=== PATIENT | male | born 1950 | race Caucasian/White ===

== ENCOUNTER 2022-12-06 10:55 | Outpatient (RCR) | payer MEDICARE, SELFPAY ==
[2022-12-05 13:46] LABS: Hemoglobin 7.5 g/dL (14.0-18.0)
[2022-12-05 14:01] LABS: Hematocrit 22.8 % (42.0-54.0)
[2022-12-06 10:55] VITALS: BP 97/62; PULSE 92; RESP 20; TEMP 36.3; O2SAT 100
--- NOTE | 2022-12-06 11:05 | PC.NURSE ---
Patient is here for blood transfusion, blood consent obtained, port accessed with blood return.
[2022-12-06] MEDS: 0.9 % SODIUM CHLORIDE 250 ML 40 ML IV (11:24)
[2022-12-06] MEDS: ACETAMINOPHEN 325 MG TABLET 650 MG PO (11:24)
[2022-12-06] MEDS: DIPHENHYDRAMINE HCL 25 MG CAPSULE PO (11:24)
[2022-12-06 11:50] VITALS: BP 97/62; PULSE 92; RESP 20; TEMP 36.3; O2SAT 100
[2022-12-06 12:07] VITALS: BP 101/62; PULSE 72; RESP 18; TEMP 36.6; O2SAT 99
[2022-12-06 13:07] VITALS: BP 104/68; PULSE 65; RESP 18; TEMP 37; O2SAT 99
--- NOTE | 2022-12-06 13:09 | PC.NURSE ---
Patient is tolerating blood transfusion well without any complaints. His vitals are stable and denies any s/s of infusion reaction. We will continue to monitor.
[2022-12-06 13:35] VITALS: BP 100/63; PULSE 73; RESP 18; TEMP 36.8; O2SAT 100
--- NOTE | 2022-12-06 13:37 | PC.NURSE ---
Patient tolerated blood transfusion well without incident. Vitals remained stable, he states he is feeling good and denies any complaints. Patient was discharged home with .
== END 2022-12-19 23:59 | disposition home or self-care (01) ==
LOC: INF 10:55
DX: D64.9 Anemia, unspecified (principal); C25.9 Malignant neoplasm of pancreas, unspecified
CPT/HCPCS: 36415; 36430; 36591; 85014; 85018; 86850; 86900; 86901; 86920; P9016

== ENCOUNTER 2022-12-21 12:46 | Outpatient (OUT) | payer MEDICARE, SELFPAY ==
--- NOTE | 2022-12-21 13:30 | CT_ITS ---
The [address] [address] Patient Name: TRINITY PERRY MRN: [id number] date: 1950 Sex: M Assigned Patient Location: [facility] Current Patient Location: [facility] Accession/Order Number: [id number] Exam Date: 12/21/2022 13:10 Report Date: 12/21/2022 13:45 At the request of: NON-STAFF PHYSICIAN Procedure: CT angio chest EXAM: CT angio chest HISTORY: chest pain R07.9 shortness of breath. COMPARISON: None. TECHNIQUE: Following intravenous administration of contrast, axial soft tissue and lung windows of the chest were performed with coronal and sagittal reformats. 3-D MIPS reconstructions were created and reviewed. CT dose reduction technique was used including Automated Exposure Control. Findings: The heart is nonenlarged. No pericardial effusion. The thoracic aorta is normal caliber with mild atherosclerotic disease. There is adequate opacification of the pulmonary arteries. No evidence of pulmonary embolism. The central airways are patent. No pneumothorax. No pleural effusion. No focal consolidation. There are subtle nodular tree-in-bud opacities predominantly within the right upper lobe. No enlarged mediastinal, hilar, axillary or supraclavicular lymph nodes. Splenic calcifications likely relating to prior granulomatous disease. Postsurgical changes involving the stomach. Partially visualized stent within the pancreas. Partially visualized left renal cysts. No aggressive sclerotic or lytic osseous lesions. Mild multilevel degenerative spondylosis. CT/CT angio chest IMPRESSION: 1. No pulmonary embolism. 2. Subtle nodular tree-in-bud opacities predominantly within the right upper lobe concerning for bronchiolitis, likely infectious. Electronically authenticated by: CATHY FORMAN Date: 12/21/2022 13:45
== END 2022-12-21 12:47 | disposition home or self-care (01) ==
DX: R07.9 Chest pain, unspecified (principal); R06.09 Other forms of dyspnea; C25.7 Malignant neoplasm of other parts of pancreas; D64.9 Anemia, unspecified; E11.9 Type 2 diabetes mellitus without complications; Z79.4 Long term (current) use of insulin
CPT/HCPCS: 71275; Q9967

== ENCOUNTER 2023-10-03 13:00 | Outpatient (OUT) | payer MEDICARE, SELFPAY ==
--- NOTE | 2023-10-03 13:03 | US_ITS ---
The [address] [address] Patient Name: TRINITY PERRY MRN: [id number] date: 1950 Sex: M Assigned Patient Location: [place] Current Patient Location: [place] Accession/Order Number: [id number] Exam Date: 10/03/2023 13:05 Report Date: 10/03/2023 14:11 At the request of: MISTY WETZEL Procedure: US venous doppler LE BI EXAMINATION: US venous doppler LE BI HISTORY: Leg Swelling COMPARISON: No relevant comparison available. FINDINGS: REGION: Bilateral extremities THROMBI: None. COMPRESSIBILITY: Normal compressibility. FLOW: Normal waveform and antegrade flow between 5 and 20 cm/s. OTHER: None. US/US venous doppler LE BI IMPRESSION: 1. No deep vein thrombus within the right or left lower extremity. Electronically authenticated by: SID MURRAY Date: 10/03/2023 14:11
== END 2023-10-03 13:01 | disposition home or self-care (01) ==
LOC: US 13:00
PROVIDERS: Visit Provider Physician Assistant Medical
DX: M79.89 Other specified soft tissue disorders (principal)
CPT/HCPCS: 93970

== ENCOUNTER 2023-10-16 20:27 | Observation (INO) | payer MEDICARE, SELFPAY ==
[2023-10-16] VITALS (25 sets, daily range): BP systolic 108–135; BP diastolic 60–73; PULSE 60–72; TEMP 36.7–37.3; O2SAT 90–100; BMI 23.8
--- NOTE | 2023-10-16 20:30 | CT_ITS ---
The [address] [address] Patient Name: TRINITY PERRY MRN: [id number] date: 1950 Sex: M Assigned Patient Location: ER Current Patient Location: ER Accession/Order Number: [id number] Exam Date: 10/16/2023 21:15 Report Date: 10/16/2023 21:58 At the request of: BALWINDER MARKER Procedure: CT head/brain wo con EXAM: CT head/brain wo con HISTORY: AMS COMPARISON: None. TECHNIQUE: Axial CT scans through the head were obtained without IV contrast administration. Dose reduction techniques were achieved by using: automated exposure control and/or adjustment of mA and /or kV according to patient size and/or use of iterative reconstruction technique. FINDINGS: There is no evidence of acute intracranial hemorrhage or abnormal extra-axial fluid collection. No mass effect or midline shift is seen. There is no evidence of large acute territorial infarction. There is no hydrocephalus. Mild enlarged ventricles and sulci, consistent with age appropriate cerebral atrophy. Mild decreased attenuation of the supratentorial white matter, likely represents chronic microvascular ischemia. To the limit of CT, the posterior fossa appears unremarkable. No definite acute fracture is identified. Soft tissues are unremarkable. The visualized orbits show no abnormality. The visualized paranasal sinuses show no air-fluid level. Mastoid air cells are clear. CT/CT head/brain wo con IMPRESSION: No CT evidence of acute intracranial abnormality. If there is sufficient clinical concern for acute brain parenchymal pathology, consider MRI for further evaluation. Mild chronic microvascular ischemia and involutional changes. Electronically authenticated by: ELADIO FOOTE Date: 10/16/2023 21:58
--- NOTE | 2023-10-16 20:32 | XR_ITS ---
The [address] [address] Patient Name: TRINITY PERRY MRN: [id number] date: 1950 Sex: M Assigned Patient Location: ER Current Patient Location: ER Accession/Order Number: [id number] Exam Date: 10/16/2023 21:15 Report Date: 10/16/2023 21:37 At the request of: BALWINDER MARKER Procedure: XR chest 1V ONE-VIEW CHEST RADIOGRAPH, 10/16/2023 9:15 PM EDT COMPARISON: None. CLINICAL HISTORY: AMS/confusion and weakness. Patient from home with blood sugar reported low then high by squad. History of pancreatic CA. FINDINGS: Right internal jugular portacatheter in place with tip in superior vena cava. No acute cardiopulmonary disease. No pulmonary edema, pneumothorax, or pleural effusion. Normal heart size. No acute osseous abnormality. XR/XR chest 1V IMPRESSION: No acute abnormality identified. Electronically authenticated by: Isiah THOMAS Date: 10/16/2023 21:37
--- OUTSIDE RECORDS SUMMARY | 2023-10-16 20:38 | XMS_ITS | CCD ---
Author Organization [facility] Care Team Providers Care Cabinet Maker Name Role Phone Giovanni Salinas Primary Care Provider FARA MONACO Referring Unavailable GIOVANNI SALINAS Primary Care Unavailable GIOVANNI SALINAS Primary Care Unavailable GILBERT FRANCO Referring Unavailable PRAVEEN ALVAREZ Admluis enrique Unavailable BRAD, DR EAST Primary Care Unavailable PRAVEEN ALVAREZ Attending Unavailable BRAD, DR EAST Primary Care Unavailable PRAVEEN ALVAREZ Attending Unavailable PRAVEEN ALVAREZ Admitting Unavailable BRAD, DR EAST Primary Care Unavailable PRAVEEN ALVAREZ Attending Unavailable PRAVEEN ALVAREZ Admitting Unavailable BRAD, DR EAST Primary Care Unavailable PRAVEEN ALVAREZ Attending Unavailable PRAVEEN ALVAREZ Admitting Unavailable BRAD, DR EAST Primary Care Unavailable PRAVEEN ALVAREZ Attending Unavailable PRAVEEN ALVAREZ Admitting Unavailable BRAD, DR EAST Primary Care Unavailable PRAVEEN ALVAREZ Attending Unavailable PRAVEEN ALVAREZ Admitting Unavailable BRAD, DR EAST Primary Care Unavailable PRAVEEN ALVAREZ Admitting Unavailable PRAVEEN ALVAREZ Attending Unavailable BRAD, DR ESAT Primary Care Unavailable PRAVEEN ALVAREZ Admitting Unavailable PRAVEEN ALVAREZ Attending Unavailable BRAD, DR EAST Primary Care Unavailable PRAVEEN ALVAREZ Admitting Unavailable PRAVEEN ALVAREZ Attending Unavailable MISC, DR PADRON Consulting Unavailable MISC, DR PADRON Attending Unavailable MISC, DR PADRON Admitting Unavailable BRAD, DR EAST Primary Care Unavailable BRAD, DR EAST Attending Unavailable BRAD, DR EAST Admitting Unavailable BRAD, DR EAST Primary Care Unavailable BRAD, DR EAST Consulting Unavailable MISC, DR PADRON Attending Unavailable MISC, DR PADRON Admitting Unavailable BRAD, DR EAST Primary Care Unavailable BRAD, DR EAST Consulting Unavailable BRAD, DR EAST Admitting Unavailable BRAD, DR EAST Primary Care Unavailable BRAD, DR EAST Consulting Unavailable BRAD, DR EAST Attending Unavailable BRAD, DR EAST Primary Care Unavailable PRAVEEN ALVAREZ Admitting Unavailable PRAVEEN ALVAREZ Attending Unavailable Giovanni Salinas II Primary Care Provider César Leiva Firas Unavailable Mehreen Leivamad Firas Unavailable Giovanni Salinas II Primary Care Provider César Leiva Firas Unavailable Aime SALMON, Josephine Mi Unavailable Grace Bess MD Unavailable [phone] Greta Wetzel PA-C Unavailable Zayda ENCARNACION Consulting Unavailable FARA MONACO Attending Unavailable FARA MONACO Admitting Unavailable GIOVANNI SALINAS II Primary Care Unavailable Giovanni Salinas II Primary Care Provider Cali, César Firas Unavailable Josephine Salomon RN Unavailable Grace Bess MD Unavailable Greta Wetzel PA-C Unavailable César Leiva MD Unavailable MARIO Salinas Primary Care Provider [phone] DANIKA Padilla Emergency Provider [phone] Brad MARTIN MD, Daniel B Primary Care Provider Josephine Salomon RN Unavailable [phone] Jemma Padilla Attending Unavailable Jemma Padilla Admitting Unavailable Giovanni Salinas Primary Care Unavailable GIOVANNI SALINAS Attending Unavailable Ibis Buchanan RD Unavailable Giovanni Salinas MD Unavailable Giovanni Salinas MD Primary Care Provider Brad MARTIN MD, Daniel B Primary Care Provider GIOVANNI SALINAS II Primary Care Unavailable KARAMLOU, GRACE Referring Unavailable KARAMLOU, GRACE Attending Unavailable SALINAS II, GIOVANNI B Primary Care Unavailable KARAMLOU, GRACE Referring Unavailable SALINAS II, GIOVANNI B Primary Care Unavailable KARAMLOU, GRACE Referring Unavailable SALINAS II, GIOVANNI B Primary Care Unavailable YORDY MONCADA Attending Unavailable KARAMLOU, GRACE Referring Unavailable KARAMLOU, GRACE Referring Unavailable SALINAS II, GIOVANNI B Primary Care Unavailable SALINAS II, GIOVANNI B Primary Care Unavailable GRETA WETZEL M Referring Unavailable SALINAS II, GIOVANNI B Primary Care Unavailable GRETA WETZEL M Referring Unavailable GRETA WETZEL Attending Unavailable SALINAS II, GIOVANNI B Primary Care Unavailable GRETA WETZEL M Referring Unavailable SALINAS II, GIOVANNI B Primary Care Unavailable KARAMLOU, GRACE Referring Unavailable SALINAS II, GIOVANNI B Primary Care Unavailable KARAMLOU, GRACE Referring Unavailable KARAMLOU, GRACE Referring Unavailable SALINAS II, GIOVANNI B Primary Care Unavailable KARAMLOU, GRACE Attending Unavailable SALINAS II, GIOVANNI B Primary Care Unavailable KARAMLOU, GRACE Referring Unavailable GRETA WETZEL Attending Unavailable SALINAS II, GIOVANNI B Primary Care Unavailable KARAMLOU, GRACE Referring Unavailable SALINAS II, GIOVANNI B Primary Care Unavailable KARAMLOU, GRACE Referring Unavailable SALINAS II, GIOVANNI B Primary Care Unavailable SALINAS II, GIOVANNI B Primary Care Unavailable GRETA WETZEL M Referring Unavailable KARAMLOU, GRACE Referring Unavailable SALINAS II, GIOVANNI B Primary Care Unavailable KARAMLOU, GRACE Referring Unavailable SALINAS II, GIOVANNI B Primary Care Unavailable KARAMLOU, GRACE Attending Unavailable SALINAS II, GIOVANNI B Primary Care Unavailable KARAMLOU, GRACE Referring Unavailable SALINAS II, GIOVANNI B Primary Care Unavailable KARAMLOU, GRACE Referring Unavailable SALINAS II, GIOVANNI B Primary Care Unavailable GRETA WETZEL M Referring Unavailable SALINAS II, GIOVANNI B Primary Care Unavailable KARAMLOU, GRACE Referring Unavailable GRETA WETZEL Attending Unavailable SALINAS II, GIOVANNI B Primary Care Unavailable KARAMLOU, GRACE Referring Unavailable SALINAS II, GIOVANNI B Primary Care Unavailable YORDY MONCADA Attending Unavailable KARAMLOU, GRACE Referring Unavailable SALINAS II, GIOVANNI B Primary Care Unavailable KARAMLOU, GRACE Referring Unavailable SALINAS II, GIOVANNI B Primary Care Unavailable GRETA WETZEL Referring Unavailable SALINAS II, GIOVANNI B Primary Care Unavailable KARAMLOU, GRACE Referring Unavailable SALINAS II, GIOVANNI B Primary Care Unavailable YORDY MONCADA Attending Unavailable KARAMLOU, GRACE Referring Unavailable SALINAS II, GIOVANNI B Primary Care Unavailable KARAMLOU, GRACE Referring Unavailable SALINAS II, GIOVANNI B Primary Care Unavailable KARAMLOU, GRACE Referring Unavailable SALINAS II, GIOVANNI B Primary Care Unavailable KARAMLOU, GRACE Attending Unavailable KARAMLOU, GRACE Referring Unavailable SALINAS II, GIOVANNI B Primary Care Unavailable KARAMLOU, GRACE Referring Unavailable SALINAS II, GIOVANNI B Primary Care Unavailable KARAMLOU, GRACE Referring Unavailable SALINAS II, GIOVANNI B Primary Care Unavailable KARAMLOU, GRACE Referring Unavailable SALINAS II, GIOVANNI B Primary Care Unavailable KARAMLOU, GRACE Attending Unavailable KARAMLOU, GRACE Referring Unavailable SALINAS II, GIOVANNI B Primary Care Unavailable KARAMLOU, GRACE Referring Unavailable SALINAS II, GIOVANNI B Primary Care Unavailable GRETA WETZEL Referring Unavailable SALINAS II, GIOVANNI B Primary Care Unavailable KARAMLOU, GRACE Referring Unavailable SALINAS II, GIOVANNI B Primary Care Unavailable SALINAS II, GIOVANNI B Primary Care Unavailable KARAMLOU, GRACE Referring Unavailable IBIS BUCHANAN Attending Unavailabl e SALINAS II, GIOVANNI B Primary Care Unavailable KARAMLOU, GRACE Referring Unavailable SALINAS II, GIOVANNI B Primary Care Unavailable KARAMLOU, GRACE Referring Unavailable YORDY MONCADA Attending Unavailable SALINAS II, GIOVANNI B Primary Care Unavailable KARAMLOU, GRACE Referring Unavailable SALINAS II, GIOVANNI B Primary Care Unavailable KARAMLOU, GRACE Referring Unavailable SALINAS II, GIOVANNI B Primary Care Unavailable KARAMLOU, GRACE Referring Unavailable SALINAS II, GIOVANNI B Primary Care Unavailable KARAMLOU, GRACE Referring Unavailable SALINAS II, GIOVANNI B Primary Care Unavailable KARAMLOU, GRACE Referring Unavailable IBIS BUCHANAN Attending Unavailabl e SALINAS II, GIOVANNI B Primary Care Unavailable GRETA WETZEL Referring Unavailable SALINAS II, GIOVANNI B Primary Care Unavailable KARAMLOU, GRACE Referring Unavailable SALINAS II, GIOVANNI B Primary Care Unavailable KARAMLOU, GRACE Attending Unavailable KARAMLOU, GRACE Referring Unavailable SALINAS II, GIOVANNI B Primary Care Unavailable KARAMLOU, GRACE Referring Unavailable SALINAS II, GIOVANNI B Primary Care Unavailable GRETA WETZEL M Referring Unavailable SALINAS II, GIOVANNI B Primary Care Unavailable GRETA WETZEL M Referring Unavailable SALINAS II, GIOVANNI B Primary Care Unavailable KARAMLOU, GRACE Referring Unavailable GRETA WETZEL M Attending Unavailable KARAMLOU, GRACE Referring Unavailable SALINAS II, GIOVANNI B Primary Care Unavailable YORDY MONCADA Attending Unavailable KARAMLOU, GRACE Referring Unavailable SALINAS II, GIOVANNI B Primary Care Unavailable KARAMLOU, GRACE Referring Unavailable SALINAS II, GIOVANNI B Primary Care Unavailable KARAMLOU, GRACE Referring Unavailable SALINAS II, GIOVANNI B Primary Care Unavailable SALINAS II, GIOVANNI B Primary Care Unavailable KARAMLOU, GRACE Attending Unavailable KARAMLOU, GRACE Referring Unavailable SALINAS II, GIOVANNI B Primary Care Unavailable KARAMLOU, GRACE Attending Unavailable KARAMLOU, GRACE Referring Unavailable SALINAS II, GIOVANNI B Primary Care Unavailable KARAMLOU, GRACE Referring Unavailable SALINAS II, GIOVANNI B Primary Care Unavailable KARAMLOU, GRACE Referring Unavailable SALINAS II, GIOVANNI B Primary Care Unavailable KARAMLOU, GRACE Referring Unavailable GRETA WETZEL Attending Unavailable KARAMLOU, GRACE Referring Unavailable SALINAS II, GIOVANNI B Primary Care Unavailable KARAMLOU, GRACE Attending Unavailable SALINAS II, GIOVANNI B Primary Care Unavailable GRETA WETZEL M Referring Unavailable SALINAS II, GIOVANNI B Primary Care Unavailable KARAMLOU, GRAEC Referring Unavailable SALINAS II, GIOVANNI B Primary Care Unavailable KARAMLOU, GRACE Referring Unavailable GRETA WETZEL Attending Unavailable SALINAS II, GIOVANNI B Primary Care Unavailable GRETA WETZEL M Referring Unavailable SALINAS II, GIOVANNI B Primary Care Unavailable KARAMLOU, GRACE Referring Unavailable SALINAS II, GIOVANNI B Primary Care Unavailable KARAMLOU, GRACE Referring Unavailable GRETA WETZEL Attending Unavailable SALINAS II, GIOVANNI B Primary Care Unavailable KARAMLOU, GRACE Referring Unavailable SALINAS II, GIOVANNI B Primary Care Unavailable SALINAS II, GIOVANNI B Primary Care Unavailable KARAMLOU, GRACE Referring Unavailable GRETA WETZEL M Attending Unavailable KARAMLOU, GRACE Referring Unavailable SALINAS II, GIOVANNI B Primary Care Unavailable SALINAS II, GIOVANNI B Primary Care Unavailable KARAMLOU, GRACE Referring Unavailable IBIS BUCHANAN Attending Unavailabl e SALINAS II, GIOVANNI B Primary Care Unavailable KARAMLOU, GRACE Referring Unavailable SALINAS II, GIOVANNI B Primary Care Unavailable RASHARDGRETA Referring Unavailable SALINAS II, GIOVANNI B Primary Care Unavailable KARAMLOU, GRACE Referring Unavailable SALINAS II, GIOVANNI B Primary Care Unavailable KARAMLOU, GRACE Referring Unavailable SALINAS II, GIOVANNI B Primary Care Unavailable KARAMLOU, GRACE Referring Unavailable KARAMLOU, GRACE Attending Unavailable SALINAS II, GIOVANNI B Primary Care Unavailable KARAMLOU, GRACE Referring Unavailable SALINAS II, GIOVANNI B Primary Care Unavailable KARAMLOU, GRACE Attending Unavailable KARAMLOU, GRACE Referring Unavailable SALINAS II, GIOVANNI B Primary Care Unavailable KARAMLOU, GRACE Referring Unavailable SALINAS II, GIOVANNI B Primary Care Unavailable KARAMLOU, GRACE Referring Unavailable SALINAS II, GIOVANNI B Primary Care Unavailable SALINAS II, GIOVANNI B Primary Care Unavailable KARAMLOU, GRACE Attending Unavailable KARAMLOU, GRACE Referring Unavailable SALINAS II, GIOVANNI B Primary Care Unavailable KARAMLOU, GRACE Referring Unavailable Medications Current Medications Medication Drug Class(es) Dates Sig (Normalized) Sig (Original) acetaminophen 325 mg / oxyCODONE hydrochloride 5 mg oral tablet (1 source) Opioid Agonist Start: 03-18-2020 End: 04-17-2020 take 1 tablet by mouth every six hours as needed for pain oxyCODONE-acetami nophen (PERCOCET) 5-325 MG per tablet Indications: 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 100 tablet 0 03/18/2020 04/17/2020 Active amylases 24388 unt / endopeptidases 28948 unt / lipase 6000 unt delayed release oral capsule (2 sources) take 1 capsule by mouth three times daily at mealtime emekfl-sqxzkcjl-[id number] mylase (CREON) 6000 units delayed release capsule Take 1 capsule by mouth 3 times daily (with meals) 0 Active apixaban 5 mg oral tablet (1 source) Factor Xa Inhibitor take 1 tablet by mouth twice daily apixaban (ELIQUIS) 5 MG TABS tablet Take 5 mg by mouth 2 times daily 0 Active Blood Glucose Monitoring Suppl (True Metrix Meter) w/Device kit (1 source) Start: 10-26-2022 Blood Glucose Monitoring Suppl (True Metrix Meter) w/Device kit use to test BLOOD SUGAR TWICE DAILY 0 10/26/2022 Active cholecalciferol, vitamin D3, (VITAMIN D3 ORAL) (20 sources) take 1000 [IU] by mouth once daily cholecalciferol, vitamin D3, (VITAMIN D3 ORAL) Take 1,000 Units by mouth once daily. 0 Active cholecalciferol, vitamin D3, (VITAMIN D3 ORAL) Take by mouth once daily. 0 Active Comment on above: Take by mouth once d aily. Take 1,000 Units by mouth once daily. Continuous Blood Gluc Environmental Coordinator (Dexcom G7 Environmental Coordinator) device (1 source) Start: 04-17-2023 End: 04-16-2024 Continuous Blood Gluc Environmental Coordinator (Dexcom G7 Environmental Coordinator) device Indications: Type 2 diabetes mellitus without complication, without long-term current use of insulin (CMS/HCC) 1 Device yearly. 1 each 0 04/17/2023 04/16/2024 Active Continuous Blood Gluc Sensor (Dexcom G7 Sensor) misc (1 source) Start: 04-17-2023 End: 04-16-2024 Continuous Blood Gluc Sensor (Dexcom G7 Sensor) misc Indications: Type 2 diabetes mellitus without complication, without long-term current use of insulin (CMS/HCC) 1 Application Every 10 (ten) days. 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) For CT ABD/PEL W IVCON Routine order Administer, As Directed One Time Only, via Oral, Rectal, both Oral and Rectal, Enteric Tube, Stoma or Indwelling Catheter, Enteric Contrast as designated per enteric contrast guidelines 1 Each 0 08/02/2023 08/03/2023 Active Start: 05-05-2023 End: 05-06-2023 enteric contrast (will be pr ovided with radiology test) Indications: 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) For CT ABD/PEL W IVCON Routine order Administer, As Directed One Time Only, via Oral, Rectal, both Oral and Rectal, Enteric Tube, Stoma or Indwelling Catheter, Enteric Contrast as designated per enteric contrast guidelines 1 Each 0 05/05/2023 05/06/2023 Active Start: 09-29-2022 End: 09-30-2022 enteric contrast (will be pr ovided with radiology test) Indications: 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) For CT ABD/PEL W IVCON Routine order Administer, As Directed One Time Only, via Oral, Rectal, both Oral and Rectal, Enteric Tube, Stoma or Indwelling Catheter, Enteric Contrast as designated per enteric contrast guidelines 1 Each 0 09/29/2022 09/30/2022 Active Start: 06-29-2022 End: 06-30-2022 enteric contrast (will be pr ovided with radiology test) For CT ABD/PEL W IVCON Routine order Administer, As Directed One Time Only, via Oral, Rectal, both Oral and Rectal, Enteric Tube, Stoma or Indwelling Catheter, Enteric Contrast as designated per enteric contrast guidelines 1 Each 0 06/29/2022 06/30/2022 Active Start: 05-11-2022 End: 05-12-2022 enteric contrast (will be pr ovided with radiology test) For CT ABD/PEL W IVCON Routine order Administer, As Directed One Time Only, via Oral, Rectal, both Oral and Rectal, Enteric Tube, Stoma or Indwelling Catheter, Enteric Contrast as designated per enteric contrast guidelines 1 Each 0 05/11/2022 05/12/2022 Start: 05-11-2022 End: 05-12-2022 enteric contrast (will be pr ovided with radiology test) For CT ABD/PEL W IVCON Routine order Administer, As Directed One Time Only, via Oral, Rectal, both Oral and Rectal, Enteric Tube, Stoma or Indwelling Catheter, Enteric Contrast as designated per enteric contrast guidelines 1 Each 0 05/11/2022 05/12/2022 Active Comment on above: For CT ABD/PEL W IVC ON Routine order Administer, As Directed One Time Only, via Oral, Rectal, both Oral and Rectal, Enteric Tube, Stoma or Indwelling Catheter, Enteric Contrast as designated per enteric contrast guidelines finasteride 5 mg oral tablet (20 sources) 5-alpha Reductase Inhibitor Start: take 1 tablet by mouth in the morning finasteride (Proscar) 5 MG tablet Indications: Benign prostatic hyperplasia without lower urinary tract symptoms Take 1 tablet (5 mg) by mouth in the morning. 90 tablet 3 02/13/2023 Active Comment on above: Take 5 mg by mouth o nce daily. Insulin Aspart U-100 (Novolog Flexpen U-100 Insulin) 100 unit/mL (3 mL) Insulin Pen (1 source) Start: inject 6 [IU] by subcutaneous injection once daily in the morning, then inject 8 [IU] by subcutaneous injection at lunch, then inject 10 [IU] by subcutaneous injection at dinner Insulin Aspart U-100 (Novolog Flexpen U-100 Insulin) 100 unit/mL (3 mL) Insulin Pen Active 6 UNIT SUBCUT Every morning December 15, 2022 12:00am 6 units with breakfast, 8 units with lunch, 10 units with dinner 3 ml insulin aspart, human 100 unt/ml pen injector (1 source) Insulin Analog Start: NovoLOG FLEXPEN 100 UNIT/ML pen INJECT 6-8-10 UNITS according to meal size plus sliding scale DIRECTED (expect up to 30 UNITS DAILY) 0 11/25/2022 Active 1.5 ml insulin glargine 300 unt/ml pen injector (20 sources) Insulin Analog Start: inject 26 [IU] by subcutaneous injection once daily at bedtime Toujeo SoloStar 300 UNIT/ML injection INJECT 26 UNITS SUBCUTANEOUSLY AT BEDTIME DAILY 0 11/24/2022 Active inject 300 [IU] by s ubcutaneous injection once daily insulin glargine U-300 conc (TOUJEO MAX U-300 SOLOSTAR) 300 unit/mL (3 mL) inpn Inject 300 mL subcutaneously once daily. At night 0 Active insulin glargine (LANTUS) 100 UNIT/ML injection vial Inject 12 Units into the skin nightly 0 Active Comment on above: Inject 300 mL subcut aneously once daily. At night 3 ml insulin isophane, human 70 unt/ml / insulin, regular, human 30 unt/ml pen injector (20 sources) Insulin Start: End: inject 25 [IU] by subcutaneous injection in the morning NOVOLIN 70-30 FLEXPEN U-100 100 unit/mL (70-30) pen INJECT 25 UNITS SUBCUTANEOUSLY IN THE MORNING then INJECT 25 UNITS SUBCUTANEOUSLY IN THE EVENING before a meal 0 11/17/2022 Active Comment on above: INJECT 25 UNITS SUBC UTANEOUSLY IN THE MORNING then INJECT 25 UNITS SUBCUTANEOUSLY IN THE EVENING before a meal iv contrast (will be provided with radiology test) (20 sources) Start: End: iv contrast (will be provided with radiology test) Indications: 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 Discontinue saline lock post exam. If Pt. has a central line or IVAD, may access for administration according to line specific nursing protocol. Once exam is complete flush line and de-access according to line specific nursing protocol in the CT contrast administration guidelines link. 1 Each 0 08/02/2023 08/03/2023 Active Start: 08-02-2023 End: 08-03-2023 iv contrast (will be provide d with radiology test) Indications: 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) CT ABD/PEL -Inject, intravenously, once for 1 dose.No IV access, insert saline lock prior to the beginning of sedation, infusion, injection of imaging exam. Discontinue saline lock post exam. If Pt. has a central line or IVAD, may access for administration according to line specific nursing protocol. Once exam is complete flush line and de-access according to line specific nursing protocol in the CT contrast administration guidelines link. 1 Each 0 08/02/2023 08/03/2023 Active Start: 05-05-2023 End: 05-06-2023 iv contrast (will be provide d with radiology test) Indications: 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 Discontinue saline lock post exam. If Pt. has a central line or IVAD, may access for administration according to line specific nursing protocol. Once exam is complete flush line and de-access according to line specific nursing protocol in the CT contrast administration guidelines link. 1 Each 0 05/05/2023 05/06/2023 Active Start: 05-05-2023 End: 05-06-2023 iv contrast (will be provide d with radiology test) Indications: 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) CT ABD/PEL -Inject, intravenously, once for 1 dose.No IV access, insert saline lock prior to the beginning of sedation, infusion, injection of imaging exam. Discontinue saline lock post exam. If Pt. has a central line or IVAD, may access for administration according to line specific nursing protocol. Once exam is complete flush line and de-access according to line specific nursing protocol in the CT contrast administration guidelines link. 1 Each 0 05/05/2023 05/06/2023 Active Start: 12-21-2022 End: 12-22-2022 iv contrast (will be provide d with radiology test) Indications: Chest pain, unspecified type , LINDSEY (dyspnea on exertion) , 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) , Anemia, unspecified type , Type 2 diabetes mellitus without complication, with long-term current use of insulin (HCC) CT Chest PE -Inject, intravenously, once for 1 dose.No IV access, insert saline lock prior to the beginning of sedation, infusion, injection of imaging exam. Discontinue saline lock post exam. If Pt. has a central line or IVAD, may access for administration according to line specific nursing protocol. Once exam is complete flush line and de-access according to line specific nursing protocol in the CT contrast administration guidelines link. 1 Each 0 12/21/2022 12/22/2022 Active Start: 09-29-2022 End: 09-30-2022 iv contrast (will be provide d with radiology test) Indications: 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 Discontinue saline lock post exam. If Pt. has a central line or IVAD, may access for administration according to line specific nursing protocol. Once exam is complete flush line and de-access according to line specific nursing protocol in the CT contrast administration guidelines link. 1 Each 0 09/29/2022 09/30/2022 Active Start: 09-29-2022 End: 09-30-2022 iv contrast (will be provide d with radiology test) Indications: 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) CT ABD/PEL -Inject, intravenously, once for 1 dose.No IV access, insert saline lock prior to the beginning of sedation, infusion, injection of imaging exam. Discontinue saline lock post exam. If Pt. has a central line or IVAD, may access for administration according to line specific nursing protocol. Once exam is complete flush line and de-access according to line specific nursing protocol in the CT contrast administration guidelines link. 1 Each 0 09/29/2022 09/30/2022 Active Start: 06-29-2022 End: 06-30-2022 iv contrast (will be provide d with radiology test) CT Chest W -Inject, intravenously, once for 1 dose.No IV access, insert saline lock prior to the beginning of sedation, infusion, injection of imaging exam. Discontinue saline lock post exam. If Pt. has a central line or IVAD, may access for administration according to line specific nursing protocol. Once exam is complete flush line and de-access according to line specific nursing protocol in the CT contrast administration guidelines link. 1 Each 0 06/29/2022 06/30/2022 Active Start: 06-29-2022 End: 06-30-2022 iv contrast (will be provide d with radiology test) CT ABD/PEL -Inject, intravenously, once for 1 dose.No IV access, insert saline lock prior to the beginning of sedation, infusion, injection of imaging exam. Discontinue saline lock post exam. If Pt. has a central line or IVAD, may access for administration according to line specific nursing protocol. Once exam is complete flush line and de-access according to line specific nursing protocol in the CT contrast administration guidelines link. 1 Each 0 06/29/2022 06/30/2022 Active Start: 05-11-2022 End: 05-12-2022 iv contrast (will be provide d with radiology test) CT Chest W -Inject, intravenously, once for 1 dose.No IV access, insert saline lock prior to the beginning of sedation, infusion, injection of imaging exam. Discontinue saline lock post exam. If Pt. has a central line or IVAD, may access for administration according to line specific nursing protocol. Once exam is complete flush line and de-access according to line specific nursing protocol in the CT contrast administration guidelines link. 1 Each 0 05/11/2022 05/12/2022 Start: 05-11-2022 End: 05-12-2022 iv contrast (will be provide d with radiology test) CT ABD/PEL -Inject, intravenously, once for 1 dose.No IV access, insert saline lock prior to the beginning of sedation, infusion, injection of imaging exam. Discontinue saline lock post exam. If Pt. has a central line or IVAD, may access for administration according to line specific nursing protocol. Once exam is complete flush line and de-access according to line specific nursing protocol in the CT contrast administration guidelines link. 1 Each 0 05/11/2022 05/12/2022 Start: 05-11-2022 End: 05-12-2022 iv contrast (will be provide d with radiology test) CT Chest W -Inject, intravenously, once for 1 dose.No IV access, insert saline lock prior to the beginning of sedation, infusion, injection of imaging exam. Discontinue saline lock post exam. If Pt. has a central line or IVAD, may access for administration according to line specific nursing protocol. Once exam is complete flush line and de-access according to line specific nursing protocol in the CT contrast administration guidelines link. 1 Each 0 05/11/2022 05/12/2022 Active Start: 05-11-2022 End: 05-12-2022 iv contrast (will be provide d with radiology test) CT ABD/PEL -Inject, intravenously, once for 1 dose.No IV access, insert saline lock prior to the beginning of sedation, infusion, injection of imaging exam. Discontinue saline lock post exam. If Pt. has a central line or IVAD, may access for administration according to line specific nursing protocol. Once exam is complete flush line and de-access according to line specific nursing protocol in the CT contrast administration guidelines link. 1 Each 0 05/11/2022 05/12/2022 Active Start: 02-22-2022 End: 02-23-2022 iv contrast (will be provide d with radiology test) CT Chest W -Inject, intravenously, once for 1 dose.No IV access, insert saline lock prior to the beginning of sedation, infusion, injection of imaging exam. Discontinue saline lock post exam. If Pt. has a central line or IVAD, may access for administration according to line specific nursing protocol. Once exam is complete flush line and de-access according to line specific nursing protocol in the CT contrast administration guidelines link. 1 Each 0 02/22/2022 02/23/2022 Start: 02-22-2022 End: 02-23-2022 iv contrast (will be provide d with radiology test) CT Chest W -Inject, intravenously, once for 1 dose.No IV access, insert saline lock prior to the beginning of sedation, infusion, injection of imaging exam. Discontinue saline lock post exam. If Pt. has a central line or IVAD, may access for administration according to line specific nursing protocol. Once exam is complete flush line and de-access according to line specific nursing protocol in the CT contrast administration guidelines link. 1 Each 0 02/22/2022 02/23/2022 Active Start: 07-21-2021 End: 02-22-2022 iv contrast (will be provide d with radiology test) Indications: Other chronic pancreatitis (HCC) CT PANCREAS W Inject, intravenously, once for 1 dose.No IV access, insert saline lock prior to the beginning of sedation, infusion, injection of imaging exam. Discontinue saline lock post exam. If Pt. has a central line or IVAD, may access for administration according to line specific nursing protocol. Once exam is complete flush line and de-access according to line specific nursing protocol in the CT contrast administration guidelines link. 1 Each 0 07/21/2021 02/22/2022 Discontinued Start: 07-21-2021 iv contrast (w ill be provided with radiology test) Indications: Other chronic pancreatitis (HCC) CT PANCREAS W Inject, intravenously, once for 1 dose.No IV access, insert saline lock prior to the beginning of sedation, infusion, injection of imaging exam. Discontinue saline lock post exam. If Pt. has a central line or IVAD, may access for administration according to line specific nursing protocol. Once exam is complete flush line and de-access according to line specific nursing protocol in the CT contrast administration guidelines link. 1 Each 0 07/21/2021 Active Start: 07-08-2021 End: 02-22-2022 iv contrast (will be provide d with radiology test) Indications: Other chronic pancreatitis (HCC) , Adenocarcinoma of pancreas (HCC) MRI PANC/SADIE Inject, intravenously, once for 1 dose. No IV access, insert saline lock prior to the beginning of sedation, infusion, injection of imaging exam. Discontinue saline lock post exam. If Pt. has a central line or IVAD, may access for administration according to line specific nursing protocol. Once exam is complete flush line and de-access according to line specific nursing protocol in the MR contrast administration guidelines link. 1 Each 0 07/08/2021 02/22/2022 Discontinued Start: 07-08-2021 iv contrast (w ill be provided with radiology test) Indications: Other chronic pancreatitis (HCC) , Adenocarcinoma of pancreas (HCC) MRI PANC/SADIE Inject, intravenously, once for 1 dose. No IV access, insert saline lock prior to the beginning of sedation, infusion, injection of imaging exam. Discontinue saline lock post exam. If Pt. has a central line or IVAD, may access for administration according to line specific nursing protocol. Once exam is complete flush line and de-access according to line specific nursing protocol in the MR contrast administration guidelines link. 1 Each 0 07/08/2021 Active Start: 02-11-2021 End: 02-22-2022 iv contrast (will be provide d with radiology test) MRI PANC/SADIE Inject, intravenously, once for 1 dose. No IV access, insert saline lock prior to the beginning of sedation, infusion, injection of imaging exam. Discontinue saline lock post exam. If Pt. has a central line or IVAD, may access for administration according to line specific nursing protocol. Once exam is complete flush line and de-access according to line specific nursing protocol in the MR contrast administration guidelines link. 1 Each 0 02/11/2021 02/22/2022 Discontinued Start: 02-11-2021 iv contrast (w ill be provided with radiology test) MRI PANC/SADIE Inject, intravenously, once for 1 dose. No IV access, insert saline lock prior to the beginning of sedation, infusion, injection of imaging exam. Discontinue saline lock post exam. If Pt. has a central line or IVAD, may access for administration according to line specific nursing protocol. Once exam is complete flush line and de-access according to line specific nursing protocol in the MR contrast administration guidelines link. 1 Each 0 02/11/2021 Active Comment on above: MRI PANC/SADIE Inject, intravenously, once for 1 dose. No IV access, insert saline lock prior to the beginning of sedation, infusion, injection of imaging exam. Discontinue saline lock post exam. If Pt. has a central line or IVAD, may access for administration according to line specific nursing protocol. Once exam is complete flush line and de-access according to line specific nursing protocol in the MR contrast administration guidelines link. CT PANCREAS W Inject , intravenously, once for 1 dose.No IV access, insert saline lock prior to the beginning of sedation, infusion, injection of imaging exam. Discontinue saline lock post exam. If Pt. has a central line or IVAD, may access for administration according to line specific nursing protocol. Once exam is complete flush line and de-access according to line specific nursing protocol in the CT contrast administration guidelines link. CT Chest W -Inject, intravenously, once for 1 dose.No IV access, insert saline lock prior to the beginning of sedation, infusion, injection of imaging exam. Discontinue saline lock post exam. If Pt. has a central line or IVAD, may access for administration according to line specific nursing protocol. Once exam is complete flush line and de-access according to line specific nursing protocol in the CT contrast administration guidelines link. CT ABD/PEL -Inject, intravenously, once for 1 dose.No IV access, insert saline lock prior to the beginning of sedation, infusion, injection of imaging exam. Discontinue saline lock post exam. If Pt. has a central line or IVAD, may access for administration according to line specific nursing protocol. Once exam is complete flush line and de-access according to line specific nursing protocol in the CT contrast administration guidelines link. CT Chest PE -Inject, intravenously, once for 1 dose.No IV access, insert saline lock prior to the beginning of sedation, infusion, injection of imaging exam. Discontinue saline lock post exam. If Pt. has a central line or IVAD, may access for administration according to line specific nursing protocol. Once exam is complete flush line and de-access according to line specific nursing protocol in the CT contrast administration guidelines link. levoFLOXacin 500 mg oral tablet (7 sources) Quinolone Antimicrobial Start: 10-03-19 End: 10-10-19 24 take 1 tablet by mouth once daily levoFLOXacin (LEVAQUIN) 500 mg tablet Take 1 tablet by mouth once daily for 7 days. 7 tablet 0 10/03/2023 10/10/2023 Active Start: 04-27-2023 take 1 tablet by memo th once daily in the morning levoFLOXacin (LEVAQUIN) 500 mg tablet Take 500 mg by mouth every morning. 0 04/27/2023 Active Comment on above: Take 500 mg by mouth every morning. meloxicam 7.5 mg oral tablet (7 sources) Nonsteroidal Anti-inflammatory Drug Start: 09-29-2022 End: 10-29-2022 take 1 tablet by mouth in the morning meloxicam (Mobic) 7.5 MG tablet Take 7.5 mg by mouth in the morning. 0 09/29/2022 Active Start: 08-02-2022 End: 09-02-2022 take 1 tablet by mouth once daily meloxicam (MOBIC) 7.5 mg tablet Take 1 tablet by mouth once daily. 30 tablet 0 08/03/2022 09/02/2022 Active Comment on above: Take 1 tablet by memo th once daily. multivit-min/ferrous fumarate (MULTI VITAMIN ORAL) (20 sources) multivit-min/cj everett fumarate (MULTI VITAMIN ORAL) Take by mouth once daily. 0 Active Comment on above: Take by mouth once d aily. ondansetron 8 mg oral tablet (20 sources) Serotonin-3 Receptor Antagonist Start: take 1 tablet by mouth every eight hours as needed ondansetron (ZOFRAN) 8 mg tablet Take 1 tablet by mouth every 8 hours as needed for nausea/vomiting. 90 tablet 2 06/07/2023 Active Start: 03-04-2022 take 1 tablet by memo th every eight hours as needed ondansetron (ZOFRAN) 8 mg tablet Take 1 tablet by mouth every 8 hours as needed for nausea/vomiting. 90 tablet 2 03/04/2022 Active Comment on above: Take 1 tablet by memo th every 8 hours as needed for nausea/vomiting. pantoprazole 20 mg delayed release oral tablet (20 sources) Proton Pump Inhibitor Start: 2019 End: 2023 take 1 tablet by mouth once daily pantoprazole DR (PROTONIX) 20 mg tablet Indications: Adenocarcinoma of head of pancreas (HCC) Take 1 tablet by mouth once daily. 30 tablet 5 03/05/2020 12/22/2023 Active Comment on above: Take 1 tablet by memo th once daily. Probiotic Product (PROBIOTIC ADVANCED PO) (1 source) take 1 capsule by mouth twice daily Probiotic Product (PROBIOTIC ADVANCED PO) Take 1 capsule by mouth 2 times daily 0 Active prochlorperazine 10 mg oral tablet (20 sources) Phenothiazine Start: 2023 take 1 tablet by mouth every six hours as needed prochlorperazine (COMPAZINE) 10 mg tablet Take 1 tablet by mouth every 6 hours as needed. 100 tablet 2 06/07/2023 Active Start: 03-04-2022 take 1 tablet by memo th every six hours as needed prochlorperazine (COMPAZINE) 10 mg tablet Take 1 tablet by mouth every 6 hours as needed. 100 tablet 2 03/04/2022 Active Comment on above: Take 1 tablet by memo th every 6 hours as needed. sertraline 25 mg oral tablet (9 sources) Serotonin Reuptake Inhibitor Start: 4 End: 4 take 1 tablet by mouth once daily sertraline (ZOLOFT) 25 mg tablet Take 1 tablet by mouth once daily. 30 tablet 2 10/03/2023 01/01/2024 Active tamsulosin hydrochloride 0.4 mg oral capsule (20 sources) alpha-Adrenergic Quinn Start: 2 take 0.4 mg by mouth once daily tamsulosin (FLOMAX) 0.4 mg Take 0.4 mg by mouth once daily. 0 02/12/2022 Active Start: 02-12-2022 take 1 capsule by mo [facility] every twenty-four hours in the morning tamsulosin (Flomax) 0.4 MG 24 hr capsule Take 0.4 mg by mouth in the morning. 0 02/12/2022 Active take 1 capsule by mouth once alicia ly tamsulosin (FLOMAX) 0.4 MG capsule Take 0.4 mg by mouth daily 0 Active Comment on above: Take 0.4 mg by mouth once daily. Zinc (20 sources) take 50 ug by mouth once daily ZINC ORAL Take 50 mcg by mouth once daily. 0 Active ZINC ORAL Take b y mouth once daily. 0 Active Comment on above: Take by mouth once d aily. Take 50 mcg by mouth once daily. Completed/Discontinued Medications Medication Drug Class(es) Dates Sig (Normalized) Sig (Original) acetaminophen 325 mg oral tablet (8 sources) Start: 05-12-2020 End: 02-22-2022 take 2 tablets by mouth every six hours as needed acetaminophen (TYLENOL) 325 mg tablet Take 2 tablets by mouth every 6 hours as needed for Pain for up to 30 doses. 30 tablet 0 05/12/2020 02/22/2022 Discontinued (Discontinued by Patient) take 2 tablets by mo uth every six hours as needed for pain acetaminophen (TYLENOL) 325 MG tablet Ta ke 650 mg by mouth every 6 hours as needed for Pain 0 Active Comment on above: Take 2 tablets by mo uth every 6 hours as needed for Pain for up to 30 doses. azithromycin 250 mg oral tablet (10 sources) Macrolide Antimicrobial Start: 03-30-20 End: 05-05-20 take 2 tablets by mouth once daily, then take 1 tablet by mouth once daily azithromycin (ZITHROMAX Z-TORITO) 250 mg tablet Take two (2) tablets by mouth the first day and then one (1) tablet daily for 4 days. 6 tablet 0 03/30/2023 05/05/2023 Discontinued (Course of therapy completed) Start: 12-21-2022 End: 02-01-2023 take 2 tablets by mouth once daily, then take 1 tablet by mouth once daily azithromycin (ZITHROMAX Z-TORITO) 250 mg tablet Take two (2) tablets by mouth the first day and then one (1) tablet daily for 4 days. 6 tablet 0 12/21/2022 02/01/2023 Discontinued (Course of therapy completed) Comment on above: Take two (2) tablets by mouth the first day and then one (1) tablet daily for 4 days. codeine phosphate 2 mg/ml / guaiFENesin 20 mg/ml oral solution (3 sources) Opioid Agonist Start: 3 take 5 mL by mouth every six hours as needed for cough codeine-guaiFENesin (ROBITUSSIN AC) 10-100 mg/5 mL syrup TAKE 5ml BY MOUTH EVERY 6 HOURS NEEDED FOR COUGH 0 05/01/2023 Active Comment on above: TAKE 5ml BY MOUTH EV MARQUEZ 6 HOURS NEEDED FOR COUGH dexAMETHasone 10 mg in NaCl 0.9% 50 mL (DECADRON) (2 sources) Start: 4 End: 4 dexAMETHasone 10 mg in NaCl 0.9% 50 mL (DECADRON) Start: 09-13-2023 End: 09-13-2023 dexAMETHasone 10 mg in NaCl 0.9% 50 mL (DECADRON) doxazosin 4 mg oral tablet (4 sources) alpha-Adrenergic Quinn Start: 12-27-2020 End: 02-22-2022 take 1 tablet by mouth once daily at bedtime doxazosin (CARDURA) 4 mg tablet Take 1 tablet by mouth daily at bedtime. 30 tablet 0 12/27/2020 02/22/2022 Discontinued (Discontinued by Patient) Comment on above: Take 1 tablet by memo daily at bedtime. fluorouracil (ADRUCIL) 4,500 mg in NaCl 0.9% 102 mL in empty bag (2 sources) Start: 10-11-2023 End: 10-11-2023 fluorouracil (ADRUCIL) 4,500 mg in NaCl 0.9% 102 mL in empty bag Start: 09-13-2023 End: 09-13-2023 fluorouracil (ADRUCIL) 4,500 mg in NaCl 0.9% 102 mL in empty bag gabapentin 300 mg oral capsule (20 sources) Anti-epileptic Agent Start: 02-08-2023 End: 05-05-2023 take 1 capsule by mouth once daily at bedtime gabapentin (NEURONTIN) 300 mg capsule Take 1 capsule by mouth daily at bedtime for 30 days. 30 capsule 0 04/05/2023 Active Start: 04-20-2022 End: 05-04-2022 take 1 capsule by mouth once daily at bedtime gabapentin (NEURONTIN) 300 mg capsule Take 1 capsule by mouth daily at bedtime for 14 days. 30 capsule 2 04/20/2022 04/27/2022 Discontinued (Side Effects) Start: 03-16-2022 End: 04-13-2022 take 1 capsule by mouth once daily at bedtime gabapentin (NEURONTIN) 300 mg capsule Take 1 capsule by mouth daily at bedtime for 14 days. 30 capsule 2 03/30/2022 04/13/2022 Active Comment on above: Take 1 capsule by mo uth daily at bedtime for 14 days. Take 1 capsule by mo uth daily at bedtime for 30 days. hyoscyamine sulfate 0.125 mg sublingual tablet (2 sources) Start: 10-11-2023 End: 10-11-2023 hyoscyamine sublingual 0.25 mg tab(s) (LEVSIN SL) Start: 09-13-2023 End: 09-13-2023 hyoscyamine sublingual 0.25 mg tab(s) (LEVSIN SL) irinotecan liposomal (ONIVYD E) 129 mg in NaCl 0.9% 570 mL (2 sources) Start: 10-11-2023 End: 10-11-2023 irinotecan liposomal (ONIVYD E) 129 mg in NaCl 0.9% 570 mL Start: 09-13-2023 End: 09-13-2023 irinotecan liposomal (ONIVYD E) 129 mg in NaCl 0.9% 570 mL leucovorin 756 mg in NaCl 0. 9% 95.8 mL (2 sources) Start: 10-11-2023 End: 10-11-2023 leucovorin 756 mg in NaCl 0. 9% 95.8 mL Start: 09-13-2023 End: 09-13-2023 leucovorin 756 mg in NaCl 0. 9% 95.8 mL 5 ml palonosetron 0.05 mg/ml injection (2 sources) Serotonin-3 Receptor Antagonist Start: 10-11-2023 End: 10-11-2023 palonosetron 0.25 mg injection (ALOXI) Start: 09-13-2023 End: 09-13-2023 palonosetron 0.25 mg injecti on (ALOXI) TRUE METRIX GLUCOSE METER (20 sources) Start: 10-26-2022 TRUE METRIX GL UCOSE METER use to test BLOOD SUGAR TWICE DAILY 0 10/26/2022 Active Comment on above: use to test BLOOD MCCARTHY GAR TWICE DAILY Problems Active Problems Problem Classification Problem Date Documented Da te Episodic/Chronic Cancer of other GI organs; peritoneum (20 sources) Adenocarcinoma of duodenum; 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] Onset: 12-04-2019 03-09-2020 Chronic Cancer of pancreas (20 sources) Malignant tumor of head of pancreas; 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: [Malignant neoplasm of head of pancreas] Onset: 12-20-2019 03-09-2020 Chronic Deficiency and other anemia (1 source) Anemia in neoplastic disease; 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] Onset: 03-12-2021 Chronic Diabetes mellitus with complications (20 sources) Secondary diabetes mellitus; 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] Onset: 06-07-2023 06-07-2023 Chronic Diabetes mellitus without complication (16 sources) Type 2 diabetes mellitus without complications; 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: [Type 2 diabetes mellitus without complication] Onset: 03-04-2021 Chronic Diseases of white blood cells (2 sources) Leukocytosis; 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: [Elevated white blood cell count, unspecified] Onset: 10-25-2022 12-10-2020 Chronic E Codes: Fall (1 source) Fall; 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: [Unspecified fall, initial encounter] 12-15-2022 Episodic Essential hypertension (1 source) Benign essential hypertension; 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: [Essential (primary) hypertension] Onset: 10-27-2009 10-25-2022 Chronic Fluid and electrolyte disorders (1 source) Acute hyponatremia; 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: [Hypo-osmolality and hyponatremia] 12-10-2020 Episodic Gastroduodenal ulcer (except hemorrhage) (1 source) Ulcer of duodenum; 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: [Duodenal ulcer, unspecified as acute or chronic, without hemorrhage or perforation] Onset: 10-25-2022 10-25-2022 Chronic Hyperplasia of prostate (2 sources) Benign prostatic hyperplasia; 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: [Benign prostatic hyperplasia without lower urinary tract symptoms] Onset: 10-27-2009 10-25-2022 Chronic Nonspecific chest pain (1 source) Chest pain; 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: [Chest pain, unspecified] 12-21-2022 Episodic Nutritional deficiencies (20 sources) Deficiency of macronutrients; 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: [Unspecified severe protein-calorie malnutrition] Onset: 12-05-2019 03-23-2020 Chronic Other aftercare (4 sources) Encounter for therapeutic drug level monitoring; 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: [ENC THERAPEUTC DRUG LEVL MONITORING] Onset: 05-25-2021 Episodic Other aftercare (1 source) M[facility] (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; 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: [FCI CURRNT USE ANTICOAGULANTS] Onset: 06-23-2021 Episodic Other connective tissue disease (3 sources) Swelling of lower limb; 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: [Other specified soft tissue disorders] 10-03-2023 Episodic Other gastrointestinal disorders (1 source) Diarrhea; 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: [Diarrhea, unspecified] Episodic Other injuries and conditions due to external causes (1 source) Injury of head; 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: [Unspecified injury of head, initial encounter] 12-15-2022 Episodic Other lower respiratory disease (4 sources) Dyspnea on exertion; 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: [Other forms of dyspnea] 12-21-2022 Episodic Other lower respiratory disease (3 sources) Cough; 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: [Acute cough] 10-03-2023 Episodic Other nervous system disorders (1 source) Disorder of muscle; 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: [Myopathy, unspecified] Onset: 10-25-2022 10-25-2022 Chronic Other nervous system disorders (8 sources) Neuropathy; 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: [Polyneuropathy, unspecified] Onset: 10-25-2022 10-25-2022 Chronic Residual codes; unclassified (20 sources) Obstructive sleep apnea syndrome; 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: [Obstructive sleep apnea (adult) (pediatric)] Onset: 10-27-2009 03-09-2020 Chronic Residual codes; unclassified (1 source) Acquired total absence of pancreas; 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] Onset: 02-05-2021 Chronic Residual codes; unclassified (1 source) Dependence on wheelchair; 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: [Dependence on wheelchair] Onset: 10-25-2022 10-25-2022 Chronic Substance-related disorders (1 source) Tobacco dependence syndrome; 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: [Nicotine dependence, unspecified, uncomplicated] Onset: 10-25-2022 10-25-2022 Chronic Unclassified (2 sources) CONTACT W/AND (SUSP) EXPOS COVID-19; 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: [CONTACT W/AND (SUSP) EXPOS COVID-19] Onset: 04-01-2021 Unclassified (1 source) Laceration without foreign body of left eyelid and periocular area, initial encounter; 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: [Laceration without foreign body of left eyelid and periocular area, initial encounter] Onset: 12-15-2022 Unclassified (1 source) Acute cough; 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: [Acute cough] Onset: 10-03-2023 Viral infection (1 source) COVID-19; 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: [COVID-19] Onset: 04-01-2021 Past or Other Problems Problem Classification Problem Date Documented Da te Episodic/Chronic Abdominal pain (20 sources) Abdominal pain; 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: [Unspecified abdominal pain] Onset: 12-01-2020 12-11-2020 Episodic Bacterial infection; unspecified site (20 sources) Bacteremia; 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: [Bacteremia caused by Gram-negative bacteria] Onset: 03-15-2021 03-15-2021 Episodic Complications of surgical procedures or medical care (20 sources) Postprocedural intraabdominal abscess; 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: [Infection following a procedure, organ and space surgical site, initial encounter] Onset: 03-20-2020 03-20-2020 Episodic Deficiency and other anemia (20 sources) Anemia; 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: [Anemia, unspecified] Onset: 12-04-2019 03-09-2020 Episodic Diabetes mellitus without complication (1 source) Abnormal glucose tolerance test; 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: [Other abnormal glucose] Onset: 10-27-2009 10-25-2022 Episodic Genitourinary symptoms and ill-defined conditions (20 sources) Acute retention of urine ; 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: [Other retention of urine] Onset: 12-26-2020 12-26-2020 Episodic Noninfectious gastroenteritis (20 sources) Colitis; 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: [Noninfective gastroenteritis and colitis, unspecified] Onset: 12-03-2020 12-04-2020 Episodic Nutritional deficiencies (3 sources) Deficiency of macronutrients; 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: [Nutritional deficiency, unspecified] Onset: 12-05-2019 03-09-2020 Episodic Open wounds of head; neck; and trunk (20 sources) Wound of abdomen; 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: [Unspecified open wound of abdominal wall, unspecified quadrant without penetration into peritoneal cavity, initial encounter] Onset: 05-11-2020 05-11-2020 Episodic Other aftercare (4 sources) Encounter for adjustment and management of vascular access device; 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: [ENC ADJUSTMENT AND MANAGEMENT VAD] Onset: 03-11-2021 Episodic Other aftercare (20 sources) Long-term current use of anticoagulant; 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: [MCC (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] Onset: 04-07-2020 12-04-2020 Episodic Other aftercare (20 sources) Long-term current use of insulin; 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: [MCC (current) use of insulin] Onset: 05-08-2020 05-08-2020 Episodic Other disorders of stomach and duodenum (20 sources) Pyloric obstruction; 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: [Adult hypertrophic pyloric stenosis] Onset: 11-20-2019 03-09-2020 Episodic Other disorders of stomach and duodenum (1 source) Adult hypertrophic pyloric stenosis; 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: [ADULT HYPERTROPHIC PYLORIC STENOSIS] Onset: 03-12-2021 Episodic Other gastrointestinal disorders (1 source) Constipation; 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: [Constipation, unspecified] Onset: 10-25-2022 10-25-2022 Episodic Other nutritional; endocrine; and metabolic disorders (16 sources) Obese class II; 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: [Obesity, unspecified] Onset: 12-06-2019 Resolved: 05-08-2020 05-08-2020 Chronic Pancreatic disorders (not diabetes) (20 sources) Pancreatitis; 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: [Acute pancreatitis without necrosis or infection, unspecified] Onset: 02-05-2021 02-05-2021 Episodic Phlebitis; thrombophlebitis and thromboembolism (20 sources) Deep venous thrombosis of upper extremity; 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: [Acute embolism and thrombosis of deep veins of upper extremity, bilateral] Onset: 04-07-2020 12-04-2020 Episodic Residual codes; unclassified (1 source) Acquired absence of other specified parts of digestive tract; 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] Onset: 02-05-2021 Episodic Residual codes; unclassified (1 source) Edema; 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: [Edema, unspecified] Onset: 10-27-2009 10-25-2022 Episodic Screening and history of mental health and substance abuse codes (20 sources) Ex-smoker; 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: [Personal history of nicotine dependence] Onset: 12-04-2019 05-08-2020 Episodic Septicemia (except in labor) (17 sources) Sepsis, unspecified organism; 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: [Sepsis] Onset: 03-09-2020 Resolved: 03-13-2020 03-13-2020 Episodic Skin and subcutaneous tissue infections (1 source) Cutaneous abscess, unspecified; 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: [Phlegmon] Onset: 02-05-2021 Episodic Unclassified (1 source) CONTACT W/AND (SUSP) EXPOS COVID-19; 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: [CONTACT W/AND (SUSP) EXPOS COVID-19] Onset: 03-25-2021 Results Test Name Value Interpretation Reference Range Facility CBC W Auto Differential pane l (Bld)on 10-11-2023 Basophils (Bld) [#/Vol] 0.04 10*3/uL Normal <0.11 [facility] Comment on above: Order Comment: Speci men Type: BLOOD SPECIMENOrdering Facility: [facility] Address: [address] [place] [address] Performed By: #### 5 7021-8 ####[facility] LABCLIA [id number] [place] [address] Basophils/100 WBC (Bld) 0.4 % Normal [facility] Comment on above: Order Comment: Speci men Type: BLOOD SPECIMENOrdering Facility: [facility] Address: [address] [place] [address] Performed By: #### 5 7021-8 ####[facility] LABCLIA [id number] [place] [address] Differential cell count method Nom (Bld) Auto Normal [facility] Comment on above: Order Comment: Speci men Type: BLOOD SPECIMENOrdering Facility: [facility] Address: [address] [place] [address] Performed By: #### 5 7021-8 ####[facility] LABCLIA [id number] [place] [address] Eosinophils (Bld) [#/Vol] 10*3/uL Normal <0.46 [facility] Comment on above: Order Comment: Speci men Type: BLOOD SPECIMENOrdering Facility: [facility] Address: [address] [place] [address] Performed By: #### 5 7021-8 ####[facility] LABCLIA [id number] [place] [address] Eosinophils/100 WBC (Bld) 0.2 % Normal [facility] Comment on above: Order Comment: Speci men Type: BLOOD SPECIMENOrdering Facility: [facility] Address: [address] [place] [address] Performed By: #### 5 7021-8 ####[facility] LABIA [id number] [place] [address] Erythrocyte distribution width (RBC) [Ratio] 15.2 % High 11.5-15.0 [facility] Comment on above: Order Comment: Speci men Type: BLOOD SPECIMENOrdering Facility: [facility] Address: [address] [place], [place] [address] Performed By: #### 5 7021-8 ####[facility] LABCLIA [id number] [place] [address] Hematocrit (Bld) [Volume fraction] 29.5 % Low 39.0-51.0 [facility] Comment on above: Order Comment: Speci men Type: BLOOD SPECIMENOrdering Facility: [facility] Address: [address] [place] [address] Performed By: #### 5 7021-8 ####[facility] LABCLIA [id number] [place] [address] Hemoglobin (Bld) [Mass/Vol] 9.6 g/dL Low 13.0-17.0 [facility] Comment on above: Order Comment: Speci men Type: BLOOD SPECIMENOrdering Facility: [facility] Address: [address] [place] [address] Performed By: #### 5 7021-8 ####[facility] LABCLIA [id number] [place] [address] Immature granulocytes (Bld) [#/Vol] 0.12 10*3/uL High <0.10 [facility] Comment on above: Order Comment: Speci men Type: BLOOD SPECIMENOrdering Facility: [facility] Address: [address] [place] [address] Performed By: #### 5 7021-8 ####[facility] LABCLIA [id number] [place] [address] Immature granulocytes/100 WBC (Bld) 1.2 % Normal [facility] Comment on above: Order Comment: Speci men Type: BLOOD SPECIMENOrdering Facility: [facility] Address: [address] [place] [address] Performed By: #### 5 7021-8 ####[facility] LABCLIA [id number] [place] [address] Lymphocytes (Bld) [#/Vol] 1.53 10*3/uL Normal 1.00-4.00 [facility] Comment on above: Order Comment: Speci men Type: BLOOD SPECIMENOrdering Facility: [facility] Address: [address] [place] [address] Performed By: #### 5 7021-8 ####[facility] LABCLIA [id number] [place] [address] Lymphocytes/100 WBC (Bld) 15.3 % Normal [facility] Comment on above: Order Comment: Speci men Type: BLOOD SPECIMENOrdering Facility: [facility] Address: [address] [place] [address] Performed By: #### 5 7021-8 ####[facility] LABCLIA [id number] [place] [address] MCH (RBC) [Entitic mass] 30.2 pg Normal 26.0-34.0 [facility] Comment on above: Order Comment: Speci men Type: BLOOD SPECIMENOrdering Facility: [facility] Address: [address] [place] [address] Performed By: #### 5 7021-8 ####[facility] LABCLIA [id number] [place] [address] MCHC (RBC) [Mass/Vol] 32.5 g/dL Normal 30.5-36.0 [facility] Comment on above: Order Comment: Speci men Type: BLOOD SPECIMENOrdering Facility: [facility] Address: [address] [place] [address] Performed By: #### 5 7021-8 ####[facility] LABCLIA [id number] [place] [address] MCV (RBC) [Entitic vol] 92.8 fL Normal 80.0-100.0 [facility] Comment on above: Order Comment: Speci men Type: BLOOD SPECIMENOrdering Facility: [facility] Address: [address] [place] [address] Performed By: #### 5 7021-8 ####[facility] LABCLIA [id number] [place] [address] Monocytes (Bld) [#/Vol] 0.77 10*3/uL Normal <0.87 [facility] Comment on above: Order Comment: Speci men Type: BLOOD SPECIMENOrdering Facility: [facility] Address: [address] [place] [address] Performed By: #### 5 7021-8 ####[facility] LABCLIA [id number] [place] [address] Monocytes/100 WBC (Bld) 7.7 % Normal [facility] Comment on above: Order Comment: Speci men Type: BLOOD SPECIMENOrdering Facility: [facility] Address: [address] [place] [address] Performed By: #### 5 7021-8 ####[facility] LABCLIA [id number] [place] [address] Neutrophils (Bld) [#/Vol] 7.54 10*3/uL High 1.45-7.50 [facility] Comment on above: Order Comment: Speci men Type: BLOOD SPECIMENOrdering Facility: [facility] Address: [address] [place] [address] Performed By: #### 5 7021-8 ####[facility] LABCLIA [id number] [place] [address] Neutrophils/100 WBC (Bld) 75.2 % Normal [facility] Comment on above: Order Comment: Speci men Type: BLOOD SPECIMENOrdering Facility: [facility] Address: [address] [place] [address] Performed By: #### 5 7021-8 ####[facility] LABCLIA [id number] [place] [address] Nucleated RBC (Bld) [#/Vol] 10*3/uL Normal <0.01 [facility] Comment on above: Order Comment: Speci men Type: BLOOD SPECIMENOrdering Facility: [facility] Address: [address] [place] [address] Performed By: #### 5 7021-8 ####[facility] LABCLIA [id number] [place] [address] Nucleated RBC/100 WBC (Bld) [Ratio] 0.0 /[address] [facility] Comment on above: Order Comment: Speci men Type: BLOOD SPECIMENOrdering Facility: [facility] Address: [address] [place] [address] Performed By: #### 5 7021-8 ####[facility] LABCLIA [id number] [place] [address] Platelet mean volume (Bld) [Entitic vol] 10.0 fL Normal 9.0-12.7 [facility] Comment on above: Order Comment: Speci men Type: BLOOD SPECIMENOrdering Facility: [facility] Address: [address] [place] [address] Performed By: #### 5 7021-8 ####[facility] LABCLIA [id number] [place] [address] Platelets (Bld) [#/Vol] 196 10*3/uL Normal 150-400 [facility] Comment on above: Order Comment: Speci men Type: BLOOD SPECIMENOrdering Facility: [facility] Address: [address] [place] [address] Performed By: #### 5 7021-8 ####[facility] LABCLIA [id number] [place] [address] RBC (Bld) [#/Vol] 3.18 10*6/uL Low 4.20-6.00 [facility] Comment on above: Order Comment: Speci men Type: BLOOD SPECIMENOrdering Facility: [facility] Address: [address] [place] [address] Performed By: #### 5 7021-8 ####[facility] LABCLIA [id number] [place] [address] WBC (Bld) [#/Vol] 10.02 10*3/uL Normal 3.70-11.00 [facility] Comment on above: Order Comment: Speci men Type: BLOOD SPECIMENOrdering Facility: [facility] Address: [address] [place] [address] Performed By: #### 5 7021-8 ####[facility] LABCLIA [id number] [place] [address] Basophils (Bld) [#/Vol] 0.04 10*3/uL [facility] Basophils/100 WBC (Bld) 0.4 % [facility] Differential cell count method Nom (Bld) Auto [facility] Eosinophils (Bld) [#/Vol] [facility] Eosinophils/100 WBC (Bld) 0.2 % [facility] Erythrocyte distribution width (RBC) [Ratio] 15.2 % High 11.5 - 15.0 % [facility] Hematocrit (Bld) [Volume fraction] 29.5 % Low 39.0 - 51.0 % [facility] Hemoglobin (Bld) [Mass/Vol] 9.6 g/dL Low 13.0 - 17.0 g/dL [facility] Immature granulocytes (Bld) [#/Vol] 0.12 10*3/uL High [facility] Immature granulocytes/100 WBC (Bld) 1.2 % [facility] Interpretation and review of laboratory results Abnormal [facility] Lymphocytes (Bld) [#/Vol] 1.53 10*3/uL [facility] Lymphocytes/100 WBC (Bld) 15.3 % [facility] MCH (RBC) [Entitic mass] 30.2 pg 26.0 - 34.0 pg [facility] MCHC (RBC) [Mass/Vol] 32.5 g/dL 30.5 - 36.0 g/dL [facility] MCV (RBC) [Entitic vol] 92.8 fL 80.0 - 100.0 fL [facility] Monocytes (Bld) [#/Vol] 0.77 10*3/uL [facility] Monocytes/100 WBC (Bld) 7.7 % [facility] Neutrophils (Bld) [#/Vol] 7.54 10*3/uL High [facility] Neutrophils/100 WBC (Bld) 75.2 % [facility] Nucleated RBC (Bld) [#/Vol] NINF [facility] Nucleated RBC/100 WBC (Bld) [Ratio] 0.0 % /100 WBC [facility] Platelet mean volume (Bld) [Entitic vol] 10.0 fL 9.0 - 12.7 fL [facility] Platelets (Bld) [#/Vol] 196 10*3/uL [facility] RBC (Bld) [#/Vol] 3.18 10*6/uL Low 4.20 - 6.0 0 m/uL [facility] WBC (Bld) [#/Vol] 10.02 10*3/uL [facility] CNN[facility]SE[facility]-11-[address] [facility] CNOVSPon 10-11-[address] [facility] Comprehensive metabolic 2000 panelon 10-11-2023 Albumin [Mass/Vol] 2.9 g/dL Low 3.9 - 4.9 g/dL [facility] ALP [Catalytic activity/Vol] 111 U/L 38 - 113 U/L [facility] Comment on above: Results may be false ly decreased due to interference from hemolysis. Suggest reorder as clinically indicated. ALT [Catalytic activity/Vol] 18 U/L 10 - 54 U/L [facility] Comment on above: Results may be false ly increased due to interference from hemolysis. Suggest reorder as clinically indicated. Anion gap [Moles/Vol] 9 mmol/L 9 - 18 mmol/L [facility] AST [Catalytic activity/Vol] 52 U/L High 14 - 40 U/L [facility] Comment on above: Results may be false ly increased due to interference from hemolysis. Suggest reorder as clinically indicated. Bilirubin [Mass/Vol] 0.5 mg/dL 0.2 - 1.3 mg/dL [facility] Calcium [Mass/Vol] 9.7 mg/dL 8.5 - 10. 2 mg/dL [facility] Chloride [Moles/Vol] 96 mmol/L Low 97 - 105 mmol/L [facility] CO2 [Moles/Vol] 23 mmol/L 22 - 30 mmol/L [facility] Creatinine [Mass/Vol] 0.71 mg/dL Low 0.73 - 1.22 mg/dL [facility] GFR/1.73 sq M.predicted among non-blacks MDRD (S/P/Bld) [Vol rate/Area] 97 mL/min/{1.73_m2} - PINF [facility] Comment on above: Estimated Glomerular Filtration Rate (eGFR) is calculated using the 2020 CKD-EPI creatinine equation. This equation utilizes serum creatinine, sex, and age as parameters. The creatinine assay has traceable calibration to isotope dilution-mass spectrometry. Refer to KDIGO guidelines for clinical interpretation. In patients with unstable renal function, e.g. those with acute kidney injury, the eGFR may not accurately reflect actual GFR. Glucose [Mass/Vol] 158 mg/dL High 74 - 99 mg/dL [facility] Comment on above: The [place] [employer] Association (ADA) provides guidance for cutoff values for fasting glucose and random glucose. The ADA defines fasting as no caloric intake for at least 8 hours. Fasting plasma glucose results between 100 to 125 mg/dL indicate increased risk for diabetes (prediabetes). Fasting plasma glucose results greater than or equal to 126 mg/dL meet the criteria for diagnosis of diabetes. In the absence of unequivocal hyperglycemia, results should be confirmed by repeat testing. In a patient with classic symptoms of hyperglycemia or hyperglycemic crisis, random plasma glucose results greater than or equal to 200 mg/dL meet the criteria for diagnosis of diabetes. Reference: Standards of Medical Care in Diabetes 2016, [place] [employer]. Diabetes Care. 2016.39(Suppl 1). Interpretation and review of laboratory results Abnormal [facility] Potassium [Moles/Vol] [facility] Comment on above: Unable to assay due to interference from hemolysis. Suggest reorder as clinically indicated. Protein [Mass/Vol] 7.0 g/dL 6.3 - 8.0 g/dL [facility] Sodium [Moles/Vol] 128 mmol/L Low 136 - 144 mmol/L [facility] Urea nitrogen [Mass/Vol] 14 mg/dL 9 - 24 mg/dL [facility] Albumin [Mass/Vol] 2.9 g/dL Low 3.9-4.9 [facility] Comment on above: Order Comment: Speci men Type: BLOOD SPECIMENOrdering Facility: [facility] Address: [facility] [place] [address] Performed By: #### 2 4323-8 ####[facility] LABCLIA [id number] [place] [id number] [place] ALP [Catalytic activity/Vol] 111 U/L Normal 38-113 [facility] Comment on above: Order Comment: Speci men Type: BLOOD SPECIMENOrdering Facility: [facility] Address: [address] [place] [address] Result Comment: Resu lts may be falsely decreased due to interference from hemolysis. Suggest reorder as clinically indicated. Performed By: #### 2 4323-8 ####[facility] LABCLIA [id number] [place] [address] [place] ALT [Catalytic activity/Vol] 18 U/L Normal 10-54 [facility] Comment on above: Order Comment: Speci men Type: BLOOD SPECIMENOrdering Facility: [facility] Address: [address] [place] [address] Result Comment: Resu lts may be falsely increased due to interference from hemolysis. Suggest reorder as clinically indicated. Performed By: #### 2 4323-8 ####[facility] LABCLIA [id number] [place] [address] [place] Anion gap [Moles/Vol] 9 mmol/L Normal 9-18 [facility] Comment on above: Order Comment: Speci men Type: BLOOD SPECIMENOrdering Facility: [facility] Address: [address] [place] [address] Performed By: #### 2 4323-8 ####[facility] LABCLIA [id number] [place] [address] [place] AST [Catalytic activity/Vol] 52 U/L High 14-40 [facility] Comment on above: Order Comment: Speci men Type: BLOOD SPECIMENOrdering Facility: [facility] Address: [address] [place] [address] Result Comment: Resu lts may be falsely increased due to interference from hemolysis. Suggest reorder as clinically indicated. Performed By: #### 2 4323-8 ####[facility] LABCLIA [id number] [place] [address] [place] Bilirubin [Mass/Vol] 0.5 mg/dL Normal 0.2-1.3 [facility] Comment on above: Order Comment: Speci men Type: BLOOD SPECIMENOrdering Facility: [facility] Address: [address] [place] [address] Performed By: #### 2 4323-8 ####[facility] LABCLIA [id number] [place] [address] [place] Calcium [Mass/Vol] 9.7 mg/dL Normal 8.5-10.2 [facility] Comment on above: Order Comment: Speci men Type: BLOOD SPECIMENOrdering Facility: [facility] Address: [address] [place] [address] Performed By: #### 2 4323-8 ####[facility] LABCLIA [id number] [place] [address] [place] Chloride [Moles/Vol] 96 mmol/L Low 97-105 [facility] Comment on above: Order Comment: Speci men Type: BLOOD SPECIMENOrdering Facility: [facility] Address: [address] [place] [address] Performed By: #### 2 4323-8 ####[facility] LABCLIA [id number] [place] [address] [place] CO2 [Moles/Vol] 23 mmol/L Normal 22-30 [facility] Comment on above: Order Comment: Speci men Type: BLOOD SPECIMENOrdering Facility: [facility] Address: [address] [place] [address] Performed By: #### 2 4323-8 ####[facility] LABCLIA [id number] [place] [id number] [place] Creatinine [Mass/Vol] 0.71 mg/dL Low 0.73-1.22 [facility] Comment on above: Order Comment: Noemí hoff Type: BLOOD SPECIMENOrdering Facility: [facility] Address: [address] [place] [address] Performed By: #### 2 4323-8 ####[facility] LABCLIA [id number] [place] [address] [place] Creatinine and Glomerular filtration rate.predicted panel (S/P/Bld) 97 mL/min/1.73m??? Normal >=60 [facility] Comment on above: Order Comment: Noemí hoff Type: BLOOD SPECIMENOrdering Facility: [facility] Address: [address] [place] [address] Result Comment: Kathy mated Glomerular Filtration Rate (eGFR) is calculated using the 2020 CKD-EPI creatinine equation. This equation utilizes serum creatinine, sex, and age as parameters. The creatinine assay has traceable calibration to isotope dilution-mass spectrometry. Refer to KDIGO guidelines for clinical interpretation. In patients with unstable renal function, e.g. those with acute kidney injury, the eGFR may not accurately reflect actual GFR. Performed By: #### 2 4323-8 ####[facility] LABCLIA [id number] [place] [address] [place] Glucose [Mass/Vol] 158 mg/dL High 74-99 [facility] Comment on above: Order Comment: Noemí hoff Type: BLOOD SPECIMENOrdering Facility: [facility] Address: [address] [place] [address] Result Comment: The [place] [employer] (ADA) provides guidance for cutoff values for fasting glucose and random glucose. The ADA defines fasting as no caloric intake for at least 8 hours. Fasting plasma glucose results between 100 to 125 mg/dL indicate increased risk for diabetes (prediabetes).Fasting plasma glucose results greater than or equal to 126 mg/dL meet the criteria for diagnosis of diabetes. In the absence of unequivocal hyperglycemia, results should be confirmed by repeat testing. In a patient with classic symptoms of hyperglycemia or hyperglycemic crisis, random plasma glucose results greater than or equal to 200 mg/dL meet the criteria for diagnosis of diabetes.Reference: Standards of Medical Care in Diabetes 2016, [place] [employer]. Diabetes Care. 2016.39(Suppl 1). Performed By: #### 2 4323-8 ####[facility] LABCLIA [id number] [place] [address] [place] Potassium [Moles/Vol] Normal [facility] Comment on above: Order Comment: Speci men Type: BLOOD SPECIMENOrdering Facility: [facility] Address: [address] [place] [address] Result Comment: Unab le to assay due to interference from hemolysis. Suggest reorder as clinically indicated. Performed By: #### 2 4323-8 ####[facility] LABIA [id number] [place] [address] [place] Protein [Mass/Vol] 7.0 g/dL Normal 6.3-8.0 [facility] Comment on above: Order Comment: Speci men Type: BLOOD SPECIMENOrdering Facility: [facility] Address: [address] [place] [address] Performed By: #### 2 4323-8 ####[facility] LABIA [id number] [place] [address] [place] Sodium [Moles/Vol] 128 mmol/L Low 136-144 [facility] Comment on above: Order Comment: Speci men Type: BLOOD SPECIMENOrdering Facility: [facility] Address: [address] [place] [address] Performed By: #### 2 4323-8 ####[facility] LABCLIA [id number] [place] [address] [place] Urea nitrogen [Mass/Vol] 14 mg/dL Normal 9-24 [facility] Comment on above: Order Comment: Speci men Type: BLOOD SPECIMENOrdering Facility: [facility] Address: [address] [place] [address] Performed By: #### 2 4323-8 ####[facility] LABIA [id number] [address] [place] [address] [place] UA DIP, URINE (POC)on 2023 BILIRUBIN UA (POCT) Negative Negative [facility] CLARITY UA (POCT) Slightly Cloudy Cl [facility] COLOR UA (POCT) Yellow [facility] GLUCOSE UA (POCT) Negative Negative mg/dL [facility] Hemoglobin Ql (U) Negative Negative [facility] Interpretation and review of laboratory results Abnormal [facility] KETONE UA (POCT) Negative Negative mg/dL [facility] LEUKOCYTES UA (POCT) Trace Abnormal Negative [facility] NITRITE UA (POCT) Negative Negative [facility] PH UA (POCT) 6.5 4.5 - 8.0 [facility] Protein Ql (U) Negative Negative mg/dL [facility] SPECIFIC GRAVITY UA (POCT) 1.015 1.005 - 1.030 [facility] UROBILINOGEN UA (POCT) 0.2 Normal E.U./dL [facility] Location:[facility], [address] [place] [address] , [place], [place], [id number] [place] [address] POINT OF CARE [facility] CNPNon 10-05-[address] [facility] CNPNon 10-04-[address] [facility] CBC W Auto Differential pane l (Bld)on 10-03-2023 Basophils (Bld) [#/Vol] 0.04 10*3/uL Normal <0.11 [facility] Comment on above: Order Comment: Speci men Type: BLOOD SPECIMENOrdering Facility: [facility] Address: [address] [place] [address] Performed By: #### 5 7021-8 ####[facility] LABCLIA [id number] [place] [address] Basophils/100 WBC (Bld) 0.4 % Normal [facility] Comment on above: Order Comment: Speci men Type: BLOOD SPECIMENOrdering Facility: [facility] Address: [address] [place] [address] Performed By: #### 5 7021-8 ####[facility] LABCLIA [id number] [place] [address] Differential cell count method Nom (Bld) Auto Normal [facility] Comment on above: Order Comment: Speci men Type: BLOOD SPECIMENOrdering Facility: [facility] Address: [address] [place] [address] Performed By: #### 5 7021-8 ####[facility] LABCLIA [id number] [place] [address] Eosinophils (Bld) [#/Vol] 10*3/uL Normal <0.46 [facility] Comment on above: Order Comment: Speci men Type: BLOOD SPECIMENOrdering Facility: [facility] Address: [address] [place] [address] Performed By: #### 5 7021-8 ####[facility] LABCLIA [id number] [place] [address] Eosinophils/100 WBC (Bld) 0.1 % Normal [facility] Comment on above: Order Comment: Speci men Type: BLOOD SPECIMENOrdering Facility: [facility] Address: [address] [place] [address] Performed By: #### 5 7021-8 ####[facility] LABCLIA [id number] [place] [address] Erythrocyte distribution width (RBC) [Ratio] 14.2 % Normal 11.5-15.0 [facility] Comment on above: Order Comment: Speci men Type: BLOOD SPECIMENOrdering Facility: [facility] Address: [address] [place] [address] Performed By: #### 5 7021-8 ####[facility] LABCLIA [id number] [place] [address] Hematocrit (Bld) [Volume fraction] 29.5 % Low 39.0-51.0 [facility] Comment on above: Order Comment: Speci men Type: BLOOD SPECIMENOrdering Facility: [facility] Address: [address] [place] [address] Performed By: #### 5 7021-8 ####[facility] LABCLIA [id number] [place] [address] Hemoglobin (Bld) [Mass/Vol] 9.6 g/dL Low 13.0-17.0 [facility] Comment on above: Order Comment: Speci men Type: BLOOD SPECIMENOrdering Facility: [facility] Address: [address] [place] [address] Performed By: #### 5 7021-8 ####[facility] LABCLIA [id number] [place] [address] Immature granulocytes (Bld) [#/Vol] 0.18 10*3/uL High <0.10 [facility] Comment on above: Order Comment: Speci men Type: BLOOD SPECIMENOrdering Facility: [facility] Address: [address] [place] [address] Performed By: #### 5 7021-8 ####[facility] LABCLIA [id number] [place] [address] Immature granulocytes/100 WBC (Bld) 1.8 % Normal [facility] Comment on above: Order Comment: Speci men Type: BLOOD SPECIMENOrdering Facility: [facility] Address: [address] [place] [address] Performed By: #### 5 7021-8 ####[facility] LABCLIA [id number] [place] [address] Lymphocytes (Bld) [#/Vol] 1.28 10*3/uL Normal 1.00-4.00 [facility] Comment on above: Order Comment: Speci men Type: BLOOD SPECIMENOrdering Facility: [facility] Address: [address] [place] [address] Performed By: #### 5 7021-8 ####[facility] LABCLIA [id number] [place] [address] Lymphocytes/100 WBC (Bld) 13.0 % Normal [facility] Comment on above: Order Comment: Speci men Type: BLOOD SPECIMENOrdering Facility: [facility] Address: [address] [place] [address] Performed By: #### 5 7021-8 ####[facility] LABCLIA [id number] [place] [address] MCH (RBC) [Entitic mass] 31.4 pg Normal 26.0-34.0 [facility] Comment on above: Order Comment: Speci men Type: BLOOD SPECIMENOrdering Facility: [facility] Address: [address] [place] [address] Performed By: #### 5 7021-8 ####[facility] LABCLIA [id number] [place] [address] MCHC (RBC) [Mass/Vol] 32.5 g/dL Normal 30.5-36.0 [facility] Comment on above: Order Comment: Speci men Type: BLOOD SPECIMENOrdering Facility: [facility] Address: [address] [place] [address] Performed By: #### 5 7021-8 ####[facility] LABCLIA [id number] [place] [address] MCV (RBC) [Entitic vol] 96.4 fL Normal 80.0-100.0 [facility] Comment on above: Order Comment: Speci men Type: BLOOD SPECIMENOrdering Facility: [facility] Address: [address] [place] [address] Performed By: #### 5 7021-8 ####[facility] LABCLIA [id number] [place] [address] Monocytes (Bld) [#/Vol] 1.25 10*3/uL High <0.87 [facility] Comment on above: Order Comment: Speci men Type: BLOOD SPECIMENOrdering Facility: [facility] Address: [address] [place] [address] Performed By: #### 5 7021-8 ####[facility] LABCLIA [id number] [place] [address] Monocytes/100 WBC (Bld) 12.7 % Normal [facility] Comment on above: Order Comment: Speci men Type: BLOOD SPECIMENOrdering Facility: [facility] Address: [address] [place] [address] Performed By: #### 5 7021-8 ####[facility] LABCLIA [id number] [place] [address] Neutrophils (Bld) [#/Vol] 7.08 10*3/uL Normal 1.45-7.50 [facility] Comment on above: Order Comment: Speci men Type: BLOOD SPECIMENOrdering Facility: [facility] Address: [address] [place] [address] Performed By: #### 5 7021-8 ####[facility] LABCLIA [id number] [place] [address] Neutrophils/100 WBC (Bld) 72.0 % Normal [facility] Comment on above: Order Comment: Speci men Type: BLOOD SPECIMENOrdering Facility: [facility] Address: [address] [place] [address] Performed By: #### 5 7021-8 ####[facility] LABCLIA [id number] [place] [address] Nucleated RBC (Bld) [#/Vol] 10*3/uL Normal <0.01 [facility] Comment on above: Order Comment: Speci men Type: BLOOD SPECIMENOrdering Facility: [facility] Address: [address] [place] [address] Performed By: #### 5 7021-8 ####[facility] LABCLIA [id number] [place] [address] Nucleated RBC/100 WBC (Bld) [Ratio] 0.0 /[address] [facility] Comment on above: Order Comment: Speci men Type: BLOOD SPECIMENOrdering Facility: [facility] Address: [address] [place] [address] Performed By: #### 5 7021-8 ####[facility] LABCLIA [id number] [place] [address] Platelet mean volume (Bld) [Entitic vol] 9.0 fL Normal 9.0-12.7 [facility] Comment on above: Order Comment: Speci men Type: BLOOD SPECIMENOrdering Facility: [facility] Address: [address] [place] [address] Performed By: #### 5 7021-8 ####[facility] LABCLIA [id number] [place] [address] Platelets (Bld) [#/Vol] 407 10*3/uL High 150-400 [facility] Comment on above: Order Comment: Speci men Type: BLOOD SPECIMENOrdering Facility: [facility] Address: [address] [place] [address] Performed By: #### 5 7021-8 ####[facility] LABCLIA [id number] [place] [address] RBC (Bld) [#/Vol] 3.06 10*6/uL Low 4.20-6.00 [facility] Comment on above: Order Comment: Speci men Type: BLOOD SPECIMENOrdering Facility: [facility] Address: [address] [place] [address] Performed By: #### 5 7021-8 ####[facility] LABCLIA [id number] [place] [address] WBC (Bld) [#/Vol] 9.84 10*3/uL Normal 3.70-11.00 [facility] Comment on above: Order Comment: Speci men Type: BLOOD SPECIMENOrdering Facility: [facility] Address: [address] [place] [address] Performed By: #### 5 7021-8 ####[facility] LABCLIA [id number] [place] [address] Basophils (Bld) [#/Vol] 0.04 10*3/uL [facility] Basophils/100 WBC (Bld) 0.4 % [facility] Differential cell count method Nom (Bld) Auto [facility] Eosinophils (Bld) [#/Vol] [facility] Eosinophils/100 WBC (Bld) 0.1 % [facility] Erythrocyte distribution width (RBC) [Ratio] 14.2 % 11.5 - 15.0 % [facility] Hematocrit (Bld) [Volume fraction] 29.5 % Low 39.0 - 51.0 % [facility] Hemoglobin (Bld) [Mass/Vol] 9.6 g/dL Low 13.0 - 17.0 g/dL [facility] Immature granulocytes (Bld) [#/Vol] 0.18 10*3/uL High [facility] Immature granulocytes/100 WBC (Bld) 1.8 % [facility] Interpretation and review of laboratory results Abnormal [facility] Lymphocytes (Bld) [#/Vol] 1.28 10*3/uL [facility] Lymphocytes/100 WBC (Bld) 13.0 % [facility] MCH (RBC) [Entitic mass] 31.4 pg 26.0 - 34.0 pg [facility] MCHC (RBC) [Mass/Vol] 32.5 g/dL 30.5 - 36.0 g/dL [facility] MCV (RBC) [Entitic vol] 96.4 fL 80.0 - 100.0 fL [facility] Monocytes (Bld) [#/Vol] 1.25 10*3/uL High [facility] Monocytes/100 WBC (Bld) 12.7 % [facility] Neutrophils (Bld) [#/Vol] 7.08 10*3/uL [facility] Neutrophils/100 WBC (Bld) 72.0 % [facility] Nucleated RBC (Bld) [#/Vol] [facility] Nucleated RBC/100 WBC (Bld) [Ratio] 0.0 % /100 WBC [facility] Platelet mean volume (Bld) [Entitic vol] 9.0 fL 9.0 - 12.7 fL [facility] Platelets (Bld) [#/Vol] 407 10*3/uL High [facility] RBC (Bld) [#/Vol] 3.06 10*6/uL Low 4.20 - 6.0 0 m/uL [facility] WBC (Bld) [#/Vol] 9.84 10*3/uL [facility] CNOVSPon 10-03-[address] [facility] CNPNon 10-03-[address] [facility] Cancer Ag19-9 SerPl-aCncon 0 10-03-2023 Cancer Ag 19-9 Qn 234.0 [arb'U]/mL High <36.0 C [facility] Comment on above: Order Comment: Speci men Type: BLOOD SPECIMENOrdering Facility: [facility] Address: [address] [place] [address] Result Comment: [facility] er antigen 19-9 test is used as an aid in monitoring response to treatment or recurrence in patients with established pancreatic, hepatobiliary, or gastrointestinal malignancies. Clinical correlation is required.The CA 19-9 Antigen test was performed using the [employer] DXI paramagnetic particle chemiluminescent immunoassay method. Results obtained with different assay methods or kits cannot be used interchangeably. Performed By: #### 2 4108-3 ####[facility] LABCLIA [id number] [place] [address] [place] Comprehensive metabolic 2000 panelon 10-03-2023 Albumin [Mass/Vol] 3.0 g/dL Low 3.9-4.9 [facility] Comment on above: Order Comment: Speci men Type: BLOOD SPECIMENOrdering Facility: [facility] Address: [address] [place] [address] Performed By: #### 2 4323-8 ####[facility] LABCLIA [id number] [place] [address] ALP [Catalytic activity/Vol] 110 U/L Normal 38-113 [facility] Comment on above: Order Comment: Speci men Type: BLOOD SPECIMENOrdering Facility: [facility] Address: [address] [place] [address] Performed By: #### 2 4323-8 ####[facility] LABCLIA [id number] [place] [address] ALT [Catalytic activity/Vol] 10 U/L Normal 10-54 [facility] Comment on above: Order Comment: Speci men Type: BLOOD SPECIMENOrdering Facility: [facility] Address: [address] [place] [address] Performed By: #### 2 4323-8 ####[facility] LABCLIA [id number] [place] [address] Anion gap [Moles/Vol] 8 mmol/L Low 9-18 [facility] Comment on above: Order Comment: Speci men Type: BLOOD SPECIMENOrdering Facility: [facility] Address: [address] [place] [address] Performed By: #### 2 4323-8 ####[facility] LABCLIA [id number] [place] [address] AST [Catalytic activity/Vol] 11 U/L Low 14-40 [facility] Comment on above: Order Comment: Speci men Type: BLOOD SPECIMENOrdering Facility: [facility] Address: [address] [place] [address] Performed By: #### 2 4323-8 ####[facility] LABCLIA [id number] [place] [address] Bilirubin [Mass/Vol] 0.6 mg/dL Normal 0.2-1.3 [facility] Comment on above: Order Comment: Speci men Type: BLOOD SPECIMENOrdering Facility: [facility] Address: [address] [place] [address] Performed By: #### 2 4323-8 ####[facility] LABCLIA [id number] [place] [address] Calcium [Mass/Vol] 10.4 mg/dL High 8.5-10.2 [facility] Comment on above: Order Comment: Speci men Type: BLOOD SPECIMENOrdering Facility: [facility] Address: [address] [place] [address] Performed By: #### 2 4323-8 ####[facility] LABCLIA [id number] [place] [address] Chloride [Moles/Vol] 100 mmol/L Normal 97-105 [facility] Comment on above: Order Comment: Speci men Type: BLOOD SPECIMENOrdering Facility: [facility] Address: [address] [place] [address] Performed By: #### 2 4323-8 ####[facility] LABCLIA [id number] [place] [address] CO2 [Moles/Vol] 27 mmol/L Normal 22-30 [facility] Comment on above: Order Comment: Speci men Type: BLOOD SPECIMENOrdering Facility: [facility] Address: [address] [place] [address] Performed By: #### 2 4323-8 ####[facility] LABCLIA [id number] [place] [address] Creatinine [Mass/Vol] 0.83 mg/dL Normal 0.73-1.22 [facility] Comment on above: Order Comment: Speci men Type: BLOOD SPECIMENOrdering Facility: [facility] Address: [address] [place] [address] Performed By: #### 2 4323-8 ####[facility] LABCLIA [id number] [place] [address] Creatinine and Glomerular filtration rate.predicted panel (S/P/Bld) 93 mL/min/1.73m??? Normal >=60 [facility] Comment on above: Order Comment: Speci men Type: BLOOD SPECIMENOrdering Facility: [facility] Address: [address] [place] [address] Result Comment: Kathy mated Glomerular Filtration Rate (eGFR) is calculated using the 2020 CKD-EPI creatinine equation. This equation utilizes serum creatinine, sex, and age as parameters. The creatinine assay has traceable calibration to isotope dilution-mass spectrometry. Refer to KDIGO guidelines for clinical interpretation. In patients with unstable renal function, e.g. those with acute kidney injury, the eGFR may not accurately reflect actual GFR. Performed By: #### 2 4323-8 ####[facility] LABCLIA [id number] [place] [address] Glucose [Mass/Vol] 167 mg/dL High 74-99 [facility] Comment on above: Order Comment: Speci men Type: BLOOD SPECIMENOrdering Facility: [facility] Address: [address] [place] [address] Result Comment: The [place] Diabetes Association (ADA) provides guidance for cutoff values for fasting glucose and random glucose. The ADA defines fasting as no caloric intake for at least 8 hours. Fasting plasma glucose results between 100 to 125 mg/dL indicate increased risk for diabetes (prediabetes).Fasting plasma glucose results greater than or equal to 126 mg/dL meet the criteria for diagnosis of diabetes. In the absence of unequivocal hyperglycemia, results should be confirmed by repeat testing. In a patient with classic symptoms of hyperglycemia or hyperglycemic crisis, random plasma glucose results greater than or equal to 200 mg/dL meet the criteria for diagnosis of diabetes.Reference: Standards of Medical Care in Diabetes 2016, [place] Diabetes Association. Diabetes Care. 2016.39(Suppl 1). Performed By: #### 2 4323-8 ####[facility] LABCLIA [id number] [place] [address] Potassium [Moles/Vol] 4.3 mmol/L Normal 3.7-5.1 [facility] Comment on above: Order Comment: Rajanii men Type: BLOOD SPECIMENOrdering Facility: [facility] Address: [address] [place] [address] Performed By: #### 2 4323-8 ####[facility] LABCLIA [id number] [place] [address] Protein [Mass/Vol] 6.9 g/dL Normal 6.3-8.0 [facility] Comment on above: Order Comment: Rajanii men Type: BLOOD SPECIMENOrdering Facility: [facility] Address: [address] [place], [place] [address] Performed By: #### 2 4323-8 ####[facility] LABCLIA [id number] [place] [address] Sodium [Moles/Vol] 135 mmol/L Low 136-144 [facility] Comment on above: Order Comment: Speci men Type: BLOOD SPECIMENOrdering Facility: [facility] Address: [address] [place] [address] Performed By: #### 2 4323-8 ####[facility] LABCLIA [id number] [place] [address] Urea nitrogen [Mass/Vol] 13 mg/dL Normal 9-24 [facility] Comment on above: Order Comment: Speci men Type: BLOOD SPECIMENOrdering Facility: [facility] Address: [address] [place] [address] Performed By: #### 2 4323-8 ####[facility] LABCLIA [id number] [place] [address] Comprehensive metabolic 2000 panelOrdered By: Elizabeth Yu on 10-03-2023 Albumin [Mass/Vol] 3.0 g/dL Low 3.9 - 4.9 g/dL [facility] ALP [Catalytic activity/Vol] 110 U/L 38 - 113 U/L [facility] ALT [Catalytic activity/Vol] 10 U/L 10 - 54 U/L [facility] Anion gap [Moles/Vol] 8 mmol/L Low 9 - 18 mmol/L [facility] AST [Catalytic activity/Vol] 11 U/L Low 14 - 40 U/L [facility] Bilirubin [Mass/Vol] 0.6 mg/dL 0.2 - 1.3 mg/dL [facility] Calcium [Mass/Vol] 10.4 mg/dL High 8.5 - 10. 2 mg/dL [facility] Chloride [Moles/Vol] 100 mmol/L 97 - 105 mmol/L [facility] CO2 [Moles/Vol] 27 mmol/L 22 - 30 mmol/L [facility] Creatinine [Mass/Vol] 0.83 mg/dL 0.73 - 1.22 mg/dL [facility] GFR/1.73 sq M.predicted among non-blacks MDRD (S/P/Bld) [Vol rate/Area] 93 mL/min/{1.73_m2} - PINF [facility] Comment on above: Estimated Glomerular Filtration Rate (eGFR) is calculated using the 2020 CKD-EPI creatinine equation. This equation utilizes serum creatinine, sex, and age as parameters. The creatinine assay has traceable calibration to isotope dilution-mass spectrometry. Refer to KDIGO guidelines for clinical interpretation. In patients with unstable renal function, e.g. those with acute kidney injury, the eGFR may not accurately reflect actual GFR. Glucose [Mass/Vol] 167 mg/dL High 74 - 99 mg/dL [facility] Comment on above: The [place] Diabete s Association (ADA) provides guidance for cutoff values for fasting glucose and random glucose. The ADA defines fasting as no caloric intake for at least 8 hours. Fasting plasma glucose results between 100 to 125 mg/dL indicate increased risk for diabetes (prediabetes). Fasting plasma glucose results greater than or equal to 126 mg/dL meet the criteria for diagnosis of diabetes. In the absence of unequivocal hyperglycemia, results should be confirmed by repeat testing. In a patient with classic symptoms of hyperglycemia or hyperglycemic crisis, random plasma glucose results greater than or equal to 200 mg/dL meet the criteria for diagnosis of diabetes. Reference: Standards of Medical Care in Diabetes 2016, [place] [employer]. Diabetes Care. 2016.39(Suppl 1). Interpretation and review of laboratory results Abnormal [facility] Potassium [Moles/Vol] 4.3 mmol/L 3.7 - 5.1 mmol/L [facility] Protein [Mass/Vol] 6.9 g/dL 6.3 - 8.0 g/dL [facility] Sodium [Moles/Vol] 135 mmol/L Low 136 - 144 mmol/L [facility] Urea nitrogen [Mass/Vol] 13 mg/dL 9 - 24 mg/dL [facility] XR CHEST 2V FRONTAL/LATon XR CHEST 2V FRONTAL/LAT Normal [facility] XR Chest PA and Lateralon IMPRESSION: No acute radiographic abnormality. Transcribe Date/Time: Oct 03 2023 1:45P Dictated by: JUAN CARLOS LINCOLN MD This examination was interpreted and the report reviewed and electronically signed by: JUAN CARLOS LINCOLN MD on Oct 03 2023 1:51PM EST Thank you for allowing us to participate in the care of your patient. Should there be any questions regarding this interpretation, please call [phone]. If you are unable to reach us at the number above, please feel free to contact [facility] [phone]. DIVISION OF RADIOLOGY * * *Final Report* * * DATE OF EXAM: Oct 03 2023 1:00PM [id number] - XR CHEST 2V FRONTAL/LAT / PROCEDURE REASON: Acute cough * * * * Physician Interpretation * * * * RESULT: EXAMINATION: CHEST RADIOGRAPH (2 VIEW FRONTAL & LATERAL) CLINICAL HISTORY: Acute cough MQ: XC2_6 EXAM DATE/TIME: 10/03/2023 1:00 PM COMPARISON: CT chest performed 08/18/2023 RESULT: Lines, tubes, and devices: There is a MediPort in the right chest wall. The catheter terminates in the distal SVC. Lungs and pleura: No lobar consolidation is noted. A calcified granuloma is again noted in the right lower lobe. No pleural effusion is seen. No pneumothorax is identified. Cardiomediastinal silhouette: Normal cardiomediastinal silhouette. Bones and soft tissues: Unremarkable. DIVISION OF RADIOLOGY Provider, [facility] - 10/03/2023 * * *Final Report* * * DATE OF EXAM: Oct 03 2023 1:00PM [id number] - XR CHEST 2V FRONTAL/LAT / PROCEDURE REASON: Acute cough * * * * Physician Interpretation * * * * RESULT: EXAMINATION: CHEST RADIOGRAPH (2 VIEW FRONTAL & LATERAL) CLINICAL HISTORY: Acute cough MQ: XC2_6 EXAM DATE/TIME: 10/03/2023 1:00 PM COMPARISON: CT chest performed 08/18/2023 RESULT: Lines, tubes, and devices: There is a MediPort in the right chest wall. The catheter terminates in the distal SVC. Lungs and pleura: No lobar consolidation is noted. A calcified granuloma is again noted in the right lower lobe. No pleural effusion is seen. No pneumothorax is identified. Cardiomediastinal silhouette: Normal cardiomediastinal silhouette. Bones and soft tissues: Unremarkable. IMPRESSION IMPRESSION: No acute radiographic abnormality. Transcribe Date/Time: Oct 03 2023 1:45P Dictated by: JUAN CARLOS LINCOLN MD This examination was interpreted and the report reviewed and electronically signed by: JUAN CARLOS LINCOLN MD on Oct 03 2023 1:51PM EST Thank you for allowing us to participate in the care of your patient. Should there be any questions regarding this interpretation, please call [phone]. If you are unable to reach us at the number above, please feel free to contact [facility] eRadiology at [phone]. [facility] Radiology Study observation (narrative) [facility] XR Chest PA and LateralOrder ed By: Ccf Provider on 10-03-2023 [facility] CNPNon 09-25-[address] [facility] CNPNon 09-18-[address] [facility] CBC W Auto Differential pane l (Bld)on 09-13-2023 Basophils (Bld) [#/Vol] 10*3/uL Normal <0.11 [facility] Comment on above: Order Comment: Speci men Type: BLOOD SPECIMENOrdering Facility: [facility] Address: [address] [place] [address] Performed By: #### 5 7021-8 ####[facility] LABCLIA [id number] [place] [address] Basophils/100 WBC (Bld) 0.5 % Normal [facility] Comment on above: Order Comment: Speci men Type: BLOOD SPECIMENOrdering Facility: [facility] Address: [address] [place] [address] Performed By: #### 5 7021-8 ####[facility] LABCLIA [id number] [place] [address] Differential cell count method Nom (Bld) Auto Normal [facility] Comment on above: Order Comment: Speci men Type: BLOOD SPECIMENOrdering Facility: [facility] Address: [address] [place] [address] Performed By: #### 5 7021-8 ####[facility] LABCLIA [id number] [place] [address] Eosinophils (Bld) [#/Vol] 0.03 10*3/uL Normal <0.46 [facility] Comment on above: Order Comment: Speci men Type: BLOOD SPECIMENOrdering Facility: [facility] Address: [address] [place] [address] Performed By: #### 5 7021-8 ####[facility] LABCLIA [id number] [place] [address] Eosinophils/100 WBC (Bld) 0.8 % Normal [facility] Comment on above: Order Comment: Speci men Type: BLOOD SPECIMENOrdering Facility: [facility] Address: [address] [place] [address] Performed By: #### 5 7021-8 ####[facility] LABCLIA [id number] [place] [address] Erythrocyte distribution width (RBC) [Ratio] 14.6 % Normal 11.5-15.0 [facility] Comment on above: Order Comment: Speci men Type: BLOOD SPECIMENOrdering Facility: [facility] Address: [address] [place] [address] Performed By: #### 5 7021-8 ####[facility] LABCLIA [id number] [place] [address] Hematocrit (Bld) [Volume fraction] 35.3 % Low 39.0-51.0 [facility] Comment on above: Order Comment: Speci men Type: BLOOD SPECIMENOrdering Facility: [facility] Address: [address] [place] [address] Performed By: #### 5 7021-8 ####[facility] LABCLIA [id number] [place] [address] Hemoglobin (Bld) [Mass/Vol] 11.4 g/dL Low 13.0-17.0 [facility] Comment on above: Order Comment: Speci men Type: BLOOD SPECIMENOrdering Facility: [facility] Address: [address] [place] [address] Performed By: #### 5 7021-8 ####[facility] LABCLIA [id number] [place] [address] Immature granulocytes (Bld) [#/Vol] 10*3/uL Normal <0.10 [facility] Comment on above: Order Comment: Speci men Type: BLOOD SPECIMENOrdering Facility: [facility] Address: [address] [place] [address] Performed By: #### 5 7021-8 ####[facility] LABCLIA [id number] [place] [address] Immature granulocytes/100 WBC (Bld) 0.3 % Normal [facility] Comment on above: Order Comment: Speci men Type: BLOOD SPECIMENOrdering Facility: [facility] Address: [address] [place] [address] Performed By: #### 5 7021-8 ####[facility] LABCLIA [id number] [place] [address] Lymphocytes (Bld) [#/Vol] 1.33 10*3/uL Normal 1.00-4.00 [facility] Comment on above: Order Comment: Speci men Type: BLOOD SPECIMENOrdering Facility: [facility] Address: [address] [place] [address] Performed By: #### 5 7021-8 ####[facility] LABCLIA [id number] [place] [address] Lymphocytes/100 WBC (Bld) 34.2 % Normal [facility] Comment on above: Order Comment: Speci men Type: BLOOD SPECIMENOrdering Facility: [facility] Address: [address] [place] [address] Performed By: #### 5 7021-8 ####[facility] LABCLIA [id number] [place] [address] MCH (RBC) [Entitic mass] 33.2 pg Normal 26.0-34.0 [facility] Comment on above: Order Comment: Speci men Type: BLOOD SPECIMENOrdering Facility: [facility] Address: [address] [place] [address] Performed By: #### 5 7021-8 ####[facility] LABCLIA [id number] [place] [address] MCHC (RBC) [Mass/Vol] 32.3 g/dL Normal 30.5-36.0 [facility] Comment on above: Order Comment: Speci men Type: BLOOD SPECIMENOrdering Facility: [facility] Address: [address] [place] [address] Performed By: #### 5 7021-8 ####[facility] LABCLIA [id number] [place] [address] MCV (RBC) [Entitic vol] 102.9 fL High 80.0-100.0 [facility] Comment on above: Order Comment: Speci men Type: BLOOD SPECIMENOrdering Facility: [facility] Address: [address] [place] [address] Performed By: #### 5 7021-8 ####[facility] LABCLIA [id number] [place] [address] Monocytes (Bld) [#/Vol] 0.59 10*3/uL Normal <0.87 [facility] Comment on above: Order Comment: Speci men Type: BLOOD SPECIMENOrdering Facility: [facility] Address: [address] [place] [address] Performed By: #### 5 7021-8 ####[facility] LABCLIA [id number] [place] [address] Monocytes/100 WBC (Bld) 15.2 % Normal [facility] Comment on above: Order Comment: Speci men Type: BLOOD SPECIMENOrdering Facility: [facility] Address: [address] [place] [address] Performed By: #### 5 7021-8 ####[facility] LABCLIA [id number] [place] [address] Neutrophils (Bld) [#/Vol] 1.91 10*3/uL Normal 1.45-7.50 [facility] Comment on above: Order Comment: Speci men Type: BLOOD SPECIMENOrdering Facility: [facility] Address: [address] [place] [address] Performed By: #### 5 7021-8 ####[facility] LABCLIA [id number] [place] [address] Neutrophils/100 WBC (Bld) 49.0 % Normal [facility] Comment on above: Order Comment: Speci men Type: BLOOD SPECIMENOrdering Facility: [facility] Address: [address] [place] [address] Performed By: #### 5 7021-8 ####[facility] LABCLIA [id number] [place] [address] Nucleated RBC (Bld) [#/Vol] 10*3/uL Normal <0.01 [facility] Comment on above: Order Comment: Speci men Type: BLOOD SPECIMENOrdering Facility: [facility] Address: [address] [place] [address] Performed By: #### 5 7021-8 ####[facility] LABCLIA [id number] [place] [address] Nucleated RBC/100 WBC (Bld) [Ratio] 0.0 /[address] [facility] Comment on above: Order Comment: Speci men Type: BLOOD SPECIMENOrdering Facility: [facility] Address: [address] [place] [address] Performed By: #### 5 7021-8 ####[facility] LABCLIA [id number] [place] [address] Platelet mean volume (Bld) [Entitic vol] 10.0 fL Normal 9.0-12.7 [facility] Comment on above: Order Comment: Speci men Type: BLOOD SPECIMENOrdering Facility: [facility] Address: [address] [place] [address] Performed By: #### 5 7021-8 ####[facility] LABCLIA [id number] [place] [address] Platelets (Bld) [#/Vol] 255 10*3/uL Normal 150-400 [facility] Comment on above: Order Comment: Speci men Type: BLOOD SPECIMENOrdering Facility: [facility] Address: [address] [place] [address] Performed By: #### 5 7021-8 ####[facility] LABCLIA [id number] [place] [address] RBC (Bld) [#/Vol] 3.43 10*6/uL Low 4.20-6.00 [facility] Comment on above: Order Comment: Speci men Type: BLOOD SPECIMENOrdering Facility: [facility] Address: [address] [place] [address] Performed By: #### 5 7021-8 ####[facility] LABCLIA [id number] [place] [address] WBC (Bld) [#/Vol] 3.89 10*3/uL Normal 3.70-11.00 [facility] Comment on above: Order Comment: Speci men Type: BLOOD SPECIMENOrdering Facility: [facility] Address: [address] [place] [address] Performed By: #### 5 7021-8 ####[facility] LABCLIA [id number] [place] [address] Basophils (Bld) [#/Vol] [facility] Basophils/100 WBC (Bld) 0.5 % [facility] Differential cell count method Nom (Bld) Auto [facility] Eosinophils (Bld) [#/Vol] 0.03 10*3/uL [facility] Eosinophils/100 WBC (Bld) 0.8 % [facility] Erythrocyte distribution width (RBC) [Ratio] 14.6 % 11.5 - 15.0 % [facility] Hematocrit (Bld) [Volume fraction] 35.3 % Low 39.0 - 51.0 % [facility] Hemoglobin (Bld) [Mass/Vol] 11.4 g/dL Low 13.0 - 17.0 g/dL [facility] Immature granulocytes (Bld) [#/Vol] NINF [facility] Immature granulocytes/100 WBC (Bld) 0.3 % [facility] Interpretation and review of laboratory results Abnormal [facility] Lymphocytes (Bld) [#/Vol] 1.33 10*3/uL [facility] Lymphocytes/100 WBC (Bld) 34.2 % [facility] MCH (RBC) [Entitic mass] 33.2 pg 26.0 - 34.0 pg [facility] MCHC (RBC) [Mass/Vol] 32.3 g/dL 30.5 - 36.0 g/dL [facility] MCV (RBC) [Entitic vol] 102.9 fL High 80.0 - 100.0 fL [facility] Monocytes (Bld) [#/Vol] 0.59 10*3/uL NINF [facility] Monocytes/100 WBC (Bld) 15.2 % [facility] Neutrophils (Bld) [#/Vol] 1.91 10*3/uL [facility] Neutrophils/100 WBC (Bld) 49.0 % [facility] Nucleated RBC (Bld) [#/Vol] NINF [facility] Nucleated RBC/100 WBC (Bld) [Ratio] 0.0 % /100 WBC [facility] Platelet mean volume (Bld) [Entitic vol] 10.0 fL 9.0 - 12.7 fL [facility] Platelets (Bld) [#/Vol] 255 10*3/uL [facility] RBC (Bld) [#/Vol] 3.43 10*6/uL Low 4.20 - 6.0 0 m/uL [facility] WBC (Bld) [#/Vol] 3.89 10*3/uL Bunny [facility] CNOVSPon 09-13-[address] [facility] Cancer Ag19-9 SerPl-aCncon 0 09-13-2023 Cancer Ag 19-9 Qn 967.0 [arb'U]/mL High <36.0 C [facility] Comment on above: Order Comment: Speci men Type: BLOOD SPECIMENOrdering Facility: [facility] Address: [address] [place] [address] Result Comment: [facility] er antigen 19-9 test is used as an aid in monitoring response to treatment or recurrence in patients with established pancreatic, hepatobiliary, or gastrointestinal malignancies. Clinical correlation is required.The CA 19-9 Antigen test was performed using the [employer] Un[employer]el DXI paramagnetic particle chemiluminescent immunoassay method. Results obtained with different assay methods or kits cannot be used interchangeably. Performed By: #### 2 4108-3 ####[facility] LABCLIA [id number] [place] [address] [facility] Comprehensive metabolic 2000 panelon 09-13-2023 Albumin [Mass/Vol] 3.8 g/dL Low 3.9-4.9 [facility] Comment on above: Order Comment: Speci men Type: BLOOD SPECIMENOrdering Facility: [facility] Address: [address] [place] [address] Performed By: #### 2 4323-8 ####[facility] LABCLIA [id number] [place] [address] ALP [Catalytic activity/Vol] 136 U/L High 38-113 [facility] Comment on above: Order Comment: Speci men Type: BLOOD SPECIMENOrdering Facility: [facility] Address: [address] [place] [address] Performed By: #### 2 4323-8 ####[facility] LABCLIA [id number] [place] [address] ALT [Catalytic activity/Vol] 18 U/L Normal 10-54 [facility] Comment on above: Order Comment: Speci men Type: BLOOD SPECIMENOrdering Facility: [facility] Address: [address] [place] [address] Performed By: #### 2 4323-8 ####[facility] LABCLIA [id number] [place] [address] Anion gap [Moles/Vol] 10 mmol/L Normal 9-18 [facility] Comment on above: Order Comment: Speci men Type: BLOOD SPECIMENOrdering Facility: [facility] Address: [address] [place] [address] Performed By: #### 2 4323-8 ####[facility] LABCLIA [id number] [place] [address] AST [Catalytic activity/Vol] 16 U/L Normal 14-40 [facility] Comment on above: Order Comment: Speci men Type: BLOOD SPECIMENOrdering Facility: [facility] Address: [address] [place] [address] Performed By: #### 2 4323-8 ####[facility] LABCLIA [id number] [place] [address] Bilirubin [Mass/Vol] 0.7 mg/dL Normal 0.2-1.3 [facility] Comment on above: Order Comment: Speci men Type: BLOOD SPECIMENOrdering Facility: [facility] Address: [address] [place] [address] Performed By: #### 2 4323-8 ####[facility] LABCLIA [id number] [place] [address] Calcium [Mass/Vol] 10.3 mg/dL High 8.5-10.2 [facility] Comment on above: Order Comment: Speci men Type: BLOOD SPECIMENOrdering Facility: [facility] Address: [address] [place] [address] Performed By: #### 2 4323-8 ####[facility] LABCLIA [id number] [place] [address] Chloride [Moles/Vol] 109 mmol/L High 97-105 [facility] Comment on above: Order Comment: Speci men Type: BLOOD SPECIMENOrdering Facility: [facility] Address: [address] [place] [address] Performed By: #### 2 4323-8 ####[facility] LABCLIA [id number] [place] [address] CO2 [Moles/Vol] 24 mmol/L Normal 22-30 [facility] Comment on above: Order Comment: Speci men Type: BLOOD SPECIMENOrdering Facility: [facility] Address: [address] [id number] Performed By: #### 2 4323-8 ####[facility] LABCLIA [id number] [place] [address] Creatinine [Mass/Vol] 0.81 mg/dL Normal 0.73-1.22 [facility] Comment on above: Order Comment: Speci men Type: BLOOD SPECIMENOrdering Facility: [facility] Address: [address] [place] [address] Performed By: #### 2 4323-8 ####[facility] LABCLIA [id number] [place] [address] Creatinine and Glomerular filtration rate.predicted panel (S/P/Bld) 94 mL/min/1.73m??? Normal >=60 [facility] Comment on above: Order Comment: Speci men Type: BLOOD SPECIMENOrdering Facility: [facility] Address: [address] [place] [address] Result Comment: Kathy mated Glomerular Filtration Rate (eGFR) is calculated using the 2020 CKD-EPI creatinine equation. This equation utilizes serum creatinine, sex, and age as parameters. The creatinine assay has traceable calibration to isotope dilution-mass spectrometry. Refer to KDIGO guidelines for clinical interpretation. In patients with unstable renal function, e.g. those with acute kidney injury, the eGFR may not accurately reflect actual GFR. Performed By: #### 2 4323-8 ####[facility] LABCLIA [id number] [place] [address] Glucose [Mass/Vol] 142 mg/dL High 74-99 [facility] Comment on above: Order Comment: Speci men Type: BLOOD SPECIMENOrdering Facility: [facility] Address: [address] [id number] Result Comment: The [place] Diabetes Association (ADA) provides guidance for cutoff values for fasting glucose and random glucose. The ADA defines fasting as no caloric intake for at least 8 hours. Fasting plasma glucose results between 100 to 125 mg/dL indicate increased risk for diabetes (prediabetes).Fasting plasma glucose results greater than or equal to 126 mg/dL meet the criteria for diagnosis of diabetes. In the absence of unequivocal hyperglycemia, results should be confirmed by repeat testing. In a patient with classic symptoms of hyperglycemia or hyperglycemic crisis, random plasma glucose results greater than or equal to 200 mg/dL meet the criteria for diagnosis of diabetes.Reference: Standards of Medical Care in Diabetes 2016, [place] [employer]. Diabetes Care. 2016.39(Suppl 1). Performed By: #### 2 4323-8 ####[facility] LABCLIA [id number] [place] [address] Potassium [Moles/Vol] 4.4 mmol/L Normal 3.7-5.1 [facility] Comment on above: Order Comment: Speci men Type: BLOOD SPECIMENOrdering Facility: [facility] Address: [address] [place] [address] Performed By: #### 2 4323-8 ####[facility] LABCLIA [id number] [place] [address] Protein [Mass/Vol] 6.6 g/dL Normal 6.3-8.0 [facility] Comment on above: Order Comment: Rajanii luis eduardo Type: BLOOD SPECIMENOrdering Facility: [facility] Address: [address] [place] [address] Performed By: #### 2 4323-8 ####[facility] LABCLIA [id number] [place] [address] Sodium [Moles/Vol] 143 mmol/L Normal 136-144 [facility] Comment on above: Order Comment: Speci men Type: BLOOD SPECIMENOrdering Facility: [facility] Address: [address] [place] [address] Performed By: #### 2 4323-8 ####[facility] LABCLIA [id number] [place] [address] Urea nitrogen [Mass/Vol] 16 mg/dL Normal -24 [facility] Comment on above: Order Comment: Speci men Type: BLOOD SPECIMENOrdering Facility: [facility] Address: [address] [address] Performed By: #### 2 4323-8 ####[facility] LABCLIA [id number] [place] [address] Comprehensive metabolic 2000 panelOrdered By: Je Elias on 09-13-2023 Albumin [Mass/Vol] 3.8 g/dL Low 3.9 - 4.9 g/dL [facility] ALP [Catalytic activity/Vol] 136 U/L High 38 - 113 U/L [facility] ALT [Catalytic activity/Vol] 18 U/L 10 - 54 U/L [facility] Anion gap [Moles/Vol] 10 mmol/L 9 - 18 mmol/L [facility] AST [Catalytic activity/Vol] 16 U/L 14 - 40 U/L [facility] Bilirubin [Mass/Vol] 0.7 mg/dL 0.2 - 1.3 mg/dL [facility] Calcium [Mass/Vol] 10.3 mg/dL High 8.5 - 10. 2 mg/dL [facility] Chloride [Moles/Vol] 109 mmol/L High 97 - 105 mmol/L [facility] CO2 [Moles/Vol] 24 mmol/L 22 - 30 mmol/L [facility] Creatinine [Mass/Vol] 0.81 mg/dL 0.73 - 1.22 mg/dL [facility] GFR/1.73 sq M.predicted among non-blacks MDRD (S/P/Bld) [Vol rate/Area] 94 mL/min/{1.73_m2} - PINF [facility] Comment on above: Estimated Glomerular Filtration Rate (eGFR) is calculated using the 2020 CKD-EPI creatinine equation. This equation utilizes serum creatinine, sex, and age as parameters. The creatinine assay has traceable calibration to isotope dilution-mass spectrometry. Refer to KDIGO guidelines for clinical interpretation. In patients with unstable renal function, e.g. those with acute kidney injury, the eGFR may not accurately reflect actual GFR. Glucose [Mass/Vol] 142 mg/dL High 74 - 99 mg/dL [facility] Comment on above: The [place] Diabete s Association (ADA) provides guidance for cutoff values for fasting glucose and random glucose. The ADA defines fasting as no caloric intake for at least 8 hours. Fasting plasma glucose results between 100 to 125 mg/dL indicate increased risk for diabetes (prediabetes). Fasting plasma glucose results greater than or equal to 126 mg/dL meet the criteria for diagnosis of diabetes. In the absence of unequivocal hyperglycemia, results should be confirmed by repeat testing. In a patient with classic symptoms of hyperglycemia or hyperglycemic crisis, random plasma glucose results greater than or equal to 200 mg/dL meet the criteria for diagnosis of diabetes. Reference: Standards of Medical Care in Diabetes 2016, [place] [employer]. Diabetes Care. 2016.39(Suppl 1). Interpretation and review of laboratory results Abnormal [facility] Potassium [Moles/Vol] 4.4 mmol/L 3.7 - 5.1 mmol/L [facility] Protein [Mass/Vol] 6.6 g/dL 6.3 - 8.0 g/dL [facility] Sodium [Moles/Vol] 143 mmol/L 136 - 144 mmol/L [facility] Urea nitrogen [Mass/Vol] 16 mg/dL 9 - 24 mg/dL [facility] FERRITIN BLDon 09-13-2023 Ferritin [Mass/Vol] 56.8 ng/mL 30.3 - 565.7 ng/mL [facility] Ferritin SerPl-mCncon 2023 Ferritin [Mass/Vol] 56.8 ng/mL Normal 30.3-565.7 [facility] Comment on above: Order Comment: Speci men Type: BLOOD SPECIMENOrdering Facility: [facility] Address: [address] [place] [address] Performed By: #### 5 0190-8, 2276-4, 2132-9 ####[facility] LABCLIA [id number] [place] [address] [place] Iron and Iron binding capaci ty panelon 09-13-2023 Interpretation and review of laboratory results Normal [facility] Iron [Mass/Vol] 55 ug/dL 41 - 186 ug/dL [facility] Iron binding capacity [Mass/Vol] 335 ug/dL 232 - 386 ug/dL [facility] Iron/TIBC [Molar ratio] 16.4 % 15.0 - 57.0 % [facility] Iron [Mass/Vol] 55 ug/dL Normal 41-186 [facility] Comment on above: Order Comment: Speci men Type: BLOOD SPECIMENOrdering Facility: [facility] Address: [address] [place] [address] Performed By: #### 5 0190-8, 6-4, 2132-01 ####[facility] LABCLIA [id number] [address] [place] Iron binding capacity [Mass/Vol] 335 ug/dL Normal 232-386 [facility] Comment on above: Order Comment: Speci men Type: BLOOD SPECIMENOrdering Facility: [facility] Address: [address] [place] [address] Performed By: #### 5 0190-8, 6-4, 2132-01 ####[facility] LABCLIA [id number] [place] [address] [place] Iron/TIBC [Molar ratio] 16.4 % Normal 15.0-57.0 [facility] Comment on above: Order Comment: Speci men Type: BLOOD SPECIMENOrdering Facility: [facility] Address: [address] [place] [address] Performed By: #### 5 0190-8, 6-4, 2132-01 ####[facility] LABCLIA [id number] [place] [address] [place] No Panel Informationon 09-12 Interpretation and review of laboratory results Normal [facility] VITAMIN B12 BLOODon 09-13-19 24 Cobalamin (Vitamin B12) [Mass/Vol] 720 pg/mL 232 - 1245 pg/mL [facility] Vit B12 SerPl-mCncon 024 Cobalamin (Vitamin B12) [Mass/Vol] 720 pg/mL Normal 232-1245 [facility] Comment on above: Order Comment: Speci men Type: BLOOD SPECIMENOrdering Facility: [facility] Address: [address] [place] [address] Performed By: #### 5 0190-8, 2276-4, 2132-9 ####[facility] LABCLIA [id number] MEERAMaribel [facility] [id number] [address] [place] CBC W Auto Differential pane l (Bld)on 08-23-2023 Basophils (Bld) [#/Vol] 10*3/uL Normal <0.11 [facility] Comment on above: Order Comment: Speci men Type: BLOOD SPECIMENOrdering Facility: [facility] Address: [address] [place] [address] Performed By: #### 5 7021-8 ####[facility] LABCLIA [id number] [place] [address] Basophils/100 WBC (Bld) 0.4 % Normal [facility] Comment on above: Order Comment: Speci men Type: BLOOD SPECIMENOrdering Facility: [facility] Address: [address] [place] [address] Performed By: #### 5 7021-8 ####[facility] LABCLIA [id number] [place] [address] Differential cell count method Nom (Bld) Auto Normal [facility] Comment on above: Order Comment: Speci men Type: BLOOD SPECIMENOrdering Facility: [facility] Address: [address] [place] [address] Performed By: #### 5 7021-8 ####[facility] LABCLIA [id number] [place] [address] Eosinophils (Bld) [#/Vol] 0.04 10*3/uL Normal <0.46 [facility] Comment on above: Order Comment: Speci men Type: BLOOD SPECIMENOrdering Facility: [facility] Address: [address] [place] [address] Performed By: #### 5 7021-8 ####[facility] LABCLIA [id number] [place] [address] Eosinophils/100 WBC (Bld) 0.8 % Normal [facility] Comment on above: Order Comment: Speci men Type: BLOOD SPECIMENOrdering Facility: [facility] Address: [address] [place] [address] Performed By: #### 5 7021-8 ####[facility] LABCLIA [id number] [place] [address] Erythrocyte distribution width (RBC) [Ratio] 15.3 % High 11.5-15.0 [facility] Comment on above: Order Comment: Speci men Type: BLOOD SPECIMENOrdering Facility: [facility] Address: [address] [place] [address] Performed By: #### 5 7021-8 ####[facility] LABCLIA [id number] [place] [address] Hematocrit (Bld) [Volume fraction] 34.6 % Low 39.0-51.0 [facility] Comment on above: Order Comment: Speci men Type: BLOOD SPECIMENOrdering Facility: [facility] Address: [address] [place] [address] Performed By: #### 5 7021-8 ####[facility] LABCLIA [id number] [place] [address] Hemoglobin (Bld) [Mass/Vol] 11.3 g/dL Low 13.0-17.0 [facility] Comment on above: Order Comment: Speci men Type: BLOOD SPECIMENOrdering Facility: [facility] Address: [address] [place] [address] Performed By: #### 5 7021-8 ####[facility] LABCLIA [id number] [place] [address] Immature granulocytes (Bld) [#/Vol] 10*3/uL Normal <0.10 [facility] Comment on above: Order Comment: Speci men Type: BLOOD SPECIMENOrdering Facility: [facility] Address: [address] [place] [address] Performed By: #### 5 7021-8 ####[facility] LABCLIA [id number] [place] [address] Immature granulocytes/100 WBC (Bld) 0.4 % Normal [facility] Comment on above: Order Comment: Speci men Type: BLOOD SPECIMENOrdering Facility: [facility] Address: [address] [place] [address] Performed By: #### 5 7021-8 ####[facility] LABCLIA [id number] [place] [address] Lymphocytes (Bld) [#/Vol] 1.95 10*3/uL Normal 1.00-4.00 [facility] Comment on above: Order Comment: Speci men Type: BLOOD SPECIMENOrdering Facility: [facility] Address: [address] [place] [address] Performed By: #### 5 7021-8 ####[facility] LABCLIA [id number] [place] [address] Lymphocytes/100 WBC (Bld) 40.7 % Normal [facility] Comment on above: Order Comment: Speci men Type: BLOOD SPECIMENOrdering Facility: [facility] Address: [address] [place] [address] Performed By: #### 5 7021-8 ####[facility] LABCLIA [id number] [place] [address] MCH (RBC) [Entitic mass] 34.1 pg High 26.0-34.0 [facility] Comment on above: Order Comment: Speci men Type: BLOOD SPECIMENOrdering Facility: [facility] Address: [address] [place] [address] Performed By: #### 5 7021-8 ####[facility] LABIA [id number] [place] [address] MCHC (RBC) [Mass/Vol] 32.7 g/dL Normal 30.5-36.0 [facility] Comment on above: Order Comment: Speci men Type: BLOOD SPECIMENOrdering Facility: [facility] Address: [address] [place] [address] Performed By: #### 5 7021-8 ####[facility] LABCLIA [id number] [place] [address] MCV (RBC) [Entitic vol] 104.5 fL High 80.0-100.0 [facility] Comment on above: Order Comment: Speci men Type: BLOOD SPECIMENOrdering Facility: [facility] Address: [address] [place] [address] Performed By: #### 5 7021-8 ####[facility] LABCLIA [id number] [place] [address] Monocytes (Bld) [#/Vol] 0.72 10*3/uL Normal <0.87 [facility] Comment on above: Order Comment: Speci men Type: BLOOD SPECIMENOrdering Facility: [facility] Address: [address] [place] [address] Performed By: #### 5 7021-8 ####[facility] LABCLIA [id number] [place] [address] Monocytes/100 WBC (Bld) 15.0 % Normal [facility] Comment on above: Order Comment: Speci men Type: BLOOD SPECIMENOrdering Facility: [facility] Address: [address] [place] [address] Performed By: #### 5 7021-8 ####[facility] LABCLIA [id number] [place] [address] Neutrophils (Bld) [#/Vol] 2.04 10*3/uL Normal 1.45-7.50 [facility] Comment on above: Order Comment: Speci men Type: BLOOD SPECIMENOrdering Facility: [facility] Address: [address] [place] [address] Performed By: #### 5 7021-8 ####[facility] LABCLIA [id number] [place] [address] Neutrophils/100 WBC (Bld) 42.7 % Normal [facility] Comment on above: Order Comment: Speci men Type: BLOOD SPECIMENOrdering Facility: [facility] Address: [address] [place] [address] Performed By: #### 5 7021-8 ####[facility] LABCLIA [id number] [place] [address] Nucleated RBC (Bld) [#/Vol] 10*3/uL Normal <0.01 [facility] Comment on above: Order Comment: Speci men Type: BLOOD SPECIMENOrdering Facility: [facility] Address: [address] [place] [address] Performed By: #### 5 7021-8 ####[facility] LABCLIA [id number] [place] [address] Nucleated RBC/100 WBC (Bld) [Ratio] 0.0 /[address] [facility] Comment on above: Order Comment: Speci men Type: BLOOD SPECIMENOrdering Facility: [facility] Address: [address] [place] [address] Performed By: #### 5 7021-8 ####[facility] LABCLIA [id number] [place] [address] Platelet mean volume (Bld) [Entitic vol] 10.0 fL Normal 9.0-12.7 [facility] Comment on above: Order Comment: Speci men Type: BLOOD SPECIMENOrdering Facility: [facility] Address: [address] [place] [address] Performed By: #### 5 7021-8 ####[facility] LABCLIA [id number] [place] [address] Platelets (Bld) [#/Vol] 241 10*3/uL Normal 150-400 [facility] Comment on above: Order Comment: Speci men Type: BLOOD SPECIMENOrdering Facility: [facility] Address: [address] [place], [place] [address] Performed By: #### 5 7021-8 ####[facility] LABCLIA [id number] [place] [address] RBC (Bld) [#/Vol] 3.31 10*6/uL Low 4.20-6.00 [facility] Comment on above: Order Comment: Speci men Type: BLOOD SPECIMENOrdering Facility: [facility] Address: [address] [place], [place] [address] Performed By: #### 5 7021-8 ####[facility] LABCLIA [id number] [place] [address] WBC (Bld) [#/Vol] 4.79 10*3/uL Normal 3.70-11.00 [facility] Comment on above: Order Comment: Speci men Type: BLOOD SPECIMENOrdering Facility: [facility] Address: [address] [place], [place] [address] Performed By: #### 5 7021-8 ####[facility] LABCLIA [id number] [place] [address] Basophils (Bld) [#/Vol] <0.11 k/uL [facility] Basophils/100 WBC (Bld) 0.4 % [facility] Differential cell count method Nom (Bld) Auto [facility] Eosinophils (Bld) [#/Vol] 0.04 10*3/uL <0.46 k/uL [facility] Eosinophils/100 WBC (Bld) 0.8 % [facility] Erythrocyte distribution width (RBC) [Ratio] 15.3 % High 11.5 - 15.0 % [facility] Hematocrit (Bld) [Volume fraction] 34.6 % Low 39.0 - 51.0 % [facility] Hemoglobin (Bld) [Mass/Vol] 11.3 g/dL Low 13.0 - 17.0 g/dL [facility] Immature granulocytes (Bld) [#/Vol] <0.10 k/uL [facility] Immature granulocytes/100 WBC (Bld) 0.4 % [facility] Lymphocytes (Bld) [#/Vol] 1.95 10*3/uL 1.00 - 4.00 k/uL [facility] Lymphocytes/100 WBC (Bld) 40.7 % [facility] MCH (RBC) [Entitic mass] 34.1 pg High 26.0 - 34.0 pg [facility] MCHC (RBC) [Mass/Vol] 32.7 g/dL 30.5 - 36.0 g/dL [facility] MCV (RBC) [Entitic vol] 104.5 fL High 80.0 - 100.0 fL [facility] Monocytes (Bld) [#/Vol] 0.72 10*3/uL <0.87 k/uL [facility] Monocytes/100 WBC (Bld) 15.0 % [facility] Neutrophils (Bld) [#/Vol] 2.04 10*3/uL 1.45 - 7.50 k/uL [facility] Neutrophils/100 WBC (Bld) 42.7 % [facility] Nucleated RBC (Bld) [#/Vol] <0.01 k/uL [facility] Nucleated RBC/100 WBC (Bld) [Ratio] 0.0 /100 WBC [facility] Platelet mean volume (Bld) [Entitic vol] 10.0 fL 9.0 - 12.7 fL [facility] Platelets (Bld) [#/Vol] 241 10*3/uL 150 - 400 k/uL [facility] RBC (Bld) [#/Vol] 3.31 10*6/uL Low 4.20 - 6.0 0 m/uL [facility] WBC (Bld) [#/Vol] 4.79 10*3/uL 3.70 - 11. 00 k/uL [facility] CNOVSPon 08-23-[address] [facility] Cancer Ag19-9 SerPl-aCncon 0 08-23-2023 Cancer Ag 19-9 Qn 1509.0 [arb'U]/mL High <36.0 [facility] Comment on above: Order Comment: Speci men Type: BLOOD SPECIMENOrdering Facility: [facility] Address: [address] [place] [address] Result Comment: [facility] er antigen 19-9 test is used as an aid in monitoring response to treatment or recurrence in patients with established pancreatic, hepatobiliary, or gastrointestinal malignancies. Clinical correlation is required.The CA 19-9 Antigen test was performed using the Elle [employer] DXI paramagnetic particle chemiluminescent immunoassay method. Results obtained with different assay methods or kits cannot be used interchangeably. Performed By: #### 2 4108-3 ####[facility] LABCLIA [id number] [facility] [place] [id number] [facility] [place] Comprehensive metabolic 2000 panelon 08-23-2023 Albumin [Mass/Vol] 4.0 g/dL Normal 3.9-4.9 [facility] Comment on above: Order Comment: Speci men Type: BLOOD SPECIMENOrdering Facility: [facility] Address: [address] [place] [address] Performed By: #### 2 4323-8 ####[facility] LABCLIA [id number] [place] [address] ALP [Catalytic activity/Vol] 139 U/L High 38-113 [facility] Comment on above: Order Comment: Speci men Type: BLOOD SPECIMENOrdering Facility: [facility] Address: [address] [place] [address] Performed By: #### 2 4323-8 ####[facility] LABCLIA [id number] [place] [address] ALT [Catalytic activity/Vol] 16 U/L Normal 10-54 [facility] Comment on above: Order Comment: Speci men Type: BLOOD SPECIMENOrdering Facility: [facility] Address: [address] [place] [address] Performed By: #### 2 4323-8 ####[facility] LABCLIA [id number] [place] [address] Anion gap [Moles/Vol] 9 mmol/L Normal 9-18 [facility] Comment on above: Order Comment: Speci men Type: BLOOD SPECIMENOrdering Facility: [facility] Address: [address] [place] [address] Performed By: #### 2 4323-8 ####[facility] LABCLIA [id number] [place] [address] AST [Catalytic activity/Vol] 16 U/L Normal 14-40 [facility] Comment on above: Order Comment: Speci men Type: BLOOD SPECIMENOrdering Facility: [facility] Address: [address] [place] [address] Performed By: #### 2 4323-8 ####[facility] LABCLIA [id number] [place] [address] Bilirubin [Mass/Vol] 0.8 mg/dL Normal 0.2-1.3 [facility] Comment on above: Order Comment: Speci men Type: BLOOD SPECIMENOrdering Facility: [facility] Address: [address] [place] [address] Performed By: #### 2 4323-8 ####[facility] LABCLIA [id number] [place] [address] Calcium [Mass/Vol] 10.7 mg/dL High 8.5-10.2 [facility] Comment on above: Order Comment: Speci men Type: BLOOD SPECIMENOrdering Facility: [facility] Address: [address] [place] [address] Performed By: #### 2 4323-8 ####[facility] LABCLIA [id number] [place] [address] Chloride [Moles/Vol] 105 mmol/L Normal 97-105 [facility] Comment on above: Order Comment: Speci men Type: BLOOD SPECIMENOrdering Facility: [facility] Address: [address] [place] [address] Performed By: #### 2 4323-8 ####[facility] LABCLIA [id number] [place] [address] CO2 [Moles/Vol] 25 mmol/L Normal 22-30 [facility] Comment on above: Order Comment: Speci men Type: BLOOD SPECIMENOrdering Facility: [facility] Address: [address] [place] [address] Performed By: #### 2 4323-8 ####[facility] LABCLIA [id number] [place] [address] Creatinine [Mass/Vol] 0.83 mg/dL Normal 0.73-1.22 [facility] Comment on above: Order Comment: Speci men Type: BLOOD SPECIMENOrdering Facility: [facility] Address: [address] [place] [address] Performed By: #### 2 4323-8 ####[facility] LABCLIA [id number] [place] [address] Creatinine and Glomerular filtration rate.predicted panel (S/P/Bld) 93 mL/min/1.73m??? Normal >=60 [facility] Comment on above: Order Comment: Speci men Type: BLOOD SPECIMENOrdering Facility: [facility] Address: [address] [place] [address] Result Comment: Kathy mated Glomerular Filtration Rate (eGFR) is calculated using the 2020 CKD-EPI creatinine equation. This equation utilizes serum creatinine, sex, and age as parameters. The creatinine assay has traceable calibration to isotope dilution-mass spectrometry. Refer to KDIGO guidelines for clinical interpretation. In patients with unstable renal function, e.g. those with acute kidney injury, the eGFR may not accurately reflect actual GFR. Performed By: #### 2 4323-8 ####[facility] LABCLIA [id number] [place] [address] Glucose [Mass/Vol] 142 mg/dL High 74-99 [facility] Comment on above: Order Comment: Speci men Type: BLOOD SPECIMENOrdering Facility: [facility] Address: [address] [place] [address] Result Comment: The [place] Diabetes [employer] (ADA) provides guidance for cutoff values for fasting glucose and random glucose. The ADA defines fasting as no caloric intake for at least 8 hours. Fasting plasma glucose results between 100 to 125 mg/dL indicate increased risk for diabetes (prediabetes).Fasting plasma glucose results greater than or equal to 126 mg/dL meet the criteria for diagnosis of diabetes. In the absence of unequivocal hyperglycemia, results should be confirmed by repeat testing. In a patient with classic symptoms of hyperglycemia or hyperglycemic crisis, random plasma glucose results greater than or equal to 200 mg/dL meet the criteria for diagnosis of diabetes.Reference: Standards of Medical Care in Diabetes 2016, [place] [employer]. Diabetes Care. 2016.39(Suppl 1). Performed By: #### 2 4323-8 ####[facility] LABCLIA [id number] [place] [address] Potassium [Moles/Vol] 4.1 mmol/L Normal 3.7-5.1 [facility] Comment on above: Order Comment: Speci men Type: BLOOD SPECIMENOrdering Facility: [facility] Address: [address] [place] [address] Performed By: #### 2 4323-8 ####[facility] LABCLIA [id number] [place] [address] Protein [Mass/Vol] 6.9 g/dL Normal 6.3-8.0 [facility] Comment on above: Order Comment: Speci men Type: BLOOD SPECIMENOrdering Facility: [facility] Address: [address] [place] [address] Performed By: #### 2 4323-8 ####[facility] LABCLIA [id number] [place] [address] Sodium [Moles/Vol] 139 mmol/L Normal 136-144 [facility] Comment on above: Order Comment: Speci men Type: BLOOD SPECIMENOrdering Facility: [facility] Address: [address] [place] [address] Performed By: #### 2 4323-8 ####[facility] LABCLIA [id number] [place] [address] Urea nitrogen [Mass/Vol] 19 mg/dL Normal 9-24 [facility] Comment on above: Order Comment: Speci men Type: BLOOD SPECIMENOrdering Facility: [facility] Address: [address] [place] [address] Performed By: #### 2 4323-8 ####[facility] LABCLIA [id number] [place] [address] Albumin [Mass/Vol] 4.0 g/dL 3.9 - 4.9 g/dL [facility] ALP [Catalytic activity/Vol] 139 U/L High 38 - 113 U/L [facility] ALT [Catalytic activity/Vol] 16 U/L 10 - 54 U/L [facility] Anion gap [Moles/Vol] 9 mmol/L 9 - 18 mmol/L [facility] AST [Catalytic activity/Vol] 16 U/L 14 - 40 U/L [facility] Bilirubin [Mass/Vol] 0.8 mg/dL 0.2 - 1.3 mg/dL [facility] Calcium [Mass/Vol] 10.7 mg/dL High 8.5 - 10. 2 mg/dL [facility] Chloride [Moles/Vol] 105 mmol/L 97 - 105 mmol/L [facility] CO2 [Moles/Vol] 25 mmol/L 22 - 30 mmol/L [facility] Creatinine [Mass/Vol] 0.83 mg/dL 0.73 - 1.22 mg/dL [facility] Estimated Glomerular Filtration Rate 93 mL/min/1.73m >=60 mL/min/1.73m [facility] Glucose [Mass/Vol] 142 mg/dL High 74 - 99 mg/dL [facility] Potassium [Moles/Vol] 4.1 mmol/L 3.7 - 5.1 mmol/L [facility] Protein [Mass/Vol] 6.9 g/dL 6.3 - 8.0 g/dL [facility] Sodium [Moles/Vol] 139 mmol/L 136 - 144 mmol/L [facility] Urea nitrogen [Mass/Vol] 19 mg/dL 9 - 24 mg/dL [facility] CNPNon 08-18-[address] [facility] CT ABD/PEL W IVCONon 024 CT ABD/PEL W IVCON Normal [facility] CT CHEST W IVCONon 4 CT CHEST W IVCON Normal [facility] CNPNon 08-09-[address] [facility] CBC W Auto Differential pane l (Bld)on 08-02-2023 Basophils (Bld) [#/Vol] 10*3/uL Normal <0.11 [facility] Comment on above: Order Comment: Speci men Type: BLOOD SPECIMENOrdering Facility: [facility] Address: [address] [place] [address] Performed By: #### 5 7021-8 ####[facility] LABCLIA [id number] [place] [address] Basophils/100 WBC (Bld) 0.4 % Normal [facility] Comment on above: Order Comment: Speci men Type: BLOOD SPECIMENOrdering Facility: [facility] Address: [address] [place] [address] Performed By: #### 5 7021-8 ####[facility] LABCLIA [id number] [place] [address] Differential cell count method Nom (Bld) Auto Normal [facility] Comment on above: Order Comment: Speci men Type: BLOOD SPECIMENOrdering Facility: [facility] Address: [address] [place] [address] Performed By: #### 5 7021-8 ####[facility] LABCLIA [id number] [place] [address] Eosinophils (Bld) [#/Vol] 0.07 10*3/uL Normal <0.46 [facility] Comment on above: Order Comment: Speci men Type: BLOOD SPECIMENOrdering Facility: [facility] Address: [address] [place] [address] Performed By: #### 5 7021-8 ####[facility] LABCLIA [id number] [place] [address] Eosinophils/100 WBC (Bld) 1.3 % Normal [facility] Comment on above: Order Comment: Speci men Type: BLOOD SPECIMENOrdering Facility: [facility] Address: [address] [place] [address] Performed By: #### 5 7021-8 ####[facility] LABCLIA [id number] [place] [address] Erythrocyte distribution width (RBC) [Ratio] 17.4 % High 11.5-15.0 [facility] Comment on above: Order Comment: Speci men Type: BLOOD SPECIMENOrdering Facility: [facility] Address: [address] [place] [address] Performed By: #### 5 7021-8 ####[facility] LABCLIA [id number] [place] [address] Hematocrit (Bld) [Volume fraction] 31.6 % Low 39.0-51.0 [facility] Comment on above: Order Comment: Speci men Type: BLOOD SPECIMENOrdering Facility: [facility] Address: [address] [place] [address] Performed By: #### 5 7021-8 ####[facility] LABCLIA [id number] [place] [address] Hemoglobin (Bld) [Mass/Vol] 10.3 g/dL Low 13.0-17.0 [facility] Comment on above: Order Comment: Speci men Type: BLOOD SPECIMENOrdering Facility: [facility] Address: [address] [place] [address] Performed By: #### 5 7021-8 ####[facility] LABCLIA [id number] [place] [address] Immature granulocytes (Bld) [#/Vol] 10*3/uL Normal <0.10 [facility] Comment on above: Order Comment: Speci men Type: BLOOD SPECIMENOrdering Facility: [facility] Address: [address] [place] [address] Performed By: #### 5 7021-8 ####[facility] LABCLIA [id number] [place] [address] Immature granulocytes/100 WBC (Bld) 0.4 % Normal [facility] Comment on above: Order Comment: Speci men Type: BLOOD SPECIMENOrdering Facility: [facility] Address: [address] [place] [address] Performed By: #### 5 7021-8 ####[facility] LABCLIA [id number] [place] [address] Lymphocytes (Bld) [#/Vol] 1.29 10*3/uL Normal 1.00-4.00 [facility] Comment on above: Order Comment: Speci men Type: BLOOD SPECIMENOrdering Facility: [facility] Address: [address] [place] [address] Performed By: #### 5 7021-8 ####[facility] LABCLIA [id number] [place] [address] Lymphocytes/100 WBC (Bld) 24.0 % Normal [facility] Comment on above: Order Comment: Speci men Type: BLOOD SPECIMENOrdering Facility: [facility] Address: [address] [place] [address] Performed By: #### 5 7021-8 ####[facility] LABCLIA [id number] [place] [address] MCH (RBC) [Entitic mass] 34.0 pg Normal 26.0-34.0 [facility] Comment on above: Order Comment: Speci men Type: BLOOD SPECIMENOrdering Facility: [facility] Address: [address] [place] [address] Performed By: #### 5 7021-8 ####[facility] LABCLIA [id number] [place] [address] MCHC (RBC) [Mass/Vol] 32.6 g/dL Normal 30.5-36.0 [facility] Comment on above: Order Comment: Speci men Type: BLOOD SPECIMENOrdering Facility: [facility] Address: [address] [place] [address] Performed By: #### 5 7021-8 ####[facility] LABCLIA [id number] [place] [address] MCV (RBC) [Entitic vol] 104.3 fL High 80.0-100.0 [facility] Comment on above: Order Comment: Speci men Type: BLOOD SPECIMENOrdering Facility: [facility] Address: [address] [place] [address] Performed By: #### 5 7021-8 ####[facility] LABCLIA [id number] [place] [address] Monocytes (Bld) [#/Vol] 0.48 10*3/uL Normal <0.87 [facility] Comment on above: Order Comment: Speci men Type: BLOOD SPECIMENOrdering Facility: [facility] Address: [address] [place] [address] Performed By: #### 5 7021-8 ####[facility] LABCLIA [id number] [place] [address] Monocytes/100 WBC (Bld) 8.9 % Normal [facility] Comment on above: Order Comment: Speci men Type: BLOOD SPECIMENOrdering Facility: [facility] Address: [address] [place] [address] Performed By: #### 5 7021-8 ####[facility] LABCLIA [id number] [place] [address] Neutrophils (Bld) [#/Vol] 3.50 10*3/uL Normal 1.45-7.50 [facility] Comment on above: Order Comment: Speci men Type: BLOOD SPECIMENOrdering Facility: [facility] Address: [address] [place] [address] Performed By: #### 5 7021-8 ####[facility] LABCLIA [id number] [place] [address] Neutrophils/100 WBC (Bld) 65.0 % Normal [facility] Comment on above: Order Comment: Speci men Type: BLOOD SPECIMENOrdering Facility: [facility] Address: [address] [place] [address] Performed By: #### 5 7021-8 ####[facility] LABCLIA [id number] [place] [address] Nucleated RBC (Bld) [#/Vol] 10*3/uL Normal <0.01 [facility] Comment on above: Order Comment: Speci men Type: BLOOD SPECIMENOrdering Facility: [facility] Address: [address] [place] [address] Performed By: #### 5 7021-8 ####[facility] LABCLIA [id number] [place] [address] Nucleated RBC/100 WBC (Bld) [Ratio] 0.0 /[address] [facility] Comment on above: Order Comment: Speci men Type: BLOOD SPECIMENOrdering Facility: [facility] Address: [address] [place] [address] Performed By: #### 5 7021-8 ####[facility] LABCLIA [id number] [place] [address] Platelet mean volume (Bld) [Entitic vol] 9.2 fL Normal 9.0-12.7 [facility] Comment on above: Order Comment: Speci men Type: BLOOD SPECIMENOrdering Facility: [facility] Address: [address] [place] [address] Performed By: #### 5 7021-8 ####[facility] LABCLIA [id number] [place] [address] Platelets (Bld) [#/Vol] 224 10*3/uL Normal 150-400 [facility] Comment on above: Order Comment: Speci men Type: BLOOD SPECIMENOrdering Facility: [facility] Address: [address] [place] [address] Performed By: #### 5 7021-8 ####[facility] LABCLIA [id number] [place] [address] RBC (Bld) [#/Vol] 3.03 10*6/uL Low 4.20-6.00 [facility] Comment on above: Order Comment: Speci men Type: BLOOD SPECIMENOrdering Facility: [facility] Address: [address] [place] [address] Performed By: #### 5 7021-8 ####[facility] LABCLIA [id number] [place] [address] WBC (Bld) [#/Vol] 5.38 10*3/uL Normal 3.70-11.00 [facility] Comment on above: Order Comment: Speci men Type: BLOOD SPECIMENOrdering Facility: [facility] Address: [address] [place] [address] Performed By: #### 5 7021-8 ####[facility] LABCLIA [id number] [place] [address] Basophils (Bld) [#/Vol] <0.11 k/uL [facility] Basophils/100 WBC (Bld) 0.4 % [facility] Differential cell count method Nom (Bld) Auto [facility] Eosinophils (Bld) [#/Vol] 0.07 10*3/uL <0.46 k/uL [facility] Eosinophils/100 WBC (Bld) 1.3 % [facility] Erythrocyte distribution width (RBC) [Ratio] 17.4 % High 11.5 - 15.0 % [facility] Hematocrit (Bld) [Volume fraction] 31.6 % Low 39.0 - 51.0 % [facility] Hemoglobin (Bld) [Mass/Vol] 10.3 g/dL Low 13.0 - 17.0 g/dL [facility] Immature granulocytes (Bld) [#/Vol] <0.10 k/uL [facility] Immature granulocytes/100 WBC (Bld) 0.4 % [facility] Lymphocytes (Bld) [#/Vol] 1.29 10*3/uL 1.00 - 4.00 k/uL [facility] Lymphocytes/100 WBC (Bld) 24.0 % [facility] MCH (RBC) [Entitic mass] 34.0 pg 26.0 - 34.0 pg [facility] MCHC (RBC) [Mass/Vol] 32.6 g/dL 30.5 - 36.0 g/dL [facility] MCV (RBC) [Entitic vol] 104.3 fL High 80.0 - 100.0 fL [facility] Monocytes (Bld) [#/Vol] 0.48 10*3/uL <0.87 k/uL [facility] Monocytes/100 WBC (Bld) 8.9 % [facility] Neutrophils (Bld) [#/Vol] 3.50 10*3/uL 1.45 - 7.50 k/uL [facility] Neutrophils/100 WBC (Bld) 65.0 % [facility] Nucleated RBC (Bld) [#/Vol] <0.01 k/uL [facility] Nucleated RBC/100 WBC (Bld) [Ratio] 0.0 /100 WBC [facility] Platelet mean volume (Bld) [Entitic vol] 9.2 fL 9.0 - 12.7 fL [facility] Platelets (Bld) [#/Vol] 224 10*3/uL 150 - 400 k/uL [facility] RBC (Bld) [#/Vol] 3.03 10*6/uL Low 4.20 - 6.0 0 m/uL [facility] WBC (Bld) [#/Vol] 5.38 10*3/uL 3.70 - 11. 00 k/uL [facility] CNOVSPon 08-02-[address] [facility] Cancer Ag19-9 SerPl-aCncon 0 08-02-2023 Cancer Ag 19-9 Qn 1844.0 [arb'U]/mL High <36.0 [facility] Comment on above: Order Comment: Speci men Type: BLOOD SPECIMENOrdering Facility: [facility] Address: [facility] [place] [address] Result Comment: [facility] er antigen 19-9 test is used as an aid in monitoring response to treatment or recurrence in patients with established pancreatic, hepatobiliary, or gastrointestinal malignancies. Clinical correlation is required.The CA 19-9 Antigen test was performed using the [employer] DXI paramagnetic particle chemiluminescent immunoassay method. Results obtained with different assay methods or kits cannot be used interchangeably. Performed By: #### 2 4108-3 ####[facility] LABCLIA [id number] [place] [id number] [place] Comprehensive metabolic 2000 panelon 08-02-2023 Albumin [Mass/Vol] 3.9 g/dL Normal 3.9-4.9 [facility] Comment on above: Order Comment: Speci men Type: BLOOD SPECIMENOrdering Facility: [facility] Address: [address] [place] [address] Performed By: #### 2 4323-8 ####[facility] LABCLIA [id number] [place] [address] ALP [Catalytic activity/Vol] 137 U/L High 38-113 [facility] Comment on above: Order Comment: Speci men Type: BLOOD SPECIMENOrdering Facility: [facility] Address: [address] [place] [address] Performed By: #### 2 4323-8 ####[facility] LABCLIA [id number] [place] [address] ALT [Catalytic activity/Vol] 12 U/L Normal 10-54 [facility] Comment on above: Order Comment: Speci men Type: BLOOD SPECIMENOrdering Facility: [facility] Address: [address] [place] [address] Performed By: #### 2 4323-8 ####[facility] LABCLIA [id number] [place] [address] Anion gap [Moles/Vol] 10 mmol/L Normal 9-18 [facility] Comment on above: Order Comment: Speci men Type: BLOOD SPECIMENOrdering Facility: [facility] Address: [address] [place] [address] Performed By: #### 2 4323-8 ####[facility] LABIA [id number] [place] [address] AST [Catalytic activity/Vol] 13 U/L Low 14-40 [facility] Comment on above: Order Comment: Speci men Type: BLOOD SPECIMENOrdering Facility: [facility] Address: [address] [place] [address] Performed By: #### 2 4323-8 ####[facility] LABCLIA [id number] [place] [address] Bilirubin [Mass/Vol] 1.0 mg/dL Normal 0.2-1.3 [facility] Comment on above: Order Comment: Speci men Type: BLOOD SPECIMENOrdering Facility: [facility] Address: [address] [place] [address] Performed By: #### 2 4323-8 ####[facility] LABCLIA [id number] [place] [address] Calcium [Mass/Vol] 10.4 mg/dL High 8.5-10.2 [facility] Comment on above: Order Comment: Speci men Type: BLOOD SPECIMENOrdering Facility: [facility] Address: [address] [place] [address] Performed By: #### 2 4323-8 ####[facility] LABCLIA [id number] [place] [address] Chloride [Moles/Vol] 105 mmol/L Normal 97-105 [facility] Comment on above: Order Comment: Speci men Type: BLOOD SPECIMENOrdering Facility: [facility] Address: [address] [place] [address] Performed By: #### 2 4323-8 ####[facility] LABCLIA [id number] [place] [address] CO2 [Moles/Vol] 24 mmol/L Normal 22-30 [facility] Comment on above: Order Comment: Speci men Type: BLOOD SPECIMENOrdering Facility: [facility] Address: [address] [place] [address] Performed By: #### 2 4323-8 ####[facility] LABCLIA [id number] [place] [address] Creatinine [Mass/Vol] 0.86 mg/dL Normal 0.73-1.22 [facility] Comment on above: Order Comment: Speci men Type: BLOOD SPECIMENOrdering Facility: [facility] Address: [address] [place], [place] [address] Performed By: #### 2 4323-8 ####[facility] LABCLIA [id number] [place] [address] Creatinine and Glomerular filtration rate.predicted panel (S/P/Bld) 92 mL/min/1.73m??? Normal >=60 [facility] Comment on above: Order Comment: Noemí men Type: BLOOD SPECIMENOrdering Facility: [facility] Address: [address] [place] [address] Result Comment: Kathy mated Glomerular Filtration Rate (eGFR) is calculated using the 2020 CKD-EPI creatinine equation. This equation utilizes serum creatinine, sex, and age as parameters. The creatinine assay has traceable calibration to isotope dilution-mass spectrometry. Refer to KDIGO guidelines for clinical interpretation. In patients with unstable renal function, e.g. those with acute kidney injury, the eGFR may not accurately reflect actual GFR. Performed By: #### 2 4323-8 ####[facility] LABCLIA [id number] [place] [address] Glucose [Mass/Vol] 149 mg/dL High 74-99 [facility] Comment on above: Order Comment: Noemí hoff Type: BLOOD SPECIMENOrdering Facility: [facility] Address: [address] [place], [place] [address] Result Comment: The [place] [employer] (ADA) provides guidance for cutoff values for fasting glucose and random glucose. The ADA defines fasting as no caloric intake for at least 8 hours. Fasting plasma glucose results between 100 to 125 mg/dL indicate increased risk for diabetes (prediabetes).Fasting plasma glucose results greater than or equal to 126 mg/dL meet the criteria for diagnosis of diabetes. In the absence of unequivocal hyperglycemia, results should be confirmed by repeat testing. In a patient with classic symptoms of hyperglycemia or hyperglycemic crisis, random plasma glucose results greater than or equal to 200 mg/dL meet the criteria for diagnosis of diabetes.Reference: Standards of Medical Care in Diabetes 2016, [place] [employer]. Diabetes Care. 2016.39(Suppl 1). Performed By: #### 2 4323-8 ####[facility] LABCLIA [id number] [place] [address] Potassium [Moles/Vol] 4.0 mmol/L Normal 3.7-5.1 [facility] Comment on above: Order Comment: Speci men Type: BLOOD SPECIMENOrdering Facility: [facility] Address: [address] [place] [address] Performed By: #### 2 4323-8 ####[facility] LABCLIA [id number] [place] [address] Protein [Mass/Vol] 6.5 g/dL Normal 6.3-8.0 [facility] Comment on above: Order Comment: Speci men Type: BLOOD SPECIMENOrdering Facility: [facility] Address: [address] [place] [address] Performed By: #### 2 4323-8 ####[facility] LABCLIA [id number] [place] [address] Sodium [Moles/Vol] 139 mmol/L Normal 136-144 [facility] Comment on above: Order Comment: Speci men Type: BLOOD SPECIMENOrdering Facility: [facility] Address: [address] [place] [address] Performed By: #### 2 4323-8 ####[facility] LABCLIA [id number] [place] [address] Urea nitrogen [Mass/Vol] 20 mg/dL Normal 9-24 [facility] Comment on above: Order Comment: Speci men Type: BLOOD SPECIMENOrdering Facility: [facility] Address: [address] [place] [address] Performed By: #### 2 4323-8 ####[facility] LABCLIA [id number] [place] [address] Albumin [Mass/Vol] 3.9 g/dL 3.9 - 4.9 g/dL [facility] ALP [Catalytic activity/Vol] 137 U/L High 38 - 113 U/L [facility] ALT [Catalytic activity/Vol] 12 U/L 10 - 54 U/L [facility] Anion gap [Moles/Vol] 10 mmol/L 9 - 18 mmol/L [facility] AST [Catalytic activity/Vol] 13 U/L Low 14 - 40 U/L [facility] Bilirubin [Mass/Vol] 1.0 mg/dL 0.2 - 1.3 mg/dL [facility] Calcium [Mass/Vol] 10.4 mg/dL High 8.5 - 10. 2 mg/dL [facility] Chloride [Moles/Vol] 105 mmol/L 97 - 105 mmol/L [facility] CO2 [Moles/Vol] 24 mmol/L 22 - 30 mmol/L [facility] Creatinine [Mass/Vol] 0.86 mg/dL 0.73 - 1.22 mg/dL [facility] Estimated Glomerular Filtration Rate 92 mL/min/1.73m >=60 mL/min/1.73m [facility] Glucose [Mass/Vol] 149 mg/dL High 74 - 99 mg/dL [facility] Potassium [Moles/Vol] 4.0 mmol/L 3.7 - 5.1 mmol/L [facility] Protein [Mass/Vol] 6.5 g/dL 6.3 - 8.0 g/dL [facility] Sodium [Moles/Vol] 139 mmol/L 136 - 144 mmol/L [facility] Urea nitrogen [Mass/Vol] 20 mg/dL 9 - 24 mg/dL [facility] CBC W Auto Differential pane l (Bld)on 07-19-2023 Basophils (Bld) [#/Vol] 0.04 10*3/uL Normal <0.11 [facility] Comment on above: Order Comment: Speci men Type: BLOOD SPECIMENOrdering Facility: [facility] Address: [address] [place] [address] Performed By: #### 5 7021-8 ####[facility] LABCLIA [id number] [place] [address] Basophils/100 WBC (Bld) 0.7 % Normal [facility] Comment on above: Order Comment: Speci men Type: BLOOD SPECIMENOrdering Facility: [facility] Address: [address] [place] [address] Performed By: #### 5 7021-8 ####[facility] LABCLIA [id number] [place] [address] Differential cell count method Nom (Bld) Auto Normal [facility] Comment on above: Order Comment: Speci men Type: BLOOD SPECIMENOrdering Facility: [facility] Address: [address] [place] [address] Performed By: #### 5 7021-8 ####[facility] LABCLIA [id number] [place] [address] Eosinophils (Bld) [#/Vol] 0.09 10*3/uL Normal <0.46 [facility] Comment on above: Order Comment: Speci men Type: BLOOD SPECIMENOrdering Facility: [facility] Address: [address] [place] [address] Performed By: #### 5 7021-8 ####[facility] LABCLIA [id number] [place] [address] Eosinophils/100 WBC (Bld) 1.5 % Normal [facility] Comment on above: Order Comment: Speci men Type: BLOOD SPECIMENOrdering Facility: [facility] Address: [address] [place] [address] Performed By: #### 5 7021-8 ####[facility] LABCLIA [id number] [place] [address] Erythrocyte distribution width (RBC) [Ratio] 17.9 % High 11.5-15.0 [facility] Comment on above: Order Comment: Speci men Type: BLOOD SPECIMENOrdering Facility: [facility] Address: [address] [place] [address] Performed By: #### 5 7021-8 ####[facility] LABCLIA [id number] [place] [address] Hematocrit (Bld) [Volume fraction] 32.0 % Low 39.0-51.0 [facility] Comment on above: Order Comment: Speci men Type: BLOOD SPECIMENOrdering Facility: [facility] Address: [address] [place] [address] Performed By: #### 5 7021-8 ####[facility] LABCLIA [id number] [place] [address] Hemoglobin (Bld) [Mass/Vol] 10.5 g/dL Low 13.0-17.0 [facility] Comment on above: Order Comment: Speci men Type: BLOOD SPECIMENOrdering Facility: [facility] Address: [address] [place] [address] Performed By: #### 5 7021-8 ####[facility] LABCLIA [id number] [place] [address] Immature granulocytes (Bld) [#/Vol] 0.03 10*3/uL Normal <0.10 [facility] Comment on above: Order Comment: Speci men Type: BLOOD SPECIMENOrdering Facility: [facility] Address: [address] [place] [address] Performed By: #### 5 7021-8 ####[facility] LABCLIA [id number] [place] [address] Immature granulocytes/100 WBC (Bld) 0.5 % Normal [facility] Comment on above: Order Comment: Speci men Type: BLOOD SPECIMENOrdering Facility: [facility] Address: [address] [place] [address] Performed By: #### 5 7021-8 ####[facility] LABCLIA [id number] [place] [address] Lymphocytes (Bld) [#/Vol] 1.44 10*3/uL Normal 1.00-4.00 [facility] Comment on above: Order Comment: Speci men Type: BLOOD SPECIMENOrdering Facility: [facility] Address: [address] [place] [address] Performed By: #### 5 7021-8 ####[facility] LABCLIA [id number] [place] [address] Lymphocytes/100 WBC (Bld) 24.2 % Normal [facility] Comment on above: Order Comment: Speci men Type: BLOOD SPECIMENOrdering Facility: [facility] Address: [address] [place] [address] Performed By: #### 5 7021-8 ####[facility] LABCLIA [id number] [place] [address] MCH (RBC) [Entitic mass] 33.9 pg Normal 26.0-34.0 [facility] Comment on above: Order Comment: Speci men Type: BLOOD SPECIMENOrdering Facility: [facility] Address: [address] [place] [address] Performed By: #### 5 7021-8 ####[facility] LABIA [id number] [place] [address] MCHC (RBC) [Mass/Vol] 32.8 g/dL Normal 30.5-36.0 [facility] Comment on above: Order Comment: Speci men Type: BLOOD SPECIMENOrdering Facility: [facility] Address: [address] [place] [address] Performed By: #### 5 7021-8 ####[facility] LABCLIA [id number] [place] [address] MCV (RBC) [Entitic vol] 103.2 fL High 80.0-100.0 [facility] Comment on above: Order Comment: Speci men Type: BLOOD SPECIMENOrdering Facility: [facility] Address: [address] [place] [address] Performed By: #### 5 7021-8 ####[facility] LABIA [id number] [place] [address] Monocytes (Bld) [#/Vol] 0.46 10*3/uL Normal <0.87 [facility] Comment on above: Order Comment: Speci men Type: BLOOD SPECIMENOrdering Facility: [facility] Address: [address] [place] [address] Performed By: #### 5 7021-8 ####[facility] LABCLIA [id number] [place] [address] Monocytes/100 WBC (Bld) 7.7 % Normal [facility] Comment on above: Order Comment: Speci men Type: BLOOD SPECIMENOrdering Facility: [facility] Address: [address] [place] [address] Performed By: #### 5 7021-8 ####[facility] LABCLIA [id number] [place] [address] Neutrophils (Bld) [#/Vol] 3.90 10*3/uL Normal 1.45-7.50 [facility] Comment on above: Order Comment: Speci men Type: BLOOD SPECIMENOrdering Facility: [facility] Address: [address] [place] [address] Performed By: #### 5 7021-8 ####[facility] LABCLIA [id number] [place] [address] Neutrophils/100 WBC (Bld) 65.4 % Normal [facility] Comment on above: Order Comment: Speci men Type: BLOOD SPECIMENOrdering Facility: [facility] Address: [address] [place] [address] Performed By: #### 5 7021-8 ####[facility] LABCLIA [id number] [place] [address] Nucleated RBC (Bld) [#/Vol] 10*3/uL Normal <0.01 [facility] Comment on above: Order Comment: Speci men Type: BLOOD SPECIMENOrdering Facility: [facility] Address: [address] [place] [address] Performed By: #### 5 7021-8 ####[facility] LABCLIA [id number] [place] [address] Nucleated RBC/100 WBC (Bld) [Ratio] 0.0 /[address] [facility] Comment on above: Order Comment: Speci men Type: BLOOD SPECIMENOrdering Facility: [facility] Address: [address] [place] [address] Performed By: #### 5 7021-8 ####[facility] LABCLIA [id number] [place] [address] Platelet mean volume (Bld) [Entitic vol] 9.5 fL Normal 9.0-12.7 [facility] Comment on above: Order Comment: Speci men Type: BLOOD SPECIMENOrdering Facility: [facility] Address: [address] [place] [address] Performed By: #### 5 7021-8 ####[facility] LABCLIA [id number] [place] [address] Platelets (Bld) [#/Vol] 231 10*3/uL Normal 150-400 [facility] Comment on above: Order Comment: Speci men Type: BLOOD SPECIMENOrdering Facility: [facility] Address: [address] [place] [address] Performed By: #### 5 7021-8 ####[facility] LABCLIA [id number] [place] [address] RBC (Bld) [#/Vol] 3.10 10*6/uL Low 4.20-6.00 [facility] Comment on above: Order Comment: Speci men Type: BLOOD SPECIMENOrdering Facility: [facility] Address: [address] [place] [address] Performed By: #### 5 7021-8 ####[facility] LABCLIA [id number] [place] [address] WBC (Bld) [#/Vol] 5.96 10*3/uL Normal 3.70-11.00 [facility] Comment on above: Order Comment: Speci men Type: BLOOD SPECIMENOrdering Facility: [facility] Address: [address] [place] [address] Performed By: #### 5 7021-8 ####[facility] LABCLIA [id number] [place] [address] Basophils (Bld) [#/Vol] 0.04 10*3/uL <0.11 k/uL [facility] Basophils/100 WBC (Bld) 0.7 % [facility] Differential cell count method Nom (Bld) Auto [facility] Eosinophils (Bld) [#/Vol] 0.09 10*3/uL <0.46 k/uL [facility] Eosinophils/100 WBC (Bld) 1.5 % [facility] Erythrocyte distribution width (RBC) [Ratio] 17.9 % High 11.5 - 15.0 % [facility] Hematocrit (Bld) [Volume fraction] 32.0 % Low 39.0 - 51.0 % [facility] Hemoglobin (Bld) [Mass/Vol] 10.5 g/dL Low 13.0 - 17.0 g/dL [facility] Immature granulocytes (Bld) [#/Vol] 0.03 10*3/uL <0.10 k/uL [facility] Immature granulocytes/100 WBC (Bld) 0.5 % [facility] Lymphocytes (Bld) [#/Vol] 1.44 10*3/uL 1.00 - 4.00 k/uL [facility] Lymphocytes/100 WBC (Bld) 24.2 % [facility] MCH (RBC) [Entitic mass] 33.9 pg 26.0 - 34.0 pg [facility] MCHC (RBC) [Mass/Vol] 32.8 g/dL 30.5 - 36.0 g/dL [facility] MCV (RBC) [Entitic vol] 103.2 fL High 80.0 - 100.0 fL [facility] Monocytes (Bld) [#/Vol] 0.46 10*3/uL <0.87 k/uL [facility] Monocytes/100 WBC (Bld) 7.7 % [facility] Neutrophils (Bld) [#/Vol] 3.90 10*3/uL 1.45 - 7.50 k/uL [facility] Neutrophils/100 WBC (Bld) 65.4 % [facility] Nucleated RBC (Bld) [#/Vol] <0.01 k/uL [facility] Nucleated RBC/100 WBC (Bld) [Ratio] 0.0 /100 WBC [facility] Platelet mean volume (Bld) [Entitic vol] 9.5 fL 9.0 - 12.7 fL [facility] Platelets (Bld) [#/Vol] 231 10*3/uL 150 - 400 k/uL [facility] RBC (Bld) [#/Vol] 3.10 10*6/uL Low 4.20 - 6.0 0 m/uL [facility] WBC (Bld) [#/Vol] 5.96 10*3/uL 3.70 - 11. 00 k/uL [facility] CNCNPATEDon 07-19-[address] [facility] CNOVSPon 07-19-[address] [facility] Comprehensive metabolic 2000 panelon 07-19-2023 Albumin [Mass/Vol] 3.8 g/dL Low 3.9-4.9 [facility] Comment on above: Order Comment: Speci men Type: BLOOD SPECIMENOrdering Facility: [facility] Address: [address] [place] [address] Performed By: #### 2 4323-8 ####[facility] LABIA [id number] [place] [address] ALP [Catalytic activity/Vol] 136 U/L High 38-113 [facility] Comment on above: Order Comment: Speci men Type: BLOOD SPECIMENOrdering Facility: [facility] Address: [address] [place] [address] Performed By: #### 2 4323-8 ####[facility] LABCLIA [id number] [place] [address] ALT [Catalytic activity/Vol] 29 U/L Normal 10-54 [facility] Comment on above: Order Comment: Speci men Type: BLOOD SPECIMENOrdering Facility: [facility] Address: [facility] [place] [address] Performed By: #### 2 4323-8 ####[facility] LABIA [id number] [place] [address] Anion gap [Moles/Vol] 11 mmol/L Normal 9-18 [facility] Comment on above: Order Comment: Speci men Type: BLOOD SPECIMENOrdering Facility: [facility] Address: [address] [place] [address] Performed By: #### 2 4323-8 ####[facility] LABCLIA [id number] [place] [address] AST [Catalytic activity/Vol] 24 U/L Normal 14-40 [facility] Comment on above: Order Comment: Speci men Type: BLOOD SPECIMENOrdering Facility: [facility] Address: [address] [place] [address] Performed By: #### 2 4323-8 ####[facility] LABCLIA [id number] [place] [address] Bilirubin [Mass/Vol] 1.2 mg/dL Normal 0.2-1.3 [facility] Comment on above: Order Comment: Speci men Type: BLOOD SPECIMENOrdering Facility: [facility] Address: [address] [place] [address] Performed By: #### 2 4323-8 ####[facility] LABCLIA [id number] [place] [address] Calcium [Mass/Vol] 10.7 mg/dL High 8.5-10.2 [facility] Comment on above: Order Comment: Speci men Type: BLOOD SPECIMENOrdering Facility: [facility] Address: [address] [place] [address] Performed By: #### 2 4323-8 ####[facility] LABCLIA [id number] [place] [address] Chloride [Moles/Vol] 106 mmol/L High 97-105 [facility] Comment on above: Order Comment: Speci men Type: BLOOD SPECIMENOrdering Facility: [facility] Address: [address] [place] [address] Performed By: #### 2 4323-8 ####[facility] LABCLIA [id number] [place] [address] CO2 [Moles/Vol] 22 mmol/L Normal 22-30 [facility] Comment on above: Order Comment: Speci men Type: BLOOD SPECIMENOrdering Facility: [facility] Address: [address] [place] [address] Performed By: #### 2 4323-8 ####[facility] LABCLIA [id number] [place] [address] Creatinine [Mass/Vol] 0.83 mg/dL Normal 0.73-1.22 [facility] Comment on above: Order Comment: Speci men Type: BLOOD SPECIMENOrdering Facility: [facility] Address: [address] [place] [address] Performed By: #### 2 4323-8 ####[facility] LABCLIA [id number] [place] [address] Creatinine and Glomerular filtration rate.predicted panel (S/P/Bld) 93 mL/min/1.73m??? Normal >=60 [facility] Comment on above: Order Comment: Speci men Type: BLOOD SPECIMENOrdering Facility: [facility] Address: [address] [place] [address] Result Comment: Kathy mated Glomerular Filtration Rate (eGFR) is calculated using the 2020 CKD-EPI creatinine equation. This equation utilizes serum creatinine, sex, and age as parameters. The creatinine assay has traceable calibration to isotope dilution-mass spectrometry. Refer to KDIGO guidelines for clinical interpretation. In patients with unstable renal function, e.g. those with acute kidney injury, the eGFR may not accurately reflect actual GFR. Performed By: #### 2 4323-8 ####[facility] LABCLIA [id number] [place] [address] Glucose [Mass/Vol] 152 mg/dL High 74-99 [facility] Comment on above: Order Comment: Speci men Type: BLOOD SPECIMENOrdering Facility: [facility] Address: [address] [place], [place] [address] Result Comment: The [place] [employer] (ADA) provides guidance for cutoff values for fasting glucose and random glucose. The ADA defines fasting as no caloric intake for at least 8 hours. Fasting plasma glucose results between 100 to 125 mg/dL indicate increased risk for diabetes (prediabetes).Fasting plasma glucose results greater than or equal to 126 mg/dL meet the criteria for diagnosis of diabetes. In the absence of unequivocal hyperglycemia, results should be confirmed by repeat testing. In a patient with classic symptoms of hyperglycemia or hyperglycemic crisis, random plasma glucose results greater than or equal to 200 mg/dL meet the criteria for diagnosis of diabetes.Reference: Standards of Medical Care in Diabetes 2016, [place] [employer]. Diabetes Care. 2016.39(Suppl 1). Performed By: #### 2 4323-8 ####[facility] LABCLIA [id number] [place] [address] Potassium [Moles/Vol] 3.7 mmol/L Normal 3.7-5.1 [facility] Comment on above: Order Comment: Speci men Type: BLOOD SPECIMENOrdering Facility: [facility] Address: [address] [place] [address] Performed By: #### 2 4323-8 ####[facility] LABCLIA [id number] [place] [address] Protein [Mass/Vol] 6.3 g/dL Normal 6.3-8.0 [facility] Comment on above: Order Comment: Speci men Type: BLOOD SPECIMENOrdering Facility: [facility] Address: [address] [place] [address] Performed By: #### 2 4323-8 ####[facility] LABCLIA [id number] [place] [address] Sodium [Moles/Vol] 139 mmol/L Normal 136-144 [facility] Comment on above: Order Comment: Speci men Type: BLOOD SPECIMENOrdering Facility: [facility] Address: [address] [place] [address] Performed By: #### 2 4323-8 ####[facility] LABCLIA [id number] [place] [address] Urea nitrogen [Mass/Vol] 14 mg/dL Normal 9-24 [facility] Comment on above: Order Comment: Speci men Type: BLOOD SPECIMENOrdering Facility: [facility] Address: [address] [place], [place] [address] Performed By: #### 2 4323-8 ####[facility] LABCLIA [id number] [place] [address] Albumin [Mass/Vol] 3.8 g/dL Low 3.9 - 4.9 g/dL [facility] ALP [Catalytic activity/Vol] 136 U/L High 38 - 113 U/L [facility] ALT [Catalytic activity/Vol] 29 U/L 10 - 54 U/L [facility] Anion gap [Moles/Vol] 11 mmol/L 9 - 18 mmol/L [facility] AST [Catalytic activity/Vol] 24 U/L 14 - 40 U/L [facility] Bilirubin [Mass/Vol] 1.2 mg/dL 0.2 - 1.3 mg/dL [facility] Calcium [Mass/Vol] 10.7 mg/dL High 8.5 - 10. 2 mg/dL [facility] Chloride [Moles/Vol] 106 mmol/L High 97 - 105 mmol/L [facility] CO2 [Moles/Vol] 22 mmol/L 22 - 30 mmol/L [facility] Creatinine [Mass/Vol] 0.83 mg/dL 0.73 - 1.22 mg/dL [facility] Estimated Glomerular Filtration Rate 93 mL/min/1.73m >=60 mL/min/1.73m [facility] Glucose [Mass/Vol] 152 mg/dL High 74 - 99 mg/dL [facility] Potassium [Moles/Vol] 3.7 mmol/L 3.7 - 5.1 mmol/L [facility] Protein [Mass/Vol] 6.3 g/dL 6.3 - 8.0 g/dL [facility] Sodium [Moles/Vol] 139 mmol/L 136 - 144 mmol/L [facility] Urea nitrogen [Mass/Vol] 14 mg/dL 9 - 24 mg/dL [facility] CBC W Auto Differential pane l (Bld)on 02-14-2024 Basophils (Bld) [#/Vol] 0.04 10*3/uL Normal <0.11 [facility] Comment on above: Order Comment: Speci men Type: BLOOD SPECIMENOrdering Facility: [facility] Address: [address] [place] [address] Performed By: #### 5 7021-8 ####[facility] LABCLIA [id number] [place] [address] Basophils/100 WBC (Bld) 0.7 % Normal [facility] Comment on above: Order Comment: Speci men Type: BLOOD SPECIMENOrdering Facility: [facility] Address: [address] [place] [address] Performed By: #### 5 7021-8 ####[facility] LABCLIA [id number] [place] [address] Differential cell count method Nom (Bld) Auto Normal [facility] Comment on above: Order Comment: Speci men Type: BLOOD SPECIMENOrdering Facility: [facility] Address: [address] [place] [address] Performed By: #### 5 7021-8 ####[facility] LABCLIA [id number] [place] [address] Eosinophils (Bld) [#/Vol] 0.12 10*3/uL Normal <0.46 [facility] Comment on above: Order Comment: Speci men Type: BLOOD SPECIMENOrdering Facility: [facility] Address: [address] [place] [address] Performed By: #### 5 7021-8 ####[facility] LABCLIA [id number] [place] [address] Eosinophils/100 WBC (Bld) 2.0 % Normal [facility] Comment on above: Order Comment: Speci men Type: BLOOD SPECIMENOrdering Facility: [facility] Address: [address] [place] [address] Performed By: #### 5 7021-8 ####[facility] LABCLIA [id number] [place] [address] Erythrocyte distribution width (RBC) [Ratio] 17.7 % High 11.5-15.0 [facility] Comment on above: Order Comment: Speci men Type: BLOOD SPECIMENOrdering Facility: [facility] Address: [address] [place] [address] Performed By: #### 5 7021-8 ####[facility] LABCLIA [id number] [place] [address] Hematocrit (Bld) [Volume fraction] 32.0 % Low 39.0-51.0 [facility] Comment on above: Order Comment: Speci men Type: BLOOD SPECIMENOrdering Facility: [facility] Address: [address] [place] [address] Performed By: #### 5 7021-8 ####[facility] LABCLIA [id number] [place] [address] Hemoglobin (Bld) [Mass/Vol] 10.6 g/dL Low 13.0-17.0 [facility] Comment on above: Order Comment: Speci men Type: BLOOD SPECIMENOrdering Facility: [facility] Address: [address] [place] [address] Performed By: #### 5 7021-8 ####[facility] LABCLIA [id number] [place] [address] Immature granulocytes (Bld) [#/Vol] 10*3/uL Normal <0.10 [facility] Comment on above: Order Comment: Speci men Type: BLOOD SPECIMENOrdering Facility: [facility] Address: [address] [place] [address] Performed By: #### 5 7021-8 ####[facility] LABCLIA [id number] [place] [address] Immature granulocytes/100 WBC (Bld) 0.3 % Normal [facility] Comment on above: Order Comment: Speci men Type: BLOOD SPECIMENOrdering Facility: [facility] Address: [address] [place] [address] Performed By: #### 5 7021-8 ####[facility] LABCLIA [id number] [place] [address] Lymphocytes (Bld) [#/Vol] 1.27 10*3/uL Normal 1.00-4.00 [facility] Comment on above: Order Comment: Speci men Type: BLOOD SPECIMENOrdering Facility: [facility] Address: [address] [place] [address] Performed By: #### 5 7021-8 ####[facility] LABCLIA [id number] [place] [address] Lymphocytes/100 WBC (Bld) 21.5 % Normal [facility] Comment on above: Order Comment: Speci men Type: BLOOD SPECIMENOrdering Facility: [facility] Address: [address] [place] [address] Performed By: #### 5 7021-8 ####[facility] LABCLIA [id number] [place] [address] MCH (RBC) [Entitic mass] 33.9 pg Normal 26.0-34.0 [facility] Comment on above: Order Comment: Speci men Type: BLOOD SPECIMENOrdering Facility: [facility] Address: [address] [place] [address] Performed By: #### 5 7021-8 ####[facility] LABCLIA [id number] [place] [address] MCHC (RBC) [Mass/Vol] 33.1 g/dL Normal 30.5-36.0 [facility] Comment on above: Order Comment: Speci men Type: BLOOD SPECIMENOrdering Facility: [facility] Address: [address] [place] [address] Performed By: #### 5 7021-8 ####[facility] LABCLIA [id number] [place] [address] MCV (RBC) [Entitic vol] 102.2 fL High 80.0-100.0 [facility] Comment on above: Order Comment: Speci men Type: BLOOD SPECIMENOrdering Facility: [facility] Address: [address] [place] [address] Performed By: #### 5 7021-8 ####[facility] LABCLIA [id number] [place] [address] Monocytes (Bld) [#/Vol] 0.41 10*3/uL Normal <0.87 [facility] Comment on above: Order Comment: Speci men Type: BLOOD SPECIMENOrdering Facility: [facility] Address: [address] [place] [address] Performed By: #### 5 7021-8 ####[facility] LABCLIA [id number] [place] [address] Monocytes/100 WBC (Bld) 6.9 % Normal [facility] Comment on above: Order Comment: Speci men Type: BLOOD SPECIMENOrdering Facility: [facility] Address: [address] [place] [address] Performed By: #### 5 7021-8 ####[facility] LABCLIA [id number] [place] [address] Neutrophils (Bld) [#/Vol] 4.04 10*3/uL Normal 1.45-7.50 [facility] Comment on above: Order Comment: Speci men Type: BLOOD SPECIMENOrdering Facility: [facility] Address: [address] [place] [address] Performed By: #### 5 7021-8 ####[facility] LABCLIA [id number] [place] [address] Neutrophils/100 WBC (Bld) 68.6 % Normal [facility] Comment on above: Order Comment: Speci men Type: BLOOD SPECIMENOrdering Facility: [facility] Address: [address] [place] [address] Performed By: #### 5 7021-8 ####[facility] LABCLIA [id number] [place] [address] Nucleated RBC (Bld) [#/Vol] 10*3/uL Normal <0.01 [facility] Comment on above: Order Comment: Speci men Type: BLOOD SPECIMENOrdering Facility: [facility] Address: [address] [place] [address] Performed By: #### 5 7021-8 ####[facility] LABCLIA [id number] [place] [address] Nucleated RBC/100 WBC (Bld) [Ratio] 0.0 /[address] [facility] Comment on above: Order Comment: Speci men Type: BLOOD SPECIMENOrdering Facility: [facility] Address: [address] [place] [address] Performed By: #### 5 7021-8 ####[facility] LABCLIA [id number] [place] [address] Platelet mean volume (Bld) [Entitic vol] 9.4 fL Normal 9.0-12.7 [facility] Comment on above: Order Comment: Speci men Type: BLOOD SPECIMENOrdering Facility: [facility] Address: [address] [place] [address] Performed By: #### 5 7021-8 ####[facility] LABCLIA [id number] [place] [address] Platelets (Bld) [#/Vol] 211 10*3/uL Normal 150-400 [facility] Comment on above: Order Comment: Speci men Type: BLOOD SPECIMENOrdering Facility: [facility] Address: [address] [place] [address] Performed By: #### 5 7021-8 ####[facility] LABCLIA [id number] [place] [address] RBC (Bld) [#/Vol] 3.13 10*6/uL Low 4.20-6.00 [facility] Comment on above: Order Comment: Speci men Type: BLOOD SPECIMENOrdering Facility: [facility] Address: [address] [place] [address] Performed By: #### 5 7021-8 ####[facility] LABCLIA [id number] [place] [address] WBC (Bld) [#/Vol] 5.90 10*3/uL Normal 3.70-11.00 [facility] Comment on above: Order Comment: Speci men Type: BLOOD SPECIMENOrdering Facility: [facility] Address: [address] [place] [address] Performed By: #### 5 7021-8 ####[facility] LABCLIA [id number] [place] [address] Basophils (Bld) [#/Vol] 0.04 10*3/uL <0.11 k/uL [facility] Differential cell count method Nom (Bld) Auto [facility] Eosinophils (Bld) [#/Vol] 0.12 10*3/uL <0.46 k/uL [facility] Immature granulocytes (Bld) [#/Vol] <0.10 k/uL [facility] Immature granulocytes/100 WBC (Bld) 0.3 % [facility] Lymphocytes (Bld) [#/Vol] 1.27 10*3/uL 1.00 - 4.00 k/uL [facility] Monocytes (Bld) [#/Vol] 0.41 10*3/uL <0.87 k/uL [facility] Neutrophils (Bld) [#/Vol] 4.04 10*3/uL 1.45 - 7.50 k/uL [facility] Nucleated RBC (Bld) [#/Vol] <0.01 k/uL [facility] Nucleated RBC/100 WBC (Bld) [Ratio] 0.0 /100 WBC [facility] Platelet mean volume (Bld) [Entitic vol] 9.4 fL 9.0 - 12.7 fL [facility] Platelets (Bld) [#/Vol] 211 10*3/uL 150 - 400 k/uL [facility] WBC (Bld) [#/Vol] 5.90 10*3/uL 3.70 - 11. 00 k/uL [facility] CBC W AUTO DIFF BLDon [facility] BASOPHILS # BLD AUTO 0.04 [facility] DIFFERENTIAL METHOD BLD Auto [facility] EOSINOPHIL # BLD AUTO 0.12 [facility] LYMPHOCYTES # BLD AUTO 1.27 [facility] MONOCYTES # BLD AUTO 0.41 [facility] NEUTROPHILS # BLD AUTO 4.04 [facility] NRBC # BLD AUTO <0.01 [facility] NRBC/100 WBC BLD-RTO 0.0 /100 WBC [facility] PLATELET # BLD AUTO 211 [facility] PMV BLD AUTO 9.4 fL 9.0 - 12.7 fL [facility] WBC # BLD AUTO 5.90 [facility] IMM GRANULOCYTES # BLD AUTO <0.03 [facility] IMM GRANULOCYTES/LEUK NFR BLD AUTO 0.3 % [facility] Interpretation and review of laboratory results Abnormal [facility] Specimen Type: BLOOD SPECIMEN [facility] Address: [address] [place] [address] Original Ordering Provider: GRACE NEWBY [facility] CNOVSPon 07-05-[address] [facility] Cancer Ag19-9 SerPl-aCncon 0 07-05-2023 Cancer Ag 19-9 Qn 1918.0 [arb'U]/mL High <36.0 [facility] Comment on above: Order Comment: Speci men Type: BLOOD SPECIMENOrdering Facility: [facility] Address: [address] [place] [address] Result Comment: [facility] er antigen 19-9 test is used as an aid in monitoring response to treatment or recurrence in patients with established pancreatic, hepatobiliary, or gastrointestinal malignancies. Clinical correlation is required.The CA 19-9 Antigen test was performed using the [employer] DXI paramagnetic particle chemiluminescent immunoassay method. Results obtained with different assay methods or kits cannot be used interchangeably. Performed By: #### 2 4108-3 ####[facility] LABCLIA [id number] MEERAMaribel [facility] [id number] [id number] [place] Comprehensive metabolic 2000 panelon 07-05-2023 Albumin [Mass/Vol] 3.8 g/dL Low 3.9-4.9 [facility] Comment on above: Order Comment: Speci men Type: BLOOD SPECIMENOrdering Facility: [facility] Address: [address] [place] [address] Performed By: #### 2 4323-8 ####[facility] LABCLIA [id number] [place] [address] ALP [Catalytic activity/Vol] 128 U/L High 38-113 [facility] Comment on above: Order Comment: Speci men Type: BLOOD SPECIMENOrdering Facility: [facility] Address: [address] [place] [address] Performed By: #### 2 4323-8 ####[facility] LABIA [id number] [place] [address] ALT [Catalytic activity/Vol] 24 U/L Normal 10-54 [facility] Comment on above: Order Comment: Speci men Type: BLOOD SPECIMENOrdering Facility: [facility] Address: [address] [place] [address] Performed By: #### 2 4323-8 ####[facility] LABIA [id number] [place] [address] Anion gap [Moles/Vol] 10 mmol/L Normal 9-18 [facility] Comment on above: Order Comment: Speci men Type: BLOOD SPECIMENOrdering Facility: [facility] Address: [address] [place] [address] Performed By: #### 2 4323-8 ####[facility] LABIA [id number] [place] [address] AST [Catalytic activity/Vol] 14 U/L Normal 14-40 [facility] Comment on above: Order Comment: Speci men Type: BLOOD SPECIMENOrdering Facility: [facility] Address: [address] [place] [address] Performed By: #### 2 4323-8 ####[facility] LABCLIA [id number] [place] [address] Bilirubin [Mass/Vol] 1.3 mg/dL Normal 0.2-1.3 [facility] Comment on above: Order Comment: Speci men Type: BLOOD SPECIMENOrdering Facility: [facility] Address: [address] [place] [address] Performed By: #### 2 4323-8 ####[facility] LABCLIA [id number] [place] [address] Calcium [Mass/Vol] 10.3 mg/dL High 8.5-10.2 [facility] Comment on above: Order Comment: Speci men Type: BLOOD SPECIMENOrdering Facility: [facility] Address: [address] [place] [address] Performed By: #### 2 4323-8 ####[facility] LABCLIA [id number] [place] [address] Chloride [Moles/Vol] 106 mmol/L High 97-105 [facility] Comment on above: Order Comment: Speci men Type: BLOOD SPECIMENOrdering Facility: [facility] Address: [address] [place] [address] Performed By: #### 2 4323-8 ####[facility] LABCLIA [id number] [place] [address] CO2 [Moles/Vol] 23 mmol/L Normal 22-30 [facility] Comment on above: Order Comment: Speci men Type: BLOOD SPECIMENOrdering Facility: [facility] Address: [address] [place] [address] Performed By: #### 2 4323-8 ####[facility] LABCLIA [id number] [place] [address] Creatinine [Mass/Vol] 0.85 mg/dL Normal 0.73-1.22 [facility] Comment on above: Order Comment: Noemí hoff Type: BLOOD SPECIMENOrdering Facility: [facility] Address: [address] [place], [place] [address] Performed By: #### 2 4323-8 ####[facility] LABCLIA [id number] [place] [address] Creatinine and Glomerular filtration rate.predicted panel (S/P/Bld) 92 mL/min/1.73m??? Normal >=60 [facility] Comment on above: Order Comment: Speci men Type: BLOOD SPECIMENOrdering Facility: [facility] Address: [address] [place] [address] Result Comment: Kathy mated Glomerular Filtration Rate (eGFR) is calculated using the 2020 CKD-EPI creatinine equation. This equation utilizes serum creatinine, sex, and age as parameters. The creatinine assay has traceable calibration to isotope dilution-mass spectrometry. Refer to KDIGO guidelines for clinical interpretation. In patients with unstable renal function, e.g. those with acute kidney injury, the eGFR may not accurately reflect actual GFR. Performed By: #### 2 4323-8 ####[facility] LABCLIA [id number] [place] [address] Glucose [Mass/Vol] 164 mg/dL High 74-99 [facility] Comment on above: Order Comment: Noemí luis eduardo Type: BLOOD SPECIMENOrdering Facility: [facility] Address: [address] [place], [place] [address] Result Comment: The [place] [employer] (ADA) provides guidance for cutoff values for fasting glucose and random glucose. The ADA defines fasting as no caloric intake for at least 8 hours. Fasting plasma glucose results between 100 to 125 mg/dL indicate increased risk for diabetes (prediabetes).Fasting plasma glucose results greater than or equal to 126 mg/dL meet the criteria for diagnosis of diabetes. In the absence of unequivocal hyperglycemia, results should be confirmed by repeat testing. In a patient with classic symptoms of hyperglycemia or hyperglycemic crisis, random plasma glucose results greater than or equal to 200 mg/dL meet the criteria for diagnosis of diabetes.Reference: Standards of Medical Care in Diabetes 2016, [place] [employer]. Diabetes Care. 2016.39(Suppl 1). Performed By: #### 2 4323-8 ####[facility] LABCLIA [id number] [place] [address] Potassium [Moles/Vol] 3.6 mmol/L Low 3.7-5.1 [facility] Comment on above: Order Comment: Speci men Type: BLOOD SPECIMENOrdering Facility: [facility] Address: [address] [place] [address] Performed By: #### 2 4323-8 ####[facility] LABCLIA [id number] [place] [address] Protein [Mass/Vol] 6.3 g/dL Normal 6.3-8.0 [facility] Comment on above: Order Comment: Speci men Type: BLOOD SPECIMENOrdering Facility: [facility] Address: [address] [place] [address] Performed By: #### 2 4323-8 ####[facility] LABCLIA [id number] [place] [address] Sodium [Moles/Vol] 139 mmol/L Normal 136-144 [facility] Comment on above: Order Comment: Speci men Type: BLOOD SPECIMENOrdering Facility: [facility] Address: [address] [place] [address] Performed By: #### 2 4323-8 ####[facility] LABCLIA [id number] [place] [address] Urea nitrogen [Mass/Vol] 19 mg/dL Normal 9-24 [facility] Comment on above: Order Comment: Speci men Type: BLOOD SPECIMENOrdering Facility: [facility] Address: [address] [place] [address] Performed By: #### 2 4323-8 ####[facility] LABCLIA [id number] [place] [address] Albumin [Mass/Vol] 3.8 g/dL Low 3.9 - 4.9 g/dL [facility] ALP [Catalytic activity/Vol] 128 U/L High 38 - 113 U/L [facility] ALT [Catalytic activity/Vol] 24 U/L 10 - 54 U/L [facility] Anion gap [Moles/Vol] 10 mmol/L 9 - 18 mmol/L [facility] AST [Catalytic activity/Vol] 14 U/L 14 - 40 U/L [facility] Bilirubin [Mass/Vol] 1.3 mg/dL 0.2 - 1.3 mg/dL [facility] Calcium [Mass/Vol] 10.3 mg/dL High 8.5 - 10. 2 mg/dL [facility] Chloride [Moles/Vol] 106 mmol/L High 97 - 105 mmol/L [facility] CO2 [Moles/Vol] 23 mmol/L 22 - 30 mmol/L [facility] Creatinine [Mass/Vol] 0.85 mg/dL 0.73 - 1.22 mg/dL [facility] Estimated Glomerular Filtration Rate 92 mL/min/1.73m >=60 mL/min/1.73m [facility] Glucose [Mass/Vol] 164 mg/dL High 74 - 99 mg/dL [facility] Potassium [Moles/Vol] 3.6 mmol/L Low 3.7 - 5.1 mmol/L [facility] Protein [Mass/Vol] 6.3 g/dL 6.3 - 8.0 g/dL [facility] Sodium [Moles/Vol] 139 mmol/L 136 - 144 mmol/L [facility] Urea nitrogen [Mass/Vol] 19 mg/dL 9 - 24 mg/dL [facility] Laboratory - Hematology and Cell countson 07-05-2023 Basophils/100 WBC (Bld) 0.7 % [facility] Eosinophils/100 WBC (Bld) 2.0 % [facility] Erythrocyte distribution width (RBC) [Ratio] 17.7 % High 11.5 - 15.0 % [facility] Hematocrit (Bld) [Volume fraction] 32.0 % Low 39.0 - 51.0 % [facility] Hemoglobin (Bld) [Mass/Vol] 10.6 g/dL Low 13.0 - 17.0 g/dL [facility] Lymphocytes/100 WBC (Bld) 21.5 % [facility] MCH (RBC) [Entitic mass] 33.9 pg 26.0 - 34.0 pg [facility] MCHC (RBC) [Mass/Vol] 33.1 g/dL 30.5 - 36.0 g/dL [facility] MCV (RBC) [Entitic vol] 102.2 fL High 80.0 - 100.0 fL [facility] Monocytes/100 WBC (Bld) 6.9 % [facility] Neutrophils/100 WBC (Bld) 68.6 % [facility] RBC (Bld) [#/Vol] 3.13 10*6/uL Low 4.20 - 6.0 0 m/uL [facility] CNPNon 06-23-[address] [facility] CBC W Auto Differential pane l (Bld)on 06-21-2023 Basophils (Bld) [#/Vol] 0.03 10*3/uL Normal <0.11 [facility] Comment on above: Order Comment: Speci men Type: BLOOD SPECIMENOrdering Facility: [facility] Address: [address] [place] [address] Performed By: #### 5 7021-8 ####[facility] LABCLIA [id number] [place] [address] Basophils/100 WBC (Bld) 0.4 % Normal [facility] Comment on above: Order Comment: Speci men Type: BLOOD SPECIMENOrdering Facility: [facility] Address: [address] [place] [address] Performed By: #### 5 7021-8 ####[facility] LABCLIA [id number] [place] [address] Differential cell count method Nom (Bld) Auto Normal [facility] Comment on above: Order Comment: Speci men Type: BLOOD SPECIMENOrdering Facility: [facility] Address: [address] [place] [address] Performed By: #### 5 7021-8 ####[facility] LABCLIA [id number] [place] [address] Eosinophils (Bld) [#/Vol] 0.07 10*3/uL Normal <0.46 [facility] Comment on above: Order Comment: Speci men Type: BLOOD SPECIMENOrdering Facility: [facility] Address: [address] [place] [address] Performed By: #### 5 7021-8 ####[facility] LABCLIA [id number] [place] [address] Eosinophils/100 WBC (Bld) 0.9 % Normal [facility] Comment on above: Order Comment: Speci men Type: BLOOD SPECIMENOrdering Facility: [facility] Address: [address] [place] [address] Performed By: #### 5 7021-8 ####[facility] LABCLIA [id number] [place] [address] Erythrocyte distribution width (RBC) [Ratio] 16.7 % High 11.5-15.0 [facility] Comment on above: Order Comment: Speci men Type: BLOOD SPECIMENOrdering Facility: [facility] Address: [address] [place] [address] Performed By: #### 5 7021-8 ####[facility] LABCLIA [id number] [place] [address] Hematocrit (Bld) [Volume fraction] 29.9 % Low 39.0-51.0 [facility] Comment on above: Order Comment: Speci men Type: BLOOD SPECIMENOrdering Facility: [facility] Address: [address] [place] [address] Performed By: #### 5 7021-8 ####[facility] LABCLIA [id number] [place] [address] Hemoglobin (Bld) [Mass/Vol] 10.1 g/dL Low 13.0-17.0 [facility] Comment on above: Order Comment: Speci men Type: BLOOD SPECIMENOrdering Facility: [facility] Address: [address] [place] [address] Performed By: #### 5 7021-8 ####[facility] LABCLIA [id number] [place] [address] Immature granulocytes (Bld) [#/Vol] 0.03 10*3/uL Normal <0.10 [facility] Comment on above: Order Comment: Speci men Type: BLOOD SPECIMENOrdering Facility: [facility] Address: [address] [place] [address] Performed By: #### 5 7021-8 ####[facility] LABCLIA [id number] [place] [address] Immature granulocytes/100 WBC (Bld) 0.4 % Normal [facility] Comment on above: Order Comment: Speci men Type: BLOOD SPECIMENOrdering Facility: [facility] Address: [address] [place] [address] Performed By: #### 5 7021-8 ####[facility] LABCLIA [id number] [place] [address] Lymphocytes (Bld) [#/Vol] 1.48 10*3/uL Normal 1.00-4.00 [facility] Comment on above: Order Comment: Speci men Type: BLOOD SPECIMENOrdering Facility: [facility] Address: [address] [place] [address] Performed By: #### 5 7021-8 ####[facility] LABCLIA [id number] [place] [address] Lymphocytes/100 WBC (Bld) 20.0 % Normal [facility] Comment on above: Order Comment: Speci men Type: BLOOD SPECIMENOrdering Facility: [facility] Address: [address] [place] [address] Performed By: #### 5 7021-8 ####[facility] LABCLIA [id number] [place] [address] MCH (RBC) [Entitic mass] 34.0 pg Normal 26.0-34.0 [facility] Comment on above: Order Comment: Speci men Type: BLOOD SPECIMENOrdering Facility: [facility] Address: [address] [place] [address] Performed By: #### 5 7021-8 ####[facility] LABCLIA [id number] [place] [address] MCHC (RBC) [Mass/Vol] 33.8 g/dL Normal 30.5-36.0 [facility] Comment on above: Order Comment: Speci men Type: BLOOD SPECIMENOrdering Facility: [facility] Address: [address] [place] [address] Performed By: #### 5 7021-8 ####[facility] LABCLIA [id number] [place] [address] MCV (RBC) [Entitic vol] 100.7 fL High 80.0-100.0 [facility] Comment on above: Order Comment: Speci men Type: BLOOD SPECIMENOrdering Facility: [facility] Address: [address] [place] [address] Performed By: #### 5 7021-8 ####[facility] LABCLIA [id number] [place] [address] Monocytes (Bld) [#/Vol] 0.38 10*3/uL Normal <0.87 [facility] Comment on above: Order Comment: Speci men Type: BLOOD SPECIMENOrdering Facility: [facility] Address: [address] [place] [address] Performed By: #### 5 7021-8 ####[facility] LABCLIA [id number] [place] [address] Monocytes/100 WBC (Bld) 5.1 % Normal [facility] Comment on above: Order Comment: Speci men Type: BLOOD SPECIMENOrdering Facility: [facility] Address: [address] [place] [address] Performed By: #### 5 7021-8 ####[facility] LABCLIA [id number] [place] [address] Neutrophils (Bld) [#/Vol] 5.41 10*3/uL Normal 1.45-7.50 [facility] Comment on above: Order Comment: Speci men Type: BLOOD SPECIMENOrdering Facility: [facility] Address: [address] [place] [address] Performed By: #### 5 7021-8 ####[facility] LABCLIA [id number] [place] [address] Neutrophils/100 WBC (Bld) 73.2 % Normal [facility] Comment on above: Order Comment: Speci men Type: BLOOD SPECIMENOrdering Facility: [facility] Address: [address] [place] [address] Performed By: #### 5 7021-8 ####[facility] LABCLIA [id number] [place] [address] Nucleated RBC (Bld) [#/Vol] 10*3/uL Normal <0.01 [facility] Comment on above: Order Comment: Speci men Type: BLOOD SPECIMENOrdering Facility: [facility] Address: [address] [place] [address] Performed By: #### 5 7021-8 ####[facility] LABCLIA [id number] [place] [address] Nucleated RBC/100 WBC (Bld) [Ratio] 0.0 /[address] [facility] Comment on above: Order Comment: Speci men Type: BLOOD SPECIMENOrdering Facility: [facility] Address: [address] [place] [address] Performed By: #### 5 7021-8 ####[facility] LABCLIA [id number] [place] [address] Platelet mean volume (Bld) [Entitic vol] 9.0 fL Normal 9.0-12.7 [facility] Comment on above: Order Comment: Speci men Type: BLOOD SPECIMENOrdering Facility: [facility] Address: [address] [place] [address] Performed By: #### 5 7021-8 ####[facility] LABCLIA [id number] [place] [address] Platelets (Bld) [#/Vol] 258 10*3/uL Normal 150-400 [facility] Comment on above: Order Comment: Speci men Type: BLOOD SPECIMENOrdering Facility: [facility] Address: [address] [place] [address] Performed By: #### 5 7021-8 ####[facility] LABIA [id number] [place] [address] RBC (Bld) [#/Vol] 2.97 10*6/uL Low 4.20-6.00 [facility] Comment on above: Order Comment: Speci men Type: BLOOD SPECIMENOrdering Facility: [facility] Address: [address] [place] [address] Performed By: #### 5 7021-8 ####[facility] LABIA [id number] [place] [address] WBC (Bld) [#/Vol] 7.40 10*3/uL Normal 3.70-11.00 [facility] Comment on above: Order Comment: Speci men Type: BLOOD SPECIMENOrdering Facility: [facility] Address: [address] [place] [address] Performed By: #### 5 7021-8 ####[facility] LABIA [id number] [place] [address] CNCNPATEDon 06-21-[address] [facility] CNOVSPon 06-21-[address] [facility] Comprehensive metabolic 2000 panelon 06-21-2023 Albumin [Mass/Vol] 3.8 g/dL Low 3.9-4.9 [facility] Comment on above: Order Comment: Speci men Type: BLOOD SPECIMENOrdering Facility: [facility] Address: [address] [place] [address] Performed By: #### 2 4323-8 ####[facility] LABCLIA [id number] [place] [address] ALP [Catalytic activity/Vol] 121 U/L High 38-113 [facility] Comment on above: Order Comment: Speci men Type: BLOOD SPECIMENOrdering Facility: [facility] Address: [address] [place] [address] Performed By: #### 2 4323-8 ####[facility] LABCLIA [id number] [place] [address] ALT [Catalytic activity/Vol] 16 U/L Normal 10-54 [facility] Comment on above: Order Comment: Speci men Type: BLOOD SPECIMENOrdering Facility: [facility] Address: [address] [place] [address] Performed By: #### 2 4323-8 ####[facility] LABCLIA [id number] [place] [address] Anion gap [Moles/Vol] 9 mmol/L Normal 9-18 [facility] Comment on above: Order Comment: Speci men Type: BLOOD SPECIMENOrdering Facility: [facility] Address: [address] [place] [address] Performed By: #### 2 4323-8 ####[facility] LABCLIA [id number] [place] [address] AST [Catalytic activity/Vol] 15 U/L Normal 14-40 [facility] Comment on above: Order Comment: Speci men Type: BLOOD SPECIMENOrdering Facility: [facility] Address: [address] [place] [address] Performed By: #### 2 4323-8 ####[facility] LABCLIA [id number] [place] [address] Bilirubin [Mass/Vol] 1.2 mg/dL Normal 0.2-1.3 [facility] Comment on above: Order Comment: Speci men Type: BLOOD SPECIMENOrdering Facility: [facility] Address: [address] [place] [address] Performed By: #### 2 4323-8 ####[facility] LABCLIA [id number] [place] [address] Calcium [Mass/Vol] 10.2 mg/dL Normal 8.5-10.2 [facility] Comment on above: Order Comment: Speci men Type: BLOOD SPECIMENOrdering Facility: [facility] Address: [address] [place] [address] Performed By: #### 2 4323-8 ####[facility] LABCLIA [id number] [place] [address] Chloride [Moles/Vol] 107 mmol/L High 97-105 [facility] Comment on above: Order Comment: Speci men Type: BLOOD SPECIMENOrdering Facility: [facility] Address: [address] [place] [address] Performed By: #### 2 4323-8 ####[facility] LABCLIA [id number] [place] [address] CO2 [Moles/Vol] 23 mmol/L Normal 22-30 [facility] Comment on above: Order Comment: Speci men Type: BLOOD SPECIMENOrdering Facility: [facility] Address: [address] [place] [address] Performed By: #### 2 4323-8 ####[facility] LABCLIA [id number] [place] [address] Creatinine [Mass/Vol] 0.75 mg/dL Normal 0.73-1.22 [facility] Comment on above: Order Comment: Speci men Type: BLOOD SPECIMENOrdering Facility: [facility] Address: [address] [place] [address] Performed By: #### 2 4323-8 ####[facility] LABCLIA [id number] [place] [address] Creatinine and Glomerular filtration rate.predicted panel (S/P/Bld) 96 mL/min/1.73m??? Normal >=60 [facility] Comment on above: Order Comment: Speci men Type: BLOOD SPECIMENOrdering Facility: [facility] Address: [address] [id number] Result Comment: Kathy mated Glomerular Filtration Rate (eGFR) is calculated using the 2020 CKD-EPI creatinine equation. This equation utilizes serum creatinine, sex, and age as parameters. The creatinine assay has traceable calibration to isotope dilution-mass spectrometry. Refer to KDIGO guidelines for clinical interpretation. In patients with unstable renal function, e.g. those with acute kidney injury, the eGFR may not accurately reflect actual GFR. Performed By: #### 2 4323-8 ####[facility] LABCLIA [id number] [place] [address] Glucose [Mass/Vol] 156 mg/dL High 74-99 [facility] Comment on above: Order Comment: Noemí hoff Type: BLOOD SPECIMENOrdering Facility: [facility] Address: [address] [place] [address] Result Comment: The [place] [employer] (ADA) provides guidance for cutoff values for fasting glucose and random glucose. The ADA defines fasting as no caloric intake for at least 8 hours. Fasting plasma glucose results between 100 to 125 mg/dL indicate increased risk for diabetes (prediabetes).Fasting plasma glucose results greater than or equal to 126 mg/dL meet the criteria for diagnosis of diabetes. In the absence of unequivocal hyperglycemia, results should be confirmed by repeat testing. In a patient with classic symptoms of hyperglycemia or hyperglycemic crisis, random plasma glucose results greater than or equal to 200 mg/dL meet the criteria for diagnosis of diabetes.Reference: Standards of Medical Care in Diabetes 2016, [place] [employer]. Diabetes Care. 2016.39(Suppl 1). Performed By: #### 2 4323-8 ####[facility] LABCLIA [id number] [place] [address] Potassium [Moles/Vol] 3.6 mmol/L Low 3.7-5.1 [facility] Comment on above: Order Comment: Noemí hoff Type: BLOOD SPECIMENOrdering Facility: [facility] Address: [address] [id number] Performed By: #### 2 4323-8 ####[facility] LABCLIA [id number] [place] [address] Protein [Mass/Vol] 6.1 g/dL Low 6.3-8.0 [facility] Comment on above: Order Comment: Speci men Type: BLOOD SPECIMENOrdering Facility: [facility] Address: [address] [place] [address] Performed By: #### 2 4323-8 ####[facility] LABCLIA [id number] [place] [address] Sodium [Moles/Vol] 139 mmol/L Normal 136-144 [facility] Comment on above: Order Comment: Speci men Type: BLOOD SPECIMENOrdering Facility: [facility] Address: [address] [place] [address] Performed By: #### 2 4323-8 ####[facility] LABCLIA [id number] [place] [address] Urea nitrogen [Mass/Vol] 13 mg/dL Normal 9-24 [facility] Comment on above: Order Comment: Speci men Type: BLOOD SPECIMENOrdering Facility: [facility] Address: [address] [place] [address] Performed By: #### 2 4323-8 ####[facility] LABCLIA [id number] [place] [address] CNPNon 06-12-[address] [facility] CNPNon 06-08-[address] [facility] CBC W Auto Differential pane l (Bld)on 06-07-2023 Basophils (Bld) [#/Vol] 0.04 10*3/uL Normal <0.11 [facility] Comment on above: Order Comment: Speci men Type: BLOOD SPECIMENOrdering Facility: [facility] Address: [address] [place] [address] Performed By: #### 5 7021-8 ####[facility] LABCLIA [id number] [place] [address] Basophils/100 WBC (Bld) 0.4 % Normal [facility] Comment on above: Order Comment: Speci men Type: BLOOD SPECIMENOrdering Facility: [facility] Address: [address] [place] [address] Performed By: #### 5 7021-8 ####[facility] LABCLIA [id number] [place] [address] Differential cell count method Nom (Bld) Auto Normal [facility] Comment on above: Order Comment: Speci men Type: BLOOD SPECIMENOrdering Facility: [facility] Address: [address] [place] [address] Performed By: #### 5 7021-8 ####[facility] LABCLIA [id number] [place] [address] Eosinophils (Bld) [#/Vol] 10*3/uL Normal <0.46 [facility] Comment on above: Order Comment: Speci men Type: BLOOD SPECIMENOrdering Facility: [facility] Address: [address] [place] [address] Performed By: #### 5 7021-8 ####[facility] LABCLIA [id number] [place] [address] Eosinophils/100 WBC (Bld) 0.1 % Normal [facility] Comment on above: Order Comment: Speci men Type: BLOOD SPECIMENOrdering Facility: [facility] Address: [address] [place] [address] Performed By: #### 5 7021-8 ####[facility] LABCLIA [id number] [place] [address] Erythrocyte distribution width (RBC) [Ratio] 15.4 % High 11.5-15.0 [facility] Comment on above: Order Comment: Speci men Type: BLOOD SPECIMENOrdering Facility: [facility] Address: [address] [place] [address] Performed By: #### 5 7021-8 ####[facility] LABCLIA [id number] [place] [address] Hematocrit (Bld) [Volume fraction] 35.8 % Low 39.0-51.0 [facility] Comment on above: Order Comment: Speci men Type: BLOOD SPECIMENOrdering Facility: [facility] Address: [address] [place] [address] Performed By: #### 5 7021-8 ####[facility] LABCLIA [id number] [place] [address] Hemoglobin (Bld) [Mass/Vol] 11.7 g/dL Low 13.0-17.0 [facility] Comment on above: Order Comment: Speci men Type: BLOOD SPECIMENOrdering Facility: [facility] Address: [address] [place] [address] Performed By: #### 5 7021-8 ####[facility] LABIA [id number] [place] [address] Immature granulocytes (Bld) [#/Vol] 0.04 10*3/uL Normal <0.10 [facility] Comment on above: Order Comment: Speci men Type: BLOOD SPECIMENOrdering Facility: [facility] Address: [address] [place] [address] Performed By: #### 5 7021-8 ####[facility] LABCLIA [id number] [place] [address] Immature granulocytes/100 WBC (Bld) 0.4 % Normal [facility] Comment on above: Order Comment: Speci men Type: BLOOD SPECIMENOrdering Facility: [facility] Address: [address] [place] [address] Performed By: #### 5 7021-8 ####[facility] LABIA [id number] [place] [address] Lymphocytes (Bld) [#/Vol] 1.39 10*3/uL Normal 1.00-4.00 [facility] Comment on above: Order Comment: Speci men Type: BLOOD SPECIMENOrdering Facility: [facility] Address: [address] [place] [address] Performed By: #### 5 7021-8 ####[facility] LABCLIA [id number] [place] [address] Lymphocytes/100 WBC (Bld) 12.4 % Normal [facility] Comment on above: Order Comment: Speci men Type: BLOOD SPECIMENOrdering Facility: [facility] Address: [address] [place] [address] Performed By: #### 5 7021-8 ####[facility] LABCLIA [id number] [place] [address] MCH (RBC) [Entitic mass] 33.0 pg Normal 26.0-34.0 [facility] Comment on above: Order Comment: Speci men Type: BLOOD SPECIMENOrdering Facility: [facility] Address: [address] [place] [address] Performed By: #### 5 7021-8 ####[facility] LABCLIA [id number] [place] [address] MCHC (RBC) [Mass/Vol] 32.7 g/dL Normal 30.5-36.0 [facility] Comment on above: Order Comment: Speci men Type: BLOOD SPECIMENOrdering Facility: [facility] Address: [address] [place] [address] Performed By: #### 5 7021-8 ####[facility] LABCLIA [id number] [place] [address] MCV (RBC) [Entitic vol] 100.8 fL High 80.0-100.0 [facility] Comment on above: Order Comment: Speci men Type: BLOOD SPECIMENOrdering Facility: [facility] Address: [address] [place] [address] Performed By: #### 5 7021-8 ####[facility] LABCLIA [id number] [place] [address] Monocytes (Bld) [#/Vol] 0.76 10*3/uL Normal <0.87 [facility] Comment on above: Order Comment: Speci men Type: BLOOD SPECIMENOrdering Facility: [facility] Address: [address] [place] [address] Performed By: #### 5 7021-8 ####[facility] LABCLIA [id number] [place] [address] Monocytes/100 WBC (Bld) 6.8 % Normal [facility] Comment on above: Order Comment: Speci men Type: BLOOD SPECIMENOrdering Facility: [facility] Address: [address] [place] [address] Performed By: #### 5 7021-8 ####[facility] LABCLIA [id number] [place] [address] Neutrophils (Bld) [#/Vol] 8.98 10*3/uL High 1.45-7.50 [facility] Comment on above: Order Comment: Speci men Type: BLOOD SPECIMENOrdering Facility: [facility] Address: [address] [place] [address] Performed By: #### 5 7021-8 ####[facility] LABCLIA [id number] [place] [address] Neutrophils/100 WBC (Bld) 79.9 % Normal [facility] Comment on above: Order Comment: Speci men Type: BLOOD SPECIMENOrdering Facility: [facility] Address: [address] [place] [address] Performed By: #### 5 7021-8 ####[facility] LABCLIA [id number] [place] [address] Nucleated RBC (Bld) [#/Vol] 10*3/uL Normal <0.01 [facility] Comment on above: Order Comment: Speci men Type: BLOOD SPECIMENOrdering Facility: [facility] Address: [address] [place] [address] Performed By: #### 5 7021-8 ####[facility] LABCLIA [id number] [place] [address] Nucleated RBC/100 WBC (Bld) [Ratio] 0.0 /[address] [facility] Comment on above: Order Comment: Speci men Type: BLOOD SPECIMENOrdering Facility: [facility] Address: [address] [place] [address] Performed By: #### 5 7021-8 ####[facility] LABCLIA [id number] [place] [address] Platelet mean volume (Bld) [Entitic vol] 9.9 fL Normal 9.0-12.7 [facility] Comment on above: Order Comment: Speci men Type: BLOOD SPECIMENOrdering Facility: [facility] Address: [address] [place] [address] Performed By: #### 5 7021-8 ####[facility] LABCLIA [id number] [place] [address] Platelets (Bld) [#/Vol] 297 10*3/uL Normal 150-400 [facility] Comment on above: Order Comment: Speci men Type: BLOOD SPECIMENOrdering Facility: [facility] Address: [address] [place] [address] Performed By: #### 5 7021-8 ####[facility] LABCLIA [id number] [place] [address] RBC (Bld) [#/Vol] 3.55 10*6/uL Low 4.20-6.00 [facility] Comment on above: Order Comment: Speci men Type: BLOOD SPECIMENOrdering Facility: [facility] Address: [address] [place] [address] Performed By: #### 5 7021-8 ####[facility] LABCLIA [id number] [place] [address] WBC (Bld) [#/Vol] 11.22 10*3/uL High 3.70-11.00 [facility] Comment on above: Order Comment: Speci men Type: BLOOD SPECIMENOrdering Facility: [facility] Address: [address] [place] [address] Performed By: #### 5 7021-8 ####[facility] LABCLIA [id number] [place] [address] CNCNPATEDon 06-07-[address] [facility] CNNURSEon 06-07-[address] [facility] CNOVSPon 06-07-[address] [facility] CNPNon 06-07-[address] [facility] Comprehensive metabolic 2000 panelon 06-07-2023 Albumin [Mass/Vol] 4.3 g/dL Normal 3.9-4.9 [facility] Comment on above: Order Comment: Speci men Type: BLOOD SPECIMENOrdering Facility: [facility] Address: [address] [place] [address] Performed By: #### 2 4323-8 ####[facility] LABCLIA [id number] [place] [address] ALP [Catalytic activity/Vol] 127 U/L High 38-113 [facility] Comment on above: Order Comment: Speci men Type: BLOOD SPECIMENOrdering Facility: [facility] Address: [address] [place] [address] Performed By: #### 2 4323-8 ####[facility] LABCLIA [id number] [place] [address] ALT [Catalytic activity/Vol] 34 U/L Normal 10-54 [facility] Comment on above: Order Comment: Speci men Type: BLOOD SPECIMENOrdering Facility: [facility] Address: [address] [place] [address] Performed By: #### 2 4323-8 ####[facility] LABIA [id number] [place] [address] Anion gap [Moles/Vol] 9 mmol/L Normal 9-18 [facility] Comment on above: Order Comment: Speci men Type: BLOOD SPECIMENOrdering Facility: [facility] Address: [address] [place] [address] Performed By: #### 2 4323-8 ####[facility] LABCLIA [id number] [place] [address] AST [Catalytic activity/Vol] 25 U/L Normal 14-40 [facility] Comment on above: Order Comment: Speci men Type: BLOOD SPECIMENOrdering Facility: [facility] Address: [address] [place] [address] Performed By: #### 2 4323-8 ####[facility] LABCLIA [id number] [place] [address] Bilirubin [Mass/Vol] 1.3 mg/dL Normal 0.2-1.3 [facility] Comment on above: Order Comment: Speci men Type: BLOOD SPECIMENOrdering Facility: [facility] Address: [address] [place] [address] Performed By: #### 2 4323-8 ####[facility] LABCLIA [id number] [place] [address] Calcium [Mass/Vol] 10.7 mg/dL High 8.5-10.2 [facility] Comment on above: Order Comment: Speci men Type: BLOOD SPECIMENOrdering Facility: [facility] Address: [address] [place] [address] Performed By: #### 2 4323-8 ####[facility] LABCLIA [id number] [place] [address] Chloride [Moles/Vol] 103 mmol/L Normal 97-105 [facility] Comment on above: Order Comment: Speci men Type: BLOOD SPECIMENOrdering Facility: [facility] Address: [address] [place] [address] Performed By: #### 2 4323-8 ####[facility] LABCLIA [id number] [place] [address] CO2 [Moles/Vol] 25 mmol/L Normal 22-30 [facility] Comment on above: Order Comment: Speci men Type: BLOOD SPECIMENOrdering Facility: [facility] Address: [address] [place] [address] Performed By: #### 2 4323-8 ####[facility] LABCLIA [id number] [place] [address] Creatinine [Mass/Vol] 0.78 mg/dL Normal 0.73-1.22 [facility] Comment on above: Order Comment: Speci men Type: BLOOD SPECIMENOrdering Facility: [facility] Address: [address] [place] [address] Performed By: #### 2 4323-8 ####[facility] LABCLIA [id number] [place] [address] Creatinine and Glomerular filtration rate.predicted panel (S/P/Bld) 95 mL/min/1.73m??? Normal >=60 [facility] Comment on above: Order Comment: Speci men Type: BLOOD SPECIMENOrdering Facility: [facility] Address: [address] [place] [address] Result Comment: Kathy mated Glomerular Filtration Rate (eGFR) is calculated using the 2020 CKD-EPI creatinine equation. This equation utilizes serum creatinine, sex, and age as parameters. The creatinine assay has traceable calibration to isotope dilution-mass spectrometry. Refer to KDIGO guidelines for clinical interpretation. In patients with unstable renal function, e.g. those with acute kidney injury, the eGFR may not accurately reflect actual GFR. Performed By: #### 2 4323-8 ####[facility] LABCLIA [id number] [place] [address] Glucose [Mass/Vol] 165 mg/dL High 74-99 [facility] Comment on above: Order Comment: Speci men Type: BLOOD SPECIMENOrdering Facility: [facility] Address: [address] [place] [address] Result Comment: The [place] [employer] (ADA) provides guidance for cutoff values for fasting glucose and random glucose. The ADA defines fasting as no caloric intake for at least 8 hours. Fasting plasma glucose results between 100 to 125 mg/dL indicate increased risk for diabetes (prediabetes).Fasting plasma glucose results greater than or equal to 126 mg/dL meet the criteria for diagnosis of diabetes. In the absence of unequivocal hyperglycemia, results should be confirmed by repeat testing. In a patient with classic symptoms of hyperglycemia or hyperglycemic crisis, random plasma glucose results greater than or equal to 200 mg/dL meet the criteria for diagnosis of diabetes.Reference: Standards of Medical Care in Diabetes 2016, [place] [employer]. Diabetes Care. 2016.39(Suppl 1). Performed By: #### 2 4323-8 ####[facility] LABCLIA [id number] [place] [address] Potassium [Moles/Vol] 4.3 mmol/L Normal 3.7-5.1 [facility] Comment on above: Order Comment: Speci men Type: BLOOD SPECIMENOrdering Facility: [facility] Address: [address] [place] [address] Performed By: #### 2 4323-8 ####[facility] LABCLIA [id number] [place] [address] Protein [Mass/Vol] 6.9 g/dL Normal 6.3-8.0 [facility] Comment on above: Order Comment: Speci men Type: BLOOD SPECIMENOrdering Facility: [facility] Address: [address] [place] [address] Performed By: #### 2 4323-8 ####[facility] LABCLIA [id number] [place] [address] Sodium [Moles/Vol] 137 mmol/L Normal 136-144 [facility] Comment on above: Order Comment: Speci men Type: BLOOD SPECIMENOrdering Facility: [facility] Address: [address] [place] [address] Performed By: #### 2 4323-8 ####[facility] LABCLIA [id number] [place] [address] Urea nitrogen [Mass/Vol] 18 mg/dL Normal 9-24 [facility] Comment on above: Order Comment: Speci men Type: BLOOD SPECIMENOrdering Facility: [facility] Address: [address] [place] [address] Performed By: #### 2 4323-8 ####[facility] LABCLIA [id number] [place] [address] CNPNon 06-06-[address] [facility] CBC W Auto Differential pane l (Bld)on 05-24-2023 Basophils (Bld) [#/Vol] 10*3/uL Normal <0.11 [facility] Comment on above: Order Comment: Speci men Type: BLOOD SPECIMENOrdering Facility: [facility] Address: [address] [place] [address] Performed By: #### 5 7021-8 ####[facility] LABCLIA [id number] [place] [address] Basophils/100 WBC (Bld) 0.3 % Normal [facility] Comment on above: Order Comment: Speci men Type: BLOOD SPECIMENOrdering Facility: [facility] Address: [address] [place] [address] Performed By: #### 5 7021-8 ####[facility] LABCLIA [id number] [place] [address] Differential cell count method Nom (Bld) Auto Normal [facility] Comment on above: Order Comment: Speci men Type: BLOOD SPECIMENOrdering Facility: [facility] Address: [address] [place] [address] Performed By: #### 5 7021-8 ####[facility] LABCLIA [id number] [place] [address] Eosinophils (Bld) [#/Vol] 0.04 10*3/uL Normal <0.46 [facility] Comment on above: Order Comment: Speci men Type: BLOOD SPECIMENOrdering Facility: [facility] Address: [address] [place] [address] Performed By: #### 5 7021-8 ####[facility] LABCLIA [id number] [place] [address] Eosinophils/100 WBC (Bld) 0.5 % Normal [facility] Comment on above: Order Comment: Speci men Type: BLOOD SPECIMENOrdering Facility: [facility] Address: [address] [place] [address] Performed By: #### 5 7021-8 ####[facility] LABCLIA [id number] [place] [address] Erythrocyte distribution width (RBC) [Ratio] 19.4 % High 11.5-15.0 [facility] Comment on above: Order Comment: Speci men Type: BLOOD SPECIMENOrdering Facility: [facility] Address: [address] [place] [address] Performed By: #### 5 7021-8 ####[facility] LABCLIA [id number] [place] [address] Hematocrit (Bld) [Volume fraction] 33.0 % Low 39.0-51.0 [facility] Comment on above: Order Comment: Speci men Type: BLOOD SPECIMENOrdering Facility: [facility] Address: [address] [place] [address] Performed By: #### 5 7021-8 ####[facility] LABCLIA [id number] [place] [address] Hemoglobin (Bld) [Mass/Vol] 10.5 g/dL Low 13.0-17.0 [facility] Comment on above: Order Comment: Speci men Type: BLOOD SPECIMENOrdering Facility: [facility] Address: [address] [place] [address] Performed By: #### 5 7021-8 ####[facility] LABCLIA [id number] [place] [address] Immature granulocytes (Bld) [#/Vol] 0.03 10*3/uL Normal <0.10 [facility] Comment on above: Order Comment: Speci men Type: BLOOD SPECIMENOrdering Facility: [facility] Address: [address] [place] [address] Performed By: #### 5 7021-8 ####[facility] LABCLIA [id number] [place] [address] Immature granulocytes/100 WBC (Bld) 0.4 % Normal [facility] Comment on above: Order Comment: Speci men Type: BLOOD SPECIMENOrdering Facility: [facility] Address: [address] [place] [address] Performed By: #### 5 7021-8 ####[facility] LABCLIA [id number] [place] [address] Lymphocytes (Bld) [#/Vol] 1.47 10*3/uL Normal 1.00-4.00 [facility] Comment on above: Order Comment: Speci men Type: BLOOD SPECIMENOrdering Facility: [facility] Address: [address] [place] [address] Performed By: #### 5 7021-8 ####[facility] LABCLIA [id number] [place] [address] Lymphocytes/100 WBC (Bld) 19.8 % Normal [facility] Comment on above: Order Comment: Speci men Type: BLOOD SPECIMENOrdering Facility: [facility] Address: [address] [place] [address] Performed By: #### 5 7021-8 ####[facility] LABCLIA [id number] [place] [address] MCH (RBC) [Entitic mass] 32.5 pg Normal 26.0-34.0 [facility] Comment on above: Order Comment: Speci men Type: BLOOD SPECIMENOrdering Facility: [facility] Address: [address] [place] [address] Performed By: #### 5 7021-8 ####[facility] LABCLIA [id number] [place] [address] MCHC (RBC) [Mass/Vol] 31.8 g/dL Normal 30.5-36.0 [facility] Comment on above: Order Comment: Speci men Type: BLOOD SPECIMENOrdering Facility: [facility] Address: [address] [place] [address] Performed By: #### 5 7021-8 ####[facility] LABCLIA [id number] [place] [address] MCV (RBC) [Entitic vol] 102.2 fL High 80.0-100.0 [facility] Comment on above: Order Comment: Speci men Type: BLOOD SPECIMENOrdering Facility: [facility] Address: [address] [place] [address] Performed By: #### 5 7021-8 ####[facility] LABIA [id number] [place] [address] Monocytes (Bld) [#/Vol] 0.80 10*3/uL Normal <0.87 [facility] Comment on above: Order Comment: Speci men Type: BLOOD SPECIMENOrdering Facility: [facility] Address: [address] [place] [address] Performed By: #### 5 7021-8 ####[facility] LABIA [id number] [place] [address] Monocytes/100 WBC (Bld) 10.8 % Normal [facility] Comment on above: Order Comment: Speci men Type: BLOOD SPECIMENOrdering Facility: [facility] Address: [address] [place] [address] Performed By: #### 5 7021-8 ####[facility] LABIA [id number] [place] [address] Neutrophils (Bld) [#/Vol] 5.07 10*3/uL Normal 1.45-7.50 [facility] Comment on above: Order Comment: Speci men Type: BLOOD SPECIMENOrdering Facility: [facility] Address: [address] [place] [address] Performed By: #### 5 7021-8 ####[facility] LABCLIA [id number] [place] [address] Neutrophils/100 WBC (Bld) 68.2 % Normal [facility] Comment on above: Order Comment: Speci men Type: BLOOD SPECIMENOrdering Facility: [facility] Address: [address] [place] [address] Performed By: #### 5 7021-8 ####[facility] LABCLIA [id number] [place] [address] Nucleated RBC (Bld) [#/Vol] 10*3/uL Normal <0.01 [facility] Comment on above: Order Comment: Speci men Type: BLOOD SPECIMENOrdering Facility: [facility] Address: [address] [place] [address] Performed By: #### 5 7021-8 ####[facility] LABCLIA [id number] [place] [address] Nucleated RBC/100 WBC (Bld) [Ratio] 0.0 /[address] [facility] Comment on above: Order Comment: Speci men Type: BLOOD SPECIMENOrdering Facility: [facility] Address: [address] [place] [address] Performed By: #### 5 7021-8 ####[facility] LABCLIA [id number] [place] [address] Platelet mean volume (Bld) [Entitic vol] 9.9 fL Normal 9.0-12.7 [facility] Comment on above: Order Comment: Speci men Type: BLOOD SPECIMENOrdering Facility: [facility] Address: [address] [place] [address] Performed By: #### 5 7021-8 ####[facility] LABCLIA [id number] [place] [address] Platelets (Bld) [#/Vol] 222 10*3/uL Normal 150-400 [facility] Comment on above: Order Comment: Speci men Type: BLOOD SPECIMENOrdering Facility: [facility] Address: [place] [place] [address] Performed By: #### 5 7021-8 ####[facility] LABCLIA [id number] [place] [address] RBC (Bld) [#/Vol] 3.23 10*6/uL Low 4.20-6.00 [facility] Comment on above: Order Comment: Speci men Type: BLOOD SPECIMENOrdering Facility: [facility] Address: [address] [place] [address] Performed By: #### 5 7021-8 ####[facility] LABCLIA [id number] [place] [address] WBC (Bld) [#/Vol] 7.43 10*3/uL Normal 3.70-11.00 [facility] Comment on above: Order Comment: Speci men Type: BLOOD SPECIMENOrdering Facility: [facility] Address: [address] [place] [address] Performed By: #### 5 7021-8 ####[facility] LABIA [id number] [place] [address] CNOVSPon 05-24-[address] [facility] Cancer Ag19-9 SerPl-aCncon 0 05-24-2023 Cancer Ag 19-9 Qn 1757.0 [arb'U]/mL High <36.0 [facility] Comment on above: Order Comment: Speci men Type: BLOOD SPECIMENOrdering Facility: [facility] Address: [address] [place] [address] Result Comment: [facility] er antigen 19-9 test is used as an aid in monitoring response to treatment or recurrence in patients with established pancreatic, hepatobiliary, or gastrointestinal malignancies. Clinical correlation is required.The CA 19-9 Antigen test was performed using the [employer] DXI paramagnetic particle chemiluminescent immunoassay method. Results obtained with different assay methods or kits cannot be used interchangeably. Performed By: #### 2 4108-3 ####[facility] LABCLIA [id number] [facility] [id number] [address] [place] Comprehensive metabolic 2000 panelon 05-24-2023 Albumin [Mass/Vol] 4.3 g/dL Normal 3.9-4.9 [facility] Comment on above: Order Comment: Speci men Type: BLOOD SPECIMENOrdering Facility: [facility] Address: [address] [place] [address] Performed By: #### 2 4323-8 ####[facility] LABCLIA [id number] [place] [address] ALP [Catalytic activity/Vol] 127 U/L High 38-113 [facility] Comment on above: Order Comment: Speci men Type: BLOOD SPECIMENOrdering Facility: [facility] Address: [address] [place] [address] Performed By: #### 2 4323-8 ####[facility] LABCLIA [id number] [place] [address] ALT [Catalytic activity/Vol] 22 U/L Normal 10-54 [facility] Comment on above: Order Comment: Speci men Type: BLOOD SPECIMENOrdering Facility: [facility] Address: [address] [place] [address] Performed By: #### 2 4323-8 ####[facility] LABCLIA [id number] [place] [address] Anion gap [Moles/Vol] 9 mmol/L Normal 9-18 [facility] Comment on above: Order Comment: Speci men Type: BLOOD SPECIMENOrdering Facility: [facility] Address: [address] [place] [address] Performed By: #### 2 4323-8 ####[facility] LABCLIA [id number] [place] [address] AST [Catalytic activity/Vol] 20 U/L Normal 14-40 [facility] Comment on above: Order Comment: Speci men Type: BLOOD SPECIMENOrdering Facility: [facility] Address: [address] [place] [address] Performed By: #### 2 4323-8 ####[facility] LABCLIA [id number] [place] [address] Bilirubin [Mass/Vol] 1.3 mg/dL Normal 0.2-1.3 [facility] Comment on above: Order Comment: Speci men Type: BLOOD SPECIMENOrdering Facility: [facility] Address: [address] [place] [address] Performed By: #### 2 4323-8 ####[facility] LABCLIA [id number] [place] [address] Calcium [Mass/Vol] 10.8 mg/dL High 8.5-10.2 [facility] Comment on above: Order Comment: Speci men Type: BLOOD SPECIMENOrdering Facility: [facility] Address: [address] [place] [address] Performed By: #### 2 4323-8 ####[facility] LABCLIA [id number] [place] [address] Chloride [Moles/Vol] 101 mmol/L Normal 97-105 [facility] Comment on above: Order Comment: Speci men Type: BLOOD SPECIMENOrdering Facility: [facility] Address: [address] [place] [address] Performed By: #### 2 4323-8 ####[facility] LABCLIA [id number] [place] [address] CO2 [Moles/Vol] 25 mmol/L Normal 22-30 [facility] Comment on above: Order Comment: Speci men Type: BLOOD SPECIMENOrdering Facility: [facility] Address: [address] [place] [address] Performed By: #### 2 4323-8 ####[facility] LABCLIA [id number] [place] [address] Creatinine [Mass/Vol] 0.84 mg/dL Normal 0.73-1.22 [facility] Comment on above: Order Comment: Speci men Type: BLOOD SPECIMENOrdering Facility: [facility] Address: [address] [place] [address] Performed By: #### 2 4323-8 ####[facility] LABCLIA [id number] [place] [address] Creatinine and Glomerular filtration rate.predicted panel (S/P/Bld) 93 mL/min/1.73m??? Normal >=60 [facility] Comment on above: Order Comment: Noemí hoff Type: BLOOD SPECIMENOrdering Facility: [facility] Address: [address] [place] [address] Result Comment: Kathy mated Glomerular Filtration Rate (eGFR) is calculated using the 2020 CKD-EPI creatinine equation. This equation utilizes serum creatinine, sex, and age as parameters. The creatinine assay has traceable calibration to isotope dilution-mass spectrometry. Refer to KDIGO guidelines for clinical interpretation. In patients with unstable renal function, e.g. those with acute kidney injury, the eGFR may not accurately reflect actual GFR. Performed By: #### 2 4323-8 ####[facility] LABCLIA [id number] [place] [address] Glucose [Mass/Vol] 129 mg/dL High 74-99 [facility] Comment on above: Order Comment: Noemí hoff Type: BLOOD SPECIMENOrdering Facility: [facility] Address: [address] [place] [address] Result Comment: The [place] [employer] (ADA) provides guidance for cutoff values for fasting glucose and random glucose. The ADA defines fasting as no caloric intake for at least 8 hours. Fasting plasma glucose results between 100 to 125 mg/dL indicate increased risk for diabetes (prediabetes).Fasting plasma glucose results greater than or equal to 126 mg/dL meet the criteria for diagnosis of diabetes. In the absence of unequivocal hyperglycemia, results should be confirmed by repeat testing. In a patient with classic symptoms of hyperglycemia or hyperglycemic crisis, random plasma glucose results greater than or equal to 200 mg/dL meet the criteria for diagnosis of diabetes.Reference: Standards of Medical Care in Diabetes 2016, [place] [employer]. Diabetes Care. 2016.39(Suppl 1). Performed By: #### 2 4323-8 ####[facility] LABCLIA [id number] [place] [address] Potassium [Moles/Vol] 4.0 mmol/L Normal 3.7-5.1 [facility] Comment on above: Order Comment: Speci men Type: BLOOD SPECIMENOrdering Facility: [facility] Address: [address] [place] [address] Performed By: #### 2 4323-8 ####[facility] LABCLIA [id number] [place] [address] Protein [Mass/Vol] 7.2 g/dL Normal 6.3-8.0 [facility] Comment on above: Order Comment: Speci men Type: BLOOD SPECIMENOrdering Facility: [facility] Address: [address] [place] [address] Performed By: #### 2 4323-8 ####[facility] LABCLIA [id number] [place] [address] Sodium [Moles/Vol] 135 mmol/L Low 136-144 [facility] Comment on above: Order Comment: Speci men Type: BLOOD SPECIMENOrdering Facility: [facility] Address: [address] [place] [address] Performed By: #### 2 4323-8 ####[facility] LABCLIA [id number] [place] [address] Urea nitrogen [Mass/Vol] 20 mg/dL Normal 9-24 [facility] Comment on above: Order Comment: Speci men Type: BLOOD SPECIMENOrdering Facility: [facility] Address: [address] [place] [address] Performed By: #### 2 4323-8 ####[facility] LABIA [id number] [place] [address] CREATININE BLDon 05-18-2023 Creatinine [Mass/Vol] 0.80 mg/dL Normal 0.73-1.22 [facility] Comment on above: Order Comment: Speci men Type: BLOOD SPECIMENOrdering Facility: [facility] Address: [address] [place] [address] Performed By: #### C RET1 ####[facility] LABCLIA [id number] [place] [address] Creatinine and Glomerular filtration rate.predicted panel (S/P/Bld) 94 mL/min/1.73m??? Normal >=60 [facility] Comment on above: Order Comment: Speci men Type: BLOOD SPECIMENOrdering Facility: [facility] Address: [address] [place] [address] Result Comment: Kathy mated Glomerular Filtration Rate (eGFR) is calculated using the 2020 CKD-EPI creatinine equation. This equation utilizes serum creatinine, sex, and age as parameters. The creatinine assay has traceable calibration to isotope dilution-mass spectrometry. Refer to KDIGO guidelines for clinical interpretation. In patients with unstable renal function, e.g. those with acute kidney injury, the eGFR may not accurately reflect actual GFR. Performed By: #### C RET1 ####[facility] LABCLIA [id number] [place] [address] CT ABD/PEL W IVCONon 023 CT ABD/PEL W IVCON Normal [facility] CT CHEST W IVCONon 3 CT CHEST W IVCON Normal [facility] CBC W Auto Differential pane l (Bld)on 05-12-2023 Basophils (Bld) [#/Vol] 0.03 10*3/uL Normal <0.11 [facility] Comment on above: Order Comment: Speci men Type: BLOOD SPECIMENOrdering Facility: [facility] Address: [address] [place] [address] Performed By: #### 5 7021-8 ####[facility] LABCLIA [id number] [place] [address] Basophils/100 WBC (Bld) 0.5 % Normal [facility] Comment on above: Order Comment: Speci men Type: BLOOD SPECIMENOrdering Facility: [facility] Address: [address] [place] [address] Performed By: #### 5 7021-8 ####[facility] LABCLIA [id number] [place] [address] Differential cell count method Nom (Bld) Auto Normal [facility] Comment on above: Order Comment: Speci men Type: BLOOD SPECIMENOrdering Facility: [facility] Address: [address] [place] [address] Performed By: #### 5 7021-8 ####[facility] LABCLIA [id number] [place] [address] Eosinophils (Bld) [#/Vol] 10*3/uL Normal <0.46 [facility] Comment on above: Order Comment: Speci men Type: BLOOD SPECIMENOrdering Facility: [facility] Address: [address] [place] [address] Performed By: #### 5 7021-8 ####[facility] LABCLIA [id number] [place] [address] Eosinophils/100 WBC (Bld) 0.4 % Normal [facility] Comment on above: Order Comment: Speci men Type: BLOOD SPECIMENOrdering Facility: [facility] Address: [address] [place] [address] Performed By: #### 5 7021-8 ####[facility] LABCLIA [id number] [place] [address] Erythrocyte distribution width (RBC) [Ratio] 17.2 % High 11.5-15.0 [facility] Comment on above: Order Comment: Speci men Type: BLOOD SPECIMENOrdering Facility: [facility] Address: [address] [place] [address] Performed By: #### 5 7021-8 ####[facility] LABCLIA [id number] [place] [address] Hematocrit (Bld) [Volume fraction] 29.8 % Low 39.0-51.0 [facility] Comment on above: Order Comment: Speci men Type: BLOOD SPECIMENOrdering Facility: [facility] Address: [address] [place] [address] Performed By: #### 5 7021-8 ####[facility] LABCLIA [id number] [place] [address] Hemoglobin (Bld) [Mass/Vol] 9.8 g/dL Low 13.0-17.0 [facility] Comment on above: Order Comment: Speci men Type: BLOOD SPECIMENOrdering Facility: [facility] Address: [address] [place] [address] Performed By: #### 5 7021-8 ####[facility] LABCLIA [id number] [place] [address] Immature granulocytes (Bld) [#/Vol] 10*3/uL Normal <0.10 [facility] Comment on above: Order Comment: Speci men Type: BLOOD SPECIMENOrdering Facility: [facility] Address: [address] [place] [address] Performed By: #### 5 7021-8 ####[facility] LABCLIA [id number] [place] [address] Immature granulocytes/100 WBC (Bld) 0.4 % Normal [facility] Comment on above: Order Comment: Speci men Type: BLOOD SPECIMENOrdering Facility: [facility] Address: [address] [place] [address] Performed By: #### 5 7021-8 ####[facility] LABCLIA [id number] [place] [address] Lymphocytes (Bld) [#/Vol] 1.83 10*3/uL Normal 1.00-4.00 [facility] Comment on above: Order Comment: Speci men Type: BLOOD SPECIMENOrdering Facility: [facility] Address: [address] [place] [address] Performed By: #### 5 7021-8 ####[facility] LABCLIA [id number] [place] [address] Lymphocytes/100 WBC (Bld) 33.0 % Normal [facility] Comment on above: Order Comment: Speci men Type: BLOOD SPECIMENOrdering Facility: [facility] Address: [address] [place] [address] Performed By: #### 5 7021-8 ####[facility] LABCLIA [id number] [place] [address] MCH (RBC) [Entitic mass] 31.5 pg Normal 26.0-34.0 [facility] Comment on above: Order Comment: Speci men Type: BLOOD SPECIMENOrdering Facility: [facility] Address: [address] [place] [address] Performed By: #### 5 7021-8 ####[facility] LABCLIA [id number] [place] [address] MCHC (RBC) [Mass/Vol] 32.9 g/dL Normal 30.5-36.0 [facility] Comment on above: Order Comment: Speci men Type: BLOOD SPECIMENOrdering Facility: [facility] Address: [address] [place] [address] Performed By: #### 5 7021-8 ####[facility] LABCLIA [id number] [place] [address] MCV (RBC) [Entitic vol] 95.8 fL Normal 80.0-100.0 [facility] Comment on above: Order Comment: Speci men Type: BLOOD SPECIMENOrdering Facility: [facility] Address: [address] [place] [address] Performed By: #### 5 7021-8 ####[facility] LABCLIA [id number] [place] [address] Monocytes (Bld) [#/Vol] 0.40 10*3/uL Normal <0.87 [facility] Comment on above: Order Comment: Speci men Type: BLOOD SPECIMENOrdering Facility: [facility] Address: [address] [place] [address] Performed By: #### 5 7021-8 ####[facility] LABCLIA [id number] [place] [address] Monocytes/100 WBC (Bld) 7.2 % Normal [facility] Comment on above: Order Comment: Speci men Type: BLOOD SPECIMENOrdering Facility: [facility] Address: [address] [place] [address] Performed By: #### 5 7021-8 ####[facility] LABCLIA [id number] [place] [address] Neutrophils (Bld) [#/Vol] 3.24 10*3/uL Normal 1.45-7.50 [facility] Comment on above: Order Comment: Speci men Type: BLOOD SPECIMENOrdering Facility: [facility] Address: [address] [place] [address] Performed By: #### 5 7021-8 ####[facility] LABCLIA [id number] [place] [address] Neutrophils/100 WBC (Bld) 58.5 % Normal [facility] Comment on above: Order Comment: Speci men Type: BLOOD SPECIMENOrdering Facility: [facility] Address: [address] [place] [address] Performed By: #### 5 7021-8 ####[facility] LABCLIA [id number] [place] [address] Nucleated RBC (Bld) [#/Vol] 10*3/uL Normal <0.01 [facility] Comment on above: Order Comment: Speci men Type: BLOOD SPECIMENOrdering Facility: [facility] Address: [address] [place] [address] Performed By: #### 5 7021-8 ####[facility] LABCLIA [id number] [place] [address] Nucleated RBC/100 WBC (Bld) [Ratio] 0.0 /[address] [facility] Comment on above: Order Comment: Speci men Type: BLOOD SPECIMENOrdering Facility: [facility] Address: [address] [place] [address] Performed By: #### 5 7021-8 ####[facility] LABCLIA [id number] [place] [address] Platelet mean volume (Bld) [Entitic vol] 10.2 fL Normal 9.0-12.7 [facility] Comment on above: Order Comment: Speci men Type: BLOOD SPECIMENOrdering Facility: [facility] Address: [address] [place] [address] Performed By: #### 5 7021-8 ####[facility] LABCLIA [id number] [place] [address] Platelets (Bld) [#/Vol] 186 10*3/uL Normal 150-400 [facility] Comment on above: Order Comment: Speci men Type: BLOOD SPECIMENOrdering Facility: [facility] Address: [address] [place] [address] Performed By: #### 5 7021-8 ####[facility] LABCLIA [id number] [place] [address] RBC (Bld) [#/Vol] 3.11 10*6/uL Low 4.20-6.00 [facility] Comment on above: Order Comment: Speci men Type: BLOOD SPECIMENOrdering Facility: [facility] Address: [address] [place] [address] Performed By: #### 5 7021-8 ####[facility] LABCLIA [id number] [place] [address] WBC (Bld) [#/Vol] 5.54 10*3/uL Normal 3.70-11.00 [facility] Comment on above: Order Comment: Speci men Type: BLOOD SPECIMENOrdering Facility: [facility] Address: [address] [place] [address] Performed By: #### 5 7021-8 ####[facility] LABCLIA [id number] [place] [address] CNOVSPon 05-12-2023 CNOVSP Normal [facility] metabolic 2000 panelon 05-12-2023 Albumin [Mass/Vol] 4.1 g/dL Normal 3.9-4.9 [facility] Comment on above: Order Comment: Speci men Type: BLOOD SPECIMENOrdering Facility: [facility] Address: [address] [place] [address] Performed By: #### 2 4323-8 ####[facility] LABCLIA [id number] [place] [address] ALP [Catalytic activity/Vol] 116 U/L High 38-113 [facility] Comment on above: Order Comment: Speci men Type: BLOOD SPECIMENOrdering Facility: [facility] Address: [address] [place] [address] Performed By: #### 2 4323-8 ####[facility] LABCLIA [id number] [place] [address] ALT [Catalytic activity/Vol] 32 U/L Normal 10-54 [facility] Comment on above: Order Comment: Speci men Type: BLOOD SPECIMENOrdering Facility: [facility] Address: [address] [place] [address] Performed By: #### 2 4323-8 ####[facility] LABCLIA [id number] [place] [address] Anion gap [Moles/Vol] 8 mmol/L Low 9-18 [facility] Comment on above: Order Comment: Speci men Type: BLOOD SPECIMENOrdering Facility: [facility] Address: [address] [place] [address] Performed By: #### 2 4323-8 ####[facility] LABCLIA [id number] [place] [address] AST [Catalytic activity/Vol] 24 U/L Normal 14-40 [facility] Comment on above: Order Comment: Speci men Type: BLOOD SPECIMENOrdering Facility: [facility] Address: [address] [place] [address] Performed By: #### 2 4323-8 ####[facility] LABCLIA [id number] [place] [address] Bilirubin [Mass/Vol] 1.2 mg/dL Normal 0.2-1.3 [facility] Comment on above: Order Comment: Speci men Type: BLOOD SPECIMENOrdering Facility: [facility] Address: [address] [place] [address] Performed By: #### 2 4323-8 ####[facility] LABCLIA [id number] [place] [address] Calcium [Mass/Vol] 10.9 mg/dL High 8.5-10.2 [facility] Comment on above: Order Comment: Speci men Type: BLOOD SPECIMENOrdering Facility: [facility] Address: [address] [place] [address] Performed By: #### 2 4323-8 ####[facility] LABCLIA [id number] [place] [address] Chloride [Moles/Vol] 104 mmol/L Normal 97-105 [facility] Comment on above: Order Comment: Speci men Type: BLOOD SPECIMENOrdering Facility: [facility] Address: [address] [place] [address] Performed By: #### 2 4323-8 ####[facility] LABCLIA [id number] [place] [address] CO2 [Moles/Vol] 26 mmol/L Normal 22-30 [facility] Comment on above: Order Comment: Speci men Type: BLOOD SPECIMENOrdering Facility: [facility] Address: [address] [place] [address] Performed By: #### 2 4323-8 ####[facility] LABCLIA [id number] [place] [address] Creatinine [Mass/Vol] 0.75 mg/dL Normal 0.73-1.22 [facility] Comment on above: Order Comment: Noemí hoff Type: BLOOD SPECIMENOrdering Facility: [facility] Address: [address] [place] [address] Performed By: #### 2 4323-8 ####[facility] LABCLIA [id number] [place] [address] Creatinine and Glomerular filtration rate.predicted panel (S/P/Bld) 96 mL/min/1.73m??? Normal >=60 [facility] Comment on above: Order Comment: Specmack hoff Type: BLOOD SPECIMENOrdering Facility: [facility] Address: [address] [place] [address] Result Comment: Kathy mated Glomerular Filtration Rate (eGFR) is calculated using the 2020 CKD-EPI creatinine equation. This equation utilizes serum creatinine, sex, and age as parameters. The creatinine assay has traceable calibration to isotope dilution-mass spectrometry. Refer to KDIGO guidelines for clinical interpretation. In patients with unstable renal function, e.g. those with acute kidney injury, the eGFR may not accurately reflect actual GFR. Performed By: #### 2 4323-8 ####[facility] LABCLIA [id number] [place] [address] Glucose [Mass/Vol] 152 mg/dL High 74-99 [facility] Comment on above: Order Comment: Noemí hoff Type: BLOOD SPECIMENOrdering Facility: [facility] Address: [address] [place] [address] Result Comment: The [place] [employer] (ADA) provides guidance for cutoff values for fasting glucose and random glucose. The ADA defines fasting as no caloric intake for at least 8 hours. Fasting plasma glucose results between 100 to 125 mg/dL indicate increased risk for diabetes (prediabetes).Fasting plasma glucose results greater than or equal to 126 mg/dL meet the criteria for diagnosis of diabetes. In the absence of unequivocal hyperglycemia, results should be confirmed by repeat testing. In a patient with classic symptoms of hyperglycemia or hyperglycemic crisis, random plasma glucose results greater than or equal to 200 mg/dL meet the criteria for diagnosis of diabetes.Reference: Standards of Medical Care in Diabetes 2016, [place] [employer]. Diabetes Care. 2016.39(Suppl 1). Performed By: #### 2 4323-8 ####[facility] LABCLIA [id number] [place] [address] Potassium [Moles/Vol] 4.1 mmol/L Normal 3.7-5.1 [facility] Comment on above: Order Comment: Speci men Type: BLOOD SPECIMENOrdering Facility: [facility] Address: [address] [place] [address] Performed By: #### 2 4323-8 ####[facility] LABCLIA [id number] [place] [address] Protein [Mass/Vol] 7.1 g/dL Normal 6.3-8.0 [facility] Comment on above: Order Comment: Speci men Type: BLOOD SPECIMENOrdering Facility: [facility] Address: [address] [place] [address] Performed By: #### 2 4323-8 ####[facility] LABCLIA [id number] [place] [address] Sodium [Moles/Vol] 138 mmol/L Normal 136-144 [facility] Comment on above: Order Comment: Speci men Type: BLOOD SPECIMENOrdering Facility: [facility] Address: [address] [place] [address] Performed By: #### 2 4323-8 ####[facility] LABCLIA [id number] [place] [address] Urea nitrogen [Mass/Vol] 16 mg/dL Normal 9-24 [facility] Comment on above: Order Comment: Speci men Type: BLOOD SPECIMENOrdering Facility: [facility] Address: [address] [place] [address] Performed By: #### 2 4323-8 ####[facility] LABIA [id number] [place] [address] CBC W Auto Differential pane l (Bld)on 05-05-2023 Basophils (Bld) [#/Vol] 0.05 10*3/uL Normal <0.11 [facility] Comment on above: Order Comment: Speci men Type: BLOOD SPECIMENOrdering Facility: [facility] Address: [address] [place] [address] Performed By: #### 5 7021-8 ####[facility] LABCLIA [id number] [place] [address] Basophils/100 WBC (Bld) 0.3 % Normal [facility] Comment on above: Order Comment: Speci men Type: BLOOD SPECIMENOrdering Facility: [facility] Address: [address] [place] [address] Performed By: #### 5 7021-8 ####[facility] LABCLIA [id number] [place] [address] Differential cell count method Nom (Bld) Auto Normal [facility] Comment on above: Order Comment: Speci men Type: BLOOD SPECIMENOrdering Facility: [facility] Address: [address] [place] [address] Performed By: #### 5 7021-8 ####[facility] LABCLIA [id number] [place] [address] Eosinophils (Bld) [#/Vol] 0.04 10*3/uL Normal <0.46 [facility] Comment on above: Order Comment: Speci men Type: BLOOD SPECIMENOrdering Facility: [facility] Address: [address] [place] [address] Performed By: #### 5 7021-8 ####[facility] LABCLIA [id number] [place] [address] Eosinophils/100 WBC (Bld) 0.3 % Normal [facility] Comment on above: Order Comment: Speci men Type: BLOOD SPECIMENOrdering Facility: [facility] Address: [address] [place] [address] Performed By: #### 5 7021-8 ####[facility] LABCLIA [id number] [place] [address] Erythrocyte distribution width (RBC) [Ratio] 17.2 % High 11.5-15.0 [facility] Comment on above: Order Comment: Speci men Type: BLOOD SPECIMENOrdering Facility: [facility] Address: [address] [place] [address] Performed By: #### 5 7021-8 ####[facility] LABCLIA [id number] [place] [address] Hematocrit (Bld) [Volume fraction] 36.8 % Low 39.0-51.0 [facility] Comment on above: Order Comment: Speci men Type: BLOOD SPECIMENOrdering Facility: [facility] Address: [address] [place] [address] Performed By: #### 5 7021-8 ####[facility] LABCLIA [id number] [place] [address] Hemoglobin (Bld) [Mass/Vol] 12.0 g/dL Low 13.0-17.0 [facility] Comment on above: Order Comment: Speci men Type: BLOOD SPECIMENOrdering Facility: [facility] Address: [address] [place] [address] Performed By: #### 5 7021-8 ####[facility] LABCLIA [id number] [place] [address] Immature granulocytes (Bld) [#/Vol] 0.07 10*3/uL Normal <0.10 [facility] Comment on above: Order Comment: Speci men Type: BLOOD SPECIMENOrdering Facility: [facility] Address: [address] [place] [address] Performed By: #### 5 7021-8 ####[facility] LABIA [id number] [place] [address] Immature granulocytes/100 WBC (Bld) 0.5 % Normal [facility] Comment on above: Order Comment: Speci men Type: BLOOD SPECIMENOrdering Facility: [facility] Address: [address] [place] [address] Performed By: #### 5 7021-8 ####[facility] LABCLIA [id number] [place] [address] Lymphocytes (Bld) [#/Vol] 2.10 10*3/uL Normal 1.00-4.00 [facility] Comment on above: Order Comment: Speci men Type: BLOOD SPECIMENOrdering Facility: [facility] Address: [address] [place] [address] Performed By: #### 5 7021-8 ####[facility] LABCLIA [id number] [place] [address] Lymphocytes/100 WBC (Bld) 14.4 % Normal [facility] Comment on above: Order Comment: Speci men Type: BLOOD SPECIMENOrdering Facility: [facility] Address: [address] [place] [address] Performed By: #### 5 7021-8 ####[facility] LABCLIA [id number] [place] [address] MCH (RBC) [Entitic mass] 31.4 pg Normal 26.0-34.0 [facility] Comment on above: Order Comment: Speci men Type: BLOOD SPECIMENOrdering Facility: [facility] Address: [address] [place] [address] Performed By: #### 5 7021-8 ####[facility] LABCLIA [id number] [place] [address] MCHC (RBC) [Mass/Vol] 32.6 g/dL Normal 30.5-36.0 [facility] Comment on above: Order Comment: Speci men Type: BLOOD SPECIMENOrdering Facility: [facility] Address: [address] [place] [address] Performed By: #### 5 7021-8 ####[facility] LABCLIA [id number] [place] [address] MCV (RBC) [Entitic vol] 96.3 fL Normal 80.0-100.0 [facility] Comment on above: Order Comment: Speci men Type: BLOOD SPECIMENOrdering Facility: [facility] Address: [address] [place] [address] Performed By: #### 5 7021-8 ####[facility] LABCLIA [id number] [place] [address] Monocytes (Bld) [#/Vol] 1.12 10*3/uL High <0.87 [facility] Comment on above: Order Comment: Speci men Type: BLOOD SPECIMENOrdering Facility: [facility] Address: [address] [place] [address] Performed By: #### 5 7021-8 ####[facility] LABCLIA [id number] [place] [address] Monocytes/100 WBC (Bld) 7.7 % Normal [facility] Comment on above: Order Comment: Speci men Type: BLOOD SPECIMENOrdering Facility: [facility] Address: [address] [place] [address] Performed By: #### 5 7021-8 ####[facility] LABCLIA [id number] [place] [address] Neutrophils (Bld) [#/Vol] 11.22 10*3/uL High 1.45-7.50 [facility] Comment on above: Order Comment: Speci men Type: BLOOD SPECIMENOrdering Facility: [facility] Address: [address] [place] [address] Performed By: #### 5 7021-8 ####[facility] LABCLIA [id number] [place] [address] Neutrophils/100 WBC (Bld) 76.8 % Normal [facility] Comment on above: Order Comment: Speci men Type: BLOOD SPECIMENOrdering Facility: [facility] Address: [address] [place] [address] Performed By: #### 5 7021-8 ####[facility] LABCLIA [id number] [place] [address] Nucleated RBC (Bld) [#/Vol] 10*3/uL Normal <0.01 [facility] Comment on above: Order Comment: Speci men Type: BLOOD SPECIMENOrdering Facility: [facility] Address: [address] [place] [address] Performed By: #### 5 7021-8 ####[facility] LABCLIA [id number] [place] [address] Nucleated RBC/100 WBC (Bld) [Ratio] 0.0 /[address] [facility] Comment on above: Order Comment: Speci men Type: BLOOD SPECIMENOrdering Facility: [facility] Address: [address] [place] [address] Performed By: #### 5 7021-8 ####[facility] LABCLIA [id number] [place] [address] Platelet mean volume (Bld) [Entitic vol] 10.2 fL Normal 9.0-12.7 [facility] Comment on above: Order Comment: Speci men Type: BLOOD SPECIMENOrdering Facility: [facility] Address: [address] [place] [address] Performed By: #### 5 7021-8 ####[facility] LABCLIA [id number] [place] [address] Platelets (Bld) [#/Vol] 376 10*3/uL Normal 150-400 [facility] Comment on above: Order Comment: Speci men Type: BLOOD SPECIMENOrdering Facility: [facility] Address: [address] [place] [address] Performed By: #### 5 7021-8 ####[facility] LABCLIA [id number] [place] [address] RBC (Bld) [#/Vol] 3.82 10*6/uL Low 4.20-6.00 [facility] Comment on above: Order Comment: Speci men Type: BLOOD SPECIMENOrdering Facility: [facility] Address: [address] [place], [place] [address] Performed By: #### 5 7021-8 ####[facility] LABCLIA [id number] [place] [address] WBC (Bld) [#/Vol] 14.60 10*3/uL High 3.70-11.00 [facility] Comment on above: Order Comment: Speci men Type: BLOOD SPECIMENOrdering Facility: [facility] Address: [place] [address] Performed By: #### 5 7021-8 ####[facility] LABCLIA [id number] [place] [address] Basophils (Bld) [#/Vol] 0.05 10*3/uL <0.11 k/uL [facility] Basophils/100 WBC (Bld) 0.3 % [facility] Differential cell count method Nom (Bld) Auto [facility] Eosinophils (Bld) [#/Vol] 0.04 10*3/uL <0.46 k/uL [facility] Eosinophils/100 WBC (Bld) 0.3 % [facility] Erythrocyte distribution width (RBC) [Ratio] 17.2 % High 11.5 - 15.0 % [facility] Hematocrit (Bld) [Volume fraction] 36.8 % Low 39.0 - 51.0 % [facility] Hemoglobin (Bld) [Mass/Vol] 12.0 g/dL Low 13.0 - 17.0 g/dL [facility] Immature granulocytes (Bld) [#/Vol] 0.07 10*3/uL <0.10 k/uL [facility] Immature granulocytes/100 WBC (Bld) 0.5 % [facility] Lymphocytes (Bld) [#/Vol] 2.10 10*3/uL 1.00 - 4.00 k/uL [facility] Lymphocytes/100 WBC (Bld) 14.4 % [facility] MCH (RBC) [Entitic mass] 31.4 pg 26.0 - 34.0 pg [facility] MCHC (RBC) [Mass/Vol] 32.6 g/dL 30.5 - 36.0 g/dL [facility] MCV (RBC) [Entitic vol] 96.3 fL 80.0 - 100.0 fL [facility] Monocytes (Bld) [#/Vol] 1.12 10*3/uL High <0.87 k/uL [facility] Monocytes/100 WBC (Bld) 7.7 % [facility] Neutrophils (Bld) [#/Vol] 11.22 10*3/uL High 1.45 - 7.50 k/uL [facility] Neutrophils/100 WBC (Bld) 76.8 % [facility] Nucleated RBC (Bld) [#/Vol] <0.01 k/uL [facility] Nucleated RBC/100 WBC (Bld) [Ratio] 0.0 /100 WBC [facility] Platelet mean volume (Bld) [Entitic vol] 10.2 fL 9.0 - 12.7 fL [facility] Platelets (Bld) [#/Vol] 376 10*3/uL 150 - 400 k/uL [facility] RBC (Bld) [#/Vol] 3.82 10*6/uL Low 4.20 - 6.0 0 m/uL [facility] WBC (Bld) [#/Vol] 14.60 10*3/uL High 3.70 - 11 .00 k/uL [facility] CNOVSPon 05-05-[address] [facility] Cancer Ag19-9 SerPl-aCncon 1 07-06-2022 Cancer Ag 19-9 Qn 2059.0 [arb'U]/mL High <36.0 [facility] Comment on above: Order Comment: Speci men Type: BLOOD SPECIMENOrdering Facility: [facility] Address: [address] [place] [address] Result Comment: [facility] er antigen 19-9 test is used as an aid in monitoring response to treatment or recurrence in patients with established pancreatic, hepatobiliary, or gastrointestinal malignancies. Clinical correlation is required.The CA 19-9 Antigen test was performed using the [employer] DXI paramagnetic particle chemiluminescent immunoassay method. Results obtained with different assay methods or kits cannot be used interchangeably. Performed By: #### 2 4108-3 ####[facility] LABCLIA [id number] [place] [address] [facility] Comprehensive metabolic 2000 panelon 05-05-2023 Albumin [Mass/Vol] 4.3 g/dL Normal 3.9-4.9 [facility] Comment on above: Order Comment: Speci men Type: BLOOD SPECIMENOrdering Facility: [facility] Address: [address] [place] [address] Performed By: #### 2 4323-8 ####[facility] LABCLIA [id number] [place] [address] ALP [Catalytic activity/Vol] 131 U/L High 38-113 [facility] Comment on above: Order Comment: Speci men Type: BLOOD SPECIMENOrdering Facility: [facility] Address: [address] [place] [address] Performed By: #### 2 4323-8 ####[facility] LABCLIA [id number] [place] [address] ALT [Catalytic activity/Vol] 26 U/L Normal 10-54 [facility] Comment on above: Order Comment: Speci men Type: BLOOD SPECIMENOrdering Facility: [facility] Address: [address] [place] [address] Performed By: #### 2 4323-8 ####[facility] LABCLIA [id number] [place] [address] Anion gap [Moles/Vol] 10 mmol/L Normal 9-18 [facility] Comment on above: Order Comment: Speci men Type: BLOOD SPECIMENOrdering Facility: [facility] Address: [address] [place] [address] Performed By: #### 2 4323-8 ####[facility] LABCLIA [id number] [place] [address] AST [Catalytic activity/Vol] 28 U/L Normal 14-40 [facility] Comment on above: Order Comment: Speci men Type: BLOOD SPECIMENOrdering Facility: [facility] Address: [address] [place] [address] Performed By: #### 2 4323-8 ####[facility] LABCLIA [id number] [place] [address] Bilirubin [Mass/Vol] 1.3 mg/dL Normal 0.2-1.3 [facility] Comment on above: Order Comment: Speci men Type: BLOOD SPECIMENOrdering Facility: [facility] Address: [address] [place] [address] Performed By: #### 2 4323-8 ####[facility] LABCLIA [id number] [place] [address] Calcium [Mass/Vol] 11.1 mg/dL High 8.5-10.2 [facility] Comment on above: Order Comment: Speci men Type: BLOOD SPECIMENOrdering Facility: [facility] Address: [address] [place] [address] Performed By: #### 2 4323-8 ####[facility] LABCLIA [id number] [place] [address] Chloride [Moles/Vol] 101 mmol/L Normal 97-105 [facility] Comment on above: Order Comment: Speci men Type: BLOOD SPECIMENOrdering Facility: [facility] Address: [address] [place] [address] Performed By: #### 2 4323-8 ####[facility] LABCLIA [id number] [place] [address] CO2 [Moles/Vol] 24 mmol/L Normal 22-30 [facility] Comment on above: Order Comment: Speci men Type: BLOOD SPECIMENOrdering Facility: [facility] Address: [address] [place] [address] Performed By: #### 2 4323-8 ####[facility] LABCLIA [id number] [place] [address] Creatinine [Mass/Vol] 0.87 mg/dL Normal 0.73-1.22 [facility] Comment on above: Order Comment: Speci men Type: BLOOD SPECIMENOrdering Facility: [facility] Address: [address] [place] [address] Performed By: #### 2 4323-8 ####[facility] LABCLIA [id number] [place] [address] Creatinine and Glomerular filtration rate.predicted panel (S/P/Bld) 92 mL/min/1.73m??? Normal >=60 [facility] Comment on above: Order Comment: Speci men Type: BLOOD SPECIMENOrdering Facility: [facility] Address: [address] [place] [address] Result Comment: Kathy mated Glomerular Filtration Rate (eGFR) is calculated using the 2020 CKD-EPI creatinine equation. This equation utilizes serum creatinine, sex, and age as parameters. The creatinine assay has traceable calibration to isotope dilution-mass spectrometry. Refer to KDIGO guidelines for clinical interpretation. In patients with unstable renal function, e.g. those with acute kidney injury, the eGFR may not accurately reflect actual GFR. Performed By: #### 2 4323-8 ####[facility] LABCLIA [id number] [place] [address] Glucose [Mass/Vol] 154 mg/dL High 74-99 [facility] Comment on above: Order Comment: Rajanii luis eduardo Type: BLOOD SPECIMENOrdering Facility: [facility] Address: [address] [place] [address] Result Comment: The [place] [employer] (ADA) provides guidance for cutoff values for fasting glucose and random glucose. The ADA defines fasting as no caloric intake for at least 8 hours. Fasting plasma glucose results between 100 to 125 mg/dL indicate increased risk for diabetes (prediabetes).Fasting plasma glucose results greater than or equal to 126 mg/dL meet the criteria for diagnosis of diabetes. In the absence of unequivocal hyperglycemia, results should be confirmed by repeat testing. In a patient with classic symptoms of hyperglycemia or hyperglycemic crisis, random plasma glucose results greater than or equal to 200 mg/dL meet the criteria for diagnosis of diabetes.Reference: Standards of Medical Care in Diabetes 2016, [place] [employer]. Diabetes Care. 2016.39(Suppl 1). Performed By: #### 2 4323-8 ####[facility] LABCLIA [id number] [place] [address] Potassium [Moles/Vol] 4.3 mmol/L Normal 3.7-5.1 [facility] Comment on above: Order Comment: Speci men Type: BLOOD SPECIMENOrdering Facility: [facility] Address: [address] [place] [address] Performed By: #### 2 4323-8 ####[facility] LABCLIA [id number] [place] [address] Protein [Mass/Vol] 7.5 g/dL Normal 6.3-8.0 [facility] Comment on above: Order Comment: Speci men Type: BLOOD SPECIMENOrdering Facility: [facility] Address: [address] [place] [address] Performed By: #### 2 4323-8 ####[facility] LABCLIA [id number] [place] [address] Sodium [Moles/Vol] 135 mmol/L Low 136-144 [facility] Comment on above: Order Comment: Speci men Type: BLOOD SPECIMENOrdering Facility: [facility] Address: [address] [place] [address] Performed By: #### 2 4323-8 ####[facility] LABCLIA [id number] [place] [address] Urea nitrogen [Mass/Vol] 19 mg/dL Normal 9-24 [facility] Comment on above: Order Comment: Speci men Type: BLOOD SPECIMENOrdering Facility: [facility] Address: [address] [place] [address] Performed By: #### 2 4323-8 ####[facility] LABCLIA [id number] [place] [address] Albumin [Mass/Vol] 4.3 g/dL 3.9 - 4.9 g/dL [facility] ALP [Catalytic activity/Vol] 131 U/L High 38 - 113 U/L [facility] ALT [Catalytic activity/Vol] 26 U/L 10 - 54 U/L [facility] Anion gap [Moles/Vol] 10 mmol/L 9 - 18 mmol/L [facility] AST [Catalytic activity/Vol] 28 U/L 14 - 40 U/L [facility] Bilirubin [Mass/Vol] 1.3 mg/dL 0.2 - 1.3 mg/dL [facility] Calcium [Mass/Vol] 11.1 mg/dL High 8.5 - 10. 2 mg/dL [facility] Chloride [Moles/Vol] 101 mmol/L 97 - 105 mmol/L [facility] CO2 [Moles/Vol] 24 mmol/L 22 - 30 mmol/L [facility] Creatinine [Mass/Vol] 0.87 mg/dL 0.73 - 1.22 mg/dL [facility] Estimated Glomerular Filtration Rate 92 mL/min/1.73m >=60 mL/min/1.73m [facility] Glucose [Mass/Vol] 154 mg/dL High 74 - 99 mg/dL [facility] Potassium [Moles/Vol] 4.3 mmol/L 3.7 - 5.1 mmol/L [facility] Protein [Mass/Vol] 7.5 g/dL 6.3 - 8.0 g/dL [facility] Sodium [Moles/Vol] 135 mmol/L Low 136 - 144 mmol/L [facility] Urea nitrogen [Mass/Vol] 19 mg/dL 9 - 24 mg/dL [facility] CNPNon [address] [facility] [facility] CBC W Auto Differential pane l (Bld)on 04-05-2023 Basophils (Bld) [#/Vol] 0.05 10*3/uL Normal <0.11 [facility] Comment on above: Order Comment: Speci men Type: BLOOD SPECIMENOrdering Facility: [facility] Address: [address] [place] [address] Performed By: #### 5 7021-8 ####[facility] LABCLIA [id number] [place] [address] Basophils/100 WBC (Bld) 0.5 % Normal [facility] Comment on above: Order Comment: Speci men Type: BLOOD SPECIMENOrdering Facility: [facility] Address: [address] [place] [address] Performed By: #### 5 7021-8 ####[facility] LABCLIA [id number] [place] [address] Differential cell count method Nom (Bld) Auto Normal [facility] Comment on above: Order Comment: Speci men Type: BLOOD SPECIMENOrdering Facility: [facility] Address: [address] [place] [address] Performed By: #### 5 7021-8 ####[facility] LABCLIA [id number] [place] [address] Eosinophils (Bld) [#/Vol] 10*3/uL Normal <0.46 [facility] Comment on above: Order Comment: Speci men Type: BLOOD SPECIMENOrdering Facility: [facility] Address: [address] [place] [address] Performed By: #### 5 7021-8 ####[facility] LABCLIA [id number] [place] [address] Eosinophils/100 WBC (Bld) 0.2 % Normal [facility] Comment on above: Order Comment: Speci men Type: BLOOD SPECIMENOrdering Facility: [facility] Address: [address] [place] [address] Performed By: #### 5 7021-8 ####[facility] LABCLIA [id number] [place] [address] Erythrocyte distribution width (RBC) [Ratio] 15.3 % High 11.5-15.0 [facility] Comment on above: Order Comment: Speci men Type: BLOOD SPECIMENOrdering Facility: [facility] Address: [address] [place] [address] Performed By: #### 5 7021-8 ####[facility] LABIA [id number] [place] [address] Hematocrit (Bld) [Volume fraction] 30.3 % Low 39.0-51.0 [facility] Comment on above: Order Comment: Speci men Type: BLOOD SPECIMENOrdering Facility: [facility] Address: [address] [place] [address] Performed By: #### 5 7021-8 ####[facility] LABCLIA [id number] [place] [address] Hemoglobin (Bld) [Mass/Vol] 10.0 g/dL Low 13.0-17.0 [facility] Comment on above: Order Comment: Speci men Type: BLOOD SPECIMENOrdering Facility: [facility] Address: [address] [place] [address] Performed By: #### 5 7021-8 ####[facility] LABCLIA [id number] [place] [address] Immature granulocytes (Bld) [#/Vol] 0.04 10*3/uL Normal <0.10 [facility] Comment on above: Order Comment: Speci men Type: BLOOD SPECIMENOrdering Facility: [facility] Address: [address] [place] [address] Performed By: #### 5 7021-8 ####[facility] LABIA [id number] [place] [address] Immature granulocytes/100 WBC (Bld) 0.4 % Normal [facility] Comment on above: Order Comment: Speci men Type: BLOOD SPECIMENOrdering Facility: [facility] Address: [address] [place] [address] Performed By: #### 5 7021-8 ####[facility] LABCLIA [id number] [place] [address] Lymphocytes (Bld) [#/Vol] 1.63 10*3/uL Normal 1.00-4.00 [facility] Comment on above: Order Comment: Speci men Type: BLOOD SPECIMENOrdering Facility: [facility] Address: [address] [place] [address] Performed By: #### 5 7021-8 ####[facility] LABCLIA [id number] [place] [address] Lymphocytes/100 WBC (Bld) 15.5 % Normal [facility] Comment on above: Order Comment: Speci men Type: BLOOD SPECIMENOrdering Facility: [facility] Address: [address] [place] [address] Performed By: #### 5 7021-8 ####[facility] LABCLIA [id number] [place] [address] MCH (RBC) [Entitic mass] 32.3 pg Normal 26.0-34.0 [facility] Comment on above: Order Comment: Speci men Type: BLOOD SPECIMENOrdering Facility: [facility] Address: [address] [place] [address] Performed By: #### 5 7021-8 ####[facility] LABCLIA [id number] [place] [address] MCHC (RBC) [Mass/Vol] 33.0 g/dL Normal 30.5-36.0 [facility] Comment on above: Order Comment: Speci men Type: BLOOD SPECIMENOrdering Facility: [facility] Address: [address] [place] [address] Performed By: #### 5 7021-8 ####[facility] LABCLIA [id number] [place] [address] MCV (RBC) [Entitic vol] 97.7 fL Normal 80.0-100.0 [facility] Comment on above: Order Comment: Speci men Type: BLOOD SPECIMENOrdering Facility: [facility] Address: [address] [place] [address] Performed By: #### 5 7021-8 ####[facility] LABCLIA [id number] [place] [address] Monocytes (Bld) [#/Vol] 0.21 10*3/uL Normal <0.87 [facility] Comment on above: Order Comment: Speci men Type: BLOOD SPECIMENOrdering Facility: [facility] Address: [address] [place] [address] Performed By: #### 5 7021-8 ####[facility] LABCLIA [id number] [place] [address] Monocytes/100 WBC (Bld) 2.0 % Normal [facility] Comment on above: Order Comment: Speci men Type: BLOOD SPECIMENOrdering Facility: [facility] Address: [address] [place] [address] Performed By: #### 5 7021-8 ####[facility] LABCLIA [id number] [place] [address] Neutrophils (Bld) [#/Vol] 8.60 10*3/uL High 1.45-7.50 [facility] Comment on above: Order Comment: Speci men Type: BLOOD SPECIMENOrdering Facility: [facility] Address: [address] [place] [address] Performed By: #### 5 7021-8 ####[facility] LABCLIA [id number] [place] [address] Neutrophils/100 WBC (Bld) 81.4 % Normal [facility] Comment on above: Order Comment: Speci men Type: BLOOD SPECIMENOrdering Facility: [facility] Address: [address] [place] [address] Performed By: #### 5 7021-8 ####[facility] LABCLIA [id number] [place] [address] Nucleated RBC (Bld) [#/Vol] 10*3/uL Normal <0.01 [facility] Comment on above: Order Comment: Speci men Type: BLOOD SPECIMENOrdering Facility: [facility] Address: [address] [place] [address] Performed By: #### 5 7021-8 ####[facility] LABCLIA [id number] [place] [address] Nucleated RBC/100 WBC (Bld) [Ratio] 0.0 /[address] [facility] Comment on above: Order Comment: Speci men Type: BLOOD SPECIMENOrdering Facility: [facility] Address: [address] [place] [address] Performed By: #### 5 7021-8 ####[facility] LABCLIA [id number] [place] [address] Platelet mean volume (Bld) [Entitic vol] 9.7 fL Normal 9.0-12.7 [facility] Comment on above: Order Comment: Speci men Type: BLOOD SPECIMENOrdering Facility: [facility] Address: [address] [place] [address] Performed By: #### 5 7021-8 ####[facility] LABCLIA [id number] [place] [address] Platelets (Bld) [#/Vol] 271 10*3/uL Normal 150-400 [facility] Comment on above: Order Comment: Speci men Type: BLOOD SPECIMENOrdering Facility: [facility] Address: [address] [place] [address] Performed By: #### 5 7021-8 ####[facility] LABCLIA [id number] [place] [address] RBC (Bld) [#/Vol] 3.10 10*6/uL Low 4.20-6.00 [facility] Comment on above: Order Comment: Speci men Type: BLOOD SPECIMENOrdering Facility: [facility] Address: [address] [place] [address] Performed By: #### 5 7021-8 ####[facility] LABCLIA [id number] [place] [address] WBC (Bld) [#/Vol] 10.55 10*3/uL Normal 3.70-11.00 [facility] Comment on above: Order Comment: Speci men Type: BLOOD SPECIMENOrdering Facility: [facility] Address: [address] [place] [address] Performed By: #### 5 7021-8 ####[facility] LABCLIA [id number] [place] [address] Basophils (Bld) [#/Vol] 0.05 10*3/uL <0.11 k/uL [facility] Basophils/100 WBC (Bld) 0.5 % [facility] Differential cell count method Nom (Bld) Auto [facility] Eosinophils (Bld) [#/Vol] <0.46 k/uL [facility] Eosinophils/100 WBC (Bld) 0.2 % [facility] Erythrocyte distribution width (RBC) [Ratio] 15.3 % High 11.5 - 15.0 % [facility] Hematocrit (Bld) [Volume fraction] 30.3 % Low 39.0 - 51.0 % [facility] Hemoglobin (Bld) [Mass/Vol] 10.0 g/dL Low 13.0 - 17.0 g/dL [facility] Immature granulocytes (Bld) [#/Vol] 0.04 10*3/uL <0.10 k/uL [facility] Immature granulocytes/100 WBC (Bld) 0.4 % [facility] Lymphocytes (Bld) [#/Vol] 1.63 10*3/uL 1.00 - 4.00 k/uL [facility] Lymphocytes/100 WBC (Bld) 15.5 % [facility] MCH (RBC) [Entitic mass] 32.3 pg 26.0 - 34.0 pg [facility] MCHC (RBC) [Mass/Vol] 33.0 g/dL 30.5 - 36.0 g/dL [facility] MCV (RBC) [Entitic vol] 97.7 fL 80.0 - 100.0 fL [facility] Monocytes (Bld) [#/Vol] 0.21 10*3/uL <0.87 k/uL [facility] Monocytes/100 WBC (Bld) 2.0 % [facility] Neutrophils (Bld) [#/Vol] 8.60 10*3/uL High 1.45 - 7.50 k/uL [facility] Neutrophils/100 WBC (Bld) 81.4 % [facility] Nucleated RBC (Bld) [#/Vol] <0.01 k/uL [facility] Nucleated RBC/100 WBC (Bld) [Ratio] 0.0 /100 WBC [facility] Platelet mean volume (Bld) [Entitic vol] 9.7 fL 9.0 - 12.7 fL [facility] Platelets (Bld) [#/Vol] 271 10*3/uL 150 - 400 k/uL [facility] RBC (Bld) [#/Vol] 3.10 10*6/uL Low 4.20 - 6.0 0 m/uL [facility] WBC (Bld) [#/Vol] 10.55 10*3/uL 3.70 - 11 .00 k/uL [facility] CNOVSPon 04-05-[address] [facility] Cancer Ag19-9 SerPl-aCncon 1 06-05-2022 Cancer Ag 19-9 Qn 1648.0 [arb'U]/mL High <36.0 [facility] Comment on above: Order Comment: Speci men Type: BLOOD SPECIMENOrdering Facility: [facility] Address: [address] [place] [address] Result Comment: [facility] er antigen 19-9 test is used as an aid in monitoring response to treatment or recurrence in patients with established pancreatic, hepatobiliary, or gastrointestinal malignancies. Clinical correlation is required.The [place] 19-9 Antigen test was performed using the [employer] DXI paramagnetic particle chemiluminescent immunoassay method. Results obtained with different assay methods or kits cannot be used interchangeably. Performed By: #### 2 4108-3 ####[facility] LABCLIA [id number] [place] [address] [place] [facility] Comprehensive metabolic 2000 panelon 04-05-2023 Albumin [Mass/Vol] 4.2 g/dL Normal 3.9-4.9 [facility] Comment on above: Order Comment: Speci men Type: BLOOD SPECIMENOrdering Facility: [facility] Address: [address] [place] [address] Performed By: #### 2 4323-8 ####[facility] LABCLIA [id number] [place] [address] ALP [Catalytic activity/Vol] 112 U/L Normal 38-113 [facility] Comment on above: Order Comment: Speci men Type: BLOOD SPECIMENOrdering Facility: [facility] Address: [address] [place] [address] Performed By: #### 2 4323-8 ####[facility] LABCLIA [id number] [place] [address] ALT [Catalytic activity/Vol] 18 U/L Normal 10-54 [facility] Comment on above: Order Comment: Speci men Type: BLOOD SPECIMENOrdering Facility: [facility] Address: [address] [place] [address] Performed By: #### 2 4323-8 ####[facility] LABCLIA [id number] [place] [address] Anion gap [Moles/Vol] 8 mmol/L Low 9-18 [facility] Comment on above: Order Comment: Speci men Type: BLOOD SPECIMENOrdering Facility: [facility] Address: [address] [place] [address] Performed By: #### 2 4323-8 ####[facility] LABCLIA [id number] [place] [address] AST [Catalytic activity/Vol] 21 U/L Normal 14-40 [facility] Comment on above: Order Comment: Speci men Type: BLOOD SPECIMENOrdering Facility: [facility] Address: [address] [place] [address] Performed By: #### 2 4323-8 ####[facility] LABCLIA [id number] [place] [address] Bilirubin [Mass/Vol] 1.2 mg/dL Normal 0.2-1.3 [facility] Comment on above: Order Comment: Speci men Type: BLOOD SPECIMENOrdering Facility: [facility] Address: [address] [place] [address] Performed By: #### 2 4323-8 ####[facility] LABCLIA [id number] [place] [address] Calcium [Mass/Vol] 10.9 mg/dL High 8.5-10.2 [facility] Comment on above: Order Comment: Speci men Type: BLOOD SPECIMENOrdering Facility: [facility] Address: [address] [place] [address] Performed By: #### 2 4323-8 ####[facility] LABCLIA [id number] [place] [address] Chloride [Moles/Vol] 101 mmol/L Normal 97-105 [facility] Comment on above: Order Comment: Speci men Type: BLOOD SPECIMENOrdering Facility: [facility] Address: [address] [place] [address] Performed By: #### 2 4323-8 ####[facility] LABCLIA [id number] [place] [address] CO2 [Moles/Vol] 25 mmol/L Normal 22-30 [facility] Comment on above: Order Comment: Speci men Type: BLOOD SPECIMENOrdering Facility: [facility] Address: [address] [place] [address] Performed By: #### 2 4323-8 ####[facility] LABCLIA [id number] [place] [address] Creatinine [Mass/Vol] 0.79 mg/dL Normal 0.73-1.22 [facility] Comment on above: Order Comment: Speci men Type: BLOOD SPECIMENOrdering Facility: [facility] Address: [address] [place] [address] Performed By: #### 2 4323-8 ####[facility] LABCLIA [id number] [place] [address] Creatinine and Glomerular filtration rate.predicted panel (S/P/Bld) 95 mL/min/1.73m??? Normal >=60 [facility] Comment on above: Order Comment: Speci men Type: BLOOD SPECIMENOrdering Facility: [facility] Address: [address] [place] [address] Result Comment: Kathy mated Glomerular Filtration Rate (eGFR) is calculated using the 2020 CKD-EPI creatinine equation. This equation utilizes serum creatinine, sex, and age as parameters. The creatinine assay has traceable calibration to isotope dilution-mass spectrometry. Refer to KDIGO guidelines for clinical interpretation. In patients with unstable renal function, e.g. those with acute kidney injury, the eGFR may not accurately reflect actual GFR. Performed By: #### 2 4323-8 ####[facility] LABCLIA [id number] [place] [address] Glucose [Mass/Vol] 122 mg/dL High 74-99 [facility] Comment on above: Order Comment: Speci men Type: BLOOD SPECIMENOrdering Facility: [facility] Address: [address] [place], [place] [address] Result Comment: The [place] [employer] (ADA) provides guidance for cutoff values for fasting glucose and random glucose. The ADA defines fasting as no caloric intake for at least 8 hours. Fasting plasma glucose results between 100 to 125 mg/dL indicate increased risk for diabetes (prediabetes).Fasting plasma glucose results greater than or equal to 126 mg/dL meet the criteria for diagnosis of diabetes. In the absence of unequivocal hyperglycemia, results should be confirmed by repeat testing. In a patient with classic symptoms of hyperglycemia or hyperglycemic crisis, random plasma glucose results greater than or equal to 200 mg/dL meet the criteria for diagnosis of diabetes.Reference: Standards of Medical Care in Diabetes 2016, [place] [employer]. Diabetes Care. 2016.39(Suppl 1). Performed By: #### 2 4323-8 ####[facility] LABCLIA [id number] [place] [address] Potassium [Moles/Vol] 4.1 mmol/L Normal 3.7-5.1 [facility] Comment on above: Order Comment: Speci men Type: BLOOD SPECIMENOrdering Facility: [facility] Address: [address] [place] [address] Performed By: #### 2 4323-8 ####[facility] LABCLIA [id number] [place] [address] Protein [Mass/Vol] 7.1 g/dL Normal 6.3-8.0 [facility] Comment on above: Order Comment: Speci men Type: BLOOD SPECIMENOrdering Facility: [facility] Address: [address] [place] [address] [place] [id number] Performed By: #### 2 4323-8 ####[facility] LABCLIA [id number] [place] [address] Sodium [Moles/Vol] 134 mmol/L Low 136-144 [facility] Comment on above: Order Comment: Speci men Type: BLOOD SPECIMENOrdering Facility: [facility] Address: [address] [place] [address] Performed By: #### 2 4323-8 ####[facility] LABCLIA [id number] [place] [address] Urea nitrogen [Mass/Vol] 21 mg/dL Normal 9-24 [facility] Comment on above: Order Comment: Speci men Type: BLOOD SPECIMENOrdering Facility: [facility] Address: [address] [place] [address] Performed By: #### 2 4323-8 ####[facility] LABCLIA [id number] [place] [address] Albumin [Mass/Vol] 4.2 g/dL 3.9 - 4.9 g/dL [facility] ALP [Catalytic activity/Vol] 112 U/L 38 - 113 U/L [facility] ALT [Catalytic activity/Vol] 18 U/L 10 - 54 U/L [facility] Anion gap [Moles/Vol] 8 mmol/L Low 9 - 18 mmol/L [facility] AST [Catalytic activity/Vol] 21 U/L 14 - 40 U/L [facility] Bilirubin [Mass/Vol] 1.2 mg/dL 0.2 - 1.3 mg/dL [facility] Calcium [Mass/Vol] 10.9 mg/dL High 8.5 - 10. 2 mg/dL [facility] Chloride [Moles/Vol] 101 mmol/L 97 - 105 mmol/L [facility] CO2 [Moles/Vol] 25 mmol/L 22 - 30 mmol/L [facility] Creatinine [Mass/Vol] 0.79 mg/dL 0.73 - 1.22 mg/dL [facility] Estimated Glomerular Filtration Rate 95 mL/min/1.73m >=60 mL/min/1.73m [facility] Glucose [Mass/Vol] 122 mg/dL High 74 - 99 mg/dL [facility] Potassium [Moles/Vol] 4.1 mmol/L 3.7 - 5.1 mmol/L [facility] Protein [Mass/Vol] 7.1 g/dL 6.3 - 8.0 g/dL [facility] Sodium [Moles/Vol] 134 mmol/L Low 136 - 144 mmol/L [facility] Urea nitrogen [Mass/Vol] 21 mg/dL 9 - 24 mg/dL [facility] CNPNon 04-04-[address] [facility] CBC W Auto Differential pane l (Bld)on 03-30-2023 Basophils (Bld) [#/Vol] 0.04 10*3/uL Normal <0.11 [facility] Comment on above: Order Comment: Speci men Type: BLOOD SPECIMENOrdering Facility: [facility] Address: [address] [place] [address] Performed By: #### 5 7021-8 ####[facility] LABCLIA [id number] [place] [address] Basophils/100 WBC (Bld) 0.5 % Normal [facility] Comment on above: Order Comment: Speci men Type: BLOOD SPECIMENOrdering Facility: [facility] Address: [address] [place] [address] Performed By: #### 5 7021-8 ####[facility] LABCLIA [id number] [place] [address] Differential cell count method Nom (Bld) Auto Normal [facility] Comment on above: Order Comment: Speci men Type: BLOOD SPECIMENOrdering Facility: [facility] Address: [address] [place] [address] Performed By: #### 5 7021-8 ####[facility] LABCLIA [id number] [place] [address] Eosinophils (Bld) [#/Vol] 0.03 10*3/uL Normal <0.46 [facility] Comment on above: Order Comment: Speci men Type: BLOOD SPECIMENOrdering Facility: [facility] Address: [address] [place] [address] Performed By: #### 5 7021-8 ####[facility] LABCLIA [id number] [place] [address] Eosinophils/100 WBC (Bld) 0.4 % Normal [facility] Comment on above: Order Comment: Speci men Type: BLOOD SPECIMENOrdering Facility: [facility] Address: [address] [place] [address] Performed By: #### 5 7021-8 ####[facility] LABCLIA [id number] [place] [address] Erythrocyte distribution width (RBC) [Ratio] 16.0 % High 11.5-15.0 [facility] Comment on above: Order Comment: Speci men Type: BLOOD SPECIMENOrdering Facility: [facility] Address: [address] [place] [address] Performed By: #### 5 7021-8 ####[facility] LABCLIA [id number] [place] [address] Hematocrit (Bld) [Volume fraction] 35.6 % Low 39.0-51.0 [facility] Comment on above: Order Comment: Speci men Type: BLOOD SPECIMENOrdering Facility: [facility] Address: [address] [place] [address] Performed By: #### 5 7021-8 ####[facility] LABCLIA [id number] [place] [address] Hemoglobin (Bld) [Mass/Vol] 11.2 g/dL Low 13.0-17.0 [facility] Comment on above: Order Comment: Speci men Type: BLOOD SPECIMENOrdering Facility: [facility] Address: [address] [place] [address] Performed By: #### 5 7021-8 ####[facility] LABCLIA [id number] [place] [address] Immature granulocytes (Bld) [#/Vol] 0.07 10*3/uL Normal <0.10 [facility] Comment on above: Order Comment: Speci men Type: BLOOD SPECIMENOrdering Facility: [facility] Address: [address] [place] [address] Performed By: #### 5 7021-8 ####[facility] LABCLIA [id number] [place] [address] Immature granulocytes/100 WBC (Bld) 0.9 % Normal [facility] Comment on above: Order Comment: Speci men Type: BLOOD SPECIMENOrdering Facility: [facility] Address: [address] [place] [address] Performed By: #### 5 7021-8 ####[facility] LABCLIA [id number] [place] [address] Lymphocytes (Bld) [#/Vol] 1.68 10*3/uL Normal 1.00-4.00 [facility] Comment on above: Order Comment: Speci men Type: BLOOD SPECIMENOrdering Facility: [facility] Address: [address] [place] [address] Performed By: #### 5 7021-8 ####[facility] LABCLIA [id number] [place] [address] Lymphocytes/100 WBC (Bld) 21.3 % Normal [facility] Comment on above: Order Comment: Speci men Type: BLOOD SPECIMENOrdering Facility: [facility] Address: [address] [place] [address] Performed By: #### 5 7021-8 ####[facility] LABCLIA [id number] [place] [address] MCH (RBC) [Entitic mass] 31.5 pg Normal 26.0-34.0 [facility] Comment on above: Order Comment: Speci men Type: BLOOD SPECIMENOrdering Facility: [facility] Address: [address] [place] [address] Performed By: #### 5 7021-8 ####[facility] LABCLIA [id number] [place] [address] MCHC (RBC) [Mass/Vol] 31.5 g/dL Normal 30.5-36.0 [facility] Comment on above: Order Comment: Speci men Type: BLOOD SPECIMENOrdering Facility: [facility] Address: [address] [place] [address] Performed By: #### 5 7021-8 ####[facility] LABCLIA [id number] [place] [address] MCV (RBC) [Entitic vol] 100.0 fL Normal 80.0-100.0 [facility] Comment on above: Order Comment: Speci men Type: BLOOD SPECIMENOrdering Facility: [facility] Address: [address] [place] [address] Performed By: #### 5 7021-8 ####[facility] LABCLIA [id number] [place] [address] Monocytes (Bld) [#/Vol] 0.82 10*3/uL Normal <0.87 [facility] Comment on above: Order Comment: Speci men Type: BLOOD SPECIMENOrdering Facility: [facility] Address: [address] [place] [address] Performed By: #### 5 7021-8 ####[facility] LABCLIA [id number] [place] [address] Monocytes/100 WBC (Bld) 10.4 % Normal [facility] Comment on above: Order Comment: Speci men Type: BLOOD SPECIMENOrdering Facility: [facility] Address: [address] [place] [address] Performed By: #### 5 7021-8 ####[facility] LABCLIA [id number] [place] [address] Neutrophils (Bld) [#/Vol] 5.24 10*3/uL Normal 1.45-7.50 [facility] Comment on above: Order Comment: Speci men Type: BLOOD SPECIMENOrdering Facility: [facility] Address: [address] [place] [address] Performed By: #### 5 7021-8 ####[facility] LABCLIA [id number] [place] [address] Neutrophils/100 WBC (Bld) 66.5 % Normal [facility] Comment on above: Order Comment: Speci men Type: BLOOD SPECIMENOrdering Facility: [facility] Address: [address] [place] [address] Performed By: #### 5 7021-8 ####[facility] LABCLIA [id number] [place] [address] Nucleated RBC (Bld) [#/Vol] 10*3/uL Normal <0.01 [facility] Comment on above: Order Comment: Speci men Type: BLOOD SPECIMENOrdering Facility: [facility] Address: [address] [place] [address] Performed By: #### 5 7021-8 ####[facility] LABCLIA [id number] [place] [address] Nucleated RBC/100 WBC (Bld) [Ratio] 0.0 /[address] [facility] Comment on above: Order Comment: Speci men Type: BLOOD SPECIMENOrdering Facility: [facility] Address: [address] [place] [address] Performed By: #### 5 7021-8 ####[facility] LABCLIA [id number] [place] [address] Platelet mean volume (Bld) [Entitic vol] 9.5 fL Normal 9.0-12.7 [facility] Comment on above: Order Comment: Speci men Type: BLOOD SPECIMENOrdering Facility: [facility] Address: [address] [place] [address] Performed By: #### 5 7021-8 ####[facility] LABCLIA [id number] [place] [address] Platelets (Bld) [#/Vol] 479 10*3/uL High 150-400 [facility] Comment on above: Order Comment: Speci men Type: BLOOD SPECIMENOrdering Facility: [facility] Address: [address] [place] [address] Performed By: #### 5 7021-8 ####[facility] LABCLIA [id number] [place] [address] RBC (Bld) [#/Vol] 3.56 10*6/uL Low 4.20-6.00 [facility] Comment on above: Order Comment: Speci men Type: BLOOD SPECIMENOrdering Facility: [facility] Address: [address] [place] [address] Performed By: #### 5 7021-8 ####[facility] LABCLIA [id number] [place] [address] WBC (Bld) [#/Vol] 7.88 10*3/uL Normal 3.70-11.00 [facility] Comment on above: Order Comment: Speci men Type: BLOOD SPECIMENOrdering Facility: [facility] Address: [address] [place] [address] Performed By: #### 5 7021-8 ####[facility] LABCLIA [id number] [place] [address] CNOVSPon 03-30-[address] [facility] Cancer Ag19-9 SerPl-aCncon 1 05-30-2022 Cancer Ag 19-9 Qn 2555.0 [arb'U]/mL High <36.0 [facility] Comment on above: Order Comment: Speci men Type: BLOOD SPECIMENOrdering Facility: [facility] Address: [address] [place] [address] Result Comment: [facility] er antigen 19-9 test is used as an aid in monitoring response to treatment or recurrence in patients with established pancreatic, hepatobiliary, or gastrointestinal malignancies. Clinical correlation is required.The CA 19-9 Antigen test was performed using the [employer] DXI paramagnetic particle chemiluminescent immunoassay method. Results obtained with different assay methods or kits cannot be used interchangeably. Performed By: #### 2 4108-3 ####[facility] LABCLIA [id number] [facility] [place] [address] [facility] Comprehensive metabolic 2000 panelon 03-30-2023 Albumin [Mass/Vol] 4.2 g/dL Normal 3.9-4.9 [facility] Comment on above: Order Comment: Speci men Type: BLOOD SPECIMENOrdering Facility: [facility] Address: [address] [place] [address] Performed By: #### 2 4323-8 ####[facility] LABCLIA [id number] [place] [address] ALP [Catalytic activity/Vol] 124 U/L High 38-113 [facility] Comment on above: Order Comment: Speci men Type: BLOOD SPECIMENOrdering Facility: [facility] Address: [address] [place] [address] Performed By: #### 2 4323-8 ####[facility] LABCLIA [id number] [place] [address] ALT [Catalytic activity/Vol] 20 U/L Normal 10-54 [facility] Comment on above: Order Comment: Speci men Type: BLOOD SPECIMENOrdering Facility: [facility] Address: [address] [place] [address] Performed By: #### 2 4323-8 ####[facility] LABCLIA [id number] [place] [address] Anion gap [Moles/Vol] 7 mmol/L Low 9-18 [facility] Comment on above: Order Comment: Speci men Type: BLOOD SPECIMENOrdering Facility: [facility] Address: [address] [place] [address] Performed By: #### 2 4323-8 ####[facility] LABCLIA [id number] [place] [address] AST [Catalytic activity/Vol] 20 U/L Normal 14-40 [facility] Comment on above: Order Comment: Speci men Type: BLOOD SPECIMENOrdering Facility: [facility] Address: [address] [place] [address] Performed By: #### 2 4323-8 ####[facility] LABCLIA [id number] [place] [address] Bilirubin [Mass/Vol] 1.0 mg/dL Normal 0.2-1.3 [facility] Comment on above: Order Comment: Speci men Type: BLOOD SPECIMENOrdering Facility: [facility] Address: [address] [place] [address] Performed By: #### 2 4323-8 ####[facility] LABCLIA [id number] [place] [address] Calcium [Mass/Vol] 10.5 mg/dL High 8.5-10.2 [facility] Comment on above: Order Comment: Speci men Type: BLOOD SPECIMENOrdering Facility: [facility] Address: [address] [place] [address] Performed By: #### 2 4323-8 ####[facility] LABCLIA [id number] [place] [address] Chloride [Moles/Vol] 104 mmol/L Normal 97-105 [facility] Comment on above: Order Comment: Speci men Type: BLOOD SPECIMENOrdering Facility: [facility] Address: [address] [place] [address] Performed By: #### 2 4323-8 ####[facility] LABCLIA [id number] [place] [address] CO2 [Moles/Vol] 26 mmol/L Normal 22-30 [facility] Comment on above: Order Comment: Speci men Type: BLOOD SPECIMENOrdering Facility: [facility] Address: [address] [place] [address] Performed By: #### 2 4323-8 ####[facility] LABCLIA [id number] [place] [address] Creatinine [Mass/Vol] 0.78 mg/dL Normal 0.73-1.22 [facility] Comment on above: Order Comment: Noemí hoff Type: BLOOD SPECIMENOrdering Facility: [facility] Address: [address] [place] [address] Performed By: #### 2 4323-8 ####[facility] LABCLIA [id number] [place] [address] Creatinine and Glomerular filtration rate.predicted panel (S/P/Bld) 95 mL/min/1.73m??? Normal >=60 [facility] Comment on above: Order Comment: Noemí hoff Type: BLOOD SPECIMENOrdering Facility: [facility] Address: [address] [place] [address] Result Comment: Kathy mated Glomerular Filtration Rate (eGFR) is calculated using the 2020 CKD-EPI creatinine equation. This equation utilizes serum creatinine, sex, and age as parameters. The creatinine assay has traceable calibration to isotope dilution-mass spectrometry. Refer to KDIGO guidelines for clinical interpretation. In patients with unstable renal function, e.g. those with acute kidney injury, the eGFR may not accurately reflect actual GFR. Performed By: #### 2 4323-8 ####[facility] LABIA [id number] [place] [address] Glucose [Mass/Vol] 137 mg/dL High 74-99 [facility] Comment on above: Order Comment: Noemí hoff Type: BLOOD SPECIMENOrdering Facility: [facility] Address: [address] [place] [address] Result Comment: The [place] [employer] (ADA) provides guidance for cutoff values for fasting glucose and random glucose. The ADA defines fasting as no caloric intake for at least 8 hours. Fasting plasma glucose results between 100 to 125 mg/dL indicate increased risk for diabetes (prediabetes).Fasting plasma glucose results greater than or equal to 126 mg/dL meet the criteria for diagnosis of diabetes. In the absence of unequivocal hyperglycemia, results should be confirmed by repeat testing. In a patient with classic symptoms of hyperglycemia or hyperglycemic crisis, random plasma glucose results greater than or equal to 200 mg/dL meet the criteria for diagnosis of diabetes.Reference: Standards of Medical Care in Diabetes 2016, [place] [employer]. Diabetes Care. 2016.39(Suppl 1). Performed By: #### 2 4323-8 ####[facility] LABCLIA [id number] [place] [address] Potassium [Moles/Vol] 4.6 mmol/L Normal 3.7-5.1 [facility] Comment on above: Order Comment: Speci men Type: BLOOD SPECIMENOrdering Facility: [facility] Address: [address] [place] [address] Performed By: #### 2 4323-8 ####[facility] LABCLIA [id number] [place] [address] Protein [Mass/Vol] 7.0 g/dL Normal 6.3-8.0 [facility] Comment on above: Order Comment: Speci men Type: BLOOD SPECIMENOrdering Facility: [facility] Address: [address] [place] [address] Performed By: #### 2 4323-8 ####[facility] LABCLIA [id number] [place] [address] Sodium [Moles/Vol] 137 mmol/L Normal 136-144 [facility] Comment on above: Order Comment: Speci men Type: BLOOD SPECIMENOrdering Facility: [facility] Address: [address] [place] [address] Performed By: #### 2 4323-8 ####[facility] LABCLIA [id number] [place] [address] Urea nitrogen [Mass/Vol] 20 mg/dL Normal 9-24 [facility] Comment on above: Order Comment: Speci men Type: BLOOD SPECIMENOrdering Facility: [facility] Address: [address] [place] [address] Performed By: #### 2 4323-8 ####[facility] LABCLIA [id number] [place] [address] CBC W Auto Differential pane l (Bld)on 03-08-2023 Basophils (Bld) [#/Vol] 0.04 10*3/uL Normal <0.11 [facility] Comment on above: Order Comment: Speci men Type: BLOOD SPECIMENOrdering Facility: [facility] Address: [address] [place] [address] Performed By: #### 5 7021-8 ####[facility] LABCLIA [id number] [place] [address] Basophils/100 WBC (Bld) 0.9 % Normal [facility] Comment on above: Order Comment: Speci men Type: BLOOD SPECIMENOrdering Facility: [facility] Address: [address] [place] [address] Performed By: #### 5 7021-8 ####[facility] LABCLIA [id number] [place] [address] Differential cell count method Nom (Bld) Auto Normal [facility] Comment on above: Order Comment: Speci men Type: BLOOD SPECIMENOrdering Facility: [facility] Address: [address] [place] [address] Performed By: #### 5 7021-8 ####[facility] LABCLIA [id number] [place] [address] Eosinophils (Bld) [#/Vol] 10*3/uL Normal <0.46 [facility] Comment on above: Order Comment: Speci men Type: BLOOD SPECIMENOrdering Facility: [facility] Address: [address] [place] [address] Performed By: #### 5 7021-8 ####[facility] LABCLIA [id number] [place] [address] Eosinophils/100 WBC (Bld) 0.2 % Normal [facility] Comment on above: Order Comment: Speci men Type: BLOOD SPECIMENOrdering Facility: [facility] Address: [address] [place] [address] Performed By: #### 5 7021-8 ####[facility] LABCLIA [id number] [place] [address] Erythrocyte distribution width (RBC) [Ratio] 14.8 % Normal 11.5-15.0 [facility] Comment on above: Order Comment: Speci men Type: BLOOD SPECIMENOrdering Facility: [facility] Address: [address] [place] [address] Performed By: #### 5 7021-8 ####[facility] LABCLIA [id number] [place] [address] Hematocrit (Bld) [Volume fraction] 31.4 % Low 39.0-51.0 [facility] Comment on above: Order Comment: Speci men Type: BLOOD SPECIMENOrdering Facility: [facility] Address: [address] [place] [address] Performed By: #### 5 7021-8 ####[facility] LABCLIA [id number] [place] [address] Hemoglobin (Bld) [Mass/Vol] 10.2 g/dL Low 13.0-17.0 [facility] Comment on above: Order Comment: Speci men Type: BLOOD SPECIMENOrdering Facility: [facility] Address: [address] [place] [address] Performed By: #### 5 7021-8 ####[facility] LABCLIA [id number] [place] [address] Immature granulocytes (Bld) [#/Vol] 0.05 10*3/uL Normal <0.10 [facility] Comment on above: Order Comment: Speci men Type: BLOOD SPECIMENOrdering Facility: [facility] Address: [address] [place] [address] Performed By: #### 5 7021-8 ####[facility] LABCLIA [id number] [place] [address] Immature granulocytes/100 WBC (Bld) 1.1 % Normal [facility] Comment on above: Order Comment: Speci men Type: BLOOD SPECIMENOrdering Facility: [facility] Address: [address] [place] [address] Performed By: #### 5 7021-8 ####[facility] LABCLIA [id number] [place] [address] Lymphocytes (Bld) [#/Vol] 1.26 10*3/uL Normal 1.00-4.00 [facility] Comment on above: Order Comment: Speci men Type: BLOOD SPECIMENOrdering Facility: [facility] Address: [address] [place] [address] Performed By: #### 5 7021-8 ####[facility] LABCLIA [id number] [place] [address] Lymphocytes/100 WBC (Bld) 28.8 % Normal [facility] Comment on above: Order Comment: Speci men Type: BLOOD SPECIMENOrdering Facility: [facility] Address: [address] [place] [address] Performed By: #### 5 7021-8 ####[facility] LABCLIA [id number] [place] [address] MCH (RBC) [Entitic mass] 32.4 pg Normal 26.0-34.0 [facility] Comment on above: Order Comment: Speci men Type: BLOOD SPECIMENOrdering Facility: [facility] Address: [address] [place] [address] Performed By: #### 5 7021-8 ####[facility] LABCLIA [id number] [place] [address] MCHC (RBC) [Mass/Vol] 32.5 g/dL Normal 30.5-36.0 [facility] Comment on above: Order Comment: Speci men Type: BLOOD SPECIMENOrdering Facility: [facility] Address: [address] [place] [address] Performed By: #### 5 7021-8 ####[facility] LABCLIA [id number] [place] [address] MCV (RBC) [Entitic vol] 99.7 fL Normal 80.0-100.0 [facility] Comment on above: Order Comment: Speci men Type: BLOOD SPECIMENOrdering Facility: [facility] Address: [address] [place] [address] Performed By: #### 5 7021-8 ####[facility] LABCLIA [id number] [place] [address] Monocytes (Bld) [#/Vol] 0.29 10*3/uL Normal <0.87 [facility] Comment on above: Order Comment: Speci men Type: BLOOD SPECIMENOrdering Facility: [facility] Address: [address] [place] [address] Performed By: #### 5 7021-8 ####[facility] LABCLIA [id number] [place] [address] Monocytes/100 WBC (Bld) 6.6 % Normal [facility] Comment on above: Order Comment: Speci men Type: BLOOD SPECIMENOrdering Facility: [facility] Address: [address] [place] [address] Performed By: #### 5 7021-8 ####[facility] LABCLIA [id number] [place] [address] Neutrophils (Bld) [#/Vol] 2.72 10*3/uL Normal 1.45-7.50 [facility] Comment on above: Order Comment: Speci men Type: BLOOD SPECIMENOrdering Facility: [facility] Address: [address] [place] [address] Performed By: #### 5 7021-8 ####[facility] LABCLIA [id number] [place] [address] Neutrophils/100 WBC (Bld) 62.4 % Normal [facility] Comment on above: Order Comment: Speci men Type: BLOOD SPECIMENOrdering Facility: [facility] Address: [address] [place] [address] Performed By: #### 5 7021-8 ####[facility] LABCLIA [id number] [place] [address] Nucleated RBC (Bld) [#/Vol] 10*3/uL Normal <0.01 [facility] Comment on above: Order Comment: Speci men Type: BLOOD SPECIMENOrdering Facility: [facility] Address: [address] [place] [address] Performed By: #### 5 7021-8 ####[facility] LABCLIA [id number] [place] [address] Nucleated RBC/100 WBC (Bld) [Ratio] 0.0 /[address] [facility] Comment on above: Order Comment: Speci men Type: BLOOD SPECIMENOrdering Facility: [facility] Address: [address] [place] [address] Performed By: #### 5 7021-8 ####[facility] LABCLIA [id number] [place] [address] Platelet mean volume (Bld) [Entitic vol] 9.9 fL Normal 9.0-12.7 [facility] Comment on above: Order Comment: Speci men Type: BLOOD SPECIMENOrdering Facility: [facility] Address: [address] [place] [address] Performed By: #### 5 7021-8 ####[facility] LABCLIA [id number] [place] [address] Platelets (Bld) [#/Vol] 236 10*3/uL Normal 150-400 [facility] Comment on above: Order Comment: Speci men Type: BLOOD SPECIMENOrdering Facility: [facility] Address: [address] [place] [address] Performed By: #### 5 7021-8 ####[facility] LABCLIA [id number] [place] [address] RBC (Bld) [#/Vol] 3.15 10*6/uL Low 4.20-6.00 [facility] Comment on above: Order Comment: Speci men Type: BLOOD SPECIMENOrdering Facility: [facility] Address: [address] [place] [address] Performed By: #### 5 7021-8 ####[facility] LABCLIA [id number] [place] [address] WBC (Bld) [#/Vol] 4.37 10*3/uL Normal 3.70-11.00 [facility] Comment on above: Order Comment: Speci men Type: BLOOD SPECIMENOrdering Facility: [facility] Address: [address] [id number] Performed By: #### 5 7021-8 ####[facility] LABCLIA [id number] [place] [address] Basophils (Bld) [#/Vol] 0.04 10*3/uL <0.11 k/uL [facility] Basophils/100 WBC (Bld) 0.9 % [facility] Differential cell count method Nom (Bld) Auto [facility] Eosinophils (Bld) [#/Vol] <0.46 k/uL [facility] Eosinophils/100 WBC (Bld) 0.2 % [facility] Erythrocyte distribution width (RBC) [Ratio] 14.8 % 11.5 - 15.0 % [facility] Hematocrit (Bld) [Volume fraction] 31.4 % Low 39.0 - 51.0 % [facility] Hemoglobin (Bld) [Mass/Vol] 10.2 g/dL Low 13.0 - 17.0 g/dL [facility] Immature granulocytes (Bld) [#/Vol] 0.05 10*3/uL <0.10 k/uL [facility] Immature granulocytes/100 WBC (Bld) 1.1 % [facility] Lymphocytes (Bld) [#/Vol] 1.26 10*3/uL 1.00 - 4.00 k/uL [facility] Lymphocytes/100 WBC (Bld) 28.8 % [facility] MCH (RBC) [Entitic mass] 32.4 pg 26.0 - 34.0 pg [facility] MCHC (RBC) [Mass/Vol] 32.5 g/dL 30.5 - 36.0 g/dL [facility] MCV (RBC) [Entitic vol] 99.7 fL 80.0 - 100.0 fL [facility] Monocytes (Bld) [#/Vol] 0.29 10*3/uL <0.87 k/uL [facility] Monocytes/100 WBC (Bld) 6.6 % [facility] Neutrophils (Bld) [#/Vol] 2.72 10*3/uL 1.45 - 7.50 k/uL [facility] Neutrophils/100 WBC (Bld) 62.4 % [facility] Nucleated RBC (Bld) [#/Vol] <0.01 k/uL [facility] Nucleated RBC/100 WBC (Bld) [Ratio] 0.0 /100 WBC [facility] Platelet mean volume (Bld) [Entitic vol] 9.9 fL 9.0 - 12.7 fL [facility] Platelets (Bld) [#/Vol] 236 10*3/uL 150 - 400 k/uL [facility] RBC (Bld) [#/Vol] 3.15 10*6/uL Low 4.20 - 6.0 0 m/uL [facility] WBC (Bld) [#/Vol] 4.37 10*3/uL 3.70 - 11. 00 k/uL [facility] CNOVSPon 03-08-[address] [facility] Comprehensive metabolic 2000 panelon 03-08-2023 Albumin [Mass/Vol] 4.2 g/dL Normal 3.9-4.9 [facility] Comment on above: Order Comment: Speci men Type: BLOOD SPECIMENOrdering Facility: [facility] Address: [address] [place] [address] Performed By: #### 2 4323-8 ####[facility] LABCLIA [id number] [place] [address] ALP [Catalytic activity/Vol] 128 U/L High 38-113 [facility] Comment on above: Order Comment: Speci men Type: BLOOD SPECIMENOrdering Facility: [facility] Address: [address] [place] [address] Performed By: #### 2 4323-8 ####[facility] LABCLIA [id number] [place] [address] ALT [Catalytic activity/Vol] 32 U/L Normal 10-54 [facility] Comment on above: Order Comment: Speci men Type: BLOOD SPECIMENOrdering Facility: [facility] Address: [address] [place] [address] Performed By: #### 2 4323-8 ####[facility] LABCLIA [id number] [place] [address] Anion gap [Moles/Vol] 8 mmol/L Low 9-18 [facility] Comment on above: Order Comment: Speci men Type: BLOOD SPECIMENOrdering Facility: [facility] Address: [address] [place] [address] Performed By: #### 2 4323-8 ####[facility] LABCLIA [id number] [place] [address] AST [Catalytic activity/Vol] 26 U/L Normal 14-40 [facility] Comment on above: Order Comment: Speci men Type: BLOOD SPECIMENOrdering Facility: [facility] Address: [address] [place] [address] Performed By: #### 2 4323-8 ####[facility] LABCLIA [id number] [place] [address] Bilirubin [Mass/Vol] 1.2 mg/dL Normal 0.2-1.3 [facility] Comment on above: Order Comment: Speci men Type: BLOOD SPECIMENOrdering Facility: [facility] Address: [address] [place] [address] Performed By: #### 2 4323-8 ####[facility] LABCLIA [id number] [place] [address] Calcium [Mass/Vol] 10.8 mg/dL High 8.5-10.2 [facility] Comment on above: Order Comment: Speci men Type: BLOOD SPECIMENOrdering Facility: [facility] Address: [address] [place] [address] Performed By: #### 2 4323-8 ####[facility] LABCLIA [id number] [place] [address] Chloride [Moles/Vol] 103 mmol/L Normal 97-105 [facility] Comment on above: Order Comment: Speci men Type: BLOOD SPECIMENOrdering Facility: [facility] Address: [address] [place] [address] Performed By: #### 2 4323-8 ####[facility] LABCLIA [id number] [place] [address] CO2 [Moles/Vol] 25 mmol/L Normal 22-30 [facility] Comment on above: Order Comment: Speci men Type: BLOOD SPECIMENOrdering Facility: [facility] Address: [address] [place] [address] Performed By: #### 2 4323-8 ####[facility] LABCLIA [id number] [place] [address] Creatinine [Mass/Vol] 0.94 mg/dL Normal 0.73-1.22 [facility] Comment on above: Order Comment: Speci men Type: BLOOD SPECIMENOrdering Facility: [facility] Address: [address] [place] [address] Performed By: #### 2 4323-8 ####[facility] LABCLIA [id number] [place] [address] Creatinine and Glomerular filtration rate.predicted panel (S/P/Bld) 87 mL/min/1.73m??? Normal >=60 [facility] Comment on above: Order Comment: Speci men Type: BLOOD SPECIMENOrdering Facility: [facility] Address: [address] [place] [address] Result Comment: Kathy mated Glomerular Filtration Rate (eGFR) is calculated using the 2020 CKD-EPI creatinine equation. This equation utilizes serum creatinine, sex, and age as parameters. The creatinine assay has traceable calibration to isotope dilution-mass spectrometry. Refer to KDIGO guidelines for clinical interpretation. In patients with unstable renal function, e.g. those with acute kidney injury, the eGFR may not accurately reflect actual GFR. Performed By: #### 2 4323-8 ####[facility] LABCLIA [id number] [place] [address] Glucose [Mass/Vol] 138 mg/dL High 74-99 [facility] Comment on above: Order Comment: Speci men Type: BLOOD SPECIMENOrdering Facility: [facility] Address: [address] [place] [address] Result Comment: The [place] [employer] (ADA) provides guidance for cutoff values for fasting glucose and random glucose. The ADA defines fasting as no caloric intake for at least 8 hours. Fasting plasma glucose results between 100 to 125 mg/dL indicate increased risk for diabetes (prediabetes).Fasting plasma glucose results greater than or equal to 126 mg/dL meet the criteria for diagnosis of diabetes. In the absence of unequivocal hyperglycemia, results should be confirmed by repeat testing. In a patient with classic symptoms of hyperglycemia or hyperglycemic crisis, random plasma glucose results greater than or equal to 200 mg/dL meet the criteria for diagnosis of diabetes.Reference: Standards of Medical Care in Diabetes 2016, [place] [employer]. Diabetes Care. 2016.39(Suppl 1). Performed By: #### 2 4323-8 ####[facility] LABIA [id number] [place] [address] Potassium [Moles/Vol] 4.2 mmol/L Normal 3.7-5.1 [facility] Comment on above: Order Comment: Speci men Type: BLOOD SPECIMENOrdering Facility: [facility] Address: [address] [id number] Performed By: #### 2 4323-8 ####[facility] LABCLIA [id number] [place] [address] Protein [Mass/Vol] 7.0 g/dL Normal 6.3-8.0 [facility] Comment on above: Order Comment: Speci men Type: BLOOD SPECIMENOrdering Facility: [facility] Address: [address] [place] [address] Performed By: #### 2 4323-8 ####[facility] LABCLIA [id number] [place] [address] Sodium [Moles/Vol] 136 mmol/L Normal 136-144 [facility] Comment on above: Order Comment: Speci men Type: BLOOD SPECIMENOrdering Facility: [facility] Address: [address] [place] [address] Performed By: #### 2 4323-8 ####[facility] LABCLIA [id number] [place] [address] Urea nitrogen [Mass/Vol] 15 mg/dL Normal 9-24 [facility] Comment on above: Order Comment: Speci men Type: BLOOD SPECIMENOrdering Facility: [facility] Address: [address] [place] [address] Performed By: #### 2 4323-8 ####[facility] LABCLIA [id number] [place] [address] Albumin [Mass/Vol] 4.2 g/dL 3.9 - 4.9 g/dL [facility] ALP [Catalytic activity/Vol] 128 U/L High 38 - 113 U/L [facility] ALT [Catalytic activity/Vol] 32 U/L 10 - 54 U/L [facility] Anion gap [Moles/Vol] 8 mmol/L Low 9 - 18 mmol/L [facility] AST [Catalytic activity/Vol] 26 U/L 14 - 40 U/L [facility] Bilirubin [Mass/Vol] 1.2 mg/dL 0.2 - 1.3 mg/dL [facility] Calcium [Mass/Vol] 10.8 mg/dL High 8.5 - 10. 2 mg/dL [facility] Chloride [Moles/Vol] 103 mmol/L 97 - 105 mmol/L [facility] CO2 [Moles/Vol] 25 mmol/L 22 - 30 mmol/L [facility] Creatinine [Mass/Vol] 0.94 mg/dL 0.73 - 1.22 mg/dL [facility] Estimated Glomerular Filtration Rate 87 mL/min/1.73m >=60 mL/min/1.73m [facility] Glucose [Mass/Vol] 138 mg/dL High 74 - 99 mg/dL [facility] Potassium [Moles/Vol] 4.2 mmol/L 3.7 - 5.1 mmol/L [facility] Protein [Mass/Vol] 7.0 g/dL 6.3 - 8.0 g/dL [facility] Sodium [Moles/Vol] 136 mmol/L 136 - 144 mmol/L [facility] Urea nitrogen [Mass/Vol] 15 mg/dL 9 - 24 mg/dL [facility] CNPNon 03-02-[address] [facility] CBC W Auto Differential pane l (Bld)on 03-01-2023 Basophils (Bld) [#/Vol] 0.04 10*3/uL Normal <0.11 [facility] Comment on above: Order Comment: Speci men Type: BLOOD SPECIMENOrdering Facility: [facility] Address: [address] [place] [address] Performed By: #### 5 7021-8 ####[facility] LABCLIA [id number] [place] [address] Basophils/100 WBC (Bld) 0.5 % Normal [facility] Comment on above: Order Comment: Speci men Type: BLOOD SPECIMENOrdering Facility: [facility] Address: [address] [place] [address] Performed By: #### 5 7021-8 ####[facility] LABCLIA [id number] [place] [address] Differential cell count method Nom (Bld) Auto Normal [facility] Comment on above: Order Comment: Speci men Type: BLOOD SPECIMENOrdering Facility: [facility] Address: [address] [place] [address] Performed By: #### 5 7021-8 ####[facility] LABCLIA [id number] [place] [address] Eosinophils (Bld) [#/Vol] 10*3/uL Normal <0.46 [facility] Comment on above: Order Comment: Speci men Type: BLOOD SPECIMENOrdering Facility: [facility] Address: [address] [place] [address] Performed By: #### 5 7021-8 ####[facility] LABCLIA [id number] [place] [address] Eosinophils/100 WBC (Bld) 0.2 % Normal [facility] Comment on above: Order Comment: Speci men Type: BLOOD SPECIMENOrdering Facility: [facility] Address: [address] [place] [address] Performed By: #### 5 7021-8 ####[facility] LABCLIA [id number] [place] [address] Erythrocyte distribution width (RBC) [Ratio] 15.6 % High 11.5-15.0 [facility] Comment on above: Order Comment: Speci men Type: BLOOD SPECIMENOrdering Facility: [facility] Address: [address] [place] [address] Performed By: #### 5 7021-8 ####[facility] LABCLIA [id number] [place] [address] Hematocrit (Bld) [Volume fraction] 37.3 % Low 39.0-51.0 [facility] Comment on above: Order Comment: Speci men Type: BLOOD SPECIMENOrdering Facility: [facility] Address: [address] [place] [address] Performed By: #### 5 7021-8 ####[facility] LABCLIA [id number] [place] [address] Hemoglobin (Bld) [Mass/Vol] 11.9 g/dL Low 13.0-17.0 [facility] Comment on above: Order Comment: Speci men Type: BLOOD SPECIMENOrdering Facility: [facility] Address: [address] [place] [address] Performed By: #### 5 7021-8 ####[facility] LABCLIA [id number] [place] [address] Immature granulocytes (Bld) [#/Vol] 0.07 10*3/uL Normal <0.10 [facility] Comment on above: Order Comment: Speci men Type: BLOOD SPECIMENOrdering Facility: [facility] Address: [address] [place] [address] Performed By: #### 5 7021-8 ####[facility] LABCLIA [id number] [place] [address] Immature granulocytes/100 WBC (Bld) 0.9 % Normal [facility] Comment on above: Order Comment: Speci men Type: BLOOD SPECIMENOrdering Facility: [facility] Address: [address] [place] [address] Performed By: #### 5 7021-8 ####[facility] LABCLIA [id number] [place] [address] Lymphocytes (Bld) [#/Vol] 1.45 10*3/uL Normal 1.00-4.00 [facility] Comment on above: Order Comment: Speci men Type: BLOOD SPECIMENOrdering Facility: [facility] Address: [address] [place] [address] Performed By: #### 5 7021-8 ####[facility] LABCLIA [id number] [place] [address] Lymphocytes/100 WBC (Bld) 17.9 % Normal [facility] Comment on above: Order Comment: Speci men Type: BLOOD SPECIMENOrdering Facility: [facility] Address: [address] [place] [address] Performed By: #### 5 7021-8 ####[facility] LABCLIA [id number] [place] [address] MCH (RBC) [Entitic mass] 32.4 pg Normal 26.0-34.0 [facility] Comment on above: Order Comment: Speci men Type: BLOOD SPECIMENOrdering Facility: [facility] Address: [address] [place] [address] Performed By: #### 5 7021-8 ####[facility] LABCLIA [id number] [place] [address] MCHC (RBC) [Mass/Vol] 31.9 g/dL Normal 30.5-36.0 [facility] Comment on above: Order Comment: Speci men Type: BLOOD SPECIMENOrdering Facility: [facility] Address: [address] [place] [address] Performed By: #### 5 7021-8 ####[facility] LABCLIA [id number] [place] [address] MCV (RBC) [Entitic vol] 101.6 fL High 80.0-100.0 [facility] Comment on above: Order Comment: Speci men Type: BLOOD SPECIMENOrdering Facility: [facility] Address: [address] [place] [address] Performed By: #### 5 7021-8 ####[facility] LABCLIA [id number] [place] [address] Monocytes (Bld) [#/Vol] 0.94 10*3/uL High <0.87 [facility] Comment on above: Order Comment: Speci men Type: BLOOD SPECIMENOrdering Facility: [facility] Address: [address] [place] [address] Performed By: #### 5 7021-8 ####[facility] LABCLIA [id number] [place] [address] Monocytes/100 WBC (Bld) 11.6 % Normal [facility] Comment on above: Order Comment: Speci men Type: BLOOD SPECIMENOrdering Facility: [facility] Address: [address] [place] [address] Performed By: #### 5 7021-8 ####[facility] LABCLIA [id number] [place] [address] Neutrophils (Bld) [#/Vol] 5.58 10*3/uL Normal 1.45-7.50 [facility] Comment on above: Order Comment: Speci men Type: BLOOD SPECIMENOrdering Facility: [facility] Address: [address] [place] [address] Performed By: #### 5 7021-8 ####[facility] LABCLIA [id number] [place] [address] Neutrophils/100 WBC (Bld) 68.9 % Normal [facility] Comment on above: Order Comment: Speci men Type: BLOOD SPECIMENOrdering Facility: [facility] Address: [address] [place] [address] Performed By: #### 5 7021-8 ####[facility] LABCLIA [id number] [place] [address] Nucleated RBC (Bld) [#/Vol] 10*3/uL Normal <0.01 [facility] Comment on above: Order Comment: Speci men Type: BLOOD SPECIMENOrdering Facility: [facility] Address: [address] [place] [address] Performed By: #### 5 7021-8 ####[facility] LABCLIA [id number] [place] [address] Nucleated RBC/100 WBC (Bld) [Ratio] 0.0 /[address] [facility] Comment on above: Order Comment: Speci men Type: BLOOD SPECIMENOrdering Facility: [facility] Address: [address] [place] [address] Performed By: #### 5 7021-8 ####[facility] LABCLIA [id number] [place] [address] Platelet mean volume (Bld) [Entitic vol] 9.2 fL Normal 9.0-12.7 [facility] Comment on above: Order Comment: Speci men Type: BLOOD SPECIMENOrdering Facility: [facility] Address: [address] [place] [address] Performed By: #### 5 7021-8 ####[facility] LABCLIA [id number] [place] [address] Platelets (Bld) [#/Vol] 449 10*3/uL High 150-400 [facility] Comment on above: Order Comment: Speci men Type: BLOOD SPECIMENOrdering Facility: [facility] Address: [address] [place] [address] Performed By: #### 5 7021-8 ####[facility] LABCLIA [id number] [place] [address] RBC (Bld) [#/Vol] 3.67 10*6/uL Low 4.20-6.00 [facility] Comment on above: Order Comment: Speci men Type: BLOOD SPECIMENOrdering Facility: [facility] Address: [address] [place] [address] Performed By: #### 5 7021-8 ####[facility] LABIA [id number] [place] [address] WBC (Bld) [#/Vol] 8.10 10*3/uL Normal 3.70-11.00 [facility] Comment on above: Order Comment: Speci men Type: BLOOD SPECIMENOrdering Facility: [facility] Address: [address] [place], [place] [address] Performed By: #### 5 7021-8 ####[facility] LABIA [id number] [place] [address] Basophils (Bld) [#/Vol] 0.04 10*3/uL <0.11 k/uL [facility] Basophils/100 WBC (Bld) 0.5 % [facility] Differential cell count method Nom (Bld) Auto [facility] Eosinophils (Bld) [#/Vol] <0.46 k/uL [facility] Eosinophils/100 WBC (Bld) 0.2 % [facility] Erythrocyte distribution width (RBC) [Ratio] 15.6 % High 11.5 - 15.0 % [facility] Hematocrit (Bld) [Volume fraction] 37.3 % Low 39.0 - 51.0 % [facility] Hemoglobin (Bld) [Mass/Vol] 11.9 g/dL Low 13.0 - 17.0 g/dL [facility] Immature granulocytes (Bld) [#/Vol] 0.07 10*3/uL <0.10 k/uL [facility] Immature granulocytes/100 WBC (Bld) 0.9 % [facility] Lymphocytes (Bld) [#/Vol] 1.45 10*3/uL 1.00 - 4.00 k/uL [facility] Lymphocytes/100 WBC (Bld) 17.9 % [facility] MCH (RBC) [Entitic mass] 32.4 pg 26.0 - 34.0 pg [facility] MCHC (RBC) [Mass/Vol] 31.9 g/dL 30.5 - 36.0 g/dL [facility] MCV (RBC) [Entitic vol] 101.6 fL High 80.0 - 100.0 fL [facility] Monocytes (Bld) [#/Vol] 0.94 10*3/uL High <0.87 k/uL [facility] Monocytes/100 WBC (Bld) 11.6 % [facility] Neutrophils (Bld) [#/Vol] 5.58 10*3/uL 1.45 - 7.50 k/uL [facility] Neutrophils/100 WBC (Bld) 68.9 % [facility] Nucleated RBC (Bld) [#/Vol] <0.01 k/uL [facility] Nucleated RBC/100 WBC (Bld) [Ratio] 0.0 /100 WBC [facility] Platelet mean volume (Bld) [Entitic vol] 9.2 fL 9.0 - 12.7 fL [facility] Platelets (Bld) [#/Vol] 449 10*3/uL High 150 - 400 k/uL [facility] RBC (Bld) [#/Vol] 3.67 10*6/uL Low 4.20 - 6.0 0 m/uL [facility] WBC (Bld) [#/Vol] 8.10 10*3/uL 3.70 - 11. 00 k/uL [facility] CNOVSPon 03-01-[address] [facility] Cancer Ag19-9 SerPl-aCncon 1 Cancer Ag 19-9 Qn 2928.0 [arb'U]/mL High <36.0 [facility] Comment on above: Order Comment: Speci men Type: BLOOD SPECIMENOrdering Facility: [facility] Address: [address] [place] [address] Result Comment: Canc er antigen 19-9 test is used as an aid in monitoring response to treatment or recurrence in patients with established pancreatic, hepatobiliary, or gastrointestinal malignancies. Clinical correlation is required.The CA 19-9 Antigen test was performed using the [employer] Un[employer] DXI paramagnetic particle chemiluminescent immunoassay method. Results obtained with different assay methods or kits cannot be used interchangeably. Performed By: #### 2 4108-3 ####[facility] LABCLIA [id number] [place] [address] [place] Comprehensive metabolic 2000 panelon 03-01-2023 Albumin [Mass/Vol] 4.0 g/dL Normal 3.9-4.9 [facility] Comment on above: Order Comment: Speci men Type: BLOOD SPECIMENOrdering Facility: [facility] Address: [address] [place] [address] Performed By: #### 2 4323-8 ####[facility] LABCLIA [id number] [place] [address] [place] ALP [Catalytic activity/Vol] 128 U/L High 38-113 [facility] Comment on above: Order Comment: Speci men Type: BLOOD SPECIMENOrdering Facility: [facility] Address: [address] [place] [address] Performed By: #### 2 4323-8 ####[facility] LABIA [id number] [address] [place] ALT [Catalytic activity/Vol] 29 U/L Normal 10-54 [facility] Comment on above: Order Comment: Speci men Type: BLOOD SPECIMENOrdering Facility: [facility] Address: [address] [place] [address] Performed By: #### 2 4323-8 ####[facility] LABCLIA [id number] [place] [address] [place] Anion gap [Moles/Vol] 11 mmol/L Normal 9-18 [facility] Comment on above: Order Comment: Speci men Type: BLOOD SPECIMENOrdering Facility: [facility] Address: [address] [place] [address] Performed By: #### 2 4323-8 ####[facility] LABCLIA [id number] [place] [address] [place] AST [Catalytic activity/Vol] 23 U/L Normal 14-40 [facility] Comment on above: Order Comment: Speci men Type: BLOOD SPECIMENOrdering Facility: [facility] Address: [address] [place] [address] Performed By: #### 2 4323-8 ####[facility] LABCLIA [id number] [place] [address] [place] Bilirubin [Mass/Vol] 1.0 mg/dL Normal 0.2-1.3 [facility] Comment on above: Order Comment: Speci men Type: BLOOD SPECIMENOrdering Facility: [facility] Address: [address] [place] [address] Performed By: #### 2 4323-8 ####[facility] LABCLIA [id number] [place] [address] [place] Calcium [Mass/Vol] 10.4 mg/dL High 8.5-10.2 [facility] Comment on above: Order Comment: Speci men Type: BLOOD SPECIMENOrdering Facility: [facility] Address: [address] [place] [address] Performed By: #### 2 4323-8 ####[facility] LABCLIA [id number] [place] [address] [place] Chloride [Moles/Vol] 103 mmol/L Normal 97-105 [facility] Comment on above: Order Comment: Speci men Type: BLOOD SPECIMENOrdering Facility: [facility] Address: [address] [place] [address] Performed By: #### 2 4323-8 ####[facility] LABCLIA [id number] [place] [address] [place] CO2 [Moles/Vol] 22 mmol/L Normal 22-30 [facility] Comment on above: Order Comment: Speci men Type: BLOOD SPECIMENOrdering Facility: [facility] Address: [address] [place] [address] Performed By: #### 2 4323-8 ####[facility] LABCLIA [id number] [place] [address] [place] Creatinine [Mass/Vol] 0.91 mg/dL Normal 0.73-1.22 [facility] Comment on above: Order Comment: Speci men Type: BLOOD SPECIMENOrdering Facility: [facility] Address: [address] [place] [address] Performed By: #### 2 4323-8 ####[facility] LABCLIA [id number] [place] [address] [place] Creatinine and Glomerular filtration rate.predicted panel (S/P/Bld) 90 mL/min/1.73m??? Normal >=60 [facility] Comment on above: Order Comment: Speci men Type: BLOOD SPECIMENOrdering Facility: [facility] Address: [address] [place] [address] Result Comment: Kathy mated Glomerular Filtration Rate (eGFR) is calculated using the 2020 CKD-EPI creatinine equation. This equation utilizes serum creatinine, sex, and age as parameters. The creatinine assay has traceable calibration to isotope dilution-mass spectrometry. Refer to KDIGO guidelines for clinical interpretation. In patients with unstable renal function, e.g. those with acute kidney injury, the eGFR may not accurately reflect actual GFR. Performed By: #### 2 4323-8 ####[facility] LABCLIA [id number] [place] [address] [place] Glucose [Mass/Vol] 149 mg/dL High 74-99 [facility] Comment on above: Order Comment: Speci men Type: BLOOD SPECIMENOrdering Facility: [facility] Address: [address] [place] [address] Result Comment: The [place] [employer] (ADA) provides guidance for cutoff values for fasting glucose and random glucose. The ADA defines fasting as no caloric intake for at least 8 hours. Fasting plasma glucose results between 100 to 125 mg/dL indicate increased risk for diabetes (prediabetes).Fasting plasma glucose results greater than or equal to 126 mg/dL meet the criteria for diagnosis of diabetes. In the absence of unequivocal hyperglycemia, results should be confirmed by repeat testing. In a patient with classic symptoms of hyperglycemia or hyperglycemic crisis, random plasma glucose results greater than or equal to 200 mg/dL meet the criteria for diagnosis of diabetes.Reference: Standards of Medical Care in Diabetes 2016, [place] [employer]. Diabetes Care. 2016.39(Suppl 1). Performed By: #### 2 4323-8 ####[facility] LABCLIA [id number] [place] [address] [place] Potassium [Moles/Vol] 4.5 mmol/L Normal 3.7-5.1 [facility] Comment on above: Order Comment: Speci men Type: BLOOD SPECIMENOrdering Facility: [facility] Address: [address] [place] [address] Performed By: #### 2 4323-8 ####[facility] LABCLIA [id number] [place] [address] [place] Protein [Mass/Vol] 6.8 g/dL Normal 6.3-8.0 [facility] Comment on above: Order Comment: Speci men Type: BLOOD SPECIMENOrdering Facility: [facility] Address: [address] [place] [address] Performed By: #### 2 4323-8 ####[facility] LABCLIA [id number] [place] [address] [place] Sodium [Moles/Vol] 136 mmol/L Normal 136-144 [facility] Comment on above: Order Comment: Speci men Type: BLOOD SPECIMENOrdering Facility: [facility] Address: [address] [place] [address] Performed By: #### 2 4323-8 ####[facility] LABCLIA [id number] [place] [address] [place] Urea nitrogen [Mass/Vol] 21 mg/dL Normal 9-24 [facility] Comment on above: Order Comment: Speci men Type: BLOOD SPECIMENOrdering Facility: [facility] Address: [address] [place] [address] Performed By: #### 2 4323-8 ####[facility] LABCLIA [id number] [place] [address] [place] CBC W Auto Differential pane l (Bld)on 02-08-2023 Basophils (Bld) [#/Vol] 10*3/uL Normal <0.11 [facility] Comment on above: Order Comment: Speci men Type: BLOOD SPECIMENOrdering Facility: [facility] Address: [address] [place] [address] Performed By: #### 5 7021-8 ####[facility] LABCLIA [id number] [place] [address] Basophils/100 WBC (Bld) 0.4 % Normal [facility] Comment on above: Order Comment: Speci men Type: BLOOD SPECIMENOrdering Facility: [facility] Address: [address] [place] [address] Performed By: #### 5 7021-8 ####[facility] LABCLIA [id number] [place] [address] Differential cell count method Nom (Bld) Auto Normal [facility] Comment on above: Order Comment: Speci men Type: BLOOD SPECIMENOrdering Facility: [facility] Address: [address] [place] [address] Performed By: #### 5 7021-8 ####[facility] LABCLIA [id number] [place] [address] Eosinophils (Bld) [#/Vol] 10*3/uL Normal <0.46 [facility] Comment on above: Order Comment: Speci men Type: BLOOD SPECIMENOrdering Facility: [facility] Address: [address] [place] [address] Performed By: #### 5 7021-8 ####[facility] LABCLIA [id number] [place] [address] Eosinophils/100 WBC (Bld) 0.2 % Normal [facility] Comment on above: Order Comment: Speci men Type: BLOOD SPECIMENOrdering Facility: [facility] Address: [address] [place] [address] Performed By: #### 5 7021-8 ####[facility] LABCLIA [id number] [place] [address] Erythrocyte distribution width (RBC) [Ratio] 14.3 % Normal 11.5-15.0 [facility] Comment on above: Order Comment: Speci men Type: BLOOD SPECIMENOrdering Facility: [facility] Address: [address] [place] [address] Performed By: #### 5 7021-8 ####[facility] LABCLIA [id number] [place] [address] Hematocrit (Bld) [Volume fraction] 28.4 % Low 39.0-51.0 [facility] Comment on above: Order Comment: Speci men Type: BLOOD SPECIMENOrdering Facility: [facility] Address: [address] [place] [address] Performed By: #### 5 7021-8 ####[facility] LABCLIA [id number] [place] [address] Hemoglobin (Bld) [Mass/Vol] 9.6 g/dL Low 13.0-17.0 [facility] Comment on above: Order Comment: Speci men Type: BLOOD SPECIMENOrdering Facility: [facility] Address: [address] [place] [address] Performed By: #### 5 7021-8 ####[facility] LABCLIA [id number] [place] [address] Immature granulocytes (Bld) [#/Vol] 0.03 10*3/uL Normal <0.10 [facility] Comment on above: Order Comment: Speci men Type: BLOOD SPECIMENOrdering Facility: [facility] Address: [address] [place] [address] Performed By: #### 5 7021-8 ####[facility] LABCLIA [id number] [place] [address] Immature granulocytes/100 WBC (Bld) 0.6 % Normal [facility] Comment on above: Order Comment: Speci men Type: BLOOD SPECIMENOrdering Facility: [facility] Address: [address] [place] [address] Performed By: #### 5 7021-8 ####[facility] LABCLIA [id number] [place] [address] Lymphocytes (Bld) [#/Vol] 1.42 10*3/uL Normal 1.00-4.00 [facility] Comment on above: Order Comment: Speci men Type: BLOOD SPECIMENOrdering Facility: [facility] Address: [address] [place] [address] Performed By: #### 5 7021-8 ####[facility] LABCLIA [id number] [place] [address] Lymphocytes/100 WBC (Bld) 28.1 % Normal [facility] Comment on above: Order Comment: Speci men Type: BLOOD SPECIMENOrdering Facility: [facility] Address: [address] [place] [address] Performed By: #### 5 7021-8 ####[facility] LABCLIA [id number] [place] [address] MCH (RBC) [Entitic mass] 32.9 pg Normal 26.0-34.0 [facility] Comment on above: Order Comment: Speci men Type: BLOOD SPECIMENOrdering Facility: [facility] Address: [address] [place] [address] Performed By: #### 5 7021-8 ####[facility] LABCLIA [id number] [place] [address] MCHC (RBC) [Mass/Vol] 33.8 g/dL Normal 30.5-36.0 [facility] Comment on above: Order Comment: Speci men Type: BLOOD SPECIMENOrdering Facility: [facility] Address: [address] [place] [address] Performed By: #### 5 7021-8 ####[facility] LABIA [id number] [place] [address] MCV (RBC) [Entitic vol] 97.3 fL Normal 80.0-100.0 [facility] Comment on above: Order Comment: Speci men Type: BLOOD SPECIMENOrdering Facility: [facility] Address: [address] [place] [address] Performed By: #### 5 7021-8 ####[facility] LABIA [id number] [place] [address] Monocytes (Bld) [#/Vol] 0.22 10*3/uL Normal <0.87 [facility] Comment on above: Order Comment: Speci men Type: BLOOD SPECIMENOrdering Facility: [facility] Address: [address] [place] [address] Performed By: #### 5 7021-8 ####[facility] LABCLIA [id number] [place] [address] Monocytes/100 WBC (Bld) 4.3 % Normal [facility] Comment on above: Order Comment: Speci men Type: BLOOD SPECIMENOrdering Facility: [facility] Address: [address] [place] [address] Performed By: #### 5 7021-8 ####[facility] LABCLIA [id number] [place] [address] Neutrophils (Bld) [#/Vol] 3.36 10*3/uL Normal 1.45-7.50 [facility] Comment on above: Order Comment: Speci men Type: BLOOD SPECIMENOrdering Facility: [facility] Address: [address] [place] [address] Performed By: #### 5 7021-8 ####[facility] LABCLIA [id number] [place] [address] Neutrophils/100 WBC (Bld) 66.4 % Normal [facility] Comment on above: Order Comment: Speci men Type: BLOOD SPECIMENOrdering Facility: [facility] Address: [address] [place] [address] Performed By: #### 5 7021-8 ####[facility] LABCLIA [id number] [place] [address] Nucleated RBC (Bld) [#/Vol] 10*3/uL Normal <0.01 [facility] Comment on above: Order Comment: Speci men Type: BLOOD SPECIMENOrdering Facility: [facility] Address: [address] [place] [address] Performed By: #### 5 7021-8 ####[facility] LABCLIA [id number] [place] [address] Nucleated RBC/100 WBC (Bld) [Ratio] 0.0 /[address] [facility] Comment on above: Order Comment: Speci men Type: BLOOD SPECIMENOrdering Facility: [facility] Address: [address] [place] [address] Performed By: #### 5 7021-8 ####[facility] LABCLIA [id number] [place] [address] Platelet mean volume (Bld) [Entitic vol] 9.9 fL Normal 9.0-12.7 [facility] Comment on above: Order Comment: Speci men Type: BLOOD SPECIMENOrdering Facility: [facility] Address: [address] [place] [address] Performed By: #### 5 7021-8 ####[facility] LABCLIA [id number] [place] [address] Platelets (Bld) [#/Vol] 182 10*3/uL Normal 150-400 [facility] Comment on above: Order Comment: Speci men Type: BLOOD SPECIMENOrdering Facility: [facility] Address: [address] [place] [address] Performed By: #### 5 7021-8 ####[facility] LABCLIA [id number] [place] [address] RBC (Bld) [#/Vol] 2.92 10*6/uL Low 4.20-6.00 [facility] Comment on above: Order Comment: Speci men Type: BLOOD SPECIMENOrdering Facility: [facility] Address: [address] [place] [address] Performed By: #### 5 7021-8 ####[facility] LABIA [id number] [place] [address] WBC (Bld) [#/Vol] 5.06 10*3/uL Normal 3.70-11.00 [facility] Comment on above: Order Comment: Speci men Type: BLOOD SPECIMENOrdering Facility: [facility] Address: [address] [place] [address] Performed By: #### 5 7021-8 ####[facility] LABCLIA [id number] [place] [address] CNOVSPon 02-08-[address] [facility] Comprehensive metabolic 2000 panelon 02-08-2023 Albumin [Mass/Vol] 3.9 g/dL Normal 3.9-4.9 [facility] Comment on above: Order Comment: Speci men Type: BLOOD SPECIMENOrdering Facility: [facility] Address: [address] [place] [address] Performed By: #### 2 4323-8 ####[facility] LABCLIA [id number] [place] [address] ALP [Catalytic activity/Vol] 124 U/L High 38-113 [facility] Comment on above: Order Comment: Speci men Type: BLOOD SPECIMENOrdering Facility: [facility] Address: [address] [address] Performed By: #### 2 4323-8 ####[facility] LABCLIA [id number] [place] [address] ALT [Catalytic activity/Vol] 33 U/L Normal 10-54 [facility] Comment on above: Order Comment: Speci men Type: BLOOD SPECIMENOrdering Facility: [facility] Address: [address] [place] [address] Performed By: #### 2 4323-8 ####[facility] LABCLIA [id number] [place] [address] Anion gap [Moles/Vol] 8 mmol/L Low 9-18 [facility] Comment on above: Order Comment: Speci men Type: BLOOD SPECIMENOrdering Facility: [facility] Address: [address] [address] Performed By: #### 2 4323-8 ####[facility] LABCLIA [id number] [place] [address] AST [Catalytic activity/Vol] 25 U/L Normal 14-40 [facility] Comment on above: Order Comment: Speci men Type: BLOOD SPECIMENOrdering Facility: [facility] Address: [address] [address] Performed By: #### 2 4323-8 ####[facility] LABCLIA [id number] [place] [address] Bilirubin [Mass/Vol] 1.3 mg/dL Normal 0.2-1.3 [facility] Comment on above: Order Comment: Speci men Type: BLOOD SPECIMENOrdering Facility: [facility] Address: [address] [address] Performed By: #### 2 4323-8 ####[facility] LABCLIA [id number] [place] [address] Calcium [Mass/Vol] 10.1 mg/dL Normal 8.5-10.2 [facility] Comment on above: Order Comment: Speci men Type: BLOOD SPECIMENOrdering Facility: [facility] Address: [address] [place] [address] Performed By: #### 2 4323-8 ####[facility] LABCLIA [id number] [place] [address] Chloride [Moles/Vol] 104 mmol/L Normal 97-105 [facility] Comment on above: Order Comment: Speci men Type: BLOOD SPECIMENOrdering Facility: [facility] Address: [address] [place] [address] Performed By: #### 2 4323-8 ####[facility] LABCLIA [id number] [place] [address] CO2 [Moles/Vol] 25 mmol/L Normal 22-30 [facility] Comment on above: Order Comment: Speci men Type: BLOOD SPECIMENOrdering Facility: [facility] Address: [address] [place] [address] Performed By: #### 2 4323-8 ####[facility] LABCLIA [id number] [place] [address] Creatinine [Mass/Vol] 0.87 mg/dL Normal 0.73-1.22 [facility] Comment on above: Order Comment: Speci men Type: BLOOD SPECIMENOrdering Facility: [facility] Address: [address] [place] [address] Performed By: #### 2 4323-8 ####[facility] LABCLIA [id number] [place] [address] Creatinine and Glomerular filtration rate.predicted panel (S/P/Bld) 92 mL/min/1.73m??? Normal >=60 [facility] Comment on above: Order Comment: Speci men Type: BLOOD SPECIMENOrdering Facility: [facility] Address: [address] [id number] Result Comment: Kathy mated Glomerular Filtration Rate (eGFR) is calculated using the 2020 CKD-EPI creatinine equation. This equation utilizes serum creatinine, sex, and age as parameters. The creatinine assay has traceable calibration to isotope dilution-mass spectrometry. Refer to KDIGO guidelines for clinical interpretation. In patients with unstable renal function, e.g. those with acute kidney injury, the eGFR may not accurately reflect actual GFR. Performed By: #### 2 4323-8 ####[facility] LABCLIA [id number] [place] [address] Glucose [Mass/Vol] 136 mg/dL High 74-99 [facility] Comment on above: Order Comment: Noemí hoff Type: BLOOD SPECIMENOrdering Facility: [facility] Address: [address] [address] Result Comment: The [place] [employer] (ADA) provides guidance for cutoff values for fasting glucose and random glucose. The ADA defines fasting as no caloric intake for at least 8 hours. Fasting plasma glucose results between 100 to 125 mg/dL indicate increased risk for diabetes (prediabetes).Fasting plasma glucose results greater than or equal to 126 mg/dL meet the criteria for diagnosis of diabetes. In the absence of unequivocal hyperglycemia, results should be confirmed by repeat testing. In a patient with classic symptoms of hyperglycemia or hyperglycemic crisis, random plasma glucose results greater than or equal to 200 mg/dL meet the criteria for diagnosis of diabetes.Reference: Standards of Medical Care in Diabetes 2016, [place] [employer]. Diabetes Care. 2016.39(Suppl 1). Performed By: #### 2 4323-8 ####[facility] LABIA [id number] [place] [address] Potassium [Moles/Vol] 4.1 mmol/L Normal 3.7-5.1 [facility] Comment on above: Order Comment: Noemí hoff Type: BLOOD SPECIMENOrdering Facility: [facility] Address: [address] Performed By: #### 2 4323-8 ####[facility] LABCLIA [id number] [place] [address] Protein [Mass/Vol] 6.5 g/dL Normal 6.3-8.0 [facility] Comment on above: Order Comment: Speci men Type: BLOOD SPECIMENOrdering Facility: [facility] Address: [address] [place] [address] Performed By: #### 2 4323-8 ####[facility] LABCLIA [id number] [place] [address] Sodium [Moles/Vol] 137 mmol/L Normal 136-144 [facility] Comment on above: Order Comment: Speci men Type: BLOOD SPECIMENOrdering Facility: [facility] Address: [address] [place] [address] Performed By: #### 2 4323-8 ####[facility] LABCLIA [id number] [place] [address] Urea nitrogen [Mass/Vol] 18 mg/dL Normal 9-24 [facility] Comment on above: Order Comment: Speci men Type: BLOOD SPECIMENOrdering Facility: [facility] Address: [address] [place] [address] Performed By: #### 2 4323-8 ####[facility] LABCLIA [id number] [place] [address] CBC W Auto Differential pane l (Bld)on 02-01-2023 Basophils (Bld) [#/Vol] 10*3/uL Normal <0.11 [facility] Comment on above: Order Comment: Speci men Type: BLOOD SPECIMENOrdering Facility: [facility] Address: [address] [place] [address] Performed By: #### 5 7021-8 ####[facility] LABCLIA [id number] [place] [address] Basophils/100 WBC (Bld) 0.2 % Normal [facility] Comment on above: Order Comment: Speci men Type: BLOOD SPECIMENOrdering Facility: [facility] Address: [address] [place] [address] Performed By: #### 5 7021-8 ####[facility] LABCLIA [id number] [place] [address] Differential cell count method Nom (Bld) Auto Normal [facility] Comment on above: Order Comment: Speci men Type: BLOOD SPECIMENOrdering Facility: [facility] Address: [address] [address] Performed By: #### 5 7021-8 ####[facility] LABCLIA [id number] [place] [address] Eosinophils (Bld) [#/Vol] 10*3/uL Normal <0.46 [facility] Comment on above: Order Comment: Speci men Type: BLOOD SPECIMENOrdering Facility: [facility] Address: [address] [address] Performed By: #### 5 7021-8 ####[facility] LABCLIA [id number] [place] [address] Eosinophils/100 WBC (Bld) 0.2 % Normal [facility] Comment on above: Order Comment: Speci men Type: BLOOD SPECIMENOrdering Facility: [facility] Address: [address] [place] [address] Performed By: #### 5 7021-8 ####[facility] LABCLIA [id number] [place] [address] Erythrocyte distribution width (RBC) [Ratio] 14.3 % Normal 11.5-15.0 [facility] Comment on above: Order Comment: Speci men Type: BLOOD SPECIMENOrdering Facility: [facility] Address: [address] [place] [address] Performed By: #### 5 7021-8 ####[facility] LABCLIA [id number] [place] [address] Hematocrit (Bld) [Volume fraction] 35.3 % Low 39.0-51.0 [facility] Comment on above: Order Comment: Speci men Type: BLOOD SPECIMENOrdering Facility: [facility] Address: [address] [place] [address] Performed By: #### 5 7021-8 ####[facility] LABCLIA [id number] [place] [address] Hemoglobin (Bld) [Mass/Vol] 11.7 g/dL Low 13.0-17.0 [facility] Comment on above: Order Comment: Speci men Type: BLOOD SPECIMENOrdering Facility: [facility] Address: [address] [place] [address] Performed By: #### 5 7021-8 ####[facility] LABIA [id number] [place] [address] Immature granulocytes (Bld) [#/Vol] 0.05 10*3/uL Normal <0.10 [facility] Comment on above: Order Comment: Speci men Type: BLOOD SPECIMENOrdering Facility: [facility] Address: [address] [place] [address] Performed By: #### 5 7021-8 ####[facility] LABCLIA [id number] [place] [address] Immature granulocytes/100 WBC (Bld) 0.4 % Normal [facility] Comment on above: Order Comment: Speci men Type: BLOOD SPECIMENOrdering Facility: [facility] Address: [address] [place] [address] Performed By: #### 5 7021-8 ####[facility] LABIA [id number] [place] [address] Lymphocytes (Bld) [#/Vol] 1.68 10*3/uL Normal 1.00-4.00 [facility] Comment on above: Order Comment: Speci men Type: BLOOD SPECIMENOrdering Facility: [facility] Address: [address] [address] Performed By: #### 5 7021-8 ####[facility] LABCLIA [id number] [place] [address] Lymphocytes/100 WBC (Bld) 14.6 % Normal [facility] Comment on above: Order Comment: Speci men Type: BLOOD SPECIMENOrdering Facility: [facility] Address: [address] [place] [address] Performed By: #### 5 7021-8 ####[facility] LABCLIA [id number] [place] [address] MCH (RBC) [Entitic mass] 32.4 pg Normal 26.0-34.0 [facility] Comment on above: Order Comment: Speci men Type: BLOOD SPECIMENOrdering Facility: [facility] Address: [address] [address] Performed By: #### 5 7021-8 ####[facility] LABIA [id number] [place] [address] MCHC (RBC) [Mass/Vol] 33.1 g/dL Normal 30.5-36.0 [facility] Comment on above: Order Comment: Speci men Type: BLOOD SPECIMENOrdering Facility: [facility] Address: [address] [address] Performed By: #### 5 7021-8 ####[facility] LABIA [id number] [place] [address] MCV (RBC) [Entitic vol] 97.8 fL Normal 80.0-100.0 [facility] Comment on above: Order Comment: Speci men Type: BLOOD SPECIMENOrdering Facility: [facility] Address: [address] [place] [address] Performed By: #### 5 7021-8 ####[facility] LABIA [id number] [place] [address] Monocytes (Bld) [#/Vol] 0.70 10*3/uL Normal <0.87 [facility] Comment on above: Order Comment: Speci men Type: BLOOD SPECIMENOrdering Facility: [facility] Address: [address] [address] Performed By: #### 5 7021-8 ####[facility] LABCLIA [id number] [place] [address] Monocytes/100 WBC (Bld) 6.1 % Normal [facility] Comment on above: Order Comment: Speci men Type: BLOOD SPECIMENOrdering Facility: [facility] Address: [address] [address] Performed By: #### 5 7021-8 ####[facility] LABCLIA [id number] [place] [address] Neutrophils (Bld) [#/Vol] 9.04 10*3/uL High 1.45-7.50 [facility] Comment on above: Order Comment: Speci men Type: BLOOD SPECIMENOrdering Facility: [facility] Address: [address] [address] Performed By: #### 5 7021-8 ####[facility] LABCLIA [id number] [place] [address] Neutrophils/100 WBC (Bld) 78.5 % Normal [facility] Comment on above: Order Comment: Speci men Type: BLOOD SPECIMENOrdering Facility: [facility] Address: [address] Performed By: #### 5 7021-8 ####[facility] LABCLIA [id number] [place] [address] Nucleated RBC (Bld) [#/Vol] 10*3/uL Normal <0.01 [facility] Comment on above: Order Comment: Speci men Type: BLOOD SPECIMENOrdering Facility: [facility] Address: [address] [address] Performed By: #### 5 7021-8 ####[facility] LABCLIA [id number] [place] [address] Nucleated RBC/100 WBC (Bld) [Ratio] 0.0 /[address] [facility] Comment on above: Order Comment: Speci men Type: BLOOD SPECIMENOrdering Facility: [facility] Address: [address] [place] [address] Performed By: #### 5 7021-8 ####[facility] LABCLIA [id number] [place] [address] Platelet mean volume (Bld) [Entitic vol] 10.1 fL Normal 9.0-12.7 [facility] Comment on above: Order Comment: Speci men Type: BLOOD SPECIMENOrdering Facility: [facility] Address: [address] [place] [address] Performed By: #### 5 7021-8 ####[facility] LABIA [id number] [place] [address] Platelets (Bld) [#/Vol] 267 10*3/uL Normal 150-400 [facility] Comment on above: Order Comment: Speci men Type: BLOOD SPECIMENOrdering Facility: [facility] Address: [address] [place] [address] Performed By: #### 5 7021-8 ####[facility] LABCLIA [id number] [place] [address] RBC (Bld) [#/Vol] 3.61 10*6/uL Low 4.20-6.00 [facility] Comment on above: Order Comment: Speci men Type: BLOOD SPECIMENOrdering Facility: [facility] Address: [address] [place] [address] Performed By: #### 5 7021-8 ####[facility] LABCLIA [id number] [place] [address] WBC (Bld) [#/Vol] 11.51 10*3/uL High 3.70-11.00 [facility] Comment on above: Order Comment: Speci men Type: BLOOD SPECIMENOrdering Facility: [facility] Address: [place] [address] Performed By: #### 5 7021-8 ####[facility] LABCLIA [id number] [place] [address] Basophils (Bld) [#/Vol] <0.11 k/uL [facility] Basophils/100 WBC (Bld) 0.2 % [facility] Differential cell count method Nom (Bld) Auto [facility] Eosinophils (Bld) [#/Vol] <0.46 k/uL [facility] Eosinophils/100 WBC (Bld) 0.2 % [facility] Erythrocyte distribution width (RBC) [Ratio] 14.3 % 11.5 - 15.0 % [facility] Hematocrit (Bld) [Volume fraction] 35.3 % Low 39.0 - 51.0 % [facility] Hemoglobin (Bld) [Mass/Vol] 11.7 g/dL Low 13.0 - 17.0 g/dL [facility] Immature granulocytes (Bld) [#/Vol] 0.05 10*3/uL <0.10 k/uL [facility] Immature granulocytes/100 WBC (Bld) 0.4 % [facility] Lymphocytes (Bld) [#/Vol] 1.68 10*3/uL 1.00 - 4.00 k/uL [facility] Lymphocytes/100 WBC (Bld) 14.6 % [facility] MCH (RBC) [Entitic mass] 32.4 pg 26.0 - 34.0 pg [facility] MCHC (RBC) [Mass/Vol] 33.1 g/dL 30.5 - 36.0 g/dL [facility] MCV (RBC) [Entitic vol] 97.8 fL 80.0 - 100.0 fL [facility] Monocytes (Bld) [#/Vol] 0.70 10*3/uL <0.87 k/uL [facility] Monocytes/100 WBC (Bld) 6.1 % [facility] Neutrophils (Bld) [#/Vol] 9.04 10*3/uL High 1.45 - 7.50 k/uL [facility] Neutrophils/100 WBC (Bld) 78.5 % [facility] Nucleated RBC (Bld) [#/Vol] <0.01 k/uL [facility] Nucleated RBC/100 WBC (Bld) [Ratio] 0.0 /100 WBC [facility] Platelet mean volume (Bld) [Entitic vol] 10.1 fL 9.0 - 12.7 fL [facility] Platelets (Bld) [#/Vol] 267 10*3/uL 150 - 400 k/uL [facility] RBC (Bld) [#/Vol] 3.61 10*6/uL Low 4.20 - 6.0 0 m/uL [facility] WBC (Bld) [#/Vol] 11.51 10*3/uL High 3.70 - 11 .00 k/uL [facility] CNOVSPon 02-01-[address] [facility] CNPNon 02-01-[address] [facility] Cancer Ag19-9 SerPl-aCncon 0 02-01-2023 Cancer Ag 19-9 Qn 2276.0 [arb'U]/mL High <36.0 [facility] Comment on above: Order Comment: Speci men Type: BLOOD SPECIMENOrdering Facility: [facility] Address: [address] [address] Result Comment: [facility] er antigen 19-9 test is used as an aid in monitoring response to treatment or recurrence in patients with established pancreatic, hepatobiliary, or gastrointestinal malignancies. Clinical correlation is required.The CA 19-9 Antigen test was performed using the [employer] DXI paramagnetic particle chemiluminescent immunoassay method. Results obtained with different assay methods or kits cannot be used interchangeably. Performed By: #### 2 4108-3 ####[facility] LABCLIA [id number] [facility] [id number] [address] [facility] Comprehensive metabolic 2000 panelon 02-01-2023 Albumin [Mass/Vol] 4.2 g/dL Normal 3.9-4.9 [facility] Comment on above: Order Comment: Speci men Type: BLOOD SPECIMENOrdering Facility: [facility] Address: [address] [id number] Performed By: #### 2 4323-8 ####[facility] LABCLIA [id number] [place] [address] ALP [Catalytic activity/Vol] 139 U/L High 38-113 [facility] Comment on above: Order Comment: Speci men Type: BLOOD SPECIMENOrdering Facility: [facility] Address: [address] [address] Performed By: #### 2 4323-8 ####[facility] LABCLIA [id number] [place] [address] ALT [Catalytic activity/Vol] 23 U/L Normal 10-54 [facility] Comment on above: Order Comment: Speci men Type: BLOOD SPECIMENOrdering Facility: [facility] Address: [address] [place] [address] Performed By: #### 2 4323-8 ####[facility] LABCLIA [id number] [place] [address] Anion gap [Moles/Vol] 11 mmol/L Normal 9-18 [facility] Comment on above: Order Comment: Speci men Type: BLOOD SPECIMENOrdering Facility: [facility] Address: [address] [place] [address] Performed By: #### 2 4323-8 ####[facility] LABCLIA [id number] [place] [address] AST [Catalytic activity/Vol] 19 U/L Normal 14-40 [facility] Comment on above: Order Comment: Speci men Type: BLOOD SPECIMENOrdering Facility: [facility] Address: [address] [address] Performed By: #### 2 4323-8 ####[facility] LABCLIA [id number] [place] [address] Bilirubin [Mass/Vol] 1.3 mg/dL Normal 0.2-1.3 [facility] Comment on above: Order Comment: Speci men Type: BLOOD SPECIMENOrdering Facility: [facility] Address: [address] [address] Performed By: #### 2 4323-8 ####[facility] LABCLIA [id number] [place] [address] Calcium [Mass/Vol] 10.7 mg/dL High 8.5-10.2 [facility] Comment on above: Order Comment: Speci men Type: BLOOD SPECIMENOrdering Facility: [facility] Address: [address] [address] Performed By: #### 2 4323-8 ####[facility] LABCLIA [id number] [place] [address] Chloride [Moles/Vol] 102 mmol/L Normal 97-105 [facility] Comment on above: Order Comment: Speci men Type: BLOOD SPECIMENOrdering Facility: [facility] Address: [address] [address] Performed By: #### 2 4323-8 ####[facility] LABCLIA [id number] [place] [address] CO2 [Moles/Vol] 23 mmol/L Normal 22-30 [facility] Comment on above: Order Comment: Speci men Type: BLOOD SPECIMENOrdering Facility: [facility] Address: [address] [place] [address] Performed By: #### 2 4323-8 ####[facility] LABCLIA [id number] [place] [address] Creatinine [Mass/Vol] 0.97 mg/dL Normal 0.73-1.22 [facility] Comment on above: Order Comment: Speci men Type: BLOOD SPECIMENOrdering Facility: [facility] Address: [address] [place] [address] Performed By: #### 2 4323-8 ####[facility] LABCLIA [id number] [place] [address] Creatinine and Glomerular filtration rate.predicted panel (S/P/Bld) 83 mL/min/1.73m??? Normal >=60 [facility] Comment on above: Order Comment: Noemí hoff Type: BLOOD SPECIMENOrdering Facility: [facility] Address: [address] [place], [place] [id number] Result Comment: Kathy mated Glomerular Filtration Rate (eGFR) is calculated using the 2020 CKD-EPI creatinine equation. This equation utilizes serum creatinine, sex, and age as parameters. The creatinine assay has traceable calibration to isotope dilution-mass spectrometry. Refer to KDIGO guidelines for clinical interpretation. In patients with unstable renal function, e.g. those with acute kidney injury, the eGFR may not accurately reflect actual GFR. Performed By: #### 2 4323-8 ####[facility] LABCLIA [id number] [place] [address] Glucose [Mass/Vol] 172 mg/dL High 74-99 [facility] Comment on above: Order Comment: Noemí hoff Type: BLOOD SPECIMENOrdering Facility: [facility] Address: [address] [place], [place] [id number] Result Comment: The [place] [employer] (ADA) provides guidance for cutoff values for fasting glucose and random glucose. The ADA defines fasting as no caloric intake for at least 8 hours. Fasting plasma glucose results between 100 to 125 mg/dL indicate increased risk for diabetes (prediabetes).Fasting plasma glucose results greater than or equal to 126 mg/dL meet the criteria for diagnosis of diabetes. In the absence of unequivocal hyperglycemia, results should be confirmed by repeat testing. In a patient with classic symptoms of hyperglycemia or hyperglycemic crisis, random plasma glucose results greater than or equal to 200 mg/dL meet the criteria for diagnosis of diabetes.Reference: Standards of Medical Care in Diabetes 2016, [place] [employer]. Diabetes Care. 2016.39(Suppl 1). Performed By: #### 2 4323-8 ####[facility] LABCLIA [id number] [place] [address] Potassium [Moles/Vol] 4.4 mmol/L Normal 3.7-5.1 [facility] Comment on above: Order Comment: Noemí hoff Type: BLOOD SPECIMENOrdering Facility: [facility] Address: [address] [address] Performed By: #### 2 4323-8 ####[facility] LABCLIA [id number] [place] [address] Protein [Mass/Vol] 7.2 g/dL Normal 6.3-8.0 [facility] Comment on above: Order Comment: Speci men Type: BLOOD SPECIMENOrdering Facility: [facility] Address: [address] [address] Performed By: #### 2 4323-8 ####[facility] LABCLIA [id number] [place] [address] Sodium [Moles/Vol] 136 mmol/L Normal 136-144 [facility] Comment on above: Order Comment: Speci men Type: BLOOD SPECIMENOrdering Facility: [facility] Address: [address] [address] Performed By: #### 2 4323-8 ####[facility] LABCLIA [id number] [place] [address] Urea nitrogen [Mass/Vol] 22 mg/dL Normal 9-24 [facility] Comment on above: Order Comment: Speci men Type: BLOOD SPECIMENOrdering Facility: [facility] Address: [address] [place] [address] Performed By: #### 2 4323-8 ####[facility] LABCLIA [id number] [place] [address] Albumin [Mass/Vol] 4.2 g/dL 3.9 - 4.9 g/dL [facility] ALP [Catalytic activity/Vol] 139 U/L High 38 - 113 U/L [facility] ALT [Catalytic activity/Vol] 23 U/L 10 - 54 U/L [facility] Anion gap [Moles/Vol] 11 mmol/L 9 - 18 mmol/L [facility] AST [Catalytic activity/Vol] 19 U/L 14 - 40 U/L [facility] Bilirubin [Mass/Vol] 1.3 mg/dL 0.2 - 1.3 mg/dL [facility] Calcium [Mass/Vol] 10.7 mg/dL High 8.5 - 10. 2 mg/dL [facility] Chloride [Moles/Vol] 102 mmol/L 97 - 105 mmol/L [facility] CO2 [Moles/Vol] 23 mmol/L 22 - 30 mmol/L [facility] Creatinine [Mass/Vol] 0.97 mg/dL 0.73 - 1.22 mg/dL [facility] Estimated Glomerular Filtration Rate 83 mL/min/1.73m >=60 mL/min/1.73m [facility] Glucose [Mass/Vol] 172 mg/dL High 74 - 99 mg/dL [facility] Potassium [Moles/Vol] 4.4 mmol/L 3.7 - 5.1 mmol/L [facility] Protein [Mass/Vol] 7.2 g/dL 6.3 - 8.0 g/dL [facility] Sodium [Moles/Vol] 136 mmol/L 136 - 144 mmol/L [facility] Urea nitrogen [Mass/Vol] 22 mg/dL 9 - 24 mg/dL [facility] CBC W Auto Differential pane l (Bld)on 01-04-2023 Basophils (Bld) [#/Vol] 0.05 10*3/uL Normal <0.11 [facility] Comment on above: Order Comment: Speci men Type: BLOOD SPECIMENOrdering Facility: [facility] Address: [address] [place] [address] Performed By: #### 5 7021-8 ####[facility] LABCLIA [id number] [place] [address] Basophils/100 WBC (Bld) 0.5 % Normal [facility] Comment on above: Order Comment: Speci men Type: BLOOD SPECIMENOrdering Facility: [facility] Address: [address] [place] [address] Performed By: #### 5 7021-8 ####[facility] LABCLIA [id number] [place] [address] Differential cell count method Nom (Bld) Auto Normal [facility] Comment on above: Order Comment: Speci men Type: BLOOD SPECIMENOrdering Facility: [facility] Address: [address] [place] [address] Performed By: #### 5 7021-8 ####[facility] LABCLIA [id number] [place] [address] Eosinophils (Bld) [#/Vol] 0.04 10*3/uL Normal <0.46 [facility] Comment on above: Order Comment: Speci men Type: BLOOD SPECIMENOrdering Facility: [facility] Address: [address] [address] Performed By: #### 5 7021-8 ####[facility] LABCLIA [id number] [place] [address] Eosinophils/100 WBC (Bld) 0.4 % Normal [facility] Comment on above: Order Comment: Speci men Type: BLOOD SPECIMENOrdering Facility: [facility] Address: [address] [place] [address] Performed By: #### 5 7021-8 ####[facility] LABCLIA [id number] [place] [address] Erythrocyte distribution width (RBC) [Ratio] 16.8 % High 11.5-15.0 [facility] Comment on above: Order Comment: Speci men Type: BLOOD SPECIMENOrdering Facility: [facility] Address: [address] [place] [address] Performed By: #### 5 7021-8 ####[facility] LABCLIA [id number] [place] [address] Hematocrit (Bld) [Volume fraction] 35.9 % Low 39.0-51.0 [facility] Comment on above: Order Comment: Speci men Type: BLOOD SPECIMENOrdering Facility: [facility] Address: [address] [place] [address] Performed By: #### 5 7021-8 ####[facility] LABCLIA [id number] [place] [address] Hemoglobin (Bld) [Mass/Vol] 11.7 g/dL Low 13.0-17.0 [facility] Comment on above: Order Comment: Speci men Type: BLOOD SPECIMENOrdering Facility: [facility] Address: [address] [place] [address] Performed By: #### 5 7021-8 ####[facility] LABCLIA [id number] [place] [address] Immature granulocytes (Bld) [#/Vol] 0.06 10*3/uL Normal <0.10 [facility] Comment on above: Order Comment: Speci men Type: BLOOD SPECIMENOrdering Facility: [facility] Address: [address] [place] [address] Performed By: #### 5 7021-8 ####[facility] LABCLIA [id number] [place] [address] Immature granulocytes/100 WBC (Bld) 0.6 % Normal [facility] Comment on above: Order Comment: Speci men Type: BLOOD SPECIMENOrdering Facility: [facility] Address: [address] [place] [address] Performed By: #### 5 7021-8 ####[facility] LABCLIA [id number] [place] [address] Lymphocytes (Bld) [#/Vol] 1.86 10*3/uL Normal 1.00-4.00 [facility] Comment on above: Order Comment: Speci men Type: BLOOD SPECIMENOrdering Facility: [facility] Address: [address] [place] [address] Performed By: #### 5 7021-8 ####[facility] LABCLIA [id number] [place] [address] Lymphocytes/100 WBC (Bld) 18.9 % Normal [facility] Comment on above: Order Comment: Speci men Type: BLOOD SPECIMENOrdering Facility: [facility] Address: [address] [address] Performed By: #### 5 7021-8 ####[facility] LABIA [id number] [place] [address] MCH (RBC) [Entitic mass] 33.2 pg Normal 26.0-34.0 [facility] Comment on above: Order Comment: Speci men Type: BLOOD SPECIMENOrdering Facility: [facility] Address: [address] [place] [address] Performed By: #### 5 7021-8 ####[facility] LABIA [id number] [place] [address] MCHC (RBC) [Mass/Vol] 32.6 g/dL Normal 30.5-36.0 [facility] Comment on above: Order Comment: Speci men Type: BLOOD SPECIMENOrdering Facility: [facility] Address: [address] [place] [address] Performed By: #### 5 7021-8 ####[facility] LABIA [id number] [place] [address] MCV (RBC) [Entitic vol] 102.0 fL High 80.0-100.0 [facility] Comment on above: Order Comment: Speci men Type: BLOOD SPECIMENOrdering Facility: [facility] Address: [address] [place] [address] Performed By: #### 5 7021-8 ####[facility] LABIA [id number] [place] [address] Monocytes (Bld) [#/Vol] 0.87 10*3/uL High <0.87 [facility] Comment on above: Order Comment: Speci men Type: BLOOD SPECIMENOrdering Facility: [facility] Address: [address] [place] [address] Performed By: #### 5 7021-8 ####[facility] LABIA [id number] [place] [address] Monocytes/100 WBC (Bld) 8.8 % Normal [facility] Comment on above: Order Comment: Speci men Type: BLOOD SPECIMENOrdering Facility: [facility] Address: [address] [address] Performed By: #### 5 7021-8 ####[facility] LABCLIA [id number] [place] [address] Neutrophils (Bld) [#/Vol] 6.98 10*3/uL Normal 1.45-7.50 [facility] Comment on above: Order Comment: Speci men Type: BLOOD SPECIMENOrdering Facility: [facility] Address: [address] [address] Performed By: #### 5 7021-8 ####[facility] LABCLIA [id number] [place] [address] Neutrophils/100 WBC (Bld) 70.8 % Normal [facility] Comment on above: Order Comment: Speci men Type: BLOOD SPECIMENOrdering Facility: [facility] Address: [address] [address] Performed By: #### 5 7021-8 ####[facility] LABCLIA [id number] [place] [address] Nucleated RBC (Bld) [#/Vol] 10*3/uL Normal <0.01 [facility] Comment on above: Order Comment: Speci men Type: BLOOD SPECIMENOrdering Facility: [facility] Address: [address] [address] Performed By: #### 5 7021-8 ####[facility] LABCLIA [id number] [place] [address] Nucleated RBC/100 WBC (Bld) [Ratio] 0.0 /[address] [facility] Comment on above: Order Comment: Speci men Type: BLOOD SPECIMENOrdering Facility: [facility] Address: [address] [place], [place] [address] Performed By: #### 5 7021-8 ####[facility] LABCLIA [id number] [place] [address] Platelet mean volume (Bld) [Entitic vol] 10.2 fL Normal 9.0-12.7 [facility] Comment on above: Order Comment: Speci men Type: BLOOD SPECIMENOrdering Facility: [facility] Address: [address] [place] [address] Performed By: #### 5 7021-8 ####[facility] LABCLIA [id number] [place] [address] Platelets (Bld) [#/Vol] 329 10*3/uL Normal 150-400 [facility] Comment on above: Order Comment: Speci men Type: BLOOD SPECIMENOrdering Facility: [facility] Address: [address] [place] [address] Performed By: #### 5 7021-8 ####[facility] LABIA [id number] [place] [address] RBC (Bld) [#/Vol] 3.52 10*6/uL Low 4.20-6.00 [facility] Comment on above: Order Comment: Speci men Type: BLOOD SPECIMENOrdering Facility: [facility] Address: [address] [place] [address] Performed By: #### 5 7021-8 ####[facility] LABIA [id number] [place] [address] WBC (Bld) [#/Vol] 9.86 10*3/uL Normal 3.70-11.00 [facility] Comment on above: Order Comment: Speci men Type: BLOOD SPECIMENOrdering Facility: [facility] Address: [address] [place] [address] Performed By: #### 5 7021-8 ####[facility] LABIA [id number] [place] [address] CNOVSPon 01-04-[address] [facility] Cancer Ag19-9 SerPl-aCncon 0 01-04-2023 Cancer Ag 19-9 Qn 1947.0 [arb'U]/mL High <36.0 [facility] Comment on above: Order Comment: Speci men Type: BLOOD SPECIMENOrdering Facility: [facility] Address: [address] [address] Result Comment: [facility] er antigen 19-9 test is used as an aid in monitoring response to treatment or recurrence in patients with established pancreatic, hepatobiliary, or gastrointestinal malignancies. Clinical correlation is required.The CA 19-9 Antigen test was performed using the Elle [employer] Unicel DXI paramagnetic particle chemiluminescent immunoassay method. Results obtained with different assay methods or kits cannot be used interchangeably. Performed By: #### 2 4108-3 ####[facility] LABCLIA [id number] [address] OF [facility] Comprehensive metabolic 2000 panelon 01-04-2023 Albumin [Mass/Vol] 4.1 g/dL Normal 3.9-4.9 [facility] Comment on above: Order Comment: Speci men Type: BLOOD SPECIMENOrdering Facility: [facility] Address: [address] [address] Performed By: #### 2 4323-8 ####[facility] LABCLIA [id number] [place] [address] ALP [Catalytic activity/Vol] 138 U/L High 38-113 [facility] Comment on above: Order Comment: Speci men Type: BLOOD SPECIMENOrdering Facility: [facility] Address: [address] [address] Performed By: #### 2 4323-8 ####[facility] LABCLIA [id number] [place] [address] ALT [Catalytic activity/Vol] 34 U/L Normal 10-54 [facility] Comment on above: Order Comment: Speci men Type: BLOOD SPECIMENOrdering Facility: [facility] Address: [address] [place] [address] Performed By: #### 2 4323-8 ####[facility] LABCLIA [id number] [place] [address] Anion gap [Moles/Vol] 8 mmol/L Low 9-18 [facility] Comment on above: Order Comment: Speci men Type: BLOOD SPECIMENOrdering Facility: [facility] Address: [address] [place] [address] Performed By: #### 2 4323-8 ####[facility] LABCLIA [id number] [place] [address] AST [Catalytic activity/Vol] 25 U/L Normal 14-40 [facility] Comment on above: Order Comment: Speci men Type: BLOOD SPECIMENOrdering Facility: [facility] Address: [address] [place] [address] Performed By: #### 2 4323-8 ####[facility] LABCLIA [id number] [place] [address] Bilirubin [Mass/Vol] 0.9 mg/dL Normal 0.2-1.3 [facility] Comment on above: Order Comment: Speci men Type: BLOOD SPECIMENOrdering Facility: [facility] Address: [address] [place] [address] Performed By: #### 2 4323-8 ####[facility] LABCLIA [id number] [place] [address] Calcium [Mass/Vol] 10.3 mg/dL High 8.5-10.2 [facility] Comment on above: Order Comment: Speci men Type: BLOOD SPECIMENOrdering Facility: [facility] Address: [address] [place] [address] Performed By: #### 2 4323-8 ####[facility] LABCLIA [id number] [place] [address] Chloride [Moles/Vol] 104 mmol/L Normal 97-105 [facility] Comment on above: Order Comment: Speci men Type: BLOOD SPECIMENOrdering Facility: [facility] Address: [address] [place] [address] Performed By: #### 2 4323-8 ####[facility] LABCLIA [id number] [place] [address] CO2 [Moles/Vol] 24 mmol/L Normal 22-30 [facility] Comment on above: Order Comment: Speci men Type: BLOOD SPECIMENOrdering Facility: [facility] Address: [address] [place] [address] Performed By: #### 2 4323-8 ####[facility] LABCLIA [id number] [place] [address] Creatinine [Mass/Vol] 0.80 mg/dL Normal 0.73-1.22 [facility] Comment on above: Order Comment: Speci men Type: BLOOD SPECIMENOrdering Facility: [facility] Address: [address] [place] [address] Performed By: #### 2 4323-8 ####[facility] LABCLIA [id number] [place] [address] ESTIMATED GLOMERULAR FILTRATION RATE 95 mL/min/1.73m??? Normal >=60 [facility] Comment on above: Order Comment: Speci men Type: BLOOD SPECIMENOrdering Facility: [facility] Address: [address] [place] [address] Result Comment: Kathy mated Glomerular Filtration Rate (eGFR) is calculated using the 2020 CKD-EPI creatinine equation. This equation utilizes serum creatinine, sex, and age as parameters. The creatinine assay has traceable calibration to isotope dilution-mass spectrometry. Refer to KDIGO guidelines for clinical interpretation. In patients with unstable renal function, e.g. those with acute kidney injury, the eGFR may not accurately reflect actual GFR. Performed By: #### 2 4323-8 ####[facility] LABCLIA [id number] [place] [address] Glucose [Mass/Vol] 188 mg/dL High 74-99 [facility] Comment on above: Order Comment: Speci men Type: BLOOD SPECIMENOrdering Facility: [facility] Address: [address] [place] [address] Result Comment: The [place] [employer] (ADA) provides guidance for cutoff values for fasting glucose and random glucose. The ADA defines fasting as no caloric intake for at least 8 hours. Fasting plasma glucose results between 100 to 125 mg/dL indicate increased risk for diabetes (prediabetes).Fasting plasma glucose results greater than or equal to 126 mg/dL meet the criteria for diagnosis of diabetes. In the absence of unequivocal hyperglycemia, results should be confirmed by repeat testing. In a patient with classic symptoms of hyperglycemia or hyperglycemic crisis, random plasma glucose results greater than or equal to 200 mg/dL meet the criteria for diagnosis of diabetes.Reference: Standards of Medical Care in Diabetes 2016, [place] [employer]. Diabetes Care. 2016.39(Suppl 1). Performed By: #### 2 4323-8 ####[facility] LABCLIA [id number] [place] [address] Potassium [Moles/Vol] 4.5 mmol/L Normal 3.7-5.1 [facility] Comment on above: Order Comment: Rajanii men Type: BLOOD SPECIMENOrdering Facility: [facility] Address: [address] [place] [address] Performed By: #### 2 4323-8 ####[facility] LABCLIA [id number] [place] [address] Protein [Mass/Vol] 7.0 g/dL Normal 6.3-8.0 [facility] Comment on above: Order Comment: Speci men Type: BLOOD SPECIMENOrdering Facility: [facility] Address: [address] [place] [address] Performed By: #### 2 4323-8 ####[facility] LABCLIA [id number] [place] [address] Sodium [Moles/Vol] 136 mmol/L Normal 136-144 [facility] Comment on above: Order Comment: Speci men Type: BLOOD SPECIMENOrdering Facility: [facility] Address: [address] [place] [address] Performed By: #### 2 4323-8 ####[facility] LABCLIA [id number] [place] [address] Urea nitrogen [Mass/Vol] 21 mg/dL Normal 9-24 [facility] Comment on above: Order Comment: Speci men Type: BLOOD SPECIMENOrdering Facility: [facility] Address: [address] [place] [address] Performed By: #### 2 4323-8 ####[facility] LABCLIA [id number] [place] [address] CBC W Auto Differential pane l (Bld)on 12-21-2022 Basophils (Bld) [#/Vol] 0.03 10*3/uL Normal <0.11 [facility] Comment on above: Order Comment: Speci men Type: BLOOD SPECIMENOrdering Facility: [facility] Address: [address] [place] [address] Performed By: #### 5 7021-8 ####[facility] LABIA [id number] [place] [address] Basophils/100 WBC (Bld) 0.8 % Normal [facility] Comment on above: Order Comment: Speci men Type: BLOOD SPECIMENOrdering Facility: [facility] Address: [address] [place] [address] Performed By: #### 5 7021-8 ####[facility] LABCLIA [id number] [place] [address] Differential cell count method Nom (Bld) Auto Normal [facility] Comment on above: Order Comment: Speci men Type: BLOOD SPECIMENOrdering Facility: [facility] Address: [address] [place] [address] Performed By: #### 5 7021-8 ####[facility] LABCLIA [id number] [place] [address] Eosinophils (Bld) [#/Vol] 10*3/uL Normal <0.46 [facility] Comment on above: Order Comment: Speci men Type: BLOOD SPECIMENOrdering Facility: [facility] Address: [address] [place] [address] Performed By: #### 5 7021-8 ####[facility] LABCLIA [id number] [place] [address] Eosinophils/100 WBC (Bld) 0.0 % Normal [facility] Comment on above: Order Comment: Speci men Type: BLOOD SPECIMENOrdering Facility: [facility] Address: [address] [place] [address] Performed By: #### 5 7021-8 ####[facility] LABCLIA [id number] [place] [address] Erythrocyte distribution width (RBC) [Ratio] 17.4 % High 11.5-15.0 [facility] Comment on above: Order Comment: Speci men Type: BLOOD SPECIMENOrdering Facility: [facility] Address: [address] [place] [address] Performed By: #### 5 7021-8 ####[facility] LABCLIA [id number] [place] [address] Hematocrit (Bld) [Volume fraction] 30.0 % Low 39.0-51.0 [facility] Comment on above: Order Comment: Speci men Type: BLOOD SPECIMENOrdering Facility: [facility] Address: [address] [place] [address] Performed By: #### 5 7021-8 ####[facility] LABCLIA [id number] [place] [address] Hemoglobin (Bld) [Mass/Vol] 9.7 g/dL Low 13.0-17.0 [facility] Comment on above: Order Comment: Speci men Type: BLOOD SPECIMENOrdering Facility: [facility] Address: [address] [address] Performed By: #### 5 7021-8 ####[facility] LABCLIA [id number] [place] [address] Immature granulocytes (Bld) [#/Vol] 0.05 10*3/uL Normal <0.10 [facility] Comment on above: Order Comment: Speci men Type: BLOOD SPECIMENOrdering Facility: [facility] Address: [address] [address] Performed By: #### 5 7021-8 ####[facility] LABCLIA [id number] [place] [address] Immature granulocytes/100 WBC (Bld) 1.3 % Normal [facility] Comment on above: Order Comment: Speci men Type: BLOOD SPECIMENOrdering Facility: [facility] Address: [address] [place] [address] Performed By: #### 5 7021-8 ####[facility] LABCLIA [id number] [place] [address] Lymphocytes (Bld) [#/Vol] 1.41 10*3/uL Normal 1.00-4.00 [facility] Comment on above: Order Comment: Speci men Type: BLOOD SPECIMENOrdering Facility: [facility] Address: [address] [place] [address] Performed By: #### 5 7021-8 ####[facility] LABCLIA [id number] [place] [address] Lymphocytes/100 WBC (Bld) 37.6 % Normal [facility] Comment on above: Order Comment: Speci men Type: BLOOD SPECIMENOrdering Facility: [facility] Address: [address] [place] [address] Performed By: #### 5 7021-8 ####[facility] LABCLIA [id number] [place] [address] MCH (RBC) [Entitic mass] 32.6 pg Normal 26.0-34.0 [facility] Comment on above: Order Comment: Speci men Type: BLOOD SPECIMENOrdering Facility: [facility] Address: [address] [place] [address] Performed By: #### 5 7021-8 ####[facility] LABCLIA [id number] [place] [address] MCHC (RBC) [Mass/Vol] 32.3 g/dL Normal 30.5-36.0 [facility] Comment on above: Order Comment: Speci men Type: BLOOD SPECIMENOrdering Facility: [facility] Address: [address] [place] [address] Performed By: #### 5 7021-8 ####[facility] LABIA [id number] [place] [address] MCV (RBC) [Entitic vol] 100.7 fL High 80.0-100.0 [facility] Comment on above: Order Comment: Speci men Type: BLOOD SPECIMENOrdering Facility: [facility] Address: [address] [place] [address] Performed By: #### 5 7021-8 ####[facility] LABIA [id number] [place] [address] Monocytes (Bld) [#/Vol] 0.32 10*3/uL Normal <0.87 [facility] Comment on above: Order Comment: Speci men Type: BLOOD SPECIMENOrdering Facility: [facility] Address: [address] [address] Performed By: #### 5 7021-8 ####[facility] LABIA [id number] [place] [address] Monocytes/100 WBC (Bld) 8.5 % Normal [facility] Comment on above: Order Comment: Speci men Type: BLOOD SPECIMENOrdering Facility: [facility] Address: [address] [place] [address] Performed By: #### 5 7021-8 ####[facility] LABCLIA [id number] [place] [address] Neutrophils (Bld) [#/Vol] 1.94 10*3/uL Normal 1.45-7.50 [facility] Comment on above: Order Comment: Speci men Type: BLOOD SPECIMENOrdering Facility: [facility] Address: [address] [place] [address] Performed By: #### 5 7021-8 ####[facility] LABCLIA [id number] [place] [address] Neutrophils/100 WBC (Bld) 51.8 % Normal [facility] Comment on above: Order Comment: Speci men Type: BLOOD SPECIMENOrdering Facility: [facility] Address: [address] [place] [address] Performed By: #### 5 7021-8 ####[facility] LABCLIA [id number] [place] [address] Nucleated RBC (Bld) [#/Vol] 10*3/uL Normal <0.01 [facility] Comment on above: Order Comment: Speci men Type: BLOOD SPECIMENOrdering Facility: [facility] Address: [address] [place] [address] Performed By: #### 5 7021-8 ####[facility] LABCLIA [id number] [place] [address] Nucleated RBC/100 WBC (Bld) [Ratio] 0.0 /[address] [facility] Comment on above: Order Comment: Speci men Type: BLOOD SPECIMENOrdering Facility: [facility] Address: [address] [place] [address] Performed By: #### 5 7021-8 ####[facility] LABCLIA [id number] [place] [address] Platelet mean volume (Bld) [Entitic vol] 9.5 fL Normal 9.0-12.7 [facility] Comment on above: Order Comment: Speci men Type: BLOOD SPECIMENOrdering Facility: [facility] Address: [address] [place] [address] Performed By: #### 5 7021-8 ####[facility] LABIA [id number] [place] [address] Platelets (Bld) [#/Vol] 365 10*3/uL Normal 150-400 [facility] Comment on above: Order Comment: Speci men Type: BLOOD SPECIMENOrdering Facility: [facility] Address: [address] [place] [address] Performed By: #### 5 7021-8 ####[facility] LABIA [id number] [place] [address] RBC (Bld) [#/Vol] 2.98 10*6/uL Low 4.20-6.00 [facility] Comment on above: Order Comment: Speci men Type: BLOOD SPECIMENOrdering Facility: [facility] Address: [address] [place] [address] Performed By: #### 5 7021-8 ####[facility] LABIA [id number] [place] [address] WBC (Bld) [#/Vol] 3.75 10*3/uL Normal 3.70-11.00 [facility] Comment on above: Order Comment: Speci men Type: BLOOD SPECIMENOrdering Facility: [facility] Address: [address] [place] [address] Performed By: #### 5 7021-8 ####[facility] LABIA [id number] [place] [address] CNOVSPon 12-21-[address] [facility] CNPNon 12-21-[address] [facility] Cancer Ag19-9 SerPl-aCncon 0 12-21-2022 Cancer Ag 19-9 Qn 1757.0 [arb'U]/mL High <36.0 [facility] Comment on above: Order Comment: Speci men Type: BLOOD SPECIMENOrdering Facility: [facility] Address: [address] [place] [address] Result Comment: [facility] er antigen 19-9 test is used as an aid in monitoring response to treatment or recurrence in patients with established pancreatic, hepatobiliary, or gastrointestinal malignancies. Clinical correlation is required.The CA 19-9 Antigen test was performed using the Elle [employer] DXI paramagnetic particle chemiluminescent immunoassay method. Results obtained with different assay methods or kits cannot be used interchangeably. Performed By: #### 2 4108-3 ####[facility] LABCLIA [id number] [place] [address] [facility] Comprehensive metabolic 2000 panelon 12-21-2022 Albumin [Mass/Vol] 3.9 g/dL Normal 3.9-4.9 [facility] Comment on above: Order Comment: Speci men Type: BLOOD SPECIMENOrdering Facility: [facility] Address: [address] [address] Performed By: #### 2 4323-8 ####[facility] LABCLIA [id number] [place] [address] ALP [Catalytic activity/Vol] 131 U/L High 38-113 [facility] Comment on above: Order Comment: Speci men Type: BLOOD SPECIMENOrdering Facility: [facility] Address: [address] [place] [address] Performed By: #### 2 4323-8 ####[facility] LABCLIA [id number] [place] [address] ALT [Catalytic activity/Vol] 27 U/L Normal 10-54 [facility] Comment on above: Order Comment: Speci men Type: BLOOD SPECIMENOrdering Facility: [facility] Address: [address] [place] [address] Performed By: #### 2 4323-8 ####[facility] LABCLIA [id number] [place] [address] Anion gap [Moles/Vol] 11 mmol/L Normal 9-18 [facility] Comment on above: Order Comment: Speci men Type: BLOOD SPECIMENOrdering Facility: [facility] Address: [address] [address] Performed By: #### 2 4323-8 ####[facility] LABCLIA [id number] [place] [address] AST [Catalytic activity/Vol] 25 U/L Normal 14-40 [facility] Comment on above: Order Comment: Speci men Type: BLOOD SPECIMENOrdering Facility: [facility] Address: [address] [address] Performed By: #### 2 4323-8 ####[facility] LABCLIA [id number] [place] [address] Bilirubin [Mass/Vol] 0.8 mg/dL Normal 0.2-1.3 [facility] Comment on above: Order Comment: Speci men Type: BLOOD SPECIMENOrdering Facility: [facility] Address: [address] [address] Performed By: #### 2 4323-8 ####[facility] LABCLIA [id number] [place] [address] Calcium [Mass/Vol] 10.5 mg/dL High 8.5-10.2 [facility] Comment on above: Order Comment: Speci men Type: BLOOD SPECIMENOrdering Facility: [facility] Address: [address] [address] Performed By: #### 2 4323-8 ####[facility] LABCLIA [id number] [place] [address] Chloride [Moles/Vol] 102 mmol/L Normal 97-105 [facility] Comment on above: Order Comment: Speci men Type: BLOOD SPECIMENOrdering Facility: [facility] Address: [address] [address] Performed By: #### 2 4323-8 ####[facility] LABCLIA [id number] [place] [address] CO2 [Moles/Vol] 22 mmol/L Normal 22-30 [facility] Comment on above: Order Comment: Speci men Type: BLOOD SPECIMENOrdering Facility: [facility] Address: [address] [place] [address] Performed By: #### 2 4323-8 ####[facility] LABCLIA [id number] [place] [address] Creatinine [Mass/Vol] 0.92 mg/dL Normal 0.73-1.22 [facility] Comment on above: Order Comment: Speci men Type: BLOOD SPECIMENOrdering Facility: [facility] Address: [address] [place] [address] Performed By: #### 2 4323-8 ####[facility] LABCLIA [id number] [place] [address] ESTIMATED GLOMERULAR FILTRATION RATE 89 mL/min/1.73m??? Normal >=60 [facility] Comment on above: Order Comment: Speci men Type: BLOOD SPECIMENOrdering Facility: [facility] Address: [address] [place] [address] Result Comment: Kathy mated Glomerular Filtration Rate (eGFR) is calculated using the 2020 CKD-EPI creatinine equation. This equation utilizes serum creatinine, sex, and age as parameters. The creatinine assay has traceable calibration to isotope dilution-mass spectrometry. Refer to KDIGO guidelines for clinical interpretation. In patients with unstable renal function, e.g. those with acute kidney injury, the eGFR may not accurately reflect actual GFR. Performed By: #### 2 4323-8 ####[facility] LABCLIA [id number] [place] [address] Glucose [Mass/Vol] 192 mg/dL High 74-99 [facility] Comment on above: Order Comment: Speci men Type: BLOOD SPECIMENOrdering Facility: [facility] Address: [address] [place] [address] Result Comment: The [place] Diabetes Association (ADA) provides guidance for cutoff values for fasting glucose and random glucose. The ADA defines fasting as no caloric intake for at least 8 hours. Fasting plasma glucose results between 100 to 125 mg/dL indicate increased risk for diabetes (prediabetes).Fasting plasma glucose results greater than or equal to 126 mg/dL meet the criteria for diagnosis of diabetes. In the absence of unequivocal hyperglycemia, results should be confirmed by repeat testing. In a patient with classic symptoms of hyperglycemia or hyperglycemic crisis, random plasma glucose results greater than or equal to 200 mg/dL meet the criteria for diagnosis of diabetes.Reference: Standards of Medical Care in Diabetes 2016, [place] [employer]. Diabetes Care. 2016.39(Suppl 1). Performed By: #### 2 4323-8 ####[facility] LABCLIA [id number] [place] [address] Potassium [Moles/Vol] 4.0 mmol/L Normal 3.7-5.1 [facility] Comment on above: Order Comment: Speci men Type: BLOOD SPECIMENOrdering Facility: [facility] Address: [address] [address] Performed By: #### 2 4323-8 ####[facility] LABCLIA [id number] [place] [address] Protein [Mass/Vol] 7.0 g/dL Normal 6.3-8.0 [facility] Comment on above: Order Comment: Speci men Type: BLOOD SPECIMENOrdering Facility: [facility] Address: [address] [address] Performed By: #### 2 4323-8 ####[facility] LABCLIA [id number] [place] [address] Sodium [Moles/Vol] 135 mmol/L Low 136-144 [facility] Comment on above: Order Comment: Speci men Type: BLOOD SPECIMENOrdering Facility: [facility] Address: [address] [address] Performed By: #### 2 4323-8 ####[facility] LABCLIA [id number] [place] [address] Urea nitrogen [Mass/Vol] 22 mg/dL Normal 9-24 [facility] Comment on above: Order Comment: Speci men Type: BLOOD SPECIMENOrdering Facility: [facility] Address: [place] [address] Performed By: #### 2 4323-8 ####[facility] LABCLIA [id number] [place] [address] CT cervical spine wo conon 0 12-15-2022 CT cervical spine wo con [facility] [address] [place] [address] [place] [address] CT Scan Report Signed Patient: Uriel Anderson MR#: [id number] 26 : 1950 Acct:[id number] Age/Sex: 72 / M ADM Date: 12/15/22 Loc: ER Room: Type: PRE ER Attending Dr: Copies to: Jemma Padilla APRN Ordering Provider: Jemma Padilla APRN Date of Service: 12/15/22 CT/CT head/brain wo con: injury ([id number]) CT/CT cervical spine wo con: fall CT BRAIN WITHOUT CONTRAST: CLINICAL HISTORY: Fall and hit head. Laceration to left forehead. COMPARISON: None TECHNIQUE: Contiguous axial unenhanced images were obtained through the brain. This CT exam was performed using one or more following dose reduction techniques: Automated exposure control, adjustment of the mA and/or kV according to patient size, or use of iterative reconstruction technique. FINDINGS: There is no evidence of midline shift, intra or extra-axial fluid collection, hemorrhage or CT evidence of stroke. Cortical atrophy with mild chronic microvascular ischemic changes. Posterior fossa appears unremarkable. Visualized intraorbital contents appear unremarkable. Visualized paranasal sinuses are clear. The surrounding soft tissues are normal. CT/CT head/brain wo con IMPRESSION: NO ACUTE INTRACRANIAL ABNORMALITY. CT CERVICAL SPINE WITHOUT CONTRAST WITH 3D RECONSTRUCTIONS: CLINICAL HISTORY: Fall. COMPARISON: None TECHNIQUE: Spiral axial unenhanced images were obtained through the cervical spine. Sagittal, coronal and 3D volume-rendered reconstructions were also reviewed. This CT exam was performed using one or more following dose reduction techniques: Automated exposure control, adjustment of the mA and/or kV according to patient size, or use of iterative reconstruction technique. FINDINGS: No acute fracture. Moderate spondylosis C5-C7. Mild scattered facet joint degenerative changes. No prevertebral soft tissue swelling. Visualized lung apices demonstrate no acute findings. Partially visualized right-sided port is in place. IMPRESSION: NO CERVICAL SPINE FRACTURE Impression dictated by: Ronnie Saldaña Jr., D.O.12/15/2022 3:56 PM Dictation Location: [place] [address] Transcribed By: [facility] 12/15/22 155 Dictated By: Ronnie Saldaña Jr, DO 12/15/22 1551 Signed By: 12/15/22 1556 [facility] CBC W Auto Differential pane l (Bld)on 12-14-2022 Basophils (Bld) [#/Vol] 0.03 10*3/uL Normal <0.11 [facility] Comment on above: Order Comment: Speci men Type: BLOOD SPECIMENOrdering Facility: [facility] Address: [address] [place] [address] Performed By: #### 5 7021-8 ####[facility] LABIA [id number] [place] [address] Basophils/100 WBC (Bld) 0.5 % Normal [facility] Comment on above: Order Comment: Speci men Type: BLOOD SPECIMENOrdering Facility: [facility] Address: [address] [place] [address] Performed By: #### 5 7021-8 ####[facility] LABCLIA [id number] [place] [address] Differential cell count method Nom (Bld) Auto Normal [facility] Comment on above: Order Comment: Speci men Type: BLOOD SPECIMENOrdering Facility: [facility] Address: [address] [address] Performed By: #### 5 7021-8 ####[facility] LABCLIA [id number] [place] [address] Eosinophils (Bld) [#/Vol] 10*3/uL Normal <0.46 [facility] Comment on above: Order Comment: Speci men Type: BLOOD SPECIMENOrdering Facility: [facility] Address: [address] [address] Performed By: #### 5 7021-8 ####[facility] LABCLIA [id number] [place] [address] Eosinophils/100 WBC (Bld) 0.2 % Normal [facility] Comment on above: Order Comment: Speci men Type: BLOOD SPECIMENOrdering Facility: [facility] Address: [address] [place] [address] Performed By: #### 5 7021-8 ####[facility] LABCLIA [id number] [place] [address] Erythrocyte distribution width (RBC) [Ratio] 19.2 % High 11.5-15.0 [facility] Comment on above: Order Comment: Speci men Type: BLOOD SPECIMENOrdering Facility: [facility] Address: [address] [place] [address] Performed By: #### 5 7021-8 ####[facility] LABCLIA [id number] [place] [address] Hematocrit (Bld) [Volume fraction] 33.4 % Low 39.0-51.0 [facility] Comment on above: Order Comment: Speci men Type: BLOOD SPECIMENOrdering Facility: [facility] Address: [address] [address] Performed By: #### 5 7021-8 ####[facility] LABCLIA [id number] [place] [address] Hemoglobin (Bld) [Mass/Vol] 10.5 g/dL Low 13.0-17.0 [facility] Comment on above: Order Comment: Speci men Type: BLOOD SPECIMENOrdering Facility: [facility] Address: [address] [place] [address] Performed By: #### 5 7021-8 ####[facility] LABCLIA [id number] [place] [address] Immature granulocytes (Bld) [#/Vol] 10*3/uL Normal <0.10 [facility] Comment on above: Order Comment: Speci men Type: BLOOD SPECIMENOrdering Facility: [facility] Address: [address] [place] [address] Performed By: #### 5 7021-8 ####[facility] LABCLIA [id number] [place] [address] Immature granulocytes/100 WBC (Bld) 0.3 % Normal [facility] Comment on above: Order Comment: Speci men Type: BLOOD SPECIMENOrdering Facility: [facility] Address: [address] [place] [address] Performed By: #### 5 7021-8 ####[facility] LABCLIA [id number] [place] [address] Lymphocytes (Bld) [#/Vol] 1.25 10*3/uL Normal 1.00-4.00 [facility] Comment on above: Order Comment: Speci men Type: BLOOD SPECIMENOrdering Facility: [facility] Address: [address] [place] [address] Performed By: #### 5 7021-8 ####[facility] LABCLIA [id number] [place] [address] Lymphocytes/100 WBC (Bld) 19.1 % Normal [facility] Comment on above: Order Comment: Speci men Type: BLOOD SPECIMENOrdering Facility: [facility] Address: [address] [place] [address] Performed By: #### 5 7021-8 ####[facility] LABCLIA [id number] [place] [address] MCH (RBC) [Entitic mass] 32.0 pg Normal 26.0-34.0 [facility] Comment on above: Order Comment: Speci men Type: BLOOD SPECIMENOrdering Facility: [facility] Address: [address] [place] [address] Performed By: #### 5 7021-8 ####[facility] LABCLIA [id number] [place] [address] MCHC (RBC) [Mass/Vol] 31.4 g/dL Normal 30.5-36.0 [facility] Comment on above: Order Comment: Speci men Type: BLOOD SPECIMENOrdering Facility: [facility] Address: [address] [place] [address] Performed By: #### 5 7021-8 ####[facility] LABCLIA [id number] [place] [address] MCV (RBC) [Entitic vol] 101.8 fL High 80.0-100.0 [facility] Comment on above: Order Comment: Speci men Type: BLOOD SPECIMENOrdering Facility: [facility] Address: [address] [place] [address] Performed By: #### 5 7021-8 ####[facility] LABCLIA [id number] [place] [address] Monocytes (Bld) [#/Vol] 0.56 10*3/uL Normal <0.87 [facility] Comment on above: Order Comment: Speci men Type: BLOOD SPECIMENOrdering Facility: [facility] Address: [address] [place] [address] Performed By: #### 5 7021-8 ####[facility] LABCLIA [id number] [place] [address] Monocytes/100 WBC (Bld) 8.6 % Normal [facility] Comment on above: Order Comment: Speci men Type: BLOOD SPECIMENOrdering Facility: [facility] Address: [address] [place] [address] Performed By: #### 5 7021-8 ####[facility] LABCLIA [id number] [place] [address] Neutrophils (Bld) [#/Vol] 4.67 10*3/uL Normal 1.45-7.50 [facility] Comment on above: Order Comment: Speci men Type: BLOOD SPECIMENOrdering Facility: [facility] Address: [address] [place] [address] Performed By: #### 5 7021-8 ####[facility] LABCLIA [id number] [place] [address] Neutrophils/100 WBC (Bld) 71.3 % Normal [facility] Comment on above: Order Comment: Speci men Type: BLOOD SPECIMENOrdering Facility: [facility] Address: [address] [place] [address] Performed By: #### 5 7021-8 ####[facility] LABIA [id number] [place] [address] Nucleated RBC (Bld) [#/Vol] 10*3/uL Normal <0.01 [facility] Comment on above: Order Comment: Speci men Type: BLOOD SPECIMENOrdering Facility: [facility] Address: [address] [place] [address] Performed By: #### 5 7021-8 ####[facility] LABCLIA [id number] [place] [address] Nucleated RBC/100 WBC (Bld) [Ratio] 0.0 /[address] [facility] Comment on above: Order Comment: Speci men Type: BLOOD SPECIMENOrdering Facility: [facility] Address: [address] [place] [address] Performed By: #### 5 7021-8 ####[facility] LABIA [id number] [place] [address] Platelet mean volume (Bld) [Entitic vol] 9.3 fL Normal 9.0-12.7 [facility] Comment on above: Order Comment: Speci men Type: BLOOD SPECIMENOrdering Facility: [facility] Address: [address] [place] [address] Performed By: #### 5 7021-8 ####[facility] LABCLIA [id number] [place] [address] Platelets (Bld) [#/Vol] 362 10*3/uL Normal 150-400 [facility] Comment on above: Order Comment: Speci men Type: BLOOD SPECIMENOrdering Facility: [facility] Address: [address] [place] [address] Performed By: #### 5 7021-8 ####[facility] LABIA [id number] [place] [address] RBC (Bld) [#/Vol] 3.28 10*6/uL Low 4.20-6.00 [facility] Comment on above: Order Comment: Speci men Type: BLOOD SPECIMENOrdering Facility: [facility] Address: [address] [place] [address] Performed By: #### 5 7021-8 ####[facility] LABIA [id number] [place] [address] WBC (Bld) [#/Vol] 6.54 10*3/uL Normal 3.70-11.00 [facility] Comment on above: Order Comment: Speci men Type: BLOOD SPECIMENOrdering Facility: [facility] Address: [address] [place] [address] Performed By: #### 5 7021-8 ####[facility] LABIA [id number] [place] [address] Basophils (Bld) [#/Vol] 0.03 10*3/uL <0.11 k/uL [facility] Basophils/100 WBC (Bld) 0.5 % [facility] Differential cell count method Nom (Bld) Auto [facility] Eosinophils (Bld) [#/Vol] <0.46 k/uL [facility] Eosinophils/100 WBC (Bld) 0.2 % [facility] Erythrocyte distribution width (RBC) [Ratio] 19.2 % High 11.5 - 15.0 % [facility] Hematocrit (Bld) [Volume fraction] 33.4 % Low 39.0 - 51.0 % [facility] Hemoglobin (Bld) [Mass/Vol] 10.5 g/dL Low 13.0 - 17.0 g/dL [facility] Immature granulocytes (Bld) [#/Vol] <0.10 k/uL [facility] Immature granulocytes/100 WBC (Bld) 0.3 % [facility] Lymphocytes (Bld) [#/Vol] 1.25 10*3/uL 1.00 - 4.00 k/uL [facility] Lymphocytes/100 WBC (Bld) 19.1 % [facility] MCH (RBC) [Entitic mass] 32.0 pg 26.0 - 34.0 pg [facility] MCHC (RBC) [Mass/Vol] 31.4 g/dL 30.5 - 36.0 g/dL [facility] MCV (RBC) [Entitic vol] 101.8 fL High 80.0 - 100.0 fL [facility] Monocytes (Bld) [#/Vol] 0.56 10*3/uL <0.87 k/uL [facility] Monocytes/100 WBC (Bld) 8.6 % [facility] Neutrophils (Bld) [#/Vol] 4.67 10*3/uL 1.45 - 7.50 k/uL [facility] Neutrophils/100 WBC (Bld) 71.3 % [facility] Nucleated RBC (Bld) [#/Vol] <0.01 k/uL [facility] Nucleated RBC/100 WBC (Bld) [Ratio] 0.0 /100 WBC [facility] Platelet mean volume (Bld) [Entitic vol] 9.3 fL 9.0 - 12.7 fL [facility] Platelets (Bld) [#/Vol] 362 10*3/uL 150 - 400 k/uL [facility] RBC (Bld) [#/Vol] 3.28 10*6/uL Low 4.20 - 6.0 0 m/uL [facility] WBC (Bld) [#/Vol] 6.54 10*3/uL 3.70 - 11. 00 k/uL [facility] CNOVSPon 12-14-[address] [facility] Cancer Ag19-9 SerPl-aCncon 0 12-14-2022 Cancer Ag 19-9 Qn 1463.0 [arb'U]/mL High <36.0 [facility] Comment on above: Order Comment: Speci men Type: BLOOD SPECIMENOrdering Facility: [facility] Address: [address] [address] Result Comment: [facility] er antigen 19-9 test is used as an aid in monitoring response to treatment or recurrence in patients with established pancreatic, hepatobiliary, or gastrointestinal malignancies. Clinical correlation is required.The CA 19-9 Antigen test was performed using the [employer] DXI paramagnetic particle chemiluminescent immunoassay method. Results obtained with different assay methods or kits cannot be used interchangeably. Performed By: #### 2 4108-3 ####[facility] LABCLIA [id number] [facility] [id number] [address] [place] Comprehensive metabolic 2000 panelon 12-14-2022 Albumin [Mass/Vol] 3.8 g/dL Low 3.9-4.9 [facility] Comment on above: Order Comment: Speci men Type: BLOOD SPECIMENOrdering Facility: [facility] Address: [address] [address] Performed By: #### 2 4323-8 ####[facility] LABCLIA [id number] [place] [address] ALP [Catalytic activity/Vol] 138 U/L High 38-113 [facility] Comment on above: Order Comment: Speci men Type: BLOOD SPECIMENOrdering Facility: [facility] Address: [address] [address] Performed By: #### 2 4323-8 ####[facility] LABCLIA [id number] [place] [address] ALT [Catalytic activity/Vol] 25 U/L Normal 10-54 [facility] Comment on above: Order Comment: Speci men Type: BLOOD SPECIMENOrdering Facility: [facility] Address: [address] [address] Performed By: #### 2 4323-8 ####[facility] LABCLIA [id number] [place] [address] Anion gap [Moles/Vol] 8 mmol/L Low 9-18 [facility] Comment on above: Order Comment: Speci men Type: BLOOD SPECIMENOrdering Facility: [facility] Address: [address] [place] [address] Performed By: #### 2 4323-8 ####[facility] LABCLIA [id number] [place] [address] AST [Catalytic activity/Vol] 22 U/L Normal 14-40 [facility] Comment on above: Order Comment: Speci men Type: BLOOD SPECIMENOrdering Facility: [facility] Address: [address] [place] [address] Performed By: #### 2 4323-8 ####[facility] LABCLIA [id number] [place] [address] Bilirubin [Mass/Vol] 0.9 mg/dL Normal 0.2-1.3 [facility] Comment on above: Order Comment: Speci men Type: BLOOD SPECIMENOrdering Facility: [facility] Address: [address] [place] [address] Performed By: #### 2 4323-8 ####[facility] LABCLIA [id number] [place] [address] Calcium [Mass/Vol] 10.5 mg/dL High 8.5-10.2 [facility] Comment on above: Order Comment: Speci men Type: BLOOD SPECIMENOrdering Facility: [facility] Address: [address] [place] [address] Performed By: #### 2 4323-8 ####[facility] LABCLIA [id number] [place] [address] Chloride [Moles/Vol] 104 mmol/L Normal 97-105 [facility] Comment on above: Order Comment: Speci men Type: BLOOD SPECIMENOrdering Facility: [facility] Address: [address] [place] [address] Performed By: #### 2 4323-8 ####[facility] LABCLIA [id number] [place] [address] CO2 [Moles/Vol] 24 mmol/L Normal 22-30 [facility] Comment on above: Order Comment: Speci men Type: BLOOD SPECIMENOrdering Facility: [facility] Address: [address] [place] [address] Performed By: #### 2 4323-8 ####[facility] LABCLIA [id number] [place] [address] Creatinine [Mass/Vol] 0.85 mg/dL Normal 0.73-1.22 [facility] Comment on above: Order Comment: Speci men Type: BLOOD SPECIMENOrdering Facility: [facility] Address: [address] [place] [address] Performed By: #### 2 4323-8 ####[facility] LABCLIA [id number] [place] [address] ESTIMATED GLOMERULAR FILTRATION RATE 93 mL/min/1.73m??? Normal >=60 [facility] Comment on above: Order Comment: Speci men Type: BLOOD SPECIMENOrdering Facility: [facility] Address: [address] [place] [address] Result Comment: Kathy mated Glomerular Filtration Rate (eGFR) is calculated using the 2020 CKD-EPI creatinine equation. This equation utilizes serum creatinine, sex, and age as parameters. The creatinine assay has traceable calibration to isotope dilution-mass spectrometry. Refer to KDIGO guidelines for clinical interpretation. In patients with unstable renal function, e.g. those with acute kidney injury, the eGFR may not accurately reflect actual GFR. Performed By: #### 2 4323-8 ####[facility] LABCLIA [id number] [place] [address] Glucose [Mass/Vol] 158 mg/dL High 74-99 [facility] Comment on above: Order Comment: Speci men Type: BLOOD SPECIMENOrdering Facility: [facility] Address: [address] [place] [address] Result Comment: The [place] [employer] (ADA) provides guidance for cutoff values for fasting glucose and random glucose. The ADA defines fasting as no caloric intake for at least 8 hours. Fasting plasma glucose results between 100 to 125 mg/dL indicate increased risk for diabetes (prediabetes).Fasting plasma glucose results greater than or equal to 126 mg/dL meet the criteria for diagnosis of diabetes. In the absence of unequivocal hyperglycemia, results should be confirmed by repeat testing. In a patient with classic symptoms of hyperglycemia or hyperglycemic crisis, random plasma glucose results greater than or equal to 200 mg/dL meet the criteria for diagnosis of diabetes.Reference: Standards of Medical Care in Diabetes 2016, [place] [employer]. Diabetes Care. 2016.39(Suppl 1). Performed By: #### 2 4323-8 ####[facility] LABCLIA [id number] [place] [address] Potassium [Moles/Vol] 4.1 mmol/L Normal 3.7-5.1 [facility] Comment on above: Order Comment: Speci men Type: BLOOD SPECIMENOrdering Facility: [facility] Address: [address] [place] [address] Performed By: #### 2 4323-8 ####[facility] LABCLIA [id number] [place] [address] Protein [Mass/Vol] 7.0 g/dL Normal 6.3-8.0 [facility] Comment on above: Order Comment: Speci men Type: BLOOD SPECIMENOrdering Facility: [facility] Address: [address] [place] [address] Performed By: #### 2 4323-8 ####[facility] LABCLIA [id number] [place] [address] Sodium [Moles/Vol] 136 mmol/L Normal 136-144 [facility] Comment on above: Order Comment: Speci men Type: BLOOD SPECIMENOrdering Facility: [facility] Address: [address] [address] Performed By: #### 2 4323-8 ####[facility] LABCLIA [id number] [place] [address] Urea nitrogen [Mass/Vol] 16 mg/dL Normal 9-24 [facility] Comment on above: Order Comment: Speci men Type: BLOOD SPECIMENOrdering Facility: [facility] Address: [address] [address] Performed By: #### 2 4323-8 ####[facility] LABCLIA [id number] [place] [address] Albumin [Mass/Vol] 3.8 g/dL Low 3.9 - 4.9 g/dL [facility] ALP [Catalytic activity/Vol] 138 U/L High 38 - 113 U/L [facility] ALT [Catalytic activity/Vol] 25 U/L 10 - 54 U/L [facility] Anion gap [Moles/Vol] 8 mmol/L Low 9 - 18 mmol/L [facility] AST [Catalytic activity/Vol] 22 U/L 14 - 40 U/L [facility] Bilirubin [Mass/Vol] 0.9 mg/dL 0.2 - 1.3 mg/dL [facility] Calcium [Mass/Vol] 10.5 mg/dL High 8.5 - 10. 2 mg/dL [facility] Chloride [Moles/Vol] 104 mmol/L 97 - 105 mmol/L [facility] CO2 [Moles/Vol] 24 mmol/L 22 - 30 mmol/L [facility] Creatinine [Mass/Vol] 0.85 mg/dL 0.73 - 1.22 mg/dL [facility] Estimated Glomerular Filtration Rate 93 mL/min/1.73m >=60 mL/min/1.73m [facility] Glucose [Mass/Vol] 158 mg/dL High 74 - 99 mg/dL [facility] Potassium [Moles/Vol] 4.1 mmol/L 3.7 - 5.1 mmol/L [facility] Protein [Mass/Vol] 7.0 g/dL 6.3 - 8.0 g/dL [facility] Sodium [Moles/Vol] 136 mmol/L 136 - 144 mmol/L [facility] Urea nitrogen [Mass/Vol] 16 mg/dL 9 - 24 mg/dL [facility] CBC W Auto Differential pane l (Bld)on 12-05-2022 Anisocytosis Ql (Bld) Present Normal [facility] Comment on above: Order Comment: Speci men Type: BLOOD SPECIMENOrdering Facility: [facility] Address: [address] [place] [address] Performed By: #### 5 7021-8 ####[facility] LABCLIA [id number] [address] LABCLIA [id number] [place] [address] [place] Basophils (Bld) [#/Vol] 0.00 10*3/uL Normal <0.11 [facility] Comment on above: Order Comment: Speci men Type: BLOOD SPECIMENOrdering Facility: [facility] Address: [address] [place] [address] Performed By: #### 5 7021-8 ####[facility] LABCLIA [id number] [address] LABCLIA [id number] [place] [address] [place] Basophils/100 WBC (Bld) 0.0 % Normal [facility] Comment on above: Order Comment: Speci men Type: BLOOD SPECIMENOrdering Facility: [facility] Address: [address] [place], [place] [address] Performed By: #### 5 7021-8 ####[facility] LABCLIA [id number] [address] LABCLIA [id number] [place] [address] [place] Differential cell count method Nom (Bld) Manual Normal [facility] Comment on above: Order Comment: Speci men Type: BLOOD SPECIMENOrdering Facility: [facility] Address: [address] [address] Performed By: #### 5 7021-8 ####[facility] LABCLIA [id number] [address] LABCLIA [id number] [place] [address] [place] Eosinophils (Bld) [#/Vol] 0.05 10*3/uL Normal <0.46 [facility] Comment on above: Order Comment: Speci men Type: BLOOD SPECIMENOrdering Facility: [facility] Address: [address] [place] [address] Performed By: #### 5 7021-8 ####[facility] LABCLIA [id number] [address] LABCLIA [id number] [place] [address] [place] Eosinophils/100 WBC (Bld) 0.9 % Normal [facility] Comment on above: Order Comment: Speci men Type: BLOOD SPECIMENOrdering Facility: [facility] Address: [address] [place] [address] Performed By: #### 5 7021-8 ####[facility] LABCLIA [id number] [address] LABCLIA [id number] [place] [address] [place] Erythrocyte distribution width (RBC) [Ratio] 15.9 % High 11.5-15.0 [facility] Comment on above: Order Comment: Speci men Type: BLOOD SPECIMENOrdering Facility: [facility] Address: [address] [place] [address] Performed By: #### 5 7021-8 ####[facility] LABCLIA [id number] [address] LABCLIA [id number] [place] [address] [place] Hematocrit (Bld) [Volume fraction] 22.1 % Low 39.0-51.0 [facility] Comment on above: Order Comment: Speci men Type: BLOOD SPECIMENOrdering Facility: [facility] Address: [address] [place] [address] Performed By: #### 5 7021-8 ####[facility] LABCLIA [id number] [address] LABCLIA [id number] [place] [address] [place] Hemoglobin (Bld) [Mass/Vol] 7.2 g/dL Low 13.0-17.0 [facility] Comment on above: Order Comment: Speci men Type: BLOOD SPECIMENOrdering Facility: [facility] Address: [address] [place] [address] Performed By: #### 5 7021-8 ####[facility] LABCLIA [id number] [address] LABCLIA [id number] [place] [address] [place] Lymphocytes (Bld) [#/Vol] 0.67 10*3/uL Low 1.00-4.00 [facility] Comment on above: Order Comment: Speci men Type: BLOOD SPECIMENOrdering Facility: [facility] Address: [address] [place] [address] Performed By: #### 5 7021-8 ####[facility] LABCLIA [id number] [address] LABCLIA [id number] [place] [address] [place] Lymphocytes/100 WBC (Bld) 13.2 % Normal [facility] Comment on above: Order Comment: Speci men Type: BLOOD SPECIMENOrdering Facility: [facility] Address: [address] [address] Performed By: #### 5 7021-8 ####[facility] LABCLIA [id number] [address] LABCLIA [id number] [place] [address] [place] MCH (RBC) [Entitic mass] 31.9 pg Normal 26.0-34.0 [facility] Comment on above: Order Comment: Speci men Type: BLOOD SPECIMENOrdering Facility: [facility] Address: [address] [address] Performed By: #### 5 7021-8 ####[facility] LABCLIA [id number] [address] LABCLIA [id number] [place] [address] [place] MCHC (RBC) [Mass/Vol] 32.6 g/dL Normal 30.5-36.0 [facility] Comment on above: Order Comment: Speci men Type: BLOOD SPECIMENOrdering Facility: [facility] Address: [address] [place] [address] Performed By: #### 5 7021-8 ####[facility] LABCLIA [id number] [address] LABCLIA [id number] [place] [address] [place] MCV (RBC) [Entitic vol] 97.8 fL Normal 80.0-100.0 [facility] Comment on above: Order Comment: Speci men Type: BLOOD SPECIMENOrdering Facility: [facility] Address: [address] [place] [address] Performed By: #### 5 7021-8 ####[facility] LABCLIA [id number] [address] LABCLIA [id number] [place] [address] [place] Monocytes (Bld) [#/Vol] 0.00 10*3/uL Normal <0.87 [facility] Comment on above: Order Comment: Speci men Type: BLOOD SPECIMENOrdering Facility: [facility] Address: [address] [place] [address] Performed By: #### 5 7021-8 ####[facility] LABCLIA [id number] [address] LABCLIA [id number] [place] [address] [place] Monocytes/100 WBC (Bld) 0.0 % Normal [facility] Comment on above: Order Comment: Speci men Type: BLOOD SPECIMENOrdering Facility: [facility] Address: [address] [place] [address] Performed By: #### 5 7021-8 ####[facility] LABCLIA [id number] [address] LABCLIA [id number] [place] [address] [place] Neutrophils (Bld) [#/Vol] 4.38 10*3/uL Normal 1.45-7.50 [facility] Comment on above: Order Comment: Speci men Type: BLOOD SPECIMENOrdering Facility: [facility] Address: [address] [place] [address] Performed By: #### 5 7021-8 ####[facility] LABCLIA [id number] [address] LABCLIA [id number] [place] [address] [place] Neutrophils/100 WBC (Bld) 86.0 % Normal [facility] Comment on above: Order Comment: Speci men Type: BLOOD SPECIMENOrdering Facility: [facility] Address: [address] [id number] Performed By: #### 5 7021-8 ####[facility] LABCLIA [id number] [address] LABCLIA [id number] [place] [address] [place] Nucleated RBC (Bld) [#/Vol] 10*3/uL Normal <0.01 [facility] Comment on above: Order Comment: Speci men Type: BLOOD SPECIMENOrdering Facility: [facility] Address: [address] [place] [address] Performed By: #### 5 7021-8 ####[facility] LABCLIA [id number] [address] LABCLIA [id number] [place] [address] [place] Nucleated RBC/100 WBC (Bld) [Ratio] 0.0 /[address] [facility] Comment on above: Order Comment: Speci men Type: BLOOD SPECIMENOrdering Facility: [facility] Address: [address] [place] [address] Performed By: #### 5 7021-8 ####[facility] LABCLIA [id number] [address] LABCLIA [id number] [place] [address] [place] Ovalocytes LM Ql (Bld) Few Normal [facility] Comment on above: Order Comment: Speci men Type: BLOOD SPECIMENOrdering Facility: [facility] Address: [address] [place] [address] Performed By: #### 5 7021-8 ####[facility] LABCLIA [id number] [address] LABCLIA [id number] [place] [address] [place] Platelet mean volume (Bld) [Entitic vol] 9.3 fL Normal 9.0-12.7 [facility] Comment on above: Order Comment: Speci men Type: BLOOD SPECIMENOrdering Facility: [facility] Address: [address] [place] [address] Performed By: #### 5 7021-8 ####[facility] LABCLIA [id number] [address] LABCLIA [id number] [place] [address] [place] Platelets (Bld) [#/Vol] 190 10*3/uL Normal 150-400 [facility] Comment on above: Order Comment: Speci men Type: BLOOD SPECIMENOrdering Facility: [facility] Address: [address] [place] [address] Performed By: #### 5 7021-8 ####[facility] LABCLIA [id number] [address] LABCLIA [id number] [place] [address] [place] Platelets Estimate (Bld) [#/Vol] Adequate Normal [facility] Comment on above: Order Comment: Speci men Type: BLOOD SPECIMENOrdering Facility: [facility] Address: [address] [place], [place] [address] Performed By: #### 5 7021-8 ####[facility] LABCLIA [id number] [address] LABCLIA [id number] [place] [address] [place] Polychromasia LM Ql (Bld) Slight Normal [facility] Comment on above: Order Comment: Speci men Type: BLOOD SPECIMENOrdering Facility: [facility] Address: [address] [place], [place] [address] Performed By: #### 5 7021-8 ####[facility] LABCLIA [id number] [address] [id number] LABCLIA [id number] [place] [address] [place] RBC (Bld) [#/Vol] 2.26 10*6/uL Low 4.20-6.00 [facility] Comment on above: Order Comment: Speci men Type: BLOOD SPECIMENOrdering Facility: [facility] Address: [address] [place] [address] Performed By: #### 5 7021-8 ####[facility] LABCLIA [id number] [address] LABCLIA [id number] [place] [address] [place] RBC FRAGMENTS Few Abnormal None Seen [facility] Comment on above: Order Comment: Speci men Type: BLOOD SPECIMENOrdering Facility: [facility] Address: [address] [place] [address] Performed By: #### 5 7021-8 ####[facility] LABCLIA [id number] [address] LABCLIA [id number] [place] [address] [place] RED CELL MORPH Reviewed: see result s of individual morphologies Normal [facility] Comment on above: Order Comment: Speci men Type: BLOOD SPECIMENOrdering Facility: [facility] Address: [address] [place] [address] Performed By: #### 5 7021-8 ####[facility] LABCLIA [id number] [address] LABCLIA [id number] [place] [address] [place] WBC (Bld) [#/Vol] 5.09 10*3/uL Normal 3.70-11.00 [facility] Comment on above: Order Comment: Speci men Type: BLOOD SPECIMENOrdering Facility: [facility] Address: [address] [address] Performed By: #### 5 7021-8 ####[facility] LABCLIA [id number] [place], [place] [address]XDRTPEZGMC[facility] LABCLIA [id number] [facility] [id number] [place], [place] [id number] [place] CNOVSPon 12-05-[address] [facility] CNPNon 12-05-[address] [facility] CBC W Auto Differential pane l (Bld)on 11-30-2022 Basophils (Bld) [#/Vol] 0.03 10*3/uL Normal <0.11 [facility] Comment on above: Order Comment: Speci men Type: BLOOD SPECIMENOrdering Facility: [facility] Address: [address] [place] [address] Performed By: #### 5 7021-8 ####[facility] LABCLIA [id number] [place] [address] Basophils/100 WBC (Bld) 0.5 % Normal [facility] Comment on above: Order Comment: Speci men Type: BLOOD SPECIMENOrdering Facility: [facility] Address: [address] [place] [address] Performed By: #### 5 7021-8 ####[facility] LABCLIA [id number] [place] [address] Differential cell count method Nom (Bld) Auto Normal [facility] Comment on above: Order Comment: Speci men Type: BLOOD SPECIMENOrdering Facility: [facility] Address: [address] [place] [address] Performed By: #### 5 7021-8 ####[facility] LABCLIA [id number] [place] [address] Eosinophils (Bld) [#/Vol] 10*3/uL Normal <0.46 [facility] Comment on above: Order Comment: Speci men Type: BLOOD SPECIMENOrdering Facility: [facility] Address: [address] [place] [address] Performed By: #### 5 7021-8 ####[facility] LABCLIA [id number] [place] [address] Eosinophils/100 WBC (Bld) 0.3 % Normal [facility] Comment on above: Order Comment: Speci men Type: BLOOD SPECIMENOrdering Facility: [facility] Address: [address] [place] [address] Performed By: #### 5 7021-8 ####[facility] LABCLIA [id number] [place] [address] Erythrocyte distribution width (RBC) [Ratio] 14.1 % Normal 11.5-15.0 [facility] Comment on above: Order Comment: Speci men Type: BLOOD SPECIMENOrdering Facility: [facility] Address: [address] [place] [address] Performed By: #### 5 7021-8 ####[facility] LABCLIA [id number] [place] [address] Hematocrit (Bld) [Volume fraction] 25.2 % Low 39.0-51.0 [facility] Comment on above: Order Comment: Speci men Type: BLOOD SPECIMENOrdering Facility: [facility] Address: [address] [place] [address] Performed By: #### 5 7021-8 ####[facility] LABCLIA [id number] [place] [address] Hemoglobin (Bld) [Mass/Vol] 8.2 g/dL Low 13.0-17.0 [facility] Comment on above: Order Comment: Speci men Type: BLOOD SPECIMENOrdering Facility: [facility] Address: [address] [place] [address] Performed By: #### 5 7021-8 ####[facility] LABCLIA [id number] [place] [address] Immature granulocytes (Bld) [#/Vol] 0.07 10*3/uL Normal <0.10 [facility] Comment on above: Order Comment: Speci men Type: BLOOD SPECIMENOrdering Facility: [facility] Address: [address] [place] [address] Performed By: #### 5 7021-8 ####[facility] LABCLIA [id number] [place] [address] Immature granulocytes/100 WBC (Bld) 1.2 % Normal [facility] Comment on above: Order Comment: Speci men Type: BLOOD SPECIMENOrdering Facility: [facility] Address: [address] [place] [address] Performed By: #### 5 7021-8 ####[facility] LABCLIA [id number] [place] [address] Lymphocytes (Bld) [#/Vol] 1.86 10*3/uL Normal 1.00-4.00 [facility] Comment on above: Order Comment: Speci men Type: BLOOD SPECIMENOrdering Facility: [facility] Address: [address] [place] [address] Performed By: #### 5 7021-8 ####[facility] LABCLIA [id number] [place] [address] Lymphocytes/100 WBC (Bld) 30.9 % Normal [facility] Comment on above: Order Comment: Speci men Type: BLOOD SPECIMENOrdering Facility: [facility] Address: [address] [place] [address] Performed By: #### 5 7021-8 ####[facility] LABCLIA [id number] [place] [address] MCH (RBC) [Entitic mass] 31.4 pg Normal 26.0-34.0 [facility] Comment on above: Order Comment: Speci men Type: BLOOD SPECIMENOrdering Facility: [facility] Address: [address] [place] [address] Performed By: #### 5 7021-8 ####[facility] LABCLIA [id number] [place] [address] MCHC (RBC) [Mass/Vol] 32.5 g/dL Normal 30.5-36.0 [facility] Comment on above: Order Comment: Speci men Type: BLOOD SPECIMENOrdering Facility: [facility] Address: [address] [place] [address] Performed By: #### 5 7021-8 ####[facility] LABCLIA [id number] [place] [address] MCV (RBC) [Entitic vol] 96.6 fL Normal 80.0-100.0 [facility] Comment on above: Order Comment: Speci men Type: BLOOD SPECIMENOrdering Facility: [facility] Address: [address] [place] [address] Performed By: #### 5 7021-8 ####[facility] LABCLIA [id number] [place] [address] Monocytes (Bld) [#/Vol] 0.26 10*3/uL Normal <0.87 [facility] Comment on above: Order Comment: Speci men Type: BLOOD SPECIMENOrdering Facility: [facility] Address: [address] [place] [address] Performed By: #### 5 7021-8 ####[facility] LABCLIA [id number] [place] [address] Monocytes/100 WBC (Bld) 4.3 % Normal [facility] Comment on above: Order Comment: Speci men Type: BLOOD SPECIMENOrdering Facility: [facility] Address: [address] [place] [address] Performed By: #### 5 7021-8 ####[facility] LABCLIA [id number] [place] [address] Neutrophils (Bld) [#/Vol] 3.78 10*3/uL Normal 1.45-7.50 [facility] Comment on above: Order Comment: Speci men Type: BLOOD SPECIMENOrdering Facility: [facility] Address: [address] [place] [address] Performed By: #### 5 7021-8 ####[facility] LABCLIA [id number] [place] [address] Neutrophils/100 WBC (Bld) 62.8 % Normal [facility] Comment on above: Order Comment: Speci men Type: BLOOD SPECIMENOrdering Facility: [facility] Address: [address] [place] [address] Performed By: #### 5 7021-8 ####[facility] LABCLIA [id number] [place] [address] Nucleated RBC (Bld) [#/Vol] 10*3/uL Normal <0.01 [facility] Comment on above: Order Comment: Speci men Type: BLOOD SPECIMENOrdering Facility: [facility] Address: [address] [place] [address] Performed By: #### 5 7021-8 ####[facility] LABCLIA [id number] [place] [address] Nucleated RBC/100 WBC (Bld) [Ratio] 0.0 /[address] [facility] Comment on above: Order Comment: Speci men Type: BLOOD SPECIMENOrdering Facility: [facility] Address: [address] [place] [address] Performed By: #### 5 7021-8 ####[facility] LABCLIA [id number] [place] [address] Platelet mean volume (Bld) [Entitic vol] 10.0 fL Normal 9.0-12.7 [facility] Comment on above: Order Comment: Speci men Type: BLOOD SPECIMENOrdering Facility: [facility] Address: [address] [place] [address] Performed By: #### 5 7021-8 ####[facility] LABCLIA [id number] [place] [address] Platelets (Bld) [#/Vol] 217 10*3/uL Normal 150-400 [facility] Comment on above: Order Comment: Speci men Type: BLOOD SPECIMENOrdering Facility: [facility] Address: [address] [place] [address] Performed By: #### 5 7021-8 ####[facility] LABIA [id number] [place] [address] RBC (Bld) [#/Vol] 2.61 10*6/uL Low 4.20-6.00 [facility] Comment on above: Order Comment: Speci men Type: BLOOD SPECIMENOrdering Facility: [facility] Address: [address] [place] [address] Performed By: #### 5 7021-8 ####[facility] LABIA [id number] [place] [address] WBC (Bld) [#/Vol] 6.02 10*3/uL Normal 3.70-11.00 [facility] Comment on above: Order Comment: Speci men Type: BLOOD SPECIMENOrdering Facility: [facility] Address: [address] [place] [address] Performed By: #### 5 7021-8 ####[facility] LABIA [id number] [place] [address] Basophils (Bld) [#/Vol] 0.03 10*3/uL <0.11 k/uL [facility] Basophils/100 WBC (Bld) 0.5 % [facility] Differential cell count method Nom (Bld) Auto [facility] Eosinophils (Bld) [#/Vol] <0.46 k/uL [facility] Eosinophils/100 WBC (Bld) 0.3 % [facility] Erythrocyte distribution width (RBC) [Ratio] 14.1 % 11.5 - 15.0 % [facility] Hematocrit (Bld) [Volume fraction] 25.2 % Low 39.0 - 51.0 % [facility] Hemoglobin (Bld) [Mass/Vol] 8.2 g/dL Low 13.0 - 17.0 g/dL [facility] Immature granulocytes (Bld) [#/Vol] 0.07 10*3/uL <0.10 k/uL [facility] Immature granulocytes/100 WBC (Bld) 1.2 % [facility] Lymphocytes (Bld) [#/Vol] 1.86 10*3/uL 1.00 - 4.00 k/uL [facility] Lymphocytes/100 WBC (Bld) 30.9 % [facility] MCH (RBC) [Entitic mass] 31.4 pg 26.0 - 34.0 pg [facility] MCHC (RBC) [Mass/Vol] 32.5 g/dL 30.5 - 36.0 g/dL [facility] MCV (RBC) [Entitic vol] 96.6 fL 80.0 - 100.0 fL [facility] Monocytes (Bld) [#/Vol] 0.26 10*3/uL <0.87 k/uL [facility] Monocytes/100 WBC (Bld) 4.3 % [facility] Neutrophils (Bld) [#/Vol] 3.78 10*3/uL 1.45 - 7.50 k/uL [facility] Neutrophils/100 WBC (Bld) 62.8 % [facility] Nucleated RBC (Bld) [#/Vol] <0.01 k/uL [facility] Nucleated RBC/100 WBC (Bld) [Ratio] 0.0 /100 WBC [facility] Platelet mean volume (Bld) [Entitic vol] 10.0 fL 9.0 - 12.7 fL [facility] Platelets (Bld) [#/Vol] 217 10*3/uL 150 - 400 k/uL [facility] RBC (Bld) [#/Vol] 2.61 10*6/uL Low 4.20 - 6.0 0 m/uL [facility] WBC (Bld) [#/Vol] 6.02 10*3/uL 3.70 - 11. 00 k/uL [facility] CNOVSPon 11-30-2022 CNOVSP Normal [facility] 2000 panelon 11-30-2022 Albumin [Mass/Vol] 3.3 g/dL Low 3.9-4.9 [facility] Comment on above: Order Comment: Speci men Type: BLOOD SPECIMENOrdering Facility: [facility] Address: [address] [place] [address] Performed By: #### 2 4323-8 ####[facility] LABCLIA [id number] [place] [address] ALP [Catalytic activity/Vol] 121 U/L High 38-113 [facility] Comment on above: Order Comment: Speci men Type: BLOOD SPECIMENOrdering Facility: [facility] Address: [address] [address] Performed By: #### 2 4323-8 ####[facility] LABCLIA [id number] [place] [address] ALT [Catalytic activity/Vol] 17 U/L Normal 10-54 [facility] Comment on above: Order Comment: Speci men Type: BLOOD SPECIMENOrdering Facility: [facility] Address: [address] [place] [address] Performed By: #### 2 4323-8 ####[facility] LABCLIA [id number] [place] [address] Anion gap [Moles/Vol] 6 mmol/L Low 9-18 [facility] Comment on above: Order Comment: Speci men Type: BLOOD SPECIMENOrdering Facility: [facility] Address: [address] [address] Performed By: #### 2 4323-8 ####[facility] LABCLIA [id number] [place] [address] AST [Catalytic activity/Vol] 24 U/L Normal 14-40 [facility] Comment on above: Order Comment: Speci men Type: BLOOD SPECIMENOrdering Facility: [facility] Address: [address] [place] [address] Performed By: #### 2 4323-8 ####[facility] LABCLIA [id number] [place] [address] Bilirubin [Mass/Vol] 1.0 mg/dL Normal 0.2-1.3 [facility] Comment on above: Order Comment: Speci men Type: BLOOD SPECIMENOrdering Facility: [facility] Address: [address] [place] [address] Performed By: #### 2 4323-8 ####[facility] LABCLIA [id number] [place] [address] Calcium [Mass/Vol] 10.6 mg/dL High 8.5-10.2 [facility] Comment on above: Order Comment: Speci men Type: BLOOD SPECIMENOrdering Facility: [facility] Address: [address] [place] [address] Performed By: #### 2 4323-8 ####[facility] LABCLIA [id number] [place] [address] Chloride [Moles/Vol] 103 mmol/L Normal 97-105 [facility] Comment on above: Order Comment: Speci men Type: BLOOD SPECIMENOrdering Facility: [facility] Address: [address] [place] [address] Performed By: #### 2 4323-8 ####[facility] LABCLIA [id number] [place] [address] CO2 [Moles/Vol] 25 mmol/L Normal 22-30 [facility] Comment on above: Order Comment: Speci men Type: BLOOD SPECIMENOrdering Facility: [facility] Address: [address] [place] [address] Performed By: #### 2 4323-8 ####[facility] LABCLIA [id number] [place] [address] Creatinine [Mass/Vol] 0.80 mg/dL Normal 0.73-1.22 [facility] Comment on above: Order Comment: Speci men Type: BLOOD SPECIMENOrdering Facility: [facility] Address: [address] [place] [address] Performed By: #### 2 4323-8 ####[facility] LABCLIA [id number] [place] [address] ESTIMATED GLOMERULAR FILTRATION RATE 95 mL/min/1.73m??? Normal >=60 [facility] Comment on above: Order Comment: Noemí luis eduardo Type: BLOOD SPECIMENOrdering Facility: [facility] Address: [address] [place] [address] Result Comment: Kathy mated Glomerular Filtration Rate (eGFR) is calculated using the 2020 CKD-EPI creatinine equation. This equation utilizes serum creatinine, sex, and age as parameters. The creatinine assay has traceable calibration to isotope dilution-mass spectrometry. Refer to KDIGO guidelines for clinical interpretation. In patients with unstable renal function, e.g. those with acute kidney injury, the eGFR may not accurately reflect actual GFR. Performed By: #### 2 4323-8 ####[facility] LABCLIA [id number] [place] [address] Glucose [Mass/Vol] 273 mg/dL High 74-99 [facility] Comment on above: Order Comment: Rajanimack hoff Type: BLOOD SPECIMENOrdering Facility: [facility] Address: [address] [place] [address] Result Comment: The [place] [employer] (ADA) provides guidance for cutoff values for fasting glucose and random glucose. The ADA defines fasting as no caloric intake for at least 8 hours. Fasting plasma glucose results between 100 to 125 mg/dL indicate increased risk for diabetes (prediabetes).Fasting plasma glucose results greater than or equal to 126 mg/dL meet the criteria for diagnosis of diabetes. In the absence of unequivocal hyperglycemia, results should be confirmed by repeat testing. In a patient with classic symptoms of hyperglycemia or hyperglycemic crisis, random plasma glucose results greater than or equal to 200 mg/dL meet the criteria for diagnosis of diabetes.Reference: Standards of Medical Care in Diabetes 2016, [place] [employer]. Diabetes Care. 2016.39(Suppl 1). Performed By: #### 2 4323-8 ####[facility] LABCLIA [id number] [place] [address] Potassium [Moles/Vol] 4.0 mmol/L Normal 3.7-5.1 [facility] Comment on above: Order Comment: Speci men Type: BLOOD SPECIMENOrdering Facility: [facility] Address: [address] [place] [address] Performed By: #### 2 4323-8 ####[facility] LABCLIA [id number] [place] [address] Protein [Mass/Vol] 6.8 g/dL Normal 6.3-8.0 [facility] Comment on above: Order Comment: Speci men Type: BLOOD SPECIMENOrdering Facility: [facility] Address: [address] [place] [address] Performed By: #### 2 4323-8 ####[facility] LABCLIA [id number] [place] [address] Sodium [Moles/Vol] 134 mmol/L Low 136-144 [facility] Comment on above: Order Comment: Speci men Type: BLOOD SPECIMENOrdering Facility: [facility] Address: [address] [place] [address] Performed By: #### 2 4323-8 ####[facility] LABCLIA [id number] [place] [address] Urea nitrogen [Mass/Vol] 15 mg/dL Normal 9-24 [facility] Comment on above: Order Comment: Speci men Type: BLOOD SPECIMENOrdering Facility: [facility] Address: [address] [place] [address] Performed By: #### 2 4323-8 ####[facility] LABIA [id number] [place] [address] Albumin [Mass/Vol] 3.3 g/dL Low 3.9 - 4.9 g/dL [facility] ALP [Catalytic activity/Vol] 121 U/L High 38 - 113 U/L [facility] ALT [Catalytic activity/Vol] 17 U/L 10 - 54 U/L [facility] Anion gap [Moles/Vol] 6 mmol/L Low 9 - 18 mmol/L [facility] AST [Catalytic activity/Vol] 24 U/L 14 - 40 U/L [facility] Bilirubin [Mass/Vol] 1.0 mg/dL 0.2 - 1.3 mg/dL [facility] Calcium [Mass/Vol] 10.6 mg/dL High 8.5 - 10. 2 mg/dL [facility] Chloride [Moles/Vol] 103 mmol/L 97 - 105 mmol/L [facility] CO2 [Moles/Vol] 25 mmol/L 22 - 30 mmol/L [facility] Creatinine [Mass/Vol] 0.80 mg/dL 0.73 - 1.22 mg/dL [facility] Estimated Glomerular Filtration Rate 95 mL/min/1.73m >=60 mL/min/1.73m [facility] Glucose [Mass/Vol] 273 mg/dL High 74 - 99 mg/dL [facility] Potassium [Moles/Vol] 4.0 mmol/L 3.7 - 5.1 mmol/L [facility] Protein [Mass/Vol] 6.8 g/dL 6.3 - 8.0 g/dL [facility] Sodium [Moles/Vol] 134 mmol/L Low 136 - 144 mmol/L [facility] Urea nitrogen [Mass/Vol] 15 mg/dL 9 - 24 mg/dL [facility] CBC W Auto Differential pane l (Bld)on 11-23-2022 Basophils (Bld) [#/Vol] 0.03 10*3/uL Normal <0.11 [facility] Comment on above: Order Comment: Speci men Type: BLOOD SPECIMENOrdering Facility: [facility] Address: [address] [place] [address] Performed By: #### 5 7021-8 ####[facility] LABCLIA [id number] [place] [address] Basophils/100 WBC (Bld) 0.3 % Normal [facility] Comment on above: Order Comment: Speci men Type: BLOOD SPECIMENOrdering Facility: [facility] Address: [address] [address] Performed By: #### 5 7021-8 ####[facility] LABCLIA [id number] [place] [address] Differential cell count method Nom (Bld) Auto Normal [facility] Comment on above: Order Comment: Speci men Type: BLOOD SPECIMENOrdering Facility: [facility] Address: [address] [place] [address] Performed By: #### 5 7021-8 ####[facility] LABCLIA [id number] [place] [address] Eosinophils (Bld) [#/Vol] 0.05 10*3/uL Normal <0.46 [facility] Comment on above: Order Comment: Speci men Type: BLOOD SPECIMENOrdering Facility: [facility] Address: [address] [address] Performed By: #### 5 7021-8 ####[facility] LABCLIA [id number] [place] [address] Eosinophils/100 WBC (Bld) 0.5 % Normal [facility] Comment on above: Order Comment: Speci men Type: BLOOD SPECIMENOrdering Facility: [facility] Address: [address] [address] Performed By: #### 5 7021-8 ####[facility] LABCLIA [id number] [place] [address] Erythrocyte distribution width (RBC) [Ratio] 13.9 % Normal 11.5-15.0 [facility] Comment on above: Order Comment: Speci men Type: BLOOD SPECIMENOrdering Facility: [facility] Address: [address] [place] [address] Performed By: #### 5 7021-8 ####[facility] LABCLIA [id number] [place] [address] Hematocrit (Bld) [Volume fraction] 32.6 % Low 39.0-51.0 [facility] Comment on above: Order Comment: Speci men Type: BLOOD SPECIMENOrdering Facility: [facility] Address: [address] [place] [address] Performed By: #### 5 7021-8 ####[facility] LABIA [id number] [place] [address] Hemoglobin (Bld) [Mass/Vol] 10.7 g/dL Low 13.0-17.0 [facility] Comment on above: Order Comment: Speci men Type: BLOOD SPECIMENOrdering Facility: [facility] Address: [address] [place] [address] Performed By: #### 5 7021-8 ####[facility] LABIA [id number] [place] [address] Immature granulocytes (Bld) [#/Vol] 0.04 10*3/uL Normal <0.10 [facility] Comment on above: Order Comment: Speci men Type: BLOOD SPECIMENOrdering Facility: [facility] Address: [address] [place] [address] Performed By: #### 5 7021-8 ####[facility] LABIA [id number] [place] [address] Immature granulocytes/100 WBC (Bld) 0.4 % Normal [facility] Comment on above: Order Comment: Speci men Type: BLOOD SPECIMENOrdering Facility: [facility] Address: [address] [place] [address] Performed By: #### 5 7021-8 ####[facility] LABIA [id number] [place] [address] Lymphocytes (Bld) [#/Vol] 1.57 10*3/uL Normal 1.00-4.00 [facility] Comment on above: Order Comment: Speci men Type: BLOOD SPECIMENOrdering Facility: [facility] Address: [address] [address] Performed By: #### 5 7021-8 ####[facility] LABCLIA [id number] [place] [address] Lymphocytes/100 WBC (Bld) 14.5 % Normal [facility] Comment on above: Order Comment: Speci men Type: BLOOD SPECIMENOrdering Facility: [facility] Address: [address] [place] [address] Performed By: #### 5 7021-8 ####[facility] LABCLIA [id number] [place] [address] MCH (RBC) [Entitic mass] 31.7 pg Normal 26.0-34.0 [facility] Comment on above: Order Comment: Speci men Type: BLOOD SPECIMENOrdering Facility: [facility] Address: [address] [place] [address] Performed By: #### 5 7021-8 ####[facility] LABIA [id number] [place] [address] MCHC (RBC) [Mass/Vol] 32.8 g/dL Normal 30.5-36.0 [facility] Comment on above: Order Comment: Speci men Type: BLOOD SPECIMENOrdering Facility: [facility] Address: [address] [place] [address] Performed By: #### 5 7021-8 ####[facility] LABCLIA [id number] [place] [address] MCV (RBC) [Entitic vol] 96.4 fL Normal 80.0-100.0 [facility] Comment on above: Order Comment: Speci men Type: BLOOD SPECIMENOrdering Facility: [facility] Address: [address] [place] [address] Performed By: #### 5 7021-8 ####[facility] LABIA [id number] [place] [address] Monocytes (Bld) [#/Vol] 0.77 10*3/uL Normal <0.87 [facility] Comment on above: Order Comment: Speci men Type: BLOOD SPECIMENOrdering Facility: [facility] Address: [address] [address] Performed By: #### 5 7021-8 ####[facility] LABCLIA [id number] [place] [address] Monocytes/100 WBC (Bld) 7.1 % Normal [facility] Comment on above: Order Comment: Speci men Type: BLOOD SPECIMENOrdering Facility: [facility] Address: [address] [address] Performed By: #### 5 7021-8 ####[facility] LABCLIA [id number] [place] [address] Neutrophils (Bld) [#/Vol] 8.35 10*3/uL High 1.45-7.50 [facility] Comment on above: Order Comment: Speci men Type: BLOOD SPECIMENOrdering Facility: [facility] Address: [address] [address] Performed By: #### 5 7021-8 ####[facility] LABIA [id number] [place] [address] Neutrophils/100 WBC (Bld) 77.2 % Normal [facility] Comment on above: Order Comment: Speci men Type: BLOOD SPECIMENOrdering Facility: [facility] Address: [address] [address] Performed By: #### 5 7021-8 ####[facility] LABCLIA [id number] [place] [address] Nucleated RBC (Bld) [#/Vol] 10*3/uL Normal <0.01 [facility] Comment on above: Order Comment: Speci men Type: BLOOD SPECIMENOrdering Facility: [facility] Address: [address] [address] Performed By: #### 5 7021-8 ####[facility] LABCLIA [id number] [place] [address] Nucleated RBC/100 WBC (Bld) [Ratio] 0.0 /[address] [facility] Comment on above: Order Comment: Speci men Type: BLOOD SPECIMENOrdering Facility: [facility] Address: [address] [place] [address] Performed By: #### 5 7021-8 ####[facility] LABCLIA [id number] [place] [address] Platelet mean volume (Bld) [Entitic vol] 10.9 fL Normal 9.0-12.7 [facility] Comment on above: Order Comment: Speci men Type: BLOOD SPECIMENOrdering Facility: [facility] Address: [address] [place] [address] Performed By: #### 5 7021-8 ####[facility] LABCLIA [id number] [place] [address] Platelets (Bld) [#/Vol] 269 10*3/uL Normal 150-400 [facility] Comment on above: Order Comment: Speci men Type: BLOOD SPECIMENOrdering Facility: [facility] Address: [address] [place] [address] Performed By: #### 5 7021-8 ####[facility] LABCLIA [id number] [place] [address] RBC (Bld) [#/Vol] 3.38 10*6/uL Low 4.20-6.00 [facility] Comment on above: Order Comment: Speci men Type: BLOOD SPECIMENOrdering Facility: [facility] Address: [address] [place] [address] Performed By: #### 5 7021-8 ####[facility] LABCLIA [id number] [place] [address] WBC (Bld) [#/Vol] 10.81 10*3/uL Normal 3.70-11.00 [facility] Comment on above: Order Comment: Speci men Type: BLOOD SPECIMENOrdering Facility: [facility] Address: [place] [address] Performed By: #### 5 7021-8 ####[facility] LABCLIA [id number] [place] [address] Basophils (Bld) [#/Vol] 0.03 10*3/uL <0.11 k/uL [facility] Basophils/100 WBC (Bld) 0.3 % [facility] Differential cell count method Nom (Bld) Auto [facility] Eosinophils (Bld) [#/Vol] 0.05 10*3/uL <0.46 k/uL [facility] Eosinophils/100 WBC (Bld) 0.5 % [facility] Erythrocyte distribution width (RBC) [Ratio] 13.9 % 11.5 - 15.0 % [facility] Hematocrit (Bld) [Volume fraction] 32.6 % Low 39.0 - 51.0 % [facility] Hemoglobin (Bld) [Mass/Vol] 10.7 g/dL Low 13.0 - 17.0 g/dL [facility] Immature granulocytes (Bld) [#/Vol] 0.04 10*3/uL <0.10 k/uL [facility] Immature granulocytes/100 WBC (Bld) 0.4 % [facility] Lymphocytes (Bld) [#/Vol] 1.57 10*3/uL 1.00 - 4.00 k/uL [facility] Lymphocytes/100 WBC (Bld) 14.5 % [facility] MCH (RBC) [Entitic mass] 31.7 pg 26.0 - 34.0 pg [facility] MCHC (RBC) [Mass/Vol] 32.8 g/dL 30.5 - 36.0 g/dL [facility] MCV (RBC) [Entitic vol] 96.4 fL 80.0 - 100.0 fL [facility] Monocytes (Bld) [#/Vol] 0.77 10*3/uL <0.87 k/uL [facility] Monocytes/100 WBC (Bld) 7.1 % [facility] Neutrophils (Bld) [#/Vol] 8.35 10*3/uL High 1.45 - 7.50 k/uL [facility] Neutrophils/100 WBC (Bld) 77.2 % [facility] Nucleated RBC (Bld) [#/Vol] <0.01 k/uL [facility] Nucleated RBC/100 WBC (Bld) [Ratio] 0.0 /100 WBC [facility] Platelet mean volume (Bld) [Entitic vol] 10.9 fL 9.0 - 12.7 fL [facility] Platelets (Bld) [#/Vol] 269 10*3/uL 150 - 400 k/uL [facility] RBC (Bld) [#/Vol] 3.38 10*6/uL Low 4.20 - 6.0 0 m/uL [facility] WBC (Bld) [#/Vol] 10.81 10*3/uL 3.70 - 11 .00 k/uL [facility] CNOVSPon 11-23-[address] [facility] CNPNon 11-23-[address] [facility] Comprehensive metabolic 2000 panelon 11-23-2022 Albumin [Mass/Vol] 3.5 g/dL Low 3.9-4.9 [facility] Comment on above: Order Comment: Speci men Type: BLOOD SPECIMENOrdering Facility: [facility] Address: [address] [address] Performed By: #### 2 4323-8 ####[facility] LABIA [id number] [place] [address] ALP [Catalytic activity/Vol] 136 U/L High 38-113 [facility] Comment on above: Order Comment: Speci men Type: BLOOD SPECIMENOrdering Facility: [facility] Address: [address] [address] Performed By: #### 2 4323-8 ####[facility] LABIA [id number] [place] [address] ALT [Catalytic activity/Vol] 13 U/L Normal 10-54 [facility] Comment on above: Order Comment: Speci men Type: BLOOD SPECIMENOrdering Facility: [facility] Address: [address] [address] Performed By: #### 2 4323-8 ####[facility] LABCLIA [id number] [place] [address] Anion gap [Moles/Vol] 9 mmol/L Normal 9-18 [facility] Comment on above: Order Comment: Speci men Type: BLOOD SPECIMENOrdering Facility: [facility] Address: [address] [place] [address] Performed By: #### 2 4323-8 ####[facility] LABCLIA [id number] [place] [address] AST [Catalytic activity/Vol] 13 U/L Low 14-40 [facility] Comment on above: Order Comment: Speci men Type: BLOOD SPECIMENOrdering Facility: [facility] Address: [address] [place] [address] Performed By: #### 2 4323-8 ####[facility] LABCLIA [id number] [place] [address] Bilirubin [Mass/Vol] 1.0 mg/dL Normal 0.2-1.3 [facility] Comment on above: Order Comment: Speci men Type: BLOOD SPECIMENOrdering Facility: [facility] Address: [address] [place] [address] Performed By: #### 2 4323-8 ####[facility] LABCLIA [id number] [place] [address] Calcium [Mass/Vol] 10.4 mg/dL High 8.5-10.2 [facility] Comment on above: Order Comment: Speci men Type: BLOOD SPECIMENOrdering Facility: [facility] Address: [address] [place] [address] Performed By: #### 2 4323-8 ####[facility] LABCLIA [id number] [place] [address] Chloride [Moles/Vol] 101 mmol/L Normal 97-105 [facility] Comment on above: Order Comment: Speci men Type: BLOOD SPECIMENOrdering Facility: [facility] Address: [address] [address] Performed By: #### 2 4323-8 ####[facility] LABCLIA [id number] [place] [address] CO2 [Moles/Vol] 23 mmol/L Normal 22-30 [facility] Comment on above: Order Comment: Speci men Type: BLOOD SPECIMENOrdering Facility: [facility] Address: [address] [address] Performed By: #### 2 4323-8 ####[facility] LABCLIA [id number] [place] [address] Creatinine [Mass/Vol] 0.80 mg/dL Normal 0.73-1.22 [facility] Comment on above: Order Comment: Speci men Type: BLOOD SPECIMENOrdering Facility: [facility] Address: [address] [place] [address] Performed By: #### 2 4323-8 ####[facility] LABCLIA [id number] [place] [address] ESTIMATED GLOMERULAR FILTRATION RATE 95 mL/min/1.73m??? Normal >=60 [facility] Comment on above: Order Comment: Speci men Type: BLOOD SPECIMENOrdering Facility: [facility] Address: [address] [place] [address] Result Comment: Kathy mated Glomerular Filtration Rate (eGFR) is calculated using the 2020 CKD-EPI creatinine equation. This equation utilizes serum creatinine, sex, and age as parameters. The creatinine assay has traceable calibration to isotope dilution-mass spectrometry. Refer to KDIGO guidelines for clinical interpretation. In patients with unstable renal function, e.g. those with acute kidney injury, the eGFR may not accurately reflect actual GFR. Performed By: #### 2 4323-8 ####[facility] LABCLIA [id number] [place] [address] Glucose [Mass/Vol] 251 mg/dL High 74-99 [facility] Comment on above: Order Comment: Speci men Type: BLOOD SPECIMENOrdering Facility: [facility] Address: [address] [place] [address] Result Comment: The [place] [employer] (ADA) provides guidance for cutoff values for fasting glucose and random glucose. The ADA defines fasting as no caloric intake for at least 8 hours. Fasting plasma glucose results between 100 to 125 mg/dL indicate increased risk for diabetes (prediabetes).Fasting plasma glucose results greater than or equal to 126 mg/dL meet the criteria for diagnosis of diabetes. In the absence of unequivocal hyperglycemia, results should be confirmed by repeat testing. In a patient with classic symptoms of hyperglycemia or hyperglycemic crisis, random plasma glucose results greater than or equal to 200 mg/dL meet the criteria for diagnosis of diabetes.Reference: Standards of Medical Care in Diabetes 2016, [place] [employer]. Diabetes Care. 2016.39(Suppl 1). Performed By: #### 2 4323-8 ####[facility] LABCLIA [id number] [place] [address] Potassium [Moles/Vol] 4.1 mmol/L Normal 3.7-5.1 [facility] Comment on above: Order Comment: Speci [facility] Type: BLOOD SPECIMENOrdering Facility: [facility] Address: [address] [place] [address] Performed By: #### 2 4323-8 ####[facility] LABCLIA [id number] [place] [address] Protein [Mass/Vol] 7.1 g/dL Normal 6.3-8.0 [facility] Comment on above: Order Comment: Speci men Type: BLOOD SPECIMENOrdering Facility: [facility] Address: [address] [place] [address] Performed By: #### 2 4323-8 ####[facility] LABCLIA [id number] [place] [address] Sodium [Moles/Vol] 133 mmol/L Low 136-144 [facility] Comment on above: Order Comment: Speci men Type: BLOOD SPECIMENOrdering Facility: [facility] Address: [address] [place] [address] Performed By: #### 2 4323-8 ####[facility] LABCLIA [id number] [place] [address] Urea nitrogen [Mass/Vol] 15 mg/dL Normal 9-24 [facility] Comment on above: Order Comment: Speci men Type: BLOOD SPECIMENOrdering Facility: [facility] Address: [address] [id number] Performed By: #### 2 4323-8 ####[facility] LABCLIA [id number] [place] [address] Albumin [Mass/Vol] 3.5 g/dL Low 3.9 - 4.9 g/dL [facility] ALP [Catalytic activity/Vol] 136 U/L High 38 - 113 U/L [facility] ALT [Catalytic activity/Vol] 13 U/L 10 - 54 U/L [facility] Anion gap [Moles/Vol] 9 mmol/L 9 - 18 mmol/L [facility] AST [Catalytic activity/Vol] 13 U/L Low 14 - 40 U/L [facility] Bilirubin [Mass/Vol] 1.0 mg/dL 0.2 - 1.3 mg/dL [facility] Calcium [Mass/Vol] 10.4 mg/dL High 8.5 - 10. 2 mg/dL [facility] Chloride [Moles/Vol] 101 mmol/L 97 - 105 mmol/L [facility] CO2 [Moles/Vol] 23 mmol/L 22 - 30 mmol/L [facility] Creatinine [Mass/Vol] 0.80 mg/dL 0.73 - 1.22 mg/dL [facility] Estimated Glomerular Filtration Rate 95 mL/min/1.73m >=60 mL/min/1.73m [facility] Glucose [Mass/Vol] 251 mg/dL High 74 - 99 mg/dL [facility] Potassium [Moles/Vol] 4.1 mmol/L 3.7 - 5.1 mmol/L [facility] Protein [Mass/Vol] 7.1 g/dL 6.3 - 8.0 g/dL [facility] Sodium [Moles/Vol] 133 mmol/L Low 136 - 144 mmol/L [facility] Urea nitrogen [Mass/Vol] 15 mg/dL 9 - 24 mg/dL [facility] CNPNon 11-16-[address] [facility] CBC W Auto Differential pane l (Bld)on 11-10-2022 Basophils (Bld) [#/Vol] 0.03 10*3/uL Normal <0.11 [facility] Comment on above: Order Comment: Speci men Type: BLOOD SPECIMENOrdering Facility: [facility] Address: [address] [place] [address] Performed By: #### 5 7021-8 ####[facility] LABCLIA [id number] [place] [address] Basophils/100 WBC (Bld) 0.4 % Normal [facility] Comment on above: Order Comment: Speci men Type: BLOOD SPECIMENOrdering Facility: [facility] Address: [address] [place] [address] Performed By: #### 5 7021-8 ####[facility] LABCLIA [id number] [place] [address] Differential cell count method Nom (Bld) Auto Normal [facility] Comment on above: Order Comment: Speci men Type: BLOOD SPECIMENOrdering Facility: [facility] Address: [address] [place] [address] Performed By: #### 5 7021-8 ####[facility] LABCLIA [id number] [place] [address] Eosinophils (Bld) [#/Vol] 0.04 10*3/uL Normal <0.46 [facility] Comment on above: Order Comment: Speci men Type: BLOOD SPECIMENOrdering Facility: [facility] Address: [address] [place] [address] Performed By: #### 5 7021-8 ####[facility] LABCLIA [id number] [place] [address] Eosinophils/100 WBC (Bld) 0.5 % Normal [facility] Comment on above: Order Comment: Speci men Type: BLOOD SPECIMENOrdering Facility: [facility] Address: [address] [address] Performed By: #### 5 7021-8 ####[facility] LABCLIA [id number] [place] [address] Erythrocyte distribution width (RBC) [Ratio] 14.2 % Normal 11.5-15.0 [facility] Comment on above: Order Comment: Speci men Type: BLOOD SPECIMENOrdering Facility: [facility] Address: [address] [place] [address] Performed By: #### 5 7021-8 ####[facility] LABCLIA [id number] [place] [address] Hematocrit (Bld) [Volume fraction] 37.4 % Low 39.0-51.0 [facility] Comment on above: Order Comment: Speci men Type: BLOOD SPECIMENOrdering Facility: [facility] Address: [address] [place] [address] Performed By: #### 5 7021-8 ####[facility] LABIA [id number] [place] [address] Hemoglobin (Bld) [Mass/Vol] 12.2 g/dL Low 13.0-17.0 [facility] Comment on above: Order Comment: Speci men Type: BLOOD SPECIMENOrdering Facility: [facility] Address: [address] [place] [address] Performed By: #### 5 7021-8 ####[facility] LABCLIA [id number] [place] [address] Immature granulocytes (Bld) [#/Vol] 0.04 10*3/uL Normal <0.10 [facility] Comment on above: Order Comment: Speci men Type: BLOOD SPECIMENOrdering Facility: [facility] Address: [address] [place] [address] Performed By: #### 5 7021-8 ####[facility] LABCLIA [id number] [place] [address] Immature granulocytes/100 WBC (Bld) 0.5 % Normal [facility] Comment on above: Order Comment: Speci men Type: BLOOD SPECIMENOrdering Facility: [facility] Address: [address] [place] [address] Performed By: #### 5 7021-8 ####[facility] LABCLIA [id number] [place] [address] Lymphocytes (Bld) [#/Vol] 1.39 10*3/uL Normal 1.00-4.00 [facility] Comment on above: Order Comment: Speci men Type: BLOOD SPECIMENOrdering Facility: [facility] Address: [address] [place] [address] Performed By: #### 5 7021-8 ####[facility] LABCLIA [id number] [place] [address] Lymphocytes/100 WBC (Bld) 17.4 % Normal [facility] Comment on above: Order Comment: Speci men Type: BLOOD SPECIMENOrdering Facility: [facility] Address: [address] [place] [address] Performed By: #### 5 7021-8 ####[facility] LABCLIA [id number] [place] [address] MCH (RBC) [Entitic mass] 31.6 pg Normal 26.0-34.0 [facility] Comment on above: Order Comment: Speci men Type: BLOOD SPECIMENOrdering Facility: [facility] Address: [address] [place] [address] Performed By: #### 5 7021-8 ####[facility] LABCLIA [id number] [place] [address] MCHC (RBC) [Mass/Vol] 32.6 g/dL Normal 30.5-36.0 [facility] Comment on above: Order Comment: Speci men Type: BLOOD SPECIMENOrdering Facility: [facility] Address: [address] [place] [address] Performed By: #### 5 7021-8 ####[facility] LABIA [id number] [place] [address] MCV (RBC) [Entitic vol] 96.9 fL Normal 80.0-100.0 [facility] Comment on above: Order Comment: Speci men Type: BLOOD SPECIMENOrdering Facility: [facility] Address: [address] [place] [address] Performed By: #### 5 7021-8 ####[facility] LABIA [id number] [place] [address] Monocytes (Bld) [#/Vol] 0.53 10*3/uL Normal <0.87 [facility] Comment on above: Order Comment: Speci men Type: BLOOD SPECIMENOrdering Facility: [facility] Address: [address] [place] [address] Performed By: #### 5 7021-8 ####[facility] LABIA [id number] [place] [address] Monocytes/100 WBC (Bld) 6.6 % Normal [facility] Comment on above: Order Comment: Speci men Type: BLOOD SPECIMENOrdering Facility: [facility] Address: [address] [place] [address] Performed By: #### 5 7021-8 ####[facility] LABIA [id number] [place] [address] Neutrophils (Bld) [#/Vol] 5.97 10*3/uL Normal 1.45-7.50 [facility] Comment on above: Order Comment: Speci men Type: BLOOD SPECIMENOrdering Facility: [facility] Address: [address] [place] [address] Performed By: #### 5 7021-8 ####[facility] LABCLIA [id number] [place] [address] Neutrophils/100 WBC (Bld) 74.6 % Normal [facility] Comment on above: Order Comment: Speci men Type: BLOOD SPECIMENOrdering Facility: [facility] Address: [address] [place] [address] Performed By: #### 5 7021-8 ####[facility] LABCLIA [id number] [place] [address] Nucleated RBC (Bld) [#/Vol] 10*3/uL Normal <0.01 [facility] Comment on above: Order Comment: Speci men Type: BLOOD SPECIMENOrdering Facility: [facility] Address: [address] [place] [address] Performed By: #### 5 7021-8 ####[facility] LABCLIA [id number] [place] [address] Nucleated RBC/100 WBC (Bld) [Ratio] 0.0 /[address] [facility] Comment on above: Order Comment: Speci men Type: BLOOD SPECIMENOrdering Facility: [facility] Address: [address] [place] [address] Performed By: #### 5 7021-8 ####[facility] LABCLIA [id number] [place] [address] Platelet mean volume (Bld) [Entitic vol] 11.3 fL Normal 9.0-12.7 [facility] Comment on above: Order Comment: Speci men Type: BLOOD SPECIMENOrdering Facility: [facility] Address: [address] [place] [address] Performed By: #### 5 7021-8 ####[facility] LABCLIA [id number] [place] [address] Platelets (Bld) [#/Vol] 254 10*3/uL Normal 150-400 [facility] Comment on above: Order Comment: Speci men Type: BLOOD SPECIMENOrdering Facility: [facility] Address: [address] [place] [address] Performed By: #### 5 7021-8 ####[facility] LABCLIA [id number] [place] [address] RBC (Bld) [#/Vol] 3.86 10*6/uL Low 4.20-6.00 [facility] Comment on above: Order Comment: Speci men Type: BLOOD SPECIMENOrdering Facility: [facility] Address: [address] [place] [address] Performed By: #### 5 7021-8 ####[facility] LABCLIA [id number] [place] [address] WBC (Bld) [#/Vol] 8.00 10*3/uL Normal 3.70-11.00 [facility] Comment on above: Order Comment: Speci men Type: BLOOD SPECIMENOrdering Facility: [facility] Address: [address] [place] [address] Performed By: #### 5 7021-8 ####[facility] LABCLIA [id number] [place] [address] Basophils (Bld) [#/Vol] 0.03 10*3/uL <0.11 k/uL [facility] Basophils/100 WBC (Bld) 0.4 % [facility] Differential cell count method Nom (Bld) Auto [facility] Eosinophils (Bld) [#/Vol] 0.04 10*3/uL <0.46 k/uL [facility] Eosinophils/100 WBC (Bld) 0.5 % [facility] Erythrocyte distribution width (RBC) [Ratio] 14.2 % 11.5 - 15.0 % [facility] Hematocrit (Bld) [Volume fraction] 37.4 % Low 39.0 - 51.0 % [facility] Hemoglobin (Bld) [Mass/Vol] 12.2 g/dL Low 13.0 - 17.0 g/dL [facility] Immature granulocytes (Bld) [#/Vol] 0.04 10*3/uL <0.10 k/uL [facility] Immature granulocytes/100 WBC (Bld) 0.5 % [facility] Lymphocytes (Bld) [#/Vol] 1.39 10*3/uL 1.00 - 4.00 k/uL [facility] Lymphocytes/100 WBC (Bld) 17.4 % [facility] MCH (RBC) [Entitic mass] 31.6 pg 26.0 - 34.0 pg [facility] MCHC (RBC) [Mass/Vol] 32.6 g/dL 30.5 - 36.0 g/dL [facility] MCV (RBC) [Entitic vol] 96.9 fL 80.0 - 100.0 fL [facility] Monocytes (Bld) [#/Vol] 0.53 10*3/uL <0.87 k/uL [facility] Monocytes/100 WBC (Bld) 6.6 % [facility] Neutrophils (Bld) [#/Vol] 5.97 10*3/uL 1.45 - 7.50 k/uL [facility] Neutrophils/100 WBC (Bld) 74.6 % [facility] Nucleated RBC (Bld) [#/Vol] <0.01 k/uL [facility] Nucleated RBC/100 WBC (Bld) [Ratio] 0.0 /100 WBC [facility] Platelet mean volume (Bld) [Entitic vol] 11.3 fL 9.0 - 12.7 fL [facility] Platelets (Bld) [#/Vol] 254 10*3/uL 150 - 400 k/uL [facility] RBC (Bld) [#/Vol] 3.86 10*6/uL Low 4.20 - 6.0 0 m/uL [facility] WBC (Bld) [#/Vol] 8.00 10*3/uL 3.70 - 11. 00 k/uL [facility] CNOVSPon 11-10-[address] [facility] CNPNon 11-10-[address] [facility] Cancer Ag19-9 SerPl-aCncon 0 11-10-2022 Cancer Ag 19-9 Qn 1706.0 [arb'U]/mL High <36.0 [facility] Comment on above: Order Comment: Speci men Type: BLOOD SPECIMENOrdering Facility: [facility] Address: [address] [place] [id number] Result Comment: Canc er antigen 19-9 test is used as an aid in monitoring response to treatment or recurrence in patients with established pancreatic, hepatobiliary, or gastrointestinal malignancies. Clinical correlation is required.The CA 19-9 Antigen test was performed using the [employer] DXI paramagnetic particle chemiluminescent immunoassay method. Results obtained with different assay methods or kits cannot be used interchangeably. Performed By: #### 2 4108-3 ####[facility] LABCLIA [id number] [place] [address] [facility] Comprehensive metabolic 2000 panelon 11-10-2022 Albumin [Mass/Vol] 4.0 g/dL Normal 3.9-4.9 [facility] Comment on above: Order Comment: Speci men Type: BLOOD SPECIMENOrdering Facility: [facility] Address: [address] [place] [address] Performed By: #### 2 4323-8 ####[facility] LABCLIA [id number] [place] [address] ALP [Catalytic activity/Vol] 180 U/L High 38-113 [facility] Comment on above: Order Comment: Speci men Type: BLOOD SPECIMENOrdering Facility: [facility] Address: [address] [address] Performed By: #### 2 4323-8 ####[facility] LABCLIA [id number] [place] [address] ALT [Catalytic activity/Vol] 26 U/L Normal 10-54 [facility] Comment on above: Order Comment: Speci men Type: BLOOD SPECIMENOrdering Facility: [facility] Address: [address] [address] Performed By: #### 2 4323-8 ####[facility] LABCLIA [id number] [place] [address] Anion gap [Moles/Vol] 9 mmol/L Normal 9-18 [facility] Comment on above: Order Comment: Speci men Type: BLOOD SPECIMENOrdering Facility: [facility] Address: [address] [address] Performed By: #### 2 4323-8 ####[facility] LABCLIA [id number] [place] [address] AST [Catalytic activity/Vol] 21 U/L Normal 14-40 [facility] Comment on above: Order Comment: Speci men Type: BLOOD SPECIMENOrdering Facility: [facility] Address: [address] [place] [address] Performed By: #### 2 4323-8 ####[facility] LABCLIA [id number] [place] [address] Bilirubin [Mass/Vol] 0.9 mg/dL Normal 0.2-1.3 [facility] Comment on above: Order Comment: Speci men Type: BLOOD SPECIMENOrdering Facility: [facility] Address: [address] [place] [address] Performed By: #### 2 4323-8 ####[facility] LABCLIA [id number] [place] [address] Calcium [Mass/Vol] 11.0 mg/dL High 8.5-10.2 [facility] Comment on above: Order Comment: Speci men Type: BLOOD SPECIMENOrdering Facility: [facility] Address: [address] [place] [address] Performed By: #### 2 4323-8 ####[facility] LABCLIA [id number] [place] [address] Chloride [Moles/Vol] 100 mmol/L Normal 97-105 [facility] Comment on above: Order Comment: Speci men Type: BLOOD SPECIMENOrdering Facility: [facility] Address: [address] [place] [address] Performed By: #### 2 4323-8 ####[facility] LABCLIA [id number] [place] [address] CO2 [Moles/Vol] 23 mmol/L Normal 22-30 [facility] Comment on above: Order Comment: Speci men Type: BLOOD SPECIMENOrdering Facility: [facility] Address: [address] [address] Performed By: #### 2 4323-8 ####[facility] LABCLIA [id number] [place] [address] Creatinine [Mass/Vol] 0.77 mg/dL Normal 0.73-1.22 [facility] Comment on above: Order Comment: Speci men Type: BLOOD SPECIMENOrdering Facility: [facility] Address: [address] [place] [address] Performed By: #### 2 4323-8 ####[facility] LABCLIA [id number] [place] [address] ESTIMATED GLOMERULAR FILTRATION RATE 96 mL/min/1.73m??? Normal >=60 [facility] Comment on above: Order Comment: Speci men Type: BLOOD SPECIMENOrdering Facility: [facility] Address: [address] [place] [address] Result Comment: Kathy mated Glomerular Filtration Rate (eGFR) is calculated using the 2020 CKD-EPI creatinine equation. This equation utilizes serum creatinine, sex, and age as parameters. The creatinine assay has traceable calibration to isotope dilution-mass spectrometry. Refer to KDIGO guidelines for clinical interpretation. In patients with unstable renal function, e.g. those with acute kidney injury, the eGFR may not accurately reflect actual GFR. Performed By: #### 2 4323-8 ####[facility] LABCLIA [id number] [place] [address] Glucose [Mass/Vol] 782 mg/dL High 74-99 [facility] Comment on above: Order Comment: Noemí hoff Type: BLOOD SPECIMENOrdering Facility: [facility] Address: [address] [place] [address] Result Comment: The [place] [employer] (ADA) provides guidance for cutoff values for fasting glucose and random glucose. The ADA defines fasting as no caloric intake for at least 8 hours. Fasting plasma glucose results between 100 to 125 mg/dL indicate increased risk for diabetes (prediabetes).Fasting plasma glucose results greater than or equal to 126 mg/dL meet the criteria for diagnosis of diabetes. In the absence of unequivocal hyperglycemia, results should be confirmed by repeat testing. In a patient with classic symptoms of hyperglycemia or hyperglycemic crisis, random plasma glucose results greater than or equal to 200 mg/dL meet the criteria for diagnosis of diabetes.Reference: Standards of Medical Care in Diabetes 2016, [place] [employer]. Diabetes Care. 2016.39(Suppl 1). Performed By: #### 2 4323-8 ####[facility] LABCLIA [id number] [place] [address] Potassium [Moles/Vol] 4.7 mmol/L Normal 3.7-5.1 [facility] Comment on above: Order Comment: Speci men Type: BLOOD SPECIMENOrdering Facility: [facility] Address: [address] [place] [address] Performed By: #### 2 4323-8 ####[facility] LABCLIA [id number] [place] [address] Protein [Mass/Vol] 7.4 g/dL Normal 6.3-8.0 [facility] Comment on above: Order Comment: Speci men Type: BLOOD SPECIMENOrdering Facility: [facility] Address: [address] [place] [address] Performed By: #### 2 4323-8 ####[facility] LABCLIA [id number] [place] [address] Sodium [Moles/Vol] 132 mmol/L Low 136-144 [facility] Comment on above: Order Comment: Speci men Type: BLOOD SPECIMENOrdering Facility: [facility] Address: [address] [place] [address] Performed By: #### 2 4323-8 ####[facility] LABCLIA [id number] [place] [address] Urea nitrogen [Mass/Vol] 16 mg/dL Normal 9-24 [facility] Comment on above: Order Comment: Speci men Type: BLOOD SPECIMENOrdering Facility: [facility] Address: [place] [address] Performed By: #### 2 4323-8 ####[facility] LABCLIA [id number] [place] [address] Albumin [Mass/Vol] 4.0 g/dL 3.9 - 4.9 g/dL [facility] ALP [Catalytic activity/Vol] 180 U/L High 38 - 113 U/L [facility] ALT [Catalytic activity/Vol] 26 U/L 10 - 54 U/L [facility] Anion gap [Moles/Vol] 9 mmol/L 9 - 18 mmol/L [facility] AST [Catalytic activity/Vol] 21 U/L 14 - 40 U/L [facility] Bilirubin [Mass/Vol] 0.9 mg/dL 0.2 - 1.3 mg/dL [facility] Calcium [Mass/Vol] 11.0 mg/dL High 8.5 - 10. 2 mg/dL [facility] Chloride [Moles/Vol] 100 mmol/L 97 - 105 mmol/L [facility] CO2 [Moles/Vol] 23 mmol/L 22 - 30 mmol/L [facility] Creatinine [Mass/Vol] 0.77 mg/dL 0.73 - 1.22 mg/dL [facility] Estimated Glomerular Filtration Rate 96 mL/min/1.73m >=60 mL/min/1.73m [facility] Glucose [Mass/Vol] 782 mg/dL High 74 - 99 mg/dL [facility] Potassium [Moles/Vol] 4.7 mmol/L 3.7 - 5.1 mmol/L [facility] Protein [Mass/Vol] 7.4 g/dL 6.3 - 8.0 g/dL [facility] Sodium [Moles/Vol] 132 mmol/L Low 136 - 144 mmol/L [facility] Urea nitrogen [Mass/Vol] 16 mg/dL 9 - 24 mg/dL [facility] CNPNon 11-07-[address] [facility] CT ABD/PEL W IVCONon 023 CT ABD/PEL W IVCON Normal [facility] CT CHEST W IVCONon 3 CT CHEST W IVCON Normal [facility] CBC W Auto Differential pane l (Bld)on 09-29-2022 Basophils (Bld) [#/Vol] <0.11 k/uL [facility] Basophils/100 WBC (Bld) 0.2 % [facility] Differential cell count method Nom (Bld) Auto [facility] Eosinophils (Bld) [#/Vol] 0.06 10*3/uL <0.46 k/uL [facility] Eosinophils/100 WBC (Bld) 0.7 % [facility] Erythrocyte distribution width (RBC) [Ratio] 14.3 % 11.5 - 15.0 % [facility] Hematocrit (Bld) [Volume fraction] 35.6 % Low 39.0 - 51.0 % [facility] Hemoglobin (Bld) [Mass/Vol] 11.3 g/dL Low 13.0 - 17.0 g/dL [facility] Immature granulocytes (Bld) [#/Vol] <0.10 k/uL [facility] Immature granulocytes/100 WBC (Bld) 0.2 % [facility] Lymphocytes (Bld) [#/Vol] 1.48 10*3/uL 1.00 - 4.00 k/uL [facility] Lymphocytes/100 WBC (Bld) 17.4 % [facility] MCH (RBC) [Entitic mass] 31.1 pg 26.0 - 34.0 pg [facility] MCHC (RBC) [Mass/Vol] 31.7 g/dL 30.5 - 36.0 g/dL [facility] MCV (RBC) [Entitic vol] 98.1 fL 80.0 - 100.0 fL [facility] Monocytes (Bld) [#/Vol] 0.68 10*3/uL <0.87 k/uL [facility] Monocytes/100 WBC (Bld) 8.0 % [facility] Neutrophils (Bld) [#/Vol] 6.24 10*3/uL 1.45 - 7.50 k/uL [facility] Neutrophils/100 WBC (Bld) 73.5 % [facility] Nucleated RBC (Bld) [#/Vol] <0.01 k/uL [facility] Nucleated RBC/100 WBC (Bld) [Ratio] 0.0 /100 WBC [facility] Platelet mean volume (Bld) [Entitic vol] 10.6 fL 9.0 - 12.7 fL [facility] Platelets (Bld) [#/Vol] 260 10*3/uL 150 - 400 k/uL [facility] RBC (Bld) [#/Vol] 3.63 10*6/uL Low 4.20 - 6.0 0 m/uL [facility] WBC (Bld) [#/Vol] 8.50 10*3/uL 3.70 - 11. 00 k/uL [facility] Comprehensive metabolic 2000 panelon 09-29-2022 Albumin [Mass/Vol] 4.0 g/dL 3.9 - 4.9 g/dL [facility] ALP [Catalytic activity/Vol] 170 U/L High 38 - 113 U/L [facility] ALT [Catalytic activity/Vol] 23 U/L 10 - 54 U/L [facility] Anion gap [Moles/Vol] 9 mmol/L 9 - 18 mmol/L [facility] AST [Catalytic activity/Vol] 18 U/L 14 - 40 U/L [facility] Bilirubin [Mass/Vol] 1.1 mg/dL 0.2 - 1.3 mg/dL [facility] Calcium [Mass/Vol] 10.4 mg/dL High 8.5 - 10. 2 mg/dL [facility] Chloride [Moles/Vol] 100 mmol/L 97 - 105 mmol/L [facility] CO2 [Moles/Vol] 25 mmol/L 22 - 30 mmol/L [facility] Creatinine [Mass/Vol] 0.75 mg/dL 0.73 - 1.22 mg/dL [facility] Estimated Glomerular Filtration Rate 96 mL/min/1.73m >=60 mL/min/1.73m [facility] Glucose [Mass/Vol] 377 mg/dL High 74 - 99 mg/dL [facility] Potassium [Moles/Vol] 5.0 mmol/L 3.7 - 5.1 mmol/L [facility] Protein [Mass/Vol] 7.1 g/dL 6.3 - 8.0 g/dL [facility] Sodium [Moles/Vol] 134 mmol/L Low 136 - 144 mmol/L [facility] Urea nitrogen [Mass/Vol] 19 mg/dL 9 - 24 mg/dL [facility] CBC W Auto Differential pane l (Bld)on 08-02-2022 Basophils (Bld) [#/Vol] <0.11 k/uL [facility] Basophils/100 WBC (Bld) 0.2 % [facility] Differential cell count method Nom (Bld) Auto [facility] Eosinophils (Bld) [#/Vol] 0.07 10*3/uL <0.46 k/uL [facility] Eosinophils/100 WBC (Bld) 0.7 % [facility] Erythrocyte distribution width (RBC) [Ratio] 15.3 % High 11.5 - 15.0 % [facility] Hematocrit (Bld) [Volume fraction] 35.3 % Low 39.0 - 51.0 % [facility] Hemoglobin (Bld) [Mass/Vol] 11.5 g/dL Low 13.0 - 17.0 g/dL [facility] Immature granulocytes (Bld) [#/Vol] 0.03 10*3/uL <0.10 k/uL [facility] Immature granulocytes/100 WBC (Bld) 0.3 % [facility] Lymphocytes (Bld) [#/Vol] 1.91 10*3/uL 1.00 - 4.00 k/uL [facility] Lymphocytes/100 WBC (Bld) 20.2 % [facility] MCH (RBC) [Entitic mass] 31.3 pg 26.0 - 34.0 pg [facility] MCHC (RBC) [Mass/Vol] 32.6 g/dL 30.5 - 36.0 g/dL [facility] MCV (RBC) [Entitic vol] 96.2 fL 80.0 - 100.0 fL [facility] Monocytes (Bld) [#/Vol] 0.81 10*3/uL <0.87 k/uL [facility] Monocytes/100 WBC (Bld) 8.6 % [facility] Neutrophils (Bld) [#/Vol] 6.60 10*3/uL 1.45 - 7.50 k/uL [facility] Neutrophils/100 WBC (Bld) 70.0 % [facility] Nucleated RBC (Bld) [#/Vol] <0.01 k/uL [facility] Nucleated RBC/100 WBC (Bld) [Ratio] 0.0 /100 WBC [facility] Platelet mean volume (Bld) [Entitic vol] 10.2 fL 9.0 - 12.7 fL [facility] Platelets (Bld) [#/Vol] 257 10*3/uL 150 - 400 k/uL [facility] RBC (Bld) [#/Vol] 3.67 10*6/uL Low 4.20 - 6.0 0 m/uL [facility] WBC (Bld) [#/Vol] 9.44 10*3/uL 3.70 - 11. 00 k/uL [facility] Comprehensive metabolic 2000 panelon 08-02-2022 Albumin [Mass/Vol] 4.2 g/dL 3.9 - 4.9 g/dL [facility] ALP [Catalytic activity/Vol] 140 U/L High 38 - 113 U/L [facility] ALT [Catalytic activity/Vol] 17 U/L 10 - 54 U/L [facility] Anion gap [Moles/Vol] 8 mmol/L Low 9 - 18 mmol/L [facility] AST [Catalytic activity/Vol] 20 U/L 14 - 40 U/L [facility] Bilirubin [Mass/Vol] 1.0 mg/dL 0.2 - 1.3 mg/dL [facility] Calcium [Mass/Vol] 10.6 mg/dL High 8.5 - 10. 2 mg/dL [facility] Chloride [Moles/Vol] 105 mmol/L 97 - 105 mmol/L [facility] CO2 [Moles/Vol] 24 mmol/L 22 - 30 mmol/L [facility] Creatinine [Mass/Vol] 0.81 mg/dL 0.73 - 1.22 mg/dL [facility] Estimated Glomerular Filtration Rate 94 mL/min/1.73m >=60 mL/min/1.73m [facility] Glucose [Mass/Vol] 151 mg/dL High 74 - 99 mg/dL [facility] Potassium [Moles/Vol] 4.7 mmol/L 3.7 - 5.1 mmol/L [facility] Protein [Mass/Vol] 7.3 g/dL 6.3 - 8.0 g/dL [facility] Sodium [Moles/Vol] 137 mmol/L 136 - 144 mmol/L [facility] Urea nitrogen [Mass/Vol] 18 mg/dL 9 - 24 mg/dL [facility] CBC W Auto Differential pane l (Bld)on 06-29-2022 Basophils (Bld) [#/Vol] 0.03 10*3/uL <0.11 k/uL [facility] Basophils/100 WBC (Bld) 0.3 % [facility] Differential cell count method Nom (Bld) Auto [facility] Eosinophils (Bld) [#/Vol] 0.09 10*3/uL <0.46 k/uL [facility] Eosinophils/100 WBC (Bld) 0.9 % [facility] Erythrocyte distribution width (RBC) [Ratio] 15.3 % High 11.5 - 15.0 % [facility] Hematocrit (Bld) [Volume fraction] 36.8 % Low 39.0 - 51.0 % [facility] Hemoglobin (Bld) [Mass/Vol] 11.7 g/dL Low 13.0 - 17.0 g/dL [facility] Immature granulocytes (Bld) [#/Vol] 0.03 10*3/uL <0.10 k/uL [facility] Immature granulocytes/100 WBC (Bld) 0.3 % [facility] Lymphocytes (Bld) [#/Vol] 2.15 10*3/uL 1.00 - 4.00 k/uL [facility] Lymphocytes/100 WBC (Bld) 20.9 % [facility] MCH (RBC) [Entitic mass] 30.5 pg 26.0 - 34.0 pg [facility] MCHC (RBC) [Mass/Vol] 31.8 g/dL 30.5 - 36.0 g/dL [facility] MCV (RBC) [Entitic vol] 96.1 fL 80.0 - 100.0 fL [facility] Monocytes (Bld) [#/Vol] 1.05 10*3/uL High <0.87 k/uL [facility] Monocytes/100 WBC (Bld) 10.2 % [facility] Neutrophils (Bld) [#/Vol] 6.95 10*3/uL 1.45 - 7.50 k/uL [facility] Neutrophils/100 WBC (Bld) 67.4 % [facility] Nucleated RBC (Bld) [#/Vol] <0.01 k/uL [facility] Nucleated RBC/100 WBC (Bld) [Ratio] 0.0 /100 WBC [facility] Platelet mean volume (Bld) [Entitic vol] 9.8 fL 9.0 - 12.7 fL [facility] Platelets (Bld) [#/Vol] 288 10*3/uL 150 - 400 k/uL [facility] RBC (Bld) [#/Vol] 3.83 10*6/uL Low 4.20 - 6.0 0 m/uL [facility] WBC (Bld) [#/Vol] 10.30 10*3/uL 3.70 - 11 .00 k/uL [facility] Comprehensive metabolic 2000 panelon 06-29-2022 Albumin [Mass/Vol] 4.2 g/dL 3.9 - 4.9 g/dL [facility] ALP [Catalytic activity/Vol] 146 U/L High 38 - 113 U/L [facility] ALT [Catalytic activity/Vol] 21 U/L 10 - 54 U/L [facility] Anion gap [Moles/Vol] 8 mmol/L Low 9 - 18 mmol/L [facility] AST [Catalytic activity/Vol] 20 U/L 14 - 40 U/L [facility] Bilirubin [Mass/Vol] 0.9 mg/dL 0.2 - 1.3 mg/dL [facility] Calcium [Mass/Vol] 10.6 mg/dL High 8.5 - 10. 2 mg/dL [facility] Chloride [Moles/Vol] 100 mmol/L 97 - 105 mmol/L [facility] CO2 [Moles/Vol] 25 mmol/L 22 - 30 mmol/L [facility] Creatinine [Mass/Vol] 0.83 mg/dL 0.73 - 1.22 mg/dL [facility] Estimated Glomerular Filtration Rate 94 mL/min/1.73m >=60 mL/min/1.73m [facility] Glucose [Mass/Vol] 189 mg/dL High 74 - 99 mg/dL [facility] Potassium [Moles/Vol] 4.7 mmol/L 3.7 - 5.1 mmol/L [facility] Protein [Mass/Vol] 7.6 g/dL 6.3 - 8.0 g/dL [facility] Sodium [Moles/Vol] 133 mmol/L Low 136 - 144 mmol/L [facility] Urea nitrogen [Mass/Vol] 21 mg/dL 9 - 24 mg/dL [facility] CBC W Auto Differential pane l (Bld)on 06-01-2022 Basophils (Bld) [#/Vol] 0.05 10*3/uL <0.11 k/uL [facility] Basophils/100 WBC (Bld) 0.6 % [facility] Differential cell count method Nom (Bld) Auto [facility] Eosinophils (Bld) [#/Vol] 0.11 10*3/uL <0.46 k/uL [facility] Eosinophils/100 WBC (Bld) 1.3 % [facility] Erythrocyte distribution width (RBC) [Ratio] 15.9 % High 11.5 - 15.0 % [facility] Hematocrit (Bld) [Volume fraction] 34.6 % Low 39.0 - 51.0 % [facility] Hemoglobin (Bld) [Mass/Vol] 11.0 g/dL Low 13.0 - 17.0 g/dL [facility] Immature granulocytes (Bld) [#/Vol] 0.03 10*3/uL <0.10 k/uL [facility] Immature granulocytes/100 WBC (Bld) 0.4 % [facility] Lymphocytes (Bld) [#/Vol] 1.92 10*3/uL 1.00 - 4.00 k/uL [facility] Lymphocytes/100 WBC (Bld) 22.6 % [facility] MCH (RBC) [Entitic mass] 31.7 pg 26.0 - 34.0 pg [facility] MCHC (RBC) [Mass/Vol] 31.8 g/dL 30.5 - 36.0 g/dL [facility] MCV (RBC) [Entitic vol] 99.7 fL 80.0 - 100.0 fL [facility] Monocytes (Bld) [#/Vol] 0.95 10*3/uL High <0.87 k/uL [facility] Monocytes/100 WBC (Bld) 11.2 % [facility] Neutrophils (Bld) [#/Vol] 5.43 10*3/uL 1.45 - 7.50 k/uL [facility] Neutrophils/100 WBC (Bld) 63.9 % [facility] Nucleated RBC (Bld) [#/Vol] <0.01 k/uL [facility] Nucleated RBC/100 WBC (Bld) [Ratio] 0.0 /100 WBC [facility] Platelet mean volume (Bld) [Entitic vol] 9.9 fL 9.0 - 12.7 fL [facility] Platelets (Bld) [#/Vol] 354 10*3/uL 150 - 400 k/uL [facility] RBC (Bld) [#/Vol] 3.47 10*6/uL Low 4.20 - 6.0 0 m/uL [facility] WBC (Bld) [#/Vol] 8.49 10*3/uL 3.70 - 11. 00 k/uL [facility] Comprehensive metabolic 2000 panelon 06-01-2022 Albumin [Mass/Vol] 4.3 g/dL 3.9 - 4.9 g/dL [facility] ALP [Catalytic activity/Vol] 138 U/L High 38 - 113 U/L [facility] ALT [Catalytic activity/Vol] 20 U/L 10 - 54 U/L [facility] Anion gap [Moles/Vol] 7 mmol/L Low 9 - 18 mmol/L [facility] AST [Catalytic activity/Vol] 19 U/L 14 - 40 U/L [facility] Bilirubin [Mass/Vol] 0.5 mg/dL 0.2 - 1.3 mg/dL [facility] Calcium [Mass/Vol] 10.1 mg/dL 8.5 - 10. 2 mg/dL [facility] Chloride [Moles/Vol] 103 mmol/L 97 - 105 mmol/L [facility] CO2 [Moles/Vol] 25 mmol/L 22 - 30 mmol/L [facility] Creatinine [Mass/Vol] 0.76 mg/dL 0.73 - 1.22 mg/dL [facility] Estimated Glomerular Filtration Rate 96 mL/min/1.73m >=60 mL/min/1.73m [facility] Glucose [Mass/Vol] 179 mg/dL High 74 - 99 mg/dL [facility] Potassium [Moles/Vol] 4.9 mmol/L 3.7 - 5.1 mmol/L [facility] Protein [Mass/Vol] 6.9 g/dL 6.3 - 8.0 g/dL [facility] Sodium [Moles/Vol] 135 mmol/L Low 136 - 144 mmol/L [facility] Urea nitrogen [Mass/Vol] 20 mg/dL 9 - 24 mg/dL [facility] CBC W Auto Differential pane l (Bld)on 05-11-2022 Basophils (Bld) [#/Vol] <0.11 k/uL [facility] Basophils/100 WBC (Bld) 0.3 % [facility] Differential cell count method Nom (Bld) Auto [facility] Eosinophils (Bld) [#/Vol] 0.10 10*3/uL <0.46 k/uL [facility] Eosinophils/100 WBC (Bld) 1.6 % [facility] Erythrocyte distribution width (RBC) [Ratio] 16.8 % High 11.5 - 15.0 % [facility] Hematocrit (Bld) [Volume fraction] 30.7 % Low 39.0 - 51.0 % [facility] Hemoglobin (Bld) [Mass/Vol] 9.5 g/dL Low 13.0 - 17.0 g/dL [facility] Immature granulocytes (Bld) [#/Vol] 0.03 10*3/uL <0.10 k/uL [facility] Immature granulocytes/100 WBC (Bld) 0.5 % [facility] Lymphocytes (Bld) [#/Vol] 1.49 10*3/uL 1.00 - 4.00 k/uL [facility] Lymphocytes/100 WBC (Bld) 24.0 % [facility] MCH (RBC) [Entitic mass] 31.6 pg 26.0 - 34.0 pg [facility] MCHC (RBC) [Mass/Vol] 30.9 g/dL 30.5 - 36.0 g/dL [facility] MCV (RBC) [Entitic vol] 102.0 fL High 80.0 - 100.0 fL [facility] Monocytes (Bld) [#/Vol] 0.79 10*3/uL <0.87 k/uL [facility] Monocytes/100 WBC (Bld) 12.7 % [facility] Neutrophils (Bld) [#/Vol] 3.79 10*3/uL 1.45 - 7.50 k/uL [facility] Neutrophils/100 WBC (Bld) 60.9 % [facility] Nucleated RBC (Bld) [#/Vol] <0.01 k/uL [facility] Nucleated RBC/100 WBC (Bld) [Ratio] 0.0 /100 WBC [facility] Platelet mean volume (Bld) [Entitic vol] 9.9 fL 9.0 - 12.7 fL [facility] Platelets (Bld) [#/Vol] 347 10*3/uL 150 - 400 k/uL [facility] RBC (Bld) [#/Vol] 3.01 10*6/uL Low 4.20 - 6.0 0 m/uL [facility] WBC (Bld) [#/Vol] 6.22 10*3/uL 3.70 - 11. 00 k/uL [facility] Comprehensive metabolic 2000 panelon 05-11-2022 Albumin [Mass/Vol] 3.9 g/dL 3.9 - 4.9 g/dL [facility] ALP [Catalytic activity/Vol] 134 U/L High 38 - 113 U/L [facility] ALT [Catalytic activity/Vol] 20 U/L 10 - 54 U/L [facility] Anion gap [Moles/Vol] 7 mmol/L Low 9 - 18 mmol/L [facility] AST [Catalytic activity/Vol] 19 U/L 14 - 40 U/L [facility] Bilirubin [Mass/Vol] 0.6 mg/dL 0.2 - 1.3 mg/dL [facility] Calcium [Mass/Vol] 9.8 mg/dL 8.5 - 10. 2 mg/dL [facility] Chloride [Moles/Vol] 105 mmol/L 97 - 105 mmol/L [facility] CO2 [Moles/Vol] 24 mmol/L 22 - 30 mmol/L [facility] Creatinine [Mass/Vol] 0.71 mg/dL Low 0.73 - 1.22 mg/dL [facility] Estimated Glomerular Filtration Rate 98 mL/min/1.73m >=60 mL/min/1.73m [facility] Glucose [Mass/Vol] 240 mg/dL High 74 - 99 mg/dL [facility] Potassium [Moles/Vol] 4.6 mmol/L 3.7 - 5.1 mmol/L [facility] Protein [Mass/Vol] 6.5 g/dL 6.3 - 8.0 g/dL [facility] Sodium [Moles/Vol] 136 mmol/L 136 - 144 mmol/L [facility] Urea nitrogen [Mass/Vol] 17 mg/dL 9 - 24 mg/dL [facility] CBC W Auto Differential pane l (Bld)on 04-26-2022 Basophils (Bld) [#/Vol] 0.05 10*3/uL <0.11 k/uL [facility] Basophils/100 WBC (Bld) 0.8 % [facility] Differential cell count method Nom (Bld) Auto [facility] Eosinophils (Bld) [#/Vol] 0.04 10*3/uL <0.46 k/uL [facility] Eosinophils/100 WBC (Bld) 0.6 % [facility] Erythrocyte distribution width (RBC) [Ratio] 15.9 % High 11.5 - 15.0 % [facility] Hematocrit (Bld) [Volume fraction] 26.9 % Low 39.0 - 51.0 % [facility] Hemoglobin (Bld) [Mass/Vol] 8.5 g/dL Low 13.0 - 17.0 g/dL [facility] Immature granulocytes (Bld) [#/Vol] 0.07 10*3/uL <0.10 k/uL [facility] Immature granulocytes/100 WBC (Bld) 1.1 % [facility] Lymphocytes (Bld) [#/Vol] 1.73 10*3/uL 1.00 - 4.00 k/uL [facility] Lymphocytes/100 WBC (Bld) 28.1 % [facility] MCH (RBC) [Entitic mass] 32.2 pg 26.0 - 34.0 pg [facility] MCHC (RBC) [Mass/Vol] 31.6 g/dL 30.5 - 36.0 g/dL [facility] MCV (RBC) [Entitic vol] 101.9 fL High 80.0 - 100.0 fL [facility] Monocytes (Bld) [#/Vol] 0.28 10*3/uL <0.87 k/uL [facility] Monocytes/100 WBC (Bld) 4.5 % [facility] Neutrophils (Bld) [#/Vol] 3.99 10*3/uL 1.45 - 7.50 k/uL [facility] Neutrophils/100 WBC (Bld) 64.9 % [facility] Nucleated RBC (Bld) [#/Vol] <0.01 k/uL [facility] Nucleated RBC/100 WBC (Bld) [Ratio] 0.0 /100 WBC [facility] Platelet mean volume (Bld) [Entitic vol] 9.4 fL 9.0 - 12.7 fL [facility] Platelets (Bld) [#/Vol] 413 10*3/uL High 150 - 400 k/uL [facility] RBC (Bld) [#/Vol] 2.64 10*6/uL Low 4.20 - 6.0 0 m/uL [facility] WBC (Bld) [#/Vol] 6.16 10*3/uL 3.70 - 11. 00 k/uL [facility] Comprehensive metabolic 2000 panelon 04-26-2022 Albumin [Mass/Vol] 4.0 g/dL 3.9 - 4.9 g/dL [facility] ALP [Catalytic activity/Vol] 129 U/L High 38 - 113 U/L [facility] ALT [Catalytic activity/Vol] 31 U/L 10 - 54 U/L [facility] Anion gap [Moles/Vol] 8 mmol/L Low 9 - 18 mmol/L [facility] AST [Catalytic activity/Vol] 29 U/L 14 - 40 U/L [facility] Bilirubin [Mass/Vol] 0.7 mg/dL 0.2 - 1.3 mg/dL [facility] Calcium [Mass/Vol] 10.4 mg/dL High 8.5 - 10. 2 mg/dL [facility] Chloride [Moles/Vol] 103 mmol/L 97 - 105 mmol/L [facility] CO2 [Moles/Vol] 25 mmol/L 22 - 30 mmol/L [facility] Creatinine [Mass/Vol] 0.80 mg/dL 0.73 - 1.22 mg/dL [facility] Estimated Glomerular Filtration Rate 95 mL/min/1.73m >=60 mL/min/1.73m [facility] Glucose [Mass/Vol] 127 mg/dL High 74 - 99 mg/dL [facility] Potassium [Moles/Vol] 4.5 mmol/L 3.7 - 5.1 mmol/L [facility] Protein [Mass/Vol] 6.8 g/dL 6.3 - 8.0 g/dL [facility] Sodium [Moles/Vol] 136 mmol/L 136 - 144 mmol/L [facility] Urea nitrogen [Mass/Vol] 13 mg/dL 9 - 24 mg/dL [facility] CBC W Auto Differential pane l (Bld)on 04-20-2022 Basophils (Bld) [#/Vol] 0.03 10*3/uL <0.11 k/uL [facility] Basophils/100 WBC (Bld) 0.4 % [facility] Differential cell count method Nom (Bld) Auto [facility] Eosinophils (Bld) [#/Vol] 0.10 10*3/uL <0.46 k/uL [facility] Eosinophils/100 WBC (Bld) 1.2 % [facility] Erythrocyte distribution width (RBC) [Ratio] 16.8 % High 11.5 - 15.0 % [facility] Hematocrit (Bld) [Volume fraction] 29.4 % Low 39.0 - 51.0 % [facility] Hemoglobin (Bld) [Mass/Vol] 9.2 g/dL Low 13.0 - 17.0 g/dL [facility] Immature granulocytes (Bld) [#/Vol] 0.05 10*3/uL <0.10 k/uL [facility] Immature granulocytes/100 WBC (Bld) 0.6 % [facility] Lymphocytes (Bld) [#/Vol] 1.46 10*3/uL 1.00 - 4.00 k/uL [facility] Lymphocytes/100 WBC (Bld) 18.0 % [facility] MCH (RBC) [Entitic mass] 32.5 pg 26.0 - 34.0 pg [facility] MCHC (RBC) [Mass/Vol] 31.3 g/dL 30.5 - 36.0 g/dL [facility] MCV (RBC) [Entitic vol] 103.9 fL High 80.0 - 100.0 fL [facility] Monocytes (Bld) [#/Vol] 0.89 10*3/uL High <0.87 k/uL [facility] Monocytes/100 WBC (Bld) 11.0 % [facility] Neutrophils (Bld) [#/Vol] 5.56 10*3/uL 1.45 - 7.50 k/uL [facility] Neutrophils/100 WBC (Bld) 68.8 % [facility] Nucleated RBC (Bld) [#/Vol] <0.01 k/uL [facility] Nucleated RBC/100 WBC (Bld) [Ratio] 0.0 /100 WBC [facility] Platelet mean volume (Bld) [Entitic vol] 9.5 fL 9.0 - 12.7 fL [facility] Platelets (Bld) [#/Vol] 363 10*3/uL 150 - 400 k/uL [facility] RBC (Bld) [#/Vol] 2.83 10*6/uL Low 4.20 - 6.0 0 m/uL [facility] WBC (Bld) [#/Vol] 8.09 10*3/uL 3.70 - 11. 00 k/uL [facility] metabolic 2000 panelon 04-20-2022 Albumin [Mass/Vol] 3.9 g/dL 3.9 - 4.9 g/dL [facility] ALP [Catalytic activity/Vol] 138 U/L High 38 - 113 U/L [facility] ALT [Catalytic activity/Vol] 18 U/L 10 - 54 U/L [facility] Anion gap [Moles/Vol] 8 mmol/L Low 9 - 18 mmol/L [facility] AST [Catalytic activity/Vol] 18 U/L 14 - 40 U/L [facility] Bilirubin [Mass/Vol] 0.7 mg/dL 0.2 - 1.3 mg/dL [facility] Calcium [Mass/Vol] 9.7 mg/dL 8.5 - 10. 2 mg/dL [facility] Chloride [Moles/Vol] 103 mmol/L 97 - 105 mmol/L [facility] CO2 [Moles/Vol] 24 mmol/L 22 - 30 mmol/L [facility] Creatinine [Mass/Vol] 0.73 mg/dL 0.73 - 1.22 mg/dL [facility] Estimated Glomerular Filtration Rate 98 mL/min/1.73m >=60 mL/min/1.73m [facility] Glucose [Mass/Vol] 107 mg/dL High 74 - 99 mg/dL [facility] Potassium [Moles/Vol] 4.8 mmol/L 3.7 - 5.1 mmol/L [facility] Protein [Mass/Vol] 6.6 g/dL 6.3 - 8.0 g/dL [facility] Sodium [Moles/Vol] 135 mmol/L Low 136 - 144 mmol/L [facility] Urea nitrogen [Mass/Vol] 16 mg/dL 9 - 24 mg/dL [facility] metabolic 2000 panelon 04-06-2022 Albumin [Mass/Vol] 4.1 g/dL 3.9 - 4.9 g/dL [facility] ALP [Catalytic activity/Vol] 155 U/L High 38 - 113 U/L [facility] ALT [Catalytic activity/Vol] 38 U/L 10 - 54 U/L [facility] Anion gap [Moles/Vol] 8 mmol/L Low 9 - 18 mmol/L [facility] AST [Catalytic activity/Vol] 32 U/L 14 - 40 U/L [facility] Bilirubin [Mass/Vol] 0.7 mg/dL 0.2 - 1.3 mg/dL [facility] Calcium [Mass/Vol] 9.9 mg/dL 8.5 - 10. 2 mg/dL [facility] Chloride [Moles/Vol] 106 mmol/L High 97 - 105 mmol/L [facility] CO2 [Moles/Vol] 26 mmol/L 22 - 30 mmol/L [facility] [facility] Creatinine [Mass/Vol] 0.74 mg/dL 0.73 - 1.22 mg/dL [facility] Estimated Glomerular Filtration Rate 97 mL/min/1.73m >=60 mL/min/1.73m [facility] Glucose [Mass/Vol] 160 mg/dL High 74 - 99 mg/dL [facility] Potassium [Moles/Vol] 5.0 mmol/L 3.7 - 5.1 mmol/L [facility] Protein [Mass/Vol] 6.8 g/dL 6.3 - 8.0 g/dL [facility] Sodium [Moles/Vol] 140 mmol/L 136 - 144 mmol/L [facility] Urea nitrogen [Mass/Vol] 14 mg/dL 9 - 24 mg/dL [facility] CBC W Auto Differential pane l (Bld)on 03-16-2022 Basophils (Bld) [#/Vol] 0.04 10*3/uL <0.11 k/uL [facility] Basophils/100 WBC (Bld) 1.1 % [facility] Differential cell count method Nom (Bld) Auto [facility] Eosinophils (Bld) [#/Vol] 0.04 10*3/uL <0.46 k/uL [facility] Eosinophils/100 WBC (Bld) 1.1 % [facility] Erythrocyte distribution width (RBC) [Ratio] 14.4 % 11.5 - 15.0 % [facility] Hematocrit (Bld) [Volume fraction] 25.4 % Low 39.0 - 51.0 % [facility] Hemoglobin (Bld) [Mass/Vol] 8.5 g/dL Low 13.0 - 17.0 g/dL [facility] Immature granulocytes (Bld) [#/Vol] <0.10 k/uL [facility] Immature granulocytes/100 WBC (Bld) 0.5 % [facility] Lymphocytes (Bld) [#/Vol] 1.38 10*3/uL 1.00 - 4.00 k/uL [facility] Lymphocytes/100 WBC (Bld) 37.9 % [facility] MCH (RBC) [Entitic mass] 33.7 pg 26.0 - 34.0 pg [facility] MCHC (RBC) [Mass/Vol] 33.5 g/dL 30.5 - 36.0 g/dL [facility] MCV (RBC) [Entitic vol] 100.8 fL High 80.0 - 100.0 fL [facility] Monocytes (Bld) [#/Vol] 0.28 10*3/uL <0.87 k/uL [facility] Monocytes/100 WBC (Bld) 7.7 % [facility] Neutrophils (Bld) [#/Vol] 1.88 10*3/uL 1.45 - 7.50 k/uL [facility] Neutrophils/100 WBC (Bld) 51.7 % [facility] Nucleated RBC (Bld) [#/Vol] <0.01 k/uL [facility] Nucleated RBC/100 WBC (Bld) [Ratio] 0.0 /100 WBC [facility] Platelet mean volume (Bld) [Entitic vol] 10.1 fL 9.0 - 12.7 fL [facility] Platelets (Bld) [#/Vol] 174 10*3/uL 150 - 400 k/uL [facility] RBC (Bld) [#/Vol] 2.52 10*6/uL Low 4.20 - 6.0 0 m/uL [facility] WBC (Bld) [#/Vol] 3.64 10*3/uL Low 3.70 - 11. 00 k/uL [facility] Comprehensive metabolic 2000 panelon 03-16-2022 Albumin [Mass/Vol] 4.0 g/dL 3.9 - 4.9 g/dL [facility] ALP [Catalytic activity/Vol] 153 U/L High 38 - 113 U/L [facility] ALT [Catalytic activity/Vol] 27 U/L 10 - 54 U/L [facility] Anion gap [Moles/Vol] 5 mmol/L Low 9 - 18 mmol/L [facility] AST [Catalytic activity/Vol] 22 U/L 14 - 40 U/L [facility] Bilirubin [Mass/Vol] 1.0 mg/dL 0.2 - 1.3 mg/dL [facility] Calcium [Mass/Vol] 10.0 mg/dL 8.5 - 10. 2 mg/dL [facility] Chloride [Moles/Vol] 103 mmol/L 97 - 105 mmol/L [facility] CO2 [Moles/Vol] 26 mmol/L 22 - 30 mmol/L [facility] Creatinine [Mass/Vol] 0.73 mg/dL 0.73 - 1.22 mg/dL [facility] Estimated Glomerular Filtration Rate 98 mL/min/1.73m >=60 mL/min/1.73m [facility] Glucose [Mass/Vol] 125 mg/dL High 74 - 99 mg/dL [facility] Potassium [Moles/Vol] 4.5 mmol/L 3.7 - 5.1 mmol/L [facility] Protein [Mass/Vol] 6.7 g/dL 6.3 - 8.0 g/dL [facility] Sodium [Moles/Vol] 134 mmol/L Low 136 - 144 mmol/L [facility] Urea nitrogen [Mass/Vol] 16 mg/dL 9 - 24 mg/dL [facility] PSA TOTAL AND %FREEon 2021 % FREE PSA 22 % Normal [facility] Comment on above: Result Comment: INTE RPRETIVE INFORMATION: Prostate Specific Antigen, Free Percentage [facility] uses the Connie Free PSA electrochemiluminescent immunoassay method in conjunction with the Connie PSA electrochemiluminescent immunoassay method to determine the free PSA percentage. Values obtained with different assay methods should not be used interchangeably. The free PSA percentage is an aid in distinguishing prostate cancer from benign prostatic conditions in individuals with a prostate age 50 years and older with a total PSA between 3 and 10 ng/mL and negative digital rectal examination findings. Prostatic biopsy is required for the diagnosis of cancer. In patients with total PSA concentrations of 4-10 ng/mL, the probability of finding prostate cancer on needle biopsy by age in years is: %fPSA 50-59 60-69 70 or older 0 - 10% 49% 58% 65% 11 - 18% 27% 34% 41% 19 - 25% 18% 24% 30% Greater than 25% 9% 12% 16% Other factors may help determine the actual risk of prostate cancer in individual patients. Performed By: [facility] [address] [place] [address] Forensic Dna Analyst: Marnie Diaz MD Performed By: #### P SAFT #### [facility] [address] [facility] [place] [address] PSA,FREE 0.4 ng/mL Normal [facility] Comment on above: Performed By: #### P SAFT #### [facility] [address] [place] [address] PSA,TOTAL 1.8 ng/mL Normal 0.0-4.0 [facility] Comment on above: Result Comment: INTE RPRETIVE INFORMATION: Prostate Specific Antigen The Connie PSA electrochemiluminescent immunoassay is used. Results obtained with different test methods or kits cannot be used interchangeably. The Connie PSA method is approved for use as an aid in the detection of prostate cancer when used in conjunction with a digital rectal exam in individuals with a prostate age 50 years and older. The Connie PSA is also indicated for the serial measurement of PSA to aid in the prognosis and management of prostate cancer patients. Elevated PSA concentrations can only suggest the presence of prostate cancer until biopsy is performed. PSA concentrations can also be elevated in benign prostatic hyperplasia or inflammatory conditions of the prostate. PSA is generally not elevated in healthy individuals or individuals with nonprostatic carcinoma. Performed By: #### P SAFT #### [facility] [address] [facility] [place] [address] RESPIRATORY PANEL PLUSon Adenovirus Not detected Normal NOT DETECTED [facility] Comment on above: Performed By: #### R SPLUS #### [facility] [address] [place] [address] Dr. Karen Carter. Parapertusis Not detected Normal NOT DETECTED [facility] Comment on above: Performed By: #### R SPLUS #### [facility] [address] [place] [address] Dr. Karen Connolly B. Pertussis Not detected Normal NOT DETECTED [facility] Comment on above: Performed By: #### R SPLUS #### [facility] [address] [place] [address] Dr. Karen Connolly Chlamydia Pneumoniae Not detected Normal NOT DETECTED [facility] Comment on above: Performed By: #### R SPLUS #### [facility] [address] [place] [address] Dr. Karen Connolly Coronavirus 229E Not detected Normal NOT DETECTED [facility] Comment on above: Performed By: #### R SPLUS #### [facility] [address] [place] [address] Dr. Karen Connolly Coronavirus HKU1 Not detected Normal NOT DETECTED [facility] Comment on above: Performed By: #### R SPLUS #### [facility] [address] [address] [address] Karen Connolly Coronavirus NL63 Not detected Normal NOT DETECTED [facility] Comment on above: Performed By: #### R SPLUS #### [facility] [address] [place] [address] Dr. Karen Connolly Coronavirus OC43 Not detected Normal NOT DETECTED [facility] Comment on above: Performed By: #### R SPLUS #### [facility] [address] [place] [address] Dr. Karen Connolly Influenza A H1 2009 Not detected Normal NOT DETECTED [facility] Comment on above: Performed By: #### R SPLUS #### [facility] [address] [place] [address] Dr. Karen Connolly Influenza B Not detected Normal NOT DETECTED [facility] Comment on above: Performed By: #### R SPLUS #### [facility] [address] [place] [address] Dr. Karen Connolly Metapneumovirus Not detected Normal NOT DETECTED [facility] Comment on above: Performed By: #### R SPLUS #### [facility] [address] [place] [address] Dr. Karen Connolly Mycoplas. Pneumoniae Not detected Normal NOT DETECTED [facility] Comment on above: Performed By: #### R SPLUS #### [facility] [address] [place] [address] Dr. Karen Connolly Parainfluenza 1 Not detected Normal NOT DETECTED [facility] Comment on above: Performed By: #### R SPLUS #### [facility] [address] [place] [address] Dr. Karen Connolly Parainfluenza 2 Not detected Normal NOT DETECTED [facility] Comment on above: Performed By: #### R SPLUS #### [facility] [address] [place] [address] Dr. Karen Connolly Parainfluenza 3 Not detected Normal NOT DETECTED [facility] Comment on above: Performed By: #### R SPLUS #### [facility] [address] [place] [address] Dr. Karen Connolly Parainfluenza 4 Not detected Normal NOT DETECTED [facility] Comment on above: Performed By: #### R SPLUS #### [facility] [address] [place] [address] Dr. Karen Connolly Rhino/Enterovirus Not detected Normal NOT DETECTED [facility] Comment on above: Performed By: #### R SPLUS #### [facility] [address] [place] [address] Dr. Karen Connolly RP2 Header 1 RESPIRATORY PANEL: VIRUSES Normal [facility] Comment on above: Performed By: #### R SPLUS #### [facility] [address] [place] [address] Dr. Karen Connolly RP2 Header 2 RESPIRATORY PANEL: BACTERIA Normal [facility] Comment on above: Performed By: #### R SPLUS #### [facility] [address] [place] [address] Dr. Karen Connolly RSV Not detected Normal NOT DETECTED [facility] Comment on above: Performed By: #### R SPLUS #### [facility] [address] [place] [address] Dr. Karen Connolly SARS-CoV-2 (COVID-19) RNA MIRTHA+probe Ql (Unsp spec) Detected Critically abnormal NOT DETECTED [facility] Comment on above: Performed By: #### R SPLUS #### [facility] [address] [place] [address] Dr. Karen Connolly [facility] 03-15-2021 [facility] HNO ID: [id number] Author: RT Chauncey(R) Service: ? Author Type: Technologist Type: Allied Health Filed: 03/15/2021 2:37 PM Note Text: Radiology Service Progress Note DATE OF SERVICE: March 15, 2021 TIME: 2:17 PM PATIENT IDENTITY VERIFICATION COMPLETED USING TWO (2) STANDARD IDENTIFIERS: Name and Date of confirmed by patient verbally and Name and Date of confirmed by identification band. FALL SCREENING: Has the patient had 2 falls in the last year or 1 fall with injury or currently using an Ambulatory Assistive Device (Walker, Cane, Wheelchair, Crutches, etc.)? Yes, Patient High Risk for Falls What interventions were put in place to prevent falls during this visit? [place] Risk Wristband Applied, Instructed Patient to Call for Help if Needed, Offered Assistance with Transfers/Clothing, Instructed Patient to Remain Seated (Not on Exam Table) Until Exam, Increased Observations by Caregivers and Patient Refused Interventions/Assistance PATIENT GENDER DATA: Male PATIENT RELEVANT IMPLANT DATA REVIEWED: Yes ALLERGIES: Reviewed and unchanged CONTRAST ALLERGY: NO. EXAM: MRI - CONTRAST TYPE: GROUP II PERIPHERAL IV DATA: Ambulatory: A peripheral IV was started in the Left antecubital site with a Angio cath/Butterfly: 24 gauge. RADIOLOGY DEPARTMENT: MR; Exam(s) Completed: Body: Pancreas/Biliary SIGNATURE: Steph Segura RT, Sheri Leavitt RT(R) PATIENT NAME: Uriel Anderson DATE: March 15, 2021 TIME: 2:17 PM [facility] MRI PANC/SADIE WO/W IVCONon MRI PANC/SADIE WO/W IVCON * * *Final Report* * * DATE OF EXAM: Mar 15 2021 2:55PM [facility] 0730 - MRI PANC/SADIE WO/W IVCON / PROCEDURE REASON: Acute pancreatitis without infection or necrosis, unspecified pancreatitis type * * * * Physician Interpretation * * * * MRI OF THE ABDOMEN WITHOUT AND WITH CONTRAST: CLINICAL HISTORY: History of acute hepatitis with bacteremia, history of pancreatic adenocarcinoma status post Whipple procedure and 12/04/2019 COMPARISON: CT 917, 2020, 12/26/2020, 12/01/2020 TECHNIQUE: The study was performed on a Siemens 3 T TrioTim scanner using the torso phased array coil. HASTE images were obtained in the axial, sagittal and coronal planes. High resolution 3-D T2 weighted images were then obtained. Next, axial STIR, diffusion weighted and T1 weighted in- and [id number]-ic-[id number] images were obtained. Then, using a 3-D GRE T1 weighted sequence, dynamic images were obtained before, during and after the administration of intravenous contrast. 3-D images were post-processed on a dedicated off-line workstation and were reviewed by the interpreting physician. Contrast: IV: 14 ml of Dotarem Oral Contrast: None RESULT: Pancreas: Patient status post Whipple procedure with pancreaticojejunostomy. Dilation of the main pancreatic duct in the neck/body measuring up to 0.7 cm. Biliary: Gallbladder surgically absent. Hepaticojejunostomy. No intrahepatic or extrahepatic ductal dilatation. Liver: The liver is normal in contour. There are no focal hepatic lesions. 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 Posterior branch of the right hepatic lobe is not well seen and may be occluded. Kidneys: The visualized portions of the kidneys enhance symmetrically. There is no hydroureteronephrosis. There is no focal enhancing renal lesion. 1.3 cm cyst in the upper pole of the right kidney. Several left renal cysts measuring up to 6.8 x 4.3 cm (image 26, 4) Other abdominal findings: Ill-defined soft tissue in the ellen hepatis encasing the portal vein and hepatic veins is again seen and difficult to compare to prior CT scan given differences in technique but appears minimally improved. The spleen is normal in size. There are no focal splenic masses. Mild nodular thickening of left adrenal gland. There are no abnormal fluid collections. Lymphadenopathy includin.3 cm left periaortic lymph node (image 40, 4), unchanged. 1.1 cm periportal lymph node (33, 4), unchanged. 1.0 cm periportal lymph node (image 34, 4), unchanged. 1.1 cm aortocaval lymph node (95, 10), unchanged. 1.6 cm ellen hepatic lymph node (image 53, 20),. There is no ascites. Mild distention of loops of small bowel left upper quadrant measuring 3.3 cm (41, 20) IMPRESSION: 1. Patient status post Whipple procedure. 2. Ill-defined soft tissue in the ellen hepatis encasing the portal vein and hepatic arteries, difficult to compare to prior CT scan given differences in technique but appears minimally improved from prior study. Could be sequela of recent pancreatitis although given history of pancreatic cancer, tumor recurrence cannot be entirely excluded. Recommend short-term follow-up with CT scan to confirm resolution. 3. Lymphadenopathy in the upper abdomen is again seen and similar to prior study. Attention on follow-up. 4. 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 Posterior branch of the right portal vein is not seen and may be occluded. Associated perfusion abnormality in the right hepatic lobe. 5. No drainable fluid collections. Chief I Dispatcher: JOSE Transcribe Date/Time: Mar 15 2021 3:29P Dictated by : ALISA ACUNA MD This examination was interpreted and the report reviewed and electronically signed by: ALISA ACUNA MD on Mar 15 2021 4:09PM EST [id number] Normal [facility] CBC AUTO DIFFon 03-11-2021 BASO # 0.0 103/ul Normal 0.0-0.1 [facility] Comment on above: Performed By: #### C BC #### [facility] [address] [place] [address] Dr. Karen Connolly Basophils/100 WBC (Bld) 0.4 % Normal 0.2-2.0 [facility] Comment on above: Performed By: #### C BC #### [facility] [address] [place] [address] Dr. Karen Connolly EO # 0.1 103/ul Normal 0.0-0.7 [facility] Comment on above: Performed By: #### C BC #### [facility] [address] [place] [address] Dr. Karen Connolly Eosinophils/100 WBC (Bld) 1.4 % Normal 0.9-7.0 [facility] Comment on above: Performed By: #### C BC #### [facility] [address] [address] [address] Kaern Connolly Erythrocyte distribution width (RBC) [Ratio] 15.0 % Normal 11.0-15.0 [facility] Comment on above: Performed By: #### C BC #### [facility] [address] [place] [address] Dr. Karen Connolly Hematocrit (Bld) [Volume fraction] 31.7 % Critically low 42.0-54.0 [facility] Comment on above: Performed By: #### C BC #### [facility] [address] [place] [address] Dr. Karen Connolly Hemoglobin (Bld) [Mass/Vol] 10.0 g/dL Critically low 14.0-18.0 [facility] Comment on above: Performed By: #### C BC #### [facility] [address] [place] [address] Dr. Karen Connolly IG # 0.02 10e3/ul Normal 0.00-0.03 [facility] Comment on above: Performed By: #### C BC #### [facility] [address] [place] [address] Dr. Karen Connolly IG % 0.2 % Normal 0.0-0.5 [facility] Comment on above: Performed By: #### C BC #### [facility] [address] [place] [address] Dr. Karen Connolly LYMPH # 2.1 103/ul Normal 1.2-3.8 [facility] Comment on above: Performed By: #### C BC #### [facility] [address] [place] [address] Dr. Karen Connolly Lymphocytes/100 WBC (Bld) 26.3 % Normal 20.5-60.0 [facility] Comment on above: Performed By: #### C BC #### [facility] [address] [place] [address] Dr. Karen Connolly MANUAL DIFF REQ NO Normal [facility] Comment on above: Performed By: #### C BC #### [facility] [address] [place] [address] Dr. Karen Connolly MCH (RBC) [Entitic mass] 30.6 pg Normal 25.9-34.0 [facility] Comment on above: Performed By: #### C BC #### [facility] [address] [place] [address] Dr. Karen Connolly MCHC (RBC) [Mass/Vol] 31.5 g/dL Normal 29.9-35.2 [facility] Comment on above: Performed By: #### C BC #### [facility] [address] [place] [address] Dr. Karen Connolly MCV (RBC) [Entitic vol] 96.9 fL Critically high 80.0-94.0 [facility] Comment on above: Performed By: #### C BC #### [facility] [address] [place] [address] Dr. Karen Connolly MONO # 0.5 103/ul Normal 0.3-0.8 [facility] Comment on above: Performed By: #### C BC #### [facility] [address] [address] [address] Karen Connolly Monocytes/100 WBC (Bld) 6.6 % Normal 1.7-12.0 [facility] Comment on above: Performed By: #### C BC #### [facility] [address] [place] [address] Dr. Karen Connolly NEUT # 5.2 103/ul Normal 1.4-6.5 [facility] Comment on above: Performed By: #### C BC #### [facility] [address] [place] [address] Dr. Karen Connolyl Neutrophils/100 WBC (Bld) 65.1 % Normal 43.0-75.0 [facility] Comment on above: Performed By: #### C BC #### [facility] [address] [place] [address] Dr. Karen Connolly Platelet mean volume (Bld) [Entitic vol] 10.4 fL Normal 9.5-13.5 [facility] Comment on above: Performed By: #### C BC #### [facility] [address] [place] [address] Dr. Karen Connolly PLT 280 103/ul Normal 150-450 [facility] Comment on above: Performed By: #### C BC #### [facility] [address] [place] [address] Dr. Karen Connolly RBC 3.27 106/ul Critically low 4.70-6.10 [facility] Comment on above: Performed By: #### C BC #### [facility] [address] [place] [address] Dr. Karen Connolly WBC 8.0 103/ul Normal 4.0-11.0 [facility] Comment on above: Performed By: #### C BC #### [facility] [address] [place] [address] Dr. Karen Connolly CBC AUTO DIFFon 03-04-2021 BASO # 0.0 103/ul Normal 0.0-0.1 [facility] Comment on above: Performed By: #### C BC #### [facility] [address] [place] [address] Dr. Karen Connolly Basophils/100 WBC (Bld) 0.4 % Normal 0.2-2.0 [facility] Comment on above: Performed By: #### C BC #### [facility] [address] [place] [address] Dr. Karen Connolly EO # 0.1 103/ul Normal 0.0-0.7 [facility] Comment on above: Performed By: #### C BC #### [facility] [address] [place] [address] Dr. Karen Connolly Eosinophils/100 WBC (Bld) 1.2 % Normal 0.9-7.0 [facility] Comment on above: Performed By: #### C BC #### [facility] [address] [place] [address] Dr. Karen Connolly Erythrocyte distribution width (RBC) [Ratio] 15.4 % Critically high 11.0-15.0 [facility] Comment on above: Performed By: #### C BC #### [facility] [address] [place] [address] Dr. Karen Connolly Hematocrit (Bld) [Volume fraction] 29.7 % Critically low 42.0-54.0 [facility] Comment on above: Performed By: #### C BC #### [facility] [address] [place] [address] Dr. Karen Connolly Hemoglobin (Bld) [Mass/Vol] 9.3 g/dL Critically low 14.0-18.0 [facility] Comment on above: Performed By: #### C BC #### [facility] [address] [place] [address] Dr. Karen Connolly IG # 0.01 10e3/ul Normal 0.00-0.03 [facility] Comment on above: Performed By: #### C BC #### [facility] [address] [place] [address] Dr. Karen Connolly IG % 0.2 % Normal 0.0-0.5 [facility] Comment on above: Performed By: #### C BC #### [facility] [address] [place] [address] Dr. Karen Connolly LYMPH # 1.4 103/ul Normal 1.2-3.8 [facility] Comment on above: Performed By: #### C BC #### [facility] [address] [place] [address] Dr. Karen Connolly Lymphocytes/100 WBC (Bld) 24.7 % Normal 20.5-60.0 [facility] Comment on above: Performed By: #### C BC #### [facility] [address] [place] [address] Dr. Karen Connolly MANUAL DIFF REQ NO Normal [facility] Comment on above: Performed By: #### C BC #### [facility] [address] [place] [address] Dr. Karen Connolly MCH (RBC) [Entitic mass] 30.1 pg Normal 25.9-34.0 [facility] Comment on above: Performed By: #### C BC #### [facility] [address] [place] [address] Dr. Karen Connolly MCHC (RBC) [Mass/Vol] 31.3 g/dL Normal 29.9-35.2 [facility] Comment on above: Performed By: #### C BC #### [facility] [address] [place] [address] Dr. Karen Connolly MCV (RBC) [Entitic vol] 96.1 fL Critically high 80.0-94.0 [facility] Comment on above: Performed By: #### C BC #### [facility] [address] [place] [address] Dr. Karen Connolly MONO # 0.6 103/ul Normal 0.3-0.8 [facility] Comment on above: Performed By: #### C BC #### [facility] [address] [place] [address] Dr. Karen Connolly Monocytes/100 WBC (Bld) 10.6 % Normal 1.7-12.0 [facility] Comment on above: Performed By: #### C BC #### [facility] [address] [address] [address] Karen Connolly NEUT # 3.6 103/ul Normal 1.4-6.5 [facility] Comment on above: Performed By: #### C BC #### [facility] [address] [place] [address] Dr. Karen Connolly Neutrophils/100 WBC (Bld) 62.9 % Normal 43.0-75.0 [facility] Comment on above: Performed By: #### C BC #### [facility] [address] [place] [address] Dr. Karen Connolly Platelet mean volume (Bld) [Entitic vol] 10.0 fL Normal 9.5-13.5 [facility] Comment on above: Performed By: #### C BC #### [facility] [address] [place] [address] Dr. Karen Connolly PLT 258 103/ul Normal 150-450 [facility] Comment on above: Performed By: #### C BC #### [facility] [address] [place] [address] Dr. Karen Connolly RBC 3.09 106/ul Critically low 4.70-6.10 [facility] Comment on above: Performed By: #### C BC #### [facility] [address] [place] [address] Dr. Karen Connolly WBC 5.7 103/ul Normal 4.0-11.0 [facility] Comment on above: Performed By: #### C BC #### [facility] [address] [place] [address] Dr. Karen Connolly CBC AUTO DIFFon 02-25-2021 BASO # 0.1 103/ul Normal 0.0-0.1 [facility] Comment on above: Performed By: #### C BC #### [facility] [address] [address] [address] Karen Connolly Basophils/100 WBC (Bld) 0.8 % Normal 0.2-2.0 [facility] Comment on above: Performed By: #### C BC #### [facility] [address] [address] [address] Karen Connolly EO # 0.9 103/ul Critically high 0.0-0.7 [facility] Comment on above: Performed By: #### C BC #### [facility] [address] [address] [address] Karen Connolly Eosinophils/100 WBC (Bld) 9.7 % Critically high 0.9-7.0 [facility] Comment on above: Performed By: #### C BC #### [facility] [address] [place] [address] Dr. Karen Connolly Erythrocyte distribution width (RBC) [Ratio] 15.1 % Critically high 11.0-15.0 [facility] Comment on above: Performed By: #### C BC #### [facility] [address] [place] [address] Dr. Karen Connolly Hematocrit (Bld) [Volume fraction] 29.3 % Critically low 42.0-54.0 [facility] Comment on above: Performed By: #### C BC #### [facility] [address] [place] [address] Dr. Karen Connolly Hemoglobin (Bld) [Mass/Vol] 9.3 g/dL Critically low 14.0-18.0 [facility] Comment on above: Performed By: #### C BC #### [facility] [address] [place] [address] Dr. Karen Connolly IG # 0.02 10e3/ul Normal 0.00-0.03 [facility] Comment on above: Performed By: #### C BC #### [facility] [address] [address] [address] Karen Connolly IG % 0.2 % Normal 0.0-0.5 [facility] Comment on above: Performed By: #### C BC #### [facility] [address] [place] [address] Dr. Karen Connolly LYMPH # 2.2 103/ul Normal 1.2-3.8 [facility] Comment on above: Performed By: #### C BC #### [facility] [address] [place] [address] Dr. Karen Connolly Lymphocytes/100 WBC (Bld) 24.3 % Normal 20.5-60.0 [facility] Comment on above: Performed By: #### C BC #### [facility] [address] [place] [address] Dr. Karen Connolly MANUAL DIFF REQ NO Normal [facility] Comment on above: Performed By: #### C BC #### [facility] [address] [place] [address] Dr. Karen Connolly MCH (RBC) [Entitic mass] 30.7 pg Normal 25.9-34.0 [facility] Comment on above: Performed By: #### C BC #### [facility] [address] [place] [address] Dr. Karen Connolly MCHC (RBC) [Mass/Vol] 31.7 g/dL Normal 29.9-35.2 [facility] Comment on above: Performed By: #### C BC #### [facility] [address] [place] [address] Dr. Karen Connolly MCV (RBC) [Entitic vol] 96.7 fL Critically high 80.0-94.0 [facility] Comment on above: Performed By: #### C BC #### [facility] [address] [place] [address] Dr. Karen Connolly MONO # 0.6 103/ul Normal 0.3-0.8 [facility] Comment on above: Performed By: #### C BC #### [facility] [address] [place] [address] Dr. Karen Connolly Monocytes/100 WBC (Bld) 6.9 % Normal 1.7-12.0 [facility] Comment on above: Performed By: #### C BC #### [facility] [address] [address] [address] Karen Connolly NEUT # 5.3 103/ul Normal 1.4-6.5 [facility] Comment on above: Performed By: #### C BC #### [facility] [address] [address] [address] Karen Connolly Neutrophils/100 WBC (Bld) 58.1 % Normal 43.0-75.0 [facility] Comment on above: Performed By: #### C BC #### [facility] [address] [address] [address] Karen Connolly Platelet mean volume (Bld) [Entitic vol] 9.6 fL Normal 9.5-13.5 [facility] Comment on above: Performed By: #### C BC #### [facility] [address] [place] [address] Dr. Karen Connolly PLT 317 103/ul Normal 150-450 [facility] Comment on above: Performed By: #### C BC #### [facility] [address] [address] [address] Karen Connolly RBC 3.03 106/ul Critically low 4.70-6.10 [facility] Comment on above: Performed By: #### C BC #### [facility] [address] [place] [address] Dr. Karen Connolly WBC 9.0 103/ul Normal 4.0-11.0 [facility] Comment on above: Performed By: #### C BC #### [facility] [address] [place] [address] Dr. Karen Connolly Ambulatory Clinical Summaryo n 08-17-2020 Ambulatory Clinical Summary {[id number]}CD: [id number] Normal [facility] Patient Educationon 08-18-19 21 Patient Education Benign Prostatic Hyperplasia You have an enlarged prostate. This is common in elderly males. It is called BPH. This stands for benign prostate hyperplasia. The prostate gland is located in base of the bladder. When it grows, the prostate blocks the urethra. This is the tube which drains urine from the bladder. SYMPTOMS ? Weak urine stream. ? Dribbling. ? Feeling like the bladder has not emptied completely. ? Difficulty starting urination. ? Getting up frequently at night to urinate. ? Urinating more frequently during the day. Complete urinary blockage or severe pain with urination requires immediate attention. DIAGNOSIS ? Your caregiver often has a good idea what is wrong by taking a history and doing a physical exam. ? Special x-rays may be done. TREATMENT ? For mild problems, no treatment may be necessary. ? If the problems are moderate, medications may provide relief. Some of these work by making the prostate gland smaller. The herb saw palmetto is commonly used. ? If complete blockage occurs, a Wise catheter is usually left in place for a few days. ? Surgery is often needed for more severe problems. TURP is the prostate surgery for BPH which is done through the urethra. TURP stands for transurethral resection of the prostate. It involves cutting away chips from the prostate. It is done by removing chips so that they can come out through the penis. ? Techniques using heat, microwave and laser to remove the prostate blockage are also being used. HOME CARE INSTRUCTIONS ? Give yourself time when you urinate. ? Stay away from alcohol. ? Beverages containing caffeine such as coffee, tea and piyush can make the problems worse. ? Decongestants, antihistamines, and some prescription medicines can also make the problem worse. ? Follow up with your caregiver for further treatment as recommended. SEEK IMMEDIATE MEDICAL CARE IF: ? You develop increased pain with urination or are unable to pass your water. ? You develop severe abdominal pain, vomiting, a high fever, or fainting. ? You develop back pain or blood in your urine. MAKE SURE YOU: ? Understand these instructions. ? Will watch your condition. ? Will get help right away if you are not doing well or get worse. Document Released: 05/08/2006 Document Revised: 07/30/2012 Document Reviewed: 01/11/2008 ExitCare? Patient Information ?2013 [employer] [facility] Urology Office/Clinic Noteon 08-17-2020 Urology Office/Clinic Note HPI Staff Pt is here for a 6 month check up. Finasteride 5mg therapy and Tamsulosin 0.4mg BID, Pt is no longer taking Tamsulosin due to dizziness, Dr. Salinas took him off and Rx Proscar. Pt states he is emptying well. Pt is no longer using the condom catheter at night, he at times has leaking but Sx have improved. Pt has pancreatic Ca. Dysuria: no pain or burning Incomplete bladder emptying: emptying well Hematuria: denies any blood in urine Frequency: 3-5x a day Urgency: mild sx, rare moderate sx Nocturia: 2-3x a night, pt is no longer using the condom catheter at this time Stream: strong stream, mild hesitation, no intermittent stream Post void dripping: rare Wearing pads/ Depends: _ Urge incontinence: intermittent Stress incontinence: none Incontinence without Sensory Awareness: couple times at night Abdominal pain: none History of Present Illness Reviewed UA. There have been no associated fever, chills, flank pain or blood in the urine. Pt. denies any pain/burning with urination at this time. Review of Systems PHQ Score Initial Depression Screen Score: 0 ROS - Provider Constitutional: denies weight loss, denies hot flashes. Eyes: denies eye problems. Gastrointestinal: denies nausea, denies vomiting. Cardiovascular: denies chest pain or angina. Integumentary: no dryness Musculoskeletal: denies musculoskeletal symptoms. ENMT: denies otolaryngeal symptoms. Respiratory: no shortness of breath. Heme/Lymph: denies easy bleeding tendency, denies easy bruising tendency. Psychiatric: no confusion, no anxiety. Genitourinary: denies dysuria, denies hematuria, denies discharge, denies urinary frequency, denies urinary hesitancy, denies nocturia, denies incontinence, denies genital sores, denies decreased libido, and denies erectile dysfunction. Physical Exam Vitals & Measurements HR: 74(Peripheral) RR: 18 BP: 120/71 HT: 172 cm HT: 172.0 cm WT: 107 kg WT: 107.0 kg BMI: 36.17 General Appearance: alert, no distress, well nourished, well developed male. Genitourinary: normal scrotum, normal testes, normal urethra, normal epididymis, normal vas deferens/spermatic cord. Flank Pain: none. Bladder: nonpalpable. Assessment/Plan 1. BPH with urinary obstruction (N40.1: Benign prostatic hyperplasia with lower urinary tract symptoms) Pt. continues taking Finasteride 5mg qd and has d/c Flomax 0.4mg bid due to dizziness. Pt. to continue med. as directed and to call when refills are needed. All questions/concerns were discussed. Pt. to call the office if heencounters any issues prior. Pt. acknowledges understanding. 2. Urinary retention (R33.9: Retention of urine, unspecified) Pt. is no longer using condom cath at this time. 3. Nocturia (R35.1: Nocturia) 2-3x/night. 4. Bladder stones (N21.0: Calculus in bladder) Per pt. seen on previous CT. Will have pt. obtain KUB in 6 months prior to deciding on any procedures. I have reviewed the previous health record information and history for this pt. from Dr. Nevarez. Follow-up With When Contact Information GERI GODWIN, [address] [place] [address]- [phone] Additional Instructions: 6mos. kub Patient Education Benign Prostatic Hyperplasia I, Eufemia Gomes , personally scribed for Dr. Nevarez on 08/17/2020 15:17:45. . Documentation recorded by the scribe, Eufemia Gomes, accurately reflects the services(s) I performed and decisions made by me. Authenticated by Dr. Nevarez on 08/17/2020 15:19:33. Problem List/Past Medical History Ongoing Anticoagulated Bladder stones BMI 35.0-35.9,adult BPH with urinary obstruction Dysuria Pancreatic carcinoma Urinary retention Historical Pancreatic cancer Procedure/Surgical History Cholecystectomy (12/04/2019), Pancreas and jejunum (combined site) (12/04/2019), Whipple operation (12/04/2019). Medications finasteride 5 mg Tab, 5 mg= 1 tab(s), Oral, Daily, 3 refills finasteride 5 mg Tab, 5 mg= 1 tab(s), Oral, Daily, 6 refills Proscar 5 mg Tab, Oral, Daily tamsulosin 0.4 mg Cap, 0.4 mg= 1 cap(s), Oral, BID, 6 refills, Not taking warfarin, Oral, Daily Allergies No Known Medication Allergies Social History Tobacco Former smoker, quit more than 30 days ago Tobacco Use:., 08/17/2020 Former smoker, quit more than 30 days ago Tobacco Use:. Cigarettes, 12/30/2019 Family History Family history is unknown Lab Results Ambulatory Point of Care Results Bilirubin Urine Dipstick: Negative (08/17/20 14:35:00) Blood Urine Dipstick: Negative (08/17/20 14:35:00) Glucose Urine Dipstick: Negative (08/17/20 14:35:00) Ketones Urine Dipstick: Negative (08/17/20 14:35:00) Leukocytes Urine Dipstick: Trace (08/17/20 14:35:00) Nitrite Urine Dipstick: Negative (08/17/20 14:35:00) Protein Urine Dipstick: Negative (08/17/20 14:35:00) Specific Raven Urine Dipstick: 1.025 (08/17/20 14:35:00) Urine Appearan (more content not included)... [facility] Comment on above: Result Comment: Elec tronically Signed By: Billy NEVAREZ MD\.br\Date and Time Signed: 08/17/20 15:19 EDT\.br\Electronically Co-Signed By: Eufemia Gomes MA\.br\Date and Time Co-Signed: 08/17/20 15:18 EDT Lab Reportson 05-06-2020 Lab Reports [id number] [facility] CBC Auto Differentialon 03-23 Basophils (Bld) [#/Vol] 0.04 10*3/uL [place] Basophils/100 WBC (Bld) 1 % 0 - 2 % [place] Differential Type NOT REPORTED [place] Eosinophils (Bld) [#/Vol] 0.05 10*3/uL [place] Eosinophils/100 WBC (Bld) 1 % 1 - 4 % [place] Erythrocyte distribution width (RBC) [Ratio] 19.1 % High 11.8 - 14.4 % [place] Hematocrit (Bld) [Volume fraction] 25.6 % Low 40.7 - 50.3 % [place] Hemoglobin (Bld) [Mass/Vol] 7.7 g/dL Low 13 - 17 g/dL [place] Immature granulocytes (Bld) [#/Vol] 0.05 10*3/uL [place] Immature granulocytes (Bld) [#/Vol] 1 % High 0 [place] Interpretation and review of laboratory results Abnormal [place] Lymphocytes (Bld) [#/Vol] 1.97 10*3/uL [place] Lymphocytes/100 WBC (Bld) 29 % 24 - 43 % [place] MCH (RBC) [Entitic mass] 26.7 pg 25.2 - 33.5 pg [place] MCHC (RBC) [Mass/Vol] 30.1 g/dL 28.4 - 34.8 g/dL [place] MCV (RBC) [Entitic vol] 88.9 fL 82.6 - 102.9 fL [place] Monocytes (Bld) [#/Vol] 0.56 10*3/uL [place] Monocytes/100 WBC (Bld) 8 % 3 - 12 % [place] Platelet mean volume (Bld) [Entitic vol] 8.6 fL 8.1 - 13.5 fL [place] Platelets (Bld) [#/Vol] NOT REPORTED [place] Platelets (Bld) [#/Vol] 474 10*3/uL [place] RBC (Bld) [#/Vol] 2.88 10*6/uL Low 4.21 - 5.7 7 m/uL [place] RBC morphology finding Nom (Bld) NOT REPORTED [place] Segmented neutrophils/100 WBC (Bld) 60 % 36 - 65 % [place] Segs Absolute 4.21 [place] WBC (Bld) [#/Vol] 0.0 10*3/uL 0.0 per 10 0 WBC [place] WBC (Bld) [#/Vol] 6.9 10*3/uL [place] WBC Morphology NOT REPORTED [place] CBC with Diffon 04-15-2020 Abs. Basophil 0.04 k/uL Normal 0.00-0.20 [facility] Comment on above: Performed By: #### C P, CDP #### [facility] [address] [place] [place] [id number] Carton Inspector: Farhad Turner MD Abs.Imm.Granulocyt e 0.05 k/uL Normal 0.00-0.30 [facility] Comment on above: Performed By: #### C P, CDP #### [address] [place] [address] Carton Inspector: Farhad Turner MD Abs.Neutrophil (Seg) 4.21 k/uL Normal 1.50-8.10 [facility] Comment on above: Performed By: #### C P, CDP #### [address] [place] [address] Carton Inspector: Farhad Turner MD Basophils/100 WBC (Bld) 1 % Normal 0-2 [facility] Comment on above: Performed By: #### C P, CDP #### [address] [place], [id number] Carton Inspector: Farhad Turner MD Eosinophils (Bld) [#/Vol] 0.05 10*3/uL Normal 0.00-0.44 [facility] Comment on above: Performed By: #### C P, CDP #### [facility] [address] [place], [id number] Carton Inspector: Farhad Turner MD Eosinophils/100 WBC (Bld) 1 % Normal 1-4 [facility] Comment on above: Performed By: #### C P, CDP #### [facility] [address] [place] [address] Carton Inspector: Farhad Turner MD Erythrocyte distribution width (RBC) [Ratio] 19.1 % High 11.8-14.4 [facility] Comment on above: Performed By: #### C P, CDP #### [facility] [address] [place], [facility] Carton Inspector: Farhad Turner MD Hematocrit (Bld) [Volume fraction] 25.6 % Low 40.7-50.3 [facility] Comment on above: Performed By: #### C P, CDP #### [facility] [address] [place], [place] [address] Carton Inspector: Farhad Turner MD Hemoglobin (Bld) [Mass/Vol] 7.7 g/dL Low 13.0-17.0 [facility] Comment on above: Performed By: #### C P, CDP #### [address], [facility] Carton Inspector: Farhad Turner MD Immature granulocytes (Bld) [#/Vol] 1 % High 0 [facility] Comment on above: Performed By: #### C P, CDP #### [facility] [address], [place] [address] Carton Inspector: Farhad Turner MD Lymphocytes (Bld) [#/Vol] 1.97 10*3/uL Normal 1.10-3.70 [facility] Comment on above: Performed By: #### C P, CDP #### [facility] [address], [place] [address] Carton Inspector: Farhad Turner MD Lymphocytes/100 WBC (Bld) 29 % Normal 24-43 [facility] Comment on above: Performed By: #### C P, CDP #### [facility] [address] [place], [facility] Carton Inspector: Farhad Turner MD MCH (RBC) [Entitic mass] 26.7 pg Normal 25.2-33.5 [facility] Comment on above: Performed By: #### C P, CDP #### [facility] [address] [place], [place] [id number] Carton Inspector: Farhad Turner MD MCHC (RBC) [Mass/Vol] 30.1 g/dL Normal 28.4-34.8 [facility] Comment on above: Performed By: #### C P, CDP #### [facility] [address], [place] [address] Carton Inspector: Farhad Turner MD MCV (RBC) [Entitic vol] 88.9 fL Normal 82.6-102.9 [facility] Comment on above: Performed By: #### C P, CDP #### [facility] [address], [facility] Carton Inspector: Farhad Turner MD Monocytes (Bld) [#/Vol] 0.56 10*3/uL Normal 0.10-1.20 [facility] Comment on above: Performed By: #### C P, CDP #### [facility] [address] [place], [place] [id number] Carton Inspector: Farhad Turner MD Monocytes/100 WBC (Bld) 8 % Normal 3-12 [facility] Comment on above: Performed By: #### C P, CDP #### [facility] [address], [facility] Carton Inspector: Farhad Turner MD Neutrophil (Seg) 60 % Normal 36-65 [facility] Comment on above: Performed By: #### C P, CDP #### [facility] [address], [id number] Carton Inspector: Farhad Turner MD NRBC Automated 0.0 per 100 WBC Normal 0.0 [facility] Comment on above: Performed By: #### C P, CDP #### [facility] [address] [place] [id number] Carton Inspector: Farhad Turner MD Platelet mean volume (Bld) [Entitic vol] 8.6 fL Normal 8.1-13.5 [facility] Comment on above: Performed By: #### C P, CDP #### [facility] [address] [place] [address] Carton Inspector: Farhad Turner MD Platelets (Bld) [#/Vol] 474 10*3/uL High 138-453 [facility] Comment on above: Performed By: #### C P, CDP #### [facility] [address] [place] [address] Carton Inspector: Farhad Turner MD RBC (Bld) [#/Vol] 2.88 10*6/uL Low 4.21-5.77 [facility] Comment on above: Performed By: #### C P, CDP #### [facility] [address] [place], [id number] Carton Inspector: Farhad Turner MD WBC (Bld) [#/Vol] 6.9 10*3/uL Normal 3.5-11.3 [facility] Comment on above: Performed By: #### C P, CDP #### [facility] [address] [place], [place] [address] Carton Inspector: Farhad Turner MD Auto Diff Performed NOT REPORTED Normal [facility] Comment on above: Performed By: #### C P, CDP #### [facility] [address] [place] [address] Carton Inspector: Farhad Turner MD Platelets (Bld) [#/Vol] NOT REPORTED Normal [facility] Comment on above: Performed By: #### C P, CDP #### [facility] [address] [place] [address] Carton Inspector: Farhad Turner MD RBC morphology finding Nom (Bld) NOT REPORTED Normal [facility] Comment on above: Performed By: #### C P, CDP #### [facility] [address] [place], [place] [id number] Carton Inspector: Farhad Turner MD WBC Morphology NOT REPORTED Normal [facility] Comment on above: Performed By: #### C P, CDP #### [facility] [address] [place], [place] [address] Carton Inspector: Farhad Turner MD Comp Metabolic Profon 2019 (cont.) Normal [facility] Comment on above: Result Comment: Aver age GFR for 60-69 years old: 85 mL/min/1.73sq m Chronic Kidney Disease: <60 mL/min/1.73sq m Kidney failure: <15 mL/min/1.73sq m eGFR calculated using average adult body mass. Additional eGFR calculator available at: http://www.Misohoni/multiple_crcl_2012.htm Performed By: #### C P, CDP #### [facility] [address] [place], [place] [id number] Carton Inspector: Farhad Turner MD Albumin [Mass/Vol] 2.0 g/dL Low 3.5-5.2 [facility] Comment on above: Performed By: #### C P, CDP #### [facility] [address] [place], [place] [id number] Carton Inspector: Farhad Turner MD Albumin/Globulin [Mass ratio] 0.5 {ratio} Low 1.0-2.5 [facility] Comment on above: Performed By: #### C P, CDP #### [facility] [address] [place], [place] [id number] Carton Inspector: Farhad Turner MD Alkaline Phos 74 U/L Normal 40-129 [facility] Comment on above: Performed By: #### C P, CDP #### [facility] [address] [place], [place] [id number] Carton Inspector: Farhad Turner MD ALT [Catalytic activity/Vol] 6 U/L Normal 5-41 [facility] Comment on above: Performed By: #### C P, CDP #### [facility] [address] [place], [place] [id number] Carton Inspector: Farhad Turner MD Anion gap [Moles/Vol] 5 mmol/L Low 9-17 [facility] Comment on above: Performed By: #### C P, CDP #### [facility] [address] [place], [place] [id number] Carton Inspector: Farhad Turner MD AST [Catalytic activity/Vol] 12 U/L Normal <40 [facility] Comment on above: Performed By: #### C P, CDP #### [facility] [address] [place], [place] [id number] Carton Inspector: Farhad Turner MD Bilirubin Ql (U) 0.32 mg/dL Normal 0.3-1.2 [facility] Comment on above: Performed By: #### C P, CDP #### [facility] [address] [place], [place] 1886[address] Carton Inspector: Farhad Turner MD BUN/CRE Ratio 21 High 9-20 [facility] Comment on above: Performed By: #### C P, CDP #### [facility] [address] [place], [place] [id number] Carton Inspector: Farhad Turner MD Calcium [Mass/Vol] 9.4 mg/dL Normal 8.6-10.4 [facility] Comment on above: Performed By: #### C P, CDP #### [facility] [address] [place], [place] [id number] Carton Inspector: Farhad Turner MD Chloride [Moles/Vol] 101 mmol/L Normal 98-107 [facility] Comment on above: Performed By: #### C P, CDP #### [facility] [address] [place], [place] [id number] Carton Inspector: Farhad Turner MD CO2 [Moles/Vol] 30 mmol/L Normal 20-31 [facility] Comment on above: Performed By: #### C P, CDP #### [facility] [address] [place], [place] [id number] Carton Inspector: Farhad Turner MD Creatinine [Mass/Vol] 0.28 mg/dL Low 0.70-1.20 [facility] Comment on above: Performed By: #### C P, CDP #### [facility] [address] [place], [place] [id number] Carton Inspector: Farhad Turner MD GFR, Amer >60 Normal >60 [facility] Comment on above: Performed By: #### C P, CDP #### [facility] [address] [place], [place] [address]83 Carton Inspector: Farhad Turner MD GFR,non Amer >60 Normal >60 [facility] Comment on above: Performed By: #### C P, CDP #### [facility] [address] [place], [place] [address]83 Carton Inspector: Farhad Turner MD Glucose [Mass/Vol] 120 mg/dL High 70-99 [facility] Comment on above: Performed By: #### C P, CDP #### [facility] [address] [place], [place] [address]3 Carton Inspector: Farhad Turner MD Potassium [Moles/Vol] 3.3 mmol/L Low 3.7-5.3 [facility] Comment on above: Performed By: #### C P, CDP #### [facility] [address] [place], [place] [id number] Carton Inspector: Farhad Turner MD Protein [Mass/Vol] 5.9 g/dL Low 6.4-8.3 [facility] Comment on above: Performed By: #### C P, CDP #### [facility] [address] [place] [address] Carton Inspector: Farhad Turner MD Sodium [Moles/Vol] 136 mmol/L Normal 135-144 [facility] Comment on above: Performed By: #### C P, CDP #### [facility] [address] [place] [address] Carton Inspector: Farhad Turner MD Staging: Normal [facility] Comment on above: Result Comment: Stag e 1: Some kidney damage normal GFR Stage 2: Mild kidney damage GFR 60-89 Stage 3: Moderate kidney damage GFR 30-59 Stage 4: Severe kidney damage GFR 15-29 Stage 5: Severe kidney damage GFR <15 ESRD - chronic treatment by dialysis or transplant Performed By: #### C P, CDP #### [facility] [address] [place] [address] Carton Inspector: Farhad Turner MD Urea nitrogen [Mass/Vol] 6 mg/dL Low 8-23 [facility] Comment on above: Performed By: #### C P, CDP #### [facility] [address] [place] [address] Carton Inspector: Farhad Turner MD [facility] 04-15-2020 Albumin [Mass/Vol] 2 g/dL Low 3.5 - 5.2 g/dL [place] Albumin/Globulin [Mass ratio] 0.5 {ratio} Low [place] ALP [Catalytic activity/Vol] 74 U/L 40 - 129 U/L [place] ALT [Catalytic activity/Vol] 6 U/L 5 - 41 U/L [place] Anion gap [Moles/Vol] 5 mmol/L Low 9 - 17 mmol/L [place] AST [Catalytic activity/Vol] 12 U/L <40 [place] Bilirubin Ql (U) 0.32 mg/dL 0.3 - 1.2 mg/dL [place] Bun/Cre Ratio 21 High [place] Calcium [Mass/Vol] 9.4 mg/dL 8.6 - 10. 4 mg/dL [place] Chloride [Moles/Vol] 101 mmol/L 98 - 107 mmol/L [place] CO2 [Moles/Vol] 30 mmol/L 20 - 31 mmol/L [place] Creatinine [Mass/Vol] 0.28 mg/dL Low 0.7 - 1.2 mg/dL [place] GFR >60 >60 mL/min [place] GFR Non- >60 >60 mL/min [place] Glucose [Mass/Vol] 120 mg/dL High 70 - 99 mg/dL [place] Interpretation and review of laboratory results Abnormal [place] Potassium [Moles/Vol] 3.3 mmol/L Low 3.7 - 5.3 mmol/L [place] Protein [Mass/Vol] 5.9 g/dL Low 6.4 - 8.3 g/dL [place] Sodium [Moles/Vol] 136 mmol/L 135 - 144 mmol/L [place] Urea nitrogen [Mass/Vol] 6 mg/dL Low 8 - 23 mg/dL [place] Metabolic Panelon 04-15-2020 GFR/1.73 sq M predicted among non-blacks MDRD (S/P/Bld) [Vol rate/Area] [place] Comment on above: Stage 1: Some kidney damage normal GFR Stage 2: Mild kidney damage GFR 60-89 Stage 3: Moderate kidney damage GFR 30-59 Stage 4: Severe kidney damage GFR 15-29 Stage 5: Severe kidney damage GFR <15 ESRD - chronic treatment by dialysis or transplant Average GFR for 60-6 9 years old: 85 mL/min/1.73sq m Chronic Kidney Disease: <60 mL/min/1.73sq m Kidney failure: <15 mL/min/1.73sq m eGFR calculated using average adult body mass. Additional eGFR calculator available at: http://www.Topic.MerchantCircle/multiple_crcl_2012.htm Transfer Inon 04-13-2020 Transfer In [id number]:127 Normal [facility] CBCon 03-16-2020 Erythrocyte distribution width (RBC) [Ratio] 17.3 % High 11.8 - 14.4 % [place] Hematocrit (Bld) [Volume fraction] 30.0 % Low 40.7 - 50.3 % [place] Hemoglobin (Bld) [Mass/Vol] 8.7 g/dL Low 13 - 17 g/dL [place] Interpretation and review of laboratory results Abnormal [place] MCH (RBC) [Entitic mass] 25.1 pg Low 25.2 - 33.5 pg [place] MCHC (RBC) [Mass/Vol] 29.0 g/dL 28.4 - 34.8 g/dL [place] MCV (RBC) [Entitic vol] 86.5 fL 82.6 - 102.9 fL [place] Platelet mean volume (Bld) [Entitic vol] 8.8 fL 8.1 - 13.5 fL [place] Platelets (Bld) [#/Vol] 471 10*3/uL [place] RBC (Bld) [#/Vol] 3.47 10*6/uL Low 4.21 - 5.7 7 m/uL [place] WBC (Bld) [#/Vol] 14.6 10*3/uL [place] WBC (Bld) [#/Vol] 0.0 10*3/uL 0.0 per 10 0 WBC [place] Comprehensive Metabolic Pane franko 03-16-2020 Albumin [Mass/Vol] 2.1 g/dL Low 3.5 - 5.2 g/dL [place] Albumin/Globulin [Mass ratio] 0.5 {ratio} Low [place] ALP [Catalytic activity/Vol] 54 U/L 40 - 129 U/L [place] ALT [Catalytic activity/Vol] U/L Low 5 - 41 U/L [place] Anion gap [Moles/Vol] 9 mmol/L 9 - 17 mmol/L [place] AST [Catalytic activity/Vol] 9 U/L <40 [place] Bilirubin Ql (U) 0.18 mg/dL Low 0.3 - 1.2 mg/dL [place] Bun/Cre Ratio 18 [place] Calcium [Mass/Vol] 9.7 mg/dL 8.6 - 10. 4 mg/dL [place] Chloride [Moles/Vol] 99 mmol/L 98 - 107 mmol/L [place] CO2 [Moles/Vol] 27 mmol/L 20 - 31 mmol/L [place] Creatinine [Mass/Vol] 0.39 mg/dL Low 0.7 - 1.2 mg/dL [place] GFR >60 >60 mL/min [place] GFR Non- >60 >60 mL/min [place] Glucose [Mass/Vol] 98 mg/dL 70 - 99 mg/dL [place] Interpretation and review of laboratory results Abnormal [place] Potassium [Moles/Vol] 3.6 mmol/L Low 3.7 - 5.3 mmol/L [place] Protein [Mass/Vol] 6.3 g/dL Low 6.4 - 8.3 g/dL [place] Sodium [Moles/Vol] 135 mmol/L 135 - 144 mmol/L [place] Urea nitrogen [Mass/Vol] 7 mg/dL Low 8 - 23 mg/dL [place] Metabolic Panelon 03-16-2020 GFR/1.73 sq M predicted among non-blacks MDRD (S/P/Bld) [Vol rate/Area] [place] Comment on above: Average GFR for 60-6 9 years old: 85 mL/min/1.73sq m Chronic Kidney Disease: <60 mL/min/1.73sq m Kidney failure: <15 mL/min/1.73sq m eGFR calculated using average adult body mass. Additional eGFR calculator available at: http://www.Misohoni/multiple_crcl_2012.htm Stage 1: Some kidney damage normal GFR Stage 2: Mild kidney damage GFR 60-89 Stage 3: Moderate kidney damage GFR 30-59 Stage 4: Severe kidney damage GFR 15-29 Stage 5: Severe kidney damage GFR <15 ESRD - chronic treatment by dialysis or transplant Transfer Inon 03-13-2020 Transfer In [id number]:127 Normal [facility] Lab Reportson 03-06-2020 Lab Reports [id number]:127 Normal [facility] Reminderson 03-06-2020 Reminders - From: Rain Cade To: [place] - Clinical; Sent: 03/02/2020 10:47:20 EDT Show up: 03/04/2020 10:47:00 EDT Subject: Urine C&S Due Date/Time: 03/06/2020 10:47:00 EDT Reminder/Recall Urine C&S done [facility] Please review Urine C&S and call pt with results.LG From: Rain Cade ([place] - Clinical) To: GERI GODWIN, Billy R; Sent: 03/06/2020 08:48:22 EDT Show up: 03/06/2020 08:48:00 EDT Subject: RE: Urine C&S Dr. Nevarez reviewed. levaquin 500mg qd #14 proposed. pts was notified. Normal [facility] SURGICAL PATHOLOGYon 020 SURGICAL PATHOLOGY ADDENDUM PRESENT Specimen #: [id number] Submitting Physician: JASON MUÑOZ M.D. FINAL DIAGNOSIS [facility], [place], [place]; [phone] (11/13/2019) Duodenum, postbulbar, biopsy (A1, stains) - Atypical glandular proliferation, suspicious for adenocarcinoma, in a background of ulceration, fibrosis, and necrosis. - Fungal elements present. COMMENT Thank you for allowing us the opportunity to review this case in consultation representing the duodenal postbulbar biopsy from Uriel Anderson, a 69-year-old man who presents with abdominal pain and underwent duodenal postbulbar biopsy. Histologic sections of the duodenal postbulbar biopsy are composed of fragments of fibroinflammatory tissue with necrosis and embedded atypical angulated glands. There is no identifiable intact mucosal surface. The glandular epithelium demonstrates significant cytologic atypia characterized by anisonucleosis, nuclear enlargement, and hyperchromasia. Multiple superficial strips of epithelium with cytologic atypia are also present. Provided immunohistochemical stain for AE1/3 highlights the atypical glands, and provided GMS stain demonstrates fungal organisms within the necroinflammatory debris. Overall, the histological features of the duodenal biopsy are most in keeping with atypical glandular proliferation in a fibroinflammatory background with necrosis and fungal organisms. While the findings are suspicious for adenocarcinoma, tissue fragmentation and crush artifact, along with the extensive inflammatory changes preclude definitive diagnosis of adenocarcinoma. Additional biopsy and correlation with clinical, endoscopic, and radiologic findings may be helpful. Thank you for sending this case in consultation. Please do not hesitate to contact the GI Consultation Service at [phone] with questions or if additional follow up information becomes available. This case was reviewed in conjunction with the GI pathology fellow, Rajan Bain M.D., Ph.D. /HYL//11-19-2019 Walter De Luna M.D., Ph.D. (Electronic Signature) SPECIMEN SUBMITTED A: 6 SLIDES [id number] ADDENDUM Date Ordered: 11/19/2019 Date Reported: 11/19/2019 This case has also been reviewed in consultation with Dr. Halie Cartwright, who concurs with the diagnosis. Addendum Pathologist: Walter De Luna M.D., Ph.D. Electronic Signature CLINICAL DATA Abdominal pain. Patient ID #: Date of Report: 11/19/2019 Date of Procedure: 11/18/2019 Date of Receipt: 11/18/2019 Submitted by: JASON MUÑOZ M.D. Location: Diagnostic interpretation performed at [facility], [address] [place] [address]. CLIA Number: [id number] Normal [facility] Reference Lab Comment on above: Performed By: #### S #### See report for performing lab information. Vital Signs Date Time Vital Sign Value Performing Clinician Facility 10-13-2023 11:35-0400 Body temperature 97.59 [degF] [employer] Work Phone: [facility] 10-13-2023 11:35-0400 Diastolic blood pressure 71 mm[Hg] [employer] [facility] Work Phone: [facility] 10-13-2023 11:35-0400 Heart rate 83 /min [facility] [employer] Work Phone: [facility] 10-13-2023 11:35-0400 Respiratory rate 16 /min [facility] [employer] Work Phone: [facility] 10-13-2023 11:35-0400 SaO2% (BldA) [Mass fraction] 100 % [employer] Work Phone: [facility] 10-13-2023 11:35-0400 Systolic blood pressure 107 mm[Hg] [employer] Work Phone: [facility] 10-11-2023 10:02-0400 Diastolic blood pressure 67 mm[Hg] [facility] [employer] Work Phone: [facility] Comment on above: Rechecked in tx room 10-11-2023 10:02-0400 Systolic blood pressure 100 mm[Hg] Chair Danny Work Phone: [facility] Comment on above: Rechecked in tx room 10-11-2023 09:27-0400 Body height 169.7 cm Greta Rashard PA-C Work Phone: [facility] 10-11-2023 09:27-0400 Body mass index (BMI) [Ratio] 24.48 kg/m2 Greta Rashard PA-C Work Phone: [facility] 10-11-2023 09:27-0400 Body temperature 98.01 [degF] Greta Rashard PA-C Work Phone: [facility] 10-11-2023 09:27-0400 Body weight 70.5 kg Greta Rashard PA-C Work Phone: [facility] 10-11-2023 09:27-0400 Diastolic blood pressure 56 mm[Hg] Greta Rashard PA-C Work Phone: [facility] 10-11-2023 09:27-0400 Heart rate 87 /min Greta Rashard PA-C Work Phone: [facility] 10-11-2023 09:27-0400 Respiratory rate 16 /min Greta Rashard PA-C Work Phone: [facility] 10-11-2023 09:27-0400 SaO2% (BldA) [Mass fraction] 100 % Greta Rashard PA-C Work Phone: [facility] 10-11-2023 09:27-0400 Systolic blood pressure 85 mm[Hg] Greta Rashard PA-C Work Phone: [facility] 10-03-2023 11:15-0400 Body height 169.7 cm Greta Rashard PA-C Work Phone: [facility] 10-03-2023 11:15-0400 Body mass index (BMI) [Ratio] 25.56 kg/m2 Greta Rashard PA-C Work Phone: [facility] 10-03-2023 11:15-0400 Body temperature 97.5 [degF] Greta Rashard PA-C Work Phone: [facility] 10-03-2023 11:15-0400 Body weight 73.6 kg Greta Rashard PA-C Work Phone: [facility] 10-03-2023 11:15-0400 Diastolic blood pressure 53 mm[Hg] Greta Rashard PA-C Work Phone: [facility] 10-03-2023 11:15-0400 Heart rate 81 /min Greta Rashard PA-C Work Phone: [facility] 10-03-2023 11:15-0400 Respiratory rate 16 /min Greta Rashard PA-C Work Phone: [facility] 10-03-2023 11:15-0400 SaO2% (BldA) [Mass fraction] 98 % Greta Rashard PA-C Work Phone: [facility] 10-03-2023 11:15-0400 Systolic blood pressure 83 mm[Hg] Greta Rashard PA-C Work Phone: [facility] 09-15-2023 13:05-0400 Body temperature 97.9 [degF] Chair [place] Work Phone: [facility] 09-15-2023 13:05-0400 Diastolic blood pressure 68 mm[Hg] Chair [place] Work Phone: [facility] 09-15-2023 13:05-0400 Heart rate 77 /min Chair [place] Work Phone: [facility] 09-15-2023 13:05-0400 Respiratory rate 18 /min Chair [place] Work Phone: [facility] 09-15-2023 13:05-0400 SaO2% (BldA) [Mass fraction] 98 % Chair [place] Work Phone: [facility] 09-15-2023 13:05-0400 Systolic blood pressure 114 mm[Hg] Chair Delgado Work Phone: [facility] 09-13-2023 11:29-0400 Body height 169.7 cm Yordy Moncada APRN.EDUCATION LIAISON Work Phone: [facility] 09-13-2023 11:29-0400 Body mass index (BMI) [Ratio] 24.76 kg/m2 Yordy Moncada APRN.EDUCATION LIAISON Work Phone: [facility] 09-13-2023 11:29-0400 Body temperature 97.59 [degF] Yordy Moncada APRN.EDUCATION LIAISON Work Phone: [facility] 09-13-2023 11:29-0400 Body weight 71.3 kg Yordy Moncada APRN.EDUCATION LIAISON Work Phone: [facility] 09-13-2023 11:29-0400 Diastolic blood pressure 63 mm[Hg] Yordy Moncada APRN.EDUCATION LIAISON Work Phone: [facility] 09-13-2023 11:29-0400 Heart rate 75 /min Yordy Moncada APRN.EDUCATION LIAISON Work Phone: [facility] 09-13-2023 11:29-0400 Respiratory rate 16 /min Yordy Moncada APRN.EDUCATION LIAISON Work Phone: [facility] 09-13-2023 11:29-0400 SaO2% (BldA) [Mass fraction] 99 % Yordy Moncada APRN.EDUCATION LIAISON Work Phone: [facility] 09-13-2023 11:29-0400 Systolic blood pressure 106 mm[Hg] Yordy Moncada APRN.EDUCATION LIAISON Work Phone: [facility] 08-23-2023 10:36-0400 Body height 169.7 cm Grace Bses MD Work Phone: [facility] 08-23-2023 10:36-0400 Body temperature 97.59 [degF] Grace Bess MD Work Phone: [facility] 08-23-2023 10:36-0400 Body weight 72.5 kg Grace Bess MD Work Phone: [facility] 08-23-2023 10:36-0400 Diastolic blood pressure 72 mm[Hg] Grace Bess MD Work Phone: [facility] 08-23-2023 10:36-0400 Heart rate 88 /min Grace Bess MD Work Phone: [facility] 08-23-2023 10:36-0400 Respiratory rate 16 /min Grace Bess MD Work Phone: [facility] 08-23-2023 10:36-0400 SaO2% (BldA) [Mass fraction] 98 % Grace Bess MD Work Phone: [facility] 08-23-2023 10:36-0400 Systolic blood pressure 108 mm[Hg] Grace Bess MD Work Phone: [facility] 08-04-2023 12:40-0400 Body temperature 97.5 [degF] Chair [place] Work Phone: [facility] 08-04-2023 12:40-0400 Diastolic blood pressure 64 mm[Hg] Chair [place] Work Phone: [facility] 08-04-2023 12:40-0400 Heart rate 82 /min Chair Danny Work Phone: [facility] 08-04-2023 12:40-0400 Respiratory rate 16 /min Chair Danny Work Phone: [facility] 08-04-2023 12:40-0400 SaO2% (BldA) [Mass fraction] 98 % Chair Danny Work Phone: [facility] 08-04-2023 12:40-0400 Systolic blood pressure 95 mm[Hg] Chair Danny Work Phone: [facility] 08-02-2023 10:32-0400 Body height 169.7 cm Grace Bess MD Work Phone: [facility] 08-02-2023 10:32-0400 Body temperature 97.5 [degF] Grace Bess MD Work Phone: [facility] 08-02-2023 10:32-0400 Body weight 71.2 kg Grace Bess MD Work Phone: [facility] 08-02-2023 10:32-0400 Diastolic blood pressure 68 mm[Hg] Grace Bess MD Work Phone: [facility] 08-02-2023 10:32-0400 Heart rate 85 /min Grace Bess MD Work Phone: [facility] 08-02-2023 10:32-0400 Respiratory rate 16 /min Grace Bess MD Work Phone: [facility] 08-02-2023 10:32-0400 SaO2% (BldA) [Mass fraction] 100 % Grace Bess MD Work Phone: [facility] 08-02-2023 10:32-0400 Systolic blood pressure 96 mm[Hg] Grace Bess MD Work Phone: [facility] 07-21-2023 11:57-0500 Body temperature 98.1 [degF] Chair Danny Work Phone: [facility] 07-21-2023 11:57-0500 Diastolic blood pressure 65 mm[Hg] Chair [place] Work Phone: [facility] 07-21-2023 11:57-0500 Heart rate 78 /min Chair Danny Work Phone: [facility] 07-21-2023 11:57-0500 Respiratory rate 18 /min Chair Danny Work Phone: [facility] 07-21-2023 11:57-0500 SaO2% (BldA) [Mass fraction] 100 % Chair [place] Work Phone: [facility] 07-21-2023 11:57-0500 Systolic blood pressure 96 mm[Hg] Chair [place] Work Phone: [facility] 07-19-2023 10:14-0500 Body height 169.7 cm Yordy Moncada APARTMENT HOUSE MANAGER.EDUCATION LIAISON Work Phone: [facility] 07-19-2023 10:14-0500 Body temperature 97.59 [degF] Yordy Moncada APARTMENT HOUSE MANAGER.EDUCATION LIAISON Work Phone: [facility] 07-19-2023 10:14-0500 Body weight 71.5 kg Yordy Moncada APARTMENT HOUSE MANAGER.EDUCATION LIAISON Work Phone: [facility] 07-19-2023 10:14-0500 Diastolic blood pressure 58 mm[Hg] Yordy Moncada APARTMENT HOUSE MANAGER.EDUCATION LIAISON Work Phone: [facility] 07-19-2023 10:14-0500 Heart rate 67 /min Yordy Moncada APARTMENT HOUSE MANAGER.EDUCATION LIAISON Work Phone: [facility] 07-19-2023 10:14-0500 Respiratory rate 16 /min Yordy Moncada APRN.EDUCATION LIAISON Work Phone: [facility] 07-19-2023 10:14-0500 SaO2% (BldA) [Mass fraction] 99 % Yordy Moncada APARTMENT HOUSE MANAGER.EDUCATION LIAISON Work Phone: [facility] 07-19-2023 10:14-0500 Systolic blood pressure 100 mm[Hg] Yordy Moncada APARTMENT HOUSE MANAGER.EDUCATION LIAISON Work Phone: [facility] 07-07-2023 12:40-0500 Body temperature 97.7 [degF] Chair Danny Work Phone: [facility] 07-07-2023 12:40-0500 Diastolic blood pressure 69 mm[Hg] Chair [place] Work Phone: [facility] 07-07-2023 12:40-0500 Heart rate 75 /min Chair [place] Work Phone: [facility] 07-07-2023 12:40-0500 Respiratory rate 18 /min Chair [place] Work Phone: [facility] 07-07-2023 12:40-0500 SaO2% (BldA) [Mass fraction] 98 % Chair [place] Work Phone: [facility] 07-07-2023 12:40-0500 Systolic blood pressure 103 mm[Hg] Chair Danny Work Phone: [facility] 07-05-2023 10:46-0500 Body height 169.7 cm Yordy Moncada APRN.EDUCATION LIAISON Work Phone: [facility] 07-05-2023 10:46-0500 Body temperature 97 [degF] Yordy Moncada APRN.EDUCATION LIAISON Work Phone: [facility] 07-05-2023 10:46-0500 Body weight 72.3 kg Yordy Moncada APRN.EDUCATION LIAISON Work Phone: [facility] 07-05-2023 10:46-0500 Diastolic blood pressure 68 mm[Hg] Yordy Moncada APRN.EDUCATION LIAISON Work Phone: [facility] 07-05-2023 10:46-0500 Heart rate 92 /min Yordy Moncada APRN.EDUCATION LIAISON Work Phone: [facility] 07-05-2023 10:46-0500 Respiratory rate 16 /min Yordy Moncada APRN.EDUCATION LIAISON Work Phone: [facility] 07-05-2023 10:46-0500 SaO2% (BldA) [Mass fraction] 97 % Yordy Moncada APRN.EDUCATION LIAISON Work Phone: [facility] 07-05-2023 10:46-0500 Systolic blood pressure 96 mm[Hg] Yordy Moncada APRN.EDUCATION LIAISON Work Phone: [facility] 06-23-2023 10:28-0500 Body temperature 97.7 [degF] Chair Danny Work Phone: [facility] 06-23-2023 10:28-0500 Diastolic blood pressure 76 mm[Hg] Chair [place] Work Phone: [facility] 06-23-2023 10:28-0500 Heart rate 83 /min Chair Danny Work Phone: [facility] 06-23-2023 10:28-0500 Respiratory rate 16 /min Chair Danny Work Phone: [facility] 06-23-2023 10:28-0500 SaO2% (BldA) [Mass fraction] 100 % Chair [place] Work Phone: [facility] 06-23-2023 10:28-0500 Systolic blood pressure 117 mm[Hg] Chair Danny Work Phone: [facility] 05-05-2023 12:59-0500 Body height 171.4 cm Grace Bess MD Work Phone: [facility] 05-05-2023 12:59-0500 Body temperature 97 [degF] Grace Bess MD Work Phone: [facility] 05-05-2023 12:59-0500 Body weight 73.9 kg Grace Bess MD Work Phone: [facility] 05-05-2023 12:59-0500 Diastolic blood pressure 80 mm[Hg] Grace Bess MD Work Phone: [facility] 05-05-2023 12:59-0500 Heart rate 90 /min Grace Bess MD Work Phone: [facility] 05-05-2023 12:59-0500 Respiratory rate 20 /min Grace Bess MD Work Phone: [facility] 05-05-2023 12:59-0500 SaO2% (BldA) [Mass fraction] 100 % Grace Bess MD Work Phone: [facility] 05-05-2023 12:59-0500 Systolic blood pressure 137 mm[Hg] Grace Bess MD Work Phone: [facility] 04-05-2023 13:49-0500 Body height 171.4 cm Yordy Moncada APRN.EDUCATION LIAISON Work Phone: [facility] 04-05-2023 13:49-0500 Body temperature 97.59 [degF] Yordy Moncada APRN.EDUCATION LIAISON Work Phone: [facility] 04-05-2023 13:49-0500 Body weight 77.84 kg Yordy Moncada APRN.EDUCATION LIAISON Work Phone: [facility] 04-05-2023 13:49-0500 Diastolic blood pressure 69 mm[Hg] Yordy Moncada APRN.EDUCATION LIAISON Work Phone: [facility] 04-05-2023 13:49-0500 Heart rate 88 /min Yordy Moncada APRN.EDUCATION LIAISON Work Phone: [facility] 04-05-2023 13:49-0500 Respiratory rate 16 /min Yordy Moncada APRN.EDUCATION LIAISON Work Phone: [facility] 04-05-2023 13:49-0500 SaO2% (BldA) [Mass fraction] 99 % Yordy Moncada APRN.EDUCATION LIAISON Work Phone: [facility] 04-05-2023 13:49-0500 Systolic blood pressure 100 mm[Hg] Yordy Moncada APRN.EDUCATION LIAISON Work Phone: [facility] 03-30-2023 13:19-0500 Diastolic blood pressure 67 mm[Hg] Greta Cardenaser PA-C Work Phone: [facility] 03-30-2023 13:19-0500 Systolic blood pressure 116 mm[Hg] Greta Rashard PA-C Work Phone: [facility] 03-30-2023 13:15-0500 Body height 171.4 cm Greta Cardenaser PA-C Work Phone: [facility] 03-30-2023 13:15-0500 Body temperature 97.59 [degF] Greta Rashard PA-C Work Phone: [facility] 03-30-2023 13:15-0500 Body weight 77.2 kg Greta Rashard PA-C Work Phone: [facility] 03-30-2023 13:15-0500 Heart rate 90 /min Greta Rashard PA-C Work Phone: [facility] 03-30-2023 13:15-0500 Respiratory rate 16 /min Greta Rashard PA-C Work Phone: [facility] 03-30-2023 13:15-0500 SaO2% (BldA) [Mass fraction] 99 % Greta Rashard PA-C Work Phone: [facility] 03-08-2023 13:32-0400 Body height 171.4 cm Grace Bess MD Work Phone: [facility] 03-08-2023 13:32-0400 Body temperature 97.59 [degF] Grace Bess MD Work Phone: [facility] 03-08-2023 13:32-0400 Body weight 78.02 kg Grace Bess MD Work Phone: [facility] 03-08-2023 13:32-0400 Diastolic blood pressure 71 mm[Hg] Grace Bess MD Work Phone: [facility] 03-08-2023 13:32-0400 Heart rate 90 /min Grace Bess MD Work Phone: [facility] 03-08-2023 13:32-0400 Respiratory rate 16 /min Grace Bess MD Work Phone: [facility] 03-08-2023 13:32-0400 SaO2% (BldA) [Mass fraction] 100 % Grace Bess MD Work Phone: [facility] 03-08-2023 13:32-0400 Systolic blood pressure 104 mm[Hg] Grace Bess MD Work Phone: [facility] 02-08-2023 12:46-0400 Body height 171.4 cm Yordy Moncada APARTMENT HOUSE MANAGER.EDUCATION LIAISON Work Phone: [facility] 02-08-2023 12:46-0400 Body temperature 97.5 [degF] Yordy Moncada APARTMENT HOUSE MANAGER.EDUCATION LIAISON Work Phone: [facility] 02-08-2023 12:46-0400 Body weight 81.1 kg Yordy Moncada APARTMENT HOUSE MANAGER.EDUCATION LIAISON Work Phone: [facility] 02-08-2023 12:46-0400 Diastolic blood pressure 63 mm[Hg] Yordy Moncada APARTMENT HOUSE MANAGER.EDUCATION LIAISON Work Phone: [facility] 02-08-2023 12:46-0400 Heart rate 86 /min Yordy Moncada APARTMENT HOUSE MANAGER.EDUCATION LIAISON Work Phone: [facility] 02-08-2023 12:46-0400 Respiratory rate 16 /min Yordy Moncada APARTMENT HOUSE MANAGER.EDUCATION LIAISON Work Phone: [facility] 02-08-2023 12:46-0400 SaO2% (BldA) [Mass fraction] 100 % Yordy Moncada APARTMENT HOUSE MANAGER.EDUCATION LIAISON Work Phone: [facility] 02-08-2023 12:46-0400 Systolic blood pressure 117 mm[Hg] Yordy Moncada APARTMENT HOUSE MANAGER.EDUCATION LIAISON Work Phone: [facility] 02-01-2023 11:16-0400 Body height 171.4 cm Grace Bess MD Work Phone: [facility] 02-01-2023 11:16-0400 Body temperature 97.3 [degF] Grace Bess MD Work Phone: [facility] 02-01-2023 11:16-0400 Body weight 79.74 kg Grace Bess MD Work Phone: [facility] 02-01-2023 11:16-0400 Diastolic blood pressure 70 mm[Hg] Grace Bess MD Work Phone: [facility] 02-01-2023 11:16-0400 Heart rate 81 /min Grace Bess MD Work Phone: [facility] 02-01-2023 11:16-0400 Respiratory rate 16 /min Grace Bess MD Work Phone: [facility] 02-01-2023 11:16-0400 SaO2% (BldA) [Mass fraction] 99 % Grace Bess MD Work Phone: [facility] 02-01-2023 11:16-0400 Systolic blood pressure 104 mm[Hg] Grace Bess MD Work Phone: [facility] 01-04-2023 13:00-0400 Body height 171.4 cm Grace Bess MD Work Phone: [facility] 01-04-2023 13:00-0400 Body temperature 97.2 [degF] Grace Bess MD Work Phone: [facility] 01-04-2023 13:00-0400 Body weight 82.74 kg Grace Bess MD Work Phone: [facility] 01-04-2023 13:00-0400 Diastolic blood pressure 63 mm[Hg] Grace Bess MD Work Phone: [facility] 01-04-2023 13:00-0400 Heart rate 78 /min Grace Bess MD Work Phone: [facility] 01-04-2023 13:00-0400 Respiratory rate 18 /min Grace Bess MD Work Phone: [facility] 01-04-2023 13:00-0400 SaO2% (BldA) [Mass fraction] 100 % Grace Bess MD Work Phone: [facility] 01-04-2023 13:00-0400 Systolic blood pressure 104 mm[Hg] Grace Bess MD Work Phone: [facility] 12-21-2022 09:40-0400 Body height 171.4 cm Greta Rashard PA-C Work Phone: [facility] 12-21-2022 09:40-0400 Body temperature 97.11 [degF] Greta Rashard PA-C Work Phone: [facility] 12-21-2022 09:40-0400 Body weight 82.64 kg Greta Rashard PA-C Work Phone: [facility] 12-21-2022 09:40-0400 Diastolic blood pressure 68 mm[Hg] Greta Rashard PA-C Work Phone: [facility] 12-21-2022 09:40-0400 Heart rate 94 /min Greta Rashard PA-C Work Phone: [facility] 12-21-2022 09:40-0400 Respiratory rate 20 /min Greta Rashard PA-C Work Phone: [facility] 12-21-2022 09:40-0400 SaO2% (BldA) [Mass fraction] 100 % Greta Rashard PA-C Work Phone: [facility] 12-21-2022 09:40-0400 Systolic blood pressure 103 mm[Hg] Greta Rashard PA-C Work Phone: [facility] 12-15-2022 16:25-0400 Diastolic blood pressure 74 mm[Hg] II Giovannialf Salinas Work Phone: [facility] 12-15-2022 16:25-0400 Heart rate 67 /min II Giovanni Salinas Work Phone: [facility] 12-15-2022 16:25-0400 Respiratory rate 18 /min II Giovanni Salinas Work Phone: [facility] 12-15-2022 16:25-0400 SaO2% (BldA) [Mass fraction] 100 % II Giovanni Salinas Work Phone: [facility] 12-15-2022 16:25-0400 Systolic blood pressure 105 mm[Hg] II Giovanni Salinas Work Phone: [facility] 12-15-2022 15:19-0400 Body height 170.18 cm II Giovanni Salinas Work Phone: [facility] 12-15-2022 15:19-0400 Body temperature 97.5 [degF] II Giovanni Salinas Work Phone: [facility] 12-15-2022 15:19-0400 Body weight 85.9 kg II Giovanni Salinas Work Phone: [facility] 12-05-2022 11:14-0400 Body height 171.4 cm Greta Rashard PA-C Work Phone: [facility] 12-05-2022 11:14-0400 Body temperature 97 [degF] Greta Rashard PA-C Work Phone: [facility] 12-05-2022 11:14-0400 Body weight 83.55 kg Greta Rahsard PA-C Work Phone: [facility] 12-05-2022 11:14-0400 Diastolic blood pressure 51 mm[Hg] Greta Rashard PA-C Work Phone: [facility] 12-05-2022 11:14-0400 Heart rate 97 /min Greta Rashard PA-C Work Phone: [facility] 12-05-2022 11:14-0400 Respiratory rate 16 /min Greta Rashard PA-C Work Phone: [facility] 12-05-2022 11:14-0400 SaO2% (BldA) [Mass fraction] 100 % Greta Rashard PA-C Work Phone: [facility] 12-05-2022 11:14-0400 Systolic blood pressure 97 mm[Hg] Greta Rashard PA-C Work Phone: [facility] 11-30-2022 10:33-0400 Body height 171.4 cm Grace Bess MD Work Phone: [facility] 11-30-2022 10:33-0400 Body temperature 96.69 [degF] Grace Bess MD Work Phone: [facility] 11-30-2022 10:33-0400 Body weight 83.92 kg Grace Bess MD Work Phone: [facility] 11-30-2022 10:33-0400 Diastolic blood pressure 67 mm[Hg] Grace Bess MD Work Phone: [facility] 11-30-2022 10:33-0400 Heart rate 68 /min Grace Bess MD Work Phone: [facility] 11-30-2022 10:33-0400 Respiratory rate 16 /min Grace Bess MD Work Phone: [facility] 11-30-2022 10:33-0400 SaO2% (BldA) [Mass fraction] 98 % Grace Bess MD Work Phone: [facility] 11-30-2022 10:33-0400 Systolic blood pressure 117 mm[Hg] Grace Bess MD Work Phone: [facility] 11-23-2022 13:45-0400 Body height 169.8 cm Greta Rashard PA-C Work Phone: [facility] 11-23-2022 13:45-0400 Body temperature 97.3 [degF] Greta Rashard PA-C Work Phone: [facility] 11-23-2022 13:45-0400 Body weight 83.64 kg Greta Rashard PA-C Work Phone: [facility] 11-23-2022 13:45-0400 Diastolic blood pressure 64 mm[Hg] Greta Rashard PA-C Work Phone: [facility] 11-23-2022 13:45-0400 Heart rate 92 /min Greta Rashard PA-C Work Phone: [facility] 11-23-2022 13:45-0400 Respiratory rate 16 /min Greta Rashard PA-C Work Phone: [facility] 11-23-2022 13:45-0400 SaO2% (BldA) [Mass fraction] 100 % Greta Rashard PA-C Work Phone: [facility] 11-23-2022 13:45-0400 Systolic blood pressure 106 mm[Hg] Greta Rashard PA-C Work Phone: [facility] 11-10-2022 09:41-0400 Body height 169.8 cm Grace Bess MD Work Phone: [facility] 11-10-2022 09:41-0400 Body temperature 97.3 [degF] Grace Bess MD Work Phone: [facility] 11-10-2022 09:41-0400 Body weight 82.64 kg Grace Bess MD Work Phone: [facility] 11-10-2022 09:41-0400 Diastolic blood pressure 77 mm[Hg] Grace Bess MD Work Phone: [facility] 11-10-2022 09:41-0400 Heart rate 80 /min Grace Bess MD Work Phone: [facility] 11-10-2022 09:41-0400 Respiratory rate 16 /min Grace Bess MD Work Phone: [facility] 11-10-2022 09:41-0400 SaO2% (BldA) [Mass fraction] 99 % Grace Bess MD Work Phone: [facility] 11-10-2022 09:41-0400 Systolic blood pressure 110 mm[Hg] Grace Bess MD Work Phone: [facility] 09-29-2022 10:19-0400 Body height 169.8 cm Grace Bess MD Work Phone: [facility] 09-29-2022 10:19-0400 Body temperature 97.59 [degF] Grace Bess MD Work Phone: [facility] 09-29-2022 10:19-0400 Body weight 90.27 kg Grace Bess MD Work Phone: [facility] 09-29-2022 10:19-0400 Diastolic blood pressure 74 mm[Hg] Grace Bess MD Work Phone: [facility] 09-29-2022 10:19-0400 Heart rate 69 /min Grace Bess MD Work Phone: [facility] 09-29-2022 10:19-0400 Respiratory rate 16 /min Grace Bess MD Work Phone: [facility] 09-29-2022 10:19-0400 SaO2% (BldA) [Mass fraction] 97 % Grace Bess MD Work Phone: [facility] 09-29-2022 10:19-0400 Systolic blood pressure 140 mm[Hg] Grace Bess MD Work Phone: [facility] 08-02-2022 10:20-0400 Body height 169.8 cm Grace Bess MD Work Phone: [facility] 08-02-2022 10:20-0400 Body temperature 97.59 [degF] Grace Bess MD Work Phone: [facility] 08-02-2022 10:20-0400 Body weight 90.81 kg Grace Bess MD Work Phone: [facility] 08-02-2022 10:20-0400 Diastolic blood pressure 74 mm[Hg] Grace Bess MD Work Phone: [facility] 08-02-2022 10:20-0400 Heart rate 75 /min Grace Bess MD Work Phone: [facility] 08-02-2022 10:20-0400 Respiratory rate 16 /min Grace Bess MD Work Phone: [facility] 08-02-2022 10:20-0400 SaO2% (BldA) [Mass fraction] 99 % Grace Bess MD Work Phone: [facility] 08-02-2022 10:20-0400 Systolic blood pressure 145 mm[Hg] Grace Bess MD Work Phone: [facility] 06-29-2022 10:37-0500 Body height 169.8 cm Grace Bess MD Work Phone: [facility] 06-29-2022 10:37-0500 Body temperature 97.59 [degF] Grace Bess MD Work Phone: [facility] 06-29-2022 10:37-0500 Body weight 89.45 kg Grace Bess MD Work Phone: [facility] 06-29-2022 10:37-0500 Diastolic blood pressure 77 mm[Hg] Grace Bess MD Work Phone: [facility] 06-29-2022 10:37-0500 Heart rate 81 /min Grace Bess MD Work Phone: [facility] 06-29-2022 10:37-0500 Respiratory rate 18 /min Grace Bess MD Work Phone: [facility] 06-29-2022 10:37-0500 SaO2% (BldA) [Mass fraction] 99 % Grace Bess MD Work Phone: [facility] 06-29-2022 10:37-0500 Systolic blood pressure 137 mm[Hg] Grace Bess MD Work Phone: [facility] 05-11-2022 09:23-0500 Body height 169.8 cm Grace Bess MD Work Phone: [facility] 05-11-2022 09:23-0500 Body temperature 97.5 [degF] Grace Bess MD Work Phone: [facility] 05-11-2022 09:23-0500 Body weight 88.72 kg Grace Bess MD Work Phone: [facility] 05-11-2022 09:23-0500 Diastolic blood pressure 70 mm[Hg] Grace Bess MD Work Phone: [facility] 05-11-2022 09:23-0500 Heart rate 76 /min Grace Bess MD Work Phone: [facility] 05-11-2022 09:23-0500 Respiratory rate 16 /min Grace Bess MD Work Phone: [facility] 05-11-2022 09:23-0500 SaO2% (BldA) [Mass fraction] 98 % Grace Bess MD Work Phone: [facility] 05-11-2022 09:23-0500 Systolic blood pressure 130 mm[Hg] Grace Bess MD Work Phone: [facility] 04-27-2022 08:50-0500 Body height 169.8 cm Yordy Moncada APRN.EDUCATION LIAISON Work Phone: [facility] 04-27-2022 08:50-0500 Body temperature 97.39 [degF] Yordy Moncada APRN.EDUCATION LIAISON Work Phone: [facility] 04-27-2022 08:50-0500 Body weight 87.64 kg Yordy Moncada APRN.EDUCATION LIAISON Work Phone: [facility] 04-27-2022 08:50-0500 Diastolic blood pressure 68 mm[Hg] Yordy Moncada APRN.EDUCATION LIAISON Work Phone: [facility] 04-27-2022 08:50-0500 Heart rate 79 /min Yordy Moncada APRN.EDUCATION LIAISON Work Phone: [facility] 04-27-2022 08:50-0500 Respiratory rate 16 /min Yordy Moncada APARTMENT HOUSE MANAGER.EDUCATION LIAISON Work Phone: [facility] 04-27-2022 08:50-0500 SaO2% (BldA) [Mass fraction] 99 % Yordy Moncada APARTMENT HOUSE MANAGER.EDUCATION LIAISON Work Phone: [facility] 04-27-2022 08:50-0500 Systolic blood pressure 136 mm[Hg] Yordy Moncada APARTMENT HOUSE MANAGER.EDUCATION LIAISON Work Phone: [facility] 04-06-2022 11:57-0500 Body height 169.8 cm Greta Rashard PA-C Work Phone: [facility] 04-06-2022 11:57-0500 Body temperature 97.3 [degF] Greta Rashard PA-C Work Phone: [facility] 04-06-2022 11:57-0500 Body weight 88.81 kg Greta Rashard PA-C Work Phone: [facility] 04-06-2022 11:57-0500 Diastolic blood pressure 73 mm[Hg] Greta Rashard PA-C Work Phone: [facility] 04-06-2022 11:57-0500 Heart rate 76 /min Greta Rashard PA-C Work Phone: [facility] 04-06-2022 11:57-0500 Respiratory rate 16 /min Greta Rashard PA-C Work Phone: [facility] 04-06-2022 11:57-0500 SaO2% (BldA) [Mass fraction] 100 % Greta Rashard PA-C Work Phone: [facility] 04-06-2022 11:57-0500 Systolic blood pressure 125 mm[Hg] Greta Rashard PA-C Work Phone: [facility] 03-30-2022 10:46-0500 Body height 169.8 cm Greta Rashard PA-C Work Phone: [facility] 03-30-2022 10:46-0500 Body temperature 97.81 [degF] Greta Rashard PA-C Work Phone: [facility] 03-30-2022 10:46-0500 Body weight 87.64 kg Greta Rashard PA-C Work Phone: [facility] 03-30-2022 10:46-0500 Diastolic blood pressure 72 mm[Hg] Greta Rashard PA-C Work Phone: [facility] 03-30-2022 10:46-0500 Heart rate 69 /min Greta Rashard PA-C Work Phone: [facility] 03-30-2022 10:46-0500 Respiratory rate 16 /min Greta Rashard PA-C Work Phone: [facility] 03-30-2022 10:46-0500 SaO2% (BldA) [Mass fraction] 98 % Greta Rashard PA-C Work Phone: [facility] 03-30-2022 10:46-0500 Systolic blood pressure 136 mm[Hg] Greta Rashard PA-C Work Phone: [facility] 03-16-2022 08:36-0400 Body height 169.8 cm Greta Rashard PA-C Work Phone: [facility] 03-16-2022 08:36-0400 Body temperature 97.81 [degF] Greta Rashard PA-C Work Phone: [facility] 03-16-2022 08:36-0400 Body weight 87.45 kg Greta Rashard PA-C Work Phone: [facility] 03-16-2022 08:36-0400 Diastolic blood pressure 75 mm[Hg] Greta Rashard PA-C Work Phone: [facility] 03-16-2022 08:36-0400 Heart rate 70 /min Greta Rashard PA-C Work Phone: [facility] 03-16-2022 08:36-0400 Respiratory rate 16 /min Greta Rashard PA-C Work Phone: [facility] 03-16-2022 08:36-0400 SaO2% (BldA) [Mass fraction] 97 % Greta Rahsard PA-C Work Phone: [facility] 03-16-2022 08:36-0400 Systolic blood pressure 143 mm[Hg] Greta Rashard PA-C Work Phone: [facility] 03-09-2022 08:59-0400 Body height 172.7 cm Grace Bess MD Work Phone: [facility] 03-09-2022 08:59-0400 Body temperature 97.5 [degF] Grace Bess MD Work Phone: [facility] 03-09-2022 08:59-0400 Body weight 86.27 kg Grace Bess MD [facility] [facility] 03-09-2022 08:59-0400 Diastolic blood pressure 66 mm[Hg] Grace Bess MD Work Phone: [facility] 03-09-2022 08:59-0400 Heart rate 70 /min Grace Bess MD Work Phone: [facility] 03-09-2022 08:59-0400 Respiratory rate 16 /min Grace Bess MD Work Phone: [facility] 03-09-2022 08:59-0400 SaO2% (BldA) [Mass fraction] 98 % Grace Bess MD Work Phone: [facility] 03-09-2022 08:59-0400 Systolic blood pressure 143 mm[Hg] Grace Bess MD Work Phone: [facility] 02-22-2022 10:17-0400 Body height 172.7 cm Grace Bess MD Work Phone: [facility] 02-22-2022 10:17-0400 Body temperature 98.01 [degF] Grace Bess MD Work Phone: [facility] 02-22-2022 10:17-0400 Body weight 86.46 kg Grace Bess MD Work Phone: [facility] 02-22-2022 10:17-0400 Diastolic blood pressure 73 mm[Hg] Grace Bess MD Work Phone: [facility] 02-22-2022 10:17-0400 Heart rate 70 /min Grace Bess MD Work Phone: [facility] 02-22-2022 10:17-0400 Respiratory rate 16 /min Grace Bess MD Work Phone: [facility] 02-22-2022 10:17-0400 SaO2% (BldA) [Mass fraction] 99 % Grace Bess MD Work Phone: [facility] 02-22-2022 10:17-0400 Systolic blood pressure 135 mm[Hg] Grace Bess MD Work Phone: [facility] 10-22-2021 11:10-0400 Diastolic blood pressure 76 mm[Hg] Eyad Manriquez MD Work Phone: [facility] 10-22-2021 11:10-0400 Heart rate 64 /min Eyad Manriquez MD Work Phone: [facility] 10-22-2021 11:10-0400 Respiratory rate 16 /min Eyad Manriquez MD Work Phone: [facility] 10-22-2021 11:10-0400 SaO2% (BldA) [Mass fraction] 98 % Eyad Manriquez MD Work Phone: [facility] 10-22-2021 11:10-0400 Systolic blood pressure 130 mm[Hg] Eyad Manriquez MD Work Phone: [facility] 10-22-2021 10:50-0400 Body temperature 97.7 [degF] Eyad Manriquez MD Work Phone: [facility] 10-22-2021 09:48-0400 Body height 172.7 cm Eyad Manriquez MD Work Phone: [facility] 10-22-2021 09:48-0400 Body weight 86.18 kg Eyad Manriquez MD Work Phone: [facility] Encounters Encounter Date Encounter Type Care Provider Facility Start: 10-13-2023 End: 10-13-2023 ambulatory GIOVANNI SALINAS II Facility:[facility] Start: 10-13-2023 End: 10-13-2023 ambulatory Chair Hannah Delgado Work Phone: Hematology/Oncology Comment on above: Malignant neoplasm o f head of pancreas (HCC) (Primary Dx) Start: 10-11-2023 End: 10-11-2023 Nursing evaluation of patient and report Ma Nurse [facility] Rosenberg Work Phone: Hematology/Oncology Comment on above: Frequency of urinati on (Primary Dx); 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) Start: 10-11-2023 End: 10-11-2023 Office outpatient visit 15 minutes Greta Wetzel PA-C Work Phone: Hematology/Oncology Comment on above: Malignant neoplasm o f head of pancreas (HCC) (Primary Dx); Frequency of urination; Leg swelling; Acute cough; Anemia, unspecified type Start: 10-11-2023 End: 10-11-2023 ambulatory [facility] [place] Work Phone: Hematology/Oncology Comment on above: Leg swelling; 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); Neuropathy; Acute cough Malignant neoplasm o f head of pancreas (HCC) (Primary Dx) Start: 10-05-2023 Telephone encounter Josephine Salomon RN Work Phone: Hematology/Oncology Comment on above: Care Coordination (T umor marker results) Start: 10-04-2023 Telephone encounter Josephine Salomon RN Work Phone: Hematology/Oncology Comment on above: Care Coordination (C XR results) Start: 10-03-2023 Telephone encounter Greta kempr PA-C [facility] Comment on above: Radiology US Start: 10-03-2023 End: 10-03-2023 Office outpatient visit 25 minutes Greta ODEN-C Work Phone: Hematology/Oncology Comment on above: Malignant neoplasm o f head of pancreas (HCC) (Primary Dx); Leg swelling; Neuropathy; Acute cough; Diabetes mellitus due to underlying condition with diabetic polyneuropathy, without long-term current use of insulin (HCC) Start: 10-03-2023 End: 10-03-2023 ambulatory [facility] [place] Work Phone: Hematology/Oncology Comment on above: Malignant neoplasm o f head of pancreas (HCC); Neuropathy Start: 09-25-2023 Telephone encounter Greta Velazquez sser PA-C Work Phone: Hematology/Oncology Comment on above: Lab Orders Start: 09-18-2023 Telephone encounter Josephine Salomon RN Work Phone: Hematology/Oncology Comment on above: Care Coordination (c ough) Start: 09-15-2023 End: 09-15-2023 ambulatory Chair 20 [place] Work Phone: Hematology/Oncology Comment on above: Malignant neoplasm o f head of pancreas (HCC) (Primary Dx) Start: 09-13-2023 End: 09-13-2023 ambulatory GIOVANNI SALINAS II Facility:[facility] Start: 09-13-2023 End: 09-13-2023 Nutrition therapy Yordy Moncada APRN.EDUCATION LIAISON Work Phone: Hematology/Oncology Comment on above: Malignant neoplasm o f head of pancreas (HCC) (Primary Dx); Type 2 diabetes mellitus without complication, with long-term current use of insulin (HCC); Neuropathy; Severe protein-calorie malnutrition (HCC); Diabetes mellitus due to underlying condition with diabetic polyneuropathy, without long-term current use of insulin (HCC) Start: 09-13-2023 End: 09-13-2023 Patient encounter procedure Yordy Moncada APRN.CNP Work Phone: Hematology/Oncology Start: 09-13-2023 End: 09-13-2023 ambulatory [facility] [place] [facility] [place] Work Phone: Hematology/Oncology Comment on above: Malignant neoplasm o f head of pancreas (HCC) Malignant neoplasm o f head of pancreas (HCC) (Primary Dx) Start: 08-25-2023 End: 08-25-2023 ambulatory GIOVANNI B SALINAS II Facility:[facility] Start: 08-23-2023 End: 08-23-2023 ambulatory GIOVANNI B SALINAS II Facility:[facility] Start: 08-23-2023 End: 08-23-2023 Patient encounter procedure Grace Bess MD Work Phone: [facility] Start: 08-23-2023 End: 08-23-2023 ambulatory [facility] [place] Work Phone: Hematology/Oncology Comment on above: Malignant neoplasm o f head of pancreas (HCC) Malignant neoplasm o f head of pancreas (HCC) (Primary Dx) Start: 08-18-2023 End: 08-18-2023 ambulatory GIOVANNI B SALINAS II Facility:[facility] Start: 08-09-2023 Telephone encounter Josephine Salomon RN Work Phone: Hematology/Oncology Comment on above: Care Coordination (A ppointment cancellation) Start: 08-04-2023 End: 08-05-2023 ambulatory GIOVANNI B SALINAS II Facility:[facility] Start: 08-04-2023 End: 08-04-2023 ambulatory Chair 20 [place] Work Phone: Hematology/Oncology Comment on above: Malignant neoplasm o f head of pancreas (HCC) (Primary Dx) Start: 08-02-2023 End: 08-02-2023 ambulatory GIOVANNI B SALINAS II Facility:[facility] Start: 08-02-2023 End: 08-02-2023 Patient encounter procedure Grace Bess MD Work Phone: [facility] Start: 08-02-2023 End: 08-02-2023 ambulatory [facility] [place] Work Phone: [facility] Comment on above: Malignant neoplasm o f head of pancreas (HCC) (Primary Dx) Start: 08-02-2023 End: 08-02-2023 Nutrition therapy [place] Work Phone: Hematology/Oncology Comment on above: Malignant neoplasm o f head of pancreas (HCC); Type 2 diabetes mellitus without complication, with long-term current use of insulin (HCC); Neuropathy; Severe protein-calorie malnutrition (HCC) Start: 07-21-2023 End: 07-21-2023 ambulatory GIOVANNI SALINAS II Facility:[facility] Start: 07-21-2023 End: 07-21-2023 ambulatory Chair 20 [place] Work Phone: Hematology/Oncology Comment on above: Malignant neoplasm o f head of pancreas (HCC) (Primary Dx) Start: 07-19-2023 End: 07-19-2023 ambulatory GIOVANNI SALINAS MARIO Facility:[facility] Start: 07-19-2023 End: 07-19-[address] Work Phone: Nutrition Therapy Comment on above: Nutrition Assessment Malignant neoplasm o f head of pancreas (HCC) (Primary Dx); Type 2 diabetes mellitus without complication, with long-term current use of insulin (HCC); Neuropathy; Severe protein-calorie malnutrition (HCC) Start: 07-19-2023 End: 07-19-2023 Patient encounter procedure Yordy Moncada APRN.CNP Work Phone: [facility] Start: 07-19-2023 End: 07-19-2023 ambulatory [facility] [place] Work Phone: Hematology/Oncology Comment on above: Malignant neoplasm o f head of pancreas (HCC) Malignant neoplasm o f head of pancreas (HCC) (Primary Dx) Start: 07-07-2023 End: 07-07-2023 ambulatory Chair 20 [place] Work Phone: Hematology/Oncology Comment on above: Malignant neoplasm o f head of pancreas (HCC) (Primary Dx) Start: 07-05-2023 Clinisync Result Encounter Generic External Data Provider [facility] External Department Unsolicited Start: 07-05-2023 Clinisync Result Encounter Generic External Data Provider [facility] External Department Unsolicited Start: 07-05-2023 End: 07-05-2023 ambulatory GIOVANNI SALINAS II Facility:[facility] Start: 07-05-2023 End: 07-05-2023 Patient encounter procedure Yordy 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 [employer]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 Work Phone: [facility] Start: 07-05-2023 End: 07-05-2023 ambulatory [facility] [place] Work Phone: Hematology/Oncology Comment on above: Malignant neoplasm o f head of pancreas (HCC) Malignant neoplasm o f head of pancreas (HCC) (Primary Dx) Start: 06-23-2023 Telephone encounter Josephine Salomon RN Work Phone: Hematology/Oncology Comment on above: Care Coordination (L ab results) Start: 06-23-2023 End: 06-26-2023 ambulatory GIOVANNI SALINAS II Facility:[facility] Start: 06-23-2023 End: 06-23-2023 ambulatory Chair Hannah Delgado Work Phone: Hematology/Oncology Comment on above: Malignant neoplasm o f head of pancreas (HCC) (Primary Dx) Start: 06-21-2023 End: 06-21-2023 ambulatory GIOVANNI SALINAS II Facility:[facility] Start: 06-21-2023 End: 06-21-2023 ambulatory GIOVANNI SALINAS II Facility:[facility] Start: 06-09-2023 End: 06-09-2023 ambulatory GIOVANNI B BRAD II Facility:[facility] Start: 06-07-2023 End: 06-07-2023 ambulatory GIOVANNI B BRAD II Facility:[facility] Start: 06-07-2023 End: 06-07-2023 ambulatory GIOVANNI B BRAD II Facility:[facility] Start: 05-24-2023 End: 05-24-2023 ambulatory GRACE BESS Facility:[facility] Start: 05-18-2023 End: 05-18-2023 ambulatory GIOVANNI SALINAS II Facility:[facility] Start: 05-12-2023 End: 05-12-2023 ambulatory GIOVANNI SALINAS II Facility:[facility] Start: 05-05-2023 End: 05-08-2023 ambulatory [facility] Facility:[facility] Start: 05-05-2023 End: 05-05-2023 Patient encounter procedure Grace Bess MD Work Phone: [employer] Start: 05-05-2023 End: 05-05-2023 ambulatory Grace Bess MD Work Phone: Hematology/Oncology Comment on above: Malignant neoplasm o f head of pancreas (HCC) (Primary Dx) Start: 05-05-2023 End: 05-05-2023 Nutrition therapy [place] Work Phone: Hematology/Oncology Comment on above: Type 2 diabetes chris itus without complication, with long-term current use of insulin (HCC); Severe protein-calorie malnutrition (HCC); 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); Anemia, unspecified type Start: 04-27-2023 End: 04-27-2023 ambulatory GIOVANNI SALINAS Not Available Start: 04-25-2023 Patient encounter status Generic Provider [facility] Start: 04-07-2023 Telephone encounter Josephine Salomon RN Work Phone: Hematology/Oncology Comment on above: Care Coordination (T umor marker results) Start: 04-05-2023 End: 04-06-2023 ambulatory [facility] Facility:[facility] Start: 04-05-2023 End: 04-05-2023 Nutrition therapy Yordy Moncada APRN.EDUCATION LIAISON Work Phone: Hematology/Oncology Comment on above: Malignant neoplasm o f head of pancreas (HCC) (Primary Dx); Type 2 diabetes mellitus without complication, with long-term current use of insulin (HCC); Severe protein-calorie malnutrition (HCC); Anemia, unspecified type Start: 04-05-2023 End: 04-05-2023 Patient encounter procedure Yordy Moncada APRN.EDUCATION LIAISON Work Phone: [facility] Start: 04-05-2023 End: 04-05-2023 ambulatory [facility] Work Phone: Hematology/Oncology Comment on above: Malignant neoplasm o f other parts of pancreas (HCC); Type 2 diabetes mellitus without complication, with long-term current use of insulin (HCC); LINDSEY (dyspnea on exertion) Malignant neoplasm o f head of pancreas (HCC) (Primary Dx) Start: 04-04-2023 Telephone encounter Greta woodson PA-C Work Phone: Hematology/Oncology Comment on above: Results; Care Coordi nation (Tumor marker results) Start: 03-30-2023 End: 03-31-2023 ambulatory GRACE BESS Facility:[facility] Start: 03-30-2023 End: 03-30-2023 Nutrition therapy Greta Wetzel PA-C Work Phone: Hematology/Oncology Comment on above: Malignant neoplasm o f other parts of pancreas (HCC) (Primary Dx); Type 2 diabetes mellitus without complication, with long-term current use of insulin (HCC); Severe protein-calorie malnutrition (HCC) Start: 03-30-2023 End: 03-30-2023 Patient encounter procedure Greta Wetzel PA-C Work Phone: [facility] Start: 03-08-2023 End: 03-08-2023 ambulatory GIOVANNI SALINAS II Facility:[facility] Start: 03-08-2023 End: 03-08-2023 Patient encounter procedure Grace Bess MD Work Phone: [facility] Start: 03-08-2023 End: 03-08-2023 ambulatory [facility] Work Phone: Hematology/Oncology Comment on above: Malignant neoplasm o f other parts of pancreas (HCC) Malignant neoplasm o f other parts of pancreas (HCC) (Primary Dx) Malignant neoplasm o f head of pancreas (HCC) (Primary Dx) Start: 03-02-2023 Telephone encounter Josephine Salomon RN Work Phone: Hematology/Oncology Comment on above: Care Coordination (T umor marker results) Start: 03-01-2023 End: 03-01-2023 ambulatory GIOVANNI SALINAS II Facility:[facility] Start: 03-01-2023 End: 03-02-2023 ambulatory [facility] [place] Work Phone: Hematology/Oncology Comment on above: Malignant neoplasm o f other parts of pancreas (HCC) Malignant neoplasm o f head of pancreas (HCC) (Primary Dx) Start: 02-08-2023 End: 02-08-2023 ambulatory GIOVANNI SALINAS Facility:[facility] Start: 02-08-2023 End: 02-08-2023 ambulatory Chair Martin Delgado Work Phone: Hematology/Oncology Comment on above: Malignant neoplasm o f head of pancreas (HCC) (Primary Dx) Start: 02-08-2023 End: 02-08-2023 Nutrition therapy Yordy Moncada APRN.EDUCATION LIAISON Work Phone: Hematology/Oncology Comment on above: Malignant neoplasm o f other parts of pancreas (HCC) (Primary Dx); Type 2 diabetes mellitus without complication, with long-term current use of insulin (HCC); LINDSEY (dyspnea on exertion); Severe protein-calorie malnutrition (HCC) Start: 02-08-2023 End: 02-08-2023 Patient encounter procedure Yordy Moncada APRN.EDUCATION LIAISON Work Phone: [facility] Start: 02-01-2023 Telephone encounter Elisha Osorio Hematology/Oncology Comment on above: Clinical Update Start: 02-01-2023 End: 02-01-2023 Patient encounter procedure Grace Bess MD Work Phone: [facility] Start: 02-01-2023 End: 02-01-2023 ambulatory [facility] Work Phone: Hematology/Oncology Comment on above: Malignant neoplasm o f other parts of pancreas (HCC) Malignant neoplasm o f other parts of pancreas (HCC) (Primary Dx) Malignant neoplasm o f head of pancreas (HCC) (Primary Dx) Start: 01-04-2023 End: 01-04-2023 ambulatory GIOVANNI Raul SALINAS II Facility:[facility] Start: 01-04-2023 End: 01-04-2023 ambulatory Grace Bess MD Work Phone: Hematology/Oncology Comment on above: Malignant neoplasm o f other parts of pancreas (HCC) (Primary Dx) Start: 01-04-2023 End: 01-04-2023 Patient encounter procedure Grace Bess MD Work Phone: [facility] Start: 12-21-2022 Telephone encounter Josephine Salomon RN Work Phone: Hematology/Oncology Comment on above: Care Coordination (C T results) Start: 12-21-2022 End: 12-21-2022 ambulatory GIOVANNI SALINAS II Facility:[facility] Start: 12-21-2022 End: 12-21-2022 Nutrition therapy Greta Wetzel PA-C Work Phone: Hematology/Oncology Comment on above: Malignant neoplasm o f other parts of pancreas (HCC) (Primary Dx); Chest pain, unspecified type; LINDSEY (dyspnea on exertion); Anemia, unspecified type; Type 2 diabetes mellitus without complication, with long-term current use of insulin (HCC); Severe protein-calorie malnutrition (HCC) Start: 12-21-2022 End: 12-21-2022 Patient encounter procedure Greta Wetzel PA-C Work Phone: [facility] Start: 12-21-2022 End: 12-21-2022 ambulatory [facility] [place] Work Phone: Hematology/Oncology Comment on above: Malignant neoplasm o f other parts of pancreas (HCC) (Primary Dx) LINDSEY (dyspnea on exer tion) (Primary Dx) Start: 12-15-2022 End: 12-15-2022 Emergency department patient visit Jemma Padilla Facility:[facility] Start: 12-15-2022 End: 12-15-2022 Emergency department patient visit MARIO Salinas Work Phone: [facility] Work Phone: Start: 12-14-2022 End: 12-15-2022 ambulatory GIOVANNI SALINAS II Facility:[facility] Start: 12-14-2022 End: 12-14-2022 ambulatory [facility] [place] Work Phone: Hematology/Oncology Comment on above: Malignant neoplasm o f head of pancreas (HCC) Malignant neoplasm o f head of pancreas (HCC) (Primary Dx) Start: 12-06-2022 Patient encounter procedure [facility] Provider [facility] Start: 12-05-2022 Telephone encounter Grace rebolledo MD Work Phone: Hematology/Oncology Comment on above: Results Start: 12-05-2022 End: 12-05-2022 Nutrition therapy Greta Wetzel PA-C Work Phone: Hematology/Oncology Comment on above: Malignant neoplasm o f head of pancreas (HCC) (Primary Dx); Anemia, unspecified type; Type 2 diabetes mellitus without complication, with long-term current use of insulin (HCC); Severe protein-calorie malnutrition (HCC) Start: 12-05-2022 End: 12-05-2022 Patient encounter procedure Greta Wetzel PA-C Work Phone: [facility] Start: 12-05-2022 End: 12-05-2022 ambulatory [facility] [place] Work Phone: Hematology/Oncology Comment on above: Malignant neoplasm o f head of pancreas (HCC) Start: 11-30-2022 End: 11-30-2022 ambulatory GIOVANNI B BRAD II Facility:[facility] Start: 11-30-2022 End: 11-30-2022 Patient encounter procedure Grace Bess MD Work Phone: [facility] Start: 11-30-2022 End: 11-30-2022 ambulatory [facility] [place] Work Phone: Hematology/Oncology Comment on above: Malignant neoplasm o f head of pancreas (HCC) Malignant neoplasm o f head of pancreas (HCC) (Primary Dx) Start: 11-23-2022 End: 11-23-2022 ambulatory GIOVANNI B SALINAS II Facility:[facility] Start: 11-23-2022 End: 11-23-2022 Nutrition therapy Greta Wetzel PA-C Work Phone: Hematology/Oncology Comment on above: Malignant neoplasm o f head of pancreas (HCC) (Primary Dx); Anemia, unspecified type; Type 2 diabetes mellitus without complication, with long-term current use of insulin (HCC); Severe protein-calorie malnutrition (HCC) Start: 11-23-2022 End: 11-23-2022 Patient encounter procedure Greta Wetzel PA-C Work Phone: [facility] Start: 11-23-2022 Telephone encounter Greta Jacoby Marcus woodson PA-C [facility] Comment on above: Future Appointment Start: 11-23-2022 End: 11-23-2022 ambulatory [facility] Work Phone: Hematology/Oncology Comment on above: Malignant neoplasm o f head of pancreas (HCC) Malignant neoplasm o f head of pancreas (HCC) (Primary Dx) Start: 11-10-2022 Telephone encounter Josephine Salomon RN Work Phone: Hematology/Oncology Comment on above: Care Coordination (E R recommendation) Start: 11-10-2022 End: 11-10-2022 ambulatory GRACE BESS Facility:[facility] Start: 11-10-2022 End: 11-10-2022 Patient encounter procedure Grace Bess MD Work Phone: [facility] Start: 11-10-2022 End: 11-10-2022 ambulatory Grace Bess MD Work Phone: Hematology/Oncology Comment on above: Malignant neoplasm o f head of pancreas (HCC) (Primary Dx) Malignant neoplasm o f head of pancreas (HCC) Start: 11-07-2022 Telephone encounter Josephine Salomon RN Work Phone: Hematology/Oncology Comment on above: Care Coordination (C T results ) Start: 11-03-2022 Chart abstracting Pooja amin RN Work Phone: Hematology/Oncology Comment on above: Research (IRB# [id number] Informed Consent) Start: 11-03-2022 End: 11-03-2022 ambulatory GIOVANNI SALINAS II Facility:[facility] Start: 09-29-2022 End: 09-29-2022 Patient encounter procedure Grace Bess MD Work Phone: [facility] Start: 09-29-2022 End: 09-29-2022 ambulatory Grace Bess MD Work Phone: Hematology/Oncology Comment on above: Malignant neoplasm o f head of pancreas (HCC) (Primary Dx) Malignant neoplasm o f head of pancreas (HCC) Start: 08-03-2022 Refill Adina Colón [facility] Comment on above: Refill Request Start: 08-02-2022 End: 08-02-2022 ambulatory Grace Bess MD Work Phone: Hematology/Oncology Comment on above: Malignant neoplasm o f head of pancreas (HCC) (Primary Dx) Refill Request Malignant neoplasm o f head of pancreas (HCC) Start: 08-02-2022 End: 08-02-2022 Patient encounter procedure Grace Bess MD Work Phone: [facility] Start: 06-29-2022 End: 06-29-2022 Patient encounter procedure Grace Bess MD Work Phone: [facility] Start: 06-29-2022 End: 06-29-2022 ambulatory [facility] Work Phone: Hematology/Oncology Comment on above: Malignant neoplasm o f head of pancreas (HCC) Malignant neoplasm o f head of pancreas (HCC) (Primary Dx) Start: 06-01-2022 End: 06-01-2022 ambulatory [facility] [place] Work Phone: Hematology/Oncology Comment on above: Malignant neoplasm o f head of pancreas (HCC) Start: 05-11-2022 Telephone encounter Key Osorio Hematology/Oncology Comment on above: Orders Start: 05-11-2022 End: 05-11-2022 Patient encounter procedure Grace Bess MD Work Phone: [facility] Start: 05-11-2022 End: 05-11-2022 ambulatory [facility] [place] Work Phone: Hematology/Oncology Comment on above: Malignant neoplasm o f head of pancreas (HCC); Anemia, unspecified type Malignant neoplasm o f head of pancreas (HCC) (Primary Dx) Start: 04-27-2022 End: 04-27-2022 ambulatory Chair 12 [place] Work Phone: Hematology/Oncology Comment on above: Malignant neoplasm o f head of pancreas (HCC) (Primary Dx) Malignant neoplasm o f head of pancreas (HCC) (Primary Dx); Anemia, unspecified type Start: 04-27-2022 End: 04-27-2022 Patient encounter procedure Yordy Moncada APRN.CNP Work Phone: [facility] Start: 04-26-2022 End: 04-26-2022 ambulatory [facility] Work Phone: Hematology/Oncology Comment on above: Malignant neoplasm o f head of pancreas (HCC) Start: 04-20-2022 Telephone encounter Josephine Salomon RN Work Phone: Hematology/Oncology Comment on above: Care Coordination (M edication clarification) Start: 04-20-2022 End: 04-20-2022 ambulatory [facility] [place] Work Phone: Hematology/Oncology Comment on above: Malignant neoplasm o f head of pancreas (HCC) Start: 04-06-2022 End: 04-06-2022 Patient encounter procedure Greta ODEN-C Work Phone: [facility] Start: 04-06-2022 End: 04-06-2022 ambulatory Greta Wetzel PA-C Work Phone: Hematology/Oncology Comment on above: Malignant neoplasm o f head of pancreas (HCC) (Primary Dx) Malignant neoplasm o f head of pancreas (HCC) Start: 04-05-2022 Telephone encounter Josephine Salomon RN Work Phone: Hematology/Oncology Comment on above: Care Coordination (T umor marker results) Start: 03-30-2022 Telephone encounter Josephine Salomon RN Work Phone: Hematology/Oncology Comment on above: Care Coordination (M edication clarification) Start: 03-30-2022 End: 03-30-2022 ambulatory Greta Dozier Rashard PA-C Work Phone: Hematology/Oncology Comment on above: Malignant neoplasm o f head of pancreas (HCC) (Primary Dx); Anemia, unspecified type Start: 03-30-2022 End: 03-30-2022 Patient encounter procedure Greta Dozier Rashard PA-C Work Phone: [facility] Start: 03-28-2022 Telephone encounter Jose Antonio LARSON Work Phone: Genetic [facility] Comment on above: Results Start: 03-17-2022 Telephone encounter Josephine Salomon RN Work Phone: Hematology/Oncology Comment on above: Care Coordination (S tool results) Start: 03-16-2022 End: 03-16-20[address] Ibis Harvey RD Work Phone: Nutrition Therapy Comment on above: Nutrition Counseling Start: 03-16-2022 End: 03-16-2022 Telemedicine consultation with patient Jose Antonio LARSON Work Phone: [facility] Start: 03-16-2022 End: 03-16-2022 Patient encounter procedure Greta Dozier Rashard PA-C Work Phone: [facility] Start: 03-16-2022 End: 03-16-2022 ambulatory Greta Dozier Rashard PA-C Work Phone: Hematology/Oncology Comment on above: Malignant neoplasm o f head of pancreas (HCC) (Primary Dx); Anemia, unspecified type Malignant neoplasm o f head of pancreas (HCC) Malignant neoplasm o f head of pancreas (HCC) (Primary Dx); Acute pancreatitis without infection or necrosis, unspecified pancreatitis type Start: 03-14-2022 Telephone encounter Josephine Salomon RN Work Phone: Hematology/Oncology Comment on above: Care Coordination (C 1D1 treatment follow up call) Start: 03-10-2022 Telephone encounter Josephine Salomon RN Work Phone: Hematology/Oncology Comment on above: Care Coordination (F ollow up call) Start: 03-09-2022 End: 03-09-2022 ambulatory Grace Bess MD Work Phone: Hematology/Oncology Comment on above: Malignant neoplasm o f head of pancreas (HCC) (Primary Dx) Start: 03-09-2022 Telephone encounter Financial Navigator Luis Miguel Work Phone: Hematology/Oncology Comment on above: Benefits Investigati on Care Coordination (A ntiemetics transferred to [facility] in [place]) Start: 03-09-2022 End: 03-09-[address]bis [address] RD Work Phone: Nutrition Therapy Comment on above: Nutrition Assessment Start: 03-09-2022 End: 03-09-2022 Patient encounter procedure Grace Bess MD Work Phone: [place] Start: 03-07-2022 Telephone encounter Josephine Salomon RN Work Phone: Hematology/Oncology Comment on above: Care Coordination (D ietician referral) Start: 03-07-2022 End: 03-07-2022 Nursing evaluation of patient and report Josephine Salomon RN Work Phone: Hematology/Oncology Comment on above: Malignant neoplasm o f head of pancreas (HCC) (Primary Dx) Start: 03-04-2022 Telephone encounter Josephine Salomon RN Work Phone: Hematology/Oncology Comment on above: Care Coordination (A ntiemetics for treatment) Start: 02-25-2022 Telephone encounter Vel Sims RN [facility] Radiology Procedure Comment on above: Radiology Pre Proced ure Instructions Start: 02-23-2022 Orders Only Antoinette Marina RN [facility] Radiology Procedure Comment on above: Malignant neoplasm o f pancreas, unspecified location of malignancy (HCC) (Primary Dx) Start: 02-22-2022 Telephone encounter Josephine Salomon RN Work Phone: Hematology/Oncology Comment on above: Care Coordination (T reatment questions) Care Coordination (F ollow up question) Start: 02-22-2022 End: 02-22-2022 ambulatory Grace Bess MD Work Phone: Hematology/Oncology Comment on above: Malignant neoplasm o f head of pancreas (HCC) (Primary Dx) Start: 02-22-2022 End: 02-22-2022 Patient encounter procedure Grace Bess MD Work Phone: [facility] Start: 02-17-2022 End: 02-18-2022 Patient encounter procedure Fara Monaco MD Work Phone: General Surgery Comment on above: Adenocarcinoma of he ad of pancreas (HCC) (Primary Dx) Start: 02-08-2022 Telephone encounter Fara jain MD Work Phone: General Surgery Comment on above: Opened In Error Start: 01-04-2022 Telephone encounter Fara jain MD Work Phone: General Surgery Comment on above: Question Start: 10-22-2021 End: 10-22-2021 Subsequent hospital visit by physician Eyad Manriquez MD Work Phone: Gastroenterology Start: 08-10-2021 Telephone encounter Eyad Escobar MD Work Phone: Gastroenterology Comment on above: Question Start: 05-25-2021 End: 06-21-[address] GIOVANNI SALINAS Facility:[facility] Start: 2021 End: 05-21-[address] GIOVANNI SALINAS Facility:[facility] Start: 03-25-2021 End: 03-25-[address] GIOVANNI SALINAS Facility:[facility] Start: 03-11-2021 End: 03-11-[address] GIOVANNI SALINAS Facility:[facility] Start: 03-04-2021 End: 03-04-[address] DOCTOR IYER Facility:[facility] Start: 02-25-2021 End: 02-25-[address] DOCTOR IYER Facility:[facility] Start: 02-19-2021 End: 03-19-[address] GIOVANNI SALINAS Facility:[facility] Start: 02-05-2021 End: 02-11-2021 Evaluation and management of inpatient [facility] Start: 01-22-2021 End: 02-19-[address] GIOVANNI SALINAS Facility:[facility] Start: 12-21-2020 End: 01-20-[address] GIOVANNI SALINAS Facility:[facility] Start: 11-19-2020 End: 12-20-2020 ambulatory PRAVEEN ALVAREZ Facility:[facility] Start: 10-20-2020 End: 11-19-[address] GIOVANNI SALINAS Facility:[facility] Start: 09-21-2020 End: 10-20-[address] GIOVANNI SALINAS Facility:[facility] Start: 08-20-2020 End: 09-19-[address] GIOVANNI SALINAS Facility:[facility] Start: 07-20-2020 End: 08-20-[address] GIOVANNI SALINAS Facility:[facility] Start: 04-15-2020 End: 04-16-2020 Patient encounter procedure FARA MONACO [facility] Start: 04-15-2020 End: 04-15-2020 Subsequent hospital visit by physician Giovanni Salinas [facility] Start: 03-16-2020 End: 03-17-2020 Patient encounter procedure GIOVANNI SALINAS [facility] Start: 03-16-2020 End: 03-16-2020 Subsequent hospital visit by physician Giovanni Salinas [facility] Start: 11-23-2019 Patient encounter status Eyad Manriquez MD Work Phone: [facility] Work Phone: Procedures Date Procedure Procedure Detail Performing Clinician Start: 10-11-2023 Urnls dip stick/tabl et rgnt auto w/o microscopy [facility] Provider Start: 10-11-2023 Blood count complete auto&auto difrntl wbc Greta Wetzel PA-C Work Phone: Start: 10-03-2023 Blood count complete auto&auto difrntl wbc Greta Wetzel PA-C Work Phone: Start: 09-13-2023 Blood count complete auto&auto difrntl wbc Grace Bess MD Work Phone: Start: 08-23-2023 Blood count complete auto&auto difrntl wbc Grace Bess MD Work Phone: Start: 08-02-2023 Blood count complete auto&auto difrntl wbc Yordy Moncada APARTMENT HOUSE MANAGER.EDUCATION LIAISON Work Phone: Start: 07-19-2023 Blood count complete auto&auto difrntl wbc Yordy Moncada APARTMENT HOUSE MANAGER.EDUCATION LIAISON Work Phone: Start: 07-05-2023 [facility] CBC W AUTO DIFF BLD Generic External Data Provider Start: 07-05-2023 Blood count complete auto&auto difrntl wbc Grace Bess MD Work Phone: Start: 05-05-2023 Blood count complete auto&auto difrntl wbc Yordy Moncada APARTMENT HOUSE MANAGER.EDUCATION LIAISON Work Phone: Start: 04-05-2023 Blood count complete auto&auto difrntl wbc Yordy Moncada APARTMENT HOUSE MANAGER.EDUCATION LIAISON Work Phone: Start: 03-08-2023 Blood count complete auto&auto difrntl wbc Grace Bess MD Work Phone: Start: 03-01-2023 Blood count complete auto&auto difrntl wbc Grace Bess MD Work Phone: Start: 02-01-2023 Blood count complete auto&auto difrntl wbc Grace Bess MD Work Phone: Start: 12-15-2022 CT cervical spine wi thout contrast II Giovanni Salinas Work Phone: Start: 12-15-2022 CT of head without contrast II Giovanni Salinas Work Phone: Start: 12-14-2022 Blood count complete auto&auto difrntl wbc Grace Bess MD Work Phone: Start: 12-05-2022 CBC + DIFF Grace rebolledo MD Work Phone: Start: 11-30-2022 Blood count complete auto&auto difrntl wbc Greta Wetzel PA-C Work Phone: Start: 11-23-2022 Blood count complete auto&auto difrntl wbc Grace Bess MD Work Phone: Start: 11-10-2022 Blood count complete auto&auto difrntl wbc Grace Bess MD Work Phone: Start: 09-29-2022 Blood count complete auto&auto difrntl wbc Grace Bess MD Work Phone: Start: 08-02-2022 Blood count complete auto&auto difrntl wbc Grace Bess MD Work Phone: Start: 06-29-2022 Blood count complete auto&auto difrntl wbc Grace Bess MD Work Phone: Start: 06-01-2022 Blood count complete auto&auto difrntl wbc Grace Bess MD Work Phone: Start: 05-11-2022 Blood count complete auto&auto difrntl wbc Yordy Moncada APRN.CNP Work Phone: Start: 04-26-2022 Blood count complete auto&auto difrntl wbc Grace Bess MD Work Phone: Start: 04-20-2022 Blood count complete auto&auto difrntl wbc Greta Dozier Rashard PA-C Work Phone: Start: 04-06-2022 CBC + DIFF Greta Dozier Mu sser PA-C Work Phone: Start: 04-06-2022 Comprehensive metabo lic panel Greta Dozier Rashard PA-C Work Phone: Start: 03-16-2022 Blood count complete auto&auto difrntl wbc Grace Bess MD Work Phone: Start: 12-04-2020 Jeff andrew MD Work Phone: Start: 04-15-2020 Blood count complete auto&auto difrntl wbc TOMS HEYDI Start: 04-15-2020 Comprehensive metabo lic panel TOMS HEYDI Start: 04-15-2020 Blood count complete auto&auto difrntl wbc Fara Monaco Work Phone: Start: 04-15-2020 Comprehensive metabo lic panel Fara Monaco Work Phone: Start: 03-16-2020 Blood count complete automated FARA MONACO Start: 03-16-2020 Comprehensive metabo lic panel FARA MONACO Start: 03-16-2020 Blood count complete automated Giovanni Salinas Work Phone: Start: 03-16-2020 Comprehensive metabo lic panel Giovanni Salinas Work Phone: Start: 11-24-2019 Lipid 1996 panel - S dusty or Plasma [facility] Work Phone: Start: 11-13-2019 Colonoscopy Generic Pr ovider Plan of Treatment Date Care Activity Detail Author Start: 12-15-2032 Urine microalbumin profile [facility] Start: 11-12-2029 Screening for malign ant neoplasm of colon [facility] Start: 05-05-2026 [facility] Start: 04-05-2026 Diabetes Screening [facility] Start: 03-30-2026 Diabetes Screening Diabetes [facility] Start: 03-08-2026 Diabetes Screening [facility] Start: 03-01-2026 Diabetes Screening [facility] Start: 02-08-2026 Diabetes Screening [facility] Start: 02-01-2026 Diabetes Screening Diabetes [facility] Start: 01-04-2026 DIABETES SCREEN DIABETES SCREEN [facility] Start: 12-21-2025 DIABETES SCREEN DIABETES SCREEN [facility] Start: 12-14-2025 DIABETES SCREEN DIABETES SCREEN [facility] Start: 11-30-2025 DIABETES SCREEN DIABETES SCREEN [facility] Start: 11-23-2025 DIABETES SCREEN DIABETES SCREEN [facility] Start: 11-10-2025 DIABETES SCREEN DIABETES SCREEN [facility] Start: 10-26-2025 DIABETES SCREEN DIABETES SCREEN [facility] Start: 09-29-2025 DIABETES SCREEN DIABETES SCREEN [facility] Start: 08-02-2025 DIABETES SCREEN DIABETES SCREEN [facility] Start: 06-29-2025 DIABETES SCREEN DIABETES SCREEN [facility] Start: 06-01-2025 DIABETES SCREEN DIABETES SCREEN [facility] Start: 05-11-2025 DIABETES SCREEN DIABETES SCREEN [facility] Start: 04-26-2025 DIABETES SCREEN DIABETES SCREEN [facility] Start: 04-20-2025 DIABETES SCREEN DIABETES SCREEN [facility] Start: 04-06-2025 DIABETES SCREEN DIABETES SCREEN [facility] Start: 03-30-2025 DIABETES SCREEN DIABETES SCREEN [facility] Start: 03-16-2025 DIABETES SCREEN DIABETES SCREEN [facility] Start: 03-07-2025 DIABETES SCREEN DIABETES SCREEN [facility] Start: 11-23-2024 Lipid 1996 panel - S dusty or Plasma Lipid Screening [facility] Start: 11-23-2024 Lipid panel Lipid Screening [facility] Start: 11-23-2024 LIPID SCREEN LIPID SCREEN [facility] Start: 08-17-2024 Screening for malign ant neoplasm of lung Lung Cancer Screening [facility] Start: 05-18-2024 Screening for malign ant neoplasm of lung Lung Cancer Screening [facility] Start: 04-27-2024 Pneumococcal Vaccine : 65+ Years (1 - PCV) Pneumococcal Vaccine: 65+ Years (1 - PCV) [facility] Comment on above: Postponed from 04/21 (Patient Refused) Start: 02-12-2024 DIABETES SCREEN DIABETES SCREEN [facility] Start: 01-21-2024 Influenza vaccination Influenz a Vaccine (Season Ended) [facility] Start: 11-19-2023 Influenza vaccination Influenza Vacc ine (#1) [facility] Comment on above: Postponed from 01/20 (Patient Refused) Start: 11-16-2023 End: 11-16-2023 Follow-up encounter Hematology/Oncology Comment on above: 3 week follow up and chemotx Julia // pump connecct Start: 11-14-2023 End: 11-14-2023 Follow-up encounter Hematology/Oncology Comment on above: 3 week follow up and chemotx Julia // pump connect Start: 11-14-2023 End: 11-14-2023 Follow-up encounter Hematology/Oncology Comment on above: 3 week follow up and chemotx Julia // pump connecct 3 week follow up and chemotx Julia // pump connect Start: 11-04-2023 Influenza vaccination LUNG CANCER SC REENING [facility] Start: 11-04-2023 Screening for malign ant neoplasm of lung Lung Cancer Screening [facility] Start: 11-03-2023 End: 11-03-2023 ambulatory 11/03/2023 11:00 AM [facility] Hematology/Oncology [address] [place] [address] pump disconnect Hematology/Oncology Comment on above: pump disconnect Start: 11-01-2023 End: 11-01-2023 Follow-up encounter Hematology/Oncology Comment on above: 3 week follow up and chemotx Julia // pump connecct Start: 10-27-2023 Hemoglobin A1c measurement HbA1C [facility] Start: 10-27-2023 Medicare Annual Well ness (AWV) Medicare Annual Wellness (AWV) [facility] Start: 10-27-2023 End: 10-27-2023 ambulatory 10/27/2023 10:30 AM [facility] Infusion Center Hematology/Oncology [address] [place] [address] pump disconnect Hematology/Oncology Comment on above: pump disconnect Start: 10-25-2023 End: 10-25-2023 Follow-up encounter Hematology/Oncology Comment on above: 3 week follow up and chemotx Julia // pump connecct Start: 10-13-2023 End: 10-13-2023 ambulatory 10/13/2023 11:30 AM [facility] Infusion Center Hematology/Oncology [facility] [place] [address] [place] [address] pump disconnect Hematology/Oncology Comment on above: pump disconnect Start: 10-12-2023 End: 10-12-2023 ambulatory 10/12/2023 11:30 AM [facility] Infusion Center Hematology/Oncology [address] [place] [address] pump disconnect Hematology/Oncology Comment on above: pump disconnect Start: 10-11-2023 End: 01-10-2024 Cancer Ag 19-9 [Units/volume] in Serum or Plasma CA 19-9 Lab Routine 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) Expected: 10/11/2023, Expires: 01/10/2024 [facility] Comment on above: Expected: 10/11/2023 , Expires: 01/10/2024 Start: 10-11-2023 End: 01-10-2024 CBC W Auto Differential panel - Blood COMPLETE BLOOD COUNT AND DIFFERENTIAL Lab Routine 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) Expected: 10/11/2023, Expires: 01/10/2024 [facility] Comment on above: Expected: 10/11/2023 , Expires: 01/10/2024 Start: 10-11-2023 End: 01-10-2024 Comprehensive metabolic 2000 panel - Serum or Plasma COMPREHENSIVE METABOLIC PANEL Lab Routine 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) Expected: 10/11/2023, Expires: 01/10/2024 [facility] Work Phone: Comment on above: Expected: 10/11/2023 , Expires: 01/10/2024 Start: 10-11-2023 End: 10-11-2023 Follow-up encounter Hematology/Oncology Comment on above: 3 week follow up and chemotx Julia // pump connecct Start: 10-11-2023 End: 10-11-2023 ambulatory 10/11/2023 9:00 AM [facility] Infusion Center Hematology/Oncology [address] [place] [address] [place] [address] 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 Hematology/Oncology Comment on above: 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 Start: 10-10-2023 End: 10-10-2023 Follow-up encounter Hematology/Oncology Comment on above: 3 week follow up and chemotx Julia // pump connecct Start: 10-05-2023 End: 10-05-2023 ambulatory 10/05/2023 10:30 AM [facility] Infusion Center Hematology/Oncology [address] [place], [place] [address] [place] [address] pump disconnect Hematology/Oncology Comment on above: pump disconnect Start: 10-03-2023 End: 01-02-2024 CBC W Auto Differential panel - Blood COMPLETE BLOOD COUNT AND DIFFERENTIAL Lab Routine Leg swelling 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) Neuropathy Acute cough Expected: 10/03/2023, Expires: 01/02/2024 [facility] Comment on above: Expected: 10/03/2023 , Expires: 01/02/2024 Start: 10-03-2023 End: 01-02-2024 Comprehensive metabolic 2000 panel - Serum or Plasma COMPREHENSIVE METABOLIC PANEL Lab Routine Leg swelling 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) Neuropathy Acute cough Expected: 10/03/2023, Expires: 01/02/2024 [facility] Work Phone: Comment on above: Expected: 10/03/2023 , Expires: 01/02/2024 Start: 10-03-2023 End: 10-03-2023 Follow-up encounter Hematology/Oncology Comment on above: 3 week follow up and chemotx Julia // pump connecct Start: 09-25-2023 End: 12-25-2023 Cancer Ag 19-9 [Units/volume] in Serum or Plasma CA 19-9 Lab Routine 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) Neuropathy Expected: 09/25/2023, Expires: 12/25/2023 [facility] Comment on above: Expected: 09/25/2023 , Expires: 12/25/2023 Start: 09-25-2023 End: 12-25-2023 CBC W Auto Differential panel - Blood COMPLETE BLOOD COUNT AND DIFFERENTIAL Lab Routine 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) Neuropathy Expected: 09/25/2023, Expires: 12/25/2023 [facility] Comment on above: Expected: 09/25/2023 , Expires: 12/25/2023 Start: 09-25-2023 End: 12-25-2023 Comprehensive metabolic 2000 panel - Serum or Plasma COMPREHENSIVE METABOLIC PANEL Lab Routine 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) Neuropathy Expected: 09/25/2023, Expires: 12/25/2023 [facility] Work Phone: Comment on above: Expected: 09/25/2023 , Expires: 12/25/2023 Start: 09-15-2023 End: 09-15-2023 ambulatory 09/15/2023 11:00 AM [facility] Hematology/Oncology [address] [place] [address] [place] [address] pump disconnect Hematology/Oncology Comment on above: pump disconnect Start: 09-13-2023 End: 12-13-2023 Cancer Ag 19-9 [Units/volume] in Serum or Plasma [facility] Work Phone: Comment on above: Expected: 09/13/2023 (Approximate), Expires: 12/13/2023 Start: 09-13-2023 End: 12-13-2023 CBC W Auto Differential panel - Blood CBC + DIFF Lab Routine 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) Expected: 09/13/2023 (Approximate), Expires: 12/13/2023 [facility] Work Phone: Comment on above: Expected: 09/13/2023 (Approximate), Expires: 12/13/2023 Start: 09-13-2023 End: 12-13-2023 Cobalamin (Vitamin B12) [Mass/volume] in Serum or Plasma VITAMIN B12 BLOOD Lab Routine 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) Expected: 09/13/2023 (Approximate), Expires: 12/13/2023 [facility] Work Phone: Comment on above: Expected: 09/13/2023 (Approximate), Expires: 12/13/2023 Start: 09-13-2023 End: 12-13-2023 Comprehensive metabolic 2000 panel - Serum or Plasma COMP METABOLIC PANEL Lab Routine 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) Expected: 09/13/2023 (Approximate), Expires: 12/13/2023 [facility] Work Phone: Comment on above: Expected: 09/13/2023 (Approximate), Expires: 12/13/2023 Start: 09-13-2023 End: 08-22-2024 Ferritin [Mass/volume] in Serum or Plasma FERRITIN BLD Lab Routine 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) Expected: 09/13/2023 (Approximate), Expires: 08/22/2024 [facility] Work Phone: Comment on above: Expected: 09/13/2023 (Approximate), Expires: 08/22/2024 Start: 09-13-2023 End: 08-22-2024 Iron and Iron binding capacity panel - Serum or Plasma IRON + TIBC Lab Routine 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) Expected: 09/13/2023 (Approximate), Expires: 08/22/2024 [facility] Work Phone: Comment on above: Expected: 09/13/2023 (Approximate), Expires: 08/22/2024 Start: 08-16-2023 End: 11-15-2023 Cancer Ag 19-9 [Units/volume] in Serum or Plasma CA 19-9 BLD Lab Routine 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) Expected: 08/16/2023 (Approximate), Expires: 11/15/2023 [facility] Work Phone: Comment on above: Expected: 08/16/2023 (Approximate), Expires: 11/15/2023 Start: 08-16-2023 End: 11-15-2023 CBC W Auto Differential panel - Blood CBC + DIFF Lab Routine 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) Expected: 08/16/2023 (Approximate), Expires: 11/15/2023 [facility] Work Phone: Comment on above: Expected: 08/16/2023 (Approximate), Expires: 11/15/2023 Start: 08-16-2023 End: 11-15-2023 Comprehensive metabolic 2000 panel - Serum or Plasma COMP METABOLIC PANEL Lab Routine 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) Expected: 08/16/2023 (Approximate), Expires: 11/15/2023 [facility] Work Phone: Comment on above: Expected: 08/16/2023 (Approximate), Expires: 11/15/2023 Start: 08-16-2023 End: 08-31-2024 CT Abdomen and Pelvis W contrast IV CT ABD/PEL W IVCON Radiology Routine 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) Expected: 08/16/2023 (Approximate), Expires: 08/31/2024 [facility] Work Phone: Comment on above: Expected: 08/16/2023 (Approximate), Expires: 08/31/2024 Start: 08-16-2023 End: 08-31-2024 CT Chest W contrast IV CT CHEST W IVCON Radiology Routine 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) Expected: 08/16/2023 (Approximate), Expires: 08/31/2024 [facility] Work Phone: Comment on above: Expected: 08/16/2023 (Approximate), Expires: 08/31/2024 Start: 07-28-2023 Influenza vaccination LUNG CANCER [facility] Start: 07-27-2023 Hemoglobin A1c measurement Diabetes: Hemoglobin A1C [facility] Start: 07-26-2023 End: 10-25-2023 Cancer Ag 19-9 [Units/volume] in Serum or Plasma CA 19-9 BLD Lab Routine 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) Type 2 diabetes mellitus without complication, with long-term current use of insulin (HCC) Neuropathy Severe protein-calorie malnutrition (HCC) Expected: 07/26/2023, Expires: 10/25/2023 [facility] Work Phone: Comment on above: Expected: 07/26/2023 , Expires: 10/25/2023 Start: 07-26-2023 End: 10-25-2023 CBC W Auto Differential panel - Blood CBC + DIFF Lab Routine 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) Type 2 diabetes mellitus without complication, with long-term current use of insulin (HCC) Neuropathy Severe protein-calorie malnutrition (HCC) Expected: 07/26/2023, Expires: 10/25/2023 [facility] Work Phone: Comment on above: Expected: 07/26/2023 , Expires: 10/25/2023 Start: 07-26-2023 End: 10-25-2023 Comprehensive metabolic 2000 panel - Serum or Plasma COMP METABOLIC PANEL Lab Routine 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) Type 2 diabetes mellitus without complication, with long-term current use of insulin (HCC) Neuropathy Severe protein-calorie malnutrition (HCC) Expected: 07/26/2023, Expires: 10/25/2023 [facility] Work Phone: Comment on above: Expected: 07/26/2023 , Expires: 10/25/2023 Start: 07-13-2023 End: 10-12-2023 CBC W Auto Differential panel - Blood CBC + DIFF Lab Routine 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) Expected: 07/13/2023, Expires: 10/12/2023 [facility] [facility] Work [facility]: Comment on above: Expected: 07/13/2023 , Expires: 10/12/2023 Start: 07-13-2023 End: 10-12-2023 Comprehensive metabolic 2000 panel - Serum or Plasma COMP METABOLIC PANEL Lab Routine 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) Expected: 07/13/2023, Expires: 10/12/2023 [facility] Work Phone: Comment on above: Expected: 07/13/2023 , Expires: 10/12/2023 Start: 05-26-2023 End: 08-25-2023 Cancer Ag 19-9 [Units/volume] in Serum or Plasma CA 19-9 BLD Lab Routine 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) Expected: 05/26/2023 (Approximate), Expires: 08/25/2023 [facility] Work Phone: Comment on above: Expected: 05/26/2023 (Approximate), Expires: 08/25/2023 Start: 05-26-2023 End: 08-25-2023 CBC W Auto Differential panel - Blood CBC + DIFF Lab Routine 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) Expected: 05/26/2023 (Approximate), Expires: 08/25/2023 [facility] Work Phone: Comment on above: Expected: 05/26/2023 (Approximate), Expires: 08/25/2023 Start: 05-26-2023 End: 08-25-2023 Comprehensive metabolic 2000 panel - Serum or Plasma COMP METABOLIC PANEL Lab Routine 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) Expected: 05/26/2023 (Approximate), Expires: 08/25/2023 [facility] Work Phone: Comment on above: Expected: 05/26/2023 (Approximate), Expires: 08/25/2023 Start: 05-26-2023 End: 06-03-2024 Ct abdomen & pelvis w/contrast material CT ABD/PEL W IVCON Radiology Routine 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) Expected: 05/26/2023 (Approximate), Expires: 06/03/2024 [facility] Work Phone: Comment on above: Expected: 05/26/2023 (Approximate), Expires: 06/03/2024 Start: 05-26-2023 End: 06-03-2024 CT CHEST W IVCON CT CHEST W IVCON Radiology Routine 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) Expected: 05/26/2023 (Approximate), Expires: 06/03/2024 [facility] Work Phone: Comment on above: Expected: 05/26/2023 (Approximate), Expires: 06/03/2024 Start: 05-25-2023 [facility] Start: 05-22-2023 Advance Directive Discussion Advance Directive Discussion [facility] Start: 05-22-2023 Behavioral Health Screening Behavioral Health Screening [facility] Start: 05-22-2023 Depression Assessment Depression Ass essment [facility] Start: 05-12-2023 End: 08-11-2023 CBC W Auto Differential panel - Blood CBC + DIFF Lab Routine 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) Expected: 05/12/2023, Expires: 08/11/2023 [facility] Work Phone: Comment on above: Expected: 05/12/2023 , Expires: 08/11/2023 Start: 04-26-2023 End: 07-26-2023 Cancer Ag 19-9 [Units/volume] in Serum or Plasma CA 19-9 BLD Lab Routine Type 2 diabetes mellitus without complication, with long-term current use of insulin (HCC) Severe protein-calorie malnutrition (HCC) 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) Anemia, unspecified type Expected: 04/26/2023 (Approximate), Expires: 07/26/2023 [facility] Work Phone: Comment on above: Expected: 04/26/2023 (Approximate), Expires: 07/26/2023 Start: 04-26-2023 End: 07-26-2023 CBC W Auto Differential panel - Blood CBC + DIFF Lab Routine Type 2 diabetes mellitus without complication, with long-term current use of insulin (HCC) Severe protein-calorie malnutrition (HCC) 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) Anemia, unspecified type Expected: 04/26/2023 (Approximate), Expires: 07/26/2023 [facility] Work Phone: Comment on above: Expected: 04/26/2023 (Approximate), Expires: 07/26/2023 Start: 04-26-2023 End: 07-26-2023 Comprehensive metabolic 2000 panel - Serum or Plasma COMP METABOLIC PANEL Lab Routine Type 2 diabetes mellitus without complication, with long-term current use of insulin (HCC) Severe protein-calorie malnutrition (HCC) 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) Anemia, unspecified type Expected: 04/26/2023 (Approximate), Expires: 07/26/2023 [facility] Work Phone: Comment on above: Expected: 04/26/2023 (Approximate), Expires: 07/26/2023 Start: 03-30-2023 End: 06-29-2023 Cancer Ag 19-9 [Units/volume] in Serum or Plasma CA 19-9 BLD Lab Routine 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) Expected: 03/30/2023 (Approximate), Expires: 06/29/2023 [facility] Work Phone: Comment on above: Expected: 03/30/2023 (Approximate), Expires: 06/29/2023 Start: 03-30-2023 End: 06-29-2023 CBC W Auto Differential panel - Blood [facility] Work Phone: Comment on above: Expected: 03/30/2023 (Approximate), Expires: 06/29/2023 Expected: 03/30/2023 , Expires: 06/29/2023 Start: 03-30-2023 End: 06-29-2023 Comprehensive metabolic 2000 panel - Serum or Plasma [facility] Work Phone: Comment on above: Expected: 03/30/2023 (Approximate), Expires: 06/29/2023 Expected: 03/30/2023 , Expires: 06/29/2023 Start: 03-07-2023 Influenza vaccination LUNG CANCER IN [place] [facility] Start: 03-02-2023 End: 05-02-2023 Cancer Ag 19-9 [Units/volume] in Serum or Plasma CA 19-9 BLD Lab Routine 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) Type 2 diabetes mellitus without complication, with long-term current use of insulin (HCC) LINDSEY (dyspnea on exertion) Expected: 03/02/2023, Expires: 05/02/2023 [facility] Work Phone: Comment on above: Expected: 03/02/2023 , Expires: 05/02/2023 Start: 03-02-2023 End: 05-02-2023 CBC W Auto Differential panel - Blood CBC + DIFF Lab Routine 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) Type 2 diabetes mellitus without complication, with long-term current use of insulin (HCC) LINDSEY (dyspnea on exertion) Expected: 03/02/2023, Expires: 05/02/2023 [facility] Work Phone: Comment on above: Expected: 03/02/2023 , Expires: 05/02/2023 Start: 03-02-2023 End: 05-02-2023 Comprehensive metabolic 2000 panel - Serum or Plasma COMP METABOLIC PANEL Lab Routine 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) Type 2 diabetes mellitus without complication, with long-term current use of insulin (HCC) LINDSEY (dyspnea on exertion) Expected: 03/02/2023, Expires: 05/02/2023 [facility] Work Phone: Comment on above: Expected: 03/02/2023 , Expires: 05/02/2023 Start: 03-01-2023 End: 05-01-2023 Cancer Ag 19-9 [Units/volume] in Serum or Plasma [facility] Work Phone: Comment on above: Expected: 03/01/2023 (Approximate), Expires: 05/01/2023 Start: 03-01-2023 End: 05-01-2023 CBC W Auto Differential panel - Blood CBC + DIFF Lab Routine 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) Expected: 03/01/2023 (Approximate), Expires: 05/01/2023 [facility] Work Phone: Comment on above: Expected: 03/01/2023 (Approximate), Expires: 05/01/2023 Start: 03-01-2023 End: 05-01-2023 Comprehensive metabolic 2000 panel - Serum or Plasma [facility] Work Phone: Comment on above: Expected: 03/01/2023 (Approximate), Expires: 05/01/2023 Start: 02-08-2023 End: 04-10-2023 CBC W Auto Differential panel - Blood CBC + DIFF Lab Routine 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) Expected: 02/08/2023 (Approximate), Expires: 04/10/2023 [facility] Work Phone: Comment on above: Expected: 02/08/2023 (Approximate), Expires: 04/10/2023 Start: 02-08-2023 End: 04-10-2023 Comprehensive metabolic 2000 panel - Serum or Plasma COMP METABOLIC PANEL Lab Routine 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) Expected: 02/08/2023 (Approximate), Expires: 04/10/2023 [facility] Work Phone: Comment on above: Expected: 02/08/2023 (Approximate), Expires: 04/10/2023 Start: 02-04-2023 End: 04-06-2023 Cancer Ag 19-9 [Units/volume] in Serum or Plasma CA 19-9 BLD Lab Routine 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) Expected: 02/04/2023 (Approximate), Expires: 04/06/2023 [facility] Work Phone: Comment on above: Expected: 02/04/2023 (Approximate), Expires: 04/06/2023 Start: 02-04-2023 End: 04-06-2023 CBC W Auto Differential panel - Blood CBC + DIFF Lab Routine 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 Start: 12-14-2022 End: 02-13-2023 Cancer Ag 19-9 [Units/volume] in Serum or Plasma [facility] Work Phone: Comment on above: Expected: 12/14/2022 (Approximate), Expires: 02/13/2023 Start: 12-14-2022 End: 02-13-2023 CBC W Auto Differential panel - Blood CBC + DIFF Lab Routine 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) Expected: 12/14/2022 (Approximate), Expires: 02/13/2023 [facility] Work Phone: Comment on above: Expected: 12/14/2022 (Approximate), Expires: 02/13/2023 Start: 12-14-2022 End: 02-13-2023 Comprehensive metabolic 2000 panel - Serum or Plasma COMP METABOLIC PANEL Lab Routine 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) Expected: 12/14/2022 (Approximate), Expires: 02/13/2023 [facility] Work Phone: Comment on above: Expected: 12/14/2022 (Approximate), Expires: 02/13/2023 Start: 12-07-2022 End: 02-06-2023 CBC W Auto Differential panel - Blood CBC + DIFF Lab Routine 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) Expected: 12/07/2022, Expires: 02/06/2023 [facility] Work Phone: Comment on above: Expected: 12/07/2022 , Expires: 02/06/2023 Start: 12-05-2022 End: 02-04-2023 Cancer Ag 19-9 [Units/volume] in Serum or Plasma CA 19-9 BLD Lab Routine 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) Anemia, unspecified type Type 2 diabetes mellitus without complication, with long-term current use of insulin (HCC) Expected: 12/05/2022, Expires: 02/04/2023 [facility] Work Phone: Comment on above: Expected: 12/05/2022 , Expires: 02/04/2023 Start: 12-05-2022 End: 02-04-2023 CBC W Auto Differential panel - Blood [facility] Work Phone: Comment on above: Expected: 12/05/2022 , Expires: 02/04/2023 Start: 12-05-2022 End: 02-04-2023 Comprehensive metabolic 2000 panel - Serum or Plasma COMP METABOLIC PANEL Lab Routine 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) Anemia, unspecified type Type 2 diabetes mellitus without complication, with long-term current use of insulin (HCC) Expected: 12/05/2022, Expires: 02/04/2023 [facility] Work Phone: Comment on above: Expected: 12/05/2022 , Expires: 02/04/2023 Start: 11-23-2022 End: 01-23-2023 CBC W Auto Differential panel - Blood CBC + DIFF Lab Routine 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) Expected: 11/23/2022, Expires: 01/23/2023 [facility] Work Phone: Comment on above: Expected: 11/23/2022 , Expires: 01/23/2023 Start: 11-23-2022 End: 01-23-2023 Comprehensive metabolic 2000 panel - Serum or Plasma COMP METABOLIC PANEL Lab Routine 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) Expected: 11/23/2022, Expires: 01/23/2023 [facility] Work Phone: Comment on above: Expected: 11/23/2022 , Expires: 01/23/2023 Start: 11-10-2022 End: 01-10-2023 Cancer Ag 19-9 [Units/volume] in Serum or Plasma [facility] Work Phone: Comment on above: Expected: 11/10/2022 (Approximate), Expires: 01/10/2023 Start: 11-10-2022 End: 01-10-2023 CBC W Auto Differential panel - Blood CBC + DIFF Lab Routine 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) Expected: 11/10/2022 (Approximate), Expires: 01/10/2023 [facility] Work Phone: Comment on above: Expected: 11/10/2022 (Approximate), Expires: 01/10/2023 Start: 11-10-2022 End: 01-10-2023 Comprehensive metabolic 2000 panel - Serum or Plasma COMP METABOLIC PANEL Lab Routine 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) Expected: 11/10/2022 (Approximate), Expires: 01/10/2023 [facility] Work Phone: Comment on above: Expected: 11/10/2022 (Approximate), Expires: 01/10/2023 Start: 11-10-2022 End: 10-29-2023 Ct abdomen & pelvis w/contrast material CT ABD/PEL W IVCON Radiology Routine 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) Expected: 11/10/2022 (Approximate), Expires: 10/29/2023 [facility] Work Phone: Comment on above: Expected: 11/10/2022 (Approximate), Expires: 10/29/2023 Start: 11-10-2022 End: 10-29-2023 CT CHEST W IVCON CT CHEST W IVCON Radiology Routine 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) Expected: 11/10/2022 (Approximate), Expires: 10/29/2023 [facility] Work Phone: Comment on above: Expected: 11/10/2022 (Approximate), Expires: 10/29/2023 Start: 09-13-2022 End: 11-13-2022 Cancer Ag 19-9 [Units/volume] in Serum or Plasma CA 19-9 BLD Lab Routine 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) Expected: 09/13/2022 (Approximate), Expires: 11/13/2022 [facility] Work Phone: Comment on above: Expected: 09/13/2022 (Approximate), Expires: 11/13/2022 Start: 09-13-2022 End: 11-13-2022 CBC W Auto Differential panel - Blood CBC + DIFF Lab Routine 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) Expected: 09/13/2022 (Approximate), Expires: 11/13/2022 [facility] Work Phone: Comment on above: Expected: 09/13/2022 (Approximate), Expires: 11/13/2022 Start: 09-13-2022 End: 11-13-2022 Comprehensive metabolic 2000 panel - Serum or Plasma COMP METABOLIC PANEL Lab Routine 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) Expected: 09/13/2022 (Approximate), Expires: 11/13/2022 [facility] Work Phone: Comment on above: Expected: 09/13/2022 (Approximate), Expires: 11/13/2022 Start: 08-03-2022 End: 10-03-2022 Cancer Ag 19-9 [Units/volume] in Serum or Plasma CA 19-9 BLD Lab Routine 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) Expected: 08/03/2022 (Approximate), Expires: 10/03/2022 [facility] Work Phone: Comment on above: Expected: 08/03/2022 (Approximate), Expires: 10/03/2022 Start: 08-03-2022 End: 10-03-2022 CBC W Auto Differential panel - Blood CBC + DIFF Lab Routine 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) Expected: 08/03/2022 (Approximate), Expires: 10/03/2022 [facility] Work Phone: Comment on above: Expected: 08/03/2022 (Approximate), Expires: 10/03/2022 Start: 08-03-2022 End: 10-03-2022 Comprehensive metabolic 2000 panel - Serum or Plasma COMP METABOLIC PANEL Lab Routine 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) Expected: 08/03/2022 (Approximate), Expires: 10/03/2022 [facility] Work Phone: Comment on above: Expected: 08/03/2022 (Approximate), Expires: 10/03/2022 Start: 08-03-2022 End: 07-29-2023 Ct abdomen & pelvis w/contrast material CT ABD/PEL W IVCON Radiology Routine 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) Expected: 08/03/2022, Expires: 07/29/2023 [facility] Work Phone: Comment on above: Expected: 08/03/2022 , Expires: 07/29/2023 Start: 08-03-2022 End: 07-29-2023 CT CHEST W IVCON CT CHEST W IVCON Radiology Routine 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) Expected: 08/03/2022, Expires: 07/29/2023 [facility] Work Phone: Comment on above: Expected: 08/03/2022 , Expires: 07/29/2023 Start: 06-01-2022 End: 08-01-2022 Cancer Ag 19-9 [Units/volume] in Serum or Plasma [facility] Work Phone: Comment on above: Expected: 06/01/2022 (Approximate), Expires: 08/01/2022 Start: 06-01-2022 End: 08-01-2022 CBC W Auto Differential panel - Blood CBC + DIFF Lab Routine 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) Expected: 06/01/2022 (Approximate), Expires: 08/01/2022 [facility] Work Phone: Comment on above: Expected: 06/01/2022 (Approximate), Expires: 08/01/2022 Start: 06-01-2022 End: 08-01-2022 Comprehensive metabolic 2000 panel - Serum or Plasma COMP METABOLIC PANEL Lab Routine 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) Expected: 06/01/2022 (Approximate), Expires: 08/01/2022 [facility] Work Phone: Comment on above: Expected: 06/01/2022 (Approximate), Expires: 08/01/2022 Start: 06-01-2022 End: 06-10-2023 Ct abdomen & pelvis w/contrast material CT ABD/PEL W IVCON Radiology Routine 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) Expected: 06/01/2022, Expires: 06/10/2023 [facility] Work Phone: Comment on above: Expected: 06/01/2022 , Expires: 06/10/2023 Start: 06-01-2022 End: 06-10-2023 CT CHEST W IVCON CT CHEST W IVCON Radiology Routine 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) Expected: 06/01/2022, Expires: 06/10/2023 [facility] Work Phone: Comment on above: Expected: 06/01/2022 , Expires: 06/10/2023 Start: 05-22-2022 ADVANCE DIRECTIVE DISCUSSION ADVANCE DIRECTIVE DISCUSSION [facility] Start: 05-22-2022 DEPRESSION ASSESSMENT DEPRESSION ASS ESSMENT [facility] Start: 05-13-2022 End: 07-13-2022 Cancer Ag 19-9 [Units/volume] in Serum or Plasma CA 19-9 BLD Lab Routine 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) Anemia, unspecified type Expected: 05/13/2022, Expires: 07/13/2022 [facility] Work Phone: Comment on above: Expected: 05/13/2022 , Expires: 07/13/2022 Start: 05-13-2022 End: 07-13-2022 CBC W Auto Differential panel - Blood CBC + DIFF Lab Routine 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) Anemia, unspecified type Expected: 05/13/2022, Expires: 07/13/2022 [facility] Work Phone: Comment on above: Expected: 05/13/2022 , Expires: 07/13/2022 Start: 05-13-2022 End: 07-13-2022 Comprehensive metabolic 2000 panel - Serum or Plasma COMP METABOLIC PANEL Lab Routine 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) Anemia, unspecified type Expected: 05/13/2022, Expires: 07/13/2022 [facility] Work Phone: Comment on above: Expected: 05/13/2022 , Expires: 07/13/2022 Start: 05-11-2022 End: 07-11-2022 CREATININE BLD CREATININE BLD Lab Routine 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) Expected: 05/11/2022, Expires: 07/11/2022 [facility] Work Phone: Comment on above: Expected: 05/11/2022 , Expires: 07/11/2022 Start: 04-06-2022 End: 06-06-2022 Cancer Ag 19-9 [Units/volume] in Serum or Plasma CA 19-9 BLD Lab Routine 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) Expected: 04/06/2022, Expires: 06/06/2022 [facility] Work Phone: Comment on above: Expected: 04/06/2022 , Expires: 06/06/2022 Start: 04-06-2022 End: 06-06-2022 CBC W Auto Differential panel - Blood [facility] Work Phone: Comment on above: Expected: 04/06/2022 , Expires: 06/06/2022 Start: 04-06-2022 End: 06-06-2022 Comprehensive metabolic 2000 panel - Serum or Plasma COMP METABOLIC PANEL Lab Routine 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) Expected: 04/06/2022, Expires: 06/06/2022 [facility] Work Phone: Comment on above: Expected: 04/06/2022 , Expires: 06/06/2022 Start: 03-30-2022 End: 05-30-2022 Cancer Ag 19-9 [Units/volume] in Serum or Plasma [facility] Work Phone: Comment on above: Expected: 03/30/2022 , Expires: 05/30/2022 Start: 03-30-2022 End: 05-30-2022 CBC W Auto Differential panel - Blood CBC + DIFF Lab Routine 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) Expected: 03/30/2022, Expires: 05/30/2022 [facility] Work Phone: Comment on above: Expected: 03/30/2022 , Expires: 05/30/2022 Start: 03-30-2022 End: 05-30-2022 Cobalamin (Vitamin B12) [Mass/volume] in Serum or Plasma [facility] Work Phone: Comment on above: Expected: 03/30/2022 , Expires: 05/30/2022 Start: 03-30-2022 End: 05-30-2022 Comprehensive metabolic 2000 panel - Serum or Plasma COMP METABOLIC PANEL Lab Routine 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) Expected: 03/30/2022, Expires: 05/30/2022 [facility] Work Phone: Comment on above: Expected: 03/30/2022 , Expires: 05/30/2022 Start: 03-23-2022 End: 05-23-2022 CBC W Auto Differential panel - Blood CBC + DIFF Lab Routine 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) Expected: 03/23/2022 (Approximate), Expires: 05/23/2022 [facility] Work Phone: Comment on above: Expected: 03/23/2022 (Approximate), Expires: 05/23/2022 Start: 03-23-2022 End: 05-23-2022 Comprehensive metabolic 2000 panel - Serum or Plasma COMP METABOLIC PANEL Lab Routine 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) Expected: 03/23/2022 (Approximate), Expires: 05/23/2022 [facility] Work Phone: Comment on above: Expected: 03/23/2022 (Approximate), Expires: 05/23/2022 Start: 03-16-2022 End: 05-16-2022 CBC W Auto Differential panel - Blood CBC + DIFF Lab Routine 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) Expected: 03/16/2022 (Approximate), Expires: 05/16/2022 [facility] Work Phone: Comment on above: Expected: 03/16/2022 (Approximate), Expires: 05/16/2022 Start: 03-16-2022 End: 05-16-2022 Comprehensive metabolic 2000 panel - Serum or Plasma COMP METABOLIC PANEL Lab Routine 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) Expected: 03/16/2022 (Approximate), Expires: 05/16/2022 [facility] Work Phone: Comment on above: Expected: 03/16/2022 (Approximate), Expires: 05/16/2022 Start: 03-16-2022 End: 05-16-2022 Ferritin [Mass/volume] in Serum or Plasma [facility] Work Phone: Comment on above: Expected: 03/16/2022 , Expires: 05/16/2022 Start: 03-16-2022 End: 05-16-2022 Folate [Mass/volume] in Serum or Plasma [facility] Work Phone: Comment on above: Expected: 03/16/2022 , Expires: 05/16/2022 Start: 03-16-2022 End: 05-16-2022 Iron and Iron binding capacity panel - Serum or Plasma [facility] Work Phone: Comment on above: Expected: 03/16/2022 , Expires: 05/16/2022 Start: 03-16-2022 End: 05-16-2022 MISC SEND OUT TST 1 [facility] Work Phone: Comment on above: Expected: 03/16/2022 , Expires: 05/16/2022 Start: 03-08-2022 End: 05-08-2022 Cancer Ag 19-9 [Units/volume] in Serum or Plasma CA 19-9 BLD Lab Routine 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) Expected: 03/08/2022 (Approximate), Expires: 05/08/2022 [facility] Work Phone: Comment on above: Expected: 03/08/2022 (Approximate), Expires: 05/08/2022 Start: 03-08-2022 End: 05-08-2022 CBC W Auto Differential panel - Blood CBC + DIFF Lab Routine 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) Expected: 03/08/2022 (Approximate), Expires: 05/08/2022 [facility] Work Phone: Comment on above: Expected: 03/08/2022 (Approximate), Expires: 05/08/2022 Start: 03-08-2022 End: 05-08-2022 Comprehensive metabolic 2000 panel - Serum or Plasma COMP METABOLIC PANEL Lab Routine 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) Expected: 03/08/2022 (Approximate), Expires: 05/08/2022 [facility] Work Phone: Comment on above: Expected: 03/08/2022 (Approximate), Expires: 05/08/2022 Start: 03-08-2022 End: 05-08-2022 MISC SEND OUT TST 1 MISC SEND OUT TST 1 Lab Routine 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) Expected: 03/08/2022 (Approximate), Expires: 05/08/2022 [facility] Work Phone: Comment on above: Expected: 03/08/2022 (Approximate), Expires: 05/08/2022 Start: 03-01-2022 End: 03-24-2023 CT CHEST W IVCON CT CHEST W IVCON Radiology Routine 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) Expected: 03/01/2022, Expires: 03/24/2023 [facility] Work Phone: Comment on above: Expected: 03/01/2022 , Expires: 03/24/2023 Start: 02-23-2022 End: 04-25-2022 PT panel - Platelet poor plasma by Coagulation assay PROTHROMBIN TIME/PT Lab Routine Malignant neoplasm of pancreas, unspecified location of malignancy (HCC) Expected: 02/23/2022, Expires: 04/25/2022 [facility] Work Phone: Comment on above: Expected: 02/23/2022 , Expires: 04/25/2022 Start: 01-20-2022 Influenza vaccination C [facility] Start: 12-04-2021 Colonoscopy COLONOSCOPY [facility] Start: 12-04-2021 COLORECTAL CANCER SCREENING COLORECTAL CANCER SCREENING [facility] Start: 12-04-2021 Screening for malign ant neoplasm of colon [facility] Start: 05-22-2021 ADVANCE DIRECTIVE DISCUSSION ADVANCE DIRECTIVE DISCUSSION [facility] Start: 05-22-2021 DEPRESSION ASSESSMENT DEPRESSION ASS ESSMENT [facility] Start: 03-06-2021 Influenza vaccination LUNG CANCER SC REENING [facility] Start: 03-02-2021 Urine screening for protein Diabetes: Urine Protein Screening [facility] Start: 02-21-2021 COVID-19 VACCINE (2 - Booster for [place] series) COVID-19 VACCINE (2 - Booster for [place] series) [facility] Start: 01-24-2021 COVID-19 VACCINE (2 - [place] risk series) COVID-19 VACCINE (2 - [place] risk series) [facility] Start: 01-20-2021 Influenza vaccination INFLUENZA (#1) [facility] Start: 11-23-2020 Hepatitis B surface antibody level LDL Cholesterol [facility] Start: 03-23-2020 Annual Wellness Visi t (AWV) Annual Wellness Visit (AWV) [place] Start: 03-18-2020 End: 03-18-2020 Office Visit 03/18/2020 Office Visit Oncology Dwayne Moy MD [address] [place] [address] [facility] Start: 01-21-2020 Influenza vaccination Flu vaccine (# 1) [place] Start: 2016 Pneumococcal 65+ yea rs Vaccine (1 of 1 - PPSV23) Pneumococcal 65+ years Vaccine (1 of 1 - PPSV23) [place] Start: 2016 PNEUMOCOCCAL: 65+ (1 - PCV) PNEUMOCOCCAL: 65+ (1 - PCV) [facility] Start: 2016 PNEUMOVAX AGE 65 AND OVER WITH 5YR LOOKBACK (#1) PNEUMOVAX AGE 65 AND OVER WITH 5YR LOOKBACK (#1) [facility] Start: 2011 RSV Vaccine (1 - 1-d ose 60+ series) RSV Vaccine (1 - 1-dose 60+ series) [facility] Start: 2001 Screening for malign ant neoplasm of colon Colon cancer screen colonoscopy [place] Start: 2001 Shingles Vaccine (1 of 2) Shingles Vaccine (1 of 2) [place] Start: 2001 SHINGRIX VACCINE (1 of 2) SHINGRIX VACCINE (1 of 2) [facility] Start: 1996 COLOGUARD (FIT-DNA) COLOGUARD (FIT-D NA) [facility] Start: [address] COLONOGRAPHY [facility] Start: 1996 FECAL OCCULT BLOOD FECAL OCCULT BLOO D [facility] Start: 1996 Screening for malign ant neoplasm of colon [facility] Start: 1996 SIGMOIDOSCOPY SIGMOIDOSCOPY [facility] Start: 1991 Diabetes screen Diabetes screen [place], [place] Start: 1991 Lipid panel Lipid screen [place], [place] Start: 1970 DTaP/Tdap/Td vaccine (1 - Tdap) DTaP/Tdap/Td vaccine (1 - Tdap) [place] Start: 1970 SHINGRIX VACCINE (1 of 2) SHINGRIX VACCINE (1 of 2) [facility] Start: 1970 Urine microalbumin profile DTAP,TDAP,TD (1 - Tdap) [facility] Start: 1969 Annual PCP Team Cpa Tax jace Disease Visit Annual PCP Team Chronic Disease Visit [facility] Start: 1969 HEPATITIS C SCREENING HEPATITIS C [facility] Start: 1969 Hepatitis C screening Hepatitis C [facility] Start: 1963 Adult depression screening assessment DEPRESSION SCREENING [facility] Start: 1961 Diabetic foot examination Diabetic Foot Exam [facility] Start: 1961 Glaucoma screening [facility] Start: 1961 Hepatitis B screening Urine Albumin:Creatinine Ratio [facility] Start: 1957 Pneumococcal Vaccine : 65+ (1 - PCV) Pneumococcal Vaccine: 65+ (1 - PCV) [facility] Start: 1957 Pneumococcal Vaccine : 65+ (1 of 2 - PCV) Pneumococcal Vaccine: 65+ (1 of 2 - PCV) [facility] Start: 1957 PNEUMOCOCCAL: 65+ (1 - PCV) PNEUMOCOCCAL: 65+ (1 - PCV) [facility] Start: 1951 Abdominal aortic aneurysm screening [facility] Start: 1951 ABDOMINAL AORTIC ANEURYSM SCREENING ABDOMINAL AORTIC ANEURYSM SCREENING [facility] Start: 1951 Hepatitis C screening Hepatitis C [place], [place] Start: 1951 Screening for malign ant neoplasm of colon [facility] Cancer Ag 19-9 [Units/volume] in Serum or Plasma CA 19-9 BLD Lab Routine 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) 04/20/2022 9:46 AM [facility] Work Phone: Cancer Ag 19-9 [Units/volume] in Serum or Plasma CA 19-9 BLD Lab Routine 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) Anemia, unspecified type 05/11/2022 8:59 AM [facility] Work Phone: Cancer Ag 19-9 [Units/volume] in Serum or Plasma CA 19-9 BLD Lab Routine 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) 06/29/2022 10:17 AM [facility] Work Phone: Cancer Ag 19-9 [Units/volume] in Serum or Plasma CA 19-9 BLD Lab Routine 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) 08/02/2022 10:21 AM [facility] Work Phone: Cancer Ag 19-9 [Units/volume] in Serum or Plasma CA 19-9 BLD Lab Routine 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) 09/29/2022 10:18 AM [facility] Work Phone: Cancer Ag 19-9 [Units/volume] in Serum or Plasma CA 19-9 BLD Lab Routine 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) 02/01/2023 11:18 AM [facility] Work Phone: Cancer Ag 19-9 [Units/volume] in Serum or Plasma CA 19-9 BLD Lab Routine 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) Type 2 diabetes mellitus without complication, with long-term current use of insulin (HCC) LINDSEY (dyspnea on exertion) 04/05/2023 1:44 PM [facility] Work Phone: Cancer Ag 19-9 [Units/volume] in Serum or Plasma CA 19-9 BLD Lab Routine Type 2 diabetes mellitus without complication, with long-term current use of insulin (HCC) Severe protein-calorie malnutrition (HCC) 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) Anemia, unspecified type 05/05/2023 1:13 PM [facility] [address] Work Phone: Cancer Ag 19-9 [Units/volume] in Serum or Plasma CA 19-9 BLD Lab Routine 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) 07/05/2023 10:33 AM [facility] [address] Work Phone: Cancer Ag 19-9 [Units/volume] in Serum or Plasma CA 19-9 BLD Lab Routine 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) Type 2 diabetes mellitus without complication, with long-term current use of insulin (HCC) Neuropathy Severe protein-calorie malnutrition (HCC) 08/02/2023 10:23 AM [facility] Work [facility]: Cancer Ag 19-9 [Units/volume] in Serum or Plasma CA 19-9 BLD Lab Routine 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) 08/23/2023 10:51 AM [facility] Work Phone: Cancer Ag 19-9 [Units/volume] in Serum or Plasma CA 19-9 Lab Routine 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) Neuropathy 10/03/2023 11:18 [facility] [address] Work Phone: Clostridioides diffi cile toxin genes [Presence] in Stool by MIRTHA with probe detection C. DIFFICILE PCR Lab Routine 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) Diarrhea, unspecified type Ordered: 03/07/2022 [facility] Work Phone: Comment on above: Ordered: 03/07/2022 End: 01-20-2024 CT CHEST W IVCON PE CT CHEST W IVCON PE Radiology STAT Chest pain, unspecified type LINDSEY (dyspnea on exertion) 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) Anemia, unspecified type Type 2 diabetes mellitus without complication, with long-term current use of insulin (HCC) 1 Occurrences starting 12/21/2022 until 01/20/2024 [facility] Work Phone: Comment on above: 1 Occurrences starti ng 12/21/2022 until 01/20/2024 IR PORTOCATH PLACEMENT IR PORTOC ATH PLACEMENT Radiology Routine 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) Ordered: 02/22/2022 [facility] Work Phone: Comment on above: Ordered: 02/22/2022 Patient Education Head injury in adults [facility] Work Phone: Patient referral [facility] Work Phone: REFERRAL FOR ADDITIO NAL BIOMARKER AND MOLECULAR TESTING REFERRAL FOR ADDITIONAL BIOMARKER AND MOLECULAR TESTING Lab Routine 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) 02/27/2022 10:40 PM EDT [facility] Work Phone: UA DIP, URINE (POC) UA DIP, URIN E (POC) Lab Routine 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) Frequency of urination Ordered: 10/11/2023 [facility] Comment on above: Ordered: 10/11/2023 End: 10-02-2024 US Lower extremity veins - bilateral US LEG VEIN DVT [facility] Vascular Lab STAT Leg swelling 1 Occurrences starting 10/03/2023 until 10/02/2024 [facility] Comment on above: 1 Occurrences starti ng 10/03/2023 until 10/02/2024 [facility] Immunizations Immunization Date Immunization Notes Care Provider Fa cility 12-15-2022 tetanus toxoid, redu pascual diphtheria toxoid, and acellular pertussis vaccine, adsorbed II Giovanni Salinas Work Phone: [facility] 12-27-2020 COVID-19 vaccine ([place]) Eyad Manriquez MD Work Phone: [facility] Payers Date Payer Category Payer Self-pay [id number] 2019 Private Health Insurance AET[employer] A ETNA MEDICARE SUPPLEMENT [id number] 2019-Present [phone] [address] [address] [place] [address] Indemnity [id number] 2019 Private Health Insurance AET[employer] A ETNA MEDICARE SUPPLEMENT [id number] 2019-Present [phone] [address] [address] [place] [address] Indemnity [id number] 2016 Medicare MEDICARE MEDICAR E A AND B [id number] 2016-Present [phone] [address] [address] [place] [address] Medicare [id number] 2016 Medicare [id number] 1959 Medicare [id number] 1959 Private Health Insurance CLI [id number] .[id number] 1951 Unknown [id number] 2.16.840.1.384993.3.579 .2.173 1951 Unknown [id number] 2.16.840.1.798096.3.579 .2.173 1951 Unknown [id number] 2.16.840.1.403866.3.579 .2.593 1951 Unknown [id number] 2.16.840.1.829034.3.579 .2.593 1951 Unknown [id number] 2.16.840.1.654600.3.579 .2.593 1951 Unknown [id number] 2.16.840.1.561103.3.579 .2.593 1951 Unknown [id number] 2.16.840.1.800492.3.579 .2.593 1951 Unknown [id number] 2.16.840.1.497794.3.579 .2.593 1951 Unknown [id number] 2.16.840.1.744795.3.579 .2.593 1951 Unknown [id number] 2.16.840.1.503378.3.579 .2.593 1951 Unknown [id number] 2.16.840.1.774548.3.579 .2.593 1951 Unknown [id number] 2.16.840.1.047888.3.579 .2.593 1951 Unknown [id number] 2.16.840.1.508090.3.579 .2.593 1951 Unknown [id number] 2.16.840.1.223920.3.579 .2.593 1951 Unknown [id number] 2.16.840.1.912757.3.579 .2.593 1951 Unknown [id number] 2.16.840.1.574847.3.579 .2.593 1951 Unknown [id number] 2.16.840.1.642034.3.579 .2.1259 Unknown [id number] 2.16.840.1.727376.3.579 .2.531 Social History Date Type Detail Facility Start: 03-09-2020 Tobacco smoking stat [facility] Unknown if ever smoked [place], [place] Start: 1950 Sex Assigned At Not on file [place] Start: 03-18-2020 End: 03-09-2022 Tobacco smoking status NHIS Former smoker [facility] Start: 03-18-1977 End: 11-20-2019 History of tobacco use Current smoker [place] Start: 03-18-1977 End: 11-20-2019 History of tobacco use Cigarette Sm[place] Start: 03-18-2020 End: 10-11-2023 Alcohol intake Ex-drinker (finding) [facility] Zayda Y Start: 05-08-2020 End: 09-29-2022 Cigarettes smoked current (pack per day) - Reported 1 [facility] Start: 05-08-2020 End: 03-09-2022 Tobacco use and exposure Smokeless tobacco non-user [facility] Start: 03-24-2020 History SDOH Financial 5 [facility] Start: 03-24-2020 History SDOH Food Worry 1 [facility] Start: 03-24-2020 History SDOH Transpo rt Med 2 [facility] Start: 1950 Sex Assigned At Male C [facility] Start: 02-08-2022 End: 04-20-2022 Exposure to SARS-CoV-2 (event) Not sure [facility] History of tobacco use Passive smoker [facility] Start: 09-29-2022 End: 11-10-2022 Tobacco use panel [facility] How hard is it for y ou to pay for the very basics like food, housing, medical care, and heating Not hard at all [facility] (I/We) worried wheth er (my/our) food would run out before (I/we) got money to buy more. Never true [facility] Start: 01-13-2021 Gender identity Identifies as male gender (finding) [facility] Medical Equipment Procedure Code Equipment Code Equipment Origin al Text Equipment Identifier Dates [id number] Start: 10-26-2022 Comment on above: use to test BLOOD MCCARTHY GAR TWICE DAILY INJECT ONCE DAILY Tray Powerline Surecuff 5fr Polyurethane Catheter 1 Lumen Microintroducer - [id number] Start: 03-30-2020 Tray Powerline Surecuff 5fr Polyurethane Catheter 1 Lumen Microintroducer - [id number] Start: 12-15-2020 Mesh Surgipro Me dium Clear Polypropylene 2cm Surgical Nonabsorbable Plug - [id number] Start: 01-06-2021 Stent Darwin Viabi l 8mm Metal 80mm 200cm Endoprosthesis No Hole Full Cover - [id number] Start: 2021 [id number] Start: 03-02-2022 Comment on above: Description: Port in serted at [facility] AV IR; Saline only flushes 1 each by Other route in the morning and 1 each before bedtime. [id number] Start: 12-02-2022 Use as instructed [id number] Start: 11-17-2022 End: 11-17-2023 Clinical Notes 03-09-2020 to 10-11-2023 Samina Rae MA - 10/11/2023 1:27 PM Samina Smiley MA - 10/11/2023 9:30 AM Greta Gonzáles PA-C - 10/11/2023 9:30 AM Samina Smiley MA - 10/11/2023 9:30 AM EDT Note Date & Type Note Facility 10-11-2023 Note HNO ID: [id number] Author: SAMINA RAE MA Service: ? Author Type: Relay Assembler Type: Progress Notes Filed: 10/11/2023 13:27 Note Text: Back office UA test performed. Results entered in [email or web address] and doctor notified. Samina Rae MA [facility] 10-11-2023 History of Present illness Narrative Back office UA test performed. Results entered in [email or web address] and doctor notified. Samina Rae MA documented in this encounter [facility] 10-11-[address] [facility] 10-11-2023 Nurse Note Pt complaints of fatigue and weakness today. Samina Rae MA [facility] 10-11-2023 History of Present illness Narrative PATIENT NAME: Uriel Anderson [facility] NO.: [id number] ATTENDING PHYSICIAN: Grace Bess MD DATE OF SERVICE: October 11, 2023 (Elements copied from my note dated October 03, 2023, have been reviewed and updated where appropriate, and all reflect current assessment and medical decision making during today's encounter, October 11, 2023) CC: Follow up Diagnosis: 1. T3, N2, M0 pancreatic cancer. Tumor is 8.1 cm, moderately differentiated adenocarcinoma, tumor invades duodenal wall, peripancreatic soft tissue. Margins were negative. Lymphovascular space invasion was present, perineural invasion was present. Metastatic disease in 7 of 27 lymph nodes. 2. NGS Tissue Based: KRAS [id number], EGFR amplified and RAC 1 Amplified , GIBRAN and TMB low. Liquid Based 03/2022: KRAS, APC and RON mutation as well. Treatment History: Germline Testing: Negative 1. Diagnostic laparoscopy, pancreaticoduodenectomy, hepaticojejunostomy, pancreatico jejunostomy and gastrojejunostomy on December 04, 2019. Operative findings very bulky pancreatic head mass with significant adenopathy. Large SMA lymph node which appeared to be right at the onset of margin and was completed dissected off the SMA. 2. Post op complication and did not receive adjuvant chemo. 3. 04/2021: Successful sphincterotomy and dilation of pancreaticojejunostomy stricture and placement of an 8mm covered stent. 4. CT 01/2022- Recurrence. 5. [place] and Abraxane 03/16/2022-05/11/2022 (Elected to stop chemo). 6. Resumed [place] and Abraxane 11/23/2022- 12/14/2022- Stopped due to poor tolerance. 7. Restarted [place] and Abraxane dose reduced, 2 week on and 2 weeks off 02/01/2023, Worsening Neuropathy and Abraxane stopped 05/05/2023- CT 04/2023 with progressive disease. 8. JULIA 06/07/2023. HPI: Uriel returns for follow up. His treatment was held last week due to new symptoms of swelling and cough. His dopplers were negative for DVT and his chest xray was negative was well. He finished his antibiotic. He is feeling better and would like to resume treatment. PAST MEDICAL HISTORY Diagnosis Date Acute bilateral deep vein thrombosis (DVT) of upper extremities (HCC) Adenocarcinoma of head of pancreas (HCC) Diabetes mellitus due to underlying condition with diabetic polyneuropathy, without long-term current use of insulin (HCC) 06/07/2023 Gastric outlet obstruction Obstructive sleep apnea Social History Tobacco Use Smoking status: Former Packs/day: 1.00 Years: 35.00 Additional pack years: 0.00 Total pack years: 35.00 Types: Cigarettes Quit date: 2019 Years since quittin.3 Passive exposure: Past Smokeless tobacco: Never Vaping Use Vaping Use: Never used Substance Use Topics Alcohol use: Not Currently Drug use: Never FAMILY HISTORY Problem Relation Age of Onset Anesthesia Problems No Family History Past medical, social and family history reviewed without any changes. REVIEW OF SYSTEMS General: No weight loss, malaise or fevers. No night sweats. Positive fatigue. HEENT: Negative for headaches, No changes in hearing or vision, no nose bleeds or other nasal problems. Respiratory: Negative for wheezing and shortness of breath. Cough resolved Cardiovascular: Negative for chest pain, and palpitations. +bilateral leg swelling--improved GI: Negative for abdominal discomfort, blood in stools or black stools and change in bowel habits. Constipation. : Negative for dysuria, frequency and incontinence. Musculoskeletal: Negative for joint pain or swelling, back pain and muscle pain. Skin: Negative for lesions, rash and itching. Hematology/Lymphology: Negative for prolonged bleeding, bruising easily, and swollen nodes. PHYSICAL EXAMINATION: BP 85/56 Pulse 87 Temp (Src) 98 (Temporal) Resp 16 Ht 5' 6.811 (1.70m) Wt 155 lb 6.8 oz (70.5kg) SpO2 100% BMI 24.48 kg/(m^2). General appearance:ECOG PERFORMANCE STATUS: 1- Restricted in physically strenuous activity. Carries out light duty. Patient in NAD. General: Alert and oriented, no distress, pleasant and cooperative. Sad appearing Heart: Regular, normal S1 and S2, no murmurs, rubs, or gallops Lungs: Clear to auscultation bilaterally, nonlabored breathing Abdomen: Benign Extremities: 1+ ankle edema b/l, posterior tibial pulses full and symmetrical LABS: Glucose (mg/dL) Date Value 10/03/2023 167 02/11/2021 104 Potassium (mmol/L) Date Value 10/03/2023 4.3 02/11/2021 4.0 Sodium (mmol/L) Date Value 10/03/2023 135 02/11/2021 139 Chloride (mmol/L) Date Value 10/03/2023 100 02/11/2021 105 CO2 (mmol/L) Date Value 10/03/2023 27 02/11/2021 25 Creatinine (mg/dL) Date Value 10/03/2023 0.83 02/11/2021 0.49 BUN (mg/dL) Date Value 10/03/2023 13 02/11/2021 6 Anion Gap (mmol/L) Date Value 10/03/2023 8 02/11/2021 9 Calcium (mg/dL) Date Value 02/11/2021 9.5 Calcium, Total (mg/dL) Date Value 10/03/2023 10.4 Protein, Total (g/dL) Date Value 10/03/2023 6.9 02/11/2021 5.5 Albumin (g/dL) Date Value 10/03/2023 3.0 02/11/2021 2.5 Bilirubin, Total (mg/dL) Date Value 10/03/2023 0.6 02/11/2021 0.5 Alkaline Phosphatase (U/L) Date Value 10/03/2023 110 02/11/2021 84 AST (U/L) Date Value 10/03/2023 11 02/11/2021 10 ALT (U/L) Date Value 10/03/2023 10 02/11/2021 9 WBC Date Value Ref Range Status 10/11/2023 10.02 3.70 - 11.00 k/uL Final RBC Date Value Ref Range Status 10/11/2023 3.18 (L) 4.20 - 6.00 m/uL Final Hemoglobin Date Value Ref Range Status 10/11/2023 9.6 (L) 13.0 - 17.0 g/dL Final Hematocrit Date Value Ref Range Status 10/11/2023 29.5 (L) 39.0 - 51.0 % Final MCV Date Value Ref Range Status 10/11/2023 92.8 80.0 - 100.0 fL Final MCH Date Value Ref Range Status 10/11/2023 30.2 26.0 - 34.0 pg Final MCHC Date Value Ref Range Status 10/11/2023 32.5 30.5 - 36.0 g/dL Final RDW-CV Date Value Ref Range Status 10/11/2023 15.2 (H) 11.5 - 15.0 % Final Platelet Count Date Value Ref Range Status 10/11/2023 196 150 - 400 k/uL Final MPV Date Value Ref Range Status 10/11/2023 10.0 9.0 - 12.7 fL Final Abs Neut Date Value Ref Range Status 10/11/2023 7.54 (H) 1.45 - 7.50 k/uL Final Lymphocytes % Date Value Ref Range Status 10/11/2023 15.3 % Final Abs Lymph Date Value Ref Range Status 10/11/2023 1.53 1.00 - 4.00 k/uL Final Monocytes % Date Value Ref Range Status 10/11/2023 7.7 % Final Abs [place] Date Value Ref Range Status 10/11/2023 0.77 <0.87 k/uL Final Eosin% Date Value Ref Range Status 12/05/2022 0.9 % Final Abs Eosin Date Value Ref Range Status 10/11/2023 <0.03 <0.46 k/uL Final Basophils % Date Value Ref Range Status 10/11/2023 0.4 % Final Abs Baso Date Value Ref Range Status 10/11/2023 0.04 <0.11 k/uL Final PATH: Whipple on November: SYNOPTIC REPORT OF MANJARREZ PATHOLOGIC FINDINGS WHIPPLE, GALLBLADER, OMENTUM: PANCREAS EXOCRINE WORKSHEET Specimen: Head of pancreas Body of pancreas Duodenum Stomach Common bile duct Gallbladder Procedure: Pancreaticoduodenectomy (Whipple resection), partial pancreatectomy Tumor Site: Pancreatic head Histologic Type: Ductal adenocarcinoma (NOS) Histologic Grade: G2: Moderately differentiated Tumor Size: Greatest dimension: 8.1 cm Microscopic Tumor Extension: Tumor invades duodenal wall Tumor invades peripancreatic soft tissues Tumor invades posterior surface of pancreas Tissue Specimen Type: Pancreaticoduodenal Resection Specimen Margins for Pancreaticoduodenal Resection Specimen: Pancreatic neck/parenchymal margin uninvolved by pancreatic high-grade intraepithelial neoplasia or invasive carcinoma Uncinate (retroperitoneal/superior mesentric artery) margin cannot be assessed Bile duct margin uninvolved by high-grade intraepithelial neoplasia or invasive carcinoma Proximal margin (Gastric or Duodenal) uninvolved by high-grade dysplasia or invasive carcinoma Distal margin (Duodenal or Jejunal) uninvolved by high-grade dysplasia or invasive carcinoma Treatment Effect: No known presurgical therapy Lymphovascular Invasion: Present Perineural Invasion: Present Pathologic Stage Classification (pTNM, AJCC 8th ed) TNM Descriptors: Not applicable Primary Tumor (pT): pT3: Tumor >4 cm in greatest dimension Regional lymph nodes (pN): pN2: Metastasis in four or more regional lymph nodes Number of lymph nodes involved: 7 Number of lymph nodes examined: 27 Distant Metastasis (pM): Not applicable/Not confirmed pathologically in this case Comment: Gallbladder with chronic cholecystitis and cholesterolosis. 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 Large fluid collection in the anterior abdominal wall which visualizes to the skin surface. This collection may arise near the pancreaticojejunostomy. 2. No definite findings to suggest metastatic disease in the abdomen or pelvis. 3. Calcifications within the urinary bladder, nonspecific. A urothelial lesion is not excluded. Consider urologic consultation. CT Pancreas 01/2022: 1. Since 03/15/2021, marked increase in central mesenteric and retroperitoneal lymphadenopathy, suspicious for disease progression. 2. 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 3. Unchanged ill-defined soft tissue surrounding the origin of the celiac artery and common hepatic artery, suspicious for recurrent neoplasm. 4. Status post Whipple procedure. A pancreatic duct stent remains in place. No new pancreatic ductal dilatation. 5. Unchanged heterogeneous attenuation of the pelvic marrow, nonspecific but favored to be secondary to marrow reconversion. Continued attention on subsequent studies is suggested. If warranted, consider further assessment with nuclear medicine bone scan. CT of the chest and Abd and Pelvis 05/2022: 1. Stable CT of the chest. Unchanged appearance of left lower lobe 4 mm nodule. No new or enlarging nodules are visualized. 2. Stable appearance of prominent lymph node in the anterior mediastinum. No new bulky intrathoracic adenopathy is seen. 3. Stable findings of prior granulomatous disease 1. Mesenteric and retroperitoneal lymphadenopathy as noted above. The majority of the visualized lymph nodes appear stable, however there is slight interval increase in size of an aortocaval node. Recommend continued follow-up. 2. Stable ill-defined soft tissue density/fat stranding in the origin of the celiac artery which may be on the basis of postsurgical change versus recurrent neoplasm. 3. Stable postsurgical changes in keeping with prior Whipple procedure. No pancreatic ductal dilation or recurrent mass is seen. 4. Previously described ill-defined soft tissue in the ellen hepatis is not well seen on the current study. CT Scan of the Chest and Abdomen and Pelvis 06/2022: 1. New reticulonodular opacities in the right lung, with an upper lung field predominance, most likely infectious/inflammatory in etiology. Consider follow-up to complete resolution. 2. Other subcentimeter nodular opacities measuring up to 7-8 mm, stable since 05/25/22 1. No interval change since 05/25/22. 2. Multiple mesenteric and peritoneal masses/lymphadenopathy, stable CT Scan of the Chest and Abdomen and Pelvis 10/2022: 1. Since 07/27/2022, decrease in right upper lobe tree-in-bud opacities, compatible with resolving infection/inflammation. 2. Additional nonspecific noncalcified pulmonary nodules measuring up to 0.7 cm are unchanged. 3. Unchanged 0.9 cm retrosternal nodule/lymph node. No progressive lymphadenopathy. 1. Since 07/27/2022, unchanged diffuse retroperitoneal and central mesenteric lymphadenopathy. Unchanged metastatic deposit along the anterior right kidney. 2. New geographic regions of hypodensity along the inferior margin of the left hepatic lobe, likely evolving sites of steatosis. Attention on subsequent studies is suggested. CT Scan of the Chest and Abdomen and Pelvis 04/2023: 1. Stable subcentimeter pulmonary nodules. 2. Areas of centrilobular nodularity in the right upper lobe and left lower lobe which could be due to bronchiolitis. Would advise continued attention on follow-up studies and clinical correlation. 3. Stable nonspecific 8 mm nodule in the prevascular space. This is unchanged when compared to multiple prior exams. 1. Worsening metastatic disease when compared to the prior study with worsening retroperitoneal adenopathy as described above. There is also worsening peritoneal carcinomatosis and a worsening subcutaneous nodule along the anterior abdominal wall. 2. Moderate to marked enlargement of the prostate gland. CT Scan of the Chest and Abdomen and Pelvis 07/2023: 1. Stable subcentimeter pulmonary nodules. 2. Stable nonspecific 8 mm nodule or node in the prevascular space. 3. Stable mild centrilobular nodularity with a tree-in-bud distribution in the lateral right upper lobe and left lower lobe. This appearance is most suggestive of bronchiolitis. Would advise continued attention on follow-up exams. 1. Again noted is metastatic disease with multiple enlarged retroperitoneal lymph nodes, peritoneal nodules, and a subcutaneous nodule in the right abdominal wall. Overall, this appears relatively stable. 2. Surgical changes compatible with Whipple procedure. There is stable stranding/infiltrative soft tissue along the common hepatic artery which could be due to infiltrative neoplasm or posttreatment change. 3. Moderate to marked enlargement of the prostate gland. Assessment and Plan: Uriel Anderson is a 73 year old year old male here for follow up and continued treatment. T3, N2, M0, pancreatic adenocarcinoma. Patient with postoperative complications which precluded adjuvant chemo and did have additional admissions and procedures lastly a stent in the PJ stenosis in 04/2021. His CT, 01/2022 with sandy progression and he has recurrence. His initial disease state was very high risk. Post 4 cycles of therapy and with stable disease on CT 05/2022. Discussed the results and he wanted some time off chemo. Reviewed follow up imaging 10/2022 and still stable but he is more symptomatic and rising CA 19-9 and elected to restart [place] and Abraxane 11/23/2022. However, he had a very poor tolerance of therapy and has had decline in QOL. Therapy was held at that time 12/14/2022. Discussed the current status and rising CA 199 and options of no therapy, repeat chemo with dose modifications and or Xeloda. He wants to restart [place] and Abraxane, which he was on 02/01/2023 and dose reduced and have a 2 week on and 2 week off schedule. Slight delay due to Thanksgiving and URI, his neuropathy is worst and the Abraxane was stopped and continued [place]. CT 04/[address] Bess had a lisa discussion with Uriel and and daughter. Discussed hopsice vs. Second line chemo and the toxicities and he wanted to proceed with the JULIA regimen. This was started on June 07, 2023. He appears to be tolerating therapy well, his imaging in July 2023 demonstrated overall stable disease. His treatment was changed to every 3 weeks due to fatigue in August 2023. His treatment was held last week due to cough and leg swelling both of which have improved. Will resume treatment today and return in 3 weeks for the next cycle. Continue nutrition follow up. DM- Follow endocrine. Greta Wetzel PA-C CC: Giovanni Hamlin MD I spent a total of 22 minutes on the date of the service which included preparing to see the patient, [id number] patient care, completing clinical documentation, performing a medically appropriate examination, counseling and educating the patient/family/caregiver, ordering medications, tests, or procedures, independently interpreting results (not separately reported), and communicating results to the patient/family/caregiver. documented in this encounter [facility] 10-11-2023 Nurse Note Pt complaints of fatigue and weakness today. Samina Rae MA documented in this encounter [facility] 10-05-2023 Telephone encounter Note Voicemail has not been set up yet. No way to leave a message. Josephine Salomon RN [facility] Work Phone: 10-05-2023 Miscellaneous Notes Voicemail has not been set up yet. No way to leave a message. Josephine Salomon RN ----- Message from Greta Wetzel PA-C sent at 10/04/2023 12:56 PM EDT ----- Please call with improving ca19-9 documented in this encounter [facility] 10-05-2023 Telephone encounter Note ----- Message from Greta Wetzel PA-C sent at 10/04/2023 12:56 PM EDT ----- Please call with improving ca19-9 [facility] 10-04-2023 Telephone encounter Note Pt's voicemail has not been set up yet. Unable to leave a message. Josephine Salomon RN [facility] Work Phone: 10-04-2023 Miscellaneous Notes Pt's voicemail has not been set up yet. Unable to leave a message. Josephine Salomon RN ----- Message from Greta Wetzel PA-C sent at 10/03/2023 4:09 PM EDT ----- Please call with negative cxr documented in this encounter [facility] 10-04-2023 Telephone encounter Note ----- Message from Greta Wetzel PA-C sent at 10/03/2023 4:09 PM EDT ----- Please call with negative cxr [facility] 10-04-2023 Telephone encounter Note Spoke with pt spouse. She discussed with pt. Legs not as swollen, will hold off for now and call back if needed. Denies further questions, needs or concerns at this time. KOFI Travis RN [facility] 10-04-2023 Miscellaneous Notes Spoke with pt spouse. She discussed with pt. Legs not as swollen, will hold off for now and call back if needed. Denies further questions, needs or concerns at this time. KOFI Travis RN Spoke with spouse, Brittni.aware of negative DVT per US, and MM recommendation. Pt is home, she is driving. She will discuss with him and call tomorrow with decision on Lasix. Key Travis RN Please inform the patient of negative DVT. We could start lasix 20 mg daily for a week and see if it helps the swelling if he wants. Greta Wetzel PA-C [facility] department called with NEGATIVE DVT report. Key Travis RN Patient has been scheduled for STAT US today @ [place] 10/02 between 1 & 1:30 pm. If positive, Radiology will call w/ results. Ora Jones documented in this encounter [facility] 10-03-2023 Telephone encounter Note Spoke with spouse, Brittni.aware of negative DVT per US, and MM recommendation. Pt is home, she is driving. She will discuss with him and call tomorrow with decision on Lasix. Key Travis RN [facility] 10-03-2023 Telephone encounter Note Please inform the patient of negative DVT. We could start lasix 20 mg daily for a week and see if it helps the swelling if he wants. Greta Wetzel PA-C [facility] 10-03-[address] [facility] 10-03-2023 Telephone encounter Note [facility] US department called with NEGATIVE DVT report. Key Travis RN [facility] 10-03-[address] [facility] 10-03-2023 Telephone encounter Note Patient has been scheduled for STAT US today @ [place] 10/02 between 1 & 1:30 pm. If positive, Radiology will call w/ results. Ora Jones [facility] 10-03-2023 History of Present illness Narrative PATIENT NAME: Uriel Anderson [facility] NO[facility] [id number] ATTENDING PHYSICIAN: Grace Bess MD DATE OF SERVICE: October 03, 2023 (Elements copied from Yordy Moncada's note dated September 13, 2023, have been reviewed and updated where appropriate, and all reflect current assessment and medical decision making during today's encounter, October 03, 2023) CC: Follow up Diagnosis: 1. T3, N2, M0 pancreatic cancer. Tumor is 8.1 cm, moderately differentiated adenocarcinoma, tumor invades duodenal wall, peripancreatic soft tissue. Margins were negative. Lymphovascular space invasion was present, perineural invasion was present. Metastatic disease in 7 of 27 lymph nodes. 2. NGS Tissue Based: KRAS [id number], EGFR amplified and RAC 1 Amplified , GIBRAN and TMB low. Liquid Based 03/2022: KRAS, APC and RON mutation as well. Treatment History: Germline Testing: Negative 1. Diagnostic laparoscopy, pancreaticoduodenectomy, hepaticojejunostomy, pancreatico jejunostomy and gastrojejunostomy on December 04, 2019. Operative findings very bulky pancreatic head mass with significant adenopathy. Large SMA lymph node which appeared to be right at the onset of margin and was completed dissected off the SMA. 2. Post op complication and did not receive adjuvant chemo. 3. 04/2021: Successful sphincterotomy and dilation of pancreaticojejunostomy stricture and placement of an 8mm covered stent. 4. CT 01/2022- Recurrence. 5. [place] and Abraxane 03/16/2022-05/11/2022 (Elected to stop chemo). 6. Resumed [place] and Abraxane 11/23/2022- 12/14/2022- Stopped due to poor tolerance. 7. Restarted [place] and Abraxane dose reduced, 2 week on and 2 weeks off 02/01/2023, Worsening Neuropathy and Abraxane stopped 05/05/2023- CT 04/2023 with progressive disease. 8. JULIA 06/07/2023. HPI: Uriel returns for follow up. He is here with his . He has had fatigue from treatment. His is concerned that he may need an antidepressant as he has not been engaged in normal activities, he has been sad and crying more as well. He also has had a productive, green cough for 3 weeks. No fevers or chills. No chest pain or SOB. He also has some swelling of both feet that started Monday. This is new. No pain in his legs. 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 REVIEW OF SYSTEMS General: No weight loss, malaise or fevers. No night sweats. Positive fatigue. HEENT: Negative for headaches, No changes in hearing or vision, no nose bleeds or other nasal problems. Respiratory: Negative for wheezing and shortness of breath. +productive cough Cardiovascular: Negative for chest pain, and palpitations. +bilateral leg swelling GI: Negative for abdominal discomfort, blood in stools or black stools and change in bowel habits. Constipation. : Negative for dysuria, frequency and incontinence. Musculoskeletal: Negative for joint pain or swelling, back pain and muscle pain. Skin: Negative for lesions, rash and itching. Hematology/Lymphology: Negative for prolonged bleeding, bruising easily, and swollen nodes. PHYSICAL EXAMINATION: BP 83/53 Pulse 81 Temp (Src) 97.5 (Temporal) Resp 16 Ht 5' 6.811 (1.70m) Wt 162 lb 4.1 oz (73.6kg) SpO2 98% BMI 25.56 kg/(m^2). General appearance:ECOG PERFORMANCE STATUS: 1- Restricted in physically strenuous activity. Carries out light duty. Patient in NAD. General: Alert and oriented, no distress, pleasant and cooperative. Sad appearing Heart: Regular, normal S1 and S2, no murmurs, rubs, or gallops Lungs: Clear to auscultation bilaterally, nonlabored breathing Abdomen: Benign Extremities: 2+ ankle edema b/l, posterior tibial pulses full and symmetrical LABS: Glucose (mg/dL) Date Value 10/03/2023 167 02/11/2021 104 Potassium (mmol/L) Date Value 10/03/2023 4.3 02/11/2021 4.0 Sodium (mmol/L) Date Value 10/03/2023 135 02/11/2021 139 Chloride (mmol/L) Date Value 10/03/2023 100 02/11/2021 105 CO2 (mmol/L) Date Value 10/03/2023 27 02/11/2021 25 Creatinine (mg/dL) Date Value 10/03/2023 0.83 02/11/2021 0.49 BUN (mg/dL) Date Value 10/03/2023 13 02/11/2021 6 Anion Gap (mmol/L) Date Value 10/03/2023 8 02/11/2021 9 Calcium (mg/dL) Date Value 02/11/2021 9.5 Calcium, Total (mg/dL) Date Value 10/03/2023 10.4 Protein, Total (g/dL) Date Value 10/03/2023 6.9 02/11/2021 5.5 Albumin (g/dL) Date Value 10/03/2023 3.0 02/11/2021 2.5 Bilirubin, Total (mg/dL) Date Value 10/03/2023 0.6 02/11/2021 0.5 Alkaline Phosphatase (U/L) Date Value 10/03/2023 110 02/11/2021 84 AST (U/L) Date Value 10/03/2023 11 02/11/2021 10 ALT (U/L) Date Value 10/03/2023 10 02/11/2021 9 WBC Date Value Ref Range Status 10/03/2023 9.84 3.70 - 11.00 k/uL Final RBC Date Value Ref Range Status 10/03/2023 3.06 (L) 4.20 - 6.00 m/uL Final Hemoglobin Date Value Ref Range Status 10/03/2023 9.6 (L) 13.0 - 17.0 g/dL Final Hematocrit Date Value Ref Range Status 10/03/2023 29.5 (L) 39.0 - 51.0 % Final MCV Date Value Ref Range Status 10/03/2023 96.4 80.0 - 100.0 fL Final MCH Date Value Ref Range Status 10/03/2023 31.4 26.0 - 34.0 pg Final MCHC Date Value Ref Range Status 10/03/2023 32.5 30.5 - 36.0 g/dL Final RDW-CV Date Value Ref Range Status 10/03/2023 14.2 11.5 - 15.0 % Final Platelet Count Date Value Ref Range Status 10/03/2023 407 (H) 150 - 400 k/uL Final MPV Date Value Ref Range Status 10/03/2023 9.0 9.0 - 12.7 fL Final Abs Neut Date Value Ref Range Status 10/03/2023 7.08 1.45 - 7.50 k/uL Final Lymphocytes % Date Value Ref Range Status 10/03/2023 13.0 % Final Abs Lymph Date Value Ref Range Status 10/03/2023 1.28 1.00 - 4.00 k/uL Final Monocytes % Date Value Ref Range Status 10/03/2023 12.7 % Final Abs [place] Date Value Ref Range Status 10/03/2023 1.25 (H) <0.87 k/uL Final Eosin% Date Value Ref Range Status 12/05/2022 0.9 % Final Abs Eosin Date Value Ref Range Status 10/03/2023 <0.03 <0.46 k/uL Final Basophils % Date Value Ref Range Status 10/03/2023 0.4 % Final Abs Baso Date Value Ref Range Status 10/03/2023 0.04 <0.11 k/uL Final PATH: Whipple on November: SYNOPTIC REPORT OF MANJARREZ PATHOLOGIC FINDINGS TAHMINA, ABDOULAYER, OMENTUM: PANCREAS EXOCRINE WORKSHEET Specimen: Head of pancreas Body of pancreas Duodenum Stomach Common bile duct Gallbladder Procedure: Pancreaticoduodenectomy (Whipple resection), partial pancreatectomy Tumor Site: Pancreatic head Histologic Type: Ductal adenocarcinoma (NOS) Histologic Grade: G2: Moderately differentiated Tumor Size: Greatest dimension: 8.1 cm Microscopic Tumor Extension: Tumor invades duodenal wall Tumor invades peripancreatic soft tissues Tumor invades posterior surface of pancreas Tissue Specimen Type: Pancreaticoduodenal Resection Specimen Margins for Pancreaticoduodenal Resection Specimen: Pancreatic neck/parenchymal margin uninvolved by pancreatic high-grade intraepithelial neoplasia or invasive carcinoma Uncinate (retroperitoneal/superior mesentric artery) margin cannot be assessed Bile duct margin uninvolved by high-grade intraepithelial neoplasia or invasive carcinoma Proximal margin (Gastric or Duodenal) uninvolved by high-grade dysplasia or invasive carcinoma Distal margin (Duodenal or Jejunal) uninvolved by high-grade dysplasia or invasive carcinoma Treatment Effect: No known presurgical therapy Lymphovascular Invasion: Present Perineural Invasion: Present Pathologic Stage Classification (pTNM, AJCC 8th ed) TNM Descriptors: Not applicable Primary Tumor (pT): pT3: Tumor >4 cm in greatest dimension Regional lymph nodes (pN): pN2: Metastasis in four or more regional lymph nodes Number of lymph nodes involved: 7 Number of lymph nodes examined: 27 Distant Metastasis (pM): Not applicable/Not confirmed pathologically in this case Comment: Gallbladder with chronic cholecystitis and cholesterolosis. 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 Large fluid collection in the anterior abdominal wall which visualizes to the skin surface. This collection may arise near the pancreaticojejunostomy. 2. No definite findings to suggest metastatic disease in the abdomen or pelvis. 3. Calcifications within the urinary bladder, nonspecific. A urothelial lesion is not excluded. Consider urologic consultation. CT Pancreas 01/2022: 1. Since 03/15/2021, marked increase in central mesenteric and retroperitoneal lymphadenopathy, suspicious for disease progression. 2. 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 3. Unchanged ill-defined soft tissue surrounding the origin of the celiac artery and common hepatic artery, suspicious for recurrent neoplasm. 4. Status post Whipple procedure. A pancreatic duct stent remains in place. No new pancreatic ductal dilatation. 5. Unchanged heterogeneous attenuation of the pelvic marrow, nonspecific but favored to be secondary to marrow reconversion. Continued attention on subsequent studies is suggested. If warranted, consider further assessment with nuclear medicine bone scan. CT of the chest and Abd and Pelvis 05/2022: 1. Stable CT of the chest. Unchanged appearance of left lower lobe 4 mm nodule. No new or enlarging nodules are visualized. 2. Stable appearance of prominent lymph node in the anterior mediastinum. No new bulky intrathoracic adenopathy is seen. 3. Stable findings of prior granulomatous disease 1. Mesenteric and retroperitoneal lymphadenopathy as noted above. The majority of the visualized lymph nodes appear stable, however there is slight interval increase in size of an aortocaval node. Recommend continued follow-up. 2. Stable ill-defined soft tissue density/fat stranding in the origin of the celiac artery which may be on the basis of postsurgical change versus recurrent neoplasm. 3. Stable postsurgical changes in keeping with prior Whipple procedure. No pancreatic ductal dilation or recurrent mass is seen. 4. Previously described ill-defined soft tissue in the ellen hepatis is not well seen on the current study. CT Scan of the Chest and Abdomen and Pelvis 06/2022: 1. New reticulonodular opacities in the right lung, with an upper lung field predominance, most likely infectious/inflammatory in etiology. Consider follow-up to complete resolution. 2. Other subcentimeter nodular opacities measuring up to 7-8 mm, stable since 05/25/22 1. No interval change since 05/25/22. 2. Multiple mesenteric and peritoneal masses/lymphadenopathy, stable CT Scan of the Chest and Abdomen and Pelvis 10/2022: 1. Since 07/27/2022, decrease in right upper lobe tree-in-bud opacities, compatible with resolving infection/inflammation. 2. Additional nonspecific noncalcified pulmonary nodules measuring up to 0.7 cm are unchanged. 3. Unchanged 0.9 cm retrosternal nodule/lymph node. No progressive lymphadenopathy. 1. Since 07/27/2022, unchanged diffuse retroperitoneal and central mesenteric lymphadenopathy. Unchanged metastatic deposit along the anterior right kidney. 2. New geographic regions of hypodensity along the inferior margin of the left hepatic lobe, likely evolving sites of steatosis. Attention on subsequent studies is suggested. CT Scan of the Chest and Abdomen and Pelvis 04/2023: 1. Stable subcentimeter pulmonary nodules. 2. Areas of centrilobular nodularity in the right upper lobe and left lower lobe which could be due to bronchiolitis. Would advise continued attention on follow-up studies and clinical correlation. 3. Stable nonspecific 8 mm nodule in the prevascular space. This is unchanged when compared to multiple prior exams. 1. Worsening metastatic disease when compared to the prior study with worsening retroperitoneal adenopathy as described above. There is also worsening peritoneal carcinomatosis and a worsening subcutaneous nodule along the anterior abdominal wall. 2. Moderate to marked enlargement of the prostate gland. CT Scan of the Chest and Abdomen and Pelvis 07/2023: 1. Stable subcentimeter pulmonary nodules. 2. Stable nonspecific 8 mm nodule or node in the prevascular space. 3. Stable mild centrilobular nodularity with a tree-in-bud distribution in the lateral right upper lobe and left lower lobe. This appearance is most suggestive of bronchiolitis. Would advise continued attention on follow-up exams. 1. Again noted is metastatic disease with multiple enlarged retroperitoneal lymph nodes, peritoneal nodules, and a subcutaneous nodule in the right abdominal wall. Overall, this appears relatively stable. 2. Surgical changes compatible with Whipple procedure. There is stable stranding/infiltrative soft tissue along the common hepatic artery which could be due to infiltrative neoplasm or posttreatment change. 3. Moderate to marked enlargement of the prostate gland. Assessment and Plan: Uriel Anderson is a 73 year old year old male here for follow up and continued treatment. T3, N2, M0, pancreatic adenocarcinoma. Patient with postoperative complications which precluded adjuvant chemo and did have additional admissions and procedures lastly a stent in the PJ stenosis in 04/2021. His CT, 01/2022 with sandy progression and he has recurrence. His initial disease state was very high risk. Post 4 cycles of therapy and with stable disease on CT 05/2022. Discussed the results and he wanted some time off chemo. Reviewed follow up imaging 10/2022 and still stable but he is more symptomatic and rising CA 19-9 and elected to restart [place] and Abraxane 11/23/2022. However, he had a very poor tolerance of therapy and has had decline in QOL. Therapy was held at that time 12/14/2022. Discussed the current status and rising CA 199 and options of no therapy, repeat chemo with dose modifications and or Xeloda. He wants to restart [place] and Abraxane, which he was on 02/01/2023 and dose reduced and have a 2 week on and 2 week off schedule. Slight delay due to Thanksgiving and URI, his neuropathy is worst and the Abraxane was stopped and continued [place]. CT 04/[address] Bess had a lisa discussion with Uriel and and daughter. Discussed hopsice vs. Second line chemo and the toxicities and he wanted to proceed with the JULIA regimen. This was started on June 07, 2023. He appears to be tolerating therapy well, his imaging in July 2023 demonstrated overall stable disease. Today he is having new onset of productive cough and swelling of his ankles. He is also suffering from depression. I have ordered CXR today with levaquin to start. Doppler of his legs. And discussed starting Zoloft for his depression, which he agrees. Hold treatment today while we work up his other issues and see him next week. Continue nutrition follow up. DM- Follow endocrine. Greta Wetzel PA-C CC: Giovanni Hamlin MD I spent a total of 30 minutes on the date of the service which included preparing to see the patient, [id number] patient care, completing clinical documentation, performing a medically appropriate examination, counseling and educating the patient/family/caregiver, ordering medications, tests, or procedures, independently interpreting results (not separately reported), and communicating results to the patient/family/caregiver. documented in this encounter [facility] 09-25-2023 Telephone encounter Note I will place these orders so my day is not delayed, however Yordy saw the patient last and should be the one to place the orders. Greta Wetzel PA-C [facility] 09-25-2023 Miscellaneous Notes I will place these orders so my day is not delayed, however Yordy saw the patient last and should be the one to place the orders. Greta Wetzel PA-C Patient has an appt on 10/03/23. Would you like labs, if so place orders. Janet Dotson MA documented in this encounter [facility] 09-25-2023 Telephone encounter Note Patient has an appt on 10/03/23. Would you like labs, if so place orders. Janet Dotson MA [facility] 09-18-2023 Telephone encounter Note Pt's notified, verbalized understanding Josephine Salomon RN [facility] Work Phone: 09-18-2023 Miscellaneous Notes Pt's notified, verbalized understanding Josephine Salomon RN Agree if fevers and or worse he needs to let us know Pt's calls stating pt started with a productive cough on Monday morning, and the sputum was yellow-green at that time. As of Monday his cough was clear, and is still clear. Pt hasn't taken anything OTC for the cough, denies fever, chills. Encouraged pt to try mucinex or robitussin DM to see if this helps. Please advise Josephine Salomon RN documented in this encounter [facility] 09-18-2023 Telephone encounter Note Agree if fevers and or worse he needs to let us know [facility] 09-18-2023 Telephone encounter Note Pt's calls stating pt started with a productive cough on Monday morning, and the sputum was yellow-green at that time. As of Monday his cough was clear, and is still clear. Pt hasn't taken anything OTC for the cough, denies fever, chills. Encouraged pt to try mucinex or robitussin DM to see if this helps. Please advise Josephine Salomon RN [facility] 09-13-[address] [facility] 09-13-2023 History of Present illness Narrative PATIENT NAME: Uriel Anderson [facility] NO.: [id number] ATTENDING PHYSICIAN: Grace Bess MD DATE OF SERVICE: September 13, 2023 Some of the elements of this note have been copied from my previous progress note dated 08/23/2023. All the information has been reviewed carefully. Dear Dr. Hamlin here is an update on a follow up visit on male Uriel Anderson at the clinic September 13, 2023. Diagnosis: 1. T3, N2, M0 pancreatic cancer. Tumor is 8.1 cm, moderately differentiated adenocarcinoma, tumor invades duodenal wall, peripancreatic soft tissue. Margins were negative. Lymphovascular space invasion was present, perineural invasion was present. Metastatic disease in 7 of 27 lymph nodes. 2. NGS Tissue Based: KRAS [id number], EGFR amplified and RAC 1 Amplified , GIBRAN and TMB low. Liquid Based 03/2022: KRAS, APC and RON mutation as well. Treatment History: Germline Testing: Negative 1. Diagnostic laparoscopy, pancreaticoduodenectomy, hepaticojejunostomy, pancreatico jejunostomy and gastrojejunostomy on December 04, 2019. Operative findings very bulky pancreatic head mass with significant adenopathy. Large SMA lymph node which appeared to be right at the onset of margin and was completed dissected off the SMA. 2. Post op complication and did not receive adjuvant chemo. 3. 04/2021: Successful sphincterotomy and dilation of pancreaticojejunostomy stricture and placement of an 8mm covered stent. 4. CT 01/2022- Recurrence. 5. [place] and Abraxane 03/16/2022-05/11/2022 (Elected to stop chemo). 6. Resumed [place] and Abraxane 11/23/2022- 12/14/2022- Stopped due to poor tolerance. 7. Restarted [place] and Abraxane dose reduced, 2 week on and 2 weeks off 02/01/2023, Worsening Neuropathy and Abraxane stopped 05/05/2023- CT 04/2023 with progressive disease. 8. JULIA 06/07/2023. HPI: Uriel Anderson is a 73 year old year old male here for follow up and continued treatment. He remains on treatment and is tolerating it well without any side effects from treatment. He denies any significant medical changes since his last visit. He states that overall, he is feeling better. He denies fevers, chills, night sweats and signs/symptoms of infection. No bleeding or abnormal bruising. PAST MEDICAL HISTORY Diagnosis Date Acute bilateral deep vein thrombosis (DVT) of upper extremities (HCC) Adenocarcinoma of head of pancreas (HCC) Diabetes mellitus due to underlying condition with diabetic polyneuropathy, without long-term current use of insulin (HCC) 06/07/2023 Gastric outlet obstruction Obstructive sleep apnea Social History Tobacco Use Smoking status: Former Packs/day: 1.00 Years: 35.00 Additional pack years: 0.00 Total pack years: 35.00 Types: Cigarettes Quit date: 2019 Years since quittin.3 Passive exposure: Past Smokeless tobacco: Never Vaping Use Vaping Use: Never used Substance Use Topics Alcohol use: Not Currently Drug use: Never FAMILY HISTORY Problem Relation Age of Onset Anesthesia Problems No Family History Past medical, social and family history reviewed without any changes. REVIEW OF SYSTEMS General: No weight loss, malaise or fevers. No night sweats. Positive fatigue. HEENT: Negative for headaches, No changes in hearing or vision, no nose bleeds or other nasal problems. Respiratory: Negative for cough, wheezing and shortness of breath. Cardiovascular: Negative for chest pain, leg swelling and palpitations. GI: Negative for abdominal discomfort, blood in stools or black stools and change in bowel habits. Constipation. : Negative for dysuria, frequency and incontinence. Musculoskeletal: Negative for joint pain or swelling, back pain and muscle pain. Skin: Negative for lesions, rash and itching. Hematology/Lymphology: Negative for prolonged bleeding, bruising easily, and swollen nodes. PHYSICAL EXAMINATION: BP 106/63 Pulse 75 Temp (Src) 97.6 (Temporal) Resp 16 Ht 5' 6.811 (1.70m) Wt 157 lb 3 oz (71.3kg) SpO2 99% BMI 24.76 kg/(m^2). General appearance:ECOG PERFORMANCE STATUS: 1- Restricted in physically strenuous activity. Carries out light duty. Patient in NAD. Exam limited to gross visualization where appropriate. Gen.: This is an age-appropriate patient in no acute distress. Head: Appears atraumatic with no visible lesions. Eyes: Pupils equally round and reactive to light, extraocular muscles are intact. Neck: Supple. Respiratory: Appears to be respiring comfortably. Neurologic: Nonfocal to gross visualization. Alert and oriented 3. Psychiatric: No evidence of inappropriate anxiety or depression. Skin: Visible areas of skin without rash, lesions, wounds or petechiae. LABS: Glucose (mg/dL) Date Value 09/13/2023 142 02/11/2021 104 Potassium (mmol/L) Date Value 09/13/2023 4.4 02/11/2021 4.0 Sodium (mmol/L) Date Value 09/13/2023 143 02/11/2021 139 Chloride (mmol/L) Date Value 09/13/2023 109 02/11/2021 105 CO2 (mmol/L) Date Value 09/13/2023 24 02/11/2021 25 Creatinine (mg/dL) Date Value 09/13/2023 0.81 02/11/2021 0.49 BUN (mg/dL) Date Value 09/13/2023 16 02/11/2021 6 Anion Gap (mmol/L) Date Value 09/13/2023 10 02/11/2021 9 Calcium (mg/dL) Date Value 02/11/2021 9.5 Calcium, Total (mg/dL) Date Value 09/13/2023 10.3 Protein, Total (g/dL) Date Value 09/13/2023 6.6 02/11/2021 5.5 Albumin (g/dL) Date Value 09/13/2023 3.8 02/11/2021 2.5 Bilirubin, Total (mg/dL) Date Value 09/13/2023 0.7 02/11/2021 0.5 Alkaline Phosphatase (U/L) Date Value 09/13/2023 136 02/11/2021 84 AST (U/L) Date Value 09/13/2023 16 02/11/2021 10 ALT (U/L) Date Value 09/13/2023 18 02/11/2021 9 WBC Date Value Ref Range Status 09/13/2023 3.89 3.70 - 11.00 k/uL Final RBC Date Value Ref Range Status 09/13/2023 3.43 (L) 4.20 - 6.00 m/uL Final Hemoglobin Date Value Ref Range Status 09/13/2023 11.4 (L) 13.0 - 17.0 g/dL Final Hematocrit Date Value Ref Range Status 09/13/2023 35.3 (L) 39.0 - 51.0 % Final MCV Date Value Ref Range Status 09/13/2023 102.9 (H) 80.0 - 100.0 fL Final MCH Date Value Ref Range Status 09/13/2023 33.2 26.0 - 34.0 pg Final MCHC Date Value Ref Range Status 09/13/2023 32.3 30.5 - 36.0 g/dL Final RDW-CV Date Value Ref Range Status 09/13/2023 14.6 11.5 - 15.0 % Final Platelet Count Date Value Ref Range Status 09/13/2023 255 150 - 400 k/uL Final MPV Date Value Ref Range Status 09/13/2023 10.0 9.0 - 12.7 fL Final Abs Neut Date Value Ref Range Status 09/13/2023 1.91 1.45 - 7.50 k/uL Final Lymphocytes % Date Value Ref Range Status 09/13/2023 34.2 % Final Abs Lymph Date Value Ref Range Status 09/13/2023 1.33 1.00 - 4.00 k/uL Final Monocytes % Date Value Ref Range Status 09/13/2023 15.2 % Final Abs [place] Date Value Ref Range Status 09/13/2023 0.59 <0.87 k/uL Final Eosin% Date Value Ref Range Status 12/05/2022 0.9 % Final Abs Eosin Date Value Ref Range Status 09/13/2023 0.03 <0.46 k/uL Final Basophils % Date Value Ref Range Status 09/13/2023 0.5 % Final Abs Baso Date Value Ref Range Status 09/13/2023 <0.03 <0.11 k/uL Final PATH: Whipple on November: SYNOPTIC REPORT OF MANJARREZ PATHOLOGIC FINDINGS WHIPPLE, GALLBLADER, OMENTUM: PANCREAS EXOCRINE WORKSHEET Specimen: Head of pancreas Body of pancreas Duodenum Stomach Common bile duct Gallbladder Procedure: Pancreaticoduodenectomy (Whipple resection), partial pancreatectomy Tumor Site: Pancreatic head Histologic Type: Ductal adenocarcinoma (NOS) Histologic Grade: G2: Moderately differentiated Tumor Size: Greatest dimension: 8.1 cm Microscopic Tumor Extension: Tumor invades duodenal wall Tumor invades peripancreatic soft tissues Tumor invades posterior surface of pancreas Tissue Specimen Type: Pancreaticoduodenal Resection Specimen Margins for Pancreaticoduodenal Resection Specimen: Pancreatic neck/parenchymal margin uninvolved by pancreatic high-grade intraepithelial neoplasia or invasive carcinoma Uncinate (retroperitoneal/superior mesentric artery) margin cannot be assessed Bile duct margin uninvolved by high-grade intraepithelial neoplasia or invasive carcinoma Proximal margin (Gastric or Duodenal) uninvolved by high-grade dysplasia or invasive carcinoma Distal margin (Duodenal or Jejunal) uninvolved by high-grade dysplasia or invasive carcinoma Treatment Effect: No known presurgical therapy Lymphovascular Invasion: Present Perineural Invasion: Present Pathologic Stage Classification (pTNM, AJCC 8th ed) TNM Descriptors: Not applicable Primary Tumor (pT): pT3: Tumor >4 cm in greatest dimension Regional lymph nodes (pN): pN2: Metastasis in four or more regional lymph nodes Number of lymph nodes involved: 7 Number of lymph nodes examined: 27 Distant Metastasis (pM): Not applicable/Not confirmed pathologically in this case Comment: Gallbladder with chronic cholecystitis and cholesterolosis. 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 Large fluid collection in the anterior abdominal wall which visualizes to the skin surface. This collection may arise near the pancreaticojejunostomy. 2. No definite findings to suggest metastatic disease in the abdomen or pelvis. 3. Calcifications within the urinary bladder, nonspecific. A urothelial lesion is not excluded. Consider urologic consultation. CT Pancreas 01/2022: 1. Since 03/15/2021, marked increase in central mesenteric and retroperitoneal lymphadenopathy, suspicious for disease progression. 2. 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 3. Unchanged ill-defined soft tissue surrounding the origin of the celiac artery and common hepatic artery, suspicious for recurrent neoplasm. 4. Status post Whipple procedure. A pancreatic duct stent remains in place. No new pancreatic ductal dilatation. 5. Unchanged heterogeneous attenuation of the pelvic marrow, nonspecific but favored to be secondary to marrow reconversion. Continued attention on subsequent studies is suggested. If warranted, consider further assessment with nuclear medicine bone scan. CT of the chest and Abd and Pelvis 05/2022: 1. Stable CT of the chest. Unchanged appearance of left lower lobe 4 mm nodule. No new or enlarging nodules are visualized. 2. Stable appearance of prominent lymph node in the anterior mediastinum. No new bulky intrathoracic adenopathy is seen. 3. Stable findings of prior granulomatous disease 1. Mesenteric and retroperitoneal lymphadenopathy as noted above. The majority of the visualized lymph nodes appear stable, however there is slight interval increase in size of an aortocaval node. Recommend continued follow-up. 2. Stable ill-defined soft tissue density/fat stranding in the origin of the celiac artery which may be on the basis of postsurgical change versus recurrent neoplasm. 3. Stable postsurgical changes in keeping with prior Whipple procedure. No pancreatic ductal dilation or recurrent mass is seen. 4. Previously described ill-defined soft tissue in the ellen hepatis is not well seen on the current study. CT Scan of the Chest and Abdomen and Pelvis 06/2022: 1. New reticulonodular opacities in the right lung, with an upper lung field predominance, most likely infectious/inflammatory in etiology. Consider follow-up to complete resolution. 2. Other subcentimeter nodular opacities measuring up to 7-8 mm, stable since 05/25/22 1. No interval change since 05/25/22. 2. Multiple mesenteric and peritoneal masses/lymphadenopathy, stable CT Scan of the Chest and Abdomen and Pelvis 10/2022: 1. Since 07/27/2022, decrease in right upper lobe tree-in-bud opacities, compatible with resolving infection/inflammation. 2. Additional nonspecific noncalcified pulmonary nodules measuring up to 0.7 cm are unchanged. 3. Unchanged 0.9 cm retrosternal nodule/lymph node. No progressive lymphadenopathy. 1. Since 07/27/2022, unchanged diffuse retroperitoneal and central mesenteric lymphadenopathy. Unchanged metastatic deposit along the anterior right kidney. 2. New geographic regions of hypodensity along the inferior margin of the left hepatic lobe, likely evolving sites of steatosis. Attention on subsequent studies is suggested. CT Scan of the Chest and Abdomen and Pelvis 04/2023: 1. Stable subcentimeter pulmonary nodules. 2. Areas of centrilobular nodularity in the right upper lobe and left lower lobe which could be due to bronchiolitis. Would advise continued attention on follow-up studies and clinical correlation. 3. Stable nonspecific 8 mm nodule in the prevascular space. This is unchanged when compared to multiple prior exams. 1. Worsening metastatic disease when compared to the prior study with worsening retroperitoneal adenopathy as described above. There is also worsening peritoneal carcinomatosis and a worsening subcutaneous nodule along the anterior abdominal wall. 2. Moderate to marked enlargement of the prostate gland. CT Scan of the Chest and Abdomen and Pelvis 07/2023: 1. Stable subcentimeter pulmonary nodules. 2. Stable nonspecific 8 mm nodule or node in the prevascular space. 3. Stable mild centrilobular nodularity with a tree-in-bud distribution in the lateral right upper lobe and left lower lobe. This appearance is most suggestive of bronchiolitis. Would advise continued attention on follow-up exams. 1. Again noted is metastatic disease with multiple enlarged retroperitoneal lymph nodes, peritoneal nodules, and a subcutaneous nodule in the right abdominal wall. Overall, this appears relatively stable. 2. Surgical changes compatible with Whipple procedure. There is stable stranding/infiltrative soft tissue along the common hepatic artery which could be due to infiltrative neoplasm or posttreatment change. 3. Moderate to marked enlargement of the prostate gland. Assessment and Plan: Uriel Anderson is a 73 year old year old male here for follow up and continued treatment. T3, N2, M0, pancreatic adenocarcinoma. Patient with postoperative complications which precluded adjuvant chemo and did have additional admissions and procedures lastly a stent in the PJ stenosis in 04/2021. His CT, 01/2022 with sandy progression and he has recurrence. His initial disease state was very high risk. Post 4 cycles of therapy and with stable disease on CT 05/2022. Discussed the results and he wanted some time off chemo. Reviewed follow up imaging 10/2022 and still stable but he is more symptomatic and rising CA 19-9 and elected to restart [place] and Abraxane 11/23/2022. However, he had a very poor tolerance of therapy and has had declinind QOL. Therapy was held at that time 12/14/2022. Discussed the current status and rising CA 199 and options of no therapy, repeat chemo with dose modifications and or Xeloda. He wants to restart [place] and Abraxane, which he was on 02/01/2023 and dose reduced and have a 2 week on and 2 week off schedule. Slight delay due to Thanksgiving and URI, his neuropathy is worst and the Abraxane was stopped and continued [place]. CT 04/2023 wit progressive disease. I had a lisa discussion with Uriel and and daughter. Discussed hopsice vs. Second line chemo and the toxicities and he would like to proceed with the JULIA regimen. This was started on June 07, 2023. He appears to be tolerating therapy well, his imaging in July 2023 demonstrated's overall stable disease. He will continue therapy but would like to take an additional week break prior to starting the next cycle. Continue nutrition follow up. DM- Follow endocrine. Treatment today. See back in 3 weeks for follow-up and labs and chemo. Thank you for the kind referral. If there are any questions and or concerns please do not hesitate to contact Grace Bess MD at [phone]. Yordy Moncada APRN.[facility] Hematology/Medical Oncology [facility] CC: Giovanni Hamlin MD I spent a total of 30 minutes on the date of the service which included preparing to see the patient, [id number] patient care, completing clinical documentation, obtaining and/or reviewing separately obtained history, performing a medically appropriate examination, counseling and educating the patient/family/caregiver, ordering medications, tests, or procedures, independently interpreting results (not separately reported), and communicating results to the patient/family/caregiver. documented in this encounter [facility] 08-23-[address] [facility] 08-23-2023 History of Present illness Narrative PATIENT NAME: Uriel Anderson [facility] NO.: [id number] ATTENDING PHYSICIAN: Grace Bess MD DATE OF SERVICE: August 23, 2023 Some of the elements of this note have been copied from my previous progress note dated 08/02/2023. All the information has been reviewed carefully. Dear Dr. Hamlin here is an update on a follow up visit on male Uriel Anderson at the clinic August 23, 2023 Diagnosis: 1. T3, N2, M0 pancreatic cancer. Tumor is 8.1 cm, moderately differentiated adenocarcinoma, tumor invades duodenal wall, peripancreatic soft tissue. Margins were negative. Lymphovascular space invasion was present, perineural invasion was present. Metastatic disease in 7 of 27 lymph nodes. 2. NGS Tissue Based: KRAS [id number], EGFR amplified and RAC 1 Amplified , GIBRAN and TMB low, Liquid Based 03/2022: KRAS, APC and RON mutation as well. Treatment History: Germline Testing: Negative 1. Diagnostic laparoscopy, pancreaticoduodenectomy, hepaticojejunostomy, pancreatico jejunostomy and gastrojejunostomy on December 04, 2019. Operative findings very bulky pancreatic head mass with significant adenopathy. Large SMA lymph node which appeared to be right at the onset of margin and was completed dissected off the SMA. 2. Post op complication and did not receive adjuvant chemo 3. 04/2021: Successful sphincterotomy and dilation of pancreaticojejunostomy stricture and placement of an 8mm covered stent 4. CT 01/2022- recurrence 5. [place] and Abraxane 03/16/2022-05/11/2022 ( elected to stop chemo) 6. Resumed [place] and Abraxane 11/23/2022- 12/14/2022- Stopped due to poor tolerance 7. Restarted [place] and Abraxane dose reduced, 2 week on and 2 weeks off 02/01/2023, Worsening Neuropathy and Abraxane stopped 05/05/2023- CT 04/2023 with progressive disease 8. JULIA 06/07/2023 HPI: Uriel Anderson is a 73 year old year old male here for follow up. Outside of fatigue he is overall doing reasonly well. He states that he is eating well. Denies fever chills night sweats or abdominal pains. PAST MEDICAL HISTORY Diagnosis Date Acute bilateral deep vein thrombosis (DVT) of upper extremities (HCC) Adenocarcinoma of head of pancreas (HCC) Diabetes mellitus due to underlying condition with diabetic polyneuropathy, without long-term current use of insulin (HCC) 06/07/2023 Gastric outlet obstruction Obstructive sleep apnea Social History Tobacco Use Smoking status: Former Packs/day: 1.00 Years: 35.00 Additional pack years: 0.00 Total pack years: 35.00 Types: Cigarettes Quit date: 2018 Years since quittin.2 Passive exposure: Past Smokeless tobacco: Never Vaping Use Vaping Use: Never used Substance Use Topics Alcohol use: Not Currently Drug use: Never FAMILY HISTORY Problem Relation Age of Onset Anesthesia Problems No Family History Past medical, social and family history reviewed without any changes. REVIEW OF SYSTEMS GENERAL: No weight loss, malaise or fevers. No night sweats. HEENT: Negative for headaches, No changes in hearing or vision, no nose bleeds or other nasal problems. RESPIRATORY: Negative for cough, wheezing and shortness of breath CARDIOVASCULAR: Negative for chest pain, leg swelling and palpitations GI: Negative for abdominal discomfort, blood in stools or black stools and change in bowel habits : Negative for dysuria, frequency and incontinence MUSCULOSKELETAL: Negative for joint pain or swelling, back pain, and muscle pain. SKIN: Negative for lesions, rash, and itching. HEMATOLOGY/LYMPHOLOGY Negative for prolonged bleeding, bruising easily, and swollen nodes. NEURO: Negative for numbness or tingling of hands/feet. No weakness. PHYSICAL EXAMINATION: BP 108/72 Pulse 88 Temp (Src) 97.6 (Temporal) Resp 16 Ht 5' 6.811 (1.70m) Wt 159 lb 13.3 oz (72.5kg) SpO2 98% BMI 25.18 kg/(m^2). Wt 79.4 kg (175 lb) BMI 26.61 kg/m2 Last 3 Encounter Wt Readings: Date: Wt: 03/06/2020 79.4 kg (175 lb) 02/14/2020 84.9 kg (187 lb 2.7 oz) 02/14/2020 82.2 kg (181 lb 3.2 oz) General appearance:ECOG PERFORMANCE STATUS: 1- Restricted in physically strenuous activity. Carries out light duty. Patient in NAD. Skin: Skin color, texture, turgor normal. No rashes or lesions. Eyes: Anicteric sclera. Pupils are equally round and reactive to light. Extraocular movements are intact. Lymph Nodes: No cervical, supraclavicular, axillary or inguinal adenopathy. Oropharynx: Lips, mucosa, and tongue normal. Back: No pain to percussion. Negative SLR test Lungs clear to auscultation, No wheezing or rhonchi Heart: RRR without murmur, gallop, or rubs. Abdomen: Abdomen is soft but there is purulent drainage from around the pigtail catheter as well as the laparoscopic ports. Minimal tenderness. No rebound or guarding. Extremities: No deformities. No edema Neuro: Gait and speech normal. Reflexes normal and symmetric. Muscular strength intact. Sensation grossly intact. Rectal: Deferred : Deferred LABS: Glucose (mg/dL) Date Value 08/02/2023 149 02/11/2021 104 Potassium (mmol/L) Date Value 08/02/2023 4.0 02/11/2021 4.0 Sodium (mmol/L) Date Value 08/02/2023 139 02/11/2021 139 Chloride (mmol/L) Date Value 08/02/2023 105 02/11/2021 105 CO2 (mmol/L) Date Value 08/02/2023 24 02/11/2021 25 Creatinine (mg/dL) Date Value 08/02/2023 0.86 02/11/2021 0.49 BUN (mg/dL) Date Value 08/02/2023 20 02/11/2021 6 Anion Gap (mmol/L) Date Value 08/02/2023 10 02/11/2021 9 Calcium (mg/dL) Date Value 02/11/2021 9.5 Calcium, Total (mg/dL) Date Value 08/02/2023 10.4 Protein, Total (g/dL) Date Value 08/02/2023 6.5 02/11/2021 5.5 Albumin (g/dL) Date Value 08/02/2023 3.9 02/11/2021 2.5 Bilirubin, Total (mg/dL) Date Value 08/02/2023 1.0 02/11/2021 0.5 Alkaline Phosphatase (U/L) Date Value 08/02/2023 137 02/11/2021 84 AST (U/L) Date Value 08/02/2023 13 02/11/2021 10 ALT (U/L) Date Value 08/02/2023 12 02/11/2021 9 WBC Date Value Ref Range Status 08/23/2023 4.79 3.70 - 11.00 k/uL Final RBC Date Value Ref Range Status 08/23/2023 3.31 (L) 4.20 - 6.00 m/uL Final Hemoglobin Date Value Ref Range Status 08/23/2023 11.3 (L) 13.0 - 17.0 g/dL Final Hematocrit Date Value Ref Range Status 08/23/2023 34.6 (L) 39.0 - 51.0 % Final MCV Date Value Ref Range Status 08/23/2023 104.5 (H) 80.0 - 100.0 fL Final MCH Date Value Ref Range Status 08/23/2023 34.1 (H) 26.0 - 34.0 pg Final MCHC Date Value Ref Range Status 08/23/2023 32.7 30.5 - 36.0 g/dL Final RDW-CV Date Value Ref Range Status 08/23/2023 15.3 (H) 11.5 - 15.0 % Final Platelet Count Date Value Ref Range Status 08/23/2023 241 150 - 400 k/uL Final MPV Date Value Ref Range Status 08/23/2023 10.0 9.0 - 12.7 fL Final Abs Neut Date Value Ref Range Status 08/23/2023 2.04 1.45 - 7.50 k/uL Final Lymphocytes % Date Value Ref Range Status 08/23/2023 40.7 % Final Abs Lymph Date Value Ref Range Status 08/23/2023 1.95 1.00 - 4.00 k/uL Final Monocytes % Date Value Ref Range Status 08/23/2023 15.0 % Final Abs [place] Date Value Ref Range Status 08/23/2023 0.72 <0.87 k/uL Final Eosin% Date Value Ref Range Status 12/05/2022 0.9 % Final Abs Eosin Date Value Ref Range Status 08/23/2023 0.04 <0.46 k/uL Final Basophils % Date Value Ref Range Status 08/23/2023 0.4 % Final Abs Baso Date Value Ref Range Status 08/23/2023 <0.03 <0.11 k/uL Final PATH: Whipple on November: SYNOPTIC REPORT OF MANJARREZ PATHOLOGIC FINDINGS WHIPPLE, GALLBLADER, OMENTUM: PANCREAS EXOCRINE WORKSHEET Specimen: Head of pancreas Body of pancreas Duodenum Stomach Common bile duct Gallbladder Procedure: Pancreaticoduodenectomy (Whipple resection), partial pancreatectomy Tumor Site: Pancreatic head Histologic Type: Ductal adenocarcinoma (NOS) Histologic Grade: G2: Moderately differentiated Tumor Size: Greatest dimension: 8.1 cm Microscopic Tumor Extension: Tumor invades duodenal wall Tumor invades peripancreatic soft tissues Tumor invades posterior surface of pancreas Tissue Specimen Type: Pancreaticoduodenal Resection Specimen Margins for Pancreaticoduodenal Resection Specimen: Pancreatic neck/parenchymal margin uninvolved by pancreatic high-grade intraepithelial neoplasia or invasive carcinoma Uncinate (retroperitoneal/superior mesentric artery) margin cannot be assessed Bile duct margin uninvolved by high-grade intraepithelial neoplasia or invasive carcinoma Proximal margin (Gastric or Duodenal) uninvolved by high-grade dysplasia or invasive carcinoma Distal margin (Duodenal or Jejunal) uninvolved by high-grade dysplasia or invasive carcinoma Treatment Effect: No known presurgical therapy Lymphovascular Invasion: Present Perineural Invasion: Present Pathologic Stage Classification (pTNM, AJCC 8th ed) TNM Descriptors: Not applicable Primary Tumor (pT): pT3: Tumor >4 cm in greatest dimension Regional lymph nodes (pN): pN2: Metastasis in four or more regional lymph nodes Number of lymph nodes involved: 7 Number of lymph nodes examined: 27 Distant Metastasis (pM): Not applicable/Not confirmed pathologically in this case Comment: Gallbladder with chronic cholecystitis and cholesterolosis. 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 Large fluid collection in the anterior abdominal wall which visualizes to the skin surface. This collection may arise near the pancreaticojejunostomy. 2. No definite findings to suggest metastatic disease in the abdomen or pelvis. 3. Calcifications within the urinary bladder, nonspecific. A urothelial lesion is not excluded. Consider urologic consultation. CT Pancreas 01/2022: 1. Since 03/15/2021, marked increase in central mesenteric and retroperitoneal lymphadenopathy, suspicious for disease progression. 2. 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 3. Unchanged ill-defined soft tissue surrounding the origin of the celiac artery and common hepatic artery, suspicious for recurrent neoplasm. 4. Status post Whipple procedure. A pancreatic duct stent remains in place. No new pancreatic ductal dilatation. 5. Unchanged heterogeneous attenuation of the pelvic marrow, nonspecific but favored to be secondary to marrow reconversion. Continued attention on subsequent studies is suggested. If warranted, consider further assessment with nuclear medicine bone scan. CT of the chest and Abd and Pelvis 05/2022: 1. Stable CT of the chest. Unchanged appearance of left lower lobe 4 mm nodule. No new or enlarging nodules are visualized. 2. Stable appearance of prominent lymph node in the anterior mediastinum. No new bulky intrathoracic adenopathy is seen. 3. Stable findings of prior granulomatous disease 1. Mesenteric and retroperitoneal lymphadenopathy as noted above. The majority of the visualized lymph nodes appear stable, however there is slight interval increase in size of an aortocaval node. Recommend continued follow-up. 2. Stable ill-defined soft tissue density/fat stranding in the origin of the celiac artery which may be on the basis of postsurgical change versus recurrent neoplasm. 3. Stable postsurgical changes in keeping with prior Whipple procedure. No pancreatic ductal dilation or recurrent mass is seen. 4. Previously described ill-defined soft tissue in the ellen hepatis is not well seen on the current study. CT Scan of the Chest and Abdomen and Pelvis 06/2022: 1. New reticulonodular opacities in the right lung, with an upper lung field predominance, most likely infectious/inflammatory in etiology. Consider follow-up to complete resolution. 2. Other subcentimeter nodular opacities measuring up to 7-8 mm, stable since 05/25/22 1. No interval change since 05/25/22. 2. Multiple mesenteric and peritoneal masses/lymphadenopathy, stable CT Scan of the Chest and Abdomen and Pelvis 10/2022: 1. Since 07/27/2022, decrease in right upper lobe tree-in-bud opacities, compatible with resolving infection/inflammation. 2. Additional nonspecific noncalcified pulmonary nodules measuring up to 0.7 cm are unchanged. 3. Unchanged 0.9 cm retrosternal nodule/lymph node. No progressive lymphadenopathy. 1. Since 07/27/2022, unchanged diffuse retroperitoneal and central mesenteric lymphadenopathy. Unchanged metastatic deposit along the anterior right kidney. 2. New geographic regions of hypodensity along the inferior margin of the left hepatic lobe, likely evolving sites of steatosis. Attention on subsequent studies is suggested. CT Scan of the Chest and Abdomen and Pelvis 04/2023: 1. Stable subcentimeter pulmonary nodules. 2. Areas of centrilobular nodularity in the right upper lobe and left lower lobe which could be due to bronchiolitis. Would advise continued attention on follow-up studies and clinical correlation. 3. Stable nonspecific 8 mm nodule in the prevascular space. This is unchanged when compared to multiple prior exams. 1. Worsening metastatic disease when compared to the prior study with worsening retroperitoneal adenopathy as described above. There is also worsening peritoneal carcinomatosis and a worsening subcutaneous nodule along the anterior abdominal wall. 2. Moderate to marked enlargement of the prostate gland. CT Scan of the Chest and Abdomen and Pelvis 07/2023: 1. Stable subcentimeter pulmonary nodules. 2. Stable nonspecific 8 mm nodule or node in the prevascular space. 3. Stable mild centrilobular nodularity with a tree-in-bud distribution in the lateral right upper lobe and left lower lobe. This appearance is most suggestive of bronchiolitis. Would advise continued attention on follow-up exams. 1. Again noted is metastatic disease with multiple enlarged retroperitoneal lymph nodes, peritoneal nodules, and a subcutaneous nodule in the right abdominal wall. Overall, this appears relatively stable. 2. Surgical changes compatible with Whipple procedure. There is stable stranding/infiltrative soft tissue along the common hepatic artery which could be due to infiltrative neoplasm or posttreatment change. 3. Moderate to marked enlargement of the prostate gland. Assessment and Plan: Uriel Anderson is a 73 year old year old male here for follow up. T3, N2, M0, pancreatic adenocarcinoma. Patient with postoperative complications which precluded adjuvant chemo and did have additional admissions and procedures lastly a stent in the PJ stenosis in 04/2021. His CT, 01/2022 with sandy progression and he has recurrence. His initial disease state was very high risk. Post 4 cycles of therapy and with stable disease on CT 05/2022. Discussed the results and he wanted some time off chemo. Reviewed follow up imaging 10/2022 and still stable but he is more symptomatic and rising CA 19-9 and elected to restart [place] and Abraxane 11/23/2022. However, he had a very poor tolerance of therapy and has had declinind QOL. Therapy was held at that time 12/14/2022 Discussed the current status and rising CA 199 and options of no therapy, repeat chemo with dose modifications and or Xeloda. He wants to restart [place] and Abraxane, which he was on 02/01/2023 and dose reduced and have a 2 week on and 2 week off schedule. Slight delay due to Thanksgiving and URI, his neuropathy is worst and the Abraxane was stopped and continued [place]. CT 04/2023 wit progressive disease. I had a lisa discussion with Uriel and and daughter. Discussed hopsice vs. Second line chemo and the toxicities and he would like to proceed with the JULIA regimen. This was started on June 07, 2023. He appears to be tolerating therapy well, his imaging in July 2023 demonstrated's overall stable disease. He will continue therapy but would like to take an additional week break prior to starting the next cycle. Continue nutrition follow up DM- Follow endocrine See back in 3 weeks for follow-up and labs and chemo Thank you for the kind referral. If there are any questions and or concerns please do not hesitate to contact me at [phone]. Grace Bess MD Hematology/Medical Oncology [facility] CC: Giovanni Hamlin MD I spent a total of 30 minutes on the date of the service which included preparing to see the patient, [id number] patient care, completing clinical documentation, obtaining and/or reviewing separately obtained history, performing a medically appropriate examination, counseling and educating the patient/family/caregiver, ordering medications, tests, or procedures, and independently interpreting results (not separately reported). documented in this encounter [facility] 08-18-[address] [facility] 08-18-[address] [facility] 08-11-2023 Miscellaneous Notes Call placed to patient again, no answer on both numbers. Left detailed message on [place] number regarding new updated appts. Ora Jones Patient has been rescheduled to 4/3. Call placed to patient, no answer unable to leave a voicemail as it is not accepting messages. Will attempt to keep trying patient. Ora Jones Currently working on this -- full schedules. Ora Jones Concepcion/Ora : can you please reschedule this Patient's lab/ [place]/ and treatment appointments until after the Patient's CT Scan. Thank you! DEVYN Arshad I can see him after the CT The Patient called the answering service early this morning to cancel his CT Scan as he believed he has the flu and also asked that we call him back to reschedule this appointment after 11am. I reached out to the Patient to get his CT Scan rescheduled and spoke with him and his . We have him scheduled for MondayAugust 17 at 930am. I know he has his appointment with noah Bess, and Chemo Treatment on MondayAugust 15. The Patient and his , did not want any of the openings for CT Scans prior to August 15 that I offered. They wanted certain days and certain times, nor did the patient want to come without his . Thanks! DEVYN Pelayo documented in this encounter [facility] 08-09-2023 Miscellaneous Notes Pt called today to cancel his follow up appointment due to feeling like he had the flu. Call placed to pt to follow up. Pt's states he's got a little GI thing going on. She states pt is taking imodium to see if it helps. I asked how bad his diarrhea is and states he hasn't had any diarrhea, and that his bowels have been moving normal. He's having gas and some abdominal discomfort. Explained to that pt needs to stop taking imodium if he's not having diarrhea, and that it's fine for him to take some gas ex if he's passing a lot of gas. verbalized understanding. states pt's eating a big sandwich now and has been eating normal. Denies nausea/vomiting. Josephine Salomon RN documented in this encounter [facility] 08-02-[address] [facility] 08-02-2023 History of Present illness Narrative PATIENT NAME: Uriel Anderson [facility] NO.: [id number] ATTENDING PHYSICIAN: Grace Bess MD DATE OF SERVICE: August 02, 2023 Some of the elements of this note have been copied from my previous progress note dated 06/21/2023. All the information has been reviewed carefully. Dear Dr. Hamlin here is an update on a follow up visit on male Uriel Anderson at the clinic August 02, 2023 Diagnosis: 1. T3, N2, M0 pancreatic cancer. Tumor is 8.1 cm, moderately differentiated adenocarcinoma, tumor invades duodenal wall, peripancreatic soft tissue. Margins were negative. Lymphovascular space invasion was present, perineural invasion was present. Metastatic disease in 7 of 27 lymph nodes. 2. NGS Tissue Based: KRAS [id number], EGFR amplified and RAC 1 Amplified , GIBRAN and TMB low, Liquid Based 03/2022: KRAS, APC and RON mutation as well. Treatment History: Germline Testing: Negative 1. Diagnostic laparoscopy, pancreaticoduodenectomy, hepaticojejunostomy, pancreatico jejunostomy and gastrojejunostomy on December 04, 2019. Operative findings very bulky pancreatic head mass with significant adenopathy. Large SMA lymph node which appeared to be right at the onset of margin and was completed dissected off the SMA. 2. Post op complication and did not receive adjuvant chemo 3. 04/2021: Successful sphincterotomy and dilation of pancreaticojejunostomy stricture and placement of an 8mm covered stent 4. CT 01/2022- recurrence 5. [place] and Abraxane 03/16/2022-05/11/2022 ( elected to stop chemo) 6. Resumed [place] and Abraxane 11/23/2022- 12/14/2022- Stopped due to poor tolerance 7. Restarted [place] and Abraxane dose reduced, 2 week on and 2 weeks off 02/01/2023, Worsening Neuropathy and Abraxane stopped 05/05/2023- CT 04/2023 with progressive disease 8. JULIA 06/07/2023 HPI: Uriel Anderson is a 73 year old year old male here for follow up. He is overall tolerating the therapy well, still active and denies any worsening GI side effects and also denies any rashes and or abdominal pain as well. PAST MEDICAL HISTORY Diagnosis Date Acute bilateral deep vein thrombosis (DVT) of upper extremities (HCC) Adenocarcinoma of head of pancreas (HCC) Diabetes mellitus due to underlying condition with diabetic polyneuropathy, without long-term current use of insulin (HCC) 06/07/2023 Gastric outlet obstruction Obstructive sleep apnea Social History Tobacco Use Smoking status: Former Packs/day: 1.00 Years: 35.00 Additional pack years: 0.00 Total pack years: 35.00 Types: Cigarettes Quit date: 2019 Years since quittin.2 Passive exposure: Past Smokeless tobacco: Never Vaping Use Vaping Use: Never used Substance Use Topics Alcohol use: Not Currently Drug use: Never FAMILY HISTORY Problem Relation Age of Onset Anesthesia Problems No Family History Past medical, social and family history reviewed without any changes. REVIEW OF SYSTEMS GENERAL: No weight loss, malaise or fevers. No night sweats. HEENT: Negative for headaches, No changes in hearing or vision, no nose bleeds or other nasal problems. RESPIRATORY: Negative for cough, wheezing and shortness of breath CARDIOVASCULAR: Negative for chest pain, leg swelling and palpitations GI: Negative for abdominal discomfort, blood in stools or black stools and change in bowel habits : Negative for dysuria, frequency and incontinence MUSCULOSKELETAL: Negative for joint pain or swelling, back pain, and muscle pain. SKIN: Negative for lesions, rash, and itching. HEMATOLOGY/LYMPHOLOGY Negative for prolonged bleeding, bruising easily, and swollen nodes. NEURO: Negative for numbness or tingling of hands/feet. No weakness. PHYSICAL EXAMINATION: BP 96/68 Pulse 85 Temp (Src) 97.5 (Temporal) Resp 16 Ht 5' 6.811 (1.70m) Wt 156 lb 15.5 oz (71.2kg) SpO2 100% BMI 24.72 kg/(m^2). Wt 79.4 kg (175 lb) BMI 26.61 kg/m2 Last 3 Encounter Wt Readings: Date: Wt: 03/06/2020 79.4 kg (175 lb) 02/14/2020 84.9 kg (187 lb 2.7 oz) 02/14/2020 82.2 kg (181 lb 3.2 oz) General appearance:ECOG PERFORMANCE STATUS: 1- Restricted in physically strenuous activity. Carries out light duty. Patient in NAD. Skin: Skin color, texture, turgor normal. No rashes or lesions. Eyes: Anicteric sclera. Pupils are equally round and reactive to light. Extraocular movements are intact. Lymph Nodes: No cervical, supraclavicular, axillary or inguinal adenopathy. Oropharynx: Lips, mucosa, and tongue normal. Back: No pain to percussion. Negative SLR test Lungs clear to auscultation, No wheezing or rhonchi Heart: RRR without murmur, gallop, or rubs. Abdomen: Abdomen is soft but there is purulent drainage from around the pigtail catheter as well as the laparoscopic ports. Minimal tenderness. No rebound or guarding. Extremities: No deformities. No edema Neuro: Gait and speech normal. Reflexes normal and symmetric. Muscular strength intact. Sensation grossly intact. Rectal: Deferred : Deferred LABS: Glucose (mg/dL) Date Value 08/02/2023 149 02/11/2021 104 Potassium (mmol/L) Date Value 08/02/2023 4.0 02/11/2021 4.0 Sodium (mmol/L) Date Value 08/02/2023 139 02/11/2021 139 Chloride (mmol/L) Date Value 08/02/2023 105 02/11/2021 105 CO2 (mmol/L) Date Value 08/02/2023 24 02/11/2021 25 Creatinine (mg/dL) Date Value 08/02/2023 0.86 02/11/2021 0.49 BUN (mg/dL) Date Value 08/02/2023 20 02/11/2021 6 Anion Gap (mmol/L) Date Value 08/02/2023 10 02/11/2021 9 Calcium (mg/dL) Date Value 02/11/2021 9.5 Calcium, Total (mg/dL) Date Value 08/02/2023 10.4 Protein, Total (g/dL) Date Value 08/02/2023 6.5 02/11/2021 5.5 Albumin (g/dL) Date Value 08/02/2023 3.9 02/11/2021 2.5 Bilirubin, Total (mg/dL) Date Value 08/02/2023 1.0 02/11/2021 0.5 Alkaline Phosphatase (U/L) Date Value 08/02/2023 137 02/11/2021 84 AST (U/L) Date Value 08/02/2023 13 02/11/2021 10 ALT (U/L) Date Value 08/02/2023 12 02/11/2021 9 WBC Date Value Ref Range Status 08/02/2023 5.38 3.70 - 11.00 k/uL Final RBC Date Value Ref Range Status 08/02/2023 3.03 (L) 4.20 - 6.00 m/uL Final Hemoglobin Date Value Ref Range Status 08/02/2023 10.3 (L) 13.0 - 17.0 g/dL Final Hematocrit Date Value Ref Range Status 08/02/2023 31.6 (L) 39.0 - 51.0 % Final MCV Date Value Ref Range Status 08/02/2023 104.3 (H) 80.0 - 100.0 fL Final MCH Date Value Ref Range Status 08/02/2023 34.0 26.0 - 34.0 pg Final MCHC Date Value Ref Range Status 08/02/2023 32.6 30.5 - 36.0 g/dL Final RDW-CV Date Value Ref Range Status 08/02/2023 17.4 (H) 11.5 - 15.0 % Final Platelet Count Date Value Ref Range Status 08/02/2023 224 150 - 400 k/uL Final MPV Date Value Ref Range Status 08/02/2023 9.2 9.0 - 12.7 fL Final Abs Neut Date Value Ref Range Status 08/02/2023 3.50 1.45 - 7.50 k/uL Final Lymphocytes % Date Value Ref Range Status 08/02/2023 24.0 % Final Abs Lymph Date Value Ref Range Status 08/02/2023 1.29 1.00 - 4.00 k/uL Final Monocytes % Date Value Ref Range Status 08/02/2023 8.9 % Final Abs [place] Date Value Ref Range Status 08/02/2023 0.48 <0.87 k/uL Final Eosin% Date Value Ref Range Status 12/05/2022 0.9 % Final Abs Eosin Date Value Ref Range Status 08/02/2023 0.07 <0.46 k/uL Final Basophils % Date Value Ref Range Status 08/02/2023 0.4 % Final Abs Baso Date Value Ref Range Status 08/02/2023 <0.03 <0.11 k/uL Final PATH: Whipple on November: SYNOPTIC REPORT OF MANJARREZ PATHOLOGIC FINDINGS WHIPPLE, GALLBLADER, OMENTUM: PANCREAS EXOCRINE WORKSHEET Specimen: Head of pancreas Body of pancreas Duodenum Stomach Common bile duct Gallbladder Procedure: Pancreaticoduodenectomy (Whipple resection), partial pancreatectomy Tumor Site: Pancreatic head Histologic Type: Ductal adenocarcinoma (NOS) Histologic Grade: G2: Moderately differentiated Tumor Size: Greatest dimension: 8.1 cm Microscopic Tumor Extension: Tumor invades duodenal wall Tumor invades peripancreatic soft tissues Tumor invades posterior surface of pancreas Tissue Specimen Type: Pancreaticoduodenal Resection Specimen Margins for Pancreaticoduodenal Resection Specimen: Pancreatic neck/parenchymal margin uninvolved by pancreatic high-grade intraepithelial neoplasia or invasive carcinoma Uncinate (retroperitoneal/superior mesentric artery) margin cannot be assessed Bile duct margin uninvolved by high-grade intraepithelial neoplasia or invasive carcinoma Proximal margin (Gastric or Duodenal) uninvolved by high-grade dysplasia or invasive carcinoma Distal margin (Duodenal or Jejunal) uninvolved by high-grade dysplasia or invasive carcinoma Treatment Effect: No known presurgical therapy Lymphovascular Invasion: Present Perineural Invasion: Present Pathologic Stage Classification (pTNM, AJCC 8th ed) TNM Descriptors: Not applicable Primary Tumor (pT): pT3: Tumor >4 cm in greatest dimension Regional lymph nodes (pN): pN2: Metastasis in four or more regional lymph nodes Number of lymph nodes involved: 7 Number of lymph nodes examined: 27 Distant Metastasis (pM): Not applicable/Not confirmed pathologically in this case Comment: Gallbladder with chronic cholecystitis and cholesterolosis. 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 Large fluid collection in the anterior abdominal wall which visualizes to the skin surface. This collection may arise near the pancreaticojejunostomy. 2. No definite findings to suggest metastatic disease in the abdomen or pelvis. 3. Calcifications within the urinary bladder, nonspecific. A urothelial lesion is not excluded. Consider urologic consultation. CT Pancreas 01/2022: 1. Since 03/15/2021, marked increase in central mesenteric and retroperitoneal lymphadenopathy, suspicious for disease progression. 2. 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 3. Unchanged ill-defined soft tissue surrounding the origin of the celiac artery and common hepatic artery, suspicious for recurrent neoplasm. 4. Status post Whipple procedure. A pancreatic duct stent remains in place. No new pancreatic ductal dilatation. 5. Unchanged heterogeneous attenuation of the pelvic marrow, nonspecific but favored to be secondary to marrow reconversion. Continued attention on subsequent studies is suggested. If warranted, consider further assessment with nuclear medicine bone scan. CT of the chest and Abd and Pelvis 05/2022: 1. Stable CT of the chest. Unchanged appearance of left lower lobe 4 mm nodule. No new or enlarging nodules are visualized. 2. Stable appearance of prominent lymph node in the anterior mediastinum. No new bulky intrathoracic adenopathy is seen. 3. Stable findings of prior granulomatous disease 1. Mesenteric and retroperitoneal lymphadenopathy as noted above. The majority of the visualized lymph nodes appear stable, however there is slight interval increase in size of an aortocaval node. Recommend continued follow-up. 2. Stable ill-defined soft tissue density/fat stranding in the origin of the celiac artery which may be on the basis of postsurgical change versus recurrent neoplasm. 3. Stable postsurgical changes in keeping with prior Whipple procedure. No pancreatic ductal dilation or recurrent mass is seen. 4. Previously described ill-defined soft tissue in the ellen hepatis is not well seen on the current study. CT Scan of the Chest and Abdomen and Pelvis 06/2022: 1. New reticulonodular opacities in the right lung, with an upper lung field predominance, most likely infectious/inflammatory in etiology. Consider follow-up to complete resolution. 2. Other subcentimeter nodular opacities measuring up to 7-8 mm, stable since 05/25/22 1. No interval change since 05/25/22. 2. Multiple mesenteric and peritoneal masses/lymphadenopathy, stable CT Scan of the Chest and Abdomen and Pelvis 10/2022: 1. Since 07/27/2022, decrease in right upper lobe tree-in-bud opacities, compatible with resolving infection/inflammation. 2. Additional nonspecific noncalcified pulmonary nodules measuring up to 0.7 cm are unchanged. 3. Unchanged 0.9 cm retrosternal nodule/lymph node. No progressive lymphadenopathy. 1. Since 07/27/2022, unchanged diffuse retroperitoneal and central mesenteric lymphadenopathy. Unchanged metastatic deposit along the anterior right kidney. 2. New geographic regions of hypodensity along the inferior margin of the left hepatic lobe, likely evolving sites of steatosis. Attention on subsequent studies is suggested. CT Scan of the Chest and Abdomen and Pelvis 04/2023: 1. Stable subcentimeter pulmonary nodules. 2. Areas of centrilobular nodularity in the right upper lobe and left lower lobe which could be due to bronchiolitis. Would advise continued attention on follow-up studies and clinical correlation. 3. Stable nonspecific 8 mm nodule in the prevascular space. This is unchanged when compared to multiple prior exams. 1. Worsening metastatic disease when compared to the prior study with worsening retroperitoneal adenopathy as described above. There is also worsening peritoneal carcinomatosis and a worsening subcutaneous nodule along the anterior abdominal wall. 2. Moderate to marked enlargement of the prostate gland. Assessment and Plan: Uriel Anderson is a 73 year old year old male here for follow up. T3, N2, M0, pancreatic adenocarcinoma. Patient with postoperative complications which precluded adjuvant chemo and did have additional admissions and procedures lastly a stent in the PJ stenosis in 04/2021. His CT, 01/2022 with sandy progression and he has recurrence. His initial disease state was very high risk. Post 4 cycles of therapy and with stable disease on CT 05/2022. Discussed the results and he wanted some time off chemo. Reviewed follow up imaging 10/2022 and still stable but he is more symptomatic and rising CA 19-9 and elected to restart [place] and Abraxane 11/23/2022. However, he had a very poor tolerance of therapy and has had declinind QOL. Therapy was held at that time 12/14/2022 Discussed the current status and rising CA 199 and options of no therapy, repeat chemo with dose modifications and or Xeloda. He wants to restart [place] and Abraxane, which he was on 02/01/2023 and dose reduced and have a 2 week on and 2 week off schedule. Slight delay due to Thanksgiving and URI, his neuropathy is worst and the Abraxane was stopped and continued [place]. CT 04/2023 wit progressive disease. I had a lisa discussion with Uriel and and daughter. Discussed hopsice vs. Second line chemo and the toxicities and he would like to proceed with the JULIA regimen. This was started on June 07, 2023. He appears to be tolerating therapy well. Will proceed and schdule imaging prior to the next cycle Continue nutrition follow up DM- Follow endocrine See back in 2 weeks for follow-up and labs. Will continue current course of therapy and will also schedule imaging Thank you for the kind referral. If there are any questions and or concerns please do not hesitate to contact me at [phone]. Grace Bess MD Hematology/Medical Oncology [facility] CC: Giovanni Hamlin MD I spent a total of 30 minutes on the date of the service which included preparing to see the patient, [id number] patient care, completing clinical documentation, obtaining and/or reviewing separately obtained history, performing a medically appropriate examination, counseling and educating the patient/family/caregiver, ordering medications, tests, or procedures, and independently interpreting results (not separately reported). documented in this encounter [facility] 07-19-[address] [facility] 07-19-[address] 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 Nutrition Intervention: -aim for small frequent meals/snacks - eat around the clock every 2-3 hours versus waiting on hunger cues -encouraged adequate hydration -aim for 60-64 ounces non-caffeine containing fluids -discussed supplementation -continue Ensure Plus (350 calories, 14g pro) or equivalent; goal of 2 per day -incorporate calorie/protein boosting techniques at meals/snacks Nutrition Monitoring & Evaluation: -PO Intake -Wt status -BM's -Supplement tolerance/acceptance -Biochemical Markers -Plan of care Date of last encounter: June 21, 2023 Patient met goal(s): Partially Patient's symptoms are: Behavioral: altered appetite Weight Concerns: weight loss Pt presents for nutrition counseling for pancreatic cancer Current Treatment: JULIA-- liposomal irinotecan, leucovorin, 5FU Previous Treatment(s): Whipple 12/04/2019, [place]/Abraxane Pt denies any chewing/swallowing issues, denies current N/V/D/C. Patient states he feels he is still eating well. He is eating at least 3 meals per day. He is not very forthcoming on what types of foods are consumed. He states is consuming at least 1 ONS per day. Reviewed weight trends and concerns of significant weight loss. Encouraged patient to increase frequency of eating and to consistently consume 2 ONS per day to help supplement intakes. Patient verbalized understanding. Thank you for allowing me to participate in the care of this pt. Readiness to Learn: Cognitive ability: Alert and oriented Motivation to learn: Interested Family support: Unable to assess - Family not present Instruction provided to: Patient Patient learns best by: Individual Instruction Factors affecting learning: None Physical limitations affecting learning: None Educational materials provided: none this visit Anthropometrics: Height: Last 1 Encounter Ht Readings: Date: Ht: 07/19/2023 169.7 cm (5' 6.81 ) Current weight: Last 1 Encounter Wt Readings: Date: Wt: 07/19/2023 71.5 kg (157 lb 10.1 oz) Estimated body mass index is 24.83 kg/m as calculated from the following: Height as of an earlier encounter on 07/19/23: 169.7 cm (5' 6.81 ). Weight as of an earlier encounter on 07/19/23: 71.5 kg (157 lb 10.1 oz). Resting Metabolic Rate: 1425 Weight Change: -2.5kg (3.4%) x 1 mo, not considered clinically significant -6.3kg (8.1%) x 3 mo, considered clinically significant -11.2kg (13.5%) x 6 mo, considered clinically significant Dosing Weight: 71.5 kg Estimated kilocalorie needs: 8502-1409 kilocalories determined by 30-35 kcal/kg Estimated protein needs: 72-107 grams determined by 1.0-1.5 g/kg Dosing weight Estimated fluid needs: ~3545-4746 milliliters based on 1 mL per kcal (unless otherwise indicated) Nutrition Focused Physical Exam: Unable to perform exam due to potential for patient discomfort (physical/emotional), will re-attempt during reassessment. Potential Signs of Inflammation: chronic condition Allergies: Patient has no known allergies. Medications: Current Outpatient Medications Medication Sig Dispense Refill prochlorperazine (COMPAZINE) 10 mg tablet Take 1 tablet by mouth every 6 hours as needed. 100 tablet 2 ondansetron (ZOFRAN) 8 mg tablet Take 1 tablet by mouth every 8 hours as needed for nausea/vomiting. 90 tablet 2 insulin glargine U-300 conc (TOUJEO MAX U-300 SOLOSTAR) 300 unit/mL (3 mL) inpn Inject 300 mL subcutaneously once daily. At night NOVOLIN 70-30 FLEXPEN U-100 100 unit/mL (70-30) pen INJECT 25 UNITS SUBCUTANEOUSLY IN THE MORNING then INJECT 25 UNITS SUBCUTANEOUSLY IN THE EVENING before a meal tamsulosin (FLOMAX) 0.4 mg Take 0.4 mg by mouth once daily. cholecalciferol, vitamin D3, (VITAMIN D3 ORAL) Take 1,000 Units by mouth once daily. ZINC ORAL Take 50 mcg by mouth once daily. multivit-min/ferrous fumarate (MULTI VITAMIN ORAL) Take by mouth once daily. finasteride (PROSCAR) 5 mg tablet Take 5 mg by mouth once daily. pantoprazole DR (PROTONIX) 20 mg tablet Take 1 tablet by mouth once daily. 30 tablet 5 No current facility-administered medications for this visit. Facility-Administered Medications Ordered in Other Visits Medication Dose Route Frequency Provider Last Rate Last Admin palonosetron 0.25 mg injection (ALOXI) 0.25 mg INTRAVENOUS ONCE Grace Bess MD dexAMETHasone 10 mg in NaCl 0.9% 50 mL (DECADRON) 10 mg INTRAVENOUS ONCE Grace Bess MD hyoscyamine sublingual 0.25 mg tab(s) (LEVSIN SL) 0.25 mg SUBLINGUAL ONCE Grace Bess MD irinotecan liposomal (ONIVYDE) 129 mg in NaCl 0.9% 570 mL 70 mg/m2 (Treatment Plan Recorded) INTRAVENOUS ONCE Grace Bess MD leucovorin 756 mg in NaCl 0.9% 95.8 mL 400 mg/m2 (Treatment Plan Recorded) INTRAVENOUS ONCE Grace Bess MD fluorouracil (ADRUCIL) 4,500 mg in NaCl 0.9% 102 mL in empty bag 2,400 mg/m2 (Treatment Plan Recorded) INTRAVENOUS ONCE Grace Bess MD atropine 0.4 mg injection 0.4 mg INTRAVENOUS PRN Grace Bess MD NaCl 0.9% iv infusion 500-999 mL/hr INTRAVENOUS PRN Grace Bess MD diphenhydrAMINE 50 mg injection (BENADRYL) 50 mg INTRAVENOUS PRN Grace Bess MD hydrocortisone sodium succinate (PF) 100 mg injection (Solu-CORTEF) 100 mg INTRAVENOUS PRN Grace Bess MD EPINEPHrine 1 mg/mL (1 mL) 0.3 mg injection 0.3 mg INTRAMUSCULAR PRN Grace Bess MD sodium chloride 0.9 % (flush) 10-20 mL (BD POSIFLUSH) 10-20 mL INTRAVENOUS DIRECTED PRN Grace Bess MD fentaNYL 50 mcg/mL injection (SUBLIMAZE) INTRAVENOUS PRN Gisele Carmona AA Need for Follow up: will continue to follow Referred by: Rashard TERAN Billing Type: Re-assess/15 min 1 unit Time Spent with Patient: 15 minutes Signed by: Ibis Buchanan MS, RDN, LD documented in this encounter [facility] 07-19-2023 History of Present illness Narrative PATIENT NAME: Uriel Anderson CLINIC NO.: [id number] ATTENDING PHYSICIAN: Grace Bess MD DATE OF SERVICE: July 19, 2023 Some of the elements of this note have been copied from my previous progress note dated 07/05/2023. All the information has been reviewed carefully. Dear Dr. Hamlin here is an update on a follow up visit on male Uriel Anderson at the clinic July 05, 2023. Diagnosis: 1. T3, N2, M0 pancreatic cancer. Tumor is 8.1 cm, moderately differentiated adenocarcinoma, tumor invades duodenal wall, peripancreatic soft tissue. Margins were negative. Lymphovascular space invasion was present, perineural invasion was present. Metastatic disease in 7 of 27 lymph nodes. 2. NGS Tissue Based: KRAS [id number], EGFR amplified and RAC 1 Amplified , GIBRAN and TMB low, Liquid Based 03/2022: KRAS, APC and RON mutation as well. Treatment History: Germline Testing: Negative 1. Diagnostic laparoscopy, pancreaticoduodenectomy, hepaticojejunostomy, pancreatico jejunostomy and gastrojejunostomy on December 04, 2019. Operative findings very bulky pancreatic head mass with significant adenopathy. Large SMA lymph node which appeared to be right at the onset of margin and was completed dissected off the SMA. 2. Post op complication and did not receive adjuvant chemo. 3. 04/2021: Successful sphincterotomy and dilation of pancreaticojejunostomy stricture and placement of an 8mm covered stent 4. CT 01/2022- Recurrence. 5. [place] and Abraxane 03/16/2022-05/11/2022 ( elected to stop chemo). 6. Resumed [place] and Abraxane 11/23/2022- 12/14/2022- Stopped due to poor tolerance 7. Restarted [place] and Abraxane dose reduced, 2 week on and 2 weeks off 02/01/2023, Worsening Neuropathy and Abraxane stopped 05/05/2023- CT 04/2023 with progressive disease. 8. JULIA 06/07/2023. HPI: Uriel Anderson returns for follow-up and continued treatment. He has mild numbness/tingling to his pinkies . He has both diarrhea and constipation. He takes Imodium and Metamucil. He continues to have mid abdominal pain. No nausea or vomiting. He denies mouth sores. No fevers, chills, night sweats or signs/symptoms of infection. No bleeding or abnormal bruising. PAST MEDICAL HISTORY Diagnosis Date Acute bilateral deep vein thrombosis (DVT) of upper extremities (HCC) Adenocarcinoma of head of pancreas (HCC) Diabetes mellitus due to underlying condition with diabetic polyneuropathy, without long-term current use of insulin ([facility]) 06/07/2023 Gastric outlet obstruction Obstructive sleep apnea Social History Tobacco Use Smoking status: Former Packs/day: 1.00 Years: 35.00 Additional pack years: 0.00 Total pack years: 35.00 Types: Cigarettes Quit date: 2018 Years since quittin.1 Passive exposure: Past Smokeless tobacco: Never Vaping Use Vaping Use: Never used Substance Use Topics Alcohol use: Not Currently Drug use: Never FAMILY HISTORY Problem Relation Age of Onset Anesthesia Problems No Family History Past medical, social and family history reviewed without any changes. REVIEW OF SYSTEMS General: No weight loss, malaise or fevers. No night sweats. Positive fatigue. HEENT: Negative for headaches, No changes in hearing or vision, no nose bleeds or other nasal problems. Respiratory: Negative for cough, wheezing and shortness of breath. Cardiovascular: Negative for chest pain, leg swelling and palpitations. GI: Negative for abdominal discomfort, blood in stools or black stools and change in bowel habits. Constipation. : Negative for dysuria, frequency and incontinence. Musculoskeletal: Negative for joint pain or swelling, back pain and muscle pain. Skin: Negative for lesions, rash and itching. Hematology/Lymphology: Negative for prolonged bleeding, bruising easily, and swollen nodes. Neuro: See HPI. PHYSICAL EXAMINATION: BP 100/58 Pulse 67 Temp (Src) 97.6 (Temporal) Resp 16 Ht 5' 6.811 (1.70m) Wt 157 lb 10.1 oz (71.5kg) SpO2 99% BMI 24.83 kg/(m^2). General appearance:ECOG PERFORMANCE STATUS: 1- Restricted in physically strenuous activity. Carries out light duty. Patient in NAD. Exam limited to gross visualization where appropriate. Gen.: This is an age-appropriate patient in no acute distress. Head: Appears atraumatic with no visible lesions. Eyes: Pupils equally round and reactive to light, extraocular muscles are intact. Neck: Supple. Respiratory: Appears to be respiring comfortably. Neurologic: Nonfocal to gross visualization. Alert and oriented 3. Psychiatric: No evidence of inappropriate anxiety or depression. Skin: Visible areas of skin without rash, lesions, wounds or petechiae. LABS: Glucose (mg/dL) Date Value 07/19/2023 152 02/11/2021 104 Potassium (mmol/L) Date Value 07/19/2023 3.7 02/11/2021 4.0 Sodium (mmol/L) Date Value 07/19/2023 139 02/11/2021 139 Chloride (mmol/L) Date Value 07/19/2023 106 02/11/2021 105 CO2 (mmol/L) Date Value 07/19/2023 22 02/11/2021 25 Creatinine (mg/dL) Date Value 07/19/2023 0.83 02/11/2021 0.49 BUN (mg/dL) Date Value 07/19/2023 14 02/11/2021 6 Anion Gap (mmol/L) Date Value 07/19/2023 11 02/11/2021 9 Calcium (mg/dL) Date Value 02/11/2021 9.5 Calcium, Total (mg/dL) Date Value 07/19/2023 10.7 Protein, Total (g/dL) Date Value 07/19/2023 6.3 02/11/2021 5.5 Albumin (g/dL) Date Value 07/19/2023 3.8 02/11/2021 2.5 Bilirubin, Total (mg/dL) Date Value 07/19/2023 1.2 02/11/2021 0.5 Alkaline Phosphatase (U/L) Date Value 07/19/2023 136 02/11/2021 84 AST (U/L) Date Value 07/19/2023 24 02/11/2021 10 ALT (U/L) Date Value 07/19/2023 29 02/11/2021 9 WBC Date Value Ref Range Status 07/19/2023 5.96 3.70 - 11.00 k/uL Final RBC Date Value Ref Range Status 07/19/2023 3.10 (L) 4.20 - 6.00 m/uL Final Hemoglobin Date Value Ref Range Status 07/19/2023 10.5 (L) 13.0 - 17.0 g/dL Final Hematocrit Date Value Ref Range Status 07/19/2023 32.0 (L) 39.0 - 51.0 % Final MCV Date Value Ref Range Status 07/19/2023 103.2 (H) 80.0 - 100.0 fL Final MCH Date Value Ref Range Status 07/19/2023 33.9 26.0 - 34.0 pg Final MCHC Date Value Ref Range Status 07/19/2023 32.8 30.5 - 36.0 g/dL Final RDW-CV Date Value Ref Range Status 07/19/2023 17.9 (H) 11.5 - 15.0 % Final Platelet Count Date Value Ref Range Status 07/19/2023 231 150 - 400 k/uL Final MPV Date Value Ref Range Status 07/19/2023 9.5 9.0 - 12.7 fL Final Abs Neut Date Value Ref Range Status 07/19/2023 3.90 1.45 - 7.50 k/uL Final Lymphocytes % Date Value Ref Range Status 07/19/2023 24.2 % Final Abs Lymph Date Value Ref Range Status 07/19/2023 1.44 1.00 - 4.00 k/uL Final Monocytes % Date Value Ref Range Status 07/19/2023 7.7 % Final Abs [place] Date Value Ref Range Status 07/19/2023 0.46 <0.87 k/uL Final Eosin% Date Value Ref Range Status 12/05/2022 0.9 % Final Abs Eosin Date Value Ref Range Status 07/19/2023 0.09 <0.46 k/uL Final Basophils % Date Value Ref Range Status 07/19/2023 0.7 % Final Abs Baso Date Value Ref Range Status 07/19/2023 0.04 <0.11 k/uL Final PATH: Tahmina on November: SYNOPTIC REPORT OF MANJARREZ PATHOLOGIC FINDINGS WHIPPLE, GALLBLADER, OMENTUM: PANCREAS EXOCRINE WORKSHEET Specimen: Head of pancreas Body of pancreas Duodenum Stomach Common bile duct Gallbladder Procedure: Pancreaticoduodenectomy (Whipple resection), partial pancreatectomy Tumor Site: Pancreatic head Histologic Type: Ductal adenocarcinoma (NOS) Histologic Grade: G2: Moderately differentiated Tumor Size: Greatest dimension: 8.1 cm Microscopic Tumor Extension: Tumor invades duodenal wall Tumor invades peripancreatic soft tissues Tumor invades posterior surface of pancreas Tissue Specimen Type: Pancreaticoduodenal Resection Specimen Margins for Pancreaticoduodenal Resection Specimen: Pancreatic neck/parenchymal margin uninvolved by pancreatic high-grade intraepithelial neoplasia or invasive carcinoma Uncinate (retroperitoneal/superior mesentric artery) margin cannot be assessed Bile duct margin uninvolved by high-grade intraepithelial neoplasia or invasive carcinoma Proximal margin (Gastric or Duodenal) uninvolved by high-grade dysplasia or invasive carcinoma Distal margin (Duodenal or Jejunal) uninvolved by high-grade dysplasia or invasive carcinoma Treatment Effect: No known presurgical therapy Lymphovascular Invasion: Present Perineural Invasion: Present Pathologic Stage Classification (pTNM, AJCC 8th ed) TNM Descriptors: Not applicable Primary Tumor (pT): pT3: Tumor >4 cm in greatest dimension Regional lymph nodes (pN): pN2: Metastasis in four or more regional lymph nodes Number of lymph nodes involved: 7 Number of lymph nodes examined: 27 Distant Metastasis (pM): Not applicable/Not confirmed pathologically in this case Comment: Gallbladder with chronic cholecystitis and cholesterolosis. 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 Large fluid collection in the anterior abdominal wall which visualizes to the skin surface. This collection may arise near the pancreaticojejunostomy. 2. No definite findings to suggest metastatic disease in the abdomen or pelvis. 3. Calcifications within the urinary bladder, nonspecific. A urothelial lesion is not excluded. Consider urologic consultation. CT Pancreas 01/2022: 1. Since 03/15/2021, marked increase in central mesenteric and retroperitoneal lymphadenopathy, suspicious for disease progression. 2. 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 3. Unchanged ill-defined soft tissue surrounding the origin of the celiac artery and common hepatic artery, suspicious for recurrent neoplasm. 4. Status post Whipple procedure. A pancreatic duct stent remains in place. No new pancreatic ductal dilatation. 5. Unchanged heterogeneous attenuation of the pelvic marrow, nonspecific but favored to be secondary to marrow reconversion. Continued attention on subsequent studies is suggested. If warranted, consider further assessment with nuclear medicine bone scan. CT of the chest and Abd and Pelvis 05/2022: 1. Stable CT of the chest. Unchanged appearance of left lower lobe 4 mm nodule. No new or enlarging nodules are visualized. 2. Stable appearance of prominent lymph node in the anterior mediastinum. No new bulky intrathoracic adenopathy is seen. 3. Stable findings of prior granulomatous disease 1. Mesenteric and retroperitoneal lymphadenopathy as noted above. The majority of the visualized lymph nodes appear stable, however there is slight interval increase in size of an aortocaval node. Recommend continued follow-up. 2. Stable ill-defined soft tissue density/fat stranding in the origin of the celiac artery which may be on the basis of postsurgical change versus recurrent neoplasm. 3. Stable postsurgical changes in keeping with prior Whipple procedure. No pancreatic ductal dilation or recurrent mass is seen. 4. Previously described ill-defined soft tissue in the ellen hepatis is not well seen on the current study. CT Scan of the Chest and Abdomen and Pelvis 06/2022: 1. New reticulonodular opacities in the right lung, with an upper lung field predominance, most likely infectious/inflammatory in etiology. Consider follow-up to complete resolution. 2. Other subcentimeter nodular opacities measuring up to 7-8 mm, stable since 05/25/22 1. No interval change since 05/25/22. 2. Multiple mesenteric and peritoneal masses/lymphadenopathy, stable CT Scan of the Chest and Abdomen and Pelvis 10/2022: 1. Since 07/27/2022, decrease in right upper lobe tree-in-bud opacities, compatible with resolving infection/inflammation. 2. Additional nonspecific noncalcified pulmonary nodules measuring up to 0.7 cm are unchanged. 3. Unchanged 0.9 cm retrosternal nodule/lymph node. No progressive lymphadenopathy. 1. Since 07/27/2022, unchanged diffuse retroperitoneal and central mesenteric lymphadenopathy. Unchanged metastatic deposit along the anterior right kidney. 2. New geographic regions of hypodensity along the inferior margin of the left hepatic lobe, likely evolving sites of steatosis. Attention on subsequent studies is suggested. CT Scan of the Chest and Abdomen and Pelvis 04/2023: 1. Stable subcentimeter pulmonary nodules. 2. Areas of centrilobular nodularity in the right upper lobe and left lower lobe which could be due to bronchiolitis. Would advise continued attention on follow-up studies and clinical correlation. 3. Stable nonspecific 8 mm nodule in the prevascular space. This is unchanged when compared to multiple prior exams. 1. Worsening metastatic disease when compared to the prior study with worsening retroperitoneal adenopathy as described above. There is also worsening peritoneal carcinomatosis and a worsening subcutaneous nodule along the anterior abdominal wall. 2. Moderate to marked enlargement of the prostate gland. Assessment and Plan: Uriel Anderson is a 73 year old year old male here for follow up and continued treatment. T3, N2, M0, pancreatic adenocarcinoma. Patient with postoperative complications which precluded adjuvant chemo and did have additional admissions and procedures lastly a stent in the PJ stenosis in 04/2021. His CT, 01/2022 with sandy progression and he has recurrence. His initial disease state was very high risk. Post 4 cycles of therapy and with stable disease on CT 05/2022. Discussed the results and he wanted some time off chemo. Reviewed follow up imaging 10/2022 and still stable but he is more symptomatic and rising CA 19-9 and elected to restart [place] and Abraxane 11/23/2022. However, he had a very poor tolerance of therapy and has had declinind QOL. Therapy was held at that time 12/14/2022. Discussed the current status and rising CA 199 and options of no therapy, repeat chemo with dose modifications and or Xeloda. He wants to restart [place] and Abraxane, which he was on 02/01/2023 and dose reduced and have a 2 week on and 2 week off schedule. Slight delay due to Thanksgiving and URI, his neuropathy is worst and the Abraxane was stopped and continued [place]. CT 04/2023 with progressive disease. We had a lisa discussion with Uriel and and daughter. Discussed hopsice vs. second line chemo and the toxicities and he would like to proceed with the JULIA regimen. This was started on June 07, 2023. He appears to be tolerating therapy well. Continue nutrition follow up. DM- Follow endocrine. Will proceed with treatment today. He will follow-up in 2 weeks to continue treatment. Thank you for the kind referral. If there are any questions and or concerns please do not hesitate to contact Dr. Bess at [phone]. Yordy Moncada APRN.CNP Hematology/Medical Oncology [facility] CC: Giovanni Hamlin MD I spent a total of 30 minutes on the date of the service which included preparing to see the patient, [id number] patient care, completing clinical documentation, obtaining and/or reviewing separately obtained history, performing a medically appropriate examination, counseling and educating the patient/family/caregiver, ordering medications, tests, or procedures, independently interpreting results (not separately reported), and communicating results to the patient/family/caregiver. documented in this encounter [facility] 07-05-[address] [facility] 07-05-2023 History of Present illness Narrative PATIENT NAME: Uriel Anderson [facility] NO.: [id number] ATTENDING PHYSICIAN: Grace Bses MD DATE OF SERVICE: July 05, 2023 Some of the elements of this note have been copied from my previous progress note dated 06/21/2023. All the information has been reviewed carefully. Dear Dr. Hamlin here is an update on a follow up visit on quincy Anderson at the clinic July 05, 2023. Diagnosis: 1. T3, N2, M0 pancreatic cancer. Tumor is 8.1 cm, moderately differentiated adenocarcinoma, tumor invades duodenal wall, peripancreatic soft tissue. Margins were negative. Lymphovascular space invasion was present, perineural invasion was present. Metastatic disease in 7 of 27 lymph nodes. 2. NGS Tissue Based: KRAS [id number], EGFR amplified and RAC 1 Amplified , GIBRAN and TMB low, Liquid Based 03/2022: KRAS, APC and RON mutation as well. Treatment History: Germline Testing: Negative 1. Diagnostic laparoscopy, pancreaticoduodenectomy, hepaticojejunostomy, pancreatico jejunostomy and gastrojejunostomy on December 04, 2019. Operative findings very bulky pancreatic head mass with significant adenopathy. Large SMA lymph node which appeared to be right at the onset of margin and was completed dissected off the SMA. 2. Post op complication and did not receive adjuvant chemo. 3. 04/2021: Successful sphincterotomy and dilation of pancreaticojejunostomy stricture and placement of an 8mm covered stent 4. CT 01/2022- Recurrence. 5. [place] and Abraxane 03/16/2022-05/11/2022 ( elected to stop chemo). 6. Resumed [place] and Abraxane 11/23/2022- 12/14/2022- Stopped due to poor tolerance 7. Restarted [place] and Abraxane dose reduced, 2 week on and 2 weeks off 02/01/2023, Worsening Neuropathy and Abraxane stopped 05/05/2023- CT 04/2023 with progressive disease. 8. JULIA 06/07/2023. HPI: Uriel Anderson is a 73 year old year old male here for follow up and continued treatment. He is here for cycle 3. Overall, he is tolerating treatment well. He denies any diarrhea. He has intermittent mid abdominal pain. He denies mouth sores. No hand-foot syndrome. No cold sensitivity. No fevers, chills, night sweats or signs/symptoms of infection. No bleeding or abnormal bruising. He states that he is eating great. His blood sugars have been running in the low 100s to up to 200. He feels well today and wishes to proceed with treatment as planned. PAST MEDICAL HISTORY Diagnosis Date Acute bilateral deep vein thrombosis (DVT) of upper extremities (HCC) Adenocarcinoma of head of pancreas (HCC) Diabetes mellitus due to underlying condition with diabetic polyneuropathy, without long-term current use of insulin ([facility]) 06/07/2023 Gastric outlet obstruction Obstructive sleep apnea Social History Tobacco Use Smoking status: Former Packs/day: 1.00 Years: 35.00 Additional pack years: 0.00 Total pack years: 35.00 Types: Cigarettes Quit date: 2018 Years since quittin.1 Passive exposure: Past Smokeless tobacco: Never Vaping Use Vaping Use: Never used Substance Use Topics Alcohol use: Not Currently Drug use: Never FAMILY HISTORY Problem Relation Age of Onset Anesthesia Problems No Family History Past medical, social and family history reviewed without any changes. REVIEW OF SYSTEMS General: No weight loss, malaise or fevers. No night sweats. Positive fatigue. HEENT: Negative for headaches, No changes in hearing or vision, no nose bleeds or other nasal problems. Respiratory: Negative for cough, wheezing and shortness of breath. Cardiovascular: Negative for chest pain, leg swelling and palpitations. GI: Negative for abdominal discomfort, blood in stools or black stools and change in bowel habits. Constipation. : Negative for dysuria, frequency and incontinence. Musculoskeletal: Negative for joint pain or swelling, back pain and muscle pain. Skin: Negative for lesions, rash and itching. Hematology/Lymphology: Negative for prolonged bleeding, bruising easily, and swollen nodes. Neuro: See HPI. PHYSICAL EXAMINATION: BP 96/68 Pulse 92 Temp (Src) 97 (Temporal) Resp 16 Ht 5' 6.811 (1.70m) Wt 159 lb 6.3 oz (72.3kg) SpO2 97% BMI 25.11 kg/(m^2). General appearance:ECOG PERFORMANCE STATUS: 1- Restricted in physically strenuous activity. Carries out light duty. Patient in NAD. Exam limited to gross visualization where appropriate. Gen.: This is an age-appropriate patient in no acute distress. Head: Appears atraumatic with no visible lesions. Eyes: Pupils equally round and reactive to light, extraocular muscles are intact. Neck: Supple. Respiratory: Appears to be respiring comfortably. Neurologic: Nonfocal to gross visualization. Alert and oriented 3. Psychiatric: No evidence of inappropriate anxiety or depression. Skin: Visible areas of skin without rash, lesions, wounds or petechiae. LABS: Glucose (mg/dL) Date Value 07/05/2023 164 02/11/2021 104 Potassium (mmol/L) Date Value 07/05/2023 3.6 02/11/2021 4.0 Sodium (mmol/L) Date Value 07/05/2023 139 02/11/2021 139 Chloride (mmol/L) Date Value 07/05/2023 106 02/11/2021 105 CO2 (mmol/L) Date Value 07/05/2023 23 02/11/2021 25 Creatinine (mg/dL) Date Value 07/05/2023 0.85 02/11/2021 0.49 BUN (mg/dL) Date Value 07/05/2023 19 02/11/2021 6 Anion Gap (mmol/L) Date Value 07/05/2023 10 02/11/2021 9 Calcium (mg/dL) Date Value 02/11/2021 9.5 Calcium, Total (mg/dL) Date Value 07/05/2023 10.3 Protein, Total (g/dL) Date Value 07/05/2023 6.3 02/11/2021 5.5 Albumin (g/dL) Date Value 07/05/2023 3.8 02/11/2021 2.5 Bilirubin, Total (mg/dL) Date Value 07/05/2023 1.3 02/11/2021 0.5 Alkaline Phosphatase (U/L) Date Value 07/05/2023 128 02/11/2021 84 AST (U/L) Date Value 07/05/2023 14 02/11/2021 10 ALT (U/L) Date Value 07/05/2023 24 02/11/2021 9 WBC Date Value Ref Range Status 07/05/2023 5.90 3.70 - 11.00 k/uL Final RBC Date Value Ref Range Status 07/05/2023 3.13 (L) 4.20 - 6.00 m/uL Final Hemoglobin Date Value Ref Range Status 07/05/2023 10.6 (L) 13.0 - 17.0 g/dL Final Hematocrit Date Value Ref Range Status 07/05/2023 32.0 (L) 39.0 - 51.0 % Final MCV Date Value Ref Range Status 07/05/2023 102.2 (H) 80.0 - 100.0 fL Final MCH Date Value Ref Range Status 07/05/2023 33.9 26.0 - 34.0 pg Final MCHC Date Value Ref Range Status 07/05/2023 33.1 30.5 - 36.0 g/dL Final RDW-CV Date Value Ref Range Status 07/05/2023 17.7 (H) 11.5 - 15.0 % Final Platelet Count Date Value Ref Range Status 07/05/2023 211 150 - 400 k/uL Final MPV Date Value Ref Range Status 07/05/2023 9.4 9.0 - 12.7 fL Final Abs Neut Date Value Ref Range Status 07/05/2023 4.04 1.45 - 7.50 k/uL Final Lymphocytes % Date Value Ref Range Status 07/05/2023 21.5 % Final Abs Lymph Date Value Ref Range Status 07/05/2023 1.27 1.00 - 4.00 k/uL Final Monocytes % Date Value Ref Range Status 07/05/2023 6.9 % Final Abs [place] Date Value Ref Range Status 07/05/2023 0.41 <0.87 k/uL Final Eosin% Date Value Ref Range Status 12/05/2022 0.9 % Final Abs Eosin Date Value Ref Range Status 07/05/2023 0.12 <0.46 k/uL Final Basophils % Date Value Ref Range Status 07/05/2023 0.7 % Final Abs Baso Date Value Ref Range Status 07/05/2023 0.04 <0.11 k/uL Final PATH: Whipple on November: SYNOPTIC REPORT OF MANJARREZ PATHOLOGIC FINDINGS HAMIPPLE, GALLRIGOBERTOADER, OMENTUM: PANCREAS EXOCRINE WORKSHEET Specimen: Head of pancreas Body of pancreas Duodenum Stomach Common bile duct Gallbladder Procedure: Pancreaticoduodenectomy (Whipple resection), partial pancreatectomy Tumor Site: Pancreatic head Histologic Type: Ductal adenocarcinoma (NOS) Histologic Grade: G2: Moderately differentiated Tumor Size: Greatest dimension: 8.1 cm Microscopic Tumor Extension: Tumor invades duodenal wall Tumor invades peripancreatic soft tissues Tumor invades posterior surface of pancreas Tissue Specimen Type: Pancreaticoduodenal Resection Specimen Margins for Pancreaticoduodenal Resection Specimen: Pancreatic neck/parenchymal margin uninvolved by pancreatic high-grade intraepithelial neoplasia or invasive carcinoma Uncinate (retroperitoneal/superior mesentric artery) margin cannot be assessed Bile duct margin uninvolved by high-grade intraepithelial neoplasia or invasive carcinoma Proximal margin (Gastric or Duodenal) uninvolved by high-grade dysplasia or invasive carcinoma Distal margin (Duodenal or Jejunal) uninvolved by high-grade dysplasia or invasive carcinoma Treatment Effect: No known presurgical therapy Lymphovascular Invasion: Present Perineural Invasion: Present Pathologic Stage Classification (pTNM, AJCC 8th ed) TNM Descriptors: Not applicable Primary Tumor (pT): pT3: Tumor >4 cm in greatest dimension Regional lymph nodes (pN): pN2: Metastasis in four or more regional lymph nodes Number of lymph nodes involved: 7 Number of lymph nodes examined: 27 Distant Metastasis (pM): Not applicable/Not confirmed pathologically in this case Comment: Gallbladder with chronic cholecystitis and cholesterolosis. 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 Large fluid collection in the anterior abdominal wall which visualizes to the skin surface. This collection may arise near the pancreaticojejunostomy. 2. No definite findings to suggest metastatic disease in the abdomen or pelvis. 3. Calcifications within the urinary bladder, nonspecific. A urothelial lesion is not excluded. Consider urologic consultation. CT Pancreas 01/2022: 1. Since 03/15/2021, marked increase in central mesenteric and retroperitoneal lymphadenopathy, suspicious for disease progression. 2. 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 3. Unchanged ill-defined soft tissue surrounding the origin of the celiac artery and common hepatic artery, suspicious for recurrent neoplasm. 4. Status post Whipple procedure. A pancreatic duct stent remains in place. No new pancreatic ductal dilatation. 5. Unchanged heterogeneous attenuation of the pelvic marrow, nonspecific but favored to be secondary to marrow reconversion. Continued attention on subsequent studies is suggested. If warranted, consider further assessment with nuclear medicine bone scan. CT of the chest and Abd and Pelvis 05/2022: 1. Stable CT of the chest. Unchanged appearance of left lower lobe 4 mm nodule. No new or enlarging nodules are visualized. 2. Stable appearance of prominent lymph node in the anterior mediastinum. No new bulky intrathoracic adenopathy is seen. 3. Stable findings of prior granulomatous disease 1. Mesenteric and retroperitoneal lymphadenopathy as noted above. The majority of the visualized lymph nodes appear stable, however there is slight interval increase in size of an aortocaval node. Recommend continued follow-up. 2. Stable ill-defined soft tissue density/fat stranding in the origin of the celiac artery which may be on the basis of postsurgical change versus recurrent neoplasm. 3. Stable postsurgical changes in keeping with prior Whipple procedure. No pancreatic ductal dilation or recurrent mass is seen. 4. Previously described ill-defined soft tissue in the ellen hepatis is not well seen on the current study. CT Scan of the Chest and Abdomen and Pelvis 06/2022: 1. New reticulonodular opacities in the right lung, with an upper lung field predominance, most likely infectious/inflammatory in etiology. Consider follow-up to complete resolution. 2. Other subcentimeter nodular opacities measuring up to 7-8 mm, stable since 05/25/22 1. No interval change since 05/25/22. 2. Multiple mesenteric and peritoneal masses/lymphadenopathy, stable CT Scan of the Chest and Abdomen and Pelvis 10/2022: 1. Since 07/27/2022, decrease in right upper lobe tree-in-bud opacities, compatible with resolving infection/inflammation. 2. Additional nonspecific noncalcified pulmonary nodules measuring up to 0.7 cm are unchanged. 3. Unchanged 0.9 cm retrosternal nodule/lymph node. No progressive lymphadenopathy. 1. Since 07/27/2022, unchanged diffuse retroperitoneal and central mesenteric lymphadenopathy. Unchanged metastatic deposit along the anterior right kidney. 2. New geographic regions of hypodensity along the inferior margin of the left hepatic lobe, likely evolving sites of steatosis. Attention on subsequent studies is suggested. CT Scan of the Chest and Abdomen and Pelvis 04/2023: 1. Stable subcentimeter pulmonary nodules. 2. Areas of centrilobular nodularity in the right upper lobe and left lower lobe which could be due to bronchiolitis. Would advise continued attention on follow-up studies and clinical correlation. 3. Stable nonspecific 8 mm nodule in the prevascular space. This is unchanged when compared to multiple prior exams. 1. Worsening metastatic disease when compared to the prior study with worsening retroperitoneal adenopathy as described above. There is also worsening peritoneal carcinomatosis and a worsening subcutaneous nodule along the anterior abdominal wall. 2. Moderate to marked enlargement of the prostate gland. Assessment and Plan: Uriel Anderson is a 73 year old year old male here for follow up and continued treatment. T3, N2, M0, pancreatic adenocarcinoma. Patient with postoperative complications which precluded adjuvant chemo and did have additional admissions and procedures lastly a stent in the PJ stenosis in 04/2021. His CT, 01/2022 with sandy progression and he has recurrence. His initial disease state was very high risk. Post 4 cycles of therapy and with stable disease on CT 05/2022. Discussed the results and he wanted some time off chemo. Reviewed follow up imaging 10/2022 and still stable but he is more symptomatic and rising CA 19-9 and elected to restart [place] and Abraxane 11/23/2022. However, he had a very poor tolerance of therapy and has had declinind QOL. Therapy was held at that time 12/14/2022. Discussed the current status and rising CA 199 and options of no therapy, repeat chemo with dose modifications and or Xeloda. He wants to restart [place] and Abraxane, which he was on 02/01/2023 and dose reduced and have a 2 week on and 2 week off schedule. Slight delay due to Thanksgiving and URI, his neuropathy is worst and the Abraxane was stopped and continued [place]. CT 04/2023 with progressive disease. We had a lisa discussion with Uriel and and daughter. Discussed hopsice vs. second line chemo and the toxicities and he would like to proceed with the JULIA regimen. This was started on June 07, 2023. He appears to be tolerating therapy well. Proceed with cycle 3. Continue nutrition follow up. DM- Follow endocrine. See back in 2 weeks for follow-up and labs. Will continue current course of therapy. Thank you for the kind referral. If there are any questions and or concerns please do not hesitate to contact Dr. Bess at [phone]. Yordy Moncada APRN.ROBERT Hematology/Medical Oncology [facility] CC: Giovanni Hamlin MD I spent a total of 30 minutes on the date of the service which included preparing to see the patient, [id number] patient care, completing clinical documentation, obtaining and/or reviewing separately obtained history, performing a medically appropriate examination, counseling and educating the patient/family/caregiver, ordering medications, tests, or procedures, independently interpreting results (not separately reported), and communicating results to the patient/family/caregiver. documented in this encounter [facility] 06-23-2023 Miscellaneous Notes Pt's calls requesting tumor marker results. Notified her that they were not drawn at his visit on Monday, and are ordered for next time. Josephine Salomon RN documented in this encounter [facility] 06-21-[address] [facility] 06-21-[address] [facility] 06-07-[address] [facility] 06-07-[address] [facility] 06-07-[address] [facility] 05-24-[address] [facility] 05-18-[address] [facility] 05-18-[address] [facility] 05-12-[address] [facility] 05-05-2023 Note HNO ID: [id number] Author: Daja Carnes RN Service: ? 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 Daja Carnes RN [facility] 05-05-[address] [facility] 05-05-2023 History of Present illness Narrative It was confirmed with to hold abraxane today due to worsening neuropathy. Daja Carnes RN documented in this encounter [facility] 05-05-2023 History of Present illness Narrative PATIENT NAME: Uriel Anderson [facility] NO.: [id number] ATTENDING PHYSICIAN: Grace Bess MD DATE OF SERVICE: May 05, 2023 Some of the elements of this note have been copied from my previous progress note dated 03/08/2023. All the information has been reviewed carefully. Dear Dr. Hamlin here is an update on a follow up visit on male Uriel Anderson at the clinic May 05, 2023 Diagnosis: 1. T3, N2, M0 pancreatic cancer. Tumor is 8.1 cm, moderately differentiated adenocarcinoma, tumor invades duodenal wall, peripancreatic soft tissue. Margins were negative. Lymphovascular space invasion was present, perineural invasion was present. Metastatic disease in 7 of 27 lymph nodes. 2. NGS Tissue Based: KRAS [id number], EGFR amplified and RAC 1 Amplified , GIBRAN and TMB low, Liquid Based 03/2022: KRAS, APC and RON mutation as well. Treatment History: Germline Testing: Negative 1. Diagnostic laparoscopy, pancreaticoduodenectomy, hepaticojejunostomy, pancreatico jejunostomy and gastrojejunostomy on December 04, 2019. Operative findings very bulky pancreatic head mass with significant adenopathy. Large SMA lymph node which appeared to be right at the onset of margin and was completed dissected off the SMA. 2. Post op complication and did not receive adjuvant chemo 3. 04/2021: Successful sphincterotomy and dilation of pancreaticojejunostomy stricture and placement of an 8mm covered stent 4. CT 01/2022- recurrence 5. [place] and Abraxane 03/16/2022-05/11/2022 ( elected to stop chemo) 6. Resumed [place] and Abraxane 11/23/2022- 12/14/2022- Stopped due to poor tolerance 7. Restarted [place] and Abraxane dose reduced, 2 week on and 2 weeks off 02/01/2023 HPI: Uriel Anderson is a 72 year old year old male here for follow up. He delayed chemo due to thanksgiving and also URI which is improving. He really does not want to be on chemo all the time. He also states that his neuropathy in the hands are worst. PAST MEDICAL HISTORY Diagnosis Date Acute bilateral deep vein thrombosis (DVT) of upper extremities (HCC) Adenocarcinoma of head of pancreas (HCC) Gastric outlet obstruction Obstructive sleep apnea Social History Tobacco Use Smoking status: Former Packs/day: 1.00 Years: 35.00 Additional pack years: 0.00 Total pack years: 35.00 Types: Cigarettes Quit date: 2018 Years since quittin.9 Passive exposure: Past Smokeless tobacco: Never Vaping Use Vaping Use: Never used Substance Use Topics Alcohol use: Not Currently Drug use: Never FAMILY HISTORY Problem Relation Age of Onset Anesthesia Problems No Family History Past medical, social and family history reviewed without any changes. REVIEW OF SYSTEMS GENERAL: No weight loss, malaise or fevers. No night sweats. HEENT: Negative for headaches, No changes in hearing or vision, no nose bleeds or other nasal problems. RESPIRATORY: Negative for cough, wheezing and shortness of breath CARDIOVASCULAR: Negative for chest pain, leg swelling and palpitations GI: Negative for abdominal discomfort, blood in stools or black stools and change in bowel habits : Negative for dysuria, frequency and incontinence MUSCULOSKELETAL: Negative for joint pain or swelling, back pain, and muscle pain. SKIN: Negative for lesions, rash, and itching. HEMATOLOGY/LYMPHOLOGY Negative for prolonged bleeding, bruising easily, and swollen nodes. NEURO: Negative for numbness or tingling of hands/feet. No weakness. PHYSICAL EXAMINATION: BP 137/80 Pulse 90 Temp (Src) 97 (Temporal) Resp 20 Ht 5' 7.48 (1.71m) Wt 162 lb 14.7 oz (73.9kg) SpO2 100% BMI 25.15 kg/(m^2). Wt 79.4 kg (175 lb) BMI 26.61 kg/m2 Last 3 Encounter Wt Readings: Date: Wt: 03/06/2020 79.4 kg (175 lb) 02/14/2020 84.9 kg (187 lb 2.7 oz) 02/14/2020 82.2 kg (181 lb 3.2 oz) General appearance:ECOG PERFORMANCE STATUS: 1- Restricted in physically strenuous activity. Carries out light duty. Patient in NAD. Skin: Skin color, texture, turgor normal. No rashes or lesions. Eyes: Anicteric sclera. Pupils are equally round and reactive to light. Extraocular movements are intact. Lymph Nodes: No cervical, supraclavicular, axillary or inguinal adenopathy. Oropharynx: Lips, mucosa, and tongue normal. Back: No pain to percussion. Negative SLR test Lungs clear to auscultation, No wheezing or rhonchi Heart: RRR without murmur, gallop, or rubs. Abdomen: Abdomen is soft but there is purulent drainage from around the pigtail catheter as well as the laparoscopic ports. Minimal tenderness. No rebound or guarding. Extremities: No deformities. No edema Neuro: Gait and speech normal. Reflexes normal and symmetric. Muscular strength intact. Sensation grossly intact. Rectal: Deferred : Deferred LABS: Glucose (mg/dL) Date Value 04/05/2023 122 02/11/2021 104 Potassium (mmol/L) Date Value 04/05/2023 4.1 02/11/2021 4.0 Sodium (mmol/L) Date Value 04/05/2023 134 02/11/2021 139 Chloride (mmol/L) Date Value 04/05/2023 101 02/11/2021 105 CO2 (mmol/L) Date Value 04/05/2023 25 02/11/2021 25 Creatinine (mg/dL) Date Value 04/05/2023 0.79 02/11/2021 0.49 BUN (mg/dL) Date Value 04/05/2023 21 02/11/2021 6 Anion Gap (mmol/L) Date Value 04/05/2023 8 02/11/2021 9 Calcium (mg/dL) Date Value 02/11/2021 9.5 Calcium, Total (mg/dL) Date Value 04/05/2023 10.9 Protein, Total (g/dL) Date Value 04/05/2023 7.1 02/11/2021 5.5 Albumin (g/dL) Date Value 04/05/2023 4.2 02/11/2021 2.5 Bilirubin, Total (mg/dL) Date Value 04/05/2023 1.2 02/11/2021 0.5 Alkaline Phosphatase (U/L) Date Value 04/05/2023 112 02/11/2021 84 AST (U/L) Date Value 04/05/2023 21 02/11/2021 10 ALT (U/L) Date Value 04/05/2023 18 02/11/2021 9 WBC Date Value Ref Range Status 05/05/2023 14.60 (H) 3.70 - 11.00 k/uL Final RBC Date Value Ref Range Status 05/05/2023 3.82 (L) 4.20 - 6.00 m/uL Final Hemoglobin Date Value Ref Range Status 05/05/2023 12.0 (L) 13.0 - 17.0 g/dL Final Hematocrit Date Value Ref Range Status 05/05/2023 36.8 (L) 39.0 - 51.0 % Final MCV Date Value Ref Range Status 05/05/2023 96.3 80.0 - 100.0 fL Final MCH Date Value Ref Range Status 05/05/2023 31.4 26.0 - 34.0 pg Final MCHC Date Value Ref Range Status 05/05/2023 32.6 30.5 - 36.0 g/dL Final RDW-CV Date Value Ref Range Status 05/05/2023 17.2 (H) 11.5 - 15.0 % Final Platelet Count Date Value Ref Range Status 05/05/2023 376 150 - 400 k/uL Final MPV Date Value Ref Range Status 05/05/2023 10.2 9.0 - 12.7 fL Final Abs Neut Date Value Ref Range Status 05/05/2023 11.22 (H) 1.45 - 7.50 k/uL Final Lymphocytes % Date Value Ref Range Status 05/05/2023 14.4 % Final Abs Lymph Date Value Ref Range Status 05/05/2023 2.10 1.00 - 4.00 k/uL Final Monocytes % Date Value Ref Range Status 05/05/2023 7.7 % Final Abs [place] Date Value Ref Range Status 05/05/2023 1.12 (H) <0.87 k/uL Final Eosinophils % Date Value Ref Range Status 05/05/2023 0.3 % Final Abs Eosin Date Value Ref Range Status 05/05/2023 0.04 <0.46 k/uL Final Basophils % Date Value Ref Range Status 05/05/2023 0.3 % Final Abs Baso Date Value Ref Range Status 05/05/2023 0.05 <0.11 k/uL Final PATH: Whipple on November: SYNOPTIC REPORT OF MANJARREZ PATHOLOGIC FINDINGS WHIPPLE, GALLBLADER, OMENTUM: PANCREAS EXOCRINE WORKSHEET Specimen: Head of pancreas Body of pancreas Duodenum Stomach Common bile duct Gallbladder Procedure: Pancreaticoduodenectomy (Whipple resection), partial pancreatectomy Tumor Site: Pancreatic head Histologic Type: Ductal adenocarcinoma (NOS) Histologic Grade: G2: Moderately differentiated Tumor Size: Greatest dimension: 8.1 cm Microscopic Tumor Extension: Tumor invades duodenal wall Tumor invades peripancreatic soft tissues Tumor invades posterior surface of pancreas Tissue Specimen Type: Pancreaticoduodenal Resection Specimen Margins for Pancreaticoduodenal Resection Specimen: Pancreatic neck/parenchymal margin uninvolved by pancreatic high-grade intraepithelial neoplasia or invasive carcinoma Uncinate (retroperitoneal/superior mesentric artery) margin cannot be assessed Bile duct margin uninvolved by high-grade intraepithelial neoplasia or invasive carcinoma Proximal margin (Gastric or Duodenal) uninvolved by high-grade dysplasia or invasive carcinoma Distal margin (Duodenal or Jejunal) uninvolved by high-grade dysplasia or invasive carcinoma Treatment Effect: No known presurgical therapy Lymphovascular Invasion: Present Perineural Invasion: Present Pathologic Stage Classification (pTNM, AJCC 8th ed) TNM Descriptors: Not applicable Primary Tumor (pT): pT3: Tumor >4 cm in greatest dimension Regional lymph nodes (pN): pN2: Metastasis in four or more regional lymph nodes Number of lymph nodes involved: 7 Number of lymph nodes examined: 27 Distant Metastasis (pM): Not applicable/Not confirmed pathologically in this case Comment: Gallbladder with chronic cholecystitis and cholesterolosis. 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 Large fluid collection in the anterior abdominal wall which visualizes to the skin surface. This collection may arise near the pancreaticojejunostomy. 2. No definite findings to suggest metastatic disease in the abdomen or pelvis. 3. Calcifications within the urinary bladder, nonspecific. A urothelial lesion is not excluded. Consider urologic consultation. CT Pancreas 01/2022: 1. Since 03/15/2021, marked increase in central mesenteric and retroperitoneal lymphadenopathy, suspicious for disease progression. 2. 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 3. Unchanged ill-defined soft tissue surrounding the origin of the celiac artery and common hepatic artery, suspicious for recurrent neoplasm. 4. Status post Whipple procedure. A pancreatic duct stent remains in place. No new pancreatic ductal dilatation. 5. Unchanged heterogeneous attenuation of the pelvic marrow, nonspecific but favored to be secondary to marrow reconversion. Continued attention on subsequent studies is suggested. If warranted, consider further assessment with nuclear medicine bone scan. CT of the chest and Abd and Pelvis 05/2022: 1. Stable CT of the chest. Unchanged appearance of left lower lobe 4 mm nodule. No new or enlarging nodules are visualized. 2. Stable appearance of prominent lymph node in the anterior mediastinum. No new bulky intrathoracic adenopathy is seen. 3. Stable findings of prior granulomatous disease 1. Mesenteric and retroperitoneal lymphadenopathy as noted above. The majority of the visualized lymph nodes appear stable, however there is slight interval increase in size of an aortocaval node. Recommend continued follow-up. 2. Stable ill-defined soft tissue density/fat stranding in the origin of the celiac artery which may be on the basis of postsurgical change versus recurrent neoplasm. 3. Stable postsurgical changes in keeping with prior Whipple procedure. No pancreatic ductal dilation or recurrent mass is seen. 4. Previously described ill-defined soft tissue in the ellen hepatis is not well seen on the current study. CT Scan of the Chest and Abdomen and Pelvis 06/2022: 1. New reticulonodular opacities in the right lung, with an upper lung field predominance, most likely infectious/inflammatory in etiology. Consider follow-up to complete resolution. 2. Other subcentimeter nodular opacities measuring up to 7-8 mm, stable since 05/25/22 1. No interval change since 05/25/22. 2. Multiple mesenteric and peritoneal masses/lymphadenopathy, stable CT Scan of the Chest and Abdomen and Pelvis 10/2022: 1. Since 07/27/2022, decrease in right upper lobe tree-in-bud opacities, compatible with resolving infection/inflammation. 2. Additional nonspecific noncalcified pulmonary nodules measuring up to 0.7 cm are unchanged. 3. Unchanged 0.9 cm retrosternal nodule/lymph node. No progressive lymphadenopathy. 1. Since 07/27/2022, unchanged diffuse retroperitoneal and central mesenteric lymphadenopathy. Unchanged metastatic deposit along the anterior right kidney. 2. New geographic regions of hypodensity along the inferior margin of the left hepatic lobe, likely evolving sites of steatosis. Attention on subsequent studies is suggested. Assessment and Plan: Uriel Anderson is a 72 year old year old male here for follow up. T3, N2, M0, pancreatic adenocarcinoma. Patient with postoperative complications which precluded adjuvant chemo and did have additional admissions and procedures lastly a stent in the PJ stenosis in 04/2021. His CT, 01/2022 with sandy progression and he has recurrence. His initial disease state was very high risk. Post 4 cycles of therapy and with stable disease on CT 05/2022. Discussed the results and he wanted some time off chemo. Reviewed follow up imaging 10/2022 and still stable but he is more symptomatic and rising CA 19-9 and elected to restart [place] and Abraxane 11/23/2022. However, he had a very poor tolerance of therapy and has had declinind QOL. Therapy was held at that time 12/14/2022 Discussed the current status and rising CA 199 and options of no therapy, repeat chemo with dose modifications and or Xeloda. He wants to restart [place] and Abraxane, which he was on 02/01/2023 and dose reduced and have a 2 week on and 2 week off schedule. Slight delay due to Thanksgiving and URI, his neuropathy is worst and will stop Abraxane and continue Gemzar only and plan on repeating imaging Continue nutrition follow up DM- Follow endocrine Gemzar only next week and MD exam and chemo and imaging in 3 weeks Overall I am concerned in regards to how long he can tolerate chemo and will monitor closely Thank you for the kind referral. If there are any questions and or concerns please do not hesitate to contact me at [phone]. Grace Bess MD Hematology/Medical Oncology [facility] CC: Giovanni Hamlin MD I spent a total of 30 minutes on the date of the service which included preparing to see the patient, [id number] patient care, completing clinical documentation, obtaining and/or reviewing separately obtained history, performing a medically appropriate examination, counseling and educating the patient/family/caregiver, ordering medications, tests, or procedures, and independently interpreting results (not separately reported). documented in this encounter [facility] 04-07-2023 Miscellaneous Notes Pt notified of results. Josephine Salomon RN ----- Message from Grace Bess MD sent at 04/07/2023 9:10 AM EST ----- Please call with tumor marker. documented in this encounter [facility] 04-05-[address] [facility] 04-05-2023 Miscellaneous Notes Addended by: YORDY MONCADA on: 04/05/2023 03:25 PM Modules accepted: Orders documented in this encounter [facility] 04-05-2023 History of Present illness Narrative PATIENT NAME: Uriel Gupta [facility] NO.: [id number] ATTENDING PHYSICIAN: Grace Bess MD DATE OF SERVICE: April 05, 2023 (Elements copied from AKSHAT Quan note dated March 30, 2023, have been reviewed and updated where appropriate, and all reflect current assessment and medical decision making during today's encounter, April 05, 2023) CC: Follow up and treatment. Diagnosis: 1. T3, N2, M0 pancreatic cancer. Tumor is 8.1 cm, moderately differentiated adenocarcinoma, tumor invades duodenal wall, peripancreatic soft tissue. Margins were negative. Lymphovascular space invasion was present, perineural invasion was present. Metastatic disease in 7 of 27 lymph nodes. 2. NGS Tissue Based: KRAS [id number], EGFR amplified and RAC 1 Amplified , GIBRAN and TMB low. Liquid Based 03/2022: KRAS, APC and RON mutation as well. Treatment History: Germline Testing: Negative 1. Diagnostic laparoscopy, pancreaticoduodenectomy, hepaticojejunostomy, pancreatico jejunostomy and gastrojejunostomy on December 04, 2019. Operative findings very bulky pancreatic head mass with significant adenopathy. Large SMA lymph node which appeared to be right at the onset of margin and was completed dissected off the SMA. 2. Post op complication and did not receive adjuvant chemo. 3. 04/2021: Successful sphincterotomy and dilation of pancreaticojejunostomy stricture and placement of an 8mm covered stent. 4. CT 01/2022- Recurrence. 5. [place] and Abraxane 03/16/2022-05/11/2022 ( elected to stop chemo) 6. Resumed [place] and Abraxane 11/23/2022- 12/14/2022- Stopped due to poor tolerance 7. Restarted [place] and Abraxane dose reduced, 2 week on and 2 weeks off 02/01/2023 HPI: Uriel Anderson returns for follow-up and cycle 3-day 8 gemcitabine and Abraxane. Overall, he is tolerating treatment fairly well. He just started the gabapentin on Monday. He has minimal improvement in his neuropathy in his fingers and toes. He has occasional constipation. He denies any abdominal pain. No fevers, chills, night sweats and signs/symptoms of infection. No bleeding or abnormal bruising. PAST MEDICAL HISTORY Diagnosis Date Acute bilateral deep vein thrombosis (DVT) of upper extremities (HCC) Adenocarcinoma of head of pancreas (HCC) Gastric outlet obstruction Obstructive sleep apnea Social History Tobacco Use Smoking status: Former Packs/day: 1.00 Years: 35.00 Additional pack years: 0.00 Total pack years: 35.00 Types: Cigarettes Quit date: 2019 Years since quittin.8 Passive exposure: Past Smokeless tobacco: Never Vaping Use Vaping Use: Never used Substance Use Topics Alcohol use: Not Currently Drug use: Never FAMILY HISTORY Problem Relation Age of Onset Anesthesia Problems No Family History Past medical, social and family history reviewed without any changes. REVIEW OF SYSTEMS General: No weight loss, malaise or fevers. No night sweats. Positive fatigue. HEENT: Negative for headaches, No changes in hearing or vision, no nose bleeds or other nasal problems. Respiratory: Negative for cough, wheezing and shortness of breath. Cardiovascular: Negative for chest pain, leg swelling and palpitations. GI: Negative for abdominal discomfort, blood in stools or black stools and change in bowel habits. Constipation. : Negative for dysuria, frequency and incontinence. Musculoskeletal: Negative for joint pain or swelling, back pain and muscle pain. Skin: Negative for lesions, rash and itching. Hematology/Lymphology: Negative for prolonged bleeding, bruising easily, and swollen nodes. Neuro: See HPI. PHYSICAL EXAMINATION: BP 100/69 Pulse 88 Temp (Src) 97.6 (Temporal) Resp 16 Ht 5' 7.48 (1.71m) Wt 171 lb 9.6 oz (77.8kg) SpO2 99% BMI 26.50 kg/(m^2). ECOG PERFORMANCE STATUS: 1- Restricted in physically strenuous activity. Carries out light duty. General: Alert and oriented, no distress, pleasant and cooperative. Heart: Regular, normal S1 and S2, no murmurs, rubs, or gallops. Lungs: Clear to auscultation bilaterally. Abdomen: Benign. Extremities: Feet/ankles without edema, posterior tibial pulses full and symmetrical. LABS: Glucose (mg/dL) Date Value 04/05/2023 122 02/11/2021 104 Potassium (mmol/L) Date Value 04/05/2023 4.1 02/11/2021 4.0 Sodium (mmol/L) Date Value 04/05/2023 134 02/11/2021 139 Chloride (mmol/L) Date Value 04/05/2023 101 02/11/2021 105 CO2 (mmol/L) Date Value 04/05/2023 25 02/11/2021 25 Creatinine (mg/dL) Date Value 04/05/2023 0.79 02/11/2021 0.49 BUN (mg/dL) Date Value 04/05/2023 21 02/11/2021 6 Anion Gap (mmol/L) Date Value 04/05/2023 8 02/11/2021 9 Calcium (mg/dL) Date Value 02/11/2021 9.5 Calcium, Total (mg/dL) Date Value 04/05/2023 10.9 Protein, Total (g/dL) Date Value 04/05/2023 7.1 02/11/2021 5.5 Albumin (g/dL) Date Value 04/05/2023 4.2 02/11/2021 2.5 Bilirubin, Total (mg/dL) Date Value 04/05/2023 1.2 02/11/2021 0.5 Alkaline Phosphatase (U/L) Date Value 04/05/2023 112 02/11/2021 84 AST (U/L) Date Value 04/05/2023 21 02/11/2021 10 ALT (U/L) Date Value 04/05/2023 18 02/11/2021 9 WBC Date Value Ref Range Status 04/05/2023 10.55 3.70 - 11.00 k/uL Final RBC Date Value Ref Range Status 04/05/2023 3.10 (L) 4.20 - 6.00 m/uL Final Hemoglobin Date Value Ref Range Status 04/05/2023 10.0 (L) 13.0 - 17.0 g/dL Final Hematocrit Date Value Ref Range Status 04/05/2023 30.3 (L) 39.0 - 51.0 % Final MCV Date Value Ref Range Status 04/05/2023 97.7 80.0 - 100.0 fL Final MCH Date Value Ref Range Status 04/05/2023 32.3 26.0 - 34.0 pg Final MCHC Date Value Ref Range Status 04/05/2023 33.0 30.5 - 36.0 g/dL Final RDW-CV Date Value Ref Range Status 04/05/2023 15.3 (H) 11.5 - 15.0 % Final Platelet Count Date Value Ref Range Status 04/05/2023 271 150 - 400 k/uL Final MPV Date Value Ref Range Status 04/05/2023 9.7 9.0 - 12.7 fL Final Abs Neut Date Value Ref Range Status 04/05/2023 8.60 (H) 1.45 - 7.50 k/uL Final Lymphocytes % Date Value Ref Range Status 04/05/2023 15.5 % Final Abs Lymph Date Value Ref Range Status 04/05/2023 1.63 1.00 - 4.00 k/uL Final Monocytes % Date Value Ref Range Status 04/05/2023 2.0 % Final Abs [place] Date Value Ref Range Status 04/05/2023 0.21 <0.87 k/uL Final Eosinophils % Date Value Ref Range Status 04/05/2023 0.2 % Final Abs Eosin Date Value Ref Range Status 04/05/2023 <0.03 <0.46 k/uL Final Basophils % Date Value Ref Range Status 04/05/2023 0.5 % Final Abs Baso Date Value Ref Range Status 04/05/2023 0.05 <0.11 k/uL Final PATH: Whipple on November: SYNOPTIC REPORT OF MANJARREZ PATHOLOGIC FINDINGS WHIPPLE, GALLBLADER, OMENTUM: PANCREAS EXOCRINE WORKSHEET Specimen: Head of pancreas Body of pancreas Duodenum Stomach Common bile duct Gallbladder Procedure: Pancreaticoduodenectomy (Whipple resection), partial pancreatectomy Tumor Site: Pancreatic head Histologic Type: Ductal adenocarcinoma (NOS) Histologic Grade: G2: Moderately differentiated Tumor Size: Greatest dimension: 8.1 cm Microscopic Tumor Extension: Tumor invades duodenal wall Tumor invades peripancreatic soft tissues Tumor invades posterior surface of pancreas Tissue Specimen Type: Pancreaticoduodenal Resection Specimen Margins for Pancreaticoduodenal Resection Specimen: Pancreatic neck/parenchymal margin uninvolved by pancreatic high-grade intraepithelial neoplasia or invasive carcinoma Uncinate (retroperitoneal/superior mesentric artery) margin cannot be assessed Bile duct margin uninvolved by high-grade intraepithelial neoplasia or invasive carcinoma Proximal margin (Gastric or Duodenal) uninvolved by high-grade dysplasia or invasive carcinoma Distal margin (Duodenal or Jejunal) uninvolved by high-grade dysplasia or invasive carcinoma Treatment Effect: No known presurgical therapy Lymphovascular Invasion: Present Perineural Invasion: Present Pathologic Stage Classification (pTNM, AJCC 8th ed) TNM Descriptors: Not applicable Primary Tumor (pT): pT3: Tumor >4 cm in greatest dimension Regional lymph nodes (pN): pN2: Metastasis in four or more regional lymph nodes Number of lymph nodes involved: 7 Number of lymph nodes examined: 27 Distant Metastasis (pM): Not applicable/Not confirmed pathologically in this case Comment: Gallbladder with chronic cholecystitis and cholesterolosis. 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 Large fluid collection in the anterior abdominal wall which visualizes to the skin surface. This collection may arise near the pancreaticojejunostomy. 2. No definite findings to suggest metastatic disease in the abdomen or pelvis. 3. Calcifications within the urinary bladder, nonspecific. A urothelial lesion is not excluded. Consider urologic consultation. CT Pancreas 01/2022: 1. Since 03/15/2021, marked increase in central mesenteric and retroperitoneal lymphadenopathy, suspicious for disease progression. 2. 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 3. Unchanged ill-defined soft tissue surrounding the origin of the celiac artery and common hepatic artery, suspicious for recurrent neoplasm. 4. Status post Whipple procedure. A pancreatic duct stent remains in place. No new pancreatic ductal dilatation. 5. Unchanged heterogeneous attenuation of the pelvic marrow, nonspecific but favored to be secondary to marrow reconversion. Continued attention on subsequent studies is suggested. If warranted, consider further assessment with nuclear medicine bone scan. CT of the chest and Abd and Pelvis 05/2022: 1. Stable CT of the chest. Unchanged appearance of left lower lobe 4 mm nodule. No new or enlarging nodules are visualized. 2. Stable appearance of prominent lymph node in the anterior mediastinum. No new bulky intrathoracic adenopathy is seen. 3. Stable findings of prior granulomatous disease 1. Mesenteric and retroperitoneal lymphadenopathy as noted above. The majority of the visualized lymph nodes appear stable, however there is slight interval increase in size of an aortocaval node. Recommend continued follow-up. 2. Stable ill-defined soft tissue density/fat stranding in the origin of the celiac artery which may be on the basis of postsurgical change versus recurrent neoplasm. 3. Stable postsurgical changes in keeping with prior Whipple procedure. No pancreatic ductal dilation or recurrent mass is seen. 4. Previously described ill-defined soft tissue in the ellen hepatis is not well seen on the current study. CT Scan of the Chest and Abdomen and Pelvis 06/2022: 1. New reticulonodular opacities in the right lung, with an upper lung field predominance, most likely infectious/inflammatory in etiology. Consider follow-up to complete resolution. 2. Other subcentimeter nodular opacities measuring up to 7-8 mm, stable since 05/25/22 1. No interval change since 05/25/22. 2. Multiple mesenteric and peritoneal masses/lymphadenopathy, stable CT Scan of the Chest and Abdomen and Pelvis 10/2022: 1. Since 07/27/2022, decrease in right upper lobe tree-in-bud opacities, compatible with resolving infection/inflammation. 2. Additional nonspecific noncalcified pulmonary nodules measuring up to 0.7 cm are unchanged. 3. Unchanged 0.9 cm retrosternal nodule/lymph node. No progressive lymphadenopathy. 1. Since 07/27/2022, unchanged diffuse retroperitoneal and central mesenteric lymphadenopathy. Unchanged metastatic deposit along the anterior right kidney. 2. New geographic regions of hypodensity along the inferior margin of the left hepatic lobe, likely evolving sites of steatosis. Attention on subsequent studies is suggested. Assessment and Plan: Uriel Anderson is a 72 year old year old male here for follow up and continued treatment. T3, N2, M0, pancreatic adenocarcinoma. Patient with postoperative complications which precluded adjuvant chemo and did have additional admissions and procedures lastly a stent in the PJ stenosis in 04/2021. His CT, 01/2022 with sandy progression and he has recurrence. His initial disease state was very high risk. Post 4 cycles of therapy and with stable disease on CT 05/2022. Discussed the results and he wanted some time off chemo. Reviewed follow up imaging 10/2022 and still stable but he is more symptomatic and rising CA 19-9 and elected to restart [place] and Abraxane 11/23/2022. However, he had a very poor tolerance of therapy and has had declined QOL. Therapy was held at that time 12/14/2022. CA 199 began to rise and options of no therapy, repeat chemo with dose modifications and/or Xeloda. He wanted to restart [place] and Abraxane, which he was on 02/01/2023 and dose reduced and have a 2 week on and 2 week off schedule. He still has fatigue from chemotherapy, otherwise is tolerating it well. Proceed with cycle 3 day 8 today. Monitor ca199. Likely image after cycle 4. Continue nutrition follow up. Monitor CBC. DM- Follow endocrine. 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 Follow up on 04/26/2023 for cycle 4 day 1. Overall there is concern in regards to how long he can tolerate chemotherapy and will monitor closely. Yordy Moncada APRN.EDUCATION LIAISON CC: Giovanni Hamlin MD I spent a total of 30 minutes on the date of the service which included preparing to see the patient, [id number] patient care, completing clinical documentation, obtaining and/or reviewing separately obtained history, performing a medically appropriate examination, counseling and educating the patient/family/caregiver, ordering medications, tests, or procedures, independently interpreting results (not separately reported), and communicating results to the patient/family/caregiver. documented in this encounter [facility] 04-04-2023 Miscellaneous Notes Pt notified of results. Josephine Salomon RN Please call with [id number] results documented in this encounter [facility] 03-30-[address] [facility] 03-30-2023 History of Present illness Narrative PATIENT NAME: Uriel Anderson [facility] NO[facility] [id number] ATTENDING PHYSICIAN: Grace Bess MD DATE OF SERVICE: March 30, 2023 (Elements copied from Dr. Bess's note dated March 08, 2023, have been reviewed and updated where appropriate, and all reflect current assessment and medical decision making during today's encounter, March 30, 2023) CC: Follow up and treatment Diagnosis: 1. T3, N2, M0 pancreatic cancer. Tumor is 8.1 cm, moderately differentiated adenocarcinoma, tumor invades duodenal wall, peripancreatic soft tissue. Margins were negative. Lymphovascular space invasion was present, perineural invasion was present. Metastatic disease in 7 of 27 lymph nodes. 2. NGS Tissue Based: KRAS [id number], EGFR amplified and RAC 1 Amplified , GIBRAN and TMB low, Liquid Based 03/2022: KRAS, APC and RON mutation as well. Treatment History: Germline Testing: Negative 1. Diagnostic laparoscopy, pancreaticoduodenectomy, hepaticojejunostomy, pancreatico jejunostomy and gastrojejunostomy on December 04, 2019. Operative findings very bulky pancreatic head mass with significant adenopathy. Large SMA lymph node which appeared to be right at the onset of margin and was completed dissected off the SMA. 2. Post op complication and did not receive adjuvant chemo 3. 04/2021: Successful sphincterotomy and dilation of pancreaticojejunostomy stricture and placement of an 8mm covered stent 4. CT 01/2022- recurrence 5. [place] and Abraxane 03/16/2022-05/11/2022 ( elected to stop chemo) 6. Resumed [place] and Abraxane 11/23/2022- 12/14/2022- Stopped due to poor tolerance 7. Restarted [place] and Abraxane dose reduced, 2 week on and 2 weeks off 02/01/2023 HPI: Alfred returns for follow up and cycle 2 of treatment. He is still very tired. He feels chemo just wears him out. His neuropathy is about the same. He just started the gabapentin Monday . He is eating well and has a good appetite. Chemotherapy lindsey snot cause him nausea, vomiting or bowel issues. PAST MEDICAL HISTORY Diagnosis Date Acute bilateral deep vein thrombosis (DVT) of upper extremities (HCC) Adenocarcinoma of head of pancreas (HCC) Gastric outlet obstruction Obstructive sleep apnea Social History Tobacco Use Smoking status: Former Packs/day: 1.00 Years: 35.00 Additional pack years: 0.00 Total pack years: 35.00 Types: Cigarettes Quit date: 2018 Years since quittin.8 Passive exposure: Past Smokeless tobacco: Never Vaping Use Vaping Use: Never used Substance Use Topics Alcohol use: Not Currently Drug use: Never FAMILY HISTORY Problem Relation Age of Onset Anesthesia Problems No Family History Past medical, social and family history reviewed without any changes. REVIEW OF SYSTEMS GENERAL: No weight loss, malaise or fevers. No night sweats. +fatigue HEENT: Negative for headaches, No changes in hearing or vision, no nose bleeds or other nasal problems. RESPIRATORY: Negative for cough, wheezing and shortness of breath CARDIOVASCULAR: Negative for chest pain, leg swelling and palpitations GI: Negative for abdominal discomfort, blood in stools or black stools and change in bowel habits : Negative for dysuria, frequency and incontinence MUSCULOSKELETAL: Negative for joint pain or swelling, back pain, and muscle pain. SKIN: Negative for lesions, rash, and itching. HEMATOLOGY/LYMPHOLOGY Negative for prolonged bleeding, bruising easily, and swollen nodes. NEURO: Negative for numbness or tingling of hands/feet. No weakness. PHYSICAL EXAMINATION: BP 116/67[recheck[ Pulse 90 Temp (Src) 97.6 (Temporal) Resp 16 Ht 5' 7.48 (1.71m) Wt 170 lb 3.2 oz (77.2kg) SpO2 99% BMI 26.28 kg/(m^2). ECOG PERFORMANCE STATUS: 1- Restricted in physically strenuous activity. Carries out light duty. General: Alert and oriented, no distress, pleasant and cooperative. Heart: Regular, normal S1 and S2, no murmurs, rubs, or gallops Lungs: Clear to auscultation bilaterally Abdomen: Benign Extremities: Feet/ankles without edema, posterior tibial pulses full and symmetrical LABS: Glucose (mg/dL) Date Value 03/30/2023 137 02/11/2021 104 Potassium (mmol/L) Date Value 03/30/2023 4.6 02/11/2021 4.0 Sodium (mmol/L) Date Value 03/30/2023 137 02/11/2021 139 Chloride (mmol/L) Date Value 03/30/2023 104 02/11/2021 105 CO2 (mmol/L) Date Value 03/30/2023 26 02/11/2021 25 Creatinine (mg/dL) Date Value 03/30/2023 0.78 02/11/2021 0.49 BUN (mg/dL) Date Value 03/30/2023 20 02/11/2021 6 Anion Gap (mmol/L) Date Value 03/30/2023 7 02/11/2021 9 Calcium (mg/dL) Date Value 02/11/2021 9.5 Calcium, Total (mg/dL) Date Value 03/30/2023 10.5 Protein, Total (g/dL) Date Value 03/30/2023 7.0 02/11/2021 5.5 Albumin (g/dL) Date Value 03/30/2023 4.2 02/11/2021 2.5 Bilirubin, Total (mg/dL) Date Value 03/30/2023 1.0 02/11/2021 0.5 Alkaline Phosphatase (U/L) Date Value 03/30/2023 124 02/11/2021 84 AST (U/L) Date Value 03/30/2023 20 02/11/2021 10 ALT (U/L) Date Value 03/30/2023 20 02/11/2021 9 WBC Date Value Ref Range Status 03/30/2023 7.88 3.70 - 11.00 k/uL Final RBC Date Value Ref Range Status 03/30/2023 3.56 (L) 4.20 - 6.00 m/uL Final Hemoglobin Date Value Ref Range Status 03/30/2023 11.2 (L) 13.0 - 17.0 g/dL Final Hematocrit Date Value Ref Range Status 03/30/2023 35.6 (L) 39.0 - 51.0 % Final MCV Date Value Ref Range Status 03/30/2023 100.0 80.0 - 100.0 fL Final MCH Date Value Ref Range Status 03/30/2023 31.5 26.0 - 34.0 pg Final MCHC Date Value Ref Range Status 03/30/2023 31.5 30.5 - 36.0 g/dL Final RDW-CV Date Value Ref Range Status 03/30/2023 16.0 (H) 11.5 - 15.0 % Final Platelet Count Date Value Ref Range Status 03/30/2023 479 (H) 150 - 400 k/uL Final MPV Date Value Ref Range Status 03/30/2023 9.5 9.0 - 12.7 fL Final Abs Neut Date Value Ref Range Status 03/30/2023 5.24 1.45 - 7.50 k/uL Final Lymphocytes % Date Value Ref Range Status 03/30/2023 21.3 % Final Abs Lymph Date Value Ref Range Status 03/30/2023 1.68 1.00 - 4.00 k/uL Final Monocytes % Date Value Ref Range Status 03/30/2023 10.4 % Final Abs [place] Date Value Ref Range Status 03/30/2023 0.82 <0.87 k/uL Final Eosinophils % Date Value Ref Range Status 03/30/2023 0.4 % Final Abs Eosin Date Value Ref Range Status 03/30/2023 0.03 <0.46 k/uL Final Basophils % Date Value Ref Range Status 03/30/2023 0.5 % Final Abs Baso Date Value Ref Range Status 03/30/2023 0.04 <0.11 k/uL Final PATH: Whipple on November: SYNOPTIC REPORT OF MANJARREZ PATHOLOGIC FINDINGS WHIPPLE, GALLBLADER, OMENTUM: PANCREAS EXOCRINE WORKSHEET Specimen: Head of pancreas Body of pancreas Duodenum Stomach Common bile duct Gallbladder Procedure: Pancreaticoduodenectomy (Whipple resection), partial pancreatectomy Tumor Site: Pancreatic head Histologic Type: Ductal adenocarcinoma (NOS) Histologic Grade: G2: Moderately differentiated Tumor Size: Greatest dimension: 8.1 cm Microscopic Tumor Extension: Tumor invades duodenal wall Tumor invades peripancreatic soft tissues Tumor invades posterior surface of pancreas Tissue Specimen Type: Pancreaticoduodenal Resection Specimen Margins for Pancreaticoduodenal Resection Specimen: Pancreatic neck/parenchymal margin uninvolved by pancreatic high-grade intraepithelial neoplasia or invasive carcinoma Uncinate (retroperitoneal/superior mesentric artery) margin cannot be assessed Bile duct margin uninvolved by high-grade intraepithelial neoplasia or invasive carcinoma Proximal margin (Gastric or Duodenal) uninvolved by high-grade dysplasia or invasive carcinoma Distal margin (Duodenal or Jejunal) uninvolved by high-grade dysplasia or invasive carcinoma Treatment Effect: No known presurgical therapy Lymphovascular Invasion: Present Perineural Invasion: Present Pathologic Stage Classification (pTNM, AJCC 8th ed) TNM Descriptors: Not applicable Primary Tumor (pT): pT3: Tumor >4 cm in greatest dimension Regional lymph nodes (pN): pN2: Metastasis in four or more regional lymph nodes Number of lymph nodes involved: 7 Number of lymph nodes examined: 27 Distant Metastasis (pM): Not applicable/Not confirmed pathologically in this case Comment: Gallbladder with chronic cholecystitis and cholesterolosis. 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 Large fluid collection in the anterior abdominal wall which visualizes to the skin surface. This collection may arise near the pancreaticojejunostomy. 2. No definite findings to suggest metastatic disease in the abdomen or pelvis. 3. Calcifications within the urinary bladder, nonspecific. A urothelial lesion is not excluded. Consider urologic consultation. CT Pancreas 01/2022: 1. Since 03/15/2021, marked increase in central mesenteric and retroperitoneal lymphadenopathy, suspicious for disease progression. 2. 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 3. Unchanged ill-defined soft tissue surrounding the origin of the celiac artery and common hepatic artery, suspicious for recurrent neoplasm. 4. Status post Whipple procedure. A pancreatic duct stent remains in place. No new pancreatic ductal dilatation. 5. Unchanged heterogeneous attenuation of the pelvic marrow, nonspecific but favored to be secondary to marrow reconversion. Continued attention on subsequent studies is suggested. If warranted, consider further assessment with nuclear medicine bone scan. CT of the chest and Abd and Pelvis 05/2022: 1. Stable CT of the chest. Unchanged appearance of left lower lobe 4 mm nodule. No new or enlarging nodules are visualized. 2. Stable appearance of prominent lymph node in the anterior mediastinum. No new bulky intrathoracic adenopathy is seen. 3. Stable findings of prior granulomatous disease 1. Mesenteric and retroperitoneal lymphadenopathy as noted above. The majority of the visualized lymph nodes appear stable, however there is slight interval increase in size of an aortocaval node. Recommend continued follow-up. 2. Stable ill-defined soft tissue density/fat stranding in the origin of the celiac artery which may be on the basis of postsurgical change versus recurrent neoplasm. 3. Stable postsurgical changes in keeping with prior Whipple procedure. No pancreatic ductal dilation or recurrent mass is seen. 4. Previously described ill-defined soft tissue in the ellen hepatis is not well seen on the current study. CT Scan of the Chest and Abdomen and Pelvis 06/2022: 1. New reticulonodular opacities in the right lung, with an upper lung field predominance, most likely infectious/inflammatory in etiology. Consider follow-up to complete resolution. 2. Other subcentimeter nodular opacities measuring up to 7-8 mm, stable since 05/25/22 1. No interval change since 05/25/22. 2. Multiple mesenteric and peritoneal masses/lymphadenopathy, stable CT Scan of the Chest and Abdomen and Pelvis 10/2022: 1. Since 07/27/2022, decrease in right upper lobe tree-in-bud opacities, compatible with resolving infection/inflammation. 2. Additional nonspecific noncalcified pulmonary nodules measuring up to 0.7 cm are unchanged. 3. Unchanged 0.9 cm retrosternal nodule/lymph node. No progressive lymphadenopathy. 1. Since 07/27/2022, unchanged diffuse retroperitoneal and central mesenteric lymphadenopathy. Unchanged metastatic deposit along the anterior right kidney. 2. New geographic regions of hypodensity along the inferior margin of the left hepatic lobe, likely evolving sites of steatosis. Attention on subsequent studies is suggested. Assessment and Plan: Uriel Anderson is a 72 year old year old male here for follow up. T3, N2, M0, pancreatic adenocarcinoma. Patient with postoperative complications which precluded adjuvant chemo and did have additional admissions and procedures lastly a stent in the PJ stenosis in 04/2021. His CT, 01/2022 with sandy progression and he has recurrence. His initial disease state was very high risk. Post 4 cycles of therapy and with stable disease on CT 05/2022. Discussed the results and he wanted some time off chemo. Reviewed follow up imaging 10/2022 and still stable but he is more symptomatic and rising CA 19-9 and elected to restart [place] and Abraxane 11/23/2022. However, he had a very poor tolerance of therapy and has had declined QOL. Therapy was held at that time 12/14/2022 CA 199 began to rise and options of no therapy, repeat chemo with dose modifications and/or Xeloda. He wanted to restart [place] and Abraxane, which he was on 02/01/2023 and dose reduced and have a 2 week on and 2 week off schedule. He still has fatigue from chemotherapy, otherwise is tolerating it well. Proceed with cycle 3 day 1 today. Monitor ca199. Likely image after cycle 4. Continue nutrition follow up Monitor CBC DM- Follow endocrine Grade 1 neuropathy -on gabapentin Return in 1 week for day 8. Overall there is concern in regards to how long he can tolerate chemo and will monitor closely Greta Wetzel PA-C CC: Giovanni Hamlin MD documented in this encounter [facility] 03-08-[address] [facility] 03-08-2023 History of Present illness Narrative PATIENT NAME: Uriel Anderson [facility] NO.: [id number] ATTENDING PHYSICIAN: Grace Bess MD DATE OF SERVICE: March 08, 2023 Some of the elements of this note have been copied from my previous progress note dated 03/01/2023. All the information has been reviewed carefully. Dear Dr. Hamlin here is an update on a follow up visit on male Uriel Anderson at the clinic March 08, 2023 Diagnosis: 1. T3, N2, M0 pancreatic cancer. Tumor is 8.1 cm, moderately differentiated adenocarcinoma, tumor invades duodenal wall, peripancreatic soft tissue. Margins were negative. Lymphovascular space invasion was present, perineural invasion was present. Metastatic disease in 7 of 27 lymph nodes. 2. NGS Tissue Based: KRAS [id number], EGFR amplified and RAC 1 Amplified , GIBRAN and TMB low, Liquid Based 03/2022: KRAS, APC and RON mutation as well. Treatment History: Germline Testing: Negative 1. Diagnostic laparoscopy, pancreaticoduodenectomy, hepaticojejunostomy, pancreatico jejunostomy and gastrojejunostomy on December 04, 2019. Operative findings very bulky pancreatic head mass with significant adenopathy. Large SMA lymph node which appeared to be right at the onset of margin and was completed dissected off the SMA. 2. Post op complication and did not receive adjuvant chemo 3. 04/2021: Successful sphincterotomy and dilation of pancreaticojejunostomy stricture and placement of an 8mm covered stent 4. CT 01/2022- recurrence 5. [place] and Abraxane 03/16/2022-05/11/2022 ( elected to stop chemo) 6. Resumed [place] and Abraxane 11/23/2022- 12/14/2022- Stopped due to poor tolerance 7. Restarted [place] and Abraxane dose reduced, 2 week on and 2 weeks off 02/01/2023 HPI: Uriel Anderson is a 72 year old year old male here for follow up. Feels better today and also feels that he is eating better. He states that his neuropathy has not changed much at all. PAST MEDICAL HISTORY Diagnosis Date Acute bilateral deep vein thrombosis (DVT) of upper extremities (HCC) Adenocarcinoma of head of pancreas (HCC) Gastric outlet obstruction Obstructive sleep apnea Social History Tobacco Use Smoking status: Former Packs/day: 1.00 Years: 35.00 Additional pack years: 0.00 Total pack years: 35.00 Types: Cigarettes Quit date: 2018 Years since quittin.7 Passive exposure: Past Smokeless tobacco: Never Vaping Use Vaping Use: Never used Substance Use Topics Alcohol use: Not Currently Drug use: Never FAMILY HISTORY Problem Relation Age of Onset Anesthesia Problems No Family History Past medical, social and family history reviewed without any changes. REVIEW OF SYSTEMS GENERAL: No weight loss, malaise or fevers. No night sweats. HEENT: Negative for headaches, No changes in hearing or vision, no nose bleeds or other nasal problems. RESPIRATORY: Negative for cough, wheezing and shortness of breath CARDIOVASCULAR: Negative for chest pain, leg swelling and palpitations GI: Negative for abdominal discomfort, blood in stools or black stools and change in bowel habits : Negative for dysuria, frequency and incontinence MUSCULOSKELETAL: Negative for joint pain or swelling, back pain, and muscle pain. SKIN: Negative for lesions, rash, and itching. HEMATOLOGY/LYMPHOLOGY Negative for prolonged bleeding, bruising easily, and swollen nodes. NEURO: Negative for numbness or tingling of hands/feet. No weakness. PHYSICAL EXAMINATION: BP 104/71 Pulse 90 Temp (Src) 97.6 (Temporal) Resp 16 Ht 5' 7.48 (1.71m) Wt 172 lb (78.0kg) SpO2 100% BMI 26.56 kg/(m^2). Wt 79.4 kg (175 lb) BMI 26.61 kg/m2 Last 3 Encounter Wt Readings: Date: Wt: 03/06/2020 79.4 kg (175 lb) 02/14/2020 84.9 kg (187 lb 2.7 oz) 02/14/2020 82.2 kg (181 lb 3.2 oz) General appearance:ECOG PERFORMANCE STATUS: 1- Restricted in physically strenuous activity. Carries out light duty. Patient in NAD. Skin: Skin color, texture, turgor normal. No rashes or lesions. Eyes: Anicteric sclera. Pupils are equally round and reactive to light. Extraocular movements are intact. Lymph Nodes: No cervical, supraclavicular, axillary or inguinal adenopathy. Oropharynx: Lips, mucosa, and tongue normal. Back: No pain to percussion. Negative SLR test Lungs clear to auscultation, No wheezing or rhonchi Heart: RRR without murmur, gallop, or rubs. Abdomen: Abdomen is soft but there is purulent drainage from around the pigtail catheter as well as the laparoscopic ports. Minimal tenderness. No rebound or guarding. Extremities: No deformities. No edema Neuro: Gait and speech normal. Reflexes normal and symmetric. Muscular strength intact. Sensation grossly intact. Rectal: Deferred : Deferred LABS: Glucose (mg/dL) Date Value 03/01/2023 149 02/11/2021 104 Potassium (mmol/L) Date Value 03/01/2023 4.5 02/11/2021 4.0 Sodium (mmol/L) Date Value 03/01/2023 136 02/11/2021 139 Chloride (mmol/L) Date Value 03/01/2023 103 02/11/2021 105 CO2 (mmol/L) Date Value 03/01/2023 22 02/11/2021 25 Creatinine (mg/dL) Date Value 03/01/2023 0.91 02/11/2021 0.49 BUN (mg/dL) Date Value 03/01/2023 21 02/11/2021 6 Anion Gap (mmol/L) Date Value 03/01/2023 11 02/11/2021 9 Calcium (mg/dL) Date Value 02/11/2021 9.5 Calcium, Total (mg/dL) Date Value 03/01/2023 10.4 Protein, Total (g/dL) Date Value 03/01/2023 6.8 02/11/2021 5.5 Albumin (g/dL) Date Value 03/01/2023 4.0 02/11/2021 2.5 Bilirubin, Total (mg/dL) Date Value 03/01/2023 1.0 02/11/2021 0.5 Alkaline Phosphatase (U/L) Date Value 03/01/2023 128 02/11/2021 84 AST (U/L) Date Value 03/01/2023 23 02/11/2021 10 ALT (U/L) Date Value 03/01/2023 29 02/11/2021 9 WBC Date Value Ref Range Status 03/01/2023 8.10 3.70 - 11.00 k/uL Final RBC Date Value Ref Range Status 03/01/2023 3.67 (L) 4.20 - 6.00 m/uL Final Hemoglobin Date Value Ref Range Status 03/01/2023 11.9 (L) 13.0 - 17.0 g/dL Final Hematocrit Date Value Ref Range Status 03/01/2023 37.3 (L) 39.0 - 51.0 % Final MCV Date Value Ref Range Status 03/01/2023 101.6 (H) 80.0 - 100.0 fL Final MCH Date Value Ref Range Status 03/01/2023 32.4 26.0 - 34.0 pg Final MCHC Date Value Ref Range Status 03/01/2023 31.9 30.5 - 36.0 g/dL Final RDW-CV Date Value Ref Range Status 03/01/2023 15.6 (H) 11.5 - 15.0 % Final Platelet Count Date Value Ref Range Status 03/01/2023 449 (H) 150 - 400 k/uL Final MPV Date Value Ref Range Status 03/01/2023 9.2 9.0 - 12.7 fL Final Abs Neut Date Value Ref Range Status 03/01/2023 5.58 1.45 - 7.50 k/uL Final Lymphocytes % Date Value Ref Range Status 03/01/2023 17.9 % Final Abs Lymph Date Value Ref Range Status 03/01/2023 1.45 1.00 - 4.00 k/uL Final Monocytes % Date Value Ref Range Status 03/01/2023 11.6 % Final Abs [place] Date Value Ref Range Status 03/01/2023 0.94 (H) <0.87 k/uL Final Eosinophils % Date Value Ref Range Status 03/01/2023 0.2 % Final Abs Eosin Date Value Ref Range Status 03/01/2023 <0.03 <0.46 k/uL Final Basophils % Date Value Ref Range Status 03/01/2023 0.5 % Final Abs Baso Date Value Ref Range Status 03/01/2023 0.04 <0.11 k/uL Final PATH: Whipple on November: SYNOPTIC REPORT OF MANJARREZ PATHOLOGIC FINDINGS WHIPPLE, GALLBLADER, OMENTUM: PANCREAS EXOCRINE WORKSHEET Specimen: Head of pancreas Body of pancreas Duodenum Stomach Common bile duct Gallbladder Procedure: Pancreaticoduodenectomy (Whipple resection), partial pancreatectomy Tumor Site: Pancreatic head Histologic Type: Ductal adenocarcinoma (NOS) Histologic Grade: G2: Moderately differentiated Tumor Size: Greatest dimension: 8.1 cm Microscopic Tumor Extension: Tumor invades duodenal wall Tumor invades peripancreatic soft tissues Tumor invades posterior surface of pancreas Tissue Specimen Type: Pancreaticoduodenal Resection Specimen Margins for Pancreaticoduodenal Resection Specimen: Pancreatic neck/parenchymal margin uninvolved by pancreatic high-grade intraepithelial neoplasia or invasive carcinoma Uncinate (retroperitoneal/superior mesentric artery) margin cannot be assessed Bile duct margin uninvolved by high-grade intraepithelial neoplasia or invasive carcinoma Proximal margin (Gastric or Duodenal) uninvolved by high-grade dysplasia or invasive carcinoma Distal margin (Duodenal or Jejunal) uninvolved by high-grade dysplasia or invasive carcinoma Treatment Effect: No known presurgical therapy Lymphovascular Invasion: Present Perineural Invasion: Present Pathologic Stage Classification (pTNM, AJCC 8th ed) TNM Descriptors: Not applicable Primary Tumor (pT): pT3: Tumor >4 cm in greatest dimension Regional lymph nodes (pN): pN2: Metastasis in four or more regional lymph nodes Number of lymph nodes involved: 7 Number of lymph nodes examined: 27 Distant Metastasis (pM): Not applicable/Not confirmed pathologically in this case Comment: Gallbladder with chronic cholecystitis and cholesterolosis. 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 Large fluid collection in the anterior abdominal wall which visualizes to the skin surface. This collection may arise near the pancreaticojejunostomy. 2. No definite findings to suggest metastatic disease in the abdomen or pelvis. 3. Calcifications within the urinary bladder, nonspecific. A urothelial lesion is not excluded. Consider urologic consultation. CT Pancreas 01/2022: 1. Since 03/15/2021, marked increase in central mesenteric and retroperitoneal lymphadenopathy, suspicious for disease progression. 2. 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 3. Unchanged ill-defined soft tissue surrounding the origin of the celiac artery and common hepatic artery, suspicious for recurrent neoplasm. 4. Status post Whipple procedure. A pancreatic duct stent remains in place. No new pancreatic ductal dilatation. 5. Unchanged heterogeneous attenuation of the pelvic marrow, nonspecific but favored to be secondary to marrow reconversion. Continued attention on subsequent studies is suggested. If warranted, consider further assessment with nuclear medicine bone scan. CT of the chest and Abd and Pelvis 05/2022: 1. Stable CT of the chest. Unchanged appearance of left lower lobe 4 mm nodule. No new or enlarging nodules are visualized. 2. Stable appearance of prominent lymph node in the anterior mediastinum. No new bulky intrathoracic adenopathy is seen. 3. Stable findings of prior granulomatous disease 1. Mesenteric and retroperitoneal lymphadenopathy as noted above. The majority of the visualized lymph nodes appear stable, however there is slight interval increase in size of an aortocaval node. Recommend continued follow-up. 2. Stable ill-defined soft tissue density/fat stranding in the origin of the celiac artery which may be on the basis of postsurgical change versus recurrent neoplasm. 3. Stable postsurgical changes in keeping with prior Whipple procedure. No pancreatic ductal dilation or recurrent mass is seen. 4. Previously described ill-defined soft tissue in the ellen hepatis is not well seen on the current study. CT Scan of the Chest and Abdomen and Pelvis 06/2022: 1. New reticulonodular opacities in the right lung, with an upper lung field predominance, most likely infectious/inflammatory in etiology. Consider follow-up to complete resolution. 2. Other subcentimeter nodular opacities measuring up to 7-8 mm, stable since 05/25/22 1. No interval change since 05/25/22. 2. Multiple mesenteric and peritoneal masses/lymphadenopathy, stable CT Scan of the Chest and Abdomen and Pelvis 10/2022: 1. Since 07/27/2022, decrease in right upper lobe tree-in-bud opacities, compatible with resolving infection/inflammation. 2. Additional nonspecific noncalcified pulmonary nodules measuring up to 0.7 cm are unchanged. 3. Unchanged 0.9 cm retrosternal nodule/lymph node. No progressive lymphadenopathy. 1. Since 07/27/2022, unchanged diffuse retroperitoneal and central mesenteric lymphadenopathy. Unchanged metastatic deposit along the anterior right kidney. 2. New geographic regions of hypodensity along the inferior margin of the left hepatic lobe, likely evolving sites of steatosis. Attention on subsequent studies is suggested. Assessment and Plan: Uriel Anderson is a 72 year old year old male here for follow up. T3, N2, M0, pancreatic adenocarcinoma. Patient with postoperative complications which precluded adjuvant chemo and did have additional admissions and procedures lastly a stent in the PJ stenosis in 04/2021. His CT, 01/2022 with sandy progression and he has recurrence. His initial disease state was very high risk. Post 4 cycles of therapy and with stable disease on CT 05/2022. Discussed the results and he wanted some time off chemo. Reviewed follow up imaging 10/2022 and still stable but he is more symptomatic and rising CA 19-9 and elected to restart [place] and Abraxane 11/23/2022. However, he had a very poor tolerance of therapy and has had declinind QOL. Therapy was held at that time 12/14/2022 Discussed the current status and rising CA 199 and options of no therapy, repeat chemo with dose modifications and or Xeloda. He wants to restart [place] and Abraxane, which he was on 02/01/2023 and dose reduced and have a 2 week on and 2 week off schedule Continue nutrition follow up Monitor CBC DM- Follow endocrine Grade 1 neuropathy See back in 3 weeks for cycle 3 Overall I am concerned in regards to how long he can tolerate chemo and will monitor closely Thank you for the kind referral. If there are any questions and or concerns please do not hesitate to contact me at [phone]. Grace Bess MD Hematology/Medical Oncology [facility] CC: Giovanni Hamlin MD I spent a total of 30 minutes on the date of the service which included preparing to see the patient, [id number] patient care, completing clinical documentation, obtaining and/or reviewing separately obtained history, performing a medically appropriate examination, counseling and educating the patient/family/caregiver, ordering medications, tests, or procedures, and independently interpreting results (not separately reported). documented in this encounter [facility] 03-02-2023 Miscellaneous Notes Pt notified of results and is agreeable to this. Josephine Salomon RN ----- Message from Grace Bess MD sent at 03/02/2023 1:57 PM EDT ----- Tell him that his Tumor marker is stable and if he is ok we will continue the chemo for now documented in this encounter [facility] 03-01-[address] [facility] 02-08-2023 Note HNO ID: [id number] Author: Florinda Rincon RN Service: ? Author Type: Registered Nurse Type: Progress Notes Filed: 02/08/2023 3:45 PM Note Text: Dex discontinued from tx plan per HM due to elevated blood sugars. Florinda Rincon RN [facility] 02-08-[address] [facility] 02-08-2023 History of Present illness Narrative Dex discontinued from tx plan per HM due to elevated blood sugars. Florinda Rincon RN documented in this encounter [facility] 02-08-2023 History of Present illness Narrative PATIENT NAME: Uriel Anderson CLINIC NO.: [id number] ATTENDING PHYSICIAN: Grace Bess MD DATE OF SERVICE: February 08, 2023 Some of the elements of this note have been copied from Dr. Bess's previous progress note dated 02/01/2023. All the information has been reviewed carefully. Dear Dr. Hamlin here is an update on a follow up visit on male Uriel Anderson at the clinic February 08, 2023. Diagnosis: 1. T3, N2, M0 pancreatic cancer. Tumor is 8.1 cm, moderately differentiated adenocarcinoma, tumor invades duodenal wall, peripancreatic soft tissue. Margins were negative. Lymphovascular space invasion was present, perineural invasion was present. Metastatic disease in 7 of 27 lymph nodes. 2. NGS Tissue Based: KRAS [id number], EGFR amplified and RAC 1 Amplified , GIBRAN and TMB low, Liquid Based 03/2022: KRAS, APC and RON mutation as well. Treatment History: Germline Testing: Negative 1. Diagnostic laparoscopy, pancreaticoduodenectomy, hepaticojejunostomy, pancreatico jejunostomy and gastrojejunostomy on December 04, 2019. Operative findings very bulky pancreatic head mass with significant adenopathy. Large SMA lymph node which appeared to be right at the onset of margin and was completed dissected off the SMA. 2. Post op complication and did not receive adjuvant chemo 3. 04/2021: Successful sphincterotomy and dilation of pancreaticojejunostomy stricture and placement of an 8mm covered stent . 4. CT 01/2022- Recurrence. 5. [place] and Abraxane 03/16/2022-05/11/2022. (Elected to stop chemo) 6. Resumed [place] and Abraxane 11/23/2022- 12/14/2022- Stopped due to poor tolerance. 7. Restarted [place] and Abraxane dose reduced, 2 week on and 2 weeks off 02/01/2023. HPI: Uriel Anderson is a 72 year old year old male here for follow up and day 8 gemcitabine. His biggest complaint with treatment is ongoing fatigue. The last couple of weeks his blood sugars have been running high. He follows with endocrinology. He denies fevers and signs/symptoms of infection. He has occasional chills. He has some tingling in his toes. He has been prescribed Neurontin in the past but states that he does not have any at this time. He denies bleeding and abnormal bruising. Despite his complaints he wishes to proceed with treatment today. PAST MEDICAL HISTORY Diagnosis Date Acute bilateral deep vein thrombosis (DVT) of upper extremities (HCC) Adenocarcinoma of head of pancreas (HCC) Gastric outlet obstruction Obstructive sleep apnea Social History Tobacco Use Smoking status: Former Packs/day: 1.00 Years: 35.00 Additional pack years: 0.00 Total pack years: 35.00 Types: Cigarettes Quit date: 2019 Years since quittin.7 Passive exposure: Past Smokeless tobacco: Never Vaping Use Vaping Use: Never used Substance Use Topics Alcohol use: Not Currently Drug use: Never FAMILY HISTORY Problem Relation Age of Onset Anesthesia Problems No Family History Past medical, social and family history reviewed without any changes. REVIEW OF SYSTEMS General: No weight loss, malaise or fevers. No night sweats. Positive fatigue. HEENT: Negative for headaches, No changes in hearing or vision, no nose bleeds or other nasal problems. Respiratory: Negative for cough, wheezing and shortness of breath. Cardiovascular: Negative for chest pain, leg swelling and palpitations. GI: Negative for abdominal discomfort, blood in stools or black stools and change in bowel habits. : Negative for dysuria, frequency and incontinence. Musculoskeletal: Negative for joint pain or swelling, back pain and muscle pain. Skin: Negative for lesions, rash and itching. Hematology/Lymphology: Negative for prolonged bleeding, bruising easily, and swollen nodes. Neuro: See HPI. PHYSICAL EXAMINATION: BP 117/63 Pulse 86 Temp (Src) 97.5 (Temporal) Resp 16 Ht 5' 7.48 (1.71m) Wt 178 lb 12.8 oz (81.1kg) SpO2 100% BMI 27.61 kg/(m^2). General appearance:ECOG PERFORMANCE STATUS: 1- Restricted in physically strenuous activity. Carries out light duty. Exam limited to gross visualization where appropriate. Gen.: This is an age-appropriate patient in no acute distress. Head: Appears atraumatic with no visible lesions. Eyes: Pupils equally round and reactive to light, extraocular muscles are intact. Neck: Supple. Respiratory: Appears to be respiring comfortably. Neurologic: Nonfocal to gross visualization. Alert and oriented 3. Psychiatric: No evidence of inappropriate anxiety or depression. Skin: Visible areas of skin without rash, lesions, wounds or petechiae. LABS: Hemoglobin (g/dL) Date Value 02/08/2023 9.6 02/11/2021 9.1 Hematocrit (%) Date Value 02/08/2023 28.4 02/11/2021 28.1 WBC (k/uL) Date Value 02/08/2023 5.06 02/11/2021 8.84 Platelet Count (k/uL) Date Value 02/08/2023 182 02/11/2021 264 WBC Date Value Ref Range Status 02/08/2023 5.06 3.70 - 11.00 k/uL Final RBC Date Value Ref Range Status 02/08/2023 2.92 (L) 4.20 - 6.00 m/uL Final Hemoglobin Date Value Ref Range Status 02/08/2023 9.6 (L) 13.0 - 17.0 g/dL Final Hematocrit Date Value Ref Range Status 02/08/2023 28.4 (L) 39.0 - 51.0 % Final MCV Date Value Ref Range Status 02/08/2023 97.3 80.0 - 100.0 fL Final MCH Date Value Ref Range Status 02/08/2023 32.9 26.0 - 34.0 pg Final MCHC Date Value Ref Range Status 02/08/2023 33.8 30.5 - 36.0 g/dL Final RDW-CV Date Value Ref Range Status 02/08/2023 14.3 11.5 - 15.0 % Final Platelet Count Date Value Ref Range Status 02/08/2023 182 150 - 400 k/uL Final MPV Date Value Ref Range Status 02/08/2023 9.9 9.0 - 12.7 fL Final Abs Neut Date Value Ref Range Status 02/08/2023 3.36 1.45 - 7.50 k/uL Final Lymphocytes % Date Value Ref Range Status 02/08/2023 28.1 % Final Abs Lymph Date Value Ref Range Status 02/08/2023 1.42 1.00 - 4.00 k/uL Final Monocytes % Date Value Ref Range Status 02/08/2023 4.3 % Final Abs [place] Date Value Ref Range Status 02/08/2023 0.22 <0.87 k/uL Final Eosinophils % Date Value Ref Range Status 02/08/2023 0.2 % Final Abs Eosin Date Value Ref Range Status 02/08/2023 <0.03 <0.46 k/uL Final Basophils % Date Value Ref Range Status 02/08/2023 0.4 % Final Abs Baso Date Value Ref Range Status 02/08/2023 <0.03 <0.11 k/uL Final PATH: Whipple on November: SYNOPTIC REPORT OF MANJARREZ PATHOLOGIC FINDINGS TASHA MARTEL, OMENTUM: PANCREAS EXOCRINE WORKSHEET Specimen: Head of pancreas Body of pancreas Duodenum Stomach Common bile duct Gallbladder Procedure: Pancreaticoduodenectomy (Whipple resection), partial pancreatectomy Tumor Site: Pancreatic head Histologic Type: Ductal adenocarcinoma (NOS) Histologic Grade: G2: Moderately differentiated Tumor Size: Greatest dimension: 8.1 cm Microscopic Tumor Extension: Tumor invades duodenal wall Tumor invades peripancreatic soft tissues Tumor invades posterior surface of pancreas Tissue Specimen Type: Pancreaticoduodenal Resection Specimen Margins for Pancreaticoduodenal Resection Specimen: Pancreatic neck/parenchymal margin uninvolved by pancreatic high-grade intraepithelial neoplasia or invasive carcinoma Uncinate (retroperitoneal/superior mesentric artery) margin cannot be assessed Bile duct margin uninvolved by high-grade intraepithelial neoplasia or invasive carcinoma Proximal margin (Gastric or Duodenal) uninvolved by high-grade dysplasia or invasive carcinoma Distal margin (Duodenal or Jejunal) uninvolved by high-grade dysplasia or invasive carcinoma Treatment Effect: No known presurgical therapy Lymphovascular Invasion: Present Perineural Invasion: Present Pathologic Stage Classification (pTNM, AJCC 8th ed) TNM Descriptors: Not applicable Primary Tumor (pT): pT3: Tumor >4 cm in greatest dimension Regional lymph nodes (pN): pN2: Metastasis in four or more regional lymph nodes Number of lymph nodes involved: 7 Number of lymph nodes examined: 27 Distant Metastasis (pM): Not applicable/Not confirmed pathologically in this case Comment: Gallbladder with chronic cholecystitis and cholesterolosis. 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 Large fluid collection in the anterior abdominal wall which visualizes to the skin surface. This collection may arise near the pancreaticojejunostomy. 2. No definite findings to suggest metastatic disease in the abdomen or pelvis. 3. Calcifications within the urinary bladder, nonspecific. A urothelial lesion is not excluded. Consider urologic consultation. CT Pancreas 01/2022: 1. Since 03/15/2021, marked increase in central mesenteric and retroperitoneal lymphadenopathy, suspicious for disease progression. 2. 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 3. Unchanged ill-defined soft tissue surrounding the origin of the celiac artery and common hepatic artery, suspicious for recurrent neoplasm. 4. Status post Whipple procedure. A pancreatic duct stent remains in place. No new pancreatic ductal dilatation. 5. Unchanged heterogeneous attenuation of the pelvic marrow, nonspecific but favored to be secondary to marrow reconversion. Continued attention on subsequent studies is suggested. If warranted, consider further assessment with nuclear medicine bone scan. CT of the chest and Abd and Pelvis 05/2022: 1. Stable CT of the chest. Unchanged appearance of left lower lobe 4 mm nodule. No new or enlarging nodules are visualized. 2. Stable appearance of prominent lymph node in the anterior mediastinum. No new bulky intrathoracic adenopathy is seen. 3. Stable findings of prior granulomatous disease 1. Mesenteric and retroperitoneal lymphadenopathy as noted above. The majority of the visualized lymph nodes appear stable, however there is slight interval increase in size of an aortocaval node. Recommend continued follow-up. 2. Stable ill-defined soft tissue density/fat stranding in the origin of the celiac artery which may be on the basis of postsurgical change versus recurrent neoplasm. 3. Stable postsurgical changes in keeping with prior Whipple procedure. No pancreatic ductal dilation or recurrent mass is seen. 4. Previously described ill-defined soft tissue in the ellen hepatis is not well seen on the current study. CT Scan of the Chest and Abdomen and Pelvis 06/2022: 1. New reticulonodular opacities in the right lung, with an upper lung field predominance, most likely infectious/inflammatory in etiology. Consider follow-up to complete resolution. 2. Other subcentimeter nodular opacities measuring up to 7-8 mm, stable since 05/25/22 1. No interval change since 05/25/22. 2. Multiple mesenteric and peritoneal masses/lymphadenopathy, stable CT Scan of the Chest and Abdomen and Pelvis 10/2022: 1. Since 07/27/2022, decrease in right upper lobe tree-in-bud opacities, compatible with resolving infection/inflammation. 2. Additional nonspecific noncalcified pulmonary nodules measuring up to 0.7 cm are unchanged. 3. Unchanged 0.9 cm retrosternal nodule/lymph node. No progressive lymphadenopathy. 1. Since 07/27/2022, unchanged diffuse retroperitoneal and central mesenteric lymphadenopathy. Unchanged metastatic deposit along the anterior right kidney. 2. New geographic regions of hypodensity along the inferior margin of the left hepatic lobe, likely evolving sites of steatosis. Attention on subsequent studies is suggested. Assessment and Plan: Uriel Anderson is a 72 year old year old male here for follow up and continued treatment. T3, N2, M0, pancreatic adenocarcinoma. Patient with postoperative complications which precluded adjuvant chemo and did have additional admissions and procedures lastly a stent in the PJ stenosis in 04/2021. His CT, 01/2022 with sandy progression and he has recurrence. His initial disease state was very high risk. Post 4 cycles of therapy and with stable disease on CT 05/2022. Discussed the results and he wanted some time off chemo. Reviewed follow up imaging 10/2022 and still stable but he is more symptomatic and rising CA 19-9 and elected to restart [place] and Abraxane 11/23/2022. However, he had a very poor tolerance of therapy and has had declinind QOL. Therapy was held at that time 12/14/2022. Restarted [place] and Abraxane 02/01/2023. Will continue with dose reduction and have a 2 week on and 2 week off schedule. Will proceed with day 8 today. Continue nutrition follow up. Anemia- Improved off chemo. DM- Follow endocrine. Will discontinue IV steroids with treatment. We will see him back in 3 weeks for follow-up and continued treatment. Thank you for the kind referral. If there are any questions and or concerns please do not hesitate to contact Grace Bess MD at [phone]. Yordy Moncada APRN.ROBERT Hematology/Medical Oncology [facility] CC: Giovanni Hamlin MD I spent a total of 30 minutes on the date of the service which included preparing to see the patient, [id number] patient care, completing clinical documentation, obtaining and/or reviewing separately obtained history, performing a medically appropriate examination, counseling and educating the patient/family/caregiver, ordering medications, tests, or procedures, independently interpreting results (not separately reported), and communicating results to the patient/family/caregiver. documented in this encounter [facility] 02-01-[address] [facility] 02-01-2023 Miscellaneous Notes He likely has neuropathy and will need to monitor oin the new treatment as well. Doses have been reduced During assessment in tx room, pt states he keeps forgetting to mention to that he has burning between his ankles and knees in bilateral legs. States his toes feel like they are numb as well. He reports this has been going on for a few months. No swelling or redness noted on legs. Please advise. Elisha Reece RN documented in this encounter [facility] 02-01-2023 History of Present illness Narrative PATIENT NAME: Uriel Anderson CLINIC NO.: [id number] ATTENDING PHYSICIAN: Grace Bess MD DATE OF SERVICE: February 01, 2023 Some of the elements of this note have been copied from my previous progress note dated 02/01/2023. All the information has been reviewed carefully. Dear Dr. Hamlin here is an update on a follow up visit on male Uriel Anderson at the clinic February 01, 2023 Diagnosis: 1. T3, N2, M0 pancreatic cancer. Tumor is 8.1 cm, moderately differentiated adenocarcinoma, tumor invades duodenal wall, peripancreatic soft tissue. Margins were negative. Lymphovascular space invasion was present, perineural invasion was present. Metastatic disease in 7 of 27 lymph nodes. 2. NGS Tissue Based: KRAS [id number], EGFR amplified and RAC 1 Amplified , GIBRAN and TMB low, Liquid Based 03/2022: KRAS, APC and RON mutation as well. Treatment History: Germline Testing: Negative 1. Diagnostic laparoscopy, pancreaticoduodenectomy, hepaticojejunostomy, pancreatico jejunostomy and gastrojejunostomy on December 04, 2019. Operative findings very bulky pancreatic head mass with significant adenopathy. Large SMA lymph node which appeared to be right at the onset of margin and was completed dissected off the SMA. 2. Post op complication and did not receive adjuvant chemo 3. 04/2021: Successful sphincterotomy and dilation of pancreaticojejunostomy stricture and placement of an 8mm covered stent 4. CT 01/2022- recurrence 5. [place] and Abraxane 03/16/2022-05/11/2022 ( elected to stop chemo) 6. Resumed [place] and Abraxane 11/23/2022- 12/14/2022- Stopped due to poor tolerance 7. Restarted [place] and Abraxane dose reduced, 2 week on and 2 weeks off 02/01/2023 HPI: Uriel Anderson is a 72 year old year old male here for follow up. Getting tired and also loosing weight and denies any fevers and or chills. Denies any worsening neuropathy as well. He is busy with her sister at the current moment as well. PAST MEDICAL HISTORY Diagnosis Date Acute bilateral deep vein thrombosis (DVT) of upper extremities (HCC) Adenocarcinoma of head of pancreas (HCC) Gastric outlet obstruction Obstructive sleep apnea Social History Tobacco Use Smoking status: Former Packs/day: 1.00 Years: 35.00 Additional pack years: 0.00 Total pack years: 35.00 Types: Cigarettes Quit date: 2018 Years since quittin.7 Passive exposure: Past Smokeless tobacco: Never Vaping Use Vaping Use: Never used Substance Use Topics Alcohol use: Not Currently Drug use: Never FAMILY HISTORY Problem Relation Age of Onset Anesthesia Problems No Family History Past medical, social and family history reviewed without any changes. REVIEW OF SYSTEMS GENERAL: No weight loss, malaise or fevers. No night sweats. HEENT: Negative for headaches, No changes in hearing or vision, no nose bleeds or other nasal problems. RESPIRATORY: Negative for cough, wheezing and shortness of breath CARDIOVASCULAR: Negative for chest pain, leg swelling and palpitations GI: Negative for abdominal discomfort, blood in stools or black stools and change in bowel habits : Negative for dysuria, frequency and incontinence MUSCULOSKELETAL: Negative for joint pain or swelling, back pain, and muscle pain. SKIN: Negative for lesions, rash, and itching. HEMATOLOGY/LYMPHOLOGY Negative for prolonged bleeding, bruising easily, and swollen nodes. NEURO: Negative for numbness or tingling of hands/feet. No weakness. PHYSICAL EXAMINATION: BP 104/70 Pulse 81 Temp (Src) 97.3 (Temporal) Resp 16 Ht 5' 7.48 (1.71m) Wt 175 lb 12.8 oz (79.7kg) SpO2 99% BMI 27.14 kg/(m^2). Wt 79.4 kg (175 lb) BMI 26.61 kg/m2 Last 3 Encounter Wt Readings: Date: Wt: 03/06/2020 79.4 kg (175 lb) 02/14/2020 84.9 kg (187 lb 2.7 oz) 02/14/2020 82.2 kg (181 lb 3.2 oz) General appearance:ECOG PERFORMANCE STATUS: 1- Restricted in physically strenuous activity. Carries out light duty. Patient in NAD. Skin: Skin color, texture, turgor normal. No rashes or lesions. Eyes: Anicteric sclera. Pupils are equally round and reactive to light. Extraocular movements are intact. Lymph Nodes: No cervical, supraclavicular, axillary or inguinal adenopathy. Oropharynx: Lips, mucosa, and tongue normal. Back: No pain to percussion. Negative SLR test Lungs clear to auscultation, No wheezing or rhonchi Heart: RRR without murmur, gallop, or rubs. Abdomen: Abdomen is soft but there is purulent drainage from around the pigtail catheter as well as the laparoscopic ports. Minimal tenderness. No rebound or guarding. Extremities: No deformities. No edema Neuro: Gait and speech normal. Reflexes normal and symmetric. Muscular strength intact. Sensation grossly intact. Rectal: Deferred : Deferred LABS: Glucose (mg/dL) Date Value 02/01/2023 172 02/11/2021 104 Potassium (mmol/L) Date Value 02/01/2023 4.4 02/11/2021 4.0 Sodium (mmol/L) Date Value 02/01/2023 136 02/11/2021 139 Chloride (mmol/L) Date Value 02/01/2023 102 02/11/2021 105 CO2 (mmol/L) Date Value 02/01/2023 23 02/11/2021 25 Creatinine (mg/dL) Date Value 02/01/2023 0.97 02/11/2021 0.49 BUN (mg/dL) Date Value 02/01/2023 22 02/11/2021 6 Anion Gap (mmol/L) Date Value 02/01/2023 11 02/11/2021 9 Calcium (mg/dL) Date Value 02/11/2021 9.5 Calcium, Total (mg/dL) Date Value 02/01/2023 10.7 Protein, Total (g/dL) Date Value 02/01/2023 7.2 02/11/2021 5.5 Albumin (g/dL) Date Value 02/01/2023 4.2 02/11/2021 2.5 Bilirubin, Total (mg/dL) Date Value 02/01/2023 1.3 02/11/2021 0.5 Alkaline Phosphatase (U/L) Date Value 02/01/2023 139 02/11/2021 84 AST (U/L) Date Value 02/01/2023 19 02/11/2021 10 ALT (U/L) Date Value 02/01/2023 23 02/11/2021 9 WBC Date Value Ref Range Status 02/01/2023 11.51 (H) 3.70 - 11.00 k/uL Final RBC Date Value Ref Range Status 02/01/2023 3.61 (L) 4.20 - 6.00 m/uL Final Hemoglobin Date Value Ref Range Status 02/01/2023 11.7 (L) 13.0 - 17.0 g/dL Final Hematocrit Date Value Ref Range Status 02/01/2023 35.3 (L) 39.0 - 51.0 % Final MCV Date Value Ref Range Status 02/01/2023 97.8 80.0 - 100.0 fL Final MCH Date Value Ref Range Status 02/01/2023 32.4 26.0 - 34.0 pg Final MCHC Date Value Ref Range Status 02/01/2023 33.1 30.5 - 36.0 g/dL Final RDW-CV Date Value Ref Range Status 02/01/2023 14.3 11.5 - 15.0 % Final Platelet Count Date Value Ref Range Status 02/01/2023 267 150 - 400 k/uL Final MPV Date Value Ref Range Status 02/01/2023 10.1 9.0 - 12.7 fL Final Abs Neut Date Value Ref Range Status 02/01/2023 9.04 (H) 1.45 - 7.50 k/uL Final Lymphocytes % Date Value Ref Range Status 02/01/2023 14.6 % Final Abs Lymph Date Value Ref Range Status 02/01/2023 1.68 1.00 - 4.00 k/uL Final Monocytes % Date Value Ref Range Status 02/01/2023 6.1 % Final Abs [place] Date Value Ref Range Status 02/01/2023 0.70 <0.87 k/uL Final Eosinophils % Date Value Ref Range Status 02/01/2023 0.2 % Final Abs Eosin Date Value Ref Range Status 02/01/2023 <0.03 <0.46 k/uL Final Basophils % Date Value Ref Range Status 02/01/2023 0.2 % Final Abs Baso Date Value Ref Range Status 02/01/2023 <0.03 <0.11 k/uL Final PATH: Whipple on November: SYNOPTIC REPORT OF MANJARREZ PATHOLOGIC FINDINGS WHIPPLE, GALLBLADER, OMENTUM: PANCREAS EXOCRINE WORKSHEET Specimen: Head of pancreas Body of pancreas Duodenum Stomach Common bile duct Gallbladder Procedure: Pancreaticoduodenectomy (Whipple resection), partial pancreatectomy Tumor Site: Pancreatic head Histologic Type: Ductal adenocarcinoma (NOS) Histologic Grade: G2: Moderately differentiated Tumor Size: Greatest dimension: 8.1 cm Microscopic Tumor Extension: Tumor invades duodenal wall Tumor invades peripancreatic soft tissues Tumor invades posterior surface of pancreas Tissue Specimen Type: Pancreaticoduodenal Resection Specimen Margins for Pancreaticoduodenal Resection Specimen: Pancreatic neck/parenchymal margin uninvolved by pancreatic high-grade intraepithelial neoplasia or invasive carcinoma Uncinate (retroperitoneal/superior mesentric artery) margin cannot be assessed Bile duct margin uninvolved by high-grade intraepithelial neoplasia or invasive carcinoma Proximal margin (Gastric or Duodenal) uninvolved by high-grade dysplasia or invasive carcinoma Distal margin (Duodenal or Jejunal) uninvolved by high-grade dysplasia or invasive carcinoma Treatment Effect: No known presurgical therapy Lymphovascular Invasion: Present Perineural Invasion: Present Pathologic Stage Classification (pTNM, AJCC 8th ed) TNM Descriptors: Not applicable Primary Tumor (pT): pT3: Tumor >4 cm in greatest dimension Regional lymph nodes (pN): pN2: Metastasis in four or more regional lymph nodes Number of lymph nodes involved: 7 Number of lymph nodes examined: 27 Distant Metastasis (pM): Not applicable/Not confirmed pathologically in this case Comment: Gallbladder with chronic cholecystitis and cholesterolosis. 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 Large fluid collection in the anterior abdominal wall which visualizes to the skin surface. This collection may arise near the pancreaticojejunostomy. 2. No definite findings to suggest metastatic disease in the abdomen or pelvis. 3. Calcifications within the urinary bladder, nonspecific. A urothelial lesion is not excluded. Consider urologic consultation. CT Pancreas 01/2022: 1. Since 03/15/2021, marked increase in central mesenteric and retroperitoneal lymphadenopathy, suspicious for disease progression. 2. 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 3. Unchanged ill-defined soft tissue surrounding the origin of the celiac artery and common hepatic artery, suspicious for recurrent neoplasm. 4. Status post Whipple procedure. A pancreatic duct stent remains in place. No new pancreatic ductal dilatation. 5. Unchanged heterogeneous attenuation of the pelvic marrow, nonspecific but favored to be secondary to marrow reconversion. Continued attention on subsequent studies is suggested. If warranted, consider further assessment with nuclear medicine bone scan. CT of the chest and Abd and Pelvis 05/2022: 1. Stable CT of the chest. Unchanged appearance of left lower lobe 4 mm nodule. No new or enlarging nodules are visualized. 2. Stable appearance of prominent lymph node in the anterior mediastinum. No new bulky intrathoracic adenopathy is seen. 3. Stable findings of prior granulomatous disease 1. Mesenteric and retroperitoneal lymphadenopathy as noted above. The majority of the visualized lymph nodes appear stable, however there is slight interval increase in size of an aortocaval node. Recommend continued follow-up. 2. Stable ill-defined soft tissue density/fat stranding in the origin of the celiac artery which may be on the basis of postsurgical change versus recurrent neoplasm. 3. Stable postsurgical changes in keeping with prior Whipple procedure. No pancreatic ductal dilation or recurrent mass is seen. 4. Previously described ill-defined soft tissue in the ellen hepatis is not well seen on the current study. CT Scan of the Chest and Abdomen and Pelvis 06/2022: 1. New reticulonodular opacities in the right lung, with an upper lung field predominance, most likely infectious/inflammatory in etiology. Consider follow-up to complete resolution. 2. Other subcentimeter nodular opacities measuring up to 7-8 mm, stable since 05/25/22 1. No interval change since 05/25/22. 2. Multiple mesenteric and peritoneal masses/lymphadenopathy, stable CT Scan of the Chest and Abdomen and Pelvis 10/2022: 1. Since 07/27/2022, decrease in right upper lobe tree-in-bud opacities, compatible with resolving infection/inflammation. 2. Additional nonspecific noncalcified pulmonary nodules measuring up to 0.7 cm are unchanged. 3. Unchanged 0.9 cm retrosternal nodule/lymph node. No progressive lymphadenopathy. 1. Since 07/27/2022, unchanged diffuse retroperitoneal and central mesenteric lymphadenopathy. Unchanged metastatic deposit along the anterior right kidney. 2. New geographic regions of hypodensity along the inferior margin of the left hepatic lobe, likely evolving sites of steatosis. Attention on subsequent studies is suggested. Assessment and Plan: Uriel Anderson is a 72 year old year old male here for follow up. T3, N2, M0, pancreatic adenocarcinoma. Patient with postoperative complications which precluded adjuvant chemo and did have additional admissions and procedures lastly a stent in the PJ stenosis in 04/2021. His CT, 01/2022 with sandy progression and he has recurrence. His initial disease state was very high risk. Post 4 cycles of therapy and with stable disease on CT 05/2022. Discussed the results and he wanted some time off chemo. Reviewed follow up imaging 10/2022 and still stable but he is more symptomatic and rising CA 19-9 and elected to restart [place] and Abraxane 11/23/2022. However, he had a very poor tolerance of therapy and has had declinind QOL. Therapy was held at that time 12/14/2022 Discussed the current status and rising CA 199 and options of no therapy, repeat chemo with dose modifications and Xeloda. He wants to restart [place] and Abraxane. Will dose reduce and have a 2 week on and 2 week off schedule Continue nutrition follow up Anemia- Improved off chemo DM- Follow endocrine See back next week for day 8 Thank you for the kind referral. If there are any questions and or concerns please do not hesitate to contact me at [phone]. Grace Bess MD Hematology/Medical Oncology [facility] CC: Giovanni Hamlin MD I spent a total of 30 minutes on the date of the service which included preparing to see the patient, [id number] patient care, completing clinical documentation, obtaining and/or reviewing separately obtained history, performing a medically appropriate examination, counseling and educating the patient/family/caregiver, ordering medications, tests, or procedures, and independently interpreting results (not separately reported). documented in this encounter [facility] 01-04-[address] [facility] 01-04-2023 History of Present illness Narrative PATIENT NAME: Uriel Anderson CLINIC NO.: [id number] ATTENDING PHYSICIAN: Grace Bess MD DATE OF SERVICE: January 04, 2023 Some of the elements of this note have been copied from my previous progress note dated 12/14/2022. All the information has been reviewed carefully. Dear Dr. Hamlin here is an update on a follow up visit on male Uriel Anderson at the clinic January 04, 2023 Diagnosis: 1. T3, N2, M0 pancreatic cancer. Tumor is 8.1 cm, moderately differentiated adenocarcinoma, tumor invades duodenal wall, peripancreatic soft tissue. Margins were negative. Lymphovascular space invasion was present, perineural invasion was present. Metastatic disease in 7 of 27 lymph nodes. 2. NGS Tissue Based: KRAS [id number], EGFR amplified and RAC 1 Amplified , GIBRAN and TMB low, Liquid Based 03/2022: KRAS, APC and RON mutation as well. Treatment History: Germline Testing: Negative 1. Diagnostic laparoscopy, pancreaticoduodenectomy, hepaticojejunostomy, pancreatico jejunostomy and gastrojejunostomy on December 04, 2019. Operative findings very bulky pancreatic head mass with significant adenopathy. Large SMA lymph node which appeared to be right at the onset of margin and was completed dissected off the SMA. 2. Post op complication and did not receive adjuvant chemo 3. 04/2021: Successful sphincterotomy and dilation of pancreaticojejunostomy stricture and placement of an 8mm covered stent 4. CT 01/2022- recurrence 5. [place] and Abraxane 03/16/2022-05/11/2022 ( elected to stop chemo) 6. Resumed [place] and Abraxane 11/23/2022- 12/14/2022- Stopped due to poor tolerance HPI: Uriel Anderson is a 72 year old year old male here for follow up. Patient gets very tired after chemo and has noticed much decreased tolerance and also increased fatigue. He denies any fevers and or chills. He denies any pain and has been eating well. PAST MEDICAL HISTORY Diagnosis Date Acute bilateral deep vein thrombosis (DVT) of upper extremities (HCC) Adenocarcinoma of head of pancreas (HCC) Gastric outlet obstruction Obstructive sleep apnea Social History Tobacco Use Smoking status: Former Packs/day: 1.00 Years: 35.00 Additional pack years: 0.00 Total pack years: 35.00 Types: Cigarettes Quit date: 2019 Years since quittin.6 Passive exposure: Past Smokeless tobacco: Never Vaping Use Vaping Use: Never used Substance Use Topics Alcohol use: Not Currently Drug use: Never FAMILY HISTORY Problem Relation Age of Onset Anesthesia Problems No Family History Past medical, social and family history reviewed without any changes. REVIEW OF SYSTEMS GENERAL: No weight loss, malaise or fevers. No night sweats. HEENT: Negative for headaches, No changes in hearing or vision, no nose bleeds or other nasal problems. RESPIRATORY: Negative for cough, wheezing and shortness of breath CARDIOVASCULAR: Negative for chest pain, leg swelling and palpitations GI: Negative for abdominal discomfort, blood in stools or black stools and change in bowel habits : Negative for dysuria, frequency and incontinence MUSCULOSKELETAL: Negative for joint pain or swelling, back pain, and muscle pain. SKIN: Negative for lesions, rash, and itching. HEMATOLOGY/LYMPHOLOGY Negative for prolonged bleeding, bruising easily, and swollen nodes. NEURO: Negative for numbness or tingling of hands/feet. No weakness. PHYSICAL EXAMINATION: BP 104/63 Pulse 78 Temp (Src) 97.2 (Temporal) Resp 18 Ht 5' 7.48 (1.71m) Wt 182 lb 6.4 oz (82.7kg) SpO2 100% BMI 28.16 kg/(m^2). Wt 79.4 kg (175 lb) BMI 26.61 kg/m2 Last 3 Encounter Wt Readings: Date: Wt: 03/06/2020 79.4 kg (175 lb) 02/14/2020 84.9 kg (187 lb 2.7 oz) 02/14/2020 82.2 kg (181 lb 3.2 oz) General appearance:ECOG PERFORMANCE STATUS: 1- Restricted in physically strenuous activity. Carries out light duty. Patient in NAD. Skin: Skin color, texture, turgor normal. No rashes or lesions. Eyes: Anicteric sclera. Pupils are equally round and reactive to light. Extraocular movements are intact. Lymph Nodes: No cervical, supraclavicular, axillary or inguinal adenopathy. Oropharynx: Lips, mucosa, and tongue normal. Back: No pain to percussion. Negative SLR test Lungs clear to auscultation, No wheezing or rhonchi Heart: RRR without murmur, gallop, or rubs. Abdomen: Abdomen is soft but there is purulent drainage from around the pigtail catheter as well as the laparoscopic ports. Minimal tenderness. No rebound or guarding. Extremities: No deformities. No edema Neuro: Gait and speech normal. Reflexes normal and symmetric. Muscular strength intact. Sensation grossly intact. Rectal: Deferred : Deferred LABS: Glucose (mg/dL) Date Value 01/04/2023 188 02/11/2021 104 Potassium (mmol/L) Date Value 01/04/2023 4.5 02/11/2021 4.0 Sodium (mmol/L) Date Value 01/04/2023 136 02/11/2021 139 Chloride (mmol/L) Date Value 01/04/2023 104 02/11/2021 105 CO2 (mmol/L) Date Value 01/04/2023 24 02/11/2021 25 Creatinine (mg/dL) Date Value 01/04/2023 0.80 02/11/2021 0.49 BUN (mg/dL) Date Value 01/04/2023 21 02/11/2021 6 Anion Gap (mmol/L) Date Value 01/04/2023 8 02/11/2021 9 Calcium (mg/dL) Date Value 02/11/2021 9.5 Calcium, Total (mg/dL) Date Value 01/04/2023 10.3 Protein, Total (g/dL) Date Value 01/04/2023 7.0 02/11/2021 5.5 Albumin (g/dL) Date Value 01/04/2023 4.1 02/11/2021 2.5 Bilirubin, Total (mg/dL) Date Value 01/04/2023 0.9 02/11/2021 0.5 Alkaline Phosphatase (U/L) Date Value 01/04/2023 138 02/11/2021 84 AST (U/L) Date Value 01/04/2023 25 02/11/2021 10 ALT (U/L) Date Value 01/04/2023 34 02/11/2021 9 WBC Date Value Ref Range Status 01/04/2023 9.86 3.70 - 11.00 k/uL Final RBC Date Value Ref Range Status 01/04/2023 3.52 (L) 4.20 - 6.00 m/uL Final Hemoglobin Date Value Ref Range Status 01/04/2023 11.7 (L) 13.0 - 17.0 g/dL Final Hematocrit Date Value Ref Range Status 01/04/2023 35.9 (L) 39.0 - 51.0 % Final MCV Date Value Ref Range Status 01/04/2023 102.0 (H) 80.0 - 100.0 fL Final MCH Date Value Ref Range Status 01/04/2023 33.2 26.0 - 34.0 pg Final MCHC Date Value Ref Range Status 01/04/2023 32.6 30.5 - 36.0 g/dL Final RDW-CV Date Value Ref Range Status 01/04/2023 16.8 (H) 11.5 - 15.0 % Final Platelet Count Date Value Ref Range Status 01/04/2023 329 150 - 400 k/uL Final MPV Date Value Ref Range Status 01/04/2023 10.2 9.0 - 12.7 fL Final Abs Neut Date Value Ref Range Status 01/04/2023 6.98 1.45 - 7.50 k/uL Final Lymphocytes % Date Value Ref Range Status 01/04/2023 18.9 % Final Abs Lymph Date Value Ref Range Status 01/04/2023 1.86 1.00 - 4.00 k/uL Final Monocytes % Date Value Ref Range Status 01/04/2023 8.8 % Final Abs [place] Date Value Ref Range Status 01/04/2023 0.87 (H) <0.87 k/uL Final Eosinophils % Date Value Ref Range Status 01/04/2023 0.4 % Final Abs Eosin Date Value Ref Range Status 01/04/2023 0.04 <0.46 k/uL Final Basophils % Date Value Ref Range Status 01/04/2023 0.5 % Final Abs Baso Date Value Ref Range Status 01/04/2023 0.05 <0.11 k/uL Final PATH: Whipple on November: SYNOPTIC REPORT OF MANJARREZ PATHOLOGIC FINDINGS TAHMINA GALLGULSHANR, OMENTUM: PANCREAS EXOCRINE WORKSHEET Specimen: Head of pancreas Body of pancreas Duodenum Stomach Common bile duct Gallbladder Procedure: Pancreaticoduodenectomy (Whipple resection), partial pancreatectomy Tumor Site: Pancreatic head Histologic Type: Ductal adenocarcinoma (NOS) Histologic Grade: G2: Moderately differentiated Tumor Size: Greatest dimension: 8.1 cm Microscopic Tumor Extension: Tumor invades duodenal wall Tumor invades peripancreatic soft tissues Tumor invades posterior surface of pancreas Tissue Specimen Type: Pancreaticoduodenal Resection Specimen Margins for Pancreaticoduodenal Resection Specimen: Pancreatic neck/parenchymal margin uninvolved by pancreatic high-grade intraepithelial neoplasia or invasive carcinoma Uncinate (retroperitoneal/superior mesentric artery) margin cannot be assessed Bile duct margin uninvolved by high-grade intraepithelial neoplasia or invasive carcinoma Proximal margin (Gastric or Duodenal) uninvolved by high-grade dysplasia or invasive carcinoma Distal margin (Duodenal or Jejunal) uninvolved by high-grade dysplasia or invasive carcinoma Treatment Effect: No known presurgical therapy Lymphovascular Invasion: Present Perineural Invasion: Present Pathologic Stage Classification (pTNM, AJCC 8th ed) TNM Descriptors: Not applicable Primary Tumor (pT): pT3: Tumor >4 cm in greatest dimension Regional lymph nodes (pN): pN2: Metastasis in four or more regional lymph nodes Number of lymph nodes involved: 7 Number of lymph nodes examined: 27 Distant Metastasis (pM): Not applicable/Not confirmed pathologically in this case Comment: Gallbladder with chronic cholecystitis and cholesterolosis. 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 Large fluid collection in the anterior abdominal wall which visualizes to the skin surface. This collection may arise near the pancreaticojejunostomy. 2. No definite findings to suggest metastatic disease in the abdomen or pelvis. 3. Calcifications within the urinary bladder, nonspecific. A urothelial lesion is not excluded. Consider urologic consultation. CT Pancreas 01/2022: 1. Since 03/15/2021, marked increase in central mesenteric and retroperitoneal lymphadenopathy, suspicious for disease progression. 2. 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 3. Unchanged ill-defined soft tissue surrounding the origin of the celiac artery and common hepatic artery, suspicious for recurrent neoplasm. 4. Status post Whipple procedure. A pancreatic duct stent remains in place. No new pancreatic ductal dilatation. 5. Unchanged heterogeneous attenuation of the pelvic marrow, nonspecific but favored to be secondary to marrow reconversion. Continued attention on subsequent studies is suggested. If warranted, consider further assessment with nuclear medicine bone scan. CT of the chest and Abd and Pelvis 05/2022: 1. Stable CT of the chest. Unchanged appearance of left lower lobe 4 mm nodule. No new or enlarging nodules are visualized. 2. Stable appearance of prominent lymph node in the anterior mediastinum. No new bulky intrathoracic adenopathy is seen. 3. Stable findings of prior granulomatous disease 1. Mesenteric and retroperitoneal lymphadenopathy as noted above. The majority of the visualized lymph nodes appear stable, however there is slight interval increase in size of an aortocaval node. Recommend continued follow-up. 2. Stable ill-defined soft tissue density/fat stranding in the origin of the celiac artery which may be on the basis of postsurgical change versus recurrent neoplasm. 3. Stable postsurgical changes in keeping with prior Whipple procedure. No pancreatic ductal dilation or recurrent mass is seen. 4. Previously described ill-defined soft tissue in the ellen hepatis is not well seen on the current study. CT Scan of the Chest and Abdomen and Pelvis 06/2022: 1. New reticulonodular opacities in the right lung, with an upper lung field predominance, most likely infectious/inflammatory in etiology. Consider follow-up to complete resolution. 2. Other subcentimeter nodular opacities measuring up to 7-8 mm, stable since 05/25/22 1. No interval change since 05/25/22. 2. Multiple mesenteric and peritoneal masses/lymphadenopathy, stable CT Scan of the Chest and Abdomen and Pelvis 10/2022: 1. Since 07/27/2022, decrease in right upper lobe tree-in-bud opacities, compatible with resolving infection/inflammation. 2. Additional nonspecific noncalcified pulmonary nodules measuring up to 0.7 cm are unchanged. 3. Unchanged 0.9 cm retrosternal nodule/lymph node. No progressive lymphadenopathy. 1. Since 07/27/2022, unchanged diffuse retroperitoneal and central mesenteric lymphadenopathy. Unchanged metastatic deposit along the anterior right kidney. 2. New geographic regions of hypodensity along the inferior margin of the left hepatic lobe, likely evolving sites of steatosis. Attention on subsequent studies is suggested. Assessment and Plan: Uriel Anderson is a 72 year old year old male here for follow up. T3, N2, M0, pancreatic adenocarcinoma. Patient with postoperative complications which precluded adjuvant chemo and did have additional admissions and procedures lastly a stent in the PJ stenosis in 04/2021. His CT, 01/2022 with sandy progression and he has recurrence. His initial disease state was very high risk. Post 4 cycles of therapy and with stable disease on CT 05/2022. Discussed the results and he wanted some time off chemo. Reviewed follow up imaging 10/2022 and still stable but he is more symptomatic and rising CA 19-9 and elected to restart [place] and Abraxane 11/23/2022. However, he has very poor tolerannce of therapy and has had declinind QOL. At this time will hold therapy and monitor him on a monthly basis and he agrees Continue nutrition follow up Anemia- Improved off chemo DM- Follow endocrine RTC in1 month with labs Thank you for the kind referral. If there are any questions and or concerns please do not hesitate to contact me at [phone]. Grace Bess MD Hematology/Medical Oncology [facility] CC: Giovanni Hamlin MD I spent a total of 30 minutes on the date of the service which included preparing to see the patient, [id number] patient care, completing clinical documentation, obtaining and/or reviewing separately obtained history, performing a medically appropriate examination, counseling and educating the patient/family/caregiver, ordering medications, tests, or procedures, and independently interpreting results (not separately reported). documented in this encounter [facility] 12-21-2022 Miscellaneous Notes Pt's notified of results and that script was called into pharmacy. They will pick this up tonight. Josephine Salomon RN Call placed to pt's home phone, no answer, voicemail has not been set up yet. Call placed to and message left requesting a call back to our office. Josephine Salomon RN Thank you. Please call patient and explain. Since he is having increased phlegm production and mild cough, I will send antibiotic to his local pharmacy as well. Greta Wetzel PA-C Call received from riley Choi at [facility] stating pt's CT is negative for PE. Shows subtle nodular tree-in-bud opacities predominantly in the right upper lobe concerning for infectious bronchiolitis. Josephine Salomon RN documented in this encounter [facility] 12-21-[address] [facility] 12-21-[address] [facility] 12-21-2022 History of Present illness Narrative Left sutures to forehead removed as ordered per Jacoby Wetzel PA-C, patient tolerated well, S/S of infections reinforced patient and spouse verbalizes understanding Lashaun Riojas RN documented in this encounter [facility] 12-21-2022 History of Present illness Narrative PATIENT NAME: Uriel Anderson [facility] NO.: [id number] ATTENDING PHYSICIAN: Grace Bess MD DATE OF SERVICE: Dec 21, 2022 (Elements copied from Dr. Bess's note dated December 14, 2022, have been reviewed and updated where appropriate, and all reflect current assessment and medical decision making during today's encounter, December 21, 2022) CC: I am weak Diagnosis: 1. T3, N2, M0 pancreatic cancer. Tumor is 8.1 cm, moderately differentiated adenocarcinoma, tumor invades duodenal wall, peripancreatic soft tissue. Margins were negative. Lymphovascular space invasion was present, perineural invasion was present. Metastatic disease in 7 of 27 lymph nodes. 2. NGS Tissue Based: KRAS [id number], EGFR amplified and RAC 1 Amplified , GIBRAN and TMB low, Liquid Based 03/2022: KRAS, APC and RON mutation as well. Treatment History: Germline Testing: Negative 1. Diagnostic laparoscopy, pancreaticoduodenectomy, hepaticojejunostomy, pancreatico jejunostomy and gastrojejunostomy on December 04, 2019. Operative findings very bulky pancreatic head mass with significant adenopathy. Large SMA lymph node which appeared to be right at the onset of margin and was completed dissected off the SMA. 2. Post op complication and did not receive adjuvant chemo 3. 04/2021: Successful sphincterotomy and dilation of pancreaticojejunostomy stricture and placement of an 8mm covered stent 4. CT 01/2022- recurrence 5. [place] and Abraxane 03/16/2022-05/11/2022 ( elected to stop chemo) 6. Resumed [place] and Abraxane 11/23/2022 HPI: Alfred returns for day 8 of treatment. He complains of weakness, fatigue and LINDSEY. He feel while at [facility] 12/15/22 and went to [facility] ER. Ct head and cervical spine were negative. He did require 4 sutures to the left upper eye area. ER records were reviewed. He has continued to have increasing weakness and LINDSEY. Denies chest pain, leg pain or swelling. He cannot do any work for more than 5 minutes without resting. He is eating and drinking well. PAST MEDICAL HISTORY Diagnosis Date Acute bilateral deep vein thrombosis (DVT) of upper extremities (HCC) Adenocarcinoma of head of pancreas (HCC) Gastric outlet obstruction Obstructive sleep apnea Social History Tobacco Use Smoking status: Former Packs/day: 1.00 Years: 35.00 Total pack years: 35.00 Types: Cigarettes Quit date: 2018 Years since quittin.5 Passive exposure: Past Smokeless tobacco: Never Vaping Use Vaping Use: Never used Substance Use Topics Alcohol use: Not Currently Drug use: Never FAMILY HISTORY Problem Relation Age of Onset Anesthesia Problems No Family History Past medical, social and family history reviewed without any changes. REVIEW OF SYSTEMS GENERAL: No weight loss, malaise or fevers. No night sweats. +fatigue HEENT: Negative for headaches, No changes in hearing or vision, no nose bleeds or other nasal problems. RESPIRATORY: Negative for cough, wheezing +LINDSEY CARDIOVASCULAR: Negative for chest pain, leg swelling and palpitations GI: Negative for abdominal discomfort, blood in stools or black stools and change in bowel habits : Negative for dysuria, frequency and incontinence MUSCULOSKELETAL: Negative for joint pain or swelling, back pain, and muscle pain. SKIN: Negative for lesions, rash, and itching. HEMATOLOGY/LYMPHOLOGY Negative for prolonged bleeding, bruising easily, and swollen nodes. NEURO: Negative for numbness or tingling of hands/feet. No weakness. PHYSICAL EXAMINATION: BP 103/68 Pulse 94 Temp (Src) 97.1 (Temporal) Resp 20 Ht 5' 7.48 (1.71m) Wt 182 lb 3.2 oz (82.6kg) SpO2 100% BMI 28.13 kg/(m^2). ECOG PERFORMANCE STATUS: 1- Restricted in physically strenuous activity. Carries out light duty. General: Alert and oriented, no distress, pleasant and cooperative. Heart: Regular, normal S1 and S2, no murmurs, rubs, or gallops Lungs: Clear to auscultation bilaterally Abdomen: Benign Extremities: Feet/ankles without edema, posterior tibial pulses full and symmetrical Skin: healed laceration with 4 sutures to left forehead LABS: Glucose (mg/dL) Date Value 12/21/2022 192 02/11/2021 104 Potassium (mmol/L) Date Value 12/21/2022 4.0 02/11/2021 4.0 Sodium (mmol/L) Date Value 12/21/2022 135 02/11/2021 139 Chloride (mmol/L) Date Value 12/21/2022 102 02/11/2021 105 CO2 (mmol/L) Date Value 12/21/2022 22 02/11/2021 25 Creatinine (mg/dL) Date Value 12/21/2022 0.92 02/11/2021 0.49 BUN (mg/dL) Date Value 12/21/2022 22 02/11/2021 6 Anion Gap (mmol/L) Date Value 12/21/2022 11 02/11/2021 9 Calcium (mg/dL) Date Value 02/11/2021 9.5 Calcium, Total (mg/dL) Date Value 12/21/2022 10.5 Protein, Total (g/dL) Date Value 12/21/2022 7.0 02/11/2021 5.5 Albumin (g/dL) Date Value 12/21/2022 3.9 02/11/2021 2.5 Bilirubin, Total (mg/dL) Date Value 12/21/2022 0.8 02/11/2021 0.5 Alkaline Phosphatase (U/L) Date Value 12/21/2022 131 02/11/2021 84 AST (U/L) Date Value 12/21/2022 25 02/11/2021 10 ALT (U/L) Date Value 12/21/2022 27 02/11/2021 9 WBC Date Value Ref Range Status 12/21/2022 3.75 3.70 - 11.00 k/uL Final RBC Date Value Ref Range Status 12/21/2022 2.98 (L) 4.20 - 6.00 m/uL Final Hemoglobin Date Value Ref Range Status 12/21/2022 9.7 (L) 13.0 - 17.0 g/dL Final Hematocrit Date Value Ref Range Status 12/21/2022 30.0 (L) 39.0 - 51.0 % Final MCV Date Value Ref Range Status 12/21/2022 100.7 (H) 80.0 - 100.0 fL Final MCH Date Value Ref Range Status 12/21/2022 32.6 26.0 - 34.0 pg Final MCHC Date Value Ref Range Status 12/21/2022 32.3 30.5 - 36.0 g/dL Final RDW-CV Date Value Ref Range Status 12/21/2022 17.4 (H) 11.5 - 15.0 % Final Platelet Count Date Value Ref Range Status 12/21/2022 365 150 - 400 k/uL Final MPV Date Value Ref Range Status 12/21/2022 9.5 9.0 - 12.7 fL Final Abs Neut Date Value Ref Range Status 12/21/2022 1.94 1.45 - 7.50 k/uL Final Lymphocytes % Date Value Ref Range Status 12/21/2022 37.6 % Final Abs Lymph Date Value Ref Range Status 12/21/2022 1.41 1.00 - 4.00 k/uL Final Monocytes % Date Value Ref Range Status 12/21/2022 8.5 % Final Abs [place] Date Value Ref Range Status 12/21/2022 0.32 <0.87 k/uL Final Eosinophils % Date Value Ref Range Status 12/21/2022 0.0 % Final Abs Eosin Date Value Ref Range Status 12/21/2022 <0.03 <0.46 k/uL Final Basophils % Date Value Ref Range Status 12/21/2022 0.8 % Final Abs Baso Date Value Ref Range Status 12/21/2022 0.03 <0.11 k/uL Final PATH: Whipple on November: SYNOPTIC REPORT OF MANJARREZ PATHOLOGIC FINDINGS WHIPPLE, GALLBLADER, OMENTUM: PANCREAS EXOCRINE WORKSHEET Specimen: Head of pancreas Body of pancreas Duodenum Stomach Common bile duct Gallbladder Procedure: Pancreaticoduodenectomy (Whipple resection), partial pancreatectomy Tumor Site: Pancreatic head Histologic Type: Ductal adenocarcinoma (NOS) Histologic Grade: G2: Moderately differentiated Tumor Size: Greatest dimension: 8.1 cm Microscopic Tumor Extension: Tumor invades duodenal wall Tumor invades peripancreatic soft tissues Tumor invades posterior surface of pancreas Tissue Specimen Type: Pancreaticoduodenal Resection Specimen Margins for Pancreaticoduodenal Resection Specimen: Pancreatic neck/parenchymal margin uninvolved by pancreatic high-grade intraepithelial neoplasia or invasive carcinoma Uncinate (retroperitoneal/superior mesentric artery) margin cannot be assessed Bile duct margin uninvolved by high-grade intraepithelial neoplasia or invasive carcinoma Proximal margin (Gastric or Duodenal) uninvolved by high-grade dysplasia or invasive carcinoma Distal margin (Duodenal or Jejunal) uninvolved by high-grade dysplasia or invasive carcinoma Treatment Effect: No known presurgical therapy Lymphovascular Invasion: Present Perineural Invasion: Present Pathologic Stage Classification (pTNM, AJCC 8th ed) TNM Descriptors: Not applicable Primary Tumor (pT): pT3: Tumor >4 cm in greatest dimension Regional lymph nodes (pN): pN2: Metastasis in four or more regional lymph nodes Number of lymph nodes involved: 7 Number of lymph nodes examined: 27 Distant Metastasis (pM): Not applicable/Not confirmed pathologically in this case Comment: Gallbladder with chronic cholecystitis and cholesterolosis. 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 Large fluid collection in the anterior abdominal wall which visualizes to the skin surface. This collection may arise near the pancreaticojejunostomy. 2. No definite findings to suggest metastatic disease in the abdomen or pelvis. 3. Calcifications within the urinary bladder, nonspecific. A urothelial lesion is not excluded. Consider urologic consultation. CT Pancreas 01/2022: 1. Since 03/15/2021, marked increase in central mesenteric and retroperitoneal lymphadenopathy, suspicious for disease progression. 2. 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 3. Unchanged ill-defined soft tissue surrounding the origin of the celiac artery and common hepatic artery, suspicious for recurrent neoplasm. 4. Status post Whipple procedure. A pancreatic duct stent remains in place. No new pancreatic ductal dilatation. 5. Unchanged heterogeneous attenuation of the pelvic marrow, nonspecific but favored to be secondary to marrow reconversion. Continued attention on subsequent studies is suggested. If warranted, consider further assessment with nuclear medicine bone scan. CT of the chest and Abd and Pelvis 05/2022: 1. Stable CT of the chest. Unchanged appearance of left lower lobe 4 mm nodule. No new or enlarging nodules are visualized. 2. Stable appearance of prominent lymph node in the anterior mediastinum. No new bulky intrathoracic adenopathy is seen. 3. Stable findings of prior granulomatous disease 1. Mesenteric and retroperitoneal lymphadenopathy as noted above. The majority of the visualized lymph nodes appear stable, however there is slight interval increase in size of an aortocaval node. Recommend continued follow-up. 2. Stable ill-defined soft tissue density/fat stranding in the origin of the celiac artery which may be on the basis of postsurgical change versus recurrent neoplasm. 3. Stable postsurgical changes in keeping with prior Whipple procedure. No pancreatic ductal dilation or recurrent mass is seen. 4. Previously described ill-defined soft tissue in the ellen hepatis is not well seen on the current study. CT Scan of the Chest and Abdomen and Pelvis 06/2022: 1. New reticulonodular opacities in the right lung, with an upper lung field predominance, most likely infectious/inflammatory in etiology. Consider follow-up to complete resolution. 2. Other subcentimeter nodular opacities measuring up to 7-8 mm, stable since 05/25/22 1. No interval change since 05/25/22. 2. Multiple mesenteric and peritoneal masses/lymphadenopathy, stable CT Scan of the Chest and Abdomen and Pelvis 10/2022: 1. Since 07/27/2022, decrease in right upper lobe tree-in-bud opacities, compatible with resolving infection/inflammation. 2. Additional nonspecific noncalcified pulmonary nodules measuring up to 0.7 cm are unchanged. 3. Unchanged 0.9 cm retrosternal nodule/lymph node. No progressive lymphadenopathy. 1. Since 07/27/2022, unchanged diffuse retroperitoneal and central mesenteric lymphadenopathy. Unchanged metastatic deposit along the anterior right kidney. 2. New geographic regions of hypodensity along the inferior margin of the left hepatic lobe, likely evolving sites of steatosis. Attention on subsequent studies is suggested. Assessment and Plan: Uriel Anderson is a 72 year old year old male here for follow up. T3, N2, M0, pancreatic adenocarcinoma. Patient with postoperative complications which precluded adjuvant chemo and did have additional admissions and procedures lastly a stent in the PJ stenosis in 04/2021. His CT, 01/2022 with sandy progression and he has recurrence. His initial disease state was very high risk. Post 4 cycles of therapy and with stable disease on CT 05/2022. Discussed the results and he wanted some time off chemo. Reviewed follow up imaging 10/2022 and still stable but he is more symptomatic and rising CA 19-9 and elected to restart [place] and Abraxane 11/23/2022. [place] dose was decreased with cycle 2 day 1 because of fatigue, anemia and decreased QOL. He is here for day 8, however he is having progressive fatigue, weakness and now LINDSEY. Will hold treatment today and get a CT chest to rule out PE. He will return in 1 week for follow up and further discussion about treatment adjustments. Continue nutrition follow up Anemia- Improved after transfusion and will follow DM- Follow endocrine LINDSEY- chest ct to rule out PE Laceration left forehead--will remove sutures as they have been in for 6 days and it appears healed. Greta Wetzel PA-C CC: Giovanni Hamlin MD documented in this encounter [facility] 12-15-2022 Hospital Discharge instructions Additional Instructions Tetanus was updated today in emergency department Sutures should be removed in 5 to 7 days Apply ice to affected area Neosporin daily Sunscreen after healed to reduce scarring For signs of infection redness, swelling, purulent drainage follow-up immediately Follow-up with your doctor for recheck in the next 3 to 5 days [facility] Work Phone: 12-14-[address] [facility] 12-05-[address] [facility] 12-05-2022 History of Present illness Narrative PATIENT NAME: Uriel Anderson [facility] NO.: [id number] ATTENDING PHYSICIAN: Grace eBss MD DATE OF SERVICE: December 05, 2022 (Elements copied from Dr. Bess's note dated November 30, 2022, have been reviewed and updated where appropriate, and all reflect current assessment and medical decision making during today's encounter, December 05, 2022) CC: Follow up labs Diagnosis: 1. T3, N2, M0 pancreatic cancer. Tumor is 8.1 cm, moderately differentiated adenocarcinoma, tumor invades duodenal wall, peripancreatic soft tissue. Margins were negative. Lymphovascular space invasion was present, perineural invasion was present. Metastatic disease in 7 of 27 lymph nodes. 2. NGS Tissue Based: KRAS [id number], EGFR amplified and RAC 1 Amplified , GIBRAN and TMB low, Liquid Based 03/2022: KRAS, APC and RON mutation as well. Treatment History: Germline Testing: Negative 1. Diagnostic laparoscopy, pancreaticoduodenectomy, hepaticojejunostomy, pancreatico jejunostomy and gastrojejunostomy on December 04, 2019. Operative findings very bulky pancreatic head mass with significant adenopathy. Large SMA lymph node which appeared to be right at the onset of margin and was completed dissected off the SMA. 2. Post op complication and did not receive adjuvant chemo 3. 04/2021: Successful sphincterotomy and dilation of pancreaticojejunostomy stricture and placement of an 8mm covered stent 4. CT 01/2022- recurrence 5. [place] and Abraxane 03/16/2022-05/11/2022 ( elected to stop chemo) 6. Resumed [place] and Abraxane 11/23/2022 HPI: Uriel returns for labs. Received day 8 cycle 5 gem abraxane last week. He is extremely tired. This morning he was lightheaded too. She does have LINDSEY and has to stop while he is mowing the lawn because he gets so tired. Denies any bleeding. 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 He has no other complaints today PAST MEDICAL HISTORY Diagnosis Date Acute bilateral deep vein thrombosis (DVT) of upper extremities (HCC) Adenocarcinoma of head of pancreas (HCC) Gastric outlet obstruction Obstructive sleep apnea Social History Tobacco Use Smoking status: Former Packs/day: 1.00 Years: 35.00 Total pack years: 35.00 Types: Cigarettes Quit date: 2018 Years since quittin.5 Passive exposure: Past Smokeless tobacco: Never Vaping Use Vaping Use: Never used Substance Use Topics Alcohol use: Not Currently Drug use: Never FAMILY HISTORY Problem Relation Age of Onset Anesthesia Problems No Family History Past medical, social and family history reviewed without any changes. REVIEW OF SYSTEMS GENERAL: No weight loss, malaise or fevers. No night sweats. +fatigue HEENT: Negative for headaches, No changes in hearing or vision, no nose bleeds or other nasal problems. RESPIRATORY: Negative for cough, wheezing, + LINDSEY CARDIOVASCULAR: Negative for chest pain, leg swelling and palpitations GI: Negative for abdominal discomfort, blood in stools or black stools and change in bowel habits : Negative for dysuria, frequency and incontinence MUSCULOSKELETAL: Negative for joint pain or swelling, back pain, and muscle pain. SKIN: Negative for lesions, rash, and itching. HEMATOLOGY/LYMPHOLOGY Negative for prolonged bleeding, bruising easily, and swollen nodes. NEURO: Negative for numbness or tingling of hands/feet. No weakness. PHYSICAL EXAMINATION: BP 97/51 Pulse 97 Temp (Src) 97 (Temporal) Resp 16 Ht 5' 7.48 (1.71m) Wt 184 lb 3.2 oz (83.6kg) SpO2 100% BMI 28.44 kg/(m^2). ECOG PERFORMANCE STATUS: 1- Restricted in physically strenuous activity. Carries out light duty. General: Alert and oriented, no distress, pleasant and cooperative. Heart: Regular, normal S1 and S2, no murmurs, rubs, or gallops Lungs: Clear to auscultation bilaterally Abdomen: Benign Extremities: Feet/ankles without edema, posterior tibial pulses full and symmetrical Skin: pale LABS: Glucose (mg/dL) Date Value 11/30/2022 273 02/11/2021 104 Potassium (mmol/L) Date Value 11/30/2022 4.0 02/11/2021 4.0 Sodium (mmol/L) Date Value 11/30/2022 134 02/11/2021 139 Chloride (mmol/L) Date Value 11/30/2022 103 02/11/2021 105 CO2 (mmol/L) Date Value 11/30/2022 25 02/11/2021 25 Creatinine (mg/dL) Date Value 11/30/2022 0.80 02/11/2021 0.49 BUN (mg/dL) Date Value 11/30/2022 15 02/11/2021 6 Anion Gap (mmol/L) Date Value 11/30/2022 6 02/11/2021 9 Calcium (mg/dL) Date Value 02/11/2021 9.5 Calcium, Total (mg/dL) Date Value 11/30/2022 10.6 Protein, Total (g/dL) Date Value 11/30/2022 6.8 02/11/2021 5.5 Albumin (g/dL) Date Value 11/30/2022 3.3 02/11/2021 2.5 Bilirubin, Total (mg/dL) Date Value 11/30/2022 1.0 02/11/2021 0.5 Alkaline Phosphatase (U/L) Date Value 11/30/2022 121 02/11/2021 84 AST (U/L) Date Value 11/30/2022 24 02/11/2021 10 ALT (U/L) Date Value 11/30/2022 17 02/11/2021 9 WBC Date Value Ref Range Status 12/05/2022 5.09 3.70 - 11.00 k/uL Preliminary RBC Date Value Ref Range Status 12/05/2022 2.26 (L) 4.20 - 6.00 m/uL Preliminary Hemoglobin Date Value Ref Range Status 12/05/2022 7.2 (L) 13.0 - 17.0 g/dL Preliminary Hematocrit Date Value Ref Range Status 12/05/2022 22.1 (L) 39.0 - 51.0 % Preliminary MCV Date Value Ref Range Status 12/05/2022 97.8 80.0 - 100.0 fL Preliminary MCH Date Value Ref Range Status 12/05/2022 31.9 26.0 - 34.0 pg Preliminary MCHC Date Value Ref Range Status 12/05/2022 32.6 30.5 - 36.0 g/dL Preliminary RDW-CV Date Value Ref Range Status 12/05/2022 15.9 (H) 11.5 - 15.0 % Preliminary Platelet Count Date Value Ref Range Status 12/05/2022 190 150 - 400 k/uL Preliminary MPV Date Value Ref Range Status 12/05/2022 9.3 9.0 - 12.7 fL Preliminary Abs Neut Date Value Ref Range Status 11/30/2022 3.78 1.45 - 7.50 k/uL Final Lymphocytes % Date Value Ref Range Status 11/30/2022 30.9 % Final Abs Lymph Date Value Ref Range Status 11/30/2022 1.86 1.00 - 4.00 k/uL Final Monocytes % Date Value Ref Range Status 11/30/2022 4.3 % Final Abs [place] Date Value Ref Range Status 11/30/2022 0.26 <0.87 k/uL Final Eosinophils % Date Value Ref Range Status 11/30/2022 0.3 % Final Abs Eosin Date Value Ref Range Status 11/30/2022 <0.03 <0.46 k/uL Final Basophils % Date Value Ref Range Status 11/30/2022 0.5 % Final Abs Baso Date Value Ref Range Status 11/30/2022 0.03 <0.11 k/uL Final PATH: Whipple on November: SYNOPTIC REPORT OF MANJARREZ PATHOLOGIC FINDINGS WHIPPLE, GALLBLADER, OMENTUM: PANCREAS EXOCRINE WORKSHEET Specimen: Head of pancreas Body of pancreas Duodenum Stomach Common bile duct Gallbladder Procedure: Pancreaticoduodenectomy (Whipple resection), partial pancreatectomy Tumor Site: Pancreatic head Histologic Type: Ductal adenocarcinoma (NOS) Histologic Grade: G2: Moderately differentiated Tumor Size: Greatest dimension: 8.1 cm Microscopic Tumor Extension: Tumor invades duodenal wall Tumor invades peripancreatic soft tissues Tumor invades posterior surface of pancreas Tissue Specimen Type: Pancreaticoduodenal Resection Specimen Margins for Pancreaticoduodenal Resection Specimen: Pancreatic neck/parenchymal margin uninvolved by pancreatic high-grade intraepithelial neoplasia or invasive carcinoma Uncinate (retroperitoneal/superior mesentric artery) margin cannot be assessed Bile duct margin uninvolved by high-grade intraepithelial neoplasia or invasive carcinoma Proximal margin (Gastric or Duodenal) uninvolved by high-grade dysplasia or invasive carcinoma Distal margin (Duodenal or Jejunal) uninvolved by high-grade dysplasia or invasive carcinoma Treatment Effect: No known presurgical therapy Lymphovascular Invasion: Present Perineural Invasion: Present Pathologic Stage Classification (pTNM, AJCC 8th ed) TNM Descriptors: Not applicable Primary Tumor (pT): pT3: Tumor >4 cm in greatest dimension Regional lymph nodes (pN): pN2: Metastasis in four or more regional lymph nodes Number of lymph nodes involved: 7 Number of lymph nodes examined: 27 Distant Metastasis (pM): Not applicable/Not confirmed pathologically in this case Comment: Gallbladder with chronic cholecystitis and cholesterolosis. 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 Large fluid collection in the anterior abdominal wall which visualizes to the skin surface. This collection may arise near the pancreaticojejunostomy. 2. No definite findings to suggest metastatic disease in the abdomen or pelvis. 3. Calcifications within the urinary bladder, nonspecific. A urothelial lesion is not excluded. Consider urologic consultation. CT Pancreas 01/2022: 1. Since 03/15/2021, marked increase in central mesenteric and retroperitoneal lymphadenopathy, suspicious for disease progression. 2. 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 3. Unchanged ill-defined soft tissue surrounding the origin of the celiac artery and common hepatic artery, suspicious for recurrent neoplasm. 4. Status post Whipple procedure. A pancreatic duct stent remains in place. No new pancreatic ductal dilatation. 5. Unchanged heterogeneous attenuation of the pelvic marrow, nonspecific but favored to be secondary to marrow reconversion. Continued attention on subsequent studies is suggested. If warranted, consider further assessment with nuclear medicine bone scan. CT of the chest and Abd and Pelvis 05/2022: 1. Stable CT of the chest. Unchanged appearance of left lower lobe 4 mm nodule. No new or enlarging nodules are visualized. 2. Stable appearance of prominent lymph node in the anterior mediastinum. No new bulky intrathoracic adenopathy is seen. 3. Stable findings of prior granulomatous disease 1. Mesenteric and retroperitoneal lymphadenopathy as noted above. The majority of the visualized lymph nodes appear stable, however there is slight interval increase in size of an aortocaval node. Recommend continued follow-up. 2. Stable ill-defined soft tissue density/fat stranding in the origin of the celiac artery which may be on the basis of postsurgical change versus recurrent neoplasm. 3. Stable postsurgical changes in keeping with prior Whipple procedure. No pancreatic ductal dilation or recurrent mass is seen. 4. Previously described ill-defined soft tissue in the ellen hepatis is not well seen on the current study. CT Scan of the Chest and Abdomen and Pelvis 06/2022: 1. New reticulonodular opacities in the right lung, with an upper lung field predominance, most likely infectious/inflammatory in etiology. Consider follow-up to complete resolution. 2. Other subcentimeter nodular opacities measuring up to 7-8 mm, stable since 05/25/22 1. No interval change since 05/25/22. 2. Multiple mesenteric and peritoneal masses/lymphadenopathy, stable CT Scan of the Chest and Abdomen and Pelvis 10/2022: 1. Since 07/27/2022, decrease in right upper lobe tree-in-bud opacities, compatible with resolving infection/inflammation. 2. Additional nonspecific noncalcified pulmonary nodules measuring up to 0.7 cm are unchanged. 3. Unchanged 0.9 cm retrosternal nodule/lymph node. No progressive lymphadenopathy. 1. Since 07/27/2022, unchanged diffuse retroperitoneal and central mesenteric lymphadenopathy. Unchanged metastatic deposit along the anterior right kidney. 2. New geographic regions of hypodensity along the inferior margin of the left hepatic lobe, likely evolving sites of steatosis. Attention on subsequent studies is suggested. Assessment and Plan: Uriel Anderson is a 72 year old year old male here for follow up. T3, N2, M0, pancreatic adenocarcinoma. Patient with postoperative complications which precluded adjuvant chemo and did have additional admissions and procedures lastly a stent in the PJ stenosis in 04/2021. His CT, 01/2022 with sandy progression and he has recurrence. His initial disease state was very high risk. Post 4 cycles of therapy and with stable disease on CT 05/2022. Discussed the results and he wanted some time off chemo. Reviewed follow up imaging 10/2022 and still stable but he is more symptomatic and rising CA 19-9 and elected to restart [place] and Abraxane 11/23/2022. Tolerating well, however, is having significant anemia, likely from chemotherapy. Will type and cross and transfuse 1 unit of PRBCs. He will return in 1 week for the next cycle of chemotherapy, and will like need dose reductions. Continue nutrition follow up DM- Follow endocrine Greta Wetzel PA-C CC: Giovanni Hamlin MD documented in this encounter [facility] 11-30-[address] [facility] 11-30-2022 History of Present illness Narrative PATIENT NAME: Uriel Anderson [facility] NO.: [id number] ATTENDING PHYSICIAN: Grace Bess MD DATE OF SERVICE: November 30, 2022 Some of the elements of this note have been copied from my previous progress note dated 11/10/2022. All the information has been reviewed carefully. Dear Dr. Hamlin here is an update on a follow up visit on male Uriel Anderson at the clinic November 30, 2022 Diagnosis: 1. T3, N2, M0 pancreatic cancer. Tumor is 8.1 cm, moderately differentiated adenocarcinoma, tumor invades duodenal wall, peripancreatic soft tissue. Margins were negative. Lymphovascular space invasion was present, perineural invasion was present. Metastatic disease in 7 of 27 lymph nodes. 2. NGS Tissue Based: KRAS [id number], EGFR amplified and RAC 1 Amplified , GIBRAN and TMB low, Liquid Based 03/2022: KRAS, APC and RON mutation as well. Treatment History: Germline Testing: Negative 1. Diagnostic laparoscopy, pancreaticoduodenectomy, hepaticojejunostomy, pancreatico jejunostomy and gastrojejunostomy on December 04, 2019. Operative findings very bulky pancreatic head mass with significant adenopathy. Large SMA lymph node which appeared to be right at the onset of margin and was completed dissected off the SMA. 2. Post op complication and did not receive adjuvant chemo 3. 04/2021: Successful sphincterotomy and dilation of pancreaticojejunostomy stricture and placement of an 8mm covered stent 4. CT 01/2022- recurrence 5. [place] and Abraxane 03/16/2022-05/11/2022 ( elected to stop chemo) 6. Resumed [place] and Abraxane 11/23/2022 HPI: Uriel Anderson is a 72 year old year old male here for follow up. He feels better just more tired. Garde 1 neuropathy and also denies any abdominal pain. Seeing endocrine for DM management as well. PAST MEDICAL HISTORY Diagnosis Date Acute bilateral deep vein thrombosis (DVT) of upper extremities (HCC) Adenocarcinoma of head of pancreas (HCC) Gastric outlet obstruction Obstructive sleep apnea Social History Tobacco Use Smoking status: Former Packs/day: 1.00 Years: 35.00 Total pack years: 35.00 Types: Cigarettes Quit date: 2018 Years since quittin.5 Passive exposure: Past Smokeless tobacco: Never Vaping Use Vaping Use: Never used Substance Use Topics Alcohol use: Not Currently Drug use: Never FAMILY HISTORY Problem Relation Age of Onset Anesthesia Problems No Family History Past medical, social and family history reviewed without any changes. REVIEW OF SYSTEMS GENERAL: No weight loss, malaise or fevers. No night sweats. HEENT: Negative for headaches, No changes in hearing or vision, no nose bleeds or other nasal problems. RESPIRATORY: Negative for cough, wheezing and shortness of breath CARDIOVASCULAR: Negative for chest pain, leg swelling and palpitations GI: Negative for abdominal discomfort, blood in stools or black stools and change in bowel habits : Negative for dysuria, frequency and incontinence MUSCULOSKELETAL: Negative for joint pain or swelling, back pain, and muscle pain. SKIN: Negative for lesions, rash, and itching. HEMATOLOGY/LYMPHOLOGY Negative for prolonged bleeding, bruising easily, and swollen nodes. NEURO: Negative for numbness or tingling of hands/feet. No weakness. PHYSICAL EXAMINATION: BP 117/67 Pulse 68 Temp (Src) 96.7 (Temporal) Resp 16 Ht 5' 7.48 [verified by 2 caregivers with shoes on[ (1.71m) Wt 185 lb (83.9kg) SpO2 98% BMI 28.56 kg/(m^2). Wt 79.4 kg (175 lb) BMI 26.61 kg/m2 Last 3 Encounter Wt Readings: Date: Wt: 03/06/2020 79.4 kg (175 lb) 02/14/2020 84.9 kg (187 lb 2.7 oz) 02/14/2020 82.2 kg (181 lb 3.2 oz) General appearance:ECOG PERFORMANCE STATUS: 1- Restricted in physically strenuous activity. Carries out light duty. Patient in NAD. Skin: Skin color, texture, turgor normal. No rashes or lesions. Eyes: Anicteric sclera. Pupils are equally round and reactive to light. Extraocular movements are intact. Lymph Nodes: No cervical, supraclavicular, axillary or inguinal adenopathy. Oropharynx: Lips, mucosa, and tongue normal. Back: No pain to percussion. Negative SLR test Lungs clear to auscultation, No wheezing or rhonchi Heart: RRR without murmur, gallop, or rubs. Abdomen: Abdomen is soft but there is purulent drainage from around the pigtail catheter as well as the laparoscopic ports. Minimal tenderness. No rebound or guarding. Extremities: No deformities. No edema Neuro: Gait and speech normal. Reflexes normal and symmetric. Muscular strength intact. Sensation grossly intact. Rectal: Deferred : Deferred LABS: Glucose (mg/dL) Date Value 11/30/2022 273 02/11/2021 104 Potassium (mmol/L) Date Value 11/30/2022 4.0 02/11/2021 4.0 Sodium (mmol/L) Date Value 11/30/2022 134 02/11/2021 139 Chloride (mmol/L) Date Value 11/30/2022 103 02/11/2021 105 CO2 (mmol/L) Date Value 11/30/2022 25 02/11/2021 25 Creatinine (mg/dL) Date Value 11/30/2022 0.80 02/11/2021 0.49 BUN (mg/dL) Date Value 11/30/2022 15 02/11/2021 6 Anion Gap (mmol/L) Date Value 11/30/2022 6 02/11/2021 9 Calcium (mg/dL) Date Value 02/11/2021 9.5 Calcium, Total (mg/dL) Date Value 11/30/2022 10.6 Protein, Total (g/dL) Date Value 11/30/2022 6.8 02/11/2021 5.5 Albumin (g/dL) Date Value 11/30/2022 3.3 02/11/2021 2.5 Bilirubin, Total (mg/dL) Date Value 11/30/2022 1.0 02/11/2021 0.5 Alkaline Phosphatase (U/L) Date Value 11/30/2022 121 02/11/2021 84 AST (U/L) Date Value 11/30/2022 24 02/11/2021 10 ALT (U/L) Date Value 11/30/2022 17 02/11/2021 9 WBC Date Value Ref Range Status 11/30/2022 6.02 3.70 - 11.00 k/uL Final RBC Date Value Ref Range Status 11/30/2022 2.61 (L) 4.20 - 6.00 m/uL Final Hemoglobin Date Value Ref Range Status 11/30/2022 8.2 (L) 13.0 - 17.0 g/dL Final Hematocrit Date Value Ref Range Status 11/30/2022 25.2 (L) 39.0 - 51.0 % Final MCV Date Value Ref Range Status 11/30/2022 96.6 80.0 - 100.0 fL Final MCH Date Value Ref Range Status 11/30/2022 31.4 26.0 - 34.0 pg Final MCHC Date Value Ref Range Status 11/30/2022 32.5 30.5 - 36.0 g/dL Final RDW-CV Date Value Ref Range Status 11/30/2022 14.1 11.5 - 15.0 % Final Platelet Count Date Value Ref Range Status 11/30/2022 217 150 - 400 k/uL Final MPV Date Value Ref Range Status 11/30/2022 10.0 9.0 - 12.7 fL Final Abs Neut Date Value Ref Range Status 11/30/2022 3.78 1.45 - 7.50 k/uL Final Lymphocytes % Date Value Ref Range Status 11/30/2022 30.9 % Final Abs Lymph Date Value Ref Range Status 11/30/2022 1.86 1.00 - 4.00 k/uL Final Monocytes % Date Value Ref Range Status 11/30/2022 4.3 % Final Abs [place] Date Value Ref Range Status 11/30/2022 0.26 <0.87 k/uL Final Eosinophils % Date Value Ref Range Status 11/30/2022 0.3 % Final Abs Eosin Date Value Ref Range Status 11/30/2022 <0.03 <0.46 k/uL Final Basophils % Date Value Ref Range Status 11/30/2022 0.5 % Final Abs Baso Date Value Ref Range Status 11/30/2022 0.03 <0.11 k/uL Final PATH: Whipple on November: SYNOPTIC REPORT OF MANJARREZ PATHOLOGIC FINDINGS WHIPPLE, GALLBLADER, OMENTUM: PANCREAS EXOCRINE WORKSHEET Specimen: Head of pancreas Body of pancreas Duodenum Stomach Common bile duct Gallbladder Procedure: Pancreaticoduodenectomy (Whipple resection), partial pancreatectomy Tumor Site: Pancreatic head Histologic Type: Ductal adenocarcinoma (NOS) Histologic Grade: G2: Moderately differentiated Tumor Size: Greatest dimension: 8.1 cm Microscopic Tumor Extension: Tumor invades duodenal wall Tumor invades peripancreatic soft tissues Tumor invades posterior surface of pancreas Tissue Specimen Type: Pancreaticoduodenal Resection Specimen Margins for Pancreaticoduodenal Resection Specimen: Pancreatic neck/parenchymal margin uninvolved by pancreatic high-grade intraepithelial neoplasia or invasive carcinoma Uncinate (retroperitoneal/superior mesentric artery) margin cannot be assessed Bile duct margin uninvolved by high-grade intraepithelial neoplasia or invasive carcinoma Proximal margin (Gastric or Duodenal) uninvolved by high-grade dysplasia or invasive carcinoma Distal margin (Duodenal or Jejunal) uninvolved by high-grade dysplasia or invasive carcinoma Treatment Effect: No known presurgical therapy Lymphovascular Invasion: Present Perineural Invasion: Present Pathologic Stage Classification (pTNM, AJCC 8th ed) TNM Descriptors: Not applicable Primary Tumor (pT): pT3: Tumor >4 cm in greatest dimension Regional lymph nodes (pN): pN2: Metastasis in four or more regional lymph nodes Number of lymph nodes involved: 7 Number of lymph nodes examined: 27 Distant Metastasis (pM): Not applicable/Not confirmed pathologically in this case Comment: Gallbladder with chronic cholecystitis and cholesterolosis. 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 Large fluid collection in the anterior abdominal wall which visualizes to the skin surface. This collection may arise near the pancreaticojejunostomy. 2. No definite findings to suggest metastatic disease in the abdomen or pelvis. 3. Calcifications within the urinary bladder, nonspecific. A urothelial lesion is not excluded. Consider urologic consultation. CT Pancreas 01/2022: 1. Since 03/15/2021, marked increase in central mesenteric and retroperitoneal lymphadenopathy, suspicious for disease progression. 2. 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 3. Unchanged ill-defined soft tissue surrounding the origin of the celiac artery and common hepatic artery, suspicious for recurrent neoplasm. 4. Status post Whipple procedure. A pancreatic duct stent remains in place. No new pancreatic ductal dilatation. 5. Unchanged heterogeneous attenuation of the pelvic marrow, nonspecific but favored to be secondary to marrow reconversion. Continued attention on subsequent studies is suggested. If warranted, consider further assessment with nuclear medicine bone scan. CT of the chest and Abd and Pelvis 05/2022: 1. Stable CT of the chest. Unchanged appearance of left lower lobe 4 mm nodule. No new or enlarging nodules are visualized. 2. Stable appearance of prominent lymph node in the anterior mediastinum. No new bulky intrathoracic adenopathy is seen. 3. Stable findings of prior granulomatous disease 1. Mesenteric and retroperitoneal lymphadenopathy as noted above. The majority of the visualized lymph nodes appear stable, however there is slight interval increase in size of an aortocaval node. Recommend continued follow-up. 2. Stable ill-defined soft tissue density/fat stranding in the origin of the celiac artery which may be on the basis of postsurgical change versus recurrent neoplasm. 3. Stable postsurgical changes in keeping with prior Whipple procedure. No pancreatic ductal dilation or recurrent mass is seen. 4. Previously described ill-defined soft tissue in the ellen hepatis is not well seen on the current study. CT Scan of the Chest and Abdomen and Pelvis 06/2022: 1. New reticulonodular opacities in the right lung, with an upper lung field predominance, most likely infectious/inflammatory in etiology. Consider follow-up to complete resolution. 2. Other subcentimeter nodular opacities measuring up to 7-8 mm, stable since 05/25/22 1. No interval change since 05/25/22. 2. Multiple mesenteric and peritoneal masses/lymphadenopathy, stable CT Scan of the Chest and Abdomen and Pelvis 10/2022: 1. Since 07/27/2022, decrease in right upper lobe tree-in-bud opacities, compatible with resolving infection/inflammation. 2. Additional nonspecific noncalcified pulmonary nodules measuring up to 0.7 cm are unchanged. 3. Unchanged 0.9 cm retrosternal nodule/lymph node. No progressive lymphadenopathy. 1. Since 07/27/2022, unchanged diffuse retroperitoneal and central mesenteric lymphadenopathy. Unchanged metastatic deposit along the anterior right kidney. 2. New geographic regions of hypodensity along the inferior margin of the left hepatic lobe, likely evolving sites of steatosis. Attention on subsequent studies is suggested. Assessment and Plan: Uriel Anderson is a 72 year old year old male here for follow up. T3, N2, M0, pancreatic adenocarcinoma. Patient with postoperative complications which precluded adjuvant chemo and did have additional admissions and procedures lastly a stent in the PJ stenosis in 04/2021. His CT, 01/2022 with sandy progression and he has recurrence. His initial disease state was very high risk. Post 4 cycles of therapy and with stable disease on CT 05/2022. Discussed the results and he wanted some time off chemo. Reviewed follow up imaging 10/2022 and still stable but he is more symptomatic and rising CA 19-9 and elected to restart [place] and Abraxane 11/23/2022 Continue nutrition follow up Anemia- Will repeat CBC next week as he is more anemic with the start of the chemo DM- Follow endocrine RTC next week for cbc check Thank you for the kind referral. If there are any questions and or concerns please do not hesitate to contact me at [phone]. Grace Bess MD Hematology/Medical Oncology [facility] CC: Giovanni Hamlin MD I spent a total of 30 minutes on the date of the service which included preparing to see the patient, [id number] patient care, completing clinical documentation, obtaining and/or reviewing separately obtained history, performing a medically appropriate examination, counseling and educating the patient/family/caregiver, ordering medications, tests, or procedures, and independently interpreting results (not separately reported). documented in this encounter [facility] 11-28-[address] Keyes office spoke with Praveen. She states patient was seen at their office on 11/[address] Keyes. Praveen will be faxing over Dr Keyes office note from this visit to our office sometime today. [facility] Records faxed to Dr. Leiva. Please refer patient to Endocrinology dx Type 2 diabetes mellitus Their office to call patient after review of records. Darline, Please fax records to Dr Leiva. Lionel, Please follow up on this appt Thank you documented in this encounter [facility] 11-23-[address] [facility] 11-23-2022 History of Present illness Narrative PATIENT NAME: Uriel Anderson [facility] NO.: [id number] ATTENDING PHYSICIAN: Grace Bess MD DATE OF SERVICE: November 23, 2022 (Elements copied from Dr. Bess's note dated November 10, 2022, have been reviewed and updated where appropriate, and all reflect current assessment and medical decision making during today's encounter, November 23, 2022) CC: Here to start treatment Diagnosis: 1. T3, N2, M0 pancreatic cancer. Tumor is 8.1 cm, moderately differentiated adenocarcinoma, tumor invades duodenal wall, peripancreatic soft tissue. Margins were negative. Lymphovascular space invasion was present, perineural invasion was present. Metastatic disease in 7 of 27 lymph nodes. 2. NGS Tissue Based: KRAS [id number], EGFR amplified and RAC 1 Amplified , GIBRAN and TMB low, Liquid Based 03/2022: KRAS, APC and RON mutation as well. Treatment History: Germline Testing: Negative 1. Diagnostic laparoscopy, pancreaticoduodenectomy, hepaticojejunostomy, pancreatico jejunostomy and gastrojejunostomy on December 04, 2019. Operative findings very bulky pancreatic head mass with significant adenopathy. Large SMA lymph node which appeared to be right at the onset of margin and was completed dissected off the SMA. 2. Post op complication and did not receive adjuvant chemo 3. 04/2021: Successful sphincterotomy and dilation of pancreaticojejunostomy stricture and placement of an 8mm covered stent 4. CT 01/2022- recurrence 5. [place] and Abraxane 03/16/2022-05/11/2022 ( elected to stop chemo); restart 11/23/2022 due to symptoms and elevating ca199 HPI: Alfred returns for follow up and to resume treatment. He has been off of therapy since May 2022, however recently has had a decline in appetite, increased fatigue, abdominal pain, and a rising ca19-9. He did see his PCP for his uncontrolled DM. His insulin was changed to Novolin 70/30 25 units am and pm. He still feels like his sugars are all over the place and he would like to see an corn breeder. Today he complains of complete exhaustion . Denies any SOB, dizziness, cough, or bowel issues. He is unable to complete normal tasks without taking a break due to weakness and fatigue. PAST MEDICAL HISTORY Diagnosis Date Acute bilateral deep vein thrombosis (DVT) of upper extremities (HCC) Adenocarcinoma of head of pancreas (HCC) Gastric outlet obstruction Obstructive sleep apnea Social History Tobacco Use Smoking status: Former Packs/day: 1.00 Years: 35.00 Pack years: 35.00 Types: Cigarettes Quit date: 2018 Years since quittin.5 Passive exposure: Past Smokeless tobacco: Never Vaping Use Vaping Use: Never used Substance Use Topics Alcohol use: Not Currently Drug use: Never FAMILY HISTORY Problem Relation Age of Onset Anesthesia Problems No Family History Past medical, social and family history reviewed without any changes. REVIEW OF SYSTEMS GENERAL: No weight loss, or fevers. No night sweats. +fatigue and decreased appetite HEENT: Negative for headaches, No changes in hearing or vision, no nose bleeds or other nasal problems. RESPIRATORY: Negative for cough, wheezing and shortness of breath CARDIOVASCULAR: Negative for chest pain, leg swelling and palpitations GI: Negative for abdominal discomfort, blood in stools or black stools and change in bowel habits : Negative for dysuria, frequency and incontinence MUSCULOSKELETAL: Negative for joint pain or swelling, back pain, and muscle pain. SKIN: Negative for lesions, rash, and itching. HEMATOLOGY/LYMPHOLOGY Negative for prolonged bleeding, bruising easily, and swollen nodes. NEURO: Negative for numbness or tingling of hands/feet. No weakness. PHYSICAL EXAMINATION: BP 106/64 Pulse 92 Temp (Src) 97.3 (Temporal) Resp 16 Ht 5' 6.85 (1.70m) Wt 184 lb 6.4 oz (83.6kg) SpO2 100% BMI 29.01 kg/(m^2). ECOG PERFORMANCE STATUS: 1- Restricted in physically strenuous activity. Carries out light duty. General: Alert and oriented, no distress, pleasant and cooperative. Heart: Regular, normal S1 and S2, no murmurs, rubs, or gallops Lungs: Clear to auscultation bilaterally Abdomen: Benign Extremities: Feet/ankles without edema, posterior tibial pulses full and symmetrical LABS: Glucose (mg/dL) Date Value 11/23/2022 251 02/11/2021 104 Potassium (mmol/L) Date Value 11/23/2022 4.1 02/11/2021 4.0 Sodium (mmol/L) Date Value 11/23/2022 133 02/11/2021 139 Chloride (mmol/L) Date Value 11/23/2022 101 02/11/2021 105 CO2 (mmol/L) Date Value 11/23/2022 23 02/11/2021 25 Creatinine (mg/dL) Date Value 11/23/2022 0.80 02/11/2021 0.49 BUN (mg/dL) Date Value 11/23/2022 15 02/11/2021 6 Anion Gap (mmol/L) Date Value 11/23/2022 9 02/11/2021 9 Calcium (mg/dL) Date Value 02/11/2021 9.5 Calcium, Total (mg/dL) Date Value 11/23/2022 10.4 Protein, Total (g/dL) Date Value 11/23/2022 7.1 02/11/2021 5.5 Albumin (g/dL) Date Value 11/23/2022 3.5 02/11/2021 2.5 Bilirubin, Total (mg/dL) Date Value 11/23/2022 1.0 02/11/2021 0.5 Alkaline Phosphatase (U/L) Date Value 11/23/2022 136 02/11/2021 84 AST (U/L) Date Value 11/23/2022 13 02/11/2021 10 ALT (U/L) Date Value 11/23/2022 13 02/11/2021 9 WBC Date Value Ref Range Status 11/23/2022 10.81 3.70 - 11.00 k/uL Final RBC Date Value Ref Range Status 11/23/2022 3.38 (L) 4.20 - 6.00 m/uL Final Hemoglobin Date Value Ref Range Status 11/23/2022 10.7 (L) 13.0 - 17.0 g/dL Final Hematocrit Date Value Ref Range Status 11/23/2022 32.6 (L) 39.0 - 51.0 % Final MCV Date Value Ref Range Status 11/23/2022 96.4 80.0 - 100.0 fL Final MCH Date Value Ref Range Status 11/23/2022 31.7 26.0 - 34.0 pg Final MCHC Date Value Ref Range Status 11/23/2022 32.8 30.5 - 36.0 g/dL Final RDW-CV Date Value Ref Range Status 11/23/2022 13.9 11.5 - 15.0 % Final Platelet Count Date Value Ref Range Status 11/23/2022 269 150 - 400 k/uL Final MPV Date Value Ref Range Status 11/23/2022 10.9 9.0 - 12.7 fL Final Abs Neut Date Value Ref Range Status 11/23/2022 8.35 (H) 1.45 - 7.50 k/uL Final Lymphocytes % Date Value Ref Range Status 11/23/2022 14.5 % Final Abs Lymph Date Value Ref Range Status 11/23/2022 1.57 1.00 - 4.00 k/uL Final Monocytes % Date Value Ref Range Status 11/23/2022 7.1 % Final Abs [place] Date Value Ref Range Status 11/23/2022 0.77 <0.87 k/uL Final Eosinophils % Date Value Ref Range Status 11/23/2022 0.5 % Final Abs Eosin Date Value Ref Range Status 11/23/2022 0.05 <0.46 k/uL Final Basophils % Date Value Ref Range Status 11/23/2022 0.3 % Final Abs Baso Date Value Ref Range Status 11/23/2022 0.03 <0.11 k/uL Final PATH: Whipple on November: SYNOPTIC REPORT OF MANJARREZ PATHOLOGIC FINDINGS HAMIPPAUGUST, GALLBLADER, OMENTUM: PANCREAS EXOCRINE WORKSHEET Specimen: Head of pancreas Body of pancreas Duodenum Stomach Common bile duct Gallbladder Procedure: Pancreaticoduodenectomy (Whipple resection), partial pancreatectomy Tumor Site: Pancreatic head Histologic Type: Ductal adenocarcinoma (NOS) Histologic Grade: G2: Moderately differentiated Tumor Size: Greatest dimension: 8.1 cm Microscopic Tumor Extension: Tumor invades duodenal wall Tumor invades peripancreatic soft tissues Tumor invades posterior surface of pancreas Tissue Specimen Type: Pancreaticoduodenal Resection Specimen Margins for Pancreaticoduodenal Resection Specimen: Pancreatic neck/parenchymal margin uninvolved by pancreatic high-grade intraepithelial neoplasia or invasive carcinoma Uncinate (retroperitoneal/superior mesentric artery) margin cannot be assessed Bile duct margin uninvolved by high-grade intraepithelial neoplasia or invasive carcinoma Proximal margin (Gastric or Duodenal) uninvolved by high-grade dysplasia or invasive carcinoma Distal margin (Duodenal or Jejunal) uninvolved by high-grade dysplasia or invasive carcinoma Treatment Effect: No known presurgical therapy Lymphovascular Invasion: Present Perineural Invasion: Present Pathologic Stage Classification (pTNM, AJCC 8th ed) TNM Descriptors: Not applicable Primary Tumor (pT): pT3: Tumor >4 cm in greatest dimension Regional lymph nodes (pN): pN2: Metastasis in four or more regional lymph nodes Number of lymph nodes involved: 7 Number of lymph nodes examined: 27 Distant Metastasis (pM): Not applicable/Not confirmed pathologically in this case Comment: Gallbladder with chronic cholecystitis and cholesterolosis. 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 Large fluid collection in the anterior abdominal wall which visualizes to the skin surface. This collection may arise near the pancreaticojejunostomy. 2. No definite findings to suggest metastatic disease in the abdomen or pelvis. 3. Calcifications within the urinary bladder, nonspecific. A urothelial lesion is not excluded. Consider urologic consultation. CT Pancreas 01/2022: 1. Since 03/15/2021, marked increase in central mesenteric and retroperitoneal lymphadenopathy, suspicious for disease progression. 2. 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 3. Unchanged ill-defined soft tissue surrounding the origin of the celiac artery and common hepatic artery, suspicious for recurrent neoplasm. 4. Status post Whipple procedure. A pancreatic duct stent remains in place. No new pancreatic ductal dilatation. 5. Unchanged heterogeneous attenuation of the pelvic marrow, nonspecific but favored to be secondary to marrow reconversion. Continued attention on subsequent studies is suggested. If warranted, consider further assessment with nuclear medicine bone scan. CT of the chest and Abd and Pelvis 05/2022: 1. Stable CT of the chest. Unchanged appearance of left lower lobe 4 mm nodule. No new or enlarging nodules are visualized. 2. Stable appearance of prominent lymph node in the anterior mediastinum. No new bulky intrathoracic adenopathy is seen. 3. Stable findings of prior granulomatous disease 1. Mesenteric and retroperitoneal lymphadenopathy as noted above. The majority of the visualized lymph nodes appear stable, however there is slight interval increase in size of an aortocaval node. Recommend continued follow-up. 2. Stable ill-defined soft tissue density/fat stranding in the origin of the celiac artery which may be on the basis of postsurgical change versus recurrent neoplasm. 3. Stable postsurgical changes in keeping with prior Whipple procedure. No pancreatic ductal dilation or recurrent mass is seen. 4. Previously described ill-defined soft tissue in the ellen hepatis is not well seen on the current study. CT Scan of the Chest and Abdomen and Pelvis 06/2022: 1. New reticulonodular opacities in the right lung, with an upper lung field predominance, most likely infectious/inflammatory in etiology. Consider follow-up to complete resolution. 2. Other subcentimeter nodular opacities measuring up to 7-8 mm, stable since 05/25/22 1. No interval change since 05/25/22. 2. Multiple mesenteric and peritoneal masses/lymphadenopathy, stable CT Scan of the Chest and Abdomen and Pelvis 10/2022: 1. Since 07/27/2022, decrease in right upper lobe tree-in-bud opacities, compatible with resolving infection/inflammation. 2. Additional nonspecific noncalcified pulmonary nodules measuring up to 0.7 cm are unchanged. 3. Unchanged 0.9 cm retrosternal nodule/lymph node. No progressive lymphadenopathy. 1. Since 07/27/2022, unchanged diffuse retroperitoneal and central mesenteric lymphadenopathy. Unchanged metastatic deposit along the anterior right kidney. 2. New geographic regions of hypodensity along the inferior margin of the left hepatic lobe, likely evolving sites of steatosis. Attention on subsequent studies is suggested. Assessment and Plan: Uriel Anderson is a 72 year old year old male here for follow up. T3, N2, M0, pancreatic adenocarcinoma. Patient with postoperative complications which precluded adjuvant chemo and did have additional admissions and procedures lastly a stent in the PJ stenosis in 04/2021. His CT, 01/2022 with sandy progression and he has recurrence. His initial disease state was very high risk. Post 4 cycles of therapy and with stable disease on CT 05/2022. Discussed the results and he would like some time off chemo. Reviewed follow up imaging 10/2022 and still stable but he is more symptomatic and rising [place] [address] Bess recommended restarting treatment. Again discussed the POC today with the patient and . Will restart Gemzar and abraxane today and see him in 1 week for day 8. Continue nutrition follow up Anemia- Monitor Diabetes, uncontrolled--will refer to endocrinology at patient's request. Greta Wetzel PA-C CC: Giovanni Hamlin MD documented in this encounter [facility] 11-10-2022 Miscellaneous Notes Spoke with pt's who states she will get ahold of his PCP right now. Instructed to take pt to ER if they are not able to get ahold of his PCP. Verbalized understanding. Call placed to Sahra at Dr Salinas's office. Notified her of pt's glucose today. She states she will notify Dr Salinas of this. Josephine Salomon RN Message left again on pt's cell voicemail. Home number not accepting messages. Josephine Salomon RN ----- Message from Grace Bess MD sent at 11/10/2022 10:36 AM EDT ----- Please have him call PCP hilary as his sugar is [phone] or he needs to head to ER Pt's glucose in the office today is 782. Call placed to pt's cell number and message left requesting pt to proceed to ER per Dr Bess's recommendations. Requested pt to call our office back. Unable to leave voicemail on home phone because it has not been set up yet. Josephine Salomon RN documented in this encounter [facility] 11-10-[address] [facility] 11-10-2022 History of Present illness Narrative PATIENT NAME: Uriel Anderson [facility] NO.: [id number] ATTENDING PHYSICIAN: Grace Bses MD DATE OF SERVICE: November 10, 2022 Some of the elements of this note have been copied from my previous progress note dated 09/29/2022. All the information has been reviewed carefully. Dear Dr. Hamlin here is an update on a follow up visit on male Uriel Anderson at the clinic November 10, 2022 Diagnosis: 1. T3, N2, M0 pancreatic cancer. Tumor is 8.1 cm, moderately differentiated adenocarcinoma, tumor invades duodenal wall, peripancreatic soft tissue. Margins were negative. Lymphovascular space invasion was present, perineural invasion was present. Metastatic disease in 7 of 27 lymph nodes. 2. NGS Tissue Based: KRAS [id number], EGFR amplified and RAC 1 Amplified , GIBRAN and TMB low, Liquid Based 03/2022: KRAS, APC and RON mutation as well. Treatment History: Germline Testing: Negative 1. Diagnostic laparoscopy, pancreaticoduodenectomy, hepaticojejunostomy, pancreatico jejunostomy and gastrojejunostomy on December 04, 2019. Operative findings very bulky pancreatic head mass with significant adenopathy. Large SMA lymph node which appeared to be right at the onset of margin and was completed dissected off the SMA. 2. Post op complication and did not receive adjuvant chemo 3. 04/2021: Successful sphincterotomy and dilation of pancreaticojejunostomy stricture and placement of an 8mm covered stent 4. CT 01/2022- recurrence 5. [place] and Abraxane 03/16/2022-05/11/2022 ( elected to stop chemo) HPI: Uriel Anderson is a 72 year old year old male here for follow up. Switched to insulin due to glucose being uncontrolled. Has been complaining if increasing fatigue and lower appetite. Denies any nausea and or pain at this time PAST MEDICAL HISTORY Diagnosis Date Acute bilateral deep vein thrombosis (DVT) of upper extremities (HCC) Adenocarcinoma of head of pancreas (HCC) Gastric outlet obstruction Obstructive sleep apnea Social History Tobacco Use Smoking status: Former Packs/day: 1.00 Years: 35.00 Pack years: 35.00 Types: Cigarettes Quit date: 2019 Years since quittin.4 Passive exposure: Past Smokeless tobacco: Never Vaping Use Vaping Use: Never used Substance Use Topics Alcohol use: Not Currently Drug use: Never FAMILY HISTORY Problem Relation Age of Onset Anesthesia Problems No Family History Past medical, social and family history reviewed without any changes. REVIEW OF SYSTEMS GENERAL: No weight loss, malaise or fevers. No night sweats. HEENT: Negative for headaches, No changes in hearing or vision, no nose bleeds or other nasal problems. RESPIRATORY: Negative for cough, wheezing and shortness of breath CARDIOVASCULAR: Negative for chest pain, leg swelling and palpitations GI: Negative for abdominal discomfort, blood in stools or black stools and change in bowel habits : Negative for dysuria, frequency and incontinence MUSCULOSKELETAL: Negative for joint pain or swelling, back pain, and muscle pain. SKIN: Negative for lesions, rash, and itching. HEMATOLOGY/LYMPHOLOGY Negative for prolonged bleeding, bruising easily, and swollen nodes. NEURO: Negative for numbness or tingling of hands/feet. No weakness. PHYSICAL EXAMINATION: There were no vitals taken for this visit. Wt 79.4 kg (175 lb) BMI 26.61 kg/m2 Last 3 Encounter Wt Readings: Date: Wt: 03/06/2020 79.4 kg (175 lb) 02/14/2020 84.9 kg (187 lb 2.7 oz) 02/14/2020 82.2 kg (181 lb 3.2 oz) General appearance:ECOG PERFORMANCE STATUS: 1- Restricted in physically strenuous activity. Carries out light duty. Patient in NAD. Skin: Skin color, texture, turgor normal. No rashes or lesions. Eyes: Anicteric sclera. Pupils are equally round and reactive to light. Extraocular movements are intact. Lymph Nodes: No cervical, supraclavicular, axillary or inguinal adenopathy. Oropharynx: Lips, mucosa, and tongue normal. Back: No pain to percussion. Negative SLR test Lungs clear to auscultation, No wheezing or rhonchi Heart: RRR without murmur, gallop, or rubs. Abdomen: Abdomen is soft but there is purulent drainage from around the pigtail catheter as well as the laparoscopic ports. Minimal tenderness. No rebound or guarding. Extremities: No deformities. No edema Neuro: Gait and speech normal. Reflexes normal and symmetric. Muscular strength intact. Sensation grossly intact. Rectal: Deferred : Deferred LABS: Glucose (mg/dL) Date Value 09/29/2022 377 02/11/2021 104 Potassium (mmol/L) Date Value 09/29/2022 5.0 02/11/2021 4.0 Sodium (mmol/L) Date Value 09/29/2022 134 02/11/2021 139 Chloride (mmol/L) Date Value 09/29/2022 100 02/11/2021 105 CO2 (mmol/L) Date Value 09/29/2022 25 02/11/2021 25 Creatinine (mg/dL) Date Value 09/29/2022 0.75 02/11/2021 0.49 BUN (mg/dL) Date Value 09/29/2022 19 02/11/2021 6 Anion Gap (mmol/L) Date Value 09/29/2022 9 02/11/2021 9 Calcium (mg/dL) Date Value 02/11/2021 9.5 Calcium, Total (mg/dL) Date Value 09/29/2022 10.4 Protein, Total (g/dL) Date Value 09/29/2022 7.1 02/11/2021 5.5 Albumin (g/dL) Date Value 09/29/2022 4.0 02/11/2021 2.5 Bilirubin, Total (mg/dL) Date Value 09/29/2022 1.1 02/11/2021 0.5 Alkaline Phosphatase (U/L) Date Value 09/29/2022 170 02/11/2021 84 AST (U/L) Date Value 09/29/2022 18 02/11/2021 10 ALT (U/L) Date Value 09/29/2022 23 02/11/2021 9 WBC Date Value Ref Range Status 09/29/2022 8.50 3.70 - 11.00 k/uL Final RBC Date Value Ref Range Status 09/29/2022 3.63 (L) 4.20 - 6.00 m/uL Final Hemoglobin Date Value Ref Range Status 09/29/2022 11.3 (L) 13.0 - 17.0 g/dL Final Hematocrit Date Value Ref Range Status 09/29/2022 35.6 (L) 39.0 - 51.0 % Final MCV Date Value Ref Range Status 09/29/2022 98.1 80.0 - 100.0 fL Final MCH Date Value Ref Range Status 09/29/2022 31.1 26.0 - 34.0 pg Final MCHC Date Value Ref Range Status 09/29/2022 31.7 30.5 - 36.0 g/dL Final RDW-CV Date Value Ref Range Status 09/29/2022 14.3 11.5 - 15.0 % Final Platelet Count Date Value Ref Range Status 09/29/2022 260 150 - 400 k/uL Final MPV Date Value Ref Range Status 09/29/2022 10.6 9.0 - 12.7 fL Final Abs Neut Date Value Ref Range Status 09/29/2022 6.24 1.45 - 7.50 k/uL Final Lymphocytes % Date Value Ref Range Status 09/29/2022 17.4 % Final Abs Lymph Date Value Ref Range Status 09/29/2022 1.48 1.00 - 4.00 k/uL Final Monocytes % Date Value Ref Range Status 09/29/2022 8.0 % Final Abs [place] Date Value Ref Range Status 09/29/2022 0.68 <0.87 k/uL Final Eosinophils % Date Value Ref Range Status 09/29/2022 0.7 % Final Abs Eosin Date Value Ref Range Status 09/29/2022 0.06 <0.46 k/uL Final Basophils % Date Value Ref Range Status 09/29/2022 0.2 % Final Abs Baso Date Value Ref Range Status 09/29/2022 <0.03 <0.11 k/uL Final PATH: Whipple on November: SYNOPTIC REPORT OF MANJARREZ PATHOLOGIC FINDINGS WHIPPLE, GALLBLADER, OMENTUM: PANCREAS EXOCRINE WORKSHEET Specimen: Head of pancreas Body of pancreas Duodenum Stomach Common bile duct Gallbladder Procedure: Pancreaticoduodenectomy (Whipple resection), partial pancreatectomy Tumor Site: Pancreatic head Histologic Type: Ductal adenocarcinoma (NOS) Histologic Grade: G2: Moderately differentiated Tumor Size: Greatest dimension: 8.1 cm Microscopic Tumor Extension: Tumor invades duodenal wall Tumor invades peripancreatic soft tissues Tumor invades posterior surface of pancreas Tissue Specimen Type: Pancreaticoduodenal Resection Specimen Margins for Pancreaticoduodenal Resection Specimen: Pancreatic neck/parenchymal margin uninvolved by pancreatic high-grade intraepithelial neoplasia or invasive carcinoma Uncinate (retroperitoneal/superior mesentric artery) margin cannot be assessed Bile duct margin uninvolved by high-grade intraepithelial neoplasia or invasive carcinoma Proximal margin (Gastric or Duodenal) uninvolved by high-grade dysplasia or invasive carcinoma Distal margin (Duodenal or Jejunal) uninvolved by high-grade dysplasia or invasive carcinoma Treatment Effect: No known presurgical therapy Lymphovascular Invasion: Present Perineural Invasion: Present Pathologic Stage Classification (pTNM, AJCC 8th ed) TNM Descriptors: Not applicable Primary Tumor (pT): pT3: Tumor >4 cm in greatest dimension Regional lymph nodes (pN): pN2: Metastasis in four or more regional lymph nodes Number of lymph nodes involved: 7 Number of lymph nodes examined: 27 Distant Metastasis (pM): Not applicable/Not confirmed pathologically in this case Comment: Gallbladder with chronic cholecystitis and cholesterolosis. 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 Large fluid collection in the anterior abdominal wall which visualizes to the skin surface. This collection may arise near the pancreaticojejunostomy. 2. No definite findings to suggest metastatic disease in the abdomen or pelvis. 3. Calcifications within the urinary bladder, nonspecific. A urothelial lesion is not excluded. Consider urologic consultation. CT Pancreas 01/2022: 1. Since 03/15/2021, marked increase in central mesenteric and retroperitoneal lymphadenopathy, suspicious for disease progression. 2. 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 3. Unchanged ill-defined soft tissue surrounding the origin of the celiac artery and common hepatic artery, suspicious for recurrent neoplasm. 4. Status post Whipple procedure. A pancreatic duct stent remains in place. No new pancreatic ductal dilatation. 5. Unchanged heterogeneous attenuation of the pelvic marrow, nonspecific but favored to be secondary to marrow reconversion. Continued attention on subsequent studies is suggested. If warranted, consider further assessment with nuclear medicine bone scan. CT of the chest and Abd and Pelvis 05/2022: 1. Stable CT of the chest. Unchanged appearance of left lower lobe 4 mm nodule. No new or enlarging nodules are visualized. 2. Stable appearance of prominent lymph node in the anterior mediastinum. No new bulky intrathoracic adenopathy is seen. 3. Stable findings of prior granulomatous disease 1. Mesenteric and retroperitoneal lymphadenopathy as noted above. The majority of the visualized lymph nodes appear stable, however there is slight interval increase in size of an aortocaval node. Recommend continued follow-up. 2. Stable ill-defined soft tissue density/fat stranding in the origin of the celiac artery which may be on the basis of postsurgical change versus recurrent neoplasm. 3. Stable postsurgical changes in keeping with prior Whipple procedure. No pancreatic ductal dilation or recurrent mass is seen. 4. Previously described ill-defined soft tissue in the ellen hepatis is not well seen on the current study. CT Scan of the Chest and Abdomen and Pelvis 06/2022: 1. New reticulonodular opacities in the right lung, with an upper lung field predominance, most likely infectious/inflammatory in etiology. Consider follow-up to complete resolution. 2. Other subcentimeter nodular opacities measuring up to 7-8 mm, stable since 05/25/22 1. No interval change since 05/25/22. 2. Multiple mesenteric and peritoneal masses/lymphadenopathy, stable CT Scan of the Chest and Abdomen and Pelvis 10/2022: 1. Since 07/27/2022, decrease in right upper lobe tree-in-bud opacities, compatible with resolving infection/inflammation. 2. Additional nonspecific noncalcified pulmonary nodules measuring up to 0.7 cm are unchanged. 3. Unchanged 0.9 cm retrosternal nodule/lymph node. No progressive lymphadenopathy. 1. Since 07/27/2022, unchanged diffuse retroperitoneal and central mesenteric lymphadenopathy. Unchanged metastatic deposit along the anterior right kidney. 2. New geographic regions of hypodensity along the inferior margin of the left hepatic lobe, likely evolving sites of steatosis. Attention on subsequent studies is suggested. Assessment and Plan: Uriel Anderson is a 72 year old year old male here for follow up. T3, N2, M0, pancreatic adenocarcinoma. Patient with postoperative complications which precluded adjuvant chemo and did have additional admissions and procedures lastly a stent in the PJ stenosis in 04/2021. His CT, 01/2022 with sandy progression and he has recurrence. His initial disease state was very high risk. Post 4 cycles of therapy and with stable disease on CT 05/2022. Discussed the results and he would like some time off chemo. Reviewed follow up imaging 10/2022 and still stable but he is more symptomatic and rising CA 199 and we discussed resuming theroay again and they agreed Restart [place] and Abraxane again next week. Continue nutrition follow up Anemia- Monitor- Improved Resume chemo next week Thank you for the kind referral. If there are any questions and or concerns please do not hesitate to contact me at [phone]. Grace Bess MD Hematology/Medical Oncology [facility] CC: Giovanni Hamlin MD I spent a total of 30 minutes on the date of the service which included preparing to see the patient, [id number] patient care, completing clinical documentation, obtaining and/or reviewing separately obtained history, performing a medically appropriate examination, counseling and educating the patient/family/caregiver, ordering medications, tests, or procedures, and independently interpreting results (not separately reported). documented in this encounter [facility] 11-07-2022 Miscellaneous Notes Pt notified of results. Josephine Salomon RN ----- Message from Grace Bess MD sent at 11/06/2022 11:30 AM EDT ----- Call with stable CT scan and no evidence of progressive disease documented in this encounter [facility] 11-03-[address] [facility] 11-03-[address] [facility] 11-03-[address] [facility] 11-03-2022 History of Present illness Narrative Summary: IRB# [id number] Informed Consent CASE [id number] (IRB [id number]): Tissue and Body Fluid Analysis from Patients with Cancer and Other Risk- Associated Lesions Patient seen in clinic for informed consent of the above mentioned protocol. Patient agrees to participate in the above mentioned research study. The patient has signed a copy of the informed consent. Patient has contact information for the study team and Dr. Grace Bess M.D. See consent note in Epic. Pooja Garcia, MSN, RN Clinical Research Nurse documented in this encounter [facility] 09-29-2022 History of Present illness Narrative PATIENT NAME: Uriel Anderson [facility] NO.: [id number] ATTENDING PHYSICIAN: Grace Bess MD DATE OF SERVICE: September 29, 2022 Some of the elements of this note have been copied from my previous progress note dated 08/02/2022. All the information has been reviewed carefully. Dear Dr. Hamlin here is an update on a follow up visit on male Uriel Anderson at the clinic September 29, 2022 Diagnosis: 1. T3, N2, M0 pancreatic cancer. Tumor is 8.1 cm, moderately differentiated adenocarcinoma, tumor invades duodenal wall, peripancreatic soft tissue. Margins were negative. Lymphovascular space invasion was present, perineural invasion was present. Metastatic disease in 7 of 27 lymph nodes. 2. NGS Tissue Based: KRAS [id number], EGFR amplified and RAC 1 Amplified , GIBRAN and TMB low, Liquid Based 03/2022: KRAS, APC and RON mutation as well. Treatment History: Germline Testing: Negative 1. Diagnostic laparoscopy, pancreaticoduodenectomy, hepaticojejunostomy, pancreatico jejunostomy and gastrojejunostomy on December 04, 2019. Operative findings very bulky pancreatic head mass with significant adenopathy. Large SMA lymph node which appeared to be right at the onset of margin and was completed dissected off the SMA. 2. Post op complication and did not receive adjuvant chemo 3. 04/2021: Successful sphincterotomy and dilation of pancreaticojejunostomy stricture and placement of an 8mm covered stent 4. CT 01/2022- recurrence 5. [place] and Abraxane 03/16/2022-05/11/2022 ( elected to stop chemo) HPI: Uriel Anderson is a 72 year old year old male here for follow up. He states that the Mobic really helped with his shoulder and joint pains and he is doing well. Eating well and denies any fevers and or chills. Denies any abdominal pain and weight has been stable PAST MEDICAL HISTORY Diagnosis Date Acute bilateral deep vein thrombosis (DVT) of upper extremities (HCC) Adenocarcinoma of head of pancreas (HCC) Gastric outlet obstruction Obstructive sleep apnea Social History Tobacco Use Smoking status: Former Packs/day: 1.00 Years: 35.00 Pack years: 35.00 Types: Cigarettes Quit date: 2018 Years since quittin.3 Passive exposure: Past Smokeless tobacco: Never Vaping Use Vaping Use: Never used Substance Use Topics Alcohol use: Not Currently Drug use: Never FAMILY HISTORY Problem Relation Age of Onset Anesthesia Problems No Family History Past medical, social and family history reviewed without any changes. REVIEW OF SYSTEMS GENERAL: No weight loss, malaise or fevers. No night sweats. HEENT: Negative for headaches, No changes in hearing or vision, no nose bleeds or other nasal problems. RESPIRATORY: Negative for cough, wheezing and shortness of breath CARDIOVASCULAR: Negative for chest pain, leg swelling and palpitations GI: Negative for abdominal discomfort, blood in stools or black stools and change in bowel habits : Negative for dysuria, frequency and incontinence MUSCULOSKELETAL: Negative for joint pain or swelling, back pain, and muscle pain. SKIN: Negative for lesions, rash, and itching. HEMATOLOGY/LYMPHOLOGY Negative for prolonged bleeding, bruising easily, and swollen nodes. NEURO: Negative for numbness or tingling of hands/feet. No weakness. PHYSICAL EXAMINATION: BP 140/74 Pulse 69 Temp (Src) 97.6 (Temporal) Resp 16 Ht 5' 6.85 (1.70m) Wt 199 lb (90.3kg) SpO2 97% BMI 31.31 kg/(m^2). Wt 79.4 kg (175 lb) BMI 26.61 kg/m2 Last 3 Encounter Wt Readings: Date: Wt: 03/06/2020 79.4 kg (175 lb) 02/14/2020 84.9 kg (187 lb 2.7 oz) 02/14/2020 82.2 kg (181 lb 3.2 oz) General appearance:ECOG PERFORMANCE STATUS: 1- Restricted in physically strenuous activity. Carries out light duty. Patient in NAD. Skin: Skin color, texture, turgor normal. No rashes or lesions. Eyes: Anicteric sclera. Pupils are equally round and reactive to light. Extraocular movements are intact. Lymph Nodes: No cervical, supraclavicular, axillary or inguinal adenopathy. Oropharynx: Lips, mucosa, and tongue normal. Back: No pain to percussion. Negative SLR test Lungs clear to auscultation, No wheezing or rhonchi Heart: RRR without murmur, gallop, or rubs. Abdomen: Abdomen is soft but there is purulent drainage from around the pigtail catheter as well as the laparoscopic ports. Minimal tenderness. No rebound or guarding. Extremities: No deformities. No edema Neuro: Gait and speech normal. Reflexes normal and symmetric. Muscular strength intact. Sensation grossly intact. Rectal: Deferred : Deferred LABS: Glucose (mg/dL) Date Value 08/02/2022 151 02/11/2021 104 Potassium (mmol/L) Date Value 08/02/2022 4.7 02/11/2021 4.0 Sodium (mmol/L) Date Value 08/02/2022 137 02/11/2021 139 Chloride (mmol/L) Date Value 08/02/2022 105 02/11/2021 105 CO2 (mmol/L) Date Value 08/02/2022 24 02/11/2021 25 Creatinine (mg/dL) Date Value 08/02/2022 0.81 02/11/2021 0.49 BUN (mg/dL) Date Value 08/02/2022 18 02/11/2021 6 Anion Gap (mmol/L) Date Value 08/02/2022 8 02/11/2021 9 Calcium (mg/dL) Date Value 02/11/2021 9.5 Calcium, Total (mg/dL) Date Value 08/02/2022 10.6 Protein, Total (g/dL) Date Value 08/02/2022 7.3 02/11/2021 5.5 Albumin (g/dL) Date Value 08/02/2022 4.2 02/11/2021 2.5 Bilirubin, Total (mg/dL) Date Value 08/02/2022 1.0 02/11/2021 0.5 Alkaline Phosphatase (U/L) Date Value 08/02/2022 140 02/11/2021 84 AST (U/L) Date Value 08/02/2022 20 02/11/2021 10 ALT (U/L) Date Value 08/02/2022 17 02/11/2021 9 WBC Date Value Ref Range Status 08/02/2022 9.44 3.70 - 11.00 k/uL Final RBC Date Value Ref Range Status 08/02/2022 3.67 (L) 4.20 - 6.00 m/uL Final Hemoglobin Date Value Ref Range Status 08/02/2022 11.5 (L) 13.0 - 17.0 g/dL Final Hematocrit Date Value Ref Range Status 08/02/2022 35.3 (L) 39.0 - 51.0 % Final MCV Date Value Ref Range Status 08/02/2022 96.2 80.0 - 100.0 fL Final MCH Date Value Ref Range Status 08/02/2022 31.3 26.0 - 34.0 pg Final MCHC Date Value Ref Range Status 08/02/2022 32.6 30.5 - 36.0 g/dL Final RDW-CV Date Value Ref Range Status 08/02/2022 15.3 (H) 11.5 - 15.0 % Final Platelet Count Date Value Ref Range Status 08/02/2022 257 150 - 400 k/uL Final MPV Date Value Ref Range Status 08/02/2022 10.2 9.0 - 12.7 fL Final Abs Neut Date Value Ref Range Status 08/02/2022 6.60 1.45 - 7.50 k/uL Final Lymphocytes % Date Value Ref Range Status 08/02/2022 20.2 % Final Abs Lymph Date Value Ref Range Status 08/02/2022 1.91 1.00 - 4.00 k/uL Final Monocytes % Date Value Ref Range Status 08/02/2022 8.6 % Final Abs [place] Date Value Ref Range Status 08/02/2022 0.81 <0.87 k/uL Final Eosinophils % Date Value Ref Range Status 08/02/2022 0.7 % Final Abs Eosin Date Value Ref Range Status 08/02/2022 0.07 <0.46 k/uL Final Basophils % Date Value Ref Range Status 08/02/2022 0.2 % Final Abs Baso Date Value Ref Range Status 08/02/2022 <0.03 <0.11 k/uL Final PATH: Whipple on November: SYNOPTIC REPORT OF MANJARREZ PATHOLOGIC FINDINGS TAHMINA, GALLBLADER, OMENTUM: PANCREAS EXOCRINE WORKSHEET Specimen: Head of pancreas Body of pancreas Duodenum Stomach Common bile duct Gallbladder Procedure: Pancreaticoduodenectomy (Whipple resection), partial pancreatectomy Tumor Site: Pancreatic head Histologic Type: Ductal adenocarcinoma (NOS) Histologic Grade: G2: Moderately differentiated Tumor Size: Greatest dimension: 8.1 cm Microscopic Tumor Extension: Tumor invades duodenal wall Tumor invades peripancreatic soft tissues Tumor invades posterior surface of pancreas Tissue Specimen Type: Pancreaticoduodenal Resection Specimen Margins for Pancreaticoduodenal Resection Specimen: Pancreatic neck/parenchymal margin uninvolved by pancreatic high-grade intraepithelial neoplasia or invasive carcinoma Uncinate (retroperitoneal/superior mesentric artery) margin cannot be assessed Bile duct margin uninvolved by high-grade intraepithelial neoplasia or invasive carcinoma Proximal margin (Gastric or Duodenal) uninvolved by high-grade dysplasia or invasive carcinoma Distal margin (Duodenal or Jejunal) uninvolved by high-grade dysplasia or invasive carcinoma Treatment Effect: No known presurgical therapy Lymphovascular Invasion: Present Perineural Invasion: Present Pathologic Stage Classification (pTNM, AJCC 8th ed) TNM Descriptors: Not applicable Primary Tumor (pT): pT3: Tumor >4 cm in greatest dimension Regional lymph nodes (pN): pN2: Metastasis in four or more regional lymph nodes Number of lymph nodes involved: 7 Number of lymph nodes examined: 27 Distant Metastasis (pM): Not applicable/Not confirmed pathologically in this case Comment: Gallbladder with chronic cholecystitis and cholesterolosis. 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 Large fluid collection in the anterior abdominal wall which visualizes to the skin surface. This collection may arise near the pancreaticojejunostomy. 2. No definite findings to suggest metastatic disease in the abdomen or pelvis. 3. Calcifications within the urinary bladder, nonspecific. A urothelial lesion is not excluded. Consider urologic consultation. CT Pancreas 01/2022: 1. Since 03/15/2021, marked increase in central mesenteric and retroperitoneal lymphadenopathy, suspicious for disease progression. 2. 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 3. Unchanged ill-defined soft tissue surrounding the origin of the celiac artery and common hepatic artery, suspicious for recurrent neoplasm. 4. Status post Whipple procedure. A pancreatic duct stent remains in place. No new pancreatic ductal dilatation. 5. Unchanged heterogeneous attenuation of the pelvic marrow, nonspecific but favored to be secondary to marrow reconversion. Continued attention on subsequent studies is suggested. If warranted, consider further assessment with nuclear medicine bone scan. CT of the chest and Abd and Pelvis 05/2022: 1. Stable CT of the chest. Unchanged appearance of left lower lobe 4 mm nodule. No new or enlarging nodules are visualized. 2. Stable appearance of prominent lymph node in the anterior mediastinum. No new bulky intrathoracic adenopathy is seen. 3. Stable findings of prior granulomatous disease 1. Mesenteric and retroperitoneal lymphadenopathy as noted above. The majority of the visualized lymph nodes appear stable, however there is slight interval increase in size of an aortocaval node. Recommend continued follow-up. 2. Stable ill-defined soft tissue density/fat stranding in the origin of the celiac artery which may be on the basis of postsurgical change versus recurrent neoplasm. 3. Stable postsurgical changes in keeping with prior Whipple procedure. No pancreatic ductal dilation or recurrent mass is seen. 4. Previously described ill-defined soft tissue in the ellen hepatis is not well seen on the current study. CT Scan of the Chest and Abdomen and Pelvis 06/2022: 1. New reticulonodular opacities in the right lung, with an upper lung field predominance, most likely infectious/inflammatory in etiology. Consider follow-up to complete resolution. 2. Other subcentimeter nodular opacities measuring up to 7-8 mm, stable since 05/25/22 1. No interval change since 05/25/22. 2. Multiple mesenteric and peritoneal masses/lymphadenopathy, stable Assessment and Plan: Uriel Anderson is a 72 year old year old male here for follow up. T3, N2, M0, pancreatic adenocarcinoma. Patient with postoperative complications which precluded adjuvant chemo and did have additional admissions and procedures lastly a stent in the PJ stenosis in 04/2021. His CT, 01/2022 with sandy progression and he has recurrence. His initial disease state was very high risk. Post 4 cycles of therapy and with stable disease on CT 05/2022. Discussed the results and he would like some time off chemo. Reviewed follow up imaging 07/2022 and still stable and he would like a longer time off chemo as he is doing very well. Continue nutrition follow up Anemia- Monitor- Improved Mobic for OA- Will take with PPI and that has helped See back in 6 weeks and will plan on repeating imaging at that time Thank you for the kind referral. If there are any questions and or concerns please do not hesitate to contact me at [phone]. Grace Bess MD Hematology/Medical Oncology [facility] CC: Giovanni Hamlin MD I spent a total of 30 minutes on the date of the service which included preparing to see the patient, [id number] patient care, completing clinical documentation, obtaining and/or reviewing separately obtained history, performing a medically appropriate examination, counseling and educating the patient/family/caregiver, ordering medications, tests, or procedures, and independently interpreting results (not separately reported). documented in this encounter [facility] 08-02-2022 History of Present illness Narrative PATIENT NAME: Uriel Anderson [facility] NO.: [id number] ATTENDING PHYSICIAN: Grace Bess MD DATE OF SERVICE: August 02, 2022 Some of the elements of this note have been copied from my previous progress note dated 06/29/2022. All the information has been reviewed carefully. Dear Dr. Hamlin here is an update on a follow up visit on male Uriel Anderson at the clinic August 02, 2022 Diagnosis: 1. T3, and 2, M0 pancreatic cancer. Tumor is 8.1 cm, moderately differentiated adenocarcinoma, tumor invades duodenal wall, peripancreatic soft tissue. Margins were negative. Lymphovascular space invasion was present, perineural invasion was present. Metastatic disease in 7 of 27 lymph nodes. 2. NGS Tissue Based: KRAS [id number], EGFR amplified and RAC 1 Amplified , GIBRAN and TMB low, Liquid Based 03/2022: KRAS, APC and RON mutation as well. Treatment History: 3. Germline Testing: Negative 1. Diagnostic laparoscopy, pancreaticoduodenectomy, hepaticojejunostomy, pancreatico jejunostomy and gastrojejunostomy on December 04, 2019. Operative findings very bulky pancreatic head mass with significant adenopathy. Large SMA lymph node which appeared to be right at the onset of margin and was completed dissected off the SMA. 2. Post op complication and did not receive adjuvant chemo 3. 04/2021: Successful sphincterotomy and dilation of pancreaticojejunostomy stricture and placement of an 8mm covered stent 4. CT 01/2022- recurrence 5. [place] and Abraxane 03/16/2022-05/11/2022 ( elected to stop chemo) HPI: Uriel Anderson is a 72 year old year old male here for follow up. Does have joint stiffness and wants meds for that, otherwise has been doing well and eating well and denies any abdominal pain and or diarrhea PAST MEDICAL HISTORY Diagnosis Date Acute bilateral deep vein thrombosis (DVT) of upper extremities (HCC) Adenocarcinoma of head of pancreas (HCC) Gastric outlet obstruction Obstructive sleep apnea Social History Tobacco Use Smoking status: Former Packs/day: 1.00 Years: 35.00 Pack years: 35.00 Types: Cigarettes Quit date: 2018 Years since quittin.2 Passive exposure: Past Smokeless tobacco: Never Vaping Use Vaping Use: Never used Substance Use Topics Alcohol use: Not Currently Drug use: Never FAMILY HISTORY Problem Relation Age of Onset Anesthesia Problems No Family History Past medical, social and family history reviewed without any changes. REVIEW OF SYSTEMS GENERAL: No weight loss, malaise or fevers. No night sweats. HEENT: Negative for headaches, No changes in hearing or vision, no nose bleeds or other nasal problems. RESPIRATORY: Negative for cough, wheezing and shortness of breath CARDIOVASCULAR: Negative for chest pain, leg swelling and palpitations GI: Negative for abdominal discomfort, blood in stools or black stools and change in bowel habits : Negative for dysuria, frequency and incontinence MUSCULOSKELETAL: Negative for joint pain or swelling, back pain, and muscle pain. SKIN: Negative for lesions, rash, and itching. HEMATOLOGY/LYMPHOLOGY Negative for prolonged bleeding, bruising easily, and swollen nodes. NEURO: Negative for numbness or tingling of hands/feet. No weakness. PHYSICAL EXAMINATION: BP 145/74 Pulse 75 Temp (Src) 97.6 (Temporal) Resp 16 Ht 5' 6.85 (1.70m) Wt 200 lb 3.2 oz (90.8kg) SpO2 99% BMI 31.50 kg/(m^2). Wt 79.4 kg (175 lb) BMI 26.61 kg/m2 Last 3 Encounter Wt Readings: Date: Wt: 03/06/2020 79.4 kg (175 lb) 02/14/2020 84.9 kg (187 lb 2.7 oz) 02/14/2020 82.2 kg (181 lb 3.2 oz) General appearance:ECOG PERFORMANCE STATUS: 1- Restricted in physically strenuous activity. Carries out light duty. Patient in NAD. Skin: Skin color, texture, turgor normal. No rashes or lesions. Eyes: Anicteric sclera. Pupils are equally round and reactive to light. Extraocular movements are intact. Lymph Nodes: No cervical, supraclavicular, axillary or inguinal adenopathy. Oropharynx: Lips, mucosa, and tongue normal. Back: No pain to percussion. Negative SLR test Lungs clear to auscultation, No wheezing or rhonchi Heart: RRR without murmur, gallop, or rubs. Abdomen: Abdomen is soft but there is purulent drainage from around the pigtail catheter as well as the laparoscopic ports. Minimal tenderness. No rebound or guarding. Extremities: No deformities. No edema Neuro: Gait and speech normal. Reflexes normal and symmetric. Muscular strength intact. Sensation grossly intact. Rectal: Deferred : Deferred LABS: Glucose (mg/dL) Date Value 06/29/2022 189 02/11/2021 104 Potassium (mmol/L) Date Value 06/29/2022 4.7 02/11/2021 4.0 Sodium (mmol/L) Date Value 06/29/2022 133 02/11/2021 139 Chloride (mmol/L) Date Value 06/29/2022 100 02/11/2021 105 CO2 (mmol/L) Date Value 06/29/2022 25 02/11/2021 25 Creatinine (mg/dL) Date Value 06/29/2022 0.83 02/11/2021 0.49 BUN (mg/dL) Date Value 06/29/2022 21 02/11/2021 6 Anion Gap (mmol/L) Date Value 06/29/2022 8 02/11/2021 9 Calcium (mg/dL) Date Value 02/11/2021 9.5 Calcium, Total (mg/dL) Date Value 06/29/2022 10.6 Protein, Total (g/dL) Date Value 06/29/2022 7.6 02/11/2021 5.5 Albumin (g/dL) Date Value 06/29/2022 4.2 02/11/2021 2.5 Bilirubin, Total (mg/dL) Date Value 06/29/2022 0.9 02/11/2021 0.5 Alkaline Phosphatase (U/L) Date Value 06/29/2022 146 02/11/2021 84 AST (U/L) Date Value 06/29/2022 20 02/11/2021 10 ALT (U/L) Date Value 06/29/2022 21 02/11/2021 9 WBC Date Value Ref Range Status 08/02/2022 9.44 3.70 - 11.00 k/uL Final RBC Date Value Ref Range Status 08/02/2022 3.67 (L) 4.20 - 6.00 m/uL Final Hemoglobin Date Value Ref Range Status 08/02/2022 11.5 (L) 13.0 - 17.0 g/dL Final Hematocrit Date Value Ref Range Status 08/02/2022 35.3 (L) 39.0 - 51.0 % Final MCV Date Value Ref Range Status 08/02/2022 96.2 80.0 - 100.0 fL Final MCH Date Value Ref Range Status 08/02/2022 31.3 26.0 - 34.0 pg Final MCHC Date Value Ref Range Status 08/02/2022 32.6 30.5 - 36.0 g/dL Final RDW-CV Date Value Ref Range Status 08/02/2022 15.3 (H) 11.5 - 15.0 % Final Platelet Count Date Value Ref Range Status 08/02/2022 257 150 - 400 k/uL Final MPV Date Value Ref Range Status 08/02/2022 10.2 9.0 - 12.7 fL Final Abs Neut Date Value Ref Range Status 08/02/2022 6.60 1.45 - 7.50 k/uL Final Lymphocytes % Date Value Ref Range Status 08/02/2022 20.2 % Final Abs Lymph Date Value Ref Range Status 08/02/2022 1.91 1.00 - 4.00 k/uL Final Monocytes % Date Value Ref Range Status 08/02/2022 8.6 % Final Abs [place] Date Value Ref Range Status 08/02/2022 0.81 <0.87 k/uL Final Eosinophils % Date Value Ref Range Status 08/02/2022 0.7 % Final Abs Eosin Date Value Ref Range Status 08/02/2022 0.07 <0.46 k/uL Final Basophils % Date Value Ref Range Status 08/02/2022 0.2 % Final Abs Baso Date Value Ref Range Status 08/02/2022 <0.03 <0.11 k/uL Final PATH: Whipple on November: SYNOPTIC REPORT OF MANJARREZ PATHOLOGIC FINDINGS WHIPPLE, GALLBLADER, OMENTUM: PANCREAS EXOCRINE WORKSHEET Specimen: Head of pancreas Body of pancreas Duodenum Stomach Common bile duct Gallbladder Procedure: Pancreaticoduodenectomy (Whipple resection), partial pancreatectomy Tumor Site: Pancreatic head Histologic Type: Ductal adenocarcinoma (NOS) Histologic Grade: G2: Moderately differentiated Tumor Size: Greatest dimension: 8.1 cm Microscopic Tumor Extension: Tumor invades duodenal wall Tumor invades peripancreatic soft tissues Tumor invades posterior surface of pancreas Tissue Specimen Type: Pancreaticoduodenal Resection Specimen Margins for Pancreaticoduodenal Resection Specimen: Pancreatic neck/parenchymal margin uninvolved by pancreatic high-grade intraepithelial neoplasia or invasive carcinoma Uncinate (retroperitoneal/superior mesentric artery) margin cannot be assessed Bile duct margin uninvolved by high-grade intraepithelial neoplasia or invasive carcinoma Proximal margin (Gastric or Duodenal) uninvolved by high-grade dysplasia or invasive carcinoma Distal margin (Duodenal or Jejunal) uninvolved by high-grade dysplasia or invasive carcinoma Treatment Effect: No known presurgical therapy Lymphovascular Invasion: Present Perineural Invasion: Present Pathologic Stage Classification (pTNM, AJCC 8th ed) TNM Descriptors: Not applicable Primary Tumor (pT): pT3: Tumor >4 cm in greatest dimension Regional lymph nodes (pN): pN2: Metastasis in four or more regional lymph nodes Number of lymph nodes involved: 7 Number of lymph nodes examined: 27 Distant Metastasis (pM): Not applicable/Not confirmed pathologically in this case Comment: Gallbladder with chronic cholecystitis and cholesterolosis. 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 Large fluid collection in the anterior abdominal wall which visualizes to the skin surface. This collection may arise near the pancreaticojejunostomy. 2. No definite findings to suggest metastatic disease in the abdomen or pelvis. 3. Calcifications within the urinary bladder, nonspecific. A urothelial lesion is not excluded. Consider urologic consultation. CT Pancreas 01/2022: 1. Since 03/15/2021, marked increase in central mesenteric and retroperitoneal lymphadenopathy, suspicious for disease progression. 2. 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 3. Unchanged ill-defined soft tissue surrounding the origin of the celiac artery and common hepatic artery, suspicious for recurrent neoplasm. 4. Status post Whipple procedure. A pancreatic duct stent remains in place. No new pancreatic ductal dilatation. 5. Unchanged heterogeneous attenuation of the pelvic marrow, nonspecific but favored to be secondary to marrow reconversion. Continued attention on subsequent studies is suggested. If warranted, consider further assessment with nuclear medicine bone scan. CT of the chest and Abd and Pelvis 05/2022: 1. Stable CT of the chest. Unchanged appearance of left lower lobe 4 mm nodule. No new or enlarging nodules are visualized. 2. Stable appearance of prominent lymph node in the anterior mediastinum. No new bulky intrathoracic adenopathy is seen. 3. Stable findings of prior granulomatous disease 1. Mesenteric and retroperitoneal lymphadenopathy as noted above. The majority of the visualized lymph nodes appear stable, however there is slight interval increase in size of an aortocaval node. Recommend continued follow-up. 2. Stable ill-defined soft tissue density/fat stranding in the origin of the celiac artery which may be on the basis of postsurgical change versus recurrent neoplasm. 3. Stable postsurgical changes in keeping with prior Whipple procedure. No pancreatic ductal dilation or recurrent mass is seen. 4. Previously described ill-defined soft tissue in the ellen hepatis is not well seen on the current study. CT Scan of the Chest and Abdomen and Pelvis 06/2022: 1. New reticulonodular opacities in the right lung, with an upper lung field predominance, most likely infectious/inflammatory in etiology. Consider follow-up to complete resolution. 2. Other subcentimeter nodular opacities measuring up to 7-8 mm, stable since 05/25/22 1. No interval change since 05/25/22. 2. Multiple mesenteric and peritoneal masses/lymphadenopathy, stable Assessment and Plan: Uriel Anderson is a 72 year old year old male here for follow up. T3, N2, M0, pancreatic adenocarcinoma. Patient with postoperative complications which precluded adjuvant chemo and did have additional admissions and procedures lastly a stent in the PJ stenosis in 04/2021. His CT, 01/2022 with sandy progression and he has recurrence. His initial disease state was very high risk. Post 4 cycles of therapy and with stable disease on CT 05/2022. Discussed the results and he would like some time off chemo. Reviewed follow up imaging 07/2022 and still stable and he would like a longer time off chemo as he is doing very well. Continue nutrition follow up Anemia- Monitor- Improved Mobic for OA- Will take with PPI See back in 6 weeks Thank you for the kind referral. If there are any questions and or concerns please do not hesitate to contact me at [phone]. Grace Bess MD Hematology/Medical Oncology [facility] CC: Giovanni Hamlin MD I spent a total of 30 minutes on the date of the service which included preparing to see the patient, [id number] patient care, completing clinical documentation, obtaining and/or reviewing separately obtained history, performing a medically appropriate examination, counseling and educating the patient/family/caregiver, ordering medications, tests, or procedures, and independently interpreting results (not separately reported). documented in this encounter [facility] 06-29-2022 History of Present illness Narrative PATIENT NAME: Uriel Anderson CLINIC NO.: [id number] ATTENDING PHYSICIAN: Grace Bess MD DATE OF SERVICE: June 29, 2022 Some of the elements of this note have been copied from my previous progress note dated 06/01/2022. All the information has been reviewed carefully. Dear Dr. Hamlin here is an update on a follow up visit on male Uriel Anderson at the clinic June 29, 2022 Diagnosis: 1. T3, and 2, M0 pancreatic cancer. Tumor is 8.1 cm, moderately differentiated adenocarcinoma, tumor invades duodenal wall, peripancreatic soft tissue. Margins were negative. Lymphovascular space invasion was present, perineural invasion was present. Metastatic disease in 7 of 27 lymph nodes. 2. NGS Tissue Based: KRAS [id number], EGFR amplified and RAC 1 Amplified , GIBRAN and TMB low, Liquid Based 03/2022: KRAS, APC and RON mutation as well. Treatment History: 3. Germline Testing: Negative 1. Diagnostic laparoscopy, pancreaticoduodenectomy, hepaticojejunostomy, pancreatico jejunostomy and gastrojejunostomy on December 04, 2019. Operative findings very bulky pancreatic head mass with significant adenopathy. Large SMA lymph node which appeared to be right at the onset of margin and was completed dissected off the SMA. 2. Post op complication and did not receive adjuvant chemo 3. 04/2021: Successful sphincterotomy and dilation of pancreaticojejunostomy stricture and placement of an 8mm covered stent 4. CT 01/2022- recurrence 5. [place] and Abraxane 03/16/2022 HPI: Uriel Anderson is a 72 year old year old male here for follow up. Doing well and eating well and fatigue less off the chemo and denies any diarrhea. PAST MEDICAL HISTORY Diagnosis Date Acute bilateral deep vein thrombosis (DVT) of upper extremities (HCC) Adenocarcinoma of head of pancreas (HCC) Gastric outlet obstruction Obstructive sleep apnea Social History Tobacco Use Smoking status: Former Packs/day: 1.00 Years: 35.00 Pack years: 35.00 Types: Cigarettes Quit date: 2018 Years since quittin.1 Passive exposure: Past Smokeless tobacco: Never Vaping Use Vaping Use: Never used Substance Use Topics Alcohol use: Not Currently Drug use: Never FAMILY HISTORY Problem Relation Age of Onset Anesthesia Problems No Family History Past medical, social and family history reviewed without any changes. REVIEW OF SYSTEMS GENERAL: No weight loss, malaise or fevers. No night sweats. HEENT: Negative for headaches, No changes in hearing or vision, no nose bleeds or other nasal problems. RESPIRATORY: Negative for cough, wheezing and shortness of breath CARDIOVASCULAR: Negative for chest pain, leg swelling and palpitations GI: Negative for abdominal discomfort, blood in stools or black stools and change in bowel habits : Negative for dysuria, frequency and incontinence MUSCULOSKELETAL: Negative for joint pain or swelling, back pain, and muscle pain. SKIN: Negative for lesions, rash, and itching. HEMATOLOGY/LYMPHOLOGY Negative for prolonged bleeding, bruising easily, and swollen nodes. NEURO: Negative for numbness or tingling of hands/feet. No weakness. PHYSICAL EXAMINATION: BP 137/77 Pulse 81 Temp (Src) 97.6 (Temporal) Resp 18 Ht 5' 6.85 (1.70m) Wt 197 lb 3.2 oz (89.4kg) SpO2 99% BMI 31.02 kg/(m^2). Wt 79.4 kg (175 lb) BMI 26.61 kg/m2 Last 3 Encounter Wt Readings: Date: Wt: 03/06/2020 79.4 kg (175 lb) 02/14/2020 84.9 kg (187 lb 2.7 oz) 02/14/2020 82.2 kg (181 lb 3.2 oz) General appearance:ECOG PERFORMANCE STATUS: 1- Restricted in physically strenuous activity. Carries out light duty. Patient in NAD. Skin: Skin color, texture, turgor normal. No rashes or lesions. Eyes: Anicteric sclera. Pupils are equally round and reactive to light. Extraocular movements are intact. Lymph Nodes: No cervical, supraclavicular, axillary or inguinal adenopathy. Oropharynx: Lips, mucosa, and tongue normal. Back: No pain to percussion. Negative SLR test Lungs clear to auscultation, No wheezing or rhonchi Heart: RRR without murmur, gallop, or rubs. Abdomen: Abdomen is soft but there is purulent drainage from around the pigtail catheter as well as the laparoscopic ports. Minimal tenderness. No rebound or guarding. Extremities: No deformities. No edema Neuro: Gait and speech normal. Reflexes normal and symmetric. Muscular strength intact. Sensation grossly intact. Rectal: Deferred : Deferred LABS: Glucose (mg/dL) Date Value 06/29/2022 189 02/11/2021 104 Potassium (mmol/L) Date Value 06/29/2022 4.7 02/11/2021 4.0 Sodium (mmol/L) Date Value 06/29/2022 133 02/11/2021 139 Chloride (mmol/L) Date Value 06/29/2022 100 02/11/2021 105 CO2 (mmol/L) Date Value 06/29/2022 25 02/11/2021 25 Creatinine (mg/dL) Date Value 06/29/2022 0.83 02/11/2021 0.49 BUN (mg/dL) Date Value 06/29/2022 21 02/11/2021 6 Anion Gap (mmol/L) Date Value 06/29/2022 8 02/11/2021 9 Calcium (mg/dL) Date Value 02/11/2021 9.5 Calcium, Total (mg/dL) Date Value 06/29/2022 10.6 Protein, Total (g/dL) Date Value 06/29/2022 7.6 02/11/2021 5.5 Albumin (g/dL) Date Value 06/29/2022 4.2 02/11/2021 2.5 Bilirubin, Total (mg/dL) Date Value 06/29/2022 0.9 02/11/2021 0.5 Alkaline Phosphatase (U/L) Date Value 06/29/2022 146 02/11/2021 84 AST (U/L) Date Value 06/29/2022 20 02/11/2021 10 ALT (U/L) Date Value 06/29/2022 21 02/11/2021 9 WBC Date Value Ref Range Status 06/29/2022 10.30 3.70 - 11.00 k/uL Final RBC Date Value Ref Range Status 06/29/2022 3.83 (L) 4.20 - 6.00 m/uL Final Hemoglobin Date Value Ref Range Status 06/29/2022 11.7 (L) 13.0 - 17.0 g/dL Final Hematocrit Date Value Ref Range Status 06/29/2022 36.8 (L) 39.0 - 51.0 % Final MCV Date Value Ref Range Status 06/29/2022 96.1 80.0 - 100.0 fL Final MCH Date Value Ref Range Status 06/29/2022 30.5 26.0 - 34.0 pg Final MCHC Date Value Ref Range Status 06/29/2022 31.8 30.5 - 36.0 g/dL Final RDW-CV Date Value Ref Range Status 06/29/2022 15.3 (H) 11.5 - 15.0 % Final Platelet Count Date Value Ref Range Status 06/29/2022 288 150 - 400 k/uL Final MPV Date Value Ref Range Status 06/29/2022 9.8 9.0 - 12.7 fL Final Abs Neut Date Value Ref Range Status 06/29/2022 6.95 1.45 - 7.50 k/uL Final Lymph% Date Value Ref Range Status 06/29/2022 20.9 % Final Abs Lymph Date Value Ref Range Status 06/29/2022 2.15 1.00 - 4.00 k/uL Final [place]% Date Value Ref Range Status 06/29/2022 10.2 % Final Abs [place] Date Value Ref Range Status 06/29/2022 1.05 (H) <0.87 k/uL Final Eosin% Date Value Ref Range Status 06/29/2022 0.9 % Final Abs Eosin Date Value Ref Range Status 06/29/2022 0.09 <0.46 k/uL Final Baso% Date Value Ref Range Status 06/29/2022 0.3 % Final Abs Baso Date Value Ref Range Status 06/29/2022 0.03 <0.11 k/uL Final PATH: Whipple on November: SYNOPTIC REPORT OF MANJARREZ PATHOLOGIC FINDINGS WHIPPLE, GALLBLADER, OMENTUM: PANCREAS EXOCRINE WORKSHEET Specimen: Head of pancreas Body of pancreas Duodenum Stomach Common bile duct Gallbladder Procedure: Pancreaticoduodenectomy (Whipple resection), partial pancreatectomy Tumor Site: Pancreatic head Histologic Type: Ductal adenocarcinoma (NOS) Histologic Grade: G2: Moderately differentiated Tumor Size: Greatest dimension: 8.1 cm Microscopic Tumor Extension: Tumor invades duodenal wall Tumor invades peripancreatic soft tissues Tumor invades posterior surface of pancreas Tissue Specimen Type: Pancreaticoduodenal Resection Specimen Margins for Pancreaticoduodenal Resection Specimen: Pancreatic neck/parenchymal margin uninvolved by pancreatic high-grade intraepithelial neoplasia or invasive carcinoma Uncinate (retroperitoneal/superior mesentric artery) margin cannot be assessed Bile duct margin uninvolved by high-grade intraepithelial neoplasia or invasive carcinoma Proximal margin (Gastric or Duodenal) uninvolved by high-grade dysplasia or invasive carcinoma Distal margin (Duodenal or Jejunal) uninvolved by high-grade dysplasia or invasive carcinoma Treatment Effect: No known presurgical therapy Lymphovascular Invasion: Present Perineural Invasion: Present Pathologic Stage Classification (pTNM, AJCC 8th ed) TNM Descriptors: Not applicable Primary Tumor (pT): pT3: Tumor >4 cm in greatest dimension Regional lymph nodes (pN): pN2: Metastasis in four or more regional lymph nodes Number of lymph nodes involved: 7 Number of lymph nodes examined: 27 Distant Metastasis (pM): Not applicable/Not confirmed pathologically in this case Comment: Gallbladder with chronic cholecystitis and cholesterolosis. 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 Large fluid collection in the anterior abdominal wall which visualizes to the skin surface. This collection may arise near the pancreaticojejunostomy. 2. No definite findings to suggest metastatic disease in the abdomen or pelvis. 3. Calcifications within the urinary bladder, nonspecific. A urothelial lesion is not excluded. Consider urologic consultation. CT Pancreas 01/2022: 1. Since 03/15/2021, marked increase in central mesenteric and retroperitoneal lymphadenopathy, suspicious for disease progression. 2. 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 3. Unchanged ill-defined soft tissue surrounding the origin of the celiac artery and common hepatic artery, suspicious for recurrent neoplasm. 4. Status post Whipple procedure. A pancreatic duct stent remains in place. No new pancreatic ductal dilatation. 5. Unchanged heterogeneous attenuation of the pelvic marrow, nonspecific but favored to be secondary to marrow reconversion. Continued attention on subsequent studies is suggested. If warranted, consider further assessment with nuclear medicine bone scan. CT of the chest and Abd and Pelvis 05/2022: 1. Stable CT of the chest. Unchanged appearance of left lower lobe 4 mm nodule. No new or enlarging nodules are visualized. 2. Stable appearance of prominent lymph node in the anterior mediastinum. No new bulky intrathoracic adenopathy is seen. 3. Stable findings of prior granulomatous disease 1. Mesenteric and retroperitoneal lymphadenopathy as noted above. The majority of the visualized lymph nodes appear stable, however there is slight interval increase in size of an aortocaval node. Recommend continued follow-up. 2. Stable ill-defined soft tissue density/fat stranding in the origin of the celiac artery which may be on the basis of postsurgical change versus recurrent neoplasm. 3. Stable postsurgical changes in keeping with prior Whipple procedure. No pancreatic ductal dilation or recurrent mass is seen. 4. Previously described ill-defined soft tissue in the ellen hepatis is not well seen on the current study. Assessment and Plan: Uriel Anderson is a 72 year old year old male here for follow up. T3, N2, M0, pancreatic adenocarcinoma. Patient with postoperative complications which precluded adjuvant chemo and did have additional admissions and procedures lastly a stent in the PJ stenosis in 04/2021. His CT, 01/2022 with sandy progression and he has recurrence. His initial disease state was very high risk. Post 4 cycles of therapy and with stable disease on CT 05/2022. Discussed the results and he would like some time off chemo. He would like to continue to stay off chemo and will see back in 5 weeks and repeat imaging as well. Continue nutrition follow up Anemia- Monitor. Thank you for the kind referral. If there are any questions and or concerns please do not hesitate to contact me at [phone]. Grace Bess MD Hematology/Medical Oncology [facility] CC: Giovanni Hamlin MD I spent a total of 30 minutes on the date of the service which included preparing to see the patient, [id number] patient care, completing clinical documentation, obtaining and/or reviewing separately obtained history, performing a medically appropriate examination, counseling and educating the patient/family/caregiver, ordering medications, tests, or procedures, and independently interpreting results (not separately reported). documented in this encounter [facility] 05-11-2022 Miscellaneous Notes Addended by: GRACE BESS on: 05/11/2022 09:59 AM Modules accepted: Orders documented in this encounter [facility] 05-11-2022 History of Present illness Narrative PATIENT NAME: Uriel Anderson [facility] NO.: [id number] ATTENDING PHYSICIAN: Grace Bess MD DATE OF SERVICE: May 11, 2022 Some of the elements of this note have been copied from my previous progress note dated 04/20/2022. All the information has been reviewed carefully. Dear Dr. Hamlin here is an update on a follow up visit on male Uriel Anderson at the clinic May 11, 2022 Diagnosis: 1. T3, and 2, M0 pancreatic cancer. Tumor is 8.1 cm, moderately differentiated adenocarcinoma, tumor invades duodenal wall, peripancreatic soft tissue. Margins were negative. Lymphovascular space invasion was present, perineural invasion was present. Metastatic disease in 7 of 27 lymph nodes. 2. NGS Tissue Based: KRAS [id number], EGFR amplified and RAC 1 Amplified , GIBRAN and TMB low, Liquid Based 03/2022: KRAS, APC and RON mutation as well. Treatment History: 3. Germline Testing: Negative 1. Diagnostic laparoscopy, pancreaticoduodenectomy, hepaticojejunostomy, pancreatico jejunostomy and gastrojejunostomy on December 04, 2019. Operative findings very bulky pancreatic head mass with significant adenopathy. Large SMA lymph node which appeared to be right at the onset of margin and was completed dissected off the SMA. 2. Post op complication and did not receive adjuvant chemo 3. 04/2021: Successful sphincterotomy and dilation of pancreaticojejunostomy stricture and placement of an 8mm covered stent 4. CT 01/2022- recurrence 5. [place] and Abraxane 03/16/2022 HPI: Uriel Anderson is a 72 year old year old male here for follow up. Doing ok and denies any fevers and also denies any worsening neuropathy. Slightly more fatigue and would like to take next week off the chemo for the holidays. PAST MEDICAL HISTORY Diagnosis Date Acute bilateral deep vein thrombosis (DVT) of upper extremities (HCC) Adenocarcinoma of head of pancreas (HCC) Gastric outlet obstruction Obstructive sleep apnea Social History Tobacco Use Smoking status: Former Packs/day: 1.00 Years: 35.00 Pack years: 35.00 Types: Cigarettes Quit date: 2018 Years since quittin.9 Passive exposure: Past Smokeless tobacco: Never Vaping Use Vaping Use: Never used Substance Use Topics Alcohol use: Not Currently Drug use: Never FAMILY HISTORY Problem Relation Age of Onset Anesthesia Problems No Family History Past medical, social and family history reviewed without any changes. REVIEW OF SYSTEMS GENERAL: No weight loss, malaise or fevers. No night sweats. HEENT: Negative for headaches, No changes in hearing or vision, no nose bleeds or other nasal problems. RESPIRATORY: Negative for cough, wheezing and shortness of breath CARDIOVASCULAR: Negative for chest pain, leg swelling and palpitations GI: Negative for abdominal discomfort, blood in stools or black stools and change in bowel habits : Negative for dysuria, frequency and incontinence MUSCULOSKELETAL: Negative for joint pain or swelling, back pain, and muscle pain. SKIN: Negative for lesions, rash, and itching. HEMATOLOGY/LYMPHOLOGY Negative for prolonged bleeding, bruising easily, and swollen nodes. NEURO: Negative for numbness or tingling of hands/feet. No weakness. PHYSICAL EXAMINATION: BP 130/70 Pulse 76 Temp (Src) 97.5 (Temporal) Resp 16 Ht 5' 6.85 (1.70m) Wt 195 lb 9.6 oz (88.7kg) SpO2 98% BMI 30.77 kg/(m^2). Wt 79.4 kg (175 lb) BMI 26.61 kg/m2 Last 3 Encounter Wt Readings: Date: Wt: 03/06/2020 79.4 kg (175 lb) 02/14/2020 84.9 kg (187 lb 2.7 oz) 02/14/2020 82.2 kg (181 lb 3.2 oz) General appearance:ECOG PERFORMANCE STATUS: 1- Restricted in physically strenuous activity. Carries out light duty. Patient in NAD. Skin: Skin color, texture, turgor normal. No rashes or lesions. Eyes: Anicteric sclera. Pupils are equally round and reactive to light. Extraocular movements are intact. Lymph Nodes: No cervical, supraclavicular, axillary or inguinal adenopathy. Oropharynx: Lips, mucosa, and tongue normal. Back: No pain to percussion. Negative SLR test Lungs clear to auscultation, No wheezing or rhonchi Heart: RRR without murmur, gallop, or rubs. Abdomen: Abdomen is soft but there is purulent drainage from around the pigtail catheter as well as the laparoscopic ports. Minimal tenderness. No rebound or guarding. Extremities: No deformities. No edema Neuro: Gait and speech normal. Reflexes normal and symmetric. Muscular strength intact. Sensation grossly intact. Rectal: Deferred : Deferred LABS: Glucose (mg/dL) Date Value 05/11/2022 240 02/11/2021 104 Potassium (mmol/L) Date Value 05/11/2022 4.6 02/11/2021 4.0 Sodium (mmol/L) Date Value 05/11/2022 136 02/11/2021 139 Chloride (mmol/L) Date Value 05/11/2022 105 02/11/2021 105 CO2 (mmol/L) Date Value 05/11/2022 24 02/11/2021 25 Creatinine (mg/dL) Date Value 05/11/2022 0.71 02/11/2021 0.49 BUN (mg/dL) Date Value 05/11/2022 17 02/11/2021 6 Anion Gap (mmol/L) Date Value 05/11/2022 7 02/11/2021 9 Calcium (mg/dL) Date Value 02/11/2021 9.5 Calcium, Total (mg/dL) Date Value 05/11/2022 9.8 Protein, Total (g/dL) Date Value 05/11/2022 6.5 02/11/2021 5.5 Albumin (g/dL) Date Value 05/11/2022 3.9 02/11/2021 2.5 Bilirubin, Total (mg/dL) Date Value 05/11/2022 0.6 02/11/2021 0.5 Alkaline Phosphatase (U/L) Date Value 05/11/2022 134 02/11/2021 84 AST (U/L) Date Value 05/11/2022 19 02/11/2021 10 ALT (U/L) Date Value 05/11/2022 20 02/11/2021 9 WBC Date Value Ref Range Status 05/11/2022 6.22 3.70 - 11.00 k/uL Final RBC Date Value Ref Range Status 05/11/2022 3.01 (L) 4.20 - 6.00 m/uL Final Hemoglobin Date Value Ref Range Status 05/11/2022 9.5 (L) 13.0 - 17.0 g/dL Final Hematocrit Date Value Ref Range Status 05/11/2022 30.7 (L) 39.0 - 51.0 % Final MCV Date Value Ref Range Status 05/11/2022 102.0 (H) 80.0 - 100.0 fL Final MCH Date Value Ref Range Status 05/11/2022 31.6 26.0 - 34.0 pg Final MCHC Date Value Ref Range Status 05/11/2022 30.9 30.5 - 36.0 g/dL Final RDW-CV Date Value Ref Range Status 05/11/2022 16.8 (H) 11.5 - 15.0 % Final Platelet Count Date Value Ref Range Status 05/11/2022 347 150 - 400 k/uL Final MPV Date Value Ref Range Status 05/11/2022 9.9 9.0 - 12.7 fL Final Abs Neut Date Value Ref Range Status 05/11/2022 3.79 1.45 - 7.50 k/uL Final Lymph% Date Value Ref Range Status 05/11/2022 24.0 % Final Abs Lymph Date Value Ref Range Status 05/11/2022 1.49 1.00 - 4.00 k/uL Final [place]% Date Value Ref Range Status 05/11/2022 12.7 % Final Abs [place] Date Value Ref Range Status 05/11/2022 0.79 <0.87 k/uL Final Eosin% Date Value Ref Range Status 05/11/2022 1.6 % Final Abs Eosin Date Value Ref Range Status 05/11/2022 0.10 <0.46 k/uL Final Baso% Date Value Ref Range Status 05/11/2022 0.3 % Final Abs Baso Date Value Ref Range Status 05/11/2022 <0.03 <0.11 k/uL Final PATH: Whipple on November: SYNOPTIC REPORT OF MANJARREZ PATHOLOGIC FINDINGS WHIPPLE, GALLBLADER, OMENTUM: PANCREAS EXOCRINE WORKSHEET Specimen: Head of pancreas Body of pancreas Duodenum Stomach Common bile duct Gallbladder Procedure: Pancreaticoduodenectomy (Whipple resection), partial pancreatectomy Tumor Site: Pancreatic head Histologic Type: Ductal adenocarcinoma (NOS) Histologic Grade: G2: Moderately differentiated Tumor Size: Greatest dimension: 8.1 cm Microscopic Tumor Extension: Tumor invades duodenal wall Tumor invades peripancreatic soft tissues Tumor invades posterior surface of pancreas Tissue Specimen Type: Pancreaticoduodenal Resection Specimen Margins for Pancreaticoduodenal Resection Specimen: Pancreatic neck/parenchymal margin uninvolved by pancreatic high-grade intraepithelial neoplasia or invasive carcinoma Uncinate (retroperitoneal/superior mesentric artery) margin cannot be assessed Bile duct margin uninvolved by high-grade intraepithelial neoplasia or invasive carcinoma Proximal margin (Gastric or Duodenal) uninvolved by high-grade dysplasia or invasive carcinoma Distal margin (Duodenal or Jejunal) uninvolved by high-grade dysplasia or invasive carcinoma Treatment Effect: No known presurgical therapy Lymphovascular Invasion: Present Perineural Invasion: Present Pathologic Stage Classification (pTNM, AJCC 8th ed) TNM Descriptors: Not applicable Primary Tumor (pT): pT3: Tumor >4 cm in greatest dimension Regional lymph nodes (pN): pN2: Metastasis in four or more regional lymph nodes Number of lymph nodes involved: 7 Number of lymph nodes examined: 27 Distant Metastasis (pM): Not applicable/Not confirmed pathologically in this case Comment: Gallbladder with chronic cholecystitis and cholesterolosis. 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 Large fluid collection in the anterior abdominal wall which visualizes to the skin surface. This collection may arise near the pancreaticojejunostomy. 2. No definite findings to suggest metastatic disease in the abdomen or pelvis. 3. Calcifications within the urinary bladder, nonspecific. A urothelial lesion is not excluded. Consider urologic consultation. CT Pancreas 01/2022: 1. Since 03/15/2021, marked increase in central mesenteric and retroperitoneal lymphadenopathy, suspicious for disease progression. 2. 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 3. Unchanged ill-defined soft tissue surrounding the origin of the celiac artery and common hepatic artery, suspicious for recurrent neoplasm. 4. Status post Whipple procedure. A pancreatic duct stent remains in place. No new pancreatic ductal dilatation. 5. Unchanged heterogeneous attenuation of the pelvic marrow, nonspecific but favored to be secondary to marrow reconversion. Continued attention on subsequent studies is suggested. If warranted, consider further assessment with nuclear medicine bone scan. Assessment and Plan: Uriel Anderson is a 72 year old year old male here for follow up. T3, N2, M0, pancreatic adenocarcinoma. Patient with postoperative complications which precluded adjuvant chemo and did have additional admissions and procedures lastly a stent in the PJ stenosis in 04/2021. His CT, 01/2022 with sandy progression and he has recurrence. His initial disease state was very high risk. Here for cycle 4 and [place] and Abraxane and will skip next week and plan imaging and see back in 3 weeks Continue nutrition follow up Anemia- Monitor. Thank you for the kind referral. If there are any questions and or concerns please do not hesitate to contact me at [phone]. Grace Bess MD Hematology/Medical Oncology [facility] CC: Giovanni Hamlin MD I spent a total of 30 minutes on the date of the service which included preparing to see the patient, [id number] patient care, completing clinical documentation, obtaining and/or reviewing separately obtained history, performing a medically appropriate examination, counseling and educating the patient/family/caregiver, ordering medications, tests, or procedures, and independently interpreting results (not separately reported). documented in this encounter [facility] 04-27-2022 History of Present illness Narrative PATIENT NAME: Uriel Anderson CLINIC NO.: [id number] ATTENDING PHYSICIAN: Grace Bess MD DATE OF SERVICE: April 27, 2022 Some of the elements of this note have been copied from my previous progress note dated 04/20/2022. All the information has been reviewed carefully. Dear Dr. Hamlin here is an update on a follow up visit on male Uriel Anderson at the clinic April 27, 2022. Diagnosis: 1. T3, and 2, M0 pancreatic cancer. Tumor is 8.1 cm, moderately differentiated adenocarcinoma, tumor invades duodenal wall, peripancreatic soft tissue. Margins were negative. Lymphovascular space invasion was present, perineural invasion was present. Metastatic disease in 7 of 27 lymph nodes. 2. NGS Tissue Based: KRAS [id number], EGFR amplified and RAC 1 Amplified , GIBRAN and TMB low. Liquid Based 03/2022: KRAS, APC and RON mutation as well. 3. Germline Testing: Negative. Treatment History: 1. Diagnostic laparoscopy, pancreaticoduodenectomy, hepaticojejunostomy, pancreatico jejunostomy and gastrojejunostomy on December 04, 2019. Operative findings very bulky pancreatic head mass with significant adenopathy. Large SMA lymph node which appeared to be right at the onset of margin and was completed dissected off the SMA. 2. Post op complication and did not receive adjuvant chemotherapy. 3. 04/2021: Successful sphincterotomy and dilation of pancreaticojejunostomy stricture and placement of an 8mm covered stent. 4. CT 01/2022- Recurrence. 5. Gemcitabine and Abraxane 03/16/2022. HPI: Uriel Anderson is a 72 year old year old male here for follow up and continued treatment. He remains on treatment with gemcitabine and Abraxane 2 weeks on and 1 week off. He has noticed that he has been more tired. He does not have a whole lot of energy. He has more shortness of breath. He had some lightheadedness this morning. He states that his last treatment hit him harder. He denies nausea and vomiting. He had 1 day of diarrhea. He denies abdominal pain. His appetite is good. He denies fevers and signs/symptoms of infection. He has occasional hot and cold spells. He states that he stopped the gabapentin. He states that his the numbness and tingling in his toes is better since stopping the gabapentin. His pinky fingers still have numbness and tingling which seem a little worse. Despite his complaints, he wishes to proceed with treatment as planned. PAST MEDICAL HISTORY Diagnosis Date Acute bilateral deep vein thrombosis (DVT) of upper extremities (HCC) Adenocarcinoma of head of pancreas (HCC) Gastric outlet obstruction Obstructive sleep apnea Social History Tobacco Use Smoking status: Former Packs/day: 1.00 Years: 35.00 Pack years: 35.00 Types: Cigarettes Quit date: 2018 Years since quittin.9 Passive exposure: Past Smokeless tobacco: Never Vaping Use Vaping Use: Never used Substance Use Topics Alcohol use: Not Currently Drug use: Never FAMILY HISTORY Problem Relation Age of Onset Anesthesia Problems No Family History Past medical, social and family history reviewed without any changes. REVIEW OF SYSTEMS General: No weight loss, malaise or fevers. No night sweats. HEENT: Negative for headaches, No changes in hearing or vision, no nose bleeds or other nasal problems. Respiratory: Negative for cough, wheezing and shortness of breath. Cardiovascular: Negative for chest pain, leg swelling and palpitations. GI: Negative for abdominal discomfort, blood in stools or black stools and change in bowel habits. : Negative for dysuria, frequency and incontinence. Musculoskeletal: Negative for joint pain or swelling, back pain and muscle pain. Skin: Negative for lesions, rash and itching. Hematology/Lymphology: Negative for prolonged bleeding, bruising easily, and swollen nodes. Neuro: Negative for numbness or tingling of hands/feet. No weakness. PHYSICAL EXAMINATION: BP 136/68 Pulse 79 Temp (Src) 97.4 (Temporal) Resp 16 Ht 5' 6.85 (1.70m) Wt 193 lb 3.2 oz (87.6kg) SpO2 99% BMI 30.40 kg/(m^2). General appearance:ECOG PERFORMANCE STATUS: 1- Restricted in physically strenuous activity. Carries out light duty. Exam limited to gross visualization where appropriate due to COVID-19. Gen.: This is an age-appropriate patient in no acute distress. Head: Appears atraumatic with no visible lesions. Eyes: Pupils equally round and reactive to light, extraocular muscles are intact. Neck: Supple. Mouth: Masked. Respiratory: Appears to be respiring comfortably. Neurologic: Nonfocal to gross visualization. Alert and oriented 3. Psychiatric: No evidence of inappropriate anxiety or depression. Skin: Visible areas of skin without rash, lesions, wounds or petechiae. LABS: Hemoglobin (g/dL) Date Value 04/26/2022 8.5 02/11/2021 9.1 Hematocrit (%) Date Value 04/26/2022 26.9 02/11/2021 28.1 WBC (k/uL) Date Value 04/26/2022 6.16 02/11/2021 8.84 Platelet Count (k/uL) Date Value 04/26/2022 413 02/11/2021 264 PATH: Whipple on November: SYNOPTIC REPORT OF MANJARREZ PATHOLOGIC FINDINGS TAHMINA, TASHA, OMENTUM: PANCREAS EXOCRINE WORKSHEET Specimen: Head of pancreas Body of pancreas Duodenum Stomach Common bile duct Gallbladder Procedure: Pancreaticoduodenectomy (Whipple resection), partial pancreatectomy Tumor Site: Pancreatic head Histologic Type: Ductal adenocarcinoma (NOS) Histologic Grade: G2: Moderately differentiated Tumor Size: Greatest dimension: 8.1 cm Microscopic Tumor Extension: Tumor invades duodenal wall Tumor invades peripancreatic soft tissues Tumor invades posterior surface of pancreas Tissue Specimen Type: Pancreaticoduodenal Resection Specimen Margins for Pancreaticoduodenal Resection Specimen: Pancreatic neck/parenchymal margin uninvolved by pancreatic high-grade intraepithelial neoplasia or invasive carcinoma Uncinate (retroperitoneal/superior mesentric artery) margin cannot be assessed Bile duct margin uninvolved by high-grade intraepithelial neoplasia or invasive carcinoma Proximal margin (Gastric or Duodenal) uninvolved by high-grade dysplasia or invasive carcinoma Distal margin (Duodenal or Jejunal) uninvolved by high-grade dysplasia or invasive carcinoma Treatment Effect: No known presurgical therapy Lymphovascular Invasion: Present Perineural Invasion: Present Pathologic Stage Classification (pTNM, AJCC 8th ed) TNM Descriptors: Not applicable Primary Tumor (pT): pT3: Tumor >4 cm in greatest dimension Regional lymph nodes (pN): pN2: Metastasis in four or more regional lymph nodes Number of lymph nodes involved: 7 Number of lymph nodes examined: 27 Distant Metastasis (pM): Not applicable/Not confirmed pathologically in this case Comment: Gallbladder with chronic cholecystitis and cholesterolosis. 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 Large fluid collection in the anterior abdominal wall which visualizes to the skin surface. This collection may arise near the pancreaticojejunostomy. 2. No definite findings to suggest metastatic disease in the abdomen or pelvis. 3. Calcifications within the urinary bladder, nonspecific. A urothelial lesion is not excluded. Consider urologic consultation. CT Pancreas 01/2022: 1. Since 03/15/2021, marked increase in central mesenteric and retroperitoneal lymphadenopathy, suspicious for disease progression. 2. 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 3. Unchanged ill-defined soft tissue surrounding the origin of the celiac artery and common hepatic artery, suspicious for recurrent neoplasm. 4. Status post Whipple procedure. A pancreatic duct stent remains in place. No new pancreatic ductal dilatation. 5. Unchanged heterogeneous attenuation of the pelvic marrow, nonspecific but favored to be secondary to marrow reconversion. Continued attention on subsequent studies is suggested. If warranted, consider further assessment with nuclear medicine bone scan. Assessment and Plan: Uriel Anderson is a 72 year old year old male here for follow up and continued treatment. T3, N2, M0, pancreatic adenocarcinoma. Patient with postoperative complications which precluded adjuvant chemo and did have additional admissions and procedures lastly a stent in the PJ stenosis in 04/2021. His latest CT, 01/2022 with sandy progression and he has recurrence. His initial disease state was very high risk. Here for cycle 3 day 8 and Gemcitabine and Abraxane. Continue nutrition follow up. See back in 2 weeks for day cycle 4. Thank you for the kind referral. If there are any questions and or concerns please do not hesitate to contact Grace Bess MD at [phone]. Yordy Moncada APRN.CNP Hematology/Medical Oncology [facility] CC: Giovanni Hamlin MD documented in this encounter [facility] 04-20-2022 Miscellaneous Notes Call received from [employer] needing clarification on gabapentin script. Script is written to be taken daily for a quantity of 30, but states for 14 days on the script. Discussed with Dr Bess and he would like this for a full 30 days. Orders given to pharmacist without difficulty. Josephine Salomon RN documented in this encounter [facility] 04-06-2022 History of Present illness Narrative PATIENT NAME: Uriel Anderson [facility] NO.: [id number] ATTENDING PHYSICIAN: Grace Bess MD DATE OF SERVICE: March 30, 2022 (Elements copied from my note dated March 16, 2022, have been reviewed and updated where appropriate, and all reflect current assessment and medical decision making during today's encounter, March 30, 2022) CC: Follow up and treatment Diagnosis: 1. T3, and 2, M0 pancreatic cancer. Tumor is 8.1 cm, moderately differentiated adenocarcinoma, tumor invades duodenal wall, peripancreatic soft tissue. Margins were negative. Lymphovascular space invasion was present, perineural invasion was present. Metastatic disease in 7 of 27 lymph nodes. 2.Germline testing negative Treatment History: 1. Diagnostic laparoscopy, pancreaticoduodenectomy, hepaticojejunostomy, pancreatico jejunostomy and gastrojejunostomy on December 04, 2019. Operative findings very bulky pancreatic head mass with significant adenopathy. Large SMA lymph node which appeared to be right at the onset of margin and was completed dissected off the SMA. 2. Post op complication and did not receive adjuvant chemo 3. 04/2021: Successful sphincterotomy and dilation of pancreaticojejunostomy stricture and placement of an 8mm covered stent 4. CT 01/2022- recurrence 5. 02/2022 started Gemzar and Abraxane HPI: Alfred returns with his for cycle 2 day 8 of treatment. He has 2 days following treatment where he sleeps more. He also has noticed he gets tired easier. He is still doing his yard work and is busy helping with his grandkids. Denies any fevers, chills, nausea or vomiting or abdominal pain. PAST MEDICAL HISTORY Diagnosis Date Acute bilateral deep vein thrombosis (DVT) of upper extremities (HCC) Adenocarcinoma of head of pancreas (HCC) Gastric outlet obstruction Obstructive sleep apnea Social History Tobacco Use Smoking status: Former Packs/day: 1.00 Years: 35.00 Pack years: 35.00 Types: Cigarettes Quit date: 2018 Years since quittin.8 Passive exposure: Past Smokeless tobacco: Never Vaping Use Vaping Use: Never used Substance Use Topics Alcohol use: Not Currently Drug use: Never FAMILY HISTORY Problem Relation Age of Onset Anesthesia Problems No Family History Past medical, social and family history reviewed without any changes. REVIEW OF SYSTEMS GENERAL: No weight loss, malaise or fevers. No night sweats. HEENT: Negative for headaches, No changes in hearing or vision, no nose bleeds or other nasal problems. Mild mucositis of gums and nose RESPIRATORY: Negative for cough, wheezing and shortness of breath CARDIOVASCULAR: Negative for chest pain, leg swelling and palpitations GI: Negative for abdominal discomfort, blood in stools or black stools and change in bowel habits : Negative for dysuria, frequency and incontinence MUSCULOSKELETAL: Negative for joint pain or swelling, back pain, and muscle pain. SKIN: Negative for lesions, rash, and itching. HEMATOLOGY/LYMPHOLOGY Negative for prolonged bleeding, bruising easily, and swollen nodes. NEURO: Negative for numbness or tingling of hands/feet. No weakness. PHYSICAL EXAMINATION: BP 125/73 Pulse 76 Temp (Src) 97.3 (Temporal) Resp 16 Ht 5' 6.85 (1.70m) Wt 195 lb 12.8 oz (88.8kg) SpO2 100% BMI 30.80 kg/(m^2). ECOG PERFORMANCE STATUS: 1- Restricted in physically strenuous activity. Carries out light duty. General: Alert and oriented, no distress, pleasant and cooperative. Heart: Regular, normal S1 and S2, no murmurs, rubs, or gallops Lungs: Clear to auscultation bilaterally Abdomen: Benign Extremities: Feet/ankles without edema, posterior tibial pulses full and symmetrical LABS: Glucose (mg/dL) Date Value 04/06/2022 160 02/11/2021 104 Potassium (mmol/L) Date Value 04/06/2022 5.0 02/11/2021 4.0 Sodium (mmol/L) Date Value 04/06/2022 140 02/11/2021 139 Chloride (mmol/L) Date Value 04/06/2022 106 02/11/2021 105 CO2 (mmol/L) Date Value 04/06/2022 26 02/11/2021 25 Creatinine (mg/dL) Date Value 04/06/2022 0.74 02/11/2021 0.49 BUN (mg/dL) Date Value 04/06/2022 14 02/11/2021 6 Anion Gap (mmol/L) Date Value 04/06/2022 8 02/11/2021 9 Calcium (mg/dL) Date Value 02/11/2021 9.5 Calcium, Total (mg/dL) Date Value 04/06/2022 9.9 Protein, Total (g/dL) Date Value 04/06/2022 6.8 02/11/2021 5.5 Albumin (g/dL) Date Value 04/06/2022 4.1 02/11/2021 2.5 Bilirubin, Total (mg/dL) Date Value 04/06/2022 0.7 02/11/2021 0.5 Alkaline Phosphatase (U/L) Date Value 04/06/2022 155 02/11/2021 84 AST (U/L) Date Value 04/06/2022 32 02/11/2021 10 ALT (U/L) Date Value 04/06/2022 38 02/11/2021 9 WBC Date Value Ref Range Status 04/06/2022 3.48 (L) 3.70 - 11.00 k/uL Preliminary RBC Date Value Ref Range Status 04/06/2022 2.53 (L) 4.20 - 6.00 m/uL Preliminary Hemoglobin Date Value Ref Range Status 04/06/2022 8.5 (L) 13.0 - 17.0 g/dL Preliminary Hematocrit Date Value Ref Range Status 04/06/2022 26.4 (L) 39.0 - 51.0 % Preliminary MCV Date Value Ref Range Status 04/06/2022 104.3 (H) 80.0 - 100.0 fL Preliminary MCH Date Value Ref Range Status 04/06/2022 33.6 26.0 - 34.0 pg Preliminary MCHC Date Value Ref Range Status 04/06/2022 32.2 30.5 - 36.0 g/dL Preliminary RDW-CV Date Value Ref Range Status 04/06/2022 16.8 (H) 11.5 - 15.0 % Preliminary Platelet Count Date Value Ref Range Status 04/06/2022 403 (H) 150 - 400 k/uL Preliminary MPV Date Value Ref Range Status 04/06/2022 8.9 (L) 9.0 - 12.7 fL Preliminary Abs Neut Date Value Ref Range Status 03/30/2022 4.26 1.45 - 7.50 k/uL Final Lymph% Date Value Ref Range Status 03/30/2022 23.1 % Final Abs Lymph Date Value Ref Range Status 03/30/2022 1.48 1.00 - 4.00 k/uL Final [place]% Date Value Ref Range Status 03/30/2022 8.7 % Final Abs [place] Date Value Ref Range Status 03/30/2022 0.56 <0.87 k/uL Final Eosin% Date Value Ref Range Status 03/30/2022 0.9 % Final Abs Eosin Date Value Ref Range Status 03/30/2022 0.06 <0.46 k/uL Final Baso% Date Value Ref Range Status 03/30/2022 0.5 % Final Abs Baso Date Value Ref Range Status 03/30/2022 0.03 <0.11 k/uL Final PATH: Whipple on November: SYNOPTIC REPORT OF MANJARREZ PATHOLOGIC FINDINGS HAMIPPLE, GALLRIGOBERTOADER, OMENTUM: PANCREAS EXOCRINE WORKSHEET Specimen: Head of pancreas Body of pancreas Duodenum Stomach Common bile duct Gallbladder Procedure: Pancreaticoduodenectomy (Whipple resection), partial pancreatectomy Tumor Site: Pancreatic head Histologic Type: Ductal adenocarcinoma (NOS) Histologic Grade: G2: Moderately differentiated Tumor Size: Greatest dimension: 8.1 cm Microscopic Tumor Extension: Tumor invades duodenal wall Tumor invades peripancreatic soft tissues Tumor invades posterior surface of pancreas Tissue Specimen Type: Pancreaticoduodenal Resection Specimen Margins for Pancreaticoduodenal Resection Specimen: Pancreatic neck/parenchymal margin uninvolved by pancreatic high-grade intraepithelial neoplasia or invasive carcinoma Uncinate (retroperitoneal/superior mesentric artery) margin cannot be assessed Bile duct margin uninvolved by high-grade intraepithelial neoplasia or invasive carcinoma Proximal margin (Gastric or Duodenal) uninvolved by high-grade dysplasia or invasive carcinoma Distal margin (Duodenal or Jejunal) uninvolved by high-grade dysplasia or invasive carcinoma Treatment Effect: No known presurgical therapy Lymphovascular Invasion: Present Perineural Invasion: Present Pathologic Stage Classification (pTNM, AJCC 8th ed) TNM Descriptors: Not applicable Primary Tumor (pT): pT3: Tumor >4 cm in greatest dimension Regional lymph nodes (pN): pN2: Metastasis in four or more regional lymph nodes Number of lymph nodes involved: 7 Number of lymph nodes examined: 27 Distant Metastasis (pM): Not applicable/Not confirmed pathologically in this case Comment: Gallbladder with chronic cholecystitis and cholesterolosis. 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 Large fluid collection in the anterior abdominal wall which visualizes to the skin surface. This collection may arise near the pancreaticojejunostomy. 2. No definite findings to suggest metastatic disease in the abdomen or pelvis. 3. Calcifications within the urinary bladder, nonspecific. A urothelial lesion is not excluded. Consider urologic consultation. CT Pancreas 01/2022: 1. Since 03/15/2021, marked increase in central mesenteric and retroperitoneal lymphadenopathy, suspicious for disease progression. 2. 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 3. Unchanged ill-defined soft tissue surrounding the origin of the celiac artery and common hepatic artery, suspicious for recurrent neoplasm. 4. Status post Whipple procedure. A pancreatic duct stent remains in place. No new pancreatic ductal dilatation. 5. Unchanged heterogeneous attenuation of the pelvic marrow, nonspecific but favored to be secondary to marrow reconversion. Continued attention on subsequent studies is suggested. If warranted, consider further assessment with nuclear medicine bone scan. CT Chest 03/07/2022: 1. Stable appearance of left lower lobe 4 mm nodule. No new or enlarging nodules are visualized. 2. Slight interval increase in size of a superior mediastinal node. No additional bulky intrathoracic adenopathy is seen. 3. Findings of prior granulomatous disease. Assessment and Plan: Uriel Anderson is a 71 year old year old male here for follow up. T3, N2, M0, pancreatic adenocarcinoma. Patient with postoperative complications which precluded adjuvant chemo and did have additional admissions and procedures lastly a stent in the PJ stenosis in 04/2021. His latest CT, 01/2022 with sandy progression and he has recurrence. His initial disease state was very high risk. He was started on [place] and abraxane 03/09/2022 with good tolerance so far. Will continue with cycle 2 day 8 today. He will return in 2 weeks for cycle 3. Plan will be to image following cycle 3. 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 Stable today, monitor Guardant 360 and tissue based NGS- still pending Medical Cancer genetics- germline testing negative Neuropathy--chronic, improved with gabapentin Continue nutrition follow up Greta Wetzel PA-C CC: Giovanni Hamlin MD documented in this encounter [facility] 04-05-2022 Miscellaneous Notes Pt has reviewed his results on my chart Josephine Salomon RN ----- Message from Greta Wetzel PA-C sent at 03/31/2022 10:46 AM EST ----- Please call with [id number] documented in this encounter [facility] 03-30-2022 Miscellaneous Notes Call received from Candy, pharmacist at [employer], regarding gabapentin script. Discussed with Greta who states pt will be taking it for 30 days now because it's working well. Pharmacist notified of this and she will remove the portion of the sig that says for 14 days. Josephine Salomon RN documented in this encounter [facility] 03-30-2022 History of Present illness Narrative PATIENT NAME: Uriel Anderson [facility] NO.: [id number] ATTENDING PHYSICIAN: Grace Bess MD DATE OF SERVICE: March 30, 2022 (Elements copied from my note dated March 16, 2022, have been reviewed and updated where appropriate, and all reflect current assessment and medical decision making during today's encounter, March 30, 2022) CC: Follow up and treatment Diagnosis: 1. T3, and 2, M0 pancreatic cancer. Tumor is 8.1 cm, moderately differentiated adenocarcinoma, tumor invades duodenal wall, peripancreatic soft tissue. Margins were negative. Lymphovascular space invasion was present, perineural invasion was present. Metastatic disease in 7 of 27 lymph nodes. 2.Germline testing negative Treatment History: 1. Diagnostic laparoscopy, pancreaticoduodenectomy, hepaticojejunostomy, pancreatico jejunostomy and gastrojejunostomy on December 04, 2019. Operative findings very bulky pancreatic head mass with significant adenopathy. Large SMA lymph node which appeared to be right at the onset of margin and was completed dissected off the SMA. 2. Post op complication and did not receive adjuvant chemo 3. 04/2021: Successful sphincterotomy and dilation of pancreaticojejunostomy stricture and placement of an 8mm covered stent 4. CT 01/2022- recurrence 5. 02/2022 started Gemzar and Abraxane HPI: Alfred returns for cycle 2 of gem/abraxane. Did well with treatment. No nausea, vomiting, fever, chills or abdominal pain. He did start his Neurontin 300 mg hs for his chronic neuropathy and it has helped. He has no new issues or complaints today, PAST MEDICAL HISTORY Diagnosis Date Acute bilateral deep vein thrombosis (DVT) of upper extremities (HCC) Adenocarcinoma of head of pancreas (HCC) Gastric outlet obstruction Obstructive sleep apnea Social History Tobacco Use Smoking status: Former Packs/day: 1.00 Years: 35.00 Pack years: 35.00 Types: Cigarettes Quit date: 2019 Years since quittin.8 Passive exposure: Past Smokeless tobacco: Never Vaping Use Vaping Use: Never used Substance Use Topics Alcohol use: Not Currently Drug use: Never FAMILY HISTORY Problem Relation Age of Onset Anesthesia Problems No Family History Past medical, social and family history reviewed without any changes. REVIEW OF SYSTEMS GENERAL: No weight loss, malaise or fevers. No night sweats. HEENT: Negative for headaches, No changes in hearing or vision, no nose bleeds or other nasal problems. Mild mucositis of gums and nose RESPIRATORY: Negative for cough, wheezing and shortness of breath CARDIOVASCULAR: Negative for chest pain, leg swelling and palpitations GI: Negative for abdominal discomfort, blood in stools or black stools and change in bowel habits : Negative for dysuria, frequency and incontinence MUSCULOSKELETAL: Negative for joint pain or swelling, back pain, and muscle pain. SKIN: Negative for lesions, rash, and itching. HEMATOLOGY/LYMPHOLOGY Negative for prolonged bleeding, bruising easily, and swollen nodes. NEURO: Negative for numbness or tingling of hands/feet. No weakness. PHYSICAL EXAMINATION: BP 136/72 Pulse 69 Temp (Src) 97.8 (Temporal) Resp 16 Ht 5' 6.85 (1.70m) Wt 193 lb 3.2 oz (87.6kg) SpO2 98% BMI 30.40 kg/(m^2). ECOG PERFORMANCE STATUS: 1- Restricted in physically strenuous activity. Carries out light duty. General: Alert and oriented, no distress, pleasant and cooperative. Heart: Regular, normal S1 and S2, no murmurs, rubs, or gallops Lungs: Clear to auscultation bilaterally Abdomen: Benign Extremities: Feet/ankles without edema, posterior tibial pulses full and symmetrical LABS: Glucose (mg/dL) Date Value 03/30/2022 131 02/11/2021 104 Potassium (mmol/L) Date Value 03/30/2022 4.5 02/11/2021 4.0 Sodium (mmol/L) Date Value 03/30/2022 135 02/11/2021 139 Chloride (mmol/L) Date Value 03/30/2022 103 02/11/2021 105 CO2 (mmol/L) Date Value 03/30/2022 25 02/11/2021 25 Creatinine (mg/dL) Date Value 03/30/2022 0.76 02/11/2021 0.49 BUN (mg/dL) Date Value 03/30/2022 11 02/11/2021 6 Anion Gap (mmol/L) Date Value 03/30/2022 7 02/11/2021 9 Calcium (mg/dL) Date Value 02/11/2021 9.5 Calcium, Total (mg/dL) Date Value 03/30/2022 9.9 Protein, Total (g/dL) Date Value 03/30/2022 6.9 02/11/2021 5.5 Albumin (g/dL) Date Value 03/30/2022 4.1 02/11/2021 2.5 Bilirubin, Total (mg/dL) Date Value 03/30/2022 0.7 02/11/2021 0.5 Alkaline Phosphatase (U/L) Date Value 03/30/2022 161 02/11/2021 84 AST (U/L) Date Value 03/30/2022 18 02/11/2021 10 ALT (U/L) Date Value 03/30/2022 19 02/11/2021 9 WBC Date Value Ref Range Status 03/30/2022 6.41 3.70 - 11.00 k/uL Final RBC Date Value Ref Range Status 03/30/2022 2.56 (L) 4.20 - 6.00 m/uL Final Hemoglobin Date Value Ref Range Status 03/30/2022 8.5 (L) 13.0 - 17.0 g/dL Final Hematocrit Date Value Ref Range Status 03/30/2022 26.7 (L) 39.0 - 51.0 % Final MCV Date Value Ref Range Status 03/30/2022 104.3 (H) 80.0 - 100.0 fL Final MCH Date Value Ref Range Status 03/30/2022 33.2 26.0 - 34.0 pg Final MCHC Date Value Ref Range Status 03/30/2022 31.8 30.5 - 36.0 g/dL Final RDW-CV Date Value Ref Range Status 03/30/2022 17.6 (H) 11.5 - 15.0 % Final Platelet Count Date Value Ref Range Status 03/30/2022 400 150 - 400 k/uL Final MPV Date Value Ref Range Status 03/30/2022 8.9 (L) 9.0 - 12.7 fL Final Abs Neut Date Value Ref Range Status 03/30/2022 4.26 1.45 - 7.50 k/uL Final Lymph% Date Value Ref Range Status 03/30/2022 23.1 % Final Abs Lymph Date Value Ref Range Status 03/30/2022 1.48 1.00 - 4.00 k/uL Final [place]% Date Value Ref Range Status 03/30/2022 8.7 % Final Abs [place] Date Value Ref Range Status 03/30/2022 0.56 <0.87 k/uL Final Eosin% Date Value Ref Range Status 03/30/2022 0.9 % Final Abs Eosin Date Value Ref Range Status 03/30/2022 0.06 <0.46 k/uL Final Baso% Date Value Ref Range Status 03/30/2022 0.5 % Final Abs Baso Date Value Ref Range Status 03/30/2022 0.03 <0.11 k/uL Final PATH: Whipple on November: SYNOPTIC REPORT OF MANJARREZ PATHOLOGIC FINDINGS WHIPPLE, GALLBLADER, OMENTUM: PANCREAS EXOCRINE WORKSHEET Specimen: Head of pancreas Body of pancreas Duodenum Stomach Common bile duct Gallbladder Procedure: Pancreaticoduodenectomy (Whipple resection), partial pancreatectomy Tumor Site: Pancreatic head Histologic Type: Ductal adenocarcinoma (NOS) Histologic Grade: G2: Moderately differentiated Tumor Size: Greatest dimension: 8.1 cm Microscopic Tumor Extension: Tumor invades duodenal wall Tumor invades peripancreatic soft tissues Tumor invades posterior surface of pancreas Tissue Specimen Type: Pancreaticoduodenal Resection Specimen Margins for Pancreaticoduodenal Resection Specimen: Pancreatic neck/parenchymal margin uninvolved by pancreatic high-grade intraepithelial neoplasia or invasive carcinoma Uncinate (retroperitoneal/superior mesentric artery) margin cannot be assessed Bile duct margin uninvolved by high-grade intraepithelial neoplasia or invasive carcinoma Proximal margin (Gastric or Duodenal) uninvolved by high-grade dysplasia or invasive carcinoma Distal margin (Duodenal or Jejunal) uninvolved by high-grade dysplasia or invasive carcinoma Treatment Effect: No known presurgical therapy Lymphovascular Invasion: Present Perineural Invasion: Present Pathologic Stage Classification (pTNM, AJCC 8th ed) TNM Descriptors: Not applicable Primary Tumor (pT): pT3: Tumor >4 cm in greatest dimension Regional lymph nodes (pN): pN2: Metastasis in four or more regional lymph nodes Number of lymph nodes involved: 7 Number of lymph nodes examined: 27 Distant Metastasis (pM): Not applicable/Not confirmed pathologically in this case Comment: Gallbladder with chronic cholecystitis and cholesterolosis. 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 Large fluid collection in the anterior abdominal wall which visualizes to the skin surface. This collection may arise near the pancreaticojejunostomy. 2. No definite findings to suggest metastatic disease in the abdomen or pelvis. 3. Calcifications within the urinary bladder, nonspecific. A urothelial lesion is not excluded. Consider urologic consultation. CT Pancreas 01/2022: 1. Since 03/15/2021, marked increase in central mesenteric and retroperitoneal lymphadenopathy, suspicious for disease progression. 2. 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 3. Unchanged ill-defined soft tissue surrounding the origin of the celiac artery and common hepatic artery, suspicious for recurrent neoplasm. 4. Status post Whipple procedure. A pancreatic duct stent remains in place. No new pancreatic ductal dilatation. 5. Unchanged heterogeneous attenuation of the pelvic marrow, nonspecific but favored to be secondary to marrow reconversion. Continued attention on subsequent studies is suggested. If warranted, consider further assessment with nuclear medicine bone scan. CT Chest 03/07/2022: 1. Stable appearance of left lower lobe 4 mm nodule. No new or enlarging nodules are visualized. 2. Slight interval increase in size of a superior mediastinal node. No additional bulky intrathoracic adenopathy is seen. 3. Findings of prior granulomatous disease. Assessment and Plan: Uriel Anderson is a 71 year old year old male here for follow up. T3, N2, M0, pancreatic adenocarcinoma. Patient with postoperative complications which precluded adjuvant chemo and did have additional admissions and procedures lastly a stent in the PJ stenosis in 04/2021. His latest CT, 01/2022 with sandy progression and he has recurrence. His initial disease state was very high risk. He was started on [place] and abraxane 03/09/2022 with good tolerance so far. Labs reviewed and stable. Proceed with cycle 2 day 1 today and return in 1 week for day 8. 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 Stable today, monitor Guardant 360 and tissue based NGS- still pending Medical Cancer genetics- germline testing negative Continue nutrition follow up Greta Wetzel PA-C CC: Giovanni Hamlin MD documented in this encounter [facility] 03-28-2022 Miscellaneous Notes Hitesh Brady Results left on patient voicemail. Uriel Anderson's Multi-Cancer panel plus preliminary evidence pancreatic cancer and pancreatitis genes through [facility] was negative for a pathogenic variant. Please see Digeratihart message for further discussion. Jose Antonio Emerson MS, CGC Licensed, Certified Genetic Counselor documented in this encounter [facility] 03-17-2022 Miscellaneous Notes Pt's notified of negative stool results. Josephine Salomon RN documented in this encounter [facility] 03-16-2022 History of Present illness Narrative [facility] Consultation Note Genetic Counselor: Jose Antonio Emerson MS, [facility] Patient: Uriel Anderson Patient Name and confirmed at initiation of visit. Appointment occurred via audiovisual communication through Virtual[employer] Virtual Visit. HIGH LEVEL SUMMARY: The patient's personal history is potentially suggestive of a hereditary cancer syndrome. The patient provided informed consent for Multi-Cancer panel plus preliminary evidence pancreatic cancer and pancreatitis genes through [facility]. Results are expected in 2-3 weeks. IDENTIFICATION AND CHIEF COMPLAINT: Dr. Grace Bess requested a consultation for genetic counseling and risk assessment for Uriel Anderson, a 71 year old male, for discussion of his personal history of pancreatic cancer. He presents to clinic today to discuss the possibility of a genetic predisposition to cancer, and to further clarify his risks, as well as his family members' risks for cancer. HISTORY OF PRESENT ILLNESS: In 2019, at the age of 69, Uriel Anderson was diagnosed with adenocarcinoma of the pancreas. This was treated with surgical resection and no further treatment. Now in January of 2022, a recurrence was identified. He has begun systemic therapy consisting of Gemzar and Abraxane. PAST MEDICAL HISTORY Diagnosis Date Acute bilateral deep vein thrombosis (DVT) of upper extremities (HCC) Adenocarcinoma of head of pancreas (HCC) Gastric outlet obstruction Obstructive sleep apnea PAST SURGICAL HISTORY Procedure Laterality Date INGUINAL HERNIA REPAIR HX Right 01/06/2021 PAST SURGICAL HISTORY OF 12/04/2019 Whipple Procedure 12/04/2019 PAST SURGICAL HISTORY OF 2019 drainage of abscess, placement of drainage caths PICC LINE INSERT/CONSULT 03/11/2020 PICC LINE INSERT/CONSULT 02/11/2021 SOCIAL HISTORY: Social History Tobacco Use Smoking status: Former Packs/day: 1.00 Years: 35.00 Pack years: 35.00 Types: Cigarettes Quit date: 2018 Years since quittin.8 Passive exposure: Past Smokeless tobacco: Never Vaping Use Vaping Use: Never used Substance Use Topics Alcohol use: Not Currently Drug use: Never FAMILY HISTORY: We obtained a detailed, 4-generation family history. Significant diagnoses are listed below: Mother: breast cancer A copy of the patient's pedigree will be available under the scanned documents tab following today's visit. GENETIC COUNSELING RISK ASSESSMENT, DISCUSSION, AND SUGGESTED FOLLOW UP: We reviewed the natural history and genetic etiology of sporadic, familial and hereditary cancer syndromes. The patient's personal history is potentially suggestive of a hereditary cancer syndrome. The patient meets NCCN HBOC testing criteria based on his personal history of pancreatic cancer. We discussed that identification of a hereditary cancer syndrome may help his care providers tailor his medical management. If a mutation is detected, the patient will be referred back to the referring provider and to any additional appropriate care providers to discuss the relevant options. Inheritance of hereditary cancer syndromes was discussed with the patient. If a mutation is not found in the patient, this will decrease the likelihood of a hereditary cancer syndrome as the explanation for the patient's personal history of pancreatic cancer. However, it cannot completely rule out this possibility. Cancer surveillance options would be discussed for the patient according to the appropriate standard National Comprehensive Cancer Network and [place] [employer] guidelines, with consideration of their personal and family history risk factors. In this case, the patient will be referred back to their care providers for discussions of management. Based on this assessment of the patient's family and personal history, genetic testing is recommended. Reviewed multiple genes can lead to a predisposition to pancreatic cancer. Therefore, the role of a multigene panel was discussed. The patient was offered Multi-Cancer panel plus preliminary evidence pancreatic cancer and pancreatitis genes through [facility]. After considering the risks, benefits, and limitations, the patient chose to pursue and provided informed consent for the following testing: Multi-Cancer panel plus preliminary evidence pancreatic cancer and pancreatitis genes through [facility]. The Multi-Cancer Panel includes AIP, ALK, APC, RON, AXIN2, BAP1, BARD1, BLM, BMPR1A, BRCA1, BRCA2, BRIP1, CASR, CDC73, CDH1, CDK4, CDKN1B, CDKN1C, CDKN2A, CEBPA, CHEK2, CTNNA1, DICER1, DIS3L2, EGFR, EPCAM, FH, FLCN, GATA2, GPC3, GREM1, HOXB13, HRAS, KIT, MAX, MEN1, MET, MITF, MLH1, MSH2, MSH3, MSH6, MUTYH, NBN, NF1, NF2, NTHL1, PALB2, PDGFRA, PHOX2B, PMS2, POLD1, POLE, POT1, IWDHK2B, PTCH1, PTEN, RAD50, RAD51C, RAD51D, RB1, RECQL4, RET, RUNX1, SDHA, SDHAF2, SDHB, SDHC, SDHD, SMAD4, SMARCA4, SMARCB1, SMARCE1, STK11, SUFU, TERC, TERT, PLSJ533, TP53, TSC1, TSC2, VHL, WRN, and WT1. Preliminary evidence pancreatic cancer genes are CDK4, FANCC, and PALLD. Chronic pancreatitis genes are CASR, CFTR, CPA1, CTRC, PRSS1, and SPINK1. We discussed that an NGS panel can rarely result in an unexpected finding in a gene which may or may not be related to the presenting phenotype. Per the patient's request, I will contact him by telephone to discuss these results. A follow up genetic counseling visit will be scheduled if requested. The patient was seen for a total of 25 minutes, greater than 50% of which was spent [id number] counseling. This plan is being carried out under the oversight of Dr. Marina Aaron. This note will also be sent to the referring provider via the electronic medical record. Jose Antonio Emerson MS, [facility] Licensed, Certified Genetic Counselor EPIC CC: Dr. Grace Aaron documented in this encounter [facility] 03-16-2022 History of Present illness Narrative Pt c/o neuropathy becoming more aggravating. Bilateral hands up to forearms. This is not new since starting treatment. This was discussed with Akshat Prakash at treatment chairside and he will be given a trial of neurontin to take prior to bedtime. No change in doses required. documented in this encounter [facility] 03-16-2022 Miscellaneous Notes Addended by: GRETA WETZEL on: 03/16/2022 11:21 AM Modules accepted: Orders documented in this encounter [facility] 03-16-2022 History of Present illness Narrative Oncology Nutrition Therapy Progress Note RECOMMENDED MALNUTRITION DIAGNOSIS: NO MALNUTRITION IDENTIFIED Some elements copied from my note on 03/09/2022, have been updated and all reflect current decision making from today, 03/16/2022 Nutrition Intervention: -continue small frequent meals and snacks -continue limiting gas forming foods -continue beano as needed Nutrition Monitoring & Evaluation: -PO Intake -Wt status -Biochemical Markers -Plan of care Date of last encounter: March 09, 2022 Patient met goal(s): Yes Patient's symptoms are: None Pt presents for nutrition counseling follow up. Pt currently being treated with gemzar and abraxane. Pt denies any N/V/D/C. Pt's weight remains stable. Appetite appears good. Intakes are good. Pt states he has started to watch portion sizes of gas forming foods and using beano as needed which he feels has helped. He denies any further nutrition questions/concerns at this time. READINESS TO LEARN Cognitive ability: Alert and oriented Motivation to learn: Interested Family support: Unable to assess - Family not present Instruction provided to: Patient Patient learns best by: Multiple Methods Factors affecting learning: None Physical limitations affecting learning: None Educational materials provided: none this visit Need for Follow up: prn Referred/Supervised by: Josephine Salomon RN/Dr. Maria Alejandra TERAN Billing Type: Re-assess/15 min 1 unit Billed Time: 15 minutes Signed by: Ibis Harvey MS, RDN, LD documented in this encounter [facility] 03-16-2022 Nurse Note Patient states that he has numbness in both hands and arms, he thinks it may be arthritits. Stomach is also queezy . He does states he feels short of breath, also has had some bleeding with brushing teeth and blowing nose. Janet Dotson MA documented in this encounter [facility] 03-16-2022 History of Present illness Narrative PATIENT NAME: Uriel Anderson [facility] NO[facility] [id number] ATTENDING PHYSICIAN: Grace Bess MD DATE OF SERVICE: March 16, 2022 (Elements copied from Dr. Bess's note dated March 09, 2022, have been reviewed and updated where appropriate, and all reflect current assessment and medical decision making during today's encounter, March 16, 2022) CC: Follow up and treatment Diagnosis: 1. T3, and 2, M0 pancreatic cancer. Tumor is 8.1 cm, moderately differentiated adenocarcinoma, tumor invades duodenal wall, peripancreatic soft tissue. Margins were negative. Lymphovascular space invasion was present, perineural invasion was present. Metastatic disease in 7 of 27 lymph nodes. Treatment History: 1. Diagnostic laparoscopy, pancreaticoduodenectomy, hepaticojejunostomy, pancreatico jejunostomy and gastrojejunostomy on December 04, 2019. Operative findings very bulky pancreatic head mass with significant adenopathy. Large SMA lymph node which appeared to be right at the onset of margin and was completed dissected off the SMA. 2. Post op complication and did not receive adjuvant chemo 3. 04/2021: Successful sphincterotomy and dilation of pancreaticojejunostomy stricture and placement of an 8mm covered stent 4. CT 01/2022- recurrence 5. 02/2022 started Gemzar and Abraxane HPI: Mr. Anderson returns for follow up after starting Gemzar/Abraxane last week. Tolerating it well. He reports he had some mild nausea and diarrhea that imodium and antiemetics did help with. He notes that he had some mild bleeding when he brushed his teeth and blew his nose, but no blood in his stools. His energy levels have been about the same and is still mopping floors and doing housework. Denies shortness of breath, dizziness or swelling. Overall he is feeling well and has no new major issues to report PAST MEDICAL HISTORY Diagnosis Date Acute bilateral deep vein thrombosis (DVT) of upper extremities (HCC) Adenocarcinoma of head of pancreas (HCC) Gastric outlet obstruction Obstructive sleep apnea Social History Tobacco Use Smoking status: Former Packs/day: 1.00 Years: 35.00 Pack years: 35.00 Types: Cigarettes Quit date: 2018 Years since quittin.8 Passive exposure: Past Smokeless tobacco: Never Vaping Use Vaping Use: Never used Substance Use Topics Alcohol use: Not Currently Drug use: Never FAMILY HISTORY Problem Relation Age of Onset Anesthesia Problems No Family History Past medical, social and family history reviewed without any changes. REVIEW OF SYSTEMS GENERAL: No weight loss, malaise or fevers. No night sweats. HEENT: Negative for headaches, No changes in hearing or vision, no nose bleeds or other nasal problems. Mild mucositis of gums and nose RESPIRATORY: Negative for cough, wheezing and shortness of breath CARDIOVASCULAR: Negative for chest pain, leg swelling and palpitations GI: Negative for abdominal discomfort, blood in stools or black stools and change in bowel habits : Negative for dysuria, frequency and incontinence MUSCULOSKELETAL: Negative for joint pain or swelling, back pain, and muscle pain. SKIN: Negative for lesions, rash, and itching. HEMATOLOGY/LYMPHOLOGY Negative for prolonged bleeding, bruising easily, and swollen nodes. NEURO: Negative for numbness or tingling of hands/feet. No weakness. PHYSICAL EXAMINATION: BP 143/75 Pulse 70 Temp (Src) 97.8 (Temporal) Resp 16 Ht 5' 6.85 (1.70m) Wt 192 lb 12.8 oz (87.5kg) SpO2 97% BMI 30.33 kg/(m^2). ECOG PERFORMANCE STATUS: 1- Restricted in physically strenuous activity. Carries out light duty. General: Alert and oriented, no distress, pleasant and cooperative. Heart: Regular, normal S1 and S2, no murmurs, rubs, or gallops Lungs: Clear to auscultation bilaterally Abdomen: Benign Extremities: Feet/ankles without edema, posterior tibial pulses full and symmetrical LABS: Glucose (mg/dL) Date Value 03/16/2022 125 02/11/2021 104 Potassium (mmol/L) Date Value 03/16/2022 4.5 02/11/2021 4.0 Sodium (mmol/L) Date Value 03/16/2022 134 02/11/2021 139 Chloride (mmol/L) Date Value 03/16/2022 103 02/11/2021 105 CO2 (mmol/L) Date Value 03/16/2022 26 02/11/2021 25 Creatinine (mg/dL) Date Value 03/16/2022 0.73 02/11/2021 0.49 BUN (mg/dL) Date Value 03/16/2022 16 02/11/2021 6 Anion Gap (mmol/L) Date Value 03/16/2022 5 02/11/2021 9 Calcium (mg/dL) Date Value 02/11/2021 9.5 Calcium, Total (mg/dL) Date Value 03/16/2022 10.0 Protein, Total (g/dL) Date Value 03/16/2022 6.7 02/11/2021 5.5 Albumin (g/dL) Date Value 03/16/2022 4.0 02/11/2021 2.5 Bilirubin, Total (mg/dL) Date Value 03/16/2022 1.0 02/11/2021 0.5 Alkaline Phosphatase (U/L) Date Value 03/16/2022 153 02/11/2021 84 AST (U/L) Date Value 03/16/2022 22 02/11/2021 10 ALT (U/L) Date Value 03/16/2022 27 02/11/2021 9 WBC Date Value Ref Range Status 03/16/2022 3.64 (L) 3.70 - 11.00 k/uL Final RBC Date Value Ref Range Status 03/16/2022 2.52 (L) 4.20 - 6.00 m/uL Final Hemoglobin Date Value Ref Range Status 03/16/2022 8.5 (L) 13.0 - 17.0 g/dL Final Hematocrit Date Value Ref Range Status 03/16/2022 25.4 (L) 39.0 - 51.0 % Final MCV Date Value Ref Range Status 03/16/2022 100.8 (H) 80.0 - 100.0 fL Final MCH Date Value Ref Range Status 03/16/2022 33.7 26.0 - 34.0 pg Final MCHC Date Value Ref Range Status 03/16/2022 33.5 30.5 - 36.0 g/dL Final RDW-CV Date Value Ref Range Status 03/16/2022 14.4 11.5 - 15.0 % Final Platelet Count Date Value Ref Range Status 03/16/2022 174 150 - 400 k/uL Final MPV Date Value Ref Range Status 03/16/2022 10.1 9.0 - 12.7 fL Final Abs Neut Date Value Ref Range Status 03/16/2022 1.88 1.45 - 7.50 k/uL Final Lymph% Date Value Ref Range Status 03/16/2022 37.9 % Final Abs Lymph Date Value Ref Range Status 03/16/2022 1.38 1.00 - 4.00 k/uL Final [place]% Date Value Ref Range Status 03/16/2022 7.7 % Final Abs [place] Date Value Ref Range Status 03/16/2022 0.28 <0.87 k/uL Final Eosin% Date Value Ref Range Status 03/16/2022 1.1 % Final Abs Eosin Date Value Ref Range Status 03/16/2022 0.04 <0.46 k/uL Final Baso% Date Value Ref Range Status 03/16/2022 1.1 % Final Abs Baso Date Value Ref Range Status 03/16/2022 0.04 <0.11 k/uL Final PATH: Whipple on November: SYNOPTIC REPORT OF MANJARREZ PATHOLOGIC FINDINGS WHIPPLE, GALLBLADER, OMENTUM: PANCREAS EXOCRINE WORKSHEET Specimen: Head of pancreas Body of pancreas Duodenum Stomach Common bile duct Gallbladder Procedure: Pancreaticoduodenectomy (Whipple resection), partial pancreatectomy Tumor Site: Pancreatic head Histologic Type: Ductal adenocarcinoma (NOS) Histologic Grade: G2: Moderately differentiated Tumor Size: Greatest dimension: 8.1 cm Microscopic Tumor Extension: Tumor invades duodenal wall Tumor invades peripancreatic soft tissues Tumor invades posterior surface of pancreas Tissue Specimen Type: Pancreaticoduodenal Resection Specimen Margins for Pancreaticoduodenal Resection Specimen: Pancreatic neck/parenchymal margin uninvolved by pancreatic high-grade intraepithelial neoplasia or invasive carcinoma Uncinate (retroperitoneal/superior mesentric artery) margin cannot be assessed Bile duct margin uninvolved by high-grade intraepithelial neoplasia or invasive carcinoma Proximal margin (Gastric or Duodenal) uninvolved by high-grade dysplasia or invasive carcinoma Distal margin (Duodenal or Jejunal) uninvolved by high-grade dysplasia or invasive carcinoma Treatment Effect: No known presurgical therapy Lymphovascular Invasion: Present Perineural Invasion: Present Pathologic Stage Classification (pTNM, AJCC 8th ed) TNM Descriptors: Not applicable Primary Tumor (pT): pT3: Tumor >4 cm in greatest dimension Regional lymph nodes (pN): pN2: Metastasis in four or more regional lymph nodes Number of lymph nodes involved: 7 Number of lymph nodes examined: 27 Distant Metastasis (pM): Not applicable/Not confirmed pathologically in this case Comment: Gallbladder with chronic cholecystitis and cholesterolosis. 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 Large fluid collection in the anterior abdominal wall which visualizes to the skin surface. This collection may arise near the pancreaticojejunostomy. 2. No definite findings to suggest metastatic disease in the abdomen or pelvis. 3. Calcifications within the urinary bladder, nonspecific. A urothelial lesion is not excluded. Consider urologic consultation. CT Pancreas 01/2022: 1. Since 03/15/2021, marked increase in central mesenteric and retroperitoneal lymphadenopathy, suspicious for disease progression. 2. 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 3. Unchanged ill-defined soft tissue surrounding the origin of the celiac artery and common hepatic artery, suspicious for recurrent neoplasm. 4. Status post Whipple procedure. A pancreatic duct stent remains in place. No new pancreatic ductal dilatation. 5. Unchanged heterogeneous attenuation of the pelvic marrow, nonspecific but favored to be secondary to marrow reconversion. Continued attention on subsequent studies is suggested. If warranted, consider further assessment with nuclear medicine bone scan. CT Chest 03/07/2022: 1. Stable appearance of left lower lobe 4 mm nodule. No new or enlarging nodules are visualized. 2. Slight interval increase in size of a superior mediastinal node. No additional bulky intrathoracic adenopathy is seen. 3. Findings of prior granulomatous disease. Assessment and Plan: Uriel Anderson is a 71 year old year old male here for follow up. T3, N2, M0, pancreatic adenocarcinoma. Patient with postoperative complications which precluded adjuvant chemo and did have additional admissions and procedures lastly a stent in the PJ stenosis in 04/2021. His latest CT, 01/2022 with sandy progression and he has recurrence. His initial disease state was very high risk. He was started on [place] and abraxane 03/09/2022 with good tolerance so far. Proceed with cycle 1 day 8 today and see him in 1 week for day 15. He is more anemic today and likely from chemotherapy. Will check basic anemia labs as well. Guardant 360 and tissue based NGS- still pending Medical Cancer genetics- Appointment today Continue nutrition follow up Greta Wetzel PA-C Addendum: infusion nurse called and stated patient told her that he was having worsening of his underlying neuropathy in his hands. Upon further questioning, the patient reports to me that he has been having increased pain and numbness in his fingers, especially his right thumb. He has had neuropathy for a long time and has noticed it worsening about 3-4 weeks ago. He reports it is not worse since starting treatment. Asking for medication to help. Will give trial of gabapentin. Cause of underlying neuropathy is unknown. Also, per Dr. Bess, ok to change patient to 2 weeks on and 1 week off due to poor counts. Patient will be scheduled for cycle 2 in 2 weeks. Greta Wetzel PA-C CC: Giovanni Hamlin MD documented in this encounter [facility] 03-14-2022 Miscellaneous Notes CYCLE 1/DAY 1 POST TREATMENT CALL Today's date: March 14, 2022 Treatment Regimen: gemzar, abraxane [id number] Date: 03/09/22 Called patient to follow-up on symptom management. Spoke with patient SYMPTOM ASSESSMENT Neuro: None CV/Resp: Pt states he's getting a little winded with activity. Pt states he use to go and go and go, but now he gets a little winded and needs to rest. GI/: Appetite: no changes in appetite, appetite good, Nausea once on Monday. Took antiemetic with good relief. Diarrhea: yes, pt states he had a little diarrhea on Monday and this cleared up after a few hours., and pt states he's out to brunch right now and is feeling well. Integument: None Activity: Patient reported no changes in energy level, energy level good Activity Level (0-100%): normal Pain: No=0 (pain 0 on a scale of 0-10). Fever: No Chills: Yes once a few days ago that lasted for a few hours and then went away. None since Any new referrals needed? No Reinforced CURRENT treatment education based on current and anticipated symptoms. Discussed port/line care and patient verbalizes understanding: Yes pt denies concerns with port Patient instructed to contact office or after hours Hematology/Oncology fellow for: temperature ? 100.4; questions or concerns. Patient verbalized understanding of when to seek medical attention and after hours number protocol. Josephine Salomon RN documented in this encounter [facility] 03-10-2022 Miscellaneous Notes Pt's called director of publications physician last night with questions regarding antiemetics. Call placed to pt this morning to review directions of antiemetics with him. Pt verbalized understanding of proper way to take them, and states he doesn't have any nausea at this time and that he feels really good. Explained to pt that weakness/fatigue will set in tomorrow and through the weekend. Pt verbalized understanding of this as well. Denies any further questions at this time and is appreciative of the phone call. Josephine Salomon RN documented in this encounter [facility] 03-09-2022 History of Present illness Narrative PSYCHOSOCIAL ASSESSMENT Date of Service: March 09, 2022 Uriel Andreson is a 71 year old male being seen for initial social work assessment. Diagnosis:Pacreatic Cancer Recurrence Primary Oncologist: Dr. Grace Bess Radiation Oncologist: Unknown Goals of Care: Palliative care Today's visit includes: self/patient Family History of Cancer: not discussed SUPPORT NETWORK: Marital status: Parent(s): Mother is and Father is Child/Children: Yes. How many? 1- biological daughter: 1 step-daughter and 1 step son director of primary care arrangements needed: Na Grandchild(sherman): 3 Home Health Provider: No Community Services: No Candy Identified: No Protestant/Spirituality: Spiritual Are these practices or beliefs that may affect or influence treatment? Unknown EMPLOYMENT/FINANCIAL/HEALTH INSURANCE: Employment: Retired Income source: Social Security Insurance: Medicare with co-insurance Prescription coverage: Yes Is the patient appropriate for referral to [facility] Assistance [facility]? No Financial Distress: No : No FOOD INSECURITY Within the past year, have you worried about how you would buy or obtain food? No LIVING ARRANGEMENTS: Type: House- independent colonial Resides with: Brittni FUNCTIONAL STATUS: Cognitive limitations: none Physical limitations: none Language barrier: No Hearing Impaired: No Speech Impaired: No Visual Impairments: No Special considerations/accommodations needed: No HEALTH LITERACY: Do you have difficulty understanding medical instructions or other written materials you receive from you doctor or pharmacy? No Do have difficulty filling out medical forms by yourself? No The following interventions were put into place: NA MEDICATION ADHERENCE: Within the past 2 weeks, have you had difficulty remembering to take your medicine? Not asked Within the past 2 weeks, did you ever miss taking your medications for reasons other than forgetting? No The following interventions were put into place: NA MENTAL HEALTH HISTORY: No History of combat/trauma: No Substance Use and Treatment History: denied History of Abuse: No Issues with: Sleep:No Eating:No Exercising: No Stress Management: No ADVANCE DIRECTIVES/LEGAL DOCUMENTS: Living Will: Yes Scanned into EPIC: No Health Care Durable Power of Welcome Desk Agent: Yes Scanned into EPIC: No Guardianship: NA Scanned into EPIC:NA Reasons Advanced Directives were not Addressed: NA COPING STATUS: Coping Strengths: supportive relationships with immediate family successful managing past crises strong problem-solving skills ability to plan able to follow direction consistently over time able to communicate effectively Current affect/mood: appropriate History of Loss: Yes, parents Adjustment to diagnosis: reflecting understanding and responding appropriately BARRIERS/CARE CHALLENGES: NA Are barriers/care challenges identified likely to have an impact on the patient's quality of life during treatment? NA INTERVENTIONS/REFERRALS TO BE PROVIDED: Monitor patient response to treatment Continue follow up as needed Resources and Referrals: Internal: NA External: N/A CLINICAL IMPRESSION: Patient is a 71 year old male with pancreatic cancer. Patient lives in [place], [place] with his Brittni Connor . Patient has been to Geeta for 17 years and they dated for 18 years. Patient appears to be alert, oriented, pleasant, calm and cooperative. Patient reports that he has a good social support system. Patient enjoys watching his one grandson play 6th grade sports. SW explained the role of an Oncology SW and provided a handout listing the services offered. Contact information to reach this SW was given. SW will remain available and will follow up as appropriate. Psychosocial Risk Criteria If positive for one or more of the following risk criteria, follow up every 30 days Age: NA Mental Health: NA Practical Needs: N/A PLAN: Follow up PRN Follow up appointment with SW in: [facility] Wright documented in this encounter [facility] 03-09-2022 Miscellaneous Notes Call received from pt's stating they are at [facility] in [place] waiting for pt's nausea medications. Call placed to our pharmacy and scripts will be transferred to [facility] in [place] shortly. Josephine Salomon RN documented in this encounter [facility] 03-09-2022 Miscellaneous Notes Patient assessed today. Patient denies any sign and/or symptoms of fat malabsorption such as bloating, abd pain, floating stools, oily/greasy stools, or puentes colored stools. Pt reported large consumption of gas forming foods. Reviewed with pt dietary strategies to manage gas. At this time I do not think pt requires PERT and pt stated he does not want to take another pill if unnecessary at this time. Ibis Harvey MS, RDN, LD Pt did not bring in his specimen to today's visit. He was provided a specimen cup by treatment nurses. Josephine Salomon RN Call placed to pt's and they will get a specimen cup from daughter (nurse in oncology in [place]) and will refrigerate specimen until his appointment on Monday. Spoke with Alla in lab and this is acceptable. RUBEN: please sign pending order. Thanks Josephine Salomon RN Yes. Thanks Pt does not have any diarrhea, just passing a lot of gas. Do you still want checked for cdiff? Josephine Salomon RN Can we test him for c. Diff as well Pt was in for education today for gemzar, abraxane for pancreatic cancer. Pt states he's having a lot of uncontrollable gas and it's very foul smelling. Pt asking if there's anything he can do different to see if it helps with this. Explained to pt that his diet may be affecting this as well as his cancer. Pt is agreeable to meeting with Thais. Pt has an appointment scheduled with Thais on 03/09. Please advise if other recommendations. Thanks Josephine Salomon RN documented in this encounter [facility] 03-09-2022 Miscellaneous Notes 1st report of treatment-Benefit investigation complete. Patient is active with Medicare, LOC 80%, $233 deductible has $0 remaining. He carries Plan G [employer] supplement which will cover the 20% allowable balances. Estimate shows patient financial responsibility is $0 for each treatment in 2021. Called the patient to discuss, left a voicemail to return call. documented in this encounter [facility] 03-09-2022 History of Present illness Narrative Oncology Nutrition Therapy Initial Assessment RECOMMENDED MALNUTRITION DIAGNOSIS: NO MALNUTRITION IDENTIFIED Nutrition Diagnosis: Food and Nutrition related knowledge deficit related to lack of prior nutrition-related education as evidenced by verbalizes inaccurate or incomplete information OR no prior knowledge of need for [id number] related recommendations Nutrition Intervention: -aim for small frequent meals and snacks -limit gas forming foods -may trial Beano if not avoiding gas forming foods -encouraged adequate hydration -provider contact information provided for further questions/concerns Nutrition Monitoring & Evaluation: -PO Intake -Wt status -BM's -Biochemical Markers -Plan of care Patient's symptoms are: GI: gas Pt presents for nutrition counseling for pancreatic adenocarcinoma who is s/p Whipple 12/04/2019 c/b intraabdominal abscess. Pt is currently being treated with gemzar and abraxane. Pt denies any chewing/swallowing issues, denies current N/V/D/C. Pt denies food allergies/intolerances. Pt c/o gas. Pt denies signs and symptoms of fat malabsorption such as abd pain, bloating, floating stools, oily/greasy stools, and puentes colored stools. Appetite appears to be good, Intakes are good. Pt states I like to eat. Pt does report consuming large amounts of gas forming foods such as cabbage, broccoli, cauliflower, and beans. Reviewed with pt dietary strategies for managing gas and suggested limiting or avoiding gas forming foods. Alternately, discussed with pt if not avoiding these foods could trial Beano when consuming. Pt verbalized understanding. Thank you for allowing me to participate in the care of this pt. Readiness to Learn: Cognitive ability: Alert and oriented Motivation to learn: Interested Family support: Unable to assess - Family not present Instruction provided to: Patient Patient learns best by: Multiple Methods Factors affecting learning: None Physical limitations affecting learning: None Educational materials provided: Creative Eating during Illness and Recovery, Managing Gas Anthropometrics: Height: Last 1 Encounter Ht Readings: Date: Ht: 03/09/2022 172.7 cm (5' 7.99 ) Current weight: Last 1 Encounter Wt Readings: Date: Wt: 03/09/2022 86.3 kg (190 lb 3.2 oz) Estimated body mass index is 28.93 kg/m as calculated from the following: Height as of an earlier encounter on 03/09/22: 172.7 cm (5' 7.99 ). Weight as of an earlier encounter on 03/09/22: 86.3 kg (190 lb 3.2 oz). Resting Metabolic Rate: 1601 Weight Loss: n/a Dosing Weight: 86.3 kg Estimated kilocalorie needs: 2589 kilocalories determined by 30 kcal/kg Estimated protein needs: 86-112 grams determined by 1.0-1.3 g/kg Dosing weight Estimated fluid needs: ~2650-3918 milliliters based on 1 mL per kcal (unless otherwise noted) Nutrition Focused Physical Exam: Unable to perform exam due to patient/family declined, will re-attempt during reassessment. Potential Signs of Inflammation: chronic condition Allergies: Patient has no known allergies. Medications: Current Outpatient Medications Medication Sig Dispense Refill prochlorperazine (COMPAZINE) 10 mg tablet Take 1 tablet by mouth every 6 hours as needed. 100 tablet 2 ondansetron (ZOFRAN) 8 mg tablet Take 1 tablet by mouth every 8 hours as needed for nausea/vomiting. 90 tablet 2 tamsulosin (FLOMAX) 0.4 mg Take 0.4 mg by mouth once daily. cholecalciferol, vitamin D3, (VITAMIN D3 ORAL) Take 1,000 Units by mouth once daily. ZINC ORAL Take 50 mcg by mouth once daily. multivit-min/ferrous fumarate (MULTI VITAMIN ORAL) Take by mouth once daily. finasteride (PROSCAR) 5 mg tablet Take 5 mg by mouth once daily. pantoprazole DR (PROTONIX) 20 mg tablet Take 1 tablet by mouth once daily. 30 tablet 5 No current facility-administered medications for this visit. Facility-Administered Medications Ordered in Other Visits Medication Dose Route Frequency Provider Last Rate Last Admin fentaNYL 50 mcg/mL injection (SUBLIMAZE) INTRAVENOUS PRN LEE Sutton Need for Follow up: will continue to follow Referred/Supervised by: Josephine Salomon RN/Dr. Maria Alejandra TERAN Billing Type: Initial Assess/15 min 2 units Time Spent with Patient: 30 minutes Signed by: Ibis Harvey MS, RDN, LD documented in this encounter [facility] 03-09-2022 History of Present illness Narrative PATIENT NAME: Uriel Anderson [facility] NO.: [id number] ATTENDING PHYSICIAN: Grace Bess MD DATE OF SERVICE: March 09, 2022 Some of the elements of this note have been copied from my previous progress note dated 02/22/2022. All the information has been reviewed carefully. Dear Dr. Hamlin here is an update on a follow up visit on male Uriel Anderson at the clinic March 09, 2022 Diagnosis: 1. T3, and 2, M0 pancreatic cancer. Tumor is 8.1 cm, moderately differentiated adenocarcinoma, tumor invades duodenal wall, peripancreatic soft tissue. Margins were negative. Lymphovascular space invasion was present, perineural invasion was present. Metastatic disease in 7 of 27 lymph nodes. Treatment History: 1. Diagnostic laparoscopy, pancreaticoduodenectomy, hepaticojejunostomy, pancreatico jejunostomy and gastrojejunostomy on December 04, 2019. Operative findings very bulky pancreatic head mass with significant adenopathy. Large SMA lymph node which appeared to be right at the onset of margin and was completed dissected off the SMA. 2. Post op complication and did not receive adjuvant chemo 3. 04/2021: Successful sphincterotomy and dilation of pancreaticojejunostomy stricture and placement of an 8mm covered stent 4. CT 01/2022- recurrence HPI: Uriel Anderson is a 71 year old year old male here for follow up. Here to start chemo and doing well. 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 PAST MEDICAL HISTORY Diagnosis Date Acute bilateral deep vein thrombosis (DVT) of upper extremities (HCC) Adenocarcinoma of head of pancreas (HCC) Gastric outlet obstruction Obstructive sleep apnea Social History Tobacco Use Smoking status: Former Packs/day: 1.00 Years: 35.00 Pack years: 35.00 Types: Cigarettes Quit date: 2019 Years since quittin.8 Passive exposure: Past Smokeless tobacco: Never Vaping Use Vaping Use: Never used Substance Use Topics Alcohol use: Not Currently Drug use: Never FAMILY HISTORY Problem Relation Age of Onset Anesthesia Problems No Family History Past medical, social and family history reviewed without any changes. REVIEW OF SYSTEMS GENERAL: No weight loss, malaise or fevers. No night sweats. HEENT: Negative for headaches, No changes in hearing or vision, no nose bleeds or other nasal problems. RESPIRATORY: Negative for cough, wheezing and shortness of breath CARDIOVASCULAR: Negative for chest pain, leg swelling and palpitations GI: Negative for abdominal discomfort, blood in stools or black stools and change in bowel habits : Negative for dysuria, frequency and incontinence MUSCULOSKELETAL: Negative for joint pain or swelling, back pain, and muscle pain. SKIN: Negative for lesions, rash, and itching. HEMATOLOGY/LYMPHOLOGY Negative for prolonged bleeding, bruising easily, and swollen nodes. NEURO: Negative for numbness or tingling of hands/feet. No weakness. PHYSICAL EXAMINATION: BP 143/66 Pulse 70 Temp (Src) 97.5 (Temporal) Resp 16 Ht 5' 7.992 (1.73m) Wt 190 lb 3.2 oz (86.3kg) SpO2 98% BMI 28.93 kg/(m^2). Wt 79.4 kg (175 lb) BMI 26.61 kg/m2 Last 3 Encounter Wt Readings: Date: Wt: 03/06/2020 79.4 kg (175 lb) 02/14/2020 84.9 kg (187 lb 2.7 oz) 02/14/2020 82.2 kg (181 lb 3.2 oz) General appearance:ECOG PERFORMANCE STATUS: 1- Restricted in physically strenuous activity. Carries out light duty. Patient in NAD. Skin: Skin color, texture, turgor normal. No rashes or lesions. Eyes: Anicteric sclera. Pupils are equally round and reactive to light. Extraocular movements are intact. Lymph Nodes: No cervical, supraclavicular, axillary or inguinal adenopathy. Oropharynx: Lips, mucosa, and tongue normal. Back: No pain to percussion. Negative SLR test Lungs clear to auscultation, No wheezing or rhonchi Heart: RRR without murmur, gallop, or rubs. Abdomen: Abdomen is soft but there is purulent drainage from around the pigtail catheter as well as the laparoscopic ports. Minimal tenderness. No rebound or guarding. Extremities: No deformities. No edema Neuro: Gait and speech normal. Reflexes normal and symmetric. Muscular strength intact. Sensation grossly intact. Rectal: Deferred : Deferred LABS: Glucose (mg/dL) Date Value 03/07/2022 113 02/11/2021 104 Potassium (mmol/L) Date Value 03/07/2022 4.6 02/11/2021 4.0 Sodium (mmol/L) Date Value 03/07/2022 136 02/11/2021 139 Chloride (mmol/L) Date Value 03/07/2022 102 02/11/2021 105 CO2 (mmol/L) Date Value 03/07/2022 26 02/11/2021 25 Creatinine (mg/dL) Date Value 03/07/2022 0.72 02/11/2021 0.49 BUN (mg/dL) Date Value 03/07/2022 18 02/11/2021 6 Anion Gap (mmol/L) Date Value 03/07/2022 8 02/11/2021 9 Calcium (mg/dL) Date Value 02/11/2021 9.5 Calcium, Total (mg/dL) Date Value 03/07/2022 10.1 Protein, Total (g/dL) Date Value 03/07/2022 7.0 02/11/2021 5.5 Albumin (g/dL) Date Value 03/07/2022 4.1 02/11/2021 2.5 Bilirubin, Total (mg/dL) Date Value 03/07/2022 1.1 02/11/2021 0.5 Alkaline Phosphatase (U/L) Date Value 03/07/2022 160 02/11/2021 84 AST (U/L) Date Value 03/07/2022 20 02/11/2021 10 ALT (U/L) Date Value 03/07/2022 20 02/11/2021 9 WBC Date Value Ref Range Status 03/07/2022 10.76 3.70 - 11.00 k/uL Final RBC Date Value Ref Range Status 03/07/2022 3.32 (L) 4.20 - 6.00 m/uL Final Hemoglobin Date Value Ref Range Status 03/07/2022 11.0 (L) 13.0 - 17.0 g/dL Final Hematocrit Date Value Ref Range Status 03/07/2022 33.4 (L) 39.0 - 51.0 % Final MCV Date Value Ref Range Status 03/07/2022 100.6 (H) 80.0 - 100.0 fL Final MCH Date Value Ref Range Status 03/07/2022 33.1 26.0 - 34.0 pg Final MCHC Date Value Ref Range Status 03/07/2022 32.9 30.5 - 36.0 g/dL Final RDW-CV Date Value Ref Range Status 03/07/2022 14.6 11.5 - 15.0 % Final Platelet Count Date Value Ref Range Status 03/07/2022 257 150 - 400 k/uL Final MPV Date Value Ref Range Status 03/07/2022 9.5 9.0 - 12.7 fL Final Abs Neut Date Value Ref Range Status 03/07/2022 8.16 (H) 1.45 - 7.50 k/uL Final Lymph% Date Value Ref Range Status 03/07/2022 16.4 % Final Abs Lymph Date Value Ref Range Status 03/07/2022 1.76 1.00 - 4.00 k/uL Final [place]% Date Value Ref Range Status 03/07/2022 6.4 % Final Abs [place] Date Value Ref Range Status 03/07/2022 0.69 <0.87 k/uL Final Eosin% Date Value Ref Range Status 03/07/2022 0.8 % Final Abs Eosin Date Value Ref Range Status 03/07/2022 0.09 <0.46 k/uL Final Baso% Date Value Ref Range Status 03/07/2022 0.3 % Final Abs Baso Date Value Ref Range Status 03/07/2022 0.03 <0.11 k/uL Final PATH: Whipple on November: SYNOPTIC REPORT OF MANJARREZ PATHOLOGIC FINDINGS ABDOULAYE MARTELR, OMENTUM: PANCREAS EXOCRINE WORKSHEET Specimen: Head of pancreas Body of pancreas Duodenum Stomach Common bile duct Gallbladder Procedure: Pancreaticoduodenectomy (Whipple resection), partial pancreatectomy Tumor Site: Pancreatic head Histologic Type: Ductal adenocarcinoma (NOS) Histologic Grade: G2: Moderately differentiated Tumor Size: Greatest dimension: 8.1 cm Microscopic Tumor Extension: Tumor invades duodenal wall Tumor invades peripancreatic soft tissues Tumor invades posterior surface of pancreas Tissue Specimen Type: Pancreaticoduodenal Resection Specimen Margins for Pancreaticoduodenal Resection Specimen: Pancreatic neck/parenchymal margin uninvolved by pancreatic high-grade intraepithelial neoplasia or invasive carcinoma Uncinate (retroperitoneal/superior mesentric artery) margin cannot be assessed Bile duct margin uninvolved by high-grade intraepithelial neoplasia or invasive carcinoma Proximal margin (Gastric or Duodenal) uninvolved by high-grade dysplasia or invasive carcinoma Distal margin (Duodenal or Jejunal) uninvolved by high-grade dysplasia or invasive carcinoma Treatment Effect: No known presurgical therapy Lymphovascular Invasion: Present Perineural Invasion: Present Pathologic Stage Classification (pTNM, AJCC 8th ed) TNM Descriptors: Not applicable Primary Tumor (pT): pT3: Tumor >4 cm in greatest dimension Regional lymph nodes (pN): pN2: Metastasis in four or more regional lymph nodes Number of lymph nodes involved: 7 Number of lymph nodes examined: 27 Distant Metastasis (pM): Not applicable/Not confirmed pathologically in this case Comment: Gallbladder with chronic cholecystitis and cholesterolosis. 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 Large fluid collection in the anterior abdominal wall which visualizes to the skin surface. This collection may arise near the pancreaticojejunostomy. 2. No definite findings to suggest metastatic disease in the abdomen or pelvis. 3. Calcifications within the urinary bladder, nonspecific. A urothelial lesion is not excluded. Consider urologic consultation. CT Pancreas 01/2022: 1. Since 03/15/2021, marked increase in central mesenteric and retroperitoneal lymphadenopathy, suspicious for disease progression. 2. 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 3. Unchanged ill-defined soft tissue surrounding the origin of the celiac artery and common hepatic artery, suspicious for recurrent neoplasm. 4. Status post Whipple procedure. A pancreatic duct stent remains in place. No new pancreatic ductal dilatation. 5. Unchanged heterogeneous attenuation of the pelvic marrow, nonspecific but favored to be secondary to marrow reconversion. Continued attention on subsequent studies is suggested. If warranted, consider further assessment with nuclear medicine bone scan. Assessment and Plan: Uriel Anderson is a 71 year old year old male here for follow up. T3, N2, M0, pancreatic adenocarcinoma. Patient with postoperative complications which precluded adjuvant chemo and did have additional admissions and procedures lastly a stent in the PJ stenosis in 04/2021. His latest CT, 01/2022 with sandy progression and he has recurrence. His initial disease state was very high risk. Patient here to start [place] and Abraxane. Discussed AE again and he wishes to proceed. Guardant 360 and tissue based NGS- pending Medical Cancer genetics- Appontment pending Continue nutrition follow up See back in 1 week for day 8 Thank you for the kind referral. If there are any questions and or concerns please do not hesitate to contact me at [phone]. Grace Bess MD Hematology/Medical Oncology [facility] CC: Giovanni Hamlin MD I spent a total of 30 minutes on the date of the service which included preparing to see the patient, [id number] patient care, completing clinical documentation, obtaining and/or reviewing separately obtained history, performing a medically appropriate examination, counseling and educating the patient/family/caregiver, ordering medications, tests, or procedures, and independently interpreting results (not separately reported). documented in this encounter [facility] 03-07-2022 History of Present illness Narrative ONCOLOGY PATIENT EDUCATION NOTE TOPIC: Chemotherapy, Medications: gemzar, abraxane READINESS TO LEARN: COGNITIVE ABILITY: Alert and oriented MOTIVATION TO LEARN: Interested FAMILY SUPPORT: High - Very involved in pt care INSTRUCTION PROVIDED TO: Patient and Spouse INSTRUCTION PROVIDED BY: Nurse Coordinator and Pharmacist PATIENT LEARNS BEST BY: Multiple Methods FACTORS AFFECTING LEARNING: None PHYSICAL LIMITATIONS AFFECTING LEARNING: None LEARNING RESPONSE DIAGNOSIS: pancreatic cancer METHOD OF INSTRUCTION: Individual instruction Written instruction - handouts Verbal instruction PATIENT/FAMILY RESPONSE: Verbalizes understanding of: CHEMOTHERAPY-Regimen, toxicity and side effects INFECTION MANAGEMENT-Signs and symptoms of an infection and importance of contacting the physician MEDICAL REGIMEN-Importance of following prescribed medical regimen MEDICATION PRESCRIBED-Accurate knowledge of prescribed medication prior to discharge MEDICATION ROUTE-Correct route for administration of the prescribed medication MEDICATION SIDE EFFECTS-Side effects associated with the medication that warrant a call to the physician PATIENT SAFETY PRINCIPLES SYMPTOM MANAGEMENT-Correct actions to take to manage symptoms associated with his/her disease/illness WORSENING CONDITION-Signs and symptoms of a worsening condition that warrant a call to the physician Information received as demonstrated by interest and questions FOLLOW UP PLAN: Patient instructed to call with any further issues Recommend - Recommend continued instruction and follow up as directed Follow up phone call. Contact information given. SUPPLEMENTAL MATERIAL: Written material was provided at this visit with the following information: - Chemotherapy education was provided by a pharmacist YES - Side effect management information was provided/discussed including but not limited to: abdominal discomfort, anemia, appetite changes, arthralgia, bowel habit changes, chest pain, diet, electrolyte disturbances, fatigue, fluid retention, hair loss, headache, hypersensitivity reaction, infection, myalgia, nausea/vomitting, neutropenia, peripheral edema, peripheral neuropathy, rash, risk for DVT, shortness of breath, skin changes, taste changes, thrombocytopenia, avoiding grapefruit YES - Provided important phone numbers and contacts during and after hours. YES - Provided information on symptoms that require immediate assistance. YES - Provided Chemotherapy when to call handouts YES - Preventing infection. YES - Treatment schedule and confirmation of appointment times. YES - Available support groups. NA - The importance of contraception during the course of chemotherapy NA - Prescriptions for anti-emetics or treatment prep was given: Compazine and Zofran. YES - Neutropenic fever protocol discussed with patient, which included the importance of reporting any fever of 100.4F (38.0C) or greater to the healthcare team as noted on the provided wallet card and/or magnet. YES Time Spent: 45 minutes REFERRAL (RECOMMENDATION): will place referral to [facility] and will ask Diana to see pt when he's here for treatment. Josephine Salomon RN documented in this encounter [facility] 03-04-2022 Miscellaneous Notes Pt will be in for education Monday. Please sign pending antiemetics for gem/abraxane. Thanks Josephine Salomon RN documented in this encounter [facility] 02-25-2022 Miscellaneous Notes You are scheduled for a Mediport Placement, On 03/02/2022. You are to arrive at 12:30 pm and Report to [facility] for Sedation Cases: [facility]: Enter through [facility] entrance. Proceed to the 2nd floor Surgical Services Desk for check in. You can expect to be here for 3-6 hours. Diet: Do not eat any solid food after MIDNIGHT the day of/night before your procedure. You may drink clear liquids until 11:30 am, which means black coffee, apple juice, black tea, or water only. . Medications: Ok to take your cardiac, blood pressure, anti-seizure, and chronic pain medications with a sip of water, please take prior to arrival. Bring your current medication list. Labs: Lab-work needs to be drawn? Yes, labs need to be drawn at least one day prior to procedure. Please bring a copy of the results if they are not done at a [facility] facility. . Zoology Teacher/Transportation: How will you be arriving for your procedure? Private car. You will need a responsible adult to accompany you to and from the procedure. Your telephone directory distributor driver is required to stay with you until you are taken into the procedure room. If you have any questions please call [phone] documented in this encounter [facility] 02-22-2022 Miscellaneous Notes Patient's appointments have been cancelled. Marina Macias Images from the original note were not included. Fara Monaco MD You; Isabel Chase; Arabella Morrison RN 1 hour ago (2:55 PM) Yes can cancel Pt notified and is happy to hear this. PSS: please cancel pt's upcoming appointment with Dr Monaco. Thanks Josephine Salomon RN Pt was in the office today and saw Dr Bess. Pt will be starting gem/abraxane on 03/07. Pt asking if there is a need to keep his appointment with Dr Monaco this ? He would like to cancel it if possible. Please advise Thanks, Josephine Salomon RN documented in this encounter [facility] 02-22-2022 Miscellaneous Notes Pt saw Dr Bess this morning and has several questions at checkout regarding treatment. Questions answered and reassurance given. Josephine Salomon RN documented in this encounter [facility] 02-22-2022 History of Present illness Narrative PATIENT NAME: Uriel Anderson [facility] NO.: [id number] ATTENDING PHYSICIAN: Grace Bess MD DATE OF SERVICE: February 22, 2022 Some of the elements of this note have been copied from my previous progress note dated 03/20/2020. All the information has been reviewed carefully. Dear Dr. Hamlin here is an update on a follow up visit on male Uriel Anderson at the clinic February 22, 2022 Diagnosis: 1. T3, and 2, M0 pancreatic cancer. Tumor is 8.1 cm, moderately differentiated adenocarcinoma, tumor invades duodenal wall, peripancreatic soft tissue. Margins were negative. Lymphovascular space invasion was present, perineural invasion was present. Metastatic disease in 7 of 27 lymph nodes. Treatment History: 1. Diagnostic laparoscopy, pancreaticoduodenectomy, hepaticojejunostomy, pancreatico jejunostomy and gastrojejunostomy on December 04, 2019. Operative findings very bulky pancreatic head mass with significant adenopathy. Large SMA lymph node which appeared to be right at the onset of margin and was completed dissected off the SMA. 2. Post op complication and did not receive adjuvant chemo 3. 04/2021: Successful sphincterotomy and dilation of pancreaticojejunostomy stricture and placement of an 8mm covered stent 4. CT 01/2022- recurrence HPI: Uriel Anderson is a 71 year old year old male here for follow up. I had last seen him in clinic 03/20/2020 and he did not get adjuvant chemo due to post op complications. He has been doing better and was being followed by Dr. Hamlin. He developed a PJ stricture and on 04/2021 underwent a sphincterotomy and dilitation and a stent placement He had routine follow up with Dr. Laureano and CT 01/2022 with recurrence and hence he is here for follow up. Doing reasonably well and eating well and denies any fevers and or chills. PAST MEDICAL HISTORY Diagnosis Date Acute bilateral deep vein thrombosis (DVT) of upper extremities (HCC) Adenocarcinoma of head of pancreas (HCC) Gastric outlet obstruction Obstructive sleep apnea Social History Tobacco Use Smoking status: Former Packs/day: 1.00 Years: 35.00 Pack years: 35.00 Types: Cigarettes Quit date: 2018 Years since quittin.7 Smokeless tobacco: Never Vaping Use Vaping Use: Never used Substance Use Topics Alcohol use: Not Currently Drug use: Never FAMILY HISTORY Problem Relation Age of Onset Anesthesia Problems No Family History Past medical, social and family history reviewed without any changes. REVIEW OF SYSTEMS GENERAL: No weight loss, malaise or fevers. No night sweats. HEENT: Negative for headaches, No changes in hearing or vision, no nose bleeds or other nasal problems. RESPIRATORY: Negative for cough, wheezing and shortness of breath CARDIOVASCULAR: Negative for chest pain, leg swelling and palpitations GI: Negative for abdominal discomfort, blood in stools or black stools and change in bowel habits : Negative for dysuria, frequency and incontinence MUSCULOSKELETAL: Negative for joint pain or swelling, back pain, and muscle pain. SKIN: Negative for lesions, rash, and itching. HEMATOLOGY/LYMPHOLOGY Negative for prolonged bleeding, bruising easily, and swollen nodes. NEURO: Negative for numbness or tingling of hands/feet. No weakness. PHYSICAL EXAMINATION: BP 135/73 Pulse 70 Temp (Src) 98 (Temporal) Resp 16 Ht 5' 7.992 (1.73m) Wt 190 lb 9.6 oz (86.5kg) SpO2 99% BMI 28.99 kg/(m^2). Wt 79.4 kg (175 lb) BMI 26.61 kg/m2 Last 3 Encounter Wt Readings: Date: Wt: 03/06/2020 79.4 kg (175 lb) 02/14/2020 84.9 kg (187 lb 2.7 oz) 02/14/2020 82.2 kg (181 lb 3.2 oz) General appearance:ECOG PERFORMANCE STATUS: 1- Restricted in physically strenuous activity. Carries out light duty. Patient in NAD. Skin: Skin color, texture, turgor normal. No rashes or lesions. Eyes: Anicteric sclera. Pupils are equally round and reactive to light. Extraocular movements are intact. Lymph Nodes: No cervical, supraclavicular, axillary or inguinal adenopathy. Oropharynx: Lips, mucosa, and tongue normal. Back: No pain to percussion. Negative SLR test Lungs clear to auscultation, No wheezing or rhonchi Heart: RRR without murmur, gallop, or rubs. Abdomen: Abdomen is soft but there is purulent drainage from around the pigtail catheter as well as the laparoscopic ports. Minimal tenderness. No rebound or guarding. Extremities: No deformities. No edema Neuro: Gait and speech normal. Reflexes normal and symmetric. Muscular strength intact. Sensation grossly intact. Rectal: Deferred : Deferred LABS: Glucose (mg/dL) Date Value 02/11/2021 104 Potassium (mmol/L) Date Value 02/11/2021 4.0 Sodium (mmol/L) Date Value 02/11/2021 139 Chloride (mmol/L) Date Value 02/11/2021 105 CO2 (mmol/L) Date Value 02/11/2021 25 Creatinine (mg/dL) Date Value 02/15/2022 0.74 02/11/2021 0.49 BUN (mg/dL) Date Value 02/11/2021 6 Anion Gap (mmol/L) Date Value 02/11/2021 9 Calcium (mg/dL) Date Value 02/11/2021 9.5 Protein, Total (g/dL) Date Value 02/11/2021 5.5 Albumin (g/dL) Date Value 02/11/2021 2.5 Bilirubin, Total (mg/dL) Date Value 02/11/2021 0.5 Alkaline Phosphatase (U/L) Date Value 02/11/2021 84 AST (U/L) Date Value 02/11/2021 10 ALT (U/L) Date Value 02/11/2021 9 WBC Date Value Ref Range Status 02/11/2021 8.84 3.70 - 11.00 k/uL Final RBC Date Value Ref Range Status 02/11/2021 2.99 (L) 4.20 - 6.00 m/uL Final Hemoglobin Date Value Ref Range Status 02/11/2021 9.1 (L) 13.0 - 17.0 g/dL Final Hematocrit Date Value Ref Range Status 02/11/2021 28.1 (L) 39.0 - 51.0 % Final MCV Date Value Ref Range Status 02/11/2021 94.0 80.0 - 100.0 fL Final MCH Date Value Ref Range Status 02/11/2021 30.4 26.0 - 34.0 pG Final MCHC Date Value Ref Range Status 02/11/2021 32.4 30.5 - 36.0 g/dL Final RDW-CV Date Value Ref Range Status 02/11/2021 14.0 11.5 - 15.0 % Final Platelet Count Date Value Ref Range Status 02/11/2021 264 150 - 400 k/uL Final MPV Date Value Ref Range Status 02/11/2021 9.6 9.0 - 12.7 fL Final Abs Neut (ANC) Date Value Ref Range Status 02/05/2021 23.96 (H) 1.45 - 7.50 k/uL Final Lymph% Date Value Ref Range Status 02/05/2021 2.1 % Final Abs Lymph Date Value Ref Range Status 02/05/2021 0.55 (L) 1.00 - 4.00 k/uL Final [place]% Date Value Ref Range Status 02/05/2021 4.9 % Final Abs [place] Date Value Ref Range Status 02/05/2021 1.27 (H) <0.87 k/uL Final Abs Eosin Date Value Ref Range Status 02/05/2021 <0.03 <0.46 k/uL Final Baso% Date Value Ref Range Status 02/05/2021 0.2 % Final Abs Baso Date Value Ref Range Status 02/05/2021 0.06 <0.11 k/uL Final PATH: Whipple on November: SYNOPTIC REPORT OF MANJARREZ PATHOLOGIC FINDINGS TAHMINA, GALLBLADER, OMENTUM: PANCREAS EXOCRINE WORKSHEET Specimen: Head of pancreas Body of pancreas Duodenum Stomach Common bile duct Gallbladder Procedure: Pancreaticoduodenectomy (Whipple resection), partial pancreatectomy Tumor Site: Pancreatic head Histologic Type: Ductal adenocarcinoma (NOS) Histologic Grade: G2: Moderately differentiated Tumor Size: Greatest dimension: 8.1 cm Microscopic Tumor Extension: Tumor invades duodenal wall Tumor invades peripancreatic soft tissues Tumor invades posterior surface of pancreas Tissue Specimen Type: Pancreaticoduodenal Resection Specimen Margins for Pancreaticoduodenal Resection Specimen: Pancreatic neck/parenchymal margin uninvolved by pancreatic high-grade intraepithelial neoplasia or invasive carcinoma Uncinate (retroperitoneal/superior mesentric artery) margin cannot be assessed Bile duct margin uninvolved by high-grade intraepithelial neoplasia or invasive carcinoma Proximal margin (Gastric or Duodenal) uninvolved by high-grade dysplasia or invasive carcinoma Distal margin (Duodenal or Jejunal) uninvolved by high-grade dysplasia or invasive carcinoma Treatment Effect: No known presurgical therapy Lymphovascular Invasion: Present Perineural Invasion: Present Pathologic Stage Classification (pTNM, AJCC 8th ed) TNM Descriptors: Not applicable Primary Tumor (pT): pT3: Tumor >4 cm in greatest dimension Regional lymph nodes (pN): pN2: Metastasis in four or more regional lymph nodes Number of lymph nodes involved: 7 Number of lymph nodes examined: 27 Distant Metastasis (pM): Not applicable/Not confirmed pathologically in this case Comment: Gallbladder with chronic cholecystitis and cholesterolosis. 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 Large fluid collection in the anterior abdominal wall which visualizes to the skin surface. This collection may arise near the pancreaticojejunostomy. 2. No definite findings to suggest metastatic disease in the abdomen or pelvis. 3. Calcifications within the urinary bladder, nonspecific. A urothelial lesion is not excluded. Consider urologic consultation. CT Pancreas 01/2022: 1. Since 03/15/2021, marked increase in central mesenteric and retroperitoneal lymphadenopathy, suspicious for disease progression. 2. 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 3. Unchanged ill-defined soft tissue surrounding the origin of the celiac artery and common hepatic artery, suspicious for recurrent neoplasm. 4. Status post Whipple procedure. A pancreatic duct stent remains in place. No new pancreatic ductal dilatation. 5. Unchanged heterogeneous attenuation of the pelvic marrow, nonspecific but favored to be secondary to marrow reconversion. Continued attention on subsequent studies is suggested. If warranted, consider further assessment with nuclear medicine bone scan. Assessment and Plan: Uriel Anderson is a 71 year old year old male here for follow up. T3, N2, M0, pancreatic adenocarcinoma. Patient with postoperative complications which precluded adjuvant chemo and did have additional admissions and procedures lastly a stent in the PJ stenosis in 04/2021. His latest VT with sandy progression and he has recurrence. His initial disease state was very high risk. Discussed these findings with the patient and his . Discussed that there are no surgical options and that he will need systemic therapy at this time. Discussed [place] and Abraxane based on the IMPACT trial and also the toxicity, Refer to Port placement Guardant 360 and tissue based NGS Refer to Medical Cancer genetics Refer to Nutrition Chemo teach Start therapy in 2 weeks Thank you for the kind referral. If there are any questions and or concerns please do not hesitate to contact me at [phone]. Grace Bess MD Hematology/Medical Oncology [facility] CC: Giovanni Hamlin MD I spent a total of 55 minutes on the date of the service which included preparing to see the patient, [id number] patient care, completing clinical documentation, obtaining and/or reviewing separately obtained history, performing a medically appropriate examination, counseling and educating the patient/family/caregiver, ordering medications, tests, or procedures, and independently interpreting results (not separately reported). documented in this encounter [facility] 02-22-2022 Nurse Note Patient states that fingers and hands are numb and tingling-his right side seems worse then left, his toes also feel similar but states that they have improved. Patient also states he wonders if he has a pinched nerve on right arm he states he used to be able to throw the basketball into hoop now he cannot do the motion. Janet Dotson MA documented in this encounter [facility] 02-18-2022 History of Present illness Narrative AMBULATORY TELEPHONE VISIT Uriel Anderson has consented to this telephone encounter. Persons Present: patient Chief Complaint/Reason: Discussed CT scan results HPI: Feels overall well Data Reviewed: Most recent imaging Assessment: No diagnosis found. Recurrence of pancreatic adenocarcinoma Plan: I reviewed the patient's CT scan. Findings are very worrisome for recurrence. He already has an appointment to follow-up with medical oncology. We will continue to follow. He may not need a visit with me next week, will cancel after his medical oncology appointment. His CT also notes a metal stent in his pancreas. Will discuss with Dr. Manriquez but I do not believe there is anything to do at this point. Total Time Spent: 20 minutes Fara Monaco MD documented in this encounter [facility] 02-10-[address] Pancreas scheduled on 02/15/2022 Review and advise on plan of care. Stage III T3N2 pancreatic adenocarcinoma who is s/p Whipple 12/04/2019 c/b intraabdominal abscess. Last imaging 03/15/2021 MRI Pancreas d/t covered metal stent not compatible with MRI 10/22/2021 s/p ERCP with Dr. Eyad Manriquez The of the patient would like to know if an appointment can be set up or needed to see Dr. Monaco. They would like to come before the winter months. Please call [phone]. documented in this encounter [facility] 10-22-2021 Nurse Note Patient requesting to leave earlier than [address] Manriquez notified. AMBULATORY PATIENT EDUCATION NOTE TOPIC: GI PROCEDURES: Endoscopic Retrograde CholangioPancreatography(ERCP) with or without biopsy,stenting,dilation and/or treatment READINESS TO LEARN INSTRUCTION PROVIDED TO: Patient, readness to learn accessed prior to procedure and Family member COGNITIVE ABILITY: Alert and oriented PTED MOTIVATION TO LEARN: Eager Interested FAMILY SUPPORT: High - Very involved in pt care IPATIENT LEARNS BEST BY: Individual Instruction Written Instruction - Hand-outs Verbal Instruction FACTORS AFFECTING LEARNING: None PHYSICAL LIMITATIONS AFFECTING LEARNING: None LEARNING RESPONSE METHOD OF INSTRUCTION: Individual instruction PATIENT / FAMILY RESPONSE: Verbalizes understanding of: WORSENING CONDITION-Signs and symptoms of a worsening condition that warrant a call to the physician FOLLOW-UP PLAN: Patient instructed to call with any further issues Recommend - Recommend continued instruction and follow up as directed Contact information given. SUPPLEMENTAL MATERIAL: Procedure Discharge Instructions REFERRAL (RECOMMENDATION): None documented in this encounter [facility] 08-10-[address] 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 Is there any issue with pt having xray? Ph. 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 DDSI documented in this encounter [facility] 03-23-2020 Note [id number] [facility] 03-09-2020 History of Past i llness Narrative Problem Noted Date Resolved Date Sepsis 03/09/2020 03/13/2020 Obesity, Class II, BMI 35-39.9 12/06/2019 1 07/09/2019 documented as of this encounter (statuses as of 08/10/2021) [address]19-2020 History of Past illness Narrative* Problem Noted Date Resolved Date Sepsis 03/09/2020 03/13/2020 Obesity, Class II, BMI 35-39.9 12/06/2019 1 07/09/2019 documented as of this encounter (statuses as of 10/23/2021) [facility] History of Past illness Narrative* Problem Noted Date Resolved Date Sepsis 03/09/2020 03/13/2020 Obesity, Class II, BMI 35-39.9 12/06/2019 1 07/09/2019 documented as of this encounter (statuses as of 02/08/2022) [facility] History of Past illness Narrative* Problem Noted Date Resolved Date Sepsis 03/09/2020 03/13/2020 Obesity, Class II, BMI 35-39.9 12/06/2019 1 07/09/2019 documented as of this encounter (statuses as of 02/10/2022) [address]19-2020 History of Past illness Narrative* Problem Noted Date Resolved Date Sepsis 03/09/2020 03/13/2020 Obesity, Class II, BMI 35-39.9 12/06/2019 1 07/09/2019 documented as of this encounter (statuses as of 02/18/2022) [facility] History of Past illness Narrative* Problem Noted Date Resolved Date Sepsis 03/09/2020 03/13/2020 Obesity, Class II, BMI 35-39.9 12/06/2019 1 07/09/2019 documented as of this encounter (statuses as of 02/22/2022) [address]19-2020 History of Past illness Narrative* Problem Noted Date Resolved Date Sepsis 03/09/2020 03/13/2020 Obesity, Class II, BMI 35-39.9 12/06/2019 1 07/09/2019 documented as of this encounter (statuses as of 02/23/2022) [address]19-2020 History of Past illness Narrative* Problem Noted Date Resolved Date Sepsis 03/09/2020 03/13/2020 Obesity, Class II, BMI 35-39.9 12/06/2019 1 07/09/2019 documented as of this encounter (statuses as of 02/25/2022) [facility] History of Past illness Narrative* Problem Noted Date Resolved Date Sepsis 03/09/2020 03/13/2020 Obesity, Class II, BMI 35-39.9 12/06/2019 1 07/09/2019 documented as of this encounter (statuses as of 02/28/2022) [facility] History of Past illness Narrative* Problem Noted Date Resolved Date Sepsis 03/09/2020 03/13/2020 Obesity, Class II, BMI 35-39.9 12/06/2019 1 07/09/2019 documented as of this encounter (statuses as of 03/07/2022) [facility] History of Past illness Narrative* Problem Noted Date Resolved Date Sepsis 03/09/2020 03/13/2020 Obesity, Class II, BMI 35-39.9 12/06/2019 1 07/09/2019 documented as of this encounter (statuses as of 03/07/2022) [facility] History of Past illness Narrative* Problem Noted Date Resolved Date Sepsis 03/09/2020 03/13/2020 Obesity, Class II, BMI 35-39.9 12/06/2019 1 07/09/2019 documented as of this encounter (statuses as of 03/09/2022) [facility] History of Past illness Narrative* Problem Noted Date Resolved Date Sepsis 03/09/2020 03/13/2020 Obesity, Class II, BMI 35-39.9 12/06/2019 1 07/09/2019 documented as of this encounter (statuses as of 03/09/2022) [facility] History of Past illness Narrative* Problem Noted Date Resolved Date Sepsis 03/09/2020 03/13/2020 Obesity, Class II, BMI 35-39.9 12/06/2019 1 07/09/2019 documented as of this encounter (statuses as of 03/09/2022) [facility] History of Past illness Narrative* Problem Noted Date Resolved Date Sepsis 03/09/2020 03/13/2020 Obesity, Class II, BMI 35-39.9 12/06/2019 1 07/09/2019 documented as of this encounter (statuses as of 03/10/2022) [facility] History of Past illness Narrative* Problem Noted Date Resolved Date Sepsis 03/09/2020 03/13/2020 Obesity, Class II, BMI 35-39.9 12/06/2019 1 07/09/2019 documented as of this encounter (statuses as of 03/11/2022) [facility] History of Past illness Narrative* Problem Noted Date Resolved Date Sepsis 03/09/2020 03/13/2020 Obesity, Class II, BMI 35-39.9 12/06/2019 1 07/09/2019 documented as of this encounter (statuses as of 03/14/2022) [facility] History of Past illness Narrative* Problem Noted Date Resolved Date Sepsis 03/09/2020 03/13/2020 Obesity, Class II, BMI 35-39.9 12/06/2019 1 07/09/2019 documented as of this encounter (statuses as of 03/16/2022) [facility] History of Past illness Narrative* Problem Noted Date Resolved Date Sepsis 03/09/2020 03/13/2020 Obesity, Class II, BMI 35-39.9 12/06/2019 1 07/09/2019 documented as of this encounter (statuses as of 03/16/2022) [facility] History of Past illness Narrative* Problem Noted Date Resolved Date Sepsis 03/09/2020 03/13/2020 Obesity, Class II, BMI 35-39.9 12/06/2019 1 07/09/2019 documented as of this encounter (statuses as of 03/16/2022) [facility] History of Past illness Narrative* Problem Noted Date Resolved Date Sepsis 03/09/2020 03/13/2020 Obesity, Class II, BMI 35-39.9 12/06/2019 1 07/09/2019 documented as of this encounter (statuses as of 03/16/2022) [facility] History of Past illness Narrative* Problem Noted Date Resolved Date Sepsis 03/09/2020 03/13/2020 Obesity, Class II, BMI 35-39.9 12/06/2019 1 07/09/2019 documented as of this encounter (statuses as of 03/17/2022) [facility]2020 History of Past illness Narrative* Problem Noted Date Resolved Date Sepsis 03/09/2020 03/13/2020 Obesity, Class II, BMI 35-39.9 12/06/2019 1 07/09/2019 documented as of this encounter (statuses as of 03/28/2022) [facility]2020 History of Past illness Narrative* Problem Noted Date Resolved Date Sepsis 03/09/2020 03/13/2020 Obesity, Class II, BMI 35-39.9 12/06/2019 1 07/09/2019 documented as of this encounter (statuses as of 03/30/2022) [facility]2020 History of Past illness Narrative* Problem Noted Date Resolved Date Sepsis 03/09/2020 03/13/2020 Obesity, Class II, BMI 35-39.9 12/06/2019 1 07/09/2019 documented as of this encounter (statuses as of 03/30/2022) [facility]2020 History of Past illness Narrative* Problem Noted Date Resolved Date Sepsis 03/09/2020 03/13/2020 Obesity, Class II, BMI 35-39.9 12/06/2019 1 07/09/2019 documented as of this encounter (statuses as of 03/30/2022) [facility] History of Past illness Narrative* Problem Noted Date Resolved Date Sepsis 03/09/2020 03/13/2020 Obesity, Class II, BMI 35-39.9 12/06/2019 1 07/09/2019 documented as of this encounter (statuses as of 04/05/2022) [facility]2020 History of Past illness Narrative* Problem Noted Date Resolved Date Sepsis 03/09/2020 03/13/2020 Obesity, Class II, BMI 35-39.9 12/06/2019 1 07/09/2019 documented as of this encounter (statuses as of 04/06/2022) [facility] History of Past illness Narrative* Problem Noted Date Resolved Date Sepsis 03/09/2020 03/13/2020 Obesity, Class II, BMI 35-39.9 12/06/2019 1 07/09/2019 documented as of this encounter (statuses as of 04/06/2022) [facility] History of Past illness Narrative* Problem Noted Date Resolved Date Sepsis 03/09/2020 03/13/2020 Obesity, Class II, BMI 35-39.9 12/06/2019 1 07/09/2019 documented as of this encounter (statuses as of 04/06/2022) [address]19-2020 History of Past illness Narrative* Problem Noted Date Resolved Date Sepsis 03/09/2020 03/13/2020 Obesity, Class II, BMI 35-39.9 12/06/2019 1 07/09/2019 documented as of this encounter (statuses as of 04/20/2022) [facility] History of Past illness Narrative* Problem Noted Date Resolved Date Sepsis 03/09/2020 03/13/2020 Obesity, Class II, BMI 35-39.9 12/06/2019 1 07/09/2019 documented as of this encounter (statuses as of 04/20/2022) [facility] History of Past illness Narrative* Problem Noted Date Resolved Date Sepsis 03/09/2020 03/13/2020 Obesity, Class II, BMI 35-39.9 12/06/2019 1 07/09/2019 documented as of this encounter (statuses as of 04/26/2022) [address]19-2020 History of Past illness Narrative* Problem Noted Date Resolved Date Sepsis 03/09/2020 03/13/2020 Obesity, Class II, BMI 35-39.9 12/06/2019 1 07/09/2019 documented as of this encounter (statuses as of 04/27/2022) [facility] History of Past illness Narrative* Problem Noted Date Resolved Date Sepsis 03/09/2020 03/13/2020 Obesity, Class II, BMI 35-39.9 12/06/2019 1 07/09/2019 documented as of this encounter (statuses as of 04/29/2022) [address]19-2020 History of Past illness Narrative* Problem Noted Date Resolved Date Sepsis 03/09/2020 03/13/2020 Obesity, Class II, BMI 35-39.9 12/06/2019 1 07/09/2019 documented as of this encounter (statuses as of 05/11/2022) [address]19-2020 History of Past illness Narrative* Problem Noted Date Resolved Date Sepsis 03/09/2020 03/13/2020 Obesity, Class II, BMI 35-39.9 12/06/2019 1 07/09/2019 documented as of this encounter (statuses as of 05/11/2022) [facility]2020 History of Past illness Narrative* Problem Noted Date Resolved Date Sepsis 03/09/2020 03/13/2020 Obesity, Class II, BMI 35-39.9 12/06/2019 1 07/09/2019 documented as of this encounter (statuses as of 05/11/2022) [facility]2020 History of Past illness Narrative* Problem Noted Date Resolved Date Sepsis 03/09/2020 03/13/2020 Obesity, Class II, BMI 35-39.9 12/06/2019 1 07/09/2019 documented as of this encounter (statuses as of 05/13/2022) [facility]2020 History of Past illness Narrative* Problem Noted Date Resolved Date Sepsis 03/09/2020 03/13/2020 Obesity, Class II, BMI 35-39.9 12/06/2019 1 07/09/2019 documented as of this encounter (statuses as of 06/01/2022) [facility]2020 History of Past illness Narrative* Problem Noted Date Resolved Date Sepsis 03/09/2020 03/13/2020 Obesity, Class II, BMI 35-39.9 12/06/2019 1 07/09/2019 documented as of this encounter (statuses as of 06/29/2022) [facility]2020 History of Past illness Narrative* Problem Noted Date Resolved Date Sepsis 03/09/2020 03/13/2020 Obesity, Class II, BMI 35-39.9 12/06/2019 1 07/09/2019 documented as of this encounter (statuses as of 06/29/2022) [facility]2020 History of Past illness Narrative* Problem Noted Date Resolved Date Sepsis 03/09/2020 03/13/2020 Obesity, Class II, BMI 35-39.9 12/06/2019 1 07/09/2019 documented as of this encounter (statuses as of 08/02/2022) [facility]2020 History of Past illness Narrative* Problem Noted Date Resolved Date Sepsis 03/09/2020 03/13/2020 Obesity, Class II, BMI 35-39.9 12/06/2019 1 07/09/2019 documented as of this encounter (statuses as of 08/02/2022) [facility] History of Past illness Narrative* Problem Noted Date Resolved Date Sepsis 03/09/2020 03/13/2020 Obesity, Class II, BMI 35-39.9 12/06/2019 1 07/09/2019 documented as of this encounter (statuses as of 08/04/2022) [facility]2020 History of Past illness Narrative* Problem Noted Date Resolved Date Sepsis 03/09/2020 03/13/2020 Obesity, Class II, BMI 35-39.9 12/06/2019 1 07/09/2019 documented as of this encounter (statuses as of 09/29/2022) [facility] History of Past illness Narrative* Problem Noted Date Resolved Date Sepsis 03/09/2020 03/13/2020 Obesity, Class II, BMI 35-39.9 12/06/2019 1 07/09/2019 documented as of this encounter (statuses as of 09/29/2022) [facility]2020 History of Past illness Narrative* Problem Noted Date Resolved Date Sepsis 03/09/2020 03/13/2020 Obesity, Class II, BMI 35-39.9 12/06/2019 1 07/09/2019 documented as of this encounter (statuses as of 11/03/2022) [facility] History of Past illness Narrative* Problem Noted Date Resolved Date Sepsis 03/09/2020 03/13/2020 Obesity, Class II, BMI 35-39.9 12/06/2019 1 07/09/2019 documented as of this encounter (statuses as of 11/07/2022) [facility] History of Past illness Narrative* Problem Noted Date Resolved Date Sepsis 03/09/2020 03/13/2020 Obesity, Class II, BMI 35-39.9 12/06/2019 1 07/09/2019 documented as of this encounter (statuses as of 11/10/2022) [facility] History of Past illness Narrative* Problem Noted Date Resolved Date Sepsis 03/09/2020 03/13/2020 Obesity, Class II, BMI 35-39.9 12/06/2019 1 07/09/2019 documented as of this encounter (statuses as of 11/10/2022) [facility] History of Past illness Narrative* Problem Noted Date Resolved Date Sepsis 03/09/2020 03/13/2020 Obesity, Class II, BMI 35-39.9 12/06/2019 1 07/09/2019 documented as of this encounter (statuses as of 11/24/2022) [address]19-2020 History of Past illness Narrative* Problem Noted Date Resolved Date Sepsis 03/09/2020 03/13/2020 Obesity, Class II, BMI 35-39.9 12/06/2019 1 07/09/2019 documented as of this encounter (statuses as of 11/24/2022) [facility] History of Past illness Narrative* Problem Noted Date Resolved Date Sepsis 03/09/2020 03/13/2020 Obesity, Class II, BMI 35-39.9 12/06/2019 1 07/09/2019 documented as of this encounter (statuses as of 11/24/2022) [facility]2020 History of Past illness Narrative* Problem Noted Date Diagnosed Date Resolved Date Sepsis 03/09/2020 03/13/2020 Obesity, Class II, BMI 35-39.9 12/06/2019 05/08/2020 documented as of this encounter (statuses as of 11/28/2022) [address]19-2020 History of Past illness Narrative* Problem Noted Date Diagnosed Date Resolved Date Sepsis 03/09/2020 03/13/2020 Obesity, Class II, BMI 35-39.9 12/06/2019 05/08/2020 documented as of this encounter (statuses as of 11/30/2022) [facility]2020 History of Past illness Narrative* Problem Noted Date Diagnosed Date Resolved Date Sepsis 03/09/2020 03/13/2020 Obesity, Class II, BMI 35-39.9 12/06/2019 05/08/2020 documented as of this encounter (statuses as of 11/30/2022) [facility]2020 History of Past illness Narrative* Problem Noted Date Diagnosed Date Resolved Date Sepsis 03/09/2020 03/13/2020 Obesity, Class II, BMI 35-39.9 12/06/2019 05/08/2020 documented as of this encounter (statuses as of 12/05/2022) [address]19-2020 History of Past illness Narrative* Problem Noted Date Diagnosed Date Resolved Date Sepsis 03/09/2020 03/13/2020 Obesity, Class II, BMI 35-39.9 12/06/2019 05/08/2020 documented as of this encounter (statuses as of 12/05/2022) [facility]2020 History of Past illness Narrative* Problem Noted Date Diagnosed Date Resolved Date Sepsis 03/09/2020 03/13/2020 Obesity, Class II, BMI 35-39.9 12/06/2019 05/08/2020 documented as of this encounter (statuses as of 12/06/2022) [facility]2020 History of Past illness Narrative* Problem Noted Date Diagnosed Date Resolved Date Sepsis 03/09/2020 03/13/2020 Obesity, Class II, BMI 35-39.9 12/06/2019 05/08/2020 documented as of this encounter (statuses as of 12/06/2022) [facility]2020 History of Past illness Narrative* Problem Noted Date Diagnosed Date Resolved Date Sepsis 03/09/2020 03/13/2020 Obesity, Class II, BMI 35-39.9 12/06/2019 05/08/2020 documented as of this encounter (statuses as of 12/14/2022) [address]19-2020 History of Past illness Narrative* Problem Noted Date Diagnosed Date Resolved Date Sepsis 03/09/2020 03/13/2020 Obesity, Class II, BMI 35-39.9 12/06/2019 05/08/2020 documented as of this encounter (statuses as of 12/14/2022) [facility]2020 History of Past illness Narrative* Problem Noted Date Diagnosed Date Resolved Date Sepsis 03/09/2020 03/13/2020 Obesity, Class II, BMI 35-39.9 12/06/2019 05/08/2020 documented as of this encounter (statuses as of 12/21/2022) [facility]2020 History of Past illness Narrative* Problem Noted Date Diagnosed Date Resolved Date Sepsis 03/09/2020 03/13/2020 Obesity, Class II, BMI 35-39.9 12/06/2019 05/08/2020 documented as of this encounter (statuses as of 12/21/2022) [address]19-2020 History of Past illness Narrative* Problem Noted Date Diagnosed Date Resolved Date Sepsis 03/09/2020 03/13/2020 Obesity, Class II, BMI 35-39.9 12/06/2019 05/08/2020 documented as of this encounter (statuses as of 12/21/2022) [address]19-2020 History of Past illness Narrative* Problem Noted Date Diagnosed Date Resolved Date Sepsis 03/09/2020 03/13/2020 Obesity, Class II, BMI 35-39.9 12/06/2019 05/08/2020 documented as of this encounter (statuses as of 12/22/2022) [facility]2020 History of Past illness Narrative* Problem Noted Date Diagnosed Date Resolved Date Sepsis 03/09/2020 03/13/2020 Obesity, Class II, BMI 35-39.9 12/06/2019 05/08/2020 documented as of this encounter (statuses as of 01/05/2023) [facility]2020 History of Past illness Narrative* Problem Noted Date Diagnosed Date Resolved Date Sepsis 03/09/2020 03/13/2020 Obesity, Class II, BMI 35-39.9 12/06/2019 05/08/2020 documented as of this encounter (statuses as of 02/01/2023) [address]19-2020 History of Past illness Narrative* Problem Noted Date Diagnosed Date Resolved Date Sepsis 03/09/2020 03/13/2020 Obesity, Class II, BMI 35-39.9 12/06/2019 05/08/2020 documented as of this encounter (statuses as of 02/01/2023) [facility]2020 History of Past illness Narrative* Problem Noted Date Diagnosed Date Resolved Date Sepsis 03/09/2020 03/13/2020 Obesity, Class II, BMI 35-39.9 12/06/2019 05/08/2020 documented as of this encounter (statuses as of 02/09/2023) [address]19-2020 History of Past illness Narrative* Problem Noted Date Diagnosed Date Resolved Date Sepsis 03/09/2020 03/13/2020 Obesity, Class II, BMI 35-39.9 12/06/2019 05/08/2020 documented as of this encounter (statuses as of 02/10/2023) [address]19-2020 History of Past illness Narrative* Problem Noted Date Diagnosed Date Resolved Date Sepsis 03/09/2020 03/13/2020 Obesity, Class II, BMI 35-39.9 12/06/2019 05/08/2020 documented as of this encounter (statuses as of 02/11/2023) [facility]2020 History of Past illness Narrative* Problem Noted Date Diagnosed Date Resolved Date Sepsis 03/09/2020 03/13/2020 Obesity, Class II, BMI 35-39.9 12/06/2019 05/08/2020 documented as of this encounter (statuses as of 03/01/2023) [facility]2020 History of Past illness Narrative* Problem Noted Date Diagnosed Date Resolved Date Sepsis 03/09/2020 03/13/2020 Obesity, Class II, BMI 35-39.9 12/06/2019 05/08/2020 documented as of this encounter (statuses as of 03/03/2023) [facility]2020 History of Past illness Narrative* Problem Noted Date Diagnosed Date Resolved Date Sepsis 03/09/2020 03/13/2020 Obesity, Class II, BMI 35-39.9 12/06/2019 05/08/2020 documented as of this encounter (statuses as of 03/08/2023) [facility]2020 History of Past illness Narrative* Problem Noted Date Diagnosed Date Resolved Date Sepsis 03/09/2020 03/13/2020 Obesity, Class II, BMI 35-39.9 12/06/2019 05/08/2020 documented as of this encounter (statuses as of 03/08/2023) [facility]2020 History of Past illness Narrative* Problem Noted Date Diagnosed Date Resolved Date Sepsis 03/09/2020 03/13/2020 Obesity, Class II, BMI 35-39.9 12/06/2019 05/08/2020 documented as of this encounter (statuses as of 03/09/2023) [facility] History of Past illness Narrative* Problem Noted Date Diagnosed Date Resolved Date Sepsis 03/09/2020 03/13/2020 Obesity, Class II, BMI 35-39.9 12/06/2019 05/08/2020 documented as of this encounter (statuses as of 03/31/2023) [facility] History of Past illness Narrative* Problem Noted Date Diagnosed Date Resolved Date Sepsis 03/09/2020 03/13/2020 Obesity, Class II, BMI 35-39.9 12/06/2019 05/08/2020 documented as of this encounter (statuses as of 04/05/2023) [address]19-2020 History of Past illness Narrative* Problem Noted Date Diagnosed Date Resolved Date Sepsis 03/09/2020 03/13/2020 Obesity, Class II, BMI 35-39.9 12/06/2019 05/08/2020 documented as of this encounter (statuses as of 04/05/2023) [facility] History of Past illness Narrative* Problem Noted Date Diagnosed Date Resolved Date Sepsis 03/09/2020 03/13/2020 Obesity, Class II, BMI 35-39.9 12/06/2019 05/08/2020 documented as of this encounter (statuses as of 04/05/2023) [facility] History of Past illness Narrative* Problem Noted Date Diagnosed Date Resolved Date Sepsis 03/09/2020 03/13/2020 Obesity, Class II, BMI 35-39.9 12/06/2019 05/08/2020 documented as of this encounter (statuses as of 04/06/2023) [facility] History of Past illness Narrative* Problem Noted Date Diagnosed Date Resolved Date Sepsis 03/09/2020 03/13/2020 Obesity, Class II, BMI 35-39.9 12/06/2019 05/08/2020 documented as of this encounter (statuses as of 04/07/2023) [facility] History of Past illness Narrative* Problem Noted Date Diagnosed Date Resolved Date Sepsis 03/09/2020 03/13/2020 Obesity, Class II, BMI 35-39.9 12/06/2019 05/08/2020 documented as of this encounter (statuses as of 05/05/2023) [facility] History of Past illness Narrative* Problem Noted Date Diagnosed Date Resolved Date Sepsis 03/09/2020 03/13/2020 Obesity, Class II, BMI 35-39.9 12/06/2019 05/08/2020 documented as of this encounter (statuses as of 05/06/2023) [facility]2020 History of Past illness Narrative* Problem Noted Date Diagnosed Date Resolved Date Sepsis 03/09/2020 03/13/2020 Obesity, Class II, BMI 35-39.9 12/06/2019 05/08/2020 documented as of this encounter (statuses as of 05/06/2023) [facility]2020 History of Past illness Narrative* Problem Noted Date Diagnosed Date Resolved Date Sepsis 03/09/2020 03/13/2020 Obesity, Class II, BMI 35-39.9 12/06/2019 05/08/2020 documented as of this encounter (statuses as of 06/23/2023) [facility] History of Past illness Narrative* Problem Noted Date Diagnosed Date Resolved Date Sepsis 03/09/2020 03/13/2020 Obesity, Class II, BMI 35-39.9 12/06/2019 05/08/2020 documented as of this encounter (statuses as of 06/23/2023) [facility] History of Past illness Narrative* Problem Noted Date Diagnosed Date Resolved Date Sepsis 03/09/2020 03/13/2020 Obesity, Class II, BMI 35-39.9 12/06/2019 05/08/2020 documented as of this encounter (statuses as of 07/05/2023) [facility] History of Past illness Narrative* Problem Noted Date Diagnosed Date Resolved Date Sepsis 03/09/2020 03/13/2020 Obesity, Class II, BMI 35-39.9 12/06/2019 05/08/2020 documented as of this encounter (statuses as of 07/05/2023) [facility] History of Past illness Narrative* Problem Noted Date Diagnosed Date Resolved Date Sepsis 03/09/2020 03/13/2020 Obesity, Class II, BMI 35-39.9 12/06/2019 05/08/2020 documented as of this encounter (statuses as of 07/07/2023) [facility] History of Past illness Narrative* Problem Noted Date Diagnosed Date Resolved Date Sepsis 03/09/2020 03/13/2020 Obesity, Class II, BMI 35-39.9 12/06/2019 05/08/2020 documented as of this encounter (statuses as of 07/13/2023) [address]19-2020 History of Past illness Narrative* Problem Noted Date Diagnosed Date Resolved Date Sepsis 03/09/2020 03/13/2020 Obesity, Class II, BMI 35-39.9 12/06/2019 05/08/2020 documented as of this encounter (statuses as of 07/19/2023) [address]19-2020 History of Past illness Narrative* Problem Noted Date Diagnosed Date Resolved Date Sepsis 03/09/2020 03/13/2020 Obesity, Class II, BMI 35-39.9 12/06/2019 05/08/2020 documented as of this encounter (statuses as of 07/20/2023) [address]19-2020 History of Past illness Narrative* Problem Noted Date Diagnosed Date Resolved Date Sepsis 03/09/2020 03/13/2020 Obesity, Class II, BMI 35-39.9 12/06/2019 05/08/2020 documented as of this encounter (statuses as of 07/20/2023) [address]19-2020 History of Past illness Narrative* Problem Noted Date Diagnosed Date Resolved Date Sepsis 03/09/2020 03/13/2020 Obesity, Class II, BMI 35-39.9 12/06/2019 05/08/2020 documented as of this encounter (statuses as of 07/21/2023) [address]19-2020 History of Past illness Narrative* Problem Noted Date Diagnosed Date Resolved Date Sepsis 03/09/2020 03/13/2020 Obesity, Class II, BMI 35-39.9 12/06/2019 05/08/2020 documented as of this encounter (statuses as of 07/26/2023) [facility] History of Past illness Narrative* Problem Noted Date Diagnosed Date Resolved Date Sepsis 03/09/2020 03/13/2020 Obesity, Class II, BMI 35-39.9 12/06/2019 05/08/2020 documented as of this encounter (statuses as of 08/02/2023) [facility]2020 History of Past illness Narrative* Problem Noted Date Diagnosed Date Resolved Date Sepsis 03/09/2020 03/13/2020 Obesity, Class II, BMI 35-39.9 12/06/2019 05/08/2020 documented as of this encounter (statuses as of 08/02/2023) [address]19-2020 History of Past illness Narrative* Problem Noted Date Diagnosed Date Resolved Date Sepsis 03/09/2020 03/13/2020 Obesity, Class II, BMI 35-39.9 12/06/2019 05/08/2020 documented as of this encounter (statuses as of 08/02/2023) [address]19-2020 History of Past illness Narrative* Problem Noted Date Diagnosed Date Resolved Date Sepsis 03/09/2020 03/13/2020 Obesity, Class II, BMI 35-39.9 12/06/2019 05/08/2020 documented as of this encounter (statuses as of 08/04/2023) [address]19-2020 History of Past illness Narrative* Problem Noted Date Diagnosed Date Resolved Date Sepsis 03/09/2020 03/13/2020 Obesity, Class II, BMI 35-39.9 12/06/2019 05/08/2020 documented as of this encounter (statuses as of 08/09/2023) [address]19-2020 History of Past illness Narrative* Problem Noted Date Diagnosed Date Resolved Date Sepsis 03/09/2020 03/13/2020 Obesity, Class II, BMI 35-39.9 12/06/2019 05/08/2020 documented as of this encounter (statuses as of 08/11/2023) [facility] History of Past illness Narrative* Problem Noted Date Diagnosed Date Resolved Date Sepsis 03/09/2020 03/13/2020 Obesity, Class II, BMI 35-39.9 12/06/2019 05/08/2020 documented as of this encounter (statuses as of 08/23/2023) [address]19-2020 History of Past illness Narrative* Problem Noted Date Diagnosed Date Resolved Date Sepsis 03/09/2020 03/13/2020 Obesity, Class II, BMI 35-39.9 12/06/2019 05/08/2020 documented as of this encounter (statuses as of 08/24/2023) [address]19-2020 History of Past illness Narrative* Problem Noted Date Diagnosed Date Resolved Date Sepsis 03/09/2020 03/13/2020 Obesity, Class II, BMI 35-39.9 12/06/2019 05/08/2020 documented as of this encounter (statuses as of 08/25/2023) [facility] Malignant neoplasm of pancreas, 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) Malignant neoplasm of head of pancreas [facility] 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 Malignant neoplasm of head of pancreas 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) Malignant neoplasm of head of pancreas 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) Malignant neoplasm of head of pancreas [facility] 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 Malignant neoplasm of head of pancreas [facility] 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 Malignant neoplasm of head of pancreas [facility] 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 Malignant neoplasm of head of pancreas Diarrhea, unspecified type [facility] 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 Malignant neoplasm of head of pancreas [facility] 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 Malignant neoplasm of head of pancreas Anemia, unspecified type [facility] 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) Malignant neoplasm of head of pancreas [facility] Diagnosis 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 Malignant neoplasm of head of pancreas Acute pancreatitis without infection or necrosis, unspecified pancreatitis type [facility] Diagnosis 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 Malignant neoplasm of head of pancreas [facility] Diagnosis 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 Malignant neoplasm of head of pancreas Anemia, unspecified type [facility] Diagnosis 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 Malignant neoplasm of head of pancreas Anemia, unspecified type [facility] Diagnosis 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) Malignant neoplasm of head of pancreas [facility] Diagnosis 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 Malignant neoplasm of head of pancreas [facility] Diagnosis 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 Malignant neoplasm of head of pancreas [facility] Diagnosis 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 Malignant neoplasm of head of pancreas Anemia, unspecified type [facility] Diagnosis 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) Malignant neoplasm of head of pancreas Anemia, unspecified type [facility] Diagnosis 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 Malignant neoplasm of head of pancreas [facility]* Diagnosis 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 Malignant neoplasm of head of pancreas [facility]* Diagnosis 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) Malignant neoplasm of head of pancreas [facility] Diagnosis 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 Malignant neoplasm of head of pancreas [facility]* Diagnosis 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 Malignant neoplasm of head of pancreas [facility]* Diagnosis 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) Malignant neoplasm of head of pancreas [facility] Diagnosis 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 Malignant neoplasm of head of pancreas [facility]* Diagnosis 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) Malignant neoplasm of head of pancreas [facility] Diagnosis 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 Malignant neoplasm of head of pancreas Anemia, unspecified type Type 2 diabetes mellitus without complication, with long-term current use of insulin (HCC) Severe protein-calorie malnutrition (HCC) Other severe protein-calorie malnutrition [facility] Diagnosis 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) Malignant neoplasm of head of pancreas [facility] Diagnosis 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) Malignant neoplasm of head of pancreas [facility]* Diagnosis 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 Malignant neoplasm of head of pancreas [facility]* Diagnosis 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) Malignant neoplasm of head of pancreas [facility]* Diagnosis 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 Malignant neoplasm of head of pancreas Anemia, unspecified type Type 2 diabetes mellitus without complication, with long-term current use of insulin (HCC) Severe protein-calorie malnutrition (HCC) Other severe protein-calorie malnutrition [facility] Diagnosis 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) Malignant neoplasm of head of pancreas [facility]* Diagnosis 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 Malignant neoplasm of head of pancreas [facility] noteNo assessment information availableMer[facility] Phone: Evaluation note* Diagnosis 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)- Primary [facility]* Diagnosis 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)- Primary Chest pain, unspecified type LINDSEY (dyspnea on exertion) Other dyspnea and respiratory abnormality Anemia, unspecified type Type 2 diabetes mellitus without complication, with long-term current use of insulin (HCC) Severe protein-calorie malnutrition (HCC) Other severe protein-calorie malnutrition [facility] Diagnosis LINDSEY (dyspnea on exertion)- Primary Other dyspnea and respiratory abnormality [facility]* Diagnosis 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)- Primary [facility]* Diagnosis 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) [facility]* Diagnosis 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)- Primary [facility]* Diagnosis 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 Malignant neoplasm of head of pancreas [facility]* Diagnosis 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)- Primary Type 2 diabetes mellitus without complication, with long-term current use of insulin (HCC) LINDSEY (dyspnea on exertion) Other dyspnea and respiratory abnormality Severe protein-calorie malnutrition (HCC) Other severe protein-calorie malnutrition [facility]* Diagnosis 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) [facility] Diagnosis 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)- Primary [facility]* Diagnosis 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 Malignant neoplasm of head of pancreas [facility]* Diagnosis 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)- Primary Type 2 diabetes mellitus without complication, with long-term current use of insulin (HCC) Severe protein-calorie malnutrition (HCC) Other severe protein-calorie malnutrition [facility]* Diagnosis 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) Type 2 diabetes mellitus without complication, with long-term current use of insulin (HCC) LINDSEY (dyspnea on exertion) Other dyspnea and respiratory abnormality [facility]* Diagnosis 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 Malignant neoplasm of head of pancreas Type 2 diabetes mellitus without complication, with long-term current use of insulin (HCC) Severe protein-calorie malnutrition (HCC) Other severe protein-calorie malnutrition Anemia, unspecified type [facility] Diagnosis 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 Malignant neoplasm of head of pancreas [facility]* Diagnosis Type 2 diabetes mellitus without complication, with long-term current use of insulin (HCC) Severe protein-calorie malnutrition (HCC) Other severe protein-calorie malnutrition 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) Malignant neoplasm of head of pancreas Anemia, unspecified type [facility] Diagnosis 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 Malignant neoplasm of head of pancreas [facility]* Diagnosis 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 Malignant neoplasm of head of pancreas [facility]* Diagnosis 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) Malignant neoplasm of head of pancreas [facility]* Diagnosis 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 Malignant neoplasm of head of pancreas [facility]* Diagnosis 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 Malignant neoplasm of head of pancreas [facility]* Diagnosis 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 Malignant neoplasm of head of pancreas [facility]* Diagnosis 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) Malignant neoplasm of head of pancreas [facility]* Diagnosis 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 Malignant neoplasm of head of pancreas [facility]* Diagnosis 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 Malignant neoplasm of head of pancreas Severe protein-calorie malnutrition (HCC) Other severe protein-calorie malnutrition [facility]* Diagnosis 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 Malignant neoplasm of head of pancreas Type 2 diabetes mellitus without complication, with long-term current use of insulin (HCC) Neuropathy Mononeuritis of unspecified site Severe protein-calorie malnutrition (HCC) Other severe protein-calorie malnutrition [facility]* Diagnosis 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) Malignant neoplasm of head of pancreas Type 2 diabetes mellitus without complication, with long-term current use of insulin (HCC) Neuropathy Mononeuritis of unspecified site Severe protein-calorie malnutrition (HCC) Other severe protein-calorie malnutrition [facility]* Diagnosis 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 Malignant neoplasm of head of pancreas [facility]* Diagnosis 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 Malignant neoplasm of head of pancreas [facility]* Diagnosis 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 Malignant neoplasm of head of pancreas [facility]* Diagnosis 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) Malignant neoplasm of head of pancreas [facility]* Diagnosis 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 Malignant neoplasm of head of pancreas [facility]* Diagnosis 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) Malignant neoplasm of head of pancreas [facility]* Diagnosis 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 Malignant neoplasm of head of pancreas [facility]* Diagnosis 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 Malignant neoplasm of head of pancreas Type 2 diabetes mellitus without complication, with long-term current use of insulin (HCC) Neuropathy Mononeuritis of unspecified site Severe protein-calorie malnutrition (HCC) Other severe protein-calorie malnutrition Diabetes mellitus due to underlying condition with diabetic polyneuropathy, without long-term current use of insulin (HCC) [facility] Diagnosis 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 Malignant neoplasm of head of pancreas [facility]* Diagnosis 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 Malignant neoplasm of head of pancreas Neuropathy Mononeuritis of unspecified site [facility] 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) Malignant neoplasm of head of pancreas Neuropathy Mononeuritis of unspecified site [facility] [place] [facility] Diagnosis 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 Malignant neoplasm of head of pancreas Leg swelling Swelling of limb Neuropathy Mononeuritis of unspecified site Acute cough Diabetes mellitus due to underlying condition with diabetic polyneuropathy, without long-term current use of insulin (HCC) Acute cough [facility] Diagnosis Leg swelling Swelling of limb 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) Malignant neoplasm of head of pancreas Neuropathy Mononeuritis of unspecified site Acute cough [facility] [place] [facility]* Diagnosis 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 Malignant neoplasm of head of pancreas Frequency of urination Urinary frequency Leg swelling Swelling of limb Acute cough Anemia, unspecified type [facility] [place] [facility]* Diagnosis Frequency of urination- Primary Urinary frequency 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) Malignant neoplasm of head of pancreas [facility] [place] [facility]* Diagnosis 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 Malignant neoplasm of head of pancreas [facility] Outpatient Procedure (Urgent) - Pending Review Specialty Diagnoses / Procedures Referred By Riaz t [facility] Diagnoses Leg swelling Procedures US LEG VEIN DVT [facility] DUP-SCAN XTR VEINS COMPLETE BILATERAL STUDY Greta Wetzel PA-C [address] [place] [address] [place] [address] [facility] [address] [place] [id number] Referral ID Status Reason Start Date Expiration Date Visits Requested Visits Authorized [id number] Pending Review Auto-Generat ed Referral 10/03/2023 10/02/2024 1 1 [facility] Summary Purpose Family History Relationship Condition Age at Onset Recorded Date/T abdoul Not Specified No pertinent family history Unknown Advance Directives Documents on File Type Date Recorded Patient [employer] Expl anation Advance Directive(s) 2021 7:23 AM Advance Directive(s) 04/09/2021 5:24 PM Advance Directive(s) 02/05/2021 12:50 PM Advance Directive(s) 01/18/2021 4:04 PM Advance Directive(s) 01/05/2021 2:37 PM Advance Directive(s) 12/26/2020 2:44 AM Advance Directive(s) 12/11/2020 12:47 AM Advance Directive(s) 12/01/2020 3:31 PM Advance Directive(s) 11/26/2020 10:26 AM Advance Directive(s) 10/29/2020 2:37 PM Advance Directive(s) 07/21/2020 10:33 AM Advance Directive(s) 07/16/2020 9:12 AM Advance Directive(s) 05/11/2020 10:39 AM Advance Directive(s) 03/20/2020 8:20 PM Advance Directive(s) 03/09/2020 4:53 PM Advance Directive(s) 12/04/2019 6:55 AM Advance Directive(s) 11/29/2019 10:16 AM Advance Directive(s) 11/20/2019 9:08 AM Advance Directive Response Recorded Date/ Time Advance Directives No October 09 1:28pm Medications Administered Section Inactive Administered Medications - up to 3 most recent administrations Medication Order MAR Action Action Date Dose Rate Site lactated ringers iv infusion 30 mL/hr, INTRAVENOUS, CONTINUOUS, Starting on Mon10/22/21 at 1000, Until 10/23/21 at 0419, Preprocedure New Bag/Syringe/Bottle 10/22/2021 10:00 AM EDT 30 mL/hr 30 mL/hr Inactive Administered Medications - up to 3 most recent administrations Medication Order MAR Action Action Date Dose Rate Site gemcitabine 2,000 mg in NaCl 0.9% 327.6 mL (GEMZAR) 2,000 mg (rounded from 2,030 mg = 1,000 mg/m2 2.03 m2 Treatment Plan BSA from Recorded weight), INTRAVENOUS, Administer over 30 Minutes, ONCE, 1 dose, On Mon03/16/22 at 1130, Approx Total Volume: mL EXP:03/17/2022@1730 Hazardous Chemotherapy Drug: Use appropriate PPE. Antineoplastic Irritant. New Bag/Syringe/Bottle 03/16/2022 12:13 PM EDT 2,000 mg ondansetron (PF) 8 mg injection (ZOFRAN) 8 mg, INTRAVENOUS, ONCE, 1 dose, On Mon03/16/22 at 1100 Given 03/16/2022 11:21 AM EDT 8 mg PACLitaxel-protein bound 200 mg in NaCl 0.9% (ABRAXANE) 200 mg (rounded from 203 mg = 100 mg/m2 2.03 m2 Treatment Plan BSA from Recorded weight), INTRAVENOUS, at 80 mL/hr, Administer over 30 Minutes, ONCE, 1 dose, On Mon03/16/22 at 1130, EXP 1915 Administer total dose over 30 minutes. Hazardous Chemotherapy Drug: Use appropriate PPE. Antineoplastic Irritant with Vesicant Potential. New Bag/Syringe/Bottle 03/16/2022 11:36 AM EDT 200 mg 80 mL/hr Inactive Administered Medications - up to 3 most recent administrations Medication Order MAR Action Action Date Dose Rate Site gemcitabine 2,000 mg in NaCl 0.9% 327.6 mL (GEMZAR) 2,000 mg (rounded from 2,030 mg = 1,000 mg/m2 2.03 m2 Treatment Plan BSA from Recorded weight), INTRAVENOUS, Administer over 30 Minutes, ONCE, 1 dose, On Mon03/30/22 at 1200, Approx Total Volume: mL EXP:03/31/2022@1745 Hazardous Chemotherapy Drug: Use appropriate PPE. Antineoplastic Irritant. New Bag/Syringe/Bottle 03/30/2022 12:55 PM EST 2,000 mg ondansetron (PF) 8 mg injection (ZOFRAN) 8 mg, INTRAVENOUS, ONCE, 1 dose, On Mon03/30/22 at 1200 Given 03/30/2022 11:50 AM EST 8 mg PACLitaxel-protein bound 200 mg in NaCl 0.9% (ABRAXANE) 200 mg (rounded from 203 mg = 100 mg/m2 2.03 m2 Treatment Plan BSA from Recorded weight), INTRAVENOUS, at 80 mL/hr, Administer over 30 Minutes, ONCE, 1 dose, On Mon03/30/22 at 1200, EXP:1945 Administer total dose over 30 minutes. Hazardous Chemotherapy Drug: Use appropriate PPE. Antineoplastic Irritant with Vesicant Potential. New Bag/Syringe/Bottle 03/30/2022 12:17 PM EST 200 mg 80 mL/hr Inactive Administered Medications - up to 3 most recent administrations Medication Order MAR Action Action Date Dose Rate Site gemcitabine 2,000 mg in NaCl 0.9% 327.6 mL (GEMZAR) 2,000 mg (rounded from 2,030 mg = 1,000 mg/m2 2.03 m2 Treatment Plan BSA from Recorded weight), INTRAVENOUS, Administer over 30 Minutes, ONCE, 1 dose, On Mon04/06/22 at 1230, Approx Total Volume: mL EXP: 42904/08/22 Hazardous Chemotherapy Drug: Use appropriate PPE. Antineoplastic Irritant. New Bag/Syringe/Bottle 04/06/2022 1:41 PM EST 2,000 mg ondansetron (PF) 8 mg injection (ZOFRAN) 8 mg, INTRAVENOUS, ONCE, 1 dose, On Mon04/06/22 at 1230 Given 04/06/2022 12:54 PM EST 8 mg PACLitaxel-protein bound 200 mg in NaCl 0.9% (ABRAXANE) 200 mg (rounded from 203 mg = 100 mg/m2 2.03 m2 Treatment Plan BSA from Recorded weight), INTRAVENOUS, at 80 mL/hr, Administer over 30 Minutes, ONCE, 1 dose, On Mon04/06/22 at 1230, EXP: 202904/06/22_ Administer total dose over 30 minutes. Hazardous Chemotherapy Drug: Use appropriate PPE. Antineoplastic Irritant with Vesicant Potential. New Bag/Syringe/Bottle 04/06/2022 1:02 PM EST 200 mg 80 mL/hr Inactive Administered Medications - up to 3 most recent administrations Medication Order MAR Action Action Date Dose Rate Site gemcitabine 2,000 mg in NaCl 0.9% 327.6 mL (GEMZAR) 2,000 mg (rounded from 2,030 mg = 1,000 mg/m2 2.03 m2 Treatment Plan BSA from Recorded weight), INTRAVENOUS, Administer over 30 Minutes, ONCE, 1 dose, On Mon04/27/22 at 1000, Approx Total Volume: mL EXP:04/28/2022@1545 Hazardous Chemotherapy Drug: Use appropriate PPE. Antineoplastic Irritant. New Bag/Syringe/Bottle 04/27/2022 10:54 AM EST 2,000 mg ondansetron (PF) 8 mg injection (ZOFRAN) 8 mg, INTRAVENOUS, ONCE, 1 dose, On Mon04/27/22 at 1000 Given 04/27/2022 9:50 AM EST 8 mg PACLitaxel-protein bound 200 mg in NaCl 0.9% (ABRAXANE) 200 mg (rounded from 203 mg = 100 mg/m2 2.03 m2 Treatment Plan BSA from Recorded weight), INTRAVENOUS, at 80 mL/hr, Administer over 30 Minutes, ONCE, 1 dose, On Mon04/27/22 at 1000, EXP:1745 Administer total dose over 30 minutes. Hazardous Chemotherapy Drug: Use appropriate PPE. Antineoplastic Irritant with Vesicant Potential. New Bag/Syringe/Bottle 04/27/2022 10:17 AM EST 200 mg 80 mL/hr Inactive Administered Medications - up to 3 most recent administrations Medication Order MAR Action Action Date Dose Rate Site gemcitabine 2,000 mg in NaCl 0.9% 327.6 mL (GEMZAR) 2,000 mg (rounded from 2,030 mg = 1,000 mg/m2 2.03 m2 Treatment Plan BSA from Recorded weight), INTRAVENOUS, Administer over 30 Minutes, ONCE, 1 dose, On Mon05/11/22 at 1030, Approx Total Volume: mL EXP:05/12/2022@1615 Hazardous Chemotherapy Drug: Use appropriate PPE. Antineoplastic Irritant. New Bag/Syringe/Bottle 05/11/2022 11:27 AM EST 2,000 mg ondansetron (PF) 8 mg injection (ZOFRAN) 8 mg, INTRAVENOUS, ONCE, 1 dose, On Mon05/11/22 at 1030 Given 05/11/2022 10:24 AM EST 8 mg PACLitaxel-protein bound 200 mg in NaCl 0.9% (ABRAXANE) 200 mg (rounded from 203 mg = 100 mg/m2 2.03 m2 Treatment Plan BSA from Recorded weight), INTRAVENOUS, at 80 mL/hr, Administer over 30 Minutes, ONCE, 1 dose, On Mon05/11/22 at 1030, EXP:1815 Administer total dose over 30 minutes. Hazardous Chemotherapy Drug: Use appropriate PPE. Antineoplastic Irritant with Vesicant Potential. New Bag/Syringe/Bottle 05/11/2022 10:48 AM EST 200 mg 80 mL/hr Inactive Administered Medications - up to 3 most recent administrations Medication Order MAR Action Action Date Dose Rate Site gemcitabine 2,000 mg in NaCl 0.9% 327.6 mL (GEMZAR) 2,000 mg (rounded from 2,050 mg = 1,000 mg/m2 2.05 m2 Treatment Plan BSA from Recorded weight), INTRAVENOUS, Administer over 30 Minutes, ONCE, 1 dose, On Mon11/23/22 at 1500, Approx Total Volume: mL EXP: 0645 11/25/22 Hazardous Chemotherapy Drug: Use appropriate PPE. Antineoplastic Irritant. New Bag/Syringe/Bottle 11/23/2022 3:49 PM EDT 2,000 mg ondansetron (PF) 8 mg injection (ZOFRAN) 8 mg, INTRAVENOUS, ONCE, 1 dose, On Mon11/23/22 at 1500 Given 11/23/2022 2:48 PM EDT 8 mg PACLitaxel-protein bound 200 mg in NaCl 0.9% (ABRAXANE) 200 mg (rounded from 205 mg = 100 mg/m2 2.05 m2 Treatment Plan BSA from Recorded weight), INTRAVENOUS, at 80 mL/hr, Administer over 30 Minutes, ONCE, 1 dose, On Mon11/23/22 at 1500, EXP: 2245 11/23/22 Administer total dose over 30 minutes. Hazardous Chemotherapy Drug: Use appropriate PPE. Antineoplastic Irritant with Vesicant Potential. New Bag/Syringe/Bottle 11/23/2022 3:15 PM EDT 200 mg 80 mL/hr Inactive Administered Medications - up to 3 most recent administrations Medication Order MAR Action Action Date Dose Rate Site gemcitabine 1,742.5 mg in NaCl 0.9% 320.8278 mL (GEMZAR) 1,742.5 mg (850 mg/m2 2.05 m2 Treatment Plan BSA from Recorded weight), INTRAVENOUS, Administer over 30 Minutes, ONCE, 1 dose, On Mon12/14/22 at 1330, Approx Total Volume: mL EXP: 12/15/22 1300 Hazardous Chemotherapy Drug: Use appropriate PPE. Antineoplastic Irritant. New Bag/Syringe/Bottl e 12/14/2022 2:32 PM EDT 1,742.5 mg ondansetron (PF) 8 mg injection (ZOFRAN) 8 mg, INTRAVENOUS, ONCE, 1 dose, On Mon12/14/22 at 1330 Given 12/14/2022 1:20 PM EDT 8 mg PACLitaxel-protein bound 200 mg in NaCl 0.9% (ABRAXANE) 200 mg (rounded from 205 mg = 100 mg/m2 2.05 m2 Treatment Plan BSA from Recorded weight), INTRAVENOUS, at 80 mL/hr, Administer over 30 Minutes, ONCE, 1 dose, On Mon12/14/22 at 1330, EXP: 12/14/22 2100 Administer total dose over 30 minutes. Hazardous Chemotherapy Drug: Use appropriate PPE. Antineoplastic Irritant with Vesicant Potential. New Bag/Syringe/Bottl e 12/14/2022 1:55 PM EDT 200 mg 80 mL/hr Inactive Administered Medications - up to 3 most recent administrations Medication Order MAR Action Action Date Dose Rate Site dexAMETHasone 10 mg in NaCl 0.9% 50 mL (DECADRON) 10 mg, INTRAVENOUS, ONCE, 1 dose, On Mon02/01/23 at 1230, Administer 30 minutes prior to infusion. Refrigerate. New Bag/Syringe/Bottle 02/01/2023 12:38 PM EDT 10 mg gemcitabine 1,600 mg in NaCl 0.9% 317.08 mL (GEMZAR) 1,600 mg (rounded from 1,608.75 mg = 825 mg/m2 1.95 m2 Treatment Plan BSA from Recorded weight), INTRAVENOUS, Administer over 30 Minutes, ONCE, 1 dose, On Mon02/01/23 at 1230, EXP: 0430 02/03/23 Hazardous Chemotherapy Drug: Use appropriate PPE. Antineoplastic Irritant. New Bag/Syringe/Bottle 02/01/2023 1:33 PM EDT 1,600 mg ondansetron (PF) 8 mg injection (ZOFRAN) 8 mg, INTRAVENOUS, ONCE, 1 dose, On Mon02/01/23 at 1230 Given 02/01/2023 12:35 PM EDT 8 mg PACLitaxel-protein bound 195 mg in NaCl 0.9% (ABRAXANE) 195 mg (100 mg/m2 1.95 m2 Treatment Plan BSA from Recorded weight), INTRAVENOUS, at 78 mL/hr, Administer over 30 Minutes, ONCE, 1 dose, On Mon02/01/23 at 1230, EXP: 1824 02/01/23 Administer total dose over 30 minutes. Hazardous Chemotherapy Drug: Use appropriate PPE. Antineoplastic Irritant with Vesicant Potential. New Bag/Syringe/Bottle 02/01/2023 12:55 PM EDT 195 mg 78 mL/hr Inactive Administered Medications - up to 3 most recent administrations Medication Order MAR Action Action Date Dose Rate Site gemcitabine 1,600 mg in NaCl 0.9% 317.08 mL (GEMZAR) 1,600 mg (rounded from 1,608.75 mg = 825 mg/m2 1.95 m2 Treatment Plan BSA from Recorded weight), INTRAVENOUS, Administer over 30 Minutes, ONCE, 1 dose, On Mon02/08/23 at 1330, EXP: 1900 02/09/23 Hazardous Chemotherapy Drug: Use appropriate PPE. Antineoplastic Irritant. New Bag/Syringe/Bottle 02/08/2023 2:42 PM EDT 1,600 mg ondansetron (PF) 8 mg injection (ZOFRAN) 8 mg, INTRAVENOUS, ONCE, 1 dose, On Mon02/08/23 at 1330 Given 02/08/2023 1:42 PM EDT 8 mg PACLitaxel-protein bound 195 mg in NaCl 0.9% (ABRAXANE) 195 mg (100 mg/m2 1.95 m2 Treatment Plan BSA from Recorded weight), INTRAVENOUS, at 78 mL/hr, Administer over 30 Minutes, ONCE, 1 dose, On Mon02/08/23 at 1330, EXP: 2100 02/08/23 Administer total dose over 30 minutes. Hazardous Chemotherapy Drug: Use appropriate PPE. Antineoplastic Irritant with Vesicant Potential. New Bag/Syringe/Bottle 02/08/2023 2:07 PM EDT 195 mg 78 mL/hr Inactive Administered Medications - up to 3 most recent administrations Medication Order MAR Action Action Date Dose Rate Site gemcitabine 1,600 mg in NaCl 0.9% 317.08 mL (GEMZAR) 1,600 mg (rounded from 1,608.75 mg = 825 mg/m2 1.95 m2 Treatment Plan BSA from Recorded weight), INTRAVENOUS, Administer over 30 Minutes, ONCE, 1 dose, On Mon03/01/23 at 1230, EXP:03/02/23 1830 RT Hazardous Chemotherapy Drug: Use appropriate PPE. Antineoplastic Irritant. New Bag/Syringe/Bottle 03/01/2023 1:25 PM EDT 1,600 mg ondansetron (PF) 8 mg injection (ZOFRAN) 8 mg, INTRAVENOUS, ONCE, 1 dose, On Mon03/01/23 at 1230 Given 03/01/2023 12:33 PM EDT 8 mg PACLitaxel-protein bound 195 mg in NaCl 0.9% (ABRAXANE) 195 mg (100 mg/m2 1.95 m2 Treatment Plan BSA from Recorded weight), INTRAVENOUS, at 78 mL/hr, Administer over 30 Minutes, ONCE, 1 dose, On Mon03/01/23 at 1230, EXP:03/01/23 2030 RT Administer total dose over 30 minutes. Hazardous Chemotherapy Drug: Use appropriate PPE. Antineoplastic Irritant with Vesicant Potential. New Bag/Syringe/Bottle 03/01/2023 12:51 PM EDT 195 mg 78 mL/hr Inactive Administered Medications - up to 3 most recent administrations Medication Order MAR Action Action Date Dose Rate Site gemcitabine 1,600 mg in NaCl 0.9% 317.08 mL (GEMZAR) 1,600 mg (rounded from 1,608.75 mg = 825 mg/m2 1.95 m2 Treatment Plan BSA from Recorded weight), INTRAVENOUS, Administer over 30 Minutes, ONCE, 1 dose, On Mon03/08/23 at 1430, EXP: 0630 03/10/23 Hazardous Chemotherapy Drug: Use appropriate PPE. Antineoplastic Irritant. New Bag/Syringe/Bottle 03/08/2023 3:30 PM EDT 1,600 mg ondansetron (PF) 8 mg injection (ZOFRAN) 8 mg, INTRAVENOUS, ONCE, 1 dose, On Mon03/08/23 at 1430 Given 03/08/2023 2:28 PM EDT 8 mg PACLitaxel-protein bound 195 mg in NaCl 0.9% (ABRAXANE) 195 mg (100 mg/m2 1.95 m2 Treatment Plan BSA from Recorded weight), INTRAVENOUS, at 78 mL/hr, Administer over 30 Minutes, ONCE, 1 dose, On Mon03/08/23 at 1430, EXP: 2230 03/08/23 Administer total dose over 30 minutes. Hazardous Chemotherapy Drug: Use appropriate PPE. Antineoplastic Irritant with Vesicant Potential. New Bag/Syringe/Bottle 03/08/2023 2:55 PM EDT 195 mg 78 mL/hr Inactive Administered Medications - up to 3 most recent administrations Medication Order MAR Action Action Date Dose Rate Site gemcitabine 1,592.25 mg in NaCl 0.9% 316.8762 mL (GEMZAR) 1,592.25 mg (825 mg/m2 1.93 m2 Treatment Plan BSA from Recorded weight), INTRAVENOUS, Administer over 30 Minutes, ONCE, 1 dose, On Mon04/05/23 at 1500, EXP: 0645 04/08/23 Hazardous Chemotherapy Drug: Use appropriate PPE. Antineoplastic Irritant. New Bag/Syringe/Ana Cristina le 04/05/2023 3:39 PM EST 1,592.25 mg ondansetron (PF) 8 mg injection (ZOFRAN) 8 mg, INTRAVENOUS, ONCE, 1 dose, On Mon04/05/23 at 1500 Given 04/05/2023 2:41 PM EST 8 mg PACLitaxel-protein bound 193 mg in NaCl 0.9% (ABRAXANE) 193 mg (100 mg/m2 1.93 m2 Treatment Plan BSA from Recorded weight), INTRAVENOUS, at 77.2 mL/hr, Administer over 30 Minutes, ONCE, 1 dose, On Mon04/05/23 at 1500, EXP: 2240 04/05/23 Administer total dose over 30 minutes. Hazardous Chemotherapy Drug: Use appropriate PPE. Antineoplastic Irritant with Vesicant Potential. New Bag/Syringe/Ana Cristina le 04/05/2023 3:05 PM EST 193 mg 77.2 mL/hr Inactive Administered Medications - up to 3 most recent administrations Medication Order MAR Action Action Date Dose Rate Site gemcitabine 1,930 mg in NaCl 0.9% 325.759 mL (GEMZAR) 1,930 mg (1,000 mg/m2 1.93 m2 Treatment Plan BSA from Recorded weight), INTRAVENOUS, Administer over 30 Minutes, ONCE, 1 dose, On Mon05/05/23 at 1400, EXP:05/06/231999 RT Hazardous Chemotherapy Drug: Use appropriate PPE. Antineoplastic Irritant. New Bag/Syringe/Bottle 05/05/2023 2:16 PM EST 1,930 mg ondansetron (PF) 8 mg injection (ZOFRAN) 8 mg, INTRAVENOUS, ONCE, 1 dose, On Mon05/05/23 at 1400 Given 05/05/2023 1:57 PM EST 8 mg Reason for Referral Specialty Diagnoses / Procedures Referred By Contac t Referred To Contact CT IMAGING Diagnoses 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) Procedures CT CHEST W IVCON DIAGNOSTIC COMPUTED TOMOGRAPHY THORAX W/CONTRAST Karamlou, Grace, MD [address] [place] [id number] Referral ID Status Reason Start Date Expiration Date Visits Requested Visits Authorized [id number] Authorized Auto-Generat ed Referral 2 03/24/2023 1 1 Specialty Diagnoses / Procedures Referred By Contac t Referred To Contact Diagnoses 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) Procedures CONSULT TO MEDICAL GENETICS - CANCER MEDICAL GENETICS COUNSELING EACH 30 MINUTES Grace Bess MD [address] [place] [address] [address] Referral ID Status Reason Start Date Expiration Date Visits Requested Visits Authorized [id number] Pending Review PCP Requested Referral Auto-Generate d Referral 2 02/22/2023 1 1 Specialty Diagnoses / Procedures Referred By Contac t Referred To Contact CT IMAGING Diagnoses 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) Procedures CT ABD/PEL W IVCON CT ABD & PELVIS W/CONTRAST Grace Bess MD [address] [place] [address] Imaging Referral ID Status Reason Start Date Expiration Date Visits Requested Visits Authorized [id number] Authorized Auto-Generat ed Referral 06/01/2022 06/10/2023 1 1 Referral ID Status Reason Start Date Expiration Date Visits Requested Visits Authorized [id number] Authorized Auto-Generat ed Referral 06/01/2022 06/10/2023 1 1 Referral ID Status Reason Start Date Expiration Date Visits Requested Visits Authorized [id number] Pending Review Auto-Generat ed Referral 08/03/2022 07/29/2023 1 1 Referral ID Status Reason Start Date Expiration Date Visits Requested Visits Authorized [id number] Pending Review Auto-Generat ed Referral 08/03/2022 07/29/2023 1 1 Referral ID Status Reason Start Date Expiration Date Visits Requested Visits Authorized [id number] Authorized Auto-Generat ed Referral 11/10/2022 10/29/2023 1 1 Referral ID Status Reason Start Date Expiration Date Visits Requested Visits Authorized [id number] Authorized Auto-Generat ed Referral 11/10/2022 10/29/2023 1 1 Specialty Diagnoses / Procedures Referred By Contac t Referred To Contact Endocrinology Diagnoses 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) Type 2 diabetes mellitus without complication, with long-term current use of insulin (HCC) Procedures CONSULT TO ENDOCRINOLOGY OFFICE/OUTPATIENT NEW HIGH MDM 60-74 MINUTES Greta Wetzel PA-C [address] [place] [address] [place] [address] Referral ID Status Reason Start Date Expiration Date Visits Requested Visits Authorized [id number] Authorized PCP Requested Referral 11/23/2022 11/23/2023 1 1 Specialty Diagnoses / Procedures Referred By Contac t Referred To Contact CT IMAGING Diagnoses Chest pain, unspecified type LINDSEY (dyspnea on exertion) 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) Anemia, unspecified type Type 2 diabetes mellitus without complication, with long-term current use of insulin (HCC) Procedures CT CHEST W IVCON PE DIAGNOSTIC COMPUTED TOMOGRAPHY THORAX W/CONTRAST Greta Wetzel PA-C [address] [place] [address] [place] [address] Ct Imaging Referral ID Status Reason Start Date Expiration Date Visits Requested Visits Authorized [id number] Pending Review Auto-Generat ed Referral 12/21/2022 01/20/2024 1 1 Specialty Diagnoses / Procedures Referred By Contac t Referred To Contact CT IMAGING Diagnoses 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) Procedures CT ABD/PEL W IVCON CT ABD & PELVIS W/CONTRAST Grace Bess MD [address] [place] [address] [address] [place] [id number] Referral ID Status Reason Start Date Expiration Date Visits Requested Visits Authorized [id number] Authorized Auto-Generat ed Referral 05/26/2023 06/03/2024 1 1 Specialty Diagnoses / Procedures Referred By Contac t Referred To Contact CT IMAGING Diagnoses 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) Procedures CT CHEST W IVCON DIAGNOSTIC COMPUTED TOMOGRAPHY THORAX W/CONTRAST Grace Bess MD [address] [place] [address] [address] [place] [id number] Referral ID Status Reason Start Date Expiration Date Visits Requested Visits Authorized [id number] Authorized Auto-Generat ed Referral 05/26/2023 06/03/2024 1 1 Referral ID Status Reason Start Date Expiration Date Visits Requested Visits Authorized [id number] Authorized Auto-Generat ed Referral 08/16/2023 08/31/2024 1 1 Referral ID Status Reason Start Date Expiration Date Visits Requested Visits Authorized [id number] Authorized Auto-Generat ed Referral 08/16/2023 08/31/2024 1 1 Chief Complaint and Reason for Visit Chief Complaint fall Additional Source Comments (unrecognized sect ion and content) No Status Records FoundNo Status Records FoundNo Status Records FoundNo Status Records FoundNo Status Records FoundNo Status Records FoundNo Status Records FoundNo Status Records FoundNo Status Records FoundNo Status Records Found INFORMATION SOURCE (unrecogn ized section and content) DATE CREATED AUTHOR 12/12/2019 [facility] DATE CREATED AUTHOR AUTHOR'S ORGANIZ ATION 04/16/2020 [facility] DATE CREATED AUTHOR AUTHOR'S ORGANIZ ATION 02/19/2021 [facility] DATE CREATED AUTHOR AUTHOR'S ORGANIZ ATION 03/16/2021 [facility] DATE CREATED AUTHOR AUTHOR'S ORGANIZ ATION 06/24/2021 [facility] DATE CREATED AUTHOR AUTHOR'S ORGANIZ ATION 09/27/2021 [facility] DATE CREATED AUTHOR AUTHOR'S ORGANIZ ATION 04/14/2022 [facility] DATE CREATED AUTHOR AUTHOR'S ORGANIZ ATION 01/17/2023 [facility] DATE CREATED AUTHOR AUTHOR'S ORGANIZ ATION 04/29/2023 [facility] DATE CREATED AUTHOR AUTHOR'S ORGANIZ ATION 10/13/2023 [facility] Source Comments (unrecognize d section and content) In the event this informatio n is protected by the Federal Confidentiality of Alcohol and Drug Abuse Patient Records regulations: The Federal rules restrict any use of the information to criminally investigate or prosecute any alcohol or drug abuse patient.[facility] the event this information is protected by the Federal Confidentiality of Alcohol and Drug Abuse Patient Records regulations: The Federal rules restrict any use of the information to criminally investigate or prosecute any alcohol or drug abuse patient.[facility] Center[facility] the event this information is protected by the Federal Confidentiality of Alcohol and Drug Abuse Patient Records regulations: The Federal rules restrict any use of the information to criminally investigate or prosecute any alcohol or drug abuse patient.[facility] Center[facility] the event this information is protected by the Federal Confidentiality of Alcohol and Drug Abuse Patient Records regulations: The Federal rules restrict any use of the information to criminally investigate or prosecute any alcohol or drug abuse patient.[facility] Center[facility] the event this information is protected by the Federal Confidentiality of Alcohol and Drug Abuse Patient Records regulations: The Federal rules restrict any use of the information to criminally investigate or prosecute any alcohol or drug abuse patient.[facility] Center[facility] the event this information is protected by the Federal Confidentiality of Alcohol and Drug Abuse Patient Records regulations: The Federal rules restrict any use of the information to criminally investigate or prosecute any alcohol or drug abuse patient.[facility] CenterIn the event this information is protected by the Federal Confidentiality of Alcohol and Drug Abuse Patient Records regulations: The Federal rules restrict any use of the information to criminally investigate or prosecute any alcohol or drug abuse patient.[facility] CenterIn the event this information is protected by the Federal Confidentiality of Alcohol and Drug Abuse Patient Records regulations: The Federal rules restrict any use of the information to criminally investigate or prosecute any alcohol or drug abuse patient.[facility] CenterIn the event this information is protected by the Federal Confidentiality of Alcohol and Drug Abuse Patient Records regulations: The Federal rules restrict any use of the information to criminally investigate or prosecute any alcohol or drug abuse patient.[facility] CenterIn the event this information is protected by the Federal Confidentiality of Alcohol and Drug Abuse Patient Records regulations: The Federal rules restrict any use of the information to criminally investigate or prosecute any alcohol or drug abuse patient.[facility] CenterIn the event this information is protected by the Federal Confidentiality of Alcohol and Drug Abuse Patient Records regulations: The Federal rules restrict any use of the information to criminally investigate or prosecute any alcohol or drug abuse patient.[facility] CenterIn the event this information is protected by the Federal Confidentiality of Alcohol and Drug Abuse Patient Records regulations: The Federal rules restrict any use of the information to criminally investigate or prosecute any alcohol or drug abuse patient.[facility] CenterIn the event this information is protected by the Federal Confidentiality of Alcohol and Drug Abuse Patient Records regulations: The Federal rules restrict any use of the information to criminally investigate or prosecute any alcohol or drug abuse patient.[facility] CenterIn the event this information is protected by the Federal Confidentiality of Alcohol and Drug Abuse Patient Records regulations: The Federal rules restrict any use of the information to criminally investigate or prosecute any alcohol or drug abuse patient.[facility] CenterIn the event this information is protected by the Federal Confidentiality of Alcohol and Drug Abuse Patient Records regulations: The Federal rules restrict any use of the information to criminally investigate or prosecute any alcohol or drug abuse patient.[facility] CenterIn the event this information is protected by the Federal Confidentiality of Alcohol and Drug Abuse Patient Records regulations: The Federal rules restrict any use of the information to criminally investigate or prosecute any alcohol or drug abuse patient.[facility] CenterIn the event this information is protected by the Federal Confidentiality of Alcohol and Drug Abuse Patient Records regulations: The Federal rules restrict any use of the information to criminally investigate or prosecute any alcohol or drug abuse patient.[facility] CenterIn the event this information is protected by the Federal Confidentiality of Alcohol and Drug Abuse Patient Records regulations: The Federal rules restrict any use of the information to criminally investigate or prosecute any alcohol or drug abuse patient.[facility] CenterIn the event this information is protected by the Federal Confidentiality of Alcohol and Drug Abuse Patient Records regulations: The Federal rules restrict any use of the information to criminally investigate or prosecute any alcohol or drug abuse patient.[facility] CenterIn the event this information is protected by the Federal Confidentiality of Alcohol and Drug Abuse Patient Records regulations: The Federal rules restrict any use of the information to criminally investigate or prosecute any alcohol or drug abuse patient.[facility] CenterIn the event this information is protected by the Federal Confidentiality of Alcohol and Drug Abuse Patient Records regulations: The Federal rules restrict any use of the information to criminally investigate or prosecute any alcohol or drug abuse patient.[facility] CenterIn the event this information is protected by the Federal Confidentiality of Alcohol and Drug Abuse Patient Records regulations: The Federal rules restrict any use of the information to criminally investigate or prosecute any alcohol or drug abuse patient.[facility] CenterIn the event this information is protected by the Federal Confidentiality of Alcohol and Drug Abuse Patient Records regulations: The Federal rules restrict any use of the information to criminally investigate or prosecute any alcohol or drug abuse patient.[facility] CenterIn the event this information is protected by the Federal Confidentiality of Alcohol and Drug Abuse Patient Records regulations: The Federal rules restrict any use of the information to criminally investigate or prosecute any alcohol or drug abuse patient.[facility] CenterIn the event this information is protected by the Federal Confidentiality of Alcohol and Drug Abuse Patient Records regulations: The Federal rules restrict any use of the information to criminally investigate or prosecute any alcohol or drug abuse patient.[facility] CenterIn the event this information is protected by the Federal Confidentiality of Alcohol and Drug Abuse Patient Records regulations: The Federal rules restrict any use of the information to criminally investigate or prosecute any alcohol or drug abuse patient.[facility] CenterIn the event this information is protected by the Federal Confidentiality of Alcohol and Drug Abuse Patient Records regulations: The Federal rules restrict any use of the information to criminally investigate or prosecute any alcohol or drug abuse patient.[facility] CenterIn the event this information is protected by the Federal Confidentiality of Alcohol and Drug Abuse Patient Records regulations: The Federal rules restrict any use of the information to criminally investigate or prosecute any alcohol or drug abuse patient.[facility] CenterIn the event this information is protected by the Federal Confidentiality of Alcohol and Drug Abuse Patient Records regulations: The Federal rules restrict any use of the information to criminally investigate or prosecute any alcohol or drug abuse patient.[facility] CenterIn the event this information is protected by the Federal Confidentiality of Alcohol and Drug Abuse Patient Records regulations: The Federal rules restrict any use of the information to criminally investigate or prosecute any alcohol or drug abuse patient.[facility] CenterIn the event this information is protected by the Federal Confidentiality of Alcohol and Drug Abuse Patient Records regulations: The Federal rules restrict any use of the information to criminally investigate or prosecute any alcohol or drug abuse patient.[facility] CenterIn the event this information is protected by the Federal Confidentiality of Alcohol and Drug Abuse Patient Records regulations: The Federal rules restrict any use of the information to criminally investigate or prosecute any alcohol or drug abuse patient.[facility] CenterIn the event this information is protected by the Federal Confidentiality of Alcohol and Drug Abuse Patient Records regulations: The Federal rules restrict any use of the information to criminally investigate or prosecute any alcohol or drug abuse patient.[facility] CenterIn the event this information is protected by the Federal Confidentiality of Alcohol and Drug Abuse Patient Records regulations: The Federal rules restrict any use of the information to criminally investigate or prosecute any alcohol or drug abuse patient.[facility] CenterIn the event this information is protected by the Federal Confidentiality of Alcohol and Drug Abuse Patient Records regulations: The Federal rules restrict any use of the information to criminally investigate or prosecute any alcohol or drug abuse patient.[facility] CenterIn the event this information is protected by the Federal Confidentiality of Alcohol and Drug Abuse Patient Records regulations: The Federal rules restrict any use of the information to criminally investigate or prosecute any alcohol or drug abuse patient.[facility] CenterIn the event this information is protected by the Federal Confidentiality of Alcohol and Drug Abuse Patient Records regulations: The Federal rules restrict any use of the information to criminally investigate or prosecute any alcohol or drug abuse patient.[facility] CenterIn the event this information is protected by the Federal Confidentiality of Alcohol and Drug Abuse Patient Records regulations: The Federal rules restrict any use of the information to criminally investigate or prosecute any alcohol or drug abuse patient.[facility] CenterIn the event this information is protected by the Federal Confidentiality of Alcohol and Drug Abuse Patient Records regulations: The Federal rules restrict any use of the information to criminally investigate or prosecute any alcohol or drug abuse patient.[facility] CenterIn the event this information is protected by the Federal Confidentiality of Alcohol and Drug Abuse Patient Records regulations: The Federal rules restrict any use of the information to criminally investigate or prosecute any alcohol or drug abuse patient.[facility] CenterIn the event this information is protected by the Federal Confidentiality of Alcohol and Drug Abuse Patient Records regulations: The Federal rules restrict any use of the information to criminally investigate or prosecute any alcohol or drug abuse patient.[facility] CenterIn the event this information is protected by the Federal Confidentiality of Alcohol and Drug Abuse Patient Records regulations: The Federal rules restrict any use of the information to criminally investigate or prosecute any alcohol or drug abuse patient.[facility] CenterIn the event this information is protected by the Federal Confidentiality of Alcohol and Drug Abuse Patient Records regulations: The Federal rules restrict any use of the information to criminally investigate or prosecute any alcohol or drug abuse patient.[facility] CenterIn the event this information is protected by the Federal Confidentiality of Alcohol and Drug Abuse Patient Records regulations: The Federal rules restrict any use of the information to criminally investigate or prosecute any alcohol or drug abuse patient.[facility] CenterIn the event this information is protected by the Federal Confidentiality of Alcohol and Drug Abuse Patient Records regulations: The Federal rules restrict any use of the information to criminally investigate or prosecute any alcohol or drug abuse patient.[facility] CenterIn the event this information is protected by the Federal Confidentiality of Alcohol and Drug Abuse Patient Records regulations: The Federal rules restrict any use of the information to criminally investigate or prosecute any alcohol or drug abuse patient.[facility] CenterIn the event this information is protected by the Federal Confidentiality of Alcohol and Drug Abuse Patient Records regulations: The Federal rules restrict any use of the information to criminally investigate or prosecute any alcohol or drug abuse patient.[facility] CenterIn the event this information is protected by the Federal Confidentiality of Alcohol and Drug Abuse Patient Records regulations: The Federal rules restrict any use of the information to criminally investigate or prosecute any alcohol or drug abuse patient.[facility] CenterIn the event this information is protected by the Federal Confidentiality of Alcohol and Drug Abuse Patient Records regulations: The Federal rules restrict any use of the information to criminally investigate or prosecute any alcohol or drug abuse patient.[facility] CenterIn the event this information is protected by the Federal Confidentiality of Alcohol and Drug Abuse Patient Records regulations: The Federal rules restrict any use of the information to criminally investigate or prosecute any alcohol or drug abuse patient.[facility] CenterIn the event this information is protected by the Federal Confidentiality of Alcohol and Drug Abuse Patient Records regulations: The Federal rules restrict any use of the information to criminally investigate or prosecute any alcohol or drug abuse patient.[facility] CenterIn the event this information is protected by the Federal Confidentiality of Alcohol and Drug Abuse Patient Records regulations: The Federal rules restrict any use of the information to criminally investigate or prosecute any alcohol or drug abuse patient.[facility] CenterIn the event this information is protected by the Federal Confidentiality of Alcohol and Drug Abuse Patient Records regulations: The Federal rules restrict any use of the information to criminally investigate or prosecute any alcohol or drug abuse patient.[facility] CenterIn the event this information is protected by the Federal Confidentiality of Alcohol and Drug Abuse Patient Records regulations: The Federal rules restrict any use of the information to criminally investigate or prosecute any alcohol or drug abuse patient.[facility] CenterIn the event this information is protected by the Federal Confidentiality of Alcohol and Drug Abuse Patient Records regulations: The Federal rules restrict any use of the information to criminally investigate or prosecute any alcohol or drug abuse patient.[facility] CenterIn the event this information is protected by the Federal Confidentiality of Alcohol and Drug Abuse Patient Records regulations: The Federal rules restrict any use of the information to criminally investigate or prosecute any alcohol or drug abuse patient.[facility] CenterIn the event this information is protected by the Federal Confidentiality of Alcohol and Drug Abuse Patient Records regulations: The Federal rules restrict any use of the information to criminally investigate or prosecute any alcohol or drug abuse patient.[facility] CenterIn the event this information is protected by the Federal Confidentiality of Alcohol and Drug Abuse Patient Records regulations: The Federal rules restrict any use of the information to criminally investigate or prosecute any alcohol or drug abuse patient.[facility] CenterIn the event this information is protected by the Federal Confidentiality of Alcohol and Drug Abuse Patient Records regulations: The Federal rules restrict any use of the information to criminally investigate or prosecute any alcohol or drug abuse patient.[facility] CenterIn the event this information is protected by the Federal Confidentiality of Alcohol and Drug Abuse Patient Records regulations: The Federal rules restrict any use of the information to criminally investigate or prosecute any alcohol or drug abuse patient.[facility] CenterIn the event this information is protected by the Federal Confidentiality of Alcohol and Drug Abuse Patient Records regulations: The Federal rules restrict any use of the information to criminally investigate or prosecute any alcohol or drug abuse patient.[facility] CenterIn the event this information is protected by the Federal Confidentiality of Alcohol and Drug Abuse Patient Records regulations: The Federal rules restrict any use of the information to criminally investigate or prosecute any alcohol or drug abuse patient.[facility] CenterIn the event this information is protected by the Federal Confidentiality of Alcohol and Drug Abuse Patient Records regulations: The Federal rules restrict any use of the information to criminally investigate or prosecute any alcohol or drug abuse patient.[facility] CenterIn the event this information is protected by the Federal Confidentiality of Alcohol and Drug Abuse Patient Records regulations: The Federal rules restrict any use of the information to criminally investigate or prosecute any alcohol or drug abuse patient.[facility] CenterIn the event this information is protected by the Federal Confidentiality of Alcohol and Drug Abuse Patient Records regulations: The Federal rules restrict any use of the information to criminally investigate or prosecute any alcohol or drug abuse patient.[facility] CenterIn the event this information is protected by the Federal Confidentiality of Alcohol and Drug Abuse Patient Records regulations: The Federal rules restrict any use of the information to criminally investigate or prosecute any alcohol or drug abuse patient.[facility] CenterIn the event this information is protected by the Federal Confidentiality of Alcohol and Drug Abuse Patient Records regulations: The Federal rules restrict any use of the information to criminally investigate or prosecute any alcohol or drug abuse patient.[facility] CenterIn the event this information is protected by the Federal Confidentiality of Alcohol and Drug Abuse Patient Records regulations: The Federal rules restrict any use of the information to criminally investigate or prosecute any alcohol or drug abuse patient.[facility] CenterIn the event this information is protected by the Federal Confidentiality of Alcohol and Drug Abuse Patient Records regulations: The Federal rules restrict any use of the information to criminally investigate or prosecute any alcohol or drug abuse patient.[facility] CenterIn the event this information is protected by the Federal Confidentiality of Alcohol and Drug Abuse Patient Records regulations: The Federal rules restrict any use of the information to criminally investigate or prosecute any alcohol or drug abuse patient.[facility] CenterIn the event this information is protected by the Federal Confidentiality of Alcohol and Drug Abuse Patient Records regulations: The Federal rules restrict any use of the information to criminally investigate or prosecute any alcohol or drug abuse patient.[facility] CenterIn the event this information is protected by the Federal Confidentiality of Alcohol and Drug Abuse Patient Records regulations: The Federal rules restrict any use of the information to criminally investigate or prosecute any alcohol or drug abuse patient.[facility] CenterIn the event this information is protected by the Federal Confidentiality of Alcohol and Drug Abuse Patient Records regulations: The Federal rules restrict any use of the information to criminally investigate or prosecute any alcohol or drug abuse patient.[facility] CenterIn the event this information is protected by the Federal Confidentiality of Alcohol and Drug Abuse Patient Records regulations: The Federal rules restrict any use of the information to criminally investigate or prosecute any alcohol or drug abuse patient.[facility] CenterIn the event this information is protected by the Federal Confidentiality of Alcohol and Drug Abuse Patient Records regulations: The Federal rules restrict any use of the information to criminally investigate or prosecute any alcohol or drug abuse patient.[facility] CenterIn the event this information is protected by the Federal Confidentiality of Alcohol and Drug Abuse Patient Records regulations: The Federal rules restrict any use of the information to criminally investigate or prosecute any alcohol or drug abuse patient.[facility] CenterIn the event this information is protected by the Federal Confidentiality of Alcohol and Drug Abuse Patient Records regulations: The Federal rules restrict any use of the information to criminally investigate or prosecute any alcohol or drug abuse patient.[facility] CenterIn the event this information is protected by the Federal Confidentiality of Alcohol and Drug Abuse Patient Records regulations: The Federal rules restrict any use of the information to criminally investigate or prosecute any alcohol or drug abuse patient.[facility] CenterIn the event this information is protected by the Federal Confidentiality of Alcohol and Drug Abuse Patient Records regulations: The Federal rules restrict any use of the information to criminally investigate or prosecute any alcohol or drug abuse patient.[facility] CenterIn the event this information is protected by the Federal Confidentiality of Alcohol and Drug Abuse Patient Records regulations: The Federal rules restrict any use of the information to criminally investigate or prosecute any alcohol or drug abuse patient.[facility] CenterIn the event this information is protected by the Federal Confidentiality of Alcohol and Drug Abuse Patient Records regulations: The Federal rules restrict any use of the information to criminally investigate or prosecute any alcohol or drug abuse patient.[facility] CenterIn the event this information is protected by the Federal Confidentiality of Alcohol and Drug Abuse Patient Records regulations: The Federal rules restrict any use of the information to criminally investigate or prosecute any alcohol or drug abuse patient.[facility] CenterIn the event this information is protected by the Federal Confidentiality of Alcohol and Drug Abuse Patient Records regulations: The Federal rules restrict any use of the information to criminally investigate or prosecute any alcohol or drug abuse patient.[facility] CenterIn the event this information is protected by the Federal Confidentiality of Alcohol and Drug Abuse Patient Records regulations: The Federal rules restrict any use of the information to criminally investigate or prosecute any alcohol or drug abuse patient.[facility] CenterIn the event this information is protected by the Federal Confidentiality of Alcohol and Drug Abuse Patient Records regulations: The Federal rules restrict any use of the information to criminally investigate or prosecute any alcohol or drug abuse patient.[facility] CenterIn the event this information is protected by the Federal Confidentiality of Alcohol and Drug Abuse Patient Records regulations: The Federal rules restrict any use of the information to criminally investigate or prosecute any alcohol or drug abuse patient.[facility] CenterIn the event this information is protected by the Federal Confidentiality of Alcohol and Drug Abuse Patient Records regulations: The Federal rules restrict any use of the information to criminally investigate or prosecute any alcohol or drug abuse patient.[facility] CenterIn the event this information is protected by the Federal Confidentiality of Alcohol and Drug Abuse Patient Records regulations: The Federal rules restrict any use of the information to criminally investigate or prosecute any alcohol or drug abuse patient.[facility] CenterIn the event this information is protected by the Federal Confidentiality of Alcohol and Drug Abuse Patient Records regulations: The Federal rules restrict any use of the information to criminally investigate or prosecute any alcohol or drug abuse patient.[facility] CenterIn the event this information is protected by the Federal Confidentiality of Alcohol and Drug Abuse Patient Records regulations: The Federal rules restrict any use of the information to criminally investigate or prosecute any alcohol or drug abuse patient.[facility] CenterIn the event this information is protected by the Federal Confidentiality of Alcohol and Drug Abuse Patient Records regulations: The Federal rules restrict any use of the information to criminally investigate or prosecute any alcohol or drug abuse patient.[facility] CenterIn the event this information is protected by the Federal Confidentiality of Alcohol and Drug Abuse Patient Records regulations: The Federal rules restrict any use of the information to criminally investigate or prosecute any alcohol or drug abuse patient.[facility] CenterIn the event this information is protected by the Federal Confidentiality of Alcohol and Drug Abuse Patient Records regulations: The Federal rules restrict any use of the information to criminally investigate or prosecute any alcohol or drug abuse patient.[facility] CenterIn the event this information is protected by the Federal Confidentiality of Alcohol and Drug Abuse Patient Records regulations: The Federal rules restrict any use of the information to criminally investigate or prosecute any alcohol or drug abuse patient.[facility] CenterIn the event this information is protected by the Federal Confidentiality of Alcohol and Drug Abuse Patient Records regulations: The Federal rules restrict any use of the information to criminally investigate or prosecute any alcohol or drug abuse patient.[facility] CenterIn the event this information is protected by the Federal Confidentiality of Alcohol and Drug Abuse Patient Records regulations: The Federal rules restrict any use of the information to criminally investigate or prosecute any alcohol or drug abuse patient.[facility] CenterIn the event this information is protected by the Federal Confidentiality of Alcohol and Drug Abuse Patient Records regulations: The Federal rules restrict any use of the information to criminally investigate or prosecute any alcohol or drug abuse patient.[facility] CenterIn the event this information is protected by the Federal Confidentiality of Alcohol and Drug Abuse Patient Records regulations: The Federal rules restrict any use of the information to criminally investigate or prosecute any alcohol or drug abuse patient.[facility] CenterIn the event this information is protected by the Federal Confidentiality of Alcohol and Drug Abuse Patient Records regulations: The Federal rules restrict any use of the information to criminally investigate or prosecute any alcohol or drug abuse patient.[facility] CenterIn the event this information is protected by the Federal Confidentiality of Alcohol and Drug Abuse Patient Records regulations: The Federal rules restrict any use of the information to criminally investigate or prosecute any alcohol or drug abuse patient.[facility] CenterIn the event this information is protected by the Federal Confidentiality of Alcohol and Drug Abuse Patient Records regulations: The Federal rules restrict any use of the information to criminally investigate or prosecute any alcohol or drug abuse patient.[facility] CenterIn the event this information is protected by the Federal Confidentiality of Alcohol and Drug Abuse Patient Records regulations: The Federal rules restrict any use of the information to criminally investigate or prosecute any alcohol or drug abuse patient.[facility] CenterIn the event this information is protected by the Federal Confidentiality of Alcohol and Drug Abuse Patient Records regulations: The Federal rules restrict any use of the information to criminally investigate or prosecute any alcohol or drug abuse patient.[facility] CenterIn the event this information is protected by the Federal Confidentiality of Alcohol and Drug Abuse Patient Records regulations: The Federal rules restrict any use of the information to criminally investigate or prosecute any alcohol or drug abuse patient.[facility] CenterIn the event this information is protected by the Federal Confidentiality of Alcohol and Drug Abuse Patient Records regulations: The Federal rules restrict any use of the information to criminally investigate or prosecute any alcohol or drug abuse patient.[facility] CenterIn the event this information is protected by the Federal Confidentiality of Alcohol and Drug Abuse Patient Records regulations: The Federal rules restrict any use of the information to criminally investigate or prosecute any alcohol or drug abuse patient.[facility] CenterIn the event this information is protected by the Federal Confidentiality of Alcohol and Drug Abuse Patient Records regulations: The Federal rules restrict any use of the information to criminally investigate or prosecute any alcohol or drug abuse patient.[facility] CenterIn the event this information is protected by the Federal Confidentiality of Alcohol and Drug Abuse Patient Records regulations: The Federal rules restrict any use of the information to criminally investigate or prosecute any alcohol or drug abuse patient.[facility] CenterIn the event this information is protected by the Federal Confidentiality of Alcohol and Drug Abuse Patient Records regulations: The Federal rules restrict any use of the information to criminally investigate or prosecute any alcohol or drug abuse patient.[facility] CenterIn the event this information is protected by the Federal Confidentiality of Alcohol and Drug Abuse Patient Records regulations: The Federal rules restrict any use of the information to criminally investigate or prosecute any alcohol or drug abuse patient.[facility] CenterIn the event this information is protected by the Federal Confidentiality of Alcohol and Drug Abuse Patient Records regulations: The Federal rules restrict any use of the information to criminally investigate or prosecute any alcohol or drug abuse patient.[facility] CenterIn the event this information is protected by the Federal Confidentiality of Alcohol and Drug Abuse Patient Records regulations: The Federal rules restrict any use of the information to criminally investigate or prosecute any alcohol or drug abuse patient.[facility] CenterIn the event this information is protected by the Federal Confidentiality of Alcohol and Drug Abuse Patient Records regulations: The Federal rules restrict any use of the information to criminally investigate or prosecute any alcohol or drug abuse patient.[facility] CenterIn the event this information is protected by the Federal Confidentiality of Alcohol and Drug Abuse Patient Records regulations: The Federal rules restrict any use of the information to criminally investigate or prosecute any alcohol or drug abuse patient.[facility] CenterIn the event this information is protected by the Federal Confidentiality of Alcohol and Drug Abuse Patient Records regulations: The Federal rules restrict any use of the information to criminally investigate or prosecute any alcohol or drug abuse patient.[facility] CenterIn the event this information is protected by the Federal Confidentiality of Alcohol and Drug Abuse Patient Records regulations: The Federal rules restrict any use of the information to criminally investigate or prosecute any alcohol or drug abuse patient.[facility] CenterIn the event this information is protected by the Federal Confidentiality of Alcohol and Drug Abuse Patient Records regulations: The Federal rules restrict any use of the information to criminally investigate or prosecute any alcohol or drug abuse patient.[facility] CenterIn the event this information is protected by the Federal Confidentiality of Alcohol and Drug Abuse Patient Records regulations: The Federal rules restrict any use of the information to criminally investigate or prosecute any alcohol or drug abuse patient.[facility] CenterIn the event this information is protected by the Federal Confidentiality of Alcohol and Drug Abuse Patient Records regulations: The Federal rules restrict any use of the information to criminally investigate or prosecute any alcohol or drug abuse patient.[facility] CenterIn the event this information is protected by the Federal Confidentiality of Alcohol and Drug Abuse Patient Records regulations: The Federal rules restrict any use of the information to criminally investigate or prosecute any alcohol or drug abuse patient.[facility] CenterIn the event this information is protected by the Federal Confidentiality of Alcohol and Drug Abuse Patient Records regulations: The Federal rules restrict any use of the information to criminally investigate or prosecute any alcohol or drug abuse patient.[facility] CenterIn the event this information is protected by the Federal Confidentiality of Alcohol and Drug Abuse Patient Records regulations: The Federal rules restrict any use of the information to criminally investigate or prosecute any alcohol or drug abuse patient.[facility] CenterIn the event this information is protected by the Federal Confidentiality of Alcohol and Drug Abuse Patient Records regulations: The Federal rules restrict any use of the information to criminally investigate or prosecute any alcohol or drug abuse patient.[facility] CenterIn the event this information is protected by the Federal Confidentiality of Alcohol and Drug Abuse Patient Records regulations: The Federal rules restrict any use of the information to criminally investigate or prosecute any alcohol or drug abuse patient.[facility] CenterIn the event this information is protected by the Federal Confidentiality of Alcohol and Drug Abuse Patient Records regulations: The Federal rules restrict any use of the information to criminally investigate or prosecute any alcohol or drug abuse patient.[facility] CenterIn the event this information is protected by the Federal Confidentiality of Alcohol and Drug Abuse Patient Records regulations: The Federal rules restrict any use of the information to criminally investigate or prosecute any alcohol or drug abuse patient.[facility] CenterIn the event this information is protected by the Federal Confidentiality of Alcohol and Drug Abuse Patient Records regulations: The Federal rules restrict any use of the information to criminally investigate or prosecute any alcohol or drug abuse patient.[facility] CenterIn the event this information is protected by the Federal Confidentiality of Alcohol and Drug Abuse Patient Records regulations: The Federal rules restrict any use of the information to criminally investigate or prosecute any alcohol or drug abuse patient.[facility] CenterIn the event this information is protected by the Federal Confidentiality of Alcohol and Drug Abuse Patient Records regulations: The Federal rules restrict any use of the information to criminally investigate or prosecute any alcohol or drug abuse patient.[facility] CenterIn the event this information is protected by the Federal Confidentiality of Alcohol and Drug Abuse Patient Records regulations: The Federal rules restrict any use of the information to criminally investigate or prosecute any alcohol or drug abuse patient.[facility] CenterIn the event this information is protected by the Federal Confidentiality of Alcohol and Drug Abuse Patient Records regulations: The Federal rules restrict any use of the information to criminally investigate or prosecute any alcohol or drug abuse patient.[facility] Reason for Visit (unrecogniz ed section and content) Reason Comments Question Reason Comments Opened In Error Reason Comments Care Coordination Treatment questions Reason Comments Care Coordination Follow up question Reason Comments Radiology Pre Procedure Instructions Reason Comments Pancreatic Cancer 1 year follow up Reason Comments Care Coordination Antiemetics for abdirashid tment Reason Comments First Time Treatment Education Reason Comments Pancreatic Cancer Treatment visit Reason Comments Benefits Investigation Reason Comments Care Coordination Binding Cutter referral Reason Comments Nutrition Assessment Reason Comments Care Coordination Antiemetics transfer red to Drug [facility] [place] Reason Comments Care Coordination Follow up call Reason Comments Care Coordination C1D1 treatment follo w up call Reason Comments Pancreatic Cancer 1 week follow Reason Comments Pancreatic Cancer Reason Comments Nutrition Counseling Specialty Diagnoses / Procedures [facility] Referred To Contact Diagnoses 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) Grace Bess MD [address] [place] [address] Luis Miguel Delgado [address] [place] [address] Referral ID Status Reason Start Date Expiration Date V isits Requested Visits Authorized [id number] Authorized 02/22/2022 05/23/2022 99 99 Reason Comments Care Coordination Stool results Reason Comments Results Reason Comments Care Coordination Medication clarifica tion Reason Comments Pancreatic Cancer 2 week follow up Reason Comments Care Coordination Tumor marker results Reason Comments Pancreatic Cancer Treatment visit/port draw Reason Comments Orders Reason Comments Pancreatic Cancer Follow up/port draw Reason Comments Pancreatic Cancer 5 week follow up Reason Comments Refill Request Reason Comments Pancreatic Cancer Followup/port draw Specialty Diagnoses / Procedures [facility] Referred To Contact Hematology / HEMATOLOGY/ONCOLOGY Diagnoses 6 week follow up lab port draw 09/26- R/S From 09/30 Called Spoke With Pt Regarding This Appt 09/07-R/S From 09/15 Called Spoke With Pt Spouse She Req This Date/Time Procedures LAB/PORT Grace Bess MD [address] [place] [address] Luis Miguel Delgado [address] [place] [address] Referral ID Status Reason Start Date Expiration Date V isits Requested Visits Authorized [id number] Authorized 09/28/2022 05/21/2023 99 99 Reason Comments Research IRB# [id number] Informed Consent Reason Comments Care Coordination CT results Reason Comments Pancreatic Cancer 6 week follow up Reason Comments Care Coordination ER recommendation Reason Comments Pancreatic Cancer Reason Comments Future Appointment Reason Comments Pancreatic Cancer 5 day follow up Specialty Diagnoses / Procedures Referred By Contac t Referred To Contact Hematology / HEMATOLOGY/ONCOLOGY Diagnoses 6 week follow up lab port draw 09/26- R/S From 09/30 Called Spoke With Pt Regarding This Appt 09/07-R/S From 09/15 Called Spoke With Pt Spouse She Req This Date/Time Procedures LAB/PORT Grace Bess MD [address] [place] [address] Luis Miguel [place] [address] [place] [address] Reason Comments CVAD Access Reason Comments Care Coordination CT results Reason Comments Pancreatic Cancer Treatment visit/port draw Reason Comments Pancreatic Cancer 1 week follow up Reason Comments Clinical Update Reason Comments Results Care Coordination Tumor marker results Reason Comments Pancreatic Cancer OTV Reason Comments Pancreatic Cancer Reason Comments Care Coordination Lab results Referral ID Status Reason Start Date Expiration Date V isits Requested Visits Authorized [id number] Authorized 05/24/2023 08/22/2023 99 99 Reason Comments Care Coordination Appointment cancella tion Reason Comments Care Coordination cough Reason Comments Lab Orders Reason Comments Pancreatic Cancer 2 week follow up Reason Comments Radiology US Reason Comments Care Coordination CXR results Care Teams (unrecognized sec tion and content) Cabinet Maker Relationship Specialty Start Date End Date Giovanni Salinas II [address] [facility] [address] [place] [address] PCP - General Internal Medicine 11/29/19 César Leiva [address] [facility] [address] [place] [address] Endocrinology 05/08/20 Cabinet Maker Relationship Specialty Start Date End Date Giovanni Salinas II [address] [place] [address] [place] [address] PCP - General Internal Medicine 11/29/19 Cali, Ahmad Firas [address] [place] [address] [place] [address] Endocrinology 05/08/20 Cabinet Maker Relationship Specialty Start Date End Date Giovanni Salinas II [address] [place] [address] [place] [address] PCP - General Internal Medicine 11/29/19 Cali Rosamaribel Firas [address] [place] [address] [place] [address] Endocrinology 05/08/20 Cabinet Maker Relationship Specialty Start Date End Date Giovanni Salinas II [address] [place] [address] [place] [address] PCP - General Internal Medicine 11/29/19 Cali Rosamaribel Firas [address] [place] [address] [place] [address] Endocrinology 05/08/20 Cabinet Maker Relationship Specialty Start Date End Date Giovanni Salinas II [address] [place] [address] [place] [address] PCP - General Internal Medicine 11/29/19 Cali César Firas [address] [place] [address] [place] [address] Endocrinology 05/08/20 Cabinet Maker Relationship Specialty Start Date End Date Giovanni Salinas II [address] [place] [address] [place] [address] PCP - General Internal Medicine 11/29/19 César Leiva Firas [address] [place] [address] [place] [address] Endocrinology 05/08/20 Cabinet Maker Relationship Specialty Start Date End Date Giovanni Salinas II [address] [place] [address] [place] [address] PCP - General Internal Medicine 11/29/19 CaliRosa lindmaribel Firas [address] [place] [address] [place] [address] Endocrinology 05/08/20 Cabinet Maker Relationship Specialty Start Date End Date Giovanni Salinas II [address] [place] [address] [place] [address] PCP - General Internal Medicine 11/29/19 Cali Mehreenailyn Firas [address] [place] [address] [place] [address] Endocrinology 05/08/20 Cabinet Maker Relationship Specialty Start Date End Date Giovanni Salinas II [address] [place] [address] [place] [address] PCP - General Internal Medicine 11/29/19 Cali Rosamaribel Firas [address] [place] [address] [place] [address] Endocrinology 05/08/20 Josephine Salomon RN [address] [place] [address] Specialty Railroad Accountant Hematology/Oncology 03/04/22 Grace Bess MD [address] [email or web address] [place] [address] Physician Hematology/Oncology 03/04/22 Greta Wetzel, PA-C [address] [place] [address] Physician Sports Editor Hematology/Oncology 03/04/22 Cabinet Maker Relationship Specialty Start Date End Date Giovanni Salinas II [address] [place] [address] [place] [address] PCP - General Internal Medicine 11/29/19 César Leiva [address] [place] [address] [place] [address] Endocrinology 05/08/20 Josephine Salomon, RN [address] [place] [address] Specialty Railroad Accountant Hematology/Oncology 03/04/22 Grace Bess MD [address] [place] [address] Physician Hematology/Oncology 03/04/22 Greta Wetzel PA-C [address] [place] [address] Physician Sports Editor Hematology/Oncology 03/04/22 Cabinet Maker Relationship Specialty Start Date End Date Giovanni Salinas II [address] [facility] [address] [place] [address] PCP - General Internal Medicine 11/29/19 César Leiva [address] [place] [address] [place] [address] Endocrinology 05/08/20 Josephnie Salomon RN [address] [place] [address] Specialty Railroad Accountant Hematology/Oncology 03/04/22 Grace Bess MD [address] [place] [address] Physician Hematology/Oncology 03/04/22 Greta Wetzel PA-C [address] [place] [address] Physician Sports Editor Hematology/Oncology 03/04/22 Cabinet Maker Relationship Specialty Start Date End Date Giovanni Salinas II [address] [place] [address] [place] [address] PCP - General Internal Medicine 11/29/19 César Leiva [address] [place] [address] [place] [address] Endocrinology 05/08/20 Josephine Salomon RN [address] [place] [address] Specialty Railroad Accountant Hematology/Oncology 03/04/22 Grace Bess MD [address] [place] [address] Physician Hematology/Oncology 03/04/22 Greta Wetzel PA-C [address] [place] [address] Physician Sports Editor Hematology/Oncology 03/04/22 Cabinet Maker Relationship Specialty Start Date End Date Giovanni Salinas II [address] [facility] [address] [place] [address] PCP - General Internal Medicine 11/29/19 César Leiva [address] [facility] [address] [place] [address] Endocrinology 05/08/20 Josephine Salomon RN [address] [place] [address] Specialty Railroad Accountant Hematology/Oncology 03/04/22 Grace Bess MD [address] [place] [address] Physician Hematology/Oncology 03/04/22 Greta Wetzel PA-C [address] [place] [address] Physician Sports Editor Hematology/Oncology 03/04/22 Cabinet Maker Relationship Specialty Start Date End Date Giovanni Salinas II [address] [place] [address] [place] [address] PCP - General Internal Medicine 11/29/19 [facility] [address] [place] [address] [place] [address] Endocrinology 05/08/20 Josephine Salomon RN [address] [facility] [place] [address] Specialty Railroad Accountant Hematology/Oncology 03/04/22 Grace Bess MD [address] [place] [address] Physician Hematology/Oncology 03/04/22 Greta Wetzel PA-C [address] [facility] [place] [address] Physician Sports Editor Hematology/Oncology 03/04/22 Cabinet Maker Relationship Specialty Start Date End Date Giovanni Salinas II [address] [place] [address] [place] [address] PCP - General Internal Medicine 11/29/19 César Leiva [address] [place] [address] [place] [address] Endocrinology 05/08/20 Josephine Salomon RN [address] [facility] [place] [address] Specialty Railroad Accountant Hematology/Oncology 03/04/22 Grace Bess MD [address] [facility] [place] [address] Physician Hematology/Oncology 03/04/22 Greta Wetzel PA-C [address] [facility] [place] [address] Physician Sports Editor Hematology/Oncology 03/04/22 Cabinet Maker Relationship Specialty Start Date End Date Giovanni Salinas Raul II [address] [place] [place] [address] PCP - General Internal Medicine 11/29/19 [facility] [address] [place] [address] [place] [address] Endocrinology 05/08/20 Josephine Salomon RN [address] [facility] [place] [address] Specialty Railroad Accountant Hematology/Oncology 03/04/22 Grace Bess MD [address] [place] [address] Physician Hematology/Oncology 03/04/22 Greta Wetzel, PALaurenC [address] [facility] [address] Physician Sports Editor Hematology/Oncology 03/04/22 Cabinet Maker Relationship Specialty Start Date End Date Giovanni Salinas Raul II [address] [place] [address] [place] [address] PCP - General Internal Medicine 11/29/19 [facility] [address] [place] [address] [place] [address] Endocrinology 05/08/20 Josephine Salomon RN [address] [facility] [place] [address] Specialty Railroad Accountant Hematology/Oncology 03/04/22 Grace Bess MD [address] [facility] [place] [address] Physician Hematology/Oncology 03/04/22 Greta Wetzel PALaurenC [address] [facility] [place] [address] Physician Sports Editor Hematology/Oncology 03/04/22 Cabinet Maker Relationship Specialty Start Date End Date Giovanni Salinas Raul II [address] [place] [address] [place] [address] PCP - General Internal Medicine 11/29/[address] [facility] [address] [place] [address] [place] [address] Endocrinology 05/08/20 Josephine Salomon RN [address] [facility] [place] [address] Specialty Railroad Accountant Hematology/Oncology 03/04/22 Grace Bess MD [address] [place] [address] Physician Hematology/Oncology 03/04/22 Greta Wetzel PA-C [address] [facility] [place] [address] Physician Sports Editor Hematology/Oncology 03/04/22 Cabinet Maker Relationship Specialty Start Date End Date Giovanni Salinas Raul II [address] [place] [place] [address] PCP - General Internal Medicine 11/29/[address] [address] [place] [address] [place] [address] Endocrinology 05/08/20 Josephine Salomon RN [address] [facility] [place] [address] Specialty Railroad Accountant Hematology/Oncology 03/04/22 Grace Bess MD [address] [facility] [place] [address] Physician Hematology/Oncology 03/04/22 Greta Wetzel PA-C [address] [facility] [place] [address] Physician Sports Editor Hematology/Oncology 03/04/22 Cabinet Maker Relationship Specialty Start Date End Date Giovanni Salinas Raul II [address] [place] [place] [address] PCP - General Internal Medicine 11/29/19 [facility] [address] [place] [address] Endocrinology 05/08/20 Josephine Salomon RN [address] [facility] [place] [address] Specialty Railroad Accountant Hematology/Oncology 03/04/22 Grace Bess MD [address] [place] [address] Physician Hematology/Oncology 03/04/22 Greta Wetzel PALaurenC [address] [facility] [place] [address] Physician Sports Editor Hematology/Oncology 03/04/22 Cabinet Maker Relationship Specialty Start Date End Date Giovanni Salinas Raul II [address] [place] [place] [address] PCP - General Internal Medicine 11/29/19 [facility] [place] [address] [place] [address] [place] [address] Endocrinology 05/08/20 Josephine Salomon RN [address] [facility] [place] [address] Specialty Railroad Accountant Hematology/Oncology 03/04/22 Grace Bess MD [address] [facility] [place] [address] Physician Hematology/Oncology 03/04/22 Greta Wetzel PA-C [address] [facility] [place] [address] Physician Sports Editor Hematology/Oncology 03/04/22 Cabinet Maker Relationship Specialty Start Date End Date Giovanni Salinas II [address] [place] [place] [address] PCP - General Internal Medicine 11/29/19 CaliCésar [facility] [address] [place] [place] [address] Endocrinology 05/08/20 Josephine Salomon RN [address] [facility] [place] [address] Specialty Railroad Accountant Hematology/Oncology 03/04/22 Grace Bess MD [address] [facility] [place] [address] Physician Hematology/Oncology 03/04/22 Greta Wetzel PA-C [address] [facility] [place] [address] Physician Sports Editor Hematology/Oncology 03/04/22 Cabinet Maker Relationship Specialty Start Date End Date Giovanni Salinas II [address] [place] [place] [address] PCP - General Internal Medicine 11/29/19 CaliCésar [address] [place] [address] [place] [address] Endocrinology 05/08/20 Josephine Salomon RN [address] [facility] [place] [place] [address] Specialty Railroad Accountant Hematology/Oncology 03/04/22 Grace Bess MD [address] [facility] [place] [address] Physician Hematology/Oncology 03/04/22 Greta Wetzel PA-C [address] [facility] [place] [place] [address] Physician Sports Editor Hematology/Oncology 03/04/22 Cabinet Maker Relationship Specialty Start Date End Date Giovanni Salinas II [address] [place] [address] [place] [address] PCP - General Internal Medicine 11/29/19 [facility] [address] [place] [place] [address] Endocrinology 05/08/20 Josephine Salomon RN [address] [facility] [place] [place] [address] Specialty Railroad Accountant Hematology/Oncology 03/04/22 Grace Bess MD [address] [place] [address] Physician Hematology/Oncology 03/04/22 Greta Wetzel PA-C [address] [facility] [place] [place] [address] Physician Sports Editor Hematology/Oncology 03/04/22 Cabinet Maker Relationship Specialty Start Date End Date Brad Giovanni B II [address] [place] [address] [place] [address] PCP - General Internal Medicine 11/29/19 César Leiva [address] [place] [place] [address] Endocrinology 05/08/20 Josephine Salomon RN [address] [facility] [place] [place] [address] Specialty Railroad Accountant Hematology/Oncology 03/04/22 Grace Bess MD [address] [place] [address] Physician Hematology/Oncology 03/04/22 Greta Wetzel PA-C [address] [facility] [place] [address] Physician Sports Editor Hematology/Oncology 03/04/22 Cabinet Maker Relationship Specialty Start Date End Date Giovanni Salinas II [address] [place] [address] [place] [address] PCP - General Internal Medicine 11/29/19 César Leiva MD [address] [place] [address] Endocrinology 05/08/20 Josephine Salomon RN [address] [facility] [place] [address] Specialty Railroad Accountant Hematology/Oncology 03/04/22 Grace Bess MD [address] [place] [address] Physician Hematology/Oncology 03/04/22 Greta Wetzel PA-C [address] [facility] [place] [address] Physician Sports Editor Hematology/Oncology 03/04/22 Cabinet Maker Relationship Specialty Start Date End Date Giovanni Salinas II [address] [place] [address] [place] [address] PCP - General Internal Medicine 11/29/19 César Leiva MD [address] [place] [address] Endocrinology 05/08/20 Josephine Salomon RN [address] [facility] [place] [address] Specialty Railroad Accountant Hematology/Oncology 03/04/22 Grace Bess MD [address] [facility] [place] [address] Physician Hematology/Oncology 03/04/22 Greta Wetzel PA-C [address] [facility] [place] [address] Physician Sports Editor Hematology/Oncology 03/04/22 Cabinet Maker Relationship Specialty Start Date End Date Giovanni Salinas II [address] [facility] [address] [place] [address] PCP - General Internal Medicine 11/29/19 César Leiva MD [address] [place] [address] Endocrinology 05/08/20 Josephine Salomon, RN [address] [facility] [place] [address] Specialty Railroad Accountant Hematology/Oncology 03/04/22 Grace Bess MD [address] [place] [address] Physician Hematology/Oncology 03/04/22 Greta Wetzel PA-C [address] [facility] [place] [address] Physician Sports Editor Hematology/Oncology 03/04/22 Cabinet Maker Relationship Specialty Start Date End Date Giovanni Salinas II [address] [facility] [address] [place] [address] PCP - General Internal Medicine 11/29/19 César Leiva MD [address] [place] [address] Endocrinology 05/08/20 Josephine Salomon, RN [address] [facility] [place] [address] Specialty Railroad Accountant Hematology/Oncology 03/04/22 Grace Bess MD [address] [place] [address] Physician Hematology/Oncology 03/04/22 Greta Wetzel PA-C [address] [facility] [place] [address] Physician Sports Editor Hematology/Oncology 03/04/22 Cabinet Maker Relationship Specialty Start Date End Date Giovanni Salinas II [address] [facility] [address] [place] [address] PCP - General Internal Medicine 11/29/19 César Leiva MD [address] [place] [address] Endocrinology 05/08/20 Josephine Salomon RN [address] [facility] [place] [address] Specialty Railroad Accountant Hematology/Oncology 03/04/22 Grace Bess MD [address] [facility] [place] [address] Physician Hematology/Oncology 03/04/22 Greta Wetzel PA-C [address] [facility] [place] [address] Physician Sports Editor Hematology/Oncology 03/04/22 Cabinet Maker Relationship Specialty Start Date End Date Giovanni Salinas II [address] [facility] [address] [place] [address] PCP - General Internal Medicine 11/29/19 César Leiva MD [address] [place] [address] Endocrinology 05/08/20 Josephine Salomon RN [address] [facility] [place] [address] [employer] Accountant Hematology/Oncology 03/04/22 Grace Bess MD [address] [place] [address] Physician Hematology/Oncology 03/04/22 Greta Wetzel PA-C [address] [facility] [place] [address] Physician Sports Editor Hematology/Oncology 03/04/22 Cabinet Maker Relationship Specialty Start Date End Date Giovanni Salinas II [address] [facility] [address] [place] [address] PCP - General Internal Medicine 11/29/19 César Leiva MD [address] [place] [address] Endocrinology 05/08/20 Josephine Salomon RN [address] [facility] [place] [place] [address] [address] Accountant Hematology/Oncology 03/04/22 Grace Bess MD [address] [place] [address] Physician Hematology/Oncology 03/04/22 Greta Wetzel PA-C [address] [facility] [place] [address] Physician Sports Editor Hematology/Oncology 03/04/22 Cabinet Maker Relationship Specialty Start Date End Date Giovanni Salinas II [address] [facility] [address] [place] [address] PCP - General Internal Medicine 11/29/19 César Leiva MD [address] [place] [address] Endocrinology 05/08/20 Josephine Salomon RN [address] [facility] [place] [place] [address] [address] Accountant Hematology/Oncology 03/04/22 Grace Bess MD [address] [place] [address] Physician Hematology/Oncology 03/04/22 Greta Wetzel PA-C [address] [facility] [place] [address] Physician Sports Editor Hematology/Oncology 03/04/22 Cabinet Maker Relationship Specialty Start Date End Date Giovanni Salinas II [address] [place] [place] [address] PCP - General Internal Medicine 11/29/19 César Leiva MD [address] [place] [address] Endocrinology 05/08/20 Josephine Salomon RN [address] [facility] [place] [address] [employer] Accountant Hematology/Oncology 03/04/22 Grace Bess MD [address] [facility] [place] [address] Physician Hematology/Oncology 03/04/22 Greta Wtezel PA-C [address] [facility] [place] [address] Physician Sports Editor Hematology/Oncology 03/04/22 Cabinet Maker Relationship Specialty Start Date End Date Giovanni Salinas II [address] [place] [address] [place] [address] PCP - General Internal Medicine 11/29/19 César Leiva MD [address] [place] [address] Endocrinology 05/08/20 Josephine Salomon RN [address] [facility] [place] [address] [address] Accountant Hematology/Oncology 03/04/22 Grace Bess MD [address] [place] [address] Physician Hematology/Oncology 03/04/22 Greta Wetzel PA-C [address] [place] [address] [place] [address] Physician Sports Editor Hematology/Oncology 03/04/22 Cabinet Maker Relationship Specialty Start Date End Date Giovanni Salinas II [address] [place] [address] [place] [address] PCP - General Internal Medicine 11/29/19 César Leiva MD [address] [place] [address] Endocrinology 05/08/20 Josephine Salomon, RN [address] [place] [address] [place] [address] Special[address] [employer] Accountant Hematology/Oncology 03/04/22 Grace Bess MD [address] [place] [address] [place] [address] Physician Hematology/Oncology 03/04/22 Greta Wetzel PA-C [address] [place] [address] [place] [address] Physician Sports Editor Hematology/Oncology 03/04/22 Cabinet Maker Relationship Specialty Start Date End Date Giovanni Salinas II [address] [place] [place] [address] PCP - General Internal Medicine 11/29/19 César Leiva MD [address] [place] [address] Endocrinology 05/08/20 Josephine Salomon RN [address] [facility] [address] [place], [place] [address]370 Specialty Railroad Accountant Hematology/Oncology 03/04/22 Grace Bess MD [address] [facility] [place] [address] Physician Hematology/Oncology 03/04/22 Greta Wetzel PA-C [address] [place] [address] [place] [address] Physician Sports Editor Hematology/Oncology 03/04/22 Cabinet Maker Relationship Specialty Start Date End Date Giovanni Salinas II [address] [place] [address] [place] [address] PCP - General Internal Medicine 11/29/19 César Leiva MD [address] [place] [address] Endocrinology 05/08/20 Josephine Salomon RN [address] [facility] [place] [address] Special[address] Accountant Hematology/Oncology 03/04/22 Grace Bess MD 417 [facility] [place] [address] Physician Hematology/Oncology 03/04/22 Greta Wetzel PA-C [address] [facility] [place] [address] Physician Sports Editor Hematology/Oncology 03/04/22 Cabinet Maker Relationship Specialty Start Date End Date Giovanni Salinas II [address] [place] [address] [place] [address] PCP - General Internal Medicine 11/29/19 César Leiva MD [address] [place] [address] Endocrinology 05/08/20 Josephine Salomon, RN [address] [facility] [place] [address] Specialty [address] Accountant Hematology/Oncology 03/04/22 Grace Bess MD [address] [facility] [place] [address] Physician Hematology/Oncology 03/04/22 Greta Wetzel, PA-C [address] [facility] [place] [address] Physician Sports Editor Hematology/Oncology 03/04/22 Cabinet Maker Relationship Specialty Start Date End Date Giovanni Salinas II [address] [place] [address] [place] [address] PCP - General Internal Medicine 11/29/19 César Leiva MD [address] [place] [address] Endocrinology 05/08/20 Josephine Salomon RN [address] [facility] [place] [address] Special[address] Accountant Hematology/Oncology 03/04/22 Grace Bess MD [address] [facility] [place] [address] Physician Hematology/Oncology 03/04/22 Greta Wetzel PA-C [address] [facility] [place] [address] Physician Sports Editor Hematology/Oncology 03/04/22 Cabinet Maker Relationship Specialty Start Date End Date Giovanni Salinas II [address] [place] [address] [place] [address] PCP - General Internal Medicine 11/29/19 César Leiva MD [address] [place] [address] Endocrinology 05/08/20 Josephine Salomon RN [address] [facility] [place] [address] Special[address] Accountant Hematology/Oncology 03/04/22 Grace Bess MD [address] [facility] [place] [address] Physician Hematology/Oncology 03/04/22 Greta Wetzel PA-C [address] [facility] [place] [place] [address] Physician Sports Editor Hematology/Oncology 03/04/22 Cabinet Maker Relationship Specialty Start Date End Date Giovanni Salinas II [address] [facility] [address] [place] [address] PCP - General Internal Medicine 11/29/19 César Leiva MD [address] [place] [address] Endocrinology 05/08/20 Josephine Salomon RN [address] [facility] [address] [place], [place] [address] Specialty Railroad Accountant Hematology/Oncology 03/04/22 Grace Bess MD 417 [facility] [place] [address] Physician Hematology/Oncology 03/04/22 Greta Wetzel PA-C [address] [facility] [place] [place] [address] Physician Sports Editor Hematology/Oncology 03/04/22 Team Status: Active Member Role Status Dates Giovanni Salinas II MD Primary Care Provider Active Team Status: Inactive Member Role Status Dates Giovanni Salinas II MD Primary Care Provider Active Jemma Padilla APRN Emergency Provider Active Cabinet Maker Relationship Specialty Start Date End Date Giovanni Salinas II [address] [place] [address] [place] [address] PCP - General Internal Medicine 11/29/19 César Leiva MD [address] [place] [id number] Endocrinology 05/08/20 Josephine Salomon, RN [address] [facility] [place] [place] [address] Special[address] Accountant Hematology/Oncology 03/04/22 Grace Bess MD 417 [facility] [place] [address] Physician Hematology/Oncology 03/04/22 Greta Wetzel PA-C [address] [facility] [place] [place] [address] Physician Sports Editor Hematology/Oncology 03/04/22 Cabinet Maker Relationship Specialty Start Date End Date Giovanni Salinas II [address] [place] [address] [place] [address] PCP - General Internal Medicine 11/29/19 César Leiva MD [address] [place] [address] Endocrinology 05/08/20 Josephine Salomon, RN [address] [facility] [address] [place], [place] 3[address]370 Specialty Railroad Accountant Hematology/Oncology 03/04/22 Grace Bess MD [address] [place] [address] Physician Hematology/Oncology 03/04/22 Greta Wetzel PA-C [address] [facility] [place] [address] Physician Sports Editor Hematology/Oncology 03/04/22 Cabinet Maker Relationship Specialty Start Date End Date Giovanni Salinas II, MD [address] [facility] [address] [place] [address] PCP - General Internal Medicine 11/29/19 César Leiva MD [address] [place] [address] Endocrinology 05/08/20 Josephine Salomon RN [address] [facility] [place] [address] Specialty [address] Accountant Hematology/Oncology 03/04/22 Grace Bess MD [address] [facility] [place] [address] Physician Hematology/Oncology 03/04/22 Greta Wetzel PA-C [address] [facility] [place] [address] Physician Sports Editor Hematology/Oncology 03/04/22 Cabinet Maker Relationship Specialty Start Date End Date Giovanni Salinas II, MD [address] [place] [address] [place] [address] PCP - General Internal Medicine 11/29/19 César Leiva MD [address] [place] [address] Endocrinology 05/08/20 Josephine Salomon RN [address] [facility] [place] [address] Special[address] Accountant Hematology/Oncology 03/04/22 Grace Bess MD 417 [facility] [place] [address] Physician Hematology/Oncology 03/04/22 Greta Wetzel, LEONC [address] [facility] [place] [address] Physician Sports Editor Hematology/Oncology 03/04/22 Cabinet Maker Relationship Specialty Start Date End Date Giovanni Salinas II, MD [address] [facility] [address] [place] [address] PCP - General Internal Medicine 11/29/19 César Leiva MD [address] [place] [address] Endocrinology 05/08/20 Josephine Salomon RN [address] [facility] [place] [address] Specialty [address] Accountant Hematology/Oncology 03/04/22 Grace Bess MD 417 [facility] [place] [address] Physician Hematology/Oncology 03/04/22 Greta Wetzel PA-C [address] [place] [address] [place] [address] Physician Sports Editor Hematology/Oncology 03/04/22 Cabinet Maker Relationship Specialty Start Date End Date Giovanni Salinas II, MD [address] [place] [address] PCP - General Internal Medicine 11/29/19 César Leiva MD [address] [place] [address] Endocrinology 05/08/20 Josephine Salomon, RN [address] [facility] [place] [place] [address] Special[address] Accountant Hematology/Oncology 03/04/22 Grace Bess MD 417 [facility] [place] [address] Physician Hematology/Oncology 03/04/22 Greta Wetzel PA-C [address] [place] [address] [place] [address] Physician Sports Editor Hematology/Oncology 03/04/22 Cabinet Maker Relationship Specialty Start Date End Date Giovanni Salinas II, MD [address] [place] [place] [address] PCP - General Internal Medicine 11/29/19 César Leiva MD [address] [place] [address] Endocrinology 05/08/20 Josephine Salomon RN [address] [facility] [place] [address] Special[address] Accountant Hematology/Oncology 03/04/22 Grace Bess MD [address] [facility] [place] [address] Physician Hematology/Oncology 03/04/22 Greta Wetzel PA-C [address] [place] [address] [place] [address] Physician Sports Editor Hematology/Oncology 03/04/22 Cabinet Maker Relationship Specialty Start Date End Date Giovanni Salinas II, MD [facility] [address] PCP - General Internal Medicine 11/29/19 César Leiva MD [address] [place] [address] Endocrinology 05/08/20 Josephine Salomon RN [address] [facility] [place] [address] Specialty [employer] Accountant Hematology/Oncology 03/04/22 Grace Bess MD [address] [facility] [place] [address] Physician Hematology/Oncology 03/04/22 Greta Wetzel PA-C [address] [facility] [place] [address] Physician Sports Editor Hematology/Oncology 03/04/22 Cabinet Maker Relationship Specialty Start Date End Date Giovanni Salinas II, MD [address] [place] [address] [place] [address] PCP - General Internal Medicine 11/29/19 César Leiva MD [address] [place] [address] Endocrinology 05/08/20 Josephine Salomon, RN [address] [facility] [address] [place], [place] [address] Specialty Railroad Accountant Hematology/Oncology 03/04/22 Grace Bess MD [address] [facility] [place] [address] Physician Hematology/Oncology 03/04/22 Greta Wetzel PA-C [address] [facility] [place] [address] Physician Sports Editor Hematology/Oncology 03/04/22 Cabinet Maker Relationship Specialty Start Date End Date Giovanni Salinas II, MD [address] [facility] [address] [place] [address] PCP - General Internal Medicine 11/29/19 César Leiva MD [address] [place] [address] Endocrinology 05/08/20 Josephine Salomon, RN [address] [facility] [place] [address] Specialty [address] Accountant Hematology/Oncology 03/04/22 Grace Bess MD [address] [facility] [place] [address] Physician Hematology/Oncology 03/04/22 Greta Wetzel PA-C [address] [facility] [place] [address] Physician Sports Editor Hematology/Oncology 03/04/22 Cabinet Maker Relationship Specialty Start Date End Date Giovanni Salinas II, MD [address] [place] [place] [address] PCP - General Internal Medicine 11/29/19 César Leiva MD [address] [place] [address] Endocrinology 05/08/20 Josephine Salomon RN [address] [facility] [place] [address] Specialty Railroad Accountant Hematology/Oncology 03/04/22 Grace Bess MD [address] [place] [address] Physician Hematology/Oncology 03/04/22 Greta Wetzel PA-C [address] [facility] [place] [address] Physician Sports Editor Hematology/Oncology 03/04/22 Cabinet Maker Relationship Specialty Start Date End Date Giovanni Salinas II, MD [address] [place] [address] PCP - General Internal Medicine 11/29/19 César Leiva MD [address] [place] [address] Endocrinology 05/08/20 Josephine Salomon RN [address] [place] [address] Special[address] Accountant Hematology/Oncology 03/04/22 Grace Bess MD [address] [place] [address] Physician Hematology/Oncology 03/04/22 Greta Wetzel PA-C [address] [place] [address] [place] [address] Physician Sports Editor Hematology/Oncology 03/04/22 Cabinet Maker Relationship Specialty Start Date End Date Giovanni Salinas II, MD [address] [place] [address] PCP - General Internal Medicine 11/29/19 César Leiva MD [address] [place] [address] [address] [place] [address] Endocrinology 05/08/20 Josephine Salomon, RN [address] [place] [address] [place] [address] Specialty [employer] Accountant Hematology/Oncology 03/04/22 Grace Bess MD [address] [place] [address] Physician Hematology/Oncology 03/04/22 Greta Wetzel PA-C [address] [place] [address] [place] [address] Physician Sports Editor Hematology/Oncology 03/04/22 Cabinet Maker Relationship Specialty Start Date End Date Giovanni Salinas II, MD [address] [place] [place] [address] PCP - General Internal Medicine 11/29/19 César Leiva MD [address] [place] [address] Endocrinology 05/08/20 Josephine Salomon RN [address] [facility] [place] [address] Special[address] Accountant Hematology/Oncology 03/04/22 Grace Bess MD 417 [facility] [place] [address] Physician Hematology/Oncology 03/04/22 Greta Wetzel PA-C [address] [place] [address] [place] [address] Physician Sports Editor Hematology/Oncology 03/04/22 Cabinet Maker Relationship Specialty Start Date End Date Giovanni Salinas II, MD [address] [facility] [address] [place] [address] PCP - General Internal Medicine 11/29/19 César Leiva MD [address] [place] [address] Endocrinology 05/08/20 Josephine Salomon RN [address] [facility] [place] [address] Specialty [employer] Accountant Hematology/Oncology 03/04/22 Grace Bess MD 417 [facility] [place] [address] Physician Hematology/Oncology 03/04/22 Greta Wetzel PA-C [address] [place] [address] [place] [address] Physician Sports Editor Hematology/Oncology 03/04/22 Cabinet Maker Relationship Specialty Start Date End Date Giovanni Salinas II, MD [address] [facility] [address] [place] [address] PCP - General Internal Medicine 11/29/19 César Leiva MD [address] [place] [address] Endocrinology 05/08/20 Josephine Salomon, LUIS ANTONIO [address] [facility] [place] [address] [address] Accountant Hematology/Oncology 03/04/22 Grace Bess MD [address] [place] [address] Physician Hematology/Oncology 03/04/22 Greta Wetzel PA-C [address] [facility] [place] [address] Physician Sports Editor Hematology/Oncology 03/04/22 Cabinet Maker Relationship Specialty Start Date End Date Giovanni Salinas II, MD [address] [facility] [address] [place] [address] PCP - General Internal Medicine 11/29/19 César Leiva MD [address] [place] [address] Endocrinology 05/08/20 Josephine Salomon, RN [address] [facility] [place] [address] [address] Accountant Hematology/Oncology 03/04/22 Grace Bess MD [address] [facility] [place] [address] Physician Hematology/Oncology 03/04/22 Greta Wetzel PA-C [address] [place], [place] [address]RY [facility] [place] [address] Physician Sports Editor Hematology/Oncology 03/04/22 Cabinet Maker Relationship Specialty Start Date End Date Giovanni Salinas II, MD [address] [facility] [address] [place] [address] PCP - General Internal Medicine 11/29/19 César Leiva MD [address] [place] [address] Endocrinology 05/08/20 Josephine Salomon RN [address] [facility] [place] [address] Special[address] Accountant Hematology/Oncology 03/04/22 Grace Bess MD [address] [facility] [place] [address] Physician Hematology/Oncology 03/04/22 Greta Wetzel PA-C [address] [facility] [place] [address] Physician Sports Editor Hematology/Oncology 03/04/22 Cabinet Maker Relationship Specialty Start Date End Date Giovanni Salinas II, MD [address] [facility] [address] [place] [address] PCP - General Internal Medicine 11/29/19 César Leiva MD [address] [place] [address] Endocrinology 05/08/20 Josephine Salomon RN [address] [facility] [place] [address] Special[address] Accountant Hematology/Oncology 03/04/22 Grace Bess MD [address] [place] [address] Physician Hematology/Oncology 03/04/22 Greta Wetzel PA-C [address] [place] [address] [place] [address] Physician Sports Editor Hematology/Oncology 03/04/22 Cabinet Maker Relationship Specialty Start Date End Date Giovanni Salinas II, MD [address] [place] [address] PCP - General Internal Medicine 11/29/19 César Leiva MD [address] [place] [address] Endocrinology 05/08/20 Josephine Salomon RN [address] [facility] [place] [address] Special[address] [employer] Accountant Hematology/Oncology 03/04/22 Grace Bess MD [address] [place] [address] Physician Hematology/Oncology 03/04/22 Greta Wetzel PA-C [address] [place] [address] [place] [address] Physician Sports Editor Hematology/Oncology 03/04/22 Cabinet Maker Relationship Specialty Start Date End Date Giovanni Salinas II, MD [address] [place] [address] PCP - General Internal Medicine 11/29/19 César Leiva MD [address] [place] [address] Endocrinology 05/08/20 Josephine Salomon RN [address] [facility] [place] [address] Special[address] Accountant Hematology/Oncology 03/04/22 Grace Bess MD [address] [facility] [place] [address] Physician Hematology/Oncology 03/04/22 Greta Wetzel PA-C [address] [facility] [place] [address] Physician Sports Editor Hematology/Oncology 03/04/[address] [place] [address] [place] [address] Registered Dietitian Nutrition 06/07/23 Cabinet Maker Relationship Specialty Start Date End Date Giovanni Salinas II, MD [address] [place] [address] PCP - General Internal Medicine 11/29/19 César Leiva MD [address] [place] [address] Endocrinology 05/08/20 Josephine Salomon RN [address] [facility] [place] [address] Special[address] Accountant Hematology/Oncology 03/04/22 Grace Bess MD [address] [facility] [place], [place] [address] Physician Hematology/Oncology 03/04/22 Greta Wetzel PA-C [address] [place] [address] [place] [address] Physician Sports Editor Hematology/Oncology 03/04/[address] [facility] [place] [address] Registered Dietitian Nutrition 06/07/23 Cabinet Maker Relationship Specialty Start Date End Date Giovanni Salinas II, MD [address] [place] [address] PCP - General Internal Medicine 11/29/19 César Leiva MD [address] [facility] [address] [place], [place] [address] Endocrinology 05/08/20 Josephine Salomon, RN [address] [facility] [place] [address] [address] [employer] Accountant Hematology/Oncology 03/04/22 Grace Bess MD 417 [facility] [place] [address] Physician Hematology/Oncology 03/04/22 Greta Wetzel PA-C [address] [place] [address] [place] [address] Physician Sports Editor Hematology/Oncology 03/04/[address] [facility] [place] [address] Registered Dietitian Nutrition 06/07/23 Cabinet Maker Relationship Specialty Start Date End Date Giovanni Salinas II, MD [address] [place] [address] PCP - General Internal Medicine 11/29/19 César Leiva MD [address] [place] [address] Endocrinology 05/08/20 Josephine Salomon, RN [address] [facility] [place] [address] [employer] [employer] Accountant Hematology/Oncology 03/04/22 Grace Bess MD 417 [facility] [place] [address] Physician Hematology/Oncology 03/04/22 Greta Wetzel, LEONC [address] [place] [address] Physician Sports Editor Hematology/Oncology 03/04/[address] [place] [address] Registered Dietitian Nutrition 06/07/23 Cabinet Maker Relationship Specialty Start Date End Date Giovanni Salinas MD [address] [place] [address] PCP - ACO Reach 10/13/22 Giovanni Salinas MD [address] [place] [address] PCP - General Internal Medicine 10/20/22 Cabinet Maker Relationship Specialty Start Date End Date Giovanni Salinas II, MD Hang1 [address] [place] [address] PCP - General Internal Medicine 11/29/19 César Leiva MD [address] [place] [address] Endocrinology 05/08/20 Josephine Salomon, RN [address] [place] [address] Specialty Railroad Accountant Hematology/Oncology 03/04/22 Grace Bess MD [address] [place] [address] [place] [address] Physician Hematology/Oncology 03/04/22 Greta Wetzel PA-C [address] [place] [address] [place] [address] Physician Sports Editor Hematology/Oncology 03/04/[address] [place] [address] [place] [address] Registered Dietitian Nutrition 06/07/23 Cabinet Maker Relationship Specialty Start Date End Date Giovanni Salinas II, MD [address] [address] PCP - General Internal Medicine 11/29/19 César Leiva MD [address] [place] [address] Endocrinology 05/08/20 Josephine Salomon, RN [address] [place] [address] Specialty Railroad Accountant Hematology/Oncology 03/04/22 Grace Bess MD [address] [place] [address] [place] [address] Physician Hematology/Oncology 03/04/22 Greta Wetzel PA-C [address] [place] [address] Physician Sports Editor Hematology/Oncology 03/04/[address] [place] [address] [place] [address] Registered Dietitian Nutrition 06/07/23 Cabinet Maker Relationship Specialty Start Date End Date Giovanni Salinas II, MD [address] [facility] 110 [place] [address] PCP - General Internal Medicine 11/29/19 César Leiva MD [address] [place] [address] [address] [place] [address] Endocrinology 05/08/20 Josephine Salomon RN [address] [place] [address] Special[address] Accountant Hematology/Oncology 03/04/22 Grace Bess MD [address] [place] [address] [place] [address] Physician Hematology/Oncology 03/04/22 Greta Wetzel PA-C [address] [place] [address] [place] [address] Physician Sports Editor Hematology/Oncology 03/04/[address] [place] [address] Registered Dietitian Nutrition 06/07/23 Cabinet Maker Relationship Specialty Start Date End Date Giovanni Salinas II, MD [address] [facility] 110 [place] [address] PCP - General Internal Medicine 11/29/19 César Leiva MD [address] [place] [address] Endocrinology 05/08/20 Josephine Salomon, RN [address] [place] [address] Specialty Railroad Accountant Hematology/Oncology 03/04/22 Grace Bess MD [address] [place] [address] [place] [address] Physician Hematology/Oncology 03/04/22 Greta Wetzel PA-C [address] [place] [address] [place] [address] Physician Sports Editor Hematology/Oncology 03/04/[address] [place] [address] [place] [address] Registered Dietitian Nutrition 06/07/23 Cabinet Maker Relationship Specialty Start Date End Date Giovanni Salinas II, MD [address] [facility] [address] [place] [address] PCP - General Internal Medicine 11/29/19 César Leiva MD [address] [place] [address] Endocrinology 05/08/20 Josephine Salomon, RN [address] [place] [address] Specialty Railroad Accountant Hematology/Oncology 03/04/22 Grace Bess MD [address] [place] [address] [place] [address] Physician Hematology/Oncology 03/04/22 Greta Wetzel PA-C [address] [place] [address] Physician Sports Editor Hematology/Oncology 03/04/[address] [place] [address] Registered Dietitian Nutrition 06/07/23 Cabinet Maker Relationship Specialty Start Date End Date Giovanni Salinas II, MD [address] [place] [address] PCP - General Internal Medicine 11/29/19 César Leiva MD [address] [facility] [address] [place] [address] Endocrinology 05/08/20 Josephine Salomon, RN [address] [place] [address] Specialty Railroad Accountant Hematology/Oncology 03/04/22 Grace Bses MD [address] [facility] [place] [address] Physician Hematology/Oncology 03/04/22 Greta Wetzel PA-C [address] [place] [address] [place] [address] Physician Sports Editor Hematology/Oncology 03/04/[address] [place] [address] Registered Dietitian Nutrition 06/07/23 Cabinet Maker Relationship Specialty Start Date End Date Giovanni Salinas II, MD [address] [place] [address] PCP - General Internal Medicine 11/29/19 César Leiva MD [address] [place] [id number] Endocrinology 05/08/20 Josephine Salomon RN [address] [place] [place] [address] Specialty Railroad Accountant Hematology/Oncology 03/04/22 Grace Bess MD [address] [place] [address] [place] [address] Physician Hematology/Oncology 03/04/22 Greta Wetzel PA-C [address] [place] [address] [place] [address] Physician Sports Editor Hematology/Oncology 03/04/[address] [place] [address] [place] [address] Registered Dietitian Nutrition 06/07/23 Cabinet Maker Relationship Specialty Start Date End Date Giovanni Salinas II, MD [address] [facility] [address] [place] [address] PCP - General Internal Medicine 11/29/19 César Leiva MD [address] [place] [address] Endocrinology 05/08/20 Josephine Salomon, LUIS ANTONIO [address] [place] [address] Specialty Railroad Accountant Hematology/Oncology 03/04/22 Grace Bess MD [address] [place] [address] [place] [address] Physician Hematology/Oncology 03/04/22 Greta Wetzel PA-C [address] [facility] [place] [address] Physician Sports Editor Hematology/Oncology 03/04/[address] [facility] [place] [address] Registered Dietitian Nutrition 06/07/23 Cabinet Maker Relationship Specialty Start Date End Date Giovanni Salinas II, MD [address] [place] [address] PCP - General Internal Medicine 11/29/19 César Leiva MD [address] [facility] [address] [place] [address] Endocrinology 05/08/20 Josephine Salomon, RN [address] [facility] [place] [address] Specialty Railroad Accountant Hematology/Oncology 03/04/22 Grace Bess MD [address] [facility] [place] [address] Physician Hematology/Oncology 03/04/22 Greta Wetzel PA-C [address] [place] [address] Physician Sports Editor Hematology/Oncology 03/04/[address] [facility] [place] [address] Registered Dietitian Nutrition 06/07/23 Cabinet Maker Relationship Specialty Start Date End Date Giovanni Salinas II, MD [address] [place] [address] PCP - General Internal Medicine 11/29/19 César Leiva MD [address] [place] [address] Endocrinology 05/08/20 Josephine Salomon, RN [address] [facility] [place] [address] Specialty Railroad Accountant Hematology/Oncology 03/04/22 Grace Bess MD [address] [place], [place] [address]ry [facility] [place] [address] Physician Hematology/Oncology 03/04/22 Greta Wetzel PA-C [address] [place] [address] Physician Sports Editor Hematology/Oncology 03/04/[address] [place] [address] [place] [address] Registered Dietitian Nutrition 06/07/23 Cabinet Maker Relationship Specialty Start Date End Date Giovanni Salinas II, MD [address] [facility] 110 [place] [address] PCP - General Internal Medicine 11/29/19 César Leiva MD [address] [place] [address] Endocrinology 05/08/20 Josephine Salomon, LUIS ANTONIO [address] [facility] [place] [address] Specialty Railroad Accountant Hematology/Oncology 03/04/22 Grace Bess MD [address] [facility] [place] [address] Physician Hematology/Oncology 03/04/22 Greta Wetzel PA-C [address] [facility] [place] [address] Physician Sports Editor Hematology/Oncology 03/04/[address] [facility] [place] [address] Registered Dietitian Nutrition 06/07/23 Cabinet Maker Relationship Specialty Start Date End Date Giovanni Salinas II, MD [address] [place] [address] PCP - General Internal Medicine 11/29/19 César Leiva MD [address] [facility] [address] [place] [address] Endocrinology 05/08/20 Josephine Salomon, LUIS ANTONIO [address] [facility] [place] [address] Specialty Railroad Accountant Hematology/Oncology 03/04/22 Grace Bess MD [address] [facility] [place] [address] Physician Hematology/Oncology 03/04/22 Greta Wetzel PA-C [address] [facility] [place] [address] Physician Sports Editor Hematology/Oncology 03/04/[address] [facility] [place] [address] Registered Dietitian Nutrition 06/07/23 Cabinet Maker Relationship Specialty Start Date End Date Giovanni Salinas II, MD [address] [facility] [address] [place] [address] PCP - General Internal Medicine 11/29/19 César Leiva MD [address] [place] [address] Endocrinology 05/08/20 Josephine Salomon, LUIS ANTONIO [address] [facility] [place] [address] Specialty Railroad Accountant Hematology/Oncology 03/04/22 Grace Bess MD [address] [facility] [place] [address] Physician Hematology/Oncology 03/04/22 Greta Wetzel PA-C [address] [facility] [place] [address] Physician Sports Editor Hematology/Oncology 03/04/[address] [place] [address] Registered Dietitian Nutrition 06/07/23 Cabinet Maker Relationship Specialty Start Date End Date Giovanni Salinas II, MD [address] [place] [address] PCP - General Internal Medicine 11/29/19 César Leiva MD [address] [place] [address] Endocrinology 05/08/20 Josephine Salomon, LUIS ANTONIO [address] [facility] [place] [address] Specialty Railroad Accountant Hematology/Oncology 03/04/22 Grace Bess MD [address] [facility] [place] [address] Physician Hematology/Oncology 03/04/22 Greta Wetzel PA-C [address] [facility] [place] [address] Physician Sports Editor Hematology/Oncology 03/04/[address] [facility] [place] [address] Registered Dietitian Nutrition 06/07/23 Cabinet Maker Relationship Specialty Start Date End Date Giovanni Salinas II, MD [address] [place] [address] PCP - General Internal Medicine 11/29/19 César Leiva MD [address] [facility] [address] [place], [place] [address] Endocrinology 05/08/20 Josephine Salomon, RN [address] [facility] [place] [address] Specialty Railroad Accountant Hematology/Oncology 03/04/22 Grace Bess MD [address] [facility] [place] [address] Physician Hematology/Oncology 03/04/22 Greta Wetzel PA-C [address] [facility] [place] [address] Physician Sports Editor Hematology/Oncology 03/04/[address] [facility] [place] [address] Registered Dietitian Nutrition 06/07/23 Cabinet Maker Relationship Specialty Start Date End Date Giovanni Salinas II, MD [address] [place] [address] PCP - General Internal Medicine 11/29/19 César Leiva MD [address] [place] [address] Endocrinology 05/08/20 Josephine Salomon RN [address] [place] [address] Specialty Railroad Accountant Hematology/Oncology 03/04/22 Grace Bess MD [address] [place] [address] [place] [address] Physician Hematology/Oncology 03/04/22 Greta Wetzel PA-C [address] [place] [address] [place] [address] Physician Sports Editor Hematology/Oncology 03/04/[address] [place] [address] [place] [address] Registered Dietitian Nutrition 06/07/23 Cabinet Maker Relationship Specialty Start Date End Date Giovanni Salinas II, MD [address] [place] [address] PCP - General Internal Medicine 11/29/19 César Leiva MD [address] [place] [address] Endocrinology 05/08/20 Josephine Salomon RN [address] [facility] [address] [place] [address] Specialty Railroad Accountant Hematology/Oncology 03/04/22 Grace Bess MD [address] [place] [address] [place] [address] Physician Hematology/Oncology 03/04/22 Greta Wetzel PA-C [address] [place] [address] [place] [address] Physician Sports Editor Hematology/Oncology 03/04/[address] [place] [address] [place] [address] Registered Dietitian Nutrition 06/07/23 Cabinet Maker Relationship Specialty Start Date End Date Giovanni Salinas II, MD [address] [facility] [address] [place] [address] PCP - General Internal Medicine 11/29/19 César Leiva MD [address] [facility] [address] [place] [address] Endocrinology 05/08/20 Josephine Salomon, RN [address] [facility] [address] Specialty Railroad Accountant Hematology/Oncology 03/04/22 Grace Bess MD [address] [place] [address] [place] [address] Physician Hematology/Oncology 03/04/22 Greta Wetzel PA-C [address] [place] [address] [place] [address] Physician Sports Editor Hematology/Oncology 03/04/[address] [place] [address] [place] [address] Registered Dietitian Nutrition 06/07/23 Goals (unrecognized section and content) Goals may be documented in a n alternate section Inactive Administered Medications - up to 3 most recent administrations Administered Medications (un recognized section and content) Medication Order MAR Action Action Date Dose Rate Site dexAMETHasone 10 mg in NaCl 0.9% 50 mL (DECADRON) 10 mg, INTRAVENOUS, ONCE, 1 dose, On Mon07/05/23 at 1200, Refrigerate. New Bag/Syringe/Bottle 07/05/2023 11:55 AM EST 10 mg fluorouracil (ADRUCIL) 4,500 mg in NaCl 0.9% 102 mL in empty bag 4,500 mg (rounded from 4,536 mg = 2,400 mg/m2 1.89 m2 Treatment Plan BSA from Recorded weight), INTRAVENOUS, at 2.2 mL/hr, Administer over 46 Hours, ONCE, 1 dose, On Mon07/05/23 at 1200, EXP: 07/12/2023 0915 RT Hazardous Chemotherapy Drug: Use appropriate PPE. Protect from Light. Apheresis and/or Portable Pump 07/05/2023 2:42 PM EST 4,500 mg 2.2 mL/hr hyoscyamine sublingual 0.25 mg tab(s) (LEVSIN SL) 0.25 mg, SUBLINGUAL, ONCE, 1 dose, On Mon07/05/23 at 1200, Give 30 minutes prior to chemotherapy. Given 07/05/2023 11:51 AM EST 0.25 mg irinotecan liposomal (ONIVYDE) 129 mg in NaCl 0.9% 570 mL 129 mg (rounded from 132.3 mg = 70 mg/m2 1.89 m2 Treatment Plan BSA from Recorded weight), INTRAVENOUS, Administer over 90 Minutes, ONCE, 1 dose, On Mon07/05/23 at 1200, Approx Total Volume: mL EXP:07/05/2023 1600 RT Hazardous Chemotherapy Drug: Use appropriate PPE. Protect from Light. New Bag/Syringe/Bottle 07/05/2023 12:16 PM EST 129 mg leucovorin 756 mg in NaCl 0.9% 95.8 mL 756 mg (400 mg/m2 1.89 m2 Treatment Plan BSA from Recorded weight), INTRAVENOUS, Administer over 30 Minutes, ONCE, 1 dose, On Mon07/05/23 at 1200, APPROXIMATE TOTAL VOLUME ml - PROTECT FROM LIGHT EXP: 07/06/2023 1800 RT Run after completion of the liposomal irinotecan infusion. Do not run concurrently with liposomal irinotecan. REFRIGERATE New Bag/Syringe/Bottle 07/05/2023 1:48 PM EST 756 mg palonosetron 0.25 mg injection (ALOXI) 0.25 mg, INTRAVENOUS, ONCE, 1 dose, On Mon07/05/23 at 1200, Flush IV line with NS prior to and following administration. Given 07/05/2023 11:51 AM EST 0.25 mg Inactive Administered Medications - up to 3 most recent administrations Medication Order MAR Action Action Date Dose Rate Site dexAMETHasone 10 mg in NaCl 0.9% 50 mL (DECADRON) 10 mg, INTRAVENOUS, ONCE, 1 dose, On Mon07/19/23 at 1100, Refrigerate. New Bag/Syringe/Bottle 07/19/2023 11:14 AM EST 10 mg fluorouracil (ADRUCIL) 4,500 mg in NaCl 0.9% 102 mL in empty bag 4,500 mg (rounded from 4,536 mg = 2,400 mg/m2 1.89 m2 Treatment Plan BSA from Recorded weight), INTRAVENOUS, at 2.2 mL/hr, Administer over 46 Hours, ONCE, 1 dose, On Mon07/19/23 at 1100, EXP:07/26/2023 1000 RT Hazardous Chemotherapy Drug: Use appropriate PPE. Protect from Light. Apheresis and/or Portable Pump 07/19/2023 2:10 PM EST 4,500 mg 2.2 mL/hr hyoscyamine sublingual 0.25 mg tab(s) (LEVSIN SL) 0.25 mg, SUBLINGUAL, ONCE, 1 dose, On Mon07/19/23 at 1100, Give 30 minutes prior to chemotherapy. Given 07/19/2023 11:11 AM EST 0.25 mg irinotecan liposomal (ONIVYDE) 129 mg in NaCl 0.9% 570 mL 129 mg (rounded from 132.3 mg = 70 mg/m2 1.89 m2 Treatment Plan BSA from Recorded weight), INTRAVENOUS, Administer over 90 Minutes, ONCE, 1 dose, On Mon07/19/23 at 1100, Approx Total Volume: mL EXP:07/19/2023 1510 RT Hazardous Chemotherapy Drug: Use appropriate PPE. Protect from Light. New Bag/Syringe/Bottle 07/19/2023 11:54 AM EST 129 mg leucovorin 756 mg in NaCl 0.9% 95.8 mL 756 mg (400 mg/m2 1.89 m2 Treatment Plan BSA from Recorded weight), INTRAVENOUS, Administer over 30 Minutes, ONCE, 1 dose, On Mon07/19/23 at 1100, APPROXIMATE TOTAL VOLUME ml - PROTECT FROM LIGHT Run after completion of the liposomal irinotecan infusion. Do not run concurrently with liposomal irinotecan. EXP: 07/20/2023 1710 RT REFRIGERATE New Bag/Syringe/Bottle 07/19/2023 1:33 PM EST 756 mg palonosetron 0.25 mg injection (ALOXI) 0.25 mg, INTRAVENOUS, ONCE, 1 dose, On Mon07/19/23 at 1100, Flush IV line with NS prior to and following administration. Given 07/19/2023 11:11 AM EST 0.25 mg Inactive Administered Medications - up to 3 most recent administrations Medication Order MAR Action Action Date Dose Rate Site dexAMETHasone 10 mg in NaCl 0.9% 50 mL (DECADRON) 10 mg, INTRAVENOUS, ONCE, 1 dose, On Mon08/02/23 at 1200, Refrigerate. New Bag/Syringe/Bottle 08/02/2023 11:50 AM EDT 10 mg fluorouracil (ADRUCIL) 4,500 mg in NaCl 0.9% 102 mL in empty bag 4,500 mg (rounded from 4,536 mg = 2,400 mg/m2 1.89 m2 Treatment Plan BSA from Recorded weight), INTRAVENOUS, at 2.2 mL/hr, Administer over 46 Hours, ONCE, 1 dose, On Mon08/02/23 at 1200, EXP: 1200 08/09/23 Hazardous Chemotherapy Drug: Use appropriate PPE. Protect from Light. Apheresis and/or Portable Pump 08/02/2023 2:23 PM EDT 4,500 mg 2.2 mL/hr hyoscyamine sublingual 0.25 mg tab(s) (LEVSIN SL) 0.25 mg, SUBLINGUAL, ONCE, 1 dose, On Mon08/02/23 at 1200, Give 30 minutes prior to chemotherapy. Given 08/02/2023 11:46 AM EDT 0.25 mg irinotecan liposomal (ONIVYDE) 129 mg in NaCl 0.9% 570 mL 129 mg (rounded from 132.3 mg = 70 mg/m2 1.89 m2 Treatment Plan BSA from Recorded weight), INTRAVENOUS, Administer over 90 Minutes, ONCE, 1 dose, On Mon08/02/23 at 1200, EXP: 199908/02/23 Hazardous Chemotherapy Drug: Use appropriate PPE. Protect from Light. New Bag/Syringe/Bottle 08/02/2023 12:07 PM EDT 129 mg leucovorin 756 mg in NaCl 0.9% 95.8 mL 756 mg (400 mg/m2 1.89 m2 Treatment Plan BSA from Recorded weight), INTRAVENOUS, Administer over 30 Minutes, ONCE, 1 dose, On Mon08/02/23 at 1200, APPROXIMATE TOTAL VOLUME ml - PROTECT FROM LIGHT Run after completion of the liposomal irinotecan infusion. Do not run concurrently with liposomal irinotecan. EXP 39908/04/23 REFRIGERATE New Bag/Syringe/Bottle 08/02/2023 1:42 PM EDT 756 mg palonosetron 0.25 mg injection (ALOXI) 0.25 mg, INTRAVENOUS, ONCE, 1 dose, On Mon08/02/23 at 1200, Flush IV line with NS prior to and following administration. Given 08/02/2023 11:47 AM EDT 0.25 mg Inactive Administered Medications - up to 3 most recent administrations Medication Order MAR Action Action Date Dose Rate Site dexAMETHasone 10 mg in NaCl 0.9% 50 mL (DECADRON) 10 mg, INTRAVENOUS, ONCE, 1 dose, On Mon08/23/23 at 1200, Refrigerate. New Bag/Syringe/Bottle 08/23/2023 12:03 PM EDT 10 mg fluorouracil (ADRUCIL) 4,500 mg in NaCl 0.9% 102 mL in empty bag 4,500 mg (rounded from 4,536 mg = 2,400 mg/m2 1.89 m2 Treatment Plan BSA from Recorded weight), INTRAVENOUS, at 2.2 mL/hr, Administer over 46 Hours, ONCE, 1 dose, On Mon08/23/23 at 1200, EXP:08/30/2023 1200 RT Hazardous Chemotherapy Drug: Use appropriate PPE. Protect from Light. Apheresis and/or Portable Pump 08/23/2023 2:48 PM EDT 4,500 mg 2.2 mL/hr hyoscyamine sublingual 0.25 mg tab(s) (LEVSIN SL) 0.25 mg, SUBLINGUAL, ONCE, 1 dose, On Mon08/23/23 at 1200, Give 30 minutes prior to chemotherapy. Given 08/23/2023 12:01 PM EDT 0.25 mg irinotecan liposomal (ONIVYDE) 129 mg in NaCl 0.9% 570 mL 129 mg (rounded from 132.3 mg = 70 mg/m2 1.89 m2 Treatment Plan BSA from Recorded weight), INTRAVENOUS, Administer over 90 Minutes, ONCE, 1 dose, On Mon08/23/23 at 1200, Approx Total Volume: mL EXP: 08/23/2023 1550 RT Hazardous Chemotherapy Drug: Use appropriate PPE. Protect from Light. New Bag/Syringe/Bottle 08/23/2023 12:24 PM EDT 129 mg leucovorin 756 mg in NaCl 0.9% 95.8 mL 756 mg (400 mg/m2 1.89 m2 Treatment Plan BSA from Recorded weight), INTRAVENOUS, Administer over 30 Minutes, ONCE, 1 dose, On Mon08/23/23 at 1200, APPROXIMATE TOTAL VOLUME ml - PROTECT FROM LIGHT EXP: 08/24/2023 1750 RT Run after completion of the liposomal irinotecan infusion. Do not run concurrently with liposomal irinotecan. REFRIGERATE New Bag/Syringe/Bottle 08/23/2023 2:09 PM EDT 756 mg palonosetron 0.25 mg injection (ALOXI) 0.25 mg, INTRAVENOUS, ONCE, 1 dose, On Mon08/23/23 at 1200, Flush IV line with NS prior to and following administration. Given 08/23/2023 12:01 PM EDT 0.25 mg FOR RECORDS PERTAINING TO PATIENTS WHO ARE OR HAVE BEEN ENROLLED IN A CHEMICAL DEPENDENCY/SUBSTANCEABUSE PROGRAM, SOME INFORMATION MAY BE OMITTED. This clinical summary was aggregated from multiple sources. Caution should be exercised in using it in the provision of clinical care. This summary normalizes information from multiple sources, and as a consequence, information in this document may materially change the coding, format and clinical context of patient data. In addition, data may be omitted in some cases. CLINICAL DECISIONS SHOULD BE BASED ON THE PRIMARY CLINICAL RECORDS. [employer] provides no warranty or guarantee of the accuracy or completeness of information in this document.
[2023-10-16 20:39] LABS: Glucometer 153 mg/dL (74-106)
--- NOTE | 2023-10-16 20:48 | ED_ITS ---
HPI HPI - General Adult General Chief complaint: Weakness Stated complaint: Altered Mental Status Time Seen by Provider: 10/16/23 20:28 Source: patient and family Mode of arrival: ambulance History of Present Illness HPI narrative: This 73-year-old male with a history of pancreatic cancer since 2019 who has had a Whipple procedure and is currently receiving chemotherapy is brought to the emergency department by EMS accompanied by family. The patient's states that earlier tonight she could not get him to respond to her. She checked his sugar and it was around 60. She then gave him a banana and it brought his sugar up and he had some [place] food for dinner. She called EMS because he could not get warm and was having episodes of altered mental status where she states she could not wake him up. He last received chemotherapy on to Monday. At that time there was concern that he may have a urinary tract infection. The patient's states that she was waiting to hear the results of urine has not heard back from the [facility]. The patient's appetite has been at his baseline. He denies any chest pain or shortness of breath. He is tachypneic upon arrival. He denies any abdominal pain. According to the patient's he has been constipated for the past several days. He has not had a fever but has had generalized weakness and states he cannot get warm. He denies any headache, nasal congestion or sore throat. He is awake alert and oriented and a reasonable historian upon arrival. He is currently on Cipro according to the pharmacy records. The states she does not think that she picked this up. He is also recently had a cough and a moderate amount of phlegm. He does have a history of tobacco use in the past but is not a current smoker. He states he quit smoking prior to getting diagnosed with pancreatic cancer in 2019. Related Data Home Medications ?Medication ?Instructions ?Recorded ?Confirmed ciprofloxacin HCl 500 mg tablet 500 mg PO BID 10/16/23 10/16/23 finasteride 5 mg tablet 5 mg PO QAM 10/16/23 10/16/23 pantoprazole 20 mg tablet,delayed 20 mg PO DAILY 10/16/23 10/16/23 release sertraline 25 mg tablet 25 mg PO DAILY 10/16/23 10/16/23 tamsulosin 0.4 mg capsule 0.4 mg PO DAILY 10/16/23 10/16/23 Allergies Allergy/AdvReac Type Severity Reaction Status Date / Time No Known Drug Allergies Allergy Verified 10/16/23 20:34 Opioid HPI Opioid Management Most Recent Opioid Data: Last ORT Total Score 0 10/17/23 00:54 Last ORT Risk Category Low Risk 10/17/23 00:54 Review of Systems ROS Status of ROS 10 or more systems reviewed and unremark able except as noted in history and below PFS PFS Medical History (Updated 10/17/23 @ 02:01 by Mayelin Restrepo MD) Pancreatic cancer ?C25.9 - Malignant neoplasm of pancreas, unspecified (ICD-10) Diabetes ?E11.9 - Type 2 diabetes mellitus without complications (ICD-10) Surgical History (Updated 10/17/23 @ 00:46 by Kirsty Murray) History of Whipple procedure ?Z90.410 - Acquired total absence of pancreas (ICD-10) ?Z90.49 - Acquired absence of other specified parts of digestive tract (ICD- 10) Social History Highest level of school completed/degree received: high school graduate Exam Narrative Exam Narrative: Vital signs and Nursing Notes reviewed: Oral temperature is normal at 98, blood pressure is normal at 126/73, he has a normal pulse, he is tachypneic with respiratory of 26 but he is not hypoxic with pulse ox of 100% on room air General: Alert, nontoxic adult male, he has episodes where he rolls his eyes back in his head and briefly does not speak and then returns to normal level of consciousness, GCS 15 HEENT: Normocephalic atraumatic, mucous membranes are moist and pink, eyes are clear, normal conjunctiva, vision is grossly intact, posterior pharynx is normal in appearance. No oral thrush. Neck: Supple, no meningeal signs, no anterior or posterior cervical lymphadenopathy Chest: Lungs are clear to auscultation with good air entry, there is no wheezing rhonchi or rales appreciated no accessory muscle use, patient is speaking in complete sentences-no chest wall tenderness to palpation. There is a port in the right upper chest wall CVS: Regular rate and rhythm S1-S2, no murmurs rubs or gallops, pulses are brisk and equal bilaterally ABD: Soft, nondistended, nontender, no rebound guarding or rigidity, bowel sounds are normal, no pulsatile masses appreciated, large healed midline abdominal incision status post Whipple procedure Extremities: Moving all extremities, trace pedal edema, negative Homans' sign, pulses are brisk and equal bilaterally, no sign of diabetic foot ulcers or infection of the lower extremities Skin: Normal in appearance without rash,pallor, petechiae or purpura Neuro: No focal deficits, speech is clear, 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 He does have episodes where he rolls his eyes back in his head and does not speak briefly as if he is falling asleep. Constitutional Vital Signs, click to edit/add: Last Vital Signs Temp 98.5 F 10/17/23 00:47 Pulse 62 10/17/23 00:55 Resp 34 H 10/17/23 00:55 BP 107/61 10/17/23 00:47 Pulse Ox 98 10/17/23 00:55 O2 Del Method Room Air 10/17/23 00:55 Course Vital Signs Vital signs: Vital Signs Temperature 98.0 F 10/16/23 20:30 Pulse Rate 66 10/16/23 20:30 Respiratory Rate 26 H 10/16/23 20:30 Blood Pressure 126/73 10/16/23 20:30 Pulse Oximetry 100 10/16/23 20:30 Oxygen Delivery Method Room Air 10/16/23 20:30 Temperature 98.5 F 10/17/23 00:47 Pulse Rate 62 10/17/23 00:55 Respiratory Rate 34 H 10/17/23 00:55 Blood Pressure 107/61 10/17/23 00:47 Pulse Oximetry 98 10/17/23 00:55 Oxygen Delivery Method Room Air 10/17/23 00:55 Medical Decision Making MDM Narrative Medical decision making narrative: This 73-year-old male with a history of diabetes and pancreatic cancer who is currently receiving chemotherapy is brought to the emergency department by EMS from home. The patient's called EMS because she stated that the patient was poorly responsive and she could not wake him up. Earlier in the day he had a blood sugar of 60 and had a banana. He then had [place] food. She states that after that he was becoming lethargic and she could not wake him up. He was noted to be mildly tachypneic by EMS. Upon arrival he was awake alert oriented. He was a good historian about recent events. He had no focal neurologic symptoms. He denied any shortness of breath or chest pain. He had no abdominal pain. He has been constipated recently. The patient's stated that she had wanted his urine to be checked at the infusion center recently because she was concerned that he may be developing a UTI. He denies any urinary symptoms or flank pain. He has had a Whipple procedure and is currently undergoing chemotherapy at [facility]. He did complain of being chilled all day and could not get warm. A rectal temperature revealed a minimal fever at 99. EKG done upon arrival is a sinus rhythm at 63 bpm with no acute findings. An IV had been placed by EMS and routine labs were ordered. He was given 500 cc IV bolus and maintenance normal saline. He was medicated with Tylenol for his chills. Routine labs were ordered. His white count is minimally elevated at 12.4 with a hemoglobin of 12.3 and normal platelet count. Electrolytes are normal with the exception of a mildly low sodium at 128 and glucose of 154. BUN and creatinine are normal. Respiratory panel was negative. Troponin is normal. Lactic acid was elevated at 3.8. Urine was negative for infection. CT scan of the brain showed no acute findings and chest x-ray was also read by radiology as normal. The results of all of these findings were discussed with the patient and his family. He did recently have some lower extremity swelling and had ultrasounds done of his legs that were negative. I explained to the patient and family that the only study I have not performed is a CT scan of the chest abdomen pelvis. They do not feel this is indicated at this time. The patient has remained awake and alert. At 1 point upon me going back into the room I asked him if he wanted something to eat and he was agreeable to having to cookies. He ate these cookies without difficulty and then asked for a peanut butter sandwich. The patient did indicate that he did not feel strong enough to go home and the family requested that he be admitted for observation and IV fluids. He was given an additional 500 cc of normal saline prior to being transferred to the floor. The case was discussed with the hospitalist and the patient was accepted for admission. Blood cultures are pending at this time. No antibiotics were instituted in the emergency department as I did not find a source of infection, the patient does not appear to be toxic septic or otherwise in need of antibiotics. Medical Records Medical records narrative: The [address] [address] [address] Scan Report Signed Patient: TRINITY PERRY MR#: [id number] : 1950 Acct:[id number] Age/Sex: 73 / M ADM Date: 10/16/23 Loc: ER Attending Dr: Ordering Physician: Mayelin Restrepo Date of Service: 10/16/23 Procedure(s): CT head/brain wo con Accession Number(s): [id number] cc: CRUZITO SPRINGER ~ The [address] [address] Patient Name: TRINITY PERRY MRN: [facility]:[id number] date: 1950 Sex: M Assigned Patient Location: ER Current Patient Location: ER Accession/Order Number: [id number] Exam Date: 10/16/2023 21:15 Report Date: 10/16/2023 21:58 At the request of: MAYELIN RESTREPO Procedure: CT head/brain wo con EXAM: CT head/brain wo con HISTORY: AMS COMPARISON: None. TECHNIQUE: Axial CT scans through the head were obtained without IV contrast administration. Dose reduction techniques were achieved by using: automated exposure control and/or adjustment of mA and /or kV according to patient size and/or use of iterative reconstruction technique. FINDINGS: There is no evidence of acute intracranial hemorrhage or abnormal extra-axial fluid collection. No mass effect or midline shift is seen. There is no evidence of large acute territorial infarction. There is no hydrocephalus. Mild enlarged ventricles and sulci, consistent with age appropriate cerebral atrophy. Mild decreased attenuation of the supratentorial white matter, likely represents chronic microvascular ischemia. To the limit of CT, the posterior fossa appears unremarkable. No definite acute fracture is identified. Soft tissues are unremarkable. The visualized orbits show no abnormality. The visualized paranasal sinuses show no air-fluid level. Mastoid air cells are clear. CT/CT head/brain wo con IMPRESSION: No CT evidence of acute intracranial abnormality. If there is sufficient clinical concern for acute brain parenchymal pathology, consider MRI for further evaluation. Mild chronic microvascular ischemia and involutional changes. Electronically authenticated by: [facility] Date: 10/16/2023 21:[address] [address] XRay Report Signed Patient: TRINITY PERRY MR#: [id number] : 1950 Acct:[id number] Age/Sex: 73 / M ADM Date: 10/16/23 Loc: ER Attending Dr: Ordering Physician: Mayelin Restrepo Date of Service: 10/16/23 Procedure(s): XR chest 1V Accession Number(s): [id number] cc: CRUZITO SPRINGER ; Mayelin Marker~ The [address] [address] Patient Name: TRINITY PERRY MRN: [id number] date: 1950 Sex: M Assigned Patient Location: ER Current Patient Location: ER Accession/Order Number: [id number] Exam Date: 10/16/2023 21:15 Report Date: 10/16/2023 21:37 At the request of: MAYELIN RESTREPO Procedure: XR chest 1V ONE-VIEW CHEST RADIOGRAPH, 10/16/2023 9:15 PM EDT COMPARISON: None. CLINICAL HISTORY: AMS/confusion and weakness. Patient from home with blood sugar reported low then high by squad. History of pancreatic CA. FINDINGS: Right internal jugular portacatheter in place with tip in superior vena cava. No acute cardiopulmonary disease. No pulmonary edema, pneumothorax, or pleural effusion. Normal heart size. No acute osseous abnormality. XR/XR chest 1V IMPRESSION: No acute abnormality identified. Lab Data Labs: Lab Results 10/16/23 10/16/23 10/16/23 Range/Units 20:37 20:52 21:01 WBC 12.4 H (4.0-11.0) 10^3/uL RBC 3.39 L (4.70-6.10) 10^6/uL Hgb 10.3 L (14.0-18.0) g/dL Hct 31.9 L (42.0-54.0) % MCV 94.1 H (80.0-94.0) fL MCH 30.4 (25.9-34.0) pg MCHC 32.3 (29.9-35.2) g/dL RDW 14.9 (11.0-15.0) % Plt Count 436 (150-450) 10^3/uL MPV 9.0 L (9.5-13.5) fL Neut % (Auto) 82.2 H (43.0-75.0) % Lymph % (Auto) 15.4 L (20.5-60.0) % [place] % (Auto) 1.1 L (1.7-12.0) % Eos % (Auto) 0.1 L (0.9-7.0) % Baso % (Auto) 0.4 (0.2-2.0) % Neut # (Auto) 10.2 H (1.4-6.5) 10^3/uL Lymph # (Auto) 1.9 (1.2-3.8) 10^3/uL [place] # (Auto) 0.1 L (0.3-0.8) 10^3/uL Eos # (Auto) 0.0 (0.0-0.7) 10^3/uL Baso # (Auto) 0.1 (0.0-0.1) 10^3/uL Abs Immat Gran (auto) 0.10 H (0.00-0.03) 10^3/uL Imm/Tot Granulo (auto) 0.8 H (0.0-0.5) % Sodium 128 L (136-145) mmol/L Potassium 3.9 (3.5-5.1) mmol/L Chloride 93 L (98-107) mmol/L Carbon Dioxide 23.4 (21.0-32.0) mmol/L Anion Gap 15.5 BUN 20.0 H (7.0-18.0) mg/dL Creatinine 1.10 (0.70-1.30) mg/dL Est GFR ( Amer) >60 (>=60) Est GFR (Non-Af Amer) >60 (>=60) BUN/Creatinine Ratio 18.2 Glucose 154 H (74-106) mg/dL Lactate 3.8 H* (0.4-2.0) mmol/L Calcium 9.6 (8.5-10.1) mg/dL Total Bilirubin 1.0 (0.2-1.0) mg/dL AST 18 (15-37) U/L ALT 28 (16-63) U/L Alkaline Phosphatase 138 H (46-116) U/L Ammonia 14 (11-32) umol/L Troponin I High Sens <4.0 L (4.0-76.1) pg/mL Total Protein 8.0 (6.4-8.2) g/dL Albumin 2.8 L (3.4-5.0) g/dL Globulin 5.2 g/dL Albumin/Globulin Ratio 0.5 Lipase 39.0 (16.0-77.0) U/L Urine Color (YELLOW) Urine Clarity (CLEAR) Urine pH (5.0-9.0) Ur Specific [place] (1.005-1.025) Urine Protein (NEG/TRACE) mg/dL Urine Glucose (UA) (NEGATIVE) mg/dL Urine Ketones (NEGATIVE) mg/dL Urine Occult Blood (NEGATIVE) Urine Nitrite (NEGATIVE) Urine Bilirubin (NEGATIVE) Urine Urobilinogen (0.2-1.0) EU/dL Ur Leukocyte Esterase (NEGATIVE) Urine RBC (0-2) #/HPF Urine WBC (NONE SEEN) #/HPF Ur Squamous Epith Cells (NONE/RARE) #/LPF Urine Crystals (None Seen) #/HPF Urine Bacteria (NONE SEEN) #/HPF Urine Casts (NONE SEEN) #/LPF Urine Mucus (NONE SEEN) Adenovirus (PCR) (NOT DETECTE) B. pertussis DNA (PCR) (NOT DETECTE) B.parapertussis DNA PCR (NOT DETECTE) C. pneumoniae DNA (PCR) (NOT DETECTE) Coronavirus Type OC43 (NOT DETECTE) Coronavirus Type HKU1 (NOT DETECTE) Coronavirus Type 229E (NOT DETECTE) Coronavirus Type NL63 (NOT DETECTE) Human Metapneumovir PCR (NOT DETECTE) Influenza Type A (PCR) (NOT DETECTE) Influenza Type B (PCR) (NOT DETECTE) M. pneumoniae (PCR) (NOT DETECTE) Parainfluenza PCR (NOT DETECTE) Parainfluenza 2 (PCR) (NOT DETECTE) Parainfluenza 3 (PCR) (NOT DETECTE) Parainfluenza 4 (PCR) (NOT DETECTE) RSV (RT-PCR) (NOT DETECTE) Entero/Rhino (PCR) (NOT DETECTE) SARS-CoV-2 (PCR) (NOT DETECTE) POC Glucose 153 H (74-106) mg/dL 10/16/23 10/16/23 Range/Units 21:40 22:40 WBC (4.0-11.0) 10^3/uL RBC (4.70-6.10) 10^6/uL Hgb (14.0-18.0) g/dL Hct (42.0-54.0) % MCV (80.0-94.0) fL MCH (25.9-34.0) pg MCHC (29.9-35.2) g/dL RDW (11.0-15.0) % Plt Count (150-450) 10^3/uL MPV (9.5-13.5) fL Neut % (Auto) (43.0-75.0) % Lymph % (Auto) (20.5-60.0) % [place] % (Auto) (1.7-12.0) % Eos % (Auto) (0.9-7.0) % Baso % (Auto) (0.2-2.0) % Neut # (Auto) (1.4-6.5) 10^3/uL Lymph # (Auto) (1.2-3.8) 10^3/uL [place] # (Auto) (0.3-0.8) 10^3/uL Eos # (Auto) (0.0-0.7) 10^3/uL Baso # (Auto) (0.0-0.1) 10^3/uL Abs Immat Gran (auto) (0.00-0.03) 10^3/uL Imm/Tot Granulo (auto) (0.0-0.5) % Sodium (136-145) mmol/L Potassium (3.5-5.1) mmol/L Chloride (98-107) mmol/L Carbon Dioxide (21.0-32.0) mmol/L Anion Gap BUN (7.0-18.0) mg/dL Creatinine (0.70-1.30) mg/dL Est GFR ( Amer) (>=60) Est GFR (Non-Af Amer) (>=60) BUN/Creatinine Ratio Glucose (74-106) mg/dL Lactate (0.4-2.0) mmol/L Calcium (8.5-10.1) mg/dL Total Bilirubin (0.2-1.0) mg/dL AST (15-37) U/L ALT (16-63) U/L Alkaline Phosphatase (46-116) U/L Ammonia (11-32) umol/L Troponin I High Sens (4.0-76.1) pg/mL Total Protein (6.4-8.2) g/dL Albumin (3.4-5.0) g/dL Globulin g/dL Albumin/Globulin Ratio Lipase (16.0-77.0) U/L Urine Color Brown A (YELLOW) Urine Clarity Clear (CLEAR) Urine pH 8.5 (5.0-9.0) Ur Specific [place] 1.010 (1.005-1.025) Urine Protein Negative (NEG/TRACE) mg/dL Urine Glucose (UA) Negative (NEGATIVE) mg/dL Urine Ketones Negative (NEGATIVE) mg/dL Urine Occult Blood Negative (NEGATIVE) Urine Nitrite Negative (NEGATIVE) Urine Bilirubin Negative (NEGATIVE) Urine Urobilinogen 4.0 A (0.2-1.0) EU/dL Ur Leukocyte Esterase Negative (NEGATIVE) Urine RBC None seen (0-2) #/HPF Urine WBC None seen (NONE SEEN) #/HPF Ur Squamous Epith Cells Rare (NONE/RARE) #/LPF Urine Crystals None seen (None Seen) #/HPF Urine Bacteria None seen (NONE SEEN) #/HPF Urine Casts None seen (NONE SEEN) #/LPF Urine Mucus None seen (NONE SEEN) Adenovirus (PCR) Not detected (NOT DETECTE) B. pertussis DNA (PCR) Not detected (NOT DETECTE) B.parapertussis DNA PCR Not detected (NOT DETECTE) C. pneumoniae DNA (PCR) Not detected (NOT DETECTE) Coronavirus Type OC43 Not detected (NOT DETECTE) Coronavirus Type HKU1 Not detected (NOT DETECTE) Coronavirus Type 229E Not detected (NOT DETECTE) Coronavirus Type NL63 Not detected (NOT DETECTE) Human Metapneumovir PCR Not detected (NOT DETECTE) Influenza Type A (PCR) Not detected (NOT DETECTE) Influenza Type B (PCR) Not detected (NOT DETECTE) M. pneumoniae (PCR) Not detected (NOT DETECTE) Parainfluenza PCR Not detected (NOT DETECTE) Parainfluenza 2 (PCR) Not detected (NOT DETECTE) Parainfluenza 3 (PCR) Not detected (NOT DETECTE) Parainfluenza 4 (PCR) Not detected (NOT DETECTE) RSV (RT-PCR) Not detected (NOT DETECTE) Entero/Rhino (PCR) Not detected (NOT DETECTE) SARS-CoV-2 (PCR) Not detected (NOT DETECTE) POC Glucose (74-106) mg/dL ECG Data Attestation: I personally reviewed and interpreted this ECG as follows: (Normal sinus rhythm at 63 bpm, low voltage, normal axis, no acute ST segment elevation or T wave inversion) Discharge Plan Discharge Chief Complaint: Weakness Clinical Impression: Primary pancreatic cancer , Hyponatremia, Weakness, Mental status change resolved, Acidosis, lactic Patient Disposition: Admitted as Observation Condition: Good Discharge Date/Time: 10/17/23 00:30
--- NOTE | 2023-10-16 21:10 | PC.NURSE ---
Patient to ED by EMS with weakness, c/o being cold. called EMS when blood sugar was low, and patient was less responsive at home, states patient was not able to urinate and was speaking incoherently. Blood sugar at time of arrival in ED was 150s by fingerstick. Patient is denying complaints other than being cold. He is denying pain, denying SOB, he is A/Ox4. He states he was dx with pancreatic cancer in 2019 and had whipple procedure at that time. Has chemo every 3 weeks, last tx was Monday. His confirms these details. Patient has implanted port to right upper chest this is not accessed at this time due to EMS starting a large bore peripheral IV in left AC. Labs drawn off of this IV.
[2023-10-16 21:11] LABS: Basophils Absolute Auto 0.1 10^3/uL (0.0-0.1); Basophils Percent Auto 0.4 % (0.2-2.0); Eosinophils Percent Auto 0.1 % (0.9-7.0); Hematocrit 31.9 % (42.0-54.0); Hemoglobin 10.3 g/dL (14.0-18.0); Immature Granulocytes Pct Auto 0.8 % (0.0-0.5); Lymphocytes Absolute Auto 1.9 10^3/uL (1.2-3.8); Lymphocytes Percent Auto 15.4 % (20.5-60.0); Mean Corpuscular HGB Conc 32.3 g/dL (29.9-35.2); Mean Corpuscular Hemoglobin 30.4 pg (25.9-34.0); Mean Corpuscular Volume 94.1 fL (80.0-94.0); Monocytes Absolute Auto 0.1 10^3/uL (0.3-0.8); Monocytes Percent Auto 1.1 % (1.7-12.0); Neutrophils Absolute Auto 10.2 10^3/uL (1.4-6.5); Neutrophils Percent Auto 82.2 % (43.0-75.0); Platelet Count 436 10^3/uL (150-450); Red Blood Count 3.39 10^6/uL (4.70-6.10); Red Cell Distribution Width 14.9 % (11.0-15.0); White Blood Count 12.4 10^3/uL (4.0-11.0)
[2023-10-16 21:18] LABS: Ammonia 14 umol/L (11-32)
[2023-10-16] MEDS: ACETAMINOPHEN 325 MG TABLET 650 MG PO (21:25)
[2023-10-16] MEDS: 0.9 % SODIUM CHLORIDE 500 ML IV ×2 (21:25→23:48)
[2023-10-16 21:34] LABS: Alanine Aminotransferase 28 U/L (16-63); Albumin Globulin Ratio 0.5; Albumin Level 2.8 g/dL (3.4-5.0); Alkaline Phosphatase 138 U/L (46-116); Anion Gap 15.5; Aspartate Amino Transferase 18 U/L (15-37); BUN Creatinine Ratio 18.2; Calcium 9.6 mg/dL (8.5-10.1); Carbon Dioxide 23.4 mmol/L (21.0-32.0); Chloride 93 mmol/L (98-107); Estimated GFR (African America >60 (>=60); Estimated GFR (Non-African Ame >60 (>=60); Globulin 5.2 g/dL; Glucose 154 mg/dL (74-106); Potassium 3.9 mmol/L (3.5-5.1); Sodium 128 mmol/L (136-145); Troponin I High Sensitivity <4.0 pg/mL (4.0-76.1)
[2023-10-16 21:36] LABS: Lactate/Lactic Acid 3.8 mmol/L (0.4-2.0)
[2023-10-16 21:44] LABS: Adenovirus NOT DETECTED (NOT DETECTE); Bordetella parapertussis NOT DETECTED (NOT DETECTE); Coronavirus 229E NOT DETECTED (NOT DETECTE); Coronavirus HKU1 NOT DETECTED (NOT DETECTE); Coronavirus NL63 NOT DETECTED (NOT DETECTE); Coronavirus OC43 NOT DETECTED (NOT DETECTE); Human Metapneumovirus NOT DETECTED (NOT DETECTE); Human Rhinovirus/Enterovirus NOT DETECTED (NOT DETECTE); Influenza A NOT DETECTED (NOT DETECTE); Influenza B NOT DETECTED (NOT DETECTE); Mycoplasma pneumoniae NOT DETECTED (NOT DETECTE); Parainfluenza Virus 1 NOT DETECTED (NOT DETECTE); Parainfluenza Virus 2 NOT DETECTED (NOT DETECTE); Parainfluenza Virus 3 NOT DETECTED (NOT DETECTE); Parainfluenza Virus 4 NOT DETECTED (NOT DETECTE); Respiratory Syncytial Virus NOT DETECTED (NOT DETECTE); SARS-CoV-2 NOT DETECTED (NOT DETECTE)
[2023-10-16] MEDS: 0.9 % SODIUM CHLORIDE 1,000 ML 100 ML IV (22:40)
[2023-10-16 22:50] LABS: Bilirubin Urine NEGATIVE (NEGATIVE); Blood Urine NEGATIVE (NEGATIVE); Clarity Urine CLEAR (CLEAR); Color Urine BROWN (YELLOW); Glucose Urine UA NEGATIVE (NEGATIVE); Ketones Urine NEGATIVE (NEGATIVE); Leukocyte Esterase Urine NEGATIVE (NEGATIVE); Nitrite Urine NEGATIVE (NEGATIVE); Protein Urine NEGATIVE (NEG/TRACE); pH Urine 8.5 (5.0-9.0)
[2023-10-16 23:02] LABS: Bacteria Urine NONE SEEN #/HPF (NONE SEEN); Cast Seen? NONE SEEN #/LPF (NONE SEEN); Crystals Seen? None Seen #/HPF (None Seen); Mucus Urine NONE SEEN (NONE SEEN); RBC Urine NONE SEEN #/HPF (0-2); Squamous Epithelial Cell Urine RARE #/LPF (NONE/RARE); WBC Urine NONE SEEN #/HPF (NONE SEEN)
[2023-10-17] VITALS (72 sets, daily range): BP systolic 85–108; BP diastolic 57–67; PULSE 55–76; TEMP 36.9–37.2; O2SAT 95–100; BMI 24.3
--- NOTE | 2023-10-17 00:03 | ECG_ITS ---
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
--- OUTSIDE RECORDS SUMMARY | 2023-10-17 00:41 | XMS_ITS ---
Patient Summarization (C-CDA 2.1 CCD) Created on: October 17, 2023 Mr. Uriel Anderson : 1950 Sex: Male Author Organization Sample organization Care Team Providers Care Natural Gas Technician Name Role Phone Giovanni Salinas Primary Care Provider FARA MONACO Referring Unavailable GIOVANNI SALINAS Primary Care Unavailable GIOVANNI SALINAS Primary Care Unavailable GILBERT FRANCO Referring Unavailable PRAVEEN ALVAREZ Admitting Unavailable BRAD, DR [...] Giovanni Salinas II Primary Care Provider Cali, Ahmamaribel Firas Unavailable Cali, Ahmad Firas Unavailable Giovanni Salinas II Primary Care Provider Cali, Mehreenmamaribel Firas Unavailable Josephine Salomon RN Unavailable Grace Bess MD Unavailable Greta Wetzel PA-C Unavailable Zayda ENCARNACION Consulting Unavailable FARA MONACO Attending Unavailable FARA MONACO Admitting Unavailable GIOVANNI SALINAS II Primary Care Unavailable Giovanni Salinas II Primary Care Provider Cali, Mehreenmad Firas Unavailable Josephine Salomon RN Unavailable Grace Bess MD Unavailable [phone] Greta Wetzel PA-C Unavailable César Leiva MD F Unavailable MARIO Salinas Primary Care Provider [phone] DANIKA Padilla Emergency Provider [phone] Brad MARTIN MD, Daniel B Primary Care Provider Josephine Salomon RN Unavailable Jemma Padilla Attending Unavailable Jemma Padilla Admitting Unavailable Giovanni Salinas Primary Care Unavailable GIOVANNI SALINAS Attending Unavailable Ibis Buchanan RD Unavailable Giovanni Salinas MD Unavailable Giovanni Salinas MD Primary Care Provider Brad MARTIN MD, Daniel B Primary Care Provider [phone] GIOVANNI SALINAS II Primary Care Unavailable GRACE BESS Referring Unavailable KARAMLOU, GRACE Attending Unavailable SALINAS [...] SALINAS II, GIOVANNI B Primary Care Unavailable GRTEA WETZEL M Referring Unavailable SALINAS II, GIOVANNI [...] SALINAS II, GIOVANNI B Primary Care Unavailable RASHARD, GRETA Dozier Referring Unavailable SALINAS II, GIOVANNI B Primary [...] Primary Care Unavailable KARAMLOU, GRACE Referring Unavailable Encounters Encounter Date Encounter Type Care Provider Facility Start: 10-13-2023 End: 10-13-2023 ambulatory GIOVANNI SALINAS II Facility:[facility] Start: 10-13-2023 End: 10-13-2023 ambulatory Chair Hannah [...] 10-11-2023 End: 10-11-2023 ambulatory [facility] Work Phone: Hematology/Oncology Comment on above: Leg [...] XR results) Start: 10-03-2023 Telephone encounter Greta Velazquez sser PA-C Work Phone: [facility] Comment on above: Radiology US Start: 10-03-2023 End: 10-03-2023 Office outpatient visit 25 minutes Greta Wetezl PA-C Work Phone: Hematology/Oncology Comment on above: [...] 09-13-2023 End: 09-13-2023 ambulatory GIOVANNI SALINAS II Facility:[facility] Start: 09-13-2023 End: 09-13-2023 Nutrition therapy Yordy Moncada APRN.MEDICAL STAFF DIRECTOR Work Phone: Hematology/Oncology Comment on above: Malignant neoplasm o f head of pancreas (HCC) (Primary Dx); Type 2 diabetes mellitus without complication, with long-term current use of insulin (HCC); Neuropathy; Severe protein-calorie malnutrition (HCC); Diabetes mellitus due to underlying condition with diabetic polyneuropathy, without long-term current use of insulin (HCC) Start: 09-13-2023 End: 09-13-2023 Patient encounter procedure Yordy Moncada APRN.MEDICAL STAFF DIRECTOR Work Phone: Hematology/Oncology Start: 09-13-2023 End: 09-13-2023 ambulatory [facility] Work Phone: Hematology/Oncology Comment on above: Malignant neoplasm o f head of pancreas (HCC) Malignant neoplasm o f head of pancreas (HCC) (Primary Dx) Start: 08-25-2023 End: 08-25-2023 ambulatory GIOVANNI B SALINAS II Facility:[facility] Start: 08-23-2023 End: 08-23-2023 ambulatory GIOVANNI B SALINAS II Facility:[facility] Start: 08-23-2023 End: 08-23-2023 Patient encounter procedure Grace Bess MD Work Phone: [facility] Start: 08-23-2023 End: 08-23-2023 ambulatory [facility] [place] Work Phone: Hematology/Oncology Comment on above: Malignant neoplasm o f head of pancreas (HCC) Malignant neoplasm o f head of pancreas (HCC) (Primary Dx) Start: 08-18-2023 End: 08-18-2023 ambulatory GIOVANNI B SALINAS II Facility:[facility] Start: 08-09-2023 Telephone encounter Josephine Salomon RN Work Phone: Hematology/Oncology Comment on above: Care Coordination (A ppointment cancellation) Start: 08-04-2023 End: 08-05-2023 ambulatory GIOVANNI B SALINAS II Facility:[facility] Start: 08-04-2023 End: 08-04-2023 ambulatory Chair 20 [place] Work Phone: Hematology/Oncology Comment on above: Malignant neoplasm o f head of pancreas (HCC) (Primary Dx) Start: 08-02-2023 End: 08-02-2023 ambulatory GIOVANNI SALINAS II Facility:[facility] Start: 08-02-2023 End: 08-02-2023 Patient encounter procedure Grace Bess MD Work Phone: [facility] Start: 08-02-2023 End: 08-02-2023 ambulatory [facility] [place] [facility] [place] Work Phone: [facility] Comment on above: Malignant neoplasm o f head of pancreas (HCC) (Primary Dx) Start: 08-02-2023 End: 08-02-2023 Nutrition therapy [facility] [place] Work Phone: Hematology/Oncology Comment on above: Malignant neoplasm o f head of pancreas (HCC); Type 2 diabetes mellitus without complication, with long-term current use of insulin (HCC); Neuropathy; Severe protein-calorie malnutrition (HCC) Start: 07-21-2023 End: 07-21-2023 ambulatory GIOVANNI SALINAS II Facility:[facility] Start: 07-21-2023 End: 07-21-2023 ambulatory Chair 20 [place] Work Phone: Hematology/Oncology Comment on above: Malignant neoplasm o f head of pancreas (HCC) (Primary Dx) Start: 07-19-2023 End: 07-19-2023 ambulatory GIOVANNI SALINAS Facility:[facility] Start: 07-19-2023 End: 07-19-2023 Nutrition therapy Ibis [...] 07-19-2023 End: 07-19-2023 ambulatory [facility] [place] [facility] [place] Work Phone: Hematology/Oncology Comment on above: Malignant [...] 07-05-2023 End: 07-05-2023 ambulatory GIOVANNI SALINAS II Facility:[facility] Start: 07-05-2023 End: 07-05-2023 Patient encounter procedure Yordy Moncada APRN.CNP Work Phone: [place] Start: 07-05-2023 End: 07-05-2023 ambulatory [facility] [place] [facility] [place] Work Phone: Hematology/Oncology Comment on above: Malignant neoplasm o f head of pancreas (HCC) Malignant neoplasm o f head of pancreas (HCC) (Primary Dx) Start: 06-23-2023 Telephone encounter Josephine Salomon RN Work Phone: Hematology/Oncology Comment on above: Care Coordination (L ab results) Start: 06-23-2023 End: 06-26-2023 ambulatory GIOVANNI SALINAS II Facility:[facility] Start: 06-23-2023 End: 06-23-2023 ambulatory Chair 20 [place] Work Phone: Hematology/Oncology Comment on above: Malignant neoplasm o f head of pancreas (HCC) (Primary Dx) Start: 06-21-2023 End: 06-21-2023 ambulatory GIOVANNI SALINAS II Facility:[facility] Start: 06-21-2023 End: 06-21-2023 ambulatory GIOVANNI SALINAS II Facility:[facility] Start: 06-09-2023 End: 06-09-2023 ambulatory GIOVANNI SALINAS II Facility:[facility] Start: 06-07-2023 End: 06-07-2023 ambulatory GIOVANNI SALINAS II Facility:[facility] Start: 06-07-2023 End: 06-07-2023 ambulatory GIOVANNI SALINAS II Facility:[facility] Start: 05-24-2023 End: 05-24-2023 ambulatory GRACE BESS Facility:[facility] Start: 05-18-2023 End: 05-18-2023 ambulatory GIOVANNI SALINAS II Facility:[facility] Start: 05-12-2023 End: 05-12-2023 ambulatory GIOVANNI SALINAS II Facility:[facility] Start: 05-05-2023 End: 05-08-2023 ambulatory GRACE BESS Facility:[facility] Start: 05-05-2023 End: 05-05-2023 Patient encounter procedure Grace Bess MD Work Phone: [place] Start: 05-05-2023 End: 05-05-2023 ambulatory Grace Bess MD Work Phone: Hematology/Oncology Comment on above: Malignant neoplasm o f head of pancreas (HCC) (Primary Dx) Start: 05-05-2023 End: 05-05-2023 Nutrition therapy [facility] Work Phone: Hematology/Oncology Comment on above: Type [...] marker results) Start: 04-05-2023 End: 04-06-2023 ambulatory GRACE LIZAAMBROSIO Facility:[facility] Start: 04-05-2023 End: 04-05-2023 Nutrition therapy Yordy Moncada APRN.CNP Work Phone: Hematology/Oncology Comment on above: Malignant neoplasm o f head of pancreas (HCC) (Primary Dx); Type 2 diabetes mellitus without complication, with long-term current use of insulin (HCC); Severe protein-calorie malnutrition (HCC); Anemia, unspecified type Start: 04-05-2023 End: 04-05-2023 Patient encounter procedure Yordy Moncada APRN.CNP Work Phone: [facility] Start: 04-05-2023 End: 04-05-2023 ambulatory [facility] [place] [facility] [place] Work Phone: Hematology/Oncology Comment on above: Malignant neoplasm o f other parts of pancreas (HCC); Type 2 diabetes mellitus without complication, with long-term current use of insulin (HCC); LINDSEY (dyspnea on exertion) Malignant neoplasm o f head of pancreas (HCC) (Primary Dx) Start: 04-04-2023 Telephone encounter Greta woodson PA-C Work Phone: Hematology/Oncology Comment on above: Results; [facility] (Tumor marker results) Start: 03-30-2023 End: 03-31-2023 ambulatory GRACE BESS Facility:[facility] Start: 03-30-2023 End: 03-30-2023 Nutrition therapy Greta [...] 03-08-2023 End: 03-08-2023 ambulatory GIOVANNI SALINAS II Facility:[facility] Start: 03-08-2023 End: 03-08-2023 Patient encounter procedure Grace Bess MD Work Phone: [facility] Start: 03-08-2023 End: 03-08-2023 ambulatory [facility] [place] [facility] [place] Work Phone: Hematology/Oncology Comment on above: Malignant neoplasm o f other parts of pancreas (HCC) Malignant neoplasm o f other parts of pancreas (HCC) (Primary Dx) Malignant neoplasm o f head of pancreas (HCC) (Primary Dx) Start: 03-02-2023 Telephone encounter Josephine Salomon RN Work Phone: Hematology/Oncology Comment on above: Care Coordination (T umor marker results) Start: 03-01-2023 End: 03-01-2023 ambulatory GIOVANNI SALINAS II Facility:[facility] Start: 03-01-2023 End: 03-02-2023 ambulatory [facility] [place] Work Phone: Hematology/Oncology Comment on above: Malignant neoplasm o f other parts of pancreas (HCC) Malignant neoplasm o f head of pancreas (HCC) (Primary Dx) Start: 02-08-2023 End: 02-08-2023 ambulatory GIOVANNI SALINAS II Facility:[facility] Start: 02-08-2023 End: 02-08-2023 ambulatory Chair 11 [place] Work Phone: Hematology/Oncology Comment on above: Malignant neoplasm o f head of pancreas (HCC) (Primary Dx) Start: 02-08-2023 End: 02-08-2023 Nutrition therapy Yordy Moncada APRN.MEDICAL STAFF DIRECTOR Work Phone: Hematology/Oncology Comment on above: Malignant neoplasm o f other parts of pancreas (HCC) (Primary Dx); Type 2 diabetes mellitus without complication, with long-term current use of insulin (HCC); LINDSEY (dyspnea on exertion); Severe protein-calorie malnutrition (HCC) Start: 02-08-2023 End: 02-08-2023 Patient encounter procedure Yordy Moncada APRN.MEDICAL STAFF DIRECTOR Work Phone: [facility] Start: 02-01-2023 Telephone encounter Elisha Osorio Hematology/Oncology Comment on above: Clinical Update Start: 02-01-2023 End: 02-01-2023 Patient encounter procedure Grace Bess MD Work Phone: [place] Start: 02-01-2023 End: 02-01-2023 ambulatory [facility] [place] [facility] [place] Work Phone: Hematology/Oncology Comment on above: Malignant neoplasm o f other parts of pancreas (HCC) Malignant neoplasm o f other parts of pancreas (HCC) (Primary Dx) Malignant neoplasm o f head of pancreas (HCC) (Primary Dx) Start: 01-04-2023 End: 01-04-[address] [facility] Facility:[facility] Start: 01-04-2023 End: 01-04-2023 ambulatory Grace Bess MD Work Phone: Hematology/Oncology Comment on above: Malignant neoplasm o f other parts of pancreas (HCC) (Primary Dx) Start: 01-04-2023 End: 01-04-2023 Patient encounter procedure Grace Bess MD Work Phone: [facility] Start: 12-21-2022 Telephone encounter Josephine Salomon RN Work Phone: Hematology/Oncology Comment on above: Care Coordination (C T results) Start: 12-21-2022 End: 12-21-[address] [facility] Facility:[facility] Start: 12-21-2022 End: 12-21-2022 Nutrition therapy Greta [...] 12-15-2022 Emergency department patient visit Jemma Padilla Facility:[facility] Start: 12-15-2022 End: 12-15-2022 Emergency department patient visit II Giovanni Salinas Work Phone: [facility] Work Phone: Start: 12-14-2022 End: 12-15-2022 ambulatory GIOVANNI SALINAS II Facility:[facility] Start: 12-14-2022 End: 12-14-2022 ambulatory [facility] [place] [facility] [place] Work Phone: Hematology/Oncology Comment on above: Malignant neoplasm o f head of pancreas (HCC) Malignant neoplasm o f head of pancreas (HCC) (Primary Dx) Start: 12-06-2022 Patient encounter procedure [facility] Provider [facility] Start: 12-05-2022 Telephone encounter Grace rebolledo MD [...] encounter procedure Greta Wetzel PA-C Work Phone: [place] Start: 12-05-2022 End: 12-05-2022 ambulatory [facility] [place] Work Phone: Hematology/Oncology Comment on above: Malignant neoplasm o f head of pancreas (HCC) Start: 11-30-2022 End: 11-30-2022 ambulatory GIOVANNI SALINAS II Facility:[facility] Start: 11-30-2022 End: 11-30-2022 Patient encounter procedure Grace Bess MD Work Phone: [place] Start: 11-30-2022 End: 11-30-2022 ambulatory [facility] [place] [facility] [place] Work Phone: Hematology/Oncology Comment on above: Malignant neoplasm o f head of pancreas (HCC) Malignant neoplasm o f head of pancreas (HCC) (Primary Dx) Start: 11-23-2022 End: 11-23-2022 ambulatory GIOVANNI Carter BRAD MARTIN Facility:[facility] Start: 11-23-2022 End: 11-23-2022 Nutrition therapy Greta ODEN-C Work Phone: Hematology/Oncology Comment on above: Malignant neoplasm o f head of pancreas (HCC) (Primary Dx); Anemia, unspecified type; Type 2 diabetes mellitus without complication, with long-term current use of insulin (HCC); Severe protein-calorie malnutrition (HCC) Start: 11-23-2022 End: 11-23-2022 Patient encounter procedure Greta ODEN-C Work Phone: [facility] Start: 11-23-2022 Telephone encounter Greta ODEN-C Work Phone: [facility] Comment on above: Future Appointment Start: 11-23-2022 End: 11-23-2022 ambulatory [facility] [place] [facility] [place] Work Phone: Hematology/Oncology Comment on above: Malignant neoplasm o f head of pancreas (HCC) Malignant neoplasm o f head of pancreas (HCC) (Primary Dx) Start: 11-10-2022 Telephone encounter Josephine Salomon RN Work Phone: Hematology/Oncology Comment on above: Care Coordination (E R recommendation) Start: 11-10-2022 End: 11-10-2022 ambulatory GRACE BESS Facility:[facility] Start: 11-10-2022 End: 11-10-2022 Patient encounter procedure [...] Comment on above: Research (IRB# [id number] Informed Consent) Start: 11-03-2022 End: 11-03-2022 ambulatory GIOVANNI SALINAS II Facility:[facility] Start: 09-29-2022 End: 09-29-2022 Patient encounter procedure Grace Bess MD Work Phone: [facility] Start: 09-29-2022 End: 09-29-2022 ambulatory Grace Bess MD Work Phone: Hematology/Oncology Comment on above: Malignant neoplasm o f head of pancreas (HCC) (Primary Dx) Malignant neoplasm o f head of pancreas (HCC) Start: 08-03-2022 Refill Adina Colón [facility] HB-3 Comment on above: Refill Request [...] pancreas (HCC) (Primary Dx) Start: 06-01-2022 End: 01-11-2023 ambulatory [facility] [place] Work Phone: Hematology/Oncology Comment on above: Malignant neoplasm o f head of pancreas (HCC) Start: 05-11-2022 Telephone encounter Key Osorio Hematology/Oncology Comment on above: Orders Start: 05-11-2022 End: 05-11-2022 Patient encounter procedure Grace Bess MD Work Phone: [facility] Start: 05-11-2022 End: 05-11-2022 ambulatory [facility] [place] [facility] [place] Work Phone: Hematology/Oncology Comment on above: Malignant neoplasm o f head of pancreas (HCC); Anemia, unspecified type Malignant neoplasm o f head of pancreas (HCC) (Primary Dx) Start: 04-27-2022 End: 04-27-2022 ambulatory Chair 12 [place] Work Phone: Hematology/Oncology Comment on above: Malignant neoplasm o f head of pancreas (HCC) (Primary Dx) Malignant neoplasm o f head of pancreas (HCC) (Primary Dx); Anemia, unspecified type Start: 04-27-2022 End: 04-27-2022 Patient encounter procedure Yordy Moncada APRN.CNP Work Phone: [facility] Start: 04-26-2022 End: 04-26-2022 ambulatory [facility] [place] Work Phone: Hematology/Oncology Comment on above: Malignant neoplasm o f head of pancreas (HCC) Start: 04-20-2022 Telephone encounter Josephine Saolmon RN Work Phone: Hematology/Oncology Comment on above: Care Coordination (M edication clarification) Start: 04-20-2022 End: 04-20-2022 ambulatory [facility] [place] [facility] [place] Work Phone: Hematology/Oncology Comment on above: Malignant neoplasm o f head of pancreas (HCC) Start: 04-06-2022 End: 04-06-2022 Patient encounter procedure Greta Wetzel PA-C Work Phone: [facility] Start: 04-06-2022 End: 04-06-2022 ambulatory Greta ODEN-C Work Phone: Hematology/Oncology Comment on [...] clarification) Start: 03-30-2022 End: 03-30-2022 ambulatory Greta ODEN-C Work Phone: Hematology/Oncology Comment on above: Malignant neoplasm o f head of pancreas (HCC) (Primary Dx); Anemia, unspecified type Start: 03-30-2022 End: 03-30-2022 Patient encounter procedure Greta ODEN-C Work Phone: [facility] Start: 03-28-2022 Telephone encounter Jose Antonio LARSON Work Phone: [facility] Comment on above: Results Start: 03-17-2022 Telephone encounter Josephine Salomon RN Work Phone: Hematology/Oncology Comment on above: Care Coordination (S tool results) Start: 03-16-2022 End: 03-16-[address] Work Phone: Nutrition Therapy Comment on above: Nutrition Counseling Start: 03-16-2022 End: 03-16-2022 Telemedicine consultation with patient Jose Antonio LARSON Work Phone: [facility] Start: 03-16-2022 End: 03-16-2022 Patient encounter procedure Greta ODEN-C Work Phone: [facility] Start: 03-16-2022 End: 03-16-2022 ambulatory Greta Wetzel PA-C Work Phone: Hematology/Oncology [...] on Care Coordination (A ntiemetics transferred to [facility] [place]) Start: 03-09-2022 End: 03-09-[address] Work Phone: Nutrition Therapy Comment on above: Nutrition Assessment Start: 03-09-2022 End: 03-09-2022 Patient encounter procedure Grace Bess MD Work Phone: [place] Start: 03-07-2022 Telephone encounter Josephine Salomon RN [...] Start: 02-25-2022 Telephone encounter Vel Sims RN [facility] Radiology Procedure Comment on above: Radiology Pre Proced ure Instructions Start: 02-23-2022 Orders Only Antoinette Marina RN [facility] Radiology Procedure Comment on above: Malignant [...] encounter procedure Grace Bess MD Work Phone: [place] Start: 02-17-2022 End: 02-18-2022 Patient encounter procedure [...] End: 02-11-2021 Evaluation and management of inpatient K [facility] Start: 01-22-2021 End: 02-19-[address] [...] End: 04-16-2020 Patient encounter procedure FARA MONACO [facility] Start: 04-15-2020 End: 04-15-2020 Subsequent hospital visit by physician Giovanni Salinas [facility] Start: 03-16-2020 End: 03-17-2020 Patient encounter procedure GIOVANNI Raul BRAD [facility] Start: 03-16-2020 End: 03-16-2020 Subsequent hospital visit by physician Giovanni Salinas [facility] Start: 11-23-2019 Patient encounter status Eyad Manriquez MD Work Phone: [facility] Work Phone: Medical Equipment Procedure Code Equipment Code Equipment Origin al Text Equipment Identifier Dates [id number] Start: 10-26-2022 Comment on above: use to test BLOOD MCCARTHY GAR TWICE DAILY INJECT ONCE DAILY Tray Powerline Surecuff 5fr Polyurethane Catheter 1 Lumen Microintroducer - [id number] Start: 03-30-2020 Tray Powerline Surecuff 5fr Polyurethane Catheter 1 Lumen Microintroducer - [id number] Start: 12-15-2020 Mesh Surgipro Me dium Clear Polypropylene 2cm Surgical Nonabsorbable Plug - [id number] Start: 01-06-2021 Stent [place] Viabi l 8mm Metal 80mm 200cm Endoprosthesis No Hole Full Cover - [id number] Start: 2021 [id number]_[facility] Start: 03-02-2022 Comment on above: Description: Port in serted at [facility]; Saline only flushes 1 each by Other route in the morning and 1 each before bedtime. [id number] Start: 12-02-2022 Use as instructed [id number] Start: 11-17-2022 End: 11-17-2023 Immunizations Immunization Date Immunization Notes Care Provider Fa cility 12-15-2022 tetanus toxoid, redu pascual diphtheria toxoid, and acellular pertussis vaccine, adsorbed II Giovanni Salinas Work Phone: [facility] 12-27-2020 COVID-19 vaccine ([place]) Eyad Manriquez MD Work Phone: [facility] Medications Current Medications Medication Drug Class(es) Dates [...] 100 tablet 0 03/18/2020 04/17/2020 Active amylases 05208 unt / endopeptidases 70113 unt / lipase 6000 unt delayed release oral capsule (2 sources) take 1 capsule by mouth three times daily at mealtime tgkrea-oqqchyux-o mylase (CREON) 6000 units delayed release capsule [...] by mouth once daily. Continuous Blood Gluc Regional Sales Coordinator (Dexcom G7 Regional Sales Coordinator) device (1 source) Start: 04-17-2023 End: 04-16-2024 Continuous Blood Gluc Regional Sales Coordinator (Dexcom G7 Regional Sales Coordinator) device Indications: Type 2 diabetes mellitus [...] tablet (20 sources) 5-alpha Reductase Inhibitor Start: 021 take 1 tablet by mouth in the [...] (3 mL) Insulin Pen (1 source) Start: 023 inject 6 [IU] by subcutaneous injection once [...] pen injector (1 source) Insulin Analog Start: 023 NovoLOG FLEXPEN 100 UNIT/ML pen INJECT 6-8-10 UNITS according to meal size plus sliding scale DIRECTED (expect up to 30 UNITS DAILY) 0 11/25/2022 Active 1.5 ml insulin glargine 300 unt/ml pen injector (20 sources) Insulin Analog Start: 023 inject 26 [IU] by subcutaneous injection once [...] sources) Quinolone Antimicrobial Start: 10-03-19 End: 10-10-19 take 1 tablet by mouth once daily [...] Start: 03-04-2022 take 1 tablet by memo every six hours as needed prochlorperazine (COMPAZINE) 10 mg tablet Take 1 tablet by mouth every 6 hours as needed. 100 tablet 2 03/04/2022 Active Comment on above: Take 1 tablet by memo every 6 hours as needed. sertraline 25 [...] Start: 02-12-2022 take 1 capsule by mo [facility] [place] [facility] every twenty-four hours in the morning tamsulosin [...] 0.9% 50 mL (DECADRON) (2 sources) Start: End: dexAMETHasone 10 mg in NaCl 0.9% 50 [...] on above: Take 1 capsule by mo [facility] [place] [facility] daily at bedtime for 14 days. Take 1 capsule by mo [facility] [place] [facility] daily at bedtime for 30 days. hyoscyamine [...] to test BLOOD MCCARTHY GAR TWICE DAILY Payers Date Payer Category Payer Self-pay [id number] 2019 Private Health Insurance [employer] A ETNA MEDICARE SUPPLEMENT [id number] 2019-Present [phone] [address] [address] [place], [place] [id number] Indemnity [id number] 2019 Private Health Insurance [employer] [place] MEDIC[employer] SUPPLEMENT [id number] 2019-Present [phone] [address] [address] [place] [address] Indemnity [id number] 2016 Medicare MEDICARE MEDICAR E A AND B [id number] 2016-Present [phone] [address] [address] [place] [address] Medicare [id number] 2016 Medicare [id number] 1959 Medicare [id number] 1959 Private Health Insurance CLI [id number] 1951 Unknown [id number] 2.16.840.1.880625.3.579 .2.173 1951 Unknown [id number] 2.16.840.1.274945.3.579 .2.173 1951 Unknown [id number] 2.16.840.1.056679.3.579 .2.593 1951 Unknown [id number] 2.16.840.1.169177.3.579 .2.593 1951 Unknown [id number] 2.16.840.1.305516.3.579 .2.593 1951 Unknown [id number] 2.16.840.1.386404.3.579 .2.593 1951 Unknown [id number] 2.16.840.1.777585.3.579 .2.593 1951 Unknown [id number] 2.16.840.1.793291.3.579 .2.593 1951 Unknown [id number] 2.16.840.1.029167.3.579 .2.593 1951 Unknown [id number] 2.16.840.1.237459.3.579 .2.593 1951 Unknown [id number] 2.16.840.1.974241.3.579 .2.593 1951 Unknown [id number] 2.16.840.1.338807.3.579 .2.593 1951 Unknown [id number] 2.16.840.1.326662.3.579 .2.593 1951 Unknown [id number] 2.16.840.1.805877.3.579 .2.593 1951 Unknown [id number] 2.16.840.1.391761.3.579 .2.593 1951 Unknown [id number] 2.16.840.1.654571.3.579 .2.593 1951 Unknown [id number] 2.16.840.1.171949.3.579 .2.1259 Unknown [id number] .2.531 Plan of Treatment Date Care Activity Detail Author Start: 12-15-2032 Urine microalbumin profile [facility] Start: 11-12-2029 Screening for malign ant neoplasm of colon [facility] Start: 05-05-2026 Diabetes Screening Diabetes Screenin [facility] Start: 04-05-2026 Diabetes Screening Diabetes Screenin [facility] Start: 03-30-2026 Diabetes Screening Diabetes Screenin g [facility] Start: 03-08-2026 Diabetes Screening Diabetes Screenin g [facility] Start: 03-01-2026 Diabetes Screening Diabetes Screenin g [facility] Start: 02-08-2026 Diabetes Screening Diabetes Screenin g [facility] Start: 02-01-2026 Diabetes Screening Diabetes Screenin g [facility] Start: 01-04-2026 DIABET[facility] Start: 12-21-2025 DIABETES SCREEN [facility] Start: 12-14-2025 DIABETES SCREEN [facility] Start: 11-30-2025 DIABETES SCREEN [facility] Start: 11-23-2025 DIABETES SCREEN DIABETES SCREEN [facility] Start: 11-10-2025 DIABETES SCREEN [facility]CREEN [facility] Start: 10-26-2025 DIABETES SCREEN DIABETES SCREEN [facility] Start: 09-29-2025 DIABETES SCREEN DIABETES SCREEN [facility] Start: 08-02-2025 DIABETES SCREEN DIABETES SCREEN [facility] Start: 06-29-2025 DIABETES SCREEN DIABETES SCREEN [facility] Start: 06-01-2025 DIABETES SCREEN DIABETES SCREEN [facility] Start: 05-11-2025 DIABETES SCREEN DIABETES SCREEN [facility] Start: 04-26-2025 DIABETES SCREEN DIABETES SCREEN [facility] Start: 04-20-2025 DIABETES SCREEN DIABETES SCREEN [facility] Start: 04-06-2025 DIABETES SCREEN DIABETES SCREEN [facility] Start: 03-30-2025 DIABETES SCREEN DIABETES SCREEN [facility] Start: 03-16-2025 DIABETES SCREEN DIABETES SCREEN [facility] Start: 03-07-2025 DIABETES SCREEN DIABETES SCREEN [facility] Start: 11-23-2024 Lipid 1996 panel - S dusty or Plasma Lipid Screening [facility] Start: 11-23-2024 Lipid panel Lipid Screening [facility] Start: 11-23-2024 LIPID SCREEN LIPID SCREEN [facility] Start: 08-17-2024 Screening for malign ant neoplasm of lung Lung Cancer Screening [facility] Start: 05-18-2024 Screening for malign ant neoplasm of lung Lung Cancer Screening [facility] Start: 04-27-2024 Pneumococcal Vaccine : 65+ Years (1 - PCV) Pneumococcal Vaccine: 65+ Years (1 - PCV) [facility] Comment on above: Postponed from 04/21 (Patient Refused) Start: 02-12-2024 DIABETES SCREEN DIABETES SCREEN [facility] Start: 01-21-2024 Influenza vaccination Influenz a Vaccine (Season Ended) [facility] Start: 11-19-2023 Influenza vaccination Influenza Vacc ine (#1) [facility] Comment on above: Postponed from 01/20 [...] 11-04-2023 Influenza vaccination LUNG CANCER SC REENING [facility] Start: 11-04-2023 Screening for malign ant neoplasm of lung Lung Cancer Screening [facility] Start: 11-03-2023 End: 11-03-2023 ambulatory 11/03/2023 11:00 AM [facility] Infusion Center Hematology/Oncology [facility] [place] [address] pump disconnect Hematology/Oncology Comment on above: pump disconnect Start: 11-01-2023 End: 11-01-2023 Follow-up encounter Hematology/Oncology Comment on above: 3 week follow up and chemotx Julia // pump connecct Start: 10-27-2023 Hemoglobin A1c measurement HbA1C [facility] Start: 10-27-2023 Medicare Annual Well ness (AWV) Medicare Annual Wellness (AWV) [facility] Start: 10-27-2023 End: 10-27-2023 ambulatory 10/27/2023 10:30 AM [facility] Infusion Center Hematology/Oncology [facility] [place] [address] pump disconnect Hematology/Oncology Comment on above: pump disconnect Start: 10-25-2023 End: 10-25-2023 Follow-up encounter Hematology/Oncology Comment on above: 3 week follow up and chemotx Julia // pump connecct Start: 10-13-2023 End: 10-13-2023 ambulatory 10/13/2023 11:30 AM [facility] Infusion Center Hematology/Oncology [address] [place] [address] [place] [address] pump disconnect Hematology/Oncology Comment on above: pump disconnect Start: 10-12-2023 End: 10-12-2023 ambulatory 10/12/2023 11:30 AM [facility] Infusion Center Hematology/Oncology [address] [place] [address] [place] [address] pump disconnect Hematology/Oncology Comment on above: pump disconnect Start: 10-11-2023 End: 01-10-2024 Cancer Ag 19-9 [Units/volume] in Serum or Plasma CA 19-9 Lab Routine 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) Expected: 10/11/2023, Expires: 01/10/2024 [facility] Comment on above: Expected: 10/11/2023 , Expires: 01/10/2024 Start: 10-11-2023 End: 01-10-2024 CBC W Auto Differential panel - Blood COMPLETE BLOOD COUNT AND DIFFERENTIAL Lab Routine 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) Expected: 10/11/2023, Expires: 01/10/2024 [facility] Comment on above: Expected: 10/11/2023 , Expires: 01/10/2024 Start: 10-11-2023 End: 01-10-2024 Comprehensive metabolic 2000 panel - Serum or Plasma COMPREHENSIVE METABOLIC PANEL Lab Routine 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) Expected: 10/11/2023, Expires: 01/10/2024 [facility] Work Phone: Comment on above: Expected: 10/11/2023 , Expires: 01/10/2024 Start: 10-11-2023 End: 10-11-2023 Follow-up encounter Hematology/Oncology Comment on above: 3 week follow up and chemotx Julia // pump connecct Start: 10-11-2023 End: 10-11-2023 ambulatory 10/11/2023 9:00 AM [facility] Infusion Center Hematology/Oncology [address] [place], [place] [address] [address] 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 Hematology/Oncology Comment on above: 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 Start: 10-10-2023 End: 10-10-2023 Follow-up encounter Hematology/Oncology Comment on above: 3 week follow up and chemotx Julia // pump connecct Start: 10-05-2023 End: 10-05-2023 ambulatory 10/05/2023 10:30 AM EDT Infusion Center Hematology/Oncology [address] [place] [address] [place] [address] pump disconnect Hematology/Oncology Comment on above: pump disconnect Start: 10-03-2023 End: 01-02-2024 CBC W Auto Differential panel - Blood COMPLETE BLOOD COUNT AND DIFFERENTIAL Lab Routine Leg swelling 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) Neuropathy Acute cough Expected: 10/03/2023, Expires: 01/02/2024 [facility] Comment on above: Expected: 10/03/2023 , Expires: 01/02/2024 Start: 10-03-2023 End: 01-02-2024 Comprehensive metabolic 2000 panel - Serum or Plasma COMPREHENSIVE METABOLIC PANEL Lab Routine Leg swelling 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) Neuropathy Acute cough Expected: 10/03/2023, Expires: 01/02/2024 [facility] Work Phone: Comment on above: Expected: 10/03/2023 , Expires: 01/02/2024 Start: 10-03-2023 End: 10-03-2023 Follow-up encounter Hematology/Oncology Comment on above: 3 week follow up and chemotx Julia // pump connecct Start: 09-25-2023 End: 12-25-2023 Cancer Ag 19-9 [Units/volume] in Serum or Plasma CA 19-9 Lab Routine 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) Neuropathy Expected: 09/25/2023, Expires: 12/25/2023 [facility] Comment on above: Expected: 09/25/2023 , Expires: 12/25/2023 Start: 09-25-2023 End: 12-25-2023 CBC W Auto Differential panel - Blood COMPLETE BLOOD COUNT AND DIFFERENTIAL Lab Routine 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) Neuropathy Expected: 09/25/2023, Expires: 12/25/2023 [facility] Comment on above: Expected: 09/25/2023 , Expires: 12/25/2023 Start: 09-25-2023 End: 12-25-2023 Comprehensive metabolic 2000 panel - Serum or Plasma COMPREHENSIVE METABOLIC PANEL Lab Routine 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) Neuropathy Expected: 09/25/2023, Expires: 12/25/2023 [facility] Work Phone: Comment on above: Expected: 09/25/2023 , Expires: 12/25/2023 Start: 09-15-2023 End: 09-15-2023 ambulatory 09/15/2023 11:00 AM EDT Infusion Center Hematology/Oncology [address] [place] [address] [place] [address] pump disconnect Hematology/Oncology Comment on above: pump disconnect Start: 09-13-2023 End: 12-13-2023 Cancer Ag 19-9 [Units/volume] in Serum or Plasma [facility] Work Phone: Comment on above: Expected: 09/13/2023 (Approximate), Expires: 12/13/2023 Start: 09-13-2023 End: 12-13-2023 CBC W Auto Differential panel - Blood CBC + DIFF Lab Routine 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) Expected: 09/13/2023 (Approximate), Expires: 12/13/2023 [facility] Work Phone: Comment on above: Expected: 09/13/2023 (Approximate), Expires: 12/13/2023 Start: 09-13-2023 End: 12-13-2023 Cobalamin (Vitamin B12) [Mass/volume] in Serum or Plasma VITAMIN B12 BLOOD Lab Routine 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) Expected: 09/13/2023 (Approximate), Expires: 12/13/2023 [facility] Work Phone: Comment on above: Expected: 09/13/2023 (Approximate), Expires: 12/13/2023 Start: 09-13-2023 End: 12-13-2023 Comprehensive metabolic 2000 panel - Serum or Plasma COMP METABOLIC PANEL Lab Routine 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) Expected: 09/13/2023 (Approximate), Expires: 12/13/2023 [facility] Work Phone: Comment on above: Expected: 09/13/2023 (Approximate), Expires: 12/13/2023 Start: 09-13-2023 End: 08-22-2024 Ferritin [Mass/volume] in Serum or Plasma FERRITIN BLD Lab Routine 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) Expected: 09/13/2023 (Approximate), Expires: 08/22/2024 [facility] Work Phone: Comment on above: Expected: 09/13/2023 (Approximate), Expires: 08/22/2024 Start: 09-13-2023 End: 08-22-2024 Iron and Iron binding capacity panel - Serum or Plasma IRON + TIBC Lab Routine 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) Expected: 09/13/2023 (Approximate), Expires: 08/22/2024 [facility] Work Phone: Comment on above: Expected: 09/13/2023 (Approximate), Expires: 08/22/2024 Start: 08-16-2023 End: 11-15-2023 Cancer Ag 19-9 [Units/volume] in Serum or Plasma CA 19-9 BLD Lab Routine 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) Expected: 08/16/2023 (Approximate), Expires: 11/15/2023 [facility] Work Phone: Comment on above: Expected: 08/16/2023 (Approximate), Expires: 11/15/2023 Start: 08-16-2023 End: 11-15-2023 CBC W Auto Differential panel - Blood CBC + DIFF Lab Routine 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) Expected: 08/16/2023 (Approximate), Expires: 11/15/2023 [facility] Work Phone: Comment on above: Expected: 08/16/2023 (Approximate), Expires: 11/15/2023 Start: 08-16-2023 End: 11-15-2023 Comprehensive metabolic 2000 panel - Serum or Plasma COMP METABOLIC PANEL Lab Routine 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) Expected: 08/16/2023 (Approximate), Expires: 11/15/2023 [facility] Work Phone: Comment on above: Expected: 08/16/2023 (Approximate), Expires: 11/15/2023 Start: 08-16-2023 End: 08-31-2024 CT Abdomen and Pelvis W contrast IV CT ABD/PEL W IVCON Radiology Routine 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) Expected: 08/16/2023 (Approximate), Expires: 08/31/2024 [facility] Work Phone: Comment on above: Expected: 08/16/2023 (Approximate), Expires: 08/31/2024 Start: 08-16-2023 End: 08-31-2024 CT Chest W contrast IV CT CHEST W IVCON Radiology Routine 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) Expected: 08/16/2023 (Approximate), Expires: 08/31/2024 [facility] Work Phone: Comment on above: Expected: 08/16/2023 (Approximate), Expires: 08/31/2024 Start: 07-28-2023 Influenza vaccination LUNG CANCER [facility] Start: 07-27-2023 Hemoglobin A1c measurement Diabetes: Hemoglobin A1C [facility] Start: 07-26-2023 End: 10-25-2023 Cancer Ag 19-9 [Units/volume] in Serum or Plasma CA 19-9 BLD Lab Routine 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) Type 2 diabetes mellitus without complication, with long-term current use of insulin (HCC) Neuropathy Severe protein-calorie malnutrition (HCC) Expected: 07/26/2023, Expires: 10/25/2023 [facility] Work Phone: Comment on above: Expected: 07/26/2023 , Expires: 10/25/2023 Start: 07-26-2023 End: 10-25-2023 CBC W Auto Differential panel - Blood CBC + DIFF Lab Routine 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) Type 2 diabetes mellitus without complication, with long-term current use of insulin (HCC) Neuropathy Severe protein-calorie malnutrition (HCC) Expected: 07/26/2023, Expires: 10/25/2023 [facility] Work Phone: Comment on above: Expected: 07/26/2023 , Expires: 10/25/2023 Start: 07-26-2023 End: 10-25-2023 Comprehensive metabolic 2000 panel - Serum or Plasma COMP METABOLIC PANEL Lab Routine 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) Type 2 diabetes mellitus without complication, with long-term current use of insulin (HCC) Neuropathy Severe protein-calorie malnutrition (HCC) Expected: 07/26/2023, Expires: 10/25/2023 [facility] Work Phone: Comment on above: Expected: 07/26/2023 , Expires: 10/25/2023 Start: 07-13-2023 End: 10-12-2023 CBC W Auto Differential panel - Blood CBC + DIFF Lab Routine 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) Expected: 07/13/2023, Expires: 10/12/2023 [facility] Work Phone: Comment on above: Expected: 07/13/2023 , Expires: 10/12/2023 Start: 07-13-2023 End: 10-12-2023 Comprehensive metabolic 2000 panel - Serum or Plasma COMP METABOLIC PANEL Lab Routine 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) Expected: 07/13/2023, Expires: 10/12/2023 [facility] Work Phone: Comment on above: Expected: 07/13/2023 , Expires: 10/12/2023 Start: 05-26-2023 End: 08-25-2023 Cancer Ag 19-9 [Units/volume] in Serum or Plasma CA 19-9 BLD Lab Routine 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) Expected: 05/26/2023 (Approximate), Expires: 08/25/2023 [facility] Work Phone: Comment on above: Expected: 05/26/2023 (Approximate), Expires: 08/25/2023 Start: 05-26-2023 End: 08-25-2023 CBC W Auto Differential panel - Blood CBC + DIFF Lab Routine 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) Expected: 05/26/2023 (Approximate), Expires: 08/25/2023 [facility] Work Phone: Comment on above: Expected: 05/26/2023 (Approximate), Expires: 08/25/2023 Start: 05-26-2023 End: 08-25-2023 Comprehensive metabolic 2000 panel - Serum or Plasma COMP METABOLIC PANEL Lab Routine 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) Expected: 05/26/2023 (Approximate), Expires: 08/25/2023 [facility] Work Phone: Comment on above: Expected: 05/26/2023 (Approximate), Expires: 08/25/2023 Start: 05-26-2023 End: 06-03-2024 Ct abdomen & pelvis w/contrast material CT ABD/PEL W IVCON Radiology Routine 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) Expected: 05/26/2023 (Approximate), Expires: 06/03/2024 [facility] Work Phone: Comment on above: Expected: 05/26/2023 (Approximate), Expires: 06/03/2024 Start: 05-26-2023 End: 06-03-2024 CT CHEST W IVCON CT CHEST W IVCON Radiology Routine Malignant neoplasm of head of pancreas (HCC) Expected: 05/26/2023 (Approximate), Expires: 06/03/2024 [facility] Work Phone: Comment on above: Expected: 05/26/2023 (Approximate), Expires: 06/03/2024 Start: 05-25-2023 Influenza vaccination LUNG CANCER WI RENARD [facility] Start: 05-22-2023 Advance Directive Discussion Advance Directive Discussion [facility] Start: 05-22-2023 Behavioral Health Screening Behavioral Health Screening [facility] Start: 05-22-2023 Depression Assessment Depression Ass essment [facility] Start: 05-12-2023 End: 08-11-2023 CBC W Auto Differential panel - Blood CBC + DIFF Lab Routine Malignant neoplasm of head of pancreas (HCC) Expected: 05/12/2023, Expires: 08/11/2023 [facility] Work Phone: Comment on above: Expected: 05/12/2023 , Expires: 08/11/2023 Start: 04-26-2023 End: 07-26-2023 Cancer Ag 19-9 [Units/volume] in Serum or Plasma CA 19-9 BLD Lab Routine Type 2 diabetes mellitus without complication, with long-term current use of insulin (HCC) Severe protein-calorie malnutrition (HCC) Malignant neoplasm of head of pancreas (HCC) Anemia, unspecified type Expected: 04/26/2023 (Approximate), Expires: 07/26/2023 [facility] Work Phone: Comment on above: Expected: 04/26/2023 (Approximate), Expires: 07/26/2023 Start: 04-26-2023 End: 07-26-2023 CBC W Auto Differential panel - Blood CBC + DIFF Lab Routine Type 2 diabetes mellitus without complication, with long-term current use of insulin (HCC) Severe protein-calorie malnutrition (HCC) Malignant neoplasm of head of pancreas (HCC) Anemia, unspecified type Expected: 04/26/2023 (Approximate), Expires: 07/26/2023 [facility] Work Phone: Comment on above: Expected: 04/26/2023 (Approximate), Expires: 07/26/2023 Start: 04-26-2023 End: 07-26-2023 Comprehensive metabolic 2000 panel - Serum or Plasma COMP METABOLIC PANEL Lab Routine Type 2 diabetes mellitus without complication, with long-term current use of insulin (HCC) Severe protein-calorie malnutrition (HCC) Malignant neoplasm of head of pancreas (HCC) Anemia, unspecified type Expected: 04/26/2023 (Approximate), Expires: 07/26/2023 [facility] Work Phone: Comment on above: Expected: 04/26/2023 (Approximate), Expires: 07/26/2023 Start: 03-30-2023 End: 06-29-2023 Cancer Ag 19-9 [Units/volume] in Serum or Plasma CA 19-9 BLD Lab Routine 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) Expected: 03/30/2023 (Approximate), Expires: 06/29/2023 [facility] Work Phone: Comment on above: Expected: 03/30/2023 (Approximate), Expires: 06/29/2023 Start: 03-30-2023 End: 06-29-2023 CBC W Auto Differential panel - Blood [facility] Work Phone: Comment on above: Expected: 03/30/2023 (Approximate), Expires: 06/29/2023 Expected: 03/30/2023 , Expires: 06/29/2023 Start: 03-30-2023 End: 06-29-2023 Comprehensive metabolic 2000 panel - Serum or Plasma [facility] Work Phone: Comment on above: Expected: 03/30/2023 (Approximate), Expires: 06/29/2023 Expected: 03/30/2023 , Expires: 06/29/2023 Start: 03-07-2023 Influenza vaccination LUNG CANCER [facility] Start: 03-02-2023 End: 05-02-2023 Cancer Ag 19-9 [Units/volume] in Serum or Plasma CA 19-9 BLD Lab Routine 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) Type 2 diabetes mellitus without complication, with long-term current use of insulin (HCC) LINDSEY (dyspnea on exertion) Expected: 03/02/2023, Expires: 05/02/2023 [facility] Work Phone: Comment on above: Expected: 03/02/2023 , Expires: 05/02/2023 Start: 03-02-2023 End: 05-02-2023 CBC W Auto Differential panel - Blood CBC + DIFF Lab Routine 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) Type 2 diabetes mellitus without complication, with long-term current use of insulin (HCC) LINDSEY (dyspnea on exertion) Expected: 03/02/2023, Expires: 05/02/2023 [facility] Work Phone: Comment on above: Expected: 03/02/2023 , Expires: 05/02/2023 Start: 03-02-2023 End: 05-02-2023 Comprehensive metabolic 2000 panel - Serum or Plasma COMP METABOLIC PANEL Lab Routine 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) Type 2 diabetes mellitus without complication, with long-term current use of insulin (HCC) LINDSEY (dyspnea on exertion) Expected: 03/02/2023, Expires: 05/02/2023 [facility] Work Phone: Comment on above: Expected: 03/02/2023 , Expires: 05/02/2023 Start: 03-01-2023 End: 05-01-2023 Cancer Ag 19-9 [Units/volume] in Serum or Plasma [facility] Work Phone: Comment on above: Expected: 03/01/2023 (Approximate), Expires: 05/01/2023 Start: 03-01-2023 End: 05-01-2023 CBC W Auto Differential panel - Blood CBC + DIFF Lab Routine 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) Expected: 03/01/2023 (Approximate), Expires: 05/01/2023 [facility] Work Phone: Comment on above: Expected: 03/01/2023 (Approximate), Expires: 05/01/2023 Start: 03-01-2023 End: 05-01-2023 Comprehensive metabolic 2000 panel - Serum or Plasma [facility] Work Phone: Comment on above: Expected: 03/01/2023 (Approximate), Expires: 05/01/2023 Start: 02-08-2023 End: 04-10-2023 CBC W Auto Differential panel - Blood CBC + DIFF Lab Routine 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) Expected: 02/08/2023 (Approximate), Expires: 04/10/2023 [facility] Work Phone: Comment on above: Expected: 02/08/2023 (Approximate), Expires: 04/10/2023 Start: 02-08-2023 End: 04-10-2023 Comprehensive metabolic 2000 panel - Serum or Plasma COMP METABOLIC PANEL Lab Routine 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) Expected: 02/08/2023 (Approximate), Expires: 04/10/2023 [facility] Work Phone: Comment on above: Expected: 02/08/2023 (Approximate), Expires: 04/10/2023 Start: 02-04-2023 End: 04-06-2023 Cancer Ag 19-9 [Units/volume] in Serum or Plasma CA 19-9 BLD Lab Routine 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) Expected: 02/04/2023 (Approximate), Expires: 04/06/2023 [facility] Work Phone: Comment on above: Expected: 02/04/2023 (Approximate), Expires: 04/06/2023 Start: 02-04-2023 End: 04-06-2023 CBC W Auto Differential panel - Blood CBC + DIFF Lab Routine 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) Expected: 02/04/2023 (Approximate), Expires: 04/06/2023 [facility] Work Phone: Comment on above: Expected: 02/04/2023 (Approximate), Expires: 04/06/2023 Start: 02-04-2023 End: 04-06-2023 Comprehensive metabolic 2000 panel - Serum or Plasma COMP METABOLIC PANEL Lab Routine 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) Expected: 02/04/2023 (Approximate), Expires: 04/06/2023 [facility] Work Phone: Comment on above: Expected: 02/04/2023 (Approximate), Expires: 04/06/2023 Start: 01-20-2023 Influenza vaccination C [facility] Start: 12-14-2022 End: 02-13-2023 Cancer Ag 19-9 [Units/volume] in Serum or Plasma [facility] Work Phone: Comment on above: Expected: 12/14/2022 (Approximate), Expires: 02/13/2023 Start: 12-14-2022 End: 02-13-2023 CBC W Auto Differential panel - Blood CBC + DIFF Lab Routine Malignant neoplasm of head of pancreas (HCC) Expected: 12/14/2022 (Approximate), Expires: 02/13/2023 [facility] Work Phone: Comment on above: Expected: 12/14/2022 (Approximate), Expires: 02/13/2023 Start: 12-14-2022 End: 02-13-2023 Comprehensive metabolic 2000 panel - Serum or Plasma COMP METABOLIC PANEL Lab Routine Malignant neoplasm of head of pancreas (HCC) Expected: 12/14/2022 (Approximate), Expires: 02/13/2023 [facility] Work Phone: Comment on above: Expected: 12/14/2022 (Approximate), Expires: 02/13/2023 Start: 12-07-2022 End: 02-06-2023 CBC W Auto Differential panel - Blood CBC + DIFF Lab Routine Malignant neoplasm of head of pancreas (HCC) Expected: 12/07/2022, Expires: 02/06/2023 [facility] Work Phone: Comment on above: Expected: 12/07/2022 , Expires: 02/06/2023 Start: 12-05-2022 End: 02-04-2023 Cancer Ag 19-9 [Units/volume] in Serum or Plasma CA 19-9 BLD Lab Routine Malignant neoplasm of head of pancreas (HCC) Anemia, unspecified type Type 2 diabetes mellitus without complication, with long-term current use of insulin (HCC) Expected: 12/05/2022, Expires: 02/04/2023 [facility] Work Phone: Comment on above: Expected: 12/05/2022 , Expires: 02/04/2023 Start: 12-05-2022 End: 02-04-2023 CBC W Auto Differential panel - Blood [facility] Work Phone: Comment on above: Expected: 12/05/2022 , Expires: 02/04/2023 Start: 12-05-2022 End: 02-04-2023 Comprehensive metabolic 2000 panel - Serum or Plasma COMP METABOLIC PANEL Lab Routine Malignant neoplasm of head of pancreas (HCC) Anemia, unspecified type Type 2 diabetes mellitus without complication, with long-term current use of insulin (HCC) Expected: 12/05/2022, Expires: 02/04/2023 [facility] Work Phone: Comment on above: Expected: 12/05/2022 , Expires: 02/04/2023 Start: 11-23-2022 End: 01-23-2023 CBC W Auto Differential panel - Blood CBC + DIFF Lab Routine Malignant neoplasm of head of pancreas (HCC) Expected: 11/23/2022, Expires: 01/23/2023 [facility] Work Phone: Comment on above: Expected: 11/23/2022 , Expires: 01/23/2023 Start: 11-23-2022 End: 01-23-2023 Comprehensive metabolic 2000 panel - Serum or Plasma COMP METABOLIC PANEL Lab Routine Malignant neoplasm of head of pancreas (HCC) Expected: 11/23/2022, Expires: 01/23/2023 [facility] Work Phone: Comment on above: Expected: 11/23/2022 , Expires: 01/23/2023 Start: 11-10-2022 End: 01-10-2023 Cancer Ag 19-9 [Units/volume] in Serum or Plasma [facility] Work Phone: Comment on above: Expected: 11/10/2022 (Approximate), Expires: 01/10/2023 Start: 11-10-2022 End: 01-10-2023 CBC W Auto Differential panel - Blood CBC + DIFF Lab Routine Malignant neoplasm of head of pancreas (HCC) Expected: 11/10/2022 (Approximate), Expires: 01/10/2023 [facility] Work Phone: Comment on above: Expected: 11/10/2022 (Approximate), Expires: 01/10/2023 Start: 11-10-2022 End: 01-10-2023 Comprehensive metabolic 2000 panel - Serum or Plasma COMP METABOLIC PANEL Lab Routine Malignant neoplasm of head of pancreas (HCC) Expected: 11/10/2022 (Approximate), Expires: 01/10/2023 [facility] Work Phone: Comment on above: Expected: 11/10/2022 (Approximate), Expires: 01/10/2023 Start: 11-10-2022 End: 10-29-2023 Ct abdomen & pelvis w/contrast material CT ABD/PEL W IVCON Radiology Routine Malignant neoplasm of head of pancreas (HCC) Expected: 11/10/2022 (Approximate), Expires: 10/29/2023 [facility] Work Phone: Comment on above: Expected: 11/10/2022 (Approximate), Expires: 10/29/2023 Start: 11-10-2022 End: 10-29-2023 CT CHEST W IVCON CT CHEST W IVCON Radiology Routine Malignant neoplasm of head of pancreas (HCC) Expected: 11/10/2022 (Approximate), Expires: 10/29/2023 [facility] Work Phone: Comment on above: Expected: 11/10/2022 (Approximate), Expires: 10/29/2023 Start: 09-13-2022 End: 11-13-2022 Cancer Ag 19-9 [Units/volume] in Serum or Plasma CA 19-9 BLD Lab Routine Malignant neoplasm of head of pancreas (HCC) Expected: 09/13/2022 (Approximate), Expires: 11/13/2022 [facility] Work Phone: Comment on above: Expected: 09/13/2022 (Approximate), Expires: 11/13/2022 Start: 09-13-2022 End: 11-13-2022 CBC W Auto Differential panel - Blood CBC + DIFF Lab Routine Malignant neoplasm of head of pancreas (HCC) Expected: 09/13/2022 (Approximate), Expires: 11/13/2022 [facility] Work Phone: Comment on above: Expected: 09/13/2022 (Approximate), Expires: 11/13/2022 Start: 09-13-2022 End: 11-13-2022 Comprehensive metabolic 2000 panel - Serum or Plasma COMP METABOLIC PANEL Lab Routine Malignant neoplasm of head of pancreas (HCC) Expected: 09/13/2022 (Approximate), Expires: 11/13/2022 [facility] Work Phone: Comment on above: Expected: 09/13/2022 (Approximate), Expires: 11/13/2022 Start: 08-03-2022 End: 10-03-2022 Cancer Ag 19-9 [Units/volume] in Serum or Plasma CA 19-9 BLD Lab Routine Malignant neoplasm of head of pancreas (HCC) Expected: 08/03/2022 (Approximate), Expires: 10/03/2022 [facility] Work Phone: Comment on above: Expected: 08/03/2022 (Approximate), Expires: 10/03/2022 Start: 08-03-2022 End: 10-03-2022 CBC W Auto Differential panel - Blood CBC + DIFF Lab Routine Malignant neoplasm of head of pancreas (HCC) Expected: 08/03/2022 (Approximate), Expires: 10/03/2022 [facility] Work Phone: Comment on above: Expected: 08/03/2022 (Approximate), Expires: 10/03/2022 Start: 08-03-2022 End: 10-03-2022 Comprehensive metabolic 2000 panel - Serum or Plasma COMP METABOLIC PANEL Lab Routine Malignant neoplasm of head of pancreas (HCC) Expected: 08/03/2022 (Approximate), Expires: 10/03/2022 [facility] Work Phone: Comment on above: Expected: 08/03/2022 (Approximate), Expires: 10/03/2022 Start: 08-03-2022 End: 07-29-2023 Ct abdomen & pelvis w/contrast material CT ABD/PEL W IVCON Radiology Routine Malignant neoplasm of head of pancreas (HCC) Expected: 08/03/2022, Expires: 07/29/2023 [facility] Work Phone: Comment on above: Expected: 08/03/2022 , Expires: 07/29/2023 Start: 08-03-2022 End: 07-29-2023 CT CHEST W IVCON CT CHEST W IVCON Radiology Routine Malignant neoplasm of head of pancreas (HCC) Expected: 08/03/2022, Expires: 07/29/2023 [facility] Work Phone: Comment on above: Expected: 08/03/2022 , Expires: 07/29/2023 Start: 06-01-2022 End: 08-01-2022 Cancer Ag 19-9 [Units/volume] in Serum or Plasma [facility] Work Phone: Comment on above: Expected: 06/01/2022 (Approximate), Expires: 08/01/2022 Start: 06-01-2022 End: 08-01-2022 CBC W Auto Differential panel - Blood CBC + DIFF Lab Routine Malignant neoplasm of head of pancreas (HCC) Expected: 06/01/2022 (Approximate), Expires: 08/01/2022 [facility] Work Phone: Comment on above: Expected: 06/01/2022 (Approximate), Expires: 08/01/2022 Start: 06-01-2022 End: 08-01-2022 Comprehensive metabolic 2000 panel - Serum or Plasma COMP METABOLIC PANEL Lab Routine Malignant neoplasm of head of pancreas (HCC) Expected: 06/01/2022 (Approximate), Expires: 08/01/2022 [facility] Work Phone: Comment on above: Expected: 06/01/2022 (Approximate), Expires: 08/01/2022 Start: 06-01-2022 End: 06-10-2023 Ct abdomen & pelvis w/contrast material CT ABD/PEL W IVCON Radiology Routine Malignant neoplasm of head of pancreas (HCC) Expected: 06/01/2022, Expires: 06/10/2023 [facility] Work Phone: Comment on above: Expected: 06/01/2022 , Expires: 06/10/2023 Start: 06-01-2022 End: 06-10-2023 CT CHEST W IVCON CT CHEST W IVCON Radiology Routine Malignant neoplasm of head of pancreas (HCC) Expected: 06/01/2022, Expires: 06/10/2023 [facility] Work Phone: Comment on above: Expected: 06/01/2022 , Expires: 06/10/2023 Start: 05-22-2022 ADVANCE DIRECTIVE DISCUSSION ADVANCE DIRECTIVE DISCUSSION [facility] Start: 05-22-2022 DEPRESSION ASSESSMENT DEPRESSION ASS ESSMENT [facility] Start: 05-13-2022 End: 07-13-2022 Cancer Ag 19-9 [Units/volume] in Serum or Plasma CA 19-9 BLD Lab Routine Malignant neoplasm of head of pancreas (HCC) Anemia, unspecified type Expected: 05/13/2022, Expires: 07/13/2022 [facility] Work Phone: Comment on above: Expected: 05/13/2022 , Expires: 07/13/2022 Start: 05-13-2022 End: 07-13-2022 CBC W Auto Differential panel - Blood CBC + DIFF Lab Routine Malignant neoplasm of head of pancreas (HCC) Anemia, unspecified type Expected: 05/13/2022, Expires: 07/13/2022 [facility] Work Phone: Comment on above: Expected: 05/13/2022 , Expires: 07/13/2022 Start: 05-13-2022 End: 07-13-2022 Comprehensive metabolic 2000 panel - Serum or Plasma COMP METABOLIC PANEL Lab Routine Malignant neoplasm of head of pancreas (HCC) Anemia, unspecified type Expected: 05/13/2022, Expires: 07/13/2022 [facility] Work Phone: Comment on above: Expected: 05/13/2022 , Expires: 07/13/2022 Start: 05-11-2022 End: 07-11-2022 CREATININE BLD CREATININE BLD Lab Routine Malignant neoplasm of head of pancreas (HCC) Expected: 05/11/2022, Expires: 07/11/2022 [facility] Work Phone: Comment on above: Expected: 05/11/2022 , Expires: 07/11/2022 Start: 04-06-2022 End: 06-06-2022 Cancer Ag 19-9 [Units/volume] in Serum or Plasma CA 19-9 BLD Lab Routine Malignant neoplasm of head of pancreas (HCC) Expected: 04/06/2022, Expires: 06/06/2022 [facility] Work Phone: Comment on above: Expected: 04/06/2022 , Expires: 06/06/2022 Start: 04-06-2022 End: 06-06-2022 CBC W Auto Differential panel - Blood [facility] Work Phone: Comment on above: Expected: 04/06/2022 , Expires: 06/06/2022 Start: 04-06-2022 End: 06-06-2022 Comprehensive metabolic 2000 panel - Serum or Plasma COMP METABOLIC PANEL Lab Routine Malignant neoplasm of head of pancreas (HCC) Expected: 04/06/2022, Expires: 06/06/2022 [facility] Work Phone: Comment on above: Expected: 04/06/2022 , Expires: 06/06/2022 Start: 03-30-2022 End: 05-30-2022 Cancer Ag 19-9 [Units/volume] in Serum or Plasma [facility] Work Phone: Comment on above: Expected: 03/30/2022 , Expires: 05/30/2022 Start: 03-30-2022 End: 05-30-2022 CBC W Auto Differential panel - Blood CBC + DIFF Lab Routine Malignant neoplasm of head of pancreas (HCC) Expected: 03/30/2022, Expires: 05/30/2022 [facility] Work Phone: Comment on above: Expected: 03/30/2022 , Expires: 05/30/2022 Start: 03-30-2022 End: 05-30-2022 Cobalamin (Vitamin B12) [Mass/volume] in Serum or Plasma [facility] Work Phone: Comment on above: Expected: 03/30/2022 , Expires: 05/30/2022 Start: 03-30-2022 End: 05-30-2022 Comprehensive metabolic 2000 panel - Serum or Plasma COMP METABOLIC PANEL Lab Routine Malignant neoplasm of head of pancreas (HCC) Expected: 03/30/2022, Expires: 05/30/2022 [facility] Work Phone: Comment on above: Expected: 03/30/2022 , Expires: 05/30/2022 Start: 03-23-2022 End: 05-23-2022 CBC W Auto Differential panel - Blood CBC + DIFF Lab Routine Malignant neoplasm of head of pancreas (HCC) Expected: 03/23/2022 (Approximate), Expires: 05/23/2022 [facility] Work Phone: Comment on above: Expected: 03/23/2022 (Approximate), Expires: 05/23/2022 Start: 03-23-2022 End: 05-23-2022 Comprehensive metabolic 2000 panel - Serum or Plasma COMP METABOLIC PANEL Lab Routine Malignant neoplasm of head of pancreas (HCC) Expected: 03/23/2022 (Approximate), Expires: 05/23/2022 [facility] Work Phone: Comment on above: Expected: 03/23/2022 (Approximate), Expires: 05/23/2022 Start: 03-16-2022 End: 05-16-2022 CBC W Auto Differential panel - Blood CBC + DIFF Lab Routine Malignant neoplasm of head of pancreas (HCC) Expected: 03/16/2022 (Approximate), Expires: 05/16/2022 [facility] Work Phone: Comment on above: Expected: 03/16/2022 (Approximate), Expires: 05/16/2022 Start: 03-16-2022 End: 05-16-2022 Comprehensive metabolic 2000 panel - Serum or Plasma COMP METABOLIC PANEL Lab Routine Malignant neoplasm of head of pancreas (HCC) Expected: 03/16/2022 (Approximate), Expires: 05/16/2022 [facility] Work Phone: Comment on above: Expected: 03/16/2022 (Approximate), Expires: 05/16/2022 Start: 03-16-2022 End: 05-16-2022 Ferritin [Mass/volume] in Serum or Plasma [facility] Work Phone: Comment on above: Expected: 03/16/2022 , Expires: 05/16/2022 Start: 03-16-2022 End: 05-16-2022 Folate [Mass/volume] in Serum or Plasma [facility] Work Phone: Comment on above: Expected: 03/16/2022 , Expires: 05/16/2022 Start: 03-16-2022 End: 05-16-2022 Iron and Iron binding capacity panel - Serum or Plasma [facility] Work Phone: Comment on above: Expected: 03/16/2022 , Expires: 05/16/2022 Start: 03-16-2022 End: 05-16-2022 MISC SEND OUT TST 1 [facility] Work Phone: Comment on above: Expected: 03/16/2022 , Expires: 05/16/2022 Start: 03-08-2022 End: 05-08-2022 Cancer Ag 19-9 [Units/volume] in Serum or Plasma CA 19-9 BLD Lab Routine Malignant neoplasm of head of pancreas (HCC) Expected: 03/08/2022 (Approximate), Expires: 05/08/2022 [facility] Work Phone: Comment on above: Expected: 03/08/2022 (Approximate), Expires: 05/08/2022 Start: 03-08-2022 End: 05-08-2022 CBC W Auto Differential panel - Blood CBC + DIFF Lab Routine Malignant neoplasm of head of pancreas (HCC) Expected: 03/08/2022 (Approximate), Expires: 05/08/2022 [facility] Work Phone: Comment on above: Expected: 03/08/2022 (Approximate), Expires: 05/08/2022 Start: 03-08-2022 End: 05-08-2022 Comprehensive metabolic 2000 panel - Serum or Plasma COMP METABOLIC PANEL Lab Routine Malignant neoplasm of head of pancreas (HCC) Expected: 03/08/2022 (Approximate), Expires: 05/08/2022 [facility] Work Phone: Comment on above: Expected: 03/08/2022 (Approximate), Expires: 05/08/2022 Start: 03-08-2022 End: 05-08-2022 MISC SEND OUT TST 1 MISC SEND OUT TST 1 Lab Routine Malignant neoplasm of head of pancreas (HCC) Expected: 03/08/2022 (Approximate), Expires: 05/08/2022 [facility] Work Phone: Comment on above: Expected: 03/08/2022 (Approximate), Expires: 05/08/2022 Start: 03-01-2022 End: 03-24-2023 CT CHEST W IVCON CT CHEST W IVCON Radiology Routine Malignant neoplasm of head of pancreas (HCC) Expected: 03/01/2022, Expires: 03/24/2023 [facility] Work Phone: Comment on above: Expected: 03/01/2022 , Expires: 03/24/2023 Start: 02-23-2022 End: 04-25-2022 PT panel - Platelet poor plasma by Coagulation assay PROTHROMBIN TIME/PT Lab Routine Malignant neoplasm of pancreas, unspecified location of malignancy (HCC) Expected: 02/23/2022, Expires: 04/25/2022 [facility] Work Phone: Comment on above: Expected: 02/23/2022 , Expires: 04/25/2022 Start: 01-20-2022 Influenza vaccination C [facility] Start: 12-04-2021 Colonoscopy COLONOSCOPY [facility] Start: 12-04-2021 COLORECTAL CANCER SCREENING COLORECTAL CANCER SCREENING [facility] Start: 12-04-2021 Screening for malign ant neoplasm of colon [facility] Start: 05-22-2021 ADVANCE DIRECTIVE DISCUSSION ADVANCE DIRECTIVE DISCUSSION [facility] Start: 05-22-2021 DEPRESSION ASSESSMENT DEPRESSION ASS ESSMENT [facility] Start: 03-06-2021 Influenza vaccination LUNG CANCER SC REENING [facility] Start: 03-02-2021 Urine screening for protein Diabetes: Urine Protein Screening [facility] Start: 02-21-2021 COVID-19 VACCINE (2 - Booster for [place] series) COVID-19 VACCINE (2 - Booster for [place] series) [facility] Start: 01-24-2021 COVID-19 VACCINE (2 - [place] risk series) COVID-19 VACCINE (2 - [place] risk series) [facility] Start: 01-20-2021 Influenza vaccination INFLUENZA (#1) [facility] Start: 11-23-2020 Hepatitis B surface antibody level LDL Cholesterol [facility] Start: 03-23-2020 Annual Wellness Visi t (AWV) Annual Wellness Visit (AWV) [place], [place] Start: 03-18-2020 End: 03-18-2020 Office Visit 03/18/2020 Office Visit Oncology Dwayne Moy MD [address] [place] [address] [facility] of [facility] Start: 01-21-2020 Influenza vaccination Flu vaccine (# 1) [place], [place] Start: 2016 Pneumococcal 65+ yea rs Vaccine (1 of 1 - PPSV23) Pneumococcal 65+ years Vaccine (1 of 1 - PPSV23) [place], [place] Start: 2016 PNEUMOCOCCAL: 65+ (1 - PCV) PNEUMOCOCCAL: 65+ (1 - PCV) [facility] Start: 2016 PNEUMOVAX AGE 65 AND OVER WITH 5YR LOOKBACK (#1) PNEUMOVAX AGE 65 AND OVER WITH 5YR LOOKBACK (#1) [facility] Start: 2011 RSV Vaccine (1 - 1-d ose 60+ series) RSV Vaccine (1 - 1-dose 60+ series) [facility] Start: 2001 Screening for malign ant neoplasm of colon Colon cancer screen colonoscopy [place], [place] Start: 2001 Shingles Vaccine (1 of 2) Shingles Vaccine (1 of 2) [place] Start: 2001 SHINGRIX VACCINE (1 of 2) SHINGRIX VACCINE (1 of 2) [facility] Start: 1996 COLOGUARD (FIT-DNA) COLOGUARD (FIT-D NA) [facility] Start: [address] COLONOGRAPHY [facility] Start: 1996 FECAL OCCULT BLOOD FECAL OCCULT BLOO D [facility] Start: 1996 Screening for malign ant neoplasm of colon [facility] Start: 1996 SIGMOIDOSCOPY SIGMOIDOSCOPY [facility] Start: 1991 Diabetes screen Diabetes screen [place], [place] Start: 1991 Lipid panel Lipid screen [place], [place] Start: 1970 DTaP/Tdap/Td vaccine (1 - Tdap) DTaP/Tdap/Td vaccine (1 - Tdap) [place], [place] Start: 1970 SHINGRIX VACCINE (1 of 2) SHINGRIX VACCINE (1 of 2) [facility] Start: 1970 Urine microalbumin profile DTAP,TDAP,TD (1 - Tdap) [facility] Start: 1969 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 Start: 1969 Hepatitis C screening Hepatitis C [facility] Start: 1963 Adult depression screening assessment DEPRESSION SCREENING [facility] Start: 1961 Diabetic foot examination Diabetic Foot Exam [facility] Start: 1961 Glaucoma screening [facility] Start: 1961 Hepatitis B screening Urine Albumin:Creatinine Ratio [facility] Start: 1957 Pneumococcal Vaccine : 65+ (1 - PCV) Pneumococcal Vaccine: 65+ (1 - PCV) [facility] Start: 1957 Pneumococcal Vaccine : 65+ (1 of 2 - PCV) Pneumococcal Vaccine: 65+ (1 of 2 - PCV) [facility] Start: 1957 PNEUMOCOCCAL: 65+ (1 - PCV) PNEUMOCOCCAL: 65+ (1 - PCV) [facility] Start: 1951 Abdominal aortic aneurysm screening [facility] Start: 1951 ABDOMINAL AORTIC ANEURYSM SCREENING ABDOMINAL AORTIC ANEURYSM SCREENING [facility] Start: 1951 Hepatitis C screening Hepatitis C [place], [place] Start: 1951 Screening for malign ant neoplasm of colon [facility] Cancer Ag 19-9 [Units/volume] in Serum or Plasma CA 19-9 BLD Lab Routine Malignant neoplasm of head of pancreas (HCC) 04/20/2022 9:46 AM EST [facility] Work Phone: Cancer Ag 19-9 [Units/volume] in Serum or Plasma CA 19-9 BLD Lab Routine Malignant neoplasm of head of pancreas (HCC) Anemia, unspecified type 05/11/2022 8:59 AM EST [facility] Work Phone: Cancer Ag 19-9 [Units/volume] in Serum or Plasma CA 19-9 BLD Lab Routine Malignant neoplasm of head of pancreas (HCC) 06/29/2022 10:17 AM [facility] Work Phone: Cancer Ag 19-9 [Units/volume] in Serum or Plasma CA 19-9 BLD Lab Routine Malignant neoplasm of head of pancreas (HCC) 08/02/2022 10:21 AM [facility] Work Phone: Cancer Ag 19-9 [Units/volume] in Serum or Plasma CA 19-9 BLD Lab Routine Malignant neoplasm of head of pancreas (HCC) 09/29/2022 10:18 AM [facility] Work Phone: Cancer Ag 19-9 [Units/volume] in Serum or Plasma CA 19-9 BLD Lab Routine 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) 02/01/2023 11:18 AM [facility] Work Phone: Cancer Ag 19-9 [Units/volume] in Serum or Plasma CA 19-9 BLD Lab Routine 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) Type 2 diabetes mellitus without complication, with long-term current use of insulin (HCC) LINDSEY (dyspnea on exertion) 04/05/2023 1:44 PM [facility] Work Phone: Cancer Ag 19-9 [Units/volume] in Serum or Plasma CA 19-9 BLD Lab Routine Type 2 diabetes mellitus without complication, with long-term current use of insulin (HCC) Severe protein-calorie malnutrition (HCC) Malignant neoplasm of head of pancreas (HCC) Anemia, unspecified type 05/05/2023 1:13 PM [facility] Work Phone: Cancer Ag 19-9 [Units/volume] in Serum or Plasma CA 19-9 BLD Lab Routine Malignant neoplasm of head of pancreas (HCC) 07/05/2023 10:33 AM [facility] Work Phone: Cancer Ag 19-9 [Units/volume] in Serum or Plasma CA 19-9 BLD Lab Routine Malignant neoplasm of head of pancreas (HCC) Type 2 diabetes mellitus without complication, with long-term current use of insulin (HCC) Neuropathy Severe protein-calorie malnutrition (HCC) 08/02/2023 10:23 AM EDT [facility] Work Phone: Cancer Ag 19-9 [Units/volume] in Serum or Plasma CA 19-9 BLD Lab Routine Malignant neoplasm of head of pancreas (HCC) 08/23/2023 10:51 AM EDT [facility] Work Phone: Cancer Ag 19-9 [Units/volume] in Serum or Plasma CA 19-9 Lab Routine Malignant neoplasm of head of pancreas (HCC) Neuropathy 10/03/2023 11:18 AM EDT [facility] Work Phone: Clostridioides diffi cile toxin genes [Presence] in Stool by MIRTHA with probe detection C. DIFFICILE PCR Lab Routine Malignant neoplasm of head of pancreas (HCC) Diarrhea, unspecified type Ordered: 03/07/2022 [facility] Work Phone: Comment on above: Ordered: 03/07/2022 End: 01-20-2024 CT CHEST W IVCON PE CT CHEST W IVCON PE Radiology STAT Chest pain, unspecified type LINDSEY (dyspnea on exertion) 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) Anemia, unspecified type Type 2 diabetes mellitus without complication, with long-term current use of insulin (HCC) 1 Occurrences starting 12/21/2022 until 01/20/2024 [facility] Work Phone: Comment on above: 1 Occurrences starti ng 12/21/2022 until 01/20/2024 IR PORTOCATH PLACEMENT IR PORTOC ATH PLACEMENT Radiology Routine Malignant neoplasm of head of pancreas (HCC) Ordered: 02/22/2022 [facility] Work Phone: Comment on above: Ordered: 02/22/2022 Patient Education Head injury in adults [facility] Work Phone: Patient referral [facility] Work Phone: REFERRAL FOR ADDITIO NAL BIOMARKER AND MOLECULAR TESTING REFERRAL FOR ADDITIONAL BIOMARKER AND MOLECULAR TESTING Lab Routine Malignant neoplasm of head of pancreas (HCC) 02/27/2022 10:40 PM EDT [facility] Work Phone: UA DIP, URINE (POC) UA DIP, URIN E (POC) Lab Routine Malignant neoplasm of head of pancreas (HCC) Frequency of urination Ordered: 10/11/2023 [facility] Comment on above: Ordered: 10/11/2023 End: 10-02-2024 US Lower extremity veins - bilateral US LEG VEIN DVT [facility] Vascular Lab STAT Leg swelling 1 Occurrences starting 10/03/2023 until 10/02/2024 [facility] Comment on above: 1 Occurrences starti ng 10/03/2023 until 10/02/2024 [facility] c [facility] c [facility] c [facility] c [facility] c [facility] Problems Active Problems Problem Classification Problem Date [...] Onset: 05-25-2021 Episodic Other aftercare (1 source) shelter (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; 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] Onset: 06-23-2021 Episodic Other [...] sources) Long-term current use of anticoagulant; 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: [shelter (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] Onset: 04-07-2020 12-04-2020 Episodic Other aftercare (20 sources) Long-term current use of insulin; 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: [intermediate manager (current) use of insulin] Onset: 05-08-2020 05-08-2020 [...] [CONTACT W/AND (SUSP) EXPOS COVID-19] Onset: 03-25-2021 Procedures Date Procedure Procedure Detail Performing Clinician [...] count complete auto&auto difrntl wbc Yordy Moncada FOOD SERVICE REPRESENTATIVE.MEDICAL STAFF DIRECTOR Work Phone: Start: 07-19-2023 Blood count complete auto&auto difrntl wbc Yordy Moncada FOOD SERVICE REPRESENTATIVE.MEDICAL STAFF DIRECTOR Work Phone: Start: 07-05-2023 [facility] CBC W AUTO DIFF BLD Generic External Data Provider Start: 07-05-2023 Blood count complete auto&auto difrntl wbc Grace Bess MD Work Phone: Start: 05-05-2023 Blood count complete auto&auto difrntl wbc Yordy Moncada FOOD SERVICE REPRESENTATIVE.MEDICAL STAFF DIRECTOR Work Phone: Start: 04-05-2023 Blood count complete auto&auto difrntl wbc Yordy Moncada FOOD SERVICE REPRESENTATIVE.MEDICAL STAFF DIRECTOR Work Phone: Start: 03-08-2023 Blood count complete auto&auto difrntl wbc Grace Bess MD Work Phone: Start: 03-01-2023 Blood count complete auto&auto difrntl wbc Grace Bess MD Work Phone: Start: 02-01-2023 Blood count complete auto&auto difrntl wbc Grace Bess MD Work Phone: Start: 12-15-2022 CT cervical spine wi thout contrast II Giovanni Brad Work Phone: Start: 12-15-2022 CT of head without contrast II Giovanni Brad Work Phone: Start: 12-14-2022 Blood count complete auto&auto difrntl wbc Grace Bess MD Work Phone: Start: 12-05-2022 CBC + DIFF Grace rebolledo MD Work Phone: Start: 11-30-2022 Blood count complete auto&auto difrntl wbc Greta Dozier Rashard PA-C Work Phone: Start: 11-23-2022 Blood count [...] Blood count complete auto&auto difrntl wbc Yordy Keanu LEONARD Work Phone: Start: 04-26-2022 Blood count complete [...] Grace Bess MD Work Phone: Start: 12-04-2020 Colonoscopy Eyad andrew MD Work Phone: Start: 04-15-2020 Blood count complete auto&auto difrntl wbc TOMS MONACO Start: 04-15-2020 Comprehensive metabo lic panel TOMS MONACO Start: 04-15-2020 Blood count complete auto&auto difrntl wbc Toms Monaco Work Phone: Start: 04-15-2020 Comprehensive metabo lic panel Toms Monaco Work Phone: Start: 03-16-2020 Blood count complete automated TOMS Start: 03-16-2020 Comprehensive metabo lic panel TOMS Start: 03-16-2020 Blood count complete automated Giovanni Salinas Work Phone: Start: 03-16-2020 Comprehensive metabo lic panel Giovanni Salinas Work Phone: Start: 11-24-2019 Lipid 1996 panel - S dusty or Plasma [facility] Work Phone: Start: 11-13-2019 Colonoscopy Generic Pr ovider Results Test Name Value Interpretation Reference Range Facility CBC W Auto Differential pane l (Bld)on 10-11-2023 Basophils (Bld) [#/Vol] 0.04 10*3/uL [facility] Basophils (Bld) [#/Vol] 0.04 10*3/uL Normal <0.11 [facility] Comment on above: Order Comment: Speci men Type: BLOOD SPECIMENOrdering Facility: [facility] Address: [address] [place] [address] Performed By: #### 5 7021-8 ####[facility] LABCLIA [id number] [place] [address] Basophils/100 WBC (Bld) 0.4 % [facility] Basophils/100 WBC (Bld) 0.4 % Normal [facility] Comment on above: Order Comment: Speci men Type: BLOOD SPECIMENOrdering Facility: [facility] Address: [address] [place] [address] Performed By: #### 5 7021-8 ####[facility] LABCLIA [id number] [place] [address] Differential cell count method Nom (Bld) Auto [facility] Differential cell count method Nom (Bld) Auto Normal [facility] Comment on above: Order Comment: Speci men Type: BLOOD SPECIMENOrdering Facility: [facility] Address: [address] [place] [address] Performed By: #### 5 7021-8 ####[facility] LABCLIA [id number] [place] [address] Eosinophils (Bld) [#/Vol] NINF [facility] Eosinophils (Bld) [#/Vol] 10*3/uL Normal <0.46 [facility] Comment on above: Order Comment: Speci men Type: BLOOD SPECIMENOrdering Facility: [facility] Address: [address] [place] [address] Performed By: #### 5 7021-8 ####[facility] LABCLIA [id number] [place] [address] Eosinophils/100 WBC (Bld) 0.2 % [facility] Eosinophils/100 WBC (Bld) 0.2 % Normal [facility] Comment on above: Order Comment: Speci men Type: BLOOD SPECIMENOrdering Facility: [facility] Address: [address] [place] [address] Performed By: #### 5 7021-8 ####[facility] LABCLIA [id number] [place] [address] Erythrocyte distribution width (RBC) [Ratio] 15.2 % High 11.5 - 15.0 % [facility] Erythrocyte distribution width (RBC) [Ratio] 15.2 % High 11.5-15.0 [facility] Comment on above: Order Comment: Speci men Type: BLOOD SPECIMENOrdering Facility: [facility] Address: [address] [place] [address] Performed By: #### 5 7021-8 ####[facility] LABCLIA [id number] [place] [address] Hematocrit (Bld) [Volume fraction] 29.5 % Low 39.0 - 51.0 % [facility] Hematocrit (Bld) [Volume fraction] 29.5 % Low 39.0-51.0 [facility] Comment on above: Order Comment: Speci men Type: BLOOD SPECIMENOrdering Facility: [facility] Address: [address] [place] [address] Performed By: #### 5 7021-8 ####[facility] LABCLIA [id number] [place] [address] Hemoglobin (Bld) [Mass/Vol] 9.6 g/dL Low 13.0 - 17.0 g/dL [facility] Hemoglobin (Bld) [Mass/Vol] 9.6 g/dL Low 13.0-17.0 [facility] Comment on above: Order Comment: Speci men Type: BLOOD SPECIMENOrdering Facility: [facility] Address: [address] [place] [address] Performed By: #### 5 7021-8 ####[facility] LABCLIA [id number] [place] [address] Immature granulocytes (Bld) [#/Vol] 0.12 10*3/uL High NINF [facility] Immature granulocytes (Bld) [#/Vol] 0.12 10*3/uL High <0.10 [facility] Comment on above: Order Comment: Speci men Type: BLOOD SPECIMENOrdering Facility: [facility] Address: [address] [place] [address] Performed By: #### 5 7021-8 ####[facility] LABIA [id number] [place] [address] Immature granulocytes/100 WBC (Bld) 1.2 % [facility] Immature granulocytes/100 WBC (Bld) 1.2 % Normal [facility] Comment on above: Order Comment: Speci men Type: BLOOD SPECIMENOrdering Facility: [facility] Address: [address] [place] [address] Performed By: #### 5 7021-8 ####[facility] LABCLIA [id number] [place] [address] Interpretation and review of laboratory results Abnormal [facility] Lymphocytes (Bld) [#/Vol] 1.53 10*3/uL [facility] Lymphocytes (Bld) [#/Vol] 1.53 10*3/uL Normal 1.00-4.00 [facility] Comment on above: Order Comment: Speci men Type: BLOOD SPECIMENOrdering Facility: [facility] Address: [address] [place], [place] [address] Performed By: #### 5 7021-8 ####[facility] LABCLIA [id number] [place] [id number] Lymphocytes/100 WBC (Bld) 15.3 % [facility] Lymphocytes/100 WBC (Bld) 15.3 % Normal [facility] Comment on above: Order Comment: Speci men Type: BLOOD SPECIMENOrdering Facility: [facility] Address: [address] [place], [place] [address] Performed By: #### 5 7021-8 ####[facility] LABCLIA [id number] [place] [id number] MCH (RBC) [Entitic mass] 30.2 pg 26.0 - 34.0 pg [facility] MCH (RBC) [Entitic mass] 30.2 pg Normal 26.0-34.0 [facility] Comment on above: Order Comment: Speci men Type: BLOOD SPECIMENOrdering Facility: [facility] Address: [address] [place], [place] [address] Performed By: #### 5 7021-8 ####[facility] LABIA [id number] [place] [address] MCHC (RBC) [Mass/Vol] 32.5 g/dL 30.5 - 36.0 g/dL [facility] MCHC (RBC) [Mass/Vol] 32.5 g/dL Normal 30.5-36.0 [facility] Comment on above: Order Comment: Speci men Type: BLOOD SPECIMENOrdering Facility: [facility] Address: [address] [place] [address] Performed By: #### 5 7021-8 ####[facility] LABCLIA [id number] [place] [address] MCV (RBC) [Entitic vol] 92.8 fL 80.0 - 100.0 fL [facility] MCV (RBC) [Entitic vol] 92.8 fL Normal 80.0-100.0 [facility] Comment on above: Order Comment: Speci men Type: BLOOD SPECIMENOrdering Facility: [facility] Address: [address] [place] [address] Performed By: #### 5 7021-8 ####[facility] LABCLIA [id number] [place] [address] Monocytes (Bld) [#/Vol] 0.77 10*3/uL [facility] Monocytes (Bld) [#/Vol] 0.77 10*3/uL Normal <0.87 [facility] Comment on above: Order Comment: Speci men Type: BLOOD SPECIMENOrdering Facility: [facility] Address: [address] [place] [address] Performed By: #### 5 7021-8 ####[facility] LABCLIA [id number] [place] [address] Monocytes/100 WBC (Bld) 7.7 % [facility] Monocytes/100 WBC (Bld) 7.7 % Normal [facility] Comment on above: Order Comment: Speci men Type: BLOOD SPECIMENOrdering Facility: [facility] Address: [address] [place] [address] Performed By: #### 5 7021-8 ####[facility] LABCLIA [id number] [place] [address] Neutrophils (Bld) [#/Vol] 7.54 10*3/uL High [facility] Neutrophils (Bld) [#/Vol] 7.54 10*3/uL High 1.45-7.50 [facility] Comment on above: Order Comment: Speci men Type: BLOOD SPECIMENOrdering Facility: [facility] Address: [address] [place] [address] Performed By: #### 5 7021-8 ####[facility] LABCLIA [id number] [place] [address] Neutrophils/100 WBC (Bld) 75.2 % [facility] Neutrophils/100 WBC (Bld) 75.2 % Normal [facility] Comment on above: Order Comment: Speci men Type: BLOOD SPECIMENOrdering Facility: [facility] Address: [address] [place] [address] Performed By: #### 5 7021-8 ####[facility] LABIA [id number] [place] [address] Nucleated RBC (Bld) [#/Vol] NINF [facility] Nucleated RBC (Bld) [#/Vol] 10*3/uL Normal <0.01 [facility] Comment on above: Order Comment: Speci men Type: BLOOD SPECIMENOrdering Facility: [facility] Address: [address] [place] [address] Performed By: #### 5 7021-8 ####[facility] LABIA [id number] [place] [address] Nucleated RBC/100 WBC (Bld) [Ratio] 0.0 % /100 WBC [facility] Nucleated RBC/100 WBC (Bld) [Ratio] 0.0 /100 WBC Normal [facility] Comment on above: Order Comment: Speci men Type: BLOOD SPECIMENOrdering Facility: [facility] Address: [address] [place] [address] Performed By: #### 5 7021-8 ####[facility] LABCLIA [id number] [place] [address] Platelet mean volume (Bld) [Entitic vol] 10.0 fL 9.0 - 12.7 fL [facility] Platelet mean volume (Bld) [Entitic vol] 10.0 fL Normal 9.0-12.7 [facility] Comment on above: Order Comment: Speci men Type: BLOOD SPECIMENOrdering Facility: [facility] Address: [address] [place] [address] Performed By: #### 5 7021-8 ####[facility] LABIA [id number] [place] [address] Platelets (Bld) [#/Vol] 196 10*3/uL [facility] Platelets (Bld) [#/Vol] 196 10*3/uL Normal 150-400 [facility] Comment on above: Order Comment: Speci men Type: BLOOD SPECIMENOrdering Facility: [facility] Address: [address] [place] [address] Performed By: #### 5 7021-8 ####[facility] LABIA [id number] [place] [address] RBC (Bld) [#/Vol] 3.18 10*6/uL Low 4.20 - 6.0 0 m/uL [facility] RBC (Bld) [#/Vol] 3.18 10*6/uL Low 4.20-6.00 [facility] Comment on above: Order Comment: Speci men Type: BLOOD SPECIMENOrdering Facility: [facility] Address: [address] [place] [address] Performed By: #### 5 7021-8 ####[facility] LABIA [id number] [place] [address] WBC (Bld) [#/Vol] 10.02 10*3/uL [facility] WBC (Bld) [#/Vol] 10.02 10*3/uL Normal 3.70-11.00 [facility] Comment on above: Order Comment: Speci men Type: BLOOD SPECIMENOrdering Facility: [facility] Address: [address] [place] [address] Performed By: #### 5 7021-8 ####[facility] LABCLIA [id number] [place] [address] [facility] CNNURSEon 10-11-2023 CNNURSE Normal [facility] CNOVSPon 10-11-2023 CNOVSP Normal [facility] Comprehensive metabolic 2000 panelon 10-11-2023 Albumin [Mass/Vol] 2.9 g/dL Low 3.9-4.9 [facility] Comment on above: Order Comment: Speci men Type: BLOOD SPECIMENOrdering Facility: [facility] Address: [address] [place] [address] Performed By: #### 2 4323-8 ####[facility] LABCLIA [id number] [place] [address] [place] Albumin [Mass/Vol] 2.9 g/dL Low 3.9 - 4.9 g/dL [facility] ALP [Catalytic activity/Vol] 111 U/L Normal 38-113 [facility] Comment on above: Order Comment: Speci men Type: BLOOD SPECIMENOrdering Facility: [facility] Address: [address] [place] [address] Result Comment: Resu lts may be falsely decreased due to interference from hemolysis. Suggest reorder as clinically indicated. Performed By: #### 2 4323-8 ####[facility] LABCLIA [id number] [place] [address] [place] ALP [Catalytic activity/Vol] 111 U/L 38 - 113 U/L [facility] Comment on above: Results may be false ly decreased due to interference from hemolysis. Suggest reorder as clinically indicated. ALT [Catalytic activity/Vol] 18 U/L Normal 10-54 [facility] Comment on above: Order Comment: Speci men Type: BLOOD SPECIMENOrdering Facility: [facility] Address: [address] [place] [address] Result Comment: Resu lts may be falsely increased due to interference from hemolysis. Suggest reorder as clinically indicated. Performed By: #### 2 4323-8 ####[facility] LABCLIA [id number] [place] [address] [place] ALT [Catalytic activity/Vol] 18 U/L 10 - 54 U/L [facility] Comment on above: Results may be false ly increased due to interference from hemolysis. Suggest reorder as clinically indicated. Anion gap [Moles/Vol] 9 mmol/L Normal 9-18 [facility] Comment on above: Order Comment: Speci men Type: BLOOD SPECIMENOrdering Facility: [facility] Address: [address] [place] [address] Performed By: #### 2 4323-8 ####[facility] LABCLIA [id number] [place] [address] [place] Anion gap [Moles/Vol] 9 mmol/L 9 - 18 mmol/L [facility] AST [Catalytic activity/Vol] 52 U/L High 14-40 [facility] Comment on above: Order Comment: Noemí hoff Type: BLOOD SPECIMENOrdering Facility: [facility] Address: [address] [place] [address] Result Comment: Resu lts may be falsely increased due to interference from hemolysis. Suggest reorder as clinically indicated. Performed By: #### 2 4323-8 ####[facility] LABCLIA [id number] [place] [address] [place] AST [Catalytic activity/Vol] 52 U/L High 14 - 40 U/L [facility] Comment on above: Results may be false ly increased due to interference from hemolysis. Suggest reorder as clinically indicated. Bilirubin [Mass/Vol] 0.5 mg/dL Normal 0.2-1.3 [facility] Comment on above: Order Comment: Rajanii luis eduardo Type: BLOOD SPECIMENOrdering Facility: [facility] Address: [address] [place] [address] Performed By: #### 2 4323-8 ####[facility] LABCLIA [id number] [place] [address] [place] Bilirubin [Mass/Vol] 0.5 mg/dL 0.2 - 1 .3 mg/dL [facility] Calcium [Mass/Vol] 9.7 mg/dL Normal 8.5-10.2 [facility] Comment on above: Order Comment: Speci men Type: BLOOD SPECIMENOrdering Facility: [facility] Address: [address] [place] [address] Performed By: #### 2 4323-8 ####[facility] LABCLIA [id number] [place] [address] [place] Calcium [Mass/Vol] 9.7 mg/dL 8.5 - 10. 2 mg/dL [facility] Chloride [Moles/Vol] 96 mmol/L Low 97-105 [facility] Comment on above: Order Comment: Speci men Type: BLOOD SPECIMENOrdering Facility: [facility] Address: [address] [place] [address] Performed By: #### 2 4323-8 ####[facility] LABCLIA [id number] [place] [address] [place] Chloride [Moles/Vol] 96 mmol/L Low 97 - 10 5 mmol/L [facility] CO2 [Moles/Vol] 23 mmol/L Normal 22-30 [facility] Comment on above: Order Comment: Speci men Type: BLOOD SPECIMENOrdering Facility: [facility] Address: [address] [place] [address] Performed By: #### 2 4323-8 ####[facility] LABCLIA [id number] [place] [address] [place] CO2 [Moles/Vol] 23 mmol/L 22 - 30 mmol/L [facility] Creatinine [Mass/Vol] 0.71 mg/dL Low 0.73-1.22 [facility] Comment on above: Order Comment: Speci men Type: BLOOD SPECIMENOrdering Facility: [facility] Address: [address] [place] [address] Performed By: #### 2 4323-8 ####[facility] LABCLIA [id number] [place] [address] [place] Creatinine [Mass/Vol] 0.71 mg/dL Low 0.73 - 1.22 mg/dL [facility] Creatinine and Glomerular filtration rate.predicted panel (S/P/Bld) 97 mL/min/1.73m??? Normal >=60 [facility] Comment on above: Order Comment: Noemí hoff Type: BLOOD SPECIMENOrdering Facility: [facility] Address: [address] [place] [address] Result Comment: Kathy mated Glomerular Filtration Rate (eGFR) is calculated using the 202 CKD-EPI creatinine equation. This equation utilizes serum creatinine, sex, and age as parameters. The creatinine assay has traceable calibration to isotope dilution-mass spectrometry. Refer to KDIGO guidelines for clinical interpretation. In patients with unstable renal function, e.g. those with acute kidney injury, the eGFR may not accurately reflect actual GFR. Performed By: #### 2 4323-8 ####[facility] LABCLIA [id number] [place] [address] [place] GFR/1.73 sq M.predicted among non-blacks MDRD (S/P/Bld) [Vol rate/Area] 97 mL/min/{1.73_m2} - PINF [facility] Comment on above: Estimated Glomerular Filtration Rate [...] actual GFR. Glucose [Mass/Vol] 158 mg/dL High 74-99 [facility] Comment on above: Order Comment: Noemí hoff Type: BLOOD SPECIMENOrdering Facility: [facility] Address: [address] [place] [address] Result Comment: The [place] [employer] Association (ADA) provides guidance for cutoff [...] Standards of Medical Care in Diabetes 2016, [place] [employer]. Diabetes Care. 2016.39(Suppl 1). Performed By: #### 2 4323-8 ####[facility] LABCLIA [id number] [place] [address] [place] Glucose [Mass/Vol] 158 mg/dL High 74 - 99 mg/dL [facility] Comment on above: The [place] Diabete s Association (ADA) provides guidance for [...] Standards of Medical Care in Diabetes 2016, [place] [employer]. Diabetes Care. 2016.39(Suppl 1). Interpretation and review of laboratory results Abnormal [facility] Potassium [Moles/Vol] Normal [facility] Comment on above: Order Comment: Speci men Type: BLOOD SPECIMENOrdering Facility: [facility] Address: [address] [place] [address] Result Comment: Unab le to assay due to interference from hemolysis. Suggest reorder as clinically indicated. Performed By: #### 2 4323-8 ####[facility] LABIA [id number] [place] [address] [place] Potassium [Moles/Vol] [facility] Comment on above: Unable to assay due to interference from hemolysis. Suggest reorder as clinically indicated. Protein [Mass/Vol] 7.0 g/dL Normal 6.3-8.0 [facility] Comment on above: Order Comment: Speci men Type: BLOOD SPECIMENOrdering Facility: [facility] Address: [address] [place] [address] Performed By: #### 2 4323-8 ####[facility] LABCLIA [id number] [place] [address] [place] Protein [Mass/Vol] 7.0 g/dL 6.3 - 8.0 g/dL [facility] Sodium [Moles/Vol] 128 mmol/L Low 136-144 [facility] Comment on above: Order Comment: Speci men Type: BLOOD SPECIMENOrdering Facility: [facility] Address: [address] [place] [address] Performed By: #### 2 4323-8 ####[facility] LABCLIA [id number] [place] [address] [place] Sodium [Moles/Vol] 128 mmol/L Low 136 - 144 mmol/L [facility] Urea nitrogen [Mass/Vol] 14 mg/dL Normal 9-24 [facility] Comment on above: Order Comment: Speci men Type: BLOOD SPECIMENOrdering Facility: [facility] Address: [address] [place] [address] Performed By: #### 2 4323-8 ####[facility] LABCLIA [id number] [place] [address] [place] Urea nitrogen [Mass/Vol] 14 mg/dL 9 - 24 mg/dL [facility] UA DIP, URINE (POC)on 2023 BILIRUBIN UA (POCT) Negative Negative [facility] CLARITY UA (POCT) Slightly Cloudy Cl [place] [facility] COLOR UA (POCT) Yellow [facility] GLUCOSE UA (POCT) Negative Negative mg/dL [facility] Hemoglobin Ql (U) Negative Negative [facility] Interpretation and review of laboratory results Abnormal [facility] KETONE UA (POCT) Negative Negative mg/dL [facility] LEUKOCYTES UA (POCT) Trace Abnormal Negative [facility] NITRITE UA (POCT) Negative Negative [facility] PH UA (POCT) 6.5 4.5 - 8.0 [facility] Protein Ql (U) Negative Negative mg/dL [facility] SPECIFIC GRAVITY UA (POCT) 1.015 1.005 - 1.030 [facility] UROBILINOGEN UA (POCT) 0.2 Normal E.U./dL [facility] Location:[facility], [address] , [place], [place], [id number] [place] [address] POINT OF CARE [facility] CNPNon 10-05-2023 CNPN Normal [facility] CNPNon 10-04-2023 CNPN Normal [facility] CBC W Auto Differential pane l (Bld)on 10-03-2023 Basophils (Bld) [#/Vol] 0.04 10*3/uL NINF [facility] Basophils (Bld) [#/Vol] 0.04 10*3/uL Normal <0.11 [facility] Comment on above: Order Comment: Speci men Type: BLOOD SPECIMENOrdering Facility: [facility] Address: [address] [place] [address] Performed By: #### 5 7021-8 ####[facility] LABIA [id number] [place] [address] Basophils/100 WBC (Bld) 0.4 % [facility] Basophils/100 WBC (Bld) 0.4 % Normal [facility] Comment on above: Order Comment: Speci men Type: BLOOD SPECIMENOrdering Facility: [facility] Address: [address] [place] [address] Performed By: #### 5 7021-8 ####[facility] LABIA [id number] [place] [address] Differential cell count method Nom (Bld) Auto [facility] Differential cell count method Nom (Bld) Auto Normal [facility] Comment on above: Order Comment: Speci men Type: BLOOD SPECIMENOrdering Facility: [facility] Address: [address] [place] [address] Performed By: #### 5 7021-8 ####[facility] LABCLIA [id number] [place] [address] Eosinophils (Bld) [#/Vol] NINF [facility] Eosinophils (Bld) [#/Vol] 10*3/uL Normal <0.46 [facility] Comment on above: Order Comment: Speci men Type: BLOOD SPECIMENOrdering Facility: [facility] Address: [address] [place] [address] Performed By: #### 5 7021-8 ####[facility] LABCLIA [id number] [place] [address] Eosinophils/100 WBC (Bld) 0.1 % [facility] Eosinophils/100 WBC (Bld) 0.1 % Normal [facility] Comment on above: Order Comment: Speci men Type: BLOOD SPECIMENOrdering Facility: [facility] Address: [address] [place] [address] Performed By: #### 5 7021-8 ####[facility] LABIA [id number] [place] [address] Erythrocyte distribution width (RBC) [Ratio] 14.2 % 11.5 - 15.0 % [facility] Erythrocyte distribution width (RBC) [Ratio] 14.2 % Normal 11.5-15.0 [facility] Comment on above: Order Comment: Speci men Type: BLOOD SPECIMENOrdering Facility: [facility] Address: [address] [place] [address] Performed By: #### 5 7021-8 ####[facility] LABIA [id number] [place] [address] Hematocrit (Bld) [Volume fraction] 29.5 % Low 39.0 - 51.0 % [facility] Hematocrit (Bld) [Volume fraction] 29.5 % Low 39.0-51.0 [facility] Comment on above: Order Comment: Speci men Type: BLOOD SPECIMENOrdering Facility: [facility] Address: [address] [place] [address] Performed By: #### 5 7021-8 ####[facility] LABCLIA [id number] [place] [address] Hemoglobin (Bld) [Mass/Vol] 9.6 g/dL Low 13.0 - 17.0 g/dL [facility] Hemoglobin (Bld) [Mass/Vol] 9.6 g/dL Low 13.0-17.0 [facility] Comment on above: Order Comment: Speci men Type: BLOOD SPECIMENOrdering Facility: [facility] Address: [address] [place] [address] Performed By: #### 5 7021-8 ####[facility] LABCLIA [id number] [place] [address] Immature granulocytes (Bld) [#/Vol] 0.18 10*3/uL High NINF [facility] Immature granulocytes (Bld) [#/Vol] 0.18 10*3/uL High <0.10 [facility] Comment on above: Order Comment: Speci men Type: BLOOD SPECIMENOrdering Facility: [facility] Address: [address] [place] [address] Performed By: #### 5 7021-8 ####[facility] LABIA [id number] [place] [address] Immature granulocytes/100 WBC (Bld) 1.8 % [facility] Immature granulocytes/100 WBC (Bld) 1.8 % Normal [facility] Comment on above: Order Comment: Speci men Type: BLOOD SPECIMENOrdering Facility: [facility] Address: [address] [place] [address] Performed By: #### 5 7021-8 ####[facility] LABCLIA [id number] [place] [address] Lymphocytes (Bld) [#/Vol] 1.28 10*3/uL [facility] Lymphocytes (Bld) [#/Vol] 1.28 10*3/uL Normal 1.00-4.00 [facility] Comment on above: Order Comment: Speci men Type: BLOOD SPECIMENOrdering Facility: [facility] Address: [address] [place], [place] [address] Performed By: #### 5 7021-8 ####[facility] LABIA [id number] [place] [address] Lymphocytes/100 WBC (Bld) 13.0 % [facility] Lymphocytes/100 WBC (Bld) 13.0 % Normal [facility] Comment on above: Order Comment: Speci men Type: BLOOD SPECIMENOrdering Facility: [facility] Address: [address] [place] [address] Performed By: #### 5 7021-8 ####[facility] LABIA [id number] [place] [address] MCH (RBC) [Entitic mass] 31.4 pg 26.0 - 34.0 pg [facility] MCH (RBC) [Entitic mass] 31.4 pg Normal 26.0-34.0 [facility] Comment on above: Order Comment: Speci men Type: BLOOD SPECIMENOrdering Facility: [facility] Address: [address] [place] [address] Performed By: #### 5 7021-8 ####[facility] LABIA [id number] [place] [address] MCHC (RBC) [Mass/Vol] 32.5 g/dL 30.5 - 36.0 g/dL [facility] MCHC (RBC) [Mass/Vol] 32.5 g/dL Normal 30.5-36.0 [facility] Comment on above: Order Comment: Speci men Type: BLOOD SPECIMENOrdering Facility: [facility] Address: [address] [place] [address] Performed By: #### 5 7021-8 ####[facility] LABIA [id number] [place] [address] MCV (RBC) [Entitic vol] 96.4 fL 80.0 - 100.0 fL [facility] MCV (RBC) [Entitic vol] 96.4 fL Normal 80.0-100.0 [facility] Comment on above: Order Comment: Speci men Type: BLOOD SPECIMENOrdering Facility: [facility] Address: [address] [place] [address] Performed By: #### 5 7021-8 ####[facility] LABCLIA [id number] [place] [address] Monocytes (Bld) [#/Vol] 1.25 10*3/uL High NINF [facility] Monocytes (Bld) [#/Vol] 1.25 10*3/uL High <0.87 [facility] Comment on above: Order Comment: Speci men Type: BLOOD SPECIMENOrdering Facility: [facility] Address: [address] [place] [address] Performed By: #### 5 7021-8 ####[facility] LABCLIA [id number] [place] [address] Monocytes/100 WBC (Bld) 12.7 % [facility] Monocytes/100 WBC (Bld) 12.7 % Normal [facility] Comment on above: Order Comment: Speci men Type: BLOOD SPECIMENOrdering Facility: [facility] Address: [address] [place] [address] Performed By: #### 5 7021-8 ####[facility] LABCLIA [id number] [place] [address] Neutrophils (Bld) [#/Vol] 7.08 10*3/uL [facility] Neutrophils (Bld) [#/Vol] 7.08 10*3/uL Normal 1.45-7.50 [facility] Comment on above: Order Comment: Speci men Type: BLOOD SPECIMENOrdering Facility: [facility] Address: [address] [place] [address] Performed By: #### 5 7021-8 ####[facility] LABCLIA [id number] [place] [address] Neutrophils/100 WBC (Bld) 72.0 % [facility] Neutrophils/100 WBC (Bld) 72.0 % Normal [facility] Comment on above: Order Comment: Speci men Type: BLOOD SPECIMENOrdering Facility: [facility] Address: [address] [place] [address] Performed By: #### 5 7021-8 ####[facility] LABCLIA [id number] [place] [address] Nucleated RBC (Bld) [#/Vol] NINF [facility] Nucleated RBC (Bld) [#/Vol] 10*3/uL Normal <0.01 [facility] Comment on above: Order Comment: Speci men Type: BLOOD SPECIMENOrdering Facility: [facility] Address: [address] [place] [address] Performed By: #### 5 7021-8 ####[facility] LABCLIA [id number] [place] [address] Nucleated RBC/100 WBC (Bld) [Ratio] 0.0 % /100 WBC [facility] Nucleated RBC/100 WBC (Bld) [Ratio] 0.0 /100 WBC Normal [facility] Comment on above: Order Comment: Speci men Type: BLOOD SPECIMENOrdering Facility: [facility] Address: [address] [place] [address] Performed By: #### 5 7021-8 ####[facility] LABIA [id number] [place] [address] Platelet mean volume (Bld) [Entitic vol] 9.0 fL 9.0 - 12.7 fL [facility] Platelet mean volume (Bld) [Entitic vol] 9.0 fL Normal 9.0-12.7 [facility] Comment on above: Order Comment: Speci men Type: BLOOD SPECIMENOrdering Facility: [facility] Address: [address] [place] [address] Performed By: #### 5 7021-8 ####[facility] LABIA [id number] [place] [address] Platelets (Bld) [#/Vol] 407 10*3/uL High [facility] Platelets (Bld) [#/Vol] 407 10*3/uL High 150-400 [facility] Comment on above: Order Comment: Speci men Type: BLOOD SPECIMENOrdering Facility: [facility] Address: [address] [place] [address] Performed By: #### 5 7021-8 ####[facility] LABCLIA [id number] [place] [address] RBC (Bld) [#/Vol] 3.06 10*6/uL Low 4.20 - 6.0 0 m/uL [facility] RBC (Bld) [#/Vol] 3.06 10*6/uL Low 4.20-6.00 [facility] Comment on above: Order Comment: Speci men Type: BLOOD SPECIMENOrdering Facility: [facility] Address: [address] [place] [address] Performed By: #### 5 7021-8 ####[facility] LABCLIA [id number] [place] [address] WBC (Bld) [#/Vol] 9.84 10*3/uL [facility] WBC (Bld) [#/Vol] 9.84 10*3/uL Normal 3.70-11.00 [facility] Comment on above: Order Comment: Speci men Type: BLOOD SPECIMENOrdering Facility: [facility] Address: [address] [place] [address] Performed By: #### 5 7021-8 ####[facility] LABIA [id number] [place] [address] CNOVSPon 10-03-2023 CNOVSP Normal [facility] CNPNon 10-03-2023 CNPN Normal [facility] Cancer Ag19-9 SerPl-aCncon 0 10-03-2023 Cancer Ag 19-9 Qn 234.0 [arb'U]/mL High <36.0 C [facility] Comment on above: Order Comment: Speci men Type: BLOOD SPECIMENOrdering Facility: [facility] Address: [address] [place] [address] Result Comment: [facility] er antigen 19-9 test is used as an aid in monitoring response to treatment or recurrence in patients with established pancreatic, hepatobiliary, or gastrointestinal malignancies. Clinical correlation is required.The CA 19-9 Antigen test was performed using the [employer] [place] [employer] DXI paramagnetic particle chemiluminescent immunoassay method. Results obtained with different assay methods or kits cannot be used interchangeably. Performed By: #### 2 4108-3 ####[facility] LABCLIA [id number] [place] [address] [place] Comprehensive metabolic 2000 panelOrdered By: Elizabeth Yu on 10-03-2023 Albumin [Mass/Vol] 3.0 g/dL Low 3.9 - 4.9 g/dL [facility] ALP [Catalytic activity/Vol] 110 U/L 38 - 113 U/L [facility] ALT [Catalytic activity/Vol] 10 U/L 10 - 54 U/L [facility] Anion gap [Moles/Vol] 8 mmol/L Low 9 - 18 mmol/L [facility] AST [Catalytic activity/Vol] 11 U/L Low 14 - 40 U/L [facility] Bilirubin [Mass/Vol] 0.6 mg/dL 0.2 - 1 .3 mg/dL [facility] Calcium [Mass/Vol] 10.4 mg/dL High 8.5 - 10. 2 mg/dL [facility] Chloride [Moles/Vol] 100 mmol/L 97 - 10 5 mmol/L [facility] CO2 [Moles/Vol] 27 mmol/L 22 - 30 mmol/L [facility] Creatinine [Mass/Vol] 0.83 mg/dL 0.73 - 1.22 mg/dL [facility] GFR/1.73 sq M.predicted among non-blacks MDRD (S/P/Bld) [Vol rate/Area] 93 mL/min/{1.73_m2} - PINF [facility] Comment on above: Estimated Glomerular Filtration Rate [...] 167 mg/dL High 74 - 99 mg/dL [facility] Comment on above: The [place] Di[employer] Association (ADA) provides guidance for [...] Standards of Medical Care in Diabetes 2016, [place] [employer]. Diabetes Care. 2016.39(Suppl 1). Potassium [Moles/Vol] 4.3 mmol/L 3.7 - 5.1 mmol/L [facility] Protein [Mass/Vol] 6.9 g/dL 6.3 - 8.0 g/dL [facility] Sodium [Moles/Vol] 135 mmol/L Low 136 - 144 mmol/L [facility] Urea nitrogen [Mass/Vol] 13 mg/dL 9 - 24 mg/dL [facility] Comprehensive metabolic 2000 panelon 10-03-2023 Albumin [Mass/Vol] 3.0 g/dL Low 3.9-4.9 [facility] Comment on above: Order Comment: Speci men Type: BLOOD SPECIMENOrdering Facility: [facility] Address: [address] [place] [address] Performed By: #### 2 4323-8 ####[facility] LABCLIA [id number] [place] [address] ALP [Catalytic activity/Vol] 110 U/L Normal 38-113 [facility] Comment on above: Order Comment: Speci men Type: BLOOD SPECIMENOrdering Facility: [facility] Address: [address] [place] [address] Performed By: #### 2 4323-8 ####[facility] LABCLIA [id number] [place] [address] ALT [Catalytic activity/Vol] 10 U/L Normal 10-54 [facility] Comment on above: Order Comment: Speci men Type: BLOOD SPECIMENOrdering Facility: [facility] Address: [address] [place] [address] Performed By: #### 2 4323-8 ####[facility] LABCLIA [id number] [place] [address] Anion gap [Moles/Vol] 8 mmol/L Low 9-18 [facility] Comment on above: Order Comment: Speci men Type: BLOOD SPECIMENOrdering Facility: [facility] Address: [address] [place] [address] Performed By: #### 2 4323-8 ####[facility] LABCLIA [id number] [place] [address] AST [Catalytic activity/Vol] 11 U/L Low 14-40 [facility] Comment on above: Order Comment: Speci men Type: BLOOD SPECIMENOrdering Facility: [facility] Address: [address] [place] [address] Performed By: #### 2 4323-8 ####[facility] LABCLIA [id number] [place] [address] Bilirubin [Mass/Vol] 0.6 mg/dL Normal 0.2-1.3 [facility] Comment on above: Order Comment: Speci men Type: BLOOD SPECIMENOrdering Facility: [facility] Address: [address] [place] [address] Performed By: #### 2 4323-8 ####[facility] LABCLIA [id number] [place] [address] Calcium [Mass/Vol] 10.4 mg/dL High 8.5-10.2 [facility] Comment on above: Order Comment: Speci men Type: BLOOD SPECIMENOrdering Facility: [facility] Address: [address] [place] [address] Performed By: #### 2 4323-8 ####[facility] LABCLIA [id number] [place] [address] Chloride [Moles/Vol] 100 mmol/L Normal 97-105 [facility] Comment on above: Order Comment: Speci men Type: BLOOD SPECIMENOrdering Facility: [facility] Address: [address] [place] [address] Performed By: #### 2 4323-8 ####[facility] LABCLIA [id number] [place] [address] CO2 [Moles/Vol] 27 mmol/L Normal 22-30 [facility] Comment on above: Order Comment: Speci men Type: BLOOD SPECIMENOrdering Facility: [facility] Address: [address] [place] [address] Performed By: #### 2 4323-8 ####[facility] LABCLIA [id number] [place] [address] Creatinine [Mass/Vol] 0.83 mg/dL Normal 0.73-1.22 [facility] Comment on above: Order Comment: Speci men Type: BLOOD SPECIMENOrdering Facility: [facility] Address: [address] [place] [address] Performed By: #### 2 4323-8 ####[facility] LABCLIA [id number] [place] [address] Creatinine and Glomerular filtration rate.predicted panel (S/P/Bld) 93 mL/min/1.73m??? Normal >=60 [facility] Comment on above: Order Comment: Speci men Type: BLOOD SPECIMENOrdering Facility: [facility] Address: [address] [place] [address] Result Comment: Kathy mated Glomerular Filtration Rate [...] actual GFR. Performed By: #### 2 4323-8 ####[facility] LABCLIA [id number] [place] [address] Glucose [Mass/Vol] 167 mg/dL High 74-99 [facility] Comment on above: Order Comment: Speci men Type: BLOOD SPECIMENOrdering Facility: [facility] Address: [address] [place] [address] Result Comment: The [place] Diabetes Association (ADA) provides guidance for cutoff [...] Standards of Medical Care in Diabetes 2016, [place] [employer]. Diabetes Care. 2016.39(Suppl 1). Performed By: #### 2 4323-8 ####[facility] LABCLIA [id number] [place] [address] Potassium [Moles/Vol] 4.3 mmol/L Normal 3.7-5.1 [facility] Comment on above: Order Comment: Speci men Type: BLOOD SPECIMENOrdering Facility: [facility] Address: [address] [place] [address] Performed By: #### 2 4323-8 ####[facility] LABCLIA [id number] [place] [address] Protein [Mass/Vol] 6.9 g/dL Normal 6.3-8.0 [facility] Comment on above: Order Comment: Noemí hoff Type: BLOOD SPECIMENOrdering Facility: [facility] Address: [address] [place] [address] Performed By: #### 2 4323-8 ####[facility] LABCLIA [id number] [place] [address] Sodium [Moles/Vol] 135 mmol/L Low 136-144 [facility] Comment on above: Order Comment: Speci men Type: BLOOD SPECIMENOrdering Facility: [facility] Address: [address] [place], [place] [address] Performed By: #### 2 4323-8 ####[facility] LABCLIA [id number] [place] [address] Urea nitrogen [Mass/Vol] 13 mg/dL Normal 9-24 [facility] Comment on above: Order Comment: Speci men Type: BLOOD SPECIMENOrdering Facility: [facility] Address: [address] [place], [place] [address] Performed By: #### 2 4323-8 ####[facility] LABCLIA [id number] [place] [address] No Panel InformationOrdered By: Elizabeth Yu on 10-03-2023 Interpretation and review of laboratory results Abnormal [facility] XR CHEST 2V FRONTAL/LATon XR CHEST 2V FRONTAL/LAT Normal [facility] XR Chest PA and Lateralon Radiology Study observation (narrative) [facility] IMPRESSION: No acute radiographic abnormality. Transcribe Date/Time: Oct 03 2023 1:45P Dictated by: JUAN CARLOS LINCOLN MD This examination was interpreted and the report reviewed and electronically signed by: JUAN CARLOS LINCOLN MD on Oct 03 2023 1:51PM EST Thank you for allowing us to participate in the care of your patient. Should there be any questions regarding this interpretation, please call [phone]. If you are unable to reach us at the number above, please feel free to contact [facility]Radiology at [phone]. DIVISION OF RADIOLOGY * * *Final Report* [...] soft tissues: Unremarkable. DIVISION OF RADIOLOGY Provider, [facility] - 10/03/2023 * * *Final Report* [...] any questions regarding this interpretation, please call [phone]. If you are unable to reach us at the number above, please feel free to contact [facility] at [phone]. [facility] XR Chest PA and LateralOrder ed By: Ccf Provider on 10-03-2023 [facility] CNPNon 09-25-2023 CNPN Normal [facility] CNPNon 09-18-2023 CNPN Normal [facility] CBC W Auto Differential pane l (Bld)on 09-13-2023 Basophils (Bld) [#/Vol] [facility] Basophils (Bld) [#/Vol] 10*3/uL Normal <0.11 [facility] Comment on above: Order Comment: Speci men Type: BLOOD SPECIMENOrdering Facility: [facility] Address: [address] [place] [address] Performed By: #### 5 7021-8 ####[facility] LABIA [id number] [place] [address] Basophils/100 WBC (Bld) 0.5 % [facility] Basophils/100 WBC (Bld) 0.5 % Normal [facility] Comment on above: Order Comment: Speci men Type: BLOOD SPECIMENOrdering Facility: [facility] Address: [address] [place] [address] Performed By: #### 5 7021-8 ####[facility] LABIA [id number] [place] [address] Differential cell count method Nom (Bld) Auto [facility] Differential cell count method Nom (Bld) Auto Normal [facility] Comment on above: Order Comment: Speci men Type: BLOOD SPECIMENOrdering Facility: [facility] Address: [address] [place] [address] Performed By: #### 5 7021-8 ####[facility] LABIA [id number] [place] [address] Eosinophils (Bld) [#/Vol] 0.03 10*3/uL [facility] Eosinophils (Bld) [#/Vol] 0.03 10*3/uL Normal <0.46 [facility] Comment on above: Order Comment: Speci men Type: BLOOD SPECIMENOrdering Facility: [facility] Address: [address] [place], [place] [address] Performed By: #### 5 7021-8 ####[facility] LABIA [id number] [place] [address] Eosinophils/100 WBC (Bld) 0.8 % [facility] Eosinophils/100 WBC (Bld) 0.8 % Normal [facility] Comment on above: Order Comment: Speci men Type: BLOOD SPECIMENOrdering Facility: [facility] Address: [address] [place] [address] Performed By: #### 5 7021-8 ####[facility] LABIA [id number] [place] [address] Erythrocyte distribution width (RBC) [Ratio] 14.6 % 11.5 - 15.0 % [facility] Erythrocyte distribution width (RBC) [Ratio] 14.6 % Normal 11.5-15.0 [facility] Comment on above: Order Comment: Speci men Type: BLOOD SPECIMENOrdering Facility: [facility] Address: [address] [place], [place] [address] Performed By: #### 5 7021-8 ####[facility] LABIA [id number] [place] [address] Hematocrit (Bld) [Volume fraction] 35.3 % Low 39.0 - 51.0 % [facility] Hematocrit (Bld) [Volume fraction] 35.3 % Low 39.0-51.0 [facility] Comment on above: Order Comment: Speci men Type: BLOOD SPECIMENOrdering Facility: [facility] Address: [address] [place], [place] [address] Performed By: #### 5 7021-8 ####[facility] LABIA [id number] [place] [address] Hemoglobin (Bld) [Mass/Vol] 11.4 g/dL Low 13.0 - 17.0 g/dL [facility] Hemoglobin (Bld) [Mass/Vol] 11.4 g/dL Low 13.0-17.0 [facility] Comment on above: Order Comment: Speci men Type: BLOOD SPECIMENOrdering Facility: [facility] Address: [address] [place] [address] Performed By: #### 5 7021-8 ####[facility] LABCLIA [id number] [place] [address] Immature granulocytes (Bld) [#/Vol] NINF [facility] Immature granulocytes (Bld) [#/Vol] 10*3/uL Normal <0.10 [facility] Comment on above: Order Comment: Speci men Type: BLOOD SPECIMENOrdering Facility: [facility] Address: [address] [place] [address] Performed By: #### 5 7021-8 ####ESEQUIEL [facility] LABCLIA [id number] [place] [address] Immature granulocytes/100 WBC (Bld) 0.3 % [facility] Immature granulocytes/100 WBC (Bld) 0.3 % Normal [facility] Comment on above: Order Comment: Speci men Type: BLOOD SPECIMENOrdering Facility: [facility] Address: [address] [place] [address] Performed By: #### 5 7021-8 ####ESEQUIEL [facility] LABCLIA [id number] [place] [address] Lymphocytes (Bld) [#/Vol] 1.33 10*3/uL [facility] Lymphocytes (Bld) [#/Vol] 1.33 10*3/uL Normal 1.00-4.00 [facility] Comment on above: Order Comment: Speci men Type: BLOOD SPECIMENOrdering Facility: [facility] Address: [address] [place] [address] Performed By: #### 5 7021-8 ####ESEQUIEL [facility] LABCLIA [id number] [place] [address] Lymphocytes/100 WBC (Bld) 34.2 % [facility] Lymphocytes/100 WBC (Bld) 34.2 % Normal [facility] Comment on above: Order Comment: Speci men Type: BLOOD SPECIMENOrdering Facility: [facility] Address: [address] [place] [address] Performed By: #### 5 7021-8 ####[facility] LABCLIA [id number] [place] [address] MCH (RBC) [Entitic mass] 33.2 pg 26.0 - 34.0 pg [facility] MCH (RBC) [Entitic mass] 33.2 pg Normal 26.0-34.0 [facility] Comment on above: Order Comment: Speci men Type: BLOOD SPECIMENOrdering Facility: [facility] Address: [address] [place] [address] Performed By: #### 5 7021-8 ####[facility] LABCLIA [id number] [place] [address] MCHC (RBC) [Mass/Vol] 32.3 g/dL 30.5 - 36.0 g/dL [facility] MCHC (RBC) [Mass/Vol] 32.3 g/dL Normal 30.5-36.0 [facility] Comment on above: Order Comment: Speci men Type: BLOOD SPECIMENOrdering Facility: [facility] Address: [address] [place] [address] Performed By: #### 5 7021-8 ####[facility] LABCLIA [id number] [place] [address] MCV (RBC) [Entitic vol] 102.9 fL High 80.0 - 100.0 fL [facility] MCV (RBC) [Entitic vol] 102.9 fL High 80.0-100.0 [facility] Comment on above: Order Comment: Speci men Type: BLOOD SPECIMENOrdering Facility: [facility] Address: [address] [place] [address] Performed By: #### 5 7021-8 ####[facility] LABCLIA [id number] [place] [address] Monocytes (Bld) [#/Vol] 0.59 10*3/uL [facility] Monocytes (Bld) [#/Vol] 0.59 10*3/uL Normal <0.87 [facility] Comment on above: Order Comment: Speci men Type: BLOOD SPECIMENOrdering Facility: [facility] Address: [address] [place] [address] Performed By: #### 5 7021-8 ####[facility] LABCLIA [id number] [place] [address] Monocytes/100 WBC (Bld) 15.2 % [facility] Monocytes/100 WBC (Bld) 15.2 % Normal [facility] Comment on above: Order Comment: Speci men Type: BLOOD SPECIMENOrdering Facility: [facility] Address: [address] [place] [address] Performed By: #### 5 7021-8 ####[facility] LABIA [id number] [place] [address] Neutrophils (Bld) [#/Vol] 1.91 10*3/uL [facility] Neutrophils (Bld) [#/Vol] 1.91 10*3/uL Normal 1.45-7.50 [facility] Comment on above: Order Comment: Speci men Type: BLOOD SPECIMENOrdering Facility: [facility] Address: [address] [place] [address] Performed By: #### 5 7021-8 ####[facility] LABIA [id number] [place] [address] Neutrophils/100 WBC (Bld) 49.0 % [facility] Neutrophils/100 WBC (Bld) 49.0 % Normal [facility] Comment on above: Order Comment: Speci men Type: BLOOD SPECIMENOrdering Facility: [facility] Address: [address] [place] [address] Performed By: #### 5 7021-8 ####[facility] LABCLIA [id number] [place] [address] Nucleated RBC (Bld) [#/Vol] [facility] Nucleated RBC (Bld) [#/Vol] 10*3/uL Normal <0.01 [facility] Comment on above: Order Comment: Speci men Type: BLOOD SPECIMENOrdering Facility: [facility] Address: [address] [place] [address] Performed By: #### 5 7021-8 ####[facility] LABCLIA [id number] [place] [address] Nucleated RBC/100 WBC (Bld) [Ratio] 0.0 % /100 WBC [facility] Nucleated RBC/100 WBC (Bld) [Ratio] 0.0 /100 WBC Normal [facility] Comment on above: Order Comment: Speci men Type: BLOOD SPECIMENOrdering Facility: [facility] Address: [address] [place] [address] Performed By: #### 5 7021-8 ####[facility] LABIA [id number] [place] [address] Platelet mean volume (Bld) [Entitic vol] 10.0 fL 9.0 - 12.7 fL [facility] Platelet mean volume (Bld) [Entitic vol] 10.0 fL Normal 9.0-12.7 [facility] Comment on above: Order Comment: Speci men Type: BLOOD SPECIMENOrdering Facility: [facility] Address: [address] [place] [address] Performed By: #### 5 7021-8 ####[facility] LABIA [id number] [place] [address] Platelets (Bld) [#/Vol] 255 10*3/uL [facility] Platelets (Bld) [#/Vol] 255 10*3/uL Normal 150-400 [facility] Comment on above: Order Comment: Speci men Type: BLOOD SPECIMENOrdering Facility: [facility] Address: [address] [place] [address] Performed By: #### 5 7021-8 ####[facility] LABIA [id number] [place] [address] RBC (Bld) [#/Vol] 3.43 10*6/uL Low 4.20 - 6.0 0 m/uL [facility] RBC (Bld) [#/Vol] 3.43 10*6/uL Low 4.20-6.00 [facility] Comment on above: Order Comment: Speci men Type: BLOOD SPECIMENOrdering Facility: [facility] Address: [address] [place] [address] Performed By: #### 5 7021-8 ####[facility] LABCLIA [id number] [place] [address] WBC (Bld) [#/Vol] 3.89 10*3/uL [facility] WBC (Bld) [#/Vol] 3.89 10*3/uL Normal 3.70-11.00 [facility] Comment on above: Order Comment: Speci men Type: BLOOD SPECIMENOrdering Facility: [facility] Address: [address] [place] [address] Performed By: #### 5 7021-8 ####[facility] LABCLIA [id number] [place] [address] CNOVSPon 09-13-2023 CNOVSP Normal [facility] Cancer Ag19-9 SerPl-aCncon 0 09-13-2023 Cancer Ag 19-9 Qn 967.0 [arb'U]/mL High <36.0 C [facility] Comment on above: Order Comment: Speci men Type: BLOOD SPECIMENOrdering Facility: [facility] Address: [address] [place] [address] Result Comment: [facility] er antigen 19-9 test is used as an aid in monitoring response to treatment or recurrence in patients with established pancreatic, hepatobiliary, or gastrointestinal malignancies. Clinical correlation is required.The CA 19-9 Antigen test was performed using the Trochet Unicel DXI paramagnetic particle chemiluminescent immunoassay method. Results obtained with different assay methods or kits cannot be used interchangeably. Performed By: #### 2 4108-3 ####[facility] LABCLIA [id number] [place] [address] [facility] Comprehensive metabolic 2000 panelOrdered By: Je Elias on 09-13-2023 Albumin [Mass/Vol] 3.8 g/dL Low 3.9 - 4.9 g/dL [facility] ALP [Catalytic activity/Vol] 136 U/L High 38 - 113 U/L [facility] ALT [Catalytic activity/Vol] 18 U/L 10 - 54 U/L [facility] Anion gap [Moles/Vol] 10 mmol/L 9 - 18 mmol/L [facility] AST [Catalytic activity/Vol] 16 U/L 14 - 40 U/L [facility] Bilirubin [Mass/Vol] 0.7 mg/dL 0.2 - 1 .3 mg/dL [facility] Calcium [Mass/Vol] 10.3 mg/dL High 8.5 - 10. 2 mg/dL [facility] Chloride [Moles/Vol] 109 mmol/L High 97 - 10 5 mmol/L [facility] CO2 [Moles/Vol] 24 mmol/L 22 - 30 mmol/L [facility] Creatinine [Mass/Vol] 0.81 mg/dL 0.73 - 1.22 mg/dL [facility] GFR/1.73 sq M.predicted among non-blacks MDRD (S/P/Bld) [Vol rate/Area] 94 mL/min/{1.73_m2} - PINF [facility] Comment on above: Estimated Glomerular Filtration Rate [...] 142 mg/dL High 74 - 99 mg/dL [facility] Comment on above: The [place] Di[employer] Association (ADA) provides guidance for [...] Standards of Medical Care in Diabetes 2016, [place] [employer]. Diabetes Care. 2016.39(Suppl 1). Potassium [Moles/Vol] 4.4 mmol/L 3.7 - 5.1 mmol/L [facility] Protein [Mass/Vol] 6.6 g/dL 6.3 - 8.0 g/dL [facility] Sodium [Moles/Vol] 143 mmol/L 136 - 144 mmol/L [facility] Urea nitrogen [Mass/Vol] 16 mg/dL 9 - 24 mg/dL [facility] metabolic 2000 panelon 09-13-2023 Albumin [Mass/Vol] 3.8 g/dL Low 3.9-4.9 [facility] Comment on above: Order Comment: Speci luis eduardo Type: BLOOD SPECIMENOrdering Facility: [facility] Address: [address] [place] [address] Performed By: #### 2 4323-8 ####[facility] LABCLIA [id number] [place] [address] ALP [Catalytic activity/Vol] 136 U/L High 38-113 [facility] Comment on above: Order Comment: Rajanii luis eduardo Type: BLOOD SPECIMENOrdering Facility: [facility] Address: [address] [place] [address] Performed By: #### 2 4323-8 ####[facility] LABCLIA [id number] [place] [address] ALT [Catalytic activity/Vol] 18 U/L Normal 10-54 [facility] Comment on above: Order Comment: Rajanii men Type: BLOOD SPECIMENOrdering Facility: [facility] Address: [address] [place] [address] Performed By: #### 2 4323-8 ####[facility] LABCLIA [id number] [place] [address] Anion gap [Moles/Vol] 10 mmol/L Normal 9-18 [facility] Comment on above: Order Comment: Speci men Type: BLOOD SPECIMENOrdering Facility: [facility] Address: [address] [place] [address] Performed By: #### 2 4323-8 ####[facility] LABCLIA [id number] [place] [address] AST [Catalytic activity/Vol] 16 U/L Normal 14-40 [facility] Comment on above: Order Comment: Speci men Type: BLOOD SPECIMENOrdering Facility: [facility] Address: [address] [place] [address] Performed By: #### 2 4323-8 ####[facility] LABCLIA [id number] [place] [address] Bilirubin [Mass/Vol] 0.7 mg/dL Normal 0.2-1.3 [facility] Comment on above: Order Comment: Speci men Type: BLOOD SPECIMENOrdering Facility: [facility] Address: [address] [place] [address] Performed By: #### 2 4323-8 ####[facility] LABCLIA [id number] [place] [address] Calcium [Mass/Vol] 10.3 mg/dL High 8.5-10.2 [facility] Comment on above: Order Comment: Speci men Type: BLOOD SPECIMENOrdering Facility: [facility] Address: [address] [place] [address] Performed By: #### 2 4323-8 ####[facility] LABCLIA [id number] [place] [address] Chloride [Moles/Vol] 109 mmol/L High 97-105 [facility] Comment on above: Order Comment: Speci men Type: BLOOD SPECIMENOrdering Facility: [facility] Address: [address] [place] [address] Performed By: #### 2 4323-8 ####[facility] LABCLIA [id number] [place] [address] CO2 [Moles/Vol] 24 mmol/L Normal 22-30 [facility] Comment on above: Order Comment: Speci men Type: BLOOD SPECIMENOrdering Facility: [facility] Address: [address] [place] [address] Performed By: #### 2 4323-8 ####[facility] LABCLIA [id number] [place] [address] Creatinine [Mass/Vol] 0.81 mg/dL Normal 0.73-1.22 [facility] Comment on above: Order Comment: Speci men Type: BLOOD SPECIMENOrdering Facility: [facility] Address: [address] [place] [address] Performed By: #### 2 4323-8 ####[facility] [id number] [place] [address] Creatinine and Glomerular filtration rate.predicted panel (S/P/Bld) 94 mL/min/1.73m??? Normal >=60 [facility] Comment on above: Order Comment: Speci men Type: BLOOD SPECIMENOrdering Facility: [facility] Address: [address] [place] [address] Result Comment: Kathy mated Glomerular Filtration Rate [...] actual GFR. Performed By: #### 2 4323-8 ####[facility] LABIA [id number] [place] [address] Glucose [Mass/Vol] 142 mg/dL High 74-99 [facility] Comment on above: Order Comment: Speci men Type: BLOOD SPECIMENOrdering Facility: [facility] Address: [address], [place] [address] Result Comment: The [place] Diabetes Association (ADA) provides guidance for cutoff [...] Standards of Medical Care in Diabetes 2016, [place] [employer]. Diabetes Care. 2016.39(Suppl 1). Performed By: #### 2 4323-8 ####[facility] LABCLIA [id number] [place] [address] Potassium [Moles/Vol] 4.4 mmol/L Normal 3.7-5.1 [facility] Comment on above: Order Comment: Speci men Type: BLOOD SPECIMENOrdering Facility: [facility] Address: [address] [place] [address] Performed By: #### 2 4323-8 ####[facility] LABCLIA [id number] [place] [address] Protein [Mass/Vol] 6.6 g/dL Normal 6.3-8.0 [facility] Comment on above: Order Comment: Speci men Type: BLOOD SPECIMENOrdering Facility: [facility] Address: [address] [place] [address] Performed By: #### 2 4323-8 ####[facility] LABCLIA [id number] [place] [address] Sodium [Moles/Vol] 143 mmol/L Normal 136-144 [facility] Comment on above: Order Comment: Speci men Type: BLOOD SPECIMENOrdering Facility: [facility] Address: [address] [place] [address] Performed By: #### 2 4323-8 ####[facility] LABCLIA [id number] [place] [address] Urea nitrogen [Mass/Vol] 16 mg/dL Normal 9-24 [facility] Comment on above: Order Comment: Speci men Type: BLOOD SPECIMENOrdering Facility: [facility] Address: [address] [place] [address] Performed By: #### 2 4323-8 ####[facility] LABCLIA [id number] [place] [address] FERRITIN BLDon 09-13-2023 Ferritin [Mass/Vol] 56.8 ng/mL 30.3 - 565.7 ng/mL [facility] Ferritin SerPl-mCncon 2023 Ferritin [Mass/Vol] 56.8 ng/mL Normal 30.3-565.7 [facility] Comment on above: Order Comment: Speci men Type: BLOOD SPECIMENOrdering Facility: [facility] Address: [address] [place] [address] Performed By: #### 5 0190-8, 6-4, 2132-01 ####[facility] LABCLIA [id number] [place] [address] [place] Iron and Iron binding capaci ty panelon 09-13-2023 Iron [Mass/Vol] 55 ug/dL Normal 41-186 [facility] Comment on above: Order Comment: Speci men Type: BLOOD SPECIMENOrdering Facility: [facility] Address: [address] [place] [address] Performed By: #### 5 0190-8, 6-4, 2132-01 ####[facility] LABIA [id number] [place] [address] [place] Iron [Mass/Vol] 55 ug/dL 41 - 186 ug/dL [facility] Iron binding capacity [Mass/Vol] 335 ug/dL Normal 232-386 [facility] Comment on above: Order Comment: Speci men Type: BLOOD SPECIMENOrdering Facility: [facility] Address: [address] [place] [address] Performed By: #### 5 0190-8, 2275-08, 2132-01 ####[facility] LABCLIA [id number] [place] [id number] [place] Iron binding capacity [Mass/Vol] 335 ug/dL 232 - 386 ug/dL [facility] Iron/TIBC [Molar ratio] 16.4 % Normal 15.0-57.0 [facility] Comment on above: Order Comment: Speci men Type: BLOOD SPECIMENOrdering Facility: [facility] Address: [address] [place], [place] [address] Performed By: #### 5 0190-8, 2275-08, 2132-01 ####[facility] LABIA [id number] [place] [id number] [place] Iron/TIBC [Molar ratio] 16.4 % 15.0 - 57.0 % [facility] No Panel InformationOrdered By: eJ Elias on 09-13-2023 Interpretation and review of laboratory results Abnormal [facility] No Panel Informationon 09-12 Interpretation and review of laboratory results Normal [facility] VITAMIN B12 BLOODon 09-13-19 24 Cobalamin (Vitamin B12) [Mass/Vol] 720 pg/mL 232 - 1245 pg/mL [facility] Vit B12 SerPl-mCncon 024 Cobalamin (Vitamin B12) [Mass/Vol] 720 pg/mL Normal 232-1245 [facility] Comment on above: Order Comment: Speci men Type: BLOOD SPECIMENOrdering Facility: [facility] Address: [address] [place] [id number] Performed By: #### 5 0190-8, 2275-08, 2132-01 ####[facility] LABIA [id number] [place] [id number] [place] CBC W Auto Differential pane l (Bld)on 08-23-2023 Basophils (Bld) [#/Vol] <0.11 k/uL [facility] Basophils (Bld) [#/Vol] 10*3/uL Normal <0.11 [facility] Comment on above: Order Comment: Speci men Type: BLOOD SPECIMENOrdering Facility: [facility] Address: [address] [place] [address] Performed By: #### 5 7021-8 ####[facility] LABCLIA [id number] [place] [address] Basophils/100 WBC (Bld) 0.4 % [facility] Basophils/100 WBC (Bld) 0.4 % Normal [facility] Comment on above: Order Comment: Speci men Type: BLOOD SPECIMENOrdering Facility: [facility] Address: [address] [place] [address] Performed By: #### 5 7021-8 ####[facility] LABCLIA [id number] [place] [address] Differential cell count method Nom (Bld) Auto [facility] Differential cell count method Nom (Bld) Auto Normal [facility] Comment on above: Order Comment: Speci men Type: BLOOD SPECIMENOrdering Facility: [facility] Address: [address] [place] [address] Performed By: #### 5 7021-8 ####[facility] LABCLIA [id number] [place] [address] Eosinophils (Bld) [#/Vol] 0.04 10*3/uL <0.46 k/uL [facility] Eosinophils (Bld) [#/Vol] 0.04 10*3/uL Normal <0.46 [facility] Comment on above: Order Comment: Speci men Type: BLOOD SPECIMENOrdering Facility: [facility] Address: [address] [place] [address] Performed By: #### 5 7021-8 ####[facility] LABCLIA [id number] [place] [address] Eosinophils/100 WBC (Bld) 0.8 % [facility] Eosinophils/100 WBC (Bld) 0.8 % Normal [facility] Comment on above: Order Comment: Speci men Type: BLOOD SPECIMENOrdering Facility: [facility] Address: [address] [place] [address] Performed By: #### 5 7021-8 ####[facility] LABCLIA [id number] [place] [address] Erythrocyte distribution width (RBC) [Ratio] 15.3 % High 11.5 - 15.0 % [facility] Erythrocyte distribution width (RBC) [Ratio] 15.3 % High 11.5-15.0 [facility] Comment on above: Order Comment: Speci men Type: BLOOD SPECIMENOrdering Facility: [facility] Address: [address] [place] [address] Performed By: #### 5 7021-8 ####[facility] LABIA [id number] [place] [address] Hematocrit (Bld) [Volume fraction] 34.6 % Low 39.0 - 51.0 % [facility] Hematocrit (Bld) [Volume fraction] 34.6 % Low 39.0-51.0 [facility] Comment on above: Order Comment: Speci men Type: BLOOD SPECIMENOrdering Facility: [facility] Address: [address] [place] [address] Performed By: #### 5 7021-8 ####[facility] LABIA [id number] [place] [address] Hemoglobin (Bld) [Mass/Vol] 11.3 g/dL Low 13.0 - 17.0 g/dL [facility] Hemoglobin (Bld) [Mass/Vol] 11.3 g/dL Low 13.0-17.0 [facility] Comment on above: Order Comment: Speci men Type: BLOOD SPECIMENOrdering Facility: [facility] Address: [address] [place] [address] Performed By: #### 5 7021-8 ####[facility] LABIA [id number] [place] [address] Immature granulocytes (Bld) [#/Vol] <0.10 k/uL [facility] Immature granulocytes (Bld) [#/Vol] 10*3/uL Normal <0.10 [facility] Comment on above: Order Comment: Speci men Type: BLOOD SPECIMENOrdering Facility: [facility] Address: [address] [place] [address] Performed By: #### 5 7021-8 ####[facility] LABCLIA [id number] [place] [address] Immature granulocytes/100 WBC (Bld) 0.4 % [facility] Immature granulocytes/100 WBC (Bld) 0.4 % Normal [facility] Comment on above: Order Comment: Speci men Type: BLOOD SPECIMENOrdering Facility: [facility] Address: [address] [place] [address] Performed By: #### 5 7021-8 ####[facility] LABCLIA [id number] [place] [address] Lymphocytes (Bld) [#/Vol] 1.95 10*3/uL 1.00 - 4.00 k/uL [facility] Lymphocytes (Bld) [#/Vol] 1.95 10*3/uL Normal 1.00-4.00 [facility] Comment on above: Order Comment: Speci men Type: BLOOD SPECIMENOrdering Facility: [facility] Address: [address] [place] [address] Performed By: #### 5 7021-8 ####[facility] LABCLIA [id number] [place] [address] Lymphocytes/100 WBC (Bld) 40.7 % [facility] Lymphocytes/100 WBC (Bld) 40.7 % Normal [facility] Comment on above: Order Comment: Speci men Type: BLOOD SPECIMENOrdering Facility: [facility] Address: [address] [place] [address] Performed By: #### 5 7021-8 ####[facility] LABCLIA [id number] [place] [address] MCH (RBC) [Entitic mass] 34.1 pg High 26.0 - 34.0 pg [facility] MCH (RBC) [Entitic mass] 34.1 pg High 26.0-34.0 [facility] Comment on above: Order Comment: Speci men Type: BLOOD SPECIMENOrdering Facility: [facility] Address: [address] [place] [address] Performed By: #### 5 7021-8 ####[facility] LABCLIA [id number] [place] [address] MCHC (RBC) [Mass/Vol] 32.7 g/dL 30.5 - 36.0 g/dL [facility] MCHC (RBC) [Mass/Vol] 32.7 g/dL Normal 30.5-36.0 [facility] Comment on above: Order Comment: Speci men Type: BLOOD SPECIMENOrdering Facility: [facility] Address: [address] [place] [address] Performed By: #### 5 7021-8 ####[facility] LABCLIA [id number] [place] [address] MCV (RBC) [Entitic vol] 104.5 fL High 80.0 - 100.0 fL [facility] MCV (RBC) [Entitic vol] 104.5 fL High 80.0-100.0 [facility] Comment on above: Order Comment: Speci men Type: BLOOD SPECIMENOrdering Facility: [facility] Address: [address] [place], [place] [address] Performed By: #### 5 7021-8 ####[facility] LABCLIA [id number] [place] [address] Monocytes (Bld) [#/Vol] 0.72 10*3/uL <0.87 k/uL [facility] Monocytes (Bld) [#/Vol] 0.72 10*3/uL Normal <0.87 [facility] Comment on above: Order Comment: Speci men Type: BLOOD SPECIMENOrdering Facility: [facility] Address: [address] [place], [place] [address] Performed By: #### 5 7021-8 ####[facility] LABCLIA [id number] [place] [address] Monocytes/100 WBC (Bld) 15.0 % [facility] Monocytes/100 WBC (Bld) 15.0 % Normal [facility] Comment on above: Order Comment: Speci men Type: BLOOD SPECIMENOrdering Facility: [facility] Address: [address] [place] [address] Performed By: #### 5 7021-8 ####[facility] LABCLIA [id number] [place] [address] Neutrophils (Bld) [#/Vol] 2.04 10*3/uL 1.45 - 7.50 k/uL [facility] [facility] Neutrophils (Bld) [#/Vol] 2.04 10*3/uL Normal 1.45-7.50 [facility] Comment on above: Order Comment: Speci men Type: BLOOD SPECIMENOrdering Facility: [facility] Address: [address] [place] [address] Performed By: #### 5 7021-8 ####[facility] LABIA [id number] [place] [address] Neutrophils/100 WBC (Bld) 42.7 % [facility] Neutrophils/100 WBC (Bld) 42.7 % Normal [facility] Comment on above: Order Comment: Speci men Type: BLOOD SPECIMENOrdering Facility: [facility] Address: [address] [place], [place] [address] Performed By: #### 5 7021-8 ####[facility] LABIA [id number] [place] [address] Nucleated RBC (Bld) [#/Vol] <0.01 k/uL [facility] Nucleated RBC (Bld) [#/Vol] 10*3/uL Normal <0.01 [facility] Comment on above: Order Comment: Speci men Type: BLOOD SPECIMENOrdering Facility: [facility] Address: [address] [place] [address] Performed By: #### 5 7021-8 ####[facility] LABIA [id number] [place] [address] Nucleated RBC/100 WBC (Bld) [Ratio] 0.0 /100 WBC [facility] Nucleated RBC/100 WBC (Bld) [Ratio] 0.0 /100 WBC Normal [facility] Comment on above: Order Comment: Speci men Type: BLOOD SPECIMENOrdering Facility: [facility] Address: [address] [id number] Performed By: #### 5 7021-8 ####[facility] LABIA [id number] [place] [address] Platelet mean volume (Bld) [Entitic vol] 10.0 fL 9.0 - 12.7 fL [facility] Platelet mean volume (Bld) [Entitic vol] 10.0 fL Normal 9.0-12.7 [facility] Comment on above: Order Comment: Speci men Type: BLOOD SPECIMENOrdering Facility: [facility] Address: [address] [place] [address] Performed By: #### 5 7021-8 ####[facility] LABIA [id number] [place] [address] Platelets (Bld) [#/Vol] 241 10*3/uL 150 - 400 k/uL [facility] Platelets (Bld) [#/Vol] 241 10*3/uL Normal 150-400 [facility] Comment on above: Order Comment: Speci men Type: BLOOD SPECIMENOrdering Facility: [facility] Address: [address] [place] [address] Performed By: #### 5 7021-8 ####[facility] LABIA [id number] [place] [address] RBC (Bld) [#/Vol] 3.31 10*6/uL Low 4.20 - 6.0 0 m/uL [facility] RBC (Bld) [#/Vol] 3.31 10*6/uL Low 4.20-6.00 [facility] Comment on above: Order Comment: Speci men Type: BLOOD SPECIMENOrdering Facility: [facility] Address: [address] [place] [address] Performed By: #### 5 7021-8 ####[facility] LABCLIA [id number] [place] [address] WBC (Bld) [#/Vol] 4.79 10*3/uL 3.70 - 11.00 k/uL [facility] WBC (Bld) [#/Vol] 4.79 10*3/uL Normal 3.70-11.00 [facility] Comment on above: Order Comment: Speci men Type: BLOOD SPECIMENOrdering Facility: [facility] Address: [address] [place] [address] Performed By: #### 5 7021-8 ####[facility] LABCLIA [id number] [place] [address] CNOVSPon 08-23-2023 CNOVSP Normal [facility] Cancer Ag19-9 SerPl-aCncon 0 08-23-2023 Cancer Ag 19-9 Qn 1509.0 [arb'U]/mL High <36.0 [facility] Comment on above: Order Comment: Speci men Type: BLOOD SPECIMENOrdering Facility: [facility] Address: [address] [place] [address] Result Comment: [facility] er antigen 19-9 test is used as an aid in monitoring response to treatment or recurrence in patients with established pancreatic, hepatobiliary, or gastrointestinal malignancies. Clinical correlation is required.The CA 19-9 Antigen test was performed using the [employer] DXI paramagnetic particle chemiluminescent immunoassay method. Results obtained with different assay methods or kits cannot be used interchangeably. Performed By: #### 2 4108-3 ####[facility] LABCLIA [id number] [place] [address] [place] Comprehensive metabolic 2000 panelon 08-23-2023 Albumin [Mass/Vol] 4.0 g/dL 3.9 - 4.9 g/dL [facility] Albumin [Mass/Vol] 4.0 g/dL Normal 3.9-4.9 [facility] Comment on above: Order Comment: Speci men Type: BLOOD SPECIMENOrdering Facility: [facility] Address: [address] [place], [place] [address] Performed By: #### 2 4323-8 ####[facility] LABCLIA [id number] [place] [address] ALP [Catalytic activity/Vol] 139 U/L High 38 - 113 U/L [facility] ALP [Catalytic activity/Vol] 139 U/L High 38-113 [facility] Comment on above: Order Comment: Speci men Type: BLOOD SPECIMENOrdering Facility: [facility] Address: [address] [place] [address] Performed By: #### 2 4323-8 ####[facility] LABCLIA [id number] [place] [address] ALT [Catalytic activity/Vol] 16 U/L 10 - 54 U/L [facility] ALT [Catalytic activity/Vol] 16 U/L Normal 10-54 [facility] Comment on above: Order Comment: Speci men Type: BLOOD SPECIMENOrdering Facility: [facility] Address: [address] [place] [address] Performed By: #### 2 4323-8 ####[facility] LABIA [id number] [place] [address] Anion gap [Moles/Vol] 9 mmol/L 9 - 18 mmol/L [facility] Anion gap [Moles/Vol] 9 mmol/L Normal 9-18 [facility] Comment on above: Order Comment: Speci men Type: BLOOD SPECIMENOrdering Facility: [facility] Address: [address] [place], [place] [address] Performed By: #### 2 4323-8 ####[facility] LABCLIA [id number] [place] [address] AST [Catalytic activity/Vol] 16 U/L 14 - 40 U/L [facility] AST [Catalytic activity/Vol] 16 U/L Normal 14-40 [facility] Comment on above: Order Comment: Speci men Type: BLOOD SPECIMENOrdering Facility: [facility] Address: [address] [place] [address] Performed By: #### 2 4323-8 ####[facility] LABCLIA [id number] [place] [address] Bilirubin [Mass/Vol] 0.8 mg/dL 0.2 - 1 .3 mg/dL [facility] Bilirubin [Mass/Vol] 0.8 mg/dL Normal 0.2-1.3 [facility] Comment on above: Order Comment: Speci men Type: BLOOD SPECIMENOrdering Facility: [facility] Address: [address] [place] [address] Performed By: #### 2 4323-8 ####[facility] LABCLIA [id number] [place] [address] Calcium [Mass/Vol] 10.7 mg/dL High 8.5 - 10. 2 mg/dL [facility] Calcium [Mass/Vol] 10.7 mg/dL High 8.5-10.2 [facility] Comment on above: Order Comment: Speci men Type: BLOOD SPECIMENOrdering Facility: [facility] Address: [address] [place] [address] Performed By: #### 2 4323-8 ####[facility] LABCLIA [id number] [place] [address] Chloride [Moles/Vol] 105 mmol/L 97 - 10 5 mmol/L [facility] Chloride [Moles/Vol] 105 mmol/L Normal 97-105 [facility] Comment on above: Order Comment: Speci men Type: BLOOD SPECIMENOrdering Facility: [facility] Address: [address] [place] [address] Performed By: #### 2 4323-8 ####[facility] LABCLIA [id number] [place] [address] CO2 [Moles/Vol] 25 mmol/L 22 - 30 mmol/L [facility] CO2 [Moles/Vol] 25 mmol/L Normal 22-30 [facility] Comment on above: Order Comment: Speci men Type: BLOOD SPECIMENOrdering Facility: [facility] Address: [address] [place] [address] Performed By: #### 2 4323-8 ####[facility] LABCLIA [id number] [place] [address] Creatinine [Mass/Vol] 0.83 mg/dL 0.73 - 1.22 mg/dL [facility] Creatinine [Mass/Vol] 0.83 mg/dL Normal 0.73-1.22 [facility] Comment on above: Order Comment: Speci men Type: BLOOD SPECIMENOrdering Facility: [facility] Address: [address] [place] [address] Performed By: #### 2 4323-8 ####[facility] LABIA [id number] [place] [address] Creatinine and Glomerular filtration rate.predicted panel (S/P/Bld) 93 mL/min/1.73m??? Normal >=60 [facility] Comment on above: Order Comment: Speci men Type: BLOOD SPECIMENOrdering Facility: [facility] Address: [address] [place] [address] Result Comment: Kathy mated Glomerular Filtration Rate [...] actual GFR. Performed By: #### 2 4323-8 ####[facility] LABCLIA [id number] [place] [address] Estimated Glomerular Filtration Rate 93 mL/min/1.73m >=60 mL/min/1.73 m [facility] Glucose [Mass/Vol] 142 mg/dL High 74 - 99 mg/dL [facility] Glucose [Mass/Vol] 142 mg/dL High 74-99 [facility] Comment on above: Order Comment: Noemí hoff Type: BLOOD SPECIMENOrdering Facility: [facility] Address: [address] [place], [place] [address] Result Comment: The [place] [employer] (ADA) provides guidance for cutoff [...] Standards of Medical Care in Diabetes 2016, [place] [employer]. Diabetes Care. 2016.39(Suppl 1). Performed By: #### 2 4323-8 ####[facility] LABCLIA [id number] [place] [address] Potassium [Moles/Vol] 4.1 mmol/L 3.7 - 5.1 mmol/L [facility] Potassium [Moles/Vol] 4.1 mmol/L Normal 3.7-5.1 [facility] Comment on above: Order Comment: Speci men Type: BLOOD SPECIMENOrdering Facility: [facility] Address: [address] [place] [address] Performed By: #### 2 4323-8 ####[facility] LABCLIA [id number] [place] [address] Protein [Mass/Vol] 6.9 g/dL 6.3 - 8.0 g/dL [facility] Protein [Mass/Vol] 6.9 g/dL Normal 6.3-8.0 [facility] Comment on above: Order Comment: Speci men Type: BLOOD SPECIMENOrdering Facility: [facility] Address: [address] [place] [address] Performed By: #### 2 4323-8 ####[facility]QU[facility] LABCLIA [id number] [place] [address] Sodium [Moles/Vol] 139 mmol/L 136 - 144 mmol/L [facility] Sodium [Moles/Vol] 139 mmol/L Normal 136-144 [facility] Comment on above: Order Comment: Speci men Type: BLOOD SPECIMENOrdering Facility: [facility] Address: [address] [place] [address] Performed By: #### 2 4323-8 ####[facility] LABCLIA [id number] [place] [address] Urea nitrogen [Mass/Vol] 19 mg/dL 9 - 24 mg/dL [facility] Urea nitrogen [Mass/Vol] 19 mg/dL Normal 9-24 [facility] Comment on above: Order Comment: Speci men Type: BLOOD SPECIMENOrdering Facility: [facility] Address: [address] [place] [address] Performed By: #### 2 4323-8 ####[facility] LABCLIA [id number] [place] [address] CNPNon 08-18-2023 CNPN Normal [facility] CT ABD/PEL W IVCONon 024 CT ABD/PEL W IVCON Normal [facility] CT CHEST W IVCONon 4 CT CHEST W IVCON Normal [facility] CNPNon 08-09-2023 CNPN Normal [facility] CBC W Auto Differential pane l (Bld)on 08-02-2023 Basophils (Bld) [#/Vol] <0.11 k/uL [facility] Basophils (Bld) [#/Vol] 10*3/uL Normal <0.11 [facility] Comment on above: Order Comment: Speci men Type: BLOOD SPECIMENOrdering Facility: [facility] Address: [address] [place] [address] Performed By: #### 5 7021-8 ####[facility] LABCLIA [id number] [place] [address] Basophils/100 WBC (Bld) 0.4 % [facility] Basophils/100 WBC (Bld) 0.4 % Normal [facility] Comment on above: Order Comment: Speci men Type: BLOOD SPECIMENOrdering Facility: [facility] Address: [address] [place] [address] Performed By: #### 5 7021-8 ####[facility] LABCLIA [id number] [place] [address] Differential cell count method Nom (Bld) Auto [facility] Differential cell count method Nom (Bld) Auto Normal [facility] Comment on above: Order Comment: Speci men Type: BLOOD SPECIMENOrdering Facility: [facility] Address: [address] [place] [address] Performed By: #### 5 7021-8 ####[facility] LABCLIA [id number] [place] [address] Eosinophils (Bld) [#/Vol] 0.07 10*3/uL <0.46 k/uL [facility] Eosinophils (Bld) [#/Vol] 0.07 10*3/uL Normal <0.46 [facility] Comment on above: Order Comment: Speci men Type: BLOOD SPECIMENOrdering Facility: [facility] Address: [address] [place] [address] Performed By: #### 5 7021-8 ####[facility] LABCLIA [id number] [place] [address] Eosinophils/100 WBC (Bld) 1.3 % [facility] Eosinophils/100 WBC (Bld) 1.3 % Normal [facility] Comment on above: Order Comment: Speci men Type: BLOOD SPECIMENOrdering Facility: [facility] Address: [address] [place] [address] Performed By: #### 5 7021-8 ####[facility] LABCLIA [id number] [place] [address] Erythrocyte distribution width (RBC) [Ratio] 17.4 % High 11.5 - 15.0 % [facility] Erythrocyte distribution width (RBC) [Ratio] 17.4 % High 11.5-15.0 [facility] Comment on above: Order Comment: Speci men Type: BLOOD SPECIMENOrdering Facility: [facility] Address: [address] [place] [address] Performed By: #### 5 7021-8 ####[facility] LABIA [id number] [place] [address] Hematocrit (Bld) [Volume fraction] 31.6 % Low 39.0 - 51.0 % [facility] Hematocrit (Bld) [Volume fraction] 31.6 % Low 39.0-51.0 [facility] Comment on above: Order Comment: Speci men Type: BLOOD SPECIMENOrdering Facility: [facility] Address: [address] [place] [address] Performed By: #### 5 7021-8 ####[facility] LABIA [id number] [place] [address] Hemoglobin (Bld) [Mass/Vol] 10.3 g/dL Low 13.0 - 17.0 g/dL [facility] Hemoglobin (Bld) [Mass/Vol] 10.3 g/dL Low 13.0-17.0 [facility] Comment on above: Order Comment: Speci men Type: BLOOD SPECIMENOrdering Facility: [facility] Address: [address] [place] [address] Performed By: #### 5 7021-8 ####[facility] LABIA [id number] [place] [address] Immature granulocytes (Bld) [#/Vol] <0.10 k/uL [facility] Immature granulocytes (Bld) [#/Vol] 10*3/uL Normal <0.10 [facility] Comment on above: Order Comment: Speci men Type: BLOOD SPECIMENOrdering Facility: [facility] Address: [address] [place] [address] [place] [address] Performed By: #### 5 7021-8 ####[facility] LABCLIA [id number] [place] [address] Immature granulocytes/100 WBC (Bld) 0.4 % [facility] Immature granulocytes/100 WBC (Bld) 0.4 % Normal [facility] Comment on above: Order Comment: Speci men Type: BLOOD SPECIMENOrdering Facility: [facility] Address: [address] [place] [address] Performed By: #### 5 7021-8 ####[facility] LABCLIA [id number] [place] [address] Lymphocytes (Bld) [#/Vol] 1.29 10*3/uL 1.00 - 4.00 k/uL [facility] Lymphocytes (Bld) [#/Vol] 1.29 10*3/uL Normal 1.00-4.00 [facility] Comment on above: Order Comment: Speci men Type: BLOOD SPECIMENOrdering Facility: [facility] Address: [address] [place] [address] Performed By: #### 5 7021-8 ####[facility] LABIA [id number] [place] [address] Lymphocytes/100 WBC (Bld) 24.0 % [facility] Lymphocytes/100 WBC (Bld) 24.0 % Normal [facility] Comment on above: Order Comment: Speci men Type: BLOOD SPECIMENOrdering Facility: [facility] Address: [address] [place] [address] Performed By: #### 5 7021-8 ####[facility] LABIA [id number] [place] [address] MCH (RBC) [Entitic mass] 34.0 pg 26.0 - 34.0 pg [facility] MCH (RBC) [Entitic mass] 34.0 pg Normal 26.0-34.0 [facility] Comment on above: Order Comment: Speci men Type: BLOOD SPECIMENOrdering Facility: [facility] Address: [address] [place] [address] Performed By: #### 5 7021-8 ####[facility] LABCLIA [id number] [place] [address] MCHC (RBC) [Mass/Vol] 32.6 g/dL 30.5 - 36.0 g/dL [facility] MCHC (RBC) [Mass/Vol] 32.6 g/dL Normal 30.5-36.0 [facility] Comment on above: Order Comment: Speci men Type: BLOOD SPECIMENOrdering Facility: [facility] Address: [address] [place] [address] Performed By: #### 5 7021-8 ####[facility] LABCLIA [id number] [place] [address] MCV (RBC) [Entitic vol] 104.3 fL High 80.0 - 100.0 fL [facility] MCV (RBC) [Entitic vol] 104.3 fL High 80.0-100.0 [facility] Comment on above: Order Comment: Speci men Type: BLOOD SPECIMENOrdering Facility: [facility] Address: [address] [place] [address] Performed By: #### 5 7021-8 ####[facility] LABCLIA [id number] [place] [address] Monocytes (Bld) [#/Vol] 0.48 10*3/uL <0.87 k/uL [facility] Monocytes (Bld) [#/Vol] 0.48 10*3/uL Normal <0.87 [facility] Comment on above: Order Comment: Speci men Type: BLOOD SPECIMENOrdering Facility: [facility] Address: [address] [place], [place] [address] Performed By: #### 5 7021-8 ####[facility] LABCLIA [id number] [place] [address] Monocytes/100 WBC (Bld) 8.9 % [facility] Monocytes/100 WBC (Bld) 8.9 % Normal [facility] Comment on above: Order Comment: Speci men Type: BLOOD SPECIMENOrdering Facility: [facility] Address: [address] [place] [address] Performed By: #### 5 7021-8 ####[facility] LABCLIA [id number] [place] [address] Neutrophils (Bld) [#/Vol] 3.50 10*3/uL 1.45 - 7.50 k/uL [facility] Neutrophils (Bld) [#/Vol] 3.50 10*3/uL Normal 1.45-7.50 [facility] Comment on above: Order Comment: Speci men Type: BLOOD SPECIMENOrdering Facility: [facility] Address: [address] [place] [address] Performed By: #### 5 7021-8 ####[facility] LABIA [id number] [place] [address] Neutrophils/100 WBC (Bld) 65.0 % [facility] Neutrophils/100 WBC (Bld) 65.0 % Normal [facility] Comment on above: Order Comment: Speci men Type: BLOOD SPECIMENOrdering Facility: [facility] Address: [address] [place] [address] Performed By: #### 5 7021-8 ####[facility] LABIA [id number] [place] [address] Nucleated RBC (Bld) [#/Vol] <0.01 k/uL [facility] Nucleated RBC (Bld) [#/Vol] 10*3/uL Normal <0.01 [facility] Comment on above: Order Comment: Speci men Type: BLOOD SPECIMENOrdering Facility: [facility] Address: [address] [place] [address] Performed By: #### 5 7021-8 ####[facility] LABIA [id number] [place] [address] Nucleated RBC/100 WBC (Bld) [Ratio] 0.0 /100 WBC [facility] Nucleated RBC/100 WBC (Bld) [Ratio] 0.0 /100 WBC Normal [facility] Comment on above: Order Comment: Speci men Type: BLOOD SPECIMENOrdering Facility: [facility] Address: [address] [place] [address] Performed By: #### 5 7021-8 ####[facility] LABIA [id number] [place] [address] Platelet mean volume (Bld) [Entitic vol] 9.2 fL 9.0 - 12.7 fL [facility] Platelet mean volume (Bld) [Entitic vol] 9.2 fL Normal 9.0-12.7 [facility] Comment on above: Order Comment: Speci men Type: BLOOD SPECIMENOrdering Facility: [facility] Address: [address] [place] [address] Performed By: #### 5 7021-8 ####[facility] LABIA [id number] [place] [address] Platelets (Bld) [#/Vol] 224 10*3/uL 150 - 400 k/uL [facility] Platelets (Bld) [#/Vol] 224 10*3/uL Normal 150-400 [facility] Comment on above: Order Comment: Speci men Type: BLOOD SPECIMENOrdering Facility: [facility] Address: [address] [place] [address] Performed By: #### 5 7021-8 ####[facility] LABIA [id number] [place] [address] RBC (Bld) [#/Vol] 3.03 10*6/uL Low 4.20 - 6.0 0 m/uL [facility] RBC (Bld) [#/Vol] 3.03 10*6/uL Low 4.20-6.00 [facility] Comment on above: Order Comment: Speci men Type: BLOOD SPECIMENOrdering Facility: [facility] Address: [address] [place] [address] Performed By: #### 5 7021-8 ####[facility] LABCLIA [id number] [place] [address] WBC (Bld) [#/Vol] 5.38 10*3/uL 3.70 - 11.00 k/uL [facility] WBC (Bld) [#/Vol] 5.38 10*3/uL Normal 3.70-11.00 [facility] Comment on above: Order Comment: Speci men Type: BLOOD SPECIMENOrdering Facility: [facility] Address: [address] [place] [address] Performed By: #### 5 7021-8 ####[facility] LABCLIA [id number] [place] [address] CNOVSPon 08-02-2023 CNOVSP Normal [facility] Cancer Ag19-9 SerPl-aCncon 0 08-02-2023 Cancer Ag 19-9 Qn 1844.0 [arb'U]/mL High <36.0 [facility] Comment on above: Order Comment: Speci men Type: BLOOD SPECIMENOrdering Facility: [facility] Address: [address] [place] [address] Result Comment: [facility] er antigen 19-9 test is used as an aid in monitoring response to treatment or recurrence in patients with established pancreatic, hepatobiliary, or gastrointestinal malignancies. Clinical correlation is required.The CA 19-9 Antigen test was performed using the [employer] DXI paramagnetic particle chemiluminescent immunoassay method. Results obtained with different assay methods or kits cannot be used interchangeably. Performed By: #### 2 4108-3 ####[facility] LABCLIA [id number] [place] [address] [place] Comprehensive metabolic 2000 panelon 08-02-2023 Albumin [Mass/Vol] 3.9 g/dL 3.9 - 4.9 g/dL [facility] Albumin [Mass/Vol] 3.9 g/dL Normal 3.9-4.9 [facility] Comment on above: Order Comment: Speci men Type: BLOOD SPECIMENOrdering Facility: [facility] Address: [address] [place] [address] Performed By: #### 2 4323-8 ####[facility] LABCLIA [id number] [place] [address] ALP [Catalytic activity/Vol] 137 U/L High 38 - 113 U/L [facility] ALP [Catalytic activity/Vol] 137 U/L High 38-113 [facility] Comment on above: Order Comment: Speci men Type: BLOOD SPECIMENOrdering Facility: [facility] Address: [address] [place] [address] Performed By: #### 2 4323-8 ####[facility] LABCLIA [id number] [place] [address] ALT [Catalytic activity/Vol] 12 U/L 10 - 54 U/L [facility] ALT [Catalytic activity/Vol] 12 U/L Normal 10-54 [facility] Comment on above: Order Comment: Speci men Type: BLOOD SPECIMENOrdering Facility: [facility] Address: [address] [place] [address] Performed By: #### 2 4323-8 ####[facility] LABCL[facility] [id number] [place] [address] Anion gap [Moles/Vol] 10 mmol/L 9 - 18 mmol/L [facility] Anion gap [Moles/Vol] 10 mmol/L Normal 9-18 [facility] Comment on above: Order Comment: Speci men Type: BLOOD SPECIMENOrdering Facility: [facility] Address: [address] [place], [place] [address] Performed By: #### 2 4323-8 ####[facility] LABCLIA [id number] [place] [address] AST [Catalytic activity/Vol] 13 U/L Low 14 - 40 U/L [facility] AST [Catalytic activity/Vol] 13 U/L Low 14-40 [facility] Comment on above: Order Comment: Speci men Type: BLOOD SPECIMENOrdering Facility: [facility] Address: [address] [place], [place] [address] Performed By: #### 2 4323-8 ####[facility] LABCLIA [id number] [place] [address] Bilirubin [Mass/Vol] 1.0 mg/dL 0.2 - 1 .3 mg/dL [facility] Bilirubin [Mass/Vol] 1.0 mg/dL Normal 0.2-1.3 [facility] Comment on above: Order Comment: Speci men Type: BLOOD SPECIMENOrdering Facility: [facility] Address: [address] [place] [address] Performed By: #### 2 4323-8 ####[facility] LABCLIA [id number] [place] [address] Calcium [Mass/Vol] 10.4 mg/dL High 8.5 - 10. 2 mg/dL [facility] Calcium [Mass/Vol] 10.4 mg/dL High 8.5-10.2 [facility] Comment on above: Order Comment: Speci men Type: BLOOD SPECIMENOrdering Facility: [facility] Address: [address] [place] [address] Performed By: #### 2 4323-8 ####[facility] LABCLIA [id number] [place] [address] Chloride [Moles/Vol] 105 mmol/L 97 - 10 5 mmol/L [facility] Chloride [Moles/Vol] 105 mmol/L Normal 97-105 [facility] Comment on above: Order Comment: Speci men Type: BLOOD SPECIMENOrdering Facility: [facility] Address: [address] [place] [address] Performed By: #### 2 4323-8 ####[facility] LABCLIA [id number] [place] [address] CO2 [Moles/Vol] 24 mmol/L 22 - 30 mmol/L [facility] CO2 [Moles/Vol] 24 mmol/L Normal 22-30 [facility] Comment on above: Order Comment: Speci men Type: BLOOD SPECIMENOrdering Facility: [facility] Address: [address] [place] [address] Performed By: #### 2 4323-8 ####[facility] LABCLIA [id number] [place] [address] Creatinine [Mass/Vol] 0.86 mg/dL 0.73 - 1.22 mg/dL [facility] Creatinine [Mass/Vol] 0.86 mg/dL Normal 0.73-1.22 [facility] Comment on above: Order Comment: Speci men Type: BLOOD SPECIMENOrdering Facility: [facility] Address: [address] [place], [place] [address] Performed By: #### 2 4323-8 ####[facility] LABCLIA [id number] [place] [address] Creatinine and Glomerular filtration rate.predicted panel (S/P/Bld) 92 mL/min/1.73m??? Normal >=60 [facility] Comment on above: Order Comment: Speci men Type: BLOOD SPECIMENOrdering Facility: [facility] Address: [address] [place], [place] [phone] Result Comment: Kathy mated Glomerular Filtration Rate [...] actual GFR. Performed By: #### 2 4323-8 ####[facility] LABCLIA [id number] [place] [address] Estimated Glomerular Filtration Rate 92 mL/min/1.73m >=60 mL/min/1.73 m [facility] Glucose [Mass/Vol] 149 mg/dL High 74 - 99 mg/dL [facility] Glucose [Mass/Vol] 149 mg/dL High 74-99 [facility] Comment on above: Order Comment: Speci men Type: BLOOD SPECIMENOrdering Facility: [facility] Address: [address] [id number] Result Comment: The [place] [employer] (ADA) provides guidance for cutoff [...] Standards of Medical Care in Diabetes 2016, [place] [employer]. Diabetes Care. 2016.39(Suppl 1). Performed By: #### 2 4323-8 ####[facility] LABCLIA [id number] [place] [address] Potassium [Moles/Vol] 4.0 mmol/L 3.7 - 5.1 mmol/L [facility] Potassium [Moles/Vol] 4.0 mmol/L Normal 3.7-5.1 [facility] Comment on above: Order Comment: Speci men Type: BLOOD SPECIMENOrdering Facility: [facility] Address: [address] [id number] Performed By: #### 2 4323-8 ####[facility] LABCLIA [id number] [place] [address] Protein [Mass/Vol] 6.5 g/dL 6.3 - 8.0 g/dL [facility] Protein [Mass/Vol] 6.5 g/dL Normal 6.3-8.0 [facility] Comment on above: Order Comment: Speci men Type: BLOOD SPECIMENOrdering Facility: [facility] Address: [address] [id number] Performed By: #### 2 4323-8 ####[facility] LABCLIA [id number] [place] [address] Sodium [Moles/Vol] 139 mmol/L 136 - 144 mmol/L [facility] Sodium [Moles/Vol] 139 mmol/L Normal 136-144 [facility] Comment on above: Order Comment: Speci men Type: BLOOD SPECIMENOrdering Facility: [facility] Address: [address] [place] [address] Performed By: #### 2 4323-8 ####[facility] LABCLIA [id number] [place] [address] Urea nitrogen [Mass/Vol] 20 mg/dL 9 - 24 mg/dL [facility] Urea nitrogen [Mass/Vol] 20 mg/dL Normal 9-24 [facility] Comment on above: Order Comment: Speci men Type: BLOOD SPECIMENOrdering Facility: [facility] Address: [address] [place] [address] Performed By: #### 2 4323-8 ####[facility] LABCLIA [id number] [place] [address] CBC W Auto Differential pane l (Bld)on 07-19-2023 Basophils (Bld) [#/Vol] 0.04 10*3/uL <0.11 k/uL [facility] Basophils (Bld) [#/Vol] 0.04 10*3/uL Normal <0.11 [facility] Comment on above: Order Comment: Speci men Type: BLOOD SPECIMENOrdering Facility: [facility] Address: [address] [place] [address] Performed By: #### 5 7021-8 ####[facility] LABCLIA [id number] [place] [address] Basophils/100 WBC (Bld) 0.7 % [facility] Basophils/100 WBC (Bld) 0.7 % Normal [facility] Comment on above: Order Comment: Speci men Type: BLOOD SPECIMENOrdering Facility: [facility] Address: [address] [place] [address] Performed By: #### 5 7021-8 ####[facility] LABCLIA [id number] [place] [address] Differential cell count method Nom (Bld) Auto [facility] Differential cell count method Nom (Bld) Auto Normal [facility] Comment on above: Order Comment: Speci men Type: BLOOD SPECIMENOrdering Facility: [facility] Address: [address] [place] [address] Performed By: #### 5 7021-8 ####[facility] LABCLIA [id number] [place] [address] Eosinophils (Bld) [#/Vol] 0.09 10*3/uL <0.46 k/uL [facility] Eosinophils (Bld) [#/Vol] 0.09 10*3/uL Normal <0.46 [facility] Comment on above: Order Comment: Speci men Type: BLOOD SPECIMENOrdering Facility: [facility] Address: [address] [place] [address] Performed By: #### 5 7021-8 ####[facility] LABCLIA [id number] [address] [id number] Eosinophils/100 WBC (Bld) 1.5 % [facility] Eosinophils/100 WBC (Bld) 1.5 % Normal [facility] Comment on above: Order Comment: Speci men Type: BLOOD SPECIMENOrdering Facility: [facility] Address: [address] [place] [address] Performed By: #### 5 7021-8 ####[facility] LABCLIA [id number] [place] [address] Erythrocyte distribution width (RBC) [Ratio] 17.9 % High 11.5 - 15.0 % [facility] Erythrocyte distribution width (RBC) [Ratio] 17.9 % High 11.5-15.0 [facility] Comment on above: Order Comment: Speci men Type: BLOOD SPECIMENOrdering Facility: [facility] Address: [address] [place] [address] Performed By: #### 5 7021-8 ####[facility] LABCLIA [id number] [place] [address] Hematocrit (Bld) [Volume fraction] 32.0 % Low 39.0 - 51.0 % [facility] Hematocrit (Bld) [Volume fraction] 32.0 % Low 39.0-51.0 [facility] Comment on above: Order Comment: Speci men Type: BLOOD SPECIMENOrdering Facility: [facility] Address: [address] [place] [address] Performed By: #### 5 7021-8 ####[facility] LABCLIA [id number] [place] [address] Hemoglobin (Bld) [Mass/Vol] 10.5 g/dL Low 13.0 - 17.0 g/dL [facility] Hemoglobin (Bld) [Mass/Vol] 10.5 g/dL Low 13.0-17.0 [facility] Comment on above: Order Comment: Speci men Type: BLOOD SPECIMENOrdering Facility: [facility] Address: [address] [place] [address] Performed By: #### 5 7021-8 ####[facility] LABCLIA [id number] [place] [address] Immature granulocytes (Bld) [#/Vol] 0.03 10*3/uL <0.10 k/uL [facility] Immature granulocytes (Bld) [#/Vol] 0.03 10*3/uL Normal <0.10 [facility] Comment on above: Order Comment: Speci men Type: BLOOD SPECIMENOrdering Facility: [facility] Address: [address] [place] [address] Performed By: #### 5 7021-8 ####[facility] LABCLIA [id number] [place] [address] Immature granulocytes/100 WBC (Bld) 0.5 % [facility] Immature granulocytes/100 WBC (Bld) 0.5 % Normal [facility] Comment on above: Order Comment: Speci men Type: BLOOD SPECIMENOrdering Facility: [facility] Address: [address] [place] [address] Performed By: #### 5 7021-8 ####[facility] LABCLIA [id number] [place] [address] Lymphocytes (Bld) [#/Vol] 1.44 10*3/uL 1.00 - 4.00 k/uL [facility] Lymphocytes (Bld) [#/Vol] 1.44 10*3/uL Normal 1.00-4.00 [facility] Comment on above: Order Comment: Speci men Type: BLOOD SPECIMENOrdering Facility: [facility] Address: [address] [place] [address] Performed By: #### 5 7021-8 ####[facility] LABCLIA [id number] [place] [address] Lymphocytes/100 WBC (Bld) 24.2 % [facility] Lymphocytes/100 WBC (Bld) 24.2 % Normal [facility] Comment on above: Order Comment: Speci men Type: BLOOD SPECIMENOrdering Facility: [facility] Address: [address] [place] [address] Performed By: #### 5 7021-8 ####[facility] LABCLIA [id number] [place] [address] MCH (RBC) [Entitic mass] 33.9 pg 26.0 - 34.0 pg [facility] MCH (RBC) [Entitic mass] 33.9 pg Normal 26.0-34.0 [facility] Comment on above: Order Comment: Speci men Type: BLOOD SPECIMENOrdering Facility: [facility] Address: [address] [place] [address] Performed By: #### 5 7021-8 ####[facility] LABIA [id number] [place] [address] MCHC (RBC) [Mass/Vol] 32.8 g/dL 30.5 - 36.0 g/dL [facility] MCHC (RBC) [Mass/Vol] 32.8 g/dL Normal 30.5-36.0 [facility] Comment on above: Order Comment: Speci men Type: BLOOD SPECIMENOrdering Facility: [facility] Address: [address] [place] [address] Performed By: #### 5 7021-8 ####[facility] LABCLIA [id number] [place] [address] MCV (RBC) [Entitic vol] 103.2 fL High 80.0 - 100.0 fL [facility] MCV (RBC) [Entitic vol] 103.2 fL High 80.0-100.0 [facility] Comment on above: Order Comment: Speci men Type: BLOOD SPECIMENOrdering Facility: [facility] Address: [address] [place] [address] Performed By: #### 5 7021-8 ####[facility] LABCLIA [id number] [place] [address] Monocytes (Bld) [#/Vol] 0.46 10*3/uL <0.87 k/uL [facility] Monocytes (Bld) [#/Vol] 0.46 10*3/uL Normal <0.87 [facility] Comment on above: Order Comment: Speci men Type: BLOOD SPECIMENOrdering Facility: [facility] Address: [address] [place] [address] Performed By: #### 5 7021-8 ####[facility] LABCLIA [id number] [place] [address] Monocytes/100 WBC (Bld) 7.7 % [facility] Monocytes/100 WBC (Bld) 7.7 % Normal [facility] Comment on above: Order Comment: Speci men Type: BLOOD SPECIMENOrdering Facility: [facility] Address: [address] [place] [address] Performed By: #### 5 7021-8 ####[facility] LABCLIA [id number] [place] [address] Neutrophils (Bld) [#/Vol] 3.90 10*3/uL 1.45 - 7.50 k/uL [facility] Neutrophils (Bld) [#/Vol] 3.90 10*3/uL Normal 1.45-7.50 [facility] Comment on above: Order Comment: Speci men Type: BLOOD SPECIMENOrdering Facility: [facility] Address: [address] [place] [address] Performed By: #### 5 7021-8 ####[facility] LABCLIA [id number] [place] [address] Neutrophils/100 WBC (Bld) 65.4 % [facility] Neutrophils/100 WBC (Bld) 65.4 % Normal [facility] Comment on above: Order Comment: Speci men Type: BLOOD SPECIMENOrdering Facility: [facility] Address: [address] [place] [address] Performed By: #### 5 7021-8 ####[facility] LABCLIA [id number] [place] [address] Nucleated RBC (Bld) [#/Vol] <0.01 k/uL [facility] Nucleated RBC (Bld) [#/Vol] 10*3/uL Normal <0.01 [facility] Comment on above: Order Comment: Speci men Type: BLOOD SPECIMENOrdering Facility: [facility] Address: [address] [place] [address] Performed By: #### 5 7021-8 ####[facility] LABIA [id number] [place] [address] Nucleated RBC/100 WBC (Bld) [Ratio] 0.0 /100 WBC [facility] Nucleated RBC/100 WBC (Bld) [Ratio] 0.0 /100 WBC Normal [facility] Comment on above: Order Comment: Speci men Type: BLOOD SPECIMENOrdering Facility: [facility] Address: [address] [place] [address] Performed By: #### 5 7021-8 ####[facility] LABCLIA [id number] [place] [address] Platelet mean volume (Bld) [Entitic vol] 9.5 fL 9.0 - 12.7 fL [facility] Platelet mean volume (Bld) [Entitic vol] 9.5 fL Normal 9.0-12.7 [facility] Comment on above: Order Comment: Speci men Type: BLOOD SPECIMENOrdering Facility: [facility] Address: [address] [place], [place] [address] Performed By: #### 5 7021-8 ####[facility] LABCLIA [id number] [place] [address] Platelets (Bld) [#/Vol] 231 10*3/uL 150 - 400 k/uL [facility] Platelets (Bld) [#/Vol] 231 10*3/uL Normal 150-400 [facility] Comment on above: Order Comment: Speci men Type: BLOOD SPECIMENOrdering Facility: [facility] Address: [address] [place] [address] Performed By: #### 5 7021-8 ####[facility] LABCLIA [id number] [place] [address] RBC (Bld) [#/Vol] 3.10 10*6/uL Low 4.20 - 6.0 0 m/uL [facility] RBC (Bld) [#/Vol] 3.10 10*6/uL Low 4.20-6.00 [facility] Comment on above: Order Comment: Speci men Type: BLOOD SPECIMENOrdering Facility: [facility] Address: [address] [place] [address] Performed By: #### 5 7021-8 ####[facility] LABCLIA [id number] [place] [address] WBC (Bld) [#/Vol] 5.96 10*3/uL 3.70 - 11.00 k/uL [facility] WBC (Bld) [#/Vol] 5.96 10*3/uL Normal 3.70-11.00 [facility] Comment on above: Order Comment: Speci men Type: BLOOD SPECIMENOrdering Facility: [facility] Address: [address] [place] [address] Performed By: #### 5 7021-8 ####[facility] LABCLIA [id number] [place] [address] CNCNPATEDon 07-19-2023 CNCNPATED Normal [facility] CNOVSPon 07-19-2023 CNOVSP Normal [facility] Comprehensive metabolic 2000 panelon 07-19-2023 Albumin [Mass/Vol] 3.8 g/dL Low 3.9 - 4.9 g/dL [facility] Albumin [Mass/Vol] 3.8 g/dL Low 3.9-4.9 [facility] Comment on above: Order Comment: Speci men Type: BLOOD SPECIMENOrdering Facility: [facility] Address: [address] [place] [address] Performed By: #### 2 4323-8 ####[facility] LABCLIA [id number] [place] [address] ALP [Catalytic activity/Vol] 136 U/L High 38 - 113 U/L [facility] ALP [Catalytic activity/Vol] 136 U/L High 38-113 [facility] Comment on above: Order Comment: Speci men Type: BLOOD SPECIMENOrdering Facility: [facility] Address: [address] [place] [address] Performed By: #### 2 4323-8 ####[facility] LABCLIA [id number] [place] [address] ALT [Catalytic activity/Vol] 29 U/L 10 - 54 U/L [facility] ALT [Catalytic activity/Vol] 29 U/L Normal 10-54 [facility] Comment on above: Order Comment: Speci men Type: BLOOD SPECIMENOrdering Facility: [facility] Address: [address] [place] [address] Performed By: #### 2 4323-8 ####[facility] LABCLIA [id number] [place] [address] Anion gap [Moles/Vol] 11 mmol/L 9 - 18 mmol/L [facility] Anion gap [Moles/Vol] 11 mmol/L Normal 9-18 [facility] Comment on above: Order Comment: Speci men Type: BLOOD SPECIMENOrdering Facility: [facility] Address: [address] [place] [address] Performed By: #### 2 4323-8 ####ESEQUIEL [facility] LABCLIA [id number] [place] [address] AST [Catalytic activity/Vol] 24 U/L 14 - 40 U/L [facility] AST [Catalytic activity/Vol] 24 U/L Normal 14-40 [facility] Comment on above: Order Comment: Speci men Type: BLOOD SPECIMENOrdering Facility: [facility] Address: [address] [place] [address] Performed By: #### 2 4323-8 ####[facility] LABCLIA [id number] [place] [address] Bilirubin [Mass/Vol] 1.2 mg/dL 0.2 - 1 .3 mg/dL [facility] Bilirubin [Mass/Vol] 1.2 mg/dL Normal 0.2-1.3 [facility] Comment on above: Order Comment: Speci men Type: BLOOD SPECIMENOrdering Facility: [facility] Address: [address] [place] [address] Performed By: #### 2 4323-8 ####[facility] LABCLIA [id number] [place] [address] Calcium [Mass/Vol] 10.7 mg/dL High 8.5 - 10. 2 mg/dL [facility] Calcium [Mass/Vol] 10.7 mg/dL High 8.5-10.2 [facility] Comment on above: Order Comment: Speci men Type: BLOOD SPECIMENOrdering Facility: [facility] Address: [address] [place] [address] Performed By: #### 2 4323-8 ####[facility] LABCLIA [id number] [place] [address] Chloride [Moles/Vol] 106 mmol/L High 97 - 10 5 mmol/L [facility] Chloride [Moles/Vol] 106 mmol/L High 97-105 [facility] Comment on above: Order Comment: Speci men Type: BLOOD SPECIMENOrdering Facility: [facility] Address: [address] [place] [address] Performed By: #### 2 4323-8 ####[facility] LABIA [id number] [place] [address] CO2 [Moles/Vol] 22 mmol/L 22 - 30 mmol/L [facility] CO2 [Moles/Vol] 22 mmol/L Normal 22-30 [facility] Comment on above: Order Comment: Speci men Type: BLOOD SPECIMENOrdering Facility: [facility] Address: [address] [place] [address] Performed By: #### 2 4323-8 ####[facility] LABIA [id number] [place] [id number] Creatinine [Mass/Vol] 0.83 mg/dL 0.73 - 1.22 mg/dL [facility] Creatinine [Mass/Vol] 0.83 mg/dL Normal 0.73-1.22 [facility] Comment on above: Order Comment: Speci men Type: BLOOD SPECIMENOrdering Facility: [facility] Address: [address] [place] [address] Performed By: #### 2 4323-8 ####[facility] LABIA [id number] [place] [address] Creatinine and Glomerular filtration rate.predicted panel (S/P/Bld) 93 mL/min/1.73m??? Normal >=60 [facility] Comment on above: Order Comment: Speci men Type: BLOOD SPECIMENOrdering Facility: [facility] Address: [address] [place] [address] Result Comment: Kathy mated Glomerular Filtration Rate [...] actual GFR. Performed By: #### 2 4323-8 ####[facility] LABCLIA [id number] [place] [address] Estimated Glomerular Filtration Rate 93 mL/min/1.73m >=60 mL/min/1.73 m [facility] Glucose [Mass/Vol] 152 mg/dL High 74 - 99 mg/dL [facility] Glucose [Mass/Vol] 152 mg/dL High 74-99 [facility] Comment on above: Order Comment: Rajanii men Type: BLOOD SPECIMENOrdering Facility: [facility] Address: [address] [place] [address] Result Comment: The [place] [employer] (ADA) provides guidance for cutoff [...] Standards of Medical Care in Diabetes 2016, [place] [employer]. Diabetes Care. 2016.39(Suppl 1). Performed By: #### 2 4323-8 ####[facility] LABCLIA [id number] [place] [address] Potassium [Moles/Vol] 3.7 mmol/L 3.7 - 5.1 mmol/L [facility] Potassium [Moles/Vol] 3.7 mmol/L Normal 3.7-5.1 [facility] Comment on above: Order Comment: Noemí hoff Type: BLOOD SPECIMENOrdering Facility: [facility] Address: [address] [place] [address] Performed By: #### 2 4323-8 ####[facility] LABCLIA [id number] [place] [address] Protein [Mass/Vol] 6.3 g/dL 6.3 - 8.0 g/dL [facility] Protein [Mass/Vol] 6.3 g/dL Normal 6.3-8.0 [facility] Comment on above: Order Comment: Speci men Type: BLOOD SPECIMENOrdering Facility: [facility] Address: [address] [place] [address] Performed By: #### 2 4323-8 ####[facility] LABCLIA [id number] [place] [address] Sodium [Moles/Vol] 139 mmol/L 136 - 144 mmol/L [facility] Sodium [Moles/Vol] 139 mmol/L Normal 136-144 [facility] Comment on above: Order Comment: Speci men Type: BLOOD SPECIMENOrdering Facility: [facility] Address: [address] [place], [place] [address] Performed By: #### 2 4323-8 ####[facility] LABIA [id number] [place] [address] Urea nitrogen [Mass/Vol] 14 mg/dL 9 - 24 mg/dL [facility] Urea nitrogen [Mass/Vol] 14 mg/dL Normal 9-24 [facility] Comment on above: Order Comment: Speci men Type: BLOOD SPECIMENOrdering Facility: [facility] Address: [address] [place] [address] Performed By: #### 2 4323-8 ####[facility] LABCLIA [id number] [place] [address] CBC W Auto Differential pane l (Bld)on 07-05-2023 Basophils (Bld) [#/Vol] 0.04 10*3/uL <0.11 k/uL [facility] Basophils (Bld) [#/Vol] 0.04 10*3/uL Normal <0.11 [facility] Comment on above: Order Comment: Speci men Type: BLOOD SPECIMENOrdering Facility: [facility] Address: [address] [place] [address] Performed By: #### 5 7021-8 ####[facility] LABCLIA [id number] [place] [address] Basophils/100 WBC (Bld) 0.7 % Normal [facility] Comment on above: Order Comment: Speci men Type: BLOOD SPECIMENOrdering Facility: [facility] Address: [address] [place] [address] Performed By: #### 5 7021-8 ####[facility] LABCLIA [id number] [place] [address] Differential cell count method Nom (Bld) Auto [facility] Differential cell count method Nom (Bld) Auto Normal [facility] Comment on above: Order Comment: Speci men Type: BLOOD SPECIMENOrdering Facility: [facility] Address: [address] [place] [address] Performed By: #### 5 7021-8 ####[facility] LABCLIA [id number] [place] [address] Eosinophils (Bld) [#/Vol] 0.12 10*3/uL <0.46 k/uL [facility] Eosinophils (Bld) [#/Vol] 0.12 10*3/uL Normal <0.46 [facility] Comment on above: Order Comment: Speci men Type: BLOOD SPECIMENOrdering Facility: [facility] Address: [address] [place] [address] Performed By: #### 5 7021-8 ####[facility] LABCLIA [id number] [place] [address] Eosinophils/100 WBC (Bld) 2.0 % Normal [facility] Comment on above: Order Comment: Speci men Type: BLOOD SPECIMENOrdering Facility: [facility] Address: [address] [place] [address] Performed By: #### 5 7021-8 ####[facility] LABCLIA [id number] [place] [address] Erythrocyte distribution width (RBC) [Ratio] 17.7 % High 11.5-15.0 [facility] Comment on above: Order Comment: Speci men Type: BLOOD SPECIMENOrdering Facility: [facility] Address: [address] [place] [address] Performed By: #### 5 7021-8 ####[facility] LABCLIA [id number] [place] [address] Hematocrit (Bld) [Volume fraction] 32.0 % Low 39.0-51.0 [facility] Comment on above: Order Comment: Speci men Type: BLOOD SPECIMENOrdering Facility: [facility] Address: [address] [place] [address] Performed By: #### 5 7021-8 ####[facility] LABIA [id number] [place] [address] Hemoglobin (Bld) [Mass/Vol] 10.6 g/dL Low 13.0-17.0 [facility] Comment on above: Order Comment: Speci men Type: BLOOD SPECIMENOrdering Facility: [facility] Address: [address] [place] [address] Performed By: #### 5 7021-8 ####[facility] LABIA [id number] [place] [address] Immature granulocytes (Bld) [#/Vol] <0.10 k/uL [facility] Immature granulocytes (Bld) [#/Vol] 10*3/uL Normal <0.10 [facility] Comment on above: Order Comment: Speci men Type: BLOOD SPECIMENOrdering Facility: [facility] Address: [address] [place] [address] Performed By: #### 5 7021-8 ####[facility] LABCLIA [id number] [place] [address] Immature granulocytes/100 WBC (Bld) 0.3 % [facility] Immature granulocytes/100 WBC (Bld) 0.3 % Normal [facility] Comment on above: Order Comment: Speci men Type: BLOOD SPECIMENOrdering Facility: [facility] Address: [address] [place] [address] Performed By: #### 5 7021-8 ####[facility] LABCLIA [id number] [place] [address] Lymphocytes (Bld) [#/Vol] 1.27 10*3/uL 1.00 - 4.00 k/uL [facility] Lymphocytes (Bld) [#/Vol] 1.27 10*3/uL Normal 1.00-4.00 [facility] Comment on above: Order Comment: Speci men Type: BLOOD SPECIMENOrdering Facility: [facility] Address: [address] [place] [address] Performed By: #### 5 7021-8 ####[facility] LABCLIA [id number] [place] [address] Lymphocytes/100 WBC (Bld) 21.5 % Normal [facility] Comment on above: Order Comment: Speci men Type: BLOOD SPECIMENOrdering Facility: [facility] Address: [address] [place] [address] Performed By: #### 5 7021-8 ####[facility] LABCLIA [id number] [place] [address] MCH (RBC) [Entitic mass] 33.9 pg Normal 26.0-34.0 [facility] Comment on above: Order Comment: Speci men Type: BLOOD SPECIMENOrdering Facility: [facility] Address: [address] [place] [address] Performed By: #### 5 7021-8 ####[facility] LABCLIA [id number] [place] [address] MCHC (RBC) [Mass/Vol] 33.1 g/dL Normal 30.5-36.0 [facility] Comment on above: Order Comment: Speci men Type: BLOOD SPECIMENOrdering Facility: [facility] Address: [address] [place] [address] Performed By: #### 5 7021-8 ####[facility] LABCLIA [id number] [place] [address] MCV (RBC) [Entitic vol] 102.2 fL High 80.0-100.0 [facility] Comment on above: Order Comment: Speci men Type: BLOOD SPECIMENOrdering Facility: [facility] Address: [address] [place] [address] Performed By: #### 5 7021-8 ####[facility] LABCLIA [id number] [place] [address] Monocytes (Bld) [#/Vol] 0.41 10*3/uL <0.87 k/uL [facility] Monocytes (Bld) [#/Vol] 0.41 10*3/uL Normal <0.87 [facility] Comment on above: Order Comment: Speci men Type: BLOOD SPECIMENOrdering Facility: [facility] Address: [address] [place] [address] Performed By: #### 5 7021-8 ####[facility] LABCLIA [id number] [place] [address] Monocytes/100 WBC (Bld) 6.9 % Normal [facility] Comment on above: Order Comment: Speci men Type: BLOOD SPECIMENOrdering Facility: [facility] Address: [address] [place] [address] Performed By: #### 5 7021-8 ####[facility] LABIA [id number] [place] [address] Neutrophils (Bld) [#/Vol] 4.04 10*3/uL 1.45 - 7.50 k/uL [facility] Neutrophils (Bld) [#/Vol] 4.04 10*3/uL Normal 1.45-7.50 [facility] Comment on above: Order Comment: Speci men Type: BLOOD SPECIMENOrdering Facility: [facility] Address: [address] [place] [address] Performed By: #### 5 7021-8 ####[facility] LABIA [id number] [place] [address] Neutrophils/100 WBC (Bld) 68.6 % Normal [facility] Comment on above: Order Comment: Speci men Type: BLOOD SPECIMENOrdering Facility: [facility] Address: [address] [place] [address] Performed By: #### 5 7021-8 ####[facility] LABCLIA [id number] [place] [address] Nucleated RBC (Bld) [#/Vol] <0.01 k/uL [facility] Nucleated RBC (Bld) [#/Vol] 10*3/uL Normal <0.01 [facility] Comment on above: Order Comment: Speci men Type: BLOOD SPECIMENOrdering Facility: [facility] Address: [address] [place] [address] Performed By: #### 5 7021-8 ####[facility] LABIA [id number] [place] [address] Nucleated RBC/100 WBC (Bld) [Ratio] 0.0 /100 WBC [facility] Nucleated RBC/100 WBC (Bld) [Ratio] 0.0 /100 WBC Normal [facility] Comment on above: Order Comment: Speci men Type: BLOOD SPECIMENOrdering Facility: [facility] Address: [address] [place] [address] Performed By: #### 5 7021-8 ####[facility] LABIA [id number] [place] [address] Platelet mean volume (Bld) [Entitic vol] 9.4 fL 9.0 - 12.7 fL [facility] Platelet mean volume (Bld) [Entitic vol] 9.4 fL Normal 9.0-12.7 [facility] Comment on above: Order Comment: Speci men Type: BLOOD SPECIMENOrdering Facility: [facility] Address: [address] [place] [address] Performed By: #### 5 7021-8 ####[facility] LABIA [id number] [place] [address] Platelets (Bld) [#/Vol] 211 10*3/uL 150 - 400 k/uL [facility] Platelets (Bld) [#/Vol] 211 10*3/uL Normal 150-400 [facility] Comment on above: Order Comment: Speci men Type: BLOOD SPECIMENOrdering Facility: [facility] Address: [address] [place] [address] Performed By: #### 5 7021-8 ####[facility] LABIA [id number] [place] [address] RBC (Bld) [#/Vol] 3.13 10*6/uL Low 4.20-6.00 [facility] Comment on above: Order Comment: Speci men Type: BLOOD SPECIMENOrdering Facility: [facility] Address: [address] [place] [address] Performed By: #### 5 7021-8 ####[facility] LABIA [id number] [place] [address] WBC (Bld) [#/Vol] 5.90 10*3/uL 3.70 - 11.00 k/uL [facility] WBC (Bld) [#/Vol] 5.90 10*3/uL Normal 3.70-11.00 [facility] Comment on above: Order Comment: Speci men Type: BLOOD SPECIMENOrdering Facility: [facility] Address: [address] [place] [address] Performed By: #### 5 7021-8 ####[facility] LABIA [id number] [place] [address] [facility] CBC W AUTO DIFF BLDon [facility] BASOPHILS # BLD AUTO 0.04 [facility] DIFFERENTIAL METHOD BLD Auto [facility] EOSINOPHIL # BLD AUTO 0.12 [facility] LYMPHOCYTES # BLD AUTO 1.27 [facility] MONOCYTES # BLD AUTO 0.41 [facility] NEUTROPHILS # BLD AUTO 4.04 [facility] NRBC # BLD AUTO <0.01 [facility] NRBC/100 WBC BLD-RTO 0.0 /100 WBC [facility] PLATELET # BLD AUTO 211 [facility] PMV BLD AUTO 9.4 fL 9.0 - 12.7 fL [facility] WBC # BLD AUTO 5.90 [facility] IMM GRANULOCYTES # BLD AUTO <0.03 [facility] IMM GRANULOCYTES/LE[place] NFR BLD AUTO 0.3 % [facility] Interpretation and review of laboratory results Abnormal [facility] Specimen Type: BLOOD SPECIMEN [facility] Address: [address] [place] [address] Original Ordering Provider: GRACE NEWBY [facility] CNOVSPon 07-05-2023 CNOVSP Normal [facility] Cancer Ag19-9 SerPl-aCncon 0 07-05-2023 Cancer Ag 19-9 Qn 1918.0 [arb'U]/mL High <36.0 [facility] Comment on above: Order Comment: Speci men Type: BLOOD SPECIMENOrdering Facility: [facility] Address: [address] [place] [address] Result Comment: [facility] er antigen 19-9 test is used as an aid in monitoring response to treatment or recurrence in patients with established pancreatic, hepatobiliary, or gastrointestinal malignancies. Clinical correlation is required.The CA 19-9 Antigen test was performed using the [employer] Un[employer] DXI paramagnetic particle chemiluminescent immunoassay method. Results obtained with different assay methods or kits cannot be used interchangeably. Performed By: #### 2 4108-3 ####[facility] LABCLIA [id number] [place] [address] [place] Comprehensive metabolic 2000 panelon 07-05-2023 Albumin [Mass/Vol] 3.8 g/dL Low 3.9 - 4.9 g/dL [facility] Albumin [Mass/Vol] 3.8 g/dL Low 3.9-4.9 [facility] Comment on above: Order Comment: Speci men Type: BLOOD SPECIMENOrdering Facility: [facility] Address: [address] [place] [address] Performed By: #### 2 4323-8 ####[facility] LABCLIA [id number] [place] [address] ALP [Catalytic activity/Vol] 128 U/L High 38 - 113 U/L [facility] ALP [Catalytic activity/Vol] 128 U/L High 38-113 [facility] Comment on above: Order Comment: Speci men Type: BLOOD SPECIMENOrdering Facility: [facility] Address: [address] [place] [address] Performed By: #### 2 4323-8 ####ESEQUIEL [facility] LABCLIA [id number] [place] [address] ALT [Catalytic activity/Vol] 24 U/L 10 - 54 U/L [facility] ALT [Catalytic activity/Vol] 24 U/L Normal 10-54 [facility] Comment on above: Order Comment: Speci men Type: BLOOD SPECIMENOrdering Facility: [facility] Address: [address] [place] [address] Performed By: #### 2 4323-8 ####[facility] LABCLIA [id number] [place] [address] Anion gap [Moles/Vol] 10 mmol/L 9 - 18 mmol/L [facility] Anion gap [Moles/Vol] 10 mmol/L Normal 9-18 [facility] Comment on above: Order Comment: Speci men Type: BLOOD SPECIMENOrdering Facility: [facility] Address: [address] [place] [address] Performed By: #### 2 4323-8 ####[facility] LABCLIA [id number] [place] [address] AST [Catalytic activity/Vol] 14 U/L 14 - 40 U/L [facility] AST [Catalytic activity/Vol] 14 U/L Normal 14-40 [facility] Comment on above: Order Comment: Speci men Type: BLOOD SPECIMENOrdering Facility: [facility] Address: [address] [place] [address] Performed By: #### 2 4323-8 ####[facility] LABCLIA [id number] [place] [address] Bilirubin [Mass/Vol] 1.3 mg/dL 0.2 - 1 .3 mg/dL [facility] Bilirubin [Mass/Vol] 1.3 mg/dL Normal 0.2-1.3 [facility] Comment on above: Order Comment: Speci men Type: BLOOD SPECIMENOrdering Facility: [facility] Address: [address] [place] [address] Performed By: #### 2 4323-8 ####[facility] LABCLIA [id number] [place] [address] Calcium [Mass/Vol] 10.3 mg/dL High 8.5 - 10. 2 mg/dL [facility] Calcium [Mass/Vol] 10.3 mg/dL High 8.5-10.2 [facility] Comment on above: Order Comment: Speci men Type: BLOOD SPECIMENOrdering Facility: [facility] Address: [address] [place] [address] Performed By: #### 2 4323-8 ####[facility] LABCLIA [id number] [place] [address] Chloride [Moles/Vol] 106 mmol/L High 97 - 10 5 mmol/L [facility] Chloride [Moles/Vol] 106 mmol/L High 97-105 [facility] Comment on above: Order Comment: Speci men Type: BLOOD SPECIMENOrdering Facility: [facility] Address: [address] [place] [address] Performed By: #### 2 4323-8 ####[facility] LABCLIA [id number] [place] [address] CO2 [Moles/Vol] 23 mmol/L 22 - 30 mmol/L [facility] CO2 [Moles/Vol] 23 mmol/L Normal 22-30 [facility] Comment on above: Order Comment: Speci men Type: BLOOD SPECIMENOrdering Facility: [facility] Address: [address] [place] [address] Performed By: #### 2 4323-8 ####[facility] LABCLIA [id number] [place] [address] Creatinine [Mass/Vol] 0.85 mg/dL 0.73 - 1.22 mg/dL [facility] Creatinine [Mass/Vol] 0.85 mg/dL Normal 0.73-1.22 [facility] Comment on above: Order Comment: Noemí men Type: BLOOD SPECIMENOrdering Facility: [facility] Address: [address] [place] [address] Performed By: #### 2 4323-8 ####[facility] LABIA [id number] [place] [address] Creatinine and Glomerular filtration rate.predicted panel (S/P/Bld) 92 mL/min/1.73m??? Normal >=60 [facility] Comment on above: Order Comment: Noemí hoff Type: BLOOD SPECIMENOrdering Facility: [facility] Address: [address] [place] [address] Result Comment: Kathy mated Glomerular Filtration Rate [...] actual GFR. Performed By: #### 2 4323-8 ####[facility] LABIA [id number] [place] [address] Estimated Glomerular Filtration Rate 92 mL/min/1.73m >=60 mL/min/1.73 m [facility] Glucose [Mass/Vol] 164 mg/dL High 74 - 99 mg/dL [facility] Glucose [Mass/Vol] 164 mg/dL High 74-99 [facility] Comment on above: Order Comment: Speci men Type: BLOOD SPECIMENOrdering Facility: [facility] Address: [address] [place], [place] [address] Result Comment: The [place] [employer] (ADA) provides guidance for cutoff [...] Standards of Medical Care in Diabetes 2016, [place] [employer]. Diabetes Care. 2016.39(Suppl 1). Performed By: #### 2 4323-8 ####[facility] LABCLIA [id number] [place] [address] Potassium [Moles/Vol] 3.6 mmol/L Low 3.7 - 5.1 mmol/L [facility] Potassium [Moles/Vol] 3.6 mmol/L Low 3.7-5.1 [facility] Comment on above: Order Comment: Speci men Type: BLOOD SPECIMENOrdering Facility: [facility] Address: [address] [place] [address] Performed By: #### 2 4323-8 ####[facility] LABCLIA [id number] [place] [address] Protein [Mass/Vol] 6.3 g/dL 6.3 - 8.0 g/dL [facility] Protein [Mass/Vol] 6.3 g/dL Normal 6.3-8.0 [facility] Comment on above: Order Comment: Speci men Type: BLOOD SPECIMENOrdering Facility: [facility] Address: [address] [place] [address] Performed By: #### 2 4323-8 ####[facility] LABCLIA [id number] [place] [address] Sodium [Moles/Vol] 139 mmol/L 136 - 144 mmol/L [facility] Sodium [Moles/Vol] 139 mmol/L Normal 136-144 [facility] Comment on above: Order Comment: Speci men Type: BLOOD SPECIMENOrdering Facility: [facility] Address: [address] [place] [address] Performed By: #### 2 4323-8 ####[facility] LABCL[facility] [id number] [place] [address] Urea nitrogen [Mass/Vol] 19 mg/dL 9 - 24 mg/dL [facility] Urea nitrogen [Mass/Vol] 19 mg/dL Normal 9-24 [facility] Comment on above: Order Comment: Speci men Type: BLOOD SPECIMENOrdering Facility: [facility] Address: [address] [place] [address] Performed By: #### 2 4323-8 ####[facility] LABCLIA [id number] [place] [address] Laboratory - Hematology and Cell countson 07-05-2023 Basophils/100 WBC (Bld) 0.7 % [facility] Eosinophils/100 WBC (Bld) 2.0 % [facility] Erythrocyte distribution width (RBC) [Ratio] 17.7 % High 11.5 - 15.0 % [facility] Hematocrit (Bld) [Volume fraction] 32.0 % Low 39.0 - 51.0 % [facility] Hemoglobin (Bld) [Mass/Vol] 10.6 g/dL Low 13.0 - 17.0 g/dL [facility] Lymphocytes/100 WBC (Bld) 21.5 % [facility] MCH (RBC) [Entitic mass] 33.9 pg 26.0 - 34.0 pg [facility] MCHC (RBC) [Mass/Vol] 33.1 g/dL 30.5 - 36.0 g/dL [facility] MCV (RBC) [Entitic vol] 102.2 fL High 80.0 - 100.0 fL [facility] Monocytes/100 WBC (Bld) 6.9 % [facility] Neutrophils/100 WBC (Bld) 68.6 % [facility] RBC (Bld) [#/Vol] 3.13 10*6/uL Low 4.20 - 6.0 0 m/uL [facility] CNPNon 06-23-2023 CNPN Normal [facility] CBC W Auto Differential pane l (Bld)on 06-21-2023 Basophils (Bld) [#/Vol] 0.03 10*3/uL Normal <0.11 [facility] Comment on above: Order Comment: Speci men Type: BLOOD SPECIMENOrdering Facility: [facility] Address: [address] [place] [address] Performed By: #### 5 7021-8 ####[facility] LABCLIA [id number] [place] [address] Basophils/100 WBC (Bld) 0.4 % Normal [facility] Comment on above: Order Comment: Speci men Type: BLOOD SPECIMENOrdering Facility: [facility] Address: [address] [place] [address] Performed By: #### 5 7021-8 ####[facility] LABCLIA [id number] [place] [address] Differential cell count method Nom (Bld) Auto Normal [facility] Comment on above: Order Comment: Speci men Type: BLOOD SPECIMENOrdering Facility: [facility] Address: [address] [place] [address] Performed By: #### 5 7021-8 ####[facility] LABCLIA [id number] [place] [address] Eosinophils (Bld) [#/Vol] 0.07 10*3/uL Normal <0.46 [facility] Comment on above: Order Comment: Speci men Type: BLOOD SPECIMENOrdering Facility: [facility] Address: [address] [place] [address] Performed By: #### 5 7021-8 ####[facility] LABCLIA [id number] [place] [address] Eosinophils/100 WBC (Bld) 0.9 % Normal [facility] Comment on above: Order Comment: Speci men Type: BLOOD SPECIMENOrdering Facility: [facility] Address: [address] [place] [address] Performed By: #### 5 7021-8 ####[facility] LABCLIA [id number] [place] [address] Erythrocyte distribution width (RBC) [Ratio] 16.7 % High 11.5-15.0 [facility] Comment on above: Order Comment: Speci men Type: BLOOD SPECIMENOrdering Facility: [facility] Address: [address] [place] [address] Performed By: #### 5 7021-8 ####[facility] LABCLIA [id number] [place] [address] Hematocrit (Bld) [Volume fraction] 29.9 % Low 39.0-51.0 [facility] Comment on above: Order Comment: Speci men Type: BLOOD SPECIMENOrdering Facility: [facility] Address: [address] [place] [address] Performed By: #### 5 7021-8 ####[facility] LABIA [id number] [place] [address] Hemoglobin (Bld) [Mass/Vol] 10.1 g/dL Low 13.0-17.0 [facility] Comment on above: Order Comment: Speci men Type: BLOOD SPECIMENOrdering Facility: [facility] Address: [address] [place] [address] Performed By: #### 5 7021-8 ####[facility] LABCLIA [id number] [place] [address] Immature granulocytes (Bld) [#/Vol] 0.03 10*3/uL Normal <0.10 [facility] Comment on above: Order Comment: Speci men Type: BLOOD SPECIMENOrdering Facility: [facility] Address: [address] [place] [address] Performed By: #### 5 7021-8 ####[facility] LABCLIA [id number] [place] [address] Immature granulocytes/100 WBC (Bld) 0.4 % Normal [facility] Comment on above: Order Comment: Speci men Type: BLOOD SPECIMENOrdering Facility: [facility] Address: [address] [place] [address] Performed By: #### 5 7021-8 ####[facility] LABCLIA [id number] [place] [address] Lymphocytes (Bld) [#/Vol] 1.48 10*3/uL Normal 1.00-4.00 [facility] Comment on above: Order Comment: Speci men Type: BLOOD SPECIMENOrdering Facility: [facility] Address: [address] [place] [address] Performed By: #### 5 7021-8 ####[facility] LABCLIA [id number] [place] [address] Lymphocytes/100 WBC (Bld) 20.0 % Normal [facility] Comment on above: Order Comment: Speci men Type: BLOOD SPECIMENOrdering Facility: [facility] Address: [address] [place] [address] Performed By: #### 5 7021-8 ####[facility] LABCLIA [id number] [place] [address] MCH (RBC) [Entitic mass] 34.0 pg Normal 26.0-34.0 [facility] Comment on above: Order Comment: Speci men Type: BLOOD SPECIMENOrdering Facility: [facility] Address: [address] [place] [address] Performed By: #### 5 7021-8 ####[facility] LABCLIA [id number] [place] [address] MCHC (RBC) [Mass/Vol] 33.8 g/dL Normal 30.5-36.0 [facility] Comment on above: Order Comment: Speci men Type: BLOOD SPECIMENOrdering Facility: [facility] Address: [address] [place] [address] Performed By: #### 5 7021-8 ####[facility] LABCLIA [id number] [place] [address] MCV (RBC) [Entitic vol] 100.7 fL High 80.0-100.0 [facility] Comment on above: Order Comment: Speci men Type: BLOOD SPECIMENOrdering Facility: [facility] Address: [address] [place] [address] Performed By: #### 5 7021-8 ####[facility] LABCLIA [id number] [place] [address] Monocytes (Bld) [#/Vol] 0.38 10*3/uL Normal <0.87 [facility] Comment on above: Order Comment: Speci men Type: BLOOD SPECIMENOrdering Facility: [facility] Address: [address] [place] [address] Performed By: #### 5 7021-8 ####[facility] LABCLIA [id number] [place] [address] Monocytes/100 WBC (Bld) 5.1 % Normal [facility] Comment on above: Order Comment: Speci men Type: BLOOD SPECIMENOrdering Facility: [facility] Address: [address] [place] [address] Performed By: #### 5 7021-8 ####[facility] LABCLIA [id number] [place] [address] Neutrophils (Bld) [#/Vol] 5.41 10*3/uL Normal 1.45-7.50 [facility] Comment on above: Order Comment: Speci men Type: BLOOD SPECIMENOrdering Facility: [facility] Address: [address] [place] [address] Performed By: #### 5 7021-8 ####[facility] LABCLIA [id number] [place] [address] Neutrophils/100 WBC (Bld) 73.2 % Normal [facility] Comment on above: Order Comment: Speci men Type: BLOOD SPECIMENOrdering Facility: [facility] Address: [address] [place] [address] Performed By: #### 5 7021-8 ####[facility] LABCLIA [id number] [place] [address] Nucleated RBC (Bld) [#/Vol] 10*3/uL Normal <0.01 [facility] Comment on above: Order Comment: Speci men Type: BLOOD SPECIMENOrdering Facility: [facility] Address: [address] [place] [address] Performed By: #### 5 7021-8 ####[facility] LABCLIA [id number] [place] [address] Nucleated RBC/100 WBC (Bld) [Ratio] 0.0 /100 WBC Normal [facility] Comment on above: Order Comment: Speci men Type: BLOOD SPECIMENOrdering Facility: [facility] Address: [address] [place] [address] Performed By: #### 5 7021-8 ####[facility] LABCLIA [id number] [place] [address] Platelet mean volume (Bld) [Entitic vol] 9.0 fL Normal 9.0-12.7 [facility] Comment on above: Order Comment: Speci men Type: BLOOD SPECIMENOrdering Facility: [facility] Address: [address] [place] [id number] Performed By: #### 5 7021-8 ####[facility] LABCLIA [id number] [place] [address] Platelets (Bld) [#/Vol] 258 10*3/uL Normal 150-400 [facility] Comment on above: Order Comment: Speci men Type: BLOOD SPECIMENOrdering Facility: [facility] Address: [address] [place] [address] Performed By: #### 5 7021-8 ####[facility] LABCLIA [id number] [place] [address] RBC (Bld) [#/Vol] 2.97 10*6/uL Low 4.20-6.00 [facility] Comment on above: Order Comment: Speci men Type: BLOOD SPECIMENOrdering Facility: [facility] Address: [address] [place] [address] Performed By: #### 5 7021-8 ####[facility] LABCLIA [id number] [place] [address] WBC (Bld) [#/Vol] 7.40 10*3/uL Normal 3.70-11.00 [facility] Comment on above: Order Comment: Speci men Type: BLOOD SPECIMENOrdering Facility: [facility] Address: [address] [place] [address] Performed By: #### 5 7021-8 ####[facility] LABIA [id number] [place] [address] CNCNPATEDon 06-21-2023 CNCNPATED Normal [facility] CNOVSPon 06-21-2023 CNOVSP Normal [facility] Comprehensive metabolic 2000 panelon 06-21-2023 Albumin [Mass/Vol] 3.8 g/dL Low 3.9-4.9 [facility] Comment on above: Order Comment: Speci men Type: BLOOD SPECIMENOrdering Facility: [facility] Address: [address] [place], [place] [address] Performed By: #### 2 4323-8 ####[facility] LABIA [id number] [place] [address] ALP [Catalytic activity/Vol] 121 U/L High 38-113 [facility] Comment on above: Order Comment: Speci men Type: BLOOD SPECIMENOrdering Facility: [facility] Address: [address] [place] [address] Performed By: #### 2 4323-8 ####[facility] LABCLIA [id number] [place] [address] ALT [Catalytic activity/Vol] 16 U/L Normal 10-54 [facility] Comment on above: Order Comment: Speci men Type: BLOOD SPECIMENOrdering Facility: [facility] Address: [address] [place] [address] Performed By: #### 2 4323-8 ####[facility] LABCLIA [id number] [place] [address] Anion gap [Moles/Vol] 9 mmol/L Normal 9-18 [facility] Comment on above: Order Comment: Speci men Type: BLOOD SPECIMENOrdering Facility: [facility] Address: [address] [place] [address] Performed By: #### 2 4323-8 ####[facility] LABCLIA [id number] [place] [address] AST [Catalytic activity/Vol] 15 U/L Normal 14-40 [facility] Comment on above: Order Comment: Speci men Type: BLOOD SPECIMENOrdering Facility: [facility] Address: [address] [place] [address] Performed By: #### 2 4323-8 ####[facility] LABCLIA [id number] [place] [address] Bilirubin [Mass/Vol] 1.2 mg/dL Normal 0.2-1.3 [facility] Comment on above: Order Comment: Speci men Type: BLOOD SPECIMENOrdering Facility: [facility] Address: [address] [place], [place] [address] Performed By: #### 2 4323-8 ####[facility] LABCLIA [id number] [place] [address] Calcium [Mass/Vol] 10.2 mg/dL Normal 8.5-10.2 [facility] Comment on above: Order Comment: Speci men Type: BLOOD SPECIMENOrdering Facility: [facility] Address: [address] [place] [address] Performed By: #### 2 4323-8 ####[facility] LABCLIA [id number] [place] [address] Chloride [Moles/Vol] 107 mmol/L High 97-105 [facility] Comment on above: Order Comment: Speci men Type: BLOOD SPECIMENOrdering Facility: [facility] Address: [address] [place] [address] Performed By: #### 2 4323-8 ####[facility] LABCLIA [id number] [place] [address] CO2 [Moles/Vol] 23 mmol/L Normal 22-30 [facility] Comment on above: Order Comment: Speci men Type: BLOOD SPECIMENOrdering Facility: [facility] Address: [address] [place] [address] Performed By: #### 2 4323-8 ####[facility] LABCLIA [id number] [place] [address] Creatinine [Mass/Vol] 0.75 mg/dL Normal 0.73-1.22 [facility] Comment on above: Order Comment: Speci men Type: BLOOD SPECIMENOrdering Facility: [facility] Address: [address] [place] [address] Performed By: #### 2 4323-8 ####[facility] LABCLIA [id number] [place] [address] Creatinine and Glomerular filtration rate.predicted panel (S/P/Bld) 96 mL/min/1.73m??? Normal >=60 [facility] Comment on above: Order Comment: Speci men Type: BLOOD SPECIMENOrdering Facility: [facility] Address: [address] [place] [address] Result Comment: Kathy mated Glomerular Filtration Rate [...] actual GFR. Performed By: #### 2 4323-8 ####[facility] LABCLIA [id number] [place] [address] Glucose [Mass/Vol] 156 mg/dL High 74-99 [facility] Comment on above: Order Comment: Speci men Type: BLOOD SPECIMENOrdering Facility: [facility] Address: [address] [place] [address] Result Comment: The [place] [employer] (ADA) provides guidance for cutoff [...] Standards of Medical Care in Diabetes 2016, [place] [employer]. Diabetes Care. 2016.39(Suppl 1). Performed By: #### 2 4323-8 ####[facility] LABCLIA [id number] [place] [address] Potassium [Moles/Vol] 3.6 mmol/L Low 3.7-5.1 [facility] Comment on above: Order Comment: Speci men Type: BLOOD SPECIMENOrdering Facility: [facility] Address: [address] [place] [address] Performed By: #### 2 4323-8 ####[facility] LABCLIA [id number] [place] [address] Protein [Mass/Vol] 6.1 g/dL Low 6.3-8.0 [facility] Comment on above: Order Comment: Speci men Type: BLOOD SPECIMENOrdering Facility: [facility] Address: [address] [place] [address] Performed By: #### 2 4323-8 ####[facility] LABCLIA [id number] [place] [address] Sodium [Moles/Vol] 139 mmol/L Normal 136-144 [facility] Comment on above: Order Comment: Speci men Type: BLOOD SPECIMENOrdering Facility: [facility] Address: [address] [place] [address] Performed By: #### 2 4323-8 ####[facility] LABCLIA [id number] [place] [address] Urea nitrogen [Mass/Vol] 13 mg/dL Normal 9-24 [facility] Comment on above: Order Comment: Speci men Type: BLOOD SPECIMENOrdering Facility: [facility] Address: [address] [place] [address] Performed By: #### 2 4323-8 ####[facility] LABCLIA [id number] [place] [address] CNPNon 06-12-2023 CNPN Normal [facility] CNPNon 06-08-2023 CNPN Normal [facility] CBC W Auto Differential pane l (Bld)on 06-07-2023 Basophils (Bld) [#/Vol] 0.04 10*3/uL Normal <0.11 [facility] Comment on above: Order Comment: Speci men Type: BLOOD SPECIMENOrdering Facility: [facility] Address: [address] [place] [address] Performed By: #### 5 7021-8 ####[facility] LABCLIA [id number] [place] [address] Basophils/100 WBC (Bld) 0.4 % Normal [facility] Comment on above: Order Comment: Speci men Type: BLOOD SPECIMENOrdering Facility: [facility] Address: [address] [place] [address] Performed By: #### 5 7021-8 ####[facility] LABCLIA [id number] [place] [address] Differential cell count method Nom (Bld) Auto Normal [facility] Comment on above: Order Comment: Speci men Type: BLOOD SPECIMENOrdering Facility: [facility] Address: [address] [place] [address] Performed By: #### 5 7021-8 ####[facility] LABCLIA [id number] [place] [address] Eosinophils (Bld) [#/Vol] 10*3/uL Normal <0.46 [facility] Comment on above: Order Comment: Speci men Type: BLOOD SPECIMENOrdering Facility: [facility] Address: [address] [place] [address] Performed By: #### 5 7021-8 ####[facility] LABCLIA [id number] [place] [address] Eosinophils/100 WBC (Bld) 0.1 % Normal [facility] Comment on above: Order Comment: Speci men Type: BLOOD SPECIMENOrdering Facility: [facility] Address: [address] [place] [address] Performed By: #### 5 7021-8 ####[facility] LABCLIA [id number] [place] [address] Erythrocyte distribution width (RBC) [Ratio] 15.4 % High 11.5-15.0 [facility] Comment on above: Order Comment: Speci men Type: BLOOD SPECIMENOrdering Facility: [facility] Address: [address] [place] [address] Performed By: #### 5 7021-8 ####[facility] LABIA [id number] [place] [address] Hematocrit (Bld) [Volume fraction] 35.8 % Low 39.0-51.0 [facility] Comment on above: Order Comment: Speci men Type: BLOOD SPECIMENOrdering Facility: [facility] Address: [address] [place] [address] Performed By: #### 5 7021-8 ####[facility] LABCLIA [id number] [place] [address] Hemoglobin (Bld) [Mass/Vol] 11.7 g/dL Low 13.0-17.0 [facility] Comment on above: Order Comment: Speci men Type: BLOOD SPECIMENOrdering Facility: [facility] Address: [address] [place] [address] Performed By: #### 5 7021-8 ####[facility] LABCLIA [id number] [place] [address] Immature granulocytes (Bld) [#/Vol] 0.04 10*3/uL Normal <0.10 [facility] Comment on above: Order Comment: Speci men Type: BLOOD SPECIMENOrdering Facility: [facility] Address: [address] [place] [address] Performed By: #### 5 7021-8 ####[facility] LABCLIA [id number] [place] [address] Immature granulocytes/100 WBC (Bld) 0.4 % Normal [facility] Comment on above: Order Comment: Speci men Type: BLOOD SPECIMENOrdering Facility: [facility] Address: [address] [place] [address] Performed By: #### 5 7021-8 ####[facility] LABCLIA [id number] [place] [address] Lymphocytes (Bld) [#/Vol] 1.39 10*3/uL Normal 1.00-4.00 [facility] Comment on above: Order Comment: Speci men Type: BLOOD SPECIMENOrdering Facility: [facility] Address: [address] [place] [address] Performed By: #### 5 7021-8 ####[facility] LABCLIA [id number] [place] [address] Lymphocytes/100 WBC (Bld) 12.4 % Normal [facility] Comment on above: Order Comment: Speci men Type: BLOOD SPECIMENOrdering Facility: [facility] Address: [address] [place] [address] Performed By: #### 5 7021-8 ####[facility] LABCLIA [id number] [place] [address] MCH (RBC) [Entitic mass] 33.0 pg Normal 26.0-34.0 [facility] Comment on above: Order Comment: Speci men Type: BLOOD SPECIMENOrdering Facility: [facility] Address: [address] [place] [address] Performed By: #### 5 7021-8 ####[facility] LABIA [id number] [place] [address] MCHC (RBC) [Mass/Vol] 32.7 g/dL Normal 30.5-36.0 [facility] Comment on above: Order Comment: Speci men Type: BLOOD SPECIMENOrdering Facility: [facility] Address: [address] [place] [address] Performed By: #### 5 7021-8 ####[facility] LABIA [id number] [place] [address] MCV (RBC) [Entitic vol] 100.8 fL High 80.0-100.0 [facility] Comment on above: Order Comment: Speci men Type: BLOOD SPECIMENOrdering Facility: [facility] Address: [address] [place] [address] Performed By: #### 5 7021-8 ####[facility] LABIA [id number] [place] [address] Monocytes (Bld) [#/Vol] 0.76 10*3/uL Normal <0.87 [facility] Comment on above: Order Comment: Speci men Type: BLOOD SPECIMENOrdering Facility: [facility] Address: [address] [place] [address] Performed By: #### 5 7021-8 ####[facility] LABCLIA [id number] [place] [address] Monocytes/100 WBC (Bld) 6.8 % Normal [facility] Comment on above: Order Comment: Speci men Type: BLOOD SPECIMENOrdering Facility: [facility] Address: [address] [place] [address] Performed By: #### 5 7021-8 ####[facility] LABCLIA [id number] [place] [address] Neutrophils (Bld) [#/Vol] 8.98 10*3/uL High 1.45-7.50 [facility] Comment on above: Order Comment: Speci men Type: BLOOD SPECIMENOrdering Facility: [facility] Address: [address] [place] [address] Performed By: #### 5 7021-8 ####[facility] LABCLIA [id number] [place] [address] Neutrophils/100 WBC (Bld) 79.9 % Normal [facility] Comment on above: Order Comment: Speci men Type: BLOOD SPECIMENOrdering Facility: [facility] Address: [address] [place] [address] Performed By: #### 5 7021-8 ####[facility] LABCLIA [id number] [place] [address] Nucleated RBC (Bld) [#/Vol] 10*3/uL Normal <0.01 [facility] Comment on above: Order Comment: Speci men Type: BLOOD SPECIMENOrdering Facility: [facility] Address: [address] [place] [address] Performed By: #### 5 7021-8 ####[facility] LABIA [id number] [place] [address] Nucleated RBC/100 WBC (Bld) [Ratio] 0.0 /100 WBC Normal [facility] Comment on above: Order Comment: Speci men Type: BLOOD SPECIMENOrdering Facility: [facility] Address: [address] [place] [address] Performed By: #### 5 7021-8 ####[facility] LABCLIA [id number] [place] [address] Platelet mean volume (Bld) [Entitic vol] 9.9 fL Normal 9.0-12.7 [facility] Comment on above: Order Comment: Speci men Type: BLOOD SPECIMENOrdering Facility: [facility] Address: [address] [place] [address] Performed By: #### 5 7021-8 ####[facility] LABCLIA [id number] [place] [address] Platelets (Bld) [#/Vol] 297 10*3/uL Normal 150-400 [facility] Comment on above: Order Comment: Speci men Type: BLOOD SPECIMENOrdering Facility: [facility] Address: [address] [place] [address] Performed By: #### 5 7021-8 ####[facility] LABCLIA [id number] [place] [address] RBC (Bld) [#/Vol] 3.55 10*6/uL Low 4.20-6.00 [facility] Comment on above: Order Comment: Speci men Type: BLOOD SPECIMENOrdering Facility: [facility] Address: [address] [place] [address] Performed By: #### 5 7021-8 ####[facility] LABCLIA [id number] [place] [address] WBC (Bld) [#/Vol] 11.22 10*3/uL High 3.70-11.00 [facility] Comment on above: Order Comment: Speci men Type: BLOOD SPECIMENOrdering Facility: [facility] Address: [address] [place] [address] Performed By: #### 5 7021-8 ####[facility] LABCLIA [id number] [place] [address] CNCNPATEDon 06-07-2023 CNCNPATED Normal [facility] CNNURSEon 06-07-2023 CNNURSE Normal [facility] CNOVSPon 06-07-2023 CNOVSP Normal [facility] CNPNon 06-07-2023 CNPN Normal [facility] Comprehensive metabolic 2000 panelon 06-07-2023 Albumin [Mass/Vol] 4.3 g/dL Normal 3.9-4.9 [facility] Comment on above: Order Comment: Speci men Type: BLOOD SPECIMENOrdering Facility: [facility] Address: [address] [place] [address] Performed By: #### 2 4323-8 ####[facility] LABCLIA [id number] [place] [address] ALP [Catalytic activity/Vol] 127 U/L High 38-113 [facility] Comment on above: Order Comment: Speci men Type: BLOOD SPECIMENOrdering Facility: [facility] Address: [address] [place] [address] Performed By: #### 2 4323-8 ####[facility] LABCLIA [id number] [place] [address] ALT [Catalytic activity/Vol] 34 U/L Normal 10-54 [facility] Comment on above: Order Comment: Speci men Type: BLOOD SPECIMENOrdering Facility: [facility] Address: [address] [place] [address] Performed By: #### 2 4323-8 ####[facility] LABCLIA [id number] [place] [address] Anion gap [Moles/Vol] 9 mmol/L Normal 9-18 [facility] Comment on above: Order Comment: Speci men Type: BLOOD SPECIMENOrdering Facility: [facility] Address: [address] [place] [address] Performed By: #### 2 4323-8 ####[facility] LABCLIA [id number] [place] [address] AST [Catalytic activity/Vol] 25 U/L Normal 14-40 [facility] Comment on above: Order Comment: Speci men Type: BLOOD SPECIMENOrdering Facility: [facility] Address: [address] [place] [address] Performed By: #### 2 4323-8 ####[facility] LABCLIA [id number] [place] [address] Bilirubin [Mass/Vol] 1.3 mg/dL Normal 0.2-1.3 [facility] Comment on above: Order Comment: Speci men Type: BLOOD SPECIMENOrdering Facility: [facility] Address: [address] [place] [address] Performed By: #### 2 4323-8 ####[facility] LABCLIA [id number] [place] [address] Calcium [Mass/Vol] 10.7 mg/dL High 8.5-10.2 [facility] Comment on above: Order Comment: Speci men Type: BLOOD SPECIMENOrdering Facility: [facility] Address: [address] [place] [address] Performed By: #### 2 4323-8 ####[facility] LABCLIA [id number] [place] [address] Chloride [Moles/Vol] 103 mmol/L Normal 97-105 [facility] Comment on above: Order Comment: Speci men Type: BLOOD SPECIMENOrdering Facility: [facility] Address: [address] [place] [address] Performed By: #### 2 4323-8 ####[facility] LABCLIA [id number] [place] [address] CO2 [Moles/Vol] 25 mmol/L Normal 22-30 [facility] Comment on above: Order Comment: Speci men Type: BLOOD SPECIMENOrdering Facility: [facility] Address: [address] [place] [address] Performed By: #### 2 4323-8 ####[facility] LABCLIA [id number] [place] [address] Creatinine [Mass/Vol] 0.78 mg/dL Normal 0.73-1.22 [facility] Comment on above: Order Comment: Noemí hoff Type: BLOOD SPECIMENOrdering Facility: [facility] Address: [address] [place] [address] Performed By: #### 2 4323-8 ####[facility] LABCLIA [id number] [place] [address] Creatinine and Glomerular filtration rate.predicted panel (S/P/Bld) 95 mL/min/1.73m??? Normal >=60 [facility] Comment on above: Order Comment: Noemí hoff Type: BLOOD SPECIMENOrdering Facility: [facility] Address: [address] [place] [address] Result Comment: Kathy mated Glomerular Filtration Rate [...] actual GFR. Performed By: #### 2 4323-8 ####[facility] LABCLIA [id number] [place] [address] Glucose [Mass/Vol] 165 mg/dL High 74-99 [facility] Comment on above: Order Comment: Noemí hoff Type: BLOOD SPECIMENOrdering Facility: [facility] Address: [address] [place] [address] Result Comment: The [place] [employer] (ADA) provides guidance for cutoff [...] Standards of Medical Care in Diabetes 2016, [place] [employer]. Diabetes Care. 2016.39(Suppl 1). Performed By: #### 2 4323-8 ####[facility] LABCLIA [id number] [place] [address] Potassium [Moles/Vol] 4.3 mmol/L Normal 3.7-5.1 [facility] Comment on above: Order Comment: Speci men Type: BLOOD SPECIMENOrdering Facility: [facility] Address: [address] [place] [address] Performed By: #### 2 4323-8 ####[facility] LABCLIA [id number] [place] [address] Protein [Mass/Vol] 6.9 g/dL Normal 6.3-8.0 [facility] Comment on above: Order Comment: Speci men Type: BLOOD SPECIMENOrdering Facility: [facility] Address: [address] [place] [address] Performed By: #### 2 4323-8 ####[facility] LABCLIA [id number] [place] [address] Sodium [Moles/Vol] 137 mmol/L Normal 136-144 [facility] Comment on above: Order Comment: Speci men Type: BLOOD SPECIMENOrdering Facility: [facility] Address: [address] [place] [address] Performed By: #### 2 4323-8 ####[facility] LABCLIA [id number] [place] [address] Urea nitrogen [Mass/Vol] 18 mg/dL Normal 9-24 [facility] Comment on above: Order Comment: Speci men Type: BLOOD SPECIMENOrdering Facility: [facility] Address: [address] [place] [address] Performed By: #### 2 4323-8 ####[facility] LABCLIA [id number] [place] [address] CNPNon 06-06-2023 CNPN Normal [facility] CBC W Auto Differential pane l (Bld)on 05-24-2023 Basophils (Bld) [#/Vol] 10*3/uL Normal <0.11 [facility] Comment on above: Order Comment: Speci men Type: BLOOD SPECIMENOrdering Facility: [facility] Address: [address] [place] [address] Performed By: #### 5 7021-8 ####[facility] LABCLIA [id number] [place] [address] Basophils/100 WBC (Bld) 0.3 % Normal [facility] Comment on above: Order Comment: Speci men Type: BLOOD SPECIMENOrdering Facility: [facility] Address: [address] [place] [address] Performed By: #### 5 7021-8 ####[facility] LABCLIA [id number] [place] [address] Differential cell count method Nom (Bld) Auto Normal [facility] Comment on above: Order Comment: Speci men Type: BLOOD SPECIMENOrdering Facility: [facility] Address: [address] [place] [address] Performed By: #### 5 7021-8 ####[facility] LABCLIA [id number] [place] [address] Eosinophils (Bld) [#/Vol] 0.04 10*3/uL Normal <0.46 [facility] Comment on above: Order Comment: Speci men Type: BLOOD SPECIMENOrdering Facility: [facility] Address: [address] [place] [address] Performed By: #### 5 7021-8 ####[facility] LABCLIA [id number] [place] [address] Eosinophils/100 WBC (Bld) 0.5 % Normal [facility] Comment on above: Order Comment: Speci men Type: BLOOD SPECIMENOrdering Facility: [facility] Address: [address] [place] [address] Performed By: #### 5 7021-8 ####[facility] LABCLIA [id number] [place] [address] Erythrocyte distribution width (RBC) [Ratio] 19.4 % High 11.5-15.0 [facility] Comment on above: Order Comment: Speci men Type: BLOOD SPECIMENOrdering Facility: [facility] Address: [address] [place] [address] Performed By: #### 5 7021-8 ####[facility] LABCLIA [id number] [place] [address] Hematocrit (Bld) [Volume fraction] 33.0 % Low 39.0-51.0 [facility] Comment on above: Order Comment: Speci men Type: BLOOD SPECIMENOrdering Facility: [facility] Address: [address] [place] [address] Performed By: #### 5 7021-8 ####[facility] LABIA [id number] [place] [address] Hemoglobin (Bld) [Mass/Vol] 10.5 g/dL Low 13.0-17.0 [facility] Comment on above: Order Comment: Speci men Type: BLOOD SPECIMENOrdering Facility: [facility] Address: [address] [place] [address] Performed By: #### 5 7021-8 ####[facility] LABCLIA [id number] [place] [address] Immature granulocytes (Bld) [#/Vol] 0.03 10*3/uL Normal <0.10 [facility] Comment on above: Order Comment: Speci men Type: BLOOD SPECIMENOrdering Facility: [facility] Address: [address] [place] [address] Performed By: #### 5 7021-8 ####[facility] LABCLIA [id number] [place] [address] Immature granulocytes/100 WBC (Bld) 0.4 % Normal [facility] Comment on above: Order Comment: Speci men Type: BLOOD SPECIMENOrdering Facility: [facility] Address: [address] [place] [address] Performed By: #### 5 7021-8 ####[facility] LABCLIA [id number] [place] [address] Lymphocytes (Bld) [#/Vol] 1.47 10*3/uL Normal 1.00-4.00 [facility] Comment on above: Order Comment: Speci men Type: BLOOD SPECIMENOrdering Facility: [facility] Address: [address] [place] [address] Performed By: #### 5 7021-8 ####[facility] LABCLIA [id number] [place] [address] Lymphocytes/100 WBC (Bld) 19.8 % Normal [facility] Comment on above: Order Comment: Speci men Type: BLOOD SPECIMENOrdering Facility: [facility] [facility] Address: [address] [place] [address] Performed By: #### 5 7021-8 ####[facility] LABCLIA [id number] [place] [address] MCH (RBC) [Entitic mass] 32.5 pg Normal 26.0-34.0 [facility] Comment on above: Order Comment: Speci men Type: BLOOD SPECIMENOrdering Facility: [facility] Address: [address] [place] [address] Performed By: #### 5 7021-8 ####[facility] LABCLIA [id number] [place] [address] MCHC (RBC) [Mass/Vol] 31.8 g/dL Normal 30.5-36.0 [facility] Comment on above: Order Comment: Speci men Type: BLOOD SPECIMENOrdering Facility: [facility] Address: [address] [place] [address] Performed By: #### 5 7021-8 ####[facility] LABCLIA [id number] [place] [address] MCV (RBC) [Entitic vol] 102.2 fL High 80.0-100.0 [facility] Comment on above: Order Comment: Speci men Type: BLOOD SPECIMENOrdering Facility: [facility] Address: [address] [place] [address] Performed By: #### 5 7021-8 ####[facility] LABCLIA [id number] [place] [address] Monocytes (Bld) [#/Vol] 0.80 10*3/uL Normal <0.87 [facility] Comment on above: Order Comment: Speci men Type: BLOOD SPECIMENOrdering Facility: [facility] Address: [address] [place] [address] Performed By: #### 5 7021-8 ####[facility] LABCLIA [id number] [place] [address] Monocytes/100 WBC (Bld) 10.8 % Normal [facility] Comment on above: Order Comment: Speci men Type: BLOOD SPECIMENOrdering Facility: [facility] Address: [address] [place] [address] Performed By: #### 5 7021-8 ####[facility] LABCLIA [id number] [place] [address] Neutrophils (Bld) [#/Vol] 5.07 10*3/uL Normal 1.45-7.50 [facility] Comment on above: Order Comment: Speci men Type: BLOOD SPECIMENOrdering Facility: [facility] Address: [address] [place] [address] Performed By: #### 5 7021-8 ####[facility] LABCLIA [id number] [place] [address] Neutrophils/100 WBC (Bld) 68.2 % Normal [facility] Comment on above: Order Comment: Speci men Type: BLOOD SPECIMENOrdering Facility: [facility] Address: [address] [place] [address] Performed By: #### 5 7021-8 ####[facility] LABCLIA [id number] [place] [address] Nucleated RBC (Bld) [#/Vol] 10*3/uL Normal <0.01 [facility] Comment on above: Order Comment: Speci men Type: BLOOD SPECIMENOrdering Facility: [facility] Address: [address] [place] [address] Performed By: #### 5 7021-8 ####[facility] LABCLIA [id number] [place] [address] Nucleated RBC/100 WBC (Bld) [Ratio] 0.0 /100 WBC Normal [facility] Comment on above: Order Comment: Speci men Type: BLOOD SPECIMENOrdering Facility: [facility] Address: [address] [place] [address] Performed By: #### 5 7021-8 ####[facility] LABCLIA [id number] [place] [address] Platelet mean volume (Bld) [Entitic vol] 9.9 fL Normal 9.0-12.7 [facility] Comment on above: Order Comment: Speci men Type: BLOOD SPECIMENOrdering Facility: [facility] Address: [address] [place] [address] Performed By: #### 5 7021-8 ####[facility] LABCLIA [id number] [place] [address] Platelets (Bld) [#/Vol] 222 10*3/uL Normal 150-400 [facility] Comment on above: Order Comment: Speci men Type: BLOOD SPECIMENOrdering Facility: [facility] Address: [address] [place] [address] Performed By: #### 5 7021-8 ####[facility] LABCLIA [id number] [place] [address] RBC (Bld) [#/Vol] 3.23 10*6/uL Low 4.20-6.00 [facility] Comment on above: Order Comment: Speci men Type: BLOOD SPECIMENOrdering Facility: [facility] Address: [address] [place] [address] Performed By: #### 5 7021-8 ####[facility] LABCLIA [id number] [place] [id number] WBC (Bld) [#/Vol] 7.43 10*3/uL Normal 3.70-11.00 [facility] Comment on above: Order Comment: Speci men Type: BLOOD SPECIMENOrdering Facility: [facility] Address: [address] [place] [address] Performed By: #### 5 7021-8 ####[facility] LABCLIA [id number] [place] [address] CNOVSPon 05-24-2023 CNOVSP Normal [facility] Cancer Ag19-9 SerPl-aCncon 0 05-24-2023 Cancer Ag 19-9 Qn 1757.0 [arb'U]/mL High <36.0 [facility] Comment on above: Order Comment: Speci men Type: BLOOD SPECIMENOrdering Facility: [facility] Address: [address] [place] [address] Result Comment: [facility] er antigen 19-9 test is used as an aid in monitoring response to treatment or recurrence in patients with established pancreatic, hepatobiliary, or gastrointestinal malignancies. Clinical correlation is required.The CA 19-9 Antigen test was performed using the [employer] [place] [employer] DXI paramagnetic particle chemiluminescent immunoassay method. Results obtained with different assay methods or kits cannot be used interchangeably. Performed By: #### 2 4108-3 ####[facility] LABCLIA [id number] [place] [address] [place] Comprehensive metabolic 2000 panelon 05-24-2023 Albumin [Mass/Vol] 4.3 g/dL Normal 3.9-4.9 [facility] Comment on above: Order Comment: Speci men Type: BLOOD SPECIMENOrdering Facility: [facility] Address: [address] [place] [address] Performed By: #### 2 4323-8 ####[facility] LABCLIA [id number] [place] [address] ALP [Catalytic activity/Vol] 127 U/L High 38-113 [facility] Comment on above: Order Comment: Speci men Type: BLOOD SPECIMENOrdering Facility: [facility] Address: [address] [place] [address] Performed By: #### 2 4323-8 ####[facility] LABCLIA [id number] [place] [address] ALT [Catalytic activity/Vol] 22 U/L Normal 10-54 [facility] Comment on above: Order Comment: Speci men Type: BLOOD SPECIMENOrdering Facility: [facility] Address: [address] [place] [address] Performed By: #### 2 4323-8 ####[facility] LABCLIA [id number] [place] [address] Anion gap [Moles/Vol] 9 mmol/L Normal 9-18 [facility] Comment on above: Order Comment: Speci men Type: BLOOD SPECIMENOrdering Facility: [facility] Address: [address] [place] [address] Performed By: #### 2 4323-8 ####[facility] LABCLIA [id number] [place] [address] AST [Catalytic activity/Vol] 20 U/L Normal 14-40 [facility] Comment on above: Order Comment: Speci men Type: BLOOD SPECIMENOrdering Facility: [facility] Address: [address] [place] [address] Performed By: #### 2 4323-8 ####[facility] LABCLIA [id number] [place] [address] Bilirubin [Mass/Vol] 1.3 mg/dL Normal 0.2-1.3 [facility] Comment on above: Order Comment: Speci men Type: BLOOD SPECIMENOrdering Facility: [facility] Address: [address] [place] [address] Performed By: #### 2 4323-8 ####[facility] LABCLIA [id number] [place] [address] Calcium [Mass/Vol] 10.8 mg/dL High 8.5-10.2 [facility] Comment on above: Order Comment: Speci men Type: BLOOD SPECIMENOrdering Facility: [facility] Address: [address] [place] [address] Performed By: #### 2 4323-8 ####[facility] LABCLIA [id number] [place] [address] Chloride [Moles/Vol] 101 mmol/L Normal 97-105 [facility] Comment on above: Order Comment: Speci men Type: BLOOD SPECIMENOrdering Facility: [facility] Address: [address] [place] [address] Performed By: #### 2 4323-8 ####[facility] LABCLIA [id number] [place] [address] CO2 [Moles/Vol] 25 mmol/L Normal 22-30 [facility] Comment on above: Order Comment: Speci men Type: BLOOD SPECIMENOrdering Facility: [facility] Address: [address] [place] [address] Performed By: #### 2 4323-8 ####[facility] LABCLIA [id number] [place] [address] Creatinine [Mass/Vol] 0.84 mg/dL Normal 0.73-1.22 [facility] Comment on above: Order Comment: Speci men Type: BLOOD SPECIMENOrdering Facility: [facility] Address: [address] [place] [address] Performed By: #### 2 4323-8 ####[facility] LABCLIA [id number] [place] [address] Creatinine and Glomerular filtration rate.predicted panel (S/P/Bld) 93 mL/min/1.73m??? Normal >=60 [facility] Comment on above: Order Comment: Specmack men Type: BLOOD SPECIMENOrdering Facility: [facility] Address: [address] [place] [address] Result Comment: Kathy mated Glomerular Filtration Rate [...] actual GFR. Performed By: #### 2 4323-8 ####[facility] LABIA [id number] [place] [address] Glucose [Mass/Vol] 129 mg/dL High 74-99 [facility] Comment on above: Order Comment: Speci men Type: BLOOD SPECIMENOrdering Facility: [facility] Address: [address] [place] [address] Result Comment: The [place] [employer] (ADA) provides guidance for cutoff [...] Standards of Medical Care in Diabetes 2016, [place] [employer]. Diabetes Care. 2016.39(Suppl 1). Performed By: #### 2 4323-8 ####[facility] LABCLIA [id number] [place] [address] Potassium [Moles/Vol] 4.0 mmol/L Normal 3.7-5.1 [facility] Comment on above: Order Comment: Speci men Type: BLOOD SPECIMENOrdering Facility: [facility] Address: [address] [place] [address] Performed By: #### 2 4323-8 ####[facility] LABCLIA [id number] [place] [address] Protein [Mass/Vol] 7.2 g/dL Normal 6.3-8.0 [facility] Comment on above: Order Comment: Speci men Type: BLOOD SPECIMENOrdering Facility: [facility] Address: [address] [place] [address] Performed By: #### 2 4323-8 ####[facility] LABCLIA [id number] [place] [address] Sodium [Moles/Vol] 135 mmol/L Low 136-144 [facility] Comment on above: Order Comment: Speci men Type: BLOOD SPECIMENOrdering Facility: [facility] Address: [address] [place] [address] Performed By: #### 2 4323-8 ####[facility] LABCLIA [id number] [place] [address] Urea nitrogen [Mass/Vol] 20 mg/dL Normal 9-24 [facility] Comment on above: Order Comment: Speci men Type: BLOOD SPECIMENOrdering Facility: [facility] Address: [address] [place] [address] Performed By: #### 2 4323-8 ####[facility] LABCLIA [id number] [place] [address] CREATININE BLDon 05-18-2023 Creatinine [Mass/Vol] 0.80 mg/dL Normal 0.73-1.22 [facility] Comment on above: Order Comment: Speci men Type: BLOOD SPECIMENOrdering Facility: [facility] Address: [address] [place] [address] Performed By: #### C RET1 ####[facility] LABCLIA [id number] [place] [address] Creatinine and Glomerular filtration rate.predicted panel (S/P/Bld) 94 mL/min/1.73m??? Normal >=60 [facility] Comment on above: Order Comment: Speci men Type: BLOOD SPECIMENOrdering Facility: [facility] Address: [address] [place] [address] Result Comment: Kathy mated Glomerular Filtration Rate [...] actual GFR. Performed By: #### C RET1 ####[facility] LABCLIA [id number] [place] [address] CT ABD/PEL W IVCONon 023 CT ABD/PEL W IVCON Normal [facility] CT CHEST W IVCONon 3 CT CHEST W IVCON Normal [facility] CBC W Auto Differential pane l (Bld)on 05-12-2023 Basophils (Bld) [#/Vol] 0.03 10*3/uL Normal <0.11 [facility] Comment on above: Order Comment: Speci men Type: BLOOD SPECIMENOrdering Facility: [facility] Address: [address] [place] [address] Performed By: #### 5 7021-8 ####[facility] LABCLIA [id number] [place] [address] Basophils/100 WBC (Bld) 0.5 % Normal [facility] Comment on above: Order Comment: Speci men Type: BLOOD SPECIMENOrdering Facility: [facility] Address: [address] [place] [address] Performed By: #### 5 7021-8 ####[facility] LABCLIA [id number] [place] [address] Differential cell count method Nom (Bld) Auto Normal [facility] Comment on above: Order Comment: Speci men Type: BLOOD SPECIMENOrdering Facility: [facility] Address: [address] [place] [address] Performed By: #### 5 7021-8 ####[facility] LABCLIA [id number] [place] [address] Eosinophils (Bld) [#/Vol] 10*3/uL Normal <0.46 [facility] Comment on above: Order Comment: Speci men Type: BLOOD SPECIMENOrdering Facility: [facility] Address: [address] [place] [address] Performed By: #### 5 7021-8 ####[facility] LABCLIA [id number] [place] [address] Eosinophils/100 WBC (Bld) 0.4 % Normal [facility] Comment on above: Order Comment: Speci men Type: BLOOD SPECIMENOrdering Facility: [facility] Address: [address] [place] [address] Performed By: #### 5 7021-8 ####[facility] LABCLIA [id number] [place] [address] Erythrocyte distribution width (RBC) [Ratio] 17.2 % High 11.5-15.0 [facility] Comment on above: Order Comment: Speci men Type: BLOOD SPECIMENOrdering Facility: [facility] Address: [address] [place] [address] Performed By: #### 5 7021-8 ####[facility] LABCLIA [id number] [place] [address] Hematocrit (Bld) [Volume fraction] 29.8 % Low 39.0-51.0 [facility] Comment on above: Order Comment: Speci men Type: BLOOD SPECIMENOrdering Facility: [facility] Address: [address] [place] [address] Performed By: #### 5 7021-8 ####[facility] LABCLIA [id number] [place] [address] Hemoglobin (Bld) [Mass/Vol] 9.8 g/dL Low 13.0-17.0 [facility] Comment on above: Order Comment: Speci men Type: BLOOD SPECIMENOrdering Facility: [facility] Address: [address] [place] [address] Performed By: #### 5 7021-8 ####[facility] LABCLIA [id number] [place] [address] Immature granulocytes (Bld) [#/Vol] 10*3/uL Normal <0.10 [facility] Comment on above: Order Comment: Speci men Type: BLOOD SPECIMENOrdering Facility: [facility] Address: [address] [place] [address] Performed By: #### 5 7021-8 ####[facility] LABCLIA [id number] [place] [address] Immature granulocytes/100 WBC (Bld) 0.4 % Normal [facility] Comment on above: Order Comment: Speci men Type: BLOOD SPECIMENOrdering Facility: [facility] Address: [address] [place] [address] Performed By: #### 5 7021-8 ####[facility] LABCLIA [id number] [place] [address] Lymphocytes (Bld) [#/Vol] 1.83 10*3/uL Normal 1.00-4.00 [facility] Comment on above: Order Comment: Speci men Type: BLOOD SPECIMENOrdering Facility: [facility] Address: [address] [place] [address] Performed By: #### 5 7021-8 ####[facility] LABCLIA [id number] [place] [address] Lymphocytes/100 WBC (Bld) 33.0 % Normal [facility] Comment on above: Order Comment: Speci men Type: BLOOD SPECIMENOrdering Facility: [facility] Address: [address] [place] [address] Performed By: #### 5 7021-8 ####[facility] LABCLIA [id number] [place] [address] MCH (RBC) [Entitic mass] 31.5 pg Normal 26.0-34.0 [facility] Comment on above: Order Comment: Speci men Type: BLOOD SPECIMENOrdering Facility: [facility] Address: [address] [place] [address] Performed By: #### 5 7021-8 ####[facility] LABCLIA [id number] [place] [address] MCHC (RBC) [Mass/Vol] 32.9 g/dL Normal 30.5-36.0 [facility] Comment on above: Order Comment: Speci men Type: BLOOD SPECIMENOrdering Facility: [facility] Address: [address] [place] [address] Performed By: #### 5 7021-8 ####[facility] LABCLIA [id number] [place] [address] MCV (RBC) [Entitic vol] 95.8 fL Normal 80.0-100.0 [facility] Comment on above: Order Comment: Speci men Type: BLOOD SPECIMENOrdering Facility: [facility] Address: [address] [place] [address] Performed By: #### 5 7021-8 ####[facility] LABCLIA [id number] [place] [address] Monocytes (Bld) [#/Vol] 0.40 10*3/uL Normal <0.87 [facility] Comment on above: Order Comment: Speci men Type: BLOOD SPECIMENOrdering Facility: [facility] Address: [address] [place] [address] Performed By: #### 5 7021-8 ####[facility] LABCLIA [id number] [place] [address] Monocytes/100 WBC (Bld) 7.2 % Normal [facility] Comment on above: Order Comment: Speci men Type: BLOOD SPECIMENOrdering Facility: [facility] Address: [address] [place] [address] Performed By: #### 5 7021-8 ####[facility] LABCLIA [id number] [place] [address] Neutrophils (Bld) [#/Vol] 3.24 10*3/uL Normal 1.45-7.50 [facility] Comment on above: Order Comment: Speci men Type: BLOOD SPECIMENOrdering Facility: [facility] Address: [address] [place] [address] Performed By: #### 5 7021-8 ####[facility] LABCLIA [id number] [place] [address] Neutrophils/100 WBC (Bld) 58.5 % Normal [facility] Comment on above: Order Comment: Speci men Type: BLOOD SPECIMENOrdering Facility: [facility] Address: [address] [place] [address] Performed By: #### 5 7021-8 ####[facility] LABCLIA [id number] [place] [address] Nucleated RBC (Bld) [#/Vol] 10*3/uL Normal <0.01 [facility] Comment on above: Order Comment: Speci men Type: BLOOD SPECIMENOrdering Facility: [facility] Address: [address] [place] [address] Performed By: #### 5 7021-8 ####[facility] LABCLIA [id number] [place] [address] Nucleated RBC/100 WBC (Bld) [Ratio] 0.0 /100 WBC Normal [facility] Comment on above: Order Comment: Speci men Type: BLOOD SPECIMENOrdering Facility: [facility] Address: [address] [place] [address] Performed By: #### 5 7021-8 ####[facility] LABCLIA [id number] [place] [address] Platelet mean volume (Bld) [Entitic vol] 10.2 fL Normal 9.0-12.7 [facility] Comment on above: Order Comment: Speci men Type: BLOOD SPECIMENOrdering Facility: [facility] Address: [address] [place] [address] Performed By: #### 5 7021-8 ####[facility] LABIA [id number] [place] [address] Platelets (Bld) [#/Vol] 186 10*3/uL Normal 150-400 [facility] Comment on above: Order Comment: Speci men Type: BLOOD SPECIMENOrdering Facility: [facility] Address: [address] [place] [address] Performed By: #### 5 7021-8 ####[facility] LABIA [id number] [place] [address] RBC (Bld) [#/Vol] 3.11 10*6/uL Low 4.20-6.00 [facility] Comment on above: Order Comment: Speci men Type: BLOOD SPECIMENOrdering Facility: [facility] Address: [address] [place] [address] Performed By: #### 5 7021-8 ####[facility] LABIA [id number] [place] [address] WBC (Bld) [#/Vol] 5.54 10*3/uL Normal 3.70-11.00 [facility] Comment on above: Order Comment: Speci men Type: BLOOD SPECIMENOrdering Facility: [facility] Address: [address] [place] [address] Performed By: #### 5 7021-8 ####[facility] LABIA [id number] [place] [address] CNOVSPon 05-12-2023 CNOVSP Normal [facility] metabolic 2000 panelon 05-12-2023 Albumin [Mass/Vol] 4.1 g/dL Normal 3.9-4.9 [facility] Comment on above: Order Comment: Speci men Type: BLOOD SPECIMENOrdering Facility: [facility] Address: [address] [place] [address] Performed By: #### 2 4323-8 ####[facility] LABCLIA [id number] [place] [address] ALP [Catalytic activity/Vol] 116 U/L High 38-113 [facility] Comment on above: Order Comment: Speci men Type: BLOOD SPECIMENOrdering Facility: [facility] Address: [address] [place] [address] Performed By: #### 2 4323-8 ####[facility] LABCLIA [id number] [place] [address] ALT [Catalytic activity/Vol] 32 U/L Normal 10-54 [facility] Comment on above: Order Comment: Speci men Type: BLOOD SPECIMENOrdering Facility: [facility] Address: [address] [place] [address] Performed By: #### 2 4323-8 ####[facility] LABCLIA [id number] [place] [address] Anion gap [Moles/Vol] 8 mmol/L Low 9-18 [facility] Comment on above: Order Comment: Speci men Type: BLOOD SPECIMENOrdering Facility: [facility] Address: [address] [place] [address] Performed By: #### 2 4323-8 ####[facility] LABCLIA [id number] [place] [address] AST [Catalytic activity/Vol] 24 U/L Normal 14-40 [facility] Comment on above: Order Comment: Speci men Type: BLOOD SPECIMENOrdering Facility: [facility] Address: [address] [place] [address] Performed By: #### 2 4323-8 ####[facility] LABCLIA [id number] [place] [address] Bilirubin [Mass/Vol] 1.2 mg/dL Normal 0.2-1.3 [facility] Comment on above: Order Comment: Speci men Type: BLOOD SPECIMENOrdering Facility: [facility] Address: [address] [place] [address] Performed By: #### 2 4323-8 ####[facility] LABCLIA [id number] [place] [address] Calcium [Mass/Vol] 10.9 mg/dL High 8.5-10.2 [facility] Comment on above: Order Comment: Speci men Type: BLOOD SPECIMENOrdering Facility: [facility] Address: [address] [place] [address] Performed By: #### 2 4323-8 ####[facility] LABCLIA [id number] [place] [address] Chloride [Moles/Vol] 104 mmol/L Normal 97-105 [facility] Comment on above: Order Comment: Speci men Type: BLOOD SPECIMENOrdering Facility: [facility] Address: [address] [place] [address] Performed By: #### 2 4323-8 ####[facility] LABCLIA [id number] [place] [address] CO2 [Moles/Vol] 26 mmol/L Normal 22-30 [facility] Comment on above: Order Comment: Speci men Type: BLOOD SPECIMENOrdering Facility: [facility] Address: [address] [place] [address] Performed By: #### 2 4323-8 ####[facility] LABCLIA [id number] [place] [address] Creatinine [Mass/Vol] 0.75 mg/dL Normal 0.73-1.22 [facility] Comment on above: Order Comment: Speci men Type: BLOOD SPECIMENOrdering Facility: [facility] Address: [address] [place] [address] Performed By: #### 2 4323-8 ####[facility] LABCLIA [id number] [place] [address] Creatinine and Glomerular filtration rate.predicted panel (S/P/Bld) 96 mL/min/1.73m??? Normal >=60 [facility] Comment on above: Order Comment: Speci men Type: BLOOD SPECIMENOrdering Facility: [facility] Address: [address] [place] [address] Result Comment: Kathy mated Glomerular Filtration Rate [...] actual GFR. Performed By: #### 2 4323-8 ####[facility] LABCLIA [id number] [place] [address] Glucose [Mass/Vol] 152 mg/dL High 74-99 [facility] Comment on above: Order Comment: Rajanii luis eduardo Type: BLOOD SPECIMENOrdering Facility: [facility] Address: [address] [place] [address] Result Comment: The [place] [employer] (ADA) provides guidance for cutoff [...] Standards of Medical Care in Diabetes 2016, [place] [employer]. Diabetes Care. 2016.39(Suppl 1). Performed By: #### 2 4323-8 ####[facility] LABCLIA [id number] [place] [address] Potassium [Moles/Vol] 4.1 mmol/L Normal 3.7-5.1 [facility] Comment on above: Order Comment: Speci men Type: BLOOD SPECIMENOrdering Facility: [facility] Address: [address] [place] [address] Performed By: #### 2 4323-8 ####[facility] LABCLIA [id number] [place] [address] Protein [Mass/Vol] 7.1 g/dL Normal 6.3-8.0 [facility] Comment on above: Order Comment: Speci men Type: BLOOD SPECIMENOrdering [facility] Address: [address] [place] [address] Performed By: #### 2 4323-8 ####[facility] LABCLIA [id number] [place] [address] Sodium [Moles/Vol] 138 mmol/L Normal 136-144 [facility] Comment on above: Order Comment: Speci men Type: BLOOD SPECIMENOrdering Facility: [facility] Address: [address] [place] [address] Performed By: #### 2 4323-8 ####[facility] LABCLIA [id number] [place] [address] Urea nitrogen [Mass/Vol] 16 mg/dL Normal 9-24 [facility] Comment on above: Order Comment: Speci men Type: BLOOD SPECIMENOrdering Facility: [facility] Address: [address] [place] [address] Performed By: #### 2 4323-8 ####[facility] LABCLIA [id number] [place] [address] CBC W Auto Differential pane l (Bld)on 05-05-2023 Basophils (Bld) [#/Vol] 0.05 10*3/uL <0.11 k/uL [facility] Basophils (Bld) [#/Vol] 0.05 10*3/uL Normal <0.11 [facility] Comment on above: Order Comment: Speci men Type: BLOOD SPECIMENOrdering Facility: [facility] Address: [address] [place] [address] Performed By: #### 5 7021-8 ####[facility] LABCLIA [id number] [place] [address] Basophils/100 WBC (Bld) 0.3 % [facility] Basophils/100 WBC (Bld) 0.3 % Normal [facility] Comment on above: Order Comment: Speci men Type: BLOOD SPECIMENOrdering Facility: [facility] Address: [address] [place] [address] Performed By: #### 5 7021-8 ####[facility] LABIA [id number] [place] [address] Differential cell count method Nom (Bld) Auto [facility] Differential cell count method Nom (Bld) Auto Normal [facility] Comment on above: Order Comment: Speci men Type: BLOOD SPECIMENOrdering Facility: [facility] Address: [address] [place] [address] Performed By: #### 5 7021-8 ####[facility] LABCLIA [id number] [place] [address] Eosinophils (Bld) [#/Vol] 0.04 10*3/uL <0.46 k/uL [facility] Eosinophils (Bld) [#/Vol] 0.04 10*3/uL Normal <0.46 [facility] Comment on above: Order Comment: Speci men Type: BLOOD SPECIMENOrdering Facility: [facility] Address: [address] [place] [address] Performed By: #### 5 7021-8 ####[facility] LABCLIA [id number] [place] [address] Eosinophils/100 WBC (Bld) 0.3 % [facility] Eosinophils/100 WBC (Bld) 0.3 % Normal [facility] Comment on above: Order Comment: Speci men Type: BLOOD SPECIMENOrdering Facility: [facility] Address: [address] [id number] Performed By: #### 5 7021-8 ####[facility] LABIA [id number] [place] [address] Erythrocyte distribution width (RBC) [Ratio] 17.2 % High 11.5 - 15.0 % [facility] Erythrocyte distribution width (RBC) [Ratio] 17.2 % High 11.5-15.0 [facility] Comment on above: Order Comment: Speci men Type: BLOOD SPECIMENOrdering Facility: [facility] Address: [address] [place] [address] Performed By: #### 5 7021-8 ####[facility] LABIA [id number] [place] [address] Hematocrit (Bld) [Volume fraction] 36.8 % Low 39.0 - 51.0 % [facility] Hematocrit (Bld) [Volume fraction] 36.8 % Low 39.0-51.0 [facility] Comment on above: Order Comment: Speci men Type: BLOOD SPECIMENOrdering Facility: [facility] Address: [address] [place] [address] Performed By: #### 5 7021-8 ####[facility] LABIA [id number] [place] [address] Hemoglobin (Bld) [Mass/Vol] 12.0 g/dL Low 13.0 - 17.0 g/dL [facility] Hemoglobin (Bld) [Mass/Vol] 12.0 g/dL Low 13.0-17.0 [facility] Comment on above: Order Comment: Speci men Type: BLOOD SPECIMENOrdering Facility: [facility] Address: [address] [place] [address] Performed By: #### 5 7021-8 ####[facility] LABIA [id number] [place] [address] Immature granulocytes (Bld) [#/Vol] 0.07 10*3/uL <0.10 k/uL [facility] Immature granulocytes (Bld) [#/Vol] 0.07 10*3/uL Normal <0.10 [facility] Comment on above: Order Comment: Speci men Type: BLOOD SPECIMENOrdering Facility: [facility] Address: [address] [place] [address] Performed By: #### 5 7021-8 ####[facility] LABCLIA [id number] [place] [address] Immature granulocytes/100 WBC (Bld) 0.5 % [facility] Immature granulocytes/100 WBC (Bld) 0.5 % Normal [facility] Comment on above: Order Comment: Speci men Type: BLOOD SPECIMENOrdering Facility: [facility] Address: [address] [place] [address] Performed By: #### 5 7021-8 ####[facility] LABCLIA [id number] [place] [address] Lymphocytes (Bld) [#/Vol] 2.10 10*3/uL 1.00 - 4.00 k/uL [facility] Lymphocytes (Bld) [#/Vol] 2.10 10*3/uL Normal 1.00-4.00 [facility] Comment on above: Order Comment: Speci men Type: BLOOD SPECIMENOrdering Facility: [facility] Address: [address] [place] [address] Performed By: #### 5 7021-8 ####[facility] LABCLIA [id number] [place] [address] Lymphocytes/100 WBC (Bld) 14.4 % [facility] Lymphocytes/100 WBC (Bld) 14.4 % Normal [facility] Comment on above: Order Comment: Speci men Type: BLOOD SPECIMENOrdering Facility: [facility] Address: [address] [place] [address] Performed By: #### 5 7021-8 ####[facility] LABCLIA [id number] [place] [address] MCH (RBC) [Entitic mass] 31.4 pg 26.0 - 34.0 pg [facility] MCH (RBC) [Entitic mass] 31.4 pg Normal 26.0-34.0 [facility] Comment on above: Order Comment: Speci men Type: BLOOD SPECIMENOrdering Facility: [facility] Address: [address] [place] [address] Performed By: #### 5 7021-8 ####[facility] LABCLIA [id number] [place] [address] MCHC (RBC) [Mass/Vol] 32.6 g/dL 30.5 - 36.0 g/dL [facility] MCHC (RBC) [Mass/Vol] 32.6 g/dL Normal 30.5-36.0 [facility] Comment on above: Order Comment: Speci men Type: BLOOD SPECIMENOrdering Facility: [facility] Address: [address] [place] [address] Performed By: #### 5 7021-8 ####[facility] LABCLIA [id number] [place] [address] MCV (RBC) [Entitic vol] 96.3 fL 80.0 - 100.0 fL [facility] MCV (RBC) [Entitic vol] 96.3 fL Normal 80.0-100.0 [facility] Comment on above: Order Comment: Speci men Type: BLOOD SPECIMENOrdering Facility: [facility] Address: [address] [place] [address] Performed By: #### 5 7021-8 ####[facility] LABIA [id number] [place] [address] Monocytes (Bld) [#/Vol] 1.12 10*3/uL High <0.87 k/uL [facility] Monocytes (Bld) [#/Vol] 1.12 10*3/uL High <0.87 [facility] Comment on above: Order Comment: Speci men Type: BLOOD SPECIMENOrdering Facility: [facility] Address: [address] [place] [address] Performed By: #### 5 7021-8 ####[facility] LABCLIA [id number] [place] [address] Monocytes/100 WBC (Bld) 7.7 % [facility] Monocytes/100 WBC (Bld) 7.7 % Normal [facility] Comment on above: Order Comment: Speci men Type: BLOOD SPECIMENOrdering Facility: [facility] Address: [address] [place] [address] Performed By: #### 5 7021-8 ####[facility] LABCL[facility] [id number] [place] [address] Neutrophils (Bld) [#/Vol] 11.22 10*3/uL High 1.45 - 7.50 k/uL [facility] Neutrophils (Bld) [#/Vol] 11.22 10*3/uL High 1.45-7.50 [facility] Comment on above: Order Comment: Speci men Type: BLOOD SPECIMENOrdering Facility: [facility] Address: [address] [place] [address] Performed By: #### 5 7021-8 ####[facility] LABCLIA [id number] [place] [address] Neutrophils/100 WBC (Bld) 76.8 % [facility] Neutrophils/100 WBC (Bld) 76.8 % Normal [facility] Comment on above: Order Comment: Speci men Type: BLOOD SPECIMENOrdering Facility: [facility] Address: [address] [place] [address] Performed By: #### 5 7021-8 ####[facility] LABCLIA [id number] [place] [address] Nucleated RBC (Bld) [#/Vol] <0.01 k/uL [facility] Nucleated RBC (Bld) [#/Vol] 10*3/uL Normal <0.01 [facility] Comment on above: Order Comment: Speci men Type: BLOOD SPECIMENOrdering Facility: [facility] Address: [address] [place] [address] Performed By: #### 5 7021-8 ####[facility] LABCLIA [id number] [place] [address] Nucleated RBC/100 WBC (Bld) [Ratio] 0.0 /100 WBC [facility] Nucleated RBC/100 WBC (Bld) [Ratio] 0.0 /100 WBC Normal [facility] Comment on above: Order Comment: Speci men Type: BLOOD SPECIMENOrdering Facility: [facility] Address: [address] [place] [address] Performed By: #### 5 7021-8 ####[facility] LABCLIA [id number] [place] [address] Platelet mean volume (Bld) [Entitic vol] 10.2 fL 9.0 - 12.7 fL [facility] Platelet mean volume (Bld) [Entitic vol] 10.2 fL Normal 9.0-12.7 [facility] Comment on above: Order Comment: Speci men Type: BLOOD SPECIMENOrdering Facility: [facility] Address: [address] [place] [address] Performed By: #### 5 7021-8 ####[facility] LABCLIA [id number] [place] [address] Platelets (Bld) [#/Vol] 376 10*3/uL 150 - 400 k/uL [facility] Platelets (Bld) [#/Vol] 376 10*3/uL Normal 150-400 [facility] Comment on above: Order Comment: Speci men Type: BLOOD SPECIMENOrdering Facility: [facility] Address: [address] [place] [address] Performed By: #### 5 7021-8 ####[facility] LABCLIA [id number] [place] [address] RBC (Bld) [#/Vol] 3.82 10*6/uL Low 4.20 - 6.0 0 m/uL [facility] RBC (Bld) [#/Vol] 3.82 10*6/uL Low 4.20-6.00 [facility] Comment on above: Order Comment: Speci men Type: BLOOD SPECIMENOrdering Facility: [facility] Address: [address] [place] [address] Performed By: #### 5 7021-8 ####[facility] LABCLIA [id number] [place] [address] WBC (Bld) [#/Vol] 14.60 10*3/uL High 3.70 - 11.00 k/uL [facility] WBC (Bld) [#/Vol] 14.60 10*3/uL High 3.70-11.00 [facility] Comment on above: Order Comment: Speci men Type: BLOOD SPECIMENOrdering Facility: [facility] Address: [address] [place] [address] Performed By: #### 5 7021-8 ####[facility] LABCLIA [id number] [place] [address] CNOVSPon 05-05-2023 CNOVSP Normal [facility] Cancer Ag19-9 SerPl-aCncon 1 07-06-2022 Cancer Ag 19-9 Qn 2059.0 [arb'U]/mL High <36.0 [facility] Comment on above: Order Comment: Speci men Type: BLOOD SPECIMENOrdering Facility: [facility] Address: [address] [place] [address] Result Comment: [facility] er antigen 19-9 test is used as an aid in monitoring response to treatment or recurrence in patients with established pancreatic, hepatobiliary, or gastrointestinal malignancies. Clinical correlation is required.The CA 19-9 Antigen test was performed using the [employer] DXI paramagnetic particle chemiluminescent immunoassay method. Results obtained with different assay methods or kits cannot be used interchangeably. Performed By: #### 2 4108-3 ####[facility] LABCLIA [id number] [place] [address] [place] Comprehensive metabolic 2000 panelon 05-05-2023 Albumin [Mass/Vol] 4.3 g/dL 3.9 - 4.9 g/dL [facility] Albumin [Mass/Vol] 4.3 g/dL Normal 3.9-4.9 [facility] Comment on above: Order Comment: Speci men Type: BLOOD SPECIMENOrdering Facility: [facility] Address: [address] [place] [address] Performed By: #### 2 4323-8 ####[facility] LABCLIA [id number] [place] [address] ALP [Catalytic activity/Vol] 131 U/L High 38 - 113 U/L [facility] ALP [Catalytic activity/Vol] 131 U/L High 38-113 [facility] Comment on above: Order Comment: Speci men Type: BLOOD SPECIMENOrdering Facility: [facility] Address: [address] [place] [address] Performed By: #### 2 4323-8 ####[facility] LABIA [id number] [place] [address] ALT [Catalytic activity/Vol] 26 U/L 10 - 54 U/L [facility] ALT [Catalytic activity/Vol] 26 U/L Normal 10-54 [facility] Comment on above: Order Comment: Speci men Type: BLOOD SPECIMENOrdering Facility: [facility] Address: [address] [place] [address] Performed By: #### 2 4323-8 ####[facility] LABIA [id number] [place] [address] Anion gap [Moles/Vol] 10 mmol/L 9 - 18 mmol/L [facility] Anion gap [Moles/Vol] 10 mmol/L Normal 9-18 [facility] Comment on above: Order Comment: Speci men Type: BLOOD SPECIMENOrdering Facility: [facility] Address: [address] [place] [address] Performed By: #### 2 4323-8 ####[facility] LABCLIA [id number] [place] [address] AST [Catalytic activity/Vol] 28 U/L 14 - 40 U/L [facility] AST [Catalytic activity/Vol] 28 U/L Normal 14-40 [facility] Comment on above: Order Comment: Speci men Type: BLOOD SPECIMENOrdering Facility: [facility] Address: [address] [place] [address] Performed By: #### 2 4323-8 ####[facility] LABCLIA [id number] [place] [address] Bilirubin [Mass/Vol] 1.3 mg/dL 0.2 - 1 .3 mg/dL [facility] Bilirubin [Mass/Vol] 1.3 mg/dL Normal 0.2-1.3 [facility] Comment on above: Order Comment: Speci men Type: BLOOD SPECIMENOrdering Facility: [facility] Address: [address] [place] [address] Performed By: #### 2 4323-8 ####[facility] LABCLIA [id number] [place] [address] Calcium [Mass/Vol] 11.1 mg/dL High 8.5 - 10. 2 mg/dL [facility] Calcium [Mass/Vol] 11.1 mg/dL High 8.5-10.2 [facility] Comment on above: Order Comment: Speci men Type: BLOOD SPECIMENOrdering Facility: [facility] Address: [address] [place] [address] Performed By: #### 2 4323-8 ####[facility] LABCLIA [id number] [place] [address] Chloride [Moles/Vol] 101 mmol/L 97 - 10 5 mmol/L [facility] Chloride [Moles/Vol] 101 mmol/L Normal 97-105 [facility] Comment on above: Order Comment: Speci men Type: BLOOD SPECIMENOrdering Facility: [facility] Address: [address] [place] [address] Performed By: #### 2 4323-8 ####[facility] LABCLIA [id number] [place] [address] CO2 [Moles/Vol] 24 mmol/L 22 - 30 mmol/L [facility] CO2 [Moles/Vol] 24 mmol/L Normal 22-30 [facility] Comment on above: Order Comment: Speci men Type: BLOOD SPECIMENOrdering Facility: [facility] Address: [address] [place] [address] Performed By: #### 2 4323-8 ####[facility] LABCLIA [id number] [place] [address] Creatinine [Mass/Vol] 0.87 mg/dL 0.73 - 1.22 mg/dL [facility] Creatinine [Mass/Vol] 0.87 mg/dL Normal 0.73-1.22 [facility] Comment on above: Order Comment: Speci men Type: BLOOD SPECIMENOrdering Facility: [facility] Address: [address] [place] [address] Performed By: #### 2 4323-8 ####[facility] LABCLIA [id number] [place] [address] Creatinine and Glomerular filtration rate.predicted panel (S/P/Bld) 92 mL/min/1.73m??? Normal >=60 [facility] Comment on above: Order Comment: Speci men Type: BLOOD SPECIMENOrdering Facility: [facility] Address: [address] [place] [address] Result Comment: Kathy mated Glomerular Filtration Rate [...] actual GFR. Performed By: #### 2 4323-8 ####[facility] LABCLIA [id number] [place] [address] Estimated Glomerular Filtration Rate 92 mL/min/1.73m >=60 mL/min/1.73 m [facility] Glucose [Mass/Vol] 154 mg/dL High 74 - 99 mg/dL [facility] Glucose [Mass/Vol] 154 mg/dL High 74-99 [facility] Comment on above: Order Comment: Speci men Type: BLOOD SPECIMENOrdering Facility: [facility] Address: [address] [place] [address] Result Comment: The [place] [employer] (ADA) provides guidance for cutoff [...] Standards of Medical Care in Diabetes 2016, [place] [employer]. Diabetes Care. 2016.39(Suppl 1). Performed By: #### 2 4323-8 ####[facility] LABCLIA [id number] [place] [address] Potassium [Moles/Vol] 4.3 mmol/L 3.7 - 5.1 mmol/L [facility] Potassium [Moles/Vol] 4.3 mmol/L Normal 3.7-5.1 [facility] Comment on above: Order Comment: Speci men Type: BLOOD SPECIMENOrdering Facility: [facility] Address: [address] [place] [address] Performed By: #### 2 4323-8 ####[facility] LABCLIA [id number] [place] [address] Protein [Mass/Vol] 7.5 g/dL 6.3 - 8.0 g/dL [facility] Protein [Mass/Vol] 7.5 g/dL Normal 6.3-8.0 [facility] Comment on above: Order Comment: Speci men Type: BLOOD SPECIMENOrdering Facility: [facility] Address: [address] [place], [place] [address] Performed By: #### 2 4323-8 ####[facility] LABCLIA [id number] [place] [address] Sodium [Moles/Vol] 135 mmol/L Low 136 - 144 mmol/L [facility] Sodium [Moles/Vol] 135 mmol/L Low 136-144 [facility] Comment on above: Order Comment: Speci men Type: BLOOD SPECIMENOrdering Facility: [facility] Address: [address] [place] [address] Performed By: #### 2 4323-8 ####[facility] LABCLIA [id number] [place] [address] Urea nitrogen [Mass/Vol] 19 mg/dL 9 - 24 mg/dL [facility] Urea nitrogen [Mass/Vol] 19 mg/dL Normal 9-24 [facility] Comment on above: Order Comment: Speci men Type: BLOOD SPECIMENOrdering Facility: [facility] Address: [address] [place] [address] Performed By: #### 2 4323-8 ####[facility] LABIA [id number] [place] [address] CNPNon 2023 CNPN Normal [facility] CNPNon 04-07-2023 CNPN Normal [facility] CBC W Auto Differential pane l (Bld)on 04-05-2023 Basophils (Bld) [#/Vol] 0.05 10*3/uL <0.11 k/uL [facility] Basophils (Bld) [#/Vol] 0.05 10*3/uL Normal <0.11 [facility] Comment on above: Order Comment: Speci men Type: BLOOD SPECIMENOrdering Facility: [facility] Address: [address] [place] [address] Performed By: #### 5 7021-8 ####[facility] LABIA [id number] [place] [address] Basophils/100 WBC (Bld) 0.5 % [facility] Basophils/100 WBC (Bld) 0.5 % Normal [facility] Comment on above: Order Comment: Speci men Type: BLOOD SPECIMENOrdering Facility: [facility] Address: [address] [place] [address] Performed By: #### 5 7021-8 ####[facility] LABCLIA [id number] [place] [address] Differential cell count method Nom (Bld) Auto [facility] Differential cell count method Nom (Bld) Auto Normal [facility] Comment on above: Order Comment: Speci men Type: BLOOD SPECIMENOrdering Facility: [facility] Address: [address] [place] [address] Performed By: #### 5 7021-8 ####[facility] LABCLIA [id number] [place] [address] Eosinophils (Bld) [#/Vol] <0.46 k/uL [facility] Eosinophils (Bld) [#/Vol] 10*3/uL Normal <0.46 [facility] Comment on above: Order Comment: Speci men Type: BLOOD SPECIMENOrdering Facility: [facility] Address: [address] [place] [address] Performed By: #### 5 7021-8 ####[facility] LABIA [id number] [place] [address] Eosinophils/100 WBC (Bld) 0.2 % [facility] Eosinophils/100 WBC (Bld) 0.2 % Normal [facility] Comment on above: Order Comment: Speci men Type: BLOOD SPECIMENOrdering Facility: [facility] Address: [address] [place] [address] Performed By: #### 5 7021-8 ####[facility] LABIA [id number] [place] [address] Erythrocyte distribution width (RBC) [Ratio] 15.3 % High 11.5 - 15.0 % [facility] Erythrocyte distribution width (RBC) [Ratio] 15.3 % High 11.5-15.0 [facility] Comment on above: Order Comment: Speci men Type: BLOOD SPECIMENOrdering Facility: [facility] Address: [address] [place] [address] Performed By: #### 5 7021-8 ####[facility] LABCLIA [id number] [place] [address] Hematocrit (Bld) [Volume fraction] 30.3 % Low 39.0 - 51.0 % [facility] Hematocrit (Bld) [Volume fraction] 30.3 % Low 39.0-51.0 [facility] Comment on above: Order Comment: Speci men Type: BLOOD SPECIMENOrdering Facility: [facility] Address: [address] [place] [address] Performed By: #### 5 7021-8 ####[facility] LABCLIA [id number] [place] [address] Hemoglobin (Bld) [Mass/Vol] 10.0 g/dL Low 13.0 - 17.0 g/dL [facility] Hemoglobin (Bld) [Mass/Vol] 10.0 g/dL Low 13.0-17.0 [facility] Comment on above: Order Comment: Speci men Type: BLOOD SPECIMENOrdering Facility: [facility] Address: [address] [place] [address] Performed By: #### 5 7021-8 ####[facility] LABIA [id number] [place] [address] Immature granulocytes (Bld) [#/Vol] 0.04 10*3/uL <0.10 k/uL [facility] Immature granulocytes (Bld) [#/Vol] 0.04 10*3/uL Normal <0.10 [facility] Comment on above: Order Comment: Speci men Type: BLOOD SPECIMENOrdering Facility: [facility] Address: [address] [place] [address] Performed By: #### 5 7021-8 ####[facility] LABIA [id number] [place] [address] Immature granulocytes/100 WBC (Bld) 0.4 % [facility] Immature granulocytes/100 WBC (Bld) 0.4 % Normal [facility] Comment on above: Order Comment: Speci men Type: BLOOD SPECIMENOrdering Facility: [facility] Address: [address] [id number] Performed By: #### 5 7021-8 ####[facility] LABCLIA [id number] [place] [address] Lymphocytes (Bld) [#/Vol] 1.63 10*3/uL 1.00 - 4.00 k/uL [facility] Lymphocytes (Bld) [#/Vol] 1.63 10*3/uL Normal 1.00-4.00 [facility] Comment on above: Order Comment: Speci men Type: BLOOD SPECIMENOrdering Facility: [facility] Address: [address] [place] [address] Performed By: #### 5 7021-8 ####[facility] LABIA [id number] [place] [address] Lymphocytes/100 WBC (Bld) 15.5 % [facility] Lymphocytes/100 WBC (Bld) 15.5 % Normal [facility] Comment on above: Order Comment: Speci men Type: BLOOD SPECIMENOrdering Facility: [facility] Address: [address] [place] [address] Performed By: #### 5 7021-8 ####[facility] LABIA [id number] [place] [address] MCH (RBC) [Entitic mass] 32.3 pg 26.0 - 34.0 pg [facility] MCH (RBC) [Entitic mass] 32.3 pg Normal 26.0-34.0 [facility] Comment on above: Order Comment: Speci men Type: BLOOD SPECIMENOrdering Facility: [facility] Address: [address] [place] [address] Performed By: #### 5 7021-8 ####[facility] LABIA [id number] [place] [address] MCHC (RBC) [Mass/Vol] 33.0 g/dL 30.5 - 36.0 g/dL [facility] MCHC (RBC) [Mass/Vol] 33.0 g/dL Normal 30.5-36.0 [facility] Comment on above: Order Comment: Speci men Type: BLOOD SPECIMENOrdering Facility: [facility] [facility] Address: [address] [place] [address] Performed By: #### 5 7021-8 ####[facility] LABCLIA [id number] [place] [address] MCV (RBC) [Entitic vol] 97.7 fL 80.0 - 100.0 fL [facility] MCV (RBC) [Entitic vol] 97.7 fL Normal 80.0-100.0 [facility] Comment on above: Order Comment: Speci men Type: BLOOD SPECIMENOrdering Facility: [facility] Address: [address] [place] [address] Performed By: #### 5 7021-8 ####[facility] LABCLIA [id number] [place] [address] Monocytes (Bld) [#/Vol] 0.21 10*3/uL <0.87 k/uL [facility] Monocytes (Bld) [#/Vol] 0.21 10*3/uL Normal <0.87 [facility] Comment on above: Order Comment: Speci men Type: BLOOD SPECIMENOrdering Facility: [facility] Address: [address] [place] [address] Performed By: #### 5 7021-8 ####[facility] LABCLIA [id number] [place] [address] Monocytes/100 WBC (Bld) 2.0 % [facility] Monocytes/100 WBC (Bld) 2.0 % Normal [facility] Comment on above: Order Comment: Speci men Type: BLOOD SPECIMENOrdering Facility: [facility] Address: [address] [place] [address] Performed By: #### 5 7021-8 ####[facility] LABCLIA [id number] [place] [address] Neutrophils (Bld) [#/Vol] 8.60 10*3/uL High 1.45 - 7.50 k/uL [facility] Neutrophils (Bld) [#/Vol] 8.60 10*3/uL High 1.45-7.50 [facility] Comment on above: Order Comment: Speci men Type: BLOOD SPECIMENOrdering Facility: [facility] Address: [address] [place] [address] Performed By: #### 5 7021-8 ####[facility] LABIA [id number] [place] [address] Neutrophils/100 WBC (Bld) 81.4 % [facility] Neutrophils/100 WBC (Bld) 81.4 % Normal [facility] Comment on above: Order Comment: Speci men Type: BLOOD SPECIMENOrdering Facility: [facility] Address: [address] [place] [address] Performed By: #### 5 7021-8 ####[facility] [id number] [place] [id number] Nucleated RBC (Bld) [#/Vol] <0.01 k/uL [facility] Nucleated RBC (Bld) [#/Vol] 10*3/uL Normal <0.01 [facility] Comment on above: Order Comment: Speci men Type: BLOOD SPECIMENOrdering Facility: [facility] Address: [address] [place] [address] Performed By: #### 5 7021-8 ####[facility] LABIA [id number] [place] [address] Nucleated RBC/100 WBC (Bld) [Ratio] 0.0 /100 WBC [facility] Nucleated RBC/100 WBC (Bld) [Ratio] 0.0 /100 WBC Normal [facility] Comment on above: Order Comment: Speci men Type: BLOOD SPECIMENOrdering Facility: [facility] Address: [address] [place] [address] Performed By: #### 5 7021-8 ####[facility] LABCLIA [id number] [place] [address] Platelet mean volume (Bld) [Entitic vol] 9.7 fL 9.0 - 12.7 fL [facility] Platelet mean volume (Bld) [Entitic vol] 9.7 fL Normal 9.0-12.7 [facility] Comment on above: Order Comment: Speci men Type: BLOOD SPECIMENOrdering Facility: [facility] Address: [address] [place] [address] Performed By: #### 5 7021-8 ####[facility] LABCLIA [id number] [place] [address] Platelets (Bld) [#/Vol] 271 10*3/uL 150 - 400 k/uL [facility] Platelets (Bld) [#/Vol] 271 10*3/uL Normal 150-400 [facility] Comment on above: Order Comment: Speci men Type: BLOOD SPECIMENOrdering Facility: [facility] Address: [address] [place] [address] Performed By: #### 5 7021-8 ####[facility] LABCLIA [id number] [place] [address] RBC (Bld) [#/Vol] 3.10 10*6/uL Low 4.20 - 6.0 0 m/uL [facility] RBC (Bld) [#/Vol] 3.10 10*6/uL Low 4.20-6.00 [facility] Comment on above: Order Comment: Speci men Type: BLOOD SPECIMENOrdering Facility: [facility] Address: [address] [place] [place] [id number] Performed By: #### 5 7021-8 ####[facility] LABIA [id number] [place] [address] WBC (Bld) [#/Vol] 10.55 10*3/uL 3.70 - 11.00 k/uL [facility] WBC (Bld) [#/Vol] 10.55 10*3/uL Normal 3.70-11.00 [facility] Comment on above: Order Comment: Speci men Type: BLOOD SPECIMENOrdering Facility: [facility] Address: [address] [place] [address] Performed By: #### 5 7021-8 ####[facility] LABCLIA [id number] [place] [address] CNOVSPon 04-05-2023 CNOVSP Normal [facility] Cancer Ag19-9 SerPl-aCncon 1 06-05-2022 Cancer Ag 19-9 Qn 1648.0 [arb'U]/mL High <36.0 [facility] Comment on above: Order Comment: Speci men Type: BLOOD SPECIMENOrdering Facility: [facility] Address: [address] [place] [address] Result Comment: [facility] er antigen 19-9 test is used as an aid in monitoring response to treatment or recurrence in patients with established pancreatic, hepatobiliary, or gastrointestinal malignancies. Clinical correlation is required.The CA 19-9 Antigen test was performed using the Gravityel DXI paramagnetic particle chemiluminescent immunoassay method. Results obtained with different assay methods or kits cannot be used interchangeably. Performed By: #### 2 4108-3 ####[facility] LABCLIA [id number] [place] [id number] [place] Comprehensive metabolic 2000 panelon 04-05-2023 Albumin [Mass/Vol] 4.2 g/dL 3.9 - 4.9 g/dL [facility] Albumin [Mass/Vol] 4.2 g/dL Normal 3.9-4.9 [facility] Comment on above: Order Comment: Speci men Type: BLOOD SPECIMENOrdering Facility: [facility] Address: [address] [place] [address] Performed By: #### 2 4323-8 ####[facility] LABCLIA [id number] [place] [address] ALP [Catalytic activity/Vol] 112 U/L 38 - 113 U/L [facility] ALP [Catalytic activity/Vol] 112 U/L Normal 38-113 [facility] Comment on above: Order Comment: Speci men Type: BLOOD SPECIMENOrdering Facility: [facility] Address: [address] [place] [address] Performed By: #### 2 4323-8 ####ESEQUIEL [facility] LABIA [id number] [place] [address] ALT [Catalytic activity/Vol] 18 U/L 10 - 54 U/L [facility] ALT [Catalytic activity/Vol] 18 U/L Normal 10-54 [facility] Comment on above: Order Comment: Speci men Type: BLOOD SPECIMENOrdering Facility: [facility] Address: [address] [place] [address] Performed By: #### 2 4323-8 ####[facility] LABCL[facility] [id number] [place] [address] Anion gap [Moles/Vol] 8 mmol/L Low 9 - 18 mmol/L [facility] Anion gap [Moles/Vol] 8 mmol/L Low 9-18 [facility] Comment on above: Order Comment: Speci men Type: BLOOD SPECIMENOrdering Facility: [facility] Address: [address] [place] [address] Performed By: #### 2 4323-8 ####[facility] LABIA [id number] [place] [address] AST [Catalytic activity/Vol] 21 U/L 14 - 40 U/L [facility] AST [Catalytic activity/Vol] 21 U/L Normal 14-40 [facility] Comment on above: Order Comment: Speci men Type: BLOOD SPECIMENOrdering Facility: [facility] Address: [address] [place] [id number] Performed By: #### 2 4323-8 ####[facility] LABCLIA [id number] [place] [address] Bilirubin [Mass/Vol] 1.2 mg/dL 0.2 - 1 .3 mg/dL [facility] Bilirubin [Mass/Vol] 1.2 mg/dL Normal 0.2-1.3 [facility] Comment on above: Order Comment: Speci men Type: BLOOD SPECIMENOrdering Facility: [facility] Address: [address] [place] [address] Performed By: #### 2 4323-8 ####[facility] LABCLIA [id number] [place] [address] Calcium [Mass/Vol] 10.9 mg/dL High 8.5 - 10. 2 mg/dL [facility] Calcium [Mass/Vol] 10.9 mg/dL High 8.5-10.2 [facility] Comment on above: Order Comment: Speci men Type: BLOOD SPECIMENOrdering Facility: [facility] Address: [address] [place] [id number] Performed By: #### 2 4323-8 ####[facility] LABCLIA [id number] [place] [address] Chloride [Moles/Vol] 101 mmol/L 97 - 10 5 mmol/L [facility] Chloride [Moles/Vol] 101 mmol/L Normal 97-105 [facility] Comment on above: Order Comment: Speci men Type: BLOOD SPECIMENOrdering Facility: [facility] Address: [address] [place] [address] Performed By: #### 2 4323-8 ####[facility] LABIA [id number] [place] [address] CO2 [Moles/Vol] 25 mmol/L 22 - 30 mmol/L [facility] CO2 [Moles/Vol] 25 mmol/L Normal 22-30 [facility] Comment on above: Order Comment: Speci men Type: BLOOD SPECIMENOrdering Facility: [facility] Address: [address] [place] [address] Performed By: #### 2 4323-8 ####[facility] LABIA [id number] [place] [address] Creatinine [Mass/Vol] 0.79 mg/dL 0.73 - 1.22 mg/dL [facility] Creatinine [Mass/Vol] 0.79 mg/dL Normal 0.73-1.22 [facility] Comment on above: Order Comment: Noemí hoff Type: BLOOD SPECIMENOrdering Facility: [facility] Address: [address] [place] [address] Performed By: #### 2 4323-8 ####[facility] LABCLIA [id number] [place] [address] Creatinine and Glomerular filtration rate.predicted panel (S/P/Bld) 95 mL/min/1.73m??? Normal >=60 [facility] Comment on above: Order Comment: Noemí men Type: BLOOD SPECIMENOrdering Facility: [facility] Address: [address] [place] [address] Result Comment: Kathy mated Glomerular Filtration Rate [...] actual GFR. Performed By: #### 2 4323-8 ####[facility] LABCLIA [id number] [place] [address] Estimated Glomerular Filtration Rate 95 mL/min/1.73m >=60 mL/min/1.73 m [facility] Glucose [Mass/Vol] 122 mg/dL High 74 - 99 mg/dL [facility] Glucose [Mass/Vol] 122 mg/dL High 74-99 [facility] Comment on above: Order Comment: Noemí luis eduardo Type: BLOOD SPECIMENOrdering Facility: [facility] Address: [address] [place] [address] Result Comment: The [place] [employer] (ADA) provides guidance for cutoff [...] Standards of Medical Care in Diabetes 2016, [place] [employer]. Diabetes Care. 2016.39(Suppl 1). Performed By: #### 2 4323-8 ####[facility] LABCLIA [id number] [place] [address] Potassium [Moles/Vol] 4.1 mmol/L 3.7 - 5.1 mmol/L [facility] Potassium [Moles/Vol] 4.1 mmol/L Normal 3.7-5.1 [facility] Comment on above: Order Comment: Speci men Type: BLOOD SPECIMENOrdering Facility: [facility] Address: [address] [place] [address] Performed By: #### 2 4323-8 ####[facility] LABCLIA [id number] [place] [address] Protein [Mass/Vol] 7.1 g/dL 6.3 - 8.0 g/dL [facility] Protein [Mass/Vol] 7.1 g/dL Normal 6.3-8.0 [facility] Comment on above: Order Comment: Noemí hoff Type: BLOOD SPECIMENOrdering Facility: [facility] Address: [address] [place] [address] Performed By: #### 2 4323-8 ####[facility] LABCLIA [id number] [place] [address] Sodium [Moles/Vol] 134 mmol/L Low 136 - 144 mmol/L [facility] Sodium [Moles/Vol] 134 mmol/L Low 136-144 [facility] Comment on above: Order Comment: Speci men Type: BLOOD SPECIMENOrdering Facility: [facility] Address: [address] [place] [address] Performed By: #### 2 4323-8 ####[facility] LABCLIA [id number] [place] [address] Urea nitrogen [Mass/Vol] 21 mg/dL 9 - 24 mg/dL [facility] Urea nitrogen [Mass/Vol] 21 mg/dL Normal 9-24 [facility] Comment on above: Order Comment: Speci men Type: BLOOD SPECIMENOrdering Facility: [facility] Address: [address] [place] [address] Performed By: #### 2 4323-8 ####[facility] LABCLIA [id number] [place] [address] CNPNon 04-04-2023 CNPN Normal [facility] CBC W Auto Differential pane l (Bld)on 03-30-2023 Basophils (Bld) [#/Vol] 0.04 10*3/uL Normal <0.11 [facility] Comment on above: Order Comment: Speci men Type: BLOOD SPECIMENOrdering Facility: [facility] Address: [address] [place] [address] Performed By: #### 5 7021-8 ####[facility] LABCLIA [id number] [place] [address] Basophils/100 WBC (Bld) 0.5 % Normal [facility] Comment on above: Order Comment: Speci men Type: BLOOD SPECIMENOrdering Facility: [facility] Address: [address] [place] [address] Performed By: #### 5 7021-8 ####[facility] LABCLIA [id number] [place] [address] Differential cell count method Nom (Bld) Auto Normal [facility] Comment on above: Order Comment: Speci men Type: BLOOD SPECIMENOrdering Facility: [facility] Address: [address] [place] [address] Performed By: #### 5 7021-8 ####[facility] LABCLIA [id number] [place] [address] Eosinophils (Bld) [#/Vol] 0.03 10*3/uL Normal <0.46 [facility] Comment on above: Order Comment: Speci men Type: BLOOD SPECIMENOrdering Facility: [facility] Address: [address] [place] [address] Performed By: #### 5 7021-8 ####[facility] LABCLIA [id number] [place] [address] Eosinophils/100 WBC (Bld) 0.4 % Normal [facility] Comment on above: Order Comment: Speci men Type: BLOOD SPECIMENOrdering Facility: [facility] Address: [address] [place] [address] Performed By: #### 5 7021-8 ####[facility] LABCLIA [id number] [place] [address] Erythrocyte distribution width (RBC) [Ratio] 16.0 % High 11.5-15.0 [facility] Comment on above: Order Comment: Speci men Type: BLOOD SPECIMENOrdering Facility: [facility] Address: [address] [place] [address] Performed By: #### 5 7021-8 ####[facility] LABCLIA [id number] [place] [address] Hematocrit (Bld) [Volume fraction] 35.6 % Low 39.0-51.0 [facility] Comment on above: Order Comment: Speci men Type: BLOOD SPECIMENOrdering Facility: [facility] Address: [address] [place] [address] Performed By: #### 5 7021-8 ####[facility] LABCLIA [id number] [place] [address] Hemoglobin (Bld) [Mass/Vol] 11.2 g/dL Low 13.0-17.0 [facility] Comment on above: Order Comment: Speci men Type: BLOOD SPECIMENOrdering Facility: [facility] Address: [address] [place] [address] Performed By: #### 5 7021-8 ####[facility] LABCLIA [id number] [place] [address] Immature granulocytes (Bld) [#/Vol] 0.07 10*3/uL Normal <0.10 [facility] Comment on above: Order Comment: Speci men Type: BLOOD SPECIMENOrdering Facility: [facility] Address: [address] [place] [address] Performed By: #### 5 7021-8 ####[facility] LABCLIA [id number] [place] [address] Immature granulocytes/100 WBC (Bld) 0.9 % Normal [facility] Comment on above: Order Comment: Speci men Type: BLOOD SPECIMENOrdering Facility: [facility] Address: [address] [place] [address] Performed By: #### 5 7021-8 ####[facility] LABCLIA [id number] [place] [address] Lymphocytes (Bld) [#/Vol] 1.68 10*3/uL Normal 1.00-4.00 [facility] Comment on above: Order Comment: Speci men Type: BLOOD SPECIMENOrdering Facility: [facility] Address: [address] [place] [address] Performed By: #### 5 7021-8 ####[facility] LABCLIA [id number] [place] [address] Lymphocytes/100 WBC (Bld) 21.3 % Normal [facility] Comment on above: Order Comment: Speci men Type: BLOOD SPECIMENOrdering Facility: [facility] Address: [address] [place] [address] Performed By: #### 5 7021-8 ####[facility] LABCLIA [id number] [place] [address] MCH (RBC) [Entitic mass] 31.5 pg Normal 26.0-34.0 [facility] Comment on above: Order Comment: Speci men Type: BLOOD SPECIMENOrdering Facility: [facility] Address: [address] [place] [address] Performed By: #### 5 7021-8 ####[facility] LABCLIA [id number] [place] [address] MCHC (RBC) [Mass/Vol] 31.5 g/dL Normal 30.5-36.0 [facility] Comment on above: Order Comment: Speci men Type: BLOOD SPECIMENOrdering Facility: [facility] Address: [address] [place] [address] Performed By: #### 5 7021-8 ####[facility] LABCLIA [id number] [place] [address] MCV (RBC) [Entitic vol] 100.0 fL Normal 80.0-100.0 [facility] Comment on above: Order Comment: Speci men Type: BLOOD SPECIMENOrdering Facility: [facility] Address: [address] [place] [address] Performed By: #### 5 7021-8 ####[facility] LABIA [id number] [place] [address] Monocytes (Bld) [#/Vol] 0.82 10*3/uL Normal <0.87 [facility] Comment on above: Order Comment: Speci men Type: BLOOD SPECIMENOrdering Facility: [facility] Address: [address] [place] [address] Performed By: #### 5 7021-8 ####[facility] LABCLIA [id number] [place] [address] Monocytes/100 WBC (Bld) 10.4 % Normal [facility] Comment on above: Order Comment: Speci men Type: BLOOD SPECIMENOrdering Facility: [facility] Address: [address] [place] [address] Performed By: #### 5 7021-8 ####[facility] LABIA [id number] [place] [address] Neutrophils (Bld) [#/Vol] 5.24 10*3/uL Normal 1.45-7.50 [facility] Comment on above: Order Comment: Speci men Type: BLOOD SPECIMENOrdering Facility: [facility] Address: [address] [place] [address] Performed By: #### 5 7021-8 ####[facility] LABCLIA [id number] [place] [address] Neutrophils/100 WBC (Bld) 66.5 % Normal [facility] Comment on above: Order Comment: Speci men Type: BLOOD SPECIMENOrdering Facility: [facility] Address: [address] [place] [address] Performed By: #### 5 7021-8 ####[facility] LABCLIA [id number] [place] [address] Nucleated RBC (Bld) [#/Vol] 10*3/uL Normal <0.01 [facility] Comment on above: Order Comment: Speci men Type: BLOOD SPECIMENOrdering Facility: [facility] Address: [address] [place] [address] Performed By: #### 5 7021-8 ####[facility] LABCLIA [id number] [place] [address] Nucleated RBC/100 WBC (Bld) [Ratio] 0.0 /100 WBC Normal [facility] Comment on above: Order Comment: Speci men Type: BLOOD SPECIMENOrdering Facility: [facility] Address: [address] [place] [address] Performed By: #### 5 7021-8 ####[facility] LABCLIA [id number] [place] [address] Platelet mean volume (Bld) [Entitic vol] 9.5 fL Normal 9.0-12.7 [facility] Comment on above: Order Comment: Speci men Type: BLOOD SPECIMENOrdering Facility: [facility] Address: [address] [place] [address] Performed By: #### 5 7021-8 ####[facility] LABCLIA [id number] [place] [address] Platelets (Bld) [#/Vol] 479 10*3/uL High 150-400 [facility] Comment on above: Order Comment: Speci men Type: BLOOD SPECIMENOrdering Facility: [facility] Address: [address] [place] [address] Performed By: #### 5 7021-8 ####[facility] LABCLIA [id number] [place] [address] RBC (Bld) [#/Vol] 3.56 10*6/uL Low 4.20-6.00 [facility] Comment on above: Order Comment: Speci men Type: BLOOD SPECIMENOrdering Facility: [facility] Address: [address] [place] [address] Performed By: #### 5 7021-8 ####[facility] LABIA [id number] [place] [address] WBC (Bld) [#/Vol] 7.88 10*3/uL Normal 3.70-11.00 [facility] Comment on above: Order Comment: Speci men Type: BLOOD SPECIMENOrdering Facility: [facility] Address: [address] [place] [address] Performed By: #### 5 7021-8 ####[facility] LABIA [id number] [place] [address] CNOVSPon 03-30-2023 CNOVSP Normal [facility] Cancer Ag19-9 SerPl-aCncon 1 05-30-2022 Cancer Ag 19-9 Qn 2555.0 [arb'U]/mL High <36.0 [facility] Comment on above: Order Comment: Speci men Type: BLOOD SPECIMENOrdering Facility: [facility] Address: [address] [place] [address] Result Comment: [facility] er antigen 19-9 test is used as an aid in monitoring response to treatment or recurrence in patients with established pancreatic, hepatobiliary, or gastrointestinal malignancies. Clinical correlation is required.The CA 19-9 Antigen test was performed using the Gravityel DXI paramagnetic particle chemiluminescent immunoassay method. Results obtained with different assay methods or kits cannot be used interchangeably. Performed By: #### 2 4108-3 ####[facility] LABCLIA [id number] [facility] [id number] [address] [facility] Comprehensive metabolic 2000 panelon 03-30-2023 Albumin [Mass/Vol] 4.2 g/dL Normal 3.9-4.9 [facility] Comment on above: Order Comment: Speci men Type: BLOOD SPECIMENOrdering Facility: [facility] Address: [address] [place] [address] Performed By: #### 2 4323-8 ####[facility] LABCLIA [id number] [place] [address] ALP [Catalytic activity/Vol] 124 U/L High 38-113 [facility] Comment on above: Order Comment: Speci men Type: BLOOD SPECIMENOrdering Facility: [facility] Address: [address] [place] [address] Performed By: #### 2 4323-8 ####[facility] LABCLIA [id number] [place] [address] ALT [Catalytic activity/Vol] 20 U/L Normal 10-54 [facility] Comment on above: Order Comment: Speci men Type: BLOOD SPECIMENOrdering Facility: [facility] Address: [address] [place] [address] Performed By: #### 2 4323-8 ####[facility] LABCLIA [id number] [place] [address] Anion gap [Moles/Vol] 7 mmol/L Low 9-18 [facility] Comment on above: Order Comment: Speci men Type: BLOOD SPECIMENOrdering Facility: [facility] Address: [address] [place] [address] Performed By: #### 2 4323-8 ####[facility] LABCLIA [id number] [place] [address] AST [Catalytic activity/Vol] 20 U/L Normal 14-40 [facility] Comment on above: Order Comment: Speci men Type: BLOOD SPECIMENOrdering Facility: [facility] Address: [address] [place] [address] Performed By: #### 2 4323-8 ####[facility] LABCLIA [id number] [place] [address] Bilirubin [Mass/Vol] 1.0 mg/dL Normal 0.2-1.3 [facility] Comment on above: Order Comment: Speci men Type: BLOOD SPECIMENOrdering Facility: [facility] Address: [address] [place] [address] Performed By: #### 2 4323-8 ####[facility] LABCLIA [id number] [place] [address] Calcium [Mass/Vol] 10.5 mg/dL High 8.5-10.2 [facility] Comment on above: Order Comment: Speci men Type: BLOOD SPECIMENOrdering Facility: [facility] Address: [address] [place] [address] Performed By: #### 2 4323-8 ####[facility] LABCLIA [id number] [place] [address] Chloride [Moles/Vol] 104 mmol/L Normal 97-105 [facility] Comment on above: Order Comment: Speci men Type: BLOOD SPECIMENOrdering Facility: [facility] Address: [address] [place] [address] Performed By: #### 2 4323-8 ####[facility] LABCLIA [id number] [place] [address] CO2 [Moles/Vol] 26 mmol/L Normal 22-30 [facility] Comment on above: Order Comment: Speci men Type: BLOOD SPECIMENOrdering Facility: [facility] Address: [address] [place] [address] Performed By: #### 2 4323-8 ####[facility] LABCLIA [id number] [place] [address] Creatinine [Mass/Vol] 0.78 mg/dL Normal 0.73-1.22 [facility] Comment on above: Order Comment: Noemí hoff Type: BLOOD SPECIMENOrdering Facility: [facility] Address: [address] [place] [id number] Performed By: #### 2 4323-8 ####[facility] LABCLIA [id number] [place] [address] Creatinine and Glomerular filtration rate.predicted panel (S/P/Bld) 95 mL/min/1.73m??? Normal >=60 [facility] Comment on above: Order Comment: Noemí hoff Type: BLOOD SPECIMENOrdering Facility: [facility] Address: [place] [address] Result Comment: Kathy mated Glomerular Filtration Rate [...] actual GFR. Performed By: #### 2 4323-8 ####[facility] LABCLIA [id number] [place] [address] Glucose [Mass/Vol] 137 mg/dL High 74-99 [facility] Comment on above: Order Comment: Noemí hoff Type: BLOOD SPECIMENOrdering Facility: [facility] Address: [address] [place] [id number] Result Comment: The [place] [employer] (ADA) provides guidance for cutoff [...] Standards of Medical Care in Diabetes 2016, [place] [employer]. Diabetes Care. 2016.39(Suppl 1). Performed By: #### 2 4323-8 ####[facility] LABCLIA [id number] [place] [address] Potassium [Moles/Vol] 4.6 mmol/L Normal 3.7-5.1 [facility] Comment on above: Order Comment: Speci men Type: BLOOD SPECIMENOrdering Facility: [facility] Address: [address] [place] [address] Performed By: #### 2 4323-8 ####[facility] LABCLIA [id number] [place] [address] Protein [Mass/Vol] 7.0 g/dL Normal 6.3-8.0 [facility] Comment on above: Order Comment: Speci men Type: BLOOD SPECIMENOrdering Facility: [facility] Address: [address] [place] [address] Performed By: #### 2 4323-8 ####[facility] LABCLIA [id number] [place] [address] Sodium [Moles/Vol] 137 mmol/L Normal 136-144 [facility] Comment on above: Order Comment: Speci men Type: BLOOD SPECIMENOrdering Facility: [facility] Address: [address] [place] [address] Performed By: #### 2 4323-8 ####[facility] LABCLIA [id number] [place] [address] Urea nitrogen [Mass/Vol] 20 mg/dL Normal 9-24 [facility] Comment on above: Order Comment: Speci men Type: BLOOD SPECIMENOrdering Facility: [facility] Address: [address] [place] [address] Performed By: #### 2 4323-8 ####[facility] LABCLIA [id number] [place] [address] CBC W Auto Differential pane l (Bld)on 03-08-2023 Basophils (Bld) [#/Vol] 0.04 10*3/uL <0.11 k/uL [facility] Basophils (Bld) [#/Vol] 0.04 10*3/uL Normal <0.11 [facility] Comment on above: Order Comment: Speci men Type: BLOOD SPECIMENOrdering Facility: [facility] Address: [address] [place] [address] Performed By: #### 5 7021-8 ####[facility] LABCLIA [id number] [place] [address] Basophils/100 WBC (Bld) 0.9 % [facility] Basophils/100 WBC (Bld) 0.9 % Normal [facility] Comment on above: Order Comment: Speci men Type: BLOOD SPECIMENOrdering Facility: [facility] Address: [address] [place] [address] Performed By: #### 5 7021-8 ####[facility] LABCLIA [id number] [place] [address] Differential cell count method Nom (Bld) Auto [facility] Differential cell count method Nom (Bld) Auto Normal [facility] Comment on above: Order Comment: Speci men Type: BLOOD SPECIMENOrdering Facility: [facility] Address: [address] [place] [address] Performed By: #### 5 7021-8 ####[facility] LABCLIA [id number] [place] [address] Eosinophils (Bld) [#/Vol] <0.46 k/uL [facility] Eosinophils (Bld) [#/Vol] 10*3/uL Normal <0.46 [facility] Comment on above: Order Comment: Speci men Type: BLOOD SPECIMENOrdering Facility: [facility] Address: [address] [place] [address] Performed By: #### 5 7021-8 ####[facility] LABCLIA [id number] [place] [address] Eosinophils/100 WBC (Bld) 0.2 % [facility] Eosinophils/100 WBC (Bld) 0.2 % Normal [facility] Comment on above: Order Comment: Speci men Type: BLOOD SPECIMENOrdering Facility: [facility] Address: [address] [place] [address] Performed By: #### 5 7021-8 ####[facility] LABCLIA [id number] [place] [address] Erythrocyte distribution width (RBC) [Ratio] 14.8 % 11.5 - 15.0 % [facility] Erythrocyte distribution width (RBC) [Ratio] 14.8 % Normal 11.5-15.0 [facility] Comment on above: Order Comment: Speci men Type: BLOOD SPECIMENOrdering Facility: [facility] Address: [address] [place] [address] Performed By: #### 5 7021-8 ####[facility] LABCLIA [id number] [place] [address] Hematocrit (Bld) [Volume fraction] 31.4 % Low 39.0 - 51.0 % [facility] Hematocrit (Bld) [Volume fraction] 31.4 % Low 39.0-51.0 [facility] Comment on above: Order Comment: Speci men Type: BLOOD SPECIMENOrdering Facility: [facility] Address: [address] [place] [address] Performed By: #### 5 7021-8 ####[facility] LABCLIA [id number] [place] [address] Hemoglobin (Bld) [Mass/Vol] 10.2 g/dL Low 13.0 - 17.0 g/dL [facility] Hemoglobin (Bld) [Mass/Vol] 10.2 g/dL Low 13.0-17.0 [facility] Comment on above: Order Comment: Speci men Type: BLOOD SPECIMENOrdering Facility: [facility] Address: [address] [place] [address] Performed By: #### 5 7021-8 ####[facility] LABCLIA [id number] [place] [address] Immature granulocytes (Bld) [#/Vol] 0.05 10*3/uL <0.10 k/uL [facility] Immature granulocytes (Bld) [#/Vol] 0.05 10*3/uL Normal <0.10 [facility] Comment on above: Order Comment: Speci men Type: BLOOD SPECIMENOrdering Facility: [facility] Address: [address] [place] [address] Performed By: #### 5 7021-8 ####[facility] LABIA [id number] [place] [address] Immature granulocytes/100 WBC (Bld) 1.1 % [facility] Immature granulocytes/100 WBC (Bld) 1.1 % Normal [facility] Comment on above: Order Comment: Speci men Type: BLOOD SPECIMENOrdering Facility: [facility] Address: [address] [place] [address] Performed By: #### 5 7021-8 ####[facility] LABIA [id number] [place] [address] Lymphocytes (Bld) [#/Vol] 1.26 10*3/uL 1.00 - 4.00 k/uL [facility] Lymphocytes (Bld) [#/Vol] 1.26 10*3/uL Normal 1.00-4.00 [facility] Comment on above: Order Comment: Speci men Type: BLOOD SPECIMENOrdering Facility: [facility] Address: [address] [place] [address] Performed By: #### 5 7021-8 ####[facility] LABIA [id number] [place] [address] Lymphocytes/100 WBC (Bld) 28.8 % [facility] Lymphocytes/100 WBC (Bld) 28.8 % Normal [facility] Comment on above: Order Comment: Speci men Type: BLOOD SPECIMENOrdering Facility: [facility] Address: [address] [place] [address] Performed By: #### 5 7021-8 ####[facility] LABCLIA [id number] [place] [address] MCH (RBC) [Entitic mass] 32.4 pg 26.0 - 34.0 pg [facility] MCH (RBC) [Entitic mass] 32.4 pg Normal 26.0-34.0 [facility] Comment on above: Order Comment: Speci men Type: BLOOD SPECIMENOrdering Facility: [facility] Address: [address] [place] [address] Performed By: #### 5 7021-8 ####[facility] LABCLIA [id number] [place] [address] MCHC (RBC) [Mass/Vol] 32.5 g/dL 30.5 - 36.0 g/dL [facility] MCHC (RBC) [Mass/Vol] 32.5 g/dL Normal 30.5-36.0 [facility] Comment on above: Order Comment: Speci men Type: BLOOD SPECIMENOrdering Facility: [facility] Address: [address] [place] [address] Performed By: #### 5 7021-8 ####[facility] LABIA [id number] [place] [id number] MCV (RBC) [Entitic vol] 99.7 fL 80.0 - 100.0 fL [facility] MCV (RBC) [Entitic vol] 99.7 fL Normal 80.0-100.0 [facility] Comment on above: Order Comment: Speci men Type: BLOOD SPECIMENOrdering Facility: [facility] Address: [address] [place] [address] Performed By: #### 5 7021-8 ####[facility] LABCLIA [id number] [place] [address] Monocytes (Bld) [#/Vol] 0.29 10*3/uL <0.87 k/uL [facility] Monocytes (Bld) [#/Vol] 0.29 10*3/uL Normal <0.87 [facility] Comment on above: Order Comment: Speci men Type: BLOOD SPECIMENOrdering Facility: [facility] Address: [address] [place] [address] Performed By: #### 5 7021-8 ####[facility] LABCLIA [id number] [place] [address] Monocytes/100 WBC (Bld) 6.6 % [facility] Monocytes/100 WBC (Bld) 6.6 % Normal [facility] Comment on above: Order Comment: Speci men Type: BLOOD SPECIMENOrdering Facility: [facility] Address: [address] [place] [address] Performed By: #### 5 7021-8 ####[facility] LABIA [id number] [place] [address] Neutrophils (Bld) [#/Vol] 2.72 10*3/uL 1.45 - 7.50 k/uL [facility] Neutrophils (Bld) [#/Vol] 2.72 10*3/uL Normal 1.45-7.50 [facility] Comment on above: Order Comment: Speci men Type: BLOOD SPECIMENOrdering Facility: [facility] Address: [address] [place] [address] Performed By: #### 5 7021-8 ####[facility] LABCLIA [id number] [place] [address] Neutrophils/100 WBC (Bld) 62.4 % [facility] Neutrophils/100 WBC (Bld) 62.4 % Normal [facility] Comment on above: Order Comment: Speci men Type: BLOOD SPECIMENOrdering Facility: [facility] Address: [address] [place] [address] Performed By: #### 5 7021-8 ####[facility] LABCLIA [id number] [place] [address] Nucleated RBC (Bld) [#/Vol] <0.01 k/uL [facility] Nucleated RBC (Bld) [#/Vol] 10*3/uL Normal <0.01 [facility] Comment on above: Order Comment: Speci men Type: BLOOD SPECIMENOrdering Facility: [facility] Address: [address] [place] [address] Performed By: #### 5 7021-8 ####[facility] LABCLIA [id number] [place] [address] Nucleated RBC/100 WBC (Bld) [Ratio] 0.0 /100 WBC [facility] Nucleated RBC/100 WBC (Bld) [Ratio] 0.0 /100 WBC Normal [facility] Comment on above: Order Comment: Speci men Type: BLOOD SPECIMENOrdering Facility: [facility] Address: [address] [place] [address] Performed By: #### 5 7021-8 ####[facility] LABIA [id number] [place] [address] Platelet mean volume (Bld) [Entitic vol] 9.9 fL 9.0 - 12.7 fL [facility] Platelet mean volume (Bld) [Entitic vol] 9.9 fL Normal 9.0-12.7 [facility] Comment on above: Order Comment: Speci men Type: BLOOD SPECIMENOrdering Facility: [facility] Address: [address] [place] [address] Performed By: #### 5 7021-8 ####[facility] LABIA [id number] [place] [address] Platelets (Bld) [#/Vol] 236 10*3/uL 150 - 400 k/uL [facility] Platelets (Bld) [#/Vol] 236 10*3/uL Normal 150-400 [facility] Comment on above: Order Comment: Speci men Type: BLOOD SPECIMENOrdering Facility: [facility] Address: [address] [place] [address] Performed By: #### 5 7021-8 ####[facility] LABIA [id number] [place] [address] RBC (Bld) [#/Vol] 3.15 10*6/uL Low 4.20 - 6.0 0 m/uL [facility] RBC (Bld) [#/Vol] 3.15 10*6/uL Low 4.20-6.00 [facility] Comment on above: Order Comment: Speci men Type: BLOOD SPECIMENOrdering Facility: [facility] Address: [address] [place], [place] [address] Performed By: #### 5 7021-8 ####[facility] LABIA [id number] [place] [address] WBC (Bld) [#/Vol] 4.37 10*3/uL 3.70 - 11.00 k/uL [facility] WBC (Bld) [#/Vol] 4.37 10*3/uL Normal 3.70-11.00 [facility] Comment on above: Order Comment: Speci men Type: BLOOD SPECIMENOrdering Facility: [facility] Address: [address] [place] [address] Performed By: #### 5 7021-8 ####[facility] LABIA [id number] [place] [address] CNOVSPon 03-08-2023 CNOVSP Normal [facility] Comprehensive metabolic 2000 panelon 03-08-2023 Albumin [Mass/Vol] 4.2 g/dL 3.9 - 4.9 g/dL [facility] Albumin [Mass/Vol] 4.2 g/dL Normal 3.9-4.9 [facility] Comment on above: Order Comment: Speci men Type: BLOOD SPECIMENOrdering Facility: [facility] Address: [address] [place], [place] [address] Performed By: #### 2 4323-8 ####[facility] LABIA [id number] [place] [address] ALP [Catalytic activity/Vol] 128 U/L High 38 - 113 U/L [facility] ALP [Catalytic activity/Vol] 128 U/L High 38-113 [facility] Comment on above: Order Comment: Speci men Type: BLOOD SPECIMENOrdering Facility: [facility] Address: [address] [place] [address] Performed By: #### 2 4323-8 ####[facility] LABCLIA [id number] [place] [address] ALT [Catalytic activity/Vol] 32 U/L 10 - 54 U/L [facility] ALT [Catalytic activity/Vol] 32 U/L Normal 10-54 [facility] Comment on above: Order Comment: Speci men Type: BLOOD SPECIMENOrdering Facility: [facility] Address: [address] [place] [address] Performed By: #### 2 4323-8 ####[facility] LABCLIA [id number] [place] [address] Anion gap [Moles/Vol] 8 mmol/L Low 9 - 18 mmol/L [facility] Anion gap [Moles/Vol] 8 mmol/L Low 9-18 [facility] Comment on above: Order Comment: Speci men Type: BLOOD SPECIMENOrdering Facility: [facility] Address: [address] [place] [address] Performed By: #### 2 4323-8 ####[facility] LABIA [id number] [place] [address] AST [Catalytic activity/Vol] 26 U/L 14 - 40 U/L [facility] AST [Catalytic activity/Vol] 26 U/L Normal 14-40 [facility] Comment on above: Order Comment: Speci men Type: BLOOD SPECIMENOrdering Facility: [facility] Address: [address] [place] [address] Performed By: #### 2 4323-8 ####[facility] LABCLIA [id number] [place] [address] Bilirubin [Mass/Vol] 1.2 mg/dL 0.2 - 1 .3 mg/dL [facility] Bilirubin [Mass/Vol] 1.2 mg/dL Normal 0.2-1.3 [facility] Comment on above: Order Comment: Speci men Type: BLOOD SPECIMENOrdering Facility: [facility] Address: [address] [place] [id number] Performed By: #### 2 4323-8 ####[facility] LABCLIA [id number] [place] [address] Calcium [Mass/Vol] 10.8 mg/dL High 8.5 - 10. 2 mg/dL [facility] Calcium [Mass/Vol] 10.8 mg/dL High 8.5-10.2 [facility] Comment on above: Order Comment: Speci men Type: BLOOD SPECIMENOrdering Facility: [facility] Address: [address] [place] [address] Performed By: #### 2 4323-8 ####[facility] LABIA [id number] [place] [address] Chloride [Moles/Vol] 103 mmol/L 97 - 10 5 mmol/L [facility] Chloride [Moles/Vol] 103 mmol/L Normal 97-105 [facility] Comment on above: Order Comment: Speci men Type: BLOOD SPECIMENOrdering Facility: [facility] Address: [address] [place] [address] Performed By: #### 2 4323-8 ####[facility] LABIA [id number] [place] [address] CO2 [Moles/Vol] 25 mmol/L 22 - 30 mmol/L [facility] CO2 [Moles/Vol] 25 mmol/L Normal 22-30 [facility] Comment on above: Order Comment: Speci men Type: BLOOD SPECIMENOrdering Facility: [facility] Address: [address] [place], [place] [address] Performed By: #### 2 4323-8 ####[facility] LABIA [id number] [place] [address] Creatinine [Mass/Vol] 0.94 mg/dL 0.73 - 1.22 mg/dL [facility] Creatinine [Mass/Vol] 0.94 mg/dL Normal 0.73-1.22 [facility] Comment on above: Order Comment: Speci men Type: BLOOD SPECIMENOrdering Facility: [facility] Address: [address] [place] [address] Performed By: #### 2 4323-8 ####[facility] LABCLIA [id number] [place] [address] Creatinine and Glomerular filtration rate.predicted panel (S/P/Bld) 87 mL/min/1.73m??? Normal >=60 [facility] Comment on above: Order Comment: Noemí hoff Type: BLOOD SPECIMENOrdering Facility: [facility] Address: [address] [place] [address] Result Comment: Kathy mated Glomerular Filtration Rate [...] actual GFR. Performed By: #### 2 4323-8 ####[facility] LABCLIA [id number] [place] [address] Estimated Glomerular Filtration Rate 87 mL/min/1.73m >=60 mL/min/1.73 m [facility] Glucose [Mass/Vol] 138 mg/dL High 74 - 99 mg/dL [facility] Glucose [Mass/Vol] 138 mg/dL High 74-99 [facility] Comment on above: Order Comment: Noemí hoff Type: BLOOD SPECIMENOrdering Facility: [facility] Address: [address] [place] [address] Result Comment: The [place] [employer] (ADA) provides guidance for cutoff [...] Standards of Medical Care in Diabetes 2016, [place] [employer]. Diabetes Care. 2016.39(Suppl 1). Performed By: #### 2 4323-8 ####[facility] LABCLIA [id number] [place] [address] Potassium [Moles/Vol] 4.2 mmol/L 3.7 - 5.1 mmol/L [facility] Potassium [Moles/Vol] 4.2 mmol/L Normal 3.7-5.1 [facility] Comment on above: Order Comment: Speci men Type: BLOOD SPECIMENOrdering Facility: [facility] Address: [address] [place] [address] Performed By: #### 2 4323-8 ####[facility] LABCLIA [id number] [place] [address] Protein [Mass/Vol] 7.0 g/dL 6.3 - 8.0 g/dL [facility] Protein [Mass/Vol] 7.0 g/dL Normal 6.3-8.0 [facility] Comment on above: Order Comment: Speci men Type: BLOOD SPECIMENOrdering Facility: [facility] Address: [address] [place] [address] Performed By: #### 2 4323-8 ####[facility] LABCLIA [id number] [place] [address] Sodium [Moles/Vol] 136 mmol/L 136 - 144 mmol/L [facility] Sodium [Moles/Vol] 136 mmol/L Normal 136-144 [facility] Comment on above: Order Comment: Speci men Type: BLOOD SPECIMENOrdering Facility: [facility] Address: [address] [place] [address] Performed By: #### 2 4323-8 ####[facility] LABCLIA [id number] [place] [address] Urea nitrogen [Mass/Vol] 15 mg/dL 9 - 24 mg/dL [facility] Urea nitrogen [Mass/Vol] 15 mg/dL Normal 9-24 [facility] Comment on above: Order Comment: Speci men Type: BLOOD SPECIMENOrdering Facility: [facility] Address: [address] [place] [address] Performed By: #### 2 4323-8 ####[facility] LABCLIA [id number] [place] [address] CNPNon 03-02-2023 CNPN Normal [facility] CBC W Auto Differential pane l (Bld)on 03-01-2023 Basophils (Bld) [#/Vol] 0.04 10*3/uL <0.11 k/uL [facility] Basophils (Bld) [#/Vol] 0.04 10*3/uL Normal <0.11 [facility] Comment on above: Order Comment: Speci men Type: BLOOD SPECIMENOrdering Facility: [facility] Address: [address] [place] [address] Performed By: #### 5 7021-8 ####[facility] LABCLIA [id number] [place] [address] Basophils/100 WBC (Bld) 0.5 % [facility] Basophils/100 WBC (Bld) 0.5 % Normal [facility] Comment on above: Order Comment: Speci men Type: BLOOD SPECIMENOrdering Facility: [facility] Address: [address] [place] [address] Performed By: #### 5 7021-8 ####[facility] LABCLIA [id number] [place] [address] Differential cell count method Nom (Bld) Auto [facility] Differential cell count method Nom (Bld) Auto Normal [facility] Comment on above: Order Comment: Speci men Type: BLOOD SPECIMENOrdering Facility: [facility] Address: [address] [place] [address] Performed By: #### 5 7021-8 ####[facility] LABCLIA [id number] [place] [address] Eosinophils (Bld) [#/Vol] <0.46 k/uL [facility] Eosinophils (Bld) [#/Vol] 10*3/uL Normal <0.46 [facility] Comment on above: Order Comment: Speci men Type: BLOOD SPECIMENOrdering Facility: [facility] Address: [address] [place] [address] Performed By: #### 5 7021-8 ####[facility] LABIA [id number] [place] [address] Eosinophils/100 WBC (Bld) 0.2 % [facility] Eosinophils/100 WBC (Bld) 0.2 % Normal [facility] Comment on above: Order Comment: Speci men Type: BLOOD SPECIMENOrdering Facility: [facility] Address: [address] [place] [address] Performed By: #### 5 7021-8 ####[facility] LABIA [id number] [place] [address] Erythrocyte distribution width (RBC) [Ratio] 15.6 % High 11.5 - 15.0 % [facility] Erythrocyte distribution width (RBC) [Ratio] 15.6 % High 11.5-15.0 [facility] Comment on above: Order Comment: Speci men Type: BLOOD SPECIMENOrdering Facility: [facility] Address: [address] [place] [address] Performed By: #### 5 7021-8 ####[facility] LABIA [id number] [place] [address] Hematocrit (Bld) [Volume fraction] 37.3 % Low 39.0 - 51.0 % [facility] Hematocrit (Bld) [Volume fraction] 37.3 % Low 39.0-51.0 [facility] Comment on above: Order Comment: Speci men Type: BLOOD SPECIMENOrdering Facility: [facility] Address: [address] [place] [address] Performed By: #### 5 7021-8 ####[facility] LABIA [id number] [place] [address] Hemoglobin (Bld) [Mass/Vol] 11.9 g/dL Low 13.0 - 17.0 g/dL [facility] Hemoglobin (Bld) [Mass/Vol] 11.9 g/dL Low 13.0-17.0 [facility] Comment on above: Order Comment: Speci men Type: BLOOD SPECIMENOrdering Facility: [facility] Address: [address] [place] [address] Performed By: #### 5 7021-8 ####[facility] LABCLIA [id number] [place] [address] Immature granulocytes (Bld) [#/Vol] 0.07 10*3/uL <0.10 k/uL [facility] Immature granulocytes (Bld) [#/Vol] 0.07 10*3/uL Normal <0.10 [facility] Comment on above: Order Comment: Speci men Type: BLOOD SPECIMENOrdering Facility: [facility] Address: [address] [place] [address] Performed By: #### 5 7021-8 ####[facility] LABCLIA [id number] [place] [address] Immature granulocytes/100 WBC (Bld) 0.9 % [facility] Immature granulocytes/100 WBC (Bld) 0.9 % Normal [facility] Comment on above: Order Comment: Speci men Type: BLOOD SPECIMENOrdering Facility: [facility] Address: [address] [place] [address] Performed By: #### 5 7021-8 ####[facility] LABIA [id number] [place] [address] Lymphocytes (Bld) [#/Vol] 1.45 10*3/uL 1.00 - 4.00 k/uL [facility] Lymphocytes (Bld) [#/Vol] 1.45 10*3/uL Normal 1.00-4.00 [facility] Comment on above: Order Comment: Speci men Type: BLOOD SPECIMENOrdering Facility: [facility] Address: [address] [place] [address] Performed By: #### 5 7021-8 ####[facility] LABCLIA [id number] [place] [address] Lymphocytes/100 WBC (Bld) 17.9 % [facility] Lymphocytes/100 WBC (Bld) 17.9 % Normal [facility] Comment on above: Order Comment: Speci men Type: BLOOD SPECIMENOrdering Facility: [facility] Address: [address] [place] [address] Performed By: #### 5 7021-8 ####[facility] LABCLIA [id number] [place] [address] MCH (RBC) [Entitic mass] 32.4 pg 26.0 - 34.0 pg [facility] MCH (RBC) [Entitic mass] 32.4 pg Normal 26.0-34.0 [facility] Comment on above: Order Comment: Speci men Type: BLOOD SPECIMENOrdering Facility: [facility] Address: [address] [place] [address] Performed By: #### 5 7021-8 ####[facility] LABCLIA [id number] [place] [address] MCHC (RBC) [Mass/Vol] 31.9 g/dL 30.5 - 36.0 g/dL [facility] MCHC (RBC) [Mass/Vol] 31.9 g/dL Normal 30.5-36.0 [place] [facility] Comment on above: Order Comment: Speci men Type: BLOOD SPECIMENOrdering Facility: [facility] Address: [address] [place] [address] Performed By: #### 5 7021-8 ####[facility] LABCLIA [id number] [place] [address] MCV (RBC) [Entitic vol] 101.6 fL High 80.0 - 100.0 fL [facility] MCV (RBC) [Entitic vol] 101.6 fL High 80.0-100.0 [facility] Comment on above: Order Comment: Speci men Type: BLOOD SPECIMENOrdering Facility: [facility] Address: [address] [id number] Performed By: #### 5 7021-8 ####[facility] LABCLIA [id number] [place] [address] Monocytes (Bld) [#/Vol] 0.94 10*3/uL High <0.87 k/uL [facility] Monocytes (Bld) [#/Vol] 0.94 10*3/uL High <0.87 [facility] Comment on above: Order Comment: Speci men Type: BLOOD SPECIMENOrdering Facility: [facility] Address: [address] [place] [address] Performed By: #### 5 7021-8 ####[facility] LABCLIA [id number] [place] [address] Monocytes/100 WBC (Bld) 11.6 % [facility] Monocytes/100 WBC (Bld) 11.6 % Normal [facility] Comment on above: Order Comment: Speci men Type: BLOOD SPECIMENOrdering Facility: [facility] Address: [address] [place] [address] Performed By: #### 5 7021-8 ####[facility] LABCLIA [id number] [place] [address] Neutrophils (Bld) [#/Vol] 5.58 10*3/uL 1.45 - 7.50 k/uL [facility] Neutrophils (Bld) [#/Vol] 5.58 10*3/uL Normal 1.45-7.50 [facility] Comment on above: Order Comment: Speci men Type: BLOOD SPECIMENOrdering Facility: [facility] Address: [address] [place] [address] Performed By: #### 5 7021-8 ####[facility] LABCLIA [id number] [place] [address] Neutrophils/100 WBC (Bld) 68.9 % [facility] Neutrophils/100 WBC (Bld) 68.9 % Normal [facility] Comment on above: Order Comment: Speci men Type: BLOOD SPECIMENOrdering Facility: [facility] Address: [address] [place] [address] Performed By: #### 5 7021-8 ####[facility] LABIA [id number] [place] [address] Nucleated RBC (Bld) [#/Vol] <0.01 k/uL [facility] Nucleated RBC (Bld) [#/Vol] 10*3/uL Normal <0.01 [facility] Comment on above: Order Comment: Speci men Type: BLOOD SPECIMENOrdering Facility: [facility] Address: [address] [place] [address] Performed By: #### 5 7021-8 ####[facility] LABIA [id number] [place] [address] Nucleated RBC/100 WBC (Bld) [Ratio] 0.0 /100 WBC [facility] Nucleated RBC/100 WBC (Bld) [Ratio] 0.0 /100 WBC Normal [facility] Comment on above: Order Comment: Speci men Type: BLOOD SPECIMENOrdering Facility: [facility] Address: [address] [place] [address] Performed By: #### 5 7021-8 ####[facility] LABIA [id number] [place] [address] Platelet mean volume (Bld) [Entitic vol] 9.2 fL 9.0 - 12.7 fL [facility] Platelet mean volume (Bld) [Entitic vol] 9.2 fL Normal 9.0-12.7 [facility] Comment on above: Order Comment: Speci men Type: BLOOD SPECIMENOrdering Facility: [facility] Address: [address] [place] [address] Performed By: #### 5 7021-8 ####[facility] LABIA [id number] [place] [address] Platelets (Bld) [#/Vol] 449 10*3/uL High 150 - 400 k/uL [facility] Platelets (Bld) [#/Vol] 449 10*3/uL High 150-400 [facility] Comment on above: Order Comment: Speci men Type: BLOOD SPECIMENOrdering Facility: [facility] Address: [address] [place] [address] Performed By: #### 5 7021-8 ####[facility] LABCLIA [id number] [place] [address] RBC (Bld) [#/Vol] 3.67 10*6/uL Low 4.20 - 6.0 0 m/uL [facility] RBC (Bld) [#/Vol] 3.67 10*6/uL Low 4.20-6.00 [facility] Comment on above: Order Comment: Speci men Type: BLOOD SPECIMENOrdering Facility: [facility] Address: [address] [place] [address] Performed By: #### 5 7021-8 ####[facility] LABCLIA [id number] [place] [address] WBC (Bld) [#/Vol] 8.10 10*3/uL 3.70 - 11.00 k/uL [facility] WBC (Bld) [#/Vol] 8.10 10*3/uL Normal 3.70-11.00 [facility] Comment on above: Order Comment: Speci men Type: BLOOD SPECIMENOrdering Facility: [facility] Address: [address] [place] [address] Performed By: #### 5 7021-8 ####[facility] LABIA [id number] [place] [address] CNOVSPon 03-01-2023 CNOVSP Normal [facility] Cancer Ag19-9 SerPl-aCncon 1 Cancer Ag 19-9 Qn 2928.0 [arb'U]/mL High <36.0 [facility] Comment on above: Order Comment: Speci men Type: BLOOD SPECIMENOrdering Facility: [facility] Address: [address] [place] [address] Result Comment: Canc er antigen 19-9 test [...] used interchangeably. Performed By: #### 2 4108-3 ####[facility] LABCLIA [id number] [place] [address] [place] Comprehensive metabolic 2000 panelon 03-01-2023 Albumin [Mass/Vol] 4.0 g/dL Normal 3.9-4.9 [facility] Comment on above: Order Comment: Speci men Type: BLOOD SPECIMENOrdering Facility: [facility] Address: [address] [place] [address] Performed By: #### 2 4323-8 ####[facility] LABCLIA [id number] [place] [address] [place] ALP [Catalytic activity/Vol] 128 U/L High 38-113 [facility] Comment on above: Order Comment: Speci men Type: BLOOD SPECIMENOrdering Facility: [facility] Address: [address] [place] [address] Performed By: #### 2 4323-8 ####[facility] LABIA [id number] [place] [address] [place] ALT [Catalytic activity/Vol] 29 U/L Normal 10-54 [facility] Comment on above: Order Comment: Speci men Type: BLOOD SPECIMENOrdering Facility: [facility] Address: [address] [place] [address] Performed By: #### 2 4323-8 ####[facility] LABCLIA [id number] [place] [address] [place] Anion gap [Moles/Vol] 11 mmol/L Normal 9-18 [facility] Comment on above: Order Comment: Speci men Type: BLOOD SPECIMENOrdering Facility: [facility] Address: [address] [place] [address] Performed By: #### 2 4323-8 ####[facility] LABCLIA [id number] [place] [address] [place] AST [Catalytic activity/Vol] 23 U/L Normal 14-40 [facility] Comment on above: Order Comment: Speci men Type: BLOOD SPECIMENOrdering Facility: [facility] Address: [address] [place] [address] Performed By: #### 2 4323-8 ####[facility] LABCLIA [id number] [place] [address] [place] Bilirubin [Mass/Vol] 1.0 mg/dL Normal 0.2-1.3 [facility] Comment on above: Order Comment: Speci men Type: BLOOD SPECIMENOrdering Facility: [facility] Address: [address] [place] [address] Performed By: #### 2 4323-8 ####[facility] LABCLIA [id number] [place] [address] [place] Calcium [Mass/Vol] 10.4 mg/dL High 8.5-10.2 [facility] Comment on above: Order Comment: Speci men Type: BLOOD SPECIMENOrdering Facility: [facility] Address: [address] [place] [address] Performed By: #### 2 4323-8 ####[facility] LABCLIA [id number] [place] [address] [place] Chloride [Moles/Vol] 103 mmol/L Normal 97-105 [facility] Comment on above: Order Comment: Speci men Type: BLOOD SPECIMENOrdering Facility: [facility] Address: [address] [place] [address] Performed By: #### 2 4323-8 ####[facility] LABCLIA [id number] [place] [address] [place] CO2 [Moles/Vol] 22 mmol/L Normal 22-30 [facility] Comment on above: Order Comment: Speci men Type: BLOOD SPECIMENOrdering Facility: [facility] Address: [address] [place] [address] Performed By: #### 2 4323-8 ####[facility] LABCLIA [id number] [place] [address] [place] Creatinine [Mass/Vol] 0.91 mg/dL Normal 0.73-1.22 [facility] Comment on above: Order Comment: Speci men Type: BLOOD SPECIMENOrdering Facility: [facility] Address: [address] [place] [address] Performed By: #### 2 4323-8 ####[facility] LABCLIA [id number] [place] [address] [place] Creatinine and Glomerular filtration rate.predicted panel (S/P/Bld) 90 mL/min/1.73m??? Normal >=60 [facility] Comment on above: Order Comment: Speci men Type: BLOOD SPECIMENOrdering Facility: [facility] Address: [address] [place] [address] Result Comment: Kathy mated Glomerular Filtration Rate [...] actual GFR. Performed By: #### 2 4323-8 ####[facility] LABCLIA [id number] [place] [address] [place] Glucose [Mass/Vol] 149 mg/dL High 74-99 [facility] Comment on above: Order Comment: Speci men Type: BLOOD SPECIMENOrdering Facility: [facility] Address: [address] [place] [address] Result Comment: The [place] [employer] (ADA) provides guidance for cutoff [...] Standards of Medical Care in Diabetes 2016, [place] [employer]. Diabetes Care. 2016.39(Suppl 1). Performed By: #### 2 4323-8 ####[facility] LABCLIA [id number] [place] [address] [place] Potassium [Moles/Vol] 4.5 mmol/L Normal 3.7-5.1 [facility] Comment on above: Order Comment: Speci men Type: BLOOD SPECIMENOrdering Facility: [facility] Address: [address] [place] [address] Performed By: #### 2 4323-8 ####[facility] LABIA [id number] [place] [address] [place] Protein [Mass/Vol] 6.8 g/dL Normal 6.3-8.0 [facility] Comment on above: Order Comment: Speci men Type: BLOOD SPECIMENOrdering Facility: [facility] Address: [address] [place] [address] Performed By: #### 2 4323-8 ####[facility] LABCLIA [id number] [place] [address] [place] Sodium [Moles/Vol] 136 mmol/L Normal 136-144 [facility] Comment on above: Order Comment: Speci men Type: BLOOD SPECIMENOrdering Facility: [facility] Address: [address] [place] [address] Performed By: #### 2 4323-8 ####[facility] LABCLIA [id number] [place] [address] [place] Urea nitrogen [Mass/Vol] 21 mg/dL Normal 9-24 [facility] Comment on above: Order Comment: Speci men Type: BLOOD SPECIMENOrdering Facility: [facility] Address: [address] [place] [address] Performed By: #### 2 4323-8 ####[facility] LABCLIA [id number] [place] [address] [place] CBC W Auto Differential pane l (Bld)on 02-08-2023 Basophils (Bld) [#/Vol] 10*3/uL Normal <0.11 [facility] Comment on above: Order Comment: Speci men Type: BLOOD SPECIMENOrdering Facility: [facility] Address: [address] [place] [address] Performed By: #### 5 7021-8 ####[facility] LABCLIA [id number] [place] [address] Basophils/100 WBC (Bld) 0.4 % Normal [facility] Comment on above: Order Comment: Speci men Type: BLOOD SPECIMENOrdering Facility: [facility] Address: [address] [place] [address] Performed By: #### 5 7021-8 ####[facility] LABCLIA [id number] [place] [address] Differential cell count method Nom (Bld) Auto Normal [facility] Comment on above: Order Comment: Speci men Type: BLOOD SPECIMENOrdering Facility: [facility] Address: [address] [place] [address] Performed By: #### 5 7021-8 ####[facility] LABCLIA [id number] [place] [address] Eosinophils (Bld) [#/Vol] 10*3/uL Normal <0.46 [facility] Comment on above: Order Comment: Speci men Type: BLOOD SPECIMENOrdering Facility: [facility] Address: [address] [address] Performed By: #### 5 7021-8 ####[facility] LABCLIA [id number] [place] [address] Eosinophils/100 WBC (Bld) 0.2 % Normal [facility] Comment on above: Order Comment: Speci men Type: BLOOD SPECIMENOrdering Facility: [facility] Address: [address] [place] [address] Performed By: #### 5 7021-8 ####[facility] LABCLIA [id number] [place] [address] Erythrocyte distribution width (RBC) [Ratio] 14.3 % Normal 11.5-15.0 [facility] Comment on above: Order Comment: Speci men Type: BLOOD SPECIMENOrdering Facility: [facility] Address: [address] [place] [address] Performed By: #### 5 7021-8 ####[facility] LABCLIA [id number] [place] [address] Hematocrit (Bld) [Volume fraction] 28.4 % Low 39.0-51.0 [facility] Comment on above: Order Comment: Speci men Type: BLOOD SPECIMENOrdering Facility: [facility] Address: [address] [place] [address] Performed By: #### 5 7021-8 ####[facility] LABCLIA [id number] [place] [address] Hemoglobin (Bld) [Mass/Vol] 9.6 g/dL Low 13.0-17.0 [facility] Comment on above: Order Comment: Speci men Type: BLOOD SPECIMENOrdering Facility: [facility] Address: [address] [place] [address] Performed By: #### 5 7021-8 ####[facility] LABCLIA [id number] [place] [address] Immature granulocytes (Bld) [#/Vol] 0.03 10*3/uL Normal <0.10 [facility] Comment on above: Order Comment: Speci men Type: BLOOD SPECIMENOrdering Facility: [facility] Address: [address] [place] [address] Performed By: #### 5 7021-8 ####[facility] LABCLIA [id number] [place] [address] Immature granulocytes/100 WBC (Bld) 0.6 % Normal [facility] Comment on above: Order Comment: Speci men Type: BLOOD SPECIMENOrdering Facility: [facility] Address: [address] [place] [address] Performed By: #### 5 7021-8 ####[facility] LABCLIA [id number] [place] [address] Lymphocytes (Bld) [#/Vol] 1.42 10*3/uL Normal 1.00-4.00 [facility] Comment on above: Order Comment: Speci men Type: BLOOD SPECIMENOrdering Facility: [facility] Address: [address] [place] [address] Performed By: #### 5 7021-8 ####[facility] LABCLIA [id number] [place] [address] Lymphocytes/100 WBC (Bld) 28.1 % Normal [facility] Comment on above: Order Comment: Speci men Type: BLOOD SPECIMENOrdering Facility: [facility] Address: [address] [address] Performed By: #### 5 7021-8 ####[facility] LABCLIA [id number] [place] [address] MCH (RBC) [Entitic mass] 32.9 pg Normal 26.0-34.0 [facility] Comment on above: Order Comment: Speci men Type: BLOOD SPECIMENOrdering Facility: [facility] Address: [address] [place] [address] Performed By: #### 5 7021-8 ####[facility] LABCLIA [id number] [place] [address] MCHC (RBC) [Mass/Vol] 33.8 g/dL Normal 30.5-36.0 [facility] Comment on above: Order Comment: Speci men Type: BLOOD SPECIMENOrdering Facility: [facility] Address: [address] [place] [address] Performed By: #### 5 7021-8 ####[facility] LABCLIA [id number] [place] [address] MCV (RBC) [Entitic vol] 97.3 fL Normal 80.0-100.0 [facility] Comment on above: Order Comment: Speci men Type: BLOOD SPECIMENOrdering Facility: [facility] Address: [address] [place] [address] Performed By: #### 5 7021-8 ####[facility] LABIA [id number] [place] [address] Monocytes (Bld) [#/Vol] 0.22 10*3/uL Normal <0.87 [facility] Comment on above: Order Comment: Speci men Type: BLOOD SPECIMENOrdering Facility: [facility] Address: [address] [place] [address] Performed By: #### 5 7021-8 ####[facility] LABCLIA [id number] [place] [address] Monocytes/100 WBC (Bld) 4.3 % Normal [facility] Comment on above: Order Comment: Speci men Type: BLOOD SPECIMENOrdering Facility: [facility] Address: [address] [place] [address] Performed By: #### 5 7021-8 ####[facility] LABCLIA [id number] [place] [address] Neutrophils (Bld) [#/Vol] 3.36 10*3/uL Normal 1.45-7.50 [facility] Comment on above: Order Comment: Speci men Type: BLOOD SPECIMENOrdering Facility: [facility] Address: [address] [place] [address] Performed By: #### 5 7021-8 ####[facility] LABCLIA [id number] [place] [address] Neutrophils/100 WBC (Bld) 66.4 % Normal [facility] Comment on above: Order Comment: Speci men Type: BLOOD SPECIMENOrdering Facility: [facility] Address: [address] [address] Performed By: #### 5 7021-8 ####[facility] LABIA [id number] [place] [address] Nucleated RBC (Bld) [#/Vol] 10*3/uL Normal <0.01 [facility] Comment on above: Order Comment: Speci men Type: BLOOD SPECIMENOrdering Facility: [facility] Address: [address] [address] Performed By: #### 5 7021-8 ####[facility] LABIA [id number] [place] [address] Nucleated RBC/100 WBC (Bld) [Ratio] 0.0 /100 WBC Normal [facility] Comment on above: Order Comment: Speci men Type: BLOOD SPECIMENOrdering Facility: [facility] Address: [address] [place], [place] [address] Performed By: #### 5 7021-8 ####[facility] LABIA [id number] [place] [address] Platelet mean volume (Bld) [Entitic vol] 9.9 fL Normal 9.0-12.7 [facility] Comment on above: Order Comment: Speci men Type: BLOOD SPECIMENOrdering Facility: [facility] Address: [address] [place] [address] Performed By: #### 5 7021-8 ####[facility] LABCLIA [id number] [place] [address] Platelets (Bld) [#/Vol] 182 10*3/uL Normal 150-400 [facility] Comment on above: Order Comment: Speci men Type: BLOOD SPECIMENOrdering Facility: [facility] Address: [address] [place] [address] Performed By: #### 5 7021-8 ####[facility] LABCLIA [id number] [place] [address] RBC (Bld) [#/Vol] 2.92 10*6/uL Low 4.20-6.00 [facility] Comment on above: Order Comment: Speci men Type: BLOOD SPECIMENOrdering Facility: [facility] Address: [address] [place] [address] Performed By: #### 5 7021-8 ####[facility] [id number] [place] [address] WBC (Bld) [#/Vol] 5.06 10*3/uL Normal 3.70-11.00 [facility] Comment on above: Order Comment: Speci men Type: BLOOD SPECIMENOrdering Facility: [facility] Address: [address] [place] [address] Performed By: #### 5 7021-8 ####[facility] LABIA [id number] [place] [address] CNOVSPon 02-08-2023 CNOVSP Normal [facility] Comprehensive metabolic 2000 panelon 02-08-2023 Albumin [Mass/Vol] 3.9 g/dL Normal 3.9-4.9 [facility] Comment on above: Order Comment: Speci men Type: BLOOD SPECIMENOrdering Facility: [facility] Address: [address] [place] [address] Performed By: #### 2 4323-8 ####[facility] LABCLIA [id number] [place] [address] ALP [Catalytic activity/Vol] 124 U/L High 38-113 [facility] Comment on above: Order Comment: Speci men Type: BLOOD SPECIMENOrdering Facility: [facility] Address: [address] [address] Performed By: #### 2 4323-8 ####[facility] LABCLIA [id number] [place] [address] ALT [Catalytic activity/Vol] 33 U/L Normal 10-54 [facility] Comment on above: Order Comment: Speci men Type: BLOOD SPECIMENOrdering Facility: [facility] Address: [address] [place] [address] Performed By: #### 2 4323-8 ####[facility] LABCLIA [id number] [place] [address] Anion gap [Moles/Vol] 8 mmol/L Low 9-18 [facility] Comment on above: Order Comment: Speci men Type: BLOOD SPECIMENOrdering Facility: [facility] Address: [address] [address] Performed By: #### 2 4323-8 ####[facility] LABCLIA [id number] [place] [address] AST [Catalytic activity/Vol] 25 U/L Normal 14-40 [facility] Comment on above: Order Comment: Speci men Type: BLOOD SPECIMENOrdering Facility: [facility] Address: [address] [address] Performed By: #### 2 4323-8 ####[facility] LABCLIA [id number] [place] [address] Bilirubin [Mass/Vol] 1.3 mg/dL Normal 0.2-1.3 [facility] Comment on above: Order Comment: Speci men Type: BLOOD SPECIMENOrdering Facility: [facility] Address: [address] [place] [address] Performed By: #### 2 4323-8 ####[facility] LABCLIA [id number] [place] [address] Calcium [Mass/Vol] 10.1 mg/dL Normal 8.5-10.2 [facility] Comment on above: Order Comment: Speci men Type: BLOOD SPECIMENOrdering Facility: [facility] Address: [address] [place] [address] Performed By: #### 2 4323-8 ####[facility] LABCLIA [id number] [place] [address] Chloride [Moles/Vol] 104 mmol/L Normal 97-105 [facility] Comment on above: Order Comment: Speci men Type: BLOOD SPECIMENOrdering Facility: [facility] Address: [address] [place] [address] Performed By: #### 2 4323-8 ####[facility] LABCLIA [id number] [place] [address] CO2 [Moles/Vol] 25 mmol/L Normal 22-30 [facility] Comment on above: Order Comment: Speci men Type: BLOOD SPECIMENOrdering Facility: [facility] Address: [address] [place] [address] Performed By: #### 2 4323-8 ####[facility] LABCLIA [id number] [place] [address] Creatinine [Mass/Vol] 0.87 mg/dL Normal 0.73-1.22 [facility] Comment on above: Order Comment: Speci men Type: BLOOD SPECIMENOrdering Facility: [facility] Address: [address] [place] [address] Performed By: #### 2 4323-8 ####[facility] LABCLIA [id number] [place] [address] Creatinine and Glomerular filtration rate.predicted panel (S/P/Bld) 92 mL/min/1.73m??? Normal >=60 [facility] Comment on above: Order Comment: Noemí hoff Type: BLOOD SPECIMENOrdering Facility: [facility] Address: [address] [id number] Result Comment: Kathy mated Glomerular Filtration Rate [...] actual GFR. Performed By: #### 2 4323-8 ####[facility] LABIA [id number] [place] [address] Glucose [Mass/Vol] 136 mg/dL High 74-99 [facility] Comment on above: Order Comment: Noemí hoff Type: BLOOD SPECIMENOrdering Facility: [facility] Address: [address] [place] [address] Result Comment: The [place] [employer] (ADA) provides guidance for cutoff [...] Standards of Medical Care in Diabetes 2016, [place] [employer]. Diabetes Care. 2016.39(Suppl 1). Performed By: #### 2 4323-8 ####[facility] [id number] [place] [address] Potassium [Moles/Vol] 4.1 mmol/L Normal 3.7-5.1 [facility] Comment on above: Order Comment: Noemí hoff Type: BLOOD SPECIMENOrdering Facility: [facility] Address: Amaris GÓMEZ [address] Performed By: #### 2 4323-8 ####[facility] LABCLIA [id number] [place] [address] Protein [Mass/Vol] 6.5 g/dL Normal 6.3-8.0 [facility] Comment on above: Order Comment: Speci men Type: BLOOD SPECIMENOrdering Facility: [facility] Address: [address] [place] [address] Performed By: #### 2 4323-8 ####[facility] LABCLIA [id number] [place] [address] Sodium [Moles/Vol] 137 mmol/L Normal 136-144 [facility] Comment on above: Order Comment: Speci men Type: BLOOD SPECIMENOrdering Facility: [facility] Address: [address] [place] [address] Performed By: #### 2 4323-8 ####[facility] LABCLIA [id number] [place] [address] Urea nitrogen [Mass/Vol] 18 mg/dL Normal 9-24 [facility] Comment on above: Order Comment: Speci men Type: BLOOD SPECIMENOrdering Facility: [facility] Address: [address] [place] [address] Performed By: #### 2 4323-8 ####[facility] LABCLIA [id number] [place] [address] CBC W Auto Differential pane l (Bld)on 02-01-2023 Basophils (Bld) [#/Vol] <0.11 k/uL [facility] Basophils (Bld) [#/Vol] 10*3/uL Normal <0.11 [facility] Comment on above: Order Comment: Speci men Type: BLOOD SPECIMENOrdering Facility: [facility] Address: [address] [place] [address] Performed By: #### 5 7021-8 ####[facility] LABCLIA [id number] [place] [address] Basophils/100 WBC (Bld) 0.2 % [facility] Basophils/100 WBC (Bld) 0.2 % Normal [facility] Comment on above: Order Comment: Speci men Type: BLOOD SPECIMENOrdering Facility: [facility] Address: [address] [place] [address] Performed By: #### 5 7021-8 ####ESEQUIEL [facility] LABCLIA [id number] [place] [address] Differential cell count method Nom (Bld) Auto [facility] Differential cell count method Nom (Bld) Auto Normal [facility] Comment on above: Order Comment: Speci men Type: BLOOD SPECIMENOrdering Facility: [facility] Address: [address] [place] [address] Performed By: #### 5 7021-8 ####ESEQUIEL [facility] LABCLIA [id number] [place] [address] Eosinophils (Bld) [#/Vol] <0.46 k/uL [facility] Eosinophils (Bld) [#/Vol] 10*3/uL Normal <0.46 [facility] Comment on above: Order Comment: Speci men Type: BLOOD SPECIMENOrdering Facility: [facility] Address: [address] [place] [address] Performed By: #### 5 7021-8 ####ESEQUIEL [facility] LABCLIA [id number] [place] [address] Eosinophils/100 WBC (Bld) 0.2 % [facility] Eosinophils/100 WBC (Bld) 0.2 % Normal [facility] Comment on above: Order Comment: Speci men Type: BLOOD SPECIMENOrdering Facility: [facility] Address: [address] [place] [address] Performed By: #### 5 7021-8 ####[facility] LABCLIA [id number] [place] [address] Erythrocyte distribution width (RBC) [Ratio] 14.3 % 11.5 - 15.0 % [facility] Erythrocyte distribution width (RBC) [Ratio] 14.3 % Normal 11.5-15.0 [facility] Comment on above: Order Comment: Speci men Type: BLOOD SPECIMENOrdering Facility: [facility] Address: [address] [place] [address] Performed By: #### 5 7021-8 ####[facility] LABIA [id number] [place] [address] Hematocrit (Bld) [Volume fraction] 35.3 % Low 39.0 - 51.0 % [facility] Hematocrit (Bld) [Volume fraction] 35.3 % Low 39.0-51.0 [facility] Comment on above: Order Comment: Speci men Type: BLOOD SPECIMENOrdering Facility: [facility] Address: [address] [place] [address] Performed By: #### 5 7021-8 ####[facility] LABIA [id number] [place] [address] Hemoglobin (Bld) [Mass/Vol] 11.7 g/dL Low 13.0 - 17.0 g/dL [facility] Hemoglobin (Bld) [Mass/Vol] 11.7 g/dL Low 13.0-17.0 [facility] Comment on above: Order Comment: Speci men Type: BLOOD SPECIMENOrdering Facility: [facility] Address: [address] [place] [address] Performed By: #### 5 7021-8 ####[facility] LABIA [id number] [place] [address] Immature granulocytes (Bld) [#/Vol] 0.05 10*3/uL <0.10 k/uL [facility] Immature granulocytes (Bld) [#/Vol] 0.05 10*3/uL Normal <0.10 [facility] Comment on above: Order Comment: Speci men Type: BLOOD SPECIMENOrdering Facility: [facility] Address: [address] [place] [address] Performed By: #### 5 7021-8 ####[facility] LABCLIA [id number] [place] [address] Immature granulocytes/100 WBC (Bld) 0.4 % [facility] Immature granulocytes/100 WBC (Bld) 0.4 % Normal [facility] Comment on above: Order Comment: Speci men Type: BLOOD SPECIMENOrdering Facility: [facility] Address: [address] [place] [address] Performed By: #### 5 7021-8 ####[facility] LABCLIA [id number] [place] [address] Lymphocytes (Bld) [#/Vol] 1.68 10*3/uL 1.00 - 4.00 k/uL [facility] Lymphocytes (Bld) [#/Vol] 1.68 10*3/uL Normal 1.00-4.00 [facility] Comment on above: Order Comment: Speci men Type: BLOOD SPECIMENOrdering Facility: [facility] Address: [address] [place] [address] Performed By: #### 5 7021-8 ####[facility] LABIA [id number] [place] [address] Lymphocytes/100 WBC (Bld) 14.6 % [facility] Lymphocytes/100 WBC (Bld) 14.6 % Normal [facility] Comment on above: Order Comment: Speci men Type: BLOOD SPECIMENOrdering Facility: [facility] Address: [address] [place] [address] Performed By: #### 5 7021-8 ####[facility] LABIA [id number] [place] [address] MCH (RBC) [Entitic mass] 32.4 pg 26.0 - 34.0 pg [facility] MCH (RBC) [Entitic mass] 32.4 pg Normal 26.0-34.0 [facility] Comment on above: Order Comment: Speci men Type: BLOOD SPECIMENOrdering Facility: [facility] Address: [address] [place], [place] [id number] Performed By: #### 5 7021-8 ####[facility] LABCLIA [id number] [place] [address] MCHC (RBC) [Mass/Vol] 33.1 g/dL 30.5 - 36.0 g/dL [facility] MCHC (RBC) [Mass/Vol] 33.1 g/dL Normal 30.5-36.0 [facility] Comment on above: Order Comment: Speci men Type: BLOOD SPECIMENOrdering Facility: [facility] Address: [address] [address] Performed By: #### 5 7021-8 ####[facility] LABCLIA [id number] [place] [address] MCV (RBC) [Entitic vol] 97.8 fL 80.0 - 100.0 fL [facility] MCV (RBC) [Entitic vol] 97.8 fL Normal 80.0-100.0 [facility] Comment on above: Order Comment: Speci men Type: BLOOD SPECIMENOrdering Facility: [facility] Address: [address] [address] Performed By: #### 5 7021-8 ####[facility] LABCLIA [id number] [place] [address] Monocytes (Bld) [#/Vol] 0.70 10*3/uL <0.87 k/uL [facility] Monocytes (Bld) [#/Vol] 0.70 10*3/uL Normal <0.87 [facility] Comment on above: Order Comment: Speci men Type: BLOOD SPECIMENOrdering Facility: [facility] Address: [address] [address] Performed By: #### 5 7021-8 ####[facility] LABCLIA [id number] [place] [address] Monocytes/100 WBC (Bld) 6.1 % [facility] Monocytes/100 WBC (Bld) 6.1 % Normal [facility] Comment on above: Order Comment: Speci men Type: BLOOD SPECIMENOrdering Facility: [facility] Address: [address] [place] [address] Performed By: #### 5 7021-8 ####[facility] LABCLIA [id number] [place] [address] Neutrophils (Bld) [#/Vol] 9.04 10*3/uL High 1.45 - 7.50 k/uL [facility] Neutrophils (Bld) [#/Vol] 9.04 10*3/uL High 1.45-7.50 [facility] Comment on above: Order Comment: Speci men Type: BLOOD SPECIMENOrdering Facility: [facility] Address: [address] [place] [address] Performed By: #### 5 7021-8 ####[facility] LABCLIA [id number] [place] [address] Neutrophils/100 WBC (Bld) 78.5 % [facility] Neutrophils/100 WBC (Bld) 78.5 % Normal [facility] Comment on above: Order Comment: Speci men Type: BLOOD SPECIMENOrdering Facility: [facility] Address: [address] [place] [address] Performed By: #### 5 7021-8 ####[facility] LABCLIA [id number] [place] [address] Nucleated RBC (Bld) [#/Vol] <0.01 k/uL [facility] Nucleated RBC (Bld) [#/Vol] 10*3/uL Normal <0.01 [facility] Comment on above: Order Comment: Speci men Type: BLOOD SPECIMENOrdering Facility: [facility] Address: [address] [place] [address] Performed By: #### 5 7021-8 ####[facility] LABCLIA [id number] [place] [address] Nucleated RBC/100 WBC (Bld) [Ratio] 0.0 /100 WBC [facility] Nucleated RBC/100 WBC (Bld) [Ratio] 0.0 /100 WBC Normal [facility] Comment on above: Order Comment: Speci men Type: BLOOD SPECIMENOrdering Facility: [facility] Address: [address] [place] [address] Performed By: #### 5 7021-8 ####[facility] LABCLIA [id number] [place] [address] Platelet mean volume (Bld) [Entitic vol] 10.1 fL 9.0 - 12.7 fL [facility] Platelet mean volume (Bld) [Entitic vol] 10.1 fL Normal 9.0-12.7 [facility] Comment on above: Order Comment: Speci men Type: BLOOD SPECIMENOrdering Facility: [facility] Address: [address] [place] [address] Performed By: #### 5 7021-8 ####[facility] LABCLIA [id number] [place] [address] Platelets (Bld) [#/Vol] 267 10*3/uL 150 - 400 k/uL [facility] Platelets (Bld) [#/Vol] 267 10*3/uL Normal 150-400 [facility] Comment on above: Order Comment: Speci men Type: BLOOD SPECIMENOrdering Facility: [facility] Address: [address] [place] [address] Performed By: #### 5 7021-8 ####[facility] LABCLIA [id number] [place] [address] RBC (Bld) [#/Vol] 3.61 10*6/uL Low 4.20 - 6.0 0 m/uL [facility] RBC (Bld) [#/Vol] 3.61 10*6/uL Low 4.20-6.00 [facility] Comment on above: Order Comment: Speci men Type: BLOOD SPECIMENOrdering Facility: [facility] Address: [address] [place] [address] Performed By: #### 5 7021-8 ####[facility] LABCLIA [id number] [place] [address] WBC (Bld) [#/Vol] 11.51 10*3/uL High 3.70 - 11.00 k/uL [facility] WBC (Bld) [#/Vol] 11.51 10*3/uL High 3.70-11.00 [facility] Comment on above: Order Comment: Speci men Type: BLOOD SPECIMENOrdering Facility: [facility] Address: [address] [address] Performed By: #### 5 7021-8 ####[facility] LABCLIA [id number] [place] [address] CNOVSPon 02-01-2023 CNOVSP Normal [facility] CNPNon 02-01-2023 CNPN Normal [facility] Cancer Ag19-9 SerPl-aCncon 0 02-01-2023 Cancer Ag 19-9 Qn 2276.0 [arb'U]/mL High <36.0 [facility] Comment on above: Order Comment: Speci men Type: BLOOD SPECIMENOrdering Facility: [facility] Address: [address] [place] [address] Result Comment: [facility] er antigen 19-9 test is used as an aid in monitoring response to treatment or recurrence in patients with established pancreatic, hepatobiliary, or gastrointestinal malignancies. Clinical correlation is required.The CA 19-9 Antigen test was performed using the [employer] [place] [employer] DXI paramagnetic particle chemiluminescent immunoassay method. Results obtained with different assay methods or kits cannot be used interchangeably. Performed By: #### 2 4108-3 ####[facility] LABCLIA [id number] [place] [address] [place] Comprehensive metabolic 2000 panelon 02-01-2023 Albumin [Mass/Vol] 4.2 g/dL 3.9 - 4.9 g/dL [facility] Albumin [Mass/Vol] 4.2 g/dL Normal 3.9-4.9 [facility] Comment on above: Order Comment: Speci men Type: BLOOD SPECIMENOrdering Facility: [facility] Address: [address] [place] [address] Performed By: #### 2 4323-8 ####[facility] LABIA [id number] [place] [address] ALP [Catalytic activity/Vol] 139 U/L High 38 - 113 U/L [facility] ALP [Catalytic activity/Vol] 139 U/L High 38-113 [facility] Comment on above: Order Comment: Speci men Type: BLOOD SPECIMENOrdering Facility: [facility] Address: [address] [place] [address] Performed By: #### 2 4323-8 ####[facility]QU[facility]EL [facility] LABIA [id number] [place] [address] ALT [Catalytic activity/Vol] 23 U/L 10 - 54 U/L [facility] ALT [Catalytic activity/Vol] 23 U/L Normal 10-54 [facility] Comment on above: Order Comment: Speci men Type: BLOOD SPECIMENOrdering Facility: [facility] Address: [address] [place] [address] Performed By: #### 2 4323-8 ####[facility]QU[facility]EL [facility] LABIA [id number] [place] [address] Anion gap [Moles/Vol] 11 mmol/L 9 - 18 mmol/L [facility] Anion gap [Moles/Vol] 11 mmol/L Normal 9-18 [facility] Comment on above: Order Comment: Speci men Type: BLOOD SPECIMENOrdering Facility: [facility] Address: [address] [place] [address] Performed By: #### 2 4323-8 ####[facility]QU[facility]EL [facility] LABIA [id number] [place] [address] AST [Catalytic activity/Vol] 19 U/L 14 - 40 U/L [facility] AST [Catalytic activity/Vol] 19 U/L Normal 14-40 [facility] Comment on above: Order Comment: Speci men Type: BLOOD SPECIMENOrdering Facility: [facility] Address: [address] [address] Performed By: #### 2 4323-8 ####[facility] LABCLIA [id number] [place] [address] Bilirubin [Mass/Vol] 1.3 mg/dL 0.2 - 1 .3 mg/dL [facility] Bilirubin [Mass/Vol] 1.3 mg/dL Normal 0.2-1.3 [facility] Comment on above: Order Comment: Speci men Type: BLOOD SPECIMENOrdering Facility: [facility] Address: [address] [place] [address] Performed By: #### 2 4323-8 ####[facility] LABCLIA [id number] [place] [address] Calcium [Mass/Vol] 10.7 mg/dL High 8.5 - 10. 2 mg/dL [facility] Calcium [Mass/Vol] 10.7 mg/dL High 8.5-10.2 [facility] Comment on above: Order Comment: Speci men Type: BLOOD SPECIMENOrdering Facility: [facility] Address: [address] [place] [address] Performed By: #### 2 4323-8 ####[facility] LABCLIA [id number] [place] [address] Chloride [Moles/Vol] 102 mmol/L 97 - 10 5 mmol/L [facility] Chloride [Moles/Vol] 102 mmol/L Normal 97-105 [facility] Comment on above: Order Comment: Speci men Type: BLOOD SPECIMENOrdering Facility: [facility] Address: [address] [place] [address] Performed By: #### 2 4323-8 ####[facility] LABCLIA [id number] [place] [address] CO2 [Moles/Vol] 23 mmol/L 22 - 30 mmol/L [facility] CO2 [Moles/Vol] 23 mmol/L Normal 22-30 [facility] Comment on above: Order Comment: Speci men Type: BLOOD SPECIMENOrdering Facility: [facility] Address: [address] [place] [address] Performed By: #### 2 4323-8 ####[facility] LABCLIA [id number] [place] [address] Creatinine [Mass/Vol] 0.97 mg/dL 0.73 - 1.22 mg/dL [facility] Creatinine [Mass/Vol] 0.97 mg/dL Normal 0.73-1.22 [facility] Comment on above: Order Comment: Speci men Type: BLOOD SPECIMENOrdering Facility: [facility] Address: [address] [place] [address] Performed By: #### 2 4323-8 ####[facility] LABIA [id number] [place] [address] Creatinine and Glomerular filtration rate.predicted panel (S/P/Bld) 83 mL/min/1.73m??? Normal >=60 [facility] Comment on above: Order Comment: Speci men Type: BLOOD SPECIMENOrdering Facility: [facility] Address: [address] [place] [address] Result Comment: Kathy mated Glomerular Filtration Rate [...] actual GFR. Performed By: #### 2 4323-8 ####[facility] LABIA [id number] [place] [address] Estimated Glomerular Filtration Rate 83 mL/min/1.73m >=60 mL/min/1.73 m [facility] Glucose [Mass/Vol] 172 mg/dL High 74 - 99 mg/dL [facility] Glucose [Mass/Vol] 172 mg/dL High 74-99 [facility] Comment on above: Order Comment: Speci men Type: BLOOD SPECIMENOrdering Facility: [facility] Address: [address] [place], [place] [id number] Result Comment: The [place] [employer] (ADA) provides guidance for cutoff [...] Standards of Medical Care in Diabetes 2016, [place] [employer]. Diabetes Care. 2016.39(Suppl 1). Performed By: #### 2 4323-8 ####[facility] LABCLIA [id number] [place] [address] Potassium [Moles/Vol] 4.4 mmol/L 3.7 - 5.1 mmol/L [facility] Potassium [Moles/Vol] 4.4 mmol/L Normal 3.7-5.1 [facility] Comment on above: Order Comment: Speci men Type: BLOOD SPECIMENOrdering Facility: [facility] Address: [address] [place], [place] [id number] Performed By: #### 2 4323-8 ####[facility] LABCLIA [id number] [place] [address] Protein [Mass/Vol] 7.2 g/dL 6.3 - 8.0 g/dL [facility] Protein [Mass/Vol] 7.2 g/dL Normal 6.3-8.0 [facility] Comment on above: Order Comment: Speci men Type: BLOOD SPECIMENOrdering Facility: [facility] Address: [address] [place], [place] [id number] Performed By: #### 2 4323-8 ####[facility] LABCLIA [id number] [place] [address] Sodium [Moles/Vol] 136 mmol/L 136 - 144 mmol/L [facility] Sodium [Moles/Vol] 136 mmol/L Normal 136-144 [facility] Comment on above: Order Comment: Speci men Type: BLOOD SPECIMENOrdering Facility: [facility] Address: [address] [place] [address] Performed By: #### 2 4323-8 ####[facility] LABCLIA [id number] [place] [address] Urea nitrogen [Mass/Vol] 22 mg/dL 9 - 24 mg/dL [facility] Urea nitrogen [Mass/Vol] 22 mg/dL Normal 9-24 [facility] Comment on above: Order Comment: Speci men Type: BLOOD SPECIMENOrdering Facility: [facility] Address: [address] [place] [address] Performed By: #### 2 4323-8 ####[facility] LABIA [id number] [place] [address] CBC W Auto Differential pane l (Bld)on 01-04-2023 Basophils (Bld) [#/Vol] 0.05 10*3/uL Normal <0.11 [facility] Comment on above: Order Comment: Speci men Type: BLOOD SPECIMENOrdering Facility: [facility] Address: [address] [place] [address] Performed By: #### 5 7021-8 ####[facility] LABIA [id number] [place] [address] Basophils/100 WBC (Bld) 0.5 % Normal [facility] Comment on above: Order Comment: Speci men Type: BLOOD SPECIMENOrdering Facility: [facility] Address: [address] [place] [address] Performed By: #### 5 7021-8 ####[facility] LABIA [id number] [place] [address] Differential cell count method Nom (Bld) Auto Normal [facility] Comment on above: Order Comment: Speci men Type: BLOOD SPECIMENOrdering Facility: [facility] Address: [address] [place] [address] Performed By: #### 5 7021-8 ####[facility] LABCLIA [id number] [place] [address] Eosinophils (Bld) [#/Vol] 0.04 10*3/uL Normal <0.46 [facility] Comment on above: Order Comment: Speci men Type: BLOOD SPECIMENOrdering Facility: [facility] Address: [address] [place] [address] Performed By: #### 5 7021-8 ####[facility] LABCLIA [id number] [place] [address] Eosinophils/100 WBC (Bld) 0.4 % Normal [facility] Comment on above: Order Comment: Speci men Type: BLOOD SPECIMENOrdering Facility: [facility] Address: [address] [place] [address] Performed By: #### 5 7021-8 ####[facility] LABCLIA [id number] [place] [address] Erythrocyte distribution width (RBC) [Ratio] 16.8 % High 11.5-15.0 [facility] Comment on above: Order Comment: Speci men Type: BLOOD SPECIMENOrdering Facility: [facility] Address: [address] [place] [address] Performed By: #### 5 7021-8 ####[facility] LABCLIA [id number] [place] [address] Hematocrit (Bld) [Volume fraction] 35.9 % Low 39.0-51.0 [facility] Comment on above: Order Comment: Speci men Type: BLOOD SPECIMENOrdering Facility: [facility] Address: [address] [place] [address] Performed By: #### 5 7021-8 ####[facility] LABCLIA [id number] [place] [address] Hemoglobin (Bld) [Mass/Vol] 11.7 g/dL Low 13.0-17.0 [facility] Comment on above: Order Comment: Speci men Type: BLOOD SPECIMENOrdering Facility: [facility] Address: [address] [place] [address] Performed By: #### 5 7021-8 ####[facility] LABCLIA [id number] [place] [address] Immature granulocytes (Bld) [#/Vol] 0.06 10*3/uL Normal <0.10 [facility] Comment on above: Order Comment: Speci men Type: BLOOD SPECIMENOrdering Facility: [facility] Address: [address] [place] [address] Performed By: #### 5 7021-8 ####[facility] LABCLIA [id number] [place] [address] Immature granulocytes/100 WBC (Bld) 0.6 % Normal [facility] Comment on above: Order Comment: Speci men Type: BLOOD SPECIMENOrdering Facility: [facility] Address: [address] [place] [address] Performed By: #### 5 7021-8 ####[facility] LABCLIA [id number] [place] [address] Lymphocytes (Bld) [#/Vol] 1.86 10*3/uL Normal 1.00-4.00 [facility] Comment on above: Order Comment: Speci men Type: BLOOD SPECIMENOrdering Facility: [facility] Address: [address] [place] [address] Performed By: #### 5 7021-8 ####[facility] LABCLIA [id number] [place] [address] Lymphocytes/100 WBC (Bld) 18.9 % Normal [facility] Comment on above: Order Comment: Speci men Type: BLOOD SPECIMENOrdering Facility: [facility] Address: [address] [place] [address] Performed By: #### 5 7021-8 ####[facility] LABCLIA [id number] [place] [address] MCH (RBC) [Entitic mass] 33.2 pg Normal 26.0-34.0 [facility] Comment on above: Order Comment: Speci men Type: BLOOD SPECIMENOrdering Facility: [facility] Address: [address] [place] [address] Performed By: #### 5 7021-8 ####[facility] LABCLIA [id number] [place] [address] MCHC (RBC) [Mass/Vol] 32.6 g/dL Normal 30.5-36.0 [facility] Comment on above: Order Comment: Speci men Type: BLOOD SPECIMENOrdering Facility: [facility] Address: [address] [place] [address] Performed By: #### 5 7021-8 ####[facility] LABCLIA [id number] [place] [address] MCV (RBC) [Entitic vol] 102.0 fL High 80.0-100.0 [facility] Comment on above: Order Comment: Speci men Type: BLOOD SPECIMENOrdering Facility: [facility] Address: [address] [place] [address] Performed By: #### 5 7021-8 ####[facility] LABCLIA [id number] [place] [address] Monocytes (Bld) [#/Vol] 0.87 10*3/uL High <0.87 [facility] Comment on above: Order Comment: Speci men Type: BLOOD SPECIMENOrdering Facility: [facility] Address: [address] [place] [address] Performed By: #### 5 7021-8 ####[facility] LABCLIA [id number] [place] [address] Monocytes/100 WBC (Bld) 8.8 % Normal [facility] Comment on above: Order Comment: Speci men Type: BLOOD SPECIMENOrdering Facility: [facility] Address: [address] [place] [address] Performed By: #### 5 7021-8 ####[facility] LABCLIA [id number] [place] [address] Neutrophils (Bld) [#/Vol] 6.98 10*3/uL Normal 1.45-7.50 [facility] Comment on above: Order Comment: Speci men Type: BLOOD SPECIMENOrdering Facility: [facility] Address: [address] [place] [address] Performed By: #### 5 7021-8 ####[facility] LABCLIA [id number] [place] [address] Neutrophils/100 WBC (Bld) 70.8 % Normal [facility] Comment on above: Order Comment: Speci men Type: BLOOD SPECIMENOrdering Facility: [facility] Address: [address] [place] [address] Performed By: #### 5 7021-8 ####[facility] LABCLIA [id number] [place] [address] Nucleated RBC (Bld) [#/Vol] 10*3/uL Normal <0.01 [facility] Comment on above: Order Comment: Speci men Type: BLOOD SPECIMENOrdering Facility: [facility] Address: [address] [place] [address] Performed By: #### 5 7021-8 ####[facility] LABCLIA [id number] [place] [address] Nucleated RBC/100 WBC (Bld) [Ratio] 0.0 /100 WBC Normal [facility] Comment on above: Order Comment: Speci men Type: BLOOD SPECIMENOrdering Facility: [facility] Address: [address] [address] Performed By: #### 5 7021-8 ####[facility] LABCLIA [id number] [place] [address] Platelet mean volume (Bld) [Entitic vol] 10.2 fL Normal 9.0-12.7 [facility] Comment on above: Order Comment: Speci men Type: BLOOD SPECIMENOrdering Facility: [facility] Address: [address] [address] Performed By: #### 5 7021-8 ####[facility] LABCLIA [id number] [place] [address] Platelets (Bld) [#/Vol] 329 10*3/uL Normal 150-400 [facility] Comment on above: Order Comment: Speci men Type: BLOOD SPECIMENOrdering Facility: [facility] Address: [address] [place] [address] Performed By: #### 5 7021-8 ####[facility] LABIA [id number] [place] [address] RBC (Bld) [#/Vol] 3.52 10*6/uL Low 4.20-6.00 [facility] Comment on above: Order Comment: Speci men Type: BLOOD SPECIMENOrdering Facility: [facility] Address: [address] [place] [address] Performed By: #### 5 7021-8 ####[facility] LABCLIA [id number] [place] [address] WBC (Bld) [#/Vol] 9.86 10*3/uL Normal 3.70-11.00 [facility] Comment on above: Order Comment: Speci men Type: BLOOD SPECIMENOrdering Facility: [facility] Address: [address] [place] [address] Performed By: #### 5 7021-8 ####[facility] LABCLIA [id number] [place] [address] CNOVSPon 01-04-2023 CNOVSP Normal [facility] Cancer Ag19-9 SerPl-aCncon 0 01-04-2023 Cancer Ag 19-9 Qn 1947.0 [arb'U]/mL High <36.0 [facility] Comment on above: Order Comment: Speci men Type: BLOOD SPECIMENOrdering Facility: [facility] Address: [address] [address] Result Comment: [facility] er antigen 19-9 test is used as an aid in monitoring response to treatment or recurrence in patients with established pancreatic, hepatobiliary, or gastrointestinal malignancies. Clinical correlation is required.The CA 19-9 Antigen test was performed using the Gravity[employer] DXI paramagnetic particle chemiluminescent immunoassay method. Results obtained with different assay methods or kits cannot be used interchangeably. Performed By: #### 2 4108-3 ####[facility] LABCLIA [id number] [place] [address] [place] Comprehensive metabolic 2000 panelon 01-04-2023 Albumin [Mass/Vol] 4.1 g/dL Normal 3.9-4.9 [facility] Comment on above: Order Comment: Speci men Type: BLOOD SPECIMENOrdering Facility: [facility] Address: [address] [place] [address] Performed By: #### 2 4323-8 ####[facility] LABCLIA [id number] [place] [address] ALP [Catalytic activity/Vol] 138 U/L High 38-113 [facility] Comment on above: Order Comment: Speci men Type: BLOOD SPECIMENOrdering Facility: [facility] Address: [address] [place] [address] Performed By: #### 2 4323-8 ####[facility] LABCLIA [id number] [place] [address] ALT [Catalytic activity/Vol] 34 U/L Normal 10-54 [facility] Comment on above: Order Comment: Speci men Type: BLOOD SPECIMENOrdering Facility: [facility] Address: [address] [address] Performed By: #### 2 4323-8 ####[facility] LABCLIA [id number] [place] [address] Anion gap [Moles/Vol] 8 mmol/L Low 9-18 [facility] Comment on above: Order Comment: Speci men Type: BLOOD SPECIMENOrdering Facility: [facility] Address: [address] [address] Performed By: #### 2 4323-8 ####[facility] LABCLIA [id number] [place] [address] AST [Catalytic activity/Vol] 25 U/L Normal 14-40 [facility] Comment on above: Order Comment: Speci men Type: BLOOD SPECIMENOrdering Facility: [facility] Address: [address] [address] Performed By: #### 2 4323-8 ####[facility] LABCLIA [id number] [place] [address] Bilirubin [Mass/Vol] 0.9 mg/dL Normal 0.2-1.3 [facility] Comment on above: Order Comment: Speci men Type: BLOOD SPECIMENOrdering Facility: [facility] Address: [address] [address] Performed By: #### 2 4323-8 ####[facility] LABCLIA [id number] [place] [address] Calcium [Mass/Vol] 10.3 mg/dL High 8.5-10.2 [facility] Comment on above: Order Comment: Speci men Type: BLOOD SPECIMENOrdering Facility: [facility] Address: [address] [address] Performed By: #### 2 4323-8 ####[facility] LABCLIA [id number] [place] [address] Chloride [Moles/Vol] 104 mmol/L Normal 97-105 [facility] Comment on above: Order Comment: Speci men Type: BLOOD SPECIMENOrdering Facility: [facility] Address: [address] [place] [address] Performed By: #### 2 4323-8 ####[facility] LABCLIA [id number] [place] [address] CO2 [Moles/Vol] 24 mmol/L Normal 22-30 [facility] Comment on above: Order Comment: Speci men Type: BLOOD SPECIMENOrdering Facility: [facility] Address: [address] [place] [address] Performed By: #### 2 4323-8 ####[facility] LABCLIA [id number] [place] [address] Creatinine [Mass/Vol] 0.80 mg/dL Normal 0.73-1.22 [facility] Comment on above: Order Comment: Speci men Type: BLOOD SPECIMENOrdering Facility: [facility] Address: [address] [place] [address] Performed By: #### 2 4323-8 ####[facility] LABCLIA [id number] [place] [address] ESTIMATED GLOMERULAR FILTRATION RATE 95 mL/min/1.73m??? Normal >=60 [facility] Comment on above: Order Comment: Speci men Type: BLOOD SPECIMENOrdering Facility: [facility] Address: [address] [place] [address] Result Comment: Kathy mated Glomerular Filtration Rate [...] actual GFR. Performed By: #### 2 4323-8 ####[facility] LABCLIA [id number] [place] [address] Glucose [Mass/Vol] 188 mg/dL High 74-99 [facility] Comment on above: Order Comment: Speci men Type: BLOOD SPECIMENOrdering Facility: [facility] Address: [address] [place] [address] Result Comment: The [place] [employer] (ADA) provides guidance for cutoff [...] Standards of Medical Care in Diabetes 2016, [place] [employer]. Diabetes Care. 2016.39(Suppl 1). Performed By: #### 2 4323-8 ####[facility] LABCLIA [id number] [place] [address] Potassium [Moles/Vol] 4.5 mmol/L Normal 3.7-5.1 [facility] Comment on above: Order Comment: Speci men Type: BLOOD SPECIMENOrdering Facility: [facility] Address: [address] [place] [address] Performed By: #### 2 4323-8 ####[facility] LABCLIA [id number] [place] [address] Protein [Mass/Vol] 7.0 g/dL Normal 6.3-8.0 [facility] Comment on above: Order Comment: Speci men Type: BLOOD SPECIMENOrdering Facility: [facility] Address: [address] [place] [address] Performed By: #### 2 4323-8 ####[facility] LABCLIA [id number] [place] [address] Sodium [Moles/Vol] 136 mmol/L Normal 136-144 [facility] Comment on above: Order Comment: Speci men Type: BLOOD SPECIMENOrdering Facility: [facility] Address: [address] [address] Performed By: #### 2 4323-8 ####[facility] LABCLIA [id number] [place] [address] Urea nitrogen [Mass/Vol] 21 mg/dL Normal 9-24 [facility] Comment on above: Order Comment: Speci men Type: BLOOD SPECIMENOrdering Facility: [facility] Address: [address] [address] Performed By: #### 2 4323-8 ####[facility] LABCLIA [id number] [place] [address] CBC W Auto Differential pane l (Bld)on 12-21-2022 Basophils (Bld) [#/Vol] 0.03 10*3/uL Normal <0.11 [facility] Comment on above: Order Comment: Speci men Type: BLOOD SPECIMENOrdering Facility: [facility] Address: [address] [address] Performed By: #### 5 7021-8 ####[facility] LABIA [id number] [place] [address] Basophils/100 WBC (Bld) 0.8 % Normal [facility] Comment on above: Order Comment: Speci men Type: BLOOD SPECIMENOrdering Facility: [facility] Address: [address] [address] Performed By: #### 5 7021-8 ####[facility] LABCLIA [id number] [place] [address] Differential cell count method Nom (Bld) Auto Normal [facility] Comment on above: Order Comment: Speci men Type: BLOOD SPECIMENOrdering Facility: [facility] Address: [address] [address] Performed By: #### 5 7021-8 ####[facility] LABCLIA [id number] [place] [address] Eosinophils (Bld) [#/Vol] 10*3/uL Normal <0.46 [facility] Comment on above: Order Comment: Speci men Type: BLOOD SPECIMENOrdering Facility: [facility] Address: [address] [place] [address] Performed By: #### 5 7021-8 ####[facility] LABCLIA [id number] [place] [address] Eosinophils/100 WBC (Bld) 0.0 % Normal [facility] Comment on above: Order Comment: Speci men Type: BLOOD SPECIMENOrdering Facility: [facility] Address: [address] [place] [address] Performed By: #### 5 7021-8 ####[facility] LABCLIA [id number] [place] [address] Erythrocyte distribution width (RBC) [Ratio] 17.4 % High 11.5-15.0 [facility] Comment on above: Order Comment: Speci men Type: BLOOD SPECIMENOrdering Facility: [facility] Address: [address] [place] [address] Performed By: #### 5 7021-8 ####[facility] LABCLIA [id number] [place] [address] Hematocrit (Bld) [Volume fraction] 30.0 % Low 39.0-51.0 [facility] Comment on above: Order Comment: Speci men Type: BLOOD SPECIMENOrdering Facility: [facility] Address: [address] [place] [address] Performed By: #### 5 7021-8 ####[facility] LABCLIA [id number] [place] [address] Hemoglobin (Bld) [Mass/Vol] 9.7 g/dL Low 13.0-17.0 [facility] Comment on above: Order Comment: Speci men Type: BLOOD SPECIMENOrdering Facility: [facility] Address: [address] [address] Performed By: #### 5 7021-8 ####[facility] LABCLIA [id number] [place] [address] Immature granulocytes (Bld) [#/Vol] 0.05 10*3/uL Normal <0.10 [facility] Comment on above: Order Comment: Speci men Type: BLOOD SPECIMENOrdering Facility: [facility] Address: [address] [address] Performed By: #### 5 7021-8 ####[facility] LABCLIA [id number] [place] [address] Immature granulocytes/100 WBC (Bld) 1.3 % Normal [facility] Comment on above: Order Comment: Speci men Type: BLOOD SPECIMENOrdering Facility: [facility] Address: [address] [place] [address] Performed By: #### 5 7021-8 ####[facility] LABCLIA [id number] [place] [address] Lymphocytes (Bld) [#/Vol] 1.41 10*3/uL Normal 1.00-4.00 [facility] Comment on above: Order Comment: Speci men Type: BLOOD SPECIMENOrdering Facility: [facility] Address: [address] [address] Performed By: #### 5 7021-8 ####[facility] LABCLIA [id number] [place] [address] Lymphocytes/100 WBC (Bld) 37.6 % Normal [facility] Comment on above: Order Comment: Speci men Type: BLOOD SPECIMENOrdering Facility: [facility] Address: [address] [place] [address] Performed By: #### 5 7021-8 ####[facility] LABCLIA [id number] [place] [address] MCH (RBC) [Entitic mass] 32.6 pg Normal 26.0-34.0 [facility] Comment on above: Order Comment: Speci men Type: BLOOD SPECIMENOrdering Facility: [facility] Address: [address] [place] [address] Performed By: #### 5 7021-8 ####[facility] LABCLIA [id number] [place] [address] MCHC (RBC) [Mass/Vol] 32.3 g/dL Normal 30.5-36.0 [facility] Comment on above: Order Comment: Speci men Type: BLOOD SPECIMENOrdering Facility: [facility] Address: [address] [place] [address] Performed By: #### 5 7021-8 ####[facility] LABIA [id number] [place] [address] MCV (RBC) [Entitic vol] 100.7 fL High 80.0-100.0 [facility] Comment on above: Order Comment: Speci men Type: BLOOD SPECIMENOrdering Facility: [facility] Address: [address] [place] [address] Performed By: #### 5 7021-8 ####[facility] LABIA [id number] [place] [address] Monocytes (Bld) [#/Vol] 0.32 10*3/uL Normal <0.87 [facility] Comment on above: Order Comment: Speci men Type: BLOOD SPECIMENOrdering Facility: [facility] Address: [address] [place] [address] Performed By: #### 5 7021-8 ####[facility] LABIA [id number] [place] [address] Monocytes/100 WBC (Bld) 8.5 % Normal [facility] Comment on above: Order Comment: Speci men Type: BLOOD SPECIMENOrdering Facility: [facility] Address: [address] [address] Performed By: #### 5 7021-8 ####[facility] LABCLIA [id number] [place] [address] Neutrophils (Bld) [#/Vol] 1.94 10*3/uL Normal 1.45-7.50 [facility] Comment on above: Order Comment: Speci men Type: BLOOD SPECIMENOrdering Facility: [facility] Address: [address] [address] Performed By: #### 5 7021-8 ####[facility] LABCLIA [id number] [place] [address] Neutrophils/100 WBC (Bld) 51.8 % Normal [facility] Comment on above: Order Comment: Speci men Type: BLOOD SPECIMENOrdering Facility: [facility] Address: [address] [address] Performed By: #### 5 7021-8 ####[facility] LABCLIA [id number] [place] [address] Nucleated RBC (Bld) [#/Vol] 10*3/uL Normal <0.01 [facility] Comment on above: Order Comment: Speci men Type: BLOOD SPECIMENOrdering Facility: [facility] Address: [address] [place] [address] Performed By: #### 5 7021-8 ####[facility] LABCLIA [id number] [place] [address] Nucleated RBC/100 WBC (Bld) [Ratio] 0.0 /100 WBC Normal [facility] Comment on above: Order Comment: Speci men Type: BLOOD SPECIMENOrdering Facility: [facility] Address: [address] [place] [address] Performed By: #### 5 7021-8 ####[facility] LABCLIA [id number] [place] [address] Platelet mean volume (Bld) [Entitic vol] 9.5 fL Normal 9.0-12.7 [facility] Comment on above: Order Comment: Speci men Type: BLOOD SPECIMENOrdering Facility: [facility] Address: [address] [place] [address] Performed By: #### 5 7021-8 ####[facility] LABCLIA [id number] [place] [address] Platelets (Bld) [#/Vol] 365 10*3/uL Normal 150-400 [facility] Comment on above: Order Comment: Speci men Type: BLOOD SPECIMENOrdering Facility: [facility] Address: [address] [place] [address] Performed By: #### 5 7021-8 ####[facility] LABIA [id number] [place] [address] RBC (Bld) [#/Vol] 2.98 10*6/uL Low 4.20-6.00 [facility] Comment on above: Order Comment: Speci men Type: BLOOD SPECIMENOrdering Facility: [facility] Address: [address] [place] [address] Performed By: #### 5 7021-8 ####[facility] LABIA [id number] [place] [address] WBC (Bld) [#/Vol] 3.75 10*3/uL Normal 3.70-11.00 [facility] Comment on above: Order Comment: Speci men Type: BLOOD SPECIMENOrdering Facility: [facility] Address: [address] [place] [address] Performed By: #### 5 7021-8 ####[facility] LABIA [id number] [place] [address] CNOVSPon 12-21-2022 CNOVSP Normal [facility] CNPNon 12-21-2022 CNPN Normal [facility] Cancer Ag19-9 SerPl-aCncon 0 12-21-2022 Cancer Ag 19-9 Qn 1757.0 [arb'U]/mL High <36.0 [facility] Comment on above: Order Comment: Speci men Type: BLOOD SPECIMENOrdering Facility: [facility] Address: [address] [place] [address] Result Comment: [facility] er antigen 19-9 test is used as an aid in monitoring response to treatment or recurrence in patients with established pancreatic, hepatobiliary, or gastrointestinal malignancies. Clinical correlation is required.The CA 19-9 Antigen test was performed using the [employer] DXI paramagnetic particle chemiluminescent immunoassay method. Results obtained with different assay methods or kits cannot be used interchangeably. Performed By: #### 2 4108-3 ####[facility] LABCLIA [id number] [place] [address] [place] Comprehensive metabolic 2000 panelon 12-21-2022 Albumin [Mass/Vol] 3.9 g/dL Normal 3.9-4.9 [facility] Comment on above: Order Comment: Speci men Type: BLOOD SPECIMENOrdering Facility: [facility] Address: [address] [address] Performed By: #### 2 4323-8 ####[facility] LABCLIA [id number] [place] [address] ALP [Catalytic activity/Vol] 131 U/L High 38-113 [facility] Comment on above: Order Comment: Speci men Type: BLOOD SPECIMENOrdering Facility: [facility] Address: [address] [address] Performed By: #### 2 4323-8 ####[facility] LABCLIA [id number] [place] [address] ALT [Catalytic activity/Vol] 27 U/L Normal 10-54 [facility] Comment on above: Order Comment: Speci men Type: BLOOD SPECIMENOrdering Facility: [facility] Address: [address] [address] Performed By: #### 2 4323-8 ####[facility] LABCLIA [id number] [place] [address] Anion gap [Moles/Vol] 11 mmol/L Normal 9-18 [facility] Comment on above: Order Comment: Speci men Type: BLOOD SPECIMENOrdering Facility: [facility] Address: [address] [place] [address] Performed By: #### 2 4323-8 ####[facility] LABCLIA [id number] [place] [address] AST [Catalytic activity/Vol] 25 U/L Normal 14-40 [facility] Comment on above: Order Comment: Speci men Type: BLOOD SPECIMENOrdering Facility: [facility] Address: [address] [place] [address] Performed By: #### 2 4323-8 ####[facility] LABCLIA [id number] [place] [address] Bilirubin [Mass/Vol] 0.8 mg/dL Normal 0.2-1.3 [facility] Comment on above: Order Comment: Speci men Type: BLOOD SPECIMENOrdering Facility: [facility] Address: [address] [place] [address] Performed By: #### 2 4323-8 ####[facility] LABCLIA [id number] [place] [address] Calcium [Mass/Vol] 10.5 mg/dL High 8.5-10.2 [facility] Comment on above: Order Comment: Speci men Type: BLOOD SPECIMENOrdering Facility: [facility] Address: [address] [place] [address] Performed By: #### 2 4323-8 ####[facility] LABCLIA [id number] [place] [address] Chloride [Moles/Vol] 102 mmol/L Normal 97-105 [facility] Comment on above: Order Comment: Speci men Type: BLOOD SPECIMENOrdering Facility: [facility] Address: [address] [address] Performed By: #### 2 4323-8 ####[facility] LABCLIA [id number] [place] [address] CO2 [Moles/Vol] 22 mmol/L Normal 22-30 [facility] Comment on above: Order Comment: Speci men Type: BLOOD SPECIMENOrdering Facility: [facility] Address: [address] [place] [address] Performed By: #### 2 4323-8 ####[facility] LABCLIA [id number] [place] [address] Creatinine [Mass/Vol] 0.92 mg/dL Normal 0.73-1.22 [facility] Comment on above: Order Comment: Speci men Type: BLOOD SPECIMENOrdering Facility: [facility] Address: [address] [place] [address] Performed By: #### 2 4323-8 ####[facility] LABCLIA [id number] [place] [address] ESTIMATED GLOMERULAR FILTRATION RATE 89 mL/min/1.73m??? Normal >=60 [facility] Comment on above: Order Comment: Speci men Type: BLOOD SPECIMENOrdering Facility: [facility] Address: [address] [place] [address] Result Comment: Kathy mated Glomerular Filtration Rate [...] actual GFR. Performed By: #### 2 4323-8 ####[facility] LABCLIA [id number] [place] [address] Glucose [Mass/Vol] 192 mg/dL High 74-99 [facility] Comment on above: Order Comment: Speci men Type: BLOOD SPECIMENOrdering Facility: [facility] Address: [address] [place] [address] Result Comment: The [place] [employer] (ADA) provides guidance for cutoff [...] Standards of Medical Care in Diabetes 2016, [place] [employer]. Diabetes Care. 2016.39(Suppl 1). Performed By: #### 2 4323-8 ####[facility] LABCLIA [id number] [place] [address] Potassium [Moles/Vol] 4.0 mmol/L Normal 3.7-5.1 [facility] Comment on above: Order Comment: Speci men Type: BLOOD SPECIMENOrdering Facility: [facility] Address: [address] [place] [address] Performed By: #### 2 4323-8 ####[facility] LABCLIA [id number] [place] [address] Protein [Mass/Vol] 7.0 g/dL Normal 6.3-8.0 [facility] Comment on above: Order Comment: Speci men Type: BLOOD SPECIMENOrdering Facility: [facility] Address: [address] [place] [address] Performed By: #### 2 4323-8 ####[facility] LABCLIA [id number] [place] [address] Sodium [Moles/Vol] 135 mmol/L Low 136-144 [facility] Comment on above: Order Comment: Speci men Type: BLOOD SPECIMENOrdering Facility: [facility] Address: [address] [id number] Performed By: #### 2 4323-8 ####[facility] LABCLIA [id number] [place] [address] Urea nitrogen [Mass/Vol] 22 mg/dL Normal 9-24 [facility] Comment on above: Order Comment: Speci men Type: BLOOD SPECIMENOrdering Facility: [facility] Address: [address] [place] [address] Performed By: #### 2 4323-8 ####[facility] LABCLIA [id number] [place] [address] CT cervical spine wo conon 0 12-15-2022 CT cervical spine wo con [facility] Main [place] [address] [place], [place] [address] CT Scan Report Signed Patient: Uriel Anderson MR#: [id number] [birth year] : 1950 Acct:[id number] Age/Sex: 72 / M ADM Date: 12/15/22 Loc: ER Room: Type: PRE ER Attending Dr: Copies to: Jemma Padilla APRN Ordering Provider: Jemma Padilla APRN Date of Service: 12/15/22 CT/CT head/brain wo con: injury ([id number]) CT/CT cervical spine wo con: fall CT [...] FRACTURE Impression dictated by: Ronnie Saldaña Jr., D.OKristie12/15/2022 3:56 PM Dictation Location: [place] [address] Transcribed By: [facility] 12/15/22 155 Dictated By: Ronnie Saldaña Jr, DO 12/15/22 1551 Signed By: 12/15/22 1556 Normal [facility] CBC W Auto Differential pane l (Bld)on 12-14-2022 Basophils (Bld) [#/Vol] 0.03 10*3/uL <0.11 k/uL [facility] Basophils (Bld) [#/Vol] 0.03 10*3/uL Normal <0.11 [facility] Comment on above: Order Comment: Speci men Type: BLOOD SPECIMENOrdering Facility: [facility] Address: [address] [place] [address] Performed By: #### 5 7021-8 ####[facility] LABCLIA [id number] [place] [address] Basophils/100 WBC (Bld) 0.5 % [facility] Basophils/100 WBC (Bld) 0.5 % Normal [facility] Comment on above: Order Comment: Speci men Type: BLOOD SPECIMENOrdering Facility: [facility] Address: [address] [place] [address] Performed By: #### 5 7021-8 ####[facility] LABCLIA [id number] [place] [address] Differential cell count method Nom (Bld) Auto [facility] Differential cell count method Nom (Bld) Auto Normal [facility] Comment on above: Order Comment: Speci men Type: BLOOD SPECIMENOrdering Facility: [facility] Address: [address] [address] Performed By: #### 5 7021-8 ####[facility] LABCLIA [id number] [place] [address] Eosinophils (Bld) [#/Vol] <0.46 k/uL [facility] Eosinophils (Bld) [#/Vol] 10*3/uL Normal <0.46 [facility] Comment on above: Order Comment: Speci men Type: BLOOD SPECIMENOrdering Facility: [facility] Address: [address] [place] [address] Performed By: #### 5 7021-8 ####[facility] LABIA [id number] [place] [address] Eosinophils/100 WBC (Bld) 0.2 % [facility] Eosinophils/100 WBC (Bld) 0.2 % Normal [facility] Comment on above: Order Comment: Speci men Type: BLOOD SPECIMENOrdering Facility: [facility] Address: [address] [place] [address] Performed By: #### 5 7021-8 ####[facility] LABCLIA [id number] [place] [address] Erythrocyte distribution width (RBC) [Ratio] 19.2 % High 11.5 - 15.0 % [facility] Erythrocyte distribution width (RBC) [Ratio] 19.2 % High 11.5-15.0 [facility] Comment on above: Order Comment: Speci men Type: BLOOD SPECIMENOrdering Facility: [facility] Address: [address] [place] [address] Performed By: #### 5 7021-8 ####[facility] LABCLIA [id number] [place] [address] Hematocrit (Bld) [Volume fraction] 33.4 % Low 39.0 - 51.0 % [facility] Hematocrit (Bld) [Volume fraction] 33.4 % Low 39.0-51.0 [facility] Comment on above: Order Comment: Speci men Type: BLOOD SPECIMENOrdering Facility: [facility] Address: [address] [place] [address] Performed By: #### 5 7021-8 ####[facility] LABCLIA [id number] [place] [address] Hemoglobin (Bld) [Mass/Vol] 10.5 g/dL Low 13.0 - 17.0 g/dL [facility] Hemoglobin (Bld) [Mass/Vol] 10.5 g/dL Low 13.0-17.0 [facility] Comment on above: Order Comment: Speci men Type: BLOOD SPECIMENOrdering Facility: [facility] Address: [address] [place] [address] Performed By: #### 5 7021-8 ####[facility] LABCLIA [id number] [place] [address] Immature granulocytes (Bld) [#/Vol] <0.10 k/uL [facility] Immature granulocytes (Bld) [#/Vol] 10*3/uL Normal <0.10 [facility] Comment on above: Order Comment: Speci men Type: BLOOD SPECIMENOrdering Facility: [facility] Address: [address] [place] [address] Performed By: #### 5 7021-8 ####[facility] LABCLIA [id number] [place] [address] Immature granulocytes/100 WBC (Bld) 0.3 % [facility] Immature granulocytes/100 WBC (Bld) 0.3 % Normal [facility] Comment on above: Order Comment: Speci men Type: BLOOD SPECIMENOrdering Facility: [facility] Address: [address] [place] [address] Performed By: #### 5 7021-8 ####[facility] LABCLIA [id number] [place] [address] Lymphocytes (Bld) [#/Vol] 1.25 10*3/uL 1.00 - 4.00 k/uL [facility] Lymphocytes (Bld) [#/Vol] 1.25 10*3/uL Normal 1.00-4.00 [facility] Comment on above: Order Comment: Speci men Type: BLOOD SPECIMENOrdering Facility: [facility] Address: [address] [place] [address] Performed By: #### 5 7021-8 ####[facility] LABCLIA [id number] [place] [address] Lymphocytes/100 WBC (Bld) 19.1 % [facility] Lymphocytes/100 WBC (Bld) 19.1 % Normal [facility] Comment on above: Order Comment: Speci men Type: BLOOD SPECIMENOrdering Facility: [facility] Address: [address] [place] [address] Performed By: #### 5 7021-8 ####[facility] LABCLIA [id number] [place] [address] MCH (RBC) [Entitic mass] 32.0 pg 26.0 - 34.0 pg [facility] MCH (RBC) [Entitic mass] 32.0 pg Normal 26.0-34.0 [facility] Comment on above: Order Comment: Speci men Type: BLOOD SPECIMENOrdering Facility: [facility] Address: [address] [place] [address] Performed By: #### 5 7021-8 ####[facility] LABCLIA [id number] [place] [address] MCHC (RBC) [Mass/Vol] 31.4 g/dL 30.5 - 36.0 g/dL [facility] MCHC (RBC) [Mass/Vol] 31.4 g/dL Normal 30.5-36.0 [facility] Comment on above: Order Comment: Speci men Type: BLOOD SPECIMENOrdering Facility: [facility] Address: [address] [place] [address] Performed By: #### 5 7021-8 ####[facility] LABCLIA [id number] [place] [address] MCV (RBC) [Entitic vol] 101.8 fL High 80.0 - 100.0 fL [facility] MCV (RBC) [Entitic vol] 101.8 fL High 80.0-100.0 [facility] Comment on above: Order Comment: Speci men Type: BLOOD SPECIMENOrdering Facility: [facility] Address: [address] [place] [address] Performed By: #### 5 7021-8 ####[facility] LABCLIA [id number] [place] [address] Monocytes (Bld) [#/Vol] 0.56 10*3/uL <0.87 k/uL [facility] Monocytes (Bld) [#/Vol] 0.56 10*3/uL Normal <0.87 [facility] Comment on above: Order Comment: Speci men Type: BLOOD SPECIMENOrdering Facility: [facility] Address: [address] [address] Performed By: #### 5 7021-8 ####[facility] LABCLIA [id number] [place] [address] Monocytes/100 WBC (Bld) 8.6 % [facility] Monocytes/100 WBC (Bld) 8.6 % Normal [facility] Comment on above: Order Comment: Speci men Type: BLOOD SPECIMENOrdering Facility: [facility] Address: [address] [place] [address] Performed By: #### 5 7021-8 ####[facility] LABCLIA [id number] [place] [address] Neutrophils (Bld) [#/Vol] 4.67 10*3/uL 1.45 - 7.50 k/uL [facility] Neutrophils (Bld) [#/Vol] 4.67 10*3/uL Normal 1.45-7.50 [facility] Comment on above: Order Comment: Speci men Type: BLOOD SPECIMENOrdering Facility: [facility] Address: [address] [address] Performed By: #### 5 7021-8 ####[facility] LABIA [id number] [place] [address] Neutrophils/100 WBC (Bld) 71.3 % [facility] Neutrophils/100 WBC (Bld) 71.3 % Normal [facility] Comment on above: Order Comment: Speci men Type: BLOOD SPECIMENOrdering Facility: [facility] Address: [address] [place] [address] Performed By: #### 5 7021-8 ####[facility] [id number] [place] [address] Nucleated RBC (Bld) [#/Vol] <0.01 k/uL [facility] Nucleated RBC (Bld) [#/Vol] 10*3/uL Normal <0.01 [facility] Comment on above: Order Comment: Speci men Type: BLOOD SPECIMENOrdering Facility: [facility] Address: [address] [place] [address] Performed By: #### 5 7021-8 ####[facility] LABIA [id number] [place] [address] Nucleated RBC/100 WBC (Bld) [Ratio] 0.0 /100 WBC [facility] Nucleated RBC/100 WBC (Bld) [Ratio] 0.0 /100 WBC Normal [facility] Comment on above: Order Comment: Speci men Type: BLOOD SPECIMENOrdering Facility: [facility] Address: [address] [place] [address] Performed By: #### 5 7021-8 ####[facility] LABIA [id number] [place] [address] Platelet mean volume (Bld) [Entitic vol] 9.3 fL 9.0 - 12.7 fL [facility] Platelet mean volume (Bld) [Entitic vol] 9.3 fL Normal 9.0-12.7 [facility] Comment on above: Order Comment: Speci men Type: BLOOD SPECIMENOrdering Facility: [facility] Address: [address] [place] [address] Performed By: #### 5 7021-8 ####[facility] LABCLIA [id number] [place] [address] Platelets (Bld) [#/Vol] 362 10*3/uL 150 - 400 k/uL [facility] Platelets (Bld) [#/Vol] 362 10*3/uL Normal 150-400 [facility] Comment on above: Order Comment: Speci men Type: BLOOD SPECIMENOrdering Facility: [facility] Address: [address] [place] [address] Performed By: #### 5 7021-8 ####[facility] LABCLIA [id number] [place] [address] RBC (Bld) [#/Vol] 3.28 10*6/uL Low 4.20 - 6.0 0 m/uL [facility] RBC (Bld) [#/Vol] 3.28 10*6/uL Low 4.20-6.00 [facility] Comment on above: Order Comment: Speci men Type: BLOOD SPECIMENOrdering Facility: [facility] Address: [address] [place] [address] Performed By: #### 5 7021-8 ####[facility] LABCLIA [id number] [place] [address] WBC (Bld) [#/Vol] 6.54 10*3/uL 3.70 - 11.00 k/uL [facility] WBC (Bld) [#/Vol] 6.54 10*3/uL Normal 3.70-11.00 [facility] Comment on above: Order Comment: Speci men Type: BLOOD SPECIMENOrdering Facility: [facility] Address: [address] [place] [address] Performed By: #### 5 7021-8 ####[facility] LABCLIA [id number] [place] [address] CNOVSPon 12-14-2022 CNOVSP Normal [facility] Cancer Ag19-9 SerPl-aCncon 0 12-14-2022 Cancer Ag 19-9 Qn 1463.0 [arb'U]/mL High <36.0 [facility] Comment on above: Order Comment: Speci men Type: BLOOD SPECIMENOrdering Facility: [facility] Address: [address] [place] [address] Result Comment: [facility] er antigen 19-9 test is used as an aid in monitoring response to treatment or recurrence in patients with established pancreatic, hepatobiliary, or gastrointestinal malignancies. Clinical correlation is required.The CA 19-9 Antigen test was performed using the Gravityel DXI paramagnetic particle chemiluminescent immunoassay method. Results obtained with different assay methods or kits cannot be used interchangeably. Performed By: #### 2 4108-3 ####[facility] LABCLIA [id number] [place] [address] [place] Comprehensive metabolic 2000 panel 12-14-2022 Albumin [Mass/Vol] 3.8 g/dL Low 3.9 - 4.9 g/dL [facility] Albumin [Mass/Vol] 3.8 g/dL Low 3.9-4.9 [facility] Comment on above: Order Comment: Speci men Type: BLOOD SPECIMENOrdering Facility: [facility] Address: [address] [place] [address] Performed By: #### 2 4323-8 ####[facility] LABCLIA [id number] [place] [address] ALP [Catalytic activity/Vol] 138 U/L High 38 - 113 U/L [facility] ALP [Catalytic activity/Vol] 138 U/L High 38-113 [facility] Comment on above: Order Comment: Speci men Type: BLOOD SPECIMENOrdering Facility: [facility] Address: [address] [place] [address] Performed By: #### 2 4323-8 ####[facility] LABCLIA [id number] [place] [address] ALT [Catalytic activity/Vol] 25 U/L 10 - 54 U/L [facility] ALT [Catalytic activity/Vol] 25 U/L Normal 10-54 [facility] Comment on above: Order Comment: Speci men Type: BLOOD SPECIMENOrdering Facility: [facility] Address: [address] [place] [address] Performed By: #### 2 4323-8 ####[facility] LABCLIA [id number] [place] [address] Anion gap [Moles/Vol] 8 mmol/L Low 9 - 18 mmol/L [facility] Anion gap [Moles/Vol] 8 mmol/L Low 9-18 [facility] Comment on above: Order Comment: Speci men Type: BLOOD SPECIMENOrdering Facility: [facility] Address: [address] [place] [address] Performed By: #### 2 4323-8 ####[facility] LABCLIA [id number] [place] [address] AST [Catalytic activity/Vol] 22 U/L 14 - 40 U/L [facility] AST [Catalytic activity/Vol] 22 U/L Normal 14-40 [facility] Comment on above: Order Comment: Speci men Type: BLOOD SPECIMENOrdering Facility: [facility] Address: [address] [place] [address] Performed By: #### 2 4323-8 ####[facility] LABCLIA [id number] [place] [address] Bilirubin [Mass/Vol] 0.9 mg/dL 0.2 - 1 .3 mg/dL [facility] Bilirubin [Mass/Vol] 0.9 mg/dL Normal 0.2-1.3 [facility] Comment on above: Order Comment: Speci men Type: BLOOD SPECIMENOrdering Facility: [facility] Address: [address] [place] [address] Performed By: #### 2 4323-8 ####[facility] LABCLIA [id number] [place] [address] Calcium [Mass/Vol] 10.5 mg/dL High 8.5 - 10. 2 mg/dL [facility] Calcium [Mass/Vol] 10.5 mg/dL High 8.5-10.2 [facility] Comment on above: Order Comment: Speci men Type: BLOOD SPECIMENOrdering Facility: [facility] Address: [address] [place] [address] Performed By: #### 2 4323-8 ####[facility] LABIA [id number] [place] [address] Chloride [Moles/Vol] 104 mmol/L 97 - 10 5 mmol/L [facility] Chloride [Moles/Vol] 104 mmol/L Normal 97-105 [facility] Comment on above: Order Comment: Speci men Type: BLOOD SPECIMENOrdering Facility: [facility] Address: [address] [place] [address] Performed By: #### 2 4323-8 ####[facility] LABIA [id number] [place] [address] CO2 [Moles/Vol] 24 mmol/L 22 - 30 mmol/L [facility] CO2 [Moles/Vol] 24 mmol/L Normal 22-30 [facility] Comment on above: Order Comment: Speci men Type: BLOOD SPECIMENOrdering Facility: [facility] Address: [address] [place] [address] Performed By: #### 2 4323-8 ####[facility] LABIA [id number] [place] [address] Creatinine [Mass/Vol] 0.85 mg/dL 0.73 - 1.22 mg/dL [facility] Creatinine [Mass/Vol] 0.85 mg/dL Normal 0.73-1.22 [facility] Comment on above: Order Comment: Speci men Type: BLOOD SPECIMENOrdering Facility: [facility] Address: [address] [place] [address] Performed By: #### 2 4323-8 ####[facility] LABCLIA [id number] [place] [address] Estimated Glomerular Filtration Rate 93 mL/min/1.73m >=60 mL/min/1.73 m [facility] ESTIMATED GLOMERULAR FILTRATION RATE 93 mL/min/1.73m??? Normal >=60 [facility] Comment on above: Order Comment: Noemí hoff Type: BLOOD SPECIMENOrdering Facility: [facility] Address: [address] [phone] Result Comment: Kathy mated Glomerular Filtration Rate [...] actual GFR. Performed By: #### 2 4323-8 ####[facility] LABCLIA [id number] [place] [address] Glucose [Mass/Vol] 158 mg/dL High 74 - 99 mg/dL [facility] Glucose [Mass/Vol] 158 mg/dL High 74-99 [facility] Comment on above: Order Comment: Noemí hoff Type: BLOOD SPECIMENOrdering Facility: [facility] Address: [address] [place] [phone] Result Comment: The [place] [employer] (ADA) provides guidance for cutoff [...] Standards of Medical Care in Diabetes 2016, [place] [employer]. Diabetes Care. 2016.39(Suppl 1). Performed By: #### 2 4323-8 ####[facility] LABCLIA [id number] [place] [address] Potassium [Moles/Vol] 4.1 mmol/L 3.7 - 5.1 mmol/L [facility] Potassium [Moles/Vol] 4.1 mmol/L Normal 3.7-5.1 [facility] Comment on above: Order Comment: Speci men Type: BLOOD SPECIMENOrdering Facility: [facility] Address: [address] [address] Performed By: #### 2 4323-8 ####[facility] LABCLIA [id number] [place] [address] Protein [Mass/Vol] 7.0 g/dL 6.3 - 8.0 g/dL [facility] Protein [Mass/Vol] 7.0 g/dL Normal 6.3-8.0 [facility] Comment on above: Order Comment: Speci men Type: BLOOD SPECIMENOrdering Facility: [facility] Address: [address] [address] Performed By: #### 2 4323-8 ####[facility] LABIA [id number] [place] [address] Sodium [Moles/Vol] 136 mmol/L 136 - 144 mmol/L [facility] Sodium [Moles/Vol] 136 mmol/L Normal 136-144 [facility] Comment on above: Order Comment: Speci men Type: BLOOD SPECIMENOrdering Facility: [facility] Address: [address] [address] Performed By: #### 2 4323-8 ####[facility] LABIA [id number] [place] [address] Urea nitrogen [Mass/Vol] 16 mg/dL 9 - 24 mg/dL [facility] Urea nitrogen [Mass/Vol] 16 mg/dL Normal 9-24 [facility] Comment on above: Order Comment: Speci men Type: BLOOD SPECIMENOrdering Facility: [facility] Address: [address] [place] [address] Performed By: #### 2 4323-8 ####[facility] LABCLIA [id number] [place] [address] CBC W Auto Differential pane l (Bld)on 12-05-2022 Anisocytosis Ql (Bld) Present Normal [facility] Comment on above: Order Comment: Speci men Type: BLOOD SPECIMENOrdering Facility: [facility] Address: [address] [address] Performed By: #### 5 7021-8 ####[facility] LABCLIA [id number] [address] LABCLIA [id number] [place] [address] [place] Basophils (Bld) [#/Vol] 0.00 10*3/uL Normal <0.11 [facility] Comment on above: Order Comment: Speci men Type: BLOOD SPECIMENOrdering Facility: [facility] Address: [address] [place] [address] Performed By: #### 5 7021-8 ####[facility] LABCLIA [id number] [address] LABCLIA [id number] [place] [address] [place] Basophils/100 WBC (Bld) 0.0 % Normal [facility] Comment on above: Order Comment: Speci men Type: BLOOD SPECIMENOrdering Facility: [facility] Address: [address] [place] [address] Performed By: #### 5 7021-8 ####[facility] LABCLIA [id number] [address] LABCLIA [id number] [place] [address] [place] Differential cell count method Nom (Bld) Manual Normal [facility] Comment on above: Order Comment: Speci men Type: BLOOD SPECIMENOrdering Facility: [facility] Address: [address] [place] [address] Performed By: #### 5 7021-8 ####[facility] LABCLIA [id number] [address] LABCLIA [id number] [place] [address] [place] Eosinophils (Bld) [#/Vol] 0.05 10*3/uL Normal <0.46 [facility] Comment on above: Order Comment: Speci men Type: BLOOD SPECIMENOrdering Facility: [facility] Address: [address] [place] [address] Performed By: #### 5 7021-8 ####[facility] LABCLIA [id number] [address] LABCLIA [id number] [place] [address] [place] Eosinophils/100 WBC (Bld) 0.9 % Normal [facility] Comment on above: Order Comment: Speci men Type: BLOOD SPECIMENOrdering Facility: [facility] Address: [address] [place], [place] [address] Performed By: #### 5 7021-8 ####[facility] LABCLIA [id number] [address] LABCLIA [id number] [place] [address] [place] Erythrocyte distribution width (RBC) [Ratio] 15.9 % High 11.5-15.0 [facility] Comment on above: Order Comment: Speci men Type: BLOOD SPECIMENOrdering Facility: [facility] Address: [address] [place], [place] [address] Performed By: #### 5 7021-8 ####[facility] LABCLIA [id number] [address] LABCLIA [id number] [place] [address] [place] Hematocrit (Bld) [Volume fraction] 22.1 % Low 39.0-51.0 [facility] Comment on above: Order Comment: Speci men Type: BLOOD SPECIMENOrdering Facility: [facility] Address: [address] [place] [address] Performed By: #### 5 7021-8 ####[facility] LABCLIA [id number] [address] LABCLIA [id number] [place] [address] [place] Hemoglobin (Bld) [Mass/Vol] 7.2 g/dL Low 13.0-17.0 [facility] Comment on above: Order Comment: Speci men Type: BLOOD SPECIMENOrdering Facility: [facility] Address: [address] [place] [address] Performed By: #### 5 7021-8 ####[facility] LABCLIA [id number] [address] LABCLIA [id number] [place] [address] [place] Lymphocytes (Bld) [#/Vol] 0.67 10*3/uL Low 1.00-4.00 [facility] Comment on above: Order Comment: Speci men Type: BLOOD SPECIMENOrdering Facility: [facility] Address: [address] [place], [place] [address] Performed By: #### 5 7021-8 ####[facility] LABCLIA [id number] [address] LABCLIA [id number] [place] [address] [place] Lymphocytes/100 WBC (Bld) 13.2 % Normal [facility] Comment on above: Order Comment: Speci men Type: BLOOD SPECIMENOrdering Facility: [facility] Address: [address] [place] [address] Performed By: #### 5 7021-8 ####[facility] LABCLIA [id number] [address] LABCLIA [id number] [place] [address] [place] MCH (RBC) [Entitic mass] 31.9 pg Normal 26.0-34.0 [facility] Comment on above: Order Comment: Speci men Type: BLOOD SPECIMENOrdering Facility: [facility] Address: [address] [place] [address] Performed By: #### 5 7021-8 ####[facility] LABCLIA [id number] [address] LABCLIA [id number] [place] [address] [place] MCHC (RBC) [Mass/Vol] 32.6 g/dL Normal 30.5-36.0 [facility] Comment on above: Order Comment: Speci men Type: BLOOD SPECIMENOrdering Facility: [facility] Address: [address] [place], [place] [id number] Performed By: #### 5 7021-8 ####[facility] LABCLIA [id number] [address] LABCLIA [id number] [place] [address] [place] MCV (RBC) [Entitic vol] 97.8 fL Normal 80.0-100.0 [facility] Comment on above: Order Comment: Speci men Type: BLOOD SPECIMENOrdering Facility: [facility] Address: [address] [place], [place] [id number] Performed By: #### 5 7021-8 ####[facility] LABCLIA [id number] [address] LABCLIA [id number] [place] [address] [place] Monocytes (Bld) [#/Vol] 0.00 10*3/uL Normal <0.87 [facility] Comment on above: Order Comment: Speci men Type: BLOOD SPECIMENOrdering Facility: [facility] Address: [address] [address] Performed By: #### 5 7021-8 ####[facility] LABCLIA [id number] [address] LABCLIA [id number] [place] [address] [place] Monocytes/100 WBC (Bld) 0.0 % Normal [facility] Comment on above: Order Comment: Speci men Type: BLOOD SPECIMENOrdering Facility: [facility] Address: [address] Performed By: #### 5 7021-8 ####[facility] LABCLIA [id number] [address] LABCLIA [id number] [place] [address] [place] Neutrophils (Bld) [#/Vol] 4.38 10*3/uL Normal 1.45-7.50 [facility] Comment on above: Order Comment: Speci men Type: BLOOD SPECIMENOrdering Facility: [facility] Address: [address] Performed By: #### 5 7021-8 ####[facility] LABCLIA [id number] [address] LABCLIA [id number] [place] [address] [place] Neutrophils/100 WBC (Bld) 86.0 % Normal [facility] Comment on above: Order Comment: Speci men Type: BLOOD SPECIMENOrdering Facility: [facility] Address: [address] [place] [address] Performed By: #### 5 7021-8 ####[facility] LABCLIA [id number] [address] LABCLIA [id number] [place] [address] [place] Nucleated RBC (Bld) [#/Vol] 10*3/uL Normal <0.01 [facility] Comment on above: Order Comment: Speci men Type: BLOOD SPECIMENOrdering Facility: [facility] Address: [address] [place] [address] Performed By: #### 5 7021-8 ####[facility] LABCLIA [id number] [address] LABCLIA [id number] [place] [address] [place] Nucleated RBC/100 WBC (Bld) [Ratio] 0.0 /100 WBC Normal [facility] Comment on above: Order Comment: Speci men Type: BLOOD SPECIMENOrdering Facility: [facility] Address: [address] [place] [address] Performed By: #### 5 7021-8 ####[facility] LABCLIA [id number] [address] LABCLIA [id number] [place] [address] [place] Ovalocytes LM Ql (Bld) Few Normal [facility] Comment on above: Order Comment: Speci men Type: BLOOD SPECIMENOrdering Facility: [facility] Address: [address] [place] [address] Performed By: #### 5 7021-8 ####[facility] LABCLIA [id number] [place] [id number] LABCLIA [id number] [place] [address] [place] Platelet mean volume (Bld) [Entitic vol] 9.3 fL Normal 9.0-12.7 [facility] Comment on above: Order Comment: Speci men Type: BLOOD SPECIMENOrdering Facility: [facility] Address: [address] [place] [address] Performed By: #### 5 7021-8 ####BREWSTERLORENA [facility] LABCLIA [id number] [address] LABCLIA [id number] [place] [address] [place] Platelets (Bld) [#/Vol] 190 10*3/uL Normal 150-400 [facility] Comment on above: Order Comment: Speci men Type: BLOOD SPECIMENOrdering Facility: [facility] Address: [address] [place] [address] Performed By: #### 5 7021-8 ####[facility] LABCLIA [id number] [address] LABCLIA [id number] [place] [address] [place] Platelets Estimate (Bld) [#/Vol] Adequate Normal [facility] Comment on above: Order Comment: Speci men Type: BLOOD SPECIMENOrdering Facility: [facility] Address: [address] [place] [address] Performed By: #### 5 7021-8 ####[facility] LABCLIA [id number] [address] LABCLIA [id number] [place] [address] [place] Polychromasia LM Ql (Bld) Slight Normal [facility] Comment on above: Order Comment: Speci men Type: BLOOD SPECIMENOrdering Facility: [facility] Address: [address] [place] [address] Performed By: #### 5 7021-8 ####ESEQUIEL [facility] LABCLIA [id number] [address] LABCLIA [id number] [place] [address] [place] RBC (Bld) [#/Vol] 2.26 10*6/uL Low 4.20-6.00 [facility] Comment on above: Order Comment: Speci men Type: BLOOD SPECIMENOrdering Facility: [facility] Address: [address] [place] [address] Performed By: #### 5 7021-8 ####ESEQUIEL [facility] LABCLIA [id number] [address] LABCLIA [id number] [place] [address] [place] RBC FRAGMENTS Few Abnormal None Seen [facility] Comment on above: Order Comment: Speci men Type: BLOOD SPECIMENOrdering Facility: [facility] Address: [address] [place] [address] Performed By: #### 5 7021-8 ####ESEQUIEL [facility] LABCLIA [id number] [address] LABCLIA [id number] [place] [address] [place] RED CELL MORPH Reviewed: see result s of individual morphologies Normal [facility] Comment on above: Order Comment: Speci men Type: BLOOD SPECIMENOrdering Facility: [facility] Address: [address] [place] [address] Performed By: #### 5 7021-8 ####ESEQUIEL [facility] LABCLIA [id number] [address] LABCLIA [id number] [address] [address] [place] WBC (Bld) [#/Vol] 5.09 10*3/uL Normal 3.70-11.00 [facility] Comment on above: Order Comment: Speci men Type: BLOOD SPECIMENOrdering Facility: [facility] Address: [address] [address] Performed By: #### 5 7021-8 ####[facility] LABCLIA [id number] [place], [place] [address] LABCLIA [id number] [place] [address] [place] CNOVSPon 12-05-2022 CNOVSP Normal [facility] CNPNon 12-05-2022 CNPN Normal [facility] CBC W Auto Differential pane l (Bld)on 11-30-2022 Basophils (Bld) [#/Vol] 0.03 10*3/uL <0.11 k/uL [facility] Basophils (Bld) [#/Vol] 0.03 10*3/uL Normal <0.11 [facility] Comment on above: Order Comment: Speci men Type: BLOOD SPECIMENOrdering Facility: [facility] Address: [address] [place] [address] Performed By: #### 5 7021-8 ####[facility] LABCLIA [id number] [place] [address] Basophils/100 WBC (Bld) 0.5 % [facility] Basophils/100 WBC (Bld) 0.5 % Normal [facility] Comment on above: Order Comment: Speci men Type: BLOOD SPECIMENOrdering Facility: [facility] Address: [address] [place] [address] Performed By: #### 5 7021-8 ####[facility] LABCLIA [id number] [place] [address] Differential cell count method Nom (Bld) Auto [facility] Differential cell count method Nom (Bld) Auto Normal [facility] Comment on above: Order Comment: Speci men Type: BLOOD SPECIMENOrdering Facility: [facility] Address: [address] [address] Performed By: #### 5 7021-8 ####[facility] LABCLIA [id number] [place] [address] Eosinophils (Bld) [#/Vol] <0.46 k/uL [facility] Eosinophils (Bld) [#/Vol] 10*3/uL Normal <0.46 [facility] Comment on above: Order Comment: Speci men Type: BLOOD SPECIMENOrdering Facility: [facility] Address: [address] [address] Performed By: #### 5 7021-8 ####[facility] LABIA [id number] [place] [address] Eosinophils/100 WBC (Bld) 0.3 % [facility] Eosinophils/100 WBC (Bld) 0.3 % Normal [facility] Comment on above: Order Comment: Speci men Type: BLOOD SPECIMENOrdering Facility: [facility] Address: [address] [address] Performed By: #### 5 7021-8 ####[facility] LABCLIA [id number] [place] [address] Erythrocyte distribution width (RBC) [Ratio] 14.1 % 11.5 - 15.0 % [facility] Erythrocyte distribution width (RBC) [Ratio] 14.1 % Normal 11.5-15.0 [facility] Comment on above: Order Comment: Speci men Type: BLOOD SPECIMENOrdering Facility: [facility] Address: [address] [place] [address] Performed By: #### 5 7021-8 ####[facility] LABIA [id number] [place] [address] Hematocrit (Bld) [Volume fraction] 25.2 % Low 39.0 - 51.0 % [facility] Hematocrit (Bld) [Volume fraction] 25.2 % Low 39.0-51.0 [facility] Comment on above: Order Comment: Speci men Type: BLOOD SPECIMENOrdering Facility: [facility] Address: [address] [place] [address] Performed By: #### 5 7021-8 ####[facility] LABCLIA [id number] [place] [address] Hemoglobin (Bld) [Mass/Vol] 8.2 g/dL Low 13.0 - 17.0 g/dL [facility] Hemoglobin (Bld) [Mass/Vol] 8.2 g/dL Low 13.0-17.0 [facility] Comment on above: Order Comment: Speci men Type: BLOOD SPECIMENOrdering Facility: [facility] Address: [address] [place] [address] Performed By: #### 5 7021-8 ####[facility] LABCLIA [id number] [place] [id number] Immature granulocytes (Bld) [#/Vol] 0.07 10*3/uL <0.10 k/uL [facility] Immature granulocytes (Bld) [#/Vol] 0.07 10*3/uL Normal <0.10 [facility] Comment on above: Order Comment: Speci men Type: BLOOD SPECIMENOrdering Facility: [facility] Address: [address] [place] [address] Performed By: #### 5 7021-8 ####[facility] LABCLIA [id number] [place] [id number] Immature granulocytes/100 WBC (Bld) 1.2 % [facility] Immature granulocytes/100 WBC (Bld) 1.2 % Normal [facility] Comment on above: Order Comment: Speci men Type: BLOOD SPECIMENOrdering Facility: [facility] Address: [address] [place] [address] Performed By: #### 5 7021-8 ####[facility] LABCLIA [id number] [place] [address] Lymphocytes (Bld) [#/Vol] 1.86 10*3/uL 1.00 - 4.00 k/uL [facility] Lymphocytes (Bld) [#/Vol] 1.86 10*3/uL Normal 1.00-4.00 [facility] Comment on above: Order Comment: Speci men Type: BLOOD SPECIMENOrdering Facility: [facility] Address: [address] [address] Performed By: #### 5 7021-8 ####[facility] LABCLIA [id number] [place] [address] Lymphocytes/100 WBC (Bld) 30.9 % [facility] Lymphocytes/100 WBC (Bld) 30.9 % Normal [facility] Comment on above: Order Comment: Speci men Type: BLOOD SPECIMENOrdering Facility: [facility] Address: [address] [place] [address] Performed By: #### 5 7021-8 ####[facility] LABCLIA [id number] [place] [address] MCH (RBC) [Entitic mass] 31.4 pg 26.0 - 34.0 pg [facility] MCH (RBC) [Entitic mass] 31.4 pg Normal 26.0-34.0 [facility] Comment on above: Order Comment: Speci men Type: BLOOD SPECIMENOrdering Facility: [facility] Address: [address] [place] [address] Performed By: #### 5 7021-8 ####[facility] LABCLIA [id number] [place] [address] MCHC (RBC) [Mass/Vol] 32.5 g/dL 30.5 - 36.0 g/dL [facility] MCHC (RBC) [Mass/Vol] 32.5 g/dL Normal 30.5-36.0 [facility] Comment on above: Order Comment: Speci men Type: BLOOD SPECIMENOrdering Facility: [facility] Address: [address] [place] [address] Performed By: #### 5 7021-8 ####[facility] LABCLIA [id number] [place] [address] MCV (RBC) [Entitic vol] 96.6 fL 80.0 - 100.0 fL [facility] MCV (RBC) [Entitic vol] 96.6 fL Normal 80.0-100.0 [facility] Comment on above: Order Comment: Speci men Type: BLOOD SPECIMENOrdering Facility: [facility] Address: [address] [address] Performed By: #### 5 7021-8 ####[facility] LABCLIA [id number] [place] [address] Monocytes (Bld) [#/Vol] 0.26 10*3/uL <0.87 k/uL [facility] Monocytes (Bld) [#/Vol] 0.26 10*3/uL Normal <0.87 [facility] Comment on above: Order Comment: Speci men Type: BLOOD SPECIMENOrdering Facility: [facility] Address: [address] [address] Performed By: #### 5 7021-8 ####[facility] LABCLIA [id number] [place] [address] Monocytes/100 WBC (Bld) 4.3 % [facility] Monocytes/100 WBC (Bld) 4.3 % Normal [facility] Comment on above: Order Comment: Speci men Type: BLOOD SPECIMENOrdering Facility: [facility] Address: [address] [address] Performed By: #### 5 7021-8 ####[facility] LABIA [id number] [place] [address] Neutrophils (Bld) [#/Vol] 3.78 10*3/uL 1.45 - 7.50 k/uL [facility] Neutrophils (Bld) [#/Vol] 3.78 10*3/uL Normal 1.45-7.50 [facility] Comment on above: Order Comment: Speci men Type: BLOOD SPECIMENOrdering Facility: [facility] Address: [address] [address] Performed By: #### 5 7021-8 ####ESEQUIEL [facility] LABCLIA [id number] [place] [address] Neutrophils/100 WBC (Bld) 62.8 % [facility] Neutrophils/100 WBC (Bld) 62.8 % Normal [facility] Comment on above: Order Comment: Speci men Type: BLOOD SPECIMENOrdering Facility: [facility] Address: [address] [place] [address] Performed By: #### 5 7021-8 ####ESEQUIEL [facility] LABIA [id number] [place] [address] Nucleated RBC (Bld) [#/Vol] <0.01 k/uL [facility] Nucleated RBC (Bld) [#/Vol] 10*3/uL Normal <0.01 [facility] Comment on above: Order Comment: Speci men Type: BLOOD SPECIMENOrdering Facility: [facility] Address: [address] [place] [address] Performed By: #### 5 7021-8 ####ESEQUIEL [facility] LABIA [id number] [place] [address] Nucleated RBC/100 WBC (Bld) [Ratio] 0.0 /100 WBC [facility] Nucleated RBC/100 WBC (Bld) [Ratio] 0.0 /100 WBC Normal [facility] Comment on above: Order Comment: Speci men Type: BLOOD SPECIMENOrdering Facility: [facility] Address: [address] [place] [address] Performed By: #### 5 7021-8 ####ESEQUIEL [facility] LABIA [id number] [place] [address] Platelet mean volume (Bld) [Entitic vol] 10.0 fL 9.0 - 12.7 fL [facility] Platelet mean volume (Bld) [Entitic vol] 10.0 fL Normal 9.0-12.7 [facility] Comment on above: Order Comment: Speci men Type: BLOOD SPECIMENOrdering Facility: [facility] Address: [address] [place] [address] Performed By: #### 5 7021-8 ####BREWSTERLORENA [facility] LABCLIA [id number] [place] [address] Platelets (Bld) [#/Vol] 217 10*3/uL 150 - 400 k/uL [facility] Platelets (Bld) [#/Vol] 217 10*3/uL Normal 150-400 [facility] Comment on above: Order Comment: Speci men Type: BLOOD SPECIMENOrdering Facility: [facility] Address: [address] [place] [address] Performed By: #### 5 7021-8 ####[facility] LABCLIA [id number] [place] [address] RBC (Bld) [#/Vol] 2.61 10*6/uL Low 4.20 - 6.0 0 m/uL [facility] RBC (Bld) [#/Vol] 2.61 10*6/uL Low 4.20-6.00 [facility] Comment on above: Order Comment: Speci men Type: BLOOD SPECIMENOrdering Facility: [facility] Address: [address] [place] [address] Performed By: #### 5 7021-8 ####[facility] LABCLIA [id number] [place] [address] WBC (Bld) [#/Vol] 6.02 10*3/uL 3.70 - 11.00 k/uL [facility] WBC (Bld) [#/Vol] 6.02 10*3/uL Normal 3.70-11.00 [facility] Comment on above: Order Comment: Speci men Type: BLOOD SPECIMENOrdering Facility: [facility] Address: [address] [place] [address] Performed By: #### 5 7021-8 ####[facility] LABCLIA [id number] [place] [address] CNOVSPon 11-30-2022 CNOVSP Normal [facility] Comprehensive metabolic 2000 panelon 11-30-2022 Albumin [Mass/Vol] 3.3 g/dL Low 3.9 - 4.9 g/dL [facility] Albumin [Mass/Vol] 3.3 g/dL Low 3.9-4.9 [facility] Comment on above: Order Comment: Speci men Type: BLOOD SPECIMENOrdering Facility: [facility] Address: [address] [place] [address] Performed By: #### 2 4323-8 ####[facility] LABCLIA [id number] [place] [address] ALP [Catalytic activity/Vol] 121 U/L High 38 - 113 U/L [facility] ALP [Catalytic activity/Vol] 121 U/L High 38-113 [facility] Comment on above: Order Comment: Speci men Type: BLOOD SPECIMENOrdering Facility: [facility] Address: [address] [place] [address] Performed By: #### 2 4323-8 ####[facility] LABIA [id number] [place] [address] ALT [Catalytic activity/Vol] 17 U/L 10 - 54 U/L [facility] ALT [Catalytic activity/Vol] 17 U/L Normal 10-54 [facility] Comment on above: Order Comment: Speci men Type: BLOOD SPECIMENOrdering Facility: [facility] Address: [address] [place] [address] Performed By: #### 2 4323-8 ####[facility] LABCLIA [id number] [place] [address] Anion gap [Moles/Vol] 6 mmol/L Low 9 - 18 mmol/L [facility] Anion gap [Moles/Vol] 6 mmol/L Low 9-18 [facility] Comment on above: Order Comment: Speci men Type: BLOOD SPECIMENOrdering Facility: [facility] Address: [address] [address] Performed By: #### 2 4323-8 ####[facility] LABCLIA [id number] [place] [address] AST [Catalytic activity/Vol] 24 U/L 14 - 40 U/L [facility] AST [Catalytic activity/Vol] 24 U/L Normal 14-40 [facility] Comment on above: Order Comment: Speci men Type: BLOOD SPECIMENOrdering Facility: [facility] Address: [address] [address] Performed By: #### 2 4323-8 ####[facility] LABCLIA [id number] [place] [address] Bilirubin [Mass/Vol] 1.0 mg/dL 0.2 - 1 .3 mg/dL [facility] Bilirubin [Mass/Vol] 1.0 mg/dL Normal 0.2-1.3 [facility] Comment on above: Order Comment: Speci men Type: BLOOD SPECIMENOrdering Facility: [facility] Address: [address] [address] Performed By: #### 2 4323-8 ####[facility] LABCLIA [id number] [place] [address] Calcium [Mass/Vol] 10.6 mg/dL High 8.5 - 10. 2 mg/dL [facility] Calcium [Mass/Vol] 10.6 mg/dL High 8.5-10.2 [facility] Comment on above: Order Comment: Speci men Type: BLOOD SPECIMENOrdering Facility: [facility] Address: [address] [address] Performed By: #### 2 4323-8 ####[facility] LABCLIA [id number] [place] [address] Chloride [Moles/Vol] 103 mmol/L 97 - 10 5 mmol/L [facility] Chloride [Moles/Vol] 103 mmol/L Normal 97-105 [facility] Comment on above: Order Comment: Speci men Type: BLOOD SPECIMENOrdering Facility: [facility] Address: [address] [place] [address] Performed By: #### 2 4323-8 ####[facility] LABCLIA [id number] [place] [address] CO2 [Moles/Vol] 25 mmol/L 22 - 30 mmol/L [facility] CO2 [Moles/Vol] 25 mmol/L Normal 22-30 [facility] Comment on above: Order Comment: Speci men Type: BLOOD SPECIMENOrdering Facility: [facility] Address: [address] [place] [address] Performed By: #### 2 4323-8 ####[facility] LABCLIA [id number] [place] [address] Creatinine [Mass/Vol] 0.80 mg/dL 0.73 - 1.22 mg/dL [facility] Creatinine [Mass/Vol] 0.80 mg/dL Normal 0.73-1.22 [facility] Comment on above: Order Comment: Speci men Type: BLOOD SPECIMENOrdering Facility: [facility] Address: [address] [place] [address] Performed By: #### 2 4323-8 ####[facility] LABCLIA [id number] [place] [address] Estimated Glomerular Filtration Rate 95 mL/min/1.73m >=60 mL/min/1.73 m [facility] ESTIMATED GLOMERULAR FILTRATION RATE 95 mL/min/1.73m??? Normal >=60 [facility] Comment on above: Order Comment: Speci men Type: BLOOD SPECIMENOrdering Facility: [facility] Address: [address] [place] [address] Result Comment: Kathy mated Glomerular Filtration Rate [...] actual GFR. Performed By: #### 2 4323-8 ####[facility] LABCLIA [id number] [place] [address] Glucose [Mass/Vol] 273 mg/dL High 74 - 99 mg/dL [facility] Glucose [Mass/Vol] 273 mg/dL High 74-99 [facility] Comment on above: Order Comment: Noemí hoff Type: BLOOD SPECIMENOrdering Facility: [facility] Address: [address] [place], [place] [id number] Result Comment: The [place] [employer] (ADA) provides guidance for cutoff [...] Standards of Medical Care in Diabetes 2016, [place] [employer]. Diabetes Care. 2016.39(Suppl 1). Performed By: #### 2 4323-8 ####[facility] LABCLIA [id number] [place] [address] Potassium [Moles/Vol] 4.0 mmol/L 3.7 - 5.1 mmol/L [facility] Potassium [Moles/Vol] 4.0 mmol/L Normal 3.7-5.1 [facility] Comment on above: Order Comment: Noemí hoff Type: BLOOD SPECIMENOrdering Facility: [facility] Address: [address] [place] [id number] Performed By: #### 2 4323-8 ####[facility] LABCLIA [id number] [place] [address] Protein [Mass/Vol] 6.8 g/dL 6.3 - 8.0 g/dL [facility] Protein [Mass/Vol] 6.8 g/dL Normal 6.3-8.0 [facility] Comment on above: Order Comment: Speci men Type: BLOOD SPECIMENOrdering Facility: [facility] Address: [address] [place] [address] Performed By: #### 2 4323-8 ####[facility] LABCLIA [id number] [place] [address] Sodium [Moles/Vol] 134 mmol/L Low 136 - 144 mmol/L [facility] Sodium [Moles/Vol] 134 mmol/L Low 136-144 [facility] Comment on above: Order Comment: Speci men Type: BLOOD SPECIMENOrdering Facility: [facility] Address: [address] [place] [address] Performed By: #### 2 4323-8 ####[facility] LABCLIA [id number] [place] [id number] Urea nitrogen [Mass/Vol] 15 mg/dL 9 - 24 mg/dL [facility] Urea nitrogen [Mass/Vol] 15 mg/dL Normal 9-24 [facility] Comment on above: Order Comment: Speci men Type: BLOOD SPECIMENOrdering Facility: [facility] Address: [address] [place] [address] Performed By: #### 2 4323-8 ####[facility] LABCLIA [id number] [place] [address] CBC W Auto Differential pane l (Bld)on 11-23-2022 Basophils (Bld) [#/Vol] 0.03 10*3/uL <0.11 k/uL [facility] Basophils (Bld) [#/Vol] 0.03 10*3/uL Normal <0.11 [facility] Comment on above: Order Comment: Speci men Type: BLOOD SPECIMENOrdering Facility: [facility] Address: [address] [place] [address] Performed By: #### 5 7021-8 ####[facility] LABCLIA [id number] [place] [address] Basophils/100 WBC (Bld) 0.3 % [facility] Basophils/100 WBC (Bld) 0.3 % Normal [facility] Comment on above: Order Comment: Speci men Type: BLOOD SPECIMENOrdering Facility: [facility] Address: [address] [place] [address] Performed By: #### 5 7021-8 ####[facility] LABCLIA [id number] [place] [address] Differential cell count method Nom (Bld) Auto [facility] Differential cell count method Nom (Bld) Auto Normal [facility] Comment on above: Order Comment: Speci men Type: BLOOD SPECIMENOrdering Facility: [facility] Address: [address] [place] [address] Performed By: #### 5 7021-8 ####[facility] LABCLIA [id number] [place] [address] Eosinophils (Bld) [#/Vol] 0.05 10*3/uL <0.46 k/uL [facility] Eosinophils (Bld) [#/Vol] 0.05 10*3/uL Normal <0.46 [facility] Comment on above: Order Comment: Speci men Type: BLOOD SPECIMENOrdering Facility: [facility] Address: [address] [place] [address] Performed By: #### 5 7021-8 ####[facility] LABCLIA [id number] [place] [address] Eosinophils/100 WBC (Bld) 0.5 % [facility] Eosinophils/100 WBC (Bld) 0.5 % Normal [facility] Comment on above: Order Comment: Speci men Type: BLOOD SPECIMENOrdering Facility: [facility] Address: [address] [place] [address] Performed By: #### 5 7021-8 ####[facility] LABCLIA [id number] [place] [address] Erythrocyte distribution width (RBC) [Ratio] 13.9 % 11.5 - 15.0 % [facility] Erythrocyte distribution width (RBC) [Ratio] 13.9 % Normal 11.5-15.0 [facility] Comment on above: Order Comment: Speci men Type: BLOOD SPECIMENOrdering Facility: [facility] Address: [address] [place] [address] Performed By: #### 5 7021-8 ####[facility] LABCLIA [id number] [place] [address] Hematocrit (Bld) [Volume fraction] 32.6 % Low 39.0 - 51.0 % [facility] Hematocrit (Bld) [Volume fraction] 32.6 % Low 39.0-51.0 [facility] Comment on above: Order Comment: Speci men Type: BLOOD SPECIMENOrdering Facility: [facility] Address: [address] [place] [address] Performed By: #### 5 7021-8 ####[facility] LABIA [id number] [place] [address] Hemoglobin (Bld) [Mass/Vol] 10.7 g/dL Low 13.0 - 17.0 g/dL [facility] Hemoglobin (Bld) [Mass/Vol] 10.7 g/dL Low 13.0-17.0 [facility] Comment on above: Order Comment: Speci men Type: BLOOD SPECIMENOrdering Facility: [facility] Address: [address] [place] [address] Performed By: #### 5 7021-8 ####[facility] LABIA [id number] [place] [address] Immature granulocytes (Bld) [#/Vol] 0.04 10*3/uL <0.10 k/uL [facility] Immature granulocytes (Bld) [#/Vol] 0.04 10*3/uL Normal <0.10 [facility] Comment on above: Order Comment: Speci men Type: BLOOD SPECIMENOrdering Facility: [facility] Address: [address] [place] [address] Performed By: #### 5 7021-8 ####[facility] LABCLIA [id number] [place] [address] Immature granulocytes/100 WBC (Bld) 0.4 % [facility] Immature granulocytes/100 WBC (Bld) 0.4 % Normal [facility] Comment on above: Order Comment: Speci men Type: BLOOD SPECIMENOrdering Facility: [facility] Address: [address] [place] [address] Performed By: #### 5 7021-8 ####[facility] LABIA [id number] [place] [address] Lymphocytes (Bld) [#/Vol] 1.57 10*3/uL 1.00 - 4.00 k/uL [facility] Lymphocytes (Bld) [#/Vol] 1.57 10*3/uL Normal 1.00-4.00 [facility] Comment on above: Order Comment: Speci men Type: BLOOD SPECIMENOrdering Facility: [facility] Address: [address] [place] [address] Performed By: #### 5 7021-8 ####[facility] LABCLIA [id number] [place] [address] Lymphocytes/100 WBC (Bld) 14.5 % [facility] Lymphocytes/100 WBC (Bld) 14.5 % Normal [facility] Comment on above: Order Comment: Speci men Type: BLOOD SPECIMENOrdering Facility: [facility] Address: [address] [place] [address] Performed By: #### 5 7021-8 ####[facility] LABIA [id number] [place] [address] MCH (RBC) [Entitic mass] 31.7 pg 26.0 - 34.0 pg [facility] MCH (RBC) [Entitic mass] 31.7 pg Normal 26.0-34.0 [facility] Comment on above: Order Comment: Speci men Type: BLOOD SPECIMENOrdering Facility: [facility] Address: [address] [place] [address] Performed By: #### 5 7021-8 ####[facility] LABCLIA [id number] [place] [address] MCHC (RBC) [Mass/Vol] 32.8 g/dL 30.5 - 36.0 g/dL [facility] MCHC (RBC) [Mass/Vol] 32.8 g/dL Normal 30.5-36.0 [facility] Comment on above: Order Comment: Speci men Type: BLOOD SPECIMENOrdering Facility: [facility] Address: [address] [place] [address] Performed By: #### 5 7021-8 ####[facility] LABCLIA [id number] [place] [id number] MCV (RBC) [Entitic vol] 96.4 fL 80.0 - 100.0 fL [facility] MCV (RBC) [Entitic vol] 96.4 fL Normal 80.0-100.0 [facility] Comment on above: Order Comment: Speci men Type: BLOOD SPECIMENOrdering Facility: [facility] Address: [address] [place] [address] Performed By: #### 5 7021-8 ####[facility] LABCLIA [id number] [place] [address] Monocytes (Bld) [#/Vol] 0.77 10*3/uL <0.87 k/uL [facility] Monocytes (Bld) [#/Vol] 0.77 10*3/uL Normal <0.87 [facility] Comment on above: Order Comment: Speci men Type: BLOOD SPECIMENOrdering Facility: [facility] Address: [address] [place] [address] Performed By: #### 5 7021-8 ####[facility] LABCLIA [id number] [place] [address] Monocytes/100 WBC (Bld) 7.1 % [facility] Monocytes/100 WBC (Bld) 7.1 % Normal [facility] Comment on above: Order Comment: Speci men Type: BLOOD SPECIMENOrdering Facility: [facility] Address: [address] [place] [address] Performed By: #### 5 7021-8 ####[facility] LABCLIA [id number] [place] [address] Neutrophils (Bld) [#/Vol] 8.35 10*3/uL High 1.45 - 7.50 k/uL [facility] Neutrophils (Bld) [#/Vol] 8.35 10*3/uL High 1.45-7.50 [facility] Comment on above: Order Comment: Speci men Type: BLOOD SPECIMENOrdering Facility: [facility] Address: [address] [place] [address] Performed By: #### 5 7021-8 ####[facility] LABCLIA [id number] [place] [address] Neutrophils/100 WBC (Bld) 77.2 % [facility] Neutrophils/100 WBC (Bld) 77.2 % Normal [facility] Comment on above: Order Comment: Speci men Type: BLOOD SPECIMENOrdering Facility: [facility] Address: [address] [place] [address] Performed By: #### 5 7021-8 ####[facility] LABCLIA [id number] [place] [address] Nucleated RBC (Bld) [#/Vol] <0.01 k/uL [facility] Nucleated RBC (Bld) [#/Vol] 10*3/uL Normal <0.01 [facility] Comment on above: Order Comment: Speci men Type: BLOOD SPECIMENOrdering Facility: [facility] Address: [address] [place] [address] Performed By: #### 5 7021-8 ####[facility] LABCLIA [id number] [place] [address] Nucleated RBC/100 WBC (Bld) [Ratio] 0.0 /100 WBC [facility] Nucleated RBC/100 WBC (Bld) [Ratio] 0.0 /100 WBC Normal [facility] Comment on above: Order Comment: Speci men Type: BLOOD SPECIMENOrdering Facility: [facility] Address: [address] [place] [address] Performed By: #### 5 7021-8 ####[facility] LABCLIA [id number] [place] [address] Platelet mean volume (Bld) [Entitic vol] 10.9 fL 9.0 - 12.7 fL [facility] Platelet mean volume (Bld) [Entitic vol] 10.9 fL Normal 9.0-12.7 [facility] Comment on above: Order Comment: Speci men Type: BLOOD SPECIMENOrdering Facility: [facility] Address: [address] [place] [address] Performed By: #### 5 7021-8 ####[facility] LABIA [id number] [place] [address] Platelets (Bld) [#/Vol] 269 10*3/uL 150 - 400 k/uL [facility] Platelets (Bld) [#/Vol] 269 10*3/uL Normal 150-400 [facility] Comment on above: Order Comment: Speci men Type: BLOOD SPECIMENOrdering Facility: [facility] Address: [address] [place] [address] Performed By: #### 5 7021-8 ####[facility] LABIA [id number] [place] [address] RBC (Bld) [#/Vol] 3.38 10*6/uL Low 4.20 - 6.0 0 m/uL [facility] RBC (Bld) [#/Vol] 3.38 10*6/uL Low 4.20-6.00 [facility] Comment on above: Order Comment: Speci men Type: BLOOD SPECIMENOrdering Facility: [facility] Address: [address] [address] Performed By: #### 5 7021-8 ####[facility] LABCLIA [id number] [place] [address] WBC (Bld) [#/Vol] 10.81 10*3/uL 3.70 - 11.00 k/uL [facility] WBC (Bld) [#/Vol] 10.81 10*3/uL Normal 3.70-11.00 [facility] Comment on above: Order Comment: Speci men Type: BLOOD SPECIMENOrdering Facility: [facility] Address: [address] [address] Performed By: #### 5 7021-8 ####[facility] LABCLIA [id number] [place] [address] CNOVSPon 11-23-2022 CNOVSP Normal [facility] CNPNon 11-23-2022 CNPN Normal [facility] Comprehensive metabolic 2000 panelon 11-23-2022 Albumin [Mass/Vol] 3.5 g/dL Low 3.9 - 4.9 g/dL [facility] Albumin [Mass/Vol] 3.5 g/dL Low 3.9-4.9 [facility] Comment on above: Order Comment: Speci men Type: BLOOD SPECIMENOrdering Facility: [facility] Address: [address] [address] Performed By: #### 2 4323-8 ####[facility] LABCLIA [id number] [place] [address] ALP [Catalytic activity/Vol] 136 U/L High 38 - 113 U/L [facility] ALP [Catalytic activity/Vol] 136 U/L High 38-113 [facility] Comment on above: Order Comment: Speci men Type: BLOOD SPECIMENOrdering Facility: [facility] Address: [address] [place] [address] Performed By: #### 2 4323-8 ####[facility] LABCLIA [id number] [place] [address] ALT [Catalytic activity/Vol] 13 U/L 10 - 54 U/L [facility] ALT [Catalytic activity/Vol] 13 U/L Normal 10-54 [facility] Comment on above: Order Comment: Speci men Type: BLOOD SPECIMENOrdering Facility: [facility] Address: [address] [place] [address] Performed By: #### 2 4323-8 ####[facility] LABCLIA [id number] [place] [address] Anion gap [Moles/Vol] 9 mmol/L 9 - 18 mmol/L [facility] Anion gap [Moles/Vol] 9 mmol/L Normal 9-18 [facility] Comment on above: Order Comment: Speci men Type: BLOOD SPECIMENOrdering Facility: [facility] Address: [address] [place] [address] Performed By: #### 2 4323-8 ####[facility] LABCLIA [id number] [place] [address] AST [Catalytic activity/Vol] 13 U/L Low 14 - 40 U/L [facility] AST [Catalytic activity/Vol] 13 U/L Low 14-40 [facility] Comment on above: Order Comment: Speci men Type: BLOOD SPECIMENOrdering Facility: [facility] Address: [address] [place] [address] Performed By: #### 2 4323-8 ####[facility] LABCLIA [id number] [place] [address] Bilirubin [Mass/Vol] 1.0 mg/dL 0.2 - 1 .3 mg/dL [facility] Bilirubin [Mass/Vol] 1.0 mg/dL Normal 0.2-1.3 [facility] Comment on above: Order Comment: Speci men Type: BLOOD SPECIMENOrdering Facility: [facility] Address: [address] [place] [address] Performed By: #### 2 4323-8 ####[facility] LABCLIA [id number] [place] [address] Calcium [Mass/Vol] 10.4 mg/dL High 8.5 - 10. 2 mg/dL [facility] Calcium [Mass/Vol] 10.4 mg/dL High 8.5-10.2 [facility] Comment on above: Order Comment: Speci men Type: BLOOD SPECIMENOrdering Facility: [facility] Address: [address] [place] [address] Performed By: #### 2 4323-8 ####[facility] LABIA [id number] [place] [address] Chloride [Moles/Vol] 101 mmol/L 97 - 10 5 mmol/L [facility] Chloride [Moles/Vol] 101 mmol/L Normal 97-105 [facility] Comment on above: Order Comment: Speci men Type: BLOOD SPECIMENOrdering Facility: [facility] Address: [address] [place] [address] Performed By: #### 2 4323-8 ####[facility] LABIA [id number] [place] [address] CO2 [Moles/Vol] 23 mmol/L 22 - 30 mmol/L [facility] CO2 [Moles/Vol] 23 mmol/L Normal 22-30 [facility] Comment on above: Order Comment: Speci men Type: BLOOD SPECIMENOrdering Facility: [facility] Address: [address] [place] [address] Performed By: #### 2 4323-8 ####[facility] LABIA [id number] [place] [address] Creatinine [Mass/Vol] 0.80 mg/dL 0.73 - 1.22 mg/dL [facility] Creatinine [Mass/Vol] 0.80 mg/dL Normal 0.73-1.22 [facility] Comment on above: Order Comment: Speci men Type: BLOOD SPECIMENOrdering Facility: [facility] Address: [address] [place] [address] Performed By: #### 2 4323-8 ####[facility] LABCLIA [id number] [place] [address] Estimated Glomerular Filtration Rate 95 mL/min/1.73m >=60 mL/min/1.73 m [facility] ESTIMATED GLOMERULAR FILTRATION RATE 95 mL/min/1.73m??? Normal >=60 [facility] Comment on above: Order Comment: Noemí hoff Type: BLOOD SPECIMENOrdering Facility: [facility] Address: [address] [phone] Result Comment: Kathy mated Glomerular Filtration Rate [...] actual GFR. Performed By: #### 2 4323-8 ####[facility] LABCLIA [id number] [place] [address] Glucose [Mass/Vol] 251 mg/dL High 74 - 99 mg/dL [facility] Glucose [Mass/Vol] 251 mg/dL High 74-99 [facility] Comment on above: Order Comment: Noemí hoff Type: BLOOD SPECIMENOrdering Facility: [facility] Address: [address] [place] [phone] Result Comment: The [place] [employer] (ADA) provides guidance for cutoff [...] Standards of Medical Care in Diabetes 2016, [place] [employer]. Diabetes Care. 2016.39(Suppl 1). Performed By: #### 2 4323-8 ####[facility] LABCLIA [id number] [place] [address] Potassium [Moles/Vol] 4.1 mmol/L 3.7 - 5.1 mmol/L [facility] Potassium [Moles/Vol] 4.1 mmol/L Normal 3.7-5.1 [facility] Comment on above: Order Comment: Speci men Type: BLOOD SPECIMENOrdering Facility: [facility] Address: [address] [address] Performed By: #### 2 4323-8 ####[facility] LABCLIA [id number] [place] [address] Protein [Mass/Vol] 7.1 g/dL 6.3 - 8.0 g/dL [facility] Protein [Mass/Vol] 7.1 g/dL Normal 6.3-8.0 [facility] Comment on above: Order Comment: Speci men Type: BLOOD SPECIMENOrdering Facility: [facility] Address: [address] [address] Performed By: #### 2 4323-8 ####[facility] LABIA [id number] [place] [address] Sodium [Moles/Vol] 133 mmol/L Low 136 - 144 mmol/L [facility] Sodium [Moles/Vol] 133 mmol/L Low 136-144 [facility] Comment on above: Order Comment: Speci men Type: BLOOD SPECIMENOrdering Facility: [facility] Address: [address] [address] Performed By: #### 2 4323-8 ####[facility] LABIA [id number] [place] [address] Urea nitrogen [Mass/Vol] 15 mg/dL 9 - 24 mg/dL [facility] Urea nitrogen [Mass/Vol] 15 mg/dL Normal 9-24 [facility] Comment on above: Order Comment: Speci men Type: BLOOD SPECIMENOrdering Facility: [facility] Address: [address] [place] [address] Performed By: #### 2 4323-8 ####[facility] LABCLIA [id number] [place] [address] CNPNon 11-16-2022 CNPN Normal [facility] CBC W Auto Differential pane l (Bld)on 11-10-2022 Basophils (Bld) [#/Vol] 0.03 10*3/uL <0.11 k/uL [facility] Basophils (Bld) [#/Vol] 0.03 10*3/uL Normal <0.11 [facility] Comment on above: Order Comment: Speci men Type: BLOOD SPECIMENOrdering Facility: [facility] Address: [address] [place] [address] Performed By: #### 5 7021-8 ####[facility] LABCLIA [id number] [place] [id number] Basophils/100 WBC (Bld) 0.4 % [facility] Basophils/100 WBC (Bld) 0.4 % Normal [facility] Comment on above: Order Comment: Speci men Type: BLOOD SPECIMENOrdering Facility: [facility] Address: [address] [place] [address] Performed By: #### 5 7021-8 ####[facility] LABCLIA [id number] [place] [id number] Differential cell count method Nom (Bld) Auto [facility] Differential cell count method Nom (Bld) Auto Normal [facility] Comment on above: Order Comment: Speci men Type: BLOOD SPECIMENOrdering Facility: [facility] Address: [address] [place] [address] Performed By: #### 5 7021-8 ####[facility] LABCLIA [id number] [place] [address] Eosinophils (Bld) [#/Vol] 0.04 10*3/uL <0.46 k/uL [facility] Eosinophils (Bld) [#/Vol] 0.04 10*3/uL Normal <0.46 [facility] Comment on above: Order Comment: Speci men Type: BLOOD SPECIMENOrdering Facility: [facility] Address: [address] [place] [address] Performed By: #### 5 7021-8 ####[facility] LABCLIA [id number] [place] [address] Eosinophils/100 WBC (Bld) 0.5 % [facility] Eosinophils/100 WBC (Bld) 0.5 % Normal [facility] Comment on above: Order Comment: Speci men Type: BLOOD SPECIMENOrdering Facility: [facility] Address: [address] [place] [address] Performed By: #### 5 7021-8 ####[facility] LABIA [id number] [place] [id number] Erythrocyte distribution width (RBC) [Ratio] 14.2 % 11.5 - 15.0 % [facility] Erythrocyte distribution width (RBC) [Ratio] 14.2 % Normal 11.5-15.0 [facility] Comment on above: Order Comment: Speci men Type: BLOOD SPECIMENOrdering Facility: [facility] Address: [address] [place] [address] Performed By: #### 5 7021-8 ####[facility] LABIA [id number] [place] [address] Hematocrit (Bld) [Volume fraction] 37.4 % Low 39.0 - 51.0 % [facility] Hematocrit (Bld) [Volume fraction] 37.4 % Low 39.0-51.0 [facility] Comment on above: Order Comment: Speci men Type: BLOOD SPECIMENOrdering Facility: [facility] Address: [address] [place] [address] Performed By: #### 5 7021-8 ####[facility] LABCLIA [id number] [place] [address] Hemoglobin (Bld) [Mass/Vol] 12.2 g/dL Low 13.0 - 17.0 g/dL [facility] Hemoglobin (Bld) [Mass/Vol] 12.2 g/dL Low 13.0-17.0 [facility] Comment on above: Order Comment: Speci men Type: BLOOD SPECIMENOrdering Facility: [facility] Address: [address] [place] [address] Performed By: #### 5 7021-8 ####[facility] LABCLIA [id number] [place] [address] Immature granulocytes (Bld) [#/Vol] 0.04 10*3/uL <0.10 k/uL [facility] Immature granulocytes (Bld) [#/Vol] 0.04 10*3/uL Normal <0.10 [facility] Comment on above: Order Comment: Speci men Type: BLOOD SPECIMENOrdering Facility: [facility] Address: [address] [place] [address] Performed By: #### 5 7021-8 ####[facility] LABCLIA [id number] [place] [address] Immature granulocytes/100 WBC (Bld) 0.5 % [facility] Immature granulocytes/100 WBC (Bld) 0.5 % Normal [facility] Comment on above: Order Comment: Speci men Type: BLOOD SPECIMENOrdering Facility: [facility] Address: [address] [place] [address] Performed By: #### 5 7021-8 ####[facility] LABCLIA [id number] [place] [address] Lymphocytes (Bld) [#/Vol] 1.39 10*3/uL 1.00 - 4.00 k/uL [facility] Lymphocytes (Bld) [#/Vol] 1.39 10*3/uL Normal 1.00-4.00 [facility] Comment on above: Order Comment: Speci men Type: BLOOD SPECIMENOrdering Facility: [facility] Address: [address] [address] Performed By: #### 5 7021-8 ####[facility] LABIA [id number] [place] [address] Lymphocytes/100 WBC (Bld) 17.4 % [facility] Lymphocytes/100 WBC (Bld) 17.4 % Normal [facility] Comment on above: Order Comment: Speci men Type: BLOOD SPECIMENOrdering Facility: [facility] Address: [address] [address] Performed By: #### 5 7021-8 ####[facility] LABIA [id number] [place] [address] MCH (RBC) [Entitic mass] 31.6 pg 26.0 - 34.0 pg [facility] MCH (RBC) [Entitic mass] 31.6 pg Normal 26.0-34.0 [facility] Comment on above: Order Comment: Speci men Type: BLOOD SPECIMENOrdering Facility: [facility] Address: [address] [place] [address] Performed By: #### 5 7021-8 ####[facility] LABIA [id number] [place] [address] MCHC (RBC) [Mass/Vol] 32.6 g/dL 30.5 - 36.0 g/dL [facility] MCHC (RBC) [Mass/Vol] 32.6 g/dL Normal 30.5-36.0 [facility] Comment on above: Order Comment: Speci men Type: BLOOD SPECIMENOrdering Facility: [facility] Address: [address] [place] [address] Performed By: #### 5 7021-8 ####[facility] LABIA [id number] [place] [address] MCV (RBC) [Entitic vol] 96.9 fL 80.0 - 100.0 fL [facility] MCV (RBC) [Entitic vol] 96.9 fL Normal 80.0-100.0 [facility] Comment on above: Order Comment: Speci men Type: BLOOD SPECIMENOrdering Facility: [facility] Address: [address] [place] [address] Performed By: #### 5 7021-8 ####[facility] LABCLIA [id number] [place] [address] Monocytes (Bld) [#/Vol] 0.53 10*3/uL <0.87 k/uL [facility] Monocytes (Bld) [#/Vol] 0.53 10*3/uL Normal <0.87 [facility] Comment on above: Order Comment: Speci men Type: BLOOD SPECIMENOrdering Facility: [facility] Address: [address] [place] [address] Performed By: #### 5 7021-8 ####[facility] LABCLIA [id number] [place] [address] Monocytes/100 WBC (Bld) 6.6 % [facility] Monocytes/100 WBC (Bld) 6.6 % Normal [facility] Comment on above: Order Comment: Speci men Type: BLOOD SPECIMENOrdering Facility: [facility] Address: [address] [place] [address] Performed By: #### 5 7021-8 ####[facility] LABCLIA [id number] [place] [address] Neutrophils (Bld) [#/Vol] 5.97 10*3/uL 1.45 - 7.50 k/uL [facility] Neutrophils (Bld) [#/Vol] 5.97 10*3/uL Normal 1.45-7.50 [facility] Comment on above: Order Comment: Speci men Type: BLOOD SPECIMENOrdering Facility: [facility] Address: [address] [place] [address] Performed By: #### 5 7021-8 ####[facility] LABCLIA [id number] [place] [address] Neutrophils/100 WBC (Bld) 74.6 % [facility] Neutrophils/100 WBC (Bld) 74.6 % Normal [facility] Comment on above: Order Comment: Speci men Type: BLOOD SPECIMENOrdering Facility: [facility] Address: [address] [place] [address] Performed By: #### 5 7021-8 ####[facility] LABIA [id number] [place] [address] Nucleated RBC (Bld) [#/Vol] <0.01 k/uL [facility] Nucleated RBC (Bld) [#/Vol] 10*3/uL Normal <0.01 [facility] Comment on above: Order Comment: Speci men Type: BLOOD SPECIMENOrdering Facility: [facility] Address: [address] [place] [address] Performed By: #### 5 7021-8 ####[facility] [id number] [place] [address] Nucleated RBC/100 WBC (Bld) [Ratio] 0.0 /100 WBC [facility] Nucleated RBC/100 WBC (Bld) [Ratio] 0.0 /100 WBC Normal [facility] Comment on above: Order Comment: Speci men Type: BLOOD SPECIMENOrdering Facility: [facility] Address: [address] [place] [address] Performed By: #### 5 7021-8 ####[facility] LABIA [id number] [place] [address] Platelet mean volume (Bld) [Entitic vol] 11.3 fL 9.0 - 12.7 fL [facility] Platelet mean volume (Bld) [Entitic vol] 11.3 fL Normal 9.0-12.7 [facility] Comment on above: Order Comment: Speci men Type: BLOOD SPECIMENOrdering Facility: [facility] Address: [address] [place] [address] Performed By: #### 5 7021-8 ####[facility] LABIA [id number] [place] [address] Platelets (Bld) [#/Vol] 254 10*3/uL 150 - 400 k/uL [facility] Platelets (Bld) [#/Vol] 254 10*3/uL Normal 150-400 [facility] Comment on above: Order Comment: Speci men Type: BLOOD SPECIMENOrdering Facility: [facility] Address: [address] [place] [address] Performed By: #### 5 7021-8 ####[facility] LABCLIA [id number] [place] [address] RBC (Bld) [#/Vol] 3.86 10*6/uL Low 4.20 - 6.0 0 m/uL [facility] RBC (Bld) [#/Vol] 3.86 10*6/uL Low 4.20-6.00 [facility] Comment on above: Order Comment: Speci men Type: BLOOD SPECIMENOrdering Facility: [facility] Address: [address] [place] [address] Performed By: #### 5 7021-8 ####[facility] LABCLIA [id number] [place] [address] WBC (Bld) [#/Vol] 8.00 10*3/uL 3.70 - 11.00 k/uL [facility] WBC (Bld) [#/Vol] 8.00 10*3/uL Normal 3.70-11.00 [facility] Comment on above: Order Comment: Speci men Type: BLOOD SPECIMENOrdering Facility: [facility] Address: [address] [place] [address] Performed By: #### 5 7021-8 ####[facility] LABIA [id number] [place] [address] CNOVSPon 11-10-2022 CNOVSP Normal [facility] CNPNon 11-10-2022 CNPN Normal [facility] Cancer Ag19-9 SerPl-aCncon 0 11-10-2022 Cancer Ag 19-9 Qn 1706.0 [arb'U]/mL High <36.0 [facility] Comment on above: Order Comment: Noemí hoff Type: BLOOD SPECIMENOrdering Facility: [facility] Address: [address] [address] Result Comment: [facility] er antigen 19-9 test is used as an aid in monitoring response to treatment or recurrence in patients with established pancreatic, hepatobiliary, or gastrointestinal malignancies. Clinical correlation is required.The CA 19-9 Antigen test was performed using the [employer] Un[employer] DXI paramagnetic particle chemiluminescent immunoassay method. Results obtained with different assay methods or kits cannot be used interchangeably. Performed By: #### 2 4108-3 ####[facility] LABCLIA [id number] [address] [facility] [place] Comprehensive metabolic 2000 panelon 11-10-2022 Albumin [Mass/Vol] 4.0 g/dL 3.9 - 4.9 g/dL [facility] Albumin [Mass/Vol] 4.0 g/dL Normal 3.9-4.9 [facility] Comment on above: Order Comment: Noemí hoff Type: BLOOD SPECIMENOrdering Facility: [facility] Address: [address] [address] Performed By: #### 2 4323-8 ####[facility] LABCLIA [id number] [place] [address] ALP [Catalytic activity/Vol] 180 U/L High 38 - 113 U/L [facility] ALP [Catalytic activity/Vol] 180 U/L High 38-113 [facility] Comment on above: Order Comment: Noemí hoff Type: BLOOD SPECIMENOrdering Facility: [facility] Address: [address] [address] Performed By: #### 2 4323-8 ####[facility] LABCLIA [id number] [place] [address] ALT [Catalytic activity/Vol] 26 U/L 10 - 54 U/L [facility] ALT [Catalytic activity/Vol] 26 U/L Normal 10-54 [facility] Comment on above: Order Comment: Speci men Type: BLOOD SPECIMENOrdering Facility: [facility] Address: [address] [address] Performed By: #### 2 4323-8 ####[facility] LABCLIA [id number] [place] [address] Anion gap [Moles/Vol] 9 mmol/L 9 - 18 mmol/L [facility] Anion gap [Moles/Vol] 9 mmol/L Normal 9-18 [facility] Comment on above: Order Comment: Speci men Type: BLOOD SPECIMENOrdering Facility: [facility] Address: [address] [address] Performed By: #### 2 4323-8 ####[facility] LABCLIA [id number] [place] [address] AST [Catalytic activity/Vol] 21 U/L 14 - 40 U/L [facility] AST [Catalytic activity/Vol] 21 U/L Normal 14-40 [facility] Comment on above: Order Comment: Speci men Type: BLOOD SPECIMENOrdering Facility: [facility] Address: [address] [address] Performed By: #### 2 4323-8 ####[facility] LABCLIA [id number] [place] [address] Bilirubin [Mass/Vol] 0.9 mg/dL 0.2 - 1 .3 mg/dL [facility] Bilirubin [Mass/Vol] 0.9 mg/dL Normal 0.2-1.3 [facility] Comment on above: Order Comment: Speci men Type: BLOOD SPECIMENOrdering Facility: [facility] Address: [address] [address] Performed By: #### 2 4323-8 ####[facility] LABCLIA [id number] [place] [address] Calcium [Mass/Vol] 11.0 mg/dL High 8.5 - 10. 2 mg/dL [facility] Calcium [Mass/Vol] 11.0 mg/dL High 8.5-10.2 [facility] Comment on above: Order Comment: Speci men Type: BLOOD SPECIMENOrdering Facility: [facility] Address: [address] [place] [address] Performed By: #### 2 4323-8 ####[facility] LABCLIA [id number] [place] [address] Chloride [Moles/Vol] 100 mmol/L 97 - 10 5 mmol/L [facility] Chloride [Moles/Vol] 100 mmol/L Normal 97-105 [facility] Comment on above: Order Comment: Speci men Type: BLOOD SPECIMENOrdering Facility: [facility] Address: [address] [place] [address] Performed By: #### 2 4323-8 ####[facility] LABCLIA [id number] [place] [address] CO2 [Moles/Vol] 23 mmol/L 22 - 30 mmol/L [facility] CO2 [Moles/Vol] 23 mmol/L Normal 22-30 [facility] Comment on above: Order Comment: Speci men Type: BLOOD SPECIMENOrdering Facility: [facility] Address: [address] [place] [address] Performed By: #### 2 4323-8 ####[facility] LABCLIA [id number] [place] [address] Creatinine [Mass/Vol] 0.77 mg/dL 0.73 - 1.22 mg/dL [facility] Creatinine [Mass/Vol] 0.77 mg/dL Normal 0.73-1.22 [facility] Comment on above: Order Comment: Speci men Type: BLOOD SPECIMENOrdering Facility: [facility] Address: [address] [place] [address] Performed By: #### 2 4323-8 ####[facility] LABCLIA [id number] [place] [address] Estimated Glomerular Filtration Rate 96 mL/min/1.73m >=60 mL/min/1.73 m [facility] ESTIMATED GLOMERULAR FILTRATION RATE 96 mL/min/1.73m??? Normal >=60 [facility] Comment on above: Order Comment: Noemí hoff Type: BLOOD SPECIMENOrdering Facility: [facility] Address: [address] [place], [place] [id number] Result Comment: Kathy mated Glomerular Filtration Rate [...] actual GFR. Performed By: #### 2 4323-8 ####[facility] LABCLIA [id number] [place] [address] Glucose [Mass/Vol] 782 mg/dL High 74 - 99 mg/dL [facility] Glucose [Mass/Vol] 782 mg/dL High 74-99 [facility] Comment on above: Order Comment: Noemí hoff Type: BLOOD SPECIMENOrdering Facility: [facility] Address: [address] [place], [place] [id number] Result Comment: The [place] [employer] (ADA) provides guidance for cutoff [...] Standards of Medical Care in Diabetes 2016, [place] [employer]. Diabetes Care. 2016.39(Suppl 1). Performed By: #### 2 4323-8 ####[facility] LABCLIA [id number] [place] [address] Potassium [Moles/Vol] 4.7 mmol/L 3.7 - 5.1 mmol/L [facility] Potassium [Moles/Vol] 4.7 mmol/L Normal 3.7-5.1 [facility] Comment on above: Order Comment: Speci men Type: BLOOD SPECIMENOrdering Facility: [facility] Address: [address] [place] [address] Performed By: #### 2 4323-8 ####[facility] LABCLIA [id number] [place] [address] Protein [Mass/Vol] 7.4 g/dL 6.3 - 8.0 g/dL [facility] Protein [Mass/Vol] 7.4 g/dL Normal 6.3-8.0 [facility] Comment on above: Order Comment: Speci men Type: BLOOD SPECIMENOrdering Facility: [facility] Address: [address] [place] [address] Performed By: #### 2 4323-8 ####[facility] LABCLIA [id number] [place] [address] Sodium [Moles/Vol] 132 mmol/L Low 136 - 144 mmol/L [facility] Sodium [Moles/Vol] 132 mmol/L Low 136-144 [facility] Comment on above: Order Comment: Speci men Type: BLOOD SPECIMENOrdering Facility: [facility] Address: [address] [place] [address] Performed By: #### 2 4323-8 ####[facility] LABCLIA [id number] [place] [address] Urea nitrogen [Mass/Vol] 16 mg/dL 9 - 24 mg/dL [facility] Urea nitrogen [Mass/Vol] 16 mg/dL Normal 9-24 [facility] Comment on above: Order Comment: Speci men Type: BLOOD SPECIMENOrdering Facility: [facility] Address: [address] [place] [address] Performed By: #### 2 4323-8 ####[facility] LABCLIA [id number] [place] [address] CNPNon 11-07-2022 CNPN Normal [facility] CT ABD/PEL W IVCONon 023 CT ABD/PEL W IVCON Normal [facility] CT CHEST W IVCONon 3 CT CHEST W IVCON Normal [facility] CBC W Auto Differential pane l (Bld)on 09-29-2022 Basophils (Bld) [#/Vol] <0.11 k/uL [facility] Basophils/100 WBC (Bld) 0.2 % [facility] Differential cell count method Nom (Bld) Auto [facility] Eosinophils (Bld) [#/Vol] 0.06 10*3/uL <0.46 k/uL [facility] Eosinophils/100 WBC (Bld) 0.7 % [facility] Erythrocyte distribution width (RBC) [Ratio] 14.3 % 11.5 - 15.0 % [facility] Hematocrit (Bld) [Volume fraction] 35.6 % Low 39.0 - 51.0 % [facility] Hemoglobin (Bld) [Mass/Vol] 11.3 g/dL Low 13.0 - 17.0 g/dL [facility] Immature granulocytes (Bld) [#/Vol] <0.10 k/uL [facility] Immature granulocytes/100 WBC (Bld) 0.2 % [facility] Lymphocytes (Bld) [#/Vol] 1.48 10*3/uL 1.00 - 4.00 k/uL [facility] Lymphocytes/100 WBC (Bld) 17.4 % [facility] MCH (RBC) [Entitic mass] 31.1 pg 26.0 - 34.0 pg [facility] MCHC (RBC) [Mass/Vol] 31.7 g/dL 30.5 - 36.0 g/dL [facility] MCV (RBC) [Entitic vol] 98.1 fL 80.0 - 100.0 fL [facility] Monocytes (Bld) [#/Vol] 0.68 10*3/uL <0.87 k/uL [facility] Monocytes/100 WBC (Bld) 8.0 % [facility] Neutrophils (Bld) [#/Vol] 6.24 10*3/uL 1.45 - 7.50 k/uL [facility] Neutrophils/100 WBC (Bld) 73.5 % [facility] Nucleated RBC (Bld) [#/Vol] <0.01 k/uL [facility] Nucleated RBC/100 WBC (Bld) [Ratio] 0.0 /100 WBC [facility] Platelet mean volume (Bld) [Entitic vol] 10.6 fL 9.0 - 12.7 fL [facility] Platelets (Bld) [#/Vol] 260 10*3/uL 150 - 400 k/uL [facility] RBC (Bld) [#/Vol] 3.63 10*6/uL Low 4.20 - 6.0 0 m/uL [facility] WBC (Bld) [#/Vol] 8.50 10*3/uL 3.70 - 11.00 k/uL [facility] Comprehensive metabolic 2000 panelon 09-29-2022 Albumin [Mass/Vol] 4.0 g/dL 3.9 - 4.9 g/dL [facility] ALP [Catalytic activity/Vol] 170 U/L High 38 - 113 U/L [facility] ALT [Catalytic activity/Vol] 23 U/L 10 - 54 U/L [facility] Anion gap [Moles/Vol] 9 mmol/L 9 - 18 mmol/L [facility] AST [Catalytic activity/Vol] 18 U/L 14 - 40 U/L [facility] Bilirubin [Mass/Vol] 1.1 mg/dL 0.2 - 1 .3 mg/dL [facility] Calcium [Mass/Vol] 10.4 mg/dL High 8.5 - 10. 2 mg/dL [facility] Chloride [Moles/Vol] 100 mmol/L 97 - 10 5 mmol/L [facility] CO2 [Moles/Vol] 25 mmol/L 22 - 30 mmol/L [facility] Creatinine [Mass/Vol] 0.75 mg/dL 0.73 - 1.22 mg/dL [facility] Estimated Glomerular Filtration Rate 96 mL/min/1.73m >=60 mL/min/1.73 m [facility] Glucose [Mass/Vol] 377 mg/dL High 74 - 99 mg/dL [facility] Potassium [Moles/Vol] 5.0 mmol/L 3.7 - 5.1 mmol/L [facility] Protein [Mass/Vol] 7.1 g/dL 6.3 - 8.0 g/dL [facility] Sodium [Moles/Vol] 134 mmol/L Low 136 - 144 mmol/L [facility] Urea nitrogen [Mass/Vol] 19 mg/dL 9 - 24 mg/dL [facility] CBC W Auto Differential pane l (Bld)on 08-02-2022 Basophils (Bld) [#/Vol] <0.11 k/uL [facility] Basophils/100 WBC (Bld) 0.2 % [facility] Differential cell count method Nom (Bld) Auto [facility] Eosinophils (Bld) [#/Vol] 0.07 10*3/uL <0.46 k/uL [facility] Eosinophils/100 WBC (Bld) 0.7 % [facility] Erythrocyte distribution width (RBC) [Ratio] 15.3 % High 11.5 - 15.0 % [facility] Hematocrit (Bld) [Volume fraction] 35.3 % Low 39.0 - 51.0 % [facility] Hemoglobin (Bld) [Mass/Vol] 11.5 g/dL Low 13.0 - 17.0 g/dL [facility] Immature granulocytes (Bld) [#/Vol] 0.03 10*3/uL <0.10 k/uL [facility] Immature granulocytes/100 WBC (Bld) 0.3 % [facility] Lymphocytes (Bld) [#/Vol] 1.91 10*3/uL 1.00 - 4.00 k/uL [facility] Lymphocytes/100 WBC (Bld) 20.2 % [facility] MCH (RBC) [Entitic mass] 31.3 pg 26.0 - 34.0 pg [facility] MCHC (RBC) [Mass/Vol] 32.6 g/dL 30.5 - 36.0 g/dL [facility] MCV (RBC) [Entitic vol] 96.2 fL 80.0 - 100.0 fL [facility] Monocytes (Bld) [#/Vol] 0.81 10*3/uL <0.87 k/uL [facility] Monocytes/100 WBC (Bld) 8.6 % [facility] Neutrophils (Bld) [#/Vol] 6.60 10*3/uL 1.45 - 7.50 k/uL [facility] Neutrophils/100 WBC (Bld) 70.0 % [facility] Nucleated RBC (Bld) [#/Vol] <0.01 k/uL [facility] Nucleated RBC/100 WBC (Bld) [Ratio] 0.0 /100 WBC [facility] Platelet mean volume (Bld) [Entitic vol] 10.2 fL 9.0 - 12.7 fL [facility] Platelets (Bld) [#/Vol] 257 10*3/uL 150 - 400 k/uL [facility] RBC (Bld) [#/Vol] 3.67 10*6/uL Low 4.20 - 6.0 0 m/uL [facility] WBC (Bld) [#/Vol] 9.44 10*3/uL 3.70 - 11.00 k/uL [facility] Comprehensive metabolic 2000 panelon 08-02-2022 Albumin [Mass/Vol] 4.2 g/dL 3.9 - 4.9 g/dL [facility] ALP [Catalytic activity/Vol] 140 U/L High 38 - 113 U/L [facility] ALT [Catalytic activity/Vol] 17 U/L 10 - 54 U/L [facility] Anion gap [Moles/Vol] 8 mmol/L Low 9 - 18 mmol/L [facility] AST [Catalytic activity/Vol] 20 U/L 14 - 40 U/L [facility] Bilirubin [Mass/Vol] 1.0 mg/dL 0.2 - 1 .3 mg/dL [facility] Calcium [Mass/Vol] 10.6 mg/dL High 8.5 - 10. 2 mg/dL [facility] Chloride [Moles/Vol] 105 mmol/L 97 - 10 5 mmol/L [facility] CO2 [Moles/Vol] 24 mmol/L 22 - 30 mmol/L [facility] Creatinine [Mass/Vol] 0.81 mg/dL 0.73 - 1.22 mg/dL [facility] Estimated Glomerular Filtration Rate 94 mL/min/1.73m >=60 mL/min/1.73 m [facility] Glucose [Mass/Vol] 151 mg/dL High 74 - 99 mg/dL [facility] Potassium [Moles/Vol] 4.7 mmol/L 3.7 - 5.1 mmol/L [facility] Protein [Mass/Vol] 7.3 g/dL 6.3 - 8.0 g/dL [facility] Sodium [Moles/Vol] 137 mmol/L 136 - 144 mmol/L [facility] Urea nitrogen [Mass/Vol] 18 mg/dL 9 - 24 mg/dL [facility] CBC W Auto Differential pane l (Bld)on 06-29-2022 Basophils (Bld) [#/Vol] 0.03 10*3/uL <0.11 k/uL [facility] Basophils/100 WBC (Bld) 0.3 % [facility] Differential cell count method Nom (Bld) Auto [facility] Eosinophils (Bld) [#/Vol] 0.09 10*3/uL <0.46 k/uL [facility] Eosinophils/100 WBC (Bld) 0.9 % [facility] Erythrocyte distribution width (RBC) [Ratio] 15.3 % High 11.5 - 15.0 % [facility] Hematocrit (Bld) [Volume fraction] 36.8 % Low 39.0 - 51.0 % [facility] Hemoglobin (Bld) [Mass/Vol] 11.7 g/dL Low 13.0 - 17.0 g/dL [facility] Immature granulocytes (Bld) [#/Vol] 0.03 10*3/uL <0.10 k/uL [facility] Immature granulocytes/100 WBC (Bld) 0.3 % [facility] Lymphocytes (Bld) [#/Vol] 2.15 10*3/uL 1.00 - 4.00 k/uL [facility] Lymphocytes/100 WBC (Bld) 20.9 % [facility] MCH (RBC) [Entitic mass] 30.5 pg 26.0 - 34.0 pg [facility] MCHC (RBC) [Mass/Vol] 31.8 g/dL 30.5 - 36.0 g/dL [facility] MCV (RBC) [Entitic vol] 96.1 fL 80.0 - 100.0 fL [facility] Monocytes (Bld) [#/Vol] 1.05 10*3/uL High <0.87 k/uL [facility] Monocytes/100 WBC (Bld) 10.2 % [facility] Neutrophils (Bld) [#/Vol] 6.95 10*3/uL 1.45 - 7.50 k/uL [facility] Neutrophils/100 WBC (Bld) 67.4 % [facility] Nucleated RBC (Bld) [#/Vol] <0.01 k/uL [facility] Nucleated RBC/100 WBC (Bld) [Ratio] 0.0 /100 WBC [facility] Platelet mean volume (Bld) [Entitic vol] 9.8 fL 9.0 - 12.7 fL [facility] Platelets (Bld) [#/Vol] 288 10*3/uL 150 - 400 k/uL [facility] RBC (Bld) [#/Vol] 3.83 10*6/uL Low 4.20 - 6.0 0 m/uL [facility] WBC (Bld) [#/Vol] 10.30 10*3/uL 3.70 - 11.00 k/uL [facility] Comprehensive metabolic 2000 panelon 06-29-2022 Albumin [Mass/Vol] 4.2 g/dL 3.9 - 4.9 g/dL [facility] ALP [Catalytic activity/Vol] 146 U/L High 38 - 113 U/L [facility] ALT [Catalytic activity/Vol] 21 U/L 10 - 54 U/L [facility] Anion gap [Moles/Vol] 8 mmol/L Low 9 - 18 mmol/L [facility] AST [Catalytic activity/Vol] 20 U/L 14 - 40 U/L [facility] Bilirubin [Mass/Vol] 0.9 mg/dL 0.2 - 1 .3 mg/dL [facility] Calcium [Mass/Vol] 10.6 mg/dL High 8.5 - 10. 2 mg/dL [facility] Chloride [Moles/Vol] 100 mmol/L 97 - 10 5 mmol/L [facility] CO2 [Moles/Vol] 25 mmol/L 22 - 30 mmol/L [facility] Creatinine [Mass/Vol] 0.83 mg/dL 0.73 - 1.22 mg/dL [facility] Estimated Glomerular Filtration Rate 94 mL/min/1.73m >=60 mL/min/1.73 m [facility] Glucose [Mass/Vol] 189 mg/dL High 74 - 99 mg/dL [facility] Potassium [Moles/Vol] 4.7 mmol/L 3.7 - 5.1 mmol/L [facility] Protein [Mass/Vol] 7.6 g/dL 6.3 - 8.0 g/dL [facility] Sodium [Moles/Vol] 133 mmol/L Low 136 - 144 mmol/L [facility] Urea nitrogen [Mass/Vol] 21 mg/dL 9 - 24 mg/dL [facility] CBC W Auto Differential pane l (Bld)on 06-01-2022 Basophils (Bld) [#/Vol] 0.05 10*3/uL <0.11 k/uL [facility] Basophils/100 WBC (Bld) 0.6 % [facility] Differential cell count method Nom (Bld) Auto [facility] Eosinophils (Bld) [#/Vol] 0.11 10*3/uL <0.46 k/uL [facility] Eosinophils/100 WBC (Bld) 1.3 % [facility] Erythrocyte distribution width (RBC) [Ratio] 15.9 % High 11.5 - 15.0 % [facility] Hematocrit (Bld) [Volume fraction] 34.6 % Low 39.0 - 51.0 % [facility] Hemoglobin (Bld) [Mass/Vol] 11.0 g/dL Low 13.0 - 17.0 g/dL [facility] Immature granulocytes (Bld) [#/Vol] 0.03 10*3/uL <0.10 k/uL [facility] Immature granulocytes/100 WBC (Bld) 0.4 % [facility] Lymphocytes (Bld) [#/Vol] 1.92 10*3/uL 1.00 - 4.00 k/uL [facility] Lymphocytes/100 WBC (Bld) 22.6 % [facility] MCH (RBC) [Entitic mass] 31.7 pg 26.0 - 34.0 pg [facility] MCHC (RBC) [Mass/Vol] 31.8 g/dL 30.5 - 36.0 g/dL [facility] MCV (RBC) [Entitic vol] 99.7 fL 80.0 - 100.0 fL [facility] Monocytes (Bld) [#/Vol] 0.95 10*3/uL High <0.87 k/uL [facility] Monocytes/100 WBC (Bld) 11.2 % [facility] Neutrophils (Bld) [#/Vol] 5.43 10*3/uL 1.45 - 7.50 k/uL [facility] Neutrophils/100 WBC (Bld) 63.9 % [facility] Nucleated RBC (Bld) [#/Vol] <0.01 k/uL [facility] Nucleated RBC/100 WBC (Bld) [Ratio] 0.0 /100 WBC [facility] Platelet mean volume (Bld) [Entitic vol] 9.9 fL 9.0 - 12.7 fL [facility] Platelets (Bld) [#/Vol] 354 10*3/uL 150 - 400 k/uL [facility] RBC (Bld) [#/Vol] 3.47 10*6/uL Low 4.20 - 6.0 0 m/uL [facility] WBC (Bld) [#/Vol] 8.49 10*3/uL 3.70 - 11.00 k/uL [facility] Comprehensive metabolic 2000 panelon 06-01-2022 Albumin [Mass/Vol] 4.3 g/dL 3.9 - 4.9 g/dL [facility] ALP [Catalytic activity/Vol] 138 U/L High 38 - 113 U/L [facility] ALT [Catalytic activity/Vol] 20 U/L 10 - 54 U/L [facility] Anion gap [Moles/Vol] 7 mmol/L Low 9 - 18 mmol/L [facility] AST [Catalytic activity/Vol] 19 U/L 14 - 40 U/L [facility] Bilirubin [Mass/Vol] 0.5 mg/dL 0.2 - 1 .3 mg/dL [facility] Calcium [Mass/Vol] 10.1 mg/dL 8.5 - 10. 2 mg/dL [facility] Chloride [Moles/Vol] 103 mmol/L 97 - 10 5 mmol/L [facility] CO2 [Moles/Vol] 25 mmol/L 22 - 30 mmol/L [facility] Creatinine [Mass/Vol] 0.76 mg/dL 0.73 - 1.22 mg/dL [facility] Estimated Glomerular Filtration Rate 96 mL/min/1.73m >=60 mL/min/1.73 m [facility] Glucose [Mass/Vol] 179 mg/dL High 74 - 99 mg/dL [facility] Potassium [Moles/Vol] 4.9 mmol/L 3.7 - 5.1 mmol/L [facility] Protein [Mass/Vol] 6.9 g/dL 6.3 - 8.0 g/dL [facility] Sodium [Moles/Vol] 135 mmol/L Low 136 - 144 mmol/L [facility] Urea nitrogen [Mass/Vol] 20 mg/dL 9 - 24 mg/dL [facility] CBC W Auto Differential pane l (Bld)on 05-11-2022 Basophils (Bld) [#/Vol] <0.11 k/uL [facility] Basophils/100 WBC (Bld) 0.3 % [facility] Differential cell count method Nom (Bld) Auto [facility] Eosinophils (Bld) [#/Vol] 0.10 10*3/uL <0.46 k/uL [facility] Eosinophils/100 WBC (Bld) 1.6 % [facility] Erythrocyte distribution width (RBC) [Ratio] 16.8 % High 11.5 - 15.0 % [facility] Hematocrit (Bld) [Volume fraction] 30.7 % Low 39.0 - 51.0 % [facility] Hemoglobin (Bld) [Mass/Vol] 9.5 g/dL Low 13.0 - 17.0 g/dL [facility] Immature granulocytes (Bld) [#/Vol] 0.03 10*3/uL <0.10 k/uL [facility] Immature granulocytes/100 WBC (Bld) 0.5 % [facility] Lymphocytes (Bld) [#/Vol] 1.49 10*3/uL 1.00 - 4.00 k/uL [facility] Lymphocytes/100 WBC (Bld) 24.0 % [facility] MCH (RBC) [Entitic mass] 31.6 pg 26.0 - 34.0 pg [facility] MCHC (RBC) [Mass/Vol] 30.9 g/dL 30.5 - 36.0 g/dL [facility] MCV (RBC) [Entitic vol] 102.0 fL High 80.0 - 100.0 fL [facility] Monocytes (Bld) [#/Vol] 0.79 10*3/uL <0.87 k/uL [facility] Monocytes/100 WBC (Bld) 12.7 % [facility] Neutrophils (Bld) [#/Vol] 3.79 10*3/uL 1.45 - 7.50 k/uL [facility] Neutrophils/100 WBC (Bld) 60.9 % [facility] Nucleated RBC (Bld) [#/Vol] <0.01 k/uL [facility] Nucleated RBC/100 WBC (Bld) [Ratio] 0.0 /100 WBC [facility] Platelet mean volume (Bld) [Entitic vol] 9.9 fL 9.0 - 12.7 fL [facility] Platelets (Bld) [#/Vol] 347 10*3/uL 150 - 400 k/uL [facility] RBC (Bld) [#/Vol] 3.01 10*6/uL Low 4.20 - 6.0 0 m/uL [facility] WBC (Bld) [#/Vol] 6.22 10*3/uL 3.70 - 11.00 k/uL [facility] Comprehensive metabolic 2000 panelon 05-11-2022 Albumin [Mass/Vol] 3.9 g/dL 3.9 - 4.9 g/dL [facility] ALP [Catalytic activity/Vol] 134 U/L High 38 - 113 U/L [facility] ALT [Catalytic activity/Vol] 20 U/L 10 - 54 U/L [facility] Anion gap [Moles/Vol] 7 mmol/L Low 9 - 18 mmol/L [facility] AST [Catalytic activity/Vol] 19 U/L 14 - 40 U/L [facility] Bilirubin [Mass/Vol] 0.6 mg/dL 0.2 - 1 .3 mg/dL [facility] Calcium [Mass/Vol] 9.8 mg/dL 8.5 - 10. 2 mg/dL [facility] Chloride [Moles/Vol] 105 mmol/L 97 - 10 5 mmol/L [facility] CO2 [Moles/Vol] 24 mmol/L 22 - 30 mmol/L [facility] Creatinine [Mass/Vol] 0.71 mg/dL Low 0.73 - 1.22 mg/dL [facility] Estimated Glomerular Filtration Rate 98 mL/min/1.73m >=60 mL/min/1.73 m [facility] Glucose [Mass/Vol] 240 mg/dL High 74 - 99 mg/dL [facility] Potassium [Moles/Vol] 4.6 mmol/L 3.7 - 5.1 mmol/L [facility] Protein [Mass/Vol] 6.5 g/dL 6.3 - 8.0 g/dL [facility] Sodium [Moles/Vol] 136 mmol/L 136 - 144 mmol/L [facility] Urea nitrogen [Mass/Vol] 17 mg/dL 9 - 24 mg/dL [facility] CBC W Auto Differential pane l (Bld)on 04-26-2022 Basophils (Bld) [#/Vol] 0.05 10*3/uL <0.11 k/uL [facility] Basophils/100 WBC (Bld) 0.8 % [facility] Differential cell count method Nom (Bld) Auto [facility] Eosinophils (Bld) [#/Vol] 0.04 10*3/uL <0.46 k/uL [facility] Eosinophils/100 WBC (Bld) 0.6 % [facility] Erythrocyte distribution width (RBC) [Ratio] 15.9 % High 11.5 - 15.0 % [facility] Hematocrit (Bld) [Volume fraction] 26.9 % Low 39.0 - 51.0 % [facility] Hemoglobin (Bld) [Mass/Vol] 8.5 g/dL Low 13.0 - 17.0 g/dL [facility] Immature granulocytes (Bld) [#/Vol] 0.07 10*3/uL <0.10 k/uL [facility] Immature granulocytes/100 WBC (Bld) 1.1 % [facility] Lymphocytes (Bld) [#/Vol] 1.73 10*3/uL 1.00 - 4.00 k/uL [facility] Lymphocytes/100 WBC (Bld) 28.1 % [facility] MCH (RBC) [Entitic mass] 32.2 pg 26.0 - 34.0 pg [facility] MCHC (RBC) [Mass/Vol] 31.6 g/dL 30.5 - 36.0 g/dL [facility] MCV (RBC) [Entitic vol] 101.9 fL High 80.0 - 100.0 fL [facility] Monocytes (Bld) [#/Vol] 0.28 10*3/uL <0.87 k/uL [facility] Monocytes/100 WBC (Bld) 4.5 % [facility] Neutrophils (Bld) [#/Vol] 3.99 10*3/uL 1.45 - 7.50 k/uL [facility] Neutrophils/100 WBC (Bld) 64.9 % [facility] Nucleated RBC (Bld) [#/Vol] <0.01 k/uL [facility] Nucleated RBC/100 WBC (Bld) [Ratio] 0.0 /100 WBC [facility] Platelet mean volume (Bld) [Entitic vol] 9.4 fL 9.0 - 12.7 fL [facility] Platelets (Bld) [#/Vol] 413 10*3/uL High 150 - 400 k/uL [facility] RBC (Bld) [#/Vol] 2.64 10*6/uL Low 4.20 - 6.0 0 m/uL [facility] WBC (Bld) [#/Vol] 6.16 10*3/uL 3.70 - 11.00 k/uL [facility] Comprehensive metabolic 2000 panelon 04-26-2022 Albumin [Mass/Vol] 4.0 g/dL 3.9 - 4.9 g/dL [facility] ALP [Catalytic activity/Vol] 129 U/L High 38 - 113 U/L [facility] ALT [Catalytic activity/Vol] 31 U/L 10 - 54 U/L [facility] Anion gap [Moles/Vol] 8 mmol/L Low 9 - 18 mmol/L [facility] AST [Catalytic activity/Vol] 29 U/L 14 - 40 U/L [facility] Bilirubin [Mass/Vol] 0.7 mg/dL 0.2 - 1 .3 mg/dL [facility] Calcium [Mass/Vol] 10.4 mg/dL High 8.5 - 10. 2 mg/dL [facility] Chloride [Moles/Vol] 103 mmol/L 97 - 10 5 mmol/L [facility] CO2 [Moles/Vol] 25 mmol/L 22 - 30 mmol/L [facility] Creatinine [Mass/Vol] 0.80 mg/dL 0.73 - 1.22 mg/dL [facility] Estimated Glomerular Filtration Rate 95 mL/min/1.73m >=60 mL/min/1.73 m [facility] Glucose [Mass/Vol] 127 mg/dL High 74 - 99 mg/dL [facility] Potassium [Moles/Vol] 4.5 mmol/L 3.7 - 5.1 mmol/L [facility] Protein [Mass/Vol] 6.8 g/dL 6.3 - 8.0 g/dL [facility] Sodium [Moles/Vol] 136 mmol/L 136 - 144 mmol/L [facility] Urea nitrogen [Mass/Vol] 13 mg/dL 9 - 24 mg/dL [facility] CBC W Auto Differential pane l (Bld)on 04-20-2022 Basophils (Bld) [#/Vol] 0.03 10*3/uL <0.11 k/uL [facility] Basophils/100 WBC (Bld) 0.4 % [facility] Differential cell count method Nom (Bld) Auto [facility] Eosinophils (Bld) [#/Vol] 0.10 10*3/uL <0.46 k/uL [facility] Eosinophils/100 WBC (Bld) 1.2 % [facility] Erythrocyte distribution width (RBC) [Ratio] 16.8 % High 11.5 - 15.0 % [facility] Hematocrit (Bld) [Volume fraction] 29.4 % Low 39.0 - 51.0 % [facility] Hemoglobin (Bld) [Mass/Vol] 9.2 g/dL Low 13.0 - 17.0 g/dL [facility] Immature granulocytes (Bld) [#/Vol] 0.05 10*3/uL <0.10 k/uL [facility] Immature granulocytes/100 WBC (Bld) 0.6 % [facility] Lymphocytes (Bld) [#/Vol] 1.46 10*3/uL 1.00 - 4.00 k/uL [facility] Lymphocytes/100 WBC (Bld) 18.0 % [facility] MCH (RBC) [Entitic mass] 32.5 pg 26.0 - 34.0 pg [facility] MCHC (RBC) [Mass/Vol] 31.3 g/dL 30.5 - 36.0 g/dL [facility] MCV (RBC) [Entitic vol] 103.9 fL High 80.0 - 100.0 fL [facility] Monocytes (Bld) [#/Vol] 0.89 10*3/uL High <0.87 k/uL [facility] Monocytes/100 WBC (Bld) 11.0 % [facility] Neutrophils (Bld) [#/Vol] 5.56 10*3/uL 1.45 - 7.50 k/uL [facility] Neutrophils/100 WBC (Bld) 68.8 % [facility] Nucleated RBC (Bld) [#/Vol] <0.01 k/uL [facility] Nucleated RBC/100 WBC (Bld) [Ratio] 0.0 /100 WBC [facility] Platelet mean volume (Bld) [Entitic vol] 9.5 fL 9.0 - 12.7 fL [facility] Platelets (Bld) [#/Vol] 363 10*3/uL 150 - 400 k/uL [facility] RBC (Bld) [#/Vol] 2.83 10*6/uL Low 4.20 - 6.0 0 m/uL [facility] WBC (Bld) [#/Vol] 8.09 10*3/uL 3.70 - 11.00 k/uL [facility] metabolic 1999 panelon 04-20-2022 Albumin [Mass/Vol] 3.9 g/dL 3.9 - 4.9 g/dL [facility] ALP [Catalytic activity/Vol] 138 U/L High 38 - 113 U/L [facility] ALT [Catalytic activity/Vol] 18 U/L 10 - 54 U/L [facility] Anion gap [Moles/Vol] 8 mmol/L Low 9 - 18 mmol/L [facility] AST [Catalytic activity/Vol] 18 U/L 14 - 40 U/L [facility] Bilirubin [Mass/Vol] 0.7 mg/dL 0.2 - 1 .3 mg/dL [facility] Calcium [Mass/Vol] 9.7 mg/dL 8.5 - 10. 2 mg/dL [facility] Chloride [Moles/Vol] 103 mmol/L 97 - 10 5 mmol/L [facility] CO2 [Moles/Vol] 24 mmol/L 22 - 30 mmol/L [facility] Creatinine [Mass/Vol] 0.73 mg/dL 0.73 - 1.22 mg/dL [facility] Estimated Glomerular Filtration Rate 98 mL/min/1.73m >=60 mL/min/1.73 m [facility] Glucose [Mass/Vol] 107 mg/dL High 74 - 99 mg/dL [facility] Potassium [Moles/Vol] 4.8 mmol/L 3.7 - 5.1 mmol/L [facility] Protein [Mass/Vol] 6.6 g/dL 6.3 - 8.0 g/dL [facility] Sodium [Moles/Vol] 135 mmol/L Low 136 - 144 mmol/L [facility] Urea nitrogen [Mass/Vol] 16 mg/dL 9 - 24 mg/dL [facility] metabolic 1999 panelon 04-06-2022 Albumin [Mass/Vol] 4.1 g/dL 3.9 - 4.9 g/dL [facility] ALP [Catalytic activity/Vol] 155 U/L High 38 - 113 U/L [facility] ALT [Catalytic activity/Vol] 38 U/L 10 - 54 U/L [facility] Anion gap [Moles/Vol] 8 mmol/L Low 9 - 18 mmol/L [facility] AST [Catalytic activity/Vol] 32 U/L 14 - 40 U/L [facility] Bilirubin [Mass/Vol] 0.7 mg/dL 0.2 - 1 .3 mg/dL [facility] Calcium [Mass/Vol] 9.9 mg/dL 8.5 - 10. 2 mg/dL [facility] Chloride [Moles/Vol] 106 mmol/L High 97 - 10 5 mmol/L [facility] CO2 [Moles/Vol] 26 mmol/L 22 - 30 mmol/L [facility] Creatinine [Mass/Vol] 0.74 mg/dL 0.73 - 1.22 mg/dL [facility] Estimated Glomerular Filtration Rate 97 mL/min/1.73m >=60 mL/min/1.73 m [facility] Glucose [Mass/Vol] 160 mg/dL High 74 - 99 mg/dL [facility] Potassium [Moles/Vol] 5.0 mmol/L 3.7 - 5.1 mmol/L [facility] Protein [Mass/Vol] 6.8 g/dL 6.3 - 8.0 g/dL [facility] Sodium [Moles/Vol] 140 mmol/L 136 - 144 mmol/L [facility] Urea nitrogen [Mass/Vol] 14 mg/dL 9 - 24 mg/dL [facility] CBC W Auto Differential pane l (Bld)on 03-16-2022 Basophils (Bld) [#/Vol] 0.04 10*3/uL <0.11 k/uL [facility] Basophils/100 WBC (Bld) 1.1 % [facility] Differential cell count method Nom (Bld) Auto [facility] Eosinophils (Bld) [#/Vol] 0.04 10*3/uL <0.46 k/uL [facility] Eosinophils/100 WBC (Bld) 1.1 % [facility] Erythrocyte distribution width (RBC) [Ratio] 14.4 % 11.5 - 15.0 % [facility] Hematocrit (Bld) [Volume fraction] 25.4 % Low 39.0 - 51.0 % [facility] Hemoglobin (Bld) [Mass/Vol] 8.5 g/dL Low 13.0 - 17.0 g/dL [facility] Immature granulocytes (Bld) [#/Vol] <0.10 k/uL [facility] Immature granulocytes/100 WBC (Bld) 0.5 % [facility] Lymphocytes (Bld) [#/Vol] 1.38 10*3/uL 1.00 - 4.00 k/uL [facility] Lymphocytes/100 WBC (Bld) 37.9 % [facility] MCH (RBC) [Entitic mass] 33.7 pg 26.0 - 34.0 pg [facility] MCHC (RBC) [Mass/Vol] 33.5 g/dL 30.5 - 36.0 g/dL [facility] MCV (RBC) [Entitic vol] 100.8 fL High 80.0 - 100.0 fL [facility] Monocytes (Bld) [#/Vol] 0.28 10*3/uL <0.87 k/uL [facility] Monocytes/100 WBC (Bld) 7.7 % [facility] Neutrophils (Bld) [#/Vol] 1.88 10*3/uL 1.45 - 7.50 k/uL [facility] Neutrophils/100 WBC (Bld) 51.7 % [facility] Nucleated RBC (Bld) [#/Vol] <0.01 k/uL [facility] Nucleated RBC/100 WBC (Bld) [Ratio] 0.0 /100 WBC [facility] Platelet mean volume (Bld) [Entitic vol] 10.1 fL 9.0 - 12.7 fL [facility] Platelets (Bld) [#/Vol] 174 10*3/uL 150 - 400 k/uL [facility] RBC (Bld) [#/Vol] 2.52 10*6/uL Low 4.20 - 6.0 0 m/uL [facility] WBC (Bld) [#/Vol] 3.64 10*3/uL Low 3.70 - 11.00 k/uL [facility] Comprehensive metabolic 2000 panelon 03-16-2022 Albumin [Mass/Vol] 4.0 g/dL 3.9 - 4.9 g/dL [facility] ALP [Catalytic activity/Vol] 153 U/L High 38 - 113 U/L [facility] ALT [Catalytic activity/Vol] 27 U/L 10 - 54 U/L [facility] Anion gap [Moles/Vol] 5 mmol/L Low 9 - 18 mmol/L [facility] AST [Catalytic activity/Vol] 22 U/L 14 - 40 U/L [facility] Bilirubin [Mass/Vol] 1.0 mg/dL 0.2 - 1 .3 mg/dL [facility] Calcium [Mass/Vol] 10.0 mg/dL 8.5 - 10. 2 mg/dL [facility] Chloride [Moles/Vol] 103 mmol/L 97 - 10 5 mmol/L [facility] CO2 [Moles/Vol] 26 mmol/L 22 - 30 mmol/L [facility] Creatinine [Mass/Vol] 0.73 mg/dL 0.73 - 1.22 mg/dL [facility] Estimated Glomerular Filtration Rate 98 mL/min/1.73m >=60 mL/min/1.73 m [facility] Glucose [Mass/Vol] 125 mg/dL High 74 - 99 mg/dL [facility] Potassium [Moles/Vol] 4.5 mmol/L 3.7 - 5.1 mmol/L [facility] Protein [Mass/Vol] 6.7 g/dL 6.3 - 8.0 g/dL [facility] Sodium [Moles/Vol] 134 mmol/L Low 136 - 144 mmol/L [facility] Urea nitrogen [Mass/Vol] 16 mg/dL 9 - 24 mg/dL [facility] PSA TOTAL AND %FREEon 2021 % FREE PSA 22 % Normal [facility] [place] above: Result Comment: INTE RPRETIVE INFORMATION: Prostate Specific Antigen, Free Percentage [facility] uses the Connie Free PSA electrochemiluminescent immunoassay [...] prostate cancer in individual patients. Performed By: [employer] [address] [place] [address] Acute Care Certified Nursing Assistant: Marnie Diaz MD Performed By: #### P SAFT #### [facility] [address] [place] [address] PSA,FREE 0.4 ng/mL Normal [facility] [place] on above: Performed By: #### P SAFT #### [facility] [address] [place] [address] PSA,TOTAL 1.8 ng/mL Normal 0.0-4.0 [facility] [place] on above: Result Comment: INTE RPRETIVE [...] carcinoma. Performed By: #### P SAFT #### [address] [place] [address] RESPIRATORY PANEL PLUSon Adenovirus Not detected Normal NOT DETECTED [facility] Comment on above: Performed By: #### R SPLUS #### [facility] [address] [place] [address] Dr. Karen So Parapertusis Not detected Normal NOT DETECTED [facility] Comment on above: Performed By: #### R SPLUS #### [facility] [address] [place] [address] Dr. Karen So Pertussis Not detected Normal NOT DETECTED [facility] Comment on above: Performed By: #### R SPLUS #### [facility] [address] [place] [address] Dr. Karen Connolly Chlamydia Pneumoniae Not detected Normal NOT DETECTED [facility] Comment on above: Performed By: #### R SPLUS #### [facility] [address] [place] [address] Dr. Karen Connolly Coronavirus 229E Not detected Normal NOT DETECTED [facility] Comment on above: Performed By: #### R SPLUS #### [facility] [address] [place] [address] Dr. Karen Connolly Coronavirus HKU1 Not detected Normal NOT DETECTED [facility] Comment on above: Performed By: #### R SPLUS #### [facility] [address] [place] [address] Dr. Karen Connolly Coronavirus NL63 Not detected Normal NOT DETECTED [facility] Comment on above: Performed By: #### R SPLUS #### [facility] [address] [place] [address] Dr. Karen Connolly Coronavirus OC43 Not detected Normal NOT DETECTED [facility] Comment on above: Performed By: #### R SPLUS #### [facility] [address] [place] [address] Dr. Karen Connolly Influenza A H1 2008 Not detected Normal NOT DETECTED [facility] Comment on above: Performed By: #### R SPLUS #### [facility] [address] [place] [address] Dr. Karen Connolly Influenza B Not detected Normal NOT DETECTED [facility] Comment on above: Performed By: #### R SPLUS #### [facility] [address] [place] [address] Dr. Karen Connolly Metapneumovirus Not detected Normal NOT DETECTED [facility] Comment on above: Performed By: #### R SPLUS #### [facility] [address] [place] [address] Dr. Karen Connolly Mycoplas. Pneumoniae Not detected Normal NOT DETECTED [facility] Comment on above: Performed By: #### R SPLUS #### [facility] [address] [place] [address] Dr. Karen Connolly Parainfluenza 1 Not detected Normal NOT DETECTED [facility] Comment on above: Performed By: #### R SPLUS #### [facility] [address] [place] [address] Dr. Karen Connolly Parainfluenza 2 Not detected Normal NOT DETECTED [facility] Comment on above: Performed By: #### R SPLUS #### [facility] [address] [place] [address] Dr. Karen Connolly Parainfluenza 3 Not detected Normal NOT DETECTED [facility] Comment on above: Performed By: #### R SPLUS #### [facility] [address] [place] [address] Dr. Karen Connolly Parainfluenza 4 Not detected Normal NOT DETECTED [facility] Comment on above: Performed By: #### R SPLUS #### [facility] [address] [place] [address] Dr. Karen Connolly Rhino/Enterovirus Not detected Normal NOT DETECTED [facility] Comment on above: Performed By: #### R SPLUS #### [facility] [address] [place] [address] Dr. Karen Connolly RP2 Header 1 RESPIRATORY PANEL: VIRUSES Normal [facility] Comment on above: Performed By: #### R SPLUS #### [facility] [address] [place] [address] Dr. Karen Connolly RP2 Header 2 RESPIRATORY PANEL: BACTERIA Normal [facility] Comment on above: Performed By: #### R SPLUS #### [facility] [address] [place] [address] Dr. Karen Connolly RSV Not detected Normal NOT DETECTED [facility] Comment on above: Performed By: #### R SPLUS #### [facility] [address] [place] [address] Dr. Karen Connolly SARS-CoV-2 (COVID-19) RNA MIRTHA+probe Ql (Unsp spec) Detected Critically abnormal NOT DETECTED [facility] Comment on above: Performed By: #### R SPLUS #### [facility] [address] [place] [address] Dr. Karen Connolly [facility] 03-15-2021 [facility] ID: [id number] Author: RT Chauncey(R) Service: ? Author Type: [...] Completed: Body: Pancreas/Biliary SIGNATURE: Steph Segura RT, RT Chauncey(R) PATIENT NAME: Uriel Anderson DATE: March 15, 2021 TIME: 2:17 PM [facility] MRI PANC/SADIE WO/W IVCONon MRI PANC/SADIE WO/W IVCON * * *Final Report* * * DATE OF EXAM: Mar 15 2021 2:55PM [facility] 0730 - MRI PANC/SADIE WO/W IVCON / [...] diffusion weighted and T1 weighted in- and [id number]-fcici images were obtained. Then, using a 3-D [...] hepatic lobe. 5. No drainable fluid collections. Billing Rep: [facility] Transcribe Date/Time: Mar 15 2021 3:29P Dictated by : ALISA ACUNA MD This examination was interpreted and the report reviewed and electronically signed by: ALISA ACUNA MD on Mar 15 2021 4:09PM EST [id number] Normal [facility] CBC AUTO DIFFon 03-11-2021 BASO # 0.0 103/ul Normal 0.0-0.1 [facility] Comment on above: Performed By: #### C BC #### [facility] [address] [place] [address] Dr. Karen Connolly Basophils/100 WBC (Bld) 0.4 % Normal 0.2-2.0 [facility] Comment on above: Performed By: #### C BC #### [facility] [address] [place] [address] Dr. Karen Connolly EO # 0.1 103/ul Normal 0.0-0.7 [facility] Comment on above: Performed By: #### C BC #### [facility] [address] [place] [address] Dr. Karen Connolly Eosinophils/100 WBC (Bld) 1.4 % Normal 0.9-7.0 [facility] Comment on above: Performed By: #### C BC #### [facility] [address] [place] [address] Dr. Karen Connolly Erythrocyte distribution width (RBC) [Ratio] 15.0 % Normal 11.0-15.0 [facility] Comment on above: Performed By: #### C BC #### [facility] [address] [place] [address] Dr. Karen Connolly Hematocrit (Bld) [Volume fraction] 31.7 % Critically low 42.0-54.0 [facility] Comment on above: Performed By: #### C BC #### [facility] [address] [place] [address] Dr. Karen Connolly Hemoglobin (Bld) [Mass/Vol] 10.0 g/dL Critically low 14.0-18.0 [facility] Comment on above: Performed By: #### C BC #### [facility] [address] [place] [address] Dr. Karen Connolly IG # 0.02 10e3/ul Normal 0.00-0.03 [facility] Comment on above: Performed By: #### C BC #### [facility] [address] [place] [address] Dr. Karen Connolly IG % 0.2 % Normal 0.0-0.5 [facility] Comment on above: Performed By: #### C BC #### [facility] [address] [place] [address] Dr. Karen Connolly LYMPH # 2.1 103/ul Normal 1.2-3.8 [facility] Comment on above: Performed By: #### C BC #### [facility] [address] [place] [address] Dr. Karen Connolly Lymphocytes/100 WBC (Bld) 26.3 % Normal 20.5-60.0 [facility] Comment on above: Performed By: #### C BC #### [facility] [address] [place] [address] Dr. Karen Connolly MANUAL DIFF REQ NO Normal [facility] Comment on above: Performed By: #### C BC #### [facility] [address] [place] [address] Dr. Karen Connolly MCH (RBC) [Entitic mass] 30.6 pg Normal 25.9-34.0 [facility] Comment on above: Performed By: #### C BC #### [facility] [address] [place], [place] [id number] Dr. Karen Connolly MCHC (RBC) [Mass/Vol] 31.5 g/dL Normal 29.9-35.2 [facility] Comment on above: Performed By: #### C BC #### [facility] [address] [place] [address] Dr. Karen Connolly MCV (RBC) [Entitic vol] 96.9 fL Critically high 80.0-94.0 [facility] Comment on above: Performed By: #### C BC #### [facility] [address] [place] [address] Dr. Karen Connolly MONO # 0.5 103/ul Normal 0.3-0.8 [facility] Comment on above: Performed By: #### C BC #### [facility] [address] [place] [address] Dr. Karen Connolly Monocytes/100 WBC (Bld) 6.6 % Normal 1.7-12.0 [facility] Comment on above: Performed By: #### C BC #### [facility] [address] [place] [address] Dr. Karen Connolly NEUT # 5.2 103/ul Normal 1.4-6.5 [facility] Comment on above: Performed By: #### C BC #### [facility] [address] [place] [address] Dr. Karen Connolly Neutrophils/100 WBC (Bld) 65.1 % Normal 43.0-75.0 [facility] Comment on above: Performed By: #### C BC #### [facility] [address] [place] [address] Dr. Karen Connolly Platelet mean volume (Bld) [Entitic vol] 10.4 fL Normal 9.5-13.5 [facility] Comment on above: Performed By: #### C BC #### [facility] [address] [place] [address] Dr. Kraen Connolly PLT 280 103/ul Normal 150-450 [facility] Comment on above: Performed By: #### C BC #### [facility] [address] [place] [address] Dr. Karen Connolly RBC 3.27 106/ul Critically low 4.70-6.10 [facility] Comment on above: Performed By: #### C BC #### [facility] [address] [place] [address] Dr. Karen Connolly WBC 8.0 103/ul Normal 4.0-11.0 [facility] Comment on above: Performed By: #### C BC #### [facility] [address] [place] [address] Dr. Karen Connolly CBC AUTO DIFFon 03-04-2021 BASO # 0.0 103/ul Normal 0.0-0.1 [facility] Comment on above: Performed By: #### C BC #### [facility] [address] [place] [address] Dr. Karen Connolly Basophils/100 WBC (Bld) 0.4 % Normal 0.2-2.0 [facility] Comment on above: Performed By: #### C BC #### [facility] [address] [place] [address] Dr. Karen Connolly EO # 0.1 103/ul Normal 0.0-0.7 [facility] Comment on above: Performed By: #### C BC #### [facility] [address] [place] [address] Dr. Karen Connolly Eosinophils/100 WBC (Bld) 1.2 % Normal 0.9-7.0 [facility] Comment on above: Performed By: #### C BC #### [facility] [address] [place] [address] Dr. Karen Connolly Erythrocyte distribution width (RBC) [Ratio] 15.4 % Critically high 11.0-15.0 [facility] Comment on above: Performed By: #### C BC #### [facility] [address] [place] [address] Dr. Karen Connolly Hematocrit (Bld) [Volume fraction] 29.7 % Critically low 42.0-54.0 [facility] Comment on above: Performed By: #### C BC #### [facility] [address] [place] [address] Dr. Karen Connolly Hemoglobin (Bld) [Mass/Vol] 9.3 g/dL Critically low 14.0-18.0 [facility] Comment on above: Performed By: #### C BC #### [facility] [address] [place] [address] Dr. Karen Connolly IG # 0.01 10e3/ul Normal 0.00-0.03 [facility] Comment on above: Performed By: #### C BC #### [facility] [address] [place] [address] Dr. Karen Connolly IG % 0.2 % Normal 0.0-0.5 [facility] Comment on above: Performed By: #### C BC #### [facility] [address] [place] [address] Dr. Karen Connolly LYMPH # 1.4 103/ul Normal 1.2-3.8 [facility] Comment on above: Performed By: #### C BC #### [facility] [address] [place] [address] Dr. Karen Connolly Lymphocytes/100 WBC (Bld) 24.7 % Normal 20.5-60.0 [facility] Comment on above: Performed By: #### C BC #### [facility] [address] [place] [address] Dr. Karen Connolly MANUAL DIFF REQ NO Normal [facility] Comment on above: Performed By: #### C BC #### [facility] [address] [place] [address] Dr. Karen Connolly MCH (RBC) [Entitic mass] 30.1 pg Normal 25.9-34.0 [facility] Comment on above: Performed By: #### C BC #### [facility] [address] [place] [address] Dr. Karen Connolly MCHC (RBC) [Mass/Vol] 31.3 g/dL Normal 29.9-35.2 [facility] Comment on above: Performed By: #### C BC #### [facility] [address] [place] [address] Dr. Karen Connolly MCV (RBC) [Entitic vol] 96.1 fL Critically high 80.0-94.0 [facility] Comment on above: Performed By: #### C BC #### [facility] [address] [place] [address] Dr. Karen Connolly MONO # 0.6 103/ul Normal 0.3-0.8 [facility] Comment on above: Performed By: #### C BC #### [facility] [address] [place] [address] Dr. Karen Connolly Monocytes/100 WBC (Bld) 10.6 % Normal 1.7-12.0 [facility] Comment on above: Performed By: #### C BC #### [facility] [address] [place] [address] Dr. Karen Connolly NEUT # 3.6 103/ul Normal 1.4-6.5 [facility] Comment on above: Performed By: #### C BC #### [facility] [address] [place] [address] Dr. Karen Connolly Neutrophils/100 WBC (Bld) 62.9 % Normal 43.0-75.0 [facility] Comment on above: Performed By: #### C BC #### [facility] [address] [place] [address] Dr. Karen Connolly Platelet mean volume (Bld) [Entitic vol] 10.0 fL Normal 9.5-13.5 [facility] Comment on above: Performed By: #### C BC #### [facility] [address] [place] [address] Dr. Karen Connolly PLT 258 103/ul Normal 150-450 [facility] Comment on above: Performed By: #### C BC #### [facility] [address] [place], [place] [id number] Dr. Karen Connolly RBC 3.09 106/ul Critically low 4.70-6.10 [facility] Comment on above: Performed By: #### C BC #### [facility] [address] [place] [address] Dr. Karen Connolly WBC 5.7 103/ul Normal 4.0-11.0 [facility] Comment on above: Performed By: #### C BC #### [facility] [address] [place] [address] Dr. Karen Connolly CBC AUTO DIFFon 02-25-2021 BASO # 0.1 103/ul Normal 0.0-0.1 [facility] Comment on above: Performed By: #### C BC #### [facility] [address] [place] [address] Dr. Karen Connolly Basophils/100 WBC (Bld) 0.8 % Normal 0.2-2.0 [facility] Comment on above: Performed By: #### C BC #### [facility] [address] [place] [address] Dr. Karen Connolly EO # 0.9 103/ul Critically high 0.0-0.7 [facility] Comment on above: Performed By: #### C BC #### [facility] [address] [place] [address] Dr. Karen Connolly Eosinophils/100 WBC (Bld) 9.7 % Critically high 0.9-7.0 [facility] Comment on above: Performed By: #### C BC #### [facility] [address] [place] [address] Dr. Karen Connolly Erythrocyte distribution width (RBC) [Ratio] 15.1 % Critically high 11.0-15.0 [facility] Comment on above: Performed By: #### C BC #### [facility] [address] [place] [address] Dr. Karen Connolly Hematocrit (Bld) [Volume fraction] 29.3 % Critically low 42.0-54.0 [facility] Comment on above: Performed By: #### C BC #### [facility] [address] [place] [address] Dr. Karen Connolly Hemoglobin (Bld) [Mass/Vol] 9.3 g/dL Critically low 14.0-18.0 [facility] Comment on above: Performed By: #### C BC #### [facility] [address] [place] [address] Dr. Karen Connolly IG # 0.02 10e3/ul Normal 0.00-0.03 [facility] Comment on above: Performed By: #### C BC #### [facility] [address] [place] [address] Dr. Karen Connolly IG % 0.2 % Normal 0.0-0.5 [facility] Comment on above: Performed By: #### C BC #### [facility] [address] [place] [address] Dr. Karen Connolly LYMPH # 2.2 103/ul Normal 1.2-3.8 [facility] Comment on above: Performed By: #### C BC #### [facility] [address] [place] [address] Dr. Karen Connolly Lymphocytes/100 WBC (Bld) 24.3 % Normal 20.5-60.0 [facility] Comment on above: Performed By: #### C BC #### [facility] [address] [place] [address] Dr. Karen Connolly MANUAL DIFF REQ NO Normal [facility] Comment on above: Performed By: #### C BC #### [facility] [address] [place] [address] Dr. Karen Connolly MCH (RBC) [Entitic mass] 30.7 pg Normal 25.9-34.0 [facility] Comment on above: Performed By: #### C BC #### [facility] [address] [place] [address] Dr. Karen Connolly MCHC (RBC) [Mass/Vol] 31.7 g/dL Normal 29.9-35.2 [facility] Comment on above: Performed By: #### C BC #### [facility] [address] [place] [address] Dr. Karen Connolly MCV (RBC) [Entitic vol] 96.7 fL Critically high 80.0-94.0 [facility] Comment on above: Performed By: #### C BC #### [facility] [address] [place] [address] Dr. Karen Connolly MONO # 0.6 103/ul Normal 0.3-0.8 [facility] Comment on above: Performed By: #### C BC #### [facility] [address] [address] [address] Karen Connolly Monocytes/100 WBC (Bld) 6.9 % Normal 1.7-12.0 [facility] Comment on above: Performed By: #### C BC #### [facility] [address] [address] [address] Karen Connolly NEUT # 5.3 103/ul Normal 1.4-6.5 [facility] Comment on above: Performed By: #### C BC #### [facility] [address] [address] [address] Karen Connolly Neutrophils/100 WBC (Bld) 58.1 % Normal 43.0-75.0 [facility] Comment on above: Performed By: #### C BC #### [facility] [address] [place] [address] Dr. Karen Connolly Platelet mean volume (Bld) [Entitic vol] 9.6 fL Normal 9.5-13.5 [facility] Comment on above: Performed By: #### C BC #### [facility] [address] [address] [address] Karen Connolly PLT 317 103/ul Normal 150-450 [facility] Comment on above: Performed By: #### C BC #### [facility] [address] [address] [address] Karen Connolly RBC 3.03 106/ul Critically low 4.70-6.10 [facility] Comment on above: Performed By: #### C BC #### [facility] [address] [address] [address] Karen Connolly WBC 9.0 103/ul Normal 4.0-11.0 [facility] Comment on above: Performed By: #### C BC #### [facility] [address] [place] [address] Dr. Karen Connolly Ambulatory Clinical Summaryo n 08-17-2020 Ambulatory Clinical Summary {[id number] [facility] Patient Educationon 08-18-19 Patient Education Benign Prostatic Hyperplasia You have [...] Document Reviewed: 01/11/2008 ExitCare? Patient Information ?2013 [employer] [facility] Urology Office/Clinic Noteon 08-17-2020 Urology Office/Clinic Note [...] Follow-up With When Contact Information GERI GODWIN, [address] [phone]- [phone] Additional Instructions: [email or web address] Patient Education Benign Prostatic Hyperplasia Eufemia Pagan , personally scribed for Dr. Nevarez on [...] Protein Urine Dipstick: Negative (08/17/20 14:35:00) Specific [place] Urine Dipstick: 1.025 (08/17/20 14:35:00) Urine Appearan (more content not included)... [facility] Comment on above: Result Comment: Elec tronically Signed By: Billy NEVAREZ MD\.br\Date and Time Signed: 08/17/20 15:19 EDT\.br\Electronically Co-Signed By: Eufemia Gomes MA\.br\Date and Time Co-Signed: 08/17/20 15:18 EDT Lab Reportson 05-06-2020 Lab Reports [id number] [facility] CBC Auto Differentialon 03-23 Basophils (Bld) [#/Vol] 0.04 10*3/uL [facility] [employer] [place] Basophils/100 WBC (Bld) 1 % 0 - 2 % [facility] [employer] [place] Differential Type NOT REPORTED [facility] [place] Eosinophils (Bld) [#/Vol] 0.05 10*3/uL [place] Eosinophils/100 WBC (Bld) 1 % 1 - 4 % [place] Erythrocyte distribution width (RBC) [Ratio] 19.1 % High 11.8 - 14.4 % [place] Hematocrit (Bld) [Volume fraction] 25.6 % Low 40.7 - 50.3 % [place] Hemoglobin (Bld) [Mass/Vol] 7.7 g/dL Low 13 - 17 g/dL [place] Immature granulocytes (Bld) [#/Vol] 0.05 10*3/uL [place] Immature granulocytes (Bld) [#/Vol] 1 % High 0 [place] Lymphocytes (Bld) [#/Vol] 1.97 10*3/uL [place] Lymphocytes/100 WBC (Bld) 29 % 24 - 43 % [place] MCH (RBC) [Entitic mass] 26.7 pg 25.2 - 33.5 pg [place] MCHC (RBC) [Mass/Vol] 30.1 g/dL 28.4 - 34.8 g/dL [place] MCV (RBC) [Entitic vol] 88.9 fL 82.6 - 102.9 fL [place] Monocytes (Bld) [#/Vol] 0.56 10*3/uL [place] Monocytes/100 WBC (Bld) 8 % 3 - 12 % [place] Platelet mean volume (Bld) [Entitic vol] 8.6 fL 8.1 - 13.5 fL [place] Platelets (Bld) [#/Vol] 474 10*3/uL High [place] RBC (Bld) [#/Vol] 2.88 10*6/uL Low 4.21 - 5.7 7 m/uL [place] Segmented neutrophils/100 WBC (Bld) 60 % 36 - 65 % [place] Segs Absolute 4.21 [place] WBC (Bld) [#/Vol] 0.0 10*3/uL 0.0 per 10 0 WBC [place] WBC (Bld) [#/Vol] 6.9 10*3/uL [place] CBC with Diffon 04-15-2020 Abs. Basophil 0.04 k/uL Normal 0.00-0.20 [facility] Comment on above: Performed By: #### C P, CDP #### [facility] [address] [place] [address], [place] [address] Advertising Editor: Farhad Turner MD Abs.Imm.Granulocyte 0.05 k/uL Normal 0.00-0.30 [facility] Comment on above: Performed By: #### C P, CDP #### [address] [place] [address] Advertising Editor: Farhad Turner MD Abs.Neutrophil (Seg) 4.21 k/uL Normal 1.50-8.10 [facility] Comment on above: Performed By: #### C P, CDP #### [address], [place] [address] Advertising Editor: Farhad Turner MD Auto Diff Performed NOT REPORTED Normal [facility] Comment on above: Performed By: #### C P, CDP #### [address] [place] [address] Advertising Editor: Farhad Turner MD Basophils/100 WBC (Bld) 1 % Normal 0-2 [facility] Comment on above: Performed By: #### C P, CDP #### [facility] [address], [place] [address] Advertising Editor: Farhad Turner MD Eosinophils (Bld) [#/Vol] 0.05 10*3/uL Normal 0.00-0.44 [facility] Comment on above: Performed By: #### C P, CDP #### [facility] [address], [facility] Advertising Editor: Farhad Turner MD Eosinophils/100 WBC (Bld) 1 % Normal 1-4 [facility] Comment on above: Performed By: #### C P, CDP #### [facility] [address], [facility]83 Advertising Editor: Farhad Turner MD Erythrocyte distribution width (RBC) [Ratio] 19.1 % High 11.8-14.4 [facility] Comment on above: Performed By: #### C P, CDP #### [facility] [address], [place] [address] Advertising Editor: Farhad Turnre MD Hematocrit (Bld) [Volume fraction] 25.6 % Low 40.7-50.3 [facility] Comment on above: Performed By: #### C P, CDP #### [facility] [address], [facility]83 Advertising Editor: Farhad Turner MD Hemoglobin (Bld) [Mass/Vol] 7.7 g/dL Low 13.0-17.0 [facility] Comment on above: Performed By: #### C P, CDP #### [facility] [address], [place] [address] Advertising Editor: Farhad Turner MD Immature granulocytes (Bld) [#/Vol] 1 % High 0 [facility] Comment on above: Performed By: #### C P, CDP #### [facility] [address], [facility] Advertising Editor: Farhad Turner MD Lymphocytes (Bld) [#/Vol] 1.97 10*3/uL Normal 1.10-3.70 [facility] Comment on above: Performed By: #### C P, CDP #### [facility] [address], [place] [id number] Advertising Editor: Farhad Turner MD Lymphocytes/100 WBC (Bld) 29 % Normal 24-43 [facility] Comment on above: Performed By: #### C P, CDP #### [facility] [address], [facility] Advertising Editor: Farhad Turner MD MCH (RBC) [Entitic mass] 26.7 pg Normal 25.2-33.5 [facility] Comment on above: Performed By: #### C P, CDP #### [facility] [address], [place] [address] Advertising Editor: Farhad Turner MD MCHC (RBC) [Mass/Vol] 30.1 g/dL Normal 28.4-34.8 [facility] Comment on above: Performed By: #### C P, CDP #### [address], [place] [address] Advertising Editor: Farhad Turner MD MCV (RBC) [Entitic vol] 88.9 fL Normal 82.6-102.9 [facility] Comment on above: Performed By: #### C P, CDP #### [address], [facility]83 Advertising Editor: Farhad Turner MD Monocytes (Bld) [#/Vol] 0.56 10*3/uL Normal 0.10-1.20 [facility] Comment on above: Performed By: #### C P, CDP #### [address], [place] [address] Advertising Editor: Farhad Turner MD Monocytes/100 WBC (Bld) 8 % Normal 3-12 [facility] Comment on above: Performed By: #### C P, CDP #### [facility] [address], [place] [address] Advertising Editor: Farhad Turner MD Neutrophil (Seg) 60 % Normal 36-65 [facility] Comment on above: Performed By: #### C P, CDP #### [facility] [address], [facility]83 Advertising Editor: Farhad Turner MD NRBC Automated 0.0 per 100 WBC Normal 0.0 [facility] Comment on above: Performed By: #### C P, CDP #### [facility] [address] [place] [address] Advertising Editor: Farhad Turner MD Platelet mean volume (Bld) [Entitic vol] 8.6 fL Normal 8.1-13.5 [facility] Comment on above: Performed By: #### C P, CDP #### [facility] [address] [place], [place] [id number] Advertising Editor: Farhad Turner MD Platelets (Bld) [#/Vol] NOT REPORTED Normal [facility] [place], [place] Comment on above: Performed By: #### C P, CDP #### [address] [place] [address] Advertising Editor: Farhad Turner MD Platelets (Bld) [#/Vol] 474 10*3/uL High 138-453 [facility] Comment on above: Performed By: #### C P, CDP #### [facility] [address] [place], [place] [id number] Advertising Editor: Farhad Turner MD RBC (Bld) [#/Vol] 2.88 10*6/uL Low 4.21-5.77 [facility] Comment on above: Performed By: #### C P, CDP #### [facility] [address] [place] [address] Advertising Editor: Farhad Turner MD RBC morphology finding Nom (Bld) NOT REPORTED Normal [facility] [place], [place] Comment on above: Performed By: #### C P, CDP #### [facility] [address] [place] [address] Advertising Editor: Farhad Turner MD WBC (Bld) [#/Vol] 6.9 10*3/uL Normal 3.5-11.3 [facility] Comment on above: Performed By: #### C P, CDP #### [facility] [address], [place] [id number] Advertising Editor: Farhad Turner MD WBC Morphology NOT REPORTED Normal [place], [place] Comment on above: Performed By: #### C P, CDP #### [facility] [address], [place] [id number] Advertising Editor: Farhad Turner MD Comp Metabolic Profon 2019 (cont.) Normal [facility] Comment on above: Result Comment: Aver age GFR for 60-69 years old: 85 mL/min/1.73sq m Chronic Kidney Disease: <60 mL/min/1.73sq m Kidney failure: <15 mL/min/1.73sq m eGFR calculated using average adult body mass. Additional eGFR calculator available at: http://www.[employer]/multiple_crcl_2011.htm Performed By: #### C P, CDP #### [facility] [address] [address] Advertising Editor: Farhad Turner MD Albumin [Mass/Vol] 2.0 g/dL Low 3.5-5.2 [facility] Comment on above: Performed By: #### C P, CDP #### [facility] [address], [place] [id number] Advertising Editor: Farhad Turner MD Albumin/Globulin [Mass ratio] 0.5 {ratio} Low 1.0-2.5 [facility] Comment on above: Performed By: #### C P, CDP #### [facility] [address], [place] [address] Advertising Editor: Farhad Turner MD Alkaline Phos 74 U/L Normal 40-129 [facility] Comment on above: Performed By: #### C P, CDP #### [facility] [address], [place] [address] Advertising Editor: Farhad Turner MD ALT [Catalytic activity/Vol] 6 U/L Normal 5-41 [facility] Comment on above: Performed By: #### C P, CDP #### [facility] [address], [place] [id number] Advertising Editor: Farhad Turner MD Anion gap [Moles/Vol] 5 mmol/L Low 9-17 [facility] Comment on above: Performed By: #### C P, CDP #### [facility] [address] [address] Advertising Editor: Farhad Turner MD AST [Catalytic activity/Vol] 12 U/L Normal <40 [facility] Comment on above: Performed By: #### C P, CDP #### [facility] [address], [place] [id number] Advertising Editor: Farhad Turner MD Bilirubin Ql (U) 0.32 mg/dL Normal 0.3-1.2 [facility] Comment on above: Performed By: #### C P, CDP #### [facility] [address], [place] [id number] Advertising Editor: Farhad Turner MD BUN/CRE Ratio 21 High 9-20 [facility] Comment on above: Performed By: #### C P, CDP #### [facility] [address], [place] [address] Advertising Editor: Farhad Turner MD Calcium [Mass/Vol] 9.4 mg/dL Normal 8.6-10.4 [facility] Comment on above: Performed By: #### C P, CDP #### [facility] [address] [place], [place] [id number] Advertising Editor: Farhad Turner MD Chloride [Moles/Vol] 101 mmol/L Normal 98-107 [facility] Comment on above: Performed By: #### C P, CDP #### [facility] [address] [place], [place] [id number] Advertising Editor: Farhad Turner MD CO2 [Moles/Vol] 30 mmol/L Normal 20-31 [facility] Comment on above: Performed By: #### C P, CDP #### [facility] [address] [place], [place] [id number] Advertising Editor: Farhad Turner MD Creatinine [Mass/Vol] 0.28 mg/dL Low 0.70-1.20 [facility] Comment on above: Performed By: #### C P, CDP #### [facility] [address] [place], [place] [id number] Advertising Editor: Farhad Turner MD GFR, Amer >60 Normal >60 [facility] Comment on above: Performed By: #### C P, CDP #### [facility] [address] [place], [place] [id number] Advertising Editor: Farhad Turner MD GFR,non Amer >60 Normal >60 [facility] Comment on above: Performed By: #### C P, CDP #### [facility] [address] [place], [place] [id number] Advertising Editor: Farhad Turner MD Glucose [Mass/Vol] 120 mg/dL High 70-99 [facility] Comment on above: Performed By: #### C P, CDP #### [facility] [address] [place], [place] [id number] Advertising Editor: Farhad Turner MD Potassium [Moles/Vol] 3.3 mmol/L Low 3.7-5.3 [facility] Comment on above: Performed By: #### C P, CDP #### [facility] [address] [place] [address] Advertising Editor: Farhad Turner MD Protein [Mass/Vol] 5.9 g/dL Low 6.4-8.3 [facility] Comment on above: Performed By: #### C P, CDP #### [facility] [address] [place] [address] Advertising Editor: Farhad Turner MD Sodium [Moles/Vol] 136 mmol/L Normal 135-144 [facility] Comment on above: Performed By: #### C P, CDP #### [facility] [address] [place] [address] Advertising Editor: Farhad Turner MD Staging: Normal [facility] Comment on above: Result Comment: Stag e 1: Some kidney damage normal GFR Stage 2: Mild kidney damage GFR 60-89 Stage 3: Moderate kidney damage GFR 30-59 Stage 4: Severe kidney damage GFR 15-29 Stage 5: Severe kidney damage GFR <15 ESRD - chronic treatment by dialysis or transplant Performed By: #### C P, CDP #### [facility] [address] [place] [address] Advertising Editor: Farhad Turner MD Urea nitrogen [Mass/Vol] 6 mg/dL Low 8-23 [facility] Comment on above: Performed By: #### C P, CDP #### [facility] [address] [place] [address] Advertising Editor: Farhad Turner MD [facility] 04-15-2020 Albumin [Mass/Vol] 2 g/dL Low 3.5 - 5.2 g/dL [place] Albumin/Globulin [Mass ratio] 0.5 {ratio} Low [place] ALP [Catalytic activity/Vol] 74 U/L 40 - 129 U/L [place] ALT [Catalytic activity/Vol] 6 U/L 5 - 41 U/L [place] Anion gap [Moles/Vol] 5 mmol/L Low 9 - 17 mmol/L [place] AST [Catalytic activity/Vol] 12 U/L <40 [place] Bilirubin Ql (U) 0.32 mg/dL 0.3 - 1.2 mg/dL [place] Bun/Cre Ratio 21 High [place] Calcium [Mass/Vol] 9.4 mg/dL 8.6 - 10. 4 mg/dL [place] Chloride [Moles/Vol] 101 mmol/L 98 - 10 7 mmol/L [place] CO2 [Moles/Vol] 30 mmol/L 20 - 31 mmol/L [place] Creatinine [Mass/Vol] 0.28 mg/dL Low 0.7 - 1.2 mg/dL [place] GFR >60 >60 mL/min [place] GFR Non- >60 >60 mL/min [place] Glucose [Mass/Vol] 120 mg/dL High 70 - 99 mg/dL [place] Potassium [Moles/Vol] 3.3 mmol/L Low 3.7 - 5.3 mmol/L [place] Protein [Mass/Vol] 5.9 g/dL Low 6.4 - 8.3 g/dL [place] Sodium [Moles/Vol] 136 mmol/L 135 - 144 mmol/L [place] Urea nitrogen [Mass/Vol] 6 mg/dL Low 8 - 23 mg/dL [place] Metabolic Panelon 04-15-2020 GFR/1.73 sq M predicted among non-blacks MDRD (S/P/Bld) [Vol rate/Area] [place] Comment on above: Stage 1: Some [...] body mass. Additional eGFR calculator available at: http://www.[employer]/multiple_crcl_2012.htm Otheron 04-15-2020 Interpretation and review of laboratory results Abnormal [place] Transfer Inon 04-13-2020 Transfer In [id number]:12 [id number] Normal [facility] CBCon 03-16-2020 Erythrocyte distribution width (RBC) [Ratio] 17.3 % High 11.8 - 14.4 % [place] Hematocrit (Bld) [Volume fraction] 30.0 % Low 40.7 - 50.3 % [place] Hemoglobin (Bld) [Mass/Vol] 8.7 g/dL Low 13 - 17 g/dL [place] MCH (RBC) [Entitic mass] 25.1 pg Low 25.2 - 33.5 pg [place] MCHC (RBC) [Mass/Vol] 29.0 g/dL 28.4 - 34.8 g/dL [place] MCV (RBC) [Entitic vol] 86.5 fL 82.6 - 102.9 fL [place] Platelet mean volume (Bld) [Entitic vol] 8.8 fL 8.1 - 13.5 fL [place] Platelets (Bld) [#/Vol] 471 10*3/uL [place] RBC (Bld) [#/Vol] 3.47 10*6/uL Low 4.21 - 5.7 7 m/uL [place] WBC (Bld) [#/Vol] 14.6 10*3/uL [place] WBC (Bld) [#/Vol] 0.0 10*3/uL 0.0 per 10 0 WBC [place] Comprehensive Metabolic Pane franko 03-16-2020 Albumin [Mass/Vol] 2.1 g/dL Low 3.5 - 5.2 g/dL [place] Albumin/Globulin [Mass ratio] 0.5 {ratio} Low [place] ALP [Catalytic activity/Vol] 54 U/L 40 - 129 U/L [place] ALT [Catalytic activity/Vol] U/L Low 5 - 41 U/L [place] Anion gap [Moles/Vol] 9 mmol/L 9 - 17 mmol/L [place] AST [Catalytic activity/Vol] 9 U/L <40 [place] Bilirubin Ql (U) 0.18 mg/dL Low 0.3 - 1.2 mg/dL [place] Bun/Cre Ratio 18 [place] Calcium [Mass/Vol] 9.7 mg/dL 8.6 - 10. 4 mg/dL [place] Chloride [Moles/Vol] 99 mmol/L 98 - 10 7 mmol/L [place] CO2 [Moles/Vol] 27 mmol/L 20 - 31 mmol/L [place] Creatinine [Mass/Vol] 0.39 mg/dL Low 0.7 - 1.2 mg/dL [place] GFR >60 >60 mL/min [place] GFR Non- >60 >60 mL/min [place] Glucose [Mass/Vol] 98 mg/dL 70 - 99 mg/dL [place] Potassium [Moles/Vol] 3.6 mmol/L Low 3.7 - 5.3 mmol/L [place] Protein [Mass/Vol] 6.3 g/dL Low 6.4 - 8.3 g/dL [place] Sodium [Moles/Vol] 135 mmol/L 135 - 144 mmol/L [place] Urea nitrogen [Mass/Vol] 7 mg/dL Low 8 - 23 mg/dL [place] Metabolic Panelon 03-16-2020 GFR/1.73 sq M predicted among non-blacks MDRD (S/P/Bld) [Vol rate/Area] [place] Comment on above: Average GFR for 60-6 9 years old: 85 mL/min/1.73sq m Chronic Kidney Disease: <60 mL/min/1.73sq m Kidney failure: <15 mL/min/1.73sq m eGFR calculated using average adult body mass. Additional eGFR calculator available at: http://www.[employer]/multiple_crcl_2012.htm Stage 1: Some kidney damage normal GFR Stage 2: Mild kidney damage GFR 60-89 Stage 3: Moderate kidney damage GFR 30-59 Stage 4: Severe kidney damage GFR 15-29 Stage 5: Severe kidney damage GFR <15 ESRD - chronic treatment by dialysis or transplant Otheron 03-16-2020 Interpretation and review of laboratory results Abnormal [facility] Transfer Inon 03-13-2020 Transfer In [id number]:12 7 Normal [facility] Lab Reportson 03-06-2020 Lab Reports [id number]:12 7 Normal [facility] Reminderson 03-06-2020 Reminders - From: Rain Cade To: EU - Clinical; Sent: 03/02/2020 10:47:20 EDT Show up: 03/04/2020 10:47:00 EDT Subject: Urine C&S Due Date/Time: 03/06/2020 10:47:00 EDT Reminder/Recall Urine C&S done [facility] Please review Urine C&S and call pt with results.LG From: Rain Cade (EU - Clinical) To: GERI GODWIN, Billy Jordan; Sent: 03/06/2020 08:48:22 EDT Show up: 03/06/2020 08:48:00 EDT Subject: RE: Urine C&S Dr. Nevarez reviewed. levaquin 500mg qd #14 proposed. pts was notified.LG Normal [facility] SURGICAL PATHOLOGYon 020 SURGICAL PATHOLOGY ADDENDUM PRESENT Specimen #: [id number] Submitting Physician: JASON MUÑOZ M.D. FINAL DIAGNOSIS [facility], [place], [place]; [phone] (11/13/2019) Duodenum, postbulbar, biopsy (A1, stains) - [...] to contact the GI Consultation Service at [phone] with questions or if additional follow up information becomes available. This case was reviewed in conjunction with the GI pathology fellow, Rajan Bain M.D., Ph.D. IG/HYL/lh/11-19-2019 Walter De Luna M.D., Ph.D. (Electronic Signature) SPECIMEN SUBMITTED A: 6 SLIDES [id number] ADDENDUM Date Ordered: 11/19/2019 Date Reported: 11/19/2019 This case has also been reviewed in consultation with Dr. Halie Cartwright, who concurs with the diagnosis. Addendum Pathologist: Walter De Luna M.D., Ph.D. Electronic Signature CLINICAL DATA Abdominal pain. Patient ID #: Date of Report: 11/19/2019 Date of Procedure: 11/18/2019 Date of Receipt: 11/18/2019 Submitted by: JASON MUÑOZ M.D. Location: Diagnostic interpretation performed at [facility], [address] [place] [address]. CLIA Number: [id number] Normal [facility] Comment on above: Performed By: #### S #### See report for performing lab information. Social History Date Type Detail Facility Start: 09-29-2022 End: 11-10-2022 Tobacco use panel [facility] Start: 02-08-2022 End: 04-20-2022 Exposure to SARS-CoV-2 (event) Not sure [facility] Start: 01-13-2021 Gender identity Identifies as male gender (finding) [facility] Start: 05-08-2020 End: 09-29-2022 Cigarettes smoked current (pack per day) - Reported 1 [facility] Start: 05-08-2020 End: 03-09-2022 Tobacco use and exposure Smokeless tobacco non-user [facility] Start: 03-24-2020 History SDOH Financial 5 [facility] Start: 03-24-2020 History SDOH Food Worry 1 [facility] Start: 03-24-2020 History SDOH Transpo rt Med 2 [facility] Start: 03-18-2020 End: 03-09-2022 Tobacco smoking status NHIS Former smoker [facility] Start: 03-18-2020 End: 10-11-2023 Alcohol intake Ex-drinker (finding) Chunyu, K Y Start: 03-09-2020 Tobacco smoking stat us UTIS Unknown if ever smoked [employer] [place], [place] Start: 03-18-1977 End: 11-20-2019 History of tobacco use Current smoker Ifrah [facility] CARLO JEFFRIES Start: [birth year]-18-1977 End: 11-20-2019 History of tobacco use Cigarette Smoker Ifrah [facility] CARLO JEFFRIES Start: 1950 [facility] CARLO JEFFRIES Start: 1950 Sex Assigned At Male C [facility] History of tobacco use Passive smoker [facility] How hard is it for y ou to pay for the very basics like food, housing, medical care, and heating Not hard at all [facility] (I/We) worried frederic er (my/our) food would run out before (I/we) got money to buy more. Never true [facility] Vital Signs Date Time Vital Sign Value Performing Clinician Facility 10-13-2023 11:35-0400 Body temperature 97.59 [degF] [employer] Work Phone: [facility] 10-13-2023 11:35-0400 Diastolic blood pressure 71 mm[Hg] Chair [employer] Work Phone: [facility] 10-13-2023 11:35-0400 Heart rate 83 /min [employer] Phone: [facility] 10-13-2023 11:35-0400 Respiratory rate 16 /min [employer] Phone: [facility] 10-13-2023 11:35-0400 SaO2% (BldA) [Mass fraction] 100 % [employer] Work Phone: [facility] 10-13-2023 11:35-0400 Systolic blood pressure 107 mm[Hg] Chair [employer] Work Phone: [facility] 10-11-2023 10:02-0400 Diastolic blood pressure 67 mm[Hg] Chair [employer] Work Phone: [facility] Comment on above: Rechecked in tx room 10-11-2023 10:02-0400 Systolic blood pressure 100 mm[Hg] Chair [employer] Work Phone: [facility] Comment on above: Rechecked in tx room 10-11-2023 09:27-0400 Body height 169.7 cm Greta Rashard PA-C Work Phone: [facility] 10-11-2023 09:27-0400 Body mass index (BMI) [Ratio] 24.48 kg/m2 Greta Rashard PA-C Work Phone: [facility] 10-11-2023 09:27-0400 Body temperature 98.01 [degF] Greta Rashard PA-C Work Phone: [facility] 10-11-2023 09:27-0400 Body weight 70.5 kg Greta Rashard PA-C Work Phone: [facility] 10-11-2023 09:27-0400 Diastolic blood pressure 56 mm[Hg] Greta Rashard PA-C Work Phone: [facility] 10-11-2023 09:27-0400 Heart rate 87 /min Greta Rashard PA-C Work Phone: [facility] 10-11-2023 09:27-0400 Respiratory rate 16 /min Greta Rashard PA-C Work Phone: [facility] 10-11-2023 09:27-0400 SaO2% (BldA) [Mass fraction] 100 % Greta Rashard PA-C Work Phone: [facility] 10-11-2023 09:27-0400 Systolic blood pressure 85 mm[Hg] Greta Rashard PA-C Work Phone: [facility] 10-03-2023 11:15-0400 Body height 169.7 cm Greta Rashard PA-C Work Phone: [facility] 10-03-2023 11:15-0400 Body mass index (BMI) [Ratio] 25.56 kg/m2 Greta Rashard PA-C Work Phone: [facility] 10-03-2023 11:15-0400 Body temperature 97.5 [degF] Greta Rashard PA-C Work Phone: [facility] 10-03-2023 11:15-0400 Body weight 73.6 kg Greta Rashard PA-C Work Phone: [facility] 10-03-2023 11:15-0400 Diastolic blood pressure 53 mm[Hg] Greta Rashard PA-C Work Phone: [facility] 10-03-2023 11:15-0400 Heart rate 81 /min Greta Rashard PA-C Work Phone: [facility] 10-03-2023 11:15-0400 Respiratory rate 16 /min Greta Rashard PA-C Work Phone: [facility] 10-03-2023 11:15-0400 SaO2% (BldA) [Mass fraction] 98 % Greta Rashard PA-C Work Phone: [facility] 10-03-2023 11:15-0400 Systolic blood pressure 83 mm[Hg] Greta Rashard PA-C Work Phone: [facility] 09-15-2023 13:05-0400 Body temperature 97.9 [degF] Chair [employer] Work Phone: [facility] 09-15-2023 13:05-0400 Diastolic blood pressure 68 mm[Hg] Chair Renovo Work Phone: [facility] 09-15-2023 13:05-0400 Heart rate 77 /min Chair Danny Work Phone: [facility] 09-15-2023 13:05-0400 Respiratory rate 18 /min Chair Renovo Work Phone: [facility] 09-15-2023 13:05-0400 SaO2% (BldA) [Mass fraction] 98 % Chair Danny Work Phone: [facility] 09-15-2023 13:05-0400 Systolic blood pressure 114 mm[Hg] Chair Renovo Work Phone: [facility] 09-13-2023 11:29-0400 Body height 169.7 cm Yordy Moncada APRN.MEDICAL STAFF DIRECTOR Work Phone: [facility] 09-13-2023 11:29-0400 Body mass index (BMI) [Ratio] 24.76 kg/m2 Yordy Moncada APRN.MEDICAL STAFF DIRECTOR Work Phone: [facility] 09-13-2023 11:29-0400 Body temperature 97.59 [degF] Yordy Moncada APRN.MEDICAL STAFF DIRECTOR Work Phone: [facility] 09-13-2023 11:29-0400 Body weight 71.3 kg Yordy Moncada APRN.MEDICAL STAFF DIRECTOR Work Phone: [facility] 09-13-2023 11:29-0400 Diastolic blood pressure 63 mm[Hg] Yordy Moncada APRN.MEDICAL STAFF DIRECTOR Work Phone: [facility] 09-13-2023 11:29-0400 Heart rate 75 /min Yordy Moncada APRN.MEDICAL STAFF DIRECTOR Work Phone: [facility] 09-13-2023 11:29-0400 Respiratory rate 16 /min Yordy Moncada APRN.MEDICAL STAFF DIRECTOR Work Phone: [facility] 09-13-2023 11:29-0400 SaO2% (BldA) [Mass fraction] 99 % Yordy Moncada APRN.MEDICAL STAFF DIRECTOR Work Phone: [facility] 09-13-2023 11:29-0400 Systolic blood pressure 106 mm[Hg] Yordy Moncada APRN.MEDICAL STAFF DIRECTOR Work Phone: [facility] 08-23-2023 10:36-0400 Body height 169.7 cm Grace Bess MD Work Phone: [facility] 08-23-2023 10:36-0400 Body temperature 97.59 [degF] Grace Bess MD Work Phone: [facility] 08-23-2023 10:36-0400 Body weight 72.5 kg Grace Bess MD Work Phone: [facility] 08-23-2023 10:36-0400 Diastolic blood pressure 72 mm[Hg] Grace Bess MD Work Phone: [facility] 08-23-2023 10:36-0400 Heart rate 88 /min Grace Bess MD Work Phone: [facility] 08-23-2023 10:36-0400 Respiratory rate 16 /min Grace Bess MD Work Phone: [facility] 08-23-2023 10:36-0400 SaO2% (BldA) [Mass fraction] 98 % Grace Bess MD Work Phone: [facility] 08-23-2023 10:36-0400 Systolic blood pressure 108 mm[Hg] Grace Bess MD Work Phone: [facility] 08-04-2023 12:40-0400 Body temperature 97.5 [degF] Chair Danny Work Phone: [facility] 08-04-2023 12:40-0400 Diastolic blood pressure 64 mm[Hg] Chair Danny Work Phone: [facility] 08-04-2023 12:40-0400 Heart rate 82 /min Chair Renovo Work Phone: [facility] 08-04-2023 12:40-0400 Respiratory rate 16 /min Chair Danny Work Phone: [facility] 08-04-2023 12:40-0400 SaO2% (BldA) [Mass fraction] 98 % Chair Renovo Work Phone: [facility] 08-04-2023 12:40-0400 Systolic blood pressure 95 mm[Hg] Chair Danny Work Phone: [facility] 08-02-2023 10:32-0400 Body height 169.7 cm Grace Bess MD Work Phone: [facility] 08-02-2023 10:32-0400 Body temperature 97.5 [degF] Grace Bess MD Work Phone: [facility] 08-02-2023 10:32-0400 Body weight 71.2 kg Grace Bess MD Work Phone: [facility] 08-02-2023 10:32-0400 Diastolic blood pressure 68 mm[Hg] Grace Bess MD Work Phone: [facility] 08-02-2023 10:32-0400 Heart rate 85 /min Grace Bess MD Work Phone: [facility] 08-02-2023 10:32-0400 Respiratory rate 16 /min Grace Bess MD Work Phone: [facility] 08-02-2023 10:32-0400 SaO2% (BldA) [Mass fraction] 100 % Grace Bess MD Work Phone: [facility] 08-02-2023 10:32-0400 Systolic blood pressure 96 mm[Hg] Grace Bess MD Work Phone: [facility] 07-21-2023 11:57-0500 Body temperature 98.1 [degF] Chair Danny Work Phone: [facility] 07-21-2023 11:57-0500 Diastolic blood pressure 65 mm[Hg] Chair Renovo Work Phone: [facility] 07-21-2023 11:57-0500 Heart rate 78 /min Chair Danny Work Phone: [facility] 07-21-2023 11:57-0500 Respiratory rate 18 /min Chair Renovo Work Phone: [facility] 07-21-2023 11:57-0500 SaO2% (BldA) [Mass fraction] 100 % Chair Renovo Work Phone: [facility] 07-21-2023 11:57-0500 Systolic blood pressure 96 mm[Hg] Chair Danny Work Phone: [facility] 07-19-2023 10:14-0500 Body height 169.7 cm Yordy Moncada APRN.MEDICAL STAFF DIRECTOR Work Phone: [facility] 07-19-2023 10:14-0500 Body temperature 97.59 [degF] Yordy Moncada FOOD SERVICE REPRESENTATIVE.MEDICAL STAFF DIRECTOR Work Phone: [facility] 07-19-2023 10:14-0500 Body weight 71.5 kg Yordy Moncada APRN.MEDICAL STAFF DIRECTOR Work Phone: [facility] 07-19-2023 10:14-0500 Diastolic blood pressure 58 mm[Hg] Yordy Moncada APRN.MEDICAL STAFF DIRECTOR Work Phone: [facility] 07-19-2023 10:14-0500 Heart rate 67 /min Yordy Moncada APRN.MEDICAL STAFF DIRECTOR Work Phone: [facility] 07-19-2023 10:14-0500 Respiratory rate 16 /min Yordy Moncada APRN.MEDICAL STAFF DIRECTOR Work Phone: [facility] 07-19-2023 10:14-0500 SaO2% (BldA) [Mass fraction] 99 % Yordy Moncada APRN.MEDICAL STAFF DIRECTOR Work Phone: [facility] 07-19-2023 10:14-0500 Systolic blood pressure 100 mm[Hg] Yordy Moncada APRN.MEDICAL STAFF DIRECTOR Work Phone: [facility] 07-07-2023 12:40-0500 Body temperature 97.7 [degF] Chair Renovo Work Phone: [facility] 07-07-2023 12:40-0500 Diastolic blood pressure 69 mm[Hg] Chair Danny Work Phone: [facility] 07-07-2023 12:40-0500 Heart rate 75 /min Chair Danny Work Phone: [facility] 07-07-2023 12:40-0500 Respiratory rate 18 /min Chair Danny Work Phone: [facility] 07-07-2023 12:40-0500 SaO2% (BldA) [Mass fraction] 98 % Chair Renovo Work Phone: [facility] 07-07-2023 12:40-0500 Systolic blood pressure 103 mm[Hg] Chair Renovo Work Phone: [facility] 07-05-2023 10:46-0500 Body height 169.7 cm Yordy Moncada APRN.MEDICAL STAFF DIRECTOR Work Phone: [facility] 07-05-2023 10:46-0500 Body temperature 97 [degF] Yordy Moncada APRN.MEDICAL STAFF DIRECTOR Work Phone: [facility] 07-05-2023 10:46-0500 Body weight 72.3 kg Yordy Moncada APRN.MEDICAL STAFF DIRECTOR Work Phone: [facility] 07-05-2023 10:46-0500 Diastolic blood pressure 68 mm[Hg] Yordy Moncada APRN.MEDICAL STAFF DIRECTOR Work Phone: [facility] 07-05-2023 10:46-0500 Heart rate 92 /min Yordy Moncada APRN.MEDICAL STAFF DIRECTOR Work Phone: [facility] 07-05-2023 10:46-0500 Respiratory rate 16 /min Yordy Moncada APRN.MEDICAL STAFF DIRECTOR Work Phone: [facility] 07-05-2023 10:46-0500 SaO2% (BldA) [Mass fraction] 97 % Yordy Moncada APRN.MEDICAL STAFF DIRECTOR Work Phone: [facility] 07-05-2023 10:46-0500 Systolic blood pressure 96 mm[Hg] Yordy Moncada APRN.MEDICAL STAFF DIRECTOR Work Phone: [facility] 06-23-2023 10:28-0500 Body temperature 97.7 [degF] Chair Danny Work Phone: [facility] 06-23-2023 10:28-0500 Diastolic blood pressure 76 mm[Hg] Chair Renovo Work Phone: [facility] 06-23-2023 10:28-0500 Heart rate 83 /min Chair Renovo Work Phone: [facility] 06-23-2023 10:28-0500 Respiratory rate 16 /min Chair Renovo Work Phone: [facility] 06-23-2023 10:28-0500 SaO2% (BldA) [Mass fraction] 100 % Chair Renovo Work Phone: [facility] 06-23-2023 10:28-0500 Systolic blood pressure 117 mm[Hg] Chair Renovo Work Phone: [facility] 05-05-2023 12:59-0500 Body height 171.4 cm Grace Bess MD Work Phone: [facility] 05-05-2023 12:59-0500 Body temperature 97 [degF] Grace Bess MD Work Phone: [facility] 05-05-2023 12:59-0500 Body weight 73.9 kg Grace Bess MD Work Phone: [facility] 05-05-2023 12:59-0500 Diastolic blood pressure 80 mm[Hg] Grace Bess MD Work Phone: [facility] 05-05-2023 12:59-0500 Heart rate 90 /min Grace Bess MD Work Phone: [facility] 05-05-2023 12:59-0500 Respiratory rate 20 /min Grace Bess MD Work Phone: [facility] 05-05-2023 12:59-0500 SaO2% (BldA) [Mass fraction] 100 % Grace Bess MD Work Phone: [facility] 05-05-2023 12:59-0500 Systolic blood pressure 137 mm[Hg] Grace Bess MD Work Phone: [facility] 04-05-2023 13:49-0500 Body height 171.4 cm Yordy Moncada APRN.MEDICAL STAFF DIRECTOR Work Phone: [facility] 04-05-2023 13:49-0500 Body temperature 97.59 [degF] Yordy Moncada FOOD SERVICE REPRESENTATIVE.MEDICAL STAFF DIRECTOR Work Phone: [facility] 04-05-2023 13:49-0500 Body weight 77.84 kg Yordy Moncada FOOD SERVICE REPRESENTATIVE.MEDICAL STAFF DIRECTOR Work Phone: [facility] 04-05-2023 13:49-0500 Diastolic blood pressure 69 mm[Hg] Yordy Moncada FOOD SERVICE REPRESENTATIVE.MEDICAL STAFF DIRECTOR Work Phone: [facility] 04-05-2023 13:49-0500 Heart rate 88 /min Yordy Moncada APRN.MEDICAL STAFF DIRECTOR Work Phone: [facility] 04-05-2023 13:49-0500 Respiratory rate 16 /min Yordy Moncada APRN.MEDICAL STAFF DIRECTOR Work Phone: [facility] 04-05-2023 13:49-0500 SaO2% (BldA) [Mass fraction] 99 % Yordy Moncada FOOD SERVICE REPRESENTATIVE.MEDICAL STAFF DIRECTOR Work Phone: [facility] 04-05-2023 13:49-0500 Systolic blood pressure 100 mm[Hg] Yordy Moncada FOOD SERVICE REPRESENTATIVE.MEDICAL STAFF DIRECTOR Work Phone: [facility] 03-30-2023 13:19-0500 Diastolic blood pressure 67 mm[Hg] Greta Rashard PA-C Work Phone: [facility] 03-30-2023 13:19-0500 Systolic blood pressure 116 mm[Hg] Greta Rashard PA-C Work Phone: [facility] 03-30-2023 13:15-0500 Body height 171.4 cm Greta Rashard PA-C Work Phone: [facility] 03-30-2023 13:15-0500 Body temperature 97.59 [degF] Greta Rashard PA-C Work Phone: [facility] 03-30-2023 13:15-0500 Body weight 77.2 kg Greta Rashard PA-C Work Phone: [facility] 03-30-2023 13:15-0500 Heart rate 90 /min Greta Cardenaser PA-C Work Phone: [facility] 03-30-2023 13:15-0500 Respiratory rate 16 /min Greta Cardenaser PA-C Work Phone: [facility] 03-30-2023 13:15-0500 SaO2% (BldA) [Mass fraction] 99 % Greta Cardenaser PA-C Work Phone: [facility] 03-08-2023 13:32-0400 Body height 171.4 cm Grace Bess MD Work Phone: [facility] 03-08-2023 13:32-0400 Body temperature 97.59 [degF] Grace Bess MD Work Phone: [facility] 03-08-2023 13:32-0400 Body weight 78.02 kg Grace Bess MD Work Phone: [facility] 03-08-2023 13:32-0400 Diastolic blood pressure 71 mm[Hg] Grace Bess MD Work Phone: [facility] 03-08-2023 13:32-0400 Heart rate 90 /min Grace Bess MD Work Phone: [facility] 03-08-2023 13:32-0400 Respiratory rate 16 /min Grace Bess MD Work Phone: [facility] 03-08-2023 13:32-0400 SaO2% (BldA) [Mass fraction] 100 % Grace Bess MD Work Phone: [facility] 03-08-2023 13:32-0400 Systolic blood pressure 104 mm[Hg] Grace Bess MD Work Phone: [facility] 02-08-2023 12:46-0400 Body height 171.4 cm Yordy Moncada APRN.MEDICAL STAFF DIRECTOR Work Phone: [facility] 02-08-2023 12:46-0400 Body temperature 97.5 [degF] Yordy Moncada FOOD SERVICE REPRESENTATIVE.MEDICAL STAFF DIRECTOR Work Phone: [facility] 02-08-2023 12:46-0400 Body weight 81.1 kg Yordy Moncada FOOD SERVICE REPRESENTATIVE.MEDICAL STAFF DIRECTOR Work Phone: [facility] 02-08-2023 12:46-0400 Diastolic blood pressure 63 mm[Hg] Yordy Moncada FOOD SERVICE REPRESENTATIVE.MEDICAL STAFF DIRECTOR Work Phone: [facility] 02-08-2023 12:46-0400 Heart rate 86 /min Yordy Moncaad FOOD SERVICE REPRESENTATIVE.MEDICAL STAFF DIRECTOR Work Phone: [facility] 02-08-2023 12:46-0400 Respiratory rate 16 /min Yordy Moncada FOOD SERVICE REPRESENTATIVE.MEDICAL STAFF DIRECTOR Work Phone: [facility] 02-08-2023 12:46-0400 SaO2% (BldA) [Mass fraction] 100 % Yordy Moncada FOOD SERVICE REPRESENTATIVE.MEDICAL STAFF DIRECTOR Work Phone: [facility] 02-08-2023 12:46-0400 Systolic blood pressure 117 mm[Hg] Yordy Moncada FOOD SERVICE REPRESENTATIVE.MEDICAL STAFF DIRECTOR Work Phone: [facility] 02-01-2023 11:16-0400 Body height 171.4 cm Grace Bess MD Work Phone: [facility] 02-01-2023 11:16-0400 Body temperature 97.3 [degF] Grace Bess MD Work Phone: [facility] 02-01-2023 11:16-0400 Body weight 79.74 kg Grace Bess MD Work Phone: [facility] 02-01-2023 11:16-0400 Diastolic blood pressure 70 mm[Hg] Grace Bess MD Work Phone: [facility] 02-01-2023 11:16-0400 Heart rate 81 /min Grace Bess MD Work Phone: [facility] 02-01-2023 11:16-0400 Respiratory rate 16 /min Grace Bess MD Work Phone: [facility] 02-01-2023 11:16-0400 SaO2% (BldA) [Mass fraction] 99 % Grace Bess MD Work Phone: [facility] 02-01-2023 11:16-0400 Systolic blood pressure 104 mm[Hg] Grace Bess MD Work Phone: [facility] 01-04-2023 13:00-0400 Body height 171.4 cm Grace Bess MD Work Phone: [facility] 01-04-2023 13:00-0400 Body temperature 97.2 [degF] Grace Bess MD Work Phone: [facility] 01-04-2023 13:00-0400 Body weight 82.74 kg Grace Bess MD Work Phone: [facility] 01-04-2023 13:00-0400 Diastolic blood pressure 63 mm[Hg] Grace Bess MD Work Phone: [facility] 01-04-2023 13:00-0400 Heart rate 78 /min Grace Bess MD Work Phone: [facility] 01-04-2023 13:00-0400 Respiratory rate 18 /min Grace Bess MD Work Phone: [facility] 01-04-2023 13:00-0400 SaO2% (BldA) [Mass fraction] 100 % Grace Bess MD Work Phone: [facility] 01-04-2023 13:00-0400 Systolic blood pressure 104 mm[Hg] Grace Bess MD Work Phone: [facility] 12-21-2022 09:40-0400 Body height 171.4 cm Greta Rashard PA-C Work Phone: [facility] 12-21-2022 09:40-0400 Body temperature 97.11 [degF] Greta Rashard PA-C Work Phone: [facility] 12-21-2022 09:40-0400 Body weight 82.64 kg Greta Rashard PA-C Work Phone: [facility] 12-21-2022 09:40-0400 Diastolic blood pressure 68 mm[Hg] Greta Rashard PA-C Work Phone: [facility] 12-21-2022 09:40-0400 Heart rate 94 /min Greta Rashard PA-C Work Phone: [facility] 12-21-2022 09:40-0400 Respiratory rate 20 /min Greta Rashard PA-C Work Phone: [facility] 12-21-2022 09:40-0400 SaO2% (BldA) [Mass fraction] 100 % Gretaskye Cardenaser PA-C Work Phone: [facility] 12-21-2022 09:40-0400 Systolic blood pressure 103 mm[Hg] Greta Rashard PA-C Work Phone: [facility] 12-15-2022 16:25-0400 Diastolic blood pressure 74 mm[Hg] II Giovanni Salinas Work Phone: [facility] 12-15-2022 16:25-0400 Heart rate 67 /min II Giovanni Salinas Work Phone: [facility] 12-15-2022 16:25-0400 Respiratory rate 18 /min II Giovanni Salinas Work Phone: [facility] 12-15-2022 16:25-0400 SaO2% (BldA) [Mass fraction] 100 % II Giovanni Salinas Work Phone: [facility] 12-15-2022 16:25-0400 Systolic blood pressure 105 mm[Hg] II Giovanni Salinas Work Phone: [facility] 12-15-2022 15:19-0400 Body height 170.18 cm II Giovanni Salinas Work Phone: [facility] 12-15-2022 15:19-0400 Body temperature 97.5 [degF] II Giovanni Salinas Work Phone: [facility] 12-15-2022 15:19-0400 Body weight 85.9 kg II Giovanni Salinas Work Phone: [facility] 12-05-2022 11:14-0400 Body height 171.4 cm Greta Rashard PA-C Work Phone: [facility] 12-05-2022 11:14-0400 Body temperature 97 [degF] Greta Rashard PA-C Work Phone: [facility] 12-05-2022 11:14-0400 Body weight 83.55 kg Greta Rashard PA-C Work Phone: [facility] 12-05-2022 11:14-0400 Diastolic blood pressure 51 mm[Hg] Greta Rashard PA-C Work Phone: [facility] 12-05-2022 11:14-0400 Heart rate 97 /min Greta Rashard PA-C Work Phone: [facility] 12-05-2022 11:14-0400 Respiratory rate 16 /min Greta Rashard PA-C Work Phone: [facility] 12-05-2022 11:14-0400 SaO2% (BldA) [Mass fraction] 100 % Greta Rashard PA-C Work Phone: [facility] 12-05-2022 11:14-0400 Systolic blood pressure 97 mm[Hg] Greta Rashard PA-C Work Phone: [facility] 11-30-2022 10:33-0400 Body height 171.4 cm Grace Bess MD Work Phone: [facility] 11-30-2022 10:33-0400 Body temperature 96.69 [degF] Grace Bess MD Work Phone: [facility] 11-30-2022 10:33-0400 Body weight 83.92 kg Grace Bess MD Work Phone: [facility] 11-30-2022 10:33-0400 Diastolic blood pressure 67 mm[Hg] Grace Bess MD Work Phone: [facility] 11-30-2022 10:33-0400 Heart rate 68 /min Grace Bess MD Work Phone: [facility] 11-30-2022 10:33-0400 Respiratory rate 16 /min Grace Bess MD Work Phone: [facility] 11-30-2022 10:33-0400 SaO2% (BldA) [Mass fraction] 98 % Grace Bess MD Work Phone: [facility] 11-30-2022 10:33-0400 Systolic blood pressure 117 mm[Hg] Grace Bess MD Work Phone: [facility] 11-23-2022 13:45-0400 Body height 169.8 cm Greta Rashard PA-C Work Phone: [facility] 11-23-2022 13:45-0400 Body temperature 97.3 [degF] Greta Rashard PA-C Work Phone: [facility] 11-23-2022 13:45-0400 Body weight 83.64 kg Greta Rashard PA-C Work Phone: [facility] 11-23-2022 13:45-0400 Diastolic blood pressure 64 mm[Hg] Greta Rashard PA-C Work Phone: [facility] 11-23-2022 13:45-0400 Heart rate 92 /min Greta Rashard PA-C Work Phone: [facility] 07-05-2023 13:45-0400 Respiratory rate 16 /min Greta Cardenaser PA-C Work Phone: [facility] 11-23-2022 13:45-0400 SaO2% (BldA) [Mass fraction] 100 % Greta Cardenaser PA-C Work Phone: [facility] 11-23-2022 13:45-0400 Systolic blood pressure 106 mm[Hg] Greta Cardenaser PA-C Work Phone: [facility] 11-10-2022 09:41-0400 Body height 169.8 cm Grace Bess MD Work Phone: [facility] 11-10-2022 09:41-0400 Body temperature 97.3 [degF] Grace Bess MD Work Phone: [facility] 11-10-2022 09:41-0400 Body weight 82.64 kg Grace Bess MD Work Phone: [facility] 11-10-2022 09:41-0400 Diastolic blood pressure 77 mm[Hg] Grace Bess MD Work Phone: [facility] 11-10-2022 09:41-0400 Heart rate 80 /min Grace Bess MD Work Phone: [facility] 11-10-2022 09:41-0400 Respiratory rate 16 /min Grace Bess MD Work Phone: [facility] 11-10-2022 09:41-0400 SaO2% (BldA) [Mass fraction] 99 % Grace Bess MD Work Phone: [facility] 11-10-2022 09:41-0400 Systolic blood pressure 110 mm[Hg] Grace Bess MD Work Phone: [facility] 09-29-2022 10:19-0400 Body height 169.8 cm Grace Bess MD Work Phone: [facility] 05-11-2023 10:19-0400 Body temperature 97.59 [degF] Grace Bess MD Work Phone: [facility] 09-29-2022 10:19-0400 Body weight 90.27 kg Grace Bess MD Work Phone: [facility] 09-29-2022 10:19-0400 Diastolic blood pressure 74 mm[Hg] Grace Bess MD Work Phone: [facility] 09-29-2022 10:19-0400 Heart rate 69 /min Grace Bess MD Work Phone: [facility] 09-29-2022 10:19-0400 Respiratory rate 16 /min Grace Bess MD Work Phone: [facility] 09-29-2022 10:19-0400 SaO2% (BldA) [Mass fraction] 97 % Grace Bess MD Work Phone: [facility] 09-29-2022 10:19-0400 Systolic blood pressure 140 mm[Hg] Grace Bess MD Work Phone: [facility] 08-02-2022 10:20-0400 Body height 169.8 cm Grace Bess MD Work Phone: [facility] 08-02-2022 10:20-0400 Body temperature 97.59 [degF] Grace Bess MD Work Phone: [facility] 08-02-2022 10:20-0400 Body weight 90.81 kg Grace Bess MD Work Phone: [facility] 08-02-2022 10:20-0400 Diastolic blood pressure 74 mm[Hg] Grace Bess MD Work Phone: [facility] 08-02-2022 10:20-0400 Heart rate 75 /min Grace Bess MD Work Phone: [facility] 08-02-2022 10:20-0400 Respiratory rate 16 /min Grace Bess MD Work Phone: [facility] 08-02-2022 10:20-0400 SaO2% (BldA) [Mass fraction] 99 % Grace Bess MD Work Phone: [facility] 08-02-2022 10:20-0400 Systolic blood pressure 145 mm[Hg] Grace Bess MD Work Phone: [facility] 06-29-2022 10:37-0500 Body height 169.8 cm Grace Bess MD Work Phone: [facility] 06-29-2022 10:37-0500 Body temperature 97.59 [degF] Grace Bess MD Work Phone: [facility] 06-29-2022 10:37-0500 Body weight 89.45 kg Grace Bess MD Work Phone: [facility] 06-29-2022 10:37-0500 Diastolic blood pressure 77 mm[Hg] Grace Bess MD Work Phone: [facility] 06-29-2022 10:37-0500 Heart rate 81 /min Grace Bess MD Work Phone: [facility] 06-29-2022 10:37-0500 Respiratory rate 18 /min Grace Bess MD Work Phone: [facility] 06-29-2022 10:37-0500 SaO2% (BldA) [Mass fraction] 99 % Grace Bess MD Work Phone: [facility] 06-29-2022 10:37-0500 Systolic blood pressure 137 mm[Hg] Grace Bess MD Work Phone: [facility] 05-11-2022 09:23-0500 Body height 169.8 cm Grace Bess MD Work Phone: [facility] 05-11-2022 09:23-0500 Body temperature 97.5 [degF] Grace Bess MD Work Phone: [facility] 05-11-2022 09:23-0500 Body weight 88.72 kg Grace Bess MD Work Phone: [facility] 05-11-2022 09:23-0500 Diastolic blood pressure 70 mm[Hg] Grace Bess MD Work Phone: [facility] 05-11-2022 09:23-0500 Heart rate 76 /min Grace Bess MD Work Phone: [facility] 05-11-2022 09:23-0500 Respiratory rate 16 /min Grace Bess MD Work Phone: [facility] 05-11-2022 09:23-0500 SaO2% (BldA) [Mass fraction] 98 % Grace Bess MD Work Phone: [facility] 05-11-2022 09:23-0500 Systolic blood pressure 130 mm[Hg] Grace Bess MD Work Phone: [facility] 04-27-2022 08:50-0500 Body height 169.8 cm Yordy Moncada APRN.MEDICAL STAFF DIRECTOR Work Phone: [facility] 04-27-2022 08:50-0500 Body temperature 97.39 [degF] Yordy Moncada APRN.MEDICAL STAFF DIRECTOR Work Phone: [facility] 04-27-2022 08:50-0500 Body weight 87.64 kg Yordy Moncada APRN.MEDICAL STAFF DIRECTOR Work Phone: [facility] 04-27-2022 08:50-0500 Diastolic blood pressure 68 mm[Hg] Yordy Moncada APRN.MEDICAL STAFF DIRECTOR Work Phone: [facility] 04-27-2022 08:50-0500 Heart rate 79 /min Yordy Moncada APRN.MEDICAL STAFF DIRECTOR Work Phone: [facility] 04-27-2022 08:50-0500 Respiratory rate 16 /min Yordy Moncada APRN.MEDICAL STAFF DIRECTOR Work Phone: [facility] 04-27-2022 08:50-0500 SaO2% (BldA) [Mass fraction] 99 % Yordy Moncada APRN.MEDICAL STAFF DIRECTOR Work Phone: [facility] 04-27-2022 08:50-0500 Systolic blood pressure 136 mm[Hg] Yordy Moncada APRN.MEDICAL STAFF DIRECTOR Work Phone: [facility] 04-06-2022 11:57-0500 Body height 169.8 cm Greta Rashard PA-C Work Phone: [facility] 04-06-2022 11:57-0500 Body temperature 97.3 [degF] Greta Rashard PA-C Work Phone: [facility] 04-06-2022 11:57-0500 Body weight 88.81 kg Greta Rashard PA-C Work Phone: [facility] 04-06-2022 11:57-0500 Diastolic blood pressure 73 mm[Hg] Greta Rashard PA-C Work Phone: [facility] 04-06-2022 11:57-0500 Heart rate 76 /min Greta Rashard PA-C Work Phone: [facility] 04-06-2022 11:57-0500 Respiratory rate 16 /min Greta Rashard PA-C Work Phone: [facility] 04-06-2022 11:57-0500 SaO2% (BldA) [Mass fraction] 100 % Greta Rashard PA-C Work Phone: [facility] 04-06-2022 11:57-0500 Systolic blood pressure 125 mm[Hg] Greta Rashard PA-C Work Phone: [facility] 03-30-2022 10:46-0500 Body height 169.8 cm Greta Rashard PA-C Work Phone: [facility] 03-30-2022 10:46-0500 Body temperature 97.81 [degF] Greta Rashard PA-C Work Phone: [facility] 03-30-2022 10:46-0500 Body weight 87.64 kg Greta Rashard PA-C Work Phone: [facility] 03-30-2022 10:46-0500 Diastolic blood pressure 72 mm[Hg] Greta Rashard PA-C Work Phone: [facility] 03-30-2022 10:46-0500 Heart rate 69 /min Greta Rashard PA-C Work Phone: [facility] 03-30-2022 10:46-0500 Respiratory rate 16 /min Greta Rashard PA-C Work Phone: [facility] 03-30-2022 10:46-0500 SaO2% (BldA) [Mass fraction] 98 % Greta Rashard PA-C Work Phone: [facility] 03-30-2022 10:46-0500 Systolic blood pressure 136 mm[Hg] Greta Rsahard PA-C Work Phone: [facility] 03-16-2022 08:36-0400 Body height 169.8 cm Greta Rashard PA-C Work Phone: [facility] 03-16-2022 08:36-0400 Body temperature 97.81 [degF] Greta Rashard PA-C Work Phone: [facility] 03-16-2022 08:36-0400 Body weight 87.45 kg Greta Rashard PA-C Work Phone: [facility] 03-16-2022 08:36-0400 Diastolic blood pressure 75 mm[Hg] Greta Rashard PA-C Work Phone: [facility] 03-16-2022 08:36-0400 Heart rate 70 /min Greta Rashard PA-C Work Phone: [facility] 03-16-2022 08:36-0400 Respiratory rate 16 /min Greta Rashard PA-C Work Phone: [facility] 03-16-2022 08:36-0400 SaO2% (BldA) [Mass fraction] 97 % Greta Cardenaser PA-C Work Phone: [facility] 03-16-2022 08:36-0400 Systolic blood pressure 143 mm[Hg] Greta Cardenaser PA-C Work Phone: [facility] 03-09-2022 08:59-0400 Body height 172.7 cm Grace Bess MD Work Phone: [facility] 03-09-2022 08:59-0400 Body temperature 97.5 [degF] Grace Bess MD Work Phone: [facility] 03-09-2022 08:59-0400 Body weight 86.27 kg Grace Bess MD Work Phone: [facility] 03-09-2022 08:59-0400 Diastolic blood pressure 66 mm[Hg] Grace Bess MD Work Phone: [facility] 03-09-2022 08:59-0400 Heart rate 70 /min Grace Bess MD Work Phone: [facility] 03-09-2022 08:59-0400 Respiratory rate 16 /min Grace Bess MD Work Phone: [facility] 03-09-2022 08:59-0400 SaO2% (BldA) [Mass fraction] 98 % Grace Bess MD Work Phone: [facility] 03-09-2022 08:59-0400 Systolic blood pressure 143 mm[Hg] Grace Bess MD Work Phone: [facility] 02-22-2022 10:17-0400 Body height 172.7 cm Grace Bess MD Work Phone: [facility] 02-22-2022 10:17-0400 Body temperature 98.01 [degF] Grace Bess MD Work Phone: [facility] 02-22-2022 10:17-0400 Body weight 86.46 kg Grace Bess MD Work Phone: [facility] 02-22-2022 10:17-0400 Diastolic blood pressure 73 mm[Hg] Grace Bess MD Work Phone: [facility] 02-22-2022 10:17-0400 Heart rate 70 /min Grace Bess MD Work Phone: [facility] 02-22-2022 10:17-0400 Respiratory rate 16 /min Grace Bess MD Work Phone: [facility] 02-22-2022 10:17-0400 SaO2% (BldA) [Mass fraction] 99 % Grace Bess MD Work Phone: [facility] 02-22-2022 10:17-0400 Systolic blood pressure 135 mm[Hg] Grace Bess MD Work Phone: [facility] 10-22-2021 11:10-0400 Diastolic blood pressure 76 mm[Hg] Eyad Manriquez MD Work Phone: [facility] 10-22-2021 11:10-0400 Heart rate 64 /min Eyad Manriquez MD Work Phone: [facility] 10-22-2021 11:10-0400 Respiratory rate 16 /min Eyad Manriquez MD Work Phone: [facility] 10-22-2021 11:10-0400 SaO2% (BldA) [Mass fraction] 98 % Eyad Manriquez MD Work Phone: [facility] 10-22-2021 11:10-0400 Systolic blood pressure 130 mm[Hg] Eyad Manriquez MD Work Phone: [facility] 10-22-2021 10:50-0400 Body temperature 97.7 [degF] Eyad Manriquez MD Work Phone: [facility] 10-22-2021 [id number] Body height 172.7 cm Eyad Manriquez MD Work Phone: [facility] 10-22-2021 [id number] Body weight 86.18 kg Eyad Manriquez MD Work Phone: [facility] Clinical Notes 03-09-2020 to 10-11-2023 Samina Rae MA - 10/11/2023 1:27 PM EDTRSamina sheikh MA - 10/11/2023 9:30 AM Greta Gonzáles PA-C - 10/11/2023 9:30 AM Samina Smiley MA - 10/11/2023 9:30 AM EDT Note Date & Type Note Facility 10-11-2023 Note HNO ID: [id number] Author: SAMINA RAE MA Service: ? Author Type: Biochemistry Specialist Type: Progress Notes Filed: 10/11/2023 13:27 Note Text: Back office UA test performed. Results entered in [employer] and doctor notified. Samina Rae MA [facility] 10-11-2023 History of Present illness Narrative Back office UA test performed. Results entered in [employer] and doctor notified. Samina Rae MA documented in this encounter [facility] 10-11-2023 Note [facility] 10-11-2023 Nurse Note Pt complaints of fatigue and weakness today. Samina Rae MA [facility] 10-11-2023 History of Present illness Narrative PATIENT NAME: Uriel Anderson [facility] NO.: [id number] ATTENDING PHYSICIAN: Grace Bess MD DATE OF [...] lymph nodes. 2. NGS Tissue Based: KRAS [id number], EGFR amplified and RAC 1 Amplified , [...] covered stent. 4. CT 01/2022- Recurrence. 5. [place] and Abraxane 03/16/2022-05/11/2022 (Elected to stop chemo). 6. Resumed [place] and Abraxane 11/23/2022- 12/14/2022- Stopped due to poor tolerance. 7. Restarted [place] and Abraxane dose reduced, 2 week on [...] Range Status 10/11/2023 7.7 % Final Abs [place] Date Value Ref Range Status 10/11/2023 0.77 [...] rising CA 19-9 and elected to restart [place] and Abraxane 11/23/2022. However, he had a very poor tolerance of therapy and has had decline in QOL. Therapy was held at that time 12/14/2022. Discussed the current status and rising CA 199 and options of no therapy, repeat chemo with dose modifications and or Xeloda. He wants to restart [place] and Abraxane, which he was on 02/01/2023 and dose reduced and have a 2 week on and 2 week off schedule. Slight delay due to Thanksgiving and URI, his neuropathy is worst and the Abraxane was stopped and continued [place]. CT 04/[address] Bess [...] which included preparing to see the patient, [id number] patient care, completing clinical documentation, performing a medically appropriate examination, counseling and educating the patient/family/caregiver, ordering medications, tests, or procedures, independently interpreting results (not separately reported), and communicating results to the patient/family/caregiver. documented in this encounter [facility] 10-11-2023 Nurse Note Pt complaints of fatigue and weakness today. Samina Rae MA documented in this encounter [facility] 10-05-2023 Telephone encounter Note Voicemail has not been set up yet. No way to leave a message. Josephine Salomon RN [facility] Work Phone: 10-05-2023 Miscellaneous Notes Voicemail has not been set up yet. No way to leave a message. Josephine Salomon RN ----- Message from Greta Wetzel PA-C sent at 10/04/2023 12:56 PM EDT ----- Please call with improving ca19-9 documented in this encounter [facility] 10-05-2023 Telephone encounter Note ----- Message from Greta Wetzel PA-C sent at 10/04/2023 12:56 PM EDT ----- Please call with improving ca19-9 [facility] 10-04-2023 Telephone encounter Note Pt's voicemail has not been set up yet. Unable to leave a message. Josephine Salomon RN [facility] Work Phone: 10-04-2023 Miscellaneous Notes Pt's voicemail has not been set up yet. Unable to leave a message. Josephine Salomon RN ----- Message from Greta Wetzel PA-C sent at 10/03/2023 4:09 PM EDT ----- Please call with negative cxr documented in this encounter [facility] 10-04-2023 Telephone encounter Note ----- Message from Greta Wetzel PA-C sent at 10/03/2023 4:09 PM EDT ----- Please call with negative cxr [facility] 10-04-2023 Telephone encounter Note Spoke with pt spouse. She discussed with pt. Legs not as swollen, will hold off for now and call back if needed. Denies further questions, needs or concerns at this time. KOFI Travis RN [facility] 10-04-2023 Miscellaneous Notes Spoke with pt spouse. [...] swelling if he wants. Greta Wetzel PA-C [facility] US department called with NEGATIVE DVT report. Key Travis RN Patient has been scheduled for STAT US today @ [place] 10/02 between 1 & 1:30 pm. If positive, Radiology will call w/ results. Ora Jones documented in this encounter [facility] 10-03-2023 Telephone encounter Note Spoke with spouse, Brittni.aware of negative DVT per US, and MM recommendation. Pt is home, she is driving. She will discuss with him and call tomorrow with decision on Lasix. Key Traivs RN [facility] 10-03-2023 Telephone encounter Note Please inform the patient of negative DVT. We could start lasix 20 mg daily for a week and see if it helps the swelling if he wants. Greta Wetzel PA-C [facility] 10-03-2023 Note [facility] 10-03-2023 Telephone encounter Note [facility] US department called with NEGATIVE DVT report. Key Travis RN [facility] 10-03-2023 Note [facility] 10-03-2023 Telephone encounter Note Patient has been scheduled for STAT US today @ [place] 10/02 between 1 & 1:30 pm. If positive, Radiology will call w/ results. Ora Jones [facility] 10-03-2023 History of Present illness Narrative PATIENT NAME: Uriel Anderson [facility] NO.: [id number] ATTENDING PHYSICIAN: Grace Bess MD DATE OF [...] lymph nodes. 2. NGS Tissue Based: KRAS [id number], EGFR amplified and RAC 1 Amplified , [...] covered stent. 4. CT 01/2022- Recurrence. 5. [place] and Abraxane 03/16/2022-05/11/2022 (Elected to stop chemo). 6. Resumed [place] and Abraxane 11/23/2022- 12/14/2022- Stopped due to poor tolerance. 7. Restarted [place] and Abraxane dose reduced, 2 week on [...] polyneuropathy, without long-term current use of insulin ([facility]) 06/07/2023 Gastric outlet obstruction Obstructive sleep apnea [...] Range Status 10/03/2023 12.7 % Final Abs I[place]quois Date Value Ref Range Status 10/03/2023 1.25 [...] rising CA 19-9 and elected to restart [place] and Abraxane 11/23/2022. However, he had a very poor tolerance of therapy and has had decline in QOL. Therapy was held at that time 12/14/2022. Discussed the current status and rising CA 199 and options of no therapy, repeat chemo with dose modifications and or Xeloda. He wants to restart [place] and Abraxane, which he was on 02/01/2023 and dose reduced and have a 2 week on and 2 week off schedule. Slight delay due to Thanksgiving and URI, his neuropathy is worst and the Abraxane was stopped and continued [place]. [place] 04/[address] Bess [...] which included preparing to see the patient, [id number] patient care, completing clinical documentation, performing a medically appropriate examination, counseling and educating the patient/family/caregiver, ordering medications, tests, or procedures, independently interpreting results (not separately reported), and communicating results to the patient/family/caregiver. documented in this encounter [facility] 09-25-2023 Telephone encounter Note I will place these orders so my day is not delayed, however Yordy saw the patient last and should be the one to place the orders. Greta Wetzel PA-C [facility] 09-25-2023 Miscellaneous Notes I will place these orders so my day is not delayed, however Yordy saw the patient last and should be the one to place the orders. Greta Wetzel PA-C Patient has an appt on 10/03/23. Would you like labs, if so place orders. Janet Dotson MA documented in this encounter [facility] 09-25-2023 Telephone encounter Note Patient has an appt on 10/03/23. Would you like labs, if so place orders. Janet Dotson MA [facility] 09-18-2023 Telephone encounter Note Pt's notified, verbalized understanding Josephine Salomon RN [facility] Work Phone: 09-18-2023 Miscellaneous Notes Pt's notified, [...] Josephine Salomon RN documented in this encounter [facility] 09-18-2023 Telephone encounter Note Agree if fevers and or worse he needs to let us know [facility] 09-18-2023 Telephone encounter Note Pt's calls stating [...] this helps. Please advise Josephine Salomon RN [facility] 09-13-2023 Note [facility] 09-13-2023 History of Present illness Narrative PATIENT NAME: Uriel Anderson CLINIC NO.: [id number] ATTENDING PHYSICIAN: Grace Bess MD DATE OF [...] lymph nodes. 2. NGS Tissue Based: KRAS [id number], EGFR amplified and RAC 1 Amplified , [...] covered stent. 4. CT 01/2022- Recurrence. 5. [place] and Abraxane 03/16/2022-05/11/2022 (Elected to stop chemo). 6. Resumed [place] and Abraxane 11/23/2022- 12/14/2022- Stopped due to poor tolerance. 7. Restarted [place] and Abraxane dose reduced, 2 week on [...] Range Status 09/13/2023 15.2 % Final Abs I[place]quois Date Value Ref Range Status 09/13/2023 0.59 [...] rising CA 19-9 and elected to restart [place] and Abraxane 11/23/2022. However, he had a very poor tolerance of therapy and has had declinind QOL. Therapy was held at that time 12/14/2022. Discussed the current status and rising CA 199 and options of no therapy, repeat chemo with dose modifications and or Xeloda. He wants to restart [place] and Abraxane, which he was on 02/01/2023 and dose reduced and have a 2 week on and 2 week off schedule. Slight delay due to Thanksgiving and URI, his neuropathy is worst and the Abraxane was stopped and continued [place]. [place] 04/2023 wit progressive disease. I had [...] hesitate to contact Grace Bess MD at [phone]. Yordy Moncada APRN.MEDICAL STAFF DIRECTOR Hematology/Medical Oncology [facility] CC: Giovanni Hamlin MD I spent a total of 30 minutes on the date of the service which included preparing to see the patient, [id number] patient care, completing clinical documentation, obtaining and/or reviewing separately obtained history, performing a medically appropriate examination, counseling and educating the patient/family/caregiver, ordering medications, tests, or procedures, independently interpreting results (not separately reported), and communicating results to the patient/family/caregiver. documented in this encounter [facility] 08-23-2023 Note [facility] 08-23-2023 History of Present illness Narrative PATIENT NAME: Uriel Anderson [facility] NO.: [id number] ATTENDING PHYSICIAN: Grace Bess MD DATE OF SERVICE: August 23, 2023 Some of the elements of this note have been copied from my previous progress note dated 08/02/2023. All the information has been reviewed carefully. Dear Dr. Hamlin here is an update on a follow up visit on quincy Anderson at the clinic August 23, 2023 Diagnosis: 1. T3, N2, M0 pancreatic cancer. Tumor is 8.1 cm, moderately differentiated adenocarcinoma, tumor invades duodenal wall, peripancreatic soft tissue. Margins were negative. Lymphovascular space invasion was present, perineural invasion was present. Metastatic disease in 7 of 27 lymph nodes. 2. NGS Tissue Based: KRAS [id number], EGFR amplified and RAC 1 Amplified , [...] covered stent 4. CT 01/2022- recurrence 5. [place] and Abraxane 03/16/2022-05/11/2022 ( elected to stop chemo) 6. Resumed [place] and Abraxane 11/23/2022- 12/14/2022- Stopped due to poor tolerance 7. Restarted [place] and Abraxane dose reduced, 2 week on [...] Range Status 08/23/2023 15.0 % Final Abs [place] Date Value Ref Range Status 08/23/2023 0.72 [...] rising CA 19-9 and elected to restart [place] and Abraxane 11/23/2022. However, he had a very poor tolerance of therapy and has had declinind QOL. Therapy was held at that time 12/14/2022 Discussed the current status and rising CA 199 and options of no therapy, repeat chemo with dose modifications and or Xeloda. He wants to restart [place] and Abraxane, which he was on 02/01/2023 and dose reduced and have a 2 week on and 2 week off schedule. Slight delay due to Thanksgiving and URI, his neuropathy is worst and the Abraxane was stopped and continued [place]. [place] 04/2023 wit progressive disease. I had [...] do not hesitate to contact me at [phone]. Grace Bess MD Hematology/Medical Oncology [facility] CC: Giovanni Hamlin MD I spent a total of 30 minutes on the date of the service which included preparing to see the patient, [id number] patient care, completing clinical documentation, obtaining and/or reviewing separately obtained history, performing a medically appropriate examination, counseling and educating the patient/family/caregiver, ordering medications, tests, or procedures, and independently interpreting results (not separately reported). documented in this encounter [facility] 08-18-2023 Note [facility] 08-18-2023 Note [facility] 08-11-2023 Miscellaneous Notes Call placed to patient again, no answer on both numbers. Left detailed message on [employer] number regarding new updated appts. Ora Jones Patient has been rescheduled to 08/22. Call placed to patient, no answer unable [...] Thanks! DEVYN Pelayo documented in this encounter [facility] 08-09-2023 Miscellaneous Notes Pt called today to [...] Josephine Salomon RN documented in this encounter [facility] 08-02-2023 Note [facility] 08-02-2023 History of Present illness Narrative PATIENT NAME: Uriel Anderson [facility] NO.: [id number] ATTENDING PHYSICIAN: Grace Bess MD DATE OF [...] lymph nodes. 2. NGS Tissue Based: KRAS [id number], EGFR amplified and RAC 1 Amplified , [...] covered stent 4. CT 01/2022- recurrence 5. [place] and Abraxane 03/16/2022-05/11/2022 ( elected to stop chemo) 6. Resumed [place] and Abraxane 11/23/2022- 12/14/2022- Stopped due to poor tolerance 7. Restarted [place] and Abraxane dose reduced, 2 week on [...] Range Status 08/02/2023 8.9 % Final Abs [place] Date Value Ref Range Status 08/02/2023 0.48 [...] rising CA 19-9 and elected to restart [place] and Abraxane 11/23/2022. However, he had a very poor tolerance of therapy and has had declinind QOL. Therapy was held at that time 12/14/2022 Discussed the current status and rising CA 199 and options of no therapy, repeat chemo with dose modifications and or Xeloda. He wants to restart [place] and Abraxane, which he was on 02/01/2023 and dose reduced and have a 2 week on and 2 week off schedule. Slight delay due to Thanksgiving and URI, his neuropathy is worst and the Abraxane was stopped and continued [place]. [place] 04/2023 wit progressive disease. I had [...] do not hesitate to contact me at [phone]. Grace Bess MD Hematology/Medical Oncology [facility] CC: Giovanni Hamlin MD I spent a total of 30 minutes on the date of the service which included preparing to see the patient, [id number] patient care, completing clinical documentation, obtaining and/or reviewing separately obtained history, performing a medically appropriate examination, counseling and educating the patient/family/caregiver, ordering medications, tests, or procedures, and independently interpreting results (not separately reported). documented in this encounter [facility] 07-19-2023 Note [facility] 07-19-2023 Note [facility] 07-19-2023 History of Present illness Narrative Oncology [...] irinotecan, leucovorin, 5FU Previous Treatment(s): [place] 12/04/2019, [place]/Abraxane Pt denies any chewing/swallowing issues, denies current [...] Dosing Weight: 71.5 kg Estimated kilocalorie needs: 1107-0888 kilocalories determined by 30-35 kcal/kg Estimated protein needs: 72-107 grams determined by 1.0-1.5 g/kg Dosing weight Estimated fluid needs: ~9344-5922 milliliters based on 1 mL per kcal [...] 15 minutes Signed by: Ibis Buchanan MS, KIP, LD documented in this encounter [facility] 07-19-2023 History of Present illness Narrative PATIENT NAME: Uriel Anderson [facility] NO.: [id number] ATTENDING PHYSICIAN: Grace Bess MD DATE OF [...] lymph nodes. 2. NGS Tissue Based: KRAS [id number], EGFR amplified and RAC 1 Amplified , [...] covered stent 4. CT 01/2022- Recurrence. 5. [place] and Abraxane 03/16/2022-05/11/2022 ( elected to stop chemo). 6. Resumed [place] and Abraxane 11/23/2022- 12/14/2022- Stopped due to poor tolerance 7. Restarted [place] and Abraxane dose reduced, 2 week on and 2 weeks off 02/01/2023, Worsening Neuropathy and Abraxane stopped 05/05/2023- CT 04/2023 with progressive disease. 8. JLUIA 06/07/2023. HPI: Uriel Anderson returns for follow-up [...] polyneuropathy, without long-term current use of insulin ([facility]) 06/07/2023 Gastric outlet obstruction Obstructive sleep apnea [...] Range Status 07/19/2023 7.7 % Final Abs [place]qu[place] Date Value Ref Range Status 07/19/2023 0.46 <0.87 k/uL Final Eosin% Date Value Ref Range Status 12/05/2022 0.9 % Final Abs Eosin Date Value Ref Range Status 07/19/2023 0.09 <0.46 k/uL Final Basophils % Date Value Ref Range Status 07/19/2023 0.7 % Final Abs Baso Date Value Ref Range Status 07/19/2023 0.04 <0.11 k/uL Final PATH: Whipple on [...] rising CA 19-9 and elected to restart [place] and Abraxane 11/23/2022. However, he had a very poor tolerance of therapy and has had declinind QOL. Therapy was held at that time 12/14/2022. Discussed the current status and rising CA 199 and options of no therapy, repeat chemo with dose modifications and or Xeloda. He wants to restart [place] and Abraxane, which he was on 02/01/2023 and dose reduced and have a 2 week on and 2 week off schedule. Slight delay due to Thanksgiving and URI, his neuropathy is worst and the Abraxane was stopped and continued [place]. [place] 04/2023 with progressive disease. We had [...] not hesitate to contact Dr. Bess at [phone]. Yordy Moncada APRN.[facility] Hematology/Medical Oncology [facility] CC: Giovanni Hamlin MD I spent a total of 30 minutes on the date of the service which included preparing to see the patient, [id number] patient care, completing clinical documentation, obtaining and/or reviewing separately obtained history, performing a medically appropriate examination, counseling and educating the patient/family/caregiver, ordering medications, tests, or procedures, independently interpreting results (not separately reported), and communicating results to the patient/family/caregiver. documented in this encounter [facility] 07-05-2023 Note [facility] 07-05-2023 History of Present illness Narrative PATIENT NAME: Uriel Anderson [facility] NO.: [id number] ATTENDING PHYSICIAN: Grace Bess MD DATE OF SERVICE: July 05, 2023 [...] lymph nodes. 2. NGS Tissue Based: KRAS [id number], EGFR amplified and RAC 1 Amplified , [...] covered stent 4. CT 01/2022- Recurrence. 5. [place] and Abraxane 03/16/2022-05/11/2022 ( elected to stop chemo). 6. Resumed [place] and Abraxane 11/23/2022- 12/14/2022- Stopped due to poor tolerance 7. Restarted [place] and Abraxane dose reduced, 2 week on [...] Range Status 07/05/2023 6.9 % Final Abs [place] Date Value Ref Range Status 07/05/2023 0.41 [...] the prostate gland. Assessment and Plan: Uriel Anedrson is a 73 year old year old [...] rising CA 19-9 and elected to restart [place] and Abraxane 11/23/2022. However, he had a very poor tolerance of therapy and has had declinind QOL. Therapy was held at that time 12/14/2022. Discussed the current status and rising CA 199 and options of no therapy, repeat chemo with dose modifications and or Xeloda. He wants to restart [place] and Abraxane, which he was on 02/01/2023 and dose reduced and have a 2 week on and 2 week off schedule. Slight delay due to Thanksgiving and URI, his neuropathy is worst and the Abraxane was stopped and continued [place]. [place] 04/2023 with progressive disease. We had [...] not hesitate to contact Dr. Bess at [phone]. Yordy Moncada APRN.CNP Hematology/Medical Oncology [facility] CC: Giovanni Hamlin MD I spent a total of 30 minutes on the date of the service which included preparing to see the patient, [id number] patient care, completing clinical documentation, obtaining and/or reviewing separately obtained history, performing a medically appropriate examination, counseling and educating the patient/family/caregiver, ordering medications, tests, or procedures, independently interpreting results (not separately reported), and communicating results to the patient/family/caregiver. documented in this encounter [facility] 06-23-2023 Miscellaneous Notes Pt's calls requesting tumor marker results. Notified her that they were not drawn at his visit on Monday, and are ordered for next time. Josephine Salomon RN documented in this encounter [facility] 06-21-2023 Note [facility] 06-21-2023 Note [facility] 06-07-2023 Note [facility] 06-07-2023 Note [facility] 06-07-2023 Note [facility] 05-24-2023 Note [facility] 05-18-2023 Note [facility] 05-18-2023 Note [facility] 05-12-2023 Note [facility] 05-05-2023 Note HNO ID: [id number] Author: Daja Carnes RN Service: ? 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 Daja Carnes RN [facility] 05-05-2023 Note [facility] 05-05-2023 History of Present illness Narrative It was confirmed with to hold abraxane today due to worsening neuropathy. Daja Carnes RN documented in this encounter [facility] 05-05-2023 History of Present illness Narrative PATIENT NAME: Uriel Anderson [facility] NO.: [id number] ATTENDING PHYSICIAN: Grace Bess MD DATE OF [...] lymph nodes. 2. NGS Tissue Based: KRAS [id number], EGFR amplified and RAC 1 Amplified , [...] covered stent 4. CT 01/2022- recurrence 5. [place] and Abraxane 03/16/2022-05/11/2022 ( elected to stop chemo) 6. Resumed [place] and Abraxane 11/23/2022- 12/14/2022- Stopped due to poor tolerance 7. Restarted [place] and Abraxane dose reduced, 2 week on [...] Types: Cigarettes Quit date: 2019 Years since quittin.9 Passive exposure: Past Smokeless [...] Range Status 05/05/2023 7.7 % Final Abs [place] Date Value Ref Range Status 05/05/2023 1.12 [...] rising CA 19-9 and elected to restart [place] and Abraxane 11/23/2022. However, he had a very poor tolerance of therapy and has had declinind QOL. Therapy was held at that time 12/14/2022 Discussed the current status and rising CA 199 and options of no therapy, repeat chemo with dose modifications and or Xeloda. He wants to restart [place] and Abraxane, which he was on 02/01/2023 [...] do not hesitate to contact me at [phone]. Grace Bess MD Hematology/Medical Oncology [facility] CC: Giovanni Hamlin MD I spent a total of 30 minutes on the date of the service which included preparing to see the patient, [id number] patient care, completing clinical documentation, obtaining and/or reviewing separately obtained history, performing a medically appropriate examination, counseling and educating the patient/family/caregiver, ordering medications, tests, or procedures, and independently interpreting results (not separately reported). documented in this encounter [facility] 04-07-2023 Miscellaneous Notes Pt notified of results. Josephien Salomon RN ----- Message from Grace Bess MD sent at 04/07/2023 9:10 AM EST ----- Please call with tumor marker. documented in this encounter [facility] 04-05-2023 Note [facility] 04-05-2023 Miscellaneous Notes Addended by: YORDY MONCADA on: 04/05/2023 03:25 PM Modules accepted: Orders documented in this encounter [facility] 04-05-2023 History of Present illness Narrative PATIENT NAME: Uriel Anderson [facility] NO.: [id number] ATTENDING PHYSICIAN: Grace Bess MD DATE OF [...] lymph nodes. 2. NGS Tissue Based: KRAS [id number], EGFR amplified and RAC 1 Amplified , [...] covered stent. 4. CT 01/2022- Recurrence. 5. [place] and Abraxane 03/16/2022-05/11/2022 ( elected to stop chemo) 6. Resumed [place] and Abraxane 11/23/2022- 12/14/2022- Stopped due to poor tolerance 7. Restarted [place] and Abraxane dose reduced, 2 week on [...] Range Status 04/05/2023 2.0 % Final Abs [place] Date Value Ref Range Status 04/05/2023 0.21 [...] rising CA 19-9 and elected to restart [place] and Abraxane 11/23/2022. However, he had a very poor tolerance of therapy and has had declined QOL. Therapy was held at that time 12/14/2022. CA 199 began to rise and options of no therapy, repeat chemo with dose modifications and/or Xeloda. He wanted to restart [place] and Abraxane, which he was on 02/01/2023 [...] chemotherapy and will monitor closely. Yordy Moncada APRN.MEDICAL STAFF DIRECTOR CC: Giovanni Hamlin MD I spent a total of 30 minutes on the date of the service which included preparing to see the patient, [id number] patient care, completing clinical documentation, obtaining and/or reviewing separately obtained history, performing a medically appropriate examination, counseling and educating the patient/family/caregiver, ordering medications, tests, or procedures, independently interpreting results (not separately reported), and communicating results to the patient/family/caregiver. documented in this encounter [facility] 04-04-2023 Miscellaneous Notes Pt notified of results. Josephine Salomon, LUIS ANTONIO Please call with ca19-9 results documented in this encounter [facility] 03-30-2023 Note [facility] 03-30-2023 History of Present illness Narrative PATIENT NAME: Uriel Anderson [facility] NO.: [id number] ATTENDING PHYSICIAN: Grace Bess MD DATE OF [...] lymph nodes. 2. NGS Tissue Based: KRAS [id number], EGFR amplified and RAC 1 Amplified , [...] covered stent 4. CT 01/2022- recurrence 5. [place] and Abraxane 03/16/2022-05/11/2022 ( elected to stop chemo) 6. Resumed [place] and Abraxane 11/23/2022- 12/14/2022- Stopped due to poor tolerance 7. Restarted [place] and Abraxane dose reduced, 2 week on [...] Range Status 03/30/2023 10.4 % Final Abs [place] Date Value Ref Range Status 03/30/2023 0.82 [...] rising CA 19-9 and elected to restart [place] and Abraxane 11/23/2022. However, he had a very poor tolerance of therapy and has had declined QOL. Therapy was held at that time 12/14/2022 CA 199 began to rise and options of no therapy, repeat chemo with dose modifications and/or Xeloda. He wanted to restart [place] and Abraxane, which he was on 02/01/2023 [...] Giovanni Hamlin MD documented in this encounter [facility] 03-08-2023 Note [facility] 03-08-2023 History of Present illness Narrative PATIENT NAME: Uriel Anderson CLINIC NO.: [id number] ATTENDING PHYSICIAN: Grace Bess MD DATE OF [...] lymph nodes. 2. NGS Tissue Based: KRAS [id number], EGFR amplified and RAC 1 Amplified , [...] covered stent 4. CT 01/2022- recurrence 5. [place] and Abraxane 03/16/2022-05/11/2022 ( elected to stop chemo) 6. Resumed [place] and Abraxane 11/23/2022- 12/14/2022- Stopped due to poor tolerance 7. Restarted [place] and Abraxane dose reduced, 2 week on [...] Range Status 03/01/2023 11.6 % Final Abs [place] Date Value Ref Range Status 03/01/2023 0.94 [...] rising CA 19-9 and elected to restart [place] and Abraxane 11/23/2022. However, he had a very poor tolerance of therapy and has had declinind QOL. Therapy was held at that time 12/14/2022 Discussed the current status and rising CA 199 and options of no therapy, repeat chemo with dose modifications and or Xeloda. He wants to restart [place] and Abraxane, which he was on 02/01/2023 [...] do not hesitate to contact me at [phone]. Grace Bses MD Hematology/Medical Oncology [facility] CC: Giovanni Hamlin MD I spent a total of 30 minutes on the date of the service which included preparing to see the patient, hupj-lc-abru patient care, completing clinical documentation, obtaining and/or reviewing separately obtained history, performing a medically appropriate examination, counseling and educating the patient/family/caregiver, ordering medications, tests, or procedures, and independently interpreting results (not separately reported). documented in this encounter [facility] 03-02-2023 Miscellaneous Notes Pt notified of results and is agreeable to this. Josephine Salomon RN ----- Message from Grace Bess MD sent at 03/02/2023 1:57 PM EDT ----- Tell him that his Tumor marker is stable and if he is ok we will continue the chemo for now documented in this encounter [facility] 03-01-2023 Note [facility] 02-08-2023 Note HNO ID: [id number] Author: Florinda Rincon RN Service: ? Author Type: Registered Nurse Type: Progress Notes Filed: 02/08/2023 3:45 PM Note Text: Dex discontinued from tx plan per HM due to elevated blood sugars. Florinda Rincon RN [facility] 02-08-2023 Note [facility] 02-08-2023 History of Present illness Narrative Dex discontinued from tx plan per HM due to elevated blood sugars. Florinda Rincon RN documented in this encounter [facility] 02-08-2023 History of Present illness Narrative PATIENT NAME: Uriel Gupta [facility] NO.: [id number] ATTENDING PHYSICIAN: Grace Bess MD DATE OF [...] lymph nodes. 2. NGS Tissue Based: KRAS [id number], EGFR amplified and RAC 1 Amplified , [...] stent . 4. CT 01/2022- Recurrence. 5. [place] and Abraxane 03/16/2022-05/11/2022. (Elected to stop chemo) 6. Resumed [place] and Abraxane 11/23/2022- 12/14/2022- Stopped due to poor tolerance. 7. Restarted [place] and Abraxane dose reduced, 2 week on [...] Range Status 02/08/2023 4.3 % Final Abs [place]quois Date Value Ref Range Status 02/08/2023 0.22 [...] rising CA 19-9 and elected to restart [place] and Abraxane 11/23/2022. However, he had a very poor tolerance of therapy and has had declinind QOL. Therapy was held at that time 12/14/2022. Restarted [place] and Abraxane 02/01/2023. Will continue with dose [...] hesitate to contact Grace Bess MD at [phone]. Yordy Moncada APRN.[facility] Hematology/Medical Oncology [facility] CC: Giovanni Hamlin MD I spent a total of 30 minutes on the date of the service which included preparing to see the patient, uiag-sx-coyt patient care, completing clinical documentation, obtaining and/or reviewing separately obtained history, performing a medically appropriate examination, counseling and educating the patient/family/caregiver, ordering medications, tests, or procedures, independently interpreting results (not separately reported), and communicating results to the patient/family/caregiver. documented in this encounter [facility] 02-01-2023 Note [facility] 02-01-2023 Miscellaneous Notes He likely has neuropathy [...] Elisha Reece RN documented in this encounter [facility] 02-01-2023 History of Present illness Narrative PATIENT NAME: Uriel Anderson [facility] NO.: [id number] ATTENDING PHYSICIAN: Grace Bess MD DATE OF [...] lymph nodes. 2. NGS Tissue Based: KRAS [id number], EGFR amplified and RAC 1 Amplified , [...] covered stent 4. CT 01/2022- recurrence 5. [place] and Abraxane 03/16/2022-05/11/2022 ( elected to stop chemo) 6. Resumed [place] and Abraxane 11/23/2022- 12/14/2022- Stopped due to poor tolerance 7. Restarted [place] and Abraxane dose reduced, 2 week on [...] Range Status 02/01/2023 6.1 % Final Abs [place] Date Value Ref Range Status 02/01/2023 0.70 [...] rising CA 19-9 and elected to restart [place] and Abraxane 11/23/2022. However, he had a very poor tolerance of therapy and has had declinind QOL. Therapy was held at that time 12/14/2022 Discussed the current status and rising CA 199 and options of no therapy, repeat chemo with dose modifications and Xeloda. He wants to restart [place] and Abraxane. Will dose reduce and have a 2 week on and 2 week off schedule Continue nutrition follow up Anemia- Improved off chemo DM- Follow endocrine See back next week for day 8 Thank you for the kind referral. If there are any questions and or concerns please do not hesitate to contact me at [phone]. Grace Bess MD Hematology/Medical Oncology [facility] CC: Giovanni Hamlin MD I spent a total of 30 minutes on the date of the service which included preparing to see the patient, krfw-oe-xsrq patient care, completing clinical documentation, obtaining and/or reviewing separately obtained history, performing a medically appropriate examination, counseling and educating the patient/family/caregiver, ordering medications, tests, or procedures, and independently interpreting results (not separately reported). documented in this encounter [facility] 01-04-2023 Note [facility] 01-04-2023 History of Present illness Narrative PATIENT NAME: Uriel Anderson [facility] NO.: [id number] ATTENDING PHYSICIAN: Grace Bess MD DATE OF [...] lymph nodes. 2. NGS Tissue Based: KRAS [id number], EGFR amplified and RAC 1 Amplified , [...] covered stent 4. CT 01/2022- recurrence 5. [place] and Abraxane 03/16/2022-05/11/2022 ( elected to stop chemo) 6. Resumed [place] and Abraxane 11/23/2022- 12/14/2022- Stopped due to [...] Types: Cigarettes Quit date: 2018 Years since quittin.6 Passive exposure: Past Smokeless [...] Range Status 01/04/2023 8.8 % Final Abs [place] Date Value Ref Range Status 01/04/2023 0.87 [...] rising CA 19-9 and elected to restart [place] and Abraxane 11/23/2022. However, he has very [...] do not hesitate to contact me at [phone]. Grace Bess MD Hematology/Medical Oncology [facility] CC: Giovanni Hamlin MD I spent a total of 30 minutes on the date of the service which included preparing to see the patient, ehut-ur-tcmx patient care, completing clinical documentation, obtaining and/or reviewing separately obtained history, performing a medically appropriate examination, counseling and educating the patient/family/caregiver, ordering medications, tests, or procedures, and independently interpreting results (not separately reported). documented in this encounter [facility] 12-21-2022 Miscellaneous Notes Pt's notified of results [...] PA-C Call received from riley Choi at [facility] stating pt's CT is negative for PE. Shows subtle nodular tree-in-bud opacities predominantly in the right upper lobe concerning for infectious bronchiolitis. Josephine Salomon RN documented in this encounter [facility] 12-21-2022 Note [facility] 12-21-2022 Note [facility] 12-21-2022 History of Present illness Narrative Left sutures to forehead removed as ordered per Jacoby Wetzel PA-C, patient tolerated well, S/S of infections reinforced patient and spouse verbalizes understanding Lashaun Riojas RN documented in this encounter [facility] 12-21-2022 History of Present illness Narrative PATIENT NAME: Uriel Gupta [facility] NO.: [id number] ATTENDING PHYSICIAN: Grace Bess MD DATE OF [...] lymph nodes. 2. NGS Tissue Based: KRAS [id number], EGFR amplified and RAC 1 Amplified , [...] covered stent 4. CT 01/2022- recurrence 5. [place] and Abraxane 03/16/2022-05/11/2022 ( elected to stop chemo) 6. Resumed [place] and Abraxane 11/23/2022 HPI: Alfred returns for day 8 of treatment. He complains of weakness, fatigue and LINDSEY. He feel while at [facility] 12/15/22 and went to [facility]. Ct head and cervical spine were [...] Types: Cigarettes Quit date: 2019 Years since quittin.5 Passive exposure: Past Smokeless [...] Range Status 12/21/2022 8.5 % Final Abs Iroqu[place] Date Value Ref Range Status 12/21/2022 0.32 [...] SYNOPTIC REPORT OF MANJARREZ PATHOLOGIC FINDINGS WHIPPLE, SOLANGEADER, OMENTUM: PANCREAS EXOCRINE WORKSHEET Specimen: Head of [...] rising CA 19-9 and elected to restart [place] and Abraxane 11/23/2022. [place] dose was decreased with cycle 2 day [...] Giovanni Hamlin MD documented in this encounter [facility] 12-15-2022 Hospital Discharge instructions Additional Instructions Tetanus was updated today in emergency department Sutures should be removed in 5 to 7 days Apply ice to affected area Neosporin daily Sunscreen after healed to reduce scarring For signs of infection redness, swelling, purulent drainage follow-up immediately Follow-up with your doctor for recheck in the next 3 to 5 days [facility] Work Phone: 12-14-2022 Note [facility] 12-05-2022 Note [facility] 12-05-2022 History of Present illness Narrative [facility]: [facility] NO.: [id number] ATTENDING PHYSICIAN: Grace Bess MD DATE OF SERVICE: December 05, 2022 [...] lymph nodes. 2. NGS Tissue Based: KRAS [id number], EGFR amplified and RAC 1 Amplified , [...] covered stent 4. CT 01/2022- recurrence 5. [place] and Abraxane 03/16/2022-05/11/2022 ( elected to stop chemo) 6. Resumed [place] and Abraxane 11/23/2022 HPI: Uriel returns for [...] Range Status 11/30/2022 4.3 % Final Abs [place] Date Value Ref Range Status 11/30/2022 0.26 [...] rising CA 19-9 and elected to restart [place] and Abraxane 11/23/2022. Tolerating well, however, is having significant anemia, likely from chemotherapy. Will type and cross and transfuse 1 unit of PRBCs. He will return in 1 week for the next cycle of chemotherapy, and will like need dose reductions. Continue nutrition follow up DM- Follow endocrine Greta Wetzel PA-C CC: Giovanni Hamlin MD documented in this encounter [facility] 11-30-2022 Note [facility] 11-30-2022 History of Present illness Narrative PATIENT NAME: Uriel Anderson [facility] NO.: [id number] ATTENDING PHYSICIAN: Grace Bess MD DATE OF [...] lymph nodes. 2. NGS Tissue Based: KRAS [id number], EGFR amplified and RAC 1 Amplified , [...] covered stent 4. CT 01/2022- recurrence 5. [place] and Abraxane 03/16/2022-05/11/2022 ( elected to stop chemo) 6. Resumed [place] and Abraxane 11/23/2022 HPI: Uriel Anderson is [...] Range Status 11/30/2022 4.3 % Final Abs [place] Date Value Ref Range Status 11/30/2022 0.26 [...] rising CA 19-9 and elected to restart [place] and Abraxane 11/23/2022 Continue nutrition follow up Anemia- Will repeat CBC next week as he is more anemic with the start of the chemo DM- Follow endocrine RTC next week for cbc check Thank you for the kind referral. If there are any questions and or concerns please do not hesitate to contact me at [phone]. rGace Bess MD Hematology/Medical Oncology [facility] CC: Giovanni Hamlin MD I spent a total of 30 minutes on the date of the service which included preparing to see the patient, nqwn-ke-ajxn patient care, completing clinical documentation, obtaining and/or reviewing separately obtained history, performing a medically appropriate examination, counseling and educating the patient/family/caregiver, ordering medications, tests, or procedures, and independently interpreting results (not separately reported). documented in this encounter [facility] 11-28-[address] Keyes office spoke with Praveen. She states patient was seen at their office on 11/[address] Keyes. Praveen will be faxing over Dr Keyes office note from this visit to our office sometime today. Charlotte Wetzel Pss Records faxed to Dr. Leiva. Please refer patient to Endocrinology dx Type 2 diabetes mellitus Their office to call patient after review of records. Darline, Please fax records to Dr Leiva. Lionel, Please follow up on this appt Thank you documented in this encounter [facility] 11-23-2022 Note [facility] 11-23-2022 History of Present illness Narrative PAT[facility]: [facility] NO.: [id number] ATTENDING PHYSICIAN: Grace Bess MD DATE OF [...] lymph nodes. 2. NGS Tissue Based: KRAS [id number], EGFR amplified and RAC 1 Amplified , [...] covered stent 4. CT 01/2022- recurrence 5. 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 Today he complains of complete exhaustion . [...] Range Status 11/23/2022 7.1 % Final Abs [place] Date Value Ref Range Status 11/23/2022 0.77 [...] SYNOPTIC REPORT OF MANJARREZ PATHOLOGIC FINDINGS HAMIPPLE, GALLBLADER, OMENTUM: PANCREAS EXOCRINE WORKSHEET Specimen: Head [...] Giovanni Hamlin MD documented in this encounter [facility] 11-10-2022 Miscellaneous Notes Spoke with pt's who [...] Josephine Salomon RN documented in this encounter [facility] 11-10-2022 Note [facility] 11-10-2022 History of Present illness Narrative PATIENT NAME: Uriel Anderson [facility] NO.: [id number] ATTENDING PHYSICIAN: Grace Bess MD DATE OF SERVICE: November 10, 2022 [...] lymph nodes. 2. NGS Tissue Based: KRAS [id number], EGFR amplified and RAC 1 Amplified , [...] covered stent 4. CT 01/2022- recurrence 5. [place] and Abraxane 03/16/2022-05/11/2022 ( elected to stop [...] Types: Cigarettes Quit date: 2018 Years since quittin.4 Passive exposure: Past Smokeless [...] Range Status 09/29/2022 8.0 % Final Abs [place] Date Value Ref Range Status 09/29/2022 0.68 [...] resuming theroay again and they agreed Restart [place] and Abraxane again next week. Continue nutrition follow up Anemia- Monitor- Improved Resume chemo next week Thank you for the kind referral. If there are any questions and or concerns please do not hesitate to contact me at [phone]. Grace Bess MD Hematology/Medical Oncology [facility] CC: Giovanni Hamlin MD I spent a total of 30 minutes on the date of the service which included preparing to see the patient, foir-oy-eotw patient care, completing clinical documentation, obtaining and/or reviewing separately obtained history, performing a medically appropriate examination, counseling and educating the patient/family/caregiver, ordering medications, tests, or procedures, and independently interpreting results (not separately reported). documented in this encounter [facility] 11-07-2022 Miscellaneous Notes Pt notified of results. Josephine Salomon RN ----- Message from Grace Bess MD sent at 11/06/2022 11:30 AM EDT ----- Call with stable CT scan and no evidence of progressive disease documented in this encounter [facility] 11-03-2022 Note [facility] 11-03-2022 Note [facility] 11-03-2022 Note [facility] 11-03-2022 History of Present illness Narrative Summary: IRB# [id number] Informed Consent CASE [id number] (IRB [id number]): Tissue [...] Clinical Research Nurse documented in this encounter [facility] 09-29-2022 History of Present illness Narrative PATIENT NAME: Uriel Anderson [facility] NO.: [id number] ATTENDING PHYSICIAN: Grace Bess MD DATE OF [...] lymph nodes. 2. NGS Tissue Based: KRAS [id number], EGFR amplified and RAC 1 Amplified , [...] covered stent 4. CT 01/2022- recurrence 5. [place] and Abraxane 03/16/2022-05/11/2022 ( elected to stop chemo) HPI: Uirel Anderson is a 72 year old year [...] Range Status 08/02/2022 8.6 % Final Abs [place] Date Value Ref Range Status 08/02/2022 0.81 [...] SYNOPTIC REPORT OF MANJARREZ PATHOLOGIC FINDINGS HAMIPPLE, GALLBLADER, OMENTUM: PANCREAS EXOCRINE WORKSHEET Specimen: Head [...] do not hesitate to contact me at [phone]. Grace Bess MD Hematology/Medical Oncology [facility] CC: Giovanni Hamlin MD I spent a total of 30 minutes on the date of the service which included preparing to see the patient, vppg-ii-mrbi patient care, completing clinical documentation, obtaining and/or reviewing separately obtained history, performing a medically appropriate examination, counseling and educating the patient/family/caregiver, ordering medications, tests, or procedures, and independently interpreting results (not separately reported). documented in this encounter [facility] 08-02-2022 History of Present illness Narrative PATIENT NAME: Uriel Anderson [facility] NO.: [id number] ATTENDING PHYSICIAN: Grace Bess MD DATE OF [...] lymph nodes. 2. NGS Tissue Based: KRAS [id number], EGFR amplified and RAC 1 Amplified , [...] covered stent 4. CT 01/2022- recurrence 5. [place] and Abraxane 03/16/2022-05/11/2022 ( elected to stop [...] Range Status 08/02/2022 8.6 % Final Abs [place] Date Value Ref Range Status 08/02/2022 0.81 [...] do not hesitate to contact me at [phone]. Grace Bess MD Hematology/Medical Oncology [facility] CC: Giovanni Hamlin MD I spent a total of 30 minutes on the date of the service which included preparing to see the patient, oqel-aj-nair patient care, completing clinical documentation, obtaining and/or reviewing separately obtained history, performing a medically appropriate examination, counseling and educating the patient/family/caregiver, ordering medications, tests, or procedures, and independently interpreting results (not separately reported). documented in this encounter [facility] 06-29-2022 History of Present illness Narrative PATIENT NAME: Uriel Anderson CLIN[facility] NO.: [id number] ATTENDING PHYSICIAN: Grace Bess MD DATE OF [...] lymph nodes. 2. NGS Tissue Based: KRAS [id number], EGFR amplified and RAC 1 Amplified , [...] covered stent 4. CT 01/2022- recurrence 5. [place] and Abraxane 03/16/2022 HPI: Uriel Anderson is [...] 06/29/2022 2.15 1.00 - 4.00 k/uL Final Iroquois% Date Value Ref Range Status 06/29/2022 10.2 % Final Abs [place] Date Value Ref Range Status 06/29/2022 1.05 [...] do not hesitate to contact me at [phone]. Grace Bess MD Hematology/Medical Oncology [facility] CC: Giovanni Hamlin MD I spent a total of 30 minutes on the date of the service which included preparing to see the patient, qcjh-rj-nimy patient care, completing clinical documentation, obtaining and/or reviewing separately obtained history, performing a medically appropriate examination, counseling and educating the patient/family/caregiver, ordering medications, tests, or procedures, and independently interpreting results (not separately reported). documented in this encounter [facility] 05-11-2022 Miscellaneous Notes Addended by: GRACE BESS on: 05/11/2022 09:59 AM Modules accepted: Orders documented in this encounter [facility] 05-11-2022 History of Present illness Narrative PATIENT NAME: Uriel Anderson CLIN[facility] NO.: [id number] ATTENDING PHYSICIAN: Grace Bess MD DATE OF [...] lymph nodes. 2. NGS Tissue Based: KRAS [id number], EGFR amplified and RAC 1 Amplified , [...] covered stent 4. CT 01/2022- recurrence 5. [place] and Abraxane 03/16/2022 HPI: Uriel Anderson is [...] 05/11/2022 1.49 1.00 - 4.00 k/uL Final Iroquois% Date Value Ref Range Status 05/11/2022 12.7 % Final Abs [place]quois Date Value Ref Range Status 05/11/2022 0.79 [...] high risk. Here for cycle 4 and [place] and Abraxane and will skip next week and plan imaging and see back in 3 weeks Continue nutrition follow up Anemia- Monitor. Thank you for the kind referral. If there are any questions and or concerns please do not hesitate to contact me at [phone]. Grace Bess MD Hematology/Medical Oncology [facility] CC: Giovanni Hamlin MD I spent a total of 30 minutes on the date of the service which included preparing to see the patient, rahv-at-qaxy patient care, completing clinical documentation, obtaining and/or reviewing separately obtained history, performing a medically appropriate examination, counseling and educating the patient/family/caregiver, ordering medications, tests, or procedures, and independently interpreting results (not separately reported). documented in this encounter [facility] 04-27-2022 History of Present illness Narrative PATIENT NAME: Uriel Anderson [facility] NO.: [id number] ATTENDING PHYSICIAN: Grace Bess MD DATE OF [...] lymph nodes. 2. NGS Tissue Based: KRAS [id number], EGFR amplified and RAC 1 Amplified , [...] Date Value 04/26/2022 413 02/11/2021 264 PATH: [place] on November: SYNOPTIC REPORT OF MANJARREZ PATHOLOGIC [...] hesitate to contact Grace Bess MD at [phone]. Yordy Moncada APRN.[facility] Hematology/Medical Oncology [facility] CC: Giovanni Hamlin MD documented in this encounter [facility] 04-20-2022 Miscellaneous Notes Call received from [facility] needing clarification on gabapentin script. Script is written to be taken daily for a quantity of 30, but states for 14 days on the script. Discussed with Dr Bess and he would like this for a full 30 days. Orders given to pharmacist without difficulty. Josephine Salomon RN documented in this encounter [facility] 04-06-2022 History of Present illness Narrative PATIENT NAME: Uriel Anderson CLIN[facility] NO.: [id number] ATTENDING PHYSICIAN: Grace Bess MD DATE OF [...] 03/30/2022 1.48 1.00 - 4.00 k/uL Final Iroquois% Date Value Ref Range Status 03/30/2022 8.7 % Final Abs [place]quois Date Value Ref Range Status 03/30/2022 0.56 [...] very high risk. He was started on [place] and abraxane 03/09/2022 with good tolerance so [...] Giovanni Hamlin MD documented in this encounter [facility] 04-05-2022 Miscellaneous Notes Pt has reviewed his results on my chart Josephine Salomon RN ----- Message from Greta Wetzel PA-C sent at 03/31/2022 10:46 AM EST ----- Please call with [id number] documented in this encounter [facility] 03-30-2022 Miscellaneous Notes Call received from Candy, pharmacist at [facility], regarding gabapentin script. Discussed with Greta who states pt will be taking it for 30 days now because it's working well. Pharmacist notified of this and she will remove the portion of the sig that says for 14 days. Josephine Salomon RN documented in this encounter [facility] 03-30-2022 History of Present illness Narrative PATIENT NAME: Uriel Anderson [facility] NO.: [id number] ATTENDING PHYSICIAN: Grace Bess MD DATE OF [...] 03/30/2022 1.48 1.00 - 4.00 k/uL Final Iroquois% Date Value Ref Range Status 03/30/2022 8.7 % Final Abs [place]ois Date Value Ref Range Status 03/30/2022 0.56 [...] very high risk. He was started on [place] and abraxane 03/09/2022 with good tolerance so far. Labs reviewed and stable. Proceed with cycle 2 day 1 today and return in 1 week for day 8. 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 Stable today, monitor Guardant 360 and tissue based NGS- still pending Medical Cancer genetics- germline testing negative Continue nutrition follow up Greta Wetzel PA-C CC: Giovanni Hamlin MD documented in this encounter [facility] 03-28-2022 Miscellaneous Notes Hitesh Brady Results left on patient voicemail. Uriel Anderson's Multi-Cancer panel plus preliminary evidence pancreatic cancer and pancreatitis genes through [employer] was negative for a pathogenic variant. Please see [employer] message for further discussion. Jose Antonio Emerson MS, [facility] Licensed, Certified Genetic Counselor documented in this encounter [facility] 03-17-2022 Miscellaneous Notes Pt's notified of negative stool results. Josephine Salomon RN documented in this encounter [facility] 03-16-2022 History of Present illness Narrative [facility] Consultation Note Genetic Counselor: Jose Antonio Emerson MS, [facility] [place] Patient: Uriel Anderson Patient Name and confirmed at initiation of visit. Appointment occurred via audiovisual communication through [employer] Virtual Visit. HIGH LEVEL SUMMARY: The patient's personal history is potentially suggestive of a hereditary cancer syndrome. The patient provided informed consent for Multi-Cancer panel plus preliminary evidence pancreatic cancer and pancreatitis genes through [employer]. Results are expected in 2-3 weeks. IDENTIFICATION [...] appropriate standard National Comprehensive Cancer Network and [place] [employer] guidelines, with consideration of their [...] PALB2, PDGFRA, PHOX2B, PMS2, POLD1, POLE, POT1, ZACRD9P, PTCH1, PTEN, RAD50, RAD51C, RAD51D, RB1, RECQL4, RET, RUNX1, SDHA, SDHAF2, SDHB, SDHC, SDHD, SMAD4, SMARCA4, SMARCB1, SMARCE1, STK11, SUFU, TERC, TERT, TPUH832, TP53, TSC1, TSC2, VHL, WRN, and WT1. [...] greater than 50% of which was spent lpsq-ka-mixy counseling. This plan is being carried out under the oversight of Dr. Marina Aaron. This note will also be sent to the referring provider via the electronic medical record. Jose Antonio Emerson MS, [facility] Licensed, Certified Genetic Counselor EPIC CC: Dr. Grace Aaron documented in this encounter [facility] 03-16-2022 History of Present illness Narrative Pt c/o neuropathy becoming more aggravating. Bilateral hands up to forearms. This is not new since starting treatment. This was discussed with Akshat Prakash at treatment chairside and he will be given a trial of neurontin to take prior to bedtime. No change in doses required. documented in this encounter [facility] 03-16-2022 Miscellaneous Notes Addended by: GRETA WETZEL on: 03/16/2022 11:21 AM Modules accepted: Orders documented in this encounter [facility] 03-16-2022 History of Present illness Narrative Oncology [...] up: prn Referred/Supervised by: Josephine Salomon RN/Dr. Bess MNT Billing Type: Re-assess/15 min 1 unit Billed Time: 15 minutes Signed by: Ibis Harvey MS, RDJo, LD documented in this encounter [facility] 03-16-2022 Nurse Note Patient states that he has numbness in both hands and arms, he thinks it may be arthritits. Stomach is also queezy . He does states he feels short of breath, also has had some bleeding with brushing teeth and blowing nose. Janet Dotson MA documented in this encounter [facility] 03-16-2022 History of Present illness Narrative PATIENT NAME: Uriel Anderson [facility] NO.: [id number] ATTENDING PHYSICIAN: Grace Bess MD DATE OF [...] 03/16/2022 1.38 1.00 - 4.00 k/uL Final Iroquois% Date Value Ref Range Status 03/16/2022 7.7 % Final Abs Iroquois Date Value Ref Range Status 03/16/2022 0.28 [...] SYNOPTIC REPORT OF MANJARREZ PATHOLOGIC FINDINGS TAHMINA, BEKABLADER, OMENTUM: PANCREAS EXOCRINE WORKSHEET Specimen: Head of [...] very high risk. He was started on [place] and abraxane 03/09/2022 with good tolerance so [...] underlying neuropathy is unknown. Also, per Dr. Bess ok to change patient to 2 weeks on and 1 week off due to poor counts. Patient will be scheduled for cycle 2 in 2 weeks. Greta Wetzel PA-C CC: Giovanni Hamlin MD documented in this encounter [facility] 03-14-2022 Miscellaneous Notes CYCLE 1/DAY 1 POST [...] hours., and pt states he's out to brun right now and is feeling well. Integument: [...] Josephine Salomon RN documented in this encounter [facility] 03-10-2022 Miscellaneous Notes Pt's called health occupations instructor physician last night with questions regarding antiemetics. [...] Josephine Salomon RN documented in this encounter [facility] 03-09-2022 History of Present illness Narrative PSYCHOSOCIAL ASSESSMENT Date of Service: March 09, 2022 Uriel Anderson is a 71 year old male being seen for initial social work assessment. Diagnosis:Pacreatic Cancer Recurrence Primary Oncologist: Dr. Grace Bess Radiation Oncologist: Unknown Goals of Care: Palliative care Today's visit includes: self/patient Family History of Cancer: not discussed SUPPORT NETWORK: Marital status: Parent(s): Mother is and Father is Child/Children: Yes. How many? 1- biological daughter: 1 step-daughter and 1 step son care management coordinator arrangements needed: Na Grandchild(sherman): 3 Home Health Provider: No Community Services: No Candy Identified: No Scientologist/Spirituality: Spiritual Are these practices or beliefs that may affect or influence treatment? Unknown EMPLOYMENT/FINANCIAL/HEALTH INSURANCE: Employment: Retired Income source: Social Security Insurance: Medicare with co-insurance Prescription coverage: Yes Is the patient appropriate for referral to [facility] COBRA Assistance program? No Financial Distress: No : No FOOD [...] EPIC: No Health Care Durable Power of Proofing Machine Operator: Yes Scanned into EPIC: No Guardianship: NA [...] male with pancreatic cancer. Patient lives in [place], [place] with his Brittni Connor . Patient [...] PRN Follow up appointment with SW in: PRN DAVE Wright documented in this encounter [facility] 03-09-2022 Miscellaneous Notes Call received from pt's stating they are at [facility] in [place] waiting for pt's nausea medications. Call placed to our pharmacy and scripts will be transferred to [facility] in [place] shortly. Josephine Salomon RN documented in this encounter [facility] 03-09-2022 Miscellaneous Notes Patient assessed today. Patient [...] pill if unnecessary at this time. Ibis Harvey, MS, RDN, LD Pt did not bring in his specimen to today's visit. He was provided a specimen cup by treatment nurses. Josephine Salomon RN Call placed to pt's and they will get a specimen cup from daughter (nurse in oncology in [place]) and will refrigerate specimen until his appointment [...] Josephine Salomon RN documented in this encounter [facility] 03-09-2022 Miscellaneous Notes 1st report of treatment-Benefit investigation complete. Patient is active with Medicare, LOC 80%, $233 deductible has $0 remaining. He carries Plan G [employer] supplement which will cover the 20% allowable balances. Estimate shows patient financial responsibility is $0 for each treatment in 2021. Called the patient to discuss, left a voicemail to return call. documented in this encounter [facility] 03-09-2022 History of Present illness Narrative Oncology Nutrition Therapy Initial Assessment RECOMMENDED MALNUTRITION DIAGNOSIS: NO MALNUTRITION IDENTIFIED Nutrition Diagnosis: Food and Nutrition related knowledge deficit related to lack of prior nutrition-related education as evidenced by verbalizes inaccurate or incomplete information OR no prior knowledge of need for wyri-onr-xipqooyxg related recommendations Nutrition Intervention: -aim for small [...] 1.0-1.3 g/kg Dosing weight Estimated fluid needs: ~2309-8194 milliliters based on 1 mL per kcal [...] MS, RDN, LD documented in this encounter [facility] 03-09-2022 History of Present illness Narrative PATIENT NAME: Uriel Anderson [facility] NO.: [id number] ATTENDING PHYSICIAN: Grace Bess MD DATE OF [...] 03/07/2022 1.76 1.00 - 4.00 k/uL Final Iroquois% Date Value Ref Range Status 03/07/2022 6.4 % Final Abs Iroquois Date Value Ref Range Status 03/07/2022 0.69 [...] very high risk. Patient here to start [place] and Abraxane. Discussed AE again and he wishes to proceed. Guardant 360 and tissue based NGS- pending Medical Cancer genetics- Appontment pending Continue nutrition follow up See back in 1 week for day 8 Thank you for the kind referral. If there are any questions and or concerns please do not hesitate to contact me at [phone]. Grace Bess MD Hematology/Medical Oncology [facility] CC: Giovanni Hamlin MD I spent a total of 30 minutes on the date of the service which included preparing to see the patient, vtxo-ke-odxj patient care, completing clinical documentation, obtaining and/or reviewing separately obtained history, performing a medically appropriate examination, counseling and educating the patient/family/caregiver, ordering medications, tests, or procedures, and independently interpreting results (not separately reported). documented in this encounter [facility] 03-07-2022 History of Present illness Narrative ONCOLOGY [...] Josephine Salomon RN documented in this encounter [facility] 03-04-2022 Miscellaneous Notes Pt will be in for education Monday. Please sign pending antiemetics for gem/abraxane. Thanks Josephine Salomon RN documented in this encounter [facility] 02-25-2022 Miscellaneous Notes You are scheduled for a Mediport Placement, On 03/02/2022. You are to arrive at 12:30 pm and Report to [facility] for Sedation Cases: [facility]: Enter through [facility] entrance. Proceed to [...] if they are not done at a [facility] facility. . Direct Support Specialist/Transportation: How will you be arriving for your procedure? Private car. You will need a responsible adult to accompany you to and from the procedure. Your hydraulic lift driver is required to stay with you until you are taken into the procedure room. If you have any questions please call [phone] documented in this encounter [facility] 02-22-2022 Miscellaneous Notes Patient's appointments have been [...] Josephine Salomon RN documented in this encounter [facility] 02-22-2022 Miscellaneous Notes Pt saw Dr Bess this morning and has several questions at checkout regarding treatment. Questions answered and reassurance given. Josephine Salomon RN documented in this encounter [facility] 02-22-2022 History of Present illness Narrative PATIENT NAME: Uriel Anderson [facility] NO.: [id number] ATTENDING PHYSICIAN: Grace Bess MD DATE OF [...] 0.55 (L) 1.00 - 4.00 k/uL Final Iroquois% Date Value Ref Range Status 02/05/2021 4.9 % Final Abs Iroquois Date Value Ref Range Status 02/05/2021 1.27 (H) <0.87 k/uL Final Abs Eosin Date Value Ref Range Status 02/05/2021 <0.03 <0.46 k/uL Final Baso% Date Value Ref Range Status 02/05/2021 0.2 % Final Abs Baso Date Value Ref Range Status 02/05/2021 0.06 <0.11 k/uL Final PATH: [place] on November: SYNOPTIC REPORT OF MANJARREZ PATHOLOGIC FINDINGS HAMIPPLE, GALLBLADER, OMENTUM: PANCREAS EXOCRINE WORKSHEET Specimen: Head [...] need systemic therapy at this time. Discussed [place] and Abraxane based on the IMPACT trial and also the toxicity, Refer to Port placement Guardant 360 and tissue based NGS Refer to Medical Cancer genetics Refer to Nutrition Chemo teach Start therapy in 2 weeks Thank you for the kind referral. If there are any questions and or concerns please do not hesitate to contact me at [phone]. Grace Bess MD Hematology/Medical Oncology [facility] CC: Giovanni Hamlin MD I spent a total of 55 minutes on the date of the service which included preparing to see the patient, pskj-uu-zfng patient care, completing clinical documentation, obtaining and/or reviewing separately obtained history, performing a medically appropriate examination, counseling and educating the patient/family/caregiver, ordering medications, tests, or procedures, and independently interpreting results (not separately reported). documented in this encounter [facility] 02-22-2022 Nurse Note Patient states that fingers [...] Janet Dotson MA documented in this encounter [facility] 02-18-2022 History of Present illness Narrative AMBULATORY [...] Fara Monaco MD documented in this encounter [facility] 02-10-[address] Pancreas scheduled on [...] They would like to come before the winter. Please call [phone]. documented in this encounter [facility] 10-22-2021 Nurse Note Patient requesting to leave [...] REFERRAL (RECOMMENDATION): None documented in this encounter [facility] 08-10-[address] 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 Is there any issue with pt having xray? Ph. [phone] Please Advise Sahra Olmstead (Alexi) Community Service Organization Director II DDSI documented in this encounter [facility] 03-23-2020 Note [id number] [facility] 03-09-2020 History of Past i llness Narrative Problem Noted Date Resolved Date Sepsis 03/09/2020 03/13/2020 Obesity, Class II, BMI 35-39.9 12/06/2019 1 07/09/2019 documented as of this encounter (statuses as of 08/10/2021) [facility] History of Past illness Narrative* Problem Noted Date Resolved Date Sepsis 03/09/2020 03/13/2020 Obesity, Class II, BMI 35-39.9 12/06/2019 1 07/09/2019 documented as of this encounter (statuses as of 10/23/2021) [facility] History of Past illness Narrative* Problem Noted Date Resolved Date Sepsis 03/09/2020 03/13/2020 Obesity, Class II, BMI 35-39.9 12/06/2019 1 07/09/2019 documented as of this encounter (statuses as of 02/08/2022) [facility] History of Past illness Narrative* Problem Noted Date Resolved Date Sepsis 03/09/2020 03/13/2020 Obesity, Class II, BMI 35-39.9 12/06/2019 1 07/09/2019 documented as of this encounter (statuses as of 02/10/2022) [facility] History of Past illness Narrative* Problem Noted Date Resolved Date Sepsis 03/09/2020 03/13/2020 Obesity, Class II, BMI 35-39.9 12/06/2019 1 07/09/2019 documented as of this encounter (statuses as of 02/18/2022) [facility] History of Past illness Narrative* Problem Noted Date Resolved Date Sepsis 03/09/2020 03/13/2020 Obesity, Class II, BMI 35-39.9 12/06/2019 1 07/09/2019 documented as of this encounter (statuses as of 02/22/2022) [facility] History of Past illness Narrative* Problem Noted Date Resolved Date Sepsis 03/09/2020 03/13/2020 Obesity, Class II, BMI 35-39.9 12/06/2019 1 07/09/2019 documented as of this encounter (statuses as of 02/23/2022) [facility] History of Past illness Narrative* Problem Noted Date Resolved Date Sepsis 03/09/2020 03/13/2020 Obesity, Class II, BMI 35-39.9 12/06/2019 1 07/09/2019 documented as of this encounter (statuses as of 02/25/2022) [facility] History of Past illness Narrative* Problem Noted Date Resolved Date Sepsis 03/09/2020 03/13/2020 Obesity, Class II, BMI 35-39.9 12/06/2019 1 07/09/2019 documented as of this encounter (statuses as of 02/28/2022) [facility] History of Past illness Narrative* Problem Noted Date Resolved Date Sepsis 03/09/2020 03/13/2020 Obesity, Class II, BMI 35-39.9 12/06/2019 1 07/09/2019 documented as of this encounter (statuses as of 03/07/2022) [facility] History of Past illness Narrative* Problem Noted Date Resolved Date Sepsis 03/09/2020 03/13/2020 Obesity, Class II, BMI 35-39.9 12/06/2019 1 07/09/2019 documented as of this encounter (statuses as of 03/07/2022) [facility] History of Past illness Narrative* Problem Noted Date Resolved Date Sepsis 03/09/2020 03/13/2020 Obesity, Class II, BMI 35-39.9 12/06/2019 1 07/09/2019 documented as of this encounter (statuses as of 03/09/2022) [facility] History of Past illness Narrative* Problem Noted Date Resolved Date Sepsis 03/09/2020 03/13/2020 Obesity, Class II, BMI 35-39.9 12/06/2019 1 07/09/2019 documented as of this encounter (statuses as of 03/09/2022) [facility] History of Past illness Narrative* Problem Noted Date Resolved Date Sepsis 03/09/2020 03/13/2020 Obesity, Class II, BMI 35-39.9 12/06/2019 1 07/09/2019 documented as of this encounter (statuses as of 03/09/2022) [facility] History of Past illness Narrative* Problem Noted Date Resolved Date Sepsis 03/09/2020 03/13/2020 Obesity, Class II, BMI 35-39.9 12/06/2019 1 07/09/2019 documented as of this encounter (statuses as of 03/10/2022) [facility] History of Past illness Narrative* Problem Noted Date Resolved Date Sepsis 03/09/2020 03/13/2020 Obesity, Class II, BMI 35-39.9 12/06/2019 1 07/09/2019 documented as of this encounter (statuses as of 03/11/2022) [facility] History of Past illness Narrative* Problem Noted Date Resolved Date Sepsis 03/09/2020 03/13/2020 Obesity, Class II, BMI 35-39.9 12/06/2019 1 07/09/2019 documented as of this encounter (statuses as of 03/14/2022) [facility] History of Past illness Narrative* Problem Noted Date Resolved Date Sepsis 03/09/2020 03/13/2020 Obesity, Class II, BMI 35-39.9 12/06/2019 1 07/09/2019 documented as of this encounter (statuses as of 03/16/2022) [facility] History of Past illness Narrative* Problem Noted Date Resolved Date Sepsis 03/09/2020 03/13/2020 Obesity, Class II, BMI 35-39.9 12/06/2019 1 07/09/2019 documented as of this encounter (statuses as of 03/16/2022) [facility] History of Past illness Narrative* Problem Noted Date Resolved Date Sepsis 03/09/2020 03/13/2020 Obesity, Class II, BMI 35-39.9 12/06/2019 1 07/09/2019 documented as of this encounter (statuses as of 03/16/2022) [facility] History of Past illness Narrative* Problem Noted Date Resolved Date Sepsis 03/09/2020 03/13/2020 Obesity, Class II, BMI 35-39.9 12/06/2019 1 07/09/2019 documented as of this encounter (statuses as of 03/16/2022) [facility] History of Past illness Narrative* Problem Noted Date Resolved Date Sepsis 03/09/2020 03/13/2020 Obesity, Class II, BMI 35-39.9 12/06/2019 1 07/09/2019 documented as of this encounter (statuses as of 03/17/2022) [facility] History of Past illness Narrative* Problem Noted Date Resolved Date Sepsis 03/09/2020 03/13/2020 Obesity, Class II, BMI 35-39.9 12/06/2019 1 07/09/2019 documented as of this encounter (statuses as of 03/28/2022) [facility] History of Past illness Narrative* Problem Noted Date Resolved Date Sepsis 03/09/2020 03/13/2020 Obesity, Class II, BMI 35-39.9 12/06/2019 1 07/09/2019 documented as of this encounter (statuses as of 03/30/2022) [facility] History of Past illness Narrative* Problem Noted Date Resolved Date Sepsis 03/09/2020 03/13/2020 Obesity, Class II, BMI 35-39.9 12/06/2019 1 07/09/2019 documented as of this encounter (statuses as of 03/30/2022) [facility] History of Past illness Narrative* Problem Noted Date Resolved Date Sepsis 03/09/2020 03/13/2020 Obesity, Class II, BMI 35-39.9 12/06/2019 1 07/09/2019 documented as of this encounter (statuses as of 03/30/2022) [facility] History of Past illness Narrative* Problem Noted Date Resolved Date Sepsis 03/09/2020 03/13/2020 Obesity, Class II, BMI 35-39.9 12/06/2019 1 07/09/2019 documented as of this encounter (statuses as of 04/05/2022) [facility] History of Past illness Narrative* Problem Noted Date Resolved Date Sepsis 03/09/2020 03/13/2020 Obesity, Class II, BMI 35-39.9 12/06/2019 1 07/09/2019 documented as of this encounter (statuses as of 04/06/2022) [facility] History of Past illness Narrative* Problem Noted Date Resolved Date Sepsis 03/09/2020 03/13/2020 Obesity, Class II, BMI 35-39.9 12/06/2019 1 07/09/2019 documented as of this encounter (statuses as of 04/06/2022) [facility] History of Past illness Narrative* Problem Noted Date Resolved Date Sepsis 03/09/2020 03/13/2020 Obesity, Class II, BMI 35-39.9 12/06/2019 1 07/09/2019 documented as of this encounter (statuses as of 04/06/2022) [facility] History of Past illness Narrative* Problem Noted Date Resolved Date Sepsis 03/09/2020 03/13/2020 Obesity, Class II, BMI 35-39.9 12/06/2019 1 07/09/2019 documented as of this encounter (statuses as of 04/20/2022) [facility] History of Past illness Narrative* Problem Noted Date Resolved Date Sepsis 03/09/2020 03/13/2020 Obesity, Class II, BMI 35-39.9 12/06/2019 1 07/09/2019 documented as of this encounter (statuses as of 04/20/2022) [facility] History of Past illness Narrative* Problem Noted Date Resolved Date Sepsis 03/09/2020 03/13/2020 Obesity, Class II, BMI 35-39.9 12/06/2019 1 07/09/2019 documented as of this encounter (statuses as of 04/26/2022) [facility] History of Past illness Narrative* Problem Noted Date Resolved Date Sepsis 03/09/2020 03/13/2020 Obesity, Class II, BMI 35-39.9 12/06/2019 1 07/09/2019 documented as of this encounter (statuses as of 04/27/2022) [facility] History of Past illness Narrative* Problem Noted Date Resolved Date Sepsis 03/09/2020 03/13/2020 Obesity, Class II, BMI 35-39.9 12/06/2019 1 07/09/2019 documented as of this encounter (statuses as of 04/29/2022) [address]19-2020 History of Past illness Narrative* Problem Noted Date Resolved Date Sepsis 03/09/2020 03/13/2020 Obesity, Class II, BMI 35-39.9 12/06/2019 1 07/09/2019 documented as of this encounter (statuses as of 05/11/2022) [facility] of Past illness Narrative* Problem Noted Date Resolved Date Sepsis 03/09/2020 03/13/2020 Obesity, Class II, BMI 35-39.9 12/06/2019 1 07/09/2019 documented as of this encounter (statuses as of 05/11/2022) [facility] History of Past illness Narrative* Problem Noted Date Resolved Date Sepsis 03/09/2020 03/13/2020 Obesity, Class II, BMI 35-39.9 12/06/2019 1 07/09/2019 documented as of this encounter (statuses as of 05/11/2022) [address]19-2020 History of Past illness Narrative* Problem Noted Date Resolved Date Sepsis 03/09/2020 03/13/2020 Obesity, Class II, BMI 35-39.9 12/06/2019 1 07/09/2019 documented as of this encounter (statuses as of 05/13/2022) [facility] History of Past illness Narrative* Problem Noted Date Resolved Date Sepsis 03/09/2020 03/13/2020 Obesity, Class II, BMI 35-39.9 12/06/2019 1 07/09/2019 documented as of this encounter (statuses as of 06/01/2022) [address]19-2020 History of Past illness Narrative* Problem Noted Date Resolved Date Sepsis 03/09/2020 03/13/2020 Obesity, Class II, BMI 35-39.9 12/06/2019 1 07/09/2019 documented as of this encounter (statuses as of 06/29/2022) [address]19[address]2020 History of Past illness Narrative* Problem Noted Date Resolved Date Sepsis 03/09/2020 03/13/2020 Obesity, Class II, BMI 35-39.9 12/06/2019 1 07/09/2019 documented as of this encounter (statuses as of 06/29/2022) [facility] of Past illness Narrative* Problem Noted Date Resolved Date Sepsis 03/09/2020 03/13/2020 Obesity, Class II, BMI 35-39.9 12/06/2019 1 07/09/2019 documented as of this encounter (statuses as of 08/02/2022) [facility] of Past illness Narrative* Problem Noted Date Resolved Date Sepsis 03/09/2020 03/13/2020 Obesity, Class II, BMI 35-39.9 12/06/2019 1 07/09/2019 documented as of this encounter (statuses as of 08/02/2022) [facility] History of Past illness Narrative* Problem Noted Date Resolved Date Sepsis 03/09/2020 03/13/2020 Obesity, Class II, BMI 35-39.9 12/06/2019 1 07/09/2019 documented as of this encounter (statuses as of 08/04/2022) [facility]2020 History of Past illness Narrative* Problem Noted Date Resolved Date Sepsis 03/09/2020 03/13/2020 Obesity, Class II, BMI 35-39.9 12/06/2019 1 07/09/2019 documented as of this encounter (statuses as of 09/29/2022) [facility] History of Past illness Narrative* Problem Noted Date Resolved Date Sepsis 03/09/2020 03/13/2020 Obesity, Class II, BMI 35-39.9 12/06/2019 1 07/09/2019 documented as of this encounter (statuses as of 09/29/2022) [facility] History of Past illness Narrative* Problem Noted Date Resolved Date Sepsis 03/09/2020 03/13/2020 Obesity, Class II, BMI 35-39.9 12/06/2019 1 07/09/2019 documented as of this encounter (statuses as of 11/03/2022) [facility] History of Past illness Narrative* Problem Noted Date Resolved Date Sepsis 03/09/2020 03/13/2020 Obesity, Class II, BMI 35-39.9 12/06/2019 1 07/09/2019 documented as of this encounter (statuses as of 11/07/2022) [facility] History of Past illness Narrative* Problem Noted Date Resolved Date Sepsis 03/09/2020 03/13/2020 Obesity, Class II, BMI 35-39.9 12/06/2019 1 07/09/2019 documented as of this encounter (statuses as of 11/10/2022) [facility] History of Past illness Narrative* Problem Noted Date Resolved Date Sepsis 03/09/2020 03/13/2020 Obesity, Class II, BMI 35-39.9 12/06/2019 1 07/09/2019 documented as of this encounter (statuses as of 11/10/2022) [facility] History of Past illness Narrative* Problem Noted Date Resolved Date Sepsis 03/09/2020 03/13/2020 Obesity, Class II, BMI 35-39.9 12/06/2019 1 07/09/2019 documented as of this encounter (statuses as of 11/24/2022) [facility] History of Past illness Narrative* Problem Noted Date Resolved Date Sepsis 03/09/2020 03/13/2020 Obesity, Class II, BMI 35-39.9 12/06/2019 1 07/09/2019 documented as of this encounter (statuses as of 11/24/2022) [facility] History of Past illness Narrative* Problem Noted Date Resolved Date Sepsis 03/09/2020 03/13/2020 Obesity, Class II, BMI 35-39.9 12/06/2019 1 07/09/2019 documented as of this encounter (statuses as of 11/24/2022) [facility] History of Past illness Narrative* Problem Noted Date Diagnosed Date Resolved Date Sepsis 03/09/2020 03/13/2020 Obesity, Class II, BMI 35-39.9 12/06/2019 05/08/2020 documented as of this encounter (statuses as of 11/28/2022) [facility] History of Past illness Narrative* Problem Noted Date Diagnosed Date Resolved Date Sepsis 03/09/2020 03/13/2020 Obesity, Class II, BMI 35-39.9 12/06/2019 05/08/2020 documented as of this encounter (statuses as of 11/30/2022) [facility] History of Past illness Narrative* Problem Noted Date Diagnosed Date Resolved Date Sepsis 03/09/2020 03/13/2020 Obesity, Class II, BMI 35-39.9 12/06/2019 05/08/2020 documented as of this encounter (statuses as of 11/30/2022) [facility] History of Past illness Narrative* Problem Noted Date Diagnosed Date Resolved Date Sepsis 03/09/2020 03/13/2020 Obesity, Class II, BMI 35-39.9 12/06/2019 05/08/2020 documented as of this encounter (statuses as of 12/05/2022) [facility] History of Past illness Narrative* Problem Noted Date Diagnosed Date Resolved Date Sepsis 03/09/2020 03/13/2020 Obesity, Class II, BMI 35-39.9 12/06/2019 05/08/2020 documented as of this encounter (statuses as of 12/05/2022) [facility] History of Past illness Narrative* Problem Noted Date Diagnosed Date Resolved Date Sepsis 03/09/2020 03/13/2020 Obesity, Class II, BMI 35-39.9 12/06/2019 05/08/2020 documented as of this encounter (statuses as of 12/06/2022) [facility] History of Past illness Narrative* Problem Noted Date Diagnosed Date Resolved Date Sepsis 03/09/2020 03/13/2020 Obesity, Class II, BMI 35-39.9 12/06/2019 05/08/2020 documented as of this encounter (statuses as of 12/06/2022) [facility] History of Past illness Narrative* Problem Noted Date Diagnosed Date Resolved Date Sepsis 03/09/2020 03/13/2020 Obesity, Class II, BMI 35-39.9 12/06/2019 05/08/2020 documented as of this encounter (statuses as of 12/14/2022) [facility] History of Past illness Narrative* Problem Noted Date Diagnosed Date Resolved Date Sepsis 03/09/2020 03/13/2020 Obesity, Class II, BMI 35-39.9 12/06/2019 05/08/2020 documented as of this encounter (statuses as of 12/14/2022) [facility] History of Past illness Narrative* Problem Noted Date Diagnosed Date Resolved Date Sepsis 03/09/2020 03/13/2020 Obesity, Class II, BMI 35-39.9 12/06/2019 05/08/2020 documented as of this encounter (statuses as of 12/21/2022) [facility] History of Past illness Narrative* Problem Noted Date Diagnosed Date Resolved Date Sepsis 03/09/2020 03/13/2020 Obesity, Class II, BMI 35-39.9 12/06/2019 05/08/2020 documented as of this encounter (statuses as of 12/21/2022) [facility] History of Past illness Narrative* Problem Noted Date Diagnosed Date Resolved Date Sepsis 03/09/2020 03/13/2020 Obesity, Class II, BMI 35-39.9 12/06/2019 05/08/2020 documented as of this encounter (statuses as of 12/21/2022) [facility] History of Past illness Narrative* Problem Noted Date Diagnosed Date Resolved Date Sepsis 03/09/2020 03/13/2020 Obesity, Class II, BMI 35-39.9 12/06/2019 05/08/2020 documented as of this encounter (statuses as of 12/22/2022) [facility] History of Past illness Narrative* Problem Noted Date Diagnosed Date Resolved Date Sepsis 03/09/2020 03/13/2020 Obesity, Class II, BMI 35-39.9 12/06/2019 05/08/2020 documented as of this encounter (statuses as of 01/05/2023) [facility] History of Past illness Narrative* Problem Noted Date Diagnosed Date Resolved Date Sepsis 03/09/2020 03/13/2020 Obesity, Class II, BMI 35-39.9 12/06/2019 05/08/2020 documented as of this encounter (statuses as of 02/01/2023) [facility] History of Past illness Narrative* Problem Noted Date Diagnosed Date Resolved Date Sepsis 03/09/2020 03/13/2020 Obesity, Class II, BMI 35-39.9 12/06/2019 05/08/2020 documented as of this encounter (statuses as of 02/01/2023) [facility] History of Past illness Narrative* Problem Noted Date Diagnosed Date Resolved Date Sepsis 03/09/2020 03/13/2020 Obesity, Class II, BMI 35-39.9 12/06/2019 05/08/2020 documented as of this encounter (statuses as of 02/09/2023) [facility] History of Past illness Narrative* Problem Noted Date Diagnosed Date Resolved Date Sepsis 03/09/2020 03/13/2020 Obesity, Class II, BMI 35-39.9 12/06/2019 05/08/2020 documented as of this encounter (statuses as of 02/10/2023) [facility] History of Past illness Narrative* Problem Noted Date Diagnosed Date Resolved Date Sepsis 03/09/2020 03/13/2020 Obesity, Class II, BMI 35-39.9 12/06/2019 05/08/2020 documented as of this encounter (statuses as of 02/11/2023) [facility] History of Past illness Narrative* Problem Noted Date Diagnosed Date Resolved Date Sepsis 03/09/2020 03/13/2020 Obesity, Class II, BMI 35-39.9 12/06/2019 05/08/2020 documented as of this encounter (statuses as of 03/01/2023) [address]19-2020 History of Past illness Narrative* Problem Noted Date Diagnosed Date Resolved Date Sepsis 03/09/2020 03/13/2020 Obesity, Class II, BMI 35-39.9 12/06/2019 05/08/2020 documented as of this encounter (statuses as of 03/03/2023) [facility] History of Past illness Narrative* Problem Noted Date Diagnosed Date Resolved Date Sepsis 03/09/2020 03/13/2020 Obesity, Class II, BMI 35-39.9 12/06/2019 05/08/2020 documented as of this encounter (statuses as of 03/08/2023) [facility] History of Past illness Narrative* Problem Noted Date Diagnosed Date Resolved Date Sepsis 03/09/2020 03/13/2020 Obesity, Class II, BMI 35-39.9 12/06/2019 05/08/2020 documented as of this encounter (statuses as of 03/08/2023) [facility] History of Past illness Narrative* Problem Noted Date Diagnosed Date Resolved Date Sepsis 03/09/2020 03/13/2020 Obesity, Class II, BMI 35-39.9 12/06/2019 05/08/2020 documented as of this encounter (statuses as of 03/09/2023) [facility] History of Past illness Narrative* Problem Noted Date Diagnosed Date Resolved Date Sepsis 03/09/2020 03/13/2020 Obesity, Class II, BMI 35-39.9 12/06/2019 05/08/2020 documented as of this encounter (statuses as of 03/31/2023) [facility] History of Past illness Narrative* Problem Noted Date Diagnosed Date Resolved Date Sepsis 03/09/2020 03/13/2020 Obesity, Class II, BMI 35-39.9 12/06/2019 05/08/2020 documented as of this encounter (statuses as of 04/05/2023) [facility] History of Past illness Narrative* Problem Noted Date Diagnosed Date Resolved Date Sepsis 03/09/2020 03/13/2020 Obesity, Class II, BMI 35-39.9 12/06/2019 05/08/2020 documented as of this encounter (statuses as of 04/05/2023) [facility] History of Past illness Narrative* Problem Noted Date Diagnosed Date Resolved Date Sepsis 03/09/2020 03/13/2020 Obesity, Class II, BMI 35-39.9 12/06/2019 05/08/2020 documented as of this encounter (statuses as of 04/05/2023) [facility] History of Past illness Narrative* Problem Noted Date Diagnosed Date Resolved Date Sepsis 03/09/2020 03/13/2020 Obesity, Class II, BMI 35-39.9 12/06/2019 05/08/2020 documented as of this encounter (statuses as of 04/06/2023) [facility] History of Past illness Narrative* Problem Noted Date Diagnosed Date Resolved Date Sepsis 03/09/2020 03/13/2020 Obesity, Class II, BMI 35-39.9 12/06/2019 05/08/2020 documented as of this encounter (statuses as of 04/07/2023) [facility] History of Past illness Narrative* Problem Noted Date Diagnosed Date Resolved Date Sepsis 03/09/2020 03/13/2020 Obesity, Class II, BMI 35-39.9 12/06/2019 05/08/2020 documented as of this encounter (statuses as of 05/05/2023) [facility] History of Past illness Narrative* Problem Noted Date Diagnosed Date Resolved Date Sepsis 03/09/2020 03/13/2020 Obesity, Class II, BMI 35-39.9 12/06/2019 05/08/2020 documented as of this encounter (statuses as of 05/06/2023) [facility] History of Past illness Narrative* Problem Noted Date Diagnosed Date Resolved Date Sepsis 03/09/2020 03/13/2020 Obesity, Class II, BMI 35-39.9 12/06/2019 05/08/2020 documented as of this encounter (statuses as of 05/06/2023) [facility] History of Past illness Narrative* Problem Noted Date Diagnosed Date Resolved Date Sepsis 03/09/2020 03/13/2020 Obesity, Class II, BMI 35-39.9 12/06/2019 05/08/2020 documented as of this encounter (statuses as of 06/23/2023) [facility] History of Past illness Narrative* Problem Noted Date Diagnosed Date Resolved Date Sepsis 03/09/2020 03/13/2020 Obesity, Class II, BMI 35-39.9 12/06/2019 05/08/2020 documented as of this encounter (statuses as of 06/23/2023) [facility] History of Past illness Narrative* Problem Noted Date Diagnosed Date Resolved Date Sepsis 03/09/2020 03/13/2020 Obesity, Class II, BMI 35-39.9 12/06/2019 05/08/2020 documented as of this encounter (statuses as of 07/05/2023) [facility] History of Past illness Narrative* Problem Noted Date Diagnosed Date Resolved Date Sepsis 03/09/2020 03/13/2020 Obesity, Class II, BMI 35-39.9 12/06/2019 05/08/2020 documented as of this encounter (statuses as of 07/05/2023) [facility] History of Past illness Narrative* Problem Noted Date Diagnosed Date Resolved Date Sepsis 03/09/2020 03/13/2020 Obesity, Class II, BMI 35-39.9 12/06/2019 05/08/2020 documented as of this encounter (statuses as of 07/07/2023) [address]19-2020 History of Past illness Narrative* Problem Noted Date Diagnosed Date Resolved Date Sepsis 03/09/2020 03/13/2020 Obesity, Class II, BMI 35-39.9 12/06/2019 05/08/2020 documented as of this encounter (statuses as of 07/13/2023) [address]19-2020 History of Past illness Narrative* Problem Noted Date Diagnosed Date Resolved Date Sepsis 03/09/2020 03/13/2020 Obesity, Class II, BMI 35-39.9 12/06/2019 05/08/2020 documented as of this encounter (statuses as of 07/19/2023) [facility] History of Past illness Narrative* Problem Noted Date Diagnosed Date Resolved Date Sepsis 03/09/2020 03/13/2020 Obesity, Class II, BMI 35-39.9 12/06/2019 05/08/2020 documented as of this encounter (statuses as of 07/20/2023) [facility] History of Past illness Narrative* Problem Noted Date Diagnosed Date Resolved Date Sepsis 03/09/2020 03/13/2020 Obesity, Class II, BMI 35-39.9 12/06/2019 05/08/2020 documented as of this encounter (statuses as of 07/20/2023) [facility] History of Past illness Narrative* Problem Noted Date Diagnosed Date Resolved Date Sepsis 03/09/2020 03/13/2020 Obesity, Class II, BMI 35-39.9 12/06/2019 05/08/2020 documented as of this encounter (statuses as of 07/21/2023) [address]19-2020 History of Past illness Narrative* Problem Noted Date Diagnosed Date Resolved Date Sepsis 03/09/2020 03/13/2020 Obesity, Class II, BMI 35-39.9 12/06/2019 05/08/2020 documented as of this encounter (statuses as of 07/26/2023) [address]19-2020 History of Past illness Narrative* Problem Noted Date Diagnosed Date Resolved Date Sepsis 03/09/2020 03/13/2020 Obesity, Class II, BMI 35-39.9 12/06/2019 05/08/2020 documented as of this encounter (statuses as of 08/02/2023) [address]19-2020 History of Past illness Narrative* Problem Noted Date Diagnosed Date Resolved Date Sepsis 03/09/2020 03/13/2020 Obesity, Class II, BMI 35-39.9 12/06/2019 05/08/2020 documented as of this encounter (statuses as of 08/02/2023) [facility] History of Past illness Narrative* Problem Noted Date Diagnosed Date Resolved Date Sepsis 03/09/2020 03/13/2020 Obesity, Class II, BMI 35-39.9 12/06/2019 05/08/2020 documented as of this encounter (statuses as of 08/02/2023) [facility] History of Past illness Narrative* Problem Noted Date Diagnosed Date Resolved Date Sepsis 03/09/2020 03/13/2020 Obesity, Class II, BMI 35-39.9 12/06/2019 05/08/2020 documented as of this encounter (statuses as of 08/04/2023) [facility] History of Past illness Narrative* Problem Noted Date Diagnosed Date Resolved Date Sepsis 03/09/2020 03/13/2020 Obesity, Class II, BMI 35-39.9 12/06/2019 05/08/2020 documented as of this encounter (statuses as of 08/09/2023) [facility] History of Past illness Narrative* Problem Noted Date Diagnosed Date Resolved Date Sepsis 03/09/2020 03/13/2020 Obesity, Class II, BMI 35-39.9 12/06/2019 05/08/2020 documented as of this encounter (statuses as of 08/11/2023) [facility] History of Past illness Narrative* Problem Noted Date Diagnosed Date Resolved Date Sepsis 03/09/2020 03/13/2020 Obesity, Class II, BMI 35-39.9 12/06/2019 05/08/2020 documented as of this encounter (statuses as of 08/23/2023) [facility] History of Past illness Narrative* Problem Noted Date Diagnosed Date Resolved Date Sepsis 03/09/2020 03/13/2020 Obesity, Class II, BMI 35-39.9 12/06/2019 05/08/2020 documented as of this encounter (statuses as of 08/24/2023) [facility] History of Past illness Narrative* Problem Noted Date Diagnosed Date Resolved Date Sepsis 03/09/2020 03/13/2020 Obesity, Class II, BMI 35-39.9 12/06/2019 05/08/2020 documented as of this encounter (statuses as of 08/25/2023) [facility] Adenocarcinoma of head of pancreas [...] [facility]No assessment information availableK[facility] Work Phone: Evaluation note* Diagnosis Malignant neoplasm [...] head of pancreas [facility] 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 Malignant neoplasm of head of pancreas Neuropathy Mononeuritis of unspecified site [facility] Malignant neoplasm of head of pancreas (HCC) Malignant neoplasm of head of pancreas Neuropathy Mononeuritis of unspecified site [facility] 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 Malignant neoplasm of head of pancreas Leg swelling Swelling of limb Neuropathy Mononeuritis of unspecified site Acute cough Diabetes mellitus due to underlying condition with diabetic polyneuropathy, without long-term current use of insulin (HCC) Acute cough [facility] Swelling of limb Malignant neoplasm of head of pancreas (HCC) Malignant neoplasm of head of pancreas Neuropathy Mononeuritis of unspecified site Acute cough [facility] 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 Malignant neoplasm of head of pancreas Frequency of urination Urinary frequency Leg swelling Swelling of limb Acute cough Anemia, unspecified type [facility] Frequency of urination- Primary Urinary frequency Malignant neoplasm of head of pancreas (HCC) Malignant neoplasm of head of pancreas [facility] 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 Malignant neoplasm of head of pancreas [facility] Outpatient Procedure (Urgent) - Pending Review Specialty Diagnoses / Procedures Referred By Riaz jordan Referred To [facility] Diagnoses Leg swelling Procedures US LEG VEIN DVT [facility] DUP-SCAN XTR VEINS COMPLETE BILATERAL STUDY Greta Wetzel, ALEX [address] [place] [address] [place] [address] [facility] [place] [address] Referral ID Status Reason Start Date Expiration Date Visits Requested Visits Authorized [id number] Pending Review Auto-Generat ed Referral 10/03/2023 10/02/2024 1 1 [facility] Summary Purpose Family History Relationship Condition Age at Onset Recorded Date/T abdoul Not Specified No pertinent family history Unknown Advance Directives Documents on File Type Date 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 Hazardous [...] at 1230, Approx Total Volume: mL EXP: 04304/08/22 Hazardous Chemotherapy Drug: Use appropriate PPE. Antineoplastic [...] 1 dose, On Mon03/08/23 at 1430, EXP: 0603/10/23 Hazardous Chemotherapy Drug: Use appropriate PPE. Antineoplastic [...] COMPUTED TOMOGRAPHY THORAX W/CONTRAST Grace Bess MD [address] [place] [address] Imaging Referral ID Status Reason Start Date Expiration Date Visits Requested Visits Authorized [id number] Authorized Auto-Generat ed Referral 2 03/24/2023 1 1 Specialty Diagnoses / Procedures Referred By Contac t Referred To Contact Diagnoses Malignant neoplasm of head of pancreas (HCC) Procedures CONSULT TO MEDICAL GENETICS - CANCER MEDICAL GENETICS COUNSELING EACH 30 MINUTES Grace Bess MD [address] [place] [address] [place] [address] Referral ID Status Reason Start Date Expiration Date Visits Requested Visits Authorized [id number] Pending Review PCP Requested Referral Auto-Generate d Referral 2 02/22/2023 1 1 Specialty Diagnoses / Procedures Referred By Contac t Referred To Contact CT IMAGING Diagnoses Malignant neoplasm of head of pancreas (HCC) Procedures CT ABD/PEL W IVCON CT ABD & PELVIS W/CONTRAST Grace Bess MD [address] [place] [address] Imaging Referral ID Status Reason Start Date Expiration Date Visits Requested Visits Authorized [id number] Authorized Auto-Generat ed Referral 06/01/2022 06/10/2023 1 1 Referral ID Status Reason Start Date Expiration Date Visits Requested Visits Authorized [id number] Authorized Auto-Generat ed Referral 06/01/2022 06/10/2023 1 1 Referral ID Status Reason Start Date Expiration Date Visits Requested Visits Authorized [id number] Pending Review Auto-Generat ed Referral 08/03/2022 07/29/2023 1 1 Referral ID Status Reason Start Date Expiration Date Visits Requested Visits Authorized [id number] Pending Review Auto-Generat ed Referral 08/03/2022 07/29/2023 1 1 Referral ID Status Reason Start Date Expiration Date Visits Requested Visits Authorized [id number] Authorized Auto-Generat ed Referral 11/10/2022 10/29/2023 1 1 Referral ID Status Reason Start Date Expiration Date Visits Requested Visits Authorized [id number] Authorized Auto-Generat ed Referral 11/10/2022 10/29/2023 1 1 Specialty Diagnoses / Procedures Referred By Contac t Referred To Contact Endocrinology Diagnoses Malignant neoplasm of head of pancreas (HCC) Type 2 diabetes mellitus without complication, with long-term current use of insulin (HCC) Procedures CONSULT TO ENDOCRINOLOGY OFFICE/OUTPATIENT NEW HIGH MDM 60-74 MINUTES Greta Wetzel PA-C [address] [place] [address] [place] [address] Referral ID Status Reason Start Date Expiration Date Visits Requested Visits Authorized [id number] Authorized PCP Requested Referral 11/23/2022 11/23/2023 1 [...] COMPUTED TOMOGRAPHY THORAX W/CONTRAST Greta Wetzel PA-C [address] [place] [address] [place] [address] Ct Imaging Referral ID Status Reason Start Date Expiration Date Visits Requested Visits Authorized [id number] Pending Review Auto-Generat ed Referral 12/21/2022 01/20/2024 1 1 Specialty Diagnoses / Procedures Referred By Contac t Referred To Contact CT IMAGING Diagnoses Malignant neoplasm of head of pancreas (HCC) Procedures CT ABD/PEL W IVCON CT ABD & PELVIS W/CONTRAST Grace Bess MD [address] [place] [address] [place] [address] Referral ID Status Reason Start Date Expiration Date Visits Requested Visits Authorized [id number] Authorized Auto-Generat ed Referral 05/26/2023 06/03/2024 1 1 Specialty Diagnoses / Procedures Referred By Contac t Referred To Contact CT IMAGING Diagnoses Malignant neoplasm of head of pancreas (HCC) Procedures CT CHEST W IVCON DIAGNOSTIC COMPUTED TOMOGRAPHY THORAX W/CONTRAST Grace Bess MD [address] [place] [address] [place] [address] Referral ID Status Reason Start Date Expiration Date Visits Requested Visits Authorized [id number] Authorized Auto-Generat ed Referral 05/26/2023 06/03/2024 1 1 Referral ID Status Reason Start Date Expiration Date Visits Requested Visits Authorized [id number] Authorized Auto-Generat ed Referral 08/16/2023 08/31/2024 1 1 Referral ID Status Reason Start Date Expiration Date Visits Requested Visits Authorized [id number] Authorized Auto-Generat ed Referral 08/16/2023 08/31/2024 1 [...] section and content) DATE CREATED AUTHOR 12/12/2019 [facility] DATE CREATED AUTHOR AUTHOR'S ORGANIZ ATION 04/16/2020 [facility] DATE CREATED AUTHOR AUTHOR'S ORGANIZ ATION 02/19/2021 [facility] DATE CREATED AUTHOR AUTHOR'S ORGANIZ ATION 03/16/[address] [facility] [facility] DATE CREATED AUTHOR AUTHOR'S ORGANIZ ATION 06/24/2021 [facility] DATE CREATED AUTHOR AUTHOR'S ORGANIZ [place] [facility] [place] CREATED AUTHOR AUTHOR'S ORGANIZ ATION 04/14/2022 [facility] DATE CREATED AUTHOR AUTHOR'S ORGANIZ ATION 01/17/2023 [facility] DATE CREATED AUTHOR AUTHOR'S ORGANIZ ATION 04/29/2023 [facility] DATE CREATED AUTHOR AUTHOR'S ORGANIZ ATION 10/13/2023 [facility] Source Comments (unrecognize d section and content) In the event this informatio n is protected by the Federal Confidentiality of Alcohol and Drug Abuse Patient Records regulations: The Federal rules restrict any use of the information to criminally investigate or prosecute any alcohol or drug abuse patient.[facility] the event this information is protected by the Federal Confidentiality of Alcohol and Drug Abuse Patient Records regulations: The Federal rules restrict any use of the information to criminally investigate or prosecute any alcohol or drug abuse patient.[facility] HospitalIn the event this information is protected by the Federal Confidentiality of Alcohol and Drug Abuse Patient Records regulations: The Federal rules restrict any use of the information to criminally investigate or prosecute any alcohol or drug abuse patient.[facility] HospitalIn the event this information is protected by the Federal Confidentiality of Alcohol and Drug Abuse Patient Records regulations: The Federal rules restrict any use of the information to criminally investigate or prosecute any alcohol or drug abuse patient.[facility] HospitalIn the event this information is protected by the Federal Confidentiality of Alcohol and Drug Abuse Patient Records regulations: The Federal rules restrict any use of the information to criminally investigate or prosecute any alcohol or drug abuse patient.[facility] HospitalIn the event this information is protected by the Federal Confidentiality of Alcohol and Drug Abuse Patient Records regulations: The Federal rules restrict any use of the information to criminally investigate or prosecute any alcohol or drug abuse patient.[facility] HospitalIn the event this information is protected by the Federal Confidentiality of Alcohol and Drug Abuse Patient Records regulations: The Federal rules restrict any use of the information to criminally investigate or prosecute any alcohol or drug abuse patient.[facility] HospitalIn the event this information is protected by the Federal Confidentiality of Alcohol and Drug Abuse Patient Records regulations: The Federal rules restrict any use of the information to criminally investigate or prosecute any alcohol or drug abuse patient.[facility] HospitalIn the event this information is protected by the Federal Confidentiality of Alcohol and Drug Abuse Patient Records regulations: The Federal rules restrict any use of the information to criminally investigate or prosecute any alcohol or drug abuse patient.[facility] HospitalIn the event this information is protected by the Federal Confidentiality of Alcohol and Drug Abuse Patient Records regulations: The Federal rules restrict any use of the information to criminally investigate or prosecute any alcohol or drug abuse patient.[facility] HospitalIn the event this information is protected by the Federal Confidentiality of Alcohol and Drug Abuse Patient Records regulations: The Federal rules restrict any use of the information to criminally investigate or prosecute any alcohol or drug abuse patient.[facility] HospitalIn the event this information is protected by the Federal Confidentiality of Alcohol and Drug Abuse Patient Records regulations: The Federal rules restrict any use of the information to criminally investigate or prosecute any alcohol or drug abuse patient.[facility] HospitalIn the event this information is protected by the Federal Confidentiality of Alcohol and Drug Abuse Patient Records regulations: The Federal rules restrict any use of the information to criminally investigate or prosecute any alcohol or drug abuse patient.[facility] HospitalIn the event this information is protected by the Federal Confidentiality of Alcohol and Drug Abuse Patient Records regulations: The Federal rules restrict any use of the information to criminally investigate or prosecute any alcohol or drug abuse patient.[facility] HospitalIn the event this information is protected by the Federal Confidentiality of Alcohol and Drug Abuse Patient Records regulations: The Federal rules restrict any use of the information to criminally investigate or prosecute any alcohol or drug abuse patient.[facility] HospitalIn the event this information is protected by the Federal Confidentiality of Alcohol and Drug Abuse Patient Records regulations: The Federal rules restrict any use of the information to criminally investigate or prosecute any alcohol or drug abuse patient.[facility] HospitalIn the event this information is protected by the Federal Confidentiality of Alcohol and Drug Abuse Patient Records regulations: The Federal rules restrict any use of the information to criminally investigate or prosecute any alcohol or drug abuse patient.[facility] HospitalIn the event this information is protected by the Federal Confidentiality of Alcohol and Drug Abuse Patient Records regulations: The Federal rules restrict any use of the information to criminally investigate or prosecute any alcohol or drug abuse patient.[facility] HospitalIn the event this information is protected by the Federal Confidentiality of Alcohol and Drug Abuse Patient Records regulations: The Federal rules restrict any use of the information to criminally investigate or prosecute any alcohol or drug abuse patient.[facility] HospitalIn the event this information is protected by the Federal Confidentiality of Alcohol and Drug Abuse Patient Records regulations: The Federal rules restrict any use of the information to criminally investigate or prosecute any alcohol or drug abuse patient.[facility] HospitalIn the event this information is protected by the Federal Confidentiality of Alcohol and Drug Abuse Patient Records regulations: The Federal rules restrict any use of the information to criminally investigate or prosecute any alcohol or drug abuse patient.[facility] HospitalIn the event this information is protected by the Federal Confidentiality of Alcohol and Drug Abuse Patient Records regulations: The Federal rules restrict any use of the information to criminally investigate or prosecute any alcohol or drug abuse patient.[facility] HospitalIn the event this information is protected by the Federal Confidentiality of Alcohol and Drug Abuse Patient Records regulations: The Federal rules restrict any use of the information to criminally investigate or prosecute any alcohol or drug abuse patient.[facility] HospitalIn the event this information is protected by the Federal Confidentiality of Alcohol and Drug Abuse Patient Records regulations: The Federal rules restrict any use of the information to criminally investigate or prosecute any alcohol or drug abuse patient.[facility] HospitalIn the event this information is protected by the Federal Confidentiality of Alcohol and Drug Abuse Patient Records regulations: The Federal rules restrict any use of the information to criminally investigate or prosecute any alcohol or drug abuse patient.[facility] HospitalIn the event this information is protected by the Federal Confidentiality of Alcohol and Drug Abuse Patient Records regulations: The Federal rules restrict any use of the information to criminally investigate or prosecute any alcohol or drug abuse patient.[facility] HospitalIn the event this information is protected by the Federal Confidentiality of Alcohol and Drug Abuse Patient Records regulations: The Federal rules restrict any use of the information to criminally investigate or prosecute any alcohol or drug abuse patient.[facility] HospitalIn the event this information is protected by the Federal Confidentiality of Alcohol and Drug Abuse Patient Records regulations: The Federal rules restrict any use of the information to criminally investigate or prosecute any alcohol or drug abuse patient.[facility] HospitalIn the event this information is protected by the Federal Confidentiality of Alcohol and Drug Abuse Patient Records regulations: The Federal rules restrict any use of the information to criminally investigate or prosecute any alcohol or drug abuse patient.[facility] HospitalIn the event this information is protected by the Federal Confidentiality of Alcohol and Drug Abuse Patient Records regulations: The Federal rules restrict any use of the information to criminally investigate or prosecute any alcohol or drug abuse patient.[facility] HospitalIn the event this information is protected by the Federal Confidentiality of Alcohol and Drug Abuse Patient Records regulations: The Federal rules restrict any use of the information to criminally investigate or prosecute any alcohol or drug abuse patient.[facility] HospitalIn the event this information is protected by the Federal Confidentiality of Alcohol and Drug Abuse Patient Records regulations: The Federal rules restrict any use of the information to criminally investigate or prosecute any alcohol or drug abuse patient.[facility] HospitalIn the event this information is protected by the Federal Confidentiality of Alcohol and Drug Abuse Patient Records regulations: The Federal rules restrict any use of the information to criminally investigate or prosecute any alcohol or drug abuse patient.[facility] HospitalIn the event this information is protected by the Federal Confidentiality of Alcohol and Drug Abuse Patient Records regulations: The Federal rules restrict any use of the information to criminally investigate or prosecute any alcohol or drug abuse patient.[facility] the event this information is protected by the Federal Confidentiality of Alcohol and Drug Abuse Patient Records regulations: The Federal rules restrict any use of the information to criminally investigate or prosecute any alcohol or drug abuse patient.[facility] HospitalIn the event this information is protected by the Federal Confidentiality of Alcohol and Drug Abuse Patient Records regulations: The Federal rules restrict any use of the information to criminally investigate or prosecute any alcohol or drug abuse patient.[facility] HospitalIn the event this information is protected by the Federal Confidentiality of Alcohol and Drug Abuse Patient Records regulations: The Federal rules restrict any use of the information to criminally investigate or prosecute any alcohol or drug abuse patient.[facility] HospitalIn the event this information is protected by the Federal Confidentiality of Alcohol and Drug Abuse Patient Records regulations: The Federal rules restrict any use of the information to criminally investigate or prosecute any alcohol or drug abuse patient.[facility] HospitalIn the event this information is protected by the Federal Confidentiality of Alcohol and Drug Abuse Patient Records regulations: The Federal rules restrict any use of the information to criminally investigate or prosecute any alcohol or drug abuse patient.[facility] HospitalIn the event this information is protected by the Federal Confidentiality of Alcohol and Drug Abuse Patient Records regulations: The Federal rules restrict any use of the information to criminally investigate or prosecute any alcohol or drug abuse patient.[facility] HospitalIn the event this information is protected by the Federal Confidentiality of Alcohol and Drug Abuse Patient Records regulations: The Federal rules restrict any use of the information to criminally investigate or prosecute any alcohol or drug abuse patient.[facility] HospitalIn the event this information is protected by the Federal Confidentiality of Alcohol and Drug Abuse Patient Records regulations: The Federal rules restrict any use of the information to criminally investigate or prosecute any alcohol or drug abuse patient.[facility] HospitalIn the event this information is protected by the Federal Confidentiality of Alcohol and Drug Abuse Patient Records regulations: The Federal rules restrict any use of the information to criminally investigate or prosecute any alcohol or drug abuse patient.[facility] HospitalIn the event this information is protected by the Federal Confidentiality of Alcohol and Drug Abuse Patient Records regulations: The Federal rules restrict any use of the information to criminally investigate or prosecute any alcohol or drug abuse patient.[facility] HospitalIn the event this information is protected by the Federal Confidentiality of Alcohol and Drug Abuse Patient Records regulations: The Federal rules restrict any use of the information to criminally investigate or prosecute any alcohol or drug abuse patient.[facility] HospitalIn the event this information is protected by the Federal Confidentiality of Alcohol and Drug Abuse Patient Records regulations: The Federal rules restrict any use of the information to criminally investigate or prosecute any alcohol or drug abuse patient.[facility] HospitalIn the event this information is protected by the Federal Confidentiality of Alcohol and Drug Abuse Patient Records regulations: The Federal rules restrict any use of the information to criminally investigate or prosecute any alcohol or drug abuse patient.[facility] HospitalIn the event this information is protected by the Federal Confidentiality of Alcohol and Drug Abuse Patient Records regulations: The Federal rules restrict any use of the information to criminally investigate or prosecute any alcohol or drug abuse patient.[facility] HospitalIn the event this information is protected by the Federal Confidentiality of Alcohol and Drug Abuse Patient Records regulations: The Federal rules restrict any use of the information to criminally investigate or prosecute any alcohol or drug abuse patient.[facility] HospitalIn the event this information is protected by the Federal Confidentiality of Alcohol and Drug Abuse Patient Records regulations: The Federal rules restrict any use of the information to criminally investigate or prosecute any alcohol or drug abuse patient.[facility] HospitalIn the event this information is protected by the Federal Confidentiality of Alcohol and Drug Abuse Patient Records regulations: The Federal rules restrict any use of the information to criminally investigate or prosecute any alcohol or drug abuse patient.[facility] HospitalIn the event this information is protected by the Federal Confidentiality of Alcohol and Drug Abuse Patient Records regulations: The Federal rules restrict any use of the information to criminally investigate or prosecute any alcohol or drug abuse patient.[facility] HospitalIn the event this information is protected by the Federal Confidentiality of Alcohol and Drug Abuse Patient Records regulations: The Federal rules restrict any use of the information to criminally investigate or prosecute any alcohol or drug abuse patient.[facility] HospitalIn the event this information is protected by the Federal Confidentiality of Alcohol and Drug Abuse Patient Records regulations: The Federal rules restrict any use of the information to criminally investigate or prosecute any alcohol or drug abuse patient.[facility] HospitalIn the event this information is protected by the Federal Confidentiality of Alcohol and Drug Abuse Patient Records regulations: The Federal rules restrict any use of the information to criminally investigate or prosecute any alcohol or drug abuse patient.[facility] HospitalIn the event this information is protected by the Federal Confidentiality of Alcohol and Drug Abuse Patient Records regulations: The Federal rules restrict any use of the information to criminally investigate or prosecute any alcohol or drug abuse patient.[facility] HospitalIn the event this information is protected by the Federal Confidentiality of Alcohol and Drug Abuse Patient Records regulations: The Federal rules restrict any use of the information to criminally investigate or prosecute any alcohol or drug abuse patient.[facility] HospitalIn the event this information is protected by the Federal Confidentiality of Alcohol and Drug Abuse Patient Records regulations: The Federal rules restrict any use of the information to criminally investigate or prosecute any alcohol or drug abuse patient.[facility] HospitalIn the event this information is protected by the Federal Confidentiality of Alcohol and Drug Abuse Patient Records regulations: The Federal rules restrict any use of the information to criminally investigate or prosecute any alcohol or drug abuse patient.[facility] HospitalIn the event this information is protected by the Federal Confidentiality of Alcohol and Drug Abuse Patient Records regulations: The Federal rules restrict any use of the information to criminally investigate or prosecute any alcohol or drug abuse patient.[facility] HospitalIn the event this information is protected by the Federal Confidentiality of Alcohol and Drug Abuse Patient Records regulations: The Federal rules restrict any use of the information to criminally investigate or prosecute any alcohol or drug abuse patient.[facility] HospitalIn the event this information is protected by the Federal Confidentiality of Alcohol and Drug Abuse Patient Records regulations: The Federal rules restrict any use of the information to criminally investigate or prosecute any alcohol or drug abuse patient.[facility] HospitalIn the event this information is protected by the Federal Confidentiality of Alcohol and Drug Abuse Patient Records regulations: The Federal rules restrict any use of the information to criminally investigate or prosecute any alcohol or drug abuse patient.[facility] HospitalIn the event this information is protected by the Federal Confidentiality of Alcohol and Drug Abuse Patient Records regulations: The Federal rules restrict any use of the information to criminally investigate or prosecute any alcohol or drug abuse patient.[facility] HospitalIn the event this information is protected by the Federal Confidentiality of Alcohol and Drug Abuse Patient Records regulations: The Federal rules restrict any use of the information to criminally investigate or prosecute any alcohol or drug abuse patient.[facility] HospitalIn the event this information is protected by the Federal Confidentiality of Alcohol and Drug Abuse Patient Records regulations: The Federal rules restrict any use of the information to criminally investigate or prosecute any alcohol or drug abuse patient.[facility] HospitalIn the event this information is protected by the Federal Confidentiality of Alcohol and Drug Abuse Patient Records regulations: The Federal rules restrict any use of the information to criminally investigate or prosecute any alcohol or drug abuse patient.[facility] HospitalIn the event this information is protected by the Federal Confidentiality of Alcohol and Drug Abuse Patient Records regulations: The Federal rules restrict any use of the information to criminally investigate or prosecute any alcohol or drug abuse patient.[facility] HospitalIn the event this information is protected by the Federal Confidentiality of Alcohol and Drug Abuse Patient Records regulations: The Federal rules restrict any use of the information to criminally investigate or prosecute any alcohol or drug abuse patient.[facility] HospitalIn the event this information is protected by the Federal Confidentiality of Alcohol and Drug Abuse Patient Records regulations: The Federal rules restrict any use of the information to criminally investigate or prosecute any alcohol or drug abuse patient.[facility] HospitalIn the event this information is protected by the Federal Confidentiality of Alcohol and Drug Abuse Patient Records regulations: The Federal rules restrict any use of the information to criminally investigate or prosecute any alcohol or drug abuse patient.[facility] HospitalIn the event this information is protected by the Federal Confidentiality of Alcohol and Drug Abuse Patient Records regulations: The Federal rules restrict any use of the information to criminally investigate or prosecute any alcohol or drug abuse patient.[facility] HospitalIn the event this information is protected by the Federal Confidentiality of Alcohol and Drug Abuse Patient Records regulations: The Federal rules restrict any use of the information to criminally investigate or prosecute any alcohol or drug abuse patient.[facility] HospitalIn the event this information is protected by the Federal Confidentiality of Alcohol and Drug Abuse Patient Records regulations: The Federal rules restrict any use of the information to criminally investigate or prosecute any alcohol or drug abuse patient.[facility] HospitalIn the event this information is protected by the Federal Confidentiality of Alcohol and Drug Abuse Patient Records regulations: The Federal rules restrict any use of the information to criminally investigate or prosecute any alcohol or drug abuse patient.[facility] HospitalIn the event this information is protected by the Federal Confidentiality of Alcohol and Drug Abuse Patient Records regulations: The Federal rules restrict any use of the information to criminally investigate or prosecute any alcohol or drug abuse patient.[facility] HospitalIn the event this information is protected by the Federal Confidentiality of Alcohol and Drug Abuse Patient Records regulations: The Federal rules restrict any use of the information to criminally investigate or prosecute any alcohol or drug abuse patient.[facility] HospitalIn the event this information is protected by the Federal Confidentiality of Alcohol and Drug Abuse Patient Records regulations: The Federal rules restrict any use of the information to criminally investigate or prosecute any alcohol or drug abuse patient.[facility] HospitalIn the event this information is protected by the Federal Confidentiality of Alcohol and Drug Abuse Patient Records regulations: The Federal rules restrict any use of the information to criminally investigate or prosecute any alcohol or drug abuse patient.[facility] HospitalIn the event this information is protected by the Federal Confidentiality of Alcohol and Drug Abuse Patient Records regulations: The Federal rules restrict any use of the information to criminally investigate or prosecute any alcohol or drug abuse patient.[facility] HospitalIn the event this information is protected by the Federal Confidentiality of Alcohol and Drug Abuse Patient Records regulations: The Federal rules restrict any use of the information to criminally investigate or prosecute any alcohol or drug abuse patient.[facility] HospitalIn the event this information is protected by the Federal Confidentiality of Alcohol and Drug Abuse Patient Records regulations: The Federal rules restrict any use of the information to criminally investigate or prosecute any alcohol or drug abuse patient.[facility] HospitalIn the event this information is protected by the Federal Confidentiality of Alcohol and Drug Abuse Patient Records regulations: The Federal rules restrict any use of the information to criminally investigate or prosecute any alcohol or drug abuse patient.[facility] HospitalIn the event this information is protected by the Federal Confidentiality of Alcohol and Drug Abuse Patient Records regulations: The Federal rules restrict any use of the information to criminally investigate or prosecute any alcohol or drug abuse patient.[facility] ClinicIn the event this information is protected by the Federal Confidentiality of Alcohol and Drug Abuse Patient Records regulations: The Federal rules restrict any use of the information to criminally investigate or prosecute any alcohol or drug abuse patient.[facility] HospitalIn the event this information is protected by the Federal Confidentiality of Alcohol and Drug Abuse Patient Records regulations: The Federal rules restrict any use of the information to criminally investigate or prosecute any alcohol or drug abuse patient.[facility] HospitalIn the event this information is protected by the Federal Confidentiality of Alcohol and Drug Abuse Patient Records regulations: The Federal rules restrict any use of the information to criminally investigate or prosecute any alcohol or drug abuse patient.[facility] HospitalIn the event this information is protected by the Federal Confidentiality of Alcohol and Drug Abuse Patient Records regulations: The Federal rules restrict any use of the information to criminally investigate or prosecute any alcohol or drug abuse patient.[facility] HospitalIn the event this information is protected by the Federal Confidentiality of Alcohol and Drug Abuse Patient Records regulations: The Federal rules restrict any use of the information to criminally investigate or prosecute any alcohol or drug abuse patient.[facility] HospitalIn the event this information is protected by the Federal Confidentiality of Alcohol and Drug Abuse Patient Records regulations: The Federal rules restrict any use of the information to criminally investigate or prosecute any alcohol or drug abuse patient.[facility] HospitalIn the event this information is protected by the Federal Confidentiality of Alcohol and Drug Abuse Patient Records regulations: The Federal rules restrict any use of the information to criminally investigate or prosecute any alcohol or drug abuse patient.[facility] HospitalIn the event this information is protected by the Federal Confidentiality of Alcohol and Drug Abuse Patient Records regulations: The Federal rules restrict any use of the information to criminally investigate or prosecute any alcohol or drug abuse patient.[facility] HospitalIn the event this information is protected by the Federal Confidentiality of Alcohol and Drug Abuse Patient Records regulations: The Federal rules restrict any use of the information to criminally investigate or prosecute any alcohol or drug abuse patient.[facility] HospitalIn the event this information is protected by the Federal Confidentiality of Alcohol and Drug Abuse Patient Records regulations: The Federal rules restrict any use of the information to criminally investigate or prosecute any alcohol or drug abuse patient.[facility] HospitalIn the event this information is protected by the Federal Confidentiality of Alcohol and Drug Abuse Patient Records regulations: The Federal rules restrict any use of the information to criminally investigate or prosecute any alcohol or drug abuse patient.[facility] HospitalIn the event this information is protected by the Federal Confidentiality of Alcohol and Drug Abuse Patient Records regulations: The Federal rules restrict any use of the information to criminally investigate or prosecute any alcohol or drug abuse patient.[facility] HospitalIn the event this information is protected by the Federal Confidentiality of Alcohol and Drug Abuse Patient Records regulations: The Federal rules restrict any use of the information to criminally investigate or prosecute any alcohol or drug abuse patient.[facility] HospitalIn the event this information is protected by the Federal Confidentiality of Alcohol and Drug Abuse Patient Records regulations: The Federal rules restrict any use of the information to criminally investigate or prosecute any alcohol or drug abuse patient.[facility] HospitalIn the event this information is protected by the Federal Confidentiality of Alcohol and Drug Abuse Patient Records regulations: The Federal rules restrict any use of the information to criminally investigate or prosecute any alcohol or drug abuse patient.[facility] HospitalIn the event this information is protected by the Federal Confidentiality of Alcohol and Drug Abuse Patient Records regulations: The Federal rules restrict any use of the information to criminally investigate or prosecute any alcohol or drug abuse patient.[facility] HospitalIn the event this information is protected by the Federal Confidentiality of Alcohol and Drug Abuse Patient Records regulations: The Federal rules restrict any use of the information to criminally investigate or prosecute any alcohol or drug abuse patient.[facility] HospitalIn the event this information is protected by the Federal Confidentiality of Alcohol and Drug Abuse Patient Records regulations: The Federal rules restrict any use of the information to criminally investigate or prosecute any alcohol or drug abuse patient.[facility] HospitalIn the event this information is protected by the Federal Confidentiality of Alcohol and Drug Abuse Patient Records regulations: The Federal rules restrict any use of the information to criminally investigate or prosecute any alcohol or drug abuse patient.[facility] HospitalIn the event this information is protected by the Federal Confidentiality of Alcohol and Drug Abuse Patient Records regulations: The Federal rules restrict any use of the information to criminally investigate or prosecute any alcohol or drug abuse patient.[facility] HospitalIn the event this information is protected by the Federal Confidentiality of Alcohol and Drug Abuse Patient Records regulations: The Federal rules restrict any use of the information to criminally investigate or prosecute any alcohol or drug abuse patient.[facility] HospitalIn the event this information is protected by the Federal Confidentiality of Alcohol and Drug Abuse Patient Records regulations: The Federal rules restrict any use of the information to criminally investigate or prosecute any alcohol or drug abuse patient.[facility] HospitalIn the event this information is protected by the Federal Confidentiality of Alcohol and Drug Abuse Patient Records regulations: The Federal rules restrict any use of the information to criminally investigate or prosecute any alcohol or drug abuse patient.[facility] HospitalIn the event this information is protected by the Federal Confidentiality of Alcohol and Drug Abuse Patient Records regulations: The Federal rules restrict any use of the information to criminally investigate or prosecute any alcohol or drug abuse patient.[facility] HospitalIn the event this information is protected by the Federal Confidentiality of Alcohol and Drug Abuse Patient Records regulations: The Federal rules restrict any use of the information to criminally investigate or prosecute any alcohol or drug abuse patient.[facility] HospitalIn the event this information is protected by the Federal Confidentiality of Alcohol and Drug Abuse Patient Records regulations: The Federal rules restrict any use of the information to criminally investigate or prosecute any alcohol or drug abuse patient.[facility] HospitalIn the event this information is protected by the Federal Confidentiality of Alcohol and Drug Abuse Patient Records regulations: The Federal rules restrict any use of the information to criminally investigate or prosecute any alcohol or drug abuse patient.[facility] HospitalIn the event this information is protected by the Federal Confidentiality of Alcohol and Drug Abuse Patient Records regulations: The Federal rules restrict any use of the information to criminally investigate or prosecute any alcohol or drug abuse patient.[facility] HospitalIn the event this information is protected by the Federal Confidentiality of Alcohol and Drug Abuse Patient Records regulations: The Federal rules restrict any use of the information to criminally investigate or prosecute any alcohol or drug abuse patient.[facility] HospitalIn the event this information is protected by the Federal Confidentiality of Alcohol and Drug Abuse Patient Records regulations: The Federal rules restrict any use of the information to criminally investigate or prosecute any alcohol or drug abuse patient.[facility] HospitalIn the event this information is protected by the Federal Confidentiality of Alcohol and Drug Abuse Patient Records regulations: The Federal rules restrict any use of the information to criminally investigate or prosecute any alcohol or drug abuse patient.[facility] HospitalIn the event this information is protected by the Federal Confidentiality of Alcohol and Drug Abuse Patient Records regulations: The Federal rules restrict any use of the information to criminally investigate or prosecute any alcohol or drug abuse patient.[facility] HospitalIn the event this information is protected by the Federal Confidentiality of Alcohol and Drug Abuse Patient Records regulations: The Federal rules restrict any use of the information to criminally investigate or prosecute any alcohol or drug abuse patient.[facility] HospitalIn the event this information is protected by the Federal Confidentiality of Alcohol and Drug Abuse Patient Records regulations: The Federal rules restrict any use of the information to criminally investigate or prosecute any alcohol or drug abuse patient.[facility] HospitalIn the event this information is protected by the Federal Confidentiality of Alcohol and Drug Abuse Patient Records regulations: The Federal rules restrict any use of the information to criminally investigate or prosecute any alcohol or drug abuse patient.[facility] HospitalIn the event this information is protected by the Federal Confidentiality of Alcohol and Drug Abuse Patient Records regulations: The Federal rules restrict any use of the information to criminally investigate or prosecute any alcohol or drug abuse patient.[facility] HospitalIn the event this information is protected by the Federal Confidentiality of Alcohol and Drug Abuse Patient Records regulations: The Federal rules restrict any use of the information to criminally investigate or prosecute any alcohol or drug abuse patient.[facility] HospitalIn the event this information is protected by the Federal Confidentiality of Alcohol and Drug Abuse Patient Records regulations: The Federal rules restrict any use of the information to criminally investigate or prosecute any alcohol or drug abuse patient.[facility] HospitalIn the event this information is protected by the Federal Confidentiality of Alcohol and Drug Abuse Patient Records regulations: The Federal rules restrict any use of the information to criminally investigate or prosecute any alcohol or drug abuse patient.[facility] HospitalIn the event this information is protected by the Federal Confidentiality of Alcohol and Drug Abuse Patient Records regulations: The Federal rules restrict any use of the information to criminally investigate or prosecute any alcohol or drug abuse patient.[facility] HospitalIn the event this information is protected by the Federal Confidentiality of Alcohol and Drug Abuse Patient Records regulations: The Federal rules restrict any use of the information to criminally investigate or prosecute any alcohol or drug abuse patient.[facility] HospitalIn the event this information is protected by the Federal Confidentiality of Alcohol and Drug Abuse Patient Records regulations: The Federal rules restrict any use of the information to criminally investigate or prosecute any alcohol or drug abuse patient.[facility] HospitalIn the event this information is protected by the Federal Confidentiality of Alcohol and Drug Abuse Patient Records regulations: The Federal rules restrict any use of the information to criminally investigate or prosecute any alcohol or drug abuse patient.[facility] HospitalIn the event this information is protected by the Federal Confidentiality of Alcohol and Drug Abuse Patient Records regulations: The Federal rules restrict any use of the information to criminally investigate or prosecute any alcohol or drug abuse patient.[facility] HospitalIn the event this information is protected by the Federal Confidentiality of Alcohol and Drug Abuse Patient Records regulations: The Federal rules restrict any use of the information to criminally investigate or prosecute any alcohol or drug abuse patient.[facility] HospitalIn the event this information is protected by the Federal Confidentiality of Alcohol and Drug Abuse Patient Records regulations: The Federal rules restrict any use of the information to criminally investigate or prosecute any alcohol or drug abuse patient.[facility] HospitalIn the event this information is protected by the Federal Confidentiality of Alcohol and Drug Abuse Patient Records regulations: The Federal rules restrict any use of the information to criminally investigate or prosecute any alcohol or drug abuse patient.[facility] Reason for Visit (unrecogniz ed section and [...] Comments Benefits Investigation Reason Comments Care Coordination Digital Product Specialist referral Reason Comments Nutrition Assessment Reason Comments Care Coordination Antiemetics transfer red to [facility] in [place] Reason Comments Care Coordination Follow up call Reason Comments Care Coordination C1D1 treatment follo w up call Reason Comments Pancreatic Cancer 1 week follow Reason Comments Pancreatic Cancer Reason Comments Nutrition Counseling Specialty Diagnoses / Procedures Referred By Contac t Referred To Contact Diagnoses Malignant neoplasm of head of pancreas (HCC) Grace Bess MD [address] [place] [address] Ulis Miguel Treat [address] [place] [address] Referral ID Status Reason Start Date Expiration Date V isits Requested Visits Authorized [id number] Authorized 02/22/2022 05/23/2022 99 99 Reason Comments [...] draw Specialty Diagnoses / Procedures Referred By Contac t Referred To Contact Hematology / HEMATOLOGY/ONCOLOGY Diagnoses 6 week follow up lab port draw 09/26- R/S From 09/30 Called Spoke With Pt Regarding This Appt 09/07-R/S From 09/15 Called Spoke With Pt Spouse She Req This Date/Time Procedures LAB/PORT Grace Bess MD [address] [place] [address] Luis Miguel Delgado [address] [place] [address] Referral ID Status Reason Start Date Expiration Date V isits Requested Visits Authorized [id number] Authorized 09/28/2022 05/21/2023 99 99 Reason Comments [...] This Date/Time Procedures LAB/PORT Grace Bess MD [address] [place] [id number] Luis Miguel Rosenbergusky [address] [place] [address] Reason Comments CVAD Access Reason Comments Care [...] Expiration Date V isits Requested Visits Authorized [id number] Authorized 05/24/2023 08/22/2023 99 99 Reason Comments Care Coordination Appointment cancella tion Reason Comments Care Coordination cough Reason Comments Lab Orders Reason Comments Pancreatic Cancer 2 week follow up Reason Comments Radiology US Reason Comments Care Coordination CXR results Care Teams (unrecognized sec tion and content) Natural Gas Technician Relationship Specialty Start Date End Date Giovanni Salinas II [address] [place] [address] PCP - General Internal Medicine 11/29/19 Cali Rosamaribel Firas [address] [place] [address] Endocrinology 05/08/20 Natural Gas Technician Relationship Specialty Start Date End Date Giovanni Salinas Raul II [address] [place] [address] PCP - General Internal Medicine 11/29/19 Cali Rosamaribel Firas [address] [place] [address] Endocrinology 05/08/20 Natural Gas Technician Relationship Specialty Start Date End Date Brad Giovanni Raul II [address] [place] [address] PCP - General Internal Medicine 11/29/19 Cali Rosamaribel Firas [address] [place] [address] Endocrinology 05/08/20 Natural Gas Technician Relationship Specialty Start Date End Date Giovanni Salinas Raul II [address] [place] [address] PCP - General Internal Medicine 11/29/19 Cali Rosamaribel Firjanel [address] [place] [address] Endocrinology 05/08/20 Natural Gas Technician Relationship Specialty Start Date End Date Brad Giovanni Raul II [address] [place] [address] PCP - General Internal Medicine 11/29/19 Cali Mehreenailyn Firas [address] [place] [address] Endocrinology 05/08/20 Natural Gas Technician Relationship Specialty Start Date End Date Giovanni Salinas II [address] [place] [address] PCP - General Internal Medicine 11/29/19 César Leiva Firas [address] [place] [address] Endocrinology 05/08/20 Natural Gas Technician Relationship Specialty Start Date End Date Giovanni Salinas II [address] [place] [address] PCP - General Internal Medicine 11/29/19 César Leiva Firas [address] [place] [address] Endocrinology 05/08/20 Natural Gas Technician Relationship Specialty Start Date End Date Giovanni Salinas II [address] [place] [address] PCP - General Internal Medicine 11/29/19 Cali Mehreenailyn Firjanel [address] [place] [address] Endocrinology 05/08/20 Natural Gas Technician Relationship Specialty Start Date End Date Giovanni Salinas II [address] [place] [address] PCP - General Internal Medicine 11/29/19 César Leiva Firjanel [address] [place] [address] Endocrinology 05/08/20 Josephine Salomon RN [address] [place] [address] [place] [address] Specialty Pipe Puller Hematology/Oncology 03/04/22 Grace Bess MD [address] [place] [address] Physician Hematology/Oncology 03/04/22 Greta Wetzel PA-C [address] [facility] [place] [address] Physician Physical Education Aide Hematology/Oncology 03/04/22 Natural Gas Technician Relationship Specialty Start Date End Date Giovanni Salians II [address] [place] [address] PCP - General Internal Medicine 11/29/19 César Leiva [address] [place] [address] Endocrinology 05/08/20 Josephine Salomon RN [address] [facility] [place] [address] Specialty Pipe Puller Hematology/Oncology 03/04/22 Grace Bess MD [address] [facility] [place] [address] Physician Hematology/Oncology 03/04/22 Greta Wetzel PA-C [address] [facility] [place] [address] Physician Physical Education Aide Hematology/Oncology 03/04/22 Natural Gas Technician Relationship Specialty Start Date End Date Giovanni Salinas II [address] [place] [address] PCP - General Internal Medicine 11/29/19 César Leiva [address] [place] [address] Endocrinology 05/08/20 Josephine Salomon RN [address] [facility] [place] [address] Specialty Pipe Puller Hematology/Oncology 03/04/22 Grace Bess MD [address] [place] [address] Physician Hematology/Oncology 03/04/22 Greta Wetzel PA-C [address] [facility] [place] [address] Physician Physical Education Aide Hematology/Oncology 03/04/22 Natural Gas Technician Relationship Specialty Start Date End Date Giovanni Salinas II [address] [place] [address] PCP - General Internal Medicine 11/29/19 César Leiva [address] [place] [address] Endocrinology 05/08/20 Josephine Salomon RN [address] [facility] [place] [address] Specialty Pipe Puller Hematology/Oncology 03/04/22 Grace Bess MD [address] [place] [address] Physician Hematology/Oncology 03/04/22 Greta Wetzel PA-C [address] [facility] [place] [address] Physician Physical Education Aide Hematology/Oncology 03/04/22 Natural Gas Technician Relationship Specialty Start Date End Date Giovanni Salinas II [address] [place] [address] PCP - General Internal Medicine 11/29/19 César Leiva [address] [place] [address] Endocrinology 05/08/20 Josephine Salomon RN [address] [facility] [place] [address] Specialty Pipe Puller Hematology/Oncology 03/04/22 Grace Bess MD [address] [place] [address] Physician Hematology/Oncology 03/04/22 Greta Wetzel, PALaurenC [address] [place] [address] [place] [address] Physician Physical Education Aide Hematology/Oncology 03/04/22 Natural Gas Technician Relationship Specialty Start Date End Date Giovanni Salinas II [address] [place] [address] PCP - General Internal Medicine 11/29/19 César Leiva Firas [address] [place] [address] Endocrinology 05/08/20 Josephine Salomon RN [address] [facility] [place] [address] Specialty Pipe Puller Hematology/Oncology 03/04/22 Grace Bess MD [address] [place] [address] Physician Hematology/Oncology 03/04/22 Greta Wetzel PA-C [address] [place] [address] [place] [address] Physician Physical Education Aide Hematology/Oncology 03/04/22 Natural Gas Technician Relationship Specialty Start Date End Date Giovanni Salinas II [address] [place] [address] PCP - General Internal Medicine 11/29/19 César Leiva Firas [address] [place] [address] Endocrinology 05/08/20 Josephine Salomon RN [address] [facility] [place] [address] Specialty Pipe Puller Hematology/Oncology 03/04/22 Grace Bess MD [address] [place] [address] Physician Hematology/Oncology 03/04/22 Greta Wetzel PA-C [address] [facility] [place] [address] Physician Physical Education Aide Hematology/Oncology 03/04/22 Natural Gas Technician Relationship Specialty Start Date End Date Giovanni Salinas II [address] [place] [address] PCP - General Internal Medicine 11/29/19 César Leiva [address] [place] [address] Endocrinology 05/08/20 Josephine Salomon RN [address] [facility] [place] [address] Specialty Pipe Puller Hematology/Oncology 03/04/22 Grace Bess MD [address] [place] [address] Physician Hematology/Oncology 03/04/22 Greta Wetzel PA-C [address] [facility] [place] [address] Physician Physical Education Aide Hematology/Oncology 03/04/22 Natural Gas Technician Relationship Specialty Start Date End Date Giovanni Salinas II [address] [place] [address] PCP - General Internal Medicine 11/29/19 César Leiva Firjanel [address] [place] [address] Endocrinology 05/08/20 Josephine Salomon RN [address] [facility] [place] [address] Specialty Pipe Puller Hematology/Oncology 03/04/22 Grace Bess MD [address] [place] [address] Physician Hematology/Oncology 03/04/22 Greta Wetzel PA-C [address] [facility] [place] [address] Physician Physical Education Aide Hematology/Oncology 03/04/22 Natural Gas Technician Relationship Specialty Start Date End Date Giovanni Salinas II [address] [place] [address] PCP - General Internal Medicine 11/29/19 César Leiva [address] [place] [address] Endocrinology 05/08/20 Josephine Salomon RN [address] [facility] [place] [address] Specialty Pipe Puller Hematology/Oncology 03/04/22 Grace Bess MD [address] [place] [address] Physician Hematology/Oncology 03/04/22 Greta Wetzle PA-C [address] [facility] [place] [address] Physician Physical Education Aide Hematology/Oncology 03/04/22 Natural Gas Technician Relationship Specialty Start Date End Date Giovanni Salinas II [address] [place] [address] PCP - General Internal Medicine 11/29/19 César Leiva Firjanel [address] [place] [address] Endocrinology 05/08/20 Josephine Salomon RN [address] [facility] [place] [address] Specialty Pipe Puller Hematology/Oncology 03/04/22 Grace Bess MD [address] [place] [address] Physician Hematology/Oncology 03/04/22 Greta Wetzel PA-C [address] [facility] [place] [address] Physician Physical Education Aide Hematology/Oncology 03/04/22 Natural Gas Technician Relationship Specialty Start Date End Date Giovanni Salinas II [address] [place] [address] PCP - General Internal Medicine 11/29/19 César Leivaas [address] [place] [address] Endocrinology 05/08/20 Josephine Salomon RN [address] [facility] [place] [address] Specialty Pipe Puller Hematology/Oncology 03/04/22 Grace Bess MD [address] [place] [address] Physician Hematology/Oncology 03/04/22 Greta Wetzel PALaurenC [address] [facility] [place] [address] Physician Physical Education Aide Hematology/Oncology 03/04/22 Natural Gas Technician Relationship Specialty Start Date End Date Giovanni Salinas II [address] [place] [address] PCP - General Internal Medicine 11/29/19 César Leiva Firas [address] [place] [address] Endocrinology 05/08/20 Josephine Salomon RN [address] [facility] [place] [address] Specialty Pipe Puller Hematology/Oncology 03/04/22 Grace Bess MD [address] [place] [address] Physician Hematology/Oncology 03/04/22 Greta Wetzel, PALaurenC [address] [facility] [place] [address] Physician Physical Education Aide Hematology/Oncology 03/04/22 Natural Gas Technician Relationship Specialty Start Date End Date Giovanni Salinas II [address] [place] [address] PCP - General Internal Medicine 11/29/19 César Leiva Firas [address] [place] [address] Endocrinology 05/08/20 Josephine Salomon RN [address] [facility] [place] [address] Specialty Pipe Puller Hematology/Oncology 03/04/22 Grace Bess MD [address] [place] [address] Physician Hematology/Oncology 03/04/22 Greta Wetzel PALaurenC [address] [facility] [place] [address] Physician Physical Education Aide Hematology/Oncology 03/04/22 Natural Gas Technician Relationship Specialty Start Date End Date Giovanni Salinas II [address] [place] [address] PCP - General Internal Medicine 11/29/19 Mehreen Leivamad [facility] [address] [place] [address] Endocrinology 05/08/20 Josephine Salomon, RN [address] [facility] [place] [address] Specialty Pipe Puller Hematology/Oncology 03/04/22 Grace Bess MD [address] [place] [address] Physician Hematology/Oncology 03/04/22 Greta Wetzel PA-C [address] [facility] [place] [address] Physician Physical Education Aide Hematology/Oncology 03/04/22 Natural Gas Technician Relationship Specialty Start Date End Date Giovanni Salinas II [address] [facility] [address] [place] [address] PCP - General Internal Medicine 11/29/19 Cali Rosamaribel Winchester [address] [place] [address] Endocrinology 05/08/20 Josephine Salomon, RN [address] [facility] [place] [address] Specialty Pipe Puller Hematology/Oncology 03/04/22 Grace Bess MD [address] [place] [address] Physician Hematology/Oncology 03/04/22 Greta Wetzel PA-C [address] [facility] [place] [address] Physician Physical Education Aide Hematology/Oncology 03/04/22 Natural Gas Technician Relationship Specialty Start Date End Date Giovanni Salinas II [address] [place] [address] PCP - General Internal Medicine 11/29/19 César Leiva [address] [place] [address] Endocrinology 05/08/20 Josephine Salomon, RN [address] [facility] [place] [address] Specialty Pipe Puller Hematology/Oncology 03/04/22 Grace Bess MD [address] [place] [address] Physician Hematology/Oncology 03/04/22 Greta Wetzel PA-C [address] [facility] [place] [address] Physician Physical Education Aide Hematology/Oncology 03/04/22 Natural Gas Technician Relationship Specialty Start Date End Date Giovanni Salinas II [address] [facility] [address] [place] [address] PCP - General Internal Medicine 11/29/19 César Leiva MD [address] [place] [address] Endocrinology 05/08/20 Josephine Salomon RN [address] [facility] [place] [address] Specialty Pipe Puller Hematology/Oncology 03/04/22 Grace Bess MD [address] [place] [address] Physician Hematology/Oncology 03/04/22 Greta Wetzel PA-C [address] [facility] [place] [address] Physician Physical Education Aide Hematology/Oncology 03/04/22 Natural Gas Technician Relationship Specialty Start Date End Date Giovanni Salinas II [address] [facility] [address] [place] [address] PCP - General Internal Medicine 11/29/19 César Leiva MD [address] [place] [address] Endocrinology 05/08/20 Josephine Salomon RN [address] [facility] [place] [address] Specialty Pipe Puller Hematology/Oncology 03/04/22 Grace Bess MD [address] [place] [address] Physician Hematology/Oncology 03/04/22 Greta Wetzel PA-C [address] [facility] [place] [address] Physician Physical Education Aide Hematology/Oncology 03/04/22 Natural Gas Technician Relationship Specialty Start Date End Date Giovanni Salinas II [address] [place] [address] PCP - General Internal Medicine 11/29/19 César Leiva MD [address] [place] [address] Endocrinology 05/08/20 Josephine Salomon RN [address] [facility] [place] [address] Specialty Pipe Puller Hematology/Oncology 03/04/22 Grace Bess MD [address] [place] [address] Physician Hematology/Oncology 03/04/22 Greta Wetzel PA-C [address] [facility] [place] [address] Physician Physical Education Aide Hematology/Oncology 03/04/22 Natural Gas Technician Relationship Specialty Start Date End Date Giovanni Salinas II [address] [place] [address] PCP - General Internal Medicine 11/29/19 César Leiva MD [address] [facility] [place] [address] Endocrinology 05/08/20 Josephine Salomon, LUIS ANTONIO [address] [facility] [place] [address] Specialty Pipe Puller Hematology/Oncology 03/04/22 Grace Bess MD [address] [place] [address] Physician Hematology/Oncology 03/04/22 Greta Wetzel PALaurenC [address] [facility] [place] [address] Physician Physical Education Aide Hematology/Oncology 03/04/22 Natural Gas Technician Relationship Specialty Start Date End Date Giovanni Salinas II [address] [facility] [address] [place] [address] PCP - General Internal Medicine 11/29/19 César Leiva MD [address] [place] [address] Endocrinology 05/08/20 Josephine Salomon RN [address] [facility] [place] [address] Specialty Pipe Puller Hematology/Oncology 03/04/22 Grace Bess MD [address] [facility] [place] [address] Physician Hematology/Oncology 03/04/22 Greta Wetzel PALaurenC [address] [facility] [place] [address] Physician Physical Education Aide Hematology/Oncology 03/04/22 Natural Gas Technician Relationship Specialty Start Date End Date Giovanni Salinas II [address] [place] [address] PCP - General Internal Medicine 11/29/19 César Leiva MD [address] [place] [address] Endocrinology 05/08/20 Josephine Salomon RN [address] [facility] [facility] [place] [address] Specialty Pipe Puller Hematology/Oncology 03/04/22 Grace Bess MD [address] [place] [address] Physician Hematology/Oncology 03/04/22 Greta Wetzel, PALaurenC [address] [facility] [facility] [place] [address] Physician Physical Education Aide Hematology/Oncology 03/04/22 Natural Gas Technician Relationship Specialty Start Date End Date Brad Giovanni B II [address] [place] [address] PCP - General Internal Medicine 11/29/19 César Leiva MD [address] [place] [address] Endocrinology 05/08/20 Josephine Salomon RN [address] [facility] [facility] [place] [address] Specialty Pipe Puller Hematology/Oncology 03/04/22 Grace Bess MD [address] [place] [address] Physician Hematology/Oncology 03/04/22 Greta Wetzel PALaurenC [address] [facility] [place] [address] Physician Physical Education Aide Hematology/Oncology 03/04/22 Natural Gas Technician Relationship Specialty Start Date End Date Brad Giovanni B II [address] [place] [address] PCP - General Internal Medicine 11/29/19 César Leiva MD [address] [place] [address] Endocrinology 05/08/20 Josephine Salomon, RN [address] [facility] [facility] [place] [address] Specialty Pipe Puller Hematology/Oncology 03/04/22 Grace Bess MD [address] [place] [address] Physician Hematology/Oncology 03/04/22 Greta Wetzel PA-C [address] [facility] [facility] [place] [address] Physician Physical Education Aide Hematology/Oncology 03/04/22 Natural Gas Technician Relationship Specialty Start Date End Date Salinas Giovanni B II [address] [place] [address] PCP - General Internal Medicine 11/29/19 César Leiva MD [address] [place] [address] Endocrinology 05/08/20 Josephine Salomon RN [address] [facility] [facility] [place] [address] Specialty Pipe Puller Hematology/Oncology 03/04/22 Grace Bess MD [address] [facility] [place] [address] Physician Hematology/Oncology 03/04/22 Greta Wetzel PA-C [address] [facility] [facility] [place] [address] Physician Physical Education Aide Hematology/Oncology 03/04/22 Natural Gas Technician Relationship Specialty Start Date End Date Giovanni Salinas II [address] [facility] [address] [place] [address] PCP - General Internal Medicine 11/29/19 César Leiva MD [address] [place] [address] Endocrinology 05/08/20 Josephine Salomon, RN [address] [facility] [place] [address] Specialty Pipe Puller Hematology/Oncology 03/04/22 Grace Bess MD [address] [place] [address] Physician Hematology/Oncology 03/04/22 Greta Wetzel PA-C [address] [facility] [place] [address] Physician Physical Education Aide Hematology/Oncology 03/04/22 Natural Gas Technician Relationship Specialty Start Date End Date Giovanni Salinas II [address] [facility] [address] [place] [address] PCP - General Internal Medicine 11/29/19 César Leiva MD [address] [place] [address] Endocrinology 05/08/20 Josephine Salomon, RN [address] [facility] [address] [place], [place] [address] Specialty Pipe Puller Hematology/Oncology 03/04/22 Grace Bess MD [address] [place] [address] Physician Hematology/Oncology 03/04/22 Greta Wetzel PA-C [address] [facility] [place] [address] Physician Physical Education Aide Hematology/Oncology 03/04/22 Natural Gas Technician Relationship Specialty Start Date End Date Giovanni Salinas II [address] [place] [address] PCP - General Internal Medicine 11/29/19 César Leiva MD [address] [place] [address] Endocrinology 05/08/20 Josephine Salomon RN [address] [facility] [place] [address] Specialty Pipe Puller Hematology/Oncology 03/04/22 Grace Bess MD [address] [facility] [place] [address] Physician Hematology/Oncology 03/04/22 Greta Wetzel PA-C [address] [facility] [place] [address] Physician Physical Education Aide Hematology/Oncology 03/04/22 Natural Gas Technician Relationship Specialty Start Date End Date Giovanni Salinas II [address] [place] [address] PCP - General Internal Medicine 11/29/19 César Leiva MD [address] [place] [address] Endocrinology 05/08/20 Josephine Salomon RN [address] [facility] [facility] [place] [address] Specialty Pipe Puller Hematology/Oncology 03/04/22 Grace Bess MD [address] [place] [address] Physician Hematology/Oncology 03/04/22 Greta Wetzel PA-C [address] [facility] [place] [address] Physician Physical Education Aide Hematology/Oncology 03/04/22 Natural Gas Technician Relationship Specialty Start Date End Date Giovanni Salinas II [address] [place] [address] PCP - General Internal Medicine 11/29/19 César Leiva MD [address] [place] [address] [address] [place] [address] Endocrinology 05/08/20 Josephine Salomon RN [address] [facility] [place] [address] Specialty Pipe Puller Hematology/Oncology 03/04/22 Grace Bess MD [address] [place] [address] Physician Hematology/Oncology 03/04/22 Greta Wetzel, PA-C [address] [facility] [place] [address] Physician Physical Education Aide Hematology/Oncology 03/04/22 Natural Gas Technician Relationship Specialty Start Date End Date Giovanni Salinas II [address] [place] [address] PCP - General Internal Medicine 11/29/19 César Leiva MD [address] [place] [address] Endocrinology 05/08/20 Josephine Salomon RN [address] [facility] [place] [address] Specialty Pipe Puller Hematology/Oncology 03/04/22 Grace Bess MD [address] [facility] [place] [address] Physician Hematology/Oncology 03/04/22 Greta Wetzel PA-C [address] [facility] [address] [place], [place] [address] Physician Physical Education Aide Hematology/Oncology 03/04/22 Natural Gas Technician Relationship Specialty Start Date End Date Giovanni Salinas II [address] [place] [address] PCP - General Internal Medicine 11/29/19 César Leiva MD [address] [place] [address] Endocrinology 05/08/20 Josephine Salomon RN [address] [facility] [facility] [place] [address] Specialty Pipe Puller Hematology/Oncology 03/04/22 Grace Bess MD [address] [facility] [place] [address] Physician Hematology/Oncology 03/04/22 Greta Wetzel PA-C [address] [facility] [place] [address] Physician Physical Education Aide Hematology/Oncology 03/04/22 Natural Gas Technician Relationship Specialty Start Date End Date Giovanni Salinas II [address] [place] [address] PCP - General Internal Medicine 11/29/19 César Leiva MD [address] [place] [address] Endocrinology 05/08/20 Josephine Salomon RN [address] [facility] [place] [address] Specialty Pipe Puller Hematology/Oncology 03/04/22 Grace Bess MD [address] [facility] Wil[place], [place] [address] Physician Hematology/Oncology 03/04/22 Greta Wetzel PA-C [address] [facility] [address] [place], [place] [address] Physician Physical Education Aide Hematology/Oncology 03/04/22 Team Status: Active Member Role Status Dates Giovanni Salinas II MD Primary Care Provider Active Team Status: Inactive Member Role Status Dates Giovanni Salinas II MD Primary Care Provider Active Jemma Padilla APRN Emergency Provider Active Natural Gas Technician Relationship Specialty Start Date End Date Giovanni Salinas II [address] [place] [address] PCP - General Internal Medicine 11/29/19 César Leiva MD [address] [place] [address] Endocrinology 05/08/20 Josephine Salomon RN [address] [facility] [place] [address] Specialty Pipe Puller Hematology/Oncology 03/04/22 Grace Bess MD [address] [place] [address] Physician Hematology/Oncology 03/04/22 Greta Wetzel PA-C [address] [place] [address] [place] [address] Physician Physical Education Aide Hematology/Oncology 03/04/22 Natural Gas Technician Relationship Specialty Start Date End Date Giovanni Salinas II [address] [place] [address] PCP - General Internal Medicine 11/29/19 César Leiva MD [address] [place] [address] Endocrinology 05/08/20 Josephine Salomon, RN [address] [facility] [place] [address] Specialty Pipe Puller Hematology/Oncology 03/04/22 Grace Bess MD [address] [place] [address] Physician Hematology/Oncology 03/04/22 Greta Wetzel PA-C [address] [place] [address] [place] [address] Physician Physical Education Aide Hematology/Oncology 03/04/22 Natural Gas Technician Relationship Specialty Start Date End Date Giovanni Salinas II, MD [address] [place] [address] PCP - General Internal Medicine 11/29/19 César Leiva MD [address] [place] [address] Endocrinology 05/08/20 Josephine Salomon RN [address] [facility] [address] [place], [place] [address] Specialty Pipe Puller Hematology/Oncology 03/04/22 Grace Bess MD [address] [facility] [place] [address] Physician Hematology/Oncology 03/04/22 Greta Wetzel PA-C [address] [place] [address] [place] [address] Physician Physical Education Aide Hematology/Oncology 03/04/22 Natural Gas Technician Relationship Specialty Start Date End Date Giovanni Salinas II, MD [address] [address] PCP - General Internal Medicine 11/29/19 César Leiva MD [address] [place] [address] Endocrinology 05/08/20 Josephine Salomon RN [address] [facility] [place] [address] Specialty Pipe Puller Hematology/Oncology 03/04/22 Grace Bess MD [address] [facility] [place] [address] Physician Hematology/Oncology 03/04/22 Greta Wetzel PA-C [address] [place] [address] [place] [address] Physician Physical Education Aide Hematology/Oncology 03/04/22 Natural Gas Technician Relationship Specialty Start Date End Date Giovanni Salinas II, MD [address] [place] [address] PCP - General Internal Medicine 11/29/19 César Leiva MD [address] [place] [address] Endocrinology 05/08/20 Josephine Salomon, RN [address] [facility] [address] [place], [place] [address] Specialty Pipe Puller Hematology/Oncology 03/04/22 Grace Bess MD [address] [place] [address] Physician Hematology/Oncology 03/04/22 Greta Wetzel PA-C [address] [facility] [place] [address] Physician Physical Education Aide Hematology/Oncology 03/04/22 Natural Gas Technician Relationship Specialty Start Date End Date Giovanni Salinas II, MD [address] [facility] [address] [place] [address] PCP - General Internal Medicine 11/29/19 César Leiva MD [address] [place] [address] Endocrinology 05/08/20 Josephine Salomon, RN [address] [facility] [place] [address] Specialty Pipe Puller Hematology/Oncology 03/04/22 Grace Bess MD [address] [place] [address] Physician Hematology/Oncology 03/04/22 Greta Wetzel PA-C [address] [facility] [place] [address] Physician Physical Education Aide Hematology/Oncology 03/04/22 Natural Gas Technician Relationship Specialty Start Date End Date Giovanni Salinas II, MD [address] [place] [address] PCP - General Internal Medicine 11/29/19 César Leiva MD [address] [place] [address] Endocrinology 05/08/20 Josephine Salomon RN [address] [facility] [place] [address] Specialty Pipe Puller Hematology/Oncology 03/04/22 Grace Bess MD [address] [facility] [place] [address] Physician Hematology/Oncology 03/04/22 Greta Wetzel PA-C [address] [facility] [place] [address] Physician Physical Education Aide Hematology/Oncology 03/04/22 Natural Gas Technician Relationship Specialty Start Date End Date Giovanni Salinas II, MD [address] [place] [address] PCP - General Internal Medicine 11/29/19 César Leiva MD [address] [place] [address] Endocrinology 05/08/20 Josephine Salomon RN [address] [place] [address] Specialty Pipe Puller Hematology/Oncology 03/04/22 Grace Bess MD [address] [place] [address] Physician Hematology/Oncology 03/04/22 Greta Wetzel PA-C [address] [place] [address] [place] [address] Physician Physical Education Aide Hematology/Oncology 03/04/22 Natural Gas Technician Relationship Specialty Start Date End Date Giovanni Salinas II, MD [address] [place] [address] PCP - General Internal Medicine 11/29/19 César Leiva MD [address] [place] [address] [address] [place] [id number] Endocrinology 05/08/20 Josehpine Salomon, RN [address] [place] [address] [place] [address] Specialty Pipe Puller Hematology/Oncology 03/04/22 Grace Bess MD [address] [place] [address] Physician Hematology/Oncology 03/04/22 Greta Wetzel PA-C [address] [place] [address] [place] [address] Physician Physical Education Aide Hematology/Oncology 03/04/22 Natural Gas Technician Relationship Specialty Start Date End Date Giovanni Salinas II, MD [address] [place] [address] PCP - General Internal Medicine 11/29/19 César Leiva MD [address] [place] [address] Endocrinology 05/08/20 Josephine Salomon RN [address] [facility] [place] [address] Specialty Pipe Puller Hematology/Oncology 03/04/22 Grace Bess MD [address] [facility] [place] [address] Physician Hematology/Oncology 03/04/22 Greta Wetzel PA-C [address] [place] [address] [place] [address] Physician Physical Education Aide Hematology/Oncology 03/04/22 Natural Gas Technician Relationship Specialty Start Date End Date Giovanni Salinas II, MD [address] [facility] [address] [place] [address] PCP - General Internal Medicine 11/29/19 César Leiva MD [address] [place] [address] Endocrinology 05/08/20 Josephine Salomon RN [address] [facility] [place] [address] Specialty Pipe Puller Hematology/Oncology 03/04/22 Grace Bess MD [address] [facility] [place] [address] Physician Hematology/Oncology 03/04/22 Greta Wetzel PA-C [address] [facility] [place] [address] Physician Physical Education Aide Hematology/Oncology 03/04/22 Natural Gas Technician Relationship Specialty Start Date End Date Giovanni Salinas II, MD [address] [place] [address] PCP - General Internal Medicine 11/29/19 César Leiva MD [address] [place] [address] Endocrinology 05/08/20 Josephine Salomon, LUIS ANTONIO [address] [facility] [facility] [place] [address] Specialty Pipe Puller Hematology/Oncology 03/04/22 Grace Bess MD [address] [place] [address] Physician Hematology/Oncology 03/04/22 Greta Wetzel PA-C [address] [facility] [facility] [place] [address] Physician Physical Education Aide Hematology/Oncology 03/04/22 Natural Gas Technician Relationship Specialty Start Date End Date Giovanni Salinas II, MD [address] [facility] [address] [place] [address] PCP - General Internal Medicine 11/29/19 César Leiva MD [address] [place] [address] Endocrinology 05/08/20 Josephine Salomon, RN [address] [facility] [place] [address] Specialty Pipe Puller Hematology/Oncology 03/04/22 Grace Bess MD [address] [place] [address] Physician Hematology/Oncology 03/04/22 Greta Wetzel PA-C [address] [facility] [place] [address] Physician Physical Education Aide Hematology/Oncology 03/04/22 Natural Gas Technician Relationship Specialty Start Date End Date Giovanni Salinas II, MD [address] [place] [address] [place] [address] PCP - General Internal Medicine 11/29/19 César Leiva MD [address] [place] [address] Endocrinology 05/08/20 Josephine Salomon RN [address] [facility] [place] [address] Specialty Pipe Puller Hematology/Oncology 03/04/22 Grace Bess MD [address] [facility] [place] [address] Physician Hematology/Oncology 03/04/22 Greta Wetzel PA-C [address] [facility] [place] [address] Physician Physical Education Aide Hematology/Oncology 03/04/22 Natural Gas Technician Relationship Specialty Start Date End Date Giovanni Salinas II, MD [address] [place] [address] [place] [address] PCP - General Internal Medicine 11/29/19 César Leiva MD [address] [place] [address] Endocrinology 05/08/20 Josephine Salomon RN [address] [facility] [place] [address] Specialty Pipe Puller Hematology/Oncology 03/04/22 Grace Bess MD 417 [place] [address] Physician Hematology/Oncology 03/04/22 Greta Wetzel PA-C [address] [place] [address] [place] [address] Physician Physical Education Aide Hematology/Oncology 03/04/22 Natural Gas Technician Relationship Specialty Start Date End Date Giovanni Salinas II, MD [address] [place] [address] [place] [address] PCP - General Internal Medicine 11/29/19 César Leiva MD [address] [facility] [address] [place] [address] Endocrinology 05/08/20 Josephine Salomon RN [address] [facility] [place] [address] Specialty Pipe Puller Hematology/Oncology 03/04/22 Grace Bess MD [address] [place] [address] Physician Hematology/Oncology 03/04/22 Greta Wetzel PA-C [address] [place] [address] [place] [address] Physician Physical Education Aide Hematology/Oncology 03/04/22 Natural Gas Technician Relationship Specialty Start Date End Date Giovanni Salinas II, MD [address] [place] [address] [place] [address] PCP - General Internal Medicine 11/29/19 César Leiva MD [address] [place] [address] Endocrinology 05/08/20 Josephine Salomon RN [address] [facility] [place] [address] Specialty Pipe Puller Hematology/Oncology 03/04/22 Grace Bess MD [address] [facility] [place] [address] Physician Hematology/Oncology 03/04/22 Greta Wetzel PA-C [address] [facility] [place] [address] Physician Physical Education Aide Hematology/Oncology 03/04/22 Natural Gas Technician Relationship Specialty Start Date End Date Giovanni Salinas II, MD [address] [facility] [address] [place] [address] PCP - General Internal Medicine 11/29/19 César Leiva MD [address] [place] [address] Endocrinology 05/08/20 Josephine Salomon RN [address] [facility] [place] [address] Specialty Pipe Puller Hematology/Oncology 03/04/22 Grace Bess MD [address] [facility] [place] [address] Physician Hematology/Oncology 03/04/22 Greta Wetzel PA-C [address] [facility] [place] [address] Physician Physical Education Aide Hematology/Oncology 03/04/22 Natural Gas Technician Relationship Specialty Start Date End Date Giovanni Salinas II, MD [address] [place] [address] [place] [address] PCP - General Internal Medicine 11/29/19 César Leiva MD [address] [place] [address] Endocrinology 05/08/20 Josephine Salomon RN [address] [facility] [place] [address] Specialty Pipe Puller Hematology/Oncology 03/04/22 Grace Bess MD [address] [facility] [place] [place] [address] Physician Hematology/Oncology 03/04/22 Greta Wetzel PA-C [address] [facility] [place] [address] Physician Physical Education Aide Hematology/Oncology 03/04/22 Natural Gas Technician Relationship Specialty Start Date End Date Giovanni Salinas II, MD [address] [facility] [address] [place] [address] PCP - General Internal Medicine 11/29/19 César Leiva MD [address] [place] [address] Endocrinology 05/08/20 Josephine Salomon RN [address] [facility] [place] [address] Specialty Pipe Puller Hematology/Oncology 03/04/22 Grace Bess MD [address] [place] [address] Physician Hematology/Oncology 03/04/22 Greta Wetzel PA-C [address] [facility] [place] [address] Physician Physical Education Aide Hematology/Oncology 03/04/22 Natural Gas Technician Relationship Specialty Start Date End Date Giovanni Salinas II, MD [address] [place] [address] [place] [address] PCP - General Internal Medicine 11/29/19 César Leiva MD [address] [facility] [address] [place] [address] Endocrinology 05/08/20 Josephine Salomon, RN [address] [facility] [place] [address] Specialty Pipe Puller Hematology/Oncology 03/04/22 Grace Bess MD [address] [place] [address] Physician Hematology/Oncology 03/04/22 Greta Wetzel PA-C [address] [facility] [place] [address] Physician Physical Education Aide Hematology/Oncology 03/04/[address] [facility] [place] [address] Registered Dietitian Nutrition 06/07/23 Natural Gas Technician Relationship Specialty Start Date End Date Giovanni Salinas II, MD [address] [place] [address] [place] [address] PCP - General Internal Medicine 11/29/19 César Leiva MD [address] [place] [address] Endocrinology 05/08/20 Josephine Salomon, LUIS ANTONIO [address] [facility] [address] [place], [place] [address]70 Specialty Pipe Puller Hematology/Oncology 03/04/22 Grace Bess MD [address] [facility] [place] [address] Physician Hematology/Oncology 03/04/22 Greta Wetzel PA-C [address] [facility] [address] [place], [place] [address] Physician Physical Education Aide Hematology/Oncology 03/04/[address] [facility] [address] [place], [place] [address]70 Registered Dietitian Nutrition 06/07/23 Natural Gas Technician Relationship Specialty Start Date End Date Giovanni Salinas II, MD [address] [facility] [address] [place] [address] PCP - General Internal Medicine 11/29/19 César Leiva MD [address] [place] [address] Endocrinology 05/08/20 Josephine Salomon, LUIS ANTONIO [address] [facility] [place] [address] Specialty Pipe Puller Hematology/Oncology 03/04/22 Grace Bess MD [address] [facility] [place] [address] Physician Hematology/Oncology 03/04/22 Greta Wetzel PA-C [address] [facility] [place] [address] Physician Physical Education Aide Hematology/Oncology 03/04/[address] [facility] [place] [address] Registered Dietitian Nutrition 06/07/23 Natural Gas Technician Relationship Specialty Start Date End Date Giovanni Salinas II, MD [address] [place] [address] [place] [address] PCP - General Internal Medicine 11/29/19 César Leiva MD [address] [facility] [address] [place] [address] Endocrinology 05/08/20 Josephine Salomon, RN [address] [facility] [place] [address] Specialty Pipe Puller Hematology/Oncology 03/04/22 Grace Bess MD [address] [facility] [address] Physician Hematology/Oncology 03/04/22 Greta Wetzel PA-C [address] [facility] [place] [address] Physician Physical Education Aide Hematology/Oncology 03/04/[address] [facility] [place] [address] Registered Dietitian Nutrition 06/07/23 Natural Gas Technician Relationship Specialty Start Date End Date Giovanni Salinas MD [address] [place] [address] [place] [address] PCP - ACO Reach 10/13/22 Giovanni Salinas MD 112 [facility] 110 [place] [address] PCP - General Internal Medicine 10/20/22 Natural Gas Technician Relationship Specialty Start Date End Date Giovanni Salinas II, MD [address] [facility] [address] [place] [address] PCP - General Internal Medicine 11/29/19 César Leiva MD [address] [place] [address] Endocrinology 05/08/20 Josephine Salomon RN [address] [facility] [place] [address] Specialty Pipe Puller Hematology/Oncology 03/04/22 Grace Bess MD [address] [facility] [place] [address] Physician Hematology/Oncology 03/04/22 Greta Wetzel PA-C [address] [place] [address] [place] [address] Physician Physical Education Aide Hematology/Oncology 03/04/[address] [facility] [place] [address] Registered Dietitian Nutrition 06/07/23 Natural Gas Technician Relationship Specialty Start Date End Date Giovanni Salinas II, MD [address] [facility] [address] [place] [address] PCP - General Internal Medicine 11/29/19 César Leiva MD [address] [place] [address] Endocrinology 05/08/20 Josephine Salomon RN [address] [facility] [place] [address] Specialty Pipe Puller Hematology/Oncology 03/04/22 Grace Bess MD [address] [facility] [place] [address] Physician Hematology/Oncology 03/04/22 Greta Wetzel PA-C [address] [place] [address] [place] [address] Physician Physical Education Aide Hematology/Oncology 03/04/[address] [place] [address] [place] [address] Registered Dietitian Nutrition 06/07/23 Natural Gas Technician Relationship Specialty Start Date End Date Giovanni Salinas II, MD [address] [facility] [address] [place] [address] PCP - General Internal Medicine 11/29/19 César Leiva MD [address] [place] [address] Endocrinology 05/08/20 Josephine Salomon RN [address] [facility] [place] [address] Specialty Pipe Puller Hematology/Oncology 03/04/22 Grace Bess MD [address] [place] [address] [place] [address] Physician Hematology/Oncology 03/04/22 Greta Wetzel PA-C [address] [place] [address] [place] [address] Physician Physical Education Aide Hematology/Oncology 03/04/[address] [facility] [place] [address] Registered Dietitian Nutrition 06/07/23 Natural Gas Technician Relationship Specialty Start Date End Date Giovanni Salinas II, MD [address] [place] [place] [address] PCP - General Internal Medicine 11/29/19 Cés[place] [address] [place] [address] [address] [place] [address] Endocrinology 05/08/20 Josephine Salomon, RN [address] [facility] [place] [address] Specialty Pipe Puller Hematology/Oncology 03/04/22 Grace Bess MD [address] [place] [address] [place] [address] Physician Hematology/Oncology 03/04/22 Greta Wetzel PA-C [address] [place] [address] [place] [address] Physician Physical Education Aide Hematology/Oncology 03/04/[address] [facility] [place] [address] Registered Dietitian Nutrition 06/07/23 Natural Gas Technician Relationship Specialty Start Date End Date Giovanni Salinas II, MD [address] [place] [place] [address] PCP - General Internal Medicine 11/29/19 César Leiva MD [address] [place] [address] Endocrinology 05/08/20 Josephine Salomon, RN [address] [facility] [place] [address] Specialty Pipe Puller Hematology/Oncology 03/04/22 Grace Bess MD [address] [place] [address] [place] [address] Physician Hematology/Oncology 03/04/22 Greta Wetzel PA-C [address] [place] [address] [place] [address] Physician Physical Education Aide Hematology/Oncology 03/04/[address] [place] [address] [place] [address] Registered Dietitian Nutrition 06/07/23 Natural Gas Technician Relationship Specialty Start Date End Date Giovanni Salinas II, MD [address] [facility] [address] [place] [address] PCP - General Internal Medicine 11/29/19 César Leiva MD [address] [place] [address] Endocrinology 05/08/20 Josephine Salomon RN [address] [facility] [place] [address] Specialty Pipe Puller Hematology/Oncology 03/04/22 Grace Bess MD [address] [place] [address] [place] [address] Physician Hematology/Oncology 03/04/22 Greta Wetzel PA-C [address] [place] [address] [place] [address] Physician Physical Education Aide Hematology/Oncology 03/04/[address] [facility] [place] [address] Registered Dietitian Nutrition 06/07/23 Natural Gas Technician Relationship Specialty Start Date End Date Giovanni Salinas II, MD [address] [facility] [address] [place] [address] PCP - General Internal Medicine 11/29/19 Cés[place] [address] [place] [address] [address] [place] [address] Endocrinology 05/08/20 Josephine Salomon RN [address] [facility] [place] [address] Specialty Pipe Puller Hematology/Oncology 03/04/22 Grace Bess MD [address] [place] [address] [place] [address] Physician Hematology/Oncology 03/04/22 Greta Wetzel, ALEX [address] [facility] [place] [address] Physician Physical Education Aide Hematology/Oncology 03/04/[address] [facility] [place] [address] Registered Dietitian Nutrition 06/07/23 Natural Gas Technician Relationship Specialty Start Date End Date Giovanni Salinas II, MD [address] [place] [address] PCP - General Internal Medicine 11/29/19 César Leiva MD [address] [place] [address] Endocrinology 05/08/20 Josephine Salomon, RN [address] [facility] [place] [address] Specialty Pipe Puller Hematology/Oncology 03/04/22 Grace Bess MD [address] [place] [address] [place] [address] Physician Hematology/Oncology 03/04/22 Greta Wetzel PA-C [address] [place] [address] [place] [address] Physician Physical Education Aide Hematology/Oncology 03/04/[address] [facility] [place] [address] Registered Dietitian Nutrition 06/07/23 Natural Gas Technician Relationship Specialty Start Date End Date Giovanni Salinas II, MD [address] [facility] [address] [place] [address] PCP - General Internal Medicine 11/29/19 César Leiva MD [address] [place] [address] Endocrinology 05/08/20 Josephine Salomon, RN [address] [facility] [place] [address] Specialty Pipe Puller Hematology/Oncology 03/04/[address] [facility] [place] [address] Physician Hematology/Oncology 03/04/22 Greta Wetzel PA-C [address] [facility] [place] [address] Physician Physical Education Aide Hematology/Oncology 03/04/[address] [facility] [place] [address] Registered Dietitian Nutrition 06/07/23 Natural Gas Technician Relationship Specialty Start Date End Date Giovanni Salinas II, MD [address] [place] [place] [address] PCP - General Internal Medicine 11/29/19 César Leiva MD [address] [facility] [address] [place] [address] Endocrinology 05/08/20 Josephine Salomon, LUIS ANTONIO [address] [facility] [place] [address] Specialty Pipe Puller Hematology/Oncology 03/04/22 [address] Bess MD [address] [facility] [place] [address] Physician Hematology/Oncology 03/04/22 Greta Wetzel PA-C [address] [facility] [place] [address] Physician Physical Education Aide Hematology/Oncology 03/04/[address] [facility] [place] [address] Registered Dietitian Nutrition 06/07/23 Natural Gas Technician Relationship Specialty Start Date End Date Giovanni Salinas II, MD [address] [place] [place] [address] PCP - General Internal Medicine 11/29/19 César Leiva MD [address] [place] [address] Endocrinology 05/08/20 Josephine Salomon, RN [address] [facility] [place] [address] Specialty Pipe Puller Hematology/Oncology 03/04/22 Grace Bess MD [address] [place] [address] [place] [address] Physician Hematology/Oncology 03/04/22 Greta Wetzel PA-C [address] [place] [address] [place] [address] Physician Physical Education Aide Hematology/Oncology 03/04/[address] [place] [address] [place] [address] Registered Dietitian Nutrition 06/07/23 Natural Gas Technician Relationship Specialty Start Date End Date Giovanni Salinas II, MD [address] [facility] [address] [place] [address] PCP - General Internal Medicine 11/29/19 César Leiva MD [address] [place] [address] Endocrinology 05/08/20 Josephine Salomon, RN [address] [facility] [place] [address] Specialty Pipe Puller Hematology/Oncology 03/04/22 Grace Bess MD [address] [place] [address] [place] [address] Physician Hematology/Oncology 03/04/22 Greta Wetzel PA-C [address] [facility] [place] [address] Physician Physical Education Aide Hematology/Oncology 03/04/[address] [facility] [place] [address] Registered Dietitian Nutrition 06/07/23 Natural Gas Technician Relationship Specialty Start Date End Date Giovanni Salinas II, MD [address] [place] [address] PCP - General Internal Medicine 11/29/19 César Leiva MD [address] [facility] [address] [place] [address] Endocrinology 05/08/20 Josephine Salomon, RN [address] [facility] [place] [address] Specialty Pipe Puller Hematology/Oncology 03/04/22 Grace Bess MD [address] [facility] [place] [address] Physician Hematology/Oncology 03/04/22 Greta Wetzel PA-C [address] [facility] [place] [address] Physician Physical Education Aide Hematology/Oncology 03/04/[address] [facility] [place] [address] Registered Dietitian Nutrition 06/07/23 Natural Gas Technician Relationship Specialty Start Date End Date Giovanni Salinas II, MD [address] [place] [address] PCP - General Internal Medicine 11/29/19 César Leiva MD [address] [place] [address] Endocrinology 05/08/20 Josephine Salomon, RN [address] [facility] [address] [place], [place] [address] Specialty Pipe Puller Hematology/Oncology 03/04/22 Grace Bess MD [address] [place], [place] [address] [place], [place] [address] Physician Hematology/Oncology 03/04/22 Greta Wetzel PA-C [address] [place] [address] [address] [place], [place] [address]266[address] Physician Physical Education Aide Hematology/Oncology 03/04/[address] [place] [address] [place], [place] [address]70 Registered Dietitian Nutrition 06/07/23 Natural Gas Technician Relationship Specialty Start Date End Date Giovanni Salinas II, MD [address] [facility] [address] [place] [address] PCP - General Internal Medicine 11/29/19 César Leiva MD [address] [place] [address] Endocrinology 05/08/20 Josephine Salomon, LUIS ANTONIO [address] [facility] [place] [address] Specialty Pipe Puller Hematology/Oncology 03/04/22 Grace Bess MD [address] [facility] [place] [address] Physician Hematology/Oncology 03/04/22 Greta Wetzel PA-C [address] [facility] [place] [address] Physician Physical Education Aide Hematology/Oncology 03/04/[address] [facility] [place] [address] Registered Dietitian Nutrition 06/07/23 Natural Gas Technician Relationship Specialty Start Date End Date Giovanni Salinas II, MD [address] [place] [place] [address] PCP - General Internal Medicine 11/29/19 César Leiva MD [address] [facility] [address] [place] [address] Endocrinology 05/08/20 Josephine Salomon, RN [address] [facility] [place] [address] Specialty Pipe Puller Hematology/Oncology 03/04/22 Grace Bess MD [address] [facility] [place] [address] Physician Hematology/Oncology 03/04/22 Greta Wetzel PA-C [address] [facility] [place] [address] Physician Physical Education Aide Hematology/Oncology 03/04/[address] [facility] [place] [address] Registered Dietitian Nutrition 06/07/23 Natural Gas Technician Relationship Specialty Start Date End Date Giovanni Salinas II, MD [address] [place] [place] [address] PCP - General Internal Medicine 11/29/19 César Leiva MD [address] [place] [address] Endocrinology 05/08/20 Josephine Salomon, RN [address] [facility] [place] [address] Specialty Pipe Puller Hematology/Oncology 03/04/22 Grace Bess MD [address] [facility] [place] [address] Physician Hematology/Oncology 03/04/22 Greta Wetzel PA-C [address] [facility] [place] [address] Physician Physical Education Aide Hematology/Oncology 03/04/[address] [facility] [place] [address] Registered Dietitian Nutrition 06/07/23 Natural Gas Technician Relationship Specialty Start Date End Date Giovanni Salinas II, MD [address] [facility] [address] [place] [address] PCP - General Internal Medicine 11/29/19 César Leiva MD [address] [place] [address] Endocrinology 05/08/20 Josephine Salomon, LUIS ANTONIO [address] [facility] [place] [address] Specialty Pipe Puller Hematology/Oncology 03/04/22 Grace Bess MD [address] [facility] [place] [address] Physician Hematology/Oncology 03/04/22 Greta Wetzel PA-C [address] [facility] [place] [address] Physician Physical Education Aide Hematology/Oncology 03/04/[address] [facility] [place] [address] Registered Dietitian Nutrition 06/07/23 Goals (unrecognized section [...] BE BASED ON THE PRIMARY CLINICAL RECORDS. [facility] [employer] [facility]. provides no warranty or guarantee of the accuracy or completeness of information in this document.
[2023-10-17 01:28] LABS: Lactate/Lactic Acid 2.2 mmol/L (0.4-2.0)
[2023-10-17 04:21] LABS: Basophils Percent Auto 0.4 % (0.2-2.0); Eosinophils Percent Auto 0.2 % (0.9-7.0); Hematocrit 24.8 % (42.0-54.0); Hemoglobin 8.1 g/dL (14.0-18.0); Immature Granulocytes Abs Auto 0.06 10^3/uL (0.00-0.03); Immature Granulocytes Pct Auto 0.7 % (0.0-0.5); Lymphocytes Absolute Auto 1.9 10^3/uL (1.2-3.8); Lymphocytes Percent Auto 21.2 % (20.5-60.0); Mean Corpuscular HGB Conc 32.7 g/dL (29.9-35.2); Mean Corpuscular Hemoglobin 30.3 pg (25.9-34.0); Mean Corpuscular Volume 92.9 fL (80.0-94.0); Mean Platelet Volume 8.8 fL (9.5-13.5); Monocytes Absolute Auto 0.2 10^3/uL (0.3-0.8); Monocytes Percent Auto 1.7 % (1.7-12.0); Neutrophils Absolute Auto 6.9 10^3/uL (1.4-6.5); Neutrophils Percent Auto 75.8 % (43.0-75.0); Platelet Count 317 10^3/uL (150-450); Red Blood Count 2.67 10^6/uL (4.70-6.10); Red Cell Distribution Width 15.1 % (11.0-15.0)
[2023-10-17 04:31] LABS: Anion Gap 12.9; BUN Creatinine Ratio 17.2; Calcium 8.8 mg/dL (8.5-10.1); Chloride 99 mmol/L (98-107); Estimated GFR (African America >60 (>=60); Estimated GFR (Non-African Ame >60 (>=60); Glucose 194 mg/dL (74-106); Potassium 3.9 mmol/L (3.5-5.1); Sodium 131 mmol/L (136-145)
[2023-10-17 09:20] LABS: Lactate/Lactic Acid 1.4 mmol/L (0.4-2.0)
--- NOTE | 2023-10-17 09:27 | P.HP_ITS ---
<Statement entered by Klaudia Lange, - 10/18/23 08:19> This documentation has been reviewed and approved. I have also seen and evaluated patient and agree with above plan of care. Continue IVF. HPI H&P: HPI History of Present Illness Chief complaint: Altered Mental Status HYPOGLYCEMIA WEAKNESS Narrative: 10/17/23 0820 This 73-year-old male with a history of pancreatic cancer since 2019 who has had a Whipple procedure and is currently receiving chemotherapy is brought to the emergency department by EMS accompanied by family. The patient's last chemotherapy was last to Monday (3 days ago), and the patient complains of fatigue from his chemotherapy. The patient's states that earlier tonight she could not get him to respond to her. She checked his sugar and it was around 60. She then gave him a banana and it brought his sugar up and he had some Thai food for dinner. She called EMS because he could not get warm and was having episodes of altered mental status where she states she could not wake him up and she was concerned that he had a UTI. He also has been complaining of constipation, and recurrent chills without fevers. He was alert and oriented in the ED and denied CP or SOB or any other complaint except fatigue. Workup in the ED was mostly benign with mild anemia (10.3) consistent with the patient's baseline and no evidence of leukocytosis. Lactic acidosis was noted but but no evidence of infection was found as a respiratory panel and chest x- ray and UA were all negative for acute infection. Chemistries did note mild hyponatremia (128) and he was treated with IV fluids. As the patient continued to complain of generalized weakness but with normal mentation, he was admitted in observation to the hospitalist service just after midnight early this morning. At the time of my exam the patient was resting comfortably in bed without any evidence of dyspnea or discomfort. He opens his eyes easily to voice and answers all questions appropriately. He continues to complain of fatigue and being chilled, but again did not run a fever overnight. His fatigue is consistent with his chemotherapy treatments with his last dose just 3 days ago. We will continue to observe the patient and give IV fluids. His hyponatremia significantly improved overnight (131), but is not yet completely normal. We will consider discharging later today after PT and OT consults, or possibly in the morning pending clinical course. Opioid HPI Opioid Management Most Recent Opioid Data: Last Pain Assessment 10/18/23 06:00 Last ORT Total Score 0 10/17/23 00:54 Last ORT Risk Category Low Risk 10/17/23 00:54 Review of Systems ROS Status of ROS 10 or more systems reviewed and unremark able except as noted in history and below PFSH PFSH Medical History (Updated 10/18/23 @ 07:29 by Sahra Judd NP) BPH (benign prostatic hyperplasia) ?N40.0 - Benign prostatic hyperplasia without lower urinary tract symptoms (ICD-10) GERD (gastroesophageal reflux disease) ?K21.9 - Gastro-esophageal reflux disease without esophagitis (ICD-10) Pancreatic cancer ?C25.9 - Malignant neoplasm of pancreas, unspecified (ICD-10) Diabetes ?E11.9 - Type 2 diabetes mellitus without complications (ICD-10) Surgical History (Updated 10/17/23 @ 00:46 by Kirsty Murray) History of Whipple procedure ?Z90.410 - Acquired total absence of pancreas (ICD-10) ?Z90.49 - Acquired absence of other specified parts of digestive tract (ICD- 10) Social History Highest level of school completed/degree received: high school graduate Meds Home Medications and Allergies Home Medications ?Medication ?Instructions ?Recorded ?Confirmed ?Type ciprofloxacin HCl 500 mg tablet 500 mg PO BID 10/16/23 10/17/23 History finasteride 5 mg tablet 5 mg PO QAM 10/16/23 10/16/23 History pantoprazole 20 mg tablet,delayed 20 mg PO DAILY 10/16/23 10/16/23 History release tamsulosin 0.4 mg capsule 0.4 mg PO DAILY 10/16/23 10/16/23 History Allergies Allergy/AdvReac Type Severity Reaction Status Date / Time No Known Drug Allergies Allergy Verified 10/16/23 20:34 Exam Constitutional Vital Signs, click to edit/add: Last Vital Signs Temp 98.7 F 10/17/23 07:00 Pulse 65 10/17/23 07:40 Resp 11 L 10/17/23 07:40 BP 90/57 10/17/23 07:38 Pulse Ox 99 10/17/23 07:40 O2 Del Method Room Air 10/17/23 00:55 Common normals: no apparent distress, oriented x3, alert and well nourished General appearance: cooperative Orientation/consciousness: Yes awake HENMT Common normals: normocephalic, head/scalp atraumatic, hearing grossly normal bilaterally, external nose normal and moist oral mucous membranes Eye Common normals: PERRL, EOMs intact bilaterally, conjunctivae normal and no scleral icterus Alignment: alignment normal Eyelid: eyelids normal Neck & C-Spine Common normals: full ROM, supple and no JVD Chest Common normals: inspection of chest normal Chest: symmetrical chest wall rise Respiratory Common normals: normal respiratory effort, no retractions, no use of accessory muscles and clear to auscultation bilaterally Effort & inspection: able to speak in complete sentences Cardio Common normals: no JVD, regular rate, regular rhythm, S1 normal heart sound, S2 normal heart sound, no gallops, no clicks, no murmurs, no rub and peripheral pulses 2+ throughout Heart sounds: other (HT diminished) GI Common normals: Normal to inspection, nondistended, normoactive bowel sounds present, soft to palpation, non-tender, no hepatosplenomegaly, no masses and no bruits Bladder/kidney exam: bladder normal to palpation Back & Pelvis Common normals: thoracic and lumbar spine normal to inspection Extremity Common normals: normal capillary refill General: normal exam except as noted and edema (Trace bilat insteps); no clubbing and no cyanosis Neuro [place] Coma Scale: GCS not evaluated Common normals: CN's II-XII intact bilaterally, moves all extremities, no focal motor deficits and no sensory deficits noted Speech: speech normal Motor exam: strength 5/5 throughout Psych Common normals: mental status grossly normal, thought process normal, affect normal and activity/motor behavior normal Results Labs Labs: Short CBC 10/16/23 10/17/23 Range/Units 20:52 04:04 WBC 12.4 H 9.0 (4.0-11.0) 10^3/uL Hgb 10.3 L 8.1 L (14.0-18.0) g/dL Hct 31.9 L 24.8 L (42.0-54.0) % Plt Count 436 317 (150-450) 10^3/uL BMP 10/16/23 10/17/23 20:52 04:04 Sodium 128 L 131 L Potassium 3.9 3.9 Chloride 93 L 99 Carbon Dioxide 23.4 23.0 BUN 20.0 H 17.0 Creatinine 1.10 0.99 Glucose 154 H 194 H Calcium 9.6 8.8 Liver Function 10/16/23 Range/Units 20:52 Total Bilirubin 1.0 (0.2-1.0) mg/dL AST 18 (15-37) U/L ALT 28 (16-63) U/L Alkaline Phosphatase 138 H (46-116) U/L Albumin 2.8 L (3.4-5.0) g/dL Urine 10/16/23 Range/Units 22:40 Urine Color Brown A (YELLOW) Urine Clarity Clear (CLEAR) Urine pH 8.5 (5.0-9.0) Ur Specific [place] 1.010 (1.005-1.025) Urine Protein Negative (NEG/TRACE) mg/dL Urine Glucose (UA) Negative (NEGATIVE) mg/dL Pulse Oximetry Attestation: I have reviewed the pertinent pulse oximetry results. Imaging Chest x-ray: Attestation: I have reviewed the pertinent imaging results. Radiologist's impression: IMPRESSION: No acute abnormality identified. CT scan - head: Attestation: I have reviewed the pertinent imaging results. Radiologist's impression: IMPRESSION: No CT evidence of acute intracranial abnormality. If there is sufficient clinical concern for acute brain parenchymal pathology, consider MRI for further evaluation. Mild chronic microvascular ischemia and involutional changes. Assessment and Plan Assessment and Plan (1) Hyponatremia: Assessment and Plan: Acute * Adm to observation * Na 128 in ED * Improved to 131 today on AM labs * NS IVF 1 liter bolus given in ED, followed by maintenance IVF at 100/hr. Continue * Possibly contributed to earlier confusion INSULATION HOSEMAN in the ED and to his weakness * CMP daily (2) Acidosis, lactic: Assessment and Plan: Acute * Unclear etiology - no evidence of infection * Repeat Lactic acid this morning - WNL (3) Dehydration: Assessment and Plan: Acute * w/ pre-renal azotemia * Likely 2/2 chemotherapy and subsequent poor oral fluid intake * IVF as above (4) Mental status change resolved: Assessment and Plan: Acute * Suspect 2/2 acute hypoglycemic episode at home INSULATION HOSEMAN * No evidence of infection or other metabolic cause of AMS/Encephalopathy * Resolved (5) Weakness: Assessment and Plan: Acute on chronic * Weakness at baseline d/t Pancreatic CA and chemotherapy treatments * Possibly exacerbated by hyponatremia - see above * No evidence of infection * PT/OT consults (6) Primary pancreatic cancer : Assessment and Plan: Chronic * Defer to outpatient management per [facility] oncology (7) Diabetes: Assessment and Plan: Chronic * Diet controlled * Unclear cause of hypoglycemia - possibly poor oral intake 2/2 chemotherapy * Resolved INSULATION HOSEMAN * Monitor w/ CMP daily and glucometer checks PRN (8) GERD (gastroesophageal reflux disease): Assessment and Plan: Chronic * Continue home PPI (9) BPH (benign prostatic hyperplasia): Assessment and Plan: Chronic * Continue home Tamsulosin and Finasteride
--- NOTE | 2023-10-17 11:13 | CM.NOTE ---
Rounds made with Dr. Lange, discussed with pt possible discharge this afternoon. PT and OT will evaluate pt. Discussed with pt about dehydration and weakness d/t chemo. Will wait for PT and OT notes for discharge planning.
--- NOTE | 2023-10-17 12:06 | CM.NOTE ---
Medicare Outpatient Observation Notice discussed with pt, pt verbalizes understanding and signs paper. Original given to pt and copy placed in pt's chart.
[2023-10-17 12:27] LABS: Glucometer 142 mg/dL (74-106)
[2023-10-17] MEDS: 0.9 % SODIUM CHLORIDE 1,000 ML 100 ML IV ×2 (13:09→21:16)
[2023-10-17] MEDS: FINASTERIDE 5 MG TABLET PO (13:43)
[2023-10-17] MEDS: OMEPRAZOLE 20 MG CAPSULE.DR PO (13:44)
[2023-10-17] MEDS: TAMSULOSIN HCL 0.4 MG CAPSULE 0.400000000000000022 MG PO (13:44)
[2023-10-17 20:51] LABS: Glucometer 151 mg/dL (74-106)
[2023-10-17] MEDS: SENNOSIDES/DOCUSATE SODIUM 1 TAB TABLET PO (21:16)
[2023-10-18] VITALS (30 sets, daily range): BP systolic 75–141; BP diastolic 54–80; PULSE 50–77; O2SAT 98
[2023-10-18 04:55] LABS: Basophils Percent Auto 0.5 % (0.2-2.0); Eosinophils Percent Auto 0.5 % (0.9-7.0); Hematocrit 25.1 % (42.0-54.0); Immature Granulocytes Abs Auto 0.07 10^3/uL (0.00-0.03); Immature Granulocytes Pct Auto 0.9 % (0.0-0.5); Lymphocytes Absolute Auto 1.7 10^3/uL (1.2-3.8); Lymphocytes Percent Auto 21.1 % (20.5-60.0); Mean Corpuscular HGB Conc 31.9 g/dL (29.9-35.2); Mean Corpuscular Hemoglobin 30.8 pg (25.9-34.0); Mean Corpuscular Volume 96.5 fL (80.0-94.0); Monocytes Absolute Auto 0.2 10^3/uL (0.3-0.8); Monocytes Percent Auto 2.7 % (1.7-12.0); Neutrophils Absolute Auto 5.8 10^3/uL (1.4-6.5); Neutrophils Percent Auto 74.3 % (43.0-75.0); Platelet Count 283 10^3/uL (150-450); Red Cell Distribution Width 15.1 % (11.0-15.0); White Blood Count 7.8 10^3/uL (4.0-11.0)
[2023-10-18 05:38] LABS: Alanine Aminotransferase 15 U/L (16-63); Albumin Globulin Ratio 0.5; Albumin Level 2.1 g/dL (3.4-5.0); Alkaline Phosphatase 99 U/L (46-116); Anion Gap 9.7; Aspartate Amino Transferase 11 U/L (15-37); Bilirubin Total 0.5 mg/dL (0.2-1.0); Calcium 8.9 mg/dL (8.5-10.1); Carbon Dioxide 24.2 mmol/L (21.0-32.0); Chloride 102 mmol/L (98-107); Estimated GFR (African America >60 (>=60); Estimated GFR (Non-African Ame >60 (>=60); Globulin 3.9 g/dL; Glucose 131 mg/dL (74-106); Potassium 3.9 mmol/L (3.5-5.1); Sodium 132 mmol/L (136-145)
--- NOTE | 2023-10-18 07:59 | PC.NURSE ---
0742- orthostatic BPs obtained. Patient asymptomatic with both lying and standing BPs
--- NOTE | 2023-10-18 08:08 | P.DS_ITS ---
<Statement entered by Klaudia Lange DO - 10/18/23 11:25> This documentation has been reviewed and approved. I agree with the above discharge plan. Return to the ER with any worsening signs or symptoms, close follow up with PCP and oncology. DS: Providers Provider Date of admission: 10/17/23 00:32 Primary care physician: CRUZITO SPRINGER Consults: 10/17/23 09:00 Occupational Therapy Eval and Treat Routine Reason for consultation: Weakness Has provider been notified: No Physical Therapy Eval and Treat Routine Reason for consultation: Weakness Has provider been notified: No Discharging clinician: Sahra Judd DS: Diagnosis Discharge Diagnosis (1) Hyponatremia: (2) Acidosis, lactic: (3) Dehydration: (4) Orthostatic hypotension: (5) Mental status change resolved: (6) Weakness: (7) Primary pancreatic cancer : (8) Diabetes: (9) GERD (gastroesophageal reflux disease): (10) BPH (benign prostatic hyperplasia): DS: Summary Hospital Course Hospital Course: The patient was admitted with acute hyponatremia, dehydration, weakness, and lactic acidosis which we suspect was secondary overall to his dehydration and chemotherapy treatments. He was treated with IV fluids for 24 hours. His hyponatremia improved and was near normal and his dehydration and lactic acidosis resolved. His weakness improved but is somewhat chronic due to his cancer and chemotherapy at baseline. Orthostatic vital signs were monitored during this admission and were significantly positive throughout his stay. The patient did not have significant symptoms with his orthostasis but is at significant risk due to his low blood pressures with standing. We have added midodrine to his med profile. He is being discharged home in stable condition and should follow-up with his PCP within 5 to 7 days and with his [facility] oncology group as previously scheduled. Time Spent with Patient Time attestation: Total time spent providing and/or coordinating discharge services: Time spent: greater than 30 minutes Specific discharge activities: Physical exam, discussion of discharge plan, questions answered. Exam Constitutional Vital Signs, click to edit/add: Last Vital Signs Temp 98.8 F 10/17/23 23:55 Pulse 55 L 10/18/23 07:44 Resp 18 10/18/23 05:25 BP 107/63 10/18/23 07:42 Pulse Ox 98 10/18/23 05:25 O2 Del Method Room Air 10/18/23 05:25 Common normals: no apparent distress, oriented x3 and alert General appearance: cooperative Orientation/consciousness: Yes awake HENMT Common normals: normocephalic and head/scalp atraumatic Eye Common normals: PERRL, EOMs intact bilaterally, conjunctivae normal and no scleral icterus Neck & C-Spine Common normals: no JVD Respiratory Common normals: normal respiratory effort, no use of accessory muscles and clear to auscultation bilaterally Effort & inspection: able to speak in complete sentences and symmetric chest movement Cardio Common normals: no JVD, regular rate, regular rhythm, S1 normal heart sound, S2 normal heart sound, no murmurs and peripheral pulses 2+ throughout Heart sounds: other (Distant HT) GI Common normals: Normal to inspection, nondistended, normoactive bowel sounds present, soft to palpation and non-tender Palpation: soft Bladder/kidney exam: bladder normal to palpation Extremity Common normals: normal to inspection, full ROM, normal capillary refill and no pedal edema General: no clubbing and no cyanosis Neuro Common normals: moves all extremities, no focal motor deficits and no sensory deficits noted Speech: speech normal Psych Common normals: mental status grossly normal and activity/motor behavior normal DS: Data Data Completed and Pending Labs on day of discharge: Labs from last 24 hours 10/18/23 10/17/23 10/17/23 04:32 20:49 12:25 WBC 7.8 RBC 2.60 L Hgb 8.0 L Hct 25.1 L MCV 96.5 H MCH 30.8 MCHC 31.9 RDW 15.1 H Plt Count 283 MPV 9.0 L Neut % (Auto) 74.3 Lymph % (Auto) 21.1 Petroleum % (Auto) 2.7 Eos % (Auto) 0.5 L Baso % (Auto) 0.5 Neut # (Auto) 5.8 Lymph # (Auto) 1.7 Petroleum # (Auto) 0.2 L Eos # (Auto) 0.0 Baso # (Auto) 0.0 Abs Immat Gran (auto) 0.07 H Imm/Tot Granulo (auto) 0.9 H Sodium 132 L Potassium 3.9 Chloride 102 Carbon Dioxide 24.2 Anion Gap 9.7 BUN 9.0 Creatinine 0.69 L Est GFR ( Amer) >60 Est GFR (Non-Af Amer) >60 BUN/Creatinine Ratio 13.0 Glucose 131 H Lactate Calcium 8.9 Total Bilirubin 0.5 AST 11 L ALT 15 L Alkaline Phosphatase 99 Total Protein 6.0 L Albumin 2.1 L Globulin 3.9 Albumin/Globulin Ratio 0.5 POC Glucose 151 H 142 H 10/17/23 08:32 WBC RBC Hgb Hct MCV MCH MCHC RDW Plt Count MPV Neut % (Auto) Lymph % (Auto) Petroleum % (Auto) Eos % (Auto) Baso % (Auto) Neut # (Auto) Lymph # (Auto) Petroleum # (Auto) Eos # (Auto) Baso # (Auto) Abs Immat Gran (auto) Imm/Tot Granulo (auto) Sodium Potassium Chloride Carbon Dioxide Anion Gap BUN Creatinine Est GFR ( Amer) Est GFR (Non-Af Amer) BUN/Creatinine Ratio Glucose Lactate 1.4 Calcium Total Bilirubin AST ALT Alkaline Phosphatase Total Protein Albumin Globulin Albumin/Globulin Ratio POC Glucose Imaging Chest x-ray: Radiologist's impression: IMPRESSION: No acute abnormality identified. CT scan - head: Radiologist's impression: IMPRESSION: No CT evidence of acute intracranial abnormality. If there is sufficient clinical concern for acute brain parenchymal pathology, consider MRI for further evaluation. Mild chronic microvascular ischemia and involutional changes. Discharge Plan Discharge Disposition: Home, Self-Care Condition: Good Discharge Medications: New midodrine 2.5 mg tablet 2.5 mg PO TIDWMEAL Qty: 90 0RF Rx Instructions: do not give last dose of day after 6PM or within 4 hrs of bedtime Continued finasteride 5 mg tablet 5 mg PO QAM pantoprazole 20 mg tablet,delayed release (DR/EC) 20 mg PO DAILY tamsulosin 0.4 mg capsule 0.4 mg PO DAILY Discontinued ciprofloxacin HCl 500 mg tablet 500 mg PO BID Rx Instructions: for 7 days, course should be finished 10/19 Print Language: [place] Forms: Portal Instructions Follow Up Appointments: - Dr Brad Anderson October 26 @11:15 - FU w/ Oncology as previously scheduled
[2023-10-18] MEDS: MIDODRINE HCL 5 MG TABLET 2.5 MG PO (08:22)
--- NOTE | 2023-10-18 09:13 | SWNOTE1 ---
SW reviewed therapy notes and pt is independent and has no needs identified at discharge. Pt was independent with ADL's.
--- NOTE | 2023-10-18 10:58 | CM.NOTE ---
Rounds made with Dr. Lange, pt will discharge to home today. No discharge needs identified. Pt will f/u with PCP and oncology as scheduled.
--- NOTE | 2023-10-18 11:11 | PC.NURSE ---
infusaport access discontinued. tolerated well. discharge instructions explained to pt, verbalized understanding. assisted with getting dressed, taken to exit via wheelchair, discharged to private vehicle.
--- NOTE | 2023-10-18 14:58 | NUTR.NU ---
Mr. Anderson was admitted 10/16/23 w/AMS, dehydration, lactic acidosis, hyponatremia, pancreatic CA, DM. He eats only small meals/snacks d/t CA and chemotherapy; was able to eat Jello and a popsicle prior to discharge. No documented weight history. He is at high risk for malnutrition d/t CA, loss of muscle mass, inflammation, edema. Recommend liquid meal replacement of pt's choice to supplement PO intakes as he is able to tolerate.
--- NOTE | 2023-10-19 11:47 | CM.DCFOLLOWU ---
Person spoke with: patient How are you feeling? well How is your pain? no pain Did you understand your discharge instructions? yes Do you have any questions about your discharge instructions? yes, regareding prescription, all questions answered Were you given any prescriptions at discharge? yes Were you able to get your prescriptions filled? getting filled today, pharmacy did not have it in stock, will pick it up today Do you understand how to take your medications as ordered? reviewed how often to take meds and when with pt Do you have any questions about your follow up appointment and do you plan to keep your follow up appointment? no questions, reviewed follow up apt. Is there anything else that you would like to discuss? no Questions/Comments/Concerns/Other: N/A
== END 2023-10-18 11:10 | disposition home or self-care (01) ==
LOC: ER 20:34 → ICU 10-17 02:01
PROVIDERS: Family Medicine; Registered Nurse; Admitting Provider Nurse Practitioner; Emergency Provider Emergency Medicine; PCP Internal Medicine; Visit Provider Nurse Practitioner
DX: E87.1 Hypo-osmolality and hyponatremia (principal); E87.20 Acidosis, unspecified; E86.0 Dehydration; R41.82 Altered mental status, unspecified; R53.1 Weakness; E11.9 Type 2 diabetes mellitus without complications; I95.1 Orthostatic hypotension; C25.9 Malignant neoplasm of pancreas, unspecified; K21.9 Gastro-esophageal reflux disease without esophagitis; N40.0 Benign prostatic hyperplasia without lower urinary tract symptoms; Z79.899 Other long term (current) drug therapy; Z90.410 Acquired total absence of pancreas; Z90.49 Acquired absence of other specified parts of digestive tract; Z20.822 Contact with and (suspected) exposure to COVID-19; Z87.891 Personal history of nicotine dependence
CPT/HCPCS: 0202U; 36415; 36416; 51798; 70450; 71045; 80048; 80053; 81001; 82140; 82948; 83605; 83690; 83735; 84484; 85025; 87040; 93005; 96360; 96361; 97162; 97165; 99285; G0378

== ENCOUNTER 2023-11-22 14:06 | Outpatient (OUT) | payer MEDICARE, SELFPAY ==
--- NOTE | 2023-11-22 14:10 | XR_ITS ---
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 VASCULATURE: No increased pulmonary vasculature. PLEURA: No pneumothorax, effusion, or pleural thickening. CARDIAC: No cardiomegaly or cardiac silhouette abnormality. MEDIASTINUM: No visible mass or adenopathy. BONES: No fracture or visible bone lesion. OTHER: Port-A-Cath within upper right chest wall with distal tip at cavoatrial junction. XR/XR chest 1V IMPRESSION: 1. No acute cardiopulmonary process. 2. Stable appearance of right Port-A-Cath. No suspicious findings on x-ray. Electronically authenticated by: SID MURRAY Date: 11/25/2023 04:29
== END 2023-11-22 14:07 | disposition home or self-care (01) ==
LOC: RAD 14:06
PROVIDERS: PCP Internal Medicine; Visit Provider Physician Assistant Medical
DX: C25.0 Malignant neoplasm of head of pancreas (principal); T82.9XXA Unspecified complication of cardiac and vascular prosthetic device, implant and graft, initial encounter
CPT/HCPCS: 71045

== ENCOUNTER 2023-12-01 07:53 | Day surgery (SDC) | payer MEDICARE, SELFPAY ==
--- NOTE | 2023-12-01 08:00 | FL_ITS ---
The [address] [address] Patient Name: TRINITY PERRY MRN: [id number] date: 1950 Sex: M [place]igned Patient Location: [place] Current Patient Location: [place] Accession/Order Number: [id number] Exam Date: 12/01/2023 08:15 Report Date: 12/01/2023 09:43 At the request of: MISTY WETZEL Procedure: FL fluoroscopy <1hr EXAMINATION: FL fluoroscopy <1hr HISTORY: Centeral Line Complication T82.9XXA COMPARISON: No relevant comparison available. FLUOROSCOPY TIME: Fluoro time measures 29.3 seconds and 0.94 mgy TECHNIQUE: Standard level fluoroscopic mode of operation utilized. FINDINGS: Real-time injection of 12 cc of Omnipaque 300 demonstrate normal opacification of the right single lumen Port-A-Cath and Port-A-Cath tubing with free flow of contrast from the tip in the right atrium. No leakage of contrast was identified. No abnormality of the tubing in the region of the patient's supraclavicular cellulitis FL/FL fluoroscopy <1hr IMPRESSION: Normal examination. Electronically authenticated by: MAURICIO QUEZADA Date: 12/01/2023 09:43
[2023-12-01] MEDS: HEPARIN SODIUM (PORCINE) PF LOCK FLUSH 500 UNIT/5 ML SYRINGE IV (08:35)
--- NOTE | 2023-12-01 09:38 | SUR.PREOP ---
11/30/23 Pt instructed on procedure, date, time, an dprep.
== END 2023-12-01 08:45 | disposition home or self-care (01) ==
LOC: FL 07:53
PROVIDERS: Radiology Diagnostic Radiology; PCP Internal Medicine; Visit Provider Physician Assistant Medical
DX: T82.9XXA Unspecified complication of cardiac and vascular prosthetic device, implant and graft, initial encounter (principal)
CPT/HCPCS: 76000; J1642; Q9967

== ENCOUNTER 2024-03-24 21:56 | Inpatient (IN) | payer MEDICARE, SELFPAY ==
[2024-03-24 21:58] VITALS: BP 115/67; PULSE 86; TEMP 37.7; O2SAT 95; BMI 25.8
--- OUTSIDE RECORDS SUMMARY | 2024-03-24 22:07 | XMS_ITS | CCD ---
Author Organization [facility] Care Team Providers Care Pbx Wire Chief Name Role Phone Giovanni Salinas Primary Care [...] Primary Care Unavailable PRAVEEN ALVAREZ Admitting Unavailable ALVAREZ, PRAVEEN Attending Unavailable Giovanni Salinas II Primary Care Provider Mehreen Leivamamaribel Firas Unavailable Mehreen Leivamad Firas Unavailable Giovanni Salinas II Primary Care Provider Cali, Mehreenmamaribel Firas Unavailable Aime SALMON, Josephine Dykes Unavailable Grace Bess MD Unavailable Greta Wetzel PA-C Unavailable Zayda ENCARNACION Consulting Unavailable FARA MONACO Attending Unavailable FARA MONACO Admitting Unavailable GIOVANNI SALINAS II Primary Care Unavailable Giovanni Salinas II Primary Care Provider Mehreen Leivamad Firas Unavailable Aime SALMON, Josephine Dykes Unavailable Grace Bess MD Unavailable [phone] Great Wetzel PA-C Unavailable César Leiva MD F Unavailable [phone] MARIO Salinas Primary Care Provider DANIKA Padilla Emergency Provider [phone] Brad MARTIN MD, Daniel B Primary Care Provider Josephine Salomon RN Unavailable Ibis Buchanan RD Unavailable Giovanni Salinas MD Unavailable Giovanni Salinas MD Primary Care Provider Brad MARTIN MD, Daniel B Primary Care Provider GIOVANNI SALINAS Attending Unavailable GIOVANNI SALINAS Attending Unavailable Jemma Padilla Attending Unavailable Jemma Padilla Admitting Unavailable Giovanni Salinas Primary Care Unavailable Luis GODWIN, Vivek Jordan Unavailable [phone] KARUPPASAMY, KARUNAKARAVEL Admitting Unava ilable JYOTIMY, JHONNY Attending Unava ilable SALINAS II, GIOVANNI B Primary Care Unavailable Maria Alejandra GODWIN, Grace Unavailable Giovanni Salinas MD Unavailable [phone] Monday CIGARETTE ROLLER, Katie Unavailable SALINAS II, GIOVANNI B Primary Care Unavailable KARAMLOU, GRACE Referring Unavailable VIVEK SMITH Attending Unavailable SALINAS II, GIOVANNI B Primary [...] Primary Care Unavailable KARAMLOU, GRACE Referring Unavailable VIVEK SMITH Attending Unavailable SALINAS II, GIOVANNI B Primary Care Unavailable KARAMLOU, GRACE Referring Unavailable SALINAS II, GIOVANNI B Primary Care Unavailable KARAMLOU, GRACE Referring Unavailable SALINAS II, GIOVANNI B Primary Care Unavailable KARAMLOU, GRACE Referring Unavailable SALINAS II, GIOVANNI B Primary Care Unavailable KARAMLOU, GRACE Referring Unavailable SALINAS II, GIOVANNI B Primary Care Unavailable SALINAS II, GIOVANNI B Primary Care Unavailable RASHARD, GRETA M Referring Unavailable SALINAS II, GIOVANNI B Primary Care Unavailable KARAMLOU, GRACE Referring Unavailable SALINAS II, GIOVANNI B Primary Care Unavailable KARAMLOU, GRACE Referring Unavailable GRETA WETZEL M Attending Unavailable SALINAS II, GIOVANNI B Primary Care Unavailable KARAMLOU, GRACE Referring Unavailable IBIS BUCHANAN Attending Unavailabl e SALINAS II, GIOVANNI B Primary Care Unavailable KARAMLOU, GRACE Referring Unavailable CHANELIBIS Attending Unavailabl e SALINAS II, GIOVANNI B Primary Care Unavailable RASHARD, GRETA M Referring Unavailable SALINAS II, GIOVANNI B Primary Care Unavailable KARAMLOU, GRACE Referring Unavailable SALINAS II, GIOVANNI B Primary Care Unavailable KARAMLOU, GRACE Referring Unavailable KARAMLOU, GRACE Attending Unavailable SALINAS II, GIOVANNI B Primary Care Unavailable KARAMLOU, GRACE Referring Unavailable SALINAS II, GIOVANNI B Primary Care Unavailable RASHARD, GRETA M Referring Unavailable SALINAS II, GIOVANNI B Primary Care Unavailable KARAMLOU, GRACE Referring Unavailable SALINAS II, GIOVANNI B Primary Care Unavailable KARAMLOU, GRACE Referring Unavailable GRETA WETZEL M Attending Unavailable SALINAS II, GIOVANNI B Primary Care Unavailable KARAMLOU, GRACE Referring Unavailable SALINAS II, GIOVANNI B Primary Care Unavailable RASHARD, GRETA M Referring Unavailable SALINAS II, GIOVANNI B Primary Care Unavailable KARAMLOU, GRACE Referring Unavailable SALINAS II, GIOVANNI B Primary Care Unavailable KARAMLOU, GRACE Referring Unavailable YORDY MONCADA Attending Unavailable SALINAS II, GIOVANNI B Primary Care Unavailable KARAMLOU, GRACE Referring Unavailable SALINAS II, GIOVANNI B Primary Care Unavailable RASHARD, GRETA M Referring Unavailable RASHARD, GRETA M Referring Unavailable SALINAS II, GIOVANNI B Primary Care Unavailable SALINAS II, GIOVANNI B Primary Care Unavailable KARAMLOU, GRACE Referring Unavailable VIVEK SMITH Attending Unavailable SALINAS II, GIOVANNI B Primary [...] SALINAS II, GIOVANNI B Primary Care Unavailable VIVEK SMITH Referring Unavailable GRETA WETZEL Attending Unavailable SALINAS II, GIOVANNI B Primary Care Unavailable GRETA WETZEL Referring Unavailable GRETA WETZEL Attending Unavailable SALINAS [...] Referring Unavailable GRETA WETZEL M Attending Unavailable SALINAS II, GIOVANNI B Primary [...] Primary Care Unavailable KARAMLOU, GRACE Referring Unavailable VIVEK SMITH Attending Unavailable SALINAS II, GIOVANNI B Primary [...] every six hours as needed for pain oxyCODONE-acetam inophen (PERCOCET) 5-325 MG per tablet Indications: 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 100 tablet 0 03/18/2020 04/17/2020 Active amylases 49032 unt / endopeptidases 00110 unt / lipase 6000 unt delayed release oral capsule (2 sources) take 1 capsule by mouth three times daily at mealtime lipase-protease- amylase (CREON) 6000 units delayed release capsule Take [...] BLOOD SUGAR TWICE DAILY 0 10/26/2022 Active cephalexin 500 mg oral capsule (3 sources) Cephalosporin Antibacterial Start: 11-22-2023 End: 12-02-2023 take 1 capsule by mouth three times daily cephALEXin (KEFLEX) 500 mg capsule Take 1 capsule by mouth three times a day for 10 days. 30 capsule 0 11/22/2023 12/02/2023 Active Start: 11-02-2023 End: 11-12-2023 take 1 capsule by mouth three times daily cephALEXin (KEFLEX) 500 mg capsule Take 1 capsule by mouth three times a day for 10 days. 30 capsule 0 11/02/2023 11/12/2023 Active ciprofloxacin 500 mg oral tablet (2 sources) Quinolone Antimicrobial Start: 10-13-2023 End: 10-20-2023 take 1 tablet by mouth twice daily ciprofloxacin HCl (CIPRO) 500 mg tablet Take 1 tablet by mouth two times a day for 7 days. 14 tablet 0 10/13/2023 10/20/2023 Active Continuous Blood Gluc Marine Animal Trainer (Dexcom G7 Marine Animal Trainer) device (2 sources) Start: 04-17-2023 End: 04-16-2024 Continuous Blood Gluc Marine Animal Trainer (Dexcom G7 Marine Animal Trainer) device Indications: Type 2 diabetes mellitus without complication, without long-term current use of insulin (CMS/[facility]) 1 Device yearly. 1 each 04/17/2023 04/16/2024 Active Start: 04-17-2023 End: 04-16-2024 Continuous Blood Gluc Receiv er (Dexcom G7 Marine Animal Trainer) device Indications: Type 2 diabetes mellitus without [...] 11 04/17/2023 04/16/2024 Active Continuous Blood Gluc Transm it (Dexcom G6 transmitter) misc (1 source) Start: 11-14-2022 Continuous Blo od Gluc Transmit (Dexcom G6 transmitter) [facility] [place] Indications: Diabetes mellitus due to underlying condition with diabetic polyneuropathy, without long-term current use of insulin ([facility]) Use as instructed 1 each 0 11/14/2022 Active Continuous Glucose Marine Animal Trainer (FreeStyle Flaco 3 [place]) device (1 source) Start: 10-26-2023 End: 10-25-2024 Continuous Glucose Marine Animal Trainer (FreeStyle Flaco 3 [place]) device Indications: Type 2 diabetes mellitus without complication, without long-term current use of insulin ([facility]) 1 Device yearly 1 each 10/26/2023 10/25/2024 Active Continuous Glucose Sensor (FreeStyle Flaco 3 Plus Sensor) misc (1 source) Start: 02-23-2024 End: 05-23-2024 Continuous Glucose Sensor (FreeStyle Flaco 3 Plus Sensor) [facility] [place] Indications: Diabetes mellitus due to underlying condition with diabetic polyneuropathy, without long-term current use of insulin ([facility]) 1 Units See administration instructions 1 sensor every 15 days. 6 each 3 02/23/2024 05/23/2024 Active enteric contrast (will be provided with radiology test) (10 sources) Start: 10-31-2023 End: 11-01-2023 enteric contrast (will be provided with radiology test) For CT ABD/PEL W IVCON Routine order Administer, As Directed One Time Only, via Oral, Rectal, both Oral and Rectal, Enteric Tube, Stoma or Indwelling Catheter, Enteric Contrast as designated per enteric contrast guidelines 1 Each 0 10/31/2023 11/01/2023 Active Start: 08-02-2023 End: 08-03-2023 enteric contrast (will be pr ovided with [...] prostatic hyperplasia without lower urinary tract symptoms TAKE 1 TABLET BY MOUTH IN THE MORNING 90 tablet 3 01/29/2024 Active Comment on above: Take 5 mg by mouth o nce daily. FREESTYLE FLACO 3 READER misc (19 sources) Start: FREESTYLE FLACO 3 READER misc USE DIRECTED to check BLOOD SUGAR 11/12/2023 Active Start: 11-12-2023 FREESTYLE LIBR E 3 READER misc USE DIRECTED to check BLOOD SUGAR 0 11/12/2023 Active FREESTYLE FLACO 3 SENSOR dev i (19 sources) Start: 12-13-2023 FREESTYLE LIBR E 3 SENSOR marsha USE DIRECTED change EVERY 14 days 12/13/2023 Active Start: 12-13-2023 FREESTYLE LIBR E 3 SENSOR marsha USE DIRECTED change EVERY 14 days 0 12/13/2023 Active Insulin Aspart U-100 (Novolog Flexpen U-100 Insulin) 100 unit/mL (3 mL) Insulin Pen (1 source) Start: 12-15-2022 inject 6 [IU] by subcutaneous injection once [...] insulin aspart, human 100 unt/ml pen injector (2 sources) Insulin Analog Start: 11-25-2022 NovoLOG FLEXPE N 100 UNIT/ML pen INJECT 6-8-10 UNITS according to meal size plus sliding scale DIRECTED (expect up to 30 UNITS DAILY) 11/25/2022 Active 1.5 ml insulin glargine 300 unt/ml pen injector (20 sources) Insulin Analog Start: 11-24-2022 inject 26 [IU] by subcutaneous injection once daily at bedtime Toujeo SoloStar 300 UNIT/ML injection INJECT 26 UNITS SUBCUTANEOUSLY AT BEDTIME DAILY 11/24/2022 Active inject 300 [IU] by s ubcutaneous injection once daily insulin glargine U-300 conc (TOUJEO MAX U-300 SOLOSTAR) 300 unit/mL (3 mL) inpn Inject 300 mL subcutaneously once daily. At night Active insulin glargine (LANTUS) 100 UNIT/ML injection [...] SUBCUTANEOUSLY IN THE EVENING before a meal 11/17/2022 Active Comment on above: INJECT 25 UNITS SUBC UTANEOUSLY IN THE MORNING then INJECT 25 UNITS SUBCUTANEOUSLY IN THE EVENING before a meal iv contrast (will be provided with radiology test) (20 sources) Start: End: iv contrast (will be provided with radiology test) CT Chest W -Inject, [...] contrast administration guidelines link. 1 Each 0 10/31/2023 11/01/2023 Active Start: 10-31-2023 End: 11-01-2023 iv contrast (will be provide d with [...] contrast administration guidelines link. 1 Each 0 10/31/2023 11/01/2023 Active Start: 08-02-2023 End: 08-03-2023 iv contrast [...] in the CT contrast administration guidelines link. meloxicam 7.5 mg oral tablet (7 sources) Nonsteroidal Anti-inflammatory Drug Start: 3 End: 3 take 1 tablet by mouth in the morning meloxicam (Mobic) 7.5 MG tablet Take 7.5 mg by mouth in the morning. 0 09/29/2022 Active Start: 08-02-2022 End: 09-02-2022 take 1 tablet by mouth once daily meloxicam (MOBIC) 7.5 mg tablet Take 1 tablet by mouth once daily. 30 tablet 0 08/03/2022 09/02/2022 Active Comment on above: Take 1 tablet by memo once daily. midodrine hydrochloride 2.5 mg oral tablet (20 sources) alpha-Adrenergic Agonist Start: End: midodrine (PROAMATINE) 2.5 mg tablet Take 2.5 mg by mouth. 10/27/2023 10/26/2024 Active ondansetron 8 mg oral tablet (20 sources) Serotonin-3 Receptor Antagonist Start: End: take 1 tablet by mouth every eight hours as needed ondansetron (ZOFRAN) 8 mg tablet Take 1 tablet by mouth every 8 hours as needed for nausea/vomiting. 90 tablet 2 06/07/2023 Active Comment on above: Take 1 tablet by memo th every 8 hours as needed for nausea/vomiting. pantoprazole 20 mg delayed release oral tablet (20 sources) Proton Pump Inhibitor Start: End: take 1 tablet by mouth once daily pantoprazole DR (PROTONIX) 20 mg tablet Indications: Adenocarcinoma of head of pancreas (HCC) Take 1 tablet by mouth once daily. 30 tablet 5 03/05/2020 Active Comment on above: Take 1 tablet by memo th once daily. Probiotic Product (PROBIOTIC ADVANCED PO) (1 source) take 1 capsule by mouth twice daily Probiotic Product (PROBIOTIC ADVANCED PO) Take 1 capsule by mouth 2 times daily 0 Active prochlorperazine 10 mg oral tablet (20 sources) Phenothiazine Start: End: take 1 tablet by mouth every six hours as needed prochlorperazine (COMPAZINE) 10 mg tablet Take 1 tablet by mouth every 6 hours as needed. 100 tablet 2 06/07/2023 Active Comment on above: Take 1 tablet by memo th every 6 hours as needed. tamsulosin hydrochloride 0.4 mg oral capsule (20 sources) alpha-Adrenergic Quinn Start: take 0.4 mg by mouth once daily tamsulosin (FLOMAX) 0.4 mg Take 0.4 mg by mouth once daily. 02/12/2022 Active Start: 02-12-2022 take 1 capsule by mo [facility] every twenty-four hours in the morning tamsulosin [...] Take 50 mcg by mouth once daily. Active take 50 ug by mouth once daily Z INC ORAL Take 50 mcg by mouth once [...] one (1) tablet daily for 4 days. cholecalciferol, vitamin D3, (VITAMIN D3 ORAL) (20 sources) End: 11-20-2023 take 1000 [IU] by mouth once daily cholecalciferol, vitamin D3, (VITAMIN D3 ORAL) Take 1,000 Units by mouth once daily. 11/20/2023 Discontinued End: 11-20-2023 take 1000 [IU] by mouth once daily cholecalciferol, vitamin D3, (VITAMIN D3 ORAL) Take 1,000 Units by mouth once daily. 0 11/20/2023 Discontinued take 1000 [IU] by mo uth once daily cholecalciferol, vitamin D3, (VITAMIN D3 ORAL) Take 1,000 Units by mouth once daily. 0 Active cholecalciferol, vitamin D3, (VITAMIN D3 ORAL) Take by mouth once daily. 0 Active Comment on above: Take by mouth once d aily. Take 1,000 Units by mouth once daily. codeine phosphate 2 mg/ml / guaiFENesin 20 mg/ml oral solution (5 sources) Opioid Agonist Start: 05-01-20 End: 06-07-19 take 5 mL by mouth every six hours as needed for cough codeine-guaiFENesin (ROBITUSSIN AC) 10-100 mg/5 mL syrup TAKE 5ml BY MOUTH EVERY 6 HOURS NEEDED FOR COUGH 05/01/2023 06/07/2023 Discontinued (Course of therapy completed) Comment on above: TAKE 5ml BY MOUTH EV MARQUEZ 6 HOURS NEEDED FOR COUGH 1 ml dexamethasone phosphate 10 mg/ml injection (1 source) Corticosteroid Start: 03-05-20 End: 03-05-20 10 mg, INTRAVENOUS, ONCE, 1 dose, On Mon03/05/24 at 1000, Administer over 5 minutes. Start: 03-05-2024 End: 03-05-2024 10 mg, INTRAVENOUS, ONCE, 1 dose, On Mon03/05/24 at 1000, Administer over 5 minutes. dexAMETHasone 10 mg in NaCl 0.9% 50 mL (DECADRON) (8 sources) Start: 02-12-2024 End: 02-12-2024 10 mg, INTRAVENOUS, ONCE, 1 dose, On Mon02/12/24 at 0930, Refrigerate. Start: 01-23-2024 End: 01-23-2024 10 mg, INTRAVENOUS, ONCE, 1 dose, On Mon01/23/24 at 1030, Refrigerate. Start: 01-03-2024 End: 01-03-2024 dexAMETHasone 10 mg in NaCl 0.9% 50 mL (DECADRON) Start: 12-11-2023 End: 12-11-2023 dexAMETHasone 10 mg in NaCl 0.9% 50 mL (DECADRON) Start: 11-20-2023 End: 11-20-2023 dexAMETHasone 10 mg in NaCl 0.9% 50 mL (DECADRON) Start: 10-31-2023 End: 10-31-2023 dexAMETHasone 10 mg in NaCl 0.9% 50 mL (DECADRON) Start: 10-11-2023 End: 10-11-2023 dexAMETHasone 10 mg in NaCl 0.9% 50 [...] above: Take 1 tablet by memo th daily at bedtime. fluorouracil (ADRUCIL) 4,368 mg in NaCl 0.9% 102 mL in empty bag (2 sources) Start: 11-20-2023 End: 11-20-2023 fluorouracil (ADRUCIL) 4,368 mg in NaCl 0.9% 102 mL in empty bag Start: 10-31-2023 End: 10-31-2023 fluorouracil (ADRUCIL) 4,368 mg in NaCl 0.9% 102 mL in empty bag fluorouracil (ADRUCIL) 4,464 mg in NaCl 0.9% 102 mL in empty bag (5 sources) Start: 03-05-2024 End: 03-05-2024 4,464 mg (2,400 mg/m2 1.86 m 2 Treatment Plan BSA from Recorded weight), INTRAVENOUS, at 2.2 mL/hr, Administer over 46 Hours, ONCE, 1 dose, On Mon03/05/24 at 1000, EXP: 03/12/2024 1000 RT Hazardous Chemotherapy Drug: Use appropriate PPE. Protect from Light. Start: 02-12-2024 End: 02-12-2024 4,464 mg (2,400 mg/m2 1.86 m 2 Treatment Plan BSA from Recorded weight), INTRAVENOUS, at 2.2 mL/hr, Administer over 46 Hours, ONCE, 1 dose, On 02/12/24 at 0930, EXP: 02/19/2024 0940 RT Hazardous Chemotherapy Drug: Use appropriate PPE. Protect from Light. Start: 01-23-2024 End: 01-23-2024 4,464 mg (2,400 mg/m2 1.86 m 2 Treatment Plan BSA from Recorded weight), INTRAVENOUS, at 2.2 mL/hr, Administer over 46 Hours, ONCE, 1 dose, On Tu01/23/24 at 1030, EXP: 01/26/24 @ 1600 RT Hazardous Chemotherapy Drug: Use appropriate PPE. Protect from Light. Start: 01-03-2024 End: 01-03-2024 fluorouracil (ADRUCIL) 4,464 mg in NaCl 0.9% 102 mL in empty bag Start: 12-11-2023 End: 12-11-2023 fluorouracil (ADRUCIL) 4,464 mg in NaCl 0.9% 102 mL in empty bag fluorouracil (ADRUCIL) 4,500 mg in NaCl 0.9% 102 mL in empty bag (2 sources) Start: 10-11-2023 End: 10-11-2023 fluorouracil (ADRUCIL) 4,500 mg in NaCl 0.9% 102 mL in empty bag Start: 09-13-2023 End: 09-13-2023 fluorouracil (ADRUCIL) 4,500 mg in NaCl 0.9% 102 mL in empty bag gabapentin 300 mg oral capsule (20 sources) Anti-epileptic Agent Start: 02-08-2023 End: 06-08-2023 take 1 capsule by mouth once daily at bedtime gabapentin (NEURONTIN) 300 mg capsule Take 1 capsule by mouth daily at bedtime for 30 days. 30 capsule 04/05/2023 06/08/2023 Discontinued Start: 04-20-2022 End: 05-04-2022 take 1 capsule [...] on above: Take 1 capsule by mo ut daily at bedtime for 14 days. Take 1 capsule by mo [facility] daily at bedtime for 30 days. hyoscyamine sulfate 0.125 mg sublingual tablet (9 sources) Start: 03-05-2024 End: 03-05-2024 take 0.25 mg under the tongue once 0.25 mg, SUBLINGUAL, ONCE, 1 dose, On Mon03/05/24 at 1000, Give 30 minutes prior to chemotherapy. Start: 02-12-2024 End: 02-12-2024 take 0.25 mg under the tongue once 0.25 mg, SUBLINGUAL, ONCE, 1 dose, On Mon02/12/24 at 0930, Give 30 minutes prior to chemotherapy. Start: 01-23-2024 End: 01-23-2024 take 0.25 mg under the tongue once 0.25 mg, SUBLINGUAL, ONCE, 1 dose, On Mon01/23/24 at 1030, Give 30 minutes prior to chemotherapy. Start: 01-03-2024 End: 01-03-2024 hyoscyamine sublingual 0.25 mg tab(s) (LEVSIN SL) Start: 12-11-2023 End: 12-11-2023 hyoscyamine sublingual 0.25 mg tab(s) (LEVSIN SL) Start: 11-20-2023 End: 11-20-2023 hyoscyamine sublingual 0.25 mg tab(s) (LEVSIN SL) Start: 10-31-2023 End: 10-31-2023 hyoscyamine sublingual 0.25 mg tab(s) (LEVSIN SL) Start: 10-11-2023 End: 10-11-2023 hyoscyamine sublingual 0.25 mg tab(s) (LEVSIN SL) Start: 09-13-2023 End: 09-13-2023 hyoscyamine sublingual 0.25 mg tab(s) (LEVSIN SL) irinotecan liposomal (ONIVYD E) 127.4 mg in NaCl 0.9% 569.6279 mL (2 sources) Start: 11-20-2023 End: 11-20-2023 irinotecan liposomal (ONIVYD E) 127.4 mg in NaCl 0.9% 569.6279 mL Start: 10-31-2023 End: 10-31-2023 irinotecan liposomal (ONIVYD E) 127.4 mg in NaCl 0.9% 569.6279 mL irinotecan liposomal (ONIVYD E) 129 mg in NaCl 0.9% 570 mL (7 sources) Start: 03-05-2024 End: 03-05-2024 129 mg (rounded from 130.2 m g = 70 mg/m2 1.86 m2 Treatment Plan BSA from Recorded weight), INTRAVENOUS, Administer over 90 Minutes, ONCE, 1 dose, On Mon03/05/24 at 1000, EXP: 03/06/2024 1000 Hazardous Chemotherapy Drug: Use appropriate PPE. Protect from Light. Start: 02-12-2024 End: 02-12-2024 129 mg (rounded from 130.2 m g = 70 mg/m2 1.86 m2 Treatment Plan BSA from Recorded weight), INTRAVENOUS, Administer over 90 Minutes, ONCE, 1 dose, On Mon02/12/24 at 0930, Approx Total Volume: mL EXP: 02/12/2024 1340 RT Hazardous Chemotherapy Drug: Use appropriate PPE. Protect from Light. Start: 01-23-2024 End: 01-23-2024 129 mg (rounded from 130.2 m g = 70 mg/m2 1.86 m2 Treatment Plan BSA from Recorded weight), INTRAVENOUS, Administer over 90 Minutes, ONCE, 1 dose, On Mon01/23/24 at 1030, Approx Total Volume: mL EXP: 01/24/2024 1430 RT Hazardous Chemotherapy Drug: Use appropriate PPE. Protect from Light. Start: 01-03-2024 End: 01-03-2024 irinotecan liposomal (ONIVYD E) 129 mg in NaCl 0.9% 570 mL Start: 12-11-2023 End: 12-11-2023 irinotecan liposomal (ONIVYD E) 129 mg in NaCl 0.9% 570 mL Start: 10-11-2023 End: 10-11-2023 irinotecan liposomal (ONIVYD E) 129 mg in NaCl 0.9% 570 mL Start: 09-13-2023 End: 09-13-2023 irinotecan liposomal (ONIVYD E) 129 mg in NaCl 0.9% 570 mL leucovorin 728 mg in NaCl 0. 9% 94.4 mL (2 sources) Start: 11-20-2023 End: 11-20-2023 leucovorin 728 mg in NaCl 0. 9% 94.4 mL Start: 10-31-2023 End: 10-31-2023 leucovorin 728 mg in NaCl 0. 9% 94.4 mL leucovorin 744 mg in NaCl 0. 9% 95.2 mL (4 sources) Start: 02-12-2024 End: 02-12-2024 744 mg (400 mg/m2 1.86 m2 Treatment Plan BSA from Recorded weight), INTRAVENOUS, Administer over 30 Minutes, ONCE, 1 dose, On Mon02/12/24 at 0930, APPROXIMATE TOTAL VOLUME ml - PROTECT FROM LIGHT. EXP: 02/13/2024 1540 RT Run after completion of the liposomal irinotecan infusion. Do not run concurrently with liposomal irinotecan. REFRIGERATE Start: 01-23-2024 End: 01-23-2024 744 mg (400 mg/m2 1.86 m2 Tr eatment Plan BSA from Recorded weight), INTRAVENOUS, Administer over 30 Minutes, ONCE, 1 dose, On Mon01/23/24 at 1030, APPROXIMATE TOTAL VOLUME ml - PROTECT FROM LIGHT. EXP: 01/24/2024 1630 RT Run after completion of the liposomal irinotecan infusion. Do not run concurrently with liposomal irinotecan. REFRIGERATE Start: 01-03-2024 End: 01-03-2024 leucovorin 744 mg in NaCl 0. 9% 95.2 mL Start: 12-11-2023 End: 12-11-2023 leucovorin 744 mg in NaCl 0. 9% 95.2 mL leucovorin 756 mg in NaCl 0. 9% 95.8 mL (2 sources) Start: 10-11-2023 End: 10-11-2023 leucovorin 756 mg in NaCl 0. 9% 95.8 mL Start: 09-13-2023 End: 09-13-2023 leucovorin 756 mg in NaCl 0. 9% 95.8 mL levoFLOXacin 500 mg oral tablet (10 sources) Quinolone Antimicrobial Start: 10-03-2023 End: 10-10-2023 take 1 tablet by mouth once daily levoFLOXacin (LEVAQUIN) 500 mg tablet Take 1 tablet by mouth once daily for 7 days. 7 tablet 10/03/2023 10/10/2023 Start: 04-27-2023 End: 06-07-2023 take 1 tablet by mouth once daily in the morning levoFLOXacin (LEVAQUIN) 500 mg tablet Take 500 mg by mouth every morning. 04/27/2023 06/07/2023 Discontinued (Course of therapy completed) Comment on above: Take 500 mg by mouth every morning. multivit-min/ferrous fumarate (MULTI VITAMIN ORAL) (20 sources) End: 11-20-2023 multivit-min/ferrous fumarate (MULTI VITAMIN ORAL) Take by mouth once daily. 11/20/2023 Discontinued End: 11-20-2023 multivit-min/ferrous fumarat e (MULTI VITAMIN ORAL) Take by mouth once daily. 0 11/20/2023 Discontinued multivit-min/cj everett fumarate (MULTI VITAMIN ORAL) Take by mouth once daily. 0 Active Comment on above: Take by mouth once d aily. 5 ml palonosetron 0.05 mg/ml injection (9 sources) Serotonin-3 Receptor Antagonist Start: 03-05-2024 End: 03-05-2024 0.25 mg, INTRAVENOUS, ONCE, 1 dose, On Mon03/05/24 at 1000, Flush IV line with NS prior to and following administration. Start: 02-12-2024 End: 02-12-2024 0.25 mg, INTRAVENOUS, ONCE, 1 dose, On Mon02/12/24 at 0930, Flush IV line with NS prior to and following administration. Start: 01-23-2024 End: 01-23-2024 0.25 mg, INTRAVENOUS, ONCE, 1 dose, On Mon01/23/24 at 1030, Flush IV line with NS prior to and following administration. Start: 01-03-2024 End: 01-03-2024 palonosetron 0.25 mg injecti on (ALOXI) Start: 12-11-2023 End: 12-11-2023 palonosetron 0.25 mg injecti on (ALOXI) Start: 11-20-2023 End: 11-20-2023 palonosetron 0.25 mg injecti on (ALOXI) Start: 10-31-2023 End: 10-31-2023 palonosetron 0.25 mg injecti on (ALOXI) Start: 10-11-2023 End: 10-11-2023 palonosetron 0.25 mg injecti on (ALOXI) Start: 09-13-2023 End: 09-13-2023 palonosetron 0.25 mg injecti on (ALOXI) sertraline 25 mg oral tablet (20 sources) Serotonin Reuptake Inhibitor Start: 10-03-2023 End: 01-01-2024 take 1 tablet by mouth once daily sertraline (ZOLOFT) 25 mg tablet Take 1 tablet by mouth once daily. 30 tablet 2 10/03/2023 11/20/2023 Discontinued 125 ml sodium chloride 9 mg/ml prefilled syringe (1 source) Start: 01-25-2024 End: 01-25-2024 10-20 mL, INTRAVENOUS, NEEDED, Starting on Elisha 01/25/24 at 1131, Until Elisha 01/25/24 at 1435, See Administration Instructions, If no IVAD access, may place IV if needed for labs or possible treatment. Flush 10-20ml on IV start and as needed. D5W or LR may be used in place of NS for medication that are incompatible (i.e. with oxaliplatin). TRUE METRIX GLUCOSE METER (20 sources) Start: 10-26-2022 End: 06-08-2023 TRUE METRIX GLUCOSE METER use to test BLOOD SUGAR TWICE DAILY 10/26/2022 06/08/2023 Discontinued Start: 10-26-2022 End: 06-08-2023 TRUE METRIX GLUCOSE METER us e to test BLOOD SUGAR TWICE DAILY 0 10/26/2022 06/08/2023 Discontinued Start: 10-26-2022 TRUE METRIX GL UCOSE METER [...] head of pancreas] Onset: 12-20-2019 03-09-2020 Chronic Complication of device; implant or graft (4 sources) Complication of intravascular line; 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: [Unspecified complication of cardiac and vascular prosthetic device, implant and graft, initial encounter] 11-29-2023 Episodic Deficiency and other anemia (1 source) Anemia in neoplastic disease; 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] Onset: 03-12-2021 Chronic Diabetes mellitus with complications (20 sources) Secondary diabetes mellitus; 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] Onset: 06-07-2023 06-07-2023 Chronic Diseases of white blood cells (3 sources) Leukocytosis; 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: [Elevated white blood cell count, unspecified] Onset: 10-25-2022 12-10-2020 Chronic E Codes: Fall (1 source) Fall; 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: [Unspecified fall, initial encounter] 12-15-2022 Episodic Essential hypertension (2 sources) Benign essential hypertension; 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: [Essential (primary) hypertension] Onset: 10-27-2009 10-25-2022 Chronic Fluid and electrolyte disorders (1 source) Acute hyponatremia; 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: [Hypo-osmolality and hyponatremia] 12-10-2020 Episodic Gastroduodenal ulcer (except hemorrhage) (2 sources) Ulcer of duodenum; 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: [Duodenal ulcer, unspecified as acute or chronic, without hemorrhage or perforation] Onset: 10-25-2022 10-25-2022 Chronic Hyperplasia of prostate (4 sources) Benign prostatic hyperplasia; 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: [Benign prostatic [...] Onset: 05-25-2021 Episodic Other aftercare (1 source) half-way (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; 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: [[facility] CURRNT USE ANTICOAGULANTS] Onset: 06-23-2021 Episodic Other [...] dyspnea] 12-21-2022 Episodic Other lower respiratory disease (4 sources) Cough; 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: [Acute cough] 10-03-2023 Episodic Other nervous system disorders (2 sources) Disorder of muscle; 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: [Myopathy, unspecified] Onset: 10-25-2022 10-25-2022 Chronic Other nervous system disorders (9 sources) Neuropathy; 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: [Polyneuropathy, unspecified] Onset: 10-25-2022 10-25-2022 Chronic Pancreatic disorders (not diabetes) (1 source) Chronic pancreatitis; 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: [Other chronic pancreatitis] 02-15-2022 Chronic Peripheral and visceral atherosclerosis (1 source) Atherosclerosis of aorta; 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: [Atherosclerosis of aorta] Onset: 10-27-2023 10-27-2023 Chronic Residual codes; unclassified (20 sources) Obstructive sleep apnea syndrome; 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: [Obstructive sleep apnea (adult) (pediatric)] Onset: 10-27-2009 03-09-2020 Chronic Residual codes; unclassified (1 source) Acquired total absence of pancreas; 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] Onset: 02-05-2021 Chronic Residual codes; unclassified (2 sources) Dependence on wheelchair; 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: [Dependence on wheelchair] Onset: 10-25-2022 10-25-2022 Chronic Secondary malignancies (1 source) Secondary malignant neoplasm of intra-abdominal lymph nodes; 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: [Secondary and unspecified malignant neoplasm of intra-abdominal lymph nodes] Onset: 10-27-2023 10-27-2023 Chronic Skin and subcutaneous tissue infections (2 sources) Cutaneous abscess, unspecified; 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: [Cellulitis] Onset: 02-05-2021 11-02-2023 Episodic Substance-related disorders (2 sources) Tobacco dependence syndrome; 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: [Nicotine dependence, unspecified, uncomplicated] Onset: 10-25-2022 10-25-2022 Chronic Unclassified (2 sources) CONTACT W/AND (SUSP) EXPOS COVID-19; 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: [CONTACT W/AND (SUSP) EXPOS COVID-19] Onset: 04-01-2021 Unclassified (1 source) Acute cough; 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: [Acute [...] 12-04-2019 03-09-2020 Episodic Diabetes mellitus without complication (17 sources) Type 2 diabetes mellitus without complications; 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: [Type 2 diabetes mellitus without complication] Onset: 03-04-2021 Resolved: 10-27-2023 Chronic Diabetes mellitus without complication (2 sources) Abnormal glucose tolerance test; 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: [Other abnormal glucose] Onset: 10-27-2009 Resolved: 10-27-2023 10-25-2022 Episodic Genitourinary symptoms and ill-defined conditions (20 sources) Acute retention of urine ; 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: [Other retention of urine] Onset: 12-26-2020 12-26-2020 Episodic Noninfectious gastroenteritis (20 sources) Colitis; 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: [Noninfective gastroenteritis and colitis, unspecified] Onset: 12-03-2020 12-04-2020 Episodic Nutritional deficiencies (4 sources) Deficiency of macronutrients; 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: [Nutritional deficiency, [...] sources) Long-term current use of anticoagulant; 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: [half-way (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] Onset: 04-07-2020 12-04-2020 Episodic Other aftercare (20 sources) Long-term current use of insulin; 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: [half-way (current) use of insulin] Onset: 05-08-2020 05-08-2020 Episodic Other circulatory disease (1 source) Orthostatic hypotension; 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: [Orthostatic hypotension] Onset: 10-27-2023 10-27-2023 Episodic Other disorders of stomach and duodenum (20 sources) Pyloric obstruction; 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: [Adult hypertrophic pyloric stenosis] Onset: 11-20-2019 03-09-2020 Episodic Other disorders of stomach and duodenum (1 source) Adult hypertrophic pyloric stenosis; 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: [ADULT HYPERTROPHIC PYLORIC STENOSIS] Onset: 03-12-2021 Episodic Other gastrointestinal disorders (2 sources) Constipation; 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: [Constipation, unspecified] Onset: 10-25-2022 10-25-2022 Episodic Other nutritional; endocrine; and metabolic disorders (20 sources) Obese class II; 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: [Obesity, unspecified] [...] procedure] Onset: 02-05-2021 Episodic Residual codes; unclassified (2 sources) Edema; 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: [Edema, unspecified] Onset: 10-27-2009 10-25-2022 Episodic Screening and history of mental health and substance abuse codes (20 sources) Ex-smoker; 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: [Personal history of nicotine dependence] Onset: 12-04-2019 05-08-2020 Episodic Septicemia (except in labor) (20 sources) Sepsis, unspecified organism; 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: [Sepsis] Onset: 03-09-2020 Resolved: 03-13-2020 03-13-2020 Episodic Unclassified (1 source) CONTACT W/AND (SUSP) EXPOS COVID-19; 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: [CONTACT W/AND (SUSP) EXPOS COVID-19] Onset: 03-25-2021 Results Test Name Value Interpretation Reference Range [facility] 03-18-2024 [facility] Normal [facility] 03-07-2024 [facility] Normal [facility] CBC W Auto Differential pane l (Bld)on 03-05-2024 Basophils (Bld) [#/Vol] [facility] Differential cell count method Nom (Bld) Auto [facility] Eosinophils (Bld) [#/Vol] 0.04 10*3/uL [facility] Immature granulocytes (Bld) [#/Vol] 0.04 10*3/uL [facility] Immature granulocytes/100 WBC (Bld) 0.8 % [facility] Lymphocytes (Bld) [#/Vol] 1.62 10*3/uL [facility] Monocytes (Bld) [#/Vol] 0.91 10*3/uL High [facility] Neutrophils (Bld) [#/Vol] 2.67 10*3/uL [facility] Nucleated RBC (Bld) [#/Vol] [facility] Nucleated RBC/100 WBC (Bld) [Ratio] 0.0 % /100 WBC [facility] Platelet mean volume (Bld) [Entitic vol] 8.9 fL Low 9.0 - 12.7 fL [facility] Platelets (Bld) [#/Vol] 301 10*3/uL [facility] WBC (Bld) [#/Vol] 5.30 10*3/uL [facility] Basophils (Bld) [#/Vol] 10*3/uL Normal <0.11 [facility] Comment on above: Order Comment: Speci men Type: BLOOD SPECIMENOrdering Facility: [facility] Address: [address] [place] [address] Performed By: #### 5 7021-8 ####[facility] LABCLIA [id number] [place] [address] Basophils/100 WBC (Bld) 0.4 % Normal [facility] Comment on above: Order Comment: Speci men Type: BLOOD SPECIMENOrdering Facility: [facility] Address: [address] [place] [address] Performed By: #### 5 7021-8 ####[facility] LABCLIA [id number] [place] [address] Differential cell count method Nom (Bld) Auto Normal [facility] Comment on above: Order Comment: Speci men Type: BLOOD SPECIMENOrdering Facility: [facility] Address: [address] [place] [address] Performed By: #### 5 7021-8 ####[facility] LABCLIA [id number] [place] [address] Eosinophils (Bld) [#/Vol] 0.04 10*3/uL Normal <0.46 [facility] Comment on above: Order Comment: Speci men Type: BLOOD SPECIMENOrdering Facility: [facility] Address: [address] [place] [address] Performed By: #### 5 7021-8 ####[facility] LABCLIA [id number] [place] [address] Eosinophils/100 WBC (Bld) 0.8 % Normal [facility] Comment on above: Order Comment: Speci men Type: BLOOD SPECIMENOrdering Facility: [facility] Address: [address] [place] [address] Performed By: #### 5 7021-8 ####[facility] LABCLIA [id number] [place] [address] Erythrocyte distribution width (RBC) [Ratio] 16.4 % High 11.5-15.0 [facility] Comment on above: Order Comment: Speci men Type: BLOOD SPECIMENOrdering Facility: [facility] Address: [address] [place] [address] Performed By: #### 5 7021-8 ####[facility] LABCLIA [id number] [place] [address] Hematocrit (Bld) [Volume fraction] 35.6 % Low 39.0-51.0 [facility] Comment on above: Order Comment: Speci men Type: BLOOD SPECIMENOrdering Facility: [facility] Address: [address] [place] [address] Performed By: #### 5 7021-8 ####[facility] LABCLIA [id number] [place] [address] Hemoglobin (Bld) [Mass/Vol] 11.6 g/dL Low 13.0-17.0 [facility] Comment on above: Order Comment: Speci men Type: BLOOD SPECIMENOrdering Facility: [facility] Address: [address] [place] [address] Performed By: #### 5 7021-8 ####[facility] LABCLIA [id number] [place] [address] Immature granulocytes (Bld) [#/Vol] 0.04 10*3/uL Normal <0.10 [facility] Comment on above: Order Comment: Speci men Type: BLOOD SPECIMENOrdering Facility: [facility] Address: [address] [place] [address] Performed By: #### 5 7021-8 ####[facility] LABCLIA [id number] [place] [address] Immature granulocytes/100 WBC (Bld) 0.8 % Normal [facility] Comment on above: Order Comment: Speci men Type: BLOOD SPECIMENOrdering Facility: [facility] Address: [address] [place] [address] Performed By: #### 5 7021-8 ####[facility] LABCLIA [id number] [place] [address] Lymphocytes (Bld) [#/Vol] 1.62 10*3/uL Normal 1.00-4.00 [facility] Comment on above: Order Comment: Speci men Type: BLOOD SPECIMENOrdering Facility: [facility] Address: [address] [place] [address] Performed By: #### 5 7021-8 ####[facility] LABCLIA [id number] [place] [address] Lymphocytes/100 WBC (Bld) 30.6 % Normal [facility] Comment on above: Order Comment: Speci men Type: BLOOD SPECIMENOrdering Facility: [facility] Address: [address] [place] [address] Performed By: #### 5 7021-8 ####[facility] LABCLIA [id number] [place] [address] MCH (RBC) [Entitic mass] 30.4 pg Normal 26.0-34.0 [facility] Comment on above: Order Comment: Speci men Type: BLOOD SPECIMENOrdering Facility: [facility] Address: [address] [place] [address] Performed By: #### 5 7021-8 ####[facility] LABCLIA [id number] [place] [address] MCHC (RBC) [Mass/Vol] 32.6 g/dL Normal 30.5-36.0 [facility] Comment on above: Order Comment: Speci men Type: BLOOD SPECIMENOrdering Facility: [facility] Address: [address] [place] [address] Performed By: #### 5 7021-8 ####[facility] LABCLIA [id number] [place] [address] MCV (RBC) [Entitic vol] 93.4 fL Normal 80.0-100.0 [facility] Comment on above: Order Comment: Speci men Type: BLOOD SPECIMENOrdering Facility: [facility] Address: [address] [place] [address] Performed By: #### 5 7021-8 ####[facility] LABCLIA [id number] [place] [address] Monocytes (Bld) [#/Vol] 0.91 10*3/uL High <0.87 [facility] Comment on above: Order Comment: Speci men Type: BLOOD SPECIMENOrdering Facility: [facility] Address: [address] [place] [address] Performed By: #### 5 7021-8 ####[facility] LABCLIA [id number] [place] [address] Monocytes/100 WBC (Bld) 17.2 % Normal [facility] Comment on above: Order Comment: Speci men Type: BLOOD SPECIMENOrdering Facility: [facility] Address: [address] [place] [address] Performed By: #### 5 7021-8 ####[facility] LABCLIA [id number] [place] [address] Neutrophils (Bld) [#/Vol] 2.67 10*3/uL Normal 1.45-7.50 [facility] Comment on above: Order Comment: Speci men Type: BLOOD SPECIMENOrdering Facility: [facility] Address: [address] [place] [address] Performed By: #### 5 7021-8 ####[facility] LABCLIA [id number] [place] [address] Neutrophils/100 WBC (Bld) 50.2 % Normal [facility] Comment on above: Order Comment: Speci men Type: BLOOD SPECIMENOrdering Facility: [facility] Address: [address] [place] [address] Performed By: #### 5 7021-8 ####[facility] LABCLIA [id number] [place] [address] Nucleated RBC (Bld) [#/Vol] 10*3/uL Normal <0.01 [facility] Comment on above: Order Comment: Speci men Type: BLOOD SPECIMENOrdering Facility: [facility] Address: [address] [place] [address] Performed By: #### 5 7021-8 ####[facility] LABCLIA [id number] [place] [address] Nucleated RBC/100 WBC (Bld) [Ratio] 0.0 /100 WBC Normal [facility] Comment on above: Order Comment: Speci men Type: BLOOD SPECIMENOrdering Facility: [facility] Address: [address] [place] [address] Performed By: #### 5 7021-8 ####[facility] LABCLIA [id number] [place] [address] Platelet mean volume (Bld) [Entitic vol] 8.9 fL Low 9.0-12.7 [facility] Comment on above: Order Comment: Speci men Type: BLOOD SPECIMENOrdering Facility: [facility] Address: [address] [place] [address] Performed By: #### 5 7021-8 ####[facility] LABCLIA [id number] [place] [address] Platelets (Bld) [#/Vol] 301 10*3/uL Normal 150-400 [facility] Comment on above: Order Comment: Speci men Type: BLOOD SPECIMENOrdering Facility: [facility] Address: [address] [place] [address] Performed By: #### 5 7021-8 ####[facility] LABCLIA [id number] [place] [address] RBC (Bld) [#/Vol] 3.81 10*6/uL Low 4.20-6.00 [facility] Comment on above: Order Comment: Speci men Type: BLOOD SPECIMENOrdering Facility: [facility] Address: [address] [place] [address] Performed By: #### 5 7021-8 ####[facility] LABIA [id number] [place] [address] WBC (Bld) [#/Vol] 5.30 10*3/uL Normal 3.70-11.00 [facility] Comment on above: Order Comment: Speci men Type: BLOOD SPECIMENOrdering Facility: [facility] Address: [address] [place] [address] Performed By: #### 5 7021-8 ####ESEQUIEL [facility] LABIA [id number] [place] [address] [facility] CBC W AUTO DIFF BLDon [facility] BASOPHILS # BLD AUTO <0.03 [facility] DIFFERENTIAL METHOD BLD Auto [facility] EOSINOPHIL # BLD AUTO 0.04 [facility] LYMPHOCYTES # BLD AUTO 1.62 [facility] MONOCYTES # BLD AUTO 0.91 High [facility] NEUTROPHILS # BLD AUTO 2.67 [facility] NRBC # BLD AUTO <0.01 [facility] NRBC/100 WBC BLD-RTO 0 /100 WBC [facility] PLATELET # BLD AUTO 301 [facility] PMV BLD AUTO 8.9 fL Low 9.0 - 12.7 fL [facility] WBC # BLD AUTO 5.3 [facility] IMM GRANULOCYTES # BLD AUTO 0.04 [facility] IMM GRANULOCYTES/LEUK NFR BLD AUTO 0.8 % [facility] Specimen Type: BLOOD SPECIMEN [facility] Address: [address] [place] [address] Original Ordering Provider: VIVEK CASTILLOISYJULI CNOVSPon 03-05-2024 CNOVSP Normal [facility] Cancer Ag19-9 SerPl-aCncon 1 Cancer Ag 19-9 Qn 385.0 [arb'U]/mL High <36.0 C [facility] Comment on above: Order Comment: Speci men Type: BLOOD SPECIMENOrdering Facility: [facility] Address: [address] [place] [address] Result Comment: [facility] er antigen 19-9 test is used as an aid in monitoring response to treatment or recurrence in patients with established pancreatic, hepatobiliary, or gastrointestinal malignancies. Clinical correlation is required.The CA 19-9 Antigen test was performed using the [employer] Unicel DXI paramagnetic particle chemiluminescent immunoassay method. Results obtained with different assay methods or kits cannot be used interchangeably. Performed By: #### 2 4108-3 ####[facility] LABCLIA [id number] [place] [address] [place] [facility] Comprehensive metabolic 2000 panelOrdered By: Elizabeth Yu on 03-05-2024 Albumin [Mass/Vol] 3.9 g/dL 3.9 - 4.9 g/dL [facility] ALP [Catalytic activity/Vol] 177 U/L High 38 - 113 U/L [facility] ALT [Catalytic activity/Vol] 17 U/L 10 - 54 U/L [facility] Anion gap [Moles/Vol] 11 mmol/L 8 - 15 mmol/L [facility] AST [Catalytic activity/Vol] 19 U/L 14 - 40 U/L [facility] Bilirubin [Mass/Vol] 0.7 mg/dL 0.2 - 1 .3 mg/dL [facility] Calcium [Mass/Vol] 10.2 mg/dL 8.5 - 10. 2 mg/dL [facility] Chloride [Moles/Vol] 105 mmol/L 98 - 10 7 mmol/L [facility] CO2 [Moles/Vol] 22 mmol/L 22 - 30 mmol/L [facility] Creatinine [Mass/Vol] 0.81 mg/dL 0.73 - 1.22 mg/dL [facility] GFR/1.73 sq M.predicted among non-blacks MDRD (S/P/Bld) [Vol rate/Area] 94 mL/min/{1.73_m2} - PINF [facility] Comment on above: Estimated Glomerular Filtration [...] not accurately reflect actual GFR. Glucose [Mass/Vol] 163 mg/dL High 74 - 99 mg/dL [facility] Comment on above: The [place] [employer] Association (ADA) provides guidance for [...] Standards of Medical Care in Diabetes 2016, [place] [employer]. Diabetes Care. 2016.39(Suppl 1). Interpretation and review of laboratory results Abnormal [facility] Potassium [Moles/Vol] 4.4 mmol/L 3.7 - 5.1 mmol/L [facility] Protein [Mass/Vol] 6.8 g/dL 6.3 - 8.0 g/dL [facility] Sodium [Moles/Vol] 138 mmol/L 136 - 144 mmol/L [facility] Urea nitrogen [Mass/Vol] 14 mg/dL 9 - 24 mg/dL [facility] Comprehensive metabolic 2000 panelon 03-05-2024 Albumin [Mass/Vol] 3.9 g/dL Normal 3.9-4.9 [facility] Comment on above: Order Comment: Speci men Type: BLOOD SPECIMENOrdering Facility: [facility] Address: [address] [place] [address] Performed By: #### 2 4323-8 ####[facility] LABCLIA [id number] [place] [address] ALP [Catalytic activity/Vol] 177 U/L High 38-113 [facility] Comment on above: Order Comment: Speci men Type: BLOOD SPECIMENOrdering Facility: [facility] Address: [address] [place] [address] Performed By: #### 2 4323-8 ####[facility] LABCLIA [id number] [place] [address] ALT [Catalytic activity/Vol] 17 U/L Normal 10-54 [facility] Comment on above: Order Comment: Speci men Type: BLOOD SPECIMENOrdering Facility: [facility] Address: [address] [place] [address] Performed By: #### 2 4323-8 ####[facility] LABCLIA [id number] [place] [address] Anion gap [Moles/Vol] 11 mmol/L Normal 8-15 [facility] Comment on above: Order Comment: Speci men Type: BLOOD SPECIMENOrdering Facility: [facility] Address: [address] [place] [address] Performed By: #### 2 4323-8 ####[facility] LABCLIA [id number] [place] [address] AST [Catalytic activity/Vol] 19 U/L Normal 14-40 [facility] Comment on above: Order Comment: Speci men Type: BLOOD SPECIMENOrdering Facility: [facility] Address: [address] [place] [address] Performed By: #### 2 4323-8 ####[facility] LABCLIA [id number] [place] [address] Bilirubin [Mass/Vol] 0.7 mg/dL Normal 0.2-1.3 [facility] Comment on above: Order Comment: Speci men Type: BLOOD SPECIMENOrdering Facility: [facility] Address: [address] [place] [address] Performed By: #### 2 4323-8 ####[facility] LABCLIA [id number] [place] [address] Calcium [Mass/Vol] 10.2 mg/dL Normal 8.5-10.2 [facility] Comment on above: Order Comment: Speci men Type: BLOOD SPECIMENOrdering Facility: [facility] Address: [address] [place] [address] Performed By: #### 2 4323-8 ####[facility] LABCLIA [id number] [place] [address] Chloride [Moles/Vol] 105 mmol/L Normal 98-107 [facility] Comment on above: Order Comment: Speci men Type: BLOOD SPECIMENOrdering Facility: [facility] Address: [address] [place] [address] Performed By: #### 2 4323-8 ####[facility] LABCLIA [id number] [place] [address] CO2 [Moles/Vol] 22 mmol/L Normal 22-30 [facility] Comment on above: Order Comment: Speci men Type: BLOOD SPECIMENOrdering Facility: [facility] Address: [address] [place] [address] Performed By: #### 2 4323-8 ####[facility] LABCLIA [id number] [place] [address] Creatinine [Mass/Vol] 0.81 mg/dL Normal 0.73-1.22 [facility] Comment on above: Order Comment: Speci men Type: BLOOD SPECIMENOrdering Facility: [facility] Address: [address] [place] [address] Performed By: #### 2 4323-8 ####[facility] LABIA [id number] [place] [address] Creatinine and Glomerular filtration rate.predicted panel (S/P/Bld) 94 mL/min/1.73m??? Normal >=60 [facility] Comment on above: Order Comment: Speci men Type: BLOOD SPECIMENOrdering Facility: [facility] Address: [address] [place] [address] Result Comment: Kathy mated Glomerular Filtration Rate [...] actual GFR. Performed By: #### 2 4323-8 ####[facility] LABCLIA [id number] [place] [address] Glucose [Mass/Vol] 163 mg/dL High 74-99 [facility] Comment on above: Order Comment: Noemí hoff Type: BLOOD SPECIMENOrdering Facility: [facility] Address: [address] [place] [address] Result Comment: The [place] [employer] (ADA) provides guidance for cutoff [...] Standards of Medical Care in Diabetes 2016, [place] [employer]. Diabetes Care. 2016.39(Suppl 1). Performed By: #### 2 4323-8 ####[facility] LABCLIA [id number] [place] [address] Potassium [Moles/Vol] 4.4 mmol/L Normal 3.7-5.1 [facility] Comment on above: Order Comment: Noemí hoff Type: BLOOD SPECIMENOrdering Facility: [facility] Address: [address] [id number] Performed By: #### 2 4323-8 ####[facility] LABCLIA [id number] [place] [address] Protein [Mass/Vol] 6.8 g/dL Normal 6.3-8.0 [facility] Comment on above: Order Comment: Speci men Type: BLOOD SPECIMENOrdering Facility: [facility] Address: [address] [place] [address] Performed By: #### 2 4323-8 ####[facility] LABCLIA [id number] [place] [address] Sodium [Moles/Vol] 138 mmol/L Normal 136-144 [facility] Comment on above: Order Comment: Speci men Type: BLOOD SPECIMENOrdering Facility: [facility] Address: [address] [place] [address] Performed By: #### 2 4323-8 ####[facility] LABCLIA [id number] [place] [id number] Urea nitrogen [Mass/Vol] 14 mg/dL Normal 9-24 [facility] Comment on above: Order Comment: Speci men Type: BLOOD SPECIMENOrdering Facility: [facility] Address: [address] [place] [address] Performed By: #### 2 4323-8 ####[facility] LABCLIA [id number] [place] [address] Laboratory - Hematology and Cell countson 03-05-2024 Basophils/100 WBC (Bld) 0.4 % [facility] Eosinophils/100 WBC (Bld) 0.8 % [facility] Erythrocyte distribution width (RBC) [Ratio] 16.4 % High 11.5 - 15.0 % [facility] Hematocrit (Bld) [Volume fraction] 35.6 % Low 39.0 - 51.0 % [facility] Hemoglobin (Bld) [Mass/Vol] 11.6 g/dL Low 13.0 - 17.0 g/dL [facility] Lymphocytes/100 WBC (Bld) 30.6 % [facility] MCH (RBC) [Entitic mass] 30.4 pg 26.0 - 34.0 pg [facility] MCHC (RBC) [Mass/Vol] 32.6 g/dL 30.5 - 36.0 g/dL [facility] MCV (RBC) [Entitic vol] 93.4 fL 80.0 - 100.0 fL [facility] Monocytes/100 WBC (Bld) 17.2 % [facility] Neutrophils/100 WBC (Bld) 50.2 % [facility] RBC (Bld) [#/Vol] 3.81 10*6/uL Low 4.20 - 6.0 0 m/uL [facility] No Panel Informationon 03-05 Interpretation and review of laboratory results Abnormal [facility] CBC W Auto Differential pane l (Bld)on 02-12-2024 Basophils (Bld) [#/Vol] [facility]F [facility] Basophils/100 WBC (Bld) 0.4 % [facility] Differential cell count method Nom (Bld) Auto [facility] Eosinophils (Bld) [#/Vol] 0.06 10*3/uL [facility] Eosinophils/100 WBC (Bld) 1.3 % [facility] Erythrocyte distribution width (RBC) [Ratio] 16.0 % High 11.5 - 15.0 % [facility] Hematocrit (Bld) [Volume fraction] 34.0 % Low 39.0 - 51.0 % [facility] Hemoglobin (Bld) [Mass/Vol] 11.3 g/dL Low 13.0 - 17.0 g/dL [facility] Immature granulocytes (Bld) [#/Vol] [facility]F [facility] Immature granulocytes/100 WBC (Bld) 0.4 % [facility] Interpretation and review of laboratory results Abnormal [facility] Lymphocytes (Bld) [#/Vol] 1.65 10*3/uL [facility] Lymphocytes/100 WBC (Bld) 35.9 % [facility] MCH (RBC) [Entitic mass] 30.5 pg 26.0 - 34.0 pg [facility] MCHC (RBC) [Mass/Vol] 33.2 g/dL 30.5 - 36.0 g/dL [facility] MCV (RBC) [Entitic vol] 91.9 fL 80.0 - 100.0 fL [facility] Monocytes (Bld) [#/Vol] 0.63 10*3/uL [facility]F [facility] Monocytes/100 WBC (Bld) 13.7 % [facility] Neutrophils (Bld) [#/Vol] 2.22 10*3/uL [facility] Neutrophils/100 WBC (Bld) 48.3 % [facility] Nucleated RBC (Bld) [#/Vol] NINF [facility] Nucleated RBC/100 WBC (Bld) [Ratio] 0.0 % /100 WBC [facility] Platelet mean volume (Bld) [Entitic vol] 9.0 fL 9.0 - 12.7 fL [facility] Platelets (Bld) [#/Vol] 291 10*3/uL [facility] RBC (Bld) [#/Vol] 3.70 10*6/uL Low 4.20 - 6.0 0 m/uL [facility] WBC (Bld) [#/Vol] 4.60 10*3/uL [facility] Basophils (Bld) [#/Vol] 10*3/uL Normal <0.11 [facility] Comment on above: Order Comment: Speci men Type: BLOOD SPECIMENOrdering Facility: [facility] Address: [address] [place] [address] Performed By: #### 5 7021-8 ####[facility] LABCLIA [id number] [place] [address] Basophils/100 WBC (Bld) 0.4 % Normal [facility] Comment on above: Order Comment: Speci men Type: BLOOD SPECIMENOrdering Facility: [facility] Address: [address] [place] [address] Performed By: #### 5 7021-8 ####[facility] LABCLIA [id number] [place] [address] Differential cell count method Nom (Bld) Auto Normal [facility] Comment on above: Order Comment: Speci men Type: BLOOD SPECIMENOrdering Facility: [facility] Address: [address] [place] [address] Performed By: #### 5 7021-8 ####[facility] LABCLIA [id number] [place] [address] Eosinophils (Bld) [#/Vol] 0.06 10*3/uL Normal <0.46 [facility] Comment on above: Order Comment: Speci men Type: BLOOD SPECIMENOrdering Facility: [facility] Address: [address] [place] [address] Performed By: #### 5 7021-8 ####[facility] LABCLIA [id number] [place] [address] Eosinophils/100 WBC (Bld) 1.3 % Normal [facility] Comment on above: Order Comment: Speci men Type: BLOOD SPECIMENOrdering Facility: [facility] Address: [address] [place] [address] Performed By: #### 5 7021-8 ####[facility] LABCLIA [id number] [place] [address] Erythrocyte distribution width (RBC) [Ratio] 16.0 % High 11.5-15.0 [facility] Comment on above: Order Comment: Speci men Type: BLOOD SPECIMENOrdering Facility: [facility] Address: [address] [place] [address] Performed By: #### 5 7021-8 ####[facility] LABCLIA [id number] [place] [address] Hematocrit (Bld) [Volume fraction] 34.0 % Low 39.0-51.0 [facility] Comment on above: Order Comment: Speci men Type: BLOOD SPECIMENOrdering Facility: [facility] Address: [address] [place] [address] Performed By: #### 5 7021-8 ####[facility] LABCLIA [id number] [place] [address] Hemoglobin (Bld) [Mass/Vol] 11.3 g/dL Low 13.0-17.0 [facility] Comment on above: Order Comment: Speci men Type: BLOOD SPECIMENOrdering Facility: [facility] Address: [address] [place] [address] Performed By: #### 5 7021-8 ####[facility] LABCLIA [id number] [place] [address] Immature granulocytes (Bld) [#/Vol] 10*3/uL Normal <0.10 [facility] Comment on above: Order Comment: Speci men Type: BLOOD SPECIMENOrdering Facility: [facility] Address: [address] [place] [address] Performed By: #### 5 7021-8 ####[facility] LABCLIA [id number] [place] [address] Immature granulocytes/100 WBC (Bld) 0.4 % Normal [facility] Comment on above: Order Comment: Speci men Type: BLOOD SPECIMENOrdering Facility: [facility] Address: [address] [place] [address] Performed By: #### 5 7021-8 ####[facility] LABCLIA [id number] [place] [address] Lymphocytes (Bld) [#/Vol] 1.65 10*3/uL Normal 1.00-4.00 [facility] Comment on above: Order Comment: Speci men Type: BLOOD SPECIMENOrdering Facility: [facility] Address: [address] [place] [address] Performed By: #### 5 7021-8 ####[facility] LABCLIA [id number] [place] [address] Lymphocytes/100 WBC (Bld) 35.9 % Normal [facility] Comment on above: Order Comment: Speci men Type: BLOOD SPECIMENOrdering Facility: [facility] Address: [address] [place] [address] Performed By: #### 5 7021-8 ####[facility] LABCLIA [id number] [place] [address] MCH (RBC) [Entitic mass] 30.5 pg Normal 26.0-34.0 [facility] Comment on above: Order Comment: Speci men Type: BLOOD SPECIMENOrdering Facility: [facility] Address: [address] [place] [address] Performed By: #### 5 7021-8 ####[facility] LABCLIA [id number] [place] [address] MCHC (RBC) [Mass/Vol] 33.2 g/dL Normal 30.5-36.0 [facility] Comment on above: Order Comment: Speci men Type: BLOOD SPECIMENOrdering Facility: [facility] Address: [address] [place] [address] Performed By: #### 5 7021-8 ####[facility] LABCLIA [id number] [place] [address] MCV (RBC) [Entitic vol] 91.9 fL Normal 80.0-100.0 [facility] Comment on above: Order Comment: Speci men Type: BLOOD SPECIMENOrdering Facility: [facility] Address: [address] [place] [address] Performed By: #### 5 7021-8 ####[facility] LABCLIA [id number] [place] [address] Monocytes (Bld) [#/Vol] 0.63 10*3/uL Normal <0.87 [facility] Comment on above: Order Comment: Speci men Type: BLOOD SPECIMENOrdering Facility: [facility] Address: [address] [place] [address] Performed By: #### 5 7021-8 ####[facility] LABCLIA [id number] [place] [address] Monocytes/100 WBC (Bld) 13.7 % Normal [facility] Comment on above: Order Comment: Speci men Type: BLOOD SPECIMENOrdering Facility: [facility] Address: [address] [place] [address] Performed By: #### 5 7021-8 ####[facility] LABCLIA [id number] [place] [address] Neutrophils (Bld) [#/Vol] 2.22 10*3/uL Normal 1.45-7.50 [facility] Comment on above: Order Comment: Speci men Type: BLOOD SPECIMENOrdering Facility: [facility] Address: [address] [place] [address] Performed By: #### 5 7021-8 ####[facility] LABCLIA [id number] [place] [address] Neutrophils/100 WBC (Bld) 48.3 % Normal [facility] Comment on above: Order Comment: Speci men Type: BLOOD SPECIMENOrdering Facility: [facility] Address: [address] [place] [address] Performed By: #### 5 7021-8 ####[facility] LABCLIA [id number] [place] [address] Nucleated RBC (Bld) [#/Vol] 10*3/uL Normal <0.01 [facility] Comment on above: Order Comment: Speci men Type: BLOOD SPECIMENOrdering Facility: [facility] Address: [address] [place] [address] Performed By: #### 5 7021-8 ####[facility] LABCLIA [id number] [place] [address] Nucleated RBC/100 WBC (Bld) [Ratio] 0.0 /100 WBC Normal [facility] Comment on above: Order Comment: Speci men Type: BLOOD SPECIMENOrdering Facility: [facility] Address: [address] [place] [address] Performed By: #### 5 7021-8 ####[facility] LABCLIA [id number] [place] [address] Platelet mean volume (Bld) [Entitic vol] 9.0 fL Normal 9.0-12.7 [facility] Comment on above: Order Comment: Speci men Type: BLOOD SPECIMENOrdering Facility: [facility] Address: [address] [place] [address] Performed By: #### 5 7021-8 ####[facility] LABCLIA [id number] [place] [address] Platelets (Bld) [#/Vol] 291 10*3/uL Normal 150-400 [facility] Comment on above: Order Comment: Speci men Type: BLOOD SPECIMENOrdering Facility: [facility] Address: [address] [place] [address] Performed By: #### 5 7021-8 ####[facility] LABCLIA [id number] [place] [address] RBC (Bld) [#/Vol] 3.70 10*6/uL Low 4.20-6.00 [facility] Comment on above: Order Comment: Speci men Type: BLOOD SPECIMENOrdering Facility: [facility] Address: [address] [place] [address] Performed By: #### 5 7021-8 ####[facility] LABIA [id number] [place] [address] WBC (Bld) [#/Vol] 4.60 10*3/uL Normal 3.70-11.00 [facility] Comment on above: Order Comment: Speci men Type: BLOOD SPECIMENOrdering Facility: [facility] Address: [address] [place] [address] Performed By: #### 5 7021-8 ####[facility] LABIA [id number] [place] [address] CNOVSPon 02-12-2024 CNOVSP Normal [facility] Cancer Ag19-9 SerPl-aCncon 0 02-12-2024 Cancer Ag 19-9 Qn 371.0 [arb'U]/mL High <36.0 C [facility] Comment on above: Order Comment: Speci men Type: BLOOD SPECIMENOrdering Facility: [facility] Address: [address] [place] [address] Result Comment: Canc er antigen 19-9 test [...] used interchangeably. Performed By: #### 2 4108-3 ####[facility] LABCLIA [id number] [address] [place] Comprehensive metabolic 2000 panelOrdered By: Elizabeth Yu on 02-12-2024 Albumin [Mass/Vol] 4.1 g/dL 3.9 - 4.9 g/dL [facility] ALP [Catalytic activity/Vol] 184 U/L High 38 - 113 U/L [facility] ALT [Catalytic activity/Vol] 12 U/L 10 - 54 U/L [facility] Anion gap [Moles/Vol] 11 mmol/L 8 - 15 mmol/L [facility] AST [Catalytic activity/Vol] 12 U/L Low 14 - 40 U/L [facility] Bilirubin [Mass/Vol] 0.7 mg/dL 0.2 - 1 .3 mg/dL [facility] Calcium [Mass/Vol] 10.6 mg/dL High 8.5 - 10. 2 mg/dL [facility] Chloride [Moles/Vol] 104 mmol/L 98 - 10 7 mmol/L [facility] CO2 [Moles/Vol] 23 mmol/L 22 - 30 mmol/L [facility] Creatinine [Mass/Vol] 0.80 mg/dL 0.73 - 1.22 mg/dL [facility] GFR/1.73 sq M.predicted among non-blacks MDRD (S/P/Bld) [Vol rate/Area] 94 mL/min/{1.73_m2} - PINF [facility] Comment on above: Estimated Glomerular Filtration [...] not accurately reflect actual GFR. Glucose [Mass/Vol] 201 mg/dL High 74 - 99 mg/dL [facility] Comment on above: The [place] [employer] (ADA) provides guidance for [...] Standards of Medical Care in Diabetes 2016, [place] [employer]. Diabetes Care. 2016.39(Suppl 1). Interpretation and review of laboratory results Abnormal [facility] Potassium [Moles/Vol] 4.5 mmol/L 3.7 - 5.1 mmol/L [facility] Protein [Mass/Vol] 6.8 g/dL 6.3 - 8.0 g/dL [facility] Sodium [Moles/Vol] 138 mmol/L 136 - 144 mmol/L [facility] Urea nitrogen [Mass/Vol] 12 mg/dL 9 - 24 mg/dL [facility] Comprehensive metabolic 2000 panelon 02-12-2024 Albumin [Mass/Vol] 4.1 g/dL Normal 3.9-4.9 [facility] Comment on above: Order Comment: Speci men Type: BLOOD SPECIMENOrdering Facility: [facility] Address: [address] [place] [address] Performed By: #### 2 4323-8 ####[facility] LABCLIA [id number] [place] [address] ALP [Catalytic activity/Vol] 184 U/L High 38-113 [facility] Comment on above: Order Comment: Speci men Type: BLOOD SPECIMENOrdering Facility: [facility] Address: [address] [place] [address] Performed By: #### 2 4323-8 ####[facility] LABCLIA [id number] [place] [address] ALT [Catalytic activity/Vol] 12 U/L Normal 10-54 [facility] Comment on above: Order Comment: Speci men Type: BLOOD SPECIMENOrdering Facility: [facility] Address: [address] [place] [address] Performed By: #### 2 4323-8 ####[facility] LABCLIA [id number] [place] [address] Anion gap [Moles/Vol] 11 mmol/L Normal 8-15 [facility] Comment on above: Order Comment: Speci men Type: BLOOD SPECIMENOrdering Facility: [facility] Address: [address] [place] [address] Performed By: #### 2 4323-8 ####[facility] LABCLIA [id number] [place] [address] AST [Catalytic activity/Vol] 12 U/L Low 14-40 [facility] Comment on above: Order Comment: Speci men Type: BLOOD SPECIMENOrdering Facility: [facility] Address: [address] [place] [address] Performed By: #### 2 4323-8 ####[facility] LABCLIA [id number] [place] [address] Bilirubin [Mass/Vol] 0.7 mg/dL Normal 0.2-1.3 [facility] Comment on above: Order Comment: Speci men Type: BLOOD SPECIMENOrdering Facility: [facility] Address: [address] [place] [address] Performed By: #### 2 4323-8 ####[facility] LABCLIA [id number] [place] [address] Calcium [Mass/Vol] 10.6 mg/dL High 8.5-10.2 [facility] Comment on above: Order Comment: Speci men Type: BLOOD SPECIMENOrdering Facility: [facility] Address: [address] [place] [address] Performed By: #### 2 4323-8 ####[facility] LABCLIA [id number] [place] [address] Chloride [Moles/Vol] 104 mmol/L Normal 98-107 [facility] Comment on above: Order Comment: Speci men Type: BLOOD SPECIMENOrdering Facility: [facility] Address: [address] [place] [address] Performed By: #### 2 4323-8 ####[facility] LABCLIA [id number] [place] [address] CO2 [Moles/Vol] 23 mmol/L Normal 22-30 [facility] Comment on above: Order Comment: Speci men Type: BLOOD SPECIMENOrdering Facility: [facility] Address: [address] [place] [address] Performed By: #### 2 4323-8 ####[facility] LABCLIA [id number] [place] [address] Creatinine [Mass/Vol] 0.80 mg/dL Normal 0.73-1.22 [facility] Comment on above: Order Comment: Speci men Type: BLOOD SPECIMENOrdering Facility: [facility] Address: [address] [place] [address] Performed By: #### 2 4323-8 ####[facility] LABCLIA [id number] [place] [address] Creatinine and Glomerular filtration rate.predicted panel (S/P/Bld) 94 mL/min/1.73m??? Normal >=60 [facility] Comment on above: Order Comment: Speci men Type: BLOOD SPECIMENOrdering Facility: [facility] Address: [address] [place] [address] Result Comment: Kathy mated Glomerular Filtration Rate [...] actual GFR. Performed By: #### 2 4323-8 ####[facility] LABCLIA [id number] [place] [address] Glucose [Mass/Vol] 201 mg/dL High 74-99 [facility] Comment on above: Order Comment: Speci men Type: BLOOD SPECIMENOrdering Facility: [facility] Address: [address] [place] [address] [place], [place] [address] Result Comment: The [place] [employer] (ADA) provides guidance for cutoff [...] Standards of Medical Care in Diabetes 2016, [place] [employer]. Diabetes Care. 2016.39(Suppl 1). Performed By: #### 2 4323-8 ####[facility] LABCLIA [id number] [place] [address] Potassium [Moles/Vol] 4.5 mmol/L Normal 3.7-5.1 [facility] Comment on above: Order Comment: Speci men Type: BLOOD SPECIMENOrdering Facility: [facility] Address: [address] [place] [address] [place], [place] [address] Performed By: #### 2 4323-8 ####[facility] LABCLIA [id number] [place] [address] Protein [Mass/Vol] 6.8 g/dL Normal 6.3-8.0 [facility] Comment on above: Order Comment: Speci men Type: BLOOD SPECIMENOrdering Facility: [facility] Address: [address] [place] [address] [place], [place] [address] Performed By: #### 2 4323-8 ####[facility] LABCLIA [id number] [place] [address] Sodium [Moles/Vol] 138 mmol/L Normal 136-144 [facility] Comment on above: Order Comment: Speci men Type: BLOOD SPECIMENOrdering Facility: [facility] Address: [address] [place] [address] [place], [place] [address] Performed By: #### 2 4323-8 ####[facility] LABCLIA [id number] [place] [id number] Urea nitrogen [Mass/Vol] 12 mg/dL Normal 9-24 [facility] Comment on above: Order Comment: Speci men Type: BLOOD SPECIMENOrdering Facility: [facility] Address: [address] [place] [address] Performed By: #### 2 4323-8 ####[facility] LABCLIA [id number] [place] [address] CBC W Auto Differential pane l (Bld)on 01-23-2024 Basophils (Bld) [#/Vol] [facility] Basophils/100 WBC (Bld) 0.4 % [facility] Differential cell count method Nom (Bld) Auto [facility] Eosinophils (Bld) [#/Vol] 0.05 10*3/uL [facility] Eosinophils/100 WBC (Bld) 1.1 % [facility] Erythrocyte distribution width (RBC) [Ratio] 15.8 % High 11.5 - 15.0 % [facility] Hematocrit (Bld) [Volume fraction] 35.1 % Low 39.0 - 51.0 % [facility] Hemoglobin (Bld) [Mass/Vol] 11.5 g/dL Low 13.0 - 17.0 g/dL [facility] Immature granulocytes (Bld) [#/Vol] [facility]F [facility] Immature granulocytes/100 WBC (Bld) 0.4 % [facility] Interpretation and review of laboratory results Abnormal [facility] Lymphocytes (Bld) [#/Vol] 1.62 10*3/uL [facility] Lymphocytes/100 WBC (Bld) 35.7 % [facility] MCH (RBC) [Entitic mass] 29.9 pg 26.0 - 34.0 pg [facility] MCHC (RBC) [Mass/Vol] 32.8 g/dL 30.5 - 36.0 g/dL [facility] MCV (RBC) [Entitic vol] 91.4 fL 80.0 - 100.0 fL [facility] Monocytes (Bld) [#/Vol] 0.59 10*3/uL [facility] Monocytes/100 WBC (Bld) 13.0 % [facility] Neutrophils (Bld) [#/Vol] 2.24 10*3/uL [facility] Neutrophils/100 WBC (Bld) 49.4 % [facility] Nucleated RBC (Bld) [#/Vol] NINF [facility] Nucleated RBC/100 WBC (Bld) [Ratio] 0.0 % /100 WBC [facility] Platelet mean volume (Bld) [Entitic vol] 9.0 fL 9.0 - 12.7 fL [facility] Platelets (Bld) [#/Vol] 277 10*3/uL [facility] RBC (Bld) [#/Vol] 3.84 10*6/uL Low 4.20 - 6.0 0 m/uL [facility] WBC (Bld) [#/Vol] 4.54 10*3/uL [facility] Basophils (Bld) [#/Vol] 10*3/uL Normal <0.11 [facility] Comment on above: Order Comment: Speci men Type: BLOOD SPECIMENOrdering Facility: [facility] Address: [address] [place] [address] Performed By: #### 5 7021-8 ####[facility] LABCLIA [id number] [place] [address] Basophils/100 WBC (Bld) 0.4 % Normal [facility] Comment on above: Order Comment: Speci men Type: BLOOD SPECIMENOrdering Facility: [facility] Address: [address] [place] [address] Performed By: #### 5 7021-8 ####[facility] LABCLIA [id number] [place] [address] Differential cell count method Nom (Bld) Auto Normal [facility] Comment on above: Order Comment: Speci men Type: BLOOD SPECIMENOrdering Facility: [facility] Address: [address] [place] [address] Performed By: #### 5 7021-8 ####[facility] LABCLIA [id number] [place] [address] Eosinophils (Bld) [#/Vol] 0.05 10*3/uL Normal <0.46 [facility] Comment on above: Order Comment: Speci men Type: BLOOD SPECIMENOrdering Facility: [facility] Address: [address] [place] [address] Performed By: #### 5 7021-8 ####[facility] LABCLIA [id number] [place] [address] Eosinophils/100 WBC (Bld) 1.1 % Normal [facility] Comment on above: Order Comment: Speci men Type: BLOOD SPECIMENOrdering Facility: [facility] Address: [address] [place] [address] Performed By: #### 5 7021-8 ####[facility] LABCLIA [id number] [place] [address] Erythrocyte distribution width (RBC) [Ratio] 15.8 % High 11.5-15.0 [facility] Comment on above: Order Comment: Speci men Type: BLOOD SPECIMENOrdering Facility: [facility] Address: [address] [place] [address] Performed By: #### 5 7021-8 ####[facility] LABCLIA [id number] [place] [address] Hematocrit (Bld) [Volume fraction] 35.1 % Low 39.0-51.0 [facility] Comment on above: Order Comment: Speci men Type: BLOOD SPECIMENOrdering Facility: [facility] Address: [address] [place] [address] Performed By: #### 5 7021-8 ####[facility] LABCLIA [id number] [place] [address] Hemoglobin (Bld) [Mass/Vol] 11.5 g/dL Low 13.0-17.0 [facility] Comment on above: Order Comment: Speci men Type: BLOOD SPECIMENOrdering Facility: [facility] Address: [address] [place] [address] Performed By: #### 5 7021-8 ####[facility] LABCLIA [id number] [place] [address] Immature granulocytes (Bld) [#/Vol] 10*3/uL Normal <0.10 [facility] Comment on above: Order Comment: Speci men Type: BLOOD SPECIMENOrdering Facility: [facility] Address: [address] [place] [address] Performed By: #### 5 7021-8 ####[facility] LABCLIA [id number] [place] [address] Immature granulocytes/100 WBC (Bld) 0.4 % Normal [facility] Comment on above: Order Comment: Speci men Type: BLOOD SPECIMENOrdering Facility: [facility] Address: [address] [place] [address] Performed By: #### 5 7021-8 ####[facility] LABCLIA [id number] [place] [address] Lymphocytes (Bld) [#/Vol] 1.62 10*3/uL Normal 1.00-4.00 [facility] Comment on above: Order Comment: Speci men Type: BLOOD SPECIMENOrdering Facility: [facility] Address: [address] [place] [address] Performed By: #### 5 7021-8 ####[facility] LABCLIA [id number] [place] [address] Lymphocytes/100 WBC (Bld) 35.7 % Normal [facility] Comment on above: Order Comment: Speci men Type: BLOOD SPECIMENOrdering Facility: [facility] Address: [address] [place] [address] Performed By: #### 5 7021-8 ####[facility] LABCLIA [id number] [place] [address] MCH (RBC) [Entitic mass] 29.9 pg Normal 26.0-34.0 [facility] Comment on above: Order Comment: Speci men Type: BLOOD SPECIMENOrdering Facility: [facility] Address: [address] [place] [address] Performed By: #### 5 7021-8 ####[facility] LABCLIA [id number] [place] [address] MCHC (RBC) [Mass/Vol] 32.8 g/dL Normal 30.5-36.0 [facility] Comment on above: Order Comment: Speci men Type: BLOOD SPECIMENOrdering Facility: [facility] Address: [address] [place] [address] Performed By: #### 5 7021-8 ####[facility] LABCLIA [id number] [place] [address] MCV (RBC) [Entitic vol] 91.4 fL Normal 80.0-100.0 [facility] Comment on above: Order Comment: Speci men Type: BLOOD SPECIMENOrdering Facility: [facility] Address: [address] [place] [address] Performed By: #### 5 7021-8 ####[facility] LABCLIA [id number] [place] [address] Monocytes (Bld) [#/Vol] 0.59 10*3/uL Normal <0.87 [facility] Comment on above: Order Comment: Speci men Type: BLOOD SPECIMENOrdering Facility: [facility] Address: [address] [place] [address] Performed By: #### 5 7021-8 ####[facility] LABCLIA [id number] [place] [address] Monocytes/100 WBC (Bld) 13.0 % Normal [facility] Comment on above: Order Comment: Speci men Type: BLOOD SPECIMENOrdering Facility: [facility] Address: [address] [place] [address] Performed By: #### 5 7021-8 ####[facility] LABCLIA [id number] [place] [address] Neutrophils (Bld) [#/Vol] 2.24 10*3/uL Normal 1.45-7.50 [facility] Comment on above: Order Comment: Speci men Type: BLOOD SPECIMENOrdering Facility: [facility] Address: [address] [place] [address] Performed By: #### 5 7021-8 ####[facility] LABCLIA [id number] [place] [address] Neutrophils/100 WBC (Bld) 49.4 % Normal [facility] Comment on above: Order Comment: Speci men Type: BLOOD SPECIMENOrdering Facility: [facility] Address: [address] [place] [address] Performed By: #### 5 7021-8 ####[facility] LABCLIA [id number] [place] [address] Nucleated RBC (Bld) [#/Vol] 10*3/uL Normal <0.01 [facility] Comment on above: Order Comment: Speci men Type: BLOOD SPECIMENOrdering Facility: [facility] Address: [address] [place] [address] Performed By: #### 5 7021-8 ####[facility] LABCLIA [id number] [place] [address] Nucleated RBC/100 WBC (Bld) [Ratio] 0.0 /100 WBC Normal [facility] Comment on above: Order Comment: Speci men Type: BLOOD SPECIMENOrdering Facility: [facility] Address: [address] [place] [address] Performed By: #### 5 7021-8 ####[facility] LABCLIA [id number] [place] [address] Platelet mean volume (Bld) [Entitic vol] 9.0 fL Normal 9.0-12.7 [facility] Comment on above: Order Comment: Speci men Type: BLOOD SPECIMENOrdering Facility: [facility] Address: [address] [place] [address] Performed By: #### 5 7021-8 ####[facility] LABIA [id number] [place] [address] Platelets (Bld) [#/Vol] 277 10*3/uL Normal 150-400 [facility] Comment on above: Order Comment: Speci men Type: BLOOD SPECIMENOrdering Facility: [facility] Address: [address] [place] [address] Performed By: #### 5 7021-8 ####[facility] LABIA [id number] [place] [address] RBC (Bld) [#/Vol] 3.84 10*6/uL Low 4.20-6.00 [facility] Comment on above: Order Comment: Speci men Type: BLOOD SPECIMENOrdering Facility: [facility] Address: [address] [place] [address] Performed By: #### 5 7021-8 ####[facility] LABIA [id number] [place] [address] WBC (Bld) [#/Vol] 4.54 10*3/uL Normal 3.70-11.00 [facility] Comment on above: Order Comment: Speci men Type: BLOOD SPECIMENOrdering Facility: [facility] Address: [address] [place] [address] Performed By: #### 5 7021-8 ####[facility] LABIA [id number] [place] [address] CNOVSPon 01-23-2024 CNOVSP Normal [facility] Cancer Ag19-9 SerPl-aCncon 0 01-23-2024 Cancer Ag 19-9 Qn 444.0 [arb'U]/mL High <36.0 C [facility] Comment on above: Order Comment: Speci men Type: BLOOD SPECIMENOrdering Facility: [facility] Address: [address] [place] [address] Result Comment: [facility] er antigen 19-9 test is used as an aid in monitoring response to treatment or recurrence in patients with established pancreatic, hepatobiliary, or gastrointestinal malignancies. Clinical correlation is required.The CA 19-9 Antigen test was performed using the [employer] DXI paramagnetic particle chemiluminescent immunoassay method. Results obtained with different assay methods or kits cannot be used interchangeably. Performed By: #### 2 4108-3 ####[facility] LABIA [id number] [place] [address] [place] Comprehensive metabolic 2000 panelon 01-23-2024 Albumin [Mass/Vol] 4.0 g/dL Normal 3.9-4.9 [facility] Comment on above: Order Comment: Speci men Type: BLOOD SPECIMENOrdering Facility: [facility] Address: [address] [place] [address] Result Comment: Josh ected result: Previously reported as 4.1 g/dL on 01/23/2024 at 10:24 AM EDT. Performed By: #### 2 4323-8 ####[facility] LABIA [id number] [place] [address] [place] ALP [Catalytic activity/Vol] 185 U/L High 38-113 [facility] Comment on above: Order Comment: Noemí [facility] Type: BLOOD SPECIMENOrdering Facility: [facility] Address: [address] [place] [address] Result Comment: Josh ected result: Previously reported as 190 U/L on 01/23/2024 at 10:24 AM EDT. Performed By: #### 2 4323-8 ####[facility] LABCLIA [id number] [place] [address] [place] ALT [Catalytic activity/Vol] 30 U/L Normal 10-54 [facility] Comment on above: Order Comment: Speci men Type: BLOOD SPECIMENOrdering Facility: [facility] Address: [address] [place] [address] Result Comment: Josh ected result: Previously reported as 22 U/L on 01/23/2024 at 10:24 AM EDT. Performed By: #### 2 4323-8 ####[facility] LABCLIA [id number] [place] [address] [place] Anion gap [Moles/Vol] 15 mmol/L Normal 8-15 [facility] Comment on above: Order Comment: Speci men Type: BLOOD SPECIMENOrdering Facility: [facility] Address: [address] [place] [address] Performed By: #### 2 4323-8 ####[facility] LABCLIA [id number] [place] [address] [place] AST [Catalytic activity/Vol] 27 U/L Normal 14-40 [facility] Comment on above: Order Comment: Speci men Type: BLOOD SPECIMENOrdering Facility: [facility] Address: [address] [place] [address] Result Comment: Josh ected result: Previously reported as 16 U/L on 01/23/2024 at 10:24 AM EDT. Performed By: #### 2 4323-8 ####[facility] LABCLIA [id number] [place] [address] [place] Bilirubin [Mass/Vol] 0.7 mg/dL Normal 0.2-1.3 [facility] Comment on above: Order Comment: Speci men Type: BLOOD SPECIMENOrdering Facility: [facility] Address: [address] [place] [address] Performed By: #### 2 4323-8 ####[facility] LABCLIA [id number] [place] [address] [place] Calcium [Mass/Vol] 10.4 mg/dL High 8.5-10.2 [facility] Comment on above: Order Comment: Speci men Type: BLOOD SPECIMENOrdering Facility: [facility] Address: [address] [place] [address] Result Comment: Josh ected result: Previously reported as 10.5 mg/dL on 01/23/2024 at 10:24 AM EDT. Performed By: #### 2 4323-8 ####[facility] LABIA [id number] [place] [address] [place] Chloride [Moles/Vol] 102 mmol/L Normal 98-107 [facility] Comment on above: Order Comment: Speci men Type: BLOOD SPECIMENOrdering Facility: [facility] Address: [address] [place] [address] Result Comment: Resu lt rechecked. Performed By: #### 2 4323-8 ####[facility] LABIA [id number] [place] [address] [place] CO2 [Moles/Vol] 21 mmol/L Low 22-30 [facility] Comment on above: Order Comment: Speci men Type: BLOOD SPECIMENOrdering Facility: [facility] Address: [address] [place] [address] Result Comment: Josh ected result: Previously reported as 24 mmol/L on 01/23/2024 at 10:24 AM EDT. Performed By: #### 2 4323-8 ####[facility] LABIA [id number] [place] [address] [place] Creatinine [Mass/Vol] 0.84 mg/dL Normal 0.73-1.22 [facility] Comment on above: Order Comment: Speci men Type: BLOOD SPECIMENOrdering Facility: [facility] Address: [address] [place] [address] Result Comment: Josh ected result: Previously reported as 0.83 mg/dL on 01/23/2024 at 10:24 AM EDT. Performed By: #### 2 4323-8 ####[facility] LABCLIA [id number] [place] [address] [place] Creatinine and Glomerular filtration rate.predicted panel (S/P/Bld) 93 mL/min/1.73m??? Normal >=60 [facility] Comment on above: Order Comment: Speci luis eduardo Type: BLOOD SPECIMENOrdering Facility: [facility] Address: [address] [place] [address] Result Comment: Kathy mated Glomerular Filtration Rate [...] actual GFR. Performed By: #### 2 4323-8 ####[facility] LABIA [id number] [place] [address] [place] Glucose [Mass/Vol] 144 mg/dL High 74-99 [facility] Comment on above: Order Comment: Noemí hoff Type: BLOOD SPECIMENOrdering Facility: [facility] Address: [address] [place] [address] Result Comment: The [place] [employer] (ADA) provides guidance for cutoff [...] Standards of Medical Care in Diabetes 2016, [place] [employer]. Diabetes Care. 2016.39(Suppl 1).Corrected result: Previously reported as 163 mg/dL on 01/23/2024 at 10:24 AM EDT. Performed By: #### 2 4323-8 ####[facility] LABCLIA [id number] [address] [address] [place] Potassium [Moles/Vol] 4.8 mmol/L Normal 3.7-5.1 [facility] Comment on above: Order Comment: Speci men Type: BLOOD SPECIMENOrdering Facility: [facility] Address: [address] [place] [address] Performed By: #### 2 4323-8 ####[facility] LABCLIA [id number] [place] [address] [place] Protein [Mass/Vol] 7.1 g/dL Normal 6.3-8.0 [facility] Comment on above: Order Comment: Speci men Type: BLOOD SPECIMENOrdering Facility: [facility] Address: [address] [place] [address] Result Comment: Josh ected result: Previously reported as 6.7 g/dL on 01/23/2024 at 10:24 AM EDT. Performed By: #### 2 4323-8 ####[facility] LABCLIA [id number] [place] [address] [place] Sodium [Moles/Vol] 138 mmol/L Normal 136-144 [facility] Comment on above: Order Comment: Speci men Type: BLOOD SPECIMENOrdering Facility: [facility] Address: [address] [place] [address] Result Comment: Resu lt rechecked. Performed By: #### 2 4323-8 ####[facility] LABCLIA [id number] [place] [address] [place] Urea nitrogen [Mass/Vol] 12 mg/dL Normal 9-24 [facility] Comment on above: Order Comment: Speci men Type: BLOOD SPECIMENOrdering Facility: [facility] Address: [address] [place] [address] Performed By: #### 2 4323-8 ####[facility] LABCLIA [id number] [address] [address] [place] CA 19-9on 01-04-2024 Cancer Ag 19-9 Qn 290.0 [arb'U]/mL High NINF - 36.0 U/mL [facility] Comment on above: Cancer antigen 19-9 test is used as an aid in monitoring response to treatment or recurrence in patients with established pancreatic, hepatobiliary, or gastrointestinal malignancies. Clinical correlation is required. The CA 19-9 Antigen test was performed using the [employer] DXI paramagnetic particle chemiluminescent immunoassay method. Results obtained with different assay methods or kits cannot be used interchangeably. CNPNon 01-04-2024 CNPN Normal [facility] Cancer Ag 19-9 Qnon 01-04-20 24 Interpretation and review of laboratory results Abnormal [facility] CBC W Auto Differential pane l (Bld)on 01-03-2024 Basophils (Bld) [#/Vol] [facility] Basophils/100 WBC (Bld) 0.4 % [facility] Differential cell count method Nom (Bld) Auto [facility] Eosinophils (Bld) [#/Vol] 0.05 10*3/uL [facility] Eosinophils/100 WBC (Bld) 1.0 % [facility] Erythrocyte distribution width (RBC) [Ratio] 15.8 % High 11.5 - 15.0 % [facility] Hematocrit (Bld) [Volume fraction] 33.7 % Low 39.0 - 51.0 % [facility] Hemoglobin (Bld) [Mass/Vol] 11.1 g/dL Low 13.0 - 17.0 g/dL [facility] Immature granulocytes (Bld) [#/Vol] 0.03 10*3/uL [facility] Immature granulocytes/100 WBC (Bld) 0.6 % [facility] Interpretation and review of laboratory results Abnormal [facility] Lymphocytes (Bld) [#/Vol] 1.69 10*3/uL [facility] Lymphocytes/100 WBC (Bld) 32.4 % [facility] MCH (RBC) [Entitic mass] 30.3 pg 26.0 - 34.0 pg [facility] MCHC (RBC) [Mass/Vol] 32.9 g/dL 30.5 - 36.0 g/dL [facility] MCV (RBC) [Entitic vol] 92.1 fL 80.0 - 100.0 fL [facility] Monocytes (Bld) [#/Vol] 0.79 10*3/uL [facility] Monocytes/100 WBC (Bld) 15.1 % [facility] Neutrophils (Bld) [#/Vol] 2.64 10*3/uL [facility] Neutrophils/100 WBC (Bld) 50.5 % [facility] Nucleated RBC (Bld) [#/Vol] NINF [facility] Nucleated RBC/100 WBC (Bld) [Ratio] 0.0 % /100 WBC [facility] Platelet mean volume (Bld) [Entitic vol] 9.4 fL 9.0 - 12.7 fL [facility] Platelets (Bld) [#/Vol] 288 10*3/uL [facility] RBC (Bld) [#/Vol] 3.66 10*6/uL Low 4.20 - 6.0 0 m/uL [facility] WBC (Bld) [#/Vol] 5.22 10*3/uL [facility] Basophils (Bld) [#/Vol] 10*3/uL Normal <0.11 [facility] Comment on above: Order Comment: Speci men Type: BLOOD SPECIMENOrdering Facility: [facility] Address: [address] [place] [address] Performed By: #### 5 7021-8 ####[facility] LABCLIA [id number] [place] [address] Basophils/100 WBC (Bld) 0.4 % Normal [facility] Comment on above: Order Comment: Speci men Type: BLOOD SPECIMENOrdering Facility: [facility] Address: [address] [place] [address] Performed By: #### 5 7021-8 ####[facility] LABCLIA [id number] [place] [address] Differential cell count method Nom (Bld) Auto Normal [facility] Comment on above: Order Comment: Speci men Type: BLOOD SPECIMENOrdering Facility: [facility] Address: [address] [place] [address] Performed By: #### 5 7021-8 ####[facility] LABCLIA [id number] [place] [address] Eosinophils (Bld) [#/Vol] 0.05 10*3/uL Normal <0.46 [facility] Comment on above: Order Comment: Speci men Type: BLOOD SPECIMENOrdering Facility: [facility] Address: [address] [place] [address] Performed By: #### 5 7021-8 ####[facility] LABCLIA [id number] [place] [address] Eosinophils/100 WBC (Bld) 1.0 % Normal [facility] Comment on above: Order Comment: Speci men Type: BLOOD SPECIMENOrdering Facility: [facility] Address: [address] [place] [address] Performed By: #### 5 7021-8 ####[facility] LABCLIA [id number] [place] [address] Erythrocyte distribution width (RBC) [Ratio] 15.8 % High 11.5-15.0 [facility] Comment on above: Order Comment: Speci men Type: BLOOD SPECIMENOrdering Facility: [facility] Address: [address] [place] [address] Performed By: #### 5 7021-8 ####[facility] LABCLIA [id number] [place] [address] Hematocrit (Bld) [Volume fraction] 33.7 % Low 39.0-51.0 [facility] Comment on above: Order Comment: Speci men Type: BLOOD SPECIMENOrdering Facility: [facility] Address: [address] [place] [address] Performed By: #### 5 7021-8 ####[facility] LABCLIA [id number] [place] [address] Hemoglobin (Bld) [Mass/Vol] 11.1 g/dL Low 13.0-17.0 [facility] Comment on above: Order Comment: Speci men Type: BLOOD SPECIMENOrdering Facility: [facility] Address: [address] [place] [address] Performed By: #### 5 7021-8 ####[facility] LABCLIA [id number] [place] [address] Immature granulocytes (Bld) [#/Vol] 0.03 10*3/uL Normal <0.10 [facility] Comment on above: Order Comment: Speci men Type: BLOOD SPECIMENOrdering Facility: [facility] Address: [address] [place] [address] Performed By: #### 5 7021-8 ####[facility] LABCLIA [id number] [place] [address] Immature granulocytes/100 WBC (Bld) 0.6 % Normal [facility] Comment on above: Order Comment: Speci men Type: BLOOD SPECIMENOrdering Facility: [facility] Address: [address] [place] [address] Performed By: #### 5 7021-8 ####[facility] LABCLIA [id number] [place] [address] Lymphocytes (Bld) [#/Vol] 1.69 10*3/uL Normal 1.00-4.00 [facility] Comment on above: Order Comment: Speci men Type: BLOOD SPECIMENOrdering Facility: [facility] Address: [address] [place] [address] Performed By: #### 5 7021-8 ####[facility] LABCLIA [id number] [place] [address] Lymphocytes/100 WBC (Bld) 32.4 % Normal [facility] Comment on above: Order Comment: Speci men Type: BLOOD SPECIMENOrdering Facility: [facility] Address: [address] [place] [address] Performed By: #### 5 7021-8 ####[facility] LABCLIA [id number] [place] [address] MCH (RBC) [Entitic mass] 30.3 pg Normal 26.0-34.0 [facility] Comment on above: Order Comment: Speci men Type: BLOOD SPECIMENOrdering Facility: [facility] Address: [address] [place] [address] Performed By: #### 5 7021-8 ####[facility] LABCLIA [id number] [place] [address] MCHC (RBC) [Mass/Vol] 32.9 g/dL Normal 30.5-36.0 [facility] Comment on above: Order Comment: Speci men Type: BLOOD SPECIMENOrdering Facility: [facility] Address: [address] [place] [address] Performed By: #### 5 7021-8 ####[facility] LABIA [id number] [place] [address] MCV (RBC) [Entitic vol] 92.1 fL Normal 80.0-100.0 [facility] Comment on above: Order Comment: Speci men Type: BLOOD SPECIMENOrdering Facility: [facility] Address: [address] [place] [address] Performed By: #### 5 7021-8 ####[facility] LABIA [id number] [place] [address] Monocytes (Bld) [#/Vol] 0.79 10*3/uL Normal <0.87 [facility] Comment on above: Order Comment: Speci men Type: BLOOD SPECIMENOrdering Facility: [facility] Address: [address] [place] [address] Performed By: #### 5 7021-8 ####[facility] LABIA [id number] [place] [address] Monocytes/100 WBC (Bld) 15.1 % Normal [facility] Comment on above: Order Comment: Speci men Type: BLOOD SPECIMENOrdering Facility: [facility] Address: [address] [place] [address] Performed By: #### 5 7021-8 ####[facility] LABCLIA [id number] [place] [address] Neutrophils (Bld) [#/Vol] 2.64 10*3/uL Normal 1.45-7.50 [facility] Comment on above: Order Comment: Speci men Type: BLOOD SPECIMENOrdering Facility: [facility] Address: [address] [place] [address] Performed By: #### 5 7021-8 ####[facility] LABCLIA [id number] [place] [address] Neutrophils/100 WBC (Bld) 50.5 % Normal [facility] Comment on above: Order Comment: Speci men Type: BLOOD SPECIMENOrdering Facility: [facility] Address: [address] [place] [address] Performed By: #### 5 7021-8 ####[facility] LABCLIA [id number] [place] [address] Nucleated RBC (Bld) [#/Vol] 10*3/uL Normal <0.01 [facility] Comment on above: Order Comment: Speci men Type: BLOOD SPECIMENOrdering Facility: [facility] Address: [address] [place] [address] Performed By: #### 5 7021-8 ####[facility] LABCLIA [id number] [place] [address] Nucleated RBC/100 WBC (Bld) [Ratio] 0.0 /100 WBC Normal [facility] Comment on above: Order Comment: Speci men Type: BLOOD SPECIMENOrdering Facility: [facility] Address: [address] [place] [address] Performed By: #### 5 7021-8 ####[facility] LABCLIA [id number] [place] [address] Platelet mean volume (Bld) [Entitic vol] 9.4 fL Normal 9.0-12.7 [facility] Comment on above: Order Comment: Speci men Type: BLOOD SPECIMENOrdering Facility: [facility] Address: [address] [place] [address] Performed By: #### 5 7021-8 ####[facility] LABCLIA [id number] [place] [address] Platelets (Bld) [#/Vol] 288 10*3/uL Normal 150-400 [facility] Comment on above: Order Comment: Speci men Type: BLOOD SPECIMENOrdering Facility: [facility] Address: [address] [place] [address] Performed By: #### 5 7021-8 ####[facility] [facility] [id number] [place] [address] RBC (Bld) [#/Vol] 3.66 10*6/uL Low 4.20-6.00 [facility] Comment on above: Order Comment: Speci men Type: BLOOD SPECIMENOrdering Facility: [facility] Address: [address] [place] [address] Performed By: #### 5 7021-8 ####[facility] [id number] [place] [address] WBC (Bld) [#/Vol] 5.22 10*3/uL Normal 3.70-11.00 [facility] Comment on above: Order Comment: Speci men Type: BLOOD SPECIMENOrdering Facility: [facility] Address: [address] [place] [address] Performed By: #### 5 7021-8 ####[facility] [id number] [place] [address] CNOVSPon 01-03-2024 CNOVSP Normal [facility] Cancer Ag19-9 SerPl-aCncon 0 01-03-2024 Cancer Ag 19-9 Qn 290.0 [arb'U]/mL High <36.0 C [facility] Comment on above: Order Comment: Speci luis eduardo Type: BLOOD SPECIMENOrdering Facility: [facility] Address: [address] [place] [address] Result Comment: [facility] er antigen 19-9 test is used as an aid in monitoring response to treatment or recurrence in patients with established pancreatic, hepatobiliary, or gastrointestinal malignancies. Clinical correlation is required.The CA 19-9 Antigen test was performed using the Elle [employer] Unicel DXI paramagnetic particle chemiluminescent immunoassay method. Results obtained with different assay methods or kits cannot be used interchangeably. Performed By: #### 2 4108-3 ####[facility] LABCLIA [id number] [facility] [id number] [place] [address] [place] Comprehensive metabolic 2000 panelOrdered By: Elizabeth Yu on 01-03-2024 Albumin [Mass/Vol] 3.9 g/dL 3.9 - 4.9 g/dL [facility] ALP [Catalytic activity/Vol] 175 U/L High 38 - 113 U/L [facility] ALT [Catalytic activity/Vol] 14 U/L 10 - 54 U/L [facility] Anion gap [Moles/Vol] 6 mmol/L Low 8 - 15 mmol/L [facility] AST [Catalytic activity/Vol] 13 U/L Low 14 - 40 U/L [facility] Bilirubin [Mass/Vol] 0.5 mg/dL 0.2 - 1 .3 mg/dL [facility] Calcium [Mass/Vol] 10.3 mg/dL High 8.5 - 10. 2 mg/dL [facility] Chloride [Moles/Vol] 103 mmol/L 98 - 10 7 mmol/L [facility] CO2 [Moles/Vol] 26 mmol/L 22 - 30 mmol/L [facility] Creatinine [Mass/Vol] 0.85 mg/dL 0.73 - 1.22 mg/dL [facility] GFR/1.73 sq M.predicted among non-blacks MDRD (S/P/Bld) [Vol rate/Area] 92 mL/min/{1.73_m2} - PINF [facility] Comment on above: Estimated Glomerular Filtration [...] not accurately reflect actual GFR. Glucose [Mass/Vol] 169 mg/dL High 74 - 99 mg/dL [facility] Comment on above: The [place] [employer] Association (ADA) provides guidance for [...] Standards of Medical Care in Diabetes 2016, [place] [employer]. Diabetes Care. 2016.39(Suppl 1). Interpretation and review of laboratory results Abnormal [facility] Potassium [Moles/Vol] 4.4 mmol/L 3.7 - 5.1 mmol/L [facility] Protein [Mass/Vol] 6.8 g/dL 6.3 - 8.0 g/dL [facility] Sodium [Moles/Vol] 135 mmol/L Low 136 - 144 mmol/L [facility] Urea nitrogen [Mass/Vol] 16 mg/dL 9 - 24 mg/dL [facility] Comprehensive metabolic 2000 panelon 01-03-2024 Albumin [Mass/Vol] 3.9 g/dL Normal 3.9-4.9 [facility] Comment on above: Order Comment: Noemí hoff Type: BLOOD SPECIMENOrdering Facility: [facility] Address: [address] [place] [address] Performed By: #### 2 4323-8 ####[facility] LABCL[facility] [id number] [place] [address] ALP [Catalytic activity/Vol] 175 U/L High 38-113 [facility] Comment on above: Order Comment: Noemí hoff Type: BLOOD SPECIMENOrdering Facility: [facility] Address: [address] [place] [address] Performed By: #### 2 4323-8 ####[facility]CL[facility] [id number] [place] [address] ALT [Catalytic activity/Vol] 14 U/L Normal 10-54 [facility] Comment on above: Order Comment: Speci men Type: BLOOD SPECIMENOrdering Facility: [facility] Address: [address] [place] [address] Performed By: #### 2 4323-8 ####[facility]CLIA [id number] [place] [address] Anion gap [Moles/Vol] 6 mmol/L Low 8-15 [facility] Comment on above: Order Comment: Speci men Type: BLOOD SPECIMENOrdering Facility: [facility] Address: [address] [place] [address] Performed By: #### 2 4323-8 ####[facility]CL[facility] [id number] [place] [address] AST [Catalytic activity/Vol] 13 U/L Low 14-40 [facility] Comment on above: Order Comment: Speci men Type: BLOOD SPECIMENOrdering Facility: [facility] Address: [address] [place] [address] Performed By: #### 2 4323-8 ####[facility]CL[facility] [id number] [place] [address] Bilirubin [Mass/Vol] 0.5 mg/dL Normal 0.2-1.3 [facility] Comment on above: Order Comment: Speci men Type: BLOOD SPECIMENOrdering Facility: [facility] Address: [address] [place] [address] Performed By: #### 2 4323-8 ####[facility]CL[facility] [id number] [place] [address] Calcium [Mass/Vol] 10.3 mg/dL High 8.5-10.2 [facility] Comment on above: Order Comment: Speci men Type: BLOOD SPECIMENOrdering Facility: [facility] Address: [address] [place] [address] Performed By: #### 2 4323-8 ####[facility]CL[facility] [id number] [place] [address] Chloride [Moles/Vol] 103 mmol/L Normal 98-107 [facility] Comment on above: Order Comment: Speci men Type: BLOOD SPECIMENOrdering Facility: [facility] Address: [address] [place] [address] Performed By: #### 2 4323-8 ####[facility]CL[facility] [id number] [place] [address] CO2 [Moles/Vol] 26 mmol/L Normal 22-30 [facility] Comment on above: Order Comment: Speci men Type: BLOOD SPECIMENOrdering Facility: [facility] Address: [address] [place] [address] Performed By: #### 2 4323-8 ####[facility]CL[facility] [id number] [place] [address] Creatinine [Mass/Vol] 0.85 mg/dL Normal 0.73-1.22 [facility] Comment on above: Order Comment: Speci men Type: BLOOD SPECIMENOrdering Facility: [facility] Address: [address] [place] [address] Performed By: #### 2 4323-8 ####[facility]CL[facility] [id number] [place] [address] Creatinine and Glomerular filtration rate.predicted panel (S/P/Bld) 92 mL/min/1.73m??? Normal >=60 [facility] Comment on above: Order Comment: Speci men Type: BLOOD SPECIMENOrdering Facility: [facility] Address: [address] [place] [address] Result Comment: Kathy mated Glomerular Filtration Rate [...] actual GFR. Performed By: #### 2 4323-8 ####[facility]CL[facility] [id number] [place] [address] Glucose [Mass/Vol] 169 mg/dL High 74-99 [facility] Comment on above: Order Comment: Speci men Type: BLOOD SPECIMENOrdering Facility: [facility] Address: [address] [place] [address] Result Comment: The [place] Diabetes Association (ADA) provides guidance for cutoff [...] Standards of Medical Care in Diabetes 2016, [place] [employer]. Diabetes Care. 2016.39(Suppl 1). Performed By: #### 2 4323-8 ####[facility]CL[facility] [id number] [place] [address] Potassium [Moles/Vol] 4.4 mmol/L Normal 3.7-5.1 [facility] Comment on above: Order Comment: Noemí hoff Type: BLOOD SPECIMENOrdering Facility: [facility] Address: [address] [place] [address] Performed By: #### 2 4323-8 ####[facility]CL[facility] [id number] [place] [address] Protein [Mass/Vol] 6.8 g/dL Normal 6.3-8.0 [facility] Comment on above: Order Comment: Speci men Type: BLOOD SPECIMENOrdering Facility: [facility] Address: [address] [place] [address] Performed By: #### 2 4323-8 ####[facility]CLIA [id number] [place] [address] Sodium [Moles/Vol] 135 mmol/L Low 136-144 [facility] Comment on above: Order Comment: Speci men Type: BLOOD SPECIMENOrdering Facility: [facility] Address: [address] [place] [address] [place], [place] [address] Performed By: #### 2 4323-8 ####[facility]CL[facility] [id number] [place] [address] Urea nitrogen [Mass/Vol] 16 mg/dL Normal 9-24 [facility] Comment on above: Order Comment: Speci men Type: BLOOD SPECIMENOrdering Facility: [facility] Address: [address] [place] [address] Performed By: #### 2 4323-8 ####[facility]CL[facility] [id number] [place] [address] CNPNon 01-02-2024 CNPN Normal [facility] [id number] 12-29-2023 [id number] HNO ID: [id number] Author: AYAH HOWE RN Service: ? Author Type: Registered Nurse Type: [id number] Filed: 12/29/2023 12:32 Note Text: After Placement of a Port What is a port? A port is a device that is placed underneath the skin, usually in the upper part of the right or left chest. The port is a reservoir that is connected to a slender, hollow, flexible tube called the central venous catheter. The catheter is positioned inside a large vein near the heart. A port is also known as a portacath or mediport. It is used to deliver fluids, nutrition, antibiotics, chemotherapy, and/or blood products into your bloodstream. A port may be used to take blood samples. It is only to be used by qualified health care personnel. Driving ? It is unsafe for you to drive after the procedure. ? A responsible adult must drive you home when you are discharged. ? You may drive the day after your procedure, unless instructed otherwise. Diet ? You may resume your normal diet after the procedure. Activity ? Rest when you get home after the procedure. ? We recommend a responsible adult stay with you overnight after your procedure. ? Avoid strenuous activity and exercise, such as jogging, golfing, or playing tennis. ? Do not lift anything heavier than 10 pounds for 24 hours after the procedure. ? You may resume your normal activities 24 hours after your procedure. ? Avoid activities that put direct pressure on or next to the implant site. Medications ? Continue taking all of your prescribed medicines after the procedure unless instructed otherwise by your doctor. ? You may take acetaminophen (TylenolA?) as needed to relieve discomfort unless allergic or told not to take Tylenol. Follow the directions on the package labeling and never exceed the recommended dose. Bathing and showering guidelines ? Do not shower for 3 days after your procedure. You may bathe but avoid getting the port site wet. ? Do not swim or soak in water until the site heals. Check with your physician or treatment nurse if you have questions about bathing, swimming, or soaking. Site care ? Keep the bandage that is over the incision site clean and dry. ? If the bandage becomes wet or soiled, replace it with a sterile gauze bandage. ? You may remove the bandage after 3 days. ? Small strips of tape may be covering the site. Do not try to remove them. They will fall off on their own. ? You may notice a thin coating over the site. This is a sealant that is used to protect the site from infection and to promote healing. Do not try to remove. This will wear off in time. ? The stitches do not need to be removed. They will dissolve on their own. What to expect ? The site may be black and blue. ? It is normal to be sore for a few days. ? You may feel or see a small ?bump? under your skin where the port was placed. ? Your healthcare professional will use a special needle called a pratt needle that prevents damage to your port. This is the only type of needle that should be used for your port. Call your doctor if you: ? See signs of infection, such as redness, drainage, foul odor, or swelling. ? See the incision site open up. ? Have a temperature higher than 100.4? F or 38? C. ? Develop shaking chills. ? Have pain that is not relieved by your usual pain medications. ? Experience shortness of breath. If the site is bleeding, remain sitting up (unless you feel faint) and apply pressure to the area. If bleeding continues for longer than 10 minutes, continue to apply pressure and have someone drive you to the Emergency Department or call 911. It is important to follow up with your ordering physician for long lines operator, regular maintenance of your port. [facility] Imaging and Radiology Service [facility] 7:30 AM to 4:30 PM [phone] After hours/weekends: call your primary care physician or go to the ED [facility] Mon-Mon 7:30 AM to 4:00 PM [phone]: or ext [phone] After hours/weekends: For interventional radiology: call the interventional radiologist credit administration officer , ask for pager [phone] For all other radiology calls: call the radiologist credit administration officer , ask for pager [phone] [facility] Mon-Mon 8:00 AM to 5:00 PM [phone] After hours/weekends: call your primary care physician or go to the ED [facility] 9:00 AM to 5:00 PM [phone] After hours/weekends: call your primary care physician or go to the ED [facility] 8:00 AM to 5:00 PM [phone] After hours/weekends: call your primary care physician or go to the ED [facility] Mon-Mon 7:00 AM to 4:30 PM [phone] After hours/weekends: call your primary care physician or go to the ED [facility] 7:00 AM to 3:30 PM [phone] After hours/weekends: call your prim (more content not included)... Normal [facility] BRIEF OP NOTon 12-29-2023 BRIEF OP NOT HNO ID: [id number] Author: JHONNY MORGAN MD Service: Radiology Author Type: Physician Type: Brief Op Note Filed: 12/29/2023 12:08 Note Text: OPERATIVE/PROCEDURE REPORT LOG ID: [id number] SURGERY/PROCEDURE DATE: 12/29/2023 INCISION/PROCEDURE START TIME: 10:59 AM INCISION CLOSE/PROCEDURE END TIME: 11:48 AM SURGEON(S)/PROCEDURALIST( S) AND UKE DRIVER(S): Surgeon(s) and Role: * Jhonny Morgan MD - Primary No Additional Staff SURGERY/PROCEDURE(S): Left chest venous ported catheter placed via left IJV and is ready for use Right chest malfunctioning venous ported catheter was removed and sent to surgical pathology - on examination, a small tear was noted in the catheter at/near the excepted IJV entry ANESTHESIA: Procedural Sedation SURGERY/PROCEDURE DETAILS: see above PRE-OP/PRE-PROCEDURE DIAGNOSIS: malfunctioning ported catheter POST-OP/POST-PROCEDURE DIAGNOSIS: Same as Preop ESTIMATED BLOOD LOSS: 5 mls SPECIMENS: Right chest ported catheter IMPLANTABLE DEVICES: Implant Name Type Inv. Item Serial No. Steward/Steward[employer] D[employer] Room Lot No. LRB No. Used Action POWER PORT 8F SINGLE LUMEN VENOUS Port [employer] [id number] Left 1 Implanted DRAINS: None COMPLICATIONS: None CLOSURE TECHNIQUE: Primary PARTICIPATION IN SURGERY/PROCEDURE: I/primary surgeon/proceduralist performed the procedure with assistance. SIGNATURE: Jhonny Morgan MD PATIENT NAME: Trinity Perry DATE: December 29, 2023 TIME: 12:06 PM [facility] HISTORY PHYSICALon HISTORY PHYSICAL HNO ID: [id number] Author: JHONNY MORGAN MD Service: Radiology Author Type: Physician Type: H&P Filed: 12/29/2023 10:14 Note Text: UPDATED PROCEDURAL SEDATION HISTORY AND PHYSICAL EXAMINATION SERVICE DATE: 12/29/2023 SERVICE TIME: 10:14 AM PHYSICAL EXAM MUST BE COMPLETED ON ADMISSION PROCEDURE: New Port-a-cath placement and removal of indwelling port-a-cath Procedure Indications: Access for chemotherapy and removal of malfunctioning port-a-cath The History and Physical (completed in the past 30 days) has been reviewed and the patient has been examined. The contents accurately reflect the patient's condition with the following additions or revisions since the HANDP was completed. ASA Class: ASA Class: Patient with mild systemic disease Examination indicates no changes. AIRWAY: Airway Visualization of Uvula: Yes Mouth opening greater than 2 fingerbreadths: Yes Neck Full Range of Motion: Yes LUNGS: Lungs clear to auscultation CARDIAC: Regular rhythm,Regular rate Provisional Diagnosis/Treatment Plan: New Port-a-cath placement and removal of indwelling port-a-cath Sedation Goal: Moderate This HANDP can be found in the Electronic Medical Record dated 12/11/23. SIGNATURE: Jhonny Morgan MD PATIENT NAME: Trinity Perry DATE: December 29, 2023 TIME: 10:14 AM [facility] IR CVC TUNNELED W/PORT REMOV [facility] 12-29-2023 IR CVC TUNNELED W/PORT REMOVAL * * *Final Report* * * DATE OF EXAM: Dec 29 2023 12:03PM [facility] 7473 - IR CVC TUNNELED W/PORT REMOVAL / PROCEDURE REASON: Central line complication, initial encounter [T82.9XXA] * * * * Physician Interpretation * * * * PROCEDURE: VENOUS PORT PLACEMENT (VIA LEFT IJV) AND VENOUS PORT REMOVAL (RIGHT CHEST WALL) HISTORY: Patient has a right chest wall port-a-cath, placed Feb 2022, has been working well for more than a year. Recently, has been experiencing redness along the catheter in the subcutaneous tunnel, starts during administration of chemotherapy and slowly resolves before the next chemotherapy sessions. Has been taking antibiotics with no significant relief. No clinical concern for infection/bacteremia; no significant pain and no break in skin/discharge over the port-a-cath. Concern is for catheter breakage. Hence, exchange was requested. CONSENT: Risks, benefits, treatment options, potential complications and personnel to be involved were discussed (including the risks of radiation exposure, contrast and anesthesia administration, and any equipment needed for the procedure to ensure best possible outcome) with the patient and all questions were answered and consent was obtained prior to procedure. MEDICATION RECONCILIATION: The patient's medications and allergies were reviewed in the electronic medical record and reconciled to the proposed procedure/treatment. ELVIA-PROCEDURE DISCUSSION: The appropriate elements of the pre-procedure discussion, safety check list and sign-out were performed. TIME OUT: A time out was performed immediately prior to procedure start with the nursing, and interventional team, correctly identifying the name, date of , procedure, anatomy (including marking of site and side if applicable), patient position, procedure consent form, relevant diagnostic and radiology test results, antibiotic administration if applicable, safety precautions, and procedure-specific equipment needs. Start of procedure (Time out): 1059 End of procedure (Sign out): 1148 Patient position: Supine Anesthesia: After establishing pulse oximetry, BP and EKG monitoring by the Radiology nurse, moderate sedation with Versed and Fentanyl was administered. Intra-service time (monitoring for moderate sedation): 58 minutes Patient monitoring: I personally supervised and directed an independent trained observer who assisted in monitoring the patient?s level of consciousness and physiological status throughout the procedure. Local anesthesia: 2 % lidocaine ANTIBIOTICS: Ancef Antibiotic infusion start time: 1017 CONTRAST DOSE: None IMAGE GUIDANCE: Fluoroscopic and sonographic guidance was used. Ultrasound demonstrated patency of the target vein without filling defects. Access was obtained under direct sonographic visualization. A sonographic image of the vessel was obtained and placed into the permanent archive for documentation. FLUOROSCOPIC RADIATION SUMMARY: Plane A, Air Kerma: 1.0 mGy Dose Area Product (DAP): Fluoro Time: 3:42 min:sec Radiation dose exceed 5 Gy: No If radiation dose exceeded 5 Gy, was counseling and instructional brochure provided:N/A TECHNIQUE: The patient was prepped and draped using all elements of maximal sterile barrier technique (cap, mask, sterile gown, sterile gloves, a large sterile sheet, hand hygiene and cutaneous antisepsis), sterile ultrasound gel and sterile ultrasound probe covers. VENOUS PORT PLACEMENT (VIA LEFT IJV): Access Local anesthesia was administered. The vessel was sonographically evaluated and determined to be patent. Real time ultrasound was used to visualize needle entry into the vessel and a permanent image was stored. Vein accessed: Internal jugular vein - left Access technique: Micropuncture set with 21 gauge needle Port placement An incision was made at the upper chest along the prior scar, a pocket was created, and the catheter was tunneled subcutaneously to the venous access site and trimmed to appropriate length. The port was inserted into the pocket and the catheter was advanced via a peel-away sheath into the vein under fluoroscopic guidance. The port was sutured into the pocket using absorbable suture. Catheter tip location was fluoroscopically verified and a permanent image was stored. Port placed: 8 F BARD PowerPort by - Groshong (distal valved) silicone catheter with pressure injectable port. Catheter tip position: Right upper atrium Unique Device Identifier: Not available Catheter flush: Normal saline Closure The access site and incision were closed and sterile dressing(s) were applied. Access site closure technique: Tissue adhesive Incision closure technique: Absorbable suture and tissue adhesive Patient discharged from procedure suite with device accessed: No VENOUS PORT REMOVAL (RIGHT CHEST WALL): Local anesthesia was administered. An incision was made at (more content not included)... [facility] IR FLU GD [place] CVA PLACEon IR FLU GD [place] CVA PL[facility] * * *Final Report* * * DATE OF EXAM: Dec 29 2023 12:03PM [facility] 7444 - IR FLU GD [place] CVA PL[facility] / PROCEDURE REASON: Central line complication, initial encounter [T82.9XXA] * * * * Physician Interpretation * * * * PROCEDURE: VENOUS PORT PLACEMENT (VIA LEFT IJV) AND VENOUS PORT REMOVAL (RIGHT CHEST WALL) HISTORY: Patient has a right chest wall port-a-cath, placed Feb 2022, has been working well for more than a year. Recently, has been experiencing redness along the catheter in the subcutaneous tunnel, starts during administration of chemotherapy and slowly resolves before the next chemotherapy sessions. Has been taking antibiotics with no significant relief. No clinical concern for infection/bacteremia; no significant pain and no break in skin/discharge over the port-a-cath. Concern is for catheter breakage. Hence, exchange was requested. CONSENT: Risks, benefits, treatment options, potential complications and personnel to be involved were discussed (including the risks of radiation exposure, contrast and anesthesia administration, and any equipment needed for the procedure to ensure best possible outcome) with the patient and all questions were answered and consent was obtained prior to procedure. MEDICATION RECONCILIATION: The patient's medications and allergies were reviewed in the electronic medical record and reconciled to the proposed procedure/treatment. ELVIA-PROCEDURE DISCUSSION: The appropriate elements of the pre-procedure discussion, safety check list and sign-out were performed. TIME OUT: A time out was performed immediately prior to procedure start with the nursing, and interventional team, correctly identifying the name, date of , procedure, anatomy (including marking of site and side if applicable), patient position, procedure consent form, relevant diagnostic and radiology test results, antibiotic administration if applicable, safety precautions, and procedure-specific equipment needs. Start of procedure (Time out): 1059 End of procedure (Sign out): 1148 Patient position: Supine Anesthesia: After establishing pulse oximetry, BP and EKG monitoring by the Radiology nurse, moderate sedation with Versed and Fentanyl was administered. Intra-service time (monitoring for moderate sedation): 58 minutes Patient monitoring: I personally supervised and directed an independent trained observer who assisted in monitoring the patient?s level of consciousness and physiological status throughout the procedure. Local anesthesia: 2 % lidocaine ANTIBIOTICS: Ancef Antibiotic infusion start time: 1017 CONTRAST DOSE: None IMAGE GUIDANCE: Fluoroscopic and sonographic guidance was used. Ultrasound demonstrated patency of the target vein without filling defects. Access was obtained under direct sonographic visualization. A sonographic image of the vessel was obtained and placed into the permanent archive for documentation. FLUOROSCOPIC RADIATION SUMMARY: Plane A, Air Kerma: 1.0 mGy Dose Area Product (DAP): Fluoro Time: 3:42 min:sec Radiation dose exceed 5 Gy: No If radiation dose exceeded 5 Gy, was counseling and instructional brochure provided:N/A TECHNIQUE: The patient was prepped and draped using all elements of maximal sterile barrier technique (cap, mask, sterile gown, sterile gloves, a large sterile sheet, hand hygiene and cutaneous antisepsis), sterile ultrasound gel and sterile ultrasound probe covers. VENOUS PORT PLACEMENT (VIA LEFT IJV): Access Local anesthesia was administered. The vessel was sonographically evaluated and determined to be patent. Real time ultrasound was used to visualize needle entry into the vessel and a permanent image was stored. Vein accessed: Internal jugular vein - left Access technique: Micropuncture set with 21 gauge needle Port placement An incision was made at the upper chest along the prior scar, a pocket was created, and the catheter was tunneled subcutaneously to the venous access site and trimmed to appropriate length. The port was inserted into the pocket and the catheter was advanced via a peel-away sheath into the vein under fluoroscopic guidance. The port was sutured into the pocket using absorbable suture. Catheter tip location was fluoroscopically verified and a permanent image was stored. Port placed: 8 F BARD PowerPort by - Groshong (distal valved) silicone catheter with pressure injectable port. Catheter tip position: Right upper atrium Unique Device Identifier: Not available Catheter flush: Normal saline Closure The access site and incision were closed and sterile dressing(s) were applied. Access site closure technique: Tissue adhesive Incision closure technique: Absorbable suture and tissue adhesive Patient discharged from procedure suite with device accessed: No VENOUS PORT REMOVAL (RIGHT CHEST WALL): Local anesthesia was administered. An incision was made at the si (more content not included)... [facility] IR PORTOCATH PLACEMENTon IR PORTOCATH PLACEMENT * * *Final Report* * * DATE OF EXAM: Dec 29 2023 12:03PM [facility] [id number] - IR PORTOCATH PLACEMENT / PROCEDURE REASON: Central line complication, initial encounter [T82.9XXA] * * * * Physician Interpretation * * * * PROCEDURE: VENOUS PORT PLACEMENT (VIA LEFT IJV) AND VENOUS PORT REMOVAL (RIGHT CHEST WALL) HISTORY: Patient has a right chest wall port-a-cath, placed Feb 2022, has been working well for more than a year. Recently, has been experiencing redness along the catheter in the subcutaneous tunnel, starts during administration of chemotherapy and slowly resolves before the next chemotherapy sessions. Has been taking antibiotics with no significant relief. No clinical concern for infection/bacteremia; no significant pain and no break in skin/discharge over the port-a-cath. Concern is for catheter breakage. Hence, exchange was requested. CONSENT: Risks, benefits, treatment options, potential complications and personnel to be involved were discussed (including the risks of radiation exposure, contrast and anesthesia administration, and any equipment needed for the procedure to ensure best possible outcome) with the patient and all questions were answered and consent was obtained prior to procedure. MEDICATION RECONCILIATION: The patient's medications and allergies were reviewed in the electronic medical record and reconciled to the proposed procedure/treatment. ELVIA-PROCEDURE DISCUSSION: The appropriate elements of the pre-procedure discussion, safety check list and sign-out were performed. TIME OUT: A time out was performed immediately prior to procedure start with the nursing, and interventional team, correctly identifying the name, date of , procedure, anatomy (including marking of site and side if applicable), patient position, procedure consent form, relevant diagnostic and radiology test results, antibiotic administration if applicable, safety precautions, and procedure-specific equipment needs. Start of procedure (Time out): 1059 End of procedure (Sign out): 1148 Patient position: Supine Anesthesia: After establishing pulse oximetry, BP and EKG monitoring by the Radiology nurse, moderate sedation with Versed and Fentanyl was administered. Intra-service time (monitoring for moderate sedation): 58 minutes Patient monitoring: I personally supervised and directed an independent trained observer who assisted in monitoring the patient?s level of consciousness and physiological status throughout the procedure. Local anesthesia: 2 % lidocaine ANTIBIOTICS: Ancef Antibiotic infusion start time: 1017 CONTRAST DOSE: None IMAGE GUIDANCE: Fluoroscopic and sonographic guidance was used. Ultrasound demonstrated patency of the target vein without filling defects. Access was obtained under direct sonographic visualization. A sonographic image of the vessel was obtained and placed into the permanent archive for documentation. FLUOROSCOPIC RADIATION SUMMARY: Plane A, Air Kerma: 1.0 mGy Dose Area Product (DAP): Fluoro Time: 3:42 min:sec Radiation dose exceed 5 Gy: No If radiation dose exceeded 5 Gy, was counseling and instructional brochure provided:N/A TECHNIQUE: The patient was prepped and draped using all elements of maximal sterile barrier technique (cap, mask, sterile gown, sterile gloves, a large sterile sheet, hand hygiene and cutaneous antisepsis), sterile ultrasound gel and sterile ultrasound probe covers. VENOUS PORT PLACEMENT (VIA LEFT IJV): Access Local anesthesia was administered. The vessel was sonographically evaluated and determined to be patent. Real time ultrasound was used to visualize needle entry into the vessel and a permanent image was stored. Vein accessed: Internal jugular vein - left Access technique: Micropuncture set with 21 gauge needle Port placement An incision was made at the upper chest along the prior scar, a pocket was created, and the catheter was tunneled subcutaneously to the venous access site and trimmed to appropriate length. The port was inserted into the pocket and the catheter was advanced via a peel-away sheath into the vein under fluoroscopic guidance. The port was sutured into the pocket using absorbable suture. Catheter tip location was fluoroscopically verified and a permanent image was stored. Port placed: 8 F BARD PowerPort by - Groshong (distal valved) silicone catheter with pressure injectable port. Catheter tip position: Right upper atrium Unique Device Identifier: Not available Catheter flush: Normal saline Closure The access site and incision were closed and sterile dressing(s) were applied. Access site closure technique: Tissue adhesive Incision closure technique: Absorbable suture and tissue adhesive Patient discharged from procedure suite with device accessed: No VENOUS PORT REMOVAL (RIGHT CHEST WALL): Local anesthesia was administered. An incision was made at the sit (more content not included)... [facility] VASCULAR ACCESS GUIDEo n 12-29-2023 IR US VASCULAR ACCESS GUIDE * * *Final Report* * * DATE OF EXAM: Dec 29 2023 12:03PM [facility] [id number] - [facility] VASCULAR ACCESS GUIDE / PROCEDURE REASON: Central line complication, initial encounter [T82.9XXA] * * * * Physician Interpretation * * * * PROCEDURE: VENOUS PORT PLACEMENT (VIA LEFT IJV) AND VENOUS PORT REMOVAL (RIGHT CHEST WALL) HISTORY: Patient has a right chest wall port-a-cath, placed Feb 2022, has been working well for more than a year. Recently, has been experiencing redness along the catheter in the subcutaneous tunnel, starts during administration of chemotherapy and slowly resolves before the next chemotherapy sessions. Has been taking antibiotics with no significant relief. No clinical concern for infection/bacteremia; no significant pain and no break in skin/discharge over the port-a-cath. Concern is for catheter breakage. Hence, exchange was requested. CONSENT: Risks, benefits, treatment options, potential complications and personnel to be involved were discussed (including the risks of radiation exposure, contrast and anesthesia administration, and any equipment needed for the procedure to ensure best possible outcome) with the patient and all questions were answered and consent was obtained prior to procedure. MEDICATION RECONCILIATION: The patient's medications and allergies were reviewed in the electronic medical record and reconciled to the proposed procedure/treatment. ELVIA-PROCEDURE DISCUSSION: The appropriate elements of the pre-procedure discussion, safety check list and sign-out were performed. TIME OUT: A time out was performed immediately prior to procedure start with the nursing, and interventional team, correctly identifying the name, date of , procedure, anatomy (including marking of site and side if applicable), patient position, procedure consent form, relevant diagnostic and radiology test results, antibiotic administration if applicable, safety precautions, and procedure-specific equipment needs. Start of procedure (Time out): 1059 End of procedure (Sign out): 1148 Patient position: Supine Anesthesia: After establishing pulse oximetry, BP and EKG monitoring by the Radiology nurse, moderate sedation with Versed and Fentanyl was administered. Intra-service time (monitoring for moderate sedation): 58 minutes Patient monitoring: I personally supervised and directed an independent trained observer who assisted in monitoring the patient?s level of consciousness and physiological status throughout the procedure. Local anesthesia: 2 % lidocaine ANTIBIOTICS: Ancef Antibiotic infusion start time: 7 CONTRAST DOSE: None IMAGE GUIDANCE: Fluoroscopic and sonographic guidance was used. Ultrasound demonstrated patency of the target vein without filling defects. Access was obtained under direct sonographic visualization. A sonographic image of the vessel was obtained and placed into the permanent archive for documentation. FLUOROSCOPIC RADIATION SUMMARY: Plane A, Air Kerma: 1.0 mGy Dose Area Product (DAP): Fluoro Time: 3:42 min:sec Radiation dose exceed 5 Gy: No If radiation dose exceeded 5 Gy, was counseling and instructional brochure provided:N/A TECHNIQUE: The patient was prepped and draped using all elements of maximal sterile barrier technique (cap, mask, sterile gown, sterile gloves, a large sterile sheet, hand hygiene and cutaneous antisepsis), sterile ultrasound gel and sterile ultrasound probe covers. VENOUS PORT PLACEMENT (VIA LEFT IJV): Access Local anesthesia was administered. The vessel was sonographically evaluated and determined to be patent. Real time ultrasound was used to visualize needle entry into the vessel and a permanent image was stored. Vein accessed: Internal jugular vein - left Access technique: Micropuncture set with 21 gauge needle Port placement An incision was made at the upper chest along the prior scar, a pocket was created, and the catheter was tunneled subcutaneously to the venous access site and trimmed to appropriate length. The port was inserted into the pocket and the catheter was advanced via a peel-away sheath into the vein under fluoroscopic guidance. The port was sutured into the pocket using absorbable suture. Catheter tip location was fluoroscopically verified and a permanent image was stored. Port placed: 8 F BARD PowerPort by - Groshong (distal valved) silicone catheter with pressure injectable port. Catheter tip position: Right upper atrium Unique Device Identifier: Not available Catheter flush: Normal saline Closure The access site and incision were closed and sterile dressing(s) were applied. Access site closure technique: Tissue adhesive Incision closure technique: Absorbable suture and tissue adhesive Patient discharged from procedure suite with device accessed: No VENOUS PORT REMOVAL (RIGHT CHEST WALL): Local anesthesia was administered. An incision was made at th (more content not included)... [facility] NURSING PROGon 12-29-2023 NURSING PROG HNO ID: [id number] Author: SUNNY PAULA RN Service: Nursing Author Type: Registered Nurse Type: Nursing Progress Note Filed: 12/29/2023 10:51 Note Text: PATIENT EDUCATION TOPIC: PROCEDURE / SURGERY: Procedure/Surgery: Port removal and replacement PATIENT NAME: Trinity Perry PATIENT LOCATION: AV Rad Proc/AV Rad Proc READINESS TO LEARN COGNITIVE ABILITY: Alert and oriented MOTIVATION TO LEARN: Interested FAMILY SUPPORT: High - Very involved in pt care INSTRUCTION PROVIDED TO: Patient and family member PATIENT LEARNS BEST BY: Written Instruction - Hand-outs FACTORS AFFECTING LEARNING: None PHYSICAL LIMITATIONS AFFECTING LEARNING: None LEARNING RESPONSE DIAGNOSIS: ADULT: malignant neoplasm of pancreas head PATIENT/FAMILY RESPONSE: Verbalizes understanding of: POST-PROCEDURE INSTRUCTIONS-Correct actions to take to reduce post procedure complications PRE-PROCEDURE INSTRUCTIONS-Correct action to take to follow pre-procedure instructions METHOD OF INSTRUCTION: Written instruction/Handouts FOLLOW-UP PLAN: Patient instructed to call with any further issues INSTRUCTIONAL AIDS USED: NA SUPPLEMENTAL MATERIAL PROVIDED TO PATIENT: patient provided written instructions for port placement and sedation education REFERRAL (RECOMMENDATION): None Electronically Signed By: Sunny Paula [facility] SURGICAL PATHOLOGYon 024 CASE REPORT [facility] Comment on above: Order Comment: Noemí hoff Type: TISSUE SPECIMEN Ordering Facility: [facility] Address: [address] [place] [address] Result Comment: Surg ical Pathology Report Case: [id number] Authorizing Provider: Cathy, Collected: 12/29/2023 11:43 AM MD Jhonny Ordering Location: [facility] Radiology Received: 12/29/2023 12:40 PM Procedure Pathologist: Sha Reyes MD Specimen: Hardware/Device/Foreign Body Performed By: #### S #### [facility] CLIA [id number] [address] [place] [address] [place] [address] [place] CLINICAL HISTORY Potentially leaking catheter in a venous ported catheter [facility] Comment on above: Order Comment: Specmack hoff Type: TISSUE SPECIMEN Ordering Facility: [facility] Address: [address] [place] [address] Performed By: #### S #### [facility] CLIA [id number] [address] [place] [address] FINAL DIAGNOSIS [facility] Comment on above: Order Comment: Speci men Type: TISSUE SPECIMEN Ordering Facility: [facility] Address: [address] [place] [address] Result Comment: A. U nspecified site, device removal: -Mediport with attached catheter (gross examination only). KOURTNEY/RSA 01/01/2024 Performed By: #### S #### [facility] CLIA [id number] [address] [place] [address] FINAL PERFORMING LAB [facility] Comment on above: Order Comment: Speci men Type: TISSUE SPECIMEN Ordering Facility: [facility] Address: [address] [place] [address] Result Comment: Diag nostic interpretation performed at [facility], [address] [place] [address] CLIA# [id number] Bearing Grinder: Gilbert Gray M.D. Performed By: #### S #### [facility] CLIA [id number] [address] [place] [address] OF [place] GROSS DESCRIPTION [facility] Comment on above: Order Comment: Speci men Type: TISSUE SPECIMEN Ordering Facility: [facility] Address: [address] [place] [address] Result Comment: A. H ardware/Device/Foreign Body Received fresh labeled hardware/device/foreign body is a Mediport (2.8 x 2.4 x 1.6 cm) with attached catheter (23 cm in length by 0.3 cm in diameter). The following inscription is noted CT [facility] 2303 . No tissue is present or submitted. This case is reviewed with Dr. Ballesteros. Gross examination only. Gross examination performed at [facility], [address] [place] [id number] CLIA#[id number] [facility] January 01, 2024 11:39 AM Performed By: #### S #### [facility] CLIA [id number] [address] [facility] [id number] [place], [place] [id number] [place] Yoko 12-27-2023 CNPN Telephone (AVXRPR) ----- TRINITY PERRY ([id number]) 1950 M Date Time Provider Department 12/27/23 ADINA SCHMITZ AVXRPR During your visit today, we recorded the following information about you: Adina Schmitz RN 12/27/2023 12:17 PM Signed You are scheduled for a Port Removal, On 12/29/2023. You are to arrive at 09:00 am and Report to [facility]: [facility]: Radiology Outpatient Desk [id number] You can expect to be here for 2-4 hours. Diet: Do not eat any solid food after MIDNIGHT the day of/night before your procedure. You may drink clear liquids until 08:00am, which means black coffee, apple juice, black tea, or water only. Medications: Ok to take your cardiac, blood pressure, anti-seizure, and chronic pain medications with a sip of water, please take prior to arrival. Bring your current medication list. RADIOLOGY RECOMMENDS THESE MEDICATION RESTRICTIONS: IFok with your Prescribing Provider: Hold short acting insulin the day of procedure. Long acting insulin, take ? dose. If on mixed insulin - if BG> than 200 should take half the dose. If BG less < 200- don't take. Special concerns: Do you have any attached medical devices? Yes, patient advised to do finger stick glucose as needed. Insulin pumps must be removed before entering the procedure room. Do you wear Neulasta Onpro? No. If yes, the device must be removed before entering the procedure room. Do you use CPAP or BPAP? No. Contrast Dye Prep: Do you have a contrast dye allergy? No. Labs: Lab-work needs to be drawn? No.. Exhibit Specialist/Transportation: How will you be arriving for your procedure? Private car. You will need a responsible adult to accompany you to and from the procedure. Your ems driver is required to stay with you until you are taken into the procedure room. _ Allergies As of Date: 12/27/2023 (No Known Allergies) Date Reviewed: 12/13/2023 Reviewed by: Greta Wetzel PA-C - Fully Assessed Reason for Visit: Radiology Pre Procedure Instructions [1306] Prescriptions as of 12/27/2023 - midodrine (PROAMATINE) 2.5 mg tablet Take 2.5 mg by mouth. - prochlorperazine (COMPAZINE) 10 mg tablet Take 1 tablet by mouth every 6 hours as needed. - ondansetron (ZOFRAN) 8 mg tablet Take 1 tablet by mouth every 8 hours as needed for nausea/vomiting. - insulin glargine U-300 conc (TOUJEO MAX U-300 SOLOSTAR) 300 unit/mL (3 mL) inpn Inject 300 mL subcutaneously once daily. At night - NOVOLIN 70-30 FLEXPEN U-100 100 unit/mL (70-30) pen INJECT 25 UNITS SUBCUTANEOUSLY IN THE MORNING then INJECT 25 UNITS SUBCUTANEOUSLY IN THE EVENING before a meal - tamsulosin (FLOMAX) 0.4 mg Take 0.4 mg by mouth once daily. - ZINC ORAL Take 50 mcg by mouth once daily. - finasteride (PROSCAR) 5 mg tablet Take 5 mg by mouth once daily. - pantoprazole DR (PROTONIX) 20 mg tablet Take 1 tablet by mouth once daily. 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 Severe protein-calorie malnutrition (HCC) [E43] 12/05/2019 Obesity, Class II, BMI 35-39.9 [E66.9] 12/06/2019 05/08/2020 Malignant neoplasm of head of pancreas (HCC) [C*12/20/2019 Sepsis (HCC) [A41.9] 03/09/2020 03/13/2020 Postprocedural intraabdominal abscess [T81.43XA*03/20/2020 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] 04/07/2020 Deep vein thrombosis (DVT) of both upper extrem*04/07/2020 Insulin long-term use (HCC) [Z79.4] 05/08/2020 Chronic abdominal wound infection [S31.109A, L0*05/11/2020 Abdominal pain [R10.9] 12/01/2020 Acute colitis [K52.9] 12/03/2020 Acute urinary retention [R33.8] 12/26/2020 Pancreatitis [K85.90] 02/05/2021 Bacteremia, escherichia coli [R78.81, B96.20] 03/15/2021 Malignant neoplasm of pancreas (HCC) [C25.9] 02/22/2022 Diabetes mellitus due to underlying condition w*06/07/2023 En[facility] Status:[facility] Telephone (AVXRPR) ----- TRINITY PERRY ([id number]) 1950 M Date Time Provider Department 12/26/23 LUISA CAMERON AVXRNILS During your visit today, we recorded the following information about you: Luisa Cameron RN 12/26/2023 11:19 AM Signed Called pt unable to leave message at Home #. Left message non detailed message on Cell phone to call back to Radiology Office # Allergies As of Date: 12/26/2023 (No Known Allergies) Date Reviewed: 12/13/2023 Reviewed by: Greta Wetzel PA-C - Fully Assessed Reason for Visit: Radiology Pre Procedure Instructions [1506] Prescriptions as of 12/26/2023 - midodrine (PROAMATINE) 2.5 mg tablet Take 2.5 mg by mouth. - prochlorperazine (COMPAZINE) 10 mg tablet Take 1 tablet by mouth every 6 hours as needed. - ondansetron (ZOFRAN) 8 mg tablet Take 1 tablet by mouth every 8 hours as needed for nausea/vomiting. - insulin glargine U-300 conc (TOUJEO MAX U-300 SOLOSTAR) 300 unit/mL (3 mL) inpn Inject 300 mL subcutaneously once daily. At night - NOVOLIN 70-30 FLEXPEN U-100 100 unit/mL (70-30) pen INJECT 25 UNITS SUBCUTANEOUSLY IN THE MORNING then INJECT 25 UNITS SUBCUTANEOUSLY IN THE EVENING before a meal - tamsulosin (FLOMAX) 0.4 mg Take 0.4 mg by mouth once daily. - ZINC ORAL Take 50 mcg by mouth once daily. - finasteride (PROSCAR) 5 mg tablet Take 5 mg by mouth once daily. - pantoprazole DR (PROTONIX) 20 mg tablet Take 1 tablet by mouth once daily. 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 Severe protein-calorie malnutrition (HCC) [E43] 12/05/2019 Obesity, Class II, BMI 35-39.9 [E66.9] 12/06/2019 05/08/2020 Malignant neoplasm of head of pancreas (HCC) [C*12/20/2019 Sepsis (HCC) [A41.9] 03/09/2020 03/13/2020 Postprocedural intraabdominal abscess [T81.43XA*03/20/2020 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] 04/07/2020 Deep vein thrombosis (DVT) of both upper extrem*04/07/2020 Insulin long-term use (HCC) [Z79.4] 05/08/2020 Chronic abdominal wound infection [S31.109A, L0*05/11/2020 Abdominal pain [R10.9] 12/01/2020 Acute colitis [K52.9] 12/03/2020 Acute urinary retention [R33.8] 12/26/2020 Pancreatitis [K85.90] 02/05/2021 Bacteremia, escherichia coli [R78.81, B96.20] 03/15/2021 Malignant neoplasm of pancreas (HCC) [C25.9] 02/22/2022 Diabetes mellitus due to underlying condition w*06/07/2023 Encounter Status:Closed by LUISA CAMERON on 12/26/23 [facility] 12-25-2023 [facility] Telephone (AVXRPR) ----- TRINITY PERRY ([id number]) 1950 [place] Date Time Provider Department 12/25/23 DONNELL SWENSON AVXRPR During your visit today, we recorded the following information about you: Allergies As of Date: 12/25/2023 (No Known Allergies) Date Reviewed: 12/13/2023 Reviewed by: Greta Wetzel PA-C - Fully Assessed Prescriptions as of 12/25/2023 - midodrine (PROAMATINE) 2.5 mg tablet Take 2.5 mg by mouth. - prochlorperazine (COMPAZINE) 10 mg tablet Take 1 tablet by mouth every 6 hours as needed. - ondansetron (ZOFRAN) 8 mg tablet Take 1 tablet by mouth every 8 hours as needed for nausea/vomiting. - insulin glargine U-300 conc (TOUJEO MAX U-300 SOLOSTAR) 300 unit/mL (3 mL) inpn Inject 300 mL subcutaneously once daily. At night - NOVOLIN 70-30 FLEXPEN U-100 100 unit/mL (70-30) pen INJECT 25 UNITS SUBCUTANEOUSLY IN THE MORNING then INJECT 25 UNITS SUBCUTANEOUSLY IN THE EVENING before a meal - tamsulosin (FLOMAX) 0.4 mg Take 0.4 mg by mouth once daily. - ZINC ORAL Take 50 mcg by mouth once daily. - finasteride (PROSCAR) 5 mg tablet Take 5 mg by mouth once daily. - pantoprazole DR (PROTONIX) 20 mg tablet Take 1 tablet by mouth once daily. 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 Severe protein-calorie malnutrition (HCC) [E43] 12/05/2019 Obesity, Class II, BMI 35-39.9 [E66.9] 12/06/2019 05/08/2020 Malignant neoplasm of head of pancreas (HCC) [C*12/20/2019 Sepsis (HCC) [A41.9] 03/09/2020 03/13/2020 Postprocedural intraabdominal abscess [T81.43XA*03/20/2020 half-way current use of anticoagulant [Z79.01] 04/07/2020 Deep vein thrombosis (DVT) of both upper extrem*04/07/2020 Insulin long-term use (HCC) [Z79.4] 05/08/2020 Chronic abdominal wound infection [S31.109A, L0*05/11/2020 Abdominal pain [R10.9] 12/01/2020 Acute colitis [K52.9] 12/03/2020 Acute urinary retention [R33.8] 12/26/2020 Pancreatitis [K85.90] 02/05/2021 Bacteremia, escherichia coli [R78.81, B96.20] 03/15/2021 Malignant neoplasm of pancreas (HCC) [C25.9] 02/22/2022 Diabetes mellitus due to underlying condition w*06/07/2023 Encounter Status:Closed by DONNELL SWENSON on 12/25/23 [facility] CBC W Auto Differential pane l (Bld)on 12-11-2023 Basophils (Bld) [#/Vol] [facility] Basophils/100 WBC (Bld) 0.4 % [facility] Differential cell count method Nom (Bld) Auto [facility] Eosinophils (Bld) [#/Vol] 0.04 10*3/uL [facility] Eosinophils/100 WBC (Bld) 0.8 % [facility] Erythrocyte distribution width (RBC) [Ratio] 16.3 % High 11.5 - 15.0 % [facility] Hematocrit (Bld) [Volume fraction] 34.5 % Low 39.0 - 51.0 % [facility] Hemoglobin (Bld) [Mass/Vol] 11.0 g/dL Low 13.0 - 17.0 g/dL [facility] Immature granulocytes (Bld) [#/Vol] [facility] Immature granulocytes/100 WBC (Bld) 0.4 % [facility] Interpretation and review of laboratory results Abnormal [facility] Lymphocytes (Bld) [#/Vol] 1.76 10*3/uL [facility] Lymphocytes/100 WBC (Bld) 35.3 % [facility] MCH (RBC) [Entitic mass] 30.0 pg 26.0 - 34.0 pg [facility] MCHC (RBC) [Mass/Vol] 31.9 g/dL 30.5 - 36.0 g/dL [facility] MCV (RBC) [Entitic vol] 94.0 fL 80.0 - 100.0 fL [facility] Monocytes (Bld) [#/Vol] 0.70 10*3/uL [facility] Monocytes/100 WBC (Bld) 14.1 % [facility] Neutrophils (Bld) [#/Vol] 2.44 10*3/uL [facility] Neutrophils/100 WBC (Bld) 49.0 % [facility] Nucleated RBC (Bld) [#/Vol] NINF [facility] Nucleated RBC/100 WBC (Bld) [Ratio] 0.0 % /100 WBC [facility] Platelet mean volume (Bld) [Entitic vol] 9.5 fL 9.0 - 12.7 fL [facility] Platelets (Bld) [#/Vol] 266 10*3/uL [facility] RBC (Bld) [#/Vol] 3.67 10*6/uL Low 4.20 - 6.0 0 m/uL [facility] WBC (Bld) [#/Vol] 4.98 10*3/uL [facility] Basophils (Bld) [#/Vol] 10*3/uL Normal <0.11 [facility] Comment on above: Order Comment: Speci men Type: BLOOD SPECIMENOrdering Facility: [facility] Address: [address] [place] [address] Performed By: #### 5 7021-8 ####[facility] LABCLIA [id number] [place] [address] Basophils/100 WBC (Bld) 0.4 % Normal [facility] Comment on above: Order Comment: Speci men Type: BLOOD SPECIMENOrdering Facility: [facility] Address: [address] [place] [address] Performed By: #### 5 7021-8 ####[facility] LABCLIA [id number] [place] [address] Differential cell count method Nom (Bld) Auto Normal [facility] Comment on above: Order Comment: Speci men Type: BLOOD SPECIMENOrdering Facility: [facility] Address: [address] [place] [address] Performed By: #### 5 7021-8 ####[facility] LABCLIA [id number] [place] [address] Eosinophils (Bld) [#/Vol] 0.04 10*3/uL Normal <0.46 [facility] Comment on above: Order Comment: Speci men Type: BLOOD SPECIMENOrdering Facility: [facility] Address: [address] [place] [address] Performed By: #### 5 7021-8 ####[facility] LABCLIA [id number] [place] [address] Eosinophils/100 WBC (Bld) 0.8 % Normal [facility] Comment on above: Order Comment: Speci men Type: BLOOD SPECIMENOrdering Facility: [facility] Address: [address] [place] [address] Performed By: #### 5 7021-8 ####[facility] LABCLIA [id number] [place] [address] Erythrocyte distribution width (RBC) [Ratio] 16.3 % High 11.5-15.0 [facility] Comment on above: Order Comment: Speci men Type: BLOOD SPECIMENOrdering Facility: [facility] Address: [address] [place] [address] Performed By: #### 5 7021-8 ####[facility] LABCLIA [id number] [place] [address] Hematocrit (Bld) [Volume fraction] 34.5 % Low 39.0-51.0 [facility] Comment on above: Order Comment: Speci men Type: BLOOD SPECIMENOrdering Facility: [facility] Address: [address] [place] [address] Performed By: #### 5 7021-8 ####[facility] LABCLIA [id number] [place] [address] Hemoglobin (Bld) [Mass/Vol] 11.0 g/dL Low 13.0-17.0 [facility] Comment on above: Order Comment: Speci men Type: BLOOD SPECIMENOrdering Facility: [facility] Address: [address] [place] [address] Performed By: #### 5 7021-8 ####[facility] LABCLIA [id number] [place] [address] Immature granulocytes (Bld) [#/Vol] 10*3/uL Normal <0.10 [facility] Comment on above: Order Comment: Speci men Type: BLOOD SPECIMENOrdering Facility: [facility] Address: [address] [place] [address] Performed By: #### 5 7021-8 ####[facility] LABCLIA [id number] [place] [address] Immature granulocytes/100 WBC (Bld) 0.4 % Normal [facility] Comment on above: Order Comment: Speci men Type: BLOOD SPECIMENOrdering Facility: [facility] Address: [address] [place] [address] Performed By: #### 5 7021-8 ####[facility] LABCLIA [id number] [place] [address] Lymphocytes (Bld) [#/Vol] 1.76 10*3/uL Normal 1.00-4.00 [facility] Comment on above: Order Comment: Speci men Type: BLOOD SPECIMENOrdering Facility: [facility] Address: [address] [place] [address] Performed By: #### 5 7021-8 ####[facility] LABCLIA [id number] [place] [address] Lymphocytes/100 WBC (Bld) 35.3 % Normal [facility] Comment on above: Order Comment: Speci men Type: BLOOD SPECIMENOrdering Facility: [facility] Address: [address] [place] [address] Performed By: #### 5 7021-8 ####[facility] LABCLIA [id number] [place] [address] MCH (RBC) [Entitic mass] 30.0 pg Normal 26.0-34.0 [facility] Comment on above: Order Comment: Speci men Type: BLOOD SPECIMENOrdering Facility: [facility] Address: [address] [place] [address] Performed By: #### 5 7021-8 ####[facility] LABCLIA [id number] [place] [address] MCHC (RBC) [Mass/Vol] 31.9 g/dL Normal 30.5-36.0 [facility] Comment on above: Order Comment: Speci men Type: BLOOD SPECIMENOrdering Facility: [facility] Address: [address] [place] [address] Performed By: #### 5 7021-8 ####[facility] LABCLIA [id number] [place] [address] MCV (RBC) [Entitic vol] 94.0 fL Normal 80.0-100.0 [facility] Comment on above: Order Comment: Speci men Type: BLOOD SPECIMENOrdering Facility: [facility] Address: [address] [place] [address] Performed By: #### 5 7021-8 ####[facility] LABCLIA [id number] [place] [address] Monocytes (Bld) [#/Vol] 0.70 10*3/uL Normal <0.87 [facility] Comment on above: Order Comment: Speci men Type: BLOOD SPECIMENOrdering Facility: [facility] Address: [address] [place] [address] Performed By: #### 5 7021-8 ####[facility] LABCLIA [id number] [place] [address] Monocytes/100 WBC (Bld) 14.1 % Normal [facility] Comment on above: Order Comment: Speci men Type: BLOOD SPECIMENOrdering Facility: [facility] Address: [address] [place] [address] Performed By: #### 5 7021-8 ####[facility] LABCLIA [id number] [place] [address] Neutrophils (Bld) [#/Vol] 2.44 10*3/uL Normal 1.45-7.50 [facility] Comment on above: Order Comment: Speci men Type: BLOOD SPECIMENOrdering Facility: [facility] Address: [address] [place] [address] Performed By: #### 5 7021-8 ####[facility] LABCLIA [id number] [place] [address] Neutrophils/100 WBC (Bld) 49.0 % Normal [facility] Comment on above: Order Comment: Speci men Type: BLOOD SPECIMENOrdering Facility: [facility] Address: [address] [place] [address] Performed By: #### 5 7021-8 ####[facility] LABCLIA [id number] [place] [address] Nucleated RBC (Bld) [#/Vol] 10*3/uL Normal <0.01 [facility] Comment on above: Order Comment: Speci men Type: BLOOD SPECIMENOrdering Facility: [facility] Address: [address] [place] [address] Performed By: #### 5 7021-8 ####[facility] LABCLIA [id number] [place] [address] Nucleated RBC/100 WBC (Bld) [Ratio] 0.0 /100 WBC Normal [facility] Comment on above: Order Comment: Speci men Type: BLOOD SPECIMENOrdering Facility: [facility] Address: [address] [place] [address] Performed By: #### 5 7021-8 ####[facility] LABCLIA [id number] [place] [address] Platelet mean volume (Bld) [Entitic vol] 9.5 fL Normal 9.0-12.7 [facility] Comment on above: Order Comment: Speci men Type: BLOOD SPECIMENOrdering Facility: [facility] Address: [address] [place] [address] Performed By: #### 5 7021-8 ####[facility] LABCLIA [id number] [place] [address] Platelets (Bld) [#/Vol] 266 10*3/uL Normal 150-400 [facility] Comment on above: Order Comment: Speci men Type: BLOOD SPECIMENOrdering Facility: [facility] Address: [address] [place] [address] Performed By: #### 5 7021-8 ####[facility] LABIA [id number] [place] [address] RBC (Bld) [#/Vol] 3.67 10*6/uL Low 4.20-6.00 [facility] Comment on above: Order Comment: Speci men Type: BLOOD SPECIMENOrdering Facility: [facility] Address: [address] [place] [address] Performed By: #### 5 7021-8 ####[facility] LABIA [id number] [place] [address] WBC (Bld) [#/Vol] 4.98 10*3/uL Normal 3.70-11.00 [facility] Comment on above: Order Comment: Speci men Type: BLOOD SPECIMENOrdering Facility: [facility] Address: [address] [place] [address] Performed By: #### 5 7021-8 ####[facility] LABIA [id number] [place] [address] CNOVSPon 12-11-2023 CNOVSP Normal [facility] Comprehensive metabolic 2000 panelOrdered By: Je Elias on 12-11-2023 Albumin [Mass/Vol] 3.9 g/dL 3.9 - 4.9 g/dL [facility] ALP [Catalytic activity/Vol] 158 U/L High 38 - 113 U/L [facility] ALT [Catalytic activity/Vol] 16 U/L 10 - 54 U/L [facility] Anion gap [Moles/Vol] 8 mmol/L 8 - 15 mmol/L [facility] AST [Catalytic activity/Vol] 14 U/L 14 - 40 U/L [facility] Bilirubin [Mass/Vol] 0.5 mg/dL 0.2 - 1 .3 mg/dL [facility] Calcium [Mass/Vol] 10.4 mg/dL High 8.5 - 10. 2 mg/dL [facility] Chloride [Moles/Vol] 104 mmol/L 98 - 10 7 mmol/L [facility] CO2 [Moles/Vol] 25 mmol/L 22 - 30 mmol/L [facility] Creatinine [Mass/Vol] 0.95 mg/dL 0.73 - 1.22 mg/dL [facility] GFR/1.73 sq M.predicted among non-blacks MDRD (S/P/Bld) [Vol rate/Area] 85 mL/min/{1.73_m2} - PINF [facility] Comment on above: Estimated Glomerular Filtration [...] not accurately reflect actual GFR. Glucose [Mass/Vol] 127 mg/dL High 74 - 99 mg/dL [facility] Comment on above: The [place] [employer] (ADA) provides guidance for [...] Standards of Medical Care in Diabetes 2016, [place] [employer]. Diabetes Care. 2016.39(Suppl 1). Interpretation and review of laboratory results Abnormal [facility] Potassium [Moles/Vol] 4.5 mmol/L 3.7 - 5.1 mmol/L [facility] Protein [Mass/Vol] 6.9 g/dL 6.3 - 8.0 g/dL [facility] Sodium [Moles/Vol] 137 mmol/L 136 - 144 mmol/L [facility] Urea nitrogen [Mass/Vol] 21 mg/dL 9 - 24 mg/dL [facility] Comprehensive metabolic 2000 panelon 12-11-2023 Albumin [Mass/Vol] 3.9 g/dL Normal 3.9-4.9 [facility] Comment on above: Order Comment: Speci men Type: BLOOD SPECIMENOrdering Facility: [facility] Address: [address] [place] [address] Performed By: #### 2 4323-8 ####[facility] LABCLIA [id number] [place] [address] ALP [Catalytic activity/Vol] 158 U/L High 38-113 [facility] Comment on above: Order Comment: Speci men Type: BLOOD SPECIMENOrdering Facility: [facility] Address: [address] [place] [address] Performed By: #### 2 4323-8 ####[facility] LABCLIA [id number] [place] [address] ALT [Catalytic activity/Vol] 16 U/L Normal 10-54 [facility] Comment on above: Order Comment: Speci men Type: BLOOD SPECIMENOrdering Facility: [facility] Address: [address] [place] [address] Performed By: #### 2 4323-8 ####[facility] LABCLIA [id number] [place] [address] Anion gap [Moles/Vol] 8 mmol/L Normal 8-15 [facility] Comment on above: Order Comment: Speci men Type: BLOOD SPECIMENOrdering Facility: [facility] Address: [address] [place] [address] Performed By: #### 2 4323-8 ####[facility] LABCLIA [id number] [place] [address] AST [Catalytic activity/Vol] 14 U/L Normal 14-40 [facility] Comment on above: Order Comment: Speci men Type: BLOOD SPECIMENOrdering Facility: [facility] Address: [address] [place] [address] Performed By: #### 2 4323-8 ####[facility] LABCLIA [id number] [place] [address] Bilirubin [Mass/Vol] 0.5 mg/dL Normal 0.2-1.3 [facility] Comment on above: Order Comment: Speci men Type: BLOOD SPECIMENOrdering Facility: [facility] Address: [address] [place] [address] Performed By: #### 2 4323-8 ####[facility] LABCLIA [id number] [place] [address] Calcium [Mass/Vol] 10.4 mg/dL High 8.5-10.2 [facility] Comment on above: Order Comment: Speci men Type: BLOOD SPECIMENOrdering Facility: [facility] Address: [address] [place] [address] Performed By: #### 2 4323-8 ####[facility] LABCLIA [id number] [place] [address] Chloride [Moles/Vol] 104 mmol/L Normal 98-107 [facility] Comment on above: Order Comment: Speci men Type: BLOOD SPECIMENOrdering Facility: [facility] Address: [address] [place] [address] Performed By: #### 2 4323-8 ####[facility] LABCLIA [id number] [place] [address] CO2 [Moles/Vol] 25 mmol/L Normal 22-30 [facility] Comment on above: Order Comment: Speci men Type: BLOOD SPECIMENOrdering Facility: [facility] Address: [address] [place] [address] Performed By: #### 2 4323-8 ####[facility] LABCLIA [id number] [place] [address] Creatinine [Mass/Vol] 0.95 mg/dL Normal 0.73-1.22 [facility] Comment on above: Order Comment: Noemí hoff Type: BLOOD SPECIMENOrdering Facility: [facility] Address: [address] [place], [place] [id number] Performed By: #### 2 4323-8 ####[facility] LABCLIA [id number] [place] [address] Creatinine and Glomerular filtration rate.predicted panel (S/P/Bld) 85 mL/min/1.73m??? Normal >=60 [facility] Comment on above: Order Comment: Noemí hoff Type: BLOOD SPECIMENOrdering Facility: [facility] Address: [address] [place] [address] Result Comment: Kathy mated Glomerular Filtration Rate [...] actual GFR. Performed By: #### 2 4323-8 ####[facility] LABCLIA [id number] [place] [address] Glucose [Mass/Vol] 127 mg/dL High 74-99 [facility] Comment on above: Order Comment: Noemí hoff Type: BLOOD SPECIMENOrdering Facility: [facility] Address: [address] [place], [place] [id number] Result Comment: The [place] [employer] (ADA) provides guidance for cutoff [...] Standards of Medical Care in Diabetes 2016, [place] [employer]. Diabetes Care. 2016.39(Suppl 1). Performed By: #### 2 4323-8 ####[facility] LABCLIA [id number] [place] [address] Potassium [Moles/Vol] 4.5 mmol/L Normal 3.7-5.1 [facility] Comment on above: Order Comment: Speci men Type: BLOOD SPECIMENOrdering Facility: [facility] Address: [address] [place] [address] Performed By: #### 2 4323-8 ####[facility] LABCLIA [id number] [place] [address] Protein [Mass/Vol] 6.9 g/dL Normal 6.3-8.0 [facility] Comment on above: Order Comment: Speci men Type: BLOOD SPECIMENOrdering Facility: [facility] Address: [address] [place] [address] Performed By: #### 2 4323-8 ####[facility] LABCLIA [id number] [place] [address] Sodium [Moles/Vol] 137 mmol/L Normal 136-144 [facility] Comment on above: Order Comment: Speci men Type: BLOOD SPECIMENOrdering Facility: [facility] Address: [address] [place] [address] Performed By: #### 2 4323-8 ####[facility] LABCLIA [id number] [place] [address] Urea nitrogen [Mass/Vol] 21 mg/dL Normal 9-24 [facility] Comment on above: Order Comment: Speci men Type: BLOOD SPECIMENOrdering Facility: [facility] Address: [address] [place] [address] Performed By: #### 2 4323-8 ####[facility] LABCLIA [id number] [place] [address] CNPNon 12-05-2023 CNPN Normal [facility] CNPNon 11-28-2023 [facility] CBC W Auto Differential pane l (Bld)on 11-20-2023 Basophils (Bld) [#/Vol] 0.03 10*3/uL [facility] Basophils/100 WBC (Bld) 0.7 % [facility] Differential cell count method Nom (Bld) Auto [facility] Eosinophils (Bld) [#/Vol] 0.07 10*3/uL [facility] Eosinophils/100 WBC (Bld) 1.6 % [facility] Erythrocyte distribution width (RBC) [Ratio] 16.7 % High 11.5 - 15.0 % [facility] Hematocrit (Bld) [Volume fraction] 33.9 % Low 39.0 - 51.0 % [facility] Hemoglobin (Bld) [Mass/Vol] 10.8 g/dL Low 13.0 - 17.0 g/dL [facility] Immature granulocytes (Bld) [#/Vol] [facility] Immature granulocytes/100 WBC (Bld) 0.2 % [facility] Interpretation and review of laboratory results Abnormal [facility] Lymphocytes (Bld) [#/Vol] 1.87 10*3/uL [facility] Lymphocytes/100 WBC (Bld) 43.6 % [facility] MCH (RBC) [Entitic mass] 30.4 pg 26.0 - 34.0 pg [facility] MCHC (RBC) [Mass/Vol] 31.9 g/dL 30.5 - 36.0 g/dL [facility] MCV (RBC) [Entitic vol] 95.5 fL 80.0 - 100.0 fL [facility] Monocytes (Bld) [#/Vol] 0.58 10*3/uL [facility] Monocytes/100 WBC (Bld) 13.5 % [facility] Neutrophils (Bld) [#/Vol] 1.73 10*3/uL [facility] Neutrophils/100 WBC (Bld) 40.4 % [facility] Nucleated RBC (Bld) [#/Vol] [facility] Nucleated RBC/100 WBC (Bld) [Ratio] 0.0 % /100 WBC [facility] Platelet mean volume (Bld) [Entitic vol] 9.4 fL 9.0 - 12.7 fL [facility] Platelets (Bld) [#/Vol] 245 10*3/uL [facility] RBC (Bld) [#/Vol] 3.55 10*6/uL Low 4.20 - 6.0 0 m/uL [facility] WBC (Bld) [#/Vol] 4.29 10*3/uL [facility] Basophils (Bld) [#/Vol] 0.03 10*3/uL Normal <0.11 [facility] Comment on above: Order Comment: Speci men Type: BLOOD SPECIMENOrdering Facility: [facility] Address: [address] [place] [address] Performed By: #### 5 7021-8 ####[facility] LABCLIA [id number] [place] [address] Basophils/100 WBC (Bld) 0.7 % Normal [facility] Comment on above: Order Comment: Speci men Type: BLOOD SPECIMENOrdering Facility: [facility] Address: [address] [place] [address] Performed By: #### 5 7021-8 ####[facility] LABCLIA [id number] [place] [address] Differential cell count method Nom (Bld) Auto Normal [facility] Comment on above: Order Comment: Speci men Type: BLOOD SPECIMENOrdering Facility: [facility] Address: [address] [place] [address] Performed By: #### 5 7021-8 ####[facility] LABCLIA [id number] [place] [address] Eosinophils (Bld) [#/Vol] 0.07 10*3/uL Normal <0.46 [facility] Comment on above: Order Comment: Speci men Type: BLOOD SPECIMENOrdering Facility: [facility] Address: [address] [place] [address] Performed By: #### 5 7021-8 ####[facility] LABCLIA [id number] [place] [address] Eosinophils/100 WBC (Bld) 1.6 % Normal [facility] Comment on above: Order Comment: Speci men Type: BLOOD SPECIMENOrdering Facility: [facility] Address: [address] [place] [address] Performed By: #### 5 7021-8 ####[facility] LABCLIA [id number] [place] [address] Erythrocyte distribution width (RBC) [Ratio] 16.7 % High 11.5-15.0 [facility] Comment on above: Order Comment: Speci men Type: BLOOD SPECIMENOrdering Facility: [facility] Address: [address] [place] [address] Performed By: #### 5 7021-8 ####[facility] LABCLIA [id number] [place] [address] Hematocrit (Bld) [Volume fraction] 33.9 % Low 39.0-51.0 [facility] Comment on above: Order Comment: Speci men Type: BLOOD SPECIMENOrdering Facility: [facility] Address: [address] [place] [address] Performed By: #### 5 7021-8 ####[facility] LABCLIA [id number] [place] [address] Hemoglobin (Bld) [Mass/Vol] 10.8 g/dL Low 13.0-17.0 [facility] Comment on above: Order Comment: Speci men Type: BLOOD SPECIMENOrdering Facility: [facility] Address: [address] [place] [address] Performed By: #### 5 7021-8 ####[facility] LABCLIA [id number] [place] [address] Immature granulocytes (Bld) [#/Vol] 10*3/uL Normal <0.10 [facility] Comment on above: Order Comment: Speci men Type: BLOOD SPECIMENOrdering Facility: [facility] Address: [address] [place] [address] Performed By: #### 5 7021-8 ####[facility] LABCLIA [id number] [place] [address] Immature granulocytes/100 WBC (Bld) 0.2 % Normal [facility] [facility] Comment on above: Order Comment: Speci men Type: BLOOD SPECIMENOrdering Facility: [facility] Address: [address] [place] [address] Performed By: #### 5 7021-8 ####[facility] LABCLIA [id number] [place] [address] Lymphocytes (Bld) [#/Vol] 1.87 10*3/uL Normal 1.00-4.00 [facility] Comment on above: Order Comment: Speci men Type: BLOOD SPECIMENOrdering Facility: [facility] Address: [address] [place] [address] Performed By: #### 5 7021-8 ####[facility] LABCLIA [id number] [place] [address] Lymphocytes/100 WBC (Bld) 43.6 % Normal [facility] Comment on above: Order Comment: Speci men Type: BLOOD SPECIMENOrdering Facility: [facility] Address: [address] [place] [address] Performed By: #### 5 7021-8 ####[facility] LABCLIA [id number] [place] [address] MCH (RBC) [Entitic mass] 30.4 pg Normal 26.0-34.0 [facility] Comment on above: Order Comment: Speci men Type: BLOOD SPECIMENOrdering Facility: [facility] Address: [address] [place] [address] Performed By: #### 5 7021-8 ####[facility] LABCLIA [id number] [place] [address] MCHC (RBC) [Mass/Vol] 31.9 g/dL Normal 30.5-36.0 [facility] Comment on above: Order Comment: Speci men Type: BLOOD SPECIMENOrdering Facility: [facility] Address: [address] [place] [address] Performed By: #### 5 7021-8 ####[facility] LABCLIA [id number] [place] [address] MCV (RBC) [Entitic vol] 95.5 fL Normal 80.0-100.0 [facility] Comment on above: Order Comment: Speci men Type: BLOOD SPECIMENOrdering Facility: [facility] Address: [address] [place] [address] Performed By: #### 5 7021-8 ####[facility] LABCLIA [id number] [place] [address] Monocytes (Bld) [#/Vol] 0.58 10*3/uL Normal <0.87 [facility] Comment on above: Order Comment: Speci men Type: BLOOD SPECIMENOrdering Facility: [facility] Address: [address] [place] [address] Performed By: #### 5 7021-8 ####[facility] LABCLIA [id number] [place] [address] Monocytes/100 WBC (Bld) 13.5 % Normal [facility] Comment on above: Order Comment: Speci men Type: BLOOD SPECIMENOrdering Facility: [facility] Address: [address] [place] [address] Performed By: #### 5 7021-8 ####[facility] LABCLIA [id number] [place] [address] Neutrophils (Bld) [#/Vol] 1.73 10*3/uL Normal 1.45-7.50 [facility] Comment on above: Order Comment: Speci men Type: BLOOD SPECIMENOrdering Facility: [facility] Address: [address] [place] [address] Performed By: #### 5 7021-8 ####[facility] LABCLIA [id number] [place] [address] Neutrophils/100 WBC (Bld) 40.4 % Normal [facility] Comment on above: Order Comment: Speci men Type: BLOOD SPECIMENOrdering Facility: [facility] Address: [address] [place] [address] Performed By: #### 5 7021-8 ####[facility] LABCLIA [id number] [place] [address] Nucleated RBC (Bld) [#/Vol] 10*3/uL Normal <0.01 [facility] Comment on above: Order Comment: Speci men Type: BLOOD SPECIMENOrdering Facility: [facility] Address: [address] [place] [address] Performed By: #### 5 7021-8 ####[facility] LABCLIA [id number] [place] [address] Nucleated RBC/100 WBC (Bld) [Ratio] 0.0 /100 WBC Normal [facility] Comment on above: Order Comment: Speci men Type: BLOOD SPECIMENOrdering Facility: [facility] Address: [address] [place] [address] Performed By: #### 5 7021-8 ####[facility] LABCLIA [id number] [place] [address] Platelet mean volume (Bld) [Entitic vol] 9.4 fL Normal 9.0-12.7 [facility] Comment on above: Order Comment: Speci men Type: BLOOD SPECIMENOrdering Facility: [facility] Address: [address] [place] [address] Performed By: #### 5 7021-8 ####[facility] LABCLIA [id number] [place] [address] Platelets (Bld) [#/Vol] 245 10*3/uL Normal 150-400 [facility] Comment on above: Order Comment: Speci men Type: BLOOD SPECIMENOrdering Facility: [facility] Address: [address] [place] [address] Performed By: #### 5 7021-8 ####[facility] LABCLIA [id number] [place] [address] RBC (Bld) [#/Vol] 3.55 10*6/uL Low 4.20-6.00 [facility] Comment on above: Order Comment: Speci men Type: BLOOD SPECIMENOrdering Facility: [facility] Address: [address] [place] [address] Performed By: #### 5 7021-8 ####[facility] LABIA [id number] [place] [address] WBC (Bld) [#/Vol] 4.29 10*3/uL Normal 3.70-11.00 [facility] Comment on above: Order Comment: Speci men Type: BLOOD SPECIMENOrdering Facility: [facility] Address: [address] [place] [address] Performed By: #### 5 7021-8 ####[facility] LABIA [id number] [place] [address] CNOVSPon 11-20-2023 CNOVSP Normal [facility] Cancer Ag19-9 SerPl-aCncon 0 11-20-2023 Cancer Ag 19-9 Qn 328.0 [arb'U]/mL High <36.0 C [facility] Comment on above: Order Comment: Speci men Type: BLOOD SPECIMENOrdering Facility: [facility] Address: [address] [place] [address] Result Comment: [facility] er antigen 19-9 test is used as an aid in monitoring response to treatment or recurrence in patients with established pancreatic, hepatobiliary, or gastrointestinal malignancies. Clinical correlation is required.The CA 19-9 Antigen test was performed using the [employer] Unicel DXI paramagnetic particle chemiluminescent immunoassay method. Results obtained with different assay methods or kits cannot be used interchangeably. Performed By: #### 2 4108-3 ####[facility] LABCLIA [id number] [place] [id number] [place] Comprehensive metabolic 2000 panelOrdered By: Marina Bailey on 11-20-2023 Albumin [Mass/Vol] 3.8 g/dL Low 3.9 - 4.9 g/dL [facility] ALP [Catalytic activity/Vol] 132 U/L High 38 - 113 U/L [facility] ALT [Catalytic activity/Vol] 15 U/L 10 - 54 U/L [facility] Anion gap [Moles/Vol] 8 mmol/L 8 - 15 mmol/L [facility] AST [Catalytic activity/Vol] 17 U/L 14 - 40 U/L [facility] Bilirubin [Mass/Vol] 0.5 mg/dL 0.2 - 1 .3 mg/dL [facility] Calcium [Mass/Vol] 10.4 mg/dL High 8.5 - 10. 2 mg/dL [facility] Chloride [Moles/Vol] 104 mmol/L 98 - 10 7 mmol/L [facility] CO2 [Moles/Vol] 25 mmol/L 22 - 30 mmol/L [facility] Creatinine [Mass/Vol] 0.70 mg/dL Low 0.73 - 1.22 mg/dL [facility] GFR/1.73 sq M.predicted among non-blacks MDRD (S/P/Bld) [Vol rate/Area] 98 mL/min/{1.73_m2} - PINF [facility] Comment on above: Estimated Glomerular Filtration [...] not accurately reflect actual GFR. Glucose [Mass/Vol] 134 mg/dL High 74 - 99 mg/dL [facility] Comment on above: The [place] Di[employer] Association (ADA) provides guidance for [...] Standards of Medical Care in Diabetes 2016, [place] [employer]. Diabetes Care. 2016.39(Suppl 1). Interpretation and review of laboratory results Abnormal [facility] Potassium [Moles/Vol] 4.3 mmol/L 3.7 - 5.1 mmol/L [facility] Protein [Mass/Vol] 6.8 g/dL 6.3 - 8.0 g/dL [facility] Sodium [Moles/Vol] 137 mmol/L 136 - 144 mmol/L [facility] Urea nitrogen [Mass/Vol] 13 mg/dL 9 - 24 mg/dL [facility] Comprehensive metabolic 2000 panelon 11-20-2023 Albumin [Mass/Vol] 3.8 g/dL Low 3.9-4.9 [facility] Comment on above: Order Comment: Speci men Type: BLOOD SPECIMENOrdering Facility: [facility] Address: [address] [place] [address] Performed By: #### 2 4323-8 ####[facility] LABCLIA [id number] [place] [address] ALP [Catalytic activity/Vol] 132 U/L High 38-113 [facility] Comment on above: Order Comment: Speci men Type: BLOOD SPECIMENOrdering Facility: [facility] Address: [address] [place] [address] Performed By: #### 2 4323-8 ####[facility] LABCLIA [id number] [place] [address] ALT [Catalytic activity/Vol] 15 U/L Normal 10-54 [facility] Comment on above: Order Comment: Speci men Type: BLOOD SPECIMENOrdering Facility: [facility] Address: [address] [place] [address] Performed By: #### 2 4323-8 ####[facility] LABCLIA [id number] [place] [address] Anion gap [Moles/Vol] 8 mmol/L Normal 8-15 [facility] Comment on above: Order Comment: Speci men Type: BLOOD SPECIMENOrdering Facility: [facility] Address: [address] [place] [address] Performed By: #### 2 4323-8 ####[facility] LABCLIA [id number] [place] [address] AST [Catalytic activity/Vol] 17 U/L Normal 14-40 [facility] Comment on above: Order Comment: Speci men Type: BLOOD SPECIMENOrdering Facility: [facility] Address: [address] [place] [address] Performed By: #### 2 4323-8 ####[facility] LABCLIA [id number] [place] [address] Bilirubin [Mass/Vol] 0.5 mg/dL Normal 0.2-1.3 [facility] Comment on above: Order Comment: Speci men Type: BLOOD SPECIMENOrdering Facility: [facility] Address: [address] [place] [address] Performed By: #### 2 4323-8 ####[facility] LABCLIA [id number] [place] [address] Calcium [Mass/Vol] 10.4 mg/dL High 8.5-10.2 [facility] Comment on above: Order Comment: Speci men Type: BLOOD SPECIMENOrdering Facility: [facility] Address: [address] [place] [address] Performed By: #### 2 4323-8 ####[facility] LABCLIA [id number] [place] [address] Chloride [Moles/Vol] 104 mmol/L Normal 98-107 [facility] Comment on above: Order Comment: Speci men Type: BLOOD SPECIMENOrdering Facility: [facility] Address: [address] [place] [address] Performed By: #### 2 4323-8 ####[facility] LABCLIA [id number] [place] [address] CO2 [Moles/Vol] 25 mmol/L Normal 22-30 [facility] Comment on above: Order Comment: Speci men Type: BLOOD SPECIMENOrdering Facility: [facility] Address: [address] [place] [address] Performed By: #### 2 4323-8 ####[facility] LABCLIA [id number] [place] [address] Creatinine [Mass/Vol] 0.70 mg/dL Low 0.73-1.22 [facility] Comment on above: Order Comment: Speci men Type: BLOOD SPECIMENOrdering Facility: [facility] Address: [address] [place] [address] Performed By: #### 2 4323-8 ####[facility] LABCLIA [id number] [place] [address] Creatinine and Glomerular filtration rate.predicted panel (S/P/Bld) 98 mL/min/1.73m??? Normal >=60 [facility] Comment on above: Order Comment: Speci men Type: BLOOD SPECIMENOrdering Facility: [facility] Address: [address] [place] [address] Result Comment: Kathy mated Glomerular Filtration Rate [...] actual GFR. Performed By: #### 2 4323-8 ####[facility] LABCLIA [id number] [place] [address] Glucose [Mass/Vol] 134 mg/dL High 74-99 [facility] Comment on above: Order Comment: Speci men Type: BLOOD SPECIMENOrdering Facility: [facility] Address: [address] [place] [address] Result Comment: The [place] [employer] Association (ADA) provides guidance for cutoff [...] Standards of Medical Care in Diabetes 2016, [place] [employer]. Diabetes Care. 2016.39(Suppl 1). Performed By: #### 2 4323-8 ####[facility] LABCLIA [id number] [place] [address] Potassium [Moles/Vol] 4.3 mmol/L Normal 3.7-5.1 [facility] Comment on above: Order Comment: Speci men Type: BLOOD SPECIMENOrdering Facility: [facility] Address: [address] [place] [address] Performed By: #### 2 4323-8 ####[facility] LABCLIA [id number] [place] [address] Protein [Mass/Vol] 6.8 g/dL Normal 6.3-8.0 [facility] Comment on above: Order Comment: Speci men Type: BLOOD SPECIMENOrdering Facility: [facility] Address: [address] [place] [address] Performed By: #### 2 4323-8 ####[facility] LABCLIA [id number] [place] [address] Sodium [Moles/Vol] 137 mmol/L Normal 136-144 [facility] Comment on above: Order Comment: Speci men Type: BLOOD SPECIMENOrdering Facility: [facility] Address: [address] [place] [id number] Performed By: #### 2 4323-8 ####[facility] LABCLIA [id number] [place] [address] Urea nitrogen [Mass/Vol] 13 mg/dL Normal 9-24 [facility] Comment on above: Order Comment: Speci men Type: BLOOD SPECIMENOrdering Facility: [facility] Address: [address] [place] [id number] Performed By: #### 2 4323-8 ####[facility] LABCLIA [id number] [place] [address] CT Abdomen and Pelvis W cont rast Kodi 11-19-2023 Interpretation and review of laboratory results Abnormal [facility] Radiology Result ACTIONABLE Abnormal [facility] Comment on above: This report contains an incidental or actionable finding. This finding may be a new finding separate from the reason your provider ordered the imaging test or it may be an already known finding that needs additional or continued follow-up. Because of this incidental or actionable finding, you may need another test (imaging or a different type of test). Please contact your provider for the next steps. IMPRESSION: 1. New indeterminate 5.8 x 2.8 cm hypodensity in the anterior liver. Differential diagnosis includes necrotic neoplasm and hepatic abscess. Recommend further workup. 2. Multiple peritoneal nodules, mesenteric nodules and lymphadenopathy suspicious for metastases, most are stable but some have decreased in size. 3. Indeterminate subcutaneous nodule in the anterior abdominal wall concerning for metastases, stable. ACTIONABLE RESULT: FOLLOW-UP Acuity: Actionable Findings: Liver Routing Code: LV_1 Recommendation: Unlisted Recommendation (see report) Time Frame: At the discretion of the clinical team. COMMUNICATION: Results will be communicated with the ordering provider via [employer] staff message or phone message by [facility] [employer] within 2 business days of report finalization. --END OF FINDING-- Transcribe Date/Time: Nov 19 2023 2:17P Dictated by: ASHANTI REN MD This examination was interpreted and the report reviewed and electronically signed by: ASHANTI REN MD on Nov 19 2023 2:53PM EST Thank you for allowing us to participate in the care of your patient. Should there be any questions regarding this interpretation, please call [phone]. If you are unable to reach us at the number above, please feel free to contact [facility] at [phone]. DIVISION OF RADIOLOGY * * *Final Report* * * DATE OF EXAM: Nov 17 2023 11:16AM [facility] 0530 - CT ABD/PEL W IVCON / PROCEDURE REASON: Malignant neoplasm of head of pancreas (HCC) * * * * Physician Interpretation * * * * RESULT: EXAMINATION: CT ABDOMEN AND PELVIS WITH IV CONTRAST CLINICAL HISTORY: Pancreatic adenocarcinoma, status post pancreaticoduodenectomy TECHNIQUE: CT of the abdomen and pelvis was performed using standard technique, scanning from just above the dome of the diaphragm to the symphysis pubis. MQ: CTAP_3 Contrast: IV: 150 ml of Omnipaque 300 Oral: 500 ml of Omni 240 10-25ml diluted with water CT Radiation dose: Integrated Dose-length product (DLP) for this visit = 825 mGy*cm. CT Dose Reduction Employed: Automated exposure control (AEC) COMPARISON: 08/18/23 RESULT: Liver: There is a new indeterminate 5.8 x 2.3 cm hypodensity in the anterior liver (3:31) Biliary: No bile duct dilation. Gallbladder is absent. Spleen: No mass. No splenomegaly. 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 Metallic pancreatic duct stent is stable.. Adrenals: No mass. Kidneys: Renal cysts are again noted measuring up to 7 cm. A masslike lesion anterior to the right kidney (3: 63) is described in the retroperitoneal section. No evidence of enhancing renal mass or hydronephrosis. GI tract: No evidence of bowel obstruction. Lymph nodes/mesentery/peritoneu m/retroperitoneum: Multiple partially calcified mesenteric and peritoneal nodules are noted may represent a combination of metastases and lymphadenopathy. For example: * 3.3 x 2.9 cm periceliac (3:52), previously 4.1 x 3.9 cm, decreased * 3.8 x 3.5 cm left aortic (3:60), previously 3.8 x 3.6 cm, stable * 2.7 x 1.8 cm right perirenal (3:63), previously 2.9 x 2.2 cm, stable * 4.6 x 2.7 cm aortocaval (3:66), previously 4.9 x 3.4 cm, slightly smaller * 1.3 cm adjacent to the appendiceal tip (3:90), stable No evidence of ascites. Vasculature: The celiac axis and SMA are patent. The portal vein and branches, splenic vein, SMV, and hepatic veins are patent. Arterial atherosclerotic disease without aneurysm. Pelvis: Trace of ascites, stable. Fat-containing left inguinal hernia. Prostate is enlarged. Urinary bladder is decompressed. Punctate calcification in the urinary bladder (3:127) and previously related to a urinary bladder stone. Bones/Soft Tissues: No new osseous abnormalities. 1.3 cm subcutaneous nodule in the anterior abdominal wall (3:72), stable. Lower thorax: Please refer to the abdomen CT scan report for the abdomen findings. Cable Installer Repairer Helper (topogram) images: No additional findings. DIVISION OF RADIOLOGY Provider, [facility] - 11/19/2023 * * *Final Report* * * DATE OF EXAM: Nov 17 2023 11:16AM [facility] 0530 - CT ABD/PEL W IVCON / PROCEDURE REASON: Malignant neoplasm of head of pancreas (HCC) * * * * Physician Interpretation * * * * RESULT: EXAMINATION: CT ABDOMEN AND PELVIS WITH IV CONTRAST CLINICAL HISTORY: Pancreatic adenocarcinoma, status post pancreaticoduodenectomy TECHNIQUE: CT of the abdomen and pelvis was performed using standard technique, scanning from just above the dome of the diaphragm to the symphysis pubis. MQ: CTAP_3 Contrast: IV: 150 ml of Omnipaque 300 Oral: 500 ml of Omni 240 10-25ml diluted with water CT Radiation dose: Integrated Dose-length product (DLP) for this visit = 825 mGy*cm. CT Dose Reduction Employed: Automated exposure control (AEC) COMPARISON: 08/18/23 RESULT: Liver: There is a new indeterminate 5.8 x 2.3 cm hypodensity in the anterior liver (3:31) Biliary: No bile duct dilation. Gallbladder is absent. Spleen: No mass. No splenomegaly. 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 Metallic pancreatic duct stent is stable.. Adrenals: No mass. Kidneys: Renal cysts are again noted measuring up to 7 cm. A masslike lesion anterior to the right kidney (3: 63) is described in the retroperitoneal section. No evidence of enhancing renal mass or hydronephrosis. GI tract: No evidence of bowel obstruction. Lymph nodes/mesentery/peritoneu m/retroperitoneum: Multiple partially calcified mesenteric and peritoneal nodules are noted may represent a combination of metastases and lymphadenopathy. For example: * 3.3 x 2.9 cm periceliac (3:52), previously 4.1 x 3.9 cm, decreased * 3.8 x 3.5 cm left aortic (3:60), previously 3.8 x 3.6 cm, stable * 2.7 x 1.8 cm right perirenal (3:63), previously 2.9 x 2.2 cm, stable * 4.6 x 2.7 cm aortocaval (3:66), previously 4.9 x 3.4 cm, slightly smaller * 1.3 cm adjacent to the appendiceal tip (3:90), stable No evidence of ascites. Vasculature: The celiac axis and SMA are patent. The portal vein and branches, splenic vein, SMV, and hepatic veins are patent. Arterial atherosclerotic disease without aneurysm. Pelvis: Trace of ascites, stable. Fat-containing left inguinal hernia. Prostate is enlarged. Urinary bladder is decompressed. Punctate calcification in the urinary bladder (3:127) and previously related to a urinary bladder stone. Bones/Soft Tissues: No new osseous abnormalities. 1.3 cm subcutaneous nodule in the anterior abdominal wall (3:72), stable. Lower thorax: Please refer to the abdomen CT scan report for the abdomen findings. Cable Installer Repairer Helper (topogram) images: No additional findings. IMPRESSION IMPRESSION: 1. New indeterminate 5.8 x 2.8 cm hypodensity in the anterior liver. Differential diagnosis includes necrotic neoplasm and hepatic abscess. Recommend further workup. 2. Multiple peritoneal nodules, mesenteric nodules and lymphadenopathy suspicious for metastases, most are stable but some have decreased in size. 3. Indeterminate subcutaneous nodule in the anterior abdominal wall concerning for metastases, stable. ACTIONABLE RESULT: FOLLOW-UP Acuity: Actionable Findings: Liver Routing Code: LV_1 Recommendation: Unlisted Recommendation (see report) Time Frame: At the discretion of the clinical team. COMMUNICATION: Results will be communicated with the ordering provider via [employer] staff message or phone message by [facility] within 2 business days of report finalization. --END OF FINDING-- Transcribe Date/Time: Nov 19 2023 2:17P Dictated by: ASHANTI REN MD This examination was interpreted and the report reviewed and electronically signed by: ASHANTI REN MD on Nov 19 2023 2:53PM EST Thank you for allowing us to participate in the care of your patient. Should there be any questions regarding this interpretation, please call [phone]. If you are unable to reach us at the number above, please feel free to contact [facility] at [phone]. [facility] CT Chest W contrast [place]odi IMPRESSION: 1. No interval change since 08/18/23. 2. Subcentimeter nodular opacities and mild reticulonodular opacities are stable. Transcribe Date/Time: Nov 19 2023 2:10P Dictated by: ASHANTI REN MD This examination was interpreted and the report reviewed and electronically signed by: ASHANTI REN MD on Nov 19 2023 2:52PM EST Thank you for allowing us to participate in the care of your patient. Should there be any questions regarding this interpretation, please call [phone]. If you are unable to reach us at the number above, please feel free to contact [facility] at [phone]. 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 MQ: CTCW_6 Contrast: 150 mL Omnipaque [address] Radiation dose: Integrated Dose-length product (DLP) for this visit = 825 mGy*cm CT Dose Reduction Employed: Automated exposure control (AEC) Comparison: 08/18/23 RESULT: Limitations: None. Lines, tubes, and devices: Right-sided Port-A-Cath. Lung parenchyma and airways: Mild reticulonodular opacities are noted in the right lung, with an upper lung field predominance,, stable. Subcentimeter nodular opacities measuring up to 7-8 mm, stable. For example: Right lower lobe (4: 111) Left upper lobe (4: 75, 143) Left lower lobe (4: 107, 133). No new airspace opacities. The central airways are patent. Pleural space: No pleural effusion. No pleural thickening. Lower neck, lymph nodes, and mediastinum: The imaged thyroid gland is normal. Calcified mediastinal lymph nodes are identified. No evidence of enlarged noncalcified mediastinal lymph nodes. . Heart, pericardium, and thoracic vessels: The thoracic aorta and main pulmonary artery are normal in caliber. The cardiac chambers are normal in size. No coronary artery atherosclerotic calcifications are noted, although the study is not optimized for coronary assessment. No pericardial effusion or thickening. Bones and soft tissues: Bone island is noted in T8 vertebral body, stable. No new osseous abnormalities. Upper abdomen: Please refer to the abdomen CT scan report for the abdomen findings. Cable Installer Repairer Helper (topogram) images: No additional findings. 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 MQ: CTCW_6 Contrast: 150 mL Omnipaque [address] Radiation dose: Integrated Dose-length product (DLP) for this visit = 825 mGy*cm CT Dose Reduction Employed: Automated exposure control (AEC) Comparison: 08/18/23 RESULT: Limitations: None. Lines, tubes, and devices: Right-sided Port-A-Cath. Lung parenchyma and airways: Mild reticulonodular opacities are noted in the right lung, with an upper lung field predominance,, stable. Subcentimeter nodular opacities measuring up to 7-8 mm, stable. For example: Right lower lobe (4: 111) Left upper lobe (4: 75, 143) Left lower lobe (4: 107, 133). No new airspace opacities. The central airways are patent. Pleural space: No pleural effusion. No pleural thickening. Lower neck, lymph nodes, and mediastinum: The imaged thyroid gland is normal. Calcified mediastinal lymph nodes are identified. No evidence of enlarged noncalcified mediastinal lymph nodes. . Heart, pericardium, and thoracic vessels: The thoracic aorta and main pulmonary artery are normal in caliber. The cardiac chambers are normal in size. No coronary artery atherosclerotic calcifications are noted, although the study is not optimized for coronary assessment. No pericardial effusion or thickening. Bones and soft tissues: Bone island is noted in T8 vertebral body, stable. No new osseous abnormalities. Upper abdomen: Please refer to the abdomen CT scan report for the abdomen findings. Cable Installer Repairer Helper (topogram) images: No additional findings. IMPRESSION IMPRESSION: 1. No interval change since 08/18/23. 2. Subcentimeter nodular opacities and mild reticulonodular opacities are stable. Transcribe Date/Time: Nov 19 2023 2:10P Dictated by: ASHANTI REN MD This examination was interpreted and the report reviewed and electronically signed by: ASHANTI REN MD on Nov 19 2023 2:52PM EST Thank you for allowing us to participate in the care of your patient. Should there be any questions regarding this interpretation, please call [phone]. If you are unable to reach us at the number above, please feel free to contact [facility]Radiology at [phone]. [facility] CT Chest W contrast IVOrdere d By: [facility] Provider on 11-19-[address] [facility] [address] ABD/PEL W IVCONon 024 CT ABD/PEL W IVCON Invalid Interpretation Code [facility] CT CHEST W IVCONon 4 CT CHEST W IVCON Normal [facility] No Panel Informationon 11-16 Radiology Study observation (narrative) [facility] CNOVSPon 11-02-2023 CNOVSP Normal [facility] CBC W Auto Differential pane l (Bld)on 10-31-2023 Basophils (Bld) [#/Vol] 0.03 10*3/uL [facility] Basophils/100 WBC (Bld) 0.6 % [facility] Differential cell count method Nom (Bld) Auto [facility] Eosinophils (Bld) [#/Vol] 0.04 10*3/uL [facility] Eosinophils/100 WBC (Bld) 0.8 % [facility] Erythrocyte distribution width (RBC) [Ratio] 17.6 % High 11.5 - 15.0 % [facility] Hematocrit (Bld) [Volume fraction] 34.1 % Low 39.0 - 51.0 % [facility] Hemoglobin (Bld) [Mass/Vol] 10.7 g/dL Low 13.0 - 17.0 g/dL [facility] Immature granulocytes (Bld) [#/Vol] 0.03 10*3/uL [facility] Immature granulocytes/100 WBC (Bld) 0.6 % [facility] Interpretation and review of laboratory results Abnormal [facility] Lymphocytes (Bld) [#/Vol] 1.46 10*3/uL [facility] Lymphocytes/100 WBC (Bld) 30.2 % [facility] MCH (RBC) [Entitic mass] 30.2 pg 26.0 - 34.0 pg [facility] MCHC (RBC) [Mass/Vol] 31.4 g/dL 30.5 - 36.0 g/dL [facility] MCV (RBC) [Entitic vol] 96.3 fL 80.0 - 100.0 fL [facility] Monocytes (Bld) [#/Vol] 0.61 10*3/uL [facility] Monocytes/100 WBC (Bld) 12.6 % [facility] Neutrophils (Bld) [#/Vol] 2.66 10*3/uL [facility] Neutrophils/100 WBC (Bld) 55.2 % [facility] Nucleated RBC (Bld) [#/Vol] [facility] Nucleated RBC/100 WBC (Bld) [Ratio] 0.0 % /100 WBC [facility] Platelet mean volume (Bld) [Entitic vol] 9.2 fL 9.0 - 12.7 fL [facility] Platelets (Bld) [#/Vol] 296 10*3/uL [facility] RBC (Bld) [#/Vol] 3.54 10*6/uL Low 4.20 - 6.0 0 m/uL [facility] WBC (Bld) [#/Vol] 4.83 10*3/uL [facility] Basophils (Bld) [#/Vol] 0.03 10*3/uL Normal <0.11 [facility] Comment on above: Order Comment: Speci men Type: BLOOD SPECIMENOrdering Facility: [facility] Address: [address] [place] [address] Performed By: #### 5 7021-8 ####[facility] LABCLIA [id number] [place] [address] Basophils/100 WBC (Bld) 0.6 % Normal [facility] Comment on above: Order Comment: Speci men Type: BLOOD SPECIMENOrdering Facility: [facility] Address: [address] [place] [address] Performed By: #### 5 7021-8 ####[facility] LABCLIA [id number] [place] [address] Differential cell count method Nom (Bld) Auto Normal [facility] Comment on above: Order Comment: Speci men Type: BLOOD SPECIMENOrdering Facility: [facility] Address: [address] [place] [address] Performed By: #### 5 7021-8 ####[facility] LABCLIA [id number] [place] [address] Eosinophils (Bld) [#/Vol] 0.04 10*3/uL Normal <0.46 [facility] Comment on above: Order Comment: Speci men Type: BLOOD SPECIMENOrdering Facility: [facility] Address: [address] [place] [address] Performed By: #### 5 7021-8 ####[facility] LABCLIA [id number] [place] [address] Eosinophils/100 WBC (Bld) 0.8 % Normal [facility] Comment on above: Order Comment: Speci men Type: BLOOD SPECIMENOrdering Facility: [facility] Address: [address] [place] [address] Performed By: #### 5 7021-8 ####[facility] LABCLIA [id number] [place] [address] Erythrocyte distribution width (RBC) [Ratio] 17.6 % High 11.5-15.0 [facility] Comment on above: Order Comment: Speci men Type: BLOOD SPECIMENOrdering Facility: [facility] Address: [address] [place] [address] Performed By: #### 5 7021-8 ####[facility] LABCLIA [id number] [place] [address] Hematocrit (Bld) [Volume fraction] 34.1 % Low 39.0-51.0 [facility] Comment on above: Order Comment: Speci men Type: BLOOD SPECIMENOrdering Facility: [facility] Address: [address] [place] [address] Performed By: #### 5 7021-8 ####[facility] LABCLIA [id number] [place] [address] Hemoglobin (Bld) [Mass/Vol] 10.7 g/dL Low 13.0-17.0 [facility] Comment on above: Order Comment: Speci men Type: BLOOD SPECIMENOrdering Facility: [facility] Address: [address] [place] [address] Performed By: #### 5 7021-8 ####[facility] LABCLIA [id number] [place] [address] Immature granulocytes (Bld) [#/Vol] 0.03 10*3/uL Normal <0.10 [facility] Comment on above: Order Comment: Speci men Type: BLOOD SPECIMENOrdering Facility: [facility] Address: [address] [place] [address] Performed By: #### 5 7021-8 ####[facility] LABCLIA [id number] [place] [address] Immature granulocytes/100 WBC (Bld) 0.6 % Normal [facility] Comment on above: Order Comment: Speci men Type: BLOOD SPECIMENOrdering Facility: [facility] Address: [address] [place] [address] Performed By: #### 5 7021-8 ####[facility] LABCLIA [id number] [place] [address] Lymphocytes (Bld) [#/Vol] 1.46 10*3/uL Normal 1.00-4.00 [facility] Comment on above: Order Comment: Speci men Type: BLOOD SPECIMENOrdering Facility: [facility] Address: [address] [place] [address] Performed By: #### 5 7021-8 ####[facility] LABCLIA [id number] [place] [address] Lymphocytes/100 WBC (Bld) 30.2 % Normal [facility] Comment on above: Order Comment: Speci men Type: BLOOD SPECIMENOrdering Facility: [facility] Address: [address] [place] [address] Performed By: #### 5 7021-8 ####[facility] LABIA [id number] [place] [address] MCH (RBC) [Entitic mass] 30.2 pg Normal 26.0-34.0 [facility] Comment on above: Order Comment: Speci men Type: BLOOD SPECIMENOrdering Facility: [facility] Address: [address] [place] [address] Performed By: #### 5 7021-8 ####[facility] LABCLIA [id number] [place] [address] MCHC (RBC) [Mass/Vol] 31.4 g/dL Normal 30.5-36.0 [facility] Comment on above: Order Comment: Speci men Type: BLOOD SPECIMENOrdering Facility: [facility] Address: [address] [place] [address] Performed By: #### 5 7021-8 ####[facility] LABIA [id number] [place] [address] MCV (RBC) [Entitic vol] 96.3 fL Normal 80.0-100.0 [facility] Comment on above: Order Comment: Speci men Type: BLOOD SPECIMENOrdering Facility: [facility] Address: [address] [place] [address] Performed By: #### 5 7021-8 ####[facility] LABCLIA [id number] [place] [address] Monocytes (Bld) [#/Vol] 0.61 10*3/uL Normal <0.87 [facility] Comment on above: Order Comment: Speci men Type: BLOOD SPECIMENOrdering Facility: [facility] Address: [address] [place] [address] Performed By: #### 5 7021-8 ####[facility] LABCLIA [id number] [place] [address] Monocytes/100 WBC (Bld) 12.6 % Normal [facility] Comment on above: Order Comment: Speci men Type: BLOOD SPECIMENOrdering Facility: [facility] Address: [address] [place] [address] Performed By: #### 5 7021-8 ####[facility] LABCLIA [id number] [place] [address] Neutrophils (Bld) [#/Vol] 2.66 10*3/uL Normal 1.45-7.50 [facility] Comment on above: Order Comment: Speci men Type: BLOOD SPECIMENOrdering Facility: [facility] Address: [address] [place] [address] Performed By: #### 5 7021-8 ####[facility] LABCLIA [id number] [place] [address] Neutrophils/100 WBC (Bld) 55.2 % Normal [facility] Comment on above: Order Comment: Speci men Type: BLOOD SPECIMENOrdering Facility: [facility] Address: [address] [place] [address] Performed By: #### 5 7021-8 ####[facility] LABCLIA [id number] [place] [address] Nucleated RBC (Bld) [#/Vol] 10*3/uL Normal <0.01 [facility] Comment on above: Order Comment: Speci men Type: BLOOD SPECIMENOrdering Facility: [facility] Address: [address] [place] [address] Performed By: #### 5 7021-8 ####[facility] LABCLIA [id number] [place] [address] Nucleated RBC/100 WBC (Bld) [Ratio] 0.0 /100 WBC Normal [facility] Comment on above: Order Comment: Speci men Type: BLOOD SPECIMENOrdering Facility: [facility] Address: [address] [place] [address] Performed By: #### 5 7021-8 ####[facility] LABCLIA [id number] [place] [address] Platelet mean volume (Bld) [Entitic vol] 9.2 fL Normal 9.0-12.7 [facility] Comment on above: Order Comment: Speci men Type: BLOOD SPECIMENOrdering Facility: [facility] Address: [address] [place] [address] Performed By: #### 5 7021-8 ####[facility] LABCLIA [id number] [place] [address] Platelets (Bld) [#/Vol] 296 10*3/uL Normal 150-400 [facility] Comment on above: Order Comment: Speci men Type: BLOOD SPECIMENOrdering Facility: [facility] Address: [address] [place] [address] Performed By: #### 5 7021-8 ####[facility] LABCLIA [id number] [place] [address] RBC (Bld) [#/Vol] 3.54 10*6/uL Low 4.20-6.00 [facility] Comment on above: Order Comment: Speci men Type: BLOOD SPECIMENOrdering Facility: [facility] Address: [address] [place] [address] Performed By: #### 5 7021-8 ####[facility] LABCLIA [id number] [place] [address] WBC (Bld) [#/Vol] 4.83 10*3/uL Normal 3.70-11.00 [facility] Comment on above: Order Comment: Speci men Type: BLOOD SPECIMENOrdering Facility: [facility] Address: [address] [place] [address] Performed By: #### 5 7021-8 ####[facility] LABCLIA [id number] [place] [address] CNOVSPon 10-31-2023 CNOVSP Normal [facility] Cancer Ag19-9 SerPl-aCncon 0 10-31-2023 Cancer Ag 19-9 Qn 606.0 [arb'U]/mL High <36.0 [facility] Comment on above: Order Comment: Speci men Type: BLOOD SPECIMENOrdering Facility: [facility] Address: [address] [place] [address] Result Comment: [facility] er antigen 19-9 test is used as an aid in monitoring response to treatment or recurrence in patients with established pancreatic, hepatobiliary, or gastrointestinal malignancies. Clinical correlation is required.The CA 19-9 Antigen test was performed using the [employer] Unicel DXI paramagnetic particle chemiluminescent immunoassay method. Results obtained with different assay methods or kits cannot be used interchangeably. Performed By: #### 2 4108-3 ####[facility] LABCLIA [id number] [place] [id number] [facility] Comprehensive metabolic 2000 panelOrdered By: Elizabeth Yu on 10-31-2023 Albumin [Mass/Vol] 3.7 g/dL Low 3.9 - 4.9 g/dL [facility] ALP [Catalytic activity/Vol] 169 U/L High 38 - 113 U/L [facility] ALT [Catalytic activity/Vol] 31 U/L 10 - 54 U/L [facility] Anion gap [Moles/Vol] 8 mmol/L 8 - 15 mmol/L [facility] AST [Catalytic activity/Vol] 23 U/L 14 - 40 U/L [facility] Bilirubin [Mass/Vol] 0.5 mg/dL 0.2 - 1 .3 mg/dL [facility] Calcium [Mass/Vol] 10.7 mg/dL High 8.5 - 10. 2 mg/dL [facility] Chloride [Moles/Vol] 101 mmol/L 98 - 10 7 mmol/L [facility] CO2 [Moles/Vol] 27 mmol/L 22 - 30 mmol/L [facility] Creatinine [Mass/Vol] 0.73 mg/dL 0.73 - 1.22 mg/dL [facility] GFR/1.73 sq M.predicted among non-blacks MDRD (S/P/Bld) [Vol rate/Area] 97 mL/min/{1.73_m2} - PINF [facility] Comment on above: Estimated Glomerular Filtration [...] not accurately reflect actual GFR. Glucose [Mass/Vol] 141 mg/dL High 74 - 99 mg/dL [facility] Comment on above: The [place] [employer] (ADA) provides guidance for [...] Standards of Medical Care in Diabetes 2016, [place] [employer]. Diabetes Care. 2016.39(Suppl 1). Interpretation and review of laboratory results Abnormal [facility] Potassium [Moles/Vol] 4.5 mmol/L 3.7 - 5.1 mmol/L [facility] Protein [Mass/Vol] 7.5 g/dL 6.3 - 8.0 g/dL [facility] Sodium [Moles/Vol] 136 mmol/L 136 - 144 mmol/L [facility] Urea nitrogen [Mass/Vol] 13 mg/dL 9 - 24 mg/dL [facility] Comprehensive metabolic 2000 panelon 10-31-2023 Albumin [Mass/Vol] 3.7 g/dL Low 3.9-4.9 [facility] Comment on above: Order Comment: Speci men Type: BLOOD SPECIMENOrdering Facility: [facility] Address: [address] [place] [address] Performed By: #### 2 4323-8 ####[facility] LABCLIA [id number] [place] [address] ALP [Catalytic activity/Vol] 169 U/L High 38-113 [facility] Comment on above: Order Comment: Speci men Type: BLOOD SPECIMENOrdering Facility: [facility] Address: [address] [place] [address] Performed By: #### 2 4323-8 ####[facility] LABCLIA [id number] [place] [address] ALT [Catalytic activity/Vol] 31 U/L Normal 10-54 [facility] Comment on above: Order Comment: Speci men Type: BLOOD SPECIMENOrdering Facility: [facility] Address: [address] [place] [address] Performed By: #### 2 4323-8 ####[facility] LABCLIA [id number] [place] [address] Anion gap [Moles/Vol] 8 mmol/L Normal 8-15 [facility] Comment on above: Order Comment: Speci men Type: BLOOD SPECIMENOrdering Facility: [facility] Address: [address] [place] [address] Performed By: #### 2 4323-8 ####[facility] LABCLIA [id number] [place] [address] AST [Catalytic activity/Vol] 23 U/L Normal 14-40 [facility] Comment on above: Order Comment: Speci men Type: BLOOD SPECIMENOrdering Facility: [facility] Address: [address] [place] [address] Performed By: #### 2 4323-8 ####[facility] LABCLIA [id number] [place] [address] Bilirubin [Mass/Vol] 0.5 mg/dL Normal 0.2-1.3 [facility] Comment on above: Order Comment: Speci men Type: BLOOD SPECIMENOrdering Facility: [facility] Address: [address] [place] [address] Performed By: #### 2 4323-8 ####[facility] LABCLIA [id number] [place] [address] Calcium [Mass/Vol] 10.7 mg/dL High 8.5-10.2 [facility] Comment on above: Order Comment: Speci men Type: BLOOD SPECIMENOrdering Facility: [facility] Address: [address] [place] [address] Performed By: #### 2 4323-8 ####[facility] LABCLIA [id number] [place] [address] Chloride [Moles/Vol] 101 mmol/L Normal 98-107 [facility] Comment on above: Order Comment: Speci men Type: BLOOD SPECIMENOrdering Facility: [facility] Address: [address] [place] [address] Performed By: #### 2 4323-8 ####[facility] LABCLIA [id number] [place] [address] CO2 [Moles/Vol] 27 mmol/L Normal 22-30 [facility] Comment on above: Order Comment: Speci men Type: BLOOD SPECIMENOrdering Facility: [facility] Address: [address] [place] [address] Performed By: #### 2 4323-8 ####[facility] LABCLIA [id number] [place] [address] Creatinine [Mass/Vol] 0.73 mg/dL Normal 0.73-1.22 [facility] Comment on above: Order Comment: Noemí hoff Type: BLOOD SPECIMENOrdering Facility: [facility] Address: [address] [place], [place] [id number] Performed By: #### 2 4323-8 ####[facility] LABCLIA [id number] [place] [address] Creatinine and Glomerular filtration rate.predicted panel (S/P/Bld) 97 mL/min/1.73m??? Normal >=60 [facility] Comment on above: Order Comment: Noemí hoff Type: BLOOD SPECIMENOrdering Facility: [facility] Address: [address] [place] [address] Result Comment: Kathy mated Glomerular Filtration Rate [...] actual GFR. Performed By: #### 2 4323-8 ####[facility] LABCLIA [id number] [place] [address] Glucose [Mass/Vol] 141 mg/dL High 74-99 [facility] Comment on above: Order Comment: Noemí hoff Type: BLOOD SPECIMENOrdering Facility: [facility] Address: [address] [place], [place] [id number] Result Comment: The [place] Diabetes Association (ADA) provides guidance for cutoff [...] Standards of Medical Care in Diabetes 2016, [place] [employer]. Diabetes Care. 2016.39(Suppl 1). Performed By: #### 2 4323-8 ####[facility] LABCLIA [id number] [place] [address] Potassium [Moles/Vol] 4.5 mmol/L Normal 3.7-5.1 [facility] Comment on above: Order Comment: Speci men Type: BLOOD SPECIMENOrdering Facility: [facility] Address: [address] [place] [address] Performed By: #### 2 4323-8 ####[facility] LABCLIA [id number] [place] [address] Protein [Mass/Vol] 7.5 g/dL Normal 6.3-8.0 [facility] Comment on above: Order Comment: Speci men Type: BLOOD SPECIMENOrdering Facility: [facility] Address: [address] [place] [address] Performed By: #### 2 4323-8 ####[facility] LABCLIA [id number] [place] [address] Sodium [Moles/Vol] 136 mmol/L Normal 136-144 [facility] Comment on above: Order Comment: Speci men Type: BLOOD SPECIMENOrdering Facility: [facility] Address: [address] [place] [address] Performed By: #### 2 4323-8 ####[facility] LABCLIA [id number] [place] [address] Urea nitrogen [Mass/Vol] 13 mg/dL Normal 9-24 [facility] Comment on above: Order Comment: Speci men Type: BLOOD SPECIMENOrdering Facility: [facility] Address: [address] [place] [id number] Performed By: #### 2 4323-8 ####[facility] LABCLIA [id number] [place] [address] [facility] 10-17-2023 CNPN Normal [facility] CNPNon 10-13-2023 CNPN Normal [facility] CBC W Auto Differential pane l (Bld)on 10-11-2023 Basophils (Bld) [#/Vol] 0.04 10*3/uL [facility] Basophils/100 WBC (Bld) 0.4 % [facility] Differential cell count method Nom (Bld) Auto [facility] Eosinophils (Bld) [#/Vol] [facility] Eosinophils/100 WBC (Bld) 0.2 % [facility] Erythrocyte distribution width (RBC) [Ratio] 15.2 % High 11.5 - 15.0 % [facility] Hematocrit (Bld) [Volume fraction] 29.5 % Low 39.0 - 51.0 % [facility] Hemoglobin (Bld) [Mass/Vol] 9.6 g/dL Low 13.0 - 17.0 g/dL [facility] Immature granulocytes (Bld) [#/Vol] 0.12 10*3/uL High [facility] Immature granulocytes/100 WBC (Bld) 1.2 % [facility] Interpretation and review of laboratory results Abnormal [facility] Lymphocytes (Bld) [#/Vol] 1.53 10*3/uL [facility] Lymphocytes/100 WBC (Bld) 15.3 % [facility] MCH (RBC) [Entitic mass] 30.2 pg 26.0 - 34.0 pg [facility] MCHC (RBC) [Mass/Vol] 32.5 g/dL 30.5 - 36.0 g/dL [facility] MCV (RBC) [Entitic vol] 92.8 fL 80.0 - 100.0 fL [facility] Monocytes (Bld) [#/Vol] 0.77 10*3/uL [facility] Monocytes/100 WBC (Bld) 7.7 % [facility] Neutrophils (Bld) [#/Vol] 7.54 10*3/uL High [facility] Neutrophils/100 WBC (Bld) 75.2 % [facility] Nucleated RBC (Bld) [#/Vol] [facility] Nucleated RBC/100 WBC (Bld) [Ratio] 0.0 % /100 WBC [facility] Platelet mean volume (Bld) [Entitic vol] 10.0 fL 9.0 - 12.7 fL [facility] Platelets (Bld) [#/Vol] 196 10*3/uL [facility] RBC (Bld) [#/Vol] 3.18 10*6/uL Low 4.20 - 6.0 0 m/uL [facility] WBC (Bld) [#/Vol] 10.02 10*3/uL [facility] Basophils (Bld) [#/Vol] 0.04 10*3/uL Normal <0.11 [facility] Comment on above: Order Comment: Speci men Type: BLOOD SPECIMENOrdering Facility: [facility] Address: [address] [place] [address] Performed By: #### 5 7021-8 ####[facility] LABCLIA [id number] [place] [address] Basophils/100 WBC (Bld) 0.4 % Normal [facility] Comment on above: Order Comment: Speci men Type: BLOOD SPECIMENOrdering Facility: [facility] Address: [address] [place] [address] Performed By: #### 5 7021-8 ####[facility] LABCLIA [id number] [place] [address] Differential cell count method Nom (Bld) Auto Normal [facility] Comment on above: Order Comment: Speci men Type: BLOOD SPECIMENOrdering Facility: [facility] Address: [address] [place] [address] Performed By: #### 5 7021-8 ####[facility] LABCLIA [id number] [place] [address] Eosinophils (Bld) [#/Vol] 10*3/uL Normal <0.46 [facility] Comment on above: Order Comment: Speci men Type: BLOOD SPECIMENOrdering Facility: [facility] Address: [address] [place] [address] Performed By: #### 5 7021-8 ####[facility] LABCLIA [id number] [place] [address] Eosinophils/100 WBC (Bld) 0.2 % Normal [facility] Comment on above: Order Comment: Speci men Type: BLOOD SPECIMENOrdering Facility: [facility] Address: [address] [place] [address] Performed By: #### 5 7021-8 ####[facility] LABCLIA [id number] [place] [address] Erythrocyte distribution width (RBC) [Ratio] 15.2 % High 11.5-15.0 [facility] Comment on above: Order Comment: Speci men Type: BLOOD SPECIMENOrdering Facility: [facility] Address: [address] [place] [address] Performed By: #### 5 7021-8 ####[facility] LABIA [id number] [place] [address] Hematocrit (Bld) [Volume fraction] 29.5 % Low 39.0-51.0 [facility] Comment on above: Order Comment: Speci men Type: BLOOD SPECIMENOrdering Facility: [facility] Address: [address] [place] [address] Performed By: #### 5 7021-8 ####[facility] LABIA [id number] [place] [address] Hemoglobin (Bld) [Mass/Vol] 9.6 g/dL Low 13.0-17.0 [facility] Comment on above: Order Comment: Speci men Type: BLOOD SPECIMENOrdering Facility: [facility] Address: [address] [place] [address] Performed By: #### 5 7021-8 ####[facility] LABIA [id number] [place] [address] Immature granulocytes (Bld) [#/Vol] 0.12 10*3/uL High <0.10 [facility] Comment on above: Order Comment: Speci men Type: BLOOD SPECIMENOrdering Facility: [facility] Address: [address] [place] [address] Performed By: #### 5 7021-8 ####[facility] LABCLIA [id number] [place] [address] Immature granulocytes/100 WBC (Bld) 1.2 % Normal [facility] Comment on above: Order Comment: Speci men Type: BLOOD SPECIMENOrdering Facility: [facility] Address: [address] [place] [address] Performed By: #### 5 7021-8 ####[facility] LABCLIA [id number] [place] [address] Lymphocytes (Bld) [#/Vol] 1.53 10*3/uL Normal 1.00-4.00 [facility] Comment on above: Order Comment: Speci men Type: BLOOD SPECIMENOrdering Facility: [facility] Address: [address] [place] [address] Performed By: #### 5 7021-8 ####[facility] LABCLIA [id number] [place] [address] Lymphocytes/100 WBC (Bld) 15.3 % Normal [facility] Comment on above: Order Comment: Speci men Type: BLOOD SPECIMENOrdering Facility: [facility] Address: [address] [place] [address] Performed By: #### 5 7021-8 ####[facility] LABCLIA [id number] [place] [address] MCH (RBC) [Entitic mass] 30.2 pg Normal 26.0-34.0 [facility] Comment on above: Order Comment: Speci men Type: BLOOD SPECIMENOrdering Facility: [facility] Address: [address] [place] [address] Performed By: #### 5 7021-8 ####[facility] LABCLIA [id number] [place] [address] MCHC (RBC) [Mass/Vol] 32.5 g/dL Normal 30.5-36.0 [facility] Comment on above: Order Comment: Speci men Type: BLOOD SPECIMENOrdering Facility: [facility] Address: [address] [place] [address] Performed By: #### 5 7021-8 ####[facility] LABCLIA [id number] [place] [address] MCV (RBC) [Entitic vol] 92.8 fL Normal 80.0-100.0 [facility] Comment on above: Order Comment: Speci men Type: BLOOD SPECIMENOrdering Facility: [facility] Address: [address] [place] [address] Performed By: #### 5 7021-8 ####[facility] LABCLIA [id number] [place] [address] Monocytes (Bld) [#/Vol] 0.77 10*3/uL Normal <0.87 [facility] Comment on above: Order Comment: Speci men Type: BLOOD SPECIMENOrdering Facility: [facility] Address: [address] [place] [address] Performed By: #### 5 7021-8 ####[facility] LABCLIA [id number] [place] [address] Monocytes/100 WBC (Bld) 7.7 % Normal [facility] Comment on above: Order Comment: Speci men Type: BLOOD SPECIMENOrdering Facility: [facility] Address: [address] [place] [address] Performed By: #### 5 7021-8 ####[facility] LABCLIA [id number] [place] [address] Neutrophils (Bld) [#/Vol] 7.54 10*3/uL High 1.45-7.50 [facility] Comment on above: Order Comment: Speci men Type: BLOOD SPECIMENOrdering Facility: [facility] Address: [address] [place] [address] Performed By: #### 5 7021-8 ####[facility] LABCLIA [id number] [place] [address] Neutrophils/100 WBC (Bld) 75.2 % Normal [facility] Comment on above: Order Comment: Speci men Type: BLOOD SPECIMENOrdering Facility: [facility] Address: [address] [place] [address] Performed By: #### 5 7021-8 ####[facility] LABCLIA [id number] [place] [address] Nucleated RBC (Bld) [#/Vol] 10*3/uL Normal <0.01 [facility] Comment on above: Order Comment: Speci men Type: BLOOD SPECIMENOrdering Facility: [facility] Address: [address] [place] [address] Performed By: #### 5 7021-8 ####[facility] LABCLIA [id number] [place] [address] Nucleated RBC/100 WBC (Bld) [Ratio] 0.0 /100 WBC Normal [facility] Comment on above: Order Comment: Speci men Type: BLOOD SPECIMENOrdering Facility: [facility] Address: [address] [place] [address] Performed By: #### 5 7021-8 ####[facility] LABCLIA [id number] [place] [address] Platelet mean volume (Bld) [Entitic vol] 10.0 fL Normal 9.0-12.7 [facility] Comment on above: Order Comment: Speci men Type: BLOOD SPECIMENOrdering Facility: [facility] Address: [address] [place] [address] Performed By: #### 5 7021-8 ####[facility] LABCLIA [id number] [place] [address] Platelets (Bld) [#/Vol] 196 10*3/uL Normal 150-400 [facility] Comment on above: Order Comment: Speci men Type: BLOOD SPECIMENOrdering Facility: [facility] Address: [address] [place] [address] [place], [place] [address] Performed By: #### 5 7021-8 ####[facility] LABIA [id number] [place] [address] RBC (Bld) [#/Vol] 3.18 10*6/uL Low 4.20-6.00 [facility] Comment on above: Order Comment: Speci men Type: BLOOD SPECIMENOrdering Facility: [facility] Address: [address] [place] [address] [place], [place] [address] Performed By: #### 5 7021-8 ####[facility] LABIA [id number] [place] [address] WBC (Bld) [#/Vol] 10.02 10*3/uL Normal 3.70-11.00 [facility] Comment on above: Order Comment: Speci men Type: BLOOD SPECIMENOrdering Facility: [facility] Address: [address] [place] [address] Performed By: #### 5 7021-8 ####[facility] LABIA [id number] [place] [address] CNNURSEon 10-11-2023 CNNURSE Normal [facility] CNOVSPon 10-11-2023 CNOVSP Normal [facility] Comprehensive metabolic 2000 panelon 10-11-2023 Albumin [Mass/Vol] 2.9 g/dL Low 3.9 - 4.9 g/dL [facility] ALP [Catalytic activity/Vol] 111 U/L 38 - 113 U/L [facility] Comment on above: Results may be false ly decreased due to interference from hemolysis. Suggest reorder as clinically indicated. ALT [Catalytic activity/Vol] 18 U/L 10 - 54 U/L [facility] Comment on above: Results may be false ly increased due to interference from hemolysis. Suggest reorder as clinically indicated. Anion gap [Moles/Vol] 9 mmol/L 9 - 18 mmol/L [facility] AST [Catalytic activity/Vol] 52 U/L High 14 - 40 U/L [facility] Comment on above: Results may be false ly increased due to interference from hemolysis. Suggest reorder as clinically indicated. Bilirubin [Mass/Vol] 0.5 mg/dL 0.2 - 1 .3 mg/dL [facility] Calcium [Mass/Vol] 9.7 mg/dL 8.5 - 10. 2 mg/dL [facility] Chloride [Moles/Vol] 96 mmol/L Low 97 - 10 5 mmol/L [facility] CO2 [Moles/Vol] 23 mmol/L 22 - 30 mmol/L [facility] Creatinine [Mass/Vol] 0.71 mg/dL Low 0.73 - 1.22 mg/dL [facility] GFR/1.73 sq M.predicted among non-blacks MDRD (S/P/Bld) [Vol rate/Area] 97 mL/min/{1.73_m2} - PINF [facility] Comment on above: Estimated Glomerular Filtration [...] 158 mg/dL High 74 - 99 mg/dL [facility] Comment on above: The [place] [employer] (ADA) provides guidance for [...] Standards of Medical Care in Diabetes 2016, [place] [employer]. Diabetes Care. 2016.39(Suppl 1). Interpretation and review of laboratory results Abnormal [facility] Potassium [Moles/Vol] [facility] Comment on above: Unable to assay due to interference from hemolysis. Suggest reorder as clinically indicated. Protein [Mass/Vol] 7.0 g/dL 6.3 - 8.0 g/dL [facility] Sodium [Moles/Vol] 128 mmol/L Low 136 - 144 mmol/L [facility] Urea nitrogen [Mass/Vol] 14 mg/dL 9 - 24 mg/dL [facility] Albumin [Mass/Vol] 2.9 g/dL Low 3.9-4.9 [facility] Comment on above: Order Comment: Speci men Type: BLOOD SPECIMENOrdering Facility: [facility] Address: [address] [place] [address] Performed By: #### 2 4323-8 ####[facility] [id number] [place] [address] [place] ALP [Catalytic activity/Vol] 111 U/L Normal 38-113 [facility] Comment on above: Order Comment: Speci men Type: BLOOD SPECIMENOrdering Facility: [facility] Address: [address] [place] [address] Result Comment: Resu lts may be falsely decreased due to interference from hemolysis. Suggest reorder as clinically indicated. Performed By: #### 2 4323-8 ####[facility] [id number] [place] [address] [place] ALT [Catalytic activity/Vol] 18 U/L Normal 10-54 [facility] Comment on above: Order Comment: Speci men Type: BLOOD SPECIMENOrdering Facility: [facility] Address: [address] [place] [address] Result Comment: Resu lts may be falsely increased due to interference from hemolysis. Suggest reorder as clinically indicated. Performed By: #### 2 4323-8 ####[facility] [id number] [place] [address] [place] Anion gap [Moles/Vol] 9 mmol/L Normal 9-18 [facility] Comment on above: Order Comment: Speci men Type: BLOOD SPECIMENOrdering Facility: [facility] Address: [address] [place] [address] Performed By: #### 2 4323-8 ####[facility] LABCLIA [id number] [place] [address] [place] AST [Catalytic activity/Vol] 52 U/L High 14-40 [facility] Comment on above: Order Comment: Speci men Type: BLOOD SPECIMENOrdering Facility: [facility] Address: [address] [place] [address] Result Comment: Resu lts may be falsely increased due to interference from hemolysis. Suggest reorder as clinically indicated. Performed By: #### 2 4323-8 ####[facility] LABCLIA [id number] [place] [address] [place] Bilirubin [Mass/Vol] 0.5 mg/dL Normal 0.2-1.3 [facility] Comment on above: Order Comment: Speci men Type: BLOOD SPECIMENOrdering Facility: [facility] Address: [address] [place] [address] Performed By: #### 2 4323-8 ####[facility] LABIA [id number] [place] [address] [place] Calcium [Mass/Vol] 9.7 mg/dL Normal 8.5-10.2 [facility] Comment on above: Order Comment: Speci men Type: BLOOD SPECIMENOrdering Facility: [facility] Address: [address] [place] [address] Performed By: #### 2 4323-8 ####[facility] LABCLIA [id number] [place] [address] [place] Chloride [Moles/Vol] 96 mmol/L Low 97-105 [facility] Comment on above: Order Comment: Speci men Type: BLOOD SPECIMENOrdering Facility: [facility] Address: [address] [place] [address] Performed By: #### 2 4323-8 ####[facility] LABCLIA [id number] [place] [address] [place] CO2 [Moles/Vol] 23 mmol/L Normal 22-30 [facility] Comment on above: Order Comment: Speci men Type: BLOOD SPECIMENOrdering Facility: [facility] Address: [address] [place] [address] Performed By: #### 2 4323-8 ####[facility] LABCLIA [id number] [place] [address] [place] Creatinine [Mass/Vol] 0.71 mg/dL Low 0.73-1.22 [facility] Comment on above: Order Comment: Speci men Type: BLOOD SPECIMENOrdering Facility: [facility] Address: [address] [place] [address] Performed By: #### 2 4323-8 ####[facility] LABIA [id number] [address] STATES OF [facility] Creatinine and Glomerular filtration rate.predicted panel (S/P/Bld) 97 mL/min/1.73m??? Normal >=60 [facility] Comment on above: Order Comment: Speci men Type: BLOOD SPECIMENOrdering Facility: [facility] Address: [address] [place] [address] Result Comment: Kathy mated Glomerular Filtration Rate [...] actual GFR. Performed By: #### 2 4323-8 ####[facility] LABCLIA [id number] [place] [address] [place] Glucose [Mass/Vol] 158 mg/dL High 74-99 [facility] Comment on above: Order Comment: Speci men Type: BLOOD SPECIMENOrdering Facility: [facility] Address: [address] [place] [address] Result Comment: The [place] Diabetes Association (ADA) provides guidance for cutoff [...] Standards of Medical Care in Diabetes 2016, [place] [employer]. Diabetes Care. 2016.39(Suppl 1). Performed By: #### 2 4323-8 ####[facility] LABCLIA [id number] [place] [address] [place] Potassium [Moles/Vol] Normal [facility] Comment on above: Order Comment: Speci men Type: BLOOD SPECIMENOrdering Facility: [facility] Address: [address] [place] [address] Result Comment: Unab le to assay due to interference from hemolysis. Suggest reorder as clinically indicated. Performed By: #### 2 4323-8 ####[facility] LABCLIA [id number] [place] [address] [place] Protein [Mass/Vol] 7.0 g/dL Normal 6.3-8.0 [facility] Comment on above: Order Comment: Speci men Type: BLOOD SPECIMENOrdering Facility: [facility] Address: [address] [place] [address] Performed By: #### 2 4323-8 ####[facility] LABCLIA [id number] [place] [address] [place] Sodium [Moles/Vol] 128 mmol/L Low 136-144 [facility] Comment on above: Order Comment: Speci men Type: BLOOD SPECIMENOrdering Facility: [facility] Address: [address] [place] [address] Performed By: #### 2 4323-8 ####[facility] LABCLIA [id number] [place] [address] [place] Urea nitrogen [Mass/Vol] 14 mg/dL Normal 9-24 [facility] Comment on above: Order Comment: Speci men Type: BLOOD SPECIMENOrdering Facility: [facility] Address: [address] [place] [address] Performed By: #### 2 4323-8 ####[facility] LABCLIA [id number] [place] [address] [place] UA DIP, URINE (POC)on 2023 BILIRUBIN UA (POCT) Negative Negative [facility] CLARITY UA (POCT) Slightly Cloudy Cl [facility] COLOR UA (POCT) Yellow [facility] GLUCOSE UA (POCT) Negative Negative mg/dL [facility] Hemoglobin Ql (U) Negative Negative [facility] Interpretation and review of laboratory results Abnormal [facility] KETONE UA (POCT) Negative Negative mg/dL [facility] LEUKOCYTES UA (POCT) Trace Abnormal Negative [facility] NITRITE UA (POCT) Negative Negative [facility] PH UA (POCT) 6.5 4.5 - 8.0 [facility] Protein Ql (U) Negative Negative mg/dL [facility] SPECIFIC GRAVITY UA (POCT) 1.015 1.005 - 1.030 [facility] UROBILINOGEN UA (POCT) 0.2 Normal E.U./dL [facility] Location:[facility], [address] [place] [address] , [place], [place], [id number] [place] [address] POINT OF CARE [facility] CNPNon 10-05-2023 CNPN Normal [facility] CNPNon 10-04-2023 CNPN Normal [facility] CBC W Auto Differential pane l (Bld)on 10-03-2023 Basophils (Bld) [#/Vol] 0.04 10*3/uL [facility]F [facility] Basophils/100 WBC (Bld) 0.4 % [facility] Differential cell count method Nom (Bld) Auto [facility] Eosinophils (Bld) [#/Vol] NINF [facility] Eosinophils/100 WBC (Bld) 0.1 % [facility] Erythrocyte distribution width (RBC) [Ratio] 14.2 % 11.5 - 15.0 % [facility] Hematocrit (Bld) [Volume fraction] 29.5 % Low 39.0 - 51.0 % [facility] Hemoglobin (Bld) [Mass/Vol] 9.6 g/dL Low 13.0 - 17.0 g/dL [facility] Immature granulocytes (Bld) [#/Vol] 0.18 10*3/uL High [facility] Immature granulocytes/100 WBC (Bld) 1.8 % [facility] Interpretation and review of laboratory results Abnormal [facility] Lymphocytes (Bld) [#/Vol] 1.28 10*3/uL [facility] Lymphocytes/100 WBC (Bld) 13.0 % [facility] MCH (RBC) [Entitic mass] 31.4 pg 26.0 - 34.0 pg [facility] MCHC (RBC) [Mass/Vol] 32.5 g/dL 30.5 - 36.0 g/dL [facility] MCV (RBC) [Entitic vol] 96.4 fL 80.0 - 100.0 fL [facility] Monocytes (Bld) [#/Vol] 1.25 10*3/uL High [facility] Monocytes/100 WBC (Bld) 12.7 % [facility] Neutrophils (Bld) [#/Vol] 7.08 10*3/uL [facility] Neutrophils/100 WBC (Bld) 72.0 % [facility] Nucleated RBC (Bld) [#/Vol] [facility] Nucleated RBC/100 WBC (Bld) [Ratio] 0.0 % /100 WBC [facility] Platelet mean volume (Bld) [Entitic vol] 9.0 fL 9.0 - 12.7 fL [facility] Platelets (Bld) [#/Vol] 407 10*3/uL High [facility] RBC (Bld) [#/Vol] 3.06 10*6/uL Low 4.20 - 6.0 0 m/uL [facility] WBC (Bld) [#/Vol] 9.84 10*3/uL [facility] Basophils (Bld) [#/Vol] 0.04 10*3/uL Normal <0.11 [facility] Comment on above: Order Comment: Speci men Type: BLOOD SPECIMENOrdering Facility: [facility] Address: [address] [place] [address] Performed By: #### 5 7021-8 ####[facility] LABCLIA [id number] [place] [address] Basophils/100 WBC (Bld) 0.4 % Normal [facility] Comment on above: Order Comment: Speci men Type: BLOOD SPECIMENOrdering Facility: [facility] Address: [address] [place] [address] Performed By: #### 5 7021-8 ####[facility] LABCLIA [id number] [place] [address] Differential cell count method Nom (Bld) Auto Normal [facility] Comment on above: Order Comment: Speci men Type: BLOOD SPECIMENOrdering Facility: [facility] Address: [address] [place] [address] Performed By: #### 5 7021-8 ####[facility] LABCLIA [id number] [place] [address] Eosinophils (Bld) [#/Vol] 10*3/uL Normal <0.46 [facility] Comment on above: Order Comment: Speci men Type: BLOOD SPECIMENOrdering Facility: [facility] Address: [address] [place] [address] Performed By: #### 5 7021-8 ####[facility] LABCLIA [id number] [place] [address] Eosinophils/100 WBC (Bld) 0.1 % Normal [facility] Comment on above: Order Comment: Speci men Type: BLOOD SPECIMENOrdering Facility: [facility] Address: [address] [place] [address] Performed By: #### 5 7021-8 ####[facility] LABCLIA [id number] [place] [address] Erythrocyte distribution width (RBC) [Ratio] 14.2 % Normal 11.5-15.0 [facility] Comment on above: Order Comment: Speci men Type: BLOOD SPECIMENOrdering Facility: [facility] Address: [address] [place] [address] Performed By: #### 5 7021-8 ####[facility] LABCLIA [id number] [place] [address] Hematocrit (Bld) [Volume fraction] 29.5 % Low 39.0-51.0 [facility] Comment on above: Order Comment: Speci men Type: BLOOD SPECIMENOrdering Facility: [facility] Address: [address] [place] [address] Performed By: #### 5 7021-8 ####[facility] LABCLIA [id number] [place] [address] Hemoglobin (Bld) [Mass/Vol] 9.6 g/dL Low 13.0-17.0 [facility] Comment on above: Order Comment: Speci men Type: BLOOD SPECIMENOrdering Facility: [facility] Address: [address] [place] [address] Performed By: #### 5 7021-8 ####[facility] LABCLIA [id number] [place] [address] Immature granulocytes (Bld) [#/Vol] 0.18 10*3/uL High <0.10 [facility] Comment on above: Order Comment: Speci men Type: BLOOD SPECIMENOrdering Facility: [facility] Address: [address] [place] [address] Performed By: #### 5 7021-8 ####[facility] LABCLIA [id number] [place] [address] Immature granulocytes/100 WBC (Bld) 1.8 % Normal [facility] Comment on above: Order Comment: Speci men Type: BLOOD SPECIMENOrdering Facility: [facility] Address: [address] [place] [address] Performed By: #### 5 7021-8 ####[facility] LABCLIA [id number] [place] [address] Lymphocytes (Bld) [#/Vol] 1.28 10*3/uL Normal 1.00-4.00 [facility] Comment on above: Order Comment: Speci men Type: BLOOD SPECIMENOrdering Facility: [facility] Address: [address] [place] [address] Performed By: #### 5 7021-8 ####[facility] LABCLIA [id number] [place] [address] Lymphocytes/100 WBC (Bld) 13.0 % Normal [facility] Comment on above: Order Comment: Speci men Type: BLOOD SPECIMENOrdering Facility: [facility] Address: [address] [place] [address] Performed By: #### 5 7021-8 ####[facility] LABCLIA [id number] [place] [address] MCH (RBC) [Entitic mass] 31.4 pg Normal 26.0-34.0 [facility] Comment on above: Order Comment: Speci men Type: BLOOD SPECIMENOrdering Facility: [facility] Address: [address] [place] [address] Performed By: #### 5 7021-8 ####[facility] LABCLIA [id number] [place] [address] MCHC (RBC) [Mass/Vol] 32.5 g/dL Normal 30.5-36.0 [facility] Comment on above: Order Comment: Speci men Type: BLOOD SPECIMENOrdering Facility: [facility] Address: [address] [place] [address] Performed By: #### 5 7021-8 ####[facility] LABCLIA [id number] [place] [address] MCV (RBC) [Entitic vol] 96.4 fL Normal 80.0-100.0 [facility] Comment on above: Order Comment: Speci men Type: BLOOD SPECIMENOrdering Facility: [facility] [facility] Address: [address] [place] [address] Performed By: #### 5 7021-8 ####[facility] LABCLIA [id number] [place] [address] Monocytes (Bld) [#/Vol] 1.25 10*3/uL High <0.87 [facility] Comment on above: Order Comment: Speci men Type: BLOOD SPECIMENOrdering Facility: [facility] Address: [address] [place] [address] Performed By: #### 5 7021-8 ####[facility] LABCLIA [id number] [place] [address] Monocytes/100 WBC (Bld) 12.7 % Normal [facility] Comment on above: Order Comment: Speci men Type: BLOOD SPECIMENOrdering Facility: [facility] Address: [address] [place] [address] Performed By: #### 5 7021-8 ####[facility] LABCLIA [id number] [place] [address] Neutrophils (Bld) [#/Vol] 7.08 10*3/uL Normal 1.45-7.50 [facility] Comment on above: Order Comment: Speci men Type: BLOOD SPECIMENOrdering Facility: [facility] Address: [address] [place] [address] Performed By: #### 5 7021-8 ####[facility] LABCLIA [id number] [place] [address] Neutrophils/100 WBC (Bld) 72.0 % Normal [facility] Comment on above: Order Comment: Speci men Type: BLOOD SPECIMENOrdering Facility: [facility] Address: [address] [place] [address] Performed By: #### 5 7021-8 ####[facility] LABCLIA [id number] [place] [address] Nucleated RBC (Bld) [#/Vol] 10*3/uL Normal <0.01 [facility] Comment on above: Order Comment: Speci men Type: BLOOD SPECIMENOrdering Facility: [facility] Address: [address] [place] [address] Performed By: #### 5 7021-8 ####[facility] LABCLIA [id number] [place] [address] Nucleated RBC/100 WBC (Bld) [Ratio] 0.0 /100 WBC Normal [facility] Comment on above: Order Comment: Speci men Type: BLOOD SPECIMENOrdering Facility: [facility] Address: [address] [place] [address] Performed By: #### 5 7021-8 ####[facility] LABCLIA [id number] [place] [address] Platelet mean volume (Bld) [Entitic vol] 9.0 fL Normal 9.0-12.7 [facility] Comment on above: Order Comment: Speci men Type: BLOOD SPECIMENOrdering Facility: [facility] Address: [address] [place] [address] Performed By: #### 5 7021-8 ####[facility] LABCLIA [id number] [place] [address] Platelets (Bld) [#/Vol] 407 10*3/uL High 150-400 [facility] Comment on above: Order Comment: Speci men Type: BLOOD SPECIMENOrdering Facility: [facility] Address: [address] [place] [address] Performed By: #### 5 7021-8 ####[facility] LABIA [id number] [place] [address] RBC (Bld) [#/Vol] 3.06 10*6/uL Low 4.20-6.00 [facility] Comment on above: Order Comment: Speci men Type: BLOOD SPECIMENOrdering Facility: [facility] Address: [address] [place] [address] Performed By: #### 5 7021-8 ####[facility] LABCLIA [id number] [place] [address] WBC (Bld) [#/Vol] 9.84 10*3/uL Normal 3.70-11.00 [facility] Comment on above: Order Comment: Speci men Type: BLOOD SPECIMENOrdering Facility: [facility] Address: [address] [place] [address] Performed By: #### 5 7021-8 ####[facility] LABCLIA [id number] [place] [address] CNOVSPon 10-03-2023 CNOVSP Normal [facility] CNPNon 10-03-2023 CNPN Normal [facility] Cancer Ag19-9 SerPl-aCncon 0 10-03-2023 Cancer Ag 19-9 Qn 234.0 [arb'U]/mL High <36.0 C [facility] Comment on above: Order Comment: Speci men Type: BLOOD SPECIMENOrdering Facility: [facility] Address: [address] [place] [address] Result Comment: [facility] er antigen 19-9 test is used as an aid in monitoring response to treatment or recurrence in patients with established pancreatic, hepatobiliary, or gastrointestinal malignancies. Clinical correlation is required.The CA 19-9 Antigen test was performed using the [employer] DXI paramagnetic particle chemiluminescent immunoassay method. Results obtained with different assay methods or kits cannot be used interchangeably. Performed By: #### 2 4108-3 ####[facility] LABCLIA [id number] [place] [address] [facility] Comprehensive metabolic 2000 panelOrdered By: Elizabeth Yu on 10-03-2023 Albumin [Mass/Vol] 3.0 g/dL Low 3.9 - 4.9 g/dL [facility] ALP [Catalytic activity/Vol] 110 U/L 38 - 113 U/L [facility] ALT [Catalytic activity/Vol] 10 U/L 10 - 54 U/L [facility] Anion gap [Moles/Vol] 8 mmol/L Low 9 - 18 mmol/L [facility] AST [Catalytic activity/Vol] 11 U/L Low 14 - 40 U/L [facility] Bilirubin [Mass/Vol] 0.6 mg/dL 0.2 - 1 .3 mg/dL [facility] Calcium [Mass/Vol] 10.4 mg/dL High 8.5 - 10. 2 mg/dL [facility] Chloride [Moles/Vol] 100 mmol/L 97 - 10 5 mmol/L [facility] CO2 [Moles/Vol] 27 mmol/L 22 - 30 mmol/L [facility] Creatinine [Mass/Vol] 0.83 mg/dL 0.73 - 1.22 mg/dL [facility] GFR/1.73 sq M.predicted among non-blacks MDRD (S/P/Bld) [Vol rate/Area] 93 mL/min/{1.73_m2} - PINF [facility] Comment on above: Estimated Glomerular Filtration [...] 167 mg/dL High 74 - 99 mg/dL [facility] Comment on above: The [place] Di[employer] (ADA) provides guidance for [...] Standards of Medical Care in Diabetes 2016, [place] [employer]. Diabetes Care. 2016.39(Suppl 1). Interpretation and review of laboratory results Abnormal [facility] Potassium [Moles/Vol] 4.3 mmol/L 3.7 - 5.1 mmol/L [facility] Protein [Mass/Vol] 6.9 g/dL 6.3 - 8.0 g/dL [facility] Sodium [Moles/Vol] 135 mmol/L Low 136 - 144 mmol/L [facility] Urea nitrogen [Mass/Vol] 13 mg/dL 9 - 24 mg/dL [facility] Comprehensive metabolic 2000 panelon 10-03-2023 Albumin [Mass/Vol] 3.0 g/dL Low 3.9-4.9 [facility] Comment on above: Order Comment: Speci men Type: BLOOD SPECIMENOrdering Facility: [facility] Address: [address] [place] [address] Performed By: #### 2 4323-8 ####[facility] LABCLIA [id number] [place] [address] ALP [Catalytic activity/Vol] 110 U/L Normal 38-113 [facility] Comment on above: Order Comment: Speci men Type: BLOOD SPECIMENOrdering Facility: [facility] Address: [address] [place] [address] Performed By: #### 2 4323-8 ####[facility] LABCLIA [id number] [place] [address] ALT [Catalytic activity/Vol] 10 U/L Normal 10-54 [facility] Comment on above: Order Comment: Speci men Type: BLOOD SPECIMENOrdering Facility: [facility] Address: [address] [place] [address] Performed By: #### 2 4323-8 ####[facility] LABCLIA [id number] [place] [address] Anion gap [Moles/Vol] 8 mmol/L Low 9-18 [facility] Comment on above: Order Comment: Speci men Type: BLOOD SPECIMENOrdering Facility: [facility] Address: [address] [place] [address] Performed By: #### 2 4323-8 ####[facility] LABCLIA [id number] [place] [address] AST [Catalytic activity/Vol] 11 U/L Low 14-40 [facility] Comment on above: Order Comment: Speci men Type: BLOOD SPECIMENOrdering Facility: [facility] Address: [address] [place] [address] Performed By: #### 2 4323-8 ####[facility] LABCLIA [id number] [place] [address] Bilirubin [Mass/Vol] 0.6 mg/dL Normal 0.2-1.3 [facility] Comment on above: Order Comment: Speci men Type: BLOOD SPECIMENOrdering Facility: [facility] Address: [address] [place] [address] Performed By: #### 2 4323-8 ####[facility] LABCLIA [id number] [place] [address] Calcium [Mass/Vol] 10.4 mg/dL High 8.5-10.2 [facility] Comment on above: Order Comment: Speci men Type: BLOOD SPECIMENOrdering Facility: [facility] Address: [address] [place] [address] Performed By: #### 2 4323-8 ####[facility] LABCLIA [id number] [place] [address] Chloride [Moles/Vol] 100 mmol/L Normal 97-105 [facility] Comment on above: Order Comment: Speci men Type: BLOOD SPECIMENOrdering Facility: [facility] Address: [address] [place] [address] Performed By: #### 2 4323-8 ####[facility] LABCLIA [id number] [place] [address] CO2 [Moles/Vol] 27 mmol/L Normal 22-30 [facility] Comment on above: Order Comment: Speci men Type: BLOOD SPECIMENOrdering Facility: [facility] Address: [address] [place] [address] Performed By: #### 2 4323-8 ####[facility] LABCLIA [id number] [place] [address] Creatinine [Mass/Vol] 0.83 mg/dL Normal 0.73-1.22 [facility] Comment on above: Order Comment: Speci men Type: BLOOD SPECIMENOrdering Facility: [facility] Address: [address] [place] [address] Performed By: #### 2 4323-8 ####[facility] LABCLIA [id number] [place] [address] Creatinine and Glomerular filtration rate.predicted panel (S/P/Bld) 93 mL/min/1.73m??? Normal >=60 [facility] Comment on above: Order Comment: Speci men Type: BLOOD SPECIMENOrdering Facility: [facility] Address: [address] [place] [address] Result Comment: Kathy mated Glomerular Filtration Rate [...] actual GFR. Performed By: #### 2 4323-8 ####[facility] LABCLIA [id number] [place] [address] Glucose [Mass/Vol] 167 mg/dL High 74-99 [facility] Comment on above: Order Comment: Speci men Type: BLOOD SPECIMENOrdering Facility: [facility] Address: [address] [place] [address] Result Comment: The [place] Diabetes Association (ADA) provides guidance for cutoff [...] Standards of Medical Care in Diabetes 2016, [place] [employer]. Diabetes Care. 2016.39(Suppl 1). Performed By: #### 2 4323-8 ####[facility] LABCLIA [id number] [place] [address] Potassium [Moles/Vol] 4.3 mmol/L Normal 3.7-5.1 [facility] Comment on above: Order Comment: Speci men Type: BLOOD SPECIMENOrdering Facility: [facility] Address: [address] [place] [address] Performed By: #### 2 4323-8 ####[facility] LABCLIA [id number] [place] [address] Protein [Mass/Vol] 6.9 g/dL Normal 6.3-8.0 [facility] Comment on above: Order Comment: Speci men Type: BLOOD SPECIMENOrdering Facility: [facility] Address: [address] [place] [address] Performed By: #### 2 4323-8 ####[facility] LABCLIA [id number] [place] [address] Sodium [Moles/Vol] 135 mmol/L Low 136-144 [facility] Comment on above: Order Comment: Speci men Type: BLOOD SPECIMENOrdering Facility: [facility] Address: [address] [place] [address] Performed By: #### 2 4323-8 ####[facility] LABCLIA [id number] [place] [address] Urea nitrogen [Mass/Vol] 13 mg/dL Normal 9-24 [facility] Comment on above: Order Comment: Speci men Type: BLOOD SPECIMENOrdering Facility: [facility] Address: [address] [place] [address] Performed By: #### 2 4323-8 ####[facility] LABCLIA [id number] [place] [address] XR CHEST 2V FRONTAL/LATon XR CHEST 2V FRONTAL/LAT Normal [facility] XR Chest PA and Lateralon IMPRESSION: [...] any questions regarding this interpretation, please call [phone]. If you are unable to reach us at the number above, please feel free to contact [facility] at [phone]. DIVISION OF RADIOLOGY * * *Final Report* [...] soft tissues: Unremarkable. DIVISION OF RADIOLOGY Provider, Angélica Mckeon - 10/03/2023 * * *Final Report* * [...] any questions regarding this interpretation, please call [phone]. If you are unable to reach us at the number above, please feel free to contact [facility] at [phone]. [facility] Radiology Study observation (narrative) [facility] XR Chest PA and LateralOrder ed By: Ccf Provider on 10-03-2023 [facility] CNPNon 09-25-2023 CNPN Normal [facility] CNPNon 09-18-2023 CNPN Normal [facility] CBC W Auto Differential pane l (Bld)on 09-13-2023 Basophils (Bld) [#/Vol] [facility] Basophils/100 WBC (Bld) 0.5 % [facility] Differential cell count method Nom (Bld) Auto [facility] Eosinophils (Bld) [#/Vol] 0.03 10*3/uL [facility] Eosinophils/100 WBC (Bld) 0.8 % [facility] Erythrocyte distribution width (RBC) [Ratio] 14.6 % 11.5 - 15.0 % [facility] Hematocrit (Bld) [Volume fraction] 35.3 % Low 39.0 - 51.0 % [facility] Hemoglobin (Bld) [Mass/Vol] 11.4 g/dL Low 13.0 - 17.0 g/dL [facility] Immature granulocytes (Bld) [#/Vol] [facility] Immature granulocytes/100 WBC (Bld) 0.3 % [facility] Interpretation and review of laboratory results Abnormal [facility] Lymphocytes (Bld) [#/Vol] 1.33 10*3/uL [facility] Lymphocytes/100 WBC (Bld) 34.2 % [facility] MCH (RBC) [Entitic mass] 33.2 pg 26.0 - 34.0 pg [facility] MCHC (RBC) [Mass/Vol] 32.3 g/dL 30.5 - 36.0 g/dL [facility] MCV (RBC) [Entitic vol] 102.9 fL High 80.0 - 100.0 fL [facility] Monocytes (Bld) [#/Vol] 0.59 10*3/uL [facility] Monocytes/100 WBC (Bld) 15.2 % [facility] Neutrophils (Bld) [#/Vol] 1.91 10*3/uL [facility] Neutrophils/100 WBC (Bld) 49.0 % [facility] Nucleated RBC (Bld) [#/Vol] [facility] Nucleated RBC/100 WBC (Bld) [Ratio] 0.0 % /100 WBC [facility] Platelet mean volume (Bld) [Entitic vol] 10.0 fL 9.0 - 12.7 fL [facility] Platelets (Bld) [#/Vol] 255 10*3/uL [facility] RBC (Bld) [#/Vol] 3.43 10*6/uL Low 4.20 - 6.0 0 m/uL [facility] WBC (Bld) [#/Vol] 3.89 10*3/uL [facility] Basophils (Bld) [#/Vol] 10*3/uL Normal <0.11 [facility] Comment on above: Order Comment: Speci men Type: BLOOD SPECIMENOrdering Facility: [facility] Address: [address] [place] [address] Performed By: #### 5 7021-8 ####[facility] LABCLIA [id number] [place] [address] Basophils/100 WBC (Bld) 0.5 % Normal [facility] Comment on above: Order Comment: Speci men Type: BLOOD SPECIMENOrdering Facility: [facility] Address: [address] [place] [address] Performed By: #### 5 7021-8 ####[facility] LABCLIA [id number] [place] [address] Differential cell count method Nom (Bld) Auto Normal [facility] Comment on above: Order Comment: Speci men Type: BLOOD SPECIMENOrdering Facility: [facility] Address: [address] [place] [address] Performed By: #### 5 7021-8 ####[facility] LABCLIA [id number] [place] [address] Eosinophils (Bld) [#/Vol] 0.03 10*3/uL Normal <0.46 [facility] Comment on above: Order Comment: Speci men Type: BLOOD SPECIMENOrdering Facility: [facility] Address: [address] [place] [address] Performed By: #### 5 7021-8 ####[facility] LABCLIA [id number] [place] [address] Eosinophils/100 WBC (Bld) 0.8 % Normal [facility] Comment on above: Order Comment: Speci men Type: BLOOD SPECIMENOrdering Facility: [facility] Address: [address] [place] [address] Performed By: #### 5 7021-8 ####[facility] LABCLIA [id number] [place] [address] Erythrocyte distribution width (RBC) [Ratio] 14.6 % Normal 11.5-15.0 [facility] Comment on above: Order Comment: Speci men Type: BLOOD SPECIMENOrdering Facility: [facility] Address: [address] [place] [address] Performed By: #### 5 7021-8 ####[facility] LABCLIA [id number] [place] [address] Hematocrit (Bld) [Volume fraction] 35.3 % Low 39.0-51.0 [facility] Comment on above: Order Comment: Speci men Type: BLOOD SPECIMENOrdering Facility: [facility] Address: [address] [place] [address] Performed By: #### 5 7021-8 ####[facility] LABCLIA [id number] [place] [address] Hemoglobin (Bld) [Mass/Vol] 11.4 g/dL Low 13.0-17.0 [facility] Comment on above: Order Comment: Speci men Type: BLOOD SPECIMENOrdering Facility: [facility] Address: [address] [place] [address] Performed By: #### 5 7021-8 ####[facility] LABCLIA [id number] [place] [address] Immature granulocytes (Bld) [#/Vol] 10*3/uL Normal <0.10 [facility] Comment on above: Order Comment: Speci men Type: BLOOD SPECIMENOrdering Facility: [facility] Address: [address] [place] [address] Performed By: #### 5 7021-8 ####[facility] LABCLIA [id number] [place] [address] Immature granulocytes/100 WBC (Bld) 0.3 % Normal [facility] Comment on above: Order Comment: Speci men Type: BLOOD SPECIMENOrdering Facility: [facility] Address: [address] [place] [address] Performed By: #### 5 7021-8 ####[facility] LABCLIA [id number] [place] [address] Lymphocytes (Bld) [#/Vol] 1.33 10*3/uL Normal 1.00-4.00 [facility] Comment on above: Order Comment: Speci men Type: BLOOD SPECIMENOrdering Facility: [facility] Address: [address] [place] [address] Performed By: #### 5 7021-8 ####[facility] LABCLIA [id number] [place] [address] Lymphocytes/100 WBC (Bld) 34.2 % Normal [facility] Comment on above: Order Comment: Speci men Type: BLOOD SPECIMENOrdering Facility: [facility] Address: [address] [place] [address] Performed By: #### 5 7021-8 ####[facility] LABCLIA [id number] [place] [address] MCH (RBC) [Entitic mass] 33.2 pg Normal 26.0-34.0 [facility] Comment on above: Order Comment: Speci men Type: BLOOD SPECIMENOrdering Facility: [facility] Address: [address] [place] [address] Performed By: #### 5 7021-8 ####[facility] LABCLIA [id number] [place] [address] MCHC (RBC) [Mass/Vol] 32.3 g/dL Normal 30.5-36.0 [facility] Comment on above: Order Comment: Speci men Type: BLOOD SPECIMENOrdering Facility: [facility] Address: [address] [place] [address] Performed By: #### 5 7021-8 ####[facility] LABCLIA [id number] [place] [address] MCV (RBC) [Entitic vol] 102.9 fL High 80.0-100.0 [facility] Comment on above: Order Comment: Speci men Type: BLOOD SPECIMENOrdering Facility: [facility] Address: [address] [place] [address] Performed By: #### 5 7021-8 ####[facility] LABCLIA [id number] [place] [address] Monocytes (Bld) [#/Vol] 0.59 10*3/uL Normal <0.87 [facility] Comment on above: Order Comment: Speci men Type: BLOOD SPECIMENOrdering Facility: [facility] Address: [address] [place] [address] Performed By: #### 5 7021-8 ####[facility] LABCLIA [id number] [place] [address] Monocytes/100 WBC (Bld) 15.2 % Normal [facility] Comment on above: Order Comment: Speci men Type: BLOOD SPECIMENOrdering Facility: [facility] Address: [address] [place] [address] Performed By: #### 5 7021-8 ####[facility] LABCLIA [id number] [place] [address] Neutrophils (Bld) [#/Vol] 1.91 10*3/uL Normal 1.45-7.50 [facility] Comment on above: Order Comment: Speci men Type: BLOOD SPECIMENOrdering Facility: [facility] Address: [address] [place] [address] Performed By: #### 5 7021-8 ####[facility] LABCLIA [id number] [place] [address] Neutrophils/100 WBC (Bld) 49.0 % Normal [facility] Comment on above: Order Comment: Speci men Type: BLOOD SPECIMENOrdering Facility: [facility] Address: [address] [place] [address] Performed By: #### 5 7021-8 ####[facility] LABCLIA [id number] [place] [address] Nucleated RBC (Bld) [#/Vol] 10*3/uL Normal <0.01 [facility] Comment on above: Order Comment: Speci men Type: BLOOD SPECIMENOrdering Facility: [facility] Address: [address] [place] [address] Performed By: #### 5 7021-8 ####[facility] LABCLIA [id number] [place] [address] Nucleated RBC/100 WBC (Bld) [Ratio] 0.0 /100 WBC Normal [facility] Comment on above: Order Comment: Speci men Type: BLOOD SPECIMENOrdering Facility: [facility] Address: [address] [place] [address] Performed By: #### 5 7021-8 ####[facility] LABCLIA [id number] [place] [address] Platelet mean volume (Bld) [Entitic vol] 10.0 fL Normal 9.0-12.7 [facility] Comment on above: Order Comment: Speci men Type: BLOOD SPECIMENOrdering Facility: [facility] Address: [address] [place] [address] Performed By: #### 5 7021-8 ####[facility] LABCLIA [id number] [place] [address] Platelets (Bld) [#/Vol] 255 10*3/uL Normal 150-400 [facility] Comment on above: Order Comment: Speci men Type: BLOOD SPECIMENOrdering Facility: [facility] Address: [address] [place] [address] Performed By: #### 5 7021-8 ####[facility] LABCLIA [id number] [place] [address] RBC (Bld) [#/Vol] 3.43 10*6/uL Low 4.20-6.00 [facility] Comment on above: Order Comment: Speci men Type: BLOOD SPECIMENOrdering Facility: [facility] Address: [address] [place] [address] Performed By: #### 5 7021-8 ####[facility] LABCLIA [id number] [place] [address] WBC (Bld) [#/Vol] 3.89 10*3/uL Normal 3.70-11.00 [facility] Comment on above: Order Comment: Speci men Type: BLOOD SPECIMENOrdering Facility: [facility] Address: [address] [id number] Performed By: #### 5 7021-8 ####[facility] LABCLIA [id number] [place] [address] CNOVSPon 09-13-2023 CNOVSP Normal [facility] Cancer Ag19-9 SerPl-aCncon 0 09-13-2023 Cancer Ag 19-9 Qn 967.0 [arb'U]/mL High <36.0 C [facility] Comment on above: Order Comment: Speci men Type: BLOOD SPECIMENOrdering Facility: [facility] Address: [address] [place], [place] [id number] Result Comment: [facility] er antigen 19-9 test is used as an aid in monitoring response to treatment or recurrence in patients with established pancreatic, hepatobiliary, or gastrointestinal malignancies. Clinical correlation is required.The [place] 19-9 Antigen test was performed using the [employer] DXI paramagnetic particle chemiluminescent immunoassay method. Results obtained with different assay methods or kits cannot be used interchangeably. Performed By: #### 2 4108-3 ####[facility] LABCLIA [id number] [place] [id number] [place] Comprehensive metabolic 2000 panelOrdered By: Je Elias on 09-13-2023 Albumin [Mass/Vol] 3.8 g/dL Low 3.9 - 4.9 g/dL [facility] ALP [Catalytic activity/Vol] 136 U/L High 38 - 113 U/L [facility] ALT [Catalytic activity/Vol] 18 U/L 10 - 54 U/L [facility] Anion gap [Moles/Vol] 10 mmol/L 9 - 18 mmol/L [facility] AST [Catalytic activity/Vol] 16 U/L 14 - 40 U/L [facility] Bilirubin [Mass/Vol] 0.7 mg/dL 0.2 - 1 .3 mg/dL [facility] Calcium [Mass/Vol] 10.3 mg/dL High 8.5 - 10. 2 mg/dL [facility] Chloride [Moles/Vol] 109 mmol/L High 97 - 10 5 mmol/L [facility] CO2 [Moles/Vol] 24 mmol/L 22 - 30 mmol/L [facility] Creatinine [Mass/Vol] 0.81 mg/dL 0.73 - 1.22 mg/dL [facility] GFR/1.73 sq M.predicted among non-blacks MDRD (S/P/Bld) [Vol rate/Area] 94 mL/min/{1.73_m2} - PINF [facility] Comment on above: Estimated Glomerular Filtration [...] 142 mg/dL High 74 - 99 mg/dL [facility] Comment on above: The [place] [employer] (ADA) provides guidance for [...] Standards of Medical Care in Diabetes 2016, [place] [employer]. Diabetes Care. 2016.39(Suppl 1). Interpretation and review of laboratory results Abnormal [facility] Potassium [Moles/Vol] 4.4 mmol/L 3.7 - 5.1 mmol/L [facility] Protein [Mass/Vol] 6.6 g/dL 6.3 - 8.0 g/dL [facility] Sodium [Moles/Vol] 143 mmol/L 136 - 144 mmol/L [facility] Urea nitrogen [Mass/Vol] 16 mg/dL 9 - 24 mg/dL [facility] Comprehensive metabolic 2000 panelon 09-13-2023 Albumin [Mass/Vol] 3.8 g/dL Low 3.9-4.9 [facility] Comment on above: Order Comment: Speci men Type: BLOOD SPECIMENOrdering Facility: [facility] Address: [address] [place] [address] Performed By: #### 2 4323-8 ####[facility] LABCLIA [id number] [place] [address] ALP [Catalytic activity/Vol] 136 U/L High 38-113 [facility] Comment on above: Order Comment: Speci men Type: BLOOD SPECIMENOrdering Facility: [facility] Address: [address] [place] [address] Performed By: #### 2 4323-8 ####[facility] LABCLIA [id number] [place] [address] ALT [Catalytic activity/Vol] 18 U/L Normal 10-54 [facility] Comment on above: Order Comment: Speci men Type: BLOOD SPECIMENOrdering Facility: [facility] Address: [address] [place] [address] Performed By: #### 2 4323-8 ####[facility] LABCLIA [id number] [place] [address] Anion gap [Moles/Vol] 10 mmol/L Normal 9-18 [facility] Comment on above: Order Comment: Speci men Type: BLOOD SPECIMENOrdering Facility: [facility] Address: [address] [place] [address] Performed By: #### 2 4323-8 ####[facility] LABCLIA [id number] [place] [address] AST [Catalytic activity/Vol] 16 U/L Normal 14-40 [facility] Comment on above: Order Comment: Speci men Type: BLOOD SPECIMENOrdering Facility: [facility] Address: [address] [place] [address] Performed By: #### 2 4323-8 ####[facility] LABCLIA [id number] [place] [address] Bilirubin [Mass/Vol] 0.7 mg/dL Normal 0.2-1.3 [facility] Comment on above: Order Comment: Speci men Type: BLOOD SPECIMENOrdering Facility: [facility] Address: [address] [place] [address] Performed By: #### 2 4323-8 ####[facility] LABCLIA [id number] [place] [address] Calcium [Mass/Vol] 10.3 mg/dL High 8.5-10.2 [facility] Comment on above: Order Comment: Speci men Type: BLOOD SPECIMENOrdering Facility: [facility] Address: [address] [place] [address] Performed By: #### 2 4323-8 ####[facility] LABCLIA [id number] [place] [address] Chloride [Moles/Vol] 109 mmol/L High 97-105 [facility] Comment on above: Order Comment: Speci men Type: BLOOD SPECIMENOrdering Facility: [facility] Address: [address] [place] [address] Performed By: #### 2 4323-8 ####[facility] LABCLIA [id number] [place] [address] CO2 [Moles/Vol] 24 mmol/L Normal 22-30 [facility] Comment on above: Order Comment: Speci men Type: BLOOD SPECIMENOrdering Facility: [facility] Address: [address] [place] [address] Performed By: #### 2 4323-8 ####[facility] LABCLIA [id number] [place] [address] Creatinine [Mass/Vol] 0.81 mg/dL Normal 0.73-1.22 [facility] Comment on above: Order Comment: Speci men Type: BLOOD SPECIMENOrdering Facility: [facility] Address: [address] [place] [address] Performed By: #### 2 4323-8 ####[facility] LABCLIA [id number] [place] [address] Creatinine and Glomerular filtration rate.predicted panel (S/P/Bld) 94 mL/min/1.73m??? Normal >=60 [facility] Comment on above: Order Comment: Noemí hoff Type: BLOOD SPECIMENOrdering Facility: [facility] Address: [address] [place] [address] Result Comment: Kathy mated Glomerular Filtration Rate [...] actual GFR. Performed By: #### 2 4323-8 ####[facility] LABCLIA [id number] [place] [address] Glucose [Mass/Vol] 142 mg/dL High 74-99 [facility] Comment on above: Order Comment: Noemí hoff Type: BLOOD SPECIMENOrdering Facility: [facility] Address: [address] [place] [address] Result Comment: The [place] Diabetes Association (ADA) provides guidance for cutoff [...] Standards of Medical Care in Diabetes 2016, [place] [employer]. Diabetes Care. 2016.39(Suppl 1). Performed By: #### 2 4323-8 ####[facility] LABCLIA [id number] [place] [address] Potassium [Moles/Vol] 4.4 mmol/L Normal 3.7-5.1 [facility] Comment on above: Order Comment: Speci men Type: BLOOD SPECIMENOrdering Facility: [facility] Address: [address] [place] [address] [place], [place] [address] Performed By: #### 2 4323-8 ####[facility] LABCLIA [id number] [place] [address] Protein [Mass/Vol] 6.6 g/dL Normal 6.3-8.0 [facility] Comment on above: Order Comment: Speci men Type: BLOOD SPECIMENOrdering Facility: [facility] Address: [address] [place] [address] Performed By: #### 2 4323-8 ####[facility] LABCLIA [id number] [place] [address] Sodium [Moles/Vol] 143 mmol/L Normal 136-144 [facility] Comment on above: Order Comment: Speci men Type: BLOOD SPECIMENOrdering Facility: [facility] Address: [address] [place] [address] [place], [place] [address] Performed By: #### 2 4323-8 ####[facility] LABCLIA [id number] [place] [address] Urea nitrogen [Mass/Vol] 16 mg/dL Normal 9-24 [facility] Comment on above: Order Comment: Speci men Type: BLOOD SPECIMENOrdering Facility: [facility] Address: [address] [place] [address] [place], [place] [address] Performed By: #### 2 4323-8 ####[facility] LABCLIA [id number] [place] [address] FERRITIN BLDon 09-13-2023 Ferritin [Mass/Vol] 56.8 ng/mL 30.3 - 565.7 ng/mL [facility] Ferritin SerPl-mCncon 2023 Ferritin [Mass/Vol] 56.8 ng/mL Normal 30.3-565.7 [facility] Comment on above: Order Comment: Speci men Type: BLOOD SPECIMENOrdering Facility: [facility] Address: [address] [place] [address] Performed By: #### 5 0190-8, 2275-08, 2132-01 ####[facility] LABCLIA [id number] [address] [address] [place] Iron and Iron binding capaci ty panelon 09-13-2023 Interpretation and review of laboratory results Normal [facility] Iron [Mass/Vol] 55 ug/dL 41 - 186 ug/dL [facility] Iron binding capacity [Mass/Vol] 335 ug/dL 232 - 386 ug/dL [facility] Iron/TIBC [Molar ratio] 16.4 % 15.0 - 57.0 % [facility] Iron [Mass/Vol] 55 ug/dL Normal 41-186 [facility] Comment on above: Order Comment: Speci men Type: BLOOD SPECIMENOrdering Facility: [facility] Address: [address] [place] [address] Performed By: #### 5 0190-8, 2275-08, 2132-01 ####[facility] LABCLIA [id number] [place] [address] [place] Iron binding capacity [Mass/Vol] 335 ug/dL Normal 232-386 [facility] Comment on above: Order Comment: Speci men Type: BLOOD SPECIMENOrdering Facility: [facility] Address: [address] [place] [address] Performed By: #### 5 0190-8, 2275-08, 2132-01 ####[facility] LABCLIA [id number] [address] [address] [place] Iron/TIBC [Molar ratio] 16.4 % Normal 15.0-57.0 [facility] Comment on above: Order Comment: Speci men Type: BLOOD SPECIMENOrdering Facility: [facility] Address: [address] [place] [address] Performed By: #### 5 0190-8, 2275-08, 2132-01 ####[facility] LABCLIA [id number] [place] [address] [place] No Panel Informationon 09-12 Interpretation and review of laboratory results Normal [facility] VITAMIN B12 BLOODon 09-13-19 24 Cobalamin (Vitamin B12) [Mass/Vol] 720 pg/mL 232 - 1245 pg/mL [facility] Vit B12 SerPl-mCncon 024 Cobalamin (Vitamin B12) [Mass/Vol] 720 pg/mL Normal 232-1245 [facility] Comment on above: Order Comment: Speci men Type: BLOOD SPECIMENOrdering Facility: [facility] Address: [address] [place] [address] Performed By: #### 5 0190-8, 2276-4, 2132-9 ####[facility] LABCLIA [id number] [place] [address] [place] CBC W Auto Differential pane l (Bld)on 08-23-2023 Basophils (Bld) [#/Vol] <0.11 k/uL [facility] Basophils/100 WBC (Bld) 0.4 % [facility] Differential cell count method Nom (Bld) Auto [facility] Eosinophils (Bld) [#/Vol] 0.04 10*3/uL <0.46 k/uL [facility] Eosinophils/100 WBC (Bld) 0.8 % [facility] Erythrocyte distribution width (RBC) [Ratio] 15.3 % High 11.5 - 15.0 % [facility] Hematocrit (Bld) [Volume fraction] 34.6 % Low 39.0 - 51.0 % [facility] Hemoglobin (Bld) [Mass/Vol] 11.3 g/dL Low 13.0 - 17.0 g/dL [facility] Immature granulocytes (Bld) [#/Vol] <0.10 k/uL [facility] Immature granulocytes/100 WBC (Bld) 0.4 % [facility] Lymphocytes (Bld) [#/Vol] 1.95 10*3/uL 1.00 - 4.00 k/uL [facility] Lymphocytes/100 WBC (Bld) 40.7 % [facility] MCH (RBC) [Entitic mass] 34.1 pg High 26.0 - 34.0 pg [facility] MCHC (RBC) [Mass/Vol] 32.7 g/dL 30.5 - 36.0 g/dL [facility] MCV (RBC) [Entitic vol] 104.5 fL High 80.0 - 100.0 fL [facility] Monocytes (Bld) [#/Vol] 0.72 10*3/uL <0.87 k/uL [facility] Monocytes/100 WBC (Bld) 15.0 % [facility] Neutrophils (Bld) [#/Vol] 2.04 10*3/uL 1.45 - 7.50 k/uL [facility] Neutrophils/100 WBC (Bld) 42.7 % [facility] Nucleated RBC (Bld) [#/Vol] <0.01 k/uL [facility] Nucleated RBC/100 WBC (Bld) [Ratio] 0.0 /100 WBC [facility] Platelet mean volume (Bld) [Entitic vol] 10.0 fL 9.0 - 12.7 fL [facility] Platelets (Bld) [#/Vol] 241 10*3/uL 150 - 400 k/uL [facility] RBC (Bld) [#/Vol] 3.31 10*6/uL Low 4.20 - 6.0 0 m/uL [facility] WBC (Bld) [#/Vol] 4.79 10*3/uL 3.70 - 11.00 k/uL [facility] Basophils (Bld) [#/Vol] 10*3/uL Normal <0.11 [facility] Comment on above: Order Comment: Speci men Type: BLOOD SPECIMENOrdering Facility: [facility] Address: [address] [place] [address] Performed By: #### 5 7021-8 ####[facility] LABCLIA [id number] [place] [address] Basophils/100 WBC (Bld) 0.4 % Normal [facility] Comment on above: Order Comment: Speci men Type: BLOOD SPECIMENOrdering Facility: [facility] Address: [address] [place] [address] Performed By: #### 5 7021-8 ####[facility] LABCLIA [id number] [place] [address] Differential cell count method Nom (Bld) Auto Normal [facility] Comment on above: Order Comment: Speci men Type: BLOOD SPECIMENOrdering Facility: [facility] Address: [address] [place] [address] Performed By: #### 5 7021-8 ####[facility] LABCLIA [id number] [place] [address] Eosinophils (Bld) [#/Vol] 0.04 10*3/uL Normal <0.46 [facility] Comment on above: Order Comment: Speci men Type: BLOOD SPECIMENOrdering Facility: [facility] Address: [address] [place] [address] Performed By: #### 5 7021-8 ####[facility] LABCLIA [id number] [place] [address] Eosinophils/100 WBC (Bld) 0.8 % Normal [facility] Comment on above: Order Comment: Speci men Type: BLOOD SPECIMENOrdering Facility: [facility] Address: [address] [place] [address] Performed By: #### 5 7021-8 ####[facility] LABCLIA [id number] [place] [address] Erythrocyte distribution width (RBC) [Ratio] 15.3 % High 11.5-15.0 [facility] Comment on above: Order Comment: Speci men Type: BLOOD SPECIMENOrdering Facility: [facility] Address: [address] [place] [address] Performed By: #### 5 7021-8 ####[facility] LABIA [id number] [place] [address] Hematocrit (Bld) [Volume fraction] 34.6 % Low 39.0-51.0 [facility] Comment on above: Order Comment: Speci men Type: BLOOD SPECIMENOrdering Facility: [facility] Address: [address] [place] [address] Performed By: #### 5 7021-8 ####[facility] LABCLIA [id number] [place] [address] Hemoglobin (Bld) [Mass/Vol] 11.3 g/dL Low 13.0-17.0 [facility] Comment on above: Order Comment: Speci men Type: BLOOD SPECIMENOrdering Facility: [facility] Address: [address] [place] [address] Performed By: #### 5 7021-8 ####[facility] LABCLIA [id number] [place] [address] Immature granulocytes (Bld) [#/Vol] 10*3/uL Normal <0.10 [facility] Comment on above: Order Comment: Speci men Type: BLOOD SPECIMENOrdering Facility: [facility] Address: [address] [place] [address] Performed By: #### 5 7021-8 ####[facility] LABCLIA [id number] [place] [address] Immature granulocytes/100 WBC (Bld) 0.4 % Normal [facility] Comment on above: Order Comment: Speci men Type: BLOOD SPECIMENOrdering Facility: [facility] Address: [address] [place] [address] Performed By: #### 5 7021-8 ####[facility] LABCLIA [id number] [place] [address] Lymphocytes (Bld) [#/Vol] 1.95 10*3/uL Normal 1.00-4.00 [facility] Comment on above: Order Comment: Speci men Type: BLOOD SPECIMENOrdering Facility: [facility] Address: [address] [place] [address] Performed By: #### 5 7021-8 ####[facility] LABCLIA [id number] [place] [address] Lymphocytes/100 WBC (Bld) 40.7 % Normal [facility] Comment on above: Order Comment: Speci men Type: BLOOD SPECIMENOrdering Facility: [facility] Address: [address] [place] [address] Performed By: #### 5 7021-8 ####[facility] LABCLIA [id number] [place] [address] MCH (RBC) [Entitic mass] 34.1 pg High 26.0-34.0 [facility] Comment on above: Order Comment: Speci men Type: BLOOD SPECIMENOrdering Facility: [facility] Address: [address] [place] [address] Performed By: #### 5 7021-8 ####[facility] LABCLIA [id number] [place] [address] MCHC (RBC) [Mass/Vol] 32.7 g/dL Normal 30.5-36.0 [facility] Comment on above: Order Comment: Speci men Type: BLOOD SPECIMENOrdering Facility: [facility] Address: [address] [place] [address] Performed By: #### 5 7021-8 ####[facility] LABCLIA [id number] [place] [address] MCV (RBC) [Entitic vol] 104.5 fL High 80.0-100.0 [facility] Comment on above: Order Comment: Speci men Type: BLOOD SPECIMENOrdering Facility: [facility] Address: [address] [place] [address] Performed By: #### 5 7021-8 ####[facility] LABIA [id number] [place] [address] Monocytes (Bld) [#/Vol] 0.72 10*3/uL Normal <0.87 [facility] Comment on above: Order Comment: Speci men Type: BLOOD SPECIMENOrdering Facility: [facility] Address: [address] [place] [address] Performed By: #### 5 7021-8 ####[facility] LABCLIA [id number] [place] [address] Monocytes/100 WBC (Bld) 15.0 % Normal [facility] Comment on above: Order Comment: Speci men Type: BLOOD SPECIMENOrdering Facility: [facility] Address: [address] [place] [address] Performed By: #### 5 7021-8 ####[facility] LABCLIA [id number] [place] [address] Neutrophils (Bld) [#/Vol] 2.04 10*3/uL Normal 1.45-7.50 [facility] Comment on above: Order Comment: Speci men Type: BLOOD SPECIMENOrdering Facility: [facility] Address: [address] [place] [address] Performed By: #### 5 7021-8 ####[facility] LABCLIA [id number] [place] [address] Neutrophils/100 WBC (Bld) 42.7 % Normal [facility] Comment on above: Order Comment: Speci men Type: BLOOD SPECIMENOrdering Facility: [facility] Address: [address] [place] [address] Performed By: #### 5 7021-8 ####[facility] LABCLIA [id number] [place] [address] Nucleated RBC (Bld) [#/Vol] 10*3/uL Normal <0.01 [facility] Comment on above: Order Comment: Speci men Type: BLOOD SPECIMENOrdering Facility: [facility] Address: [address] [place] [address] Performed By: #### 5 7021-8 ####[facility] LABCLIA [id number] [place] [address] Nucleated RBC/100 WBC (Bld) [Ratio] 0.0 /100 WBC Normal [facility] Comment on above: Order Comment: Speci men Type: BLOOD SPECIMENOrdering Facility: [facility] Address: [address] [place] [address] Performed By: #### 5 7021-8 ####[facility] LABCLIA [id number] [place] [address] Platelet mean volume (Bld) [Entitic vol] 10.0 fL Normal 9.0-12.7 [facility] Comment on above: Order Comment: Speci men Type: BLOOD SPECIMENOrdering Facility: [facility] Address: [address] [place] [address] Performed By: #### 5 7021-8 ####[facility] LABCLIA [id number] [place] [address] Platelets (Bld) [#/Vol] 241 10*3/uL Normal 150-400 [facility] Comment on above: Order Comment: Speci men Type: BLOOD SPECIMENOrdering Facility: [facility] Address: [address] [place] [address] Performed By: #### 5 7021-8 ####[facility] LABCLIA [id number] [place] [address] RBC (Bld) [#/Vol] 3.31 10*6/uL Low 4.20-6.00 [facility] Comment on above: Order Comment: Speci men Type: BLOOD SPECIMENOrdering Facility: [facility] Address: [address] [place] [address] Performed By: #### 5 7021-8 ####[facility] LABCLIA [id number] [place] [address] WBC (Bld) [#/Vol] 4.79 10*3/uL Normal 3.70-11.00 [facility] Comment on above: Order Comment: Speci men Type: BLOOD SPECIMENOrdering Facility: [facility] Address: [address] [place] [address] Performed By: #### 5 7021-8 ####[facility] LABCLIA [id number] [place] [address] CNOVSPon 08-23-2023 CNOVSP Normal [facility] Cancer Ag19-9 SerPl-aCncon 0 08-23-2023 Cancer Ag 19-9 Qn 1509.0 [arb'U]/mL High <36.0 [facility] Comment on above: Order Comment: Speci men Type: BLOOD SPECIMENOrdering Facility: [facility] Address: [address] [place] [address] Result Comment: [facility] er antigen 19-9 test is used as an aid in monitoring response to treatment or recurrence in patients with established pancreatic, hepatobiliary, or gastrointestinal malignancies. Clinical correlation is required.The CA 19-9 Antigen test was performed using the Flyrel DXI paramagnetic particle chemiluminescent immunoassay method. Results obtained with different assay methods or kits cannot be used interchangeably. Performed By: #### 2 4108-3 ####[facility] LABCLIA [id number] [place] [address] [place] Comprehensive metabolic 2000 panelon 08-23-2023 Albumin [Mass/Vol] 4.0 g/dL 3.9 - 4.9 g/dL [facility] ALP [Catalytic activity/Vol] 139 U/L High 38 - 113 U/L [facility] ALT [Catalytic activity/Vol] 16 U/L 10 - 54 U/L [facility] Anion gap [Moles/Vol] 9 mmol/L 9 - 18 mmol/L [facility] AST [Catalytic activity/Vol] 16 U/L 14 - 40 U/L [facility] Bilirubin [Mass/Vol] 0.8 mg/dL 0.2 - 1 .3 mg/dL [facility] Calcium [Mass/Vol] 10.7 mg/dL High 8.5 - 10. 2 mg/dL [facility] Chloride [Moles/Vol] 105 mmol/L 97 - 10 5 mmol/L [facility] CO2 [Moles/Vol] 25 mmol/L 22 - 30 mmol/L [facility] Creatinine [Mass/Vol] 0.83 mg/dL 0.73 - 1.22 mg/dL [facility] Estimated Glomerular Filtration Rate 93 mL/min/1.73m >=60 mL/min/1.73 m [facility] Glucose [Mass/Vol] 142 mg/dL High 74 - 99 mg/dL [facility] Potassium [Moles/Vol] 4.1 mmol/L 3.7 - 5.1 mmol/L [facility] Protein [Mass/Vol] 6.9 g/dL 6.3 - 8.0 g/dL [facility] Sodium [Moles/Vol] 139 mmol/L 136 - 144 mmol/L [facility] Urea nitrogen [Mass/Vol] 19 mg/dL 9 - 24 mg/dL [facility] Albumin [Mass/Vol] 4.0 g/dL Normal 3.9-4.9 [facility] Comment on above: Order Comment: Speci men Type: BLOOD SPECIMENOrdering Facility: [facility] Address: [address] [place] [address] Performed By: #### 2 4323-8 ####[facility] LABCLIA [id number] [place] [address] ALP [Catalytic activity/Vol] 139 U/L High 38-113 [facility] Comment on above: Order Comment: Speci men Type: BLOOD SPECIMENOrdering Facility: [facility] Address: [address] [place] [address] Performed By: #### 2 4323-8 ####[facility] LABCLIA [id number] [place] [address] ALT [Catalytic activity/Vol] 16 U/L Normal 10-54 [facility] Comment on above: Order Comment: Speci men Type: BLOOD SPECIMENOrdering Facility: [facility] Address: [address] [place] [address] Performed By: #### 2 4323-8 ####[facility] LABCLIA [id number] [place] [address] Anion gap [Moles/Vol] 9 mmol/L Normal 9-18 [facility] Comment on above: Order Comment: Speci men Type: BLOOD SPECIMENOrdering Facility: [facility] Address: [address] [place] [address] Performed By: #### 2 4323-8 ####[facility] LABCLIA [id number] [place] [address] AST [Catalytic activity/Vol] 16 U/L Normal 14-40 [facility] Comment on above: Order Comment: Speci men Type: BLOOD SPECIMENOrdering Facility: [facility] Address: [address] [place] [address] Performed By: #### 2 4323-8 ####[facility] LABCLIA [id number] [place] [address] Bilirubin [Mass/Vol] 0.8 mg/dL Normal 0.2-1.3 [facility] Comment on above: Order Comment: Speci men Type: BLOOD SPECIMENOrdering Facility: [facility] Address: [address] [place] [address] Performed By: #### 2 4323-8 ####[facility] LABCLIA [id number] [place] [address] Calcium [Mass/Vol] 10.7 mg/dL High 8.5-10.2 [facility] Comment on above: Order Comment: Speci men Type: BLOOD SPECIMENOrdering Facility: [facility] Address: [address] [place] [address] Performed By: #### 2 4323-8 ####[facility] LABCLIA [id number] [place] [address] Chloride [Moles/Vol] 105 mmol/L Normal 97-105 [facility] Comment on above: Order Comment: Speci men Type: BLOOD SPECIMENOrdering Facility: [facility] Address: [address] [place] [address] Performed By: #### 2 4323-8 ####[facility] LABCLIA [id number] [place] [address] CO2 [Moles/Vol] 25 mmol/L Normal 22-30 [facility] Comment on above: Order Comment: Speci men Type: BLOOD SPECIMENOrdering Facility: [facility] Address: [address] [id number] Performed By: #### 2 4323-8 ####[facility] LABCLIA [id number] [place] [address] Creatinine [Mass/Vol] 0.83 mg/dL Normal 0.73-1.22 [facility] Comment on above: Order Comment: Speci men Type: BLOOD SPECIMENOrdering Facility: [facility] Address: [address] [place] [address] Performed By: #### 2 4323-8 ####[facility] LABCLIA [id number] [place] [address] Creatinine and Glomerular filtration rate.predicted panel (S/P/Bld) 93 mL/min/1.73m??? Normal >=60 [facility] Comment on above: Order Comment: Speci men Type: BLOOD SPECIMENOrdering Facility: [facility] Address: [address] [place] [address] Result Comment: Kathy mated Glomerular Filtration Rate [...] actual GFR. Performed By: #### 2 4323-8 ####[facility] LABCLIA [id number] [place] [address] Glucose [Mass/Vol] 142 mg/dL High 74-99 [facility] Comment on above: Order Comment: Speci men Type: BLOOD SPECIMENOrdering Facility: [facility] Address: [address] [place] [address] Result Comment: The [place] [employer] (ADA) provides guidance for cutoff [...] Standards of Medical Care in Diabetes 2016, [place] [employer]. Diabetes Care. 2016.39(Suppl 1). Performed By: #### 2 4323-8 ####[facility] LABCLIA [id number] [place] [address] Potassium [Moles/Vol] 4.1 mmol/L Normal 3.7-5.1 [facility] Comment on above: Order Comment: Speci men Type: BLOOD SPECIMENOrdering Facility: [facility] Address: [address] [place] [address] Performed By: #### 2 4323-8 ####[facility] LABCLIA [id number] [place] [address] Protein [Mass/Vol] 6.9 g/dL Normal 6.3-8.0 [facility] Comment on above: Order Comment: Speci men Type: BLOOD SPECIMENOrdering Facility: [facility] Address: [address] [place] [address] Performed By: #### 2 4323-8 ####[facility] LABCLIA [id number] [place] [address] Sodium [Moles/Vol] 139 mmol/L Normal 136-144 [facility] Comment on above: Order Comment: Speci men Type: BLOOD SPECIMENOrdering Facility: [facility] Address: [address] [place] [address] Performed By: #### 2 4323-8 ####[facility] LABCLIA [id number] [place] [address] Urea nitrogen [Mass/Vol] 19 mg/dL Normal 9-24 [facility] Comment on above: Order Comment: Speci men Type: BLOOD SPECIMENOrdering Facility: [facility] Address: [address] [place] [address] Performed By: #### 2 4323-8 ####[facility] LABCLIA [id number] [place] [address] CNPNon 08-18-2023 CNPN Normal [facility] CT ABD/PEL W IVCONon 024 CT ABD/PEL W IVCON Normal [facility] CT Abdomen and Pelvis W cont rast [place] 08-18-2023 IMPRESSION: 1. Again noted is metastatic disease with [...] to marked enlargement of the prostate gland. Transcribe Date/Time: Aug 18 2023 12:55P Dictated by: SHANE MCGOWAN MD This examination was interpreted and the report reviewed and electronically signed by: SHANE MCGOWAN MD on Aug 18 2023 1:07PM EST Thank you for allowing us to participate in the care of your patient. Should there be any questions regarding this interpretation, please call [phone]. If you are unable to reach us at the number above, please feel free to contact [facility] at [phone]. 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 TECHNIQUE: CT of the abdomen and pelvis was performed using standard technique, scanning from just above the dome of the diaphragm to the symphysis pubis. MQ: CTAP_3 Contrast: IV: 130 ml of Omnipaque 300 Oral: 500 ml of Omni 240 10-25ml diluted with water CT Radiation dose: Integrated Dose-length product (DLP) for this visit = 725 mGy*cm. CT Dose Reduction Employed: Automated exposure control (AEC) COMPARISON: CT the abdomen pelvis with contrast from 05/18/2023 RESULT: Liver: No mass. Biliary: No bile duct dilation. Cholecystectomy. Spleen: Multiple benign calcified splenic granulomas. No splenomegaly. Pancreas: Surgical changes compatible with Whipple procedure. Metallic stent is again present within the pancreatic duct. There is mild to moderate pancreatic ductal dilatation throughout the tail of the pancreas is similar to the prior exam. Stable stranding/infiltrative soft tissue surrounding the common hepatic artery. This could be due to infiltrative neoplasm or posttreatment change. Adrenals: No mass. Kidneys: Renal cysts as well as subcentimeter hypodense lesions which are too small to characterize but likely represent cysts. GI tract: Surgical changes compatible with Whipple procedure. Lymph nodes: Again noted are multiple pathologically enlarged lymph nodes. Relatively stable 4.2 x 3.8 cm paraceliac lymph node on slice 48 of series 2. Relatively stable 3.8 x 3.6 cm left para-aortic lymph node. Relatively stable 4.9 x 3.4 cm aortocaval lymph node. Mesentery/Peritoneum: Soft tissue implant anterior to the right kidney, measuring 2.9 x 2.0 cm on slice 58 of series 2. This appears relatively stable. Relatively stable 2.9 x 1.3 cm nodule in the right paracolic gutter on slice 85 of series 2. Pelvis: Small stones layering within the dependent portion of the right urinary bladder. Moderate to marked enlargement of the prostate gland. Bones/Soft Tissues: Degenerative changes. Small fat-containing left inguinal hernia. Relatively stable 1.1 x 0.9 cm subcutaneous nodule along the right anterior abdominal wall on slice 67 of series 2. Lower thorax: A chest CT performed will be reported separately. Cable Installer Repairer Helper (topogram) images: No additional findings. 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 TECHNIQUE: CT of the abdomen and pelvis was performed using standard technique, scanning from just above the dome of the diaphragm to the symphysis pubis. MQ: CTAP_3 Contrast: IV: 130 ml of Omnipaque 300 Oral: 500 ml of Omni 240 10-25ml diluted with water CT Radiation dose: Integrated Dose-length product (DLP) for this visit = 725 mGy*cm. CT Dose Reduction Employed: Automated exposure control (AEC) COMPARISON: CT the abdomen pelvis with contrast from 05/18/2023 RESULT: Liver: No mass. Biliary: No bile duct dilation. Cholecystectomy. Spleen: Multiple benign calcified splenic granulomas. No splenomegaly. Pancreas: Surgical changes compatible with Whipple procedure. Metallic stent is again present within the pancreatic duct. There is mild to moderate pancreatic ductal dilatation throughout the tail of the pancreas is similar to the prior exam. Stable stranding/infiltrative soft tissue surrounding the common hepatic artery. This could be due to infiltrative neoplasm or posttreatment change. Adrenals: No mass. Kidneys: Renal cysts as well as subcentimeter hypodense lesions which are too small to characterize but likely represent cysts. GI tract: Surgical changes compatible with Whipple procedure. Lymph nodes: Again noted are multiple pathologically enlarged lymph nodes. Relatively stable 4.2 x 3.8 cm paraceliac lymph node on slice 48 of series 2. Relatively stable 3.8 x 3.6 cm left para-aortic lymph node. Relatively stable 4.9 x 3.4 cm aortocaval lymph node. Mesentery/Peritoneum: Soft tissue implant anterior to the right kidney, measuring 2.9 x 2.0 cm on slice 58 of series 2. This appears relatively stable. Relatively stable 2.9 x 1.3 cm nodule in the right paracolic gutter on slice 85 of series 2. Pelvis: Small stones layering within the dependent portion of the right urinary bladder. Moderate to marked enlargement of the prostate gland. Bones/Soft Tissues: Degenerative changes. Small fat-containing left inguinal hernia. Relatively stable 1.1 x 0.9 cm subcutaneous nodule along the right anterior abdominal wall on slice 67 of series 2. Lower thorax: A chest CT performed will be reported separately. Cable Installer Repairer Helper (topogram) images: No additional findings. IMPRESSION IMPRESSION: 1. Again noted is metastatic disease with [...] to marked enlargement of the prostate gland. Transcribe Date/Time: Aug 18 2023 12:55P Dictated by: SHANE MCGOWAN MD This examination was interpreted and the report reviewed and electronically signed by: SHANE MCGOWAN MD on Aug 18 2023 1:07PM EST Thank you for allowing us to participate in the care of your patient. Should there be any questions regarding this interpretation, please call [phone]. If you are unable to reach us at the number above, please feel free to contact [facility] at [phone]. [facility] CT CHEST W IVCONon 4 CT [facility] [place] IMPRESSION: 1. Stable subcentimeter pulmonary nodules. 2. Stable nonspecific 8 mm nodule or node in the prevascular space. 3. Stable mild centrilobular nodularity with a tree-in-bud distribution in the lateral right upper lobe and left lower lobe. This appearance is most suggestive of bronchiolitis. Would advise continued attention on follow-up exams. Transcribe Date/Time: Aug 18 2023 1:08P Dictated by: SHANE MCGOWAN MD This examination was interpreted and the report reviewed and electronically signed by: SHANE MCGOWAN MD on Aug 18 2023 1:18PM EST Thank you for allowing us to participate in the care of your patient. Should there be any questions regarding this interpretation, please call [phone]. If you are unable to reach us at the number above, please feel free to contact [facility] at [phone]. 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 Technique: Spiral CT acquisition of the chest from the thoracic inlet to the upper abdomen following IV contrast. MQ: CTCW_6 Contrast: 130 mL Omnipaque [address] Radiation dose: Integrated Dose-length product (DLP) for this visit = 725 mGy*cm CT Dose Reduction Employed: Automated exposure control (AEC) Comparison: Chest CT with contrast from 05/18/2023 RESULT: Limitations: None. Lines, tubes, and devices: None. Lung parenchyma and airways: Pulmonary nodules are present on series 3. For example, there is a stable 7 mm solid nodule in the anterior right lower lobe on slice 117. Stable 2 mm solid nodule in the anterior left upper lobe on slice 88. Stable 4 mm solid nodule in the posterior left lower lobe on slice 144. Benign calcified granuloma in the right lower lobe. Stable mild centrilobular nodularity with a tree-in-bud distribution in the lateral right upper lobe and left lower lobe. This appearance is most suggestive of bronchiolitis. Would advise continued attention on follow-up exams. Pleural space: No pleural effusion. No pleural thickening. Lower neck, lymph nodes, and mediastinum: No suspicious axillary lymphadenopathy. Stable 8 mm prevascular node/nodule on slice 85 of series 2. Calcified subcarinal and right hilar lymph nodes compatible with old granulomatous disease. Heart, pericardium, and thoracic vessels: Trace pericardial fluid. Mild coronary artery calcification. Bones and soft tissues: No destructive bone lesion. Chest wall is unremarkable. Upper abdomen: A CT of the abdomen and pelvis was performed and will be reported separately. Cable Installer Repairer Helper (topogram) images: No additional findings. DIVISION OF RADIOLOGY Provider, [facility] - 08/18/2023 * * *Final Report* * * DATE OF EXAM: Aug 18 2023 10:27AM [facility] 0539 - CT CHEST W IVCON / PROCEDURE REASON: Malignant neoplasm of head of pancreas (HCC) * * * * Physician Interpretation * * * * RESULT: EXAMINATION: CHEST CT WITH CONTRAST CLINICAL HISTORY: History of pancreatic cancer. Technique: Spiral CT acquisition of the chest from the thoracic inlet to the upper abdomen following IV contrast. MQ: CTCW_6 Contrast: 130 mL Omnipaque [address] Radiation dose: Integrated Dose-length product (DLP) for this visit = 725 mGy*cm CT Dose Reduction Employed: Automated exposure control (AEC) Comparison: Chest CT with contrast from 05/18/2023 RESULT: Limitations: None. Lines, tubes, and devices: None. Lung parenchyma and airways: Pulmonary nodules are present on series 3. For example, there is a stable 7 mm solid nodule in the anterior right lower lobe on slice 117. Stable 2 mm solid nodule in the anterior left upper lobe on slice 88. Stable 4 mm solid nodule in the posterior left lower lobe on slice 144. Benign calcified granuloma in the right lower lobe. Stable mild centrilobular nodularity with a tree-in-bud distribution in the lateral right upper lobe and left lower lobe. This appearance is most suggestive of bronchiolitis. Would advise continued attention on follow-up exams. Pleural space: No pleural effusion. No pleural thickening. Lower neck, lymph nodes, and mediastinum: No suspicious axillary lymphadenopathy. Stable 8 mm prevascular node/nodule on slice 85 of series 2. Calcified subcarinal and right hilar lymph nodes compatible with old granulomatous disease. Heart, pericardium, and thoracic vessels: Trace pericardial fluid. Mild coronary artery calcification. Bones and soft tissues: No destructive bone lesion. Chest wall is unremarkable. Upper abdomen: A CT of the abdomen and pelvis was performed and will be reported separately. Cable Installer Repairer Helper (topogram) images: No additional findings. IMPRESSION IMPRESSION: 1. Stable subcentimeter pulmonary nodules. 2. Stable nonspecific 8 mm nodule or node in the prevascular space. 3. Stable mild centrilobular nodularity with a tree-in-bud distribution in the lateral right upper lobe and left lower lobe. This appearance is most suggestive of bronchiolitis. Would advise continued attention on follow-up exams. Transcribe Date/Time: Aug 18 2023 1:08P Dictated by: SHANE MCGOWAN MD This examination was interpreted and the report reviewed and electronically signed by: SHANE MCGOWAN MD on Aug 18 2023 1:18PM EST Thank you for allowing us to participate in the care of your patient. Should there be any questions regarding this interpretation, please call [phone]. If you are unable to reach us at the number above, please feel free to contact [facility] at [phone]. [facility] CT Chest W contrast IVOrdere d By: [facility] Provider on 08-18-2023 [facility] No Panel Informationon 08-17 Radiology Study observation (narrative) [facility] CNPNon 08-09-2023 CNPN Normal [facility] CBC W Auto Differential pane l (Bld)on 08-02-2023 Basophils (Bld) [#/Vol] <0.11 k/uL [facility] Basophils/100 WBC (Bld) 0.4 % [facility] Differential cell count method Nom (Bld) Auto [facility] Eosinophils (Bld) [#/Vol] 0.07 10*3/uL <0.46 k/uL [facility] Eosinophils/100 WBC (Bld) 1.3 % [facility] Erythrocyte distribution width (RBC) [Ratio] 17.4 % High 11.5 - 15.0 % [facility] Hematocrit (Bld) [Volume fraction] 31.6 % Low 39.0 - 51.0 % [facility] Hemoglobin (Bld) [Mass/Vol] 10.3 g/dL Low 13.0 - 17.0 g/dL [facility] Immature granulocytes (Bld) [#/Vol] <0.10 k/uL [facility] Immature granulocytes/100 WBC (Bld) 0.4 % [facility] Lymphocytes (Bld) [#/Vol] 1.29 10*3/uL 1.00 - 4.00 k/uL [facility] Lymphocytes/100 WBC (Bld) 24.0 % [facility] MCH (RBC) [Entitic mass] 34.0 pg 26.0 - 34.0 pg [facility] MCHC (RBC) [Mass/Vol] 32.6 g/dL 30.5 - 36.0 g/dL [facility] MCV (RBC) [Entitic vol] 104.3 fL High 80.0 - 100.0 fL [facility] Monocytes (Bld) [#/Vol] 0.48 10*3/uL <0.87 k/uL [facility] Monocytes/100 WBC (Bld) 8.9 % [facility] Neutrophils (Bld) [#/Vol] 3.50 10*3/uL 1.45 - 7.50 k/uL [facility] Neutrophils/100 WBC (Bld) 65.0 % [facility] Nucleated RBC (Bld) [#/Vol] <0.01 k/uL [facility] Nucleated RBC/100 WBC (Bld) [Ratio] 0.0 /100 WBC [facility] Platelet mean volume (Bld) [Entitic vol] 9.2 fL 9.0 - 12.7 fL [facility] Platelets (Bld) [#/Vol] 224 10*3/uL 150 - 400 k/uL [facility] RBC (Bld) [#/Vol] 3.03 10*6/uL Low 4.20 - 6.0 0 m/uL [facility] WBC (Bld) [#/Vol] 5.38 10*3/uL 3.70 - 11.00 k/uL [facility] Basophils (Bld) [#/Vol] 10*3/uL Normal <0.11 [facility] Comment on above: Order Comment: Speci men Type: BLOOD SPECIMENOrdering Facility: [facility] Address: [address] [place] [address] Performed By: #### 5 7021-8 ####[facility] LABCLIA [id number] [place] [address] Basophils/100 WBC (Bld) 0.4 % Normal [facility] Comment on above: Order Comment: Speci men Type: BLOOD SPECIMENOrdering Facility: [facility] Address: [address] [place] [address] Performed By: #### 5 7021-8 ####[facility] LABCLIA [id number] [place] [address] Differential cell count method Nom (Bld) Auto Normal [facility] Comment on above: Order Comment: Speci men Type: BLOOD SPECIMENOrdering Facility: [facility] Address: [address] [place] [address] Performed By: #### 5 7021-8 ####[facility] LABCLIA [id number] [place] [address] Eosinophils (Bld) [#/Vol] 0.07 10*3/uL Normal <0.46 [facility] Comment on above: Order Comment: Speci men Type: BLOOD SPECIMENOrdering Facility: [facility] Address: [address] [place] [address] Performed By: #### 5 7021-8 ####[facility] LABCLIA [id number] [place] [address] Eosinophils/100 WBC (Bld) 1.3 % Normal [facility] Comment on above: Order Comment: Speci men Type: BLOOD SPECIMENOrdering Facility: [facility] Address: [address] [place] [address] Performed By: #### 5 7021-8 ####[facility] LABCLIA [id number] [place] [address] Erythrocyte distribution width (RBC) [Ratio] 17.4 % High 11.5-15.0 [facility] Comment on above: Order Comment: Speci men Type: BLOOD SPECIMENOrdering Facility: [facility] Address: [address] [place] [address] Performed By: #### 5 7021-8 ####[facility] LABCLIA [id number] [place] [address] Hematocrit (Bld) [Volume fraction] 31.6 % Low 39.0-51.0 [facility] Comment on above: Order Comment: Speci men Type: BLOOD SPECIMENOrdering Facility: [facility] Address: [address] [place] [address] Performed By: #### 5 7021-8 ####[facility] LABCLIA [id number] [place] [address] Hemoglobin (Bld) [Mass/Vol] 10.3 g/dL Low 13.0-17.0 [facility] Comment on above: Order Comment: Speci men Type: BLOOD SPECIMENOrdering Facility: [facility] Address: [address] [place] [address] Performed By: #### 5 7021-8 ####[facility] LABCLIA [id number] [place] [address] Immature granulocytes (Bld) [#/Vol] 10*3/uL Normal <0.10 [facility] Comment on above: Order Comment: Speci men Type: BLOOD SPECIMENOrdering Facility: [facility] Address: [address] [place] [address] Performed By: #### 5 7021-8 ####[facility] LABCLIA [id number] [place] [address] Immature granulocytes/100 WBC (Bld) 0.4 % Normal [facility] Comment on above: Order Comment: Speci men Type: BLOOD SPECIMENOrdering Facility: [facility] Address: [address] [place] [address] Performed By: #### 5 7021-8 ####[facility] LABCLIA [id number] [place] [address] Lymphocytes (Bld) [#/Vol] 1.29 10*3/uL Normal 1.00-4.00 [facility] Comment on above: Order Comment: Speci men Type: BLOOD SPECIMENOrdering Facility: [facility] Address: [address] [place] [address] Performed By: #### 5 7021-8 ####[facility] LABIA [id number] [place] [address] Lymphocytes/100 WBC (Bld) 24.0 % Normal [facility] Comment on above: Order Comment: Speci men Type: BLOOD SPECIMENOrdering Facility: [facility] Address: [address] [place] [address] Performed By: #### 5 7021-8 ####[facility] LABCLIA [id number] [place] [address] MCH (RBC) [Entitic mass] 34.0 pg Normal 26.0-34.0 [facility] Comment on above: Order Comment: Speci men Type: BLOOD SPECIMENOrdering Facility: [facility] Address: [address] [place] [address] Performed By: #### 5 7021-8 ####[facility] LABCLIA [id number] [place] [address] MCHC (RBC) [Mass/Vol] 32.6 g/dL Normal 30.5-36.0 [facility] Comment on above: Order Comment: Speci men Type: BLOOD SPECIMENOrdering Facility: [facility] Address: [address] [place] [address] Performed By: #### 5 7021-8 ####[facility] LABCLIA [id number] [place] [address] MCV (RBC) [Entitic vol] 104.3 fL High 80.0-100.0 [facility] Comment on above: Order Comment: Speci men Type: BLOOD SPECIMENOrdering Facility: [facility] Address: [address] [place] [address] Performed By: #### 5 7021-8 ####[facility] LABCLIA [id number] [place] [address] Monocytes (Bld) [#/Vol] 0.48 10*3/uL Normal <0.87 [facility] Comment on above: Order Comment: Speci men Type: BLOOD SPECIMENOrdering Facility: [facility] Address: [address] [place] [address] Performed By: #### 5 7021-8 ####[facility] LABCLIA [id number] [place] [address] Monocytes/100 WBC (Bld) 8.9 % Normal [facility] Comment on above: Order Comment: Speci men Type: BLOOD SPECIMENOrdering Facility: [facility] Address: [address] [place] [address] Performed By: #### 5 7021-8 ####[facility] LABCLIA [id number] [place] [address] Neutrophils (Bld) [#/Vol] 3.50 10*3/uL Normal 1.45-7.50 [facility] Comment on above: Order Comment: Speci men Type: BLOOD SPECIMENOrdering Facility: [facility] Address: [address] [place] [address] Performed By: #### 5 7021-8 ####[facility] LABCLIA [id number] [place] [address] Neutrophils/100 WBC (Bld) 65.0 % Normal [facility] Comment on above: Order Comment: Speci men Type: BLOOD SPECIMENOrdering Facility: [facility] Address: [address] [place] [address] Performed By: #### 5 7021-8 ####[facility] LABCLIA [id number] [place] [address] Nucleated RBC (Bld) [#/Vol] 10*3/uL Normal <0.01 [facility] Comment on above: Order Comment: Speci men Type: BLOOD SPECIMENOrdering Facility: [facility] Address: [address] [place] [address] Performed By: #### 5 7021-8 ####[facility] LABCLIA [id number] [place] [address] Nucleated RBC/100 WBC (Bld) [Ratio] 0.0 /100 WBC Normal [facility] Comment on above: Order Comment: Speci men Type: BLOOD SPECIMENOrdering Facility: [facility] Address: [address] [place] [address] Performed By: #### 5 7021-8 ####[facility] LABCLIA [id number] [place] [address] Platelet mean volume (Bld) [Entitic vol] 9.2 fL Normal 9.0-12.7 [facility] Comment on above: Order Comment: Speci men Type: BLOOD SPECIMENOrdering Facility: [facility] Address: [address] [place] [address] Performed By: #### 5 7021-8 ####[facility] LABCLIA [id number] [place] [address] Platelets (Bld) [#/Vol] 224 10*3/uL Normal 150-400 [facility] Comment on above: Order Comment: Speci men Type: BLOOD SPECIMENOrdering Facility: [facility] Address: [address] [place] [address] Performed By: #### 5 7021-8 ####[facility] LABCLIA [id number] [place] [address] RBC (Bld) [#/Vol] 3.03 10*6/uL Low 4.20-6.00 [facility] Comment on above: Order Comment: Speci men Type: BLOOD SPECIMENOrdering Facility: [facility] Address: [address] [place] [address] Performed By: #### 5 7021-8 ####[facility] LABIA [id number] [place] [address] WBC (Bld) [#/Vol] 5.38 10*3/uL Normal 3.70-11.00 [facility] Comment on above: Order Comment: Speci men Type: BLOOD SPECIMENOrdering Facility: [facility] Address: [address] [place] [address] Performed By: #### 5 7021-8 ####[facility] LABIA [id number] [place] [address] CNOVSPon 08-02-2023 CNOVSP Normal [facility] Cancer Ag19-9 SerPl-aCncon 0 08-02-2023 Cancer Ag 19-9 Qn 1844.0 [arb'U]/mL High <36.0 [facility] Comment on above: Order Comment: Speci men Type: BLOOD SPECIMENOrdering Facility: [facility] Address: [address] [place] [address] Result Comment: Can er antigen 19-9 test is used as an aid in monitoring response to treatment or recurrence in patients with established pancreatic, hepatobiliary, or gastrointestinal malignancies. Clinical correlation is required.The CA 19-9 Antigen test was performed using the Flyrel DXI paramagnetic particle chemiluminescent immunoassay method. Results obtained with different assay methods or kits cannot be used interchangeably. Performed By: #### 2 4108-3 ####[facility] LABCLIA [id number] [place] [address] [place] Comprehensive metabolic 2000 panelon 08-02-2023 Albumin [Mass/Vol] 3.9 g/dL 3.9 - 4.9 g/dL [facility] ALP [Catalytic activity/Vol] 137 U/L High 38 - 113 U/L [facility] ALT [Catalytic activity/Vol] 12 U/L 10 - 54 U/L [facility] Anion gap [Moles/Vol] 10 mmol/L 9 - 18 mmol/L [facility] AST [Catalytic activity/Vol] 13 U/L Low 14 - 40 U/L [facility] Bilirubin [Mass/Vol] 1.0 mg/dL 0.2 - 1 .3 mg/dL [facility] Calcium [Mass/Vol] 10.4 mg/dL High 8.5 - 10. 2 mg/dL [facility] Chloride [Moles/Vol] 105 mmol/L 97 - 10 5 mmol/L [facility] CO2 [Moles/Vol] 24 mmol/L 22 - 30 mmol/L [facility] Creatinine [Mass/Vol] 0.86 mg/dL 0.73 - 1.22 mg/dL [facility] Estimated Glomerular Filtration Rate 92 mL/min/1.73m >=60 mL/min/1.73 m [facility] Glucose [Mass/Vol] 149 mg/dL High 74 - 99 mg/dL [facility] Potassium [Moles/Vol] 4.0 mmol/L 3.7 - 5.1 mmol/L [facility] Protein [Mass/Vol] 6.5 g/dL 6.3 - 8.0 g/dL [facility] Sodium [Moles/Vol] 139 mmol/L 136 - 144 mmol/L [facility] Urea nitrogen [Mass/Vol] 20 mg/dL 9 - 24 mg/dL [facility] Albumin [Mass/Vol] 3.9 g/dL Normal 3.9-4.9 [facility] Comment on above: Order Comment: Speci men Type: BLOOD SPECIMENOrdering Facility: [facility] Address: [address] [place] [address] Performed By: #### 2 4323-8 ####[facility] LABCLIA [id number] [place] [address] ALP [Catalytic activity/Vol] 137 U/L High 38-113 [facility] Comment on above: Order Comment: Speci men Type: BLOOD SPECIMENOrdering Facility: [facility] Address: [address] [place] [address] Performed By: #### 2 4323-8 ####[facility] LABCLIA [id number] [place] [address] ALT [Catalytic activity/Vol] 12 U/L Normal 10-54 [facility] Comment on above: Order Comment: Speci men Type: BLOOD SPECIMENOrdering Facility: [facility] Address: [address] [place] [address] Performed By: #### 2 4323-8 ####[facility] LABCLIA [id number] [place] [address] Anion gap [Moles/Vol] 10 mmol/L Normal 9-18 [facility] Comment on above: Order Comment: Speci men Type: BLOOD SPECIMENOrdering Facility: [facility] Address: [address] [place] [address] Performed By: #### 2 4323-8 ####[facility] LABCLIA [id number] [place] [address] AST [Catalytic activity/Vol] 13 U/L Low 14-40 [facility] Comment on above: Order Comment: Speci men Type: BLOOD SPECIMENOrdering Facility: [facility] Address: [address] [place] [address] Performed By: #### 2 4323-8 ####[facility] LABCLIA [id number] [place] [address] Bilirubin [Mass/Vol] 1.0 mg/dL Normal 0.2-1.3 [facility] Comment on above: Order Comment: Speci men Type: BLOOD SPECIMENOrdering Facility: [facility] Address: [address] [place] [address] Performed By: #### 2 4323-8 ####[facility] LABCLIA [id number] [place] [address] Calcium [Mass/Vol] 10.4 mg/dL High 8.5-10.2 [facility] Comment on above: Order Comment: Speci men Type: BLOOD SPECIMENOrdering Facility: [facility] Address: [address] [place] [address] Performed By: #### 2 4323-8 ####[facility] LABCLIA [id number] [place] [address] Chloride [Moles/Vol] 105 mmol/L Normal 97-105 [facility] Comment on above: Order Comment: Speci men Type: BLOOD SPECIMENOrdering Facility: [facility] Address: [address] [place] [address] Performed By: #### 2 4323-8 ####[facility] LABCLIA [id number] [place] [address] CO2 [Moles/Vol] 24 mmol/L Normal 22-30 [facility] Comment on above: Order Comment: Speci men Type: BLOOD SPECIMENOrdering Facility: [facility] Address: [address] [place] [address] Performed By: #### 2 4323-8 ####[facility] LABCLIA [id number] [place] [address] Creatinine [Mass/Vol] 0.86 mg/dL Normal 0.73-1.22 [facility] Comment on above: Order Comment: Speci men Type: BLOOD SPECIMENOrdering Facility: [facility] Address: [address] [place] [address] Performed By: #### 2 4323-8 ####[facility] LABCLIA [id number] [place] [address] Creatinine and Glomerular filtration rate.predicted panel (S/P/Bld) 92 mL/min/1.73m??? Normal >=60 [facility] Comment on above: Order Comment: Noemí hoff Type: BLOOD SPECIMENOrdering Facility: [facility] Address: [address] [id number] Result Comment: Kathy mated Glomerular Filtration Rate [...] actual GFR. Performed By: #### 2 4323-8 ####[facility] LABCLIA [id number] [place] [address] Glucose [Mass/Vol] 149 mg/dL High 74-99 [facility] Comment on above: Order Comment: Noemí hoff Type: BLOOD SPECIMENOrdering Facility: [facility] Address: [address] [id number] Result Comment: The [place] [employer] (ADA) provides guidance for cutoff [...] Standards of Medical Care in Diabetes 2016, [place] [employer]. Diabetes Care. 2016.39(Suppl 1). Performed By: #### 2 4323-8 ####[facility] LABCLIA [id number] [place] [address] Potassium [Moles/Vol] 4.0 mmol/L Normal 3.7-5.1 [facility] Comment on above: Order Comment: Noemí hoff Type: BLOOD SPECIMENOrdering Facility: [facility] Address: [address] [place] [address] Performed By: #### 2 4323-8 ####[facility] LABCLIA [id number] [place] [address] Protein [Mass/Vol] 6.5 g/dL Normal 6.3-8.0 [facility] Comment on above: Order Comment: Speci men Type: BLOOD SPECIMENOrdering Facility: [facility] Address: [address] [place] [address] Performed By: #### 2 4323-8 ####[facility] LABCLIA [id number] [place] [address] Sodium [Moles/Vol] 139 mmol/L Normal 136-144 [facility] Comment on above: Order Comment: Speci men Type: BLOOD SPECIMENOrdering Facility: [facility] Address: [address] [place] [address] Performed By: #### 2 4323-8 ####[facility] LABCLIA [id number] [place] [address] Urea nitrogen [Mass/Vol] 20 mg/dL Normal 9-24 [facility] Comment on above: Order Comment: Speci men Type: BLOOD SPECIMENOrdering Facility: [facility] Address: [address] [place] [address] Performed By: #### 2 4323-8 ####[facility] LABCLIA [id number] [place] [address] CBC W Auto Differential pane l (Bld)on 07-19-2023 Basophils (Bld) [#/Vol] 0.04 10*3/uL <0.11 k/uL [facility] Basophils/100 WBC (Bld) 0.7 % [facility] Differential cell count method Nom (Bld) Auto [facility] Eosinophils (Bld) [#/Vol] 0.09 10*3/uL <0.46 k/uL [facility] Eosinophils/100 WBC (Bld) 1.5 % [facility] Erythrocyte distribution width (RBC) [Ratio] 17.9 % High 11.5 - 15.0 % [facility] Hematocrit (Bld) [Volume fraction] 32.0 % Low 39.0 - 51.0 % [facility] Hemoglobin (Bld) [Mass/Vol] 10.5 g/dL Low 13.0 - 17.0 g/dL [facility] Immature granulocytes (Bld) [#/Vol] 0.03 10*3/uL <0.10 k/uL [facility] Immature granulocytes/100 WBC (Bld) 0.5 % [facility] Lymphocytes (Bld) [#/Vol] 1.44 10*3/uL 1.00 - 4.00 k/uL [facility] Lymphocytes/100 WBC (Bld) 24.2 % [facility] MCH (RBC) [Entitic mass] 33.9 pg 26.0 - 34.0 pg [facility] MCHC (RBC) [Mass/Vol] 32.8 g/dL 30.5 - 36.0 g/dL [facility] MCV (RBC) [Entitic vol] 103.2 fL High 80.0 - 100.0 fL [facility] Monocytes (Bld) [#/Vol] 0.46 10*3/uL <0.87 k/uL [facility] Monocytes/100 WBC (Bld) 7.7 % [facility] Neutrophils (Bld) [#/Vol] 3.90 10*3/uL 1.45 - 7.50 k/uL [facility] Neutrophils/100 WBC (Bld) 65.4 % [facility] Nucleated RBC (Bld) [#/Vol] <0.01 k/uL [facility] Nucleated RBC/100 WBC (Bld) [Ratio] 0.0 /100 WBC [facility] Platelet mean volume (Bld) [Entitic vol] 9.5 fL 9.0 - 12.7 fL [facility] Platelets (Bld) [#/Vol] 231 10*3/uL 150 - 400 k/uL [facility] RBC (Bld) [#/Vol] 3.10 10*6/uL Low 4.20 - 6.0 0 m/uL [facility] WBC (Bld) [#/Vol] 5.96 10*3/uL 3.70 - 11.00 k/uL [facility] Basophils (Bld) [#/Vol] 0.04 10*3/uL Normal <0.11 [facility] Comment on above: Order Comment: Speci men Type: BLOOD SPECIMENOrdering Facility: [facility] Address: [address] [place] [address] Performed By: #### 5 7021-8 ####[facility] LABCLIA [id number] [place] [address] Basophils/100 WBC (Bld) 0.7 % Normal [facility] Comment on above: Order Comment: Speci men Type: BLOOD SPECIMENOrdering Facility: [facility] Address: [address] [place] [address] Performed By: #### 5 7021-8 ####[facility] LABCLIA [id number] [place] [address] Differential cell count method Nom (Bld) Auto Normal [facility] Comment on above: Order Comment: Speci men Type: BLOOD SPECIMENOrdering Facility: [facility] Address: [address] [place] [address] Performed By: #### 5 7021-8 ####[facility] LABCLIA [id number] [place] [address] Eosinophils (Bld) [#/Vol] 0.09 10*3/uL Normal <0.46 [facility] Comment on above: Order Comment: Speci men Type: BLOOD SPECIMENOrdering Facility: [facility] Address: [address] [place] [address] Performed By: #### 5 7021-8 ####[facility] LABCLIA [id number] [place] [address] Eosinophils/100 WBC (Bld) 1.5 % Normal [facility] Comment on above: Order Comment: Speci men Type: BLOOD SPECIMENOrdering Facility: [facility] Address: [address] [place] [address] Performed By: #### 5 7021-8 ####[facility] LABCLIA [id number] [place] [address] Erythrocyte distribution width (RBC) [Ratio] 17.9 % High 11.5-15.0 [facility] Comment on above: Order Comment: Speci men Type: BLOOD SPECIMENOrdering Facility: [facility] Address: [address] [place] [address] Performed By: #### 5 7021-8 ####[facility] LABCLIA [id number] [place] [address] Hematocrit (Bld) [Volume fraction] 32.0 % Low 39.0-51.0 [facility] Comment on above: Order Comment: Speci men Type: BLOOD SPECIMENOrdering Facility: [facility] Address: [address] [place] [address] Performed By: #### 5 7021-8 ####[facility] LABCLIA [id number] [place] [address] Hemoglobin (Bld) [Mass/Vol] 10.5 g/dL Low 13.0-17.0 [facility] Comment on above: Order Comment: Speci men Type: BLOOD SPECIMENOrdering Facility: [facility] Address: [address] [place] [address] Performed By: #### 5 7021-8 ####[facility] LABCLIA [id number] [place] [address] Immature granulocytes (Bld) [#/Vol] 0.03 10*3/uL Normal <0.10 [facility] Comment on above: Order Comment: Speci men Type: BLOOD SPECIMENOrdering Facility: [facility] Address: [address] [place] [address] Performed By: #### 5 7021-8 ####[facility] LABIA [id number] [place] [address] Immature granulocytes/100 WBC (Bld) 0.5 % Normal [facility] Comment on above: Order Comment: Speci men Type: BLOOD SPECIMENOrdering Facility: [facility] Address: [address] [place] [address] Performed By: #### 5 7021-8 ####[facility] LABCLIA [id number] [place] [address] Lymphocytes (Bld) [#/Vol] 1.44 10*3/uL Normal 1.00-4.00 [facility] Comment on above: Order Comment: Speci men Type: BLOOD SPECIMENOrdering Facility: [facility] Address: [address] [place] [address] Performed By: #### 5 7021-8 ####[facility] LABCLIA [id number] [place] [address] Lymphocytes/100 WBC (Bld) 24.2 % Normal [facility] Comment on above: Order Comment: Speci men Type: BLOOD SPECIMENOrdering Facility: [facility] Address: [address] [place] [address] Performed By: #### 5 7021-8 ####[facility] LABCLIA [id number] [place] [address] MCH (RBC) [Entitic mass] 33.9 pg Normal 26.0-34.0 [facility] Comment on above: Order Comment: Speci men Type: BLOOD SPECIMENOrdering Facility: [facility] Address: [address] [place] [address] Performed By: #### 5 7021-8 ####[facility] LABCLIA [id number] [place] [address] MCHC (RBC) [Mass/Vol] 32.8 g/dL Normal 30.5-36.0 [facility] Comment on above: Order Comment: Speci men Type: BLOOD SPECIMENOrdering Facility: [facility] Address: [address] [place] [address] Performed By: #### 5 7021-8 ####[facility] LABCLIA [id number] [place] [address] MCV (RBC) [Entitic vol] 103.2 fL High 80.0-100.0 [facility] Comment on above: Order Comment: Speci men Type: BLOOD SPECIMENOrdering Facility: [facility] Address: [address] [place] [address] Performed By: #### 5 7021-8 ####[facility] LABCLIA [id number] [place] [address] Monocytes (Bld) [#/Vol] 0.46 10*3/uL Normal <0.87 [facility] Comment on above: Order Comment: Speci men Type: BLOOD SPECIMENOrdering Facility: [facility] Address: [address] [place] [address] Performed By: #### 5 7021-8 ####[facility] LABCLIA [id number] [place] [address] Monocytes/100 WBC (Bld) 7.7 % Normal [facility] Comment on above: Order Comment: Speci men Type: BLOOD SPECIMENOrdering Facility: [facility] Address: [address] [place] [address] Performed By: #### 5 7021-8 ####[facility] LABCLIA [id number] [place] [address] Neutrophils (Bld) [#/Vol] 3.90 10*3/uL Normal 1.45-7.50 [facility] Comment on above: Order Comment: Speci men Type: BLOOD SPECIMENOrdering Facility: [facility] Address: [address] [place] [address] Performed By: #### 5 7021-8 ####[facility] LABCLIA [id number] [place] [address] Neutrophils/100 WBC (Bld) 65.4 % Normal [facility] Comment on above: Order Comment: Speci men Type: BLOOD SPECIMENOrdering Facility: [facility] Address: [address] [place] [address] Performed By: #### 5 7021-8 ####[facility] LABCLIA [id number] [place] [address] Nucleated RBC (Bld) [#/Vol] 10*3/uL Normal <0.01 [facility] Comment on above: Order Comment: Speci men Type: BLOOD SPECIMENOrdering Facility: [facility] Address: [address] [place] [address] Performed By: #### 5 7021-8 ####[facility] LABCLIA [id number] [place] [address] Nucleated RBC/100 WBC (Bld) [Ratio] 0.0 /100 WBC Normal [facility] Comment on above: Order Comment: Speci men Type: BLOOD SPECIMENOrdering Facility: [facility] Address: [address] [place] [address] Performed By: #### 5 7021-8 ####[facility] LABCLIA [id number] [place] [address] Platelet mean volume (Bld) [Entitic vol] 9.5 fL Normal 9.0-12.7 [facility] Comment on above: Order Comment: Speci men Type: BLOOD SPECIMENOrdering Facility: [facility] Address: [address] [place] [address] Performed By: #### 5 7021-8 ####[facility] LABCLIA [id number] [place] [address] Platelets (Bld) [#/Vol] 231 10*3/uL Normal 150-400 [facility] Comment on above: Order Comment: Speci men Type: BLOOD SPECIMENOrdering Facility: [facility] Address: [address] [place] [address] Performed By: #### 5 7021-8 ####[facility] LABCLIA [id number] [place] [address] RBC (Bld) [#/Vol] 3.10 10*6/uL Low 4.20-6.00 [facility] Comment on above: Order Comment: Speci men Type: BLOOD SPECIMENOrdering Facility: [facility] Address: [address] [place] [address] Performed By: #### 5 7021-8 ####[facility] LABCLIA [id number] [place] [address] WBC (Bld) [#/Vol] 5.96 10*3/uL Normal 3.70-11.00 [facility] Comment on above: Order Comment: Speci men Type: BLOOD SPECIMENOrdering Facility: [facility] Address: [address] [place] [address] Performed By: #### 5 7021-8 ####[facility] LABIA [id number] [place] [address] CNCNPATEDon 07-19-2023 CNCNPATED Normal [facility] CNOVSPon 07-19-2023 CNOVSP Normal [facility] Comprehensive metabolic 2000 panelon 07-19-2023 Albumin [Mass/Vol] 3.8 g/dL Low 3.9 - 4.9 g/dL [facility] ALP [Catalytic activity/Vol] 136 U/L High 38 - 113 U/L [facility] ALT [Catalytic activity/Vol] 29 U/L 10 - 54 U/L [facility] Anion gap [Moles/Vol] 11 mmol/L 9 - 18 mmol/L [facility] AST [Catalytic activity/Vol] 24 U/L 14 - 40 U/L [facility] Bilirubin [Mass/Vol] 1.2 mg/dL 0.2 - 1 .3 mg/dL [facility] Calcium [Mass/Vol] 10.7 mg/dL High 8.5 - 10. 2 mg/dL [facility] Chloride [Moles/Vol] 106 mmol/L High 97 - 10 5 mmol/L [facility] CO2 [Moles/Vol] 22 mmol/L 22 - 30 mmol/L [facility] Creatinine [Mass/Vol] 0.83 mg/dL 0.73 - 1.22 mg/dL [facility] Estimated Glomerular Filtration Rate 93 mL/min/1.73m >=60 mL/min/1.73 m [facility] Glucose [Mass/Vol] 152 mg/dL High 74 - 99 mg/dL [facility] Potassium [Moles/Vol] 3.7 mmol/L 3.7 - 5.1 mmol/L [facility] Protein [Mass/Vol] 6.3 g/dL 6.3 - 8.0 g/dL [facility] Sodium [Moles/Vol] 139 mmol/L 136 - 144 mmol/L [facility] Urea nitrogen [Mass/Vol] 14 mg/dL 9 - 24 mg/dL [facility] Albumin [Mass/Vol] 3.8 g/dL Low 3.9-4.9 [facility] Comment on above: Order Comment: Speci men Type: BLOOD SPECIMENOrdering Facility: [facility] Address: [address] [place] [address] Performed By: #### 2 4323-8 ####[facility] LABCLIA [id number] [place] [address] ALP [Catalytic activity/Vol] 136 U/L High 38-113 [facility] Comment on above: Order Comment: Speci men Type: BLOOD SPECIMENOrdering Facility: [facility] Address: [address] [place] [address] Performed By: #### 2 4323-8 ####[facility] LABCLIA [id number] [place] [address] ALT [Catalytic activity/Vol] 29 U/L Normal 10-54 [facility] Comment on above: Order Comment: Speci men Type: BLOOD SPECIMENOrdering Facility: [facility] Address: [address] [place] [address] Performed By: #### 2 4323-8 ####[facility] LABCLIA [id number] [place] [address] Anion gap [Moles/Vol] 11 mmol/L Normal 9-18 [facility] Comment on above: Order Comment: Speci men Type: BLOOD SPECIMENOrdering Facility: [facility] Address: [address] [place] [address] Performed By: #### 2 4323-8 ####[facility] LABCLIA [id number] [place] [address] AST [Catalytic activity/Vol] 24 U/L Normal 14-40 [facility] Comment on above: Order Comment: Speci men Type: BLOOD SPECIMENOrdering Facility: [facility] Address: [address] [place] [address] Performed By: #### 2 4323-8 ####[facility] LABCLIA [id number] [place] [address] Bilirubin [Mass/Vol] 1.2 mg/dL Normal 0.2-1.3 [facility] Comment on above: Order Comment: Speci men Type: BLOOD SPECIMENOrdering Facility: [facility] Address: [address] [place] [address] Performed By: #### 2 4323-8 ####[facility] LABCLIA [id number] [place] [address] Calcium [Mass/Vol] 10.7 mg/dL High 8.5-10.2 [facility] Comment on above: Order Comment: Speci men Type: BLOOD SPECIMENOrdering Facility: [facility] Address: [address] [place] [address] Performed By: #### 2 4323-8 ####[facility] LABCLIA [id number] [place] [address] Chloride [Moles/Vol] 106 mmol/L High 97-105 [facility] Comment on above: Order Comment: Speci men Type: BLOOD SPECIMENOrdering Facility: [facility] Address: [address] [place] [address] Performed By: #### 2 4323-8 ####[facility] LABCLIA [id number] [place] [address] CO2 [Moles/Vol] 22 mmol/L Normal 22-30 [facility] Comment on above: Order Comment: Speci men Type: BLOOD SPECIMENOrdering Facility: [facility] Address: [address] [place] [address] [place] [address] Performed By: #### 2 4323-8 ####[facility] LABCLIA [id number] [place] [address] Creatinine [Mass/Vol] 0.83 mg/dL Normal 0.73-1.22 [facility] Comment on above: Order Comment: Speci men Type: BLOOD SPECIMENOrdering Facility: [facility] Address: [address] [place] [address] Performed By: #### 2 4323-8 ####[facility] LABCLIA [id number] [place] [address] Creatinine and Glomerular filtration rate.predicted panel (S/P/Bld) 93 mL/min/1.73m??? Normal >=60 [facility] Comment on above: Order Comment: Speci men Type: BLOOD SPECIMENOrdering Facility: [facility] Address: [address] [place] [address] Result Comment: Kathy mated Glomerular Filtration Rate [...] actual GFR. Performed By: #### 2 4323-8 ####[facility] LABCLIA [id number] [place] [address] Glucose [Mass/Vol] 152 mg/dL High 74-99 [facility] Comment on above: Order Comment: Speci men Type: BLOOD SPECIMENOrdering Facility: [facility] Address: [address] [id number] Result Comment: The [place] [employer] (ADA) provides guidance for cutoff [...] Standards of Medical Care in Diabetes 2016, [place] [employer]. Diabetes Care. 2016.39(Suppl 1). Performed By: #### 2 4323-8 ####[facility] LABCLIA [id number] [place] [address] Potassium [Moles/Vol] 3.7 mmol/L Normal 3.7-5.1 [facility] Comment on above: Order Comment: Speci men Type: BLOOD SPECIMENOrdering Facility: [facility] Address: [address] [place] [address] Performed By: #### 2 4323-8 ####[facility] LABCLIA [id number] [place] [address] Protein [Mass/Vol] 6.3 g/dL Normal 6.3-8.0 [facility] Comment on above: Order Comment: Speci men Type: BLOOD SPECIMENOrdering Facility: [facility] Address: [address] [place] [address] Performed By: #### 2 4323-8 ####[facility] LABCLIA [id number] [place] [address] Sodium [Moles/Vol] 139 mmol/L Normal 136-144 [facility] Comment on above: Order Comment: Speci men Type: BLOOD SPECIMENOrdering Facility: [facility] Address: [address] [place] [address] Performed By: #### 2 4323-8 ####[facility] LABCLIA [id number] [place] [address] Urea nitrogen [Mass/Vol] 14 mg/dL Normal 9-24 [facility] Comment on above: Order Comment: Speci men Type: BLOOD SPECIMENOrdering Facility: [facility] Address: [address] [place] [address] Performed By: #### 2 4323-8 ####[facility] LABCLIA [id number] [place] [address] CBC W Auto Differential pane l (Bld)on 07-05-2023 Basophils (Bld) [#/Vol] 0.04 10*3/uL <0.11 k/uL [facility] Differential cell count method Nom (Bld) Auto [facility] Eosinophils (Bld) [#/Vol] 0.12 10*3/uL <0.46 k/uL [facility] Immature granulocytes (Bld) [#/Vol] <0.10 k/uL [facility] Immature granulocytes/100 WBC (Bld) 0.3 % [facility] Lymphocytes (Bld) [#/Vol] 1.27 10*3/uL 1.00 - 4.00 k/uL [facility] Monocytes (Bld) [#/Vol] 0.41 10*3/uL <0.87 k/uL [facility] Neutrophils (Bld) [#/Vol] 4.04 10*3/uL 1.45 - 7.50 k/uL [facility] Nucleated RBC (Bld) [#/Vol] <0.01 k/uL [facility] Nucleated RBC/100 WBC (Bld) [Ratio] 0.0 /100 WBC [facility] Platelet mean volume (Bld) [Entitic vol] 9.4 fL 9.0 - 12.7 fL [facility] Platelets (Bld) [#/Vol] 211 10*3/uL 150 - 400 k/uL [facility] WBC (Bld) [#/Vol] 5.90 10*3/uL 3.70 - 11.00 k/uL [facility] Basophils (Bld) [#/Vol] 0.04 10*3/uL Normal <0.11 [facility] Comment on above: Order Comment: Speci men Type: BLOOD SPECIMENOrdering Facility: [facility] Address: [address] [place] [address] Performed By: #### 5 7021-8 ####[facility] LABCLIA [id number] [place] [address] Basophils/100 WBC (Bld) 0.7 % Normal [facility] Comment on above: Order Comment: Speci men Type: BLOOD SPECIMENOrdering Facility: [facility] Address: [address] [place] [address] Performed By: #### 5 7021-8 ####[facility] LABCLIA [id number] [place] [address] Differential cell count method Nom (Bld) Auto Normal [facility] Comment on above: Order Comment: Speci men Type: BLOOD SPECIMENOrdering Facility: [facility] Address: [address] [place] [address] Performed By: #### 5 7021-8 ####[facility] LABCLIA [id number] [place] [address] Eosinophils (Bld) [#/Vol] 0.12 10*3/uL Normal <0.46 [facility] Comment on above: Order Comment: Speci men Type: BLOOD SPECIMENOrdering Facility: [facility] Address: [address] [place] [address] Performed By: #### 5 7021-8 ####[facility] LABCLIA [id number] [place] [address] Eosinophils/100 WBC (Bld) 2.0 % Normal [facility] Comment on above: Order Comment: Speci men Type: BLOOD SPECIMENOrdering Facility: [facility] Address: [address] [place] [address] Performed By: #### 5 7021-8 ####[facility] LABCLIA [id number] [place] [address] Erythrocyte distribution width (RBC) [Ratio] 17.7 % High 11.5-15.0 [facility] Comment on above: Order Comment: Speci men Type: BLOOD SPECIMENOrdering Facility: [facility] Address: [address] [place] [address] Performed By: #### 5 7021-8 ####[facility] LABCLIA [id number] [place] [address] Hematocrit (Bld) [Volume fraction] 32.0 % Low 39.0-51.0 [facility] Comment on above: Order Comment: Speci men Type: BLOOD SPECIMENOrdering Facility: [facility] Address: [address] [place] [address] Performed By: #### 5 7021-8 ####[facility] LABCLIA [id number] [place] [address] Hemoglobin (Bld) [Mass/Vol] 10.6 g/dL Low 13.0-17.0 [facility] Comment on above: Order Comment: Speci men Type: BLOOD SPECIMENOrdering Facility: [facility] Address: [address] [place] [address] Performed By: #### 5 7021-8 ####[facility] LABIA [id number] [place] [address] Immature granulocytes (Bld) [#/Vol] 10*3/uL Normal <0.10 [facility] Comment on above: Order Comment: Speci men Type: BLOOD SPECIMENOrdering Facility: [facility] Address: [address] [place] [address] Performed By: #### 5 7021-8 ####[facility] LABCLIA [id number] [place] [address] Immature granulocytes/100 WBC (Bld) 0.3 % Normal [facility] Comment on above: Order Comment: Speci men Type: BLOOD SPECIMENOrdering Facility: [facility] Address: [address] [place] [address] Performed By: #### 5 7021-8 ####[facility] LABIA [id number] [place] [address] Lymphocytes (Bld) [#/Vol] 1.27 10*3/uL Normal 1.00-4.00 [facility] Comment on above: Order Comment: Speci men Type: BLOOD SPECIMENOrdering Facility: [facility] Address: [address] [place] [address] Performed By: #### 5 7021-8 ####[facility] LABCLIA [id number] [place] [address] Lymphocytes/100 WBC (Bld) 21.5 % Normal [facility] Comment on above: Order Comment: Speci men Type: BLOOD SPECIMENOrdering Facility: [facility] Address: [address] [place] [address] Performed By: #### 5 7021-8 ####[facility] LABCLIA [id number] [place] [address] MCH (RBC) [Entitic mass] 33.9 pg Normal 26.0-34.0 [facility] Comment on above: Order Comment: Speci men Type: BLOOD SPECIMENOrdering Facility: [facility] Address: [address] [place] [address] Performed By: #### 5 7021-8 ####[facility] LABCLIA [id number] [place] [address] MCHC (RBC) [Mass/Vol] 33.1 g/dL Normal 30.5-36.0 [facility] Comment on above: Order Comment: Speci men Type: BLOOD SPECIMENOrdering Facility: [facility] Address: [address] [place] [address] Performed By: #### 5 7021-8 ####[facility] LABIA [id number] [place] [address] MCV (RBC) [Entitic vol] 102.2 fL High 80.0-100.0 [facility] Comment on above: Order Comment: Speci men Type: BLOOD SPECIMENOrdering Facility: [facility] Address: [address] [place] [address] Performed By: #### 5 7021-8 ####[facility] LABCLIA [id number] [place] [address] Monocytes (Bld) [#/Vol] 0.41 10*3/uL Normal <0.87 [facility] Comment on above: Order Comment: Speci men Type: BLOOD SPECIMENOrdering Facility: [facility] Address: [address] [place] [address] Performed By: #### 5 7021-8 ####[facility] LABCLIA [id number] [place] [address] Monocytes/100 WBC (Bld) 6.9 % Normal [facility] Comment on above: Order Comment: Speci men Type: BLOOD SPECIMENOrdering Facility: [facility] Address: [address] [place] [address] Performed By: #### 5 7021-8 ####[facility] LABCLIA [id number] [place] [address] Neutrophils (Bld) [#/Vol] 4.04 10*3/uL Normal 1.45-7.50 [facility] Comment on above: Order Comment: Speci men Type: BLOOD SPECIMENOrdering Facility: [facility] Address: [address] [place] [address] Performed By: #### 5 7021-8 ####[facility] LABCLIA [id number] [place] [address] Neutrophils/100 WBC (Bld) 68.6 % Normal [facility] Comment on above: Order Comment: Speci men Type: BLOOD SPECIMENOrdering Facility: [facility] Address: [address] [place] [address] Performed By: #### 5 7021-8 ####[facility] LABCLIA [id number] [place] [address] Nucleated RBC (Bld) [#/Vol] 10*3/uL Normal <0.01 [facility] Comment on above: Order Comment: Speci men Type: BLOOD SPECIMENOrdering Facility: [facility] Address: [address] [place] [address] Performed By: #### 5 7021-8 ####[facility] LABCLIA [id number] [place] [address] Nucleated RBC/100 WBC (Bld) [Ratio] 0.0 /100 WBC Normal [facility] Comment on above: Order Comment: Speci men Type: BLOOD SPECIMENOrdering Facility: [facility] Address: [address] [place] [address] Performed By: #### 5 7021-8 ####[facility] LABCLIA [id number] [place] [address] Platelet mean volume (Bld) [Entitic vol] 9.4 fL Normal 9.0-12.7 [facility] Comment on above: Order Comment: Speci men Type: BLOOD SPECIMENOrdering Facility: [facility] Address: [address] [place] [address] Performed By: #### 5 7021-8 ####[facility] LABCLIA [id number] [place] [address] Platelets (Bld) [#/Vol] 211 10*3/uL Normal 150-400 [facility] Comment on above: Order Comment: Speci men Type: BLOOD SPECIMENOrdering Facility: [facility] Address: [address] [place] [address] Performed By: #### 5 7021-8 ####[facility] LABCLIA [id number] [place] [address] RBC (Bld) [#/Vol] 3.13 10*6/uL Low 4.20-6.00 [facility] Comment on above: Order Comment: Speci men Type: BLOOD SPECIMENOrdering Facility: [facility] Address: [address] [place] [address] Performed By: #### 5 7021-8 ####[facility] LABCLIA [id number] [place] [address] WBC (Bld) [#/Vol] 5.90 10*3/uL Normal 3.70-11.00 [facility] Comment on above: Order Comment: Speci men Type: BLOOD SPECIMENOrdering Facility: [facility] Address: [address] [place] [address] [place], [place] [address] Performed By: #### 5 7021-8 ####[facility] LABCLIA [id number] [place] [address] [facility] CBC W AUTO DIFF BLDon [facility] BASOPHILS # BLD AUTO 0.04 [facility] DIFFERENTIAL METHOD BLD Auto [facility] EOSINOPHIL # BLD AUTO 0.12 [facility] LYMPHOCYTES # BLD AUTO 1.27 [facility] MONOCYTES # BLD AUTO 0.41 [facility] NEUTROPHILS # BLD AUTO 4.04 [facility] NRBC # BLD AUTO <0.01 [facility] NRBC/100 WBC BLD-RTO 0.0 /100 WBC [facility] PLATELET # BLD AUTO 211 [facility] PMV BLD AUTO 9.4 fL 9.0 - 12.7 fL [facility] WBC # BLD AUTO 5.90 [facility] IMM GRANULOCYTES # BLD AUTO <0.03 [facility] IMM GRANULOCYTES/LEUK NFR BLD AUTO 0.3 % [facility] Interpretation and review of laboratory results Abnormal [facility] Specimen Type: BLOOD SPECIMEN [facility] Address: [address] [place] [address] Original Ordering Provider: GRACE NEWBY [facility] CNOVSPon 07-05-2023 CNOVSP Normal [facility] Cancer Ag19-9 SerPl-aCncon 0 07-05-2023 Cancer Ag 19-9 Qn 1918.0 [arb'U]/mL High <36.0 [facility] Comment on above: Order Comment: Speci men Type: BLOOD SPECIMENOrdering Facility: [facility] Address: [address] [place] [address] [place], [place] [address] Result Comment: [facility] er antigen 19-9 test is used [...] used interchangeably. Performed By: #### 2 4108-3 ####[facility] LABCLIA [id number] [address] OF [facility] Comprehensive metabolic 2000 panelon 07-05-2023 Albumin [Mass/Vol] 3.8 g/dL Low 3.9 - 4.9 g/dL [facility] ALP [Catalytic activity/Vol] 128 U/L High 38 - 113 U/L [facility] ALT [Catalytic activity/Vol] 24 U/L 10 - 54 U/L [facility] Anion gap [Moles/Vol] 10 mmol/L 9 - 18 mmol/L [facility] AST [Catalytic activity/Vol] 14 U/L 14 - 40 U/L [facility] Bilirubin [Mass/Vol] 1.3 mg/dL 0.2 - 1 .3 mg/dL [facility] Calcium [Mass/Vol] 10.3 mg/dL High 8.5 - 10. 2 mg/dL [facility] Chloride [Moles/Vol] 106 mmol/L High 97 - 10 5 mmol/L [facility] CO2 [Moles/Vol] 23 mmol/L 22 - 30 mmol/L [facility] Creatinine [Mass/Vol] 0.85 mg/dL 0.73 - 1.22 mg/dL [facility] Estimated Glomerular Filtration Rate 92 mL/min/1.73m >=60 mL/min/1.73 m [facility] Glucose [Mass/Vol] 164 mg/dL High 74 - 99 mg/dL [facility] Potassium [Moles/Vol] 3.6 mmol/L Low 3.7 - 5.1 mmol/L [facility] Protein [Mass/Vol] 6.3 g/dL 6.3 - 8.0 g/dL [facility] Sodium [Moles/Vol] 139 mmol/L 136 - 144 mmol/L [facility] Urea nitrogen [Mass/Vol] 19 mg/dL 9 - 24 mg/dL [facility] Albumin [Mass/Vol] 3.8 g/dL Low 3.9-4.9 [facility] Comment on above: Order Comment: Speci men Type: BLOOD SPECIMENOrdering Facility: [facility] Address: [address] [place] [address] Performed By: #### 2 4323-8 ####[facility] LABCLIA [id number] [place] [address] ALP [Catalytic activity/Vol] 128 U/L High 38-113 [facility] Comment on above: Order Comment: Speci men Type: BLOOD SPECIMENOrdering Facility: [facility] Address: [address] [place] [address] Performed By: #### 2 4323-8 ####[facility] LABCLIA [id number] [place] [address] ALT [Catalytic activity/Vol] 24 U/L Normal 10-54 [facility] Comment on above: Order Comment: Speci men Type: BLOOD SPECIMENOrdering Facility: [facility] Address: [address] [place] [address] Performed By: #### 2 4323-8 ####[facility] LABCLIA [id number] [place] [address] Anion gap [Moles/Vol] 10 mmol/L Normal 9-18 [facility] Comment on above: Order Comment: Speci men Type: BLOOD SPECIMENOrdering Facility: [facility] Address: [address] [place] [address] Performed By: #### 2 4323-8 ####[facility] LABCLIA [id number] [place] [address] AST [Catalytic activity/Vol] 14 U/L Normal 14-40 [facility] Comment on above: Order Comment: Speci men Type: BLOOD SPECIMENOrdering Facility: [facility] Address: [address] [place] [address] Performed By: #### 2 4323-8 ####[facility] LABCLIA [id number] [place] [address] Bilirubin [Mass/Vol] 1.3 mg/dL Normal 0.2-1.3 [facility] Comment on above: Order Comment: Speci men Type: BLOOD SPECIMENOrdering Facility: [facility] Address: [address] [place] [address] Performed By: #### 2 4323-8 ####[facility] LABCLIA [id number] [place] [address] Calcium [Mass/Vol] 10.3 mg/dL High 8.5-10.2 [facility] Comment on above: Order Comment: Speci men Type: BLOOD SPECIMENOrdering Facility: [facility] Address: [address] [place] [address] Performed By: #### 2 4323-8 ####[facility] LABCLIA [id number] [place] [address] Chloride [Moles/Vol] 106 mmol/L High 97-105 [facility] Comment on above: Order Comment: Speci men Type: BLOOD SPECIMENOrdering Facility: [facility] Address: [address] [place] [address] Performed By: #### 2 4323-8 ####[facility] LABCLIA [id number] [place] [address] CO2 [Moles/Vol] 23 mmol/L Normal 22-30 [facility] Comment on above: Order Comment: Speci men Type: BLOOD SPECIMENOrdering Facility: [facility] Address: [address] [place] [address] Performed By: #### 2 4323-8 ####[facility] LABCLIA [id number] [place] [address] Creatinine [Mass/Vol] 0.85 mg/dL Normal 0.73-1.22 [facility] Comment on above: Order Comment: Speci men Type: BLOOD SPECIMENOrdering Facility: [facility] Address: [address] [place] [address] [place], [place] [address] Performed By: #### 2 4323-8 ####[facility] LABCLIA [id number] [place] [address] Creatinine and Glomerular filtration rate.predicted panel (S/P/Bld) 92 mL/min/1.73m??? Normal >=60 [facility] Comment on above: Order Comment: Rajanimack hoff Type: BLOOD SPECIMENOrdering Facility: [facility] Address: [address] [place] [address] Result Comment: Kathy mated Glomerular Filtration Rate [...] actual GFR. Performed By: #### 2 4323-8 ####[facility] LABIA [id number] [place] [address] Glucose [Mass/Vol] 164 mg/dL High 74-99 [facility] Comment on above: Order Comment: Speci luis eduardo Type: BLOOD SPECIMENOrdering Facility: [facility] Address: [address] [place] [address] Result Comment: The [place] [employer] (ADA) provides guidance for cutoff [...] Standards of Medical Care in Diabetes 2016, [place] [employer]. Diabetes Care. 2016.39(Suppl 1). Performed By: #### 2 4323-8 ####[facility] LABCLIA [id number] [place] [address] Potassium [Moles/Vol] 3.6 mmol/L Low 3.7-5.1 [facility] Comment on above: Order Comment: Speci men Type: BLOOD SPECIMENOrdering Facility: [facility] Address: [address] [place] [address] Performed By: #### 2 4323-8 ####[facility] LABCLIA [id number] [place] [address] Protein [Mass/Vol] 6.3 g/dL Normal 6.3-8.0 [facility] Comment on above: Order Comment: Speci men Type: BLOOD SPECIMENOrdering Facility: [facility] Address: [address] [place] [address] Performed By: #### 2 4323-8 ####[facility] LABCLIA [id number] [place] [address] Sodium [Moles/Vol] 139 mmol/L Normal 136-144 [facility] Comment on above: Order Comment: Speci men Type: BLOOD SPECIMENOrdering Facility: [facility] Address: [address] [place] [address] Performed By: #### 2 4323-8 ####[facility] LABCLIA [id number] [place] [address] Urea nitrogen [Mass/Vol] 19 mg/dL Normal 9-24 [facility] Comment on above: Order Comment: Speci men Type: BLOOD SPECIMENOrdering Facility: [facility] Address: [address] [place] [address] Performed By: #### 2 4323-8 ####[facility] LABCLIA [id number] [place] [address] Laboratory - Hematology and Cell countson 07-05-2023 Basophils/100 WBC (Bld) 0.7 % [facility] Eosinophils/100 WBC (Bld) 2.0 % [facility] Erythrocyte distribution width (RBC) [Ratio] 17.7 % High 11.5 - 15.0 % [facility] Hematocrit (Bld) [Volume fraction] 32.0 % Low 39.0 - 51.0 % [facility] Hemoglobin (Bld) [Mass/Vol] 10.6 g/dL Low 13.0 - 17.0 g/dL [facility] Lymphocytes/100 WBC (Bld) 21.5 % [facility] MCH (RBC) [Entitic mass] 33.9 pg 26.0 - 34.0 pg [facility] MCHC (RBC) [Mass/Vol] 33.1 g/dL 30.5 - 36.0 g/dL [facility] MCV (RBC) [Entitic vol] 102.2 fL High 80.0 - 100.0 fL [facility] Monocytes/100 WBC (Bld) 6.9 % [facility] Neutrophils/100 WBC (Bld) 68.6 % [facility] RBC (Bld) [#/Vol] 3.13 10*6/uL Low 4.20 - 6.0 0 m/uL [facility] CNPNon 06-23-2023 CNPN Normal [facility] CBC W Auto Differential pane l (Bld)on 06-21-2023 Basophils (Bld) [#/Vol] 0.03 10*3/uL Normal <0.11 [facility] Comment on above: Order Comment: Speci men Type: BLOOD SPECIMENOrdering Facility: [facility] Address: [address] [place] [address] Performed By: #### 5 7021-8 ####[facility] LABIA [id number] [place] [address] Basophils/100 WBC (Bld) 0.4 % Normal [facility] Comment on above: Order Comment: Speci men Type: BLOOD SPECIMENOrdering Facility: [facility] Address: [address] [place] [address] Performed By: #### 5 7021-8 ####[facility] LABIA [id number] [place] [address] Differential cell count method Nom (Bld) Auto Normal [facility] Comment on above: Order Comment: Speci men Type: BLOOD SPECIMENOrdering Facility: [facility] Address: [address] [place] [address] Performed By: #### 5 7021-8 ####[facility] LABCLIA [id number] [place] [address] Eosinophils (Bld) [#/Vol] 0.07 10*3/uL Normal <0.46 [facility] Comment on above: Order Comment: Speci men Type: BLOOD SPECIMENOrdering Facility: [facility] Address: [address] [place] [address] Performed By: #### 5 7021-8 ####[facility] LABCLIA [id number] [place] [address] Eosinophils/100 WBC (Bld) 0.9 % Normal [facility] Comment on above: Order Comment: Speci men Type: BLOOD SPECIMENOrdering Facility: [facility] Address: [address] [place] [address] Performed By: #### 5 7021-8 ####[facility] LABIA [id number] [place] [address] Erythrocyte distribution width (RBC) [Ratio] 16.7 % High 11.5-15.0 [facility] Comment on above: Order Comment: Speci men Type: BLOOD SPECIMENOrdering Facility: [facility] Address: [address] [place] [address] Performed By: #### 5 7021-8 ####[facility] LABCLIA [id number] [place] [address] Hematocrit (Bld) [Volume fraction] 29.9 % Low 39.0-51.0 [facility] Comment on above: Order Comment: Speci men Type: BLOOD SPECIMENOrdering Facility: [facility] Address: [address] [place] [address] Performed By: #### 5 7021-8 ####[facility] LABIA [id number] [place] [address] Hemoglobin (Bld) [Mass/Vol] 10.1 g/dL Low 13.0-17.0 [facility] Comment on above: Order Comment: Speci men Type: BLOOD SPECIMENOrdering Facility: [facility] Address: [address] [place] [address] Performed By: #### 5 7021-8 ####[facility] LABCLIA [id number] [place] [address] Immature granulocytes (Bld) [#/Vol] 0.03 10*3/uL Normal <0.10 [facility] Comment on above: Order Comment: Speci men Type: BLOOD SPECIMENOrdering Facility: [facility] Address: [address] [place] [address] Performed By: #### 5 7021-8 ####[facility] LABCLIA [id number] [place] [address] Immature granulocytes/100 WBC (Bld) 0.4 % Normal [facility] Comment on above: Order Comment: Speci men Type: BLOOD SPECIMENOrdering Facility: [facility] Address: [address] [place] [address] Performed By: #### 5 7021-8 ####[facility] LABCLIA [id number] [place] [address] Lymphocytes (Bld) [#/Vol] 1.48 10*3/uL Normal 1.00-4.00 [facility] Comment on above: Order Comment: Speci men Type: BLOOD SPECIMENOrdering Facility: [facility] Address: [address] [place] [address] Performed By: #### 5 7021-8 ####[facility] LABCLIA [id number] [place] [address] Lymphocytes/100 WBC (Bld) 20.0 % Normal [facility] Comment on above: Order Comment: Speci men Type: BLOOD SPECIMENOrdering Facility: [facility] Address: [address] [place] [address] Performed By: #### 5 7021-8 ####[facility] LABCLIA [id number] [place] [address] MCH (RBC) [Entitic mass] 34.0 pg Normal 26.0-34.0 [facility] Comment on above: Order Comment: Speci men Type: BLOOD SPECIMENOrdering Facility: [facility] Address: [address] [place] [address] Performed By: #### 5 7021-8 ####[facility] LABCLIA [id number] [place] [address] MCHC (RBC) [Mass/Vol] 33.8 g/dL Normal 30.5-36.0 [facility] Comment on above: Order Comment: Speci men Type: BLOOD SPECIMENOrdering Facility: [facility] Address: [address] [place] [address] Performed By: #### 5 7021-8 ####[facility] LABCLIA [id number] [place] [address] MCV (RBC) [Entitic vol] 100.7 fL High 80.0-100.0 [facility] Comment on above: Order Comment: Speci men Type: BLOOD SPECIMENOrdering Facility: [facility] Address: [address] [place] [address] Performed By: #### 5 7021-8 ####[facility] LABCLIA [id number] [place] [address] Monocytes (Bld) [#/Vol] 0.38 10*3/uL Normal <0.87 [facility] Comment on above: Order Comment: Speci men Type: BLOOD SPECIMENOrdering Facility: [facility] Address: [address] [place] [address] Performed By: #### 5 7021-8 ####[facility] LABCLIA [id number] [place] [address] Monocytes/100 WBC (Bld) 5.1 % Normal [facility] Comment on above: Order Comment: Speci men Type: BLOOD SPECIMENOrdering Facility: [facility] Address: [address] [place] [address] Performed By: #### 5 7021-8 ####[facility] LABCLIA [id number] [place] [address] Neutrophils (Bld) [#/Vol] 5.41 10*3/uL Normal 1.45-7.50 [facility] Comment on above: Order Comment: Speci men Type: BLOOD SPECIMENOrdering Facility: [facility] Address: [address] [place] [address] Performed By: #### 5 7021-8 ####[facility] LABCLIA [id number] [place] [address] Neutrophils/100 WBC (Bld) 73.2 % Normal [facility] Comment on above: Order Comment: Speci men Type: BLOOD SPECIMENOrdering Facility: [facility] Address: [address] [place] [address] Performed By: #### 5 7021-8 ####[facility] LABCLIA [id number] [place] [address] Nucleated RBC (Bld) [#/Vol] 10*3/uL Normal <0.01 [facility] Comment on above: Order Comment: Speci men Type: BLOOD SPECIMENOrdering Facility: [facility] Address: [address] [place] [address] Performed By: #### 5 7021-8 ####[facility] LABCLIA [id number] [place] [address] Nucleated RBC/100 WBC (Bld) [Ratio] 0.0 /100 WBC Normal [facility] Comment on above: Order Comment: Speci men Type: BLOOD SPECIMENOrdering Facility: [facility] Address: [address] [place] [address] Performed By: #### 5 7021-8 ####[facility] LABCLIA [id number] [place] [address] Platelet mean volume (Bld) [Entitic vol] 9.0 fL Normal 9.0-12.7 [facility] Comment on above: Order Comment: Speci men Type: BLOOD SPECIMENOrdering Facility: [facility] Address: [address] [place] [address] Performed By: #### 5 7021-8 ####[facility] LABIA [id number] [place] [address] Platelets (Bld) [#/Vol] 258 10*3/uL Normal 150-400 [facility] Comment on above: Order Comment: Speci men Type: BLOOD SPECIMENOrdering Facility: [facility] Address: [address] [place] [address] Performed By: #### 5 7021-8 ####[facility] LABIA [id number] [place] [address] RBC (Bld) [#/Vol] 2.97 10*6/uL Low 4.20-6.00 [facility] Comment on above: Order Comment: Speci men Type: BLOOD SPECIMENOrdering Facility: [facility] Address: [address] [place] [address] Performed By: #### 5 7021-8 ####[facility] LABIA [id number] [place] [address] WBC (Bld) [#/Vol] 7.40 10*3/uL Normal 3.70-11.00 [facility] Comment on above: Order Comment: Speci men Type: BLOOD SPECIMENOrdering Facility: [facility] Address: [address] [place] [address] Performed By: #### 5 7021-8 ####[facility] LABIA [id number] [place] [address] CNCNPATEDon 06-21-2023 CNCNPATED Normal [facility] CNOVSPon 06-21-2023 CNOVSP Normal [facility] Comprehensive metabolic 2000 panelon 06-21-2023 Albumin [Mass/Vol] 3.8 g/dL Low 3.9-4.9 [facility] Comment on above: Order Comment: Speci men Type: BLOOD SPECIMENOrdering Facility: [facility] Address: [address] [place] [address] Performed By: #### 2 4323-8 ####[facility] LABCLIA [id number] [place] [address] ALP [Catalytic activity/Vol] 121 U/L High 38-113 [facility] Comment on above: Order Comment: Speci men Type: BLOOD SPECIMENOrdering Facility: [facility] Address: [address] [place] [address] Performed By: #### 2 4323-8 ####[facility] LABCLIA [id number] [place] [address] ALT [Catalytic activity/Vol] 16 U/L Normal 10-54 [facility] Comment on above: Order Comment: Speci men Type: BLOOD SPECIMENOrdering Facility: [facility] Address: [address] [place] [address] Performed By: #### 2 4323-8 ####[facility] LABCLIA [id number] [place] [address] Anion gap [Moles/Vol] 9 mmol/L Normal 9-18 [facility] Comment on above: Order Comment: Speci men Type: BLOOD SPECIMENOrdering Facility: [facility] Address: [address] [place] [address] Performed By: #### 2 4323-8 ####[facility] LABCLIA [id number] [place] [address] AST [Catalytic activity/Vol] 15 U/L Normal 14-40 [facility] Comment on above: Order Comment: Speci men Type: BLOOD SPECIMENOrdering Facility: [facility] Address: [address] [place] [address] Performed By: #### 2 4323-8 ####[facility] LABCLIA [id number] [place] [address] Bilirubin [Mass/Vol] 1.2 mg/dL Normal 0.2-1.3 [facility] Comment on above: Order Comment: Speci men Type: BLOOD SPECIMENOrdering Facility: [facility] Address: [address] [place] [address] Performed By: #### 2 4323-8 ####[facility] LABCLIA [id number] [place] [address] Calcium [Mass/Vol] 10.2 mg/dL Normal 8.5-10.2 [facility] Comment on above: Order Comment: Speci men Type: BLOOD SPECIMENOrdering Facility: [facility] Address: [address] [place] [address] Performed By: #### 2 4323-8 ####[facility] LABCLIA [id number] [place] [address] Chloride [Moles/Vol] 107 mmol/L High 97-105 [facility] Comment on above: Order Comment: Speci men Type: BLOOD SPECIMENOrdering Facility: [facility] Address: [address] [place] [address] Performed By: #### 2 4323-8 ####[facility] LABCLIA [id number] [place] [address] CO2 [Moles/Vol] 23 mmol/L Normal 22-30 [facility] Comment on above: Order Comment: Speci men Type: BLOOD SPECIMENOrdering Facility: [facility] Address: [address] [place] [address] Performed By: #### 2 4323-8 ####[facility] LABCLIA [id number] [place] [address] Creatinine [Mass/Vol] 0.75 mg/dL Normal 0.73-1.22 [facility] Comment on above: Order Comment: Speci men Type: BLOOD SPECIMENOrdering Facility: [facility] Address: [address] [place] [address] Performed By: #### 2 4323-8 ####[facility] LABCLIA [id number] [place] [address] Creatinine and Glomerular filtration rate.predicted panel (S/P/Bld) 96 mL/min/1.73m??? Normal >=60 [facility] Comment on above: Order Comment: Speci men Type: BLOOD SPECIMENOrdering Facility: [facility] Address: [address] [place] [address] Result Comment: Kathy mated Glomerular Filtration Rate [...] actual GFR. Performed By: #### 2 4323-8 ####[facility] LABCLIA [id number] [place] [address] Glucose [Mass/Vol] 156 mg/dL High 74-99 [facility] Comment on above: Order Comment: Speci men Type: BLOOD SPECIMENOrdering Facility: [facility] Address: [address] [place] [address] Result Comment: The [place] [employer] (ADA) provides guidance for cutoff [...] Standards of Medical Care in Diabetes 2016, [place] [employer]. Diabetes Care. 2016.39(Suppl 1). Performed By: #### 2 4323-8 ####[facility] LABCLIA [id number] [place] [address] Potassium [Moles/Vol] 3.6 mmol/L Low 3.7-5.1 [facility] Comment on above: Order Comment: Speci men Type: BLOOD SPECIMENOrdering Facility: [facility] Address: [address] [place] [address] Performed By: #### 2 4323-8 ####[facility] LABCLIA [id number] [place] [address] Protein [Mass/Vol] 6.1 g/dL Low 6.3-8.0 [facility] Comment on above: Order Comment: Speci men Type: BLOOD SPECIMENOrdering Facility: [facility] Address: [address] [place] [address] Performed By: #### 2 4323-8 ####[facility] LABCLIA [id number] [place] [address] Sodium [Moles/Vol] 139 mmol/L Normal 136-144 [facility] Comment on above: Order Comment: Speci men Type: BLOOD SPECIMENOrdering Facility: [facility] Address: [address] [place] [address] [place], [place] [address] Performed By: #### 2 4323-8 ####[facility] LABCLIA [id number] [place] [address] Urea nitrogen [Mass/Vol] 13 mg/dL Normal 9-24 [facility] Comment on above: Order Comment: Speci men Type: BLOOD SPECIMENOrdering Facility: [facility] Address: [address] [place] [address] Performed By: #### 2 4323-8 ####[facility] LABCLIA [id number] [place] [address] CNPNon 06-12-2023 CNPN Normal [facility] CNPNon 06-08-2023 CNPN Normal [facility] CBC W Auto Differential pane l (Bld)on 06-07-2023 Basophils (Bld) [#/Vol] 0.04 10*3/uL Normal <0.11 [facility] Comment on above: Order Comment: Speci men Type: BLOOD SPECIMENOrdering Facility: [facility] Address: [address] [place] [address] Performed By: #### 5 7021-8 ####[facility] LABCLIA [id number] [place] [address] Basophils/100 WBC (Bld) 0.4 % Normal [facility] Comment on above: Order Comment: Speci men Type: BLOOD SPECIMENOrdering Facility: [facility] Address: [address] [place] [address] Performed By: #### 5 7021-8 ####[facility] LABCLIA [id number] [place] [address] Differential cell count method Nom (Bld) Auto Normal [facility] Comment on above: Order Comment: Speci men Type: BLOOD SPECIMENOrdering Facility: [facility] Address: [address] [place] [address] Performed By: #### 5 7021-8 ####[facility] LABCLIA [id number] [place] [address] Eosinophils (Bld) [#/Vol] 10*3/uL Normal <0.46 [facility] Comment on above: Order Comment: Speci men Type: BLOOD SPECIMENOrdering Facility: [facility] Address: [address] [place] [address] Performed By: #### 5 7021-8 ####[facility] LABCLIA [id number] [place] [address] Eosinophils/100 WBC (Bld) 0.1 % Normal [facility] Comment on above: Order Comment: Speci men Type: BLOOD SPECIMENOrdering Facility: [facility] Address: [address] [place] [address] Performed By: #### 5 7021-8 ####[facility] LABCLIA [id number] [place] [address] Erythrocyte distribution width (RBC) [Ratio] 15.4 % High 11.5-15.0 [facility] Comment on above: Order Comment: Speci men Type: BLOOD SPECIMENOrdering Facility: [facility] Address: [address] [place] [address] Performed By: #### 5 7021-8 ####[facility] LABCLIA [id number] [place] [address] Hematocrit (Bld) [Volume fraction] 35.8 % Low 39.0-51.0 [facility] Comment on above: Order Comment: Speci men Type: BLOOD SPECIMENOrdering Facility: [facility] Address: [address] [place] [address] Performed By: #### 5 7021-8 ####[facility] LABCLIA [id number] [place] [address] Hemoglobin (Bld) [Mass/Vol] 11.7 g/dL Low 13.0-17.0 [facility] Comment on above: Order Comment: Speci men Type: BLOOD SPECIMENOrdering Facility: [facility] Address: [address] [place] [address] Performed By: #### 5 7021-8 ####[facility] LABCLIA [id number] [place] [address] Immature granulocytes (Bld) [#/Vol] 0.04 10*3/uL Normal <0.10 [facility] Comment on above: Order Comment: Speci men Type: BLOOD SPECIMENOrdering Facility: [facility] Address: [address] [place] [address] Performed By: #### 5 7021-8 ####[facility] LABCLIA [id number] [place] [address] Immature granulocytes/100 WBC (Bld) 0.4 % Normal [facility] Comment on above: Order Comment: Speci men Type: BLOOD SPECIMENOrdering Facility: [facility] Address: [address] [place] [address] Performed By: #### 5 7021-8 ####[facility] LABCLIA [id number] [place] [address] Lymphocytes (Bld) [#/Vol] 1.39 10*3/uL Normal 1.00-4.00 [facility] Comment on above: Order Comment: Speci men Type: BLOOD SPECIMENOrdering Facility: [facility] Address: [address] [place] [address] Performed By: #### 5 7021-8 ####[facility] LABCLIA [id number] [place] [address] Lymphocytes/100 WBC (Bld) 12.4 % Normal [facility] Comment on above: Order Comment: Speci men Type: BLOOD SPECIMENOrdering Facility: [facility] Address: [address] [place] [address] Performed By: #### 5 7021-8 ####[facility] LABCLIA [id number] [place] [address] MCH (RBC) [Entitic mass] 33.0 pg Normal 26.0-34.0 [facility] Comment on above: Order Comment: Speci men Type: BLOOD SPECIMENOrdering Facility: [facility] Address: [address] [place] [address] Performed By: #### 5 7021-8 ####[facility] LABCLIA [id number] [place] [address] MCHC (RBC) [Mass/Vol] 32.7 g/dL Normal 30.5-36.0 [facility] Comment on above: Order Comment: Speci men Type: BLOOD SPECIMENOrdering Facility: [facility] Address: [address] [place] [address] Performed By: #### 5 7021-8 ####[facility] LABCLIA [id number] [place] [address] MCV (RBC) [Entitic vol] 100.8 fL High 80.0-100.0 [facility] Comment on above: Order Comment: Speci men Type: BLOOD SPECIMENOrdering Facility: [facility] Address: [address] [place] [address] Performed By: #### 5 7021-8 ####[facility] LABCLIA [id number] [place] [address] Monocytes (Bld) [#/Vol] 0.76 10*3/uL Normal <0.87 [facility] Comment on above: Order Comment: Speci men Type: BLOOD SPECIMENOrdering Facility: [facility] Address: [address] [place] [address] Performed By: #### 5 7021-8 ####[facility] LABCLIA [id number] [place] [address] Monocytes/100 WBC (Bld) 6.8 % Normal [facility] Comment on above: Order Comment: Speci men Type: BLOOD SPECIMENOrdering Facility: [facility] Address: [address] [place] [address] Performed By: #### 5 7021-8 ####[facility] LABCLIA [id number] [place] [address] Neutrophils (Bld) [#/Vol] 8.98 10*3/uL High 1.45-7.50 [facility] Comment on above: Order Comment: Speci men Type: BLOOD SPECIMENOrdering Facility: [facility] Address: [address] [place] [address] Performed By: #### 5 7021-8 ####[facility] LABCLIA [id number] [place] [address] Neutrophils/100 WBC (Bld) 79.9 % Normal [facility] Comment on above: Order Comment: Speci men Type: BLOOD SPECIMENOrdering Facility: [facility] Address: [address] [place] [address] Performed By: #### 5 7021-8 ####[facility] LABCLIA [id number] [place] [address] Nucleated RBC (Bld) [#/Vol] 10*3/uL Normal <0.01 [facility] Comment on above: Order Comment: Speci men Type: BLOOD SPECIMENOrdering Facility: [facility] Address: [address] [place] [address] Performed By: #### 5 7021-8 ####[facility] LABCLIA [id number] [place] [address] Nucleated RBC/100 WBC (Bld) [Ratio] 0.0 /100 WBC Normal [facility] Comment on above: Order Comment: Speci men Type: BLOOD SPECIMENOrdering Facility: [facility] Address: [address] [place] [address] Performed By: #### 5 7021-8 ####[facility] LABCLIA [id number] [place] [address] Platelet mean volume (Bld) [Entitic vol] 9.9 fL Normal 9.0-12.7 [facility] Comment on above: Order Comment: Speci men Type: BLOOD SPECIMENOrdering Facility: [facility] Address: [address] [place] [address] Performed By: #### 5 7021-8 ####[facility] LABCLIA [id number] [place] [address] Platelets (Bld) [#/Vol] 297 10*3/uL Normal 150-400 [facility] Comment on above: Order Comment: Speci men Type: BLOOD SPECIMENOrdering Facility: [facility] Address: [address] [place] [address] Performed By: #### 5 7021-8 ####[facility] LABCLIA [id number] [place] [address] RBC (Bld) [#/Vol] 3.55 10*6/uL Low 4.20-6.00 [facility] Comment on above: Order Comment: Speci men Type: BLOOD SPECIMENOrdering Facility: [facility] Address: [address] [place] [address] Performed By: #### 5 7021-8 ####[facility] LABCLIA [id number] [place] [address] WBC (Bld) [#/Vol] 11.22 10*3/uL High 3.70-11.00 [facility] Comment on above: Order Comment: Speci men Type: BLOOD SPECIMENOrdering Facility: [facility] Address: [address] [place] [address] Performed By: #### 5 7021-8 ####[facility] LABCLIA [id number] [place] [address] CNCNPATEDon 06-07-2023 CNCNPATED Normal [facility] CNNURSEon 06-07-2023 CNNURSE Normal [facility] CNOVSPon 06-07-2023 CNOVSP Normal [facility] CNPNon 06-07-2023 CNPN Normal [facility] Comprehensive metabolic 2000 panelon 06-07-2023 Albumin [Mass/Vol] 4.3 g/dL Normal 3.9-4.9 [facility] Comment on above: Order Comment: Speci men Type: BLOOD SPECIMENOrdering Facility: [facility] Address: [address] [place] [address] Performed By: #### 2 4323-8 ####[facility] LABIA [id number] [place] [address] ALP [Catalytic activity/Vol] 127 U/L High 38-113 [facility] Comment on above: Order Comment: Speci men Type: BLOOD SPECIMENOrdering Facility: [facility] Address: [address] [place] [address] Performed By: #### 2 4323-8 ####[facility] LABCLIA [id number] [place] [address] ALT [Catalytic activity/Vol] 34 U/L Normal 10-54 [facility] Comment on above: Order Comment: Speci men Type: BLOOD SPECIMENOrdering Facility: [facility] Address: [address] [place] [address] Performed By: #### 2 4323-8 ####[facility] LABCLIA [id number] [place] [address] Anion gap [Moles/Vol] 9 mmol/L Normal 9-18 [facility] Comment on above: Order Comment: Speci men Type: BLOOD SPECIMENOrdering Facility: [facility] Address: [address] [place] [address] Performed By: #### 2 4323-8 ####[facility] LABCLIA [id number] [place] [address] AST [Catalytic activity/Vol] 25 U/L Normal 14-40 [facility] Comment on above: Order Comment: Speci men Type: BLOOD SPECIMENOrdering Facility: [facility] Address: [address] [place] [address] Performed By: #### 2 4323-8 ####[facility] LABCLIA [id number] [place] [address] Bilirubin [Mass/Vol] 1.3 mg/dL Normal 0.2-1.3 [facility] Comment on above: Order Comment: Speci men Type: BLOOD SPECIMENOrdering Facility: [facility] Address: [address] [place] [address] Performed By: #### 2 4323-8 ####[facility] LABCLIA [id number] [place] [address] Calcium [Mass/Vol] 10.7 mg/dL High 8.5-10.2 [facility] Comment on above: Order Comment: Speci men Type: BLOOD SPECIMENOrdering Facility: [facility] Address: [address] [place] [address] Performed By: #### 2 4323-8 ####[facility] LABCLIA [id number] [place] [address] Chloride [Moles/Vol] 103 mmol/L Normal 97-105 [facility] Comment on above: Order Comment: Speci men Type: BLOOD SPECIMENOrdering Facility: [facility] Address: [address] [place] [address] Performed By: #### 2 4323-8 ####[facility] LABCLIA [id number] [place] [address] CO2 [Moles/Vol] 25 mmol/L Normal 22-30 [facility] Comment on above: Order Comment: Speci men Type: BLOOD SPECIMENOrdering Facility: [facility] Address: [address] [place] [address] Performed By: #### 2 4323-8 ####[facility] LABCLIA [id number] [place] [address] Creatinine [Mass/Vol] 0.78 mg/dL Normal 0.73-1.22 [facility] Comment on above: Order Comment: Speci men Type: BLOOD SPECIMENOrdering Facility: [facility] Address: [address] [place] [address] Performed By: #### 2 4323-8 ####[facility] LABCLIA [id number] [place] [address] Creatinine and Glomerular filtration rate.predicted panel (S/P/Bld) 95 mL/min/1.73m??? Normal >=60 [facility] Comment on above: Order Comment: Speci men Type: BLOOD SPECIMENOrdering Facility: [facility] Address: [address] [place] [address] Result Comment: Kathy mated Glomerular Filtration Rate [...] actual GFR. Performed By: #### 2 4323-8 ####[facility] LABCLIA [id number] [place] [address] Glucose [Mass/Vol] 165 mg/dL High 74-99 [facility] Comment on above: Order Comment: Speci men Type: BLOOD SPECIMENOrdering Facility: [facility] Address: [address] [place] [address] Result Comment: The [place] [employer] (ADA) provides guidance for cutoff [...] Standards of Medical Care in Diabetes 2016, [place] [employer]. Diabetes Care. 2016.39(Suppl 1). Performed By: #### 2 4323-8 ####[facility] LABCLIA [id number] [place] [address] Potassium [Moles/Vol] 4.3 mmol/L Normal 3.7-5.1 [facility] Comment on above: Order Comment: Speci men Type: BLOOD SPECIMENOrdering Facility: [facility] Address: [address] [place] [address] Performed By: #### 2 4323-8 ####[facility] LABCLIA [id number] [place] [address] Protein [Mass/Vol] 6.9 g/dL Normal 6.3-8.0 [facility] Comment on above: Order Comment: Speci men Type: BLOOD SPECIMENOrdering Facility: [facility] Address: [address] [place], [place] [id number] Performed By: #### 2 4323-8 ####[facility] LABCLIA [id number] [place] [address] Sodium [Moles/Vol] 137 mmol/L Normal 136-144 [facility] Comment on above: Order Comment: Speci men Type: BLOOD SPECIMENOrdering Facility: [facility] Address: [address] [place] [address] Performed By: #### 2 4323-8 ####[facility] LABCLIA [id number] [place] [address] Urea nitrogen [Mass/Vol] 18 mg/dL Normal 9-24 [facility] Comment on above: Order Comment: Speci men Type: BLOOD SPECIMENOrdering Facility: [facility] Address: [address] [place] [address] Performed By: #### 2 4323-8 ####[facility] LABCLIA [id number] [place] [address] CNPNon 06-06-2023 CNPN Normal [facility] CBC W Auto Differential pane l (Bld)on 05-24-2023 Basophils (Bld) [#/Vol] 10*3/uL Normal <0.11 [facility] Comment on above: Order Comment: Speci men Type: BLOOD SPECIMENOrdering Facility: [facility] Address: [address] [place] [address] Performed By: #### 5 7021-8 ####[facility] LABCLIA [id number] [place] [address] Basophils/100 WBC (Bld) 0.3 % Normal [facility] Comment on above: Order Comment: Speci men Type: BLOOD SPECIMENOrdering Facility: [facility] Address: [address] [place] [address] Performed By: #### 5 7021-8 ####[facility] LABCLIA [id number] [place] [address] Differential cell count method Nom (Bld) Auto Normal [facility] Comment on above: Order Comment: Speci men Type: BLOOD SPECIMENOrdering Facility: [facility] Address: [address] [place] [address] Performed By: #### 5 7021-8 ####[facility] LABCLIA [id number] [place] [address] Eosinophils (Bld) [#/Vol] 0.04 10*3/uL Normal <0.46 [facility] Comment on above: Order Comment: Speci men Type: BLOOD SPECIMENOrdering Facility: [facility] Address: [address] [place] [address] Performed By: #### 5 7021-8 ####[facility] LABCLIA [id number] [place] [address] Eosinophils/100 WBC (Bld) 0.5 % Normal [facility] Comment on above: Order Comment: Speci men Type: BLOOD SPECIMENOrdering Facility: [facility] Address: [address] [place] [address] Performed By: #### 5 7021-8 ####[facility] LABCLIA [id number] [place] [address] Erythrocyte distribution width (RBC) [Ratio] 19.4 % High 11.5-15.0 [facility] Comment on above: Order Comment: Speci men Type: BLOOD SPECIMENOrdering Facility: [facility] Address: [address] [place] [address] Performed By: #### 5 7021-8 ####[facility] LABCLIA [id number] [place] [address] Hematocrit (Bld) [Volume fraction] 33.0 % Low 39.0-51.0 [facility] Comment on above: Order Comment: Speci men Type: BLOOD SPECIMENOrdering Facility: [facility] Address: [address] [place] [address] Performed By: #### 5 7021-8 ####[facility] LABCLIA [id number] [place] [address] Hemoglobin (Bld) [Mass/Vol] 10.5 g/dL Low 13.0-17.0 [facility] Comment on above: Order Comment: Speci men Type: BLOOD SPECIMENOrdering Facility: [facility] Address: [address] [place] [address] Performed By: #### 5 7021-8 ####[facility] LABCLIA [id number] [place] [address] Immature granulocytes (Bld) [#/Vol] 0.03 10*3/uL Normal <0.10 [facility] Comment on above: Order Comment: Speci men Type: BLOOD SPECIMENOrdering Facility: [facility] Address: [address] [place] [address] Performed By: #### 5 7021-8 ####[facility] LABCLIA [id number] [place] [address] Immature granulocytes/100 WBC (Bld) 0.4 % Normal [facility] Comment on above: Order Comment: Speci men Type: BLOOD SPECIMENOrdering Facility: [facility] Address: [address] [place] [address] Performed By: #### 5 7021-8 ####[facility] LABCLIA [id number] [place] [address] Lymphocytes (Bld) [#/Vol] 1.47 10*3/uL Normal 1.00-4.00 [facility] Comment on above: Order Comment: Speci men Type: BLOOD SPECIMENOrdering Facility: [facility] Address: [address] [place] [address] Performed By: #### 5 7021-8 ####[facility] LABCLIA [id number] [place] [address] Lymphocytes/100 WBC (Bld) 19.8 % Normal [facility] Comment on above: Order Comment: Speci men Type: BLOOD SPECIMENOrdering Facility: [facility] Address: [address] [place] [address] Performed By: #### 5 7021-8 ####[facility] LABCLIA [id number] [place] [address] MCH (RBC) [Entitic mass] 32.5 pg Normal 26.0-34.0 [facility] Comment on above: Order Comment: Speci men Type: BLOOD SPECIMENOrdering Facility: [facility] Address: [address] [place] [address] Performed By: #### 5 7021-8 ####[facility] LABCLIA [id number] [place] [address] MCHC (RBC) [Mass/Vol] 31.8 g/dL Normal 30.5-36.0 [facility] Comment on above: Order Comment: Speci men Type: BLOOD SPECIMENOrdering Facility: [facility] Address: [address] [place] [address] Performed By: #### 5 7021-8 ####[facility] LABCLIA [id number] [place] [address] MCV (RBC) [Entitic vol] 102.2 fL High 80.0-100.0 [facility] Comment on above: Order Comment: Speci men Type: BLOOD SPECIMENOrdering Facility: [facility] Address: [address] [place] [address] Performed By: #### 5 7021-8 ####[facility] LABCLIA [id number] [place] [address] Monocytes (Bld) [#/Vol] 0.80 10*3/uL Normal <0.87 [facility] Comment on above: Order Comment: Speci men Type: BLOOD SPECIMENOrdering Facility: [facility] Address: [address] [place] [address] Performed By: #### 5 7021-8 ####[facility] LABCLIA [id number] [place] [address] Monocytes/100 WBC (Bld) 10.8 % Normal [facility] Comment on above: Order Comment: Speci men Type: BLOOD SPECIMENOrdering Facility: [facility] Address: [address] [place] [address] Performed By: #### 5 7021-8 ####[facility] LABCLIA [id number] [place] [address] Neutrophils (Bld) [#/Vol] 5.07 10*3/uL Normal 1.45-7.50 [facility] Comment on above: Order Comment: Speci men Type: BLOOD SPECIMENOrdering Facility: [facility] Address: [address] [place] [address] Performed By: #### 5 7021-8 ####[facility] LABCLIA [id number] [place] [address] Neutrophils/100 WBC (Bld) 68.2 % Normal [facility] Comment on above: Order Comment: Speci men Type: BLOOD SPECIMENOrdering Facility: [facility] Address: [address] [place] [address] Performed By: #### 5 7021-8 ####[facility] LABCLIA [id number] [place] [address] Nucleated RBC (Bld) [#/Vol] 10*3/uL Normal <0.01 [facility] Comment on above: Order Comment: Speci men Type: BLOOD SPECIMENOrdering Facility: [facility] Address: [address] [place] [address] Performed By: #### 5 7021-8 ####[facility] LABCLIA [id number] [place] [address] Nucleated RBC/100 WBC (Bld) [Ratio] 0.0 /100 WBC Normal [facility] Comment on above: Order Comment: Speci men Type: BLOOD SPECIMENOrdering Facility: [facility] Address: [address] [place] [address] Performed By: #### 5 7021-8 ####[facility] LABCLIA [id number] [place] [address] Platelet mean volume (Bld) [Entitic vol] 9.9 fL Normal 9.0-12.7 [facility] Comment on above: Order Comment: Speci men Type: BLOOD SPECIMENOrdering Facility: [facility] Address: [address] [place] [address] Performed By: #### 5 7021-8 ####[facility] LABCLIA [id number] [place] [address] Platelets (Bld) [#/Vol] 222 10*3/uL Normal 150-400 [facility] Comment on above: Order Comment: Speci men Type: BLOOD SPECIMENOrdering Facility: [facility] Address: [address] [place] [address] Performed By: #### 5 7021-8 ####[facility] LABCLIA [id number] [place] [address] RBC (Bld) [#/Vol] 3.23 10*6/uL Low 4.20-6.00 [facility] Comment on above: Order Comment: Speci men Type: BLOOD SPECIMENOrdering Facility: [facility] Address: [address] [place] [address] Performed By: #### 5 7021-8 ####[facility] LABIA [id number] [place] [address] WBC (Bld) [#/Vol] 7.43 10*3/uL Normal 3.70-11.00 [facility] Comment on above: Order Comment: Speci men Type: BLOOD SPECIMENOrdering Facility: [facility] Address: [address] [place] [address] Performed By: #### 5 7021-8 ####[facility] LABIA [id number] [place] [address] CNOVSPon 05-24-2023 CNOVSP Normal [facility] Cancer Ag19-9 SerPl-aCncon 0 05-24-2023 Cancer Ag 19-9 Qn 1757.0 [arb'U]/mL High <36.0 [facility] Comment on above: Order Comment: Speci men Type: BLOOD SPECIMENOrdering Facility: [facility] Address: [address] [place] [address] Result Comment: Can er antigen 19-9 test is used as an aid in monitoring response to treatment or recurrence in patients with established pancreatic, hepatobiliary, or gastrointestinal malignancies. Clinical correlation is required.The CA 19-9 Antigen test was performed using the Elle [employer] DXI paramagnetic particle chemiluminescent immunoassay method. Results obtained with different assay methods or kits cannot be used interchangeably. Performed By: #### 2 4108-3 ####[facility] LABCLIA [id number] [facility] [id number] [address] [place] Comprehensive metabolic 2000 panelon 05-24-2023 Albumin [Mass/Vol] 4.3 g/dL Normal 3.9-4.9 [facility] Comment on above: Order Comment: Speci men Type: BLOOD SPECIMENOrdering Facility: [facility] Address: [address] [place] [address] Performed By: #### 2 4323-8 ####[facility] LABCLIA [id number] [place] [address] ALP [Catalytic activity/Vol] 127 U/L High 38-113 [facility] Comment on above: Order Comment: Speci men Type: BLOOD SPECIMENOrdering Facility: [facility] Address: [address] [place] [address] Performed By: #### 2 4323-8 ####[facility] LABCLIA [id number] [place] [address] ALT [Catalytic activity/Vol] 22 U/L Normal 10-54 [facility] Comment on above: Order Comment: Speci men Type: BLOOD SPECIMENOrdering Facility: [facility] Address: [address] [place] [address] Performed By: #### 2 4323-8 ####[facility] LABCLIA [id number] [place] [address] Anion gap [Moles/Vol] 9 mmol/L Normal 9-18 [facility] Comment on above: Order Comment: Speci men Type: BLOOD SPECIMENOrdering Facility: [facility] Address: [address] [place] [address] Performed By: #### 2 4323-8 ####[facility] LABCLIA [id number] [place] [address] AST [Catalytic activity/Vol] 20 U/L Normal 14-40 [facility] Comment on above: Order Comment: Speci men Type: BLOOD SPECIMENOrdering Facility: [facility] Address: [address] [place] [address] Performed By: #### 2 4323-8 ####[facility] LABCLIA [id number] [place] [address] Bilirubin [Mass/Vol] 1.3 mg/dL Normal 0.2-1.3 [facility] Comment on above: Order Comment: Speci men Type: BLOOD SPECIMENOrdering Facility: [facility] Address: [address] [place] [address] Performed By: #### 2 4323-8 ####[facility] LABCLIA [id number] [place] [address] Calcium [Mass/Vol] 10.8 mg/dL High 8.5-10.2 [facility] Comment on above: Order Comment: Speci men Type: BLOOD SPECIMENOrdering Facility: [facility] Address: [address] [place] [address] Performed By: #### 2 4323-8 ####[facility] LABCLIA [id number] [place] [address] Chloride [Moles/Vol] 101 mmol/L Normal 97-105 [facility] Comment on above: Order Comment: Speci men Type: BLOOD SPECIMENOrdering Facility: [facility] Address: [address] [place] [address] Performed By: #### 2 4323-8 ####[facility] LABCLIA [id number] [place] [address] CO2 [Moles/Vol] 25 mmol/L Normal 22-30 [facility] Comment on above: Order Comment: Speci men Type: BLOOD SPECIMENOrdering Facility: [facility] Address: [address] [place] [address] Performed By: #### 2 4323-8 ####[facility] LABCLIA [id number] [place] [address] Creatinine [Mass/Vol] 0.84 mg/dL Normal 0.73-1.22 [facility] Comment on above: Order Comment: Speci men Type: BLOOD SPECIMENOrdering Facility: [facility] Address: [address] [place] [address] Performed By: #### 2 4323-8 ####[facility] LABCLIA [id number] [place] [address] Creatinine and Glomerular filtration rate.predicted panel (S/P/Bld) 93 mL/min/1.73m??? Normal >=60 [facility] Comment on above: Order Comment: Speci men Type: BLOOD SPECIMENOrdering Facility: [facility] Address: [address] [place] [address] Result Comment: Kathy mated Glomerular Filtration Rate [...] actual GFR. Performed By: #### 2 4323-8 ####[facility] LABCLIA [id number] [place] [address] Glucose [Mass/Vol] 129 mg/dL High 74-99 [facility] Comment on above: Order Comment: Speci men Type: BLOOD SPECIMENOrdering Facility: [facility] Address: [address] [place] [address] Result Comment: The [place] [employer] (ADA) provides guidance for cutoff [...] Standards of Medical Care in Diabetes 2016, [place] [employer]. Diabetes Care. 2016.39(Suppl 1). Performed By: #### 2 4323-8 ####[facility] LABCLIA [id number] [place] [address] Potassium [Moles/Vol] 4.0 mmol/L Normal 3.7-5.1 [facility] Comment on above: Order Comment: Speci men Type: BLOOD SPECIMENOrdering Facility: [facility] Address: [address] [place] [address] Performed By: #### 2 4323-8 ####[facility] LABCLIA [id number] [place] [address] Protein [Mass/Vol] 7.2 g/dL Normal 6.3-8.0 [facility] Comment on above: Order Comment: Speci men Type: BLOOD SPECIMENOrdering Facility: [facility] Address: [address] [place] [address] Performed By: #### 2 4323-8 ####[facility] LABCLIA [id number] [place] [address] Sodium [Moles/Vol] 135 mmol/L Low 136-144 [facility] Comment on above: Order Comment: Speci men Type: BLOOD SPECIMENOrdering Facility: [facility] Address: [address] [place] [address] Performed By: #### 2 4323-8 ####[facility] LABCLIA [id number] [place] [address] Urea nitrogen [Mass/Vol] 20 mg/dL Normal 9-24 [facility] Comment on above: Order Comment: Speci men Type: BLOOD SPECIMENOrdering Facility: [facility] Address: [address] [place] [address] Performed By: #### 2 4323-8 ####[facility] LABCLIA [id number] [place] [address] CREATININE BLDon 05-18-2023 Creatinine [Mass/Vol] 0.80 mg/dL Normal 0.73-1.22 [facility] Comment on above: Order Comment: Speci men Type: BLOOD SPECIMENOrdering Facility: [facility] Address: [address] [place] [address] Performed By: #### C RET1 ####[facility] LABCLIA [id number] [place] [address] Creatinine and Glomerular filtration rate.predicted panel (S/P/Bld) 94 mL/min/1.73m??? Normal >=60 [facility] Comment on above: Order Comment: Speci men Type: BLOOD SPECIMENOrdering Facility: [facility] Address: [address] [place] [address] Result Comment: Kathy mated Glomerular Filtration Rate [...] actual GFR. Performed By: #### C RET1 ####[facility] LABCLIA [id number] [place] [address] CT ABD/PEL W IVCONon 023 CT ABD/PEL W IVCON Normal [facility] CT Abdomen and Pelvis W cont rast [place] 05-18-2023 IMPRESSION: 1. Worsening metastatic disease when compared to the prior study with worsening retroperitoneal adenopathy as described above. There is also worsening peritoneal carcinomatosis and a worsening subcutaneous nodule along the anterior abdominal wall. 2. Moderate to marked enlargement of the prostate gland. Transcribe Date/Time: May 18 2023 1:27P Dictated by: SHANE MCGOWAN MD This examination was interpreted and the report reviewed and electronically signed by: SHANE MCGOWAN MD on May 18 2023 1:44PM EST Thank you for allowing us to participate in the care of your patient. Should there be any questions regarding this interpretation, please call [phone]. If you are unable to reach us at the number above, please feel free to contact [facility] at [phone]. 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 TECHNIQUE: CT of the abdomen and pelvis was performed using standard technique, scanning from just above the dome of the diaphragm to the symphysis pubis. MQ: CTAP_3 Contrast: IV: 150 ml of Omnipaque 300 Oral: 500 ml of Omni 240 10-25ml diluted with water CT Radiation dose: Integrated Dose-length product (DLP) for this visit = 882 mGy*cm. CT Dose Reduction Employed: Automated exposure control (AEC) COMPARISON: CT the abdomen and pelvis with contrast from 11/03/2022. RESULT: Liver: No hepatic mass detected. The previously seen area of hypoattenuation in segment 3 of the liver is no longer present. This may have been due to focal fatty infiltration on the prior exam. Biliary: No bile duct dilation. Cholecystectomy. Spleen: No mass. Numerous benign calcified splenic granulomas. Pancreas: Surgical changes compatible with Whipple procedure. Metallic stent is present within the pancreatic duct. There is mild to moderate pancreatic ductal dilatation which is similar in appearance to the prior exam. There is nonspecific stranding/infiltrative tissue surrounding the right common hepatic artery. This is similar in appearance to the prior exam. This could be due to infiltrative neoplasm or posttreatment change. Adrenals: No mass. Kidneys: Renal cysts as well as subcentimeter hypodense renal lesions which are too small to characterize but likely represent cysts. GI tract: Surgical changes compatible with Whipple procedure. Lymph nodes: Multiple enlarged lymph nodes. The nodes demonstrate partial calcification. Moderately to markedly enlarged paraceliac node measuring 4.1 x 3.9 cm on slice 52 of series 2. This is minimally increased in size when compared to the prior exam when it measured 3.9 x 3.2 cm in the same plane. Moderate to markedly enlarged left para-aortic lymph node measuring 3.8 x 3.6 cm. This is minimally increased in size when compared to the prior exam when it measured 3.3 x 3.0 cm. Moderately to markedly enlarged aortocaval lymph node which measures 4.9 x 3.4 cm. This is minimally increased in size when compared to the prior study when it measured 4.9 x 3.4 cm. [employer] Helper Mesentery/Peritoneum: Soft tissue implant anterior to the right kidney measuring 2.9 x 2.2 cm. This is minimally increased in size. Additional peritoneal nodules which have increased in size and are consistent with worsening peritoneal carcinomatosis. For example, there is a 3.0 x 1.2 cm nodule in the right paracolic gutter on slice 85 of series 3, increased in size when compared to the prior exam when it measured 1.5 x 1.1 cm. Additional smaller peritoneal nodules which have also increased in size. Pelvis: Moderate to marked enlargement the prostate gland. Circumferential thickening of the wall of the urinary bladder which may be related to bladder outlet obstruction. Bones/Soft Tissues: Multilevel spondylosis and degenerative disc disease of the lumbar spine. There is again noted to be heterogeneous density of the bone marrow which is nonspecific. Small fat-containing left inguinal hernia. 1.2 x 1.0 cm subcutaneous nodule along the right anterior abdominal wall on slice 16 of series 3. This is moderately increased in size when compared to the prior exam when it measured 0.6 x 0.5 cm. Lower thorax: A chest CT performed will be reported separately. Cable Installer Repairer Helper (topogram) images: No additional findings. 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 TECHNIQUE: CT of the abdomen and pelvis was performed using standard technique, scanning from just above the dome of the diaphragm to the symphysis pubis. MQ: CTAP_3 Contrast: IV: 150 ml of Omnipaque 300 Oral: 500 ml of Omni 240 10-25ml diluted with water CT Radiation dose: Integrated Dose-length product (DLP) for this visit = 882 mGy*cm. CT Dose Reduction Employed: Automated exposure control (AEC) COMPARISON: CT the abdomen and pelvis with contrast from 11/03/2022. RESULT: Liver: No hepatic mass detected. The previously seen area of hypoattenuation in segment 3 of the liver is no longer present. This may have been due to focal fatty infiltration on the prior exam. Biliary: No bile duct dilation. Cholecystectomy. Spleen: No mass. Numerous benign calcified splenic granulomas. Pancreas: Surgical changes compatible with Whipple procedure. Metallic stent is present within the pancreatic duct. There is mild to moderate pancreatic ductal dilatation which is similar in appearance to the prior exam. There is nonspecific stranding/infiltrative tissue surrounding the right common hepatic artery. This is similar in appearance to the prior exam. This could be due to infiltrative neoplasm or posttreatment change. Adrenals: No mass. Kidneys: Renal cysts as well as subcentimeter hypodense renal lesions which are too small to characterize but likely represent cysts. GI tract: Surgical changes compatible with Whipple procedure. Lymph nodes: Multiple enlarged lymph nodes. The nodes demonstrate partial calcification. Moderately to markedly enlarged paraceliac node measuring 4.1 x 3.9 cm on slice 52 of series 2. This is minimally increased in size when compared to the prior exam when it measured 3.9 x 3.2 cm in the same plane. Moderate to markedly enlarged left para-aortic lymph node measuring 3.8 x 3.6 cm. This is minimally increased in size when compared to the prior exam when it measured 3.3 x 3.0 cm. Moderately to markedly enlarged aortocaval lymph node which measures 4.9 x 3.4 cm. This is minimally increased in size when compared to the prior study when it measured 4.9 x 3.4 cm. Cable Installer Repairer Helper Mesentery/Peritoneum: Soft tissue implant anterior to the right kidney measuring 2.9 x 2.2 cm. This is minimally increased in size. Additional peritoneal nodules which have increased in size and are consistent with worsening peritoneal carcinomatosis. For example, there is a 3.0 x 1.2 cm nodule in the right paracolic gutter on slice 85 of series 3, increased in size when compared to the prior exam when it measured 1.5 x 1.1 cm. Additional smaller peritoneal nodules which have also increased in size. Pelvis: Moderate to marked enlargement the prostate gland. Circumferential thickening of the wall of the urinary bladder which may be related to bladder outlet obstruction. Bones/Soft Tissues: Multilevel spondylosis and degenerative disc disease of the lumbar spine. There is again noted to be heterogeneous density of the bone marrow which is nonspecific. Small fat-containing left inguinal hernia. 1.2 x 1.0 cm subcutaneous nodule along the right anterior abdominal wall on slice 16 of series 3. This is moderately increased in size when compared to the prior exam when it measured 0.6 x 0.5 cm. Lower thorax: A chest CT performed will be reported separately. Cable Installer Repairer Helper (topogram) images: No additional findings. IMPRESSION IMPRESSION: 1. Worsening metastatic disease when compared to the prior study with worsening retroperitoneal adenopathy as described above. There is also worsening peritoneal carcinomatosis and a worsening subcutaneous nodule along the anterior abdominal wall. 2. Moderate to marked enlargement of the prostate gland. Transcribe Date/Time: May 18 2023 1:27P Dictated by: SHANE MCGOWAN MD This examination was interpreted and the report reviewed and electronically signed by: SHANE MCGOWAN MD on May 18 2023 1:44PM EST Thank you for allowing us to participate in the care of your patient. Should there be any questions regarding this interpretation, please call [phone]. If you are unable to reach us at the number above, please feel free to contact [facility] at [phone]. [facility] CT CHEST W IVCONon 3 CT CHEST W IVCON Normal [place] [facility] CT Chest W contrast [place] IMPRESSION: 1. Stable subcentimeter pulmonary nodules. 2. Areas of centrilobular nodularity in the right upper lobe and left lower lobe which could be due to bronchiolitis. Would advise continued attention on follow-up studies and clinical correlation. 3. Stable nonspecific 8 mm nodule in the prevascular space. This is unchanged when compared to multiple prior exams. Transcribe Date/Time: May 18 2023 1:44P Dictated by: SHANE MCGOWAN MD This examination was interpreted and the report reviewed and electronically signed by: SHANE MCGOWAN MD on May 18 2023 1:53PM EST Thank you for allowing us to participate in the care of your patient. Should there be any questions regarding this interpretation, please call [phone]. If you are unable to reach us at the number above, please feel free to contact [facility] at [phone]. 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 Technique: Spiral CT acquisition of the chest from the thoracic inlet to the upper abdomen following IV contrast. MQ: CTCW_6 Contrast: 150 mL Omnipaque [address] Radiation dose: Integrated Dose-length product (DLP) for this visit = 882 mGy*cm CT Dose Reduction Employed: Automated exposure control (AEC) Comparison: Chest CT from 12/21/2022 and 11/03/2022 RESULT: Limitations: None. Lines, tubes, and devices: Right jugular venous Port-A-Cath with tip near superior cavoatrial junction. Lung parenchyma and airways: Stable 7 mm solid nodule in the anterior right lower lobe on slice 111 of series 4. Stable 2 mm solid nodule in the anterior left upper lobe on slice 80 of series 4. Stable 4 mm solid nodule in the posterior left lower lobe on slice 127 of series 4. Scattered areas of centrilobular nodularity in the right upper lobe and left lower lobe which may be secondary to bronchiolitis. Would advise continued attention on follow-up scans. Benign calcified granuloma in the right lower lobe. Minimal scattered discoid atelectasis. Pleural space: No pleural effusion. No pleural thickening. Lower neck, lymph nodes, and mediastinum: No suspicious axillary or hilar lymphadenopathy. Stable nonspecific 8 mm prevascular nodule on slice 49 of series 3. Calcified subcarinal and right hilar lymph nodes compatible with old granulomatous disease. Nonspecific thyroid nodules. Heart, pericardium, and thoracic vessels: Trace pericardial fluid. Mild coronary artery calcification. Bones and soft tissues: No destructive bone lesion. Chest wall is unremarkable. Upper abdomen: A CT of the abdomen and pelvis was performed and will be reported separately. Cable Installer Repairer Helper (topogram) images: No additional findings. DIVISION OF RADIOLOGY Provider, Helga Araceli [facility] - 05/18/2023 * * *Final Report* * * DATE OF EXAM: May 18 2023 11:17AM [facility] 0539 - CT CHEST W IVCON / PROCEDURE REASON: Malignant neoplasm of head of pancreas (HCC) * * * * Physician Interpretation * * * * RESULT: EXAMINATION: CHEST CT WITH CONTRAST CLINICAL HISTORY: Pancreatic cancer. Technique: Spiral CT acquisition of the chest from the thoracic inlet to the upper abdomen following IV contrast. MQ: CTCW_6 Contrast: 150 mL Omnipaque [address] Radiation dose: Integrated Dose-length product (DLP) for this visit = 882 mGy*cm CT Dose Reduction Employed: Automated exposure control (AEC) Comparison: Chest CT from 12/21/2022 and 11/03/2022 RESULT: Limitations: None. Lines, tubes, and devices: Right jugular venous Port-A-Cath with tip near superior cavoatrial junction. Lung parenchyma and airways: Stable 7 mm solid nodule in the anterior right lower lobe on slice 111 of series 4. Stable 2 mm solid nodule in the anterior left upper lobe on slice 80 of series 4. Stable 4 mm solid nodule in the posterior left lower lobe on slice 127 of series 4. Scattered areas of centrilobular nodularity in the right upper lobe and left lower lobe which may be secondary to bronchiolitis. Would advise continued attention on follow-up scans. Benign calcified granuloma in the right lower lobe. Minimal scattered discoid atelectasis. Pleural space: No pleural effusion. No pleural thickening. Lower neck, lymph nodes, and mediastinum: No suspicious axillary or hilar lymphadenopathy. Stable nonspecific 8 mm prevascular nodule on slice 49 of series 3. Calcified subcarinal and right hilar lymph nodes compatible with old granulomatous disease. Nonspecific thyroid nodules. Heart, pericardium, and thoracic vessels: Trace pericardial fluid. Mild coronary artery calcification. Bones and soft tissues: No destructive bone lesion. Chest wall is unremarkable. Upper abdomen: A CT of the abdomen and pelvis was performed and will be reported separately. Cable Installer Repairer Helper (topogram) images: No additional findings. IMPRESSION IMPRESSION: 1. Stable subcentimeter pulmonary nodules. 2. Areas of centrilobular nodularity in the right upper lobe and left lower lobe which could be due to bronchiolitis. Would advise continued attention on follow-up studies and clinical correlation. 3. Stable nonspecific 8 mm nodule in the prevascular space. This is unchanged when compared to multiple prior exams. Transcribe Date/Time: May 18 2023 1:44P Dictated by: SHANE MCGOWAN MD This examination was interpreted and the report reviewed and electronically signed by: SHANE MCGOWAN MD on May 18 2023 1:53PM EST Thank you for allowing us to participate in the care of your patient. Should there be any questions regarding this interpretation, please call [phone]. If you are unable to reach us at the number above, please feel free to contact [facility] at [phone]. [facility] CT Chest W contrast IVOrdere d By: [facility] Provider on 05-18-2023 [facility] - Chemistry and C hemistry - challengeOrdered By: Elizabeth Yu on 05-18-2023 Creatinine [Mass/Vol] 0.80 mg/dL 0.73 - 1.22 mg/dL [facility] GFR/1.73 sq M.predicted among non-blacks MDRD (S/P/Bld) [Vol rate/Area] 94 mL/min/{1.73_m2} - PINF [facility] Comment on above: Estimated Glomerular Filtration [...] eGFR may not accurately reflect actual GFR. No Panel InformationOrdered By: Elizabeth Yu on 05-18-2023 Interpretation and review of laboratory results Normal [facility] No Panel Informationon 05-18 Radiology Study observation (narrative) [facility] CBC W Auto Differential pane l (Bld)on 05-12-2023 Basophils (Bld) [#/Vol] 0.03 10*3/uL Normal <0.11 [facility] Comment on above: Order Comment: Speci men Type: BLOOD SPECIMENOrdering Facility: [facility] Address: [address] [place] [address] Performed By: #### 5 7021-8 ####[facility] LABCLIA [id number] [place] [address] Basophils/100 WBC (Bld) 0.5 % Normal [facility] Comment on above: Order Comment: Speci men Type: BLOOD SPECIMENOrdering Facility: [facility] Address: [address] [place] [address] Performed By: #### 5 7021-8 ####[facility] LABCLIA [id number] [place] [address] Differential cell count method Nom (Bld) Auto Normal [facility] Comment on above: Order Comment: Speci men Type: BLOOD SPECIMENOrdering Facility: [facility] Address: [address] [place] [address] Performed By: #### 5 7021-8 ####[facility] LABCLIA [id number] [place] [address] Eosinophils (Bld) [#/Vol] 10*3/uL Normal <0.46 [facility] Comment on above: Order Comment: Speci men Type: BLOOD SPECIMENOrdering Facility: [facility] Address: [address] [place] [address] Performed By: #### 5 7021-8 ####[facility] LABCLIA [id number] [place] [address] Eosinophils/100 WBC (Bld) 0.4 % Normal [facility] Comment on above: Order Comment: Speci men Type: BLOOD SPECIMENOrdering Facility: [facility] Address: [address] [place] [address] Performed By: #### 5 7021-8 ####[facility] LABCLIA [id number] [place] [address] Erythrocyte distribution width (RBC) [Ratio] 17.2 % High 11.5-15.0 [facility] Comment on above: Order Comment: Speci men Type: BLOOD SPECIMENOrdering Facility: [facility] Address: [address] [place] [address] Performed By: #### 5 7021-8 ####[facility] LABCLIA [id number] [place] [address] Hematocrit (Bld) [Volume fraction] 29.8 % Low 39.0-51.0 [facility] Comment on above: Order Comment: Speci men Type: BLOOD SPECIMENOrdering Facility: [facility] Address: [address] [place] [address] Performed By: #### 5 7021-8 ####[facility] LABCLIA [id number] [place] [address] Hemoglobin (Bld) [Mass/Vol] 9.8 g/dL Low 13.0-17.0 [facility] Comment on above: Order Comment: Speci men Type: BLOOD SPECIMENOrdering Facility: [facility] Address: [address] [place] [address] Performed By: #### 5 7021-8 ####[facility] LABCLIA [id number] [place] [address] Immature granulocytes (Bld) [#/Vol] 10*3/uL Normal <0.10 [facility] Comment on above: Order Comment: Speci men Type: BLOOD SPECIMENOrdering Facility: [facility] Address: [address] [place] [address] Performed By: #### 5 7021-8 ####[facility] LABCLIA [id number] [place] [address] Immature granulocytes/100 WBC (Bld) 0.4 % Normal [facility] Comment on above: Order Comment: Speci men Type: BLOOD SPECIMENOrdering Facility: [facility] Address: [address] [place] [address] Performed By: #### 5 7021-8 ####[facility] LABCLIA [id number] [place] [address] Lymphocytes (Bld) [#/Vol] 1.83 10*3/uL Normal 1.00-4.00 [facility] Comment on above: Order Comment: Speci men Type: BLOOD SPECIMENOrdering Facility: [facility] Address: [address] [place] [address] Performed By: #### 5 7021-8 ####[facility] LABCLIA [id number] [place] [address] Lymphocytes/100 WBC (Bld) 33.0 % Normal [facility] Comment on above: Order Comment: Speci men Type: BLOOD SPECIMENOrdering Facility: [facility] Address: [address] [place] [address] Performed By: #### 5 7021-8 ####[facility] LABCLIA [id number] [place] [address] MCH (RBC) [Entitic mass] 31.5 pg Normal 26.0-34.0 [facility] Comment on above: Order Comment: Speci men Type: BLOOD SPECIMENOrdering Facility: [facility] Address: [address] [place] [address] Performed By: #### 5 7021-8 ####[facility] LABCLIA [id number] [place] [address] MCHC (RBC) [Mass/Vol] 32.9 g/dL Normal 30.5-36.0 [facility] Comment on above: Order Comment: Speci men Type: BLOOD SPECIMENOrdering Facility: [facility] Address: [address] [place] [address] Performed By: #### 5 7021-8 ####[facility] LABCLIA [id number] [place] [address] MCV (RBC) [Entitic vol] 95.8 fL Normal 80.0-100.0 [facility] Comment on above: Order Comment: Speci men Type: BLOOD SPECIMENOrdering Facility: [facility] Address: [address] [place] [address] Performed By: #### 5 7021-8 ####[facility] LABCLIA [id number] [place] [address] Monocytes (Bld) [#/Vol] 0.40 10*3/uL Normal <0.87 [facility] Comment on above: Order Comment: Speci men Type: BLOOD SPECIMENOrdering Facility: [facility] Address: [address] [place] [address] Performed By: #### 5 7021-8 ####[facility] LABCLIA [id number] [place] [address] Monocytes/100 WBC (Bld) 7.2 % Normal [facility] Comment on above: Order Comment: Speci men Type: BLOOD SPECIMENOrdering Facility: [facility] Address: [address] [place] [address] Performed By: #### 5 7021-8 ####[facility] LABCLIA [id number] [place] [address] Neutrophils (Bld) [#/Vol] 3.24 10*3/uL Normal 1.45-7.50 [facility] Comment on above: Order Comment: Speci men Type: BLOOD SPECIMENOrdering Facility: [facility] Address: [address] [place] [address] Performed By: #### 5 7021-8 ####[facility] LABCLIA [id number] [place] [address] Neutrophils/100 WBC (Bld) 58.5 % Normal [facility] Comment on above: Order Comment: Speci men Type: BLOOD SPECIMENOrdering Facility: [facility] Address: [address] [place] [address] Performed By: #### 5 7021-8 ####[facility] LABCLIA [id number] [place] [address] Nucleated RBC (Bld) [#/Vol] 10*3/uL Normal <0.01 [facility] Comment on above: Order Comment: Speci men Type: BLOOD SPECIMENOrdering Facility: [facility] Address: [address] [place] [address] Performed By: #### 5 7021-8 ####[facility] LABCLIA [id number] [place] [address] Nucleated RBC/100 WBC (Bld) [Ratio] 0.0 /100 WBC Normal [facility] Comment on above: Order Comment: Speci men Type: BLOOD SPECIMENOrdering Facility: [facility] Address: [address] [place] [address] Performed By: #### 5 7021-8 ####[facility] LABCLIA [id number] [place] [address] Platelet mean volume (Bld) [Entitic vol] 10.2 fL Normal 9.0-12.7 [facility] Comment on above: Order Comment: Speci men Type: BLOOD SPECIMENOrdering Facility: [facility] Address: [address] [place] [address] Performed By: #### 5 7021-8 ####[facility] LABCLIA [id number] [place] [address] Platelets (Bld) [#/Vol] 186 10*3/uL Normal 150-400 [facility] Comment on above: Order Comment: Speci men Type: BLOOD SPECIMENOrdering Facility: [facility] Address: [address] [place] [address] Performed By: #### 5 7021-8 ####[facility] LABCLIA [id number] [place] [address] RBC (Bld) [#/Vol] 3.11 10*6/uL Low 4.20-6.00 [facility] Comment on above: Order Comment: Speci men Type: BLOOD SPECIMENOrdering Facility: [facility] Address: [address] [place] [address] Performed By: #### 5 7021-8 ####[facility] LABCLIA [id number] [place] [address] WBC (Bld) [#/Vol] 5.54 10*3/uL Normal 3.70-11.00 [facility] Comment on above: Order Comment: Speci men Type: BLOOD SPECIMENOrdering Facility: [facility] Address: [address] [place] [address] Performed By: #### 5 7021-8 ####[facility] LABCLIA [id number] [place] [address] CNOVSPon 05-12-2023 CNOVSP Normal [facility] metabolic 2000 panelon 05-12-2023 Albumin [Mass/Vol] 4.1 g/dL Normal 3.9-4.9 [facility] Comment on above: Order Comment: Speci men Type: BLOOD SPECIMENOrdering Facility: [facility] Address: [address] [place] [address] Performed By: #### 2 4323-8 ####[facility] LABCLIA [id number] [place] [address] ALP [Catalytic activity/Vol] 116 U/L High 38-113 [facility] Comment on above: Order Comment: Speci men Type: BLOOD SPECIMENOrdering Facility: [facility] Address: [address] [place] [address] Performed By: #### 2 4323-8 ####[facility] LABCLIA [id number] [place] [address] ALT [Catalytic activity/Vol] 32 U/L Normal 10-54 [facility] Comment on above: Order Comment: Speci men Type: BLOOD SPECIMENOrdering Facility: [facility] Address: [address] [place] [address] Performed By: #### 2 4323-8 ####[facility] LABCLIA [id number] [place] [address] Anion gap [Moles/Vol] 8 mmol/L Low 9-18 [facility] Comment on above: Order Comment: Speci men Type: BLOOD SPECIMENOrdering Facility: [facility] Address: [address] [place] [address] Performed By: #### 2 4323-8 ####[facility] LABCLIA [id number] [place] [address] AST [Catalytic activity/Vol] 24 U/L Normal 14-40 [facility] Comment on above: Order Comment: Speci men Type: BLOOD SPECIMENOrdering Facility: [facility] Address: [address] [place] [address] Performed By: #### 2 4323-8 ####[facility] LABCLIA [id number] [place] [address] Bilirubin [Mass/Vol] 1.2 mg/dL Normal 0.2-1.3 [facility] Comment on above: Order Comment: Speci men Type: BLOOD SPECIMENOrdering Facility: [facility] Address: [address] [place] [address] Performed By: #### 2 4323-8 ####[facility] LABCLIA [id number] [place] [address] Calcium [Mass/Vol] 10.9 mg/dL High 8.5-10.2 [facility] Comment on above: Order Comment: Speci men Type: BLOOD SPECIMENOrdering Facility: [facility] Address: [address] [place] [address] Performed By: #### 2 4323-8 ####[facility] LABCLIA [id number] [place] [address] Chloride [Moles/Vol] 104 mmol/L Normal 97-105 [facility] Comment on above: Order Comment: Speci men Type: BLOOD SPECIMENOrdering Facility: [facility] Address: [address] [place] [address] Performed By: #### 2 4323-8 ####[facility] LABCLIA [id number] [place] [address] CO2 [Moles/Vol] 26 mmol/L Normal 22-30 [facility] Comment on above: Order Comment: Speci men Type: BLOOD SPECIMENOrdering Facility: [facility] Address: [address] [id number] Performed By: #### 2 4323-8 ####[facility] LABCLIA [id number] [place] [address] Creatinine [Mass/Vol] 0.75 mg/dL Normal 0.73-1.22 [facility] Comment on above: Order Comment: Speci men Type: BLOOD SPECIMENOrdering Facility: [facility] Address: [address] [place] [address] Performed By: #### 2 4323-8 ####[facility] LABCLIA [id number] [place] [address] Creatinine and Glomerular filtration rate.predicted panel (S/P/Bld) 96 mL/min/1.73m??? Normal >=60 [facility] Comment on above: Order Comment: Speci men Type: BLOOD SPECIMENOrdering Facility: [facility] Address: [address] [place] [address] Result Comment: Kathy mated Glomerular Filtration Rate [...] actual GFR. Performed By: #### 2 4323-8 ####[facility] LABCLIA [id number] [place] [address] Glucose [Mass/Vol] 152 mg/dL High 74-99 [facility] Comment on above: Order Comment: Speci men Type: BLOOD SPECIMENOrdering Facility: [facility] Address: [address] [place] [address] Result Comment: The [place] [employer] (ADA) provides guidance for cutoff [...] Standards of Medical Care in Diabetes 2016, [place] [employer]. Diabetes Care. 2016.39(Suppl 1). Performed By: #### 2 4323-8 ####[facility] LABCLIA [id number] [place] [address] Potassium [Moles/Vol] 4.1 mmol/L Normal 3.7-5.1 [facility] Comment on above: Order Comment: Speci men Type: BLOOD SPECIMENOrdering Facility: [facility] Address: [address] [place] [address] Performed By: #### 2 4323-8 ####[facility] LABCLIA [id number] [place] [address] Protein [Mass/Vol] 7.1 g/dL Normal 6.3-8.0 [facility] Comment on above: Order Comment: Speci men Type: BLOOD SPECIMENOrdering Facility: [facility] Address: [address] [place] [address] Performed By: #### 2 4323-8 ####[facility] LABCLIA [id number] [place] [address] Sodium [Moles/Vol] 138 mmol/L Normal 136-144 [facility] Comment on above: Order Comment: Speci men Type: BLOOD SPECIMENOrdering Facility: [facility] Address: [address] [place] [address] Performed By: #### 2 4323-8 ####[facility] LABCLIA [id number] [place] [address] Urea nitrogen [Mass/Vol] 16 mg/dL Normal 9-24 [facility] Comment on above: Order Comment: Speci men Type: BLOOD SPECIMENOrdering Facility: [facility] Address: [place] [address] Performed By: #### 2 4323-8 ####[facility] LABCLIA [id number] [place] [address] CNPNon 05-08-2023 CNPN Normal [facility] CBC W Auto Differential pane l (Bld)on 05-05-2023 Basophils (Bld) [#/Vol] 0.05 10*3/uL <0.11 k/uL [facility] Basophils/100 WBC (Bld) 0.3 % [facility] Differential cell count method Nom (Bld) Auto [facility] Eosinophils (Bld) [#/Vol] 0.04 10*3/uL <0.46 k/uL [facility] Eosinophils/100 WBC (Bld) 0.3 % [facility] Erythrocyte distribution width (RBC) [Ratio] 17.2 % High 11.5 - 15.0 % [facility] Hematocrit (Bld) [Volume fraction] 36.8 % Low 39.0 - 51.0 % [facility] Hemoglobin (Bld) [Mass/Vol] 12.0 g/dL Low 13.0 - 17.0 g/dL [facility] Immature granulocytes (Bld) [#/Vol] 0.07 10*3/uL <0.10 k/uL [facility] Immature granulocytes/100 WBC (Bld) 0.5 % [facility] Lymphocytes (Bld) [#/Vol] 2.10 10*3/uL 1.00 - 4.00 k/uL [facility] Lymphocytes/100 WBC (Bld) 14.4 % [facility] MCH (RBC) [Entitic mass] 31.4 pg 26.0 - 34.0 pg [facility] MCHC (RBC) [Mass/Vol] 32.6 g/dL 30.5 - 36.0 g/dL [facility] MCV (RBC) [Entitic vol] 96.3 fL 80.0 - 100.0 fL [facility] Monocytes (Bld) [#/Vol] 1.12 10*3/uL High <0.87 k/uL [facility] Monocytes/100 WBC (Bld) 7.7 % [facility] Neutrophils (Bld) [#/Vol] 11.22 10*3/uL High 1.45 - 7.50 k/uL [facility] Neutrophils/100 WBC (Bld) 76.8 % [facility] Nucleated RBC (Bld) [#/Vol] <0.01 k/uL [facility] Nucleated RBC/100 WBC (Bld) [Ratio] 0.0 /100 WBC [facility] Platelet mean volume (Bld) [Entitic vol] 10.2 fL 9.0 - 12.7 fL [facility] Platelets (Bld) [#/Vol] 376 10*3/uL 150 - 400 k/uL [facility] RBC (Bld) [#/Vol] 3.82 10*6/uL Low 4.20 - 6.0 0 m/uL [facility] WBC (Bld) [#/Vol] 14.60 10*3/uL High 3.70 - 11.00 k/uL [facility] Basophils (Bld) [#/Vol] 0.05 10*3/uL Normal <0.11 [facility] Comment on above: Order Comment: Speci men Type: BLOOD SPECIMENOrdering Facility: [facility] Address: [address] [place] [address] Performed By: #### 5 7021-8 ####[facility] LABIA [id number] [place] [address] Basophils/100 WBC (Bld) 0.3 % Normal [facility] Comment on above: Order Comment: Speci men Type: BLOOD SPECIMENOrdering Facility: [facility] Address: [address] [place] [address] Performed By: #### 5 7021-8 ####[facility] LABCLIA [id number] [place] [address] Differential cell count method Nom (Bld) Auto Normal [facility] Comment on above: Order Comment: Speci men Type: BLOOD SPECIMENOrdering Facility: [facility] Address: [address] [place] [address] Performed By: #### 5 7021-8 ####[facility] LABCLIA [id number] [place] [address] Eosinophils (Bld) [#/Vol] 0.04 10*3/uL Normal <0.46 [facility] Comment on above: Order Comment: Speci men Type: BLOOD SPECIMENOrdering Facility: [facility] Address: [address] [place] [address] Performed By: #### 5 7021-8 ####[facility] [facility] [id number] [place] [address] Eosinophils/100 WBC (Bld) 0.3 % Normal [facility] Comment on above: Order Comment: Speci men Type: BLOOD SPECIMENOrdering Facility: [facility] Address: [address] [place] [address] Performed By: #### 5 7021-8 ####[facility] LABCLIA [id number] [place] [address] Erythrocyte distribution width (RBC) [Ratio] 17.2 % High 11.5-15.0 [facility] Comment on above: Order Comment: Speci men Type: BLOOD SPECIMENOrdering Facility: [facility] Address: [address] [place] [address] Performed By: #### 5 7021-8 ####[facility]CLIA [id number] [place] [address] Hematocrit (Bld) [Volume fraction] 36.8 % Low 39.0-51.0 [facility] Comment on above: Order Comment: Speci men Type: BLOOD SPECIMENOrdering Facility: [facility] Address: [address] [place] [address] Performed By: #### 5 7021-8 ####[facility]CLIA [id number] [place] [address] Hemoglobin (Bld) [Mass/Vol] 12.0 g/dL Low 13.0-17.0 [facility] Comment on above: Order Comment: Speci men Type: BLOOD SPECIMENOrdering Facility: [facility] Address: [address] [place] [address] Performed By: #### 5 7021-8 ####[facility]CLIA [id number] [place] [address] Immature granulocytes (Bld) [#/Vol] 0.07 10*3/uL Normal <0.10 [facility] Comment on above: Order Comment: Speci men Type: BLOOD SPECIMENOrdering Facility: [facility] Address: [address] [place] [address] Performed By: #### 5 7021-8 ####[facility]CLIA [id number] [place] [address] Immature granulocytes/100 WBC (Bld) 0.5 % Normal [facility] Comment on above: Order Comment: Speci men Type: BLOOD SPECIMENOrdering Facility: [facility] Address: [address] [place] [address] Performed By: #### 5 7021-8 ####[facility]CLIA [id number] [place] [address] Lymphocytes (Bld) [#/Vol] 2.10 10*3/uL Normal 1.00-4.00 [facility] Comment on above: Order Comment: Speci men Type: BLOOD SPECIMENOrdering Facility: [facility] Address: [address] [place] [address] Performed By: #### 5 7021-8 ####[facility]CLIA [id number] [place] [address] Lymphocytes/100 WBC (Bld) 14.4 % Normal [facility] Comment on above: Order Comment: Speci men Type: BLOOD SPECIMENOrdering Facility: [facility] Address: [address] [place] [address] Performed By: #### 5 7021-8 ####[facility]CLIA [id number] [place] [address] MCH (RBC) [Entitic mass] 31.4 pg Normal 26.0-34.0 [facility] Comment on above: Order Comment: Speci men Type: BLOOD SPECIMENOrdering Facility: [facility] Address: [address] [place] [address] Performed By: #### 5 7021-8 ####[facility]CL[facility] [id number] [place] [address] MCHC (RBC) [Mass/Vol] 32.6 g/dL Normal 30.5-36.0 [facility] Comment on above: Order Comment: Speci men Type: BLOOD SPECIMENOrdering Facility: [facility] Address: [address] [place] [address] Performed By: #### 5 7021-8 ####[facility] LABIA [id number] [place] [address] MCV (RBC) [Entitic vol] 96.3 fL Normal 80.0-100.0 [facility] Comment on above: Order Comment: Speci men Type: BLOOD SPECIMENOrdering Facility: [facility] Address: [address] [place] [address] Performed By: #### 5 7021-8 ####[facility] LABIA [id number] [place] [address] Monocytes (Bld) [#/Vol] 1.12 10*3/uL High <0.87 [facility] Comment on above: Order Comment: Speci men Type: BLOOD SPECIMENOrdering Facility: [facility] Address: [address] [place] [address] Performed By: #### 5 7021-8 ####[facility] LABIA [id number] [place] [address] Monocytes/100 WBC (Bld) 7.7 % Normal [facility] Comment on above: Order Comment: Speci men Type: BLOOD SPECIMENOrdering Facility: [facility] Address: [address] [place] [address] Performed By: #### 5 7021-8 ####[facility] [id number] [place] [address] Neutrophils (Bld) [#/Vol] 11.22 10*3/uL High 1.45-7.50 [facility] Comment on above: Order Comment: Speci men Type: BLOOD SPECIMENOrdering Facility: [facility] Address: [address] [place] [address] Performed By: #### 5 7021-8 ####[facility]CL[facility] [id number] [place] [address] Neutrophils/100 WBC (Bld) 76.8 % Normal [facility] Comment on above: Order Comment: Speci men Type: BLOOD SPECIMENOrdering Facility: [facility] Address: [address] [place] [address] Performed By: #### 5 7021-8 ####[facility] LABIA [id number] [place] [address] Nucleated RBC (Bld) [#/Vol] 10*3/uL Normal <0.01 [facility] Comment on above: Order Comment: Speci men Type: BLOOD SPECIMENOrdering Facility: [facility] Address: [address] [place] [address] Performed By: #### 5 7021-8 ####[facility]CL[facility] [id number] [place] [address] Nucleated RBC/100 WBC (Bld) [Ratio] 0.0 /100 WBC Normal [facility] Comment on above: Order Comment: Speci men Type: BLOOD SPECIMENOrdering Facility: [facility] Address: [address] [place] [address] Performed By: #### 5 7021-8 ####[facility] LABIA [id number] [place] [address] Platelet mean volume (Bld) [Entitic vol] 10.2 fL Normal 9.0-12.7 [facility] Comment on above: Order Comment: Speci men Type: BLOOD SPECIMENOrdering Facility: [facility] Address: [address] [place] [address] Performed By: #### 5 7021-8 ####[facility]CL[facility] [id number] [place] [address] Platelets (Bld) [#/Vol] 376 10*3/uL Normal 150-400 [facility] Comment on above: Order Comment: Speci men Type: BLOOD SPECIMENOrdering Facility: [facility] Address: [address] [place] [address] Performed By: #### 5 7021-8 ####[facility]CL[facility] [id number] [place] [address] RBC (Bld) [#/Vol] 3.82 10*6/uL Low 4.20-6.00 [facility] Comment on above: Order Comment: Speci men Type: BLOOD SPECIMENOrdering Facility: [facility] Address: [address] [place] [address] Performed By: #### 5 7021-8 ####[facility] LABIA [id number] [place] [address] WBC (Bld) [#/Vol] 14.60 10*3/uL High 3.70-11.00 [facility] Comment on above: Order Comment: Speci men Type: BLOOD SPECIMENOrdering Facility: [facility] Address: [address] [place] [address] Performed By: #### 5 7021-8 ####[facility] LABIA [id number] [place] [address] CNOVSPon 05-05-2023 CNOVSP Normal [facility] Cancer Ag19-9 SerPl-aCncon 1 07-06-2022 Cancer Ag 19-9 Qn 2059.0 [arb'U]/mL High <36.0 [facility] Comment on above: Order Comment: Speci men Type: BLOOD SPECIMENOrdering Facility: [facility] Address: [address] [place] [address] Result Comment: [facility] er antigen 19-9 test is used as an aid in monitoring response to treatment or recurrence in patients with established pancreatic, hepatobiliary, or gastrointestinal malignancies. Clinical correlation is required.The CA 19-9 Antigen test was performed using the [employer] Unicel DXI paramagnetic particle chemiluminescent immunoassay method. Results obtained with different assay methods or kits cannot be used interchangeably. Performed By: #### 2 4108-3 ####[facility] LABCLIA [id number] [place] [address] [facility] Comprehensive metabolic 2000 panelon 05-05-2023 Albumin [Mass/Vol] 4.3 g/dL 3.9 - 4.9 g/dL [facility] ALP [Catalytic activity/Vol] 131 U/L High 38 - 113 U/L [facility] ALT [Catalytic activity/Vol] 26 U/L 10 - 54 U/L [facility] Anion gap [Moles/Vol] 10 mmol/L 9 - 18 mmol/L [facility] AST [Catalytic activity/Vol] 28 U/L 14 - 40 U/L [facility] Bilirubin [Mass/Vol] 1.3 mg/dL 0.2 - 1 .3 mg/dL [facility] Calcium [Mass/Vol] 11.1 mg/dL High 8.5 - 10. 2 mg/dL [facility] Chloride [Moles/Vol] 101 mmol/L 97 - 10 5 mmol/L [facility] CO2 [Moles/Vol] 24 mmol/L 22 - 30 mmol/L [facility] Creatinine [Mass/Vol] 0.87 mg/dL 0.73 - 1.22 mg/dL [facility] Estimated Glomerular Filtration Rate 92 mL/min/1.73m >=60 mL/min/1.73 m [facility] Glucose [Mass/Vol] 154 mg/dL High 74 - 99 mg/dL [facility] Potassium [Moles/Vol] 4.3 mmol/L 3.7 - 5.1 mmol/L [facility] Protein [Mass/Vol] 7.5 g/dL 6.3 - 8.0 g/dL [facility] Sodium [Moles/Vol] 135 mmol/L Low 136 - 144 mmol/L [facility] Urea nitrogen [Mass/Vol] 19 mg/dL 9 - 24 mg/dL [facility] Albumin [Mass/Vol] 4.3 g/dL Normal 3.9-4.9 [facility] Comment on above: Order Comment: Speci men Type: BLOOD SPECIMENOrdering Facility: [facility] Address: [address] [place] [address] Performed By: #### 2 4323-8 ####[facility]CLIA [id number] [place] [address] ALP [Catalytic activity/Vol] 131 U/L High 38-113 [facility] Comment on above: Order Comment: Speci men Type: BLOOD SPECIMENOrdering Facility: [facility] Address: [address] [place] [address] Performed By: #### 2 4323-8 ####[facility]CL[facility] [id number] [place] [address] ALT [Catalytic activity/Vol] 26 U/L Normal 10-54 [facility] Comment on above: Order Comment: Speci men Type: BLOOD SPECIMENOrdering Facility: [facility] Address: [address] [place] [address] Performed By: #### 2 4323-8 ####[facility]CL[facility] [id number] [place] [address] Anion gap [Moles/Vol] 10 mmol/L Normal 9-18 [facility] Comment on above: Order Comment: Speci men Type: BLOOD SPECIMENOrdering Facility: [facility] Address: [address] [place] [address] Performed By: #### 2 4323-8 ####[facility]CL[facility] [id number] [place] [address] AST [Catalytic activity/Vol] 28 U/L Normal 14-40 [facility] Comment on above: Order Comment: Speci men Type: BLOOD SPECIMENOrdering Facility: [facility] Address: [address] [place] [address] Performed By: #### 2 4323-8 ####[facility]CL[facility] [id number] [place] [address] Bilirubin [Mass/Vol] 1.3 mg/dL Normal 0.2-1.3 [facility] Comment on above: Order Comment: Speci men Type: BLOOD SPECIMENOrdering Facility: [facility] Address: [address] [place] [address] Performed By: #### 2 4323-8 ####[facility]CLIA [id number] [place] [address] Calcium [Mass/Vol] 11.1 mg/dL High 8.5-10.2 [facility] Comment on above: Order Comment: Speci men Type: BLOOD SPECIMENOrdering Facility: [facility] Address: [address] [place] [address] Performed By: #### 2 4323-8 ####[facility]CL[facility] [id number] [place] [address] Chloride [Moles/Vol] 101 mmol/L Normal 97-105 [facility] Comment on above: Order Comment: Speci men Type: BLOOD SPECIMENOrdering Facility: [facility] Address: [address] [place] [address] Performed By: #### 2 4323-8 ####[facility]CL[facility] [id number] [place] [address] CO2 [Moles/Vol] 24 mmol/L Normal 22-30 [facility] Comment on above: Order Comment: Speci men Type: BLOOD SPECIMENOrdering Facility: [facility] Address: [address] [place] [address] Performed By: #### 2 4323-8 ####[facility]CL[facility] [id number] [place] [address] Creatinine [Mass/Vol] 0.87 mg/dL Normal 0.73-1.22 [facility] Comment on above: Order Comment: Speci men Type: BLOOD SPECIMENOrdering Facility: [facility] Address: [address] [place] [address] Performed By: #### 2 4323-8 ####[facility]CLIA [id number] [place] [address] Creatinine and Glomerular filtration rate.predicted panel (S/P/Bld) 92 mL/min/1.73m??? Normal >=60 [facility] Comment on above: Order Comment: Noemí hoff Type: BLOOD SPECIMENOrdering Facility: [facility] Address: [address] [place] [address] Result Comment: Kathy mated Glomerular Filtration Rate [...] actual GFR. Performed By: #### 2 4323-8 ####[facility] LABCLIA [id number] [place] [address] Glucose [Mass/Vol] 154 mg/dL High 74-99 [facility] Comment on above: Order Comment: Noemí hoff Type: BLOOD SPECIMENOrdering Facility: [facility] Address: [address] [place] [address] Result Comment: The [place] [employer] (ADA) provides guidance for cutoff [...] Standards of Medical Care in Diabetes 2016, [place] [employer]. Diabetes Care. 2016.39(Suppl 1). Performed By: #### 2 4323-8 ####[facility] LABCLIA [id number] [place] [address] Potassium [Moles/Vol] 4.3 mmol/L Normal 3.7-5.1 [facility] Comment on above: Order Comment: Speci men Type: BLOOD SPECIMENOrdering Facility: [facility] Address: [address] [place] [address] Performed By: #### 2 4323-8 ####[facility] LABCLIA [id number] [place] [address] Protein [Mass/Vol] 7.5 g/dL Normal 6.3-8.0 [facility] Comment on above: Order Comment: Speci men Type: BLOOD SPECIMENOrdering Facility: [facility] Address: [address] [place] [address] Performed By: #### 2 4323-8 ####[facility] LABIA [id number] [place] [address] Sodium [Moles/Vol] 135 mmol/L Low 136-144 [facility] Comment on above: Order Comment: Speci men Type: BLOOD SPECIMENOrdering Facility: [facility] Address: [address] [place] [address] Performed By: #### 2 4323-8 ####[facility] LABIA [id number] [place] [address] Urea nitrogen [Mass/Vol] 19 mg/dL Normal 9-24 [facility] Comment on above: Order Comment: Speci men Type: BLOOD SPECIMENOrdering Facility: [facility] Address: [address] [place] [address] Performed By: #### 2 4323-8 ####[facility] LABIA [id number] [place] [address] CNPNon 2023 CNPN Normal [facility] CNPNon 04-07-2023 CNPN Normal [facility] CBC W Auto Differential pane l (Bld)on 04-05-2023 Basophils (Bld) [#/Vol] 0.05 10*3/uL <0.11 k/uL [facility] Basophils/100 WBC (Bld) 0.5 % [facility] Differential cell count method Nom (Bld) Auto [facility] Eosinophils (Bld) [#/Vol] <0.46 k/uL [facility] Eosinophils/100 WBC (Bld) 0.2 % [facility] Erythrocyte distribution width (RBC) [Ratio] 15.3 % High 11.5 - 15.0 % [facility] Hematocrit (Bld) [Volume fraction] 30.3 % Low 39.0 - 51.0 % [facility] Hemoglobin (Bld) [Mass/Vol] 10.0 g/dL Low 13.0 - 17.0 g/dL [facility] Immature granulocytes (Bld) [#/Vol] 0.04 10*3/uL <0.10 k/uL [facility] Immature granulocytes/100 WBC (Bld) 0.4 % [facility] Lymphocytes (Bld) [#/Vol] 1.63 10*3/uL 1.00 - 4.00 k/uL [facility] Lymphocytes/100 WBC (Bld) 15.5 % [facility] MCH (RBC) [Entitic mass] 32.3 pg 26.0 - 34.0 pg [facility] MCHC (RBC) [Mass/Vol] 33.0 g/dL 30.5 - 36.0 g/dL [facility] MCV (RBC) [Entitic vol] 97.7 fL 80.0 - 100.0 fL [facility] Monocytes (Bld) [#/Vol] 0.21 10*3/uL <0.87 k/uL [facility] Monocytes/100 WBC (Bld) 2.0 % [facility] Neutrophils (Bld) [#/Vol] 8.60 10*3/uL High 1.45 - 7.50 k/uL [facility] Neutrophils/100 WBC (Bld) 81.4 % [facility] Nucleated RBC (Bld) [#/Vol] <0.01 k/uL [facility] Nucleated RBC/100 WBC (Bld) [Ratio] 0.0 /100 WBC [facility] Platelet mean volume (Bld) [Entitic vol] 9.7 fL 9.0 - 12.7 fL [facility] Platelets (Bld) [#/Vol] 271 10*3/uL 150 - 400 k/uL [facility] RBC (Bld) [#/Vol] 3.10 10*6/uL Low 4.20 - 6.0 0 m/uL [facility] WBC (Bld) [#/Vol] 10.55 10*3/uL 3.70 - 11.00 k/uL [facility] Basophils (Bld) [#/Vol] 0.05 10*3/uL Normal <0.11 [facility] Comment on above: Order Comment: Speci men Type: BLOOD SPECIMENOrdering Facility: [facility] Address: [address] [place] [address] Performed By: #### 5 7021-8 ####[facility] LABCLIA [id number] [place] [address] Basophils/100 WBC (Bld) 0.5 % Normal [facility] Comment on above: Order Comment: Speci men Type: BLOOD SPECIMENOrdering Facility: [facility] Address: [address] [place] [address] Performed By: #### 5 7021-8 ####[facility] LABCLIA [id number] [place] [address] Differential cell count method Nom (Bld) Auto Normal [facility] Comment on above: Order Comment: Speci men Type: BLOOD SPECIMENOrdering Facility: [facility] Address: [address] [place] [address] Performed By: #### 5 7021-8 ####[facility] LABCLIA [id number] [place] [address] Eosinophils (Bld) [#/Vol] 10*3/uL Normal <0.46 [facility] Comment on above: Order Comment: Speci men Type: BLOOD SPECIMENOrdering Facility: [facility] Address: [address] [place] [address] Performed By: #### 5 7021-8 ####[facility] LABCLIA [id number] [place] [address] Eosinophils/100 WBC (Bld) 0.2 % Normal [facility] Comment on above: Order Comment: Speci men Type: BLOOD SPECIMENOrdering Facility: [facility] Address: [address] [place] [address] Performed By: #### 5 7021-8 ####[facility] LABCLIA [id number] [place] [address] Erythrocyte distribution width (RBC) [Ratio] 15.3 % High 11.5-15.0 [facility] Comment on above: Order Comment: Speci men Type: BLOOD SPECIMENOrdering Facility: [facility] Address: [address] [place] [address] Performed By: #### 5 7021-8 ####[facility] LABCLIA [id number] [place] [address] Hematocrit (Bld) [Volume fraction] 30.3 % Low 39.0-51.0 [facility] Comment on above: Order Comment: Speci men Type: BLOOD SPECIMENOrdering Facility: [facility] Address: [address] [place] [address] Performed By: #### 5 7021-8 ####[facility] LABCLIA [id number] [place] [address] Hemoglobin (Bld) [Mass/Vol] 10.0 g/dL Low 13.0-17.0 [facility] Comment on above: Order Comment: Speci men Type: BLOOD SPECIMENOrdering Facility: [facility] Address: [address] [place] [address] Performed By: #### 5 7021-8 ####[facility] LABCLIA [id number] [place] [address] Immature granulocytes (Bld) [#/Vol] 0.04 10*3/uL Normal <0.10 [facility] Comment on above: Order Comment: Speci men Type: BLOOD SPECIMENOrdering Facility: [facility] Address: [address] [place] [address] Performed By: #### 5 7021-8 ####[facility] LABCLIA [id number] [place] [address] Immature granulocytes/100 WBC (Bld) 0.4 % Normal [facility] Comment on above: Order Comment: Speci men Type: BLOOD SPECIMENOrdering Facility: [facility] Address: [address] [place] [address] Performed By: #### 5 7021-8 ####[facility] LABCLIA [id number] [place] [address] Lymphocytes (Bld) [#/Vol] 1.63 10*3/uL Normal 1.00-4.00 [facility] Comment on above: Order Comment: Speci men Type: BLOOD SPECIMENOrdering Facility: [facility] Address: [address] [place] [address] Performed By: #### 5 7021-8 ####[facility] LABCLIA [id number] [place] [address] Lymphocytes/100 WBC (Bld) 15.5 % Normal [facility] Comment on above: Order Comment: Speci men Type: BLOOD SPECIMENOrdering Facility: [facility] Address: [address] [place] [address] Performed By: #### 5 7021-8 ####[facility] LABCLIA [id number] [place] [address] MCH (RBC) [Entitic mass] 32.3 pg Normal 26.0-34.0 [facility] Comment on above: Order Comment: Speci men Type: BLOOD SPECIMENOrdering Facility: [facility] Address: [address] [place] [address] Performed By: #### 5 7021-8 ####[facility] LABIA [id number] [place] [address] MCHC (RBC) [Mass/Vol] 33.0 g/dL Normal 30.5-36.0 [facility] Comment on above: Order Comment: Speci men Type: BLOOD SPECIMENOrdering Facility: [facility] Address: [address] [place] [address] Performed By: #### 5 7021-8 ####[facility] LABCLIA [id number] [place] [address] MCV (RBC) [Entitic vol] 97.7 fL Normal 80.0-100.0 [facility] Comment on above: Order Comment: Speci men Type: BLOOD SPECIMENOrdering Facility: [facility] Address: [address] [place] [address] Performed By: #### 5 7021-8 ####[facility] LABCLIA [id number] [place] [address] Monocytes (Bld) [#/Vol] 0.21 10*3/uL Normal <0.87 [facility] Comment on above: Order Comment: Speci men Type: BLOOD SPECIMENOrdering Facility: [facility] Address: [address] [place] [address] Performed By: #### 5 7021-8 ####[facility] LABCLIA [id number] [place] [address] Monocytes/100 WBC (Bld) 2.0 % Normal [facility] Comment on above: Order Comment: Speci men Type: BLOOD SPECIMENOrdering Facility: [facility] Address: [address] [place] [address] Performed By: #### 5 7021-8 ####[facility] LABCLIA [id number] [place] [address] Neutrophils (Bld) [#/Vol] 8.60 10*3/uL High 1.45-7.50 [facility] Comment on above: Order Comment: Speci men Type: BLOOD SPECIMENOrdering Facility: [facility] Address: [address] [place] [address] Performed By: #### 5 7021-8 ####[facility] LABCLIA [id number] [place] [address] Neutrophils/100 WBC (Bld) 81.4 % Normal [facility] Comment on above: Order Comment: Speci men Type: BLOOD SPECIMENOrdering Facility: [facility] Address: [address] [place] [address] Performed By: #### 5 7021-8 ####[facility] LABCLIA [id number] [place] [address] Nucleated RBC (Bld) [#/Vol] 10*3/uL Normal <0.01 [facility] Comment on above: Order Comment: Speci men Type: BLOOD SPECIMENOrdering Facility: [facility] Address: [address] [place] [address] Performed By: #### 5 7021-8 ####[facility] LABCLIA [id number] [place] [address] Nucleated RBC/100 WBC (Bld) [Ratio] 0.0 /100 WBC Normal [facility] Comment on above: Order Comment: Speci men Type: BLOOD SPECIMENOrdering Facility: [facility] Address: [address] [place] [address] Performed By: #### 5 7021-8 ####[facility] LABCLIA [id number] [place] [address] Platelet mean volume (Bld) [Entitic vol] 9.7 fL Normal 9.0-12.7 [facility] Comment on above: Order Comment: Speci men Type: BLOOD SPECIMENOrdering Facility: [facility] Address: [address] [place] [address] Performed By: #### 5 7021-8 ####[facility] LABCLIA [id number] [place] [address] Platelets (Bld) [#/Vol] 271 10*3/uL Normal 150-400 [facility] Comment on above: Order Comment: Speci men Type: BLOOD SPECIMENOrdering Facility: [facility] Address: [address] [place] [address] Performed By: #### 5 7021-8 ####[facility] LABCLIA [id number] [place] [address] RBC (Bld) [#/Vol] 3.10 10*6/uL Low 4.20-6.00 [facility] Comment on above: Order Comment: Speci men Type: BLOOD SPECIMENOrdering Facility: [facility] Address: [address] [place] [address] Performed By: #### 5 7021-8 ####[facility] LABCLIA [id number] [place] [address] [facility] (Bld) [#/Vol] 10.55 10*3/uL Normal 3.70-11.00 [facility] Comment on above: Order Comment: Speci men Type: BLOOD SPECIMENOrdering Facility: [facility] Address: [address] [place] [address] Performed By: #### 5 7021-8 ####[facility] LABCLIA [id number] [place] [address] CNOVSPon 04-05-2023 CNOVSP Normal [facility] Cancer Ag19-9 SerPl-aCncon 1 06-05-2022 Cancer Ag 19-9 Qn 1648.0 [arb'U]/mL High <36.0 [facility] Comment on above: Order Comment: Speci men Type: BLOOD SPECIMENOrdering Facility: [facility] Address: [address] [place] [address] Result Comment: [facility] er antigen 19-9 test is used as an aid in monitoring response to treatment or recurrence in patients with established pancreatic, hepatobiliary, or gastrointestinal malignancies. Clinical correlation is required.The CA 19-9 Antigen test was performed using the [employer] Unic[employer] DXI paramagnetic particle chemiluminescent immunoassay method. Results obtained with different assay methods or kits cannot be used interchangeably. Performed By: #### 2 4108-3 ####[facility] LABCLIA [id number] [facility] [id number], [place] [address] [place] Comprehensive metabolic 2000 panelon 04-05-2023 Albumin [Mass/Vol] 4.2 g/dL 3.9 - 4.9 g/dL [facility] ALP [Catalytic activity/Vol] 112 U/L 38 - 113 U/L [facility] ALT [Catalytic activity/Vol] 18 U/L 10 - 54 U/L [facility] Anion gap [Moles/Vol] 8 mmol/L Low 9 - 18 mmol/L [facility] AST [Catalytic activity/Vol] 21 U/L 14 - 40 U/L [facility] Bilirubin [Mass/Vol] 1.2 mg/dL 0.2 - 1 .3 mg/dL [facility] Calcium [Mass/Vol] 10.9 mg/dL High 8.5 - 10. 2 mg/dL [facility] Chloride [Moles/Vol] 101 mmol/L 97 - 10 5 mmol/L [facility] CO2 [Moles/Vol] 25 mmol/L 22 - 30 mmol/L [facility] Creatinine [Mass/Vol] 0.79 mg/dL 0.73 - 1.22 mg/dL [facility] Estimated Glomerular Filtration Rate 95 mL/min/1.73m >=60 mL/min/1.73 m [facility] Glucose [Mass/Vol] 122 mg/dL High 74 - 99 mg/dL [facility] Potassium [Moles/Vol] 4.1 mmol/L 3.7 - 5.1 mmol/L [facility] Protein [Mass/Vol] 7.1 g/dL 6.3 - 8.0 g/dL [facility] Sodium [Moles/Vol] 134 mmol/L Low 136 - 144 mmol/L [facility] Urea nitrogen [Mass/Vol] 21 mg/dL 9 - 24 mg/dL [facility] Albumin [Mass/Vol] 4.2 g/dL Normal 3.9-4.9 [facility] Comment on above: Order Comment: Speci men Type: BLOOD SPECIMENOrdering Facility: [facility] Address: [address] [place] [address] Performed By: #### 2 4323-8 ####[facility] LABCLIA [id number] [place] [address] ALP [Catalytic activity/Vol] 112 U/L Normal 38-113 [facility] Comment on above: Order Comment: Speci men Type: BLOOD SPECIMENOrdering Facility: [facility] Address: [address] [place] [address] Performed By: #### 2 4323-8 ####[facility] LABCLIA [id number] [place] [address] ALT [Catalytic activity/Vol] 18 U/L Normal 10-54 [facility] Comment on above: Order Comment: Speci men Type: BLOOD SPECIMENOrdering Facility: [facility] Address: [address] [place] [address] Performed By: #### 2 4323-8 ####[facility] LABCLIA [id number] [place] [address] Anion gap [Moles/Vol] 8 mmol/L Low 9-18 [facility] Comment on above: Order Comment: Speci men Type: BLOOD SPECIMENOrdering Facility: [facility] Address: [address] [place] [address] Performed By: #### 2 4323-8 ####[facility] LABCLIA [id number] [place] [address] AST [Catalytic activity/Vol] 21 U/L Normal 14-40 [facility] Comment on above: Order Comment: Speci men Type: BLOOD SPECIMENOrdering Facility: [facility] Address: [address] [place] [address] Performed By: #### 2 4323-8 ####[facility] LABCLIA [id number] [place] [address] Bilirubin [Mass/Vol] 1.2 mg/dL Normal 0.2-1.3 [facility] Comment on above: Order Comment: Speci men Type: BLOOD SPECIMENOrdering Facility: [facility] Address: [address] [place] [address] Performed By: #### 2 4323-8 ####[facility] LABCLIA [id number] [place] [address] Calcium [Mass/Vol] 10.9 mg/dL High 8.5-10.2 [facility] Comment on above: Order Comment: Speci men Type: BLOOD SPECIMENOrdering Facility: [facility] Address: [address] [place] [address] Performed By: #### 2 4323-8 ####[facility] LABCLIA [id number] [place] [address] Chloride [Moles/Vol] 101 mmol/L Normal 97-105 [facility] Comment on above: Order Comment: Speci men Type: BLOOD SPECIMENOrdering Facility: [facility] Address: [address] [place] [address] Performed By: #### 2 4323-8 ####[facility] LABCLIA [id number] [place] [address] CO2 [Moles/Vol] 25 mmol/L Normal 22-30 [facility] Comment on above: Order Comment: Speci men Type: BLOOD SPECIMENOrdering Facility: [facility] Address: [address] [place] [address] Performed By: #### 2 4323-8 ####[facility] LABCLIA [id number] [place] [address] Creatinine [Mass/Vol] 0.79 mg/dL Normal 0.73-1.22 [facility] Comment on above: Order Comment: Speci men Type: BLOOD SPECIMENOrdering Facility: [facility] Address: [address] [place] [address] Performed By: #### 2 4323-8 ####[facility] LABCLIA [id number] [place] [address] Creatinine and Glomerular filtration rate.predicted panel (S/P/Bld) 95 mL/min/1.73m??? Normal >=60 [facility] Comment on above: Order Comment: Speci men Type: BLOOD SPECIMENOrdering Facility: [facility] Address: [address] [place] [address] Result Comment: Kathy mated Glomerular Filtration Rate [...] actual GFR. Performed By: #### 2 4323-8 ####[facility] LABCLIA [id number] [place] [address] Glucose [Mass/Vol] 122 mg/dL High 74-99 [facility] Comment on above: Order Comment: Noemí hoff Type: BLOOD SPECIMENOrdering Facility: [facility] Address: [address] [place] [address] Result Comment: The [place] [employer] (ADA) provides guidance for cutoff [...] Standards of Medical Care in Diabetes 2016, [place] [employer]. Diabetes Care. 2016.39(Suppl 1). Performed By: #### 2 4323-8 ####[facility] LABCLIA [id number] [place] [address] Potassium [Moles/Vol] 4.1 mmol/L Normal 3.7-5.1 [facility] Comment on above: Order Comment: Noemí hoff Type: BLOOD SPECIMENOrdering Facility: [facility] Address: [address] [place] [address] Performed By: #### 2 4323-8 ####[facility] LABCLIA [id number] [place] [address] Protein [Mass/Vol] 7.1 g/dL Normal 6.3-8.0 [facility] Comment on above: Order Comment: Speci men Type: BLOOD SPECIMENOrdering Facility: [facility] Address: [address] [place] [address] Performed By: #### 2 4323-8 ####[facility] LABCLIA [id number] [place] [address] Sodium [Moles/Vol] 134 mmol/L Low 136-144 [facility] Comment on above: Order Comment: Speci men Type: BLOOD SPECIMENOrdering Facility: [facility] Address: [address] [place] [address] Performed By: #### 2 4323-8 ####[facility] LABCLIA [id number] [place] [address] Urea nitrogen [Mass/Vol] 21 mg/dL Normal 9-24 [facility] Comment on above: Order Comment: Speci men Type: BLOOD SPECIMENOrdering Facility: [facility] Address: [address] [place] [address] Performed By: #### 2 4323-8 ####[facility] LABCLIA [id number] [place] [address] CNPNon 04-04-2023 CNPN Normal [facility] CBC W Auto Differential pane l (Bld)on 03-30-2023 Basophils (Bld) [#/Vol] 0.04 10*3/uL Normal <0.11 [facility] Comment on above: Order Comment: Speci men Type: BLOOD SPECIMENOrdering Facility: [facility] Address: [address] [place] [address] Performed By: #### 5 7021-8 ####[facility] LABCLIA [id number] [place] [address] Basophils/100 WBC (Bld) 0.5 % Normal [facility] Comment on above: Order Comment: Speci men Type: BLOOD SPECIMENOrdering Facility: [facility] Address: [address] [place] [address] Performed By: #### 5 7021-8 ####[facility] LABCLIA [id number] [place] [address] Differential cell count method Nom (Bld) Auto Normal [facility] Comment on above: Order Comment: Speci men Type: BLOOD SPECIMENOrdering Facility: [facility] Address: [address] [place] [address] Performed By: #### 5 7021-8 ####[facility] LABCLIA [id number] [place] [address] Eosinophils (Bld) [#/Vol] 0.03 10*3/uL Normal <0.46 [facility] Comment on above: Order Comment: Speci men Type: BLOOD SPECIMENOrdering Facility: [facility] Address: [address] [place] [address] Performed By: #### 5 7021-8 ####[facility] LABCLIA [id number] [place] [address] Eosinophils/100 WBC (Bld) 0.4 % Normal [facility] Comment on above: Order Comment: Speci men Type: BLOOD SPECIMENOrdering Facility: [facility] Address: [address] [place] [address] Performed By: #### 5 7021-8 ####[facility] LABCLIA [id number] [place] [address] Erythrocyte distribution width (RBC) [Ratio] 16.0 % High 11.5-15.0 [facility] Comment on above: Order Comment: Speci men Type: BLOOD SPECIMENOrdering Facility: [facility] Address: [address] [place] [address] Performed By: #### 5 7021-8 ####[facility] LABIA [id number] [place] [address] Hematocrit (Bld) [Volume fraction] 35.6 % Low 39.0-51.0 [facility] Comment on above: Order Comment: Speci men Type: BLOOD SPECIMENOrdering Facility: [facility] Address: [address] [place] [address] Performed By: #### 5 7021-8 ####[facility] LABCLIA [id number] [place] [address] Hemoglobin (Bld) [Mass/Vol] 11.2 g/dL Low 13.0-17.0 [facility] Comment on above: Order Comment: Speci men Type: BLOOD SPECIMENOrdering Facility: [facility] Address: [address] [place] [address] Performed By: #### 5 7021-8 ####[facility] LABCLIA [id number] [place] [address] Immature granulocytes (Bld) [#/Vol] 0.07 10*3/uL Normal <0.10 [facility] Comment on above: Order Comment: Speci men Type: BLOOD SPECIMENOrdering Facility: [facility] Address: [address] [place] [address] Performed By: #### 5 7021-8 ####[facility] LABCLIA [id number] [place] [address] Immature granulocytes/100 WBC (Bld) 0.9 % Normal [facility] Comment on above: Order Comment: Speci men Type: BLOOD SPECIMENOrdering Facility: [facility] Address: [address] [place] [address] Performed By: #### 5 7021-8 ####[facility] LABCLIA [id number] [place] [address] Lymphocytes (Bld) [#/Vol] 1.68 10*3/uL Normal 1.00-4.00 [facility] Comment on above: Order Comment: Speci men Type: BLOOD SPECIMENOrdering Facility: [facility] Address: [address] [place] [address] Performed By: #### 5 7021-8 ####[facility] LABCLIA [id number] [place] [address] Lymphocytes/100 WBC (Bld) 21.3 % Normal [facility] Comment on above: Order Comment: Speci men Type: BLOOD SPECIMENOrdering Facility: [facility] Address: [address] [place] [address] Performed By: #### 5 7021-8 ####[facility] LABCLIA [id number] [place] [address] MCH (RBC) [Entitic mass] 31.5 pg Normal 26.0-34.0 [facility] Comment on above: Order Comment: Speci men Type: BLOOD SPECIMENOrdering Facility: [facility] Address: [address] [place] [address] Performed By: #### 5 7021-8 ####[facility] LABCLIA [id number] [place] [address] MCHC (RBC) [Mass/Vol] 31.5 g/dL Normal 30.5-36.0 [facility] Comment on above: Order Comment: Speci men Type: BLOOD SPECIMENOrdering Facility: [facility] Address: [address] [place] [address] Performed By: #### 5 7021-8 ####[facility] LABCLIA [id number] [place] [address] MCV (RBC) [Entitic vol] 100.0 fL Normal 80.0-100.0 [facility] Comment on above: Order Comment: Speci men Type: BLOOD SPECIMENOrdering Facility: [facility] Address: [address] [place] [address] Performed By: #### 5 7021-8 ####[facility] LABCLIA [id number] [place] [address] Monocytes (Bld) [#/Vol] 0.82 10*3/uL Normal <0.87 [facility] Comment on above: Order Comment: Speci men Type: BLOOD SPECIMENOrdering Facility: [facility] Address: [address] [place] [address] Performed By: #### 5 7021-8 ####[facility] LABCLIA [id number] [place] [address] Monocytes/100 WBC (Bld) 10.4 % Normal [facility] Comment on above: Order Comment: Speci men Type: BLOOD SPECIMENOrdering Facility: [facility] Address: [address] [place] [address] Performed By: #### 5 7021-8 ####[facility] LABCLIA [id number] [place] [address] Neutrophils (Bld) [#/Vol] 5.24 10*3/uL Normal 1.45-7.50 [facility] Comment on above: Order Comment: Speci men Type: BLOOD SPECIMENOrdering Facility: [facility] Address: [address] [place] [address] Performed By: #### 5 7021-8 ####[facility] LABCLIA [id number] [place] [address] Neutrophils/100 WBC (Bld) 66.5 % Normal [facility] Comment on above: Order Comment: Speci men Type: BLOOD SPECIMENOrdering Facility: [facility] Address: [address] [place] [address] Performed By: #### 5 7021-8 ####[facility] LABCLIA [id number] [place] [address] Nucleated RBC (Bld) [#/Vol] 10*3/uL Normal <0.01 [facility] Comment on above: Order Comment: Speci men Type: BLOOD SPECIMENOrdering Facility: [facility] Address: [address] [place] [address] Performed By: #### 5 7021-8 ####[facility] LABIA [id number] [place] [address] Nucleated RBC/100 WBC (Bld) [Ratio] 0.0 /100 WBC Normal [facility] Comment on above: Order Comment: Speci men Type: BLOOD SPECIMENOrdering Facility: [facility] Address: [address] [place], [place] [address] Performed By: #### 5 7021-8 ####[facility] LABCLIA [id number] [place] [address] Platelet mean volume (Bld) [Entitic vol] 9.5 fL Normal 9.0-12.7 [facility] Comment on above: Order Comment: Speci men Type: BLOOD SPECIMENOrdering Facility: [facility] Address: [address] [place] [address] Performed By: #### 5 7021-8 ####[facility] LABCLIA [id number] [place] [address] Platelets (Bld) [#/Vol] 479 10*3/uL High 150-400 [facility] Comment on above: Order Comment: Speci men Type: BLOOD SPECIMENOrdering Facility: [facility] Address: [address] [place] [address] Performed By: #### 5 7021-8 ####[facility] LABCLIA [id number] [place] [address] RBC (Bld) [#/Vol] 3.56 10*6/uL Low 4.20-6.00 [facility] Comment on above: Order Comment: Speci men Type: BLOOD SPECIMENOrdering Facility: [facility] Address: [address] [place] [address] Performed By: #### 5 7021-8 ####[facility] LABCLIA [id number] [place] [address] WBC (Bld) [#/Vol] 7.88 10*3/uL Normal 3.70-11.00 [facility] Comment on above: Order Comment: Speci men Type: BLOOD SPECIMENOrdering Facility: [facility] Address: [address] [place] [address] Performed By: #### 5 7021-8 ####[facility] LABCLIA [id number] [place] [address] CNOVSPon 03-30-2023 CNOVSP Normal [facility] Cancer Ag19-9 SerPl-aCncon 1 05-30-2022 Cancer Ag 19-9 Qn 2555.0 [arb'U]/mL High <36.0 [facility] Comment on above: Order Comment: Speci men Type: BLOOD SPECIMENOrdering Facility: [facility] Address: [address] [place] [address] Result Comment: [facility] er antigen 19-9 test is used as an aid in monitoring response to treatment or recurrence in patients with established pancreatic, hepatobiliary, or gastrointestinal malignancies. Clinical correlation is required.The CA 19-9 Antigen test was performed using the [employer] DXI paramagnetic particle chemiluminescent immunoassay method. Results obtained with different assay methods or kits cannot be used interchangeably. Performed By: #### 2 4108-3 ####[facility] LABCLIA [id number] [facility] [id number], [place] [address] [place] Comprehensive metabolic 2000 panelon 03-30-2023 Albumin [Mass/Vol] 4.2 g/dL Normal 3.9-4.9 [facility] Comment on above: Order Comment: Speci men Type: BLOOD SPECIMENOrdering Facility: [facility] Address: [address] [place] [address] Performed By: #### 2 4323-8 ####[facility] LABCLIA [id number] [place] [address] ALP [Catalytic activity/Vol] 124 U/L High 38-113 [facility] Comment on above: Order Comment: Speci men Type: BLOOD SPECIMENOrdering Facility: [facility] Address: [address] [place] [address] Performed By: #### 2 4323-8 ####[facility] LABCLIA [id number] [place] [address] ALT [Catalytic activity/Vol] 20 U/L Normal 10-54 [facility] Comment on above: Order Comment: Speci men Type: BLOOD SPECIMENOrdering Facility: [facility] Address: [address] [place] [address] Performed By: #### 2 4323-8 ####[facility] LABCLIA [id number] [place] [address] Anion gap [Moles/Vol] 7 mmol/L Low 9-18 [facility] Comment on above: Order Comment: Speci men Type: BLOOD SPECIMENOrdering Facility: [facility] Address: [address] [place] [address] Performed By: #### 2 4323-8 ####[facility] LABCLIA [id number] [place] [address] AST [Catalytic activity/Vol] 20 U/L Normal 14-40 [facility] Comment on above: Order Comment: Speci men Type: BLOOD SPECIMENOrdering Facility: [facility] Address: [address] [place] [address] Performed By: #### 2 4323-8 ####[facility] LABCLIA [id number] [place] [address] Bilirubin [Mass/Vol] 1.0 mg/dL Normal 0.2-1.3 [facility] Comment on above: Order Comment: Speci men Type: BLOOD SPECIMENOrdering Facility: [facility] Address: [address] [place] [address] Performed By: #### 2 4323-8 ####[facility] LABCLIA [id number] [place] [address] Calcium [Mass/Vol] 10.5 mg/dL High 8.5-10.2 [facility] Comment on above: Order Comment: Speci men Type: BLOOD SPECIMENOrdering Facility: [facility] Address: [address] [place] [address] Performed By: #### 2 4323-8 ####[facility] LABCLIA [id number] [place] [address] Chloride [Moles/Vol] 104 mmol/L Normal 97-105 [facility] Comment on above: Order Comment: Speci men Type: BLOOD SPECIMENOrdering Facility: [facility] Address: [address] [place] [address] Performed By: #### 2 4323-8 ####[facility] LABCLIA [id number] [place] [address] CO2 [Moles/Vol] 26 mmol/L Normal 22-30 [facility] Comment on above: Order Comment: Speci men Type: BLOOD SPECIMENOrdering Facility: [facility] Address: [address] [place] [address] Performed By: #### 2 4323-8 ####[facility] LABCLIA [id number] [place] [address] Creatinine [Mass/Vol] 0.78 mg/dL Normal 0.73-1.22 [facility] Comment on above: Order Comment: Speci men Type: BLOOD SPECIMENOrdering Facility: [facility] Address: [address] [place] [address] Performed By: #### 2 4323-8 ####[facility] LABCLIA [id number] [place] [address] Creatinine and Glomerular filtration rate.predicted panel (S/P/Bld) 95 mL/min/1.73m??? Normal >=60 [facility] Comment on above: Order Comment: Speci men Type: BLOOD SPECIMENOrdering Facility: [facility] Address: [address] [place] [address] Result Comment: Kathy mated Glomerular Filtration Rate [...] actual GFR. Performed By: #### 2 4323-8 ####[facility] LABCLIA [id number] [place] [address] Glucose [Mass/Vol] 137 mg/dL High 74-99 [facility] Comment on above: Order Comment: Speci men Type: BLOOD SPECIMENOrdering Facility: [facility] Address: [address] [place] [address] Result Comment: The [place] [employer] (ADA) provides guidance for cutoff [...] Standards of Medical Care in Diabetes 2016, [place] [employer]. Diabetes Care. 2016.39(Suppl 1). Performed By: #### 2 4323-8 ####[facility] LABCLIA [id number] [place] [address] Potassium [Moles/Vol] 4.6 mmol/L Normal 3.7-5.1 [facility] Comment on above: Order Comment: Speci men Type: BLOOD SPECIMENOrdering Facility: [facility] Address: [address] [place] [address] Performed By: #### 2 4323-8 ####[facility] LABCLIA [id number] [place] [address] Protein [Mass/Vol] 7.0 g/dL Normal 6.3-8.0 [facility] Comment on above: Order Comment: Speci men Type: BLOOD SPECIMENOrdering Facility: [facility] Address: [address] [place] [address] Performed By: #### 2 4323-8 ####[facility] LABCLIA [id number] [place] [address] Sodium [Moles/Vol] 137 mmol/L Normal 136-144 [facility] Comment on above: Order Comment: Speci men Type: BLOOD SPECIMENOrdering Facility: [facility] Address: [address] [place] [id number] Performed By: #### 2 4323-8 ####[facility] LABCLIA [id number] [place] [address] Urea nitrogen [Mass/Vol] 20 mg/dL Normal 9-24 [facility] Comment on above: Order Comment: Speci men Type: BLOOD SPECIMENOrdering Facility: [facility] Address: [address] [place] [id number] Performed By: #### 2 4323-8 ####[facility] LABCLIA [id number] [place] [address] CBC W Auto Differential pane l (Bld)on 03-08-2023 Basophils (Bld) [#/Vol] 0.04 10*3/uL <0.11 k/uL [facility] Basophils/100 WBC (Bld) 0.9 % [facility] Differential cell count method Nom (Bld) Auto [facility] Eosinophils (Bld) [#/Vol] <0.46 k/uL [facility] Eosinophils/100 WBC (Bld) 0.2 % [facility] Erythrocyte distribution width (RBC) [Ratio] 14.8 % 11.5 - 15.0 % [facility] Hematocrit (Bld) [Volume fraction] 31.4 % Low 39.0 - 51.0 % [facility] Hemoglobin (Bld) [Mass/Vol] 10.2 g/dL Low 13.0 - 17.0 g/dL [facility] Immature granulocytes (Bld) [#/Vol] 0.05 10*3/uL <0.10 k/uL [facility] Immature granulocytes/100 WBC (Bld) 1.1 % [facility] Lymphocytes (Bld) [#/Vol] 1.26 10*3/uL 1.00 - 4.00 k/uL [facility] Lymphocytes/100 WBC (Bld) 28.8 % [facility] MCH (RBC) [Entitic mass] 32.4 pg 26.0 - 34.0 pg [facility] MCHC (RBC) [Mass/Vol] 32.5 g/dL 30.5 - 36.0 g/dL [facility] MCV (RBC) [Entitic vol] 99.7 fL 80.0 - 100.0 fL [facility] Monocytes (Bld) [#/Vol] 0.29 10*3/uL <0.87 k/uL [facility] Monocytes/100 WBC (Bld) 6.6 % [facility] Neutrophils (Bld) [#/Vol] 2.72 10*3/uL 1.45 - 7.50 k/uL [facility] Neutrophils/100 WBC (Bld) 62.4 % [facility] Nucleated RBC (Bld) [#/Vol] <0.01 k/uL [facility] Nucleated RBC/100 WBC (Bld) [Ratio] 0.0 /100 WBC [facility] [facility] mean volume (Bld) [Entitic vol] 9.9 fL 9.0 - 12.7 fL [facility] Platelets (Bld) [#/Vol] 236 10*3/uL 150 - 400 k/uL [facility] RBC (Bld) [#/Vol] 3.15 10*6/uL Low 4.20 - 6.0 0 m/uL [facility] WBC (Bld) [#/Vol] 4.37 10*3/uL 3.70 - 11.00 k/uL [facility] Comprehensive metabolic 2000 panelon 03-08-2023 Albumin [Mass/Vol] 4.2 g/dL 3.9 - 4.9 g/dL [facility] ALP [Catalytic activity/Vol] 128 U/L High 38 - 113 U/L [facility] ALT [Catalytic activity/Vol] 32 U/L 10 - 54 U/L [facility] Anion gap [Moles/Vol] 8 mmol/L Low 9 - 18 mmol/L [facility] AST [Catalytic activity/Vol] 26 U/L 14 - 40 U/L [facility] Bilirubin [Mass/Vol] 1.2 mg/dL 0.2 - 1 .3 mg/dL [facility] Calcium [Mass/Vol] 10.8 mg/dL High 8.5 - 10. 2 mg/dL [facility] Chloride [Moles/Vol] 103 mmol/L 97 - 10 5 mmol/L [facility] CO2 [Moles/Vol] 25 mmol/L 22 - 30 mmol/L [facility] Creatinine [Mass/Vol] 0.94 mg/dL 0.73 - 1.22 mg/dL [facility] Estimated Glomerular Filtration Rate 87 mL/min/1.73m >=60 mL/min/1.73 m [facility] Glucose [Mass/Vol] 138 mg/dL High 74 - 99 mg/dL [facility] Potassium [Moles/Vol] 4.2 mmol/L 3.7 - 5.1 mmol/L [facility] Protein [Mass/Vol] 7.0 g/dL 6.3 - 8.0 g/dL [facility] Sodium [Moles/Vol] 136 mmol/L 136 - 144 mmol/L [facility] Urea nitrogen [Mass/Vol] 15 mg/dL 9 - 24 mg/dL [facility] CBC W Auto Differential pane l (Bld)on 03-01-2023 Basophils (Bld) [#/Vol] 0.04 10*3/uL <0.11 k/uL [facility] Basophils/100 WBC (Bld) 0.5 % [facility] Differential cell count method Nom (Bld) Auto [facility] Eosinophils (Bld) [#/Vol] <0.46 k/uL [facility] Eosinophils/100 WBC (Bld) 0.2 % [facility] Erythrocyte distribution width (RBC) [Ratio] 15.6 % High 11.5 - 15.0 % [facility] Hematocrit (Bld) [Volume fraction] 37.3 % Low 39.0 - 51.0 % [facility] Hemoglobin (Bld) [Mass/Vol] 11.9 g/dL Low 13.0 - 17.0 g/dL [facility] Immature granulocytes (Bld) [#/Vol] 0.07 10*3/uL <0.10 k/uL [facility] Immature granulocytes/100 WBC (Bld) 0.9 % [facility] Lymphocytes (Bld) [#/Vol] 1.45 10*3/uL 1.00 - 4.00 k/uL [facility] Lymphocytes/100 WBC (Bld) 17.9 % [facility] MCH (RBC) [Entitic mass] 32.4 pg 26.0 - 34.0 pg [facility] MCHC (RBC) [Mass/Vol] 31.9 g/dL 30.5 - 36.0 g/dL [facility] MCV (RBC) [Entitic vol] 101.6 fL High 80.0 - 100.0 fL [facility] Monocytes (Bld) [#/Vol] 0.94 10*3/uL High <0.87 k/uL [facility] Monocytes/100 WBC (Bld) 11.6 % [facility] Neutrophils (Bld) [#/Vol] 5.58 10*3/uL 1.45 - 7.50 k/uL [facility] Neutrophils/100 WBC (Bld) 68.9 % [facility] Nucleated RBC (Bld) [#/Vol] <0.01 k/uL [facility] Nucleated RBC/100 WBC (Bld) [Ratio] 0.0 /100 WBC [facility] Platelet mean volume (Bld) [Entitic vol] 9.2 fL 9.0 - 12.7 fL [facility] Platelets (Bld) [#/Vol] 449 10*3/uL High 150 - 400 k/uL [facility] RBC (Bld) [#/Vol] 3.67 10*6/uL Low 4.20 - 6.0 0 m/uL [facility] WBC (Bld) [#/Vol] 8.10 10*3/uL 3.70 - 11.00 k/uL [facility] CBC W Auto Differential pane l (Bld)on 02-01-2023 Basophils (Bld) [#/Vol] <0.11 k/uL [facility] Basophils/100 WBC (Bld) 0.2 % [facility] Differential cell count method Nom (Bld) Auto [facility] Eosinophils (Bld) [#/Vol] <0.46 k/uL [facility] Eosinophils/100 WBC (Bld) 0.2 % [facility] Erythrocyte distribution width (RBC) [Ratio] 14.3 % 11.5 - 15.0 % [facility] Hematocrit (Bld) [Volume fraction] 35.3 % Low 39.0 - 51.0 % [facility] Hemoglobin (Bld) [Mass/Vol] 11.7 g/dL Low 13.0 - 17.0 g/dL [facility] Immature granulocytes (Bld) [#/Vol] 0.05 10*3/uL <0.10 k/uL [facility] Immature granulocytes/100 WBC (Bld) 0.4 % [facility] Lymphocytes (Bld) [#/Vol] 1.68 10*3/uL 1.00 - 4.00 k/uL [facility] Lymphocytes/100 WBC (Bld) 14.6 % [facility] MCH (RBC) [Entitic mass] 32.4 pg 26.0 - 34.0 pg [facility] MCHC (RBC) [Mass/Vol] 33.1 g/dL 30.5 - 36.0 g/dL [facility] MCV (RBC) [Entitic vol] 97.8 fL 80.0 - 100.0 fL [facility] Monocytes (Bld) [#/Vol] 0.70 10*3/uL <0.87 k/uL [facility] Monocytes/100 WBC (Bld) 6.1 % [facility] Neutrophils (Bld) [#/Vol] 9.04 10*3/uL High 1.45 - 7.50 k/uL [facility] Neutrophils/100 WBC (Bld) 78.5 % [facility] Nucleated RBC (Bld) [#/Vol] <0.01 k/uL [facility] Nucleated RBC/100 WBC (Bld) [Ratio] 0.0 /100 WBC [facility] Platelet mean volume (Bld) [Entitic vol] 10.1 fL 9.0 - 12.7 fL [facility] Platelets (Bld) [#/Vol] 267 10*3/uL 150 - 400 k/uL [facility] RBC (Bld) [#/Vol] 3.61 10*6/uL Low 4.20 - 6.0 0 m/uL [facility] WBC (Bld) [#/Vol] 11.51 10*3/uL High 3.70 - 11.00 k/uL [facility] Comprehensive metabolic 2000 panelon 02-01-2023 Albumin [Mass/Vol] 4.2 g/dL 3.9 - 4.9 g/dL [facility] ALP [Catalytic activity/Vol] 139 U/L High 38 - 113 U/L [facility] ALT [Catalytic activity/Vol] 23 U/L 10 - 54 U/L [facility] Anion gap [Moles/Vol] 11 mmol/L 9 - 18 mmol/L [facility] AST [Catalytic activity/Vol] 19 U/L 14 - 40 U/L [facility] Bilirubin [Mass/Vol] 1.3 mg/dL 0.2 - 1 .3 mg/dL [facility] Calcium [Mass/Vol] 10.7 mg/dL High 8.5 - 10. 2 mg/dL [facility] Chloride [Moles/Vol] 102 mmol/L 97 - 10 5 mmol/L [facility] CO2 [Moles/Vol] 23 mmol/L 22 - 30 mmol/L [facility] Creatinine [Mass/Vol] 0.97 mg/dL 0.73 - 1.22 mg/dL [facility] Estimated Glomerular Filtration Rate 83 mL/min/1.73m >=60 mL/min/1.73 m [facility] Glucose [Mass/Vol] 172 mg/dL High 74 - 99 mg/dL [facility] Potassium [Moles/Vol] 4.4 mmol/L 3.7 - 5.1 mmol/L [facility] Protein [Mass/Vol] 7.2 g/dL 6.3 - 8.0 g/dL [facility] Sodium [Moles/Vol] 136 mmol/L 136 - 144 mmol/L [facility] Urea nitrogen [Mass/Vol] 22 mg/dL 9 - 24 mg/dL [facility] CT cervical spine wo [facility] 0 12-15-2022 CT cervical spine wo [facility] [place] [address] CT Scan Report Signed Patient: Trinity Perry MR#: [id number] [birth year] : 1950 Acct:[id number] Age/Sex: 72 / M ADM Date: 12/15/22 Loc: ER Room: Type: PRE ER Attending Dr: Copies to: Jemma Padilla APRN Ordering Provider: Jemma Padilla APRN Date of Service: 12/15/22 CT/CT head/brain wo con: injury ([id number]) CT/CT cervical spine wo con: fall CT [...] FRACTURE Impression dictated by: Ronnie Saldaña Jr., Jossy12/15/2022 3:56 PM Dictation Location: [place] [address] Transcribed By: [facility] 12/15/22 1556 Dictated By: Ronnie Saldaña Jr, DO 12/15/22 1551 Signed By: 12/15/22 1556 Normal [facility] CBC W Auto Differential pane l (Bld)on 12-14-2022 Basophils (Bld) [#/Vol] 0.03 10*3/uL <0.11 k/uL [facility] Basophils/100 WBC (Bld) 0.5 % [facility] Differential cell count method Nom (Bld) Auto [facility] Eosinophils (Bld) [#/Vol] <0.46 k/uL [facility] Eosinophils/100 WBC (Bld) 0.2 % [facility] Erythrocyte distribution width (RBC) [Ratio] 19.2 % High 11.5 - 15.0 % [facility] Hematocrit (Bld) [Volume fraction] 33.4 % Low 39.0 - 51.0 % [facility] Hemoglobin (Bld) [Mass/Vol] 10.5 g/dL Low 13.0 - 17.0 g/dL [facility] Immature granulocytes (Bld) [#/Vol] <0.10 k/uL [facility] Immature granulocytes/100 WBC (Bld) 0.3 % [facility] Lymphocytes (Bld) [#/Vol] 1.25 10*3/uL 1.00 - 4.00 k/uL [facility] Lymphocytes/100 WBC (Bld) 19.1 % [facility] MCH (RBC) [Entitic mass] 32.0 pg 26.0 - 34.0 pg [facility] MCHC (RBC) [Mass/Vol] 31.4 g/dL 30.5 - 36.0 g/dL [facility] MCV (RBC) [Entitic vol] 101.8 fL High 80.0 - 100.0 fL [facility] Monocytes (Bld) [#/Vol] 0.56 10*3/uL <0.87 k/uL [facility] Monocytes/100 WBC (Bld) 8.6 % [facility] Neutrophils (Bld) [#/Vol] 4.67 10*3/uL 1.45 - 7.50 k/uL [facility] Neutrophils/100 WBC (Bld) 71.3 % [facility] Nucleated RBC (Bld) [#/Vol] <0.01 k/uL [facility] Nucleated RBC/100 WBC (Bld) [Ratio] 0.0 /100 WBC [facility] Platelet mean volume (Bld) [Entitic vol] 9.3 fL 9.0 - 12.7 fL [facility] Platelets (Bld) [#/Vol] 362 10*3/uL 150 - 400 k/uL [facility] RBC (Bld) [#/Vol] 3.28 10*6/uL Low 4.20 - 6.0 0 m/uL [facility] WBC (Bld) [#/Vol] 6.54 10*3/uL 3.70 - 11.00 k/uL [facility] Comprehensive metabolic 2000 panelon 12-14-2022 Albumin [Mass/Vol] 3.8 g/dL Low 3.9 - 4.9 g/dL [facility] ALP [Catalytic activity/Vol] 138 U/L High 38 - 113 U/L [facility] ALT [Catalytic activity/Vol] 25 U/L 10 - 54 U/L [facility] Anion gap [Moles/Vol] 8 mmol/L Low 9 - 18 mmol/L [facility] AST [Catalytic activity/Vol] 22 U/L 14 - 40 U/L [facility] Bilirubin [Mass/Vol] 0.9 mg/dL 0.2 - 1 .3 mg/dL [facility] Calcium [Mass/Vol] 10.5 mg/dL High 8.5 - 10. 2 mg/dL [facility] Chloride [Moles/Vol] 104 mmol/L 97 - 10 5 mmol/L [facility] CO2 [Moles/Vol] 24 mmol/L 22 - 30 mmol/L [facility] Creatinine [Mass/Vol] 0.85 mg/dL 0.73 - 1.22 mg/dL [facility] Estimated Glomerular Filtration Rate 93 mL/min/1.73m >=60 mL/min/1.73 m [facility] Glucose [Mass/Vol] 158 mg/dL High 74 - 99 mg/dL [facility] Potassium [Moles/Vol] 4.1 mmol/L 3.7 - 5.1 mmol/L [facility] Protein [Mass/Vol] 7.0 g/dL 6.3 - 8.0 g/dL [facility] Sodium [Moles/Vol] 136 mmol/L 136 - 144 mmol/L [facility] Urea nitrogen [Mass/Vol] 16 mg/dL 9 - 24 mg/dL [facility] CBC W Auto Differential pane l (Bld)on 11-30-2022 Basophils (Bld) [#/Vol] 0.03 10*3/uL <0.11 k/uL [facility] Basophils/100 WBC (Bld) 0.5 % [facility] Differential cell count method Nom (Bld) Auto [facility] Eosinophils (Bld) [#/Vol] <0.46 k/uL [facility] Eosinophils/100 WBC (Bld) 0.3 % [facility] Erythrocyte distribution width (RBC) [Ratio] 14.1 % 11.5 - 15.0 % [facility] Hematocrit (Bld) [Volume fraction] 25.2 % Low 39.0 - 51.0 % [facility] Hemoglobin (Bld) [Mass/Vol] 8.2 g/dL Low 13.0 - 17.0 g/dL [facility] Immature granulocytes (Bld) [#/Vol] 0.07 10*3/uL <0.10 k/uL [facility] Immature granulocytes/100 WBC (Bld) 1.2 % [facility] Lymphocytes (Bld) [#/Vol] 1.86 10*3/uL 1.00 - 4.00 k/uL [facility] Lymphocytes/100 WBC (Bld) 30.9 % [facility] MCH (RBC) [Entitic mass] 31.4 pg 26.0 - 34.0 pg [facility] MCHC (RBC) [Mass/Vol] 32.5 g/dL 30.5 - 36.0 g/dL [facility] MCV (RBC) [Entitic vol] 96.6 fL 80.0 - 100.0 fL [facility] Monocytes (Bld) [#/Vol] 0.26 10*3/uL <0.87 k/uL [facility] Monocytes/100 WBC (Bld) 4.3 % [facility] Neutrophils (Bld) [#/Vol] 3.78 10*3/uL 1.45 - 7.50 k/uL [facility] Neutrophils/100 WBC (Bld) 62.8 % [facility] Nucleated RBC (Bld) [#/Vol] <0.01 k/uL [facility] Nucleated RBC/100 WBC (Bld) [Ratio] 0.0 /100 WBC [facility] Platelet mean volume (Bld) [Entitic vol] 10.0 fL 9.0 - 12.7 fL [facility] Platelets (Bld) [#/Vol] 217 10*3/uL 150 - 400 k/uL [facility] RBC (Bld) [#/Vol] 2.61 10*6/uL Low 4.20 - 6.0 0 m/uL [facility] WBC (Bld) [#/Vol] 6.02 10*3/uL 3.70 - 11.00 k/uL [facility] Comprehensive metabolic 2000 panelon 11-30-2022 Albumin [Mass/Vol] 3.3 g/dL Low 3.9 - 4.9 g/dL [facility] ALP [Catalytic activity/Vol] 121 U/L High 38 - 113 U/L [facility] ALT [Catalytic activity/Vol] 17 U/L 10 - 54 U/L [facility] Anion gap [Moles/Vol] 6 mmol/L Low 9 - 18 mmol/L [facility] AST [Catalytic activity/Vol] 24 U/L 14 - 40 U/L [facility] Bilirubin [Mass/Vol] 1.0 mg/dL 0.2 - 1 .3 mg/dL [facility] Calcium [Mass/Vol] 10.6 mg/dL High 8.5 - 10. 2 mg/dL [facility] Chloride [Moles/Vol] 103 mmol/L 97 - 10 5 mmol/L [facility] CO2 [Moles/Vol] 25 mmol/L 22 - 30 mmol/L [facility] Creatinine [Mass/Vol] 0.80 mg/dL 0.73 - 1.22 mg/dL [facility] Estimated Glomerular Filtration Rate 95 mL/min/1.73m >=60 mL/min/1.73 m [facility] Glucose [Mass/Vol] 273 mg/dL High 74 - 99 mg/dL [facility] Potassium [Moles/Vol] 4.0 mmol/L 3.7 - 5.1 mmol/L [facility] Protein [Mass/Vol] 6.8 g/dL 6.3 - 8.0 g/dL [facility] Sodium [Moles/Vol] 134 mmol/L Low 136 - 144 mmol/L [facility] Urea nitrogen [Mass/Vol] 15 mg/dL 9 - 24 mg/dL [facility] CBC W Auto Differential pane l (Bld)on 11-23-2022 Basophils (Bld) [#/Vol] 0.03 10*3/uL <0.11 k/uL [facility] Basophils/100 WBC (Bld) 0.3 % [facility] Differential cell count method Nom (Bld) Auto [facility] Eosinophils (Bld) [#/Vol] 0.05 10*3/uL <0.46 k/uL [facility] Eosinophils/100 WBC (Bld) 0.5 % [facility] Erythrocyte distribution width (RBC) [Ratio] 13.9 % 11.5 - 15.0 % [facility] Hematocrit (Bld) [Volume fraction] 32.6 % Low 39.0 - 51.0 % [facility] Hemoglobin (Bld) [Mass/Vol] 10.7 g/dL Low 13.0 - 17.0 g/dL [facility] Immature granulocytes (Bld) [#/Vol] 0.04 10*3/uL <0.10 k/uL [facility] Immature granulocytes/100 WBC (Bld) 0.4 % [facility] Lymphocytes (Bld) [#/Vol] 1.57 10*3/uL 1.00 - 4.00 k/uL [facility] Lymphocytes/100 WBC (Bld) 14.5 % [facility] MCH (RBC) [Entitic mass] 31.7 pg 26.0 - 34.0 pg [facility] MCHC (RBC) [Mass/Vol] 32.8 g/dL 30.5 - 36.0 g/dL [facility] MCV (RBC) [Entitic vol] 96.4 fL 80.0 - 100.0 fL [facility] Monocytes (Bld) [#/Vol] 0.77 10*3/uL <0.87 k/uL [facility] Monocytes/100 WBC (Bld) 7.1 % [facility] Neutrophils (Bld) [#/Vol] 8.35 10*3/uL High 1.45 - 7.50 k/uL [facility] Neutrophils/100 WBC (Bld) 77.2 % [facility] Nucleated RBC (Bld) [#/Vol] <0.01 k/uL [facility] Nucleated RBC/100 WBC (Bld) [Ratio] 0.0 /100 WBC [facility] Platelet mean volume (Bld) [Entitic vol] 10.9 fL 9.0 - 12.7 fL [facility] Platelets (Bld) [#/Vol] 269 10*3/uL 150 - 400 k/uL [facility] RBC (Bld) [#/Vol] 3.38 10*6/uL Low 4.20 - 6.0 0 m/uL [facility] WBC (Bld) [#/Vol] 10.81 10*3/uL 3.70 - 11.00 k/uL [facility] Comprehensive metabolic 2000 panelon 11-23-2022 Albumin [Mass/Vol] 3.5 g/dL Low 3.9 - 4.9 g/dL [facility] ALP [Catalytic activity/Vol] 136 U/L High 38 - 113 U/L [facility] ALT [Catalytic activity/Vol] 13 U/L 10 - 54 U/L [facility] Anion gap [Moles/Vol] 9 mmol/L 9 - 18 mmol/L [facility] AST [Catalytic activity/Vol] 13 U/L Low 14 - 40 U/L [facility] Bilirubin [Mass/Vol] 1.0 mg/dL 0.2 - 1 .3 mg/dL [facility] Calcium [Mass/Vol] 10.4 mg/dL High 8.5 - 10. 2 mg/dL [facility] Chloride [Moles/Vol] 101 mmol/L 97 - 10 5 mmol/L [facility] CO2 [Moles/Vol] 23 mmol/L 22 - 30 mmol/L [facility] Creatinine [Mass/Vol] 0.80 mg/dL 0.73 - 1.22 mg/dL [facility] Estimated Glomerular Filtration Rate 95 mL/min/1.73m >=60 mL/min/1.73 m [facility] Glucose [Mass/Vol] 251 mg/dL High 74 - 99 mg/dL [facility] Potassium [Moles/Vol] 4.1 mmol/L 3.7 - 5.1 mmol/L [facility] Protein [Mass/Vol] 7.1 g/dL 6.3 - 8.0 g/dL [facility] Sodium [Moles/Vol] 133 mmol/L Low 136 - 144 mmol/L [facility] Urea nitrogen [Mass/Vol] 15 mg/dL 9 - 24 mg/dL [facility] CBC W Auto Differential pane l (Bld)on 11-10-2022 Basophils (Bld) [#/Vol] 0.03 10*3/uL <0.11 k/uL [facility] Basophils/100 WBC (Bld) 0.4 % [facility] Differential cell count method Nom (Bld) Auto [facility] Eosinophils (Bld) [#/Vol] 0.04 10*3/uL <0.46 k/uL [facility] Eosinophils/100 WBC (Bld) 0.5 % [facility] Erythrocyte distribution width (RBC) [Ratio] 14.2 % 11.5 - 15.0 % [facility] Hematocrit (Bld) [Volume fraction] 37.4 % Low 39.0 - 51.0 % [facility] Hemoglobin (Bld) [Mass/Vol] 12.2 g/dL Low 13.0 - 17.0 g/dL [facility] Immature granulocytes (Bld) [#/Vol] 0.04 10*3/uL <0.10 k/uL [facility] Immature granulocytes/100 WBC (Bld) 0.5 % [facility] Lymphocytes (Bld) [#/Vol] 1.39 10*3/uL 1.00 - 4.00 k/uL [facility] Lymphocytes/100 WBC (Bld) 17.4 % [facility] MCH (RBC) [Entitic mass] 31.6 pg 26.0 - 34.0 pg [facility] MCHC (RBC) [Mass/Vol] 32.6 g/dL 30.5 - 36.0 g/dL [facility] MCV (RBC) [Entitic vol] 96.9 fL 80.0 - 100.0 fL [facility] Monocytes (Bld) [#/Vol] 0.53 10*3/uL <0.87 k/uL [facility] Monocytes/100 WBC (Bld) 6.6 % [facility] Neutrophils (Bld) [#/Vol] 5.97 10*3/uL 1.45 - 7.50 k/uL [facility] Neutrophils/100 WBC (Bld) 74.6 % [facility] Nucleated RBC (Bld) [#/Vol] <0.01 k/uL [facility] Nucleated RBC/100 WBC (Bld) [Ratio] 0.0 /100 WBC [facility] Platelet mean volume (Bld) [Entitic vol] 11.3 fL 9.0 - 12.7 fL [facility] Platelets (Bld) [#/Vol] 254 10*3/uL 150 - 400 k/uL [facility] RBC (Bld) [#/Vol] 3.86 10*6/uL Low 4.20 - 6.0 0 m/uL [facility] WBC (Bld) [#/Vol] 8.00 10*3/uL 3.70 - 11.00 k/uL [facility] Comprehensive metabolic 2000 panelon 11-10-2022 Albumin [Mass/Vol] 4.0 g/dL 3.9 - 4.9 g/dL [facility] ALP [Catalytic activity/Vol] 180 U/L High 38 - 113 U/L [facility] ALT [Catalytic activity/Vol] 26 U/L 10 - 54 U/L [facility] Anion gap [Moles/Vol] 9 mmol/L 9 - 18 mmol/L [facility] AST [Catalytic activity/Vol] 21 U/L 14 - 40 U/L [facility] Bilirubin [Mass/Vol] 0.9 mg/dL 0.2 - 1 .3 mg/dL [facility] Calcium [Mass/Vol] 11.0 mg/dL High 8.5 - 10. 2 mg/dL [facility] Chloride [Moles/Vol] 100 mmol/L 97 - 10 5 mmol/L [facility] CO2 [Moles/Vol] 23 mmol/L 22 - 30 mmol/L [facility] Creatinine [Mass/Vol] 0.77 mg/dL 0.73 - 1.22 mg/dL [facility] Estimated Glomerular Filtration Rate 96 mL/min/1.73m >=60 mL/min/1.73 m [facility] Glucose [Mass/Vol] 782 mg/dL High 74 - 99 mg/dL [facility] Potassium [Moles/Vol] 4.7 mmol/L 3.7 - 5.1 mmol/L [facility] Protein [Mass/Vol] 7.4 g/dL 6.3 - 8.0 g/dL [facility] Sodium [Moles/Vol] 132 mmol/L Low 136 - 144 mmol/L [facility] Urea nitrogen [Mass/Vol] 16 mg/dL 9 - 24 mg/dL [facility] CT Abdomen and Pelvis W cont rast [place] 11-03-2022 IMPRESSION: 1. Since 07/27/2022, unchanged diffuse retroperitoneal and central mesenteric lymphadenopathy. Unchanged metastatic deposit along the anterior right kidney. 2. New geographic regions of hypodensity along the inferior margin of the left hepatic lobe, likely evolving sites of steatosis. Attention on subsequent studies is suggested. 3. Please refer to concurrently acquired and separately reported chest CT for findings related to the thorax. Transcribe Date/Time: Nov 03 2022 11:42A Dictated by: ALDA SANCHEZ MD This examination was interpreted and the report reviewed and electronically signed by: ALDA SANCHEZ MD on Nov 03 2022 1:00PM EST Thank you for allowing us to participate in the care of your patient. Should there be any questions regarding this interpretation, please call [phone]. If you are unable to reach us at the number above, please feel free to contact [facility] at [phone]. 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 TECHNIQUE: CT of the abdomen and pelvis was performed using standard technique, scanning from just above the dome of the diaphragm to the symphysis pubis. MQ: CTAP_3 Contrast: IV: 150 ml of Omnipaque 300 Oral: 500 ml of dilute Omnipaque 240 CT Radiation dose: Integrated Dose-length product (DLP) for this visit = 1074 mGy*cm. CT Dose Reduction Employed: Automated exposure control (AEC) COMPARISON: CT abdomen/pelvis 07/27/2022; 05/25/2022; 02/15/2022 RESULT: Liver: Normal liver morphology. There are new geographic regions of hypodensity along the inferior margin of the lateral hepatic segment. Biliary: No bile duct dilation. The gallbladder is absent. Spleen: No mass. No splenomegaly. Pancreas: Operative changes reflect Whipple procedure. A pancreatic duct stent is in place. The main pancreatic duct is nondilated. No pancreatic mass. Status post Whipple procedure. Adrenals: The adrenals are unremarkable. Kidneys: There are multiple bilateral renal cysts, measuring up to 7.2 cm. A 2.5 x 1.6 cm mass along the anterior right kidney (series 2, image 62) is unchanged and likely represents a retroperitoneal metastatic lesion. No collecting system dilatation. GI tract: The bowel is normal in caliber and without evidence of wall thickening or obstruction. The gastrojejunostomy is widely patent. The appendix is normal. Lymph nodes: There are multiple heterogeneously enhancing enlarged retroperitoneal and central mesenteric lymph nodes. Electric Fan [employer]er measurements are detailed as follows on series 2: -Image 51, central mesentery, 4.3 x 3 cm (unchanged) -Image 60, left para-aortic, 3.1 x 4 cm (unchanged) -Image 68, anterior aortocaval, 3.2 x 4.5 cm (unchanged) -Image 66, posterior paracaval, 0.9 cm in short axis (unchanged) Mesentery/Peritoneum: No ascites or mass. Retroperitoneum: No mass. Vasculature: - Abdominal aorta and iliac arteries: Atherosclerotic calcifications without aneurysm. - Celiac and SMA: Atherosclerotic calcifications at the origins. - Portal venous system (SMV, splenic vein, portal vein and branches): Patent. - Hepatic veins: Patent. Pelvis: No mass, ascites or fluid collection. The rectum, prostate and urinary bladder are unremarkable. There is a fat-containing left inguinal hernia. Bones/Soft Tissues: No destructive lytic or blastic osseous abnormality. Degenerative change involves the lumbar spine. Unchanged mild diffuse marrow heterogeneity, likely secondary to marrow reconversion. Lower thorax: A chest CT performed will be reported separately. Cable Installer Repairer Helper (topogram) images: No additional findings. 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 TECHNIQUE: CT of the abdomen and pelvis was performed using standard technique, scanning from just above the dome of the diaphragm to the symphysis pubis. MQ: CTAP_3 Contrast: IV: 150 ml of Omnipaque 300 Oral: 500 ml of dilute Omnipaque 240 CT Radiation dose: Integrated Dose-length product (DLP) for this visit = 1074 mGy*cm. CT Dose Reduction Employed: Automated exposure control (AEC) COMPARISON: CT abdomen/pelvis 07/27/2022; 05/25/2022; 02/15/2022 RESULT: Liver: Normal liver morphology. There are new geographic regions of hypodensity along the inferior margin of the lateral hepatic segment. Biliary: No bile duct dilation. The gallbladder is absent. Spleen: No mass. No splenomegaly. Pancreas: Operative changes reflect Whipple procedure. A pancreatic duct stent is in place. The main pancreatic duct is nondilated. No pancreatic mass. Status post Whipple procedure. Adrenals: The adrenals are unremarkable. Kidneys: There are multiple bilateral renal cysts, measuring up to 7.2 cm. A 2.5 x 1.6 cm mass along the anterior right kidney (series 2, image 62) is unchanged and likely represents a retroperitoneal metastatic lesion. No collecting system dilatation. GI tract: The bowel is normal in caliber and without evidence of wall thickening or obstruction. The gastrojejunostomy is widely patent. The appendix is normal. Lymph nodes: There are multiple heterogeneously enhancing enlarged retroperitoneal and central mesenteric lymph nodes. Electric Fan Assembler measurements are detailed as follows on series 2: -Image 51, central mesentery, 4.3 x 3 cm (unchanged) -Image 60, left para-aortic, 3.1 x 4 cm (unchanged) -Image 68, anterior aortocaval, 3.2 x 4.5 cm (unchanged) -Image 66, posterior paracaval, 0.9 cm in short axis (unchanged) Mesentery/Peritoneum: No ascites or mass. Retroperitoneum: No mass. Vasculature: - Abdominal aorta and iliac arteries: Atherosclerotic calcifications without aneurysm. - Celiac and SMA: Atherosclerotic calcifications at the origins. - Portal venous system (SMV, splenic vein, portal vein and branches): Patent. - Hepatic veins: Patent. Pelvis: No mass, ascites or fluid collection. The rectum, prostate and urinary bladder are unremarkable. There is a fat-containing left inguinal hernia. Bones/Soft Tissues: No destructive lytic or blastic osseous abnormality. Degenerative change involves the lumbar spine. Unchanged mild diffuse marrow heterogeneity, likely secondary to marrow reconversion. Lower thorax: A chest CT performed will be reported separately. Cable Installer Repairer Helper (topogram) images: No additional findings. IMPRESSION IMPRESSION: 1. Since 07/27/2022, unchanged diffuse retroperitoneal and central mesenteric lymphadenopathy. Unchanged metastatic deposit along the anterior right kidney. 2. New geographic regions of hypodensity along the inferior margin of the left hepatic lobe, likely evolving sites of steatosis. Attention on subsequent studies is suggested. 3. Please refer to concurrently acquired and separately reported chest CT for findings related to the thorax. Transcribe Date/Time: Nov 03 2022 11:42A Dictated by: ALDA SANCHEZ MD This examination was interpreted and the report reviewed and electronically signed by: ALDA SANCHEZ MD on Nov 03 2022 1:00PM EST Thank you for allowing us to participate in the care of your patient. Should there be any questions regarding this interpretation, please call [phone]. If you are unable to reach us at the number above, please feel free to contact [facility] at [phone]. [facility] CT Chest W contrast [place] IMPRESSION: 1. Since 07/27/2022, decrease in right upper lobe tree-in-bud opacities, compatible with resolving infection/inflammation. 2. Additional nonspecific noncalcified pulmonary nodules measuring up to 0.7 cm are unchanged. 3. Unchanged 0.9 cm retrosternal nodule/lymph node. No progressive lymphadenopathy. 4. Please refer to concurrently acquired and separately reported abdomen CT for findings related to the upper abdomen. Transcribe Date/Time: Nov 03 2022 12:14P Dictated by: ALDA SANCHEZ MD This examination was interpreted and the report reviewed and electronically signed by: ALDA SANCHEZ MD on Nov 03 2022 1:02PM EST Thank you for allowing us to participate in the care of your patient. Should there be any questions regarding this interpretation, please call [phone]. If you are unable to reach us at the number above, please feel free to contact [facility] at [phone]. DIVISION OF RADIOLOGY * * *Final Report* * * DATE OF EXAM: Nov 03 2022 10:35AM [facility] 0539 - CT CHEST W IVCON / PROCEDURE REASON: Malignant neoplasm of head of pancreas (HCC) * * * * Physician Interpretation * * * * RESULT: EXAMINATION: CHEST CT WITH CONTRAST CLINICAL HISTORY: Pancreatic head neoplasm, status post Whipple procedure Technique: Spiral CT acquisition of the chest from the thoracic inlet to the upper abdomen following IV contrast. MQ: CTCW_6 Contrast: 150 mL Omnipaque [address] Radiation dose: Integrated Dose-length product (DLP) for this visit = 1074 mGy*cm CT Dose Reduction Employed: Automated exposure control (AEC) Comparison: CT chest 07/27/2022; 05/25/2022; 03/07/2022 RESULT: Limitations: None. Lines, tubes, and devices: The tip of a right chest wall port extends to the superior cavoatrial junction. Lung parenchyma and airways: No dense airspace consolidation. There are multifocal tree-in-bud opacities within the right upper lobe, which have overall decreased since 07/27/2022, compatible with resolving infection/inflammation. No new airspace consolidation. The central tracheobronchial tree is patent. There are a few nonspecific noncalcified pulmonary nodules, detailed as follows on series 3: -Image 123, right lower lobe, 0.7 cm (unchanged) -Image 91, left upper lobe, 0.3 cm (unchanged) -Image 147, left lower lobe, 0.3 cm (unchanged) No enlarging suspicious nodule is identified. Pleural space: No pleural effusion. No pleural thickening. Lower neck, lymph nodes, and mediastinum: The imaged thyroid is unremarkable. No supraclavicular, axillary, mediastinal or hilar lymphadenopathy. A 0.9 cm retrosternal nodule/lymph node (series 2, image 55) is unchanged. No progressive lymphadenopathy. Calcified mediastinal and right hilar lymph nodes are compatible with prior granulomatous disease. Heart, pericardium, and thoracic vessels: The thoracic aorta and main pulmonary artery are normal in caliber. The cardiac chambers are normal in size. No coronary artery atherosclerotic calcifications are noted, although the study is not optimized for coronary assessment. No pericardial effusion or thickening. Bones and soft tissues: No destructive bone lesion. Chest wall is unremarkable. Upper abdomen: Please refer to concurrently acquired and separately reported abdomen CT for findings related to the upper abdomen. Cable Installer Repairer Helper (topogram) images: No additional findings. DIVISION OF RADIOLOGY Provider, [facility] - 11/03/2022 * * *Final Report* * * DATE OF EXAM: Nov 03 2022 10:35AM [facility] 0539 - CT CHEST W IVCON / PROCEDURE REASON: Malignant neoplasm of head of pancreas (HCC) * * * * Physician Interpretation * * * * RESULT: EXAMINATION: CHEST CT WITH CONTRAST CLINICAL HISTORY: Pancreatic head neoplasm, status post Whipple procedure Technique: Spiral CT acquisition of the chest from the thoracic inlet to the upper abdomen following IV contrast. MQ: CTCW_6 Contrast: 150 mL Omnipaque [address] Radiation dose: Integrated Dose-length product (DLP) for this visit = 1074 mGy*cm CT Dose Reduction Employed: Automated exposure control (AEC) Comparison: CT chest 07/27/2022; 05/25/2022; 03/07/2022 RESULT: Limitations: None. Lines, tubes, and devices: The tip of a right chest wall port extends to the superior cavoatrial junction. Lung parenchyma and airways: No dense airspace consolidation. There are multifocal tree-in-bud opacities within the right upper lobe, which have overall decreased since 07/27/2022, compatible with resolving infection/inflammation. No new airspace consolidation. The central tracheobronchial tree is patent. There are a few nonspecific noncalcified pulmonary nodules, detailed as follows on series 3: -Image 123, right lower lobe, 0.7 cm (unchanged) -Image 91, left upper lobe, 0.3 cm (unchanged) -Image 147, left lower lobe, 0.3 cm (unchanged) No enlarging suspicious nodule is identified. Pleural space: No pleural effusion. No pleural thickening. Lower neck, lymph nodes, and mediastinum: The imaged thyroid is unremarkable. No supraclavicular, axillary, mediastinal or hilar lymphadenopathy. A 0.9 cm retrosternal nodule/lymph node (series 2, image 55) is unchanged. No progressive lymphadenopathy. Calcified mediastinal and right hilar lymph nodes are compatible with prior granulomatous disease. Heart, pericardium, and thoracic vessels: The thoracic aorta and main pulmonary artery are normal in caliber. The cardiac chambers are normal in size. No coronary artery atherosclerotic calcifications are noted, although the study is not optimized for coronary assessment. No pericardial effusion or thickening. Bones and soft tissues: No destructive bone lesion. Chest wall is unremarkable. Upper abdomen: Please refer to concurrently acquired and separately reported abdomen CT for findings related to the upper abdomen. Cable Installer Repairer Helper (topogram) images: No additional findings. IMPRESSION IMPRESSION: 1. Since 07/27/2022, decrease in right upper lobe tree-in-bud opacities, compatible with resolving infection/inflammation. 2. Additional nonspecific noncalcified pulmonary nodules measuring up to 0.7 cm are unchanged. 3. Unchanged 0.9 cm retrosternal nodule/lymph node. No progressive lymphadenopathy. 4. Please refer to concurrently acquired and separately reported abdomen CT for findings related to the upper abdomen. Transcribe Date/Time: Nov 03 2022 12:14P Dictated by: ALDA SANCHEZ MD This examination was interpreted and the report reviewed and electronically signed by: ALDA SANCHEZ MD on Nov 03 2022 1:02PM EST Thank you for allowing us to participate in the care of your patient. Should there be any questions regarding this interpretation, please call [phone]. If you are unable to reach us at the number above, please feel free to contact [facility] at [phone]. [facility] CT Chest W contrast IVOrdere d By: [facility] Provider on 11-03-2022 [facility] No Panel Informationon 11-03 Radiology Study observation (narrative) [facility] CBC W Auto Differential pane l (Bld)on 09-29-2022 Basophils (Bld) [#/Vol] <0.11 k/uL [facility] Basophils/100 WBC (Bld) 0.2 % [facility] Differential cell count method Nom (Bld) Auto [facility] Eosinophils (Bld) [#/Vol] 0.06 10*3/uL <0.46 k/uL [facility] Eosinophils/100 WBC (Bld) 0.7 % [facility] Erythrocyte distribution width (RBC) [Ratio] 14.3 % 11.5 - 15.0 % [facility] Hematocrit (Bld) [Volume fraction] 35.6 % Low 39.0 - 51.0 % [facility] Hemoglobin (Bld) [Mass/Vol] 11.3 g/dL Low 13.0 - 17.0 g/dL [facility] Immature granulocytes (Bld) [#/Vol] <0.10 k/uL [facility] Immature granulocytes/100 WBC (Bld) 0.2 % [facility] Lymphocytes (Bld) [#/Vol] 1.48 10*3/uL 1.00 - 4.00 k/uL [facility] Lymphocytes/100 WBC (Bld) 17.4 % [facility] MCH (RBC) [Entitic mass] 31.1 pg 26.0 - 34.0 pg [facility] MCHC (RBC) [Mass/Vol] 31.7 g/dL 30.5 - 36.0 g/dL [facility] MCV (RBC) [Entitic vol] 98.1 fL 80.0 - 100.0 fL [facility] Monocytes (Bld) [#/Vol] 0.68 10*3/uL <0.87 k/uL [facility] Monocytes/100 WBC (Bld) 8.0 % [facility] Neutrophils (Bld) [#/Vol] 6.24 10*3/uL 1.45 - 7.50 k/uL [facility] Neutrophils/100 WBC (Bld) 73.5 % [facility] Nucleated RBC (Bld) [#/Vol] <0.01 k/uL [facility] Nucleated RBC/100 WBC (Bld) [Ratio] 0.0 /100 WBC [facility] Platelet mean volume (Bld) [Entitic vol] 10.6 fL 9.0 - 12.7 fL [facility] Platelets (Bld) [#/Vol] 260 10*3/uL 150 - 400 k/uL [facility] RBC (Bld) [#/Vol] 3.63 10*6/uL Low 4.20 - 6.0 0 m/uL [facility] WBC (Bld) [#/Vol] 8.50 10*3/uL 3.70 - 11.00 k/uL [facility] Comprehensive metabolic 2000 panelon 09-29-2022 Albumin [Mass/Vol] 4.0 g/dL 3.9 - 4.9 g/dL [facility] ALP [Catalytic activity/Vol] 170 U/L High 38 - 113 U/L [facility] ALT [Catalytic activity/Vol] 23 U/L 10 - 54 U/L [facility] Anion gap [Moles/Vol] 9 mmol/L 9 - 18 mmol/L [facility] AST [Catalytic activity/Vol] 18 U/L 14 - 40 U/L [facility] Bilirubin [Mass/Vol] 1.1 mg/dL 0.2 - 1 .3 mg/dL [facility] Calcium [Mass/Vol] 10.4 mg/dL High 8.5 - 10. 2 mg/dL [facility] Chloride [Moles/Vol] 100 mmol/L 97 - 10 5 mmol/L [facility] CO2 [Moles/Vol] 25 mmol/L 22 - 30 mmol/L [facility] Creatinine [Mass/Vol] 0.75 mg/dL 0.73 - 1.22 mg/dL [facility] Estimated Glomerular Filtration Rate 96 mL/min/1.73m >=60 mL/min/1.73 m [facility] Glucose [Mass/Vol] 377 mg/dL High 74 - 99 mg/dL [facility] Potassium [Moles/Vol] 5.0 mmol/L 3.7 - 5.1 mmol/L [facility] Protein [Mass/Vol] 7.1 g/dL 6.3 - 8.0 g/dL [facility] Sodium [Moles/Vol] 134 mmol/L Low 136 - 144 mmol/L [facility] Urea nitrogen [Mass/Vol] 19 mg/dL 9 - 24 mg/dL [facility] CBC W Auto Differential pane l (Bld)on 08-02-2022 Basophils (Bld) [#/Vol] <0.11 k/uL [facility] Basophils/100 WBC (Bld) 0.2 % [facility] Differential cell count method Nom (Bld) Auto [facility] Eosinophils (Bld) [#/Vol] 0.07 10*3/uL <0.46 k/uL [facility] Eosinophils/100 WBC (Bld) 0.7 % [facility] Erythrocyte distribution width (RBC) [Ratio] 15.3 % High 11.5 - 15.0 % [facility] Hematocrit (Bld) [Volume fraction] 35.3 % Low 39.0 - 51.0 % [facility] Hemoglobin (Bld) [Mass/Vol] 11.5 g/dL Low 13.0 - 17.0 g/dL [facility] Immature granulocytes (Bld) [#/Vol] 0.03 10*3/uL <0.10 k/uL [facility] Immature granulocytes/100 WBC (Bld) 0.3 % [facility] Lymphocytes (Bld) [#/Vol] 1.91 10*3/uL 1.00 - 4.00 k/uL [facility] Lymphocytes/100 WBC (Bld) 20.2 % [facility] MCH (RBC) [Entitic mass] 31.3 pg 26.0 - 34.0 pg [facility] MCHC (RBC) [Mass/Vol] 32.6 g/dL 30.5 - 36.0 g/dL [facility] MCV (RBC) [Entitic vol] 96.2 fL 80.0 - 100.0 fL [facility] Monocytes (Bld) [#/Vol] 0.81 10*3/uL <0.87 k/uL [facility] Monocytes/100 WBC (Bld) 8.6 % [facility] Neutrophils (Bld) [#/Vol] 6.60 10*3/uL 1.45 - 7.50 k/uL [facility] Neutrophils/100 WBC (Bld) 70.0 % [facility] Nucleated RBC (Bld) [#/Vol] <0.01 k/uL [facility] Nucleated RBC/100 WBC (Bld) [Ratio] 0.0 /100 WBC [facility] Platelet mean volume (Bld) [Entitic vol] 10.2 fL 9.0 - 12.7 fL [facility] Platelets (Bld) [#/Vol] 257 10*3/uL 150 - 400 k/uL [facility] RBC (Bld) [#/Vol] 3.67 10*6/uL Low 4.20 - 6.0 0 m/uL [facility] WBC (Bld) [#/Vol] 9.44 10*3/uL 3.70 - 11.00 k/uL [facility] Comprehensive metabolic 2000 panelon 08-02-2022 Albumin [Mass/Vol] 4.2 g/dL 3.9 - 4.9 g/dL [facility] ALP [Catalytic activity/Vol] 140 U/L High 38 - 113 U/L [facility] ALT [Catalytic activity/Vol] 17 U/L 10 - 54 U/L [facility] Anion gap [Moles/Vol] 8 mmol/L Low 9 - 18 mmol/L [facility] AST [Catalytic activity/Vol] 20 U/L 14 - 40 U/L [facility] Bilirubin [Mass/Vol] 1.0 mg/dL 0.2 - 1 .3 mg/dL [facility] Calcium [Mass/Vol] 10.6 mg/dL High 8.5 - 10. 2 mg/dL [facility] Chloride [Moles/Vol] 105 mmol/L 97 - 10 5 mmol/L [facility] CO2 [Moles/Vol] 24 mmol/L 22 - 30 mmol/L [facility] Creatinine [Mass/Vol] 0.81 mg/dL 0.73 - 1.22 mg/dL [facility] Estimated Glomerular Filtration Rate 94 mL/min/1.73m >=60 mL/min/1.73 m [facility] Glucose [Mass/Vol] 151 mg/dL High 74 - 99 mg/dL [facility] Potassium [Moles/Vol] 4.7 mmol/L 3.7 - 5.1 mmol/L [facility] Protein [Mass/Vol] 7.3 g/dL 6.3 - 8.0 g/dL [facility] Sodium [Moles/Vol] 137 mmol/L 136 - 144 mmol/L [facility] Urea nitrogen [Mass/Vol] 18 mg/dL 9 - 24 mg/dL [facility] CT Abdomen and Pelvis W cont rast [place] 07-27-2022 IMPRESSION: 1. No interval change since 05/25/22. 2. Multiple mesenteric and peritoneal masses/lymphadenopathy, stable. Transcribe Date/Time: Jul 27 2022 3:17P Dictated by: ASHANTI REN MD This examination was interpreted and the report reviewed and electronically signed by: ASHANTI REN MD on Jul 27 2022 4:00PM EST Thank you for allowing us to participate in the care of your patient. Should there be any questions regarding this interpretation, please call [phone]. If you are unable to reach us at the number above, please feel free to contact [facility] at [phone]. DIVISION OF RADIOLOGY * * *Final Report* * * DATE OF EXAM: Jul 27 2022 11:05AM [facility] 0530 - CT ABD/PEL W IVCON / PROCEDURE REASON: Malignant neoplasm of head of pancreas (HCC) * * * * Physician Interpretation * * * * RESULT: EXAMINATION: CT ABDOMEN AND PELVIS WITH IV CONTRAST CLINICAL HISTORY: Pancreatic adenocarcinoma, status post pancreaticoduodenectomy, intra-abdominal abscess TECHNIQUE: CT of the abdomen and pelvis was performed using standard technique, scanning from just above the dome of the diaphragm to the symphysis pubis. MQ: CTAP_3 Contrast: IV: 150 ml of Omnipaque 300 Oral: 500 ml of Omni 240 10-25ml diluted with water CT Radiation dose: Integrated Dose-length product (DLP) for this visit = 1084 mGy*cm. CT Dose Reduction Employed: Automated exposure control (AEC) COMPARISON: 05/25/22 RESULT: Liver: No suspicious enhancing mass. Biliary: No bile duct dilation. Gallbladder is absent. Spleen: No mass. No splenomegaly. 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 Metallic pancreatic duct stent is stable.. Adrenals: No mass. Kidneys: Renal cysts are again noted measuring up to 7 cm. A masslike lesion anterior to the right kidney (3:61) is described in the retroperitoneal section. No evidence of enhancing renal mass or hydronephrosis. GI tract: No evidence of bowel obstruction. Lymph nodes/mesentery/peritoneu m/retroperitoneum: Multiple mesenteric and respiratory nodules are noted may represent a combination of metastases and lymphadenopathy, stable. For example: * 4.3 x 2.9 cm central mesenteric (3:51), previously 4.3 x 2.8 cm * 4.3 x 2.2 cm aortocaval (3:66), previously 3.8 x 3.2 cm * 3.6 x 3.0 cm left periaortic (3:60), previously 3.4 x 2.8 cm * 2.4 x 1.8 cm right perinephric (3:61), previously 2.3 x 1.7 cm * 2.0 x 2.0 cm preaortic (3:73), previously 2.3 x 2.2 cm No evidence of ascites. Vasculature: The celiac axis and SMA are patent. The portal vein and branches, splenic vein, SMV, and hepatic veins are patent. Arterial atherosclerotic disease without aneurysm. Pelvis: No mass, ascites or fluid collection. Fat-containing left inguinal hernia. Prostate is enlarged. Urinary bladder is decompressed. Bones/Soft Tissues: No new osseous abnormalities. Lower thorax: Please refer to the abdomen CT scan report for the abdomen findings. Cable Installer Repairer Helper (topogram) images: No additional findings. DIVISION OF RADIOLOGY Provider, [facility] - 07/27/2022 * * *Final Report* * * DATE OF EXAM: Jul 27 2022 11:05AM [facility] 0530 - CT ABD/PEL W IVCON / PROCEDURE REASON: Malignant neoplasm of head of pancreas (HCC) * * * * Physician Interpretation * * * * RESULT: EXAMINATION: CT ABDOMEN AND PELVIS WITH IV CONTRAST CLINICAL HISTORY: Pancreatic adenocarcinoma, status post pancreaticoduodenectomy, intra-abdominal abscess TECHNIQUE: CT of the abdomen and pelvis was performed using standard technique, scanning from just above the dome of the diaphragm to the symphysis pubis. MQ: CTAP_3 Contrast: IV: 150 ml of Omnipaque 300 Oral: 500 ml of Omni 240 10-25ml diluted with water CT Radiation dose: Integrated Dose-length product (DLP) for this visit = 1084 mGy*cm. CT Dose Reduction Employed: Automated exposure control (AEC) COMPARISON: 05/25/22 RESULT: Liver: No suspicious enhancing mass. Biliary: No bile duct dilation. Gallbladder is absent. Spleen: No mass. No splenomegaly. 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 Metallic pancreatic duct stent is stable.. Adrenals: No mass. Kidneys: Renal cysts are again noted measuring up to 7 cm. A masslike lesion anterior to the right kidney (3:61) is described in the retroperitoneal section. No evidence of enhancing renal mass or hydronephrosis. GI tract: No evidence of bowel obstruction. Lymph nodes/mesentery/peritoneu m/retroperitoneum: Multiple mesenteric and respiratory nodules are noted may represent a combination of metastases and lymphadenopathy, stable. For example: * 4.3 x 2.9 cm central mesenteric (3:51), previously 4.3 x 2.8 cm * 4.3 x 2.2 cm aortocaval (3:66), previously 3.8 x 3.2 cm * 3.6 x 3.0 cm left periaortic (3:60), previously 3.4 x 2.8 cm * 2.4 x 1.8 cm right perinephric (3:61), previously 2.3 x 1.7 cm * 2.0 x 2.0 cm preaortic (3:73), previously 2.3 x 2.2 cm No evidence of ascites. Vasculature: The celiac axis and SMA are patent. The portal vein and branches, splenic vein, SMV, and hepatic veins are patent. Arterial atherosclerotic disease without aneurysm. Pelvis: No mass, ascites or fluid collection. Fat-containing left inguinal hernia. Prostate is enlarged. Urinary bladder is decompressed. Bones/Soft Tissues: No new osseous abnormalities. Lower thorax: Please refer to the abdomen CT scan report for the abdomen findings. Cable Installer Repairer Helper (topogram) images: No additional findings. IMPRESSION IMPRESSION: 1. No interval change since 05/25/22. 2. Multiple mesenteric and peritoneal masses/lymphadenopathy, stable. Transcribe Date/Time: Jul 27 2022 3:17P Dictated by: ASHANTI REN MD This examination was interpreted and the report reviewed and electronically signed by: ASHANTI REN MD on Jul 27 2022 4:00PM EST Thank you for allowing us to participate in the care of your patient. Should there be any questions regarding this interpretation, please call [phone]. If you are unable to reach us at the number above, please feel free to contact [facility] at [phone]. [facility] CT Chest W contrast [place] IMPRESSION: 1. New reticulonodular opacities in the right lung, with an upper lung field predominance, most likely infectious/inflammatory in etiology. Consider follow-up to complete resolution. 2. Other subcentimeter nodular opacities measuring up to 7-8 mm, stable since 05/25/22. Transcribe Date/Time: Jul 27 2022 2:48P Dictated by: ASHANTI REN MD This examination was interpreted and the report reviewed and electronically signed by: ASHANTI REN MD on Jul 27 2022 4:00PM EST Thank you for allowing us to participate in the care of your patient. Should there be any questions regarding this interpretation, please call [phone]. If you are unable to reach us at the number above, please feel free to contact [facility] at [phone]. DIVISION OF RADIOLOGY * * *Final Report* * * DATE OF EXAM: Jul 27 2022 11:05AM [facility] 0539 - CT CHEST W IVCON / PROCEDURE REASON: Malignant neoplasm of head of pancreas (HCC) * * * * Physician Interpretation * * * * RESULT: EXAMINATION: CHEST CT WITH CONTRAST CLINICAL HISTORY: Pancreatic head cancer Technique: Spiral CT acquisition of the chest from the thoracic inlet to the upper abdomen following IV contrast. MQ: CTCW_6 Contrast: 150 mL Omnipaque [address] Radiation dose: Integrated Dose-length product (DLP) for this visit = 1084 mGy*cm CT Dose Reduction Employed: Automated exposure control (AEC) Comparison: 05/25/22 RESULT: Limitations: None. Lines, tubes, and devices: Right-sided Port-A-Cath. Lung parenchyma and airways: New reticulonodular opacities are noted in the right lung, with an upper lung field predominance, most likely infectious/inflammatory in etiology. Subcentimeter nodular opacities measuring up to 7-8 mm, stable. For example: Right lower lobe (4:98) Left upper lobe (4:137) Left lower lobe (4:120). The central airways are patent. Pleural space: No pleural effusion. No pleural thickening. Lower neck, lymph nodes, and mediastinum: The imaged thyroid gland is normal. Calcified mediastinal lymph nodes are identified. No evidence of enlarged noncalcified mediastinal lymph nodes. . Heart, pericardium, and thoracic vessels: The thoracic aorta and main pulmonary artery are normal in caliber. The cardiac chambers are normal in size. No coronary artery atherosclerotic calcifications are noted, although the study is not optimized for coronary assessment. No pericardial effusion or thickening. Bones and soft tissues: Bone island is noted in T8 vertebral body, stable. No new osseous abnormalities. Upper abdomen: Please refer to the abdomen CT scan report for the abdomen findings. Cable Installer Repairer Helper (topogram) images: No additional findings. [facility]OLOGY [facility] * * *Final Report* * * DATE OF EXAM: Jul 27 2022 11:05AM [facility] 0539 - CT CHEST W IVCON / PROCEDURE REASON: Malignant neoplasm of head of pancreas (HCC) * * * * Physician Interpretation * * * * RESULT: EXAMINATION: CHEST CT WITH CONTRAST CLINICAL HISTORY: Pancreatic head cancer Technique: Spiral CT acquisition of the chest from the thoracic inlet to the upper abdomen following IV contrast. MQ: CTCW_6 Contrast: 150 mL Omnipaque [address] Radiation dose: Integrated Dose-length product (DLP) for this visit = 1084 mGy*cm CT Dose Reduction Employed: Automated exposure control (AEC) Comparison: 05/25/22 RESULT: Limitations: None. Lines, tubes, and devices: Right-sided Port-A-Cath. Lung parenchyma and airways: New reticulonodular opacities are noted in the right lung, with an upper lung field predominance, most likely infectious/inflammatory in etiology. Subcentimeter nodular opacities measuring up to 7-8 mm, stable. For example: Right lower lobe (4:98) Left upper lobe (4:137) Left lower lobe (4:120). The central airways are patent. Pleural space: No pleural effusion. No pleural thickening. Lower neck, lymph nodes, and mediastinum: The imaged thyroid gland is normal. Calcified mediastinal lymph nodes are identified. No evidence of enlarged noncalcified mediastinal lymph nodes. . Heart, pericardium, and thoracic vessels: The thoracic aorta and main pulmonary artery are normal in caliber. The cardiac chambers are normal in size. No coronary artery atherosclerotic calcifications are noted, although the study is not optimized for coronary assessment. No pericardial effusion or thickening. Bones and soft tissues: Bone island is noted in T8 vertebral body, stable. No new osseous abnormalities. Upper abdomen: Please refer to the abdomen CT scan report for the abdomen findings. Cable Installer Repairer Helper (topogram) images: No additional findings. IMPRESSION IMPRESSION: 1. New reticulonodular opacities in the right lung, with an upper lung field predominance, most likely infectious/inflammatory in etiology. Consider follow-up to complete resolution. 2. Other subcentimeter nodular opacities measuring up to 7-8 mm, stable since 05/25/22. Transcribe Date/Time: Jul 27 2022 2:48P Dictated by: ASHANTI REN MD This examination was interpreted and the report reviewed and electronically signed by: ASHANTI REN MD on Jul 27 2022 4:00PM EST Thank you for allowing us to participate in the care of your patient. Should there be any questions regarding this interpretation, please call [phone]. If you are unable to reach us at the number above, please feel free to contact [facility] at [phone]. [facility] CT Chest W contrast IVOrdere d By: [facility] Provider on 07-27-2022 [facility] No Panel Informationon 07-27 Radiology Study observation (narrative) [facility] CBC W Auto Differential pane l (Bld)on 06-29-2022 Basophils (Bld) [#/Vol] 0.03 10*3/uL <0.11 k/uL [facility] Basophils/100 WBC (Bld) 0.3 % [facility] Differential cell count method Nom (Bld) Auto [facility] Eosinophils (Bld) [#/Vol] 0.09 10*3/uL <0.46 k/uL [facility] Eosinophils/100 WBC (Bld) 0.9 % [facility] Erythrocyte distribution width (RBC) [Ratio] 15.3 % High 11.5 - 15.0 % [facility] Hematocrit (Bld) [Volume fraction] 36.8 % Low 39.0 - 51.0 % [facility] Hemoglobin (Bld) [Mass/Vol] 11.7 g/dL Low 13.0 - 17.0 g/dL [facility] Immature granulocytes (Bld) [#/Vol] 0.03 10*3/uL <0.10 k/uL [facility] Immature granulocytes/100 WBC (Bld) 0.3 % [facility] Lymphocytes (Bld) [#/Vol] 2.15 10*3/uL 1.00 - 4.00 k/uL [facility] Lymphocytes/100 WBC (Bld) 20.9 % [facility] MCH (RBC) [Entitic mass] 30.5 pg 26.0 - 34.0 pg [facility] MCHC (RBC) [Mass/Vol] 31.8 g/dL 30.5 - 36.0 g/dL [facility] MCV (RBC) [Entitic vol] 96.1 fL 80.0 - 100.0 fL [facility] Monocytes (Bld) [#/Vol] 1.05 10*3/uL High <0.87 k/uL [facility] Monocytes/100 WBC (Bld) 10.2 % [facility] Neutrophils (Bld) [#/Vol] 6.95 10*3/uL 1.45 - 7.50 k/uL [facility] Neutrophils/100 WBC (Bld) 67.4 % [facility] Nucleated RBC (Bld) [#/Vol] <0.01 k/uL [facility] Nucleated RBC/100 WBC (Bld) [Ratio] 0.0 /100 WBC [facility] Platelet mean volume (Bld) [Entitic vol] 9.8 fL 9.0 - 12.7 fL [facility] Platelets (Bld) [#/Vol] 288 10*3/uL 150 - 400 k/uL [facility] RBC (Bld) [#/Vol] 3.83 10*6/uL Low 4.20 - 6.0 0 m/uL [facility] WBC (Bld) [#/Vol] 10.30 10*3/uL 3.70 - 11.00 k/uL [facility] Comprehensive metabolic 2000 panelon 06-29-2022 Albumin [Mass/Vol] 4.2 g/dL 3.9 - 4.9 g/dL [facility] ALP [Catalytic activity/Vol] 146 U/L High 38 - 113 U/L [facility] ALT [Catalytic activity/Vol] 21 U/L 10 - 54 U/L [facility] Anion gap [Moles/Vol] 8 mmol/L Low 9 - 18 mmol/L [facility] AST [Catalytic activity/Vol] 20 U/L 14 - 40 U/L [facility] Bilirubin [Mass/Vol] 0.9 mg/dL 0.2 - 1 .3 mg/dL [facility] Calcium [Mass/Vol] 10.6 mg/dL High 8.5 - 10. 2 mg/dL [facility] Chloride [Moles/Vol] 100 mmol/L 97 - 10 5 mmol/L [facility] CO2 [Moles/Vol] 25 mmol/L 22 - 30 mmol/L [facility] Creatinine [Mass/Vol] 0.83 mg/dL 0.73 - 1.22 mg/dL [facility] Estimated Glomerular Filtration Rate 94 mL/min/1.73m >=60 mL/min/1.73 m [facility] Glucose [Mass/Vol] 189 mg/dL High 74 - 99 mg/dL [facility] Potassium [Moles/Vol] 4.7 mmol/L 3.7 - 5.1 mmol/L [facility] Protein [Mass/Vol] 7.6 g/dL 6.3 - 8.0 g/dL [facility] Sodium [Moles/Vol] 133 mmol/L Low 136 - 144 mmol/L [facility] Urea nitrogen [Mass/Vol] 21 mg/dL 9 - 24 mg/dL [facility] CBC W Auto Differential pane l (Bld)on 06-01-2022 Basophils (Bld) [#/Vol] 0.05 10*3/uL <0.11 k/uL [facility] Basophils/100 WBC (Bld) 0.6 % [facility] Differential cell count method Nom (Bld) Auto [facility] Eosinophils (Bld) [#/Vol] 0.11 10*3/uL <0.46 k/uL [facility] Eosinophils/100 WBC (Bld) 1.3 % [facility] Erythrocyte distribution width (RBC) [Ratio] 15.9 % High 11.5 - 15.0 % [facility] Hematocrit (Bld) [Volume fraction] 34.6 % Low 39.0 - 51.0 % [facility] Hemoglobin (Bld) [Mass/Vol] 11.0 g/dL Low 13.0 - 17.0 g/dL [facility] Immature granulocytes (Bld) [#/Vol] 0.03 10*3/uL <0.10 k/uL [facility] Immature granulocytes/100 WBC (Bld) 0.4 % [facility] Lymphocytes (Bld) [#/Vol] 1.92 10*3/uL 1.00 - 4.00 k/uL [facility] Lymphocytes/100 WBC (Bld) 22.6 % [facility] MCH (RBC) [Entitic mass] 31.7 pg 26.0 - 34.0 pg [facility] MCHC (RBC) [Mass/Vol] 31.8 g/dL 30.5 - 36.0 g/dL [facility] MCV (RBC) [Entitic vol] 99.7 fL 80.0 - 100.0 fL [facility] Monocytes (Bld) [#/Vol] 0.95 10*3/uL High <0.87 k/uL [facility] Monocytes/100 WBC (Bld) 11.2 % [facility] Neutrophils (Bld) [#/Vol] 5.43 10*3/uL 1.45 - 7.50 k/uL [facility] Neutrophils/100 WBC (Bld) 63.9 % [facility] Nucleated RBC (Bld) [#/Vol] <0.01 k/uL [facility] Nucleated RBC/100 WBC (Bld) [Ratio] 0.0 /100 WBC [facility] Platelet mean volume (Bld) [Entitic vol] 9.9 fL 9.0 - 12.7 fL [facility] Platelets (Bld) [#/Vol] 354 10*3/uL 150 - 400 k/uL [facility] RBC (Bld) [#/Vol] 3.47 10*6/uL Low 4.20 - 6.0 0 m/uL [facility] WBC (Bld) [#/Vol] 8.49 10*3/uL 3.70 - 11.00 k/uL [facility] Comprehensive metabolic 2000 panelon 06-01-2022 Albumin [Mass/Vol] 4.3 g/dL 3.9 - 4.9 g/dL [facility] ALP [Catalytic activity/Vol] 138 U/L High 38 - 113 U/L [facility] ALT [Catalytic activity/Vol] 20 U/L 10 - 54 U/L [facility] Anion gap [Moles/Vol] 7 mmol/L Low 9 - 18 mmol/L [facility] AST [Catalytic activity/Vol] 19 U/L 14 - 40 U/L [facility] Bilirubin [Mass/Vol] 0.5 mg/dL 0.2 - 1 .3 mg/dL [facility] Calcium [Mass/Vol] 10.1 mg/dL 8.5 - 10. 2 mg/dL [facility] Chloride [Moles/Vol] 103 mmol/L 97 - 10 5 mmol/L [facility] CO2 [Moles/Vol] 25 mmol/L 22 - 30 mmol/L [facility] Creatinine [Mass/Vol] 0.76 mg/dL 0.73 - 1.22 mg/dL [facility] Estimated Glomerular Filtration Rate 96 mL/min/1.73m >=60 mL/min/1.73 m [facility] Glucose [Mass/Vol] 179 mg/dL High 74 - 99 mg/dL [facility] Potassium [Moles/Vol] 4.9 mmol/L 3.7 - 5.1 mmol/L [facility] Protein [Mass/Vol] 6.9 g/dL 6.3 - 8.0 g/dL [facility] Sodium [Moles/Vol] 135 mmol/L Low 136 - 144 mmol/L [facility] Urea nitrogen [Mass/Vol] 20 mg/dL 9 - 24 mg/dL [facility] CT Abdomen and Pelvis W cont rast [place] 05-25-2022 IMPRESSION: 1. Mesenteric and retroperitoneal lymphadenopathy as noted [...] not well seen on the current study. Transcribe Date/Time: May 25 2022 4:36P Dictated by: JUAN CARLOS LINCOLN MD This examination was interpreted and the report reviewed and electronically signed by: JUAN CARLOS LINCOLN MD on May 25 2022 4:49PM EST Thank you for allowing us to participate in the care of your patient. Should there be any questions regarding this interpretation, please call [phone]. If you are unable to reach us at the number above, please feel free to contact [facility] at [phone]. DIVISION OF RADIOLOGY * * *Final Report* * * DATE OF EXAM: May 25 2022 11:28AM NR 0530 - CT ABD/PEL W IVCON / PROCEDURE REASON: Malignant neoplasm of head of pancreas (HCC) * * * * Physician Interpretation * * * * RESULT: EXAMINATION: CT ABDOMEN AND PELVIS WITH IV CONTRAST CLINICAL HISTORY: History of pancreatic cancer. TECHNIQUE: CT of the abdomen and pelvis was performed using standard technique, scanning from just above the dome of the diaphragm to the symphysis pubis. MQ: CTAP_3 Contrast: IV: 125 ml of Omnipaque 300 Oral: 450 ml of 50ML Omnipaque [address] Radiation dose: Integrated Dose-length product (DLP) for this visit = 1041 mGy*cm. CT Dose Reduction Employed: Automated exposure control (AEC) COMPARISON: CT performed 02/15/2022 RESULT: Liver: No new hepatic mass is visualized. Ill-defined soft tissue in the region of the ellen hepatis and right portal vein described on prior CT is not well seen on the current study. Biliary: The gallbladder is surgically absent. No biliary ductal dilation is seen. Spleen: Punctate calcifications are seen within the spleen, in keeping with prior granulomatous disease. No discrete mass is visualized. The spleen is within normal limits for size. Pancreas: Postsurgical changes are noted in keeping with prior Whipple procedure. A metallic pancreatic duct stent is in place, unchanged from prior exam. No pancreatic ductal dilation is seen. No peripancreatic inflammatory change or fluid collection is noted. Adrenals: No mass. Kidneys: The kidneys symmetrically enhance. No renal calculus or hydronephrosis is seen. Bilateral renal cysts are noted, measuring up to 7.4 cm on the left. GI tract: Postsurgical changes are noted in keeping with prior Whipple procedure. There is no evidence of small bowel obstruction or wall thickening. Lymph nodes: Multiple enlarged mesenteric and retroperitoneal nodes are again visualized. These include the following: Central mesentery (3:48) 4.3 x 2.9 cm, stable Left para-aortic (3:57) 3.4 x 2.8 cm, stable Aortocaval (3:63) 3.8 x 3.2 cm, previously 3.5 x 3.1 cm Preaortic (3:70) 2.3 x 2.3 cm, stable No new bulky abdominal or pelvic adenopathy is seen. Mesentery/Peritoneum: No ascites or mass. Retroperitoneum: No mass. Vasculature: - Abdominal aorta and iliac arteries: Atherosclerotic calcifications without aneurysm. - Celiac and SMA: Stable ill-defined soft tissue/fat stranding is seen adjacent to the proximal celiac artery (3:39). 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 Portal venous system is otherwise patent. - Hepatic veins: Patent. Pelvis: The urinary bladder is unremarkable. No pelvic mass or fluid collection is seen. Bones/Soft Tissues: No destructive osseous lesions are seen. Superficial soft tissues are unremarkable. Lower thorax: No lobar consolidation or pleural effusion is seen. Cable Installer Repairer Helper (topogram) images: No additional findings. DIVISION OF RADIOLOGY Provider, [facility] - 05/25/2022 * * *Final Report* * * DATE OF EXAM: May 25 2022 11:28AM [facility] 0530 - CT ABD/PEL W IVCON / PROCEDURE REASON: Malignant neoplasm of head of pancreas (HCC) * * * * Physician Interpretation * * * * RESULT: EXAMINATION: CT ABDOMEN AND PELVIS WITH IV CONTRAST CLINICAL HISTORY: History of pancreatic cancer. TECHNIQUE: CT of the abdomen and pelvis was performed using standard technique, scanning from just above the dome of the diaphragm to the symphysis pubis. MQ: CTAP_3 Contrast: IV: 125 ml of Omnipaque 300 Oral: 450 ml of 50ML Omnipaque [address] Radiation dose: Integrated Dose-length product (DLP) for this visit = 1041 mGy*cm. CT Dose Reduction Employed: Automated exposure control (AEC) COMPARISON: CT performed 02/15/2022 RESULT: Liver: No new hepatic mass is visualized. Ill-defined soft tissue in the region of the ellen hepatis and right portal vein described on prior CT is not well seen on the current study. Biliary: The gallbladder is surgically absent. No biliary ductal dilation is seen. Spleen: Punctate calcifications are seen within the spleen, in keeping with prior granulomatous disease. No discrete mass is visualized. The spleen is within normal limits for size. Pancreas: Postsurgical changes are noted in keeping with prior Whipple procedure. A metallic pancreatic duct stent is in place, unchanged from prior exam. No pancreatic ductal dilation is seen. No peripancreatic inflammatory change or fluid collection is noted. Adrenals: No mass. Kidneys: The kidneys symmetrically enhance. No renal calculus or hydronephrosis is seen. Bilateral renal cysts are noted, measuring up to 7.4 cm on the left. GI tract: Postsurgical changes are noted in keeping with prior Whipple procedure. There is no evidence of small bowel obstruction or wall thickening. Lymph nodes: Multiple enlarged mesenteric and retroperitoneal nodes are again visualized. These include the following: Central mesentery (3:48) 4.3 x 2.9 cm, stable Left para-aortic (3:57) 3.4 x 2.8 cm, stable Aortocaval (3:63) 3.8 x 3.2 cm, previously 3.5 x 3.1 cm Preaortic (3:70) 2.3 x 2.3 cm, stable No new bulky abdominal or pelvic adenopathy is seen. Mesentery/Peritoneum: No ascites or mass. Retroperitoneum: No mass. Vasculature: - Abdominal aorta and iliac arteries: Atherosclerotic calcifications without aneurysm. - Celiac and SMA: Stable ill-defined soft tissue/fat stranding is seen adjacent to the proximal celiac artery (3:39). 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 Portal venous system is otherwise patent. - Hepatic veins: Patent. Pelvis: The urinary bladder is unremarkable. No pelvic mass or fluid collection is seen. Bones/Soft Tissues: No destructive osseous lesions are seen. Superficial soft tissues are unremarkable. Lower thorax: No lobar consolidation or pleural effusion is seen. Cable Installer Repairer Helper (topogram) images: No additional findings. IMPRESSION IMPRESSION: 1. Mesenteric and retroperitoneal lymphadenopathy as noted [...] not well seen on the current study. Transcribe Date/Time: May 25 2022 4:36P Dictated by: JUAN CARLOS LINCOLN MD This examination was interpreted and the report reviewed and electronically signed by: JUAN CARLOS LINCOLN MD on May 25 2022 4:49PM EST Thank you for allowing us to participate in the care of your patient. Should there be any questions regarding this interpretation, please call [phone]. If you are unable to reach us at the number above, please feel free to contact [facility] at [phone]. [facility] CT Chest W contrast [place] IMPRESSION: 1. Stable CT of the chest. Unchanged appearance of left lower lobe 4 mm nodule. No new or enlarging nodules are visualized. 2. Stable appearance of prominent lymph node in the anterior mediastinum. No new bulky intrathoracic adenopathy is seen. 3. Stable findings of prior granulomatous disease. Transcribe Date/Time: May 25 2022 4:23P Dictated by: JUAN CARLOS LINCOLN MD This examination was interpreted and the report reviewed and electronically signed by: JUAN CARLOS LINCOLN MD on May 25 2022 4:36PM EST Thank you for allowing us to participate in the care of your patient. Should there be any questions regarding this interpretation, please call [phone]. If you are unable to reach us at the number above, please feel free to contact [facility] at [phone]. DIVISION OF RADIOLOGY * * *Final Report* * * DATE OF EXAM: May 25 2022 11:28AM [facility] 0539 - CT CHEST W IVCON / PROCEDURE REASON: Malignant neoplasm of head of pancreas (HCC) * * * * Physician Interpretation * * * * RESULT: EXAMINATION: CHEST CT WITH CONTRAST CLINICAL HISTORY: History of pancreatic cancer. Technique: Spiral CT acquisition of the chest from the thoracic inlet to the upper abdomen following IV contrast. MQ: CTCW_6 Contrast: 125 mL Omnipaque [address] Radiation dose: Integrated Dose-length product (DLP) for this visit = 1041 mGy*cm CT Dose Reduction Employed: Automated exposure control (AEC) Comparison: CT performed 03/07/2022 RESULT: Limitations: None. Lines, tubes, and devices: There is a MediPort in the right chest wall. Lung parenchyma and airways: No dense lobar consolidation is visualized. Stable calcified granulomas are noted in the right lower lobe. There is a stable left lower lobe 4 mm nodule (4:138). No new or enlarging nodules are visualized. The central airways are widely patent. Pleural space: No pleural effusion. No pleural thickening. Lower neck, lymph nodes, and mediastinum: Calcified right hilar nodes are seen, in keeping with peritoneal metastasis disease. There is a prominent node in the anterior mediastinum measuring 8 mm in short axis, stable. No new bulky intrathoracic adenopathy is visualized. Heart, pericardium, and thoracic vessels: The thoracic aorta and main pulmonary artery are normal in caliber. The cardiac chambers are normal in size. No coronary artery atherosclerotic calcifications are noted, although the study is not optimized for coronary assessment. No pericardial effusion or thickening. Bones and soft tissues: Degenerative changes seen in the thoracic spine. No destructive osseous lesions are seen. Superficial soft tissues are unremarkable. Upper abdomen: A dedicated CT of the abdomen and pelvis was performed concurrently and is reported separately. Cable Installer Repairer Helper (topogram) images: No additional findings. DIVISION OF RADIOLOGY Provider, [facility] - 05/25/2022 * * *Final Report* * * DATE OF EXAM: May 25 2022 11:28AM [facility] 0539 - CT CHEST W IVCON / PROCEDURE REASON: Malignant neoplasm of head of pancreas (HCC) * * * * Physician Interpretation * * * * RESULT: EXAMINATION: CHEST CT WITH CONTRAST CLINICAL HISTORY: History of pancreatic cancer. Technique: Spiral CT acquisition of the chest from the thoracic inlet to the upper abdomen following IV contrast. MQ: CTCW_6 Contrast: 125 mL Omnipaque [address] Radiation dose: Integrated Dose-length product (DLP) for this visit = 1041 mGy*cm CT Dose Reduction Employed: Automated exposure control (AEC) Comparison: CT performed 03/07/2022 RESULT: Limitations: None. Lines, tubes, and devices: There is a MediPort in the right chest wall. Lung parenchyma and airways: No dense lobar consolidation is visualized. Stable calcified granulomas are noted in the right lower lobe. There is a stable left lower lobe 4 mm nodule (4:138). No new or enlarging nodules are visualized. The central airways are widely patent. Pleural space: No pleural effusion. No pleural thickening. Lower neck, lymph nodes, and mediastinum: Calcified right hilar nodes are seen, in keeping with peritoneal metastasis disease. There is a prominent node in the anterior mediastinum measuring 8 mm in short axis, stable. No new bulky intrathoracic adenopathy is visualized. Heart, pericardium, and thoracic vessels: The thoracic aorta and main pulmonary artery are normal in caliber. The cardiac chambers are normal in size. No coronary artery atherosclerotic calcifications are noted, although the study is not optimized for coronary assessment. No pericardial effusion or thickening. Bones and soft tissues: Degenerative changes seen in the thoracic spine. No destructive osseous lesions are seen. Superficial soft tissues are unremarkable. Upper abdomen: A dedicated CT of the abdomen and pelvis was performed concurrently and is reported separately. Cable Installer Repairer Helper (topogram) images: No additional findings. IMPRESSION IMPRESSION: 1. Stable CT of the chest. Unchanged appearance of left lower lobe 4 mm nodule. No new or enlarging nodules are visualized. 2. Stable appearance of prominent lymph node in the anterior mediastinum. No new bulky intrathoracic adenopathy is seen. 3. Stable findings of prior granulomatous disease. Transcribe Date/Time: May 25 2022 4:23P Dictated by: JUAN CARLOS LINCOLN MD This examination was interpreted and the report reviewed and electronically signed by: JUAN CARLOS LINCOLN MD on May 25 2022 4:36PM EST Thank you for allowing us to participate in the care of your patient. Should there be any questions regarding this interpretation, please call [phone]. If you are unable to reach us at the number above, please feel free to contact [facility] at [phone]. [facility] CT Chest W contrast IVOrdere d By: [facility] Provider on 05-25-2022 [facility] No Panel Informationon 05-25 Radiology Study observation (narrative) [facility] CBC W Auto Differential pane l (Bld)on 05-11-2022 Basophils (Bld) [#/Vol] <0.11 k/uL [facility] Basophils/100 WBC (Bld) 0.3 % [facility] Differential cell count method Nom (Bld) Auto [facility] Eosinophils (Bld) [#/Vol] 0.10 10*3/uL <0.46 k/uL [facility] Eosinophils/100 WBC (Bld) 1.6 % [facility] Erythrocyte distribution width (RBC) [Ratio] 16.8 % High 11.5 - 15.0 % [facility] Hematocrit (Bld) [Volume fraction] 30.7 % Low 39.0 - 51.0 % [facility] Hemoglobin (Bld) [Mass/Vol] 9.5 g/dL Low 13.0 - 17.0 g/dL [facility] Immature granulocytes (Bld) [#/Vol] 0.03 10*3/uL <0.10 k/uL [facility] Immature granulocytes/100 WBC (Bld) 0.5 % [facility] Lymphocytes (Bld) [#/Vol] 1.49 10*3/uL 1.00 - 4.00 k/uL [facility] Lymphocytes/100 WBC (Bld) 24.0 % [facility] MCH (RBC) [Entitic mass] 31.6 pg 26.0 - 34.0 pg [facility] MCHC (RBC) [Mass/Vol] 30.9 g/dL 30.5 - 36.0 g/dL [facility] MCV (RBC) [Entitic vol] 102.0 fL High 80.0 - 100.0 fL [facility] Monocytes (Bld) [#/Vol] 0.79 10*3/uL <0.87 k/uL [facility] Monocytes/100 WBC (Bld) 12.7 % [facility] Neutrophils (Bld) [#/Vol] 3.79 10*3/uL 1.45 - 7.50 k/uL [facility] Neutrophils/100 WBC (Bld) 60.9 % [facility] Nucleated RBC (Bld) [#/Vol] <0.01 k/uL [facility] Nucleated RBC/100 WBC (Bld) [Ratio] 0.0 /100 WBC [facility] Platelet mean volume (Bld) [Entitic vol] 9.9 fL 9.0 - 12.7 fL [facility] Platelets (Bld) [#/Vol] 347 10*3/uL 150 - 400 k/uL [facility] RBC (Bld) [#/Vol] 3.01 10*6/uL Low 4.20 - 6.0 0 m/uL [facility] WBC (Bld) [#/Vol] 6.22 10*3/uL 3.70 - 11.00 k/uL [facility] Comprehensive metabolic 2000 panelon 05-11-2022 Albumin [Mass/Vol] 3.9 g/dL 3.9 - 4.9 g/dL [facility] ALP [Catalytic activity/Vol] 134 U/L High 38 - 113 U/L [facility] ALT [Catalytic activity/Vol] 20 U/L 10 - 54 U/L [facility] Anion gap [Moles/Vol] 7 mmol/L Low 9 - 18 mmol/L [facility] AST [Catalytic activity/Vol] 19 U/L 14 - 40 U/L [facility] Bilirubin [Mass/Vol] 0.6 mg/dL 0.2 - 1 .3 mg/dL [facility] Calcium [Mass/Vol] 9.8 mg/dL 8.5 - 10. 2 mg/dL [facility] Chloride [Moles/Vol] 105 mmol/L 97 - 10 5 mmol/L [facility] CO2 [Moles/Vol] 24 mmol/L 22 - 30 mmol/L [facility] Creatinine [Mass/Vol] 0.71 mg/dL Low 0.73 - 1.22 mg/dL [facility] Estimated Glomerular Filtration Rate 98 mL/min/1.73m >=60 mL/min/1.73 m [facility] Glucose [Mass/Vol] 240 mg/dL High 74 - 99 mg/dL [facility] Potassium [Moles/Vol] 4.6 mmol/L 3.7 - 5.1 mmol/L [facility] Protein [Mass/Vol] 6.5 g/dL 6.3 - 8.0 g/dL [facility] Sodium [Moles/Vol] 136 mmol/L 136 - 144 mmol/L [facility] Urea nitrogen [Mass/Vol] 17 mg/dL 9 - 24 mg/dL [facility] CBC W Auto Differential pane l (Bld)on 04-26-2022 Basophils (Bld) [#/Vol] 0.05 10*3/uL <0.11 k/uL [facility] Basophils/100 WBC (Bld) 0.8 % [facility] Differential cell count method Nom (Bld) Auto [facility] Eosinophils (Bld) [#/Vol] 0.04 10*3/uL <0.46 k/uL [facility] Eosinophils/100 WBC (Bld) 0.6 % [facility] Erythrocyte distribution width (RBC) [Ratio] 15.9 % High 11.5 - 15.0 % [facility] Hematocrit (Bld) [Volume fraction] 26.9 % Low 39.0 - 51.0 % [facility] Hemoglobin (Bld) [Mass/Vol] 8.5 g/dL Low 13.0 - 17.0 g/dL [facility] Immature granulocytes (Bld) [#/Vol] 0.07 10*3/uL <0.10 k/uL [facility] Immature granulocytes/100 WBC (Bld) 1.1 % [facility] Lymphocytes (Bld) [#/Vol] 1.73 10*3/uL 1.00 - 4.00 k/uL [facility] Lymphocytes/100 WBC (Bld) 28.1 % [facility] MCH (RBC) [Entitic mass] 32.2 pg 26.0 - 34.0 pg [facility] MCHC (RBC) [Mass/Vol] 31.6 g/dL 30.5 - 36.0 g/dL [facility] MCV (RBC) [Entitic vol] 101.9 fL High 80.0 - 100.0 fL [facility] Monocytes (Bld) [#/Vol] 0.28 10*3/uL <0.87 k/uL [facility] Monocytes/100 WBC (Bld) 4.5 % [facility] Neutrophils (Bld) [#/Vol] 3.99 10*3/uL 1.45 - 7.50 k/uL [facility] Neutrophils/100 WBC (Bld) 64.9 % [facility] Nucleated RBC (Bld) [#/Vol] <0.01 k/uL [facility] Nucleated RBC/100 WBC (Bld) [Ratio] 0.0 /100 WBC [facility] Platelet mean volume (Bld) [Entitic vol] 9.4 fL 9.0 - 12.7 fL [facility] Platelets (Bld) [#/Vol] 413 10*3/uL High 150 - 400 k/uL [facility] RBC (Bld) [#/Vol] 2.64 10*6/uL Low 4.20 - 6.0 0 m/uL [facility] WBC (Bld) [#/Vol] 6.16 10*3/uL 3.70 - 11.00 k/uL [facility] Comprehensive metabolic 2000 panelon 04-26-2022 Albumin [Mass/Vol] 4.0 g/dL 3.9 - 4.9 g/dL [facility] ALP [Catalytic activity/Vol] 129 U/L High 38 - 113 U/L [facility] ALT [Catalytic activity/Vol] 31 U/L 10 - 54 U/L [facility] Anion gap [Moles/Vol] 8 mmol/L Low 9 - 18 mmol/L [facility] AST [Catalytic activity/Vol] 29 U/L 14 - 40 U/L [facility] Bilirubin [Mass/Vol] 0.7 mg/dL 0.2 - 1 .3 mg/dL [facility] Calcium [Mass/Vol] 10.4 mg/dL High 8.5 - 10. 2 mg/dL [facility] Chloride [Moles/Vol] 103 mmol/L 97 - 10 5 mmol/L [facility] CO2 [Moles/Vol] 25 mmol/L 22 - 30 mmol/L [facility] Creatinine [Mass/Vol] 0.80 mg/dL 0.73 - 1.22 mg/dL [facility] Estimated Glomerular Filtration Rate 95 mL/min/1.73m >=60 mL/min/1.73 m [facility] Glucose [Mass/Vol] 127 mg/dL High 74 - 99 mg/dL [facility] Potassium [Moles/Vol] 4.5 mmol/L 3.7 - 5.1 mmol/L [facility] Protein [Mass/Vol] 6.8 g/dL 6.3 - 8.0 g/dL [facility] Sodium [Moles/Vol] 136 mmol/L 136 - 144 mmol/L [facility] Urea nitrogen [Mass/Vol] 13 mg/dL 9 - 24 mg/dL [facility] CBC W Auto Differential pane l (Bld)on 04-20-2022 Basophils (Bld) [#/Vol] 0.03 10*3/uL <0.11 k/uL [facility] Basophils/100 WBC (Bld) 0.4 % [facility] Differential cell count method Nom (Bld) Auto [facility] Eosinophils (Bld) [#/Vol] 0.10 10*3/uL <0.46 k/uL [facility] Eosinophils/100 WBC (Bld) 1.2 % [facility] Erythrocyte distribution width (RBC) [Ratio] 16.8 % High 11.5 - 15.0 % [facility] Hematocrit (Bld) [Volume fraction] 29.4 % Low 39.0 - 51.0 % [facility] Hemoglobin (Bld) [Mass/Vol] 9.2 g/dL Low 13.0 - 17.0 g/dL [facility] Immature granulocytes (Bld) [#/Vol] 0.05 10*3/uL <0.10 k/uL [facility] Immature granulocytes/100 WBC (Bld) 0.6 % [facility] Lymphocytes (Bld) [#/Vol] 1.46 10*3/uL 1.00 - 4.00 k/uL [facility] Lymphocytes/100 WBC (Bld) 18.0 % [facility] MCH (RBC) [Entitic mass] 32.5 pg 26.0 - 34.0 pg [facility] MCHC (RBC) [Mass/Vol] 31.3 g/dL 30.5 - 36.0 g/dL [facility] MCV (RBC) [Entitic vol] 103.9 fL High 80.0 - 100.0 fL [facility] Monocytes (Bld) [#/Vol] 0.89 10*3/uL High <0.87 k/uL [facility] Monocytes/100 WBC (Bld) 11.0 % [facility] Neutrophils (Bld) [#/Vol] 5.56 10*3/uL 1.45 - 7.50 k/uL [facility] Neutrophils/100 WBC (Bld) 68.8 % [facility] Nucleated RBC (Bld) [#/Vol] <0.01 k/uL [facility] Nucleated RBC/100 WBC (Bld) [Ratio] 0.0 /100 WBC [facility] Platelet mean volume (Bld) [Entitic vol] 9.5 fL 9.0 - 12.7 fL [facility] Platelets (Bld) [#/Vol] 363 10*3/uL 150 - 400 k/uL [facility] RBC (Bld) [#/Vol] 2.83 10*6/uL Low 4.20 - 6.0 0 m/uL [facility] WBC (Bld) [#/Vol] 8.09 10*3/uL 3.70 - 11.00 k/uL [facility] Comprehensive metabolic 2000 panelon 04-20-2022 Albumin [Mass/Vol] 3.9 g/dL 3.9 - 4.9 g/dL [facility] ALP [Catalytic activity/Vol] 138 U/L High 38 - 113 U/L [facility] ALT [Catalytic activity/Vol] 18 U/L 10 - 54 U/L [facility] Anion gap [Moles/Vol] 8 mmol/L Low 9 - 18 mmol/L [facility] AST [Catalytic activity/Vol] 18 U/L 14 - 40 U/L [facility] Bilirubin [Mass/Vol] 0.7 mg/dL 0.2 - 1 .3 mg/dL [facility] Calcium [Mass/Vol] 9.7 mg/dL 8.5 - 10. 2 mg/dL [facility] Chloride [Moles/Vol] 103 mmol/L 97 - 10 5 mmol/L [facility] CO2 [Moles/Vol] 24 mmol/L 22 - 30 mmol/L [facility] Creatinine [Mass/Vol] 0.73 mg/dL 0.73 - 1.22 mg/dL [facility] Estimated Glomerular Filtration Rate 98 mL/min/1.73m >=60 mL/min/1.73 m [facility] Glucose [Mass/Vol] 107 mg/dL High 74 - 99 mg/dL [facility] Potassium [Moles/Vol] 4.8 mmol/L 3.7 - 5.1 mmol/L [facility] Protein [Mass/Vol] 6.6 g/dL 6.3 - 8.0 g/dL [facility] Sodium [Moles/Vol] 135 mmol/L Low 136 - 144 mmol/L [facility] Urea nitrogen [Mass/Vol] 16 mg/dL 9 - 24 mg/dL [facility] Comprehensive metabolic 2000 panelon 04-06-2022 Albumin [Mass/Vol] 4.1 g/dL 3.9 - 4.9 g/dL [facility] ALP [Catalytic activity/Vol] 155 U/L High 38 - 113 U/L [facility] ALT [Catalytic activity/Vol] 38 U/L 10 - 54 U/L [facility] Anion gap [Moles/Vol] 8 mmol/L Low 9 - 18 mmol/L [facility] AST [Catalytic activity/Vol] 32 U/L 14 - 40 U/L [facility] Bilirubin [Mass/Vol] 0.7 mg/dL 0.2 - 1 .3 mg/dL [facility] Calcium [Mass/Vol] 9.9 mg/dL 8.5 - 10. 2 mg/dL [facility] Chloride [Moles/Vol] 106 mmol/L High 97 - 10 5 mmol/L [facility] CO2 [Moles/Vol] 26 mmol/L 22 - 30 mmol/L [facility] Creatinine [Mass/Vol] 0.74 mg/dL 0.73 - 1.22 mg/dL [facility] Estimated Glomerular Filtration Rate 97 mL/min/1.73m >=60 mL/min/1.73 m [facility] Glucose [Mass/Vol] 160 mg/dL High 74 - 99 mg/dL [facility] Potassium [Moles/Vol] 5.0 mmol/L 3.7 - 5.1 mmol/L [facility] Protein [Mass/Vol] 6.8 g/dL 6.3 - 8.0 g/dL [facility] Sodium [Moles/Vol] 140 mmol/L 136 - 144 mmol/L [facility] Urea nitrogen [Mass/Vol] 14 mg/dL 9 - 24 mg/dL [facility] CBC W Auto Differential pane l (Bld)on 03-16-2022 Basophils (Bld) [#/Vol] 0.04 10*3/uL <0.11 k/uL [facility] Basophils/100 WBC (Bld) 1.1 % [facility] Differential cell count method Nom (Bld) Auto [facility] Eosinophils (Bld) [#/Vol] 0.04 10*3/uL <0.46 k/uL [facility] Eosinophils/100 WBC (Bld) 1.1 % [facility] Erythrocyte distribution width (RBC) [Ratio] 14.4 % 11.5 - 15.0 % [facility] Hematocrit (Bld) [Volume fraction] 25.4 % Low 39.0 - 51.0 % [facility] Hemoglobin (Bld) [Mass/Vol] 8.5 g/dL Low 13.0 - 17.0 g/dL [facility] Immature granulocytes (Bld) [#/Vol] <0.10 k/uL [facility] Immature granulocytes/100 WBC (Bld) 0.5 % [facility] Lymphocytes (Bld) [#/Vol] 1.38 10*3/uL 1.00 - 4.00 k/uL [facility] Lymphocytes/100 WBC (Bld) 37.9 % [facility] MCH (RBC) [Entitic mass] 33.7 pg 26.0 - 34.0 pg [facility] MCHC (RBC) [Mass/Vol] 33.5 g/dL 30.5 - 36.0 g/dL [facility] MCV (RBC) [Entitic vol] 100.8 fL High 80.0 - 100.0 fL [facility] Monocytes (Bld) [#/Vol] 0.28 10*3/uL <0.87 k/uL [facility] Monocytes/100 WBC (Bld) 7.7 % [facility] Neutrophils (Bld) [#/Vol] 1.88 10*3/uL 1.45 - 7.50 k/uL [facility] Neutrophils/100 WBC (Bld) 51.7 % [facility] Nucleated RBC (Bld) [#/Vol] <0.01 k/uL [facility] Nucleated RBC/100 WBC (Bld) [Ratio] 0.0 /100 WBC [facility] Platelet mean volume (Bld) [Entitic vol] 10.1 fL 9.0 - 12.7 fL [facility] Platelets (Bld) [#/Vol] 174 10*3/uL 150 - 400 k/uL [facility] RBC (Bld) [#/Vol] 2.52 10*6/uL Low 4.20 - 6.0 0 m/uL [facility] WBC (Bld) [#/Vol] 3.64 10*3/uL Low 3.70 - 11.00 k/uL [facility] Comprehensive metabolic 2000 panelon 03-16-2022 Albumin [Mass/Vol] 4.0 g/dL 3.9 - 4.9 g/dL [facility] ALP [Catalytic activity/Vol] 153 U/L High 38 - 113 U/L [facility] ALT [Catalytic activity/Vol] 27 U/L 10 - 54 U/L [facility] Anion gap [Moles/Vol] 5 mmol/L Low 9 - 18 mmol/L [facility] AST [Catalytic activity/Vol] 22 U/L 14 - 40 U/L [facility] Bilirubin [Mass/Vol] 1.0 mg/dL 0.2 - 1 .3 mg/dL [facility] Calcium [Mass/Vol] 10.0 mg/dL 8.5 - 10. 2 mg/dL [facility] Chloride [Moles/Vol] 103 mmol/L 97 - 10 5 mmol/L [facility] CO2 [Moles/Vol] 26 mmol/L 22 - 30 mmol/L [facility] Creatinine [Mass/Vol] 0.73 mg/dL 0.73 - 1.22 mg/dL [facility] Estimated Glomerular Filtration Rate 98 mL/min/1.73m >=60 mL/min/1.73 m [facility] Glucose [Mass/Vol] 125 mg/dL High 74 - 99 mg/dL [facility] Potassium [Moles/Vol] 4.5 mmol/L 3.7 - 5.1 mmol/L [facility] Protein [Mass/Vol] 6.7 g/dL 6.3 - 8.0 g/dL [facility] Sodium [Moles/Vol] 134 mmol/L Low 136 - 144 mmol/L [facility] Urea nitrogen [Mass/Vol] 16 mg/dL 9 - 24 mg/dL [facility] CA 19-9 BLDon 03-08-2022 Cancer Ag 19-9 Qn 442.0 [arb'U]/mL High NINF - 36.0 U/mL [facility] Comment on above: Cancer antigen 19-9 test is used as an aid in monitoring response to treatment or recurrence in patients with established pancreatic, hepatobiliary, or gastrointestinal malignancies. Clinical correlation is required. The CA 19-9 Antigen test was performed using the [employer] QuantConnectel DXI paramagnetic particle chemiluminescent immunoassay method. Results obtained with different assay methods or kits cannot be used interchangeably. Cancer Ag 19-9 Qnon 03-08-20 Interpretation and review of laboratory results Abnormal [facility] CBC W Auto Differential pane l (Bld)on 03-07-2022 Basophils (Bld) [#/Vol] 0.03 10*3/uL [facility] Basophils/100 WBC (Bld) 0.3 % [facility] Differential cell count method Nom (Bld) Auto [facility] Eosinophils (Bld) [#/Vol] 0.09 10*3/uL [facility] Eosinophils/100 WBC (Bld) 0.8 % [facility] Erythrocyte distribution width (RBC) [Ratio] 14.6 % 11.5 - 15.0 % [facility] Hematocrit (Bld) [Volume fraction] 33.4 % Low 39.0 - 51.0 % [facility] Hemoglobin (Bld) [Mass/Vol] 11.0 g/dL Low 13.0 - 17.0 g/dL [facility] Immature granulocytes (Bld) [#/Vol] 0.03 10*3/uL [facility] Immature granulocytes/100 WBC (Bld) 0.3 % [facility] Interpretation and review of laboratory results Abnormal [facility] Lymphocytes (Bld) [#/Vol] 1.76 10*3/uL [facility] Lymphocytes/100 WBC (Bld) 16.4 % [facility] MCH (RBC) [Entitic mass] 33.1 pg 26.0 - 34.0 pg [facility] MCHC (RBC) [Mass/Vol] 32.9 g/dL 30.5 - 36.0 g/dL [facility] MCV (RBC) [Entitic vol] 100.6 fL High 80.0 - 100.0 fL [facility] Monocytes (Bld) [#/Vol] 0.69 10*3/uL [facility] Monocytes/100 WBC (Bld) 6.4 % [facility] Neutrophils (Bld) [#/Vol] 8.16 10*3/uL High [facility] Neutrophils/100 WBC (Bld) 75.8 % [facility] Nucleated RBC (Bld) [#/Vol] [facility] Nucleated RBC/100 WBC (Bld) [Ratio] 0.0 % /100 WBC [facility] Platelet mean volume (Bld) [Entitic vol] 9.5 fL 9.0 - 12.7 fL [facility] Platelets (Bld) [#/Vol] 257 10*3/uL [facility] RBC (Bld) [#/Vol] 3.32 10*6/uL Low 4.20 - 6.0 0 m/uL [facility] WBC (Bld) [#/Vol] 10.76 10*3/uL [facility] This is an appended report. These results have been appended to a previously verified report. [facility] CT Chest W contrast [place] IMPRESSION: 1. Stable appearance of left lower lobe 4 mm nodule. No new or enlarging nodules are visualized. 2. Slight interval increase in size of a superior mediastinal node. No additional bulky intrathoracic adenopathy is seen. 3. Findings of prior granulomatous disease. Transcribe Date/Time: Mar 07 2022 4:46P Dictated by: JUAN CARLOS LINCOLN MD This examination was interpreted and the report reviewed and electronically signed by: JUAN CARLOS LINCOLN MD on Mar 07 2022 5:19PM EST Thank you for allowing us to participate in the care of your patient. Should there be any questions regarding this interpretation, please call [phone]. If you are unable to reach us at the number above, please feel free to contact [facility] at [phone]. 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 Technique: Spiral CT acquisition of the chest from the thoracic inlet to the upper abdomen following IV contrast. MQ: CTCW_6 Contrast: 50 mL Omnipaque [address] Radiation dose: Integrated Dose-length product (DLP) for this visit = 286 mGy*cm CT Dose Reduction Employed: Comparison: CT performed 03/06/2020 RESULT: Limitations: None. Lines, tubes, and devices: There is a MediPort in the right chest wall. Lung parenchyma and airways: No dense lobar consolidation is seen. Calcified granulomas are noted in the right lower lobe. There is a stable left lower lobe nodule measuring 4 mm (4:135). No additional nodular opacities are visualized. The central airways are widely patent. Pleural space: No pleural effusion. No pleural thickening. Lower neck, lymph nodes, and mediastinum: There is a prominent superior mediastinal node (3:51) measuring up to 8 mm in short axis, previously 6 mm. No additional bulky mediastinal nodes are seen. Calcified right hilar nodes are seen, in keeping with prior granulomatous disease. Heart, pericardium, and thoracic vessels: The thoracic aorta and main pulmonary artery are normal in caliber. The cardiac chambers are normal in size. Mild coronary artery atherosclerotic calcification is noted. No pericardial effusion or thickening. Bones and soft tissues: Mild degenerative change is seen in the thoracic spine. No destructive osseous lesions are seen. Superficial soft tissues are unremarkable. Upper abdomen: Bulky mesenteric adenopathy is noted as seen on recently performed CT of the abdomen. Cable Installer Repairer Helper (topogram) images: No additional findings. 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 Technique: Spiral CT acquisition of the chest from the thoracic inlet to the upper abdomen following IV contrast. MQ: CTCW_6 Contrast: 50 mL Omnipaque [address] Radiation dose: Integrated Dose-length product (DLP) for this visit = 286 mGy*cm CT Dose Reduction Employed: Comparison: CT performed 03/06/2020 RESULT: Limitations: None. Lines, tubes, and devices: There is a MediPort in the right chest wall. Lung parenchyma and airways: No dense lobar consolidation is seen. Calcified granulomas are noted in the right lower lobe. There is a stable left lower lobe nodule measuring 4 mm (4:135). No additional nodular opacities are visualized. The central airways are widely patent. Pleural space: No pleural effusion. No pleural thickening. Lower neck, lymph nodes, and mediastinum: There is a prominent superior mediastinal node (3:51) measuring up to 8 mm in short axis, previously 6 mm. No additional bulky mediastinal nodes are seen. Calcified right hilar nodes are seen, in keeping with prior granulomatous disease. Heart, pericardium, and thoracic vessels: The thoracic aorta and main pulmonary artery are normal in caliber. The cardiac chambers are normal in size. Mild coronary artery atherosclerotic calcification is noted. No pericardial effusion or thickening. Bones and soft tissues: Mild degenerative change is seen in the thoracic spine. No destructive osseous lesions are seen. Superficial soft tissues are unremarkable. Upper abdomen: Bulky mesenteric adenopathy is noted as seen on recently performed CT of the abdomen. Cable Installer Repairer Helper (topogram) images: No additional findings. IMPRESSION IMPRESSION: 1. Stable appearance of left lower lobe 4 mm nodule. No new or enlarging nodules are visualized. 2. Slight interval increase in size of a superior mediastinal node. No additional bulky intrathoracic adenopathy is seen. 3. Findings of prior granulomatous disease. Transcribe Date/Time: Mar 07 2022 4:46P Dictated by: JUAN CARLOS LINCOLN MD This examination was interpreted and the report reviewed and electronically signed by: JUAN CARLOS LINCOLN MD on Mar 07 2022 5:19PM EST Thank you for allowing us to participate in the care of your patient. Should there be any questions regarding this interpretation, please call [phone]. If you are unable to reach us at the number above, please feel free to contact [facility] at [phone]. [facility] Radiology Study observation (narrative) [facility] CT Chest W contrast IVOrdere d By: [facility] Provider on 03-07-2022 [facility] Comprehensive metabolic 2000 panelOrdered By: Je Elias on 03-07-2022 Albumin [Mass/Vol] 4.1 g/dL 3.9 - 4.9 g/dL [facility] ALP [Catalytic activity/Vol] 160 U/L High 38 - 113 U/L [facility] ALT [Catalytic activity/Vol] 20 U/L 10 - 54 U/L [facility] Anion gap [Moles/Vol] 8 mmol/L Low 9 - 18 mmol/L [facility] AST [Catalytic activity/Vol] 20 U/L 14 - 40 U/L [facility] Bilirubin [Mass/Vol] 1.1 mg/dL 0.2 - 1 .3 mg/dL [facility] Calcium [Mass/Vol] 10.1 mg/dL 8.5 - 10. 2 mg/dL [facility] Chloride [Moles/Vol] 102 mmol/L 97 - 10 5 mmol/L [facility] CO2 [Moles/Vol] 26 mmol/L 22 - 30 mmol/L [facility] Creatinine [Mass/Vol] 0.72 mg/dL Low 0.73 - 1.22 mg/dL [facility] GFR/1.73 sq M.predicted among non-blacks MDRD (S/P/Bld) [Vol rate/Area] 98 mL/min/{1.73_m2} - PINF [facility] Comment on above: Estimated Glomerular Filtration [...] not accurately reflect actual GFR. Glucose [Mass/Vol] 113 mg/dL High 74 - 99 mg/dL [facility] Comment on above: The [place] [employer] (ADA) provides guidance for [...] Standards of Medical Care in Diabetes 2016, [place] [employer]. Diabetes Care. 2016.39(Suppl 1). Interpretation and review of laboratory results Abnormal [facility] Potassium [Moles/Vol] 4.6 mmol/L 3.7 - 5.1 mmol/L [facility] Protein [Mass/Vol] 7.0 g/dL 6.3 - 8.0 g/dL [facility] Sodium [Moles/Vol] 136 mmol/L 136 - 144 mmol/L [facility] Urea nitrogen [Mass/Vol] 18 mg/dL 9 - 24 mg/dL [facility] CREATININE BLDOrdered By: Marianne Bee on 02-15-2022 Creatinine [Mass/Vol] 0.74 mg/dL 0.73 - 1.22 mg/dL [facility] GFR/1.73 sq M.predicted among non-blacks MDRD (S/P/Bld) [Vol rate/Area] 97 mL/min/{1.73_m2} - PINF [facility] Comment on above: Estimated Glomerular Filtration [...] eGFR may not accurately reflect actual GFR. Interpretation and review of laboratory results Normal [facility] CT Pancreas W contrast [place] 02-15-2022 IMPRESSION: 1. Since 03/15/2021, marked increase in central [...] further assessment with nuclear medicine bone scan. Transcribe Date/Time: Feb 15 2022 2:46P Dictated by: ALDA SANCHEZ MD This examination was interpreted and the report reviewed and electronically signed by: ALDA SANCHEZ MD on Feb 15 2022 3:11PM EST Thank you for allowing us to participate in the care of your patient. Should there be any questions regarding this interpretation, please call [phone]. If you are unable to reach us at the number above, please feel free to contact [facility] at [phone]. DIVISION OF RADIOLOGY * * *Final Report* * * DATE OF EXAM: Feb 15 2022 11:30AM [facility] 0552 - CT PANCREAS W IVCON / PROCEDURE REASON: Other chronic pancreatitis (HCC) * * * * Physician Interpretation * * * * RESULT: EXAMINATION: CT ABDOMEN WITH IV CONTRAST CLINICAL HISTORY: Chronic pancreatitis. History of pancreatic adenocarcinoma, status post Whipple procedure. TECHNIQUE: CT of the abdomen was performed using standard technique, scanning from just above the dome of the diaphragm to the iliac crest. MQ: CTAbdW_4 Contrast: IV: 150 ml of Omnipaque 300 Oral: [address] Radiation dose: Integrated Dose-length product (DLP) for this visit = 994 mGy*cm. CT Dose Reduction Employed: Automated exposure control (AEC) COMPARISON: MRI abdomen 03/15/2021; CT abdomen and pelvis 02/05/2021; 12/26/2020 RESULT: Liver: No hepatic mass. Unchanged hepatic morphology. 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 Ill-defined soft tissue within the ellen hepatis surrounding the origin of the right portal vein (series 5, image 127) is unchanged and suspicious for infiltrative neoplasm. Biliary: No bile duct dilation. Spleen: Multiple calcified splenic granulomas are again noted. No splenomegaly. Pancreas: Operative changes reflect Whipple procedure. The remaining pancreas is normal in enhancement and morphology. A metallic pancreatic duct stent is in place, crossing the pancreaticojejunostomy. The pancreatic duct upstream to the stent is normal in caliber and measures 0.3-0.4 cm. No peripancreatic inflammation. There is unchanged ill-defined soft tissue surrounding the origin of the celiac artery (series 5, image 139) and extending along the common hepatic artery origin, suspicious for recurrent infiltrative neoplasm. Adrenals: No mass. Kidneys: There are bilateral renal cysts, measuring up to 7.3 cm along the medial left kidney. No suspicious renal mass. No hydronephrosis. GI tract: Imaged portions of bowel are normal in caliber and without evidence of wall thickening or obstruction. The gastrojejunostomy is widely patent. Lymph nodes: Interval increase in size of central mesenteric and retroperitoneal lymphadenopathy. Electric Fan Assembler lymph nodes are detailed as follows on series 8: -Image 45, central mesentery, 4.3 x 3 cm (previously 2.4 x 1.5 cm) -Image 53, left para-aortic, 3.4 x 2.8 cm (previously 1.4 x 1.9 cm) -Image 58, anterior aortocaval, 3.5 x 3.1 cm (previously 1.3 x 1.5 cm) -Image 66, anterior para-aortic, 2.3 x 2.3 cm (previously 0.5 x 0.8 cm) -Image 59, right posterior paracaval, 0.8 x 1 cm (previously 0.6 x 0.7 cm) Mesentery/Peritoneum: No ascites or mass. Retroperitoneum: No mass. Vasculature: - Abdominal aorta: Atherosclerotic calcifications without aneurysm. - Celiac and SMA: Patent without stenosis. - Portal venous system (SMV, splenic vein, portal vein and branches): Patent. - Hepatic veins: Patent. Bones/Soft Tissues: Degenerative changes involve the lumbar spine. No destructive lytic or blastic osseous abnormalities. Unchanged mottled attenuation of the pelvis, which may be secondary to marrow reconversion. Lower thorax: Unremarkable. Cable Installer Repairer Helper (topogram) images: No additional findings. DIVISION OF RADIOLOGY Provider, [facility] - 02/15/2022 * * *Final Report* * * DATE OF EXAM: Feb 15 2022 11:30AM [facility] 0552 - CT PANCREAS W IVCON / PROCEDURE REASON: Other chronic pancreatitis (HCC) * * * * Physician Interpretation * * * * RESULT: EXAMINATION: CT ABDOMEN WITH IV CONTRAST CLINICAL HISTORY: Chronic pancreatitis. History of pancreatic adenocarcinoma, status post Whipple procedure. TECHNIQUE: CT of the abdomen was performed using standard technique, scanning from just above the dome of the diaphragm to the iliac crest. MQ: CTAbdW_4 Contrast: IV: 150 ml of Omnipaque 300 Oral: [address] Radiation dose: Integrated Dose-length product (DLP) for this visit = 994 mGy*cm. CT Dose Reduction Employed: Automated exposure control (AEC) COMPARISON: MRI abdomen 03/15/2021; CT abdomen and pelvis 02/05/2021; 12/26/2020 RESULT: Liver: No hepatic mass. Unchanged hepatic morphology. 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 Ill-defined soft tissue within the ellen hepatis surrounding the origin of the right portal vein (series 5, image 127) is unchanged and suspicious for infiltrative neoplasm. Biliary: No bile duct dilation. Spleen: Multiple calcified splenic granulomas are again noted. No splenomegaly. Pancreas: Operative changes reflect Whipple procedure. The remaining pancreas is normal in enhancement and morphology. A metallic pancreatic duct stent is in place, crossing the pancreaticojejunostomy. The pancreatic duct upstream to the stent is normal in caliber and measures 0.3-0.4 cm. No peripancreatic inflammation. There is unchanged ill-defined soft tissue surrounding the origin of the celiac artery (series 5, image 139) and extending along the common hepatic artery origin, suspicious for recurrent infiltrative neoplasm. Adrenals: No mass. Kidneys: There are bilateral renal cysts, measuring up to 7.3 cm along the medial left kidney. No suspicious renal mass. No hydronephrosis. GI tract: Imaged portions of bowel are normal in caliber and without evidence of wall thickening or obstruction. The gastrojejunostomy is widely patent. Lymph nodes: Interval increase in size of central mesenteric and retroperitoneal lymphadenopathy. Electric Fan Assembler lymph nodes are detailed as follows on series 8: -Image 45, central mesentery, 4.3 x 3 cm (previously 2.4 x 1.5 cm) -Image 53, left para-aortic, 3.4 x 2.8 cm (previously 1.4 x 1.9 cm) -Image 58, anterior aortocaval, 3.5 x 3.1 cm (previously 1.3 x 1.5 cm) -Image 66, anterior para-aortic, 2.3 x 2.3 cm (previously 0.5 x 0.8 cm) -Image 59, right posterior paracaval, 0.8 x 1 cm (previously 0.6 x 0.7 cm) Mesentery/Peritoneum: No ascites or mass. Retroperitoneum: No mass. Vasculature: - Abdominal aorta: Atherosclerotic calcifications without aneurysm. - Celiac and SMA: Patent without stenosis. - Portal venous system (SMV, splenic vein, portal vein and branches): Patent. - Hepatic veins: Patent. Bones/Soft Tissues: Degenerative changes involve the lumbar spine. No destructive lytic or blastic osseous abnormalities. Unchanged mottled attenuation of the pelvis, which may be secondary to marrow reconversion. Lower thorax: Unremarkable. Cable Installer Repairer Helper (topogram) images: No additional findings. IMPRESSION IMPRESSION: 1. Since 03/15/2021, marked increase in central [...] further assessment with nuclear medicine bone scan. Transcribe Date/Time: Feb 15 2022 2:46P Dictated by: ALDA SANCHEZ MD This examination was interpreted and the report reviewed and electronically signed by: ALDA SANCHEZ MD on Feb 15 2022 3:11PM EST Thank you for allowing us to participate in the care of your patient. Should there be any questions regarding this interpretation, please call [phone]. If you are unable to reach us at the number above, please feel free to contact [facility] at [phone]. [facility] Radiology Study observation (narrative) [facility] CT Pancreas W contrast IVOrd ered By: [facility] Provider on 02-15-2022 [facility] PSA TOTAL AND %FREEon 2021 % FREE PSA 22 % Normal [facility] Comment on above: Result Comment: INTE RPRETIVE INFORMATION: Prostate Specific Antigen, Free Percentage [facility] uses the Connie Free PSA [...] prostate cancer in individual patients. Performed By: [facility] [address] [place] [address] Bearing Grinder: Marnie Diaz MD Performed By: #### P SAFT #### [facility] [address] [place] [address] PSA,FREE 0.4 ng/mL Normal [facility] Comment on above: Performed By: #### P SAFT #### [facility] [address] [place] [address] PSA,TOTAL 1.8 ng/mL Normal 0.0-4.0 [facility] Comment on above: Result Comment: INTE RPRETIVE [...] carcinoma. Performed By: #### P SAFT #### [facility] [address] [place] [address] RESPIRATORY PANEL PLUSon Adenovirus Not detected Normal NOT DETECTED [facility] Comment on above: Performed By: #### R SPLUS #### [facility] [address] [place] [address] Dr. Karen So Parapertusis Not detected Normal NOT DETECTED [facility] Comment on above: Performed By: #### R SPLUS #### [facility] [address] [place] [address] Dr. Karen Carter. Pertussis Not detected Normal NOT DETECTED [facility] Comment on above: Performed By: #### R SPLUS #### [facility] [address] [place] [address] Dr. Karen Connolly Chlamydia Pneumoniae Not detected Normal NOT DETECTED [facility] Comment on above: Performed By: #### R SPLUS #### [facility] [address] [place] [address] Dr. Karen Connolly Coronavirus 229E Not detected Normal NOT DETECTED [facility] Comment on above: Performed By: #### R SPLUS #### [facility] [address] [place] [address] Dr. Karen Connolly Coronavirus HKU1 Not detected Normal NOT DETECTED [facility] Comment on above: Performed By: #### R SPLUS #### [facility] [address] [place] [address] Dr. Karen Connolly Coronavirus NL63 Not detected Normal NOT DETECTED [facility] Comment on above: Performed By: #### R SPLUS #### [facility] [address] [place] [address] Dr. Karen Connolly Coronavirus OC43 Not detected Normal NOT DETECTED [facility] Comment on above: Performed By: #### R SPLUS #### [facility] [address] [place] [address] Dr. Karen Connolly Influenza A H1 2009 Not detected Normal NOT DETECTED [facility] Comment on above: Performed By: #### R SPLUS #### [facility] [address] [place] [address] Dr. Karen Connolly Influenza B Not detected Normal NOT DETECTED [facility] Comment on above: Performed By: #### R SPLUS #### [facility] [address] [place] [address] Dr. Karen Connolly Metapneumovirus Not detected Normal NOT DETECTED [facility] Comment on above: Performed By: #### R SPLUS #### [facility] [address] [place] [address] Dr. Karen Connolly Mycoplas. Pneumoniae Not detected Normal NOT DETECTED [facility] Comment on above: Performed By: #### R SPLUS #### [facility] [address] [place] [address] Dr. Karen Connolly Parainfluenza 1 Not detected Normal NOT DETECTED [facility] Comment on above: Performed By: #### R SPLUS #### [facility] [address] [place] [address] Dr. Karen Connolly Parainfluenza 2 Not detected Normal NOT DETECTED [facility] Comment on above: Performed By: #### R SPLUS #### [facility] [address] [place] [address] Dr. Karen Connolly Parainfluenza 3 Not detected Normal NOT DETECTED [facility] Comment on above: Performed By: #### R SPLUS #### [facility] [address] [place] [address] Dr. Karen Connolly Parainfluenza 4 Not detected Normal NOT DETECTED [facility] Comment on above: Performed By: #### R SPLUS #### [facility] [address] [place] [address] Dr. Karen Connolly Rhino/Enterovirus Not detected Normal NOT DETECTED [facility] Comment on above: Performed By: #### R SPLUS #### [facility] [address] [place] [address] Dr. Karen Connolly RP2 Header 1 RESPIRATORY PANEL: VIRUSES Normal [facility] Comment on above: Performed By: #### R SPLUS #### [facility] [address] [place] [address] Dr. Karen Connolly RP2 Header 2 RESPIRATORY PANEL: BACTERIA Normal [facility] Comment on above: Performed By: #### R SPLUS #### [facility] [address] [place] [address] Dr. Karen Connolly RSV Not detected Normal NOT DETECTED [facility] Comment on above: Performed By: #### R SPLUS #### [facility] [address] [place] [address] Dr. Karen Connolly SARS-CoV-2 (COVID-19) RNA MIRTHA+probe Ql (Unsp spec) Detected Critically abnormal NOT DETECTED [facility] Comment on above: Performed By: #### R SPLUS #### [facility] [address] [place] [address] Dr. Karen Connolly CBC AUTO DIFFon 03-11-2021 BASO # 0.0 103/ul Normal 0.0-0.1 [facility] Comment on above: Performed By: #### C BC #### [facility] [address] [place] [address] Dr. Karen Connolly Basophils/100 WBC (Bld) 0.4 % Normal 0.2-2.0 [facility] Comment on above: Performed By: #### C BC #### [facility] [address] [place] [address] Dr. Karen Connolly EO # 0.1 103/ul Normal 0.0-0.7 [facility] Comment on above: Performed By: #### C BC #### [facility] [address] [place] [address] Dr. Karen Connolly Eosinophils/100 WBC (Bld) 1.4 % Normal 0.9-7.0 [facility] Comment on above: Performed By: #### C BC #### [facility] [address] [place] [address] Dr. Karen Connolly Erythrocyte distribution width (RBC) [Ratio] 15.0 % Normal 11.0-15.0 [facility] Comment on above: Performed By: #### C BC #### [facility] [address] [place] [address] Dr. Karen Connolly Hematocrit (Bld) [Volume fraction] 31.7 % Critically low 42.0-54.0 [facility] Comment on above: Performed By: #### C BC #### [facility] [address] [place] [address] Dr. Karen Connolly Hemoglobin (Bld) [Mass/Vol] 10.0 g/dL Critically low 14.0-18.0 [facility] Comment on above: Performed By: #### C BC #### [facility] [address] [place] [address] Dr. Karen Connolly IG # 0.02 10e3/ul Normal 0.00-0.03 [facility] Comment on above: Performed By: #### C BC #### [facility] [address] [place] [address] Dr. Karen Connolly IG % 0.2 % Normal 0.0-0.5 [facility] Comment on above: Performed By: #### C BC #### [facility] [address] [place] [address] Dr. Karen Connolly LYMPH # 2.1 103/ul Normal 1.2-3.8 [facility] Comment on above: Performed By: #### C BC #### [facility] [address] [place] [address] Dr. Karen Connolly Lymphocytes/100 WBC (Bld) 26.3 % Normal 20.5-60.0 [facility] Comment on above: Performed By: #### C BC #### [facility] [address] [place] [address] Dr. Karen Connolly MANUAL DIFF REQ NO Normal [facility] Comment on above: Performed By: #### C BC #### [facility] [address] [place] [address] Dr. Karen Connolly MCH (RBC) [Entitic mass] 30.6 pg Normal 25.9-34.0 [facility] Comment on above: Performed By: #### C BC #### [facility] [address] [place] [address] Dr. Karen Connolly MCHC (RBC) [Mass/Vol] 31.5 g/dL Normal 29.9-35.2 [facility] Comment on above: Performed By: #### C BC #### [facility] [address] [place] [address] Dr. Karen Connolly MCV (RBC) [Entitic vol] 96.9 fL Critically high 80.0-94.0 [facility] Comment on above: Performed By: #### C BC #### [facility] [address] [place] [address] Dr. Karen Connolly MONO # 0.5 103/ul Normal 0.3-0.8 [facility] Comment on above: Performed By: #### C BC #### [facility] [address] [place] [address] Dr. Karen Connolly Monocytes/100 WBC (Bld) 6.6 % Normal 1.7-12.0 [facility] Comment on above: Performed By: #### C BC #### [facility] [address] [place] [address] Dr. Karen Connolly NEUT # 5.2 103/ul Normal 1.4-6.5 [facility] Comment on above: Performed By: #### C BC #### [facility] [address] [place] [address] Dr. Karen Connolly Neutrophils/100 WBC (Bld) 65.1 % Normal 43.0-75.0 [facility] Comment on above: Performed By: #### C BC #### [facility] [address] [place] [address] Dr. Karen Connolly Platelet mean volume (Bld) [Entitic vol] 10.4 fL Normal 9.5-13.5 [facility] Comment on above: Performed By: #### C BC #### [facility] [address] [place] [address] Dr. Karen Connolly PLT 280 103/ul Normal 150-450 [facility] Comment on above: Performed By: #### C BC #### [facility] [address] [place] [address] Dr. Karen Connolly RBC 3.27 106/ul Critically low 4.70-6.10 [facility] Comment on above: Performed By: #### C BC #### [facility] [address] [place] [address] Dr. Karen Connolly WBC 8.0 103/ul Normal 4.0-11.0 [facility] Comment on above: Performed By: #### C BC #### [facility] [address] [place] [address] Dr. Karen Connolly CBC AUTO DIFFon 03-04-2021 BASO # 0.0 103/ul Normal 0.0-0.1 [facility] Comment on above: Performed By: #### C BC #### [facility] [address] [place] [address] Dr. Karen Connolly Basophils/100 WBC (Bld) 0.4 % Normal 0.2-2.0 [facility] Comment on above: Performed By: #### C BC #### [facility] [address] [place] [address] Dr. Karen Connolly EO # 0.1 103/ul Normal 0.0-0.7 [facility] Comment on above: Performed By: #### C BC #### [facility] [address] [place] [address] Dr. Karen Connolly Eosinophils/100 WBC (Bld) 1.2 % Normal 0.9-7.0 [facility] Comment on above: Performed By: #### C BC #### [facility] [address] [place] [address] Dr. Karen Connolly Erythrocyte distribution width (RBC) [Ratio] 15.4 % Critically high 11.0-15.0 [facility] Comment on above: Performed By: #### C BC #### [facility] [address] [place] [address] Dr. Karen Connolly Hematocrit (Bld) [Volume fraction] 29.7 % Critically low 42.0-54.0 [facility] Comment on above: Performed By: #### C BC #### [facility] [address] [place] [address] Dr. Karen Connolly Hemoglobin (Bld) [Mass/Vol] 9.3 g/dL Critically low 14.0-18.0 [facility] Comment on above: Performed By: #### C BC #### [facility] [address] [place] [address] Dr. Karen Connolly IG # 0.01 10e3/ul Normal 0.00-0.03 [facility] Comment on above: Performed By: #### C BC #### [facility] [address] [place] [address] Dr. Karen Connolly IG % 0.2 % Normal 0.0-0.5 [facility] Comment on above: Performed By: #### C BC #### [facility] [address] [place] [address] Dr. Karen Connolly LYMPH # 1.4 103/ul Normal 1.2-3.8 [facility] Comment on above: Performed By: #### C BC #### [facility] [address] [place] [address] Dr. Karen Connolly Lymphocytes/100 WBC (Bld) 24.7 % Normal 20.5-60.0 [facility] Comment on above: Performed By: #### C BC #### [facility] [address] [place] [address] Dr. Karen Connolly MANUAL DIFF REQ NO Normal [facility] Comment on above: Performed By: #### C BC #### [facility] [address] [place] [address] Dr. Karen Connolly MCH (RBC) [Entitic mass] 30.1 pg Normal 25.9-34.0 [facility] Comment on above: Performed By: #### C BC #### [facility] [address] [place] [address] Dr. Karen Connolly MCHC (RBC) [Mass/Vol] 31.3 g/dL Normal 29.9-35.2 [facility] Comment on above: Performed By: #### C BC #### [facility] [address] [address] [address] Karen Connolly MCV (RBC) [Entitic vol] 96.1 fL Critically high 80.0-94.0 [facility] Comment on above: Performed By: #### C BC #### [facility] [address] [place] [address] Dr. Karen Connolly MONO # 0.6 103/ul Normal 0.3-0.8 [facility] Comment on above: Performed By: #### C BC #### [facility] [address] [place] [address] Dr. Karen Connolly Monocytes/100 WBC (Bld) 10.6 % Normal 1.7-12.0 [facility] Comment on above: Performed By: #### C BC #### [facility] [address] [place] [address] Dr. Karen Connolly NEUT # 3.6 103/ul Normal 1.4-6.5 [facility] Comment on above: Performed By: #### C BC #### [facility] [address] [place] [address] Dr. Karen Connolly Neutrophils/100 WBC (Bld) 62.9 % Normal 43.0-75.0 [facility] Comment on above: Performed By: #### C BC #### [facility] [address] [place] [address] Dr. Karen Connolly Platelet mean volume (Bld) [Entitic vol] 10.0 fL Normal 9.5-13.5 [facility] Comment on above: Performed By: #### C BC #### [facility] [address] [place] [address] Dr. Karen Connolly PLT 258 103/ul Normal 150-450 [facility] Comment on above: Performed By: #### C BC #### [facility] [address] [place] [address] Dr. Karen Connolly RBC 3.09 106/ul Critically low 4.70-6.10 [facility] Comment on above: Performed By: #### C BC #### [facility] [address] [address] [address] Karen Connolly WBC 5.7 103/ul Normal 4.0-11.0 [facility] Comment on above: Performed By: #### C BC #### [facility] [address] [place] [address] Dr. Karen Connolly CBC AUTO DIFFon 02-25-2021 BASO # 0.1 103/ul Normal 0.0-0.1 [facility] Comment on above: Performed By: #### C BC #### [facility] [address] [address] [address] Karen Connolly Basophils/100 WBC (Bld) 0.8 % Normal 0.2-2.0 [facility] Comment on above: Performed By: #### C BC #### [facility] [address] [place] [address] Dr. Karen Connolly EO # 0.9 103/ul Critically high 0.0-0.7 [facility] Comment on above: Performed By: #### C BC #### [facility] [address] [place] [address] Dr. Karen Connolly Eosinophils/100 WBC (Bld) 9.7 % Critically high 0.9-7.0 [facility] Comment on above: Performed By: #### C BC #### [facility] [address] [place] [address] Dr. Karen Connolly Erythrocyte distribution width (RBC) [Ratio] 15.1 % Critically high 11.0-15.0 [facility] Comment on above: Performed By: #### C BC #### [facility] [address] [place] [address] Dr. Karen Connolly Hematocrit (Bld) [Volume fraction] 29.3 % Critically low 42.0-54.0 [facility] Comment on above: Performed By: #### C BC #### [facility] [address] [place] [address] Dr. Karen Connolly Hemoglobin (Bld) [Mass/Vol] 9.3 g/dL Critically low 14.0-18.0 [facility] Comment on above: Performed By: #### C BC #### [facility] [address] [place] [address] Dr. Karen Connolly IG # 0.02 10e3/ul Normal 0.00-0.03 [facility] Comment on above: Performed By: #### C BC #### [facility] [address] [place] [address] Dr. Karen Connolly IG % 0.2 % Normal 0.0-0.5 [facility] Comment on above: Performed By: #### C BC #### [facility] [address] [place] [address] Dr. Karen Connolly LYMPH # 2.2 103/ul Normal 1.2-3.8 [facility] Comment on above: Performed By: #### C BC #### [facility] [address] [place] [address] Dr. Karen Connolly Lymphocytes/100 WBC (Bld) 24.3 % Normal 20.5-60.0 [facility] Comment on above: Performed By: #### C BC #### [facility] [address] [place] [address] Dr. Karen Connolly MANUAL DIFF REQ NO Normal [facility] Comment on above: Performed By: #### C BC #### [facility] [address] [place] [address] Dr. Karen Connolly MCH (RBC) [Entitic mass] 30.7 pg Normal 25.9-34.0 [facility] Comment on above: Performed By: #### C BC #### [facility] [address] [place] [address] Dr. Karen Connolly MCHC (RBC) [Mass/Vol] 31.7 g/dL Normal 29.9-35.2 [facility] Comment on above: Performed By: #### C BC #### [facility] [address] [place] [address] Dr. Karen Connolly MCV (RBC) [Entitic vol] 96.7 fL Critically high 80.0-94.0 [facility] Comment on above: Performed By: #### C BC #### [facility] [address] [address] [address] Karen Connolly MONO # 0.6 103/ul Normal 0.3-0.8 [facility] Comment on above: Performed By: #### C BC #### [facility] [address] [address] [address] Karen Connolly Monocytes/100 WBC (Bld) 6.9 % Normal 1.7-12.0 [facility] Comment on above: Performed By: #### C BC #### [facility] [address] [address] [address] Karen Connolly NEUT # 5.3 103/ul Normal 1.4-6.5 [facility] Comment on above: Performed By: #### C BC #### [facility] [address] [place] [address] Dr. Karen Connolly Neutrophils/100 WBC (Bld) 58.1 % Normal 43.0-75.0 [facility] Comment on above: Performed By: #### C BC #### [facility] [address] [address] [address] Karen Connolly Platelet mean volume (Bld) [Entitic vol] 9.6 fL Normal 9.5-13.5 [facility] Comment on above: Performed By: #### C BC #### [facility] [address] [address] [address] Karen Connolly PLT 317 103/ul Normal 150-450 [facility] Comment on above: Performed By: #### C BC #### [facility] [address] [address] [address] Karen Connolly RBC 3.03 106/ul Critically low 4.70-6.10 [facility] Comment on above: Performed By: #### C BC #### [facility] [address] [address] [address] Karen Connolly WBC 9.0 103/ul Normal 4.0-11.0 [facility] Comment on above: Performed By: #### C BC #### [facility] [address] [address] [address] Karen Connolly Ambulatory Clinical Summaryo n 08-17-2020 Ambulatory Clinical Summary {[id number] Normal Miguel [facility] Patient Educationon 08-18-19 21 Patient Education Benign [...] Document Reviewed: 01/11/2008 ExitCare? Patient Information ?[address] [facility] Urology Office/Clinic Noteon 08-17-2020 Urology Office/Clinic [...] Follow-up With When Contact Information GERI GODWIN, Billy [address] [address]- [phone] Additional Instructions: [email or web address] Patient Education Benign Prostatic Hyperplasia IEufemia , personally scribed for Dr. Nevarez on 08/17/2020 15:17:45. . Documentation recorded by the scribeEufemia, accurately reflects the services(s) I performed and [...] Protein Urine Dipstick: Negative (08/17/20 14:35:00) Specific [place] Urine Dipstick: 1.025 (08/17/20 14:35:00) Urine Appearan (more content not included)... Normal [facility] Comment on above: Result Comment: Elec tronically Signed By: Billy NEVAREZ MD\.br\Date and Time Signed: 08/17/20 15:19 EDT\.br\Electronically Co-Signed By: Eufemia Gomes MA\.br\Date and Time Co-Signed: 08/17/20 15:18 EDT Lab Report[facility] 05-06-2020 Lab Reports [id number]:[address] [facility] CBC Auto Differentialon 03-23 Basophils (Bld) [#/Vol] 0.04 10*3/uL [place] Basophils/100 WBC (Bld) 1 % 0 - 2 % [place] Differential Type NOT REPORTED [place] Eosinophils (Bld) [#/Vol] 0.05 10*3/uL [place] Eosinophils/100 WBC (Bld) 1 % 1 - 4 % [place] Erythrocyte distribution width (RBC) [Ratio] 19.1 % High 11.8 - 14.4 % [place] Hematocrit (Bld) [Volume fraction] 25.6 % Low 40.7 - 50.3 % [place] Hemoglobin (Bld) [Mass/Vol] 7.7 g/dL Low 13 - 17 g/dL [place] Immature granulocytes (Bld) [#/Vol] 0.05 10*3/uL [place] Immature granulocytes (Bld) [#/Vol] 1 % High 0 [place] Interpretation and review of laboratory results Abnormal [place] Lymphocytes (Bld) [#/Vol] 1.97 10*3/uL [place] Lymphocytes/100 WBC (Bld) 29 % 24 - 43 % [place] MCH (RBC) [Entitic mass] 26.7 pg 25.2 - 33.5 pg [place] MCHC (RBC) [Mass/Vol] 30.1 g/dL 28.4 - 34.8 g/dL [place] MCV (RBC) [Entitic vol] 88.9 fL 82.6 - 102.9 fL [place] Monocytes (Bld) [#/Vol] 0.56 10*3/uL [place] Monocytes/100 WBC (Bld) 8 % 3 - 12 % [place] Platelet mean volume (Bld) [Entitic vol] 8.6 fL 8.1 - 13.5 fL [place] Platelets (Bld) [#/Vol] NOT REPORTED [place] Platelets (Bld) [#/Vol] 474 10*3/uL [place] RBC (Bld) [#/Vol] 2.88 10*6/uL Low 4.21 - 5.7 7 m/uL [place] RBC morphology finding Nom (Bld) NOT REPORTED [place] Segmented neutrophils/100 WBC (Bld) 60 % 36 - 65 % [place] Segs Absolute 4.21 [place] WBC (Bld) [#/Vol] 0.0 10*3/uL 0.0 per 10 0 WBC [place] WBC (Bld) [#/Vol] 6.9 10*3/uL [place] WBC Morphology NOT REPORTED [place] CBC with Diffon 04-15-2020 Abs. Basophil 0.04 k/uL Normal 0.00-0.20 [facility] Comment on above: Performed By: #### C P, CDP #### [facility] [address] [place] [address] Dr. [place] [id number] Dragline Mechanic: Farhad Turner MD Abs.Imm.Granulocyte 0.05 k/uL Normal 0.00-0.30 [facility] Comment on above: Performed By: #### C P, CDP #### [address] [place] [phone] Dragline Mechanic: Farhad Turner MD Abs.Neutrophil (Seg) 4.21 k/uL Normal 1.50-8.10 [facility] Comment on above: Performed By: #### C P, CDP #### [address] [place] [address] Dragline Mechanic: Farhad Turner MD Basophils/100 WBC (Bld) 1 % Normal 0-2 [facility] Comment on above: Performed By: #### C P, CDP #### [address] [place] [phone] Dragline Mechanic: Farhad Turner MD Eosinophils (Bld) [#/Vol] 0.05 10*3/uL Normal 0.00-0.44 [facility] Comment on above: Performed By: #### C P, CDP #### [facility] [address] [place], [facility]83 Dragline Mechanic: Farhad Turner MD Eosinophils/100 WBC (Bld) 1 % Normal 1-4 [facility] Comment on above: Performed By: #### C P, CDP #### [facility] [address] [place], [facility]83 Dragline Mechanic: Farhad Turner MD Erythrocyte distribution width (RBC) [Ratio] 19.1 % High 11.8-14.4 [facility] Comment on above: Performed By: #### C P, CDP #### [address] [place]ás[place], [place] [address] Dragline Mechanic: Farhad Turner MD Hematocrit (Bld) [Volume fraction] 25.6 % Low 40.7-50.3 [facility] Comment on above: Performed By: #### C P, CDP #### [address] [place]ás[place], [place] [address] Dragline Mechanic: Farhad Turner MD Hemoglobin (Bld) [Mass/Vol] 7.7 g/dL Low 13.0-17.0 [facility] Comment on above: Performed By: #### C P, CDP #### [address] [place]ás[place], [facility]83 Dragline Mechanic: Farhad Turner MD Immature granulocytes (Bld) [#/Vol] 1 % High 0 [facility] Comment on above: Performed By: #### C P, CDP #### [facility] [address] [place], [facility]83 Dragline Mechanic: Farhad Turner MD Lymphocytes (Bld) [#/Vol] 1.97 10*3/uL Normal 1.10-3.70 [facility] Comment on above: Performed By: #### C P, CDP #### [address] [place]ás[place], [facility]83 Dragline Mechanic: Farhad Turner MD Lymphocytes/100 WBC (Bld) 29 % Normal 24-43 [facility] Comment on above: Performed By: #### C P, CDP #### [facility] [address] [place]ás[place] [phone] Dragline Mechanic: Farhad Turner MD MCH (RBC) [Entitic mass] 26.7 pg Normal 25.2-33.5 [facility] Comment on above: Performed By: #### C P, CDP #### [facility] [address] [place], [place] [phone] Dragline Mechanic: Farhad Turner MD MCHC (RBC) [Mass/Vol] 30.1 g/dL Normal 28.4-34.8 [facility] Comment on above: Performed By: #### C P, CDP #### [facility] [address] [place], [place] [phone] Dragline Mechanic: Farhad Turner MD MCV (RBC) [Entitic vol] 88.9 fL Normal 82.6-102.9 [facility] Comment on above: Performed By: #### C P, CDP #### [facility] [address] [place], [place] [phone] Dragline Mechanic: Farhad Turner MD Monocytes (Bld) [#/Vol] 0.56 10*3/uL Normal 0.10-1.20 [facility] Comment on above: Performed By: #### C P, CDP #### [facility] [address] [place], [place] [phone] Dragline Mechanic: Farhad Turner MD Monocytes/100 WBC (Bld) 8 % Normal 3-12 [facility] Comment on above: Performed By: #### C P, CDP #### [facility] [address] [place], [place] [phone] Dragline Mechanic: Farhad Turner MD Neutrophil (Seg) 60 % Normal 36-65 [facility] Comment on above: Performed By: #### C P, CDP #### [facility] [address] [place], [place] [phone] Dragline Mechanic: Farhad Turner MD NRBC Automated 0.0 per 100 WBC Normal 0.0 [facility] Comment on above: Performed By: #### C P, CDP #### [facility] [address] [place], [facility]83 Dragline Mechanic: Farhad Turner MD Platelet mean volume (Bld) [Entitic vol] 8.6 fL Normal 8.1-13.5 [facility] Comment on above: Performed By: #### C P, CDP #### [facility] [address] [place], [facility]83 Dragline Mechanic: Farhad Turner MD Platelets (Bld) [#/Vol] 474 10*3/uL High 138-453 [facility] Comment on above: Performed By: #### C P, CDP #### [facility] [address] [place], [facility]83 Dragline Mechanic: Farhad Turner MD RBC (Bld) [#/Vol] 2.88 10*6/uL Low 4.21-5.77 [facility] Comment on above: Performed By: #### C P, CDP #### [facility] [address] [place], [place] [address] Dragline Mechanic: Farhad Turner MD WBC (Bld) [#/Vol] 6.9 10*3/uL Normal 3.5-11.3 [facility] Comment on above: Performed By: #### C P, CDP #### [facility] [address] [place], [place] [phone] Dragline Mechanic: Farhad Turner MD Auto Diff Performed NOT REPORTED Normal [facility] Comment on above: Performed By: #### C P, CDP #### [facility] [address] [place], [place] [phone] Dragline Mechanic: Farhad Turner MD Platelets (Bld) [#/Vol] NOT REPORTED Normal [facility] Comment on above: Performed By: #### C P, CDP #### [facility] [address] [place], [place] [phone] Dragline Mechanic: Farhad Turner MD RBC morphology finding Nom (Bld) NOT REPORTED Normal [facility] Comment on above: Performed By: #### C P, CDP #### [facility] [address] [place], [place] [phone] Dragline Mechanic: Farhad Turner MD WBC Morphology NOT REPORTED Normal [facility] Comment on above: Performed By: #### C P, CDP #### [facility] [address] [place], [place] [phone] Dragline Mechanic: Farhad Turner MD Comp Metabolic Profon 2019 (cont.) Normal [facility] Comment on above: Result Comment: Aver age GFR for 60-69 years old: 85 mL/min/1.73sq m Chronic Kidney Disease: <60 mL/min/1.73sq m Kidney failure: <15 mL/min/1.73sq m eGFR calculated using average adult body mass. Additional eGFR calculator available at: http://www.2DOLife.com.OpenDoor/multiple_crcl_2012.htm Performed By: #### C P, CDP #### [facility] [address] [place], [place] [address] Dragline Mechanic: Farhad Turner MD Albumin [Mass/Vol] 2.0 g/dL Low 3.5-5.2 [facility] Comment on above: Performed By: #### C P, CDP #### [facility] [address] [place], [place] [address] Dragline Mechanic: Farhad Turner MD Albumin/Globulin [Mass ratio] 0.5 {ratio} Low 1.0-2.5 [facility] Comment on above: Performed By: #### C P, CDP #### [facility] [address] [place], [place] [phone] Dragline Mechanic: Farhad Turner MD Alkaline Phos 74 U/L Normal 40-129 [facility] Comment on above: Performed By: #### C P, CDP #### [facility] [address] [place], [place] [phone] Dragline Mechanic: Farhad Turner MD ALT [Catalytic activity/Vol] 6 U/L Normal 5-41 [facility] Comment on above: Performed By: #### C P, CDP #### [facility] [address] [place], [place] [phone] Dragline Mechanic: Farhad Turner MD Anion gap [Moles/Vol] 5 mmol/L Low 9-17 [facility] Comment on above: Performed By: #### C P, CDP #### [facility] [address] [place], [place] [phone] Dragline Mechanic: Farhad Turner MD AST [Catalytic activity/Vol] 12 U/L Normal <40 [facility] Comment on above: Performed By: #### C P, CDP #### [facility] [address] [place], [place] [phone] Dragline Mechanic: Farhad Turner MD Bilirubin Ql (U) 0.32 mg/dL Normal 0.3-1.2 [facility] Comment on above: Performed By: #### C P, CDP #### [facility] [address] [place], [place] [phone] Dragline Mechanic: Farhad Turner MD BUN/CRE Ratio 21 High 9-20 [facility] Comment on above: Performed By: #### C P, CDP #### [facility] [address] [place], [place] [phone] Dragline Mechanic: Farhad Turner MD Calcium [Mass/Vol] 9.4 mg/dL Normal 8.6-10.4 [facility] Comment on above: Performed By: #### C P, CDP #### [facility] [address] [place], [place] [phone] Dragline Mechanic: Farhad Turner MD Chloride [Moles/Vol] 101 mmol/L Normal 98-107 [facility] Comment on above: Performed By: #### C P, CDP #### [facility] [address] [place], [place] [phone] Dragline Mechanic: Farhad Turner MD CO2 [Moles/Vol] 30 mmol/L Normal 20-31 [facility] Comment on above: Performed By: #### C P, CDP #### [facility] [address] [place], [place] [phone] Dragline Mechanic: Farhad Turner MD Creatinine [Mass/Vol] 0.28 mg/dL Low 0.70-1.20 [facility] Comment on above: Performed By: #### C P, CDP #### [facility] [address] [place], [place] [phone] Dragline Mechanic: Farhad Turner MD GFR, Amer >60 Normal >60 [facility] Comment on above: Performed By: #### C P, CDP #### [facility] [address] [place], [place] [address] Dragline Mechanic: Farhad Turner MD GFR,non Amer >60 Normal >60 [facility] Comment on above: Performed By: #### C P, CDP #### [facility] [address] [place] [address] Dragline Mechanic: Farhad Turner MD Glucose [Mass/Vol] 120 mg/dL High 70-99 [facility] Comment on above: Performed By: #### C P, CDP #### [facility] [address] [place], [place] [phone] Dragline Mechanic: Farhad Turner MD Potassium [Moles/Vol] 3.3 mmol/L Low 3.7-5.3 [facility] Comment on above: Performed By: #### C P, CDP #### [facility] [address] [place], [place] [address] Dragline Mechanic: Farhad Turner MD Protein [Mass/Vol] 5.9 g/dL Low 6.4-8.3 [facility] Comment on above: Performed By: #### C P, CDP #### [facility] [address] [place], [place] [address] Dragline Mechanic: Farhad Turner MD Sodium [Moles/Vol] 136 mmol/L Normal 135-144 [facility] Comment on above: Performed By: #### C P, CDP #### [facility] [address] [place], [place] [address] Dragline Mechanic: Farhad Turner MD Staging: Normal [facility] Comment on above: Result Comment: Stag e 1: Some kidney damage normal GFR Stage 2: Mild kidney damage GFR 60-89 Stage 3: Moderate kidney damage GFR 30-59 Stage 4: Severe kidney damage GFR 15-29 Stage 5: Severe kidney damage GFR <15 ESRD - chronic treatment by dialysis or transplant Performed By: #### C P, CDP #### [facility] [address] [place], [place] [address] Dragline Mechanic: Farhad Turner MD Urea nitrogen [Mass/Vol] 6 mg/dL Low 8-23 [facility] Comment on above: Performed By: #### C P, CDP #### [facility] [address] [place], [place] [address] Dragline Mechanic: Farhad Turner MD Comprehensive Metabolic Pane [facility] 04-15-2020 Albumin [Mass/Vol] 2 g/dL Low 3.5 - 5.2 g/dL [place] Albumin/Globulin [Mass ratio] 0.5 {ratio} Low [place] ALP [Catalytic activity/Vol] 74 U/L 40 - 129 U/L [place] ALT [Catalytic activity/Vol] 6 U/L 5 - 41 U/L [place] Anion gap [Moles/Vol] 5 mmol/L Low 9 - 17 mmol/L [place] AST [Catalytic activity/Vol] 12 U/L <40 [place] Bilirubin Ql (U) 0.32 mg/dL 0.3 - 1.2 mg/dL [place] Bun/Cre Ratio 21 High [place] Calcium [Mass/Vol] 9.4 mg/dL 8.6 - 10. 4 mg/dL [place] Chloride [Moles/Vol] 101 mmol/L 98 - 10 7 mmol/L [place] CO2 [Moles/Vol] 30 mmol/L 20 - 31 mmol/L [place] Creatinine [Mass/Vol] 0.28 mg/dL Low 0.7 - 1.2 mg/dL [place] GFR >60 >60 mL/min [place] GFR Non- >60 >60 mL/min [place] Glucose [Mass/Vol] 120 mg/dL High 70 - 99 mg/dL [place] Interpretation and review of laboratory results Abnormal [place] Potassium [Moles/Vol] 3.3 mmol/L Low 3.7 - 5.3 mmol/L [place] Protein [Mass/Vol] 5.9 g/dL Low 6.4 - 8.3 g/dL [place] Sodium [Moles/Vol] 136 mmol/L 135 - 144 mmol/L [place] Urea nitrogen [Mass/Vol] 6 mg/dL Low 8 - 23 mg/dL [place] Metabolic Panelon 04-15-2020 GFR/1.73 sq M predicted among non-blacks MDRD (S/P/Bld) [Vol rate/Area] [place] Comment on above: Stage 1: Some [...] body mass. Additional eGFR calculator available at: http://www.VivoText/multiple_crcl_2012.htm Transfer Inon 04-13-2020 Transfer In [id number]:[address] [facility] CBCon 03-16-2020 Erythrocyte distribution width (RBC) [Ratio] 17.3 % High 11.8 - 14.4 % [place] Hematocrit (Bld) [Volume fraction] 30.0 % Low 40.7 - 50.3 % [place] Hemoglobin (Bld) [Mass/Vol] 8.7 g/dL Low 13 - 17 g/dL [place] Interpretation and review of laboratory results Abnormal [place] MCH (RBC) [Entitic mass] 25.1 pg Low 25.2 - 33.5 pg [place] MCHC (RBC) [Mass/Vol] 29.0 g/dL 28.4 - 34.8 g/dL [place] MCV (RBC) [Entitic vol] 86.5 fL 82.6 - 102.9 fL [place] Platelet mean volume (Bld) [Entitic vol] 8.8 fL 8.1 - 13.5 fL [place] Platelets (Bld) [#/Vol] 471 10*3/uL [place] RBC (Bld) [#/Vol] 3.47 10*6/uL Low 4.21 - 5.7 7 m/uL [place] WBC (Bld) [#/Vol] 14.6 10*3/uL [place] WBC (Bld) [#/Vol] 0.0 10*3/uL 0.0 per 10 0 WBC [place] Comprehensive Metabolic Pane [facility] 03-16-2020 Albumin [Mass/Vol] 2.1 g/dL Low 3.5 - 5.2 g/dL [place] Albumin/Globulin [Mass ratio] 0.5 {ratio} Low [place] ALP [Catalytic activity/Vol] 54 U/L 40 - 129 U/L [place] ALT [Catalytic activity/Vol] U/L Low 5 - 41 U/L [place] Anion gap [Moles/Vol] 9 mmol/L 9 - 17 mmol/L [place] AST [Catalytic activity/Vol] 9 U/L <40 [place] Bilirubin Ql (U) 0.18 mg/dL Low 0.3 - 1.2 mg/dL [place] Bun/Cre Ratio 18 [place] Calcium [Mass/Vol] 9.7 mg/dL 8.6 - 10. 4 mg/dL [place] Chloride [Moles/Vol] 99 mmol/L 98 - 10 7 mmol/L [place] CO2 [Moles/Vol] 27 mmol/L 20 - 31 mmol/L [place] Creatinine [Mass/Vol] 0.39 mg/dL Low 0.7 - 1.2 mg/dL [place] GFR >60 >60 mL/min [place] GFR Non- >60 >60 mL/min [place] Glucose [Mass/Vol] 98 mg/dL 70 - 99 mg/dL [place] Interpretation and review of laboratory results Abnormal [place] Potassium [Moles/Vol] 3.6 mmol/L Low 3.7 - 5.3 mmol/L [place] Protein [Mass/Vol] 6.3 g/dL Low 6.4 - 8.3 g/dL [place] Sodium [Moles/Vol] 135 mmol/L 135 - 144 mmol/L [place] Urea nitrogen [Mass/Vol] 7 mg/dL Low 8 - 23 mg/dL [place] Metabolic Panelon 03-16-2020 GFR/1.73 sq M predicted among non-blacks MDRD (S/P/Bld) [Vol rate/Area] [facility] [place] Comment on above: Average GFR for 60-6 9 years old: 85 mL/min/1.73sq m Chronic Kidney Disease: <60 mL/min/1.73sq m Kidney failure: <15 mL/min/1.73sq m eGFR calculated using average adult body mass. Additional eGFR calculator available at: http://www.VivoText/multiple_crcl_2012.htm Stage 1: Some kidney damage normal GFR Stage 2: Mild kidney damage GFR 60-89 Stage 3: Moderate kidney damage GFR 30-59 Stage 4: Severe kidney damage GFR 15-29 Stage 5: Severe kidney damage GFR <15 ESRD - chronic treatment by dialysis or transplant Transfer Inon 03-13-2020 Transfer In [id number]:12 7 [facility] Lab Reportson 03-06-2020 Lab Reports [id number]:12 7 [facility] Reminderson 03-06-2020 Reminders - From: Rain Cade To: [place] - Clinical; Sent: 03/02/2020 10:47:20 EDT Show up: 03/04/2020 10:47:00 EDT Subject: Urine C&S Due Date/Time: 03/06/2020 10:47:00 EDT Reminder/Recall Urine C&S done [facility] Please review Urine C&S and call pt with results.LG From: Rain Cade ([facility] - Clinical) To: GERI GODWIN, Billy Jordan; Sent: 03/06/2020 08:48:22 EDT Show up: 03/06/2020 08:48:00 EDT Subject: RE: Urine C&S Dr. Nevarez reviewed. levaquin 500mg qd #14 proposed. pts was notified.LG [facility] SURGICAL PATHOLOGYon 020 SURGICAL PATHOLOGY ADDENDUM PRESENT Specimen #: [id number] Submitting Physician: JASON MUÑOZ M.D. FINAL DIAGNOSIS [facility], [place], [place]; [phone] (11/13/2019) Duodenum, postbulbar, biopsy (A1, stains) - Atypical glandular proliferation, suspicious for adenocarcinoma, in a background of ulceration, fibrosis, and necrosis. - Fungal elements present. COMMENT Thank you for allowing us the opportunity to review this case in consultation representing the duodenal postbulbar biopsy from Trinity Perry, a 69-year-old man who presents with abdominal [...] to contact the GI Consultation Service at [phone] with questions or if additional follow up information becomes available. This case was reviewed in conjunction with the GI pathology fellow, Rajan Bain M.D., Ph.D. /HYL//11-19-2019 Walter De Luna M.D., Ph.D. (Electronic Signature) SPECIMEN SUBMITTED A: 6 SLIDES [id number] ADDENDUM Date Ordered: 11/19/2019 Date Reported: 11/19/2019 This case has also been reviewed in consultation with Dr. Halie Cartwright, who concurs with the diagnosis. Addendum Pathologist: Walter De Luna M.D., Ph.D. Electronic Signature CLINICAL DATA Abdominal pain. Patient ID #: Date of Report: 11/19/2019 Date of Procedure: 11/18/2019 Date of Receipt: 11/18/2019 Submitted by: JASON MUÑOZ M.D. Location: Diagnostic interpretation performed at [facility], [address] [place] [address]. CLIA Number: [id number] Normal [facility] Comment on above: Performed By: #### S #### See report for performing lab information. Vital Signs Date Time Vital Sign Value Performing Clinician Facility 03-07-2024 10:56-0400 Body temperature 98.1 [degF] [employer] Work Phone: [facility] 03-07-2024 10:56-0400 Diastolic blood pressure 70 mm[Hg] [employer] Work Phone: [facility] 03-07-2024 10:56-0400 Heart rate 88 /min [employer] Work Phone: [facility] 03-07-2024 10:56-0400 Respiratory rate 18 /min [employer] Work Phone: [facility] 03-07-2024 10:56-0400 SaO2% (BldA) [Mass fraction] 100 % [facility] [place] Work Phone: [facility] 03-07-2024 10:56-0400 Systolic blood pressure 107 mm[Hg] Chair Danny Work Phone: [facility] 03-05-2024 08:42-0400 Body height 169.7 cm Vivek Smith MD Work Phone: [facility] 03-05-2024 08:42-0400 Body mass index (BMI) [Ratio] 26.29 kg/m2 Vivek Smith MD Work Phone: [facility] 03-05-2024 08:42-0400 Body temperature 97.11 [degF] Vivek Smith MD Work Phone: [facility] 03-05-2024 08:42-0400 Body weight 75.7 kg Vivek Smith MD Work Phone: [facility] 03-05-2024 08:42-0400 Diastolic blood pressure 69 mm[Hg] Vivek Smith MD Work Phone: [facility] 03-05-2024 08:42-0400 Heart rate 89 /min Vivek Smith MD Work Phone: [facility] 03-05-2024 08:42-0400 Respiratory rate 16 /min Vivek Smith MD Work Phone: [facility] 03-05-2024 08:42-0400 SaO2% (BldA) [Mass fraction] 99 % Vivek Smith MD Work Phone: [facility] 03-05-2024 08:42-0400 Systolic blood pressure 112 mm[Hg] Vivek Smith MD Work Phone: [facility] 02-14-2024 10:27-0400 Diastolic blood pressure 81 mm[Hg] Chair [place] Work Phone: [facility] 02-14-2024 10:27-0400 Heart rate 79 /min Chair Danny Work Phone: [facility] 02-14-2024 10:27-0400 Respiratory rate 16 /min Chair Danny Work Phone: [facility] 02-14-2024 10:27-0400 SaO2% (BldA) [Mass fraction] 97 % Chair Danny Work Phone: [facility] 02-14-2024 10:27-0400 Systolic blood pressure 125 mm[Hg] Chair Danny Work Phone: [facility] 02-12-2024 08:47-0400 Body mass index (BMI) [Ratio] 26.04 kg/m2 Vivek Smith MD Work Phone: [facility] 02-12-2024 08:47-0400 Body temperature 97.59 [degF] Vivek Smith MD Work Phone: [facility] 02-12-2024 08:47-0400 Body weight 75 kg Vivek Smith MD Work Phone: [facility] 02-12-2024 08:47-0400 Diastolic blood pressure 76 mm[Hg] Vivek Smith MD Work Phone: [facility] 02-12-2024 08:47-0400 Heart rate 82 /min Vivek Smith MD Work Phone: [facility] 02-12-2024 08:47-0400 Respiratory rate 18 /min Vivek Smith MD Work Phone: [facility] 02-12-2024 08:47-0400 SaO2% (BldA) [Mass fraction] 99 % Vivek Smith MD Work Phone: [facility] 02-12-2024 08:47-0400 Systolic blood pressure 117 mm[Hg] Vivek Smith MD Work Phone: [facility] 01-23-2024 09:29-0400 Body height 169.7 cm Greta Wetzel PA-C Work Phone: [facility] 01-23-2024 09:29-0400 Body mass index (BMI) [Ratio] 26.15 kg/m2 Greta Rashard PA-C Work Phone: [facility] 01-23-2024 09:29-0400 Body temperature 97.11 [degF] Greta Rashard PA-C Work Phone: [facility] 01-23-2024 09:29-0400 Body weight 75.3 kg Greta Rashard PA-C Work Phone: [facility] 01-23-2024 09:29-0400 Diastolic blood pressure 81 mm[Hg] Greta Rashard PA-C Work Phone: [facility] 01-23-2024 09:29-0400 Heart rate 82 /min Greta Rashard PA-C Work Phone: [facility] 01-23-2024 09:29-0400 Respiratory rate 16 /min Greta Rashard PA-C Work Phone: [facility] 01-23-2024 09:29-0400 SaO2% (BldA) [Mass fraction] 100 % Greta Rashard PA-C Work Phone: [facility] 01-23-2024 09:29-0400 Systolic blood pressure 124 mm[Hg] Greta Rashard PA-C Work Phone: [facility] 01-05-2024 11:02-0400 Body temperature 97.7 [degF] Chair Danny Work Phone: [facility] 01-05-2024 11:02-0400 Diastolic blood pressure 73 mm[Hg] Chair [place] Work Phone: [facility] 01-05-2024 11:02-0400 Heart rate 71 /min Chair [place] Work Phone: [facility] 01-05-2024 11:02-0400 Respiratory rate 18 /min Chair Danny Work Phone: [facility] 01-05-2024 11:02-0400 SaO2% (BldA) [Mass fraction] 99 % Chair [place] Work Phone: [facility] 01-05-2024 11:02-0400 Systolic blood pressure 108 mm[Hg] Chair [place] Work Phone: [facility] 01-03-2024 09:37-0400 Body height 169.7 cm Greta Rashard PA-C Work Phone: [facility] 01-03-2024 09:37-0400 Body mass index (BMI) [Ratio] 26.18 kg/m2 Greta Rashard PA-C Work Phone: [facility] 01-03-2024 09:37-0400 Body temperature 97.39 [degF] Greta Rashard PA-C Work Phone: [facility] 01-03-2024 09:37-0400 Body weight 75.4 kg Greta Rashard PA-C Work Phone: [facility] 01-03-2024 09:37-0400 Diastolic blood pressure 84 mm[Hg] Greta Rashard PA-C Work Phone: [facility] 01-03-2024 09:37-0400 Heart rate 75 /min Greta Rashard PA-C Work Phone: [facility] 01-03-2024 09:37-0400 Respiratory rate 16 /min Greta Rashard PA-C Work Phone: [facility] 01-03-2024 09:37-0400 SaO2% (BldA) [Mass fraction] 99 % Greta Rashard PA-C Work Phone: [facility] 01-03-2024 09:37-0400 Systolic blood pressure 128 mm[Hg] Greta Rashard PA-C Work Phone: [facility] 12-13-2023 12:05-0400 Body temperature 98.2 [degF] Chair Danny Work Phone: [facility] 12-13-2023 12:05-0400 Diastolic blood pressure 78 mm[Hg] Chair Danny Work Phone: [facility] 12-13-2023 12:05-0400 Heart rate 72 /min Chair Danny Work Phone: [facility] 12-13-2023 12:05-0400 Respiratory rate 18 /min Chair Danny Work Phone: [facility] 12-13-2023 12:05-0400 SaO2% (BldA) [Mass fraction] 98 % Chair Danny Work Phone: [facility] 12-13-2023 12:05-0400 Systolic blood pressure 110 mm[Hg] Chair Danny Work Phone: [facility] 12-11-2023 10:04-0400 Body mass index (BMI) [Ratio] 25.87 kg/m2 Vivek Smith MD Work Phone: [facility] 12-11-2023 10:04-0400 Body temperature 97.9 [degF] Vivek Smith MD Work Phone: [facility] 12-11-2023 10:04-0400 Body weight 74.5 kg Vivek Smith MD Work Phone: [facility] 12-11-2023 10:04-0400 Diastolic blood pressure 69 mm[Hg] Vivek Smith MD Work Phone: [facility] 12-11-2023 10:04-0400 Heart rate 84 /min Vivek Smith MD Work Phone: [facility] 12-11-2023 10:04-0400 Respiratory rate 16 /min Vivek Smith MD Work Phone: [facility] 12-11-2023 10:04-0400 SaO2% (BldA) [Mass fraction] 99 % Vivek Smith MD Work Phone: [facility] 12-11-2023 10:04-0400 Systolic blood pressure 107 mm[Hg] Vivek Smith MD Work Phone: [facility] 11-22-2023 10:29-0400 Body temperature 98.2 [degF] Chair [place] Work Phone: [facility] 11-22-2023 10:29-0400 Diastolic blood pressure 72 mm[Hg] Chair Danny Work Phone: [facility] 11-22-2023 10:29-0400 Heart rate 75 /min Chair [place] Work Phone: [facility] 11-22-2023 10:29-0400 Respiratory rate 18 /min Chair [place] Work Phone: [facility] 11-22-2023 10:29-0400 SaO2% (BldA) [Mass fraction] 98 % Chair [place] Work Phone: [facility] 11-22-2023 10:29-0400 Systolic blood pressure 115 mm[Hg] Chair Danny Work Phone: [facility] 11-20-2023 08:14-0400 Body height 169.7 cm Vivek Smith MD Work Phone: [facility] 11-20-2023 08:14-0400 Body mass index (BMI) [Ratio] 25.55 kg/m2 Vivek Smith MD Work Phone: [facility] 11-20-2023 08:14-0400 Body temperature 97.3 [degF] Vivek Smith MD Work Phone: [facility] 11-20-2023 08:14-0400 Body weight 73.57 kg Vivek Smith MD Work Phone: [facility] 11-20-2023 08:14-0400 Diastolic blood pressure 77 mm[Hg] Vivek Smith MD Work Phone: [facility] 11-20-2023 08:14-0400 Heart rate 77 /min Vivek Smith MD Work Phone: [facility] 11-20-2023 08:14-0400 Respiratory rate 16 /min Vivek Smith MD Work Phone: [facility] 11-20-2023 08:14-0400 SaO2% (BldA) [Mass fraction] 99 % Vivek Smith MD Work Phone: [facility] 11-20-2023 08:14-0400 Systolic blood pressure 134 mm[Hg] Vivek Smith MD Work Phone: [facility] 11-02-2023 12:34-0400 Body temperature 97.59 [degF] Chair Danny Work Phone: [facility] 11-02-2023 12:34-0400 Diastolic blood pressure 61 mm[Hg] Chair Danny Work Phone: [facility] 11-02-2023 12:34-0400 Heart rate 86 /min Chair Danny Work Phone: [facility] 11-02-2023 12:34-0400 Respiratory rate 18 /min Chair [place] Work Phone: [facility] 11-02-2023 12:34-0400 SaO2% (BldA) [Mass fraction] 98 % Chair [place] Work Phone: [facility] 11-02-2023 12:34-0400 Systolic blood pressure 104 mm[Hg] Chair Danny Work Phone: [facility] 10-31-2023 10:34-0400 Body height 169.7 cm Grace Bess MD Work Phone: [facility] 10-31-2023 10:34-0400 Body mass index (BMI) [Ratio] 24.38 kg/m2 Grace Bess MD Work Phone: [facility] 10-31-2023 10:34-0400 Body temperature 97.2 [degF] Grace Bess MD Work Phone: [facility] 10-31-2023 10:34-0400 Body weight 70.2 kg Grace Bess MD Work Phone: [facility] 10-31-2023 10:34-0400 Diastolic blood pressure 81 mm[Hg] Grace Bess MD Work Phone: [facility] 10-31-2023 10:34-0400 Heart rate 75 /min Grace Bess MD Work Phone: [facility] 10-31-2023 10:34-0400 Respiratory rate 16 /min Grace Bess MD Work Phone: [facility] 10-31-2023 10:34-0400 SaO2% (BldA) [Mass fraction] 100 % Grace Bess MD Work Phone: [facility] 10-31-2023 10:34-0400 Systolic blood pressure 118 mm[Hg] Grace Bess MD Work Phone: [facility] 10-13-2023 11:35-0400 Body temperature 97.59 [degF] Chair [place] Work Phone: [facility] 10-13-2023 11:35-0400 Diastolic blood pressure 71 mm[Hg] Chair [place] Work Phone: [facility] 10-13-2023 11:35-0400 Heart rate 83 /min Chair [place] Work Phone: [facility] 10-13-2023 11:35-0400 Respiratory rate 16 /min Chair [place] Work Phone: [facility] 10-13-2023 11:35-0400 SaO2% (BldA) [Mass fraction] 100 % Chair [place] Work Phone: [facility] 10-13-2023 11:35-0400 Systolic blood pressure 107 mm[Hg] Chair [place] Work Phone: [facility] 10-11-2023 10:02-0400 Diastolic blood pressure 67 mm[Hg] Chair Danny Work Phone: [facility] Comment on above: Rechecked in tx room 10-11-2023 10:02-0400 Systolic blood pressure 100 mm[Hg] Chair Danny Work Phone: [facility] Comment on above: Rechecked in tx room 10-11-2023 09:27-0400 Body height 169.7 cm Greta Rashard PA-C Work Phone: [facility] 10-11-2023 09:27-0400 Body mass index (BMI) [Ratio] 24.48 kg/m2 Greta Rashard PA-C Work Phone: [facility] 10-11-2023 09:27-0400 Body temperature 98.01 [degF] Greta Rashard PA-C Work Phone: [facility] 10-11-2023 09:27-0400 Body weight 70.5 kg Greta Rashard PA-C Work Phone: [facility] 10-11-2023 09:27-0400 Diastolic blood pressure 56 mm[Hg] Greta Rashard PA-C Work Phone: [facility] 10-11-2023 09:27-0400 Heart rate 87 /min Greta Rashard PA-C Work Phone: [facility] 10-11-2023 09:27-0400 Respiratory rate 16 /min Greta Rashard PA-C Work Phone: [facility] 10-11-2023 09:27-0400 SaO2% (BldA) [Mass fraction] 100 % Greta Rashard PA-C Work Phone: [facility] 10-11-2023 09:27-0400 Systolic blood pressure 85 mm[Hg] Greta Rashard PA-C Work Phone: [facility] 10-03-2023 11:15-0400 Body height 169.7 cm Greta Rashard PA-C Work Phone: [facility] 10-03-2023 11:15-0400 Body mass index (BMI) [Ratio] 25.56 kg/m2 Greta Rashard PA-C Work Phone: [facility] 10-03-2023 11:15-0400 Body temperature 97.5 [degF] Greta Rashard PA-C Work Phone: [facility] 10-03-2023 11:15-0400 Body weight 73.6 kg Greta Rashard PA-C Work Phone: [facility] 10-03-2023 11:15-0400 Diastolic blood pressure 53 mm[Hg] Greta Rashard PA-C Work Phone: [facility] 10-03-2023 11:15-0400 Heart rate 81 /min Greta Rashard PA-C Work Phone: [facility] 10-03-2023 11:15-0400 Respiratory rate 16 /min Greta Rashard PA-C Work Phone: [facility] 10-03-2023 11:15-0400 SaO2% (BldA) [Mass fraction] 98 % Greta Rashard PA-C Work Phone: [facility] 10-03-2023 11:15-0400 Systolic blood pressure 83 mm[Hg] Greta Rashard PA-C Work Phone: [facility] 09-15-2023 13:05-0400 Body temperature 97.9 [degF] Chair [place] Work Phone: [facility] 09-15-2023 13:05-0400 Diastolic blood pressure 68 mm[Hg] Chair Danny Work Phone: [facility] 09-15-2023 13:05-0400 Heart rate 77 /min Chair Danny Work Phone: [facility] 09-15-2023 13:05-0400 Respiratory rate 18 /min Chair [place] Work Phone: [facility] 09-15-2023 13:05-0400 SaO2% (BldA) [Mass fraction] 98 % Chair Danny Work Phone: [facility] 09-15-2023 13:05-0400 Systolic blood pressure 114 mm[Hg] Chair Danny Work Phone: [facility] 09-13-2023 11:29-0400 Body height 169.7 cm Yordy Moncada APRN.BUSINESS PROGRAMMER Work Phone: [facility] 09-13-2023 11:29-0400 Body mass index (BMI) [Ratio] 24.76 kg/m2 Yordy Moncada APRN.BUSINESS PROGRAMMER Work Phone: [facility] 09-13-2023 11:29-0400 Body temperature 97.59 [degF] Yordy Moncada APRN.BUSINESS PROGRAMMER Work Phone: [facility] 09-13-2023 11:29-0400 Body weight 71.3 kg Yordy Moncada APRN.BUSINESS PROGRAMMER Work Phone: [facility] 09-13-2023 11:29-0400 Diastolic blood pressure 63 mm[Hg] Yordy Moncada APRN.BUSINESS PROGRAMMER Work Phone: [facility] 09-13-2023 11:29-0400 Heart rate 75 /min Yordy Moncada APRN.BUSINESS PROGRAMMER Work Phone: [facility] 09-13-2023 11:29-0400 Respiratory rate 16 /min Yordy Moncada APRN.BUSINESS PROGRAMMER Work Phone: [facility] 09-13-2023 11:29-0400 SaO2% (BldA) [Mass fraction] 99 % Yordy Moncada APRN.BUSINESS PROGRAMMER Work Phone: [facility] 09-13-2023 11:29-0400 Systolic blood pressure 106 mm[Hg] Yordy Moncada APRN.BUSINESS PROGRAMMER Work Phone: [facility] 08-23-2023 10:36-0400 Body height 169.7 cm Grace Bess MD Work Phone: [facility] 08-23-2023 10:36-0400 Body temperature 97.59 [degF] Grace Bess MD Work Phone: [facility] 08-23-2023 10:36-0400 Body weight 72.5 kg Grace Bess MD Work Phone: [facility] 08-23-2023 10:36-0400 Diastolic blood pressure 72 mm[Hg] Grace Bess MD Work Phone: [facility] 08-23-2023 10:36-0400 Heart rate 88 /min Grace Bess MD Work Phone: [facility] 08-23-2023 10:36-0400 Respiratory rate 16 /min Grace Bess MD Work Phone: [facility] 08-23-2023 10:36-0400 SaO2% (BldA) [Mass fraction] 98 % Grace Bess MD Work Phone: [facility] 08-23-2023 10:36-0400 Systolic blood pressure 108 mm[Hg] Grace Bess MD Work Phone: [facility] 08-04-2023 12:40-0400 Body temperature 97.5 [degF] Chair Danny Work Phone: [facility] 08-04-2023 12:40-0400 Diastolic blood pressure 64 mm[Hg] Chair [place] Work Phone: [facility] 08-04-2023 12:40-0400 Heart rate 82 /min Chair Danny Work Phone: [facility] 08-04-2023 12:40-0400 Respiratory rate 16 /min Chair Danny Work Phone: [facility] 08-04-2023 12:40-0400 SaO2% (BldA) [Mass fraction] 98 % Chair [place] Work Phone: [facility] 08-04-2023 12:40-0400 Systolic blood pressure 95 mm[Hg] Chair Danny Work Phone: [facility] 08-02-2023 10:32-0400 Body height 169.7 cm Grace Bess MD Work Phone: [facility] 08-02-2023 10:32-0400 Body temperature 97.5 [degF] Grace Bess MD Work Phone: [facility] 08-02-2023 10:32-0400 Body weight 71.2 kg Grace Bess MD Work Phone: [facility] 08-02-2023 10:32-0400 Diastolic blood pressure 68 mm[Hg] Grace Bess MD Work Phone: [facility] 08-02-2023 10:32-0400 Heart rate 85 /min Grace Bess MD Work Phone: [facility] 08-02-2023 10:32-0400 Respiratory rate 16 /min Grace Bess MD Work Phone: [facility] 08-02-2023 10:32-0400 SaO2% (BldA) [Mass fraction] 100 % Grace Bess MD Work Phone: [facility] 08-02-2023 10:32-0400 Systolic blood pressure 96 mm[Hg] Grace Bess MD Work Phone: [facility] 07-21-2023 11:57-0500 Body temperature 98.1 [degF] Chair [place] Work Phone: [facility] 07-21-2023 11:57-0500 Diastolic blood pressure 65 mm[Hg] Chair Danny Work Phone: [facility] 07-21-2023 11:57-0500 Heart rate 78 /min Chair [place] Work Phone: [facility] 07-21-2023 11:57-0500 Respiratory rate 18 /min Chair [place] Work Phone: [facility] 07-21-2023 11:57-0500 SaO2% (BldA) [Mass fraction] 100 % Chair [place] Work Phone: [facility] 07-21-2023 11:57-0500 Systolic blood pressure 96 mm[Hg] Chair [place] Work Phone: [facility] 07-19-2023 10:14-0500 Body height 169.7 cm Yordy Moncada APRN.BUSINESS PROGRAMMER Work Phone: [facility] 07-19-2023 10:14-0500 Body temperature 97.59 [degF] Yordy Moncada APRN.BUSINESS PROGRAMMER Work Phone: [facility] 07-19-2023 10:14-0500 Body weight 71.5 kg Yordy Moncada APRN.BUSINESS PROGRAMMER Work Phone: [facility] 07-19-2023 10:14-0500 Diastolic blood pressure 58 mm[Hg] Yordy Moncada APRN.BUSINESS PROGRAMMER Work Phone: [facility] 07-19-2023 10:14-0500 Heart rate 67 /min Yordy Moncada APRN.BUSINESS PROGRAMMER Work Phone: [facility] 07-19-2023 10:14-0500 Respiratory rate 16 /min Yordy Moncada APRN.BUSINESS PROGRAMMER Work Phone: [facility] 07-19-2023 10:14-0500 SaO2% (BldA) [Mass fraction] 99 % Yordy Moncada APRN.BUSINESS PROGRAMMER Work Phone: [facility] 07-19-2023 10:14-0500 Systolic blood pressure 100 mm[Hg] Yordy Moncada APRN.BUSINESS PROGRAMMER Work Phone: [facility] 07-07-2023 12:40-0500 Body temperature 97.7 [degF] Chair Danny Work Phone: [facility] 07-07-2023 12:40-0500 Diastolic blood pressure 69 mm[Hg] Chair [place] Work Phone: [facility] 07-07-2023 12:40-0500 Heart rate 75 /min Chair [place] Work Phone: [facility] 07-07-2023 12:40-0500 Respiratory rate 18 /min Chair [place] Work Phone: [facility] 07-07-2023 12:40-0500 SaO2% (BldA) [Mass fraction] 98 % Chair [place] Work Phone: [facility] 07-07-2023 12:40-0500 Systolic blood pressure 103 mm[Hg] Chair Danny Work Phone: [facility] 07-05-2023 10:46-0500 Body height 169.7 cm Yordy Moncada APRN.BUSINESS PROGRAMMER Work Phone: [facility] 07-05-2023 10:46-0500 Body temperature 97 [degF] Yordy Moncada APRN.BUSINESS PROGRAMMER Work Phone: [facility] 07-05-2023 10:46-0500 Body weight 72.3 kg Yordy Moncada APRN.BUSINESS PROGRAMMER Work Phone: [facility] 07-05-2023 10:46-0500 Diastolic blood pressure 68 mm[Hg] Yordy Moncada APRN.BUSINESS PROGRAMMER Work Phone: [facility] 07-05-2023 10:46-0500 Heart rate 92 /min Yordy Moncada APRN.BUSINESS PROGRAMMER Work Phone: [facility] 07-05-2023 10:46-0500 Respiratory rate 16 /min Yordy Moncada APRN.BUSINESS PROGRAMMER Work Phone: [facility] 07-05-2023 10:46-0500 SaO2% (BldA) [Mass fraction] 97 % Yordy Moncada APRN.BUSINESS PROGRAMMER Work Phone: [facility] 07-05-2023 10:46-0500 Systolic blood pressure 96 mm[Hg] Yordy Moncada APRN.BUSINESS PROGRAMMER Work Phone: [facility] 06-23-2023 10:28-0500 Body temperature 97.7 [degF] Chair [place] Work Phone: [facility] 06-23-2023 10:28-0500 Diastolic blood pressure 76 mm[Hg] Chair [place] Work Phone: [facility] 06-23-2023 10:28-0500 Heart rate 83 /min Chair [place] Work Phone: [facility] 06-23-2023 10:28-0500 Respiratory rate 16 /min Chair Danny Work Phone: [facility] 06-23-2023 10:28-0500 SaO2% (BldA) [Mass fraction] 100 % Chair [place] Work Phone: [facility] 06-23-2023 10:28-0500 Systolic blood pressure 117 mm[Hg] Chair Danny Work Phone: [facility] 05-05-2023 12:59-0500 Body height 171.4 cm Grace Bess MD Work Phone: [facility] 05-05-2023 12:59-0500 Body temperature 97 [degF] Grace Bess MD Work Phone: [facility] 05-05-2023 12:59-0500 Body weight 73.9 kg Grace Bess MD Work Phone: [facility] 05-05-2023 12:59-0500 Diastolic blood pressure 80 mm[Hg] Grace Bess MD Work Phone: [facility] 05-05-2023 12:59-0500 Heart rate 90 /min Grace Bess MD Work Phone: [facility] 05-05-2023 12:59-0500 Respiratory rate 20 /min Grace Bess MD Work Phone: [facility] 05-05-2023 12:59-0500 SaO2% (BldA) [Mass fraction] 100 % Grace Bess MD Work Phone: [facility] 05-05-2023 12:59-0500 Systolic blood pressure 137 mm[Hg] Grace Bess MD Work Phone: [facility] 04-05-2023 13:49-0500 Body height 171.4 cm Yordy Moncada [employer]ER.BUSINESS PROGRAMMER Work Phone: [facility] 04-05-2023 13:49-0500 Body temperature 97.59 [degF] Yordy Moncada SPIRAL TUBE WINDER.BUSINESS PROGRAMMER Work Phone: [facility] 04-05-2023 13:49-0500 Body weight 77.84 kg Yordy Moncada SPIRAL TUBE WINDER.BUSINESS PROGRAMMER Work Phone: [facility] 04-05-2023 13:49-0500 Diastolic blood pressure 69 mm[Hg] Yordy Moncada SPIRAL TUBE WINDER.BUSINESS PROGRAMMER Work Phone: [facility] 04-05-2023 13:49-0500 Heart rate 88 /min Yordy Moncada SPIRAL TUBE WINDER.BUSINESS PROGRAMMER Work Phone: [facility] 04-05-2023 13:49-0500 Respiratory rate 16 /min Yordy Moncada SPIRAL TUBE WINDER.BUSINESS PROGRAMMER Work Phone: [facility] 04-05-2023 13:49-0500 SaO2% (BldA) [Mass fraction] 99 % Yordy Moncada SPIRAL TU[employer] WINDER.BUSINESS PROGRAMMER Work Phone: [facility] 04-05-2023 13:49-0500 Systolic blood pressure 100 mm[Hg] Yordy Moncada SPIRAL TUBE WINDER.BUSINESS PROGRAMMER Work Phone: [facility] 03-30-2023 13:19-0500 Diastolic blood pressure 67 mm[Hg] Greta Rashard PA-C Work Phone: [facility] 03-30-2023 13:19-0500 Systolic blood pressure 116 mm[Hg] Greta Rashard PA-C Work Phone: [facility] 03-30-2023 13:15-0500 Body height 171.4 cm Greta Rashard PA-C Work Phone: [facility] 03-30-2023 13:15-0500 Body temperature 97.59 [degF] Greta Rashard PA-C Work Phone: [facility] 03-30-2023 13:15-0500 Body weight 77.2 kg Greta Cardenaser PA-C Work Phone: [facility] 03-30-2023 13:15-0500 Heart rate 90 /min Greta Rashard PA-C Work Phone: [facility] 03-30-2023 13:15-0500 Respiratory rate 16 /min Greta Rashard PA-C Work Phone: [facility] 03-30-2023 13:15-0500 SaO2% (BldA) [Mass fraction] 99 % Greta Cardenaser PA-C Work Phone: [facility] 03-08-2023 13:32-0400 Body height 171.4 cm Grace Bess MD Work Phone: [facility] 03-08-2023 13:32-0400 Body temperature 97.59 [degF] Grcae Bess MD Work Phone: [facility] 03-08-2023 13:32-0400 Body weight 78.02 kg Grace Bess MD Work Phone: [facility] 03-08-2023 13:32-0400 Diastolic blood pressure 71 mm[Hg] Grace Bess MD Work Phone: [facility] 03-08-2023 13:32-0400 Heart rate 90 /min Grace Bess MD Work Phone: [facility] 03-08-2023 13:32-0400 Respiratory rate 16 /min Grace Bess MD Work Phone: [facility] 03-08-2023 13:32-0400 SaO2% (BldA) [Mass fraction] 100 % Grace Bess MD Work Phone: [facility] 03-08-2023 13:32-0400 Systolic blood pressure 104 mm[Hg] Grace Bess MD Work Phone: [facility] 02-08-2023 12:46-0400 Body height 171.4 cm Yordy Moncada SPIRAL [employer] W[employer]ER.BUSINESS PROGRAMMER Work Phone: [facility] 02-08-2023 12:46-0400 Body temperature 97.5 [degF] Yordy Moncada SPIRAL [employer] WINDER.BUSINESS PROGRAMMER Work Phone: [facility] 02-08-2023 12:46-0400 Body weight 81.1 kg Yordy Moncada SPIRAL TU[employer] WINDER.BUSINESS PROGRAMMER Work Phone: [facility] 02-08-2023 12:46-0400 Diastolic blood pressure 63 mm[Hg] Yordy Moncada SPIRAL [employer] W[employer]ER.BUSINESS PROGRAMMER Work Phone: [facility] 02-08-2023 12:46-0400 Heart rate 86 /min Yordy Moncada SPIRAL [employer] WINDER.BUSINESS PROGRAMMER Work Phone: [facility] 02-08-2023 12:46-0400 Respiratory rate 16 /min Yordy Moncada SPIRAL [employer] WINDER.BUSINESS PROGRAMMER Work Phone: [facility] 02-08-2023 12:46-0400 SaO2% (BldA) [Mass fraction] 100 % Yordy Moncada SPIRAL [employer] W[employer]ER.BUSINESS PROGRAMMER Work Phone: [facility] 02-08-2023 12:46-0400 Systolic blood pressure 117 mm[Hg] Yordy Moncada SPIRAL TU[employer] WINDER.BUSINESS PROGRAMMER Work Phone: [facility] 02-01-2023 11:16-0400 Body height 171.4 cm Grace Bess MD Work Phone: [facility] 02-01-2023 11:16-0400 Body temperature 97.3 [degF] Grace Bess MD Work Phone: [facility] 02-01-2023 11:16-0400 Body weight 79.74 kg rGace Bess MD Work Phone: [facility] 02-01-2023 11:16-0400 Diastolic blood pressure 70 mm[Hg] Grace Bess MD Work Phone: [facility] 02-01-2023 11:16-0400 Heart rate 81 /min Grace Bess MD Work Phone: [facility] 02-01-2023 11:16-0400 Respiratory rate 16 /min Grace Bess MD Work Phone: [facility] 02-01-2023 11:16-0400 SaO2% (BldA) [Mass fraction] 99 % Grace Bess MD Work Phone: [facility] 02-01-2023 11:16-0400 Systolic blood pressure 104 mm[Hg] Grace Bess MD Work Phone: [facility] 01-04-2023 13:00-0400 Body height 171.4 cm Grace Bess MD Work Phone: [facility] 01-04-2023 13:00-0400 Body temperature 97.2 [degF] Grace Bess MD Work Phone: [facility] 01-04-2023 13:00-0400 Body weight 82.74 kg Grace Bess MD Work Phone: [facility] 01-04-2023 13:00-0400 Diastolic blood pressure 63 mm[Hg] Grace Bess MD Work Phone: [facility] 01-04-2023 13:00-0400 Heart rate 78 /min Grace Bess MD Work Phone: [facility] 01-04-2023 13:00-0400 Respiratory rate 18 /min Grace Bess MD Work Phone: [facility] 01-04-2023 13:00-0400 SaO2% (BldA) [Mass fraction] 100 % Grace Bess MD Work Phone: [facility] 01-04-2023 13:00-0400 Systolic blood pressure 104 mm[Hg] Grace Bess MD Work Phone: [facility] 12-21-2022 09:40-0400 Body height 171.4 cm Greta Rashard PA-C Work Phone: [facility] 12-21-2022 09:40-0400 Body temperature 97.11 [degF] Greta Rashard PA-C Work Phone: [facility] 12-21-2022 09:40-0400 Body weight 82.64 kg Greta Rashard PA-C Work Phone: [facility] 12-21-2022 09:40-0400 Diastolic blood pressure 68 mm[Hg] Greta Rashard PA-C Work Phone: [facility] 12-21-2022 09:40-0400 Heart rate 94 /min Greta Rashard PA-C Work Phone: [facility] 12-21-2022 09:40-0400 Respiratory rate 20 /min Greta Rashard PA-C Work Phone: [facility] 12-21-2022 09:40-0400 SaO2% (BldA) [Mass fraction] 100 % Greta Rashard PA-C Work Phone: [facility] 12-21-2022 09:40-0400 Systolic blood pressure 103 mm[Hg] Greta Rashard PA-C Work Phone: [facility] 12-15-2022 16:25-0400 Diastolic blood pressure 74 mm[Hg] II Giovanni Salinas Work Phone: [facility] 12-15-2022 16:25-0400 Heart rate 67 /min II Giovanni Salinas Work Phone: [facility] 12-15-2022 16:25-0400 Respiratory rate 18 /min II Giovanni Salinas Work Phone: [facility] 12-15-2022 16:25-0400 SaO2% (BldA) [Mass fraction] 100 % II Giovanni Salinas Work Phone: [facility] 12-15-2022 16:25-0400 Systolic blood pressure 105 mm[Hg] II Giovanni Salinas Work Phone: [facility] 12-15-2022 15:19-0400 Body height 170.18 cm II Giovanni Salinas Work Phone: [facility] 12-15-2022 15:19-0400 Body temperature 97.5 [degF] II Giovanni Salinas Work Phone: [facility] 12-15-2022 15:19-0400 Body weight 85.9 kg II Giovanni Salinas Work Phone: [facility] 12-05-2022 11:14-0400 Body height 171.4 cm Greta Rashard PA-C Work Phone: [facility] 12-05-2022 11:14-0400 Body temperature 97 [degF] Greta Rashard PA-C Work Phone: [facility] 12-05-2022 11:14-0400 Body weight 83.55 kg Greta Rashard PA-C Work Phone: [facility] 12-05-2022 11:14-0400 Diastolic blood pressure 51 mm[Hg] Greta Rashard PA-C Work Phone: [facility] 12-05-2022 11:14-0400 Heart rate 97 /min Greta Rashard PA-C Work Phone: [facility] 12-05-2022 11:14-0400 Respiratory rate 16 /min Greta Rashard PA-C Work Phone: [facility] 12-05-2022 11:14-0400 SaO2% (BldA) [Mass fraction] 100 % Greta Rashard PA-C Work Phone: [facility] 12-05-2022 11:14-0400 Systolic blood pressure 97 mm[Hg] Greta Rashard PA-C Work Phone: [facility] 11-30-2022 10:33-0400 Body height 171.4 cm Grace Bess MD Work Phone: [facility] 11-30-2022 10:33-0400 Body temperature 96.69 [degF] Grace Bess MD Work Phone: [facility] 11-30-2022 10:33-0400 Body weight 83.92 kg Grace Bess MD Work Phone: [facility] 11-30-2022 10:33-0400 Diastolic blood pressure 67 mm[Hg] Grace Bess MD Work Phone: [facility] 11-30-2022 10:33-0400 Heart rate 68 /min Grace Bess MD Work Phone: [facility] 11-30-2022 10:33-0400 Respiratory rate 16 /min Grace Bess MD Work Phone: [facility] 11-30-2022 10:33-0400 SaO2% (BldA) [Mass fraction] 98 % Grace Bess MD Work Phone: [facility] 11-30-2022 10:33-0400 Systolic blood pressure 117 mm[Hg] rGace Bess MD Work Phone: [facility] 11-23-2022 13:45-0400 Body height 169.8 cm Greta Rashard PA-C Work Phone: [facility] 11-23-2022 13:45-0400 Body temperature 97.3 [degF] Greta Rashard PA-C Work Phone: [facility] 11-23-2022 13:45-0400 Body weight 83.64 kg Greta Rashard PA-C Work Phone: [facility] 11-23-2022 13:45-0400 Diastolic blood pressure 64 mm[Hg] Greta Rashard PA-C Work Phone: [facility] 11-23-2022 13:45-0400 Heart rate 92 /min Greta Rashard PA-C Work Phone: [facility] 11-23-2022 13:45-0400 Respiratory rate 16 /min Greta Cardenaser PA-C Work Phone: [facility] 11-23-2022 13:45-0400 SaO2% (BldA) [Mass fraction] 100 % Greta Rashard PA-C Work Phone: [facility] 11-23-2022 13:45-0400 Systolic blood pressure 106 mm[Hg] Greta Rashard PA-C Work Phone: [facility] 11-10-2022 09:41-0400 Body height 169.8 cm Grace Bess MD Work Phone: [facility] 11-10-2022 09:41-0400 Body temperature 97.3 [degF] Grace Bess MD Work Phone: [facility] 11-10-2022 09:41-0400 Body weight 82.64 kg Grace Bess MD Work Phone: [facility] 11-10-2022 09:41-0400 Diastolic blood pressure 77 mm[Hg] Grace Bess MD Work Phone: [facility] 11-10-2022 09:41-0400 Heart rate 80 /min Grace Bess MD Work Phone: [facility] 11-10-2022 09:41-0400 Respiratory rate 16 /min Grace Bess MD Work Phone: [facility] 11-10-2022 09:41-0400 SaO2% (BldA) [Mass fraction] 99 % Grace Bess MD Work Phone: [facility] 11-10-2022 09:41-0400 Systolic blood pressure 110 mm[Hg] Grace Bess MD Work Phone: [facility] 09-29-2022 10:19-0400 Body height 169.8 cm Grace Bess MD Work Phone: [facility] 09-29-2022 10:19-0400 Body temperature 97.59 [degF] Grace Bess MD Work Phone: [facility] 09-29-2022 10:19-0400 Body weight 90.27 kg Grace Bess MD Work Phone: [facility] 09-29-2022 10:19-0400 Diastolic blood pressure 74 mm[Hg] Grace Bess MD Work Phone: [facility] 09-29-2022 10:19-0400 Heart rate 69 /min Grace Bess MD Work Phone: [facility] 09-29-2022 10:19-0400 Respiratory rate 16 /min Grace Bess MD Work Phone: [facility] 09-29-2022 10:19-0400 SaO2% (BldA) [Mass fraction] 97 % Grace Bess MD Work Phone: [facility] 09-29-2022 10:19-0400 Systolic blood pressure 140 mm[Hg] Grace Bess MD Work Phone: [facility] 08-02-2022 10:20-0400 Body height 169.8 cm Grace Bess MD Work Phone: [facility] 08-02-2022 10:20-0400 Body temperature 97.59 [degF] Grace Bess MD Work Phone: [facility] 08-02-2022 10:20-0400 Body weight 90.81 kg Grace Bess MD Work Phone: [facility] 08-02-2022 10:20-0400 Diastolic blood pressure 74 mm[Hg] Grace Bess MD Work Phone: [facility] 08-02-2022 10:20-0400 Heart rate 75 /min Grace Bess MD Work Phone: [facility] 08-02-2022 10:20-0400 Respiratory rate 16 /min Grace Bess MD Work Phone: [facility] 08-02-2022 10:20-0400 SaO2% (BldA) [Mass fraction] 99 % Grace Bess MD Work Phone: [facility] 08-02-2022 10:20-0400 Systolic blood pressure 145 mm[Hg] Grace Bess MD Work Phone: [facility] 06-29-2022 10:37-0500 Body height 169.8 cm Grace Bess MD Work Phone: [facility] 06-29-2022 10:37-0500 Body temperature 97.59 [degF] Grace Bess MD Work Phone: [facility] 06-29-2022 10:37-0500 Body weight 89.45 kg Grace Bess MD Work Phone: [facility] 06-29-2022 10:37-0500 Diastolic blood pressure 77 mm[Hg] Grace Bess MD Work Phone: [facility] 06-29-2022 10:37-0500 Heart rate 81 /min Grace Bess MD Work Phone: [facility] 06-29-2022 10:37-0500 Respiratory rate 18 /min Grace Bess MD Work Phone: [facility] 06-29-2022 10:37-0500 SaO2% (BldA) [Mass fraction] 99 % Grace Bess MD Work Phone: [facility] 06-29-2022 10:37-0500 Systolic blood pressure 137 mm[Hg] Grace Bess MD Work Phone: [facility] 05-11-2022 09:23-0500 Body height 169.8 cm Grace Bess MD Work Phone: [facility] 05-11-2022 09:23-0500 Body temperature 97.5 [degF] Grace Bess MD Work Phone: [facility] 05-11-2022 09:23-0500 Body weight 88.72 kg Grace Bess MD Work Phone: [facility] 05-11-2022 09:23-0500 Diastolic blood pressure 70 mm[Hg] Grace Bess MD Work Phone: [facility] 05-11-2022 09:23-0500 Heart rate 76 /min Grace Bess MD Work Phone: [facility] 05-11-2022 09:23-0500 Respiratory rate 16 /min Grace Bess MD Work Phone: [facility] 05-11-2022 09:23-0500 SaO2% (BldA) [Mass fraction] 98 % Grace Bess MD Work Phone: [facility] 05-11-2022 09:23-0500 Systolic blood pressure 130 mm[Hg] Grace Bess MD Work Phone: [facility] 04-27-2022 08:50-0500 Body height 169.8 cm Yordy Moncada APRN.BUSINESS PROGRAMMER Work Phone: [facility] 04-27-2022 08:50-0500 Body temperature 97.39 [degF] Yordy Moncada APRN.BUSINESS PROGRAMMER Work Phone: [facility] 04-27-2022 08:50-0500 Body weight 87.64 kg Yordy Moncada APRN.BUSINESS PROGRAMMER Work Phone: [facility] 04-27-2022 08:50-0500 Diastolic blood pressure 68 mm[Hg] Yordy Moncada APRN.BUSINESS PROGRAMMER Work Phone: [facility] 04-27-2022 08:50-0500 Heart rate 79 /min Yordy Moncada APRN.BUSINESS PROGRAMMER Work Phone: [facility] 04-27-2022 08:50-0500 Respiratory rate 16 /min Yordy Moncada APRN.BUSINESS PROGRAMMER Work Phone: [facility] 04-27-2022 08:50-0500 SaO2% (BldA) [Mass fraction] 99 % Yordy Moncada APRN.BUSINESS PROGRAMMER Work Phone: [facility] 04-27-2022 08:50-0500 Systolic blood pressure 136 mm[Hg] Yordy Moncada APRN.BUSINESS PROGRAMMER Work Phone: [facility] 04-06-2022 11:57-0500 Body height 169.8 cm Greta Rashard PA-C Work Phone: [facility] 04-06-2022 11:57-0500 Body temperature 97.3 [degF] Greta Rashard PA-C Work Phone: [facility] 04-06-2022 11:57-0500 Body weight 88.81 kg Greta Rashard PA-C Work Phone: [facility] 04-06-2022 11:57-0500 Diastolic blood pressure 73 mm[Hg] Greta Rashard PA-C Work Phone: [facility] 04-06-2022 11:57-0500 Heart rate 76 /min Greta Rashard PA-C Work Phone: [facility] 04-06-2022 11:57-0500 Respiratory rate 16 /min Greta Rashard PA-C Work Phone: [facility] 04-06-2022 11:57-0500 SaO2% (BldA) [Mass fraction] 100 % Greta Rashard PA-C Work Phone: [facility] 04-06-2022 11:57-0500 Systolic blood pressure 125 mm[Hg] Greta Rashard PA-C Work Phone: [facility] 03-30-2022 10:46-0500 Body height 169.8 cm Greta Rashard PA-C Work Phone: [facility] 03-30-2022 10:46-0500 Body temperature 97.81 [degF] Greta Rashard PA-C Work Phone: [facility] 03-30-2022 10:46-0500 Body weight 87.64 kg Greta Rashard PA-C Work Phone: [facility] 03-30-2022 10:46-0500 Diastolic blood pressure 72 mm[Hg] Greta Rashard PA-C Work Phone: [facility] 03-30-2022 10:46-0500 Heart rate 69 /min Greta Rashard PA-C Work Phone: [facility] 03-30-2022 10:46-0500 Respiratory rate 16 /min Greta Rasahrd PA-C Work Phone: [facility] 03-30-2022 10:46-0500 SaO2% (BldA) [Mass fraction] 98 % Greta Rashard PA-C Work Phone: [facility] 03-30-2022 10:46-0500 Systolic blood pressure 136 mm[Hg] Greta Rashard PA-C Work Phone: [facility] 03-16-2022 08:36-0400 Body height 169.8 cm Greta Rashard PA-C Work Phone: [facility] 03-16-2022 08:36-0400 Body temperature 97.81 [degF] Greta Rashard PA-C Work Phone: [facility] 03-16-2022 08:36-0400 Body weight 87.45 kg Greta Rashard PA-C Work Phone: [facility] 03-16-2022 08:36-0400 Diastolic blood pressure 75 mm[Hg] Greta Rashard PA-C Work Phone: [facility] 03-16-2022 08:36-0400 Heart rate 70 /min Greta Rashard PA-C Work Phone: [facility] 03-16-2022 08:36-0400 Respiratory rate 16 /min Greta Rashard PA-C Work Phone: [facility] 03-16-2022 08:36-0400 SaO2% (BldA) [Mass fraction] 97 % Greta Cardenaser PA-C Work Phone: [facility] 03-16-2022 08:36-0400 Systolic blood pressure 143 mm[Hg] Greta Rashard PA-C Work Phone: [facility] 03-09-2022 08:59-0400 Body height 172.7 cm Grace Bess MD Work Phone: [facility] 03-09-2022 08:59-0400 Body temperature 97.5 [degF] Grace Bess MD Work Phone: [facility] 03-09-2022 08:59-0400 Body weight 86.27 kg Grace Bess MD Work Phone: [facility] 03-09-2022 08:59-0400 Diastolic blood pressure 66 mm[Hg] Grace Bess MD Work Phone: [facility] 03-09-2022 08:59-0400 Heart rate 70 /min Grace Bess MD Work Phone: [facility] 03-09-2022 08:59-0400 Respiratory rate 16 /min Grace Bess MD Work Phone: [facility] 03-09-2022 08:59-0400 SaO2% (BldA) [Mass fraction] 98 % Grace Bess MD Work Phone: [facility] 03-09-2022 08:59-0400 Systolic blood pressure 143 mm[Hg] Grace Bess MD Work Phone: [facility] 02-22-2022 10:17-0400 Body height 172.7 cm Grace Bess MD Work Phone: [facility] 02-22-2022 10:17-0400 Body temperature 98.01 [degF] Grace Bess MD Work Phone: [facility] 02-22-2022 10:17-0400 Body weight 86.46 kg Grace Bess MD Work Phone: [facility] 02-22-2022 10:17-0400 Diastolic blood pressure 73 mm[Hg] Grace Bess MD Work Phone: [facility] 02-22-2022 10:17-0400 Heart rate 70 /min Grace Bess MD Work Phone: [facility] 02-22-2022 10:17-0400 Respiratory rate 16 /min Grace Bess MD Work Phone: [facility] 02-22-2022 10:17-0400 SaO2% (BldA) [Mass fraction] 99 % Grace Bess MD Work Phone: [facility] 02-22-2022 10:17-0400 Systolic blood pressure 135 mm[Hg] Grace Bess MD Work Phone: [facility] 10-22-2021 11:10-0400 Diastolic blood pressure 76 mm[Hg] Eyad Manriquez MD Work Phone: [facility] 10-22-2021 11:10-0400 Heart rate 64 /min Eyad Manriquez MD Work Phone: [facility] 10-22-2021 11:10-0400 Respiratory rate 16 /min Eyad Manriquez MD Work Phone: [facility] 10-22-2021 11:10-0400 SaO2% (BldA) [Mass fraction] 98 % Eyad Manriquez MD Work Phone: [facility] 10-22-2021 11:10-0400 Systolic blood pressure 130 mm[Hg] Eyad Manriquez MD Work Phone: [facility] 10-22-2021 10:50-0400 Body temperature 97.7 [degF] Eyad Manriquez MD Work Phone: [facility] 10-22-2021 09:48-0400 Body height 172.7 cm Eyad Manriquez MD Work Phone: [facility] 10-22-2021 09:48-0400 Body weight 86.18 kg Eyad Manriquez MD Work Phone: [facility] Encounters Encounter Date Encounter Type Care Provider Facility Start: 03-18-2024 End: 03-18-2024 Telephone encounter Yordy Moncada APRN.BUSINESS PROGRAMMER Work Phone: Hematology/Oncology Comment on above: Lab Orders Start: 03-07-2024 End: 03-07-2024 Telephone encounter Josephine Salomon RN Work Phone: Hematology/Oncology Comment on above: Care Coordination (T umor marker results) Start: 03-07-2024 End: 03-07-2024 ambulatory Chair [address] [place] Work Phone: Hematology/Oncology Comment on above: Malignant neoplasm o f head of pancreas (HCC) (Primary Dx) Start: 03-05-2024 End: 03-05-2024 Clinisync Result Encounter Generic External Data Provider [facility] External Department Unsolicited Start: 03-05-2024 End: 03-05-2024 Clinisync Result Encounter Generic External Data Provider [facility] External Department Unsolicited Start: 03-05-2024 End: 03-05-2024 Patient encounter procedure Vivek Smith MD Work Phone: Hematology/Oncology Start: 03-05-2024 End: 03-05-2024 ambulatory [facility] [place] [facility] [place] Work Phone: Hematology/Oncology Comment on above: Malignant neoplasm o f head of pancreas (HCC) Malignant neoplasm o f head of pancreas (HCC) (Primary Dx) Start: 02-14-2024 End: 02-14-2024 ambulatory Chair [address] [place] Work Phone: Hematology/Oncology Comment on above: Malignant neoplasm o f head of pancreas (HCC) (Primary Dx) Start: 02-12-2024 End: 02-12-2024 Patient encounter procedure Vivek Smith MD Work Phone: Hematology/Oncology Start: 02-12-2024 End: 02-12-2024 ambulatory [facility] [place] Work Phone: Hematology/Oncology Comment on above: Malignant neoplasm o f head of pancreas (HCC) Malignant neoplasm o f head of pancreas (HCC) (Primary Dx) Start: 01-25-2024 End: 01-25-2024 ambulatory Chair [address] [place] Work Phone: Hematology/Oncology Comment on above: Malignant neoplasm o f head of pancreas (HCC) (Primary Dx) Start: 01-23-2024 End: 01-23-2024 Office outpatient visit 15 minutes Greta Wetzel PA-C Work Phone: Hematology/Oncology Comment on above: Malignant neoplasm o f head of pancreas (HCC) (Primary Dx) Start: 01-23-2024 End: 01-23-2024 ambulatory [facility] Work Phone: Hematology/Oncology Comment on above: Malignant neoplasm o f head of pancreas (HCC) Malignant neoplasm o f head of pancreas (HCC) (Primary Dx) Start: 01-05-2024 End: 01-05-2024 ambulatory Chair [address] [place] Work Phone: Hematology/Oncology Comment on above: Malignant neoplasm o f head of pancreas (HCC) (Primary Dx) Start: 01-04-2024 Telephone encounter Key Osorio Hematology/Oncology Comment on above: Results Start: 01-03-2024 End: 01-03-2024 Office outpatient visit 15 minutes Greta Wetzel PA-C Work Phone: Hematology/Oncology Comment on above: Malignant neoplasm o f head of pancreas (HCC) (Primary Dx); Central line complication, initial encounter Start: 01-03-2024 End: 01-03-2024 ambulatory [facility] [place] Work Phone: Hematology/Oncology Comment on above: Malignant neoplasm o f head of pancreas (HCC) Malignant neoplasm o f head of pancreas (HCC) (Primary Dx) Start: 01-02-2024 End: 01-10-2024 Telephone encounter Greta Wetzel PA-C Work Phone: Hematology/Oncology Comment on above: Lab Orders Start: 12-29-2023 End: 12-29-2023 ambulatory KARUNAKARAVEL KARUPPASAMY Facility:[facility] Start: 12-27-2023 Telephone encounter Adina Schmitz RN [facility] Radiology Procedure Comment on above: Radiology Pre Proced ure Instructions Start: 12-26-2023 Telephone encounter Luisa Cameron RN [facility] Radiology Procedure Comment on above: Radiology Pre Proced ure Instructions Start: 12-25-2023 Telephone encounter Donnell Swenson RN [facility] Radiology Procedure Start: 12-13-2023 End: 12-13-2023 ambulatory Chair [address] [place] Work Phone: Hematology/Oncology Comment on above: Malignant neoplasm o f head of pancreas (HCC) (Primary Dx) Start: 12-11-2023 End: 12-11-2023 Patient encounter procedure Vivek Smith MD Work Phone: Hematology/Oncology Start: 12-11-2023 End: 12-11-2023 ambulatory [facility] [place] Work Phone: Hematology/Oncology Comment on above: Malignant neoplasm o f head of pancreas (HCC) Malignant neoplasm o f head of pancreas (HCC) (Primary Dx) Malignant neoplasm o f head of pancreas (HCC) (Primary Dx); Central line complication, initial encounter Start: 12-05-2023 Telephone encounter Josephine Salomon RN Work Phone: Hematology/Oncology Comment on above: Care Coordination (P ortogram results) Start: 11-28-2023 Telephone encounter Josephine Salomon RN Work Phone: Hematology/Oncology Comment on above: Care Coordination (P ort questions) Start: 11-22-2023 End: 11-22-2023 ambulatory Chair [address] [place] Work Phone: Hematology/Oncology Comment on above: Malignant neoplasm o f head of pancreas (HCC) (Primary Dx) Refill Request; PORT ; Clinical Update Start: 11-20-2023 End: 11-20-2023 Patient encounter procedure Vivek Smith MD Work Phone: Hematology/Oncology Start: 11-20-2023 End: 11-21-2023 ambulatory [facility] [place] [facility] [place] Work Phone: Hematology/Oncology Comment on above: Malignant neoplasm o f head of pancreas (HCC) Malignant neoplasm o f head of pancreas (HCC) (Primary Dx) Start: 11-17-2023 End: 11-17-2023 ambulatory GIOVANNI SALINAS II Facility:[facility] Start: 11-17-2023 End: 11-17-2023 Subsequent hospital visit by physician Arrival Time Radiology Work Phone: Radiology [facility] Comment on above: Malignant neoplasm o f head of pancreas (HCC) [C25.0] Start: 11-02-2023 End: 11-02-2023 ambulatory Chair Hannah Delgado Work Phone: Hematology/Oncology Comment on above: Malignant neoplasm o f head of pancreas (HCC) (Primary Dx) Start: 11-02-2023 End: 11-02-2023 Office outpatient visit 10 minutes Greta Wetzel PA-C Work Phone: Hematology/Oncology Comment on above: Malignant neoplasm o f head of pancreas (HCC) (Primary Dx); Cellulitis of other specified site Start: 10-31-2023 End: 10-31-2023 Patient encounter procedure Grace Bess MD Work Phone: Hematology/Oncology Start: 10-31-2023 End: 11-01-2023 ambulatory [facility] [place] Work Phone: Hematology/Oncology Comment on above: Malignant neoplasm o f head of pancreas (HCC) Malignant neoplasm o f head of pancreas (HCC) (Primary Dx) Start: 10-27-2023 End: 10-27-2023 ambulatory GIOVANNI SALINAS Not Available Start: 10-17-2023 Telephone encounter Josephine Salomon RN Work Phone: Hematology/Oncology Comment on above: Care Coordination (H ospital d/c follow up call) Start: 10-13-2023 Telephone encounter Shanta Cid RN Hematology/Oncology Comment on above: Patient Question Start: 10-13-2023 End: 10-13-2023 ambulatory Chair [address] [place] Work Phone: Hematology/Oncology [...] Start: 10-11-2023 End: 10-11-2023 ambulatory [facility] Work Phone: Hematology/Oncology Comment on above: [...] XR results) Start: 10-03-2023 Telephone encounter [facility]C [facility] Start: 10-03-2023 End: 10-03-2023 Subsequent hospital visit by physician General Debbie Delgado Mc Work Phone: Radiology Comment on above: Acute cough [R05.1] Start: 10-03-2023 End: 10-03-2023 Office outpatient visit 25 minutes Greta Wetzel PA-C Work Phone: Hematology/Oncology Comment on above: Malignant neoplasm o f head of pancreas (HCC) (Primary Dx); Leg swelling; Neuropathy; Acute cough; Diabetes mellitus due to underlying condition with diabetic polyneuropathy, without long-term current use of insulin (HCC) Start: 10-03-2023 End: 10-03-2023 ambulatory [facility] [place] [facility] [place] Work Phone: Hematology/Oncology Comment on above: Malignant neoplasm o f head of pancreas (HCC); Neuropathy Start: 09-25-2023 Telephone encounter Greta woodson PA-C Work Phone: Hematology/Oncology Comment on above: Lab Orders Start: 09-18-2023 Telephone encounter Josephine Salomon RN Work Phone: Hematology/Oncology Comment on above: Care Coordination (c ough) Start: 09-15-2023 End: 09-15-2023 ambulatory Chair [address] [place] Work Phone: Hematology/Oncology Comment on above: Malignant neoplasm o f head of pancreas (HCC) (Primary Dx) Start: 09-13-2023 End: 09-13-2023 Nutrition therapy Yordy Moncada APRN.BUSINESS PROGRAMMER Work Phone: Hematology/Oncology Comment on above: Malignant neoplasm o f head of pancreas (HCC) (Primary Dx); Type 2 diabetes mellitus without complication, with long-term current use of insulin (HCC); Neuropathy; Severe protein-calorie malnutrition (HCC); Diabetes mellitus due to underlying condition with diabetic polyneuropathy, without long-term current use of insulin (HCC) Start: 09-13-2023 End: 09-13-2023 Patient encounter procedure Yordy Moncada APRN.BUSINESS PROGRAMMER Work Phone: Hematology/Oncology Start: 09-13-2023 End: 09-13-2023 ambulatory [facility] [place] [facility] [place] Work Phone: Hematology/Oncology Comment on above: Malignant neoplasm o f head of pancreas (HCC) Malignant neoplasm o f head of pancreas (HCC) (Primary Dx) Start: 08-25-2023 End: 08-25-2023 ambulatory GIOVANNI SALINAS II Facility:[facility] Start: 08-23-2023 End: 08-23-2023 Patient encounter procedure Grace Bess MD Work Phone: [facility] Start: 08-23-2023 End: 08-23-2023 ambulatory [facility] [place] [facility] [place] Work Phone: Hematology/Oncology Comment on above: Malignant neoplasm o f head of pancreas (HCC) Malignant neoplasm o f head of pancreas (HCC) (Primary Dx) Start: 08-18-2023 End: 08-18-2023 ambulatory GIOVANNI B SALINAS Facility:[facility] Start: 08-18-2023 End: 08-18-2023 Subsequent hospital visit by physician Arrival Time Radiology Work Phone: Radiology [facility] Comment on above: Malignant neoplasm o f head of pancreas (HCC) [C25.0] Start: 08-09-2023 Telephone encounter Josephine Salomon RN Work Phone: Hematology/Oncology Comment on above: Care Coordination (A ppointment cancellation) Start: 08-04-2023 End: 08-04-2023 ambulatory GIOVANNI SALINAS Facility:[facility] Start: 08-04-2023 End: 08-04-2023 ambulatory Chair [address] [place] Work Phone: Hematology/Oncology Comment on above: Malignant neoplasm o f head of pancreas (HCC) (Primary Dx) Start: 08-02-2023 End: 08-02-2023 Patient encounter procedure Grace Bess MD Work Phone: [facility] Start: 08-02-2023 End: 08-02-2023 ambulatory [facility] [place] [facility] [place] Work Phone: [facility] Comment on above: Malignant neoplasm o f head of pancreas (HCC) (Primary Dx) Start: 08-02-2023 End: 08-02-2023 Nutrition therapy [facility] [place] Work Phone: Hematology/Oncology Comment on above: Malignant neoplasm o f head of pancreas (HCC); Type 2 diabetes mellitus without complication, with long-term current use of insulin (HCC); Neuropathy; Severe protein-calorie malnutrition (HCC) Start: 07-21-2023 End: 07-21-2023 ambulatory Chair [address] [place] Work Phone: Hematology/Oncology Comment on above: Malignant neoplasm o f head of pancreas (HCC) (Primary Dx) Start: 07-19-2023 End: 07-19-[address] Work Phone: Nutrition Therapy Comment on above: Nutrition Assessment Malignant neoplasm o f head of pancreas (HCC) (Primary Dx); Type 2 diabetes mellitus without complication, with long-term current use of insulin (HCC); Neuropathy; Severe protein-calorie malnutrition (HCC) Start: 07-19-2023 End: 07-19-2023 Patient encounter procedure Yordy Moncada APRN.BUSINESS PROGRAMMER Work Phone: [facility] Start: 07-19-2023 End: 07-19-2023 ambulatory [facility] [place] [facility] [place] Work Phone: Hematology/Oncology Comment on above: Malignant [...] External Department Unsolicited Start: 07-05-2023 End: 07-05-2023 Patient encounter procedure Yordy Moncada APRN.BUSINESS PROGRAMMER Work Phone: [facility] Start: 07-05-2023 End: 07-05-2023 ambulatory [facility] [place] [facility] [place] Work Phone: Hematology/Oncology Comment on above: Malignant neoplasm o f head of pancreas (HCC) Malignant neoplasm o f head of pancreas (HCC) (Primary Dx) Start: 06-23-2023 Telephone encounter Josephine Salomon RN Work Phone: Hematology/Oncology Comment on above: Care Coordination (L ab results) Start: 06-23-2023 End: 06-26-2023 ambulatory Chair Hannah Delgado Work Phone: Hematology/Oncology Comment on above: Malignant neoplasm o f head of pancreas (HCC) (Primary Dx) Start: 06-21-2023 End: 06-21-2023 ambulatory GIOVANNI B SALINAS II Facility:[facility] Start: 06-21-2023 End: 06-21-2023 ambulatory GIOVANNI B SALINAS II Facility:[facility] Start: 06-09-2023 End: 06-09-2023 ambulatory GIOVANNI B SALINAS II Facility:[facility] Start: 06-07-2023 End: 06-07-2023 ambulatory GIOVANNI B SALINAS II Facility:[facility] Start: 06-07-2023 End: 06-07-2023 ambulatory GIOVANNI B SALINAS II Facility:[facility] Start: 05-24-2023 End: 05-24-2023 ambulatory GIOVANNI B SALINAS II Facility:[facility] Start: 05-18-2023 End: 05-18-2023 ambulatory GIOVANNI B SALINAS II Facility:[facility] Start: 05-18-2023 End: 05-18-2023 Subsequent hospital visit by physician Arrival Time Radiology Work Phone: Radiology [facility] Comment on above: Malignant neoplasm o f head of pancreas (HCC) [C25.0] Start: 05-12-2023 End: 05-12-2023 ambulatory GIOVANNI B SALINAS II Facility:[facility] Start: 05-08-2023 Telephone encounter Grace rebolledo MD Work Phone: Hematology/Oncology Comment on above: Orders Start: 05-05-2023 End: 05-05-2023 Patient encounter procedure Grace Bess MD Work Phone: [facility] Start: 05-05-2023 End: 05-08-2023 ambulatory Grace Bess MD Work Phone: Hematology/Oncology Comment on above: Malignant neoplasm o f head of pancreas (HCC) (Primary Dx) Start: 05-05-2023 End: 05-05-2023 Nutrition therapy [place] Work Phone: Hematology/Oncology Comment on above: Type 2 diabetes chris itus without complication, with long-term current use of insulin (HCC); Severe protein-calorie malnutrition (HCC); Malignant neoplasm of head of pancreas (HCC); Anemia, unspecified type Start: 04-27-2023 End: 04-27-2023 ambulatory GIOVANNI SALINAS Not Available Start: 04-25-2023 Patient encounter status Generic Provider [facility] Start: 04-07-2023 Telephone encounter Josephine Salomon RN Work Phone: Hematology/Oncology Comment on above: Care Coordination (T umor marker results) Start: 04-05-2023 End: 04-05-2023 Nutrition therapy Yordy Moncada APRN.BUSINESS PROGRAMMER Work Phone: Hematology/Oncology Comment on above: Malignant neoplasm o f head of pancreas (HCC) (Primary Dx); Type 2 diabetes mellitus without complication, with long-term current use of insulin (HCC); Severe protein-calorie malnutrition (HCC); Anemia, unspecified type Start: 04-05-2023 End: 04-05-2023 Patient encounter procedure Yordy Moncada APRN.BUSINESS PROGRAMMER Work Phone: [place] Start: 04-05-2023 End: 04-06-2023 ambulatory [facility] Work Phone: Hematology/Oncology Comment on above: Malignant [...] nation (Tumor marker results) Start: 03-30-2023 End: 03-30-2023 Nutrition therapy Greta Wetzel PA-C Work Phone: Hematology/Oncology Comment on above: Malignant neoplasm o f other parts of pancreas (HCC) (Primary Dx); Type 2 diabetes mellitus without complication, with long-term current use of insulin (HCC); Severe protein-calorie malnutrition (HCC) Start: 03-30-2023 End: 03-30-2023 Patient encounter procedure Greta Wetzel PA-C Work Phone: [place] Start: 03-30-2023 End: 03-31-2023 ambulatory GIOVANNI SALINAS II Facility:[facility] Start: 03-08-2023 End: 03-08-2023 Patient encounter procedure Grace Bess MD Work Phone: [employer] Start: 03-08-2023 End: 03-08-2023 ambulatory Lab/[place] [...] marker results) Start: 03-01-2023 End: 03-01-2023 ambulatory [facility] Work Phone: Hematology/Oncology Comment on above: Malignant neoplasm o f other parts of pancreas (HCC) Malignant neoplasm o f head of pancreas (HCC) (Primary Dx) Start: 02-08-2023 End: 02-08-2023 ambulatory Chair Martin Delgado Work Phone: Hematology/Oncology Comment on above: Malignant neoplasm o f head of pancreas (HCC) (Primary Dx) Start: 02-08-2023 End: 02-08-2023 Nutrition therapy Yordy Moncada APRN.CNP Work Phone: Hematology/Oncology Comment on above: Malignant neoplasm o f other parts of pancreas (HCC) (Primary Dx); Type 2 diabetes mellitus without complication, with long-term current use of insulin (HCC); LINDSEY (dyspnea on exertion); Severe protein-calorie malnutrition (HCC) Start: 02-08-2023 End: 02-08-2023 Patient encounter procedure Yordy Moncada APRN.CNP Work Phone: [place] Start: 02-01-2023 Telephone encounter [...] (Primary Dx) Start: 01-04-2023 End: 01-04-2023 ambulatory Grace Bess MD Work Phone: Hematology/Oncology Comment on above: Malignant neoplasm o f other parts of pancreas (HCC) (Primary Dx) Start: 01-04-2023 End: 01-04-2023 Patient encounter procedure Grace Bess MD Work Phone: [employer] Start: 12-21-2022 Telephone encounter Josephine Salomon RN Work Phone: Hematology/Oncology Comment on above: Care Coordination (C T results) Start: 12-21-2022 End: 12-21-2022 Nutrition therapy Greta [...] patient visit II Giovanni Salinas Work Phone: [facility] Work Phone: Start: 12-14-2022 End: 12-14-2022 ambulatory [facility] Work Phone: Hematology/Oncology Comment on above: Malignant neoplasm o f head of pancreas (HCC) Malignant neoplasm o f head of pancreas (HCC) (Primary Dx) Start: 12-06-2022 Patient encounter procedure [facility] Provider [facility] Department Start: 12-05-2022 Telephone encounter Grace rebolledo MD [...] 12-05-2022 End: 12-05-2022 ambulatory [facility] Work Phone: Hematology/Oncology Comment on above: Malignant neoplasm o f head of pancreas (HCC) Start: 11-30-2022 End: 11-30-2022 Patient encounter procedure Grace Bess MD Work Phone: [place] Start: 11-30-2022 End: 11-30-2022 ambulatory Lab[facility] Work Phone: Hematology/Oncology Comment on above: Malignant neoplasm o f head of pancreas (HCC) Malignant neoplasm o f head of pancreas (HCC) (Primary Dx) Start: 11-23-2022 End: 11-23-2022 Nutrition therapy Greta [...] 11-23-2022 Telephone encounter Greta Jacoby Marcus woodson PANeighborMD [facility] Comment on above: Future Appointment Start: 11-23-2022 End: 11-23-2022 ambulatory [facility] Work Phone: Hematology/Oncology Comment on above: Malignant neoplasm o f head of pancreas (HCC) Malignant neoplasm o f head of pancreas (HCC) (Primary Dx) Start: 11-10-2022 Telephone encounter Josephine Salomon RN Work Phone: Hematology/Oncology Comment on above: Care Coordination (E R recommendation) Start: 11-10-2022 End: 11-10-2022 Patient encounter procedure [...] Comment on above: Research (IRB# [id number] Informed Consent) Start: 11-03-2022 End: 11-03-2022 Subsequent hospital visit by physician Arrival Time Radiology Work Phone: Radiology Pet CT Comment on above: Malignant neoplasm o f head of pancreas (HCC) [C25.0] Start: 09-29-2022 End: 09-29-2022 Patient encounter procedure Grace Bess MD Work Phone: [place] Start: 09-29-2022 End: 09-29-2022 ambulatory Grace Bess MD Work Phone: Hematology/Oncology Comment on above: Malignant neoplasm o f head of pancreas (HCC) (Primary Dx) Malignant neoplasm o f head of pancreas (HCC) Start: 08-03-2022 Refill Adina Colón [facility] HB-3 Comment on above: Refill Request Start: 08-02-2022 End: 08-02-2022 ambulatory Grace Bess MD Work Phone: Hematology/Oncology Comment on above: Malignant neoplasm o f head of pancreas (HCC) (Primary Dx) Refill Request Malignant neoplasm o f head of pancreas (HCC) Start: 08-02-2022 End: 08-02-2022 Patient encounter procedure Grace Bess MD Work Phone: [place] Start: 07-27-2022 End: 07-27-2022 Subsequent hospital visit by physician Arrival Time Radiology Work Phone: Radiology Pet CT Comment on above: Malignant neoplasm o f head of pancreas (HCC) [C25.0] Start: 06-29-2022 End: 06-29-2022 Patient encounter procedure Grace Bess MD Work Phone: [place] Start: 06-29-2022 End: 06-29-2022 ambulatory [facility] Work Phone: Hematology/Oncology Comment on above: Malignant neoplasm o f head of pancreas (HCC) Malignant neoplasm o f head of pancreas (HCC) (Primary Dx) Start: 06-01-2022 End: 06-01-2022 ambulatory [facility] Work Phone: Hematology/Oncology Comment on above: Malignant neoplasm o f head of pancreas (HCC) Start: 05-25-2022 End: 05-25-2022 Subsequent hospital visit by physician Arrival Time Radiology Work Phone: Radiology Pet CT Comment on above: Malignant neoplasm o f head of pancreas (HCC) [C25.0] Start: 05-11-2022 Telephone encounter Key Osorio Hematology/Oncology Comment on above: Orders Start: 05-11-2022 End: 05-11-2022 Patient encounter procedure Grace Bess MD Work Phone: [employer] Start: 05-11-2022 End: 05-11-2022 ambulatory Lab[facility] Work Phone: Hematology/Oncology Comment on above: Malignant [...] encounter procedure Yordy Moncada APRN.CNP Work Phone: [employer] Start: 04-26-2022 End: 04-26-2022 ambulatory Lab[facility] Work Phone: Hematology/Oncology Comment on above: Malignant neoplasm o f head of pancreas (HCC) Start: 04-20-2022 Telephone encounter Josephine Salomon RN Work Phone: Hematology/Oncology Comment on above: Care Coordination (M edication clarification) Start: 04-20-2022 End: 04-20-2022 ambulatory [facility] Work Phone: Hematology/Oncology Comment on above: Malignant [...] Telephone encounter Jose Antonio LARSON Work Phone: [facility] Comment on above: Results Start: 03-17-2022 Telephone encounter Josephine Salomon RN Work Phone: Hematology/Oncology Comment on above: Care Coordination (S tool results) Start: 03-16-2022 End: 03-16-[address] Work Phone: Nutrition Therapy Comment on above: Nutrition Counseling Start: 03-16-2022 End: 03-16-2022 Telemedicine consultation with patient Jose Antonio LARSON Work Phone: [facility] Start: 03-16-2022 End: 03-16-2022 Patient encounter [...] on Care Coordination (A ntiemetics transferred to [facility] in [place]) Start: 03-09-2022 End: 03-09-[address] Work Phone: Nutrition Therapy Comment on above: Nutrition Assessment Start: 03-09-2022 End: 03-09-2022 Patient encounter procedure Grace Bess MD Work Phone: [place] Start: 03-07-2022 Telephone encounter Josephine Salomon RN Work Phone: Hematology/Oncology Comment on above: Care Coordination (D ietician referral) Start: 03-07-2022 End: 03-07-2022 Subsequent hospital visit by physician Arrival Time Radiology Work Phone: Radiology Pet CT Comment on above: Malignant neoplasm o f head of pancreas (HCC) [C25.0] Start: 03-07-2022 End: 03-07-2022 Nursing evaluation of patient and report Josephine Salomon RN Work Phone: Hematology/Oncology Comment on above: Malignant neoplasm o f head of pancreas (HCC) (Primary Dx) Start: 03-04-2022 Telephone encounter Josephine Salomon RN Work Phone: Hematology/Oncology Comment on above: Care Coordination (A ntiemetics for treatment) Start: 02-25-2022 Telephone encounter Vel Sims RN [facility] Radiology Procedure Comment on above: Radiology Pre Proced ure Instructions Start: 02-23-2022 Orders Only Antoinette Marina RN [facility] Radiology Procedure Comment on above: Malignant [...] encounter procedure Grace Bess MD Work Phone: [facility] Start: 02-17-2022 End: 02-18-2022 Patient encounter procedure Fara Monaco MD Work Phone: General Surgery Comment on above: 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 Start: 01-22-2021 End: 02-19-[address] GIOVANNI [...] End: 04-16-2020 Patient encounter procedure FARA MONACO [facility] Start: 04-15-2020 End: 04-15-2020 Subsequent hospital visit by physician Giovanni Salinas [facility] Start: 03-16-2020 End: 03-17-2020 Patient encounter procedure GIOVANNI SALINAS [facility] Start: 03-16-2020 End: 03-16-2020 Subsequent hospital visit by physician Giovanni Salinas [facility] Start: 11-23-2019 Patient encounter status Eyad Manriquez MD Work Phone: [facility] Work Phone: Procedures Date Procedure Procedure Detail Performing Clinician Start: 03-05-2024 [facility] CBC W AUTO DIFF BLD Generic External Data Provider Start: 03-05-2024 Blood count complete auto&auto difrntl wbc Vivek Smith MD Work Phone: Start: 02-12-2024 Blood count complete auto&auto difrntl wbc Greta Dozier Rashard PA-C Work Phone: Start: 01-23-2024 Blood count complete auto&auto difrntl wbc Greta Dozier Rashard PA-C Work Phone: Start: 01-23-2024 Comprehensive metabo lic 2000 panel - Serum or Plasma Greta Dozier Rashard PA-C Work Phone: Start: 01-03-2024 Blood count complete auto&auto difrntl wbc Vivek Smith MD Work Phone: Start: 12-11-2023 Blood count complete auto&auto difrntl wbc Vivek Smith MD Work Phone: Start: 11-20-2023 Blood count complete auto&auto difrntl wbc Grace Bess MD Work Phone: Start: 11-17-2023 Ct abdomen & pelvis w/contrast material Grace Bess MD Work Phone: Start: 11-17-2023 Ct thorax w/contrast material Grace Bess MD Work Phone: Start: 10-31-2023 Blood count complete auto&auto difrntl wbc Greta Jacoby Rashard PA-C Work Phone: Start: 10-11-2023 Urnls dip stick/tabl et rgnt auto w/o microscopy [facility] Provider Start: 10-11-2023 Blood count complete auto&auto difrntl wbc Greta Dozier Rashard ODEN-C Work Phone: Start: 10-03-2023 Radiologic exam ches t 2 views Greta Dozier Rashard PA-C Work Phone: Start: 10-03-2023 Blood count complete auto&auto difrntl wbc Greta Dozier Rashard PA-C Work Phone: Start: 09-13-2023 Blood count complete auto&auto difrntl wbc Grace Bess MD Work Phone: Start: 08-23-2023 Blood count complete auto&auto difrntl wbc Grace Bess MD Work Phone: Start: 08-18-2023 Ct abdomen & pelvis w/contrast material Grace Bess MD Work Phone: Start: 08-18-2023 Ct thorax w/contrast material Grace Bess MD Work Phone: Start: 08-02-2023 Blood count complete auto&auto difrntl wbc Yordy Moncada [employer].BUSINESS PROGRAMMER Work Phone: Start: 07-19-2023 Blood count complete auto&auto difrntl wbc Yordy Moncada SPIR[employer] TUBE WINDER.BUSINESS PROGRAMMER Work Phone: Start: 07-05-2023 [facility] CBC W AUTO DIFF BLD Generic External Data Provider Start: 07-05-2023 Blood count complete auto&auto difrntl wbc Grace eBss MD Work Phone: Start: 05-18-2023 Ct abdomen & pelvis w/contrast material Grace Bess MD Work Phone: Start: 05-18-2023 Ct thorax w/contrast material Grace Bess MD Work Phone: Start: 05-18-2023 CREATININE BLD Greta ODEN-C Work Phone: Start: 05-05-2023 Blood count complete auto&auto difrntl wbc Yordy Moncada SPIRAL TUBE WINDER.BUSINESS PROGRAMMER Work Phone: Start: 04-05-2023 Blood count complete auto&auto difrntl wbc Yordy Moncada SPIRAL TUBE WINDER.BUSINESS PROGRAMMER Work Phone: Start: 03-08-2023 Blood count complete [...] Blood count complete auto&auto difrntl wbc Greta QUINTEROC Work Phone: Start: 11-23-2022 Blood count complete auto&auto difrntl wbc Grace Bess MD Work Phone: Start: 11-10-2022 Blood count complete auto&auto difrntl wbc Grace Bess MD Work Phone: Start: 11-03-2022 Ct abdomen & pelvis w/contrast material Grace Bess MD Work Phone: Start: 11-03-2022 Ct thorax w/contrast material Grace Bess MD Work Phone: Start: 09-29-2022 Blood count complete auto&auto difrntl wbc Grace Bess MD Work Phone: Start: 08-02-2022 Blood count complete auto&auto difrntl wbc Grace Bess MD Work Phone: Start: 07-27-2022 Ct abdomen & pelvis w/contrast material Grace Bess MD Work Phone: Start: 07-27-2022 Ct thorax w/contrast material Grace Bess MD Work Phone: Start: 06-29-2022 Blood count complete auto&auto difrntl wbc Grace Bess MD Work Phone: Start: 06-01-2022 Blood count complete auto&auto difrntl wbc Grace Bess MD Work Phone: Start: 05-25-2022 Ct abdomen & pelvis w/contrast material Grace Bess MD Work Phone: Start: 05-25-2022 Ct thorax w/contrast material Grace Bess MD Work Phone: Start: 05-11-2022 Blood count complete auto&auto difrntl wbc Yordy Moncada APRN.CNP Work Phone: Start: 04-26-2022 Blood count complete auto&auto difrntl wbc Grace Bess MD Work Phone: Start: 04-20-2022 Blood count complete auto&auto difrntl wbc Greta Wetzel PA-C Work Phone: Start: 04-06-2022 CBC + DIFF Greta Jacoby Marcus sser PA-C Work Phone: Start: 04-06-2022 Comprehensive metabo lic panel Greta Wetzel PA-C Work Phone: Start: 03-16-2022 Blood count complete auto&auto difrntl wbc Grace Bess MD Work Phone: Start: 03-07-2022 Ct thorax w/contrast material Grcae Bess MD Work Phone: Start: 03-07-2022 Blood count complete auto&auto difrntl wbc Grace Bess MD Work Phone: Start: 03-07-2022 Immunoassay tumor an tigen quantitative ca 19-9 Grace Bess MD Work Phone: Start: 02-15-2022 Ct abdomen w/contras t material Fara Monaco MD Work Phone: Start: 02-15-2022 CREATININE BLD Fara chino MD Work Phone: Start: 12-04-2020 Colonoscopy Eyad andrew MD Work Phone: Start: 04-15-2020 Blood count complete auto&auto difrntl wbc TOMS MONACO Start: 04-15-2020 Comprehensive metabo lic panel TOMS MONACO Start: 04-15-2020 Blood count complete auto&auto difrntl wbc Toms Monaco Work Phone: Start: 04-15-2020 Comprehensive metabo lic panel Toms Monaco Work Phone: Start: 03-16-2020 Blood count complete automated TOMS MONACO Start: 03-16-2020 Comprehensive metabo lic panel TOMS MONACO Start: 03-16-2020 Blood count complete automated Giovanni [place] Work Phone: Start: 03-16-2020 Comprehensive metabo lic panel Giovanni Salinas Work Phone: Start: 11-24-2019 Lipid 1996 panel - S dusty or Plasma Lab/[place] Work Phone: Start: 11-13-2019 Colonoscopy Generic Pr ovider Plan of Treatment Date Care Activity Detail Author Start: 12-15-2032 Urine microalbumin profile [facility] Start: 12-04-2030 Screening for malign ant neoplasm of colon [facility] Start: 11-12-2029 Screening for malign ant neoplasm of colon [facility] Start: 05-05-2026 Diabetes Screening Diabetes Screenin jania [facility] Start: 04-05-2026 Diabetes Screening Diabetes Screenin g [facility] Start: 03-30-2026 Diabetes Screening Diabetes Screenin g [facility] Start: 03-08-2026 Diabetes Screening Diabetes Screenin g [facility] Start: 03-01-2026 Diabetes Screening Diabetes Screenin g [facility] Start: 02-08-2026 Diabetes Screening Diabetes Screenin g [facility] Start: 02-01-2026 Diabetes Screening Diabetes Screenin g [facility] Start: 01-04-2026 DIABETES SCREEN DIABETES SCREEN [facility] Start: 12-21-2025 DIABETES SCREEN DIABETES SCREEN [facility] Start: 12-14-2025 DIABET[facility]CRE[facility] Start: 11-30-2025 DIABETES SCREEN DIABETES SCREEN [facility] Start: 11-23-2025 DIABETES SCREEN DIABETES SCREEN [facility] Start: 11-10-2025 DIABETES SCREEN DIABETES SCREEN [facility] Start: 10-26-2025 DIABETES SCREEN [facility] Start: 09-29-2025 DIABETES SCREEN DIABETES SCREEN [facility] Start: 08-02-2025 DIABETES SCREEN DIABETES SCREEN [facility] Start: 06-29-2025 DIABETES SCREEN DIABETES SCREEN [facility] Start: 06-01-2025 DIABETES SCREEN DIABETES SCREEN [facility] Start: 05-11-2025 DIABETES SCREEN DIABETES SCREEN [facility] Start: 04-26-2025 DIABETES SCREEN DIABETES SCREEN [facility] Start: 04-20-2025 DIABETES SCREEN [facility] Start: 04-06-2025 DIABETES SCREEN [facility] Start: 03-30-2025 DIABETES SCREEN DIABETES SCREEN [facility] Start: 03-16-2025 DIABETES SCREEN DIABETES SCREEN [facility] Start: 03-07-2025 DIABETES SCREEN DIABETES SCREEN [facility] Start: 12-21-2024 Urine screening for protein Diabetes: Urine Protein Screening [facility] Start: 11-23-2024 Lipid 1996 panel - S dusty or Plasma Lipid Screening [facility] Start: 11-23-2024 Lipid panel Lipid Screening [facility] Start: 11-23-2024 LIPID SCREEN LIPID SCREEN [facility] Start: 11-16-2024 Screening for malign ant neoplasm of lung Lung Cancer Screening [facility] Start: 08-17-2024 Screening for malign ant neoplasm of lung Lung Cancer Screening [facility] Start: 05-28-2024 End: 05-28-2024 Patient encounter procedure 05/28/2024 11:20 AM EST Office Visit [facility] [address] [place] [id number] César Leiva MD [address] [place] [address] [facility] Start: 05-18-2024 Screening for malign ant neoplasm of lung Lung Cancer Screening [facility] Start: 04-27-2024 Hemoglobin A1c measurement HbA1C [facility] Start: 04-27-2024 Pneumococcal Vaccine : 65+ Years (1 - PCV) Pneumococcal Vaccine: 65+ Years (1 - PCV) [facility] Comment on above: Postponed from 04/21 (Patient Refused) Start: 04-27-2024 Pneumococcal Vaccine : 65+ Years (1 of 2 - PCV) Pneumococcal Vaccine: 65+ Years (1 of 2 - PCV) [facility] Comment on above: Postponed from 04/21 (Patient Refused) Start: 03-29-2024 End: 03-29-2024 Follow-up encounter 03/29/2024 11:00 AM [facility] Hematology/Oncology [address] [place] [address] [place] [address] 3 week follow up and chemotx Julia // [facility] connect Hematology/Oncology Comment on above: 3 week follow up and chemotx Julia // [facility] Start: 03-27-2024 End: 06-26-2024 Cancer Ag 19-9 [Units/volume] in Serum or Plasma CA 19-9 Lab Routine Malignant neoplasm of head of pancreas (HCC) Expected: 03/27/2024, Expires: 06/26/2024 [facility] Comment on above: Expected: 03/27/2024 , Expires: 06/26/2024 Start: 03-27-2024 End: 06-26-2024 CBC W Auto Differential panel - Blood COMPLETE BLOOD COUNT AND DIFFERENTIAL Lab Routine Malignant neoplasm of head of pancreas (HCC) Expected: 03/27/2024, Expires: 06/26/2024 [facility] Work Phone: Comment on above: Expected: 03/27/2024 , Expires: 06/26/2024 Start: 03-27-2024 End: 06-26-2024 Comprehensive metabolic 2000 panel - Serum or Plasma COMPREHENSIVE METABOLIC PANEL Lab Routine Malignant neoplasm of head of pancreas (HCC) Expected: 03/27/2024, Expires: 06/26/2024 [facility] Comment on above: Expected: 03/27/2024 , Expires: 06/26/2024 Start: 03-27-2024 End: 03-27-2024 Follow-up encounter Hematology/Oncology Comment on above: 3 week follow up and chemotx Julia // pump connect 3 week follow up and chemotx Julia-PORT // pump connect Start: 03-07-2024 End: 03-07-2024 Follow-up encounter 03/07/2024 11:00 AM [facility] Hematology/Oncology [facility] [place] [address] 3 week follow up and chemotx Julia // [facility] connect Hematology/Oncology Comment on above: 3 week follow up and chemotx Julia // [facility] connect Start: 03-05-2024 End: 06-04-2024 Cancer Ag 19-9 [Units/volume] in Serum or Plasma [facility] Work Phone: Comment on above: Expected: 03/05/2024 , Expires: 06/04/2024 Start: 03-05-2024 End: 03-05-2024 Follow-up encounter Hematology/Oncology Comment on above: 3 week follow up and chemotx Julia // [facility] connect Start: 02-14-2024 End: 02-14-2024 Follow-up encounter 02/14/2024 10:30 AM [facility] Infusion Center Hematology/Oncology [facility] [place] [address] 3 week follow up and chemotx Julia // [facility] connect Hematology/Oncology Comment on above: 3 week follow up and chemotx Julia // [facility] connect Start: 02-12-2024 DIABETES SCREEN DIABETES SCREEN [facility] Start: 02-12-2024 End: 02-12-2024 Follow-up encounter Hematology/Oncology Comment on above: 3 week follow up and chemotx Julia // [facility] connect Start: 01-27-2024 Hemoglobin A1c measurement Diabetes: Hemoglobin A1C [facility] Start: 01-25-2024 End: 01-25-2024 Follow-up encounter 01/25/2024 10:30 AM [facility] Infusion Center Hematology/Oncology [address] [place] [address] [place] [address] 3 week follow up and chemotx Julia // [facility] connect Hematology/Oncology Comment on above: 3 week follow up and chemotx Julia // pump connect Start: 01-23-2024 End: 04-23-2024 Cancer Ag 19-9 [Units/volume] in Serum or Plasma [facility] Comment on above: Expected: 01/23/2024 , Expires: 04/23/2024 Start: 01-23-2024 End: 04-23-2024 CBC W Auto Differential panel - Blood COMPLETE BLOOD COUNT AND DIFFERENTIAL Lab Routine Malignant neoplasm of head of pancreas (HCC) Expected: 01/23/2024, Expires: 04/23/2024 [facility] Comment on above: Expected: 01/23/2024 , Expires: 04/23/2024 Start: 01-23-2024 End: 04-23-2024 Comprehensive metabolic 2000 panel - Serum or Plasma [facility] Work Phone: Comment on above: Expected: 01/23/2024 , Expires: 04/23/2024 Start: 01-23-2024 End: 01-23-2024 Follow-up encounter Hematology/Oncology Comment on above: 3 week follow up and chemotx Julia // pump connect Start: 01-21-[address] [facility] Start: 01-05-2024 End: 01-05-2024 ambulatory Hematology/Oncology Comment on above: pump disconnect pump dc Start: 01-03-2024 End: 04-03-2024 Cancer Ag 19-9 [Units/volume] in Serum or Plasma [facility] Work Phone: Comment on above: Expected: 01/03/2024 , Expires: 04/03/2024 Start: 01-03-2024 End: 04-03-2024 CBC W Auto Differential panel - Blood COMPLETE BLOOD COUNT AND DIFFERENTIAL Lab Routine Malignant neoplasm of head of pancreas (HCC) Expected: 01/03/2024, Expires: 04/03/2024 [facility] Comment on above: Expected: 01/03/2024 , Expires: 04/03/2024 Start: 01-03-2024 End: 04-03-2024 Comprehensive metabolic 2000 panel - Serum or Plasma COMPREHENSIVE METABOLIC PANEL Lab Routine Malignant neoplasm of head of pancreas (HCC) Expected: 01/03/2024, Expires: 04/03/2024 [facility] Work Phone: Comment on above: Expected: 01/03/2024 , Expires: 04/03/2024 Start: 01-03-2024 End: 01-03-2024 ambulatory 01/03/2024 9:45 AM EDT Infusion Center Hematology/Oncology [address] [place] [address] [place] [address] [facility] Comment on above: Julia Start: 01-03-2024 End: 01-03-2024 Follow-up encounter Hematology/Oncology Comment on above: 3 week follow up and chemotx Julia // pump connect Start: 12-29-2023 End: 12-29-2023 Admission to same day surgery center 12/29/2023 10:00 AM EDT - 12/29/2023 11:30 AM EDT Surgery [facility] Radiology Procedure [id number] [place] [address] Jhonny Morgan MD [address] [place] [address] REMOVAL CATHETER PORT-A-CATH [facility] Radiology Procedure Comment on above: REMOVAL CATHETER POR T-A-CATH Start: 12-29-2023 End: 12-29-2023 Insj tunneled ctr vad w/subq port age 6 yr/> INSERTION PORT VENOUS ACCESS ADULT Central line complication, initial encounter 12/29/2023 10:00 AM EDT AV IR Start: 12-29-2023 End: 12-29-2023 Rmvl [place]ilton cvc w/o subq port/foundry process engineer REMOVAL CATHETER PORT-A-CATH Central line complication, initial encounter 12/29/2023 10:00 AM EDT AV IR Start: 12-29-2023 Subsequent hospital visit by physician 12/29/2023 10:00 AM EDT Hospital Encounter [facility] Radiology Procedure [id number] [place] [address] Jhonny Morgan MD [address] [place] [address] Central line complication, initial encounter [T82.9XXA] [facility] Radiology Procedure Comment on above: Central line complic ation, initial encounter [T82.9XXA] Start: 12-13-2023 End: 12-13-2023 ambulatory 12/13/2023 11:00 AM EDT Infusion Center Hematology/Oncology [address] [place] [address] [place] [address] pump disconnect Hematology/Oncology Comment on above: pump disconnect Start: 12-11-2023 End: 12-11-2023 Follow-up encounter Hematology/Oncology Comment on above: 3 week follow up and chemotx Julia // pump connect Start: 11-22-2023 End: 11-22-2023 ambulatory Hematology/Oncology Comment on above: pump disconnect Malignant neoplasm o f head of pancreas (HCC) (Primary Dx) Start: 11-21-2023 End: 02-20-2024 Cancer Ag 19-9 [Units/volume] in Serum or Plasma CA 19-9 Lab Routine Malignant neoplasm of head of pancreas (HCC) Expected: 11/21/2023 (Approximate), Expires: 02/20/2024 [facility] Comment on above: Expected: 11/21/2023 (Approximate), Expires: 02/20/2024 Start: 11-21-2023 End: 02-20-2024 CBC W Auto Differential panel - Blood COMPLETE BLOOD COUNT AND DIFFERENTIAL Lab Routine Malignant neoplasm of head of pancreas (HCC) Expected: 11/21/2023 (Approximate), Expires: 02/20/2024 [facility] Comment on above: Expected: 11/21/2023 (Approximate), Expires: 02/20/2024 Start: 11-21-2023 End: 02-20-2024 Comprehensive metabolic 2000 panel - Serum or Plasma COMPREHENSIVE METABOLIC PANEL Lab Routine Malignant neoplasm of head of pancreas (HCC) Expected: 11/21/2023 (Approximate), Expires: 02/20/2024 [facility] Comment on above: Expected: 11/21/2023 (Approximate), Expires: 02/20/2024 Start: 11-21-2023 End: 11-29-2024 CT Abdomen and Pelvis W contrast IV CT ABD/PEL W IVCON Radiology Routine Malignant neoplasm of head of pancreas (HCC) Expected: 11/21/2023 (Approximate), Expires: 11/29/2024 [facility] Comment on above: Expected: 11/21/2023 (Approximate), Expires: 11/29/2024 Start: 11-21-2023 End: 11-29-2024 CT Chest W contrast IV CT CHEST W IVCON Radiology Routine Malignant neoplasm of head of pancreas (HCC) Expected: 11/21/2023 (Approximate), Expires: 11/29/2024 [facility] Work Phone: Comment on above: Expected: 11/21/2023 (Approximate), Expires: 11/29/2024 Start: 11-20-2023 End: 11-20-2023 Follow-up encounter Hematology/Oncology Comment on above: 3 week follow up and chemotx Julia // pump connect Start: 11-19-2023 Influenza vaccination Influenza Vacc ine (#1) [facility] Comment on above: Postponed from 01/20 (Patient Refused) Start: 11-17-2023 End: 11-17-2023 Patient encounter procedure 11/17/2023 10:15 AM EDT Appointment Radiology Pet CT [address] [place] [address] [place] [address] CT CAP with contrast Radiology Pet CT Comment on above: CT CAP with contrast Start: 11-16-2023 End: 11-16-2023 Follow-up encounter Hematology/Oncology Comment on above: 3 week follow up and chemotx Julia // pump connecct Start: 11-14-2023 End: 11-14-2023 Follow-up encounter Hematology/Oncology Comment on above: 3 week follow up and chemotx Julia // pump connect Start: 11-14-2023 End: 11-14-2023 Follow-up encounter Hematology/Oncology Comment on above: 3 week follow up and chemotx Julai // pump connecct 3 week follow up and chemotx Julia // pump connect Start: 11-04-2023 Influenza vaccination LUNG CANCER SC REENING [facility] Start: 11-04-2023 Screening for malign ant neoplasm of lung Lung Cancer Screening [facility] Start: 11-03-2023 End: 11-03-2023 ambulatory 11/03/2023 11:00 AM EDT Infusion Center Hematology/Oncology [address] [place] [address] pump disconnect Hematology/Oncology Comment on above: pump disconnect Start: 11-02-2023 End: 11-02-2023 ambulatory 11/02/2023 12:30 PM EDT Infusion Center Hematology/Oncology [address] [place] [address] 12:30pm pump disconnect Hematology/Oncology Comment on above: 12:30pm pump disconn ect Start: 11-01-2023 End: 11-01-2023 Follow-up encounter Hematology/Oncology Comment on above: 3 week follow up and chemotx Julia // pump connecct Start: 10-27-2023 Hemoglobin A1c measurement HbA1C [facility] Start: 10-27-2023 Medicare Annual Well ness (AWV) Medicare Annual Wellness (AWV) [facility] Start: 10-27-2023 End: 10-27-2023 ambulatory 10/27/2023 10:30 AM T Infusion Center Hematology/Oncology [address] [place] [address] pump disconnect Hematology/Oncology Comment on above: pump disconnect Start: 10-25-2023 End: 10-25-2023 Follow-up encounter Hematology/Oncology Comment on above: 3 week follow up and chemotx Julia // pump connecct Start: 10-13-2023 End: 10-13-2023 ambulatory 10/13/2023 11:30 AM EDT Infusion Center Hematology/Oncology [address] [place] [address] pump disconnect Hematology/Oncology Comment on above: pump disconnect Start: 10-12-2023 End: 10-12-2023 ambulatory 10/12/2023 11:30 AM EDT Infusion Center Hematology/Oncology [address] [place] [address] pump disconnect Hematology/Oncology Comment on above: pump disconnect Start: 10-11-2023 End: 01-10-2024 Cancer Ag 19-9 [Units/volume] in Serum or Plasma CA 19-9 Lab Routine Malignant neoplasm of head of pancreas (HCC) Expected: 10/11/2023, Expires: 01/10/2024 [facility] Comment on above: Expected: 10/11/2023 , Expires: 01/10/2024 Start: 10-11-2023 End: 01-10-2024 CBC W Auto Differential panel - Blood COMPLETE BLOOD COUNT AND DIFFERENTIAL Lab Routine Malignant neoplasm of head of pancreas (HCC) Expected: 10/11/2023, Expires: 01/10/2024 [facility] Comment on above: Expected: 10/11/2023 , Expires: 01/10/2024 Start: 10-11-2023 End: 01-10-2024 Comprehensive metabolic 2000 panel - Serum or Plasma COMPREHENSIVE METABOLIC PANEL Lab Routine Malignant neoplasm of head of pancreas (HCC) Expected: 10/11/2023, Expires: 01/10/2024 [facility] Work Phone: Comment on above: Expected: 10/11/2023 , Expires: 01/10/2024 Start: 10-11-2023 End: 10-11-2023 Follow-up encounter Hematology/Oncology Comment on above: 3 week follow up and chemotx Julia // pump connecct Start: 10-11-2023 End: 10-11-2023 ambulatory 10/11/2023 9:00 AM EDT Infusion Center Hematology/Oncology [address] [place] [address] 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 Hematology/Oncology Comment on above: 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 Start: 10-10-2023 End: 10-10-2023 Follow-up encounter Hematology/Oncology Comment on above: 3 week follow up and chemotx Julia // pump connecct Start: 10-05-2023 End: 10-05-2023 ambulatory 10/05/2023 10:30 AM T Infusion Center Hematology/Oncology [address] [place] [address] [place] [address] pump disconnect Hematology/Oncology Comment on above: pump disconnect Start: 10-03-2023 End: 01-02-2024 CBC W Auto Differential panel - Blood COMPLETE BLOOD COUNT AND DIFFERENTIAL Lab Routine Leg swelling Malignant neoplasm of head of pancreas (HCC) Neuropathy Acute cough Expected: 10/03/2023, Expires: 01/02/2024 [facility] Comment on above: Expected: 10/03/2023 , Expires: 01/02/2024 Start: 10-03-2023 End: 01-02-2024 Comprehensive metabolic 2000 panel - Serum or Plasma COMPREHENSIVE METABOLIC PANEL Lab Routine Leg swelling Malignant neoplasm of head of pancreas (HCC) Neuropathy Acute cough Expected: 10/03/2023, Expires: 01/02/2024 [facility] Work Phone: Comment on above: Expected: 10/03/2023 , Expires: 01/02/2024 Start: 10-03-2023 End: 10-03-2023 Follow-up encounter Hematology/Oncology Comment on above: 3 week follow up and chemotx Julia // pump connecct Start: 09-25-2023 End: 12-25-2023 Cancer Ag 19-9 [Units/volume] in Serum or Plasma CA 19-9 Lab Routine Malignant neoplasm of head of pancreas (HCC) Neuropathy Expected: 09/25/2023, Expires: 12/25/2023 [facility] Comment on above: Expected: 09/25/2023 , Expires: 12/25/2023 Start: 09-25-2023 End: 12-25-2023 CBC W Auto Differential panel - Blood COMPLETE BLOOD COUNT AND DIFFERENTIAL Lab Routine Malignant neoplasm of head of pancreas (HCC) Neuropathy Expected: 09/25/2023, Expires: 12/25/2023 [facility] Comment on above: Expected: 09/25/2023 , Expires: 12/25/2023 Start: 09-25-2023 End: 12-25-2023 Comprehensive metabolic 2000 panel - Serum or Plasma COMPREHENSIVE METABOLIC PANEL Lab Routine Malignant neoplasm of head of pancreas (HCC) Neuropathy Expected: 09/25/2023, Expires: 12/25/2023 [facility] Work Phone: Comment on above: Expected: 09/25/2023 , Expires: 12/25/2023 Start: 09-15-2023 End: 09-15-2023 ambulatory 09/15/2023 11:00 AM [facility] Infusion Center Hematology/Oncology [address] [place] [address] pump disconnect Hematology/Oncology Comment on above: pump disconnect Start: 09-13-2023 End: 12-13-2023 Cancer Ag 19-9 [Units/volume] in Serum or Plasma [facility] Work Phone: Comment on above: Expected: 09/13/2023 (Approximate), Expires: 12/13/2023 Start: 09-13-2023 End: 12-13-2023 CBC W Auto Differential panel - Blood CBC + DIFF Lab Routine Malignant neoplasm of head of pancreas (HCC) Expected: 09/13/2023 (Approximate), Expires: 12/13/2023 [facility] Work Phone: Comment on above: Expected: 09/13/2023 (Approximate), Expires: 12/13/2023 Start: 09-13-2023 End: 12-13-2023 Cobalamin (Vitamin B12) [Mass/volume] in Serum or Plasma VITAMIN B12 BLOOD Lab Routine Malignant neoplasm of head of pancreas (HCC) Expected: 09/13/2023 (Approximate), Expires: 12/13/2023 [facility] Work Phone: Comment on above: Expected: 09/13/2023 (Approximate), Expires: 12/13/2023 Start: 09-13-2023 End: 12-13-2023 Comprehensive metabolic 2000 panel - Serum or Plasma COMP METABOLIC PANEL Lab Routine Malignant neoplasm of head of pancreas (HCC) Expected: 09/13/2023 (Approximate), Expires: 12/13/2023 [facility] Work Phone: Comment on above: Expected: 09/13/2023 (Approximate), Expires: 12/13/2023 Start: 09-13-2023 End: 08-22-2024 Ferritin [Mass/volume] in Serum or Plasma FERRITIN BLD Lab Routine Malignant neoplasm of head of pancreas (HCC) Expected: 09/13/2023 (Approximate), Expires: 08/22/2024 [facility] Work Phone: Comment on above: Expected: 09/13/2023 (Approximate), Expires: 08/22/2024 Start: 09-13-2023 End: 08-22-2024 Iron and Iron binding capacity panel - Serum or Plasma IRON + TIBC Lab Routine Malignant neoplasm of head of pancreas (HCC) Expected: 09/13/2023 (Approximate), Expires: 08/22/2024 [facility] Work Phone: Comment on above: Expected: 09/13/2023 (Approximate), Expires: 08/22/2024 Start: 08-16-2023 End: 11-15-2023 Cancer Ag 19-9 [Units/volume] in Serum or Plasma CA 19-9 BLD Lab Routine Malignant neoplasm of head of pancreas (HCC) Expected: 08/16/2023 (Approximate), Expires: 11/15/2023 [facility] Work Phone: Comment on above: Expected: 08/16/2023 (Approximate), Expires: 11/15/2023 Start: 08-16-2023 End: 11-15-2023 CBC W Auto Differential panel - Blood CBC + DIFF Lab Routine Malignant neoplasm of head of pancreas (HCC) Expected: 08/16/2023 (Approximate), Expires: 11/15/2023 [facility] Work Phone: Comment on above: Expected: 08/16/2023 (Approximate), Expires: 11/15/2023 Start: 08-16-2023 End: 11-15-2023 Comprehensive metabolic 2000 panel - Serum or Plasma COMP METABOLIC PANEL Lab Routine Malignant neoplasm of head of pancreas (HCC) Expected: 08/16/2023 (Approximate), Expires: 11/15/2023 [facility] Work Phone: Comment on above: Expected: 08/16/2023 (Approximate), Expires: 11/15/2023 Start: 08-16-2023 End: 08-31-2024 CT Abdomen and Pelvis W contrast IV CT ABD/PEL W IVCON Radiology Routine Malignant neoplasm of head of pancreas (HCC) Expected: 08/16/2023 (Approximate), Expires: 08/31/2024 [facility] Work Phone: Comment on above: Expected: 08/16/2023 (Approximate), Expires: 08/31/2024 Start: 08-16-2023 End: 08-31-2024 CT Chest W contrast IV CT CHEST W IVCON Radiology Routine Malignant neoplasm of head of pancreas (HCC) Expected: 08/16/2023 (Approximate), Expires: 08/31/2024 [facility] Work Phone: Comment on above: Expected: 08/16/2023 (Approximate), Expires: 08/31/2024 Start: 07-28-2023 Influenza vaccination LUNG CANCER [facility] Start: 07-27-2023 Hemoglobin A1c measurement Diabetes: Hemoglobin A1C [facility] Start: 07-26-2023 End: 10-25-2023 Cancer Ag 19-9 [Units/volume] in Serum or Plasma CA 19-9 BLD Lab Routine Malignant neoplasm of head of pancreas (HCC) Type 2 diabetes mellitus without complication, with long-term current use of insulin (HCC) Neuropathy Severe protein-calorie malnutrition (HCC) Expected: 07/26/2023, Expires: 10/25/2023 [facility] Work Phone: Comment on above: Expected: 07/26/2023 , Expires: 10/25/2023 Start: 07-26-2023 End: 10-25-2023 CBC W Auto Differential panel - Blood CBC + DIFF Lab Routine Malignant neoplasm of head of pancreas (HCC) Type 2 diabetes mellitus without complication, with long-term current use of insulin (HCC) Neuropathy Severe protein-calorie malnutrition (HCC) Expected: 07/26/2023, Expires: 10/25/2023 [facility] Work Phone: Comment on above: Expected: 07/26/2023 , Expires: 10/25/2023 Start: 07-26-2023 End: 10-25-2023 Comprehensive metabolic 2000 panel - Serum or Plasma COMP METABOLIC PANEL Lab Routine Malignant neoplasm of head of pancreas (HCC) Type 2 diabetes mellitus without complication, with long-term current use of insulin (HCC) Neuropathy Severe protein-calorie malnutrition (HCC) Expected: 07/26/2023, Expires: 10/25/2023 [facility] Work Phone: Comment on above: Expected: 07/26/2023 , Expires: 10/25/2023 Start: 07-13-2023 End: 10-12-2023 CBC W Auto Differential panel - Blood CBC + DIFF Lab Routine Malignant neoplasm of head of pancreas (HCC) Expected: 07/13/2023, Expires: 10/12/2023 [facility] Work Phone: Comment on above: Expected: 07/13/2023 , Expires: 10/12/2023 Start: 07-13-2023 End: 10-12-2023 Comprehensive metabolic 2000 panel - Serum or Plasma COMP METABOLIC PANEL Lab Routine Malignant neoplasm of head of pancreas (HCC) Expected: 07/13/2023, Expires: 10/12/2023 [facility] Work Phone: Comment on above: Expected: 07/13/2023 , Expires: 10/12/2023 Start: 05-26-2023 End: 08-25-2023 Cancer Ag 19-9 [Units/volume] in Serum or Plasma CA 19-9 BLD Lab Routine Malignant neoplasm of head of pancreas (HCC) Expected: 05/26/2023 (Approximate), Expires: 08/25/2023 [facility] Work Phone: Comment on above: Expected: 05/26/2023 (Approximate), Expires: 08/25/2023 Start: 05-26-2023 End: 08-25-2023 CBC W Auto Differential panel - Blood CBC + DIFF Lab Routine Malignant neoplasm of head of pancreas (HCC) Expected: 05/26/2023 (Approximate), Expires: 08/25/2023 [facility] Work Phone: Comment on above: Expected: 05/26/2023 (Approximate), Expires: 08/25/2023 Start: 05-26-2023 End: 08-25-2023 Comprehensive metabolic 2000 panel - Serum or Plasma COMP METABOLIC PANEL Lab Routine Malignant neoplasm of head of pancreas (HCC) Expected: 05/26/2023 (Approximate), Expires: 08/25/2023 [facility] Work Phone: Comment on above: Expected: 05/26/2023 (Approximate), Expires: 08/25/2023 Start: 05-26-2023 End: 06-03-2024 Ct abdomen & pelvis w/contrast material CT ABD/PEL W IVCON Radiology Routine Malignant neoplasm of head of pancreas (HCC) Expected: 05/26/2023 (Approximate), Expires: 06/03/2024 [facility] Work Phone: Comment on above: Expected: 05/26/2023 (Approximate), Expires: 06/03/2024 Start: 05-26-2023 End: 06-03-2024 CT CHEST W IVCON CT CHEST W IVCON Radiology Routine Malignant neoplasm of head of pancreas (HCC) Expected: 05/26/2023 (Approximate), Expires: 06/03/2024 [facility] Work Phone: Comment on above: Expected: 05/26/2023 (Approximate), Expires: 06/03/2024 Start: 05-25-2023 Influenza vaccination LUNG CANCER SC REENING [facility] Start: 05-22-2023 Advance Directive Discussion Advance Directive Discussion [facility] Start: 05-22-2023 Behavioral Health Screening Behavioral Health Screening [facility] Start: 05-22-2023 Depression Assessment Depression Ass essment [facility] Start: 05-12-2023 End: 08-11-2023 CBC W Auto Differential panel - Blood CBC + DIFF Lab Routine Malignant neoplasm of head of pancreas (HCC) Expected: 05/12/2023, Expires: 08/11/2023 [facility] Work Phone: Comment on above: Expected: 05/12/2023 , Expires: 08/11/2023 Start: 04-26-2023 End: 07-26-2023 Cancer Ag 19-9 [Units/volume] in Serum or Plasma CA 19-9 BLD Lab Routine Type 2 diabetes mellitus without complication, with long-term current use of insulin (HCC) Severe protein-calorie malnutrition (HCC) Malignant neoplasm of head of pancreas (HCC) Anemia, unspecified type Expected: 04/26/2023 (Approximate), Expires: 07/26/2023 [facility] Work Phone: Comment on above: Expected: 04/26/2023 (Approximate), Expires: 07/26/2023 Start: 04-26-2023 End: 07-26-2023 CBC W Auto Differential panel - Blood CBC + DIFF Lab Routine Type 2 diabetes mellitus without complication, with long-term current use of insulin (HCC) Severe protein-calorie malnutrition (HCC) Malignant neoplasm of head of pancreas (HCC) Anemia, unspecified type Expected: 04/26/2023 (Approximate), Expires: 07/26/2023 [facility] Work Phone: Comment on above: Expected: 04/26/2023 (Approximate), Expires: 07/26/2023 Start: 04-26-2023 End: 07-26-2023 Comprehensive metabolic 2000 panel - Serum or Plasma COMP METABOLIC PANEL Lab Routine Type 2 diabetes mellitus without complication, with long-term current use of insulin (HCC) Severe protein-calorie malnutrition (HCC) Malignant neoplasm of head of pancreas (HCC) Anemia, unspecified type Expected: 04/26/2023 (Approximate), Expires: 07/26/2023 [facility] Work Phone: Comment on above: Expected: 04/26/2023 (Approximate), Expires: 07/26/2023 Start: 03-30-2023 End: 06-29-2023 Cancer Ag 19-9 [Units/volume] in Serum or Plasma CA 19-9 BLD Lab Routine 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) Expected: 03/30/2023 (Approximate), Expires: 06/29/2023 [facility] Work Phone: Comment on above: Expected: 03/30/2023 (Approximate), Expires: 06/29/2023 Start: 03-30-2023 End: 06-29-2023 CBC W Auto Differential panel - Blood [facility] Work Phone: Comment on above: Expected: 03/30/2023 (Approximate), Expires: 06/29/2023 Expected: 03/30/2023 , Expires: 06/29/2023 Start: 03-30-2023 End: 06-29-2023 Comprehensive metabolic 2000 panel - Serum or Plasma [facility] Work Phone: Comment on above: Expected: 03/30/2023 (Approximate), Expires: 06/29/2023 Expected: 03/30/2023 , Expires: 06/29/2023 Start: 03-07-2023 Influenza vaccination LUNG CANCER [facility] Start: 03-02-2023 End: 05-02-2023 Cancer Ag 19-9 [Units/volume] in Serum or Plasma CA 19-9 BLD Lab Routine 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) Type 2 diabetes mellitus without complication, with long-term current use of insulin (HCC) LINDSEY (dyspnea on exertion) Expected: 03/02/2023, Expires: 05/02/2023 [facility] Work Phone: Comment on above: Expected: 03/02/2023 , Expires: 05/02/2023 Start: 03-02-2023 End: 05-02-2023 CBC W Auto Differential panel - Blood CBC + DIFF Lab Routine 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) Type 2 diabetes mellitus without complication, with long-term current use of insulin (HCC) LINDESY (dyspnea on exertion) Expected: 03/02/2023, Expires: 05/02/2023 [facility] Work Phone: Comment on above: Expected: 03/02/2023 , Expires: 05/02/2023 Start: 03-02-2023 End: 05-02-2023 Comprehensive metabolic 2000 panel - Serum or Plasma COMP METABOLIC PANEL Lab Routine 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) Type 2 diabetes mellitus without complication, with long-term current use of insulin (HCC) LINDSEY (dyspnea on exertion) Expected: 03/02/2023, Expires: 05/02/2023 [facility] Work Phone: Comment on above: Expected: 03/02/2023 , Expires: 05/02/2023 Start: 03-01-2023 End: 05-01-2023 Cancer Ag 19-9 [Units/volume] in Serum or Plasma [facility] Work Phone: Comment on above: Expected: 03/01/2023 (Approximate), Expires: 05/01/2023 Start: 03-01-2023 End: 05-01-2023 CBC W Auto Differential panel - Blood CBC + DIFF Lab Routine 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) Expected: 03/01/2023 (Approximate), Expires: 05/01/2023 [facility] Work Phone: Comment on above: Expected: 03/01/2023 (Approximate), Expires: 05/01/2023 Start: 03-01-2023 End: 05-01-2023 Comprehensive metabolic 2000 panel - Serum or Plasma [facility] Work Phone: Comment on above: Expected: 03/01/2023 (Approximate), Expires: 05/01/2023 Start: 02-08-2023 End: 04-10-2023 CBC W Auto Differential panel - Blood CBC + DIFF Lab Routine 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) Expected: 02/08/2023 (Approximate), Expires: 04/10/2023 [facility] Work Phone: Comment on above: Expected: 02/08/2023 (Approximate), Expires: 04/10/2023 Start: 02-08-2023 End: 04-10-2023 Comprehensive metabolic 2000 panel - Serum or Plasma COMP METABOLIC PANEL Lab Routine 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) Expected: 02/08/2023 (Approximate), Expires: 04/10/2023 [facility] Work Phone: Comment on above: Expected: 02/08/2023 (Approximate), Expires: 04/10/2023 Start: 02-04-2023 End: 04-06-2023 Cancer Ag 19-9 [Units/volume] in Serum or Plasma CA 19-9 BLD Lab Routine 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) Expected: 02/04/2023 (Approximate), Expires: 04/06/2023 [facility] Work Phone: Comment on above: Expected: 02/04/2023 (Approximate), Expires: 04/06/2023 Start: 02-04-2023 End: 04-06-2023 CBC W Auto Differential panel - Blood CBC + DIFF Lab Routine 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) Expected: 02/04/2023 (Approximate), Expires: 04/06/2023 [facility] Work Phone: Comment on above: Expected: 02/04/2023 (Approximate), Expires: 04/06/2023 Start: 02-04-2023 End: 04-06-2023 Comprehensive metabolic 2000 panel - Serum or Plasma COMP METABOLIC PANEL Lab Routine 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) Expected: 02/04/2023 (Approximate), Expires: 04/06/2023 [facility] Work Phone: Comment on above: Expected: 02/04/2023 (Approximate), Expires: 04/06/2023 Start: 01-20-[address] [facility] Start: 12-14-2022 End: 02-13-2023 Cancer Ag 19-9 [Units/volume] in Serum or Plasma [facility] Work Phone: Comment on above: Expected: 12/14/2022 (Approximate), Expires: 02/13/2023 Start: 12-14-2022 End: 02-13-2023 CBC W Auto Differential panel - Blood CBC + DIFF Lab Routine Malignant neoplasm of head of pancreas (HCC) Expected: 12/14/2022 (Approximate), Expires: 02/13/2023 [facility] Work Phone: Comment on above: Expected: 12/14/2022 (Approximate), Expires: 02/13/2023 Start: 12-14-2022 End: 02-13-2023 Comprehensive metabolic 2000 panel - Serum or Plasma COMP METABOLIC PANEL Lab Routine Malignant neoplasm of head of pancreas (HCC) Expected: 12/14/2022 (Approximate), Expires: 02/13/2023 [facility] Work Phone: Comment on above: Expected: 12/14/2022 (Approximate), Expires: 02/13/2023 Start: 12-07-2022 End: 02-06-2023 CBC W Auto Differential panel - Blood CBC + DIFF Lab Routine Malignant neoplasm of head of pancreas (HCC) Expected: 12/07/2022, Expires: 02/06/2023 [facility] Work Phone: Comment on above: Expected: 12/07/2022 , Expires: 02/06/2023 Start: 12-05-2022 End: 02-04-2023 Cancer Ag 19-9 [Units/volume] in Serum or Plasma CA 19-9 BLD Lab Routine Malignant neoplasm of head of pancreas (HCC) Anemia, unspecified type Type 2 diabetes mellitus without complication, with long-term current use of insulin (HCC) Expected: 12/05/2022, Expires: 02/04/2023 [facility] Work Phone: Comment on above: Expected: 12/05/2022 , Expires: 02/04/2023 Start: 12-05-2022 End: 02-04-2023 CBC W Auto Differential panel - Blood [facility] Work Phone: Comment on above: Expected: 12/05/2022 , Expires: 02/04/2023 Start: 12-05-2022 End: 02-04-2023 Comprehensive metabolic 2000 panel - Serum or Plasma COMP METABOLIC PANEL Lab Routine Malignant neoplasm of head of pancreas (HCC) Anemia, unspecified type Type 2 diabetes mellitus without complication, with long-term current use of insulin (HCC) Expected: 12/05/2022, Expires: 02/04/2023 [facility] Work Phone: Comment on above: Expected: 12/05/2022 , Expires: 02/04/2023 Start: 11-23-2022 End: 01-23-2023 CBC W Auto Differential panel - Blood CBC + DIFF Lab Routine Malignant neoplasm of head of pancreas (HCC) Expected: 11/23/2022, Expires: 01/23/2023 [facility] Work Phone: Comment on above: Expected: 11/23/2022 , Expires: 01/23/2023 Start: 11-23-2022 End: 01-23-2023 Comprehensive metabolic 2000 panel - Serum or Plasma COMP METABOLIC PANEL Lab Routine Malignant neoplasm of head of pancreas (HCC) Expected: 11/23/2022, Expires: 01/23/2023 [facility] Work Phone: Comment on above: Expected: 11/23/2022 , Expires: 01/23/2023 Start: 11-10-2022 End: 01-10-2023 Cancer Ag 19-9 [Units/volume] in Serum or Plasma [facility] Work Phone: Comment on above: Expected: 11/10/2022 (Approximate), Expires: 01/10/2023 Start: 11-10-2022 End: 01-10-2023 CBC W Auto Differential panel - Blood CBC + DIFF Lab Routine Malignant neoplasm of head of pancreas (HCC) Expected: 11/10/2022 (Approximate), Expires: 01/10/2023 [facility] Work Phone: Comment on above: Expected: 11/10/2022 (Approximate), Expires: 01/10/2023 Start: 11-10-2022 End: 01-10-2023 Comprehensive metabolic 2000 panel - Serum or Plasma COMP METABOLIC PANEL Lab Routine Malignant neoplasm of head of pancreas (HCC) Expected: 11/10/2022 (Approximate), Expires: 01/10/2023 [facility] Work Phone: Comment on above: Expected: 11/10/2022 (Approximate), Expires: 01/10/2023 Start: 11-10-2022 End: 10-29-2023 Ct abdomen & pelvis w/contrast material CT ABD/PEL W IVCON Radiology Routine Malignant neoplasm of head of pancreas (HCC) Expected: 11/10/2022 (Approximate), Expires: 10/29/2023 [facility] Work Phone: Comment on above: Expected: 11/10/2022 (Approximate), Expires: 10/29/2023 Start: 11-10-2022 End: 10-29-2023 CT CHEST W IVCON CT CHEST W IVCON Radiology Routine Malignant neoplasm of head of pancreas (HCC) Expected: 11/10/2022 (Approximate), Expires: 10/29/2023 [facility] Work Phone: Comment on above: Expected: 11/10/2022 (Approximate), Expires: 10/29/2023 Start: 09-13-2022 End: 11-13-2022 Cancer Ag 19-9 [Units/volume] in Serum or Plasma CA 19-9 BLD Lab Routine Malignant neoplasm of head of pancreas (HCC) Expected: 09/13/2022 (Approximate), Expires: 11/13/2022 [facility] Work Phone: Comment on above: Expected: 09/13/2022 (Approximate), Expires: 11/13/2022 Start: 09-13-2022 End: 11-13-2022 CBC W Auto Differential panel - Blood CBC + DIFF Lab Routine Malignant neoplasm of head of pancreas (HCC) Expected: 09/13/2022 (Approximate), Expires: 11/13/2022 [facility] Work Phone: Comment on above: Expected: 09/13/2022 (Approximate), Expires: 11/13/2022 Start: 09-13-2022 End: 11-13-2022 Comprehensive metabolic 2000 panel - Serum or Plasma COMP METABOLIC PANEL Lab Routine Malignant neoplasm of head of pancreas (HCC) Expected: 09/13/2022 (Approximate), Expires: 11/13/2022 [facility] Work Phone: Comment on above: Expected: 09/13/2022 (Approximate), Expires: 11/13/2022 Start: 08-03-2022 End: 10-03-2022 Cancer Ag 19-9 [Units/volume] in Serum or Plasma CA 19-9 BLD Lab Routine Malignant neoplasm of head of pancreas (HCC) Expected: 08/03/2022 (Approximate), Expires: 10/03/2022 [facility] Work Phone: Comment on above: Expected: 08/03/2022 (Approximate), Expires: 10/03/2022 Start: 08-03-2022 End: 10-03-2022 CBC W Auto Differential panel - Blood CBC + DIFF Lab Routine Malignant neoplasm of head of pancreas (HCC) Expected: 08/03/2022 (Approximate), Expires: 10/03/2022 [facility] Work Phone: Comment on above: Expected: 08/03/2022 (Approximate), Expires: 10/03/2022 Start: 08-03-2022 End: 10-03-2022 Comprehensive metabolic 2000 panel - Serum or Plasma COMP METABOLIC PANEL Lab Routine Malignant neoplasm of head of pancreas (HCC) Expected: 08/03/2022 (Approximate), Expires: 10/03/2022 [facility] Work Phone: Comment on above: Expected: 08/03/2022 (Approximate), Expires: 10/03/2022 Start: 08-03-2022 End: 07-29-2023 Ct abdomen & pelvis w/contrast material CT ABD/PEL W IVCON Radiology Routine Malignant neoplasm of head of pancreas (HCC) Expected: 08/03/2022, Expires: 07/29/2023 [facility] Work Phone: Comment on above: Expected: 08/03/2022 , Expires: 07/29/2023 Start: 08-03-2022 End: 07-29-2023 CT CHEST W IVCON CT CHEST W IVCON Radiology Routine Malignant neoplasm of head of pancreas (HCC) Expected: 08/03/2022, Expires: 07/29/2023 [facility] Work Phone: Comment on above: Expected: 08/03/2022 , Expires: 07/29/2023 Start: 06-01-2022 End: 08-01-2022 Cancer Ag 19-9 [Units/volume] in Serum or Plasma [facility] Work Phone: Comment on above: Expected: 06/01/2022 (Approximate), Expires: 08/01/2022 Start: 06-01-2022 End: 08-01-2022 CBC W Auto Differential panel - Blood CBC + DIFF Lab Routine Malignant neoplasm of head of pancreas (HCC) Expected: 06/01/2022 (Approximate), Expires: 08/01/2022 [facility] Work Phone: Comment on above: Expected: 06/01/2022 (Approximate), Expires: 08/01/2022 Start: 06-01-2022 End: 08-01-2022 Comprehensive metabolic 2000 panel - Serum or Plasma COMP METABOLIC PANEL Lab Routine Malignant neoplasm of head of pancreas (HCC) Expected: 06/01/2022 (Approximate), Expires: 08/01/2022 [facility] Work Phone: Comment on above: Expected: 06/01/2022 (Approximate), Expires: 08/01/2022 Start: 06-01-2022 End: 06-10-2023 Ct abdomen & pelvis w/contrast material CT ABD/PEL W IVCON Radiology Routine Malignant neoplasm of head of pancreas (HCC) Expected: 06/01/2022, Expires: 06/10/2023 [facility] Work Phone: Comment on above: Expected: 06/01/2022 , Expires: 06/10/2023 Start: 06-01-2022 End: 06-10-2023 CT CHEST W IVCON CT CHEST W IVCON Radiology Routine Malignant neoplasm of head of pancreas (HCC) Expected: 06/01/2022, Expires: 06/10/2023 [facility] Work Phone: Comment on above: Expected: 06/01/2022 , Expires: 06/10/2023 Start: 05-22-2022 ADVANCE DIRECTIVE DISCUSSION ADVANCE DIRECTIVE DISCUSSION [facility] Start: 05-22-2022 DEPRESSION ASSESSMENT DEPRESSION ASS ESSMENT [facility] Start: 05-13-2022 End: 07-13-2022 Cancer Ag 19-9 [Units/volume] in Serum or Plasma CA 19-9 BLD Lab Routine Malignant neoplasm of head of pancreas (HCC) Anemia, unspecified type Expected: 05/13/2022, Expires: 07/13/2022 [facility] Work Phone: Comment on above: Expected: 05/13/2022 , Expires: 07/13/2022 Start: 05-13-2022 End: 07-13-2022 CBC W Auto Differential panel - Blood CBC + DIFF Lab Routine Malignant neoplasm of head of pancreas (HCC) Anemia, unspecified type Expected: 05/13/2022, Expires: 07/13/2022 [facility] Work Phone: Comment on above: Expected: 05/13/2022 , Expires: 07/13/2022 Start: 05-13-2022 End: 07-13-2022 Comprehensive metabolic 2000 panel - Serum or Plasma COMP METABOLIC PANEL Lab Routine Malignant neoplasm of head of pancreas (HCC) Anemia, unspecified type Expected: 05/13/2022, Expires: 07/13/2022 [facility] Work Phone: Comment on above: Expected: 05/13/2022 , Expires: 07/13/2022 Start: 05-11-2022 End: 07-11-2022 CREATININE BLD CREATININE BLD Lab Routine Malignant neoplasm of head of pancreas (HCC) Expected: 05/11/2022, Expires: 07/11/2022 [facility] Work Phone: Comment on above: Expected: 05/11/2022 , Expires: 07/11/2022 Start: 04-06-2022 End: 06-06-2022 Cancer Ag 19-9 [Units/volume] in Serum or Plasma CA 19-9 BLD Lab Routine Malignant neoplasm of head of pancreas (HCC) Expected: 04/06/2022, Expires: 06/06/2022 [facility] Work Phone: Comment on above: Expected: 04/06/2022 , Expires: 06/06/2022 Start: 04-06-2022 End: 06-06-2022 CBC W Auto Differential panel - Blood [facility] Work Phone: Comment on above: Expected: 04/06/2022 , Expires: 06/06/2022 Start: 04-06-2022 End: 06-06-2022 Comprehensive metabolic 2000 panel - Serum or Plasma COMP METABOLIC PANEL Lab Routine Malignant neoplasm of head of pancreas (HCC) Expected: 04/06/2022, Expires: 06/06/2022 [facility] Work Phone: Comment on above: Expected: 04/06/2022 , Expires: 06/06/2022 Start: 03-30-2022 End: 05-30-2022 Cancer Ag 19-9 [Units/volume] in Serum or Plasma [facility] Work Phone: Comment on above: Expected: 03/30/2022 , Expires: 05/30/2022 Start: 03-30-2022 End: 05-30-2022 CBC W Auto Differential panel - Blood CBC + DIFF Lab Routine Malignant neoplasm of head of pancreas (HCC) Expected: 03/30/2022, Expires: 05/30/2022 [facility] Work Phone: Comment on above: Expected: 03/30/2022 , Expires: 05/30/2022 Start: 03-30-2022 End: 05-30-2022 Cobalamin (Vitamin B12) [Mass/volume] in Serum or Plasma [facility] Work Phone: Comment on above: Expected: 03/30/2022 , Expires: 05/30/2022 Start: 03-30-2022 End: 05-30-2022 Comprehensive metabolic 2000 panel - Serum or Plasma COMP METABOLIC PANEL Lab Routine Malignant neoplasm of head of pancreas (HCC) Expected: 03/30/2022, Expires: 05/30/2022 [facility] Work Phone: Comment on above: Expected: 03/30/2022 , Expires: 05/30/2022 Start: 03-23-2022 End: 05-23-2022 CBC W Auto Differential panel - Blood CBC + DIFF Lab Routine Malignant neoplasm of head of pancreas (HCC) Expected: 03/23/2022 (Approximate), Expires: 05/23/2022 [facility] Work Phone: Comment on above: Expected: 03/23/2022 (Approximate), Expires: 05/23/2022 Start: 03-23-2022 End: 05-23-2022 Comprehensive metabolic 2000 panel - Serum or Plasma COMP METABOLIC PANEL Lab Routine Malignant neoplasm of head of pancreas (HCC) Expected: 03/23/2022 (Approximate), Expires: 05/23/2022 [facility] Work Phone: Comment on above: Expected: 03/23/2022 (Approximate), Expires: 05/23/2022 Start: 03-16-2022 End: 05-16-2022 CBC W Auto Differential panel - Blood CBC + DIFF Lab Routine Malignant neoplasm of head of pancreas (HCC) Expected: 03/16/2022 (Approximate), Expires: 05/16/2022 [facility] Work Phone: Comment on above: Expected: 03/16/2022 (Approximate), Expires: 05/16/2022 Start: 03-16-2022 End: 05-16-2022 Comprehensive metabolic 2000 panel - Serum or Plasma COMP METABOLIC PANEL Lab Routine Malignant neoplasm of head of pancreas (HCC) Expected: 03/16/2022 (Approximate), Expires: 05/16/2022 [facility] Work Phone: Comment on above: Expected: 03/16/2022 (Approximate), Expires: 05/16/2022 Start: 03-16-2022 End: 05-16-2022 Ferritin [Mass/volume] in Serum or Plasma [facility] Work Phone: Comment on above: Expected: 03/16/2022 , Expires: 05/16/2022 Start: 03-16-2022 End: 05-16-2022 Folate [Mass/volume] in Serum or Plasma [facility] Work Phone: Comment on above: Expected: 03/16/2022 , Expires: 05/16/2022 Start: 03-16-2022 End: 05-16-2022 Iron and Iron binding capacity panel - Serum or Plasma [facility] Work Phone: Comment on above: Expected: 03/16/2022 , Expires: 05/16/2022 Start: 03-16-2022 End: 05-16-2022 MISC SEND OUT TST 1 [facility] Work Phone: Comment on above: Expected: 03/16/2022 , Expires: 05/16/2022 Start: 03-08-2022 End: 05-08-2022 Cancer Ag 19-9 [Units/volume] in Serum or Plasma CA 19-9 BLD Lab Routine Malignant neoplasm of head of pancreas (HCC) Expected: 03/08/2022 (Approximate), Expires: 05/08/2022 [facility] Work Phone: Comment on above: Expected: 03/08/2022 (Approximate), Expires: 05/08/2022 Start: 03-08-2022 End: 05-08-2022 CBC W Auto Differential panel - Blood CBC + DIFF Lab Routine Malignant neoplasm of head of pancreas (HCC) Expected: 03/08/2022 (Approximate), Expires: 05/08/2022 [facility] Work Phone: Comment on above: Expected: 03/08/2022 (Approximate), Expires: 05/08/2022 Start: 03-08-2022 End: 05-08-2022 Comprehensive metabolic 2000 panel - Serum or Plasma COMP METABOLIC PANEL Lab Routine Malignant neoplasm of head of pancreas (HCC) Expected: 03/08/2022 (Approximate), Expires: 05/08/2022 [facility] Work Phone: Comment on above: Expected: 03/08/2022 (Approximate), Expires: 05/08/2022 Start: 03-08-2022 End: 05-08-2022 MISC SEND OUT TST 1 MISC SEND OUT TST 1 Lab Routine Malignant neoplasm of head of pancreas (HCC) Expected: 03/08/2022 (Approximate), Expires: 05/08/2022 [facility] Work Phone: Comment on above: Expected: 03/08/2022 (Approximate), Expires: 05/08/2022 Start: 03-01-2022 End: 03-24-2023 CT CHEST W IVCON CT CHEST W IVCON Radiology Routine Malignant neoplasm of head of pancreas (HCC) Expected: 03/01/2022, Expires: 03/24/2023 [facility] Work Phone: Comment on above: Expected: 03/01/2022 , Expires: 03/24/2023 Start: 02-23-2022 End: 04-25-2022 PT panel - Platelet poor plasma by Coagulation assay PROTHROMBIN TIME/PT Lab Routine Malignant neoplasm of pancreas, unspecified location of malignancy (HCC) Expected: 02/23/2022, Expires: 04/25/2022 [facility] Work Phone: Comment on above: Expected: 02/23/2022 , Expires: 04/25/2022 Start: 01-20-[address] [facility] Start: 12-04-2021 Colonoscopy COLONOSCOPY [facility] Start: 12-04-2021 COLORECTAL CANCER SCREENING COLORECTAL CANCER SCREENING [facility] Start: 12-04-2021 Screening for malign ant neoplasm of colon [facility] Start: 05-22-2021 ADVANCE DIRECTIVE DISCUSSION ADVANCE DIRECTIVE DISCUSSION [facility] Start: 05-22-2021 DEPRESSION ASSESSMENT DEPRESSION ASS ESSMENT [facility] Start: 03-06-2021 Influenza vaccination LUNG CANCER SC REENING [facility] Start: 03-02-2021 Urine screening for protein Diabetes: Urine Protein Screening [facility] Start: 02-21-2021 COVID-19 VACCINE (2 - Booster for [place] series) COVID-19 VACCINE (2 - Booster for [place] series) [facility] Start: 01-24-2021 COVID-19 VACCINE (2 - [place] risk series) COVID-19 VACCINE (2 - [place] risk series) [facility] Start: 01-20-2021 Influenza vaccination INFLUENZA (#1) [facility] Start: 11-23-2020 Hepatitis B surface antibody level LDL Cholesterol [facility] Start: 03-23-2020 Annual Wellness Visi t (AWV) Annual Wellness Visit (AWV) [facility] [place] Start: 03-18-2020 End: 03-18-2020 Office Visit 03/18/2020 Office Visit Oncology Dwayne Moy MD [address] [place] [address] [facility] Start: 01-21-2020 Influenza vaccination Flu vaccine (# 1) [place], [place] Start: 2016 Pneumococcal 65+ yea rs Vaccine (1 of 1 - PPSV23) Pneumococcal 65+ years Vaccine (1 of 1 - PPSV23) [place] Start: 2016 PNEUMOCOCCAL: 65+ (1 - PCV) PNEUMOCOCCAL: 65+ (1 - PCV) [facility] Start: 2016 PNEUMOVAX AGE 65 AND OVER WITH 5YR LOOKBACK (#1) PNEUMOVAX AGE 65 AND OVER WITH 5YR LOOKBACK (#1) [facility] Start: 2011 RSV Vaccine (1 - 1-d ose 60+ series) RSV Vaccine (1 - 1-dose 60+ series) [facility] Start: 2011 RSV Vaccine (1 - Ris k 60-74 years 1-dose series) RSV Vaccine (1 - Risk 60-74 years 1-dose series) [facility] Start: 2001 Screening for malign ant neoplasm of colon Colon cancer screen colonoscopy [place], [place] Start: 2001 Shingles Vaccine (1 of 2) Shingles Vaccine (1 of 2) [place] Start: 2001 SHINGRIX VACCINE (1 of 2) SHINGRIX VACCINE (1 of 2) [facility] Start: 1996 COLOGUARD (FIT-DNA) COLOGUARD (FIT-D NA) [facility] Start: [address] COLONOGRAPHY [facility] Start: 1996 FECAL OCCULT BLOOD FECAL OCCULT BLOO D [facility] Start: 1996 Screening for malign ant neoplasm of colon [facility] Start: 1996 SIGMOIDOSCOPY SIGMOIDOSCOPY [facility] Start: 1991 Diabetes screen Diabetes screen [place], [place] Start: 1991 Lipid panel Lipid screen [place], [place] Start: 1970 DTaP/Tdap/Td vaccine (1 - Tdap) DTaP/Tdap/Td vaccine (1 - Tdap) [place], [place] Start: 1970 SHINGRIX VACCINE (1 of 2) SHINGRIX VACCINE (1 of 2) [facility] Start: 1970 Urine microalbumin profile DTAP,TDAP,TD (1 - Tdap) [facility] Start: 1969 Annual PCP Team [employer] jace Disease Visit Annual PCP Team Chronic Disease Visit [facility] Start: 1969 Anxiety Screening Anxiety Screening [facility] Start: 1969 Depression Screening Depression Scre ening [facility] Start: 1969 HEPATITIS C SCREENING HEPATITIS C [facility] Start: 1969 Hepatitis C screening Hepatitis C [facility] Start: 1963 Adult depression screening assessment DEPRESSION SCREENING [facility] Start: 1961 Diabetic foot examination Diabetic Foot Exam [facility] Start: 1961 Glaucoma screening [facility] Start: 1961 Hepatitis B screening Urine Albumin:Creatinine Ratio [facility] Start: 1957 Pneumococcal Vaccine : 65+ (1 - PCV) Pneumococcal Vaccine: 65+ (1 - PCV) [facility] Start: 1957 Pneumococcal Vaccine : 65+ (1 of 2 - PCV) Pneumococcal Vaccine: 65+ (1 of 2 - PCV) [facility] Start: 1957 PNEUMOCOCCAL: 65+ (1 - PCV) PNEUMOCOCCAL: 65+ (1 - PCV) [facility] Start: 1951 Abdominal aortic aneurysm screening [facility] Start: 1951 ABDOMINAL AORTIC ANEURYSM SCREENING ABDOMINAL AORTIC ANEURYSM SCREENING [facility] Start: 1951 Hepatitis C screening Hepatitis C [place], [place] Start: 1951 Screening for malign ant neoplasm of colon [facility] Cancer Ag 19-9 [Units/volume] in Serum or Plasma CA 19-9 BLD Lab Routine Malignant neoplasm of head of pancreas (HCC) 04/20/2022 9:46 AM EST [facility] Work Phone: Cancer Ag 19-9 [Units/volume] in Serum or Plasma CA 19-9 BLD Lab Routine Malignant neoplasm of head of pancreas (HCC) Anemia, unspecified type 05/11/2022 8:59 AM EST [facility] Work Phone: Cancer Ag 19-9 [Units/volume] in Serum or Plasma CA 19-9 BLD Lab Routine Malignant neoplasm of head of pancreas (HCC) 06/29/2022 10:17 AM [facility] [employer] Work Phone: Cancer Ag 19-9 [Units/volume] in Serum or Plasma CA 19-9 BLD Lab Routine Malignant neoplasm of head of pancreas (HCC) 08/02/2022 10:21 AM [facility] Work Phone: Cancer Ag 19-9 [Units/volume] in Serum or Plasma CA 19-9 BLD Lab Routine Malignant neoplasm of head of pancreas (HCC) 09/29/2022 10:18 AM [facility] Work Phone: Cancer Ag 19-9 [Units/volume] in Serum or Plasma CA 19-9 BLD Lab Routine 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) 02/01/2023 11:18 AM [facility] Work Phone: Cancer Ag 19-9 [Units/volume] in Serum or Plasma CA 19-9 BLD Lab Routine 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) Type 2 diabetes mellitus without complication, with long-term current use of insulin (HCC) LINDSEY (dyspnea on exertion) 04/05/2023 1:44 PM [employer] Work Phone: Cancer Ag 19-9 [Units/volume] in Serum or Plasma CA 19-9 BLD Lab Routine Type 2 diabetes mellitus without complication, with long-term current use of insulin (HCC) Severe protein-calorie malnutrition (HCC) Malignant neoplasm of head of pancreas (HCC) Anemia, unspecified type 05/05/2023 1:13 PM [employer] Work Phone: Cancer Ag 19-9 [Units/volume] in Serum or Plasma CA 19-9 BLD Lab Routine Malignant neoplasm of head of pancreas (HCC) 07/05/2023 10:33 AM [employer] Work Phone: Cancer Ag 19-9 [Units/volume] in Serum or Plasma CA 19-9 BLD Lab Routine Malignant neoplasm of head of pancreas (HCC) Type 2 diabetes mellitus without complication, with long-term current use of insulin (HCC) Neuropathy Severe protein-calorie malnutrition (HCC) 08/02/2023 10:23 AM [facility] Work Phone: Cancer Ag 19-9 [Units/volume] in Serum or Plasma CA 19-9 BLD Lab Routine Malignant neoplasm of head of pancreas (HCC) 08/23/2023 10:51 AM [facility] Work Phone: Cancer Ag 19-9 [Units/volume] in Serum or Plasma CA 19-9 Lab Routine Malignant neoplasm of head of pancreas (HCC) Neuropathy 10/03/2023 11:18 AM [facility] Work Phone: Cancer Ag 19-9 [Units/volume] in Serum or Plasma CA 19-9 Lab Routine Malignant neoplasm of head of pancreas (HCC) 10/31/2023 10:33 AM [facility] Work Phone: Cancer Ag 19-9 [Units/volume] in Serum or Plasma CA 19-9 Lab Routine Malignant neoplasm of head of pancreas (HCC) 11/20/2023 8:09 AM [facility] Work Phone: Cancer Ag 19-9 [Units/volume] in Serum or Plasma CA 19-9 Lab Routine Malignant neoplasm of head of pancreas (HCC) 02/12/2024 8:46 AM [facility] Work Phone: Clostridioides diffi cile toxin genes [Presence] in Stool by MIRTHA with probe detection C. DIFFICILE PCR Lab Routine Malignant neoplasm of head of pancreas (HCC) Diarrhea, unspecified type Ordered: 03/07/2022 [facility] Work Phone: Comment on above: Ordered: 03/07/2022 End: 01-20-2024 CT CHEST W IVCON PE CT CHEST W IVCON PE Radiology STAT Chest pain, unspecified type LINDSEY (dyspnea on exertion) 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) Anemia, unspecified type Type 2 diabetes mellitus without complication, with long-term current use of insulin (HCC) 1 Occurrences starting 12/21/2022 until 01/20/2024 [facility] Work Phone: Comment on above: 1 Occurrences starti ng 12/21/2022 until 01/20/2024 IR PORTOCATH PLACEMENT IR PORTOC ATH PLACEMENT Radiology Routine Malignant neoplasm of head of pancreas (HCC) Ordered: 02/22/2022 [facility] Work Phone: Comment on above: Ordered: 02/22/2022 Patient Education Head injury in adults [facility] Work Phone: Patient referral [facility] Work Phone: REFERRAL FOR ADDITIO NAL BIOMARKER AND MOLECULAR TESTING REFERRAL FOR ADDITIONAL BIOMARKER AND MOLECULAR TESTING Lab Routine Malignant neoplasm of head of pancreas (HCC) 02/27/2022 10:40 PM EDT [facility] Work Phone: RFA Portal vein View s W contrast IV IR PORTAL VENOGRAM Radiology STAT Central line complication, initial encounter Ordered: 11/29/2023 [facility] Work Phone: Comment on above: Ordered: 11/29/2023 UA DIP, URINE (POC) UA DIP, URIN E (POC) Lab Routine Malignant neoplasm of head of pancreas (HCC) Frequency of urination Ordered: 10/11/2023 [facility] Comment on above: Ordered: 10/11/2023 End: 10-02-2024 US Lower extremity veins - bilateral US LEG VEIN DVT [facility] Vascular Lab STAT Leg swelling 1 Occurrences starting 10/03/2023 until 10/02/2024 [facility] Comment on above: 1 Occurrences starti ng 10/03/2023 until 10/02/2024 End: 12-21-2024 XR Chest Single view XR CHEST 1V FRONTAL PORT Radiology Routine Malignant neoplasm of head of pancreas (HCC) Central line complication, initial encounter 1 Occurrences starting 11/22/2023 until 12/21/2024 [facility] Work Phone: Comment on above: 1 Occurrences starti ng 11/22/2023 until 12/[facility] Immun[facility] Immunization Date Immunization Notes Care Provider Fa cility 12-15-2022 tetanus toxoid, redu pascual diphtheria toxoid, and acellular pertussis vaccine, adsorbed II Giovanni Salinas Work Phone: [facility] 12-27-2020 COVID-19 vaccine ([place]) Eyad Manriquez MD Work Phone: [facility] Payers Date Payer Category Payer Self-pay [id number] 2019 Private Health Insurance AETNA A ETNA MEDICARE SUPPLEMENT [id number] 2019-Present [phone] [address] [address] [place] [address] Indemnity [id number] .[id number] 2019 Private Health Insurance [id number] .[id number] 2016 Medicare MEDICARE MEDICAR E A AND B [id number] 2016-Present [phone] [address] [address] [place] [address] Medicare [id number] .[id number] 2016 Medicare [id number] 1.13.159 .2.7.3.990030.315 1959 Medicare [id number] .2.7.3.213506.315 1959 Private Health Insurance CLI [id number] [id number] .[id number] 1951 Unknown [id number] 2.16.840.1.244453.3.579 .2.173 1951 Unknown [id number] 2.16.840.1.400975.3.579 .2.173 1951 Unknown [id number] 2.16.840.1.620516.3.579 .2.593 1951 Unknown [id number] 2.16.840.1.443875.3.579 .2.593 1951 Unknown [id number] 2.16.840.1.754243.3.579 .2.593 1951 Unknown [id number] 2.16.840.1.078450.3.579 .2.593 1951 Unknown [id number] 2.16.840.1.021370.3.579 .2.593 1951 Unknown [id number] 2.16.840.1.888515.3.579 .2.593 1951 Unknown [id number] 2.16.840.1.405051.3.579 .2.593 1951 Unknown [id number] 2.16.840.1.212906.3.579 .2.593 1951 Unknown [id number] 2.16.840.1.142498.3.579 .2.593 1951 Unknown [id number] 2.16.840.1.803370.3.579 .2.593 1951 Unknown [id number] 2.16.840.1.347113.3.579 .2.593 1951 Unknown [id number] 2.16.840.1.499994.3.579 .2.593 1951 Unknown [id number] 2.16.840.1.988887.3.579 .2.593 1951 Unknown [id number] 2.16.840.1.905196.3.579 .2.593 1951 Unknown [id number] 2.16.840.1.069015.3.579 .2.1259 1950 Unknown [id number] 2.16.840.1.592962.3.579 .2.1259 Unknown [id number] 2.16.840.1.559612.3.579 .2.531 Social History Date Type Detail Facility Start: 03-09-2020 Tobacco smoking stat us [facility] Unknown if ever smoked [place], [place] Start: 1950 Sex Assigned At Not on file M [place] Start: 03-18-2020 End: 03-09-2022 Tobacco smoking status NHIS Former smoker [facility] Start: 03-18-1977 End: 11-20-2019 History of tobacco use Current smoker [place], [place] Start: 03-18-1977 End: 11-20-2019 History of tobacco use Cigarette Smoker [place] Start: 03-18-2020 End: 02-12-2024 [facility] Start: 05-08-2020 End: 09-29-2022 Cigarettes smoked current (pack per day) - Reported 1 [facility] Start: 05-08-2020 End: 03-09-2022 Tobacco use and exposure Smokeless tobacco non-user [facility] Start: 03-24-2020 History SDOH Financial 5 [facility] Start: 03-24-2020 History SDOH Food Worry 1 [facility] Start: 03-24-2020 History SDOH Transpo rt Med 2 [facility] Start: 1950 Sex Assigned At Male [facility] Start: 02-05-2022 End: 04-20-2022 Exposure to SARS-CoV-2 (event) Not sure [facility] History of tobacco use Passive smoker [facility] Start: 09-29-2022 End: 11-10-2022 Tobacco use panel [facility] How hard is it for y ou to pay for the very basics like food, housing, medical care, and heating Not hard at all [facility] (I/We) worried wheth er (my/our) food would run out before (I/we) got money to buy more. Never true [facility] Start: 01-13-2021 Gender identity Identifies as male gender (finding) [facility] Within the last year , have you been afraid of your partner or ex-partner? No [facility] Are you now , , , , never or living with a partner? [facility] How often to you hav e a drink containing alcohol? Never [facility] Do you feel stress - tense, restless, nervous, or anxious, or unable to sleep at night because your mind is troubled all the time - these days [OSQ] Only a little [facility] Medical Equipment Procedure Code Equipment Code Equipment Origin al Text Equipment Identifier Dates [id number] Start: 10-26-2022 End: 06-08-2023 Comment on above: use to test BLOOD MCCARTHY GAR TWICE DAILY INJECT ONCE DAILY Tray Powerline Surecuff 5fr Polyurethane Catheter 1 Lumen Microintroducer - [id number] Start: 03-30-2020 Tray Powerline Surecuff 5fr Polyurethane Catheter 1 Lumen Microintroducer - [id number] Start: 12-15-2020 Mesh Surgipro Me dium Clear Polypropylene 2cm Surgical Nonabsorbable Plug - [id number] Start: 01-06-2021 Stent Eureka Viabi l 8mm Metal 80mm 200cm Endoprosthesis No Hole Full Cover - [id number] Start: 2021 [id number] Start: 03-02-2022 Comment on above: Description: Port in serted at [facility]; Saline only flushes 1 each by Other route in the morning and 1 each before bedtime. [id number] Start: 12-02-2022 Use as instructed [id number] Start: 11-17-2022 End: 11-17-2023 use to test BLOO D SUGAR TWICE DAILY [id number] Start: 10-26-2022 End: 06-08-2023 INJECT ONCE DAILY [id number] Start: 10-26-2022 End: 06-08-2023 use to test BLOO D SUGAR TWICE DAILY [id number] Start: 10-26-2022 End: 06-08-2023 Power Port 8f Si ngle Lumen Venous [id number] Start: 12-29-2023 USE DIRECTED to test BLOOD SUGAR IN THE MORNING and BEFORE bedtime [id number] Start: 02-19-2024 Clinical Notes 03-09-2020 to 03-18-2024 Telephone Encounter - Christi Blum MA - 03/18/2024 11:47 AM EDTTelephone Encounter - Christi Blum MA - 03/18/2024 11:47 AM EDTTelephone Encounter - Josephine Salomon RN - 03/07/2024 8:23 AM EDT Note Date & Type Note Facility 03-18-2024 Telephone encounter Note Patient coming in Monday03/27/24 for follow up treatment. Please add lab orders. Thanks. Christi Blum MA [facility] 03-18-2024 Miscellaneous Notes Patient coming in Monday03/27/24 for follow up treatment. Please add lab orders. Thanks. Christi Blum MA documented in this encounter [facility] 03-07-2024 Telephone encounter Note Pt notified and will be here today at 11 for treatment. Josephine Salomon RN [facility] Work Phone: 03-07-2024 Miscellaneous Notes Pt notified and will be here today at 11 for treatment. Josephine Salomon RN ----- Message from Vivek Smith MD sent at 03/06/2024 4:18 PM EDT ----- Please inform the patient that his tumor marker is relatively stable. We will continue with chemo as planned. When he returns in 3 weeks we will then discuss when to restage. documented in this encounter [facility] 03-07-2024 Telephone encounter Note ----- Message from Vivek Smith MD sent at 03/06/2024 4:18 PM EDT ----- Please inform the patient that his tumor marker is relatively stable. We will continue with chemo as planned. When he returns in 3 weeks we will then discuss when to restage. [facility] 03-05-2024 Nurse Note Can patient take Tylenol? Janet Dotson MA [facility] 03-05-2024 Nurse Note Can patient take Tylenol? Janet Dotson MA documented in this encounter [facility] 03-04-2024 Note [facility] 03-04-2024 History of Present illness Narrative PATIENT NAME: Trinity Perry DATE: 03/05/2024 PRIMARY CARE PHYSICIAN: Giovanni Salinas II, MD OTHER PHYSICIANS: Dr. Fara Monaco Portions of this encounter note have been copied from the note from 02/12/2024 and has been updated where appropriate, and reflect my current medical decision making from today. CC: This is a 73 year old male with metastatic pancreatic cancer, seen for scheduled follow-up and treatment (prior patient of Dr. Bess) INTERIM HISTORY: The patient remains on chemotherapy with the Julia regimen every 3 weeks. He is tolerating his current dose and schedule well. He has had no new GI symptoms. No severe pain. No fevers or signs of infection. Currently his port appears to be working well. MEDICATIONS: midodrine (PROAMATINE) 2.5 mg tablet^Take 2.5 mg by mouth.^Disp: ^Rfl: prochlorperazine (COMPAZINE) 10 mg tablet^Take 1 tablet by mouth every 6 hours as needed.^Disp: 100 tablet^Rfl: 2 ondansetron (ZOFRAN) 8 mg tablet^Take 1 tablet by mouth every 8 hours as needed for nausea/vomiting.^Disp: 90 tablet^Rfl: 2 insulin glargine U-300 conc (TOUJEO MAX U-300 SOLOSTAR) 300 unit/mL (3 mL) inpn^Inject 300 mL subcutaneously once daily. At night^Disp: ^Rfl: NOVOLIN 70-30 FLEXPEN U-100 100 unit/mL (70-30) pen^INJECT 25 UNITS SUBCUTANEOUSLY IN THE MORNING then INJECT 25 UNITS SUBCUTANEOUSLY IN THE EVENING before a meal^Disp: ^Rfl: tamsulosin (FLOMAX) 0.4 mg^Take 0.4 mg by mouth once daily.^Disp: ^Rfl: ZINC ORAL^Take 50 mcg by mouth once daily.^Disp: ^Rfl: finasteride (PROSCAR) 5 mg tablet^Take 5 mg by mouth once daily.^Disp: ^Rfl: pantoprazole DR (PROTONIX) 20 mg tablet^Take 1 tablet by mouth once daily.^Disp: 30 tablet^Rfl: 5 FREESTYLE FLACO 3 SENSOR marsha^USE DIRECTED change EVERY 14 days^Disp: ^Rfl: (Patient not taking: Reported on 03/05/2024) FREESTYLE FLACO 3 READER misc^USE DIRECTED to check BLOOD SUGAR^Disp: ^Rfl: (Patient not taking: Reported on 03/05/2024) ALLERGIES: Patient has no known allergies. PAST MEDICAL HISTORY: PAST MEDICAL HISTORY Diagnosis Date Acute bilateral deep vein thrombosis (DVT) of upper extremities (HCC) Adenocarcinoma of head of pancreas (HCC) Diabetes mellitus due to underlying condition with diabetic polyneuropathy, without long-term current use of insulin (HCC) 06/07/2023 Gastric outlet obstruction Obstructive sleep apnea PAST SURGICAL HISTORY: PAST SURGICAL HISTORY Procedure Laterality Date INGUINAL HERNIA REPAIR HX Right 01/06/2021 PAST SURGICAL HISTORY OF 12/04/2019 Whipple Procedure 12/04/2019 PAST SURGICAL HISTORY OF 2019 drainage of abscess, placement of drainage caths PICC LINE INSERT/CONSULT 03/11/2020 PICC LINE INSERT/CONSULT 02/11/2021 REVIEW OF SYSTEMS: GENERAL: No weight loss, malaise or fevers. HEENT: Negative for frequent or significant headaches, No changes in hearing or vision, no nose bleeds or other nasal problems RESPIRATORY: Negative for cough, wheezing or shortness of breath. CARDIOVASCULAR: Negative for chest pain, leg swelling or palpitations. GI: Negative for abdominal discomfort, blood in stools or black stools or change in bowel habits : No history of dysuria, frequency or incontinence MUSCULOSKELETAL: Negative for: joint pain or swelling, back pain and muscle pain SKIN: Negative for lesions, rash, and itching. HEMATOLOGY/LYMPHOLOGY: Negative for prolonged bleeding, bruising easily or swollen nodes. NEURO: No history of headaches, syncope, paralysis, seizures or tremors PHYSICAL EXAM: Vitals: BP 112/69 Pulse 89 Temp 36.2 C (97.1 F) (Temporal) Resp 16 Ht 169.7 cm (5' 6.81 ) Wt 75.7 kg (166 lb 14.2 oz) SpO2 99% BMI 26.29 kg/m General: Alert and oriented, no distress, pleasant and cooperative. Heart: Regular, normal S1 and S2, no murmurs, rubs, or gallops Lungs: Clear to auscultation bilaterally Abdomen: Benign Extremities: Feet/ankles without edema, posterior tibial pulses full and symmetrical PATHOLOGY: 12/04/2019 Whipple's procedure FINAL DIAGNOSIS 1. Bile duct margin, excision (A) - Negative for carcinoma. 2. Gastric margin, excision (B) - Negative for carcinoma. - Two lymph nodes, negative for carcinoma (0/2). 3. Posterior SMA node, excision (C) - One lymph node, positive for adenocarcinoma (1/1). 4. 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 - See synoptic report. 5. Additional bile duct margin, excision (E) - Negative for carcinoma. 6. Distal bowel margin, excision (F) - Segment of small bowel, negative for carcinoma. Mismatch repair proficient, microsatellite stable. NGS analysis: Microsatellite stable, tumor mutational burden 2 KRAS [id number], RON [id number] positive LABORATORY DATA: Hemoglobin (g/dL) Date Value 03/05/2024 11.6 02/11/2021 9.1 Hematocrit (%) Date Value 03/05/2024 35.6 02/11/2021 28.1 WBC (k/uL) Date Value 03/05/2024 5.30 02/11/2021 8.84 Platelet Count (k/uL) Date Value 03/05/2024 301 02/11/2021 264 RADIOLOGY/OTHER STUDIES: 11/17/2023 CT chest IMPRESSION: 1. No interval change since 08/18/23. 2. Subcentimeter nodular opacities and mild reticulonodular opacities are stable. 11/17/2023 CT abdomen/pelvis IMPRESSION: 1. New indeterminate 5.8 x 2.8 cm hypodensity in the anterior liver. Differential diagnosis includes necrotic neoplasm and hepatic abscess. Recommend further workup. 2. Multiple peritoneal nodules, mesenteric nodules and lymphadenopathy suspicious for metastases, most are stable but some have decreased in size. 3. Indeterminate subcutaneous nodule in the anterior abdominal wall concerning for metastases, stable. 08/18/2023 CT abdomen/pelvis ([facility]) IMPRESSION: 1. Again noted is metastatic disease with [...] to marked enlargement of the prostate gland. ASSESSMENT/PLAN: 1. Malignant neoplasm of head of pancreas (HCC) - ICD9: 157.0, ICD10: C25.0 Stage III (T3, N2, M0) adenocarcinoma of the pancreas diagnosed November 2019. Status post Whipple's procedure 12/04/2019. Initial pathology revealed the primary tumor 8.1 cm, moderately differentiated adenocarcinoma invading through the duodenal wall, 7 of 27 lymph nodes involved. Germline analysis at the time of diagnosis negative. Due to postop complications he did not receive adjuvant treatment. Recurrent disease documented in January 2022. First-line treatment with gemcitabine plus Abraxane 03/16/2022 - 05/11/2022 (patient elected to stop chemo). Resumed [place] and Abraxane 11/23/2022 - 12/14/2022. Stopped due to poor tolerance. Restarted [place] and Abraxane dose reduced, 2 week on and 2 weeks off 02/01/2023. Worsening neuropathy and Abraxane stopped 05/05/2023. Restaging CT scans April 2023 revealed progressive disease. Second line chemotherapy with Julia regimen started May 2023. After cycle 5 the regimen was changed to every 3 weeks. Most recent restaging CT scans 11/09/2023 revealed suspicious areas in the liver suggesting possible progression, otherwise relatively stable. Because the patient was clinically stable and was tolerating treatment well it was elected to continue the current regimen. At this time he is clinically stable. The patient will receive treatment today. Return in 3 weeks for follow-up. We will monitor clinically and restage if suspicious symptoms develop or his tumor marker increases significantly. 2. Diabetes mellitus Continue management per PCP 3. History of DVT Stable off anticoagulants. 4. Neuropathy Stable on current medications. 5. Hypotension The patient was admitted to [facility] 10/16/2023 with dehydration, hypoglycemia, and hypotension. Blood pressure currently stable on midodrine. Continue management per PCP. 6. Central line complication - ICD9: 996.74, ICD10: T82.9XXA Since October 2023 the patient had intermittent redness around the port tube under the skin over his right chest wall. Portogram 12/01/2023 at [facility] was negative. He was given oral antibiotics for possible infection and the symptoms resolved, but continued to recur with each infusion. The right chest infusaport was removed 12/29/2023 and was found to have a small tear noted in the catheter at/near the IJV entry. New Ohlwlb-f-Hdrv placed 12/29/2023. Vivek Smith MD documented in this encounter [facility] 02-10-2024 Note [facility] 02-10-2024 History of Present illness Narrative PATIENT NAME: Trinity Perry DATE: 02/12/2024 PRIMARY CARE PHYSICIAN: Giovanni Salinas II, MD OTHER PHYSICIANS: Dr. Fara Monaco Portions of this encounter note have been copied from the note from 01/23/2024 and has been updated where appropriate, and reflect my current medical decision making from today. CC: This is a 73 year old male with metastatic pancreatic cancer, seen for scheduled follow-up and treatment (prior patient of Dr. Bess) INTERIM HISTORY: The patient remains on chemotherapy with the Nepoli regimen every 3 weeks. He is tolerating his current dose and schedule well. He complains of increased gas over the past several weeks, but no other GI symptoms. No severe pain. No fevers or signs of infection. Currently his port appears to be working well. MEDICATIONS: FREESTYLE FLACO 3 SENSOR marsha^USE DIRECTED change EVERY 14 days^Disp: ^Rfl: FREESTYLE FLACO 3 READER misc^USE DIRECTED to check BLOOD SUGAR^Disp: ^Rfl: midodrine (PROAMATINE) 2.5 mg tablet^Take 2.5 mg by mouth.^Disp: ^Rfl: prochlorperazine (COMPAZINE) 10 mg tablet^Take 1 tablet by mouth every 6 hours as needed.^Disp: 100 tablet^Rfl: 2 ondansetron (ZOFRAN) 8 mg tablet^Take 1 tablet by mouth every 8 hours as needed for nausea/vomiting.^Disp: 90 tablet^Rfl: 2 insulin glargine U-300 conc (TOUJEO MAX U-300 SOLOSTAR) 300 unit/mL (3 mL) inpn^Inject 300 mL subcutaneously once daily. At night^Disp: ^Rfl: NOVOLIN 70-30 FLEXPEN U-100 100 unit/mL (70-30) pen^INJECT 25 UNITS SUBCUTANEOUSLY IN THE MORNING then INJECT 25 UNITS SUBCUTANEOUSLY IN THE EVENING before a meal^Disp: ^Rfl: tamsulosin (FLOMAX) 0.4 mg^Take 0.4 mg by mouth once daily.^Disp: ^Rfl: ZINC ORAL^Take 50 mcg by mouth once daily.^Disp: ^Rfl: finasteride (PROSCAR) 5 mg tablet^Take 5 mg by mouth once daily.^Disp: ^Rfl: pantoprazole DR (PROTONIX) 20 mg tablet^Take 1 tablet by mouth once daily.^Disp: 30 tablet^Rfl: 5 ALLERGIES: Patient has no known allergies. PAST MEDICAL HISTORY: PAST MEDICAL HISTORY Diagnosis Date Acute bilateral deep vein thrombosis (DVT) of upper extremities (HCC) Adenocarcinoma of head of pancreas (HCC) Diabetes mellitus due to underlying condition with diabetic polyneuropathy, without long-term current use of insulin (HCC) 06/07/2023 Gastric outlet obstruction Obstructive sleep apnea PAST SURGICAL HISTORY: PAST SURGICAL HISTORY Procedure Laterality Date INGUINAL HERNIA REPAIR HX Right 01/06/2021 PAST SURGICAL HISTORY OF 12/04/2019 Whipple Procedure 12/04/2019 PAST SURGICAL HISTORY OF 2019 drainage of abscess, placement of drainage caths PICC LINE INSERT/CONSULT 03/11/2020 PICC LINE INSERT/CONSULT 02/11/2021 REVIEW OF SYSTEMS: GENERAL: No weight loss, malaise or fevers. HEENT: Negative for frequent or significant headaches, No changes in hearing or vision, no nose bleeds or other nasal problems RESPIRATORY: Negative for cough, wheezing or shortness of breath. CARDIOVASCULAR: Negative for chest pain, leg swelling or palpitations. GI: Negative for abdominal discomfort, blood in stools or black stools or change in bowel habits : No history of dysuria, frequency or incontinence MUSCULOSKELETAL: Negative for: joint pain or swelling, back pain and muscle pain SKIN: Negative for lesions, rash, and itching. HEMATOLOGY/LYMPHOLOGY: Negative for prolonged bleeding, bruising easily or swollen nodes. NEURO: No history of headaches, syncope, paralysis, seizures or tremors PHYSICAL EXAM: Vitals: BP 117/76 Pulse 82 Temp 36.4 C (97.6 F) (Temporal) Resp 18 Wt 75 kg (165 lb 5.5 oz) SpO2 99% BMI 26.04 kg/m General: Alert and oriented, no distress, pleasant and cooperative. Heart: Regular, normal S1 and S2, no murmurs, rubs, or gallops Lungs: Clear to auscultation bilaterally Abdomen: Benign Extremities: Feet/ankles without edema, posterior tibial pulses full and symmetrical PATHOLOGY: 12/04/2019 Whipple's procedure FINAL DIAGNOSIS 1. Bile duct margin, excision (A) - Negative for carcinoma. 2. Gastric margin, excision (B) - Negative for carcinoma. - Two lymph nodes, negative for carcinoma (0/2). 3. Posterior SMA node, excision (C) - One lymph node, positive for adenocarcinoma (1/1). 4. 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 - See synoptic report. 5. Additional bile duct margin, excision (E) - Negative for carcinoma. 6. Distal bowel margin, excision (F) - Segment of small bowel, negative for carcinoma. Mismatch repair proficient, microsatellite stable. NGS analysis: Microsatellite stable, tumor mutational burden 2 KRAS [id number], RON [id number] positive LABORATORY DATA: Hemoglobin (g/dL) Date Value 02/12/2024 11.3 02/11/2021 9.1 Hematocrit (%) Date Value 02/12/2024 34.0 02/11/2021 28.1 WBC (k/uL) Date Value 02/12/2024 4.60 02/11/2021 8.84 Platelet Count (k/uL) Date Value 02/12/2024 291 02/11/2021 264 RADIOLOGY/OTHER STUDIES: 11/17/2023 CT chest IMPRESSION: 1. No interval change since 08/18/23. 2. Subcentimeter nodular opacities and mild reticulonodular opacities are stable. 11/17/2023 CT abdomen/pelvis IMPRESSION: 1. New indeterminate 5.8 x 2.8 cm hypodensity in the anterior liver. Differential diagnosis includes necrotic neoplasm and hepatic abscess. Recommend further workup. 2. Multiple peritoneal nodules, mesenteric nodules and lymphadenopathy suspicious for metastases, most are stable but some have decreased in size. 3. Indeterminate subcutaneous nodule in the anterior abdominal wall concerning for metastases, stable. 08/18/2023 CT abdomen/pelvis ([facility]) IMPRESSION: 1. Again noted is metastatic disease with [...] to marked enlargement of the prostate gland. ASSESSMENT/PLAN: 1. Malignant neoplasm of head of pancreas (HCC) - ICD9: 157.0, ICD10: C25.0 Stage III (T3, N2, M0) adenocarcinoma of the pancreas diagnosed November 2019. Status post Whipple's procedure 12/04/2019. Initial pathology revealed the primary tumor 8.1 cm, moderately differentiated adenocarcinoma invading through the duodenal wall, 7 of 27 lymph nodes involved. Germline analysis at the time of diagnosis negative. Due to postop complications he did not receive adjuvant treatment. Recurrent disease documented in January 2022. First-line treatment with gemcitabine plus Abraxane 03/16/2022 - 05/11/2022 (patient elected to stop chemo). Resumed [place] and Abraxane 11/23/2022 - 12/14/2022. Stopped due to poor tolerance. Restarted [place] and Abraxane dose reduced, 2 week on and 2 weeks off 02/01/2023. Worsening neuropathy and Abraxane stopped 05/05/2023. Restaging CT scans April 2023 revealed progressive disease. Second line chemotherapy with Julia regimen started May 2023. After cycle 5 the regimen was changed to every 3 weeks. Most recent restaging CT scans 11/09/2023 revealed suspicious areas in the liver suggesting possible progression, otherwise relatively stable. Because the patient was clinically stable and was tolerating treatment well it was elected to continue the current regimen. At this time he is clinically stable. The patient will receive treatment today. Return in 3 weeks for follow-up. We will monitor clinically and restage if suspicious symptoms develop or his tumor marker increases significantly. 2. Diabetes mellitus Continue management per PCP 3. History of DVT Stable off anticoagulants. 4. Neuropathy Stable on current medications. 5. Hypotension The patient was admitted to [facility] 10/16/2023 with dehydration, hypoglycemia, and hypotension. Blood pressure currently stable on midodrine. Continue management per PCP. 6. Central line complication - ICD9: 996.74, ICD10: T82.9XXA Since October 2023 the patient had intermittent redness around the port tube under the skin over his right chest wall. Portogram 12/01/2023 at [facility] was negative. He was given oral antibiotics for possible infection and the symptoms resolved, but continued to recur with each infusion. The right chest infusaport was removed 12/29/2023 and was found to have a small tear noted in the catheter at/near the IJV entry. New Edmljn-m-Atdp placed 12/29/2023. Vivek Smith MD documented in this encounter [facility] 01-23-2024 History of Present illness Narrative PATIENT NAME: Trinity Perry DATE: 01/23/2024 PRIMARY CARE PHYSICIAN: Giovanni Salinas II, MD OTHER PHYSICIANS: Dr. Fara Monaco Portions of this encounter note have been copied from the note from 01/03/2024 and has been updated where appropriate, and reflect my current medical decision making from today. CC: This is a 73 year old male with metastatic pancreatic cancer, seen for scheduled follow-up and treatment (prior patient of Dr. Bess) INTERIM HISTORY: Alfred returns to continue treatment. He is tolerating treatment well. He enjoys every 3 week visits as it gives him more time to recover from treatment. He denies any new pain or side effects. MEDICATIONS: FREESTYLE FLACO 3 SENSOR marsha^USE DIRECTED change EVERY 14 days^Disp: ^Rfl: FREESTYLE FLACO 3 READER misc^USE DIRECTED to check BLOOD SUGAR^Disp: ^Rfl: midodrine (PROAMATINE) 2.5 mg tablet^Take 2.5 mg by mouth.^Disp: ^Rfl: prochlorperazine (COMPAZINE) 10 mg tablet^Take 1 tablet by mouth every 6 hours as needed.^Disp: 100 tablet^Rfl: 2 ondansetron (ZOFRAN) 8 mg tablet^Take 1 tablet by mouth every 8 hours as needed for nausea/vomiting.^Disp: 90 tablet^Rfl: 2 insulin glargine U-300 conc (TOUJEO MAX U-300 SOLOSTAR) 300 unit/mL (3 mL) inpn^Inject 300 mL subcutaneously once daily. At night^Disp: ^Rfl: NOVOLIN 70-30 FLEXPEN U-100 100 unit/mL (70-30) pen^INJECT 25 UNITS SUBCUTANEOUSLY IN THE MORNING then INJECT 25 UNITS SUBCUTANEOUSLY IN THE EVENING before a meal^Disp: ^Rfl: tamsulosin (FLOMAX) 0.4 mg^Take 0.4 mg by mouth once daily.^Disp: ^Rfl: ZINC ORAL^Take 50 mcg by mouth once daily.^Disp: ^Rfl: finasteride (PROSCAR) 5 mg tablet^Take 5 mg by mouth once daily.^Disp: ^Rfl: pantoprazole DR (PROTONIX) 20 mg tablet^Take 1 tablet by mouth once daily.^Disp: 30 tablet^Rfl: 5 ALLERGIES: Patient has no known allergies. PAST MEDICAL HISTORY: PAST MEDICAL HISTORY No date: Acute bilateral deep vein thrombosis (DVT) of upper extremities (HCC) No date: Adenocarcinoma of head of pancreas (HCC) 06/07/2023: Diabetes mellitus due to underlying condition with diabetic polyneuropathy, without long-term current use of insulin (HCC) No date: Gastric outlet obstruction No date: Obstructive sleep apnea PAST SURGICAL HISTORY: PAST SURGICAL HISTORY 01/06/2021: INGUINAL HERNIA REPAIR HX; Right 12/04/2019: PAST SURGICAL HISTORY OF Comment: Whipple Procedure 12/04/2019 2020: PAST SURGICAL HISTORY OF Comment: drainage of abscess, placement of drainage caths 03/11/2020: PICC LINE INSERT/CONSULT Comment: 02/11/2021: PICC LINE INSERT/CONSULT Comment: REVIEW OF SYSTEMS: GENERAL: No weight loss, malaise or fevers. HEENT: Negative for frequent or significant headaches, No changes in hearing or vision, no nose bleeds or other nasal problems RESPIRATORY: Negative for cough, wheezing or shortness of breath. CARDIOVASCULAR: Negative for chest pain, leg swelling or palpitations. GI: Negative for abdominal discomfort, blood in stools or black stools or change in bowel habits : No history of dysuria, frequency or incontinence MUSCULOSKELETAL: Negative for: joint pain or swelling, back pain and muscle pain SKIN: Negative for lesions, rash, and itching. HEMATOLOGY/LYMPHOLOGY: Negative for prolonged bleeding, bruising easily or swollen nodes. NEURO: No history of headaches, syncope, paralysis, seizures or tremors PHYSICAL EXAM: Vitals: BP 124/81 Pulse 82 Temp 36.2 C (97.1 F) (Temporal) Resp 16 Ht 169.7 cm (5' 6.81 ) Wt 75.3 kg (166 lb 0.1 oz) SpO2 100% BMI 26.15 kg/m General: Alert and oriented, no distress, pleasant and cooperative. Heart: Regular, normal S1 and S2, no murmurs, rubs, or gallops Lungs: Clear to auscultation bilaterally Abdomen: Benign Extremities: Feet/ankles without edema, posterior tibial pulses full and symmetrical PATHOLOGY: 12/04/2019 Whipple's procedure FINAL DIAGNOSIS 1. Bile duct margin, excision (A) - Negative for carcinoma. 2. Gastric margin, excision (B) - Negative for carcinoma. - Two lymph nodes, negative for carcinoma (0/2). 3. Posterior SMA node, excision (C) - One lymph node, positive for adenocarcinoma (1/1). 4. 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 - See synoptic report. 5. Additional bile duct margin, excision (E) - Negative for carcinoma. 6. Distal bowel margin, excision (F) - Segment of small bowel, negative for carcinoma. Mismatch repair proficient, microsatellite stable. NGS analysis: Microsatellite stable, tumor mutational burden 2 KRAS [id number], RON [id number] positive LABORATORY DATA: Hemoglobin (g/dL) Date Value 01/23/2024 11.5 02/11/2021 9.1 Hematocrit (%) Date Value 01/23/2024 35.1 02/11/2021 28.1 WBC (k/uL) Date Value 01/23/2024 4.54 02/11/2021 8.84 Platelet Count (k/uL) Date Value 01/23/2024 277 02/11/2021 264 RADIOLOGY/OTHER STUDIES: 11/17/2023 CT chest IMPRESSION: 1. No interval change since 08/18/23. 2. Subcentimeter nodular opacities and mild reticulonodular opacities are stable. 11/17/2023 CT abdomen/pelvis IMPRESSION: 1. New indeterminate 5.8 x 2.8 cm hypodensity in the anterior liver. Differential diagnosis includes necrotic neoplasm and hepatic abscess. Recommend further workup. 2. Multiple peritoneal nodules, mesenteric nodules and lymphadenopathy suspicious for metastases, most are stable but some have decreased in size. 3. Indeterminate subcutaneous nodule in the anterior abdominal wall concerning for metastases, stable. 08/18/2023 CT abdomen/pelvis ([facility] imaging) IMPRESSION: 1. Again noted is metastatic disease with [...] to marked enlargement of the prostate gland. ASSESSMENT/PLAN: 1. Malignant neoplasm of head of pancreas (HCC) - ICD9: 157.0, ICD10: C25.0 Stage III (T3, N2, M0) adenocarcinoma of the pancreas diagnosed November 2019. Status post Whipple's procedure 12/04/2019. Initial pathology revealed the primary tumor 8.1 cm, moderately differentiated adenocarcinoma invading through the duodenal wall, 7 of 27 lymph nodes involved. Germline analysis at the time of diagnosis negative. Due to postop complications he did not receive adjuvant treatment. Recurrent disease documented in January 2022. First-line treatment with gemcitabine plus Abraxane 03/16/2022 - 05/11/2022 (patient elected to stop chemo). Resumed [place] and Abraxane 11/23/2022 - 12/14/2022. Stopped due to poor tolerance. Restarted [place] and Abraxane dose reduced, 2 week on and 2 weeks off 02/01/2023. Worsening neuropathy and Abraxane stopped 05/05/2023. Restaging CT scans April 2023 revealed progressive disease. Second line chemotherapy with Julia regimen started May 2023. After cycle 5 the regimen was changed to every 3 weeks. Currently the patient is relatively stable clinically. Most recent restaging CT scans 11/09/2023 revealed suspicious areas in the liver suggesting possible progression, otherwise relatively stable. Because the patient was clinically stable and was tolerating treatment well it was like to continue the current regimen. Proceed with treatment today and return in 3 weeks for labs, follow-up and treatment. We will then likely arrange for restaging scans, as it will have been 3 months since his last imaging. If/when his disease progresses significantly will discuss options for third line therapy. If the patient's condition is poor he realizes hospice may be recommended. 2. Diabetes mellitus Continue management per PCP 3. History of DVT Stable off anticoagulants. 4. Neuropathy Stable on current medications. 5. Hypotension The patient was admitted to [facility] 10/16/2023 with dehydration, hypoglycemia, and hypotension. Blood pressure currently stable on midodrine. Continue management per PCP. 6. Central line complication - ICD9: 996.74, ICD10: T82.9XXA Since October 2023 the patient had intermittent redness around the port tube under the skin over his right chest wall. Portogram 12/01/2023 at [facility] was negative. He was given oral antibiotics for possible infection and the symptoms resolved, but continued to recur with each infusion. The right chest infusaport was removed 12/29/2023 and was found to have a small tear noted in the catheter at/near the IJV entry. He had a new left infusaport placed on 12/29/2023. Greta Wetzel PA-C I spent a total of 21 minutes on the date of the service which included preparing to see the patient, [id number] patient care, completing clinical documentation, performing a medically appropriate examination, counseling and educating the patient/family/caregiver, ordering medications, tests, or procedures, independently interpreting results (not separately reported), communicating results to the patient/family/caregiver, and care coordination (not separately reported). documented in this encounter [facility] 01-23-2024 Note [facility] 01-04-2024 Telephone encounter Note Pt Brittni, informed of MM message and denies any questions, needs or concerns at this time. Appointment verified. Key Travis RN [facility] 01-04-2024 Miscellaneous Notes Pt , Brittni, informed of MM message and denies any questions, needs or concerns at this time. Appointment verified. Key Travis RN ----- Message from Greta Wetzel PA-C sent at 01/04/2024 11:40 AM EDT ----- Please call with improving ca19-9 documented in this encounter [facility] 01-04-2024 Telephone encounter Note ----- Message from Greta Wetzel PA-C sent at 01/04/2024 11:40 AM EDT ----- Please call with improving ca19-9 [facility] 01-03-2024 Note [facility] 01-03-2024 History of Present illness Narrative PATIENT NAME: Trinity Perry DATE: 12/11/2023 PRIMARY CARE PHYSICIAN: Giovanni Salinas II, MD OTHER PHYSICIANS: Dr. Fara Monaco Portions of this encounter note have been copied from the note from 12/11/2023 and has been updated where appropriate, and reflect my current medical decision making from today. CC: This is a 73 year old male with metastatic pancreatic cancer, seen for scheduled follow-up and treatment (prior patient of Dr. Bess) INTERIM HISTORY: The patient remains on chemotherapy with liposomal irinotecan plus 5-FU/leucovorin infusion (Julia regimen). Overall tolerating treatment well. He had his right infusaport removed 12/29/2023 and a small tear was noted in the catheter at/near the IJV entry. A new left infusaport was placed. Overall he is doing well. Denies any nausea, vomiting or diarrhea. He does have significant fatigue with treatment. However, he naps and feels better. MEDICATIONS: FREESTYLE FLACO 3 SENSOR marsha^USE DIRECTED change EVERY 14 days^Disp: ^Rfl: FREESTYLE FLACO 3 READER misc^USE DIRECTED to check BLOOD SUGAR^Disp: ^Rfl: midodrine (PROAMATINE) 2.5 mg tablet^Take 2.5 mg by mouth.^Disp: ^Rfl: prochlorperazine (COMPAZINE) 10 mg tablet^Take 1 tablet by mouth every 6 hours as needed.^Disp: 100 tablet^Rfl: 2 ondansetron (ZOFRAN) 8 mg tablet^Take 1 tablet by mouth every 8 hours as needed for nausea/vomiting.^Disp: 90 tablet^Rfl: 2 insulin glargine U-300 conc (TOUJEO MAX U-300 SOLOSTAR) 300 unit/mL (3 mL) inpn^Inject 300 mL subcutaneously once daily. At night^Disp: ^Rfl: NOVOLIN 70-30 FLEXPEN U-100 100 unit/mL (70-30) pen^INJECT 25 UNITS SUBCUTANEOUSLY IN THE MORNING then INJECT 25 UNITS SUBCUTANEOUSLY IN THE EVENING before a meal^Disp: ^Rfl: tamsulosin (FLOMAX) 0.4 mg^Take 0.4 mg by mouth once daily.^Disp: ^Rfl: ZINC ORAL^Take 50 mcg by mouth once daily.^Disp: ^Rfl: finasteride (PROSCAR) 5 mg tablet^Take 5 mg by mouth once daily.^Disp: ^Rfl: pantoprazole DR (PROTONIX) 20 mg tablet^Take 1 tablet by mouth once daily.^Disp: 30 tablet^Rfl: 5 ALLERGIES: Patient has no known allergies. PAST MEDICAL HISTORY: PAST MEDICAL HISTORY No date: Acute bilateral deep vein thrombosis (DVT) of upper extremities (HCC) No date: Adenocarcinoma of head of pancreas (HCC) 06/07/2023: Diabetes mellitus due to underlying condition with diabetic polyneuropathy, without long-term current use of insulin (HCC) No date: Gastric outlet obstruction No date: Obstructive sleep apnea PAST SURGICAL HISTORY: PAST SURGICAL HISTORY 01/06/2021: INGUINAL HERNIA REPAIR HX; Right 12/04/2019: PAST SURGICAL HISTORY OF Comment: Whipple Procedure 12/04/2019 2020: PAST SURGICAL HISTORY OF Comment: drainage of abscess, placement of drainage caths 03/11/2020: PICC LINE INSERT/CONSULT Comment: 02/11/2021: PICC LINE INSERT/CONSULT Comment: REVIEW OF SYSTEMS: GENERAL: No weight loss, malaise or fevers. HEENT: Negative for frequent or significant headaches, No changes in hearing or vision, no nose bleeds or other nasal problems RESPIRATORY: Negative for cough, wheezing or shortness of breath. CARDIOVASCULAR: Negative for chest pain, leg swelling or palpitations. GI: Negative for abdominal discomfort, blood in stools or black stools or change in bowel habits : No history of dysuria, frequency or incontinence MUSCULOSKELETAL: Negative for: joint pain or swelling, back pain and muscle pain SKIN: Negative for lesions, rash, and itching. HEMATOLOGY/LYMPHOLOGY: Negative for prolonged bleeding, bruising easily or swollen nodes. NEURO: No history of headaches, syncope, paralysis, seizures or tremors PHYSICAL EXAM: Vitals: BP 128/84 Pulse 75 Temp 36.3 C (97.4 F) (Temporal) Resp 16 Ht 169.7 cm (5' 6.81 ) Wt 75.4 kg (166 lb 3.6 oz) SpO2 99% BMI 26.18 kg/m General: Alert and oriented, no distress, pleasant and cooperative. Heart: Regular, normal S1 and S2, no murmurs, rubs, or gallops Lungs: Clear to auscultation bilaterally Abdomen: Benign Extremities: Feet/ankles without edema, posterior tibial pulses full and symmetrical Chest: port in left cw without erythema PATHOLOGY: 12/04/2019 Whipple's procedure FINAL DIAGNOSIS 1. Bile duct margin, excision (A) - Negative for carcinoma. 2. Gastric margin, excision (B) - Negative for carcinoma. - Two lymph nodes, negative for carcinoma (0/2). 3. Posterior SMA node, excision (C) - One lymph node, positive for adenocarcinoma (1/1). 4. 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 - See synoptic report. 5. Additional bile duct margin, excision (E) - Negative for carcinoma. 6. Distal bowel margin, excision (F) - Segment of small bowel, negative for carcinoma. Mismatch repair proficient, microsatellite stable. NGS analysis: Microsatellite stable, tumor mutational burden 2 KRAS [id number], RON [id number] positive LABORATORY DATA: Hemoglobin (g/dL) Date Value 01/03/2024 11.1 02/11/2021 9.1 Hematocrit (%) Date Value 01/03/2024 33.7 02/11/2021 28.1 WBC (k/uL) Date Value 01/03/2024 5.22 02/11/2021 8.84 Platelet Count (k/uL) Date Value 01/03/2024 288 02/11/2021 264 RADIOLOGY/OTHER STUDIES: 11/17/2023 CT chest IMPRESSION: 1. No interval change since 08/18/23. 2. Subcentimeter nodular opacities and mild reticulonodular opacities are stable. 11/17/2023 CT abdomen/pelvis IMPRESSION: 1. New indeterminate 5.8 x 2.8 cm hypodensity in the anterior liver. Differential diagnosis includes necrotic neoplasm and hepatic abscess. Recommend further workup. 2. Multiple peritoneal nodules, mesenteric nodules and lymphadenopathy suspicious for metastases, most are stable but some have decreased in size. 3. Indeterminate subcutaneous nodule in the anterior abdominal wall concerning for metastases, stable. 08/18/2023 CT abdomen/pelvis ([facility] imaging) IMPRESSION: 1. Again noted is metastatic disease with [...] to marked enlargement of the prostate gland. ASSESSMENT/PLAN: 1. Malignant neoplasm of head of pancreas (HCC) - ICD9: 157.0, ICD10: C25.0 Stage III (T3, N2, M0) adenocarcinoma of the pancreas diagnosed November 2019. Status post Whipple's procedure 12/04/2019. Initial pathology revealed the primary tumor 8.1 cm, moderately differentiated adenocarcinoma invading through the duodenal wall, 7 of 27 lymph nodes involved. Germline analysis at the time of diagnosis negative. Due to postop complications he did not receive adjuvant treatment. Recurrent disease documented in January 2022. First-line treatment with gemcitabine plus Abraxane 03/16/2022 - 05/11/2022 (patient elected to stop chemo). Resumed [place] and Abraxane 11/23/2022 - 12/14/2022. Stopped due to poor tolerance. Restarted [place] and Abraxane dose reduced, 2 week on and 2 weeks off 02/01/2023. Worsening neuropathy and Abraxane stopped 05/05/2023. Restaging CT scans April 2023 revealed progressive disease. Second line chemotherapy with Julia regimen started May 2023. After cycle 5 the regimen was changed to every 3 weeks. Currently the patient is relatively stable clinically. Most recent restaging CT scans 11/09/2023 revealed suspicious areas in the liver suggesting possible progression, otherwise relatively stable. Because the patient was clinically stable and was tolerating treatment well it was like to continue the current regimen. Proceed with treatment today and return in 3 weeks for labs, follow-up and treatment. Will restage again at 3 months. If/when his disease progresses significantly will discuss options for third line therapy. If the patient's condition is poor he realizes hospice may be recommended. 2. Diabetes mellitus Continue management per PCP 3. History of DVT Stable off anticoagulants. 4. Neuropathy Stable on current medications. 5. Hypotension The patient was admitted to [facility] 10/16/2023 with dehydration, hypoglycemia, and hypotension. Blood pressure currently stable on midodrine. Continue management per PCP. 6. Central line complication - ICD9: 996.74, ICD10: T82.9XXA Since October 2023 the patient had intermittent redness around the port tube under the skin over his right chest wall. Portogram 12/01/2023 at [facility] was negative. He was given oral antibiotics for possible infection and the symptoms resolved, but continued to recur with each infusion. The right chest infusaport was removed 12/29/2023 and was found to have a small tear noted in the catheter at/near the IJV entry. He had a new left infusaport placed on 12/29/2023. Greta Wetzel PA-C I spent a total of 20 minutes on the date of the service which included preparing to see the patient, [id number] patient care, completing clinical documentation, performing a medically appropriate examination, counseling and educating the patient/family/caregiver, ordering medications, tests, or procedures, independently interpreting results (not separately reported), communicating results to the patient/family/caregiver, and care coordination (not separately reported). documented in this encounter [facility] 01-02-2024 Telephone encounter Note Patient coming in Monday01/03/24 for follow up treatment. Please add lab orders. Thanks. Christi Blum MA [facility] 12-27-2023 Miscellaneous Notes You are scheduled for a Port Removal, On 12/29/2023. You are to arrive at 09:00 am and Report to [facility]: [facility]: Radiology Outpatient Desk [id number] You can expect to be here for 2-4 hours. Diet: Do not eat any solid food after MIDNIGHT the day of/night before your procedure. You may drink clear liquids until 08:00am, which means black coffee, apple juice, black tea, or water only. Medications: Ok to take your cardiac, blood pressure, anti-seizure, and chronic pain medications with a sip of water, please take prior to arrival. Bring your current medication list. RADIOLOGY RECOMMENDS THESE MEDICATION RESTRICTIONS: IFok with your Prescribing Provider: Hold short acting insulin the day of procedure. Long acting insulin, take dose. If on mixed insulin - if BG> than 200 should take half the dose. If BG less < 200- don't take. Special concerns: Do you have any attached medical devices? Yes, patient advised to do finger stick glucose as needed. Insulin pumps must be removed before entering the procedure room. Do you wear Neulasta Onpro? No. If yes, the device must be removed before entering the procedure room. Do you use CPAP or BPAP? No. Contrast Dye Prep: Do you have a contrast dye allergy? No. Labs: Lab-work needs to be drawn? No.. Exhibit Specialist/Transportation: How will you be arriving for your procedure? Private car. You will need a responsible adult to accompany you to and from the procedure. Your ems driver is required to stay with you until you are taken into the procedure room. documented in this encounter [facility] 12-27-2023 Telephone encounter Note You are scheduled for a Port Removal, On 12/29/2023. You are to arrive at 09:00 am and Report to [facility]: [facility]: Radiology Outpatient Desk [id number] You can expect to be here for 2-4 hours. Diet: Do not eat any solid food after MIDNIGHT the day of/night before your procedure. You may drink clear liquids until 08:00am, which means black coffee, apple juice, black tea, or water only. Medications: Ok to take your cardiac, blood pressure, anti-seizure, and chronic pain medications with a sip of water, please take prior to arrival. Bring your current medication list. RADIOLOGY RECOMMENDS THESE MEDICATION RESTRICTIONS: IFok with your Prescribing Provider: Hold short acting insulin the day of procedure. Long acting insulin, take dose. If on mixed insulin - if BG> than 200 should take half the dose. If BG less < 200- don't take. Special concerns: Do you have any attached medical devices? Yes, patient advised to do finger stick glucose as needed. Insulin pumps must be removed before entering the procedure room. Do you wear Neulasta Onpro? No. If yes, the device must be removed before entering the procedure room. Do you use CPAP or BPAP? No. Contrast Dye Prep: Do you have a contrast dye allergy? No. Labs: Lab-work needs to be drawn? No.. Exhibit Specialist/Transportation: How will you be arriving for your procedure? Private car. You will need a responsible adult to accompany you to and from the procedure. Your ems driver is required to stay with you until you are taken into the procedure room. [facility] 12-26-2023 Telephone encounter Note Called pt unable to leave message at Home #. Left message non detailed message on Cell phone to call back to Radiology Office # [facility] 12-26-2023 Miscellaneous Notes Called pt unable to leave message at Home #. Left message non detailed message on Cell phone to call back to Radiology Office # documented in this encounter [facility] 12-13-2023 Note [facility] 12-13-2023 History of Present illness Narrative Alfred was in clinic today for his pump d/c. Bright redness going up the port tubing noted as before. Pt has intermittent stabbing pains in the area but denies pain to the touch or tenderness, no fevers or other s/sx infection. Raf Wetzel, PAC assessed the port site. Antibiotics prescribed and pt was instructed to contact the surgeon that placed the port for possible replacement as this has happened in the past also. Daja Carnes RN documented in this encounter [facility] 12-10-2023 Note [facility] 12-10-2023 History of Present illness Narrative PATIENT NAME: Trinity Perry DATE: 12/11/2023 PRIMARY CARE PHYSICIAN: Giovanni Salinas II, MD OTHER PHYSICIANS: Dr. Fara Monaco Portions of this encounter note have been copied from my note from 11/20/2023 and has been updated where appropriate, and reflect my current medical decision making from today. CC: This is a 73 year old male with metastatic pancreatic cancer, seen for scheduled follow-up and treatment (prior patient of Dr. Bess) INTERIM HISTORY: The patient remains on chemotherapy with liposomal irinotecan plus 5-FU/leucovorin infusion (Julia regimen). Overall he is tolerating treatment well. Over the past several treatments he has developed intermittent redness around the port tube under the skin over his right chest wall. Portogram 12/01/2023 at [facility] was negative. He was given oral antibiotics for possible infection and the symptoms have resolved. He feels relatively well today and desires to proceed with treatment as planned. Redness around port tube under skin right upper CW. Portagrtam 11/30 at [facility] neg. Given oral abx. Better now MEDICATIONS: midodrine (PROAMATINE) 2.5 mg tablet^Take 2.5 mg by mouth.^Disp: ^Rfl: prochlorperazine (COMPAZINE) 10 mg tablet^Take 1 tablet by mouth every 6 hours as needed.^Disp: 100 tablet^Rfl: 2 ondansetron (ZOFRAN) 8 mg tablet^Take 1 tablet by mouth every 8 hours as needed for nausea/vomiting.^Disp: 90 tablet^Rfl: 2 insulin glargine U-300 conc (TOUJEO MAX U-300 SOLOSTAR) 300 unit/mL (3 mL) inpn^Inject 300 mL subcutaneously once daily. At night^Disp: ^Rfl: NOVOLIN 70-30 FLEXPEN U-100 100 unit/mL (70-30) pen^INJECT 25 UNITS SUBCUTANEOUSLY IN THE MORNING then INJECT 25 UNITS SUBCUTANEOUSLY IN THE EVENING before a meal^Disp: ^Rfl: tamsulosin (FLOMAX) 0.4 mg^Take 0.4 mg by mouth once daily.^Disp: ^Rfl: ZINC ORAL^Take 50 mcg by mouth once daily.^Disp: ^Rfl: finasteride (PROSCAR) 5 mg tablet^Take 5 mg by mouth once daily.^Disp: ^Rfl: pantoprazole DR (PROTONIX) 20 mg tablet^Take 1 tablet by mouth once daily.^Disp: 30 tablet^Rfl: 5 ALLERGIES: Patient has no known allergies. PAST MEDICAL HISTORY: PAST MEDICAL HISTORY Diagnosis Date Acute bilateral deep vein thrombosis (DVT) of upper extremities (HCC) Adenocarcinoma of head of pancreas (HCC) Diabetes mellitus due to underlying condition with diabetic polyneuropathy, without long-term current use of insulin (HCC) 06/07/2023 Gastric outlet obstruction Obstructive sleep apnea PAST SURGICAL HISTORY: PAST SURGICAL HISTORY Procedure Laterality Date INGUINAL HERNIA REPAIR HX Right 01/06/2021 PAST SURGICAL HISTORY OF 12/04/2019 Whipple Procedure 12/04/2019 PAST SURGICAL HISTORY OF 2019 drainage of abscess, placement of drainage caths PICC LINE INSERT/CONSULT 03/11/2020 PICC LINE INSERT/CONSULT 02/11/2021 REVIEW OF SYSTEMS: GENERAL: No weight loss, malaise or fevers. HEENT: Negative for frequent or significant headaches, No changes in hearing or vision, no nose bleeds or other nasal problems RESPIRATORY: Negative for cough, wheezing or shortness of breath. CARDIOVASCULAR: Negative for chest pain, leg swelling or palpitations. GI: Negative for abdominal discomfort, blood in stools or black stools or change in bowel habits : No history of dysuria, frequency or incontinence MUSCULOSKELETAL: Negative for: joint pain or swelling, back pain and muscle pain SKIN: Negative for lesions, rash, and itching. HEMATOLOGY/LYMPHOLOGY: Negative for prolonged bleeding, bruising easily or swollen nodes. NEURO: No history of headaches, syncope, paralysis, seizures or tremors PHYSICAL EXAM: Vitals: BP 107/69 Pulse 84 Temp 36.6 C (97.9 F) (Temporal) Resp 16 Wt 74.5 kg (164 lb 3.9 oz) SpO2 99% BMI 25.87 kg/m General appearance: well appearing, alert, in no acute distress, well-hydrated, well nourished Skin: skin color, texture, turgor normal, no suspicious rashes or lesions Head: normal Eyes: Anicteric sclera. Pupils are equally round and reactive to light. Extraocular movements are intact. Ears: negative findings: external ears normal to inspection and palpation Oropharynx: negative Neck: Supple, no adenopathy; thyroid symmetric, normal size Lymph Nodes: No Submandibular, cervical, supraclavicular, axillary, or inguinal lymphadenopathy present Breast: NL Symmetry, No Masses/Tenderness/Discharge, No Skin Changes Back: no tenderness to palpation Lungs: clear to auscultation, no wheezing or rhonchi Heart: Negative. RRR without murmur, gallop, or rubs. No ectopy. Abdomen: Normal abdominal exam, Abdomen soft, non-tender. Bowel sounds normal. No masses, organomegaly Rectal: Not done Extremities: Extremities normal. No deformities, edema, or skin discoloration. Good capillary refill. Musculoskeletal: No joint swelling, deformity, or tenderness. Peripheral pulses: Normal PATHOLOGY: 12/04/2019 Whipple's procedure FINAL DIAGNOSIS 1. Bile duct margin, excision (A) - Negative for carcinoma. 2. Gastric margin, excision (B) - Negative for carcinoma. - Two lymph nodes, negative for carcinoma (0/2). 3. Posterior SMA node, excision (C) - One lymph node, positive for adenocarcinoma (1/1). 4. 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 - See synoptic report. 5. Additional bile duct margin, excision (E) - Negative for carcinoma. 6. Distal bowel margin, excision (F) - Segment of small bowel, negative for carcinoma. Mismatch repair proficient, microsatellite stable. NGS analysis: Microsatellite stable, tumor mutational burden 2 KRAS [id number], RON [id number] positive LABORATORY DATA: Hemoglobin (g/dL) Date Value 12/11/2023 11.0 02/11/2021 9.1 Hematocrit (%) Date Value 12/11/2023 34.5 02/11/2021 28.1 WBC (k/uL) Date Value 12/11/2023 4.98 02/11/2021 8.84 Platelet Count (k/uL) Date Value 12/11/2023 266 02/11/2021 264 RADIOLOGY/OTHER STUDIES: 11/17/2023 CT chest IMPRESSION: 1. No interval change since 08/18/23. 2. Subcentimeter nodular opacities and mild reticulonodular opacities are stable. 11/17/2023 CT abdomen/pelvis IMPRESSION: 1. New indeterminate 5.8 x 2.8 cm hypodensity in the anterior liver. Differential diagnosis includes necrotic neoplasm and hepatic abscess. Recommend further workup. 2. Multiple peritoneal nodules, mesenteric nodules and lymphadenopathy suspicious for metastases, most are stable but some have decreased in size. 3. Indeterminate subcutaneous nodule in the anterior abdominal wall concerning for metastases, stable. 08/18/2023 CT abdomen/pelvis ([facility] imaging) IMPRESSION: 1. Again noted is metastatic disease with [...] to marked enlargement of the prostate gland. ASSESSMENT/PLAN: 1. Malignant neoplasm of head of pancreas (HCC) - ICD9: 157.0, ICD10: C25.0 Stage III (T3, N2, M0) adenocarcinoma of the pancreas diagnosed November 2019. Status post Whipple's procedure 12/04/2019. Initial pathology revealed the primary tumor 8.1 cm, moderately differentiated adenocarcinoma invading through the duodenal wall, 7 of 27 lymph nodes involved. Germline analysis at the time of diagnosis negative. Due to postop complications he did not receive adjuvant treatment. Recurrent disease documented in January 2022. First-line treatment with gemcitabine plus Abraxane 03/16/2022 - 05/11/2022 (patient elected to stop chemo). Resumed [place] and Abraxane 11/23/2022 - 12/14/2022. Stopped due to poor tolerance. Restarted [place] and Abraxane dose reduced, 2 week on and 2 weeks off 02/01/2023. Worsening neuropathy and Abraxane stopped 05/05/2023. Restaging CT scans April 2023 revealed progressive disease. Second line chemotherapy with Julia regimen started May 2023. After cycle 5 the regimen was changed to every 3 weeks. Currently the patient is relatively stable clinically. Most recent restaging CT scans 11/09/2023 revealed suspicious areas in the liver suggesting possible progression, otherwise relatively stable. Because the patient was clinically stable and was tolerating treatment well it was like to continue the current regimen. The patient will start another cycle today. Pump disconnect in 2 days. Return in 3 weeks for follow-up and continued treatment. Will restage again at 3 months. If/when his disease progresses significantly will discuss options for third line therapy. If the patient's condition is poor he realizes hospice may be recommended. 2. Diabetes mellitus Continue management per PCP 3. History of DVT Stable off anticoagulants. 4. Neuropathy Stable on current medications. 5. Hypotension The patient was admitted to [facility] 10/16/2023 with dehydration, hypoglycemia, and hypotension. Blood pressure currently stable on midodrine. Continue management per PCP. 6. Central line complication - ICD9: 996.74, ICD10: T82.9XXA Since October 2023 the patient has had intermittent redness around the port tube under the skin over his right chest wall. Portogram 12/01/2023 at [facility] was negative. He was given oral antibiotics for possible infection and the symptoms have resolved. Will monitor closely for complications. If symptoms persist the port most likely would need to be changed. Vivek Smith MD documented in this encounter [facility] 12-05-2023 Telephone encounter Note Pt's notified of normal portogram results. Josephine Salomon RN [facility] Work Phone: 12-05-2023 Miscellaneous Notes Pt's notified of normal portogram results. Josephine Salomon RN documented in this encounter [facility] 11-29-2023 Telephone encounter Note Order faxed. Pt notified that we are ordering additional testing. Josephine Salomon RN [facility] Work Phone: 11-29-2023 Miscellaneous Notes Order faxed. Pt notified that we are ordering additional testing. Josephine Salomon RN Spoke with Mandi at [facility] who states they need a portogram order. Explained to Mandi that we do not have a portogram order. Will fax IR central line injection order and in comments put portogram. Mandi aware of pt's situation and what we're looking for and will schedule this according. Please sign pending orders. Thanks Josephine Salomon RN Called and spoke with radiology. They do not know what needs to be ordered for this and request that we call back tomorrow morning to Mandi at [phone] ext [phone] Josephine Salomon RN Did the xray evaluate the catheter during injection of dye? We needed the actual tubing evaluated as this is where the redness occurs for him. To me, it looks like just a typical cxr, we used to do [id number] or venograms, but I don't know if that is still possible. Greta Wetzel PA-C Call received from pt's asking what is going to be done about pt's port and recurring infection. With both of patients last two treatments his port site became red and he was placed on antibiotics for this. Pt is still on his antibiotic currently. CXR was negative. Please advise Josephine Salomon RN documented in this encounter [facility] 11-29-2023 Telephone encounter Note Spoke with Mandi at [facility] who states they need a portogram order. Explained to Mandi that we do not have a portogram order. Will fax IR central line injection order and in comments put portogram. Mandi aware of pt's situation and what we're looking for and will schedule this according. Please sign pending orders. Thanks Josephine Salomon RN [facility] 11-28-2023 Telephone encounter Note Called and spoke with radiology. They do not know what needs to be ordered for this and request that we call back tomorrow morning to Mandi at [phone] ext [phone] Josephine Salomon RN [facility] 11-28-2023 Telephone encounter Note Did the xray evaluate the catheter during injection of dye? We needed the actual tubing evaluated as this is where the redness occurs for him. To me, it looks like just a typical cxr, we used to do [id number] or venograms, but I don't know if that is still possible. Greta Wetzel PA-C [facility] 11-28-2023 Telephone encounter Note Call received from pt's asking what is going to be done about pt's port and recurring infection. With both of patients last two treatments his port site became red and he was placed on antibiotics for this. Pt is still on his antibiotic currently. CXR was negative. Please advise Josephine Salomon RN [facility] 11-22-2023 Telephone encounter Note Signed. PSS: please schedule Greta Wetzel PA-C [facility] 11-22-2023 Miscellaneous Notes Signed. PSS: please schedule Greta Wetzel PA-C Patient has arrived for pump DC notes redness above port. Denies pain, does report that this happened last treatment and resolved after a course of ATBX per Jacoby Wetzel PA-C. Assessment complete. Hub of port site skin noted WNL, no edema. Tubing superior to port hub noted dark red, minimal edema. Patient denies any S/S of infection (ed reinforced) vitals WNL, Port flsuhed with 30 ml pulsatile flush brisk blood return noted, no pain or edema. Jacoby Wetzel PA-C in to assess patient. Orders received for port Xray and ATBX Lashaun Riojas RN Patient has requested the xray be scheduled @[facility] if not [facility]. He prefers not to be schedule@[facility] Rx and xray orders pended. PATIENT WOULD LIKE TO BE CALLED documented in this encounter [facility] 11-22-2023 Telephone encounter Note Patient has arrived for pump DC notes redness above port. Denies pain, does report that this happened last treatment and resolved after a course of ATBX per Jacoby Wetzel PA-C. Assessment complete. Hub of port site skin noted WNL, no edema. Tubing superior to port hub noted dark red, minimal edema. Patient denies any S/S of infection (ed reinforced) vitals WNL, Port flsuhed with 30 ml pulsatile flush brisk blood return noted, no pain or edema. Jacoby Wetzel PA-C in to assess patient. Orders received for port Xray and ATBX Lashaun Riojas RN Patient has requested the xray be scheduled @[facility] if not [facility]. He prefers not to be schedule@[facility] Rx and xray orders pended. PATIENT WOULD LIKE TO BE CALLED [facility] 11-22-2023 Note [facility] 11-22-2023 History of Present illness Narrative Patient has arrived for pump DC notes redness above port. Denies pain, does report that this happened last treatment and resolved after a course of ATBX per Jacoby Wetzel PA-C. Assessment complete. Hub of port site skin noted WNL, no edema. Tubing superior to port hub noted dark red, minimal edema. Patient denies any S/S of infection (ed reinforced) vitals WNL, Port flsuhed with 30 ml pulsatile flush brisk blood return noted, no pain or edema. Jacoby Wetzel PA-C in to assess patient. Orders received for port Xray and ATBX Refer to phone enc for details Lashaun Riojas RN documented in this encounter [facility] 11-19-2023 Note [facility] 11-19-2023 History of Present illness Narrative PATIENT NAME: Trinity Perry DATE: 11/20/2023 PRIMARY CARE PHYSICIAN: Giovanni Salinas II, MD OTHER PHYSICIANS: Dr. Fara Monaco CC: This is a 73 year old male with metastatic pancreatic cancer, seen for scheduled follow-up and transfer of care (prior patient of Dr. Bess) INTERIM HISTORY: The patient currently is on chemotherapy with liposomal irinotecan and 5-FU/leucovorin infusion (Julia regimen). Last treatment (cycle 9) given 10/31/2023 through 11/02/2023. Restaging CT scans 11/17/2023 revealed a subtle abnormality in the liver suggesting necrotic neoplasm versus hepatic abscess. Scans otherwise relatively stable. Clinically he feels about the same. He denies any significant abdominal pain. Occasional nausea, no vomiting. No change in bowel habits. Appetite is relatively stable and he is eating what he wants. MEDICATIONS: midodrine (PROAMATINE) 2.5 mg tablet^Take 2.5 mg by mouth.^Disp: ^Rfl: sertraline (ZOLOFT) 25 mg tablet^Take 1 tablet by mouth once daily.^Disp: 30 tablet^Rfl: 2 prochlorperazine (COMPAZINE) 10 mg tablet^Take 1 tablet by mouth every 6 hours as needed.^Disp: 100 tablet^Rfl: 2 ondansetron (ZOFRAN) 8 mg tablet^Take 1 tablet by mouth every 8 hours as needed for nausea/vomiting.^Disp: 90 tablet^Rfl: 2 insulin glargine U-300 conc (TOUJEO MAX U-300 SOLOSTAR) 300 unit/mL (3 mL) inpn^Inject 300 mL subcutaneously once daily. At night^Disp: ^Rfl: NOVOLIN 70-30 FLEXPEN U-100 100 unit/mL (70-30) pen^INJECT 25 UNITS SUBCUTANEOUSLY IN THE MORNING then INJECT 25 UNITS SUBCUTANEOUSLY IN THE EVENING before a meal^Disp: ^Rfl: tamsulosin (FLOMAX) 0.4 mg^Take 0.4 mg by mouth once daily.^Disp: ^Rfl: cholecalciferol, vitamin D3, (VITAMIN D3 ORAL)^Take 1,000 Units by mouth once daily.^Disp: ^Rfl: ZINC ORAL^Take 50 mcg by mouth once daily.^Disp: ^Rfl: multivit-min/ferrous fumarate (MULTI VITAMIN ORAL)^Take by mouth once daily.^Disp: ^Rfl: finasteride (PROSCAR) 5 mg tablet^Take 5 mg by mouth once daily.^Disp: ^Rfl: pantoprazole DR (PROTONIX) 20 mg tablet^Take 1 tablet by mouth once daily.^Disp: 30 tablet^Rfl: 5 ALLERGIES: Patient has no known allergies. PAST MEDICAL HISTORY: PAST MEDICAL HISTORY Diagnosis Date Acute bilateral deep vein thrombosis (DVT) of upper extremities (HCC) Adenocarcinoma of head of pancreas (HCC) Diabetes mellitus due to underlying condition with diabetic polyneuropathy, without long-term current use of insulin (HCC) 06/07/2023 Gastric outlet obstruction Obstructive sleep apnea PAST SURGICAL HISTORY: PAST SURGICAL HISTORY Procedure Laterality Date INGUINAL HERNIA REPAIR HX Right 01/06/2021 PAST SURGICAL HISTORY OF 12/04/2019 Whipple Procedure 12/04/2019 PAST SURGICAL HISTORY OF 2019 drainage of abscess, placement of drainage caths PICC LINE INSERT/CONSULT 03/11/2020 PICC LINE INSERT/CONSULT 02/11/2021 REVIEW OF SYSTEMS: GENERAL: No weight loss, malaise or fevers. HEENT: Negative for frequent or significant headaches, No changes in hearing or vision, no nose bleeds or other nasal problems RESPIRATORY: Negative for cough, wheezing or shortness of breath. CARDIOVASCULAR: Negative for chest pain, leg swelling or palpitations. GI: Negative for abdominal discomfort, blood in stools or black stools or change in bowel habits : No history of dysuria, frequency or incontinence MUSCULOSKELETAL: Negative for: joint pain or swelling, back pain and muscle pain SKIN: Negative for lesions, rash, and itching. HEMATOLOGY/LYMPHOLOGY: Negative for prolonged bleeding, bruising easily or swollen nodes. NEURO: No history of headaches, syncope, paralysis, seizures or tremors PHYSICAL EXAM: Vitals: BP 134/77 Pulse 77 Temp 36.3 C (97.3 F) (Temporal) Resp 16 Ht 169.7 cm (5' 6.81 ) Wt 73.6 kg (162 lb 3.2 oz) SpO2 99% BMI 25.55 kg/m General appearance: well appearing, alert, in no acute distress, well-hydrated, well nourished Skin: skin color, texture, turgor normal, no suspicious rashes or lesions Head: normal Eyes: Anicteric sclera. Pupils are equally round and reactive to light. Extraocular movements are intact. Ears: negative findings: external ears normal to inspection and palpation Oropharynx: negative Neck: Supple, no adenopathy; thyroid symmetric, normal size Lymph Nodes: No Submandibular, cervical, supraclavicular, axillary, or inguinal lymphadenopathy present Breast: NL Symmetry, No Masses/Tenderness/Discharge, No Skin Changes Back: no tenderness to palpation Lungs: clear to auscultation, no wheezing or rhonchi Heart: Negative. RRR without murmur, gallop, or rubs. No ectopy. Abdomen: Normal abdominal exam, Abdomen soft, non-tender. Bowel sounds normal. No masses, organomegaly Rectal: Not done Extremities: Extremities normal. No deformities, edema, or skin discoloration. Good capillary refill. Musculoskeletal: No joint swelling, deformity, or tenderness. Peripheral pulses: Normal PATHOLOGY: 12/04/2019 Whipple's procedure FINAL DIAGNOSIS 1. Bile duct margin, excision (A) - Negative for carcinoma. 2. Gastric margin, excision (B) - Negative for carcinoma. - Two lymph nodes, negative for carcinoma (0/2). 3. Posterior SMA node, excision (C) - One lymph node, positive for adenocarcinoma (1/1). 4. 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 - See synoptic report. 5. Additional bile duct margin, excision (E) - Negative for carcinoma. 6. Distal bowel margin, excision (F) - Segment of small bowel, negative for carcinoma. Mismatch repair proficient, microsatellite stable. NGS analysis: Microsatellite stable, tumor mutational burden 2 KRAS [id number], RON [id number] positive LABORATORY DATA: Hemoglobin (g/dL) Date Value 11/20/2023 10.8 02/11/2021 9.1 Hematocrit (%) Date Value 11/20/2023 33.9 02/11/2021 28.1 WBC (k/uL) Date Value 11/20/2023 4.29 02/11/2021 8.84 Platelet Count (k/uL) Date Value 11/20/2023 245 02/11/2021 264 RADIOLOGY/OTHER STUDIES: 11/17/2023 CT chest IMPRESSION: 1. No interval change since 08/18/23. 2. Subcentimeter nodular opacities and mild reticulonodular opacities are stable. 11/17/2023 CT abdomen/pelvis IMPRESSION: 1. New indeterminate 5.8 x 2.8 cm hypodensity in the anterior liver. Differential diagnosis includes necrotic neoplasm and hepatic abscess. Recommend further workup. 2. Multiple peritoneal nodules, mesenteric nodules and lymphadenopathy suspicious for metastases, most are stable but some have decreased in size. 3. Indeterminate subcutaneous nodule in the anterior abdominal wall concerning for metastases, stable. 08/18/2023 CT abdomen/pelvis ([facility]) IMPRESSION: 1. Again noted is metastatic disease with [...] to marked enlargement of the prostate gland. ASSESSMENT/PLAN: 1. Malignant neoplasm of head of pancreas (HCC) - ICD9: 157.0, ICD10: C25.0 Stage III (T3, N2, M0) adenocarcinoma of the pancreas diagnosed November 2019. Status post Whipple's procedure 12/04/2019. Initial pathology revealed the primary tumor 8.1 cm, moderately differentiated adenocarcinoma invading through the duodenal wall, 7 of 27 lymph nodes involved. Germline analysis at the time of diagnosis negative. Due to postop complications he did not receive adjuvant treatment. Recurrent disease documented in January 2022. First-line treatment with gemcitabine plus Abraxane 03/16/2022 - 05/11/2022 (patient elected to stop chemo). Resumed [place] and Abraxane 11/23/2022 - 12/14/2022. Stopped due to poor tolerance. Restarted [place] and Abraxane dose reduced, 2 week on and 2 weeks off 02/01/2023. Worsening neuropathy and Abraxane stopped 05/05/2023. Restaging CT scans April 2023 revealed progressive disease. Second line chemotherapy with Julia regimen started May 2023. After cycle 5 the regimen was changed to every 3 weeks. Currently the patient is relatively stable clinically. Most recent restaging CT scans 11/09/2023 revealed suspicious areas in the liver suggesting possible progression, otherwise relatively stable. Options for management were discussed at length with the patient and his . Because he remains clinically stable he requested to continue his current regimen, with plans to give every 3 weeks. He will start a new cycle today. Return in 3 weeks for follow-up and treatment. Will restage again at 3 months. If/when his disease progresses significantly will discuss options for third line therapy. If the patient's condition is poor he realizes hospice may be recommended. 2. Diabetes mellitus Continue management per PCP 3. History of DVT Stable off anticoagulants. 4. Neuropathy Stable on current medications. 5. Hypotension The patient was admitted to [facility] 10/16/2023 with dehydration, hypoglycemia, and hypotension. Blood pressure currently stable on midodrine. Continue management per PCP. Vivek Smith MD documented in this encounter [facility] 11-17-2023 History of Present illness Narrative Radiology Service Progress Note DATE OF SERVICE: November 17, 2023 TIME: 10:24 AM PATIENT WEIGHT: 157LBS PATIENT IDENTITY VERIFICATION COMPLETED USING TWO (2) STANDARD IDENTIFIERS: Name and Date of confirmed by patient verbally. FALL SCREENING: Has the patient had 2 falls in the last year or 1 fall with injury or currently using an Ambulatory Assistive Device (Walker, Cane, Wheelchair, Crutches, etc.)? Yes, Patient High Risk for Falls What interventions were put in place to prevent falls during this visit? Offered Assistance with Transfers/Clothing and Instructed Patient to Remain Seated (Not on Exam Table) Until Exam PATIENT GENDER DATA: Male ALLERGIES: Reviewed and unchanged CONTRAST ALLERGY: No EXAM: CT -CONTRAST INDUCED NEPHROPATHY RISK FACTORS: Patient age > 60 years CREATININE: Creatinine Date Value Ref Range Status 10/31/2023 0.73 0.73 - 1.22 mg/dL Final 10/11/2023 0.71 (L) 0.73 - 1.22 mg/dL Final 10/03/2023 0.83 0.73 - 1.22 mg/dL Final Estimated Glomerular Filtration Rate Date Value Ref Range Status 10/31/2023 97 >=60 mL/min/1.73m Final Comment: Estimated Glomerular Filtration Rate (eGFR) is calculated using the 2020 CKD-EPI creatinine equation. This equation utilizes serum creatinine, sex, and age as parameters. The creatinine assay has traceable calibration to isotope dilution-mass spectrometry. Refer to KDIGO guidelines for clinical interpretation. In patients with unstable renal function, e.g. those with acute kidney injury, the eGFR may not accurately reflect actual GFR. eGFR- Date Value Ref Range Status 02/11/2021 >60 >60 Final P.O.C.T. RESULTS: POC done: Yes, See Lab Tab November 17, 2023 TREATMENT: N/A IV SITE: Ambulatory: A power injectable Mediport was accessed in the Right chest with a .75 inch 20 gauge needle. Blood Return, Flushed easily with normal saline, and No Complications port flushed with 30cc NS post scan IV SITE APPEARANCE: Clean,Dry and Intact SIGNATURE: Vaishali Marie RN PATIENT NAME: Trinity Perry DATE: November 17, 2023 TIME: 10:24 AM Radiology Service Progress Note PATIENT NAME: Trinity Perry DATE OF SERVICE: November 17, 2023 TIME: 11:05 AM PATIENT IDENTITY VERIFICATION COMPLETED USING TWO (2) IDENTIFIERS: Name and Date of confirmed by patient verbally. FALL SCREENING: Has the patient had 2 falls in the last year or 1 fall with injury or currently using an Ambulatory Assistive Device (Walker, Cane, Wheelchair, Crutches, etc.)? No PATIENT GENDER DATA: Male PATIENT RELEVANT IMPLANT DATA REVIEWED: Not Applicable PATIENT PRESENTS WITH AN IMPLANTABLE OR ATTACHED CLOTH MEASURER MACHINE: No RADIOLOGY DEPARTMENT: CT; Exam(s) Completed: Chest Abdomen Pelvis PERIPHERAL IV DATA: Site assessment: Clean,Dry and Intact, Site disposition Discontinued SIGNED BY: RT Amanda(R) November 17, 2023 11:05 AM POWER port scanned 02/2022 documented in this encounter [facility] 11-17-2023 Note [facility] 11-17-2023 Note [facility] 11-02-2023 Note [facility] 11-02-2023 History of Present illness Narrative PATIENT NAME: Trinity Perry [facility] NO.: [id number] ATTENDING PHYSICIAN: Grace Bess MD DATE OF SERVICE: November 02, 2023 (Elements copied from Dr. Bess's note dated October 31, 2023, have been reviewed and updated where appropriate, and all reflect current assessment and medical decision making during today's encounter, November 02, 2023) CC: urgent Diagnosis: 1. T3, N2, M0 pancreatic cancer. Tumor is 8.1 cm, moderately differentiated adenocarcinoma, tumor invades duodenal wall, peripancreatic soft tissue. Margins were negative. Lymphovascular space invasion was present, perineural invasion was present. Metastatic disease in 7 of 27 lymph nodes. 2. NGS Tissue Based: KRAS [id number], EGFR amplified and RAC 1 Amplified , [...] covered stent 4. CT 01/2022- recurrence 5. [place] and Abraxane 03/16/2022-05/11/2022 ( elected to stop chemo) 6. Resumed [place] and Abraxane 11/23/2022- 12/14/2022- Stopped due to poor tolerance 7. Restarted [place] and Abraxane dose reduced, 2 week on and 2 weeks off 02/01/2023, Worsening Neuropathy and Abraxane stopped 05/05/2023- CT 04/2023 with progressive disease 8. JULIA 06/07/2023- after cycle 5 requested q 3 weeks schedule HPI: Trinity returns for an urgent visit. I was asked to see the patient in the chemotherapy room. He was here for a pump d/c and reported redness to the skin over the tubing from his port up to his neck. He noticed it today. No fevers, chills. No warmth or swelling. The port itself is not red. There is no indication of infiltration of the 5FU. PAST MEDICAL HISTORY Diagnosis Date Acute bilateral [...] loss, malaise or fevers. No night sweats. Port site redenss PHYSICAL EXAMINATION: Vital signs reviewed and stable in chemotherapy nursing notes Port in right chest wall without erythema or swelling at port site, however skin covering the tubing from the port up to the SC region is erythematous. No swelling, no warmth. No blistering LABS: Glucose (mg/dL) Date Value 10/31/2023 141 02/11/2021 104 Potassium (mmol/L) Date Value 10/31/2023 4.5 02/11/2021 4.0 Sodium (mmol/L) Date Value 10/31/2023 136 02/11/2021 139 Chloride (mmol/L) Date Value 10/31/2023 101 02/11/2021 105 CO2 (mmol/L) Date Value 10/31/2023 27 02/11/2021 25 Creatinine (mg/dL) Date Value 10/31/2023 0.73 02/11/2021 0.49 BUN (mg/dL) Date Value 10/31/2023 13 02/11/2021 6 Anion Gap (mmol/L) Date Value 10/31/2023 8 02/11/2021 9 Calcium (mg/dL) Date Value 02/11/2021 9.5 Calcium, Total (mg/dL) Date Value 10/31/2023 10.7 Protein, Total (g/dL) Date Value 10/31/2023 7.5 02/11/2021 5.5 Albumin (g/dL) Date Value 10/31/2023 3.7 02/11/2021 2.5 Bilirubin, Total (mg/dL) Date Value 10/31/2023 0.5 02/11/2021 0.5 Alkaline Phosphatase (U/L) Date Value 10/31/2023 169 02/11/2021 84 AST (U/L) Date Value 10/31/2023 23 02/11/2021 10 ALT (U/L) Date Value 10/31/2023 31 02/11/2021 9 WBC Date Value Ref Range Status 10/31/2023 4.83 3.70 - 11.00 k/uL Final RBC Date Value Ref Range Status 10/31/2023 3.54 (L) 4.20 - 6.00 m/uL Final Hemoglobin Date Value Ref Range Status 10/31/2023 10.7 (L) 13.0 - 17.0 g/dL Final Hematocrit Date Value Ref Range Status 10/31/2023 34.1 (L) 39.0 - 51.0 % Final MCV Date Value Ref Range Status 10/31/2023 96.3 80.0 - 100.0 fL Final MCH Date Value Ref Range Status 10/31/2023 30.2 26.0 - 34.0 pg Final MCHC Date Value Ref Range Status 10/31/2023 31.4 30.5 - 36.0 g/dL Final RDW-CV Date Value Ref Range Status 10/31/2023 17.6 (H) 11.5 - 15.0 % Final Platelet Count Date Value Ref Range Status 10/31/2023 296 150 - 400 k/uL Final MPV Date Value Ref Range Status 10/31/2023 9.2 9.0 - 12.7 fL Final Abs Neut Date Value Ref Range Status 10/31/2023 2.66 1.45 - 7.50 k/uL Final Lymphocytes % Date Value Ref Range Status 10/31/2023 30.2 % Final Abs Lymph Date Value Ref Range Status 10/31/2023 1.46 1.00 - 4.00 k/uL Final Monocytes % Date Value Ref Range Status 10/31/2023 12.6 % Final Abs Buchanan Date Value Ref Range Status 10/31/2023 0.61 <0.87 k/uL Final Eosin% Date Value Ref Range Status 12/05/2022 0.9 % Final Abs Eosin Date Value Ref Range Status 10/31/2023 0.04 <0.46 k/uL Final Basophils % Date Value Ref Range Status 10/31/2023 0.6 % Final Abs Baso Date Value Ref Range Status 10/31/2023 0.03 <0.11 k/uL Final PATH: Whipple on [...] of the prostate gland. Assessment and Plan: Trinity Perry is a 73 year old year old [...] rising CA 19-9 and elected to restart [place] and Abraxane 11/23/2022. However, he had a very poor tolerance of therapy and has had declinind QOL. Therapy was held at that time 12/14/2022 Discussed the current status and rising CA 199 and options of no therapy, repeat chemo with dose modifications and or Xeloda. He wants to restart [place] and Abraxane, which he was on 02/01/2023 and dose reduced and have a 2 week on and 2 week off schedule. Slight delay due to Thanksgiving and URI, his neuropathy is worst and the Abraxane was stopped and continued Monongalia. CT 04/2023 wit progressive disease. I had a lisa discussion with Trinity and and daughter. Discussed hopsice vs. Second line chemo and the toxicities and he would like to proceed with the JULIA regimen. This was started on June 07, 2023. He appears to be tolerating therapy well, his imaging in July 2023 demonstrated's overall stable disease. Continue JULIA regimen on the q 3 week schedule and will transition care to Dr. Smith and also arrange follow up CT Continue nutrition follow up DM- Follow endocrine Cellulitis-the area around his port tubing is erythematous, but no warmth, fever or swelling. Will start Keflex today and he will call if it worsens or changes. . Greta Wetzel PA-C CC: Giovanni Hamlin MD I spent a total of 10 minutes on the date of the service which included preparing to see the patient, [id number] patient care, completing clinical documentation, performing a medically appropriate examination, counseling and educating the patient/family/caregiver, ordering medications, tests, or procedures, independently interpreting results (not separately reported), and communicating results to the patient/family/caregiver. documented in this encounter [facility] 11-02-2023 Note [facility] 11-02-2023 History of Present illness Narrative Patient has arrived for pump DC reports redness above port that he noticed this morning was the size of a thumb print now bigger. Denies pain, port head noted dry, intact, no redness, edema or drainage, flushes without difficulty, but the lumen superior to port is notably red. Trinity denies any S/S of infection. Discussed with Jacoby Wetzel PA-C who has assessed patient in the treatment room. She recommends and will order an Rx for ATBX, she has instructed patient. Patient verbalizes understanding and agrees with plan. Lashaun Riojas RN documented in this encounter [facility] 10-31-2023 Note Addended by: GRACE COHEN on: 10/31/2023 11:48 AM Modules accepted: Orders [facility] 10-31-2023 Miscellaneous Notes Addended by: GRACE BESS on: 10/31/2023 11:48 AM Modules accepted: Orders documented in this encounter [facility] 10-31-2023 Note [facility] 10-31-2023 History of Present illness Narrative PATIENT NAME: Trinity Perry CLINIC NO.: [id number] ATTENDING PHYSICIAN: Grace Bess MD DATE OF SERVICE: October 31, 2023 Some of the elements of this note have been copied from my previous progress note dated 08/23/2023. All the information has been reviewed carefully. Dear Dr. Hamlin here is an update on a follow up visit on male Trinity Perry at the clinic October 31, 2023\ Diagnosis: 1. T3, N2, M0 pancreatic cancer. Tumor is 8.1 cm, moderately differentiated adenocarcinoma, tumor invades duodenal wall, peripancreatic soft tissue. Margins were negative. Lymphovascular space invasion was present, perineural invasion was present. Metastatic disease in 7 of 27 lymph nodes. 2. NGS Tissue Based: KRAS [id number], EGFR amplified and RAC 1 Amplified , [...] covered stent 4. CT 01/2022- recurrence 5. [place] and Abraxane 03/16/2022-05/11/2022 ( elected to stop chemo) 6. Resumed [place] and Abraxane 11/23/2022- 12/14/2022- Stopped due to poor tolerance 7. Restarted [place] and Abraxane dose reduced, 2 week on and 2 weeks off 02/01/2023, Worsening Neuropathy and Abraxane stopped 05/05/2023- CT 04/2023 with progressive disease 8. JULIA 06/07/2023- after cycle 5 requested q 3 weeks schedule HPI: Trinity Perry is a 73 year old year old male here for follow up. He is doing much better with the q 3 weeks schedule and denies any nausea and was hospitalized fo light headedness and also hypoglycemia as well. He was placed on Midodrine and also denies sig diarrhea. PAST MEDICAL HISTORY Diagnosis Date Acute [...] of hands/feet. No weakness. PHYSICAL EXAMINATION: BP 118/81 Pulse 75 Temp (Src) 97.2 (Temporal) Resp 16 Ht 5' 6.811 (1.70m) Wt 154 lb 12.2 oz (70.2kg) SpO2 100% BMI 24.38 kg/(m^2). Wt 79.4 kg (175 lb) BMI [...] : Deferred LABS: Glucose (mg/dL) Date Value 10/11/2023 158 02/11/2021 104 Potassium Date Value 10/11/2023 Comment: Unable to assay due to interference from hemolysis. Suggest reorder as clinically indicated. 02/11/2021 4.0 mmol/L Sodium (mmol/L) Date Value 10/11/2023 128 02/11/2021 139 Chloride (mmol/L) Date Value 10/11/2023 96 02/11/2021 105 CO2 (mmol/L) Date Value 10/11/2023 23 02/11/2021 25 Creatinine (mg/dL) Date Value 10/11/2023 0.71 02/11/2021 0.49 BUN (mg/dL) Date Value 10/11/2023 14 02/11/2021 6 Anion Gap (mmol/L) Date Value 10/11/2023 9 02/11/2021 9 Calcium (mg/dL) Date Value 02/11/2021 9.5 Calcium, Total (mg/dL) Date Value 10/11/2023 9.7 Protein, Total (g/dL) Date Value 10/11/2023 7.0 02/11/2021 5.5 Albumin (g/dL) Date Value 10/11/2023 2.9 02/11/2021 2.5 Bilirubin, Total (mg/dL) Date Value 10/11/2023 0.5 02/11/2021 0.5 Alkaline Phosphatase (U/L) Date Value 10/11/2023 111 02/11/2021 84 AST (U/L) Date Value 10/11/2023 52 02/11/2021 10 ALT (U/L) Date Value 10/11/2023 18 02/11/2021 9 WBC Date Value Ref Range Status 10/31/2023 4.83 3.70 - 11.00 k/uL Final RBC Date Value Ref Range Status 10/31/2023 3.54 (L) 4.20 - 6.00 m/uL Final Hemoglobin Date Value Ref Range Status 10/31/2023 10.7 (L) 13.0 - 17.0 g/dL Final Hematocrit Date Value Ref Range Status 10/31/2023 34.1 (L) 39.0 - 51.0 % Final MCV Date Value Ref Range Status 10/31/2023 96.3 80.0 - 100.0 fL Final MCH Date Value Ref Range Status 10/31/2023 30.2 26.0 - 34.0 pg Final MCHC Date Value Ref Range Status 10/31/2023 31.4 30.5 - 36.0 g/dL Final RDW-CV Date Value Ref Range Status 10/31/2023 17.6 (H) 11.5 - 15.0 % Final Platelet Count Date Value Ref Range Status 10/31/2023 296 150 - 400 k/uL Final MPV Date Value Ref Range Status 10/31/2023 9.2 9.0 - 12.7 fL Final Abs Neut Date Value Ref Range Status 10/31/2023 2.66 1.45 - 7.50 k/uL Final Lymphocytes % Date Value Ref Range Status 10/31/2023 30.2 % Final Abs Lymph Date Value Ref Range Status 10/31/2023 1.46 1.00 - 4.00 k/uL Final Monocytes % Date Value Ref Range Status 10/31/2023 12.6 % Final Abs Buchanan Date Value Ref Range Status 10/31/2023 0.61 <0.87 k/uL Final Eosin% Date Value Ref Range Status 12/05/2022 0.9 % Final Abs Eosin Date Value Ref Range Status 10/31/2023 0.04 <0.46 k/uL Final Basophils % Date Value Ref Range Status 10/31/2023 0.6 % Final Abs Baso Date Value Ref Range Status 10/31/2023 0.03 <0.11 k/uL Final PATH: Whipple on November: SYNOPTIC REPORT OF MANJAR[facility]Z PATHOLOGIC FINDINGS TAHMINA, SOLANGEADER, OMENTUM: PANCREAS EXOCRINE WORKSHEET Specimen: Head [...] of the prostate gland. Assessment and Plan: Trinity Perry is a 73 year old year old [...] rising CA 19-9 and elected to restart [place] and Abraxane 11/23/2022. However, he had a very poor tolerance of therapy and has had declinind QOL. Therapy was held at that time 12/14/2022 Discussed the current status and rising CA 199 and options of no therapy, repeat chemo with dose modifications and or Xeloda. He wants to restart [place] and Abraxane, which he was on 02/01/2023 and dose reduced and have a 2 week on and 2 week off schedule. Slight delay due to Thanksgiving and URI, his neuropathy is worst and the Abraxane was stopped and continued [place]. CT 04/2023 wit progressive disease. I had a lisa discussion with Trinity and and daughter. Discussed hopsice vs. Second line chemo and the toxicities and he would like to proceed with the JULIA regimen. This was started on June 07, 2023. He appears to be tolerating therapy well, his imaging in July 2023 demonstrated's overall stable disease. Continue JULIA regimen on the q 3 week schedule and will transition care to Dr. Smith and also arrange follow up CT Continue nutrition follow up DM- Follow endocrine See back in 3 weeks for follow-up and labs and chemo and imaging Thank you for the kind referral. If there are any questions and or concerns please do not hesitate to contact me at [phone]. Grace Bess MD Hematology/Medical Oncology [facility] CC: Giovanni Hamlin MD I spent a total of 30 minutes on the date of the service which included preparing to see the patient, [id number] patient care, completing clinical documentation, obtaining and/or reviewing separately obtained history, performing a medically appropriate examination, counseling and educating the patient/family/caregiver, ordering medications, tests, or procedures, and independently interpreting results (not separately reported). documented in this encounter [facility] 10-18-2023 Telephone encounter Note EMERGENCY ROOM CALL BACK Today's date: October 18, 2023 Patient identified by name and date of . YES Primary Cancer Diagnosis: pancreatic cancer Reason for Emergency Room Visit: weakness, altered mental status Time of day presented to Emergency Room evening If Mon-Monday during business hours: N/A Patient with any new symptom issues: No Psychosocial Risk Factors: None FOLLOW UP Patient reminded of her follow-up appointment with [facility] provider, Dr Bess on 11/03/23: Yes Next Shear Operator outreach with patient scheduled? As needed Discussed with pt and how he is doing. Pt states he's really tired, wasn't able to get much sleep while he was in the hospital. Pt was started on 1/2 pill of midodrine per , but he hasn't started this yet because pharmacy needed to order it in. Pt will be picking this up later today. Pt has follow up with PCP on 10/26. States he hasn't had any episodes of confusion since being discharged. Pt is increasing his fluid intake. Denies needs at this time. PATIENT EDUCATION/REINFORCEMENT Patient verbalizes understanding of when to seek Medical Attention? YES Patient verbalizes understanding of after hours and weekend phone number? YES Patient verbalizes understanding of next outreach appointment? YES Josephine Salomon RN [facility] Work Phone: 10-18-2023 Miscellaneous Notes EMERGENCY ROOM CALL BACK Today's date: October 18, 2023 Patient identified by name and date of . YES Primary Cancer Diagnosis: pancreatic cancer Reason for Emergency Room Visit: weakness, altered mental status Time of day presented to Emergency Room evening If Mon-Monday during business hours: N/A Patient with any new symptom issues: No Psychosocial Risk Factors: None FOLLOW UP Patient reminded of her follow-up appointment with [facility] provider, Dr Bess on 11/03/23: Yes Next Shear Operator outreach with patient scheduled? As needed Discussed with pt and how he is doing. Pt states he's really tired, wasn't able to get much sleep while he was in the hospital. Pt was started on 1/2 pill of midodrine per , but he hasn't started this yet because pharmacy needed to order it in. Pt will be picking this up later today. Pt has follow up with PCP on 10/26. States he hasn't had any episodes of confusion since being discharged. Pt is increasing his fluid intake. Denies needs at this time. PATIENT EDUCATION/REINFORCEMENT Patient verbalizes understanding of when to seek Medical Attention? YES Patient verbalizes understanding of after hours and weekend phone number? YES Patient verbalizes understanding of next outreach appointment? YES Josephine Salomon RN Available records scanned. Patient is still there under observation. Pt's calls stating pt went to the hospital last night because he wasn't responding to her. She states she doesn't think his glucometer is working right. Pt's sugar was much lower when the EMS checked it than what his was reading. states pt was very dehydrated as well. Darline: can you get records from [facility] please. Thanks Josephine Salomon RN documented in this encounter [facility] 10-17-2023 Telephone encounter Note Available records scanned. Patient is still there under observation. [facility] 10-17-2023 Telephone encounter Note Pt's calls stating pt went to the hospital last night because he wasn't responding to her. She states she doesn't think his glucometer is working right. Pt's sugar was much lower when the EMS checked it than what his was reading. states pt was very dehydrated as well. Darline: can you get records from [facility] please. Thanks Josephine Salomon RN [facility] 10-17-2023 Telephone encounter Note LVM to notify pt that script he requested was sent. [facility] 10-17-2023 Miscellaneous Notes LVM to notify pt that script he requested was sent. Cipro sent Dr. Osorio- if you are okay sending a script pt uses [facility] [place]. Pt here for pump dc today with c/o increasing urinary frequency. Greta ran a UA on 10/10 and pt notified that it was negative. Pt asking if something can just be called in to have it on hand in case it keeps getting worse. Pt is aware that greta and tylou are on vacation but requested we send a message. documented in this encounter [facility] 10-13-2023 Telephone encounter Note Cipro sent [facility] 10-13-[address] Osorio- if you are okay sending a script pt uses [facility] [place]. [facility] 10-13-2023 Telephone encounter Note Pt here for pump dc today with c/o increasing urinary frequency. Greta ran a UA on 10/10 and pt notified that it was negative. Pt asking if something can just be called in to have it on hand in case it keeps getting worse. Pt is aware that greta and tylou are on vacation but requested we send a message. [facility] 10-11-2023 Note HNO ID: [id number] Author: SAMINA RAE MA Service: ? Author Type: Coordinator Of Genetic Services Type: Progress Notes Filed: 10/11/2023 13:27 Note Text: Back office UA test performed. Results entered in Epic and doctor notified. Samina Rae MA [facility] 10-11-2023 History of Present illness Narrative Back office UA test performed. Results entered in [employer] and doctor notified. Samina Rae MA documented in this encounter [facility] 10-11-2023 Nurse Note Pt complaints of fatigue and weakness today. Samina Rae MA [facility] 10-11-2023 History of Present illness Narrative PATIENT NAME: Trinity Gupta [facility] NO.: [id number] ATTENDING PHYSICIAN: Grace Bess MD DATE OF [...] lymph nodes. 2. NGS Tissue Based: KRAS [id number], EGFR amplified and RAC 1 Amplified , [...] covered stent. 4. CT 01/2022- Recurrence. 5. Monong[place] and Abraxane 03/16/2022-05/11/2022 (Elected to stop chemo). 6. Resumed Mon[place] and Abraxane 11/23/2022- 12/14/2022- Stopped due to poor tolerance. 7. Restarted [place] and Abraxane dose reduced, 2 week on and 2 weeks off 02/01/2023, Worsening Neuropathy and Abraxane stopped 05/05/2023- CT 04/2023 with progressive disease. 8. JULIA 06/07/2023. HPI: Trinity returns for follow up. His treatment was [...] Range Status 10/11/2023 7.7 % Final Abs Buchanan Date Value Ref Range Status 10/11/2023 0.77 [...] of the prostate gland. Assessment and Plan: Trinity Perry is a 73 year old year old [...] rising CA 19-9 and elected to restart [place] and Abraxane 11/23/2022. However, he had a very poor tolerance of therapy and has had decline in QOL. Therapy was held at that time 12/14/2022. Discussed the current status and rising CA 199 and options of no therapy, repeat chemo with dose modifications and or Xeloda. He wants to restart [place] and Abraxane, which he was on 02/01/2023 and dose reduced and have a 2 week on and 2 week off schedule. Slight delay due to Thanksgiving and URI, his neuropathy is worst and the Abraxane was stopped and continued Mon[place]alia. CT 04/[address] Bess had a lisa discussion with Trinity and and daughter. Discussed hopsice vs. Second [...] which included preparing to see the patient, [id number] patient care, completing clinical documentation, performing a medically appropriate examination, counseling and educating the patient/family/caregiver, ordering medications, tests, or procedures, independently interpreting results (not separately reported), and communicating results to the patient/family/caregiver. documented in this encounter [facility] 10-11-2023 Note [facility] 10-11-2023 Nurse Note Pt complaints of fatigue and weakness today. Samina Rae MA documented in this encounter [facility] 10-05-2023 Telephone encounter Note Voicemail has not been set up yet. No way to leave a message. Josephine Salomon RN [facility] Work Phone: 10-05-2023 Miscellaneous Notes Voicemail has not been set up yet. No way to leave a message. Josephine Salomon RN ----- Message from Greta Wetzel PA-C sent at 10/04/2023 12:56 PM EDT ----- Please call with improving ca19-9 documented in this encounter [facility] 10-05-2023 Telephone encounter Note ----- Message from Greta Wetzel PA-C sent at 10/04/2023 12:56 PM EDT ----- Please call with improving ca19-9 [facility] 10-04-2023 Telephone encounter Note Pt's voicemail has not been set up yet. Unable to leave a message. Josephine Salomon RN [facility] Work Phone: 10-04-2023 Miscellaneous Notes Pt's voicemail has not been set up yet. Unable to leave a message. Josephine Salomon RN ----- Message from Greta Wetzel PA-C sent at 10/03/2023 4:09 PM EDT ----- Please call with negative cxr documented in this encounter [facility] 10-04-2023 Telephone encounter Note ----- Message from Greta Wetzel PA-C sent at 10/03/2023 4:09 PM EDT ----- Please call with negative cxr [facility] 10-04-2023 Telephone encounter Note Spoke with pt spouse. She discussed with pt. Legs not as swollen, will hold off for now and call back if needed. Denies further questions, needs or concerns at this time. KOFI Travis RN [facility] 10-04-2023 Miscellaneous Notes Spoke with pt [...] swelling if he wants. Greta Wetzel PA-C [facility] [place] department called with NEGATIVE DVT report. Key Travis RN Patient has been scheduled for STAT US today @ [facility] 10/02 between 1 & 1:30 pm. If positive, Radiology will call w/ results. Ora Jones documented in this encounter [facility] 10-03-2023 Telephone encounter Note Spoke with spouse, Brittni.aware of negative DVT per US, and MM recommendation. Pt is home, she is driving. She will discuss with him and call tomorrow with decision on Lasix. Key Travis RN [facility] 10-03-2023 Telephone encounter Note Please inform the patient of negative DVT. We could start lasix 20 mg daily for a week and see if it helps the swelling if he wants. Greta Wetzel PA-C [facility] 10-03-2023 Telephone encounter Note [facility] [place] department called with NEGATIVE DVT report. Key Travis RN [facility] 10-03-2023 History of Present illness Narrative Radiology Service Progress Note PATIENT NAME: Trinity Perry DATE OF SERVICE: October 03, 2023 TIME: 12:12 PM PATIENT IDENTITY VERIFICATION COMPLETED USING TWO (2) IDENTIFIERS: Name and Date of confirmed by patient verbally. FALL SCREENING: Has the patient had 2 falls in the last year or 1 fall with injury or currently using an Ambulatory Assistive Device (Walker, Cane, Wheelchair, Crutches, etc.)? No PATIENT GENDER DATA: Male PATIENT RELEVANT IMPLANT DATA REVIEWED: Not Applicable PATIENT PRESENTS WITH AN IMPLANTABLE OR ATTACHED CLOTH MEASURER MACHINE: No RADIOLOGY DEPARTMENT: General X-ray: Exam(s) Completed: Chest X-Ray PERIPHERAL IV DATA: Not applicable SIGNED BY: RT Amanda(R) October 03, 2023 12:12 PM documented in this encounter [facility] 10-03-2023 Note [facility] 10-03-2023 Telephone encounter Note Patient has been scheduled for STAT today @ [facility] 10/02 between 1 & 1:30 pm. If positive, Radiology will call w/ results. Ora Jones [facility] 10-03-2023 History of Present illness Narrative PATIENT NAME: Trinity Perry [facility] NO.: [id number] ATTENDING PHYSICIAN: Grace Bess MD DATE OF [...] lymph nodes. 2. NGS Tissue Based: KRAS [id number], EGFR amplified and RAC 1 Amplified , [...] covered stent. 4. CT 01/2022- Recurrence. 5. [place] and Abraxane 03/16/2022-05/11/2022 (Elected to stop chemo). 6. Resumed [place] and Abraxane 11/23/2022- 12/14/2022- Stopped due to poor tolerance. 7. Restarted [place] and Abraxane dose reduced, 2 week on and 2 weeks off 02/01/2023, Worsening Neuropathy and Abraxane stopped 05/05/2023- CT 04/2023 with progressive disease. 8. JULIA 06/07/2023. HPI: Trinity returns for follow up. He is here [...] polyneuropathy, without long-term current use of insulin ([facility]) 06/07/2023 Gastric outlet obstruction Obstructive sleep apnea [...] Range Status 10/03/2023 12.7 % Final Abs Buchanan Date Value Ref Range Status 10/03/2023 1.25 [...] of the prostate gland. Assessment and Plan: Trinity Perry is a 73 year old year old [...] rising CA 19-9 and elected to restart [place] and Abraxane 11/23/2022. However, he had a very poor tolerance of therapy and has had decline in QOL. Therapy was held at that time 12/14/2022. Discussed the current status and rising CA 199 and options of no therapy, repeat chemo with dose modifications and or Xeloda. He wants to restart [place] and Abraxane, which he was on 02/01/2023 and dose reduced and have a 2 week on and 2 week off schedule. Slight delay due to Thanksgiving and URI, his neuropathy is worst and the Abraxane was stopped and continued [place]. CT 04/[address] Bess had a lisa discussion with Trinity and and daughter. Discussed hopsice vs. Second [...] depression. I have ordered CXR today with levtheresauin to start. Doppler of his legs. And [...] which included preparing to see the patient, [id number] patient care, completing clinical documentation, performing a medically appropriate examination, counseling and educating the patient/family/caregiver, ordering medications, tests, or procedures, independently interpreting results (not separately reported), and communicating results to the patient/family/caregiver. documented in this encounter [facility] 10-03-2023 Note [facility] 09-25-2023 Telephone encounter Note I will place these orders so my day is not delayed, however Yordy saw the patient last and should be the one to place the orders. Greta Wetzel PA-C [facility] 09-25-2023 Miscellaneous Notes I will place these orders so my day is not delayed, however Yordy saw the patient last and should be the one to place the orders. Greta Wetzel PA-C Patient has an appt on 10/03/23. Would you like labs, if so place orders. Janet Dotson MA documented in this encounter [facility] 09-25-2023 Telephone encounter Note Patient has an appt on 10/03/23. Would you like labs, if so place orders. Janet Dotson MA [facility] 09-18-2023 Telephone encounter Note Pt's notified, verbalized understanding Josephine Salomon RN [facility] Work Phone: 09-18-2023 Miscellaneous Notes Pt's [...] Josephine Salomon RN documented in this encounter [facility] 09-18-2023 Telephone encounter Note Agree if fevers and or worse he needs to let us know [facility] 09-18-2023 Telephone encounter Note Pt's calls [...] this helps. Please advise Josephine Salomon RN [facility] 09-13-2023 Note [facility] 09-13-2023 History of Present illness Narrative PATIENT NAME: Trinity Perry CLINIC NO.: [id number] ATTENDING PHYSICIAN: Grace Bess MD DATE OF SERVICE: September 13, 2023 Some of the elements of this note have been copied from my previous progress note dated 08/23/2023. All the information has been reviewed carefully. Dear Dr. Hamlin here is an update on a follow up visit on male Trinity Perry at the clinic September 13, 2023. Diagnosis: 1. T3, N2, M0 pancreatic cancer. Tumor is 8.1 cm, moderately differentiated adenocarcinoma, tumor invades duodenal wall, peripancreatic soft tissue. Margins were negative. Lymphovascular space invasion was present, perineural invasion was present. Metastatic disease in 7 of 27 lymph nodes. 2. NGS Tissue Based: KRAS [id number], EGFR amplified and RAC 1 Amplified , [...] covered stent. 4. CT 01/2022- Recurrence. 5. [place] and Abraxane 03/16/2022-05/11/2022 (Elected to stop chemo). 6. Resumed [place] and Abraxane 11/23/2022- 12/14/2022- Stopped due to poor tolerance. 7. Restarted [place] and Abraxane dose reduced, 2 week on and 2 weeks off 02/01/2023, Worsening Neuropathy and Abraxane stopped 05/05/2023- CT 04/2023 with progressive disease. 8. JULIA 06/07/2023. HPI: Trinity Perry is a 73 year old year old [...] Range Status 09/13/2023 15.2 % Final Abs Buchanan Date Value Ref Range Status 09/13/2023 0.59 [...] of the prostate gland. Assessment and Plan: Trinity Perry is a 73 year old year old [...] rising CA 19-9 and elected to restart [place] and Abraxane 11/23/2022. However, he had a very poor tolerance of therapy and has had declinind QOL. Therapy was held at that time 12/14/2022. Discussed the current status and rising CA 199 and options of no therapy, repeat chemo with dose modifications and or Xeloda. He wants to restart [place] and Abraxane, which he was on 02/01/2023 and dose reduced and have a 2 week on and 2 week off schedule. Slight delay due to Thanksgiving and URI, his neuropathy is worst and the Abraxane was stopped and continued [place]. CT 04/2023 wit progressive disease. I had a lisa discussion with Trinity and and daughter. Discussed hopsice vs. Second [...] hesitate to contact Grace Bess MD at [phone]. Yordy Moncada APRN.[facility] Hematology/Medical Oncology [facility] CC: Giovanni Hamlin MD I spent a total of 30 minutes on the date of the service which included preparing to see the patient, [id number] patient care, completing clinical documentation, obtaining and/or reviewing separately obtained history, performing a medically appropriate examination, counseling and educating the patient/family/caregiver, ordering medications, tests, or procedures, independently interpreting results (not separately reported), and communicating results to the patient/family/caregiver. documented in this encounter [facility] 08-23-2023 Note [facility] 08-23-2023 History of Present illness Narrative PATIENT NAME: Trinity Perry [facility] NO.: [id number] ATTENDING PHYSICIAN: Grace Bess MD DATE OF SERVICE: August 23, 2023 Some of the elements of this note have been copied from my previous progress note dated 08/02/2023. All the information has been reviewed carefully. Dear Dr. Hamlin here is an update on a follow up visit on male Trinity Perry at the clinic August 23, 2023 Diagnosis: 1. T3, N2, M0 pancreatic cancer. Tumor is 8.1 cm, moderately differentiated adenocarcinoma, tumor invades duodenal wall, peripancreatic soft tissue. Margins were negative. Lymphovascular space invasion was present, perineural invasion was present. Metastatic disease in 7 of 27 lymph nodes. 2. NGS Tissue Based: KRAS [id number], EGFR amplified and RAC 1 Amplified , [...] covered stent 4. CT 01/2022- recurrence 5. [place] and Abraxane 03/16/2022-05/11/2022 ( elected to stop chemo) 6. Resumed [place] and Abraxane 11/23/2022- 12/14/2022- Stopped due to poor tolerance 7. Restarted [place] and Abraxane dose reduced, 2 week on and 2 weeks off 02/01/2023, Worsening Neuropathy and Abraxane stopped 05/05/2023- CT 04/2023 with progressive disease 8. JULIA 06/07/2023 HPI: Trinity Perry is a 73 year old year old [...] Range Status 08/23/2023 15.0 % Final Abs Buchanan Date Value Ref Range Status 08/23/2023 0.72 [...] of the prostate gland. Assessment and Plan: Trinity Perry is a 73 year old year old [...] rising CA 19-9 and elected to restart [place] and Abraxane 11/23/2022. However, he had a very poor tolerance of therapy and has had declinind QOL. Therapy was held at that time 12/14/2022 Discussed the current status and rising CA 199 and options of no therapy, repeat chemo with dose modifications and or Xeloda. He wants to restart [place] and Abraxane, which he was on 02/01/2023 and dose reduced and have a 2 week on and 2 week off schedule. Slight delay due to Thanksgiving and URI, his neuropathy is worst and the Abraxane was stopped and continued [place]. CT 04/2023 wit progressive disease. I had a lisa discussion with Trinity and and daughter. Discussed hopsice vs. Second [...] do not hesitate to contact me at [phone]. Grace Bess MD Hematology/Medical Oncology [facility] CC: Giovanni Hamlin MD I spent a total of 30 minutes on the date of the service which included preparing to see the patient, [id number] patient care, completing clinical documentation, obtaining and/or reviewing separately obtained history, performing a medically appropriate examination, counseling and educating the patient/family/caregiver, ordering medications, tests, or procedures, and independently interpreting results (not separately reported). documented in this encounter [facility] 08-21-2023 Miscellaneous Notes Patient coming in Monday01/03/24 for follow up treatment. Please add lab orders. Thanks. Christi Blum MA documented in this encounter [facility] 08-18-2023 History of Present illness Narrative Radiology Service Progress Note DATE OF SERVICE: August 18, 2023 TIME: 9:43 AM PATIENT WEIGHT: 159LBS PATIENT IDENTITY VERIFICATION COMPLETED USING TWO (2) STANDARD IDENTIFIERS: Name and Date of confirmed by patient verbally. FALL SCREENING: Has the patient had 2 falls in the last year or 1 fall with injury or currently using an Ambulatory Assistive Device (Walker, Cane, Wheelchair, Crutches, etc.)? No PATIENT GENDER DATA: Male ALLERGIES: Reviewed and unchanged CONTRAST ALLERGY: No EXAM: CT -CONTRAST INDUCED NEPHROPATHY RISK FACTORS: Patient age > 60 years and Diabetic: No CREATININE: Creatinine Date Value Ref Range Status 08/02/2023 0.86 0.73 - 1.22 mg/dL Final 07/19/2023 0.83 0.73 - 1.22 mg/dL Final 07/05/2023 0.85 0.73 - 1.22 mg/dL Final Estimated Glomerular Filtration Rate Date Value Ref Range Status 08/02/2023 92 >=60 mL/min/1.73m Final Comment: Estimated Glomerular Filtration Rate (eGFR) is calculated using the 2020 CKD-EPI creatinine equation. This equation utilizes serum creatinine, sex, and age as parameters. The creatinine assay has traceable calibration to isotope dilution-mass spectrometry. Refer to KDIGO guidelines for clinical interpretation. In patients with unstable renal function, e.g. those with acute kidney injury, the eGFR may not accurately reflect actual GFR. eGFR- Date Value Ref Range Status 02/11/2021 >60 >60 Final P.O.C.T. RESULTS: POC done: Yes, See Lab Tab August 18, 2023 TREATMENT: No Hydration needed. IV SITE: Ambulatory: A power injectable Mediport was accessed in the Right chest with a 0.75 inch 20 gauge needle. Blood Return, Flushed easily with normal saline, Good Blood Return Post Injection, No Complications, and Complications port accessed via sterile technique pt angelica well good blood return pre and post scan post scan 20 ml NS port deaccessed IV SITE APPEARANCE: Clean,Dry and Intact SIGNATURE: Sarah Beth Liz RN PATIENT NAME: Trinity Perry DATE: August 18, 2023 TIME: 9:43 AM Radiology Service Progress Note PATIENT NAME: Trinity Perry DATE OF SERVICE: August 18, 2023 TIME: 10:07 AM PATIENT IDENTITY VERIFICATION COMPLETED USING TWO (2) IDENTIFIERS: Name and Date of confirmed by patient verbally. FALL SCREENING: Has the patient had 2 falls in the last year or 1 fall with injury or currently using an Ambulatory Assistive Device (Walker, Cane, Wheelchair, Crutches, etc.)? No PATIENT GENDER DATA: Male PATIENT RELEVANT IMPLANT DATA REVIEWED: Not Applicable PATIENT PRESENTS WITH AN IMPLANTABLE OR ATTACHED CLOTH MEASURER MACHINE: No RADIOLOGY DEPARTMENT: CT; Exam(s) Completed: Chest Abdomen Pelvis PERIPHERAL IV DATA: PORT 03/12/22 SIGNED BY: RT Janice(R) August 18, 2023 10:07 AM documented in this encounter [facility] 08-18-2023 Note [facility] 08-18-2023 Note [facility] 08-11-2023 Miscellaneous Notes Call placed to patient again, no answer on both numbers. Left detailed message on [facility] number regarding new updated appts. Ora Jones [...] I know he has his appointment with [facility], labs, and Chemo Treatment on MondayAugust 15. The Patient and his , did not want any of the openings for CT Scans prior to August 15 that I offered. They wanted certain days and certain times, nor did the patient want to come without his . Thanks! DEVYN Pelayo documented in this encounter [facility] 08-09-2023 Miscellaneous Notes Pt called today [...] has been eating normal. Denies nausea/vomiting. Josephine Salomon, RN documented in this encounter [facility] 08-02-2023 Note [facility] 08-02-2023 History of Present illness Narrative PATIENT NAME: Trinity Perry [facility] NO.: [id number] ATTENDING PHYSICIAN: Grace Bess MD DATE OF SERVICE: August 02, 2023 Some of the elements of this note have been copied from my previous progress note dated 06/21/2023. All the information has been reviewed carefully. Dear Dr. Hamlin here is an update on a follow up visit on male Trinity Perry at the clinic August 02, 2023 Diagnosis: 1. T3, N2, M0 pancreatic cancer. Tumor is 8.1 cm, moderately differentiated adenocarcinoma, tumor invades duodenal wall, peripancreatic soft tissue. Margins were negative. Lymphovascular space invasion was present, perineural invasion was present. Metastatic disease in 7 of 27 lymph nodes. 2. NGS Tissue Based: KRAS [id number], EGFR amplified and RAC 1 Amplified , [...] covered stent 4. CT 01/2022- recurrence 5. [place] and Abraxane 03/16/2022-05/11/2022 ( elected to stop chemo) 6. Resumed [place] and Abraxane 11/23/2022- 12/14/2022- Stopped due to poor tolerance 7. Restarted [place] and Abraxane dose reduced, 2 week on and 2 weeks off 02/01/2023, Worsening Neuropathy and Abraxane stopped 05/05/2023- CT 04/2023 with progressive disease 8. JULIA 06/07/2023 HPI: Trinity Perry is a 73 year old year old [...] Range Status 08/02/2023 8.9 % Final Abs Buchanan Date Value Ref Range Status 08/02/2023 0.48 [...] of the prostate gland. Assessment and Plan: Trinity Perry is a 73 year old year old [...] rising CA 19-9 and elected to restart [place] and Abraxane 11/23/2022. However, he had a very poor tolerance of therapy and has had declinind QOL. Therapy was held at that time 12/14/2022 Discussed the current status and rising CA 199 and options of no therapy, repeat chemo with dose modifications and or Xeloda. He wants to restart [place] and Abraxane, which he was on 02/01/2023 and dose reduced and have a 2 week on and 2 week off schedule. Slight delay due to Thanksgiving and URI, his neuropathy is worst and the Abraxane was stopped and continued [place]. CT 04/2023 wit progressive disease. I had a lisa discussion with Trinity and and daughter. Discussed hopsice vs. Second [...] do not hesitate to contact me at [phone]. Grace Bess MD Hematology/Medical Oncology [facility] CC: Giovanni Hamlin MD I spent a total of 30 minutes on the date of the service which included preparing to see the patient, [id number] patient care, completing clinical documentation, obtaining and/or reviewing separately obtained history, performing a medically appropriate examination, counseling and educating the patient/family/caregiver, ordering medications, tests, or procedures, and independently interpreting results (not separately reported). documented in this encounter [facility] 07-19-2023 Note [facility] 07-19-2023 History of Present illness Narrative [...] irinotecan, leucovorin, 5FU Previous Treatment(s): Whipple 12/04/2019, Monongalia/Abraxane Pt denies any chewing/swallowing issues, denies current [...] Dosing Weight: 71.5 kg Estimated kilocalorie needs: 1764-3587 kilocalories determined by 30-35 kcal/kg Estimated protein needs: 72-107 grams determined by 1.0-1.5 g/kg Dosing weight Estimated fluid needs: ~9478-3409 milliliters based on 1 mL per kcal [...] MS, RDN, LD documented in this encounter [facility] 07-19-2023 Note [facility] 07-19-2023 History of Present illness Narrative PATIENT NAME: Trinity Perry CLINIC NO.: [id number] ATTENDING PHYSICIAN: Grace Bess MD DATE OF SERVICE: July 19, 2023 Some of the elements of this note have been copied from my previous progress note dated 07/05/2023. All the information has been reviewed carefully. Dear Dr. Hamlin here is an update on a follow up visit on male Trinity Perry at the clinic July 05, 2023. Diagnosis: 1. T3, N2, M0 pancreatic cancer. Tumor is 8.1 cm, moderately differentiated adenocarcinoma, tumor invades duodenal wall, peripancreatic soft tissue. Margins were negative. Lymphovascular space invasion was present, perineural invasion was present. Metastatic disease in 7 of 27 lymph nodes. 2. NGS Tissue Based: KRAS [id number], EGFR amplified and RAC 1 Amplified , [...] covered stent 4. CT 01/2022- Recurrence. 5. [place] and Abraxane 03/16/2022-05/11/2022 ( elected to stop chemo). 6. Resumed [place] and Abraxane 11/23/2022- 12/14/2022- Stopped due to poor tolerance 7. Restarted [place] and Abraxane dose reduced, 2 week on and 2 weeks off 02/01/2023, Worsening Neuropathy and Abraxane stopped 05/05/2023- CT 04/2023 with progressive disease. 8. JULIA 06/07/2023. HPI: Trinity Perry returns for follow-up and continued treatment. He [...] Range Status 07/19/2023 7.7 % Final Abs Buchanan Date Value Ref Range Status 07/19/2023 0.46 [...] of the prostate gland. Assessment and Plan: Trinity Perry is a 73 year old year old [...] rising CA 19-9 and elected to restart [place] and Abraxane 11/23/2022. However, he had a very poor tolerance of therapy and has had declinind QOL. Therapy was held at that time 12/14/2022. Discussed the current status and rising CA 199 and options of no therapy, repeat chemo with dose modifications and or Xeloda. He wants to restart [place] and Abraxane, which he was on 02/01/2023 and dose reduced and have a 2 week on and 2 week off schedule. Slight delay due to Thanksgiving and URI, his neuropathy is worst and the Abraxane was stopped and continued [place]. CT 04/2023 with progressive disease. We had a lisa discussion with Trinity and and daughter. Discussed hopsice vs. second [...] not hesitate to contact Dr. Bess at [phone]. Yordy Moncada APRN.[facility] Hematology/Medical Oncology [facility] CC: Giovanni Hamlin MD I spent a total of 30 minutes on the date of the service which included preparing to see the patient, [id number] patient care, completing clinical documentation, obtaining and/or reviewing separately obtained history, performing a medically appropriate examination, counseling and educating the patient/family/caregiver, ordering medications, tests, or procedures, independently interpreting results (not separately reported), and communicating results to the patient/family/caregiver. documented in this encounter [facility] 07-05-2023 Note [facility] 07-05-2023 History of Present illness Narrative PATIENT NAME: Trinity Perry [facility] NO.: [id number] ATTENDING PHYSICIAN: Grace Bess MD DATE OF SERVICE: July 05, 2023 Some of the elements of this note have been copied from my previous progress note dated 06/21/2023. All the information has been reviewed carefully. Dear Dr. Hamlin here is an update on a follow up visit on male Trinity Perry at the clinic July 05, 2023. Diagnosis: 1. T3, N2, M0 pancreatic cancer. Tumor is 8.1 cm, moderately differentiated adenocarcinoma, tumor invades duodenal wall, peripancreatic soft tissue. Margins were negative. Lymphovascular space invasion was present, perineural invasion was present. Metastatic disease in 7 of 27 lymph nodes. 2. NGS Tissue Based: KRAS [id number], EGFR amplified and RAC 1 Amplified , [...] covered stent 4. CT 01/2022- Recurrence. 5. [place] and Abraxane 03/16/2022-05/11/2022 ( elected to stop chemo). 6. Resumed [place] and Abraxane 11/23/2022- 12/14/2022- Stopped due to poor tolerance 7. Restarted [place] and Abraxane dose reduced, 2 week on and 2 weeks off 02/01/2023, Worsening Neuropathy and Abraxane stopped 05/05/2023- CT 04/2023 with progressive disease. 8. JULIA 06/07/2023. HPI: Trinity Perry is a 73 year old year old [...] polyneuropathy, without long-term current use of insulin ([facility]) 06/07/2023 Gastric outlet obstruction Obstructive sleep apnea Social History Tobacco Use Smoking status: Former Packs/day: 1.00 Years: 35.00 Additional pack years: 0.00 Total pack years: 35.00 Types: Cigarettes Quit date: 2019 Years since quittin.1 Passive exposure: Past Smokeless [...] Range Status 07/05/2023 6.9 % Final Abs Buchanan Date Value Ref Range Status 07/05/2023 0.41 [...] of the prostate gland. Assessment and Plan: Trinity Perry is a 73 year old year old [...] rising CA 19-9 and elected to restart [place] and Abraxane 11/23/2022. However, he had a very poor tolerance of therapy and has had declinind QOL. Therapy was held at that time 12/14/2022. Discussed the current status and rising CA 199 and options of no therapy, repeat chemo with dose modifications and or Xeloda. He wants to restart [place] and Abraxane, which he was on 02/01/2023 and dose reduced and have a 2 week on and 2 week off schedule. Slight delay due to Thanksgiving and URI, his neuropathy is worst and the Abraxane was stopped and continued [place]. CT 04/2023 with progressive disease. We had a lisa discussion with Trinity and and daughter. Discussed hopsice vs. second [...] not hesitate to contact Dr. Bess at [phone]. Yordy Moncada APRN.[employer] Hematology/Medical Oncology [facility] CC: Giovanni Hamlin MD I spent a total of 30 minutes on the date of the service which included preparing to see the patient, [id number] patient care, completing clinical documentation, obtaining and/or reviewing separately obtained history, performing a medically appropriate examination, counseling and educating the patient/family/caregiver, ordering medications, tests, or procedures, independently interpreting results (not separately reported), and communicating results to the patient/family/caregiver. documented in this encounter [facility] 06-23-2023 Miscellaneous Notes Pt's calls requesting tumor marker results. Notified her that they were not drawn at his visit on Monday, and are ordered for next time. Josephine Salomon RN documented in this encounter [facility] 06-21-2023 Note [facility] 06-21-2023 Note [facility] 06-07-2023 Note [facility] 06-07-2023 Note [facility] 06-07-2023 Note [facility] 05-24-2023 Note [facility] 05-18-2023 History of Present illness Narrative Radiology Service Progress Note DATE OF SERVICE: May 18, 2023 TIME: 10:23 AM PATIENT WEIGHT: 163LBS PATIENT IDENTITY VERIFICATION COMPLETED USING TWO (2) STANDARD IDENTIFIERS: Name and Date of confirmed by patient verbally. FALL SCREENING: Has the patient had 2 falls in the last year or 1 fall with injury or currently using an Ambulatory Assistive Device (Walker, Cane, Wheelchair, Crutches, etc.)? Yes, Patient High Risk for Falls What interventions were put in place to prevent falls during this visit? Instructed Patient to Call for Help if Needed and Offered Assistance with Transfers/Clothing PATIENT GENDER DATA: Male ALLERGIES: Reviewed and unchanged CONTRAST ALLERGY: No EXAM: CT -CONTRAST INDUCED NEPHROPATHY RISK FACTORS: Patient age > 60 years and pt on nephrotoxic chemo CREATININE: Creatinine Date Value Ref Range Status 05/18/2023 0.80 0.73 - 1.22 mg/dL Final 05/12/2023 0.75 0.73 - 1.22 mg/dL Final 05/05/2023 0.87 0.73 - 1.22 mg/dL Final Estimated Glomerular Filtration Rate Date Value Ref Range Status 05/18/2023 94 >=60 mL/min/1.73m Final Comment: Estimated Glomerular Filtration Rate (eGFR) is calculated using the 2020 CKD-EPI creatinine equation. This equation utilizes serum creatinine, sex, and age as parameters. The creatinine assay has traceable calibration to isotope dilution-mass spectrometry. Refer to KDIGO guidelines for clinical interpretation. In patients with unstable renal function, e.g. those with acute kidney injury, the eGFR may not accurately reflect actual GFR. eGFR- Date Value Ref Range Status 02/11/2021 >60 >60 Final P.O.C.T. RESULTS: POC done: Yes, See Lab Tab May 18, 2023 TREATMENT: N/A IV SITE: Ambulatory: A power injectable Mediport was accessed in the Right chest with a .75 inch 20 gauge needle. Blood Return, Flushed easily with normal saline, Good Blood Return Post Injection, and No Complications Flushed with 20ccNS without difficulty IV SITE APPEARANCE: Clean,Dry and Intact SIGNATURE: Vaishali Marie RN PATIENT NAME: Trinity Perry DATE: May 18, 2023 TIME: 10:23 AM Radiology Service Progress Note PATIENT NAME: Trinity Perry DATE OF SERVICE: May 18, 2023 TIME: 10:33 AM PATIENT IDENTITY VERIFICATION COMPLETED USING TWO (2) IDENTIFIERS: Name and Date of confirmed by patient verbally. FALL SCREENING: Has the patient had 2 falls in the last year or 1 fall with injury or currently using an Ambulatory Assistive Device (Walker, Cane, Wheelchair, Crutches, etc.)? No PATIENT GENDER DATA: Male PATIENT RELEVANT IMPLANT DATA REVIEWED: Not Applicable RADIOLOGY DEPARTMENT: CT; Exam(s) Completed: Chest Abdomen Pelvis With IV and Oral contrast PERIPHERAL IV DATA: Not applicable SIGNED BY: Allie Amador RT(R) May 18, 2023 10:33 AM POWER port scanned 03/02/2022-NS documented in this encounter [facility] 05-18-2023 Note [facility] 05-18-2023 Note [facility] 05-12-2023 Note [facility] 05-08-2023 Telephone encounter Note Please order Cre for upcoming CT-pt on nephrotoxic chemo Thank You! Vaishali Marie RN [facility] 05-08-2023 Miscellaneous Notes Please order Cre for upcoming CT-pt on nephrotoxic chemo Thank You! Vaishali Marie RN documented in this encounter [facility] 05-05-2023 Note HNO ID: [id number] Author: Daja Carnes RN Service: ? 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 Daja Carnes RN [facility] 05-05-2023 History of Present illness Narrative It was confirmed with to hold abraxane today due to worsening neuropathy. Daja Carnes RN documented in this encounter [facility] 05-05-2023 Note [facility] 05-05-2023 History of Present illness Narrative PATIENT NAME: Trinity Perry [facility] NO.: [id number] ATTENDING PHYSICIAN: Grace Bess MD DATE OF SERVICE: May 05, 2023 Some of the elements of this note have been copied from my previous progress note dated 03/08/2023. All the information has been reviewed carefully. Dear Dr. Hamlin here is an update on a follow up visit on male Trinity Perry at the clinic May 05, 2023 Diagnosis: 1. T3, N2, M0 pancreatic cancer. Tumor is 8.1 cm, moderately differentiated adenocarcinoma, tumor invades duodenal wall, peripancreatic soft tissue. Margins were negative. Lymphovascular space invasion was present, perineural invasion was present. Metastatic disease in 7 of 27 lymph nodes. 2. NGS Tissue Based: KRAS [id number], EGFR amplified and RAC 1 Amplified , [...] covered stent 4. CT 01/2022- recurrence 5. [place] and Abraxane 03/16/2022-05/11/2022 ( elected to stop chemo) 6. Resumed [place] and Abraxane 11/23/2022- 12/14/2022- Stopped due to poor tolerance 7. Restarted [place] and Abraxane dose reduced, 2 week on and 2 weeks off 02/01/2023 HPI: Trinity Perry is a 72 year old year old [...] Range Status 05/05/2023 7.7 % Final Abs Buchanan Date Value Ref Range Status 05/05/2023 1.12 [...] subsequent studies is suggested. Assessment and Plan: Trinity Perry is a 72 year old year old [...] rising CA 19-9 and elected to restart [place] and Abraxane 11/23/2022. However, he had a very poor tolerance of therapy and has had declinind QOL. Therapy was held at that time 12/14/2022 Discussed the current status and rising CA 199 and options of no therapy, repeat chemo with dose modifications and or Xeloda. He wants to restart [place] and Abraxane, which he was on 02/01/2023 [...] do not hesitate to contact me at [phone]. Grace Bess MD Hematology/Medical Oncology [facility] CC: Giovanni Hamlin MD I spent a total of 30 minutes on the date of the service which included preparing to see the patient, [id number] patient care, completing clinical documentation, obtaining and/or reviewing separately obtained history, performing a medically appropriate examination, counseling and educating the patient/family/caregiver, ordering medications, tests, or procedures, and independently interpreting results (not separately reported). documented in this encounter [facility] 04-07-2023 Miscellaneous Notes Pt notified of results. Josephine Salomon RN ----- Message from Grace Bess MD sent at 04/07/2023 9:10 AM EST ----- Please call with tumor marker. documented in this encounter [facility] 04-05-2023 Miscellaneous Notes Addended by: YORDY MONCADA on: 04/05/2023 03:25 PM Modules accepted: Orders documented in this encounter [facility] 04-05-2023 History of Present illness Narrative PATIENT NAME: Trinity Perry [facility] NO.: [id number] ATTENDING PHYSICIAN: Grace Bess MD DATE OF [...] lymph nodes. 2. NGS Tissue Based: KRAS [id number], EGFR amplified and RAC 1 Amplified , [...] covered stent. 4. CT 01/2022- Recurrence. 5. [place] and Abraxane 03/16/2022-05/11/2022 ( elected to stop chemo) 6. Resumed [place] and Abraxane 11/23/2022- 12/14/2022- Stopped due to poor tolerance 7. Restarted [place] and Abraxane dose reduced, 2 week on and 2 weeks off 02/01/2023 HPI: Trinity Perry returns for follow-up and cycle 3-day 8 [...] Range Status 04/05/2023 2.0 % Final Abs Buchanan Date Value Ref Range Status 04/05/2023 0.21 [...] subsequent studies is suggested. Assessment and Plan: Trinity Perry is a 72 year old year old [...] rising CA 19-9 and elected to restart [place] and Abraxane 11/23/2022. However, he had a very poor tolerance of therapy and has had declined QOL. Therapy was held at that time 12/14/2022. CA 199 began to rise and options of no therapy, repeat chemo with dose modifications and/or Xeloda. He wanted to restart [place] and Abraxane, which he was on 02/01/2023 [...] chemotherapy and will monitor closely. Yordy Moncada APRN.BUSINESS PROGRAMMER CC: Giovanni Hamlin MD I spent a total of 30 minutes on the date of the service which included preparing to see the patient, [id number] patient care, completing clinical documentation, obtaining and/or reviewing separately obtained history, performing a medically appropriate examination, counseling and educating the patient/family/caregiver, ordering medications, tests, or procedures, independently interpreting results (not separately reported), and communicating results to the patient/family/caregiver. documented in this encounter [facility] 04-05-2023 Note [facility] 04-04-2023 Miscellaneous Notes Pt notified of results. Josephine Salomon RN Please call with ca19-9 results documented in this encounter [facility] 03-30-2023 History of Present illness Narrative PATIENT NAME: Trinity Perry [facility] NO.: [id number] ATTENDING PHYSICIAN: Grace Bess MD DATE OF [...] lymph nodes. 2. NGS Tissue Based: KRAS [id number], EGFR amplified and RAC 1 Amplified , [...] covered stent 4. CT 01/2022- recurrence 5. [place] and Abraxane 03/16/2022-05/11/2022 ( elected to stop chemo) 6. Resumed [place] and Abraxane 11/23/2022- 12/14/2022- Stopped due to poor tolerance 7. Restarted [place] and Abraxane dose reduced, 2 week on [...] Range Status 03/30/2023 10.4 % Final Abs Buchanan Date Value Ref Range Status 03/30/2023 0.82 [...] subsequent studies is suggested. Assessment and Plan: Trinity Perry is a 72 year old year old [...] rising CA 19-9 and elected to restart [place] and Abraxane 11/23/2022. However, he had a very poor tolerance of therapy and has had declined QOL. Therapy was held at that time 12/14/2022 CA 199 began to rise and options of no therapy, repeat chemo with dose modifications and/or Xeloda. He wanted to restart [place] and Abraxane, which he was on 02/01/2023 [...] Giovanni Hamlin MD documented in this encounter [facility] 03-30-2023 Note [facility] 03-08-2023 History of Present illness Narrative PATIENT NAME: Trinity Perry [facility] NO.: [id number] ATTENDING PHYSICIAN: Grace Bess MD DATE OF SERVICE: March 08, 2023 Some of the elements of this note have been copied from my previous progress note dated 03/01/2023. All the information has been reviewed carefully. Dear Dr. Hamlin here is an update on a follow up visit on male Trinity Perry at the clinic March 08, 2023 Diagnosis: 1. T3, N2, M0 pancreatic cancer. Tumor is 8.1 cm, moderately differentiated adenocarcinoma, tumor invades duodenal wall, peripancreatic soft tissue. Margins were negative. Lymphovascular space invasion was present, perineural invasion was present. Metastatic disease in 7 of 27 lymph nodes. 2. NGS Tissue Based: KRAS [id number], EGFR amplified and RAC 1 Amplified , [...] covered stent 4. CT 01/2022- recurrence 5. [place] and Abraxane 03/16/2022-05/11/2022 ( elected to stop chemo) 6. Resumed [place] and Abraxane 11/23/2022- 12/14/2022- Stopped due to poor tolerance 7. Restarted [place] and Abraxane dose reduced, 2 week on and 2 weeks off 02/01/2023 HPI: Trinity Perry is a 72 year old year old [...] Range Status 03/01/2023 11.6 % Final Abs Buchanan Date Value Ref Range Status 03/01/2023 0.94 [...] SYNOPTIC REPORT OF MANJARREZ PATHOLOGIC FINDINGS HAMIPPAUGUST, SOLANGEADER, OMENTUM: PANCREAS EXOCRINE WORKSHEET Specimen: Head [...] subsequent studies is suggested. Assessment and Plan: Trinity Perry is a 72 year old year old [...] rising CA 19-9 and elected to restart [place] and Abraxane 11/23/2022. However, he had a very poor tolerance of therapy and has had declinind QOL. Therapy was held at that time 12/14/2022 Discussed the current status and rising CA 199 and options of no therapy, repeat chemo with dose modifications and or Xeloda. He wants to restart [place] and Abraxane, which he was on 02/01/2023 [...] do not hesitate to contact me at [phone]. Grace Bess MD Hematology/Medical Oncology [facility] CC: Giovanni Hamlin MD I spent a total of 30 minutes on the date of the service which included preparing to see the patient, [id number] patient care, completing clinical documentation, obtaining and/or reviewing separately obtained history, performing a medically appropriate examination, counseling and educating the patient/family/caregiver, ordering medications, tests, or procedures, and independently interpreting results (not separately reported). documented in this encounter [facility] 03-02-2023 Miscellaneous Notes Pt notified of results and is agreeable to this. Josephine Salomon RN ----- Message from Grace Bess MD sent at 03/02/2023 1:57 PM EDT ----- Tell him that his Tumor marker is stable and if he is ok we will continue the chemo for now documented in this encounter [facility] 02-08-2023 History of Present illness Narrative Dex discontinued from tx plan per due to elevated blood sugars. Florinda Rincon RN documented in this encounter [facility] 02-08-2023 History of Present illness Narrative PATIENT NAME: Trinity Perry [facility] NO.: [id number] ATTENDING PHYSICIAN: Grace Bess MD DATE OF SERVICE: February 08, 2023 Some of the elements of this note have been copied from Dr. Bess's previous progress note dated 02/01/2023. All the information has been reviewed carefully. Dear Dr. Hamlin here is an update on a follow up visit on male Trinity Perry at the clinic February 08, 2023. Diagnosis: 1. T3, N2, M0 pancreatic cancer. Tumor is 8.1 cm, moderately differentiated adenocarcinoma, tumor invades duodenal wall, peripancreatic soft tissue. Margins were negative. Lymphovascular space invasion was present, perineural invasion was present. Metastatic disease in 7 of 27 lymph nodes. 2. NGS Tissue Based: KRAS [id number], EGFR amplified and RAC 1 Amplified , [...] stent . 4. CT 01/2022- Recurrence. 5. [place] and Abraxane 03/16/2022-05/11/2022. (Elected to stop chemo) 6. Resumed [place] and Abraxane 11/23/2022- 12/14/2022- Stopped due to poor tolerance. 7. Restarted [place] and Abraxane dose reduced, 2 week on and 2 weeks off 02/01/2023. HPI: Trinity Perry is a 72 year old year old [...] Range Status 02/08/2023 4.3 % Final Abs Buchanan Date Value Ref Range Status 02/08/2023 0.22 [...] subsequent studies is suggested. Assessment and Plan: Trinity Perry is a 72 year old year old [...] rising CA 19-9 and elected to restart [place] and Abraxane 11/23/2022. However, he had a very poor tolerance of therapy and has had declinind QOL. Therapy was held at that time 12/14/2022. Restarted [place] and Abraxane 02/01/2023. Will continue with dose [...] hesitate to contact Grace Bess MD at [phone]. Yordy Moncada APRN.[employer] Hematology/Medical Oncology [facility] CC: Giovanni Hamlin MD I spent a total of 30 minutes on the date of the service which included preparing to see the patient, [id number] patient care, completing clinical documentation, obtaining and/or reviewing separately obtained history, performing a medically appropriate examination, counseling and educating the patient/family/caregiver, ordering medications, tests, or procedures, independently interpreting results (not separately reported), and communicating results to the patient/family/caregiver. documented in this encounter [facility] 02-01-2023 Miscellaneous Notes He likely has [...] Elisha Reece RN documented in this encounter [facility] 02-01-2023 History of Present illness Narrative PATIENT NAME: Trinity Perry CLIN[facility] NO.: [id number] ATTENDING PHYSICIAN: Grace Bess MD DATE OF SERVICE: February 01, 2023 Some of the elements of this note have been copied from my previous progress note dated 02/01/2023. All the information has been reviewed carefully. Dear Dr. Hamlin here is an update on a follow up visit on male Trinity Perry at the clinic February 01, 2023 Diagnosis: 1. T3, N2, M0 pancreatic cancer. Tumor is 8.1 cm, moderately differentiated adenocarcinoma, tumor invades duodenal wall, peripancreatic soft tissue. Margins were negative. Lymphovascular space invasion was present, perineural invasion was present. Metastatic disease in 7 of 27 lymph nodes. 2. NGS Tissue Based: KRAS [id number], EGFR amplified and RAC 1 Amplified , [...] covered stent 4. CT 01/2022- recurrence 5. [place] and Abraxane 03/16/2022-05/11/2022 ( elected to stop chemo) 6. Resumed [place] and Abraxane 11/23/2022- 12/14/2022- Stopped due to poor tolerance 7. Restarted [place] and Abraxane dose reduced, 2 week on and 2 weeks off 02/01/2023 HPI: Trinity Perry is a 72 year old year old [...] Range Status 02/01/2023 6.1 % Final Abs Buchanan Date Value Ref Range Status 02/01/2023 0.70 [...] subsequent studies is suggested. Assessment and Plan: Trinity Perry is a 72 year old year old [...] rising CA 19-9 and elected to restart [place] and Abraxane 11/23/2022. However, he had a very poor tolerance of therapy and has had declinind QOL. Therapy was held at that time 12/14/2022 Discussed the current status and rising CA 199 and options of no therapy, repeat chemo with dose modifications and Xeloda. He wants to restart [place] and Abraxane. Will dose reduce and have a 2 week on and 2 week off schedule Continue nutrition follow up Anemia- Improved off chemo DM- Follow endocrine See back next week for day 8 Thank you for the kind referral. If there are any questions and or concerns please do not hesitate to contact me at [phone]. Grace Bess MD Hematology/Medical Oncology [facility] CC: Giovanni Hamlin MD I spent a total of 30 minutes on the date of the service which included preparing to see the patient, [id number] patient care, completing clinical documentation, obtaining and/or reviewing separately obtained history, performing a medically appropriate examination, counseling and educating the patient/family/caregiver, ordering medications, tests, or procedures, and independently interpreting results (not separately reported). documented in this encounter [facility] 01-04-2023 History of Present illness Narrative PATIENT NAME: Trinity Perry [facility] NO.: [id number] ATTENDING PHYSICIAN: Grace Bess MD DATE OF SERVICE: January 04, 2023 Some of the elements of this note have been copied from my previous progress note dated 12/14/2022. All the information has been reviewed carefully. Dear Dr. Hamlin here is an update on a follow up visit on male Trinity Perry at the clinic January 04, 2023 Diagnosis: 1. T3, N2, M0 pancreatic cancer. Tumor is 8.1 cm, moderately differentiated adenocarcinoma, tumor invades duodenal wall, peripancreatic soft tissue. Margins were negative. Lymphovascular space invasion was present, perineural invasion was present. Metastatic disease in 7 of 27 lymph nodes. 2. NGS Tissue Based: KRAS [id number], EGFR amplified and RAC 1 Amplified , [...] covered stent 4. CT 01/2022- recurrence 5. [place] and Abraxane 03/16/2022-05/11/2022 ( elected to stop chemo) 6. Resumed [place] and Abraxane 11/23/2022- 12/14/2022- Stopped due to poor tolerance HPI: Trinity Perry is a 72 year old year old [...] Range Status 01/04/2023 8.8 % Final Abs Buchanan Date Value Ref Range Status 01/04/2023 0.87 [...] subsequent studies is suggested. Assessment and Plan: Trinity Perry is a 72 year old year old [...] rising CA 19-9 and elected to restart [place] and Abraxane 11/23/2022. However, he has very [...] do not hesitate to contact me at [phone]. Grace Bess MD Hematology/Medical Oncology [facility] CC: Giovanni Hamlin MD I spent a total of 30 minutes on the date of the service which included preparing to see the patient, [id number] patient care, completing clinical documentation, obtaining and/or reviewing separately obtained history, performing a medically appropriate examination, counseling and educating the patient/family/caregiver, ordering medications, tests, or procedures, and independently interpreting results (not separately reported). documented in this encounter [facility] 12-21-2022 Miscellaneous Notes Pt's notified of results and that script was called into pharmacy. They will pick this up tonight. Josephine Salomon RN Call placed to pt's home phone, no answer, voicemail has not been set up yet. Call placed to [facility] and message left requesting a call back to our office. Josephine Salomon RN Thank you. Please call patient and explain. Since he is having increased phlegm production and mild cough, I will send antibiotic to his local pharmacy as well. Greta Wetzel PA-C Call received from riley Choi at [facility] stating pt's CT is negative for PE. Shows subtle nodular tree-in-bud opacities predominantly in the right upper lobe concerning for infectious bronchiolitis. Josephine Salomon RN documented in this encounter [facility] 12-21-2022 History of Present illness Narrative Left sutures to forehead removed as ordered per Jacoby Wetzel PA-C, patient tolerated well, S/S of infections reinforced patient and spouse verbalizes understanding Lashaun Riojas RN documented in this encounter [facility] 12-21-2022 History of Present illness Narrative PATIENT NAME: Trinity Gupta [facility] NO.: [id number] ATTENDING PHYSICIAN: Grace Bess MD DATE OF [...] lymph nodes. 2. NGS Tissue Based: KRAS [id number], EGFR amplified and RAC 1 Amplified , [...] covered stent 4. CT 01/2022- recurrence 5. [place] and Abraxane 03/16/2022-05/11/2022 ( elected to stop chemo) 6. Resumed [place] and Abraxane 11/23/2022 HPI: Alfred returns for day 8 of treatment. He complains of weakness, fatigue and LINDSEY. He feel while at [facility] 12/15/22 and went to [facility] ER. Ct head and cervical spine [...] Range Status 12/21/2022 8.5 % Final Abs Buchanan Date Value Ref Range Status 12/21/2022 0.32 [...] subsequent studies is suggested. Assessment and Plan: Trinity Perry is a 72 year old year old [...] rising CA 19-9 and elected to restart [place] and Abraxane 11/23/2022. [place] dose was decreased with cycle 2 day [...] Giovanni Hamlin MD documented in this encounter [facility] 12-15-2022 Hospital Discharge instructions Additional Instructions Tetanus was updated today in emergency department Sutures should be removed in 5 to 7 days Apply ice to affected area Neosporin daily Sunscreen after healed to reduce scarring For signs of infection redness, swelling, purulent drainage follow-up immediately Follow-up with your doctor for recheck in the next 3 to 5 days [facility] Work Phone: 12-05-2022 History of Present illness Narrative PATIENT NAME: Trinity Perry [facility] NO.: [id number] ATTENDING PHYSICIAN: Grace Bess MD DATE OF [...] lymph nodes. 2. NGS Tissue Based: KRAS [id number], EGFR amplified and RAC 1 Amplified , [...] covered stent 4. CT 01/2022- recurrence 5. [place] and Abraxane 03/16/2022-05/11/2022 ( elected to stop chemo) 6. Resumed [place] and Abraxane 11/23/2022 HPI: Trinity returns for labs. Received day 8 cycle [...] Range Status 11/30/2022 4.3 % Final Abs Buchanan Date Value Ref Range Status 11/30/2022 0.26 [...] subsequent studies is suggested. Assessment and Plan: Trinity Perry is a 72 year old year old [...] rising CA 19-9 and elected to restart [place] and Abraxane 11/23/2022. Tolerating well, however, is having significant anemia, likely from chemotherapy. Will type and cross and transfuse 1 unit of PRBCs. He will return in 1 week for the next cycle of chemotherapy, and will like need dose reductions. Continue nutrition follow up DM- Follow endocrine Greta Wetzel PA-C CC: Giovanni Hamlin MD documented in this encounter [facility] 11-30-2022 History of Present illness Narrative PATIENT NAME: Trinity Perry [facility] NO.: [id number] ATTENDING PHYSICIAN: Grace Bess MD DATE OF SERVICE: November 30, 2022 Some of the elements of this note have been copied from my previous progress note dated 11/10/2022. All the information has been reviewed carefully. Dear Dr. Hamlin here is an update on a follow up visit on male Trinity Perry at the clinic November 30, 2022 Diagnosis: 1. T3, N2, M0 pancreatic cancer. Tumor is 8.1 cm, moderately differentiated adenocarcinoma, tumor invades duodenal wall, peripancreatic soft tissue. Margins were negative. Lymphovascular space invasion was present, perineural invasion was present. Metastatic disease in 7 of 27 lymph nodes. 2. NGS Tissue Based: KRAS [id number], EGFR amplified and RAC 1 Amplified , [...] covered stent 4. CT 01/2022- recurrence 5. [place] and Abraxane 03/16/2022-05/11/2022 ( elected to stop chemo) 6. Resumed [place] and Abraxane 11/23/2022 HPI: Trinity Perry is a 72 year old year old [...] Range Status 11/30/2022 4.3 % Final Abs Buchanan Date Value Ref Range Status 11/30/2022 0.26 [...] subsequent studies is suggested. Assessment and Plan: Trinity Perry is a 72 year old year old [...] rising CA 19-9 and elected to restart [place] and Abraxane 11/23/2022 Continue nutrition follow up Anemia- Will repeat CBC next week as he is more anemic with the start of the chemo DM- Follow endocrine RTC next week for cbc check Thank you for the kind referral. If there are any questions and or concerns please do not hesitate to contact me at [phone]. Grace Bess MD Hematology/Medical Oncology [facility] CC: Giovanni Hamlin MD I spent a total of 30 minutes on the date of the service which included preparing to see the patient, [id number] patient care, completing clinical documentation, obtaining and/or reviewing separately obtained history, performing a medically appropriate examination, counseling and educating the patient/family/caregiver, ordering medications, tests, or procedures, and independently interpreting results (not separately reported). documented in this encounter [facility] 11-28-[address] Keyes [...] appt Thank you documented in this encounter [facility] 11-23-2022 History of Present illness Narrative PATIENT NAME: Trinity Gupta [facility] NO.: [id number] ATTENDING PHYSICIAN: Grace Bess MD DATE OF [...] lymph nodes. 2. NGS Tissue Based: KRAS [id number], EGFR amplified and RAC 1 Amplified , [...] covered stent 4. CT 01/2022- recurrence 5. 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 Today he complains of complete exhaustion . [...] Range Status 11/23/2022 7.1 % Final Abs Buchanan Date Value Ref Range Status 11/23/2022 0.77 [...] subsequent studies is suggested. Assessment and Plan: Trinity Perry is a 72 year old year old [...] Giovanni Hamlin MD documented in this encounter [facility] 11-10-2022 Miscellaneous Notes Spoke with pt's [...] Josephine Salomon RN documented in this encounter [facility] 11-10-2022 History of Present illness Narrative PATIENT NAME: Trinity Perry CLINIC NO.: [id number] ATTENDING PHYSICIAN: Grace Bess MD DATE OF SERVICE: November 10, 2022 Some of the elements of this note have been copied from my previous progress note dated 09/29/2022. All the information has been reviewed carefully. Dear Dr. Hamlin here is an update on a follow up visit on male Trinity Perry at the clinic November 10, 2022 Diagnosis: 1. T3, N2, M0 pancreatic cancer. Tumor is 8.1 cm, moderately differentiated adenocarcinoma, tumor invades duodenal wall, peripancreatic soft tissue. Margins were negative. Lymphovascular space invasion was present, perineural invasion was present. Metastatic disease in 7 of 27 lymph nodes. 2. NGS Tissue Based: KRAS [id number], EGFR amplified and RAC 1 Amplified , [...] covered stent 4. CT 01/2022- recurrence 5. [place] and Abraxane 03/16/2022-05/11/2022 ( elected to stop chemo) HPI: Trinity Perry is a 72 year old year old [...] Range Status 09/29/2022 8.0 % Final Abs Buchanan Date Value Ref Range Status 09/29/2022 0.68 [...] Previously described ill-defined soft tissue in the lelen hepatis is not well seen on the [...] subsequent studies is suggested. Assessment and Plan: Trinity Perry is a 72 year old year old [...] resuming theroay again and they agreed Restart [place] and Abraxane again next week. Continue nutrition follow up Anemia- Monitor- Improved Resume chemo next week Thank you for the kind referral. If there are any questions and or concerns please do not hesitate to contact me at [phone]. Grace Bess MD Hematology/Medical Oncology [facility] CC: Giovanni Hamlin MD I spent a total of 30 minutes on the date of the service which included preparing to see the patient, [id number] patient care, completing clinical documentation, obtaining and/or reviewing separately obtained history, performing a medically appropriate examination, counseling and educating the patient/family/caregiver, ordering medications, tests, or procedures, and independently interpreting results (not separately reported). documented in this encounter [facility] 11-07-2022 Miscellaneous Notes Pt notified of results. Josephine Salomon RN ----- Message from Grace Bess MD sent at 11/06/2022 11:30 AM EDT ----- Call with stable CT scan and no evidence of progressive disease documented in this encounter [facility] 11-03-2022 History of Present illness Narrative Summary: IRB# [id number] Informed Consent CASE [id number] (IRB [id number]): Tissue and Body Fluid Analysis from Patients with Cancer and Other Risk- Associated Lesions Patient seen in clinic for informed consent of the above mentioned protocol. Patient agrees to participate in the above mentioned research study. The patient has signed a copy of the informed consent. Patient has contact information for the study team and Dr. Grace eBss M.D. See consent note in Epic. Pooja Garcia, MSN, RN Clinical Research Nurse documented in this encounter [facility] 11-03-2022 History of Present illness Narrative Radiology Service Progress Note DATE OF SERVICE: November 03, 2022 TIME: 10:27 AM PATIENT WEIGHT: 183 LBS PATIENT IDENTITY VERIFICATION COMPLETED USING TWO (2) STANDARD IDENTIFIERS: Name and Date of confirmed by patient verbally. FALL SCREENING: Has the patient had 2 falls in the last year or 1 fall with injury or currently using an Ambulatory Assistive Device (Walker, Cane, Wheelchair, Crutches, etc.)? No PATIENT GENDER DATA: Male ALLERGIES: Reviewed and unchanged CONTRAST ALLERGY: No EXAM: CT -CONTRAST INDUCED NEPHROPATHY RISK FACTORS: Patient age > 60 years CREATININE: Creatinine Date Value Ref Range Status 09/29/2022 0.75 0.73 - 1.22 mg/dL Final 08/02/2022 0.81 0.73 - 1.22 mg/dL Final 06/29/2022 0.83 0.73 - 1.22 mg/dL Final Estimated Glomerular Filtration Rate Date Value Ref Range Status 09/29/2022 96 >=60 mL/min/1.73m Final Comment: Estimated Glomerular Filtration Rate (eGFR) is calculated using the 2020 CKD-EPI creatinine equation. This equation utilizes serum creatinine, sex, and age as parameters. The creatinine assay has traceable calibration to isotope dilution-mass spectrometry. Refer to KDIGO guidelines for clinical interpretation. In patients with unstable renal function, e.g. those with acute kidney injury, the eGFR may not accurately reflect actual GFR. eGFR- Date Value Ref Range Status 02/11/2021 >60 >60 Final P.O.C.T. RESULTS: POC done: Yes, See Lab Tab November 03, 2022 TREATMENT: No Hydration needed. IV SITE: Ambulatory: A power injectable Mediport was accessed in the Right chest with a 0.75 inch 20 gauge needle. Blood Return, Flushed easily with normal saline, Good Blood Return Post Injection, Needle Removed, No Complications, and Flushed with 20 mls NS only post injection; No hep per pt IV SITE APPEARANCE: Clean,Dry and Intact SIGNATURE: Key Travis RN PATIENT NAME: Trinity Perry DATE: November 03, 2022 TIME: 10:27 AM Radiology Service Progress Note PATIENT NAME: Trinity Perry DATE OF SERVICE: November 03, 2022 TIME: 10:36 AM PATIENT IDENTITY VERIFICATION COMPLETED USING TWO (2) IDENTIFIERS: Name and Date of confirmed by patient verbally. FALL SCREENING: Has the patient had 2 falls in the last year or 1 fall with injury or currently using an Ambulatory Assistive Device (Walker, Cane, Wheelchair, Crutches, etc.)? No PATIENT GENDER DATA: Male PATIENT RELEVANT IMPLANT DATA REVIEWED: Not Applicable RADIOLOGY DEPARTMENT: CT; Exam(s) Completed: Chest Abdomen Pelvis PERIPHERAL IV DATA: Site assessment: Clean,Dry and Intact, Site disposition Discontinued power port accessed by hemon SIGNED BY: RT Cornelio(R) November 03, 2022 10:36 AM documented in this encounter [facility] 09-29-2022 History of Present illness Narrative PATIENT NAME: Trinity Perry [facility] NO.: [id number] ATTENDING PHYSICIAN: Grace Bess MD DATE OF SERVICE: September 29, 2022 Some of the elements of this note have been copied from my previous progress note dated 08/02/2022. All the information has been reviewed carefully. Dear Dr. Hamlin here is an update on a follow up visit on quincy Perry at the clinic September 29, 2022 Diagnosis: 1. T3, N2, M0 pancreatic cancer. Tumor is 8.1 cm, moderately differentiated adenocarcinoma, tumor invades duodenal wall, peripancreatic soft tissue. Margins were negative. Lymphovascular space invasion was present, perineural invasion was present. Metastatic disease in 7 of 27 lymph nodes. 2. NGS Tissue Based: KRAS [id number], EGFR amplified and RAC 1 Amplified , [...] covered stent 4. CT 01/2022- recurrence 5. [place] and Abraxane 03/16/2022-05/11/2022 ( elected to stop chemo) HPI: Trinity Perry is a 72 year old year old [...] Range Status 08/02/2022 8.6 % Final Abs Buchanan Date Value Ref Range Status 08/02/2022 0.81 [...] and peritoneal masses/lymphadenopathy, stable Assessment and Plan: Trinity Perry is a 72 year old year old [...] do not hesitate to contact me at [phone]. Grace Bess MD Hematology/Medical Oncology [facility] CC: Giovanni Hamlin MD I spent a total of 30 minutes on the date of the service which included preparing to see the patient, [id number] patient care, completing clinical documentation, obtaining and/or reviewing separately obtained history, performing a medically appropriate examination, counseling and educating the patient/family/caregiver, ordering medications, tests, or procedures, and independently interpreting results (not separately reported). documented in this encounter [facility] 08-02-2022 History of Present illness Narrative PATIENT NAME: Trinity Perry CLINIC NO.: [id number] ATTENDING PHYSICIAN: Grace Bess MD DATE OF SERVICE: August 02, 2022 Some of the elements of this note have been copied from my previous progress note dated 06/29/2022. All the information has been reviewed carefully. Dear Dr. Hamlin here is an update on a follow up visit on male Trinity Perry at the clinic August 02, 2022 Diagnosis: 1. T3, and 2, M0 pancreatic cancer. Tumor is 8.1 cm, moderately differentiated adenocarcinoma, tumor invades duodenal wall, peripancreatic soft tissue. Margins were negative. Lymphovascular space invasion was present, perineural invasion was present. Metastatic disease in 7 of 27 lymph nodes. 2. NGS Tissue Based: KRAS [id number], EGFR amplified and RAC 1 Amplified , [...] covered stent 4. CT 01/2022- recurrence 5. [place] and Abraxane 03/16/2022-05/11/2022 ( elected to stop chemo) HPI: Trinity Perry is a 72 year old year old [...] Range Status 08/02/2022 8.6 % Final Abs Buchanan Date Value Ref Range Status 08/02/2022 0.81 [...] and peritoneal masses/lymphadenopathy, stable Assessment and Plan: Trinity Perry is a 72 year old year old [...] do not hesitate to contact me at [phone]. Grace Bess MD Hematology/Medical Oncology [facility] CC: Giovanni Hamlin MD I spent a total of 30 minutes on the date of the service which included preparing to see the patient, [id number]-[id number] patient care, completing clinical documentation, obtaining and/or reviewing separately obtained history, performing a medically appropriate examination, counseling and educating the patient/family/caregiver, ordering medications, tests, or procedures, and independently interpreting results (not separately reported). documented in this encounter [facility] 07-27-2022 History of Present illness Narrative Radiology Service Progress Note PATIENT NAME: Trinity Perry DATE OF SERVICE: July 27, 2022 TIME: 11:00 AM PATIENT IDENTITY VERIFICATION COMPLETED USING TWO (2) IDENTIFIERS: Name and Date of confirmed by patient verbally. FALL SCREENING: Has the patient had 2 falls in the last year or 1 fall with injury or currently using an Ambulatory Assistive Device (Walker, Cane, Wheelchair, Crutches, etc.)? No PATIENT GENDER DATA: Male PATIENT RELEVANT IMPLANT DATA REVIEWED: Not Applicable RADIOLOGY DEPARTMENT: CT; Exam(s) Completed: Chest Abdomen Pelvis With IV and Oral contrast PERIPHERAL IV DATA: Site assessment: Clean,Dry and Intact, Site disposition Discontinued SIGNED BY: RT Amanda(R) July 27, 2022 11:00 AM POWER port scanned 03/02/2022-NS Radiology Service Progress Note DATE OF SERVICE: July 27, 2022 TIME: 11:36 AM PATIENT WEIGHT: 197 LBS PATIENT IDENTITY VERIFICATION COMPLETED USING TWO (2) STANDARD IDENTIFIERS: Name and Date of confirmed by patient verbally. FALL SCREENING: Has the patient had 2 falls in the last year or 1 fall with injury or currently using an Ambulatory Assistive Device (Walker, Cane, Wheelchair, Crutches, etc.)? No PATIENT GENDER DATA: Male ALLERGIES: Reviewed and unchanged CONTRAST ALLERGY: No EXAM: CT -CONTRAST INDUCED NEPHROPATHY RISK FACTORS: Patient age > 60 years CREATININE: Creatinine Date Value Ref Range Status 06/29/2022 0.83 0.73 - 1.22 mg/dL Final 06/01/2022 0.76 0.73 - 1.22 mg/dL Final 05/25/2022 0.78 0.73 - 1.22 mg/dL Final Estimated Glomerular Filtration Rate Date Value Ref Range Status 06/29/2022 94 >=60 mL/min/1.73m Final Comment: Estimated Glomerular Filtration Rate (eGFR) is calculated using the 2020 CKD-EPI creatinine equation. This equation utilizes serum creatinine, sex, and age as parameters. The creatinine assay has traceable calibration to isotope dilution-mass spectrometry. Refer to KDIGO guidelines for clinical interpretation. In patients with unstable renal function, e.g. those with acute kidney injury, the eGFR may not accurately reflect actual GFR. eGFR- Date Value Ref Range Status 02/11/2021 >60 >60 Final P.O.C.T. RESULTS: POC done: Yes, See Lab Tab July 27, 2022 TREATMENT: N/A IV SITE: Ambulatory: A power injectable Mediport was accessed in the Right chest with a 0.75 inch 20 gauge needle. Blood Return, Flushed easily with normal saline, Good Blood Return Post Injection, Flushed with 20 cc saline followed by Heparin 500 units/5 cc, and No Complications IV SITE APPEARANCE: Clean,Dry and Intact SIGNATURE: Zayda Negron RN PATIENT NAME: Trinity Perry DATE: July 27, 2022 TIME: 11:36 AM documented in this encounter [facility] 06-29-2022 History of Present illness Narrative PATIENT NAME: Trinity Perry [facility] NO.: [id number] ATTENDING PHYSICIAN: Grace Bess MD DATE OF SERVICE: June 29, 2022 Some of the elements of this note have been copied from my previous progress note dated 06/01/2022. All the information has been reviewed carefully. Dear Dr. Hamlin here is an update on a follow up visit on male Trinity Perry at the clinic June 29, 2022 Diagnosis: 1. T3, and 2, M0 pancreatic cancer. Tumor is 8.1 cm, moderately differentiated adenocarcinoma, tumor invades duodenal wall, peripancreatic soft tissue. Margins were negative. Lymphovascular space invasion was present, perineural invasion was present. Metastatic disease in 7 of 27 lymph nodes. 2. NGS Tissue Based: KRAS [id number], EGFR amplified and RAC 1 Amplified , [...] covered stent 4. CT 01/2022- recurrence 5. [place] and Abraxane 03/16/2022 HPI: Trinity Perry is a 72 year old year old [...] 06/29/2022 2.15 1.00 - 4.00 k/uL Final Buchanan% Date Value Ref Range Status 06/29/2022 10.2 % Final Abs Buchanan Date Value Ref Range Status 06/29/2022 1.05 [...] on the current study. Assessment and Plan: Trinity Perry is a 72 year old year old [...] do not hesitate to contact me at [phone]. Grace Bess MD Hematology/Medical Oncology [facility] CC: Giovanni Hamlin MD I spent a total of 30 minutes on the date of the service which included preparing to see the patient, [id number] patient care, completing clinical documentation, obtaining and/or reviewing separately obtained history, performing a medically appropriate examination, counseling and educating the patient/family/caregiver, ordering medications, tests, or procedures, and independently interpreting results (not separately reported). documented in this encounter [facility] 05-25-2022 History of Present illness Narrative Radiology Service Progress Note DATE OF SERVICE: May 25, 2022 TIME: 10:38 AM PATIENT WEIGHT: 191 LBS PATIENT IDENTITY VERIFICATION COMPLETED USING TWO (2) STANDARD IDENTIFIERS: Name and Date of confirmed by patient verbally. FALL SCREENING: Has the patient had 2 falls in the last year or 1 fall with injury or currently using an Ambulatory Assistive Device (Walker, Cane, Wheelchair, Crutches, etc.)? No PATIENT GENDER DATA: Male ALLERGIES: Reviewed and unchanged CONTRAST ALLERGY: No EXAM: CT -CONTRAST INDUCED NEPHROPATHY RISK FACTORS: Patient age > 60 years and History of Kidney surgery, Kidney neoplasm, Liver disease, and/or any recent Nephrotoxic Chemotherapy or other Nephrotoxic medications CREATININE: Creatinine Date Value Ref Range Status 05/25/2022 0.78 0.73 - 1.22 mg/dL Final 05/11/2022 0.71 (L) 0.73 - 1.22 mg/dL Final 04/26/2022 0.80 0.73 - 1.22 mg/dL Final Estimated Glomerular Filtration Rate Date Value Ref Range Status 05/25/2022 95 >=60 mL/min/1.73m Final Comment: Estimated Glomerular Filtration Rate (eGFR) is calculated using the 2020 CKD-EPI creatinine equation. This equation utilizes serum creatinine, sex, and age as parameters. The creatinine assay has traceable calibration to isotope dilution-mass spectrometry. Refer to KDIGO guidelines for clinical interpretation. In patients with unstable renal function, e.g. those with acute kidney injury, the eGFR may not accurately reflect actual GFR. eGFR- Date Value Ref Range Status 02/11/2021 >60 >60 Final P.O.C.T. RESULTS: POC done: Yes, See Lab Tab May 25, 2022 TREATMENT: No Hydration needed. IV SITE: Ambulatory: A power injectable Mediport was accessed in the Right chest with a 0.75 inch 20 gauge needle. Blood Return, Flushed easily with normal saline, Good Blood Return Post Injection, Needle Removed, No Complications, and flushed with 30 ml normal saline post injection;NO heparin per pt IV SITE APPEARANCE: Clean,Dry and Intact SIGNATURE: Key Travis RN PATIENT NAME: Trinity Perry DATE: May 25, 2022 TIME: 10:38 AM Radiology Service Progress Note PATIENT NAME: Trinity Perry DATE OF SERVICE: May 25, 2022 TIME: 10:56 AM PATIENT IDENTITY VERIFICATION COMPLETED USING TWO (2) IDENTIFIERS: Name and Date of confirmed by patient verbally. FALL SCREENING: Has the patient had 2 falls in the last year or 1 fall with injury or currently using an Ambulatory Assistive Device (Walker, Cane, Wheelchair, Crutches, etc.)? No PATIENT GENDER DATA: Male PATIENT RELEVANT IMPLANT DATA REVIEWED: Not Applicable RADIOLOGY DEPARTMENT: CT; Exam(s) Completed: Chest Abdomen Pelvis With IV and Oral contrast PERIPHERAL IV DATA: Not applicable SIGNED BY: RT Amanda(R) May 25, 2022 10:56 AM POWER port scanned 03/02/2022-NS documented in this encounter [facility] 05-11-2022 Miscellaneous Notes Addended by: GRACE BESS on: 05/11/2022 09:59 AM Modules accepted: Orders documented in this encounter [facility] 05-11-2022 History of Present illness Narrative PATIENT NAME: Trinity Perry [facility] NO.: [id number] ATTENDING PHYSICIAN: Grace Bess MD DATE OF SERVICE: May 11, 2022 Some of the elements of this note have been copied from my previous progress note dated 04/20/2022. All the information has been reviewed carefully. Dear Dr. Hamlin here is an update on a follow up visit on male Trinity Perry at the clinic May 11, 2022 Diagnosis: 1. T3, and 2, M0 pancreatic cancer. Tumor is 8.1 cm, moderately differentiated adenocarcinoma, tumor invades duodenal wall, peripancreatic soft tissue. Margins were negative. Lymphovascular space invasion was present, perineural invasion was present. Metastatic disease in 7 of 27 lymph nodes. 2. NGS Tissue Based: KRAS [id number], EGFR amplified and RAC 1 Amplified , [...] covered stent 4. CT 01/2022- recurrence 5. [place] and Abraxane 03/16/2022 HPI: Trinity Perry is a 72 year old year old [...] 05/11/2022 1.49 1.00 - 4.00 k/uL Final Buchanan% Date Value Ref Range Status 05/11/2022 12.7 % Final Abs Buchanan Date Value Ref Range Status 05/11/2022 0.79 [...] nuclear medicine bone scan. Assessment and Plan: Trinity Perry is a 72 year old year old [...] high risk. Here for cycle 4 and Mon[place] and Abraxane and will skip next week and plan imaging and see back in 3 weeks Continue nutrition follow up Anemia- Monitor. Thank you for the kind referral. If there are any questions and or concerns please do not hesitate to contact me at [phone]. Grace Bess MD Hematology/Medical Oncology [facility] CC: Giovanni Hamlin MD I spent a total of 30 minutes on the date of the service which included preparing to see the patient, [id number]-[id number] patient care, completing clinical documentation, obtaining and/or reviewing separately obtained history, performing a medically appropriate examination, counseling and educating the patient/family/caregiver, ordering medications, tests, or procedures, and independently interpreting results (not separately reported). documented in this encounter [facility] 04-27-2022 History of Present illness Narrative PATIENT NAME: Trinity Perry CLINIC NO.: [id number] ATTENDING PHYSICIAN: Grace Bess MD DATE OF SERVICE: April 27, 2022 Some of the elements of this note have been copied from my previous progress note dated 04/20/2022. All the information has been reviewed carefully. Dear Dr. Hamlin here is an update on a follow up visit on male Trinity Perry at the clinic April 27, 2022. Diagnosis: 1. T3, and 2, M0 pancreatic cancer. Tumor is 8.1 cm, moderately differentiated adenocarcinoma, tumor invades duodenal wall, peripancreatic soft tissue. Margins were negative. Lymphovascular space invasion was present, perineural invasion was present. Metastatic disease in 7 of 27 lymph nodes. 2. NGS Tissue Based: KRAS [id number], EGFR amplified and RAC 1 Amplified , [...] Recurrence. 5. Gemcitabine and Abraxane 03/16/2022. HPI: Trinity Perry is a 72 year old year old [...] November: SYNOPTIC REPORT OF MANJARREZ PATHOLOGIC FINDINGS KARLEYLE, SOLANGEADER, OMENTUM: PANCREAS EXOCRINE WORKSHEET Specimen: Head [...] nuclear medicine bone scan. Assessment and Plan: Trinity Perry is a 72 year old year old [...] hesitate to contact Grace Bess MD at [phone]. Yordy Moncada APRN.[facility] Hematology/Medical Oncology [facility] CC: Giovanni Hamlin MD documented in this encounter [facility] 04-20-2022 Miscellaneous Notes Call received from [facility] needing clarification on gabapentin script. Script is written to be taken daily for a quantity of 30, but states for 14 days on the script. Discussed with Dr Bess and he would like this for a full 30 days. Orders given to pharmacist without difficulty. Josephine Salomon RN documented in this encounter [facility] 04-06-2022 History of Present illness Narrative PATIENT NAME: Trinity Perry [facility] NO.: [id number] ATTENDING PHYSICIAN: Grace Bess MD DATE OF [...] 03/30/2022 1.48 1.00 - 4.00 k/uL Final Buchanan% Date Value Ref Range Status 03/30/2022 8.7 % Final Abs Buchanan Date Value Ref Range Status 03/30/2022 0.56 [...] of prior granulomatous disease. Assessment and Plan: Trinity Perry is a 71 year old year old [...] very high risk. He was started on [place] and abraxane 03/09/2022 with good tolerance so [...] Giovanni Hamlin MD documented in this encounter [facility] 04-05-2022 Miscellaneous Notes Pt has reviewed his results on my chart Josephine Salomon RN ----- Message from Greta Wetzel PA-C sent at 03/31/2022 10:46 AM EST ----- Please call with [id number] documented in this encounter [facility] 03-30-2022 Miscellaneous Notes Call received from Cnady, pharmacist at [facility], regarding gabapentin script. Discussed with Greta who states pt will be taking it for 30 days now because it's working well. Pharmacist notified of this and she will remove the portion of the sig that says for 14 days. Josephine Salomon RN documented in this encounter [facility] 03-30-2022 History of Present illness Narrative PATIENT [facility]: [facility] NO.: [id number] ATTENDING PHYSICIAN: Grace Bess MD DATE OF [...] 03/30/2022 1.48 1.00 - 4.00 k/uL Final Buchanan% Date Value Ref Range Status 03/30/2022 8.7 % Final Abs Buchanan Date Value Ref Range Status 03/30/2022 0.56 [...] of prior granulomatous disease. Assessment and Plan: Trinity Perry is a 71 year old year old [...] very high risk. He was started on [place] and abraxane 03/09/2022 with good tolerance so far. Labs reviewed and stable. Proceed with cycle 2 day 1 today and return in 1 week for day 8. 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 Stable today, monitor Guardant 360 and tissue based NGS- still pending Medical Cancer genetics- germline testing negative Continue nutrition follow up Greta Wetzel PA-C CC: Giovanni Hamlin MD documented in this encounter [facility] 03-28-2022 Miscellaneous Notes Hitesh Brady Results left on patient voicemail. Trinity Perry's Multi-Cancer panel plus preliminary evidence pancreatic cancer and pancreatitis genes through [facility] was negative for a pathogenic variant. Please see [employer] message for further discussion. Jose Antonio Emerson MS, [facility] Licensed, Certified Genetic Counselor documented in this encounter [facility] 03-17-2022 Miscellaneous Notes Pt's notified of negative stool results. Josephine Salomon RN documented in this encounter [facility] 03-16-2022 History of Present illness Narrative [facility] Consultation Note Genetic Counselor: Jose Antonio Emerson MS, [facility] Patient: Trinity Perry Patient Name and confirmed at initiation of visit. Appointment occurred via audiovisual communication through [employer] Virtual Visit. HIGH LEVEL SUMMARY: The patient's personal history is potentially suggestive of a hereditary cancer syndrome. The patient provided informed consent for Multi-Cancer panel plus preliminary evidence pancreatic cancer and pancreatitis genes through [facility]. Results are expected in 2-3 weeks. IDENTIFICATION AND CHIEF COMPLAINT: Dr. Grace Bess requested a consultation for genetic counseling and risk assessment for Trinity Perry, a 71 year old male, for discussion of his personal history of pancreatic cancer. He presents to clinic today to discuss the possibility of a genetic predisposition to cancer, and to further clarify his risks, as well as his family members' risks for cancer. HISTORY OF PRESENT ILLNESS: In 2019, at the age of 69, Trinity Perry was diagnosed with adenocarcinoma of the pancreas. [...] appropriate standard National Comprehensive Cancer Network and [place] Cancer [employer] guidelines, with consideration of their [...] PALB2, PDGFRA, PHOX2B, PMS2, POLD1, POLE, POT1, WLHWJ5C, PTCH1, PTEN, RAD50, RAD51C, RAD51D, RB1, RECQL4, RET, RUNX1, SDHA, SDHAF2, SDHB, SDHC, SDHD, SMAD4, SMARCA4, SMARCB1, SMARCE1, STK11, SUFU, TERC, TERT, [id number], TP53, TSC1, TSC2, VHL, WRN, and WT1. [...] greater than 50% of which was spent [id number] counseling. This plan is being carried out under the oversight of Dr. Marina Aaron. This note will also be sent to the referring provider via the electronic medical record. Jose Antonio Emerson MS, [facility] Licensed, Certified Genetic Counselor [facility] CC: Dr. Grace Aaron documented in this encounter [facility] 03-16-2022 History of Present illness Narrative Pt c/o neuropathy becoming more aggravating. Bilateral hands up to forearms. This is not new since starting treatment. This was discussed with Akshat Prakash at treatment chairside and he will be given a trial of neurontin to take prior to bedtime. No change in doses required. documented in this encounter [facility] 03-16-2022 Miscellaneous Notes Addended by: GRETA WETZEL on: 03/16/2022 11:21 AM Modules accepted: Orders documented in this encounter [facility] 03-16-2022 History of Present illness Narrative [...] MS, RDN, LD documented in this encounter [facility] 03-16-2022 Nurse Note Patient states that he has numbness in both hands and arms, he thinks it may be arthritits. Stomach is also queezy . He does states he feels short of breath, also has had some bleeding with brushing teeth and blowing nose. Janet Dotson MA documented in this encounter [facility] 03-16-2022 History of Present illness Narrative PATIENT NAME: Trinity Perry [facility] NO.: [id number] ATTENDING PHYSICIAN: Grace Bess MD DATE OF [...] 02/2022 started Gemzar and Abraxane HPI: Mr. Perry returns for follow up after starting Gemzar/Abraxane [...] 03/16/2022 1.38 1.00 - 4.00 k/uL Final Buchanan% Date Value Ref Range Status 03/16/2022 7.7 % Final Abs Buchanan Date Value Ref Range Status 03/16/2022 0.28 [...] of prior granulomatous disease. Assessment and Plan: Trinity Perry is a 71 year old year old [...] very high risk. He was started on [place] and abraxane 03/09/2022 with good tolerance so [...] Giovanni Hamlin MD documented in this encounter [facility] 03-14-2022 Miscellaneous Notes CYCLE 1/DAY 1 [...] Josephine Salomon RN documented in this encounter [facility] 03-10-2022 Miscellaneous Notes Pt's called credit administration officer physician last night with questions regarding antiemetics. [...] Josephine Salomon RN documented in this encounter [facility] 03-09-2022 History of Present illness Narrative PSYCHOSOCIAL ASSESSMENT Date of Service: March 09, 2022 Trinity Perry is a 71 year old male being seen for initial social work assessment. Diagnosis:Pacreatic Cancer Recurrence Primary Oncologist: Dr. Grace Bess Radiation Oncologist: Unknown Goals of Care: Palliative care Today's visit includes: self/patient Family History of Cancer: not discussed SUPPORT NETWORK: Marital status: Parent(s): Mother is and Father is Child/Children: Yes. How many? 1- biological daughter: 1 step-daughter and 1 step son menagerie caretaker arrangements needed: Na Grandchild(sherman): 3 Home Health Provider: No Community Services: No Candy Identified: No Rastafari/Spirituality: Spiritual Are these practices or beliefs that may affect or influence treatment? Unknown EMPLOYMENT/FINANCIAL/HEALTH INSURANCE: Employment: Retired Income source: Social Security Insurance: Medicare with co-insurance Prescription coverage: Yes Is the patient appropriate for referral to [facility] COBRA Assistance program? No Financial Distress: [...] EPIC: No Health Care Durable Power of Curtain Inspector: Yes Scanned into EPIC: No Guardianship: NA [...] male with pancreatic cancer. Patient lives in [place], [place] with his Brittni Connor . Patient [...] PRN Follow up appointment with SW in: [place] Santos documented in this encounter [facility] 03-09-2022 Miscellaneous Notes Call received from pt's stating they are at [facility] in [place] waiting for pt's nausea medications. Call placed to our pharmacy and scripts will be transferred to [facility] in [place] shortly. Josephine Salomon RN documented in this encounter [facility] 03-09-2022 Miscellaneous Notes Patient assessed today. [...] cup from daughter (nurse in oncology in [place]) and will refrigerate specimen until his appointment on Monday. Spoke with Alla in lab and this is acceptable. RUBEN: please sign pending order. Thanks Josephine Salomon RN Yes. Thanks Pt does not have any diarrhea, just passing a lot of gas. Do you still want checked for cdiff? Josephien Salomon RN Can we test him for c. Diff as well Pt was in for education today for melissa alexander for pancreatic cancer. Pt states he's having [...] Josephine Salomon RN documented in this encounter [facility] 03-09-2022 Miscellaneous Notes 1st report of treatment-Benefit investigation complete. Patient is active with Medicare, LOC 80%, $233 deductible has $0 remaining. He carries Plan G [employer] supplement which will cover the 20% allowable balances. Estimate shows patient financial responsibility is $0 for each treatment in 2021. Called the patient to discuss, left a voicemail to return call. documented in this encounter [facility] 03-09-2022 History of Present illness Narrative Oncology Nutrition Therapy Initial Assessment RECOMMENDED MALNUTRITION DIAGNOSIS: NO MALNUTRITION IDENTIFIED Nutrition Diagnosis: Food and Nutrition related knowledge deficit related to lack of prior nutrition-related education as evidenced by verbalizes inaccurate or incomplete information OR no prior knowledge of need for xugk-sot-gjdsbrspe related recommendations Nutrition Intervention: -aim for small [...] 1.0-1.3 g/kg Dosing weight Estimated fluid needs: ~9927-5360 milliliters based on 1 mL per kcal [...] to follow Referred/Supervised by: Josephine Salomon RN/Dr. Bess MNOseas Billing Type: Initial Assess/15 min 2 units Time Spent with Patient: 30 minutes Signed by: Ibis Harvey MS, RDN, LD documented in this encounter [facility] 03-09-2022 History of Present illness Narrative PATIENT NAME: Trinity Perry [facility] NO.: [id number] ATTENDING PHYSICIAN: Grace Bess MD DATE OF SERVICE: March 09, 2022 Some of the elements of this note have been copied from my previous progress note dated 02/22/2022. All the information has been reviewed carefully. Dear Dr. Hamlin here is an update on a follow up visit on quincy Perry at the clinic March 09, 2022 Diagnosis: [...] covered stent 4. CT 01/2022- recurrence HPI: Trinity Perry is a 71 year old year old [...] 03/07/2022 1.76 1.00 - 4.00 k/uL Final Buchanan% Date Value Ref Range Status 03/07/2022 6.4 % Final Abs Buchanan Date Value Ref Range Status 03/07/2022 0.69 [...] nuclear medicine bone scan. Assessment and Plan: Trinity Perry is a 71 year old year old [...] very high risk. Patient here to start [place] and Abraxane. Discussed AE again and he wishes to proceed. Guardant 360 and tissue based NGS- pending Medical Cancer genetics- Appontment pending Continue nutrition follow up See back in 1 week for day 8 Thank you for the kind referral. If there are any questions and or concerns please do not hesitate to contact me at [phone]. Grace Bess MD Hematology/Medical Oncology [facility] CC: Giovanni Hamlin MD I spent a total of 30 minutes on the date of the service which included preparing to see the patient, [id number] patient care, completing clinical documentation, obtaining and/or reviewing separately obtained history, performing a medically appropriate examination, counseling and educating the patient/family/caregiver, ordering medications, tests, or procedures, and independently interpreting results (not separately reported). documented in this encounter [facility] 03-07-2022 History of Present illness Narrative [...] Josephine Salomon RN documented in this encounter [facility] 03-07-2022 History of Present illness Narrative Radiology Service Progress Note DATE OF SERVICE: March 07, 2022 TIME: 11:11 AM PATIENT WEIGHT: 191 LBS PATIENT IDENTITY VERIFICATION COMPLETED USING TWO (2) STANDARD IDENTIFIERS: Name and Date of confirmed by patient verbally. FALL SCREENING: Has the patient had 2 falls in the last year or 1 fall with injury or currently using an Ambulatory Assistive Device (Walker, Cane, Wheelchair, Crutches, etc.)? No PATIENT GENDER DATA: Male ALLERGIES: Reviewed and unchanged CONTRAST ALLERGY: No EXAM: CT -CONTRAST INDUCED NEPHROPATHY RISK FACTORS: Patient age > 60 years CREATININE: Creatinine Date Value Ref Range Status 02/15/2022 0.74 0.73 - 1.22 mg/dL Final 02/11/2021 0.49 (L) 0.70 - 1.40 mg/dL Final 02/10/2021 0.58 (L) 0.70 - 1.40 mg/dL Final Estimated Glomerular Filtration Rate Date Value Ref Range Status 02/15/2022 97 >=60 mL/min/1.73m Final Comment: Estimated Glomerular Filtration Rate (eGFR) is calculated using the 2020 CKD-EPI creatinine equation. This equation utilizes serum creatinine, sex, and age as parameters. The creatinine assay has traceable calibration to isotope dilution-mass spectrometry. Refer to KDIGO guidelines for clinical interpretation. In patients with unstable renal function, e.g. those with acute kidney injury, the eGFR may not accurately reflect actual GFR. eGFR- Date Value Ref Range Status 02/11/2021 >60 >60 Final P.O.C.T. RESULTS: POC done: Yes, See Lab Tab February 15, 2022 TREATMENT: No Hydration needed. IV SITE: Ambulatory: A power injectable Mediport was accessed in the Right chest with a 0.75 inch 20 gauge needle. Blood Return, Flushed easily with normal saline, Good Blood Return Post Injection, Needle Removed, No Complications, and 20 mls Normal saline flush post injection ONLY; No heparin. IV SITE APPEARANCE: Clean,Dry and Intact SIGNATURE: Key Travis RN PATIENT NAME: Trinity Perry DATE: March 07, 2022 TIME: 11:11 AM Radiology Service Progress Note PATIENT NAME: Trinity Perry DATE OF SERVICE: March 07, 2022 TIME: 11:28 AM PATIENT IDENTITY VERIFICATION COMPLETED USING TWO (2) IDENTIFIERS: Name and Date of confirmed by patient verbally. FALL SCREENING: Has the patient had 2 falls in the last year or 1 fall with injury or currently using an Ambulatory Assistive Device (Walker, Cane, Wheelchair, Crutches, etc.)? No PATIENT GENDER DATA: Male PATIENT RELEVANT IMPLANT DATA REVIEWED: Not Applicable RADIOLOGY DEPARTMENT: CT; Exam(s) Completed: Chest PERIPHERAL IV DATA: Not applicable SIGNED BY: RT Amanda(R) March 07, 2022 11:28 AM POWER port scanned 03/02/2022-NS documented in this encounter [facility] 03-04-2022 Miscellaneous Notes Pt will be in for education Monday. Please sign pending antiemetics for gem/abraxane. Thanks Josephine Salomon RN documented in this encounter [facility] 02-25-2022 Miscellaneous Notes You are scheduled for a Mediport Placement, On 03/02/2022. You are to arrive at 12:30 pm and Report to [facility] for Sedation Cases: [facility]: Enter through [facility] entrance. Proceed [...] if they are not done at a [facility] facility. . Exhibit Specialist/Transportation: How will you be arriving for your procedure? Private car. You will need a responsible adult to accompany you to and from the procedure. Your ems driver is required to stay with you until you are taken into the procedure room. If you have any questions please call [phone] documented in this encounter [facility] 02-22-2022 Miscellaneous Notes Patient's appointments have [...] Josephine Salomon RN documented in this encounter [facility] 02-22-2022 Miscellaneous Notes Pt saw Dr Bess this morning and has several questions at checkout regarding treatment. Questions answered and reassurance given. Josephine Salomon RN documented in this encounter [facility] 02-22-2022 History of Present illness Narrative PATIENT NAME: Trinity Perry [facility] NO.: [id number] ATTENDING PHYSICIAN: Grace Bess MD DATE OF SERVICE: February 22, 2022 Some of the elements of this note have been copied from my previous progress note dated 03/20/2020. All the information has been reviewed carefully. Dear Dr. Hamlin here is an update on a follow up visit on male Trinity Perry at the clinic February 22, 2022 Diagnosis: [...] covered stent 4. CT 01/2022- recurrence HPI: Trinity Perry is a 71 year old year old [...] 0.55 (L) 1.00 - 4.00 k/uL Final Buchanan% Date Value Ref Range Status 02/05/2021 4.9 % Final Abs Buchanan Date Value Ref Range Status 02/05/2021 1.27 (H) <0.87 k/uL Final Abs Eosin Date Value Ref Range Status 02/05/2021 <0.03 <0.46 k/uL Final Baso% Date Value Ref Range Status 02/05/2021 0.2 % Final Abs Baso Date Value Ref Range Status 02/05/2021 0.06 <0.11 k/uL Final PATH: [place] on November: SYNOPTIC REPORT OF [facility] PATHOLOGIC [...] nuclear medicine bone scan. Assessment and Plan: Trinity Perry is a 71 year old year old [...] need systemic therapy at this time. Discussed Mon[place] and Abraxane based on the IMPACT trial and also the toxicity, Refer to Port placement Guardant 360 and tissue based NGS Refer to Medical Cancer genetics Refer to Nutrition Chemo teach Start therapy in 2 weeks Thank you for the kind referral. If there are any questions and or concerns please do not hesitate to contact me at [phone]. Grace Bess MD Hematology/Medical Oncology [facility] CC: Giovanni Hamlin MD I spent a total of 55 minutes on the date of the service which included preparing to see the patient, [id number] patient care, completing clinical documentation, obtaining and/or reviewing separately obtained history, performing a medically appropriate examination, counseling and educating the patient/family/caregiver, ordering medications, tests, or procedures, and independently interpreting results (not separately reported). documented in this encounter [facility] 02-22-2022 Nurse Note Patient states that [...] Janet Dotson MA documented in this encounter [facility] 02-18-2022 History of Present illness Narrative AMBULATORY TELEPHONE VISIT Trinity Perry has consented to this telephone encounter. Persons [...] Fara Monaco MD documented in this encounter [facility] 02-15-2022 History of Present illness Narrative Radiology Service Progress Note DATE OF SERVICE: February 15, 2022 TIME: 10:55 AM PATIENT WEIGHT: 188 LBS PATIENT IDENTITY VERIFICATION COMPLETED USING TWO (2) STANDARD IDENTIFIERS: Name and Date of confirmed by patient verbally. FALL SCREENING: Has the patient had 2 falls in the last year or 1 fall with injury or currently using an Ambulatory Assistive Device (Walker, Cane, Wheelchair, Crutches, etc.)? No PATIENT GENDER DATA: Male ALLERGIES: Reviewed and unchanged CONTRAST ALLERGY: No EXAM: CT -CONTRAST INDUCED NEPHROPATHY RISK FACTORS: Patient age > 60 years and Diabetic: No CREATININE: Creatinine Date Value Ref Range Status 02/15/2022 0.74 0.73 - 1.22 mg/dL Final 02/11/2021 0.49 (L) 0.70 - 1.40 mg/dL Final 02/10/2021 0.58 (L) 0.70 - 1.40 mg/dL Final Estimated Glomerular Filtration Rate Date Value Ref Range Status 02/15/2022 97 >=60 mL/min/1.73m Final Comment: Estimated Glomerular Filtration Rate (eGFR) is calculated using the 2020 CKD-EPI creatinine equation. This equation utilizes serum creatinine, sex, and age as parameters. The creatinine assay has traceable calibration to isotope dilution-mass spectrometry. Refer to KDIGO guidelines for clinical interpretation. In patients with unstable renal function, e.g. those with acute kidney injury, the eGFR may not accurately reflect actual GFR. eGFR- Date Value Ref Range Status 02/11/2021 >60 >60 Final P.O.C.T. RESULTS: POC done: Yes, See Lab Tab February 15, 2022 TREATMENT: No Hydration needed. IV SITE: Ambulatory: A peripheral IV was started in the Right antecubital site with a Angio cath: 20 gauge. IV SITE APPEARANCE: Clean,Dry and Intact SIGNATURE: Key Travis RN PATIENT NAME: Trniity Perry DATE: February 15, 2022 TIME: 10:55 AM Radiology Service Progress Note PATIENT NAME: Trinity Perry DATE OF SERVICE: February 15, 2022 TIME: 11:34 AM PATIENT IDENTITY VERIFICATION COMPLETED USING TWO (2) IDENTIFIERS: Name and Date of confirmed by patient verbally. FALL SCREENING: Has the patient had 2 falls in the last year or 1 fall with injury or currently using an Ambulatory Assistive Device (Walker, Cane, Wheelchair, Crutches, etc.)? No PATIENT GENDER DATA: Male PATIENT RELEVANT IMPLANT DATA REVIEWED: Not Applicable RADIOLOGY DEPARTMENT: CT; Exam(s) Completed: Pancreas PERIPHERAL IV DATA: Site assessment: Clean,Dry and Intact, Site disposition Discontinued SIGNED BY: RT Amanda(R) February 15, 2022 11:34 AM documented in this encounter [facility] 02-10-[address] Pancreas scheduled [...] to come before the winter. Please call [phone]. documented in this encounter [facility] 10-22-2021 Nurse Note Patient requesting to [...] REFERRAL (RECOMMENDATION): None documented in this encounter [facility] 08-10-[address] 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 Is there any issue with pt having xray? Ph. 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 03-09-2020 History of Past i llness Narrative Problem Noted Date Resolved Date Sepsis 03/09/2020 03/13/2020 Obesity, Class II, BMI 35-39.9 12/06/2019 1 07/09/2019 documented as of this encounter (statuses as of 08/10/2021) [facility] History of Past illness Narrative* Problem Noted Date Resolved Date Sepsis 03/09/2020 03/13/2020 Obesity, Class II, BMI 35-39.9 12/06/2019 1 07/09/2019 documented as of this encounter (statuses as of 10/23/2021) [facility] History of Past illness Narrative* Problem Noted Date Resolved Date Sepsis 03/09/2020 03/13/2020 Obesity, Class II, BMI 35-39.9 12/06/2019 1 07/09/2019 documented as of this encounter (statuses as of 02/08/2022) [facility] History of Past illness Narrative* Problem Noted Date Resolved Date Sepsis 03/09/2020 03/13/2020 Obesity, Class II, BMI 35-39.9 12/06/2019 1 07/09/2019 documented as of this encounter (statuses as of 02/10/2022) [facility] History of Past illness Narrative* Problem Noted Date Resolved Date Sepsis 03/09/2020 03/13/2020 Obesity, Class II, BMI 35-39.9 12/06/2019 1 07/09/2019 documented as of this encounter (statuses as of 02/18/2022) [facility] History of Past illness Narrative* Problem Noted Date Resolved Date Sepsis 03/09/2020 03/13/2020 Obesity, Class II, BMI 35-39.9 12/06/2019 1 07/09/2019 documented as of this encounter (statuses as of 02/22/2022) [facility] History of Past illness Narrative* Problem Noted Date Resolved Date Sepsis 03/09/2020 03/13/2020 Obesity, Class II, BMI 35-39.9 12/06/2019 1 07/09/2019 documented as of this encounter (statuses as of 02/23/2022) [facility] History of Past illness Narrative* Problem Noted Date Resolved Date Sepsis 03/09/2020 03/13/2020 Obesity, Class II, BMI 35-39.9 12/06/2019 1 07/09/2019 documented as of this encounter (statuses as of 02/25/2022) [facility] History of Past illness Narrative* Problem Noted Date Resolved Date Sepsis 03/09/2020 03/13/2020 Obesity, Class II, BMI 35-39.9 12/06/2019 1 07/09/2019 documented as of this encounter (statuses as of 02/28/2022) [facility] History of Past illness Narrative* Problem Noted Date Resolved Date Sepsis 03/09/2020 03/13/2020 Obesity, Class II, BMI 35-39.9 12/06/2019 1 07/09/2019 documented as of this encounter (statuses as of 03/07/2022) [facility] History of Past illness Narrative* Problem Noted Date Resolved Date Sepsis 03/09/2020 03/13/2020 Obesity, Class II, BMI 35-39.9 12/06/2019 1 07/09/2019 documented as of this encounter (statuses as of 03/07/2022) [facility] History of Past illness Narrative* Problem Noted Date Resolved Date Sepsis 03/09/2020 03/13/2020 Obesity, Class II, BMI 35-39.9 12/06/2019 1 07/09/2019 documented as of this encounter (statuses as of 03/09/2022) [facility] History of Past illness Narrative* Problem Noted Date Resolved Date Sepsis 03/09/2020 03/13/2020 Obesity, Class II, BMI 35-39.9 12/06/2019 1 07/09/2019 documented as of this encounter (statuses as of 03/09/2022) [facility] History of Past illness Narrative* Problem Noted Date Resolved Date Sepsis 03/09/2020 03/13/2020 Obesity, Class II, BMI 35-39.9 12/06/2019 1 07/09/2019 documented as of this encounter (statuses as of 03/09/2022) [facility] History of Past illness Narrative* Problem Noted Date Resolved Date Sepsis 03/09/2020 03/13/2020 Obesity, Class II, BMI 35-39.9 12/06/2019 1 07/09/2019 documented as of this encounter (statuses as of 03/10/2022) [facility] History of Past illness Narrative* Problem Noted Date Resolved Date Sepsis 03/09/2020 03/13/2020 Obesity, Class II, BMI 35-39.9 12/06/2019 1 07/09/2019 documented as of this encounter (statuses as of 03/11/2022) [address]19-2020 History of Past illness Narrative* Problem Noted Date Resolved Date Sepsis 03/09/2020 03/13/2020 Obesity, Class II, BMI 35-39.9 12/06/2019 1 07/09/2019 documented as of this encounter (statuses as of 03/14/2022) [facility] History of Past illness Narrative* Problem Noted Date Resolved Date Sepsis 03/09/2020 03/13/2020 Obesity, Class II, BMI 35-39.9 12/06/2019 1 07/09/2019 documented as of this encounter (statuses as of 03/16/2022) [facility] History of Past illness Narrative* Problem Noted Date Resolved Date Sepsis 03/09/2020 03/13/2020 Obesity, Class II, BMI 35-39.9 12/06/2019 1 07/09/2019 documented as of this encounter (statuses as of 03/16/2022) [facility] History of Past illness Narrative* Problem Noted Date Resolved Date Sepsis 03/09/2020 03/13/2020 Obesity, Class II, BMI 35-39.9 12/06/2019 1 07/09/2019 documented as of this encounter (statuses as of 03/16/2022) [facility] History of Past illness Narrative* Problem Noted Date Resolved Date Sepsis 03/09/2020 03/13/2020 Obesity, Class II, BMI 35-39.9 12/06/2019 1 07/09/2019 documented as of this encounter (statuses as of 03/16/2022) [facility] History of Past illness Narrative* Problem Noted Date Resolved Date Sepsis 03/09/2020 03/13/2020 Obesity, Class II, BMI 35-39.9 12/06/2019 1 07/09/2019 documented as of this encounter (statuses as of 03/17/2022) [facility] History of Past illness Narrative* Problem Noted Date Resolved Date Sepsis 03/09/2020 03/13/2020 Obesity, Class II, BMI 35-39.9 12/06/2019 1 07/09/2019 documented as of this encounter (statuses as of 03/28/2022) [facility] History of Past illness Narrative* Problem Noted Date Resolved Date Sepsis 03/09/2020 03/13/2020 Obesity, Class II, BMI 35-39.9 12/06/2019 1 07/09/2019 documented as of this encounter (statuses as of 03/30/2022) [facility] History of Past illness Narrative* Problem Noted Date Resolved Date Sepsis 03/09/2020 03/13/2020 Obesity, Class II, BMI 35-39.9 12/06/2019 1 07/09/2019 documented as of this encounter (statuses as of 03/30/2022) [facility] History of Past illness Narrative* Problem Noted Date Resolved Date Sepsis 03/09/2020 03/13/2020 Obesity, Class II, BMI 35-39.9 12/06/2019 1 07/09/2019 documented as of this encounter (statuses as of 03/30/2022) [facility] History of Past illness Narrative* Problem Noted Date Resolved Date Sepsis 03/09/2020 03/13/2020 Obesity, Class II, BMI 35-39.9 12/06/2019 1 07/09/2019 documented as of this encounter (statuses as of 04/05/2022) [facility] History of Past illness Narrative* Problem Noted Date Resolved Date Sepsis 03/09/2020 03/13/2020 Obesity, Class II, BMI 35-39.9 12/06/2019 1 07/09/2019 documented as of this encounter (statuses as of 04/06/2022) [facility] History of Past illness Narrative* Problem Noted Date Resolved Date Sepsis 03/09/2020 03/13/2020 Obesity, Class II, BMI 35-39.9 12/06/2019 1 07/09/2019 documented as of this encounter (statuses as of 04/06/2022) [facility] History of Past illness Narrative* Problem Noted Date Resolved Date Sepsis 03/09/2020 03/13/2020 Obesity, Class II, BMI 35-39.9 12/06/2019 1 07/09/2019 documented as of this encounter (statuses as of 04/06/2022) [facility] History of Past illness Narrative* Problem Noted Date Resolved Date Sepsis 03/09/2020 03/13/2020 Obesity, Class II, BMI 35-39.9 12/06/2019 1 07/09/2019 documented as of this encounter (statuses as of 04/20/2022) [facility] History of Past illness Narrative* Problem Noted Date Resolved Date Sepsis 03/09/2020 03/13/2020 Obesity, Class II, BMI 35-39.9 12/06/2019 1 07/09/2019 documented as of this encounter (statuses as of 04/20/2022) [facility] History of Past illness Narrative* Problem Noted Date Resolved Date Sepsis 03/09/2020 03/13/2020 Obesity, Class II, BMI 35-39.9 12/06/2019 1 07/09/2019 documented as of this encounter (statuses as of 04/26/2022) [facility] History of Past illness Narrative* Problem Noted Date Resolved Date Sepsis 03/09/2020 03/13/2020 Obesity, Class II, BMI 35-39.9 12/06/2019 1 07/09/2019 documented as of this encounter (statuses as of 04/27/2022) [facility] History of Past illness Narrative* Problem Noted Date Resolved Date Sepsis 03/09/2020 03/13/2020 Obesity, Class II, BMI 35-39.9 12/06/2019 1 07/09/2019 documented as of this encounter (statuses as of 04/29/2022) [facility] History of Past illness Narrative* Problem Noted Date Resolved Date Sepsis 03/09/2020 03/13/2020 Obesity, Class II, BMI 35-39.9 12/06/2019 1 07/09/2019 documented as of this encounter (statuses as of 05/11/2022) [facility] History of Past illness Narrative* Problem Noted Date Resolved Date Sepsis 03/09/2020 03/13/2020 Obesity, Class II, BMI 35-39.9 12/06/2019 1 07/09/2019 documented as of this encounter (statuses as of 05/11/2022) [facility] History of Past illness Narrative* Problem Noted Date Resolved Date Sepsis 03/09/2020 03/13/2020 Obesity, Class II, BMI 35-39.9 12/06/2019 1 07/09/2019 documented as of this encounter (statuses as of 05/11/2022) [facility] History of Past illness Narrative* Problem Noted Date Resolved Date Sepsis 03/09/2020 03/13/2020 Obesity, Class II, BMI 35-39.9 12/06/2019 1 07/09/2019 documented as of this encounter (statuses as of 05/13/2022) [facility] History of Past illness Narrative* Problem Noted Date Resolved Date Sepsis 03/09/2020 03/13/2020 Obesity, Class II, BMI 35-39.9 12/06/2019 1 07/09/2019 documented as of this encounter (statuses as of 06/01/2022) [facility] History of Past illness Narrative* Problem Noted Date Resolved Date Sepsis 03/09/2020 03/13/2020 Obesity, Class II, BMI 35-39.9 12/06/2019 1 07/09/2019 documented as of this encounter (statuses as of 06/29/2022) [facility] History of Past illness Narrative* Problem Noted Date Resolved Date Sepsis 03/09/2020 03/13/2020 Obesity, Class II, BMI 35-39.9 12/06/2019 1 07/09/2019 documented as of this encounter (statuses as of 06/29/2022) [address]19-2020 History of Past illness Narrative* Problem Noted Date Resolved Date Sepsis 03/09/2020 03/13/2020 Obesity, Class II, BMI 35-39.9 12/06/2019 1 07/09/2019 documented as of this encounter (statuses as of 08/02/2022) [facility] History of Past illness Narrative* Problem Noted Date Resolved Date Sepsis 03/09/2020 03/13/2020 Obesity, Class II, BMI 35-39.9 12/06/2019 1 07/09/2019 documented as of this encounter (statuses as of 08/02/2022) [facility] History of Past illness Narrative* Problem Noted Date Resolved Date Sepsis 03/09/2020 03/13/2020 Obesity, Class II, BMI 35-39.9 12/06/2019 1 07/09/2019 documented as of this encounter (statuses as of 08/04/2022) [address]19-2020 History of Past illness Narrative* Problem Noted Date Resolved Date Sepsis 03/09/2020 03/13/2020 Obesity, Class II, BMI 35-39.9 12/06/2019 1 07/09/2019 documented as of this encounter (statuses as of 09/29/2022) [facility] History of Past illness Narrative* Problem Noted Date Resolved Date Sepsis 03/09/2020 03/13/2020 Obesity, Class II, BMI 35-39.9 12/06/2019 1 07/09/2019 documented as of this encounter (statuses as of 09/29/2022) [address]19-2020 History of Past illness Narrative* Problem Noted Date Resolved Date Sepsis 03/09/2020 03/13/2020 Obesity, Class II, BMI 35-39.9 12/06/2019 1 07/09/2019 documented as of this encounter (statuses as of 11/03/2022) [address]19-2020 History of Past illness Narrative* Problem Noted Date Resolved Date Sepsis 03/09/2020 03/13/2020 Obesity, Class II, BMI 35-39.9 12/06/2019 1 07/09/2019 documented as of this encounter (statuses as of 11/07/2022) [facility] History of Past illness Narrative* Problem Noted Date Resolved Date Sepsis 03/09/2020 03/13/2020 Obesity, Class II, BMI 35-39.9 12/06/2019 1 07/09/2019 documented as of this encounter (statuses as of 11/10/2022) [facility] History of Past illness Narrative* Problem Noted Date Resolved Date Sepsis 03/09/2020 03/13/2020 Obesity, Class II, BMI 35-39.9 12/06/2019 1 07/09/2019 documented as of this encounter (statuses as of 11/10/2022) [facility] History of Past illness Narrative* Problem Noted Date Resolved Date Sepsis 03/09/2020 03/13/2020 Obesity, Class II, BMI 35-39.9 12/06/2019 1 07/09/2019 documented as of this encounter (statuses as of 11/24/2022) [facility] History of Past illness Narrative* Problem Noted Date Resolved Date Sepsis 03/09/2020 03/13/2020 Obesity, Class II, BMI 35-39.9 12/06/2019 1 07/09/2019 documented as of this encounter (statuses as of 11/24/2022) [facility] History of Past illness Narrative* Problem Noted Date Resolved Date Sepsis 03/09/2020 03/13/2020 Obesity, Class II, BMI 35-39.9 12/06/2019 1 07/09/2019 documented as of this encounter (statuses as of 11/24/2022) [facility] History of Past illness Narrative* Problem Noted Date Diagnosed Date Resolved Date Sepsis 03/09/2020 03/13/2020 Obesity, Class II, BMI 35-39.9 12/06/2019 05/08/2020 documented as of this encounter (statuses as of 11/28/2022) [facility] History of Past illness Narrative* Problem Noted Date Diagnosed Date Resolved Date Sepsis 03/09/2020 03/13/2020 Obesity, Class II, BMI 35-39.9 12/06/2019 05/08/2020 documented as of this encounter (statuses as of 11/30/2022) [facility] History of Past illness Narrative* Problem Noted Date Diagnosed Date Resolved Date Sepsis 03/09/2020 03/13/2020 Obesity, Class II, BMI 35-39.9 12/06/2019 05/08/2020 documented as of this encounter (statuses as of 11/30/2022) [facility] History of Past illness Narrative* Problem Noted Date Diagnosed Date Resolved Date Sepsis 03/09/2020 03/13/2020 Obesity, Class II, BMI 35-39.9 12/06/2019 05/08/2020 documented as of this encounter (statuses as of 12/05/2022) [facility] History of Past illness Narrative* Problem Noted Date Diagnosed Date Resolved Date Sepsis 03/09/2020 03/13/2020 Obesity, Class II, BMI 35-39.9 12/06/2019 05/08/2020 documented as of this encounter (statuses as of 12/05/2022) [facility] History of Past illness Narrative* Problem Noted Date Diagnosed Date Resolved Date Sepsis 03/09/2020 03/13/2020 Obesity, Class II, BMI 35-39.9 12/06/2019 05/08/2020 documented as of this encounter (statuses as of 12/06/2022) [facility] History of Past illness Narrative* Problem Noted Date Diagnosed Date Resolved Date Sepsis 03/09/2020 03/13/2020 Obesity, Class II, BMI 35-39.9 12/06/2019 05/08/2020 documented as of this encounter (statuses as of 12/06/2022) [facility] History of Past illness Narrative* Problem Noted Date Diagnosed Date Resolved Date Sepsis 03/09/2020 03/13/2020 Obesity, Class II, BMI 35-39.9 12/06/2019 05/08/2020 documented as of this encounter (statuses as of 12/14/2022) [facility] History of Past illness Narrative* Problem Noted Date Diagnosed Date Resolved Date Sepsis 03/09/2020 03/13/2020 Obesity, Class II, BMI 35-39.9 12/06/2019 05/08/2020 documented as of this encounter (statuses as of 12/14/2022) [facility] History of Past illness Narrative* Problem Noted Date Diagnosed Date Resolved Date Sepsis 03/09/2020 03/13/2020 Obesity, Class II, BMI 35-39.9 12/06/2019 05/08/2020 documented as of this encounter (statuses as of 12/21/2022) [facility] History of Past illness Narrative* Problem Noted Date Diagnosed Date Resolved Date Sepsis 03/09/2020 03/13/2020 Obesity, Class II, BMI 35-39.9 12/06/2019 05/08/2020 documented as of this encounter (statuses as of 12/21/2022) [facility] History of Past illness Narrative* Problem Noted Date Diagnosed Date Resolved Date Sepsis 03/09/2020 03/13/2020 Obesity, Class II, BMI 35-39.9 12/06/2019 05/08/2020 documented as of this encounter (statuses as of 12/21/2022) [facility] History of Past illness Narrative* Problem Noted Date Diagnosed Date Resolved Date Sepsis 03/09/2020 03/13/2020 Obesity, Class II, BMI 35-39.9 12/06/2019 05/08/2020 documented as of this encounter (statuses as of 12/22/2022) [facility] History of Past illness Narrative* Problem Noted Date Diagnosed Date Resolved Date Sepsis 03/09/2020 03/13/2020 Obesity, Class II, BMI 35-39.9 12/06/2019 05/08/2020 documented as of this encounter (statuses as of 01/05/2023) [facility] History of Past illness Narrative* Problem Noted Date Diagnosed Date Resolved Date Sepsis 03/09/2020 03/13/2020 Obesity, Class II, BMI 35-39.9 12/06/2019 05/08/2020 documented as of this encounter (statuses as of 02/01/2023) [facility] History of Past illness Narrative* Problem Noted Date Diagnosed Date Resolved Date Sepsis 03/09/2020 03/13/2020 Obesity, Class II, BMI 35-39.9 12/06/2019 05/08/2020 documented as of this encounter (statuses as of 02/01/2023) [address]19-2020 History of Past illness Narrative* Problem Noted Date Diagnosed Date Resolved Date Sepsis 03/09/2020 03/13/2020 Obesity, Class II, BMI 35-39.9 12/06/2019 05/08/2020 documented as of this encounter (statuses as of 02/09/2023) [facility] History of Past illness Narrative* Problem Noted Date Diagnosed Date Resolved Date Sepsis 03/09/2020 03/13/2020 Obesity, Class II, BMI 35-39.9 12/06/2019 05/08/2020 documented as of this encounter (statuses as of 02/10/2023) [facility] History of Past illness Narrative* Problem Noted Date Diagnosed Date Resolved Date Sepsis 03/09/2020 03/13/2020 Obesity, Class II, BMI 35-39.9 12/06/2019 05/08/2020 documented as of this encounter (statuses as of 02/11/2023) [facility] History of Past illness Narrative* Problem Noted Date Diagnosed Date Resolved Date Sepsis 03/09/2020 03/13/2020 Obesity, Class II, BMI 35-39.9 12/06/2019 05/08/2020 documented as of this encounter (statuses as of 03/01/2023) [facility] History of Past illness Narrative* Problem Noted Date Diagnosed Date Resolved Date Sepsis 03/09/2020 03/13/2020 Obesity, Class II, BMI 35-39.9 12/06/2019 05/08/2020 documented as of this encounter (statuses as of 03/03/2023) [facility] History of Past illness Narrative* Problem Noted Date Diagnosed Date Resolved Date Sepsis 03/09/2020 03/13/2020 Obesity, Class II, BMI 35-39.9 12/06/2019 05/08/2020 documented as of this encounter (statuses as of 03/08/2023) [facility] History of Past illness Narrative* Problem Noted Date Diagnosed Date Resolved Date Sepsis 03/09/2020 03/13/2020 Obesity, Class II, BMI 35-39.9 12/06/2019 05/08/2020 documented as of this encounter (statuses as of 03/08/2023) [facility] History of Past illness Narrative* Problem Noted Date Diagnosed Date Resolved Date Sepsis 03/09/2020 03/13/2020 Obesity, Class II, BMI 35-39.9 12/06/2019 05/08/2020 documented as of this encounter (statuses as of 03/09/2023) [facility] History of Past illness Narrative* Problem Noted Date Diagnosed Date Resolved Date Sepsis 03/09/2020 03/13/2020 Obesity, Class II, BMI 35-39.9 12/06/2019 05/08/2020 documented as of this encounter (statuses as of 03/31/2023) [facility] History of Past illness Narrative* Problem Noted Date Diagnosed Date Resolved Date Sepsis 03/09/2020 03/13/2020 Obesity, Class II, BMI 35-39.9 12/06/2019 05/08/2020 documented as of this encounter (statuses as of 04/05/2023) [facility] History of Past illness Narrative* Problem Noted Date Diagnosed Date Resolved Date Sepsis 03/09/2020 03/13/2020 Obesity, Class II, BMI 35-39.9 12/06/2019 05/08/2020 documented as of this encounter (statuses as of 04/05/2023) [facility] History of Past illness Narrative* Problem Noted Date Diagnosed Date Resolved Date Sepsis 03/09/2020 03/13/2020 Obesity, Class II, BMI 35-39.9 12/06/2019 05/08/2020 documented as of this encounter (statuses as of 04/05/2023) [facility] History of Past illness Narrative* Problem Noted Date Diagnosed Date Resolved Date Sepsis 03/09/2020 03/13/2020 Obesity, Class II, BMI 35-39.9 12/06/2019 05/08/2020 documented as of this encounter (statuses as of 04/06/2023) [facility] History of Past illness Narrative* Problem Noted Date Diagnosed Date Resolved Date Sepsis 03/09/2020 03/13/2020 Obesity, Class II, BMI 35-39.9 12/06/2019 05/08/2020 documented as of this encounter (statuses as of 04/07/2023) [facility] History of Past illness Narrative* Problem Noted Date Diagnosed Date Resolved Date Sepsis 03/09/2020 03/13/2020 Obesity, Class II, BMI 35-39.9 12/06/2019 05/08/2020 documented as of this encounter (statuses as of 05/05/2023) [address]19-2020 History of Past illness Narrative* Problem Noted Date Diagnosed Date Resolved Date Sepsis 03/09/2020 03/13/2020 Obesity, Class II, BMI 35-39.9 12/06/2019 05/08/2020 documented as of this encounter (statuses as of 05/06/2023) [address]19-2020 History of Past illness Narrative* Problem Noted Date Diagnosed Date Resolved Date Sepsis 03/09/2020 03/13/2020 Obesity, Class II, BMI 35-39.9 12/06/2019 05/08/2020 documented as of this encounter (statuses as of 05/06/2023) [address]19-2020 History of Past illness Narrative* Problem Noted Date Diagnosed Date Resolved Date Sepsis 03/09/2020 03/13/2020 Obesity, Class II, BMI 35-39.9 12/06/2019 05/08/2020 documented as of this encounter (statuses as of 06/23/2023) [address]19-2020 History of Past illness Narrative* Problem Noted Date Diagnosed Date Resolved Date Sepsis 03/09/2020 03/13/2020 Obesity, Class II, BMI 35-39.9 12/06/2019 05/08/2020 documented as of this encounter (statuses as of 06/23/2023) [address]19-2020 History of Past illness Narrative* Problem Noted Date Diagnosed Date Resolved Date Sepsis 03/09/2020 03/13/2020 Obesity, Class II, BMI 35-39.9 12/06/2019 05/08/2020 documented as of this encounter (statuses as of 07/05/2023) [address]19-2020 History of Past illness Narrative* Problem Noted Date Diagnosed Date Resolved Date Sepsis 03/09/2020 03/13/2020 Obesity, Class II, BMI 35-39.9 12/06/2019 05/08/2020 documented as of this encounter (statuses as of 07/05/2023) [address]19-2020 History of Past illness Narrative* Problem Noted Date Diagnosed Date Resolved Date Sepsis 03/09/2020 03/13/2020 Obesity, Class II, BMI 35-39.9 12/06/2019 05/08/2020 documented as of this encounter (statuses as of 07/07/2023) [facility] History of Past illness Narrative* Problem Noted Date Diagnosed Date Resolved Date Sepsis 03/09/2020 03/13/2020 Obesity, Class II, BMI 35-39.9 12/06/2019 05/08/2020 documented as of this encounter (statuses as of 07/13/2023) [facility] History of Past illness Narrative* Problem Noted Date Diagnosed Date Resolved Date Sepsis 03/09/2020 03/13/2020 Obesity, Class II, BMI 35-39.9 12/06/2019 05/08/2020 documented as of this encounter (statuses as of 07/19/2023) [facility] History of Past illness Narrative* Problem Noted Date Diagnosed Date Resolved Date Sepsis 03/09/2020 03/13/2020 Obesity, Class II, BMI 35-39.9 12/06/2019 05/08/2020 documented as of this encounter (statuses as of 07/20/2023) [address]19-2020 History of Past illness Narrative* Problem Noted Date Diagnosed Date Resolved Date Sepsis 03/09/2020 03/13/2020 Obesity, Class II, BMI 35-39.9 12/06/2019 05/08/2020 documented as of this encounter (statuses as of 07/20/2023) [facility] History of Past illness Narrative* Problem Noted Date Diagnosed Date Resolved Date Sepsis 03/09/2020 03/13/2020 Obesity, Class II, BMI 35-39.9 12/06/2019 05/08/2020 documented as of this encounter (statuses as of 07/21/2023) [facility] History of Past illness Narrative* Problem Noted Date Diagnosed Date Resolved Date Sepsis 03/09/2020 03/13/2020 Obesity, Class II, BMI 35-39.9 12/06/2019 05/08/2020 documented as of this encounter (statuses as of 07/26/2023) [facility] History of Past illness Narrative* Problem Noted Date Diagnosed Date Resolved Date Sepsis 03/09/2020 03/13/2020 Obesity, Class II, BMI 35-39.9 12/06/2019 05/08/2020 documented as of this encounter (statuses as of 08/02/2023) [address]19-2020 History of Past illness Narrative* Problem Noted Date Diagnosed Date Resolved Date Sepsis 03/09/2020 03/13/2020 Obesity, Class II, BMI 35-39.9 12/06/2019 05/08/2020 documented as of this encounter (statuses as of 08/02/2023) [facility] History of Past illness Narrative* Problem Noted Date Diagnosed Date Resolved Date Sepsis 03/09/2020 03/13/2020 Obesity, Class II, BMI 35-39.9 12/06/2019 05/08/2020 documented as of this encounter (statuses as of 08/02/2023) [facility] History of Past illness Narrative* Problem Noted Date Diagnosed Date Resolved Date Sepsis 03/09/2020 03/13/2020 Obesity, Class II, BMI 35-39.9 12/06/2019 05/08/2020 documented as of this encounter (statuses as of 08/04/2023) [facility] History of Past illness Narrative* Problem Noted Date Diagnosed Date Resolved Date Sepsis 03/09/2020 03/13/2020 Obesity, Class II, BMI 35-39.9 12/06/2019 05/08/2020 documented as of this encounter (statuses as of 08/09/2023) [facility] History of Past illness Narrative* Problem Noted Date Diagnosed Date Resolved Date Sepsis 03/09/2020 03/13/2020 Obesity, Class II, BMI 35-39.9 12/06/2019 05/08/2020 documented as of this encounter (statuses as of 08/11/2023) [facility] History of Past illness Narrative* Problem Noted Date Diagnosed Date Resolved Date Sepsis 03/09/2020 03/13/2020 Obesity, Class II, BMI 35-39.9 12/06/2019 05/08/2020 documented as of this encounter (statuses as of 08/23/2023) [facility] History of Past illness Narrative* Problem Noted Date Diagnosed Date Resolved Date Sepsis 03/09/2020 03/13/2020 Obesity, Class II, BMI 35-39.9 12/06/2019 05/08/2020 documented as of this encounter (statuses as of 08/24/2023) [address]19-2020 History of Past illness Narrative* Problem Noted Date Diagnosed Date Resolved Date Sepsis 03/09/2020 03/13/2020 Obesity, Class II, BMI 35-39.9 12/06/2019 05/08/2020 documented as of this encounter (statuses as of 08/25/2023) [facility] Diagnosis Adenocarcinoma of head of pancreas [...] [facility] information available[facility]: [facility]* Diagnosis Malignant neoplasm [...] of unspecified site [facility] Diagnosis 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) Malignant neoplasm of head of pancreas Neuropathy Mononeuritis of unspecified site [facility] 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 Malignant neoplasm of head of pancreas Leg swelling Swelling of limb Neuropathy Mononeuritis of unspecified site Acute cough Diabetes mellitus due to underlying condition with diabetic polyneuropathy, without long-term current use of insulin (HCC) Acute cough [facility] Leg swelling Swelling of limb Malignant neoplasm of head of pancreas (HCC) Malignant neoplasm of head of pancreas Neuropathy Mononeuritis of unspecified site Acute cough [facility] 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 Malignant neoplasm of head of pancreas Frequency of urination Urinary frequency Leg swelling Swelling of limb Acute cough Anemia, unspecified type [facility] Frequency of urination- Primary Urinary [...] Primary Malignant neoplasm of head of pancreas Cellulitis of other specified site [facility] Diagnosis 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 Malignant neoplasm of head of pancreas [facility] Malignant neoplasm of pancreas, unspecified location of malignancy (HCC)- [facility] 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 Malignant neoplasm of head of pancreas 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 Malignant neoplasm of head of pancreas [facility] Diagnosis Central line complication, initial encounter- Primary [facility] Diagnosis 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 Malignant neoplasm of head of pancreas Central line complication, initial encounter [facility] Diagnosis 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 Malignant neoplasm of head of pancreas Central line complication, initial encounter [facility] Diagnosis 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 Malignant neoplasm of head of pancreas Central line complication, initial encounter [facility] Diagnosis Malignant neoplasm of head of pancreas (HCC) Malignant neoplasm of head of pancreas [facility] Diagnosis 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 Malignant neoplasm of head of pancreas Central line complication, initial encounter [facility] Pre-op evaluation- Primary Preoperative examination, unspecified Infection in abdomen (HCC) Unspecified peritonitis Obstructive sleep apnea Obstructive sleep apnea (adult) (pediatric) Former smoker Personal history of tobacco use, 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 to health weather clerk current use of anticoagulant Long-term (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 Insulin long-term use (HCC) Encounter for long-term (current) use of insulin Acute deep vein thrombosis (DVT) of both upper extremities, unspecified vein (HCC) Pre-op evaluation- Primary Preoperative examination, unspecified Unilateral inguinal hernia without obstruction or gangrene, recurrence not specified Malignant neoplasm of head of pancreas (HCC) Malignant neoplasm of head of pancreas Obstructive sleep apnea Obstructive sleep apnea (adult) (pediatric) Former smoker Personal history of tobacco use, 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 to health Insulin long-term use (HCC) Encounter for long-term (current) use of insulin Anemia, unspecified type Gastric outlet obstruction 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 Acute deep vein thrombosis (DVT) of both upper extremities, unspecified vein (HCC) 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 Malignant neoplasm of head of pancreas documented in this encounter [facility] note* Diagnosis Pre-op evaluation- Primary Preoperative examination, unspecified Infection in abdomen (HCC) Unspecified peritonitis Obstructive sleep apnea Obstructive sleep apnea (adult) (pediatric) Former smoker Personal history of tobacco use, 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 to health weather clerk current use of anticoagulant Long-term (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 Insulin long-term use (HCC) Encounter for long-term (current) use of insulin Acute deep vein thrombosis (DVT) of both upper extremities, unspecified vein (HCC) Pre-op evaluation- Primary Preoperative examination, unspecified Unilateral inguinal hernia without obstruction or gangrene, recurrence not specified Malignant neoplasm of head of pancreas (HCC) Malignant neoplasm of head of pancreas Obstructive sleep apnea Obstructive sleep apnea (adult) (pediatric) Former smoker Personal history of tobacco use, 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 to health Insulin long-term use (HCC) Encounter for long-term (current) use of insulin Anemia, unspecified type Gastric outlet obstruction 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 Acute deep vein thrombosis (DVT) of both upper extremities, unspecified vein (HCC) Malignant neoplasm of head of pancreas (HCC) Malignant neoplasm of head of pancreas documented in this encounter [facility] note* Diagnosis Pre-op evaluation- Primary Preoperative examination, unspecified Infection in abdomen (HCC) Unspecified peritonitis Obstructive sleep apnea Obstructive sleep apnea (adult) (pediatric) Former smoker Personal history of tobacco use, 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 to health half-way current use of anticoagulant Long-term (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 Insulin long-term use (HCC) Encounter for long-term (current) use of insulin Acute deep vein thrombosis (DVT) of both upper extremities, unspecified vein (HCC) Pre-op evaluation- Primary Preoperative examination, unspecified Unilateral inguinal hernia without obstruction or gangrene, recurrence not specified Malignant neoplasm of head of pancreas (HCC) Malignant neoplasm of head of pancreas Obstructive sleep apnea Obstructive sleep apnea (adult) (pediatric) Former smoker Personal history of tobacco use, 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 to health Insulin long-term use (HCC) Encounter for long-term (current) use of insulin Anemia, unspecified type Gastric outlet obstruction 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 Acute deep vein thrombosis (DVT) of both upper extremities, unspecified vein (HCC) 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 Malignant neoplasm of head of pancreas documented in this encounter [facility] note* Diagnosis Pre-op evaluation- Primary Preoperative examination, unspecified Infection in abdomen (HCC) Unspecified peritonitis Obstructive sleep apnea Obstructive sleep apnea (adult) (pediatric) Former smoker Personal history of tobacco use, 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 to health half-way current use of anticoagulant Long-term (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 Insulin long-term use (HCC) Encounter for long-term (current) use of insulin Acute deep vein thrombosis (DVT) of both upper extremities, unspecified vein (HCC) Pre-op evaluation- Primary Preoperative examination, unspecified Unilateral inguinal hernia without obstruction or gangrene, recurrence not specified Malignant neoplasm of head of pancreas (HCC) Malignant neoplasm of head of pancreas Obstructive sleep apnea Obstructive sleep apnea (adult) (pediatric) Former smoker Personal history of tobacco use, 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 to health Insulin long-term use (HCC) Encounter for long-term (current) use of insulin Anemia, unspecified type Gastric outlet obstruction 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 Acute deep vein thrombosis (DVT) of both upper extremities, unspecified vein (HCC) 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 Malignant neoplasm of head of pancreas documented in this encounter [facility] note* Diagnosis Pre-op evaluation- Primary Preoperative examination, unspecified Infection in abdomen (HCC) Unspecified peritonitis Obstructive sleep apnea Obstructive sleep apnea (adult) (pediatric) Former smoker Personal history of tobacco use, 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 to health weather clerk current use of anticoagulant Long-term (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 Insulin long-term use (HCC) Encounter for long-term (current) use of insulin Acute deep vein thrombosis (DVT) of both upper extremities, unspecified vein (HCC) Pre-op evaluation- Primary Preoperative examination, unspecified Unilateral inguinal hernia without obstruction or gangrene, recurrence not specified Malignant neoplasm of head of pancreas (HCC) Malignant neoplasm of head of pancreas Obstructive sleep apnea Obstructive sleep apnea (adult) (pediatric) Former smoker Personal history of tobacco use, 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 to health Insulin long-term use (HCC) Encounter for long-term (current) use of insulin Anemia, unspecified type Gastric outlet obstruction 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 Acute deep vein thrombosis (DVT) of both upper extremities, unspecified vein (HCC) 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 Malignant neoplasm of head of pancreas documented in this encounter [facility] note* Diagnosis Pre-op evaluation- Primary Preoperative examination, unspecified Infection in abdomen (HCC) Unspecified peritonitis Obstructive sleep apnea Obstructive sleep apnea (adult) (pediatric) Former smoker Personal history of tobacco use, 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 to health half-way current use of anticoagulant Long-term (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 Insulin long-term use (HCC) Encounter for long-term (current) use of insulin Acute deep vein thrombosis (DVT) of both upper extremities, unspecified vein (HCC) Pre-op evaluation- Primary Preoperative examination, unspecified Unilateral inguinal hernia without obstruction or gangrene, recurrence not specified Malignant neoplasm of head of pancreas (HCC) Malignant neoplasm of head of pancreas Obstructive sleep apnea Obstructive sleep apnea (adult) (pediatric) Former smoker Personal history of tobacco use, 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 to health Insulin long-term use (HCC) Encounter for long-term (current) use of insulin Anemia, unspecified type Gastric outlet obstruction 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 Acute deep vein thrombosis (DVT) of both upper extremities, unspecified vein (HCC) Malignant neoplasm of head of pancreas (HCC) Malignant neoplasm of head of pancreas documented in this encounter [facility] note* Diagnosis Pre-op evaluation- Primary Preoperative examination, unspecified Infection in abdomen (HCC) Unspecified peritonitis Obstructive sleep apnea Obstructive sleep apnea (adult) (pediatric) Former smoker Personal history of tobacco use, 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 to health half-way current use of anticoagulant Long-term (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 Insulin long-term use (HCC) Encounter for long-term (current) use of insulin Acute deep vein thrombosis (DVT) of both upper extremities, unspecified vein (HCC) Pre-op evaluation- Primary Preoperative examination, unspecified Unilateral inguinal hernia without obstruction or gangrene, recurrence not specified Malignant neoplasm of head of pancreas (HCC) Malignant neoplasm of head of pancreas Obstructive sleep apnea Obstructive sleep apnea (adult) (pediatric) Former smoker Personal history of tobacco use, 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 to health Insulin long-term use (HCC) Encounter for long-term (current) use of insulin Anemia, unspecified type Gastric outlet obstruction 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 Acute deep vein thrombosis (DVT) of both upper extremities, unspecified vein (HCC) Acute cough documented in this encounter [facility] note* Diagnosis Pre-op evaluation- Primary Preoperative examination, unspecified Infection in abdomen (HCC) Unspecified peritonitis Obstructive sleep apnea Obstructive sleep apnea (adult) (pediatric) Former smoker Personal history of tobacco use, 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 to health half-way current use of anticoagulant Long-term (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 Insulin long-term use (HCC) Encounter for long-term (current) use of insulin Acute deep vein thrombosis (DVT) of both upper extremities, unspecified vein (HCC) Pre-op evaluation- Primary Preoperative examination, unspecified Unilateral inguinal hernia without obstruction or gangrene, recurrence not specified 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) Malignant neoplasm of head of pancreas Obstructive sleep apnea Obstructive sleep apnea (adult) (pediatric) Former smoker Personal history of tobacco use, 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 to health Insulin long-term use (HCC) Encounter for long-term (current) use of insulin Anemia, unspecified type Gastric outlet obstruction 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 Acute deep vein thrombosis (DVT) of both upper extremities, unspecified vein (HCC) 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) Malignant neoplasm of head of pancreas documented in this encounter [facility] note* Diagnosis Pre-op evaluation- Primary Preoperative examination, unspecified Infection in abdomen (HCC) Unspecified peritonitis Obstructive sleep apnea Obstructive sleep apnea (adult) (pediatric) Former smoker Personal history of tobacco use, 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 to health weather clerk current use of anticoagulant Long-term (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 Insulin long-term use (HCC) Encounter for long-term (current) use of insulin Acute deep vein thrombosis (DVT) of both upper extremities, unspecified vein (HCC) Pre-op evaluation- Primary Preoperative examination, unspecified Unilateral inguinal hernia without obstruction or gangrene, recurrence not specified 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) Malignant neoplasm of head of pancreas Obstructive sleep apnea Obstructive sleep apnea (adult) (pediatric) Former smoker Personal history of tobacco use, 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 to health Insulin long-term use (HCC) Encounter for long-term (current) use of insulin Anemia, unspecified type Gastric outlet obstruction 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 Acute deep vein thrombosis (DVT) of both upper extremities, unspecified vein (HCC) Malignant neoplasm of head of pancreas (HCC) Malignant neoplasm of head of pancreas Malignant neoplasm of pancreas, unspecified location of malignancy (HCC) documented in this encounter [facility] note* Diagnosis Pre-op evaluation- Primary Preoperative examination, unspecified Infection in abdomen (HCC) Unspecified peritonitis Obstructive sleep apnea Obstructive sleep apnea (adult) (pediatric) Former smoker Personal history of tobacco use, 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 to health weather clerk current use of anticoagulant Long-term (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 Insulin long-term use (HCC) Encounter for long-term (current) use of insulin Acute deep vein thrombosis (DVT) of both upper extremities, unspecified vein (HCC) Pre-op evaluation- Primary Preoperative examination, unspecified Unilateral inguinal hernia without obstruction or gangrene, recurrence not specified 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) Malignant neoplasm of head of pancreas Obstructive sleep apnea Obstructive sleep apnea (adult) (pediatric) Former smoker Personal history of tobacco use, 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 to health Insulin long-term use (HCC) Encounter for long-term (current) use of insulin Anemia, unspecified type Gastric outlet obstruction 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 Acute deep vein thrombosis (DVT) of both upper extremities, unspecified vein (HCC) Malignant neoplasm of head of pancreas (HCC) Malignant neoplasm of head of pancreas documented in this encounter [facility] note* Diagnosis Pre-op evaluation- Primary Preoperative examination, unspecified Infection in abdomen (HCC) Unspecified peritonitis Obstructive sleep apnea Obstructive sleep apnea (adult) (pediatric) Former smoker Personal history of tobacco use, 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 to health weather clerk current use of anticoagulant Long-term (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 Insulin long-term use (HCC) Encounter for long-term (current) use of insulin Acute deep vein thrombosis (DVT) of both upper extremities, unspecified vein (HCC) Pre-op evaluation- Primary Preoperative examination, unspecified Unilateral inguinal hernia without obstruction or gangrene, recurrence not specified Malignant neoplasm of head of pancreas (HCC) Malignant neoplasm of head of pancreas Obstructive sleep apnea Obstructive sleep apnea (adult) (pediatric) Former smoker Personal history of tobacco use, 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 to health Insulin long-term use (HCC) Encounter for long-term (current) use of insulin Anemia, unspecified type Gastric outlet obstruction 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 Acute deep vein thrombosis (DVT) of both upper extremities, unspecified vein (HCC) Malignant neoplasm of head of pancreas (HCC) Malignant neoplasm of head of pancreas documented in this encounter [facility] note* Diagnosis Pre-op evaluation- Primary Preoperative examination, unspecified Infection in abdomen (HCC) Unspecified peritonitis Obstructive sleep apnea Obstructive sleep apnea (adult) (pediatric) Former smoker Personal history of tobacco use, 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 to health half-way current use of anticoagulant Long-term (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 Insulin long-term use (HCC) Encounter for long-term (current) use of insulin Acute deep vein thrombosis (DVT) of both upper extremities, unspecified vein (HCC) Pre-op evaluation- Primary Preoperative examination, unspecified Unilateral inguinal hernia without obstruction or gangrene, recurrence not specified Malignant neoplasm of head of pancreas (HCC) Malignant neoplasm of head of pancreas Obstructive sleep apnea Obstructive sleep apnea (adult) (pediatric) Former smoker Personal history of tobacco use, 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 to health Insulin long-term use ([facility]) Encounter for long-term (current) use of insulin Anemia, unspecified type Gastric outlet obstruction 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 Acute deep vein thrombosis (DVT) of both upper extremities, unspecified vein (HCC) 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 Malignant neoplasm of head of pancreas documented in this encounter [facility] note* Diagnosis Pre-op evaluation- Primary Preoperative examination, unspecified Infection in abdomen (HCC) Unspecified peritonitis Obstructive sleep apnea Obstructive sleep apnea (adult) (pediatric) Former smoker Personal history of tobacco use, 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 to health half-way current use of anticoagulant Long-term (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 Insulin long-term use (HCC) Encounter for long-term (current) use of insulin Acute deep vein thrombosis (DVT) of both upper extremities, unspecified vein (HCC) Pre-op evaluation- Primary Preoperative examination, unspecified Unilateral inguinal hernia without obstruction or gangrene, recurrence not specified Malignant neoplasm of head of pancreas (HCC) Malignant neoplasm of head of pancreas Obstructive sleep apnea Obstructive sleep apnea (adult) (pediatric) Former smoker Personal history of tobacco use, 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 to health Insulin long-term use (HCC) Encounter for long-term (current) use of insulin Anemia, unspecified type Gastric outlet obstruction 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 Acute deep vein thrombosis (DVT) of both upper extremities, unspecified vein (HCC) Malignant neoplasm of head of pancreas (HCC) Malignant neoplasm of head of pancreas documented in this encounter [facility] note* Diagnosis Pre-op evaluation- Primary Preoperative examination, unspecified Infection in abdomen (HCC) Unspecified peritonitis Obstructive sleep apnea Obstructive sleep apnea (adult) (pediatric) Former smoker Personal history of tobacco use, 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 to health half-way current use of anticoagulant Long-term (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 Insulin long-term use (HCC) Encounter for long-term (current) use of insulin Acute deep vein thrombosis (DVT) of both upper extremities, unspecified vein (HCC) Pre-op evaluation- Primary Preoperative examination, unspecified Unilateral inguinal hernia without obstruction or gangrene, recurrence not specified Malignant neoplasm of head of pancreas (HCC) Malignant neoplasm of head of pancreas Obstructive sleep apnea Obstructive sleep apnea (adult) (pediatric) Former smoker Personal history of tobacco use, 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 to health Insulin long-term use (HCC) Encounter for long-term (current) use of insulin Anemia, unspecified type Gastric outlet obstruction 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 Acute deep vein thrombosis (DVT) of both upper extremities, unspecified vein (HCC) Malignant neoplasm of head of pancreas (HCC) Malignant neoplasm of head of pancreas documented in this encounter [facility] note* Diagnosis Pre-op evaluation- Primary Preoperative examination, unspecified Infection in abdomen (HCC) Unspecified peritonitis Obstructive sleep apnea Obstructive sleep apnea (adult) (pediatric) Former smoker Personal history of tobacco use, 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 to health weather clerk current use of anticoagulant Long-term (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 Insulin long-term use (HCC) Encounter for long-term (current) use of insulin Acute deep vein thrombosis (DVT) of both upper extremities, unspecified vein (HCC) Pre-op evaluation- Primary Preoperative examination, unspecified Unilateral inguinal hernia without obstruction or gangrene, recurrence not specified Malignant neoplasm of head of pancreas (HCC) Malignant neoplasm of head of pancreas Obstructive sleep apnea Obstructive sleep apnea (adult) (pediatric) Former smoker Personal history of tobacco use, 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 to health Insulin long-term use (HCC) Encounter for long-term (current) use of insulin Anemia, unspecified type Gastric outlet obstruction 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 Acute deep vein thrombosis (DVT) of both upper extremities, unspecified vein (HCC) 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 Malignant neoplasm of head of pancreas [facility] Diagnosis Pre-op evaluation- Primary Preoperative examination, unspecified Infection in abdomen (HCC) Unspecified peritonitis Obstructive sleep apnea Obstructive sleep apnea (adult) (pediatric) Former smoker Personal history of tobacco use, 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 to health weather clerk current use of anticoagulant Long-term (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 Insulin long-term use (HCC) Encounter for long-term (current) use of insulin Acute deep vein thrombosis (DVT) of both upper extremities, unspecified vein (HCC) Pre-op evaluation- Primary Preoperative examination, unspecified Unilateral inguinal hernia without obstruction or gangrene, recurrence not specified Malignant neoplasm of head of pancreas (HCC) Malignant neoplasm of head of pancreas Obstructive sleep apnea Obstructive sleep apnea (adult) (pediatric) Former smoker Personal history of tobacco use, 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 to health Insulin long-term use ([facility]) Encounter for long-term (current) use of insulin Anemia, unspecified type Gastric outlet obstruction 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 Acute deep vein thrombosis (DVT) of both upper extremities, unspecified vein (HCC) Malignant neoplasm of head of pancreas (HCC) Malignant neoplasm of head of pancreas documented in this encounter [facility] note* Diagnosis Pre-op evaluation- Primary Preoperative examination, unspecified Infection in abdomen (HCC) Unspecified peritonitis Obstructive sleep apnea Obstructive sleep apnea (adult) (pediatric) Former smoker Personal history of tobacco use, 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 to health weather clerk current use of anticoagulant Long-term (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 Insulin long-term use (HCC) Encounter for long-term (current) use of insulin Acute deep vein thrombosis (DVT) of both upper extremities, unspecified vein (HCC) Pre-op evaluation- Primary Preoperative examination, unspecified Unilateral inguinal hernia without obstruction or gangrene, recurrence not specified Malignant neoplasm of head of pancreas (HCC) Malignant neoplasm of head of pancreas Obstructive sleep apnea Obstructive sleep apnea (adult) (pediatric) Former smoker Personal history of tobacco use, 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 to health Insulin long-term use (HCC) Encounter for long-term (current) use of insulin Anemia, unspecified type Gastric outlet obstruction 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 Acute deep vein thrombosis (DVT) of both upper extremities, unspecified vein (HCC) Other chronic pancreatitis (HCC) Adenocarcinoma of head of pancreas (HCC) [facility]-op evaluation- Primary Preoperative examination, unspecified Infection in abdomen (HCC) Unspecified peritonitis Obstructive sleep apnea Obstructive sleep apnea (adult) (pediatric) Former smoker Personal history of tobacco use, 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 to health weather clerk current use of anticoagulant Long-term (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 Insulin long-term use (HCC) Encounter for long-term (current) use of insulin Acute deep vein thrombosis (DVT) of both upper extremities, unspecified vein (HCC) Pre-op evaluation- Primary Preoperative examination, unspecified Unilateral inguinal hernia without obstruction or gangrene, recurrence not specified Malignant neoplasm of head of pancreas (HCC) Malignant neoplasm of head of pancreas Obstructive sleep apnea Obstructive sleep apnea (adult) (pediatric) Former smoker Personal history of tobacco use, 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 to health Insulin long-term use (HCC) Encounter for long-term (current) use of insulin Anemia, unspecified type Gastric outlet obstruction 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 for referral (narrative)* Outpatient Procedure (Urgent) - Pending Review Specialty Diagnoses / Procedures Referred By Riaz jordan Referred To [facility] Diagnoses Leg swelling Procedures US LEG VEIN DVT [facility] DUP-SCAN XTR VEINS COMPLETE BILATERAL STUDY Greta Wetzel PA-C [address] [place] [address] [place] [address] [facility] [address] [place] [address] Referral ID Status Reason Start Date Expiration Date Visits Requested Visits Authorized [id number] Pending Review Auto-Generat ed Referral 10/03/2023 10/02/[address] [facility] for referral (narrative)* Diagnostic Procedure Only (Routine) - Pending Review Specialty Diagnoses / Procedures Referred By Riaz jordan Referred To Contact XR IMAGING Diagnoses Malignant neoplasm of head of pancreas (HCC) Central line complication, initial encounter Procedures XR CHEST 1V FRONTAL PORT RADIOLOGIC EXAM CHEST SINGLE VIEW Greta Wetzel PA-C [address] [place] [address] [place] [address] [place] [address] Referral ID Status Reason Start Date Expiration Date Visits Requested Visits Authorized [id number] Pending Review Auto-Generat ed Referral 11/22/2023 12/21/2024 1 1 [facility] Summary Purpose Family History No Family History Records Found Relationship Condition Age at Onset Recorded Date/T abdoul Not Specified No pertinent family history Unknown Advance Directives No Advanced Directives Records FoundDocuments on File Type Date 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 Hazardous [...] Referral Specialty Diagnoses / Procedures Referred By Riaz jordan Referred To Contact CT IMAGING Diagnoses Malignant neoplasm of head of pancreas (HCC) Procedures CT CHEST W IVCON DIAGNOSTIC COMPUTED TOMOGRAPHY THORAX W/CONTRAST Grace Bess MD [address] [place] [address] Referral ID Status Reason Start Date Expiration Date Visits Requested Visits Authorized [id number] Authorized Auto-Generat ed Referral 2 03/24/2023 1 1 Specialty Diagnoses / Procedures Referred By Riaz jordan Referred To Contact Diagnoses Malignant neoplasm of head of pancreas (HCC) Procedures CONSULT TO MEDICAL GENETICS - CANCER MEDICAL GENETICS COUNSELING EACH 30 MINUTES Grace Bess MD [address] [place] [address] [place] [address] Referral ID Status Reason Start Date Expiration Date Visits Requested Visits Authorized [id number] Pending Review PCP Requested Referral Auto-Generate d Referral 2 02/22/2023 1 1 Specialty Diagnoses / Procedures Referred By Riaz jordan Referred To Contact CT IMAGING Diagnoses Malignant neoplasm of head of pancreas (HCC) Procedures CT ABD/PEL W IVCON CT ABD & PELVIS W/CONTRAST Garce Bess MD [address] [place] [address] Referral ID Status Reason Start Date Expiration Date Visits Requested Visits Authorized [id number] Authorized Auto-Generat ed Referral 06/01/2022 06/10/2023 1 1 Referral ID Status Reason Start Date Expiration Date Visits Requested Visits Authorized [id number] Authorized Auto-Generat ed Referral 06/01/2022 06/10/2023 1 1 Referral ID Status Reason Start Date Expiration Date Visits Requested Visits Authorized [id number] Pending Review Auto-Generat ed Referral 08/03/2022 07/29/2023 1 1 Referral ID Status Reason Start Date Expiration Date Visits Requested Visits Authorized [id number] Pending Review Auto-Generat ed Referral 08/03/2022 07/29/2023 1 1 Referral ID Status Reason Start Date Expiration Date Visits Requested Visits Authorized [id number] Authorized Auto-Generat ed Referral 11/10/2022 10/29/2023 1 1 Referral ID Status Reason Start Date Expiration Date Visits Requested Visits Authorized [id number] Authorized Auto-Generat ed Referral 11/10/2022 10/29/2023 1 1 Specialty Diagnoses / Procedures Referred By Riaz jordan Referred To Contact Endocrinology Diagnoses Malignant neoplasm of head of pancreas (HCC) Type 2 diabetes mellitus without complication, with long-term current use of insulin (HCC) Procedures CONSULT TO ENDOCRINOLOGY OFFICE/OUTPATIENT [facility] MDM 60-74 MINUTES Greta Wetzel PA-C [facility] [place] [address] Referral ID Status Reason Start Date Expiration Date Visits Requested Visits Authorized [id number] Authorized PCP Requested Referral 11/23/2022 11/23/2023 1 1 Specialty Diagnoses / Procedures Referred By Riaz jordan Referred To Contact CT IMAGING Diagnoses Chest pain, unspecified type LINDSEY (dyspnea on exertion) 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) Anemia, unspecified type Type 2 diabetes mellitus without complication, with long-term current use of insulin (HCC) Procedures CT CHEST W IVCON PE DIAGNOSTIC COMPUTED TOMOGRAPHY THORAX W/CONTRAST Greta Wetzel PA-C [facility] [place] [address] Ct Imaging Referral ID Status Reason Start Date Expiration Date Visits Requested Visits Authorized [id number] Pending Review Auto-Generat ed Referral 12/21/2022 01/20/2024 1 1 Specialty Diagnoses / Procedures Referred By Contac t Referred To Contact CT IMAGING Diagnoses Malignant neoplasm of head of pancreas (HCC) Procedures CT ABD/PEL W IVCON CT ABD & PELVIS W/CONTRAST Grace Bess MD [address] [place] [address] [address] [place] [address] Referral ID Status Reason Start Date Expiration Date Visits Requested Visits Authorized [id number] Authorized Auto-Generat ed Referral 05/26/2023 06/03/2024 1 1 Specialty Diagnoses / Procedures Referred By Contac t Referred To Contact CT IMAGING Diagnoses Malignant neoplasm of head of pancreas (HCC) Procedures CT CHEST W IVCON DIAGNOSTIC COMPUTED TOMOGRAPHY THORAX W/CONTRAST Grace Bess MD [address] [place] [address] [address] [place] [address] Referral ID Status Reason Start Date Expiration Date Visits Requested Visits Authorized [id number] Authorized Auto-Generat ed Referral 05/26/2023 06/03/2024 1 1 Referral ID Status Reason Start Date Expiration Date Visits Requested Visits Authorized [id number] Authorized Auto-Generat ed Referral 08/16/2023 08/31/2024 1 1 Referral ID Status Reason Start Date Expiration Date Visits Requested Visits Authorized [id number] Authorized Auto-Generat ed Referral 08/16/2023 08/31/2024 1 1 Referral ID Status Reason Start Date Expiration Date Visits Requested Visits Authorized [id number] Authorized Auto-Generat ed Referral 11/21/2023 11/29/2024 1 1 Referral ID Status Reason Start Date Expiration Date Visits Requested Visits Authorized [id number] Authorized Auto-Generat ed Referral 11/21/2023 11/29/2024 1 1 Referral ID Status Reason Start Date Expiration Date V isits Requested Visits Authorized [id number] Closed Auto-Generate d Referral 11/21/2023 11/29/2024 1 1 Referral ID Status Reason Start Date Expiration Date V isits Requested Visits Authorized [id number] Closed Auto-Generate d Referral 11/21/2023 11/29/2024 1 1 Referral ID Status Reason Start Date Expiration Date V isits Requested Visits Authorized [id number] Closed Auto-Generate d Referral 08/16/2023 08/31/2024 1 1 Referral ID Status Reason Start Date Expiration Date V isits Requested Visits Authorized [id number] Closed Auto-Generate d Referral 08/16/2023 08/31/2024 1 1 Referral ID Status Reason Start Date Expiration Date V isits Requested Visits Authorized [id number] Closed Auto-Generate d Referral 05/26/2023 06/03/2024 1 1 Referral ID Status Reason Start Date Expiration Date V isits Requested Visits Authorized [id number] Closed Auto-Generate d Referral 05/26/2023 06/03/2024 1 1 Referral ID Status Reason Start Date Expiration Date V isits Requested Visits Authorized [id number] Closed Auto-Generate d Referral 11/10/2022 10/29/2023 1 1 Referral ID Status Reason Start Date Expiration Date V isits Requested Visits Authorized [id number] Closed Auto-Generate d Referral 11/10/2022 10/29/2023 1 1 Referral ID Status Reason Start Date Expiration Date V isits Requested Visits Authorized [id number] Closed Auto-Generate d Referral 07/25/2022 07/29/2023 1 1 Referral ID Status Reason Start Date Expiration Date V isits Requested Visits Authorized [id number] Closed Auto-Generate d Referral 07/25/2022 07/29/2023 1 1 Referral ID Status Reason Start Date Expiration Date V isits Requested Visits Authorized [id number] Closed Auto-Generate d Referral 06/01/2022 06/10/2023 1 1 Referral ID Status Reason Start Date Expiration Date V isits Requested Visits Authorized [id number] Closed Auto-Generate d Referral 06/01/2022 06/10/2023 1 1 Referral ID Status Reason Start Date Expiration Date V isits Requested Visits Authorized [id number] Closed Auto-Generate d Referral 03/01/2022 03/24/2023 1 1 Specialty Diagnoses / Procedures Referred By Contac t Referred To Contact CT IMAGING Diagnoses Other chronic pancreatitis (HCC) Procedures CT PANCREAS W IVCON CT ABDOMEN W/[place] [address] [address] [address] [place] [address] Referral ID Status Reason Start Date Expiration Date V isits Requested Visits Authorized [id number] Closed Auto-Generate d Referral 07/21/2021 08/14/2022 1 1 Chief Complaint and Reason for Visit Chief Complaint fall Additional Source Comments (unrecognized sect ion and content) No Status Records FoundNo Status Records FoundNo Status Records FoundNo Status Records FoundNo Status Records FoundNo Status Records FoundNo Status Records FoundNo Status Records FoundNo Status Records FoundNo Status Records Found INFORMATION SOURCE (unrecogn ized section and content) DATE CREATED AUTHOR 12/12/2019 [facility] DATE CREATED AUTHOR AUTHOR'S ORGANIZ ATION 04/16/2020 [facility] DATE CREATED AUTHOR AUTHOR'S ORGANIZ ATION 02/19/2021 [facility] DATE CREATED AUTHOR AUTHOR'S ORGANIZ ATION 06/24/2021 [facility] DATE CREATED AUTHOR AUTHOR'S ORGANIZ ATION 09/27/2021 [facility] DATE CREATED AUTHOR AUTHOR'S ORGANIZ ATION 04/14/2022 [facility] DATE CREATED AUTHOR AUTHOR'S ORGANIZ ATION 10/28/2023 [facility] DATE CREATED AUTHOR AUTHOR'S ORGANIZ ATION 11/11/2023 [facility] DATE CREATED AUTHOR AUTHOR'S ORGANIZ ATION 01/03/2024 [facility] DATE CREATED AUTHOR AUTHOR'S ORGANIZ ATION 03/19/2024 [facility] Source Comments (unrecognize d section and content) In the event this informatio n is protected by the Federal Confidentiality of Alcohol and Drug Abuse Patient Records regulations: The Federal rules restrict any use of the information to criminally investigate or prosecute any alcohol or drug abuse patient.[facility] the event this information is protected by the Federal Confidentiality of Alcohol and Drug Abuse Patient Records regulations: The Federal rules restrict any use of the information to criminally investigate or prosecute any alcohol or drug abuse patient.[facility] HospitalIn the event this information is protected by the Federal Confidentiality of Alcohol and Drug Abuse Patient Records regulations: The Federal rules restrict any use of the information to criminally investigate or prosecute any alcohol or drug abuse patient.[facility] HospitalIn the event this information is protected by the Federal Confidentiality of Alcohol and Drug Abuse Patient Records regulations: The Federal rules restrict any use of the information to criminally investigate or prosecute any alcohol or drug abuse patient.[facility] HospitalIn the event this information is protected by the Federal Confidentiality of Alcohol and Drug Abuse Patient Records regulations: The Federal rules restrict any use of the information to criminally investigate or prosecute any alcohol or drug abuse patient.[facility] HospitalIn the event this information is protected by the Federal Confidentiality of Alcohol and Drug Abuse Patient Records regulations: The Federal rules restrict any use of the information to criminally investigate or prosecute any alcohol or drug abuse patient.[facility] HospitalIn the event this information is protected by the Federal Confidentiality of Alcohol and Drug Abuse Patient Records regulations: The Federal rules restrict any use of the information to criminally investigate or prosecute any alcohol or drug abuse patient.[facility] HospitalIn the event this information is protected by the Federal Confidentiality of Alcohol and Drug Abuse Patient Records regulations: The Federal rules restrict any use of the information to criminally investigate or prosecute any alcohol or drug abuse patient.[facility] HospitalIn the event this information is protected by the Federal Confidentiality of Alcohol and Drug Abuse Patient Records regulations: The Federal rules restrict any use of the information to criminally investigate or prosecute any alcohol or drug abuse patient.[facility] HospitalIn the event this information is protected by the Federal Confidentiality of Alcohol and Drug Abuse Patient Records regulations: The Federal rules restrict any use of the information to criminally investigate or prosecute any alcohol or drug abuse patient.[facility] HospitalIn the event this information is protected by the Federal Confidentiality of Alcohol and Drug Abuse Patient Records regulations: The Federal rules restrict any use of the information to criminally investigate or prosecute any alcohol or drug abuse patient.[facility] HospitalIn the event this information is protected by the Federal Confidentiality of Alcohol and Drug Abuse Patient Records regulations: The Federal rules restrict any use of the information to criminally investigate or prosecute any alcohol or drug abuse patient.[facility] HospitalIn the event this information is protected by the Federal Confidentiality of Alcohol and Drug Abuse Patient Records regulations: The Federal rules restrict any use of the information to criminally investigate or prosecute any alcohol or drug abuse patient.[facility] HospitalIn the event this information is protected by the Federal Confidentiality of Alcohol and Drug Abuse Patient Records regulations: The Federal rules restrict any use of the information to criminally investigate or prosecute any alcohol or drug abuse patient.[facility] HospitalIn the event this information is protected by the Federal Confidentiality of Alcohol and Drug Abuse Patient Records regulations: The Federal rules restrict any use of the information to criminally investigate or prosecute any alcohol or drug abuse patient.[facility] HospitalIn the event this information is protected by the Federal Confidentiality of Alcohol and Drug Abuse Patient Records regulations: The Federal rules restrict any use of the information to criminally investigate or prosecute any alcohol or drug abuse patient.[facility] HospitalIn the event this information is protected by the Federal Confidentiality of Alcohol and Drug Abuse Patient Records regulations: The Federal rules restrict any use of the information to criminally investigate or prosecute any alcohol or drug abuse patient.[facility] HospitalIn the event this information is protected by the Federal Confidentiality of Alcohol and Drug Abuse Patient Records regulations: The Federal rules restrict any use of the information to criminally investigate or prosecute any alcohol or drug abuse patient.[facility] HospitalIn the event this information is protected by the Federal Confidentiality of Alcohol and Drug Abuse Patient Records regulations: The Federal rules restrict any use of the information to criminally investigate or prosecute any alcohol or drug abuse patient.[facility] HospitalIn the event this information is protected by the Federal Confidentiality of Alcohol and Drug Abuse Patient Records regulations: The Federal rules restrict any use of the information to criminally investigate or prosecute any alcohol or drug abuse patient.[facility] HospitalIn the event this information is protected by the Federal Confidentiality of Alcohol and Drug Abuse Patient Records regulations: The Federal rules restrict any use of the information to criminally investigate or prosecute any alcohol or drug abuse patient.[facility] HospitalIn the event this information is protected by the Federal Confidentiality of Alcohol and Drug Abuse Patient Records regulations: The Federal rules restrict any use of the information to criminally investigate or prosecute any alcohol or drug abuse patient.[facility] HospitalIn the event this information is protected by the Federal Confidentiality of Alcohol and Drug Abuse Patient Records regulations: The Federal rules restrict any use of the information to criminally investigate or prosecute any alcohol or drug abuse patient.[facility] HospitalIn the event this information is protected by the Federal Confidentiality of Alcohol and Drug Abuse Patient Records regulations: The Federal rules restrict any use of the information to criminally investigate or prosecute any alcohol or drug abuse patient.[facility] HospitalIn the event this information is protected by the Federal Confidentiality of Alcohol and Drug Abuse Patient Records regulations: The Federal rules restrict any use of the information to criminally investigate or prosecute any alcohol or drug abuse patient.[facility] HospitalIn the event this information is protected by the Federal Confidentiality of Alcohol and Drug Abuse Patient Records regulations: The Federal rules restrict any use of the information to criminally investigate or prosecute any alcohol or drug abuse patient.[facility] HospitalIn the event this information is protected by the Federal Confidentiality of Alcohol and Drug Abuse Patient Records regulations: The Federal rules restrict any use of the information to criminally investigate or prosecute any alcohol or drug abuse patient.[facility] HospitalIn the event this information is protected by the Federal Confidentiality of Alcohol and Drug Abuse Patient Records regulations: The Federal rules restrict any use of the information to criminally investigate or prosecute any alcohol or drug abuse patient.[facility] HospitalIn the event this information is protected by the Federal Confidentiality of Alcohol and Drug Abuse Patient Records regulations: The Federal rules restrict any use of the information to criminally investigate or prosecute any alcohol or drug abuse patient.[facility] HospitalIn the event this information is protected by the Federal Confidentiality of Alcohol and Drug Abuse Patient Records regulations: The Federal rules restrict any use of the information to criminally investigate or prosecute any alcohol or drug abuse patient.[facility] HospitalIn the event this information is protected by the Federal Confidentiality of Alcohol and Drug Abuse Patient Records regulations: The Federal rules restrict any use of the information to criminally investigate or prosecute any alcohol or drug abuse patient.[facility] HospitalIn the event this information is protected by the Federal Confidentiality of Alcohol and Drug Abuse Patient Records regulations: The Federal rules restrict any use of the information to criminally investigate or prosecute any alcohol or drug abuse patient.[facility] HospitalIn the event this information is protected by the Federal Confidentiality of Alcohol and Drug Abuse Patient Records regulations: The Federal rules restrict any use of the information to criminally investigate or prosecute any alcohol or drug abuse patient.[facility] HospitalIn the event this information is protected by the Federal Confidentiality of Alcohol and Drug Abuse Patient Records regulations: The Federal rules restrict any use of the information to criminally investigate or prosecute any alcohol or drug abuse patient.[facility] HospitalIn the event this information is protected by the Federal Confidentiality of Alcohol and Drug Abuse Patient Records regulations: The Federal rules restrict any use of the information to criminally investigate or prosecute any alcohol or drug abuse patient.[facility] HospitalIn the event this information is protected by the Federal Confidentiality of Alcohol and Drug Abuse Patient Records regulations: The Federal rules restrict any use of the information to criminally investigate or prosecute any alcohol or drug abuse patient.[facility] HospitalIn the event this information is protected by the Federal Confidentiality of Alcohol and Drug Abuse Patient Records regulations: The Federal rules restrict any use of the information to criminally investigate or prosecute any alcohol or drug abuse patient.[facility] HospitalIn the event this information is protected by the Federal Confidentiality of Alcohol and Drug Abuse Patient Records regulations: The Federal rules restrict any use of the information to criminally investigate or prosecute any alcohol or drug abuse patient.[facility] HospitalIn the event this information is protected by the Federal Confidentiality of Alcohol and Drug Abuse Patient Records regulations: The Federal rules restrict any use of the information to criminally investigate or prosecute any alcohol or drug abuse patient.[facility] HospitalIn the event this information is protected by the Federal Confidentiality of Alcohol and Drug Abuse Patient Records regulations: The Federal rules restrict any use of the information to criminally investigate or prosecute any alcohol or drug abuse patient.[facility] HospitalIn the event this information is protected by the Federal Confidentiality of Alcohol and Drug Abuse Patient Records regulations: The Federal rules restrict any use of the information to criminally investigate or prosecute any alcohol or drug abuse patient.[facility] HospitalIn the event this information is protected by the Federal Confidentiality of Alcohol and Drug Abuse Patient Records regulations: The Federal rules restrict any use of the information to criminally investigate or prosecute any alcohol or drug abuse patient.[facility] HospitalIn the event this information is protected by the Federal Confidentiality of Alcohol and Drug Abuse Patient Records regulations: The Federal rules restrict any use of the information to criminally investigate or prosecute any alcohol or drug abuse patient.[facility] HospitalIn the event this information is protected by the Federal Confidentiality of Alcohol and Drug Abuse Patient Records regulations: The Federal rules restrict any use of the information to criminally investigate or prosecute any alcohol or drug abuse patient.[facility] HospitalIn the event this information is protected by the Federal Confidentiality of Alcohol and Drug Abuse Patient Records regulations: The Federal rules restrict any use of the information to criminally investigate or prosecute any alcohol or drug abuse patient.[facility] HospitalIn the event this information is protected by the Federal Confidentiality of Alcohol and Drug Abuse Patient Records regulations: The Federal rules restrict any use of the information to criminally investigate or prosecute any alcohol or drug abuse patient.[facility] HospitalIn the event this information is protected by the Federal Confidentiality of Alcohol and Drug Abuse Patient Records regulations: The Federal rules restrict any use of the information to criminally investigate or prosecute any alcohol or drug abuse patient.[facility] HospitalIn the event this information is protected by the Federal Confidentiality of Alcohol and Drug Abuse Patient Records regulations: The Federal rules restrict any use of the information to criminally investigate or prosecute any alcohol or drug abuse patient.[facility] HospitalIn the event this information is protected by the Federal Confidentiality of Alcohol and Drug Abuse Patient Records regulations: The Federal rules restrict any use of the information to criminally investigate or prosecute any alcohol or drug abuse patient.[facility] HospitalIn the event this information is protected by the Federal Confidentiality of Alcohol and Drug Abuse Patient Records regulations: The Federal rules restrict any use of the information to criminally investigate or prosecute any alcohol or drug abuse patient.[facility] HospitalIn the event this information is protected by the Federal Confidentiality of Alcohol and Drug Abuse Patient Records regulations: The Federal rules restrict any use of the information to criminally investigate or prosecute any alcohol or drug abuse patient.[facility] HospitalIn the event this information is protected by the Federal Confidentiality of Alcohol and Drug Abuse Patient Records regulations: The Federal rules restrict any use of the information to criminally investigate or prosecute any alcohol or drug abuse patient.[facility] HospitalIn the event this information is protected by the Federal Confidentiality of Alcohol and Drug Abuse Patient Records regulations: The Federal rules restrict any use of the information to criminally investigate or prosecute any alcohol or drug abuse patient.[facility] HospitalIn the event this information is protected by the Federal Confidentiality of Alcohol and Drug Abuse Patient Records regulations: The Federal rules restrict any use of the information to criminally investigate or prosecute any alcohol or drug abuse patient.[facility] HospitalIn the event this information is protected by the Federal Confidentiality of Alcohol and Drug Abuse Patient Records regulations: The Federal rules restrict any use of the information to criminally investigate or prosecute any alcohol or drug abuse patient.[facility] HospitalIn the event this information is protected by the Federal Confidentiality of Alcohol and Drug Abuse Patient Records regulations: The Federal rules restrict any use of the information to criminally investigate or prosecute any alcohol or drug abuse patient.[facility] HospitalIn the event this information is protected by the Federal Confidentiality of Alcohol and Drug Abuse Patient Records regulations: The Federal rules restrict any use of the information to criminally investigate or prosecute any alcohol or drug abuse patient.[facility] HospitalIn the event this information is protected by the Federal Confidentiality of Alcohol and Drug Abuse Patient Records regulations: The Federal rules restrict any use of the information to criminally investigate or prosecute any alcohol or drug abuse patient.[facility] HospitalIn the event this information is protected by the Federal Confidentiality of Alcohol and Drug Abuse Patient Records regulations: The Federal rules restrict any use of the information to criminally investigate or prosecute any alcohol or drug abuse patient.[facility] HospitalIn the event this information is protected by the Federal Confidentiality of Alcohol and Drug Abuse Patient Records regulations: The Federal rules restrict any use of the information to criminally investigate or prosecute any alcohol or drug abuse patient.[facility] HospitalIn the event this information is protected by the Federal Confidentiality of Alcohol and Drug Abuse Patient Records regulations: The Federal rules restrict any use of the information to criminally investigate or prosecute any alcohol or drug abuse patient.[facility] HospitalIn the event this information is protected by the Federal Confidentiality of Alcohol and Drug Abuse Patient Records regulations: The Federal rules restrict any use of the information to criminally investigate or prosecute any alcohol or drug abuse patient.[facility] HospitalIn the event this information is protected by the Federal Confidentiality of Alcohol and Drug Abuse Patient Records regulations: The Federal rules restrict any use of the information to criminally investigate or prosecute any alcohol or drug abuse patient.[facility] HospitalIn the event this information is protected by the Federal Confidentiality of Alcohol and Drug Abuse Patient Records regulations: The Federal rules restrict any use of the information to criminally investigate or prosecute any alcohol or drug abuse patient.[facility] HospitalIn the event this information is protected by the Federal Confidentiality of Alcohol and Drug Abuse Patient Records regulations: The Federal rules restrict any use of the information to criminally investigate or prosecute any alcohol or drug abuse patient.[facility] HospitalIn the event this information is protected by the Federal Confidentiality of Alcohol and Drug Abuse Patient Records regulations: The Federal rules restrict any use of the information to criminally investigate or prosecute any alcohol or drug abuse patient.[facility] HospitalIn the event this information is protected by the Federal Confidentiality of Alcohol and Drug Abuse Patient Records regulations: The Federal rules restrict any use of the information to criminally investigate or prosecute any alcohol or drug abuse patient.[facility] HospitalIn the event this information is protected by the Federal Confidentiality of Alcohol and Drug Abuse Patient Records regulations: The Federal rules restrict any use of the information to criminally investigate or prosecute any alcohol or drug abuse patient.[facility] HospitalIn the event this information is protected by the Federal Confidentiality of Alcohol and Drug Abuse Patient Records regulations: The Federal rules restrict any use of the information to criminally investigate or prosecute any alcohol or drug abuse patient.[facility] HospitalIn the event this information is protected by the Federal Confidentiality of Alcohol and Drug Abuse Patient Records regulations: The Federal rules restrict any use of the information to criminally investigate or prosecute any alcohol or drug abuse patient.[facility] HospitalIn the event this information is protected by the Federal Confidentiality of Alcohol and Drug Abuse Patient Records regulations: The Federal rules restrict any use of the information to criminally investigate or prosecute any alcohol or drug abuse patient.[facility] HospitalIn the event this information is protected by the Federal Confidentiality of Alcohol and Drug Abuse Patient Records regulations: The Federal rules restrict any use of the information to criminally investigate or prosecute any alcohol or drug abuse patient.[facility] HospitalIn the event this information is protected by the Federal Confidentiality of Alcohol and Drug Abuse Patient Records regulations: The Federal rules restrict any use of the information to criminally investigate or prosecute any alcohol or drug abuse patient.[facility] HospitalIn the event this information is protected by the Federal Confidentiality of Alcohol and Drug Abuse Patient Records regulations: The Federal rules restrict any use of the information to criminally investigate or prosecute any alcohol or drug abuse patient.[facility] HospitalIn the event this information is protected by the Federal Confidentiality of Alcohol and Drug Abuse Patient Records regulations: The Federal rules restrict any use of the information to criminally investigate or prosecute any alcohol or drug abuse patient.[facility] HospitalIn the event this information is protected by the Federal Confidentiality of Alcohol and Drug Abuse Patient Records regulations: The Federal rules restrict any use of the information to criminally investigate or prosecute any alcohol or drug abuse patient.[facility] HospitalIn the event this information is protected by the Federal Confidentiality of Alcohol and Drug Abuse Patient Records regulations: The Federal rules restrict any use of the information to criminally investigate or prosecute any alcohol or drug abuse patient.[facility] HospitalIn the event this information is protected by the Federal Confidentiality of Alcohol and Drug Abuse Patient Records regulations: The Federal rules restrict any use of the information to criminally investigate or prosecute any alcohol or drug abuse patient.[facility] HospitalIn the event this information is protected by the Federal Confidentiality of Alcohol and Drug Abuse Patient Records regulations: The Federal rules restrict any use of the information to criminally investigate or prosecute any alcohol or drug abuse patient.[facility] HospitalIn the event this information is protected by the Federal Confidentiality of Alcohol and Drug Abuse Patient Records regulations: The Federal rules restrict any use of the information to criminally investigate or prosecute any alcohol or drug abuse patient.[facility] HospitalIn the event this information is protected by the Federal Confidentiality of Alcohol and Drug Abuse Patient Records regulations: The Federal rules restrict any use of the information to criminally investigate or prosecute any alcohol or drug abuse patient.[facility] HospitalIn the event this information is protected by the Federal Confidentiality of Alcohol and Drug Abuse Patient Records regulations: The Federal rules restrict any use of the information to criminally investigate or prosecute any alcohol or drug abuse patient.[facility] HospitalIn the event this information is protected by the Federal Confidentiality of Alcohol and Drug Abuse Patient Records regulations: The Federal rules restrict any use of the information to criminally investigate or prosecute any alcohol or drug abuse patient.[facility] HospitalIn the event this information is protected by the Federal Confidentiality of Alcohol and Drug Abuse Patient Records regulations: The Federal rules restrict any use of the information to criminally investigate or prosecute any alcohol or drug abuse patient.[facility] HospitalIn the event this information is protected by the Federal Confidentiality of Alcohol and Drug Abuse Patient Records regulations: The Federal rules restrict any use of the information to criminally investigate or prosecute any alcohol or drug abuse patient.[facility] HospitalIn the event this information is protected by the Federal Confidentiality of Alcohol and Drug Abuse Patient Records regulations: The Federal rules restrict any use of the information to criminally investigate or prosecute any alcohol or drug abuse patient.[facility] HospitalIn the event this information is protected by the Federal Confidentiality of Alcohol and Drug Abuse Patient Records regulations: The Federal rules restrict any use of the information to criminally investigate or prosecute any alcohol or drug abuse patient.[facility] HospitalIn the event this information is protected by the Federal Confidentiality of Alcohol and Drug Abuse Patient Records regulations: The Federal rules restrict any use of the information to criminally investigate or prosecute any alcohol or drug abuse patient.[facility] HospitalIn the event this information is protected by the Federal Confidentiality of Alcohol and Drug Abuse Patient Records regulations: The Federal rules restrict any use of the information to criminally investigate or prosecute any alcohol or drug abuse patient.[facility] HospitalIn the event this information is protected by the Federal Confidentiality of Alcohol and Drug Abuse Patient Records regulations: The Federal rules restrict any use of the information to criminally investigate or prosecute any alcohol or drug abuse patient.[facility] HospitalIn the event this information is protected by the Federal Confidentiality of Alcohol and Drug Abuse Patient Records regulations: The Federal rules restrict any use of the information to criminally investigate or prosecute any alcohol or drug abuse patient.[facility] HospitalIn the event this information is protected by the Federal Confidentiality of Alcohol and Drug Abuse Patient Records regulations: The Federal rules restrict any use of the information to criminally investigate or prosecute any alcohol or drug abuse patient.[facility] HospitalIn the event this information is protected by the Federal Confidentiality of Alcohol and Drug Abuse Patient Records regulations: The Federal rules restrict any use of the information to criminally investigate or prosecute any alcohol or drug abuse patient.[facility] HospitalIn the event this information is protected by the Federal Confidentiality of Alcohol and Drug Abuse Patient Records regulations: The Federal rules restrict any use of the information to criminally investigate or prosecute any alcohol or drug abuse patient.[facility] HospitalIn the event this information is protected by the Federal Confidentiality of Alcohol and Drug Abuse Patient Records regulations: The Federal rules restrict any use of the information to criminally investigate or prosecute any alcohol or drug abuse patient.[facility] HospitalIn the event this information is protected by the Federal Confidentiality of Alcohol and Drug Abuse Patient Records regulations: The Federal rules restrict any use of the information to criminally investigate or prosecute any alcohol or drug abuse patient.[facility] HospitalIn the event this information is protected by the Federal Confidentiality of Alcohol and Drug Abuse Patient Records regulations: The Federal rules restrict any use of the information to criminally investigate or prosecute any alcohol or drug abuse patient.[facility] HospitalIn the event this information is protected by the Federal Confidentiality of Alcohol and Drug Abuse Patient Records regulations: The Federal rules restrict any use of the information to criminally investigate or prosecute any alcohol or drug abuse patient.[facility] HospitalIn the event this information is protected by the Federal Confidentiality of Alcohol and Drug Abuse Patient Records regulations: The Federal rules restrict any use of the information to criminally investigate or prosecute any alcohol or drug abuse patient.[facility] HospitalIn the event this information is protected by the Federal Confidentiality of Alcohol and Drug Abuse Patient Records regulations: The Federal rules restrict any use of the information to criminally investigate or prosecute any alcohol or drug abuse patient.[facility] HospitalIn the event this information is protected by the Federal Confidentiality of Alcohol and Drug Abuse Patient Records regulations: The Federal rules restrict any use of the information to criminally investigate or prosecute any alcohol or drug abuse patient.[facility] HospitalIn the event this information is protected by the Federal Confidentiality of Alcohol and Drug Abuse Patient Records regulations: The Federal rules restrict any use of the information to criminally investigate or prosecute any alcohol or drug abuse patient.[facility] HospitalIn the event this information is protected by the Federal Confidentiality of Alcohol and Drug Abuse Patient Records regulations: The Federal rules restrict any use of the information to criminally investigate or prosecute any alcohol or drug abuse patient.[facility] HospitalIn the event this information is protected by the Federal Confidentiality of Alcohol and Drug Abuse Patient Records regulations: The Federal rules restrict any use of the information to criminally investigate or prosecute any alcohol or drug abuse patient.[facility] HospitalIn the event this information is protected by the Federal Confidentiality of Alcohol and Drug Abuse Patient Records regulations: The Federal rules restrict any use of the information to criminally investigate or prosecute any alcohol or drug abuse patient.[facility] HospitalIn the event this information is protected by the Federal Confidentiality of Alcohol and Drug Abuse Patient Records regulations: The Federal rules restrict any use of the information to criminally investigate or prosecute any alcohol or drug abuse patient.[facility] HospitalIn the event this information is protected by the Federal Confidentiality of Alcohol and Drug Abuse Patient Records regulations: The Federal rules restrict any use of the information to criminally investigate or prosecute any alcohol or drug abuse patient.[facility] HospitalIn the event this information is protected by the Federal Confidentiality of Alcohol and Drug Abuse Patient Records regulations: The Federal rules restrict any use of the information to criminally investigate or prosecute any alcohol or drug abuse patient.[facility] HospitalIn the event this information is protected by the Federal Confidentiality of Alcohol and Drug Abuse Patient Records regulations: The Federal rules restrict any use of the information to criminally investigate or prosecute any alcohol or drug abuse patient.[facility] HospitalIn the event this information is protected by the Federal Confidentiality of Alcohol and Drug Abuse Patient Records regulations: The Federal rules restrict any use of the information to criminally investigate or prosecute any alcohol or drug abuse patient.[facility] HospitalIn the event this information is protected by the Federal Confidentiality of Alcohol and Drug Abuse Patient Records regulations: The Federal rules restrict any use of the information to criminally investigate or prosecute any alcohol or drug abuse patient.[facility] HospitalIn the event this information is protected by the Federal Confidentiality of Alcohol and Drug Abuse Patient Records regulations: The Federal rules restrict any use of the information to criminally investigate or prosecute any alcohol or drug abuse patient.[facility] HospitalIn the event this information is protected by the Federal Confidentiality of Alcohol and Drug Abuse Patient Records regulations: The Federal rules restrict any use of the information to criminally investigate or prosecute any alcohol or drug abuse patient.[facility] HospitalIn the event this information is protected by the Federal Confidentiality of Alcohol and Drug Abuse Patient Records regulations: The Federal rules restrict any use of the information to criminally investigate or prosecute any alcohol or drug abuse patient.[facility] HospitalIn the event this information is protected by the Federal Confidentiality of Alcohol and Drug Abuse Patient Records regulations: The Federal rules restrict any use of the information to criminally investigate or prosecute any alcohol or drug abuse patient.[facility] HospitalIn the event this information is protected by the Federal Confidentiality of Alcohol and Drug Abuse Patient Records regulations: The Federal rules restrict any use of the information to criminally investigate or prosecute any alcohol or drug abuse patient.[facility] HospitalIn the event this information is protected by the Federal Confidentiality of Alcohol and Drug Abuse Patient Records regulations: The Federal rules restrict any use of the information to criminally investigate or prosecute any alcohol or drug abuse patient.[facility] HospitalIn the event this information is protected by the Federal Confidentiality of Alcohol and Drug Abuse Patient Records regulations: The Federal rules restrict any use of the information to criminally investigate or prosecute any alcohol or drug abuse patient.[facility] HospitalIn the event this information is protected by the Federal Confidentiality of Alcohol and Drug Abuse Patient Records regulations: The Federal rules restrict any use of the information to criminally investigate or prosecute any alcohol or drug abuse patient.[facility] HospitalIn the event this information is protected by the Federal Confidentiality of Alcohol and Drug Abuse Patient Records regulations: The Federal rules restrict any use of the information to criminally investigate or prosecute any alcohol or drug abuse patient.[facility] HospitalIn the event this information is protected by the Federal Confidentiality of Alcohol and Drug Abuse Patient Records regulations: The Federal rules restrict any use of the information to criminally investigate or prosecute any alcohol or drug abuse patient.[facility] HospitalIn the event this information is protected by the Federal Confidentiality of Alcohol and Drug Abuse Patient Records regulations: The Federal rules restrict any use of the information to criminally investigate or prosecute any alcohol or drug abuse patient.[facility] HospitalIn the event this information is protected by the Federal Confidentiality of Alcohol and Drug Abuse Patient Records regulations: The Federal rules restrict any use of the information to criminally investigate or prosecute any alcohol or drug abuse patient.[facility] HospitalIn the event this information is protected by the Federal Confidentiality of Alcohol and Drug Abuse Patient Records regulations: The Federal rules restrict any use of the information to criminally investigate or prosecute any alcohol or drug abuse patient.[facility] HospitalIn the event this information is protected by the Federal Confidentiality of Alcohol and Drug Abuse Patient Records regulations: The Federal rules restrict any use of the information to criminally investigate or prosecute any alcohol or drug abuse patient.[facility] HospitalIn the event this information is protected by the Federal Confidentiality of Alcohol and Drug Abuse Patient Records regulations: The Federal rules restrict any use of the information to criminally investigate or prosecute any alcohol or drug abuse patient.[facility] HospitalIn the event this information is protected by the Federal Confidentiality of Alcohol and Drug Abuse Patient Records regulations: The Federal rules restrict any use of the information to criminally investigate or prosecute any alcohol or drug abuse patient.[facility] HospitalIn the event this information is protected by the Federal Confidentiality of Alcohol and Drug Abuse Patient Records regulations: The Federal rules restrict any use of the information to criminally investigate or prosecute any alcohol or drug abuse patient.[facility] HospitalIn the event this information is protected by the Federal Confidentiality of Alcohol and Drug Abuse Patient Records regulations: The Federal rules restrict any use of the information to criminally investigate or prosecute any alcohol or drug abuse patient.[facility] HospitalIn the event this information is protected by the Federal Confidentiality of Alcohol and Drug Abuse Patient Records regulations: The Federal rules restrict any use of the information to criminally investigate or prosecute any alcohol or drug abuse patient.[facility] HospitalIn the event this information is protected by the Federal Confidentiality of Alcohol and Drug Abuse Patient Records regulations: The Federal rules restrict any use of the information to criminally investigate or prosecute any alcohol or drug abuse patient.[facility] HospitalIn the event this information is protected by the Federal Confidentiality of Alcohol and Drug Abuse Patient Records regulations: The Federal rules restrict any use of the information to criminally investigate or prosecute any alcohol or drug abuse patient.[facility] HospitalIn the event this information is protected by the Federal Confidentiality of Alcohol and Drug Abuse Patient Records regulations: The Federal rules restrict any use of the information to criminally investigate or prosecute any alcohol or drug abuse patient.[facility] HospitalIn the event this information is protected by the Federal Confidentiality of Alcohol and Drug Abuse Patient Records regulations: The Federal rules restrict any use of the information to criminally investigate or prosecute any alcohol or drug abuse patient.[facility] HospitalIn the event this information is protected by the Federal Confidentiality of Alcohol and Drug Abuse Patient Records regulations: The Federal rules restrict any use of the information to criminally investigate or prosecute any alcohol or drug abuse patient.[facility] HospitalIn the event this information is protected by the Federal Confidentiality of Alcohol and Drug Abuse Patient Records regulations: The Federal rules restrict any use of the information to criminally investigate or prosecute any alcohol or drug abuse patient.[facility] HospitalIn the event this information is protected by the Federal Confidentiality of Alcohol and Drug Abuse Patient Records regulations: The Federal rules restrict any use of the information to criminally investigate or prosecute any alcohol or drug abuse patient.[facility] HospitalIn the event this information is protected by the Federal Confidentiality of Alcohol and Drug Abuse Patient Records regulations: The Federal rules restrict any use of the information to criminally investigate or prosecute any alcohol or drug abuse patient.[facility] HospitalIn the event this information is protected by the Federal Confidentiality of Alcohol and Drug Abuse Patient Records regulations: The Federal rules restrict any use of the information to criminally investigate or prosecute any alcohol or drug abuse patient.[facility] HospitalIn the event this information is protected by the Federal Confidentiality of Alcohol and Drug Abuse Patient Records regulations: The Federal rules restrict any use of the information to criminally investigate or prosecute any alcohol or drug abuse patient.[facility] HospitalIn the event this information is protected by the Federal Confidentiality of Alcohol and Drug Abuse Patient Records regulations: The Federal rules restrict any use of the information to criminally investigate or prosecute any alcohol or drug abuse patient.[facility] HospitalIn the event this information is protected by the Federal Confidentiality of Alcohol and Drug Abuse Patient Records regulations: The Federal rules restrict any use of the information to criminally investigate or prosecute any alcohol or drug abuse patient.[facility] HospitalIn the event this information is protected by the Federal Confidentiality of Alcohol and Drug Abuse Patient Records regulations: The Federal rules restrict any use of the information to criminally investigate or prosecute any alcohol or drug abuse patient.[facility] HospitalIn the event this information is protected by the Federal Confidentiality of Alcohol and Drug Abuse Patient Records regulations: The Federal rules restrict any use of the information to criminally investigate or prosecute any alcohol or drug abuse patient.[facility] HospitalIn the event this information is protected by the Federal Confidentiality of Alcohol and Drug Abuse Patient Records regulations: The Federal rules restrict any use of the information to criminally investigate or prosecute any alcohol or drug abuse patient.[facility] HospitalIn the event this information is protected by the Federal Confidentiality of Alcohol and Drug Abuse Patient Records regulations: The Federal rules restrict any use of the information to criminally investigate or prosecute any alcohol or drug abuse patient.[facility] HospitalIn the event this information is protected by the Federal Confidentiality of Alcohol and Drug Abuse Patient Records regulations: The Federal rules restrict any use of the information to criminally investigate or prosecute any alcohol or drug abuse patient.[facility] HospitalIn the event this information is protected by the Federal Confidentiality of Alcohol and Drug Abuse Patient Records regulations: The Federal rules restrict any use of the information to criminally investigate or prosecute any alcohol or drug abuse patient.[facility] HospitalIn the event this information is protected by the Federal Confidentiality of Alcohol and Drug Abuse Patient Records regulations: The Federal rules restrict any use of the information to criminally investigate or prosecute any alcohol or drug abuse patient.[facility] HospitalIn the event this information is protected by the Federal Confidentiality of Alcohol and Drug Abuse Patient Records regulations: The Federal rules restrict any use of the information to criminally investigate or prosecute any alcohol or drug abuse patient.[facility] HospitalIn the event this information is protected by the Federal Confidentiality of Alcohol and Drug Abuse Patient Records regulations: The Federal rules restrict any use of the information to criminally investigate or prosecute any alcohol or drug abuse patient.[facility] HospitalIn the event this information is protected by the Federal Confidentiality of Alcohol and Drug Abuse Patient Records regulations: The Federal rules restrict any use of the information to criminally investigate or prosecute any alcohol or drug abuse patient.[facility] HospitalIn the event this information is protected by the Federal Confidentiality of Alcohol and Drug Abuse Patient Records regulations: The Federal rules restrict any use of the information to criminally investigate or prosecute any alcohol or drug abuse patient.[facility] HospitalIn the event this information is protected by the Federal Confidentiality of Alcohol and Drug Abuse Patient Records regulations: The Federal rules restrict any use of the information to criminally investigate or prosecute any alcohol or drug abuse patient.[facility] HospitalIn the event this information is protected by the Federal Confidentiality of Alcohol and Drug Abuse Patient Records regulations: The Federal rules restrict any use of the information to criminally investigate or prosecute any alcohol or drug abuse patient.[facility] HospitalIn the event this information is protected by the Federal Confidentiality of Alcohol and Drug Abuse Patient Records regulations: The Federal rules restrict any use of the information to criminally investigate or prosecute any alcohol or drug abuse patient.[facility] HospitalIn the event this information is protected by the Federal Confidentiality of Alcohol and Drug Abuse Patient Records regulations: The Federal rules restrict any use of the information to criminally investigate or prosecute any alcohol or drug abuse patient.[facility] HospitalIn the event this information is protected by the Federal Confidentiality of Alcohol and Drug Abuse Patient Records regulations: The Federal rules restrict any use of the information to criminally investigate or prosecute any alcohol or drug abuse patient.[facility] HospitalIn the event this information is protected by the Federal Confidentiality of Alcohol and Drug Abuse Patient Records regulations: The Federal rules restrict any use of the information to criminally investigate or prosecute any alcohol or drug abuse patient.[facility] HospitalIn the event this information is protected by the Federal Confidentiality of Alcohol and Drug Abuse Patient Records regulations: The Federal rules restrict any use of the information to criminally investigate or prosecute any alcohol or drug abuse patient.[facility] HospitalIn the event this information is protected by the Federal Confidentiality of Alcohol and Drug Abuse Patient Records regulations: The Federal rules restrict any use of the information to criminally investigate or prosecute any alcohol or drug abuse patient.[facility] HospitalIn the event this information is protected by the Federal Confidentiality of Alcohol and Drug Abuse Patient Records regulations: The Federal rules restrict any use of the information to criminally investigate or prosecute any alcohol or drug abuse patient.[facility] HospitalIn the event this information is protected by the Federal Confidentiality of Alcohol and Drug Abuse Patient Records regulations: The Federal rules restrict any use of the information to criminally investigate or prosecute any alcohol or drug abuse patient.[facility] HospitalIn the event this information is protected by the Federal Confidentiality of Alcohol and Drug Abuse Patient Records regulations: The Federal rules restrict any use of the information to criminally investigate or prosecute any alcohol or drug abuse patient.[facility] HospitalIn the event this information is protected by the Federal Confidentiality of Alcohol and Drug Abuse Patient Records regulations: The Federal rules restrict any use of the information to criminally investigate or prosecute any alcohol or drug abuse patient.[facility] HospitalIn the event this information is protected by the Federal Confidentiality of Alcohol and Drug Abuse Patient Records regulations: The Federal rules restrict any use of the information to criminally investigate or prosecute any alcohol or drug abuse patient.[facility] HospitalIn the event this information is protected by the Federal Confidentiality of Alcohol and Drug Abuse Patient Records regulations: The Federal rules restrict any use of the information to criminally investigate or prosecute any alcohol or drug abuse patient.[facility] HospitalIn the event this information is protected by the Federal Confidentiality of Alcohol and Drug Abuse Patient Records regulations: The Federal rules restrict any use of the information to criminally investigate or prosecute any alcohol or drug abuse patient.[facility] HospitalIn the event this information is protected by the Federal Confidentiality of Alcohol and Drug Abuse Patient Records regulations: The Federal rules restrict any use of the information to criminally investigate or prosecute any alcohol or drug abuse patient.[facility] HospitalIn the event this information is protected by the Federal Confidentiality of Alcohol and Drug Abuse Patient Records regulations: The Federal rules restrict any use of the information to criminally investigate or prosecute any alcohol or drug abuse patient.[facility] HospitalIn the event this information is protected by the Federal Confidentiality of Alcohol and Drug Abuse Patient Records regulations: The Federal rules restrict any use of the information to criminally investigate or prosecute any alcohol or drug abuse patient.[facility] HospitalIn the event this information is protected by the Federal Confidentiality of Alcohol and Drug Abuse Patient Records regulations: The Federal rules restrict any use of the information to criminally investigate or prosecute any alcohol or drug abuse patient.[facility] HospitalIn the event this information is protected by the Federal Confidentiality of Alcohol and Drug Abuse Patient Records regulations: The Federal rules restrict any use of the information to criminally investigate or prosecute any alcohol or drug abuse patient.[facility] HospitalIn the event this information is protected by the Federal Confidentiality of Alcohol and Drug Abuse Patient Records regulations: The Federal rules restrict any use of the information to criminally investigate or prosecute any alcohol or drug abuse patient.[facility] HospitalIn the event this information is protected by the Federal Confidentiality of Alcohol and Drug Abuse Patient Records regulations: The Federal rules restrict any use of the information to criminally investigate or prosecute any alcohol or drug abuse patient.[facility] HospitalIn the event this information is protected by the Federal Confidentiality of Alcohol and Drug Abuse Patient Records regulations: The Federal rules restrict any use of the information to criminally investigate or prosecute any alcohol or drug abuse patient.[facility] HospitalIn the event this information is protected by the Federal Confidentiality of Alcohol and Drug Abuse Patient Records regulations: The Federal rules restrict any use of the information to criminally investigate or prosecute any alcohol or drug abuse patient.[facility] HospitalIn the event this information is protected by the Federal Confidentiality of Alcohol and Drug Abuse Patient Records regulations: The Federal rules restrict any use of the information to criminally investigate or prosecute any alcohol or drug abuse patient.[facility] HospitalIn the event this information is protected by the Federal Confidentiality of Alcohol and Drug Abuse Patient Records regulations: The Federal rules restrict any use of the information to criminally investigate or prosecute any alcohol or drug abuse patient.[facility] HospitalIn the event this information is protected by the Federal Confidentiality of Alcohol and Drug Abuse Patient Records regulations: The Federal rules restrict any use of the information to criminally investigate or prosecute any alcohol or drug abuse patient.[facility] HospitalIn the event this information is protected by the Federal Confidentiality of Alcohol and Drug Abuse Patient Records regulations: The Federal rules restrict any use of the information to criminally investigate or prosecute any alcohol or drug abuse patient.[facility] HospitalIn the event this information is protected by the Federal Confidentiality of Alcohol and Drug Abuse Patient Records regulations: The Federal rules restrict any use of the information to criminally investigate or prosecute any alcohol or drug abuse patient.[facility] Reason for Visit (unrecogniz ed section and content) Reason Comments Radiology CT Specialty Diagnoses / Procedures Referred By Contac t Referred To Contact CT IMAGING Diagnoses Malignant neoplasm of head of pancreas (HCC) Procedures CT CHEST W IVCON DIAGNOSTIC COMPUTED TOMOGRAPHY THORAX W/CONTRAST Grace Bess MD [address] [place] [address] [place] [address] Referral ID Status Reason Start Date Expiration Date V isits Requested Visits Authorized [id number] Closed Auto-Generate d Referral 05/26/2023 06/03/2024 1 1 Reason Comments Radiology NM Referral ID Status Reason Start Date Expiration Date V isits Requested Visits Authorized [id number] Closed Auto-Generate d Referral 08/16/2023 08/31/2024 1 1 Reason Comments Question Reason Comments Opened In Error Reason Comments Care Coordination Treatment questions Reason Comments Care Coordination Follow up question Reason Comments Radiology Pre Procedure Instructions Reason Comments Pancreatic Cancer 1 year follow up Reason Comments Care Coordination Antiemetics for abdirashid tment Reason Comments First Time Treatment Education Reason Comments Pancreatic Cancer Treatment visit Reason Comments Benefits Investigation Reason Comments Care Coordination Cow Tester referral Reason Comments Nutrition Assessment Reason Comments Care Coordination Antiemetics transfer red to [facility] in [place] Reason Comments Care Coordination Follow up call Reason Comments Care Coordination C1D1 treatment follo w up call Reason Comments Pancreatic Cancer 1 week follow Reason Comments Pancreatic Cancer Reason Comments Nutrition Counseling Specialty Diagnoses / Procedures Referred By Riaz t Referred To Contact Diagnoses Malignant neoplasm of head of pancreas (HCC) Grace Bess MD [address] [place] [id number] Luis Miguel Treat [address] [place] [address] Referral ID Status Reason Start Date Expiration Date V isits Requested Visits Authorized [id number] Authorized 02/22/2022 05/23/2022 99 99 Reason Comments [...] Pt Spouse She Req This Date/Time Procedures LAB/Grace Murphy MD [address] [place] [address] Luis Miguel Delgado [address] [place] [address] Referral ID Status Reason Start Date Expiration Date V isits Requested Visits Authorized [id number] Authorized 09/28/2022 05/21/2023 99 99 Reason Comments [...] This Date/Time Procedures LAB/PORT Grace Bess MD [address] [place] [id number] Luis Miguel Delgado [address] [place] [address] Reason Comments CVAD Access Reason Comments Care [...] Expiration Date V isits Requested Visits Authorized [id number] Authorized 05/24/2023 08/22/2023 99 99 Reason Comments Care Coordination Appointment cancella tion Reason Comments Care Coordination cough Reason Comments Lab Orders Reason Comments Pancreatic Cancer 2 week follow up Reason Comments Radiology US Reason Comments Care Coordination CXR results Reason Comments Patient Question Reason Comments Care Coordination Hospital d/c follow up call Reason Comments Care Coordination Port questions Reason Onset Date Comments Refill Request 11/22/2023 PORT 11/22/2023 Clinical Update 11/22/2023 Reason Comments Care [facility] Portogram results Referral ID Status Reason Start Date Expiration Date V isits Requested Visits Authorized [id number] Closed Auto-Generate d Referral 11/21/2023 11/29/2024 1 1 Reason Comments Radio Gen RMP Referral ID Status Reason Start Date Expiration Date V isits Requested Visits Authorized [id number] Closed Auto-Generate d Referral 11/10/2022 10/29/2023 1 1 Referral ID Status Reason Start Date Expiration Date V isits Requested Visits Authorized [id number] Closed Auto-Generate d Referral 07/25/2022 07/29/2023 1 1 Specialty Diagnoses / Procedures Referred By Contac t Referred To Contact CT IMAGING Diagnoses Malignant neoplasm of head of pancreas (HCC) Procedures CT ABD/PEL W IVCON CT ABD & PELVIS W/CONTRAST Grace Bess MD [address] [place] [address] [place] [address] Referral ID Status Reason Start Date Expiration Date V isits Requested Visits Authorized [id number] Closed Auto-Generate d Referral 06/01/2022 06/10/2023 [address] Referral ID Status Reason Start Date Expiration Date V isits Requested Visits Authorized [id number] Closed Auto-Generate d Referral 03/01/2022 03/24/2023 1 1 Specialty Diagnoses / Procedures Referred By Contac t Referred To Contact CT IMAGING Diagnoses Other chronic pancreatitis (HCC) Procedures CT PANCREAS W IVCON CT ABDOMEN W/[place] [id number] [address] [facility] [address] [place] [address] [place] [address] Referral ID Status Reason Start Date Expiration Date V isits Requested Visits Authorized [id number] Closed Auto-Generate d Referral 07/21/2021 08/14/2022 1 1 Care Teams (unrecognized sec tion and content) Pbx Wire Chief Relationship Specialty Start Date End Date Giovanni Salinas II [address] [facility] [address] [place] [address] PCP - General Internal Medicine 11/29/19 Cali Rosamaribel Firas [address] [place] [address] Endocrinology 05/08/20 Pbx Wire Chief Relationship Specialty Start Date End Date Giovanni Salinas II [address] [place] [address] PCP - General Internal Medicine 11/29/19 Cali Rosamaribel Firas [address] [place] [address] Endocrinology 05/08/20 Pbx Wire Chief Relationship Specialty Start Date End Date Giovanni Salinas II [address] [place] [address] PCP - General Internal Medicine 11/29/19 Cali Rosamaribel Firas [address] [place] [address] Endocrinology 05/08/20 Pbx Wire Chief Relationship Specialty Start Date End Date Giovanni Salinas II [address] [place] [address] PCP - General Internal Medicine 11/29/19 Cali Rosamaribel Firas [address] [place] [address] Endocrinology 05/08/20 Pbx Wire Chief Relationship Specialty Start Date End Date Giovanni Salinas II [address] [place] [address] PCP - General Internal Medicine 11/29/19 Cali Rosamaribel Firas [address] [place] [address] Endocrinology 05/08/20 Pbx Wire Chief Relationship Specialty Start Date End Date Giovanni Salinas II [address] [place] [address] PCP - General Internal Medicine 11/29/19 Cali Rosamaribel Melendez [address] [place] [address] Endocrinology 05/08/20 Pbx Wire Chief Relationship Specialty Start Date End Date Giovanni Salinas II [address] [place] [address] PCP - General Internal Medicine 11/29/19 Cali Mehreenailyn Melendez [address] [place] [address] Endocrinology 05/08/20 Pbx Wire Chief Relationship Specialty Start Date End Date Giovanni Salinas II [address] [place] [address] PCP - General Internal Medicine 11/29/19 Cali Mehreenailyn Melendez [address] [place] [address] Endocrinology 05/08/20 Pbx Wire Chief Relationship Specialty Start Date End Date Giovanni Salinas II [address] [place] [address] PCP - General Internal Medicine 11/29/19 César Leiva [address] [place] [address] Endocrinology 05/08/20 Josephine Salomon RN [address] [place] [address] [place] [address] Specialty Shear Operator Hematology/Oncology 03/04/22 Grace Bess MD [address] [place] [address] Physician Hematology/Oncology 03/04/22 Greta Wetzel PA-C [address] [facility] [place] [address] Physician Silk Screener Hematology/Oncology 03/04/22 Pbx Wire Chief Relationship Specialty Start Date End Date Giovanni Salinas II [address] [facility] [address] [place] [address] PCP - General Internal Medicine 11/29/19 César Leiva [address] [place] [address] Endocrinology 05/08/20 Josephine Salomon RN [address] [facility] [place] [address] Specialty Shear Operator Hematology/Oncology 03/04/22 Grace Bess MD [address] [place] [address] Physician Hematology/Oncology 03/04/22 Greta Wetzel PA-C [address] [facility] [place] [address] Physician Silk Screener Hematology/Oncology 03/04/22 Pbx Wire Chief Relationship Specialty Start Date End Date Giovanni Salinas II [address] [facility] [address] [place] [address] PCP - General Internal Medicine 11/29/19 César Leiva [address] [place] [address] Endocrinology 05/08/20 Josephine Salomon RN [address] [facility] [place] [address] Specialty Shear Operator Hematology/Oncology 03/04/22 Grace Bess MD [address] [place] [address] Physician Hematology/Oncology 03/04/22 Greta Wetzel PA-C [address] [facility] [place] [address] Physician Silk Screener Hematology/Oncology 03/04/22 Pbx Wire Chief Relationship Specialty Start Date End Date Giovanni Salinas II [address] [facility] [address] [place] [address] PCP - General Internal Medicine 11/29/19 César Leiva [address] [place] [address] Endocrinology 05/08/20 Josephine Salomon RN [address] [facility] [place] [address] Specialty Shear Operator Hematology/Oncology 03/04/22 Grace Bess MD [address] [place] [address] Physician Hematology/Oncology 03/04/22 Greta Wetzel PA-C [address] [facility] [place] [address] Physician Silk Screener Hematology/Oncology 03/04/22 Pbx Wire Chief Relationship Specialty Start Date End Date Giovanni Salinas II [address] [place] [address] PCP - General Internal Medicine 11/29/19 César Leiva [address] [place] [address] Endocrinology 05/08/20 Josephine Salomon RN [address] [facility] [place] [address] Specialty Shear Operator Hematology/Oncology 03/04/22 Grace Bess MD [address] [facility] [place] [address] Physician Hematology/Oncology 03/04/22 Greta Wetzel PA-C [address] [facility] [place] [address] Physician Silk Screener Hematology/Oncology 03/04/22 Pbx Wire Chief Relationship Specialty Start Date End Date Giovanni Salinas II [address] [place] [address] PCP - General Internal Medicine 11/29/19 César Leiva [address] [place] [address] Endocrinology 05/08/20 Josephine Salomon RN [address] [facility] [place] [address] Specialty Shear Operator Hematology/Oncology 03/04/22 Grace Bess MD [address] [place] [address] Physician Hematology/Oncology 03/04/22 Greta Wetzel PA-C [address] [facility] [place] [address] Physician Silk Screener Hematology/Oncology 03/04/22 Pbx Wire Chief Relationship Specialty Start Date End Date Giovanni Salinas II [address] [place] [address] PCP - General Internal Medicine 11/29/19 César Leiva [address] [place] [address] Endocrinology 05/08/20 Josephine Salomon RN [address] [facility] [place] [address] Specialty Shear Operator Hematology/Oncology 03/04/22 Grace Bess MD [address] [place] [address] Physician Hematology/Oncology 03/04/22 Greta Wetzel PA-C [address] [facility] [place] [address] Physician Silk Screener Hematology/Oncology 03/04/22 Pbx Wire Chief Relationship Specialty Start Date End Date Giovanni Salinas II [address] [place] [address] PCP - General Internal Medicine 11/29/19 César Leiva [address] [place] [address] Endocrinology 05/08/20 Josephine Salomon RN [address] [facility] [place] [address] Specialty Shear Operator Hematology/Oncology 03/04/22 Grace Bess MD [address] [place] [address] Physician Hematology/Oncology 03/04/22 Greta Wetzel PA-C [address] [place] [address] Physician Silk Screener Hematology/Oncology 03/04/22 Pbx Wire Chief Relationship Specialty Start Date End Date Giovanni Salinas II [address] [place] [address] PCP - General Internal Medicine 11/29/19 César Leiva [address] [place] [address] Endocrinology 05/08/20 Josephine Salomon RN [address] [facility] [place] [address] Specialty Shear Operator Hematology/Oncology 03/04/22 Grace Bess MD [address] [place] [address] Physician Hematology/Oncology 03/04/22 Greta Wetzel PA-C [address] [facility] [place] [address] Physician Silk Screener Hematology/Oncology 03/04/22 Pbx Wire Chief Relationship Specialty Start Date End Date Giovanni Salinas II [address] [place] [address] PCP - General Internal Medicine 11/29/19 [facility] [address] [place] [address] Endocrinology 05/08/20 Josephine Salomon RN [address] [facility] [place] [address] Specialty Shear Operator Hematology/Oncology 03/04/22 Grace Bess MD [address] [place] [address] Physician Hematology/Oncology 03/04/22 Greta Wetzel PA-C [address] [facility] [place] [address] Physician Silk Screener Hematology/Oncology 03/04/22 Pbx Wire Chief Relationship Specialty Start Date End Date Giovanni Salinas II [address] [place] [address] PCP - General Internal Medicine 11/29/19 CaliCésar Firas [address] [place] [address] Endocrinology 05/08/20 Josephine Salomon RN [address] [facility] [place] [address] Specialty Shear Operator Hematology/Oncology 03/04/22 Grace Bess MD [address] [place] [address] Physician Hematology/Oncology 03/04/22 Greta Wetzel PA-C [address] [facility] [place] [address] Physician Silk Screener Hematology/Oncology 03/04/22 Pbx Wire Chief Relationship Specialty Start Date End Date Giovanni Salinas II [address] [place] [address] PCP - General Internal Medicine 11/29/19 César Leiva [address] [place] [address] Endocrinology 05/08/20 Josephine Salomon RN [address] [facility] [place] [address] Specialty Shear Operator Hematology/Oncology 03/04/22 Grace Bess MD [address] [place] [address] Physician Hematology/Oncology 03/04/22 Greta Wetzel PA-C [address] [facility] [place] [address] Physician Silk Screener Hematology/Oncology 03/04/22 Pbx Wire Chief Relationship Specialty Start Date End Date Giovanni Salinas II [address] [place] [address] PCP - General Internal Medicine 11/29/19 César Leiva Firjanel [address] [place] [address] Endocrinology 05/08/20 Josephine Salomon RN [address] [facility] [place] [address] Specialty Shear Operator Hematology/Oncology 03/04/22 Grace Bess MD [address] [place] [address] Physician Hematology/Oncology 03/04/22 Greta Wetzel PA-C [address] [facility] [place] [address] Physician Silk Screener Hematology/Oncology 03/04/22 Pbx Wire Chief Relationship Specialty Start Date End Date Giovanni Salinas II [address] [place] [address] PCP - General Internal Medicine 11/29/19 César Leiva [address] [place] [address] Endocrinology 05/08/20 Josephine Salomon RN [address] [facility] [place] [address] Specialty Shear Operator Hematology/Oncology 03/04/22 Grace Bess MD [address] [place] [address] Physician Hematology/Oncology 03/04/22 Greta Wetzel PA-C [address] [facility] [place] [address] Physician Silk Screener Hematology/Oncology 03/04/22 Pbx Wire Chief Relationship Specialty Start Date End Date Giovanni Salinas II [address] [place] [address] PCP - General Internal Medicine 11/29/19 César Leiva [address] [place] [address] Endocrinology 05/08/20 Josephine Salomon RN [address] [facility] [place] [address] Specialty Shear Operator Hematology/Oncology 03/04/22 Grace Bess MD [address] [place] [address] Physician Hematology/Oncology 03/04/22 Greta Wetzel PALaurenC [address] [facility] [place] [address] Physician Silk Screener Hematology/Oncology 03/04/22 Pbx Wire Chief Relationship Specialty Start Date End Date Giovanni Salinas II [address] [place] [address] PCP - General Internal Medicine 11/29/19 César Leiva [address] [place] [address] Endocrinology 05/08/20 Josephine Salomon RN [address] [facility] [place] [address] Specialty Shear Operator Hematology/Oncology 03/04/22 Grace Bess MD [address] [place] [address] Physician Hematology/Oncology 03/04/22 Greta Wetzel PA-C [address] [facility] [place] [address] Physician Silk Screener Hematology/Oncology 03/04/22 Pbx Wire Chief Relationship Specialty Start Date End Date Giovanni Salinas II [address] [place] [address] PCP - General Internal Medicine 11/29/19 César Leiva [address] [place] [address] Endocrinology 05/08/20 Josephine Salomon, RN [address] [facility] [place] [address] Specialty Shear Operator Hematology/Oncology 03/04/22 Grace Bess MD [address] [place] [address] Physician Hematology/Oncology 03/04/22 Greta Wetzel, PA-C [address] [facility] [place] [address] Physician Silk Screener Hematology/Oncology 03/04/22 Pbx Wire Chief Relationship Specialty Start Date End Date Giovanni Salinas II [address] [facility] [address] [place] [address] PCP - General Internal Medicine 11/29/19 César Leiva MD [address] [place] [address] Endocrinology 05/08/20 Josephine Salomon RN [address] [facility] [place] [address] Specialty Shear Operator Hematology/Oncology 03/04/22 Grace Bess MD [address] [place] [address] Physician Hematology/Oncology 03/04/22 Greta Wetzel, PA-C [address] [facility] [place] [address] Physician Silk Screener Hematology/Oncology 03/04/22 Pbx Wire Chief Relationship Specialty Start Date End Date Giovanni Salinas II [address] [facility] [address] [place] [address] PCP - General Internal Medicine 11/29/19 César Leiva MD [address] [place] [address] Endocrinology 05/08/20 Josephine Salomon, RN [address] [facility] [place] [address] Specialty Shear Operator Hematology/Oncology 03/04/22 Grace Bess MD [address] [place] [address] Physician Hematology/Oncology 03/04/22 Greta Wetzel PA-C [address] [facility] [place] [address] Physician Silk Screener Hematology/Oncology 03/04/22 Pbx Wire Chief Relationship Specialty Start Date End Date Giovanni Salinas II [address] [facility] [address] [place] [address] PCP - General Internal Medicine 11/29/19 César Leiva MD [address] [place] [address] Endocrinology 05/08/20 Josephine Salomon, RN [address] [facility] [place] [address] Specialty Shear Operator Hematology/Oncology 03/04/22 Grace Bess MD [address] [place] [address] Physician Hematology/Oncology 03/04/22 Greta Wetzel PA-C [address] [facility] [place] [address] Physician Silk Screener Hematology/Oncology 03/04/22 Pbx Wire Chief Relationship Specialty Start Date End Date Giovanni Salinas II [address] [place] [address] PCP - General Internal Medicine 11/29/19 César Leiva MD [address] [place] [address] Endocrinology 05/08/20 Josephine Salomon, RN [address] [facility] [place] [address] Specialty Shear Operator Hematology/Oncology 03/04/22 Grace Bess MD [address] [place] [address] Physician Hematology/Oncology 03/04/22 Greta Wetzel PA-C [address] [facility] [place] [address] Physician Silk Screener Hematology/Oncology 03/04/22 Pbx Wire Chief Relationship Specialty Start Date End Date Giovanni Salinas II [address] [place] [address] PCP - General Internal Medicine 11/29/19 César Leiva MD [address] [place] [address] Endocrinology 05/08/20 Josephine Salomon, RN [address] [facility] [place] [address] Specialty Shear Operator Hematology/Oncology 03/04/22 Grace Bess MD [address] [facility] [place] [address] Physician Hematology/Oncology 03/04/22 Greta Wetzel PA-C [address] [facility] [place] [address] Physician Silk Screener Hematology/Oncology 03/04/22 Pbx Wire Chief Relationship Specialty Start Date End Date Giovanni Salinas II [address] [place] [address] PCP - General Internal Medicine 11/29/19 César Leiva MD [address] [place] [address] Endocrinology 05/08/20 Josephine Salomon, LUIS ANTONIO [address] [facility] [place] [address] Specialty Shear Operator Hematology/Oncology 03/04/22 Grace Bess MD [address] [place] [address] Physician Hematology/Oncology 03/04/22 Greta Wetzel, PA-C [address] [facility] [place] [address] Physician Silk Screener Hematology/Oncology 03/04/22 Pbx Wire Chief Relationship Specialty Start Date End Date Giovanni Salinsa II [address] [facility] [address] [place] [address] PCP - General Internal Medicine 11/29/19 César Leiva MD [address] [place] [address] Endocrinology 05/08/20 Josephine Salomon RN [address] [facility] [place] [address] Specialty Shear Operator Hematology/Oncology 03/04/22 Grace Bess MD [address] [facility] [place] [address] Physician Hematology/Oncology 03/04/22 Greta Wetzel, PA-C [address] [facility] [place] [address] Physician Silk Screener Hematology/Oncology 03/04/22 Pbx Wire Chief Relationship Specialty Start Date End Date Giovanni Salinas II [address] [place] [address] PCP - General Internal Medicine 11/29/19 César Leiva MD [address] [facility] [place] [address] Endocrinology 05/08/20 Josephine Salomon RN [address] [facility] [place] [address] Specialty Shear Operator Hematology/Oncology 03/04/22 Grace Bess MD [address] [place] [address] Physician Hematology/Oncology 03/04/22 Greta Wetzel PA-C [address] [facility] [place] [address] Physician Silk Screener Hematology/Oncology 03/04/22 Pbx Wire Chief Relationship Specialty Start Date End Date Giovanni Salinas II [address] [place] [address] PCP - General Internal Medicine 11/29/19 César Leiva MD [address] [place] [address] Endocrinology 05/08/20 Josephine Salomon RN [address] [facility] [place] [address] Specialty Shear Operator Hematology/Oncology 03/04/22 Grace Bess MD [address] [address] Physician Hematology/Oncology 03/04/22 Greta Wetzel PA-C [address] [place] [address] Physician Silk Screener Hematology/Oncology 03/04/22 Pbx Wire Chief Relationship Specialty Start Date End Date Giovanni Salinas II [address] [place] [address] PCP - General Internal Medicine 11/29/19 César Leiva MD [address] [place] [address] Endocrinology 05/08/20 Josephine Salomon, RN [address] [facility] [place] [address] Specialty Shear Operator Hematology/Oncology 03/04/22 Grace Bess MD [address] [place] [address] Physician Hematology/Oncology 03/04/22 Greta Wetzel PA-C [address] [facility] [place] [address] Physician Silk Screener Hematology/Oncology 03/04/22 Pbx Wire Chief Relationship Specialty Start Date End Date Giovanni Salinas II [address] [place] [address] PCP - General Internal Medicine 11/29/19 César Leiva MD [address] [place] [address] Endocrinology 05/08/20 Josephine Salomon RN [address] [facility] [place] [address] Specialty Shear Operator Hematology/Oncology 03/04/22 Grace Bess MD [address] [facility] [place] [address] Physician Hematology/Oncology 03/04/22 Greta Wetzel PA-C [address] [place] [address] [place] [address] Physician Silk Screener Hematology/Oncology 03/04/22 Pbx Wire Chief Relationship Specialty Start Date End Date Giovanni Salinas II [address] [place] [address] PCP - General Internal Medicine 11/29/19 César Leiva MD [address] [place] [address] Endocrinology 05/08/20 Josephine Salomon RN [address] [facility] [place] [address] Specialty Shear Operator Hematology/Oncology 03/04/22 Grace Bess MD [address] [facility] [place] [address] Physician Hematology/Oncology 03/04/22 Greta Wetzel PA-C [address] [facility] [place] [address] Physician Silk Screener Hematology/Oncology 03/04/22 Pbx Wire Chief Relationship Specialty Start Date End Date Giovanni Salinas II [address] [facility] [address] [place] [address] PCP - General Internal Medicine 11/29/19 César Leiva MD [address] [place] [address] Endocrinology 05/08/20 Josephine Salomon RN [address] [facility] [place] [address] Specialty Shear Operator Hematology/Oncology 03/04/22 Grace Bess MD [address] [facility] [place] [address] Physician Hematology/Oncology 03/04/22 Greta Wetzel PA-C [address] [facility] [place] [address] Physician Silk Screener Hematology/Oncology 03/04/22 Pbx Wire Chief Relationship Specialty Start Date End Date Giovanni Salinas II [address] [place] [address] PCP - General Internal Medicine 11/29/19 César Leiva MD [address] [place] [address] Endocrinology 05/08/20 Josephine Salomon, LUIS ANTONIO [address] [facility] [place] [address] Specialty Shear Operator Hematology/Oncology 03/04/22 Grace Bess MD [address] [facility] [place] [address] Physician Hematology/Oncology 03/04/22 Greta Wetzel PA-C [address] [facility] [place] [address] Physician Silk Screener Hematology/Oncology 03/04/22 Pbx Wire Chief Relationship Specialty Start Date End Date Giovanni Salinas II [address] [place] [address] PCP - General Internal Medicine 11/29/19 César Leiva MD [address] [place] [address] Endocrinology 05/08/20 Josephine Salomon RN [address] [facility] [place] [address] Specialty Shear Operator Hematology/Oncology 03/04/22 Grace Bess MD [address] [facility] [place] [address] Physician Hematology/Oncology 03/04/22 Greta Wetzel PA-C [address] [place] [address] [place] [address] Physician Silk Screener Hematology/Oncology 03/04/22 Pbx Wire Chief Relationship Specialty Start Date End Date Giovanni Salinas II [address] [address] PCP - General Internal Medicine 11/29/19 César Leiva MD [address] [place] [address] Endocrinology 05/08/20 Josephine Salomon RN [address] [facility] [place] [address] Specialty Shear Operator Hematology/Oncology 03/04/22 Grace Bess MD [address] [facility] [place] [address] Physician Hematology/Oncology 03/04/22 Greta Wetzel PA-C [address] [place] [address] [place] [address] Physician Silk Screener Hematology/Oncology 03/04/22 Pbx Wire Chief Relationship Specialty Start Date End Date Giovanni Salinas II [address] [place] [address] PCP - General Internal Medicine 11/29/19 César Leiva MD [address] [place] [address] Endocrinology 05/08/20 Josephine Salomon, RN [address] [facility] [place] [address] Specialty Shear Operator Hematology/Oncology 03/04/22 Grace Bess MD [address] [place] [address] Physician Hematology/Oncology 03/04/22 Greta Wetzel PA-C [address] [facility] [place] [address] Physician Silk Screener Hematology/Oncology 03/04/22 Team Status: Active Member Role Status Dates Giovanni Salinas II MD Primary Care Provider Active Team Status: Inactive Member Role Status Dates Giovanni Salinas II MD Primary Care Provider Active Jemma Padilla APRN Emergency Provider Active Pbx Wire Chief Relationship Specialty Start Date End Date Giovanni Salinas II [address] [facility] [address] [place] [address] PCP - General Internal Medicine 11/29/19 César Leiva MD [address] [place] [address] Endocrinology 05/08/20 Josephine Salomon, RN [address] [facility] [place] [address] Specialty Shear Operator Hematology/Oncology 03/04/22 Grace Bess MD [address] [place] [address] Physician Hematology/Oncology 03/04/22 Greta Wetzel PA-C [address] [place] [address] [place] [address] Physician Silk Screener Hematology/Oncology 03/04/22 Pbx Wire Chief Relationship Specialty Start Date End Date Giovanni Salinas II [address] [place] [address] PCP - General Internal Medicine 11/29/19 César Leiva MD [address] [place] [address] Endocrinology 05/08/20 Josephine Salomon RN [address] [facility] [place] [address] Specialty Shear Operator Hematology/Oncology 03/04/22 Grace Bess MD [address] [place] [address] [place] [address] Physician Hematology/Oncology 03/04/22 Greta Wetzel PA-C [address] [place] [address] [place] [address] Physician Silk Screener Hematology/Oncology 03/04/22 Pbx Wire Chief Relationship Specialty Start Date End Date Giovanni Salinas II, MD [address] [facility] [address] [place] [address] PCP - General Internal Medicine 11/29/19 César Leiva MD [address] [place] [address] Endocrinology 05/08/20 Josephine Salomon RN [address] [facility] [place] [address] Specialty Shear Operator Hematology/Oncology 03/04/22 Grace Bess MD [address] [facility] [place] [address] Physician Hematology/Oncology 03/04/22 Greta Wetzel PA-C [address] [facility] [place] [address] Physician Silk Screener Hematology/Oncology 03/04/22 Pbx Wire Chief Relationship Specialty Start Date End Date Giovanni Salinas II, MD [address] [place] [address] PCP - General Internal Medicine 11/29/19 César Leiva MD [address] [facility] [place] [id number] Endocrinology 05/08/20 Josephine Salomon RN [address] [facility] [place] [address] Specialty Shear Operator Hematology/Oncology 03/04/22 Grace Bess MD [address] [facility] [place] [address] Physician Hematology/Oncology 03/04/22 Greta Wetzel PA-C [address] [facility] [place] [address] Physician Silk Screener Hematology/Oncology 03/04/22 Pbx Wire Chief Relationship Specialty Start Date End Date Giovanni Salinas II, MD [address] [place] [address] PCP - General Internal Medicine 11/29/19 César Leiva MD [address] [place] [address] Endocrinology 05/08/20 Josephine Salomon, RN [address] [facility] [address] [place], [place] [address] Specialty Shear Operator Hematology/Oncology 03/04/22 Grace Bess MD [address] [place] [address] Physician Hematology/Oncology 03/04/22 Greta Wetzel PA-C [address] [facility] [place] [address] Physician Silk Screener Hematology/Oncology 03/04/22 Pbx Wire Chief Relationship Specialty Start Date End Date Giovanni Salinas II, MD [address] [facility] [address] [place] [address] PCP - General Internal Medicine 11/29/19 César Leiva MD [address] [place] [address] Endocrinology 05/08/20 Josephine Salomon RN [address] [facility] [place] [address] Specialty Shear Operator Hematology/Oncology 03/04/22 Grace Bess MD [address] [place] [address] Physician Hematology/Oncology 03/04/22 Greta Wetzel PA-C [address] [facility] [place] [address] Physician Silk Screener Hematology/Oncology 03/04/22 Pbx Wire Chief Relationship Specialty Start Date End Date Giovanni Salinas II, MD [address] [place] [address] PCP - General Internal Medicine 11/29/19 César Leiva MD [address] [place] [address] Endocrinology 05/08/20 Josephine Salomon RN [address] [facility] [place] [address] Specialty Shear Operator Hematology/Oncology 03/04/22 Grace Bess MD [address] [facility] [place] [address] Physician Hematology/Oncology 03/04/22 Greta Wetzel, LEONC [address] [facility] [place] [address] Physician Silk Screener Hematology/Oncology 03/04/22 Pbx Wire Chief Relationship Specialty Start Date End Date Giovanni Salinas II, MD [address] [facility] [address] [place] [address] PCP - General Internal Medicine 11/29/19 César Leiva MD [address] [place] [address] Endocrinology 05/08/20 Josephine Salomon RN [address] [facility] [place] [address] Specialty Shear Operator Hematology/Oncology 03/04/22 Grace Bess MD [address] [facility] [place] [address] Physician Hematology/Oncology 03/04/22 Greta Wetzel PA-C [address] [place] [address] [place] [address] Physician Silk Screener Hematology/Oncology 03/04/22 Pbx Wire Chief Relationship Specialty Start Date End Date Giovanni Salinas II, MD [address] [place] [address] PCP - General Internal Medicine 11/29/19 César Leiva MD [address] [place] [address] Endocrinology 05/08/20 Josephine Salomon, RN [address] [facility] [place] [address] Specialty Shear Operator Hematology/Oncology 03/04/22 Grace Bess MD [address] [facility] [place] [address] Physician Hematology/Oncology 03/04/22 Greta Wetzel PA-C [address] [place] [address] [place] [address] Physician Silk Screener Hematology/Oncology 03/04/22 Pbx Wire Chief Relationship Specialty Start Date End Date Giovanni Salinas II, MD [address] [place] [address] PCP - General Internal Medicine 11/29/19 César Leiva MD [address] [place] [address] Endocrinology 05/08/20 Josephine Salomon RN [address] [facility] [place] [address] Specialty Shear Operator Hematology/Oncology 03/04/22 Grace Bess MD [address] [facility] [place] [address] Physician Hematology/Oncology 03/04/22 Greta Wetzel PA-C [address] [place] [address] [place] [address] Physician Silk Screener Hematology/Oncology 03/04/22 Pbx Wire Chief Relationship Specialty Start Date End Date Giovanni Salinas II, MD [place] [facility] [address] PCP - General Internal Medicine 11/29/19 César Leiva MD [address] [place] [address] Endocrinology 05/08/20 Josephine Salomon RN [address] [facility] [place] [address] Specialty Shear Operator Hematology/Oncology 03/04/22 Grace Bess MD 417 [facility] [place] [address] Physician Hematology/Oncology 03/04/22 Greta Wetzel PA-C [address] [facility] [place] [address] Physician Silk Screener Hematology/Oncology 03/04/22 Pbx Wire Chief Relationship Specialty Start Date End Date Giovanni Salinas II, MD [address] [place] [address] PCP - General Internal Medicine 11/29/19 César Leiva MD [address] [place] [address] Endocrinology 05/08/20 Josephine Salomon, RN [address] [facility] [address] [place], [place] [address] Specialty Shear Operator Hematology/Oncology 03/04/22 Grace Bess MD [address] [place] [address] Physician Hematology/Oncology 03/04/22 Greta Wetzel PA-C [address] [facility] [place] [address] Physician Silk Screener Hematology/Oncology 03/04/22 Pbx Wire Chief Relationship Specialty Start Date End Date Giovanni Salinas II, MD [address] [facility] [address] [place] [address] PCP - General Internal Medicine 11/29/19 César Leiva MD [address] [place] [address] Endocrinology 05/08/20 Josephine Salomon, RN [address] [facility] [place] [address] Specialty Shear Operator Hematology/Oncology 03/04/22 Grace Bess MD [address] [place] [address] Physician Hematology/Oncology 03/04/22 Greta Wetzel PA-C [address] [facility] [place] [address] Physician Silk Screener Hematology/Oncology 03/04/22 Pbx Wire Chief Relationship Specialty Start Date End Date Giovanni Salinas II, MD [address] [place] [address] PCP - General Internal Medicine 11/29/19 César Leiva MD [address] [place] [address] Endocrinology 05/08/20 Josephine Salomon RN [address] [facility] [place] [address] Specialty Shear Operator Hematology/Oncology 03/04/22 Grace Bess MD [address] [place] [address] Physician Hematology/Oncology 03/04/22 Greta Wetzel PA-C [address] [facility] [place] [address] Physician Silk Screener Hematology/Oncology 03/04/22 Pbx Wire Chief Relationship Specialty Start Date End Date Giovanni Salinas II, MD [address] [place] [address] PCP - General Internal Medicine 11/29/19 César Leiva MD [address] [place] [address] Endocrinology 05/08/20 Josephine Salomon RN [address] [place] [address] Specialty Shear Operator Hematology/Oncology 03/04/22 Grace Bess MD [address] [place] [address] Physician Hematology/Oncology 03/04/22 Greta Wetzel PA-C [address] [place] [address] [place] [address] Physician Silk Screener Hematology/Oncology 03/04/22 Pbx Wire Chief Relationship Specialty Start Date End Date Giovanni Salinas II, MD [address] [place] [address] PCP - General Internal Medicine 11/29/19 César Leiva MD [address] [place] [address] [address] [place] [address] Endocrinology 05/08/20 Josephine Salomon, RN [address] [place] [address] [place] [address] Specialty Shear Operator Hematology/Oncology 03/04/22 Grace Bess MD [address] [place] [address] Physician Hematology/Oncology 03/04/22 Greta Wetzel PA-C [address] [place] [address] [place] [address] Physician Silk Screener Hematology/Oncology 03/04/22 Pbx Wire Chief Relationship Specialty Start Date End Date Giovanni Salinas II, MD [address] [place] [address] PCP - General Internal Medicine 11/29/19 César Leiva MD [address] [place] [address] Endocrinology 05/08/20 Josephine Salomon RN 417 [facility] [place] [address] Specialty Shear Operator Hematology/Oncology 03/04/22 Grace Bess MD 417 [facility] [place] [address] Physician Hematology/Oncology 03/04/22 Greta Wetzel PA-C [address] [place] [address] [place] [address] Physician Silk Screener Hematology/Oncology 03/04/22 Pbx Wire Chief Relationship Specialty Start Date End Date Giovanni Sailnas II, MD [address] [facility] [address] [place] [address] PCP - General Internal Medicine 11/29/19 César Leiva MD [address] [place] [address] Endocrinology 05/08/20 Josephine Salomon RN [address] [facility] [place] [address] Specialty Shear Operator Hematology/Oncology 03/04/22 Grace Bess MD 417 [facility] [place] [address] Physician Hematology/Oncology 03/04/22 Greta Wetzel PA-C [address] [place] [address] [place] [address] Physician Silk Screener Hematology/Oncology 03/04/22 Pbx Wire Chief Relationship Specialty Start Date End Date Giovanni Salinas II, MD [address] [facility] [address] [place] [address] PCP - General Internal Medicine 11/29/19 César Leiva MD [address] [place] [address] Endocrinology 05/08/20 Josephine Salomon, LUIS ANTONIO [address] [facility] [place] [address] Specialty Shear Operator Hematology/Oncology 03/04/22 Grace Bess MD [address] [place] [address] Physician Hematology/Oncology 03/04/22 Greta Wetzel PA-C [address] [facility] [place] [address] Physician Silk Screener Hematology/Oncology 03/04/22 Pbx Wire Chief Relationship Specialty Start Date End Date Giovanni Salinas II, MD [address] [facility] [address] [place] [address] PCP - General Internal Medicine 11/29/19 César Leiva MD [address] [place] [address] Endocrinology 05/08/20 Josephine Salomon, RN [address] [facility] [place] [address] Specialty Shear Operator Hematology/Oncology 03/04/22 Grace Bess MD [address] [place] [address] Physician Hematology/Oncology 03/04/22 Greta Wetzel PA-C [address] [place] [address] [place] [address] Physician Silk Screener Hematology/Oncology 03/04/22 Pbx Wire Chief Relationship Specialty Start Date End Date Giovanni Salinas II, MD [address] [facility] [address] [place] [address] PCP - General Internal Medicine 11/29/19 Cés[place] [address] [place] [address] [address] [place] [address] Endocrinology 05/08/20 Josephine Salomon RN [address] [facility] [place] [address] Specialty Shear Operator Hematology/Oncology 03/04/22 Grace Bess MD [address] [place] [address] [place] [address] Physician Hematology/Oncology 03/04/22 Greta Wetzel PA-C [address] [place] [address] [place] [address] Physician Silk Screener Hematology/Oncology 03/04/[address] [facility] [place] [address] Registered Dietitian Nutrition 06/07/23 Pbx Wire Chief Relationship Specialty Start Date End Date Giovanni Salinas II, MD [address] [facility] [address] [place] [address] PCP - General Internal Medicine 11/29/19 César Leiva MD [address] [place] [address] Endocrinology 05/08/20 Josephine Salomon, RN [address] [facility] [place] [address] Specialty Shear Operator Hematology/Oncology 03/04/22 Grace Bess MD 417 [facility] [place] [address] Physician Hematology/Oncology 03/04/22 Greta Wetzel PA-C [address] [place] [address] [place] [address] Physician Silk Screener Hematology/Oncology 03/04/[address] [facility] [place] [address] Registered Dietitian Nutrition 06/07/23 Pbx Wire Chief Relationship Specialty Start Date End Date Giovanni Salinas II, MD [address] [facility] [address] [place] [address] PCP - General Internal Medicine 11/29/19 César Leiva MD [address] [place] [address] Endocrinology 05/08/20 Josephine Salomon, RN [address] [facility] [place] [address] Specialty Shear Operator Hematology/Oncology 03/04/22 Grace Bess MD 417 [facility] [place] [address] Physician Hematology/Oncology 03/04/22 Greta Wetzel PA-C [address] [facility] [place] [address] Physician Silk Screener Hematology/Oncology 03/04/[address] [facility] [place] [address] Registered Dietitian Nutrition 06/07/23 Pbx Wire Chief Relationship Specialty Start Date End Date Giovanni Salinas II, MD [address] [place] [address] PCP - General Internal Medicine 11/29/19 César Leiva MD [address] [facility] [address] [place] [address] Endocrinology 05/08/20 Josephine Salomon RN 417 [facility] [place] [address] Specialty Shear Operator Hematology/Oncology 03/04/22 Grace Bess MD 417 [facility] [place] [address] Physician Hematology/Oncology 03/04/22 Greta Wetzel PA-C [address] [facility] [place] [address] Physician Silk Screener Hematology/Oncology 03/04/[address] [facility] [place] [address] Registered Dietitian Nutrition 06/07/23 Pbx Wire Chief Relationship Specialty Start Date End Date Giovanni Salinas MD [address] [place] [address] PCP - ACO Reach 10/13/22 Giovanni Salinas MD 112 [facility] [address] [place] [address] PCP - General Internal Medicine 10/20/22 Pbx Wire Chief Relationship Specialty Start Date End Date Giovanni Salinas II, MD [address] [place] [address] PCP - General Internal Medicine 11/29/19 César Leiva MD [address] [place] [address] Endocrinology 05/08/20 Josephine Salomon RN [address] [facility] [place] [address] Specialty Shear Operator Hematology/Oncology 03/04/22 Grace Bess MD [address] [place] [address] [place] [id number] Physician Hematology/Oncology 03/04/22 Greta Wetzel PA-C [address] [place] [address] [place] [address] Physician Silk Screener Hematology/Oncology 03/04/[address] [place] [address] [place] [address] Registered Dietitian Nutrition 06/07/23 Pbx Wire Chief Relationship Specialty Start Date End Date Giovanni Salinas II, MD [address] [facility] [address] [place] [address] PCP - General Internal Medicine 11/29/19 César Leiva MD [address] [place] [address] Endocrinology 05/08/20 Josephine Salomon RN [address] [facility] [place] [address] Specialty Shear Operator Hematology/Oncology 03/04/22 Grace Bess MD 417 [facility] [place] [address] Physician Hematology/Oncology 03/04/22 Greta Wetzel PA-C [address] [place] [address] [place] [address] Physician Silk Screener Hematology/Oncology 03/04/[address] [facility] [place] [address] Registered Dietitian Nutrition 06/07/23 Pbx Wire Chief Relationship Specialty Start Date End Date Giovanni Salinas II, MD [address] [facility] [address] [place] [address] PCP - General Internal Medicine 11/29/19 César Leiva MD [address] [facility] [address] [place] [address] Endocrinology 05/08/20 Josephine Salomon RN [address] [facility] [place] [address] Specialty Shear Operator Hematology/Oncology 03/04/22 Grace Bess MD 417 [facility] [place] [address] Physician Hematology/Oncology 03/04/22 Greta Wetzel PA-C [address] [facility] [place] [address] Physician Silk Screener Hematology/Oncology 03/04/[address] [facility] [place] [address] Registered Dietitian Nutrition 06/07/23 Pbx Wire Chief Relationship Specialty Start Date End Date Giovanni Salinas II, MD [address] [place] [address] PCP - General Internal Medicine 11/29/19 César Leiva MD [address] [place] [address] Endocrinology 05/08/20 Josephine Salomon, RN [address] [facility] [place] [address] Specialty Shear Operator Hematology/Oncology 03/04/22 Grace Bess MD [address] [place] [address] [place] [address] Physician Hematology/Oncology 03/04/22 Greta Wetzel PA-C [address] [place] [address] [place] [address] Physician Silk Screener Hematology/Oncology 03/04/[address] [place] [address] [place] [address] Registered Dietitian Nutrition 06/07/23 Pbx Wire Chief Relationship Specialty Start Date End Date Giovanni Salinas II, MD [address] [place] [address] PCP - General Internal Medicine 11/29/19 César Leiva MD [address] [place] [address] Endocrinology 05/08/20 Josephine Salomon RN [address] [facility] [place] [address] Specialty Shear Operator Hematology/Oncology 03/04/22 Grace Bess MD 417 [facility] [place] [address] Physician Hematology/Oncology 03/04/22 Greta Wetzel PA-C [address] [place] [address] [place] [address] Physician Silk Screener Hematology/Oncology 03/04/[address] [place] [address] [place] [address] Registered Dietitian Nutrition 06/07/23 Pbx Wire Chief Relationship Specialty Start Date End Date Giovanni Salinas II, MD [address] [facility] 110 [place] [address] PCP - General Internal Medicine 11/29/19 César Leiva MD [facility] [facility] [place] [address] Endocrinology 05/08/20 Josephine Salomon RN [address] [facility] [place] [address] Specialty Shear Operator Hematology/Oncology 03/04/22 Grace Bess MD 417 [facility] [place] [address] Physician Hematology/Oncology 03/04/22 Greta Wetzel PA-C [address] [place] [address] [place] [address] Physician Silk Screener Hematology/Oncology 03/04/[address] [facility] [place] [address] Registered Dietitian Nutrition 06/07/23 Pbx Wire Chief Relationship Specialty Start Date End Date Giovanni Salinas II, MD [address]aci [facility] [address] [place] [address] PCP - General Internal Medicine 11/29/19 César Leiva MD [address] [place] [address] Endocrinology 05/08/20 Josephine Salomon RN [address] [facility] [place] [address] Specialty Shear Operator Hematology/Oncology 03/04/22 Grace Bess MD [address] [place] [address] [place] [address] Physician Hematology/Oncology 03/04/22 Greta Wetzel, ALEX [address] [facility] [place] [address] Physician Silk Screener Hematology/Oncology 03/04/[address] [facility] [place] [address] Registered Dietitian Nutrition 06/07/23 Pbx Wire Chief Relationship Specialty Start Date End Date Giovanni Salinas II, MD [address] [facility] [address] [place] [address] PCP - General Internal Medicine 11/29/19 César Leiva MD [address] [place] [address] Endocrinology 05/08/20 Josephine Salomon RN [address] [facility] [place] [address] Specialty Shear Operator Hematology/Oncology 03/04/22 Grace Bess MD [address] [facility] [place] [address] Physician Hematology/Oncology 03/04/22 Greta Wetzel PA-C [address] [place] [address] [place] [address] Physician Silk Screener Hematology/Oncology 03/04/[address] [place] [address] [place] [address] Registered Dietitian Nutrition 06/07/23 Pbx Wire Chief Relationship Specialty Start Date End Date Giovanni Salinas II, MD 135[address] [facility] [address] [place] [address] PCP - General Internal Medicine 11/29/19 César Leiva MD [address] [place] [address] Endocrinology 05/08/20 Josephine Salomon RN [address] [facility] [place] [address] Specialty Shear Operator Hematology/Oncology 03/04/22 Grace Bess MD [address] [facility] [place], [place] [address]1570 Physician Hematology/Oncology 03/04/22 Greta Wetzel PA-C [address] [place] [address] [place] [address] Physician Silk Screener Hematology/Oncology 03/04/[address] [facility] [place] [address] Registered Dietitian Nutrition 06/07/23 Pbx Wire Chief Relationship Specialty Start Date End Date Giovanni Salinas II, MD [address] [facility] [address] [place] [address] PCP - General Internal Medicine 11/29/19 César Leiva MD [address]19 [facility] [address] [place] [address] Endocrinology 05/08/20 Josephine Salomon RN [address] [facility] [address] [place] 3444170 Specialty Shear Operator Hematology/Oncology 03/04/22 Grace Bess MD [address] [place] [address] [place] [address] Physician Hematology/Oncology 03/04/22 Greta Wetzel PA-C [address] [place] [address] [place] [address] Physician Silk Screener Hematology/Oncology 03/04/[address] [facility] [place] [address] Registered Dietitian Nutrition 06/07/23 Pbx Wire Chief Relationship Specialty Start Date End Date Giovanni Salinas II, MD [address] [facility] [address] [place] [address] PCP - General Internal Medicine 11/29/19 César Leiva MD [address] [place] [id number] Endocrinology 05/08/20 Josephine Salomon RN [address] [facility] [place] [address] Specialty Shear Operator Hematology/Oncology 03/04/22 Grace Bess MD [address] [place] [address] [place] [address] Physician Hematology/Oncology 03/04/22 Greta Wetzel PA-C [address] [place] [address] [place] [address] Physician Silk Screener Hematology/Oncology 03/04/[address] [place] [address] [place] [address] Registered Dietitian Nutrition 06/07/23 Pbx Wire Chief Relationship Specialty Start Date End Date Giovanni Salinas II, MD [address] [address] PCP - General Internal Medicine 11/29/19 César Leiva MD [address] [place] [address] Endocrinology 05/08/20 Josephine Salomon RN [address] [facility] [place] [address] Specialty Shear Operator Hematology/Oncology 03/04/22 Grace Bess MD [address] [place] [address] [place] [address] Physician Hematology/Oncology 03/04/22 Greta Wetzel PA-C [address] [place] [address] [place] [address] Physician Silk Screener Hematology/Oncology 03/04/[address] [place] [address] [place] [address] Registered Dietitian Nutrition 06/07/23 Pbx Wire Chief Relationship Specialty Start Date End Date Giovanni Salinas II, MD [address] [place] [address] PCP - General Internal Medicine 11/29/19 Cés[place] [address] [place] [address] [address] [place] [address] Endocrinology 05/08/20 Josephine Salomon, RN [address] [facility] [address] [place] Specialty Shear Operator Hematology/Oncology 03/04/22 Grace Bess MD [address] [place] [address] [place] [address] Physician Hematology/Oncology 03/04/22 Greta Wetzel, LEONC [address] [place] [address] [place] [address] Physician Silk Screener Hematology/Oncology 03/04/[address] [facility] [place] [address] Registered Dietitian Nutrition 06/07/23 Pbx Wire Chief Relationship Specialty Start Date End Date Giovanni Salinas II, MD [address] [place] [address] PCP - General Internal Medicine 11/29/19 César Leiva MD [address] [place] [address] Endocrinology 05/08/20 Josephine Salomon, RN [address] [facility] [place] [address] Specialty Shear Operator Hematology/Oncology 03/04/22 Grace Bess MD [address] [place] [address] [place] [address] Physician Hematology/Oncology 03/04/22 Greta Wetzel PA-C [address] [place] [address] [place] [address] Physician Silk Screener Hematology/Oncology 03/04/[address] [place] [address] [place] [address] Registered Dietitian Nutrition 06/07/23 Pbx Wire Chief Relationship Specialty Start Date End Date Giovanni Salinas II, MD [address] [address] PCP - General Internal Medicine 11/29/19 César Leiva MD [address] [place] [address] Endocrinology 05/08/20 Josephine Salomon, RN [address] [facility] [place] [address] Specialty Shear Operator Hematology/Oncology 03/04/22 Grace Bess MD [address] [place] [address] [place] [address] Physician Hematology/Oncology 03/04/22 Greta Wetzel PA-C [address] [place] [address] [place] [address] Physician Silk Screener Hematology/Oncology 03/04/[address] [place] [address] [place] [address] Registered Dietitian Nutrition 06/07/23 Pbx Wire Chief Relationship Specialty Start Date End Date Giovanni Salinas II, MD [address] [facility] [address] [place] [address] PCP - General Internal Medicine 11/29/19 Cés[place] [address] [place] [address] [address] [place] [address] Endocrinology 05/08/20 Josephine Salomon RN [address] [facility] [place] [address] Specialty Shear Operator Hematology/Oncology 03/04/22 Grace Bess MD [address] [place] [address] [place] [address] Physician Hematology/Oncology 03/04/22 Greta Wetzel PA-C [address] [place] [address] [place] [address] Physician Silk Screener Hematology/Oncology 03/04/[address] [facility] [place] [address] Registered Dietitian Nutrition 06/07/23 Pbx Wire Chief Relationship Specialty Start Date End Date Giovanni Salinas II, MD [address] [facility] [address] [place] [address] PCP - General Internal Medicine 11/29/19 César Leiva MD [address] [place] [address] Endocrinology 05/08/20 Josephine Salomon, RN [address] [facility] [place] [address] Specialty Shear Operator Hematology/Oncology 03/04/22 Grace Bess MD [address] [place] [address] [place] [address] Physician Hematology/Oncology 03/04/22 Greta Wetzel PA-C [address] [place] [address] [place] [address] Physician Silk Screener Hematology/Oncology 03/04/[address] [place] [address] [place] [address] Registered Dietitian Nutrition 06/07/23 Pbx Wire Chief Relationship Specialty Start Date End Date Giovanni Salinas II, MD 1351 [facility] [address] [place] [address] PCP - General Internal Medicine 11/29/19 César Leiva MD [address] [place] [address] Endocrinology 05/08/20 Josephine Salomon, RN [address] [facility] [place] [address] Specialty Shear Operator Hematology/Oncology 03/04/22 Grace Bess MD [address] [place] [address] [place] [address] Physician Hematology/Oncology 03/04/22 Greta Wetzel PA-C [address] [facility] [place] [address] Physician Silk Screener Hematology/Oncology 03/04/[address] [facility] [place] [address] Registered Dietitian Nutrition 06/07/23 Pbx Wire Chief Relationship Specialty Start Date End Date Giovanni Salinas II, MD [address] [place] [address] PCP - General Internal Medicine 11/29/19 César Leiva MD [address]19 [facility] [address] [place] [address] Endocrinology 05/08/20 Josephine Salomon, RN [address] [facility] [place] [address] Specialty Shear Operator Hematology/Oncology 03/04/22 Grace Bess MD 417 [facility] [place] [address] Physician Hematology/Oncology 03/04/22 Greta Wetzel PA-C [address] [place] [address] [place] [address] Physician Silk Screener Hematology/Oncology 03/04/[address] [facility] [place] [address] Registered Dietitian Nutrition 06/07/23 Pbx Wire Chief Relationship Specialty Start Date End Date Giovanni Salinas II, MD [address] [place] [address] PCP - General Internal Medicine 11/29/19 César Leiva MD [address] [place] [address] Endocrinology 05/08/20 Josephine Salomon, LUIS ANTONIO [address] [facility] [place] [address] Specialty Shear Operator Hematology/Oncology 03/04/22 Greta Wetzel PA-C [address] [place] [address] [place] [address] Physician Silk Screener Hematology/Oncology 03/04/[address] [place] [address] [place] [address] Registered Dietitian Nutrition 06/07/23 Vivek Smith MD [address] [place] [address] [place] [address] Physician Hematology 12/11/23 Pbx Wire Chief Relationship Specialty Start Date End Date Giovanni Salinas II, MD [address] [facility] [address] [place] [address] PCP - General Internal Medicine 11/29/19 César Leiva MD [address] [place] [address] Endocrinology 05/08/20 Josephine Salomon, LUIS ANTONIO [address] [facility] [place] [address] Specialty Shear Operator Hematology/Oncology 03/04/22 Greta Wetzel PA-C [address] [place] [address] [place] [address] Physician Silk Screener Hematology/Oncology 03/04/[address] [facility] [place] [address] Registered Dietitian Nutrition 06/07/23 Vivek Smith MD [address] [place] [address] [place] [address] Physician Hematology 12/11/23 Pbx Wire Chief Relationship Specialty Start Date End Date Giovanni Salinas II, MD [address] [place] [address] PCP - General Internal Medicine 11/29/19 César Leiva MD [address] [place] [address] [address] [place] [address] Endocrinology 05/08/20 Josephine Salomon, RN [address] [facility] [place] [address] Specialty Shear Operator Hematology/Oncology 03/04/22 Greta Wetzel, PA-C [address] [place] [address] [place] [address] Physician Silk Screener Hematology/Oncology 03/04/[address] [facility] [place] [address] Registered Dietitian Nutrition 06/07/23 Vivek Smith MD [address] [facility] [place] [address] Physician Hematology 12/11/23 Pbx Wire Chief Relationship Specialty Start Date End Date Giovanni Salinas II, MD [address] [place] [address] PCP - General Internal Medicine 11/29/19 César Leiva MD [address] [place] [address] Endocrinology 05/08/20 Josephine Salomon RN [address] [facility] [place] [address] Specialty Shear Operator Hematology/Oncology 03/04/22 Greta Wetzel PA-C [address] [place] [address] [place] [address] Physician Silk Screener Hematology/Oncology 03/04/[address] [place] [address] [place] [address] Registered Dietitian Nutrition 06/07/23 Vivek Smith MD [address] [place] [address] [place] [address] Physician Hematology 12/11/23 Pbx Wire Chief Relationship Specialty Start Date End Date Giovanni Salinas II, MD [address] [facility] [address] [place] [address] PCP - General Internal Medicine 11/29/19 César Leiva MD [address] [place] [address] Endocrinology 05/08/20 Josephine Salomon RN [address] [facility] [place] [address] Specialty Shear Operator Hematology/Oncology 03/04/22 Greta Wetzel PA-C [address] [place] [address] [place] [address] Physician Silk Screener Hematology/Oncology 03/04/[address] [facility] [place] [address] Registered Dietitian Nutrition 06/07/23 Vivek Smith MD [address] [place] [address] [place] [address] Physician Hematology 12/11/23 Pbx Wire Chief Relationship Specialty Start Date End Date Giovanni Salinas II, MD [address] [place] [address] PCP - General Internal Medicine 11/29/[address] [facility] [address] [place] [address] Endocrinology 05/08/20 Josephine Salomon RN [address] [facility] [place] [address] Specialty Shear Operator Hematology/Oncology 03/04/22 Greta Wetzel PALaurenC [address] [place] [address] [place] [address] Physician Silk Screener Hematology/Oncology 03/04/[address] [facility] [place] [address] Registered Dietitian Nutrition 06/07/23 Vivek Smith MD [address] [facility] [place] [address] Physician Hematology 12/11/23 Pbx Wire Chief Relationship Specialty Start Date End Date Giovanni Salinas II, MD [address] [place] [address] PCP - General Internal Medicine 11/29/19 César Leiva MD [address] [place] [address] Endocrinology 05/08/20 Josephine Salomon, RN [address] [facility] [place] [address] Specialty Shear Operator Hematology/Oncology 03/04/22 Greta Wetzel PA-C [address] [place] [address] [place] [address] Physician Silk Screener Hematology/Oncology 03/04/[address] [place] [address] [place] [address] Registered Dietitian Nutrition 06/07/23 Vivek Smith MD [address] [place] [address] [place] [address] Physician Hematology 12/11/23 Pbx Wire Chief Relationship Specialty Start Date End Date Giovanni Salinas II, MD [address] [address] PCP - General Internal Medicine 11/29/19 César Leiva MD [address] [place] [address] Endocrinology 05/08/20 Josephine Salomon, RN [address] [facility] [place] [address] Specialty Shear Operator Hematology/Oncology 03/04/22 Greta Wetzel PA-C [address] [place] [address] [place] [address] Physician Silk Screener Hematology/Oncology 03/04/[address] [facility] [place] [address] Registered Dietitian Nutrition 06/07/23 Vivek Smith MD [address] [place] [address] [place] [address] Physician Hematology 12/11/23 Pbx Wire Chief Relationship Specialty Start Date End Date Giovanni Salinas II, MD [address] [place] [address] PCP - General Internal Medicine 11/29/19 César Leiva MD [address] [place] [address] [address] [place] [address] Endocrinology 05/08/20 Josephine Salomon RN [address] [facility] [place] [address] Specialty Shear Operator Hematology/Oncology 03/04/22 Greta Wetzel PALaurenC [address] [place] [address] [place] [address] Physician Silk Screener Hematology/Oncology 03/04/[address] [facility] [place] [address] Registered Dietitian Nutrition 06/07/23 Vivek Smith MD [address] [facility] [place] [address] Physician Hematology 12/11/23 Pbx Wire Chief Relationship Specialty Start Date End Date Giovanni Salinas II, MD [address] [place] [address] PCP - General Internal Medicine 11/29/19 César Leiva MD [address] [place] [address] Endocrinology 05/08/20 Josephine Salomon, RN [address] [facility] [place] [address] Specialty Shear Operator Hematology/Oncology 03/04/22 Greta Wetzel PA-C [address] [facility] [place] [address] Physician Silk Screener Hematology/Oncology 03/04/[address] [facility] [place] [address] Registered Dietitian Nutrition 06/07/23 Vivek Smith MD [address] [facility] [place] [address] Physician Hematology 12/11/23 Pbx Wire Chief Relationship Specialty Start Date End Date Giovanni Salinas II, MD [address] [facility] [address] [place] [address] PCP - General Internal Medicine 11/29/19 César Leiva MD [address] [place] [address] Endocrinology 05/08/20 Josephine Salomon, LUIS ANTONIO [address] [facility] [place] [address] Specialty Shear Operator Hematology/Oncology 03/04/22 Greta Wetzel PA-C [address] [facility] [place] [address] Physician Silk Screener Hematology/Oncology 03/04/[address] [facility] [place] [address] Registered Dietitian Nutrition 06/07/23 Vivek Smith MD [address] [facility] [place] [address] Physician Hematology 12/11/23 Pbx Wire Chief Relationship Specialty Start Date End Date Giovanni Salinas II, MD [address] [place] [address] PCP - General Internal Medicine 11/29/19 César Leiva MD [address] [facility] [address] [place] [address] Endocrinology 05/08/20 Josephine Salomon RN [address] [facility] [place] [address] Specialty Shear Operator Hematology/Oncology 03/04/22 Greta Wetzel PALaurenC [address] [facility] [place] [address] Physician Silk Screener Hematology/Oncology 03/04/[address] [facility] [place] [address] Registered Dietitian Nutrition 06/07/23 Vivek Smith MD [address] [facility] [place] [address] Physician Hematology 12/11/23 Pbx Wire Chief Relationship Specialty Start Date End Date Giovanni Salinas II, MD [address] [place] [address] PCP - General Internal Medicine 11/29/19 César Leiva MD [address] [place] [address] Endocrinology 05/08/20 Josephine Salomon, RN [address] [facility] [place] [address] Specialty Shear Operator Hematology/Oncology 03/04/22 Greta Wetzel PA-C [address] [place] [address] [place] [address] Physician Silk Screener Hematology/Oncology 03/04/[address] [place] [address] [place] [address] Registered Dietitian Nutrition 06/07/23 Vivek Smith MD [address] [place] [address] [place] [address] Physician Hematology 12/11/23 Pbx Wire Chief Relationship Specialty Start Date End Date Giovanni Salinas II, MD [address] [facility] [address] [place] [address] PCP - General Internal Medicine 11/29/19 César Leiva MD [address] [place] [address] Endocrinology 05/08/20 Josephine Salomon, RN [address] [facility] [place] [address] Specialty Shear Operator Hematology/Oncology 03/04/22 Grace Bess MD [address] [facility] [place] [address] Physician Hematology/Oncology 03/04/22 12/10/23 Greta Wetzel PA-C [address] [facility] [place] [address] Physician Silk Screener Hematology/Oncology 03/04/[address] [facility] [place] [address] Registered Dietitian Nutrition 06/07/23 Pbx Wire Chief Relationship Specialty Start Date End Date Giovanni Salinas II, MD [address] [facility] [address] [place] [address] PCP - General Internal Medicine 11/29/19 Cés[place] [address] [place] [address] [address] [place] [address] Endocrinology 05/08/20 Josephine Salomon RN [address] [facility] [place] [address] Specialty Shear Operator Hematology/Oncology 03/04/22 Grace Bess MD [address] [place] [address] [place] [address] Physician Hematology/Oncology 03/04/22 12/10/23 Greta Wetzel PA-C [address] [place] [address] [place] [address] Physician Silk Screener Hematology/Oncology 03/04/[address] [facility] [place] [address] Registered Dietitian Nutrition 06/07/23 Pbx Wire Chief Relationship Specialty Start Date End Date Giovanni Salinas II, MD [address] [facility] [address] [place] [address] PCP - General Internal Medicine 11/29/19 César Leiva MD [address] [place] [address] Endocrinology 05/08/20 Josephine Salomon, RN [address] [facility] [place] [address] Specialty Shear Operator Hematology/Oncology 03/04/22 Grace Bess MD [address] [place] [address] [place] [address] Physician Hematology/Oncology 03/04/22 12/10/23 Greta Wetzel PA-C [address] [place] [address] [place] [address] Physician Silk Screener Hematology/Oncology 03/04/[address] [place] [address] [place] [address] Registered Dietitian Nutrition 06/07/23 Pbx Wire Chief Relationship Specialty Start Date End Date Giovanni Salinas II, MD [address] [facility] [address] [place] [address] PCP - General Internal Medicine 11/29/19 César Leiva MD [address] [place] [address] Endocrinology 05/08/20 Josephine Salomon, RN [address] [facility] [place] [address] Specialty Shear Operator Hematology/Oncology 03/04/22 Grace Bess MD [address] [place] [address] [place] [address] Physician Hematology/Oncology 03/04/22 12/10/23 Greta Wetzel PA-C [address] [facility] [place] [address] Physician Silk Screener Hematology/Oncology 03/04/22 Pbx Wire Chief Relationship Specialty Start Date End Date Giovanni Salinas II, MD [address] [facility] [address] [place] [address] PCP - General Internal Medicine 11/29/19 César Leiva MD [address] [place] [address] Endocrinology 05/08/20 Josephine Salomon RN [address] [facility] [place] [address] Specialty Shear Operator Hematology/Oncology 03/04/22 Grace Bess MD [address] [facility] [place] [address] Physician Hematology/Oncology 03/04/22 12/10/23 Greta Wetzel PA-C [address] [facility] [place] [address] Physician Silk Screener Hematology/Oncology 03/04/22 Pbx Wire Chief Relationship Specialty Start Date End Date Giovanni Salinas II, MD [address] [place] [address] PCP - General Internal Medicine 11/29/19 César Leiva MD [address] [place] [address] Endocrinology 05/08/20 Josephine Salomon RN [address] [facility] [place] [address] Specialty Shear Operator Hematology/Oncology 03/04/22 Grace Bess MD [address] [facility] [place] [address] Physician Hematology/Oncology 03/04/22 12/10/23 Greta Wetzel PA-C [address] [facility] [place] [address] Physician Silk Screener Hematology/Oncology 03/04/22 Pbx Wire Chief Relationship Specialty Start Date End Date Giovanni Salinas II, MD [address] [facility] [address] [place] [address] PCP - General Internal Medicine 11/29/[address] [facility] [address] [place] [address] Endocrinology 05/08/20 Josephine Salomon RN [address] [facility] [place] [address] Specialty Shear Operator Hematology/Oncology 03/04/22 Grace Bess MD [address] [facility] [place] [address] Physician Hematology/Oncology 03/04/22 12/10/23 Greta Wetzel PA-C [address] [facility] [place] [address] Physician Silk Screener Hematology/Oncology 03/04/22 Pbx Wire Chief Relationship Specialty Start Date End Date Giovanni Salinas II, MD [address] [facility] [address] [place] [address] PCP - General Internal Medicine 11/29/19 César Leiva MD [address] [place] [address] Endocrinology 05/08/20 Josephine Salomon, LUIS ANTONIO [address] [facility] [place] [address] Specialty Shear Operator Hematology/Oncology 03/04/22 Greta Wetzel PA-C [address] [facility] [place] [address] Physician Silk Screener Hematology/Oncology 03/04/[address] [facility] [place] [address] Registered Dietitian Nutrition 06/07/23 Vivek Smith MD [address] [place] [address] [place] [address] Physician Hematology 12/11/23 Pbx Wire Chief Relationship Specialty Start Date End Date Giovanni Salinas II, MD [address] [facility] [address] [place] [address] PCP - General Internal Medicine 11/29/19 César Leiva MD [address] [place] [address] Endocrinology 05/08/20 Josephine Salomon, LUIS ANTONIO [address] [facility] [place] [address] Specialty Shear Operator Hematology/Oncology 03/04/22 Grace Bess MD [address] [facility] [place] [address] Physician Hematology/Oncology 03/04/22 12/10/23 Greta Wetzel PA-C [address] [place] [address] [place] [address] Physician Silk Screener Hematology/Oncology 03/04/22 Pbx Wire Chief Relationship Specialty Start Date End Date Giovanni Salinas II, MD [address] [facility] [address] [place] [address] PCP - General Internal Medicine 11/29/19 César Leiva MD [address] [place] [address] Endocrinology 05/08/20 Pbx Wire Chief Relationship Specialty Start Date End Date Giovanni Salinas MD [address] [place] [address] PCP - General Internal Medicine 10/20/22 Giovanni Salinas MD [address] [place] [address] PCP - ACO Reach 09/20/23Monday, JAUN Wilson [address] [place] [address] Licensed Practical Nurse Family Medicine 11/02/23 Pbx Wire Chief Relationship Specialty Start Date End Date Giovanni Salinas II, MD [address] [place] [address] PCP - General Internal Medicine 11/29/19 César Leiva MD [address] [place] [address] Endocrinology 05/08/20 Josephine Salomon RN [address] [facility] [place] [address] Specialty Shear Operator Hematology/Oncology 03/04/22 Greta Wetzel PA-C [address] [facility] [place] [address] Physician Silk Screener Hematology/Oncology 03/04/[address] [place] [address] [place] [address] Registered Dietitian Nutrition 06/07/23 Vivek Smith MD [address] [place] [address] [place], [place] [address]70 Physician Hematology 12/11/23 Pbx Wire Chief Relationship Specialty Start Date End Date Giovanni Salinas II, MD [address] [facility] [address] [place] [address] PCP - General Internal Medicine 11/29/19 César Leiva MD [address] [facility] [address] [place] [address] Endocrinology 05/08/20 Josephine Salomon RN [address] [facility] [place] [address] Specialty Shear Operator Hematology/Oncology 03/04/22 Greta Wetzel PA-C [address] [facility] [place] [address] Physician Silk Screener Hematology/Oncology 03/04/[address] [place] [address] [place] [address] Registered Dietitian Nutrition 06/07/23 Vivek Smith MD [address] [place] [address] [place] [address] Physician Hematology 12/11/23 Pbx Wire Chief Relationship Specialty Start Date End Date Giovanni Salinas II, MD [address] [place] [address] PCP - General Internal Medicine 11/29/19 César Leiva MD [address] [place] [address] Endocrinology 05/08/20 Josephine Salomon, RN [address] [place] [address] [place] [address] Specialty Shear Operator Hematology/Oncology 03/04/22 Greta Wetzel, PA-C [address] [place] [address] [place] [address] Physician Silk Screener Hematology/Oncology 03/04/[address] [place] [address] [place] [address] Registered Dietitian Nutrition 06/07/23 Vivek Smith MD [address] [place] [address] [place] [address] Physician Hematology 12/11/23 Goals (unrecognized section and content) Goals may [...] 1 dose, On Mon08/02/23 at 1200, EXP: 119908/09/23 Hazardous Chemotherapy Drug: Use appropriate PPE. Protect [...] not run concurrently with liposomal irinotecan. EXP 0400 08/04/23 REFRIGERATE New Bag/Syringe/Bottle 08/02/2023 1:42 PM EDT [...] BE BASED ON THE PRIMARY CLINICAL RECORDS. [employer] provides no warranty or guarantee of the accuracy or completeness of information in this document.
[2024-03-24 22:19] LABS: Glucometer 163 mg/dL (74-106)
--- NOTE | 2024-03-24 22:26 | XR_ITS ---
The [address] [address] Patient Name: TRINITY PERRY MRN: [id number] date: 1950 Sex: M Assigned Patient Location: ER Current Patient Location: ER Accession/Order Number: [id number] Exam Date: 03/24/2024 22:40 Report Date: 03/24/2024 23:54 At the request of: BALWINDER MARKER Procedure: XR chest 1V CXR HISTORY: Shortness of breath COMPARISON: 10/16/2023 CXR TECHNIQUE: 1 view chest submitted for review. FINDINGS: Port-A-Cath is seen with tip overlying the cavoatrial junction. The lungs are adequately expanded without effusion. Air space opacity in the LLL. The cardiac silhouette measures within normal. Pulmonary vascularity is unremarkable. Osseous structures do not demonstrate any acute abnormality. XR/XR chest 1V IMPRESSION: Air space opacity in the LLL. Please correlate for pneumonia vs atelectasis. Short term follow up to ensure resolution. Electronically authenticated by: ERIN REYNOSO Date: 03/24/2024 23:54
--- NOTE | 2024-03-24 22:26 | ECG_ITS ---
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
[2024-03-24 22:29] VITALS: TEMP 39.3
--- NOTE | 2024-03-24 22:32 | ED.GENADUL1 ---
HPI HPI - General Adult General Chief complaint: Fever Stated complaint: fever Time Seen by Provider: 03/24/24 21:57 Source: patient Mode of arrival: ambulance Limitations: no limitations History of Present Illness HPI narrative: This 73-year-old male who is undergoing chemotherapy for pancreatic cancer and who had a Whipple procedure several years ago presents for evaluation of fever and generalized weakness. He has not had his temperature taken today but did have 2 Tylenol yesterday because he was having chills. He states he feels very weak. He denies any chest pain or shortness of breath. He does not have a sore throat or cough. He denies any abdominal pain nausea or vomiting. He did have some diarrhea yesterday. He denies any urinary symptoms. He states he has been eating and drinking although not much. He denies any recent weight loss. He denies any back pain. His last chemotherapy treatment was approximately 2 weeks ago, his confirms that it was on 03/05/24. He was noted to have a low-grade temperature of 99.9 at triage but a rectal temperature confirmed that he had a fever with a temperature of 102. Related Data Home Medications ?Medication ?Instructions ?Recorded ?Confirmed finasteride 5 mg tablet 5 mg PO QAM 10/16/23 12/01/23 pantoprazole 20 mg tablet,delayed 20 mg PO DAILY 10/16/23 12/01/23 release tamsulosin 0.4 mg capsule 0.4 mg PO DAILY 10/16/23 12/01/23 cephalexin 500 mg capsule 500 mg PO TID 12/01/23 12/01/23 Previous Rx's ?Medication ?Instructions ?Recorded midodrine 2.5 mg tablet 2.5 mg PO TIDWMEAL #90 tabs 10/18/23 Allergies Allergy/AdvReac Type Severity Reaction Status Date / Time No Known Drug Allergies Allergy Verified 03/24/24 22:02 Opioid HPI Opioid Management Most Recent Opioid Data: Last Pain Assessment 03/25/24 02:20 Last ORT Total Score 0 03/25/24 01:13 03/25/24 Last ORT Risk Category Low Risk 03/25/24 01:13 03/25/24 Review of Systems ROS Narrative Vital signs and Nursing Notes reviewed: Patient is febrile with a normal pulse, normal blood pressure, he is not hypoxic with pulse ox of 95% on room air General: Awake, alert, oriented, nontoxic male, no respiratory distress, GCS 15 HEENT: Normocephalic atraumatic, mucous membranes are slightly dry, no oral vesicles or sloughing noted, eyes are clear, normal conjunctiva, vision is grossly intact, posterior pharynx is normal in appearance. Neck: Supple, no meningeal signs, no anterior or posterior cervical lymphadenopathy Chest: Lungs are clear to auscultation with good air entry, there is no wheezing rhonchi or rales appreciated no accessory muscle use, patient is speaking in complete sentences-no chest wall tenderness to palpation CVS: Regular rate and rhythm S1-S2, no murmurs rubs or gallops, pulses are brisk and equal bilaterally ABD: Soft, nondistended, nontender, no rebound guarding or rigidity, bowel sounds are normal, no pulsatile masses appreciated, healed abdominal incisions Extremities: Moving all extremities, no lower extremity tenderness or swelling noted, negative Homans' sign, pulses are brisk and equal bilaterally Skin: Normal in appearance without rash,pallor, petechiae or purpura Neuro: No focal deficits, patient appears weak but 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 intact, he is able to pull himself to a sitting position, no facial droop, upper and lower extremity strength and sensation is intact [facility] Medical History (Updated 03/25/24 @ 02:37 by Mayelin Restrepo MD) BPH (benign prostatic hyperplasia) ?N40.0 - Benign prostatic hyperplasia without lower urinary tract symptoms (ICD-10) GERD (gastroesophageal reflux disease) ?K21.9 - Gastro-esophageal reflux disease without esophagitis (ICD-10) Pancreatic cancer ?C25.9 - Malignant neoplasm of pancreas, unspecified (ICD-10) Diabetes ?E11.9 - Type 2 diabetes mellitus without complications (ICD-10) Surgical History (Updated 12/01/23 @ 09:37 by Allie Pat) Port-A-Cath in place ?Z95.828 - Presence of other vascular implants and grafts (ICD-10) 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 Smoking status: Former smoker Non-prescribed substance use: denies use Previous occupational history: Retired, [employer] Highest level of school completed/degree received: high school graduate Are you now , , , , never or living with a partner: In a typical week, how many times do you talk on the telephone with family, friends, or neighbors: 3 or more times per week How often do you get together with friends or relatives: 3 or more times per week Little interest or pleasure in doing things: not at all Feeling down, depressed, or hopeless: not at all Feel stressed/tense/nervous/anxious/difficulty sleeping: not at all Exam Constitutional Vital Signs, click to edit/add: Last Vital Signs Temp 98.3 F 03/25/24 01:08 Pulse 71 03/25/24 01:14 Resp 16 03/25/24 01:14 BP 100/62 03/25/24 01:08 Pulse Ox 96 03/25/24 01:14 O2 Del Method Room Air 03/25/24 01:14 Course Vital Signs Vital signs: Vital Signs Temperature 99.9 F 03/24/24 21:58 Pulse Rate 86 03/24/24 21:58 Respiratory Rate 16 03/24/24 21:58 Blood Pressure 115/67 03/24/24 21:58 Pulse Oximetry 95 03/24/24 21:58 Oxygen Delivery Method Room Air 03/24/24 21:58 Temperature 98.3 F 03/25/24 01:08 Pulse Rate 71 03/25/24 01:14 Respiratory Rate 16 03/25/24 01:14 Blood Pressure 100/62 03/25/24 01:08 Pulse Oximetry 96 03/25/24 01:14 Oxygen Delivery Method Room Air 03/25/24 01:14 Medical Decision Making MDM Narrative Medical decision making narrative: This 73-year-old male with a history of pancreatic cancer who has had a Whipple procedure and gets chemotherapy every 3 weeks presents for evaluation of a fever and generalized weakness. The patient last had chemotherapy on March 05. He states he always gets wiped out after having chemotherapy but he does not typically get a fever. He has had chills and generalized weakness for the past 48 hours. He had Tylenol yesterday but none today. He denies any chest pain or shortness of breath. He has no headache neck pain or stiffness. He has no skin rash. He denies any abdominal pain nausea or vomiting. He did have some diarrhea yesterday. He denies any urinary symptoms or flank pain. Rectal temperature was done at triage that was 1-2.7. The remainder of his vital signs are stable. He is not hypoxic. Septic workup was ordered including CBC with differential, comprehensive metabolic profile, influenza and COVID testing, 2 sets of blood cultures and lactic acid. His white count today is 6.6 and hemoglobin is stable at 11. He has a normal platelet count. Electrolytes are normal the exception of a sodium of 129. He has had hyponatremia in the past that responded to IV hydration. It is thought that this is related to his cancer and chemotherapy. COVID and influenza testing is negative. He does have a mild elevation in his liver function test which have been noted in the past. His lactic acid is normal at 2. Blood cultures are pending. Chest x-ray was reviewed by radiology and shows a left lower lobe infiltrate. He was medicated with Tylenol, IV fluids and IV Zosyn. Urine is pending at the time of this dictation but likely not the etiology of his symptoms. Medical Records Medical records reviewed: Yes I reviewed the patient's medical records Medical records narrative: The [address] [address] XRay Report Signed Patient: TRINITY EPRRY MR#: [id number] : 1950 Acct:[id number] Age/Sex: 73 / M ADM Date: 03/24/24 Loc: ER Attending Dr: Ordering Physician: Mayelin Restrepo Date of Service: 03/24/24 Procedure(s): XR chest 1V Accession Number(s): [id number] cc: CRUZITO [facility] ; Mayelin Restrepo~ The [address] [address] Patient Name: TRINITY PERRY MRN: [id number] date: 1950 Sex: M Assigned Patient Location: ER Current Patient Location: ER Accession/Order Number: [id number] Exam Date: 03/24/2024 22:40 Report Date: 03/24/2024 23:54 At the request of: MAYELIN RESTREPO Procedure: XR chest 1V CXR HISTORY: Shortness of breath COMPARISON: 10/16/2023 CXR TECHNIQUE: 1 view chest submitted for review. FINDINGS: Port-A-Cath is seen with tip overlying the cavoatrial junction. The lungs are adequately expanded without effusion. Air space opacity in the LLL. The cardiac silhouette measures within normal. Pulmonary vascularity is unremarkable. Osseous structures do not demonstrate any acute abnormality. XR/XR chest 1V IMPRESSION: Air space opacity in the LLL. Please correlate for pneumonia vs atelectasis. Short term follow up to ensure resolution. Electronically authenticated by: ERIN REYNOSO Date: 03/24/2024 23:54 Lab Data Lab results reviewed: Yes I reviewed the patient's lab results Labs: Lab Results 03/24/24 03/24/24 03/24/24 Range/Units 22:05 22:17 22:40 WBC 6.6 (4.0-11.0) 10^3/uL RBC 3.64 L (4.70-6.10) 10^6/uL Hgb 11.0 L (14.0-18.0) g/dL Hct 33.1 L (42.0-54.0) % MCV 90.9 (80.0-94.0) fL MCH 30.2 (25.9-34.0) pg MCHC 33.2 (29.9-35.2) g/dL RDW 15.8 H (11.0-15.0) % Plt Count 236 (150-450) 10^3/uL MPV 9.6 (9.5-13.5) fL Seg Neuts % (Manual) 77.0 H (43.0-75.0) Lymphocytes % (Manual) 6.0 L (20.5-60.0) % Atypical Lymphs % (Man) 8.0 % Monocytes % (Manual) 9.0 (1.7-12.0) % Eosinophils % (Manual) 0.0 L (0.9-7.0) % Basophils % (Manual) 0.0 L (0.2-2.0) % Neutrophils # (Manual) 5.08 (1.4-6.5) 10^3/uL Lymphocytes # (Manual) 0.39 L (1.20-3.80) 10^3/uL Abs Atypical Lymphs Man 0.52 Monocytes # (Manual) 0.59 (0.30-0.80) 10^3/uL Eosinophils # (Manual) 0.00 (0.00-0.70) 10^3/uL Basophils # (Manual) 0.00 (0.00-0.10) 10^3/uL Hypochromasia 3+ Sodium 129 L (136-145) mmol/L Potassium 4.1 (3.5-5.1) mmol/L Chloride 96 L (98-107) mmol/L Carbon Dioxide 22.8 (21.0-32.0) mmol/L Anion Gap 14.3 BUN 19.0 H (7.0-18.0) mg/dL Creatinine 1.13 (0.70-1.30) mg/dL Est GFR ( Amer) >60 (>=60 mL/min/1.73m^2) Est GFR (Non-Af Amer) >60 (>=60 mL/min/1.73m^2) BUN/Creatinine Ratio 16.8 Glucose 180 H (74-106) mg/dL Lactate 2.0 (0.4-2.0) mmol/L Calcium 10.2 H (8.5-10.1) mg/dL Total Bilirubin 0.9 (0.2-1.0) mg/dL AST 24 (15-37) U/L ALT 34 (16-63) U/L Alkaline Phosphatase 149 H (46-116) U/L Troponin I High Sens 7.0 (4.0-76.1) pg/mL Total Protein 6.3 L (6.4-8.2) g/dL Albumin 2.7 L (3.4-5.0) g/dL Globulin 3.6 g/dL Albumin/Globulin Ratio 0.8 Influenza Type A Ag Negative Influenza Type B Ag Negative SARS-CoV-2 Ag (CV2AG) (NEGATIVE) POC Glucose 163 H (74-106) mg/dL 03/24/24 Range/Units 23:05 WBC (4.0-11.0) 10^3/uL RBC (4.70-6.10) 10^6/uL Hgb (14.0-18.0) g/dL Hct (42.0-54.0) % MCV (80.0-94.0) fL MCH (25.9-34.0) pg MCHC (29.9-35.2) g/dL RDW (11.0-15.0) % Plt Count (150-450) 10^3/uL MPV (9.5-13.5) fL Seg Neuts % (Manual) (43.0-75.0) Lymphocytes % (Manual) (20.5-60.0) % Atypical Lymphs % (Man) % Monocytes % (Manual) (1.7-12.0) % Eosinophils % (Manual) (0.9-7.0) % Basophils % (Manual) (0.2-2.0) % Neutrophils # (Manual) (1.4-6.5) 10^3/uL Lymphocytes # (Manual) (1.20-3.80) 10^3/uL Abs Atypical Lymphs Man Monocytes # (Manual) (0.30-0.80) 10^3/uL Eosinophils # (Manual) (0.00-0.70) 10^3/uL Basophils # (Manual) (0.00-0.10) 10^3/uL Hypochromasia Sodium (136-145) mmol/L Potassium (3.5-5.1) mmol/L Chloride (98-107) mmol/L Carbon Dioxide (21.0-32.0) mmol/L Anion Gap BUN (7.0-18.0) mg/dL Creatinine (0.70-1.30) mg/dL Est GFR ( Amer) (>=60 mL/min/1.73m^2) Est GFR (Non-Af Amer) (>=60 mL/min/1.73m^2) BUN/Creatinine Ratio Glucose (74-106) mg/dL Lactate (0.4-2.0) mmol/L Calcium (8.5-10.1) mg/dL Total Bilirubin (0.2-1.0) mg/dL AST (15-37) U/L ALT (16-63) U/L Alkaline Phosphatase (46-116) U/L Troponin I High Sens (4.0-76.1) pg/mL Total Protein (6.4-8.2) g/dL Albumin (3.4-5.0) g/dL Globulin g/dL Albumin/Globulin Ratio Influenza Type A Ag Influenza Type B Ag SARS-CoV-2 Ag (CV2AG) Negative (NEGATIVE) POC Glucose (74-106) mg/dL ECG Data Attestation: I personally reviewed and interpreted this ECG as follows: (EKG interpretation sinus rhythm 85 bpm, left axis deviation, no acute ST segment elevation or T wave inversion) Discharge Plan Discharge Chief Complaint: Fever Clinical Impression: LLL pneumonia, Hyponatremia Patient Disposition: Admitted As Inpatient Time of Disposition Decision: 00:31 Discharge Date/Time: 03/25/24 00:50
[2024-03-24 22:33] LABS: Hematocrit 33.1 % (42.0-54.0); Mean Corpuscular HGB Conc 33.2 g/dL (29.9-35.2); Mean Corpuscular Hemoglobin 30.2 pg (25.9-34.0); Mean Corpuscular Volume 90.9 fL (80.0-94.0); Mean Platelet Volume 9.6 fL (9.5-13.5); Platelet Count 236 10^3/uL (150-450); Red Blood Count 3.64 10^6/uL (4.70-6.10); Red Cell Distribution Width 15.8 % (11.0-15.0); White Blood Count 6.6 10^3/uL (4.0-11.0)
[2024-03-24 22:48] LABS: Alanine Aminotransferase 34 U/L (16-63); Albumin Globulin Ratio 0.8; Albumin Level 2.7 g/dL (3.4-5.0); Alkaline Phosphatase 149 U/L (46-116); Anion Gap 14.3; Aspartate Amino Transferase 24 U/L (15-37); BUN Creatinine Ratio 16.8; Bilirubin Total 0.9 mg/dL (0.2-1.0); Calcium 10.2 mg/dL (8.5-10.1); Carbon Dioxide 22.8 mmol/L (21.0-32.0); Chloride 96 mmol/L (98-107); Estimated GFR (African America >60 (>=60 mL/min/1.73m^2); Estimated GFR (Non-African Ame >60 (>=60 mL/min/1.73m^2); Globulin 3.6 g/dL; Glucose 180 mg/dL (74-106); Potassium 4.1 mmol/L (3.5-5.1); Sodium 129 mmol/L (136-145); Total Protein 6.3 g/dL (6.4-8.2)
[2024-03-24 22:50] LABS: Atypical Lymphocytes Abs Man 0.52; Hypochromasia 3+; Lymphocytes Absolute Manual 0.39 10^3/uL (1.20-3.80); Monocytes Absolute Manual 0.59 10^3/uL (0.30-0.80); Segmented Neut Absolute Manual 5.08 10^3/uL (1.4-6.5)
[2024-03-24 22:54] LABS: Influenza Virus A Antigen Negative; Influenza Virus B Antigen Negative; Internal Control Within Normal Limits
[2024-03-24] MEDS: ACETAMINOPHEN 325 MG TABLET 650 MG PO (22:54)
[2024-03-24] MEDS: 0.9 % SODIUM CHLORIDE 1,000 ML 1000 ML IV (22:55)
[2024-03-24 23:42] LABS: Internal Control Within Normal Limits; SARS-CoV-2 Ag NEGATIVE (NEGATIVE)
[2024-03-25] VITALS (13 sets, daily range): BP systolic 68–151; BP diastolic 60–85; PULSE 55–83; TEMP 36.5–37.1; O2SAT 94–98; BMI 27.3
[2024-03-25] MEDS: PIPERACILLIN SODIUM/TAZOBACTAM 3.375 GM in 0.9 % SODIUM CHLORIDE 50 ML IV ×3 (00:27→16:36)
--- OUTSIDE RECORDS SUMMARY | 2024-03-25 01:01 | XMS_ITS | CCD ---
Author Organization [facility] Care Team Providers Care Life Enrichment Director Name Role Phone Giovanni Salinas Primary Care Provider [phone] FARA MONACO Referring Unavailable GIOVANNI SALINAS Primary Care Unavailable GIOVANNI SALINAS Primary Care Unavailable GILBERT FRANOC Referring Unavailable PRAVEEN ALVAREZ Admitting Unavailable BRAD, [...] GIOVANNI SALINAS II Primary Care Unavailable Giovanni Salians II Primary Care Provider Mehreen Leivamad Firas Unavailable Aime SALMON, Josephine Dykes Unavailable Grace Bess MD Unavailable Greta Wetzel PA-C Unavailable [phone] César Leiva MD F Unavailable [phone] MARIO Salinas Primary Care Provider [phone] DANIKA Padilla Emergency Provider [phone] Brad MARTIN MD, Daniel B Primary Care Provider [phone] Josephine Salomon RN Unavailable Ibis Buchanan RD Unavailable Giovanni Salinas MD Unavailable Giovanni Salinas MD Primary Care Provider Brad MARTIN MD, Daniel B Primary Care Provider GIOVANNI SALINAS Attending Unavailable GIOVANNI SALINAS Attending Unavailable Jemma Padilla Attending Unavailable Jemma Padilla Admitting Unavailable Giovanni Salinas Primary Care Unavailable Luis GODWIN, Vivek Jordan Unavailable [phone] KARUPPASAMY, KARUNAKARAVEL Admitting Unava ilable JYOTIMY, JHONNY Attending Unava ilable SALINAS II, GIOVANNI B Primary Care Unavailable Maria Alejandra GODWIN, Grace Unavailable [phone] Giovanni Salinas MD Unavailable [phone] Monday CEMENT OR CONCRETE FINISHING SUPERVISOR, Katie Unavailable SALINAS II, GIOVANNI B Primary [...] 100 tablet 0 03/18/2020 04/17/2020 Active amylases 34971 unt / endopeptidases 65279 unt / lipase 6000 unt delayed release [...] 0 10/13/2023 10/20/2023 Active Continuous Blood Gluc Supply Service Worker (Dexcom G7 Supply Service Worker) device (2 sources) Start: 04-17-2023 End: 04-16-2024 Continuous Blood Gluc Supply Service Worker (Dexcom G7 Supply Service Worker) device Indications: Type 2 diabetes mellitus without complication, without long-term current use of insulin ([facility]) 1 Device yearly. 1 each 04/17/2023 04/16/2024 Active Start: 04-17-2023 End: 04-16-2024 Continuous Blood Gluc Receiv er (Dexcom G7 Supply Service Worker) device Indications: Type 2 diabetes mellitus without [...] polyneuropathy, without long-term current use of insulin ([facility]) Use as instructed 1 each 0 11/14/2022 Active Continuous Glucose Supply Service Worker (FreeStyle Flaco 3 Somis) device (1 source) Start: 10-26-2023 End: 10-25-2024 Continuous Glucose Supply Service Worker (FreeStyle Flaco 3 Somis) device Indications: Type 2 diabetes mellitus without complication, without long-term current use of insulin ([facility]) 1 Device yearly 1 each 10/26/2023 10/25/2024 Active Continuous Glucose Sensor (FreeStyle Flaco 3 Plus Sensor) misc (1 source) Start: 02-23-2024 End: 05-23-2024 Continuous Glucose Sensor (FreeStyle Flaco 3 Plus Sensor) [facility] Indications: Diabetes mellitus due to underlying condition with diabetic polyneuropathy, without long-term current use of insulin ([facility]) 1 Units See administration instructions 1 sensor [...] Start: 02-12-2022 take 1 capsule by mo [facility] every twenty-four hours in the morning [...] 14 days. Take 1 capsule by mo [facility] daily at bedtime for 30 days. [...] Onset: 05-25-2021 Episodic Other aftercare (1 source) detention (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; 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: [[facility] [...] sources) Long-term current use of anticoagulant; 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: [detention (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] Onset: 04-07-2020 12-04-2020 Episodic Other aftercare (20 sources) Long-term current use of insulin; 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: [detention (current) use of insulin] Onset: 05-08-2020 05-08-2020 [...] Results Test Name Value Interpretation Reference Range [facility] 03-18-2024 [facility] Normal [facility] 03-07-2024 [facility] Normal [facility] CBC W Auto Differential pane l (Bld)on 03-05-2024 Basophils (Bld) [#/Vol] [facility] Differential cell count method Nom (Bld) Auto [facility] Eosinophils (Bld) [#/Vol] 0.04 10*3/uL [facility] Immature granulocytes (Bld) [#/Vol] 0.04 10*3/uL [facility] Immature granulocytes/100 WBC (Bld) 0.8 % [facility] Lymphocytes (Bld) [#/Vol] 1.62 10*3/uL [facility] Monocytes (Bld) [#/Vol] 0.91 10*3/uL High [facility] Neutrophils (Bld) [#/Vol] 2.67 10*3/uL [facility] Nucleated RBC (Bld) [#/Vol] [facility] Nucleated RBC/100 WBC (Bld) [Ratio] 0.0 % /100 WBC [facility] Platelet mean volume (Bld) [Entitic vol] 8.9 fL Low 9.0 - 12.7 fL [facility] Platelets (Bld) [#/Vol] 301 10*3/uL [facility] WBC (Bld) [#/Vol] 5.30 10*3/uL [facility] Basophils (Bld) [#/Vol] 10*3/uL Normal <0.11 [facility] Comment on above: Order Comment: Speci men Type: BLOOD SPECIMENOrdering Facility: [facility] Address: [address] [place] [address] Performed By: #### 5 7021-8 ####[facility] LABCLIA [id number] [place] [address] Basophils/100 WBC (Bld) 0.4 % Normal [facility] Comment on above: Order Comment: Speci men Type: BLOOD SPECIMENOrdering Facility: [facility] Address: [address] [place] [address] Performed By: #### 5 7021-8 ####[facility] LABCLIA [id number] [place] [address] Differential cell count method Nom (Bld) Auto Normal [facility] Comment on above: Order Comment: Speci men Type: BLOOD SPECIMENOrdering Facility: [facility] Address: [address] [place] [address] Performed By: #### 5 7021-8 ####[facility] LABCLIA [id number] [place] [address] Eosinophils (Bld) [#/Vol] 0.04 10*3/uL Normal <0.46 [facility] Comment on above: Order Comment: Speci men Type: BLOOD SPECIMENOrdering Facility: [facility] Address: [address] [place] [address] Performed By: #### 5 7021-8 ####[facility] LABCLIA [id number] [place] [address] Eosinophils/100 WBC (Bld) 0.8 % Normal [facility] Comment on above: Order Comment: Speci men Type: BLOOD SPECIMENOrdering Facility: [facility] Address: [address] [place] [address] Performed By: #### 5 7021-8 ####[facility] LABCLIA [id number] [place] [address] Erythrocyte distribution width (RBC) [Ratio] 16.4 % High 11.5-15.0 [facility] Comment on above: Order Comment: Speci men Type: BLOOD SPECIMENOrdering Facility: [facility] Address: [address] [place] [address] Performed By: #### 5 7021-8 ####[facility] LABCLIA [id number] [place] [address] Hematocrit (Bld) [Volume fraction] 35.6 % Low 39.0-51.0 [facility] Comment on above: Order Comment: Speci men Type: BLOOD SPECIMENOrdering Facility: [facility] Address: [address] [place] [address] Performed By: #### 5 7021-8 ####[facility] LABCLIA [id number] [place] [address] Hemoglobin (Bld) [Mass/Vol] 11.6 g/dL Low 13.0-17.0 [facility] Comment on above: Order Comment: Speci men Type: BLOOD SPECIMENOrdering Facility: [facility] Address: [address] [place] [address] Performed By: #### 5 7021-8 ####[facility] LABCLIA [id number] [place] [address] Immature granulocytes (Bld) [#/Vol] 0.04 10*3/uL Normal <0.10 [facility] Comment on above: Order Comment: Speci men Type: BLOOD SPECIMENOrdering Facility: [facility] Address: [address] [place] [address] Performed By: #### 5 7021-8 ####[facility] LABCLIA [id number] [place] [address] Immature granulocytes/100 WBC (Bld) 0.8 % Normal [facility] Comment on above: Order Comment: Speci men Type: BLOOD SPECIMENOrdering Facility: [facility] Address: [address] [place] [address] Performed By: #### 5 7021-8 ####[facility] LABCLIA [id number] [place] [address] Lymphocytes (Bld) [#/Vol] 1.62 10*3/uL Normal 1.00-4.00 [facility] Comment on above: Order Comment: Speci men Type: BLOOD SPECIMENOrdering Facility: [facility] Address: [address] [place] [address] Performed By: #### 5 7021-8 ####[facility] LABCLIA [id number] [place] [address] Lymphocytes/100 WBC (Bld) 30.6 % Normal [facility] Comment on above: Order Comment: Speci men Type: BLOOD SPECIMENOrdering Facility: [facility] Address: [address] [place] [address] Performed By: #### 5 7021-8 ####[facility] LABCLIA [id number] [place] [address] MCH (RBC) [Entitic mass] 30.4 pg Normal 26.0-34.0 [facility] Comment on above: Order Comment: Speci men Type: BLOOD SPECIMENOrdering Facility: [facility] Address: [address] [place] [address] Performed By: #### 5 7021-8 ####[facility] LABCLIA [id number] [place] [address] MCHC (RBC) [Mass/Vol] 32.6 g/dL Normal 30.5-36.0 [facility] Comment on above: Order Comment: Speci men Type: BLOOD SPECIMENOrdering Facility: [facility] Address: [address] [place] [address] Performed By: #### 5 7021-8 ####[facility] LABCLIA [id number] [place] [address] MCV (RBC) [Entitic vol] 93.4 fL Normal 80.0-100.0 [facility] Comment on above: Order Comment: Speci men Type: BLOOD SPECIMENOrdering Facility: [facility] Address: [address] [place] [address] Performed By: #### 5 7021-8 ####[facility] LABCLIA [id number] [place] [address] Monocytes (Bld) [#/Vol] 0.91 10*3/uL High <0.87 [facility] Comment on above: Order Comment: Speci men Type: BLOOD SPECIMENOrdering Facility: [facility] Address: [address] [place] [address] Performed By: #### 5 7021-8 ####[facility] LABCLIA [id number] [place] [address] Monocytes/100 WBC (Bld) 17.2 % Normal [facility] Comment on above: Order Comment: Speci men Type: BLOOD SPECIMENOrdering Facility: [facility] Address: [address] [place] [address] Performed By: #### 5 7021-8 ####[facility] LABCLIA [id number] [place] [address] Neutrophils (Bld) [#/Vol] 2.67 10*3/uL Normal 1.45-7.50 [facility] Comment on above: Order Comment: Speci men Type: BLOOD SPECIMENOrdering Facility: [facility] Address: [address] [place] [address] Performed By: #### 5 7021-8 ####[facility] LABCLIA [id number] [place] [address] Neutrophils/100 WBC (Bld) 50.2 % Normal [facility] Comment on above: Order Comment: Speci men Type: BLOOD SPECIMENOrdering Facility: [facility] Address: [address] [place] [address] Performed By: #### 5 7021-8 ####[facility] LABCLIA [id number] [place] [address] Nucleated RBC (Bld) [#/Vol] 10*3/uL Normal <0.01 [facility] Comment on above: Order Comment: Speci men Type: BLOOD SPECIMENOrdering Facility: [facility] Address: [address] [place] [address] Performed By: #### 5 7021-8 ####[facility] LABCLIA [id number] [place] [address] Nucleated RBC/100 WBC (Bld) [Ratio] 0.0 /100 WBC Normal [facility] Comment on above: Order Comment: Speci men Type: BLOOD SPECIMENOrdering Facility: [facility] Address: [address] [place] [address] Performed By: #### 5 7021-8 ####[facility] LABCLIA [id number] [place] [address] Platelet mean volume (Bld) [Entitic vol] 8.9 fL Low 9.0-12.7 [facility] Comment on above: Order Comment: Speci men Type: BLOOD SPECIMENOrdering Facility: [facility] Address: [address] [place] [address] Performed By: #### 5 7021-8 ####[facility] LABCLIA [id number] [place] [address] Platelets (Bld) [#/Vol] 301 10*3/uL Normal 150-400 [facility] Comment on above: Order Comment: Speci men Type: BLOOD SPECIMENOrdering Facility: [facility] Address: [address] [place] [address] Performed By: #### 5 7021-8 ####[facility] LABCLIA [id number] [place] [address] RBC (Bld) [#/Vol] 3.81 10*6/uL Low 4.20-6.00 [facility] Comment on above: Order Comment: Speci men Type: BLOOD SPECIMENOrdering Facility: [facility] Address: [address] [place] [address] Performed By: #### 5 7021-8 ####[facility] LABIA [id number] [place] [address] WBC (Bld) [#/Vol] 5.30 10*3/uL Normal 3.70-11.00 [facility] Comment on above: Order Comment: Speci men Type: BLOOD SPECIMENOrdering Facility: [facility] Address: [address] [place] [address] Performed By: #### 5 7021-8 ####[facility] LABIA [id number] [place] [address] [facility] CBC W AUTO DIFF BLDon [facility] BASOPHILS # BLD AUTO <0.03 [facility] DIFFERENTIAL METHOD BLD Auto [facility] EOSINOPHIL # BLD AUTO 0.04 [facility] LYMPHOCYTES # BLD AUTO 1.62 [facility] MONOCYTES # BLD AUTO 0.91 High [facility] NEUTROPHILS # BLD AUTO 2.67 [facility] NRBC # BLD AUTO <0.01 [facility] NRBC/100 WBC BLD-RTO 0 /100 WBC [facility] PLATELET # BLD AUTO 301 [facility] PMV BLD AUTO 8.9 fL Low 9.0 - 12.7 fL [facility] WBC # BLD AUTO 5.3 [facility] IMM GRANULOCYTES # BLD AUTO 0.04 [facility] IMM GRANULOCYTES/LEUK NFR BLD AUTO 0.8 % [facility] Specimen Type: BLOOD SPECIMEN Ordering Facility: [facility] Address: [address] [place] [address] Original Ordering Provider: VIVEK CASTILLOISYJULI CNOVSPon 03-05-2024 CNOVSP Normal [facility] Cancer Ag19-9 SerPl-aCncon 1 Cancer Ag 19-9 Qn 385.0 [arb'U]/mL High <36.0 [facility] Comment on above: Order Comment: Speci men Type: BLOOD SPECIMENOrdering Facility: [facility] Address: [address] [place] [address] Result Comment: [facility] er antigen 19-9 test is used as an aid in monitoring response to treatment or recurrence in patients with established pancreatic, hepatobiliary, or gastrointestinal malignancies. Clinical correlation is required.The CA 19-9 Antigen test was performed using the [employer] Unicel DXI paramagnetic particle chemiluminescent immunoassay method. Results obtained with different assay methods or kits cannot be used interchangeably. Performed By: #### 2 4108-3 ####[facility] LABCLIA [id number] [place] [address] [place] [facility] Comprehensive metabolic 2000 panelOrdered By: Elizabeth Yu on 03-05-2024 Albumin [Mass/Vol] 3.9 g/dL 3.9 - 4.9 g/dL [facility] ALP [Catalytic activity/Vol] 177 U/L High 38 - 113 U/L [facility] ALT [Catalytic activity/Vol] 17 U/L 10 - 54 U/L [facility] Anion gap [Moles/Vol] 11 mmol/L 8 - 15 mmol/L [facility] AST [Catalytic activity/Vol] 19 U/L 14 - 40 U/L [facility] Bilirubin [Mass/Vol] 0.7 mg/dL 0.2 - 1 .3 mg/dL [facility] Calcium [Mass/Vol] 10.2 mg/dL 8.5 - 10. 2 mg/dL [facility] Chloride [Moles/Vol] 105 mmol/L 98 - 10 7 mmol/L [facility] CO2 [Moles/Vol] 22 mmol/L 22 - 30 mmol/L [facility] Creatinine [Mass/Vol] 0.81 mg/dL 0.73 - 1.22 mg/dL [facility] GFR/1.73 sq M.predicted among non-blacks MDRD (S/P/Bld) [Vol rate/Area] 94 mL/min/{1.73_m2} - PINF [facility] Comment on above: Estimated Glomerular [...] 163 mg/dL High 74 - 99 mg/dL [facility] Comment on above: The [employer] Diabete s Association (ADA) provides guidance for [...] Standards of Medical Care in Diabetes 2016, [employer] Diabetes Association. Diabetes Care. 2016.39(Suppl 1). Interpretation and review of laboratory results Abnormal [facility] Potassium [Moles/Vol] 4.4 mmol/L 3.7 - 5.1 mmol/L [facility] Protein [Mass/Vol] 6.8 g/dL 6.3 - 8.0 g/dL [facility] Sodium [Moles/Vol] 138 mmol/L 136 - 144 mmol/L [facility] Urea nitrogen [Mass/Vol] 14 mg/dL 9 - 24 mg/dL [facility] Comprehensive metabolic 2000 panelon 03-05-2024 Albumin [Mass/Vol] 3.9 g/dL Normal 3.9-4.9 [facility] Comment on above: Order Comment: Speci men Type: BLOOD SPECIMENOrdering Facility: [facility] Address: [address] [place] [address] Performed By: #### 2 4323-8 ####[facility] LABCLIA [id number] [place] [address] ALP [Catalytic activity/Vol] 177 U/L High 38-113 [facility] Comment on above: Order Comment: Speci men Type: BLOOD SPECIMENOrdering Facility: [facility] Address: [address] [place] [address] Performed By: #### 2 4323-8 ####[facility] LABCLIA [id number] [place] [address] ALT [Catalytic activity/Vol] 17 U/L Normal 10-54 [facility] Comment on above: Order Comment: Speci men Type: BLOOD SPECIMENOrdering Facility: [facility] Address: [address] [place] [address] Performed By: #### 2 4323-8 ####[facility] LABCLIA [id number] [place] [address] Anion gap [Moles/Vol] 11 mmol/L Normal 8-15 [facility] Comment on above: Order Comment: Speci men Type: BLOOD SPECIMENOrdering Facility: [facility] Address: [address] [place] [address] Performed By: #### 2 4323-8 ####[facility] LABCLIA [id number] [place] [address] AST [Catalytic activity/Vol] 19 U/L Normal 14-40 [facility] Comment on above: Order Comment: Speci men Type: BLOOD SPECIMENOrdering Facility: [facility] Address: [address] [place] [address] Performed By: #### 2 4323-8 ####[facility] LABCLIA [id number] [place] [address] Bilirubin [Mass/Vol] 0.7 mg/dL Normal 0.2-1.3 [facility] Comment on above: Order Comment: Speci men Type: BLOOD SPECIMENOrdering Facility: [facility] Address: [address] [place] [address] Performed By: #### 2 4323-8 ####[facility] LABCLIA [id number] [place] [address] Calcium [Mass/Vol] 10.2 mg/dL Normal 8.5-10.2 [facility] Comment on above: Order Comment: Speci men Type: BLOOD SPECIMENOrdering Facility: [facility] Address: [address] [place] [address] Performed By: #### 2 4323-8 ####[facility] LABCLIA [id number] [place] [address] Chloride [Moles/Vol] 105 mmol/L Normal 98-107 [facility] Comment on above: Order Comment: Speci men Type: BLOOD SPECIMENOrdering Facility: [facility] Address: [address] [place] [address] Performed By: #### 2 4323-8 ####[facility] LABCLIA [id number] [place] [address] CO2 [Moles/Vol] 22 mmol/L Normal 22-30 [facility] Comment on above: Order Comment: Speci men Type: BLOOD SPECIMENOrdering Facility: [facility] Address: [address] [place] [address] Performed By: #### 2 4323-8 ####[facility] LABCLIA [id number] [place] [address] Creatinine [Mass/Vol] 0.81 mg/dL Normal 0.73-1.22 [facility] Comment on above: Order Comment: Speci men Type: BLOOD SPECIMENOrdering Facility: [facility] Address: [address] [place] [address] Performed By: #### 2 4323-8 ####[facility] LABIA [id number] [place] [address] Creatinine and Glomerular filtration rate.predicted panel (S/P/Bld) 94 mL/min/1.73m??? Normal >=60 [facility] Comment on above: Order Comment: Speci men Type: BLOOD SPECIMENOrdering Facility: [facility] Address: [address] [place] [address] Result Comment: Kathy mated Glomerular Filtration Rate [...] actual GFR. Performed By: #### 2 4323-8 ####[facility] LABCLIA [id number] [place] [address] Glucose [Mass/Vol] 163 mg/dL High 74-99 [facility] Comment on above: Order Comment: Noemí hoff Type: BLOOD SPECIMENOrdering Facility: [facility] Address: [address] [place] [address] Result Comment: The [place] Diabetes Association (ADA) provides guidance for cutoff [...] Standards of Medical Care in Diabetes 2016, [place] Diabetes Association. Diabetes Care. 2016.39(Suppl 1). Performed By: #### 2 4323-8 ####[facility] LABCLIA [id number] [place] [address] Potassium [Moles/Vol] 4.4 mmol/L Normal 3.7-5.1 [facility] Comment on above: Order Comment: Noemí hoff Type: BLOOD SPECIMENOrdering Facility: [facility] Address: [address] [place] [id number] Performed By: #### 2 4323-8 ####[facility] LABCLIA [id number] [place] [address] Protein [Mass/Vol] 6.8 g/dL Normal 6.3-8.0 [facility] Comment on above: Order Comment: Speci men Type: BLOOD SPECIMENOrdering Facility: [facility] Address: [address] [place] [address] Performed By: #### 2 4323-8 ####[facility] LABCLIA [id number] [place] [address] Sodium [Moles/Vol] 138 mmol/L Normal 136-144 [facility] Comment on above: Order Comment: Speci men Type: BLOOD SPECIMENOrdering Facility: [facility] Address: [address] [place] [address] Performed By: #### 2 4323-8 ####[facility] LABCLIA [id number] [place] [id number] Urea nitrogen [Mass/Vol] 14 mg/dL Normal 9-24 [facility] Comment on above: Order Comment: Speci men Type: BLOOD SPECIMENOrdering Facility: [facility] Address: [address] [place] [address] Performed By: #### 2 4323-8 ####[facility] LABCLIA [id number] [place] [address] Laboratory - Hematology and Cell countson 03-05-2024 Basophils/100 WBC (Bld) 0.4 % [facility] Eosinophils/100 WBC (Bld) 0.8 % [facility] Erythrocyte distribution width (RBC) [Ratio] 16.4 % High 11.5 - 15.0 % [facility] Hematocrit (Bld) [Volume fraction] 35.6 % Low 39.0 - 51.0 % [facility] Hemoglobin (Bld) [Mass/Vol] 11.6 g/dL Low 13.0 - 17.0 g/dL [facility] Lymphocytes/100 WBC (Bld) 30.6 % [facility] MCH (RBC) [Entitic mass] 30.4 pg 26.0 - 34.0 pg [facility] MCHC (RBC) [Mass/Vol] 32.6 g/dL 30.5 - 36.0 g/dL [facility] MCV (RBC) [Entitic vol] 93.4 fL 80.0 - 100.0 fL [facility] Monocytes/100 WBC (Bld) 17.2 % [facility] Neutrophils/100 WBC (Bld) 50.2 % [facility] RBC (Bld) [#/Vol] 3.81 10*6/uL Low 4.20 - 6.0 0 m/uL [facility] [facility] No Panel Informationon 03-05 Interpretation and review of laboratory results Abnormal [facility] CBC W Auto Differential pane l (Bld)on 02-12-2024 Basophils (Bld) [#/Vol] [facility]VAL[facility] Basophils/100 WBC (Bld) 0.4 % [facility] Differential cell count method Nom (Bld) Auto [facility] Eosinophils (Bld) [#/Vol] 0.06 10*3/uL [facility] Eosinophils/100 WBC (Bld) 1.3 % [facility] Erythrocyte distribution width (RBC) [Ratio] 16.0 % High 11.5 - 15.0 % [facility] Hematocrit (Bld) [Volume fraction] 34.0 % Low 39.0 - 51.0 % [facility] Hemoglobin (Bld) [Mass/Vol] 11.3 g/dL Low 13.0 - 17.0 g/dL [facility] Immature granulocytes (Bld) [#/Vol] [facility] Immature granulocytes/100 WBC (Bld) 0.4 % [facility] Interpretation and review of laboratory results Abnormal [facility] Lymphocytes (Bld) [#/Vol] 1.65 10*3/uL [facility] Lymphocytes/100 WBC (Bld) 35.9 % [facility] MCH (RBC) [Entitic mass] 30.5 pg 26.0 - 34.0 pg [facility] MCHC (RBC) [Mass/Vol] 33.2 g/dL 30.5 - 36.0 g/dL [facility] MCV (RBC) [Entitic vol] 91.9 fL 80.0 - 100.0 fL [facility] Monocytes (Bld) [#/Vol] 0.63 10*3/uL [facility] Monocytes/100 WBC (Bld) 13.7 % [facility] Neutrophils (Bld) [#/Vol] 2.22 10*3/uL [facility] Neutrophils/100 WBC (Bld) 48.3 % [facility] Nucleated RBC (Bld) [#/Vol] NINF [facility] Nucleated RBC/100 WBC (Bld) [Ratio] 0.0 % /100 WBC [facility] Platelet mean volume (Bld) [Entitic vol] 9.0 fL 9.0 - 12.7 fL [facility] Platelets (Bld) [#/Vol] 291 10*3/uL [facility] RBC (Bld) [#/Vol] 3.70 10*6/uL Low 4.20 - 6.0 0 m/uL [facility] WBC (Bld) [#/Vol] 4.60 10*3/uL [facility] Basophils (Bld) [#/Vol] 10*3/uL Normal <0.11 [facility] Comment on above: Order Comment: Speci men Type: BLOOD SPECIMENOrdering Facility: [facility] Address: [address] [place] [address] Performed By: #### 5 7021-8 ####[facility] LABCLIA [id number] [place] [address] Basophils/100 WBC (Bld) 0.4 % Normal [facility] Comment on above: Order Comment: Speci men Type: BLOOD SPECIMENOrdering Facility: [facility] Address: [address] [place] [address] Performed By: #### 5 7021-8 ####[facility] LABCLIA [id number] [place] [address] Differential cell count method Nom (Bld) Auto Normal [facility] Comment on above: Order Comment: Speci men Type: BLOOD SPECIMENOrdering Facility: [facility] Address: [address] [place] [address] Performed By: #### 5 7021-8 ####[facility] LABCLIA [id number] [place] [address] Eosinophils (Bld) [#/Vol] 0.06 10*3/uL Normal <0.46 [facility] Comment on above: Order Comment: Speci men Type: BLOOD SPECIMENOrdering Facility: [facility] Address: [address] [place] [address] Performed By: #### 5 7021-8 ####[facility] LABCLIA [id number] [place] [address] Eosinophils/100 WBC (Bld) 1.3 % Normal [facility] Comment on above: Order Comment: Speci men Type: BLOOD SPECIMENOrdering Facility: [facility] Address: [address] [place] [address] Performed By: #### 5 7021-8 ####[facility] LABCLIA [id number] [place] [address] Erythrocyte distribution width (RBC) [Ratio] 16.0 % High 11.5-15.0 [facility] Comment on above: Order Comment: Speci men Type: BLOOD SPECIMENOrdering Facility: [facility] Address: [address] [place] [address] Performed By: #### 5 7021-8 ####[facility] LABCLIA [id number] [place] [address] Hematocrit (Bld) [Volume fraction] 34.0 % Low 39.0-51.0 [facility] Comment on above: Order Comment: Speci men Type: BLOOD SPECIMENOrdering Facility: [facility] Address: [address] [place] [address] Performed By: #### 5 7021-8 ####[facility] LABCLIA [id number] [place] [address] Hemoglobin (Bld) [Mass/Vol] 11.3 g/dL Low 13.0-17.0 [facility] Comment on above: Order Comment: Speci men Type: BLOOD SPECIMENOrdering Facility: [facility] Address: [address] [place] [address] Performed By: #### 5 7021-8 ####[facility] LABCLIA [id number] [place] [address] Immature granulocytes (Bld) [#/Vol] 10*3/uL Normal <0.10 [facility] Comment on above: Order Comment: Speci men Type: BLOOD SPECIMENOrdering Facility: [facility] Address: [address] [place] [address] Performed By: #### 5 7021-8 ####[facility] LABCLIA [id number] [place] [address] Immature granulocytes/100 WBC (Bld) 0.4 % Normal [facility] Comment on above: Order Comment: Speci men Type: BLOOD SPECIMENOrdering Facility: [facility] Address: [address] [place] [address] Performed By: #### 5 7021-8 ####[facility] LABCLIA [id number] [place] [address] Lymphocytes (Bld) [#/Vol] 1.65 10*3/uL Normal 1.00-4.00 [facility] Comment on above: Order Comment: Speci men Type: BLOOD SPECIMENOrdering Facility: [facility] Address: [address] [place] [address] Performed By: #### 5 7021-8 ####[facility] LABCLIA [id number] [place] [address] Lymphocytes/100 WBC (Bld) 35.9 % Normal [facility] Comment on above: Order Comment: Speci men Type: BLOOD SPECIMENOrdering Facility: [facility] Address: [address] [place] [address] Performed By: #### 5 7021-8 ####[facility] LABCLIA [id number] [place] [address] MCH (RBC) [Entitic mass] 30.5 pg Normal 26.0-34.0 [facility] Comment on above: Order Comment: Speci men Type: BLOOD SPECIMENOrdering Facility: [facility] Address: [address] [place] [address] Performed By: #### 5 7021-8 ####[facility] LABCLIA [id number] [place] [address] MCHC (RBC) [Mass/Vol] 33.2 g/dL Normal 30.5-36.0 [facility] Comment on above: Order Comment: Speci men Type: BLOOD SPECIMENOrdering Facility: [facility] Address: [address] [place] [address] Performed By: #### 5 7021-8 ####[facility] LABCLIA [id number] [place] [address] MCV (RBC) [Entitic vol] 91.9 fL Normal 80.0-100.0 [facility] Comment on above: Order Comment: Speci men Type: BLOOD SPECIMENOrdering Facility: [facility] Address: [address] [place] [address] Performed By: #### 5 7021-8 ####[facility] LABCLIA [id number] [place] [address] Monocytes (Bld) [#/Vol] 0.63 10*3/uL Normal <0.87 [facility] Comment on above: Order Comment: Speci men Type: BLOOD SPECIMENOrdering Facility: [facility] Address: [address] [place] [address] Performed By: #### 5 7021-8 ####[facility] LABCLIA [id number] [place] [address] Monocytes/100 WBC (Bld) 13.7 % Normal [facility] Comment on above: Order Comment: Speci men Type: BLOOD SPECIMENOrdering Facility: [facility] Address: [address] [place] [address] Performed By: #### 5 7021-8 ####[facility] LABCLIA [id number] [place] [address] Neutrophils (Bld) [#/Vol] 2.22 10*3/uL Normal 1.45-7.50 [facility] Comment on above: Order Comment: Speci men Type: BLOOD SPECIMENOrdering Facility: [facility] Address: [address] [place] [address] Performed By: #### 5 7021-8 ####[facility] LABCLIA [id number] [place] [address] Neutrophils/100 WBC (Bld) 48.3 % Normal [facility] Comment on above: Order Comment: Speci men Type: BLOOD SPECIMENOrdering Facility: [facility] Address: [address] [place] [address] Performed By: #### 5 7021-8 ####[facility] LABCLIA [id number] [place] [address] Nucleated RBC (Bld) [#/Vol] 10*3/uL Normal <0.01 [facility] Comment on above: Order Comment: Speci men Type: BLOOD SPECIMENOrdering Facility: [facility] Address: [address] [place] [address] Performed By: #### 5 7021-8 ####[facility] LABCLIA [id number] [place] [address] Nucleated RBC/100 WBC (Bld) [Ratio] 0.0 /100 WBC Normal [facility] Comment on above: Order Comment: Speci men Type: BLOOD SPECIMENOrdering Facility: [facility] Address: [address] [place] [address] Performed By: #### 5 7021-8 ####[facility] LABCLIA [id number] [place] [address] Platelet mean volume (Bld) [Entitic vol] 9.0 fL Normal 9.0-12.7 [facility] Comment on above: Order Comment: Speci men Type: BLOOD SPECIMENOrdering Facility: [facility] Address: [address] [place] [address] Performed By: #### 5 7021-8 ####[facility] LABCLIA [id number] [place] [address] Platelets (Bld) [#/Vol] 291 10*3/uL Normal 150-400 [facility] Comment on above: Order Comment: Speci men Type: BLOOD SPECIMENOrdering Facility: [facility] Address: [address] [place] [address] Performed By: #### 5 7021-8 ####[facility] LABCLIA [id number] [place] [address] RBC (Bld) [#/Vol] 3.70 10*6/uL Low 4.20-6.00 [facility] Comment on above: Order Comment: Speci men Type: BLOOD SPECIMENOrdering Facility: [facility] Address: [address] [place] [address] Performed By: #### 5 7021-8 ####[facility] LABIA [id number] [place] [address] WBC (Bld) [#/Vol] 4.60 10*3/uL Normal 3.70-11.00 [facility] Comment on above: Order Comment: Speci men Type: BLOOD SPECIMENOrdering Facility: [facility] Address: [address] [place] [address] Performed By: #### 5 7021-8 ####[facility] LABIA [id number] [place] [address] CNOVSPon 02-12-2024 CNOVSP Normal [facility] Cancer Ag19-9 SerPl-aCncon 0 02-12-2024 Cancer Ag 19-9 Qn 371.0 [arb'U]/mL High <36.0 [facility] Comment on above: Order Comment: Speci men Type: BLOOD SPECIMENOrdering Facility: [facility] Address: [address] [place] [address] Result Comment: Canc er antigen 19-9 test [...] used interchangeably. Performed By: #### 2 4108-3 ####[facility] LABCLIA [id number] [address] [place] Comprehensive metabolic 2000 panelOrdered By: Elizabeth Yu on 02-12-2024 Albumin [Mass/Vol] 4.1 g/dL 3.9 - 4.9 g/dL [facility] ALP [Catalytic activity/Vol] 184 U/L High 38 - 113 U/L [facility] ALT [Catalytic activity/Vol] 12 U/L 10 - 54 U/L [facility] Anion gap [Moles/Vol] 11 mmol/L 8 - 15 mmol/L [facility] AST [Catalytic activity/Vol] 12 U/L Low 14 - 40 U/L [facility] Bilirubin [Mass/Vol] 0.7 mg/dL 0.2 - 1 .3 mg/dL [facility] Calcium [Mass/Vol] 10.6 mg/dL High 8.5 - 10. 2 mg/dL [facility] Chloride [Moles/Vol] 104 mmol/L 98 - 10 7 mmol/L [facility] CO2 [Moles/Vol] 23 mmol/L 22 - 30 mmol/L [facility] Creatinine [Mass/Vol] 0.80 mg/dL 0.73 - 1.22 mg/dL [facility] GFR/1.73 sq M.predicted among non-blacks MDRD (S/P/Bld) [Vol rate/Area] 94 mL/min/{1.73_m2} - PINF [facility] Comment on above: Estimated Glomerular [...] 201 mg/dL High 74 - 99 mg/dL [facility] Comment on above: The [employer] Diabete s Association (ADA) provides guidance for [...] Standards of Medical Care in Diabetes 2016, [employer] Diabetes Association. Diabetes Care. 2016.39(Suppl 1). Interpretation and review of laboratory results Abnormal [facility] Potassium [Moles/Vol] 4.5 mmol/L 3.7 - 5.1 mmol/L [facility] Protein [Mass/Vol] 6.8 g/dL 6.3 - 8.0 g/dL [facility] Sodium [Moles/Vol] 138 mmol/L 136 - 144 mmol/L [facility] Urea nitrogen [Mass/Vol] 12 mg/dL 9 - 24 mg/dL [facility] Comprehensive metabolic 2000 panelon 02-12-2024 Albumin [Mass/Vol] 4.1 g/dL Normal 3.9-4.9 [facility] Comment on above: Order Comment: Speci men Type: BLOOD SPECIMENOrdering Facility: [facility] Address: [address] [place] [address] Performed By: #### 2 4323-8 ####[facility] LABCLIA [id number] [place] [address] ALP [Catalytic activity/Vol] 184 U/L High 38-113 [facility] Comment on above: Order Comment: Speci men Type: BLOOD SPECIMENOrdering Facility: [facility] Address: [address] [place] [address] Performed By: #### 2 4323-8 ####[facility] LABCLIA [id number] [place] [address] ALT [Catalytic activity/Vol] 12 U/L Normal 10-54 [facility] Comment on above: Order Comment: Speci men Type: BLOOD SPECIMENOrdering Facility: [facility] Address: [address] [place] [address] Performed By: #### 2 4323-8 ####[facility] LABCLIA [id number] [place] [address] Anion gap [Moles/Vol] 11 mmol/L Normal 8-15 [facility] Comment on above: Order Comment: Speci men Type: BLOOD SPECIMENOrdering Facility: [facility] Address: [address] [place] [address] Performed By: #### 2 4323-8 ####[facility] LABCLIA [id number] [place] [address] AST [Catalytic activity/Vol] 12 U/L Low 14-40 [facility] Comment on above: Order Comment: Speci men Type: BLOOD SPECIMENOrdering Facility: [facility] Address: [address] [place] [address] Performed By: #### 2 4323-8 ####[facility] LABCLIA [id number] [place] [address] Bilirubin [Mass/Vol] 0.7 mg/dL Normal 0.2-1.3 [facility] Comment on above: Order Comment: Speci men Type: BLOOD SPECIMENOrdering Facility: [facility] Address: [address] [place] [address] Performed By: #### 2 4323-8 ####[facility] LABCLIA [id number] [place] [address] Calcium [Mass/Vol] 10.6 mg/dL High 8.5-10.2 [facility] Comment on above: Order Comment: Speci men Type: BLOOD SPECIMENOrdering Facility: [facility] Address: [address] [place] [address] Performed By: #### 2 4323-8 ####[facility] LABCLIA [id number] [place] [address] Chloride [Moles/Vol] 104 mmol/L Normal 98-107 [facility] Comment on above: Order Comment: Speci men Type: BLOOD SPECIMENOrdering Facility: [facility] Address: [address] [place] [address] Performed By: #### 2 4323-8 ####[facility] LABCLIA [id number] [place] [address] CO2 [Moles/Vol] 23 mmol/L Normal 22-30 [facility] Comment on above: Order Comment: Speci men Type: BLOOD SPECIMENOrdering Facility: [facility] Address: [address] [place] [address] Performed By: #### 2 4323-8 ####[facility] LABCLIA [id number] [place] [address] Creatinine [Mass/Vol] 0.80 mg/dL Normal 0.73-1.22 [facility] Comment on above: Order Comment: Speci men Type: BLOOD SPECIMENOrdering Facility: [facility] Address: [address] [place] [address] Performed By: #### 2 4323-8 ####[facility] LABCLIA [id number] [place] [address] Creatinine and Glomerular filtration rate.predicted panel (S/P/Bld) 94 mL/min/1.73m??? Normal >=60 [facility] Comment on above: Order Comment: Speci men Type: BLOOD SPECIMENOrdering Facility: [facility] Address: [address] [place] [address] Result Comment: Kathy mated Glomerular Filtration Rate [...] actual GFR. Performed By: #### 2 4323-8 ####[facility] LABCLIA [id number] [place] [address] Glucose [Mass/Vol] 201 mg/dL High 74-99 [facility] Comment on above: Order Comment: Speci men Type: BLOOD SPECIMENOrdering Facility: [facility] Address: [address] [place], [place] [id number] Result Comment: The [employer] Diabetes Association (ADA) provides guidance for cutoff [...] Standards of Medical Care in Diabetes 2016, [place] Diabetes Association. Diabetes Care. 2016.39(Suppl 1). Performed By: #### 2 4323-8 ####[facility] LABCLIA [id number] [place] [address] Potassium [Moles/Vol] 4.5 mmol/L Normal 3.7-5.1 [facility] Comment on above: Order Comment: Speci men Type: BLOOD SPECIMENOrdering Facility: [facility] Address: [address] [place], [place] [id number] Performed By: #### 2 4323-8 ####[facility] LABCLIA [id number] [place] [address] Protein [Mass/Vol] 6.8 g/dL Normal 6.3-8.0 [facility] Comment on above: Order Comment: Speci men Type: BLOOD SPECIMENOrdering Facility: [facility] Address: [address] [place], [place] [id number] Performed By: #### 2 4323-8 ####[facility] LABCLIA [id number] [place] [address] Sodium [Moles/Vol] 138 mmol/L Normal 136-144 [facility] Comment on above: Order Comment: Speci men Type: BLOOD SPECIMENOrdering Facility: [facility] Address: [address] [place], [place] [id number] Performed By: #### 2 4323-8 ####[facility] LABCLIA [id number] [place] [id number] Urea nitrogen [Mass/Vol] 12 mg/dL Normal 9-24 [facility] Comment on above: Order Comment: Speci men Type: BLOOD SPECIMENOrdering Facility: [facility] Address: [address] [place] [address] Performed By: #### 2 4323-8 ####[facility] LABCLIA [id number] [place] [address] CBC W Auto Differential pane l (Bld)on 01-23-2024 Basophils (Bld) [#/Vol] [facility] Basophils/100 WBC (Bld) 0.4 % [facility] Differential cell count method Nom (Bld) Auto [facility] Eosinophils (Bld) [#/Vol] 0.05 10*3/uL [facility] Eosinophils/100 WBC (Bld) 1.1 % [facility] Erythrocyte distribution width (RBC) [Ratio] 15.8 % High 11.5 - 15.0 % [facility] Hematocrit (Bld) [Volume fraction] 35.1 % Low 39.0 - 51.0 % [facility] Hemoglobin (Bld) [Mass/Vol] 11.5 g/dL Low 13.0 - 17.0 g/dL [facility] Immature granulocytes (Bld) [#/Vol] [facility] Immature granulocytes/100 WBC (Bld) 0.4 % [facility] Interpretation and review of laboratory results Abnormal [facility] Lymphocytes (Bld) [#/Vol] 1.62 10*3/uL [facility] Lymphocytes/100 WBC (Bld) 35.7 % [facility] MCH (RBC) [Entitic mass] 29.9 pg 26.0 - 34.0 pg [facility] MCHC (RBC) [Mass/Vol] 32.8 g/dL 30.5 - 36.0 g/dL [facility] MCV (RBC) [Entitic vol] 91.4 fL 80.0 - 100.0 fL [facility] Monocytes (Bld) [#/Vol] 0.59 10*3/uL [facility] Monocytes/100 WBC (Bld) 13.0 % [facility] Neutrophils (Bld) [#/Vol] 2.24 10*3/uL [facility] Neutrophils/100 WBC (Bld) 49.4 % [facility] Nucleated RBC (Bld) [#/Vol] NINF [facility] Nucleated RBC/100 WBC (Bld) [Ratio] 0.0 % /100 WBC [facility] Platelet mean volume (Bld) [Entitic vol] 9.0 fL 9.0 - 12.7 fL [facility] Platelets (Bld) [#/Vol] 277 10*3/uL [facility] RBC (Bld) [#/Vol] 3.84 10*6/uL Low 4.20 - 6.0 0 m/uL [facility] WBC (Bld) [#/Vol] 4.54 10*3/uL [facility] Basophils (Bld) [#/Vol] 10*3/uL Normal <0.11 [facility] Comment on above: Order Comment: Speci men Type: BLOOD SPECIMENOrdering Facility: [facility] Address: [address] [place] [address] Performed By: #### 5 7021-8 ####[facility] LABCLIA [id number] [place] [address] Basophils/100 WBC (Bld) 0.4 % Normal [facility] Comment on above: Order Comment: Speci men Type: BLOOD SPECIMENOrdering Facility: [facility] Address: [address] [place] [address] Performed By: #### 5 7021-8 ####[facility] LABCLIA [id number] [place] [address] Differential cell count method Nom (Bld) Auto Normal [facility] Comment on above: Order Comment: Speci men Type: BLOOD SPECIMENOrdering Facility: [facility] Address: [address] [place] [address] Performed By: #### 5 7021-8 ####[facility] LABCLIA [id number] [place] [address] Eosinophils (Bld) [#/Vol] 0.05 10*3/uL Normal <0.46 [facility] Comment on above: Order Comment: Speci men Type: BLOOD SPECIMENOrdering Facility: [facility] Address: [address] [place] [address] Performed By: #### 5 7021-8 ####[facility] LABCLIA [id number] [place] [address] Eosinophils/100 WBC (Bld) 1.1 % Normal [facility] Comment on above: Order Comment: Speci men Type: BLOOD SPECIMENOrdering Facility: [facility] Address: [address] [place] [address] Performed By: #### 5 7021-8 ####[facility] LABCLIA [id number] [place] [address] Erythrocyte distribution width (RBC) [Ratio] 15.8 % High 11.5-15.0 [facility] Comment on above: Order Comment: Speci men Type: BLOOD SPECIMENOrdering Facility: [facility] Address: [address] [place] [address] Performed By: #### 5 7021-8 ####[facility] LABCLIA [id number] [place] [address] Hematocrit (Bld) [Volume fraction] 35.1 % Low 39.0-51.0 [facility] Comment on above: Order Comment: Speci men Type: BLOOD SPECIMENOrdering Facility: [facility] Address: [address] [place] [address] Performed By: #### 5 7021-8 ####[facility] LABCLIA [id number] [place] [address] Hemoglobin (Bld) [Mass/Vol] 11.5 g/dL Low 13.0-17.0 [facility] Comment on above: Order Comment: Speci men Type: BLOOD SPECIMENOrdering Facility: [facility] Address: [address] [place] [address] Performed By: #### 5 7021-8 ####[facility] LABCLIA [id number] [place] [address] Immature granulocytes (Bld) [#/Vol] 10*3/uL Normal <0.10 [facility] Comment on above: Order Comment: Speci men Type: BLOOD SPECIMENOrdering Facility: [facility] Address: [address] [place] [address] Performed By: #### 5 7021-8 ####[facility] LABCLIA [id number] [place] [address] Immature granulocytes/100 WBC (Bld) 0.4 % Normal [facility] Comment on above: Order Comment: Speci men Type: BLOOD SPECIMENOrdering Facility: [facility] Address: [address] [place] [address] Performed By: #### 5 7021-8 ####[facility] LABCLIA [id number] [place] [address] Lymphocytes (Bld) [#/Vol] 1.62 10*3/uL Normal 1.00-4.00 [facility] Comment on above: Order Comment: Speci men Type: BLOOD SPECIMENOrdering Facility: [facility] Address: [address] [place] [address] Performed By: #### 5 7021-8 ####[facility] LABCLIA [id number] [place] [address] Lymphocytes/100 WBC (Bld) 35.7 % Normal [facility] Comment on above: Order Comment: Speci men Type: BLOOD SPECIMENOrdering Facility: [facility] Address: [address] [place] [address] Performed By: #### 5 7021-8 ####[facility] LABCLIA [id number] [place] [address] MCH (RBC) [Entitic mass] 29.9 pg Normal 26.0-34.0 [facility] Comment on above: Order Comment: Speci men Type: BLOOD SPECIMENOrdering Facility: [facility] Address: [address] [place] [address] Performed By: #### 5 7021-8 ####[facility] LABCLIA [id number] [place] [address] MCHC (RBC) [Mass/Vol] 32.8 g/dL Normal 30.5-36.0 [facility] Comment on above: Order Comment: Speci men Type: BLOOD SPECIMENOrdering Facility: [facility] Address: [address] [place] [address] Performed By: #### 5 7021-8 ####[facility] LABCLIA [id number] [place] [address] MCV (RBC) [Entitic vol] 91.4 fL Normal 80.0-100.0 [facility] Comment on above: Order Comment: Speci men Type: BLOOD SPECIMENOrdering Facility: [facility] Address: [address] [place] [address] Performed By: #### 5 7021-8 ####[facility] LABCLIA [id number] [place] [address] Monocytes (Bld) [#/Vol] 0.59 10*3/uL Normal <0.87 [facility] Comment on above: Order Comment: Speci men Type: BLOOD SPECIMENOrdering Facility: [facility] Address: [address] [place] [address] Performed By: #### 5 7021-8 ####[facility] LABCLIA [id number] [place] [address] Monocytes/100 WBC (Bld) 13.0 % Normal [facility] Comment on above: Order Comment: Speci men Type: BLOOD SPECIMENOrdering Facility: [facility] Address: [address] [place] [address] Performed By: #### 5 7021-8 ####[facility] LABCLIA [id number] [place] [address] Neutrophils (Bld) [#/Vol] 2.24 10*3/uL Normal 1.45-7.50 [facility] Comment on above: Order Comment: Speci men Type: BLOOD SPECIMENOrdering Facility: [facility] Address: [address] [place] [address] Performed By: #### 5 7021-8 ####[facility] LABCLIA [id number] [place] [address] Neutrophils/100 WBC (Bld) 49.4 % Normal [facility] Comment on above: Order Comment: Speci men Type: BLOOD SPECIMENOrdering Facility: [facility] Address: [address] [place] [address] Performed By: #### 5 7021-8 ####[facility] LABCLIA [id number] [place] [address] Nucleated RBC (Bld) [#/Vol] 10*3/uL Normal <0.01 [facility] Comment on above: Order Comment: Speci men Type: BLOOD SPECIMENOrdering Facility: [facility] Address: [address] [place] [address] Performed By: #### 5 7021-8 ####[facility] LABCLIA [id number] [place] [address] Nucleated RBC/100 WBC (Bld) [Ratio] 0.0 /100 WBC Normal [facility] Comment on above: Order Comment: Speci men Type: BLOOD SPECIMENOrdering Facility: [facility] Address: [address] [place] [address] Performed By: #### 5 7021-8 ####[facility] LABCLIA [id number] [place] [address] Platelet mean volume (Bld) [Entitic vol] 9.0 fL Normal 9.0-12.7 [facility] Comment on above: Order Comment: Speci men Type: BLOOD SPECIMENOrdering Facility: [facility] Address: [address] [place] [address] Performed By: #### 5 7021-8 ####[facility] LABIA [id number] [place] [address] Platelets (Bld) [#/Vol] 277 10*3/uL Normal 150-400 [facility] Comment on above: Order Comment: Speci men Type: BLOOD SPECIMENOrdering Facility: [facility] Address: [address] [place] [address] Performed By: #### 5 7021-8 ####[facility] LABIA [id number] [place] [address] RBC (Bld) [#/Vol] 3.84 10*6/uL Low 4.20-6.00 [facility] Comment on above: Order Comment: Speci men Type: BLOOD SPECIMENOrdering Facility: [facility] Address: [address] [place] [address] Performed By: #### 5 7021-8 ####[facility] LABIA [id number] [place] [address] WBC (Bld) [#/Vol] 4.54 10*3/uL Normal 3.70-11.00 [facility] Comment on above: Order Comment: Speci men Type: BLOOD SPECIMENOrdering Facility: [facility] Address: [address] [place] [address] Performed By: #### 5 7021-8 ####[facility] LABIA [id number] [place] [address] CNOVSPon 01-23-2024 CNOVSP Normal [facility] Cancer Ag19-9 SerPl-aCncon 0 01-23-2024 Cancer Ag 19-9 Qn 444.0 [arb'U]/mL High <36.0 [facility] Comment on above: Order Comment: Speci men Type: BLOOD SPECIMENOrdering Facility: [facility] Address: [address] [place] [address] Result Comment: [facility] er antigen 19-9 test is used as an aid in monitoring response to treatment or recurrence in patients with established pancreatic, hepatobiliary, or gastrointestinal malignancies. Clinical correlation is required.The CA 19-9 Antigen test was performed using the [employer] DXI paramagnetic particle chemiluminescent immunoassay method. Results obtained with different assay methods or kits cannot be used interchangeably. Performed By: #### 2 4108-3 ####[facility] LABIA [id number] [place] [address] [place] Comprehensive metabolic 2000 panelon 01-23-2024 Albumin [Mass/Vol] 4.0 g/dL Normal 3.9-4.9 [facility] Comment on above: Order Comment: Speci men Type: BLOOD SPECIMENOrdering Facility: [facility] Address: [address] [place] [address] Result Comment: Josh ected result: Previously reported as 4.1 g/dL on 01/23/2024 at 10:24 AM EDT. Performed By: #### 2 4323-8 ####[facility] LABIA [id number] [place] [address] [place] ALP [Catalytic activity/Vol] 185 U/L High 38-113 [facility] Comment on above: Order Comment: Noem[facility] Type: BLOOD SPECIMENOrdering Facility: [facility] Address: [address] [place] [address] Result Comment: Josh ected result: Previously reported as 190 U/L on 01/23/2024 at 10:24 AM EDT. Performed By: #### 2 4323-8 ####[facility] LABCLIA [id number] [place] [address] [place] ALT [Catalytic activity/Vol] 30 U/L Normal 10-54 [facility] Comment on above: Order Comment: Speci men Type: BLOOD SPECIMENOrdering Facility: [facility] Address: [address] [place] [address] Result Comment: Josh ected result: Previously reported as 22 U/L on 01/23/2024 at 10:24 AM EDT. Performed By: #### 2 4323-8 ####[facility] LABCLIA [id number] [place] [address] [place] Anion gap [Moles/Vol] 15 mmol/L Normal 8-15 [facility] Comment on above: Order Comment: Speci men Type: BLOOD SPECIMENOrdering Facility: [facility] Address: [address] [place] [address] Performed By: #### 2 4323-8 ####[facility] LABCLIA [id number] [place] [address] [place] AST [Catalytic activity/Vol] 27 U/L Normal 14-40 [facility] Comment on above: Order Comment: Speci men Type: BLOOD SPECIMENOrdering Facility: [facility] Address: [address] [place] [address] Result Comment: Josh ected result: Previously reported as 16 U/L on 01/23/2024 at 10:24 AM EDT. Performed By: #### 2 4323-8 ####[facility] LABCLIA [id number] [place] [address] [place] Bilirubin [Mass/Vol] 0.7 mg/dL Normal 0.2-1.3 [facility] Comment on above: Order Comment: Speci men Type: BLOOD SPECIMENOrdering Facility: [facility] Address: [address] [place] [address] Performed By: #### 2 4323-8 ####[facility] LABCLIA [id number] [place] [address] [place] Calcium [Mass/Vol] 10.4 mg/dL High 8.5-10.2 [facility] Comment on above: Order Comment: Speci men Type: BLOOD SPECIMENOrdering Facility: [facility] Address: [address] [place] [address] Result Comment: Josh ected result: Previously reported as 10.5 mg/dL on 01/23/2024 at 10:24 AM EDT. Performed By: #### 2 4323-8 ####[facility] LABIA [id number] [place] [address] [place] Chloride [Moles/Vol] 102 mmol/L Normal 98-107 [facility] Comment on above: Order Comment: Speci men Type: BLOOD SPECIMENOrdering Facility: [facility] Address: [address] [place] [address] Result Comment: Resu lt rechecked. Performed By: #### 2 4323-8 ####[facility] LABIA [id number] [place] [address] [place] CO2 [Moles/Vol] 21 mmol/L Low 22-30 [facility] Comment on above: Order Comment: Speci men Type: BLOOD SPECIMENOrdering Facility: [facility] Address: [address] [place] [address] Result Comment: Josh ected result: Previously reported as 24 mmol/L on 01/23/2024 at 10:24 AM EDT. Performed By: #### 2 4323-8 ####[facility] LABIA [id number] [place] [address] [place] Creatinine [Mass/Vol] 0.84 mg/dL Normal 0.73-1.22 [facility] Comment on above: Order Comment: Speci men Type: BLOOD SPECIMENOrdering Facility: [facility] Address: [address] [place] [address] Result Comment: Josh ected result: Previously reported as 0.83 mg/dL on 01/23/2024 at 10:24 AM EDT. Performed By: #### 2 4323-8 ####[facility] LABCLIA [id number] [place] [address] [place] Creatinine and Glomerular filtration rate.predicted panel (S/P/Bld) 93 mL/min/1.73m??? Normal >=60 [facility] Comment on above: Order Comment: Speci luis eduardo Type: BLOOD SPECIMENOrdering Facility: [facility] Address: [address] [place] [address] Result Comment: Kathy mated Glomerular Filtration Rate [...] actual GFR. Performed By: #### 2 4323-8 ####[facility] LABIA [id number] [place] [address] [place] Glucose [Mass/Vol] 144 mg/dL High 74-99 [facility] Comment on above: Order Comment: Noemí hoff Type: BLOOD SPECIMENOrdering Facility: [facility] Address: [address] [place] [address] Result Comment: The [employer] Diabetes Association (ADA) provides guidance for cutoff [...] Standards of Medical Care in Diabetes 2016, [place] Diabetes Association. Diabetes Care. 2016.39(Suppl 1).Corrected result: Previously reported as 163 mg/dL on 01/23/2024 at 10:24 AM EDT. Performed By: #### 2 4323-8 ####[facility] LABCLIA [id number] [address] [address] [place] Potassium [Moles/Vol] 4.8 mmol/L Normal 3.7-5.1 [facility] Comment on above: Order Comment: Speci men Type: BLOOD SPECIMENOrdering Facility: [facility] Address: [address] [place] [address] Performed By: #### 2 4323-8 ####[facility] LABCLIA [id number] [place] [address] [place] Protein [Mass/Vol] 7.1 g/dL Normal 6.3-8.0 [facility] Comment on above: Order Comment: Speci men Type: BLOOD SPECIMENOrdering Facility: [facility] Address: [address] [place] [address] Result Comment: Josh ected result: Previously reported as 6.7 g/dL on 01/23/2024 at 10:24 AM EDT. Performed By: #### 2 4323-8 ####[facility] LABCLIA [id number] [place] [address] [place] Sodium [Moles/Vol] 138 mmol/L Normal 136-144 [facility] Comment on above: Order Comment: Speci men Type: BLOOD SPECIMENOrdering Facility: [facility] Address: [address] [place] [address] Result Comment: Resu lt rechecked. Performed By: #### 2 4323-8 ####[facility] LABCLIA [id number] [place] [address] [place] Urea nitrogen [Mass/Vol] 12 mg/dL Normal 9-24 [facility] Comment on above: Order Comment: Speci men Type: BLOOD SPECIMENOrdering Facility: [facility] Address: [address] [place] [address] Performed By: #### 2 4323-8 ####[facility] LABCLIA [id number] [address] [address] [place] CA 19-9on 01-04-2024 Cancer Ag 19-9 Qn 290.0 [arb'U]/mL High NINF - 36.0 U/mL [facility] Comment on above: Cancer antigen 19-9 test is used as an aid in monitoring response to treatment or recurrence in patients with established pancreatic, hepatobiliary, or gastrointestinal malignancies. Clinical correlation is required. The CA 19-9 Antigen test was performed using the [employer] DXI paramagnetic particle chemiluminescent immunoassay method. Results obtained with different assay methods or kits cannot be used interchangeably. CNPNon 01-04-2024 CNPN Normal [facility] Cancer Ag 19-9 Qnon 01-04-20 24 Interpretation and review of laboratory results Abnormal [facility] CBC W Auto Differential pane l (Bld)on 01-03-2024 Basophils (Bld) [#/Vol] [facility] Basophils/100 WBC (Bld) 0.4 % [facility] Differential cell count method Nom (Bld) Auto [facility] Eosinophils (Bld) [#/Vol] 0.05 10*3/uL [facility] Eosinophils/100 WBC (Bld) 1.0 % [facility] Erythrocyte distribution width (RBC) [Ratio] 15.8 % High 11.5 - 15.0 % [facility] Hematocrit (Bld) [Volume fraction] 33.7 % Low 39.0 - 51.0 % [facility] Hemoglobin (Bld) [Mass/Vol] 11.1 g/dL Low 13.0 - 17.0 g/dL [facility] Immature granulocytes (Bld) [#/Vol] 0.03 10*3/uL [facility] Immature granulocytes/100 WBC (Bld) 0.6 % [facility] Interpretation and review of laboratory results Abnormal [facility] Lymphocytes (Bld) [#/Vol] 1.69 10*3/uL [facility] Lymphocytes/100 WBC (Bld) 32.4 % [facility] MCH (RBC) [Entitic mass] 30.3 pg 26.0 - 34.0 pg [facility] MCHC (RBC) [Mass/Vol] 32.9 g/dL 30.5 - 36.0 g/dL [facility] MCV (RBC) [Entitic vol] 92.1 fL 80.0 - 100.0 fL [facility] Monocytes (Bld) [#/Vol] 0.79 10*3/uL [facility] Monocytes/100 WBC (Bld) 15.1 % [facility] Neutrophils (Bld) [#/Vol] 2.64 10*3/uL [facility] Neutrophils/100 WBC (Bld) 50.5 % [facility] Nucleated RBC (Bld) [#/Vol] NINF [facility] Nucleated RBC/100 WBC (Bld) [Ratio] 0.0 % /100 WBC [facility] Platelet mean volume (Bld) [Entitic vol] 9.4 fL 9.0 - 12.7 fL [facility] Platelets (Bld) [#/Vol] 288 10*3/uL [facility] RBC (Bld) [#/Vol] 3.66 10*6/uL Low 4.20 - 6.0 0 m/uL [facility] WBC (Bld) [#/Vol] 5.22 10*3/uL [facility] Basophils (Bld) [#/Vol] 10*3/uL Normal <0.11 [facility] Comment on above: Order Comment: Speci men Type: BLOOD SPECIMENOrdering Facility: [facility] Address: [address] [place] [address] Performed By: #### 5 7021-8 ####[facility] LABCLIA [id number] [place] [address] Basophils/100 WBC (Bld) 0.4 % Normal [facility] Comment on above: Order Comment: Speci men Type: BLOOD SPECIMENOrdering Facility: [facility] Address: [address] [place] [address] Performed By: #### 5 7021-8 ####[facility] LABCLIA [id number] [place] [address] Differential cell count method Nom (Bld) Auto Normal [facility] Comment on above: Order Comment: Speci men Type: BLOOD SPECIMENOrdering Facility: [facility] Address: [address] [place] [address] Performed By: #### 5 7021-8 ####[facility] LABCLIA [id number] [place] [address] Eosinophils (Bld) [#/Vol] 0.05 10*3/uL Normal <0.46 [facility] Comment on above: Order Comment: Speci men Type: BLOOD SPECIMENOrdering Facility: [facility] Address: [address] [place] [address] Performed By: #### 5 7021-8 ####[facility] LABCLIA [id number] [place] [address] Eosinophils/100 WBC (Bld) 1.0 % Normal [facility] Comment on above: Order Comment: Speci men Type: BLOOD SPECIMENOrdering Facility: [facility] Address: [address] [place] [address] Performed By: #### 5 7021-8 ####[facility] LABCLIA [id number] [place] [address] Erythrocyte distribution width (RBC) [Ratio] 15.8 % High 11.5-15.0 [facility] Comment on above: Order Comment: Speci men Type: BLOOD SPECIMENOrdering Facility: [facility] Address: [address] [place] [address] Performed By: #### 5 7021-8 ####[facility] LABCLIA [id number] [place] [address] Hematocrit (Bld) [Volume fraction] 33.7 % Low 39.0-51.0 [facility] Comment on above: Order Comment: Speci men Type: BLOOD SPECIMENOrdering Facility: [facility] Address: [address] [place] [address] Performed By: #### 5 7021-8 ####[facility] LABCLIA [id number] [place] [address] Hemoglobin (Bld) [Mass/Vol] 11.1 g/dL Low 13.0-17.0 [facility] Comment on above: Order Comment: Speci men Type: BLOOD SPECIMENOrdering Facility: [facility] Address: [address] [place] [address] Performed By: #### 5 7021-8 ####[facility] LABCLIA [id number] [place] [address] Immature granulocytes (Bld) [#/Vol] 0.03 10*3/uL Normal <0.10 [facility] Comment on above: Order Comment: Speci men Type: BLOOD SPECIMENOrdering Facility: [facility] Address: [address] [place] [address] Performed By: #### 5 7021-8 ####[facility] LABCLIA [id number] [place] [address] Immature granulocytes/100 WBC (Bld) 0.6 % Normal [facility] Comment on above: Order Comment: Speci men Type: BLOOD SPECIMENOrdering Facility: [facility] Address: [address] [place] [address] Performed By: #### 5 7021-8 ####[facility] LABCLIA [id number] [place] [address] Lymphocytes (Bld) [#/Vol] 1.69 10*3/uL Normal 1.00-4.00 [facility] Comment on above: Order Comment: Speci men Type: BLOOD SPECIMENOrdering Facility: [facility] Address: [address] [place] [address] Performed By: #### 5 7021-8 ####[facility] LABCLIA [id number] [place] [address] Lymphocytes/100 WBC (Bld) 32.4 % Normal [facility] Comment on above: Order Comment: Speci men Type: BLOOD SPECIMENOrdering Facility: [facility] Address: [address] [place] [address] Performed By: #### 5 7021-8 ####[facility] LABCLIA [id number] [place] [address] MCH (RBC) [Entitic mass] 30.3 pg Normal 26.0-34.0 [facility] Comment on above: Order Comment: Speci men Type: BLOOD SPECIMENOrdering Facility: [facility] Address: [address] [place] [address] Performed By: #### 5 7021-8 ####[facility] LABCLIA [id number] [place] [address] MCHC (RBC) [Mass/Vol] 32.9 g/dL Normal 30.5-36.0 [facility] Comment on above: Order Comment: Speci men Type: BLOOD SPECIMENOrdering Facility: [facility] Address: [address] [place] [address] Performed By: #### 5 7021-8 ####[facility] LABIA [id number] [place] [address] MCV (RBC) [Entitic vol] 92.1 fL Normal 80.0-100.0 [facility] Comment on above: Order Comment: Speci men Type: BLOOD SPECIMENOrdering Facility: [facility] Address: [address] [place] [address] Performed By: #### 5 7021-8 ####[facility] LABIA [id number] [place] [address] Monocytes (Bld) [#/Vol] 0.79 10*3/uL Normal <0.87 [facility] Comment on above: Order Comment: Speci men Type: BLOOD SPECIMENOrdering Facility: [facility] Address: [address] [place] [address] Performed By: #### 5 7021-8 ####[facility] LABIA [id number] [place] [address] Monocytes/100 WBC (Bld) 15.1 % Normal [facility] Comment on above: Order Comment: Speci men Type: BLOOD SPECIMENOrdering Facility: [facility] Address: [address] [place] [address] Performed By: #### 5 7021-8 ####[facility] LABCLIA [id number] [place] [address] Neutrophils (Bld) [#/Vol] 2.64 10*3/uL Normal 1.45-7.50 [facility] Comment on above: Order Comment: Speci men Type: BLOOD SPECIMENOrdering Facility: [facility] Address: [address] [place] [address] Performed By: #### 5 7021-8 ####[facility] LABCLIA [id number] [place] [address] Neutrophils/100 WBC (Bld) 50.5 % Normal [facility] Comment on above: Order Comment: Speci men Type: BLOOD SPECIMENOrdering Facility: [facility] Address: [address] [place] [address] Performed By: #### 5 7021-8 ####[facility] LABCLIA [id number] [place] [address] Nucleated RBC (Bld) [#/Vol] 10*3/uL Normal <0.01 [facility] Comment on above: Order Comment: Speci men Type: BLOOD SPECIMENOrdering Facility: [facility] Address: [address] [place] [address] Performed By: #### 5 7021-8 ####[facility] LABCLIA [id number] [place] [address] Nucleated RBC/100 WBC (Bld) [Ratio] 0.0 /100 WBC Normal [facility] Comment on above: Order Comment: Speci men Type: BLOOD SPECIMENOrdering Facility: [facility] Address: [address] [place] [address] Performed By: #### 5 7021-8 ####[facility] LABCLIA [id number] [place] [address] Platelet mean volume (Bld) [Entitic vol] 9.4 fL Normal 9.0-12.7 [facility] Comment on above: Order Comment: Speci men Type: BLOOD SPECIMENOrdering Facility: [facility] Address: [address] [place] [address] Performed By: #### 5 7021-8 ####[facility] LABCLIA [id number] [place] [address] Platelets (Bld) [#/Vol] 288 10*3/uL Normal 150-400 [facility] Comment on above: Order Comment: Speci men Type: BLOOD SPECIMENOrdering Facility: [facility] Address: [address] [place] [address] Performed By: #### 5 7021-8 ####[facility] LABIA [id number] [place] [address] RBC (Bld) [#/Vol] 3.66 10*6/uL Low 4.20-6.00 [facility] [facility] Comment on above: Order Comment: Speci men Type: BLOOD SPECIMENOrdering Facility: [facility] Address: [address] [place] [address] Performed By: #### 5 7021-8 ####[facility] LABIA [id number] [place] [address] WBC (Bld) [#/Vol] 5.22 10*3/uL Normal 3.70-11.00 [facility] Comment on above: Order Comment: Speci men Type: BLOOD SPECIMENOrdering Facility: [facility] Address: [address] [place] [address] Performed By: #### 5 7021-8 ####[facility] LABIA [id number] [place] [address] CNOVSPon 01-03-2024 CNOVSP Normal [facility] Cancer Ag19-9 SerPl-aCncon 0 01-03-2024 Cancer Ag 19-9 Qn 290.0 [arb'U]/mL High <36.0 [facility] Comment on above: Order Comment: Speci luis eduardo Type: BLOOD SPECIMENOrdering Facility: [facility] Address: [address] [place] [address] Result Comment: [facility] er antigen 19-9 test is used as an aid in monitoring response to treatment or recurrence in patients with established pancreatic, hepatobiliary, or gastrointestinal malignancies. Clinical correlation is required.The CA 19-9 Antigen test was performed using the Elle [employer] Unicel DXI paramagnetic particle chemiluminescent immunoassay method. Results obtained with different assay methods or kits cannot be used interchangeably. Performed By: #### 2 4108-3 ####[facility] LABCLIA [id number] [facility] [id number] [place] [address] [place] Comprehensive metabolic 2000 panelOrdered By: Elizabeth Yu on 01-03-2024 Albumin [Mass/Vol] 3.9 g/dL 3.9 - 4.9 g/dL [facility] ALP [Catalytic activity/Vol] 175 U/L High 38 - 113 U/L [facility] ALT [Catalytic activity/Vol] 14 U/L 10 - 54 U/L [facility] Anion gap [Moles/Vol] 6 mmol/L Low 8 - 15 mmol/L [facility] AST [Catalytic activity/Vol] 13 U/L Low 14 - 40 U/L [facility] Bilirubin [Mass/Vol] 0.5 mg/dL 0.2 - 1 .3 mg/dL [facility] Calcium [Mass/Vol] 10.3 mg/dL High 8.5 - 10. 2 mg/dL [facility] Chloride [Moles/Vol] 103 mmol/L 98 - 10 7 mmol/L [facility] CO2 [Moles/Vol] 26 mmol/L 22 - 30 mmol/L [facility] Creatinine [Mass/Vol] 0.85 mg/dL 0.73 - 1.22 mg/dL [facility] GFR/1.73 sq M.predicted among non-blacks MDRD (S/P/Bld) [Vol rate/Area] 92 mL/min/{1.73_m2} - PINF [facility] Comment on above: Estimated Glomerular [...] 169 mg/dL High 74 - 99 mg/dL [facility] Comment on above: The Japanese Diabete s Association (ADA) provides guidance for [...] Standards of Medical Care in Diabetes 2016, [employer] Diabetes Association. Diabetes Care. 2016.39(Suppl 1). Interpretation and review of laboratory results Abnormal [facility] Potassium [Moles/Vol] 4.4 mmol/L 3.7 - 5.1 mmol/L [facility] Protein [Mass/Vol] 6.8 g/dL 6.3 - 8.0 g/dL [facility] Sodium [Moles/Vol] 135 mmol/L Low 136 - 144 mmol/L [facility] Urea nitrogen [Mass/Vol] 16 mg/dL 9 - 24 mg/dL [facility] Comprehensive metabolic 2000 panelon 01-03-2024 Albumin [Mass/Vol] 3.9 g/dL Normal 3.9-4.9 [facility] Comment on above: Order Comment: Noemí hoff Type: BLOOD SPECIMENOrdering Facility: [facility] Address: [address] [place] [address] Performed By: #### 2 4323-8 ####[facility] LABCLIA [id number] [place] [address] ALP [Catalytic activity/Vol] 175 U/L High 38-113 [facility] Comment on above: Order Comment: Noemí hoff Type: BLOOD SPECIMENOrdering Facility: [facility] Address: [address] [place] [address] Performed By: #### 2 4323-8 ####[facility] LABCLIA [id number] [place] [address] ALT [Catalytic activity/Vol] 14 U/L Normal 10-54 [facility] Comment on above: Order Comment: Speci men Type: BLOOD SPECIMENOrdering Facility: [facility] Address: [address] [place] [address] Performed By: #### 2 4323-8 ####[facility] LABCLIA [id number] [place] [address] Anion gap [Moles/Vol] 6 mmol/L Low 8-15 [facility] Comment on above: Order Comment: Speci men Type: BLOOD SPECIMENOrdering Facility: [facility] Address: [address] [place] [address] Performed By: #### 2 4323-8 ####[facility] LABCLIA [id number] [place] [address] AST [Catalytic activity/Vol] 13 U/L Low 14-40 [facility] Comment on above: Order Comment: Speci men Type: BLOOD SPECIMENOrdering Facility: [facility] Address: [address] [place] [address] Performed By: #### 2 4323-8 ####[facility] LABCLIA [id number] [place] [address] Bilirubin [Mass/Vol] 0.5 mg/dL Normal 0.2-1.3 [facility] Comment on above: Order Comment: Speci men Type: BLOOD SPECIMENOrdering Facility: [facility] Address: [address] [place] [address] Performed By: #### 2 4323-8 ####[facility] LABCLIA [id number] [place] [address] Calcium [Mass/Vol] 10.3 mg/dL High 8.5-10.2 [facility] Comment on above: Order Comment: Speci men Type: BLOOD SPECIMENOrdering Facility: [facility] Address: [address] [place] [address] Performed By: #### 2 4323-8 ####[facility] LABCLIA [id number] [place] [address] Chloride [Moles/Vol] 103 mmol/L Normal 98-107 [facility] Comment on above: Order Comment: Speci men Type: BLOOD SPECIMENOrdering Facility: [facility] Address: [address] [place] [address] Performed By: #### 2 4323-8 ####[facility] LABCLIA [id number] [place] [address] CO2 [Moles/Vol] 26 mmol/L Normal 22-30 [facility] Comment on above: Order Comment: Speci men Type: BLOOD SPECIMENOrdering Facility: [facility] Address: [address] [place] [address] Performed By: #### 2 4323-8 ####[facility] LABCLIA [id number] [place] [address] Creatinine [Mass/Vol] 0.85 mg/dL Normal 0.73-1.22 [facility] Comment on above: Order Comment: Speci men Type: BLOOD SPECIMENOrdering Facility: [facility] Address: [address] [place] [address] Performed By: #### 2 4323-8 ####[facility] LABCLIA [id number] [place] [address] Creatinine and Glomerular filtration rate.predicted panel (S/P/Bld) 92 mL/min/1.73m??? Normal >=60 [facility] Comment on above: Order Comment: Speci men Type: BLOOD SPECIMENOrdering Facility: [facility] Address: [address] [place] [address] Result Comment: Kathy mated Glomerular Filtration Rate [...] actual GFR. Performed By: #### 2 4323-8 ####[facility] LABCLIA [id number] [place] [address] Glucose [Mass/Vol] 169 mg/dL High 74-99 [facility] Comment on above: Order Comment: Speci men Type: BLOOD SPECIMENOrdering Facility: [facility] Address: [address] [place] [address] Result Comment: The [place] Diabetes Association (ADA) provides guidance for cutoff [...] Standards of Medical Care in Diabetes 2016, [place] Diabetes Association. Diabetes Care. 2016.39(Suppl 1). Performed By: #### 2 4323-8 ####[facility] LABCLIA [id number] [place] [address] Potassium [Moles/Vol] 4.4 mmol/L Normal 3.7-5.1 [facility] Comment on above: Order Comment: Noemí hoff Type: BLOOD SPECIMENOrdering Facility: [facility] Address: [address] [place] [address] Performed By: #### 2 4323-8 ####[facility] LABCLIA [id number] [place] [address] Protein [Mass/Vol] 6.8 g/dL Normal 6.3-8.0 [facility] Comment on above: Order Comment: Speci men Type: BLOOD SPECIMENOrdering Facility: [facility] Address: [address] [place] [address] Performed By: #### 2 4323-8 ####[facility] LABCLIA [id number] [place] [address] Sodium [Moles/Vol] 135 mmol/L Low 136-144 [facility] Comment on above: Order Comment: Speci men Type: BLOOD SPECIMENOrdering Facility: [facility] Address: [address] [place], [place] [address] Performed By: #### 2 4323-8 ####[facility] LABCLIA [id number] [place] [address] Urea nitrogen [Mass/Vol] 16 mg/dL Normal 9-24 [facility] Comment on above: Order Comment: Speci men Type: BLOOD SPECIMENOrdering Facility: [facility] Address: [address] [place] [address] Performed By: #### 2 4323-8 ####[facility] LABCLIA [id number] [place] [address] CNPNon 01-02-2024 CNPN Normal [facility] [id number] 12-29-2023 [id number] HNO ID: [id number] Author: AYAH HOWE RN Service: ? Author Type: Registered Nurse Type: [id number] Filed: 12/29/2023 12:32 Note Text: After Placement [...] follow up with your ordering physician for supervisor intermediates, regular maintenance of your port. [facility] Imaging and Radiology Service [facility] 7:30 AM to 4:30 PM [phone] After hours/weekends: call your primary care physician or go to the ED [facility] Mon-Mon 7:30 AM to 4:00 PM [phone]: or ext [phone] After hours/weekends: For interventional radiology: call the interventional radiologist construction project administrator , ask for pager [phone] For all other radiology calls: call the radiologist construction project administrator , ask for pager [phone] [facility] Mon-Mon 8:00 AM to 5:00 PM [phone] After hours/weekends: call your primary care physician or go to the ED [facility] 9:00 AM to 5:00 PM [phone] After hours/weekends: call your primary care physician or go to the ED [facility] 8:00 AM to 5:00 PM [phone] After hours/weekends: call your primary care physician or go to the ED [facility] Mon-Mon 7:00 AM to 4:30 PM [phone] After hours/weekends: call your primary care physician or go to the ED [facility] 7:00 AM to 3:30 PM [phone] After hours/weekends: call your prim (more content not included)... Normal [facility] BRIEF OP NOTon 12-29-2023 BRIEF OP NOT HNO ID: [id number] Author: JHNONY MORGAN MD Service: Radiology Author Type: Physician Type: Brief Op Note Filed: 12/29/2023 12:08 Note Text: OPERATIVE/PROCEDURE REPORT LOG ID: [id number] SURGERY/PROCEDURE DATE: 12/29/2023 INCISION/PROCEDURE START TIME: 10:59 AM INCISION CLOSE/PROCEDURE END TIME: 11:48 AM SURGEON(S)/PROCEDURALIST( S) AND SEARCH OPTIMIZATION ANALYST(S): Surgeon(s) and Role: * Jhonny Morgan MD [...] Implant Name Type Inv. Item Serial No. Bottom Precipitator Operator Lot No. LRB No. Used Action POWER PORT 8F SINGLE LUMEN VENOUS Port [employer] [id number] Left 1 Implanted DRAINS: None COMPLICATIONS: None CLOSURE TECHNIQUE: Primary PARTICIPATION IN SURGERY/PROCEDURE: I/primary surgeon/proceduralist performed the procedure with assistance. SIGNATURE: Jhonny Morgan MD PATIENT NAME: Trinity Perry DATE: December 29, 2023 TIME: 12:06 PM [facility] HISTORY PHYSICALon HISTORY PHYSICAL HNO ID: [id number] Author: JHONNY MORGAN MD Service: Radiology Author [...] DATE: December 29, 2023 TIME: 10:14 AM [facility] IR CVC TUNNELED W/PORT REMOV [facility] 12-29-2023 IR CVC TUNNELED W/PORT REMOVAL * * *Final Report* * * DATE OF EXAM: Dec 29 2023 12:03PM [facility] 7473 - IR CVC TUNNELED W/PORT [...] was made at (more content not included)... [facility] IR FLU GD [place] CVA PLACEon IR FLU GD [place] CVA PL[place] * * *Final Report* * * DATE OF EXAM: Dec 29 2023 12:03PM [facility] 7444 - IR FLU GD [place] [...] at the si (more content not included)... [facility] IR PORTOCATH PLACEMENTon IR PORTOCATH PLACEMENT * * *Final Report* * * DATE OF EXAM: Dec 29 2023 12:03PM [facility] 8966 - IR PORTOCATH PLACEMENT / [...] at the sit (more content not included)... [facility] VASCULAR ACCESS GUIDEo n 12-29-2023 IR US VASCULAR ACCESS GUIDE * * *Final Report* * * DATE OF EXAM: Dec 29 2023 12:03PM [facility] 7765 - [facility] VASCULAR ACCESS GUIDE / PROCEDURE [...] made at th (more content not included)... [facility] NURSING PROGon 12-29-2023 NURSING PROG HNO ID: [id number] Author: SUNNY PAULA RN Service: Nursing Author [...] (RECOMMENDATION): None Electronically Signed By: Sunny Paula [facility] SURGICAL PATHOLOGYon 024 CASE REPORT [facility] Comment on above: Order Comment: Noemí hoff Type: TISSUE SPECIMEN [facility] Address: [address] [place] [address] Result Comment: Surg ical Pathology Report Case: [id number] Authorizing Provider: Cathy, Collected: 12/29/2023 11:43 AM MD Jhonny Ordering Location: [facility] Radiology Received: 12/29/2023 12:40 PM Procedure Pathologist: Sha Reyes MD Specimen: Hardware/Device/Foreign Body Performed By: #### S #### [facility] CLIA [id number] [address] [place] [address] [place] [address] [place] CLINICAL HISTORY Potentially leaking catheter in a venous ported catheter [facility] Comment on above: Order Comment: Specmack hoff Type: TISSUE SPECIMEN [facility]: [facility] Address: [address] [place] [address] Performed By: #### S #### [facility] CLIA [id number] [address] [place] [address] FINAL DIAGNOSIS [facility] Comment on above: Order Comment: Speci men Type: TISSUE SPECIMEN Ordering [facility]: [facility] Address: [address] [place] [address] Result Comment: A. U nspecified site, device removal: -Mediport with attached catheter (gross examination only). KOURTNEY/RSA 01/01/2024 Performed By: #### S #### [facility] CLIA [id number] [address] [place] [address] FINAL PERFORMING LAB [facility] Comment on above: Order Comment: Speci men Type: TISSUE SPECIMEN Ordering Facility: [facility] Address: [address] [place] [address] Result Comment: Diag nostic interpretation performed at [facility], [address] [place] [address] CLIA# [id number] Plant Equipment Engineer: Gilbert Gray M.D. Performed By: #### S #### [facility] CLIA [id number] [address] [place] [address] OF [place] GROSS DESCRIPTION [facility] Comment on above: Order Comment: Speci men Type: TISSUE SPECIMEN Ordering [facility]: [facility] Address: [address] [place] [address] Result Comment: A. H ardware/Device/Foreign Body Received fresh labeled hardware/device/foreign body is a Mediport (2.8 x 2.4 x 1.6 cm) with attached catheter (23 cm in length by 0.3 cm in diameter). The following inscription is noted CT Bard 2303 . No tissue is present or submitted. This case is reviewed with Dr. Ballesteros. Gross examination only. Gross examination performed at [facility], [address] [place] [address] CLIA#[id number] [facility] January 01, 2024 11:39 AM Performed By: #### S #### [facility] CLIA [id number] [address] [facility] [id number] [place], [place] [id number] [place] Yoko 12-27-2023 CNPN Telephone (AVXRPR) ----- TRINITY PERRY ([id number]) 1950 M Date Time Provider Department 12/27/23 ADINA SCHMITZ AVXRPR During your visit today, we recorded the following information about you: Adina Schmitz RN 12/27/2023 12:17 PM Signed You are scheduled for a Port Removal, On 12/29/2023. You are to arrive at 09:00 am and Report to [facility]: [facility]: Radiology Outpatient Desk [id number] You can expect to be here for [...] Labs: Lab-work needs to be drawn? No.. 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 Private car. You will need a responsible adult to accompany you to and from the procedure. 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 _ Allergies As of Date: 12/27/2023 (No Known Allergies) Date Reviewed: 12/13/2023 Reviewed by: Greta Wetzel PA-C - Fully Assessed Reason for Visit: Radiology Pre Procedure Instructions [8466] Prescriptions as of 12/27/2023 - midodrine (PROAMATINE) [...] [A41.9] 03/09/2020 03/13/2020 Postprocedural intraabdominal abscess [T81.43XA*03/20/2020 supervisor intermediates current use of anticoagulant [Z79.01] 04/07/2020 Deep [...] Encounter Status:Closed by [facility]23 [facility] Telephone (AVXRPR) ----- TRINITY PERRY ([id number]) 1950 M Date Time Provider Department 12/26/23 [...] [A41.9] 03/09/2020 03/13/2020 Postprocedural intraabdominal abscess [T81.43XA*03/20/2020 supervisor intermediates current use of anticoagulant [Z79.01] 04/07/2020 Deep [...] underlying condition w*06/07/2023 Encounter Status:Closed by LUISA CAMERNO on 12/26/23 [facility] 12-25-2023 [facility] Telephone (AVXRPR) ----- TRINITY PERRY ([id number]) 1950 [place] Date Time Provider Department 12/25/23 [...] [A41.9] 03/09/2020 03/13/2020 Postprocedural intraabdominal abscess [T81.43XA*03/20/2020 detention current use of anticoagulant [Z79.01] 04/07/2020 Deep [...] Encounter Status:Closed by DONNELL SWENSON on 12/25/23 [facility] CBC W Auto Differential pane l (Bld)on 12-11-2023 Basophils (Bld) [#/Vol] [facility] Basophils/100 WBC (Bld) 0.4 % [facility] Differential cell count method Nom (Bld) Auto [facility] Eosinophils (Bld) [#/Vol] 0.04 10*3/uL [facility] Eosinophils/100 WBC (Bld) 0.8 % [facility] Erythrocyte distribution width (RBC) [Ratio] 16.3 % High 11.5 - 15.0 % [facility] Hematocrit (Bld) [Volume fraction] 34.5 % Low 39.0 - 51.0 % [facility] Hemoglobin (Bld) [Mass/Vol] 11.0 g/dL Low 13.0 - 17.0 g/dL [facility] Immature granulocytes (Bld) [#/Vol] [facility] Immature granulocytes/100 WBC (Bld) 0.4 % [facility] Interpretation and review of laboratory results Abnormal [facility] Lymphocytes (Bld) [#/Vol] 1.76 10*3/uL [facility] Lymphocytes/100 WBC (Bld) 35.3 % [facility] MCH (RBC) [Entitic mass] 30.0 pg 26.0 - 34.0 pg [facility] MCHC (RBC) [Mass/Vol] 31.9 g/dL 30.5 - 36.0 g/dL [facility] MCV (RBC) [Entitic vol] 94.0 fL 80.0 - 100.0 fL [facility] Monocytes (Bld) [#/Vol] 0.70 10*3/uL [facility] Monocytes/100 WBC (Bld) 14.1 % [facility] Neutrophils (Bld) [#/Vol] 2.44 10*3/uL [facility] Neutrophils/100 WBC (Bld) 49.0 % [facility] Nucleated RBC (Bld) [#/Vol] NINF [facility] Nucleated RBC/100 WBC (Bld) [Ratio] 0.0 % /100 WBC [facility] Platelet mean volume (Bld) [Entitic vol] 9.5 fL 9.0 - 12.7 fL [facility] Platelets (Bld) [#/Vol] 266 10*3/uL [facility] RBC (Bld) [#/Vol] 3.67 10*6/uL Low 4.20 - 6.0 0 m/uL [facility] WBC (Bld) [#/Vol] 4.98 10*3/uL [facility] Basophils (Bld) [#/Vol] 10*3/uL Normal <0.11 [facility] Comment on above: Order Comment: Speci men Type: BLOOD SPECIMENOrdering Facility: [facility] Address: [address] [place] [address] Performed By: #### 5 7021-8 ####[facility] LABCLIA [id number] [place] [address] Basophils/100 WBC (Bld) 0.4 % Normal [facility] Comment on above: Order Comment: Speci men Type: BLOOD SPECIMENOrdering Facility: [facility] Address: [address] [place] [address] Performed By: #### 5 7021-8 ####[facility] LABCLIA [id number] [place] [address] Differential cell count method Nom (Bld) Auto Normal [facility] Comment on above: Order Comment: Speci men Type: BLOOD SPECIMENOrdering Facility: [facility] Address: [address] [place] [address] Performed By: #### 5 7021-8 ####[facility] LABCLIA [id number] [place] [address] Eosinophils (Bld) [#/Vol] 0.04 10*3/uL Normal <0.46 [facility] Comment on above: Order Comment: Speci men Type: BLOOD SPECIMENOrdering Facility: [facility] Address: [address] [place] [address] Performed By: #### 5 7021-8 ####[facility] LABCLIA [id number] [place] [address] Eosinophils/100 WBC (Bld) 0.8 % Normal [facility] Comment on above: Order Comment: Speci men Type: BLOOD SPECIMENOrdering Facility: [facility] Address: [address] [place] [address] Performed By: #### 5 7021-8 ####[facility] LABCLIA [id number] [place] [address] Erythrocyte distribution width (RBC) [Ratio] 16.3 % High 11.5-15.0 [facility] Comment on above: Order Comment: Speci men Type: BLOOD SPECIMENOrdering Facility: [facility] Address: [address] [place] [address] Performed By: #### 5 7021-8 ####[facility] LABCLIA [id number] [place] [address] Hematocrit (Bld) [Volume fraction] 34.5 % Low 39.0-51.0 [facility] Comment on above: Order Comment: Speci men Type: BLOOD SPECIMENOrdering Facility: [facility] Address: [address] [place] [address] Performed By: #### 5 7021-8 ####[facility] LABCLIA [id number] [place] [address] Hemoglobin (Bld) [Mass/Vol] 11.0 g/dL Low 13.0-17.0 [facility] Comment on above: Order Comment: Speci men Type: BLOOD SPECIMENOrdering Facility: [facility] Address: [address] [place] [address] Performed By: #### 5 7021-8 ####[facility] LABCLIA [id number] [place] [address] Immature granulocytes (Bld) [#/Vol] 10*3/uL Normal <0.10 [facility] Comment on above: Order Comment: Speci men Type: BLOOD SPECIMENOrdering Facility: [facility] Address: [address] [place] [address] Performed By: #### 5 7021-8 ####[facility] LABCLIA [id number] [place] [address] Immature granulocytes/100 WBC (Bld) 0.4 % Normal [facility] Comment on above: Order Comment: Speci men Type: BLOOD SPECIMENOrdering Facility: [facility] Address: [address] [place] [address] Performed By: #### 5 7021-8 ####[facility] LABCLIA [id number] [place] [address] Lymphocytes (Bld) [#/Vol] 1.76 10*3/uL Normal 1.00-4.00 [facility] Comment on above: Order Comment: Speci men Type: BLOOD SPECIMENOrdering Facility: [facility] Address: [address] [place] [address] Performed By: #### 5 7021-8 ####[facility] LABCLIA [id number] [place] [address] Lymphocytes/100 WBC (Bld) 35.3 % Normal [facility] Comment on above: Order Comment: Speci men Type: BLOOD SPECIMENOrdering Facility: [facility] Address: [address] [place] [address] Performed By: #### 5 7021-8 ####[facility] LABCLIA [id number] [place] [address] MCH (RBC) [Entitic mass] 30.0 pg Normal 26.0-34.0 [facility] Comment on above: Order Comment: Speci men Type: BLOOD SPECIMENOrdering Facility: [facility] Address: [address] [place] [address] Performed By: #### 5 7021-8 ####[facility] LABCLIA [id number] [place] [address] MCHC (RBC) [Mass/Vol] 31.9 g/dL Normal 30.5-36.0 [facility] Comment on above: Order Comment: Speci men Type: BLOOD SPECIMENOrdering Facility: [facility] Address: [address] [place] [address] Performed By: #### 5 7021-8 ####[facility] LABCLIA [id number] [place] [address] MCV (RBC) [Entitic vol] 94.0 fL Normal 80.0-100.0 [facility] Comment on above: Order Comment: Speci men Type: BLOOD SPECIMENOrdering Facility: [facility] Address: [address] [place] [address] Performed By: #### 5 7021-8 ####[facility] LABCLIA [id number] [place] [address] Monocytes (Bld) [#/Vol] 0.70 10*3/uL Normal <0.87 [facility] Comment on above: Order Comment: Speci men Type: BLOOD SPECIMENOrdering Facility: [facility] Address: [address] [place] [address] Performed By: #### 5 7021-8 ####[facility] LABCLIA [id number] [place] [address] Monocytes/100 WBC (Bld) 14.1 % Normal [facility] Comment on above: Order Comment: Speci men Type: BLOOD SPECIMENOrdering Facility: [facility] Address: [address] [place] [address] Performed By: #### 5 7021-8 ####[facility] LABCLIA [id number] [place] [address] Neutrophils (Bld) [#/Vol] 2.44 10*3/uL Normal 1.45-7.50 [facility] Comment on above: Order Comment: Speci men Type: BLOOD SPECIMENOrdering Facility: [facility] Address: [address] [place] [address] Performed By: #### 5 7021-8 ####[facility] LABCLIA [id number] [place] [address] Neutrophils/100 WBC (Bld) 49.0 % Normal [facility] Comment on above: Order Comment: Speci men Type: BLOOD SPECIMENOrdering Facility: [facility] Address: [address] [place] [address] Performed By: #### 5 7021-8 ####[facility] LABCLIA [id number] [place] [address] Nucleated RBC (Bld) [#/Vol] 10*3/uL Normal <0.01 [facility] Comment on above: Order Comment: Speci men Type: BLOOD SPECIMENOrdering Facility: [facility] Address: [address] [place] [address] Performed By: #### 5 7021-8 ####[facility] LABCLIA [id number] [place] [address] Nucleated RBC/100 WBC (Bld) [Ratio] 0.0 /100 WBC Normal [facility] Comment on above: Order Comment: Speci men Type: BLOOD SPECIMENOrdering Facility: [facility] Address: [address] [place] [address] Performed By: #### 5 7021-8 ####[facility] LABCLIA [id number] [place] [address] Platelet mean volume (Bld) [Entitic vol] 9.5 fL Normal 9.0-12.7 [facility] Comment on above: Order Comment: Speci men Type: BLOOD SPECIMENOrdering Facility: [facility] Address: [address] [place] [address] Performed By: #### 5 7021-8 ####[facility] LABCLIA [id number] [place] [address] Platelets (Bld) [#/Vol] 266 10*3/uL Normal 150-400 [facility] Comment on above: Order Comment: Speci men Type: BLOOD SPECIMENOrdering Facility: [facility] Address: [address] [place] [address] Performed By: #### 5 7021-8 ####[facility] LABIA [id number] [place] [address] RBC (Bld) [#/Vol] 3.67 10*6/uL Low 4.20-6.00 [facility] Comment on above: Order Comment: Speci men Type: BLOOD SPECIMENOrdering Facility: [facility] Address: [address] [place] [address] Performed By: #### 5 7021-8 ####[facility] LABIA [id number] [place] [address] WBC (Bld) [#/Vol] 4.98 10*3/uL Normal 3.70-11.00 [facility] Comment on above: Order Comment: Speci men Type: BLOOD SPECIMENOrdering Facility: [facility] Address: [address] [place] [address] Performed By: #### 5 7021-8 ####[facility] LABIA [id number] [place] [address] CNOVSPon 12-11-2023 CNOVSP Normal [facility] Comprehensive metabolic 2000 panelOrdered By: Je Elias on 12-11-2023 Albumin [Mass/Vol] 3.9 g/dL 3.9 - 4.9 g/dL [facility] ALP [Catalytic activity/Vol] 158 U/L High 38 - 113 U/L [facility] ALT [Catalytic activity/Vol] 16 U/L 10 - 54 U/L [facility] Anion gap [Moles/Vol] 8 mmol/L 8 - 15 mmol/L [facility] AST [Catalytic activity/Vol] 14 U/L 14 - 40 U/L [facility] Bilirubin [Mass/Vol] 0.5 mg/dL 0.2 - 1 .3 mg/dL [facility] Calcium [Mass/Vol] 10.4 mg/dL High 8.5 - 10. 2 mg/dL [facility] Chloride [Moles/Vol] 104 mmol/L 98 - 10 7 mmol/L [facility] CO2 [Moles/Vol] 25 mmol/L 22 - 30 mmol/L [facility] Creatinine [Mass/Vol] 0.95 mg/dL 0.73 - 1.22 mg/dL [facility] GFR/1.73 sq M.predicted among non-blacks MDRD (S/P/Bld) [Vol rate/Area] 85 mL/min/{1.73_m2} - PINF [facility] Comment on above: Estimated Glomerular [...] 127 mg/dL High 74 - 99 mg/dL [facility] Comment on above: The [employer] Diabete s Association (ADA) provides guidance for [...] Standards of Medical Care in Diabetes 2016, [employer] Diabetes Association. Diabetes Care. 2016.39(Suppl 1). Interpretation and review of laboratory results Abnormal [facility] Potassium [Moles/Vol] 4.5 mmol/L 3.7 - 5.1 mmol/L [facility] Protein [Mass/Vol] 6.9 g/dL 6.3 - 8.0 g/dL [facility] Sodium [Moles/Vol] 137 mmol/L 136 - 144 mmol/L [facility] Urea nitrogen [Mass/Vol] 21 mg/dL 9 - 24 mg/dL [facility] Comprehensive metabolic 2000 panelon 12-11-2023 Albumin [Mass/Vol] 3.9 g/dL Normal 3.9-4.9 [facility] Comment on above: Order Comment: Speci men Type: BLOOD SPECIMENOrdering Facility: [facility] Address: [address] [place] [address] Performed By: #### 2 4323-8 ####[facility] LABCLIA [id number] [place] [address] ALP [Catalytic activity/Vol] 158 U/L High 38-113 [facility] Comment on above: Order Comment: Speci men Type: BLOOD SPECIMENOrdering Facility: [facility] Address: [address] [place] [address] Performed By: #### 2 4323-8 ####[facility] LABCLIA [id number] [place] [address] ALT [Catalytic activity/Vol] 16 U/L Normal 10-54 [facility] Comment on above: Order Comment: Speci men Type: BLOOD SPECIMENOrdering Facility: [facility] Address: [address] [place] [address] Performed By: #### 2 4323-8 ####[facility] LABCLIA [id number] [place] [address] Anion gap [Moles/Vol] 8 mmol/L Normal 8-15 [facility] Comment on above: Order Comment: Speci men Type: BLOOD SPECIMENOrdering Facility: [facility] Address: [address] [place] [address] Performed By: #### 2 4323-8 ####[facility] LABCLIA [id number] [place] [address] AST [Catalytic activity/Vol] 14 U/L Normal 14-40 [facility] Comment on above: Order Comment: Speci men Type: BLOOD SPECIMENOrdering Facility: [facility] Address: [address] [place] [address] Performed By: #### 2 4323-8 ####[facility] LABCLIA [id number] [place] [address] Bilirubin [Mass/Vol] 0.5 mg/dL Normal 0.2-1.3 [facility] Comment on above: Order Comment: Speci men Type: BLOOD SPECIMENOrdering Facility: [facility] Address: [address] [place] [address] Performed By: #### 2 4323-8 ####[facility] LABCLIA [id number] [place] [address] Calcium [Mass/Vol] 10.4 mg/dL High 8.5-10.2 [facility] Comment on above: Order Comment: Speci men Type: BLOOD SPECIMENOrdering Facility: [facility] Address: [address] [place] [address] Performed By: #### 2 4323-8 ####[facility] LABCLIA [id number] [place] [address] Chloride [Moles/Vol] 104 mmol/L Normal 98-107 [facility] Comment on above: Order Comment: Speci men Type: BLOOD SPECIMENOrdering Facility: [facility] Address: [address] [place] [address] Performed By: #### 2 4323-8 ####[facility] LABCLIA [id number] [place] [address] CO2 [Moles/Vol] 25 mmol/L Normal 22-30 [facility] Comment on above: Order Comment: Speci men Type: BLOOD SPECIMENOrdering Facility: [facility] Address: [address] [place] [address] Performed By: #### 2 4323-8 ####[facility] LABCLIA [id number] [place] [address] Creatinine [Mass/Vol] 0.95 mg/dL Normal 0.73-1.22 [facility] Comment on above: Order Comment: Noemí hoff Type: BLOOD SPECIMENOrdering Facility: [facility] Address: [address] [place], [place] [address] Performed By: #### 2 4323-8 ####[facility] LABCLIA [id number] [place] [address] Creatinine and Glomerular filtration rate.predicted panel (S/P/Bld) 85 mL/min/1.73m??? Normal >=60 [facility] Comment on above: Order Comment: Noemí hoff Type: BLOOD SPECIMENOrdering Facility: [facility] Address: [address] [place] [address] Result Comment: Kathy mated Glomerular Filtration Rate [...] actual GFR. Performed By: #### 2 4323-8 ####[facility] LABCLIA [id number] [place] [address] Glucose [Mass/Vol] 127 mg/dL High 74-99 [facility] Comment on above: Order Comment: Noemí hoff Type: BLOOD SPECIMENOrdering Facility: [facility] Address: [address] [place], [place] [address] Result Comment: The [place] Diabetes Association (ADA) provides guidance for cutoff [...] Standards of Medical Care in Diabetes 2016, [employer] Diabetes Association. Diabetes Care. 2016.39(Suppl 1). Performed By: #### 2 4323-8 ####[facility] LABCLIA [id number] [place] [address] Potassium [Moles/Vol] 4.5 mmol/L Normal 3.7-5.1 [facility] Comment on above: Order Comment: Speci men Type: BLOOD SPECIMENOrdering Facility: [facility] Address: [address] [place] [address] Performed By: #### 2 4323-8 ####[facility] LABCLIA [id number] [place] [address] Protein [Mass/Vol] 6.9 g/dL Normal 6.3-8.0 [facility] Comment on above: Order Comment: Speci men Type: BLOOD SPECIMENOrdering Facility: [facility] Address: [address] [place] [address] Performed By: #### 2 4323-8 ####[facility] LABCLIA [id number] [place] [address] Sodium [Moles/Vol] 137 mmol/L Normal 136-144 [facility] Comment on above: Order Comment: Speci men Type: BLOOD SPECIMENOrdering Facility: [facility] Address: [address] [place] [address] Performed By: #### 2 4323-8 ####[facility] LABCLIA [id number] [place] [address] Urea nitrogen [Mass/Vol] 21 mg/dL Normal 9-24 [facility] Comment on above: Order Comment: Speci men Type: BLOOD SPECIMENOrdering Facility: [facility] Address: [address] [place] [address] Performed By: #### 2 4323-8 ####[facility] LABCLIA [id number] [place] [address] CNPNon 12-05-2023 CNPN Normal [facility] CNPNon 11-28-2023 [facility] CBC W Auto Differential pane l (Bld)on 11-20-2023 Basophils (Bld) [#/Vol] 0.03 10*3/uL [facility] Basophils/100 WBC (Bld) 0.7 % [facility] Differential cell count method Nom (Bld) Auto [facility] Eosinophils (Bld) [#/Vol] 0.07 10*3/uL [facility] Eosinophils/100 WBC (Bld) 1.6 % [facility] Erythrocyte distribution width (RBC) [Ratio] 16.7 % High 11.5 - 15.0 % [facility] Hematocrit (Bld) [Volume fraction] 33.9 % Low 39.0 - 51.0 % [facility] Hemoglobin (Bld) [Mass/Vol] 10.8 g/dL Low 13.0 - 17.0 g/dL [facility] Immature granulocytes (Bld) [#/Vol] [facility] Immature granulocytes/100 WBC (Bld) 0.2 % [facility] Interpretation and review of laboratory results Abnormal [facility] Lymphocytes (Bld) [#/Vol] 1.87 10*3/uL [facility] Lymphocytes/100 WBC (Bld) 43.6 % [facility] MCH (RBC) [Entitic mass] 30.4 pg 26.0 - 34.0 pg [facility] MCHC (RBC) [Mass/Vol] 31.9 g/dL 30.5 - 36.0 g/dL [facility] MCV (RBC) [Entitic vol] 95.5 fL 80.0 - 100.0 fL [facility] Monocytes (Bld) [#/Vol] 0.58 10*3/uL [facility] Monocytes/100 WBC (Bld) 13.5 % [facility] Neutrophils (Bld) [#/Vol] 1.73 10*3/uL [facility] Neutrophils/100 WBC (Bld) 40.4 % [facility] Nucleated RBC (Bld) [#/Vol] [facility] Nucleated RBC/100 WBC (Bld) [Ratio] 0.0 % /100 WBC [facility] Platelet mean volume (Bld) [Entitic vol] 9.4 fL 9.0 - 12.7 fL [facility] Platelets (Bld) [#/Vol] 245 10*3/uL [facility] RBC (Bld) [#/Vol] 3.55 10*6/uL Low 4.20 - 6.0 0 m/uL [facility] WBC (Bld) [#/Vol] 4.29 10*3/uL [facility] Basophils (Bld) [#/Vol] 0.03 10*3/uL Normal <0.11 [facility] Comment on above: Order Comment: Speci men Type: BLOOD SPECIMENOrdering Facility: [facility] Address: [address] [place] [address] Performed By: #### 5 7021-8 ####[facility] LABCLIA [id number] [place] [address] Basophils/100 WBC (Bld) 0.7 % Normal [facility] Comment on above: Order Comment: Speci men Type: BLOOD SPECIMENOrdering Facility: [facility] Address: [address] [place] [address] Performed By: #### 5 7021-8 ####[facility] LABCLIA [id number] [place] [address] Differential cell count method Nom (Bld) Auto Normal [facility] Comment on above: Order Comment: Speci men Type: BLOOD SPECIMENOrdering Facility: [facility] Address: [address] [place] [address] Performed By: #### 5 7021-8 ####[facility] LABCLIA [id number] [place] [address] Eosinophils (Bld) [#/Vol] 0.07 10*3/uL Normal <0.46 [facility] Comment on above: Order Comment: Speci men Type: BLOOD SPECIMENOrdering Facility: [facility] Address: [address] [place] [address] Performed By: #### 5 7021-8 ####[facility] LABCLIA [id number] [place] [address] Eosinophils/100 WBC (Bld) 1.6 % Normal [facility] Comment on above: Order Comment: Speci men Type: BLOOD SPECIMENOrdering Facility: [facility] Address: [address] [place] [address] Performed By: #### 5 7021-8 ####[facility] LABCLIA [id number] [place] [address] Erythrocyte distribution width (RBC) [Ratio] 16.7 % High 11.5-15.0 [facility] Comment on above: Order Comment: Speci men Type: BLOOD SPECIMENOrdering Facility: [facility] Address: [address] [place] [address] Performed By: #### 5 7021-8 ####[facility] LABCLIA [id number] [place] [address] Hematocrit (Bld) [Volume fraction] 33.9 % Low 39.0-51.0 [facility] Comment on above: Order Comment: Speci men Type: BLOOD SPECIMENOrdering Facility: [facility] Address: [address] [place] [address] Performed By: #### 5 7021-8 ####[facility] LABCLIA [id number] [place] [address] Hemoglobin (Bld) [Mass/Vol] 10.8 g/dL Low 13.0-17.0 [facility] Comment on above: Order Comment: Speci men Type: BLOOD SPECIMENOrdering Facility: [facility] Address: [address] [place] [address] Performed By: #### 5 7021-8 ####[facility] LABCLIA [id number] [place] [address] Immature granulocytes (Bld) [#/Vol] 10*3/uL Normal <0.10 [facility] Comment on above: Order Comment: Speci men Type: BLOOD SPECIMENOrdering Facility: [facility] Address: [address] [place] [address] Performed By: #### 5 7021-8 ####[facility] LABCLIA [id number] [place] [address] Immature granulocytes/100 WBC (Bld) 0.2 % Normal [facility] Comment on above: Order Comment: Speci men Type: BLOOD SPECIMENOrdering Facility: [facility] Address: [address] [place] [address] Performed By: #### 5 7021-8 ####[facility] LABCLIA [id number] [place] [address] Lymphocytes (Bld) [#/Vol] 1.87 10*3/uL Normal 1.00-4.00 [facility] Comment on above: Order Comment: Speci men Type: BLOOD SPECIMENOrdering Facility: [facility] Address: [address] [place] [address] Performed By: #### 5 7021-8 ####[facility] LABCLIA [id number] [place] [address] Lymphocytes/100 WBC (Bld) 43.6 % Normal [facility] Comment on above: Order Comment: Speci men Type: BLOOD SPECIMENOrdering Facility: [facility] Address: [address] [place] [address] Performed By: #### 5 7021-8 ####[facility] LABCLIA [id number] [place] [address] MCH (RBC) [Entitic mass] 30.4 pg Normal 26.0-34.0 [facility] Comment on above: Order Comment: Speci men Type: BLOOD SPECIMENOrdering Facility: [facility] Address: [address] [place] [address] Performed By: #### 5 7021-8 ####[facility] LABCLIA [id number] [place] [address] MCHC (RBC) [Mass/Vol] 31.9 g/dL Normal 30.5-36.0 [facility] Comment on above: Order Comment: Speci men Type: BLOOD SPECIMENOrdering Facility: [facility] Address: [address] [place] [address] Performed By: #### 5 7021-8 ####[facility] LABCLIA [id number] [place] [address] MCV (RBC) [Entitic vol] 95.5 fL Normal 80.0-100.0 [facility] Comment on above: Order Comment: Speci men Type: BLOOD SPECIMENOrdering Facility: [facility] Address: [address] [place] [address] Performed By: #### 5 7021-8 ####[facility] LABCLIA [id number] [place] [address] Monocytes (Bld) [#/Vol] 0.58 10*3/uL Normal <0.87 [facility] Comment on above: Order Comment: Speci men Type: BLOOD SPECIMENOrdering Facility: [facility] Address: [address] [place] [address] Performed By: #### 5 7021-8 ####[facility] LABCLIA [id number] [place] [address] Monocytes/100 WBC (Bld) 13.5 % Normal [facility] Comment on above: Order Comment: Speci men Type: BLOOD SPECIMENOrdering Facility: [facility] Address: [address] [place] [address] Performed By: #### 5 7021-8 ####[facility] LABCLIA [id number] [place] [address] Neutrophils (Bld) [#/Vol] 1.73 10*3/uL Normal 1.45-7.50 [facility] Comment on above: Order Comment: Speci men Type: BLOOD SPECIMENOrdering Facility: [facility] Address: [address] [place] [address] Performed By: #### 5 7021-8 ####[facility] LABCLIA [id number] [place] [address] Neutrophils/100 WBC (Bld) 40.4 % Normal [facility] Comment on above: Order Comment: Speci men Type: BLOOD SPECIMENOrdering Facility: [facility] Address: [address] [place] [address] Performed By: #### 5 7021-8 ####[facility] LABCLIA [id number] [place] [address] Nucleated RBC (Bld) [#/Vol] 10*3/uL Normal <0.01 [facility] Comment on above: Order Comment: Speci men Type: BLOOD SPECIMENOrdering Facility: [facility] Address: [address] [place] [address] Performed By: #### 5 7021-8 ####[facility] LABCLIA [id number] [place] [address] Nucleated RBC/100 WBC (Bld) [Ratio] 0.0 /100 WBC Normal [facility] Comment on above: Order Comment: Speci men Type: BLOOD SPECIMENOrdering Facility: [facility] Address: [address] [place] [address] Performed By: #### 5 7021-8 ####[facility] LABCLIA [id number] [place] [address] Platelet mean volume (Bld) [Entitic vol] 9.4 fL Normal 9.0-12.7 [facility] Comment on above: Order Comment: Speci men Type: BLOOD SPECIMENOrdering Facility: [facility] Address: [address] [place] [address] Performed By: #### 5 7021-8 ####[facility] LABCLIA [id number] [place] [address] Platelets (Bld) [#/Vol] 245 10*3/uL Normal 150-400 [facility] Comment on above: Order Comment: Speci men Type: BLOOD SPECIMENOrdering Facility: [facility] Address: [address] [place] [address] Performed By: #### 5 7021-8 ####[facility] LABCLIA [id number] [place] [address] RBC (Bld) [#/Vol] 3.55 10*6/uL Low 4.20-6.00 [facility] Comment on above: Order Comment: Speci men Type: BLOOD SPECIMENOrdering Facility: [facility] Address: [address] [place] [address] Performed By: #### 5 7021-8 ####[facility] LABIA [id number] [place] [address] WBC (Bld) [#/Vol] 4.29 10*3/uL Normal 3.70-11.00 [facility] Comment on above: Order Comment: Speci men Type: BLOOD SPECIMENOrdering Facility: [facility] Address: [address] [place] [address] Performed By: #### 5 7021-8 ####[facility] LABIA [id number] [place] [address] CNOVSPon 11-20-2023 CNOVSP Normal [facility] Cancer Ag19-9 SerPl-aCncon 0 11-20-2023 Cancer Ag 19-9 Qn 328.0 [arb'U]/mL High <36.0 [facility] Comment on above: Order Comment: Speci men Type: BLOOD SPECIMENOrdering Facility: [facility] Address: [address] [place] [address] Result Comment: [facility] er antigen 19-9 test is used as an aid in monitoring response to treatment or recurrence in patients with established pancreatic, hepatobiliary, or gastrointestinal malignancies. Clinical correlation is required.The CA 19-9 Antigen test was performed using the [employer] DXI paramagnetic particle chemiluminescent immunoassay method. Results obtained with different assay methods or kits cannot be used interchangeably. Performed By: #### 2 4108-3 ####[facility] LABCLIA [id number] [place] [id number] [place] Comprehensive metabolic 2000 panelOrdered By: Marina Bailey on 11-20-2023 Albumin [Mass/Vol] 3.8 g/dL Low 3.9 - 4.9 g/dL [facility] ALP [Catalytic activity/Vol] 132 U/L High 38 - 113 U/L [facility] ALT [Catalytic activity/Vol] 15 U/L 10 - 54 U/L [facility] Anion gap [Moles/Vol] 8 mmol/L 8 - 15 mmol/L [facility] AST [Catalytic activity/Vol] 17 U/L 14 - 40 U/L [facility] Bilirubin [Mass/Vol] 0.5 mg/dL 0.2 - 1 .3 mg/dL [facility] Calcium [Mass/Vol] 10.4 mg/dL High 8.5 - 10. 2 mg/dL [facility] Chloride [Moles/Vol] 104 mmol/L 98 - 10 7 mmol/L [facility] CO2 [Moles/Vol] 25 mmol/L 22 - 30 mmol/L [facility] Creatinine [Mass/Vol] 0.70 mg/dL Low 0.73 - 1.22 mg/dL [facility] GFR/1.73 sq M.predicted among non-blacks MDRD (S/P/Bld) [Vol rate/Area] 98 mL/min/{1.73_m2} - PINF [facility] Comment on above: Estimated Glomerular [...] 134 mg/dL High 74 - 99 mg/dL [facility] Comment on above: The Japanese Diabete s Association (ADA) provides guidance for [...] Standards of Medical Care in Diabetes 2016, [employer] Diabetes Association. Diabetes Care. 2016.39(Suppl 1). Interpretation and review of laboratory results Abnormal [facility] Potassium [Moles/Vol] 4.3 mmol/L 3.7 - 5.1 mmol/L [facility] Protein [Mass/Vol] 6.8 g/dL 6.3 - 8.0 g/dL [facility] Sodium [Moles/Vol] 137 mmol/L 136 - 144 mmol/L [facility] Urea nitrogen [Mass/Vol] 13 mg/dL 9 - 24 mg/dL [facility] Comprehensive metabolic 2000 panelon 11-20-2023 Albumin [Mass/Vol] 3.8 g/dL Low 3.9-4.9 [facility] Comment on above: Order Comment: Speci men Type: BLOOD SPECIMENOrdering Facility: [facility] Address: [address] [place] [address] Performed By: #### 2 4323-8 ####[facility] LABCLIA [id number] [place] [address] ALP [Catalytic activity/Vol] 132 U/L High 38-113 [facility] Comment on above: Order Comment: Speci men Type: BLOOD SPECIMENOrdering Facility: [facility] Address: [address] [place] [address] Performed By: #### 2 4323-8 ####[facility] LABCLIA [id number] [place] [address] ALT [Catalytic activity/Vol] 15 U/L Normal 10-54 [facility] Comment on above: Order Comment: Speci men Type: BLOOD SPECIMENOrdering Facility: [facility] Address: [address] [place] [address] Performed By: #### 2 4323-8 ####[facility] LABCLIA [id number] [place] [address] Anion gap [Moles/Vol] 8 mmol/L Normal 8-15 [facility] Comment on above: Order Comment: Speci men Type: BLOOD SPECIMENOrdering Facility: [facility] Address: [address] [place] [address] Performed By: #### 2 4323-8 ####[facility] LABCLIA [id number] [place] [address] AST [Catalytic activity/Vol] 17 U/L Normal 14-40 [facility] Comment on above: Order Comment: Speci men Type: BLOOD SPECIMENOrdering Facility: [facility] Address: [address] [place] [address] Performed By: #### 2 4323-8 ####[facility] LABCLIA [id number] [place] [address] Bilirubin [Mass/Vol] 0.5 mg/dL Normal 0.2-1.3 [facility] Comment on above: Order Comment: Speci men Type: BLOOD SPECIMENOrdering Facility: [facility] Address: [address] [place] [address] Performed By: #### 2 4323-8 ####[facility] LABCLIA [id number] [place] [address] Calcium [Mass/Vol] 10.4 mg/dL High 8.5-10.2 [facility] Comment on above: Order Comment: Speci men Type: BLOOD SPECIMENOrdering Facility: [facility] Address: [address] [place] [address] Performed By: #### 2 4323-8 ####[facility] LABCLIA [id number] [place] [address] Chloride [Moles/Vol] 104 mmol/L Normal 98-107 [facility] Comment on above: Order Comment: Speci men Type: BLOOD SPECIMENOrdering Facility: [facility] Address: [address] [place] [address] Performed By: #### 2 4323-8 ####[facility] LABCLIA [id number] [place] [address] CO2 [Moles/Vol] 25 mmol/L Normal 22-30 [facility] Comment on above: Order Comment: Speci men Type: BLOOD SPECIMENOrdering Facility: [facility] Address: [address] [place] [address] Performed By: #### 2 4323-8 ####[facility] LABCLIA [id number] [place] [address] Creatinine [Mass/Vol] 0.70 mg/dL Low 0.73-1.22 [facility] Comment on above: Order Comment: Speci men Type: BLOOD SPECIMENOrdering Facility: [facility] Address: [address] [place] [address] Performed By: #### 2 4323-8 ####[facility] LABCLIA [id number] [place] [address] Creatinine and Glomerular filtration rate.predicted panel (S/P/Bld) 98 mL/min/1.73m??? Normal >=60 [facility] Comment on above: Order Comment: Speci men Type: BLOOD SPECIMENOrdering Facility: [facility] Address: [address] [place] [address] Result Comment: Kathy mated Glomerular Filtration Rate [...] actual GFR. Performed By: #### 2 4323-8 ####[facility] LABCLIA [id number] [place] [address] Glucose [Mass/Vol] 134 mg/dL High 74-99 [facility] Comment on above: Order Comment: Speci men Type: BLOOD SPECIMENOrdering Facility: [facility] Address: [address] [place] [address] Result Comment: The [place] Diabetes Association (ADA) provides guidance for cutoff [...] Standards of Medical Care in Diabetes 2016, [place] Diabetes Association. Diabetes Care. 2016.39(Suppl 1). Performed By: #### 2 4323-8 ####[facility] LABCLIA [id number] [place] [address] Potassium [Moles/Vol] 4.3 mmol/L Normal 3.7-5.1 [facility] Comment on above: Order Comment: Speci men Type: BLOOD SPECIMENOrdering Facility: [facility] Address: [address] [place] [address] Performed By: #### 2 4323-8 ####[facility] LABCLIA [id number] [place] [address] Protein [Mass/Vol] 6.8 g/dL Normal 6.3-8.0 [facility] Comment on above: Order Comment: Speci men Type: BLOOD SPECIMENOrdering Facility: [facility] Address: [address] [place] [address] Performed By: #### 2 4323-8 ####[facility] LABCLIA [id number] [place] [address] Sodium [Moles/Vol] 137 mmol/L Normal 136-144 [facility] Comment on above: Order Comment: Speci men Type: BLOOD SPECIMENOrdering Facility: [facility] Address: [address] [id number] Performed By: #### 2 4323-8 ####[facility] LABCLIA [id number] [place] [address] Urea nitrogen [Mass/Vol] 13 mg/dL Normal 9-24 [facility] Comment on above: Order Comment: Speci men Type: BLOOD SPECIMENOrdering Facility: [facility] Address: [address] [id number] Performed By: #### 2 4323-8 ####[facility] LABCLIA [id number] [place] [address] CT Abdomen and Pelvis W cont rast Kodi 11-19-2023 Interpretation and review of laboratory results Abnormal [facility] Radiology Result ACTIONABLE Abnormal [facility] Comment on above: This report contains an [...] be communicated with the ordering provider via [employer] staff message or phone message by Imaging [...] any questions regarding this interpretation, please call [phone]. If you are unable to reach us at the number above, please feel free to contact [facility] at [phone]. DIVISION OF RADIOLOGY * * *Final Report* * * DATE OF EXAM: Nov 17 2023 11:16AM [facility] 0530 - CT ABD/PEL W IVCON / [...] CT scan report for the abdomen findings. 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 DIVISION OF RADIOLOGY Provider, [facility] - 11/19/2023 * * *Final Report* * * DATE OF EXAM: Nov 17 2023 11:16AM [facility] 0530 - CT ABD/PEL W IVCON / [...] CT scan report for the abdomen findings. 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 IMPRESSION IMPRESSION: [...] be communicated with the ordering provider via [employer] staff message or phone message by Imaging [...] any questions regarding this interpretation, please call [phone]. If you are unable to reach us at the number above, please feel free to contact [facility] eRadiology at [phone]. [facility] CT Chest W contrast [place]odi IMPRESSION: [...] any questions regarding this interpretation, please call [phone]. If you are unable to reach us at the number above, please feel free to contact [facility] eRadiology at [phone]. DIVISION OF RADIOLOGY * * *Final Report* * * DATE OF EXAM: Nov 17 2023 11:16AM [facility] 0539 - CT CHEST W IVCON / [...] CT scan report for the abdomen findings. 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 DIVISION OF RADIOLOGY Provider, [facility] - 11/19/2023 * * *Final Report* * * DATE OF EXAM: Nov 17 2023 11:16AM [facility] 0539 - CT CHEST W IVCON / [...] CT scan report for the abdomen findings. 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 IMPRESSION IMPRESSION: [...] any questions regarding this interpretation, please call [phone]. If you are unable to reach us at the number above, please feel free to contact [facility] eRadiology at [phone]. [facility] CT Chest W contrast IVOrdere d By: [facility] Provider on 11-19-[address] [facility] [address] ABD/PEL W IVCONon 024 CT ABD/PEL W IVCON Invalid Interpretation Code [facility] CT CHEST W IVCONon 4 CT CHEST W IVCON Normal [place] Count includes the [facility] No Panel Informationon 11-16 Radiology Study observation (narrative) [facility] CNOVSPon 11-02-2023 CNOVSP Normal [facility] CBC W Auto Differential pane l (Bld)on 10-31-2023 Basophils (Bld) [#/Vol] 0.03 10*3/uL [facility] Basophils/100 WBC (Bld) 0.6 % [facility] Differential cell count method Nom (Bld) Auto [facility] Eosinophils (Bld) [#/Vol] 0.04 10*3/uL [facility] Eosinophils/100 WBC (Bld) 0.8 % [facility] Erythrocyte distribution width (RBC) [Ratio] 17.6 % High 11.5 - 15.0 % [facility] Hematocrit (Bld) [Volume fraction] 34.1 % Low 39.0 - 51.0 % [facility] Hemoglobin (Bld) [Mass/Vol] 10.7 g/dL Low 13.0 - 17.0 g/dL [facility] Immature granulocytes (Bld) [#/Vol] 0.03 10*3/uL [facility] MARYVALEF [facility] Immature granulocytes/100 WBC (Bld) 0.6 % [facility] Interpretation and review of laboratory results Abnormal [facility] Lymphocytes (Bld) [#/Vol] 1.46 10*3/uL [facility] Lymphocytes/100 WBC (Bld) 30.2 % [facility] MCH (RBC) [Entitic mass] 30.2 pg 26.0 - 34.0 pg [facility] MCHC (RBC) [Mass/Vol] 31.4 g/dL 30.5 - 36.0 g/dL [facility] MCV (RBC) [Entitic vol] 96.3 fL 80.0 - 100.0 fL [facility] Monocytes (Bld) [#/Vol] 0.61 10*3/uL [facility] MARYVALEF [facility] Monocytes/100 WBC (Bld) 12.6 % [facility] Neutrophils (Bld) [#/Vol] 2.66 10*3/uL [facility] Neutrophils/100 WBC (Bld) 55.2 % [facility] Nucleated RBC (Bld) [#/Vol] [facility] MARYVALEF [facility] Nucleated RBC/100 WBC (Bld) [Ratio] 0.0 % /100 WBC [facility] Platelet mean volume (Bld) [Entitic vol] 9.2 fL 9.0 - 12.7 fL [facility] Platelets (Bld) [#/Vol] 296 10*3/uL [facility] RBC (Bld) [#/Vol] 3.54 10*6/uL Low 4.20 - 6.0 0 m/uL [facility] WBC (Bld) [#/Vol] 4.83 10*3/uL [facility] Basophils (Bld) [#/Vol] 0.03 10*3/uL Normal <0.11 [facility] Comment on above: Order Comment: Speci men Type: BLOOD SPECIMENOrdering Facility: [facility] Address: [address] [place] [address] Performed By: #### 5 7021-8 ####[facility] LABCLIA [id number] [place] [address] Basophils/100 WBC (Bld) 0.6 % Normal [facility] Comment on above: Order Comment: Speci men Type: BLOOD SPECIMENOrdering Facility: [facility] Address: [address] [place] [address] Performed By: #### 5 7021-8 ####[facility] LABCLIA [id number] [place] [address] Differential cell count method Nom (Bld) Auto Normal [facility] Comment on above: Order Comment: Speci men Type: BLOOD SPECIMENOrdering Facility: [facility] Address: [address] [place] [address] Performed By: #### 5 7021-8 ####[facility] LABCLIA [id number] [place] [address] Eosinophils (Bld) [#/Vol] 0.04 10*3/uL Normal <0.46 [facility] Comment on above: Order Comment: Speci men Type: BLOOD SPECIMENOrdering Facility: [facility] Address: [address] [place] [address] Performed By: #### 5 7021-8 ####[facility] LABCLIA [id number] [place] [address] Eosinophils/100 WBC (Bld) 0.8 % Normal [facility] Comment on above: Order Comment: Speci men Type: BLOOD SPECIMENOrdering Facility: [facility] Address: [address] [place] [address] Performed By: #### 5 7021-8 ####[facility] LABCLIA [id number] [place] [address] Erythrocyte distribution width (RBC) [Ratio] 17.6 % High 11.5-15.0 [facility] Comment on above: Order Comment: Speci men Type: BLOOD SPECIMENOrdering Facility: [facility] Address: [address] [place] [address] Performed By: #### 5 7021-8 ####[facility] LABCLIA [id number] [place] [address] Hematocrit (Bld) [Volume fraction] 34.1 % Low 39.0-51.0 [facility] Comment on above: Order Comment: Speci men Type: BLOOD SPECIMENOrdering Facility: [facility] Address: [address] [place] [address] Performed By: #### 5 7021-8 ####[facility] LABCLIA [id number] [place] [address] Hemoglobin (Bld) [Mass/Vol] 10.7 g/dL Low 13.0-17.0 [facility] Comment on above: Order Comment: Speci men Type: BLOOD SPECIMENOrdering Facility: [facility] Address: [address] [place] [address] Performed By: #### 5 7021-8 ####[facility] LABCLIA [id number] [place] [address] Immature granulocytes (Bld) [#/Vol] 0.03 10*3/uL Normal <0.10 [facility] Comment on above: Order Comment: Speci men Type: BLOOD SPECIMENOrdering Facility: [facility] Address: [address] [place] [address] Performed By: #### 5 7021-8 ####[facility] LABCLIA [id number] [place] [address] Immature granulocytes/100 WBC (Bld) 0.6 % Normal [facility] Comment on above: Order Comment: Speci men Type: BLOOD SPECIMENOrdering Facility: [facility] Address: [address] [place] [address] Performed By: #### 5 7021-8 ####[facility] LABCLIA [id number] [place] [address] Lymphocytes (Bld) [#/Vol] 1.46 10*3/uL Normal 1.00-4.00 [facility] Comment on above: Order Comment: Speci men Type: BLOOD SPECIMENOrdering Facility: [facility] Address: [address] [place] [address] Performed By: #### 5 7021-8 ####[facility] LABCLIA [id number] [place] [address] Lymphocytes/100 WBC (Bld) 30.2 % Normal [facility] Comment on above: Order Comment: Speci men Type: BLOOD SPECIMENOrdering Facility: [facility] Address: [address] [place] [address] Performed By: #### 5 7021-8 ####[facility] LABIA [id number] [place] [address] MCH (RBC) [Entitic mass] 30.2 pg Normal 26.0-34.0 [facility] Comment on above: Order Comment: Speci men Type: BLOOD SPECIMENOrdering Facility: [facility] Address: [address] [place] [address] Performed By: #### 5 7021-8 ####[facility] LABCLIA [id number] [place] [address] MCHC (RBC) [Mass/Vol] 31.4 g/dL Normal 30.5-36.0 [facility] Comment on above: Order Comment: Speci men Type: BLOOD SPECIMENOrdering Facility: [facility] Address: [address] [place] [address] Performed By: #### 5 7021-8 ####[facility] LABIA [id number] [place] [address] MCV (RBC) [Entitic vol] 96.3 fL Normal 80.0-100.0 [facility] Comment on above: Order Comment: Speci men Type: BLOOD SPECIMENOrdering Facility: [facility] Address: [address] [place] [address] Performed By: #### 5 7021-8 ####[facility] LABCLIA [id number] [place] [address] Monocytes (Bld) [#/Vol] 0.61 10*3/uL Normal <0.87 [facility] Comment on above: Order Comment: Speci men Type: BLOOD SPECIMENOrdering Facility: [facility] Address: [address] [place] [address] Performed By: #### 5 7021-8 ####[facility] LABCLIA [id number] [place] [address] Monocytes/100 WBC (Bld) 12.6 % Normal [facility] Comment on above: Order Comment: Speci men Type: BLOOD SPECIMENOrdering Facility: [facility] Address: [address] [place] [address] Performed By: #### 5 7021-8 ####[facility] LABCLIA [id number] [place] [address] Neutrophils (Bld) [#/Vol] 2.66 10*3/uL Normal 1.45-7.50 [facility] Comment on above: Order Comment: Speci men Type: BLOOD SPECIMENOrdering Facility: [facility] Address: [address] [place] [address] Performed By: #### 5 7021-8 ####[facility] LABCLIA [id number] [place] [address] Neutrophils/100 WBC (Bld) 55.2 % Normal [facility] Comment on above: Order Comment: Speci men Type: BLOOD SPECIMENOrdering Facility: [facility] Address: [address] [place] [address] Performed By: #### 5 7021-8 ####[facility] LABCLIA [id number] [place] [address] Nucleated RBC (Bld) [#/Vol] 10*3/uL Normal <0.01 [facility] Comment on above: Order Comment: Speci men Type: BLOOD SPECIMENOrdering Facility: [facility] Address: [address] [place] [address] Performed By: #### 5 7021-8 ####[facility] LABCLIA [id number] [place] [address] Nucleated RBC/100 WBC (Bld) [Ratio] 0.0 /100 WBC Normal [facility] Comment on above: Order Comment: Speci men Type: BLOOD SPECIMENOrdering Facility: [facility] Address: [address] [place] [address] Performed By: #### 5 7021-8 ####[facility] LABCLIA [id number] [place] [address] Platelet mean volume (Bld) [Entitic vol] 9.2 fL Normal 9.0-12.7 [facility] Comment on above: Order Comment: Speci men Type: BLOOD SPECIMENOrdering Facility: [facility] Address: [address] [place] [address] Performed By: #### 5 7021-8 ####[facility] LABCLIA [id number] [place] [address] Platelets (Bld) [#/Vol] 296 10*3/uL Normal 150-400 [facility] Comment on above: Order Comment: Speci men Type: BLOOD SPECIMENOrdering Facility: [facility] Address: [address] [place] [address] Performed By: #### 5 7021-8 ####[facility] LABCLIA [id number] [place] [address] RBC (Bld) [#/Vol] 3.54 10*6/uL Low 4.20-6.00 [facility] Comment on above: Order Comment: Speci men Type: BLOOD SPECIMENOrdering Facility: [facility] Address: [address] [place] [address] Performed By: #### 5 7021-8 ####[facility] LABCLIA [id number] [place] [address] WBC (Bld) [#/Vol] 4.83 10*3/uL Normal 3.70-11.00 [facility] Comment on above: Order Comment: Speci men Type: BLOOD SPECIMENOrdering Facility: [facility] Address: [address] [place] [address] Performed By: #### 5 7021-8 ####[facility] LABCLIA [id number] [place] [address] CNOVSPon 10-31-2023 CNOVSP Normal [facility] Cancer Ag19-9 SerPl-aCncon 0 10-31-2023 Cancer Ag 19-9 Qn 606.0 [arb'U]/mL High <36.0 [facility] Comment on above: Order Comment: Speci men Type: BLOOD SPECIMENOrdering Facility: [facility] Address: [address] [place] [address] Result Comment: [facility] er antigen 19-9 test is used as an aid in monitoring response to treatment or recurrence in patients with established pancreatic, hepatobiliary, or gastrointestinal malignancies. Clinical correlation is required.The CA 19-9 Antigen test was performed using the [employer] DXI paramagnetic particle chemiluminescent immunoassay method. Results obtained with different assay methods or kits cannot be used interchangeably. Performed By: #### 2 4108-3 ####[facility] LABCLIA [id number] [place] [id number] [facility] Comprehensive metabolic 2000 panelOrdered By: Elizabeth Yu on 10-31-2023 Albumin [Mass/Vol] 3.7 g/dL Low 3.9 - 4.9 g/dL [facility] ALP [Catalytic activity/Vol] 169 U/L High 38 - 113 U/L [facility] ALT [Catalytic activity/Vol] 31 U/L 10 - 54 U/L [facility] Anion gap [Moles/Vol] 8 mmol/L 8 - 15 mmol/L [facility] AST [Catalytic activity/Vol] 23 U/L 14 - 40 U/L [facility] Bilirubin [Mass/Vol] 0.5 mg/dL 0.2 - 1 .3 mg/dL [facility] Calcium [Mass/Vol] 10.7 mg/dL High 8.5 - 10. 2 mg/dL [facility] Chloride [Moles/Vol] 101 mmol/L 98 - 10 7 mmol/L [facility] CO2 [Moles/Vol] 27 mmol/L 22 - 30 mmol/L [facility] Creatinine [Mass/Vol] 0.73 mg/dL 0.73 - 1.22 mg/dL [facility] GFR/1.73 sq M.predicted among non-blacks MDRD (S/P/Bld) [Vol rate/Area] 97 mL/min/{1.73_m2} - PINF [facility] Comment on above: Estimated Glomerular [...] 141 mg/dL High 74 - 99 mg/dL [facility] Comment on above: The [employer] Diabete s Association (ADA) provides guidance for [...] Standards of Medical Care in Diabetes 2016, [employer]. Diabetes Care. 2016.39(Suppl 1). Interpretation and review of laboratory results Abnormal [facility] Potassium [Moles/Vol] 4.5 mmol/L 3.7 - 5.1 mmol/L [facility] Protein [Mass/Vol] 7.5 g/dL 6.3 - 8.0 g/dL [facility] Sodium [Moles/Vol] 136 mmol/L 136 - 144 mmol/L [facility] Urea nitrogen [Mass/Vol] 13 mg/dL 9 - 24 mg/dL [facility] Comprehensive metabolic 2000 panelon 10-31-2023 Albumin [Mass/Vol] 3.7 g/dL Low 3.9-4.9 [facility] Comment on above: Order Comment: Speci men Type: BLOOD SPECIMENOrdering Facility: [facility] Address: [address] [place] [address] Performed By: #### 2 4323-8 ####[facility] LABCLIA [id number] [place] [address] ALP [Catalytic activity/Vol] 169 U/L High 38-113 [facility] Comment on above: Order Comment: Speci men Type: BLOOD SPECIMENOrdering Facility: [facility] Address: [address] [place] [address] Performed By: #### 2 4323-8 ####[facility] LABCLIA [id number] [place] [address] ALT [Catalytic activity/Vol] 31 U/L Normal 10-54 [facility] Comment on above: Order Comment: Speci men Type: BLOOD SPECIMENOrdering Facility: [facility] Address: [address] [place] [address] Performed By: #### 2 4323-8 ####[facility] LABCLIA [id number] [place] [address] Anion gap [Moles/Vol] 8 mmol/L Normal 8-15 [facility] Comment on above: Order Comment: Speci men Type: BLOOD SPECIMENOrdering Facility: [facility] Address: [address] [place] [address] Performed By: #### 2 4323-8 ####[facility] LABCLIA [id number] [place] [address] AST [Catalytic activity/Vol] 23 U/L Normal 14-40 [facility] Comment on above: Order Comment: Speci men Type: BLOOD SPECIMENOrdering Facility: [facility] Address: [address] [place] [address] Performed By: #### 2 4323-8 ####[facility] LABCLIA [id number] [place] [address] Bilirubin [Mass/Vol] 0.5 mg/dL Normal 0.2-1.3 [facility] Comment on above: Order Comment: Speci men Type: BLOOD SPECIMENOrdering Facility: [facility] Address: [address] [place] [address] Performed By: #### 2 4323-8 ####[facility] LABCLIA [id number] [place] [address] Calcium [Mass/Vol] 10.7 mg/dL High 8.5-10.2 [facility] Comment on above: Order Comment: Speci men Type: BLOOD SPECIMENOrdering Facility: [facility] Address: [address] [place] [address] Performed By: #### 2 4323-8 ####[facility] LABCLIA [id number] [place] [address] Chloride [Moles/Vol] 101 mmol/L Normal 98-107 [facility] Comment on above: Order Comment: Speci men Type: BLOOD SPECIMENOrdering Facility: [facility] Address: [address] [place] [address] Performed By: #### 2 4323-8 ####[facility] LABCLIA [id number] [place] [address] CO2 [Moles/Vol] 27 mmol/L Normal 22-30 [facility] Comment on above: Order Comment: Speci men Type: BLOOD SPECIMENOrdering Facility: [facility] Address: [address] [place] [address] Performed By: #### 2 4323-8 ####[facility] LABCLIA [id number] [place] [address] Creatinine [Mass/Vol] 0.73 mg/dL Normal 0.73-1.22 [facility] Comment on above: Order Comment: Noemí hoff Type: BLOOD SPECIMENOrdering Facility: [facility] Address: [address] [place], [place] [address] Performed By: #### 2 4323-8 ####[facility] LABCLIA [id number] [place] [address] Creatinine and Glomerular filtration rate.predicted panel (S/P/Bld) 97 mL/min/1.73m??? Normal >=60 [facility] Comment on above: Order Comment: Noemí hoff Type: BLOOD SPECIMENOrdering Facility: [facility] Address: [address] [place] [address] Result Comment: Kathy mated Glomerular Filtration Rate [...] actual GFR. Performed By: #### 2 4323-8 ####[facility] LABCLIA [id number] [place] [address] Glucose [Mass/Vol] 141 mg/dL High 74-99 [facility] Comment on above: Order Comment: Noemí hoff Type: BLOOD SPECIMENOrdering Facility: [facility] Address: [address] [place], [place] [address] Result Comment: The [employer] Diabetes Association (ADA) provides guidance for cutoff [...] Standards of Medical Care in Diabetes 2016, [employer] Diabetes Association. Diabetes Care. 2016.39(Suppl 1). Performed By: #### 2 4323-8 ####[facility] LABCLIA [id number] [place] [address] Potassium [Moles/Vol] 4.5 mmol/L Normal 3.7-5.1 [facility] Comment on above: Order Comment: Speci men Type: BLOOD SPECIMENOrdering Facility: [facility] Address: [address] [place] [address] Performed By: #### 2 4323-8 ####[facility] LABCLIA [id number] [place] [address] Protein [Mass/Vol] 7.5 g/dL Normal 6.3-8.0 [facility] Comment on above: Order Comment: Speci men Type: BLOOD SPECIMENOrdering Facility: [facility] Address: [address] [place] [address] Performed By: #### 2 4323-8 ####[facility] LABCLIA [id number] [place] [address] Sodium [Moles/Vol] 136 mmol/L Normal 136-144 [facility] Comment on above: Order Comment: Speci men Type: BLOOD SPECIMENOrdering Facility: [facility] Address: [address] [place] [address] Performed By: #### 2 4323-8 ####[facility] LABCLIA [id number] [place] [address] Urea nitrogen [Mass/Vol] 13 mg/dL Normal 9-24 [facility] Comment on above: Order Comment: Speci men Type: BLOOD SPECIMENOrdering Facility: [facility] Address: [address] [place] [id number] Performed By: #### 2 4323-8 ####[facility] LABCLIA [id number] [place] [address] [facility] 10-17-2023 CNPN Normal [facility] CNPNon 10-13-2023 CNPN Normal [facility] CBC W Auto Differential pane l (Bld)on 10-11-2023 Basophils (Bld) [#/Vol] 0.04 10*3/uL [facility] Basophils/100 WBC (Bld) 0.4 % [facility] Differential cell count method Nom (Bld) Auto [facility] Eosinophils (Bld) [#/Vol] [facility] Eosinophils/100 WBC (Bld) 0.2 % [facility] Erythrocyte distribution width (RBC) [Ratio] 15.2 % High 11.5 - 15.0 % [facility] Hematocrit (Bld) [Volume fraction] 29.5 % Low 39.0 - 51.0 % [facility] Hemoglobin (Bld) [Mass/Vol] 9.6 g/dL Low 13.0 - 17.0 g/dL [facility] Immature granulocytes (Bld) [#/Vol] 0.12 10*3/uL High [facility] Immature granulocytes/100 WBC (Bld) 1.2 % [facility] Interpretation and review of laboratory results Abnormal [facility] Lymphocytes (Bld) [#/Vol] 1.53 10*3/uL [facility] Lymphocytes/100 WBC (Bld) 15.3 % [facility] MCH (RBC) [Entitic mass] 30.2 pg 26.0 - 34.0 pg [facility] MCHC (RBC) [Mass/Vol] 32.5 g/dL 30.5 - 36.0 g/dL [facility] MCV (RBC) [Entitic vol] 92.8 fL 80.0 - 100.0 fL [facility] Monocytes (Bld) [#/Vol] 0.77 10*3/uL [facility] Monocytes/100 WBC (Bld) 7.7 % [facility] Neutrophils (Bld) [#/Vol] 7.54 10*3/uL High [facility] Neutrophils/100 WBC (Bld) 75.2 % [facility] Nucleated RBC (Bld) [#/Vol] [facility] Nucleated RBC/100 WBC (Bld) [Ratio] 0.0 % /100 WBC [facility] Platelet mean volume (Bld) [Entitic vol] 10.0 fL 9.0 - 12.7 fL [facility] Platelets (Bld) [#/Vol] 196 10*3/uL [facility] RBC (Bld) [#/Vol] 3.18 10*6/uL Low 4.20 - 6.0 0 m/uL [facility] WBC (Bld) [#/Vol] 10.02 10*3/uL [facility] Basophils (Bld) [#/Vol] 0.04 10*3/uL Normal <0.11 [facility] Comment on above: Order Comment: Speci men Type: BLOOD SPECIMENOrdering Facility: [facility] Address: [address] [place] [address] Performed By: #### 5 7021-8 ####[facility] LABCLIA [id number] [place] [address] Basophils/100 WBC (Bld) 0.4 % Normal [facility] Comment on above: Order Comment: Speci men Type: BLOOD SPECIMENOrdering Facility: [facility] Address: [address] [place] [address] Performed By: #### 5 7021-8 ####[facility] LABCLIA [id number] [place] [address] Differential cell count method Nom (Bld) Auto Normal [facility] Comment on above: Order Comment: Speci men Type: BLOOD SPECIMENOrdering Facility: [facility] Address: [address] [place] [address] Performed By: #### 5 7021-8 ####[facility] LABCLIA [id number] [place] [address] Eosinophils (Bld) [#/Vol] 10*3/uL Normal <0.46 [facility] Comment on above: Order Comment: Speci men Type: BLOOD SPECIMENOrdering Facility: [facility] Address: [address] [place] [address] Performed By: #### 5 7021-8 ####[facility] LABCLIA [id number] [place] [address] Eosinophils/100 WBC (Bld) 0.2 % Normal [facility] Comment on above: Order Comment: Speci men Type: BLOOD SPECIMENOrdering Facility: [facility] Address: [address] [place] [address] Performed By: #### 5 7021-8 ####[facility] LABCLIA [id number] [place] [address] Erythrocyte distribution width (RBC) [Ratio] 15.2 % High 11.5-15.0 [facility] Comment on above: Order Comment: Speci men Type: BLOOD SPECIMENOrdering Facility: [facility] Address: [address] [place] [address] Performed By: #### 5 7021-8 ####[facility] LABIA [id number] [place] [address] Hematocrit (Bld) [Volume fraction] 29.5 % Low 39.0-51.0 [facility] Comment on above: Order Comment: Speci men Type: BLOOD SPECIMENOrdering Facility: [facility] Address: [address] [place] [address] Performed By: #### 5 7021-8 ####[facility] LABIA [id number] [place] [address] Hemoglobin (Bld) [Mass/Vol] 9.6 g/dL Low 13.0-17.0 [facility] Comment on above: Order Comment: Speci men Type: BLOOD SPECIMENOrdering Facility: [facility] Address: [address] [place] [address] Performed By: #### 5 7021-8 ####[facility] LABIA [id number] [place] [address] Immature granulocytes (Bld) [#/Vol] 0.12 10*3/uL High <0.10 [facility] Comment on above: Order Comment: Speci men Type: BLOOD SPECIMENOrdering Facility: [facility] Address: [address] [place] [address] Performed By: #### 5 7021-8 ####[facility] LABCLIA [id number] [place] [address] Immature granulocytes/100 WBC (Bld) 1.2 % Normal [facility] Comment on above: Order Comment: Speci men Type: BLOOD SPECIMENOrdering Facility: [facility] Address: [address] [place] [address] Performed By: #### 5 7021-8 ####[facility] LABCLIA [id number] [place] [address] Lymphocytes (Bld) [#/Vol] 1.53 10*3/uL Normal 1.00-4.00 [facility] Comment on above: Order Comment: Speci men Type: BLOOD SPECIMENOrdering Facility: [facility] Address: [address] [place] [address] Performed By: #### 5 7021-8 ####[facility] LABCLIA [id number] [place] [address] Lymphocytes/100 WBC (Bld) 15.3 % Normal [facility] Comment on above: Order Comment: Speci men Type: BLOOD SPECIMENOrdering Facility: [facility] Address: [address] [place] [address] Performed By: #### 5 7021-8 ####[facility] LABCLIA [id number] [place] [address] MCH (RBC) [Entitic mass] 30.2 pg Normal 26.0-34.0 [facility] Comment on above: Order Comment: Speci men Type: BLOOD SPECIMENOrdering Facility: [facility] Address: [address] [place] [address] Performed By: #### 5 7021-8 ####[facility] LABCLIA [id number] [place] [address] MCHC (RBC) [Mass/Vol] 32.5 g/dL Normal 30.5-36.0 [facility] Comment on above: Order Comment: Speci men Type: BLOOD SPECIMENOrdering Facility: [facility] Address: [address] [place] [address] Performed By: #### 5 7021-8 ####[facility] LABCLIA [id number] [place] [address] MCV (RBC) [Entitic vol] 92.8 fL Normal 80.0-100.0 [facility] Comment on above: Order Comment: Speci men Type: BLOOD SPECIMENOrdering Facility: [facility] Address: [address] [place] [address] Performed By: #### 5 7021-8 ####[facility] LABCLIA [id number] [place] [address] Monocytes (Bld) [#/Vol] 0.77 10*3/uL Normal <0.87 [facility] Comment on above: Order Comment: Speci men Type: BLOOD SPECIMENOrdering Facility: [facility] Address: [address] [place] [address] Performed By: #### 5 7021-8 ####[facility] LABCLIA [id number] [place] [address] Monocytes/100 WBC (Bld) 7.7 % Normal [facility] Comment on above: Order Comment: Speci men Type: BLOOD SPECIMENOrdering Facility: [facility] Address: [address] [place] [address] Performed By: #### 5 7021-8 ####[facility] LABCLIA [id number] [place] [address] Neutrophils (Bld) [#/Vol] 7.54 10*3/uL High 1.45-7.50 [facility] Comment on above: Order Comment: Speci men Type: BLOOD SPECIMENOrdering Facility: [facility] Address: [address] [place] [address] Performed By: #### 5 7021-8 ####[facility] LABCLIA [id number] [place] [address] Neutrophils/100 WBC (Bld) 75.2 % Normal [facility] Comment on above: Order Comment: Speci men Type: BLOOD SPECIMENOrdering Facility: [facility] Address: [address] [place] [address] Performed By: #### 5 7021-8 ####[facility] LABCLIA [id number] [place] [address] Nucleated RBC (Bld) [#/Vol] 10*3/uL Normal <0.01 [facility] Comment on above: Order Comment: Speci men Type: BLOOD SPECIMENOrdering Facility: [facility] Address: [address] [place] [address] Performed By: #### 5 7021-8 ####[facility] LABCLIA [id number] [place] [address] Nucleated RBC/100 WBC (Bld) [Ratio] 0.0 /100 WBC Normal [facility] Comment on above: Order Comment: Speci men Type: BLOOD SPECIMENOrdering Facility: [facility] Address: [address] [place] [address] Performed By: #### 5 7021-8 ####[facility] LABCLIA [id number] [place] [address] Platelet mean volume (Bld) [Entitic vol] 10.0 fL Normal 9.0-12.7 [facility] Comment on above: Order Comment: Speci men Type: BLOOD SPECIMENOrdering Facility: [facility] Address: [address] [place] [address] Performed By: #### 5 7021-8 ####[facility] LABCLIA [id number] [place] [address] Platelets (Bld) [#/Vol] 196 10*3/uL Normal 150-400 [facility] Comment on above: Order Comment: Speci men Type: BLOOD SPECIMENOrdering Facility: [facility] Address: [address] [place], [place] [address] Performed By: #### 5 7021-8 ####[facility] LABIA [id number] [place] [address] RBC (Bld) [#/Vol] 3.18 10*6/uL Low 4.20-6.00 [facility] Comment on above: Order Comment: Speci men Type: BLOOD SPECIMENOrdering Facility: [facility] Address: [address] [place], [place] [address] Performed By: #### 5 7021-8 ####[facility] LABIA [id number] [place] [address] WBC (Bld) [#/Vol] 10.02 10*3/uL Normal 3.70-11.00 [facility] Comment on above: Order Comment: Speci men Type: BLOOD SPECIMENOrdering Facility: [facility] Address: [address] [place] [address] Performed By: #### 5 7021-8 ####[facility] LABIA [id number] [place] [address] CNNURSEon 10-11-2023 CNNURSE Normal [facility] CNOVSPon 10-11-2023 CNOVSP Normal [facility] Comprehensive metabolic 2000 panelon 10-11-2023 Albumin [Mass/Vol] 2.9 g/dL Low 3.9 - 4.9 g/dL [facility] ALP [Catalytic activity/Vol] 111 U/L 38 - 113 U/L [facility] Comment on above: Results may be false ly decreased due to interference from hemolysis. Suggest reorder as clinically indicated. ALT [Catalytic activity/Vol] 18 U/L 10 - 54 U/L [facility] Comment on above: Results may be false ly increased due to interference from hemolysis. Suggest reorder as clinically indicated. Anion gap [Moles/Vol] 9 mmol/L 9 - 18 mmol/L [facility] AST [Catalytic activity/Vol] 52 U/L High 14 - 40 U/L [facility] Comment on above: Results may be false ly increased due to interference from hemolysis. Suggest reorder as clinically indicated. Bilirubin [Mass/Vol] 0.5 mg/dL 0.2 - 1 .3 mg/dL [facility] Calcium [Mass/Vol] 9.7 mg/dL 8.5 - 10. 2 mg/dL [facility] Chloride [Moles/Vol] 96 mmol/L Low 97 - 10 5 mmol/L [facility] CO2 [Moles/Vol] 23 mmol/L 22 - 30 mmol/L [facility] Creatinine [Mass/Vol] 0.71 mg/dL Low 0.73 - 1.22 mg/dL [facility] GFR/1.73 sq M.predicted among non-blacks MDRD (S/P/Bld) [Vol rate/Area] 97 mL/min/{1.73_m2} - PINF [facility] Comment on above: Estimated Glomerular [...] 158 mg/dL High 74 - 99 mg/dL [facility] Comment on above: The [employer] Diabete s Association (ADA) provides guidance for [...] Standards of Medical Care in Diabetes 2016, [employer] Diabetes Association. Diabetes Care. 2016.39(Suppl 1). Interpretation and review of laboratory results Abnormal [facility] Potassium [Moles/Vol] [facility] Comment on above: Unable to assay due to interference from hemolysis. Suggest reorder as clinically indicated. Protein [Mass/Vol] 7.0 g/dL 6.3 - 8.0 g/dL [facility] Sodium [Moles/Vol] 128 mmol/L Low 136 - 144 mmol/L [facility] Urea nitrogen [Mass/Vol] 14 mg/dL 9 - 24 mg/dL [facility] Albumin [Mass/Vol] 2.9 g/dL Low 3.9-4.9 [facility] Comment on above: Order Comment: Speci men Type: BLOOD SPECIMENOrdering Facility: [facility] Address: [address] [place] [address] Performed By: #### 2 4323-8 ####[facility] [id number] [place] [address] [place] ALP [Catalytic activity/Vol] 111 U/L Normal 38-113 [facility] Comment on above: Order Comment: Speci men Type: BLOOD SPECIMENOrdering Facility: [facility] Address: [address] [place] [address] Result Comment: Resu lts may be falsely decreased due to interference from hemolysis. Suggest reorder as clinically indicated. Performed By: #### 2 4323-8 ####[facility] [id number] [place] [address] [place] ALT [Catalytic activity/Vol] 18 U/L Normal 10-54 [facility] Comment on above: Order Comment: Speci men Type: BLOOD SPECIMENOrdering Facility: [facility] Address: [address] [place] [address] Result Comment: Resu lts may be falsely increased due to interference from hemolysis. Suggest reorder as clinically indicated. Performed By: #### 2 4323-8 ####[facility] [id number] [place] [address] [place] Anion gap [Moles/Vol] 9 mmol/L Normal 9-18 [facility] Comment on above: Order Comment: Speci men Type: BLOOD SPECIMENOrdering Facility: [facility] Address: [address] [place] [address] Performed By: #### 2 4323-8 ####[facility] LABCLIA [id number] [place] [address] [place] AST [Catalytic activity/Vol] 52 U/L High 14-40 [facility] Comment on above: Order Comment: Speci men Type: BLOOD SPECIMENOrdering Facility: [facility] Address: [address] [place] [address] Result Comment: Resu lts may be falsely increased due to interference from hemolysis. Suggest reorder as clinically indicated. Performed By: #### 2 4323-8 ####[facility] LABCLIA [id number] [place] [address] [place] Bilirubin [Mass/Vol] 0.5 mg/dL Normal 0.2-1.3 [facility] Comment on above: Order Comment: Speci men Type: BLOOD SPECIMENOrdering Facility: [facility] Address: [address] [place] [address] Performed By: #### 2 4323-8 ####[facility] LABIA [id number] [place] [address] [place] Calcium [Mass/Vol] 9.7 mg/dL Normal 8.5-10.2 [facility] Comment on above: Order Comment: Speci men Type: BLOOD SPECIMENOrdering Facility: [facility] Address: [address] [place] [address] Performed By: #### 2 4323-8 ####[facility] LABCLIA [id number] [place] [address] [place] Chloride [Moles/Vol] 96 mmol/L Low 97-105 [facility] Comment on above: Order Comment: Speci men Type: BLOOD SPECIMENOrdering Facility: [facility] Address: [address] [place] [address] Performed By: #### 2 4323-8 ####[facility] LABCLIA [id number] [place] [address] [place] CO2 [Moles/Vol] 23 mmol/L Normal 22-30 [facility] Comment on above: Order Comment: Speci men Type: BLOOD SPECIMENOrdering Facility: [facility] Address: [address] [place] [address] Performed By: #### 2 4323-8 ####[facility] LABCLIA [id number] [place] [address] [place] Creatinine [Mass/Vol] 0.71 mg/dL Low 0.73-1.22 [facility] Comment on above: Order Comment: Speci men Type: BLOOD SPECIMENOrdering Facility: [facility] Address: [address] [place] [address] Performed By: #### 2 4323-8 ####[facility] LABIA [id number] [address] [place] OF [facility] Creatinine and Glomerular filtration rate.predicted panel (S/P/Bld) 97 mL/min/1.73m??? Normal >=60 [facility] Comment on above: Order Comment: Speci men Type: BLOOD SPECIMENOrdering Facility: [facility] Address: [address] [place] [address] Result Comment: Kathy mated Glomerular Filtration Rate [...] actual GFR. Performed By: #### 2 4323-8 ####[facility] LABCLIA [id number] [place] [address] [place] Glucose [Mass/Vol] 158 mg/dL High 74-99 [facility] Comment on above: Order Comment: Speci men Type: BLOOD SPECIMENOrdering Facility: [facility] Address: [address] [place] [address] Result Comment: The [employer] Diabetes Association (ADA) provides guidance for cutoff [...] Standards of Medical Care in Diabetes 2016, [place] Diabetes Association. Diabetes Care. 2016.39(Suppl 1). Performed By: #### 2 4323-8 ####[facility] LABCLIA [id number] [place] [address] [place] Potassium [Moles/Vol] Normal [facility] Comment on above: Order Comment: Speci men Type: BLOOD SPECIMENOrdering Facility: [facility] Address: [address] [place] [address] Result Comment: Unab le to assay due to interference from hemolysis. Suggest reorder as clinically indicated. Performed By: #### 2 4323-8 ####[facility] LABCLIA [id number] [place] [address] [place] Protein [Mass/Vol] 7.0 g/dL Normal 6.3-8.0 [facility] Comment on above: Order Comment: Speci men Type: BLOOD SPECIMENOrdering Facility: [facility] Address: [address] [place] [address] Performed By: #### 2 4323-8 ####[facility] LABCLIA [id number] [place] [address] [place] Sodium [Moles/Vol] 128 mmol/L Low 136-144 [facility] [place] Comment on above: Order Comment: Speci men Type: BLOOD SPECIMENOrdering Facility: [facility] Address: [address] [place] [address] Performed By: #### 2 4323-8 ####[facility] LABCLIA [id number] [place] [address] [place] Urea nitrogen [Mass/Vol] 14 mg/dL Normal 9-24 [facility] Comment on above: Order Comment: Speci men Type: BLOOD SPECIMENOrdering Facility: [facility] Address: [address] [place] [address] Performed By: #### 2 4323-8 ####[facility] LABCLIA [id number] [place] [address] [place] UA DIP, URINE (POC)on 2023 BILIRUBIN UA (POCT) Negative Negative [facility] CLARITY UA (POCT) Slightly Cloudy [facility] COLOR UA (POCT) Yellow [facility] GLUCOSE UA (POCT) Negative Negative mg/dL [facility] Hemoglobin Ql (U) Negative Negative [facility] Interpretation and review of laboratory results Abnormal [facility] KETONE UA (POCT) Negative Negative mg/dL [facility] LEUKOCYTES UA (POCT) Trace Abnormal Negative [facility] NITRITE UA (POCT) Negative Negative [facility] PH UA (POCT) 6.5 4.5 - 8.0 [facility] Protein Ql (U) Negative Negative mg/dL [facility] SPECIFIC GRAVITY UA (POCT) 1.015 1.005 - 1.030 [facility] UROBILINOGEN UA (POCT) 0.2 Normal E.U./dL [facility] Location:[facility], [address] [place] [address] , [place], [place], [id number] [place] [address] POINT OF CARE [facility] CNPNon 10-05-2023 CNPN Normal [facility] CNPNon 10-04-2023 CNPN Normal [facility] CBC W Auto Differential pane l (Bld)on 10-03-2023 Basophils (Bld) [#/Vol] 0.04 10*3/uL [facility] MARYVALEF [facility] Basophils/100 WBC (Bld) 0.4 % [facility] Differential cell count method Nom (Bld) Auto [facility] Eosinophils (Bld) [#/Vol] NINF [facility] Eosinophils/100 WBC (Bld) 0.1 % [facility] Erythrocyte distribution width (RBC) [Ratio] 14.2 % 11.5 - 15.0 % [facility] Hematocrit (Bld) [Volume fraction] 29.5 % Low 39.0 - 51.0 % [facility] Hemoglobin (Bld) [Mass/Vol] 9.6 g/dL Low 13.0 - 17.0 g/dL [facility] Immature granulocytes (Bld) [#/Vol] 0.18 10*3/uL High [facility] Immature granulocytes/100 WBC (Bld) 1.8 % [facility] Interpretation and review of laboratory results Abnormal [facility] Lymphocytes (Bld) [#/Vol] 1.28 10*3/uL [facility] Lymphocytes/100 WBC (Bld) 13.0 % [facility] MCH (RBC) [Entitic mass] 31.4 pg 26.0 - 34.0 pg [facility] MCHC (RBC) [Mass/Vol] 32.5 g/dL 30.5 - 36.0 g/dL [facility] MCV (RBC) [Entitic vol] 96.4 fL 80.0 - 100.0 fL [facility] Monocytes (Bld) [#/Vol] 1.25 10*3/uL High [facility] Monocytes/100 WBC (Bld) 12.7 % [facility] Neutrophils (Bld) [#/Vol] 7.08 10*3/uL [facility] Neutrophils/100 WBC (Bld) 72.0 % [facility] Nucleated RBC (Bld) [#/Vol] [facility] Nucleated RBC/100 WBC (Bld) [Ratio] 0.0 % /100 WBC [facility] Platelet mean volume (Bld) [Entitic vol] 9.0 fL 9.0 - 12.7 fL [facility] Platelets (Bld) [#/Vol] 407 10*3/uL High [facility] RBC (Bld) [#/Vol] 3.06 10*6/uL Low 4.20 - 6.0 0 m/uL [facility] WBC (Bld) [#/Vol] 9.84 10*3/uL [facility] Basophils (Bld) [#/Vol] 0.04 10*3/uL Normal <0.11 [facility] Comment on above: Order Comment: Speci men Type: BLOOD SPECIMENOrdering Facility: [facility] Address: [address] [place] [address] Performed By: #### 5 7021-8 ####[facility] LABCLIA [id number] [place] [address] Basophils/100 WBC (Bld) 0.4 % Normal [facility] Comment on above: Order Comment: Speci men Type: BLOOD SPECIMENOrdering Facility: [facility] Address: [address] [place] [address] Performed By: #### 5 7021-8 ####[facility] LABCLIA [id number] [place] [address] Differential cell count method Nom (Bld) Auto Normal [facility] Comment on above: Order Comment: Speci men Type: BLOOD SPECIMENOrdering Facility: [facility] Address: [address] [place] [address] Performed By: #### 5 7021-8 ####[facility] LABCLIA [id number] [place] [address] Eosinophils (Bld) [#/Vol] 10*3/uL Normal <0.46 [facility] Comment on above: Order Comment: Speci men Type: BLOOD SPECIMENOrdering Facility: [facility] Address: [address] [place] [address] Performed By: #### 5 7021-8 ####[facility] LABCLIA [id number] [place] [address] Eosinophils/100 WBC (Bld) 0.1 % Normal [facility] Comment on above: Order Comment: Speci men Type: BLOOD SPECIMENOrdering Facility: [facility] Address: [address] [place] [address] Performed By: #### 5 7021-8 ####[facility] LABCLIA [id number] [place] [address] Erythrocyte distribution width (RBC) [Ratio] 14.2 % Normal 11.5-15.0 [facility] Comment on above: Order Comment: Speci men Type: BLOOD SPECIMENOrdering Facility: [facility] Address: [address] [place] [address] Performed By: #### 5 7021-8 ####[facility] LABCLIA [id number] [place] [address] Hematocrit (Bld) [Volume fraction] 29.5 % Low 39.0-51.0 [facility] Comment on above: Order Comment: Speci men Type: BLOOD SPECIMENOrdering Facility: [facility] Address: [address] [place] [address] Performed By: #### 5 7021-8 ####[facility] LABCLIA [id number] [place] [address] Hemoglobin (Bld) [Mass/Vol] 9.6 g/dL Low 13.0-17.0 [facility] Comment on above: Order Comment: Speci men Type: BLOOD SPECIMENOrdering Facility: [facility] Address: [address] [place] [address] Performed By: #### 5 7021-8 ####[facility] LABCLIA [id number] [place] [address] Immature granulocytes (Bld) [#/Vol] 0.18 10*3/uL High <0.10 [facility] Comment on above: Order Comment: Speci men Type: BLOOD SPECIMENOrdering Facility: [facility] Address: [address] [place] [address] Performed By: #### 5 7021-8 ####[facility] LABCLIA [id number] [place] [address] Immature granulocytes/100 WBC (Bld) 1.8 % Normal [facility] Comment on above: Order Comment: Speci men Type: BLOOD SPECIMENOrdering Facility: [facility] Address: [address] [place] [address] Performed By: #### 5 7021-8 ####[facility] LABCLIA [id number] [place] [address] Lymphocytes (Bld) [#/Vol] 1.28 10*3/uL Normal 1.00-4.00 [facility] Comment on above: Order Comment: Speci men Type: BLOOD SPECIMENOrdering Facility: [facility] Address: [address] [place] [address] Performed By: #### 5 7021-8 ####[facility] LABCLIA [id number] [place] [address] Lymphocytes/100 WBC (Bld) 13.0 % Normal [facility] Comment on above: Order Comment: Speci men Type: BLOOD SPECIMENOrdering Facility: [facility] Address: [address] [place] [address] Performed By: #### 5 7021-8 ####[facility] LABCLIA [id number] [place] [address] MCH (RBC) [Entitic mass] 31.4 pg Normal 26.0-34.0 [facility] Comment on above: Order Comment: Speci men Type: BLOOD SPECIMENOrdering Facility: [facility] Address: [address] [place] [address] Performed By: #### 5 7021-8 ####[facility] LABCLIA [id number] [place] [address] MCHC (RBC) [Mass/Vol] 32.5 g/dL Normal 30.5-36.0 [facility] Comment on above: Order Comment: Speci men Type: BLOOD SPECIMENOrdering Facility: [facility] Address: [address] [place] [address] Performed By: #### 5 7021-8 ####[facility] LABCLIA [id number] [place] [address] MCV (RBC) [Entitic vol] 96.4 fL Normal 80.0-100.0 [facility] Comment on above: Order Comment: Speci men Type: BLOOD SPECIMENOrdering Facility: [facility] Address: [address] [place] [address] Performed By: #### 5 7021-8 ####[facility] LABCLIA [id number] [place] [address] Monocytes (Bld) [#/Vol] 1.25 10*3/uL High <0.87 [facility] Comment on above: Order Comment: Speci men Type: BLOOD SPECIMENOrdering Facility: [facility] Address: [address] [place] [address] Performed By: #### 5 7021-8 ####[facility] LABCLIA [id number] [place] [address] Monocytes/100 WBC (Bld) 12.7 % Normal [facility] Comment on above: Order Comment: Speci men Type: BLOOD SPECIMENOrdering Facility: [facility] Address: [address] [place] [address] Performed By: #### 5 7021-8 ####[facility] LABCLIA [id number] [place] [address] Neutrophils (Bld) [#/Vol] 7.08 10*3/uL Normal 1.45-7.50 [facility] Comment on above: Order Comment: Speci men Type: BLOOD SPECIMENOrdering Facility: [facility] Address: [address] [place] [address] Performed By: #### 5 7021-8 ####[facility] LABCLIA [id number] [place] [address] Neutrophils/100 WBC (Bld) 72.0 % Normal [facility] Comment on above: Order Comment: Speci men Type: BLOOD SPECIMENOrdering Facility: [facility] Address: [address] [place] [address] Performed By: #### 5 7021-8 ####[facility] LABCLIA [id number] [place] [address] Nucleated RBC (Bld) [#/Vol] 10*3/uL Normal <0.01 [facility] Comment on above: Order Comment: Speci men Type: BLOOD SPECIMENOrdering Facility: [facility] Address: [address] [place] [address] Performed By: #### 5 7021-8 ####[facility] LABCLIA [id number] [place] [address] Nucleated RBC/100 WBC (Bld) [Ratio] 0.0 /100 WBC Normal [facility] Comment on above: Order Comment: Speci men Type: BLOOD SPECIMENOrdering Facility: [facility] Address: [address] [place] [address] Performed By: #### 5 7021-8 ####[facility] LABCLIA [id number] [place] [address] Platelet mean volume (Bld) [Entitic vol] 9.0 fL Normal 9.0-12.7 [facility] Comment on above: Order Comment: Speci men Type: BLOOD SPECIMENOrdering Facility: [facility] Address: [address] [place] [address] Performed By: #### 5 7021-8 ####[facility] LABCLIA [id number] [place] [address] Platelets (Bld) [#/Vol] 407 10*3/uL High 150-400 [facility] Comment on above: Order Comment: Speci men Type: BLOOD SPECIMENOrdering Facility: [facility] Address: [address] [place] [address] Performed By: #### 5 7021-8 ####[facility] LABIA [id number] [place] [address] RBC (Bld) [#/Vol] 3.06 10*6/uL Low 4.20-6.00 [facility] Comment on above: Order Comment: Speci men Type: BLOOD SPECIMENOrdering Facility: [facility] Address: [address] [place] [address] Performed By: #### 5 7021-8 ####[facility] LABCLIA [id number] [place] [address] WBC (Bld) [#/Vol] 9.84 10*3/uL Normal 3.70-11.00 [facility] Comment on above: Order Comment: Speci men Type: BLOOD SPECIMENOrdering Facility: [facility] Address: [address] [place] [address] Performed By: #### 5 7021-8 ####[facility] LABCLIA [id number] [place] [address] CNOVSPon 10-03-2023 CNOVSP Normal [facility] CNPNon 10-03-2023 CNPN Normal [facility] Cancer Ag19-9 SerPl-aCncon 0 10-03-2023 Cancer Ag 19-9 Qn 234.0 [arb'U]/mL High <36.0 [facility] Comment on above: Order Comment: Speci men Type: BLOOD SPECIMENOrdering Facility: [facility] Address: [address] [place] [address] Result Comment: [facility] er antigen 19-9 test is used as an aid in monitoring response to treatment or recurrence in patients with established pancreatic, hepatobiliary, or gastrointestinal malignancies. Clinical correlation is required.The CA 19-9 Antigen test was performed using the [employer] DXI paramagnetic particle chemiluminescent immunoassay method. Results obtained with different assay methods or kits cannot be used interchangeably. Performed By: #### 2 4108-3 ####[facility] LABCLIA [id number] [place] [address] [facility] Comprehensive metabolic 2000 panelOrdered By: Elizabeth Yu on 10-03-2023 Albumin [Mass/Vol] 3.0 g/dL Low 3.9 - 4.9 g/dL [facility] ALP [Catalytic activity/Vol] 110 U/L 38 - 113 U/L [facility] ALT [Catalytic activity/Vol] 10 U/L 10 - 54 U/L [facility] Anion gap [Moles/Vol] 8 mmol/L Low 9 - 18 mmol/L [facility] AST [Catalytic activity/Vol] 11 U/L Low 14 - 40 U/L [facility] Bilirubin [Mass/Vol] 0.6 mg/dL 0.2 - 1 .3 mg/dL [facility] Calcium [Mass/Vol] 10.4 mg/dL High 8.5 - 10. 2 mg/dL [facility] Chloride [Moles/Vol] 100 mmol/L 97 - 10 5 mmol/L [facility] CO2 [Moles/Vol] 27 mmol/L 22 - 30 mmol/L [facility] Creatinine [Mass/Vol] 0.83 mg/dL 0.73 - 1.22 mg/dL [facility] GFR/1.73 sq M.predicted among non-blacks MDRD (S/P/Bld) [Vol rate/Area] 93 mL/min/{1.73_m2} - PINF [facility] Comment on above: Estimated Glomerular [...] 167 mg/dL High 74 - 99 mg/dL [facility] Comment on above: The [employer] Diabete s Association (ADA) provides guidance for [...] Standards of Medical Care in Diabetes 2016, [place] Diabetes Association. Diabetes Care. 2016.39(Suppl 1). Interpretation and review of laboratory results Abnormal [facility] Potassium [Moles/Vol] 4.3 mmol/L 3.7 - 5.1 mmol/L [facility] Protein [Mass/Vol] 6.9 g/dL 6.3 - 8.0 g/dL [facility] Sodium [Moles/Vol] 135 mmol/L Low 136 - 144 mmol/L [facility] Urea nitrogen [Mass/Vol] 13 mg/dL 9 - 24 mg/dL [facility] Comprehensive metabolic 2000 panelon 10-03-2023 Albumin [Mass/Vol] 3.0 g/dL Low 3.9-4.9 [facility] [place] Comment on above: Order Comment: Speci men Type: BLOOD SPECIMENOrdering Facility: [facility] Address: [address] [place] [address] Performed By: #### 2 4323-8 ####[facility] LABCLIA [id number] [place] [address] ALP [Catalytic activity/Vol] 110 U/L Normal 38-113 [facility] Comment on above: Order Comment: Speci men Type: BLOOD SPECIMENOrdering Facility: [facility] Address: [address] [place] [address] Performed By: #### 2 4323-8 ####[facility] LABCLIA [id number] [place] [address] ALT [Catalytic activity/Vol] 10 U/L Normal 10-54 [facility] Comment on above: Order Comment: Speci men Type: BLOOD SPECIMENOrdering Facility: [facility] Address: [address] [place] [address] Performed By: #### 2 4323-8 ####[facility] LABCLIA [id number] [place] [address] Anion gap [Moles/Vol] 8 mmol/L Low 9-18 [facility] Comment on above: Order Comment: Speci men Type: BLOOD SPECIMENOrdering Facility: [facility] Address: [address] [place] [address] Performed By: #### 2 4323-8 ####[facility] LABCLIA [id number] [place] [address] AST [Catalytic activity/Vol] 11 U/L Low 14-40 [facility] Comment on above: Order Comment: Speci men Type: BLOOD SPECIMENOrdering Facility: [facility] Address: [address] [place] [address] Performed By: #### 2 4323-8 ####[facility] LABCLIA [id number] [place] [address] Bilirubin [Mass/Vol] 0.6 mg/dL Normal 0.2-1.3 [facility] Comment on above: Order Comment: Speci men Type: BLOOD SPECIMENOrdering Facility: [facility] Address: [address] [place] [address] Performed By: #### 2 4323-8 ####[facility] LABCLIA [id number] [place] [address] Calcium [Mass/Vol] 10.4 mg/dL High 8.5-10.2 [facility] [place] Comment on above: Order Comment: Speci men Type: BLOOD SPECIMENOrdering Facility: [facility] Address: [address] [place] [address] Performed By: #### 2 4323-8 ####[facility] LABCLIA [id number] [place] [address] Chloride [Moles/Vol] 100 mmol/L Normal 97-105 [facility] Comment on above: Order Comment: Speci men Type: BLOOD SPECIMENOrdering Facility: [facility] Address: [address] [place] [address] Performed By: #### 2 4323-8 ####[facility] LABCLIA [id number] [place] [address] CO2 [Moles/Vol] 27 mmol/L Normal 22-30 [facility] Comment on above: Order Comment: Speci men Type: BLOOD SPECIMENOrdering Facility: [facility] Address: [address] [place] [address] Performed By: #### 2 4323-8 ####[facility] LABCLIA [id number] [place] [address] Creatinine [Mass/Vol] 0.83 mg/dL Normal 0.73-1.22 [facility] Comment on above: Order Comment: Speci men Type: BLOOD SPECIMENOrdering Facility: [facility] Address: [address] [place] [address] Performed By: #### 2 4323-8 ####[facility] LABCLIA [id number] [place] [address] Creatinine and Glomerular filtration rate.predicted panel (S/P/Bld) 93 mL/min/1.73m??? Normal >=60 [facility] Comment on above: Order Comment: Speci men Type: BLOOD SPECIMENOrdering Facility: [facility] Address: [address] [place] [address] Result Comment: Kathy mated Glomerular Filtration Rate [...] actual GFR. Performed By: #### 2 4323-8 ####[facility] LABCLIA [id number] [place] [address] Glucose [Mass/Vol] 167 mg/dL High 74-99 [facility] [place] Comment on above: Order Comment: Speci men Type: BLOOD SPECIMENOrdering Facility: [facility] Address: [address] [place] [address] Result Comment: The [employer] Diabetes Association (ADA) provides guidance for cutoff [...] Standards of Medical Care in Diabetes 2016, [place] Diabetes Association. Diabetes Care. 2016.39(Suppl 1). Performed By: #### 2 4323-8 ####[facility] LABCLIA [id number] [place] [address] Potassium [Moles/Vol] 4.3 mmol/L Normal 3.7-5.1 [facility] Comment on above: Order Comment: Speci men Type: BLOOD SPECIMENOrdering Facility: [facility] Address: [address] [place] [address] Performed By: #### 2 4323-8 ####[facility] LABCLIA [id number] [place] [address] Protein [Mass/Vol] 6.9 g/dL Normal 6.3-8.0 [facility] [place] Comment on above: Order Comment: Speci men Type: BLOOD SPECIMENOrdering Facility: [facility] Address: [address] [place] [address] Performed By: #### 2 4323-8 ####[facility] LABCLIA [id number] [place] [address] Sodium [Moles/Vol] 135 mmol/L Low 136-144 [facility] [place] Comment on above: Order Comment: Speci men Type: BLOOD SPECIMENOrdering Facility: [facility] Address: [address] [place] [address] Performed By: #### 2 4323-8 ####[facility] LABCLIA [id number] [place] [address] Urea nitrogen [Mass/Vol] 13 mg/dL Normal 9-24 [facility] Comment on above: Order Comment: Speci men Type: BLOOD SPECIMENOrdering Facility: [facility] Address: [address] [place] [address] Performed By: #### 2 4323-8 ####[facility] LABCLIA [id number] [place] [address] XR CHEST 2V FRONTAL/LATon XR CHEST 2V FRONTAL/LAT Normal [facility] XR Chest PA and Lateralon IMPRESSION: [...] any questions regarding this interpretation, please call [phone]. If you are unable to reach us at the number above, please feel free to contact [facility] at [phone]. DIVISION OF RADIOLOGY * * *Final Report* [...] any questions regarding this interpretation, please call [phone]. If you are unable to reach us at the number above, please feel free to contact [facility] at [phone]. [facility] Radiology Study observation (narrative) [facility] XR Chest PA and LateralOrder ed By: Ccf Provider on 10-03-2023 [facility] CNPNon 09-25-2023 CNPN Normal [facility] CNPNon 09-18-2023 CNPN Normal [facility] CBC W Auto Differential pane l (Bld)on 09-13-2023 Basophils (Bld) [#/Vol] [facility] Basophils/100 WBC (Bld) 0.5 % [facility] Differential cell count method Nom (Bld) Auto [facility] Eosinophils (Bld) [#/Vol] 0.03 10*3/uL [facility] Eosinophils/100 WBC (Bld) 0.8 % [facility] Erythrocyte distribution width (RBC) [Ratio] 14.6 % 11.5 - 15.0 % [facility] Hematocrit (Bld) [Volume fraction] 35.3 % Low 39.0 - 51.0 % [facility] Hemoglobin (Bld) [Mass/Vol] 11.4 g/dL Low 13.0 - 17.0 g/dL [facility] Immature granulocytes (Bld) [#/Vol] [facility] Immature granulocytes/100 WBC (Bld) 0.3 % [facility] Interpretation and review of laboratory results Abnormal [facility] Lymphocytes (Bld) [#/Vol] 1.33 10*3/uL [facility] Lymphocytes/100 WBC (Bld) 34.2 % [facility] MCH (RBC) [Entitic mass] 33.2 pg 26.0 - 34.0 pg [facility] MCHC (RBC) [Mass/Vol] 32.3 g/dL 30.5 - 36.0 g/dL [facility] MCV (RBC) [Entitic vol] 102.9 fL High 80.0 - 100.0 fL [facility] Monocytes (Bld) [#/Vol] 0.59 10*3/uL [facility] Monocytes/100 WBC (Bld) 15.2 % [facility] Neutrophils (Bld) [#/Vol] 1.91 10*3/uL [facility] Neutrophils/100 WBC (Bld) 49.0 % [facility] Nucleated RBC (Bld) [#/Vol] [facility] Nucleated RBC/100 WBC (Bld) [Ratio] 0.0 % /100 WBC [facility] Platelet mean volume (Bld) [Entitic vol] 10.0 fL 9.0 - 12.7 fL [facility] Platelets (Bld) [#/Vol] 255 10*3/uL [facility] RBC (Bld) [#/Vol] 3.43 10*6/uL Low 4.20 - 6.0 0 m/uL [facility] WBC (Bld) [#/Vol] 3.89 10*3/uL [facility] Basophils (Bld) [#/Vol] 10*3/uL Normal <0.11 [facility] Comment on above: Order Comment: Speci men Type: BLOOD SPECIMENOrdering Facility: [facility] [facility] Address: [address] [place] [address] Performed By: #### 5 7021-8 ####[facility] LABCLIA [id number] [place] [address] Basophils/100 WBC (Bld) 0.5 % Normal [facility] Comment on above: Order Comment: Speci men Type: BLOOD SPECIMENOrdering Facility: [facility] Address: [address] [place] [address] Performed By: #### 5 7021-8 ####[facility] LABCLIA [id number] [place] [address] Differential cell count method Nom (Bld) Auto Normal [facility] Comment on above: Order Comment: Speci men Type: BLOOD SPECIMENOrdering Facility: [facility] Address: [address] [place] [address] Performed By: #### 5 7021-8 ####[facility] LABCLIA [id number] [place] [address] Eosinophils (Bld) [#/Vol] 0.03 10*3/uL Normal <0.46 [facility] Comment on above: Order Comment: Speci men Type: BLOOD SPECIMENOrdering Facility: [facility] Address: [address] [place] [address] Performed By: #### 5 7021-8 ####[facility] LABCLIA [id number] [place] [address] Eosinophils/100 WBC (Bld) 0.8 % Normal [facility] Comment on above: Order Comment: Speci men Type: BLOOD SPECIMENOrdering Facility: [facility] Address: [address] [place] [address] Performed By: #### 5 7021-8 ####[facility] LABCLIA [id number] [place] [address] Erythrocyte distribution width (RBC) [Ratio] 14.6 % Normal 11.5-15.0 [facility] Comment on above: Order Comment: Speci men Type: BLOOD SPECIMENOrdering Facility: [facility] Address: [address] [place] [address] Performed By: #### 5 7021-8 ####[facility] LABCLIA [id number] [place] [address] Hematocrit (Bld) [Volume fraction] 35.3 % Low 39.0-51.0 [facility] Comment on above: Order Comment: Speci men Type: BLOOD SPECIMENOrdering Facility: [facility] Address: [address] [place] [address] Performed By: #### 5 7021-8 ####[facility] LABCLIA [id number] [place] [address] Hemoglobin (Bld) [Mass/Vol] 11.4 g/dL Low 13.0-17.0 [facility] Comment on above: Order Comment: Speci men Type: BLOOD SPECIMENOrdering Facility: [facility] Address: [address] [place] [address] Performed By: #### 5 7021-8 ####[facility] LABCLIA [id number] [place] [address] Immature granulocytes (Bld) [#/Vol] 10*3/uL Normal <0.10 [facility] Comment on above: Order Comment: Speci men Type: BLOOD SPECIMENOrdering Facility: [facility] Address: [address] [place] [address] Performed By: #### 5 7021-8 ####[facility] LABCLIA [id number] [place] [address] Immature granulocytes/100 WBC (Bld) 0.3 % Normal [facility] Comment on above: Order Comment: Speci men Type: BLOOD SPECIMENOrdering Facility: [facility] Address: [address] [place] [address] Performed By: #### 5 7021-8 ####[facility] LABCLIA [id number] [place] [address] Lymphocytes (Bld) [#/Vol] 1.33 10*3/uL Normal 1.00-4.00 [facility] Comment on above: Order Comment: Speci men Type: BLOOD SPECIMENOrdering Facility: [facility] Address: [address] [place] [address] Performed By: #### 5 7021-8 ####[facility] LABCLIA [id number] [place] [address] Lymphocytes/100 WBC (Bld) 34.2 % Normal [facility] Comment on above: Order Comment: Speci men Type: BLOOD SPECIMENOrdering Facility: [facility] Address: [address] [place] [address] Performed By: #### 5 7021-8 ####[facility] LABCLIA [id number] [place] [address] MCH (RBC) [Entitic mass] 33.2 pg Normal 26.0-34.0 [facility] Comment on above: Order Comment: Speci men Type: BLOOD SPECIMENOrdering Facility: [facility] Address: [address] [place] [address] Performed By: #### 5 7021-8 ####[facility] LABCLIA [id number] [place] [address] MCHC (RBC) [Mass/Vol] 32.3 g/dL Normal 30.5-36.0 [facility] Comment on above: Order Comment: Speci men Type: BLOOD SPECIMENOrdering Facility: [facility] Address: [address] [place] [address] Performed By: #### 5 7021-8 ####[facility] LABCLIA [id number] [place] [address] MCV (RBC) [Entitic vol] 102.9 fL High 80.0-100.0 [facility] Comment on above: Order Comment: Speci men Type: BLOOD SPECIMENOrdering Facility: [facility] Address: [address] [place] [address] Performed By: #### 5 7021-8 ####[facility] LABCLIA [id number] [place] [address] Monocytes (Bld) [#/Vol] 0.59 10*3/uL Normal <0.87 [facility] Comment on above: Order Comment: Speci men Type: BLOOD SPECIMENOrdering Facility: [facility] Address: [address] [place] [address] Performed By: #### 5 7021-8 ####[facility] LABCLIA [id number] [place] [address] Monocytes/100 WBC (Bld) 15.2 % Normal [facility] Comment on above: Order Comment: Speci men Type: BLOOD SPECIMENOrdering Facility: [facility] Address: [address] [place] [address] Performed By: #### 5 7021-8 ####[facility] LABCLIA [id number] [place] [address] Neutrophils (Bld) [#/Vol] 1.91 10*3/uL Normal 1.45-7.50 [facility] Comment on above: Order Comment: Speci men Type: BLOOD SPECIMENOrdering Facility: [facility] Address: [address] [place] [address] Performed By: #### 5 7021-8 ####[facility] LABCLIA [id number] [place] [address] Neutrophils/100 WBC (Bld) 49.0 % Normal [facility] Comment on above: Order Comment: Speci men Type: BLOOD SPECIMENOrdering Facility: [facility] Address: [address] [place] [address] Performed By: #### 5 7021-8 ####[facility] LABCLIA [id number] [place] [address] Nucleated RBC (Bld) [#/Vol] 10*3/uL Normal <0.01 [facility] Comment on above: Order Comment: Speci men Type: BLOOD SPECIMENOrdering Facility: [facility] Address: [address] [place] [address] Performed By: #### 5 7021-8 ####[facility] LABCLIA [id number] [place] [address] Nucleated RBC/100 WBC (Bld) [Ratio] 0.0 /100 WBC Normal [facility] Comment on above: Order Comment: Speci men Type: BLOOD SPECIMENOrdering Facility: [facility] Address: [address] [place] [address] Performed By: #### 5 7021-8 ####[facility] LABCLIA [id number] [place] [address] Platelet mean volume (Bld) [Entitic vol] 10.0 fL Normal 9.0-12.7 [facility] Comment on above: Order Comment: Speci men Type: BLOOD SPECIMENOrdering Facility: [facility] Address: [address] [place] [address] Performed By: #### 5 7021-8 ####[facility] LABCLIA [id number] [place] [address] Platelets (Bld) [#/Vol] 255 10*3/uL Normal 150-400 [facility] Comment on above: Order Comment: Speci men Type: BLOOD SPECIMENOrdering Facility: [facility] Address: [address] [place] [address] Performed By: #### 5 7021-8 ####[facility] LABCLIA [id number] [place] [address] RBC (Bld) [#/Vol] 3.43 10*6/uL Low 4.20-6.00 [facility] Comment on above: Order Comment: Speci men Type: BLOOD SPECIMENOrdering Facility: [facility] Address: [address] [place] [address] Performed By: #### 5 7021-8 ####[facility] LABCLIA [id number] [place] [address] WBC (Bld) [#/Vol] 3.89 10*3/uL Normal 3.70-11.00 [facility] Comment on above: Order Comment: Speci men Type: BLOOD SPECIMENOrdering Facility: [facility] Address: [address] [id number] Performed By: #### 5 7021-8 ####[facility] LABCLIA [id number] [place] [address] CNOVSPon 09-13-2023 CNOVSP Normal [facility] Cancer Ag19-9 SerPl-aCncon 0 09-13-2023 Cancer Ag 19-9 Qn 967.0 [arb'U]/mL High <36.0 [facility] Comment on above: Order Comment: Speci men Type: BLOOD SPECIMENOrdering Facility: [facility] Address: [address] [place], [place] [address] Result Comment: [facility] er antigen 19-9 test is used as an aid in monitoring response to treatment or recurrence in patients with established pancreatic, hepatobiliary, or gastrointestinal malignancies. Clinical correlation is required.The CA 19-9 Antigen test was performed using the Simple-Fillel DXI paramagnetic particle chemiluminescent immunoassay method. Results obtained with different assay methods or kits cannot be used interchangeably. Performed By: #### 2 4108-3 ####[facility] LABCLIA [id number] [place] [id number] [place] Comprehensive metabolic 2000 panelOrdered By: Je Elias on 09-13-2023 Albumin [Mass/Vol] 3.8 g/dL Low 3.9 - 4.9 g/dL [facility] ALP [Catalytic activity/Vol] 136 U/L High 38 - 113 U/L [facility] ALT [Catalytic activity/Vol] 18 U/L 10 - 54 U/L [facility] Anion gap [Moles/Vol] 10 mmol/L 9 - 18 mmol/L [facility] AST [Catalytic activity/Vol] 16 U/L 14 - 40 U/L [facility] Bilirubin [Mass/Vol] 0.7 mg/dL 0.2 - 1 .3 mg/dL [facility] Calcium [Mass/Vol] 10.3 mg/dL High 8.5 - 10. 2 mg/dL [facility] Chloride [Moles/Vol] 109 mmol/L High 97 - 10 5 mmol/L [facility] CO2 [Moles/Vol] 24 mmol/L 22 - 30 mmol/L [facility] Creatinine [Mass/Vol] 0.81 mg/dL 0.73 - 1.22 mg/dL [facility] GFR/1.73 sq M.predicted among non-blacks MDRD (S/P/Bld) [Vol rate/Area] 94 mL/min/{1.73_m2} - PINF [facility] Comment on above: Estimated Glomerular [...] 142 mg/dL High 74 - 99 mg/dL [facility] Comment on above: The [employer] Diabete s Association (ADA) provides guidance for [...] Standards of Medical Care in Diabetes 2016, [employer] Diabetes Association. Diabetes Care. 2016.39(Suppl 1). Interpretation and review of laboratory results Abnormal [facility] Potassium [Moles/Vol] 4.4 mmol/L 3.7 - 5.1 mmol/L [facility] Protein [Mass/Vol] 6.6 g/dL 6.3 - 8.0 g/dL [facility] Sodium [Moles/Vol] 143 mmol/L 136 - 144 mmol/L [facility] Urea nitrogen [Mass/Vol] 16 mg/dL 9 - 24 mg/dL [facility] Comprehensive metabolic 2000 panelon 09-13-2023 Albumin [Mass/Vol] 3.8 g/dL Low 3.9-4.9 [facility] Comment on above: Order Comment: Speci men Type: BLOOD SPECIMENOrdering Facility: [facility] Address: [address] [place] [address] Performed By: #### 2 4323-8 ####[facility] LABCLIA [id number] [place] [address] ALP [Catalytic activity/Vol] 136 U/L High 38-113 [facility] Comment on above: Order Comment: Speci men Type: BLOOD SPECIMENOrdering Facility: [facility] Address: [address] [place] [address] Performed By: #### 2 4323-8 ####[facility] LABCLIA [id number] [place] [address] ALT [Catalytic activity/Vol] 18 U/L Normal 10-54 [facility] Comment on above: Order Comment: Speci men Type: BLOOD SPECIMENOrdering Facility: [facility] Address: [address] [place] [address] Performed By: #### 2 4323-8 ####[facility] LABCLIA [id number] [place] [address] Anion gap [Moles/Vol] 10 mmol/L Normal 9-18 [facility] Comment on above: Order Comment: Speci men Type: BLOOD SPECIMENOrdering Facility: [facility] Address: [address] [place] [address] Performed By: #### 2 4323-8 ####[facility] LABCLIA [id number] [place] [address] AST [Catalytic activity/Vol] 16 U/L Normal 14-40 [facility] Comment on above: Order Comment: Speci men Type: BLOOD SPECIMENOrdering Facility: [facility] Address: [address] [place] [address] Performed By: #### 2 4323-8 ####[facility] LABCLIA [id number] [place] [address] Bilirubin [Mass/Vol] 0.7 mg/dL Normal 0.2-1.3 [facility] Comment on above: Order Comment: Speci men Type: BLOOD SPECIMENOrdering Facility: [facility] Address: [address] [place] [address] Performed By: #### 2 4323-8 ####[facility] LABCLIA [id number] [place] [address] Calcium [Mass/Vol] 10.3 mg/dL High 8.5-10.2 [facility] Comment on above: Order Comment: Speci men Type: BLOOD SPECIMENOrdering Facility: [facility] Address: [address] [place] [address] Performed By: #### 2 4323-8 ####[facility] LABCLIA [id number] [place] [address] Chloride [Moles/Vol] 109 mmol/L High 97-105 [facility] Comment on above: Order Comment: Speci men Type: BLOOD SPECIMENOrdering Facility: [facility] Address: [address] [place] [address] Performed By: #### 2 4323-8 ####[facility] LABCLIA [id number] [place] [address] CO2 [Moles/Vol] 24 mmol/L Normal 22-30 [facility] Comment on above: Order Comment: Speci men Type: BLOOD SPECIMENOrdering Facility: [facility] Address: [address] [place] [address] Performed By: #### 2 4323-8 ####[facility] LABCLIA [id number] [place] [address] Creatinine [Mass/Vol] 0.81 mg/dL Normal 0.73-1.22 [facility] Comment on above: Order Comment: Speci men Type: BLOOD SPECIMENOrdering Facility: [facility] Address: [address] [place] [address] Performed By: #### 2 4323-8 ####[facility] LABCLIA [id number] [place] [address] Creatinine and Glomerular filtration rate.predicted panel (S/P/Bld) 94 mL/min/1.73m??? Normal >=60 [facility] Comment on above: Order Comment: Noemí hoff Type: BLOOD SPECIMENOrdering Facility: [facility] Address: [address] [place] [address] Result Comment: Kathy mated Glomerular Filtration Rate [...] actual GFR. Performed By: #### 2 4323-8 ####[facility] LABCLIA [id number] [place] [address] Glucose [Mass/Vol] 142 mg/dL High 74-99 [facility] Comment on above: Order Comment: Noemí hoff Type: BLOOD SPECIMENOrdering Facility: [facility] Address: [address] [place] [address] Result Comment: The [employer] Diabetes Association (ADA) provides guidance for cutoff [...] Standards of Medical Care in Diabetes 2016, [place] Diabetes Association. Diabetes Care. 2016.39(Suppl 1). Performed By: #### 2 4323-8 ####[facility] LABCLIA [id number] [place] [address] Potassium [Moles/Vol] 4.4 mmol/L Normal 3.7-5.1 [facility] Comment on above: Order Comment: Speci men Type: BLOOD SPECIMENOrdering Facility: [facility] Address: [address] [place], [place] [address] Performed By: #### 2 4323-8 ####[facility] LABCLIA [id number] [place] [address] Protein [Mass/Vol] 6.6 g/dL Normal 6.3-8.0 [facility] Comment on above: Order Comment: Speci men Type: BLOOD SPECIMENOrdering Facility: [facility] Address: [address] [place] [address] Performed By: #### 2 4323-8 ####[facility] LABCLIA [id number] [place] [address] Sodium [Moles/Vol] 143 mmol/L Normal 136-144 [facility] Comment on above: Order Comment: Speci men Type: BLOOD SPECIMENOrdering Facility: [facility] Address: [address] [place], [place] [address] Performed By: #### 2 4323-8 ####[facility] LABCLIA [id number] [place] [address] Urea nitrogen [Mass/Vol] 16 mg/dL Normal 9-24 [facility] Comment on above: Order Comment: Speci men Type: BLOOD SPECIMENOrdering Facility: [facility] Address: [address] [place], [place] [address] Performed By: #### 2 4323-8 ####[facility] LABCLIA [id number] [place] [address] FERRITIN BLDon 09-13-2023 Ferritin [Mass/Vol] 56.8 ng/mL 30.3 - 565.7 ng/mL [facility] Ferritin SerPl-mCncon 2023 Ferritin [Mass/Vol] 56.8 ng/mL Normal 30.3-565.7 [facility] Comment on above: Order Comment: Speci men Type: BLOOD SPECIMENOrdering Facility: [facility] Address: [address] [place] [address] Performed By: #### 5 0190-8, 2275-08, 2132-01 ####[facility] LABCLIA [id number] [address] [address] [place] Iron and Iron binding capaci ty panelon 09-13-2023 Interpretation and review of laboratory results Normal [facility] Iron [Mass/Vol] 55 ug/dL 41 - 186 ug/dL [facility] Iron binding capacity [Mass/Vol] 335 ug/dL 232 - 386 ug/dL [facility] Iron/TIBC [Molar ratio] 16.4 % 15.0 - 57.0 % [facility] Iron [Mass/Vol] 55 ug/dL Normal 41-186 [facility] Comment on above: Order Comment: Speci men Type: BLOOD SPECIMENOrdering Facility: [facility] Address: [address] [place] [address] Performed By: #### 5 0190-8, 2275-08, 2132-01 ####[facility] LABCLIA [id number] [place] [address] [place] Iron binding capacity [Mass/Vol] 335 ug/dL Normal 232-386 [facility] Comment on above: Order Comment: Speci men Type: BLOOD SPECIMENOrdering Facility: [facility] Address: [address] [place] [address] Performed By: #### 5 0190-8, 2275-08, 2132-01 ####[facility] LABCLIA [id number] [address] [address] [place] Iron/TIBC [Molar ratio] 16.4 % Normal 15.0-57.0 [facility] Comment on above: Order Comment: Speci men Type: BLOOD SPECIMENOrdering Facility: [facility] Address: [address] [place] [address] Performed By: #### 5 0190-8, 2275-08, 2132-01 ####[facility] LABCLIA [id number] [place] [address] [place] No Panel Informationon 09-12 Interpretation and review of laboratory results Normal [facility] VITAMIN B12 BLOODon 09-13-19 24 Cobalamin (Vitamin B12) [Mass/Vol] 720 pg/mL 232 - 1245 pg/mL [facility] Vit B12 SerPl-mCncon 024 Cobalamin (Vitamin B12) [Mass/Vol] 720 pg/mL Normal 232-1245 [facility] Comment on above: Order Comment: Speci men Type: BLOOD SPECIMENOrdering Facility: [facility] Address: [address] [place] [address] Performed By: #### 5 0190-8, 2276-4, 2132-9 ####[facility] LABCLIA [id number] [place] [address] [place] CBC W Auto Differential pane l (Bld)on 08-23-2023 Basophils (Bld) [#/Vol] <0.11 k/uL [facility] Basophils/100 WBC (Bld) 0.4 % [facility] Differential cell count method Nom (Bld) Auto [facility] Eosinophils (Bld) [#/Vol] 0.04 10*3/uL <0.46 k/uL [facility] Eosinophils/100 WBC (Bld) 0.8 % [facility] Erythrocyte distribution width (RBC) [Ratio] 15.3 % High 11.5 - 15.0 % [facility] Hematocrit (Bld) [Volume fraction] 34.6 % Low 39.0 - 51.0 % [facility] Hemoglobin (Bld) [Mass/Vol] 11.3 g/dL Low 13.0 - 17.0 g/dL [facility] Immature granulocytes (Bld) [#/Vol] <0.10 k/uL [facility] Immature granulocytes/100 WBC (Bld) 0.4 % [facility] Lymphocytes (Bld) [#/Vol] 1.95 10*3/uL 1.00 - 4.00 k/uL [facility] Lymphocytes/100 WBC (Bld) 40.7 % [facility] MCH (RBC) [Entitic mass] 34.1 pg High 26.0 - 34.0 pg [facility] MCHC (RBC) [Mass/Vol] 32.7 g/dL 30.5 - 36.0 g/dL [facility] MCV (RBC) [Entitic vol] 104.5 fL High 80.0 - 100.0 fL [facility] Monocytes (Bld) [#/Vol] 0.72 10*3/uL <0.87 k/uL [facility] Monocytes/100 WBC (Bld) 15.0 % [facility] Neutrophils (Bld) [#/Vol] 2.04 10*3/uL 1.45 - 7.50 k/uL [facility] Neutrophils/100 WBC (Bld) 42.7 % [facility] Nucleated RBC (Bld) [#/Vol] <0.01 k/uL [facility] Nucleated RBC/100 WBC (Bld) [Ratio] 0.0 /100 WBC [facility] Platelet mean volume (Bld) [Entitic vol] 10.0 fL 9.0 - 12.7 fL [facility] Platelets (Bld) [#/Vol] 241 10*3/uL 150 - 400 k/uL [facility] RBC (Bld) [#/Vol] 3.31 10*6/uL Low 4.20 - 6.0 0 m/uL [facility] WBC (Bld) [#/Vol] 4.79 10*3/uL 3.70 - 11.00 k/uL [facility] Basophils (Bld) [#/Vol] 10*3/uL Normal <0.11 [facility] Comment on above: Order Comment: Speci men Type: BLOOD SPECIMENOrdering Facility: [facility] Address: [address] [place] [address] Performed By: #### 5 7021-8 ####[facility] LABCLIA [id number] [place] [address] Basophils/100 WBC (Bld) 0.4 % Normal [facility] Comment on above: Order Comment: Speci men Type: BLOOD SPECIMENOrdering Facility: [facility] Address: [address] [place] [address] Performed By: #### 5 7021-8 ####[facility] LABCLIA [id number] [place] [address] Differential cell count method Nom (Bld) Auto Normal [facility] Comment on above: Order Comment: Speci men Type: BLOOD SPECIMENOrdering Facility: [facility] Address: [address] [place] [address] Performed By: #### 5 7021-8 ####[facility] LABCLIA [id number] [place] [address] Eosinophils (Bld) [#/Vol] 0.04 10*3/uL Normal <0.46 [facility] Comment on above: Order Comment: Speci men Type: BLOOD SPECIMENOrdering Facility: [facility] Address: [address] [place] [address] Performed By: #### 5 7021-8 ####[facility] LABCLIA [id number] [place] [address] Eosinophils/100 WBC (Bld) 0.8 % Normal [facility] Comment on above: Order Comment: Speci men Type: BLOOD SPECIMENOrdering Facility: [facility] Address: [address] [place] [address] Performed By: #### 5 7021-8 ####[facility] LABCLIA [id number] [place] [address] Erythrocyte distribution width (RBC) [Ratio] 15.3 % High 11.5-15.0 [facility] Comment on above: Order Comment: Speci men Type: BLOOD SPECIMENOrdering Facility: [facility] Address: [address] [place] [address] Performed By: #### 5 7021-8 ####[facility] LABIA [id number] [place] [address] Hematocrit (Bld) [Volume fraction] 34.6 % Low 39.0-51.0 [facility] Comment on above: Order Comment: Speci men Type: BLOOD SPECIMENOrdering Facility: [facility] Address: [address] [place] [address] Performed By: #### 5 7021-8 ####[facility] LABCLIA [id number] [place] [address] Hemoglobin (Bld) [Mass/Vol] 11.3 g/dL Low 13.0-17.0 [facility] Comment on above: Order Comment: Speci men Type: BLOOD SPECIMENOrdering Facility: [facility] Address: [address] [place] [address] Performed By: #### 5 7021-8 ####[facility] LABCLIA [id number] [place] [address] Immature granulocytes (Bld) [#/Vol] 10*3/uL Normal <0.10 [facility] Comment on above: Order Comment: Speci men Type: BLOOD SPECIMENOrdering Facility: [facility] Address: [address] [place] [address] Performed By: #### 5 7021-8 ####[facility] LABCLIA [id number] [place] [address] Immature granulocytes/100 WBC (Bld) 0.4 % Normal [facility] Comment on above: Order Comment: Speci men Type: BLOOD SPECIMENOrdering Facility: [facility] Address: [address] [place] [address] Performed By: #### 5 7021-8 ####[facility] LABCLIA [id number] [place] [address] Lymphocytes (Bld) [#/Vol] 1.95 10*3/uL Normal 1.00-4.00 [facility] Comment on above: Order Comment: Speci men Type: BLOOD SPECIMENOrdering Facility: [facility] Address: [address] [place] [address] Performed By: #### 5 7021-8 ####[facility] LABCLIA [id number] [place] [address] Lymphocytes/100 WBC (Bld) 40.7 % Normal [facility] Comment on above: Order Comment: Speci men Type: BLOOD SPECIMENOrdering Facility: [facility] Address: [address] [place] [address] Performed By: #### 5 7021-8 ####[facility] LABCLIA [id number] [place] [address] MCH (RBC) [Entitic mass] 34.1 pg High 26.0-34.0 [facility] Comment on above: Order Comment: Speci men Type: BLOOD SPECIMENOrdering Facility: [facility] Address: [address] [place] [address] Performed By: #### 5 7021-8 ####[facility] LABCLIA [id number] [place] [address] MCHC (RBC) [Mass/Vol] 32.7 g/dL Normal 30.5-36.0 [facility] Comment on above: Order Comment: Speci men Type: BLOOD SPECIMENOrdering Facility: [facility] Address: [address] [place] [address] Performed By: #### 5 7021-8 ####[facility] LABCLIA [id number] [place] [address] MCV (RBC) [Entitic vol] 104.5 fL High 80.0-100.0 [facility] Comment on above: Order Comment: Speci men Type: BLOOD SPECIMENOrdering Facility: [facility] Address: [address] [place] [address] Performed By: #### 5 7021-8 ####[facility] LABIA [id number] [place] [address] Monocytes (Bld) [#/Vol] 0.72 10*3/uL Normal <0.87 [facility] Comment on above: Order Comment: Speci men Type: BLOOD SPECIMENOrdering Facility: [facility] Address: [address] [place] [address] Performed By: #### 5 7021-8 ####[facility] LABCLIA [id number] [place] [address] Monocytes/100 WBC (Bld) 15.0 % Normal [facility] Comment on above: Order Comment: Speci men Type: BLOOD SPECIMENOrdering Facility: [facility] Address: [address] [place] [address] Performed By: #### 5 7021-8 ####[facility] LABCLIA [id number] [place] [address] Neutrophils (Bld) [#/Vol] 2.04 10*3/uL Normal 1.45-7.50 [facility] Comment on above: Order Comment: Speci men Type: BLOOD SPECIMENOrdering Facility: [facility] Address: [address] [place] [address] Performed By: #### 5 7021-8 ####[facility] LABCLIA [id number] [place] [address] Neutrophils/100 WBC (Bld) 42.7 % Normal [facility] Comment on above: Order Comment: Speci men Type: BLOOD SPECIMENOrdering Facility: [facility] Address: [address] [place] [address] Performed By: #### 5 7021-8 ####[facility] LABCLIA [id number] [place] [address] Nucleated RBC (Bld) [#/Vol] 10*3/uL Normal <0.01 [facility] Comment on above: Order Comment: Speci men Type: BLOOD SPECIMENOrdering Facility: [facility] Address: [address] [place] [address] Performed By: #### 5 7021-8 ####[facility] LABCLIA [id number] [place] [address] Nucleated RBC/100 WBC (Bld) [Ratio] 0.0 /100 WBC Normal [facility] Comment on above: Order Comment: Speci men Type: BLOOD SPECIMENOrdering Facility: [facility] Address: [address] [place] [address] Performed By: #### 5 7021-8 ####[facility] LABCLIA [id number] [place] [address] Platelet mean volume (Bld) [Entitic vol] 10.0 fL Normal 9.0-12.7 [facility] Comment on above: Order Comment: Speci men Type: BLOOD SPECIMENOrdering Facility: [facility] Address: [address] [place] [address] Performed By: #### 5 7021-8 ####[facility] LABCLIA [id number] [place] [address] Platelets (Bld) [#/Vol] 241 10*3/uL Normal 150-400 [facility] Comment on above: Order Comment: Speci men Type: BLOOD SPECIMENOrdering Facility: [facility] Address: [address] [place] [address] Performed By: #### 5 7021-8 ####[facility] LABCLIA [id number] [place] [address] RBC (Bld) [#/Vol] 3.31 10*6/uL Low 4.20-6.00 [facility] Comment on above: Order Comment: Speci men Type: BLOOD SPECIMENOrdering Facility: [facility] Address: [address] [place] [address] Performed By: #### 5 7021-8 ####[facility] LABCLIA [id number] [place] [address] WBC (Bld) [#/Vol] 4.79 10*3/uL Normal 3.70-11.00 [facility] Comment on above: Order Comment: Speci men Type: BLOOD SPECIMENOrdering Facility: [facility] Address: [address] [place] [address] Performed By: #### 5 7021-8 ####[facility] LABCLIA [id number] [place] [address] CNOVSPon 08-23-2023 CNOVSP Normal [facility] Cancer Ag19-9 SerPl-aCncon 0 08-23-2023 Cancer Ag 19-9 Qn 1509.0 [arb'U]/mL High <36.0 [facility] Comment on above: Order Comment: Speci men Type: BLOOD SPECIMENOrdering Facility: [facility] Address: [address] [place] [address] Result Comment: [facility] er antigen 19-9 test is used as an aid in monitoring response to treatment or recurrence in patients with established pancreatic, hepatobiliary, or gastrointestinal malignancies. Clinical correlation is required.The CA 19-9 Antigen test was performed using the Simple-Fillel DXI paramagnetic particle chemiluminescent immunoassay method. Results obtained with different assay methods or kits cannot be used interchangeably. Performed By: #### 2 4108-3 ####[facility] LABCLIA [id number] [place] [address] [place] Comprehensive metabolic 2000 panelon 08-23-2023 Albumin [Mass/Vol] 4.0 g/dL 3.9 - 4.9 g/dL [facility] ALP [Catalytic activity/Vol] 139 U/L High 38 - 113 U/L [facility] ALT [Catalytic activity/Vol] 16 U/L 10 - 54 U/L [facility] Anion gap [Moles/Vol] 9 mmol/L 9 - 18 mmol/L [facility] AST [Catalytic activity/Vol] 16 U/L 14 - 40 U/L [facility] Bilirubin [Mass/Vol] 0.8 mg/dL 0.2 - 1 .3 mg/dL [facility] Calcium [Mass/Vol] 10.7 mg/dL High 8.5 - 10. 2 mg/dL [facility] Chloride [Moles/Vol] 105 mmol/L 97 - 10 5 mmol/L [facility] CO2 [Moles/Vol] 25 mmol/L 22 - 30 mmol/L [facility] Creatinine [Mass/Vol] 0.83 mg/dL 0.73 - 1.22 mg/dL [facility] Estimated Glomerular Filtration Rate 93 mL/min/1.73m >=60 mL/min/1.73 m [facility] Glucose [Mass/Vol] 142 mg/dL High 74 - 99 mg/dL [facility] Potassium [Moles/Vol] 4.1 mmol/L 3.7 - 5.1 mmol/L [facility] Protein [Mass/Vol] 6.9 g/dL 6.3 - 8.0 g/dL [facility] Sodium [Moles/Vol] 139 mmol/L 136 - 144 mmol/L [facility] Urea nitrogen [Mass/Vol] 19 mg/dL 9 - 24 mg/dL [facility] Albumin [Mass/Vol] 4.0 g/dL Normal 3.9-4.9 [facility] Comment on above: Order Comment: Speci men Type: BLOOD SPECIMENOrdering Facility: [facility] Address: [address] [place] [address] Performed By: #### 2 4323-8 ####[facility] LABCLIA [id number] [place] [address] ALP [Catalytic activity/Vol] 139 U/L High 38-113 [facility] Comment on above: Order Comment: Speci men Type: BLOOD SPECIMENOrdering Facility: [facility] Address: [address] [place] [address] Performed By: #### 2 4323-8 ####[facility] LABCLIA [id number] [place] [address] ALT [Catalytic activity/Vol] 16 U/L Normal 10-54 [facility] Comment on above: Order Comment: Speci men Type: BLOOD SPECIMENOrdering Facility: [facility] Address: [address] [place] [address] Performed By: #### 2 4323-8 ####[facility] LABCLIA [id number] [place] [address] Anion gap [Moles/Vol] 9 mmol/L Normal 9-18 [facility] Comment on above: Order Comment: Speci men Type: BLOOD SPECIMENOrdering Facility: [facility] Address: [address] [place] [address] Performed By: #### 2 4323-8 ####[facility] LABCLIA [id number] [place] [address] AST [Catalytic activity/Vol] 16 U/L Normal 14-40 [facility] Comment on above: Order Comment: Speci men Type: BLOOD SPECIMENOrdering Facility: [facility] Address: [address] [place] [address] Performed By: #### 2 4323-8 ####[facility] LABCLIA [id number] [place] [address] Bilirubin [Mass/Vol] 0.8 mg/dL Normal 0.2-1.3 [facility] Comment on above: Order Comment: Speci men Type: BLOOD SPECIMENOrdering Facility: [facility] Address: [address] [place] [address] Performed By: #### 2 4323-8 ####[facility] LABCLIA [id number] [place] [address] Calcium [Mass/Vol] 10.7 mg/dL High 8.5-10.2 [facility] Comment on above: Order Comment: Speci men Type: BLOOD SPECIMENOrdering Facility: [facility] Address: [address] [place] [address] Performed By: #### 2 4323-8 ####[facility] LABCLIA [id number] [place] [address] Chloride [Moles/Vol] 105 mmol/L Normal 97-105 [facility] Comment on above: Order Comment: Speci men Type: BLOOD SPECIMENOrdering Facility: [facility] Address: [address] [place] [address] Performed By: #### 2 4323-8 ####[facility] LABCLIA [id number] [place] [address] CO2 [Moles/Vol] 25 mmol/L Normal 22-30 [facility] Comment on above: Order Comment: Speci men Type: BLOOD SPECIMENOrdering Facility: [facility] Address: [address] [id number] Performed By: #### 2 4323-8 ####[facility] LABCLIA [id number] [place] [address] Creatinine [Mass/Vol] 0.83 mg/dL Normal 0.73-1.22 [facility] Comment on above: Order Comment: Speci men Type: BLOOD SPECIMENOrdering Facility: [facility] Address: [address] [place] [address] Performed By: #### 2 4323-8 ####[facility] LABCLIA [id number] [place] [address] Creatinine and Glomerular filtration rate.predicted panel (S/P/Bld) 93 mL/min/1.73m??? Normal >=60 [facility] Comment on above: Order Comment: Speci men Type: BLOOD SPECIMENOrdering Facility: [facility] Address: [address] [place] [address] Result Comment: Kathy mated Glomerular Filtration Rate [...] actual GFR. Performed By: #### 2 4323-8 ####[facility] LABCLIA [id number] [place] [address] Glucose [Mass/Vol] 142 mg/dL High 74-99 [facility] Comment on above: Order Comment: Speci men Type: BLOOD SPECIMENOrdering Facility: [facility] Address: [address] [place] [address] Result Comment: The [employer] Diabetes Association (ADA) provides guidance for cutoff [...] Standards of Medical Care in Diabetes 2016, [employer] Diabetes Association. Diabetes Care. 2016.39(Suppl 1). Performed By: #### 2 4323-8 ####[facility] LABCLIA [id number] [place] [address] Potassium [Moles/Vol] 4.1 mmol/L Normal 3.7-5.1 [facility] Comment on above: Order Comment: Speci men Type: BLOOD SPECIMENOrdering Facility: [facility] Address: [address] [place] [address] Performed By: #### 2 4323-8 ####[facility] LABCLIA [id number] [place] [address] Protein [Mass/Vol] 6.9 g/dL Normal 6.3-8.0 [facility] Comment on above: Order Comment: Speci men Type: BLOOD SPECIMENOrdering Facility: [facility] Address: [address] [place] [address] Performed By: #### 2 4323-8 ####[facility] LABCLIA [id number] [place] [address] Sodium [Moles/Vol] 139 mmol/L Normal 136-144 [facility] Comment on above: Order Comment: Speci men Type: BLOOD SPECIMENOrdering Facility: [facility] Address: [address] [place] [address] Performed By: #### 2 4323-8 ####[facility] LABCLIA [id number] [place] [address] Urea nitrogen [Mass/Vol] 19 mg/dL Normal 9-24 [facility] Comment on above: Order Comment: Speci men Type: BLOOD SPECIMENOrdering Facility: [facility] Address: [address] [place] [address] Performed By: #### 2 4323-8 ####[facility] LABCLIA [id number] [place] [address] CNPNon 08-18-2023 CNPN Normal [facility] CT ABD/PEL W IVCONon 024 CT ABD/PEL W IVCON Normal [facility] CT Abdomen and Pelvis W cont rast [...] the report reviewed and electronically signed by: SHAEN MCGOWAN MD on Aug 18 2023 1:07PM EST Thank you for allowing us to participate in the care of your patient. Should there be any questions regarding this interpretation, please call [phone]. If you are unable to reach us at the number above, please feel free to contact [facility] at [phone]. DIVISION OF RADIOLOGY * * *Final Report* * * DATE OF EXAM: Aug 18 2023 10:27AM [facility] 0530 - CT ABD/PEL W IVCON / [...] chest CT performed will be reported separately. 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 DIVISION OF RADIOLOGY Provider, [facility] - 08/18/2023 * * *Final Report* * * DATE OF EXAM: Aug 18 2023 10:27AM [facility] 0530 - CT ABD/PEL W IVCON / [...] chest CT performed will be reported separately. 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 IMPRESSION IMPRESSION: [...] any questions regarding this interpretation, please call [phone]. If you are unable to reach us at the number above, please feel free to contact [facility] at [phone]. [facility] CT CHEST W IVCONon 4 CT CHEST W IVCON Normal [facility] CT Chest W contrast [place] IMPRESSION: 1. [...] any questions regarding this interpretation, please call [phone]. If you are unable to reach us at the number above, please feel free to contact [facility] at [phone]. DIVISION OF RADIOLOGY * * *Final Report* * * DATE OF EXAM: Aug 18 2023 10:27AM [facility] 0539 - CT CHEST W IVCON / [...] was performed and will be reported separately. 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 DIVISION OF RADIOLOGY Provider, [facility] - 08/18/2023 * * *Final Report* * * DATE OF EXAM: Aug 18 2023 10:27AM [facility] 0539 - CT CHEST W IVCON / [...] was performed and will be reported separately. 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 IMPRESSION IMPRESSION: [...] any questions regarding this interpretation, please call [phone]. If you are unable to reach us at the number above, please feel free to contact [facility] at [phone]. [facility] CT Chest W contrast IVOrdere d By: [facility] Provider on 08-18-2023 [facility] No Panel Informationon 08-17 Radiology Study observation (narrative) [facility] CNPNon 08-09-2023 CNPN Normal [facility] CBC W Auto Differential pane l (Bld)on 08-02-2023 Basophils (Bld) [#/Vol] <0.11 k/uL [facility] Basophils/100 WBC (Bld) 0.4 % [facility] Differential cell count method Nom (Bld) Auto [facility] Eosinophils (Bld) [#/Vol] 0.07 10*3/uL <0.46 k/uL [facility] Eosinophils/100 WBC (Bld) 1.3 % [facility] Erythrocyte distribution width (RBC) [Ratio] 17.4 % High 11.5 - 15.0 % [facility] Hematocrit (Bld) [Volume fraction] 31.6 % Low 39.0 - 51.0 % [facility] Hemoglobin (Bld) [Mass/Vol] 10.3 g/dL Low 13.0 - 17.0 g/dL [facility] Immature granulocytes (Bld) [#/Vol] <0.10 k/uL [facility] Immature granulocytes/100 WBC (Bld) 0.4 % [facility] Lymphocytes (Bld) [#/Vol] 1.29 10*3/uL 1.00 - 4.00 k/uL [facility] Lymphocytes/100 WBC (Bld) 24.0 % [facility] MCH (RBC) [Entitic mass] 34.0 pg 26.0 - 34.0 pg [facility] MCHC (RBC) [Mass/Vol] 32.6 g/dL 30.5 - 36.0 g/dL [facility] MCV (RBC) [Entitic vol] 104.3 fL High 80.0 - 100.0 fL [facility] Monocytes (Bld) [#/Vol] 0.48 10*3/uL <0.87 k/uL [facility] Monocytes/100 WBC (Bld) 8.9 % [facility] Neutrophils (Bld) [#/Vol] 3.50 10*3/uL 1.45 - 7.50 k/uL [facility] Neutrophils/100 WBC (Bld) 65.0 % [facility] Nucleated RBC (Bld) [#/Vol] <0.01 k/uL [facility] Nucleated RBC/100 WBC (Bld) [Ratio] 0.0 /100 WBC [facility] Platelet mean volume (Bld) [Entitic vol] 9.2 fL 9.0 - 12.7 fL [facility] Platelets (Bld) [#/Vol] 224 10*3/uL 150 - 400 k/uL [facility] RBC (Bld) [#/Vol] 3.03 10*6/uL Low 4.20 - 6.0 0 m/uL [facility] WBC (Bld) [#/Vol] 5.38 10*3/uL 3.70 - 11.00 k/uL [facility] Basophils (Bld) [#/Vol] 10*3/uL Normal <0.11 [facility] Comment on above: Order Comment: Speci men Type: BLOOD SPECIMENOrdering Facility: [facility] Address: [address] [place] [address] Performed By: #### 5 7021-8 ####[facility] LABCLIA [id number] [place] [address] Basophils/100 WBC (Bld) 0.4 % Normal [facility] Comment on above: Order Comment: Speci men Type: BLOOD SPECIMENOrdering Facility: [facility] Address: [address] [place] [address] Performed By: #### 5 7021-8 ####[facility] LABCLIA [id number] [place] [address] Differential cell count method Nom (Bld) Auto Normal [facility] Comment on above: Order Comment: Speci men Type: BLOOD SPECIMENOrdering Facility: [facility] Address: [address] [place] [address] Performed By: #### 5 7021-8 ####[facility] LABCLIA [id number] [place] [address] Eosinophils (Bld) [#/Vol] 0.07 10*3/uL Normal <0.46 [facility] Comment on above: Order Comment: Speci men Type: BLOOD SPECIMENOrdering Facility: [facility] Address: [address] [place] [address] Performed By: #### 5 7021-8 ####[facility] LABCLIA [id number] [place] [address] Eosinophils/100 WBC (Bld) 1.3 % Normal [facility] Comment on above: Order Comment: Speci men Type: BLOOD SPECIMENOrdering Facility: [facility] Address: [address] [place] [address] Performed By: #### 5 7021-8 ####[facility] LABCLIA [id number] [place] [address] Erythrocyte distribution width (RBC) [Ratio] 17.4 % High 11.5-15.0 [facility] Comment on above: Order Comment: Speci men Type: BLOOD SPECIMENOrdering Facility: [facility] Address: [address] [place] [address] Performed By: #### 5 7021-8 ####[facility] LABCLIA [id number] [place] [address] Hematocrit (Bld) [Volume fraction] 31.6 % Low 39.0-51.0 [facility] Comment on above: Order Comment: Speci men Type: BLOOD SPECIMENOrdering Facility: [facility] Address: [address] [place] [address] Performed By: #### 5 7021-8 ####[facility] LABCLIA [id number] [place] [address] Hemoglobin (Bld) [Mass/Vol] 10.3 g/dL Low 13.0-17.0 [facility] Comment on above: Order Comment: Speci men Type: BLOOD SPECIMENOrdering Facility: [facility] Address: [address] [place] [address] Performed By: #### 5 7021-8 ####[facility] LABCLIA [id number] [place] [address] Immature granulocytes (Bld) [#/Vol] 10*3/uL Normal <0.10 [facility] Comment on above: Order Comment: Speci men Type: BLOOD SPECIMENOrdering Facility: [facility] Address: [address] [place] [address] Performed By: #### 5 7021-8 ####[facility] LABCLIA [id number] [place] [address] Immature granulocytes/100 WBC (Bld) 0.4 % Normal [facility] Comment on above: Order Comment: Speci men Type: BLOOD SPECIMENOrdering Facility: [facility] Address: [address] [place] [address] Performed By: #### 5 7021-8 ####[facility] LABCLIA [id number] [place] [address] Lymphocytes (Bld) [#/Vol] 1.29 10*3/uL Normal 1.00-4.00 [facility] Comment on above: Order Comment: Speci men Type: BLOOD SPECIMENOrdering Facility: [facility] Address: [address] [place] [address] Performed By: #### 5 7021-8 ####[facility] LABIA [id number] [place] [address] Lymphocytes/100 WBC (Bld) 24.0 % Normal [facility] Comment on above: Order Comment: Speci men Type: BLOOD SPECIMENOrdering Facility: [facility] Address: [address] [place] [address] Performed By: #### 5 7021-8 ####[facility] LABCLIA [id number] [place] [address] MCH (RBC) [Entitic mass] 34.0 pg Normal 26.0-34.0 [facility] Comment on above: Order Comment: Speci men Type: BLOOD SPECIMENOrdering Facility: [facility] Address: [address] [place] [address] Performed By: #### 5 7021-8 ####[facility] LABCLIA [id number] [place] [address] MCHC (RBC) [Mass/Vol] 32.6 g/dL Normal 30.5-36.0 [facility] Comment on above: Order Comment: Speci men Type: BLOOD SPECIMENOrdering Facility: [facility] Address: [address] [place] [address] Performed By: #### 5 7021-8 ####[facility] LABCLIA [id number] [place] [address] MCV (RBC) [Entitic vol] 104.3 fL High 80.0-100.0 [facility] Comment on above: Order Comment: Speci men Type: BLOOD SPECIMENOrdering Facility: [facility] Address: [address] [place] [address] Performed By: #### 5 7021-8 ####[facility] LABCLIA [id number] [place] [address] Monocytes (Bld) [#/Vol] 0.48 10*3/uL Normal <0.87 [facility] Comment on above: Order Comment: Speci men Type: BLOOD SPECIMENOrdering Facility: [facility] [facility] Address: [address] [place] [address] Performed By: #### 5 7021-8 ####[facility] LABCLIA [id number] [place] [address] Monocytes/100 WBC (Bld) 8.9 % Normal [facility] Comment on above: Order Comment: Speci men Type: BLOOD SPECIMENOrdering Facility: [facility] Address: [address] [place] [address] Performed By: #### 5 7021-8 ####[facility] LABCLIA [id number] [place] [address] Neutrophils (Bld) [#/Vol] 3.50 10*3/uL Normal 1.45-7.50 [facility] Comment on above: Order Comment: Speci men Type: BLOOD SPECIMENOrdering Facility: [facility] Address: [address] [place] [address] Performed By: #### 5 7021-8 ####[facility] LABCLIA [id number] [place] [address] Neutrophils/100 WBC (Bld) 65.0 % Normal [facility] Comment on above: Order Comment: Speci men Type: BLOOD SPECIMENOrdering Facility: [facility] Address: [address] [place] [address] Performed By: #### 5 7021-8 ####[facility] LABCLIA [id number] [place] [address] Nucleated RBC (Bld) [#/Vol] 10*3/uL Normal <0.01 [facility] Comment on above: Order Comment: Speci men Type: BLOOD SPECIMENOrdering Facility: [facility] Address: [address] [place] [address] Performed By: #### 5 7021-8 ####[facility] LABCLIA [id number] [place] [address] Nucleated RBC/100 WBC (Bld) [Ratio] 0.0 /100 WBC Normal [facility] Comment on above: Order Comment: Speci men Type: BLOOD SPECIMENOrdering Facility: [facility] Address: [address] [place] [address] Performed By: #### 5 7021-8 ####[facility] LABCLIA [id number] [place] [address] Platelet mean volume (Bld) [Entitic vol] 9.2 fL Normal 9.0-12.7 [facility] Comment on above: Order Comment: Speci men Type: BLOOD SPECIMENOrdering Facility: [facility] Address: [address] [place] [address] Performed By: #### 5 7021-8 ####[facility] LABCLIA [id number] [place] [address] Platelets (Bld) [#/Vol] 224 10*3/uL Normal 150-400 [facility] Comment on above: Order Comment: Speci men Type: BLOOD SPECIMENOrdering Facility: [facility] Address: [address] [place] [address] Performed By: #### 5 7021-8 ####[facility] LABCLIA [id number] [place] [address] RBC (Bld) [#/Vol] 3.03 10*6/uL Low 4.20-6.00 [facility] Comment on above: Order Comment: Speci men Type: BLOOD SPECIMENOrdering Facility: [facility] Address: [address] [place] [address] Performed By: #### 5 7021-8 ####[facility] LABIA [id number] [place] [address] WBC (Bld) [#/Vol] 5.38 10*3/uL Normal 3.70-11.00 [facility] Comment on above: Order Comment: Speci men Type: BLOOD SPECIMENOrdering Facility: [facility] Address: [address] [place] [address] Performed By: #### 5 7021-8 ####[facility] LABIA [id number] [place] [address] CNOVSPon 08-02-2023 CNOVSP Normal [facility] Cancer Ag19-9 SerPl-aCncon 0 08-02-2023 Cancer Ag 19-9 Qn 1844.0 [arb'U]/mL High <36.0 [facility] Comment on above: Order Comment: Speci men Type: BLOOD SPECIMENOrdering Facility: [facility] Address: [address] [place] [address] Result Comment: Can er antigen 19-9 test is used as an aid in monitoring response to treatment or recurrence in patients with established pancreatic, hepatobiliary, or gastrointestinal malignancies. Clinical correlation is required.The CA 19-9 Antigen test was performed using the Simple-Fillel DXI paramagnetic particle chemiluminescent immunoassay method. Results obtained with different assay methods or kits cannot be used interchangeably. Performed By: #### 2 4108-3 ####[facility] LABCLIA [id number] [place] [address] [place] Comprehensive metabolic 2000 panelon 08-02-2023 Albumin [Mass/Vol] 3.9 g/dL 3.9 - 4.9 g/dL [facility] ALP [Catalytic activity/Vol] 137 U/L High 38 - 113 U/L [facility] ALT [Catalytic activity/Vol] 12 U/L 10 - 54 U/L [facility] Anion gap [Moles/Vol] 10 mmol/L 9 - 18 mmol/L [facility] AST [Catalytic activity/Vol] 13 U/L Low 14 - 40 U/L [facility] Bilirubin [Mass/Vol] 1.0 mg/dL 0.2 - 1 .3 mg/dL [facility] Calcium [Mass/Vol] 10.4 mg/dL High 8.5 - 10. 2 mg/dL [facility] Chloride [Moles/Vol] 105 mmol/L 97 - 10 5 mmol/L [facility] CO2 [Moles/Vol] 24 mmol/L 22 - 30 mmol/L [facility] Creatinine [Mass/Vol] 0.86 mg/dL 0.73 - 1.22 mg/dL [facility] Estimated Glomerular Filtration Rate 92 mL/min/1.73m >=60 mL/min/1.73 m [facility] Glucose [Mass/Vol] 149 mg/dL High 74 - 99 mg/dL [facility] Potassium [Moles/Vol] 4.0 mmol/L 3.7 - 5.1 mmol/L [facility] Protein [Mass/Vol] 6.5 g/dL 6.3 - 8.0 g/dL [facility] Sodium [Moles/Vol] 139 mmol/L 136 - 144 mmol/L [facility] Urea nitrogen [Mass/Vol] 20 mg/dL 9 - 24 mg/dL [facility] Albumin [Mass/Vol] 3.9 g/dL Normal 3.9-4.9 [facility] Comment on above: Order Comment: Speci men Type: BLOOD SPECIMENOrdering Facility: [facility] Address: [address] [place] [address] Performed By: #### 2 4323-8 ####[facility] LABCLIA [id number] [place] [address] ALP [Catalytic activity/Vol] 137 U/L High 38-113 [facility] Comment on above: Order Comment: Speci men Type: BLOOD SPECIMENOrdering Facility: [facility] Address: [address] [place] [address] Performed By: #### 2 4323-8 ####[facility] LABCLIA [id number] [place] [address] ALT [Catalytic activity/Vol] 12 U/L Normal 10-54 [facility] Comment on above: Order Comment: Speci men Type: BLOOD SPECIMENOrdering Facility: [facility] Address: [address] [place] [address] Performed By: #### 2 4323-8 ####[facility] LABCLIA [id number] [place] [address] Anion gap [Moles/Vol] 10 mmol/L Normal 9-18 [facility] Comment on above: Order Comment: Speci men Type: BLOOD SPECIMENOrdering Facility: [facility] Address: [address] [place] [address] Performed By: #### 2 4323-8 ####[facility] LABCLIA [id number] [place] [address] AST [Catalytic activity/Vol] 13 U/L Low 14-40 [facility] Comment on above: Order Comment: Speci men Type: BLOOD SPECIMENOrdering Facility: [facility] Address: [address] [place] [address] Performed By: #### 2 4323-8 ####[facility] LABCLIA [id number] [place] [address] Bilirubin [Mass/Vol] 1.0 mg/dL Normal 0.2-1.3 [facility] Comment on above: Order Comment: Speci men Type: BLOOD SPECIMENOrdering Facility: [facility] Address: [address] [place] [address] Performed By: #### 2 4323-8 ####[facility] LABCLIA [id number] [place] [address] Calcium [Mass/Vol] 10.4 mg/dL High 8.5-10.2 [facility] Comment on above: Order Comment: Speci men Type: BLOOD SPECIMENOrdering Facility: [facility] Address: [address] [place] [address] Performed By: #### 2 4323-8 ####[facility] LABCLIA [id number] [place] [address] Chloride [Moles/Vol] 105 mmol/L Normal 97-105 [facility] Comment on above: Order Comment: Speci men Type: BLOOD SPECIMENOrdering Facility: [facility] Address: [address] [place] [address] Performed By: #### 2 4323-8 ####[facility] LABCLIA [id number] [place] [address] CO2 [Moles/Vol] 24 mmol/L Normal 22-30 [facility] Comment on above: Order Comment: Speci men Type: BLOOD SPECIMENOrdering Facility: [facility] Address: [address] [place] [address] Performed By: #### 2 4323-8 ####[facility] LABCLIA [id number] [place] [address] Creatinine [Mass/Vol] 0.86 mg/dL Normal 0.73-1.22 [facility] Comment on above: Order Comment: Speci men Type: BLOOD SPECIMENOrdering Facility: [facility] Address: [address] [place] [address] Performed By: #### 2 4323-8 ####[facility] LABCLIA [id number] [place] [address] Creatinine and Glomerular filtration rate.predicted panel (S/P/Bld) 92 mL/min/1.73m??? Normal >=60 [facility] Comment on above: Order Comment: Noemí hoff Type: BLOOD SPECIMENOrdering Facility: [facility] Address: [address] [id number] Result Comment: Kathy mated Glomerular Filtration Rate [...] actual GFR. Performed By: #### 2 4323-8 ####[facility] LABCLIA [id number] [place] [address] Glucose [Mass/Vol] 149 mg/dL High 74-99 [facility] Comment on above: Order Comment: Noemí hoff Type: BLOOD SPECIMENOrdering Facility: [facility] Address: [address] [id number] Result Comment: The [place] Diabetes Association (ADA) provides guidance for cutoff [...] Standards of Medical Care in Diabetes 2016, [place] Diabetes Association. Diabetes Care. 2016.39(Suppl 1). Performed By: #### 2 4323-8 ####[facility] LABCLIA [id number] [place] [address] Potassium [Moles/Vol] 4.0 mmol/L Normal 3.7-5.1 [facility] Comment on above: Order Comment: Noemí hoff Type: BLOOD SPECIMENOrdering Facility: [facility] Address: [address] [place] [address] Performed By: #### 2 4323-8 ####[facility] LABCLIA [id number] [place] [address] Protein [Mass/Vol] 6.5 g/dL Normal 6.3-8.0 [facility] Comment on above: Order Comment: Speci men Type: BLOOD SPECIMENOrdering Facility: [facility] Address: [address] [place] [address] Performed By: #### 2 4323-8 ####[facility] LABCLIA [id number] [place] [address] Sodium [Moles/Vol] 139 mmol/L Normal 136-144 [facility] Comment on above: Order Comment: Speci men Type: BLOOD SPECIMENOrdering Facility: [facility] Address: [address] [place] [address] Performed By: #### 2 4323-8 ####[facility] LABCLIA [id number] [place] [address] Urea nitrogen [Mass/Vol] 20 mg/dL Normal 9-24 [facility] Comment on above: Order Comment: Speci men Type: BLOOD SPECIMENOrdering Facility: [facility] Address: [address] [place] [address] Performed By: #### 2 4323-8 ####[facility] LABCLIA [id number] [place] [address] CBC W Auto Differential pane l (Bld)on 07-19-2023 Basophils (Bld) [#/Vol] 0.04 10*3/uL <0.11 k/uL [facility] Basophils/100 WBC (Bld) 0.7 % [facility] Differential cell count method Nom (Bld) Auto [facility] Eosinophils (Bld) [#/Vol] 0.09 10*3/uL <0.46 k/uL [facility] Eosinophils/100 WBC (Bld) 1.5 % [facility] Erythrocyte distribution width (RBC) [Ratio] 17.9 % High 11.5 - 15.0 % [facility] Hematocrit (Bld) [Volume fraction] 32.0 % Low 39.0 - 51.0 % [facility] Hemoglobin (Bld) [Mass/Vol] 10.5 g/dL Low 13.0 - 17.0 g/dL [facility] Immature granulocytes (Bld) [#/Vol] 0.03 10*3/uL <0.10 k/uL [facility] Immature granulocytes/100 WBC (Bld) 0.5 % [facility] Lymphocytes (Bld) [#/Vol] 1.44 10*3/uL 1.00 - 4.00 k/uL [facility] Lymphocytes/100 WBC (Bld) 24.2 % [facility] MCH (RBC) [Entitic mass] 33.9 pg 26.0 - 34.0 pg [facility] MCHC (RBC) [Mass/Vol] 32.8 g/dL 30.5 - 36.0 g/dL [facility] MCV (RBC) [Entitic vol] 103.2 fL High 80.0 - 100.0 fL [facility] Monocytes (Bld) [#/Vol] 0.46 10*3/uL <0.87 k/uL [facility] Monocytes/100 WBC (Bld) 7.7 % [facility] Neutrophils (Bld) [#/Vol] 3.90 10*3/uL 1.45 - 7.50 k/uL [facility] Neutrophils/100 WBC (Bld) 65.4 % [facility] Nucleated RBC (Bld) [#/Vol] <0.01 k/uL [facility] Nucleated RBC/100 WBC (Bld) [Ratio] 0.0 /100 WBC [facility] Platelet mean volume (Bld) [Entitic vol] 9.5 fL 9.0 - 12.7 fL [facility] Platelets (Bld) [#/Vol] 231 10*3/uL 150 - 400 k/uL [facility] RBC (Bld) [#/Vol] 3.10 10*6/uL Low 4.20 - 6.0 0 m/uL [facility] WBC (Bld) [#/Vol] 5.96 10*3/uL 3.70 - 11.00 k/uL [facility] Basophils (Bld) [#/Vol] 0.04 10*3/uL Normal <0.11 [facility] Comment on above: Order Comment: Speci men Type: BLOOD SPECIMENOrdering Facility: [facility] Address: [address] [place] [address] Performed By: #### 5 7021-8 ####[facility] LABCLIA [id number] [place] [address] Basophils/100 WBC (Bld) 0.7 % Normal [facility] Comment on above: Order Comment: Speci men Type: BLOOD SPECIMENOrdering Facility: [facility] Address: [address] [place] [address] Performed By: #### 5 7021-8 ####[facility] LABCLIA [id number] [place] [address] Differential cell count method Nom (Bld) Auto Normal [facility] Comment on above: Order Comment: Speci men Type: BLOOD SPECIMENOrdering Facility: [facility] Address: [address] [place] [address] Performed By: #### 5 7021-8 ####[facility] LABCLIA [id number] [place] [address] Eosinophils (Bld) [#/Vol] 0.09 10*3/uL Normal <0.46 [facility] Comment on above: Order Comment: Speci men Type: BLOOD SPECIMENOrdering Facility: [facility] Address: [address] [place] [address] Performed By: #### 5 7021-8 ####[facility] LABCLIA [id number] [place] [address] Eosinophils/100 WBC (Bld) 1.5 % Normal [facility] Comment on above: Order Comment: Speci men Type: BLOOD SPECIMENOrdering Facility: [facility] Address: [address] [place] [address] Performed By: #### 5 7021-8 ####[facility] LABCLIA [id number] [place] [address] Erythrocyte distribution width (RBC) [Ratio] 17.9 % High 11.5-15.0 [facility] Comment on above: Order Comment: Speci men Type: BLOOD SPECIMENOrdering Facility: [facility] Address: [address] [place] [address] Performed By: #### 5 7021-8 ####[facility] LABCLIA [id number] [place] [address] Hematocrit (Bld) [Volume fraction] 32.0 % Low 39.0-51.0 [facility] Comment on above: Order Comment: Speci men Type: BLOOD SPECIMENOrdering Facility: [facility] Address: [address] [place] [address] Performed By: #### 5 7021-8 ####[facility] LABCLIA [id number] [place] [address] Hemoglobin (Bld) [Mass/Vol] 10.5 g/dL Low 13.0-17.0 [facility] Comment on above: Order Comment: Speci men Type: BLOOD SPECIMENOrdering Facility: [facility] Address: [address] [place] [address] Performed By: #### 5 7021-8 ####[facility] LABCLIA [id number] [place] [address] Immature granulocytes (Bld) [#/Vol] 0.03 10*3/uL Normal <0.10 [facility] Comment on above: Order Comment: Speci men Type: BLOOD SPECIMENOrdering Facility: [facility] Address: [address] [place] [address] Performed By: #### 5 7021-8 ####[facility] LABIA [id number] [place] [address] Immature granulocytes/100 WBC (Bld) 0.5 % Normal [facility] Comment on above: Order Comment: Speci men Type: BLOOD SPECIMENOrdering Facility: [facility] Address: [address] [place] [address] Performed By: #### 5 7021-8 ####[facility] LABCLIA [id number] [place] [address] Lymphocytes (Bld) [#/Vol] 1.44 10*3/uL Normal 1.00-4.00 [facility] Comment on above: Order Comment: Speci men Type: BLOOD SPECIMENOrdering Facility: [facility] Address: [address] [place] [address] Performed By: #### 5 7021-8 ####[facility] LABCLIA [id number] [place] [address] Lymphocytes/100 WBC (Bld) 24.2 % Normal [facility] Comment on above: Order Comment: Speci men Type: BLOOD SPECIMENOrdering Facility: [facility] Address: [address] [place] [address] Performed By: #### 5 7021-8 ####[facility] LABCLIA [id number] [place] [address] MCH (RBC) [Entitic mass] 33.9 pg Normal 26.0-34.0 [facility] Comment on above: Order Comment: Speci men Type: BLOOD SPECIMENOrdering Facility: [facility] Address: [address] [place] [address] Performed By: #### 5 7021-8 ####[facility] LABCLIA [id number] [place] [address] MCHC (RBC) [Mass/Vol] 32.8 g/dL Normal 30.5-36.0 [facility] Comment on above: Order Comment: Speci men Type: BLOOD SPECIMENOrdering Facility: [facility] Address: [address] [place] [address] Performed By: #### 5 7021-8 ####[facility] LABCLIA [id number] [place] [address] MCV (RBC) [Entitic vol] 103.2 fL High 80.0-100.0 [facility] Comment on above: Order Comment: Speci men Type: BLOOD SPECIMENOrdering Facility: [facility] Address: [address] [place] [address] Performed By: #### 5 7021-8 ####[facility] LABCLIA [id number] [place] [address] Monocytes (Bld) [#/Vol] 0.46 10*3/uL Normal <0.87 [facility] Comment on above: Order Comment: Speci men Type: BLOOD SPECIMENOrdering Facility: [facility] Address: [address] [place] [address] Performed By: #### 5 7021-8 ####[facility] LABCLIA [id number] [place] [address] Monocytes/100 WBC (Bld) 7.7 % Normal [facility] Comment on above: Order Comment: Speci men Type: BLOOD SPECIMENOrdering Facility: [facility] Address: [address] [place] [address] Performed By: #### 5 7021-8 ####[facility] LABCLIA [id number] [place] [address] Neutrophils (Bld) [#/Vol] 3.90 10*3/uL Normal 1.45-7.50 [facility] Comment on above: Order Comment: Speci men Type: BLOOD SPECIMENOrdering Facility: [facility] Address: [address] [place] [address] Performed By: #### 5 7021-8 ####[facility] LABCLIA [id number] [place] [address] Neutrophils/100 WBC (Bld) 65.4 % Normal [facility] Comment on above: Order Comment: Speci men Type: BLOOD SPECIMENOrdering Facility: [facility] Address: [address] [place] [address] Performed By: #### 5 7021-8 ####[facility] LABCLIA [id number] [place] [address] Nucleated RBC (Bld) [#/Vol] 10*3/uL Normal <0.01 [facility] Comment on above: Order Comment: Speci men Type: BLOOD SPECIMENOrdering Facility: [facility] Address: [address] [place] [address] Performed By: #### 5 7021-8 ####[facility] LABCLIA [id number] [place] [address] Nucleated RBC/100 WBC (Bld) [Ratio] 0.0 /100 WBC Normal [facility] Comment on above: Order Comment: Speci men Type: BLOOD SPECIMENOrdering Facility: [facility] Address: [address] [place] [address] Performed By: #### 5 7021-8 ####[facility] LABCLIA [id number] [place] [address] Platelet mean volume (Bld) [Entitic vol] 9.5 fL Normal 9.0-12.7 [facility] Comment on above: Order Comment: Speci men Type: BLOOD SPECIMENOrdering Facility: [facility] Address: [address] [place] [address] Performed By: #### 5 7021-8 ####[facility] LABCLIA [id number] [place] [address] Platelets (Bld) [#/Vol] 231 10*3/uL Normal 150-400 [facility] Comment on above: Order Comment: Speci men Type: BLOOD SPECIMENOrdering Facility: [facility] Address: [address] [place] [address] Performed By: #### 5 7021-8 ####[facility] LABCLIA [id number] [place] [address] RBC (Bld) [#/Vol] 3.10 10*6/uL Low 4.20-6.00 [facility] Comment on above: Order Comment: Speci men Type: BLOOD SPECIMENOrdering Facility: [facility] Address: [address] [place] [address] Performed By: #### 5 7021-8 ####[facility] LABCLIA [id number] [place] [address] WBC (Bld) [#/Vol] 5.96 10*3/uL Normal 3.70-11.00 [facility] Comment on above: Order Comment: Speci men Type: BLOOD SPECIMENOrdering Facility: [facility] Address: [address] [place] [address] Performed By: #### 5 7021-8 ####[facility] LABIA [id number] [place] [address] CNCNPATEDon 07-19-2023 CNCNPATED Normal [facility] CNOVSPon 07-19-2023 CNOVSP Normal [facility] Comprehensive metabolic 2000 panelon 07-19-2023 Albumin [Mass/Vol] 3.8 g/dL Low 3.9 - 4.9 g/dL [facility] ALP [Catalytic activity/Vol] 136 U/L High 38 - 113 U/L [facility] ALT [Catalytic activity/Vol] 29 U/L 10 - 54 U/L [facility] Anion gap [Moles/Vol] 11 mmol/L 9 - 18 mmol/L [facility] AST [Catalytic activity/Vol] 24 U/L 14 - 40 U/L [facility] Bilirubin [Mass/Vol] 1.2 mg/dL 0.2 - 1 .3 mg/dL [facility] Calcium [Mass/Vol] 10.7 mg/dL High 8.5 - 10. 2 mg/dL [facility] Chloride [Moles/Vol] 106 mmol/L High 97 - 10 5 mmol/L [facility] CO2 [Moles/Vol] 22 mmol/L 22 - 30 mmol/L [facility] Creatinine [Mass/Vol] 0.83 mg/dL 0.73 - 1.22 mg/dL [facility] Estimated Glomerular Filtration Rate 93 mL/min/1.73m >=60 mL/min/1.73 m [facility] Glucose [Mass/Vol] 152 mg/dL High 74 - 99 mg/dL [facility] Potassium [Moles/Vol] 3.7 mmol/L 3.7 - 5.1 mmol/L [facility] Protein [Mass/Vol] 6.3 g/dL 6.3 - 8.0 g/dL [facility] Sodium [Moles/Vol] 139 mmol/L 136 - 144 mmol/L [facility] Urea nitrogen [Mass/Vol] 14 mg/dL 9 - 24 mg/dL [facility] Albumin [Mass/Vol] 3.8 g/dL Low 3.9-4.9 [facility] Comment on above: Order Comment: Speci men Type: BLOOD SPECIMENOrdering Facility: [facility] Address: [address] [place] [address] Performed By: #### 2 4323-8 ####[facility] LABCLIA [id number] [place] [address] ALP [Catalytic activity/Vol] 136 U/L High 38-113 [facility] Comment on above: Order Comment: Speci men Type: BLOOD SPECIMENOrdering Facility: [facility] Address: [address] [place] [address] Performed By: #### 2 4323-8 ####[facility] LABCLIA [id number] [place] [address] ALT [Catalytic activity/Vol] 29 U/L Normal 10-54 [facility] Comment on above: Order Comment: Speci men Type: BLOOD SPECIMENOrdering Facility: [facility] Address: [address] [place] [address] Performed By: #### 2 4323-8 ####[facility] LABCLIA [id number] [place] [address] Anion gap [Moles/Vol] 11 mmol/L Normal 9-18 [facility] Comment on above: Order Comment: Speci men Type: BLOOD SPECIMENOrdering Facility: [facility] Address: [address] [place] [address] Performed By: #### 2 4323-8 ####[facility] LABCLIA [id number] [place] [address] AST [Catalytic activity/Vol] 24 U/L Normal 14-40 [facility] Comment on above: Order Comment: Speci men Type: BLOOD SPECIMENOrdering Facility: [facility] Address: [address] [place] [address] Performed By: #### 2 4323-8 ####[facility] LABCLIA [id number] [place] [address] Bilirubin [Mass/Vol] 1.2 mg/dL Normal 0.2-1.3 [facility] Comment on above: Order Comment: Speci men Type: BLOOD SPECIMENOrdering Facility: [facility] Address: [address] [place] [address] Performed By: #### 2 4323-8 ####[facility] LABCLIA [id number] [place] [address] Calcium [Mass/Vol] 10.7 mg/dL High 8.5-10.2 [facility] Comment on above: Order Comment: Speci men Type: BLOOD SPECIMENOrdering Facility: [facility] Address: [address] [place] [address] Performed By: #### 2 4323-8 ####[facility] LABCLIA [id number] [place] [address] Chloride [Moles/Vol] 106 mmol/L High 97-105 [facility] Comment on above: Order Comment: Speci men Type: BLOOD SPECIMENOrdering Facility: [facility] Address: [address] [place] [address] Performed By: #### 2 4323-8 ####[facility] LABCLIA [id number] [place] [address] CO2 [Moles/Vol] 22 mmol/L Normal 22-30 [facility] Comment on above: Order Comment: Speci men Type: BLOOD SPECIMENOrdering Facility: [facility] Address: [address] [place] [address] [place] [address] Performed By: #### 2 4323-8 ####[facility] LABCLIA [id number] [place] [address] Creatinine [Mass/Vol] 0.83 mg/dL Normal 0.73-1.22 [facility] Comment on above: Order Comment: Speci men Type: BLOOD SPECIMENOrdering Facility: [facility] Address: [address] [place] [address] Performed By: #### 2 4323-8 ####[facility] LABCLIA [id number] [place] [address] Creatinine and Glomerular filtration rate.predicted panel (S/P/Bld) 93 mL/min/1.73m??? Normal >=60 [facility] Comment on above: Order Comment: Speci men Type: BLOOD SPECIMENOrdering Facility: [facility] Address: [address] [place] [address] Result Comment: Kathy mated Glomerular Filtration Rate [...] actual GFR. Performed By: #### 2 4323-8 ####[facility] LABCLIA [id number] [place] [address] Glucose [Mass/Vol] 152 mg/dL High 74-99 [facility] Comment on above: Order Comment: Speci men Type: BLOOD SPECIMENOrdering Facility: [facility] Address: [address] [id number] Result Comment: The [employer] Diabetes Association (ADA) provides guidance for cutoff [...] Standards of Medical Care in Diabetes 2016, [employer] Diabetes Association. Diabetes Care. 2016.39(Suppl 1). Performed By: #### 2 4323-8 ####[facility] LABCLIA [id number] [place] [address] Potassium [Moles/Vol] 3.7 mmol/L Normal 3.7-5.1 [facility] Comment on above: Order Comment: Speci men Type: BLOOD SPECIMENOrdering Facility: [facility] Address: [address] [place] [address] Performed By: #### 2 4323-8 ####[facility] LABCLIA [id number] [place] [address] Protein [Mass/Vol] 6.3 g/dL Normal 6.3-8.0 [facility] Comment on above: Order Comment: Speci men Type: BLOOD SPECIMENOrdering Facility: [facility] Address: [address] [place] [address] Performed By: #### 2 4323-8 ####[facility] LABCLIA [id number] [place] [address] Sodium [Moles/Vol] 139 mmol/L Normal 136-144 [facility] Comment on above: Order Comment: Speci men Type: BLOOD SPECIMENOrdering Facility: [facility] Address: [address] [place] [address] Performed By: #### 2 4323-8 ####[facility] LABCLIA [id number] [place] [address] Urea nitrogen [Mass/Vol] 14 mg/dL Normal 9-24 [facility] Comment on above: Order Comment: Speci men Type: BLOOD SPECIMENOrdering Facility: [facility] Address: [address] [place] [address] Performed By: #### 2 4323-8 ####[facility] LABCLIA [id number] [place] [address] CBC W Auto Differential pane l (Bld)on 07-05-2023 Basophils (Bld) [#/Vol] 0.04 10*3/uL <0.11 k/uL [facility] Differential cell count method Nom (Bld) Auto [facility] Eosinophils (Bld) [#/Vol] 0.12 10*3/uL <0.46 k/uL [facility] Immature granulocytes (Bld) [#/Vol] <0.10 k/uL [facility] Immature granulocytes/100 WBC (Bld) 0.3 % [facility] Lymphocytes (Bld) [#/Vol] 1.27 10*3/uL 1.00 - 4.00 k/uL [facility] Monocytes (Bld) [#/Vol] 0.41 10*3/uL <0.87 k/uL [facility] Neutrophils (Bld) [#/Vol] 4.04 10*3/uL 1.45 - 7.50 k/uL [facility] Nucleated RBC (Bld) [#/Vol] <0.01 k/uL [facility] Nucleated RBC/100 WBC (Bld) [Ratio] 0.0 /100 WBC [facility] Platelet mean volume (Bld) [Entitic vol] 9.4 fL 9.0 - 12.7 fL [facility] Platelets (Bld) [#/Vol] 211 10*3/uL 150 - 400 k/uL [facility] WBC (Bld) [#/Vol] 5.90 10*3/uL 3.70 - 11.00 k/uL [facility] Basophils (Bld) [#/Vol] 0.04 10*3/uL Normal <0.11 [facility] Comment on above: Order Comment: Speci men Type: BLOOD SPECIMENOrdering Facility: [facility] Address: [address] [place] [address] Performed By: #### 5 7021-8 ####[facility] LABCLIA [id number] [place] [address] Basophils/100 WBC (Bld) 0.7 % Normal [facility] Comment on above: Order Comment: Speci men Type: BLOOD SPECIMENOrdering Facility: [facility] Address: [address] [place] [address] Performed By: #### 5 7021-8 ####[facility] LABCLIA [id number] [place] [address] Differential cell count method Nom (Bld) Auto Normal [facility] Comment on above: Order Comment: Speci men Type: BLOOD SPECIMENOrdering Facility: [facility] Address: [address] [place] [address] Performed By: #### 5 7021-8 ####[facility] LABCLIA [id number] [place] [address] Eosinophils (Bld) [#/Vol] 0.12 10*3/uL Normal <0.46 [facility] Comment on above: Order Comment: Speci men Type: BLOOD SPECIMENOrdering Facility: [facility] Address: [address] [place] [address] Performed By: #### 5 7021-8 ####[facility] LABCLIA [id number] [place] [address] Eosinophils/100 WBC (Bld) 2.0 % Normal [facility] Comment on above: Order Comment: Speci men Type: BLOOD SPECIMENOrdering Facility: [facility] Address: [address] [place] [address] Performed By: #### 5 7021-8 ####[facility] LABCLIA [id number] [place] [address] Erythrocyte distribution width (RBC) [Ratio] 17.7 % High 11.5-15.0 [facility] Comment on above: Order Comment: Speci men Type: BLOOD SPECIMENOrdering Facility: [facility] Address: [address] [place] [address] Performed By: #### 5 7021-8 ####[facility] LABCLIA [id number] [place] [address] Hematocrit (Bld) [Volume fraction] 32.0 % Low 39.0-51.0 [facility] Comment on above: Order Comment: Speci men Type: BLOOD SPECIMENOrdering Facility: [facility] Address: [address] [place] [address] Performed By: #### 5 7021-8 ####[facility] LABCLIA [id number] [place] [address] Hemoglobin (Bld) [Mass/Vol] 10.6 g/dL Low 13.0-17.0 [facility] Comment on above: Order Comment: Speci men Type: BLOOD SPECIMENOrdering Facility: [facility] Address: [address] [place] [address] Performed By: #### 5 7021-8 ####[facility] LABIA [id number] [place] [address] Immature granulocytes (Bld) [#/Vol] 10*3/uL Normal <0.10 [facility] Comment on above: Order Comment: Speci men Type: BLOOD SPECIMENOrdering Facility: [facility] Address: [address] [place] [address] Performed By: #### 5 7021-8 ####[facility] LABCLIA [id number] [place] [address] Immature granulocytes/100 WBC (Bld) 0.3 % Normal [facility] Comment on above: Order Comment: Speci men Type: BLOOD SPECIMENOrdering Facility: [facility] Address: [address] [place] [address] Performed By: #### 5 7021-8 ####[facility] LABIA [id number] [place] [address] Lymphocytes (Bld) [#/Vol] 1.27 10*3/uL Normal 1.00-4.00 [facility] Comment on above: Order Comment: Speci men Type: BLOOD SPECIMENOrdering Facility: [facility] Address: [address] [place] [address] Performed By: #### 5 7021-8 ####[facility] LABCLIA [id number] [place] [address] Lymphocytes/100 WBC (Bld) 21.5 % Normal [facility] Comment on above: Order Comment: Speci men Type: BLOOD SPECIMENOrdering Facility: [facility] Address: [address] [place] [address] Performed By: #### 5 7021-8 ####[facility] LABCLIA [id number] [place] [address] MCH (RBC) [Entitic mass] 33.9 pg Normal 26.0-34.0 [facility] Comment on above: Order Comment: Speci men Type: BLOOD SPECIMENOrdering Facility: [facility] Address: [address] [place] [address] Performed By: #### 5 7021-8 ####[facility] LABCLIA [id number] [place] [address] MCHC (RBC) [Mass/Vol] 33.1 g/dL Normal 30.5-36.0 [facility] Comment on above: Order Comment: Speci men Type: BLOOD SPECIMENOrdering Facility: [facility] Address: [address] [place] [address] Performed By: #### 5 7021-8 ####[facility] LABIA [id number] [place] [address] MCV (RBC) [Entitic vol] 102.2 fL High 80.0-100.0 [facility] Comment on above: Order Comment: Speci men Type: BLOOD SPECIMENOrdering Facility: [facility] Address: [address] [place] [address] Performed By: #### 5 7021-8 ####[facility] LABCLIA [id number] [place] [address] Monocytes (Bld) [#/Vol] 0.41 10*3/uL Normal <0.87 [facility] Comment on above: Order Comment: Speci men Type: BLOOD SPECIMENOrdering Facility: [facility] Address: [address] [place] [address] Performed By: #### 5 7021-8 ####[facility] LABCLIA [id number] [place] [address] Monocytes/100 WBC (Bld) 6.9 % Normal [facility] Comment on above: Order Comment: Speci men Type: BLOOD SPECIMENOrdering Facility: [facility] Address: [address] [place] [address] Performed By: #### 5 7021-8 ####[facility] LABCLIA [id number] [place] [address] Neutrophils (Bld) [#/Vol] 4.04 10*3/uL Normal 1.45-7.50 [facility] Comment on above: Order Comment: Speci men Type: BLOOD SPECIMENOrdering Facility: [facility] Address: [address] [place] [address] Performed By: #### 5 7021-8 ####[facility] LABCLIA [id number] [place] [address] Neutrophils/100 WBC (Bld) 68.6 % Normal [facility] Comment on above: Order Comment: Speci men Type: BLOOD SPECIMENOrdering Facility: [facility] Address: [address] [place] [address] Performed By: #### 5 7021-8 ####[facility] LABCLIA [id number] [place] [address] Nucleated RBC (Bld) [#/Vol] 10*3/uL Normal <0.01 [facility] Comment on above: Order Comment: Speci men Type: BLOOD SPECIMENOrdering Facility: [facility] Address: [address] [place] [address] Performed By: #### 5 7021-8 ####[facility] LABCLIA [id number] [place] [address] Nucleated RBC/100 WBC (Bld) [Ratio] 0.0 /100 WBC Normal [facility] Comment on above: Order Comment: Speci men Type: BLOOD SPECIMENOrdering Facility: [facility] Address: [address] [place] [address] Performed By: #### 5 7021-8 ####[facility] LABCLIA [id number] [place] [address] Platelet mean volume (Bld) [Entitic vol] 9.4 fL Normal 9.0-12.7 [facility] Comment on above: Order Comment: Speci men Type: BLOOD SPECIMENOrdering Facility: [facility] Address: [address] [place] [address] Performed By: #### 5 7021-8 ####[facility] LABCLIA [id number] [place] [address] Platelets (Bld) [#/Vol] 211 10*3/uL Normal 150-400 [facility] Comment on above: Order Comment: Speci men Type: BLOOD SPECIMENOrdering Facility: [facility] Address: [address] [place] [address] Performed By: #### 5 7021-8 ####[facility] LABCLIA [id number] [place] [address] RBC (Bld) [#/Vol] 3.13 10*6/uL Low 4.20-6.00 [facility] Comment on above: Order Comment: Speci men Type: BLOOD SPECIMENOrdering Facility: [facility] Address: [address] [place] [address] Performed By: #### 5 7021-8 ####[facility] LABCLIA [id number] [place] [address] WBC (Bld) [#/Vol] 5.90 10*3/uL Normal 3.70-11.00 [facility] Comment on above: Order Comment: Speci men Type: BLOOD SPECIMENOrdering Facility: [facility] Address: [address] [place], [place] [address] Performed By: #### 5 7021-8 ####[facility] LABCLIA [id number] [place] [address] [facility] CBC W AUTO DIFF BLDon [facility] BASOPHILS # BLD AUTO 0.04 [facility] DIFFERENTIAL METHOD BLD Auto [facility] EOSINOPHIL # BLD AUTO 0.12 [facility] LYMPHOCYTES # BLD AUTO 1.27 [facility] MONOCYTES # BLD AUTO 0.41 [facility] NEUTROPHILS # BLD AUTO 4.04 [facility] NRBC # BLD AUTO <0.01 [facility] NRBC/100 WBC BLD-RTO 0.0 /100 WBC [facility] PLATELET # BLD AUTO 211 [facility] PMV BLD AUTO 9.4 fL 9.0 - 12.7 fL [facility] WBC # BLD AUTO 5.90 [facility] IMM GRANULOCYTES # BLD AUTO <0.03 [facility] IMM GRANULOCYTES/LEUK NFR BLD AUTO 0.3 % [facility] Interpretation and review of laboratory results Abnormal [facility] Specimen Type: BLOOD SPECIMEN Ordering [facility]: [facility] Address: [address] [place] [address] Original Ordering Provider: GRACE NEWBY [facility] CNOVSPon 07-05-2023 CNOVSP Normal [facility] Cancer Ag19-9 SerPl-aCncon 0 07-05-2023 Cancer Ag 19-9 Qn 1918.0 [arb'U]/mL High <36.0 [facility] Comment on above: Order Comment: Speci men Type: BLOOD SPECIMENOrdering Facility: [facility] Address: [address] [place], [place] [id number] Result Comment: [facility] er antigen 19-9 test is used [...] used interchangeably. Performed By: #### 2 4108-3 ####[facility] LABCLIA [id number] [address] OF [facility] Comprehensive metabolic 2000 panelon 07-05-2023 Albumin [Mass/Vol] 3.8 g/dL Low 3.9 - 4.9 g/dL [facility] ALP [Catalytic activity/Vol] 128 U/L High 38 - 113 U/L [facility] ALT [Catalytic activity/Vol] 24 U/L 10 - 54 U/L [facility] Anion gap [Moles/Vol] 10 mmol/L 9 - 18 mmol/L [facility] AST [Catalytic activity/Vol] 14 U/L 14 - 40 U/L [facility] Bilirubin [Mass/Vol] 1.3 mg/dL 0.2 - 1 .3 mg/dL [facility] Calcium [Mass/Vol] 10.3 mg/dL High 8.5 - 10. 2 mg/dL [facility] Chloride [Moles/Vol] 106 mmol/L High 97 - 10 5 mmol/L [facility] CO2 [Moles/Vol] 23 mmol/L 22 - 30 mmol/L [facility] Creatinine [Mass/Vol] 0.85 mg/dL 0.73 - 1.22 mg/dL [facility] Estimated Glomerular Filtration Rate 92 mL/min/1.73m >=60 mL/min/1.73 m [facility] Glucose [Mass/Vol] 164 mg/dL High 74 - 99 mg/dL [facility] Potassium [Moles/Vol] 3.6 mmol/L Low 3.7 - 5.1 mmol/L [facility] Protein [Mass/Vol] 6.3 g/dL 6.3 - 8.0 g/dL [facility] Sodium [Moles/Vol] 139 mmol/L 136 - 144 mmol/L [facility] Urea nitrogen [Mass/Vol] 19 mg/dL 9 - 24 mg/dL [facility] Albumin [Mass/Vol] 3.8 g/dL Low 3.9-4.9 [facility] Comment on above: Order Comment: Speci men Type: BLOOD SPECIMENOrdering Facility: [facility] Address: [address] [place] [address] Performed By: #### 2 4323-8 ####[facility] LABCLIA [id number] [place] [address] ALP [Catalytic activity/Vol] 128 U/L High 38-113 [facility] Comment on above: Order Comment: Speci men Type: BLOOD SPECIMENOrdering Facility: [facility] Address: [address] [place] [address] Performed By: #### 2 4323-8 ####[facility] LABCLIA [id number] [place] [address] ALT [Catalytic activity/Vol] 24 U/L Normal 10-54 [facility] Comment on above: Order Comment: Speci men Type: BLOOD SPECIMENOrdering Facility: [facility] Address: [address] [place] [address] Performed By: #### 2 4323-8 ####[facility] LABCLIA [id number] [place] [address] Anion gap [Moles/Vol] 10 mmol/L Normal 9-18 [facility] Comment on above: Order Comment: Speci men Type: BLOOD SPECIMENOrdering Facility: [facility] Address: [address] [place] [address] Performed By: #### 2 4323-8 ####[facility] LABCLIA [id number] [place] [address] AST [Catalytic activity/Vol] 14 U/L Normal 14-40 [facility] Comment on above: Order Comment: Speci men Type: BLOOD SPECIMENOrdering Facility: [facility] Address: [address] [place] [address] Performed By: #### 2 4323-8 ####[facility] LABCLIA [id number] [place] [address] Bilirubin [Mass/Vol] 1.3 mg/dL Normal 0.2-1.3 [facility] Comment on above: Order Comment: Speci men Type: BLOOD SPECIMENOrdering Facility: [facility] Address: [address] [place] [address] Performed By: #### 2 4323-8 ####[facility] LABCLIA [id number] [place] [address] Calcium [Mass/Vol] 10.3 mg/dL High 8.5-10.2 [facility] Comment on above: Order Comment: Speci men Type: BLOOD SPECIMENOrdering Facility: [facility] Address: [address] [place] [address] Performed By: #### 2 4323-8 ####[facility] LABCLIA [id number] [place] [address] Chloride [Moles/Vol] 106 mmol/L High 97-105 [facility] Comment on above: Order Comment: Speci men Type: BLOOD SPECIMENOrdering Facility: [facility] Address: [address] [place] [address] Performed By: #### 2 4323-8 ####[facility] LABCLIA [id number] [place] [address] CO2 [Moles/Vol] 23 mmol/L Normal 22-30 [facility] Comment on above: Order Comment: Speci men Type: BLOOD SPECIMENOrdering Facility: [facility] Address: [address] [place] [address] Performed By: #### 2 4323-8 ####[facility] LABCLIA [id number] [place] [address] Creatinine [Mass/Vol] 0.85 mg/dL Normal 0.73-1.22 [facility] Comment on above: Order Comment: Speci men Type: BLOOD SPECIMENOrdering Facility: [facility] Address: [address] [place], [place] [id number] Performed By: #### 2 4323-8 ####[facility] LABCLIA [id number] [place] [address] Creatinine and Glomerular filtration rate.predicted panel (S/P/Bld) 92 mL/min/1.73m??? Normal >=60 [facility] Comment on above: Order Comment: Rajanimack hoff Type: BLOOD SPECIMENOrdering Facility: [facility] Address: [address] [place] [address] Result Comment: Kathy mated Glomerular Filtration Rate [...] actual GFR. Performed By: #### 2 4323-8 ####[facility] LABIA [id number] [place] [address] Glucose [Mass/Vol] 164 mg/dL High 74-99 [facility] Comment on above: Order Comment: Speci luis eduardo Type: BLOOD SPECIMENOrdering Facility: [facility] Address: [address] [place] [address] Result Comment: The [employer] (ADA) provides guidance for cutoff [...] Standards of Medical Care in Diabetes 2016, [employer]. Diabetes Care. 2016.39(Suppl 1). Performed By: #### 2 4323-8 ####[facility] LABCLIA [id number] [place] [address] Potassium [Moles/Vol] 3.6 mmol/L Low 3.7-5.1 [facility] Comment on above: Order Comment: Speci men Type: BLOOD SPECIMENOrdering Facility: [facility] Address: [address] [place] [address] Performed By: #### 2 4323-8 ####[facility] LABCLIA [id number] [place] [address] Protein [Mass/Vol] 6.3 g/dL Normal 6.3-8.0 [facility] Comment on above: Order Comment: Speci men Type: BLOOD SPECIMENOrdering Facility: [facility] Address: [address] [place] [address] Performed By: #### 2 4323-8 ####[facility] LABCLIA [id number] [place] [address] Sodium [Moles/Vol] 139 mmol/L Normal 136-144 [facility] Comment on above: Order Comment: Speci men Type: BLOOD SPECIMENOrdering Facility: [facility] Address: [address] [place] [address] Performed By: #### 2 4323-8 ####[facility] LABCLIA [id number] [place] [address] Urea nitrogen [Mass/Vol] 19 mg/dL Normal 9-24 [facility] Comment on above: Order Comment: Speci men Type: BLOOD SPECIMENOrdering Facility: [facility] Address: [address] [place] [address] Performed By: #### 2 4323-8 ####[facility] LABCLIA [id number] [place] [address] Laboratory - Hematology and Cell countson 07-05-2023 Basophils/100 WBC (Bld) 0.7 % [facility] Eosinophils/100 WBC (Bld) 2.0 % [facility] Erythrocyte distribution width (RBC) [Ratio] 17.7 % High 11.5 - 15.0 % [facility] Hematocrit (Bld) [Volume fraction] 32.0 % Low 39.0 - 51.0 % [facility] Hemoglobin (Bld) [Mass/Vol] 10.6 g/dL Low 13.0 - 17.0 g/dL [facility] Lymphocytes/100 WBC (Bld) 21.5 % [facility] MCH (RBC) [Entitic mass] 33.9 pg 26.0 - 34.0 pg [facility] MCHC (RBC) [Mass/Vol] 33.1 g/dL 30.5 - 36.0 g/dL [facility] MCV (RBC) [Entitic vol] 102.2 fL High 80.0 - 100.0 fL [facility] Monocytes/100 WBC (Bld) 6.9 % [facility] Neutrophils/100 WBC (Bld) 68.6 % [facility] RBC (Bld) [#/Vol] 3.13 10*6/uL Low 4.20 - 6.0 0 m/uL [facility] CNPNon 06-23-2023 CNPN Normal [facility] CBC W Auto Differential pane l (Bld)on 06-21-2023 Basophils (Bld) [#/Vol] 0.03 10*3/uL Normal <0.11 [facility] Comment on above: Order Comment: Speci men Type: BLOOD SPECIMENOrdering Facility: [facility] Address: [address] [place] [address] Performed By: #### 5 7021-8 ####[facility] LABIA [id number] [place] [address] Basophils/100 WBC (Bld) 0.4 % Normal [facility] Comment on above: Order Comment: Speci men Type: BLOOD SPECIMENOrdering Facility: [facility] Address: [address] [place] [address] Performed By: #### 5 7021-8 ####[facility] LABIA [id number] [place] [address] Differential cell count method Nom (Bld) Auto Normal [facility] Comment on above: Order Comment: Speci men Type: BLOOD SPECIMENOrdering Facility: [facility] Address: [address] [place] [address] Performed By: #### 5 7021-8 ####[facility] LABCLIA [id number] [place] [address] Eosinophils (Bld) [#/Vol] 0.07 10*3/uL Normal <0.46 [facility] Comment on above: Order Comment: Speci men Type: BLOOD SPECIMENOrdering Facility: [facility] Address: [address] [place] [address] Performed By: #### 5 7021-8 ####[facility] LABCLIA [id number] [place] [address] Eosinophils/100 WBC (Bld) 0.9 % Normal [facility] Comment on above: Order Comment: Speci men Type: BLOOD SPECIMENOrdering Facility: [facility] Address: [address] [place] [address] Performed By: #### 5 7021-8 ####[facility] LABIA [id number] [place] [address] Erythrocyte distribution width (RBC) [Ratio] 16.7 % High 11.5-15.0 [facility] Comment on above: Order Comment: Speci men Type: BLOOD SPECIMENOrdering Facility: [facility] Address: [address] [place] [address] Performed By: #### 5 7021-8 ####[facility] LABCLIA [id number] [place] [address] Hematocrit (Bld) [Volume fraction] 29.9 % Low 39.0-51.0 [facility] Comment on above: Order Comment: Speci men Type: BLOOD SPECIMENOrdering Facility: [facility] Address: [address] [place] [address] Performed By: #### 5 7021-8 ####[facility] LABIA [id number] [place] [address] Hemoglobin (Bld) [Mass/Vol] 10.1 g/dL Low 13.0-17.0 [facility] Comment on above: Order Comment: Speci men Type: BLOOD SPECIMENOrdering Facility: [facility] Address: [address] [place] [address] Performed By: #### 5 7021-8 ####[facility] LABCLIA [id number] [place] [address] Immature granulocytes (Bld) [#/Vol] 0.03 10*3/uL Normal <0.10 [facility] Comment on above: Order Comment: Speci men Type: BLOOD SPECIMENOrdering Facility: [facility] Address: [address] [place] [address] Performed By: #### 5 7021-8 ####[facility] LABCLIA [id number] [place] [address] Immature granulocytes/100 WBC (Bld) 0.4 % Normal [facility] Comment on above: Order Comment: Speci men Type: BLOOD SPECIMENOrdering Facility: [facility] Address: [address] [place] [address] Performed By: #### 5 7021-8 ####[facility] LABCLIA [id number] [place] [address] Lymphocytes (Bld) [#/Vol] 1.48 10*3/uL Normal 1.00-4.00 [facility] Comment on above: Order Comment: Speci men Type: BLOOD SPECIMENOrdering Facility: [facility] Address: [address] [place] [address] Performed By: #### 5 7021-8 ####[facility] LABCLIA [id number] [place] [address] Lymphocytes/100 WBC (Bld) 20.0 % Normal [facility] Comment on above: Order Comment: Speci men Type: BLOOD SPECIMENOrdering Facility: [facility] Address: [address] [place] [address] Performed By: #### 5 7021-8 ####[facility] LABCLIA [id number] [place] [address] MCH (RBC) [Entitic mass] 34.0 pg Normal 26.0-34.0 [facility] Comment on above: Order Comment: Speci men Type: BLOOD SPECIMENOrdering Facility: [facility] Address: [address] [place] [address] Performed By: #### 5 7021-8 ####[facility] LABCLIA [id number] [place] [address] MCHC (RBC) [Mass/Vol] 33.8 g/dL Normal 30.5-36.0 [facility] Comment on above: Order Comment: Speci men Type: BLOOD SPECIMENOrdering Facility: [facility] Address: [address] [place] [address] Performed By: #### 5 7021-8 ####[facility] LABCLIA [id number] [place] [address] MCV (RBC) [Entitic vol] 100.7 fL High 80.0-100.0 [facility] Comment on above: Order Comment: Speci men Type: BLOOD SPECIMENOrdering Facility: [facility] Address: [address] [place] [address] Performed By: #### 5 7021-8 ####[facility] LABCLIA [id number] [place] [address] Monocytes (Bld) [#/Vol] 0.38 10*3/uL Normal <0.87 [facility] Comment on above: Order Comment: Speci men Type: BLOOD SPECIMENOrdering Facility: [facility] Address: [address] [place] [address] Performed By: #### 5 7021-8 ####[facility] LABCLIA [id number] [place] [address] Monocytes/100 WBC (Bld) 5.1 % Normal [facility] Comment on above: Order Comment: Speci men Type: BLOOD SPECIMENOrdering Facility: [facility] Address: [address] [place] [address] Performed By: #### 5 7021-8 ####[facility] LABCLIA [id number] [place] [address] Neutrophils (Bld) [#/Vol] 5.41 10*3/uL Normal 1.45-7.50 [facility] Comment on above: Order Comment: Speci men Type: BLOOD SPECIMENOrdering Facility: [facility] Address: [address] [place] [address] Performed By: #### 5 7021-8 ####[facility] LABCLIA [id number] [place] [address] Neutrophils/100 WBC (Bld) 73.2 % Normal [facility] Comment on above: Order Comment: Speci men Type: BLOOD SPECIMENOrdering Facility: [facility] Address: [address] [place] [address] Performed By: #### 5 7021-8 ####[facility] LABCLIA [id number] [place] [address] Nucleated RBC (Bld) [#/Vol] 10*3/uL Normal <0.01 [facility] Comment on above: Order Comment: Speci men Type: BLOOD SPECIMENOrdering Facility: [facility] Address: [address] [place] [address] Performed By: #### 5 7021-8 ####[facility] LABCLIA [id number] [place] [address] Nucleated RBC/100 WBC (Bld) [Ratio] 0.0 /100 WBC Normal [facility] Comment on above: Order Comment: Speci men Type: BLOOD SPECIMENOrdering Facility: [facility] Address: [address] [place] [address] Performed By: #### 5 7021-8 ####[facility] LABCLIA [id number] [place] [address] Platelet mean volume (Bld) [Entitic vol] 9.0 fL Normal 9.0-12.7 [facility] Comment on above: Order Comment: Speci men Type: BLOOD SPECIMENOrdering Facility: [facility] Address: [address] [place] [address] Performed By: #### 5 7021-8 ####[facility] LABIA [id number] [place] [address] Platelets (Bld) [#/Vol] 258 10*3/uL Normal 150-400 [facility] Comment on above: Order Comment: Speci men Type: BLOOD SPECIMENOrdering Facility: [facility] Address: [address] [place] [address] Performed By: #### 5 7021-8 ####[facility] LABIA [id number] [place] [address] RBC (Bld) [#/Vol] 2.97 10*6/uL Low 4.20-6.00 [facility] Comment on above: Order Comment: Speci men Type: BLOOD SPECIMENOrdering Facility: [facility] Address: [address] [place] [address] Performed By: #### 5 7021-8 ####[facility] LABIA [id number] [place] [address] WBC (Bld) [#/Vol] 7.40 10*3/uL Normal 3.70-11.00 [facility] Comment on above: Order Comment: Speci men Type: BLOOD SPECIMENOrdering Facility: [facility] Address: [address] [place] [address] Performed By: #### 5 7021-8 ####[facility] LABIA [id number] [place] [address] CNCNPATEDon 06-21-2023 CNCNPATED Normal [facility] CNOVSPon 06-21-2023 CNOVSP Normal [facility] Comprehensive metabolic 2000 panelon 06-21-2023 Albumin [Mass/Vol] 3.8 g/dL Low 3.9-4.9 [facility] Comment on above: Order Comment: Speci men Type: BLOOD SPECIMENOrdering Facility: [facility] Address: [address] [place] [address] Performed By: #### 2 4323-8 ####[facility] LABCLIA [id number] [place] [address] ALP [Catalytic activity/Vol] 121 U/L High 38-113 [facility] Comment on above: Order Comment: Speci men Type: BLOOD SPECIMENOrdering Facility: [facility] Address: [address] [place] [address] Performed By: #### 2 4323-8 ####[facility] LABCLIA [id number] [place] [address] ALT [Catalytic activity/Vol] 16 U/L Normal 10-54 [facility] Comment on above: Order Comment: Speci men Type: BLOOD SPECIMENOrdering Facility: [facility] Address: [address] [place] [address] Performed By: #### 2 4323-8 ####[facility] LABCLIA [id number] [place] [address] Anion gap [Moles/Vol] 9 mmol/L Normal 9-18 [facility] Comment on above: Order Comment: Speci men Type: BLOOD SPECIMENOrdering Facility: [facility] Address: [address] [place] [address] Performed By: #### 2 4323-8 ####[facility] LABCLIA [id number] [place] [address] AST [Catalytic activity/Vol] 15 U/L Normal 14-40 [facility] Comment on above: Order Comment: Speci men Type: BLOOD SPECIMENOrdering Facility: [facility] Address: [address] [place] [address] Performed By: #### 2 4323-8 ####[facility] LABCLIA [id number] [place] [address] Bilirubin [Mass/Vol] 1.2 mg/dL Normal 0.2-1.3 [facility] Comment on above: Order Comment: Speci men Type: BLOOD SPECIMENOrdering Facility: [facility] Address: [address] [place] [address] Performed By: #### 2 4323-8 ####[facility] LABCLIA [id number] [place] [address] Calcium [Mass/Vol] 10.2 mg/dL Normal 8.5-10.2 [facility] Comment on above: Order Comment: Speci men Type: BLOOD SPECIMENOrdering Facility: [facility] Address: [address] [place] [address] Performed By: #### 2 4323-8 ####[facility] LABCLIA [id number] [place] [address] Chloride [Moles/Vol] 107 mmol/L High 97-105 [facility] Comment on above: Order Comment: Speci men Type: BLOOD SPECIMENOrdering Facility: [facility] Address: [address] [place] [address] Performed By: #### 2 4323-8 ####[facility] LABCLIA [id number] [place] [address] CO2 [Moles/Vol] 23 mmol/L Normal 22-30 [facility] Comment on above: Order Comment: Speci men Type: BLOOD SPECIMENOrdering Facility: [facility] Address: [address] [place] [address] Performed By: #### 2 4323-8 ####[facility] LABCLIA [id number] [place] [address] Creatinine [Mass/Vol] 0.75 mg/dL Normal 0.73-1.22 [facility] Comment on above: Order Comment: Speci men Type: BLOOD SPECIMENOrdering Facility: [facility] Address: [address] [place] [address] Performed By: #### 2 4323-8 ####[facility] LABCLIA [id number] [place] [address] Creatinine and Glomerular filtration rate.predicted panel (S/P/Bld) 96 mL/min/1.73m??? Normal >=60 [facility] Comment on above: Order Comment: Speci men Type: BLOOD SPECIMENOrdering Facility: [facility] Address: [address] [place] [address] Result Comment: Kathy mated Glomerular Filtration Rate [...] actual GFR. Performed By: #### 2 4323-8 ####[facility] LABCLIA [id number] [place] [address] Glucose [Mass/Vol] 156 mg/dL High 74-99 [facility] Comment on above: Order Comment: Speci men Type: BLOOD SPECIMENOrdering Facility: [facility] Address: [address] [place] [address] Result Comment: The [employer] Diabetes Association (ADA) provides guidance for cutoff [...] Standards of Medical Care in Diabetes 2016, [employer]. Diabetes Care. 2016.39(Suppl 1). Performed By: #### 2 4323-8 ####[facility] LABCLIA [id number] [place] [address] Potassium [Moles/Vol] 3.6 mmol/L Low 3.7-5.1 [facility] Comment on above: Order Comment: Speci men Type: BLOOD SPECIMENOrdering Facility: [facility] Address: [address] [place] [address] Performed By: #### 2 4323-8 ####[facility] LABCLIA [id number] [place] [address] Protein [Mass/Vol] 6.1 g/dL Low 6.3-8.0 [facility] Comment on above: Order Comment: Speci men Type: BLOOD SPECIMENOrdering Facility: [facility] Address: [address] [place] [address] Performed By: #### 2 4323-8 ####[facility] LABCLIA [id number] [place] [address] Sodium [Moles/Vol] 139 mmol/L Normal 136-144 [facility] Comment on above: Order Comment: Speci men Type: BLOOD SPECIMENOrdering Facility: [facility] Address: [address] [place], [place] [address] Performed By: #### 2 4323-8 ####[facility] LABCLIA [id number] [place] [address] Urea nitrogen [Mass/Vol] 13 mg/dL Normal 9-24 [facility] Comment on above: Order Comment: Speci men Type: BLOOD SPECIMENOrdering Facility: [facility] Address: [address] [place] [address] Performed By: #### 2 4323-8 ####[facility] LABCLIA [id number] [place] [address] CNPNon 06-12-2023 CNPN Normal [facility] CNPNon 06-08-2023 CNPN Normal [facility] CBC W Auto Differential pane l (Bld)on 06-07-2023 Basophils (Bld) [#/Vol] 0.04 10*3/uL Normal <0.11 [facility] Comment on above: Order Comment: Speci men Type: BLOOD SPECIMENOrdering Facility: [facility] Address: [address] [place] [address] Performed By: #### 5 7021-8 ####[facility] LABCLIA [id number] [place] [address] Basophils/100 WBC (Bld) 0.4 % Normal [facility] Comment on above: Order Comment: Speci men Type: BLOOD SPECIMENOrdering Facility: [facility] Address: [address] [place] [address] Performed By: #### 5 7021-8 ####[facility] LABCLIA [id number] [place] [address] Differential cell count method Nom (Bld) Auto Normal [facility] Comment on above: Order Comment: Speci men Type: BLOOD SPECIMENOrdering Facility: [facility] Address: [address] [place] [address] Performed By: #### 5 7021-8 ####[facility] LABCLIA [id number] [place] [address] Eosinophils (Bld) [#/Vol] 10*3/uL Normal <0.46 [facility] Comment on above: Order Comment: Speci men Type: BLOOD SPECIMENOrdering Facility: [facility] Address: [address] [place] [address] Performed By: #### 5 7021-8 ####[facility] LABCLIA [id number] [place] [address] Eosinophils/100 WBC (Bld) 0.1 % Normal [facility] Comment on above: Order Comment: Speci men Type: BLOOD SPECIMENOrdering Facility: [facility] Address: [address] [place] [address] Performed By: #### 5 7021-8 ####[facility] LABCLIA [id number] [place] [address] Erythrocyte distribution width (RBC) [Ratio] 15.4 % High 11.5-15.0 [facility] Comment on above: Order Comment: Speci men Type: BLOOD SPECIMENOrdering Facility: [facility] Address: [address] [place] [address] Performed By: #### 5 7021-8 ####[facility] LABCLIA [id number] [place] [address] Hematocrit (Bld) [Volume fraction] 35.8 % Low 39.0-51.0 [facility] Comment on above: Order Comment: Speci men Type: BLOOD SPECIMENOrdering Facility: [facility] Address: [address] [place] [address] Performed By: #### 5 7021-8 ####[facility] LABCLIA [id number] [place] [address] Hemoglobin (Bld) [Mass/Vol] 11.7 g/dL Low 13.0-17.0 [facility] Comment on above: Order Comment: Speci men Type: BLOOD SPECIMENOrdering Facility: [facility] Address: [address] [place] [address] Performed By: #### 5 7021-8 ####[facility] LABCLIA [id number] [place] [address] Immature granulocytes (Bld) [#/Vol] 0.04 10*3/uL Normal <0.10 [facility] Comment on above: Order Comment: Speci men Type: BLOOD SPECIMENOrdering Facility: [facility] Address: [address] [place] [address] Performed By: #### 5 7021-8 ####[facility] LABCLIA [id number] [place] [address] Immature granulocytes/100 WBC (Bld) 0.4 % Normal [facility] Comment on above: Order Comment: Speci men Type: BLOOD SPECIMENOrdering Facility: [facility] Address: [address] [place] [address] Performed By: #### 5 7021-8 ####[facility] LABCLIA [id number] [place] [address] Lymphocytes (Bld) [#/Vol] 1.39 10*3/uL Normal 1.00-4.00 [facility] Comment on above: Order Comment: Speci men Type: BLOOD SPECIMENOrdering Facility: [facility] Address: [address] [place] [address] Performed By: #### 5 7021-8 ####[facility] LABCLIA [id number] [place] [address] Lymphocytes/100 WBC (Bld) 12.4 % Normal [facility] Comment on above: Order Comment: Speci men Type: BLOOD SPECIMENOrdering Facility: [facility] Address: [address] [place] [address] Performed By: #### 5 7021-8 ####[facility] LABCLIA [id number] [place] [address] MCH (RBC) [Entitic mass] 33.0 pg Normal 26.0-34.0 [facility] Comment on above: Order Comment: Speci men Type: BLOOD SPECIMENOrdering Facility: [facility] Address: [address] [place] [address] Performed By: #### 5 7021-8 ####[facility] LABCLIA [id number] [place] [address] MCHC (RBC) [Mass/Vol] 32.7 g/dL Normal 30.5-36.0 [facility] Comment on above: Order Comment: Speci men Type: BLOOD SPECIMENOrdering Facility: [facility] Address: [address] [place] [address] Performed By: #### 5 7021-8 ####[facility] LABCLIA [id number] [place] [address] MCV (RBC) [Entitic vol] 100.8 fL High 80.0-100.0 [facility] Comment on above: Order Comment: Speci men Type: BLOOD SPECIMENOrdering Facility: [facility] Address: [address] [place] [address] Performed By: #### 5 7021-8 ####[facility] LABCLIA [id number] [place] [address] Monocytes (Bld) [#/Vol] 0.76 10*3/uL Normal <0.87 [facility] Comment on above: Order Comment: Speci men Type: BLOOD SPECIMENOrdering Facility: [facility] Address: [address] [place] [address] Performed By: #### 5 7021-8 ####[facility] LABCLIA [id number] [place] [address] Monocytes/100 WBC (Bld) 6.8 % Normal [facility] Comment on above: Order Comment: Speci men Type: BLOOD SPECIMENOrdering Facility: [facility] Address: [address] [place] [address] Performed By: #### 5 7021-8 ####[facility] LABCLIA [id number] [place] [address] Neutrophils (Bld) [#/Vol] 8.98 10*3/uL High 1.45-7.50 [facility] Comment on above: Order Comment: Speci men Type: BLOOD SPECIMENOrdering Facility: [facility] Address: [address] [place] [address] Performed By: #### 5 7021-8 ####[facility] LABCLIA [id number] [place] [address] Neutrophils/100 WBC (Bld) 79.9 % Normal [facility] Comment on above: Order Comment: Speci men Type: BLOOD SPECIMENOrdering Facility: [facility] Address: [address] [place] [address] Performed By: #### 5 7021-8 ####[facility] LABCLIA [id number] [place] [address] Nucleated RBC (Bld) [#/Vol] 10*3/uL Normal <0.01 [facility] Comment on above: Order Comment: Speci men Type: BLOOD SPECIMENOrdering Facility: [facility] Address: [address] [place] [address] Performed By: #### 5 7021-8 ####[facility] LABCLIA [id number] [place] [address] Nucleated RBC/100 WBC (Bld) [Ratio] 0.0 /100 WBC Normal [facility] Comment on above: Order Comment: Speci men Type: BLOOD SPECIMENOrdering Facility: [facility] Address: [address] [place] [address] Performed By: #### 5 7021-8 ####[facility] LABCLIA [id number] [place] [address] Platelet mean volume (Bld) [Entitic vol] 9.9 fL Normal 9.0-12.7 [facility] Comment on above: Order Comment: Speci men Type: BLOOD SPECIMENOrdering Facility: [facility] Address: [address] [place] [address] Performed By: #### 5 7021-8 ####[facility] LABCLIA [id number] [place] [address] Platelets (Bld) [#/Vol] 297 10*3/uL Normal 150-400 [facility] Comment on above: Order Comment: Speci men Type: BLOOD SPECIMENOrdering Facility: [facility] Address: [address] [place] [address] Performed By: #### 5 7021-8 ####[facility] LABCLIA [id number] [place] [address] RBC (Bld) [#/Vol] 3.55 10*6/uL Low 4.20-6.00 [facility] Comment on above: Order Comment: Speci men Type: BLOOD SPECIMENOrdering Facility: [facility] Address: [address] [place] [address] Performed By: #### 5 7021-8 ####[facility] LABCLIA [id number] [place] [address] WBC (Bld) [#/Vol] 11.22 10*3/uL High 3.70-11.00 [facility] Comment on above: Order Comment: Speci men Type: BLOOD SPECIMENOrdering Facility: [facility] Address: [address] [place] [address] Performed By: #### 5 7021-8 ####[facility] LABCLIA [id number] [place] [address] CNCNPATEDon 06-07-2023 CNCNPATED Normal [facility] CNNURSEon 06-07-2023 CNNURSE Normal [facility] CNOVSPon 06-07-2023 CNOVSP Normal [facility] CNPNon 06-07-2023 CNPN Normal [facility] Comprehensive metabolic 2000 panelon 06-07-2023 Albumin [Mass/Vol] 4.3 g/dL Normal 3.9-4.9 [facility] Comment on above: Order Comment: Speci men Type: BLOOD SPECIMENOrdering Facility: [facility] Address: [address] [place] [address] Performed By: #### 2 4323-8 ####[facility] LABIA [id number] [place] [address] ALP [Catalytic activity/Vol] 127 U/L High 38-113 [facility] Comment on above: Order Comment: Speci men Type: BLOOD SPECIMENOrdering Facility: [facility] [facility] Address: [address] [place] [address] Performed By: #### 2 4323-8 ####[facility] LABCLIA [id number] [place] [address] ALT [Catalytic activity/Vol] 34 U/L Normal 10-54 [facility] Comment on above: Order Comment: Speci men Type: BLOOD SPECIMENOrdering Facility: [facility] Address: [address] [place] [address] Performed By: #### 2 4323-8 ####[facility] LABCLIA [id number] [place] [address] Anion gap [Moles/Vol] 9 mmol/L Normal 9-18 [facility] Comment on above: Order Comment: Speci men Type: BLOOD SPECIMENOrdering Facility: [facility] Address: [address] [place] [address] Performed By: #### 2 4323-8 ####[facility] LABCLIA [id number] [place] [address] AST [Catalytic activity/Vol] 25 U/L Normal 14-40 [facility] Comment on above: Order Comment: Speci men Type: BLOOD SPECIMENOrdering Facility: [facility] Address: [address] [place] [address] Performed By: #### 2 4323-8 ####[facility] LABCLIA [id number] [place] [address] Bilirubin [Mass/Vol] 1.3 mg/dL Normal 0.2-1.3 [facility] Comment on above: Order Comment: Speci men Type: BLOOD SPECIMENOrdering Facility: [facility] Address: [address] [place] [address] Performed By: #### 2 4323-8 ####[facility] LABCLIA [id number] [place] [address] Calcium [Mass/Vol] 10.7 mg/dL High 8.5-10.2 [facility] Comment on above: Order Comment: Speci men Type: BLOOD SPECIMENOrdering Facility: [facility] Address: [address] [place] [address] Performed By: #### 2 4323-8 ####[facility] LABCLIA [id number] [place] [address] Chloride [Moles/Vol] 103 mmol/L Normal 97-105 [facility] Comment on above: Order Comment: Speci men Type: BLOOD SPECIMENOrdering Facility: [facility] Address: [address] [place] [address] Performed By: #### 2 4323-8 ####[facility] LABCLIA [id number] [place] [address] CO2 [Moles/Vol] 25 mmol/L Normal 22-30 [facility] Comment on above: Order Comment: Speci men Type: BLOOD SPECIMENOrdering Facility: [facility] Address: [address] [place] [address] Performed By: #### 2 4323-8 ####[facility] LABCLIA [id number] [place] [address] Creatinine [Mass/Vol] 0.78 mg/dL Normal 0.73-1.22 [facility] Comment on above: Order Comment: Speci men Type: BLOOD SPECIMENOrdering Facility: [facility] Address: [address] [place] [address] Performed By: #### 2 4323-8 ####[facility] LABCLIA [id number] [place] [address] Creatinine and Glomerular filtration rate.predicted panel (S/P/Bld) 95 mL/min/1.73m??? Normal >=60 [facility] Comment on above: Order Comment: Speci men Type: BLOOD SPECIMENOrdering Facility: [facility] Address: [address] [place] [address] Result Comment: Kathy mated Glomerular Filtration Rate [...] actual GFR. Performed By: #### 2 4323-8 ####[facility] LABCLIA [id number] [place] [address] Glucose [Mass/Vol] 165 mg/dL High 74-99 [facility] Comment on above: Order Comment: Speci men Type: BLOOD SPECIMENOrdering Facility: [facility] Address: [address] [place] [address] Result Comment: The [employer] Diabetes Association (ADA) provides guidance for cutoff [...] Standards of Medical Care in Diabetes 2016, [employer] Diabetes Association. Diabetes Care. 2016.39(Suppl 1). Performed By: #### 2 4323-8 ####[facility] LABCLIA [id number] [place] [address] Potassium [Moles/Vol] 4.3 mmol/L Normal 3.7-5.1 [facility] Comment on above: Order Comment: Speci men Type: BLOOD SPECIMENOrdering Facility: [facility] Address: [address] [place] [address] Performed By: #### 2 4323-8 ####[facility] LABCLIA [id number] [place] [address] Protein [Mass/Vol] 6.9 g/dL Normal 6.3-8.0 [facility] Comment on above: Order Comment: Speci men Type: BLOOD SPECIMENOrdering Facility: [facility] Address: [address] [place], [place] [address] Performed By: #### 2 4323-8 ####[facility] LABCLIA [id number] [place] [address] Sodium [Moles/Vol] 137 mmol/L Normal 136-144 [facility] Comment on above: Order Comment: Speci men Type: BLOOD SPECIMENOrdering Facility: [facility] Address: [address] [place] [address] Performed By: #### 2 4323-8 ####[facility] LABCLIA [id number] [place] [address] Urea nitrogen [Mass/Vol] 18 mg/dL Normal 9-24 [facility] Comment on above: Order Comment: Speci men Type: BLOOD SPECIMENOrdering Facility: [facility] Address: [address] [place] [address] Performed By: #### 2 4323-8 ####[facility] LABCLIA [id number] [place] [address] CNPNon 06-06-2023 CNPN Normal [facility] CBC W Auto Differential pane l (Bld)on 05-24-2023 Basophils (Bld) [#/Vol] 10*3/uL Normal <0.11 [facility] Comment on above: Order Comment: Speci men Type: BLOOD SPECIMENOrdering Facility: [facility] Address: [address] [place] [address] Performed By: #### 5 7021-8 ####[facility] LABCLIA [id number] [place] [address] Basophils/100 WBC (Bld) 0.3 % Normal [facility] Comment on above: Order Comment: Speci men Type: BLOOD SPECIMENOrdering Facility: [facility] Address: [address] [place] [address] Performed By: #### 5 7021-8 ####[facility] LABCLIA [id number] [place] [address] Differential cell count method Nom (Bld) Auto Normal [facility] Comment on above: Order Comment: Speci men Type: BLOOD SPECIMENOrdering Facility: [facility] Address: [address] [place] [address] Performed By: #### 5 7021-8 ####[facility] LABCLIA [id number] [place] [address] Eosinophils (Bld) [#/Vol] 0.04 10*3/uL Normal <0.46 [facility] Comment on above: Order Comment: Speci men Type: BLOOD SPECIMENOrdering Facility: [facility] Address: [address] [place] [address] Performed By: #### 5 7021-8 ####[facility] LABCLIA [id number] [place] [address] Eosinophils/100 WBC (Bld) 0.5 % Normal [facility] Comment on above: Order Comment: Speci men Type: BLOOD SPECIMENOrdering Facility: [facility] Address: [address] [place] [address] Performed By: #### 5 7021-8 ####[facility] LABCLIA [id number] [place] [address] Erythrocyte distribution width (RBC) [Ratio] 19.4 % High 11.5-15.0 [facility] Comment on above: Order Comment: Speci men Type: BLOOD SPECIMENOrdering Facility: [facility] Address: [address] [place] [address] Performed By: #### 5 7021-8 ####[facility] LABCLIA [id number] [place] [address] Hematocrit (Bld) [Volume fraction] 33.0 % Low 39.0-51.0 [facility] Comment on above: Order Comment: Speci men Type: BLOOD SPECIMENOrdering Facility: [facility] Address: [address] [place] [address] Performed By: #### 5 7021-8 ####[facility] LABCLIA [id number] [place] [address] Hemoglobin (Bld) [Mass/Vol] 10.5 g/dL Low 13.0-17.0 [facility] Comment on above: Order Comment: Speci men Type: BLOOD SPECIMENOrdering Facility: [facility] Address: [address] [place] [address] Performed By: #### 5 7021-8 ####[facility] LABCLIA [id number] [place] [address] Immature granulocytes (Bld) [#/Vol] 0.03 10*3/uL Normal <0.10 [facility] Comment on above: Order Comment: Speci men Type: BLOOD SPECIMENOrdering Facility: [facility] Address: [address] [place] [address] Performed By: #### 5 7021-8 ####[facility] LABCLIA [id number] [place] [address] Immature granulocytes/100 WBC (Bld) 0.4 % Normal [facility] Comment on above: Order Comment: Speci men Type: BLOOD SPECIMENOrdering Facility: [facility] Address: [address] [place] [address] Performed By: #### 5 7021-8 ####[facility] LABCLIA [id number] [place] [address] Lymphocytes (Bld) [#/Vol] 1.47 10*3/uL Normal 1.00-4.00 [facility] Comment on above: Order Comment: Speci men Type: BLOOD SPECIMENOrdering Facility: [facility] Address: [address] [place] [address] Performed By: #### 5 7021-8 ####[facility] LABCLIA [id number] [place] [address] Lymphocytes/100 WBC (Bld) 19.8 % Normal [facility] Comment on above: Order Comment: Speci men Type: BLOOD SPECIMENOrdering Facility: [facility] Address: [address] [place] [address] Performed By: #### 5 7021-8 ####[facility] LABCLIA [id number] [place] [address] MCH (RBC) [Entitic mass] 32.5 pg Normal 26.0-34.0 [facility] Comment on above: Order Comment: Speci men Type: BLOOD SPECIMENOrdering Facility: [facility] Address: [address] [place] [address] Performed By: #### 5 7021-8 ####[facility] LABCLIA [id number] [place] [address] MCHC (RBC) [Mass/Vol] 31.8 g/dL Normal 30.5-36.0 [facility] Comment on above: Order Comment: Speci men Type: BLOOD SPECIMENOrdering Facility: [facility] Address: [address] [place] [address] Performed By: #### 5 7021-8 ####[facility] LABCLIA [id number] [place] [address] MCV (RBC) [Entitic vol] 102.2 fL High 80.0-100.0 [facility] Comment on above: Order Comment: Speci men Type: BLOOD SPECIMENOrdering Facility: [facility] Address: [address] [place] [address] Performed By: #### 5 7021-8 ####[facility] LABCLIA [id number] [place] [address] Monocytes (Bld) [#/Vol] 0.80 10*3/uL Normal <0.87 [facility] Comment on above: Order Comment: Speci men Type: BLOOD SPECIMENOrdering Facility: [facility] Address: [address] [place] [address] Performed By: #### 5 7021-8 ####[facility] LABCLIA [id number] [place] [address] Monocytes/100 WBC (Bld) 10.8 % Normal [facility] Comment on above: Order Comment: Speci men Type: BLOOD SPECIMENOrdering Facility: [facility] Address: [address] [place] [address] Performed By: #### 5 7021-8 ####[facility] LABCLIA [id number] [place] [address] Neutrophils (Bld) [#/Vol] 5.07 10*3/uL Normal 1.45-7.50 [facility] Comment on above: Order Comment: Speci men Type: BLOOD SPECIMENOrdering Facility: [facility] Address: [address] [place] [address] Performed By: #### 5 7021-8 ####[facility] LABCLIA [id number] [place] [address] Neutrophils/100 WBC (Bld) 68.2 % Normal [facility] Comment on above: Order Comment: Speci men Type: BLOOD SPECIMENOrdering Facility: [facility] Address: [address] [place] [address] Performed By: #### 5 7021-8 ####[facility] LABCLIA [id number] [place] [address] Nucleated RBC (Bld) [#/Vol] 10*3/uL Normal <0.01 [facility] Comment on above: Order Comment: Speci men Type: BLOOD SPECIMENOrdering Facility: [facility] Address: [address] [place] [address] Performed By: #### 5 7021-8 ####[facility] LABCLIA [id number] [place] [address] Nucleated RBC/100 WBC (Bld) [Ratio] 0.0 /100 WBC Normal [facility] Comment on above: Order Comment: Speci men Type: BLOOD SPECIMENOrdering Facility: [facility] Address: [address] [place] [address] Performed By: #### 5 7021-8 ####[facility] LABCLIA [id number] [place] [address] Platelet mean volume (Bld) [Entitic vol] 9.9 fL Normal 9.0-12.7 [facility] Comment on above: Order Comment: Speci men Type: BLOOD SPECIMENOrdering Facility: [facility] Address: [address] [place] [address] Performed By: #### 5 7021-8 ####[facility] LABCLIA [id number] [place] [address] Platelets (Bld) [#/Vol] 222 10*3/uL Normal 150-400 [facility] Comment on above: Order Comment: Speci men Type: BLOOD SPECIMENOrdering Facility: [facility] Address: [address] [place] [address] Performed By: #### 5 7021-8 ####[facility] LABCLIA [id number] [place] [address] RBC (Bld) [#/Vol] 3.23 10*6/uL Low 4.20-6.00 [facility] Comment on above: Order Comment: Speci men Type: BLOOD SPECIMENOrdering Facility: [facility] Address: [address] [place] [address] Performed By: #### 5 7021-8 ####[facility] LABIA [id number] [place] [address] WBC (Bld) [#/Vol] 7.43 10*3/uL Normal 3.70-11.00 [facility] Comment on above: Order Comment: Speci men Type: BLOOD SPECIMENOrdering Facility: [facility] Address: [address] [place] [address] Performed By: #### 5 7021-8 ####[facility] LABIA [id number] [place] [address] CNOVSPon 05-24-2023 CNOVSP Normal [facility] Cancer Ag19-9 SerPl-aCncon 0 05-24-2023 Cancer Ag 19-9 Qn 1757.0 [arb'U]/mL High <36.0 [facility] Comment on above: Order Comment: Speci men Type: BLOOD SPECIMENOrdering Facility: [facility] Address: [address] [place] [address] Result Comment: Can er antigen 19-9 test [...] used interchangeably. Performed By: #### 2 4108-3 ####[facility] LABCLIA [id number] [facility] [place] [address] [place] Comprehensive metabolic 2000 panelon 05-24-2023 Albumin [Mass/Vol] 4.3 g/dL Normal 3.9-4.9 [facility] Comment on above: Order Comment: Speci men Type: BLOOD SPECIMENOrdering Facility: [facility] Address: [address] [place] [address] Performed By: #### 2 4323-8 ####[facility] LABCLIA [id number] [place] [address] ALP [Catalytic activity/Vol] 127 U/L High 38-113 [facility] Comment on above: Order Comment: Speci men Type: BLOOD SPECIMENOrdering Facility: [facility] Address: [address] [place] [address] Performed By: #### 2 4323-8 ####[facility] LABCLIA [id number] [place] [address] ALT [Catalytic activity/Vol] 22 U/L Normal 10-54 [facility] Comment on above: Order Comment: Speci men Type: BLOOD SPECIMENOrdering Facility: [facility] Address: [address] [place] [address] Performed By: #### 2 4323-8 ####[facility] LABCLIA [id number] [place] [address] Anion gap [Moles/Vol] 9 mmol/L Normal 9-18 [facility] Comment on above: Order Comment: Speci men Type: BLOOD SPECIMENOrdering Facility: [facility] Address: [address] [place] [address] Performed By: #### 2 4323-8 ####[facility] LABCLIA [id number] [place] [address] AST [Catalytic activity/Vol] 20 U/L Normal 14-40 [facility] Comment on above: Order Comment: Speci men Type: BLOOD SPECIMENOrdering Facility: [facility] Address: [address] [place] [address] Performed By: #### 2 4323-8 ####[facility] LABCLIA [id number] [place] [address] Bilirubin [Mass/Vol] 1.3 mg/dL Normal 0.2-1.3 [facility] Comment on above: Order Comment: Speci men Type: BLOOD SPECIMENOrdering Facility: [facility] Address: [address] [place] [address] Performed By: #### 2 4323-8 ####[facility] LABCLIA [id number] [place] [address] Calcium [Mass/Vol] 10.8 mg/dL High 8.5-10.2 [facility] Comment on above: Order Comment: Speci men Type: BLOOD SPECIMENOrdering Facility: [facility] Address: [address] [place] [address] Performed By: #### 2 4323-8 ####[facility] LABCLIA [id number] [place] [address] Chloride [Moles/Vol] 101 mmol/L Normal 97-105 [facility] Comment on above: Order Comment: Speci men Type: BLOOD SPECIMENOrdering Facility: [facility] Address: [address] [place] [address] Performed By: #### 2 4323-8 ####[facility] LABCLIA [id number] [place] [address] CO2 [Moles/Vol] 25 mmol/L Normal 22-30 [facility] Comment on above: Order Comment: Speci men Type: BLOOD SPECIMENOrdering Facility: [facility] Address: [address] [place] [address] Performed By: #### 2 4323-8 ####[facility] LABCLIA [id number] [place] [address] Creatinine [Mass/Vol] 0.84 mg/dL Normal 0.73-1.22 [facility] Comment on above: Order Comment: Speci men Type: BLOOD SPECIMENOrdering Facility: [facility] Address: [address] [place] [address] Performed By: #### 2 4323-8 ####[facility] LABCLIA [id number] [place] [address] Creatinine and Glomerular filtration rate.predicted panel (S/P/Bld) 93 mL/min/1.73m??? Normal >=60 [facility] Comment on above: Order Comment: Speci men Type: BLOOD SPECIMENOrdering Facility: [facility] Address: [address] [place] [address] Result Comment: Kathy mated Glomerular Filtration Rate [...] actual GFR. Performed By: #### 2 4323-8 ####[facility] LABCLIA [id number] [place] [address] Glucose [Mass/Vol] 129 mg/dL High 74-99 [facility] Comment on above: Order Comment: Speci men Type: BLOOD SPECIMENOrdering Facility: [facility] Address: [address] [place] [address] Result Comment: The [employer] Diabetes Association (ADA) provides guidance for cutoff [...] Standards of Medical Care in Diabetes 2016, [employer] Diabetes [employer]. Diabetes Care. 2016.39(Suppl 1). Performed By: #### 2 4323-8 ####[facility] LABCLIA [id number] [place] [address] Potassium [Moles/Vol] 4.0 mmol/L Normal 3.7-5.1 [facility] Comment on above: Order Comment: Speci men Type: BLOOD SPECIMENOrdering Facility: [facility] Address: [address] [place] [address] Performed By: #### 2 4323-8 ####[facility] LABCLIA [id number] [place] [address] Protein [Mass/Vol] 7.2 g/dL Normal 6.3-8.0 [facility] Comment on above: Order Comment: Speci men Type: BLOOD SPECIMENOrdering Facility: [facility] Address: [address] [place] [address] Performed By: #### 2 4323-8 ####[facility] LABCLIA [id number] [place] [address] Sodium [Moles/Vol] 135 mmol/L Low 136-144 [facility] Comment on above: Order Comment: Speci men Type: BLOOD SPECIMENOrdering Facility: [facility] Address: [address] [place] [address] Performed By: #### 2 4323-8 ####[facility] LABCLIA [id number] [place] [address] Urea nitrogen [Mass/Vol] 20 mg/dL Normal 9-24 [facility] Comment on above: Order Comment: Speci men Type: BLOOD SPECIMENOrdering Facility: [facility] Address: [address] [place] [address] Performed By: #### 2 4323-8 ####[facility] LABCLIA [id number] [place] [address] CREATININE BLDon 05-18-2023 Creatinine [Mass/Vol] 0.80 mg/dL Normal 0.73-1.22 [facility] Comment on above: Order Comment: Speci men Type: BLOOD SPECIMENOrdering Facility: [facility] Address: [address] [place] [address] Performed By: #### C RET1 ####[facility] LABCLIA [id number] [place] [address] Creatinine and Glomerular filtration rate.predicted panel (S/P/Bld) 94 mL/min/1.73m??? Normal >=60 [facility] Comment on above: Order Comment: Speci men Type: BLOOD SPECIMENOrdering Facility: [facility] Address: [address] [place] [address] Result Comment: Kathy mated Glomerular Filtration Rate [...] actual GFR. Performed By: #### C RET1 ####[facility] LABCLIA [id number] [place] [address] CT ABD/PEL W IVCONon 023 CT ABD/PEL W IVCON Normal [facility] CT Abdomen and Pelvis W cont rast [...] any questions regarding this interpretation, please call [phone]. If you are unable to reach us at the number above, please feel free to contact [facility] at [phone]. DIVISION OF RADIOLOGY * * *Final Report* * * DATE OF EXAM: May 18 2023 11:17AM [facility] 0530 - CT ABD/PEL W IVCON / [...] when it measured 4.9 x 3.4 cm. [employer] Mesentery/Peritoneum: Soft tissue implant anterior to the [...] chest CT performed will be reported separately. 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 DIVISION OF RADIOLOGY Provider, [facility] - 05/18/2023 * * *Final Report* * * DATE OF EXAM: May 18 2023 11:17AM [facility] 0530 - CT ABD/PEL W IVCON / [...] when it measured 4.9 x 3.4 cm. [employer] Mesentery/Peritoneum: Soft tissue implant anterior to the [...] chest CT performed will be reported separately. 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 IMPRESSION IMPRESSION: [...] any questions regarding this interpretation, please call [phone]. If you are unable to reach us at the number above, please feel free to contact [facility] at [phone]. [facility] CT CHEST W IVCONon 3 CT CHEST W IVCON Normal [facility] CT Chest W contrast [place] IMPRESSION: 1. [...] any questions regarding this interpretation, please call [phone]. If you are unable to reach us at the number above, please feel free to contact [facility] at [phone]. DIVISION OF RADIOLOGY * * *Final Report* * * DATE OF EXAM: May 18 2023 11:17AM [facility] 0539 - CT CHEST W IVCON / [...] was performed and will be reported separately. 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 DIVISION OF RADIOLOGY Provider, Helga Araceli [facility] - 05/18/2023 * * *Final Report* * * DATE OF EXAM: May 18 2023 11:17AM [facility] 0539 - CT CHEST W IVCON / [...] was performed and will be reported separately. 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 IMPRESSION IMPRESSION: [...] any questions regarding this interpretation, please call [phone]. If you are unable to reach us at the number above, please feel free to contact [facility] at [phone]. [facility] CT Chest W contrast IVOrdere d By: Ccf Provider on 05-18-2023 [facility] Laboratory - Chemistry and C hemistry - challengeOrdered By: Elizabeth Yu on 05-18-2023 Creatinine [Mass/Vol] 0.80 mg/dL 0.73 - 1.22 mg/dL [facility] GFR/1.73 sq M.predicted among non-blacks MDRD (S/P/Bld) [Vol rate/Area] 94 mL/min/{1.73_m2} - PINF [facility] Comment on above: Estimated Glomerular [...] Interpretation and review of laboratory results Normal [facility] No Panel Informationon 05-18 Radiology Study observation (narrative) [facility] CBC W Auto Differential pane l (Bld)on 05-12-2023 Basophils (Bld) [#/Vol] 0.03 10*3/uL Normal <0.11 [facility] Comment on above: Order Comment: Speci men Type: BLOOD SPECIMENOrdering Facility: [facility] Address: [address] [place] [address] Performed By: #### 5 7021-8 ####[facility] LABCLIA [id number] [place] [address] Basophils/100 WBC (Bld) 0.5 % Normal [facility] Comment on above: Order Comment: Speci men Type: BLOOD SPECIMENOrdering Facility: [facility] Address: [address] [place] [address] Performed By: #### 5 7021-8 ####[facility] LABCLIA [id number] [place] [address] Differential cell count method Nom (Bld) Auto Normal [facility] Comment on above: Order Comment: Speci men Type: BLOOD SPECIMENOrdering Facility: [facility] Address: [address] [place] [address] Performed By: #### 5 7021-8 ####[facility] LABCLIA [id number] [place] [address] Eosinophils (Bld) [#/Vol] 10*3/uL Normal <0.46 [facility] Comment on above: Order Comment: Speci men Type: BLOOD SPECIMENOrdering Facility: [facility] Address: [address] [place] [address] Performed By: #### 5 7021-8 ####[facility] LABCLIA [id number] [place] [address] Eosinophils/100 WBC (Bld) 0.4 % Normal [facility] Comment on above: Order Comment: Speci men Type: BLOOD SPECIMENOrdering Facility: [facility] Address: [address] [place] [address] Performed By: #### 5 7021-8 ####[facility] LABCLIA [id number] [place] [address] Erythrocyte distribution width (RBC) [Ratio] 17.2 % High 11.5-15.0 [facility] Comment on above: Order Comment: Speci men Type: BLOOD SPECIMENOrdering Facility: [facility] Address: [address] [place] [address] Performed By: #### 5 7021-8 ####[facility] LABCLIA [id number] [place] [address] Hematocrit (Bld) [Volume fraction] 29.8 % Low 39.0-51.0 [facility] Comment on above: Order Comment: Speci men Type: BLOOD SPECIMENOrdering Facility: [facility] Address: [address] [place] [address] Performed By: #### 5 7021-8 ####[facility] LABCLIA [id number] [place] [address] Hemoglobin (Bld) [Mass/Vol] 9.8 g/dL Low 13.0-17.0 [facility] Comment on above: Order Comment: Speci men Type: BLOOD SPECIMENOrdering Facility: [facility] Address: [address] [place] [address] Performed By: #### 5 7021-8 ####[facility] LABCLIA [id number] [place] [address] Immature granulocytes (Bld) [#/Vol] 10*3/uL Normal <0.10 [facility] Comment on above: Order Comment: Speci men Type: BLOOD SPECIMENOrdering Facility: [facility] Address: [address] [place] [address] Performed By: #### 5 7021-8 ####[facility] LABCLIA [id number] [place] [address] Immature granulocytes/100 WBC (Bld) 0.4 % Normal [facility] Comment on above: Order Comment: Speci men Type: BLOOD SPECIMENOrdering Facility: [facility] Address: [address] [place] [address] Performed By: #### 5 7021-8 ####[facility] LABCLIA [id number] [place] [address] Lymphocytes (Bld) [#/Vol] 1.83 10*3/uL Normal 1.00-4.00 [facility] Comment on above: Order Comment: Speci men Type: BLOOD SPECIMENOrdering Facility: [facility] Address: [address] [place] [address] Performed By: #### 5 7021-8 ####[facility] LABCLIA [id number] [place] [address] Lymphocytes/100 WBC (Bld) 33.0 % Normal [facility] Comment on above: Order Comment: Speci men Type: BLOOD SPECIMENOrdering Facility: [facility] Address: [address] [place] [address] Performed By: #### 5 7021-8 ####[facility] LABCLIA [id number] [place] [address] MCH (RBC) [Entitic mass] 31.5 pg Normal 26.0-34.0 [facility] Comment on above: Order Comment: Speci men Type: BLOOD SPECIMENOrdering Facility: [facility] Address: [address] [place] [address] Performed By: #### 5 7021-8 ####[facility] LABCLIA [id number] [place] [address] MCHC (RBC) [Mass/Vol] 32.9 g/dL Normal 30.5-36.0 [facility] Comment on above: Order Comment: Speci men Type: BLOOD SPECIMENOrdering Facility: [facility] Address: [address] [place] [address] Performed By: #### 5 7021-8 ####[facility] LABCLIA [id number] [place] [address] MCV (RBC) [Entitic vol] 95.8 fL Normal 80.0-100.0 [facility] Comment on above: Order Comment: Speci men Type: BLOOD SPECIMENOrdering Facility: [facility] Address: [address] [place] [address] Performed By: #### 5 7021-8 ####[facility] LABCLIA [id number] [place] [address] Monocytes (Bld) [#/Vol] 0.40 10*3/uL Normal <0.87 [facility] Comment on above: Order Comment: Speci men Type: BLOOD SPECIMENOrdering Facility: [facility] Address: [address] [place] [address] Performed By: #### 5 7021-8 ####[facility] LABCLIA [id number] [place] [address] Monocytes/100 WBC (Bld) 7.2 % Normal [facility] Comment on above: Order Comment: Speci men Type: BLOOD SPECIMENOrdering Facility: [facility] Address: [address] [place] [address] Performed By: #### 5 7021-8 ####[facility] LABCLIA [id number] [place] [address] Neutrophils (Bld) [#/Vol] 3.24 10*3/uL Normal 1.45-7.50 [facility] Comment on above: Order Comment: Speci men Type: BLOOD SPECIMENOrdering Facility: [facility] Address: [address] [place] [address] Performed By: #### 5 7021-8 ####[facility] LABCLIA [id number] [place] [address] Neutrophils/100 WBC (Bld) 58.5 % Normal [facility] Comment on above: Order Comment: Speci men Type: BLOOD SPECIMENOrdering Facility: [facility] Address: [address] [place] [address] Performed By: #### 5 7021-8 ####[facility] LABCLIA [id number] [place] [address] Nucleated RBC (Bld) [#/Vol] 10*3/uL Normal <0.01 [facility] Comment on above: Order Comment: Speci men Type: BLOOD SPECIMENOrdering Facility: [facility] Address: [address] [place] [address] Performed By: #### 5 7021-8 ####[facility] LABCLIA [id number] [place] [address] Nucleated RBC/100 WBC (Bld) [Ratio] 0.0 /100 WBC Normal [facility] Comment on above: Order Comment: Speci men Type: BLOOD SPECIMENOrdering Facility: [facility] Address: [address] [place] [address] Performed By: #### 5 7021-8 ####[facility] LABCLIA [id number] [place] [address] Platelet mean volume (Bld) [Entitic vol] 10.2 fL Normal 9.0-12.7 [facility] Comment on above: Order Comment: Speci men Type: BLOOD SPECIMENOrdering Facility: [facility] Address: [address] [place] [address] Performed By: #### 5 7021-8 ####[facility] LABCLIA [id number] [place] [address] Platelets (Bld) [#/Vol] 186 10*3/uL Normal 150-400 [facility] Comment on above: Order Comment: Speci men Type: BLOOD SPECIMENOrdering Facility: [facility] Address: [address] [place] [address] Performed By: #### 5 7021-8 ####[facility] LABCLIA [id number] [place] [address] RBC (Bld) [#/Vol] 3.11 10*6/uL Low 4.20-6.00 [facility] Comment on above: Order Comment: Speci men Type: BLOOD SPECIMENOrdering Facility: [facility] Address: [address] [place] [address] Performed By: #### 5 7021-8 ####[facility] LABCLIA [id number] [place] [address] WBC (Bld) [#/Vol] 5.54 10*3/uL Normal 3.70-11.00 [facility] Comment on above: Order Comment: Speci men Type: BLOOD SPECIMENOrdering Facility: [facility] Address: [address] [place] [address] Performed By: #### 5 7021-8 ####[facility] LABCLIA [id number] [place] [address] CNOVSPon 05-12-2023 CNOVSP Normal [facility] metabolic 2000 panelon 05-12-2023 Albumin [Mass/Vol] 4.1 g/dL Normal 3.9-4.9 [facility] Comment on above: Order Comment: Speci men Type: BLOOD SPECIMENOrdering Facility: [facility] Address: [address] [place] [address] Performed By: #### 2 4323-8 ####[facility] LABCLIA [id number] [place] [address] ALP [Catalytic activity/Vol] 116 U/L High 38-113 [facility] Comment on above: Order Comment: Speci men Type: BLOOD SPECIMENOrdering Facility: [facility] Address: [address] [place] [address] Performed By: #### 2 4323-8 ####[facility] LABCLIA [id number] [place] [address] ALT [Catalytic activity/Vol] 32 U/L Normal 10-54 [facility] Comment on above: Order Comment: Speci men Type: BLOOD SPECIMENOrdering Facility: [facility] Address: [address] [place] [address] Performed By: #### 2 4323-8 ####[facility] LABCLIA [id number] [place] [address] Anion gap [Moles/Vol] 8 mmol/L Low 9-18 [facility] Comment on above: Order Comment: Speci men Type: BLOOD SPECIMENOrdering Facility: [facility] Address: [address] [place] [address] Performed By: #### 2 4323-8 ####[facility] LABCLIA [id number] [place] [address] AST [Catalytic activity/Vol] 24 U/L Normal 14-40 [facility] Comment on above: Order Comment: Speci men Type: BLOOD SPECIMENOrdering Facility: [facility] Address: [address] [place] [address] Performed By: #### 2 4323-8 ####[facility] LABCLIA [id number] [place] [address] Bilirubin [Mass/Vol] 1.2 mg/dL Normal 0.2-1.3 [facility] Comment on above: Order Comment: Speci men Type: BLOOD SPECIMENOrdering Facility: [facility] Address: [address] [place] [address] Performed By: #### 2 4323-8 ####[facility] LABCLIA [id number] [place] [address] Calcium [Mass/Vol] 10.9 mg/dL High 8.5-10.2 [facility] Comment on above: Order Comment: Speci men Type: BLOOD SPECIMENOrdering Facility: [facility] Address: [address] [place] [address] Performed By: #### 2 4323-8 ####[facility] LABCLIA [id number] [place] [address] Chloride [Moles/Vol] 104 mmol/L Normal 97-105 [facility] Comment on above: Order Comment: Speci men Type: BLOOD SPECIMENOrdering Facility: [facility] Address: [address] [place] [address] Performed By: #### 2 4323-8 ####[facility] LABCLIA [id number] [place] [address] CO2 [Moles/Vol] 26 mmol/L Normal 22-30 [facility] Comment on above: Order Comment: Speci men Type: BLOOD SPECIMENOrdering Facility: [facility] Address: [address] [place] [id number] Performed By: #### 2 4323-8 ####[facility] LABCLIA [id number] [place] [address] Creatinine [Mass/Vol] 0.75 mg/dL Normal 0.73-1.22 [facility] Comment on above: Order Comment: Speci men Type: BLOOD SPECIMENOrdering Facility: [facility] Address: [address] [place] [address] Performed By: #### 2 4323-8 ####[facility] LABCLIA [id number] [place] [address] Creatinine and Glomerular filtration rate.predicted panel (S/P/Bld) 96 mL/min/1.73m??? Normal >=60 [facility] Comment on above: Order Comment: Speci men Type: BLOOD SPECIMENOrdering Facility: [facility] Address: [address] [place] [address] Result Comment: Kathy mated Glomerular Filtration Rate [...] actual GFR. Performed By: #### 2 4323-8 ####[facility] LABCLIA [id number] [place] [address] Glucose [Mass/Vol] 152 mg/dL High 74-99 [facility] Comment on above: Order Comment: Speci men Type: BLOOD SPECIMENOrdering Facility: [facility] Address: [address] [place] [address] Result Comment: The [employer] (ADA) provides guidance for cutoff [...] Standards of Medical Care in Diabetes 2016, [employer]. Diabetes Care. 2016.39(Suppl 1). Performed By: #### 2 4323-8 ####[facility] LABCLIA [id number] [place] [address] Potassium [Moles/Vol] 4.1 mmol/L Normal 3.7-5.1 [facility] Comment on above: Order Comment: Speci men Type: BLOOD SPECIMENOrdering Facility: [facility] Address: [address] [place] [address] Performed By: #### 2 4323-8 ####[facility] LABCLIA [id number] [place] [address] Protein [Mass/Vol] 7.1 g/dL Normal 6.3-8.0 [facility] Comment on above: Order Comment: Speci men Type: BLOOD SPECIMENOrdering Facility: [facility] Address: [address] [place] [address] Performed By: #### 2 4323-8 ####[facility] LABCLIA [id number] [place] [address] Sodium [Moles/Vol] 138 mmol/L Normal 136-144 [facility] Comment on above: Order Comment: Speci men Type: BLOOD SPECIMENOrdering Facility: [facility] Address: [address] [place] [address] Performed By: #### 2 4323-8 ####[facility] LABCLIA [id number] [place] [address] Urea nitrogen [Mass/Vol] 16 mg/dL Normal 9-24 [facility] Comment on above: Order Comment: Speci men Type: BLOOD SPECIMENOrdering Facility: [facility] Address: [place] [address] Performed By: #### 2 4323-8 ####[facility] LABCLIA [id number] [place] [address] CNPNon 05-08-2023 CNPN Normal [facility] CBC W Auto Differential pane l (Bld)on 05-05-2023 Basophils (Bld) [#/Vol] 0.05 10*3/uL <0.11 k/uL [facility] Basophils/100 WBC (Bld) 0.3 % [facility] Differential cell count method Nom (Bld) Auto [facility] Eosinophils (Bld) [#/Vol] 0.04 10*3/uL <0.46 k/uL [facility] Eosinophils/100 WBC (Bld) 0.3 % [facility] Erythrocyte distribution width (RBC) [Ratio] 17.2 % High 11.5 - 15.0 % [facility] Hematocrit (Bld) [Volume fraction] 36.8 % Low 39.0 - 51.0 % [facility] Hemoglobin (Bld) [Mass/Vol] 12.0 g/dL Low 13.0 - 17.0 g/dL [facility] Immature granulocytes (Bld) [#/Vol] 0.07 10*3/uL <0.10 k/uL [facility] Immature granulocytes/100 WBC (Bld) 0.5 % [facility] Lymphocytes (Bld) [#/Vol] 2.10 10*3/uL 1.00 - 4.00 k/uL [facility] Lymphocytes/100 WBC (Bld) 14.4 % [facility] MCH (RBC) [Entitic mass] 31.4 pg 26.0 - 34.0 pg [facility] MCHC (RBC) [Mass/Vol] 32.6 g/dL 30.5 - 36.0 g/dL [facility] MCV (RBC) [Entitic vol] 96.3 fL 80.0 - 100.0 fL [facility] Monocytes (Bld) [#/Vol] 1.12 10*3/uL High <0.87 k/uL [facility] Monocytes/100 WBC (Bld) 7.7 % [facility] Neutrophils (Bld) [#/Vol] 11.22 10*3/uL High 1.45 - 7.50 k/uL [facility] Neutrophils/100 WBC (Bld) 76.8 % [facility] Nucleated RBC (Bld) [#/Vol] <0.01 k/uL [facility] Nucleated RBC/100 WBC (Bld) [Ratio] 0.0 /100 WBC [facility] Platelet mean volume (Bld) [Entitic vol] 10.2 fL 9.0 - 12.7 fL [facility] Platelets (Bld) [#/Vol] 376 10*3/uL 150 - 400 k/uL [facility] RBC (Bld) [#/Vol] 3.82 10*6/uL Low 4.20 - 6.0 0 m/uL [facility] WBC (Bld) [#/Vol] 14.60 10*3/uL High 3.70 - 11.00 k/uL [facility] Basophils (Bld) [#/Vol] 0.05 10*3/uL Normal <0.11 [facility] Comment on above: Order Comment: Speci men Type: BLOOD SPECIMENOrdering Facility: [facility] Address: [address] [place] [address] Performed By: #### 5 7021-8 ####[facility] LABIA [id number] [place] [address] Basophils/100 WBC (Bld) 0.3 % Normal [facility] Comment on above: Order Comment: Speci men Type: BLOOD SPECIMENOrdering Facility: [facility] Address: [address] [place] [address] Performed By: #### 5 7021-8 ####[facility] LABCLIA [id number] [place] [address] Differential cell count method Nom (Bld) Auto Normal [facility] Comment on above: Order Comment: Speci men Type: BLOOD SPECIMENOrdering Facility: [facility] Address: [address] [place] [address] Performed By: #### 5 7021-8 ####[facility] LABCLIA [id number] [place] [address] Eosinophils (Bld) [#/Vol] 0.04 10*3/uL Normal <0.46 [facility] Comment on above: Order Comment: Speci men Type: BLOOD SPECIMENOrdering Facility: [facility] Address: [address] [place] [address] Performed By: #### 5 7021-8 ####[facility] LABCLIA [id number] [place] [address] Eosinophils/100 WBC (Bld) 0.3 % Normal [facility] Comment on above: Order Comment: Speci men Type: BLOOD SPECIMENOrdering Facility: [facility] Address: [address] [place] [address] Performed By: #### 5 7021-8 ####[facility] LABCLIA [id number] [place] [address] Erythrocyte distribution width (RBC) [Ratio] 17.2 % High 11.5-15.0 [facility] Comment on above: Order Comment: Speci men Type: BLOOD SPECIMENOrdering Facility: [facility] Address: [address] [place] [address] Performed By: #### 5 7021-8 ####[facility] LABCLIA [id number] [place] [address] Hematocrit (Bld) [Volume fraction] 36.8 % Low 39.0-51.0 [facility] Comment on above: Order Comment: Speci men Type: BLOOD SPECIMENOrdering Facility: [facility] Address: [address] [place] [address] Performed By: #### 5 7021-8 ####[facility] LABCLIA [id number] [place] [address] Hemoglobin (Bld) [Mass/Vol] 12.0 g/dL Low 13.0-17.0 [facility] Comment on above: Order Comment: Speci men Type: BLOOD SPECIMENOrdering Facility: [facility] Address: [address] [place] [address] Performed By: #### 5 7021-8 ####[facility] LABCLIA [id number] [place] [address] Immature granulocytes (Bld) [#/Vol] 0.07 10*3/uL Normal <0.10 [facility] Comment on above: Order Comment: Speci men Type: BLOOD SPECIMENOrdering Facility: [facility] Address: [address] [place] [address] Performed By: #### 5 7021-8 ####[facility] LABCLIA [id number] [place] [address] Immature granulocytes/100 WBC (Bld) 0.5 % Normal [facility] Comment on above: Order Comment: Speci men Type: BLOOD SPECIMENOrdering Facility: [facility] Address: [address] [place] [address] Performed By: #### 5 7021-8 ####[facility] LABCLIA [id number] [place] [address] Lymphocytes (Bld) [#/Vol] 2.10 10*3/uL Normal 1.00-4.00 [facility] Comment on above: Order Comment: Speci men Type: BLOOD SPECIMENOrdering Facility: [facility] Address: [address] [place] [address] Performed By: #### 5 7021-8 ####[facility] LABCLIA [id number] [place] [address] Lymphocytes/100 WBC (Bld) 14.4 % Normal [facility] Comment on above: Order Comment: Speci men Type: BLOOD SPECIMENOrdering Facility: [facility] Address: [address] [place] [address] Performed By: #### 5 7021-8 ####[facility] LABCLIA [id number] [place] [address] MCH (RBC) [Entitic mass] 31.4 pg Normal 26.0-34.0 [facility] Comment on above: Order Comment: Speci men Type: BLOOD SPECIMENOrdering Facility: [facility] Address: [address] [place] [address] Performed By: #### 5 7021-8 ####[facility] LABCLIA [id number] [place] [address] MCHC (RBC) [Mass/Vol] 32.6 g/dL Normal 30.5-36.0 [facility] Comment on above: Order Comment: Speci men Type: BLOOD SPECIMENOrdering Facility: [facility] Address: [address] [place] [address] Performed By: #### 5 7021-8 ####[facility] LABIA [id number] [place] [address] MCV (RBC) [Entitic vol] 96.3 fL Normal 80.0-100.0 [facility] Comment on above: Order Comment: Speci men Type: BLOOD SPECIMENOrdering Facility: [facility] Address: [address] [place] [address] Performed By: #### 5 7021-8 ####[facility] LABIA [id number] [place] [address] Monocytes (Bld) [#/Vol] 1.12 10*3/uL High <0.87 [facility] Comment on above: Order Comment: Speci men Type: BLOOD SPECIMENOrdering Facility: [facility] Address: [address] [place] [address] Performed By: #### 5 7021-8 ####[facility] LABIA [id number] [place] [address] Monocytes/100 WBC (Bld) 7.7 % Normal [facility] Comment on above: Order Comment: Speci men Type: BLOOD SPECIMENOrdering Facility: [facility] Address: [address] [place] [address] Performed By: #### 5 7021-8 ####[facility] LABCLIA [id number] [place] [address] Neutrophils (Bld) [#/Vol] 11.22 10*3/uL High 1.45-7.50 [facility] Comment on above: Order Comment: Speci men Type: BLOOD SPECIMENOrdering Facility: [facility] Address: [address] [place] [address] Performed By: #### 5 7021-8 ####[facility] LABCLIA [id number] [place] [address] Neutrophils/100 WBC (Bld) 76.8 % Normal [facility] Comment on above: Order Comment: Speci men Type: BLOOD SPECIMENOrdering Facility: [facility] Address: [address] [place] [address] Performed By: #### 5 7021-8 ####[facility] LABIA [id number] [place] [address] Nucleated RBC (Bld) [#/Vol] 10*3/uL Normal <0.01 [facility] Comment on above: Order Comment: Speci men Type: BLOOD SPECIMENOrdering Facility: [facility] Address: [address] [place] [address] Performed By: #### 5 7021-8 ####[facility] LABCLIA [id number] [place] [address] Nucleated RBC/100 WBC (Bld) [Ratio] 0.0 /100 WBC Normal [facility] Comment on above: Order Comment: Speci men Type: BLOOD SPECIMENOrdering Facility: [facility] Address: [address] [place] [address] Performed By: #### 5 7021-8 ####[facility] LABIA [id number] [place] [address] Platelet mean volume (Bld) [Entitic vol] 10.2 fL Normal 9.0-12.7 [facility] Comment on above: Order Comment: Speci men Type: BLOOD SPECIMENOrdering Facility: [facility] Address: [address] [place] [address] Performed By: #### 5 7021-8 ####[facility] LABCLIA [id number] [place] [address] Platelets (Bld) [#/Vol] 376 10*3/uL Normal 150-400 [facility] Comment on above: Order Comment: Speci men Type: BLOOD SPECIMENOrdering Facility: [facility] Address: [address] [place] [address] Performed By: #### 5 7021-8 ####[facility] LABCLIA [id number] [place] [address] RBC (Bld) [#/Vol] 3.82 10*6/uL Low 4.20-6.00 [facility] Comment on above: Order Comment: Speci men Type: BLOOD SPECIMENOrdering Facility: [facility] Address: [address] [place] [address] Performed By: #### 5 7021-8 ####[facility] LABIA [id number] [place] [address] WBC (Bld) [#/Vol] 14.60 10*3/uL High 3.70-11.00 [facility] Comment on above: Order Comment: Speci men Type: BLOOD SPECIMENOrdering Facility: [facility] Address: [address] [place] [address] Performed By: #### 5 7021-8 ####[facility] LABIA [id number] [place] [address] CNOVSPon 05-05-2023 CNOVSP Normal [facility] Cancer Ag19-9 SerPl-aCncon 1 07-06-2022 Cancer Ag 19-9 Qn 2059.0 [arb'U]/mL High <36.0 [facility] Comment on above: Order Comment: Speci men Type: BLOOD SPECIMENOrdering Facility: [facility] Address: [address] [place] [address] Result Comment: [facility] er antigen 19-9 test is used as an aid in monitoring response to treatment or recurrence in patients with established pancreatic, hepatobiliary, or gastrointestinal malignancies. Clinical correlation is required.The CA 19-9 Antigen test was performed using the [employer] DXI paramagnetic particle chemiluminescent immunoassay method. Results obtained with different assay methods or kits cannot be used interchangeably. Performed By: #### 2 4108-3 ####[facility] LABCLIA [id number] [place] [address] [facility] Comprehensive metabolic 2000 panelon 05-05-2023 Albumin [Mass/Vol] 4.3 g/dL 3.9 - 4.9 g/dL [facility] ALP [Catalytic activity/Vol] 131 U/L High 38 - 113 U/L [facility] ALT [Catalytic activity/Vol] 26 U/L 10 - 54 U/L [facility] Anion gap [Moles/Vol] 10 mmol/L 9 - 18 mmol/L [facility] AST [Catalytic activity/Vol] 28 U/L 14 - 40 U/L [facility] Bilirubin [Mass/Vol] 1.3 mg/dL 0.2 - 1 .3 mg/dL [facility] Calcium [Mass/Vol] 11.1 mg/dL High 8.5 - 10. 2 mg/dL [facility] Chloride [Moles/Vol] 101 mmol/L 97 - 10 5 mmol/L [facility] CO2 [Moles/Vol] 24 mmol/L 22 - 30 mmol/L [facility] Creatinine [Mass/Vol] 0.87 mg/dL 0.73 - 1.22 mg/dL [facility] Estimated Glomerular Filtration Rate 92 mL/min/1.73m >=60 mL/min/1.73 m [facility] Glucose [Mass/Vol] 154 mg/dL High 74 - 99 mg/dL [facility] Potassium [Moles/Vol] 4.3 mmol/L 3.7 - 5.1 mmol/L [facility] Protein [Mass/Vol] 7.5 g/dL 6.3 - 8.0 g/dL [facility] Sodium [Moles/Vol] 135 mmol/L Low 136 - 144 mmol/L [facility] Urea nitrogen [Mass/Vol] 19 mg/dL 9 - 24 mg/dL [facility] Albumin [Mass/Vol] 4.3 g/dL Normal 3.9-4.9 [facility] Comment on above: Order Comment: Speci men Type: BLOOD SPECIMENOrdering Facility: [facility] Address: [address] [place] [address] Performed By: #### 2 4323-8 ####[facility] LABCLIA [id number] [place] [address] ALP [Catalytic activity/Vol] 131 U/L High 38-113 [facility] Comment on above: Order Comment: Speci men Type: BLOOD SPECIMENOrdering Facility: [facility] Address: [address] [place] [address] Performed By: #### 2 4323-8 ####[facility] LABCLIA [id number] [place] [address] ALT [Catalytic activity/Vol] 26 U/L Normal 10-54 [facility] Comment on above: Order Comment: Speci men Type: BLOOD SPECIMENOrdering Facility: [facility] Address: [address] [place] [address] Performed By: #### 2 4323-8 ####[facility] LABCLIA [id number] [place] [address] Anion gap [Moles/Vol] 10 mmol/L Normal 9-18 [facility] Comment on above: Order Comment: Speci men Type: BLOOD SPECIMENOrdering Facility: [facility] Address: [address] [place] [address] Performed By: #### 2 4323-8 ####[facility] LABCLIA [id number] [place] [address] AST [Catalytic activity/Vol] 28 U/L Normal 14-40 [facility] Comment on above: Order Comment: Speci men Type: BLOOD SPECIMENOrdering Facility: [facility] Address: [address] [place] [address] Performed By: #### 2 4323-8 ####[facility] LABCLIA [id number] [place] [address] Bilirubin [Mass/Vol] 1.3 mg/dL Normal 0.2-1.3 [facility] Comment on above: Order Comment: Speci men Type: BLOOD SPECIMENOrdering Facility: [facility] Address: [address] [place] [address] Performed By: #### 2 4323-8 ####[facility] LABCLIA [id number] [place] [address] Calcium [Mass/Vol] 11.1 mg/dL High 8.5-10.2 [facility] Comment on above: Order Comment: Speci men Type: BLOOD SPECIMENOrdering Facility: [facility] Address: [address] [place] [address] Performed By: #### 2 4323-8 ####[facility] LABCLIA [id number] [place] [address] Chloride [Moles/Vol] 101 mmol/L Normal 97-105 [facility] Comment on above: Order Comment: Speci men Type: BLOOD SPECIMENOrdering Facility: [facility] Address: [address] [place] [address] Performed By: #### 2 4323-8 ####[facility] LABCLIA [id number] [place] [address] CO2 [Moles/Vol] 24 mmol/L Normal 22-30 [facility] Comment on above: Order Comment: Speci men Type: BLOOD SPECIMENOrdering Facility: [facility] Address: [address] [place] [address] Performed By: #### 2 4323-8 ####[facility] LABCLIA [id number] [place] [address] Creatinine [Mass/Vol] 0.87 mg/dL Normal 0.73-1.22 [facility] Comment on above: Order Comment: Speci men Type: BLOOD SPECIMENOrdering Facility: [facility] Address: [address] [place] [address] Performed By: #### 2 4323-8 ####[facility] LABCLIA [id number] [place] [address] Creatinine and Glomerular filtration rate.predicted panel (S/P/Bld) 92 mL/min/1.73m??? Normal >=60 [facility] Comment on above: Order Comment: Noemí hoff Type: BLOOD SPECIMENOrdering Facility: [facility] Address: [address] [place] [address] Result Comment: Kathy mated Glomerular Filtration Rate [...] actual GFR. Performed By: #### 2 4323-8 ####[facility] LABCLIA [id number] [place] [address] Glucose [Mass/Vol] 154 mg/dL High 74-99 [facility] Comment on above: Order Comment: Noemí hoff Type: BLOOD SPECIMENOrdering Facility: [facility] Address: [address] [place] [address] Result Comment: The [employer] Diabetes Association (ADA) provides guidance for cutoff [...] Standards of Medical Care in Diabetes 2016, [employer] Diabetes Association. Diabetes Care. 2016.39(Suppl 1). Performed By: #### 2 4323-8 ####[facility] LABCLIA [id number] [place] [address] Potassium [Moles/Vol] 4.3 mmol/L Normal 3.7-5.1 [facility] Comment on above: Order Comment: Speci men Type: BLOOD SPECIMENOrdering Facility: [facility] Address: [address] [place] [address] Performed By: #### 2 4323-8 ####[facility] LABCLIA [id number] [place] [address] Protein [Mass/Vol] 7.5 g/dL Normal 6.3-8.0 [facility] Comment on above: Order Comment: Speci men Type: BLOOD SPECIMENOrdering Facility: [facility] Address: [address] [place] [address] Performed By: #### 2 4323-8 ####[facility] LABIA [id number] [place] [address] Sodium [Moles/Vol] 135 mmol/L Low 136-144 [facility] Comment on above: Order Comment: Speci men Type: BLOOD SPECIMENOrdering Facility: [facility] Address: [address] [place] [address] Performed By: #### 2 4323-8 ####[facility] LABIA [id number] [place] [address] Urea nitrogen [Mass/Vol] 19 mg/dL Normal 9-24 [facility] Comment on above: Order Comment: Speci men Type: BLOOD SPECIMENOrdering Facility: [facility] Address: [address] [place] [address] Performed By: #### 2 4323-8 ####[facility] LABIA [id number] [place] [address] CNPNon 2023 CNPN Normal [facility] CNPNon 04-07-2023 CNPN Normal [facility] CBC W Auto Differential pane l (Bld)on 04-05-2023 Basophils (Bld) [#/Vol] 0.05 10*3/uL <0.11 k/uL [facility] Basophils/100 WBC (Bld) 0.5 % [facility] Differential cell count method Nom (Bld) Auto [facility] Eosinophils (Bld) [#/Vol] <0.46 k/uL [facility] Eosinophils/100 WBC (Bld) 0.2 % [facility] Erythrocyte distribution width (RBC) [Ratio] 15.3 % High 11.5 - 15.0 % [facility] Hematocrit (Bld) [Volume fraction] 30.3 % Low 39.0 - 51.0 % [facility] Hemoglobin (Bld) [Mass/Vol] 10.0 g/dL Low 13.0 - 17.0 g/dL [facility] Immature granulocytes (Bld) [#/Vol] 0.04 10*3/uL <0.10 k/uL [facility] Immature granulocytes/100 WBC (Bld) 0.4 % [facility] Lymphocytes (Bld) [#/Vol] 1.63 10*3/uL 1.00 - 4.00 k/uL [facility] Lymphocytes/100 WBC (Bld) 15.5 % [facility] MCH (RBC) [Entitic mass] 32.3 pg 26.0 - 34.0 pg [facility] MCHC (RBC) [Mass/Vol] 33.0 g/dL 30.5 - 36.0 g/dL [facility] MCV (RBC) [Entitic vol] 97.7 fL 80.0 - 100.0 fL [facility] Monocytes (Bld) [#/Vol] 0.21 10*3/uL <0.87 k/uL [facility] Monocytes/100 WBC (Bld) 2.0 % [facility] Neutrophils (Bld) [#/Vol] 8.60 10*3/uL High 1.45 - 7.50 k/uL [facility] Neutrophils/100 WBC (Bld) 81.4 % [facility] Nucleated RBC (Bld) [#/Vol] <0.01 k/uL [facility] Nucleated RBC/100 WBC (Bld) [Ratio] 0.0 /100 WBC [facility] Platelet mean volume (Bld) [Entitic vol] 9.7 fL 9.0 - 12.7 fL [facility] Platelets (Bld) [#/Vol] 271 10*3/uL 150 - 400 k/uL [facility] RBC (Bld) [#/Vol] 3.10 10*6/uL Low 4.20 - 6.0 0 m/uL [facility] WBC (Bld) [#/Vol] 10.55 10*3/uL 3.70 - 11.00 k/uL [facility] Basophils (Bld) [#/Vol] 0.05 10*3/uL Normal <0.11 [facility] Comment on above: Order Comment: Speci men Type: BLOOD SPECIMENOrdering Facility: [facility] Address: [address] [place] [address] Performed By: #### 5 7021-8 ####[facility] LABCLIA [id number] [place] [address] Basophils/100 WBC (Bld) 0.5 % Normal [facility] Comment on above: Order Comment: Speci men Type: BLOOD SPECIMENOrdering Facility: [facility] Address: [address] [place] [address] Performed By: #### 5 7021-8 ####[facility] LABCLIA [id number] [place] [address] Differential cell count method Nom (Bld) Auto Normal [facility] Comment on above: Order Comment: Speci men Type: BLOOD SPECIMENOrdering Facility: [facility] Address: [address] [place] [address] Performed By: #### 5 7021-8 ####[facility] LABCLIA [id number] [place] [address] Eosinophils (Bld) [#/Vol] 10*3/uL Normal <0.46 [facility] Comment on above: Order Comment: Speci men Type: BLOOD SPECIMENOrdering Facility: [facility] Address: [address] [place] [address] Performed By: #### 5 7021-8 ####[facility] LABCLIA [id number] [place] [address] Eosinophils/100 WBC (Bld) 0.2 % Normal [facility] Comment on above: Order Comment: Speci men Type: BLOOD SPECIMENOrdering Facility: [facility] Address: [address] [place] [address] Performed By: #### 5 7021-8 ####[facility] LABCLIA [id number] [place] [address] Erythrocyte distribution width (RBC) [Ratio] 15.3 % High 11.5-15.0 [facility] Comment on above: Order Comment: Speci men Type: BLOOD SPECIMENOrdering Facility: [facility] Address: [address] [place] [address] Performed By: #### 5 7021-8 ####[facility] LABCLIA [id number] [place] [address] Hematocrit (Bld) [Volume fraction] 30.3 % Low 39.0-51.0 [facility] Comment on above: Order Comment: Speci men Type: BLOOD SPECIMENOrdering Facility: [facility] Address: [address] [place] [address] Performed By: #### 5 7021-8 ####[facility] LABCLIA [id number] [place] [address] Hemoglobin (Bld) [Mass/Vol] 10.0 g/dL Low 13.0-17.0 [facility] Comment on above: Order Comment: Speci men Type: BLOOD SPECIMENOrdering Facility: [facility] Address: [address] [place] [address] Performed By: #### 5 7021-8 ####[facility] LABCLIA [id number] [place] [address] Immature granulocytes (Bld) [#/Vol] 0.04 10*3/uL Normal <0.10 [facility] Comment on above: Order Comment: Speci men Type: BLOOD SPECIMENOrdering Facility: [facility] Address: [address] [place] [address] Performed By: #### 5 7021-8 ####[facility] LABCLIA [id number] [place] [address] Immature granulocytes/100 WBC (Bld) 0.4 % Normal [facility] Comment on above: Order Comment: Speci men Type: BLOOD SPECIMENOrdering Facility: [facility] Address: [address] [place] [address] Performed By: #### 5 7021-8 ####[facility] LABCLIA [id number] [place] [address] Lymphocytes (Bld) [#/Vol] 1.63 10*3/uL Normal 1.00-4.00 [facility] Comment on above: Order Comment: Speci men Type: BLOOD SPECIMENOrdering Facility: [facility] Address: [address] [place] [address] Performed By: #### 5 7021-8 ####[facility] LABCLIA [id number] [place] [address] Lymphocytes/100 WBC (Bld) 15.5 % Normal [facility] Comment on above: Order Comment: Speci men Type: BLOOD SPECIMENOrdering Facility: [facility] Address: [address] [place] [address] Performed By: #### 5 7021-8 ####[facility] LABCLIA [id number] [place] [address] MCH (RBC) [Entitic mass] 32.3 pg Normal 26.0-34.0 [facility] Comment on above: Order Comment: Speci men Type: BLOOD SPECIMENOrdering Facility: [facility] Address: [address] [place] [address] Performed By: #### 5 7021-8 ####[facility] LABIA [id number] [place] [address] MCHC (RBC) [Mass/Vol] 33.0 g/dL Normal 30.5-36.0 [facility] Comment on above: Order Comment: Speci men Type: BLOOD SPECIMENOrdering Facility: [facility] Address: [address] [place] [address] Performed By: #### 5 7021-8 ####[facility] LABCLIA [id number] [place] [address] MCV (RBC) [Entitic vol] 97.7 fL Normal 80.0-100.0 [facility] Comment on above: Order Comment: Speci men Type: BLOOD SPECIMENOrdering Facility: [facility] Address: [address] [place] [address] Performed By: #### 5 7021-8 ####[facility] LABCLIA [id number] [place] [address] Monocytes (Bld) [#/Vol] 0.21 10*3/uL Normal <0.87 [facility] Comment on above: Order Comment: Speci men Type: BLOOD SPECIMENOrdering Facility: [facility] Address: [address] [place] [address] Performed By: #### 5 7021-8 ####[facility] LABCLIA [id number] [place] [address] Monocytes/100 WBC (Bld) 2.0 % Normal [facility] Comment on above: Order Comment: Speci men Type: BLOOD SPECIMENOrdering Facility: [facility] Address: [address] [place] [address] Performed By: #### 5 7021-8 ####[facility] LABCLIA [id number] [place] [address] Neutrophils (Bld) [#/Vol] 8.60 10*3/uL High 1.45-7.50 [facility] Comment on above: Order Comment: Speci men Type: BLOOD SPECIMENOrdering Facility: [facility] Address: [address] [place] [address] Performed By: #### 5 7021-8 ####[facility] LABCLIA [id number] [place] [address] Neutrophils/100 WBC (Bld) 81.4 % Normal [facility] Comment on above: Order Comment: Speci men Type: BLOOD SPECIMENOrdering Facility: [facility] Address: [address] [place] [address] Performed By: #### 5 7021-8 ####[facility] LABCLIA [id number] [place] [address] Nucleated RBC (Bld) [#/Vol] 10*3/uL Normal <0.01 [facility] Comment on above: Order Comment: Speci men Type: BLOOD SPECIMENOrdering Facility: [facility] Address: [address] [place] [address] Performed By: #### 5 7021-8 ####[facility] LABCLIA [id number] [place] [address] Nucleated RBC/100 WBC (Bld) [Ratio] 0.0 /100 WBC Normal [facility] Comment on above: Order Comment: Speci men Type: BLOOD SPECIMENOrdering Facility: [facility] Address: [address] [place] [address] Performed By: #### 5 7021-8 ####[facility] LABCLIA [id number] [place] [address] Platelet mean volume (Bld) [Entitic vol] 9.7 fL Normal 9.0-12.7 [facility] Comment on above: Order Comment: Speci men Type: BLOOD SPECIMENOrdering Facility: [facility] Address: [address] [place] [address] Performed By: #### 5 7021-8 ####[facility] LABCLIA [id number] [place] [address] Platelets (Bld) [#/Vol] 271 10*3/uL Normal 150-400 [facility] Comment on above: Order Comment: Speci men Type: BLOOD SPECIMENOrdering Facility: [facility] Address: [address] [place] [address] Performed By: #### 5 7021-8 ####[facility] LABCLIA [id number] [place] [address] RBC (Bld) [#/Vol] 3.10 10*6/uL Low 4.20-6.00 [facility] Comment on above: Order Comment: Speci men Type: BLOOD SPECIMENOrdering Facility: [facility] Address: [address] [place] [address] Performed By: #### 5 7021-8 ####[facility] LABCLIA [id number] [place] [address] WBC (Bld) [#/Vol] 10.55 10*3/uL Normal 3.70-11.00 [facility] Comment on above: Order Comment: Speci men Type: BLOOD SPECIMENOrdering Facility: [facility] Address: [address] [place] [address] Performed By: #### 5 7021-8 ####[facility] LABCLIA [id number] [place] [address] CNOVSPon 04-05-2023 CNOVSP Normal [facility] Cancer Ag19-9 SerPl-aCncon 1 06-05-2022 Cancer Ag 19-9 Qn 1648.0 [arb'U]/mL High <36.0 [facility] Comment on above: Order Comment: Speci men Type: BLOOD SPECIMENOrdering Facility: [facility] Address: [address] [place] [address] Result Comment: [facility] er antigen 19-9 test is used as an aid in monitoring response to treatment or recurrence in patients with established pancreatic, hepatobiliary, or gastrointestinal malignancies. Clinical correlation is required.The CA 19-9 Antigen test was performed using the [employer] [employer] DXI paramagnetic particle chemiluminescent immunoassay method. Results obtained with different assay methods or kits cannot be used interchangeably. Performed By: #### 2 4108-3 ####[facility] LABCLIA [id number] [facility] [id number] [address] [place] Comprehensive metabolic 2000 panelon 04-05-2023 Albumin [Mass/Vol] 4.2 g/dL 3.9 - 4.9 g/dL [facility] ALP [Catalytic activity/Vol] 112 U/L 38 - 113 U/L [facility] ALT [Catalytic activity/Vol] 18 U/L 10 - 54 U/L [facility] Anion gap [Moles/Vol] 8 mmol/L Low 9 - 18 mmol/L [facility] AST [Catalytic activity/Vol] 21 U/L 14 - 40 U/L [facility] Bilirubin [Mass/Vol] 1.2 mg/dL 0.2 - 1 .3 mg/dL [facility] Calcium [Mass/Vol] 10.9 mg/dL High 8.5 - 10. 2 mg/dL [facility] Chloride [Moles/Vol] 101 mmol/L 97 - 10 5 mmol/L [facility] CO2 [Moles/Vol] 25 mmol/L 22 - 30 mmol/L [facility] Creatinine [Mass/Vol] 0.79 mg/dL 0.73 - 1.22 mg/dL [facility] Estimated Glomerular Filtration Rate 95 mL/min/1.73m >=60 mL/min/1.73 m [facility] Glucose [Mass/Vol] 122 mg/dL High 74 - 99 mg/dL [facility] Potassium [Moles/Vol] 4.1 mmol/L 3.7 - 5.1 mmol/L [facility] Protein [Mass/Vol] 7.1 g/dL 6.3 - 8.0 g/dL [facility] Sodium [Moles/Vol] 134 mmol/L Low 136 - 144 mmol/L [facility] Urea nitrogen [Mass/Vol] 21 mg/dL 9 - 24 mg/dL [facility] Albumin [Mass/Vol] 4.2 g/dL Normal 3.9-4.9 [facility] Comment on above: Order Comment: Speci men Type: BLOOD SPECIMENOrdering Facility: [facility] Address: [address] [place] [address] Performed By: #### 2 4323-8 ####[facility] LABCLIA [id number] [place] [address] ALP [Catalytic activity/Vol] 112 U/L Normal 38-113 [facility] Comment on above: Order Comment: Speci men Type: BLOOD SPECIMENOrdering Facility: [facility] Address: [address] [place] [address] Performed By: #### 2 4323-8 ####[facility] LABCLIA [id number] [place] [address] ALT [Catalytic activity/Vol] 18 U/L Normal 10-54 [facility] Comment on above: Order Comment: Speci men Type: BLOOD SPECIMENOrdering Facility: [facility] Address: [address] [place] [address] Performed By: #### 2 4323-8 ####[facility] LABCLIA [id number] [place] [address] Anion gap [Moles/Vol] 8 mmol/L Low 9-18 [facility] Comment on above: Order Comment: Speci men Type: BLOOD SPECIMENOrdering Facility: [facility] Address: [address] [place] [address] Performed By: #### 2 4323-8 ####[facility] LABCLIA [id number] [place] [address] AST [Catalytic activity/Vol] 21 U/L Normal 14-40 [facility] Comment on above: Order Comment: Speci men Type: BLOOD SPECIMENOrdering Facility: [facility] Address: [address] [place] [address] Performed By: #### 2 4323-8 ####[facility] LABCLIA [id number] [place] [address] Bilirubin [Mass/Vol] 1.2 mg/dL Normal 0.2-1.3 [facility] Comment on above: Order Comment: Speci men Type: BLOOD SPECIMENOrdering Facility: [facility] Address: [address] [place] [address] Performed By: #### 2 4323-8 ####[facility] LABCLIA [id number] [place] [address] Calcium [Mass/Vol] 10.9 mg/dL High 8.5-10.2 [facility] Comment on above: Order Comment: Speci men Type: BLOOD SPECIMENOrdering Facility: [facility] Address: [address] [place] [address] Performed By: #### 2 4323-8 ####[facility] LABCLIA [id number] [place] [address] Chloride [Moles/Vol] 101 mmol/L Normal 97-105 [facility] Comment on above: Order Comment: Speci men Type: BLOOD SPECIMENOrdering Facility: [facility] Address: [address] [place] [address] Performed By: #### 2 4323-8 ####[facility] LABCLIA [id number] [place] [address] CO2 [Moles/Vol] 25 mmol/L Normal 22-30 [facility] Comment on above: Order Comment: Speci men Type: BLOOD SPECIMENOrdering Facility: [facility] Address: [address] [place] [address] Performed By: #### 2 4323-8 ####[facility] LABCLIA [id number] [place] [address] Creatinine [Mass/Vol] 0.79 mg/dL Normal 0.73-1.22 [facility] Comment on above: Order Comment: Speci men Type: BLOOD SPECIMENOrdering Facility: [facility] Address: [address] [place] [address] Performed By: #### 2 4323-8 ####[facility] LABCLIA [id number] [place] [address] Creatinine and Glomerular filtration rate.predicted panel (S/P/Bld) 95 mL/min/1.73m??? Normal >=60 [facility] Comment on above: Order Comment: Speci men Type: BLOOD SPECIMENOrdering Facility: [facility] Address: [address] [place] [address] Result Comment: Kathy mated Glomerular Filtration Rate [...] actual GFR. Performed By: #### 2 4323-8 ####[facility] LABCLIA [id number] [place] [address] Glucose [Mass/Vol] 122 mg/dL High 74-99 [facility] Comment on above: Order Comment: Noemí hoff Type: BLOOD SPECIMENOrdering Facility: [facility] Address: [address] [place] [address] Result Comment: The [employer] Diabetes Association (ADA) provides guidance for cutoff [...] Standards of Medical Care in Diabetes 2016, [employer] Diabetes [employer]. Diabetes Care. 2016.39(Suppl 1). Performed By: #### 2 4323-8 ####[facility] LABCLIA [id number] [place] [address] Potassium [Moles/Vol] 4.1 mmol/L Normal 3.7-5.1 [facility] Comment on above: Order Comment: Noemí hoff Type: BLOOD SPECIMENOrdering Facility: [facility] Address: [address] [place] [address] Performed By: #### 2 4323-8 ####[facility] LABCLIA [id number] [place] [address] Protein [Mass/Vol] 7.1 g/dL Normal 6.3-8.0 [facility] Comment on above: Order Comment: Speci men Type: BLOOD SPECIMENOrdering Facility: [facility] Address: [address] [place] [address] Performed By: #### 2 4323-8 ####[facility] LABCLIA [id number] [place] [address] Sodium [Moles/Vol] 134 mmol/L Low 136-144 [facility] Comment on above: Order Comment: Speci men Type: BLOOD SPECIMENOrdering Facility: [facility] Address: [address] [place] [address] Performed By: #### 2 4323-8 ####[facility] LABCLIA [id number] [place] [address] Urea nitrogen [Mass/Vol] 21 mg/dL Normal 9-24 [facility] Comment on above: Order Comment: Speci men Type: BLOOD SPECIMENOrdering Facility: [facility] Address: [address] [place] [address] Performed By: #### 2 4323-8 ####[facility] LABCLIA [id number] [place] [address] CNPNon 04-04-2023 CNPN Normal [facility] CBC W Auto Differential pane l (Bld)on 03-30-2023 Basophils (Bld) [#/Vol] 0.04 10*3/uL Normal <0.11 [facility] Comment on above: Order Comment: Speci men Type: BLOOD SPECIMENOrdering Facility: [facility] Address: [address] [place] [address] Performed By: #### 5 7021-8 ####[facility] LABCLIA [id number] [place] [address] Basophils/100 WBC (Bld) 0.5 % Normal [facility] Comment on above: Order Comment: Speci men Type: BLOOD SPECIMENOrdering Facility: [facility] Address: [address] [place] [address] Performed By: #### 5 7021-8 ####[facility] LABCLIA [id number] [place] [address] Differential cell count method Nom (Bld) Auto Normal [facility] Comment on above: Order Comment: Speci men Type: BLOOD SPECIMENOrdering Facility: [facility] Address: [address] [place] [address] Performed By: #### 5 7021-8 ####[facility] LABCLIA [id number] [place] [address] Eosinophils (Bld) [#/Vol] 0.03 10*3/uL Normal <0.46 [facility] Comment on above: Order Comment: Speci men Type: BLOOD SPECIMENOrdering Facility: [facility] Address: [address] [place] [address] Performed By: #### 5 7021-8 ####[facility] LABCLIA [id number] [place] [address] Eosinophils/100 WBC (Bld) 0.4 % Normal [facility] Comment on above: Order Comment: Speci men Type: BLOOD SPECIMENOrdering Facility: [facility] Address: [address] [place] [address] Performed By: #### 5 7021-8 ####[facility] LABCLIA [id number] [place] [address] Erythrocyte distribution width (RBC) [Ratio] 16.0 % High 11.5-15.0 [facility] Comment on above: Order Comment: Speci men Type: BLOOD SPECIMENOrdering Facility: [facility] Address: [address] [place] [address] Performed By: #### 5 7021-8 ####[facility] LABIA [id number] [place] [address] Hematocrit (Bld) [Volume fraction] 35.6 % Low 39.0-51.0 [facility] Comment on above: Order Comment: Speci men Type: BLOOD SPECIMENOrdering Facility: [facility] Address: [address] [place] [address] Performed By: #### 5 7021-8 ####[facility] LABCLIA [id number] [place] [address] Hemoglobin (Bld) [Mass/Vol] 11.2 g/dL Low 13.0-17.0 [facility] Comment on above: Order Comment: Speci men Type: BLOOD SPECIMENOrdering Facility: [facility] Address: [address] [place] [address] Performed By: #### 5 7021-8 ####[facility] LABCLIA [id number] [place] [address] Immature granulocytes (Bld) [#/Vol] 0.07 10*3/uL Normal <0.10 [facility] Comment on above: Order Comment: Speci men Type: BLOOD SPECIMENOrdering Facility: [facility] Address: [address] [place] [address] Performed By: #### 5 7021-8 ####[facility] LABCLIA [id number] [place] [address] Immature granulocytes/100 WBC (Bld) 0.9 % Normal [facility] Comment on above: Order Comment: Speci men Type: BLOOD SPECIMENOrdering Facility: [facility] Address: [address] [place] [address] Performed By: #### 5 7021-8 ####[facility] LABCLIA [id number] [place] [address] Lymphocytes (Bld) [#/Vol] 1.68 10*3/uL Normal 1.00-4.00 [facility] Comment on above: Order Comment: Speci men Type: BLOOD SPECIMENOrdering Facility: [facility] Address: [address] [place] [address] Performed By: #### 5 7021-8 ####[facility] LABCLIA [id number] [place] [address] Lymphocytes/100 WBC (Bld) 21.3 % Normal [facility] Comment on above: Order Comment: Speci men Type: BLOOD SPECIMENOrdering Facility: [facility] Address: [address] [place] [address] Performed By: #### 5 7021-8 ####[facility] LABCLIA [id number] [place] [address] MCH (RBC) [Entitic mass] 31.5 pg Normal 26.0-34.0 [facility] Comment on above: Order Comment: Speci men Type: BLOOD SPECIMENOrdering Facility: [facility] Address: [address] [place] [address] Performed By: #### 5 7021-8 ####[facility] LABCLIA [id number] [place] [address] MCHC (RBC) [Mass/Vol] 31.5 g/dL Normal 30.5-36.0 [facility] Comment on above: Order Comment: Speci men Type: BLOOD SPECIMENOrdering Facility: [facility] Address: [address] [place] [address] Performed By: #### 5 7021-8 ####[facility] LABCLIA [id number] [place] [address] MCV (RBC) [Entitic vol] 100.0 fL Normal 80.0-100.0 [facility] Comment on above: Order Comment: Speci men Type: BLOOD SPECIMENOrdering Facility: [facility] Address: [address] [place] [address] Performed By: #### 5 7021-8 ####[facility] LABCLIA [id number] [place] [address] Monocytes (Bld) [#/Vol] 0.82 10*3/uL Normal <0.87 [facility] Comment on above: Order Comment: Speci men Type: BLOOD SPECIMENOrdering Facility: [facility] Address: [address] [place] [address] Performed By: #### 5 7021-8 ####[facility] LABCLIA [id number] [place] [address] Monocytes/100 WBC (Bld) 10.4 % Normal [facility] Comment on above: Order Comment: Speci men Type: BLOOD SPECIMENOrdering Facility: [facility] Address: [address] [place] [address] Performed By: #### 5 7021-8 ####[facility] LABCLIA [id number] [place] [address] Neutrophils (Bld) [#/Vol] 5.24 10*3/uL Normal 1.45-7.50 [facility] Comment on above: Order Comment: Speci men Type: BLOOD SPECIMENOrdering Facility: [facility] Address: [address] [place] [address] Performed By: #### 5 7021-8 ####[facility] LABCLIA [id number] [place] [address] Neutrophils/100 WBC (Bld) 66.5 % Normal [facility] Comment on above: Order Comment: Speci men Type: BLOOD SPECIMENOrdering Facility: [facility] Address: [address] [place] [address] Performed By: #### 5 7021-8 ####[facility] LABCLIA [id number] [place] [address] Nucleated RBC (Bld) [#/Vol] 10*3/uL Normal <0.01 [facility] Comment on above: Order Comment: Speci men Type: BLOOD SPECIMENOrdering Facility: [facility] Address: [address] [place] [address] Performed By: #### 5 7021-8 ####[facility] LABIA [id number] [place] [address] Nucleated RBC/100 WBC (Bld) [Ratio] 0.0 /100 WBC Normal [facility] Comment on above: Order Comment: Speci men Type: BLOOD SPECIMENOrdering Facility: [facility] Address: [address] [place], [place] [address] Performed By: #### 5 7021-8 ####[facility] LABCLIA [id number] [place] [address] Platelet mean volume (Bld) [Entitic vol] 9.5 fL Normal 9.0-12.7 [facility] Comment on above: Order Comment: Speci men Type: BLOOD SPECIMENOrdering Facility: [facility] Address: [address] [place] [address] Performed By: #### 5 7021-8 ####[facility] LABCLIA [id number] [place] [address] Platelets (Bld) [#/Vol] 479 10*3/uL High 150-400 [facility] Comment on above: Order Comment: Speci men Type: BLOOD SPECIMENOrdering Facility: [facility] Address: [address] [place] [address] Performed By: #### 5 7021-8 ####[facility] LABCLIA [id number] [place] [address] RBC (Bld) [#/Vol] 3.56 10*6/uL Low 4.20-6.00 [facility] Comment on above: Order Comment: Speci men Type: BLOOD SPECIMENOrdering Facility: [facility] Address: [address] [place] [address] Performed By: #### 5 7021-8 ####[facility] LABCLIA [id number] [place] [address] WBC (Bld) [#/Vol] 7.88 10*3/uL Normal 3.70-11.00 [facility] Comment on above: Order Comment: Speci men Type: BLOOD SPECIMENOrdering Facility: [facility] Address: [address] [place] [address] Performed By: #### 5 7021-8 ####[facility] LABCLIA [id number] [place] [address] CNOVSPon 03-30-2023 CNOVSP Normal [facility] Cancer Ag19-9 SerPl-aCncon 1 05-30-2022 Cancer Ag 19-9 Qn 2555.0 [arb'U]/mL High <36.0 [facility] Comment on above: Order Comment: Speci men Type: BLOOD SPECIMENOrdering Facility: [facility] Address: [address] [place] [address] Result Comment: [facility] er antigen 19-9 test is used as an aid in monitoring response to treatment or recurrence in patients with established pancreatic, hepatobiliary, or gastrointestinal malignancies. Clinical correlation is required.The CA 19-9 Antigen test was performed using the [employer] DXI paramagnetic particle chemiluminescent immunoassay method. Results obtained with different assay methods or kits cannot be used interchangeably. Performed By: #### 2 4108-3 ####[facility] LABCLIA [id number] [facility] [id number] [address] [place] Comprehensive metabolic 2000 panelon 03-30-2023 Albumin [Mass/Vol] 4.2 g/dL Normal 3.9-4.9 [facility] Comment on above: Order Comment: Speci men Type: BLOOD SPECIMENOrdering Facility: [facility] Address: [address] [place] [address] Performed By: #### 2 4323-8 ####[facility] LABCLIA [id number] [place] [address] ALP [Catalytic activity/Vol] 124 U/L High 38-113 [facility] Comment on above: Order Comment: Speci men Type: BLOOD SPECIMENOrdering Facility: [facility] Address: [address] [place] [address] Performed By: #### 2 4323-8 ####[facility] LABCLIA [id number] [place] [address] ALT [Catalytic activity/Vol] 20 U/L Normal 10-54 [facility] Comment on above: Order Comment: Speci men Type: BLOOD SPECIMENOrdering Facility: [facility] Address: [address] [place] [address] Performed By: #### 2 4323-8 ####[facility] LABCLIA [id number] [place] [address] Anion gap [Moles/Vol] 7 mmol/L Low 9-18 [facility] Comment on above: Order Comment: Speci men Type: BLOOD SPECIMENOrdering Facility: [facility] Address: [address] [place] [address] Performed By: #### 2 4323-8 ####[facility] LABCLIA [id number] [place] [address] AST [Catalytic activity/Vol] 20 U/L Normal 14-40 [facility] Comment on above: Order Comment: Speci men Type: BLOOD SPECIMENOrdering Facility: [facility] Address: [address] [place] [address] Performed By: #### 2 4323-8 ####[facility] LABCLIA [id number] [place] [address] Bilirubin [Mass/Vol] 1.0 mg/dL Normal 0.2-1.3 [facility] Comment on above: Order Comment: Speci men Type: BLOOD SPECIMENOrdering Facility: [facility] Address: [address] [place] [address] Performed By: #### 2 4323-8 ####[facility] LABCLIA [id number] [place] [address] Calcium [Mass/Vol] 10.5 mg/dL High 8.5-10.2 [facility] Comment on above: Order Comment: Speci men Type: BLOOD SPECIMENOrdering Facility: [facility] Address: [address] [place] [address] Performed By: #### 2 4323-8 ####[facility] LABCLIA [id number] [place] [address] Chloride [Moles/Vol] 104 mmol/L Normal 97-105 [facility] Comment on above: Order Comment: Speci men Type: BLOOD SPECIMENOrdering Facility: [facility] Address: [address] [place] [address] Performed By: #### 2 4323-8 ####[facility] LABCLIA [id number] [place] [address] CO2 [Moles/Vol] 26 mmol/L Normal 22-30 [facility] Comment on above: Order Comment: Speci men Type: BLOOD SPECIMENOrdering Facility: [facility] Address: [address] [place] [address] Performed By: #### 2 4323-8 ####[facility] LABCLIA [id number] [place] [address] Creatinine [Mass/Vol] 0.78 mg/dL Normal 0.73-1.22 [facility] Comment on above: Order Comment: Speci men Type: BLOOD SPECIMENOrdering Facility: [facility] Address: [address] [place] [address] Performed By: #### 2 4323-8 ####[facility] LABCLIA [id number] [place] [address] Creatinine and Glomerular filtration rate.predicted panel (S/P/Bld) 95 mL/min/1.73m??? Normal >=60 [facility] Comment on above: Order Comment: Speci men Type: BLOOD SPECIMENOrdering Facility: [facility] Address: [address] [place] [address] Result Comment: Kathy mated Glomerular Filtration Rate [...] actual GFR. Performed By: #### 2 4323-8 ####[facility] LABCLIA [id number] [place] [address] Glucose [Mass/Vol] 137 mg/dL High 74-99 [facility] Comment on above: Order Comment: Speci men Type: BLOOD SPECIMENOrdering Facility: [facility] Address: [address] [place] [address] Result Comment: The [employer] Diabetes Association (ADA) provides guidance for cutoff [...] Standards of Medical Care in Diabetes 2016, [employer] Diabetes [employer]. Diabetes Care. 2016.39(Suppl 1). Performed By: #### 2 4323-8 ####[facility] LABCLIA [id number] [place] [address] Potassium [Moles/Vol] 4.6 mmol/L Normal 3.7-5.1 [facility] Comment on above: Order Comment: Speci men Type: BLOOD SPECIMENOrdering Facility: [facility] Address: [address] [place] [address] Performed By: #### 2 4323-8 ####[facility] LABCLIA [id number] [place] [address] Protein [Mass/Vol] 7.0 g/dL Normal 6.3-8.0 [facility] Comment on above: Order Comment: Speci men Type: BLOOD SPECIMENOrdering Facility: [facility] Address: [address] [place] [address] Performed By: #### 2 4323-8 ####[facility] LABCLIA [id number] [place] [address] Sodium [Moles/Vol] 137 mmol/L Normal 136-144 [facility] Comment on above: Order Comment: Speci men Type: BLOOD SPECIMENOrdering Facility: [facility] Address: [address] [place] [id number] Performed By: #### 2 4323-8 ####[facility] LABCLIA [id number] [place] [address] Urea nitrogen [Mass/Vol] 20 mg/dL Normal 9-24 [facility] Comment on above: Order Comment: Speci men Type: BLOOD SPECIMENOrdering Facility: [facility] Address: [address] [place] [id number] Performed By: #### 2 4323-8 ####[facility] LABCLIA [id number] [place] [address] CBC W Auto Differential pane l (Bld)on 03-08-2023 Basophils (Bld) [#/Vol] 0.04 10*3/uL <0.11 k/uL [facility] Basophils/100 WBC (Bld) 0.9 % [facility] Differential cell count method Nom (Bld) Auto [facility] Eosinophils (Bld) [#/Vol] <0.46 k/uL [facility] Eosinophils/100 WBC (Bld) 0.2 % [facility] Erythrocyte distribution width (RBC) [Ratio] 14.8 % 11.5 - 15.0 % [facility] Hematocrit (Bld) [Volume fraction] 31.4 % Low 39.0 - 51.0 % [facility] Hemoglobin (Bld) [Mass/Vol] 10.2 g/dL Low 13.0 - 17.0 g/dL [facility] Immature granulocytes (Bld) [#/Vol] 0.05 10*3/uL <0.10 k/uL [facility] Immature granulocytes/100 WBC (Bld) 1.1 % [facility] Lymphocytes (Bld) [#/Vol] 1.26 10*3/uL 1.00 - 4.00 k/uL [facility] Lymphocytes/100 WBC (Bld) 28.8 % [facility] MCH (RBC) [Entitic mass] 32.4 pg 26.0 - 34.0 pg [facility] MCHC (RBC) [Mass/Vol] 32.5 g/dL 30.5 - 36.0 g/dL [facility] MCV (RBC) [Entitic vol] 99.7 fL 80.0 - 100.0 fL [facility] Monocytes (Bld) [#/Vol] 0.29 10*3/uL <0.87 k/uL [facility] Monocytes/100 WBC (Bld) 6.6 % [facility] Neutrophils (Bld) [#/Vol] 2.72 10*3/uL 1.45 - 7.50 k/uL [facility] Neutrophils/100 WBC (Bld) 62.4 % [facility] Nucleated RBC (Bld) [#/Vol] <0.01 k/uL [facility] Nucleated RBC/100 WBC (Bld) [Ratio] 0.0 /100 WBC [facility] Platelet mean volume (Bld) [Entitic vol] 9.9 fL 9.0 - 12.7 fL [facility] Platelets (Bld) [#/Vol] 236 10*3/uL 150 - 400 k/uL [facility] RBC (Bld) [#/Vol] 3.15 10*6/uL Low 4.20 - 6.0 0 m/uL [facility] WBC (Bld) [#/Vol] 4.37 10*3/uL 3.70 - 11.00 k/uL [facility] Comprehensive metabolic 2000 panelon 03-08-2023 Albumin [Mass/Vol] 4.2 g/dL 3.9 - 4.9 g/dL [facility] ALP [Catalytic activity/Vol] 128 U/L High 38 - 113 U/L [facility] ALT [Catalytic activity/Vol] 32 U/L 10 - 54 U/L [facility] Anion gap [Moles/Vol] 8 mmol/L Low 9 - 18 mmol/L [facility] AST [Catalytic activity/Vol] 26 U/L 14 - 40 U/L [facility] Bilirubin [Mass/Vol] 1.2 mg/dL 0.2 - 1 .3 mg/dL [facility] Calcium [Mass/Vol] 10.8 mg/dL High 8.5 - 10. 2 mg/dL [facility] Chloride [Moles/Vol] 103 mmol/L 97 - 10 5 mmol/L [facility] CO2 [Moles/Vol] 25 mmol/L 22 - 30 mmol/L [facility] Creatinine [Mass/Vol] 0.94 mg/dL 0.73 - 1.22 mg/dL [facility] Estimated Glomerular Filtration Rate 87 mL/min/1.73m >=60 mL/min/1.73 m [facility] Glucose [Mass/Vol] 138 mg/dL High 74 - 99 mg/dL [facility] Potassium [Moles/Vol] 4.2 mmol/L 3.7 - 5.1 mmol/L [facility] Protein [Mass/Vol] 7.0 g/dL 6.3 - 8.0 g/dL [facility] Sodium [Moles/Vol] 136 mmol/L 136 - 144 mmol/L [facility] Urea nitrogen [Mass/Vol] 15 mg/dL 9 - 24 mg/dL [facility] CBC W Auto Differential pane l (Bld)on 03-01-2023 Basophils (Bld) [#/Vol] 0.04 10*3/uL <0.11 k/uL [facility] Basophils/100 WBC (Bld) 0.5 % [facility] Differential cell count method Nom (Bld) Auto [facility] Eosinophils (Bld) [#/Vol] <0.46 k/uL [facility] Eosinophils/100 WBC (Bld) 0.2 % [facility] Erythrocyte distribution width (RBC) [Ratio] 15.6 % High 11.5 - 15.0 % [facility] Hematocrit (Bld) [Volume fraction] 37.3 % Low 39.0 - 51.0 % [facility] Hemoglobin (Bld) [Mass/Vol] 11.9 g/dL Low 13.0 - 17.0 g/dL [facility] Immature granulocytes (Bld) [#/Vol] 0.07 10*3/uL <0.10 k/uL [facility] Immature granulocytes/100 WBC (Bld) 0.9 % [facility] Lymphocytes (Bld) [#/Vol] 1.45 10*3/uL 1.00 - 4.00 k/uL [facility] Lymphocytes/100 WBC (Bld) 17.9 % [facility] MCH (RBC) [Entitic mass] 32.4 pg 26.0 - 34.0 pg [facility] MCHC (RBC) [Mass/Vol] 31.9 g/dL 30.5 - 36.0 g/dL [facility] MCV (RBC) [Entitic vol] 101.6 fL High 80.0 - 100.0 fL [facility] Monocytes (Bld) [#/Vol] 0.94 10*3/uL High <0.87 k/uL [facility] Monocytes/100 WBC (Bld) 11.6 % [facility] Neutrophils (Bld) [#/Vol] 5.58 10*3/uL 1.45 - 7.50 k/uL [facility] Neutrophils/100 WBC (Bld) 68.9 % [facility] Nucleated RBC (Bld) [#/Vol] <0.01 k/uL [facility] Nucleated RBC/100 WBC (Bld) [Ratio] 0.0 /100 WBC [facility] Platelet mean volume (Bld) [Entitic vol] 9.2 fL 9.0 - 12.7 fL [facility] Platelets (Bld) [#/Vol] 449 10*3/uL High 150 - 400 k/uL [facility] RBC (Bld) [#/Vol] 3.67 10*6/uL Low 4.20 - 6.0 0 m/uL [facility] WBC (Bld) [#/Vol] 8.10 10*3/uL 3.70 - 11.00 k/uL [facility] CBC W Auto Differential pane l (Bld)on 02-01-2023 Basophils (Bld) [#/Vol] <0.11 k/uL [facility] Basophils/100 WBC (Bld) 0.2 % [facility] Differential cell count method Nom (Bld) Auto [facility] Eosinophils (Bld) [#/Vol] <0.46 k/uL [facility] Eosinophils/100 WBC (Bld) 0.2 % [facility] Erythrocyte distribution width (RBC) [Ratio] 14.3 % 11.5 - 15.0 % [facility] Hematocrit (Bld) [Volume fraction] 35.3 % Low 39.0 - 51.0 % [facility] Hemoglobin (Bld) [Mass/Vol] 11.7 g/dL Low 13.0 - 17.0 g/dL [facility] Immature granulocytes (Bld) [#/Vol] 0.05 10*3/uL <0.10 k/uL [facility] Immature granulocytes/100 WBC (Bld) 0.4 % [facility] Lymphocytes (Bld) [#/Vol] 1.68 10*3/uL 1.00 - 4.00 k/uL [facility] Lymphocytes/100 WBC (Bld) 14.6 % [facility] MCH (RBC) [Entitic mass] 32.4 pg 26.0 - 34.0 pg [facility] MCHC (RBC) [Mass/Vol] 33.1 g/dL 30.5 - 36.0 g/dL [facility] MCV (RBC) [Entitic vol] 97.8 fL 80.0 - 100.0 fL [facility] Monocytes (Bld) [#/Vol] 0.70 10*3/uL <0.87 k/uL [facility] Monocytes/100 WBC (Bld) 6.1 % [facility] Neutrophils (Bld) [#/Vol] 9.04 10*3/uL High 1.45 - 7.50 k/uL [facility] Neutrophils/100 WBC (Bld) 78.5 % [facility] Nucleated RBC (Bld) [#/Vol] <0.01 k/uL [facility] Nucleated RBC/100 WBC (Bld) [Ratio] 0.0 /100 WBC [facility] Platelet mean volume (Bld) [Entitic vol] 10.1 fL 9.0 - 12.7 fL [facility] Platelets (Bld) [#/Vol] 267 10*3/uL 150 - 400 k/uL [facility] RBC (Bld) [#/Vol] 3.61 10*6/uL Low 4.20 - 6.0 0 m/uL [facility] WBC (Bld) [#/Vol] 11.51 10*3/uL High 3.70 - 11.00 k/uL [facility] Comprehensive metabolic 2000 panelon 02-01-2023 Albumin [Mass/Vol] 4.2 g/dL 3.9 - 4.9 g/dL [facility] ALP [Catalytic activity/Vol] 139 U/L High 38 - 113 U/L [facility] ALT [Catalytic activity/Vol] 23 U/L 10 - 54 U/L [facility] Anion gap [Moles/Vol] 11 mmol/L 9 - 18 mmol/L [facility] AST [Catalytic activity/Vol] 19 U/L 14 - 40 U/L [facility] Bilirubin [Mass/Vol] 1.3 mg/dL 0.2 - 1 .3 mg/dL [facility] Calcium [Mass/Vol] 10.7 mg/dL High 8.5 - 10. 2 mg/dL [facility] Chloride [Moles/Vol] 102 mmol/L 97 - 10 5 mmol/L [facility] CO2 [Moles/Vol] 23 mmol/L 22 - 30 mmol/L [facility] Creatinine [Mass/Vol] 0.97 mg/dL 0.73 - 1.22 mg/dL [facility] Estimated Glomerular Filtration Rate 83 mL/min/1.73m >=60 mL/min/1.73 m [facility] Glucose [Mass/Vol] 172 mg/dL High 74 - 99 mg/dL [facility] Potassium [Moles/Vol] 4.4 mmol/L 3.7 - 5.1 mmol/L [facility] Protein [Mass/Vol] 7.2 g/dL 6.3 - 8.0 g/dL [facility] Sodium [Moles/Vol] 136 mmol/L 136 - 144 mmol/L [facility] Urea nitrogen [Mass/Vol] 22 mg/dL 9 - 24 mg/dL [facility] CT cervical spine wo [facility] 0 12-15-2022 CT cervical spine wo [facility] [place] [address] CT Scan Report Signed Patient: Trinity Perry MR#: [id number] [birth year] : 1950 Acct:[id number] Age/Sex: 72 / M ADM Date: 12/15/22 Loc: ER Room: Type: PRE ER Attending Dr: Copies to: Jemma Padilla APRN Ordering Provider: Jemma Padilla APRN Date of Service: 12/15/22 CT/CT head/brain wo con: injury ([id number]) CT/CT cervical spine wo con: fall CT [...] Saldaña Jr., Jossy12/15/2022 3:56 PM Dictation Location: [place] [address] Transcribed By: [facility] 12/15/22 1556 Dictated By: Ronnie Saldaña Jr, DO 12/15/22 1551 Signed By: 12/15/22 1556 Normal [facility] CBC W Auto Differential pane l (Bld)on 12-14-2022 Basophils (Bld) [#/Vol] 0.03 10*3/uL <0.11 k/uL [facility] Basophils/100 WBC (Bld) 0.5 % [facility] Differential cell count method Nom (Bld) Auto [facility] Eosinophils (Bld) [#/Vol] <0.46 k/uL [facility] Eosinophils/100 WBC (Bld) 0.2 % [facility] Erythrocyte distribution width (RBC) [Ratio] 19.2 % High 11.5 - 15.0 % [facility] Hematocrit (Bld) [Volume fraction] 33.4 % Low 39.0 - 51.0 % [facility] Hemoglobin (Bld) [Mass/Vol] 10.5 g/dL Low 13.0 - 17.0 g/dL [facility] Immature granulocytes (Bld) [#/Vol] <0.10 k/uL [facility] Immature granulocytes/100 WBC (Bld) 0.3 % [facility] Lymphocytes (Bld) [#/Vol] 1.25 10*3/uL 1.00 - 4.00 k/uL [facility] Lymphocytes/100 WBC (Bld) 19.1 % [facility] MCH (RBC) [Entitic mass] 32.0 pg 26.0 - 34.0 pg [facility] MCHC (RBC) [Mass/Vol] 31.4 g/dL 30.5 - 36.0 g/dL [facility] MCV (RBC) [Entitic vol] 101.8 fL High 80.0 - 100.0 fL [facility] Monocytes (Bld) [#/Vol] 0.56 10*3/uL <0.87 k/uL [facility] Monocytes/100 WBC (Bld) 8.6 % [facility] Neutrophils (Bld) [#/Vol] 4.67 10*3/uL 1.45 - 7.50 k/uL [facility] Neutrophils/100 WBC (Bld) 71.3 % [facility] Nucleated RBC (Bld) [#/Vol] <0.01 k/uL [facility] Nucleated RBC/100 WBC (Bld) [Ratio] 0.0 /100 WBC [facility] Platelet mean volume (Bld) [Entitic vol] 9.3 fL 9.0 - 12.7 fL [facility] Platelets (Bld) [#/Vol] 362 10*3/uL 150 - 400 k/uL [facility] RBC (Bld) [#/Vol] 3.28 10*6/uL Low 4.20 - 6.0 0 m/uL [facility] WBC (Bld) [#/Vol] 6.54 10*3/uL 3.70 - 11.00 k/uL [facility] Comprehensive metabolic 2000 panelon 12-14-2022 Albumin [Mass/Vol] 3.8 g/dL Low 3.9 - 4.9 g/dL [facility] ALP [Catalytic activity/Vol] 138 U/L High 38 - 113 U/L [facility] ALT [Catalytic activity/Vol] 25 U/L 10 - 54 U/L [facility] Anion gap [Moles/Vol] 8 mmol/L Low 9 - 18 mmol/L [facility] AST [Catalytic activity/Vol] 22 U/L 14 - 40 U/L [facility] Bilirubin [Mass/Vol] 0.9 mg/dL 0.2 - 1 .3 mg/dL [facility] Calcium [Mass/Vol] 10.5 mg/dL High 8.5 - 10. 2 mg/dL [facility] Chloride [Moles/Vol] 104 mmol/L 97 - 10 5 mmol/L [facility] CO2 [Moles/Vol] 24 mmol/L 22 - 30 mmol/L [facility] Creatinine [Mass/Vol] 0.85 mg/dL 0.73 - 1.22 mg/dL [facility] Estimated Glomerular Filtration Rate 93 mL/min/1.73m >=60 mL/min/1.73 m [facility] Glucose [Mass/Vol] 158 mg/dL High 74 - 99 mg/dL [facility] Potassium [Moles/Vol] 4.1 mmol/L 3.7 - 5.1 mmol/L [facility] Protein [Mass/Vol] 7.0 g/dL 6.3 - 8.0 g/dL [facility] Sodium [Moles/Vol] 136 mmol/L 136 - 144 mmol/L [facility] Urea nitrogen [Mass/Vol] 16 mg/dL 9 - 24 mg/dL [facility] CBC W Auto Differential pane l (Bld)on 11-30-2022 Basophils (Bld) [#/Vol] 0.03 10*3/uL <0.11 k/uL [facility] Basophils/100 WBC (Bld) 0.5 % [facility] Differential cell count method Nom (Bld) Auto [facility] Eosinophils (Bld) [#/Vol] <0.46 k/uL [facility] Eosinophils/100 WBC (Bld) 0.3 % [facility] Erythrocyte distribution width (RBC) [Ratio] 14.1 % 11.5 - 15.0 % [facility] Hematocrit (Bld) [Volume fraction] 25.2 % Low 39.0 - 51.0 % [facility] Hemoglobin (Bld) [Mass/Vol] 8.2 g/dL Low 13.0 - 17.0 g/dL [facility] Immature granulocytes (Bld) [#/Vol] 0.07 10*3/uL <0.10 k/uL [facility] Immature granulocytes/100 WBC (Bld) 1.2 % [facility] Lymphocytes (Bld) [#/Vol] 1.86 10*3/uL 1.00 - 4.00 k/uL [facility] Lymphocytes/100 WBC (Bld) 30.9 % [facility] MCH (RBC) [Entitic mass] 31.4 pg 26.0 - 34.0 pg [facility] MCHC (RBC) [Mass/Vol] 32.5 g/dL 30.5 - 36.0 g/dL [facility] MCV (RBC) [Entitic vol] 96.6 fL 80.0 - 100.0 fL [facility] Monocytes (Bld) [#/Vol] 0.26 10*3/uL <0.87 k/uL [facility] Monocytes/100 WBC (Bld) 4.3 % [facility] Neutrophils (Bld) [#/Vol] 3.78 10*3/uL 1.45 - 7.50 k/uL [facility] Neutrophils/100 WBC (Bld) 62.8 % [facility] Nucleated RBC (Bld) [#/Vol] <0.01 k/uL [facility] Nucleated RBC/100 WBC (Bld) [Ratio] 0.0 /100 WBC [facility] Platelet mean volume (Bld) [Entitic vol] 10.0 fL 9.0 - 12.7 fL [facility] Platelets (Bld) [#/Vol] 217 10*3/uL 150 - 400 k/uL [facility] RBC (Bld) [#/Vol] 2.61 10*6/uL Low 4.20 - 6.0 0 m/uL [facility] WBC (Bld) [#/Vol] 6.02 10*3/uL 3.70 - 11.00 k/uL [facility] Comprehensive metabolic 2000 panelon 11-30-2022 Albumin [Mass/Vol] 3.3 g/dL Low 3.9 - 4.9 g/dL [facility] ALP [Catalytic activity/Vol] 121 U/L High 38 - 113 U/L [facility] ALT [Catalytic activity/Vol] 17 U/L 10 - 54 U/L [facility] Anion gap [Moles/Vol] 6 mmol/L Low 9 - 18 mmol/L [facility] AST [Catalytic activity/Vol] 24 U/L 14 - 40 U/L [facility] Bilirubin [Mass/Vol] 1.0 mg/dL 0.2 - 1 .3 mg/dL [facility] Calcium [Mass/Vol] 10.6 mg/dL High 8.5 - 10. 2 mg/dL [facility] Chloride [Moles/Vol] 103 mmol/L 97 - 10 5 mmol/L [facility] CO2 [Moles/Vol] 25 mmol/L 22 - 30 mmol/L [facility] Creatinine [Mass/Vol] 0.80 mg/dL 0.73 - 1.22 mg/dL [facility] Estimated Glomerular Filtration Rate 95 mL/min/1.73m >=60 mL/min/1.73 m [facility] Glucose [Mass/Vol] 273 mg/dL High 74 - 99 mg/dL [facility] Potassium [Moles/Vol] 4.0 mmol/L 3.7 - 5.1 mmol/L [facility] Protein [Mass/Vol] 6.8 g/dL 6.3 - 8.0 g/dL [facility] Sodium [Moles/Vol] 134 mmol/L Low 136 - 144 mmol/L [facility] Urea nitrogen [Mass/Vol] 15 mg/dL 9 - 24 mg/dL [facility] CBC W Auto Differential pane l (Bld)on 11-23-2022 Basophils (Bld) [#/Vol] 0.03 10*3/uL <0.11 k/uL [facility] Basophils/100 WBC (Bld) 0.3 % [facility] Differential cell count method Nom (Bld) Auto [facility] Eosinophils (Bld) [#/Vol] 0.05 10*3/uL <0.46 k/uL [facility] Eosinophils/100 WBC (Bld) 0.5 % [facility] Erythrocyte distribution width (RBC) [Ratio] 13.9 % 11.5 - 15.0 % [facility] Hematocrit (Bld) [Volume fraction] 32.6 % Low 39.0 - 51.0 % [facility] Hemoglobin (Bld) [Mass/Vol] 10.7 g/dL Low 13.0 - 17.0 g/dL [facility] Immature granulocytes (Bld) [#/Vol] 0.04 10*3/uL <0.10 k/uL [facility] Immature granulocytes/100 WBC (Bld) 0.4 % [facility] Lymphocytes (Bld) [#/Vol] 1.57 10*3/uL 1.00 - 4.00 k/uL [facility] Lymphocytes/100 WBC (Bld) 14.5 % [facility] MCH (RBC) [Entitic mass] 31.7 pg 26.0 - 34.0 pg [facility] MCHC (RBC) [Mass/Vol] 32.8 g/dL 30.5 - 36.0 g/dL [facility] MCV (RBC) [Entitic vol] 96.4 fL 80.0 - 100.0 fL [facility] Monocytes (Bld) [#/Vol] 0.77 10*3/uL <0.87 k/uL [facility] Monocytes/100 WBC (Bld) 7.1 % [facility] Neutrophils (Bld) [#/Vol] 8.35 10*3/uL High 1.45 - 7.50 k/uL [facility] Neutrophils/100 WBC (Bld) 77.2 % [facility] Nucleated RBC (Bld) [#/Vol] <0.01 k/uL [facility] Nucleated RBC/100 WBC (Bld) [Ratio] 0.0 /100 WBC [facility] Platelet mean volume (Bld) [Entitic vol] 10.9 fL 9.0 - 12.7 fL [facility] Platelets (Bld) [#/Vol] 269 10*3/uL 150 - 400 k/uL [facility] RBC (Bld) [#/Vol] 3.38 10*6/uL Low 4.20 - 6.0 0 m/uL [facility] WBC (Bld) [#/Vol] 10.81 10*3/uL 3.70 - 11.00 k/uL [facility] Comprehensive metabolic 2000 panelon 11-23-2022 Albumin [Mass/Vol] 3.5 g/dL Low 3.9 - 4.9 g/dL [facility] ALP [Catalytic activity/Vol] 136 U/L High 38 - 113 U/L [facility] ALT [Catalytic activity/Vol] 13 U/L 10 - 54 U/L [facility] Anion gap [Moles/Vol] 9 mmol/L 9 - 18 mmol/L [facility] AST [Catalytic activity/Vol] 13 U/L Low 14 - 40 U/L [facility] Bilirubin [Mass/Vol] 1.0 mg/dL 0.2 - 1 .3 mg/dL [facility] Calcium [Mass/Vol] 10.4 mg/dL High 8.5 - 10. 2 mg/dL [facility] Chloride [Moles/Vol] 101 mmol/L 97 - 10 5 mmol/L [facility] CO2 [Moles/Vol] 23 mmol/L 22 - 30 mmol/L [facility] Creatinine [Mass/Vol] 0.80 mg/dL 0.73 - 1.22 mg/dL [facility] Estimated Glomerular Filtration Rate 95 mL/min/1.73m >=60 mL/min/1.73 m [facility] Glucose [Mass/Vol] 251 mg/dL High 74 - 99 mg/dL [facility] Potassium [Moles/Vol] 4.1 mmol/L 3.7 - 5.1 mmol/L [facility] Protein [Mass/Vol] 7.1 g/dL 6.3 - 8.0 g/dL [facility] Sodium [Moles/Vol] 133 mmol/L Low 136 - 144 mmol/L [facility] Urea nitrogen [Mass/Vol] 15 mg/dL 9 - 24 mg/dL [facility] CBC W Auto Differential pane l (Bld)on 11-10-2022 Basophils (Bld) [#/Vol] 0.03 10*3/uL <0.11 k/uL [facility] Basophils/100 WBC (Bld) 0.4 % [facility] Differential cell count method Nom (Bld) Auto [facility] Eosinophils (Bld) [#/Vol] 0.04 10*3/uL <0.46 k/uL [facility] Eosinophils/100 WBC (Bld) 0.5 % [facility] Erythrocyte distribution width (RBC) [Ratio] 14.2 % 11.5 - 15.0 % [facility] Hematocrit (Bld) [Volume fraction] 37.4 % Low 39.0 - 51.0 % [facility] Hemoglobin (Bld) [Mass/Vol] 12.2 g/dL Low 13.0 - 17.0 g/dL [facility] Immature granulocytes (Bld) [#/Vol] 0.04 10*3/uL <0.10 k/uL [facility] Immature granulocytes/100 WBC (Bld) 0.5 % [facility] Lymphocytes (Bld) [#/Vol] 1.39 10*3/uL 1.00 - 4.00 k/uL [facility] Lymphocytes/100 WBC (Bld) 17.4 % [facility] MCH (RBC) [Entitic mass] 31.6 pg 26.0 - 34.0 pg [facility] MCHC (RBC) [Mass/Vol] 32.6 g/dL 30.5 - 36.0 g/dL [facility] MCV (RBC) [Entitic vol] 96.9 fL 80.0 - 100.0 fL [facility] Monocytes (Bld) [#/Vol] 0.53 10*3/uL <0.87 k/uL [facility] Monocytes/100 WBC (Bld) 6.6 % [facility] Neutrophils (Bld) [#/Vol] 5.97 10*3/uL 1.45 - 7.50 k/uL [facility] Neutrophils/100 WBC (Bld) 74.6 % [facility] Nucleated RBC (Bld) [#/Vol] <0.01 k/uL [facility] Nucleated RBC/100 WBC (Bld) [Ratio] 0.0 /100 WBC [facility] Platelet mean volume (Bld) [Entitic vol] 11.3 fL 9.0 - 12.7 fL [facility] Platelets (Bld) [#/Vol] 254 10*3/uL 150 - 400 k/uL [facility] RBC (Bld) [#/Vol] 3.86 10*6/uL Low 4.20 - 6.0 0 m/uL [facility] WBC (Bld) [#/Vol] 8.00 10*3/uL 3.70 - 11.00 k/uL [facility] Comprehensive metabolic 2000 panelon 11-10-2022 Albumin [Mass/Vol] 4.0 g/dL 3.9 - 4.9 g/dL [facility] ALP [Catalytic activity/Vol] 180 U/L High 38 - 113 U/L [facility] ALT [Catalytic activity/Vol] 26 U/L 10 - 54 U/L [facility] Anion gap [Moles/Vol] 9 mmol/L 9 - 18 mmol/L [facility] AST [Catalytic activity/Vol] 21 U/L 14 - 40 U/L [facility] Bilirubin [Mass/Vol] 0.9 mg/dL 0.2 - 1 .3 mg/dL [facility] Calcium [Mass/Vol] 11.0 mg/dL High 8.5 - 10. 2 mg/dL [facility] Chloride [Moles/Vol] 100 mmol/L 97 - 10 5 mmol/L [facility] CO2 [Moles/Vol] 23 mmol/L 22 - 30 mmol/L [facility] Creatinine [Mass/Vol] 0.77 mg/dL 0.73 - 1.22 mg/dL [facility] Estimated Glomerular Filtration Rate 96 mL/min/1.73m >=60 mL/min/1.73 m [facility] Glucose [Mass/Vol] 782 mg/dL High 74 - 99 mg/dL [facility] Potassium [Moles/Vol] 4.7 mmol/L 3.7 - 5.1 mmol/L [facility] Protein [Mass/Vol] 7.4 g/dL 6.3 - 8.0 g/dL [facility] Sodium [Moles/Vol] 132 mmol/L Low 136 - 144 mmol/L [facility] Urea nitrogen [Mass/Vol] 16 mg/dL 9 - 24 mg/dL [facility] CT Abdomen and Pelvis W cont rast [...] any questions regarding this interpretation, please call [phone]. If you are unable to reach us at the number above, please feel free to contact [facility] at [phone]. DIVISION OF RADIOLOGY * * *Final Report* * * DATE OF EXAM: Nov 03 2022 10:35AM [facility] 0530 - CT ABD/PEL W IVCON / [...] enlarged retroperitoneal and central mesenteric lymph nodes. Bag Filler measurements are detailed as follows on series [...] chest CT performed will be reported separately. 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 DIVISION OF RADIOLOGY Provider, Helga Araceli [facility] - 11/03/2022 * * *Final Report* * * DATE OF EXAM: Nov 03 2022 10:35AM [facility] 0530 - CT ABD/PEL W IVCON / [...] enlarged retroperitoneal and central mesenteric lymph nodes. Bag Filler measurements are detailed as follows on series [...] chest CT performed will be reported separately. 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 IMPRESSION IMPRESSION: [...] any questions regarding this interpretation, please call [phone]. If you are unable to reach us at the number above, please feel free to contact [facility] at [phone]. [facility] CT Chest W contrast [place] IMPRESSION: [...] Nov 03 2022 12:14P Dictated by: ALDA SNACHEZ MD This examination was interpreted and the report reviewed and electronically signed by: ALDA SANCHEZ MD on Nov 03 2022 1:02PM EST Thank you for allowing us to participate in the care of your patient. Should there be any questions regarding this interpretation, please call [phone]. If you are unable to reach us at the number above, please feel free to contact [facility] at [phone]. DIVISION OF RADIOLOGY * * *Final Report* * * DATE OF EXAM: Nov 03 2022 10:35AM [facility] 0539 - CT CHEST W IVCON / [...] for findings related to the upper abdomen. 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 DIVISION OF RADIOLOGY Provider, [facility] - 11/03/2022 * * *Final Report* * * DATE OF EXAM: Nov 03 2022 10:35AM [facility] 0539 - CT CHEST W IVCON / [...] for findings related to the upper abdomen. 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 IMPRESSION IMPRESSION: [...] any questions regarding this interpretation, please call [phone]. If you are unable to reach us at the number above, please feel free to contact [facility] at [phone]. [facility] CT Chest W contrast IVOrdere d By: [facility] Provider on 11-03-2022 [facility] No Panel Informationon 11-03 Radiology Study observation (narrative) [facility] CBC W Auto Differential pane l (Bld)on 09-29-2022 Basophils (Bld) [#/Vol] <0.11 k/uL [facility] Basophils/100 WBC (Bld) 0.2 % [facility] Differential cell count method Nom (Bld) Auto [facility] Eosinophils (Bld) [#/Vol] 0.06 10*3/uL <0.46 k/uL [facility] Eosinophils/100 WBC (Bld) 0.7 % [facility] Erythrocyte distribution width (RBC) [Ratio] 14.3 % 11.5 - 15.0 % [facility] Hematocrit (Bld) [Volume fraction] 35.6 % Low 39.0 - 51.0 % [facility] Hemoglobin (Bld) [Mass/Vol] 11.3 g/dL Low 13.0 - 17.0 g/dL [facility] Immature granulocytes (Bld) [#/Vol] <0.10 k/uL [facility] Immature granulocytes/100 WBC (Bld) 0.2 % [facility] Lymphocytes (Bld) [#/Vol] 1.48 10*3/uL 1.00 - 4.00 k/uL [facility] Lymphocytes/100 WBC (Bld) 17.4 % [facility] MCH (RBC) [Entitic mass] 31.1 pg 26.0 - 34.0 pg [facility] MCHC (RBC) [Mass/Vol] 31.7 g/dL 30.5 - 36.0 g/dL [facility] MCV (RBC) [Entitic vol] 98.1 fL 80.0 - 100.0 fL [facility] Monocytes (Bld) [#/Vol] 0.68 10*3/uL <0.87 k/uL [facility] Monocytes/100 WBC (Bld) 8.0 % [facility] Neutrophils (Bld) [#/Vol] 6.24 10*3/uL 1.45 - 7.50 k/uL [facility] Neutrophils/100 WBC (Bld) 73.5 % [facility] Nucleated RBC (Bld) [#/Vol] <0.01 k/uL [facility] Nucleated RBC/100 WBC (Bld) [Ratio] 0.0 /100 WBC [facility] Platelet mean volume (Bld) [Entitic vol] 10.6 fL 9.0 - 12.7 fL [facility] Platelets (Bld) [#/Vol] 260 10*3/uL 150 - 400 k/uL [facility] RBC (Bld) [#/Vol] 3.63 10*6/uL Low 4.20 - 6.0 0 m/uL [facility] WBC (Bld) [#/Vol] 8.50 10*3/uL 3.70 - 11.00 k/uL [facility] Comprehensive metabolic 2000 panelon 09-29-2022 Albumin [Mass/Vol] 4.0 g/dL 3.9 - 4.9 g/dL [facility] ALP [Catalytic activity/Vol] 170 U/L High 38 - 113 U/L [facility] ALT [Catalytic activity/Vol] 23 U/L 10 - 54 U/L [facility] Anion gap [Moles/Vol] 9 mmol/L 9 - 18 mmol/L [facility] AST [Catalytic activity/Vol] 18 U/L 14 - 40 U/L [facility] Bilirubin [Mass/Vol] 1.1 mg/dL 0.2 - 1 .3 mg/dL [facility] Calcium [Mass/Vol] 10.4 mg/dL High 8.5 - 10. 2 mg/dL [facility] Chloride [Moles/Vol] 100 mmol/L 97 - 10 5 mmol/L [facility] CO2 [Moles/Vol] 25 mmol/L 22 - 30 mmol/L [facility] Creatinine [Mass/Vol] 0.75 mg/dL 0.73 - 1.22 mg/dL [facility] Estimated Glomerular Filtration Rate 96 mL/min/1.73m >=60 mL/min/1.73 m [facility] Glucose [Mass/Vol] 377 mg/dL High 74 - 99 mg/dL [facility] Potassium [Moles/Vol] 5.0 mmol/L 3.7 - 5.1 mmol/L [facility] Protein [Mass/Vol] 7.1 g/dL 6.3 - 8.0 g/dL [facility] Sodium [Moles/Vol] 134 mmol/L Low 136 - 144 mmol/L [facility] Urea nitrogen [Mass/Vol] 19 mg/dL 9 - 24 mg/dL [facility] CBC W Auto Differential pane l (Bld)on 08-02-2022 Basophils (Bld) [#/Vol] <0.11 k/uL [facility] Basophils/100 WBC (Bld) 0.2 % [facility] Differential cell count method Nom (Bld) Auto [facility] Eosinophils (Bld) [#/Vol] 0.07 10*3/uL <0.46 k/uL [facility] Eosinophils/100 WBC (Bld) 0.7 % [facility] Erythrocyte distribution width (RBC) [Ratio] 15.3 % High 11.5 - 15.0 % [facility] Hematocrit (Bld) [Volume fraction] 35.3 % Low 39.0 - 51.0 % [facility] Hemoglobin (Bld) [Mass/Vol] 11.5 g/dL Low 13.0 - 17.0 g/dL [facility] Immature granulocytes (Bld) [#/Vol] 0.03 10*3/uL <0.10 k/uL [facility] Immature granulocytes/100 WBC (Bld) 0.3 % [facility] Lymphocytes (Bld) [#/Vol] 1.91 10*3/uL 1.00 - 4.00 k/uL [facility] Lymphocytes/100 WBC (Bld) 20.2 % [facility] MCH (RBC) [Entitic mass] 31.3 pg 26.0 - 34.0 pg [facility] MCHC (RBC) [Mass/Vol] 32.6 g/dL 30.5 - 36.0 g/dL [facility] MCV (RBC) [Entitic vol] 96.2 fL 80.0 - 100.0 fL [facility] Monocytes (Bld) [#/Vol] 0.81 10*3/uL <0.87 k/uL [facility] Monocytes/100 WBC (Bld) 8.6 % [facility] Neutrophils (Bld) [#/Vol] 6.60 10*3/uL 1.45 - 7.50 k/uL [facility] Neutrophils/100 WBC (Bld) 70.0 % [facility] Nucleated RBC (Bld) [#/Vol] <0.01 k/uL [facility] Nucleated RBC/100 WBC (Bld) [Ratio] 0.0 /100 WBC [facility] Platelet mean volume (Bld) [Entitic vol] 10.2 fL 9.0 - 12.7 fL [facility] Platelets (Bld) [#/Vol] 257 10*3/uL 150 - 400 k/uL [facility] RBC (Bld) [#/Vol] 3.67 10*6/uL Low 4.20 - 6.0 0 m/uL [facility] WBC (Bld) [#/Vol] 9.44 10*3/uL 3.70 - 11.00 k/uL [facility] Comprehensive metabolic 2000 panelon 08-02-2022 Albumin [Mass/Vol] 4.2 g/dL 3.9 - 4.9 g/dL [facility] ALP [Catalytic activity/Vol] 140 U/L High 38 - 113 U/L [facility] ALT [Catalytic activity/Vol] 17 U/L 10 - 54 U/L [facility] Anion gap [Moles/Vol] 8 mmol/L Low 9 - 18 mmol/L [facility] AST [Catalytic activity/Vol] 20 U/L 14 - 40 U/L [facility] Bilirubin [Mass/Vol] 1.0 mg/dL 0.2 - 1 .3 mg/dL [facility] Calcium [Mass/Vol] 10.6 mg/dL High 8.5 - 10. 2 mg/dL [facility] Chloride [Moles/Vol] 105 mmol/L 97 - 10 5 mmol/L [facility] CO2 [Moles/Vol] 24 mmol/L 22 - 30 mmol/L [facility] Creatinine [Mass/Vol] 0.81 mg/dL 0.73 - 1.22 mg/dL [facility] Estimated Glomerular Filtration Rate 94 mL/min/1.73m >=60 mL/min/1.73 m [facility] Glucose [Mass/Vol] 151 mg/dL High 74 - 99 mg/dL [facility] Potassium [Moles/Vol] 4.7 mmol/L 3.7 - 5.1 mmol/L [facility] Protein [Mass/Vol] 7.3 g/dL 6.3 - 8.0 g/dL [facility] Sodium [Moles/Vol] 137 mmol/L 136 - 144 mmol/L [facility] Urea nitrogen [Mass/Vol] 18 mg/dL 9 - 24 mg/dL [facility] CT Abdomen and Pelvis W cont rast [...] any questions regarding this interpretation, please call [phone]. If you are unable to reach us at the number above, please feel free to contact [facility] at [phone]. DIVISION OF RADIOLOGY * * *Final Report* * * DATE OF EXAM: Jul 27 2022 11:05AM [facility] 0530 - CT ABD/PEL W IVCON / [...] CT scan report for the abdomen findings. 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 DIVISION OF RADIOLOGY Provider, [facility] - 07/27/2022 * * *Final Report* * * DATE OF EXAM: Jul 27 2022 11:05AM [facility] 0530 - CT ABD/PEL W IVCON / [...] CT scan report for the abdomen findings. 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 IMPRESSION IMPRESSION: [...] any questions regarding this interpretation, please call [phone]. If you are unable to reach us at the number above, please feel free to contact [facility] at [phone]. [facility] CT Chest W contrast Kodi IMPRESSION: [...] any questions regarding this interpretation, please call [phone]. If you are unable to reach us at the number above, please feel free to contact [facility] at [phone]. DIVISION OF RADIOLOGY * * *Final Report* * * DATE OF EXAM: Jul 27 2022 11:05AM [facility] 0539 - CT CHEST W IVCON / [...] CT scan report for the abdomen findings. 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 DIVISION OF RADIOLOGY [facility] * * *Final Report* * * DATE OF EXAM: Jul 27 2022 11:05AM [facility] 0539 - CT CHEST W IVCON / [...] CT scan report for the abdomen findings. 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 IMPRESSION IMPRESSION: [...] any questions regarding this interpretation, please call [phone]. If you are unable to reach us at the number above, please feel free to contact [facility] at [phone]. [facility] CT Chest W contrast IVOrdere d By: Ccf Provider on 07-27-2022 [facility] No Panel Informationon 07-27 Radiology Study observation (narrative) [facility] CBC W Auto Differential pane l (Bld)on 06-29-2022 Basophils (Bld) [#/Vol] 0.03 10*3/uL <0.11 k/uL [facility] Basophils/100 WBC (Bld) 0.3 % [facility] Differential cell count method Nom (Bld) Auto [facility] Eosinophils (Bld) [#/Vol] 0.09 10*3/uL <0.46 k/uL [facility] Eosinophils/100 WBC (Bld) 0.9 % [facility] Erythrocyte distribution width (RBC) [Ratio] 15.3 % High 11.5 - 15.0 % [facility] Hematocrit (Bld) [Volume fraction] 36.8 % Low 39.0 - 51.0 % [facility] Hemoglobin (Bld) [Mass/Vol] 11.7 g/dL Low 13.0 - 17.0 g/dL [facility] Immature granulocytes (Bld) [#/Vol] 0.03 10*3/uL <0.10 k/uL [facility] Immature granulocytes/100 WBC (Bld) 0.3 % [facility] Lymphocytes (Bld) [#/Vol] 2.15 10*3/uL 1.00 - 4.00 k/uL [facility] Lymphocytes/100 WBC (Bld) 20.9 % [facility] MCH (RBC) [Entitic mass] 30.5 pg 26.0 - 34.0 pg [facility] MCHC (RBC) [Mass/Vol] 31.8 g/dL 30.5 - 36.0 g/dL [facility] MCV (RBC) [Entitic vol] 96.1 fL 80.0 - 100.0 fL [facility] Monocytes (Bld) [#/Vol] 1.05 10*3/uL High <0.87 k/uL [facility] Monocytes/100 WBC (Bld) 10.2 % [facility] Neutrophils (Bld) [#/Vol] 6.95 10*3/uL 1.45 - 7.50 k/uL [facility] Neutrophils/100 WBC (Bld) 67.4 % [facility] Nucleated RBC (Bld) [#/Vol] <0.01 k/uL [facility] Nucleated RBC/100 WBC (Bld) [Ratio] 0.0 /100 WBC [facility] Platelet mean volume (Bld) [Entitic vol] 9.8 fL 9.0 - 12.7 fL [facility] Platelets (Bld) [#/Vol] 288 10*3/uL 150 - 400 k/uL [facility] RBC (Bld) [#/Vol] 3.83 10*6/uL Low 4.20 - 6.0 0 m/uL [facility] WBC (Bld) [#/Vol] 10.30 10*3/uL 3.70 - 11.00 k/uL [facility] Comprehensive metabolic 2000 panelon 06-29-2022 Albumin [Mass/Vol] 4.2 g/dL 3.9 - 4.9 g/dL [facility] ALP [Catalytic activity/Vol] 146 U/L High 38 - 113 U/L [facility] ALT [Catalytic activity/Vol] 21 U/L 10 - 54 U/L [facility] Anion gap [Moles/Vol] 8 mmol/L Low 9 - 18 mmol/L [facility] AST [Catalytic activity/Vol] 20 U/L 14 - 40 U/L [facility] Bilirubin [Mass/Vol] 0.9 mg/dL 0.2 - 1 .3 mg/dL [facility] Calcium [Mass/Vol] 10.6 mg/dL High 8.5 - 10. 2 mg/dL [facility] Chloride [Moles/Vol] 100 mmol/L 97 - 10 5 mmol/L [facility] CO2 [Moles/Vol] 25 mmol/L 22 - 30 mmol/L [facility] Creatinine [Mass/Vol] 0.83 mg/dL 0.73 - 1.22 mg/dL [facility] Estimated Glomerular Filtration Rate 94 mL/min/1.73m >=60 mL/min/1.73 m [facility] Glucose [Mass/Vol] 189 mg/dL High 74 - 99 mg/dL [facility] Potassium [Moles/Vol] 4.7 mmol/L 3.7 - 5.1 mmol/L [facility] Protein [Mass/Vol] 7.6 g/dL 6.3 - 8.0 g/dL [facility] Sodium [Moles/Vol] 133 mmol/L Low 136 - 144 mmol/L [facility] Urea nitrogen [Mass/Vol] 21 mg/dL 9 - 24 mg/dL [facility] CBC W Auto Differential pane l (Bld)on 06-01-2022 Basophils (Bld) [#/Vol] 0.05 10*3/uL <0.11 k/uL [facility] Basophils/100 WBC (Bld) 0.6 % [facility] Differential cell count method Nom (Bld) Auto [facility] Eosinophils (Bld) [#/Vol] 0.11 10*3/uL <0.46 k/uL [facility] Eosinophils/100 WBC (Bld) 1.3 % [facility] Erythrocyte distribution width (RBC) [Ratio] 15.9 % High 11.5 - 15.0 % [facility] Hematocrit (Bld) [Volume fraction] 34.6 % Low 39.0 - 51.0 % [facility] Hemoglobin (Bld) [Mass/Vol] 11.0 g/dL Low 13.0 - 17.0 g/dL [facility] Immature granulocytes (Bld) [#/Vol] 0.03 10*3/uL <0.10 k/uL [facility] Immature granulocytes/100 WBC (Bld) 0.4 % [facility] Lymphocytes (Bld) [#/Vol] 1.92 10*3/uL 1.00 - 4.00 k/uL [facility] Lymphocytes/100 WBC (Bld) 22.6 % [facility] MCH (RBC) [Entitic mass] 31.7 pg 26.0 - 34.0 pg [facility] MCHC (RBC) [Mass/Vol] 31.8 g/dL 30.5 - 36.0 g/dL [facility] MCV (RBC) [Entitic vol] 99.7 fL 80.0 - 100.0 fL [facility] Monocytes (Bld) [#/Vol] 0.95 10*3/uL High <0.87 k/uL [facility] Monocytes/100 WBC (Bld) 11.2 % [facility] Neutrophils (Bld) [#/Vol] 5.43 10*3/uL 1.45 - 7.50 k/uL [facility] Neutrophils/100 WBC (Bld) 63.9 % [facility] Nucleated RBC (Bld) [#/Vol] <0.01 k/uL [facility] Nucleated RBC/100 WBC (Bld) [Ratio] 0.0 /100 WBC [facility] Platelet mean volume (Bld) [Entitic vol] 9.9 fL 9.0 - 12.7 fL [facility] Platelets (Bld) [#/Vol] 354 10*3/uL 150 - 400 k/uL [facility] RBC (Bld) [#/Vol] 3.47 10*6/uL Low 4.20 - 6.0 0 m/uL [facility] WBC (Bld) [#/Vol] 8.49 10*3/uL 3.70 - 11.00 k/uL [facility] Comprehensive metabolic 2000 panelon 06-01-2022 Albumin [Mass/Vol] 4.3 g/dL 3.9 - 4.9 g/dL [facility] ALP [Catalytic activity/Vol] 138 U/L High 38 - 113 U/L [facility] ALT [Catalytic activity/Vol] 20 U/L 10 - 54 U/L [facility] Anion gap [Moles/Vol] 7 mmol/L Low 9 - 18 mmol/L [facility] AST [Catalytic activity/Vol] 19 U/L 14 - 40 U/L [facility] Bilirubin [Mass/Vol] 0.5 mg/dL 0.2 - 1 .3 mg/dL [facility] Calcium [Mass/Vol] 10.1 mg/dL 8.5 - 10. 2 mg/dL [facility] Chloride [Moles/Vol] 103 mmol/L 97 - 10 5 mmol/L [facility] CO2 [Moles/Vol] 25 mmol/L 22 - 30 mmol/L [facility] Creatinine [Mass/Vol] 0.76 mg/dL 0.73 - 1.22 mg/dL [facility] Estimated Glomerular Filtration Rate 96 mL/min/1.73m >=60 mL/min/1.73 m [facility] Glucose [Mass/Vol] 179 mg/dL High 74 - 99 mg/dL [facility] Potassium [Moles/Vol] 4.9 mmol/L 3.7 - 5.1 mmol/L [facility] Protein [Mass/Vol] 6.9 g/dL 6.3 - 8.0 g/dL [facility] Sodium [Moles/Vol] 135 mmol/L Low 136 - 144 mmol/L [facility] Urea nitrogen [Mass/Vol] 20 mg/dL 9 - 24 mg/dL [facility] CT Abdomen and Pelvis W cont rast [...] any questions regarding this interpretation, please call [phone]. If you are unable to reach us at the number above, please feel free to contact [facility] at [phone]. DIVISION OF RADIOLOGY * * *Final Report* [...] lobar consolidation or pleural effusion is seen. 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 DIVISION OF RADIOLOGY Provider, [facility] - 05/25/2022 * * *Final Report* * * DATE OF EXAM: May 25 2022 11:28AM [facility] 0530 - CT ABD/PEL W IVCON / [...] lobar consolidation or pleural effusion is seen. 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 IMPRESSION IMPRESSION: [...] any questions regarding this interpretation, please call [phone]. If you are unable to reach us at the number above, please feel free to contact [facility] at [phone]. [facility] CT Chest W contrast [place]odi IMPRESSION: [...] any questions regarding this interpretation, please call [phone]. If you are unable to reach us at the number above, please feel free to contact [facility] at [phone]. DIVISION OF RADIOLOGY * * *Final Report* * * DATE OF EXAM: May 25 2022 11:28AM [facility] 0539 - CT CHEST W IVCON / [...] was performed concurrently and is reported separately. 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 DIVISION OF RADIOLOGY Provider, [facility] - 05/25/2022 * * *Final Report* * * DATE OF EXAM: May 25 2022 11:28AM [facility] 0539 - CT CHEST W IVCON / [...] was performed concurrently and is reported separately. 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 IMPRESSION IMPRESSION: [...] any questions regarding this interpretation, please call [phone]. If you are unable to reach us at the number above, please feel free to contact [facility] at [phone]. [facility] CT Chest W contrast IVOrdere d By: Ccf Provider on 05-25-2022 [facility] No Panel Informationon 05-25 Radiology Study observation (narrative) [facility] CBC W Auto Differential pane l (Bld)on 05-11-2022 Basophils (Bld) [#/Vol] <0.11 k/uL [facility] Basophils/100 WBC (Bld) 0.3 % [facility] Differential cell count method Nom (Bld) Auto [facility] Eosinophils (Bld) [#/Vol] 0.10 10*3/uL <0.46 k/uL [facility] Eosinophils/100 WBC (Bld) 1.6 % [facility] Erythrocyte distribution width (RBC) [Ratio] 16.8 % High 11.5 - 15.0 % [facility] Hematocrit (Bld) [Volume fraction] 30.7 % Low 39.0 - 51.0 % [facility] Hemoglobin (Bld) [Mass/Vol] 9.5 g/dL Low 13.0 - 17.0 g/dL [facility] Immature granulocytes (Bld) [#/Vol] 0.03 10*3/uL <0.10 k/uL [facility] Immature granulocytes/100 WBC (Bld) 0.5 % [facility] Lymphocytes (Bld) [#/Vol] 1.49 10*3/uL 1.00 - 4.00 k/uL [facility] Lymphocytes/100 WBC (Bld) 24.0 % [facility] MCH (RBC) [Entitic mass] 31.6 pg 26.0 - 34.0 pg [facility] MCHC (RBC) [Mass/Vol] 30.9 g/dL 30.5 - 36.0 g/dL [facility] MCV (RBC) [Entitic vol] 102.0 fL High 80.0 - 100.0 fL [facility] Monocytes (Bld) [#/Vol] 0.79 10*3/uL <0.87 k/uL [facility] Monocytes/100 WBC (Bld) 12.7 % [facility] Neutrophils (Bld) [#/Vol] 3.79 10*3/uL 1.45 - 7.50 k/uL [facility] Neutrophils/100 WBC (Bld) 60.9 % [facility] Nucleated RBC (Bld) [#/Vol] <0.01 k/uL [facility] Nucleated RBC/100 WBC (Bld) [Ratio] 0.0 /100 WBC [facility] Platelet mean volume (Bld) [Entitic vol] 9.9 fL 9.0 - 12.7 fL [facility] Platelets (Bld) [#/Vol] 347 10*3/uL 150 - 400 k/uL [facility] RBC (Bld) [#/Vol] 3.01 10*6/uL Low 4.20 - 6.0 0 m/uL [facility] WBC (Bld) [#/Vol] 6.22 10*3/uL 3.70 - 11.00 k/uL [facility] Comprehensive metabolic 2000 panelon 05-11-2022 Albumin [Mass/Vol] 3.9 g/dL 3.9 - 4.9 g/dL [facility] ALP [Catalytic activity/Vol] 134 U/L High 38 - 113 U/L [facility] ALT [Catalytic activity/Vol] 20 U/L 10 - 54 U/L [facility] Anion gap [Moles/Vol] 7 mmol/L Low 9 - 18 mmol/L [facility] AST [Catalytic activity/Vol] 19 U/L 14 - 40 U/L [facility] Bilirubin [Mass/Vol] 0.6 mg/dL 0.2 - 1 .3 mg/dL [facility] Calcium [Mass/Vol] 9.8 mg/dL 8.5 - 10. 2 mg/dL [facility] Chloride [Moles/Vol] 105 mmol/L 97 - 10 5 mmol/L [facility] CO2 [Moles/Vol] 24 mmol/L 22 - 30 mmol/L [facility] Creatinine [Mass/Vol] 0.71 mg/dL Low 0.73 - 1.22 mg/dL [facility] Estimated Glomerular Filtration Rate 98 mL/min/1.73m >=60 mL/min/1.73 m [facility] Glucose [Mass/Vol] 240 mg/dL High 74 - 99 mg/dL [facility] Potassium [Moles/Vol] 4.6 mmol/L 3.7 - 5.1 mmol/L [facility] Protein [Mass/Vol] 6.5 g/dL 6.3 - 8.0 g/dL [facility] Sodium [Moles/Vol] 136 mmol/L 136 - 144 mmol/L [facility] Urea nitrogen [Mass/Vol] 17 mg/dL 9 - 24 mg/dL [facility] CBC W Auto Differential pane l (Bld)on 04-26-2022 Basophils (Bld) [#/Vol] 0.05 10*3/uL <0.11 k/uL [facility] Basophils/100 WBC (Bld) 0.8 % [facility] Differential cell count method Nom (Bld) Auto [facility] Eosinophils (Bld) [#/Vol] 0.04 10*3/uL <0.46 k/uL [facility] Eosinophils/100 WBC (Bld) 0.6 % [facility] Erythrocyte distribution width (RBC) [Ratio] 15.9 % High 11.5 - 15.0 % [facility] Hematocrit (Bld) [Volume fraction] 26.9 % Low 39.0 - 51.0 % [facility] Hemoglobin (Bld) [Mass/Vol] 8.5 g/dL Low 13.0 - 17.0 g/dL [facility] Immature granulocytes (Bld) [#/Vol] 0.07 10*3/uL <0.10 k/uL [facility] Immature granulocytes/100 WBC (Bld) 1.1 % [facility] Lymphocytes (Bld) [#/Vol] 1.73 10*3/uL 1.00 - 4.00 k/uL [facility] Lymphocytes/100 WBC (Bld) 28.1 % [facility] MCH (RBC) [Entitic mass] 32.2 pg 26.0 - 34.0 pg [facility] MCHC (RBC) [Mass/Vol] 31.6 g/dL 30.5 - 36.0 g/dL [facility] MCV (RBC) [Entitic vol] 101.9 fL High 80.0 - 100.0 fL [facility] Monocytes (Bld) [#/Vol] 0.28 10*3/uL <0.87 k/uL [facility] Monocytes/100 WBC (Bld) 4.5 % [facility] Neutrophils (Bld) [#/Vol] 3.99 10*3/uL 1.45 - 7.50 k/uL [facility] Neutrophils/100 WBC (Bld) 64.9 % [facility] Nucleated RBC (Bld) [#/Vol] <0.01 k/uL [facility] Nucleated RBC/100 WBC (Bld) [Ratio] 0.0 /100 WBC [facility] Platelet mean volume (Bld) [Entitic vol] 9.4 fL 9.0 - 12.7 fL [facility] Platelets (Bld) [#/Vol] 413 10*3/uL High 150 - 400 k/uL [facility] RBC (Bld) [#/Vol] 2.64 10*6/uL Low 4.20 - 6.0 0 m/uL [facility] WBC (Bld) [#/Vol] 6.16 10*3/uL 3.70 - 11.00 k/uL [facility] Comprehensive metabolic 2000 panelon 04-26-2022 Albumin [Mass/Vol] 4.0 g/dL 3.9 - 4.9 g/dL [facility] ALP [Catalytic activity/Vol] 129 U/L High 38 - 113 U/L [facility] ALT [Catalytic activity/Vol] 31 U/L 10 - 54 U/L [facility] Anion gap [Moles/Vol] 8 mmol/L Low 9 - 18 mmol/L [facility] AST [Catalytic activity/Vol] 29 U/L 14 - 40 U/L [facility] Bilirubin [Mass/Vol] 0.7 mg/dL 0.2 - 1 .3 mg/dL [facility] Calcium [Mass/Vol] 10.4 mg/dL High 8.5 - 10. 2 mg/dL [facility] Chloride [Moles/Vol] 103 mmol/L 97 - 10 5 mmol/L [facility] CO2 [Moles/Vol] 25 mmol/L 22 - 30 mmol/L [facility] Creatinine [Mass/Vol] 0.80 mg/dL 0.73 - 1.22 mg/dL [facility] Estimated Glomerular Filtration Rate 95 mL/min/1.73m >=60 mL/min/1.73 m [facility] Glucose [Mass/Vol] 127 mg/dL High 74 - 99 mg/dL [facility] Potassium [Moles/Vol] 4.5 mmol/L 3.7 - 5.1 mmol/L [facility] Protein [Mass/Vol] 6.8 g/dL 6.3 - 8.0 g/dL [facility] Sodium [Moles/Vol] 136 mmol/L 136 - 144 mmol/L [facility] Urea nitrogen [Mass/Vol] 13 mg/dL 9 - 24 mg/dL [facility] CBC W Auto Differential pane l (Bld)on 04-20-2022 Basophils (Bld) [#/Vol] 0.03 10*3/uL <0.11 k/uL [facility] Basophils/100 WBC (Bld) 0.4 % [facility] Differential cell count method Nom (Bld) Auto [facility] Eosinophils (Bld) [#/Vol] 0.10 10*3/uL <0.46 k/uL [facility] Eosinophils/100 WBC (Bld) 1.2 % [facility] Erythrocyte distribution width (RBC) [Ratio] 16.8 % High 11.5 - 15.0 % [facility] Hematocrit (Bld) [Volume fraction] 29.4 % Low 39.0 - 51.0 % [facility] Hemoglobin (Bld) [Mass/Vol] 9.2 g/dL Low 13.0 - 17.0 g/dL [facility] Immature granulocytes (Bld) [#/Vol] 0.05 10*3/uL <0.10 k/uL [facility] Immature granulocytes/100 WBC (Bld) 0.6 % [facility] Lymphocytes (Bld) [#/Vol] 1.46 10*3/uL 1.00 - 4.00 k/uL [facility] Lymphocytes/100 WBC (Bld) 18.0 % [facility] MCH (RBC) [Entitic mass] 32.5 pg 26.0 - 34.0 pg [facility] MCHC (RBC) [Mass/Vol] 31.3 g/dL 30.5 - 36.0 g/dL [facility] MCV (RBC) [Entitic vol] 103.9 fL High 80.0 - 100.0 fL [facility] Monocytes (Bld) [#/Vol] 0.89 10*3/uL High <0.87 k/uL [facility] Monocytes/100 WBC (Bld) 11.0 % [facility] Neutrophils (Bld) [#/Vol] 5.56 10*3/uL 1.45 - 7.50 k/uL [facility] Neutrophils/100 WBC (Bld) 68.8 % [facility] Nucleated RBC (Bld) [#/Vol] <0.01 k/uL [facility] Nucleated RBC/100 WBC (Bld) [Ratio] 0.0 /100 WBC [facility] Platelet mean volume (Bld) [Entitic vol] 9.5 fL 9.0 - 12.7 fL [facility] Platelets (Bld) [#/Vol] 363 10*3/uL 150 - 400 k/uL [facility] RBC (Bld) [#/Vol] 2.83 10*6/uL Low 4.20 - 6.0 0 m/uL [facility] WBC (Bld) [#/Vol] 8.09 10*3/uL 3.70 - 11.00 k/uL [facility] Comprehensive metabolic 2000 panelon 04-20-2022 Albumin [Mass/Vol] 3.9 g/dL 3.9 - 4.9 g/dL [facility] ALP [Catalytic activity/Vol] 138 U/L High 38 - 113 U/L [facility] ALT [Catalytic activity/Vol] 18 U/L 10 - 54 U/L [facility] Anion gap [Moles/Vol] 8 mmol/L Low 9 - 18 mmol/L [facility] AST [Catalytic activity/Vol] 18 U/L 14 - 40 U/L [facility] Bilirubin [Mass/Vol] 0.7 mg/dL 0.2 - 1 .3 mg/dL [facility] Calcium [Mass/Vol] 9.7 mg/dL 8.5 - 10. 2 mg/dL [facility] Chloride [Moles/Vol] 103 mmol/L 97 - 10 5 mmol/L [facility] CO2 [Moles/Vol] 24 mmol/L 22 - 30 mmol/L [facility] Creatinine [Mass/Vol] 0.73 mg/dL 0.73 - 1.22 mg/dL [facility] Estimated Glomerular Filtration Rate 98 mL/min/1.73m >=60 mL/min/1.73 m [facility] Glucose [Mass/Vol] 107 mg/dL High 74 - 99 mg/dL [facility] Potassium [Moles/Vol] 4.8 mmol/L 3.7 - 5.1 mmol/L [facility] Protein [Mass/Vol] 6.6 g/dL 6.3 - 8.0 g/dL [facility] Sodium [Moles/Vol] 135 mmol/L Low 136 - 144 mmol/L [facility] Urea nitrogen [Mass/Vol] 16 mg/dL 9 - 24 mg/dL [facility] [facility] 2000 panelon 04-06-2022 Albumin [Mass/Vol] 4.1 g/dL 3.9 - 4.9 g/dL [facility] ALP [Catalytic activity/Vol] 155 U/L High 38 - 113 U/L [facility] ALT [Catalytic activity/Vol] 38 U/L 10 - 54 U/L [facility] Anion gap [Moles/Vol] 8 mmol/L Low 9 - 18 mmol/L [facility] AST [Catalytic activity/Vol] 32 U/L 14 - 40 U/L [facility] Bilirubin [Mass/Vol] 0.7 mg/dL 0.2 - 1 .3 mg/dL [facility] Calcium [Mass/Vol] 9.9 mg/dL 8.5 - 10. 2 mg/dL [facility] Chloride [Moles/Vol] 106 mmol/L High 97 - 10 5 mmol/L [facility] CO2 [Moles/Vol] 26 mmol/L 22 - 30 mmol/L [facility] Creatinine [Mass/Vol] 0.74 mg/dL 0.73 - 1.22 mg/dL [facility] Estimated Glomerular Filtration Rate 97 mL/min/1.73m >=60 mL/min/1.73 m [facility] Glucose [Mass/Vol] 160 mg/dL High 74 - 99 mg/dL [facility] Potassium [Moles/Vol] 5.0 mmol/L 3.7 - 5.1 mmol/L [facility] Protein [Mass/Vol] 6.8 g/dL 6.3 - 8.0 g/dL [facility] Sodium [Moles/Vol] 140 mmol/L 136 - 144 mmol/L [facility] Urea nitrogen [Mass/Vol] 14 mg/dL 9 - 24 mg/dL [facility] CBC W Auto Differential pane l (Bld)on 03-16-2022 Basophils (Bld) [#/Vol] 0.04 10*3/uL <0.11 k/uL [facility] Basophils/100 WBC (Bld) 1.1 % [facility] Differential cell count method Nom (Bld) Auto [facility] Eosinophils (Bld) [#/Vol] 0.04 10*3/uL <0.46 k/uL [facility] Eosinophils/100 WBC (Bld) 1.1 % [facility] Erythrocyte distribution width (RBC) [Ratio] 14.4 % 11.5 - 15.0 % [facility] Hematocrit (Bld) [Volume fraction] 25.4 % Low 39.0 - 51.0 % [facility] Hemoglobin (Bld) [Mass/Vol] 8.5 g/dL Low 13.0 - 17.0 g/dL [facility] Immature granulocytes (Bld) [#/Vol] <0.10 k/uL [facility] Immature granulocytes/100 WBC (Bld) 0.5 % [facility] Lymphocytes (Bld) [#/Vol] 1.38 10*3/uL 1.00 - 4.00 k/uL [facility] Lymphocytes/100 WBC (Bld) 37.9 % [facility] MCH (RBC) [Entitic mass] 33.7 pg 26.0 - 34.0 pg [facility] MCHC (RBC) [Mass/Vol] 33.5 g/dL 30.5 - 36.0 g/dL [facility] MCV (RBC) [Entitic vol] 100.8 fL High 80.0 - 100.0 fL [facility] Monocytes (Bld) [#/Vol] 0.28 10*3/uL <0.87 k/uL [facility] Monocytes/100 WBC (Bld) 7.7 % [facility] Neutrophils (Bld) [#/Vol] 1.88 10*3/uL 1.45 - 7.50 k/uL [facility] Neutrophils/100 WBC (Bld) 51.7 % [facility] Nucleated RBC (Bld) [#/Vol] <0.01 k/uL [facility] Nucleated RBC/100 WBC (Bld) [Ratio] 0.0 /100 WBC [facility] Platelet mean volume (Bld) [Entitic vol] 10.1 fL 9.0 - 12.7 fL [facility] Platelets (Bld) [#/Vol] 174 10*3/uL 150 - 400 k/uL [facility] RBC (Bld) [#/Vol] 2.52 10*6/uL Low 4.20 - 6.0 0 m/uL [facility] WBC (Bld) [#/Vol] 3.64 10*3/uL Low 3.70 - 11.00 k/uL [facility] Comprehensive metabolic 2000 panelon 03-16-2022 Albumin [Mass/Vol] 4.0 g/dL 3.9 - 4.9 g/dL [facility] ALP [Catalytic activity/Vol] 153 U/L High 38 - 113 U/L [facility] ALT [Catalytic activity/Vol] 27 U/L 10 - 54 U/L [facility] Anion gap [Moles/Vol] 5 mmol/L Low 9 - 18 mmol/L [facility] AST [Catalytic activity/Vol] 22 U/L 14 - 40 U/L [facility] Bilirubin [Mass/Vol] 1.0 mg/dL 0.2 - 1 .3 mg/dL [facility] Calcium [Mass/Vol] 10.0 mg/dL 8.5 - 10. 2 mg/dL [facility] Chloride [Moles/Vol] 103 mmol/L 97 - 10 5 mmol/L [facility] CO2 [Moles/Vol] 26 mmol/L 22 - 30 mmol/L [facility] Creatinine [Mass/Vol] 0.73 mg/dL 0.73 - 1.22 mg/dL [facility] Estimated Glomerular Filtration Rate 98 mL/min/1.73m >=60 mL/min/1.73 m [facility] Glucose [Mass/Vol] 125 mg/dL High 74 - 99 mg/dL [facility] Potassium [Moles/Vol] 4.5 mmol/L 3.7 - 5.1 mmol/L [facility] Protein [Mass/Vol] 6.7 g/dL 6.3 - 8.0 g/dL [facility] Sodium [Moles/Vol] 134 mmol/L Low 136 - 144 mmol/L [facility] Urea nitrogen [Mass/Vol] 16 mg/dL 9 - 24 mg/dL [facility] CA 19-9 BLDon 03-08-2022 Cancer Ag 19-9 Qn 442.0 [arb'U]/mL High NINF - 36.0 U/mL [facility] Comment on above: Cancer antigen 19-9 test is used as an aid in monitoring response to treatment or recurrence in patients with established pancreatic, hepatobiliary, or gastrointestinal malignancies. Clinical correlation is required. The CA 19-9 Antigen test was performed using the Elle Loomel DXI paramagnetic particle chemiluminescent immunoassay method. Results obtained with different assay methods or kits cannot be used interchangeably. Cancer Ag 19-9 Qnon 03-08-20 Interpretation and review of laboratory results Abnormal [facility] CBC W Auto Differential pane l (Bld)on 03-07-2022 Basophils (Bld) [#/Vol] 0.03 10*3/uL [facility] Basophils/100 WBC (Bld) 0.3 % [facility] Differential cell count method Nom (Bld) Auto [facility] Eosinophils (Bld) [#/Vol] 0.09 10*3/uL [facility] Eosinophils/100 WBC (Bld) 0.8 % [facility] Erythrocyte distribution width (RBC) [Ratio] 14.6 % 11.5 - 15.0 % [facility] Hematocrit (Bld) [Volume fraction] 33.4 % Low 39.0 - 51.0 % [facility] Hemoglobin (Bld) [Mass/Vol] 11.0 g/dL Low 13.0 - 17.0 g/dL [facility] Immature granulocytes (Bld) [#/Vol] 0.03 10*3/uL [facility] Immature granulocytes/100 WBC (Bld) 0.3 % [facility] Interpretation and review of laboratory results Abnormal [facility] Lymphocytes (Bld) [#/Vol] 1.76 10*3/uL [facility] Lymphocytes/100 WBC (Bld) 16.4 % [facility] MCH (RBC) [Entitic mass] 33.1 pg 26.0 - 34.0 pg [facility] MCHC (RBC) [Mass/Vol] 32.9 g/dL 30.5 - 36.0 g/dL [facility] MCV (RBC) [Entitic vol] 100.6 fL High 80.0 - 100.0 fL [facility] Monocytes (Bld) [#/Vol] 0.69 10*3/uL [facility] Monocytes/100 WBC (Bld) 6.4 % [facility] Neutrophils (Bld) [#/Vol] 8.16 10*3/uL High [facility] Neutrophils/100 WBC (Bld) 75.8 % [facility] Nucleated RBC (Bld) [#/Vol] [facility] Nucleated RBC/100 WBC (Bld) [Ratio] 0.0 % /100 WBC [facility] Platelet mean volume (Bld) [Entitic vol] 9.5 fL 9.0 - 12.7 fL [facility] Platelets (Bld) [#/Vol] 257 10*3/uL [facility] RBC (Bld) [#/Vol] 3.32 10*6/uL Low 4.20 - 6.0 0 m/uL [facility] WBC (Bld) [#/Vol] 10.76 10*3/uL [facility] This is an appended report. These results have been appended to a previously verified report. [facility] CT Chest W contrast [place] IMPRESSION: [...] any questions regarding this interpretation, please call [phone]. If you are unable to reach us at the number above, please feel free to contact [facility] at [phone]. DIVISION OF RADIOLOGY * * *Final Report* * * DATE OF EXAM: Mar 07 2022 11:25AM [facility] - CT CHEST W IVCON / [...] on recently performed CT of the abdomen. 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 DIVISION OF RADIOLOGY Provider, [facility] Araceli dykes [place] - 03/07/2022 * * *Final Report* * * DATE OF EXAM: Mar 07 2022 11:25AM [facility] - CT CHEST W IVCON / [...] on recently performed CT of the abdomen. 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 IMPRESSION IMPRESSION: [...] any questions regarding this interpretation, please call [phone]. If you are unable to reach us at the number above, please feel free to contact [facility] at [phone]. [facility] Radiology Study observation (narrative) [facility] CT Chest W contrast IVOrdere d By: [facility] Provider on 03-07-2022 [facility] Comprehensive metabolic 2000 panelOrdered By: Je Elias on 03-07-2022 Albumin [Mass/Vol] 4.1 g/dL 3.9 - 4.9 g/dL [facility] ALP [Catalytic activity/Vol] 160 U/L High 38 - 113 U/L [facility] ALT [Catalytic activity/Vol] 20 U/L 10 - 54 U/L [facility] Anion gap [Moles/Vol] 8 mmol/L Low 9 - 18 mmol/L [facility] AST [Catalytic activity/Vol] 20 U/L 14 - 40 U/L [facility] Bilirubin [Mass/Vol] 1.1 mg/dL 0.2 - 1 .3 mg/dL [facility] Calcium [Mass/Vol] 10.1 mg/dL 8.5 - 10. 2 mg/dL [facility] Chloride [Moles/Vol] 102 mmol/L 97 - 10 5 mmol/L [facility] CO2 [Moles/Vol] 26 mmol/L 22 - 30 mmol/L [facility] Creatinine [Mass/Vol] 0.72 mg/dL Low 0.73 - 1.22 mg/dL [facility] GFR/1.73 sq M.predicted among non-blacks MDRD (S/P/Bld) [Vol rate/Area] 98 mL/min/{1.73_m2} - PINF [facility] Comment on above: Estimated Glomerular [...] 113 mg/dL High 74 - 99 mg/dL [facility] Comment on above: The [place] Diabete s Association (ADA) provides guidance for [...] Standards of Medical Care in Diabetes 2016, [place] Diabetes Association. Diabetes Care. 2016.39(Suppl 1). Interpretation and review of laboratory results Abnormal [facility] Potassium [Moles/Vol] 4.6 mmol/L 3.7 - 5.1 mmol/L [facility] Protein [Mass/Vol] 7.0 g/dL 6.3 - 8.0 g/dL [facility] Sodium [Moles/Vol] 136 mmol/L 136 - 144 mmol/L [facility] Urea nitrogen [Mass/Vol] 18 mg/dL 9 - 24 mg/dL [facility] CREATININE BLDOrdered By: Marianne Bee on 02-15-2022 Creatinine [Mass/Vol] 0.74 mg/dL 0.73 - 1.22 mg/dL [facility] GFR/1.73 sq M.predicted among non-blacks MDRD (S/P/Bld) [Vol rate/Area] 97 mL/min/{1.73_m2} - PINF [facility] Comment on above: Estimated Glomerular [...] Interpretation and review of laboratory results Normal [facility] CT Pancreas W contrast Kodi 02-15-2022 [...] any questions regarding this interpretation, please call [phone]. If you are unable to reach us at the number above, please feel free to contact [facility] at [phone]. DIVISION OF RADIOLOGY * * *Final Report* * * DATE OF EXAM: Feb 15 2022 11:30AM [facility] - CT PANCREAS W IVCON / [...] size of central mesenteric and retroperitoneal lymphadenopathy. Bag Filler lymph nodes are detailed as follows on [...] secondary to marrow reconversion. Lower thorax: Unremarkable. 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 DIVISION OF RADIOLOGY Provider, [facility] - 02/15/2022 * * *Final Report* * * DATE OF EXAM: Feb 15 2022 11:30AM [facility] - CT PANCREAS W IVCON / [...] size of central mesenteric and retroperitoneal lymphadenopathy. Bag Filler lymph nodes are detailed as follows on [...] secondary to marrow reconversion. Lower thorax: Unremarkable. 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 IMPRESSION IMPRESSION: [...] any questions regarding this interpretation, please call [phone]. If you are unable to reach us at the number above, please feel free to contact [facility] at [phone]. [facility] Radiology Study observation (narrative) [facility] CT Pancreas W contrast IVOrd ered By: [facility] Provider on 02-15-2022 [facility] PSA TOTAL AND %FREEon 2021 % FREE PSA 22 % Normal [facility] Comment on above: Result Comment: INTE RPRETIVE INFORMATION: Prostate Specific Antigen, Free Percentage [facility] uses the Connie Free PSA electrochemiluminescent [...] prostate cancer in individual patients. Performed By: [facility] [address] [place] [address] Plant Equipment Engineer: Marnie Diaz MD Performed By: #### P SAFT #### [facility] [address] [place] [address] PSA,FREE 0.4 ng/mL Normal [facility] Comment on above: Performed By: #### P SAFT #### [facility] [address] [place] [address] PSA,TOTAL 1.8 ng/mL Normal 0.0-4.0 [facility] Comment on above: Result Comment: INTE RPRETIVE [...] carcinoma. Performed By: #### P SAFT #### [facility] [address] [place] [address] RESPIRATORY PANEL PLUSon Adenovirus Not detected Normal NOT DETECTED [facility] Comment on above: Performed By: #### R SPLUS #### [facility] [address] [place] [address] Dr. Karen So Parapertusis Not detected Normal NOT DETECTED [facility] Comment on above: Performed By: #### R SPLUS #### [facility] [address] [place] [address] Dr. Karen Carter. Pertussis Not detected Normal NOT DETECTED [facility] Comment on above: Performed By: #### R SPLUS #### [facility] [address] [place] [address] Dr. Karen Connolly Chlamydia Pneumoniae Not detected Normal NOT DETECTED [facility] Comment on above: Performed By: #### R SPLUS #### [facility] [address] [place] [address] Dr. Karen Connolly Coronavirus 229E Not detected Normal NOT DETECTED [facility] Comment on above: Performed By: #### R SPLUS #### [facility] [address] [place] [address] Dr. Karen Connolly Coronavirus HKU1 Not detected Normal NOT DETECTED [facility] Comment on above: Performed By: #### R SPLUS #### [facility] [address] [place] [address] Dr. Karen Connolly Coronavirus NL63 Not detected Normal NOT DETECTED [facility] Comment on above: Performed By: #### R SPLUS #### [facility] [address] [place] [address] Dr. Karen Connolly Coronavirus OC43 Not detected Normal NOT DETECTED [facility] Comment on above: Performed By: #### R SPLUS #### [facility] [address] [place] [address] Dr. Karen Connolly Influenza A H1 2009 Not detected Normal NOT DETECTED [facility] Comment on above: Performed By: #### R SPLUS #### [facility] [address] [place] [address] Dr. Karen Connolly Influenza B Not detected Normal NOT DETECTED [facility] Comment on above: Performed By: #### R SPLUS #### [facility] [address] [place] [address] Dr. Karen Connolly Metapneumovirus Not detected Normal NOT DETECTED [facility] Comment on above: Performed By: #### R SPLUS #### [facility] [address] [place] [address] Dr. Karen Connolly Mycoplas. Pneumoniae Not detected Normal NOT DETECTED [facility] Comment on above: Performed By: #### R SPLUS #### [facility] [address] [place] [address] Dr. Karen Connolly Parainfluenza 1 Not detected Normal NOT DETECTED [facility] Comment on above: Performed By: #### R SPLUS #### [facility] [address] [place] [address] Dr. Karen Connolly Parainfluenza 2 Not detected Normal NOT DETECTED [facility] Comment on above: Performed By: #### R SPLUS #### [facility] [address] [place] [address] Dr. Karen Connolly Parainfluenza 3 Not detected Normal NOT DETECTED [facility] Comment on above: Performed By: #### R SPLUS #### [facility] [address] [place] [address] Dr. Karen Connolly Parainfluenza 4 Not detected Normal NOT DETECTED [facility] Comment on above: Performed By: #### R SPLUS #### [facility] [address] [place] [address] Dr. Karen Connolly Rhino/Enterovirus Not detected Normal NOT DETECTED [facility] Comment on above: Performed By: #### R SPLUS #### [facility] [address] [place] [address] Dr. Karen Connolly RP2 Header 1 RESPIRATORY PANEL: VIRUSES Normal [facility] Comment on above: Performed By: #### R SPLUS #### [facility] [address] [place] [address] Dr. Karen Connolly RP2 Header 2 RESPIRATORY PANEL: BACTERIA Normal [facility] Comment on above: Performed By: #### R SPLUS #### [facility] [address] [place] [address] Dr. Karen Connolly RSV Not detected Normal NOT DETECTED [facility] Comment on above: Performed By: #### R SPLUS #### [facility] [address] [place] [address] Dr. Karen Connolly SARS-CoV-2 (COVID-19) RNA MIRTHA+probe Ql (Unsp spec) Detected Critically abnormal NOT DETECTED [facility] Comment on above: Performed By: #### R SPLUS #### [facility] [address] [place] [address] Dr. Karen Connolly CBC AUTO DIFFon 03-11-2021 BASO # 0.0 103/ul Normal 0.0-0.1 [facility] Comment on above: Performed By: #### C BC #### [facility] [address] [place] [address] Dr. Karen Connolly Basophils/100 WBC (Bld) 0.4 % Normal 0.2-2.0 [facility] Comment on above: Performed By: #### C BC #### [facility] [address] [place] [address] Dr. Karen Connolly EO # 0.1 103/ul Normal 0.0-0.7 [facility] Comment on above: Performed By: #### C BC #### [facility] [address] [place] [address] Dr. Karen Connolly Eosinophils/100 WBC (Bld) 1.4 % Normal 0.9-7.0 [facility] Comment on above: Performed By: #### C BC #### [facility] [address] [place] [address] Dr. Karen Connolly Erythrocyte distribution width (RBC) [Ratio] 15.0 % Normal 11.0-15.0 [facility] Comment on above: Performed By: #### C BC #### [facility] [address] [place] [address] Dr. Karen Connolly Hematocrit (Bld) [Volume fraction] 31.7 % Critically low 42.0-54.0 [facility] Comment on above: Performed By: #### C BC #### [facility] [address] [place] [address] Dr. Karen Connolly Hemoglobin (Bld) [Mass/Vol] 10.0 g/dL Critically low 14.0-18.0 [facility] Comment on above: Performed By: #### C BC #### [facility] [address] [place] [address] Dr. Karen Connolly IG # 0.02 10e3/ul Normal 0.00-0.03 [facility] Comment on above: Performed By: #### C BC #### [facility] [address] [place] [address] Dr. Karen Connolly IG % 0.2 % Normal 0.0-0.5 [facility] Comment on above: Performed By: #### C BC #### [facility] [address] [place] [address] Dr. Karen Connolly LYMPH # 2.1 103/ul Normal 1.2-3.8 [facility] Comment on above: Performed By: #### C BC #### [facility] [address] [place] [address] Dr. Karen Connolly Lymphocytes/100 WBC (Bld) 26.3 % Normal 20.5-60.0 [facility] Comment on above: Performed By: #### C BC #### [facility] [address] [place] [address] Dr. Karen Connolly MANUAL DIFF REQ NO Normal [facility] Comment on above: Performed By: #### C BC #### [facility] [address] [place] [address] Dr. Karen Connolly MCH (RBC) [Entitic mass] 30.6 pg Normal 25.9-34.0 [facility] Comment on above: Performed By: #### C BC #### [facility] [address] [place] [address] Dr. Karen Connolly MCHC (RBC) [Mass/Vol] 31.5 g/dL Normal 29.9-35.2 [facility] Comment on above: Performed By: #### C BC #### [facility] [address] [place] [address] Dr. Karen Connolly MCV (RBC) [Entitic vol] 96.9 fL Critically high 80.0-94.0 [facility] Comment on above: Performed By: #### C BC #### [facility] [address] [place] [address] Dr. Karen Connolly MONO # 0.5 103/ul Normal 0.3-0.8 [facility] Comment on above: Performed By: #### C BC #### [facility] [address] [place] [address] Dr. Karen Connolly Monocytes/100 WBC (Bld) 6.6 % Normal 1.7-12.0 [facility] Comment on above: Performed By: #### C BC #### [facility] [address] [place] [address] Dr. Karen Connolly NEUT # 5.2 103/ul Normal 1.4-6.5 [facility] Comment on above: Performed By: #### C BC #### [facility] [address] [place] [address] Dr. Karen Connolly Neutrophils/100 WBC (Bld) 65.1 % Normal 43.0-75.0 [facility] Comment on above: Performed By: #### C BC #### [facility] [address] [place] [address] Dr. Karen Connolly Platelet mean volume (Bld) [Entitic vol] 10.4 fL Normal 9.5-13.5 [facility] Comment on above: Performed By: #### C BC #### [facility] [address] [place] [address] Dr. Karen Connolly PLT 280 103/ul Normal 150-450 [facility] Comment on above: Performed By: #### C BC #### [facility] [address] [place] [address] Dr. Karen Connolly RBC 3.27 106/ul Critically low 4.70-6.10 [facility] Comment on above: Performed By: #### C BC #### [facility] [address] [place] [address] Dr. Karen Connolly WBC 8.0 103/ul Normal 4.0-11.0 [facility] Comment on above: Performed By: #### C BC #### [facility] [address] [place] [address] Dr. Karen Connolly CBC AUTO DIFFon 03-04-2021 BASO # 0.0 103/ul Normal 0.0-0.1 [facility] Comment on above: Performed By: #### C BC #### [facility] [address] [place] [address] Dr. Karen Connolly Basophils/100 WBC (Bld) 0.4 % Normal 0.2-2.0 [facility] Comment on above: Performed By: #### C BC #### [facility] [address] [place] [address] Dr. Karen Connolly EO # 0.1 103/ul Normal 0.0-0.7 [facility] Comment on above: Performed By: #### C BC #### [facility] [address] [place] [address] Dr. Karen Connolly Eosinophils/100 WBC (Bld) 1.2 % Normal 0.9-7.0 [facility] Comment on above: Performed By: #### C BC #### [facility] [address] [place] [address] Dr. Karen Connolly Erythrocyte distribution width (RBC) [Ratio] 15.4 % Critically high 11.0-15.0 [facility] Comment on above: Performed By: #### C BC #### [facility] [address] [place] [address] Dr. Karen Connolly Hematocrit (Bld) [Volume fraction] 29.7 % Critically low 42.0-54.0 [facility] Comment on above: Performed By: #### C BC #### [facility] [address] [place] [address] Dr. Karen Connolly Hemoglobin (Bld) [Mass/Vol] 9.3 g/dL Critically low 14.0-18.0 [facility] Comment on above: Performed By: #### C BC #### [facility] [address] [place] [address] Dr. Karen Connolly IG # 0.01 10e3/ul Normal 0.00-0.03 [facility] Comment on above: Performed By: #### C BC #### [facility] [address] [place] [address] Dr. Karen Connolly IG % 0.2 % Normal 0.0-0.5 [facility] Comment on above: Performed By: #### C BC #### [facility] [address] [place] [address] Dr. Karen Connolly LYMPH # 1.4 103/ul Normal 1.2-3.8 [facility] Comment on above: Performed By: #### C BC #### [facility] [address] [place] [address] Dr. Karen Connolly Lymphocytes/100 WBC (Bld) 24.7 % Normal 20.5-60.0 [facility] Comment on above: Performed By: #### C BC #### [facility] [address] [place] [address] Dr. Karen Connolly MANUAL DIFF REQ NO Normal [facility] Comment on above: Performed By: #### C BC #### [facility] [address] [place] [address] Dr. Karen Connolly MCH (RBC) [Entitic mass] 30.1 pg Normal 25.9-34.0 [facility] Comment on above: Performed By: #### C BC #### [facility] [address] [place] [address] Dr. Karen Connolly MCHC (RBC) [Mass/Vol] 31.3 g/dL Normal 29.9-35.2 [facility] Comment on above: Performed By: #### C BC #### [facility] [address] [address] [address] Karen Connolly MCV (RBC) [Entitic vol] 96.1 fL Critically high 80.0-94.0 [facility] Comment on above: Performed By: #### C BC #### [facility] [address] [place] [address] Dr. Karen Connolly MONO # 0.6 103/ul Normal 0.3-0.8 [facility] Comment on above: Performed By: #### C BC #### [facility] [address] [place] [address] Dr. Karen Connolly Monocytes/100 WBC (Bld) 10.6 % Normal 1.7-12.0 [facility] Comment on above: Performed By: #### C BC #### [facility] [address] [place] [address] Dr. Karen Connolly NEUT # 3.6 103/ul Normal 1.4-6.5 [facility] Comment on above: Performed By: #### C BC #### [facility] [address] [place] [address] Dr. Karen Connolly Neutrophils/100 WBC (Bld) 62.9 % Normal 43.0-75.0 [facility] Comment on above: Performed By: #### C BC #### [facility] [address] [place] [address] Dr. Karen Connolly Platelet mean volume (Bld) [Entitic vol] 10.0 fL Normal 9.5-13.5 [facility] Comment on above: Performed By: #### C BC #### [facility] [address] [place] [address] Dr. Karen Connolly PLT 258 103/ul Normal 150-450 [facility] Comment on above: Performed By: #### C BC #### [facility] [address] [place] [address] Dr. Karen Connolly RBC 3.09 106/ul Critically low 4.70-6.10 [facility] Comment on above: Performed By: #### C BC #### [facility] [address] [address] [address] Karen Connolly WBC 5.7 103/ul Normal 4.0-11.0 [facility] Comment on above: Performed By: #### C BC #### [facility] [address] [place] [address] Dr. Karen Connolly CBC AUTO DIFFon 02-25-2021 BASO # 0.1 103/ul Normal 0.0-0.1 [facility] Comment on above: Performed By: #### C BC #### [facility] [address] [address] [address] Karen Connolly Basophils/100 WBC (Bld) 0.8 % Normal 0.2-2.0 [facility] Comment on above: Performed By: #### C BC #### [facility] [address] [place] [address] Dr. Karen Connolly EO # 0.9 103/ul Critically high 0.0-0.7 [facility] Comment on above: Performed By: #### C BC #### [facility] [address] [place] [address] Dr. Karen Connolly Eosinophils/100 WBC (Bld) 9.7 % Critically high 0.9-7.0 [facility] Comment on above: Performed By: #### C BC #### [facility] [address] [place] [address] Dr. Karen Connolly Erythrocyte distribution width (RBC) [Ratio] 15.1 % Critically high 11.0-15.0 [facility] Comment on above: Performed By: #### C BC #### [facility] [address] [place] [address] Dr. Karen Connolly Hematocrit (Bld) [Volume fraction] 29.3 % Critically low 42.0-54.0 [facility] Comment on above: Performed By: #### C BC #### [facility] [address] [place] [address] Dr. Karen Connolly Hemoglobin (Bld) [Mass/Vol] 9.3 g/dL Critically low 14.0-18.0 [facility] Comment on above: Performed By: #### C BC #### [facility] [address] [place] [address] Dr. Karen Connolly IG # 0.02 10e3/ul Normal 0.00-0.03 [facility] Comment on above: Performed By: #### C BC #### [facility] [address] [place] [address] Dr. Karen Connolly IG % 0.2 % Normal 0.0-0.5 [facility] Comment on above: Performed By: #### C BC #### [facility] [address] [place] [address] Dr. Karen Connolly LYMPH # 2.2 103/ul Normal 1.2-3.8 [facility] Comment on above: Performed By: #### C BC #### [facility] [address] [place] [address] Dr. Karen Connolly Lymphocytes/100 WBC (Bld) 24.3 % Normal 20.5-60.0 [facility] Comment on above: Performed By: #### C BC #### [facility] [address] [place] [address] Dr. Karen Connolly MANUAL DIFF REQ NO Normal [facility] Comment on above: Performed By: #### C BC #### [facility] [address] [place] [address] Dr. Karen Connolly MCH (RBC) [Entitic mass] 30.7 pg Normal 25.9-34.0 [facility] Comment on above: Performed By: #### C BC #### [facility] [address] [place] [address] Dr. Karen Connolly MCHC (RBC) [Mass/Vol] 31.7 g/dL Normal 29.9-35.2 [facility] Comment on above: Performed By: #### C BC #### [facility] [address] [place] [address] Dr. Karen Connolly MCV (RBC) [Entitic vol] 96.7 fL Critically high 80.0-94.0 [facility] Comment on above: Performed By: #### C BC #### [facility] [address] [address] [address] Karen Connolly MONO # 0.6 103/ul Normal 0.3-0.8 [facility] Comment on above: Performed By: #### C BC #### [facility] [address] [address] [address] Karen Connolly Monocytes/100 WBC (Bld) 6.9 % Normal 1.7-12.0 [facility] Comment on above: Performed By: #### C BC #### [facility] [address] [address] [address] Karen Connolly NEUT # 5.3 103/ul Normal 1.4-6.5 [facility] Comment on above: Performed By: #### C BC #### [facility] [address] [place] [address] Dr. Karen Connolly Neutrophils/100 WBC (Bld) 58.1 % Normal 43.0-75.0 [facility] Comment on above: Performed By: #### C BC #### [facility] [address] [address] [address] Karen Connolly Platelet mean volume (Bld) [Entitic vol] 9.6 fL Normal 9.5-13.5 [facility] Comment on above: Performed By: #### C BC #### [facility] [address] [address] [address] Karen Connolly PLT 317 103/ul Normal 150-450 [facility] Comment on above: Performed By: #### C BC #### [facility] [address] [address] [address] Karen Connolly RBC 3.03 106/ul Critically low 4.70-6.10 [facility] Comment on above: Performed By: #### C BC #### [facility] [address] [address] [address] Karen Connolly WBC 9.0 103/ul Normal 4.0-11.0 [facility] Comment on above: Performed By: #### C BC #### [facility] [address] [address] [address] Karen Connolly Ambulatory Clinical Summaryo n 08-17-2020 Ambulatory Clinical Summary {[id number] Normal [facility] Patient Educationon 08-18-19 21 Patient Education Benign [...] Document Reviewed: 01/11/2008 ExitCare? Patient Information ?2013 [employer]. [facility] Urology Office/Clinic Noteon 08-17-2020 Urology Office/Clinic Note [...] With When Contact Information GERI GODWIN, Billy [address] [phone]- [phone] Additional Instructions: 6mos. kub Patient Education Benign [...] Protein Urine Dipstick: Negative (08/17/20 14:35:00) Specific [place] Urine Dipstick: 1.025 (08/17/20 14:35:00) Urine Appearan (more content not included)... Normal [facility] Comment on above: Result Comment: Elec tronically Signed By: Billy NEVAREZ MD\.br\Date and Time Signed: 08/17/20 15:19 EDT\.br\Electronically Co-Signed By: Eufemia Gomes MA\.br\Date and Time Co-Signed: 08/17/20 15:18 EDT Lab Reportson 05-06-2020 Lab Reports [id number]:12 7 Normal [facility] CBC Auto Differentialon 03-23 Basophils (Bld) [#/Vol] 0.04 10*3/uL [place] Basophils/100 WBC (Bld) 1 % 0 - 2 % [place] Differential Type NOT REPORTED [place] Eosinophils (Bld) [#/Vol] 0.05 10*3/uL [place] Eosinophils/100 WBC (Bld) 1 % 1 - 4 % [place] Erythrocyte distribution width (RBC) [Ratio] 19.1 % High 11.8 - 14.4 % [place] Hematocrit (Bld) [Volume fraction] 25.6 % Low 40.7 - 50.3 % [place] Hemoglobin (Bld) [Mass/Vol] 7.7 g/dL Low 13 - 17 g/dL [place] Immature granulocytes (Bld) [#/Vol] 0.05 10*3/uL [place] Immature granulocytes (Bld) [#/Vol] 1 % High 0 [place] Interpretation and review of laboratory results Abnormal [place] Lymphocytes (Bld) [#/Vol] 1.97 10*3/uL [place] Lymphocytes/100 WBC (Bld) 29 % 24 - 43 % [place] MCH (RBC) [Entitic mass] 26.7 pg 25.2 - 33.5 pg [place] MCHC (RBC) [Mass/Vol] 30.1 g/dL 28.4 - 34.8 g/dL [place] MCV (RBC) [Entitic vol] 88.9 fL 82.6 - 102.9 fL [place] Monocytes (Bld) [#/Vol] 0.56 10*3/uL [place] Monocytes/100 WBC (Bld) 8 % 3 - 12 % [place] Platelet mean volume (Bld) [Entitic vol] 8.6 fL 8.1 - 13.5 fL [place] Platelets (Bld) [#/Vol] NOT REPORTED [place] Platelets (Bld) [#/Vol] 474 10*3/uL [place] RBC (Bld) [#/Vol] 2.88 10*6/uL Low 4.21 - 5.7 7 m/uL [place] RBC morphology finding Nom (Bld) NOT REPORTED [place] Segmented neutrophils/100 WBC (Bld) 60 % 36 - 65 % [place] Segs Absolute 4.21 [place] WBC (Bld) [#/Vol] 0.0 10*3/uL 0.0 per 10 0 WBC [place] WBC (Bld) [#/Vol] 6.9 10*3/uL [place] WBC Morphology NOT REPORTED [place] CBC with Diffon 04-15-2020 Abs. Basophil 0.04 k/uL Normal 0.00-0.20 [facility] Comment on above: Performed By: #### C P, CDP #### [facility] [address] [place] [address] [address] [id number] [employer]: Farhad Turner MD Abs.Imm.Granulocyte 0.05 k/uL Normal 0.00-0.[address] [facility] Comment on above: Performed By: #### C P, CDP #### [address] 0262883 [employer]: Farhad Turner MD Abs.Neutrophil (Seg) 4.21 k/uL Normal 1.50-8.10 [facility] Comment on above: Performed By: #### C P, CDP #### [address] [place] [address] [employer]: Farhad Turner MD Basophils/100 WBC (Bld) 1 % Normal 0-[address] [facility] Comment on above: Performed By: #### C P, CDP #### [address] [id number] [employer]: Farhad Turner MD Eosinophils (Bld) [#/Vol] 0.05 10*3/uL Normal 0.00-0.[address] [facility] Comment on above: Performed By: #### C P, CDP #### [facility] [address] [place], [facility]83 [employer]: Farhad Turner MD Eosinophils/100 WBC (Bld) 1 % Normal 1-[address] [facility] Comment on above: Performed By: #### C P, CDP #### [facility] [address] [place], [facility]83 [employer]: Farhad Turner MD Erythrocyte distribution width (RBC) [Ratio] 19.1 % High 11.8-14.[address] [facility] Comment on above: Performed By: #### C P, CDP #### [address], [place] [address] [employer]: Farhad Turner MD Hematocrit (Bld) [Volume fraction] 25.6 % Low 40.7-50.[address] [facility] Comment on above: Performed By: #### C P, CDP #### [address] [place], [place] [address] [employer]: Farhad Turner MD Hemoglobin (Bld) [Mass/Vol] 7.7 g/dL Low 13.0-17.[address] [facility] Comment on above: Performed By: #### C P, CDP #### [address] [place], [facility]83 [employer]: Farhad Turner MD Immature granulocytes (Bld) [#/Vol] 1 % High [address] [facility] Comment on above: Performed By: #### C P, CDP #### [facility] [address] [place], [facility]83 [employer]: Farhad Turner MD Lymphocytes (Bld) [#/Vol] 1.97 10*3/uL Normal 1.10-3.[address] [facility] Comment on above: Performed By: #### C P, CDP #### [address] [place], [facility]83 [employer]: Farhad Turner MD Lymphocytes/100 WBC (Bld) 29 % Normal 24-[address] [facility] Comment on above: Performed By: #### C P, CDP #### [facility] [address] [place] [id number] [employer]: Farhad Turner MD MCH (RBC) [Entitic mass] 26.7 pg Normal 25.2-33.[address] [facility] Comment on above: Performed By: #### C P, CDP #### [facility] [address] [place], [place] 1195683 [employer]: Farhad Turner MD MCHC (RBC) [Mass/Vol] 30.1 g/dL Normal 28.4-34.8 [facility] Comment on above: Performed By: #### C P, CDP #### [facility] [address] [place], [place] 5755583 [employer]: Farhad Turner MD MCV (RBC) [Entitic vol] 88.9 fL Normal 82.6-102.[address] [facility] Comment on above: Performed By: #### C P, CDP #### [facility] [address] [place], [place] 1092383 [employer]: Farhad Turner MD Monocytes (Bld) [#/Vol] 0.56 10*3/uL Normal 0.10-1.[address] [facility] Comment on above: Performed By: #### C P, CDP #### [facility] [address] [place], [place] [id number] [employer]: Farhad Turner MD Monocytes/100 WBC (Bld) 8 % Normal 3-[address] [facility] Comment on above: Performed By: #### C P, CDP #### [facility] [address] [place], [place] 5358183 [employer]: Farhad Turner MD Neutrophil (Seg) 60 % Normal 36-65 [facility] Comment on above: Performed By: #### C P, CDP #### [facility] [address] [place], [place] 3479383 [employer]: Farhad Turner MD NRBC Automated 0.0 per 100 WBC Normal 0.[address] [facility] Comment on above: Performed By: #### C P, CDP #### [facility] [address] [place], [facility]83 [employer]: Farhad Turner MD Platelet mean volume (Bld) [Entitic vol] 8.6 fL Normal 8.1-13.[address] [facility] Comment on above: Performed By: #### C P, CDP #### [facility] [address] [place], [facility]83 [employer]: Farhad Turner MD Platelets (Bld) [#/Vol] 474 10*3/uL High 138-[address] [facility] Comment on above: Performed By: #### C P, CDP #### [facility] [address] [place], [facility]83 [employer]: Farhad Turner MD RBC (Bld) [#/Vol] 2.88 10*6/uL Low 4.21-5.[address] [facility] Comment on above: Performed By: #### C P, CDP #### [facility] [address] [place], [place] [address] [employer]: Farhad Turner MD WBC (Bld) [#/Vol] 6.9 10*3/uL Normal 3.5-11.[address] [facility] Comment on above: Performed By: #### C P, CDP #### [facility] [address] [place], [place] 7803183 [employer]: Farhad Turner MD Auto Diff Performed NOT REPORTED Normal [facility] Comment on above: Performed By: #### C P, CDP #### [facility] [address] [place], [place] 3447383 [employer]: Farhad Turner MD Platelets (Bld) [#/Vol] NOT REPORTED Normal [facility] Comment on above: Performed By: #### C P, CDP #### [facility] [address] [place], [place] 3082683 [employer]: Farhad Turner MD RBC morphology finding Nom (Bld) NOT REPORTED Normal [facility] Comment on above: Performed By: #### C P, CDP #### [facility] [address] [place], [place] 0548183 [employer]: Farhad Turner MD WBC Morphology NOT REPORTED Normal [facility] Comment on above: Performed By: #### C P, CDP #### [facility] [address] [place], [place] 0468483 [employer]: Farhad Turner MD Comp Metabolic Profon 2019 (cont.) Normal [facility] Comment on above: Result Comment: Aver age GFR for 60-69 years old: 85 mL/min/1.73sq m Chronic Kidney Disease: <60 mL/min/1.73sq m Kidney failure: <15 mL/min/1.73sq m eGFR calculated using average adult body mass. Additional eGFR calculator available at: http://www.[employer]/multiple_crcl_2012.htm Performed By: #### C P, CDP #### [facility] [address] [place] [address] [employer]: Farhad Turner MD Albumin [Mass/Vol] 2.0 g/dL Low 3.5-5.[address] [facility] Comment on above: Performed By: #### C P, CDP #### [facility] [address] [place] [address] [employer]: Farhad Turner MD Albumin/Globulin [Mass ratio] 0.5 {ratio} Low 1.0-2.[address] [facility] Comment on above: Performed By: #### C P, CDP #### [facility] [address] [place], [place] [id number] [employer]: Farhad Turner MD Alkaline Phos 74 U/L Normal 40-129 [facility] Comment on above: Performed By: #### C P, CDP #### [facility] [address] [place], [place] 956[address]83 [employer]: Farhad Turner MD ALT [Catalytic activity/Vol] 6 U/L Normal 5-[address] [facility] Comment on above: Performed By: #### C P, CDP #### [facility] [address] [place], [place] 0787683 [employer]: Farhad Turner MD Anion gap [Moles/Vol] 5 mmol/L Low 9-17 [facility] Comment on above: Performed By: #### C P, CDP #### [facility] [address] [place], [place] 2702783 [employer]: Farhad Turner MD AST [Catalytic activity/Vol] 12 U/L Normal <[address] [facility] Comment on above: Performed By: #### C P, CDP #### [facility] [address] [place], [place] 0419483 [employer]: Farhad Turner MD Bilirubin Ql (U) 0.32 mg/dL Normal 0.3-1.2 [facility] Comment on above: Performed By: #### C P, CDP #### [facility] [address] [place], [place] [id number] [employer]: Farhad Turner MD BUN/CRE Ratio 21 High 9-20 [facility] Comment on above: Performed By: #### C P, CDP #### [facility] [address] [place], [place] 8127483 [employer]: Farhad Turner MD Calcium [Mass/Vol] 9.4 mg/dL Normal 8.6-10.[address] [facility] Comment on above: Performed By: #### C P, CDP #### [facility] [address] [place], [place] 4405383 [employer]: aFrhad Turner MD Chloride [Moles/Vol] 101 mmol/L Normal 98-107 [facility] Comment on above: Performed By: #### C P, CDP #### [facility] [address] [place], [place] [phone] [employer]: Farhad Turner MD CO2 [Moles/Vol] 30 mmol/L Normal 20-31 [facility] Comment on above: Performed By: #### C P, CDP #### [facility] [address] [place], [place] 1642583 [employer]: Farhad Turner MD Creatinine [Mass/Vol] 0.28 mg/dL Low 0.70-1.20 [facility] Comment on above: Performed By: #### C P, CDP #### [facility] [address] [place], [place] 9277683 [employer]: Farhad Turner MD GFR, Amer >60 Normal >60 [facility] Comment on above: Performed By: #### C P, CDP #### [facility] [address] [place] [address] [employer]: Farhad Turner MD GFR,non Amer >60 Normal >60 [facility] Comment on above: Performed By: #### C P, CDP #### [facility] [address] [place] [address] [employer]: Farhad Turner MD Glucose [Mass/Vol] 120 mg/dL High 70-[address] [facility] Comment on above: Performed By: #### C P, CDP #### [facility] [address] [place], [place] 8771983 [employer]: Farhad Turner MD Potassium [Moles/Vol] 3.3 mmol/L Low 3.7-5.3 [facility] Comment on above: Performed By: #### C P, CDP #### [facility] [address] [place], [place] [address] [employer]: Farhad Turner MD Protein [Mass/Vol] 5.9 g/dL Low 6.4-8.[address] [facility] Comment on above: Performed By: #### C P, CDP #### [facility] [address] [place], [place] [address] [employer]: Farhad Turner MD Sodium [Moles/Vol] 136 mmol/L Normal 135-[address] [facility] Comment on above: Performed By: #### C P, CDP #### [facility] [address] [place], [place] [address] [employer]: Farhad Turner MD Staging: Normal [facility] Comment on above: Result Comment: Stag e 1: Some kidney damage normal GFR Stage 2: Mild kidney damage GFR 60-89 Stage 3: Moderate kidney damage GFR 30-59 Stage 4: Severe kidney damage GFR 15-29 Stage 5: Severe kidney damage GFR <15 ESRD - chronic treatment by dialysis or transplant Performed By: #### C P, CDP #### [facility] [address] [place], [place] [address] [employer]: Farhad Turner MD Urea nitrogen [Mass/Vol] 6 mg/dL Low 8-[address] [facility] Comment on above: Performed By: #### C P, CDP #### [facility] [address] [place], [place] [address] [employer]: Farhad Turner MD Comprehensive Metabolic Pane [facility] 04-15-2020 Albumin [Mass/Vol] 2 g/dL Low 3.5 - 5.2 g/dL [place] Albumin/Globulin [Mass ratio] 0.5 {ratio} Low [place] ALP [Catalytic activity/Vol] 74 U/L 40 - 129 U/L [place] ALT [Catalytic activity/Vol] 6 U/L 5 - 41 U/L [place] Anion gap [Moles/Vol] 5 mmol/L Low 9 - 17 mmol/L [place] AST [Catalytic activity/Vol] 12 U/L <40 [place] Bilirubin Ql (U) 0.32 mg/dL 0.3 - 1.2 mg/dL [place] Bun/Cre Ratio 21 High [place] Calcium [Mass/Vol] 9.4 mg/dL 8.6 - 10. 4 mg/dL [place] Chloride [Moles/Vol] 101 mmol/L 98 - 10 7 mmol/L [place] CO2 [Moles/Vol] 30 mmol/L 20 - 31 mmol/L [place] Creatinine [Mass/Vol] 0.28 mg/dL Low 0.7 - 1.2 mg/dL [place] GFR >60 >60 mL/min [place] GFR Non- >60 >60 mL/min [place] Glucose [Mass/Vol] 120 mg/dL High 70 - 99 mg/dL [place] Interpretation and review of laboratory results Abnormal [place] Potassium [Moles/Vol] 3.3 mmol/L Low 3.7 - 5.3 mmol/L [place] Protein [Mass/Vol] 5.9 g/dL Low 6.4 - 8.3 g/dL [place] Sodium [Moles/Vol] 136 mmol/L 135 - 144 mmol/L [place] Urea nitrogen [Mass/Vol] 6 mg/dL Low 8 - 23 mg/dL [place] Metabolic Panelon 04-15-2020 GFR/1.73 sq M predicted among non-blacks MDRD (S/P/Bld) [Vol rate/Area] [place] Comment on above: Stage 1: Some [...] body mass. Additional eGFR calculator available at: http://www.[employer]/multiple_crcl_2012.htm [facility] 04-13-2020 Transfer In [id number]:12 7 Normal [facility] CBCon 03-16-2020 Erythrocyte distribution width (RBC) [Ratio] 17.3 % High 11.8 - 14.4 % [place] Hematocrit (Bld) [Volume fraction] 30.0 % Low 40.7 - 50.3 % [place] Hemoglobin (Bld) [Mass/Vol] 8.7 g/dL Low 13 - 17 g/dL [place] Interpretation and review of laboratory results Abnormal [place] MCH (RBC) [Entitic mass] 25.1 pg Low 25.2 - 33.5 pg [place] MCHC (RBC) [Mass/Vol] 29.0 g/dL 28.4 - 34.8 g/dL [place] MCV (RBC) [Entitic vol] 86.5 fL 82.6 - 102.9 fL [place] Platelet mean volume (Bld) [Entitic vol] 8.8 fL 8.1 - 13.5 fL [place] Platelets (Bld) [#/Vol] 471 10*3/uL [place] RBC (Bld) [#/Vol] 3.47 10*6/uL Low 4.21 - 5.7 7 m/uL [place] WBC (Bld) [#/Vol] 14.6 10*3/uL [place] WBC (Bld) [#/Vol] 0.0 10*3/uL 0.0 per 10 0 WBC [place] Comprehensive Metabolic Pane [facility]o 03-16-2020 Albumin [Mass/Vol] 2.1 g/dL Low 3.5 - 5.2 g/dL [place] Albumin/Globulin [Mass ratio] 0.5 {ratio} Low [place] ALP [Catalytic activity/Vol] 54 U/L 40 - 129 U/L [place] ALT [Catalytic activity/Vol] U/L Low 5 - 41 U/L [place] Anion gap [Moles/Vol] 9 mmol/L 9 - 17 mmol/L [place] AST [Catalytic activity/Vol] 9 U/L <40 [place] Bilirubin Ql (U) 0.18 mg/dL Low 0.3 - 1.2 mg/dL [place] Bun/Cre Ratio 18 [place] Calcium [Mass/Vol] 9.7 mg/dL 8.6 - 10. 4 mg/dL [place] Chloride [Moles/Vol] 99 mmol/L 98 - 10 7 mmol/L [place] CO2 [Moles/Vol] 27 mmol/L 20 - 31 mmol/L [place] Creatinine [Mass/Vol] 0.39 mg/dL Low 0.7 - 1.2 mg/dL [place] GFR >60 >60 mL/min [place] GFR Non- >60 >60 mL/min [place] Glucose [Mass/Vol] 98 mg/dL 70 - 99 mg/dL [place] Interpretation and review of laboratory results Abnormal [place] Potassium [Moles/Vol] 3.6 mmol/L Low 3.7 - 5.3 mmol/L [place] Protein [Mass/Vol] 6.3 g/dL Low 6.4 - 8.3 g/dL [place] Sodium [Moles/Vol] 135 mmol/L 135 - 144 mmol/L [place] Urea nitrogen [Mass/Vol] 7 mg/dL Low 8 - 23 mg/dL [place] Metabolic Panelon 03-16-2020 GFR/1.73 sq M predicted among non-blacks MDRD (S/P/Bld) [Vol rate/Area] [facility] [place] [place] Comment on above: Average GFR for 60-6 9 years old: 85 mL/min/1.73sq m Chronic Kidney Disease: <60 mL/min/1.73sq m Kidney failure: <15 mL/min/1.73sq m eGFR calculated using average adult body mass. Additional eGFR calculator available at: http://www.[employer]/multiple_crcl_2012.htm Stage 1: Some kidney damage normal GFR Stage 2: Mild kidney damage GFR 60-89 Stage 3: Moderate kidney damage GFR 30-59 Stage 4: Severe kidney damage GFR 15-29 Stage 5: Severe kidney damage GFR <15 ESRD - chronic treatment by dialysis or transplant Transfer Inon 03-13-2020 Transfer In [id number]:12 7 [facility] Lab Reportson 03-06-2020 Lab Reports [id number]:12 7 [facility] Reminderson 03-06-2020 Reminders - From: Rain Cade To: EU - Clinical; Sent: 03/02/2020 10:47:20 EDT Show up: 03/04/2020 10:47:00 EDT Subject: Urine C&S Due Date/Time: 03/06/2020 10:47:00 EDT Reminder/Recall Urine C&S done [facility] Please review Urine C&S and call pt with results.LG From: Rain Cade (EU - Clinical) To: GERI GODWIN, Billy Jordan; Sent: 03/06/2020 08:48:22 EDT Show up: 03/06/2020 08:48:00 EDT Subject: RE: Urine C&S Dr. Nevarez reviewed. levaquin 500mg qd #14 proposed. pts was notified.LG [facility] SURGICAL PATHOLOGYon 020 SURGICAL PATHOLOGY ADDENDUM PRESENT Specimen #: [id number] Submitting Physician: JASON MUÑOZ M.D. FINAL DIAGNOSIS [facility], [place], [place]; [id number] (11/13/2019) Duodenum, postbulbar, biopsy (A1, stains) - [...] to contact the GI Consultation Service at [phone] with questions or if additional follow up information becomes available. This case was reviewed in conjunction with the GI pathology fellow, Rajan Bain M.D., Ph.D. /HYL//11-19-2019 Walter De Luna M.D., Ph.D. (Electronic Signature) SPECIMEN SUBMITTED A: 6 SLIDES [id number] ADDENDUM Date Ordered: 11/19/2019 Date Reported: 11/19/2019 This case has also been reviewed in consultation with Dr. Halie Cartwright, who concurs with the diagnosis. Addendum Pathologist: Walter De Luna M.D., Ph.D. Electronic Signature CLINICAL DATA Abdominal pain. Patient ID #: Date of Report: 11/19/2019 Date of Procedure: 11/18/2019 Date of Receipt: 11/18/2019 Submitted by: JASON MUÑOZ M.D. Location: Diagnostic interpretation performed at [facility], [address] [place] [address]. CLIA Number: [id number] Normal [facility] Reference Lab Comment on above: Performed By: #### S #### See report for performing lab information. Vital Signs Date Time Vital Sign Value Performing Clinician Facility 03-07-2024 10:56-0400 Body temperature 98.1 [degF] [employer] Work Phone: [facility] 03-07-2024 10:56-0400 Diastolic blood pressure 70 mm[Hg] [employer] Work Phone: [facility] 03-07-2024 10:56-0400 Heart rate 88 /min [employer] Work Phone: [facility] 03-07-2024 10:56-0400 Respiratory rate 18 /min [employer] Work Phone: [facility] 03-07-2024 10:56-0400 SaO2% (BldA) [Mass fraction] 100 % Chair Natchez Work Phone: [facility] 03-07-2024 10:56-0400 Systolic blood pressure 107 mm[Hg] Chair Danny Work Phone: [facility] 03-05-2024 08:42-0400 Body height 169.7 cm Vivek Smith MD Work Phone: [facility] 03-05-2024 08:42-0400 Body mass index (BMI) [Ratio] 26.29 kg/m2 Vivek Smith MD Work Phone: [facility] 03-05-2024 08:42-0400 Body temperature 97.11 [degF] Vivek Smith MD Work Phone: [facility] 03-05-2024 08:42-0400 Body weight 75.7 kg Vivek Smith MD Work Phone: [facility] 03-05-2024 08:42-0400 Diastolic blood pressure 69 mm[Hg] Vivek Smith MD Work Phone: [facility] 03-05-2024 08:42-0400 Heart rate 89 /min Vivek Smith MD Work Phone: [facility] 03-05-2024 08:42-0400 Respiratory rate 16 /min Vivek Smith MD Work Phone: [facility] 03-05-2024 08:42-0400 SaO2% (BldA) [Mass fraction] 99 % Vivek Smith MD Work Phone: [facility] 03-05-2024 08:42-0400 Systolic blood pressure 112 mm[Hg] Vivek Smith MD Work Phone: [facility] 02-14-2024 10:27-0400 Diastolic blood pressure 81 mm[Hg] Chair Natchez Work Phone: [facility] 02-14-2024 10:27-0400 Heart rate 79 /min Chair Danny Work Phone: [facility] 02-14-2024 10:27-0400 Respiratory rate 16 /min Chair Danny Work Phone: [facility] 02-14-2024 10:27-0400 SaO2% (BldA) [Mass fraction] 97 % Chair Danny Work Phone: [facility] 02-14-2024 10:27-0400 Systolic blood pressure 125 mm[Hg] Chair Danny Work Phone: [facility] 02-12-2024 08:47-0400 Body mass index (BMI) [Ratio] 26.04 kg/m2 Vivek Smith MD Work Phone: [facility] 02-12-2024 08:47-0400 Body temperature 97.59 [degF] Vivek Smith MD Work Phone: [facility] 02-12-2024 08:47-0400 Body weight 75 kg Vivek Smith MD Work Phone: [facility] 02-12-2024 08:47-0400 Diastolic blood pressure 76 mm[Hg] Vivek Smith MD Work Phone: [facility] 02-12-2024 08:47-0400 Heart rate 82 /min Vivek Smith MD Work Phone: [facility] 02-12-2024 08:47-0400 Respiratory rate 18 /min Vivek Smith MD Work Phone: [facility] 02-12-2024 08:47-0400 SaO2% (BldA) [Mass fraction] 99 % Vivek Smith MD Work Phone: [facility] 02-12-2024 08:47-0400 Systolic blood pressure 117 mm[Hg] Vivek Smith MD Work Phone: [facility] 01-23-2024 09:29-0400 Body height 169.7 cm Greta Wetzel PA-C Work Phone: [facility] 01-23-2024 09:29-0400 Body mass index (BMI) [Ratio] 26.15 kg/m2 Greta Rashard PA-C Work Phone: [facility] 01-23-2024 09:29-0400 Body temperature 97.11 [degF] Greta Rashard PA-C Work Phone: [facility] 01-23-2024 09:29-0400 Body weight 75.3 kg Greta Rashard PA-C Work Phone: [facility] 01-23-2024 09:29-0400 Diastolic blood pressure 81 mm[Hg] Greta Rashard PA-C Work Phone: [facility] 01-23-2024 09:29-0400 Heart rate 82 /min Greta Rashard PA-C Work Phone: [facility] 01-23-2024 09:29-0400 Respiratory rate 16 /min Greta Rashard PA-C Work Phone: [facility] 01-23-2024 09:29-0400 SaO2% (BldA) [Mass fraction] 100 % Greta Rashard PA-C Work Phone: [facility] 01-23-2024 09:29-0400 Systolic blood pressure 124 mm[Hg] Greta Rashard PA-C Work Phone: [facility] 01-05-2024 11:02-0400 Body temperature 97.7 [degF] Chair Danny Work Phone: [facility] 01-05-2024 11:02-0400 Diastolic blood pressure 73 mm[Hg] Chair Natchez Work Phone: [facility] 01-05-2024 11:02-0400 Heart rate 71 /min Chair Natchez Work Phone: [facility] 01-05-2024 11:02-0400 Respiratory rate 18 /min Chair Danny Work Phone: [facility] 01-05-2024 11:02-0400 SaO2% (BldA) [Mass fraction] 99 % Chair Natchez Work Phone: [facility] 01-05-2024 11:02-0400 Systolic blood pressure 108 mm[Hg] Chair Natchez Work Phone: [facility] 01-03-2024 09:37-0400 Body height 169.7 cm Greta Rashard PA-C Work Phone: [facility] 01-03-2024 09:37-0400 Body mass index (BMI) [Ratio] 26.18 kg/m2 Greta Rashard PA-C Work Phone: [facility] 01-03-2024 09:37-0400 Body temperature 97.39 [degF] Greta Rashard PA-C Work Phone: [facility] 01-03-2024 09:37-0400 Body weight 75.4 kg Greta Rashard PA-C Work Phone: [facility] 01-03-2024 09:37-0400 Diastolic blood pressure 84 mm[Hg] Greta Rashard PA-C Work Phone: [facility] 01-03-2024 09:37-0400 Heart rate 75 /min Greta Rashard PA-C Work Phone: [facility] 01-03-2024 09:37-0400 Respiratory rate 16 /min Greta Rashard PA-C Work Phone: [facility] 01-03-2024 09:37-0400 SaO2% (BldA) [Mass fraction] 99 % Greta Rashard PA-C Work Phone: [facility] 01-03-2024 09:37-0400 Systolic blood pressure 128 mm[Hg] Greta Rashard PA-C Work Phone: [facility] 12-13-2023 12:05-0400 Body temperature 98.2 [degF] Chair Danny Work Phone: [facility] 12-13-2023 12:05-0400 Diastolic blood pressure 78 mm[Hg] Chair Danny Work Phone: [facility] 12-13-2023 12:05-0400 Heart rate 72 /min Chair Danny Work Phone: [facility] 12-13-2023 12:05-0400 Respiratory rate 18 /min Chair Danny Work Phone: [facility] 12-13-2023 12:05-0400 SaO2% (BldA) [Mass fraction] 98 % Chair Danny Work Phone: [facility] 12-13-2023 12:05-0400 Systolic blood pressure 110 mm[Hg] Chair Danny Work Phone: [facility] 12-11-2023 10:04-0400 Body mass index (BMI) [Ratio] 25.87 kg/m2 Vivek Smith MD Work Phone: [facility] 12-11-2023 10:04-0400 Body temperature 97.9 [degF] Vivek Smith MD Work Phone: [facility] 12-11-2023 10:04-0400 Body weight 74.5 kg Vivek Smith MD Work Phone: [facility] 12-11-2023 10:04-0400 Diastolic blood pressure 69 mm[Hg] Vivek Smith MD Work Phone: [facility] 12-11-2023 10:04-0400 Heart rate 84 /min Vivek Smith MD Work Phone: [facility] 12-11-2023 10:04-0400 Respiratory rate 16 /min Vivek Smith MD Work Phone: [facility] 12-11-2023 10:04-0400 SaO2% (BldA) [Mass fraction] 99 % Vivek Smith MD Work Phone: [facility] 12-11-2023 10:04-0400 Systolic blood pressure 107 mm[Hg] Vivek Smith MD Work Phone: [facility] 11-22-2023 10:29-0400 Body temperature 98.2 [degF] Chair Natchez Work Phone: [facility] 11-22-2023 10:29-0400 Diastolic blood pressure 72 mm[Hg] Chair Danny Work Phone: [facility] 11-22-2023 10:29-0400 Heart rate 75 /min Chair Natchez Work Phone: [facility] 11-22-2023 10:29-0400 Respiratory rate 18 /min Chair Natchez Work Phone: [facility] 11-22-2023 10:29-0400 SaO2% (BldA) [Mass fraction] 98 % Chair Natchez Work Phone: [facility] 11-22-2023 10:29-0400 Systolic blood pressure 115 mm[Hg] Chair Danny Work Phone: [facility] 11-20-2023 08:14-0400 Body height 169.7 cm Vivek Smith MD Work Phone: [facility] 11-20-2023 08:14-0400 Body mass index (BMI) [Ratio] 25.55 kg/m2 Vivek Smith MD Work Phone: [facility] 11-20-2023 08:14-0400 Body temperature 97.3 [degF] Vivek Smith MD Work Phone: [facility] 11-20-2023 08:14-0400 Body weight 73.57 kg Vivek Smith MD Work Phone: [facility] 11-20-2023 08:14-0400 Diastolic blood pressure 77 mm[Hg] Vivek Smith MD Work Phone: [facility] 11-20-2023 08:14-0400 Heart rate 77 /min Vivek Smith MD Work Phone: [facility] 11-20-2023 08:14-0400 Respiratory rate 16 /min Vivek Smith MD Work Phone: [facility] 11-20-2023 08:14-0400 SaO2% (BldA) [Mass fraction] 99 % Vivek Smith MD Work Phone: [facility] 11-20-2023 08:14-0400 Systolic blood pressure 134 mm[Hg] Vivek Smith MD Work Phone: [facility] 11-02-2023 12:34-0400 Body temperature 97.59 [degF] Chair Danny Work Phone: [facility] 11-02-2023 12:34-0400 Diastolic blood pressure 61 mm[Hg] Chair Danny Work Phone: [facility] 11-02-2023 12:34-0400 Heart rate 86 /min Chair Danny Work Phone: [facility] 11-02-2023 12:34-0400 Respiratory rate 18 /min Chair Natchez Work Phone: [facility] 11-02-2023 12:34-0400 SaO2% (BldA) [Mass fraction] 98 % Chair Natchez Work Phone: [facility] 11-02-2023 12:34-0400 Systolic blood pressure 104 mm[Hg] Chair Danny Work Phone: [facility] 10-31-2023 10:34-0400 Body height 169.7 cm Grace Bess MD Work Phone: [facility] 10-31-2023 10:34-0400 Body mass index (BMI) [Ratio] 24.38 kg/m2 Grace Bess MD Work Phone: [facility] 10-31-2023 10:34-0400 Body temperature 97.2 [degF] Grace Bess MD Work Phone: [facility] 10-31-2023 10:34-0400 Body weight 70.2 kg Grace Bess MD Work Phone: [facility] 10-31-2023 10:34-0400 Diastolic blood pressure 81 mm[Hg] Grace Bess MD Work Phone: [facility] 10-31-2023 10:34-0400 Heart rate 75 /min Grace Bess MD Work Phone: [facility] 10-31-2023 10:34-0400 Respiratory rate 16 /min Grace Bess MD Work Phone: [facility] 10-31-2023 10:34-0400 SaO2% (BldA) [Mass fraction] 100 % Grace Bess MD Work Phone: [facility] 10-31-2023 10:34-0400 Systolic blood pressure 118 mm[Hg] Grace Bess MD Work Phone: [facility] 10-13-2023 11:35-0400 Body temperature 97.59 [degF] Chair Natchez Work Phone: [facility] 10-13-2023 11:35-0400 Diastolic blood pressure 71 mm[Hg] Chair Natchez Work Phone: [facility] 10-13-2023 11:35-0400 Heart rate 83 /min Chair Natchez Work Phone: [facility] 10-13-2023 11:35-0400 Respiratory rate 16 /min Chair Natchez Work Phone: [facility] 10-13-2023 11:35-0400 SaO2% (BldA) [Mass fraction] 100 % Chair Natchez Work Phone: [facility] 10-13-2023 11:35-0400 Systolic blood pressure 107 mm[Hg] Chair Natchez Work Phone: [facility] 10-11-2023 10:02-0400 Diastolic blood pressure 67 mm[Hg] Chair Danny Work Phone: [facility] Comment on above: Rechecked in tx room 10-11-2023 10:02-0400 Systolic blood pressure 100 mm[Hg] Chair Danny Work Phone: [facility] Comment on above: Rechecked in tx room 10-11-2023 09:27-0400 Body height 169.7 cm Greta Rashard PA-C Work Phone: [facility] 10-11-2023 09:27-0400 Body mass index (BMI) [Ratio] 24.48 kg/m2 Greta Rashard PA-C Work Phone: [facility] 10-11-2023 09:27-0400 Body temperature 98.01 [degF] Greta Rashard PA-C Work Phone: [facility] 10-11-2023 09:27-0400 Body weight 70.5 kg Greta Rashard PA-C Work Phone: [facility] 10-11-2023 09:27-0400 Diastolic blood pressure 56 mm[Hg] Greta Rashard PA-C Work Phone: [facility] 10-11-2023 09:27-0400 Heart rate 87 /min Greta Rashard PA-C Work Phone: [facility] 10-11-2023 09:27-0400 Respiratory rate 16 /min Greta Rashard PA-C Work Phone: [facility] 10-11-2023 09:27-0400 SaO2% (BldA) [Mass fraction] 100 % Greta Rashard PA-C Work Phone: [facility] 10-11-2023 09:27-0400 Systolic blood pressure 85 mm[Hg] Greta Rashard PA-C Work Phone: [facility] 10-03-2023 11:15-0400 Body height 169.7 cm Greta Rashard PA-C Work Phone: [facility] 10-03-2023 11:15-0400 Body mass index (BMI) [Ratio] 25.56 kg/m2 Greta Rashard PA-C Work Phone: [facility] 10-03-2023 11:15-0400 Body temperature 97.5 [degF] Greta Rashard PA-C Work Phone: [facility] 10-03-2023 11:15-0400 Body weight 73.6 kg Greta Rashard PA-C Work Phone: [facility] 10-03-2023 11:15-0400 Diastolic blood pressure 53 mm[Hg] Greta Rashard PA-C Work Phone: [facility] 10-03-2023 11:15-0400 Heart rate 81 /min Greta Rashard PA-C Work Phone: [facility] 10-03-2023 11:15-0400 Respiratory rate 16 /min Greta Rashard PA-C Work Phone: [facility] 10-03-2023 11:15-0400 SaO2% (BldA) [Mass fraction] 98 % Greta Rashard PA-C Work Phone: [facility] 10-03-2023 11:15-0400 Systolic blood pressure 83 mm[Hg] Greta Rashard PA-C Work Phone: [facility] 09-15-2023 13:05-0400 Body temperature 97.9 [degF] Chair Natchez Work Phone: [facility] 09-15-2023 13:05-0400 Diastolic blood pressure 68 mm[Hg] Chair Danny Work Phone: [facility] 09-15-2023 13:05-0400 Heart rate 77 /min Chair Danny Work Phone: [facility] 09-15-2023 13:05-0400 Respiratory rate 18 /min Chair Natchez Work Phone: [facility] 09-15-2023 13:05-0400 SaO2% (BldA) [Mass fraction] 98 % Chair Danny Work Phone: [facility] 09-15-2023 13:05-0400 Systolic blood pressure 114 mm[Hg] Chair Danny Work Phone: [facility] 09-13-2023 11:29-0400 Body height 169.7 cm Yordy Moncada APRN.ORTHOPEDIC SPECIALIST Work Phone: [facility] 09-13-2023 11:29-0400 Body mass index (BMI) [Ratio] 24.76 kg/m2 Yordy Moncada APRN.ORTHOPEDIC SPECIALIST Work Phone: [facility] 09-13-2023 11:29-0400 Body temperature 97.59 [degF] Yordy Moncada APRN.ORTHOPEDIC SPECIALIST Work Phone: [facility] 09-13-2023 11:29-0400 Body weight 71.3 kg Yordy Moncada APRN.ORTHOPEDIC SPECIALIST Work Phone: [facility] 09-13-2023 11:29-0400 Diastolic blood pressure 63 mm[Hg] Yordy Moncada APRN.ORTHOPEDIC SPECIALIST Work Phone: [facility] 09-13-2023 11:29-0400 Heart rate 75 /min Yordy Moncada APRN.ORTHOPEDIC SPECIALIST Work Phone: [facility] 09-13-2023 11:29-0400 Respiratory rate 16 /min Yordy Moncada APRN.ORTHOPEDIC SPECIALIST Work Phone: [facility] 09-13-2023 11:29-0400 SaO2% (BldA) [Mass fraction] 99 % Yordy Moncada APRN.ORTHOPEDIC SPECIALIST Work Phone: [facility] 09-13-2023 11:29-0400 Systolic blood pressure 106 mm[Hg] Yordy Moncada APRN.ORTHOPEDIC SPECIALIST Work Phone: [facility] 08-23-2023 10:36-0400 Body height 169.7 cm Grace Bess MD Work Phone: [facility] 08-23-2023 10:36-0400 Body temperature 97.59 [degF] Grace Bess MD Work Phone: [facility] 08-23-2023 10:36-0400 Body weight 72.5 kg Grace Bess MD Work Phone: [facility] 08-23-2023 10:36-0400 Diastolic blood pressure 72 mm[Hg] Grace Bess MD Work Phone: [facility] 08-23-2023 10:36-0400 Heart rate 88 /min Grace Bess MD Work Phone: [facility] 08-23-2023 10:36-0400 Respiratory rate 16 /min Grace Bess MD Work Phone: [facility] 08-23-2023 10:36-0400 SaO2% (BldA) [Mass fraction] 98 % Grace Bess MD Work Phone: [facility] 08-23-2023 10:36-0400 Systolic blood pressure 108 mm[Hg] Grace Bess MD Work Phone: [facility] 08-04-2023 12:40-0400 Body temperature 97.5 [degF] Chair Danny Work Phone: [facility] 08-04-2023 12:40-0400 Diastolic blood pressure 64 mm[Hg] Chair Natchez Work Phone: [facility] 08-04-2023 12:40-0400 Heart rate 82 /min Chair Danny Work Phone: [facility] 08-04-2023 12:40-0400 Respiratory rate 16 /min Chair Danny Work Phone: [facility] 08-04-2023 12:40-0400 SaO2% (BldA) [Mass fraction] 98 % Chair Natchez Work Phone: [facility] 08-04-2023 12:40-0400 Systolic blood pressure 95 mm[Hg] Chair Danny Work Phone: [facility] 08-02-2023 10:32-0400 Body height 169.7 cm Grace Bess MD Work Phone: [facility] 08-02-2023 10:32-0400 Body temperature 97.5 [degF] Grace Bess MD Work Phone: [facility] 08-02-2023 10:32-0400 Body weight 71.2 kg Grace Bess MD Work Phone: [facility] 08-02-2023 10:32-0400 Diastolic blood pressure 68 mm[Hg] Grace Bess MD Work Phone: [facility] 08-02-2023 10:32-0400 Heart rate 85 /min Grace Bess MD Work Phone: [facility] 08-02-2023 10:32-0400 Respiratory rate 16 /min Grace Bess MD Work Phone: [facility] 08-02-2023 10:32-0400 SaO2% (BldA) [Mass fraction] 100 % Grace Bess MD Work Phone: [facility] 08-02-2023 10:32-0400 Systolic blood pressure 96 mm[Hg] Grace Bess MD Work Phone: [facility] 07-21-2023 11:57-0500 Body temperature 98.1 [degF] Chair Natchez Work Phone: [facility] 07-21-2023 11:57-0500 Diastolic blood pressure 65 mm[Hg] Chair Danny Work Phone: [facility] 07-21-2023 11:57-0500 Heart rate 78 /min Chair Natchez Work Phone: [facility] 07-21-2023 11:57-0500 Respiratory rate 18 /min Chair Natchez Work Phone: [facility] 07-21-2023 11:57-0500 SaO2% (BldA) [Mass fraction] 100 % Chair Natchez Work Phone: [facility] 07-21-2023 11:57-0500 Systolic blood pressure 96 mm[Hg] Chair Natchez Work Phone: [facility] 07-19-2023 10:14-0500 Body height 169.7 cm Yordy Moncada APRN.ORTHOPEDIC SPECIALIST Work Phone: [facility] 07-19-2023 10:14-0500 Body temperature 97.59 [degF] Yordy Moncada APRN.ORTHOPEDIC SPECIALIST Work Phone: [facility] 07-19-2023 10:14-0500 Body weight 71.5 kg Yordy Moncada APRN.ORTHOPEDIC SPECIALIST Work Phone: [facility] 07-19-2023 10:14-0500 Diastolic blood pressure 58 mm[Hg] Yordy Moncada APRN.ORTHOPEDIC SPECIALIST Work Phone: [facility] 07-19-2023 10:14-0500 Heart rate 67 /min Yordy Moncada APRN.ORTHOPEDIC SPECIALIST Work Phone: [facility] 07-19-2023 10:14-0500 Respiratory rate 16 /min Yordy Moncada APRN.ORTHOPEDIC SPECIALIST Work Phone: [facility] 07-19-2023 10:14-0500 SaO2% (BldA) [Mass fraction] 99 % Yordy Moncada APRN.ORTHOPEDIC SPECIALIST Work Phone: [facility] 07-19-2023 10:14-0500 Systolic blood pressure 100 mm[Hg] Yordy Moncada APRN.ORTHOPEDIC SPECIALIST Work Phone: [facility] 07-07-2023 12:40-0500 Body temperature 97.7 [degF] Chair Danny Work Phone: [facility] 07-07-2023 12:40-0500 Diastolic blood pressure 69 mm[Hg] Chair Natchez Work Phone: [facility] 07-07-2023 12:40-0500 Heart rate 75 /min Chair Natchez Work Phone: [facility] 07-07-2023 12:40-0500 Respiratory rate 18 /min Chair Natchez Work Phone: [facility] 07-07-2023 12:40-0500 SaO2% (BldA) [Mass fraction] 98 % Chair Natchez Work Phone: [facility] 07-07-2023 12:40-0500 Systolic blood pressure 103 mm[Hg] Chair Danny Work Phone: [facility] 07-05-2023 10:46-0500 Body height 169.7 cm Yordy Moncada APRN.ORTHOPEDIC SPECIALIST Work Phone: [facility] 07-05-2023 10:46-0500 Body temperature 97 [degF] Yordy Moncada APRN.ORTHOPEDIC SPECIALIST Work Phone: [facility] 07-05-2023 10:46-0500 Body weight 72.3 kg Yordy Moncada APRN.ORTHOPEDIC SPECIALIST Work Phone: [facility] 07-05-2023 10:46-0500 Diastolic blood pressure 68 mm[Hg] Yordy Moncada APRN.ORTHOPEDIC SPECIALIST Work Phone: [facility] 07-05-2023 10:46-0500 Heart rate 92 /min Yordy Moncada APRN.ORTHOPEDIC SPECIALIST Work Phone: [facility] 07-05-2023 10:46-0500 Respiratory rate 16 /min Yordy Moncada APRN.ORTHOPEDIC SPECIALIST Work Phone: [facility] 07-05-2023 10:46-0500 SaO2% (BldA) [Mass fraction] 97 % Yordy Moncada APRN.ORTHOPEDIC SPECIALIST Work Phone: [facility] 07-05-2023 10:46-0500 Systolic blood pressure 96 mm[Hg] Yordy Moncada APRN.ORTHOPEDIC SPECIALIST Work Phone: [facility] 06-23-2023 10:28-0500 Body temperature 97.7 [degF] Chair Natchez Work Phone: [facility] 06-23-2023 10:28-0500 Diastolic blood pressure 76 mm[Hg] Chair Natchez Work Phone: [facility] 06-23-2023 10:28-0500 Heart rate 83 /min Chair Natchez Work Phone: [facility] 06-23-2023 10:28-0500 Respiratory rate 16 /min Chair Danny Work Phone: [facility] 06-23-2023 10:28-0500 SaO2% (BldA) [Mass fraction] 100 % Chair [place] Work Phone: [facility] 06-23-2023 10:28-0500 Systolic blood pressure 117 mm[Hg] Chair Danny Work Phone: [facility] 05-05-2023 12:59-0500 Body height 171.4 cm Grace Bess MD Work Phone: [facility] 05-05-2023 12:59-0500 Body temperature 97 [degF] Grace Bess MD Work Phone: [facility] 05-05-2023 12:59-0500 Body weight 73.9 kg Grace Bess MD Work Phone: [facility] 05-05-2023 12:59-0500 Diastolic blood pressure 80 mm[Hg] Grace Bess MD Work Phone: [facility] 05-05-2023 12:59-0500 Heart rate 90 /min Grace Bess MD Work Phone: [facility] 05-05-2023 12:59-0500 Respiratory rate 20 /min Grace Bess MD Work Phone: [facility] 05-05-2023 12:59-0500 SaO2% (BldA) [Mass fraction] 100 % Grace Bess MD Work Phone: [facility] 05-05-2023 12:59-0500 Systolic blood pressure 137 mm[Hg] Grace Bess MD Work Phone: [facility] 04-05-2023 13:49-0500 Body height 171.4 cm Yordy Moncada TEACHING FELLOW.ORTHOPEDIC SPECIALIST Work Phone: [facility] 04-05-2023 13:49-0500 Body temperature 97.59 [degF] Yordy Moncada TEACHING FELLOW.ORTHOPEDIC SPECIALIST Work Phone: [facility] 04-05-2023 13:49-0500 Body weight 77.84 kg Yordy Moncada TEACHING FELLOW.ORTHOPEDIC SPECIALIST Work Phone: [facility] 04-05-2023 13:49-0500 Diastolic blood pressure 69 mm[Hg] Yordy Moncada TEACHING FELLOW.ORTHOPEDIC SPECIALIST Work Phone: [facility] 04-05-2023 13:49-0500 Heart rate 88 /min Yordy Moncada TEACHING FELLOW.ORTHOPEDIC SPECIALIST Work Phone: [facility] 04-05-2023 13:49-0500 Respiratory rate 16 /min Yordy Moncada TEACHING FELLOW.ORTHOPEDIC SPECIALIST Work Phone: [facility] 04-05-2023 13:49-0500 SaO2% (BldA) [Mass fraction] 99 % Yordy Moncada TEACHING FELLOW.ORTHOPEDIC SPECIALIST Work Phone: [facility] 04-05-2023 13:49-0500 Systolic blood pressure 100 mm[Hg] Yordy Moncada TEACHING FELLOW.ORTHOPEDIC SPECIALIST Work Phone: [facility] 03-30-2023 13:19-0500 Diastolic blood pressure 67 mm[Hg] Greta Rashard PA-C Work Phone: [facility] 03-30-2023 13:19-0500 Systolic blood pressure 116 mm[Hg] Greta Rashard PA-C Work Phone: [facility] 03-30-2023 13:15-0500 Body height 171.4 cm Greta Rashard PA-C Work Phone: [facility] 03-30-2023 13:15-0500 Body temperature 97.59 [degF] Greta Rashard PA-C Work Phone: [facility] 03-30-2023 13:15-0500 Body weight 77.2 kg Greta Cardenaser PA-C Work Phone: [facility] 03-30-2023 13:15-0500 Heart rate 90 /min Greta Rashard PA-C Work Phone: [facility] 03-30-2023 13:15-0500 Respiratory rate 16 /min Greta Rashard PA-C Work Phone: [facility] 03-30-2023 13:15-0500 SaO2% (BldA) [Mass fraction] 99 % Greta Cardenaser PA-C Work Phone: [facility] 03-08-2023 13:32-0400 Body height 171.4 cm Grace Bess MD Work Phone: [facility] 03-08-2023 13:32-0400 Body temperature 97.59 [degF] Grace Bess MD Work Phone: [facility] 03-08-2023 13:32-0400 Body weight 78.02 kg Grace Bess MD Work Phone: [facility] 03-08-2023 13:32-0400 Diastolic blood pressure 71 mm[Hg] Grace Bess MD Work Phone: [facility] 03-08-2023 13:32-0400 Heart rate 90 /min Grace Bess MD Work Phone: [facility] 03-08-2023 13:32-0400 Respiratory rate 16 /min Grace Bess MD Work Phone: [facility] 03-08-2023 13:32-0400 SaO2% (BldA) [Mass fraction] 100 % Grace Bess MD Work Phone: [facility] 03-08-2023 13:32-0400 Systolic blood pressure 104 mm[Hg] Grace Bess MD Work Phone: [facility] 02-08-2023 12:46-0400 Body height 171.4 cm Yordy Moncada TEACHING FELLOW.ORTHOPEDIC SPECIALIST Work Phone: [facility] 02-08-2023 12:46-0400 Body temperature 97.5 [degF] Yordy Moncada TEACHING FELLOW.ORTHOPEDIC SPECIALIST Work Phone: [facility] 02-08-2023 12:46-0400 Body weight 81.1 kg Yordy Moncada TEACHING FELLOW.ORTHOPEDIC SPECIALIST Work Phone: [facility] 02-08-2023 12:46-0400 Diastolic blood pressure 63 mm[Hg] Yordy Moncada TEACHING FELLOW.ORTHOPEDIC SPECIALIST Work Phone: [facility] 02-08-2023 12:46-0400 Heart rate 86 /min Yordy Moncada TEACHING FELLOW.ORTHOPEDIC SPECIALIST Work Phone: [facility] 02-08-2023 12:46-0400 Respiratory rate 16 /min Yordy Moncada TEACHING FELLOW.ORTHOPEDIC SPECIALIST Work Phone: [facility] 02-08-2023 12:46-0400 SaO2% (BldA) [Mass fraction] 100 % Yordy Moncada TEACHING FELLOW.ORTHOPEDIC SPECIALIST Work Phone: [facility] 02-08-2023 12:46-0400 Systolic blood pressure 117 mm[Hg] Yordy Moncada TEACHING FELLOW.ORTHOPEDIC SPECIALIST Work Phone: [facility] 02-01-2023 11:16-0400 Body height 171.4 cm Grace Bess MD Work Phone: [facility] 02-01-2023 11:16-0400 Body temperature 97.3 [degF] Grace Bess MD Work Phone: [facility] 02-01-2023 11:16-0400 Body weight 79.74 kg Grace Bess MD Work Phone: [facility] 02-01-2023 11:16-0400 Diastolic blood pressure 70 mm[Hg] Grace Bess MD Work Phone: [facility] 02-01-2023 11:16-0400 Heart rate 81 /min Grace Bess MD Work Phone: [facility] 02-01-2023 11:16-0400 Respiratory rate 16 /min Grace Bess MD Work Phone: [facility] 02-01-2023 11:16-0400 SaO2% (BldA) [Mass fraction] 99 % Grace Bess MD Work Phone: [facility] 02-01-2023 11:16-0400 Systolic blood pressure 104 mm[Hg] Grace Bess MD Work Phone: [facility] 01-04-2023 13:00-0400 Body height 171.4 cm Grace Bses MD Work Phone: [facility] 01-04-2023 13:00-0400 Body temperature 97.2 [degF] Grace Bess MD Work Phone: [facility] 01-04-2023 13:00-0400 Body weight 82.74 kg Grace Bess MD Work Phone: [facility] 01-04-2023 13:00-0400 Diastolic blood pressure 63 mm[Hg] Grace Bess MD Work Phone: [facility] 01-04-2023 13:00-0400 Heart rate 78 /min Grace Bess MD Work Phone: [facility] 01-04-2023 13:00-0400 Respiratory rate 18 /min Grace Bess MD Work Phone: [facility] 01-04-2023 13:00-0400 SaO2% (BldA) [Mass fraction] 100 % Grace Bess MD Work Phone: [facility] 01-04-2023 13:00-0400 Systolic blood pressure 104 mm[Hg] Grace Bess MD Work Phone: [facility] 12-21-2022 09:40-0400 Body height 171.4 cm Greta Rashard PA-C Work Phone: [facility] 12-21-2022 09:40-0400 Body temperature 97.11 [degF] Greta Rashard PA-C Work Phone: [facility] 12-21-2022 09:40-0400 Body weight 82.64 kg Greta Rashard PA-C Work Phone: [facility] 12-21-2022 09:40-0400 Diastolic blood pressure 68 mm[Hg] Greta Rashard PA-C Work Phone: [facility] 12-21-2022 09:40-0400 Heart rate 94 /min Greta Rashard PA-C Work Phone: [facility] 12-21-2022 09:40-0400 Respiratory rate 20 /min Greta Rashard PA-C Work Phone: [facility] 12-21-2022 09:40-0400 SaO2% (BldA) [Mass fraction] 100 % Greta Rashard PA-C Work Phone: [facility] 12-21-2022 09:40-0400 Systolic blood pressure 103 mm[Hg] Greta Rashard PA-C Work Phone: [facility] 12-15-2022 16:25-0400 Diastolic blood pressure 74 mm[Hg] II Giovanni Salinas Work Phone: [facility] 12-15-2022 16:25-0400 Heart rate 67 /min II Giovanni Salinas Work Phone: [facility] 12-15-2022 16:25-0400 Respiratory rate 18 /min II Giovanni Salinas Work Phone: [facility] 12-15-2022 16:25-0400 SaO2% (BldA) [Mass fraction] 100 % II Giovanni Salinas Work Phone: [facility] 12-15-2022 16:25-0400 Systolic blood pressure 105 mm[Hg] II Giovanni Salinas Work Phone: [facility] 12-15-2022 15:19-0400 Body height 170.18 cm II Giovanni Salinas Work Phone: [facility] 12-15-2022 15:19-0400 Body temperature 97.5 [degF] II Giovanni Salinas Work Phone: [facility] 12-15-2022 15:19-0400 Body weight 85.9 kg II Giovanni Salinas Work Phone: [facility] 12-05-2022 11:14-0400 Body height 171.4 cm Greta Rashard PA-C Work Phone: [facility] 12-05-2022 11:14-0400 Body temperature 97 [degF] Greta Rashard PA-C Work Phone: [facility] 12-05-2022 11:14-0400 Body weight 83.55 kg Greta Rashard PA-C Work Phone: [facility] 12-05-2022 11:14-0400 Diastolic blood pressure 51 mm[Hg] Greta Rashard PA-C Work Phone: [facility] 12-05-2022 11:14-0400 Heart rate 97 /min Greta Rashard PA-C Work Phone: [facility] 12-05-2022 11:14-0400 Respiratory rate 16 /min Greta Rashard PA-C Work Phone: [facility] 12-05-2022 11:14-0400 SaO2% (BldA) [Mass fraction] 100 % Greta Rashard PA-C Work Phone: [facility] 12-05-2022 11:14-0400 Systolic blood pressure 97 mm[Hg] Greta Rashard PA-C Work Phone: [facility] 11-30-2022 10:33-0400 Body height 171.4 cm Grace Bess MD Work Phone: [facility] 11-30-2022 10:33-0400 Body temperature 96.69 [degF] Grace Bess MD Work Phone: [facility] 11-30-2022 10:33-0400 Body weight 83.92 kg Grace Bess MD Work Phone: [facility] 11-30-2022 10:33-0400 Diastolic blood pressure 67 mm[Hg] Grace Bess MD Work Phone: [facility] 11-30-2022 10:33-0400 Heart rate 68 /min Grace Bess MD Work Phone: [facility] 11-30-2022 10:33-0400 Respiratory rate 16 /min Grace Bess MD Work Phone: [facility] 11-30-2022 10:33-0400 SaO2% (BldA) [Mass fraction] 98 % Grace Bess MD Work Phone: [facility] 11-30-2022 10:33-0400 Systolic blood pressure 117 mm[Hg] Grace Bess MD Work Phone: [facility] 11-23-2022 13:45-0400 Body height 169.8 cm Greta Rashard PA-C Work Phone: [facility] 11-23-2022 13:45-0400 Body temperature 97.3 [degF] Greta Rashard PA-C Work Phone: [facility] 11-23-2022 13:45-0400 Body weight 83.64 kg Greta Rashard PA-C Work Phone: [facility] 11-23-2022 13:45-0400 Diastolic blood pressure 64 mm[Hg] Greta Rashard PA-C Work Phone: [facility] 11-23-2022 13:45-0400 Heart rate 92 /min Greta Rashard PA-C Work Phone: [facility] 11-23-2022 13:45-0400 Respiratory rate 16 /min Greta Cardenaser PA-C Work Phone: [facility] 11-23-2022 13:45-0400 SaO2% (BldA) [Mass fraction] 100 % Greta Rashard PA-C Work Phone: [facility] 11-23-2022 13:45-0400 Systolic blood pressure 106 mm[Hg] Greta Rashard PA-C Work Phone: [facility] 11-10-2022 09:41-0400 Body height 169.8 cm Grace Bess MD Work Phone: [facility] 11-10-2022 09:41-0400 Body temperature 97.3 [degF] Grace Bess MD Work Phone: [facility] 11-10-2022 09:41-0400 Body weight 82.64 kg Grace Bess MD Work Phone: [facility] 11-10-2022 09:41-0400 Diastolic blood pressure 77 mm[Hg] Grace Bess MD Work Phone: [facility] 11-10-2022 09:41-0400 Heart rate 80 /min Grace Bess MD Work Phone: [facility] 11-10-2022 09:41-0400 Respiratory rate 16 /min Grace Bess MD Work Phone: [facility] 11-10-2022 09:41-0400 SaO2% (BldA) [Mass fraction] 99 % Grace Bess MD Work Phone: [facility] 11-10-2022 09:41-0400 Systolic blood pressure 110 mm[Hg] Grace Bess MD Work Phone: [facility] 09-29-2022 10:19-0400 Body height 169.8 cm Grace Bess MD Work Phone: [facility] 09-29-2022 10:19-0400 Body temperature 97.59 [degF] Grace Bess MD Work Phone: [facility] 09-29-2022 10:19-0400 Body weight 90.27 kg Grace Bess MD Work Phone: [facility] 09-29-2022 10:19-0400 Diastolic blood pressure 74 mm[Hg] Grace Bess MD Work Phone: [facility] 09-29-2022 10:19-0400 Heart rate 69 /min Grace Bess MD Work Phone: [facility] 09-29-2022 10:19-0400 Respiratory rate 16 /min Grace Bess MD Work Phone: [facility] 09-29-2022 10:19-0400 SaO2% (BldA) [Mass fraction] 97 % Grace Bess MD Work Phone: [facility] 09-29-2022 10:19-0400 Systolic blood pressure 140 mm[Hg] Grace Bess MD Work Phone: [facility] 08-02-2022 10:20-0400 Body height 169.8 cm Grace Bess MD Work Phone: [facility] 08-02-2022 10:20-0400 Body temperature 97.59 [degF] Grace Bess MD Work Phone: [facility] 08-02-2022 10:20-0400 Body weight 90.81 kg Grace Bess MD Work Phone: [facility] 08-02-2022 10:20-0400 Diastolic blood pressure 74 mm[Hg] Grace Bess MD Work Phone: [facility] 08-02-2022 10:20-0400 Heart rate 75 /min Grace Bess MD Work Phone: [facility] 08-02-2022 10:20-0400 Respiratory rate 16 /min Grace Bess MD Work Phone: [facility] 08-02-2022 10:20-0400 SaO2% (BldA) [Mass fraction] 99 % Grace Bess MD Work Phone: [facility] 08-02-2022 10:20-0400 Systolic blood pressure 145 mm[Hg] Grace Bess MD Work Phone: [facility] 06-29-2022 10:37-0500 Body height 169.8 cm Grace Bess MD Work Phone: [facility] 06-29-2022 10:37-0500 Body temperature 97.59 [degF] Grace Bess MD Work Phone: [facility] 06-29-2022 10:37-0500 Body weight 89.45 kg Grace Bess MD Work Phone: [facility] 06-29-2022 10:37-0500 Diastolic blood pressure 77 mm[Hg] Grace Bess MD Work Phone: [facility] 06-29-2022 10:37-0500 Heart rate 81 /min Grace Bess MD Work Phone: [facility] 06-29-2022 10:37-0500 Respiratory rate 18 /min Grace Bess MD Work Phone: [facility] 06-29-2022 10:37-0500 SaO2% (BldA) [Mass fraction] 99 % Grace Bess MD Work Phone: [facility] 06-29-2022 10:37-0500 Systolic blood pressure 137 mm[Hg] Grace Bess MD Work Phone: [facility] 05-11-2022 09:23-0500 Body height 169.8 cm Grace Bess MD Work Phone: [facility] 05-11-2022 09:23-0500 Body temperature 97.5 [degF] Grace Bess MD Work Phone: [facility] 05-11-2022 09:23-0500 Body weight 88.72 kg Grace Bess MD Work Phone: [facility] 05-11-2022 09:23-0500 Diastolic blood pressure 70 mm[Hg] Grace Bess MD Work Phone: [facility] 05-11-2022 09:23-0500 Heart rate 76 /min Grace Bess MD Work Phone: [facility] 05-11-2022 09:23-0500 Respiratory rate 16 /min Grace Bess MD Work Phone: [facility] 05-11-2022 09:23-0500 SaO2% (BldA) [Mass fraction] 98 % Grace Bess MD Work Phone: [facility] 05-11-2022 09:23-0500 Systolic blood pressure 130 mm[Hg] Grace Bess MD Work Phone: [facility] 04-27-2022 08:50-0500 Body height 169.8 cm Yordy Moncada APRN.ORTHOPEDIC SPECIALIST Work Phone: [facility] 04-27-2022 08:50-0500 Body temperature 97.39 [degF] Yordy Moncada APRN.ORTHOPEDIC SPECIALIST Work Phone: [facility] 04-27-2022 08:50-0500 Body weight 87.64 kg Yordy Moncada APRN.ORTHOPEDIC SPECIALIST Work Phone: [facility] 04-27-2022 08:50-0500 Diastolic blood pressure 68 mm[Hg] Yordy Moncada APRN.ORTHOPEDIC SPECIALIST Work Phone: [facility] 04-27-2022 08:50-0500 Heart rate 79 /min Yordy Moncada APRN.ORTHOPEDIC SPECIALIST Work Phone: [facility] 04-27-2022 08:50-0500 Respiratory rate 16 /min Yordy Moncada APRN.ORTHOPEDIC SPECIALIST Work Phone: [facility] 04-27-2022 08:50-0500 SaO2% (BldA) [Mass fraction] 99 % Yordy Moncada APRN.ORTHOPEDIC SPECIALIST Work Phone: [facility] 04-27-2022 08:50-0500 Systolic blood pressure 136 mm[Hg] Yordy Moncada APRN.ORTHOPEDIC SPECIALIST Work Phone: [facility] 04-06-2022 11:57-0500 Body height 169.8 cm Greta Rashard PA-C Work Phone: [facility] 04-06-2022 11:57-0500 Body temperature 97.3 [degF] Greta Rashard PA-C Work Phone: [facility] 04-06-2022 11:57-0500 Body weight 88.81 kg Greta Rashard PA-C Work Phone: [facility] 04-06-2022 11:57-0500 Diastolic blood pressure 73 mm[Hg] Greta Rashard PA-C Work Phone: [facility] 04-06-2022 11:57-0500 Heart rate 76 /min Greta Rashard PA-C Work Phone: [facility] 04-06-2022 11:57-0500 Respiratory rate 16 /min Greta Rashard PA-C Work Phone: [facility] 04-06-2022 11:57-0500 SaO2% (BldA) [Mass fraction] 100 % Greta Rashard PA-C Work Phone: [facility] 04-06-2022 11:57-0500 Systolic blood pressure 125 mm[Hg] Greta Rashard PA-C Work Phone: [facility] 03-30-2022 10:46-0500 Body height 169.8 cm Greta Rashard PA-C Work Phone: [facility] 03-30-2022 10:46-0500 Body temperature 97.81 [degF] Greta Rashard PA-C Work Phone: [facility] 03-30-2022 10:46-0500 Body weight 87.64 kg Greta Rashard PA-C Work Phone: [facility] 03-30-2022 10:46-0500 Diastolic blood pressure 72 mm[Hg] Greta Rashard PA-C Work Phone: [facility] 03-30-2022 10:46-0500 Heart rate 69 /min Greta Rashard PA-C Work Phone: [facility] 03-30-2022 10:46-0500 Respiratory rate 16 /min Greta Rashard PA-C Work Phone: [facility] 03-30-2022 10:46-0500 SaO2% (BldA) [Mass fraction] 98 % Greta Rashard PA-C Work Phone: [facility] 03-30-2022 10:46-0500 Systolic blood pressure 136 mm[Hg] Greta Rashard PA-C Work Phone: [facility] 03-16-2022 08:36-0400 Body height 169.8 cm Greta Rashard PA-C Work Phone: [facility] 03-16-2022 08:36-0400 Body temperature 97.81 [degF] Greta Rashard PA-C Work Phone: [facility] 03-16-2022 08:36-0400 Body weight 87.45 kg Greta Rashard PA-C Work Phone: [facility] 03-16-2022 08:36-0400 Diastolic blood pressure 75 mm[Hg] Greta Rashard PA-C Work Phone: [facility] 03-16-2022 08:36-0400 Heart rate 70 /min Greta Rashard PA-C Work Phone: [facility] 03-16-2022 08:36-0400 Respiratory rate 16 /min Greta Rashard PA-C Work Phone: [facility] 03-16-2022 08:36-0400 SaO2% (BldA) [Mass fraction] 97 % Greta Cardenaser PA-C Work Phone: [facility] 03-16-2022 08:36-0400 Systolic blood pressure 143 mm[Hg] Greta Rashard PA-C Work Phone: [facility] 03-09-2022 08:59-0400 Body height 172.7 cm Grace Bess MD Work Phone: [facility] 03-09-2022 08:59-0400 Body temperature 97.5 [degF] Grace Bess MD Work Phone: [facility] 03-09-2022 08:59-0400 Body weight 86.27 kg Grace Bess MD Work Phone: [facility] 03-09-2022 08:59-0400 Diastolic blood pressure 66 mm[Hg] Grace Bess MD Work Phone: [facility] 03-09-2022 08:59-0400 Heart rate 70 /min Grace Bess MD Work Phone: [facility] 03-09-2022 08:59-0400 Respiratory rate 16 /min Grace Bess MD Work Phone: [facility] 03-09-2022 08:59-0400 SaO2% (BldA) [Mass fraction] 98 % Grace Bess MD Work Phone: [facility] 03-09-2022 08:59-0400 Systolic blood pressure 143 mm[Hg] Grace Bess MD Work Phone: [facility] 02-22-2022 10:17-0400 Body height 172.7 cm Grace Bess MD Work Phone: [facility] 02-22-2022 10:17-0400 Body temperature 98.01 [degF] Grace Bess MD Work Phone: [facility] 02-22-2022 10:17-0400 Body weight 86.46 kg rGace Bess MD Work Phone: [facility] 02-22-2022 10:17-0400 Diastolic blood pressure 73 mm[Hg] Grace Bess MD Work Phone: [facility] 02-22-2022 10:17-0400 Heart rate 70 /min Grace Bess MD Work Phone: [facility] 02-22-2022 10:17-0400 Respiratory rate 16 /min Grace Bess MD Work Phone: [facility] 02-22-2022 10:17-0400 SaO2% (BldA) [Mass fraction] 99 % Grace Bess MD Work Phone: [facility] 02-22-2022 10:17-0400 Systolic blood pressure 135 mm[Hg] Grace Bess MD Work Phone: [facility] 10-22-2021 11:10-0400 Diastolic blood pressure 76 mm[Hg] Eyad Manriquez MD Work Phone: [facility] 10-22-2021 11:10-0400 Heart rate 64 /min Eyad Manriquez MD Work Phone: [facility] 10-22-2021 11:10-0400 Respiratory rate 16 /min Eyad Manriquez MD Work Phone: [facility] 10-22-2021 11:10-0400 SaO2% (BldA) [Mass fraction] 98 % Eyad Manriquez MD Work Phone: [facility] 10-22-2021 11:10-0400 Systolic blood pressure 130 mm[Hg] Eyad Manriquez MD Work Phone: [facility] 10-22-2021 10:50-0400 Body temperature 97.7 [degF] Eyad Manriquez MD Work Phone: [facility] 10-22-2021 09:48-0400 Body height 172.7 cm Eyad Manriquez MD Work Phone: [facility] 10-22-2021 09:48-0400 Body weight 86.18 kg Eyad Manriquez MD Work Phone: [facility] Encounters Encounter Date Encounter Type Care Provider Facility Start: 03-18-2024 End: 03-18-2024 Telephone encounter Yordy Moncada APRN.ORTHOPEDIC SPECIALIST Work Phone: Hematology/Oncology Comment on above: Lab Orders Start: 03-07-2024 End: 03-07-2024 Telephone encounter Josephine Salomon RN Work Phone: Hematology/Oncology Comment on above: Care Coordination (T umor marker results) Start: 03-07-2024 End: 03-07-2024 ambulatory Chair [address] [place] Work Phone: Hematology/Oncology Comment on above: Malignant [...] 02-12-2024 End: 02-12-2024 ambulatory [facility] [place] Work Phone: Hematology/Oncology Comment on above: Malignant [...] 01-03-2024 End: 01-03-2024 ambulatory [facility] [place] Work Phone: Hematology/Oncology Comment on above: Malignant neoplasm o f head of pancreas (HCC) Malignant neoplasm o f head of pancreas (HCC) (Primary Dx) Start: 01-02-2024 End: 01-10-2024 Telephone encounter Greta Wetzel PA-C Work Phone: Hematology/Oncology Comment on above: Lab Orders Start: 12-29-2023 End: 12-29-2023 ambulatory KARUNAKARAVEL KARUPPASAMY Facility:[facility] Start: 12-27-2023 Telephone encounter Adina Schmitz RN [facility] Radiology Procedure Comment on above: Radiology Pre Proced ure Instructions Start: 12-26-2023 Telephone encounter Luisa Cameron RN [facility] Radiology Procedure Comment on above: Radiology Pre Proced ure Instructions Start: 12-25-2023 Telephone encounter Donnell Swenson RN [facility] Radiology Procedure Start: 12-13-2023 End: 12-13-2023 [...] 11-20-2023 End: 11-21-2023 ambulatory [facility] [place] Work Phone: Hematology/Oncology Comment on above: Malignant neoplasm o f head of pancreas (HCC) Malignant neoplasm o f head of pancreas (HCC) (Primary Dx) Start: 11-17-2023 End: 11-17-2023 ambulatory GIOVANNI SALINAS II Facility:[facility] Start: 11-17-2023 End: 11-17-2023 Subsequent hospital visit [...] encounter [facility] woodson [facility]-C [facility] Comment on [facility]: [facility]iology US [...] 10-03-2023 End: 10-03-2023 ambulatory [facility] [place] Work Phone: Hematology/Oncology Comment on above: Malignant [...] 09-13-2023 End: 09-13-2023 Nutrition therapy Yordy Moncada APRN.ORTHOPEDIC SPECIALIST Work Phone: Hematology/Oncology Comment on above: Malignant neoplasm o f head of pancreas (HCC) (Primary Dx); Type 2 diabetes mellitus without complication, with long-term current use of insulin (HCC); Neuropathy; Severe protein-calorie malnutrition (HCC); Diabetes mellitus due to underlying condition with diabetic polyneuropathy, without long-term current use of insulin (HCC) Start: 09-13-2023 End: 09-13-2023 Patient encounter procedure Yordy Moncada APRN.ORTHOPEDIC SPECIALIST Work Phone: Hematology/Oncology Start: 09-13-2023 End: 09-13-2023 ambulatory [facility] [place] Work Phone: Hematology/Oncology Comment on above: Malignant neoplasm o f head of pancreas (HCC) Malignant neoplasm o f head of pancreas (HCC) (Primary Dx) Start: 08-25-2023 End: 08-25-2023 ambulatory GIOVANNI SALINAS II Facility:[facility] Start: 08-23-2023 End: 08-23-2023 Patient encounter procedure Grace Bess MD Work Phone: [place] Start: 08-23-2023 End: 08-23-2023 ambulatory [facility] Work Phone: Hematology/Oncology Comment on above: Malignant neoplasm o f head of pancreas (HCC) Malignant neoplasm o f head of pancreas (HCC) (Primary Dx) Start: 08-18-2023 End: 08-18-2023 ambulatory GIOVANNI B SALINAS Facility:[facility] Start: 08-18-2023 End: 08-18-2023 Subsequent hospital visit by physician Arrival Time Radiology Work Phone: Radiology Pet CT Comment on above: Malignant neoplasm o f head of pancreas (HCC) [C25.0] Start: 08-09-2023 Telephone encounter Josephine Salomon RN Work Phone: Hematology/Oncology Comment on above: Care Coordination (A ppointment cancellation) Start: 08-04-2023 End: 08-04-2023 ambulatory GIOVANNI SALINAS Facility:[facility] Start: 08-04-2023 End: 08-04-2023 ambulatory Chair 20 [place] Work Phone: Hematology/Oncology Comment on above: Malignant neoplasm o f head of pancreas (HCC) (Primary Dx) Start: 08-02-2023 End: 08-02-2023 Patient encounter procedure Grace Bess MD Work Phone: [place] Start: 08-02-2023 End: 08-02-2023 ambulatory [facility] Work Phone: [place] Comment on above: Malignant neoplasm o f head of pancreas (HCC) (Primary Dx) Start: 08-02-2023 End: 08-02-2023 Nutrition therapy [facility] Work Phone: Hematology/Oncology Comment on above: Malignant [...] End: 07-19-2023 Patient encounter procedure Yordy Moncada APRN.ORTHOPEDIC SPECIALIST Work Phone: [place] Start: 07-19-2023 End: 07-19-2023 ambulatory [facility] Work Phone: Hematology/Oncology Comment on above: Malignant [...] End: 07-05-2023 Patient encounter procedure Yordy Moncada APRN.ORTHOPEDIC SPECIALIST Work Phone: [place] Start: 07-05-2023 End: 07-05-2023 ambulatory [facility] Work Phone: Hematology/Oncology Comment on above: Malignant [...] End: 06-21-2023 ambulatory GIOVANNI B SALINAS II Facility:[facility] Start: 06-21-2023 End: 06-21-2023 ambulatory GIOVANNI B SALINAS II Facility:[facility] Start: 06-09-2023 End: 06-09-2023 ambulatory GIOVANNI B SALINAS II Facility:[facility] Start: 06-07-2023 End: 06-07-2023 ambulatory GIOVANNI B SALINAS II Facility:[facility] Start: 06-07-2023 End: 06-07-2023 ambulatory GIOVANNI B SALINAS II Facility:[facility] Start: 05-24-2023 End: 05-24-2023 ambulatory GIOVANNI B SALINAS II Facility:[facility] Start: 05-18-2023 End: 05-18-2023 ambulatory GIOVANNI B SALINAS II Facility:[facility] Start: 05-18-2023 End: 05-18-2023 Subsequent hospital visit by physician Arrival Time Radiology Work Phone: Radiology Pet CT Comment on above: Malignant neoplasm o f head of pancreas (HCC) [C25.0] Start: 05-12-2023 End: 05-12-2023 ambulatory GIOVANNI B SALINAS II Facility:[facility] Start: 05-08-2023 Telephone encounter Grace rebolledo MD Work Phone: Hematology/Oncology Comment on above: Orders Start: 05-05-2023 End: 05-05-2023 Patient encounter procedure Grace Bess MD Work Phone: [place] Start: 05-05-2023 End: 05-08-2023 ambulatory Grace Bess [...] Start: 04-25-2023 Patient encounter status Generic Provider [facility] Start: 04-07-2023 Telephone encounter Josephine Salomon RN Work Phone: Hematology/Oncology Comment on above: Care Coordination (T umor marker results) Start: 04-05-2023 End: 04-05-2023 Nutrition therapy Yordy Moncada APRN.ORTHOPEDIC SPECIALIST Work Phone: Hematology/Oncology Comment on above: Malignant neoplasm o f head of pancreas (HCC) (Primary Dx); Type 2 diabetes mellitus without complication, with long-term current use of insulin (HCC); Severe protein-calorie malnutrition (HCC); Anemia, unspecified type Start: 04-05-2023 End: 04-05-2023 Patient encounter procedure Yordy Moncada APRN.ORTHOPEDIC SPECIALIST Work Phone: [place] Start: 04-05-2023 End: 04-06-2023 ambulatory [facility] Work Phone: Hematology/Oncology Comment on above: Malignant [...] 03-30-2023 End: 03-31-2023 ambulatory GIOVANNI SALINAS II Facility:[facility] Start: 03-08-2023 End: 03-08-2023 Patient encounter procedure Grace Bess MD Work Phone: [employer] Start: 03-08-2023 End: 03-08-2023 ambulatory Lab/[place] [...] encounter procedure Grace Bess MD Work Phone: [employer] Start: 12-21-2022 Telephone encounter Josephine Salomon RN [...] patient visit II Giovanni Salinas Work Phone: [facility] Work Phone: Start: 12-14-2022 End: 12-14-2022 ambulatory [facility] Work Phone: Hematology/Oncology Comment on above: Malignant neoplasm o f head of pancreas (HCC) Malignant neoplasm o f head of pancreas (HCC) (Primary Dx) Start: 12-06-2022 Patient encounter procedure [facility] Provider [facility] Department Start: 12-05-2022 Telephone encounter Grace rebolledo [...] 12-05-2022 End: 12-05-2022 ambulatory [facility] Work Phone: Hematology/Oncology Comment on above: Malignant neoplasm o f head of pancreas (HCC) Start: 11-30-2022 End: 11-30-2022 Patient encounter procedure Grace Bess MD Work Phone: [place] Start: 11-30-2022 End: 11-30-2022 ambulatory [facility] Work Phone: Hematology/Oncology Comment on above: Malignant [...] 11-23-2022 Telephone encounter Greta Jacoby Marcus woodson PASyllabuster [facility] Comment on above: Future Appointment [...] Comment on above: Research (IRB# [id number] [phone] [id number] Informed Consent) Start: 11-03-2022 End: 11-03-2022 Subsequent [...] pancreas (HCC) Start: 08-03-2022 Refill Adina Colón [facility] HB-3 Comment on above: Refill Request [...] encounter procedure Grace Bess MD Work Phone: [employer] Start: 05-11-2022 End: 05-11-2022 ambulatory [facility] Work Phone: Hematology/Oncology Comment on above: Malignant [...] encounter procedure Yordy Moncada APRN.CNP Work Phone: [employer] Start: 04-26-2022 End: 04-26-2022 ambulatory [facility] Work Phone: Hematology/Oncology Comment on above: Malignant neoplasm o f head of pancreas (HCC) Start: 04-20-2022 Telephone encounter Josephine Salomon RN Work Phone: Hematology/Oncology Comment on above: Care Coordination (M edication clarification) Start: 04-20-2022 End: 04-20-2022 ambulatory [facility] Work Phone: Hematology/Oncology Comment on above: Malignant [...] Telephone encounter Jose Antonio LARSON Work Phone: [facility] Comment on above: Results Start: 03-17-2022 Telephone encounter Josephine Salomon RN Work Phone: Hematology/Oncology Comment on above: Care Coordination (S tool results) Start: 03-16-2022 End: 03-16-[address] Work Phone: Nutrition Therapy Comment on above: Nutrition Counseling Start: 03-16-2022 End: 03-16-2022 Telemedicine consultation with patient Jose Antonio LARSON Work Phone: [facility] Start: 03-16-2022 End: 03-16-2022 Patient encounter [...] on Care Coordination (A ntiemetics transferred to [facility] [place]) Start: 03-09-2022 End: 03-09-2022 Nutrition therapy Ibis [...] Start: 02-25-2022 Telephone encounter Vel Sims RN [facility] Radiology Procedure Comment on above: Radiology Pre Proced ure Instructions Start: 02-23-2022 Orders Only Antoinette Marina RN [facility] Radiology Procedure Comment on above: Malignant neoplasm [...] encounter procedure Grace Bess MD Work Phone: [employer] Start: 02-17-2022 End: 02-18-2022 Patient encounter procedure [...] End: 02-11-2021 Evaluation and management of inpatient [facility] Start: 01-22-2021 End: 02-19-[address] GIOVANNI [...] End: 04-16-2020 Patient encounter procedure FARA MONACO [facility] Start: 04-15-2020 End: 04-15-2020 Subsequent hospital visit by physician Giovanni Salinas [facility] Start: 03-16-2020 End: 03-17-2020 Patient encounter procedure GIOVANNI SALINAS [facility] Start: 03-16-2020 End: 03-16-2020 Subsequent hospital visit by physician Giovanni Salinas [facility] Start: 11-23-2019 Patient encounter status Eyad Manriquez MD Work Phone: [facility] Work Phone: Procedures Date Procedure [...] 10-03-2023 Radiologic exam ches t 2 views Gerta Dozier Rashard PA-C Work Phone: Start: 10-03-2023 Blood count complete auto&auto difrntl wbc Greta Dozier Rasahrd PA-C Work Phone: Start: 09-13-2023 Blood count complete auto&auto difrntl wbc Grace Bess MD Work Phone: Start: 08-23-2023 Blood count complete auto&auto difrntl wbc Grace Bess MD Work Phone: Start: 08-18-2023 Ct abdomen & pelvis w/contrast material Grace Bess MD Work Phone: Start: 08-18-2023 Ct thorax w/contrast material Grace Bess MD Work Phone: Start: 08-02-2023 Blood count complete auto&auto difrntl wbc Yordy Moncada TEACHING FELLOW.ORTHOPEDIC SPECIALIST Work Phone: Start: 07-19-2023 Blood count complete auto&auto difrntl wbc Yordy Moncada TEACHING FELLOW.ORTHOPEDIC SPECIALIST Work Phone: Start: 07-05-2023 [facility] CBC W AUTO DIFF BLD Generic External Data Provider Start: 07-05-2023 Blood count complete auto&auto difrntl wbc Grace Bess MD Work Phone: Start: 05-18-2023 Ct abdomen & pelvis w/contrast material Grace Bess MD Work Phone: Start: 05-18-2023 Ct thorax w/contrast material Grace Bess MD Work Phone: Start: 05-18-2023 CREATININE BLD Greta ODEN-C Work Phone: Start: 05-05-2023 Blood count complete auto&auto difrntl wbc Yordy Moncada TEACHING FELLOW.ORTHOPEDIC SPECIALIST Work Phone: Start: 04-05-2023 Blood count complete auto&auto difrntl wbc Yordy Moncada TEACHING FELLOW.ORTHOPEDIC SPECIALIST Work Phone: Start: 03-08-2023 Blood count complete [...] Phone: Start: 03-07-2022 Ct thorax w/contrast material Grace Bess MD Work Phone: Start: 03-07-2022 Blood [...] Detail Author Start: 12-15-2032 Urine microalbumin profile [facility] Start: 12-04-2030 Screening for malign ant neoplasm of colon [facility] Start: 11-12-2029 Screening for malign ant neoplasm of colon [facility] Start: 05-05-2026 Diabetes Screening Diabetes Screenin jania [facility] Start: 04-05-2026 Diabetes Screening Diabetes Screenin g [facility] Start: 03-30-2026 Diabetes Screening Diabetes Screenin g [facility] Start: 03-08-2026 Diabetes Screening Diabetes Screenin g [facility] Start: 03-01-2026 Diabetes Screening Diabetes Screenin g [facility] Start: 02-08-2026 Diabetes Screening Diabetes Screenin g [facility] Start: 02-01-2026 Diabetes Screening Diabetes Screenin g [facility] Start: 01-04-2026 DIABETES SCREEN DIABETES SCREEN [facility] Start: 12-21-2025 DIABETES SCREEN DIABETES SCREEN [facility] Start: 12-14-2025 DIABET[facility]CRE[facility] Start: 11-30-2025 DIABETES SCREEN DIABETES SCREEN [facility] Start: 11-23-2025 DIABETES SCREEN DIABETES SCREEN [facility] Start: 11-10-2025 DIABETES SCREEN DIABETES SCREEN [facility] Start: 10-26-2025 DIABETES SCREEN [facility] Start: 09-29-2025 DIABETES SCREEN DIABETES SCREEN [facility] Start: 08-02-2025 DIABETES SCREEN DIABETES SCREEN [facility] Start: 06-29-2025 DIABETES SCREEN DIABETES SCREEN [facility] Start: 06-01-2025 DIABETES SCREEN DIABETES SCREEN [facility] Start: 05-11-2025 DIABETES SCREEN DIABETES SCREEN [facility] Start: 04-26-2025 DIABETES SCREEN DIABETES SCREEN [facility] Start: 04-20-2025 DIABETES SCREEN [facility] Start: 04-06-2025 DIABETES SCREEN [facility]CRE[facility] Start: 03-30-2025 DIABETES SCREEN DIABETES SCREEN [facility] Start: 03-16-2025 DIABETES SCREEN DIABETES SCREEN [facility] Start: 03-07-2025 DIABETES SCREEN DIABETES SCREEN [facility] Start: 12-21-2024 Urine screening for protein Diabetes: Urine Protein Screening [facility] Start: 11-23-2024 Lipid 1996 panel - S dusty or Plasma Lipid Screening [facility] Start: 11-23-2024 Lipid panel Lipid Screening [facility] Start: 11-23-2024 LIPID SCREEN LIPID SCREEN [facility] Start: 11-16-2024 Screening for malign ant neoplasm of lung Lung Cancer Screening [facility] Start: 08-17-2024 Screening for malign ant neoplasm of lung Lung Cancer Screening [facility] Start: 05-28-2024 End: 05-28-2024 Patient encounter procedure 05/28/2024 11:20 AM EST Office Visit [facility] [address] [place] [id number] César Leiva MD [address] [place] [address] [facility] Start: 05-18-2024 Screening for malign ant neoplasm of lung Lung Cancer Screening [facility] Start: 04-27-2024 Hemoglobin A1c measurement HbA1C [facility] Start: 04-27-2024 Pneumococcal Vaccine : 65+ Years (1 - PCV) Pneumococcal Vaccine: 65+ Years (1 - PCV) [facility] Comment on above: Postponed from 04/21 (Patient Refused) Start: 04-27-2024 Pneumococcal Vaccine : 65+ Years (1 of 2 - PCV) Pneumococcal Vaccine: 65+ Years (1 of 2 - PCV) [facility] Comment on above: Postponed from 04/21 (Patient Refused) Start: 03-29-2024 End: 03-29-2024 Follow-up encounter 03/29/2024 11:00 AM [facility] Hematology/Oncology [address] [place] [address] [place] [address] 3 week follow up and chemotx Julia // pump connect Hematology/Oncology Comment on above: 3 week follow up and chemotx Julia // pump connect Start: 03-27-2024 End: 06-26-2024 Cancer Ag 19-9 [Units/volume] in Serum or Plasma CA 19-9 Lab Routine Malignant neoplasm of head of pancreas (HCC) Expected: 03/27/2024, Expires: 06/26/2024 [facility] Comment on above: Expected: 03/27/2024 , Expires: 06/26/2024 Start: 03-27-2024 End: 06-26-2024 CBC W Auto Differential panel - Blood COMPLETE BLOOD COUNT AND DIFFERENTIAL Lab Routine Malignant neoplasm of head of pancreas (HCC) Expected: 03/27/2024, Expires: 06/26/2024 [facility] Work Phone: Comment on above: Expected: 03/27/2024 , Expires: 06/26/2024 Start: 03-27-2024 End: 06-26-2024 Comprehensive metabolic 2000 panel - Serum or Plasma COMPREHENSIVE METABOLIC PANEL Lab Routine Malignant neoplasm of head of pancreas (HCC) Expected: 03/27/2024, Expires: 06/26/2024 [facility] Comment on above: Expected: 03/27/2024 , Expires: 06/26/2024 Start: 03-27-2024 End: 03-27-2024 Follow-up encounter Hematology/Oncology Comment on above: 3 week follow up and chemotx Julia // pump connect 3 week follow up and chemotx Julia-PORT // pump connect Start: 03-07-2024 End: 03-07-2024 Follow-up encounter 03/07/2024 11:00 AM [facility] Hematology/Oncology [facility] [place] [address] 3 week follow up and chemotx Julia // pump connect Hematology/Oncology Comment on above: 3 week follow up and chemotx Julia // pump connect Start: 03-05-2024 End: 06-04-2024 Cancer Ag 19-9 [Units/volume] in Serum or Plasma [facility] Work Phone: Comment on above: Expected: 03/05/2024 , Expires: 06/04/2024 Start: 03-05-2024 End: 03-05-2024 Follow-up encounter Hematology/Oncology Comment on above: 3 week follow up and chemotx Julia // pump connect Start: 02-14-2024 End: 02-14-2024 Follow-up encounter 02/14/2024 10:30 AM [facility] Infusion Center Hematology/Oncology [facility] [place] [address] 3 week follow up and chemotx Julia // pump connect Hematology/Oncology Comment on above: 3 week follow up and chemotx Julia // pump connect Start: 02-12-2024 DIABETES SCREEN DIABETES SCREEN [facility] Start: 02-12-2024 End: 02-12-2024 Follow-up encounter Hematology/Oncology Comment on above: 3 week follow up and chemotx Julia // pump connect Start: 01-27-2024 Hemoglobin A1c measurement Diabetes: Hemoglobin A1C [facility] Start: 01-25-2024 End: 01-25-2024 Follow-up encounter 01/25/2024 10:30 AM [facility] Infusion Center Hematology/Oncology [address] [place] [address] [place] [address] 3 week follow up and chemotx Julia // pump connect Hematology/Oncology Comment on above: 3 week follow up and chemotx Julia // pump connect Start: 01-23-2024 End: 04-23-2024 Cancer Ag 19-9 [Units/volume] in Serum or Plasma [facility] Comment on above: Expected: 01/23/2024 , Expires: 04/23/2024 Start: 01-23-2024 End: 04-23-2024 CBC W Auto Differential panel - Blood COMPLETE BLOOD COUNT AND DIFFERENTIAL Lab Routine Malignant neoplasm of head of pancreas (HCC) Expected: 01/23/2024, Expires: 04/23/2024 [facility] Comment on above: Expected: 01/23/2024 , Expires: 04/23/2024 Start: 01-23-2024 End: 04-23-2024 Comprehensive metabolic 2000 panel - Serum or Plasma [facility] Work Phone: Comment on above: Expected: 01/23/2024 , Expires: 04/23/2024 Start: 01-23-2024 End: 01-23-2024 Follow-up encounter Hematology/Oncology Comment on above: 3 week follow up and chemotx Julia // pump connect Start: 01-21-2024 Influenza vaccination C [facility] Start: 01-05-2024 End: 01-05-2024 ambulatory Hematology/Oncology Comment on above: pump disconnect pump dc Start: 01-03-2024 End: 04-03-2024 Cancer Ag 19-9 [Units/volume] in Serum or Plasma [facility] Work Phone: Comment on above: Expected: 01/03/2024 , Expires: 04/03/2024 Start: 01-03-2024 End: 04-03-2024 CBC W Auto Differential panel - Blood COMPLETE BLOOD COUNT AND DIFFERENTIAL Lab Routine Malignant neoplasm of head of pancreas (HCC) Expected: 01/03/2024, Expires: 04/03/2024 [facility] Comment on above: Expected: 01/03/2024 , Expires: 04/03/2024 Start: 01-03-2024 End: 04-03-2024 Comprehensive metabolic 2000 panel - Serum or Plasma COMPREHENSIVE METABOLIC PANEL Lab Routine Malignant neoplasm of head of pancreas (HCC) Expected: 01/03/2024, Expires: 04/03/2024 [facility] Work Phone: Comment on above: Expected: 01/03/2024 , Expires: 04/03/2024 Start: 01-03-2024 End: 01-03-2024 ambulatory 01/03/2024 9:45 AM EDT Infusion Center Hematology/Oncology [address] [place] [address] [place] [address] [facility] Hematology/Oncology Comment on above: Julia Start: 01-03-2024 End: 01-03-2024 Follow-up encounter Hematology/Oncology Comment on above: 3 week follow up and chemotx Julia // pump connect Start: 12-29-2023 End: 12-29-2023 Admission to same day surgery center 12/29/2023 10:00 AM EDT - 12/29/2023 11:30 AM EDT Surgery [facility] Radiology Procedure [id number] [place] [address] Jhonny Morgan MD [address] [place] [address] REMOVAL CATHETER PORT-A-CATH [facility] Radiology Procedure Comment on above: REMOVAL CATHETER POR T-A-CATH Start: 12-29-2023 End: 12-29-2023 Insj tunneled ctr vad w/subq port age 6 yr/> INSERTION PORT VENOUS ACCESS ADULT Central line complication, initial encounter 12/29/2023 10:00 AM EDT [facility] Start: 12-29-2023 End: 12-29-2023 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 REMOVAL CATHETER PORT-A-CATH Central line complication, initial encounter 12/29/2023 10:00 AM EDT AV IR Start: 12-29-2023 Subsequent hospital visit by physician 12/29/2023 10:00 AM EDT Hospital Encounter [facility] Radiology Procedure [id number] [place] [address] Jhonny Morgan MD [address] [place] [address] Central line complication, initial encounter [T82.9XXA] [facility] Radiology Procedure Comment on above: Central line complic ation, initial encounter [T82.9XXA] Start: 12-13-2023 End: 12-13-2023 ambulatory 12/13/2023 11:00 AM EDT Infusion Center Hematology/Oncology [address] [place] [address] [place] [address] pump disconnect Hematology/Oncology Comment on above: pump [...] pancreas (HCC) Expected: 11/21/2023 (Approximate), Expires: 02/20/2024 [facility] Comment on above: Expected: 11/21/2023 (Approximate), Expires: 02/20/2024 Start: 11-21-2023 End: 02-20-2024 CBC W Auto Differential panel - Blood COMPLETE BLOOD COUNT AND DIFFERENTIAL Lab Routine Malignant neoplasm of head of pancreas (HCC) Expected: 11/21/2023 (Approximate), Expires: 02/20/2024 [facility] Comment on above: Expected: 11/21/2023 (Approximate), Expires: 02/20/2024 Start: 11-21-2023 End: 02-20-2024 Comprehensive metabolic 2000 panel - Serum or Plasma COMPREHENSIVE METABOLIC PANEL Lab Routine Malignant neoplasm of head of pancreas (HCC) Expected: 11/21/2023 (Approximate), Expires: 02/20/2024 [facility] Comment on above: Expected: 11/21/2023 (Approximate), Expires: 02/20/2024 Start: 11-21-2023 End: 11-29-2024 CT Abdomen and Pelvis W contrast IV CT ABD/PEL W IVCON Radiology Routine Malignant neoplasm of head of pancreas (HCC) Expected: 11/21/2023 (Approximate), Expires: 11/29/2024 [facility] Comment on above: Expected: 11/21/2023 (Approximate), Expires: 11/29/2024 Start: 11-21-2023 End: 11-29-2024 CT Chest W contrast IV CT CHEST W IVCON Radiology Routine Malignant neoplasm of head of pancreas (HCC) Expected: 11/21/2023 (Approximate), Expires: 11/29/2024 [facility] Work Phone: Comment on above: Expected: 11/21/2023 (Approximate), Expires: 11/29/2024 Start: 11-20-2023 End: 11-20-2023 Follow-up encounter Hematology/Oncology Comment on above: 3 week follow up and chemotx Julia // pump connect Start: 11-19-2023 Influenza vaccination Influenza Vacc ine (#1) [facility] Comment on above: Postponed from 01/20 (Patient Refused) Start: 11-17-2023 End: 11-17-2023 Patient encounter procedure 11/17/2023 10:15 AM EDT Appointment Radiology Pet CT [address] [place] [address] [place] [address] CT CAP with contrast Radiology Pet CT [...] 11-04-2023 Influenza vaccination LUNG CANCER SC REENING [facility] Start: 11-04-2023 Screening for malign ant neoplasm of lung Lung Cancer Screening [facility] Start: 11-03-2023 End: 11-03-2023 ambulatory 11/03/2023 11:00 AM EDT Infusion Center Hematology/Oncology [address] [place] [address] pump disconnect Hematology/Oncology Comment on above: pump disconnect Start: 11-02-2023 End: 11-02-2023 ambulatory 11/02/2023 12:30 PM EDT Infusion Center Hematology/Oncology [address] [place] [address] 12:30pm pump disconnect Hematology/Oncology Comment on above: 12:30pm pump disconn ect Start: 11-01-2023 End: 11-01-2023 Follow-up encounter Hematology/Oncology Comment on above: 3 week follow up and chemotx Julia // pump connecct Start: 10-27-2023 Hemoglobin A1c measurement HbA1C [facility] Start: 10-27-2023 Medicare Annual Well ness (AWV) Medicare Annual Wellness (AWV) [facility] Start: 10-27-2023 End: 10-27-2023 ambulatory 10/27/2023 10:30 AM T Infusion [facility] Hematology/Oncology [address] [place] [address] pump disconnect Hematology/Oncology Comment on above: pump disconnect Start: 10-25-2023 End: 10-25-2023 Follow-up encounter Hematology/Oncology Comment on above: 3 week follow up and chemotx Julia // pump connecct Start: 10-13-2023 End: 10-13-2023 ambulatory 10/13/2023 11:30 AM EDT Infusion Center Hematology/Oncology [address] [place] [address] pump disconnect Hematology/Oncology Comment on above: pump disconnect Start: 10-12-2023 End: 10-12-2023 ambulatory 10/12/2023 11:30 AM EDT Infusion Center Hematology/Oncology [address] [address] pump disconnect Hematology/Oncology Comment on above: pump disconnect Start: 10-11-2023 End: 01-10-2024 Cancer Ag 19-9 [Units/volume] in Serum or Plasma CA 19-9 Lab Routine Malignant neoplasm of head of pancreas (HCC) Expected: 10/11/2023, Expires: 01/10/2024 [facility] Comment on above: Expected: 10/11/2023 , Expires: 01/10/2024 Start: 10-11-2023 End: 01-10-2024 CBC W Auto Differential panel - Blood COMPLETE BLOOD COUNT AND DIFFERENTIAL Lab Routine Malignant neoplasm of head of pancreas (HCC) Expected: 10/11/2023, Expires: 01/10/2024 [facility] Comment on above: Expected: 10/11/2023 , Expires: 01/10/2024 Start: 10-11-2023 End: 01-10-2024 Comprehensive metabolic 2000 panel - Serum or Plasma COMPREHENSIVE METABOLIC PANEL Lab Routine Malignant neoplasm of head of pancreas (HCC) Expected: 10/11/2023, Expires: 01/10/2024 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 Start: 10-10-2023 End: 10-10-2023 Follow-up encounter Hematology/Oncology Comment on above: 3 week follow up and chemotx Julia // pump connecct Start: 10-05-2023 End: 10-05-2023 ambulatory 10/05/2023 10:30 AM T Infusion Center Hematology/Oncology [address] [place] [address] [place] [address] pump disconnect Hematology/Oncology Comment on above: pump disconnect Start: 10-03-2023 End: 01-02-2024 CBC W Auto Differential panel - Blood COMPLETE BLOOD COUNT AND DIFFERENTIAL Lab Routine Leg swelling Malignant neoplasm of head of pancreas (HCC) Neuropathy Acute cough Expected: 10/03/2023, Expires: 01/02/2024 [facility] Comment on above: Expected: 10/03/2023 , Expires: 01/02/2024 Start: 10-03-2023 End: 01-02-2024 Comprehensive metabolic 2000 panel - Serum or Plasma COMPREHENSIVE METABOLIC PANEL Lab Routine Leg swelling Malignant neoplasm of head of pancreas (HCC) Neuropathy Acute cough Expected: 10/03/2023, Expires: 01/02/2024 [facility] Work Phone: Comment on above: Expected: 10/03/2023 , Expires: 01/02/2024 Start: 10-03-2023 End: 10-03-2023 Follow-up encounter Hematology/Oncology Comment on above: 3 week follow up and chemotx Julia // pump connecct Start: 09-25-2023 End: 12-25-2023 Cancer Ag 19-9 [Units/volume] in Serum or Plasma CA 19-9 Lab Routine Malignant neoplasm of head of pancreas (HCC) Neuropathy Expected: 09/25/2023, Expires: 12/25/2023 [facility] Comment on above: Expected: 09/25/2023 , Expires: 12/25/2023 Start: 09-25-2023 End: 12-25-2023 CBC W Auto Differential panel - Blood COMPLETE BLOOD COUNT AND DIFFERENTIAL Lab Routine Malignant neoplasm of head of pancreas (HCC) Neuropathy Expected: 09/25/2023, Expires: 12/25/2023 [facility] Comment on above: Expected: 09/25/2023 , Expires: 12/25/2023 Start: 09-25-2023 End: 12-25-2023 Comprehensive metabolic 2000 panel - Serum or Plasma COMPREHENSIVE METABOLIC PANEL Lab Routine Malignant neoplasm of head of pancreas (HCC) Neuropathy Expected: 09/25/2023, Expires: 12/25/2023 [facility] Work Phone: Comment on above: Expected: 09/25/2023 , Expires: 12/25/2023 Start: 09-15-2023 End: 09-15-2023 ambulatory 09/15/2023 11:00 AM [facility] Infusion Center Hematology/Oncology [address] [address] pump disconnect Hematology/Oncology Comment on above: pump disconnect Start: 09-13-2023 End: 12-13-2023 Cancer Ag 19-9 [Units/volume] in Serum or Plasma [facility] Work Phone: Comment on above: Expected: 09/13/2023 (Approximate), Expires: 12/13/2023 Start: 09-13-2023 End: 12-13-2023 CBC W Auto Differential panel - Blood CBC + DIFF Lab Routine Malignant neoplasm of head of pancreas (HCC) Expected: 09/13/2023 (Approximate), Expires: 12/13/2023 [facility] Work Phone: Comment on above: Expected: 09/13/2023 (Approximate), Expires: 12/13/2023 Start: 09-13-2023 End: 12-13-2023 Cobalamin (Vitamin B12) [Mass/volume] in Serum or Plasma VITAMIN B12 BLOOD Lab Routine Malignant neoplasm of head of pancreas (HCC) Expected: 09/13/2023 (Approximate), Expires: 12/13/2023 [facility] Work Phone: Comment on above: Expected: 09/13/2023 (Approximate), Expires: 12/13/2023 Start: 09-13-2023 End: 12-13-2023 Comprehensive metabolic 2000 panel - Serum or Plasma COMP METABOLIC PANEL Lab Routine Malignant neoplasm of head of pancreas (HCC) Expected: 09/13/2023 (Approximate), Expires: 12/13/2023 [facility] Work Phone: Comment on above: Expected: 09/13/2023 (Approximate), Expires: 12/13/2023 Start: 09-13-2023 End: 08-22-2024 Ferritin [Mass/volume] in Serum or Plasma FERRITIN BLD Lab Routine Malignant neoplasm of head of pancreas (HCC) Expected: 09/13/2023 (Approximate), Expires: 08/22/2024 [facility] Work Phone: Comment on above: Expected: 09/13/2023 (Approximate), Expires: 08/22/2024 Start: 09-13-2023 End: 08-22-2024 Iron and Iron binding capacity panel - Serum or Plasma IRON + TIBC Lab Routine Malignant neoplasm of head of pancreas (HCC) Expected: 09/13/2023 (Approximate), Expires: 08/22/2024 [facility] Work Phone: Comment on above: Expected: 09/13/2023 (Approximate), Expires: 08/22/2024 Start: 08-16-2023 End: 11-15-2023 Cancer Ag 19-9 [Units/volume] in Serum or Plasma CA 19-9 BLD Lab Routine Malignant neoplasm of head of pancreas (HCC) Expected: 08/16/2023 (Approximate), Expires: 11/15/2023 [facility] Work Phone: Comment on above: Expected: 08/16/2023 (Approximate), Expires: 11/15/2023 Start: 08-16-2023 End: 11-15-2023 CBC W Auto Differential panel - Blood CBC + DIFF Lab Routine Malignant neoplasm of head of pancreas (HCC) Expected: 08/16/2023 (Approximate), Expires: 11/15/2023 [facility] Work Phone: Comment on above: Expected: 08/16/2023 (Approximate), Expires: 11/15/2023 Start: 08-16-2023 End: 11-15-2023 Comprehensive metabolic 2000 panel - Serum or Plasma COMP METABOLIC PANEL Lab Routine Malignant neoplasm of head of pancreas (HCC) Expected: 08/16/2023 (Approximate), Expires: 11/15/2023 [facility] Work Phone: Comment on above: Expected: 08/16/2023 (Approximate), Expires: 11/15/2023 Start: 08-16-2023 End: 08-31-2024 CT Abdomen and Pelvis W contrast IV CT ABD/PEL W IVCON Radiology Routine Malignant neoplasm of head of pancreas (HCC) Expected: 08/16/2023 (Approximate), Expires: 08/31/2024 [facility] Work Phone: Comment on above: Expected: 08/16/2023 (Approximate), Expires: 08/31/2024 Start: 08-16-2023 End: 08-31-2024 CT Chest W contrast IV CT CHEST W IVCON Radiology Routine Malignant neoplasm of head of pancreas (HCC) Expected: 08/16/2023 (Approximate), Expires: 08/31/2024 [facility] Work Phone: Comment on above: Expected: 08/16/2023 (Approximate), Expires: 08/31/2024 Start: 07-28-2023 Influenza vaccination LUNG CANCER [facility] Start: 07-27-2023 Hemoglobin A1c measurement Diabetes: Hemoglobin A1C [facility] Start: 07-26-2023 End: 10-25-2023 Cancer Ag 19-9 [Units/volume] in Serum or Plasma CA 19-9 BLD Lab Routine Malignant neoplasm of head of pancreas (HCC) Type 2 diabetes mellitus without complication, with long-term current use of insulin (HCC) Neuropathy Severe protein-calorie malnutrition (HCC) Expected: 07/26/2023, Expires: 10/25/2023 [facility] Work Phone: Comment on above: Expected: 07/26/2023 , Expires: 10/25/2023 Start: 07-26-2023 End: 10-25-2023 CBC W Auto Differential panel - Blood CBC + DIFF Lab Routine Malignant neoplasm of head of pancreas (HCC) Type 2 diabetes mellitus without complication, with long-term current use of insulin (HCC) Neuropathy Severe protein-calorie malnutrition (HCC) Expected: 07/26/2023, Expires: 10/25/2023 [facility] Work Phone: Comment on above: Expected: 07/26/2023 , Expires: 10/25/2023 Start: 07-26-2023 End: 10-25-2023 Comprehensive metabolic 2000 panel - Serum or Plasma COMP METABOLIC PANEL Lab Routine Malignant neoplasm of head of pancreas (HCC) Type 2 diabetes mellitus without complication, with long-term current use of insulin (HCC) Neuropathy Severe protein-calorie malnutrition (HCC) Expected: 07/26/2023, Expires: 10/25/2023 [facility] Work Phone: Comment on above: Expected: 07/26/2023 , Expires: 10/25/2023 Start: 07-13-2023 End: 10-12-2023 CBC W Auto Differential panel - Blood CBC + DIFF Lab Routine Malignant neoplasm of head of pancreas (HCC) Expected: 07/13/2023, Expires: 10/12/2023 [facility] Work Phone: Comment on above: Expected: 07/13/2023 , Expires: 10/12/2023 Start: 07-13-2023 End: 10-12-2023 Comprehensive metabolic 2000 panel - Serum or Plasma COMP METABOLIC PANEL Lab Routine Malignant neoplasm of head of pancreas (HCC) Expected: 07/13/2023, Expires: 10/12/2023 [facility] Work Phone: Comment on above: Expected: 07/13/2023 , Expires: 10/12/2023 Start: 05-26-2023 End: 08-25-2023 Cancer Ag 19-9 [Units/volume] in Serum or Plasma CA 19-9 BLD Lab Routine Malignant neoplasm of head of pancreas (HCC) Expected: 05/26/2023 (Approximate), Expires: 08/25/2023 [facility] Work Phone: Comment on above: Expected: 05/26/2023 (Approximate), Expires: 08/25/2023 Start: 05-26-2023 End: 08-25-2023 CBC W Auto Differential panel - Blood CBC + DIFF Lab Routine Malignant neoplasm of head of pancreas (HCC) Expected: 05/26/2023 (Approximate), Expires: 08/25/2023 [facility] Work Phone: Comment on above: Expected: 05/26/2023 (Approximate), Expires: 08/25/2023 Start: 05-26-2023 End: 08-25-2023 Comprehensive metabolic 2000 panel - Serum or Plasma COMP METABOLIC PANEL Lab Routine Malignant neoplasm of head of pancreas (HCC) Expected: 05/26/2023 (Approximate), Expires: 08/25/2023 [facility] Work Phone: Comment on above: Expected: 05/26/2023 (Approximate), Expires: 08/25/2023 Start: 05-26-2023 End: 06-03-2024 Ct abdomen & pelvis w/contrast material CT ABD/PEL W IVCON Radiology Routine Malignant neoplasm of head of pancreas (HCC) Expected: 05/26/2023 (Approximate), Expires: 06/03/2024 [facility] Work Phone: Comment on above: Expected: 05/26/2023 (Approximate), Expires: 06/03/2024 Start: 05-26-2023 End: 06-03-2024 CT CHEST W IVCON CT CHEST W IVCON Radiology Routine Malignant neoplasm of head of pancreas (HCC) Expected: 05/26/2023 (Approximate), Expires: 06/03/2024 [facility] Work Phone: Comment on above: Expected: 05/26/2023 (Approximate), Expires: 06/03/2024 Start: 05-25-2023 Influenza vaccination LUNG CANCER [facility] Start: 05-22-2023 Advance Directive Discussion Advance Directive Discussion [facility] Start: 05-22-2023 Behavioral Health Screening Behavioral Health Screening [facility] Start: 05-22-2023 Depression Assessment Depression Ass essment [facility] Start: 05-12-2023 End: 08-11-2023 CBC W Auto Differential panel - Blood CBC + DIFF Lab Routine Malignant neoplasm of head of pancreas (HCC) Expected: 05/12/2023, Expires: 08/11/2023 [facility] Work Phone: Comment on above: Expected: 05/12/2023 , Expires: 08/11/2023 Start: 04-26-2023 End: 07-26-2023 Cancer Ag 19-9 [Units/volume] in Serum or Plasma CA 19-9 BLD Lab Routine Type 2 diabetes mellitus without complication, with long-term current use of insulin (HCC) Severe protein-calorie malnutrition (HCC) Malignant neoplasm of head of pancreas (HCC) Anemia, unspecified type Expected: 04/26/2023 (Approximate), Expires: 07/26/2023 [facility] Work Phone: Comment on above: Expected: 04/26/2023 (Approximate), Expires: 07/26/2023 Start: 04-26-2023 End: 07-26-2023 CBC W Auto Differential panel - Blood CBC + DIFF Lab Routine Type 2 diabetes mellitus without complication, with long-term current use of insulin (HCC) Severe protein-calorie malnutrition (HCC) Malignant neoplasm of head of pancreas (HCC) Anemia, unspecified type Expected: 04/26/2023 (Approximate), Expires: 07/26/2023 [facility] Work Phone: Comment on above: Expected: 04/26/2023 (Approximate), Expires: 07/26/2023 Start: 04-26-2023 End: 07-26-2023 Comprehensive metabolic 2000 panel - Serum or Plasma COMP METABOLIC PANEL Lab Routine Type 2 diabetes mellitus without complication, with long-term current use of insulin (HCC) Severe protein-calorie malnutrition (HCC) Malignant neoplasm of head of pancreas (HCC) Anemia, unspecified type Expected: 04/26/2023 (Approximate), Expires: 07/26/2023 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 Work Phone: Comment on above: Expected: 03/30/2023 (Approximate), Expires: 06/29/2023 Start: 03-30-2023 End: 06-29-2023 CBC W Auto Differential panel - Blood [facility] Work Phone: Comment on above: Expected: 03/30/2023 (Approximate), Expires: 06/29/2023 Expected: 03/30/2023 , Expires: 06/29/2023 Start: 03-30-2023 End: 06-29-2023 Comprehensive metabolic 2000 panel - Serum or Plasma 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 Work Phone: Comment on above: Expected: 03/02/2023 , Expires: 05/02/2023 Start: 03-02-2023 End: 05-02-2023 CBC W Auto Differential panel - Blood CBC + DIFF Lab Routine 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) Type 2 diabetes mellitus without complication, with long-term current use of insulin (HCC) LINDSEY (dyspnea on exertion) Expected: 03/02/2023, Expires: 05/02/2023 [facility] Work Phone: Comment on above: Expected: 03/02/2023 , Expires: 05/02/2023 Start: 03-02-2023 End: 05-02-2023 Comprehensive metabolic 2000 panel - Serum or Plasma COMP METABOLIC PANEL Lab Routine 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) Type 2 diabetes mellitus without complication, with long-term current use of insulin (HCC) LINDSEY (dyspnea on exertion) Expected: 03/02/2023, Expires: 05/02/2023 [facility] Work Phone: Comment on above: Expected: 03/02/2023 , Expires: 05/02/2023 Start: 03-01-2023 End: 05-01-2023 Cancer Ag 19-9 [Units/volume] in Serum or Plasma [facility] Work Phone: Comment on above: Expected: 03/01/2023 (Approximate), Expires: 05/01/2023 Start: 03-01-2023 End: 05-01-2023 CBC W Auto Differential panel - Blood CBC + DIFF Lab Routine 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) Expected: 03/01/2023 (Approximate), Expires: 05/01/2023 [facility] Work Phone: Comment on above: Expected: 03/01/2023 (Approximate), Expires: 05/01/2023 Start: 03-01-2023 End: 05-01-2023 Comprehensive metabolic 2000 panel - Serum or Plasma [facility] Work Phone: Comment on above: Expected: 03/01/2023 (Approximate), Expires: 05/01/2023 Start: 02-08-2023 End: 04-10-2023 CBC W Auto Differential panel - Blood CBC + DIFF Lab Routine 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) Expected: 02/08/2023 (Approximate), Expires: 04/10/2023 [facility] Work Phone: Comment on above: Expected: 02/08/2023 (Approximate), Expires: 04/10/2023 Start: 02-08-2023 End: 04-10-2023 Comprehensive metabolic 2000 panel - Serum or Plasma COMP METABOLIC PANEL Lab Routine 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) Expected: 02/08/2023 (Approximate), Expires: 04/10/2023 [facility] Work Phone: Comment on above: Expected: 02/08/2023 (Approximate), Expires: 04/10/2023 Start: 02-04-2023 End: 04-06-2023 Cancer Ag 19-9 [Units/volume] in Serum or Plasma CA 19-9 BLD Lab Routine 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) Expected: 02/04/2023 (Approximate), Expires: 04/06/2023 [facility] Work Phone: Comment on above: Expected: 02/04/2023 (Approximate), Expires: 04/06/2023 Start: 02-04-2023 End: 04-06-2023 CBC W Auto Differential panel - Blood CBC + DIFF Lab Routine 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) Expected: 02/04/2023 (Approximate), Expires: 04/06/2023 [facility] Work Phone: Comment on above: Expected: 02/04/2023 (Approximate), Expires: 04/06/2023 Start: 02-04-2023 End: 04-06-2023 Comprehensive metabolic 2000 panel - Serum or Plasma COMP METABOLIC PANEL Lab Routine 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) Expected: 02/04/2023 (Approximate), Expires: 04/06/2023 [facility] Work Phone: Comment on above: Expected: 02/04/2023 (Approximate), Expires: 04/06/2023 Start: 01-20-2023 Influenza vaccination C [facility] Start: 12-14-2022 End: 02-13-2023 Cancer Ag 19-9 [Units/volume] in Serum or Plasma [facility] Work Phone: Comment on above: Expected: 12/14/2022 (Approximate), Expires: 02/13/2023 Start: 12-14-2022 End: 02-13-2023 CBC W Auto Differential panel - Blood CBC + DIFF Lab Routine Malignant neoplasm of head of pancreas (HCC) Expected: 12/14/2022 (Approximate), Expires: 02/13/2023 [facility] Work Phone: Comment on above: Expected: 12/14/2022 (Approximate), Expires: 02/13/2023 Start: 12-14-2022 End: 02-13-2023 Comprehensive metabolic 2000 panel - Serum or Plasma COMP METABOLIC PANEL Lab Routine Malignant neoplasm of head of pancreas (HCC) Expected: 12/14/2022 (Approximate), Expires: 02/13/2023 [facility] Work Phone: Comment on above: Expected: 12/14/2022 (Approximate), Expires: 02/13/2023 Start: 12-07-2022 End: 02-06-2023 CBC W Auto Differential panel - Blood CBC + DIFF Lab Routine Malignant neoplasm of head of pancreas (HCC) Expected: 12/07/2022, Expires: 02/06/2023 [facility] Work Phone: Comment on above: Expected: 12/07/2022 , Expires: 02/06/2023 Start: 12-05-2022 End: 02-04-2023 Cancer Ag 19-9 [Units/volume] in Serum or Plasma CA 19-9 BLD Lab Routine Malignant neoplasm of head of pancreas (HCC) Anemia, unspecified type Type 2 diabetes mellitus without complication, with long-term current use of insulin (HCC) Expected: 12/05/2022, Expires: 02/04/2023 [facility] Work Phone: Comment on above: Expected: 12/05/2022 , Expires: 02/04/2023 Start: 12-05-2022 End: 02-04-2023 CBC W Auto Differential panel - Blood [facility] Work Phone: Comment on above: Expected: 12/05/2022 , Expires: 02/04/2023 Start: 12-05-2022 End: 02-04-2023 Comprehensive metabolic 2000 panel - Serum or Plasma COMP METABOLIC PANEL Lab Routine Malignant neoplasm of head of pancreas (HCC) Anemia, unspecified type Type 2 diabetes mellitus without complication, with long-term current use of insulin (HCC) Expected: 12/05/2022, Expires: 02/04/2023 [facility] Work Phone: Comment on above: Expected: 12/05/2022 , Expires: 02/04/2023 Start: 11-23-2022 End: 01-23-2023 CBC W Auto Differential panel - Blood CBC + DIFF Lab Routine Malignant neoplasm of head of pancreas (HCC) Expected: 11/23/2022, Expires: 01/23/2023 [facility] Work Phone: Comment on above: Expected: 11/23/2022 , Expires: 01/23/2023 Start: 11-23-2022 End: 01-23-2023 Comprehensive metabolic 2000 panel - Serum or Plasma COMP METABOLIC PANEL Lab Routine Malignant neoplasm of head of pancreas (HCC) Expected: 11/23/2022, Expires: 01/23/2023 [facility] Work Phone: Comment on above: Expected: 11/23/2022 , Expires: 01/23/2023 Start: 11-10-2022 End: 01-10-2023 Cancer Ag 19-9 [Units/volume] in Serum or Plasma [facility] Work Phone: Comment on above: Expected: 11/10/2022 (Approximate), Expires: 01/10/2023 Start: 11-10-2022 End: 01-10-2023 CBC W Auto Differential panel - Blood CBC + DIFF Lab Routine Malignant neoplasm of head of pancreas (HCC) Expected: 11/10/2022 (Approximate), Expires: 01/10/2023 [facility] Work Phone: Comment on above: Expected: 11/10/2022 (Approximate), Expires: 01/10/2023 Start: 11-10-2022 End: 01-10-2023 Comprehensive metabolic 2000 panel - Serum or Plasma COMP METABOLIC PANEL Lab Routine Malignant neoplasm of head of pancreas (HCC) Expected: 11/10/2022 (Approximate), Expires: 01/10/2023 [facility] Work Phone: Comment on above: Expected: 11/10/2022 (Approximate), Expires: 01/10/2023 Start: 11-10-2022 End: 10-29-2023 Ct abdomen & pelvis w/contrast material CT ABD/PEL W IVCON Radiology Routine Malignant neoplasm of head of pancreas (HCC) Expected: 11/10/2022 (Approximate), Expires: 10/29/2023 [facility] Work Phone: Comment on above: Expected: 11/10/2022 (Approximate), Expires: 10/29/2023 Start: 11-10-2022 End: 10-29-2023 CT CHEST W IVCON CT CHEST W IVCON Radiology Routine Malignant neoplasm of head of pancreas (HCC) Expected: 11/10/2022 (Approximate), Expires: 10/29/2023 [facility] Work Phone: Comment on above: Expected: 11/10/2022 (Approximate), Expires: 10/29/2023 Start: 09-13-2022 End: 11-13-2022 Cancer Ag 19-9 [Units/volume] in Serum or Plasma CA 19-9 BLD Lab Routine Malignant neoplasm of head of pancreas (HCC) Expected: 09/13/2022 (Approximate), Expires: 11/13/2022 [facility] Work Phone: Comment on above: Expected: 09/13/2022 (Approximate), Expires: 11/13/2022 Start: 09-13-2022 End: 11-13-2022 CBC W Auto Differential panel - Blood CBC + DIFF Lab Routine Malignant neoplasm of head of pancreas (HCC) Expected: 09/13/2022 (Approximate), Expires: 11/13/2022 [facility] Work Phone: Comment on above: Expected: 09/13/2022 (Approximate), Expires: 11/13/2022 Start: 09-13-2022 End: 11-13-2022 Comprehensive metabolic 2000 panel - Serum or Plasma COMP METABOLIC PANEL Lab Routine Malignant neoplasm of head of pancreas (HCC) Expected: 09/13/2022 (Approximate), Expires: 11/13/2022 [facility] Work Phone: Comment on above: Expected: 09/13/2022 (Approximate), Expires: 11/13/2022 Start: 08-03-2022 End: 10-03-2022 Cancer Ag 19-9 [Units/volume] in Serum or Plasma CA 19-9 BLD Lab Routine Malignant neoplasm of head of pancreas (HCC) Expected: 08/03/2022 (Approximate), Expires: 10/03/2022 [facility] Work Phone: Comment on above: Expected: 08/03/2022 (Approximate), Expires: 10/03/2022 Start: 08-03-2022 End: 10-03-2022 CBC W Auto Differential panel - Blood CBC + DIFF Lab Routine Malignant neoplasm of head of pancreas (HCC) Expected: 08/03/2022 (Approximate), Expires: 10/03/2022 [facility] Work Phone: Comment on above: Expected: 08/03/2022 (Approximate), Expires: 10/03/2022 Start: 08-03-2022 End: 10-03-2022 Comprehensive metabolic 2000 panel - Serum or Plasma COMP METABOLIC PANEL Lab Routine Malignant neoplasm of head of pancreas (HCC) Expected: 08/03/2022 (Approximate), Expires: 10/03/2022 [facility] Work Phone: Comment on above: Expected: 08/03/2022 (Approximate), Expires: 10/03/2022 Start: 08-03-2022 End: 07-29-2023 Ct abdomen & pelvis w/contrast material CT ABD/PEL W IVCON Radiology Routine Malignant neoplasm of head of pancreas (HCC) Expected: 08/03/2022, Expires: 07/29/2023 [facility] Work Phone: Comment on above: Expected: 08/03/2022 , Expires: 07/29/2023 Start: 08-03-2022 End: 07-29-2023 CT CHEST W IVCON CT CHEST W IVCON Radiology Routine Malignant neoplasm of head of pancreas (HCC) Expected: 08/03/2022, Expires: 07/29/2023 [facility] Work Phone: Comment on above: Expected: 08/03/2022 , Expires: 07/29/2023 Start: 06-01-2022 End: 08-01-2022 Cancer Ag 19-9 [Units/volume] in Serum or Plasma [facility] Work Phone: Comment on above: Expected: 06/01/2022 (Approximate), Expires: 08/01/2022 Start: 06-01-2022 End: 08-01-2022 CBC W Auto Differential panel - Blood CBC + DIFF Lab Routine Malignant neoplasm of head of pancreas (HCC) Expected: 06/01/2022 (Approximate), Expires: 08/01/2022 [facility] Work Phone: Comment on above: Expected: 06/01/2022 (Approximate), Expires: 08/01/2022 Start: 06-01-2022 End: 08-01-2022 Comprehensive metabolic 2000 panel - Serum or Plasma COMP METABOLIC PANEL Lab Routine Malignant neoplasm of head of pancreas (HCC) Expected: 06/01/2022 (Approximate), Expires: 08/01/2022 [facility] Work Phone: Comment on above: Expected: 06/01/2022 (Approximate), Expires: 08/01/2022 Start: 06-01-2022 End: 06-10-2023 Ct abdomen & pelvis w/contrast material CT ABD/PEL W IVCON Radiology Routine Malignant neoplasm of head of pancreas (HCC) Expected: 06/01/2022, Expires: 06/10/2023 [facility] Work Phone: Comment on above: Expected: 06/01/2022 , Expires: 06/10/2023 Start: 06-01-2022 End: 06-10-2023 CT CHEST W IVCON CT CHEST W IVCON Radiology Routine Malignant neoplasm of head of pancreas (HCC) Expected: 06/01/2022, Expires: 06/10/2023 [facility] Work Phone: Comment on above: Expected: 06/01/2022 , Expires: 06/10/2023 Start: 05-22-2022 ADVANCE DIRECTIVE DISCUSSION ADVANCE DIRECTIVE DISCUSSION [facility] Start: 05-22-2022 DEPRESSION ASSESSMENT DEPRESSION ASS ESSMENT [facility] Start: 05-13-2022 End: 07-13-2022 Cancer Ag 19-9 [Units/volume] in Serum or Plasma CA 19-9 BLD Lab Routine Malignant neoplasm of head of pancreas (HCC) Anemia, unspecified type Expected: 05/13/2022, Expires: 07/13/2022 [facility] Work Phone: Comment on above: Expected: 05/13/2022 , Expires: 07/13/2022 Start: 05-13-2022 End: 07-13-2022 CBC W Auto Differential panel - Blood CBC + DIFF Lab Routine Malignant neoplasm of head of pancreas (HCC) Anemia, unspecified type Expected: 05/13/2022, Expires: 07/13/2022 [facility] Work Phone: Comment on above: Expected: 05/13/2022 , Expires: 07/13/2022 Start: 05-13-2022 End: 07-13-2022 Comprehensive metabolic 2000 panel - Serum or Plasma COMP METABOLIC PANEL Lab Routine Malignant neoplasm of head of pancreas (HCC) Anemia, unspecified type Expected: 05/13/2022, Expires: 07/13/2022 [facility] Work Phone: Comment on above: Expected: 05/13/2022 , Expires: 07/13/2022 Start: 05-11-2022 End: 07-11-2022 CREATININE BLD CREATININE BLD Lab Routine Malignant neoplasm of head of pancreas (HCC) Expected: 05/11/2022, Expires: 07/11/2022 [facility] Work Phone: Comment on above: Expected: 05/11/2022 , Expires: 07/11/2022 Start: 04-06-2022 End: 06-06-2022 Cancer Ag 19-9 [Units/volume] in Serum or Plasma CA 19-9 BLD Lab Routine Malignant neoplasm of head of pancreas (HCC) Expected: 04/06/2022, Expires: 06/06/2022 [facility] Work Phone: Comment on above: Expected: 04/06/2022 , Expires: 06/06/2022 Start: 04-06-2022 End: 06-06-2022 CBC W Auto Differential panel - Blood [facility] Work Phone: Comment on above: Expected: 04/06/2022 , Expires: 06/06/2022 Start: 04-06-2022 End: 06-06-2022 Comprehensive metabolic 2000 panel - Serum or Plasma COMP METABOLIC PANEL Lab Routine Malignant neoplasm of head of pancreas (HCC) Expected: 04/06/2022, Expires: 06/06/2022 [facility] Work Phone: Comment on above: Expected: 04/06/2022 , Expires: 06/06/2022 Start: 03-30-2022 End: 05-30-2022 Cancer Ag 19-9 [Units/volume] in Serum or Plasma [facility] Work Phone: Comment on above: Expected: 03/30/2022 , Expires: 05/30/2022 Start: 03-30-2022 End: 05-30-2022 CBC W Auto Differential panel - Blood CBC + DIFF Lab Routine Malignant neoplasm of head of pancreas (HCC) Expected: 03/30/2022, Expires: 05/30/2022 [facility] Work Phone: Comment on above: Expected: 03/30/2022 , Expires: 05/30/2022 Start: 03-30-2022 End: 05-30-2022 Cobalamin (Vitamin B12) [Mass/volume] in Serum or Plasma [facility] Work Phone: Comment on above: Expected: 03/30/2022 , Expires: 05/30/2022 Start: 03-30-2022 End: 05-30-2022 Comprehensive metabolic 2000 panel - Serum or Plasma COMP METABOLIC PANEL Lab Routine Malignant neoplasm of head of pancreas (HCC) Expected: 03/30/2022, Expires: 05/30/2022 [facility] Work Phone: Comment on above: Expected: 03/30/2022 , Expires: 05/30/2022 Start: 03-23-2022 End: 05-23-2022 CBC W Auto Differential panel - Blood CBC + DIFF Lab Routine Malignant neoplasm of head of pancreas (HCC) Expected: 03/23/2022 (Approximate), Expires: 05/23/2022 [facility] Work Phone: Comment on above: Expected: 03/23/2022 (Approximate), Expires: 05/23/2022 Start: 03-23-2022 End: 05-23-2022 Comprehensive metabolic 2000 panel - Serum or Plasma COMP METABOLIC PANEL Lab Routine Malignant neoplasm of head of pancreas (HCC) Expected: 03/23/2022 (Approximate), Expires: 05/23/2022 [facility] Work Phone: Comment on above: Expected: 03/23/2022 (Approximate), Expires: 05/23/2022 Start: 03-16-2022 End: 05-16-2022 CBC W Auto Differential panel - Blood CBC + DIFF Lab Routine Malignant neoplasm of head of pancreas (HCC) Expected: 03/16/2022 (Approximate), Expires: 05/16/2022 [facility] Work Phone: Comment on above: Expected: 03/16/2022 (Approximate), Expires: 05/16/2022 Start: 03-16-2022 End: 05-16-2022 Comprehensive metabolic 2000 panel - Serum or Plasma COMP METABOLIC PANEL Lab Routine Malignant neoplasm of head of pancreas (HCC) Expected: 03/16/2022 (Approximate), Expires: 05/16/2022 [facility] Work Phone: Comment on above: Expected: 03/16/2022 (Approximate), Expires: 05/16/2022 Start: 03-16-2022 End: 05-16-2022 Ferritin [Mass/volume] in Serum or Plasma [facility] Work Phone: Comment on above: Expected: 03/16/2022 , Expires: 05/16/2022 Start: 03-16-2022 End: 05-16-2022 Folate [Mass/volume] in Serum or Plasma [facility] Work Phone: Comment on above: Expected: 03/16/2022 , Expires: 05/16/2022 Start: 03-16-2022 End: 05-16-2022 Iron and Iron binding capacity panel - Serum or Plasma [facility] Work Phone: Comment on above: Expected: 03/16/2022 , Expires: 05/16/2022 Start: 03-16-2022 End: 05-16-2022 MISC SEND OUT TST 1 [facility] Work Phone: Comment on above: Expected: 03/16/2022 , Expires: 05/16/2022 Start: 03-08-2022 End: 05-08-2022 Cancer Ag 19-9 [Units/volume] in Serum or Plasma CA 19-9 BLD Lab Routine Malignant neoplasm of head of pancreas (HCC) Expected: 03/08/2022 (Approximate), Expires: 05/08/2022 [facility] Work Phone: Comment on above: Expected: 03/08/2022 (Approximate), Expires: 05/08/2022 Start: 03-08-2022 End: 05-08-2022 CBC W Auto Differential panel - Blood CBC + DIFF Lab Routine Malignant neoplasm of head of pancreas (HCC) Expected: 03/08/2022 (Approximate), Expires: 05/08/2022 [facility] Work Phone: Comment on above: Expected: 03/08/2022 (Approximate), Expires: 05/08/2022 Start: 03-08-2022 End: 05-08-2022 Comprehensive metabolic 2000 panel - Serum or Plasma COMP METABOLIC PANEL Lab Routine Malignant neoplasm of head of pancreas (HCC) Expected: 03/08/2022 (Approximate), Expires: 05/08/2022 [facility] Work Phone: Comment on above: Expected: 03/08/2022 (Approximate), Expires: 05/08/2022 Start: 03-08-2022 End: 05-08-2022 MISC SEND OUT TST 1 MISC SEND OUT TST 1 Lab Routine Malignant neoplasm of head of pancreas (HCC) Expected: 03/08/2022 (Approximate), Expires: 05/08/2022 [facility] Work Phone: Comment on above: Expected: 03/08/2022 (Approximate), Expires: 05/08/2022 Start: 03-01-2022 End: 03-24-2023 CT CHEST W IVCON CT CHEST W IVCON Radiology Routine Malignant neoplasm of head of pancreas (HCC) Expected: 03/01/2022, Expires: 03/24/2023 [facility] Work Phone: Comment on above: Expected: 03/01/2022 , Expires: 03/24/2023 Start: 02-23-2022 End: 04-25-2022 PT panel - Platelet poor plasma by Coagulation assay PROTHROMBIN TIME/PT Lab Routine Malignant neoplasm of pancreas, unspecified location of malignancy (HCC) Expected: 02/23/2022, Expires: 04/25/2022 [facility] Work Phone: Comment on above: Expected: 02/23/2022 , Expires: 04/25/2022 Start: 01-20-2022 Influenza vaccination C [facility] Start: 12-04-2021 Colonoscopy COLONOSCOPY [facility] Start: 12-04-2021 COLORECTAL CANCER SCREENING COLORECTAL CANCER SCREENING [facility] Start: 12-04-2021 Screening for malign ant neoplasm of colon [facility] Start: 05-22-2021 ADVANCE DIRECTIVE DISCUSSION ADVANCE DIRECTIVE DISCUSSION [facility] Start: 05-22-2021 DEPRESSION ASSESSMENT DEPRESSION ASS ESSMENT [facility] Start: 03-06-2021 Influenza vaccination LUNG CANCER SC REENING [facility] Start: 03-02-2021 Urine screening for protein Diabetes: Urine Protein Screening [facility] Start: 02-21-2021 COVID-19 VACCINE (2 - Booster for [place] series) COVID-19 VACCINE (2 - Booster for [place] series) [facility] Start: 01-24-2021 COVID-19 VACCINE (2 - [place] risk series) COVID-19 VACCINE (2 - [place] risk series) [facility] Start: 01-20-2021 Influenza vaccination INFLUENZA (#1) [facility] Start: 11-23-2020 Hepatitis B surface antibody level LDL Cholesterol [facility] Start: 03-23-2020 Annual Wellness Visi t (AWV) Annual Wellness Visit (AWV) [facility] [place] Start: 03-18-2020 End: 03-18-2020 Office Visit 03/18/2020 Office Visit Oncology Dwayne Moy MD [address] [place] [address] [facility] Start: 01-21-2020 Influenza vaccination Flu vaccine (# 1) [place], [place] Start: 2016 Pneumococcal 65+ yea rs Vaccine (1 of 1 - PPSV23) Pneumococcal 65+ years Vaccine (1 of 1 - PPSV23) [place] Start: 2016 PNEUMOCOCCAL: 65+ (1 - PCV) PNEUMOCOCCAL: 65+ (1 - PCV) [facility] Start: 2016 PNEUMOVAX AGE 65 AND OVER WITH 5YR LOOKBACK (#1) PNEUMOVAX AGE 65 AND OVER WITH 5YR LOOKBACK (#1) [facility] Start: 2011 RSV Vaccine (1 - 1-d ose 60+ series) RSV Vaccine (1 - 1-dose 60+ series) [facility] Start: 2011 RSV Vaccine (1 - Ris k 60-74 years 1-dose series) RSV Vaccine (1 - Risk 60-74 years 1-dose series) [facility] Start: 2001 Screening for malign ant neoplasm of colon Colon cancer screen colonoscopy [place], [place] Start: 2001 Shingles Vaccine (1 of 2) Shingles Vaccine (1 of 2) [place] Start: 2001 SHINGRIX VACCINE (1 of 2) SHINGRIX VACCINE (1 of 2) [facility] Start: 1996 COLOGUARD (FIT-DNA) COLOGUARD (FIT-D NA) [facility] Start: [address] COLONOGRAPHY [facility] Start: 1996 FECAL OCCULT BLOOD FECAL OCCULT BLOO D [facility] Start: 1996 Screening for malign ant neoplasm of colon [facility] Start: [address] [facility] Start: 1991 Diabetes screen Diabetes screen [place], [place] Start: 1991 Lipid panel Lipid screen [place], [place] Start: 1970 DTaP/Tdap/Td vaccine (1 - Tdap) DTaP/Tdap/Td vaccine (1 - Tdap) [place] Start: 1970 SHINGRIX VACCINE (1 of 2) SHINGRIX VACCINE (1 of 2) [facility] Start: 1970 Urine microalbumin profile DTAP,TDAP,TD (1 - Tdap) [facility] Start: 1969 Annual PCP Team Squeegeer And Former jace Disease Visit Annual PCP Team Chronic Disease Visit [facility] Start: 1969 Anxiety Screening Anxiety Screening [facility] Start: 1969 Depression Screening Depression Scre ening [facility] Start: 1969 HEPATITIS C SCREENING HEPATITIS C [facility] Start: 1969 Hepatitis C screening Hepatitis C [facility] Start: 1963 Adult depression screening assessment DEPRESSION SCREENING [facility] Start: 1961 Diabetic foot examination Diabetic Foot Exam [facility] Start: 1961 Glaucoma screening [facility] Start: 1961 Hepatitis B screening Urine Albumin:Creatinine Ratio [facility] Start: 1957 Pneumococcal Vaccine : 65+ (1 - PCV) Pneumococcal Vaccine: 65+ (1 - PCV) [facility] Start: 1957 Pneumococcal Vaccine : 65+ (1 of 2 - PCV) Pneumococcal Vaccine: 65+ (1 of 2 - PCV) [facility] Start: 1957 PNEUMOCOCCAL: 65+ (1 - PCV) PNEUMOCOCCAL: 65+ (1 - PCV) [facility] Start: 1951 Abdominal aortic aneurysm screening [facility] Start: 1951 ABDOMINAL AORTIC ANEURYSM SCREENING ABDOMINAL AORTIC ANEURYSM SCREENING [facility] Start: 1951 Hepatitis C screening Hepatitis C [place], [place] Start: 1951 Screening for malign ant neoplasm of colon [facility] Cancer Ag 19-9 [Units/volume] in Serum or Plasma CA 19-9 BLD Lab Routine Malignant neoplasm of head of pancreas (HCC) 04/20/2022 9:46 AM EST [facility] Work Phone: Cancer Ag 19-9 [Units/volume] in Serum or Plasma CA 19-9 BLD Lab Routine Malignant neoplasm of head of pancreas (HCC) Anemia, unspecified type 05/11/2022 8:59 AM EST [facility] Work Phone: Cancer Ag 19-9 [Units/volume] in Serum or Plasma CA 19-9 BLD Lab Routine Malignant neoplasm of head of pancreas (HCC) 06/29/2022 10:17 AM [facility] [employer] Work Phone: Cancer Ag 19-9 [Units/volume] in Serum or Plasma CA 19-9 BLD Lab Routine Malignant neoplasm of head of pancreas (HCC) 08/02/2022 10:21 AM [facility] Work Phone: Cancer Ag 19-9 [Units/volume] in Serum or Plasma CA 19-9 BLD Lab Routine Malignant neoplasm of head of pancreas (HCC) 09/29/2022 10:18 AM [facility] Work Phone: Cancer Ag 19-9 [Units/volume] in Serum or Plasma CA 19-9 BLD Lab Routine 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) 02/01/2023 11:18 AM [facility] Work Phone: Cancer Ag 19-9 [Units/volume] in Serum or Plasma CA 19-9 BLD Lab Routine 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) Type 2 diabetes mellitus without complication, with long-term current use of insulin (HCC) LINDSEY (dyspnea on exertion) 04/05/2023 1:44 PM [employer] Work Phone: Cancer Ag 19-9 [Units/volume] in Serum or Plasma CA 19-9 BLD Lab Routine Type 2 diabetes mellitus without complication, with long-term current use of insulin (HCC) Severe protein-calorie malnutrition (HCC) Malignant neoplasm of head of pancreas (HCC) Anemia, unspecified type 05/05/2023 1:13 PM [employer] Work Phone: Cancer Ag 19-9 [Units/volume] in Serum or Plasma CA 19-9 BLD Lab Routine Malignant neoplasm of head of pancreas (HCC) 07/05/2023 10:33 AM [employer] Work Phone: Cancer Ag 19-9 [Units/volume] in Serum or Plasma CA 19-9 BLD Lab Routine Malignant neoplasm of head of pancreas (HCC) Type 2 diabetes mellitus without complication, with long-term current use of insulin (HCC) Neuropathy Severe protein-calorie malnutrition (HCC) 08/02/2023 10:23 AM [facility] Work Phone: Cancer Ag 19-9 [Units/volume] in Serum or Plasma CA 19-9 BLD Lab Routine Malignant neoplasm of head of pancreas (HCC) 08/23/2023 10:51 AM [facility] Work Phone: Cancer Ag 19-9 [Units/volume] in Serum or Plasma CA 19-9 Lab Routine Malignant neoplasm of head of pancreas (HCC) Neuropathy 10/03/2023 11:18 AM [facility] Work Phone: Cancer Ag 19-9 [Units/volume] in Serum or Plasma CA 19-9 Lab Routine Malignant neoplasm of head of pancreas (HCC) 10/31/2023 10:33 AM [facility] Work Phone: Cancer Ag 19-9 [Units/volume] in Serum or Plasma CA 19-9 Lab Routine Malignant neoplasm of head of pancreas (HCC) 11/20/2023 8:09 AM [facility] Work Phone: Cancer Ag 19-9 [Units/volume] in Serum or Plasma CA 19-9 Lab Routine Malignant neoplasm of head of pancreas (HCC) 02/12/2024 8:46 AM [facility] Work Phone: Clostridioides diffi cile toxin genes [Presence] in Stool by MIRTHA with probe detection C. DIFFICILE PCR Lab Routine Malignant neoplasm of head of pancreas (HCC) Diarrhea, unspecified type Ordered: 03/07/2022 [facility] Work Phone: Comment on above: Ordered: 03/07/2022 End: 01-20-2024 CT CHEST W IVCON PE CT CHEST W IVCON PE Radiology STAT Chest pain, unspecified type LINDSEY (dyspnea on exertion) 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) Anemia, unspecified type Type 2 diabetes mellitus without complication, with long-term current use of insulin (HCC) 1 Occurrences starting 12/21/2022 until 01/20/2024 [facility] Work Phone: Comment on above: 1 Occurrences starti ng 12/21/2022 until 01/20/2024 IR PORTOCATH PLACEMENT IR PORTOC ATH PLACEMENT Radiology Routine Malignant neoplasm of head of pancreas (HCC) Ordered: 02/22/2022 [facility] Work Phone: Comment on above: Ordered: 02/22/2022 Patient Education Head injury in adults [facility] Work Phone: Patient referral [facility] Work Phone: REFERRAL FOR ADDITIO NAL BIOMARKER AND MOLECULAR TESTING REFERRAL FOR ADDITIONAL BIOMARKER AND MOLECULAR TESTING Lab Routine Malignant neoplasm of head of pancreas (HCC) 02/27/2022 10:40 PM EDT [facility] Work Phone: RFA Portal vein View s W contrast IV IR PORTAL VENOGRAM Radiology STAT Central line complication, initial encounter Ordered: 11/29/2023 [facility] Work Phone: Comment on above: Ordered: 11/29/2023 UA DIP, URINE (POC) UA DIP, URIN E (POC) Lab Routine Malignant neoplasm of head of pancreas (HCC) Frequency of urination Ordered: 10/11/2023 [facility] Comment on above: Ordered: 10/11/2023 End: 10-02-2024 US Lower extremity veins - bilateral US LEG VEIN DVT [facility] Vascular Lab STAT Leg swelling 1 Occurrences starting 10/03/2023 until 10/02/2024 [facility] Comment on above: 1 Occurrences starti ng 10/03/2023 until 10/02/2024 End: 12-21-2024 XR Chest Single view XR CHEST 1V FRONTAL PORT Radiology Routine Malignant neoplasm of head of pancreas (HCC) Central line complication, initial encounter 1 Occurrences starting 11/22/2023 until 12/21/2024 [facility] Work Phone: Comment on above: 1 Occurrences starti ng 11/22/2023 until 12/21/2024 [facility] [place] [facility] Immunizations Immunization Date Immunization Notes Care Provider Fa cility 12-15-2022 tetanus toxoid, redu pascual diphtheria toxoid, and acellular pertussis vaccine, adsorbed II Giovanni Salinas Work Phone: [facility] 12-27-2020 COVID-19 vaccine ([place]) Eyad Manriquez MD Work Phone: [facility] Payers Date Payer Category Payer Self-pay [id number] 2019 Private Health Insurance [employer]ET[employer] A ETNA MEDICARE SUPPLEMENT [id number] 2019-Present [phone] [address] [address] [place] [address] Indemnity [id number] 2019 Private Health Insurance [id number] 2016 Medicare MEDICARE MEDICAR E A AND B [id number] 2016-Present [phone] [address] [address] [place] [address] Medicare [id number] 2016 Medicare [id number] 1959 Medicare [id number] 1959 Private Health Insurance CLI [id number] .[id number] 1951 Unknown [id number] 2.16.840.1.581381.3.579 .2.173 1951 Unknown [id number] 2.16.840.1.481487.3.579 .2.173 1951 Unknown [id number] 2.16.840.1.077527.3.579 .2.593 1951 Unknown [id number] 2.16.840.1.462588.3.579 .2.593 1951 Unknown [id number] 2.16.840.1.056896.3.579 .2.593 1951 Unknown [id number] 2.16.840.1.600333.3.579 .2.593 1951 Unknown [id number] 2.16.840.1.283075.3.579 .2.593 1951 Unknown [id number] 2.16.840.1.779323.3.579 .2.593 1951 Unknown [id number] 2.16.840.1.582528.3.579 .2.593 1951 Unknown [id number] 2.16.840.1.153449.3.579 .2.593 1951 Unknown [id number] 2.16.840.1.811251.3.579 .2.593 1951 Unknown [id number] 2.16.840.1.978884.3.579 .2.593 1951 Unknown [id number] 2.16.840.1.299365.3.579 .2.593 1951 Unknown [id number] 2.16.840.1.231597.3.579 .2.593 1951 Unknown [id number] 2.16.840.1.057965.3.579 .2.593 1951 Unknown [id number] 2.16.840.1.856376.3.579 .2.593 1951 Unknown [id number] 2.16.840.1.390711.3.579 .2.1259 1951 Unknown [id number] Unknown [id number] Social History Date Type Detail Facility Start: 03-09-2020 Tobacco smoking stat us [facility] Unknown if ever smoked [place] Start: 1950 Sex Assigned At Not on file [place] Start: 03-18-2020 End: 03-09-2022 Tobacco smoking status NHIS Former smoker [facility] Start: 03-18-1977 End: 11-20-2019 History of tobacco use Current smoker [place] Start: 03-18-1977 End: 11-20-2019 History of tobacco use Cigarette [place] Start: 03-18-2020 End: 02-12-2024 [facility] Start: 05-08-2020 End: 09-29-2022 Cigarettes smoked current (pack per day) - Reported 1 [facility] Start: 05-08-2020 End: 03-09-2022 Tobacco use and exposure Smokeless tobacco non-user [facility] Start: 03-24-2020 History SDOH Financial 5 [facility] Start: 03-24-2020 History SDOH Food Worry 1 [facility] Start: 03-24-2020 History SDOH Transpo rt Med 2 [facility] Start: 1950 Sex Assigned At Male C [facility] Start: 02-05-2022 End: 04-20-2022 Exposure to SARS-CoV-2 (event) Not sure [facility] History of tobacco use Passive smoker [facility] Start: 09-29-2022 End: 11-10-2022 Tobacco use panel [facility] How hard is it for y ou to pay for the very basics like food, housing, medical care, and heating Not hard at all [facility] (I/We) worried wheth er (my/our) food would run out before (I/we) got money to buy more. Never true [facility] Start: 01-13-2021 Gender identity Identifies as male gender (finding) [facility] Within the last year , have you [...] Equipment Origin al Text Equipment Identifier Dates [id number] Start: 10-26-2022 End: 06-08-2023 Comment on above: use to test BLOOD MCCARTHY GAR TWICE DAILY INJECT ONCE DAILY Tray Powerline Surecuff 5fr Polyurethane Catheter 1 Lumen Microintroducer - [id number] Start: 03-30-2020 Tray Powerline Surecuff 5fr Polyurethane Catheter 1 Lumen Microintroducer - [id number] Start: 12-15-2020 Mesh Surgipro Me dium Clear Polypropylene 2cm Surgical Nonabsorbable Plug - [id number] Start: 01-06-2021 Stent Kemmerer Viabi l 8mm Metal 80mm 200cm Endoprosthesis No Hole Full Cover - [id number] Start: 2021 [id number] Start: 03-02-2022 Comment on above: Description: Port in serted at [facility]; Saline only flushes 1 each by Other route in the morning and 1 each before bedtime. [id number] Start: 12-02-2022 Use as instructed [id number] Start: 11-17-2022 End: 11-17-2023 use to test BLOO D SUGAR TWICE DAILY [id number] Start: 10-26-2022 End: 06-08-2023 INJECT ONCE DAILY [id number] Start: 10-26-2022 End: 06-08-2023 use to test BLOO D SUGAR TWICE DAILY [id number] Start: 10-26-2022 End: 06-08-2023 Power Port 8f Si ngle Lumen Venous [id number] Start: 12-29-2023 USE DIRECTED to test BLOOD SUGAR IN THE MORNING and BEFORE bedtime [id number] Start: 02-19-2024 Clinical Notes 03-09-2020 to 03-18-2024 [...] add lab orders. Thanks. Christi Blum MA [facility] 03-18-2024 Miscellaneous Notes Patient coming in Monday03/27/24 for follow up treatment. Please add lab orders. Thanks. Christi Blum MA documented in this encounter [facility] 03-07-2024 Telephone encounter Note Pt notified and will be here today at 11 for treatment. Josephine Salomon RN [facility] Work Phone: 03-07-2024 Miscellaneous Notes Pt notified [...] when to restage. documented in this encounter [facility] 03-07-2024 Telephone encounter Note ----- Message from Vivek Smith MD sent at 03/06/2024 4:18 PM EDT ----- Please inform the patient that his tumor marker is relatively stable. We will continue with chemo as planned. When he returns in 3 weeks we will then discuss when to restage. [facility] 03-05-2024 Nurse Note Can patient take Tylenol? Janet Dotson MA [facility] 03-05-2024 Nurse Note Can patient take Tylenol? Janet Dotson MA documented in this encounter [facility] 03-04-2024 Note [facility] 03-04-2024 History of Present illness Narrative [...] Microsatellite stable, tumor mutational burden 2 KRAS [id number], RON [id number] positive LABORATORY DATA: Hemoglobin (g/dL) Date Value [...] 05/11/2022 (patient elected to stop chemo). Resumed Ware and Abraxane 11/23/2022 - 12/14/2022. Stopped due to poor tolerance. Restarted Ware and Abraxane dose reduced, 2 week on [...] 5. Hypotension The patient was admitted to [facility] 10/16/2023 with dehydration, hypoglycemia, and hypotension. Blood pressure currently stable on midodrine. Continue management per PCP. 6. Central line complication - ICD9: 996.74, ICD10: T82.9XXA Since October 2023 the patient had intermittent redness around the port tube under the skin over his right chest wall. Portogram 12/01/2023 at [facility] was negative. He was given oral antibiotics for possible infection and the symptoms resolved, but continued to recur with each infusion. The right chest infusaport was removed 12/29/2023 and was found to have a small tear noted in the catheter at/near the IJV entry. New Kwpkym-e-Ctku placed 12/29/2023. Vivek Smith MD documented in this encounter [facility] 02-10-2024 Note [facility] 02-10-2024 History of Present illness Narrative [...] Microsatellite stable, tumor mutational burden 2 KRAS [id number], RON [id number] positive LABORATORY DATA: Hemoglobin (g/dL) Date Value [...] 05/11/2022 (patient elected to stop chemo). Resumed Ware and Abraxane 11/23/2022 - 12/14/2022. Stopped due to poor tolerance. Restarted Ware and Abraxane dose reduced, 2 week on [...] 5. Hypotension The patient was admitted to [facility] 10/16/2023 with dehydration, hypoglycemia, and hypotension. Blood pressure currently stable on midodrine. Continue management per PCP. 6. Central line complication - ICD9: 996.74, ICD10: T82.9XXA Since October 2023 the patient had intermittent redness around the port tube under the skin over his right chest wall. Portogram 12/01/2023 at [facility] was negative. He was given oral antibiotics for possible infection and the symptoms resolved, but continued to recur with each infusion. The right chest infusaport was removed 12/29/2023 and was found to have a small tear noted in the catheter at/near the IJV entry. New Keavsv-c-Bysh placed 12/29/2023. Vivek Smith MD documented in this encounter [facility] 01-23-2024 History of Present illness Narrative PATIENT [...] Microsatellite stable, tumor mutational burden 2 KRAS [id number], RON [id number] positive LABORATORY DATA: Hemoglobin (g/dL) Date Value [...] 05/11/2022 (patient elected to stop chemo). Resumed Ware and Abraxane 11/23/2022 - 12/14/2022. Stopped due to poor tolerance. Restarted Ware and Abraxane dose reduced, 2 week on [...] 5. Hypotension The patient was admitted to [facility] 10/16/2023 with dehydration, hypoglycemia, and hypotension. Blood pressure currently stable on midodrine. Continue management per PCP. 6. Central line complication - ICD9: 996.74, ICD10: T82.9XXA Since October 2023 the patient had intermittent redness around the port tube under the skin over his right chest wall. Portogram 12/01/2023 at [facility] was negative. He was given oral antibiotics [...] which included preparing to see the patient, emwb-ao-ggdk patient care, completing clinical documentation, performing a medically appropriate examination, counseling and educating the patient/family/caregiver, ordering medications, tests, or procedures, independently interpreting results (not separately reported), communicating results to the patient/family/caregiver, and care coordination (not separately reported). documented in this encounter [facility] 01-23-2024 Note [facility] 01-04-2024 Telephone encounter Note Pt Brittni, informed of MM message and denies any questions, needs or concerns at this time. Appointment verified. Key Travis RN [facility] 01-04-2024 Miscellaneous Notes Pt , Brittni, informed of MM message and denies any questions, needs or concerns at this time. Appointment verified. Key Travis RN ----- Message from Greta Wetzel PA-C sent at 01/04/2024 11:40 AM EDT ----- Please call with improving ca19-9 documented in this encounter [facility] 01-04-2024 Telephone encounter Note ----- Message from Greta Wetzel PA-C sent at 01/04/2024 11:40 AM EDT ----- Please call with improving ca19-9 [facility] 01-03-2024 Note [facility] 01-03-2024 History of Present illness Narrative [...] Microsatellite stable, tumor mutational burden 2 KRAS [id number], RON [id number] positive LABORATORY DATA: Hemoglobin (g/dL) Date Value [...] 05/11/2022 (patient elected to stop chemo). Resumed Ware and Abraxane 11/23/2022 - 12/14/2022. Stopped due to poor tolerance. Restarted Ware and Abraxane dose reduced, 2 week on [...] 5. Hypotension The patient was admitted to [facility] 10/16/2023 with dehydration, hypoglycemia, and hypotension. Blood pressure currently stable on midodrine. Continue management per PCP. 6. Central line complication - ICD9: 996.74, ICD10: T82.9XXA Since October 2023 the patient had intermittent redness around the port tube under the skin over his right chest wall. Portogram 12/01/2023 at [facility] was negative. He was given oral antibiotics [...] which included preparing to see the patient, uput-us-vnsb patient care, completing clinical documentation, performing a medically appropriate examination, counseling and educating the patient/family/caregiver, ordering medications, tests, or procedures, independently interpreting results (not separately reported), communicating results to the patient/family/caregiver, and care coordination (not separately reported). documented in this encounter [facility] 01-02-2024 Telephone encounter Note Patient coming in Monday01/03/24 for follow up treatment. Please add lab orders. Thanks. Christi Blum MA [facility] 12-27-2023 Miscellaneous Notes You are scheduled for a Port Removal, On 12/29/2023. You are to arrive at 09:00 am and Report to [facility]: [facility]: Radiology Outpatient Desk [id number] You can [...] Labs: Lab-work needs to be drawn? No.. 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 Private car. You will need a responsible adult to accompany you to and from the procedure. 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 documented in this encounter [facility] 12-27-2023 Telephone encounter Note You are scheduled for a Port Removal, On 12/29/2023. You are to arrive at 09:00 am and Report to [facility]: [facility]: Radiology Outpatient Desk [id number] You can [...] Labs: Lab-work needs to be drawn? No.. 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 Private car. You will need a responsible adult to accompany you to and from the procedure. 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 [facility] 12-26-2023 Telephone encounter Note Called pt unable to leave message at Home #. Left message non detailed message on Cell phone to call back to Radiology Office # [facility] 12-26-2023 Miscellaneous Notes Called pt unable to leave message at Home #. Left message non detailed message on Cell phone to call back to Radiology Office # documented in this encounter [facility] 12-13-2023 Note [facility] 12-13-2023 History of Present illness Narrative [...] Daja Carnes RN documented in this encounter [facility] 12-10-2023 Note [facility] 12-10-2023 History of Present illness Narrative [...] his right chest wall. Portogram 12/01/2023 at [facility] was negative. He was given oral antibiotics for possible infection and the symptoms have resolved. He feels relatively well today and desires to proceed with treatment as planned. Redness around port tube under skin right upper CW. Portagrtam 11/30 at [facility] neg. Given oral abx. Better now [...] Microsatellite stable, tumor mutational burden 2 KRAS [id number], RON [id number] positive LABORATORY DATA: Hemoglobin (g/dL) Date Value [...] 05/11/2022 (patient elected to stop chemo). Resumed Ware and Abraxane 11/23/2022 - 12/14/2022. Stopped due to poor tolerance. Restarted Ware and Abraxane dose reduced, 2 week on [...] 5. Hypotension The patient was admitted to [facility] 10/16/2023 with dehydration, hypoglycemia, and hypotension. Blood pressure currently stable on midodrine. Continue management per PCP. 6. Central line complication - ICD9: 996.74, ICD10: T82.9XXA Since October 2023 the patient has had intermittent redness around the port tube under the skin over his right chest wall. Portogram 12/01/2023 at [facility] was negative. He was given oral antibiotics for possible infection and the symptoms have resolved. Will monitor closely for complications. If symptoms persist the port most likely would need to be changed. Vivek Smith MD documented in this encounter [facility] 12-05-2023 Telephone encounter Note Pt's notified of normal portogram results. Josephine Salomon RN [facility] Work Phone: 12-05-2023 Miscellaneous Notes Pt's notified of normal portogram results. Josephine Salomon RN documented in this encounter [facility] 11-29-2023 Telephone encounter Note Order faxed. Pt notified that we are ordering additional testing. Josephine Salomon RN [facility] Work Phone: 11-29-2023 Miscellaneous Notes Order faxed. Pt notified that we are ordering additional testing. Josephine Salomon RN Spoke with Mandi at [facility] who states they need a portogram [...] call back tomorrow morning to Mandi at [phone] ext [phone] Josephine Salomon RN Did the xray evaluate the catheter during injection of dye? We needed the actual tubing evaluated as this is where the redness occurs for him. To me, it looks like just a typical cxr, we used to do jxdr-x-gzkag or venograms, but I don't know if [...] Josephine Salomon RN documented in this encounter [facility] 11-29-2023 Telephone encounter Note Spoke with Mandi at [facility] who states they need a portogram order. Explained to Mandi that we do not have a portogram order. Will fax IR central line injection order and in comments put portogram. Mandi aware of pt's situation and what we're looking for and will schedule this according. Please sign pending orders. Thanks Josephine Salomon RN [facility] 11-28-2023 Telephone encounter Note Called and spoke with radiology. They do not know what needs to be ordered for this and request that we call back tomorrow morning to Mandi at [phone] ext [phone] Josephine Salomon RN [facility] 11-28-2023 Telephone encounter Note Did the xray evaluate the catheter during injection of dye? We needed the actual tubing evaluated as this is where the redness occurs for him. To me, it looks like just a typical cxr, we used to do jdks-e-ixtch or venograms, but I don't know if that is still possible. Greta Wetzel PA-C [facility] 11-28-2023 Telephone encounter Note Call received from pt's asking what is going to be done about pt's port and recurring infection. With both of patients last two treatments his port site became red and he was placed on antibiotics for this. Pt is still on his antibiotic currently. CXR was negative. Please advise Josephine Salomon RN [facility] 11-22-2023 Telephone encounter Note Signed. PSS: please schedule Greta Wetzel PA-C [facility] 11-22-2023 Miscellaneous Notes Signed. PSS: please schedule [...] Patient has requested the xray be scheduled @[facility] if not [facility]. He prefers not to be schedule@[facility] Rx and xray orders pended. PATIENT WOULD LIKE TO BE CALLED documented in this encounter [facility] 11-22-2023 Telephone encounter Note Patient has arrived [...] Patient has requested the xray be scheduled @[facility] if not [facility]. He prefers not to be schedule@[facility] Rx and xray orders pended. PATIENT WOULD LIKE TO BE CALLED [facility] 11-22-2023 Note [facility] 11-22-2023 History of Present illness Narrative [...] Lashaun Riojas RN documented in this encounter [facility] 11-19-2023 Note [facility] 11-19-2023 History of Present illness Narrative [...] Microsatellite stable, tumor mutational burden 2 KRAS [id number], RON [id number] positive LABORATORY DATA: Hemoglobin (g/dL) Date Value [...] 05/11/2022 (patient elected to stop chemo). Resumed Ware and Abraxane 11/23/2022 - 12/14/2022. Stopped due to poor tolerance. Restarted Ware and Abraxane dose reduced, 2 week on [...] 5. Hypotension The patient was admitted to [facility] 10/16/2023 with dehydration, hypoglycemia, and hypotension. Blood pressure currently stable on midodrine. Continue management per PCP. Vivek Smith MD documented in this encounter [facility] 11-17-2023 History of Present illness Narrative Radiology [...] PATIENT PRESENTS WITH AN IMPLANTABLE OR ATTACHED SEISMIC OBSERVER: No RADIOLOGY DEPARTMENT: CT; Exam(s) Completed: Chest Abdomen Pelvis PERIPHERAL IV DATA: Site assessment: Clean,Dry and Intact, Site disposition Discontinued SIGNED BY: RT Amanda(R) November 17, 2023 11:05 AM POWER port scanned 02/2022 documented in this encounter [facility] 11-17-2023 Note [facility] 11-17-2023 Note [facility] 11-02-2023 Note [facility] 11-02-2023 History of Present illness Narrative PATIENT NAME: Triinty Perry [facility] NO.: [id number] ATTENDING PHYSICIAN: Grace Bess MD DATE OF [...] lymph nodes. 2. NGS Tissue Based: KRAS [id number], EGFR amplified and RAC 1 Amplified , [...] covered stent 4. CT 01/2022- recurrence 5. Ware and Abraxane 03/16/2022-05/11/2022 ( elected to stop chemo) 6. Resumed Ware and Abraxane 11/23/2022- 12/14/2022- Stopped due to poor tolerance 7. Restarted Ware and Abraxane dose reduced, 2 week on [...] Range Status 10/31/2023 12.6 % Final Abs [place] Date Value Ref Range Status 10/31/2023 0.61 [...] rising CA 19-9 and elected to restart Ware and Abraxane 11/23/2022. However, he had a very poor tolerance of therapy and has had declinind QOL. Therapy was held at that time 12/14/2022 Discussed the current status and rising CA 199 and options of no therapy, repeat chemo with dose modifications and or Xeloda. He wants to restart Ware and Abraxane, which he was on 02/01/2023 and dose reduced and have a 2 week on and 2 week off schedule. 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 CT 04/2023 wit progressive disease. I had [...] which included preparing to see the patient, fnqj-sd-ogln patient care, completing clinical documentation, performing a medically appropriate examination, counseling and educating the patient/family/caregiver, ordering medications, tests, or procedures, independently interpreting results (not separately reported), and communicating results to the patient/family/caregiver. documented in this encounter [facility] 11-02-2023 Note [facility] 11-02-2023 History of Present illness Narrative [...] Lashaun Riojas RN documented in this encounter [facility] 10-31-2023 Note Addended by: GRACE COHEN on: 10/31/2023 11:48 AM Modules accepted: Orders [facility] 10-31-2023 Miscellaneous Notes Addended by: GRACE BESS on: 10/31/2023 11:48 AM Modules accepted: Orders documented in this encounter [facility] 10-31-2023 Note [facility] 10-31-2023 History of Present illness Narrative PATIENT NAME: Trinity Perry CLINIC NO.: [id number] ATTENDING PHYSICIAN: Grace Bess MD DATE OF [...] lymph nodes. 2. NGS Tissue Based: KRAS [id number], EGFR amplified and RAC 1 Amplified , [...] covered stent 4. CT 01/2022- recurrence 5. Ware and Abraxane 03/16/2022-05/11/2022 ( elected to stop chemo) 6. Resumed Ware and Abraxane 11/23/2022- 12/14/2022- Stopped due to poor tolerance 7. Restarted Ware and Abraxane dose reduced, 2 week on [...] Range Status 10/31/2023 12.6 % Final Abs [place] Date Value Ref Range Status 10/31/2023 0.61 [...] rising CA 19-9 and elected to restart Ware and Abraxane 11/23/2022. However, he had a very poor tolerance of therapy and has had declinind QOL. Therapy was held at that time 12/14/2022 Discussed the current status and rising CA 199 and options of no therapy, repeat chemo with dose modifications and or Xeloda. He wants to restart Ware and Abraxane, which he was on 02/01/2023 and dose reduced and have a 2 week on and 2 week off schedule. 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 CT 04/2023 wit progressive disease. I had [...] do not hesitate to contact me at [phone]. Grace Bess MD Hematology/Medical Oncology [facility] CC: Giovanni Hamlin MD I spent a total of 30 minutes on the date of the service which included preparing to see the patient, tifr-ca-erba patient care, completing clinical documentation, obtaining and/or reviewing separately obtained history, performing a medically appropriate examination, counseling and educating the patient/family/caregiver, ordering medications, tests, or procedures, and independently interpreting results (not separately reported). documented in this encounter [facility] 10-18-2023 Telephone encounter Note EMERGENCY ROOM CALL [...] Patient reminded of her follow-up appointment with [facility] provider, Dr Bess on 11/03/23: Yes Next Media Relations Director outreach with patient scheduled? As needed Discussed [...] next outreach appointment? YES Josephine Salomon RN [facility] Work Phone: 10-18-2023 Miscellaneous Notes EMERGENCY ROOM [...] Patient reminded of her follow-up appointment with [facility] provider, Dr Bess on 11/03/23: Yes Next Media Relations Director outreach with patient scheduled? As needed Discussed [...] well. Darline: can you get records from [place] please. Thanks Josephine Salomon RN documented in this encounter [facility] 10-17-2023 Telephone encounter Note Available records scanned. Patient is still there under observation. [facility] 10-17-2023 Telephone encounter Note Pt's calls stating pt went to the hospital last night because he wasn't responding to her. She states she doesn't think his glucometer is working right. Pt's sugar was much lower when the EMS checked it than what his was reading. states pt was very dehydrated as well. Darline: can you get records from [place] please. Thanks Josephine Salomon RN [facility] 10-17-2023 Telephone encounter Note LVM to notify pt that script he requested was sent. [facility] 10-17-2023 Miscellaneous Notes LVM to notify pt [...] send a message. documented in this encounter [facility] 10-13-2023 Telephone encounter Note Cipro sent [facility] 10-13-[address] Osorio- if you are okay sending a script [facility] [place] 10-13-2023 Telephone encounter Note Pt here for [...] vacation but requested we send a message. [facility] 10-11-2023 Note HNO ID: [id number] Author: SAMINA RAE MA Service: ? Author Type: Cloth Covered Helmet Puller Type: Progress Notes Filed: 10/11/2023 13:27 Note Text: Back office UA test performed. Results entered in Epic and doctor notified. Samina Rae MA [facility] 10-11-2023 History of Present illness Narrative Back office UA test performed. Results entered in [employer] and doctor notified. Samina Rae MA documented in this encounter [facility] 10-11-2023 Nurse Note Pt complaints of fatigue and weakness today. Samina Rae MA [facility] 10-11-2023 History of Present illness Narrative PATIENT NAME: Trinity Gupta [facility] NO.: [id number] ATTENDING PHYSICIAN: Grace Bess MD DATE OF [...] lymph nodes. 2. NGS Tissue Based: KRAS [id number], EGFR amplified and RAC 1 Amplified , [...] covered stent. 4. CT 01/2022- Recurrence. 5. Ware and Abraxane 03/16/2022-05/11/2022 (Elected to stop chemo). 6. Resumed Ware and Abraxane 11/23/2022- 12/14/2022- Stopped due to poor tolerance. 7. Restarted Ware and Abraxane dose reduced, 2 week on [...] Range Status 10/11/2023 7.7 % Final Abs [place] Date Value Ref Range Status 10/11/2023 0.77 [...] rising CA 19-9 and elected to restart Ware and Abraxane 11/23/2022. However, he had a very poor tolerance of therapy and has had decline in QOL. Therapy was held at that time 12/14/2022. Discussed the current status and rising CA 199 and options of no therapy, repeat chemo with dose modifications and or Xeloda. He wants to restart Ware and Abraxane, which he was on 02/01/2023 and dose reduced and have a 2 week on and 2 week off schedule. 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 CT 04/[address] Bess [...] which included preparing to see the patient, [id number] patient care, completing clinical documentation, performing a medically appropriate examination, counseling and educating the patient/family/caregiver, ordering medications, tests, or procedures, independently interpreting results (not separately reported), and communicating results to the patient/family/caregiver. documented in this encounter [facility] 10-11-2023 Note [facility] 10-11-2023 Nurse Note Pt complaints of fatigue and weakness today. Samina Rae MA documented in this encounter [facility] 10-05-2023 Telephone encounter Note Voicemail has not been set up yet. No way to leave a message. Josephine Salomon RN [facility] Work Phone: 10-05-2023 Miscellaneous Notes Voicemail has not been set up yet. No way to leave a message. Josephine Salomon RN ----- Message from Greta Wetzel PA-C sent at 10/04/2023 12:56 PM EDT ----- Please call with improving ca19-9 documented in this encounter [facility] 10-05-2023 Telephone encounter Note ----- Message from Greta Wetzel PA-C sent at 10/04/2023 12:56 PM EDT ----- Please call with improving ca19-9 [facility] 10-04-2023 Telephone encounter Note Pt's voicemail has not been set up yet. Unable to leave a message. Josephine Salomon RN [facility] Work Phone: 10-04-2023 Miscellaneous Notes Pt's voicemail has not been set up yet. Unable to leave a message. Josephine Salomon RN ----- Message from Greta Wetzel PA-C sent at 10/03/2023 4:09 PM EDT ----- Please call with negative cxr documented in this encounter [facility] 10-04-2023 Telephone encounter Note ----- Message from Greta Wetzel PA-C sent at 10/03/2023 4:09 PM EDT ----- Please call with negative cxr [facility] 10-04-2023 Telephone encounter Note Spoke with pt spouse. She discussed with pt. Legs not as swollen, will hold off for now and call back if needed. Denies further questions, needs or concerns at this time. KOFI Travis RN [facility] 10-04-2023 Miscellaneous Notes Spoke with [...] swelling if he wants. Greta Wetzel PA-C [facility] US department called with NEGATIVE DVT report. Key Travis RN Patient has been scheduled for STAT US today @ [place] 10/02 between 1 & 1:30 pm. If positive, Radiology will call w/ results. Ora Jones documented in this encounter [facility] 10-03-2023 Telephone encounter Note Spoke with spouse, Brittni.aware of negative DVT per US, and MM recommendation. Pt is home, she is driving. She will discuss with him and call tomorrow with decision on Lasix. Key Travis RN [facility] 10-03-2023 Telephone encounter Note Please inform the patient of negative DVT. We could start lasix 20 mg daily for a week and see if it helps the swelling if he wants. Greta Wetzel PA-C [facility] 10-03-2023 Telephone encounter Note [facility] US department called with NEGATIVE DVT report. Key Travis RN [facility] 10-03-2023 History of Present illness Narrative Radiology [...] PATIENT PRESENTS WITH AN IMPLANTABLE OR ATTACHED SEISMIC OBSERVER: No RADIOLOGY DEPARTMENT: General X-ray: Exam(s) Completed: Chest X-Ray PERIPHERAL IV DATA: Not applicable SIGNED BY: RT Amanda(R) October 03, 2023 12:12 PM documented in this encounter [facility] 10-03-2023 Note [facility] 10-03-2023 Telephone encounter Note Patient has been scheduled for STAT today @ [place] 10/02 between 1 & 1:30 pm. If positive, Radiology will call w/ results. Ora Jones [facility] 10-03-2023 History of Present illness Narrative PATIENT NAME: Trinity Perry [facility] NO.: [id number] ATTENDING PHYSICIAN: rGace Bess MD DATE OF SERVICE: October 03, [...] lymph nodes. 2. NGS Tissue Based: KRAS [id number], EGFR amplified and RAC 1 Amplified , [...] covered stent. 4. CT 01/2022- Recurrence. 5. Ware and Abraxane 03/16/2022-05/11/2022 (Elected to stop chemo). 6. Resumed Ware and Abraxane 11/23/2022- 12/14/2022- Stopped due to poor tolerance. 7. Restarted Ware and Abraxane dose reduced, 2 week on [...] Range Status 10/03/2023 12.7 % Final Abs [place] Date Value Ref Range Status 10/03/2023 1.25 [...] rising CA 19-9 and elected to restart Ware and Abraxane 11/23/2022. However, he had a very poor tolerance of therapy and has had decline in QOL. Therapy was held at that time 12/14/2022. Discussed the current status and rising CA 199 and options of no therapy, repeat chemo with dose modifications and or Xeloda. He wants to restart Ware and Abraxane, which he was on 02/01/2023 and dose reduced and have a 2 week on and 2 week off schedule. 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 CT 04/[address] Bess [...] which included preparing to see the patient, [id number] patient care, completing clinical documentation, performing a medically appropriate examination, counseling and educating the patient/family/caregiver, ordering medications, tests, or procedures, independently interpreting results (not separately reported), and communicating results to the patient/family/caregiver. documented in this encounter [facility] 10-03-2023 Note [facility] 09-25-2023 Telephone encounter Note I will place these orders so my day is not delayed, however Yordy saw the patient last and should be the one to place the orders. Greta Wetzel PA-C [facility] 09-25-2023 Miscellaneous Notes I will place these orders so my day is not delayed, however Yordy saw the patient last and should be the one to place the orders. Greta Wetzel PA-C Patient has an appt on 10/03/23. Would you like labs, if so place orders. Janet Dotson MA documented in this encounter [facility] 09-25-2023 Telephone encounter Note Patient has an appt on 10/03/23. Would you like labs, if so place orders. Janet Dotson MA [facility] 09-18-2023 Telephone encounter Note Pt's notified, verbalized understanding Josephine Salomon RN [facility] Work Phone: 09-18-2023 Miscellaneous Notes [...] Josephine Salomon RN documented in this encounter [facility] 09-18-2023 Telephone encounter Note Agree if fevers and or worse he needs to let us know [facility] 09-18-2023 Telephone encounter Note Pt's [...] this helps. Please advise Josephine Salomon RN [facility] 09-13-2023 Note [facility] 09-13-2023 History of Present illness Narrative PATIENT NAME: Trinity Perry [facility] NO.: [id number] ATTENDING PHYSICIAN: Grace Bess MD DATE OF [...] lymph nodes. 2. NGS Tissue Based: KRAS [id number], EGFR amplified and RAC 1 Amplified , [...] covered stent. 4. CT 01/2022- Recurrence. 5. Ware and Abraxane 03/16/2022-05/11/2022 (Elected to stop chemo). 6. Resumed Ware and Abraxane 11/23/2022- 12/14/2022- Stopped due to poor tolerance. 7. Restarted Ware and Abraxane dose reduced, 2 week on [...] Range Status 09/13/2023 15.2 % Final Abs [place] Date Value Ref Range Status 09/13/2023 0.59 [...] rising CA 19-9 and elected to restart Ware and Abraxane 11/23/2022. However, he had a very poor tolerance of therapy and has had declinind QOL. Therapy was held at that time 12/14/2022. Discussed the current status and rising CA 199 and options of no therapy, repeat chemo with dose modifications and or Xeloda. He wants to restart Ware and Abraxane, which he was on 02/01/2023 and dose reduced and have a 2 week on and 2 week off schedule. 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 CT 04/2023 wit progressive disease. I had [...] hesitate to contact Grace Bess MD at [phone]. Yordy Moncada APRN.[facility] Hematology/Medical Oncology [facility] CC: Giovanni Hamlin MD I spent a total of 30 minutes on the date of the service which included preparing to see the patient, [id number] patient care, completing clinical documentation, obtaining and/or reviewing separately obtained history, performing a medically appropriate examination, counseling and educating the patient/family/caregiver, ordering medications, tests, or procedures, independently interpreting results (not separately reported), and communicating results to the patient/family/caregiver. documented in this encounter [facility] 08-23-2023 Note [facility] 08-23-2023 History of Present illness Narrative PATIENT NAME: Trinity Perry [facility] NO.: [id number] ATTENDING PHYSICIAN: Grace Bess MD DATE OF [...] lymph nodes. 2. NGS Tissue Based: KRAS [id number], EGFR amplified and RAC 1 Amplified , [...] covered stent 4. CT 01/2022- recurrence 5. Ware and Abraxane 03/16/2022-05/11/2022 ( elected to stop chemo) 6. Resumed Ware and Abraxane 11/23/2022- 12/14/2022- Stopped due to poor tolerance 7. Restarted Ware and Abraxane dose reduced, 2 week on [...] Range Status 08/23/2023 15.0 % Final Abs [place] Date Value Ref Range Status 08/23/2023 0.72 [...] rising CA 19-9 and elected to restart Ware and Abraxane 11/23/2022. However, he had a very poor tolerance of therapy and has had declinind QOL. Therapy was held at that time 12/14/2022 Discussed the current status and rising CA 199 and options of no therapy, repeat chemo with dose modifications and or Xeloda. He wants to restart Ware and Abraxane, which he was on 02/01/2023 and dose reduced and have a 2 week on and 2 week off schedule. 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 CT 04/2023 wit progressive disease. I had [...] do not hesitate to contact me at [phone]. Grace Bess MD Hematology/Medical Oncology [facility] CC: Giovanni Hamlin MD I spent a total of 30 minutes on the date of the service which included preparing to see the patient, [id number] patient care, completing clinical documentation, obtaining and/or reviewing separately obtained history, performing a medically appropriate examination, counseling and educating the patient/family/caregiver, ordering medications, tests, or procedures, and independently interpreting results (not separately reported). documented in this encounter [facility] 08-21-2023 Miscellaneous Notes Patient coming in Monday01/03/24 for follow up treatment. Please add lab orders. Thanks. Christi Blum MA documented in this encounter [facility] 08-18-2023 History of Present illness Narrative Radiology [...] Complications port accessed via sterile technique pt angleica well good blood return pre and post [...] PATIENT PRESENTS WITH AN IMPLANTABLE OR ATTACHED SEISMIC OBSERVER: No RADIOLOGY DEPARTMENT: CT; Exam(s) Completed: Chest Abdomen Pelvis PERIPHERAL IV DATA: PORT 03/12/22 SIGNED BY: RT Janice(R) August 18, 2023 10:07 AM documented in this encounter [facility] 08-18-2023 Note [facility] 08-18-2023 Note [facility] 08-11-2023 Miscellaneous Notes Call placed to [...] Thanks! DEVYN Pelayo documented in this encounter [facility] 08-09-2023 Miscellaneous Notes Pt called [...] Josephine Salomon, RN documented in this encounter [facility] 08-02-2023 Note [facility] 08-02-2023 History of Present illness Narrative PATIENT NAME: Trinity Perry [facility] NO.: [id number] ATTENDING PHYSICIAN: Grace Bess MD DATE OF [...] lymph nodes. 2. NGS Tissue Based: KRAS [id number], EGFR amplified and RAC 1 Amplified , [...] covered stent 4. CT 01/2022- recurrence 5. Ware and Abraxane 03/16/2022-05/11/2022 ( elected to stop chemo) 6. Resumed Ware and Abraxane 11/23/2022- 12/14/2022- Stopped due to poor tolerance 7. Restarted Ware and Abraxane dose reduced, 2 week on [...] Range Status 08/02/2023 8.9 % Final Abs [place] Date Value Ref Range Status 08/02/2023 0.48 [...] rising CA 19-9 and elected to restart Ware and Abraxane 11/23/2022. However, he had a very poor tolerance of therapy and has had declinind QOL. Therapy was held at that time 12/14/2022 Discussed the current status and rising CA 199 and options of no therapy, repeat chemo with dose modifications and or Xeloda. He wants to restart Ware and Abraxane, which he was on 02/01/2023 and dose reduced and have a 2 week on and 2 week off schedule. 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 CT 04/2023 wit progressive disease. I had [...] do not hesitate to contact me at [phone]. Grace Bess MD Hematology/Medical Oncology [facility] CC: Giovanni Hamlin MD I spent a total of 30 minutes on the date of the service which included preparing to see the patient, [id number] patient care, completing clinical documentation, obtaining and/or reviewing separately obtained history, performing a medically appropriate examination, counseling and educating the patient/family/caregiver, ordering medications, tests, or procedures, and independently interpreting results (not separately reported). documented in this encounter [facility] 07-19-2023 Note [facility] 07-19-2023 History of Present illness Narrative [...] irinotecan, leucovorin, 5FU Previous Treatment(s): [facility] 12/04/2019, Ware/Abraxane Pt denies any chewing/swallowing issues, denies current [...] Dosing Weight: 71.5 kg Estimated kilocalorie needs: 1961-9591 kilocalories determined by 30-35 kcal/kg Estimated protein needs: 72-107 grams determined by 1.0-1.5 g/kg Dosing weight Estimated fluid needs: ~3897-8927 milliliters based on 1 mL per kcal [...] MS, RDN, LD documented in this encounter [facility] 07-19-2023 Note [facility] 07-19-2023 History of Present illness Narrative PATIENT NAME: Trinity Perry [facility] NO.: [id number] ATTENDING PHYSICIAN: Grace Bess MD DATE OF [...] lymph nodes. 2. NGS Tissue Based: KRAS [id number], EGFR amplified and RAC 1 Amplified , [...] covered stent 4. CT 01/2022- Recurrence. 5. Ware and Abraxane 03/16/2022-05/11/2022 ( elected to stop chemo). 6. Resumed Ware and Abraxane 11/23/2022- 12/14/2022- Stopped due to poor tolerance 7. Restarted Ware and Abraxane dose reduced, 2 week on [...] Range Status 07/19/2023 7.7 % Final Abs [place] Date Value Ref Range Status 07/19/2023 0.46 [...] rising CA 19-9 and elected to restart Ware and Abraxane 11/23/2022. However, he had a very poor tolerance of therapy and has had declinind QOL. Therapy was held at that time 12/14/2022. Discussed the current status and rising CA 199 and options of no therapy, repeat chemo with dose modifications and or Xeloda. He wants to restart Ware and Abraxane, which he was on 02/01/2023 and dose reduced and have a 2 week on and 2 week off schedule. 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 CT 04/2023 with progressive disease. We had [...] not hesitate to contact Dr. Bess at [phone]. Yordy Moncada APRN.[facility] Hematology/Medical Oncology [facility] CC: Giovanni Hamlin MD I spent a total of 30 minutes on the date of the service which included preparing to see the patient, [id number] patient care, completing clinical documentation, obtaining and/or reviewing separately obtained history, performing a medically appropriate examination, counseling and educating the patient/family/caregiver, ordering medications, tests, or procedures, independently interpreting results (not separately reported), and communicating results to the patient/family/caregiver. documented in this encounter [facility] 07-05-2023 Note [facility] 07-05-2023 History of Present illness Narrative PATIENT NAME: Trinity Perry [facility] NO.: [id number] ATTENDING PHYSICIAN: Grace Bess MD DATE OF [...] lymph nodes. 2. NGS Tissue Based: KRAS [id number], EGFR amplified and RAC 1 Amplified , [...] covered stent 4. CT 01/2022- Recurrence. 5. Ware and Abraxane 03/16/2022-05/11/2022 ( elected to stop chemo). 6. Resumed Ware and Abraxane 11/23/2022- 12/14/2022- Stopped due to poor tolerance 7. Restarted Ware and Abraxane dose reduced, 2 week on [...] Range Status 07/05/2023 6.9 % Final Abs [place] Date Value Ref Range Status 07/05/2023 0.41 [...] rising CA 19-9 and elected to restart Ware and Abraxane 11/23/2022. However, he had a very poor tolerance of therapy and has had declinind QOL. Therapy was held at that time 12/14/2022. Discussed the current status and rising CA 199 and options of no therapy, repeat chemo with dose modifications and or Xeloda. He wants to restart Ware and Abraxane, which he was on 02/01/2023 and dose reduced and have a 2 week on and 2 week off schedule. 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 CT 04/2023 with progressive disease. We had [...] not hesitate to contact Dr. Bess at [phone]. Yordy Moncada APRN.[facility] [employer] Hematology/Medical Oncology [facility] CC: Giovanni Hamlin MD I spent a total of 30 minutes on the date of the service which included preparing to see the patient, beno-lh-hxia patient care, completing clinical documentation, obtaining and/or reviewing separately obtained history, performing a medically appropriate examination, counseling and educating the patient/family/caregiver, ordering medications, tests, or procedures, independently interpreting results (not separately reported), and communicating results to the patient/family/caregiver. documented in this encounter [facility] 06-23-2023 Miscellaneous Notes Pt's calls requesting tumor marker results. Notified her that they were not drawn at his visit on Monday, and are ordered for next time. Josephine Salomon RN documented in this encounter [facility] 06-21-2023 Note [facility] 06-21-2023 Note [facility] 06-07-2023 Note [facility] 06-07-2023 Note [facility] 06-07-2023 Note [facility] 05-24-2023 Note [facility] 05-18-2023 History of Present illness Narrative [...] port scanned 03/02/2022-NS documented in this encounter [facility] 05-18-2023 Note [facility] 05-18-2023 Note [facility] 05-12-2023 Note [facility] 05-08-2023 Telephone encounter Note Please order Cre for upcoming CT-pt on nephrotoxic chemo Thank You! Vaishali Marie RN [facility] 05-08-2023 Miscellaneous Notes Please order Cre for upcoming CT-pt on nephrotoxic chemo Thank You! Vasihali Marie RN documented in this encounter [facility] 05-05-2023 Note HNO ID: [id number] Author: Daja Carnes RN Service: ? 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 Daja Carnes RN documented in this encounter [facility] 05-05-2023 Note [facility] 05-05-2023 History of Present illness Narrative PATIENT NAME: Trinity Perry [facility] NO.: [id number] ATTENDING PHYSICIAN: Grace Bess MD DATE OF [...] lymph nodes. 2. NGS Tissue Based: KRAS [id number], EGFR amplified and RAC 1 Amplified , [...] covered stent 4. CT 01/2022- recurrence 5. Ware and Abraxane 03/16/2022-05/11/2022 ( elected to stop chemo) 6. Resumed Ware and Abraxane 11/23/2022- 12/14/2022- Stopped due to poor tolerance 7. Restarted Ware and Abraxane dose reduced, 2 week on [...] Range Status 05/05/2023 7.7 % Final Abs [place] Date Value Ref Range Status 05/05/2023 1.12 [...] rising CA 19-9 and elected to restart Ware and Abraxane 11/23/2022. However, he had a very poor tolerance of therapy and has had declinind QOL. Therapy was held at that time 12/14/2022 Discussed the current status and rising CA 199 and options of no therapy, repeat chemo with dose modifications and or Xeloda. He wants to restart Ware and Abraxane, which he was on 02/01/2023 [...] do not hesitate to contact me at [phone]. Grace Bess MD Hematology/Medical Oncology [facility] CC: Giovanni Hamlin MD I spent a total of 30 minutes on the date of the service which included preparing to see the patient, [id number] patient care, completing clinical documentation, obtaining and/or reviewing separately obtained history, performing a medically appropriate examination, counseling and educating the patient/family/caregiver, ordering medications, tests, or procedures, and independently interpreting results (not separately reported). documented in this encounter [facility] 04-07-2023 Miscellaneous Notes Pt notified of results. Josephine Salomon RN ----- Message from Grace Bess MD sent at 04/07/2023 9:10 AM EST ----- Please call with tumor marker. documented in this encounter [facility] 04-05-2023 Miscellaneous Notes Addended by: YORDY MONCADA on: 04/05/2023 03:25 PM Modules accepted: Orders documented in this encounter [facility] 04-05-2023 History of Present illness Narrative PATIENT NAME: Trinity Perry [facility] NO.: [id number] ATTENDING PHYSICIAN: Grace Bess MD DATE OF [...] lymph nodes. 2. NGS Tissue Based: KRAS [id number], EGFR amplified and RAC 1 Amplified , [...] covered stent. 4. CT 01/2022- Recurrence. 5. Ware and Abraxane 03/16/2022-05/11/2022 ( elected to stop chemo) 6. Resumed Ware and Abraxane 11/23/2022- 12/14/2022- Stopped due to poor tolerance 7. Restarted Ware and Abraxane dose reduced, 2 week on [...] Range Status 04/05/2023 2.0 % Final Abs [place] Date Value Ref Range Status 04/05/2023 0.21 [...] rising CA 19-9 and elected to restart Ware and Abraxane 11/23/2022. However, he had a very poor tolerance of therapy and has had declined QOL. Therapy was held at that time 12/14/2022. CA 199 began to rise and options of no therapy, repeat chemo with dose modifications and/or Xeloda. He wanted to restart Ware and Abraxane, which he was on 02/01/2023 [...] chemotherapy and will monitor closely. Yordy Moncada APRN.ORTHOPEDIC SPECIALIST CC: Giovanni Hamlin MD I spent a total of 30 minutes on the date of the service which included preparing to see the patient, [id number]-mf-dwxi patient care, completing clinical documentation, obtaining and/or reviewing separately obtained history, performing a medically appropriate examination, counseling and educating the patient/family/caregiver, ordering medications, tests, or procedures, independently interpreting results (not separately reported), and communicating results to the patient/family/caregiver. documented in this encounter [facility] 04-05-2023 Note [facility] 04-04-2023 Miscellaneous Notes Pt notified of results. Josephine Salomon RN Please call with ca19-9 results documented in this encounter [facility] 03-30-2023 History of Present illness Narrative PATIENT NAME: Trinity Perry [facility] NO.: [id number] ATTENDING PHYSICIAN: Grace Bess MD DATE OF [...] lymph nodes. 2. NGS Tissue Based: KRAS [id number], EGFR amplified and RAC 1 Amplified , [...] covered stent 4. CT 01/2022- recurrence 5. Ware and Abraxane 03/16/2022-05/11/2022 ( elected to stop chemo) 6. Resumed Ware and Abraxane 11/23/2022- 12/14/2022- Stopped due to poor tolerance 7. Restarted Ware and Abraxane dose reduced, 2 week on [...] Range Status 03/30/2023 10.4 % Final Abs [place] Date Value Ref Range Status 03/30/2023 0.82 [...] rising CA 19-9 and elected to restart Ware and Abraxane 11/23/2022. However, he had a very poor tolerance of therapy and has had declined QOL. Therapy was held at that time 12/14/2022 CA 199 began to rise and options of no therapy, repeat chemo with dose modifications and/or Xeloda. He wanted to restart Ware and Abraxane, which he was on 02/01/2023 [...] Giovanni Hamlin MD documented in this encounter [facility] 03-30-2023 Note [facility] 03-08-2023 History of Present illness Narrative PATIENT NAME: Trinity Perry [facility] NO.: [id number] ATTENDING PHYSICIAN: Grace Bess MD DATE OF [...] lymph nodes. 2. NGS Tissue Based: KRAS [id number], EGFR amplified and RAC 1 Amplified , [...] covered stent 4. CT 01/2022- recurrence 5. Ware and Abraxane 03/16/2022-05/11/2022 ( elected to stop chemo) 6. Resumed Ware and Abraxane 11/23/2022- 12/14/2022- Stopped due to poor tolerance 7. Restarted Ware and Abraxane dose reduced, 2 week on [...] Range Status 03/01/2023 11.6 % Final Abs Ben Hill Date Value Ref Range Status 03/01/2023 0.94 [...] rising CA 19-9 and elected to restart Ware and Abraxane 11/23/2022. However, he had a very poor tolerance of therapy and has had declinind QOL. Therapy was held at that time 12/14/2022 Discussed the current status and rising CA 199 and options of no therapy, repeat chemo with dose modifications and or Xeloda. He wants to restart Ware and Abraxane, which he was on 02/01/2023 [...] do not hesitate to contact me at [phone]. Grace Bess MD Hematology/Medical Oncology [facility] CC: Giovanni Hamlin MD I spent a total of 30 minutes on the date of the service which included preparing to see the patient, [id number] patient care, completing clinical documentation, obtaining and/or reviewing separately obtained history, performing a medically appropriate examination, counseling and educating the patient/family/caregiver, ordering medications, tests, or procedures, and independently interpreting results (not separately reported). documented in this encounter [facility] 03-02-2023 Miscellaneous Notes Pt notified of results and is agreeable to this. Josephine Salomon RN ----- Message from Grace Bess MD sent at 03/02/2023 1:57 PM EDT ----- Tell him that his Tumor marker is stable and if he is ok we will continue the chemo for now documented in this encounter [facility] 02-08-2023 History of Present illness Narrative Dex discontinued from tx plan per due to elevated blood sugars. Florinda Rincon RN documented in this encounter [facility] 02-08-2023 History of Present illness Narrative PATIENT NAME: Trinity Perry [facility] NO.: [id number] ATTENDING PHYSICIAN: Grace Bess MD DATE OF [...] lymph nodes. 2. NGS Tissue Based: KRAS [id number], EGFR amplified and RAC 1 Amplified , [...] stent . 4. CT 01/2022- Recurrence. 5. Ware and Abraxane 03/16/2022-05/11/2022. (Elected to stop chemo) 6. Resumed Ware and Abraxane 11/23/2022- 12/14/2022- Stopped due to poor tolerance. 7. Restarted Ware and Abraxane dose reduced, 2 week on [...] Range Status 02/08/2023 4.3 % Final Abs Ben [place] Date Value Ref Range Status 02/08/2023 0.22 [...] rising CA 19-9 and elected to restart Ware and Abraxane 11/23/2022. However, he had a very poor tolerance of therapy and has had declinind QOL. Therapy was held at that time 12/14/2022. Restarted Ware and Abraxane 02/01/2023. Will continue with dose [...] hesitate to contact Grace Bess MD at [phone]. Yordy Moncada APRN.[facility] Hematology/Medical Oncology [facility] CC: Giovanni Hamlin MD I spent a total of 30 minutes on the date of the service which included preparing to see the patient, airi-fj-iyxh patient care, completing clinical documentation, obtaining and/or reviewing separately obtained history, performing a medically appropriate examination, counseling and educating the patient/family/caregiver, ordering medications, tests, or procedures, independently interpreting results (not separately reported), and communicating results to the patient/family/caregiver. documented in this encounter [facility] 02-01-2023 Miscellaneous Notes He likely [...] Elisha Reece RN documented in this encounter [facility] 02-01-2023 History of Present illness Narrative PATIENT NAME: Trinity Perry [facility] NO.: [id number] ATTENDING PHYSICIAN: Grace Bess MD DATE OF [...] lymph nodes. 2. NGS Tissue Based: KRAS [id number], EGFR amplified and RAC 1 Amplified , [...] covered stent 4. CT 01/2022- recurrence 5. Ware and Abraxane 03/16/2022-05/11/2022 ( elected to stop chemo) 6. Resumed Ware and Abraxane 11/23/2022- 12/14/2022- Stopped due to poor tolerance 7. Restarted Ware and Abraxane dose reduced, 2 week on [...] Range Status 02/01/2023 6.1 % Final Abs Ben [place] Date Value Ref Range Status 02/01/2023 0.70 [...] rising CA 19-9 and elected to restart Ware and Abraxane 11/23/2022. However, he had a very poor tolerance of therapy and has had declinind QOL. Therapy was held at that time 12/14/2022 Discussed the current status and rising CA 199 and options of no therapy, repeat chemo with dose modifications and Xeloda. He wants to restart Ware and Abraxane. Will dose reduce and have a 2 week on and 2 week off schedule Continue nutrition follow up Anemia- Improved off chemo DM- Follow endocrine See back next week for day 8 Thank you for the kind referral. If there are any questions and or concerns please do not hesitate to contact me at [phone]. Grace Bess MD Hematology/Medical Oncology [facility] CC: Giovanni Hamlin MD I spent a total of 30 minutes on the date of the service which included preparing to see the patient, wccz-ma-fuql patient care, completing clinical documentation, obtaining and/or reviewing separately obtained history, performing a medically appropriate examination, counseling and educating the patient/family/caregiver, ordering medications, tests, or procedures, and independently interpreting results (not separately reported). documented in this encounter [facility] 01-04-2023 History of Present illness Narrative PATIENT NAME: Trinity Perry [facility] NO.: [id number] ATTENDING PHYSICIAN: Grace Bess MD DATE OF [...] lymph nodes. 2. NGS Tissue Based: KRAS [id number], EGFR amplified and RAC 1 Amplified , [...] covered stent 4. CT 01/2022- recurrence 5. Ware and Abraxane 03/16/2022-05/11/2022 ( elected to stop chemo) 6. Resumed Ware and Abraxane 11/23/2022- 12/14/2022- Stopped due to [...] Range Status 01/04/2023 8.8 % Final Abs Ben Hill Date Value Ref Range Status 01/04/2023 0.87 [...] stenosis in 04/2021. His CT, 01/2022 with snady progression and he has recurrence. His initial disease state was very high risk. Post 4 cycles of therapy and with stable disease on CT 05/2022. Discussed the results and he wanted some time off chemo. Reviewed follow up imaging 10/2022 and still stable but he is more symptomatic and rising CA 19-9 and elected to restart Ware and Abraxane 11/23/2022. However, he has very [...] do not hesitate to contact me at [phone]. Grace Bess MD Hematology/Medical Oncology [facility] CC: Giovanni Hamlin MD I spent a total of 30 minutes on the date of the service which included preparing to see the patient, lmwr-jb-fsan patient care, completing clinical documentation, obtaining and/or [...] PA-C Call received from riley Choi at [facility] stating pt's CT is negative for PE. Shows subtle nodular tree-in-bud opacities predominantly in the right upper lobe concerning for infectious bronchiolitis. Josephine Salomon RN documented in this encounter [facility] 12-21-2022 History of Present illness Narrative Left sutures to forehead removed as ordered per Jacoby Wetzel PA-C, patient tolerated well, S/S of infections reinforced patient and spouse verbalizes understanding Lashaun Riojas RN documented in this encounter [facility] 12-21-2022 History of Present illness Narrative PATIENT NAME: Trinity Gupta [facility] NO.: [id number] ATTENDING PHYSICIAN: Grace Bess MD DATE OF [...] lymph nodes. 2. NGS Tissue Based: KRAS [id number], EGFR amplified and RAC 1 Amplified , [...] covered stent 4. CT 01/2022- recurrence 5. Ware and Abraxane 03/16/2022-05/11/2022 ( elected to stop chemo) 6. Resumed Ware and Abraxane 11/23/2022 HPI: Alfred returns for day 8 of treatment. He complains of weakness, fatigue and LINDSEY. He feel while at [facility] 12/15/22 and went to [facility] ER. Ct head and cervical spine were [...] Range Status 12/21/2022 8.5 % Final Abs [place] Date Value Ref Range Status 12/21/2022 0.32 [...] rising CA 19-9 and elected to restart Ware and Abraxane 11/23/2022. Ware dose was decreased with cycle 2 day [...] Giovanni Hamlin MD documented in this encounter [facility] 12-15-2022 Hospital Discharge instructions Additional Instructions Tetanus was updated today in emergency department Sutures should be removed in 5 to 7 days Apply ice to affected area Neosporin daily Sunscreen after healed to reduce scarring For signs of infection redness, swelling, purulent drainage follow-up immediately Follow-up with your doctor for recheck in the next 3 to 5 days [facility] Work Phone: 12-05-2022 History of Present illness Narrative PATIENT NAME: Trinity Perry [facility] NO.: [id number] ATTENDING PHYSICIAN: Grace Bess MD DATE OF [...] lymph nodes. 2. NGS Tissue Based: KRAS [id number], EGFR amplified and RAC 1 Amplified , [...] covered stent 4. CT 01/2022- recurrence 5. Ware and Abraxane 03/16/2022-05/11/2022 ( elected to stop chemo) 6. Resumed Ware and Abraxane 11/23/2022 HPI: Trinity returns for [...] Range Status 11/30/2022 4.3 % Final Abs Ben Hill Date Value Ref Range Status 11/30/2022 0.26 [...] rising CA 19-9 and elected to restart Ware and Abraxane 11/23/2022. Tolerating well, however, is having significant anemia, likely from chemotherapy. Will type and cross and transfuse 1 unit of PRBCs. He will return in 1 week for the next cycle of chemotherapy, and will like need dose reductions. Continue nutrition follow up DM- Follow endocrine Greta Wetzel PA-C CC: Giovanni Hamlin MD documented in this encounter [facility] 11-30-2022 History of Present illness Narrative PATIENT NAME: Trinity Perry [facility] NO.: [id number] ATTENDING PHYSICIAN: Grace Bess MD DATE OF [...] lymph nodes. 2. NGS Tissue Based: KRAS [id number], EGFR amplified and RAC 1 Amplified , [...] covered stent 4. CT 01/2022- recurrence 5. Ware and Abraxane 03/16/2022-05/11/2022 ( elected to stop chemo) 6. Resumed Ware and Abraxane 11/23/2022 HPI: Trinity Perry is [...] Range Status 11/30/2022 4.3 % Final Abs [place] Date Value Ref Range Status 11/30/2022 0.26 [...] rising CA 19-9 and elected to restart Ware and Abraxane 11/23/2022 Continue nutrition follow up Anemia- Will repeat CBC next week as he is more anemic with the start of the chemo DM- Follow endocrine RTC next week for cbc check Thank you for the kind referral. If there are any questions and or concerns please do not hesitate to contact me at [phone]. Grace Bess MD Hematology/Medical Oncology [facility] CC: Giovanni Hamlin MD I spent a total of 30 minutes on the date of the service which included preparing to see the patient, uovu-fm-[id number] patient care, completing clinical documentation, obtaining and/or reviewing separately obtained history, performing a medically appropriate examination, counseling and educating the patient/family/caregiver, ordering medications, tests, or procedures, and independently interpreting results (not separately reported). documented in this encounter [facility] 11-28-[address] [...] appt Thank you documented in this encounter [facility] 11-23-2022 History of Present illness Narrative PATIENT NAME: Trinity Gupta [facility] NO.: [id number] ATTENDING PHYSICIAN: Grace Bess MD DATE OF [...] lymph nodes. 2. NGS Tissue Based: KRAS [id number], EGFR amplified and RAC 1 Amplified , [...] covered stent 4. CT 01/2022- recurrence 5. 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 Today he complains of complete exhaustion . [...] Range Status 11/23/2022 7.1 % Final Abs [place] Date Value Ref Range Status 11/23/2022 0.77 [...] Giovanni Hamlin MD documented in this encounter [facility] 11-10-2022 Miscellaneous Notes Spoke with [...] Josephine Salomon RN documented in this encounter [facility] 11-10-2022 History of Present illness Narrative PATIENT NAME: Trinity Perry [facility] NO.: [id number] ATTENDING PHYSICIAN: Grace Bess MD DATE OF [...] lymph nodes. 2. NGS Tissue Based: KRAS [id number], EGFR amplified and RAC 1 Amplified , [...] covered stent 4. CT 01/2022- recurrence 5. Ware and Abraxane 03/16/2022-05/11/2022 ( elected to stop [...] Range Status 09/29/2022 8.0 % Final Abs [place] Date Value Ref Range Status 09/29/2022 0.68 [...] resuming theroay again and they agreed Restart Ware and Abraxane again next week. Continue nutrition follow up Anemia- Monitor- Improved Resume chemo next week Thank you for the kind referral. If there are any questions and or concerns please do not hesitate to contact me at [phone]. Grace Bess MD Hematology/Medical Oncology [facility] CC: Giovanni Hamlin MD I spent a total of 30 minutes on the date of the service which included preparing to see the patient, yfam-qk-tcxi patient care, completing clinical documentation, obtaining and/or reviewing separately obtained history, performing a medically appropriate examination, counseling and educating the patient/family/caregiver, ordering medications, tests, or procedures, and independently interpreting results (not separately reported). documented in this encounter [facility] 11-07-2022 Miscellaneous Notes Pt notified of results. Josephine Salomon RN ----- Message from Grace Bess MD sent at 11/06/2022 11:30 AM EDT ----- Call with stable CT scan and no evidence of progressive disease documented in this encounter [facility] 11-03-2022 History of Present illness Narrative Summary: IRB# [id number] Informed Consent CASE [id number] (IRB [id number]): Tissue [...] Clinical Research Nurse documented in this encounter [facility] 11-03-2022 History of Present illness Narrative Radiology [...] port accessed by hemon SIGNED BY: RT Conrelio(R) November 03, 2022 10:36 AM documented in this encounter [facility] 09-29-2022 History of Present illness Narrative PATIENT NAME: Trinity Perry [facility] NO.: [id number] ATTENDING PHYSICIAN: Grace Bess MD DATE OF [...] lymph nodes. 2. NGS Tissue Based: KRAS [id number], EGFR amplified and RAC 1 Amplified , [...] covered stent 4. CT 01/2022- recurrence 5. Ware and Abraxane 03/16/2022-05/11/2022 ( elected to stop chemo) HPI: Trinity Prery is a 72 year old year old [...] Range Status 08/02/2022 8.6 % Final Abs [place] Date Value Ref Range Status 08/02/2022 0.81 [...] do not hesitate to contact me at [phone]. Grace Bess MD Hematology/Medical Oncology [facility] CC: Giovanni Hamlin MD I spent a total of 30 minutes on the date of the service which included preparing to see the patient, rbpl-lc-rozz patient care, completing clinical documentation, obtaining and/or reviewing separately obtained history, performing a medically appropriate examination, counseling and educating the patient/family/caregiver, ordering medications, tests, or procedures, and independently interpreting results (not separately reported). documented in this encounter [facility] 08-02-2022 History of Present illness Narrative PATIENT NAME: Trinity Perry [facility] NO.: [id number] ATTENDING PHYSICIAN: Grace Bess MD DATE OF [...] lymph nodes. 2. NGS Tissue Based: KRAS [id number], EGFR amplified and RAC 1 Amplified , [...] covered stent 4. CT 01/2022- recurrence 5. Ware and Abraxane 03/16/2022-05/11/2022 ( elected to stop [...] Range Status 08/02/2022 8.6 % Final Abs [place] Date Value Ref Range Status 08/02/2022 0.81 [...] do not hesitate to contact me at [phone]. Grace Bess MD Hematology/Medical Oncology [facility] CC: Giovanni Hamlin MD I spent a total of 30 minutes on the date of the service which included preparing to see the patient, bidj-pd-lduh patient care, completing clinical documentation, obtaining and/or reviewing separately obtained history, performing a medically appropriate examination, counseling and educating the patient/family/caregiver, ordering medications, tests, or procedures, and independently interpreting results (not separately reported). documented in this encounter [facility] 07-27-2022 History of Present illness Narrative Radiology [...] TIME: 11:36 AM documented in this encounter [facility] 06-29-2022 History of Present illness Narrative PATIENT NAME: Trinity Perry [facility] NO.: [id number] ATTENDING PHYSICIAN: Grace Bess MD DATE OF [...] lymph nodes. 2. NGS Tissue Based: KRAS [id number], EGFR amplified and RAC 1 Amplified , [...] covered stent 4. CT 01/2022- recurrence 5. Ware and Abraxane 03/16/2022 HPI: Trinity Perry is [...] 06/29/2022 2.15 1.00 - 4.00 k/uL Final Ben [place]% Date Value Ref Range Status 06/29/2022 10.2 % Final Abs [place] Date Value Ref Range Status 06/29/2022 1.05 [...] do not hesitate to contact me at [phone]. Grace Bess MD Hematology/Medical Oncology [facility] CC: Giovanni Hamlin MD I spent a total of 30 minutes on the date of the service which included preparing to see the patient, ysll-ro-iqao patient care, completing clinical documentation, obtaining and/or reviewing separately obtained history, performing a medically appropriate examination, counseling and educating the patient/family/caregiver, ordering medications, tests, or procedures, and independently interpreting results (not separately reported). documented in this encounter [facility] 05-25-2022 History of Present illness Narrative Radiology [...] port scanned 03/02/2022-NS documented in this encounter [facility] 05-11-2022 Miscellaneous Notes Addended by: GRACE BESS on: 05/11/2022 09:59 AM Modules accepted: Orders documented in this encounter [facility] 05-11-2022 History of Present illness Narrative PATIENT NAME: Trinity Perry [facility] NO.: [id number] ATTENDING PHYSICIAN: Grace Bess MD DATE OF [...] lymph nodes. 2. NGS Tissue Based: KRAS [id number], EGFR amplified and RAC 1 Amplified , [...] covered stent 4. CT 01/2022- recurrence 5. Ware and Abraxane 03/16/2022 HPI: Trinity Perry is [...] 05/11/2022 1.49 1.00 - 4.00 k/uL Final Ben Hill% Date Value Ref Range Status 05/11/2022 12.7 % Final Abs Ben [place] Date Value Ref Range Status 05/11/2022 0.79 [...] high risk. Here for cycle 4 and Ware and Abraxane and will skip next week and plan imaging and see back in 3 weeks Continue nutrition follow up Anemia- Monitor. Thank you for the kind referral. If there are any questions and or concerns please do not hesitate to contact me at [phone]. Grace Bess MD Hematology/Medical Oncology [facility] CC: Giovanni Hamlin MD I spent a total of 30 minutes on the date of the service which included preparing to see the patient, opjr-tc-hckz patient care, completing clinical documentation, obtaining and/or reviewing separately obtained history, performing a medically appropriate examination, counseling and educating the patient/family/caregiver, ordering medications, tests, or procedures, and independently interpreting results (not separately reported). documented in this encounter [facility] 04-27-2022 History of Present illness Narrative PATIENT NAME: Trinity Perry [facility] NO.: [id number] ATTENDING PHYSICIAN: Grace Bess MD DATE OF [...] lymph nodes. 2. NGS Tissue Based: KRAS [id number], EGFR amplified and RAC 1 Amplified , [...] hesitate to contact Grace Bess MD at [phone]. Yordy Moncada APRN.[facility] Hematology/Medical Oncology [facility] CC: Giovanni Hamlin MD documented in this encounter [facility] 04-20-2022 Miscellaneous Notes Call received from [facility] needing clarification on gabapentin script. Script is written to be taken daily for a quantity of 30, but states for 14 days on the script. Discussed with Dr Bess and he would like this for a full 30 days. Orders given to pharmacist without difficulty. Josephine Salomon RN documented in this encounter [facility] 04-06-2022 History of Present illness Narrative PATIENT NAME: Trinity Perry [facility] NO.: [id number] ATTENDING PHYSICIAN: Grace Bess MD DATE OF [...] 03/30/2022 1.48 1.00 - 4.00 k/uL Final Ben [place]% Date Value Ref Range Status 03/30/2022 8.7 % Final Abs [place] Date Value Ref Range Status 03/30/2022 0.56 [...] very high risk. He was started on Ware and abraxane 03/09/2022 with good tolerance so [...] Giovanni Hamlin MD documented in this encounter [facility] 04-05-2022 Miscellaneous Notes Pt has reviewed his results on my chart Josephine Salomon RN ----- Message from Greta Wetzel PA-C sent at 03/31/2022 10:46 AM EST ----- Please call with ca19-9 documented in this encounter [facility] 03-30-2022 Miscellaneous Notes Call received from Candy, pharmacist at [facility], regarding gabapentin script. Discussed with Greta who states pt will be taking it for 30 days now because it's working well. Pharmacist notified of this and she will remove the portion of the sig that says for 14 days. Josephine Salomon RN documented in this encounter [facility] 03-30-2022 History of Present illness Narrative [facility]: [facility] NO.: [id number] ATTENDING PHYSICIAN: Grace Bess MD DATE OF [...] 03/30/2022 1.48 1.00 - 4.00 k/uL Final Ben [place]% Date Value Ref Range Status 03/30/2022 8.7 % Final Abs [place] Date Value Ref Range Status 03/30/2022 0.56 [...] very high risk. He was started on Ware and abraxane 03/09/2022 with good tolerance so far. Labs reviewed and stable. Proceed with cycle 2 day 1 today and return in 1 week for day 8. 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 Stable today, monitor Guardant 360 and tissue based NGS- still pending Medical Cancer genetics- germline testing negative Continue nutrition follow up Grtea Wetzel PA-C CC: Giovanni Hamlin MD documented in this encounter [facility] 03-28-2022 Miscellaneous Notes Hitesh Brady Results left on patient voicemail. Trinity Perry's Multi-Cancer panel plus preliminary evidence pancreatic cancer and pancreatitis genes through [employer] was negative for a pathogenic variant. Please see [employer] message for further discussion. Jose Antonio Emerson MS, [facility] Licensed, Certified Genetic Counselor documented in this encounter [facility] 03-17-2022 Miscellaneous Notes Pt's notified of negative stool results. Josephine Salomon RN documented in this encounter [facility] 03-16-2022 History of Present illness Narrative [facility] Consultation Note Genetic Counselor: Jose Antonio Emerson MS, [facility] Patient: Trinity Perry Patient Name and confirmed at initiation of visit. Appointment occurred via audiovisual communication through [employer] Virtual Visit. HIGH LEVEL SUMMARY: The [...] appropriate standard National Comprehensive Cancer Network and Japanese Cancer Society guidelines, with consideration of their [...] PALB2, PDGFRA, PHOX2B, PMS2, POLD1, POLE, POT1, QMNZP4N, PTCH1, PTEN, RAD50, RAD51C, RAD51D, RB1, RECQL4, RET, RUNX1, SDHA, SDHAF2, SDHB, SDHC, SDHD, SMAD4, SMARCA4, SMARCB1, SMARCE1, STK11, SUFU, TERC, TERT, NCOD005, TP53, TSC1, TSC2, VHL, WRN, and WT1. [...] greater than 50% of which was spent [id number] counseling. This plan is being carried out under the oversight of Dr. Marina Aaron. This note will also be sent to the referring provider via the electronic medical record. Jose Antonio Emerson MS, [facility] Licensed, Certified Genetic Counselor [facility] CC: Dr. Grace Aaron documented in this encounter [facility] 03-16-2022 History of Present illness Narrative Pt c/o neuropathy becoming more aggravating. Bilateral hands up to forearms. This is not new since starting treatment. This was discussed with Akshat Prakash at treatment chairside and he will be given a trial of neurontin to take prior to bedtime. No change in doses required. documented in this encounter [facility] 03-16-2022 Miscellaneous Notes Addended by: GRETA WETZEL on: 03/16/2022 11:21 AM Modules accepted: Orders documented in this encounter [facility] 03-16-2022 History of Present illness [...] MS, RDN, LD documented in this encounter [facility] 03-16-2022 Nurse Note Patient states that he has numbness in both hands and arms, he thinks it may be arthritits. Stomach is also queezy . He does states he feels short of breath, also has had some bleeding with brushing teeth and blowing nose. Janet Dotson MA documented in this encounter [facility] 03-16-2022 History of Present illness Narrative PATIENT NAME: Trinity Perry [facility] NO.: [id number] ATTENDING PHYSICIAN: Grace Bess MD DATE OF [...] 03/16/2022 1.38 1.00 - 4.00 k/uL Final [place]% Date Value Ref Range Status 03/16/2022 7.7 % Final Abs [place] Date Value Ref Range Status 03/16/2022 0.28 [...] very high risk. He was started on Ware and abraxane 03/09/2022 with good tolerance so [...] Giovanni Hamlin MD documented in this encounter [facility] 03-14-2022 Miscellaneous Notes CYCLE 1/DAY [...] attention and after hours number protocol. Josephine Salmoon RN documented in this encounter [facility] 03-10-2022 Miscellaneous Notes Pt's called construction project administrator physician last night with questions regarding antiemetics. [...] Josephine Salomon RN documented in this encounter [facility] 03-09-2022 History of Present illness [...] step-daughter and 1 step son care management associate arrangements needed: Na Grandchild(sherman): 3 Home Health Provider: No Community Services: No Candy Identified: No Sikh/Spirituality: Spiritual Are these practices or beliefs that may affect or influence treatment? Unknown EMPLOYMENT/FINANCIAL/HEALTH INSURANCE: Employment: Retired Income source: Social Security Insurance: Medicare with co-insurance Prescription coverage: Yes Is the patient appropriate for referral to [facility] COBRA Assistance program? No Financial Distress: No [...] EPIC: No Health Care Durable Power of Mill Roll Rewinder: Yes Scanned into EPIC: No Guardianship: NA [...] male with pancreatic cancer. Patient lives in [place], [place] with his Brittni Connor . Patient [...] in: DAVE Santos documented in this encounter [facility] 03-09-2022 Miscellaneous Notes Call received from pt's stating they are at [facility] in [place] waiting for pt's nausea medications. Call placed to our pharmacy and scripts will be transferred to [facility] in [place] shortly. Josephine Salomon RN documented in this encounter [facility] 03-09-2022 Miscellaneous Notes Patient assessed [...] cup from daughter (nurse in oncology in [place]) and will refrigerate specimen until his appointment [...] Josephine Salomon RN documented in this encounter [facility] 03-09-2022 Miscellaneous Notes 1st report of treatment-Benefit investigation complete. Patient is active with Medicare, LOC 80%, $233 deductible has $0 remaining. He carries Plan G [employer] supplement which will cover the 20% allowable balances. Estimate shows patient financial responsibility is $0 for each treatment in 2021. Called the patient to discuss, left a voicemail to return call. Electronically signed by Vaishali Kumar [facility] at 03/09/2022 11:58 AM EDT documented in this encounter [facility] 03-09-2022 History of Present illness Narrative Oncology Nutrition Therapy Initial Assessment RECOMMENDED MALNUTRITION DIAGNOSIS: NO MALNUTRITION IDENTIFIED Nutrition Diagnosis: Food and Nutrition related knowledge deficit related to lack of prior nutrition-related education as evidenced by verbalizes inaccurate or incomplete information OR no prior knowledge of need for [id number] related recommendations Nutrition Intervention: -aim for small [...] 1.0-1.3 g/kg Dosing weight Estimated fluid needs: ~1288-0222 milliliters based on 1 mL per kcal [...] MS, RDN, LD documented in this encounter [facility] 03-09-2022 History of Present illness Narrative PATIENT NAME: Trinity Perry [facility] NO.: [id number] ATTENDING PHYSICIAN: Grace Bess MD DATE OF [...] 03/07/2022 1.76 1.00 - 4.00 k/uL Final [place]% Date Value Ref Range Status 03/07/2022 6.4 % Final Abs [place] Date Value Ref Range Status 03/07/2022 0.69 [...] very high risk. Patient here to start Ware and Abraxane. Discussed AE again and he wishes to proceed. Guardant 360 and tissue based NGS- pending Medical Cancer genetics- Appontment pending Continue nutrition follow up See back in 1 week for day 8 Thank you for the kind referral. If there are any questions and or concerns please do not hesitate to contact me at [phone]. Grace Bess MD Hematology/Medical Oncology [facility] CC: Giovanni Hamlin MD I spent a total of 30 minutes on the date of the service which included preparing to see the patient, [id number] patient care, completing clinical documentation, obtaining and/or reviewing separately obtained history, performing a medically appropriate examination, counseling and educating the patient/family/caregiver, ordering medications, tests, or procedures, and independently interpreting results (not separately reported). documented in this encounter [facility] 03-07-2022 History of Present illness [...] Josephine Salomon RN documented in this encounter [facility] 03-07-2022 History of Present illness Narrative Radiology [...] port scanned 03/02/2022-NS documented in this encounter [facility] 03-04-2022 Miscellaneous Notes Pt will be in for education Monday. Please sign pending antiemetics for gem/abraxane. Thanks Josephine Salomon RN documented in this encounter [facility] 02-25-2022 Miscellaneous Notes You are scheduled for a Mediport Placement, On 03/02/2022. You are to arrive at 12:30 pm and Report to [facility] for Sedation Cases: [facility]: Enter through [facility] entrance. Proceed [...] if they are not done at a [facility] facility. . 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 Private car. You will need a responsible adult to accompany you to and from the procedure. 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 If you have any questions please call [phone] documented in this encounter [facility] 02-22-2022 Miscellaneous Notes Patient's appointments [...] Josephine Salomon RN documented in this encounter [facility] 02-22-2022 Miscellaneous Notes Pt saw Dr Bess this morning and has several questions at checkout regarding treatment. Questions answered and reassurance given. Josephine Salomon RN documented in this encounter [facility] 02-22-2022 History of Present illness Narrative PATIENT NAME: Trinity Perry [facility] NO.: [id number] ATTENDING PHYSICIAN: Grace Bess MD DATE OF [...] 0.55 (L) 1.00 - 4.00 k/uL Final [place]% Date Value Ref Range Status 02/05/2021 4.9 % Final Abs [place] Date Value Ref Range Status 02/05/2021 1.27 [...] need systemic therapy at this time. Discussed Ware and Abraxane based on the IMPACT trial and also the toxicity, Refer to Port placement Guardant 360 and tissue based NGS Refer to Medical Cancer genetics Refer to Nutrition Chemo teach Start therapy in 2 weeks Thank you for the kind referral. If there are any questions and or concerns please do not hesitate to contact me at [phone]. Grace Bess MD Hematology/Medical Oncology [facility] CC: Giovanni Hamlin MD I spent a total of 55 minutes on the date of the service which included preparing to see the patient, [id number] patient care, completing clinical documentation, obtaining and/or reviewing separately obtained history, performing a medically appropriate examination, counseling and educating the patient/family/caregiver, ordering medications, tests, or procedures, and independently interpreting results (not separately reported). documented in this encounter [facility] 02-22-2022 Nurse Note Patient states [...] Janet Dotson MA documented in this encounter [facility] 02-18-2022 History of Present illness [...] Fara Monaco MD documented in this encounter [facility] 02-15-2022 History of Present illness Narrative Radiology [...] Travis RN PATIENT NAME: Trinity Perry DATE: February 15, 2022 TIME: 10:55 [...] 2022 11:34 AM documented in this encounter [facility] 02-10-[address] Pancreas [...] to come before the winter. Please call [phone]. documented in this encounter [facility] 10-22-2021 Nurse Note Patient requesting [...] REFERRAL (RECOMMENDATION): None documented in this encounter [facility] 08-10-[address] 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 Is there any issue with pt having xray? Ph. [phone] Please Advise Sahra Olmstead (Alexi) Resistance Welder II DDSI documented in this encounter [facility] 03-23-2020 Note [id number] [facility] 03-09-2020 History of Past i llness Narrative Problem Noted Date Resolved Date Sepsis 03/09/2020 03/13/2020 Obesity, Class II, BMI 35-39.9 12/06/2019 1 07/09/2019 documented as of this encounter (statuses as of 08/10/2021) [facility] History of Past illness Narrative* Problem Noted Date Resolved Date Sepsis 03/09/2020 03/13/2020 Obesity, Class II, BMI 35-39.9 12/06/2019 1 07/09/2019 documented as of this encounter (statuses as of 10/23/2021) [facility] History of Past illness Narrative* Problem Noted Date Resolved Date Sepsis 03/09/2020 03/13/2020 Obesity, Class II, BMI 35-39.9 12/06/2019 1 07/09/2019 documented as of this encounter (statuses as of 02/08/2022) [facility] History of Past illness Narrative* Problem Noted Date Resolved Date Sepsis 03/09/2020 03/13/2020 Obesity, Class II, BMI 35-39.9 12/06/2019 1 07/09/2019 documented as of this encounter (statuses as of 02/10/2022) [facility] History of Past illness Narrative* Problem Noted Date Resolved Date Sepsis 03/09/2020 03/13/2020 Obesity, Class II, BMI 35-39.9 12/06/2019 1 07/09/2019 documented as of this encounter (statuses as of 02/18/2022) [facility] History of Past illness Narrative* Problem Noted Date Resolved Date Sepsis 03/09/2020 03/13/2020 Obesity, Class II, BMI 35-39.9 12/06/2019 1 07/09/2019 documented as of this encounter (statuses as of 02/22/2022) [facility] History of Past illness Narrative* Problem Noted Date Resolved Date Sepsis 03/09/2020 03/13/2020 Obesity, Class II, BMI 35-39.9 12/06/2019 1 07/09/2019 documented as of this encounter (statuses as of 02/23/2022) [facility] History of Past illness Narrative* Problem Noted Date Resolved Date Sepsis 03/09/2020 03/13/2020 Obesity, Class II, BMI 35-39.9 12/06/2019 1 07/09/2019 documented as of this encounter (statuses as of 02/25/2022) [facility] History of Past illness Narrative* Problem Noted Date Resolved Date Sepsis 03/09/2020 03/13/2020 Obesity, Class II, BMI 35-39.9 12/06/2019 1 07/09/2019 documented as of this encounter (statuses as of 02/28/2022) [facility] History of Past illness Narrative* Problem Noted Date Resolved Date Sepsis 03/09/2020 03/13/2020 Obesity, Class II, BMI 35-39.9 12/06/2019 1 07/09/2019 documented as of this encounter (statuses as of 03/07/2022) [facility] History of Past illness Narrative* Problem Noted Date Resolved Date Sepsis 03/09/2020 03/13/2020 Obesity, Class II, BMI 35-39.9 12/06/2019 1 07/09/2019 documented as of this encounter (statuses as of 03/07/2022) [facility] History of Past illness Narrative* Problem Noted Date Resolved Date Sepsis 03/09/2020 03/13/2020 Obesity, Class II, BMI 35-39.9 12/06/2019 1 07/09/2019 documented as of this encounter (statuses as of 03/09/2022) [facility] History of Past illness Narrative* Problem Noted Date Resolved Date Sepsis 03/09/2020 03/13/2020 Obesity, Class II, BMI 35-39.9 12/06/2019 1 07/09/2019 documented as of this encounter (statuses as of 03/09/2022) [facility] History of Past illness Narrative* Problem Noted Date Resolved Date Sepsis 03/09/2020 03/13/2020 Obesity, Class II, BMI 35-39.9 12/06/2019 1 07/09/2019 documented as of this encounter (statuses as of 03/09/2022) [facility] History of Past illness Narrative* Problem Noted Date Resolved Date Sepsis 03/09/2020 03/13/2020 Obesity, Class II, BMI 35-39.9 12/06/2019 1 07/09/2019 documented as of this encounter (statuses as of 03/10/2022) [facility] History of Past illness Narrative* Problem Noted Date Resolved Date Sepsis 03/09/2020 03/13/2020 Obesity, Class II, BMI 35-39.9 12/06/2019 1 07/09/2019 documented as of this encounter (statuses as of 03/11/2022) [address]19-2020 History of Past illness Narrative* Problem Noted Date Resolved Date Sepsis 03/09/2020 03/13/2020 Obesity, Class II, BMI 35-39.9 12/06/2019 1 07/09/2019 documented as of this encounter (statuses as of 03/14/2022) [facility] History of Past illness Narrative* Problem Noted Date Resolved Date Sepsis 03/09/2020 03/13/2020 Obesity, Class II, BMI 35-39.9 12/06/2019 1 07/09/2019 documented as of this encounter (statuses as of 03/16/2022) [facility] History of Past illness Narrative* Problem Noted Date Resolved Date Sepsis 03/09/2020 03/13/2020 Obesity, Class II, BMI 35-39.9 12/06/2019 1 07/09/2019 documented as of this encounter (statuses as of 03/16/2022) [facility] History of Past illness Narrative* Problem Noted Date Resolved Date Sepsis 03/09/2020 03/13/2020 Obesity, Class II, BMI 35-39.9 12/06/2019 1 07/09/2019 documented as of this encounter (statuses as of 03/16/2022) [facility] History of Past illness Narrative* Problem Noted Date Resolved Date Sepsis 03/09/2020 03/13/2020 Obesity, Class II, BMI 35-39.9 12/06/2019 1 07/09/2019 documented as of this encounter (statuses as of 03/16/2022) [facility] History of Past illness Narrative* Problem Noted Date Resolved Date Sepsis 03/09/2020 03/13/2020 Obesity, Class II, BMI 35-39.9 12/06/2019 1 07/09/2019 documented as of this encounter (statuses as of 03/17/2022) [facility] History of Past illness Narrative* Problem Noted Date Resolved Date Sepsis 03/09/2020 03/13/2020 Obesity, Class II, BMI 35-39.9 12/06/2019 1 07/09/2019 documented as of this encounter (statuses as of 03/28/2022) [facility] History of Past illness Narrative* Problem Noted Date Resolved Date Sepsis 03/09/2020 03/13/2020 Obesity, Class II, BMI 35-39.9 12/06/2019 1 07/09/2019 documented as of this encounter (statuses as of 03/30/2022) [facility] History of Past illness Narrative* Problem Noted Date Resolved Date Sepsis 03/09/2020 03/13/2020 Obesity, Class II, BMI 35-39.9 12/06/2019 1 07/09/2019 documented as of this encounter (statuses as of 03/30/2022) [facility] History of Past illness Narrative* Problem Noted Date Resolved Date Sepsis 03/09/2020 03/13/2020 Obesity, Class II, BMI 35-39.9 12/06/2019 1 07/09/2019 documented as of this encounter (statuses as of 03/30/2022) [facility] History of Past illness Narrative* Problem Noted Date Resolved Date Sepsis 03/09/2020 03/13/2020 Obesity, Class II, BMI 35-39.9 12/06/2019 1 07/09/2019 documented as of this encounter (statuses as of 04/05/2022) [facility] History of Past illness Narrative* Problem Noted Date Resolved Date Sepsis 03/09/2020 03/13/2020 Obesity, Class II, BMI 35-39.9 12/06/2019 1 07/09/2019 documented as of this encounter (statuses as of 04/06/2022) [facility] History of Past illness Narrative* Problem Noted Date Resolved Date Sepsis 03/09/2020 03/13/2020 Obesity, Class II, BMI 35-39.9 12/06/2019 1 07/09/2019 documented as of this encounter (statuses as of 04/06/2022) [facility] History of Past illness Narrative* Problem Noted Date Resolved Date Sepsis 03/09/2020 03/13/2020 Obesity, Class II, BMI 35-39.9 12/06/2019 1 07/09/2019 documented as of this encounter (statuses as of 04/06/2022) [facility] History of Past illness Narrative* Problem Noted Date Resolved Date Sepsis 03/09/2020 03/13/2020 Obesity, Class II, BMI 35-39.9 12/06/2019 1 07/09/2019 documented as of this encounter (statuses as of 04/20/2022) [facility] History of Past illness Narrative* Problem Noted Date Resolved Date Sepsis 03/09/2020 03/13/2020 Obesity, Class II, BMI 35-39.9 12/06/2019 1 07/09/2019 documented as of this encounter (statuses as of 04/20/2022) [facility] History of Past illness Narrative* Problem Noted Date Resolved Date Sepsis 03/09/2020 03/13/2020 Obesity, Class II, BMI 35-39.9 12/06/2019 1 07/09/2019 documented as of this encounter (statuses as of 04/26/2022) [facility] History of Past illness Narrative* Problem Noted Date Resolved Date Sepsis 03/09/2020 03/13/2020 Obesity, Class II, BMI 35-39.9 12/06/2019 1 07/09/2019 documented as of this encounter (statuses as of 04/27/2022) [facility] History of Past illness Narrative* Problem Noted Date Resolved Date Sepsis 03/09/2020 03/13/2020 Obesity, Class II, BMI 35-39.9 12/06/2019 1 07/09/2019 documented as of this encounter (statuses as of 04/29/2022) [facility] History of Past illness Narrative* Problem Noted Date Resolved Date Sepsis 03/09/2020 03/13/2020 Obesity, Class II, BMI 35-39.9 12/06/2019 1 07/09/2019 documented as of this encounter (statuses as of 05/11/2022) [facility] History of Past illness Narrative* Problem Noted Date Resolved Date Sepsis 03/09/2020 03/13/2020 Obesity, Class II, BMI 35-39.9 12/06/2019 1 07/09/2019 documented as of this encounter (statuses as of 05/11/2022) [facility] History of Past illness Narrative* Problem Noted Date Resolved Date Sepsis 03/09/2020 03/13/2020 Obesity, Class II, BMI 35-39.9 12/06/2019 1 07/09/2019 documented as of this encounter (statuses as of 05/11/2022) [facility] History of Past illness Narrative* Problem Noted Date Resolved Date Sepsis 03/09/2020 03/13/2020 Obesity, Class II, BMI 35-39.9 12/06/2019 1 07/09/2019 documented as of this encounter (statuses as of 05/13/2022) [facility] History of Past illness Narrative* Problem Noted Date Resolved Date Sepsis 03/09/2020 03/13/2020 Obesity, Class II, BMI 35-39.9 12/06/2019 1 07/09/2019 documented as of this encounter (statuses as of 06/01/2022) [facility] History of Past illness Narrative* Problem Noted Date Resolved Date Sepsis 03/09/2020 03/13/2020 Obesity, Class II, BMI 35-39.9 12/06/2019 1 07/09/2019 documented as of this encounter (statuses as of 06/29/2022) [facility] History of Past illness Narrative* Problem Noted Date Resolved Date Sepsis 03/09/2020 03/13/2020 Obesity, Class II, BMI 35-39.9 12/06/2019 1 07/09/2019 documented as of this encounter (statuses as of 06/29/2022) [address]19-2020 History of Past illness Narrative* Problem Noted Date Resolved Date Sepsis 03/09/2020 03/13/2020 Obesity, Class II, BMI 35-39.9 12/06/2019 1 07/09/2019 documented as of this encounter (statuses as of 08/02/2022) [facility] History of Past illness Narrative* Problem Noted Date Resolved Date Sepsis 03/09/2020 03/13/2020 Obesity, Class II, BMI 35-39.9 12/06/2019 1 07/09/2019 documented as of this encounter (statuses as of 08/02/2022) [facility] History of Past illness Narrative* Problem Noted Date Resolved Date Sepsis 03/09/2020 03/13/2020 Obesity, Class II, BMI 35-39.9 12/06/2019 1 07/09/2019 documented as of this encounter (statuses as of 08/04/2022) [address]19-2020 History of Past illness Narrative* Problem Noted Date Resolved Date Sepsis 03/09/2020 03/13/2020 Obesity, Class II, BMI 35-39.9 12/06/2019 1 07/09/2019 documented as of this encounter (statuses as of 09/29/2022) [facility] History of Past illness Narrative* Problem Noted Date Resolved Date Sepsis 03/09/2020 03/13/2020 Obesity, Class II, BMI 35-39.9 12/06/2019 1 07/09/2019 documented as of this encounter (statuses as of 09/29/2022) [address]19-2020 History of Past illness Narrative* Problem Noted Date Resolved Date Sepsis 03/09/2020 03/13/2020 Obesity, Class II, BMI 35-39.9 12/06/2019 1 07/09/2019 documented as of this encounter (statuses as of 11/03/2022) [address]19-2020 History of Past illness Narrative* Problem Noted Date Resolved Date Sepsis 03/09/2020 03/13/2020 Obesity, Class II, BMI 35-39.9 12/06/2019 1 07/09/2019 documented as of this encounter (statuses as of 11/07/2022) [facility]-2020 History of Past illness Narrative* Problem Noted Date Resolved Date Sepsis 03/09/2020 03/13/2020 Obesity, Class II, BMI 35-39.9 12/06/2019 1 07/09/2019 documented as of this encounter (statuses as of 11/10/2022) [facility]2020 History of Past illness Narrative* Problem Noted Date Resolved Date Sepsis 03/09/2020 03/13/2020 Obesity, Class II, BMI 35-39.9 12/06/2019 1 07/09/2019 documented as of this encounter (statuses as of 11/10/2022) [facility]2020 History of Past illness Narrative* Problem Noted Date Resolved Date Sepsis 03/09/2020 03/13/2020 Obesity, Class II, BMI 35-39.9 12/06/2019 1 07/09/2019 documented as of this encounter (statuses as of 11/24/2022) [facility]2020 History of Past illness Narrative* Problem Noted Date Resolved Date Sepsis 03/09/2020 03/13/2020 Obesity, Class II, BMI 35-39.9 12/06/2019 1 07/09/2019 documented as of this encounter (statuses as of 11/24/2022) [facility]2020 History of Past illness Narrative* Problem Noted Date Resolved Date Sepsis 03/09/2020 03/13/2020 Obesity, Class II, BMI 35-39.9 12/06/2019 1 07/09/2019 documented as of this encounter (statuses as of 11/24/2022) [facility]2020 History of Past illness Narrative* Problem Noted Date Diagnosed Date Resolved Date Sepsis 03/09/2020 03/13/2020 Obesity, Class II, BMI 35-39.9 12/06/2019 05/08/2020 documented as of this encounter (statuses as of 11/28/2022) [facility]2020 History of Past illness Narrative* Problem Noted Date Diagnosed Date Resolved Date Sepsis 03/09/2020 03/13/2020 Obesity, Class II, BMI 35-39.9 12/06/2019 05/08/2020 documented as of this encounter (statuses as of 11/30/2022) [facility] History of Past illness Narrative* Problem Noted Date Diagnosed Date Resolved Date Sepsis 03/09/2020 03/13/2020 Obesity, Class II, BMI 35-39.9 12/06/2019 05/08/2020 documented as of this encounter (statuses as of 11/30/2022) [facility] History of Past illness Narrative* Problem Noted Date Diagnosed Date Resolved Date Sepsis 03/09/2020 03/13/2020 Obesity, Class II, BMI 35-39.9 12/06/2019 05/08/2020 documented as of this encounter (statuses as of 12/05/2022) [facility] History of Past illness Narrative* Problem Noted Date Diagnosed Date Resolved Date Sepsis 03/09/2020 03/13/2020 Obesity, Class II, BMI 35-39.9 12/06/2019 05/08/2020 documented as of this encounter (statuses as of 12/05/2022) [facility] History of Past illness Narrative* Problem Noted Date Diagnosed Date Resolved Date Sepsis 03/09/2020 03/13/2020 Obesity, Class II, BMI 35-39.9 12/06/2019 05/08/2020 documented as of this encounter (statuses as of 12/06/2022) [facility]2020 History of Past illness Narrative* Problem Noted Date Diagnosed Date Resolved Date Sepsis 03/09/2020 03/13/2020 Obesity, Class II, BMI 35-39.9 12/06/2019 05/08/2020 documented as of this encounter (statuses as of 12/06/2022) [facility] History of Past illness Narrative* Problem Noted Date Diagnosed Date Resolved Date Sepsis 03/09/2020 03/13/2020 Obesity, Class II, BMI 35-39.9 12/06/2019 05/08/2020 documented as of this encounter (statuses as of 12/14/2022) [facility] History of Past illness Narrative* Problem Noted Date Diagnosed Date Resolved Date Sepsis 03/09/2020 03/13/2020 Obesity, Class II, BMI 35-39.9 12/06/2019 05/08/2020 documented as of this encounter (statuses as of 12/14/2022) [facility]2020 History of Past illness Narrative* Problem Noted Date Diagnosed Date Resolved Date Sepsis 03/09/2020 03/13/2020 Obesity, Class II, BMI 35-39.9 12/06/2019 05/08/2020 documented as of this encounter (statuses as of 12/21/2022) [facility]2020 History of Past illness Narrative* Problem Noted Date Diagnosed Date Resolved Date Sepsis 03/09/2020 03/13/2020 Obesity, Class II, BMI 35-39.9 12/06/2019 05/08/2020 documented as of this encounter (statuses as of 12/21/2022) [facility] History of Past illness Narrative* Problem Noted Date Diagnosed Date Resolved Date Sepsis 03/09/2020 03/13/2020 Obesity, Class II, BMI 35-39.9 12/06/2019 05/08/2020 documented as of this encounter (statuses as of 12/21/2022) [facility] History of Past illness Narrative* Problem Noted Date Diagnosed Date Resolved Date Sepsis 03/09/2020 03/13/2020 Obesity, Class II, BMI 35-39.9 12/06/2019 05/08/2020 documented as of this encounter (statuses as of 12/22/2022) [facility]2020 History of Past illness Narrative* Problem Noted Date Diagnosed Date Resolved Date Sepsis 03/09/2020 03/13/2020 Obesity, Class II, BMI 35-39.9 12/06/2019 05/08/2020 documented as of this encounter (statuses as of 01/05/2023) [facility]2020 History of Past illness Narrative* Problem Noted Date Diagnosed Date Resolved Date Sepsis 03/09/2020 03/13/2020 Obesity, Class II, BMI 35-39.9 12/06/2019 05/08/2020 documented as of this encounter (statuses as of 02/01/2023) [facility]2020 History of Past illness Narrative* Problem Noted Date Diagnosed Date Resolved Date Sepsis 03/09/2020 03/13/2020 Obesity, Class II, BMI 35-39.9 12/06/2019 05/08/2020 documented as of this encounter (statuses as of 02/01/2023) [address]19-2020 History of Past illness Narrative* Problem Noted Date Diagnosed Date Resolved Date Sepsis 03/09/2020 03/13/2020 Obesity, Class II, BMI 35-39.9 12/06/2019 05/08/2020 documented as of this encounter (statuses as of 02/09/2023) [facility]2020 History of Past illness Narrative* Problem Noted Date Diagnosed Date Resolved Date Sepsis 03/09/2020 03/13/2020 Obesity, Class II, BMI 35-39.9 12/06/2019 05/08/2020 documented as of this encounter (statuses as of 02/10/2023) [facility]2020 History of Past illness Narrative* Problem Noted Date Diagnosed Date Resolved Date Sepsis 03/09/2020 03/13/2020 Obesity, Class II, BMI 35-39.9 12/06/2019 05/08/2020 documented as of this encounter (statuses as of 02/11/2023) [facility]2020 History of Past illness Narrative* Problem Noted Date Diagnosed Date Resolved Date Sepsis 03/09/2020 03/13/2020 Obesity, Class II, BMI 35-39.9 12/06/2019 05/08/2020 documented as of this encounter (statuses as of 03/01/2023) [facility] History of Past illness Narrative* Problem Noted Date Diagnosed Date Resolved Date Sepsis 03/09/2020 03/13/2020 Obesity, Class II, BMI 35-39.9 12/06/2019 05/08/2020 documented as of this encounter (statuses as of 03/03/2023) [facility] History of Past illness Narrative* Problem Noted Date Diagnosed Date Resolved Date Sepsis 03/09/2020 03/13/2020 Obesity, Class II, BMI 35-39.9 12/06/2019 05/08/2020 documented as of this encounter (statuses as of 03/08/2023) [facility] History of Past illness Narrative* Problem Noted Date Diagnosed Date Resolved Date Sepsis 03/09/2020 03/13/2020 Obesity, Class II, BMI 35-39.9 12/06/2019 05/08/2020 documented as of this encounter (statuses as of 03/08/2023) [facility] History of Past illness Narrative* Problem Noted Date Diagnosed Date Resolved Date Sepsis 03/09/2020 03/13/2020 Obesity, Class II, BMI 35-39.9 12/06/2019 05/08/2020 documented as of this encounter (statuses as of 03/09/2023) [facility] History of Past illness Narrative* Problem Noted Date Diagnosed Date Resolved Date Sepsis 03/09/2020 03/13/2020 Obesity, Class II, BMI 35-39.9 12/06/2019 05/08/2020 documented as of this encounter (statuses as of 03/31/2023) [facility] History of Past illness Narrative* Problem Noted Date Diagnosed Date Resolved Date Sepsis 03/09/2020 03/13/2020 Obesity, Class II, BMI 35-39.9 12/06/2019 05/08/2020 documented as of this encounter (statuses as of 04/05/2023) [facility] History of Past illness Narrative* Problem Noted Date Diagnosed Date Resolved Date Sepsis 03/09/2020 03/13/2020 Obesity, Class II, BMI 35-39.9 12/06/2019 05/08/2020 documented as of this encounter (statuses as of 04/05/2023) [facility]2020 History of Past illness Narrative* Problem Noted Date Diagnosed Date Resolved Date Sepsis 03/09/2020 03/13/2020 Obesity, Class II, BMI 35-39.9 12/06/2019 05/08/2020 documented as of this encounter (statuses as of 04/05/2023) [facility]2020 History of Past illness Narrative* Problem Noted Date Diagnosed Date Resolved Date Sepsis 03/09/2020 03/13/2020 Obesity, Class II, BMI 35-39.9 12/06/2019 05/08/2020 documented as of this encounter (statuses as of 04/06/2023) [facility]2020 History of Past illness Narrative* Problem Noted Date Diagnosed Date Resolved Date Sepsis 03/09/2020 03/13/2020 Obesity, Class II, BMI 35-39.9 12/06/2019 05/08/2020 documented as of this encounter (statuses as of 04/07/2023) [facility]2020 History of Past illness Narrative* Problem Noted Date Diagnosed Date Resolved Date Sepsis 03/09/2020 03/13/2020 Obesity, Class II, BMI 35-39.9 12/06/2019 05/08/2020 documented as of this encounter (statuses as of 05/05/2023) [address]19-2020 History of Past illness Narrative* Problem Noted Date Diagnosed Date Resolved Date Sepsis 03/09/2020 03/13/2020 Obesity, Class II, BMI 35-39.9 12/06/2019 05/08/2020 documented as of this encounter (statuses as of 05/06/2023) [address]19-2020 History of Past illness Narrative* Problem Noted Date Diagnosed Date Resolved Date Sepsis 03/09/2020 03/13/2020 Obesity, Class II, BMI 35-39.9 12/06/2019 05/08/2020 documented as of this encounter (statuses as of 05/06/2023) [address]19-2020 History of Past illness Narrative* Problem Noted Date Diagnosed Date Resolved Date Sepsis 03/09/2020 03/13/2020 Obesity, Class II, BMI 35-39.9 12/06/2019 05/08/2020 documented as of this encounter (statuses as of 06/23/2023) [address]19-2020 History of Past illness Narrative* Problem Noted Date Diagnosed Date Resolved Date Sepsis 03/09/2020 03/13/2020 Obesity, Class II, BMI 35-39.9 12/06/2019 05/08/2020 documented as of this encounter (statuses as of 06/23/2023) [address]19-2020 History of Past illness Narrative* Problem Noted Date Diagnosed Date Resolved Date Sepsis 03/09/2020 03/13/2020 Obesity, Class II, BMI 35-39.9 12/06/2019 05/08/2020 documented as of this encounter (statuses as of 07/05/2023) [address]19-2020 History of Past illness Narrative* Problem Noted Date Diagnosed Date Resolved Date Sepsis 03/09/2020 03/13/2020 Obesity, Class II, BMI 35-39.9 12/06/2019 05/08/2020 documented as of this encounter (statuses as of 07/05/2023) [address]19-2020 History of Past illness Narrative* Problem Noted Date Diagnosed Date Resolved Date Sepsis 03/09/2020 03/13/2020 Obesity, Class II, BMI 35-39.9 12/06/2019 05/08/2020 documented as of this encounter (statuses as of 07/07/2023) [facility]2020 History of Past illness Narrative* Problem Noted Date Diagnosed Date Resolved Date Sepsis 03/09/2020 03/13/2020 Obesity, Class II, BMI 35-39.9 12/06/2019 05/08/2020 documented as of this encounter (statuses as of 07/13/2023) [facility]2020 History of Past illness Narrative* Problem Noted Date Diagnosed Date Resolved Date Sepsis 03/09/2020 03/13/2020 Obesity, Class II, BMI 35-39.9 12/06/2019 05/08/2020 documented as of this encounter (statuses as of 07/19/2023) [facility]2020 History of Past illness Narrative* Problem Noted Date Diagnosed Date Resolved Date Sepsis 03/09/2020 03/13/2020 Obesity, Class II, BMI 35-39.9 12/06/2019 05/08/2020 documented as of this encounter (statuses as of 07/20/2023) [address]19-2020 History of Past illness Narrative* Problem Noted Date Diagnosed Date Resolved Date Sepsis 03/09/2020 03/13/2020 Obesity, Class II, BMI 35-39.9 12/06/2019 05/08/2020 documented as of this encounter (statuses as of 07/20/2023) [facility]2020 History of Past illness Narrative* Problem Noted Date Diagnosed Date Resolved Date Sepsis 03/09/2020 03/13/2020 Obesity, Class II, BMI 35-39.9 12/06/2019 05/08/2020 documented as of this encounter (statuses as of 07/21/2023) [facility]2020 History of Past illness Narrative* Problem Noted Date Diagnosed Date Resolved Date Sepsis 03/09/2020 03/13/2020 Obesity, Class II, BMI 35-39.9 12/06/2019 05/08/2020 documented as of this encounter (statuses as of 07/26/2023) [facility] History of Past illness Narrative* Problem Noted Date Diagnosed Date Resolved Date Sepsis 03/09/2020 03/13/2020 Obesity, Class II, BMI 35-39.9 12/06/2019 05/08/2020 documented as of this encounter (statuses as of 08/02/2023) [address]19-2020 History of Past illness Narrative* Problem Noted Date Diagnosed Date Resolved Date Sepsis 03/09/2020 03/13/2020 Obesity, Class II, BMI 35-39.9 12/06/2019 05/08/2020 documented as of this encounter (statuses as of 08/02/2023) [facility] History of Past illness Narrative* Problem Noted Date Diagnosed Date Resolved Date Sepsis 03/09/2020 03/13/2020 Obesity, Class II, BMI 35-39.9 12/06/2019 05/08/2020 documented as of this encounter (statuses as of 08/02/2023) [facility] History of Past illness Narrative* Problem Noted Date Diagnosed Date Resolved Date Sepsis 03/09/2020 03/13/2020 Obesity, Class II, BMI 35-39.9 12/06/2019 05/08/2020 documented as of this encounter (statuses as of 08/04/2023) [facility] History of Past illness Narrative* Problem Noted Date Diagnosed Date Resolved Date Sepsis 03/09/2020 03/13/2020 Obesity, Class II, BMI 35-39.9 12/06/2019 05/08/2020 documented as of this encounter (statuses as of 08/09/2023) [facility] History of Past illness Narrative* Problem Noted Date Diagnosed Date Resolved Date Sepsis 03/09/2020 03/13/2020 Obesity, Class II, BMI 35-39.9 12/06/2019 05/08/2020 documented as of this encounter (statuses as of 08/11/2023) [facility] History of Past illness Narrative* Problem Noted Date Diagnosed Date Resolved Date Sepsis 03/09/2020 03/13/2020 Obesity, Class II, BMI 35-39.9 12/06/2019 05/08/2020 documented as of this encounter (statuses as of 08/23/2023) [facility] History of Past illness Narrative* Problem Noted Date Diagnosed Date Resolved Date Sepsis 03/09/2020 03/13/2020 Obesity, Class II, BMI 35-39.9 12/06/2019 05/08/2020 documented as of this encounter (statuses as of 08/24/2023) [address]19-2020 History of Past illness Narrative* Problem Noted Date Diagnosed Date Resolved Date Sepsis 03/09/2020 03/13/2020 Obesity, Class II, BMI 35-39.9 12/06/2019 05/08/2020 documented as of this encounter (statuses as of 08/25/2023) [facility] Aden[facility] of head of pancreas [...] [facility]* Diagnosis Malignant [...] of tobacco use, 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 to health supervisor intermediates current use of anticoagulant Long-term (current) use [...] head of pancreas documented in this encounter [facility] note* Diagnosis Pre-op evaluation- Primary Preoperative examination, unspecified Infection in abdomen (HCC) Unspecified peritonitis Obstructive sleep apnea Obstructive sleep apnea (adult) (pediatric) Former smoker Personal history of tobacco use, 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 to health supervisor intermediates current use of anticoagulant Long-term (current) use [...] head of pancreas documented in this encounter [facility] note* Diagnosis Pre-op evaluation- Primary Preoperative examination, unspecified Infection in abdomen (HCC) Unspecified peritonitis Obstructive sleep apnea Obstructive sleep apnea (adult) (pediatric) Former smoker Personal history of tobacco use, 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 to health detention current use of anticoagulant Long-term (current) use [...] head of pancreas documented in this encounter [facility] note* Diagnosis Pre-op evaluation- Primary Preoperative examination, unspecified Infection in abdomen (HCC) Unspecified peritonitis Obstructive sleep apnea Obstructive sleep apnea (adult) (pediatric) Former smoker Personal history of tobacco use, 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 to health detention current use of anticoagulant Long-term (current) use [...] head of pancreas documented in this encounter [facility] note* Diagnosis Pre-op evaluation- Primary Preoperative examination, unspecified Infection in abdomen (HCC) Unspecified peritonitis Obstructive sleep apnea Obstructive sleep apnea (adult) (pediatric) Former smoker Personal history of tobacco use, 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 to health supervisor intermediates current use of anticoagulant Long-term (current) use [...] head of pancreas documented in this encounter [facility] note* Diagnosis Pre-op evaluation- Primary Preoperative examination, unspecified Infection in abdomen (HCC) Unspecified peritonitis Obstructive sleep apnea Obstructive sleep apnea (adult) (pediatric) Former smoker Personal history of tobacco use, 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 to health detention current use of anticoagulant Long-term (current) use [...] head of pancreas documented in this encounter [facility] note* Diagnosis Pre-op evaluation- Primary Preoperative examination, unspecified Infection in abdomen (HCC) Unspecified peritonitis Obstructive sleep apnea Obstructive sleep apnea (adult) (pediatric) Former smoker Personal history of tobacco use, 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 to health detention current use of anticoagulant Long-term (current) use [...] (HCC) Acute cough documented in this encounter [facility] note* Diagnosis Pre-op evaluation- Primary Preoperative examination, unspecified Infection in abdomen (HCC) Unspecified peritonitis Obstructive sleep apnea Obstructive sleep apnea (adult) (pediatric) Former smoker Personal history of tobacco use, 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 to health detention current use of anticoagulant Long-term (current) use [...] head of pancreas documented in this encounter [facility] note* Diagnosis Pre-op evaluation- Primary Preoperative examination, unspecified Infection in abdomen (HCC) Unspecified peritonitis Obstructive sleep apnea Obstructive sleep apnea (adult) (pediatric) Former smoker Personal history of tobacco use, 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 to health supervisor intermediates current use of anticoagulant Long-term (current) use [...] of malignancy (HCC) documented in this encounter [facility] note* Diagnosis Pre-op evaluation- Primary Preoperative examination, unspecified Infection in abdomen (HCC) Unspecified peritonitis Obstructive sleep apnea Obstructive sleep apnea (adult) (pediatric) Former smoker Personal history of tobacco use, 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 to health supervisor intermediates current use of anticoagulant Long-term (current) use [...] head of pancreas documented in this encounter [facility] note* Diagnosis Pre-op evaluation- Primary Preoperative examination, unspecified Infection in abdomen (HCC) Unspecified peritonitis Obstructive sleep apnea Obstructive sleep apnea (adult) (pediatric) Former smoker Personal history of tobacco use, 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 to health supervisor intermediates current use of anticoagulant Long-term (current) use [...] head of pancreas documented in this encounter [facility] note* Diagnosis Pre-op evaluation- Primary Preoperative examination, unspecified Infection in abdomen (HCC) Unspecified peritonitis Obstructive sleep apnea Obstructive sleep apnea (adult) (pediatric) Former smoker Personal history of tobacco use, 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 to health detention current use of anticoagulant Long-term (current) use [...] 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 to health Insulin long-term use ([facility]) Encounter for long-term (current) use of insulin Anemia, unspecified type Gastric outlet obstruction 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 Acute deep vein thrombosis (DVT) of both upper extremities, unspecified vein (HCC) 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 Malignant neoplasm of head of pancreas documented in this encounter [facility] note* Diagnosis Pre-op evaluation- Primary Preoperative examination, unspecified Infection in abdomen (HCC) Unspecified peritonitis Obstructive sleep apnea Obstructive sleep apnea (adult) (pediatric) Former smoker Personal history of tobacco use, 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 to health detention current use of anticoagulant Long-term (current) use [...] head of pancreas documented in this encounter [facility] note* Diagnosis Pre-op evaluation- Primary Preoperative examination, unspecified Infection in abdomen (HCC) Unspecified peritonitis Obstructive sleep apnea Obstructive sleep apnea (adult) (pediatric) Former smoker Personal history of tobacco use, 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 to health detention current use of anticoagulant Long-term (current) use [...] head of pancreas documented in this encounter [facility] note* Diagnosis Pre-op evaluation- Primary Preoperative examination, unspecified Infection in abdomen (HCC) Unspecified peritonitis Obstructive sleep apnea Obstructive sleep apnea (adult) (pediatric) Former smoker Personal history of tobacco use, 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 to health supervisor intermediates current use of anticoagulant Long-term (current) use [...] head of pancreas [facility] Diagnosis Pre-op evaluation- Primary Preoperative examination, unspecified Infection in abdomen (HCC) Unspecified peritonitis Obstructive sleep apnea Obstructive sleep apnea (adult) (pediatric) Former smoker Personal history of tobacco use, 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 to health supervisor intermediates current use of anticoagulant Long-term (current) use [...] 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 to health Insulin long-term use ([facility]) Encounter for long-term (current) use of insulin Anemia, unspecified type Gastric outlet obstruction 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 Acute deep vein thrombosis (DVT) of both upper extremities, unspecified vein (HCC) 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) Malignant neoplasm of head of pancreas documented in this encounter [facility] note* Diagnosis Pre-op evaluation- Primary Preoperative examination, unspecified Infection in abdomen (HCC) Unspecified peritonitis Obstructive sleep apnea Obstructive sleep apnea (adult) (pediatric) Former smoker Personal history of tobacco use, 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 to health supervisor intermediates current use of anticoagulant Long-term (current) use [...] of pancreas (HCC) [facility]- Primary Preoperative examination, unspecified Infection in abdomen (HCC) Unspecified peritonitis Obstructive sleep apnea Obstructive sleep apnea (adult) (pediatric) Former smoker Personal history of tobacco use, 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 to health supervisor intermediates current use of anticoagulant Long-term (current) use [...] head of pancreas documented in this encounter [facility] for referral (narrative)* Outpatient Procedure (Urgent) - Pending Review Specialty Diagnoses / Procedures Referred By Riaz jordan Referred To [facility] Diagnoses Leg swelling Procedures US LEG VEIN DVT SADIE [facility] LAB DUP-SCAN XTR VEINS COMPLETE BILATERAL STUDY Greta Wetzel PA-C [address] [place] [address] [place] [address] [facility] [address] [place] [address] Referral ID Status Reason Start Date Expiration Date Visits Requested Visits Authorized [id number] Pending Review Auto-Generat ed Referral 10/03/2023 10/02/2024 1 1 [facility] for referral (narrative)* Diagnostic Procedure Only (Routine) - Pending Review Specialty Diagnoses / Procedures Referred By Riaz jordan Referred To Contact XR IMAGING Diagnoses Malignant neoplasm of head of pancreas (HCC) Central line complication, initial encounter Procedures XR CHEST 1V FRONTAL PORT RADIOLOGIC EXAM CHEST SINGLE VIEW Greta Wetzel PA-C [address] [place] [address] [place] [address] [place] [address] Referral ID Status Reason Start Date Expiration Date Visits Requested Visits Authorized [id number] Pending Review Auto-Generat ed Referral 11/22/2023 12/21/2024 1 1 [facility] Summary Purpose Family History No Family History Records Found Relationship Condition Age at Onset Recorded Date/T abdoul Not Specified No pertinent family history Unknown Advance Directives No Advanced Directives Records FoundDocuments on File Type Date Recorded 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 Advance Directive(s) 2021 7:23 AM [...] COMPUTED TOMOGRAPHY THORAX W/CONTRAST Grace Bess MD [address] [place] [address] Referral ID Status Reason Start Date Expiration Date Visits Requested Visits Authorized [id number] Authorized Auto-Generat ed Referral 2 03/24/2023 1 1 Specialty Diagnoses / Procedures Referred By Riaz jordan Referred To Contact Diagnoses Malignant neoplasm of head of pancreas (HCC) Procedures CONSULT TO MEDICAL GENETICS - CANCER MEDICAL GENETICS COUNSELING EACH 30 MINUTES Grace Bess MD [address] [place] [address] [place] [address] Referral ID Status Reason Start Date Expiration Date Visits Requested Visits Authorized [id number] Pending Review PCP Requested Referral Auto-Generate d Referral 2 02/22/2023 1 1 Specialty Diagnoses / Procedures Referred By Riaz jordan Referred To Contact CT IMAGING Diagnoses Malignant neoplasm of head of pancreas (HCC) Procedures CT ABD/PEL W IVCON CT ABD & PELVIS W/CONTRAST Grace Bess MD [address] [place] [address] [facility] Referral ID Status Reason Start Date Expiration Date Visits Requested Visits Authorized [id number] Authorized Auto-Generat ed Referral 06/01/2022 06/10/2023 1 1 Referral ID Status Reason Start Date Expiration Date Visits Requested Visits Authorized [id number] Authorized Auto-Generat ed Referral 06/01/2022 06/10/2023 1 1 Referral ID Status Reason Start Date Expiration Date Visits Requested Visits Authorized [id number] Pending Review Auto-Generat ed Referral 08/03/2022 07/29/2023 1 1 Referral ID Status Reason Start Date Expiration Date Visits Requested Visits Authorized [id number] Pending Review Auto-Generat ed Referral 08/03/2022 07/29/2023 1 1 Referral ID Status Reason Start Date Expiration Date Visits Requested Visits Authorized [id number] Authorized Auto-Generat ed Referral 11/10/2022 10/29/2023 1 1 Referral ID Status Reason Start Date Expiration Date Visits Requested Visits Authorized [id number] Authorized Auto-Generat ed Referral 11/10/2022 10/29/2023 1 1 Specialty Diagnoses / Procedures Referred By Riaz jordan Referred To Contact Endocrinology Diagnoses Malignant neoplasm of head of pancreas (HCC) Type 2 diabetes mellitus without complication, with long-term current use of insulin (HCC) Procedures CONSULT TO ENDOCRINOLOGY OFFICE/OUTPATIENT [facility] MDM 60-74 MINUTES Greta Wetzel PA-C [facility] [place] [address] Referral ID Status Reason Start Date Expiration Date Visits Requested Visits Authorized [id number] Authorized PCP Requested Referral 11/23/2022 11/23/2023 1 [...] COMPUTED TOMOGRAPHY THORAX W/CONTRAST Greta Wetzel PA-C [facility] [place] [address] Ct Imaging Referral ID Status Reason Start Date Expiration Date Visits Requested Visits Authorized [id number] Pending Review Auto-Generat ed Referral 12/21/2022 01/20/2024 1 1 Specialty Diagnoses / Procedures Referred By Contac t Referred To Contact CT IMAGING Diagnoses Malignant neoplasm of head of pancreas (HCC) Procedures CT ABD/PEL W IVCON CT ABD & PELVIS W/CONTRAST Grace Bess MD [address] [place] [address] [address] [place] [address] Referral ID Status Reason Start Date Expiration Date Visits Requested Visits Authorized [id number] Authorized Auto-Generat ed Referral 05/26/2023 06/03/2024 1 1 Specialty Diagnoses / Procedures Referred By Contac t Referred To Contact CT IMAGING Diagnoses Malignant neoplasm of head of pancreas (HCC) Procedures CT CHEST W IVCON DIAGNOSTIC COMPUTED TOMOGRAPHY THORAX W/CONTRAST Grace Bess MD [address] [place] [address] [address] [place] [address] Referral ID Status Reason Start Date Expiration Date Visits Requested Visits Authorized [id number] Authorized Auto-Generat ed Referral 05/26/2023 06/03/2024 1 1 Referral ID Status Reason Start Date Expiration Date Visits Requested Visits Authorized [id number] Authorized Auto-Generat ed Referral 08/16/2023 08/31/2024 1 1 Referral ID Status Reason Start Date Expiration Date Visits Requested Visits Authorized [id number] Authorized Auto-Generat ed Referral 08/16/2023 08/31/2024 1 1 Referral ID Status Reason Start Date Expiration Date Visits Requested Visits Authorized [id number] Authorized Auto-Generat ed Referral 11/21/2023 11/29/2024 1 1 Referral ID Status Reason Start Date Expiration Date Visits Requested Visits Authorized [id number] Authorized Auto-Generat ed Referral 11/21/2023 11/29/2024 1 1 Referral ID Status Reason Start Date Expiration Date V isits Requested Visits Authorized [id number] Closed Auto-Generate d Referral 11/21/2023 11/29/2024 1 1 Referral ID Status Reason Start Date Expiration Date V isits Requested Visits Authorized [id number] Closed Auto-Generate d Referral 11/21/2023 11/29/2024 1 1 Referral ID Status Reason Start Date Expiration Date V isits Requested Visits Authorized [id number] Closed Auto-Generate d Referral 08/16/2023 08/31/2024 1 1 Referral ID Status Reason Start Date Expiration Date V isits Requested Visits Authorized [id number] Closed Auto-Generate d Referral 08/16/2023 08/31/2024 1 1 Referral ID Status Reason Start Date Expiration Date V isits Requested Visits Authorized [id number] Closed Auto-Generate d Referral 05/26/2023 06/03/2024 1 1 Referral ID Status Reason Start Date Expiration Date V isits Requested Visits Authorized [id number] Closed Auto-Generate d Referral 05/26/2023 06/03/2024 1 1 Referral ID Status Reason Start Date Expiration Date V isits Requested Visits Authorized [id number] Closed Auto-Generate d Referral 11/10/2022 10/29/2023 1 1 Referral ID Status Reason Start Date Expiration Date V isits Requested Visits Authorized [id number] Closed Auto-Generate d Referral 11/10/2022 10/29/2023 1 1 Referral ID Status Reason Start Date Expiration Date V isits Requested Visits Authorized [id number] Closed Auto-Generate d Referral 07/25/2022 07/29/2023 1 1 Referral ID Status Reason Start Date Expiration Date V isits Requested Visits Authorized [id number] Closed Auto-Generate d Referral 07/25/2022 07/29/2023 1 1 Referral ID Status Reason Start Date Expiration Date V isits Requested Visits Authorized [id number] Closed Auto-Generate d Referral 06/01/2022 06/10/2023 1 1 Referral ID Status Reason Start Date Expiration Date V isits Requested Visits Authorized [id number] Closed Auto-Generate d Referral 06/01/2022 06/10/2023 1 1 Referral ID Status Reason Start Date Expiration Date V isits Requested Visits Authorized [id number] Closed Auto-Generate d Referral 03/01/2022 03/24/2023 1 1 Specialty Diagnoses / Procedures Referred By Contac t Referred To Contact CT IMAGING Diagnoses Other chronic pancreatitis (HCC) Procedures CT PANCREAS W IVCON [place] ABDOMEN W/[place] [address] [address] [address] [place] [address] Referral ID Status Reason Start Date Expiration Date V isits Requested Visits Authorized [id number] Closed Auto-Generate d Referral 07/21/2021 08/14/2022 1 [...] section and content) DATE CREATED AUTHOR 12/12/2019 [facility] DATE CREATED AUTHOR AUTHOR'S ORGANIZ ATION 04/16/2020 [facility] DATE CREATED AUTHOR AUTHOR'S ORGANIZ ATION 02/19/2021 [facility] DATE CREATED AUTHOR AUTHOR'S ORGANIZ ATION 06/24/2021 [facility] DATE CREATED AUTHOR AUTHOR'S ORGANIZ ATION 09/27/2021 [facility] DATE CREATED AUTHOR AUTHOR'S ORGANIZ ATION 04/14/2022 [facility] DATE CREATED AUTHOR AUTHOR'S ORGANIZ ATION 10/28/2023 [facility] DATE CREATED AUTHOR AUTHOR'S ORGANIZ ATION 11/11/2023 [facility] DATE CREATED AUTHOR AUTHOR'S ORGANIZ ATION 01/03/2024 [facility] DATE CREATED AUTHOR AUTHOR'S ORGANIZ ATION 03/19/2024 [facility] Source Comments (unrecognize d section and content) In the event this informatio n is protected by the Federal Confidentiality of Alcohol and Drug Abuse Patient Records regulations: The Federal rules restrict any use of the information to criminally investigate or prosecute any alcohol or drug abuse patient.[facility] the event this information is protected by the Federal Confidentiality of Alcohol and Drug Abuse Patient Records regulations: The Federal rules restrict any use of the information to criminally investigate or prosecute any alcohol or drug abuse patient.[facility] the event this information is protected by the Federal Confidentiality of Alcohol and Drug Abuse Patient Records regulations: The Federal rules restrict any use of the information to criminally investigate or prosecute any alcohol or drug abuse patient.[facility] the event this information is protected by the Federal Confidentiality of Alcohol and Drug Abuse Patient Records regulations: The Federal rules restrict any use of the information to criminally investigate or prosecute any alcohol or drug abuse patient.[facility] the event this information is protected by the Federal Confidentiality of Alcohol and Drug Abuse Patient Records regulations: The Federal rules restrict any use of the information to criminally investigate or prosecute any alcohol or drug abuse patient.[facility] the event this information is protected by the Federal Confidentiality of Alcohol and Drug Abuse Patient Records regulations: The Federal rules restrict any use of the information to criminally investigate or prosecute any alcohol or drug abuse patient.[facility] Center[facility] the event this information is protected by the Federal Confidentiality of Alcohol and Drug Abuse Patient Records regulations: The Federal rules restrict any use of the information to criminally investigate or prosecute any alcohol or drug abuse patient.[facility] Center[facility] the event this information is protected by the Federal Confidentiality of Alcohol and Drug Abuse Patient Records regulations: The Federal rules restrict any use of the information to criminally investigate or prosecute any alcohol or drug abuse patient.[facility] Center[facility] the event this information is protected by the Federal Confidentiality of Alcohol and Drug Abuse Patient Records regulations: The Federal rules restrict any use of the information to criminally investigate or prosecute any alcohol or drug abuse patient.[facility] CenterIn the event this information is protected by the Federal Confidentiality of Alcohol and Drug Abuse Patient Records regulations: The Federal rules restrict any use of the information to criminally investigate or prosecute any alcohol or drug abuse patient.[facility] CenterIn the event this information is protected by the Federal Confidentiality of Alcohol and Drug Abuse Patient Records regulations: The Federal rules restrict any use of the information to criminally investigate or prosecute any alcohol or drug abuse patient.[facility] CenterIn the event this information is protected by the Federal Confidentiality of Alcohol and Drug Abuse Patient Records regulations: The Federal rules restrict any use of the information to criminally investigate or prosecute any alcohol or drug abuse patient.[facility] CenterIn the event this information is protected by the Federal Confidentiality of Alcohol and Drug Abuse Patient Records regulations: The Federal rules restrict any use of the information to criminally investigate or prosecute any alcohol or drug abuse patient.[facility] CenterIn the event this information is protected by the Federal Confidentiality of Alcohol and Drug Abuse Patient Records regulations: The Federal rules restrict any use of the information to criminally investigate or prosecute any alcohol or drug abuse patient.[facility] CenterIn the event this information is protected by the Federal Confidentiality of Alcohol and Drug Abuse Patient Records regulations: The Federal rules restrict any use of the information to criminally investigate or prosecute any alcohol or drug abuse patient.[facility] CenterIn the event this information is protected by the Federal Confidentiality of Alcohol and Drug Abuse Patient Records regulations: The Federal rules restrict any use of the information to criminally investigate or prosecute any alcohol or drug abuse patient.[facility] CenterIn the event this information is protected by the Federal Confidentiality of Alcohol and Drug Abuse Patient Records regulations: The Federal rules restrict any use of the information to criminally investigate or prosecute any alcohol or drug abuse patient.[facility] CenterIn the event this information is protected by the Federal Confidentiality of Alcohol and Drug Abuse Patient Records regulations: The Federal rules restrict any use of the information to criminally investigate or prosecute any alcohol or drug abuse patient.[facility] CenterIn the event this information is protected by the Federal Confidentiality of Alcohol and Drug Abuse Patient Records regulations: The Federal rules restrict any use of the information to criminally investigate or prosecute any alcohol or drug abuse patient.[facility] CenterIn the event this information is protected by the Federal Confidentiality of Alcohol and Drug Abuse Patient Records regulations: The Federal rules restrict any use of the information to criminally investigate or prosecute any alcohol or drug abuse patient.[facility] CenterIn the event this information is protected by the Federal Confidentiality of Alcohol and Drug Abuse Patient Records regulations: The Federal rules restrict any use of the information to criminally investigate or prosecute any alcohol or drug abuse patient.[facility] CenterIn the event this information is protected by the Federal Confidentiality of Alcohol and Drug Abuse Patient Records regulations: The Federal rules restrict any use of the information to criminally investigate or prosecute any alcohol or drug abuse patient.[facility] CenterIn the event this information is protected by the Federal Confidentiality of Alcohol and Drug Abuse Patient Records regulations: The Federal rules restrict any use of the information to criminally investigate or prosecute any alcohol or drug abuse patient.[facility] CenterIn the event this information is protected by the Federal Confidentiality of Alcohol and Drug Abuse Patient Records regulations: The Federal rules restrict any use of the information to criminally investigate or prosecute any alcohol or drug abuse patient.[facility] CenterIn the event this information is protected by the Federal Confidentiality of Alcohol and Drug Abuse Patient Records regulations: The Federal rules restrict any use of the information to criminally investigate or prosecute any alcohol or drug abuse patient.[facility] CenterIn the event this information is protected by the Federal Confidentiality of Alcohol and Drug Abuse Patient Records regulations: The Federal rules restrict any use of the information to criminally investigate or prosecute any alcohol or drug abuse patient.[facility] CenterIn the event this information is protected by the Federal Confidentiality of Alcohol and Drug Abuse Patient Records regulations: The Federal rules restrict any use of the information to criminally investigate or prosecute any alcohol or drug abuse patient.[facility] CenterIn the event this information is protected by the Federal Confidentiality of Alcohol and Drug Abuse Patient Records regulations: The Federal rules restrict any use of the information to criminally investigate or prosecute any alcohol or drug abuse patient.[facility] CenterIn the event this information is protected by the Federal Confidentiality of Alcohol and Drug Abuse Patient Records regulations: The Federal rules restrict any use of the information to criminally investigate or prosecute any alcohol or drug abuse patient.[facility] CenterIn the event this information is protected by the Federal Confidentiality of Alcohol and Drug Abuse Patient Records regulations: The Federal rules restrict any use of the information to criminally investigate or prosecute any alcohol or drug abuse patient.[facility] CenterIn the event this information is protected by the Federal Confidentiality of Alcohol and Drug Abuse Patient Records regulations: The Federal rules restrict any use of the information to criminally investigate or prosecute any alcohol or drug abuse patient.[facility] CenterIn the event this information is protected by the Federal Confidentiality of Alcohol and Drug Abuse Patient Records regulations: The Federal rules restrict any use of the information to criminally investigate or prosecute any alcohol or drug abuse patient.[facility] CenterIn the event this information is protected by the Federal Confidentiality of Alcohol and Drug Abuse Patient Records regulations: The Federal rules restrict any use of the information to criminally investigate or prosecute any alcohol or drug abuse patient.[facility] CenterIn the event this information is protected by the Federal Confidentiality of Alcohol and Drug Abuse Patient Records regulations: The Federal rules restrict any use of the information to criminally investigate or prosecute any alcohol or drug abuse patient.[facility] CenterIn the event this information is protected by the Federal Confidentiality of Alcohol and Drug Abuse Patient Records regulations: The Federal rules restrict any use of the information to criminally investigate or prosecute any alcohol or drug abuse patient.[facility] CenterIn the event this information is protected by the Federal Confidentiality of Alcohol and Drug Abuse Patient Records regulations: The Federal rules restrict any use of the information to criminally investigate or prosecute any alcohol or drug abuse patient.[facility] CenterIn the event this information is protected by the Federal Confidentiality of Alcohol and Drug Abuse Patient Records regulations: The Federal rules restrict any use of the information to criminally investigate or prosecute any alcohol or drug abuse patient.[facility] CenterIn the event this information is protected by the Federal Confidentiality of Alcohol and Drug Abuse Patient Records regulations: The Federal rules restrict any use of the information to criminally investigate or prosecute any alcohol or drug abuse patient.[facility] CenterIn the event this information is protected by the Federal Confidentiality of Alcohol and Drug Abuse Patient Records regulations: The Federal rules restrict any use of the information to criminally investigate or prosecute any alcohol or drug abuse patient.[facility] CenterIn the event this information is protected by the Federal Confidentiality of Alcohol and Drug Abuse Patient Records regulations: The Federal rules restrict any use of the information to criminally investigate or prosecute any alcohol or drug abuse patient.[facility] CenterIn the event this information is protected by the Federal Confidentiality of Alcohol and Drug Abuse Patient Records regulations: The Federal rules restrict any use of the information to criminally investigate or prosecute any alcohol or drug abuse patient.[facility] CenterIn the event this information is protected by the Federal Confidentiality of Alcohol and Drug Abuse Patient Records regulations: The Federal rules restrict any use of the information to criminally investigate or prosecute any alcohol or drug abuse patient.[facility] CenterIn the event this information is protected by the Federal Confidentiality of Alcohol and Drug Abuse Patient Records regulations: The Federal rules restrict any use of the information to criminally investigate or prosecute any alcohol or drug abuse patient.[facility] CenterIn the event this information is protected by the Federal Confidentiality of Alcohol and Drug Abuse Patient Records regulations: The Federal rules restrict any use of the information to criminally investigate or prosecute any alcohol or drug abuse patient.[facility] CenterIn the event this information is protected by the Federal Confidentiality of Alcohol and Drug Abuse Patient Records regulations: The Federal rules restrict any use of the information to criminally investigate or prosecute any alcohol or drug abuse patient.[facility] CenterIn the event this information is protected by the Federal Confidentiality of Alcohol and Drug Abuse Patient Records regulations: The Federal rules restrict any use of the information to criminally investigate or prosecute any alcohol or drug abuse patient.[facility] CenterIn the event this information is protected by the Federal Confidentiality of Alcohol and Drug Abuse Patient Records regulations: The Federal rules restrict any use of the information to criminally investigate or prosecute any alcohol or drug abuse patient.[facility] CenterIn the event this information is protected by the Federal Confidentiality of Alcohol and Drug Abuse Patient Records regulations: The Federal rules restrict any use of the information to criminally investigate or prosecute any alcohol or drug abuse patient.[facility] CenterIn the event this information is protected by the Federal Confidentiality of Alcohol and Drug Abuse Patient Records regulations: The Federal rules restrict any use of the information to criminally investigate or prosecute any alcohol or drug abuse patient.[facility] CenterIn the event this information is protected by the Federal Confidentiality of Alcohol and Drug Abuse Patient Records regulations: The Federal rules restrict any use of the information to criminally investigate or prosecute any alcohol or drug abuse patient.[facility] CenterIn the event this information is protected by the Federal Confidentiality of Alcohol and Drug Abuse Patient Records regulations: The Federal rules restrict any use of the information to criminally investigate or prosecute any alcohol or drug abuse patient.[facility] CenterIn the event this information is protected by the Federal Confidentiality of Alcohol and Drug Abuse Patient Records regulations: The Federal rules restrict any use of the information to criminally investigate or prosecute any alcohol or drug abuse patient.[facility] the event this information is protected by the Federal Confidentiality of Alcohol and Drug Abuse Patient Records regulations: The Federal rules restrict any use of the information to criminally investigate or prosecute any alcohol or drug abuse patient.[facility] CenterIn the event this information is protected by the Federal Confidentiality of Alcohol and Drug Abuse Patient Records regulations: The Federal rules restrict any use of the information to criminally investigate or prosecute any alcohol or drug abuse patient.[facility]In the event this information is protected by the Federal Confidentiality of Alcohol and Drug Abuse Patient Records regulations: The Federal rules restrict any use of the information to criminally investigate or prosecute any alcohol or drug abuse patient.[facility]In the event this information is protected by the Federal Confidentiality of Alcohol and Drug Abuse Patient Records regulations: The Federal rules restrict any use of the information to criminally investigate or prosecute any alcohol or drug abuse patient.[facility]In the event this information is protected by the Federal Confidentiality of Alcohol and Drug Abuse Patient Records regulations: The Federal rules restrict any use of the information to criminally investigate or prosecute any alcohol or drug abuse patient.[facility] CenterIn the event this information is protected by the Federal Confidentiality of Alcohol and Drug Abuse Patient Records regulations: The Federal rules restrict any use of the information to criminally investigate or prosecute any alcohol or drug abuse patient.[facility] CenterIn the event this information is protected by the Federal Confidentiality of Alcohol and Drug Abuse Patient Records regulations: The Federal rules restrict any use of the information to criminally investigate or prosecute any alcohol or drug abuse patient.[facility] CenterIn the event this information is protected by the Federal Confidentiality of Alcohol and Drug Abuse Patient Records regulations: The Federal rules restrict any use of the information to criminally investigate or prosecute any alcohol or drug abuse patient.[facility] CenterIn the event this information is protected by the Federal Confidentiality of Alcohol and Drug Abuse Patient Records regulations: The Federal rules restrict any use of the information to criminally investigate or prosecute any alcohol or drug abuse patient.[facility]In the event this information is protected by the Federal Confidentiality of Alcohol and Drug Abuse Patient Records regulations: The Federal rules restrict any use of the information to criminally investigate or prosecute any alcohol or drug abuse patient.[facility]In the event this information is protected by the Federal Confidentiality of Alcohol and Drug Abuse Patient Records regulations: The Federal rules restrict any use of the information to criminally investigate or prosecute any alcohol or drug abuse patient.[facility]In the event this information is protected by the Federal Confidentiality of Alcohol and Drug Abuse Patient Records regulations: The Federal rules restrict any use of the information to criminally investigate or prosecute any alcohol or drug abuse patient.[facility]In the event this information is protected by the Federal Confidentiality of Alcohol and Drug Abuse Patient Records regulations: The Federal rules restrict any use of the information to criminally investigate or prosecute any alcohol or drug abuse patient.[facility] CenterIn the event this information is protected by the Federal Confidentiality of Alcohol and Drug Abuse Patient Records regulations: The Federal rules restrict any use of the information to criminally investigate or prosecute any alcohol or drug abuse patient.[facility] CenterIn the event this information is protected by the Federal Confidentiality of Alcohol and Drug Abuse Patient Records regulations: The Federal rules restrict any use of the information to criminally investigate or prosecute any alcohol or drug abuse patient.[facility] CenterIn the event this information is protected by the Federal Confidentiality of Alcohol and Drug Abuse Patient Records regulations: The Federal rules restrict any use of the information to criminally investigate or prosecute any alcohol or drug abuse patient.[facility] CenterIn the event this information is protected by the Federal Confidentiality of Alcohol and Drug Abuse Patient Records regulations: The Federal rules restrict any use of the information to criminally investigate or prosecute any alcohol or drug abuse patient.[facility]In the event this information is protected by the Federal Confidentiality of Alcohol and Drug Abuse Patient Records regulations: The Federal rules restrict any use of the information to criminally investigate or prosecute any alcohol or drug abuse patient.[facility] CenterIn the event this information is protected by the Federal Confidentiality of Alcohol and Drug Abuse Patient Records regulations: The Federal rules restrict any use of the information to criminally investigate or prosecute any alcohol or drug abuse patient.[facility] CenterIn the event this information is protected by the Federal Confidentiality of Alcohol and Drug Abuse Patient Records regulations: The Federal rules restrict any use of the information to criminally investigate or prosecute any alcohol or drug abuse patient.[facility]In the event this information is protected by the Federal Confidentiality of Alcohol and Drug Abuse Patient Records regulations: The Federal rules restrict any use of the information to criminally investigate or prosecute any alcohol or drug abuse patient.[facility] CenterIn the event this information is protected by the Federal Confidentiality of Alcohol and Drug Abuse Patient Records regulations: The Federal rules restrict any use of the information to criminally investigate or prosecute any alcohol or drug abuse patient.[facility] CenterIn the event this information is protected by the Federal Confidentiality of Alcohol and Drug Abuse Patient Records regulations: The Federal rules restrict any use of the information to criminally investigate or prosecute any alcohol or drug abuse patient.[facility]In the event this information is protected by the Federal Confidentiality of Alcohol and Drug Abuse Patient Records regulations: The Federal rules restrict any use of the information to criminally investigate or prosecute any alcohol or drug abuse patient.[facility]In the event this information is protected by the Federal Confidentiality of Alcohol and Drug Abuse Patient Records regulations: The Federal rules restrict any use of the information to criminally investigate or prosecute any alcohol or drug abuse patient.[facility]In the event this information is protected by the Federal Confidentiality of Alcohol and Drug Abuse Patient Records regulations: The Federal rules restrict any use of the information to criminally investigate or prosecute any alcohol or drug abuse patient.[facility]In the event this information is protected by the Federal Confidentiality of Alcohol and Drug Abuse Patient Records regulations: The Federal rules restrict any use of the information to criminally investigate or prosecute any alcohol or drug abuse patient.[facility]In the event this information is protected by the Federal Confidentiality of Alcohol and Drug Abuse Patient Records regulations: The Federal rules restrict any use of the information to criminally investigate or prosecute any alcohol or drug abuse patient.[facility] CenterIn the event this information is protected by the Federal Confidentiality of Alcohol and Drug Abuse Patient Records regulations: The Federal rules restrict any use of the information to criminally investigate or prosecute any alcohol or drug abuse patient.[facility]In the event this information is protected by the Federal Confidentiality of Alcohol and Drug Abuse Patient Records regulations: The Federal rules restrict any use of the information to criminally investigate or prosecute any alcohol or drug abuse patient.[facility]In the event this information is protected by the Federal Confidentiality of Alcohol and Drug Abuse Patient Records regulations: The Federal rules restrict any use of the information to criminally investigate or prosecute any alcohol or drug abuse patient.[facility]In the event this information is protected by the Federal Confidentiality of Alcohol and Drug Abuse Patient Records regulations: The Federal rules restrict any use of the information to criminally investigate or prosecute any alcohol or drug abuse patient.[facility]In the event this information is protected by the Federal Confidentiality of Alcohol and Drug Abuse Patient Records regulations: The Federal rules restrict any use of the information to criminally investigate or prosecute any alcohol or drug abuse patient.[facility]In the event this information is protected by the Federal Confidentiality of Alcohol and Drug Abuse Patient Records regulations: The Federal rules restrict any use of the information to criminally investigate or prosecute any alcohol or drug abuse patient.[facility]In the event this information is protected by the Federal Confidentiality of Alcohol and Drug Abuse Patient Records regulations: The Federal rules restrict any use of the information to criminally investigate or prosecute any alcohol or drug abuse patient.[facility]In the event this information is protected by the Federal Confidentiality of Alcohol and Drug Abuse Patient Records regulations: The Federal rules restrict any use of the information to criminally investigate or prosecute any alcohol or drug abuse patient.[facility]In the event this information is protected by the Federal Confidentiality of Alcohol and Drug Abuse Patient Records regulations: The Federal rules restrict any use of the information to criminally investigate or prosecute any alcohol or drug abuse patient.[facility]In the event this information is protected by the Federal Confidentiality of Alcohol and Drug Abuse Patient Records regulations: The Federal rules restrict any use of the information to criminally investigate or prosecute any alcohol or drug abuse patient.[facility]In the event this information is protected by the Federal Confidentiality of Alcohol and Drug Abuse Patient Records regulations: The Federal rules restrict any use of the information to criminally investigate or prosecute any alcohol or drug abuse patient.[facility]In the event this information is protected by the Federal Confidentiality of Alcohol and Drug Abuse Patient Records regulations: The Federal rules restrict any use of the information to criminally investigate or prosecute any alcohol or drug abuse patient.[facility]In the event this information is protected by the Federal Confidentiality of Alcohol and Drug Abuse Patient Records regulations: The Federal rules restrict any use of the information to criminally investigate or prosecute any alcohol or drug abuse patient.[facility]In the event this information is protected by the Federal Confidentiality of Alcohol and Drug Abuse Patient Records regulations: The Federal rules restrict any use of the information to criminally investigate or prosecute any alcohol or drug abuse patient.[facility]In the event this information is protected by the Federal Confidentiality of Alcohol and Drug Abuse Patient Records regulations: The Federal rules restrict any use of the information to criminally investigate or prosecute any alcohol or drug abuse patient.[facility]In the event this information is protected by the Federal Confidentiality of Alcohol and Drug Abuse Patient Records regulations: The Federal rules restrict any use of the information to criminally investigate or prosecute any alcohol or drug abuse patient.[facility]In the event this information is protected by the Federal Confidentiality of Alcohol and Drug Abuse Patient Records regulations: The Federal rules restrict any use of the information to criminally investigate or prosecute any alcohol or drug abuse patient.[facility]In the event this information is protected by the Federal Confidentiality of Alcohol and Drug Abuse Patient Records regulations: The Federal rules restrict any use of the information to criminally investigate or prosecute any alcohol or drug abuse patient.[facility]In the event this information is protected by the Federal Confidentiality of Alcohol and Drug Abuse Patient Records regulations: The Federal rules restrict any use of the information to criminally investigate or prosecute any alcohol or drug abuse patient.[facility]In the event this information is protected by the Federal Confidentiality of Alcohol and Drug Abuse Patient Records regulations: The Federal rules restrict any use of the information to criminally investigate or prosecute any alcohol or drug abuse patient.[facility]In the event this information is protected by the Federal Confidentiality of Alcohol and Drug Abuse Patient Records regulations: The Federal rules restrict any use of the information to criminally investigate or prosecute any alcohol or drug abuse patient.[facility]In the event this information is protected by the Federal Confidentiality of Alcohol and Drug Abuse Patient Records regulations: The Federal rules restrict any use of the information to criminally investigate or prosecute any alcohol or drug abuse patient.[facility]In the event this information is protected by the Federal Confidentiality of Alcohol and Drug Abuse Patient Records regulations: The Federal rules restrict any use of the information to criminally investigate or prosecute any alcohol or drug abuse patient.[facility]In the event this information is protected by the Federal Confidentiality of Alcohol and Drug Abuse Patient Records regulations: The Federal rules restrict any use of the information to criminally investigate or prosecute any alcohol or drug abuse patient.[facility]In the event this information is protected by the Federal Confidentiality of Alcohol and Drug Abuse Patient Records regulations: The Federal rules restrict any use of the information to criminally investigate or prosecute any alcohol or drug abuse patient.[facility]In the event this information is protected by the Federal Confidentiality of Alcohol and Drug Abuse Patient Records regulations: The Federal rules restrict any use of the information to criminally investigate or prosecute any alcohol or drug abuse patient.[facility]In the event this information is protected by the Federal Confidentiality of Alcohol and Drug Abuse Patient Records regulations: The Federal rules restrict any use of the information to criminally investigate or prosecute any alcohol or drug abuse patient.[facility]In the event this information is protected by the Federal Confidentiality of Alcohol and Drug Abuse Patient Records regulations: The Federal rules restrict any use of the information to criminally investigate or prosecute any alcohol or drug abuse patient.[facility]In the event this information is protected by the Federal Confidentiality of Alcohol and Drug Abuse Patient Records regulations: The Federal rules restrict any use of the information to criminally investigate or prosecute any alcohol or drug abuse patient.[facility]In the event this information is protected by the Federal Confidentiality of Alcohol and Drug Abuse Patient Records regulations: The Federal rules restrict any use of the information to criminally investigate or prosecute any alcohol or drug abuse patient.[facility]In the event this information is protected by the Federal Confidentiality of Alcohol and Drug Abuse Patient Records regulations: The Federal rules restrict any use of the information to criminally investigate or prosecute any alcohol or drug abuse patient.[facility]In the event this information is protected by the Federal Confidentiality of Alcohol and Drug Abuse Patient Records regulations: The Federal rules restrict any use of the information to criminally investigate or prosecute any alcohol or drug abuse patient.[facility]In the event this information is protected by the Federal Confidentiality of Alcohol and Drug Abuse Patient Records regulations: The Federal rules restrict any use of the information to criminally investigate or prosecute any alcohol or drug abuse patient.[facility]In the event this information is protected by the Federal Confidentiality of Alcohol and Drug Abuse Patient Records regulations: The Federal rules restrict any use of the information to criminally investigate or prosecute any alcohol or drug abuse patient.[facility]In the event this information is protected by the Federal Confidentiality of Alcohol and Drug Abuse Patient Records regulations: The Federal rules restrict any use of the information to criminally investigate or prosecute any alcohol or drug abuse patient.[facility]In the event this information is protected by the Federal Confidentiality of Alcohol and Drug Abuse Patient Records regulations: The Federal rules restrict any use of the information to criminally investigate or prosecute any alcohol or drug abuse patient.[facility]In the event this information is protected by the Federal Confidentiality of Alcohol and Drug Abuse Patient Records regulations: The Federal rules restrict any use of the information to criminally investigate or prosecute any alcohol or drug abuse patient.[facility]In the event this information is protected by the Federal Confidentiality of Alcohol and Drug Abuse Patient Records regulations: The Federal rules restrict any use of the information to criminally investigate or prosecute any alcohol or drug abuse patient.[facility]In the event this information is protected by the Federal Confidentiality of Alcohol and Drug Abuse Patient Records regulations: The Federal rules restrict any use of the information to criminally investigate or prosecute any alcohol or drug abuse patient.[facility]In the event this information is protected by the Federal Confidentiality of Alcohol and Drug Abuse Patient Records regulations: The Federal rules restrict any use of the information to criminally investigate or prosecute any alcohol or drug abuse patient.[facility]In the event this information is protected by the Federal Confidentiality of Alcohol and Drug Abuse Patient Records regulations: The Federal rules restrict any use of the information to criminally investigate or prosecute any alcohol or drug abuse patient.[facility]In the event this information is protected by the Federal Confidentiality of Alcohol and Drug Abuse Patient Records regulations: The Federal rules restrict any use of the information to criminally investigate or prosecute any alcohol or drug abuse patient.[facility]In the event this information is protected by the Federal Confidentiality of Alcohol and Drug Abuse Patient Records regulations: The Federal rules restrict any use of the information to criminally investigate or prosecute any alcohol or drug abuse patient.[facility]In the event this information is protected by the Federal Confidentiality of Alcohol and Drug Abuse Patient Records regulations: The Federal rules restrict any use of the information to criminally investigate or prosecute any alcohol or drug abuse patient.[facility]In the event this information is protected by the Federal Confidentiality of Alcohol and Drug Abuse Patient Records regulations: The Federal rules restrict any use of the information to criminally investigate or prosecute any alcohol or drug abuse patient.[facility]In the event this information is protected by the Federal Confidentiality of Alcohol and Drug Abuse Patient Records regulations: The Federal rules restrict any use of the information to criminally investigate or prosecute any alcohol or drug abuse patient.[facility]In the event this information is protected by the Federal Confidentiality of Alcohol and Drug Abuse Patient Records regulations: The Federal rules restrict any use of the information to criminally investigate or prosecute any alcohol or drug abuse patient.[facility]In the event this information is protected by the Federal Confidentiality of Alcohol and Drug Abuse Patient Records regulations: The Federal rules restrict any use of the information to criminally investigate or prosecute any alcohol or drug abuse patient.[facility]In the event this information is protected by the Federal Confidentiality of Alcohol and Drug Abuse Patient Records regulations: The Federal rules restrict any use of the information to criminally investigate or prosecute any alcohol or drug abuse patient.[facility]In the event this information is protected by the Federal Confidentiality of Alcohol and Drug Abuse Patient Records regulations: The Federal rules restrict any use of the information to criminally investigate or prosecute any alcohol or drug abuse patient.[facility]In the event this information is protected by the Federal Confidentiality of Alcohol and Drug Abuse Patient Records regulations: The Federal rules restrict any use of the information to criminally investigate or prosecute any alcohol or drug abuse patient.[facility]In the event this information is protected by the Federal Confidentiality of Alcohol and Drug Abuse Patient Records regulations: The Federal rules restrict any use of the information to criminally investigate or prosecute any alcohol or drug abuse patient.[facility]In the event this information is protected by the Federal Confidentiality of Alcohol and Drug Abuse Patient Records regulations: The Federal rules restrict any use of the information to criminally investigate or prosecute any alcohol or drug abuse patient.[facility]In the event this information is protected by the Federal Confidentiality of Alcohol and Drug Abuse Patient Records regulations: The Federal rules restrict any use of the information to criminally investigate or prosecute any alcohol or drug abuse patient.[facility]In the event this information is protected by the Federal Confidentiality of Alcohol and Drug Abuse Patient Records regulations: The Federal rules restrict any use of the information to criminally investigate or prosecute any alcohol or drug abuse patient.[facility] CenterIn the event this information is protected by the Federal Confidentiality of Alcohol and Drug Abuse Patient Records regulations: The Federal rules restrict any use of the information to criminally investigate or prosecute any alcohol or drug abuse patient.[facility] CenterIn the event this information is protected by the Federal Confidentiality of Alcohol and Drug Abuse Patient Records regulations: The Federal rules restrict any use of the information to criminally investigate or prosecute any alcohol or drug abuse patient.[facility] CenterIn the event this information is protected by the Federal Confidentiality of Alcohol and Drug Abuse Patient Records regulations: The Federal rules restrict any use of the information to criminally investigate or prosecute any alcohol or drug abuse patient.[facility] CenterIn the event this information is protected by the Federal Confidentiality of Alcohol and Drug Abuse Patient Records regulations: The Federal rules restrict any use of the information to criminally investigate or prosecute any alcohol or drug abuse patient.[facility] CenterIn the event this information is protected by the Federal Confidentiality of Alcohol and Drug Abuse Patient Records regulations: The Federal rules restrict any use of the information to criminally investigate or prosecute any alcohol or drug abuse patient.[facility] CenterIn the event this information is protected by the Federal Confidentiality of Alcohol and Drug Abuse Patient Records regulations: The Federal rules restrict any use of the information to criminally investigate or prosecute any alcohol or drug abuse patient.[facility] CenterIn the event this information is protected by the Federal Confidentiality of Alcohol and Drug Abuse Patient Records regulations: The Federal rules restrict any use of the information to criminally investigate or prosecute any alcohol or drug abuse patient.[facility] CenterIn the event this information is protected by the Federal Confidentiality of Alcohol and Drug Abuse Patient Records regulations: The Federal rules restrict any use of the information to criminally investigate or prosecute any alcohol or drug abuse patient.[facility] CenterIn the event this information is protected by the Federal Confidentiality of Alcohol and Drug Abuse Patient Records regulations: The Federal rules restrict any use of the information to criminally investigate or prosecute any alcohol or drug abuse patient.[facility] CenterIn the event this information is protected by the Federal Confidentiality of Alcohol and Drug Abuse Patient Records regulations: The Federal rules restrict any use of the information to criminally investigate or prosecute any alcohol or drug abuse patient.[facility] CenterIn the event this information is protected by the Federal Confidentiality of Alcohol and Drug Abuse Patient Records regulations: The Federal rules restrict any use of the information to criminally investigate or prosecute any alcohol or drug abuse patient.[facility] CenterIn the event this information is protected by the Federal Confidentiality of Alcohol and Drug Abuse Patient Records regulations: The Federal rules restrict any use of the information to criminally investigate or prosecute any alcohol or drug abuse patient.[facility] CenterIn the event this information is protected by the Federal Confidentiality of Alcohol and Drug Abuse Patient Records regulations: The Federal rules restrict any use of the information to criminally investigate or prosecute any alcohol or drug abuse patient.[facility] CenterIn the event this information is protected by the Federal Confidentiality of Alcohol and Drug Abuse Patient Records regulations: The Federal rules restrict any use of the information to criminally investigate or prosecute any alcohol or drug abuse patient.[facility] CenterIn the event this information is protected by the Federal Confidentiality of Alcohol and Drug Abuse Patient Records regulations: The Federal rules restrict any use of the information to criminally investigate or prosecute any alcohol or drug abuse patient.[facility] CenterIn the event this information is protected by the Federal Confidentiality of Alcohol and Drug Abuse Patient Records regulations: The Federal rules restrict any use of the information to criminally investigate or prosecute any alcohol or drug abuse patient.[facility] CenterIn the event this information is protected by the Federal Confidentiality of Alcohol and Drug Abuse Patient Records regulations: The Federal rules restrict any use of the information to criminally investigate or prosecute any alcohol or drug abuse patient.[facility] CenterIn the event this information is protected by the Federal Confidentiality of Alcohol and Drug Abuse Patient Records regulations: The Federal rules restrict any use of the information to criminally investigate or prosecute any alcohol or drug abuse patient.[facility] CenterIn the event this information is protected by the Federal Confidentiality of Alcohol and Drug Abuse Patient Records regulations: The Federal rules restrict any use of the information to criminally investigate or prosecute any alcohol or drug abuse patient.[facility] CenterIn the event this information is protected by the Federal Confidentiality of Alcohol and Drug Abuse Patient Records regulations: The Federal rules restrict any use of the information to criminally investigate or prosecute any alcohol or drug abuse patient.[facility] CenterIn the event this information is protected by the Federal Confidentiality of Alcohol and Drug Abuse Patient Records regulations: The Federal rules restrict any use of the information to criminally investigate or prosecute any alcohol or drug abuse patient.[facility] CenterIn the event this information is protected by the Federal Confidentiality of Alcohol and Drug Abuse Patient Records regulations: The Federal rules restrict any use of the information to criminally investigate or prosecute any alcohol or drug abuse patient.[facility] CenterIn the event this information is protected by the Federal Confidentiality of Alcohol and Drug Abuse Patient Records regulations: The Federal rules restrict any use of the information to criminally investigate or prosecute any alcohol or drug abuse patient.[facility] CenterIn the event this information is protected by the Federal Confidentiality of Alcohol and Drug Abuse Patient Records regulations: The Federal rules restrict any use of the information to criminally investigate or prosecute any alcohol or drug abuse patient.[facility] CenterIn the event this information is protected by the Federal Confidentiality of Alcohol and Drug Abuse Patient Records regulations: The Federal rules restrict any use of the information to criminally investigate or prosecute any alcohol or drug abuse patient.[facility] CenterIn the event this information is protected by the Federal Confidentiality of Alcohol and Drug Abuse Patient Records regulations: The Federal rules restrict any use of the information to criminally investigate or prosecute any alcohol or drug abuse patient.[facility] CenterIn the event this information is protected by the Federal Confidentiality of Alcohol and Drug Abuse Patient Records regulations: The Federal rules restrict any use of the information to criminally investigate or prosecute any alcohol or drug abuse patient.[facility] CenterIn the event this information is protected by the Federal Confidentiality of Alcohol and Drug Abuse Patient Records regulations: The Federal rules restrict any use of the information to criminally investigate or prosecute any alcohol or drug abuse patient.[facility] CenterIn the event this information is protected by the Federal Confidentiality of Alcohol and Drug Abuse Patient Records regulations: The Federal rules restrict any use of the information to criminally investigate or prosecute any alcohol or drug abuse patient.[facility] CenterIn the event this information is protected by the Federal Confidentiality of Alcohol and Drug Abuse Patient Records regulations: The Federal rules restrict any use of the information to criminally investigate or prosecute any alcohol or drug abuse patient.[facility] CenterIn the event this information is protected by the Federal Confidentiality of Alcohol and Drug Abuse Patient Records regulations: The Federal rules restrict any use of the information to criminally investigate or prosecute any alcohol or drug abuse patient.[facility] CenterIn the event this information is protected by the Federal Confidentiality of Alcohol and Drug Abuse Patient Records regulations: The Federal rules restrict any use of the information to criminally investigate or prosecute any alcohol or drug abuse patient.[facility] CenterIn the event this information is protected by the Federal Confidentiality of Alcohol and Drug Abuse Patient Records regulations: The Federal rules restrict any use of the information to criminally investigate or prosecute any alcohol or drug abuse patient.[facility] CenterIn the event this information is protected by the Federal Confidentiality of Alcohol and Drug Abuse Patient Records regulations: The Federal rules restrict any use of the information to criminally investigate or prosecute any alcohol or drug abuse patient.[facility] CenterIn the event this information is protected by the Federal Confidentiality of Alcohol and Drug Abuse Patient Records regulations: The Federal rules restrict any use of the information to criminally investigate or prosecute any alcohol or drug abuse patient.[facility] CenterIn the event this information is protected by the Federal Confidentiality of Alcohol and Drug Abuse Patient Records regulations: The Federal rules restrict any use of the information to criminally investigate or prosecute any alcohol or drug abuse patient.[facility] CenterIn the event this information is protected by the Federal Confidentiality of Alcohol and Drug Abuse Patient Records regulations: The Federal rules restrict any use of the information to criminally investigate or prosecute any alcohol or drug abuse patient.[facility] CenterIn the event this information is protected by the Federal Confidentiality of Alcohol and Drug Abuse Patient Records regulations: The Federal rules restrict any use of the information to criminally investigate or prosecute any alcohol or drug abuse patient.[facility] CenterIn the event this information is protected by the Federal Confidentiality of Alcohol and Drug Abuse Patient Records regulations: The Federal rules restrict any use of the information to criminally investigate or prosecute any alcohol or drug abuse patient.[facility] CenterIn the event this information is protected by the Federal Confidentiality of Alcohol and Drug Abuse Patient Records regulations: The Federal rules restrict any use of the information to criminally investigate or prosecute any alcohol or drug abuse patient.[facility] CenterIn the event this information is protected by the Federal Confidentiality of Alcohol and Drug Abuse Patient Records regulations: The Federal rules restrict any use of the information to criminally investigate or prosecute any alcohol or drug abuse patient.[facility] CenterIn the event this information is protected by the Federal Confidentiality of Alcohol and Drug Abuse Patient Records regulations: The Federal rules restrict any use of the information to criminally investigate or prosecute any alcohol or drug abuse patient.[facility] CenterIn the event this information is protected by the Federal Confidentiality of Alcohol and Drug Abuse Patient Records regulations: The Federal rules restrict any use of the information to criminally investigate or prosecute any alcohol or drug abuse patient.[facility] CenterIn the event this information is protected by the Federal Confidentiality of Alcohol and Drug Abuse Patient Records regulations: The Federal rules restrict any use of the information to criminally investigate or prosecute any alcohol or drug abuse patient.[facility] CenterIn the event this information is protected by the Federal Confidentiality of Alcohol and Drug Abuse Patient Records regulations: The Federal rules restrict any use of the information to criminally investigate or prosecute any alcohol or drug abuse patient.[facility] CenterIn the event this information is protected by the Federal Confidentiality of Alcohol and Drug Abuse Patient Records regulations: The Federal rules restrict any use of the information to criminally investigate or prosecute any alcohol or drug abuse patient.[facility] CenterIn the event this information is protected by the Federal Confidentiality of Alcohol and Drug Abuse Patient Records regulations: The Federal rules restrict any use of the information to criminally investigate or prosecute any alcohol or drug abuse patient.[facility] Reason for Visit (unrecogniz ed section and content) Reason Comments Radiology CT Specialty Diagnoses / Procedures Referred By Contac t Referred To Contact CT IMAGING Diagnoses 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) Procedures CT CHEST W IVCON DIAGNOSTIC COMPUTED TOMOGRAPHY THORAX W/CONTRAST Grace Bess MD [address] [place] [address] [place] [address] Referral ID Status Reason Start Date Expiration Date V isits Requested Visits Authorized [id number] Closed Auto-Generate d Referral 05/26/2023 06/03/2024 1 1 Reason Comments Radiology [place] Referral ID Status Reason Start Date Expiration Date V isits Requested Visits Authorized [id number] Closed Auto-Generate d Referral 08/16/2023 08/31/2024 1 [...] Comments Benefits Investigation Reason Comments 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 Reason Comments Nutrition Assessment Reason Comments Care Coordination Antiemetics transfer red to [facility] [place] in [place] Reason Comments Care Coordination Follow up call Reason Comments Care Coordination C1D1 treatment follo w up call Reason Comments Pancreatic Cancer 1 week follow Reason Comments Pancreatic Cancer Reason Comments Nutrition Counseling Specialty Diagnoses / Procedures Referred By Riaz t Referred To Contact Diagnoses 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) Grace Bess MD [address] [place] [address] Luis Miguel Treat [address] [place] [address] Referral ID Status Reason Start Date Expiration Date V isits Requested Visits Authorized [id number] Authorized 02/22/2022 05/23/2022 99 99 Reason Comments [...] Req This Date/Time Procedures LAB/Grace Murphy MD [address] [place] [address] Luis Miguel Delgado [address] [place] [address] Referral ID Status Reason Start Date Expiration Date V isits Requested Visits Authorized [id number] Authorized 09/28/2022 05/21/2023 99 99 Reason Comments [...] This Date/Time Procedures LAB/PORT Grace Bess MD [address] [place] [address] Luis Miguel Delgado [address] [place] [address] Reason Comments CVAD Access Reason Comments Care [...] Expiration Date V isits Requested Visits Authorized [id number] Authorized 05/24/2023 08/22/2023 99 99 Reason Comments [...] 11/22/2023 Clinical Update 11/22/2023 Reason Comments Care [facility] Portogram results Referral ID Status Reason Start Date Expiration Date V isits Requested Visits Authorized [id number] Closed Auto-Generate d Referral 11/21/2023 11/29/2024 1 1 Reason Comments Radio Gen RMP Referral ID Status Reason Start Date Expiration Date V isits Requested Visits Authorized [id number] Closed Auto-Generate d Referral 11/10/2022 10/29/2023 1 1 Referral ID Status Reason Start Date Expiration Date V isits Requested Visits Authorized [id number] Closed Auto-Generate d Referral 07/25/2022 07/29/2023 1 1 Specialty Diagnoses / Procedures Referred By Contac t Referred To Contact CT IMAGING Diagnoses 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) Procedures CT ABD/PEL W IVCON CT ABD & PELVIS W/CONTRAST Grace Bess MD [address] [place] [address] [place] [address] Referral ID Status Reason Start Date Expiration Date V isits Requested Visits Authorized [id number] Closed Auto-Generate d Referral 06/01/2022 06/10/2023 [address] Referral ID Status Reason Start Date Expiration Date V isits Requested Visits Authorized [id number] Closed Auto-Generate d Referral 03/01/2022 03/24/2023 1 1 Specialty Diagnoses / Procedures Referred By Contac t Referred To Contact CT IMAGING Diagnoses Other chronic pancreatitis (HCC) Procedures CT PANCREAS W IVCON [place] ABDOMEN W/[place] [address] [address] [place] [address] [place] [address] Referral ID Status Reason Start Date Expiration Date V isits Requested Visits Authorized [id number] Closed Auto-Generate d Referral 07/21/2021 08/14/2022 1 1 Care Teams (unrecognized sec tion and content) Life Enrichment Director Relationship Specialty Start Date End Date Giovanni Salinas II [address] [facility] [place] [place] [address] PCP - General Internal Medicine 11/29/19 Cali Rosamaribel Firas [address] [place] [address] Endocrinology 05/08/20 Life Enrichment Director Relationship Specialty Start Date End Date Giovanni Salinas II [address] [place] [address] PCP - General Internal Medicine 11/29/19 Cali Rosamaribel Firas [address] [place] [address] Endocrinology 05/08/20 Life Enrichment Director Relationship Specialty Start Date End Date Giovanni Salinas II [address] [place] [address] PCP - General Internal Medicine 11/29/19 Cali Rosamaribel Firas [address] [place] [address] Endocrinology 05/08/20 Life Enrichment Director Relationship Specialty Start Date End Date Giovanni Salinas II [address] [place] [address] PCP - General Internal Medicine 11/29/19 Cali Rosamarbiel Firas [address] [place] [address] Endocrinology 05/08/20 Life Enrichment Director Relationship Specialty Start Date End Date Giovanni Salinas II [address] [place] [address] PCP - General Internal Medicine 11/29/19 Cali Rosamaribel Firas [address] [place] [address] Endocrinology 05/08/20 Life Enrichment Director Relationship Specialty Start Date End Date Giovanni Salinas II [address] [place] [address] PCP - General Internal Medicine 11/29/19 Cali Rosamaribel Melendez [address] [place] [address] Endocrinology 05/08/20 Life Enrichment Director Relationship Specialty Start Date End Date Giovanni Salinas II [address] [place] [address] PCP - General Internal Medicine 11/29/19 Cali Mehreenailyn Melendez [address] [place] [address] Endocrinology 05/08/20 Life Enrichment Director Relationship Specialty Start Date End Date Giovanni Salinas II [address] [place] [address] PCP - General Internal Medicine 11/29/19 Cali Mehreenailyn Melendez [address] [place] [address] Endocrinology 05/08/20 Life Enrichment Director Relationship Specialty Start Date End Date Giovanni Salinas II [address] [place] [address] PCP - General Internal Medicine 11/29/19 César Leiva [address] [place] [address] Endocrinology 05/08/20 Josephine Salomon RN [address] [place] [address] [place] [address] Specialty Media Relations Director Hematology/Oncology 03/04/22 Grace Bess MD [address] [place] [address] Physician Hematology/Oncology 03/04/22 Greta Wetzel PA-C [address] [facility] [place] [address] Physician Representative Hematology/Oncology 03/04/22 Life Enrichment Director Relationship Specialty Start Date End Date Giovanni Salinas II [address] [facility] [address] [place] [address] PCP - General Internal Medicine 11/29/19 César Leiva [address] [place] [address] Endocrinology 05/08/20 Josephine Salomon RN [address] [facility] [place] [address] Specialty Media Relations Director Hematology/Oncology 03/04/22 Grace Bess MD [address] [place] [address] Physician Hematology/Oncology 03/04/22 Greta Wetzel PA-C [address] [facility] [place] [address] Physician Representative Hematology/Oncology 03/04/22 Life Enrichment Director Relationship Specialty Start Date End Date Giovanni Salinas II [address] [facility] [address] [place] [address] PCP - General Internal Medicine 11/29/19 César Leiva [address] [place] [address] Endocrinology 05/08/20 Josephine Salomon RN [address] [facility] [place] [address] Specialty Media Relations Director Hematology/Oncology 03/04/22 Grace Bess MD [address] [place] [address] Physician Hematology/Oncology 03/04/22 Greta Wetzel PA-C [address] [facility] [place] [place] [address] Physician Representative Hematology/Oncology 03/04/22 Life Enrichment Director Relationship Specialty Start Date End Date Giovanni Salinas II [address] [facility] [address] [place] [address] PCP - General Internal Medicine 11/29/19 César Leiva [address] [place] [address] Endocrinology 05/08/20 Josephine Salomon RN [address] [facility] [place] [address] Specialty Media Relations Director Hematology/Oncology 03/04/22 Grace Bess MD [address] [place] [address] Physician Hematology/Oncology 03/04/22 Greta Wetzel PA-C [address] [facility] [place] [address] Physician Representative Hematology/Oncology 03/04/22 Life Enrichment Director Relationship Specialty Start Date End Date Giovanni Salinas II [address] [place] [address] PCP - General Internal Medicine 11/29/19 César Leiva [address] [place] [address] Endocrinology 05/08/20 Josephine Salomon RN [address] [facility] [place] [address] Specialty Media Relations Director Hematology/Oncology 03/04/22 Grace Bess MD [address] [facility] [place] [address] Physician Hematology/Oncology 03/04/22 Greta Wetzel PA-C [address] [facility] [place] [address] Physician Representative Hematology/Oncology 03/04/22 Life Enrichment Director Relationship Specialty Start Date End Date Giovanni Salinas II [address] [place] [address] PCP - General Internal Medicine 11/29/19 César Leiva [address] [place] [address] Endocrinology 05/08/20 Josephine Salomon RN [address] [facility] [place] [address] Specialty Media Relations Director Hematology/Oncology 03/04/22 Grace Bess MD [address] [place] [address] Physician Hematology/Oncology 03/04/22 Greta Wetzel PA-C [address] [facility] [place] [address] Physician Representative Hematology/Oncology 03/04/22 Life Enrichment Director Relationship Specialty Start Date End Date Giovanni Salinas II [address] [place] [address] PCP - General Internal Medicine 11/29/19 César Leiva [address] [place] [address] Endocrinology 05/08/20 Josephine Salomon RN [address] [facility] [place] [address] Specialty Media Relations Director Hematology/Oncology 03/04/22 Grace Bess MD [address] [place] [address] Physician Hematology/Oncology 03/04/22 Greta Wetzel PA-C [address] [facility] [place] [address] Physician Representative Hematology/Oncology 03/04/22 Life Enrichment Director Relationship Specialty Start Date End Date Giovanni Salinas II [address] [place] [address] PCP - General Internal Medicine 11/29/19 César Leiva [address] [address] [place] [address] Endocrinology 05/08/20 Josephine Salomon RN [address] [facility] [place] [address] Specialty Media Relations Director Hematology/Oncology 03/04/22 Grace Bess MD [address] [place] [address] Physician Hematology/Oncology 03/04/22 Greta Wetzel PA-C [address] [place] [address] Physician Representative Hematology/Oncology 03/04/22 Life Enrichment Director Relationship Specialty Start Date End Date Giovanni Salinas II [address] [place] [address] PCP - General Internal Medicine 11/29/19 César Leiva [address] [place] [address] Endocrinology 05/08/20 Josephine Salomon RN [address] [facility] [place] [address] Specialty Media Relations Director Hematology/Oncology 03/04/22 Grace Bess MD [address] [place] [address] Physician Hematology/Oncology 03/04/22 Greta Wetzel PA-C [address] [facility] [address] [place] [address] Physician Representative Hematology/Oncology 03/04/22 Life Enrichment Director Relationship Specialty Start Date End Date Giovanni Salinas II [address] [place] [address] PCP - General Internal Medicine 11/29/19 [facility] [address] [place] [address] Endocrinology 05/08/20 Josephine Salomon RN [address] [facility] [place] [address] Specialty Media Relations Director Hematology/Oncology 03/04/22 Grace Bess MD [address] [place] [address] Physician Hematology/Oncology 03/04/22 Greta Wetzel PA-C [address] [facility] [place] [address] Physician Representative Hematology/Oncology 03/04/22 Life Enrichment Director Relationship Specialty Start Date End Date Giovanni Salinas II [address] [place] [address] PCP - General Internal Medicine 11/29/19 CaliCésar Firas [address] [place] [address] Endocrinology 05/08/20 Josephine Salomon RN [address] [facility] [place] [address] Specialty Media Relations Director Hematology/Oncology 03/04/22 Grace Bess MD [address] [place] [address] Physician Hematology/Oncology 03/04/22 Greta Wetzel PA-C [address] [facility] [place] [address] Physician Representative Hematology/Oncology 03/04/22 Life Enrichment Director Relationship Specialty Start Date End Date Giovanni Salinas II [address] [place] [address] PCP - General Internal Medicine 11/29/19 César Leiva [address] [place] [address] Endocrinology 05/08/20 Josephine Salomon RN [address] [facility] [place] [address] Specialty Media Relations Director Hematology/Oncology 03/04/22 Grace Bess MD [address] [place] [address] Physician Hematology/Oncology 03/04/22 Greta Wetzel PA-C [address] [facility] [place] [address] Physician Representative Hematology/Oncology 03/04/22 Life Enrichment Director Relationship Specialty Start Date End Date Giovanni Salinas II [address] [place] [address] PCP - General Internal Medicine 11/29/19 César Leiva Firjanel [address] [place] [address] Endocrinology 05/08/20 Josephine Salomon RN [address] [facility] [place] [address] Specialty Media Relations Director Hematology/Oncology 03/04/22 Grace Bess MD [address] [place] [address] Physician Hematology/Oncology 03/04/22 Greta Wetzel PA-C [address] [facility] [place] [address] Physician Representative Hematology/Oncology 03/04/22 Life Enrichment Director Relationship Specialty Start Date End Date Giovanni Salinas II [address] [place] [address] PCP - General Internal Medicine 11/29/19 César Leiva [address] [place] [address] Endocrinology 05/08/20 Josephine Salomon RN [address] [facility] [place] [address] Specialty Media Relations Director Hematology/Oncology 03/04/22 Grace Bess MD [address] [place] [address] Physician Hematology/Oncology 03/04/22 Greta Wetzel PA-C [address] [facility] [place] [address] Physician Representative Hematology/Oncology 03/04/22 Life Enrichment Director Relationship Specialty Start Date End Date Giovanni Salinas II [address] [place] [address] PCP - General Internal Medicine 11/29/19 César Leiva [address] [place] [address] Endocrinology 05/08/20 Josephine Salomon RN [address] [facility] [place] [address] Specialty Media Relations Director Hematology/Oncology 03/04/22 Grace Bess MD [address] [place] [address] Physician Hematology/Oncology 03/04/22 Greta Wetzel PALaurenC [address] [facility] [address] Physician Representative Hematology/Oncology 03/04/22 Life Enrichment Director Relationship Specialty Start Date End Date Giovanni Salinas II [address] [place] [address] PCP - General Internal Medicine 11/29/19 César Leiva [address] [place] [address] Endocrinology 05/08/20 Josephine Salomon RN [address] [facility] [place] [address] Specialty Media Relations Director Hematology/Oncology 03/04/22 Grace Bess MD [address] [place] [address] Physician Hematology/Oncology 03/04/22 Greta Wetzel PA-C [address] [facility] [place] [address] Physician Representative Hematology/Oncology 03/04/22 Life Enrichment Director Relationship Specialty Start Date End Date Giovanni Salinas II [address] [place] [address] PCP - General Internal Medicine 11/29/19 César Leiva [address] [place] [address] Endocrinology 05/08/20 Josephine Salomon, RN [address] [facility] [place] [address] Specialty Media Relations Director Hematology/Oncology 03/04/22 Grace Bess MD [address] [place] [address] Physician Hematology/Oncology 03/04/22 Greta Wetzel, PA-C [address] [facility] [place] [address] Physician Representative Hematology/Oncology 03/04/22 Life Enrichment Director Relationship Specialty Start Date End Date Giovanni Salinas II [address] [facility] [address] [place] [address] PCP - General Internal Medicine 11/29/19 César Leiva MD [address] [place] [address] Endocrinology 05/08/20 Josephine Salomon RN [address] [facility] [place] [address] Specialty Media Relations Director Hematology/Oncology 03/04/22 Grace Bess MD [address] [place] [address] Physician Hematology/Oncology 03/04/22 Greta Wetzel, PA-C [address] [facility] [place] [address] Physician Representative Hematology/Oncology 03/04/22 Life Enrichment Director Relationship Specialty Start Date End Date Giovanni Salinas II [address] [facility] [address] [place] [address] PCP - General Internal Medicine 11/29/19 César Leiva MD [address] [place] [address] Endocrinology 05/08/20 Josephine Salomon, RN [address] [facility] [place] [address] Specialty Media Relations Director Hematology/Oncology 03/04/22 Grace Bess MD [address] [place] [address] Physician Hematology/Oncology 03/04/22 Greta Wetzel PA-C [address] [facility] [place] [address] Physician Representative Hematology/Oncology 03/04/22 Life Enrichment Director Relationship Specialty Start Date End Date Giovanni Salinas II [address] [facility] [address] [place] [address] PCP - General Internal Medicine 11/29/19 César Leiva MD [address] [place] [address] Endocrinology 05/08/20 Josephine Salomon, RN [address] [facility] [place] [address] Specialty Media Relations Director Hematology/Oncology 03/04/22 Grace Bess MD [address] [place] [address] Physician Hematology/Oncology 03/04/22 Greta Wetzel PA-C [address] [facility] [place] [address] Physician Representative Hematology/Oncology 03/04/22 Life Enrichment Director Relationship Specialty Start Date End Date Giovanni Salinas II [address] [place] [address] PCP - General Internal Medicine 11/29/19 César Leiva MD [address] [place] [address] Endocrinology 05/08/20 Josephine Salomon, RN [address] [facility] [place] [address] Specialty Media Relations Director Hematology/Oncology 03/04/22 Grace Bess MD [address] [place] [address] Physician Hematology/Oncology 03/04/22 Greta Wetzel PA-C [address] [facility] [address] Physician Representative Hematology/Oncology 03/04/22 Life Enrichment Director Relationship Specialty Start Date End Date Giovanni Salinas II [address] [place] [address] PCP - General Internal Medicine 11/29/19 César Leiva MD [address] [place] [address] Endocrinology 05/08/20 Josephine Salomon, RN [address] [facility] [address] Specialty Media Relations Director Hematology/Oncology 03/04/22 Grace Bess MD [address] [place] [address] Physician Hematology/Oncology 03/04/22 Greta Wetzel PA-C [address] [facility] [place] [address] Physician Representative Hematology/Oncology 03/04/22 Life Enrichment Director Relationship Specialty Start Date End Date Giovanni Salinas II [address] [place] [address] PCP - General Internal Medicine 11/29/19 César Leiva MD [address] [place] [address] Endocrinology 05/08/20 Josephine Salomon, LUIS ANTONIO [address] [facility] [place] [address] Specialty Media Relations Director Hematology/Oncology 03/04/22 Grace Bess MD [address] [place] [address] Physician Hematology/Oncology 03/04/22 Greta Wetzel, PA-C [address] [facility] [place] [address] Physician Representative Hematology/Oncology 03/04/22 Life Enrichment Director Relationship Specialty Start Date End Date Giovanni Salinas II [address] [facility] [address] [place] [address] PCP - General Internal Medicine 11/29/19 César Leiva MD [address] [place] [address] Endocrinology 05/08/20 Josephine Salomon RN [address] [facility] [place] [address] Specialty Media Relations Director Hematology/Oncology 03/04/22 Grace Bess MD [address] [facility] [place] [address] Physician Hematology/Oncology 03/04/22 Greta Wetzel, PA-C [address] [facility] [place] [address] Physician Representative Hematology/Oncology 03/04/22 Life Enrichment Director Relationship Specialty Start Date End Date Giovanni Salinas II [address] [place] [address] PCP - General Internal Medicine 11/29/19 César Leiva MD [address] [place] [address] Endocrinology 05/08/20 Josephine Salomon RN [address] [facility] [place] [address] Specialty Media Relations Director Hematology/Oncology 03/04/22 Grace Bess MD [address] [place] [address] Physician Hematology/Oncology 03/04/22 Greta Wetzel PA-C [address] [facility] [place] [address] Physician Representative Hematology/Oncology 03/04/22 Life Enrichment Director Relationship Specialty Start Date End Date Giovanni Salinas II [address] [place] [address] PCP - General Internal Medicine 11/29/19 César Leiva MD [address] [place] [address] Endocrinology 05/08/20 Josephine Salomon RN [address] [facility] [place] [address] Specialty Media Relations Director Hematology/Oncology 03/04/22 Grace Bess MD [address] [place] [address] Physician Hematology/Oncology 03/04/22 Greta Wetzel PA-C [address] [place] [address] Physician Representative Hematology/Oncology 03/04/22 Life Enrichment Director Relationship Specialty Start Date End Date Giovanni Salinas II [address] [place] [address] PCP - General Internal Medicine 11/29/19 Céasr Leiva MD [address] [place] [address] Endocrinology 05/08/20 Josephine Salomon, RN [address] [facility] [place] [address] Specialty Media Relations Director Hematology/Oncology 03/04/22 Grace Bess MD [address] [place] [address] Physician Hematology/Oncology 03/04/22 Greta Wetzel PA-C [address] [facility] [place] [address] Physician Representative Hematology/Oncology 03/04/22 Life Enrichment Director Relationship Specialty Start Date End Date Giovanni Salinas II [address] [place] [address] PCP - General Internal Medicine 11/29/19 César Leiva MD [address] [place] [address] Endocrinology 05/08/20 Josephine Salomon RN [address] [facility] [place] [address] Specialty Media Relations Director Hematology/Oncology 03/04/22 Grace Bess MD [address] [facility] [place] [address] Physician Hematology/Oncology 03/04/22 Greta Wetzel PA-C [address] [place] [address] [place] [address] Physician Representative Hematology/Oncology 03/04/22 Life Enrichment Director Relationship Specialty Start Date End Date Giovanni Salinas II [address] [place] [address] PCP - General Internal Medicine 11/29/19 César Leiva MD [address] [place] [address] Endocrinology 05/08/20 Josephine Salomon RN [address] [facility] [place] [address] Specialty Media Relations Director Hematology/Oncology 03/04/22 Grace Bess MD [address] [facility] [place] [address] Physician Hematology/Oncology 03/04/22 Greta Wetzel PA-C [address] [facility] [address] Physician Representative Hematology/Oncology 03/04/22 Life Enrichment Director Relationship Specialty Start Date End Date Giovanni Salinas II [address] [place] [address] PCP - General Internal Medicine 11/29/19 César Leiva MD [address] [place] [address] Endocrinology 05/08/20 Josephine Salomon RN [address] [facility] [place] [address] Specialty Media Relations Director Hematology/Oncology 03/04/22 Grace Bess MD [address] [facility] [place] [address] Physician Hematology/Oncology 03/04/22 Greta Wetzel PA-C [address] [facility] [place] [address] Physician Representative Hematology/Oncology 03/04/22 Life Enrichment Director Relationship Specialty Start Date End Date Giovanni Salinas II [address] [place] [address] PCP - General Internal Medicine 11/29/19 César Leiva MD [address] [place] [address] Endocrinology 05/08/20 Josephine Salomon, LUIS ANTONIO [address] [facility] [place] [address] Specialty Media Relations Director Hematology/Oncology 03/04/22 Grace Bess MD [address] [facility] [place] [address] Physician Hematology/Oncology 03/04/22 Greta Wetzel PA-C [address] [facility] [place] [address] Physician Representative Hematology/Oncology 03/04/22 Life Enrichment Director Relationship Specialty Start Date End Date Giovanni Salinas II [address] [place] [address] PCP - General Internal Medicine 11/29/19 César Leiva MD [address] [place] [address] Endocrinology 05/08/20 Josephine Salomon RN [address] [facility] [place] [address] Specialty Media Relations Director Hematology/Oncology 03/04/22 Grace Bess MD [address] [facility] [place] [address] Physician Hematology/Oncology 03/04/22 Greta Wetzel PA-C [address] [place] [address] [place] [address] Physician Representative Hematology/Oncology 03/04/22 Life Enrichment Director Relationship Specialty Start Date End Date Giovanni Salinas II [address] [address] PCP - General Internal Medicine 11/29/19 César Leiva MD [address] [place] [address] Endocrinology 05/08/20 Josephine Salomon RN [address] [facility] [place] [address] Specialty Media Relations Director Hematology/Oncology 03/04/22 Grace Bess MD [address] [facility] [place] [address] Physician Hematology/Oncology 03/04/22 Greta Wetzel PA-C [address] [place] [address] [place] [address] Physician Representative Hematology/Oncology 03/04/22 Life Enrichment Director Relationship Specialty Start Date End Date Giovanni Salinas II [address] [place] [address] PCP - General Internal Medicine 11/29/19 César Leiva MD [address] [place] [address] Endocrinology 05/08/20 Josephine Salomon, RN [address] [facility] [place] [address] Specialty Media Relations Director Hematology/Oncology 03/04/22 Grace Bess MD [address] [place] [address] Physician Hematology/Oncology 03/04/22 Greta Wetzel PA-C [address] [facility] [place] [address] Physician Representative Hematology/Oncology 03/04/22 Team Status: Active Member Role Status Dates Giovanni Salinas II MD Primary Care Provider Active Team Status: Inactive Member Role Status Dates Giovanni Salinas II MD Primary Care Provider Active Jemma Padilla APRN Emergency Provider Active Life Enrichment Director Relationship Specialty Start Date End Date Giovanni Salinas II [address] [place] [address] PCP - General Internal Medicine 11/29/19 César Leiva MD [address] [place] [address] Endocrinology 05/08/20 Josephine Salomon, RN [address] [facility] [place] [address] Specialty Media Relations Director Hematology/Oncology 03/04/22 Grace Bess MD [address] [place] [address] Physician Hematology/Oncology 03/04/22 Greta Wetzel PA-C [address] [place] [address] [place] [address] Physician Representative Hematology/Oncology 03/04/22 Life Enrichment Director Relationship Specialty Start Date End Date Giovanni Salinas II [address] [place] [address] PCP - General Internal Medicine 11/29/19 César Leiva MD [address] [place] [address] Endocrinology 05/08/20 Josephine Salomon RN [address] [facility] [place] [address] Specialty Media Relations Director Hematology/Oncology 03/04/22 Grace Bess MD [address] [place] [address] [place] [address] Physician Hematology/Oncology 03/04/22 Greta Wetzel PA-C [address] [place] [address] [place] [address] Physician Representative Hematology/Oncology 03/04/22 Life Enrichment Director Relationship Specialty Start Date End Date Giovanni Salinas II, MD [address] [place] [address] PCP - General Internal Medicine 11/29/19 César Leiva MD [address] [place] [address] Endocrinology 05/08/20 Josephine Salomon RN [address] [facility] [place] [address] Specialty Media Relations Director Hematology/Oncology 03/04/22 Grace Bess MD [address] [facility] [place] [address] Physician Hematology/Oncology 03/04/22 Greta Wetzel PA-C [address] [facility] [place] [address] Physician Representative Hematology/Oncology 03/04/22 Life Enrichment Director Relationship Specialty Start Date End Date Giovanni Salinas II, MD [address] [place] [address] PCP - General Internal Medicine 11/29/19 César Leiva MD [address] [facility] [place] [id number] Endocrinology 05/08/20 Josephine Salomon RN [address] [facility] [place] [address] Specialty Media Relations Director Hematology/Oncology 03/04/22 Grace Bess MD [address] [facility] [place] [address] Physician Hematology/Oncology 03/04/22 Greta Wetzel PA-C [address] [facility] [place] [address] Physician Representative Hematology/Oncology 03/04/22 Life Enrichment Director Relationship Specialty Start Date End Date Giovanni Salinas II, MD [address] [place] [address] PCP - General Internal Medicine 11/29/19 César Leiva MD [address] [place] [address] Endocrinology 05/08/20 Josephine Salomon, RN [address] [facility] [address] [place], [place] [address] Specialty Media Relations Director Hematology/Oncology 03/04/22 Grace Bess MD [address] [place] [address] Physician Hematology/Oncology 03/04/22 Greta Wetzel PA-C [address] [facility] [place] [address] Physician Representative Hematology/Oncology 03/04/22 Life Enrichment Director Relationship Specialty Start Date End Date Giovanni Salinas II, MD [address] [place] [address] PCP - General Internal Medicine 11/29/19 César Leiva MD [address] [place] [address] Endocrinology 05/08/20 Josephine Salomon RN [address] [facility] [place] [address] Specialty Media Relations Director Hematology/Oncology 03/04/22 Grace Bess MD [address] [place] [address] Physician Hematology/Oncology 03/04/22 Greta Wetzel PA-C [address] [facility] [place] [address] Physician Representative Hematology/Oncology 03/04/22 Life Enrichment Director Relationship Specialty Start Date End Date Giovanni Salinas II, MD [address] [place] [address] PCP - General Internal Medicine 11/29/19 César Leiva MD [address] [place] [address] Endocrinology 05/08/20 Josephine Salomon RN [address] [facility] [place] [address] Specialty Media Relations Director Hematology/Oncology 03/04/22 Grace Bess MD 417 [facility] [place] [address] Physician Hematology/Oncology 03/04/22 Greta Wetzel, LEONC [address] [facility] [place] [address] Physician Representative Hematology/Oncology 03/04/22 Life Enrichment Director Relationship Specialty Start Date End Date Giovanni Salinas II, MD [address] [place] [address] PCP - General Internal Medicine 11/29/19 César Leiva MD [address] [place] [address] Endocrinology 05/08/20 Josephine Salomon RN [address] [facility] [place] [address] Specialty Media Relations Director Hematology/Oncology 03/04/22 Grace Bess MD [address] [facility] [place] [address] Physician Hematology/Oncology 03/04/22 Greta Wetzel PA-C [address] [place] [address] [place] [address] Physician Representative Hematology/Oncology 03/04/22 Life Enrichment Director Relationship Specialty Start Date End Date Giovanni Salinas II, MD [address] [place] [address] PCP - General Internal Medicine 11/29/19 César Leiva MD [address] [place] [address] Endocrinology 05/08/20 Josephine Salomon, RN [address] [facility] [place] [address] Specialty Media Relations Director Hematology/Oncology 03/04/22 Grace Bess MD [address] [facility] [place] [address] Physician Hematology/Oncology 03/04/22 Greta Wetzel PA-C [address] [place] [address] [place] [address] Physician Representative Hematology/Oncology 03/04/22 Life Enrichment Director Relationship Specialty Start Date End Date Giovanni Salinas II, MD [address] [place] [address] PCP - General Internal Medicine 11/29/19 César Leiva MD [address] [place] [address] Endocrinology 05/08/20 Josephine Salomon RN [address] [facility] [place] [address] Specialty Media Relations Director Hematology/Oncology 03/04/22 Grace Bess MD [address] [facility] [place] [address] Physician Hematology/Oncology 03/04/22 Greta Wetzel PA-C [address] [place] [address] [place] [address] Physician Representative Hematology/Oncology 03/04/22 Life Enrichment Director Relationship Specialty Start Date End Date Giovanni Salinas II, MD [facility] [address] PCP - General Internal Medicine 11/29/19 César Leiva MD [address] [place] [address] Endocrinology 05/08/20 Josephine Salomon RN [address] [facility] [place] [address] Specialty Media Relations Director Hematology/Oncology 03/04/22 Grace Bess MD 417 [facility] [place] [address] Physician Hematology/Oncology 03/04/22 Greta Wetzel PA-C [address] [facility] [place] [address] Physician Representative Hematology/Oncology 03/04/22 Life Enrichment Director Relationship Specialty Start Date End Date Giovanni Salinas II, MD [address] [place] [address] PCP - General Internal Medicine 11/29/19 César Leiva MD [address] [place] [address] Endocrinology 05/08/20 Josephine Salomon, RN [address] [facility] [address] [place], [place] [address] Specialty Media Relations Director Hematology/Oncology 03/04/22 Grace Bess MD [address] [place] [address] Physician Hematology/Oncology 03/04/22 Greta Wetzel PA-C [address] [facility] [place] [address] Physician Representative Hematology/Oncology 03/04/22 Life Enrichment Director Relationship Specialty Start Date End Date Giovanni Salinas II, MD [address] [place] [address] PCP - General Internal Medicine 11/29/19 César Leiva MD [address] [place] [address] Endocrinology 05/08/20 Josephine Salomon, RN [address] [facility] [place] [address] Specialty Media Relations Director Hematology/Oncology 03/04/22 Grace Bess MD [address] [facility] [address] Physician Hematology/Oncology 03/04/22 Greta Wetzel PA-C [address] [facility] [place] [address] Physician Representative Hematology/Oncology 03/04/22 Life Enrichment Director Relationship Specialty Start Date End Date Giovanni Salinas II, MD [address] [place] [address] PCP - General Internal Medicine 11/29/19 César Leiva MD [address] [place] [address] Endocrinology 05/08/20 Josephine Salomon RN [address] [facility] [place] [address] Specialty Media Relations Director Hematology/Oncology 03/04/22 Grace Bess MD [address] [place] [place] [address] Physician Hematology/Oncology 03/04/22 Greta Wetzel PA-C [address] [facility] [place] [address] Physician Representative Hematology/Oncology 03/04/22 Life Enrichment Director Relationship Specialty Start Date End Date Giovanni Salinas II, MD [address] [place] [address] PCP - General Internal Medicine 11/29/19 César Leiva MD [address] [place] [address] Endocrinology 05/08/20 Josephine Salomon RN [address] [place] [address] Specialty Media Relations Director Hematology/Oncology 03/04/22 Grace Bess MD [address] [place] [address] Physician Hematology/Oncology 03/04/22 Greta Wetzel PA-C [address] [place] [address] [place] [address] Physician Representative Hematology/Oncology 03/04/22 Life Enrichment Director Relationship Specialty Start Date End Date Giovanni Salinas II, MD [address] [place] [address] PCP - General Internal Medicine 11/29/19 César Leiva MD [address] [place] [address] [address] [place] [address] Endocrinology 05/08/20 Josephine Salomon, RN [address] [place] [address] [place] [address] Specialty Media Relations Director Hematology/Oncology 03/04/22 Grace Bess MD [address] [place] [address] Physician Hematology/Oncology 03/04/22 Greta Wetzel PA-C [address] [place] [address] [place] [address] Physician Representative Hematology/Oncology 03/04/22 Life Enrichment Director Relationship Specialty Start Date End Date Giovanni Salinas II, MD [address] [place] [address] PCP - General Internal Medicine 11/29/19 César Leiva MD [address] [place] [address] Endocrinology 05/08/20 Josephine Salomon RN 417 [facility] [place] [address] Specialty Media Relations Director Hematology/Oncology 03/04/22 Grace Bess MD 417 [facility] [place] [address] Physician Hematology/Oncology 03/04/22 Greta Wetzel PA-C [address] [place] [address] [place] [address] Physician Representative Hematology/Oncology 03/04/22 Life Enrichment Director Relationship Specialty Start Date End Date Giovanni Salinas II, MD [address] [facility] [address] [place] [address] PCP - General Internal Medicine 11/29/19 César Leiva MD [address] [place] [address] Endocrinology 05/08/20 Josephine Salomon RN [address] [facility] [place] [address] Specialty Media Relations Director Hematology/Oncology 03/04/22 Grace Bess MD 417 [facility] [place] [address] Physician Hematology/Oncology 03/04/22 Greta Wetzel PA-C [address] [place] [address] [place] [address] Physician Representative Hematology/Oncology 03/04/22 Life Enrichment Director Relationship Specialty Start Date End Date Giovanni Salinas II, MD [address] [place] [address] PCP - General Internal Medicine 11/29/19 César Leiva MD [address] [place] [address] Endocrinology 05/08/20 Josephine Salomon, LUIS ANTONIO [address] [facility] [place] [address] Specialty Media Relations Director Hematology/Oncology 03/04/22 Grace Bess MD [address] [place] [address] Physician Hematology/Oncology 03/04/22 Greta Wetzel PA-C [address] [facility] [place] [address] Physician Representative Hematology/Oncology 03/04/22 Life Enrichment Director Relationship Specialty Start Date End Date Giovanni Salinas II, MD [address] [place] [address] PCP - General Internal Medicine 11/29/19 César Leiva MD [address] [place] [address] Endocrinology 05/08/20 Josephine Salomon, RN [address] [facility] [place] [address] Specialty Media Relations Director Hematology/Oncology 03/04/22 Grace Bess MD [address] [facility] [address] Physician Hematology/Oncology 03/04/22 Greta Wetzel PA-C [address] [place] [address] [place] [address] Physician Representative Hematology/Oncology 03/04/22 Life Enrichment Director Relationship Specialty Start Date End Date Giovanni Salinas II, MD [address] [facility] [facility] [address] [place] [address] PCP - General Internal Medicine 11/29/19 Cés[place] [address] [place] [address] [address] [place] [address] Endocrinology 05/08/20 Josephine Salomon RN [address] [facility] [place] [address] Specialty Media Relations Director Hematology/Oncology 03/04/22 Grace Bess MD [address] [place] [address] [place] [address] Physician Hematology/Oncology 03/04/22 Greta Wetzel PA-C [address] [place] [address] [place] [address] Physician Representative Hematology/Oncology 03/04/[address] [facility] [place] [address] Registered Dietitian Nutrition 06/07/23 Life Enrichment Director Relationship Specialty Start Date End Date Giovanni Salinas II, MD [address] [place] [address] PCP - General Internal Medicine 11/29/19 César Leiva MD [address] [place] [address] Endocrinology 05/08/20 Josephine Salomon, RN [address] [facility] [place] [address] Specialty Media Relations Director Hematology/Oncology 03/04/22 Grace Bess MD 417 [facility] [place] [address] Physician Hematology/Oncology 03/04/22 Greta Weztel PA-C [address] [place] [address] [place] [address] Physician Representative Hematology/Oncology 03/04/[address] [facility] [place] [address] Registered Dietitian Nutrition 06/07/23 Life Enrichment Director Relationship Specialty Start Date End Date Giovanni Salinas II, MD [address] [facility] [address] [place] [address] PCP - General Internal Medicine 11/29/19 César Leiva MD [address] [place] [address] Endocrinology 05/08/20 Josephine Salomon, RN [address] [facility] [place] [address] Specialty Media Relations Director Hematology/Oncology 03/04/22 Grace Bess MD 417 [facility] [place] [address] Physician Hematology/Oncology 03/04/22 Greta Wetzel PA-C [address] [facility] [place] [address] Physician Representative Hematology/Oncology 03/04/[address] [facility] [place] [address] Registered Dietitian Nutrition 06/07/23 Life Enrichment Director Relationship Specialty Start Date End Date Giovanni Salinas II, MD [address] [place] [address] PCP - General Internal Medicine 11/29/19 César Leiva MD [address] [facility] [address] [place] [address] Endocrinology 05/08/20 Josephine Salomon RN 417 [facility] [place] [address] Specialty Media Relations Director Hematology/Oncology 03/04/22 Grace Bess MD 417 [facility] [place] [address] Physician Hematology/Oncology 03/04/22 Greta Wetzel PA-C [address] [facility] [place] [address] Physician Representative Hematology/Oncology 03/04/[address] [facility] [place] [address] Registered Dietitian Nutrition 06/07/23 Life Enrichment Director Relationship Specialty Start Date End Date Giovanni Salinas MD [address] [place] [address] PCP - ACO Reach 10/13/22 Giovanni Salinas MD 112 [facility] [address] [place] [address] PCP - General Internal Medicine 10/20/22 Life Enrichment Director Relationship Specialty Start Date End Date Giovanni Salinas II, MD [address] [place] [address] PCP - General Internal Medicine 11/29/19 César Leiva MD [address] [place] [address] Endocrinology 05/08/20 Josephine Salomon RN [address] [facility] [place] [address] Specialty Media Relations Director Hematology/Oncology 03/04/22 Grace Bess MD [address] [place] [address] [place] [id number] Physician Hematology/Oncology 03/04/22 Greta Wetzel PA-C [address] [place] [address] [place] [address] Physician Representative Hematology/Oncology 03/04/[address] [place] [address] [place] [address] Registered Dietitian Nutrition 06/07/23 Life Enrichment Director Relationship Specialty Start Date End Date Giovanni Salinas II, MD [address] [place] [address] PCP - General Internal Medicine 11/29/19 César Leiva MD [address] [place] [address] Endocrinology 05/08/20 Josephine Salomon RN [address] [facility] [place] [address] Specialty Media Relations Director Hematology/Oncology 03/04/22 Grace Bess MD 417 [facility] [place] [address] Physician Hematology/Oncology 03/04/22 Greta Wetzel PA-C [address] [place] [address] [place] [address] Physician Representative Hematology/Oncology 03/04/[address] [facility] [place] [address] Registered Dietitian Nutrition 06/07/23 Life Enrichment Director Relationship Specialty Start Date End Date Giovanni Salinas II, MD [address] [facility] [address] [place] [address] PCP - General Internal Medicine 11/29/19 César Leiva MD [address]19 [facility] [address] [place] [address] Endocrinology 05/08/20 Josephine Salomon RN [address] [facility] [place] [address] Specialty Media Relations Director Hematology/Oncology 03/04/22 Grace Bess MD 417 [facility] [place] [address] Physician Hematology/Oncology 03/04/22 Greta Wetzel PA-C [address] [facility] [place] [address] Physician Representative Hematology/Oncology 03/04/[address] [facility] [place] [address] Registered Dietitian Nutrition 06/07/23 Life Enrichment Director Relationship Specialty Start Date End Date Giovanni Salinas II, MD [address] [place] [address] PCP - General Internal Medicine 11/29/19 César Leiva MD [address] [place] [address] Endocrinology 05/08/20 Josephine Salomon, RN [address] [facility] [place] [address] Specialty Media Relations Director Hematology/Oncology 03/04/22 Grace Bess MD [address] [place] [address] [place] [address] Physician Hematology/Oncology 03/04/22 Greta Wetzel PA-C [address] [place] [address] [place] [address] Physician Representative Hematology/Oncology 03/04/[address] [place] [address] [place] [address] Registered Dietitian Nutrition 06/07/23 Life Enrichment Director Relationship Specialty Start Date End Date Giovanni Salinas II, MD [address] [place] [address] PCP - General Internal Medicine 11/29/19 César Leiva MD [address] [place] [address] Endocrinology 05/08/20 Josephine Salomon RN [address] [facility] [place] [address] Specialty Media Relations Director Hematology/Oncology 03/04/22 Grace Bess MD 417 [facility] [place] [address] Physician Hematology/Oncology 03/04/22 Greta Wetzel PA-C [address] [place] [address] [place] [address] Physician Representative Hematology/Oncology 03/04/[address] [place] [address] [place] [address] Registered Dietitian Nutrition 06/07/23 Life Enrichment Director Relationship Specialty Start Date End Date Giovanni Salinas II, MD [address] [facility] [address] [place] [address] PCP - General Internal Medicine 11/29/19 César Leiva MD [facility] [address] [address] [place] [address] Endocrinology 05/08/20 Josephine Salomon RN [address] [facility] [place] [address] Specialty Media Relations Director Hematology/Oncology 03/04/22 Grace Bess MD 417 [facility] [place] [address] Physician Hematology/Oncology 03/04/22 Greta Wetzel PA-C [address] [place] [address] [place] [address] Physician Representative Hematology/Oncology 03/04/[address] [facility] [place] [address] Registered Dietitian Nutrition 06/07/23 Life Enrichment Director Relationship Specialty Start Date End Date Giovanni Salinas II, MD [address] [place] [address] PCP - General Internal Medicine 11/29/19 César Leiva MD [address] [place] [address] Endocrinology 05/08/20 Josephine Salomon RN [address] [facility] [place] [address] Specialty Media Relations Director Hematology/Oncology 03/04/22 Grace Bess MD [address] [place] [address] [place] [address] Physician Hematology/Oncology 03/04/22 Greta Wetzel, ALEX [address] [facility] [place] [address] Physician Representative Hematology/Oncology 03/04/[address] [facility] [place] [address] Registered Dietitian Nutrition 06/07/23 Life Enrichment Director Relationship Specialty Start Date End Date Giovanni Salinas II, MD [address] [place] [address] PCP - General Internal Medicine 11/29/19 César Leiva MD [address] [place] [address] Endocrinology 05/08/20 Josephine Salomon RN [address] [facility] [place] [address] Specialty Media Relations Director Hematology/Oncology 03/04/22 Grace Bess MD [address] [facility] [place] [address] Physician Hematology/Oncology 03/04/22 Greta Wetzel PA-C [address] [place] [address] [place] [address] Physician Representative Hematology/Oncology 03/04/[address] [place] [address] [place] [address] Registered Dietitian Nutrition 06/07/23 Life Enrichment Director Relationship Specialty Start Date End Date Giovanni Salinas II, MD [address] [facility] [address] [place] [address] PCP - General Internal Medicine 11/29/19 César Leiva MD [address] [place] [address] Endocrinology 05/08/20 Josephine Salomon RN [address] [facility] [place] [address] Specialty Media Relations Director Hematology/Oncology 03/04/22 Grace Bess MD [address] [facility] [place], [place] [address] Physician Hematology/Oncology 03/04/22 Greta Wetzel PA-C [address] [place] [address] [place] [address] Physician Representative Hematology/Oncology 03/04/[address] [facility] [place] [address] Registered Dietitian Nutrition 06/07/23 Life Enrichment Director Relationship Specialty Start Date End Date Giovanni Salinas II, MD [address] [facility] [address] [place] [address] PCP - General Internal Medicine 11/29/19 César Leiva MD [address]19 [facility] [address] [place] [address] Endocrinology 05/08/20 Josephine Salomon RN [address] [facility] [address] [place] [id number] Specialty Media Relations Director Hematology/Oncology 03/04/22 Grace Bess MD [address] [place] [address] [place] [address] Physician Hematology/Oncology 03/04/22 Greta Wetzel PA-C [address] [place] [address] [place] [address] Physician Representative Hematology/Oncology 03/04/[address] [facility] [place] [address] Registered Dietitian Nutrition 06/07/23 Life Enrichment Director Relationship Specialty Start Date End Date Giovanni Salinas II, MD [address] [place] [address] PCP - General Internal Medicine 11/29/19 César Leiva MD [address] [place] [id number] Endocrinology 05/08/20 Josephine Salomon RN [address] [facility] [place] [address] Specialty Media Relations Director Hematology/Oncology 03/04/22 Grace Bess MD [address] [place] [address] [place] [address] Physician Hematology/Oncology 03/04/22 Greta Wetzel PA-C [address] [place] [address] [place] [address] Physician Representative Hematology/Oncology 03/04/[address] [place] [address] [place] [address] Registered Dietitian Nutrition 06/07/23 Life Enrichment Director Relationship Specialty Start Date End Date Giovanni Salinas II, MD [address] [address] PCP - General Internal Medicine 11/29/19 César Leiva MD [address] [place] [address] Endocrinology 05/08/20 Josephine Salomon RN [address] [facility] [place] [address] Specialty Media Relations Director Hematology/Oncology 03/04/22 Grace Bess MD [address] [place] [address] [place] [address] Physician Hematology/Oncology 03/04/22 Greta Wetzel PA-C [address] [place] [address] [place] [address] Physician Representative Hematology/Oncology 03/04/[address] [place] [address] [place] [address] Registered Dietitian Nutrition 06/07/23 Life Enrichment Director Relationship Specialty Start Date End Date Giovanni Salinas II, MD [address] [place] [address] PCP - General Internal Medicine 11/29/19 Cés[place] [address] [place] [address] [address] [place] [address] Endocrinology 05/08/20 Josephine Salomon, RN [address] [facility] [address] [place], [facility] Specialty Media Relations Director Hematology/Oncology 03/04/22 Grace Bess MD [address] [place] [address] [place] [address] Physician Hematology/Oncology 03/04/22 Greta Wetzel, LEONC [address] [place] [address] [place] [address] Physician Representative Hematology/Oncology 03/04/[address] [facility] [place] [address] Registered Dietitian Nutrition 06/07/23 Life Enrichment Director Relationship Specialty Start Date End Date Giovanni Salinas II, MD [address] [place] [address] PCP - General Internal Medicine 11/29/19 César Leiva MD [address] [place] [address] Endocrinology 05/08/20 Josephine Salomon, RN [address] [facility] [place] [address] Specialty Media Relations Director Hematology/Oncology 03/04/22 Grace Bess MD [address] [place] [address] [place] [address] Physician Hematology/Oncology 03/04/22 Greta Wetzel PA-C [address] [place] [address] [place] [address] Physician Representative Hematology/Oncology 03/04/[address] [place] [address] [place] [address] Registered Dietitian Nutrition 06/07/23 Life Enrichment Director Relationship Specialty Start Date End Date Giovanni Salinas II, MD [address] [address] PCP - General Internal Medicine 11/29/19 César Leiva MD [address] [place] [address] Endocrinology 05/08/20 Josephine Salomon, RN [address] [facility] [place] [address] Specialty Media Relations Director Hematology/Oncology 03/04/22 Grace Bess MD [address] [place] [address] [place] [address] Physician Hematology/Oncology 03/04/22 Greta Wetzel PA-C [address] [place] [address] [place] [address] Physician Representative Hematology/Oncology 03/04/[address] [place] [address] [place] [address] Registered Dietitian Nutrition 06/07/23 Life Enrichment Director Relationship Specialty Start Date End Date Giovanni Salinas II, MD [address] [facility] [address] [place] [address] PCP - General Internal Medicine 11/29/19 [place] [address] [place] [address] [address] [place] [address] Endocrinology 05/08/20 Josephine Salomon RN [address] [facility] [place] [address] Specialty Media Relations Director Hematology/Oncology 03/04/22 Grace Bess MD [address] [place] [address] [place] [address] Physician Hematology/Oncology 03/04/22 Greta Wetzel PA-C [address] [place] [address] [place] [address] Physician Representative Hematology/Oncology 03/04/[address] [facility] [place] [address] Registered Dietitian Nutrition 06/07/23 Life Enrichment Director Relationship Specialty Start Date End Date Giovanni Salinas II, MD [address] [place] [address] PCP - General Internal Medicine 11/29/19 César Leiva MD [address] [place] [address] Endocrinology 05/08/20 Josephine Salomon, RN [address] [facility] [place] [address] Specialty Media Relations Director Hematology/Oncology 03/04/22 Grace Bess MD [address] [place] [address] [place] [address] Physician Hematology/Oncology 03/04/22 Greta Wetzel PA-C [address] [place] [address] [place] [address] Physician Representative Hematology/Oncology 03/04/[address] [place] [address] [place] [address] Registered Dietitian Nutrition 06/07/23 Life Enrichment Director Relationship Specialty Start Date End Date Giovanni Salinas II, MD [address] [facility] [address] [place] [address] PCP - General Internal Medicine 11/29/19 César Leiva MD [address] [place] [address] Endocrinology 05/08/20 Josephine Salomon, RN [address] [facility] [place] [address] Specialty Media Relations Director Hematology/Oncology 03/04/22 Grace Bess MD [address] [place] [address] [place] [address] Physician Hematology/Oncology 03/04/22 Greta Wetzel PA-C [address] [facility] [address] [address] Physician Representative Hematology/Oncology 03/04/[address] [address] Registered Dietitian Nutrition 06/07/23 Life Enrichment Director Relationship Specialty Start Date End Date Giovanni Salinas II, MD [address] [place] [address] PCP - General Internal Medicine 11/29/19 César Leiva MD [address] [facility] [address] [place] [address] Endocrinology 05/08/20 Josephine Salomon, RN [address] [facility] [address] [place] [address] Specialty Media Relations Director Hematology/Oncology 03/04/22 Grace Bess MD [address] [facility] [place] [address] Physician Hematology/Oncology 03/04/22 Greta Wetzel PA-C [address] [place] [address] [place] [address] Physician Representative Hematology/Oncology 03/04/[address] [facility] [place] [address] Registered Dietitian Nutrition 06/07/23 Life Enrichment Director Relationship Specialty Start Date End Date Giovanni Salinas II, MD [address] [place] [address] PCP - General Internal Medicine 11/29/19 César Leiva MD [address] [place] [address] Endocrinology 05/08/20 Josephine Salomon, LUIS ANTONIO [address] [facility] [place] [address] Specialty Media Relations Director Hematology/Oncology 03/04/22 Greta Wetzel PA-C [address] [place] [address] [place] [address] Physician Representative Hematology/Oncology 03/04/[address] [place] [address] [place] [address] Registered Dietitian Nutrition 06/07/23 Vivek Smith MD [address] [place] [address] [place] [address] Physician Hematology 12/11/23 Life Enrichment Director Relationship Specialty Start Date End Date Giovanni Salinas II, MD [address] [facility] [address] [place] [address] PCP - General Internal Medicine 11/29/19 César Leiva MD [address] [place] [address] Endocrinology 05/08/20 Josephine Salomon, LUIS ANTONIO [address] [facility] [place] [address] Specialty Media Relations Director Hematology/Oncology 03/04/22 Greta Wetzel PA-C [address] [place] [address] [place] [address] Physician Representative Hematology/Oncology 03/04/[address] [facility] [place] [address] Registered Dietitian Nutrition 06/07/23 Vivek Smith MD [address] [place] [address] [place] [address] Physician Hematology 12/11/23 Life Enrichment Director Relationship Specialty Start Date End Date Giovanni Salinas II, MD [address] [place] [address] PCP - General Internal Medicine 11/29/19 César Leiva MD [address] [place] [address] [address] [place] [address] Endocrinology 05/08/20 Josephine Salomon, RN [address] [facility] [place] [address] Specialty Media Relations Director Hematology/Oncology 03/04/22 Greta Wetzel, PA-C [address] [place] [address] [place] [address] Physician Representative Hematology/Oncology 03/04/[address] [facility] [place] [address] Registered Dietitian Nutrition 06/07/23 Vivek Smith MD [address] [facility] [place] [address] Physician Hematology 12/11/23 Life Enrichment Director Relationship Specialty Start Date End Date Giovanni Salinas II, MD [address] [place] [address] PCP - General Internal Medicine 11/29/19 César Leiva MD [address] [place] [address] Endocrinology 05/08/20 Josephine Salomon RN [address] [facility] [place] [address] Specialty Media Relations Director Hematology/Oncology 03/04/22 Greta Wetzel PA-C [address] [place] [address] [place] [address] Physician Representative Hematology/Oncology 03/04/[address] [place] [address] [place] [address] Registered Dietitian Nutrition 06/07/23 Vivek Smith MD [address] [place] [address] [place] [address] Physician Hematology 12/11/23 Life Enrichment Director Relationship Specialty Start Date End Date Giovanni Salinas II, MD [address] [facility] [address] [place] [address] PCP - General Internal Medicine 11/29/19 César Leiva MD [address] [place] [address] Endocrinology 05/08/20 Josephine Salomon RN [address] [facility] [place] [address] Specialty Media Relations Director Hematology/Oncology 03/04/22 Greta Wetzel PA-C [address] [place] [address] [place] [address] Physician Representative Hematology/Oncology 03/04/[address] [facility] [place] [address] Registered Dietitian Nutrition 06/07/23 Vivek Smith MD [address] [place] [address] [place] [address] Physician Hematology 12/11/23 Life Enrichment Director Relationship Specialty Start Date End Date Giovanni Salinas II, MD [address] [place] [address] PCP - General Internal Medicine 11/29/19 César Leiva MD [facility] [address] [place] [address] Endocrinology 05/08/20 Josephine Salomon RN [address] [facility] [place] [address] Specialty Media Relations Director Hematology/Oncology 03/04/22 Greta Wetzel PALaurenC [address] [place] [address] [place] [address] Physician Representative Hematology/Oncology 03/04/[address] [facility] [place] [address] Registered Dietitian Nutrition 06/07/23 Vivek Smith MD [address] [facility] [place] [address] Physician Hematology 12/11/23 Life Enrichment Director Relationship Specialty Start Date End Date Giovanni Salinas II, MD [address] [place] [address] PCP - General Internal Medicine 11/29/19 César Leiva MD [address] [place] [address] Endocrinology 05/08/20 Josephine Salomon, RN [address] [facility] [place] [address] Specialty Media Relations Director Hematology/Oncology 03/04/22 Greta Wetzel PA-C [address] [place] [address] [place] [address] Physician Representative Hematology/Oncology 03/04/[address] [place] [address] [place] [address] Registered Dietitian Nutrition 06/07/23 Vivek Smith MD [address] [place] [address] [place] [address] Physician Hematology 12/11/23 Life Enrichment Director Relationship Specialty Start Date End Date Giovanni Salinas II, MD [address] [address] PCP - General Internal Medicine 11/29/19 César Leiva MD [address] [place] [address] Endocrinology 05/08/20 Josephine Salomon, RN [address] [facility] [place] [address] Specialty Media Relations Director Hematology/Oncology 03/04/22 Greta Wetzel PA-C [address] [place] [address] [place] [address] Physician Representative Hematology/Oncology 03/04/[address] [facility] [place] [address] Registered Dietitian Nutrition 06/07/23 Vivek Smith MD [address] [place] [address] [place] [address] Physician Hematology 12/11/23 Life Enrichment Director Relationship Specialty Start Date End Date Giovanni Salinas II, MD [address] [place] [address] PCP - General Internal Medicine 11/29/19 César Leiva MD [address] [place] [address] [address] [place] [address] Endocrinology 05/08/20 Josephine Salomon RN [address] [facility] [place] [address] Specialty Media Relations Director Hematology/Oncology 03/04/22 Greta Wetzel PALaurenC [address] [place] [address] [place] [address] Physician Representative Hematology/Oncology 03/04/[address] [facility] [place] [address] Registered Dietitian Nutrition 06/07/23 Vivek Smith MD [address] [facility] [place] [address] Physician Hematology 12/11/23 Life Enrichment Director Relationship Specialty Start Date End Date Giovanni Salinas II, MD [address] [place] [address] PCP - General Internal Medicine 11/29/19 César Leiva MD [address] [place] [address] Endocrinology 05/08/20 Josephine Salomon, RN [address] [facility] [place] [address] Specialty Media Relations Director Hematology/Oncology 03/04/22 Greta Wetzel PA-C [address] [facility] [place] [address] Physician Representative Hematology/Oncology 03/04/[address] [facility] [place] [address] Registered Dietitian Nutrition 06/07/23 Vivek Smith MD [address] [facility] [place] [address] Physician Hematology 12/11/23 Life Enrichment Director Relationship Specialty Start Date End Date Giovanni Salinas II, MD [address] [facility] [address] [place] [address] PCP - General Internal Medicine 11/29/19 César Leiva MD [address] [place] [address] Endocrinology 05/08/20 Josephine Salomon, LUIS ANTONIO [address] [facility] [place] [address] Specialty Media Relations Director Hematology/Oncology 03/04/22 Greta Wetzel PA-C [address] [facility] [place] [address] Physician Representative Hematology/Oncology 03/04/[address] [facility] [address] Registered Dietitian Nutrition 06/07/23 Vivek Smith MD [address] [facility] [address] Physician Hematology 12/11/23 Life Enrichment Director Relationship Specialty Start Date End Date Giovanni Salinas II, MD [address] [place] [address] PCP - General Internal Medicine 11/29/19 César Leiva MD [address] [facility] [address] [address] [place] [address] Endocrinology 05/08/20 Josephine Salomon RN [address] [facility] [place] [address] Specialty Media Relations Director Hematology/Oncology 03/04/22 Greta Wetzel PALaurenC [address] [facility] [address] Physician Representative Hematology/Oncology 03/04/[address] [facility] [address] Registered Dietitian Nutrition 06/07/23 Vivek Smith MD [address] [facility] [place] [address] Physician Hematology 12/11/23 Life Enrichment Director Relationship Specialty Start Date End Date Giovanni Salinas II, MD [address] [place] [address] PCP - General Internal Medicine 11/29/19 César Leiva MD [address] [place] [address] Endocrinology 05/08/20 Josephine Salomon, RN [address] [facility] [place] [address] Specialty Media Relations Director Hematology/Oncology 03/04/22 Greta Wetzel PA-C [address] [place] [address] [place] [address] Physician Representative Hematology/Oncology 03/04/[address] [place] [address] [place] [address] Registered Dietitian Nutrition 06/07/23 Vivek Smith MD [address] [place] [address] [place] [address] Physician Hematology 12/11/23 Life Enrichment Director Relationship Specialty Start Date End Date Giovanni Salinas II, MD [address] [facility] [address] [place] [address] PCP - General Internal Medicine 11/29/19 César Leiva MD [address] [place] [address] Endocrinology 05/08/20 Josephine Salomon, RN [address] [facility] [place] [address] Specialty Media Relations Director Hematology/Oncology 03/04/22 Grace Bess MD 417 [facility] [place] [address] Physician Hematology/Oncology 03/04/22 12/10/23 Greta Wetzel PA-C [address] [facility] [place] [address] Physician Representative Hematology/Oncology 03/04/[address] [facility] [place] [address] Registered Dietitian Nutrition 06/07/23 Life Enrichment Director Relationship Specialty Start Date End Date Giovanni Salinas II, MD [address] [facility] [address] [place] [address] PCP - General Internal Medicine 11/29/19 Cés[place] [address] [place] [address] [address] [place] [address] Endocrinology 05/08/20 Josephine Salomon RN [address] [facility] [place] [address] Specialty Media Relations Director Hematology/Oncology 03/04/22 Grace Bess MD [address] [place] [address] [place] [address] Physician Hematology/Oncology 03/04/22 12/10/23 Greta Wetzel PA-C [address] [place] [address] [place] [address] Physician Representative Hematology/Oncology 03/04/[address] [facility] [address] Registered Dietitian Nutrition 06/07/23 Life Enrichment Director Relationship Specialty Start Date End Date Giovanni Salinas II, MD [address] [facility] [address] [place] [address] PCP - General Internal Medicine 11/29/19 César Leiva MD [address] [place] [address] Endocrinology 05/08/20 Josephine Salomon, RN [address] [facility] [place] [address] Specialty Media Relations Director Hematology/Oncology 03/04/22 Grace Bess MD [address] [place] [address] [place] [address] Physician Hematology/Oncology 03/04/22 12/10/23 Greta Wetzel PA-C [address] [place] [address] [place] [address] Physician Representative Hematology/Oncology 03/04/[address] [place] [address] [place] [address] Registered Dietitian Nutrition 06/07/23 Life Enrichment Director Relationship Specialty Start Date End Date Giovanni Salinas II, MD [address] [facility] [address] [place] [address] PCP - General Internal Medicine 11/29/19 César Leiva MD [address] [place] [address] Endocrinology 05/08/20 Josephine Salomon, RN [address] [facility] [address] Specialty Media Relations Director Hematology/Oncology 03/04/22 Grace Bess MD [address] [place] [address] [place] [address] Physician Hematology/Oncology 03/04/22 12/10/23 Greta Wetzel PA-C [address] [facility] [place] [address] Physician Representative Hematology/Oncology 03/04/22 Life Enrichment Director Relationship Specialty Start Date End Date Giovanni Salinas II, MD [address] [facility] [address] [place] [address] PCP - General Internal Medicine 11/29/19 César Leiva MD [address] [place] [address] Endocrinology 05/08/20 Josephine Salomon RN [address] [facility] [place] [address] Specialty Media Relations Director Hematology/Oncology 03/04/22 Grace Bess MD 417 [facility] [place] [address] Physician Hematology/Oncology 03/04/22 12/10/23 Greta Wetzel PA-C [address] [facility] [place] [address] Physician Representative Hematology/Oncology 03/04/22 Life Enrichment Director Relationship Specialty Start Date End Date Giovanni Salinas II, MD [address] [place] [address] PCP - General Internal Medicine 11/29/19 César Leiva MD [address] [place] [address] Endocrinology 05/08/20 Josephine Salomon RN [address] [facility] [address] Specialty Media Relations Director Hematology/Oncology 03/04/22 Grace Bess MD 417 [facility] [place] [address] Physician Hematology/Oncology 03/04/22 12/10/23 Greta Wetzel PA-C [address] [facility] [place] [address] Physician Representative Hematology/Oncology 03/04/22 Life Enrichment Director Relationship Specialty Start Date End Date Giovanni Salinas II, MD [address] [facility] [address] [place] [address] PCP - General Internal Medicine 11/29/19 César Leiva MD [facility] [address] [place] [address] Endocrinology 05/08/20 Josephine Salomon RN [address] [facility] [address] Specialty Media Relations Director Hematology/Oncology 03/04/22 Grace Bess MD [address] [facility] [place] [address] Physician Hematology/Oncology 03/04/22 12/10/23 Greta Wetzel PA-C [address] [facility] [place] [address] Physician Representative Hematology/Oncology 03/04/22 Life Enrichment Director Relationship Specialty Start Date End Date Giovanni Salinas II, MD [address] [place] [address] PCP - General Internal Medicine 11/29/19 César Leiva MD [address] [place] [address] Endocrinology 05/08/20 Josephine Salomon, LUIS ANTONIO [address] [facility] [place] [address] Specialty Media Relations Director Hematology/Oncology 03/04/22 Greta Wetzel PA-C [address] [facility] [place] [address] Physician Representative Hematology/Oncology 03/04/[address] [facility] [place] [address] Registered Dietitian Nutrition 06/07/23 Vivek Smith MD [address] [place] [address] [place] [address] Physician Hematology 12/11/23 Life Enrichment Director Relationship Specialty Start Date End Date Giovanni Salinas II, MD [address] [facility] [address] [place] [address] PCP - General Internal Medicine 11/29/19 César Leiva MD [address] [place] [address] Endocrinology 05/08/20 Josephine Salomon, LUIS ANTONIO [address] [facility] [place] [address] Specialty Media Relations Director Hematology/Oncology 03/04/22 Grace Bess MD [address] [facility] [place] [address] Physician Hematology/Oncology 03/04/22 12/10/23 Greta Wetzel PA-C [address] [place] [address] [place] [address] Physician Representative Hematology/Oncology 03/04/22 Life Enrichment Director Relationship Specialty Start Date End Date Giovanni Salinas II, MD [address] [facility] [address] [place] [address] PCP - General Internal Medicine 11/29/19 César Leiva MD [address] [place] [address] Endocrinology 05/08/20 Life Enrichment Director Relationship Specialty Start Date End Date Giovanni Salinas MD [address] [place] [address] PCP - General Internal Medicine 10/20/22 Giovanni Salinas MD [address] [place] [address] PCP - ACO Reach 09/20/23Monday, JAUN Wilson [address] [place] [address] Licensed Practical Nurse Family Medicine 11/02/23 Life Enrichment Director Relationship Specialty Start Date End Date Giovanni Salinas II, MD [address] [place] [address] PCP - General Internal Medicine 11/29/19 César Leiva MD [address] [place] [address] Endocrinology 05/08/20 Josephine Salomon RN [address] [facility] [address] Specialty Media Relations Director Hematology/Oncology 03/04/22 Greta Wetzel PA-C [address] [facility] [place] [address] Physician Representative Hematology/Oncology 03/04/[address] [place] [address] [place] [address] Registered Dietitian Nutrition 06/07/23 Vivek Smith MD [address] [place] [address] [place], [place] [address] Physician Hematology 12/11/23 Life Enrichment Director Relationship Specialty Start Date End Date Giovanni Salinas II, MD [address] [facility] [address] [place] [address] PCP - General Internal Medicine 11/29/19 César Leiva MD [address] [facility] [address] [place] [address] Endocrinology 05/08/20 Josephine Salomon RN [address] [facility] [address] Specialty Media Relations Director Hematology/Oncology 03/04/22 Greta Wetzel PA-C [address] [facility] [address] Physician Representative Hematology/Oncology 03/04/[address] [place] [address] [place] [address] Registered Dietitian Nutrition 06/07/23 Vivek Smith MD [address] [place] [address] [place] [address] Physician Hematology 12/11/23 Life Enrichment Director Relationship Specialty Start Date End Date Giovanni Salinas II, MD [address] [place] [address] PCP - General Internal Medicine 11/29/19 César Leiva MD [address] [place] [address] Endocrinology 05/08/20 Josephine Salomon, RN [address] [place] [address] [place] [address] Specialty Media Relations Director Hematology/Oncology 03/04/22 Greta Wetzel, PA-C [address] [place] [address] [place] [address] Physician Representative Hematology/Oncology 03/04/[address] [place] [address] [place] [address] Registered Dietitian Nutrition 06/07/23 Vivek Smith MD [address] [place] [address] [place] [address] Physician Hematology 12/11/23 Goals (unrecognized section and [...] BE BASED ON THE PRIMARY CLINICAL RECORDS. [employer] provides no warranty or guarantee of the accuracy or completeness of information in this document.
[2024-03-25] MEDS: 0.9 % SODIUM CHLORIDE 1,000 ML 100 ML IV (01:21)
[2024-03-25 02:55] LABS: Bilirubin Urine NEGATIVE (NEGATIVE); Blood Urine NEGATIVE (NEGATIVE); Clarity Urine CLEAR (CLEAR); Color Urine LT. YELLOW (YELLOW); Glucose Urine UA NEGATIVE (NEGATIVE); Ketones Urine NEGATIVE (NEGATIVE); Leukocyte Esterase Urine NEGATIVE (NEGATIVE); Nitrite Urine NEGATIVE (NEGATIVE); Protein Urine NEGATIVE (NEG/TRACE); Specific Gravity Urine 1.015 (1.005-1.025); Urobilinogen Urine 0.2 EU/dL (0.2-1.0)
[2024-03-25 03:01] LABS: RBC Urine 0-2 #/HPF (0-2); WBC Urine 0-2 #/HPF (NONE SEEN)
[2024-03-25 03:02] LABS: Bacteria Urine NONE SEEN #/HPF (NONE SEEN); Cast Seen? NONE SEEN #/LPF (NONE SEEN); Crystals Seen? None Seen #/HPF (None Seen); Mucus Urine NONE SEEN (NONE SEEN); Squamous Epithelial Cell Urine NONE SEEN #/LPF (NONE/RARE); Urine Culture Indicated NO
[2024-03-25 05:39] LABS: Basophils Percent Auto 0.4 % (0.2-2.0); Hematocrit 31.2 % (42.0-54.0); Hemoglobin 10.2 g/dL (14.0-18.0); Immature Granulocytes Abs Auto 0.03 10^3/uL (0.00-0.03); Immature Granulocytes Pct Auto 0.6 % (0.0-0.5); Lymphocytes Percent Auto 19.1 % (20.5-60.0); Mean Corpuscular HGB Conc 32.7 g/dL (29.9-35.2); Mean Corpuscular Hemoglobin 29.9 pg (25.9-34.0); Mean Corpuscular Volume 91.5 fL (80.0-94.0); Mean Platelet Volume 9.3 fL (9.5-13.5); Monocytes Absolute Auto 1.1 10^3/uL (0.3-0.8); Monocytes Percent Auto 21.1 % (1.7-12.0); Neutrophils Absolute Auto 2.9 10^3/uL (1.4-6.5); Neutrophils Percent Auto 58.8 % (43.0-75.0); Platelet Count 205 10^3/uL (150-450); Red Blood Count 3.41 10^6/uL (4.70-6.10); Red Cell Distribution Width 15.8 % (11.0-15.0)
[2024-03-25 05:54] LABS: Alanine Aminotransferase 33 U/L (16-63); Albumin Globulin Ratio 0.7; Albumin Level 2.4 g/dL (3.4-5.0); Alkaline Phosphatase 126 U/L (46-116); Anion Gap 10.9; Aspartate Amino Transferase 23 U/L (15-37); BUN Creatinine Ratio 14.2; Bilirubin Total 0.8 mg/dL (0.2-1.0); Calcium 9.8 mg/dL (8.5-10.1); Carbon Dioxide 26.2 mmol/L (21.0-32.0); Chloride 102 mmol/L (98-107); Estimated GFR (African America >60 (>=60 mL/min/1.73m^2); Estimated GFR (Non-African Ame >60 (>=60 mL/min/1.73m^2); Globulin 3.3 g/dL; Glucose 166 mg/dL (74-106); Potassium 4.1 mmol/L (3.5-5.1); Sodium 135 mmol/L (136-145); Total Protein 5.7 g/dL (6.4-8.2)
[2024-03-25] MEDS: OMEPRAZOLE 20 MG CAPSULE.DR PO (08:08)
[2024-03-25] MEDS: FINASTERIDE 5 MG TABLET PO (08:08)
[2024-03-25] MEDS: TAMSULOSIN HCL 0.4 MG CAPSULE PO (08:08)
[2024-03-25] MEDS: MIDODRINE HCL 5 MG TABLET 2.5 MG PO ×2 (08:08→11:21)
--- NOTE | 2024-03-25 09:45 | CM.NOTE ---
Rounds made with Dr. Foster. Dr. Foster reviews labs/Radiology findings with Monica. Also reviewed plan of care. No discharge today.
--- NOTE | 2024-03-25 10:40 | PM.HP ---
HPI H&P: HPI History of Present Illness Chief complaint: fever LLL PNEUMONIA HYPONATREMIA Narrative: 73-year-old male who is currently undergoing chemotherapy for pancreatic cancer presented to ER for generalized weakness, anorexia, low p.o. intake and high-grade fever at home for past couple of days. His last chemotherapy was about 2 weeks ago. He denies cough, shortness of breath but feels that he has no energy and reports generalized malaise/weakness and lethargy. In ER, he was noted to have fever of 102.9. Workup in ER revealed left lower lobe pneumonia for which he was admitted as inpatient for treatment of pneumonia given his immunocompromise status and high risk of mortality if not hospitalized. His PSI score is 122 (risk class 4) with about 9% risk of mortality. Patient was started on IV fluids, IV Zosyn for treatment of community-acquired pneumonia. Upon evaluation, he feels a little better but is still quite lethargic and reports generalized weakness and inability to do anything. Physical therapy evaluation ordered for the patient. He is still quite dehydrated despite IV hydration overnight and I ordered a 1 L fluid bolus for him. Opioid HPI Opioid Management Most Recent Pain and Opioid Data: Last Pain Scale 2 03/25/24 10:30 03/25/24 Last Pain Intensity 2 03/25/24 10:30 03/25/24 Last Pain Assessment 03/25/24 10:09 Last ORT Total Score 0 03/25/24 01:13 03/25/24 Last ORT Risk Category Low Risk 03/25/24 01:13 03/25/24 Review of Systems ROS Status of ROS 10 or more systems reviewed and unremarkable except as noted in history and below [facility] Medical History (Updated 03/25/24 @ 10:48 by Shaikh Cristian MD) BPH (benign prostatic hyperplasia) ?N40.0 - Benign prostatic hyperplasia without lower urinary tract symptoms (ICD-10) GERD (gastroesophageal reflux disease) ?K21.9 - Gastro-esophageal reflux disease without esophagitis (ICD-10) Pancreatic cancer ?C25.9 - Malignant neoplasm of pancreas, unspecified (ICD-10) Diabetes ?E11.9 - Type 2 diabetes mellitus without complications (ICD-10) Surgical History (Updated 12/01/23 @ 09:37 by Allie Pat) Port-A-Cath in place ?Z95.828 - Presence of other vascular implants and grafts (ICD-10) 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 Smoking status: Former smoker Non-prescribed substance use: denies use Previous occupational history: Retired, [employer] Highest level of school completed/degree received: high school graduate Are you now , , , , never or living with a partner: In a typical week, how many times do you talk on the telephone with family, friends, or neighbors: 3 or more times per week How often do you get together with friends or relatives: 3 or more times per week Little interest or pleasure in doing things: not at all Feeling down, depressed, or hopeless: not at all Feel stressed/tense/nervous/anxious/difficulty sleeping: not at all Meds Home Medications and Allergies Home Medications ?Medication ?Instructions ?Recorded ?Confirmed ?Type finasteride 5 mg tablet 5 mg PO QAM 10/16/23 12/01/23 History pantoprazole 20 mg tablet,delayed 20 mg PO DAILY 10/16/23 12/01/23 History release tamsulosin 0.4 mg capsule 0.4 mg PO DAILY 10/16/23 12/01/23 History midodrine 2.5 mg tablet 2.5 mg PO TIDWMEAL #90 tabs 10/18/23 12/01/23 Rx cephalexin 500 mg capsule 500 mg PO TID 12/01/23 12/01/23 History Allergies Allergy/AdvReac Type Severity Reaction Status Date / Time No Known Drug Allergies Allergy Verified 03/24/24 22:02 Exam Constitutional Vital Signs, click to edit/add: Last Vital Signs Temp 98.0 F 03/25/24 08:14 Pulse 65 03/25/24 08:14 Resp 16 03/25/24 08:14 BP 118/72 03/25/24 08:14 Pulse Ox 97 03/25/24 08:14 O2 Del Method Room Air 03/25/24 08:14 General appearance: cooperative, comfortable, lethargic, ill appearing and frail appearing Respiratory Common normals: normal respiratory effort Effort & inspection: able to speak in complete sentences and decreased respiratory effort Auscultation: rales on the left Cardio Common normals: regular rate, regular rhythm, S1 normal heart sound and S2 normal heart sound Extremity Common normals: normal to inspection and full ROM Neuro Common normals: oriented x3, moves all extremities, no focal motor deficits and no sensory deficits noted Sensorium/orientation: lethargic Psych Common normals: mental status grossly normal, thought process normal, denies homicidal ideation and denies suicidal ideation Results Labs Labs: Short CBC 03/24/24 03/25/24 Range/Units 22:05 05:28 WBC 6.6 5.0 (4.0-11.0) 10^3/uL Hgb 11.0 L 10.2 L (14.0-18.0) g/dL Hct 33.1 L 31.2 L (42.0-54.0) % Plt Count 236 205 (150-450) 10^3/uL BMP 03/24/24 03/25/24 22:05 05:28 Sodium 129 L 135 L Potassium 4.1 4.1 Chloride 96 L 102 Carbon Dioxide 22.8 26.2 BUN 19.0 H 15.0 Creatinine 1.13 1.06 Glucose 180 H 166 H Calcium 10.2 H 9.8 Liver Function 03/24/24 03/25/24 Range/Units 22:05 05:28 Total Bilirubin 0.9 0.8 (0.2-1.0) mg/dL AST 24 23 (15-37) U/L ALT 34 33 (16-63) U/L Alkaline Phosphatase 149 H 126 H (46-116) U/L Albumin 2.7 L 2.4 L (3.4-5.0) g/dL Urine 03/25/24 Range/Units 02:50 Urine Color Lt. yellow (YELLOW) Urine Clarity Clear (CLEAR) Urine pH 6.0 (5.0-9.0) Ur Specific [place] 1.015 (1.005-1.025) Urine Protein Negative (NEG/TRACE) mg/dL Urine Glucose (UA) Negative (NEGATIVE) mg/dL Assessment and Plan Assessment and Plan (1) LLL pneumonia: Assessment and Plan: LLL PNA on CXR. Immunocompromised due to chemotherapy. On IV zosyn. F/u cultures. C/w IVF. PSI - risk class IV - hyponatremia, male gender, age, neoplastic disease - total score is 122 Qualifiers: Pneumonia type: due to unspecified organism Qualified Code(s): J18.9 - Pneumonia, unspecified organism (2) Hyponatremia: Assessment and Plan: improving with IV hydration. C/w same. Due to dehydration (3) Generalized weakness: Assessment and Plan: PT eval. Due to chemo/PNA. (4) Immunosuppressed due to chemotherapy: Assessment and Plan: At high risk of resistent organism, that's why he is on IV zosyn. (5) Pancreatic cancer: Assessment and Plan: s/p Whipple in 2020. On chemoc, last dose 2 weeks ago. Qualifiers: Pancreatic malignancy location: unspecified Qualified Code(s): C25.9 - Malignant neoplasm of pancreas, unspecified (6) GERD (gastroesophageal reflux disease): Assessment and Plan: C/w omeprazole. Qualifiers: Esophagitis presence: without esophagitis Qualified Code(s): K21.9 - Gastro-esophageal reflux disease without esophagitis Plan C/w IV abx, IVF. Has poor PO intake, clinically dry. Still quite lethargic and reporting generalized weakness. PT eval ordered. Patient is at high risk of mortality, if not treated appropriately and will need continued inpatient stay for close monitoring and IV abx.
[2024-03-25] MEDS: 0.9 % SODIUM CHLORIDE 1,000 ML 1000 ML IV (11:21)
[2024-03-25] MEDS: LACTATED RINGER'S SOLUTION 1,000 ML 125 ML IV ×2 (11:23→20:54)
--- NOTE | 2024-03-25 13:16 | SWNOTE1 ---
SW attempted to see pt, but he was sleeping, SW to check back later.
--- NOTE | 2024-03-25 14:50 | SWNOTE1 ---
SW met with pt to discuss dc needs. Pt lives at home with his . Pt does not usually use any DME at home. Pt does not have any HH coming in at this time. Pt has no anticipated discharge needs at this time. SW to follow as needed.
--- NOTE | 2024-03-25 14:51 | SWNOTE1 ---
Important Message from Medicare reviewed and discussed with patient. Pt. verbalized understanding and signed the form. Original given to patient and copy placed in patient?s chart.
--- NOTE | 2024-03-25 15:21 | SWNOTE1 ---
correction to previous note. Important Message from Medicare reviewed and discussed with patient. Pt. verbalized understanding and he requested SW sign the form on behalf of patient. SW signed form that it was reviewed and no further questions. Original given to patient and copy placed in patient?s chart.
[2024-03-25 16:35] LABS: Glucometer 169 mg/dL (74-106)
[2024-03-26] MEDS: PIPERACILLIN SODIUM/TAZOBACTAM 3.375 GM in 0.9 % SODIUM CHLORIDE 50 ML IV ×2 (01:12→08:10)
[2024-03-26 03:49] VITALS: BP 125/73; PULSE 56; TEMP 36.5; O2SAT 96
[2024-03-26] MEDS: LACTATED RINGER'S SOLUTION 1,000 ML 125 ML IV (04:10)
[2024-03-26 07:01] LABS: Basophils Percent Auto 0.2 % (0.2-2.0); Hematocrit 30.1 % (42.0-54.0); Hemoglobin 9.9 g/dL (14.0-18.0); Immature Granulocytes Abs Auto 0.01 10^3/uL (0.00-0.03); Immature Granulocytes Pct Auto 0.2 % (0.0-0.5); Lymphocytes Absolute Auto 1.3 10^3/uL (1.2-3.8); Lymphocytes Percent Auto 31.2 % (20.5-60.0); Mean Corpuscular HGB Conc 32.9 g/dL (29.9-35.2); Mean Corpuscular Hemoglobin 30.1 pg (25.9-34.0); Mean Corpuscular Volume 91.5 fL (80.0-94.0); Mean Platelet Volume 9.5 fL (9.5-13.5); Monocytes Absolute Auto 0.9 10^3/uL (0.3-0.8); Monocytes Percent Auto 22.2 % (1.7-12.0); Neutrophils Absolute Auto 1.9 10^3/uL (1.4-6.5); Neutrophils Percent Auto 45.2 % (43.0-75.0); Platelet Count 198 10^3/uL (150-450); Red Blood Count 3.29 10^6/uL (4.70-6.10); Red Cell Distribution Width 15.7 % (11.0-15.0); White Blood Count 4.1 10^3/uL (4.0-11.0)
[2024-03-26 07:22] LABS: Alanine Aminotransferase 25 U/L (16-63); Albumin Globulin Ratio 0.6; Albumin Level 2.1 g/dL (3.4-5.0); Alkaline Phosphatase 107 U/L (46-116); Anion Gap 10.6; Aspartate Amino Transferase 17 U/L (15-37); BUN Creatinine Ratio 11.4; Bilirubin Total 0.7 mg/dL (0.2-1.0); Calcium 9.6 mg/dL (8.5-10.1); Carbon Dioxide 25.3 mmol/L (21.0-32.0); Chloride 105 mmol/L (98-107); Estimated GFR (African America >60 (>=60 mL/min/1.73m^2); Estimated GFR (Non-African Ame >60 (>=60 mL/min/1.73m^2); Globulin 3.3 g/dL; Glucose 155 mg/dL (74-106); Potassium 3.9 mmol/L (3.5-5.1); Sodium 137 mmol/L (136-145); Total Protein 5.4 g/dL (6.4-8.2)
[2024-03-26 08:00] VITALS: BP 134/74; PULSE 53; TEMP 36.9; O2SAT 94
[2024-03-26] MEDS: MIDODRINE HCL 5 MG TABLET 2.5 MG PO (08:09)
[2024-03-26] MEDS: ACETAMINOPHEN 325 MG TABLET 650 MG PO (08:09)
[2024-03-26] MEDS: FINASTERIDE 5 MG TABLET PO (08:09)
[2024-03-26] MEDS: ENOXAPARIN SODIUM 40 MG/0.4 ML SYRINGE SUBQ (08:09)
[2024-03-26] MEDS: TAMSULOSIN HCL 0.4 MG CAPSULE PO (08:10)
[2024-03-26] MEDS: OMEPRAZOLE 20 MG CAPSULE.DR PO (08:10)
--- NOTE | 2024-03-26 10:22 | CM.NOTE ---
Rounds made with Dr. Foster, discussed with pt discharge to home today and outpatient PT for strengthening. Pt refuses any HH services or outpatient PT, pt states I am capable to do my own strengthening. Dr. Foster talked with pt about contacting PCP if he would change his mind for PT. Pt will f/u with PCP.
--- NOTE | 2024-03-26 10:51 | P.DS_ITS ---
DS: Providers Provider Date of admission: 03/25/24 00:50 Primary care physician: CRUZITO SPRINGER Admitting clinician: Shaikh Cristian Attending physician on admission: Shaikh Cristian Consults: 03/25/24 09:00 Occupational Therapy Eval and Treat Routine Reason for consultation: weakness Has provider been notified: No Physical Therapy Eval and Treat Routine Reason for consultation: Weakness Has provider been notified: No 03/25/24 10:41 Physical Therapy Eval and Treat Routine Reason for consultation: generalized weakness Attending physician on discharge: Shaikh Cristian Discharging clinician: Shaikh Cristian Anticipated date of discharge: 03/26/24 DS: Diagnosis Discharge Diagnosis (1) LLL pneumonia: Qualifiers: Pneumonia type: due to unspecified organism Qualified Code(s): J18.9 - Pneumonia, unspecified organism (2) Hyponatremia: (3) Generalized weakness: (4) Immunosuppressed due to chemotherapy: (5) Pancreatic cancer: Qualifiers: Pancreatic malignancy location: unspecified Qualified Code(s): C25.9 - Malignant neoplasm of pancreas, unspecified (6) GERD (gastroesophageal reflux disease): Qualifiers: Esophagitis presence: without esophagitis Qualified Code(s): K21.9 - Gastro-esophageal reflux disease without esophagitis DS: Summary Hospital Course Hospital Course: 73-year-old male presented to ER for generalized weakness, anorexia, low p.o. intake and high-grade fever at home for past couple of days. He felt that he has no energy and reported generalized malaise/weakness and lethargy. In ER, he was febrile with temp of 102.9. His work up revealed left lower lobe pneumonia for which he was admitted as inpatient for treatment of pneumonia given his immunocompromise status and risk of infection due to resistant organisms. Patient was started on IV fluids, IV Zosyn for treatment of community-acquired pneumonia. He clinically improved during the course of admission. Upon evaluation today, it is felt that he is medically stable for discharge. He will be discharged on oral Levaquin. He will need to f/u with PCP in one week. Status at Discharge Functional status at discharge: independent ambulation Overall status at discharge: patient is back to baseline Time Spent with Patient Time attestation: Total time spent providing and/or coordinating discharge services: Time spent: greater than 30 minutes Exam Constitutional Vital Signs, click to edit/add: Last Vital Signs Temp 98.4 F 03/26/24 08:00 Pulse 53 L 03/26/24 08:00 Resp 16 03/26/24 08:00 BP 134/74 03/26/24 08:00 Pulse Ox 94 L 03/26/24 08:00 O2 Del Method Room Air 03/26/24 08:00 General appearance: cooperative and comfortable Respiratory Common normals: normal respiratory effort Effort & inspection: able to speak in complete sentences and decreased respiratory effort Auscultation: rales on the left Cardio Common normals: regular rate, regular rhythm, S1 normal heart sound and S2 normal heart sound Extremity Common normals: normal to inspection and full ROM Neuro Common normals: oriented x3, moves all extremities, no focal motor deficits and no sensory deficits noted Sensorium/orientation: lethargic Psych Common normals: mental status grossly normal, thought process normal, denies homicidal ideation and denies suicidal ideation DS: Data Data Completed and Pending Labs on day of discharge: Labs from last 24 hours 03/26/24 03/25/24 06:32 16:34 WBC 4.1 RBC 3.29 L Hgb 9.9 L Hct 30.1 L MCV 91.5 MCH 30.1 MCHC 32.9 RDW 15.7 H Plt Count 198 MPV 9.5 Neut % (Auto) 45.2 Lymph % (Auto) 31.2 [place] % (Auto) 22.2 H Eos % (Auto) 1.0 Baso % (Auto) 0.2 Neut # (Auto) 1.9 Lymph # (Auto) 1.3 [place] # (Auto) 0.9 H Eos # (Auto) 0.0 Baso # (Auto) 0.0 Abs Immat Gran (auto) 0.01 Imm/Tot Granulo (auto) 0.2 Sodium 137 Potassium 3.9 Chloride 105 Carbon Dioxide 25.3 Anion Gap 10.6 BUN 10.0 Creatinine 0.88 Est GFR ( Amer) >60 Est GFR (Non-Af Amer) >60 BUN/Creatinine Ratio 11.4 Glucose 155 H Calcium 9.6 Total Bilirubin 0.7 AST 17 ALT 25 Alkaline Phosphatase 107 Total Protein 5.4 L Albumin 2.1 L Globulin 3.3 Albumin/Globulin Ratio 0.6 POC Glucose 169 H Discharge Plan Discharge Disposition: Home, Self-Care Discharge Medications: New levofloxacin 750 mg tablet 750 mg PO DAILY 7 Days Qty: 7 0RF Continued finasteride 5 mg tablet 5 mg PO QAM pantoprazole 20 mg tablet,delayed release (DR/EC) 20 mg PO DAILY tamsulosin 0.4 mg capsule 0.4 mg PO DAILY midodrine 2.5 mg tablet 2.5 mg PO TIDWMEAL Qty: 90 0RF Rx Instructions: do not give last dose of day after 6PM or within 4 hrs of bedtime Discontinued cephalexin 500 mg capsule 500 mg PO TID Rx Instructions: x 2 more days Activity: increase activity as tolerated Diet: advance to your usual diet Print Language: British Forms: Portal Instructions Follow Up Appointments: Dr Brad welch office Mar @2:30 phone [phone]
--- NOTE | 2024-03-26 11:41 | REH.PTDLY ---
Physical Therapy Daily Note PT Daily Note/Assess Start: 03/25/24 10:30 Freq: Status: Active Protocol: Document 03/26/24 10:45 ARNIE (Rec: 03/26/24 11:41 ARNIE [id number]) Physical Therapy Daily Note/Assessment Time In 10:25 Time Out 10:45 Pain Level 0 Pain Level 0 Subjective Pt states he is leaving to go home today, feeling better. Just tired. Therapeutic Exercise Minutes (minutes) 5 Therapeutic Exercise Units 0 Therapeutic Exercise Treatment Instructed in seated B LE exs 10-15xx LAQ, marching, hip abd for improved strength. Therapeutic Activity Minutes (minutes) 14 Therapeutic Activity Units 1 Therapeutic Activity Comments Ind with supine to sit transfers. Sit to stand transfers bedside 5x in a row with hands in lap. Gait training with no AD SBA with therapist pushing IV pole 200 feet. Pt has mild sway 1x when ambulating around obstacles in hallway with no assistance needed to recover. Pt does have AD at home if needed. States everything is pretty close at his house and is able to grab onto things usually. Encouraged use of AD on days where he may be feeling weak or unsteady. Pt ind with toilet transfers. Stands at sink to wash hands, face, and brush teeth with good standing balance noted, no LOB or sway . Pt ambulates back to bed and returns to supine Ind. Total Therapy Minutes 19 Total Physical Therapy Units 1 Daily Note Summary Pt has improved gait distance and standing endurance compared to previous date, is fatigued after therapy rx though. Pt has AD at home if needed, but does well today other than 1 instance of mild sway ambulating around obstacle with pt able to recover on his own. Overall pt feeling better today, plan is to be DC to home.
--- NOTE | 2024-03-28 13:40 | CM.DCFOLLOWU ---
03/28- 1st attempt. No answer
== END 2024-03-26 12:41 | disposition home or self-care (01) | DRG 194 ==
LOC: ER 03-25 00:31 → MS 03-25 00:54
PROVIDERS: Registered Nurse; Admitting Provider Internal Medicine; Emergency Provider Emergency Medicine; PCP Internal Medicine; Visit Provider Internal Medicine
DX: J18.9 Pneumonia, unspecified organism (principal); C25.9 Malignant neoplasm of pancreas, unspecified; E87.1 Hypo-osmolality and hyponatremia; D84.821 Immunodeficiency due to drugs; T45.1X5A Adverse effect of antineoplastic and immunosuppressive drugs, initial encounter; E11.9 Type 2 diabetes mellitus without complications; K21.9 Gastro-esophageal reflux disease without esophagitis; N40.0 Benign prostatic hyperplasia without lower urinary tract symptoms; Z95.828 Presence of other vascular implants and grafts; Z90.49 Acquired absence of other specified parts of digestive tract; Z90.411 Acquired partial absence of pancreas; Z87.891 Personal history of nicotine dependence; Z79.2 Long term (current) use of antibiotics; Z79.899 Other long term (current) drug therapy
CPT/HCPCS: 36415; 71045; 80053; 81001; 82948; 83605; 84484; 85007; 85025; 85027; 87040; 87804; 87811; 93005; 94667; 94668; 96361; 96365; 97161; 97165; 97530; 97535; 99285; J1650; J2543

== ENCOUNTER 2024-04-10 20:10 | Emergency (ER) | payer MEDICARE, SELFPAY ==
[2024-04-10 20:13] VITALS: BP 143/83; PULSE 77; TEMP 36.6; O2SAT 100; BMI 25.1
[2024-04-10 20:17] VITALS: O2SAT 100
[2024-04-10 20:19] VITALS: BP 143/83
[2024-04-10 20:20] VITALS: O2SAT 100
--- OUTSIDE RECORDS SUMMARY | 2024-04-10 20:21 | XMS_ITS | CCD ---
Author Organization [facility] Care Team Providers Care Chicken Handler Name Role Phone Giovanni Salinas Primary Care Provider [phone] FARA MONACO Referring Unavailable GIOVANNI SALINAS Primary [...] Unavailable Giovanni Salinas II Primary Care Provider CaliMehreenailyn Firas Unavailable Mehreen Leivamamaribel Firas Unavailable Giovanni Salinas II Primary Care Provider Cali, Mehreenailyn Firas Unavailable Aime SALMON, Josephine Mi Unavailable Grace Bess MD Unavailable Greta Wetzel PA-C Unavailable Zayda ENCARNACION Consulting Unavailable FARA MONACO Attending Unavailable FARA MONACO Admitting Unavailable GIOVANNI SALINAS II Primary Care Unavailable Giovanni Salinas II Primary Care Provider Mehreen Leivamad Firas Unavailable Aime SALMON, Josephine Mi Unavailable Grace Bess MD Unavailable [phone] Greta Wetzel PA-C Unavailable César Leiva MD Unavailable [phone] MARIO Salinas Primary Care Provider DANIKA Padilla Emergency Provider Brad MARTIN MD, Daniel B Primary Care Provider Josephine Salomon RN Unavailable [phone] Unavailable Giovanni Salinas MD Unavailable [phone] Giovanni Salinas MD Primary Care Provider Brad MARTIN MD, Daniel B Primary Care Provider Jemma Padilla Attending Unavailable Jemma Padilla Admitting Unavailable Giovanni Salinas Primary Care Unavailable Luis GODWIN, Vivek Jordan Unavailable [phone] KARUPPASAMY, KARUNAKARAVEL Admitting Unava ilable KARUPPASAMY, KARUNAKARAVEL Attending Unava ilable SALINAS II, GIOVANNI B Primary Care Unavailable Grace Bess MD Unavailable [phone] Giovanni Salinas MD Unavailable Monday ZOOKEEPERKatie Unavailable GIOVANNI SALINAS Attending Unavailable GIOVANNI SALINAS Attending Unavailable GIOVANNI SALINAS B Attending Unavailable SALINAS II, GIOVANNI B Primary [...] Primary Care Unavailable KARAMLOU, GRAEC Referring Unavailable KARAMLOU, GRACE Attending Unavailable SALINAS II, GIOVANNI B Primary Care Unavailable GRETA WETZEL Referring Unavailable SALIANS II, GIOVANNI B Primary Care Unavailable KARAMLOU, [...] GRACE Referring Unavailable GRETA WETZEL Attending Unavailable SALNIAS II, GIOVANNI B Primary Care Unavailable KARAMLOU, GRACE Referring Unavailable SALINAS II, GIOVANNI B Primary Care Unavailable SALINAS II, GIOVANNI B Primary Care Unavailable RASHARD GRETA M Referring Unavailable SALINAS II, GIOVANNI [...] Primary Care Unavailable GRETA WETZEL Referring Unavailable KARAMLOU, GRACE Referring Unavailable SALINAS [...] BUCHANAN Attending Unavailabl e SALINAS II, GIOVANNI Carter Primary Care Unavailable GRETA WETZEL Referring Unavailable [...] Primary Care Unavailable GRETA WETZEL Referring Unavailable Medications Current Medications Medication Drug [...] 100 tablet 0 03/18/2020 04/17/2020 Active amylases 64919 unt / endopeptidases 96608 unt / lipase 6000 unt delayed release [...] 0 10/13/2023 10/20/2023 Active Continuous Blood Gluc Mold Shifter (Dexcom G7 Mold Shifter) device (3 sources) Start: 04-17-2023 End: 04-16-2024 Continuous Blood Gluc Mold Shifter (Dexcom G7 Mold Shifter) device Indications: Type 2 diabetes mellitus without complication, without long-term current use of insulin ([facility]) 1 Device yearly. 1 each 04/17/2023 04/16/2024 Active Start: 04-17-2023 End: 04-16-2024 Continuous Blood Gluc Receiv er (Dexcom G7 Mold Shifter) device Indications: Type 2 diabetes mellitus without complication, without long-term current use of insulin ([facility]) 1 Device yearly. 1 each 0 04/17/2023 04/16/2024 Active Continuous Blood Gluc Sensor (Dexcom G7 Sensor) misc (1 source) Start: 04-17-2023 End: 04-16-2024 Continuous Blood Gluc Sensor (Dexcom G7 Sensor) misc Indications: Type 2 diabetes mellitus without complication, without long-term current use of insulin ([facility]) 1 Application Every 10 (ten) days. 3 each 11 04/17/2023 04/16/2024 Active Continuous Blood Gluc Transmit (Dexcom G6 transmitter) misc (1 source) Start: 11-14-2022 Continuous Blo od Gluc Transmit (Dexcom G6 transmitter) misc Indications: Diabetes mellitus due to underlying condition with diabetic polyneuropathy, without long-term current use of insulin ([facility]) Use as instructed 1 each 0 11/14/2022 Active Continuous Glucose Mold Shifter (FreeStyle Flaco 3 [place]) device (5 sources) Start: 10-26-2023 End: 10-25-2024 Continuous Glucose Mold Shifter (FreeStyle Flaco 3 [place]) device Indications: Type 2 diabetes mellitus without complication, without long-term current use of insulin ([facility]) 1 Device yearly 1 each 10/26/2023 10/25/2024 Active Continuous Glucose Sensor (FreeStyle Flaco 3 Plus Sensor) misc (5 sources) Start: 02-23-2024 End: 05-23-2024 Continuous Glucose Sensor (FreeStyle Flaco 3 Plus Sensor) misc Indications: Diabetes mellitus due to underlying condition with diabetic polyneuropathy, without long-term current use of insulin ([facility]) 1 Units See administration instructions 1 sensor every 15 days. 6 each 3 02/23/2024 05/23/2024 Active finasteride 5 mg oral tablet (20 sources) 5-alpha Reductase Inhibitor Start: 12-10-2020 take 1 tablet by mouth in the morning finasteride (Proscar) 5 MG tablet Indications: Benign prostatic hyperplasia without lower urinary tract symptoms TAKE 1 TABLET BY MOUTH IN THE MORNING 90 tablet 3 01/29/2024 Active Comment on above: Take 5 mg by mouth o nce daily. FREESTYLE FLACO 3 READER misc (20 sources) Start: 11-12-2023 FREESTYLE LIBR E 3 READER misc 11/12/2023 Active Start: 11-12-2023 FREESTYLE LIBR E 3 READER misc USE DIRECTED to check BLOOD SUGAR 11/12/2023 Active Start: 11-12-2023 FREESTYLE LIBR E 3 READER misc USE DIRECTED to check BLOOD SUGAR 0 11/12/2023 Active FREESTYLE FLACO 3 SENSOR dev i (20 sources) Start: 12-13-2023 FREESTYLE LIBR E 3 SENSOR marsha 12/13/2023 Active Start: 12-13-2023 FREESTYLE LIBR E [...] insulin aspart, human 100 unt/ml pen injector (3 sources) Insulin Analog Start: 11-25-2022 NovoLOG FLEXPE [...] Inject 300 mL subcutaneously once daily. At night-ONLY IF NEEDED Active insulin glargine (LANTUS) 100 UNIT/ML injection vial Inject 12 Units into the skin nightly 0 Active Comment on above: Inject 300 mL subcut aneously once daily. At night 3 ml insulin isophane, human 70 unt/ml / insulin, regular, human 30 unt/ml pen injector (20 sources) Insulin Start: 11-17-2022 NOVOLIN 70-30 FLEXPEN U-100 100 unit/mL (70-30) pen ONLY NEEDED 11/17/2022 Active Start: 11-17-2022 End: 11-17-2023 inject 25 [IU] by subcutaneous injection in the morning NOVOLIN 70-30 FLEXPEN U-100 100 unit/mL (70-30) pen INJECT 25 UNITS SUBCUTANEOUSLY IN THE MORNING then INJECT 25 UNITS SUBCUTANEOUSLY IN THE EVENING before a meal 11/17/2022 Active Comment on above: INJECT 25 UNITS SUBC UTANEOUSLY IN THE MORNING then INJECT 25 UNITS SUBCUTANEOUSLY IN THE EVENING before a meal meloxicam 7.5 mg oral tablet (7 sources) Nonsteroidal Anti-inflammatory Drug Start: End: take 1 tablet by mouth in the [...] 1 tablet by memo th once daily. ondansetron 8 mg oral tablet (20 sources) [...] 1 tablet by mouth once daily pantoprazole (ProtoNix) 20 MG EC tablet Indications: Pancreatic adenocarcinoma (CMS/HCC) TAKE 1 TABLET BY MOUTH ONCE DAILY 90 tablet 3 08/07/2023 Active Comment on above: Take 1 tablet [...] Comment on above: Take 1 tablet by [facility] 6 hours as needed. tamsulosin hydrochloride 0.4 mg oral capsule (20 sources) alpha-Adrenergic Quinn Start: 022 take 1 capsule by mouth once daily tamsulosin (Flomax) 0.4 MG 24 hr capsule Indications: Acute urinary retention Take 1 capsule (0.4 mg) by mouth Daily 100 capsule 03/15/2024 Active Start: 02-12-2022 take 1 capsule by mo [facility] every twenty-four hours in the morning [...] by Patient) take 2 tablets by mo [facility] every six hours as needed for pain acetaminophen (TYLENOL) 325 MG tablet Ta ke 650 mg by mouth every 6 hours as needed for Pain 0 Active Comment on above: Take 2 tablets by mo [facility] every 6 hours as needed for Pain for up to 30 doses. azithromycin 250 mg oral tablet (10 sources) Macrolide Antimicrobial Start: 03-30-20 End: 05-05-20 23 take 2 tablets by mouth once daily, [...] 11/20/2023 Discontinued take 1000 [IU] by mo ut once daily cholecalciferol, vitamin D3, (VITAMIN D3 ORAL) Take 1,000 Units by mouth once daily. 0 Active cholecalciferol, vitamin D3, (VITAMIN D3 ORAL) Take by mouth once daily. 0 Active Comment on above: Take by mouth once d aily. Take 1,000 Units by mouth once daily. codeine phosphate 2 mg/ml / guaiFENesin 20 mg/ml oral solution (5 sources) Opioid Agonist Start: 05-01-20 23 End: 06-07-19 24 take 5 mL by mouth every six hours as needed for cough codeine-guaiFENesin (ROBITUSSIN AC) 10-100 mg/5 mL syrup TAKE 5ml BY MOUTH EVERY 6 HOURS NEEDED FOR COUGH 05/01/2023 06/07/2023 Discontinued (Course of therapy completed) Comment on above: TAKE 5ml BY MOUTH EV MARQUEZ 6 HOURS NEEDED FOR COUGH 1 ml dexamethasone phosphate 10 mg/ml injection (2 sources) Corticosteroid Start: 04-02-20 24 End: 04-02-20 10 mg, INTRAVENOUS, ONCE, 1 dose, On Mon04/02/24 at 1100, Administer over 5 minutes. Start: 03-05-2024 End: [...] Comment on above: Take 1 tablet by mouth daily at bedtime. enteric contrast (will be provided with radiology test) (11 sources) Start: 04-04-2024 End: 04-05-2024 enteric contrast (will be provided with radiology test) Indications: Malignant neoplasm of head of pancreas (HCC) For CT CHESTABD/PEL W IVCON Routine order Administer, As Directed One Time Only, via Oral, Rectal, both Oral and Rectal, Enteric Tube, Stoma or Indwelling Catheter, Enteric Contrast as designated per enteric contrast guidelines 1 Each 04/04/2024 04/05/2024 Start: 10-31-2023 End: 11-01-2023 enteric contrast (will be pr ovided with [...] Contrast as designated per enteric contrast guidelines fluorouracil (ADRUCIL) 4,368 mg in NaCl 0.9% 102 mL in empty bag (2 sources) Start: 11-20-2023 End: 11-20-2023 fluorouracil (ADRUCIL) 4,368 mg in NaCl 0.9% 102 mL in empty bag Start: 10-31-2023 End: 10-31-2023 fluorouracil (ADRUCIL) 4,368 mg in NaCl 0.9% 102 mL in empty bag fluorouracil (ADRUCIL) 4,464 mg in NaCl 0.9% 102 mL in empty bag (6 sources) Start: 04-02-2024 End: 04-02-2024 4,464 mg (2,400 mg/m2 1.86 m 2 Treatment Plan BSA from Recorded weight), INTRAVENOUS, at 2.2 mL/hr, Administer over 46 Hours, ONCE, 1 dose, On Mon04/02/24 at 1100, EXP: 04/09/2024 1040 RT Hazardous Chemotherapy Drug: Use appropriate PPE. Protect from Light. Start: 03-05-2024 End: 03-05-2024 4,464 mg (2,400 [...] over 46 Hours, ONCE, 1 dose, On Mon02/12/24 at 0930, EXP: 02/19/2024 0940 RT Hazardous Chemotherapy Drug: Use appropriate PPE. Protect from Light. Start: 01-23-2024 End: 01-23-2024 4,464 mg (2,400 mg/m2 1.86 m 2 Treatment Plan BSA from Recorded weight), INTRAVENOUS, at 2.2 mL/hr, Administer over 46 Hours, ONCE, 1 dose, On Mon01/23/24 at 1030, EXP: 01/26/24 @ 1600 RT [...] days. hyoscyamine sulfate 0.125 mg sublingual tablet (10 sources) Start: 04-02-2024 End: 04-02-2024 take 0.25 mg under the tongue once 0.25 mg, SUBLINGUAL, ONCE, 1 dose, On Mon04/02/24 at 1100, Give 30 minutes prior to chemotherapy. Start: 03-05-2024 End: 03-05-2024 take 0.25 mg [...] 129 mg in NaCl 0.9% 570 mL (8 sources) Start: 04-02-2024 End: 04-02-2024 129 mg (rounded from 130.2 m g = 70 mg/m2 1.86 m2 Treatment Plan BSA from Recorded weight), INTRAVENOUS, Administer over 90 Minutes, ONCE, 1 dose, On Mon04/02/24 at 1100, EXP: 04/02/2024 1440 RT Hazardous Chemotherapy Drug: Use appropriate PPE. Protect from Light. Start: 03-05-2024 End: 03-05-2024 129 mg (rounded [...] over 90 Minutes, ONCE, 1 dose, On 02/12/24 at 0930, Approx Total Volume: mL EXP: 02/12/2024 1340 RT Hazardous Chemotherapy Drug: Use appropriate PPE. Protect from Light. Start: 01-23-2024 End: 01-23-2024 129 mg (rounded from 130.2 m g = 70 mg/m2 1.86 m2 Treatment Plan BSA from Recorded weight), INTRAVENOUS, Administer over 90 Minutes, ONCE, 1 dose, On 01/23/24 at 1030, Approx Total Volume: mL EXP: [...] 129 mg in NaCl 0.9% 570 mL iv contrast (will be provide d with radiology test) (20 sources) Start: 04-04-2024 End: 04-05-2024 iv contrast (will be provide d with radiology test) Indications: Malignant neoplasm of head of pancreas (HCC) CT Chest ABD/PEL-Inject, intravenously, once for 1 dose.No IV access, [...] CT contrast administration guidelines link. 1 Each 04/04/2024 04/05/2024 Start: 10-31-2023 End: 11-01-2023 iv contrast (will [...] in the CT contrast administration guidelines link. leucovorin 728 mg in NaCl 0.9% 94.4 mL (2 sources) Start: 11-20-2023 End: 11-20-2023 leucovorin 728 mg in NaCl 0.9% 94.4 mL Start: 10-31-2023 End: 10-31-2023 leucovorin [...] over 30 Minutes, ONCE, 1 dose, On Tu01/23/24 at 1030, APPROXIMATE TOTAL VOLUME ml - [...] 95.8 mL levoFLOXacin 500 mg oral tablet (12 sources) Quinolone Antimicrobial Start: 10-03-2023 End: 04-02-2024 take 1 tablet by mouth once daily levoFLOXacin (Levaquin) 500 MG tablet Take 500 mg by mouth Daily 10/03/2023 04/02/2024 Start: 04-27-2023 End: 06-07-2023 take 1 tablet by mouth once daily in the morning levoFLOXacin (LEVAQUIN) 500 mg tablet Take 500 mg by mouth every morning. 04/27/2023 06/07/2023 Discontinued (Course of therapy completed) Comment on above: Take 500 mg by mouth every morning. midodrine hydrochloride 2.5 mg oral tablet (20 sources) alpha-Adrenergic Agonist Start: 10-27-2023 End: 10-26-2024 midodrine (PROAMATINE) 2.5 mg tablet Take 2.5 mg by mouth. 10/27/2023 04/02/2024 Discontinued (Discontinued by Patient) multivit-min/ferrous fumarate (MULTI VITAMIN ORAL) (20 sources) [...] aily. 5 ml palonosetron 0.05 mg/ml injection (10 sources) Serotonin-3 Receptor Antagonist Start: 04-02-2024 End: 04-02-2024 0.25 mg, INTRAVENOUS, ONCE, 1 dose, On Mon04/02/24 at 1100, Flush IV line with NS prior to and following administration. Start: 03-05-2024 End: 03-05-2024 0.25 mg, INTRAVENOUS, [...] ml sodium chloride 9 mg/ml prefilled syringe (2 sources) Start: 04-04-2024 End: 04-04-2024 10-20 mL, INTRAVENOUS, NEEDED, Starting on Elisha 04/04/24 at 1037, Until Elisha 04/04/24 at 1454, See Administration Instructions, If no IVAD access, may place IV if needed for labs or possible treatment. Flush 10-20ml on IV start and as needed. D5W or LR may be used in place of NS for medication that are incompatible (i.e. with oxaliplatin). Start: 01-25-2024 End: 01-25-2024 10-20 mL, INTRAVENOUS, NE EDED, Starting on Elisha 01/25/24 at 1131, Until [...] e to test BLOOD SUGAR TWICE DAILY 10/26/2022 [...] Chronic Complication of device; implant or graft (5 sources) Complication of intravascular line; 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: [Unspecified [...] 06-07-2023 Chronic Diseases of white blood cells (7 sources) Leukocytosis; 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: [Elevated white blood cell count, unspecified] Onset: 10-25-2022 12-10-2020 Chronic E Codes: Fall (1 source) Fall; 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: [Unspecified fall, initial encounter] 12-15-2022 Episodic Essential hypertension (6 sources) Benign essential hypertension; 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: [Essential (primary) hypertension] Onset: 10-27-2009 10-25-2022 Chronic Fluid and electrolyte disorders (1 source) Acute hyponatremia; 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: [Hypo-osmolality and hyponatremia] 12-10-2020 Episodic Gastroduodenal ulcer (except hemorrhage) (6 sources) Ulcer of duodenum; 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: [Duodenal ulcer, unspecified as acute or chronic, without hemorrhage or perforation] Onset: 10-25-2022 10-25-2022 Chronic Hyperplasia of prostate (12 sources) Benign prostatic hyperplasia; 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: [Benign prostatic hyperplasia without lower urinary tract symptoms] Onset: 10-27-2009 10-25-2022 Chronic Immunity disorders (5 sources) Immunosuppression; 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: [Immunodeficiency, unspecified] Onset: 04-01-2024 04-01-2024 Chronic Nonspecific chest pain (1 source) Chest pain; 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: [Chest pain, unspecified] 12-21-2022 Episodic Nutritional deficiencies (20 sources) Deficiency of macronutrients; 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: [Unspecified severe protein-calorie malnutrition] Onset: 12-05-2019 03-23-2020 Chronic Other aftercare (4 sources) Encounter for therapeutic drug level monitoring; 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: [ENC THERAPEUTC DRUG LEVL MONITORING] Onset: 05-25-2021 Episodic Other aftercare (1 source) terminal gauger (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; 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: [SPACE SCHEDULER CURRNT USE ANTICOAGULANTS] Onset: 06-23-2021 Episodic Other [...] cough] 10-03-2023 Episodic Other nervous system disorders (6 sources) Disorder of muscle; 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: [Myopathy, unspecified] Onset: 06-06-2023 06-06-2023 Chronic Other nervous system disorders (14 sources) Neuropathy; 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: [Polyneuropathy, unspecified] Onset: 10-25-2022 10-25-2022 Chronic Pancreatic disorders (not diabetes) (1 source) Chronic pancreatitis; 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: [Other chronic pancreatitis] 02-15-2022 Chronic Peripheral and visceral atherosclerosis (5 sources) Atherosclerosis of aorta; 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: [Atherosclerosis of aorta] Onset: 10-27-2023 10-27-2023 Chronic Pneumonia (except that caused by tuberculosis or sexually transmitted disease) (2 sources) Left lower zone pneumonia; 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: [Pneumonia, unspecified organism] 04-01-2024 Episodic Residual codes; unclassified (20 sources) Obstructive sleep apnea syndrome; 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: [Obstructive sleep apnea (adult) (pediatric)] Onset: 10-27-2009 03-09-2020 Chronic Residual codes; unclassified (1 source) Acquired total absence of pancreas; 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] Onset: 02-05-2021 Chronic Residual codes; unclassified (6 sources) Dependence on wheelchair; 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: [Dependence on wheelchair] Onset: 10-25-2022 10-25-2022 Chronic Secondary malignancies (5 sources) Secondary malignant neoplasm of intra-abdominal lymph nodes; 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: [Secondary and unspecified malignant neoplasm of intra-abdominal lymph nodes] Onset: 10-27-2023 10-27-2023 Chronic Skin and subcutaneous tissue infections (2 sources) Cutaneous abscess, unspecified; 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: [Cellulitis] Onset: 02-05-2021 11-02-2023 Episodic Substance-related disorders (6 sources) Tobacco dependence syndrome; 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: [Nicotine dependence, [...] 12-04-2019 03-09-2020 Episodic Diabetes mellitus without complication (20 sources) Type 2 diabetes mellitus without complications; 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: [Type 2 diabetes mellitus without complication] Onset: 03-04-2021 Resolved: 10-27-2023 Chronic Diabetes mellitus without complication (6 sources) Abnormal glucose tolerance test; 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: [Other abnormal glucose] Onset: 10-27-2009 Resolved: 10-27-2023 10-25-2022 Episodic Genitourinary symptoms and ill-defined conditions (20 sources) Acute retention of urine ; 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: [Other retention of urine] Onset: 12-26-2020 12-26-2020 Episodic Noninfectious gastroenteritis (20 sources) Colitis; 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: [Noninfective gastroenteritis and colitis, unspecified] Onset: 12-03-2020 12-04-2020 Episodic Nutritional deficiencies (8 sources) Deficiency of macronutrients; 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: [Nutritional deficiency, [...] sources) Long-term current use of anticoagulant; 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: [terminal gauger (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] Onset: 04-07-2020 12-04-2020 Episodic Other aftercare (20 sources) Long-term current use of insulin; 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: [long-term (current) use of insulin] Onset: 05-08-2020 05-08-2020 Episodic Other circulatory disease (5 sources) Orthostatic hypotension; 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: [Orthostatic hypotension] Onset: 10-27-2023 10-27-2023 Episodic Other disorders of stomach and duodenum (20 sources) Pyloric obstruction; 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: [Adult hypertrophic pyloric stenosis] Onset: 11-20-2019 03-09-2020 Episodic Other disorders of stomach and duodenum (1 source) Adult hypertrophic pyloric stenosis; 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: [ADULT HYPERTROPHIC PYLORIC STENOSIS] Onset: 03-12-2021 Episodic Other gastrointestinal disorders (6 sources) Constipation; 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: [Constipation, unspecified] Onset: 10-25-2022 [...] procedure] Onset: 02-05-2021 Episodic Residual codes; unclassified (6 sources) Edema; 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: [Edema, unspecified] Onset: 10-27-2009 [...] Test Name Value Interpretation Reference Range Facility [facility] 04-04-2024 CNPN Normal [facility] CBC W Auto Differential pane l (Bld)on 04-02-2024 Basophils (Bld) [#/Vol] 0.04 10*3/uL [facility] Basophils/100 WBC (Bld) 0.5 % [facility] Differential cell count method Nom (Bld) Auto [facility] Eosinophils (Bld) [#/Vol] 0.04 10*3/uL [facility] Eosinophils/100 WBC (Bld) 0.5 % [facility] Erythrocyte distribution width (RBC) [Ratio] 16.5 % High 11.5 - 15.0 % [facility] Hematocrit (Bld) [Volume fraction] 34.1 % Low 39.0 - 51.0 % [facility] Hemoglobin (Bld) [Mass/Vol] 11.0 g/dL Low 13.0 - 17.0 g/dL [facility] Immature granulocytes (Bld) [#/Vol] 0.16 10*3/uL High [facility] Immature granulocytes/100 WBC (Bld) 2.0 % [facility] Interpretation and review of laboratory results Abnormal [facility] Lymphocytes (Bld) [#/Vol] 1.92 10*3/uL [facility] Lymphocytes/100 WBC (Bld) 23.5 % [facility] MCH (RBC) [Entitic mass] 29.7 pg 26.0 - 34.0 pg [facility] MCHC (RBC) [Mass/Vol] 32.3 g/dL 30.5 - 36.0 g/dL [facility] MCV (RBC) [Entitic vol] 92.2 fL 80.0 - 100.0 fL [facility] Monocytes (Bld) [#/Vol] 0.74 10*3/uL [facility] Monocytes/100 WBC (Bld) 9.1 % [facility] Neutrophils (Bld) [#/Vol] 5.26 10*3/uL [facility] Neutrophils/100 WBC (Bld) 64.4 % [facility] Nucleated RBC (Bld) [#/Vol] [facility] Nucleated RBC/100 WBC (Bld) [Ratio] 0.0 % /100 WBC [facility] Platelet mean volume (Bld) [Entitic vol] 9.0 fL 9.0 - 12.7 fL [facility] Platelets (Bld) [#/Vol] 302 10*3/uL [facility] RBC (Bld) [#/Vol] 3.70 10*6/uL Low 4.20 - 6.0 0 m/uL [facility] WBC (Bld) [#/Vol] 8.16 10*3/uL [facility] Basophils (Bld) [#/Vol] 0.04 10*3/uL Normal <0.11 [facility] Comment on above: Order Comment: Speci men Type: BLOOD SPECIMENOrdering Facility: [facility] Address: [address] [place] [address] Performed By: #### 5 7021-8 ####[facility] LABCLIA [id number] [place] [address] Basophils/100 WBC (Bld) 0.5 % Normal [facility] Comment on above: Order Comment: Speci men Type: BLOOD SPECIMENOrdering Facility: [facility] Address: [address] [place] [address] Performed By: #### 5 7021-8 ####[facility] LABCLIA [id number] [place] [address] Differential cell count method Nom (Bld) Auto Normal [facility] Comment on above: Order Comment: Speci men Type: BLOOD SPECIMENOrdering Facility: [facility] Address: [address] [place] [address] Performed By: #### 5 7021-8 ####[facility] LABCLIA [id number] [place] [address] Eosinophils (Bld) [#/Vol] 0.04 10*3/uL Normal <0.46 [facility] Comment on above: Order Comment: Speci men Type: BLOOD SPECIMENOrdering Facility: [facility] Address: [address] [place] [address] Performed By: #### 5 7021-8 ####[facility] LABCLIA [id number] [place] [address] Eosinophils/100 WBC (Bld) 0.5 % Normal [facility] Comment on above: Order Comment: Speci men Type: BLOOD SPECIMENOrdering Facility: [facility] Address: [address] [place] [address] Performed By: #### 5 7021-8 ####[facility] [facility] LABCL[facility] [id number] [place] [address] Erythrocyte distribution width (RBC) [Ratio] 16.5 % High 11.5-15.0 [facility] Comment on above: Order Comment: Speci men Type: BLOOD SPECIMENOrdering Facility: [facility] Address: [address] [place] [address] Performed By: #### 5 7021-8 ####[facility] LABCLIA [id number] [place] [address] Hematocrit (Bld) [Volume fraction] 34.1 % Low 39.0-51.0 [facility] Comment on above: Order Comment: Speci men Type: BLOOD SPECIMENOrdering Facility: [facility] Address: [address] [place] [address] Performed By: #### 5 7021-8 ####[facility] LABCLIA [id number] [place] [address] Hemoglobin (Bld) [Mass/Vol] 11.0 g/dL Low 13.0-17.0 [facility] Comment on above: Order Comment: Speci men Type: BLOOD SPECIMENOrdering Facility: [facility] Address: [address] [place] [address] Performed By: #### 5 7021-8 ####[facility] LABIA [id number] [place] [address] Immature granulocytes (Bld) [#/Vol] 0.16 10*3/uL High <0.10 [facility] Comment on above: Order Comment: Speci men Type: BLOOD SPECIMENOrdering Facility: [facility] Address: [address] [place] [address] Performed By: #### 5 7021-8 ####[facility] LABCLIA [id number] [place] [address] Immature granulocytes/100 WBC (Bld) 2.0 % Normal [facility] Comment on above: Order Comment: Speci men Type: BLOOD SPECIMENOrdering Facility: [facility] Address: [address] [place] [address] Performed By: #### 5 7021-8 ####[facility] LABCLIA [id number] [place] [address] Lymphocytes (Bld) [#/Vol] 1.92 10*3/uL Normal 1.00-4.00 [facility] Comment on above: Order Comment: Speci men Type: BLOOD SPECIMENOrdering Facility: [facility] Address: [address] [place] [address] Performed By: #### 5 7021-8 ####[facility] LABCLIA [id number] [place] [address] Lymphocytes/100 WBC (Bld) 23.5 % Normal [facility] Comment on above: Order Comment: Speci men Type: BLOOD SPECIMENOrdering Facility: [facility] Address: [address] [place] [address] Performed By: #### 5 7021-8 ####[facility] LABCLIA [id number] [place] [address] MCH (RBC) [Entitic mass] 29.7 pg Normal 26.0-34.0 [facility] Comment on above: Order Comment: Speci men Type: BLOOD SPECIMENOrdering Facility: [facility] Address: [address] [place] [address] Performed By: #### 5 7021-8 ####[facility] LABCLIA [id number] [place] [address] MCHC (RBC) [Mass/Vol] 32.3 g/dL Normal 30.5-36.0 [facility] Comment on above: Order Comment: Speci men Type: BLOOD SPECIMENOrdering Facility: [facility] Address: [address] [place] [address] Performed By: #### 5 7021-8 ####[facility] LABCLIA [id number] [place] [address] MCV (RBC) [Entitic vol] 92.2 fL Normal 80.0-100.0 [facility] Comment on above: Order Comment: Speci men Type: BLOOD SPECIMENOrdering Facility: [facility] Address: [address] [place] [address] Performed By: #### 5 7021-8 ####[facility] LABCLIA [id number] [place] [address] Monocytes (Bld) [#/Vol] 0.74 10*3/uL Normal <0.87 [facility] Comment on above: Order Comment: Speci men Type: BLOOD SPECIMENOrdering Facility: [facility] Address: [address] [place] [address] Performed By: #### 5 7021-8 ####[facility] LABCLIA [id number] [place] [address] Monocytes/100 WBC (Bld) 9.1 % Normal [facility] Comment on above: Order Comment: Speci men Type: BLOOD SPECIMENOrdering Facility: [facility] Address: [address] [place] [address] Performed By: #### 5 7021-8 ####[facility] LABCLIA [id number] [place] [address] Neutrophils (Bld) [#/Vol] 5.26 10*3/uL Normal 1.45-7.50 [facility] Comment on above: Order Comment: Speci men Type: BLOOD SPECIMENOrdering Facility: [facility] Address: [address] [place] [address] Performed By: #### 5 7021-8 ####[facility] LABCLIA [id number] [place] [address] Neutrophils/100 WBC (Bld) 64.4 % Normal [facility] Comment on above: Order Comment: Speci men Type: BLOOD SPECIMENOrdering Facility: [facility] Address: [address] [place] [address] Performed By: #### 5 7021-8 ####[facility] LABCLIA [id number] [place] [address] Nucleated RBC (Bld) [#/Vol] 10*3/uL Normal <0.01 [facility] Comment on above: Order Comment: Speci men Type: BLOOD SPECIMENOrdering Facility: [facility] Address: [address] [place] [address] Performed By: #### 5 7021-8 ####[facility] LABCLIA [id number] [place] [address] Nucleated RBC/100 WBC (Bld) [Ratio] 0.0 /100 WBC Normal [facility] Comment on above: Order Comment: Speci men Type: BLOOD SPECIMENOrdering Facility: [facility] Address: [address] [place] [address] Performed By: #### 5 7021-8 ####[facility] LABCLIA [id number] [place] [address] Platelet mean volume (Bld) [Entitic vol] 9.0 fL Normal 9.0-12.7 [facility] Comment on above: Order Comment: Speci men Type: BLOOD SPECIMENOrdering Facility: [facility] Address: [address] [place] [address] Performed By: #### 5 7021-8 ####[facility] LABIA [id number] [place] [address] Platelets (Bld) [#/Vol] 302 10*3/uL Normal 150-400 [facility] Comment on above: Order Comment: Speci men Type: BLOOD SPECIMENOrdering Facility: [facility] Address: [address] [place] [address] Performed By: #### 5 7021-8 ####[facility] LABCLIA [id number] [place] [address] RBC (Bld) [#/Vol] 3.70 10*6/uL Low 4.20-6.00 [facility] Comment on above: Order Comment: Speci men Type: BLOOD SPECIMENOrdering Facility: [facility] Address: [address] [place] [address] Performed By: #### 5 7021-8 ####[facility] LABIA [id number] [place] [address] WBC (Bld) [#/Vol] 8.16 10*3/uL Normal 3.70-11.00 [facility] Comment on above: Order Comment: Speci men Type: BLOOD SPECIMENOrdering Facility: [facility] Address: [address] [place] [address] Performed By: #### 5 7021-8 ####[facility] LABIA [id number] [place] [address] CNOVSPon 04-02-2024 CNOVSP Normal [facility] Cancer Ag19-9 SerPl-aCncon 1 06-02-2023 Cancer Ag 19-9 Qn 496.0 [arb'U]/mL High <36.0 [facility] Comment on above: Order Comment: Speci men Type: BLOOD SPECIMENOrdering Facility: [facility] Address: [address] [place] [address] Result Comment: [facility] er antigen 19-9 test is used as an aid in monitoring response to treatment or recurrence in patients with established pancreatic, hepatobiliary, or gastrointestinal malignancies. Clinical correlation is required.The CA 19-9 Antigen test was performed using the [employer] DXI paramagnetic particle chemiluminescent immunoassay method. Results obtained with different assay methods or kits cannot be used interchangeably. Performed By: #### 2 4108-3 ####[facility] LABCLIA [id number] [place] [id number] [place] Comprehensive metabolic 2000 panelOrdered By: Marina Bailey on 04-02-2024 Albumin [Mass/Vol] 3.8 g/dL Low 3.9 - 4.9 g/dL [facility] ALP [Catalytic activity/Vol] 152 U/L High 38 - 113 U/L [facility] ALT [Catalytic activity/Vol] 16 U/L 10 - 54 U/L [facility] Anion gap [Moles/Vol] 10 mmol/L 8 - 15 mmol/L [facility] AST [Catalytic activity/Vol] 14 U/L 14 - 40 U/L [facility] Bilirubin [Mass/Vol] 0.6 mg/dL 0.2 - 1 .3 mg/dL [facility] Calcium [Mass/Vol] 9.8 mg/dL 8.5 - 10. 2 mg/dL [facility] Chloride [Moles/Vol] 105 mmol/L 98 - 10 7 mmol/L [facility] CO2 [Moles/Vol] 24 mmol/L 22 - 30 mmol/L [facility] Creatinine [Mass/Vol] 0.75 mg/dL 0.73 - 1.22 mg/dL [facility] GFR/1.73 sq M.predicted among non-blacks MDRD (S/P/Bld) [Vol rate/Area] 96 mL/min/{1.73_m2} - PINF [facility] Comment on above: Estimated Glomerular [...] not accurately reflect actual GFR. Glucose [Mass/Vol] 143 mg/dL High 74 - 99 mg/dL [facility] Comment on above: The [place] Di[employer] Association (ADA) provides guidance for [...] Standards of Medical Care in Diabetes 2016, [place] [employer]. Diabetes Care. 2016.39(Suppl 1). Interpretation and review of laboratory results Abnormal [facility] Potassium [Moles/Vol] 4.2 mmol/L 3.7 - 5.1 mmol/L [facility] Protein [Mass/Vol] 6.5 g/dL 6.3 - 8.0 g/dL [facility] Sodium [Moles/Vol] 139 mmol/L 136 - 144 mmol/L [facility] Urea nitrogen [Mass/Vol] 11 mg/dL 9 - 24 mg/dL [facility] Comprehensive metabolic 2000 panelon 04-02-2024 Albumin [Mass/Vol] 3.8 g/dL Low 3.9-4.9 [facility] Comment on above: Order Comment: Speci men Type: BLOOD SPECIMENOrdering Facility: [facility] Address: [address] [place] [address] Performed By: #### 2 4323-8 ####[facility] LABCLIA [id number] [place] [address] ALP [Catalytic activity/Vol] 152 U/L High 38-113 [facility] Comment on above: Order Comment: Speci men Type: BLOOD SPECIMENOrdering Facility: [facility] Address: [address] [place] [address] Performed By: #### 2 4323-8 ####[facility] LABCLIA [id number] [place] [address] ALT [Catalytic activity/Vol] 16 U/L Normal 10-54 [facility] Comment on above: Order Comment: Speci men Type: BLOOD SPECIMENOrdering Facility: [facility] Address: [address] [place] [address] Performed By: #### 2 4323-8 ####[facility] LABCLIA [id number] [place] [address] Anion gap [Moles/Vol] 10 mmol/L Normal 8-15 [facility] Comment on above: Order Comment: Speci men Type: BLOOD SPECIMENOrdering Facility: [facility] Address: [address] [place] [address] Performed By: #### 2 4323-8 ####[facility] LABCLIA [id number] [place] [address] AST [Catalytic activity/Vol] 14 U/L Normal 14-40 [facility] Comment on above: Order Comment: Speci men Type: BLOOD SPECIMENOrdering Facility: [facility] Address: [address] [place] [address] Performed By: #### 2 4323-8 ####[facility] LABCLIA [id number] [place] [address] Bilirubin [Mass/Vol] 0.6 mg/dL Normal 0.2-1.3 [facility] Comment on above: Order Comment: Speci men Type: BLOOD SPECIMENOrdering Facility: [facility] Address: [address] [place] [address] Performed By: #### 2 4323-8 ####[facility] LABCLIA [id number] [place] [address] Calcium [Mass/Vol] 9.8 mg/dL Normal 8.5-10.2 [facility] Comment on above: Order Comment: Speci men Type: BLOOD SPECIMENOrdering Facility: [facility] Address: [address] [place] [address] Performed By: #### 2 4323-8 ####[facility] LABCLIA [id number] [place] [address] Chloride [Moles/Vol] 105 mmol/L Normal 98-107 [facility] Comment on above: Order Comment: Speci men Type: BLOOD SPECIMENOrdering Facility: [facility] Address: [address] [place] [address] Performed By: #### 2 4323-8 ####[facility] LABCLIA [id number] [place] [address] CO2 [Moles/Vol] 24 mmol/L Normal 22-30 [facility] Comment on above: Order Comment: Speci men Type: BLOOD SPECIMENOrdering Facility: [facility] Address: [address] [place] [address] Performed By: #### 2 4323-8 ####[facility] LABCLIA [id number] [place] [address] Creatinine [Mass/Vol] 0.75 mg/dL Normal 0.73-1.22 [facility] Comment on above: Order Comment: Speci men Type: BLOOD SPECIMENOrdering Facility: [facility] Address: [address] [place] [address] Performed By: #### 2 4323-8 ####[facility] LABCLIA [id number] [place] [address] Creatinine and Glomerular filtration rate.predicted panel (S/P/Bld) 96 mL/min/1.73m??? Normal >=60 [facility] Comment on above: Order Comment: Speci men Type: BLOOD SPECIMENOrdering Facility: [facility] Address: [address] [place] [address] Result Comment: Kathy mated Glomerular Filtration Rate [...] actual GFR. Performed By: #### 2 4323-8 ####[facility] LABIA [id number] [place] [address] Glucose [Mass/Vol] 143 mg/dL High 74-99 [facility] Comment on above: Order Comment: Speci men Type: BLOOD SPECIMENOrdering Facility: [facility] Address: [address] [place] [address] Result Comment: The [place] Diabetes Association (ADA) provides guidance for cutoff [...] Standards of Medical Care in Diabetes 2016, [place] [employer] Association. Diabetes Care. 2016.39(Suppl 1). Performed By: #### 2 4323-8 ####[facility] LABCLIA [id number] [place] [address] Potassium [Moles/Vol] 4.2 mmol/L Normal 3.7-5.1 [facility] Comment on above: Order Comment: Speci men Type: BLOOD SPECIMENOrdering Facility: [facility] Address: [address] [place] [address] Performed By: #### 2 4323-8 ####[facility] LABCLIA [id number] [place] [address] Protein [Mass/Vol] 6.5 g/dL Normal 6.3-8.0 [facility] Comment on above: Order Comment: Speci men Type: BLOOD SPECIMENOrdering Facility: [facility] Address: [address] [place] [address] Performed By: #### 2 4323-8 ####[facility] LABCLIA [id number] [place] [address] Sodium [Moles/Vol] 139 mmol/L Normal 136-144 [facility] Comment on above: Order Comment: Speci men Type: BLOOD SPECIMENOrdering Facility: [facility] Address: [address] [place] [id number] Performed By: #### 2 4323-8 ####[facility] LABCLIA [id number] [place] [address] Urea nitrogen [Mass/Vol] 11 mg/dL Normal 9-24 [facility] Comment on above: Order Comment: Speci men Type: BLOOD SPECIMENOrdering Facility: [facility] Address: [address] [place] [address] Performed By: #### 2 4323-8 ####[facility] LABCLIA [id number] [place] [address] CNPNon 03-18-2024 CNPN Normal [facility] CNPNon 03-07-2024 CNPN Normal [facility] CBC W Auto Differential pane l (Bld)on 03-05-2024 Basophils (Bld) [#/Vol] [facility] Differential cell count method Nom (Bld) Auto [facility] Eosinophils (Bld) [#/Vol] 0.04 10*3/uL [facility] Immature granulocytes (Bld) [#/Vol] 0.04 10*3/uL [facility] Immature granulocytes/100 WBC (Bld) 0.8 % [facility] Lymphocytes (Bld) [#/Vol] 1.62 10*3/uL [facility] Monocytes (Bld) [#/Vol] 0.91 10*3/uL High [facility] Neutrophils (Bld) [#/Vol] 2.67 10*3/uL [facility] Nucleated RBC (Bld) [#/Vol] [facility] Nucleated RBC/100 WBC (Bld) [Ratio] 0.0 % /100 WBC [facility] Platelet mean volume (Bld) [Entitic vol] 8.9 fL Low 9.0 - 12.7 fL [facility] Platelets (Bld) [#/Vol] 301 10*3/uL [facility] WBC (Bld) [#/Vol] 5.30 10*3/uL [facility] Basophils (Bld) [#/Vol] 10*3/uL Normal <0.11 [facility] Comment on above: Order Comment: Speci men Type: BLOOD SPECIMENOrdering Facility: [facility] Address: [address] [place], [place] [address] Performed By: #### 5 7021-8 ####[facility] LABCLIA [id number] [place] [address] Basophils/100 WBC (Bld) 0.4 % Normal [facility] Comment on above: Order Comment: Speci men Type: BLOOD SPECIMENOrdering Facility: [facility] Address: [address] [place] [address] Performed By: #### 5 7021-8 ####[facility] LABCLIA [id number] [place] [address] Differential cell count method Nom (Bld) Auto Normal [facility] Comment on above: Order Comment: Speci men Type: BLOOD SPECIMENOrdering Facility: [facility] Address: [address] [place] [address] Performed By: #### 5 7021-8 ####[facility] LABCLIA [id number] [place] [address] Eosinophils (Bld) [#/Vol] 0.04 10*3/uL Normal <0.46 [facility] Comment on above: Order Comment: Speci men Type: BLOOD SPECIMENOrdering Facility: [facility] Address: [address] [place] [address] Performed By: #### 5 7021-8 ####[facility] LABCLIA [id number] [place] [address] Eosinophils/100 WBC (Bld) 0.8 % Normal [facility] Comment on above: Order Comment: Speci men Type: BLOOD SPECIMENOrdering Facility: [facility] Address: [address] [place] [address] Performed By: #### 5 7021-8 ####[facility] LABCLIA [id number] [place] [address] Erythrocyte distribution width (RBC) [Ratio] 16.4 % High 11.5-15.0 [facility] Comment on above: Order Comment: Speci men Type: BLOOD SPECIMENOrdering Facility: [facility] Address: [address] [place] [address] Performed By: #### 5 7021-8 ####[facility] LABIA [id number] [place] [address] Hematocrit (Bld) [Volume fraction] 35.6 % Low 39.0-51.0 [facility] Comment on above: Order Comment: Speci men Type: BLOOD SPECIMENOrdering Facility: [facility] Address: [address] [place] [address] Performed By: #### 5 7021-8 ####[facility] LABIA [id number] [place] [address] Hemoglobin (Bld) [Mass/Vol] 11.6 g/dL Low 13.0-17.0 [facility] Comment on above: Order Comment: Speci men Type: BLOOD SPECIMENOrdering Facility: [facility] Address: [address] [place] [address] Performed By: #### 5 7021-8 ####[facility] LABIA [id number] [place] [address] Immature granulocytes (Bld) [#/Vol] 0.04 10*3/uL Normal <0.10 [facility] Comment on above: Order Comment: Speci men Type: BLOOD SPECIMENOrdering Facility: [facility] Address: [address] [place] [address] Performed By: #### 5 7021-8 ####[facility] LABCLIA [id number] [place] [address] Immature granulocytes/100 WBC (Bld) 0.8 % Normal [facility] Comment on above: Order Comment: Speci men Type: BLOOD SPECIMENOrdering Facility: [facility] Address: [address] [place] [address] Performed By: #### 5 7021-8 ####[facility] LABCLIA [id number] [place] [address] Lymphocytes (Bld) [#/Vol] 1.62 10*3/uL Normal 1.00-4.00 [facility] Comment on above: Order Comment: Speci men Type: BLOOD SPECIMENOrdering Facility: [facility] Address: [address] [place] [address] Performed By: #### 5 7021-8 ####[facility] LABCLIA [id number] [place] [address] Lymphocytes/100 WBC (Bld) 30.6 % Normal [facility] Comment on above: Order Comment: Speci men Type: BLOOD SPECIMENOrdering Facility: [facility] Address: [address] [place] [address] Performed By: #### 5 7021-8 ####[facility] LABCLIA [id number] [place] [address] MCH (RBC) [Entitic mass] 30.4 pg Normal 26.0-34.0 [facility] Comment on above: Order Comment: Speci men Type: BLOOD SPECIMENOrdering Facility: [facility] Address: [address] [place] [address] Performed By: #### 5 7021-8 ####[facility] LABCLIA [id number] [place] [address] MCHC (RBC) [Mass/Vol] 32.6 g/dL Normal 30.5-36.0 [facility] Comment on above: Order Comment: Speci men Type: BLOOD SPECIMENOrdering Facility: [facility] Address: [address] [place] [address] Performed By: #### 5 7021-8 ####[facility] LABCLIA [id number] [place] [address] MCV (RBC) [Entitic vol] 93.4 fL Normal 80.0-100.0 [facility] Comment on above: Order Comment: Speci men Type: BLOOD SPECIMENOrdering Facility: [facility] Address: [address] [place] [address] Performed By: #### 5 7021-8 ####[facility] LABCLIA [id number] [place] [address] Monocytes (Bld) [#/Vol] 0.91 10*3/uL High <0.87 [facility] Comment on above: Order Comment: Speci men Type: BLOOD SPECIMENOrdering Facility: [facility] Address: [address] [place] [address] Performed By: #### 5 7021-8 ####[facility] LABCLIA [id number] [place] [address] Monocytes/100 WBC (Bld) 17.2 % Normal [facility] Comment on above: Order Comment: Speci men Type: BLOOD SPECIMENOrdering Facility: [facility] Address: [address] [place] [address] Performed By: #### 5 7021-8 ####[facility] LABCLIA [id number] [place] [address] Neutrophils (Bld) [#/Vol] 2.67 10*3/uL Normal 1.45-7.50 [facility] Comment on above: Order Comment: Speci men Type: BLOOD SPECIMENOrdering Facility: [facility] Address: [address] [place] [address] Performed By: #### 5 7021-8 ####[facility] LABCLIA [id number] [place] [address] Neutrophils/100 WBC (Bld) 50.2 % Normal [facility] Comment on above: Order Comment: Speci men Type: BLOOD SPECIMENOrdering Facility: [facility] Address: [address] [place] [address] Performed By: #### 5 7021-8 ####[facility] LABCLIA [id number] [place] [address] Nucleated RBC (Bld) [#/Vol] 10*3/uL Normal <0.01 [facility] Comment on above: Order Comment: Speci men Type: BLOOD SPECIMENOrdering Facility: [facility] Address: [address] [place] [address] Performed By: #### 5 7021-8 ####[facility] LABCLIA [id number] [place] [address] Nucleated RBC/100 WBC (Bld) [Ratio] 0.0 /100 WBC Normal [facility] Comment on above: Order Comment: Speci men Type: BLOOD SPECIMENOrdering Facility: [facility] Address: [address] [place] [address] Performed By: #### 5 7021-8 ####[facility] LABIA [id number] [place] [address] Platelet mean volume (Bld) [Entitic vol] 8.9 fL Low 9.0-12.7 [facility] Comment on above: Order Comment: Speci men Type: BLOOD SPECIMENOrdering Facility: [facility] Address: [address] [place] [address] Performed By: #### 5 7021-8 ####[facility] LABIA [id number] [place] [address] Platelets (Bld) [#/Vol] 301 10*3/uL Normal 150-400 [facility] Comment on above: Order Comment: Speci men Type: BLOOD SPECIMENOrdering Facility: [facility] Address: [address] [place] [address] Performed By: #### 5 7021-8 ####[facility] LABIA [id number] [place] [address] RBC (Bld) [#/Vol] 3.81 10*6/uL Low 4.20-6.00 [facility] Comment on above: Order Comment: Speci men Type: BLOOD SPECIMENOrdering Facility: [facility] Address: [address] [place] [address] Performed By: #### 5 7021-8 ####[facility] LABCLIA [id number] [place] [address] WBC (Bld) [#/Vol] 5.30 10*3/uL Normal 3.70-11.00 [facility] Comment on above: Order Comment: Speci men Type: BLOOD SPECIMENOrdering Facility: [facility] Address: [address] [place] [address] Performed By: #### 5 7021-8 ####[facility] LABCLIA [id number] [place] [address] [facility] CBC W AUTO DIFF BLDon [facility] BASOPHILS # BLD AUTO <0.03 [facility] DIFFERENTIAL METHOD BLD Auto [facility] EOSINOPHIL # BLD AUTO 0.04 [facility] LYMPHOCYTES # BLD AUTO 1.62 [facility] MONOCYTES # BLD AUTO 0.91 High [facility] NEUTROPHILS # BLD AUTO 2.67 [facility] NRBC # BLD AUTO <0.01 [facility] NRBC/100 WBC BLD-RTO 0 /100 WBC [facility] PLATELET # BLD AUTO 301 [facility] PMV BLD AUTO 8.9 fL Low 9.0 - 12.7 fL [facility] WBC # BLD AUTO 5.3 [facility] IMM GRANULOCYTES # BLD AUTO 0.04 [facility] IMM GRANULOCYTES/LEUK NFR BLD AUTO 0.8 % [facility] Specimen Type: BLOOD SPECIMEN [facility] Address: [address] [place] [address] Original Ordering Provider: VIVEK SMITH [facility] CNOVSPon 03-05-2024 CNOVSP Normal [facility] Cancer Ag19-9 SerPl-aCncon 1 Cancer Ag 19-9 Qn 385.0 [arb'U]/mL High <36.0 C [facility] Comment on above: Order Comment: Speci men Type: BLOOD SPECIMENOrdering Facility: [facility] Address: [address] [place] [address] Result Comment: Canc er antigen 19-9 test is used as an aid in monitoring response to treatment or recurrence in patients with established pancreatic, hepatobiliary, or gastrointestinal malignancies. Clinical correlation is required.The CA 19-9 Antigen test was performed using the [employer] DXI paramagnetic particle chemiluminescent immunoassay method. Results obtained with different assay methods or kits cannot be used interchangeably. Performed By: #### 2 4108-3 ####[facility] LABCLIA [id number] [place] [address] [place] Comprehensive metabolic 2000 panelOrdered By: Elizabeth Yu on 03-05-2024 Albumin [Mass/Vol] 3.9 g/dL 3.9 - 4.9 g/dL [facility] ALP [Catalytic activity/Vol] 177 U/L High 38 - 113 U/L [facility] ALT [Catalytic activity/Vol] 17 U/L 10 - 54 U/L [facility] Anion gap [Moles/Vol] 11 mmol/L 8 - 15 mmol/L [facility] AST [Catalytic activity/Vol] 19 U/L 14 - 40 U/L [facility] Bilirubin [Mass/Vol] 0.7 mg/dL 0.2 - 1 .3 mg/dL [facility] Calcium [Mass/Vol] 10.2 mg/dL 8.5 - 10. 2 mg/dL [facility] Chloride [Moles/Vol] 105 mmol/L 98 - 10 7 mmol/L [facility] CO2 [Moles/Vol] 22 mmol/L 22 - 30 mmol/L [facility] Creatinine [Mass/Vol] 0.81 mg/dL 0.73 - 1.22 mg/dL [facility] GFR/1.73 sq M.predicted among non-blacks MDRD (S/P/Bld) [Vol rate/Area] 94 mL/min/{1.73_m2} - PINF [facility] Comment on above: Estimated Glomerular [...] 163 mg/dL High 74 - 99 mg/dL [facility] Comment on above: The [place] Diabete [employer] Association (ADA) provides guidance for [...] Standards of Medical Care in Diabetes 2016, [place] [employer]. Diabetes Care. 2016.39(Suppl 1). Interpretation and review of laboratory results Abnormal [facility] Potassium [Moles/Vol] 4.4 mmol/L 3.7 - 5.1 mmol/L [facility] Protein [Mass/Vol] 6.8 g/dL 6.3 - 8.0 g/dL [facility] Sodium [Moles/Vol] 138 mmol/L 136 - 144 mmol/L [facility] Urea nitrogen [Mass/Vol] 14 mg/dL 9 - 24 mg/dL [facility] Comprehensive metabolic 2000 panelon 03-05-2024 Albumin [Mass/Vol] 3.9 g/dL Normal 3.9-4.9 [facility] Comment on above: Order Comment: Speci men Type: BLOOD SPECIMENOrdering Facility: [facility] Address: [address] [place] [address] Performed By: #### 2 4323-8 ####[facility] LABCLIA [id number] [place] [address] ALP [Catalytic activity/Vol] 177 U/L High 38-113 [facility] Comment on above: Order Comment: Speci men Type: BLOOD SPECIMENOrdering Facility: [facility] Address: [address] [place] [address] Performed By: #### 2 4323-8 ####[facility] LABCLIA [id number] [place] [address] ALT [Catalytic activity/Vol] 17 U/L Normal 10-54 [facility] Comment on above: Order Comment: Speci men Type: BLOOD SPECIMENOrdering Facility: [facility] Address: [address] [place], [place] [address] Performed By: #### 2 4323-8 ####[facility] LABCLIA [id number] [place] [address] Anion gap [Moles/Vol] 11 mmol/L Normal 8-15 [facility] Comment on above: Order Comment: Speci men Type: BLOOD SPECIMENOrdering Facility: [facility] Address: [address] [place] [address] Performed By: #### 2 4323-8 ####[facility] LABCLIA [id number] [place] [address] AST [Catalytic activity/Vol] 19 U/L Normal 14-40 [facility] Comment on above: Order Comment: Speci men Type: BLOOD SPECIMENOrdering Facility: [facility] Address: [address] [place] [address] Performed By: #### 2 4323-8 ####[facility] LABCLIA [id number] [place] [address] Bilirubin [Mass/Vol] 0.7 mg/dL Normal 0.2-1.3 [facility] Comment on above: Order Comment: Speci men Type: BLOOD SPECIMENOrdering Facility: [facility] Address: [address] [place] [address] Performed By: #### 2 4323-8 ####[facility] LABCLIA [id number] [place] [address] Calcium [Mass/Vol] 10.2 mg/dL Normal 8.5-10.2 [facility] Comment on above: Order Comment: Speci men Type: BLOOD SPECIMENOrdering Facility: [facility] Address: [address] [place] [address] Performed By: #### 2 4323-8 ####[facility] LABCLIA [id number] [place] [address] Chloride [Moles/Vol] 105 mmol/L Normal 98-107 [facility] Comment on above: Order Comment: Speci men Type: BLOOD SPECIMENOrdering Facility: [facility] Address: [address] [place] [address] Performed By: #### 2 4323-8 ####[facility] LABCLIA [id number] [place] [address] CO2 [Moles/Vol] 22 mmol/L Normal 22-30 [facility] Comment on above: Order Comment: Speci men Type: BLOOD SPECIMENOrdering Facility: [facility] Address: [address] [place] [address] Performed By: #### 2 4323-8 ####[facility] LABCLIA [id number] [place] [address] Creatinine [Mass/Vol] 0.81 mg/dL Normal 0.73-1.22 [facility] Comment on above: Order Comment: Speci men Type: BLOOD SPECIMENOrdering Facility: [facility] Address: [address] [place] [address] Performed By: #### 2 4323-8 ####[facility] LABCLIA [id number] [place] [address] Creatinine and Glomerular filtration rate.predicted panel (S/P/Bld) 94 mL/min/1.73m??? Normal >=60 [facility] Comment on above: Order Comment: Speci men Type: BLOOD SPECIMENOrdering Facility: [facility] Address: [address] [place] [address] Result Comment: Kathy mated Glomerular Filtration Rate [...] actual GFR. Performed By: #### 2 4323-8 ####[facility] LABCLIA [id number] [place] [address] Glucose [Mass/Vol] 163 mg/dL High 74-99 [facility] Comment on above: Order Comment: Speci men Type: BLOOD SPECIMENOrdering Facility: [facility] Address: [address] [place], [place] [address] Result Comment: The [place] Diabetes Association (ADA) provides guidance for cutoff [...] Standards of Medical Care in Diabetes 2016, [place] [employer] Association. Diabetes Care. 2016.39(Suppl 1). Performed By: #### 2 4323-8 ####[facility] LABCLIA [id number] [place] [address] Potassium [Moles/Vol] 4.4 mmol/L Normal 3.7-5.1 [facility] Comment on above: Order Comment: Speci men Type: BLOOD SPECIMENOrdering Facility: [facility] Address: [address] [place] [address] Performed By: #### 2 4323-8 ####[facility] LABCLIA [id number] [place] [address] Protein [Mass/Vol] 6.8 g/dL Normal 6.3-8.0 [facility] Comment on above: Order Comment: Speci men Type: BLOOD SPECIMENOrdering Facility: [facility] Address: [address] [place] [address] Performed By: #### 2 4323-8 ####[facility] LABCLIA [id number] [place] [address] Sodium [Moles/Vol] 138 mmol/L Normal 136-144 [facility] Comment on above: Order Comment: Speci men Type: BLOOD SPECIMENOrdering Facility: [facility] Address: [address] [place] [address] Performed By: #### 2 4323-8 ####[facility] LABCLIA [id number] [place] [address] Urea nitrogen [Mass/Vol] 14 mg/dL Normal 9-24 [facility] Comment on above: Order Comment: Speci men Type: BLOOD SPECIMENOrdering Facility: [facility] Address: [address] [place] [address] Performed By: #### 2 4323-8 ####[facility] LABCLIA [id number] [place] [address] Laboratory - Hematology and Cell countson 03-05-2024 Basophils/100 WBC (Bld) 0.4 % [facility] Eosinophils/100 WBC (Bld) 0.8 % [facility] Erythrocyte distribution width (RBC) [Ratio] 16.4 % High 11.5 - 15.0 % [facility] Hematocrit (Bld) [Volume fraction] 35.6 % Low 39.0 - 51.0 % [facility] Hemoglobin (Bld) [Mass/Vol] 11.6 g/dL Low 13.0 - 17.0 g/dL [facility] Lymphocytes/100 WBC (Bld) 30.6 % [facility] MCH (RBC) [Entitic mass] 30.4 pg 26.0 - 34.0 pg [facility] MCHC (RBC) [Mass/Vol] 32.6 g/dL 30.5 - 36.0 g/dL [facility] MCV (RBC) [Entitic vol] 93.4 fL 80.0 - 100.0 fL [facility] Monocytes/100 WBC (Bld) 17.2 % [facility] Neutrophils/100 WBC (Bld) 50.2 % [facility] RBC (Bld) [#/Vol] 3.81 10*6/uL Low 4.20 - 6.0 0 m/uL [facility] No Panel Informationon 03-05 Interpretation and review of laboratory results Abnormal [facility] CBC W Auto Differential pane l (Bld)on 02-12-2024 Basophils (Bld) [#/Vol] [facility] Basophils/100 WBC (Bld) 0.4 % [facility] Differential cell count method Nom (Bld) Auto [facility] Eosinophils (Bld) [#/Vol] 0.06 10*3/uL [facility] Eosinophils/100 WBC (Bld) 1.3 % [facility] Erythrocyte distribution width (RBC) [Ratio] 16.0 % High 11.5 - 15.0 % [facility] Hematocrit (Bld) [Volume fraction] 34.0 % Low 39.0 - 51.0 % [facility] Hemoglobin (Bld) [Mass/Vol] 11.3 g/dL Low 13.0 - 17.0 g/dL [facility] Immature granulocytes (Bld) [#/Vol] [facility] Immature granulocytes/100 WBC (Bld) 0.4 % [facility] Interpretation and review of laboratory results Abnormal [facility] Lymphocytes (Bld) [#/Vol] 1.65 10*3/uL [facility] Lymphocytes/100 WBC (Bld) 35.9 % [facility] MCH (RBC) [Entitic mass] 30.5 pg 26.0 - 34.0 pg [facility] MCHC (RBC) [Mass/Vol] 33.2 g/dL 30.5 - 36.0 g/dL [facility] MCV (RBC) [Entitic vol] 91.9 fL 80.0 - 100.0 fL [facility] Monocytes (Bld) [#/Vol] 0.63 10*3/uL [facility] Monocytes/100 WBC (Bld) 13.7 % [facility] Neutrophils (Bld) [#/Vol] 2.22 10*3/uL [facility] Neutrophils/100 WBC (Bld) 48.3 % [facility] Nucleated RBC (Bld) [#/Vol] [facility] Nucleated RBC/100 WBC (Bld) [Ratio] 0.0 % /100 WBC [facility] Platelet mean volume (Bld) [Entitic vol] 9.0 fL 9.0 - 12.7 fL [facility] Platelets (Bld) [#/Vol] 291 10*3/uL [facility] RBC (Bld) [#/Vol] 3.70 10*6/uL Low 4.20 - 6.0 0 m/uL [facility] WBC (Bld) [#/Vol] 4.60 10*3/uL [facility] Basophils (Bld) [#/Vol] 10*3/uL Normal <0.11 [facility] Comment on above: Order Comment: Speci men Type: BLOOD SPECIMENOrdering Facility: [facility] Address: [address] [place] [address] Performed By: #### 5 7021-8 ####[facility] LABCLIA [id number] [place] [address] Basophils/100 WBC (Bld) 0.4 % Normal [facility] Comment on above: Order Comment: Speci men Type: BLOOD SPECIMENOrdering Facility: [facility] Address: [address] [place] [address] Performed By: #### 5 7021-8 ####[facility] LABCLIA [id number] [place] [address] Differential cell count method Nom (Bld) Auto Normal [facility] Comment on above: Order Comment: Speci men Type: BLOOD SPECIMENOrdering Facility: [facility] Address: [address] [place] [address] Performed By: #### 5 7021-8 ####[facility] LABCLIA [id number] [place] [address] Eosinophils (Bld) [#/Vol] 0.06 10*3/uL Normal <0.46 [facility] Comment on above: Order Comment: Speci men Type: BLOOD SPECIMENOrdering Facility: [facility] Address: [address] [place] [address] Performed By: #### 5 7021-8 ####[facility] LABCLIA [id number] [place] [address] Eosinophils/100 WBC (Bld) 1.3 % Normal [facility] Comment on above: Order Comment: Speci men Type: BLOOD SPECIMENOrdering Facility: [facility] Address: [address] [place] [address] Performed By: #### 5 7021-8 ####[facility] LABCLIA [id number] [place] [address] Erythrocyte distribution width (RBC) [Ratio] 16.0 % High 11.5-15.0 [facility] Comment on above: Order Comment: Speci men Type: BLOOD SPECIMENOrdering Facility: [facility] Address: [address] [place] [address] Performed By: #### 5 7021-8 ####[facility] LABCLIA [id number] [place] [address] Hematocrit (Bld) [Volume fraction] 34.0 % Low 39.0-51.0 [facility] Comment on above: Order Comment: Speci men Type: BLOOD SPECIMENOrdering Facility: [facility] Address: [address] [place] [address] Performed By: #### 5 7021-8 ####[facility] LABCLIA [id number] [place] [address] Hemoglobin (Bld) [Mass/Vol] 11.3 g/dL Low 13.0-17.0 [facility] Comment on above: Order Comment: Speci men Type: BLOOD SPECIMENOrdering Facility: [facility] Address: [address] [place] [address] Performed By: #### 5 7021-8 ####[facility] LABIA [id number] [place] [address] Immature granulocytes (Bld) [#/Vol] 10*3/uL Normal <0.10 [facility] Comment on above: Order Comment: Speci men Type: BLOOD SPECIMENOrdering Facility: [facility] Address: [address] [place] [address] Performed By: #### 5 7021-8 ####[facility] LABCLIA [id number] [place] [address] Immature granulocytes/100 WBC (Bld) 0.4 % Normal [facility] Comment on above: Order Comment: Speci men Type: BLOOD SPECIMENOrdering Facility: [facility] Address: [address] [place] [address] Performed By: #### 5 7021-8 ####[facility] LABCLIA [id number] [place] [address] Lymphocytes (Bld) [#/Vol] 1.65 10*3/uL Normal 1.00-4.00 [facility] Comment on above: Order Comment: Speci men Type: BLOOD SPECIMENOrdering Facility: [facility] Address: [address] [place] [address] Performed By: #### 5 7021-8 ####[facility] LABCLIA [id number] [place] [address] Lymphocytes/100 WBC (Bld) 35.9 % Normal [facility] Comment on above: Order Comment: Speci men Type: BLOOD SPECIMENOrdering Facility: [facility] Address: [address] [place] [address] Performed By: #### 5 7021-8 ####[facility] LABCLIA [id number] [place] [address] MCH (RBC) [Entitic mass] 30.5 pg Normal 26.0-34.0 [facility] Comment on above: Order Comment: Speci men Type: BLOOD SPECIMENOrdering Facility: [facility] Address: [address] [place] [address] Performed By: #### 5 7021-8 ####[facility] LABCLIA [id number] [place] [address] MCHC (RBC) [Mass/Vol] 33.2 g/dL Normal 30.5-36.0 [facility] Comment on above: Order Comment: Speci men Type: BLOOD SPECIMENOrdering Facility: [facility] Address: [address] [place] [address] Performed By: #### 5 7021-8 ####[facility] LABCLIA [id number] [place] [address] MCV (RBC) [Entitic vol] 91.9 fL Normal 80.0-100.0 [facility] Comment on above: Order Comment: Speci men Type: BLOOD SPECIMENOrdering Facility: [facility] Address: [address] [place] [address] Performed By: #### 5 7021-8 ####[facility] LABCLIA [id number] [place] [address] Monocytes (Bld) [#/Vol] 0.63 10*3/uL Normal <0.87 [facility] Comment on above: Order Comment: Speci men Type: BLOOD SPECIMENOrdering Facility: [facility] Address: [address] [place] [address] Performed By: #### 5 7021-8 ####[facility] LABCLIA [id number] [place] [address] Monocytes/100 WBC (Bld) 13.7 % Normal [facility] Comment on above: Order Comment: Speci men Type: BLOOD SPECIMENOrdering Facility: [facility] Address: [address] [place] [address] Performed By: #### 5 7021-8 ####[facility] LABCLIA [id number] [place] [address] Neutrophils (Bld) [#/Vol] 2.22 10*3/uL Normal 1.45-7.50 [facility] Comment on above: Order Comment: Speci men Type: BLOOD SPECIMENOrdering Facility: [facility] Address: [address] [place] [address] Performed By: #### 5 7021-8 ####[facility] LABCLIA [id number] [place] [address] Neutrophils/100 WBC (Bld) 48.3 % Normal [facility] Comment on above: Order Comment: Speci men Type: BLOOD SPECIMENOrdering Facility: [facility] Address: [address] [place] [address] Performed By: #### 5 7021-8 ####[facility] LABCLIA [id number] [place] [address] Nucleated RBC (Bld) [#/Vol] 10*3/uL Normal <0.01 [facility] Comment on above: Order Comment: Speci men Type: BLOOD SPECIMENOrdering Facility: [facility] Address: [address] [place] [address] Performed By: #### 5 7021-8 ####[facility] LABCLIA [id number] [place] [address] Nucleated RBC/100 WBC (Bld) [Ratio] 0.0 /100 WBC Normal [facility] Comment on above: Order Comment: Speci men Type: BLOOD SPECIMENOrdering Facility: [facility] Address: [address] [place] [address] Performed By: #### 5 7021-8 ####[facility] LABCLIA [id number] [place] [address] Platelet mean volume (Bld) [Entitic vol] 9.0 fL Normal 9.0-12.7 [facility] Comment on above: Order Comment: Speci men Type: BLOOD SPECIMENOrdering Facility: [facility] Address: [address] [place] [address] Performed By: #### 5 7021-8 ####[facility] LABCLIA [id number] [place] [address] Platelets (Bld) [#/Vol] 291 10*3/uL Normal 150-400 [facility] Comment on above: Order Comment: Speci men Type: BLOOD SPECIMENOrdering Facility: [facility] Address: [address] [place], [place] [address] Performed By: #### 5 7021-8 ####[facility] LABCLIA [id number] [place] [address] RBC (Bld) [#/Vol] 3.70 10*6/uL Low 4.20-6.00 [facility] Comment on above: Order Comment: Speci men Type: BLOOD SPECIMENOrdering Facility: [facility] Address: [address] [place] [address] Performed By: #### 5 7021-8 ####[facility] LABIA [id number] [place] [address] WBC (Bld) [#/Vol] 4.60 10*3/uL Normal 3.70-11.00 [facility] Comment on above: Order Comment: Speci men Type: BLOOD SPECIMENOrdering Facility: [facility] Address: [address] [place] [address] Performed By: #### 5 7021-8 ####[facility] LABIA [id number] [place] [address] CNOVSPon 02-12-2024 CNOVSP Normal [facility] Cancer Ag19-9 SerPl-aCncon 0 02-12-2024 Cancer Ag 19-9 Qn 371.0 [arb'U]/mL High <36.0 [facility] Comment on above: Order Comment: Speci men Type: BLOOD SPECIMENOrdering Facility: [facility] Address: [address] [place] [address] Result Comment: [facility] er antigen 19-9 test is used as an aid in monitoring response to treatment or recurrence in patients with established pancreatic, hepatobiliary, or gastrointestinal malignancies. Clinical correlation is required.The CA 19-9 Antigen test was performed using the [employer] paramagnetic particle chemiluminescent immunoassay method. Results obtained with different assay methods or kits cannot be used interchangeably. Performed By: #### 2 4108-3 ####[facility] LABCLIA [id number] [address] [place] [address] [place] Comprehensive metabolic 2000 panelOrdered By: Elizabeth Yu on 02-12-2024 Albumin [Mass/Vol] 4.1 g/dL 3.9 - 4.9 g/dL [facility] ALP [Catalytic activity/Vol] 184 U/L High 38 - 113 U/L [facility] ALT [Catalytic activity/Vol] 12 U/L 10 - 54 U/L [facility] Anion gap [Moles/Vol] 11 mmol/L 8 - 15 mmol/L [facility] AST [Catalytic activity/Vol] 12 U/L Low 14 - 40 U/L [facility] Bilirubin [Mass/Vol] 0.7 mg/dL 0.2 - 1 .3 mg/dL [facility] Calcium [Mass/Vol] 10.6 mg/dL High 8.5 - 10. 2 mg/dL [facility] Chloride [Moles/Vol] 104 mmol/L 98 - 10 7 mmol/L [facility] CO2 [Moles/Vol] 23 mmol/L 22 - 30 mmol/L [facility] Creatinine [Mass/Vol] 0.80 mg/dL 0.73 - 1.22 mg/dL [facility] GFR/1.73 sq M.predicted among non-blacks MDRD (S/P/Bld) [Vol rate/Area] 94 mL/min/{1.73_m2} - PINF [facility] Comment on above: Estimated Glomerular [...] 201 mg/dL High 74 - 99 mg/dL [facility] Comment on above: The [place] [employer] (ADA) provides guidance for [...] Standards of Medical Care in Diabetes 2016, [place] [employer]. Diabetes Care. 2016.39(Suppl 1). Interpretation and review of laboratory results Abnormal [facility] Potassium [Moles/Vol] 4.5 mmol/L 3.7 - 5.1 mmol/L [facility] Protein [Mass/Vol] 6.8 g/dL 6.3 - 8.0 g/dL [facility] Sodium [Moles/Vol] 138 mmol/L 136 - 144 mmol/L [facility] Urea nitrogen [Mass/Vol] 12 mg/dL 9 - 24 mg/dL [facility] Comprehensive metabolic 2000 panelon 02-12-2024 Albumin [Mass/Vol] 4.1 g/dL Normal 3.9-4.9 [facility] Comment on above: Order Comment: Noemí hoff Type: BLOOD SPECIMENOrdering Facility: [facility] Address: [address] [place] [address] Performed By: #### 2 4323-8 ####[facility] LABCLIA [id number] [place] [address] ALP [Catalytic activity/Vol] 184 U/L High 38-113 [facility] Comment on above: Order Comment: Noemí hoff Type: BLOOD SPECIMENOrdering Facility: [facility] Address: [address] [place] [address] Performed By: #### 2 4323-8 ####[facility] LABCLIA [id number] [place] [address] ALT [Catalytic activity/Vol] 12 U/L Normal 10-54 [facility] Comment on above: Order Comment: Noemí hoff Type: BLOOD SPECIMENOrdering Facility: [facility] Address: [address] [place] [address] Performed By: #### 2 4323-8 ####[facility] LABCLIA [id number] [place] [address] Anion gap [Moles/Vol] 11 mmol/L Normal 8-15 [facility] Comment on above: Order Comment: Speci men Type: BLOOD SPECIMENOrdering Facility: [facility] Address: [address] [place] [address] Performed By: #### 2 4323-8 ####[facility] LABCLIA [id number] [place] [address] AST [Catalytic activity/Vol] 12 U/L Low 14-40 [facility] Comment on above: Order Comment: Speci men Type: BLOOD SPECIMENOrdering Facility: [facility] Address: [address] [place] [address] Performed By: #### 2 4323-8 ####[facility] LABCLIA [id number] [place] [address] Bilirubin [Mass/Vol] 0.7 mg/dL Normal 0.2-1.3 [facility] Comment on above: Order Comment: Speci men Type: BLOOD SPECIMENOrdering Facility: [facility] Address: [address] [place] [address] Performed By: #### 2 4323-8 ####[facility] LABCLIA [id number] [place] [address] Calcium [Mass/Vol] 10.6 mg/dL High 8.5-10.2 [facility] Comment on above: Order Comment: Speci men Type: BLOOD SPECIMENOrdering Facility: [facility] Address: [address] [place] [address] Performed By: #### 2 4323-8 ####[facility] LABCLIA [id number] [place] [address] Chloride [Moles/Vol] 104 mmol/L Normal 98-107 [facility] Comment on above: Order Comment: Speci men Type: BLOOD SPECIMENOrdering Facility: [facility] Address: [address] [place] [address] Performed By: #### 2 4323-8 ####[facility] LABCLIA [id number] [place] [address] CO2 [Moles/Vol] 23 mmol/L Normal 22-30 [facility] Comment on above: Order Comment: Speci men Type: BLOOD SPECIMENOrdering Facility: [facility] Address: [address] [place] [address] Performed By: #### 2 4323-8 ####[facility] LABCLIA [id number] [place] [address] Creatinine [Mass/Vol] 0.80 mg/dL Normal 0.73-1.22 [facility] Comment on above: Order Comment: Speci men Type: BLOOD SPECIMENOrdering Facility: [facility] Address: [address] [place] [address] Performed By: #### 2 4323-8 ####[facility] LABCLIA [id number] [place] [address] Creatinine and Glomerular filtration rate.predicted panel (S/P/Bld) 94 mL/min/1.73m??? Normal >=60 [facility] Comment on above: Order Comment: Speci men Type: BLOOD SPECIMENOrdering Facility: [facility] Address: [address] [place] [address] Result Comment: Kathy mated Glomerular Filtration Rate [...] actual GFR. Performed By: #### 2 4323-8 ####[facility] LABCLIA [id number] [place] [address] Glucose [Mass/Vol] 201 mg/dL High 74-99 [facility] Comment on above: Order Comment: Speci men Type: BLOOD SPECIMENOrdering Facility: [facility] Address: [address] [place] [address] Result Comment: The [place] Diabetes Association (ADA) provides guidance for cutoff [...] Standards of Medical Care in Diabetes 2016, [place] [employer]. Diabetes Care. 2016.39(Suppl 1). Performed By: #### 2 4323-8 ####[facility] LABCLIA [id number] [place] [address] Potassium [Moles/Vol] 4.5 mmol/L Normal 3.7-5.1 [facility] Comment on above: Order Comment: Speci men Type: BLOOD SPECIMENOrdering Facility: [facility] Address: [address] [place] [address] Performed By: #### 2 4323-8 ####[facility] LABCLIA [id number] [place] [address] Protein [Mass/Vol] 6.8 g/dL Normal 6.3-8.0 [facility] Comment on above: Order Comment: Speci men Type: BLOOD SPECIMENOrdering Facility: [facility] Address: [address] [place] [address] Performed By: #### 2 4323-8 ####[facility] LABCLIA [id number] [place] [address] Sodium [Moles/Vol] 138 mmol/L Normal 136-144 [facility] Comment on above: Order Comment: Speci men Type: BLOOD SPECIMENOrdering Facility: [facility] Address: [address] [place] [address] Performed By: #### 2 4323-8 ####[facility] LABCLIA [id number] [place] [id number] Urea nitrogen [Mass/Vol] 12 mg/dL Normal 9-24 [facility] Comment on above: Order Comment: Speci men Type: BLOOD SPECIMENOrdering Facility: [facility] Address: [address] [place], [place] [address] Performed By: #### 2 4323-8 ####[facility] LABCLIA [id number] [place] [id number] CBC W Auto Differential pane l (Bld)on 01-23-2024 Basophils (Bld) [#/Vol] [facility] Basophils/100 WBC (Bld) 0.4 % [facility] Differential cell count method Nom (Bld) Auto [facility] Eosinophils (Bld) [#/Vol] 0.05 10*3/uL [facility] Eosinophils/100 WBC (Bld) 1.1 % [facility] Erythrocyte distribution width (RBC) [Ratio] 15.8 % High 11.5 - 15.0 % [facility] Hematocrit (Bld) [Volume fraction] 35.1 % Low 39.0 - 51.0 % [facility] Hemoglobin (Bld) [Mass/Vol] 11.5 g/dL Low 13.0 - 17.0 g/dL [facility] Immature granulocytes (Bld) [#/Vol] [facility] Immature granulocytes/100 WBC (Bld) 0.4 % [facility] Interpretation and review of laboratory results Abnormal [facility] Lymphocytes (Bld) [#/Vol] 1.62 10*3/uL [facility] Lymphocytes/100 WBC (Bld) 35.7 % [facility] MCH (RBC) [Entitic mass] 29.9 pg 26.0 - 34.0 pg [facility] MCHC (RBC) [Mass/Vol] 32.8 g/dL 30.5 - 36.0 g/dL [facility] MCV (RBC) [Entitic vol] 91.4 fL 80.0 - 100.0 fL [facility] Monocytes (Bld) [#/Vol] 0.59 10*3/uL [facility] Monocytes/100 WBC (Bld) 13.0 % [facility] Neutrophils (Bld) [#/Vol] 2.24 10*3/uL [facility] Neutrophils/100 WBC (Bld) 49.4 % [facility] Nucleated RBC (Bld) [#/Vol] NINF [facility] Nucleated RBC/100 WBC (Bld) [Ratio] 0.0 % /100 WBC [facility] Platelet mean volume (Bld) [Entitic vol] 9.0 fL 9.0 - 12.7 fL [facility] Platelets (Bld) [#/Vol] 277 10*3/uL [facility] RBC (Bld) [#/Vol] 3.84 10*6/uL Low 4.20 - 6.0 0 m/uL [facility] WBC (Bld) [#/Vol] 4.54 10*3/uL [facility] Basophils (Bld) [#/Vol] 10*3/uL Normal <0.11 [facility] Comment on above: Order Comment: Speci men Type: BLOOD SPECIMENOrdering Facility: [facility] Address: [address] [place] [address] Performed By: #### 5 7021-8 ####[facility] LABCLIA [id number] [place] [address] Basophils/100 WBC (Bld) 0.4 % Normal [facility] Comment on above: Order Comment: Speci men Type: BLOOD SPECIMENOrdering Facility: [facility] Address: [address] [place] [address] Performed By: #### 5 7021-8 ####[facility] LABCLIA [id number] [place] [address] Differential cell count method Nom (Bld) Auto Normal [facility] Comment on above: Order Comment: Speci men Type: BLOOD SPECIMENOrdering Facility: [facility] Address: [address] [place] [address] Performed By: #### 5 7021-8 ####[facility] LABCLIA [id number] [place] [address] Eosinophils (Bld) [#/Vol] 0.05 10*3/uL Normal <0.46 [facility] Comment on above: Order Comment: Speci men Type: BLOOD SPECIMENOrdering Facility: [facility] Address: [address] [place] [address] Performed By: #### 5 7021-8 ####[facility] LABCLIA [id number] [place] [address] Eosinophils/100 WBC (Bld) 1.1 % Normal [facility] Comment on above: Order Comment: Speci men Type: BLOOD SPECIMENOrdering Facility: [facility] Address: [address] [place] [address] Performed By: #### 5 7021-8 ####[facility] LABCLIA [id number] [place] [address] Erythrocyte distribution width (RBC) [Ratio] 15.8 % High 11.5-15.0 [facility] Comment on above: Order Comment: Speci men Type: BLOOD SPECIMENOrdering Facility: [facility] Address: [address] [place] [address] Performed By: #### 5 7021-8 ####[facility] LABCLIA [id number] [place] [address] Hematocrit (Bld) [Volume fraction] 35.1 % Low 39.0-51.0 [facility] Comment on above: Order Comment: Speci men Type: BLOOD SPECIMENOrdering Facility: [facility] Address: [address] [place] [address] Performed By: #### 5 7021-8 ####[facility] LABCLIA [id number] [place] [address] Hemoglobin (Bld) [Mass/Vol] 11.5 g/dL Low 13.0-17.0 [facility] Comment on above: Order Comment: Speci men Type: BLOOD SPECIMENOrdering Facility: [facility] Address: [address] [place] [address] Performed By: #### 5 7021-8 ####[facility] LABCLIA [id number] [place] [address] Immature granulocytes (Bld) [#/Vol] 10*3/uL Normal <0.10 [facility] Comment on above: Order Comment: Speci men Type: BLOOD SPECIMENOrdering Facility: [facility] Address: [address] [place] [address] Performed By: #### 5 7021-8 ####[facility] LABCLIA [id number] [place] [address] Immature granulocytes/100 WBC (Bld) 0.4 % Normal [facility] Comment on above: Order Comment: Speci men Type: BLOOD SPECIMENOrdering Facility: [facility] Address: [address] [place] [address] Performed By: #### 5 7021-8 ####[facility] LABCLIA [id number] [place] [address] Lymphocytes (Bld) [#/Vol] 1.62 10*3/uL Normal 1.00-4.00 [facility] Comment on above: Order Comment: Speci men Type: BLOOD SPECIMENOrdering Facility: [facility] Address: [address] [place] [address] Performed By: #### 5 7021-8 ####[facility] LABCLIA [id number] [place] [address] Lymphocytes/100 WBC (Bld) 35.7 % Normal [facility] Comment on above: Order Comment: Speci men Type: BLOOD SPECIMENOrdering Facility: [facility] Address: [address] [place] [address] Performed By: #### 5 7021-8 ####[facility] LABCLIA [id number] [place] [address] MCH (RBC) [Entitic mass] 29.9 pg Normal 26.0-34.0 [facility] Comment on above: Order Comment: Speci men Type: BLOOD SPECIMENOrdering Facility: [facility] Address: [address] [place] [address] Performed By: #### 5 7021-8 ####[facility] LABCLIA [id number] [place] [address] MCHC (RBC) [Mass/Vol] 32.8 g/dL Normal 30.5-36.0 [facility] Comment on above: Order Comment: Speci men Type: BLOOD SPECIMENOrdering Facility: [facility] Address: [address] [place] [address] Performed By: #### 5 7021-8 ####[facility] LABCLIA [id number] [place] [address] MCV (RBC) [Entitic vol] 91.4 fL Normal 80.0-100.0 [facility] Comment on above: Order Comment: Speci men Type: BLOOD SPECIMENOrdering Facility: [facility] Address: [address] [place] [address] Performed By: #### 5 7021-8 ####[facility] LABCLIA [id number] [place] [address] Monocytes (Bld) [#/Vol] 0.59 10*3/uL Normal <0.87 [facility] Comment on above: Order Comment: Speci men Type: BLOOD SPECIMENOrdering Facility: [facility] Address: [address] [place] [address] Performed By: #### 5 7021-8 ####[facility] LABCLIA [id number] [place] [address] Monocytes/100 WBC (Bld) 13.0 % Normal [facility] Comment on above: Order Comment: Speci men Type: BLOOD SPECIMENOrdering Facility: [facility] Address: [address] [place] [address] Performed By: #### 5 7021-8 ####[facility] LABCLIA [id number] [place] [address] Neutrophils (Bld) [#/Vol] 2.24 10*3/uL Normal 1.45-7.50 [facility] Comment on above: Order Comment: Speci men Type: BLOOD SPECIMENOrdering Facility: [facility] Address: [address] [place] [address] Performed By: #### 5 7021-8 ####[facility] LABCLIA [id number] [place] [address] Neutrophils/100 WBC (Bld) 49.4 % Normal [facility] Comment on above: Order Comment: Speci men Type: BLOOD SPECIMENOrdering Facility: [facility] Address: [address] [place] [address] Performed By: #### 5 7021-8 ####[facility] LABCLIA [id number] [place] [address] Nucleated RBC (Bld) [#/Vol] 10*3/uL Normal <0.01 [facility] Comment on above: Order Comment: Speci men Type: BLOOD SPECIMENOrdering Facility: [facility] Address: [address] [place] [address] Performed By: #### 5 7021-8 ####[facility] LABCLIA [id number] [place] [address] Nucleated RBC/100 WBC (Bld) [Ratio] 0.0 /100 WBC Normal [facility] Comment on above: Order Comment: Speci men Type: BLOOD SPECIMENOrdering Facility: [facility] Address: [address] [place] [address] Performed By: #### 5 7021-8 ####[facility] LABCLIA [id number] [place] [address] Platelet mean volume (Bld) [Entitic vol] 9.0 fL Normal 9.0-12.7 [facility] Comment on above: Order Comment: Speci men Type: BLOOD SPECIMENOrdering Facility: [facility] Address: [address] [place] [address] Performed By: #### 5 7021-8 ####[facility] LABCLIA [id number] [place] [address] Platelets (Bld) [#/Vol] 277 10*3/uL Normal 150-400 [facility] Comment on above: Order Comment: Speci men Type: BLOOD SPECIMENOrdering Facility: [facility] Address: [address] [place] [address] Performed By: #### 5 7021-8 ####[facility] LABIA [id number] [place] [address] RBC (Bld) [#/Vol] 3.84 10*6/uL Low 4.20-6.00 [facility] Comment on above: Order Comment: Speci men Type: BLOOD SPECIMENOrdering Facility: [facility] Address: [address] [place] [address] Performed By: #### 5 7021-8 ####[facility] LABIA [id number] [place] [address] WBC (Bld) [#/Vol] 4.54 10*3/uL Normal 3.70-11.00 [facility] Comment on above: Order Comment: Speci men Type: BLOOD SPECIMENOrdering Facility: [facility] Address: [address] [place] [address] Performed By: #### 5 7021-8 ####[facility] LABIA [id number] [place] [address] CNOVSPon 01-23-2024 CNOVSP Normal [facility] Cancer Ag19-9 SerPl-aCncon 0 01-23-2024 Cancer Ag 19-9 Qn 444.0 [arb'U]/mL High <36.0 [facility] Comment on above: Order Comment: Speci men Type: BLOOD SPECIMENOrdering Facility: [facility] Address: [address] [place] [address] Result Comment: Canc er antigen 19-9 test is used as an aid in monitoring response to treatment or recurrence in patients with established pancreatic, hepatobiliary, or gastrointestinal malignancies. Clinical correlation is required.The CA 19-9 Antigen test was performed using the [employer] DXI paramagnetic particle chemiluminescent immunoassay method. Results obtained with different assay methods or kits cannot be used interchangeably. Performed By: #### 2 4108-3 ####[facility] LABIA [id number] [place] [address] [place] Comprehensive metabolic 2000 panelon 01-23-2024 Albumin [Mass/Vol] 4.0 g/dL Normal 3.9-4.9 [facility] Comment on above: Order Comment: Speci men Type: BLOOD SPECIMENOrdering Facility: [facility] Address: [address] [place] [address] Result Comment: Josh ected result: Previously reported as 4.1 g/dL on 01/23/2024 at 10:24 AM EDT. Performed By: #### 2 4323-8 ####[facility] LABIA [id number] [address] [place] [facility] ALP [Catalytic activity/Vol] 185 U/L High 38-113 [facility] Comment on above: Order Comment: Speci men Type: BLOOD SPECIMENOrdering Facility: [facility] Address: [address] [place] [address] Result Comment: Josh ected result: Previously reported as 190 U/L on 01/23/2024 at 10:24 AM EDT. Performed By: #### 2 4323-8 ####[facility] LABIA [id number] [address] [place] [facility] ALT [Catalytic activity/Vol] 30 U/L Normal 10-54 [facility] Comment on above: Order Comment: Speci men Type: BLOOD SPECIMENOrdering Facility: [facility] Address: [address] [place] [address] Result Comment: Josh ected result: Previously reported as 22 U/L on 01/23/2024 at 10:24 AM EDT. Performed By: #### 2 4323-8 ####[facility] LABCLIA [id number] [place] [address] [place] Anion gap [Moles/Vol] 15 mmol/L Normal 8-15 [facility] Comment on above: Order Comment: Speci men Type: BLOOD SPECIMENOrdering Facility: [facility] Address: [address] [place] [address] Performed By: #### 2 4323-8 ####[facility] LABCLIA [id number] [place] [address] [place] AST [Catalytic activity/Vol] 27 U/L Normal 14-40 [facility] Comment on above: Order Comment: Speci men Type: BLOOD SPECIMENOrdering Facility: [facility] Address: [address] [place] [address] Result Comment: Josh ected result: Previously reported as 16 U/L on 01/23/2024 at 10:24 AM EDT. Performed By: #### 2 4323-8 ####[facility] LABIA [id number] [place] [address] [place] Bilirubin [Mass/Vol] 0.7 mg/dL Normal 0.2-1.3 [facility] Comment on above: Order Comment: Speci men Type: BLOOD SPECIMENOrdering Facility: [facility] Address: [address] [place] [address] Performed By: #### 2 4323-8 ####[facility] LABCLIA [id number] [place] [address] [place] Calcium [Mass/Vol] 10.4 mg/dL High 8.5-10.2 [facility] Comment on above: Order Comment: Speci men Type: BLOOD SPECIMENOrdering Facility: [facility] Address: [address] [place] [address] Result Comment: Josh ected result: Previously reported as 10.5 mg/dL on 01/23/2024 at 10:24 AM EDT. Performed By: #### 2 4323-8 ####[facility] LABCLIA [id number] [place] [address] [place] Chloride [Moles/Vol] 102 mmol/L Normal 98-107 [facility] Comment on above: Order Comment: Speci men Type: BLOOD SPECIMENOrdering Facility: [facility] Address: [address] [place] [address] Result Comment: Resu lt rechecked. Performed By: #### 2 4323-8 ####[facility] LABCLIA [id number] [place] [address] [place] CO2 [Moles/Vol] 21 mmol/L Low 22-30 [facility] Comment on above: Order Comment: Speci men Type: BLOOD SPECIMENOrdering Facility: [facility] Address: [address] [place] [address] Result Comment: Josh ected result: Previously reported as 24 mmol/L on 01/23/2024 at 10:24 AM EDT. Performed By: #### 2 4323-8 ####[facility] LABIA [id number] [place] [address] [place] Creatinine [Mass/Vol] 0.84 mg/dL Normal 0.73-1.22 [facility] Comment on above: Order Comment: Speci men Type: BLOOD SPECIMENOrdering Facility: [facility] Address: [address] [place] [address] Result Comment: Josh ected result: Previously reported as 0.83 mg/dL on 01/23/2024 at 10:24 AM EDT. Performed By: #### 2 4323-8 ####[facility] LABIA [id number] [place] [address] [place] Creatinine and Glomerular filtration rate.predicted panel (S/P/Bld) 93 mL/min/1.73m??? Normal >=60 [facility] Comment on above: Order Comment: Speci men Type: BLOOD SPECIMENOrdering Facility: [facility] Address: [address] [place] [address] Result Comment: Kathy mated Glomerular Filtration Rate [...] actual GFR. Performed By: #### 2 4323-8 ####[facility] LABCLIA [id number] [place] [address] [place] Glucose [Mass/Vol] 144 mg/dL High 74-99 [facility] Comment on above: Order Comment: Noemí hoff Type: BLOOD SPECIMENOrdering Facility: [facility] Address: [address] [place] [address] Result Comment: The [place] [employer] (ADA) provides guidance for cutoff [...] Standards of Medical Care in Diabetes 2016, [place] [employer]. Diabetes Care. 2016.39(Suppl 1).Corrected result: Previously reported as 163 mg/dL on 01/23/2024 at 10:24 AM EDT. Performed By: #### 2 4323-8 ####[facility] LABCLIA [id number] [place] [address] [place] Potassium [Moles/Vol] 4.8 mmol/L Normal 3.7-5.1 [facility] Comment on above: Order Comment: Noemí hoff Type: BLOOD SPECIMENOrdering Facility: [facility] Address: [address] [place] [address] Performed By: #### 2 4323-8 ####[facility] LABCLIA [id number] [place] [address] [place] Protein [Mass/Vol] 7.1 g/dL Normal 6.3-8.0 [facility] Comment on above: Order Comment: Speci men Type: BLOOD SPECIMENOrdering Facility: [facility] Address: [address] [place] [address] Result Comment: Josh ected result: Previously reported as 6.7 g/dL on 01/23/2024 at 10:24 AM EDT. Performed By: #### 2 4323-8 ####[facility] LABIA [id number] [place] [address] [place] Sodium [Moles/Vol] 138 mmol/L Normal 136-144 [facility] Comment on above: Order Comment: Speci men Type: BLOOD SPECIMENOrdering Facility: [facility] Address: [address] [place] [address] Result Comment: Resu lt rechecked. Performed By: #### 2 4323-8 ####[facility] LABIA [id number] [place] [address] [place] Urea nitrogen [Mass/Vol] 12 mg/dL Normal 9-24 [facility] Comment on above: Order Comment: Speci men Type: BLOOD SPECIMENOrdering Facility: [facility] Address: [address] [place] [address] Performed By: #### 2 4323-8 ####[facility] LABIA [id number] [place] [address] [place] CA 19-9on 01-04-2024 Cancer Ag 19-9 Qn 290.0 [arb'U]/mL High NINF - 36.0 U/mL [facility] Comment on above: Cancer antigen [...] be used interchangeably. CNPNon 01-04-2024 CNPN Normal [facility] Cancer Ag 19-9 Qnon 01-04-20 24 Interpretation and review of laboratory results Abnormal [facility] CBC W Auto Differential pane l (Bld)on 01-03-2024 Basophils (Bld) [#/Vol] [facility] Basophils/100 WBC (Bld) 0.4 % [facility] Differential cell count method Nom (Bld) Auto [facility] Eosinophils (Bld) [#/Vol] 0.05 10*3/uL [facility] Eosinophils/100 WBC (Bld) 1.0 % [facility] Erythrocyte distribution width (RBC) [Ratio] 15.8 % High 11.5 - 15.0 % [facility] Hematocrit (Bld) [Volume fraction] 33.7 % Low 39.0 - 51.0 % [facility] Hemoglobin (Bld) [Mass/Vol] 11.1 g/dL Low 13.0 - 17.0 g/dL [facility] Immature granulocytes (Bld) [#/Vol] 0.03 10*3/uL [facility] Immature granulocytes/100 WBC (Bld) 0.6 % [facility] Interpretation and review of laboratory results Abnormal [facility] Lymphocytes (Bld) [#/Vol] 1.69 10*3/uL [facility] Lymphocytes/100 WBC (Bld) 32.4 % [facility] MCH (RBC) [Entitic mass] 30.3 pg 26.0 - 34.0 pg [facility] MCHC (RBC) [Mass/Vol] 32.9 g/dL 30.5 - 36.0 g/dL [facility] MCV (RBC) [Entitic vol] 92.1 fL 80.0 - 100.0 fL [facility] Monocytes (Bld) [#/Vol] 0.79 10*3/uL [facility] Monocytes/100 WBC (Bld) 15.1 % [facility] Neutrophils (Bld) [#/Vol] 2.64 10*3/uL [facility] Neutrophils/100 WBC (Bld) 50.5 % [facility] Nucleated RBC (Bld) [#/Vol] NINF [facility] Nucleated RBC/100 WBC (Bld) [Ratio] 0.0 % /100 WBC [facility] Platelet mean volume (Bld) [Entitic vol] 9.4 fL 9.0 - 12.7 fL [facility] Platelets (Bld) [#/Vol] 288 10*3/uL [facility] RBC (Bld) [#/Vol] 3.66 10*6/uL Low 4.20 - 6.0 0 m/uL [facility] WBC (Bld) [#/Vol] 5.22 10*3/uL [facility] Basophils (Bld) [#/Vol] 10*3/uL Normal <0.11 [facility] Comment on above: Order Comment: Speci men Type: BLOOD SPECIMENOrdering Facility: [facility] Address: [address] [place] [address] Performed By: #### 5 7021-8 ####[facility] LABCLIA [id number] [place] [address] Basophils/100 WBC (Bld) 0.4 % Normal [facility] Comment on above: Order Comment: Speci men Type: BLOOD SPECIMENOrdering Facility: [facility] Address: [address] [place] [address] Performed By: #### 5 7021-8 ####[facility] LABCLIA [id number] [place] [address] Differential cell count method Nom (Bld) Auto Normal [facility] Comment on above: Order Comment: Speci men Type: BLOOD SPECIMENOrdering Facility: [facility] Address: [address] [place] [address] Performed By: #### 5 7021-8 ####[facility] LABCLIA [id number] [place] [address] Eosinophils (Bld) [#/Vol] 0.05 10*3/uL Normal <0.46 [facility] Comment on above: Order Comment: Speci men Type: BLOOD SPECIMENOrdering Facility: [facility] Address: [address] [place] [address] Performed By: #### 5 7021-8 ####[facility] LABCLIA [id number] [place] [address] Eosinophils/100 WBC (Bld) 1.0 % Normal [facility] Comment on above: Order Comment: Speci men Type: BLOOD SPECIMENOrdering Facility: [facility] Address: [address] [place] [address] Performed By: #### 5 7021-8 ####[facility] LABCLIA [id number] [place] [address] Erythrocyte distribution width (RBC) [Ratio] 15.8 % High 11.5-15.0 [facility] Comment on above: Order Comment: Speci men Type: BLOOD SPECIMENOrdering Facility: [facility] Address: [address] [place] [address] Performed By: #### 5 7021-8 ####[facility] LABCLIA [id number] [place] [address] Hematocrit (Bld) [Volume fraction] 33.7 % Low 39.0-51.0 [facility] Comment on above: Order Comment: Speci men Type: BLOOD SPECIMENOrdering Facility: [facility] Address: [address] [place] [address] Performed By: #### 5 7021-8 ####[facility] LABCLIA [id number] [place] [address] Hemoglobin (Bld) [Mass/Vol] 11.1 g/dL Low 13.0-17.0 [facility] Comment on above: Order Comment: Speci men Type: BLOOD SPECIMENOrdering Facility: [facility] Address: [address] [place] [address] Performed By: #### 5 7021-8 ####[facility] LABCLIA [id number] [place] [address] Immature granulocytes (Bld) [#/Vol] 0.03 10*3/uL Normal <0.10 [facility] Comment on above: Order Comment: Speci men Type: BLOOD SPECIMENOrdering Facility: [facility] Address: [address] [place] [address] Performed By: #### 5 7021-8 ####[facility] LABCLIA [id number] [place] [address] Immature granulocytes/100 WBC (Bld) 0.6 % Normal [facility] Comment on above: Order Comment: Speci men Type: BLOOD SPECIMENOrdering Facility: [facility] Address: [address] [place] [address] Performed By: #### 5 7021-8 ####[facility] LABCLIA [id number] [place] [address] Lymphocytes (Bld) [#/Vol] 1.69 10*3/uL Normal 1.00-4.00 [facility] Comment on above: Order Comment: Speci men Type: BLOOD SPECIMENOrdering Facility: [facility] Address: [address] [place] [address] Performed By: #### 5 7021-8 ####[facility] LABCLIA [id number] [place] [address] Lymphocytes/100 WBC (Bld) 32.4 % Normal [facility] Comment on above: Order Comment: Speci men Type: BLOOD SPECIMENOrdering Facility: [facility] Address: [address] [place] [address] Performed By: #### 5 7021-8 ####[facility] LABCLIA [id number] [place] [address] MCH (RBC) [Entitic mass] 30.3 pg Normal 26.0-34.0 [facility] Comment on above: Order Comment: Speci men Type: BLOOD SPECIMENOrdering Facility: [facility] Address: [address] [place] [address] Performed By: #### 5 7021-8 ####[facility] LABCLIA [id number] [place] [address] MCHC (RBC) [Mass/Vol] 32.9 g/dL Normal 30.5-36.0 [facility] Comment on above: Order Comment: Speci men Type: BLOOD SPECIMENOrdering Facility: [facility] Address: [address] [place] [address] Performed By: #### 5 7021-8 ####[facility] LABCLIA [id number] [place] [address] MCV (RBC) [Entitic vol] 92.1 fL Normal 80.0-100.0 [facility] Comment on above: Order Comment: Speci men Type: BLOOD SPECIMENOrdering Facility: [facility] Address: [address] [place] [address] Performed By: #### 5 7021-8 ####[facility] LABCLIA [id number] [place] [address] Monocytes (Bld) [#/Vol] 0.79 10*3/uL Normal <0.87 [facility] Comment on above: Order Comment: Speci men Type: BLOOD SPECIMENOrdering Facility: [facility] Address: [address] [place] [address] Performed By: #### 5 7021-8 ####[facility] LABCLIA [id number] [place] [address] Monocytes/100 WBC (Bld) 15.1 % Normal [facility] Comment on above: Order Comment: Speci men Type: BLOOD SPECIMENOrdering Facility: [facility] Address: [address] [place] [address] Performed By: #### 5 7021-8 ####[facility] LABCLIA [id number] [place] [address] Neutrophils (Bld) [#/Vol] 2.64 10*3/uL Normal 1.45-7.50 [facility] Comment on above: Order Comment: Speci men Type: BLOOD SPECIMENOrdering Facility: [facility] Address: [address] [place] [address] Performed By: #### 5 7021-8 ####[facility] LABCLIA [id number] [place] [address] Neutrophils/100 WBC (Bld) 50.5 % Normal [facility] Comment on above: Order Comment: Speci men Type: BLOOD SPECIMENOrdering Facility: [facility] Address: [address] [place] [address] Performed By: #### 5 7021-8 ####[facility] LABCLIA [id number] [place] [address] Nucleated RBC (Bld) [#/Vol] 10*3/uL Normal <0.01 [facility] Comment on above: Order Comment: Speci men Type: BLOOD SPECIMENOrdering Facility: [facility] Address: [address] [place] [address] Performed By: #### 5 7021-8 ####[facility] LABCLIA [id number] [place] [address] Nucleated RBC/100 WBC (Bld) [Ratio] 0.0 /100 WBC Normal [facility] Comment on above: Order Comment: Speci men Type: BLOOD SPECIMENOrdering Facility: [facility] Address: [address] [place] [address] Performed By: #### 5 7021-8 ####[facility] LABCLIA [id number] [place] [address] Platelet mean volume (Bld) [Entitic vol] 9.4 fL Normal 9.0-12.7 [facility] Comment on above: Order Comment: Speci men Type: BLOOD SPECIMENOrdering Facility: [facility] Address: [address] [place] [address] Performed By: #### 5 7021-8 ####[facility] LABCLIA [id number] [place] [address] Platelets (Bld) [#/Vol] 288 10*3/uL Normal 150-400 [facility] Comment on above: Order Comment: Speci men Type: BLOOD SPECIMENOrdering Facility: [facility] Address: [address] [place] [address] Performed By: #### 5 7021-8 ####[facility] LABIA [id number] [place] [address] RBC (Bld) [#/Vol] 3.66 10*6/uL Low 4.20-6.00 [facility] Comment on above: Order Comment: Speci men Type: BLOOD SPECIMENOrdering Facility: [facility] Address: [address] [place] [address] Performed By: #### 5 7021-8 ####[facility] LABIA [id number] [place] [address] WBC (Bld) [#/Vol] 5.22 10*3/uL Normal 3.70-11.00 [facility] Comment on above: Order Comment: Speci men Type: BLOOD SPECIMENOrdering Facility: [facility] Address: [address] [place] [address] Performed By: #### 5 7021-8 ####[facility] LABIA [id number] [place] [address] CNOVSPon 01-03-2024 CNOVSP Normal [facility] Cancer Ag19-9 SerPl-aCncon 0 01-03-2024 Cancer Ag 19-9 Qn 290.0 [arb'U]/mL High <36.0 C [facility] Comment on above: Order Comment: Speci men Type: BLOOD SPECIMENOrdering Facility: [facility] Address: [address] [place] [address] Result Comment: [facility] er antigen 19-9 test is used [...] used interchangeably. Performed By: #### 2 4108-3 ####[facility] LABCLIA [id number] [place] [address] [place] Comprehensive metabolic 2000 panelOrdered By: Elizabeth Yu on 01-03-2024 Albumin [Mass/Vol] 3.9 g/dL 3.9 - 4.9 g/dL [facility] ALP [Catalytic activity/Vol] 175 U/L High 38 - 113 U/L [facility] ALT [Catalytic activity/Vol] 14 U/L 10 - 54 U/L [facility] Anion gap [Moles/Vol] 6 mmol/L Low 8 - 15 mmol/L [facility] AST [Catalytic activity/Vol] 13 U/L Low 14 - 40 U/L [facility] Bilirubin [Mass/Vol] 0.5 mg/dL 0.2 - 1 .3 mg/dL [facility] Calcium [Mass/Vol] 10.3 mg/dL High 8.5 - 10. 2 mg/dL [facility] Chloride [Moles/Vol] 103 mmol/L 98 - 10 7 mmol/L [facility] CO2 [Moles/Vol] 26 mmol/L 22 - 30 mmol/L [facility] Creatinine [Mass/Vol] 0.85 mg/dL 0.73 - 1.22 mg/dL [facility] GFR/1.73 sq M.predicted among non-blacks MDRD (S/P/Bld) [Vol rate/Area] 92 mL/min/{1.73_m2} - PINF [facility] Comment on above: Estimated Glomerular [...] 169 mg/dL High 74 - 99 mg/dL [facility] Comment on above: The [place] Diab[employer] Association (ADA) provides guidance for [...] Standards of Medical Care in Diabetes 2016, [place] [employer] Association. Diabetes Care. 2016.39(Suppl 1). Interpretation and review of laboratory results Abnormal [facility] Potassium [Moles/Vol] 4.4 mmol/L 3.7 - 5.1 mmol/L [facility] Protein [Mass/Vol] 6.8 g/dL 6.3 - 8.0 g/dL [facility] Sodium [Moles/Vol] 135 mmol/L Low 136 - 144 mmol/L [facility] Urea nitrogen [Mass/Vol] 16 mg/dL 9 - 24 mg/dL [facility] Comprehensive metabolic 2000 panelon 01-03-2024 Albumin [Mass/Vol] 3.9 g/dL Normal 3.9-4.9 [facility] Comment on above: Order Comment: Speci men Type: BLOOD SPECIMENOrdering Facility: [facility] Address: [address] [place] [address] Performed By: #### 2 4323-8 ####[facility] LABCLIA [id number] [place] [address] ALP [Catalytic activity/Vol] 175 U/L High 38-113 [facility] Comment on above: Order Comment: Speci men Type: BLOOD SPECIMENOrdering Facility: [facility] Address: [address] [place] [address] Performed By: #### 2 4323-8 ####[facility] LABCLIA [id number] [place] [address] ALT [Catalytic activity/Vol] 14 U/L Normal 10-54 [facility] Comment on above: Order Comment: Speci men Type: BLOOD SPECIMENOrdering Facility: [facility] Address: [address] [id number] Performed By: #### 2 4323-8 ####[facility] LABCLIA [id number] [place] [address] Anion gap [Moles/Vol] 6 mmol/L Low 8-15 [facility] Comment on above: Order Comment: Speci men Type: BLOOD SPECIMENOrdering Facility: [facility] Address: [address] [place] [address] Performed By: #### 2 4323-8 ####[facility] LABCLIA [id number] [place] [address] AST [Catalytic activity/Vol] 13 U/L Low 14-40 [facility] Comment on above: Order Comment: Speci men Type: BLOOD SPECIMENOrdering Facility: [facility] Address: [address] [place] [address] Performed By: #### 2 4323-8 ####[facility] LABCLIA [id number] [place] [address] Bilirubin [Mass/Vol] 0.5 mg/dL Normal 0.2-1.3 [facility] Comment on above: Order Comment: Speci men Type: BLOOD SPECIMENOrdering Facility: [facility] Address: [address] [place] [address] Performed By: #### 2 4323-8 ####[facility] LABCLIA [id number] [place] [address] Calcium [Mass/Vol] 10.3 mg/dL High 8.5-10.2 [facility] Comment on above: Order Comment: Speci men Type: BLOOD SPECIMENOrdering Facility: [facility] Address: [address] [place], [place] [address] Performed By: #### 2 4323-8 ####[facility] LABCLIA [id number] [place] [address] Chloride [Moles/Vol] 103 mmol/L Normal 98-107 [facility] Comment on above: Order Comment: Speci men Type: BLOOD SPECIMENOrdering Facility: [facility] Address: [address] [place] [address] Performed By: #### 2 4323-8 ####[facility] LABCLIA [id number] [place] [address] CO2 [Moles/Vol] 26 mmol/L Normal 22-30 [facility] Comment on above: Order Comment: Speci men Type: BLOOD SPECIMENOrdering Facility: [facility] Address: [address] [place] [address] Performed By: #### 2 4323-8 ####[facility] LABCLIA [id number] [place] [address] Creatinine [Mass/Vol] 0.85 mg/dL Normal 0.73-1.22 [facility] Comment on above: Order Comment: Speci men Type: BLOOD SPECIMENOrdering Facility: [facility] Address: [address] [place] [address] Performed By: #### 2 4323-8 ####[facility] LABCLIA [id number] [place] [address] Creatinine and Glomerular filtration rate.predicted panel (S/P/Bld) 92 mL/min/1.73m??? Normal >=60 [facility] Comment on above: Order Comment: Speci men Type: BLOOD SPECIMENOrdering Facility: [facility] Address: [address] [place] [address] Result Comment: Kathy mated Glomerular Filtration Rate [...] actual GFR. Performed By: #### 2 4323-8 ####[facility] LABCLIA [id number] [place] [address] Glucose [Mass/Vol] 169 mg/dL High 74-99 [facility] Comment on above: Order Comment: Speci men Type: BLOOD SPECIMENOrdering Facility: [facility] Address: [address] [place] [address] Result Comment: The [place] Diabetes Association (ADA) provides guidance for cutoff [...] Standards of Medical Care in Diabetes 2016, [place] Diabetes Association. Diabetes Care. 2016.39(Suppl 1). Performed By: #### 2 4323-8 ####[facility] LABCLIA [id number] [place] [address] Potassium [Moles/Vol] 4.4 mmol/L Normal 3.7-5.1 [facility] Comment on above: Order Comment: Speci men Type: BLOOD SPECIMENOrdering Facility: [facility] Address: [address] [place] [address] Performed By: #### 2 4323-8 ####[facility] LABCLIA [id number] [place] [address] Protein [Mass/Vol] 6.8 g/dL Normal 6.3-8.0 [facility] Comment on above: Order Comment: Speci men Type: BLOOD SPECIMENOrdering Facility: [facility] Address: [address] [place] [address] Performed By: #### 2 4323-8 ####[facility] LABCLIA [id number] [place] [address] Sodium [Moles/Vol] 135 mmol/L Low 136-144 [facility] Comment on above: Order Comment: Speci men Type: BLOOD SPECIMENOrdering Facility: [facility] Address: [address] [place] [address] Performed By: #### 2 4323-8 ####[facility] LABCLIA [id number] [place] [address] Urea nitrogen [Mass/Vol] 16 mg/dL Normal 9-24 [facility] Comment on above: Order Comment: Speci men Type: BLOOD SPECIMENOrdering Facility: [facility] Address: [address] [place] [address] Performed By: #### 2 4323-8 ####[facility] LABCLIA [id number] [place] [address] CNPNon 01-02-2024 CNPN Normal [facility] [id number] 12-29-2023 [id number] HNO ID: [id number] Author: AYAH HOWE RN Service: ? Author Type: Registered Nurse Type: [id number] Filed: 12/29/2023 12:32 Note Text: After Placement [...] follow up with your ordering physician for termite control technician, regular maintenance of your port. [facility] Imaging and Radiology Service [facility] 7:30 AM to 4:30 PM [phone] After hours/weekends: call your primary care physician or go to the ED [facility] 7:30 AM to 4:00 PM [phone]: or [phone] After hours/weekends: For interventional radiology: call the interventional radiologist tester electronic scale , ask for pager [phone] For all other radiology calls: call the radiologist tester electronic scale , ask for pager [phone] [facility] 8:00 AM to 5:00 PM [phone] After hours/weekends: call your primary care physician or go to the ED [facility] 9:00 AM to 5:00 PM [phone] After hours/weekends: call your primary care physician or go to the ED [facility] 8:00 AM to 5:00 PM [phone] After hours/weekends: call your primary care physician or go to the ED [facility] 7:00 AM to 4:30 PM [phone] After hours/weekends: call your primary care physician or go to the ED [facility] 7:00 AM to 3:30 PM [phone] After hours/weekends: call your prim (more content not included)... Normal [facility] BRIEF OP NOTon 12-29-2023 BRIEF OP NOT HNO ID: [id number] Author: JHONNY MORGAN MD Service: Radiology Author Type: Physician Type: Brief Op Note Filed: 12/29/2023 12:08 Note Text: OPERATIVE/PROCEDURE REPORT LOG ID: [id number] SURGERY/PROCEDURE DATE: 12/29/2023 INCISION/PROCEDURE START TIME: 10:59 AM INCISION CLOSE/PROCEDURE END TIME: 11:48 AM SURGEON(S)/PROCEDURALIST( S) AND CHURCH WARDEN(S): Surgeon(s) and Role: * Jhonny Morgan MD [...] Implant Name Type Inv. Item Serial No. Oncologist Lot No. LRB No. Used Action POWER PORT 8F SINGLE LUMEN VENOUS Port [employer] [id number] Left 1 Implanted DRAINS: None COMPLICATIONS: None CLOSURE TECHNIQUE: Primary PARTICIPATION IN SURGERY/PROCEDURE: I/primary surgeon/proceduralist performed the procedure with assistance. SIGNATURE: Jhonny Morgan MD PATIENT NAME: Trinity Perry DATE: December 29, 2023 TIME: 12:06 PM [facility] HISTORY PHYSICALon HISTORY PHYSICAL HNO ID: [id number] Author: JHONNY MORGAN MD Service: Radiology Author [...] [facility]NELED W/PORT REMOV [facility] 12-29-2023 IR CVC TUNNELED W/PORT REMOVAL * * *Final Report* * * DATE OF EXAM: Dec 29 2023 12:03PM [facility] 7473 - IR CVC TUNNELED W/PORT REMOVAL [...] was made at (more content not included)... Normal [facility] IR ADELAIDA VILLASENOR CVA PLACEon IR ADELAIDA [address] CVA PLACE * * *Final Report* * * DATE OF EXAM: Dec 29 2023 12:03PM [facility] 7444 - IR ADELAIDA VILLASENOR CVA PLACE / PROCEDURE REASON: Central line [...] lidocaine ANTIBIOTICS: Ancef Antibiotic infusion start time: 1016 CONTRAST DOSE: None IMAGE GUIDANCE: Fluoroscopic and [...] DATE OF EXAM: Dec 29 2023 12:03PM [facility] 8966 - IR PORTOCATH PLACEMENT / PROCEDURE [...] lidocaine ANTIBIOTICS: Ancef Antibiotic infusion start time: 1016 CONTRAST DOSE: None IMAGE GUIDANCE: Fluoroscopic and [...] at the sit (more content not included)... [facility] IR US VASCULAR ACCESS GUIDEo n 12-29-2023 IR US VASCULAR ACCESS GUIDE * * *Final Report* * * DATE OF EXAM: Dec 29 2023 12:03PM [facility] 7765 - IR US VASCULAR ACCESS GUIDE / PROCEDURE REASON: Central [...] NURSING PROGon 12-29-2023 NURSING PROG HNO ID: [id number] Author: SUNNY PAULA RN Service: Nursing Author Type: Registered Nurse Type: Nursing Progress Note Filed: 12/29/2023 10:51 Note Text: PATIENT EDUCATION TOPIC: PROCEDURE / SURGERY: Procedure/Surgery: Port removal and replacement PATIENT NAME: Trinity Perry PATIENT LOCATION: Rad Proc/AV Rad Proc READINESS TO LEARN [...] Speci men Type: TISSUE SPECIMEN [facility] Address: [address] [place] [address] Result Comment: Surg ical Pathology Report Case: [id number] Authorizing Provider: Cathy, Collected: 12/29/2023 11:43 AM MD Jhonny Ordering Location: [facility] Radiology Received: 12/29/2023 12:40 PM Procedure Pathologist: Sha Reyes MD Specimen: Hardware/Device/Foreign Body Performed By: #### S #### [facility] CLIA [id number] [address] [place] [address] [place] CLINICAL HISTORY Potentially leaking catheter in a venous ported catheter [facility] Comment on above: Order Comment: Speci men Type: TISSUE SPECIMEN [facility] Address: [address] [place] [address] Performed By: #### S #### [facility] CLIA [id number] [address] [place] [address] [place] FINAL DIAGNOSIS [place] [facility] Comment on above: Order Comment: Speci men Type: TISSUE SPECIMEN Ordering Facility: [facility] Address: [address] [place] [address] Result Comment: A. U nspecified site, device removal: -Mediport with attached catheter (gross examination only). KOURTNEY/RSA 01/01/2024 Performed By: #### S #### [facility] CLIA [id number] [address] [place] [address] OF [facility] FINAL PERFORMING LAB [facility] Comment on above: Order Comment: Speci men Type: TISSUE SPECIMEN Ordering Facility: [facility] Address: [address] [place] [address] Result Comment: Diag nostic interpretation performed at [facility], [address] [place] [address] CLIA# [id number] Electrical Linesworker: Gilbert Gray M.D. Performed By: #### S #### [facility] CLIA [id number] [address] [place] [address] OF [place]HA GROSS DESCRIPTION [facility] Comment on above: Order Comment: Speci men Type: TISSUE SPECIMEN Ordering Facility: [facility] Address: [address] [place] [address] Result Comment: A. H ardware/Device/Foreign Body Received fresh labeled hardware/device/foreign body is a Mediport (2.8 x 2.4 x 1.6 cm) with attached catheter (23 cm in length by 0.3 cm in diameter). The following inscription is noted CT Bard 2303 . No tissue is present or submitted. This case is reviewed with Dr. Ballesteros. Gross examination only. Gross examination performed at [facility], [address] [place] [address] CLIA#[id number] RSA January 01, 2024 11:39 AM Performed By: #### S #### [facility] CLIA [id number] [address] [place] [address] [place] CNPNon 12-27-2023 CNPN Telephone (AVXRPR) ----- TRINITY PERRY ([id number]) 1950 M Date Time Provider Department 12/27/23 ADINA SCHMITZ AVXRNILS During your visit today, we recorded the following information about you: Adina Schmitz, RN 12/27/2023 12:17 PM Signed You are scheduled for a Port Removal, On 12/29/2023. You are to arrive at 09:00 am and Report to [facility]: [facility]: Radiology Outpatient Desk [id number] You can expect to be here for [...] Labs: Lab-work needs to be drawn? No.. 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 Private car. You will need a responsible adult to accompany you to and from the procedure. Your pick up driver is required to stay with you until you are taken into the procedure room. _ Allergies As of Date: 12/27/2023 (No Known Allergies) Date Reviewed: 12/13/2023 Reviewed by: Greta Wetzel PA-C - Fully Assessed Reason for Visit: Radiology Pre Procedure Instructions [1506] Prescriptions as of 12/27/2023 - midodrine (PROAMATINE) [...] [A41.9] 03/09/2020 03/13/2020 Postprocedural intraabdominal abscess [T81.43XA*03/20/2020 long-term current use of anticoagulant [Z79.01] 04/07/2020 Deep [...] Encounter Status:Closed by ADINA SCHMITZ on 12/27/23 [facility] 12-26-2023 [facility] Telephone (AVXRPR) ----- TRINITY PERRY ([id number]) 1950 M Date Time Provider Department 12/26/23 LUISA CAMERON AVXRPR During your visit today, we recorded the following information about you: Luisa Cameron, LUIS ANTONIO 12/26/2023 11:19 AM Signed Called pt unable to leave message at Home #. Left message non detailed message on Cell phone to call back to Radiology Office # Allergies As of Date: 12/26/2023 (No Known Allergies) Date Reviewed: 12/13/2023 Reviewed by: Greta Wetzel PAShad - Fully Assessed Reason for Visit: Radiology [...] [A41.9] 03/09/2020 03/13/2020 Postprocedural intraabdominal abscess [T81.43XA*03/20/2020 long-term current use of anticoagulant [Z79.01] 04/07/2020 Deep [...] Encounter Status:Closed by [facility] Telephone ([facility]) ----- TRINITY PERRY ([id number]) 1950 M Date Time Provider Department 12/25/23 DONNELL SWENSON [facility] During your visit today, we recorded the following information about you: Allergies As of Date: 12/25/2023 (No Known Allergies) Date Reviewed: 12/13/2023 Reviewed by: Greta Wetzel PALaurenC - Fully Assessed Prescriptions as of 12/25/2023 [...] [A41.9] 03/09/2020 03/13/2020 Postprocedural intraabdominal abscess [T81.43XA*03/20/2020 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 [Z79.01] 04/07/2020 Deep [...] Encounter Status:Closed by DONNELL SWENSON on 12/25/23 Normal [facility] CBC W Auto Differential pane l (Bld)on 12-11-2023 Basophils (Bld) [#/Vol] [facility] Basophils/100 WBC (Bld) 0.4 % [facility] Differential cell count method Nom (Bld) Auto [facility] Eosinophils (Bld) [#/Vol] 0.04 10*3/uL [facility] Eosinophils/100 WBC (Bld) 0.8 % [facility] Erythrocyte distribution width (RBC) [Ratio] 16.3 % High 11.5 - 15.0 % [facility] Hematocrit (Bld) [Volume fraction] 34.5 % Low 39.0 - 51.0 % [facility] Hemoglobin (Bld) [Mass/Vol] 11.0 g/dL Low 13.0 - 17.0 g/dL [facility] Immature granulocytes (Bld) [#/Vol] [facility] Immature granulocytes/100 WBC (Bld) 0.4 % [facility] Interpretation and review of laboratory results Abnormal [facility] Lymphocytes (Bld) [#/Vol] 1.76 10*3/uL [facility] Lymphocytes/100 WBC (Bld) 35.3 % [facility] MCH (RBC) [Entitic mass] 30.0 pg 26.0 - 34.0 pg [facility] MCHC (RBC) [Mass/Vol] 31.9 g/dL 30.5 - 36.0 g/dL [facility] MCV (RBC) [Entitic vol] 94.0 fL 80.0 - 100.0 fL [facility] Monocytes (Bld) [#/Vol] 0.70 10*3/uL [facility] Monocytes/100 WBC (Bld) 14.1 % [facility] Neutrophils (Bld) [#/Vol] 2.44 10*3/uL [facility] Neutrophils/100 WBC (Bld) 49.0 % [facility] Nucleated RBC (Bld) [#/Vol] [facility] Nucleated RBC/100 WBC (Bld) [Ratio] 0.0 % /100 WBC [facility] Platelet mean volume (Bld) [Entitic vol] 9.5 fL 9.0 - 12.7 fL [facility] Platelets (Bld) [#/Vol] 266 10*3/uL [facility] RBC (Bld) [#/Vol] 3.67 10*6/uL Low 4.20 - 6.0 0 m/uL [facility] WBC (Bld) [#/Vol] 4.98 10*3/uL [facility] Basophils (Bld) [#/Vol] 10*3/uL Normal <0.11 [facility] Comment on above: Order Comment: Speci men Type: BLOOD SPECIMENOrdering Facility: [facility] Address: [address] [place] [address] Performed By: #### 5 7021-8 ####[facility] [id number] [place] [address] Basophils/100 WBC (Bld) 0.4 % Normal [facility] Comment on above: Order Comment: Speci men Type: BLOOD SPECIMENOrdering Facility: [facility] Address: [address] [place] [address] Performed By: #### 5 7021-8 ####[facility] [id number] [place] [address] Differential cell count method Nom (Bld) Auto Normal [facility] Comment on above: Order Comment: Speci men Type: BLOOD SPECIMENOrdering Facility: [facility] Address: [address] [place] [address] Performed By: #### 5 7021-8 ####[facility] [id number] [place] [address] Eosinophils (Bld) [#/Vol] 0.04 10*3/uL Normal <0.46 [facility] Comment on above: Order Comment: Speci men Type: BLOOD SPECIMENOrdering Facility: [facility] Address: [address] [place] [address] Performed By: #### 5 7021-8 ####[facility] [id number] [place] [address] Eosinophils/100 WBC (Bld) 0.8 % Normal [facility] Comment on above: Order Comment: Speci men Type: BLOOD SPECIMENOrdering Facility: [facility] Address: [address] [place] [address] Performed By: #### 5 7021-8 ####[facility] [id number] [place] [address] Erythrocyte distribution width (RBC) [Ratio] 16.3 % High 11.5-15.0 [facility] Comment on above: Order Comment: Speci men Type: BLOOD SPECIMENOrdering Facility: [facility] Address: [address] [place] [address] Performed By: #### 5 7021-8 ####[facility] [id number] [place] [address] Hematocrit (Bld) [Volume fraction] 34.5 % Low 39.0-51.0 [facility] Comment on above: Order Comment: Speci men Type: BLOOD SPECIMENOrdering Facility: [facility] Address: [address] [place] [address] Performed By: #### 5 7021-8 ####[facility] [id number] [place] [address] Hemoglobin (Bld) [Mass/Vol] 11.0 g/dL Low 13.0-17.0 [facility] Comment on above: Order Comment: Speci men Type: BLOOD SPECIMENOrdering Facility: [facility] Address: [address] [place] [address] Performed By: #### 5 7021-8 ####[facility] [id number] [place] [address] Immature granulocytes (Bld) [#/Vol] 10*3/uL Normal <0.10 [facility] Comment on above: Order Comment: Speci men Type: BLOOD SPECIMENOrdering Facility: [facility] Address: [address] [place] [address] Performed By: #### 5 7021-8 ####[facility] [id number] [place] [address] Immature granulocytes/100 WBC (Bld) 0.4 % Normal [facility] Comment on above: Order Comment: Speci men Type: BLOOD SPECIMENOrdering Facility: [facility] Address: [address] [place] [address] Performed By: #### 5 7021-8 ####[facility] [id number] [place] [address] Lymphocytes (Bld) [#/Vol] 1.76 10*3/uL Normal 1.00-4.00 [facility] Comment on above: Order Comment: Speci men Type: BLOOD SPECIMENOrdering Facility: [facility] Address: [address] [place] [address] Performed By: #### 5 7021-8 ####[facility] [id number] [place] [address] Lymphocytes/100 WBC (Bld) 35.3 % Normal [facility] Comment on above: Order Comment: Speci men Type: BLOOD SPECIMENOrdering Facility: [facility] Address: [address] [place] [address] Performed By: #### 5 7021-8 ####[facility] [id number] [place] [address] MCH (RBC) [Entitic mass] 30.0 pg Normal 26.0-34.0 [facility] Comment on above: Order Comment: Speci men Type: BLOOD SPECIMENOrdering Facility: [facility] Address: [address] [place] [address] Performed By: #### 5 7021-8 ####[facility] [id number] [place] [address] MCHC (RBC) [Mass/Vol] 31.9 g/dL Normal 30.5-36.0 [facility] Comment on above: Order Comment: Speci men Type: BLOOD SPECIMENOrdering Facility: [facility] Address: [address] [place] [address] Performed By: #### 5 7021-8 ####[facility] [id number] [place] [address] MCV (RBC) [Entitic vol] 94.0 fL Normal 80.0-100.0 [facility] Comment on above: Order Comment: Speci men Type: BLOOD SPECIMENOrdering Facility: [facility] Address: [address] [place] [address] Performed By: #### 5 7021-8 ####[facility] [id number] [place] [address] Monocytes (Bld) [#/Vol] 0.70 10*3/uL Normal <0.87 [facility] Comment on above: Order Comment: Speci men Type: BLOOD SPECIMENOrdering Facility: [facility] Address: [address] [place] [address] Performed By: #### 5 7021-8 ####[facility] [id number] [place] [address] Monocytes/100 WBC (Bld) 14.1 % Normal [facility] Comment on above: Order Comment: Speci men Type: BLOOD SPECIMENOrdering Facility: [facility] Address: [address] [place] [address] Performed By: #### 5 7021-8 ####[facility] [id number] [place] [address] Neutrophils (Bld) [#/Vol] 2.44 10*3/uL Normal 1.45-7.50 [facility] Comment on above: Order Comment: Speci men Type: BLOOD SPECIMENOrdering Facility: [facility] Address: [address] [place] [address] Performed By: #### 5 7021-8 ####[facility] [id number] [place] [address] Neutrophils/100 WBC (Bld) 49.0 % Normal [facility] Comment on above: Order Comment: Speci men Type: BLOOD SPECIMENOrdering Facility: [facility] Address: [address] [place] [address] Performed By: #### 5 7021-8 ####[facility] [id number] [place] [address] Nucleated RBC (Bld) [#/Vol] 10*3/uL Normal <0.01 [facility] Comment on above: Order Comment: Speci men Type: BLOOD SPECIMENOrdering Facility: [facility] Address: [address] [place] [address] Performed By: #### 5 7021-8 ####[facility] [id number] [place] [address] Nucleated RBC/100 WBC (Bld) [Ratio] 0.0 /100 WBC Normal [facility] Comment on above: Order Comment: Speci men Type: BLOOD SPECIMENOrdering Facility: [facility] Address: [address] [place] [address] Performed By: #### 5 7021-8 ####[facility] [id number] [place] [address] Platelet mean volume (Bld) [Entitic vol] 9.5 fL Normal 9.0-12.7 [facility] Comment on above: Order Comment: Speci men Type: BLOOD SPECIMENOrdering Facility: [facility] Address: [address] [place] [address] Performed By: #### 5 7021-8 ####[facility] [id number] [place] [address] Platelets (Bld) [#/Vol] 266 10*3/uL Normal 150-400 [facility] Comment on above: Order Comment: Speci men Type: BLOOD SPECIMENOrdering Facility: [facility] Address: [address] [place] [address] Performed By: #### 5 7021-8 ####[facility] [id number] [place] [address] RBC (Bld) [#/Vol] 3.67 10*6/uL Low 4.20-6.00 [facility] Comment on above: Order Comment: Speci men Type: BLOOD SPECIMENOrdering Facility: [facility] Address: [address] [place] [address] Performed By: #### 5 7021-8 ####[facility]IA [id number] [place] [address] WBC (Bld) [#/Vol] 4.98 10*3/uL Normal 3.70-11.00 [facility] Comment on above: Order Comment: Speci men Type: BLOOD SPECIMENOrdering Facility: [facility] Address: [address] [place] [address] Performed By: #### 5 7021-8 ####[facility]IA [id number] [place] [address] CNOVSPon 12-11-2023 CNOVSP Normal [facility] Comprehensive metabolic 2000 panelOrdered By: Je Elias on 12-11-2023 Albumin [Mass/Vol] 3.9 g/dL 3.9 - 4.9 g/dL [facility] ALP [Catalytic activity/Vol] 158 U/L High 38 - 113 U/L [facility] ALT [Catalytic activity/Vol] 16 U/L 10 - 54 U/L [facility] Anion gap [Moles/Vol] 8 mmol/L 8 - 15 mmol/L [facility] AST [Catalytic activity/Vol] 14 U/L 14 - 40 U/L [facility] Bilirubin [Mass/Vol] 0.5 mg/dL 0.2 - 1 .3 mg/dL [facility] Calcium [Mass/Vol] 10.4 mg/dL High 8.5 - 10. 2 mg/dL [facility] Chloride [Moles/Vol] 104 mmol/L 98 - 10 7 mmol/L [facility] CO2 [Moles/Vol] 25 mmol/L 22 - 30 mmol/L [facility] Creatinine [Mass/Vol] 0.95 mg/dL 0.73 - 1.22 mg/dL [facility] GFR/1.73 sq M.predicted among non-blacks MDRD (S/P/Bld) [Vol rate/Area] 85 mL/min/{1.73_m2} - PINF [facility] Comment on above: Estimated Glomerular [...] 127 mg/dL High 74 - 99 mg/dL [facility] Comment on above: The [place] Diab[employer] s Association (ADA) provides guidance for [...] Standards of Medical Care in Diabetes 2016, [place] [employer]. Diabetes Care. 2016.39(Suppl 1). Interpretation and review of laboratory results Abnormal [facility] Potassium [Moles/Vol] 4.5 mmol/L 3.7 - 5.1 mmol/L [facility] Protein [Mass/Vol] 6.9 g/dL 6.3 - 8.0 g/dL [facility] Sodium [Moles/Vol] 137 mmol/L 136 - 144 mmol/L [facility] Urea nitrogen [Mass/Vol] 21 mg/dL 9 - 24 mg/dL [facility] Comprehensive metabolic 2000 panelon 12-11-2023 Albumin [Mass/Vol] 3.9 g/dL Normal 3.9-4.9 [facility] Comment on above: Order Comment: Speci men Type: BLOOD SPECIMENOrdering Facility: [facility] Address: [address] [place], [place] [address] Performed By: #### 2 4323-8 ####[facility]IA [id number] [place] [address] ALP [Catalytic activity/Vol] 158 U/L High 38-113 [facility] Comment on above: Order Comment: Speci men Type: BLOOD SPECIMENOrdering Facility: [facility] Address: [address] [place] [address] Performed By: #### 2 4323-8 ####[facility]IA [id number] [place] [address] ALT [Catalytic activity/Vol] 16 U/L Normal 10-54 [facility] Comment on above: Order Comment: Speci men Type: BLOOD SPECIMENOrdering Facility: [facility] Address: [address] [place] [address] Performed By: #### 2 4323-8 ####[facility]IA [id number] [place] [address] Anion gap [Moles/Vol] 8 mmol/L Normal 8-15 [facility] Comment on above: Order Comment: Speci men Type: BLOOD SPECIMENOrdering Facility: [facility] Address: [address] [place] [address] Performed By: #### 2 4323-8 ####[facility]IA [id number] [place] [address] AST [Catalytic activity/Vol] 14 U/L Normal 14-40 [facility] Comment on above: Order Comment: Speci men Type: BLOOD SPECIMENOrdering Facility: [facility] Address: [address] [place] [address] Performed By: #### 2 4323-8 ####[facility]IA [id number] [place] [address] Bilirubin [Mass/Vol] 0.5 mg/dL Normal 0.2-1.3 [facility] Comment on above: Order Comment: Speci men Type: BLOOD SPECIMENOrdering Facility: [facility] Address: [address] [place], [place] [address] Performed By: #### 2 4323-8 ####[facility]IA [id number] [place] [address] Calcium [Mass/Vol] 10.4 mg/dL High 8.5-10.2 [facility] Comment on above: Order Comment: Speci men Type: BLOOD SPECIMENOrdering Facility: [facility] Address: [address] [place] [address] Performed By: #### 2 4323-8 ####[facility]IA [id number] [place] [address] Chloride [Moles/Vol] 104 mmol/L Normal 98-107 [facility] Comment on above: Order Comment: Speci men Type: BLOOD SPECIMENOrdering Facility: [facility] Address: [address] [place] [address] Performed By: #### 2 4323-8 ####[facility]CLIA [id number] [place] [address] CO2 [Moles/Vol] 25 mmol/L Normal 22-30 [facility] Comment on above: Order Comment: Speci men Type: BLOOD SPECIMENOrdering Facility: [facility] Address: [address] [place] [address] Performed By: #### 2 4323-8 ####[facility]CLIA [id number] [place] [address] Creatinine [Mass/Vol] 0.95 mg/dL Normal 0.73-1.22 [facility] Comment on above: Order Comment: Speci men Type: BLOOD SPECIMENOrdering Facility: [facility] Address: [address] [place], [place] [address] Performed By: #### 2 4323-8 ####[facility]CLIA [id number] [place] [address] Creatinine and Glomerular filtration rate.predicted panel (S/P/Bld) 85 mL/min/1.73m??? Normal >=60 [facility] Comment on above: Order Comment: Noemí hoff Type: BLOOD SPECIMENOrdering Facility: [facility] Address: [address] [place] [address] Result Comment: Kathy mated Glomerular Filtration Rate [...] actual GFR. Performed By: #### 2 4323-8 ####[facility]CLIA [id number] [place] [address] Glucose [Mass/Vol] 127 mg/dL High 74-99 [facility] Comment on above: Order Comment: Noemí hoff Type: BLOOD SPECIMENOrdering Facility: [facility] Address: [address] [place] [address] Result Comment: The [place] Diabetes Association (ADA) provides guidance for cutoff [...] Standards of Medical Care in Diabetes 2016, [place] [employer]. Diabetes Care. 2016.39(Suppl 1). Performed By: #### 2 4323-8 ####[facility]CLIA [id number] [place] [address] Potassium [Moles/Vol] 4.5 mmol/L Normal 3.7-5.1 [facility] Comment on above: Order Comment: Speci men Type: BLOOD SPECIMENOrdering Facility: [facility] Address: [address] [place], [place] [address] Performed By: #### 2 4323-8 ####[facility]CLIA [id number] [place] [address] Protein [Mass/Vol] 6.9 g/dL Normal 6.3-8.0 [facility] Comment on above: Order Comment: Speci men Type: BLOOD SPECIMENOrdering Facility: [facility] Address: [address] [place] [address] Performed By: #### 2 4323-8 ####[facility]CLIA [id number] [place] [address] Sodium [Moles/Vol] 137 mmol/L Normal 136-144 [facility] Comment on above: Order Comment: Speci men Type: BLOOD SPECIMENOrdering Facility: [facility] Address: [address] [place] [address] Performed By: #### 2 4323-8 ####[facility]CLIA [id number] [place] [address] Urea nitrogen [Mass/Vol] 21 mg/dL Normal 9-24 [facility] Comment on above: Order Comment: Speci men Type: BLOOD SPECIMENOrdering Facility: [facility] Address: [address] [place] [address] Performed By: #### 2 4323-8 ####[facility]CLIA [id number] [place] [address] CNPNon 12-05-2023 CNPN Normal [facility] CNPNon 11-28-2023 CNPN Normal [facility] CBC W Auto Differential pane l (Bld)on 11-20-2023 Basophils (Bld) [#/Vol] 0.03 10*3/uL NINF [facility] Basophils/100 WBC (Bld) 0.7 % [facility] Differential cell count method Nom (Bld) Auto [facility] Eosinophils (Bld) [#/Vol] 0.07 10*3/uL [facility] Eosinophils/100 WBC (Bld) 1.6 % [facility] Erythrocyte distribution width (RBC) [Ratio] 16.7 % High 11.5 - 15.0 % [facility] Hematocrit (Bld) [Volume fraction] 33.9 % Low 39.0 - 51.0 % [facility] Hemoglobin (Bld) [Mass/Vol] 10.8 g/dL Low 13.0 - 17.0 g/dL [facility] Immature granulocytes (Bld) [#/Vol] [facility] Immature granulocytes/100 WBC (Bld) 0.2 % [facility] Interpretation and review of laboratory results Abnormal [facility] Lymphocytes (Bld) [#/Vol] 1.87 10*3/uL [facility] Lymphocytes/100 WBC (Bld) 43.6 % [facility] MCH (RBC) [Entitic mass] 30.4 pg 26.0 - 34.0 pg [facility] MCHC (RBC) [Mass/Vol] 31.9 g/dL 30.5 - 36.0 g/dL [facility] MCV (RBC) [Entitic vol] 95.5 fL 80.0 - 100.0 fL [facility] Monocytes (Bld) [#/Vol] 0.58 10*3/uL [facility] Monocytes/100 WBC (Bld) 13.5 % [facility] Neutrophils (Bld) [#/Vol] 1.73 10*3/uL [facility] Neutrophils/100 WBC (Bld) 40.4 % [facility] Nucleated RBC (Bld) [#/Vol] [facility] Nucleated RBC/100 WBC (Bld) [Ratio] 0.0 % /100 WBC [facility] Platelet mean volume (Bld) [Entitic vol] 9.4 fL 9.0 - 12.7 fL [facility] Platelets (Bld) [#/Vol] 245 10*3/uL [facility] RBC (Bld) [#/Vol] 3.55 10*6/uL Low 4.20 - 6.0 0 m/uL [facility] WBC (Bld) [#/Vol] 4.29 10*3/uL [facility] Basophils (Bld) [#/Vol] 0.03 10*3/uL Normal <0.11 [facility] Comment on above: Order Comment: Speci men Type: BLOOD SPECIMENOrdering Facility: [facility] Address: [address] [place] [address] Performed By: #### 5 7021-8 ####[facility] LABCLIA [id number] [place] [address] Basophils/100 WBC (Bld) 0.7 % Normal [facility] Comment on above: Order Comment: Speci men Type: BLOOD SPECIMENOrdering Facility: [facility] Address: [address] [place] [address] Performed By: #### 5 7021-8 ####[facility] LABCLIA [id number] [place] [address] Differential cell count method Nom (Bld) Auto Normal [facility] Comment on above: Order Comment: Speci men Type: BLOOD SPECIMENOrdering Facility: [facility] Address: [address] [place] [address] Performed By: #### 5 7021-8 ####[facility] LABCLIA [id number] [place] [address] Eosinophils (Bld) [#/Vol] 0.07 10*3/uL Normal <0.46 [facility] Comment on above: Order Comment: Speci men Type: BLOOD SPECIMENOrdering Facility: [facility] Address: [address] [place] [address] Performed By: #### 5 7021-8 ####[facility] LABCLIA [id number] [place] [address] Eosinophils/100 WBC (Bld) 1.6 % Normal [facility] Comment on above: Order Comment: Speci men Type: BLOOD SPECIMENOrdering Facility: [facility] Address: [address] [place] [address] Performed By: #### 5 7021-8 ####[facility] LABCLIA [id number] [place] [address] Erythrocyte distribution width (RBC) [Ratio] 16.7 % High 11.5-15.0 [facility] Comment on above: Order Comment: Speci men Type: BLOOD SPECIMENOrdering Facility: [facility] Address: [address] [place] [address] Performed By: #### 5 7021-8 ####[facility] LABCLIA [id number] [place] [address] Hematocrit (Bld) [Volume fraction] 33.9 % Low 39.0-51.0 [facility] Comment on above: Order Comment: Speci men Type: BLOOD SPECIMENOrdering Facility: [facility] Address: [address] [place] [address] Performed By: #### 5 7021-8 ####[facility] LABCLIA [id number] [place] [address] Hemoglobin (Bld) [Mass/Vol] 10.8 g/dL Low 13.0-17.0 [facility] Comment on above: Order Comment: Speci men Type: BLOOD SPECIMENOrdering Facility: [facility] Address: [address] [place] [address] Performed By: #### 5 7021-8 ####[facility] LABCLIA [id number] [place] [address] Immature granulocytes (Bld) [#/Vol] 10*3/uL Normal <0.10 [facility] Comment on above: Order Comment: Speci men Type: BLOOD SPECIMENOrdering Facility: [facility] Address: [address] [place] [address] Performed By: #### 5 7021-8 ####[facility] LABIA [id number] [place] [address] Immature granulocytes/100 WBC (Bld) 0.2 % Normal [facility] Comment on above: Order Comment: Speci men Type: BLOOD SPECIMENOrdering Facility: [facility] Address: [address] [place] [address] Performed By: #### 5 7021-8 ####[facility] LABCLIA [id number] [place] [address] Lymphocytes (Bld) [#/Vol] 1.87 10*3/uL Normal 1.00-4.00 [facility] Comment on above: Order Comment: Speci men Type: BLOOD SPECIMENOrdering Facility: [facility] Address: [address] [place] [address] Performed By: #### 5 7021-8 ####[facility] LABCLIA [id number] [place] [address] Lymphocytes/100 WBC (Bld) 43.6 % Normal [facility] Comment on above: Order Comment: Speci men Type: BLOOD SPECIMENOrdering Facility: [facility] Address: [address] [place] [address] Performed By: #### 5 7021-8 ####[facility] LABCLIA [id number] [place] [address] MCH (RBC) [Entitic mass] 30.4 pg Normal 26.0-34.0 [facility] Comment on above: Order Comment: Speci men Type: BLOOD SPECIMENOrdering Facility: [facility] Address: [address] [place] [address] Performed By: #### 5 7021-8 ####[facility] LABCLIA [id number] [place] [address] MCHC (RBC) [Mass/Vol] 31.9 g/dL Normal 30.5-36.0 [facility] Comment on above: Order Comment: Speci men Type: BLOOD SPECIMENOrdering Facility: [facility] Address: [address] [place] [address] Performed By: #### 5 7021-8 ####[facility] LABCLIA [id number] [place] [address] MCV (RBC) [Entitic vol] 95.5 fL Normal 80.0-100.0 [facility] Comment on above: Order Comment: Speci men Type: BLOOD SPECIMENOrdering Facility: [facility] Address: [address] [place] [address] Performed By: #### 5 7021-8 ####[facility] LABCLIA [id number] [place] [address] Monocytes (Bld) [#/Vol] 0.58 10*3/uL Normal <0.87 [facility] Comment on above: Order Comment: Speci men Type: BLOOD SPECIMENOrdering Facility: [facility] Address: [address] [place] [address] Performed By: #### 5 7021-8 ####[facility] LABCLIA [id number] [place] [address] Monocytes/100 WBC (Bld) 13.5 % Normal [facility] Comment on above: Order Comment: Speci men Type: BLOOD SPECIMENOrdering Facility: [facility] Address: [address] [place] [address] Performed By: #### 5 7021-8 ####[facility] LABCLIA [id number] [place] [address] Neutrophils (Bld) [#/Vol] 1.73 10*3/uL Normal 1.45-7.50 [facility] Comment on above: Order Comment: Speci men Type: BLOOD SPECIMENOrdering Facility: [facility] Address: [address] [place] [address] Performed By: #### 5 7021-8 ####[facility] LABCLIA [id number] [place] [address] Neutrophils/100 WBC (Bld) 40.4 % Normal [facility] Comment on above: Order Comment: Speci men Type: BLOOD SPECIMENOrdering Facility: [facility] Address: [address] [place] [address] Performed By: #### 5 7021-8 ####[facility] LABCLIA [id number] [place] [address] Nucleated RBC (Bld) [#/Vol] 10*3/uL Normal <0.01 [facility] Comment on above: Order Comment: Speci men Type: BLOOD SPECIMENOrdering Facility: [facility] Address: [address] [place] [address] Performed By: #### 5 7021-8 ####[facility] LABCLIA [id number] [place] [address] Nucleated RBC/100 WBC (Bld) [Ratio] 0.0 /100 WBC Normal [facility] Comment on above: Order Comment: Speci men Type: BLOOD SPECIMENOrdering Facility: [facility] Address: [address] [place] [address] Performed By: #### 5 7021-8 ####[facility] LABCLIA [id number] [place] [address] Platelet mean volume (Bld) [Entitic vol] 9.4 fL Normal 9.0-12.7 [facility] Comment on above: Order Comment: Speci men Type: BLOOD SPECIMENOrdering Facility: [facility] Address: [address] [place] [address] Performed By: #### 5 7021-8 ####[facility] LABCLIA [id number] [place] [address] Platelets (Bld) [#/Vol] 245 10*3/uL Normal 150-400 [facility] Comment on above: Order Comment: Speci men Type: BLOOD SPECIMENOrdering Facility: [facility] Address: [address] [place] [address] Performed By: #### 5 7021-8 ####[facility] LABCLIA [id number] [place] [address] RBC (Bld) [#/Vol] 3.55 10*6/uL Low 4.20-6.00 [facility] Comment on above: Order Comment: Speci men Type: BLOOD SPECIMENOrdering Facility: [facility] Address: [address] [place] [address] Performed By: #### 5 7021-8 ####[facility] LABCLIA [id number] [place] [address] WBC (Bld) [#/Vol] 4.29 10*3/uL Normal 3.70-11.00 [facility] Comment on above: Order Comment: Speci men Type: BLOOD SPECIMENOrdering Facility: [facility] Address: [address] [place] [address] Performed By: #### 5 7021-8 ####[facility] LABCLIA [id number] [place] [address] CNOVSPon 11-20-2023 CNOVSP Normal [facility] Cancer Ag19-9 SerPl-aCncon 0 11-20-2023 Cancer Ag 19-9 Qn 328.0 [arb'U]/mL High <36.0 [facility] Comment on above: Order Comment: Speci men Type: BLOOD SPECIMENOrdering Facility: [facility] Address: [address] [place] [address] Result Comment: [facility] er antigen 19-9 test is used as an aid in monitoring response to treatment or recurrence in patients with established pancreatic, hepatobiliary, or gastrointestinal malignancies. Clinical correlation is required.The CA 19-9 Antigen test was performed using the [employer] DXI paramagnetic particle chemiluminescent immunoassay method. Results obtained with different assay methods or kits cannot be used interchangeably. Performed By: #### 2 4108-3 ####[facility] LABCLIA [id number] [place] [address] [facility] Comprehensive metabolic 2000 panelOrdered By: Marina Bailey on 11-20-2023 Albumin [Mass/Vol] 3.8 g/dL Low 3.9 - 4.9 g/dL [facility] ALP [Catalytic activity/Vol] 132 U/L High 38 - 113 U/L [facility] ALT [Catalytic activity/Vol] 15 U/L 10 - 54 U/L [facility] Anion gap [Moles/Vol] 8 mmol/L 8 - 15 mmol/L [facility] AST [Catalytic activity/Vol] 17 U/L 14 - 40 U/L [facility] Bilirubin [Mass/Vol] 0.5 mg/dL 0.2 - 1 .3 mg/dL [facility] Calcium [Mass/Vol] 10.4 mg/dL High 8.5 - 10. 2 mg/dL [facility] Chloride [Moles/Vol] 104 mmol/L 98 - 10 7 mmol/L [facility] CO2 [Moles/Vol] 25 mmol/L 22 - 30 mmol/L [facility] Creatinine [Mass/Vol] 0.70 mg/dL Low 0.73 - 1.22 mg/dL [facility] GFR/1.73 sq M.predicted among non-blacks MDRD (S/P/Bld) [Vol rate/Area] 98 mL/min/{1.73_m2} - PINF [facility] Comment on above: Estimated Glomerular [...] 134 mg/dL High 74 - 99 mg/dL [facility] Comment on above: The [place] Diab[employer] Association (ADA) provides guidance for [...] Standards of Medical Care in Diabetes 2016, [place] [employer]. Diabetes Care. 2016.39(Suppl 1). Interpretation and review of laboratory results Abnormal [facility] Potassium [Moles/Vol] 4.3 mmol/L 3.7 - 5.1 mmol/L [facility] Protein [Mass/Vol] 6.8 g/dL 6.3 - 8.0 g/dL [facility] Sodium [Moles/Vol] 137 mmol/L 136 - 144 mmol/L [facility] Urea nitrogen [Mass/Vol] 13 mg/dL 9 - 24 mg/dL [facility] Comprehensive metabolic 2000 panelon 11-20-2023 Albumin [Mass/Vol] 3.8 g/dL Low 3.9-4.9 [facility] Comment on above: Order Comment: Speci men Type: BLOOD SPECIMENOrdering Facility: [facility] Address: [address] [place] [address] Performed By: #### 2 4323-8 ####[facility] LABCLIA [id number] [place] [address] ALP [Catalytic activity/Vol] 132 U/L High 38-113 [facility] Comment on above: Order Comment: Speci men Type: BLOOD SPECIMENOrdering Facility: [facility] Address: [address] [place] [address] Performed By: #### 2 4323-8 ####[facility] LABCLIA [id number] [place] [address] ALT [Catalytic activity/Vol] 15 U/L Normal 10-54 [facility] Comment on above: Order Comment: Speci men Type: BLOOD SPECIMENOrdering Facility: [facility] Address: [address] [place] [address] Performed By: #### 2 4323-8 ####[facility] LABCLIA [id number] [place] [address] Anion gap [Moles/Vol] 8 mmol/L Normal 8-15 [facility] Comment on above: Order Comment: Speci men Type: BLOOD SPECIMENOrdering Facility: [facility] Address: [address] [place] [address] Performed By: #### 2 4323-8 ####[facility] LABCLIA [id number] [place] [address] AST [Catalytic activity/Vol] 17 U/L Normal 14-40 [facility] Comment on above: Order Comment: Speci men Type: BLOOD SPECIMENOrdering Facility: [facility] Address: [address] [place] [address] Performed By: #### 2 4323-8 ####[facility] LABCLIA [id number] [place] [address] Bilirubin [Mass/Vol] 0.5 mg/dL Normal 0.2-1.3 [facility] Comment on above: Order Comment: Speci men Type: BLOOD SPECIMENOrdering Facility: [facility] Address: [address] [place] [address] Performed By: #### 2 4323-8 ####[facility] LABCLIA [id number] [place] [address] Calcium [Mass/Vol] 10.4 mg/dL High 8.5-10.2 [facility] Comment on above: Order Comment: Speci men Type: BLOOD SPECIMENOrdering Facility: [facility] Address: [address] [place] [address] Performed By: #### 2 4323-8 ####[facility] LABCLIA [id number] [place] [address] Chloride [Moles/Vol] 104 mmol/L Normal 98-107 [facility] Comment on above: Order Comment: Speci men Type: BLOOD SPECIMENOrdering Facility: [facility] Address: [address] [place] [address] Performed By: #### 2 4323-8 ####[facility] LABCLIA [id number] [place] [address] CO2 [Moles/Vol] 25 mmol/L Normal 22-30 [facility] Comment on above: Order Comment: Speci men Type: BLOOD SPECIMENOrdering Facility: [facility] Address: [address] [place] [address] Performed By: #### 2 4323-8 ####[facility] LABCLIA [id number] [place] [address] Creatinine [Mass/Vol] 0.70 mg/dL Low 0.73-1.22 [facility] Comment on above: Order Comment: Noemí hoff Type: BLOOD SPECIMENOrdering Facility: [facility] Address: [address] [place] [address] Performed By: #### 2 4323-8 ####[facility] LABCLIA [id number] [place] [address] Creatinine and Glomerular filtration rate.predicted panel (S/P/Bld) 98 mL/min/1.73m??? Normal >=60 [facility] Comment on above: Order Comment: Noemí men Type: BLOOD SPECIMENOrdering Facility: [facility] Address: [address] [place] [address] Result Comment: Kathy mated Glomerular Filtration Rate [...] actual GFR. Performed By: #### 2 4323-8 ####[facility] LABCLIA [id number] [place] [address] Glucose [Mass/Vol] 134 mg/dL High 74-99 [facility] Comment on above: Order Comment: Speci men Type: BLOOD SPECIMENOrdering Facility: [facility] Address: [address] [place] [address] Result Comment: The [place] Diabetes Association (ADA) provides guidance for cutoff [...] Standards of Medical Care in Diabetes 2016, [place] Diabetes Association. Diabetes Care. 2016.39(Suppl 1). Performed By: #### 2 4323-8 ####[facility] LABCLIA [id number] [place] [address] Potassium [Moles/Vol] 4.3 mmol/L Normal 3.7-5.1 [facility] Comment on above: Order Comment: Speci men Type: BLOOD SPECIMENOrdering Facility: [facility] Address: [address] [place] [address] Performed By: #### 2 4323-8 ####[facility] LABCLIA [id number] [place] [address] Protein [Mass/Vol] 6.8 g/dL Normal 6.3-8.0 [facility] Comment on above: Order Comment: Speci men Type: BLOOD SPECIMENOrdering Facility: [facility] Address: [address] [place] [address] Performed By: #### 2 4323-8 ####[facility] LABCLIA [id number] [place] [address] Sodium [Moles/Vol] 137 mmol/L Normal 136-144 [facility] Comment on above: Order Comment: Speci men Type: BLOOD SPECIMENOrdering Facility: [facility] Address: [address] [id number] Performed By: #### 2 4323-8 ####[facility] LABCLIA [id number] [place] [address] Urea nitrogen [Mass/Vol] 13 mg/dL Normal 9-24 [facility] Comment on above: Order Comment: Speci men Type: BLOOD SPECIMENOrdering Facility: [facility] Address: [address] [id number] Performed By: #### 2 4323-8 ####[facility] LABCLIA [id number] [place] [address] CT Abdomen and Pelvis W cont rast Kodi 11-19-2023 Interpretation and review of laboratory results Abnormal [facility] Radiology Result ACTIONABLE Abnormal [facility] Comment on above: This report contains an [...] be communicated with the ordering provider via [employer] staff message or phone message by Imaging [...] any questions regarding this interpretation, please call [phone]. If you are unable to reach us at the number above, please feel free to contact [facility] eRadiology at [phone]. DIVISION OF RADIOLOGY * * *Final Report* * * DATE OF EXAM: Nov 17 2023 11:16AM [facility] 0530 - CT ABD/PEL W IVCON / [...] CT scan report for the abdomen findings. Delivery Sales Worker (topogram) images: No additional findings. DIVISION OF RADIOLOGY Provider, Angélica Charles [facility] - 11/19/2023 * * *Final Report* * * DATE OF EXAM: Nov 17 2023 11:16AM [facility] 0530 - CT ABD/PEL W IVCON / [...] CT scan report for the abdomen findings. Delivery Sales Worker (topogram) images: No additional findings. IMPRESSION IMPRESSION: [...] be communicated with the ordering provider via [employer] staff message or phone message by Imaging [...] any questions regarding this interpretation, please call [phone]. If you are unable to reach us at the number above, please feel free to contact [facility] eRadiology at [phone]. [facility] CT Chest W contrast [place] IMPRESSION: 1. [...] any questions regarding this interpretation, please call [phone]. If you are unable to reach us at the number above, please feel free to contact [facility] eRadiology at [phone]. DIVISION OF RADIOLOGY * * *Final Report* * * DATE OF EXAM: Nov 17 2023 11:16AM [facility] 0539 - CT CHEST W IVCON / [...] CT scan report for the abdomen findings. Delivery Sales Worker (topogram) images: No additional findings. DIVISION OF RADIOLOGY Provider, Helga Araceli [facility] - 11/19/2023 * * *Final Report* * * DATE OF EXAM: Nov 17 2023 11:16AM [facility] 0539 - CT CHEST W IVCON / [...] CT scan report for the abdomen findings. Delivery Sales Worker (topogram) images: No additional findings. IMPRESSION IMPRESSION: [...] any questions regarding this interpretation, please call [phone]. If you are unable to reach us at the number above, please feel free to contact [facility] eRadiology at [phone]. [facility] CT Chest W contrast IVOrdere d By: Ccf Provider on 11-19-[address] [facility] [address] ABD/PEL W IVCONon 024 CT ABD/PEL W IVCON Invalid Interpretation Code [facility] CT CHEST W IVCONon 4 CT CHEST W IVCON Normal [facility] No Panel Informationon 11-16 Radiology Study observation (narrative) [facility] CNOVSPon 11-02-2023 CNOVSP Normal [facility] CBC W Auto Differential pane l (Bld)on 10-31-2023 Basophils (Bld) [#/Vol] 0.03 10*3/uL [facility] Basophils/100 WBC (Bld) 0.6 % [facility] Differential cell count method Nom (Bld) Auto [facility] Eosinophils (Bld) [#/Vol] 0.04 10*3/uL [facility] Eosinophils/100 WBC (Bld) 0.8 % [facility] Erythrocyte distribution width (RBC) [Ratio] 17.6 % High 11.5 - 15.0 % [facility] Hematocrit (Bld) [Volume fraction] 34.1 % Low 39.0 - 51.0 % [facility] Hemoglobin (Bld) [Mass/Vol] 10.7 g/dL Low 13.0 - 17.0 g/dL [facility] Immature granulocytes (Bld) [#/Vol] 0.03 10*3/uL [facility] Immature granulocytes/100 WBC (Bld) 0.6 % [facility] Interpretation and review of laboratory results Abnormal [facility] Lymphocytes (Bld) [#/Vol] 1.46 10*3/uL [facility] Lymphocytes/100 WBC (Bld) 30.2 % [facility] MCH (RBC) [Entitic mass] 30.2 pg 26.0 - 34.0 pg [facility] MCHC (RBC) [Mass/Vol] 31.4 g/dL 30.5 - 36.0 g/dL [facility] MCV (RBC) [Entitic vol] 96.3 fL 80.0 - 100.0 fL [facility] Monocytes (Bld) [#/Vol] 0.61 10*3/uL [facility] Monocytes/100 WBC (Bld) 12.6 % [facility] Neutrophils (Bld) [#/Vol] 2.66 10*3/uL [facility] Neutrophils/100 WBC (Bld) 55.2 % [facility] Nucleated RBC (Bld) [#/Vol] [facility] Nucleated RBC/100 WBC (Bld) [Ratio] 0.0 % /100 WBC [facility] Platelet mean volume (Bld) [Entitic vol] 9.2 fL 9.0 - 12.7 fL [facility] Platelets (Bld) [#/Vol] 296 10*3/uL [facility] RBC (Bld) [#/Vol] 3.54 10*6/uL Low 4.20 - 6.0 0 m/uL [facility] WBC (Bld) [#/Vol] 4.83 10*3/uL [facility] Basophils (Bld) [#/Vol] 0.03 10*3/uL Normal <0.11 [facility] Comment on above: Order Comment: Speci men Type: BLOOD SPECIMENOrdering Facility: [facility] Address: [address] [place] [address] Performed By: #### 5 7021-8 ####[facility] LABCLIA [id number] [place] [address] Basophils/100 WBC (Bld) 0.6 % Normal [facility] Comment on above: Order Comment: Speci men Type: BLOOD SPECIMENOrdering Facility: [facility] Address: [address] [place] [address] Performed By: #### 5 7021-8 ####[facility] LABCLIA [id number] [place] [address] Differential cell count method Nom (Bld) Auto Normal [facility] Comment on above: Order Comment: Speci men Type: BLOOD SPECIMENOrdering Facility: [facility] Address: [address] [place] [address] Performed By: #### 5 7021-8 ####[facility] LABCLIA [id number] [place] [address] Eosinophils (Bld) [#/Vol] 0.04 10*3/uL Normal <0.46 [facility] Comment on above: Order Comment: Speci men Type: BLOOD SPECIMENOrdering Facility: [facility] Address: [address] [place] [address] Performed By: #### 5 7021-8 ####[facility] LABCLIA [id number] [place] [address] Eosinophils/100 WBC (Bld) 0.8 % Normal [facility] Comment on above: Order Comment: Speci men Type: BLOOD SPECIMENOrdering Facility: [facility] Address: [address] [place] [address] Performed By: #### 5 7021-8 ####[facility] LABCLIA [id number] [place] [address] Erythrocyte distribution width (RBC) [Ratio] 17.6 % High 11.5-15.0 [facility] Comment on above: Order Comment: Speci men Type: BLOOD SPECIMENOrdering Facility: [facility] Address: [address] [place] [address] Performed By: #### 5 7021-8 ####[facility] LABCLIA [id number] [place] [address] Hematocrit (Bld) [Volume fraction] 34.1 % Low 39.0-51.0 [facility] Comment on above: Order Comment: Speci men Type: BLOOD SPECIMENOrdering Facility: [facility] Address: [address] [place] [address] Performed By: #### 5 7021-8 ####[facility] LABCLIA [id number] [place] [address] Hemoglobin (Bld) [Mass/Vol] 10.7 g/dL Low 13.0-17.0 [facility] Comment on above: Order Comment: Speci men Type: BLOOD SPECIMENOrdering Facility: [facility] Address: [address] [place] [address] Performed By: #### 5 7021-8 ####[facility] LABCLIA [id number] [place] [address] Immature granulocytes (Bld) [#/Vol] 0.03 10*3/uL Normal <0.10 [facility] Comment on above: Order Comment: Speci men Type: BLOOD SPECIMENOrdering Facility: [facility] Address: [address] [place] [address] Performed By: #### 5 7021-8 ####[facility] LABCLIA [id number] [place] [address] Immature granulocytes/100 WBC (Bld) 0.6 % Normal [facility] Comment on above: Order Comment: Speci men Type: BLOOD SPECIMENOrdering Facility: [facility] Address: [address] [place] [address] Performed By: #### 5 7021-8 ####[facility] LABCLIA [id number] [place] [address] Lymphocytes (Bld) [#/Vol] 1.46 10*3/uL Normal 1.00-4.00 [facility] Comment on above: Order Comment: Speci men Type: BLOOD SPECIMENOrdering Facility: [facility] Address: [address] [place] [address] Performed By: #### 5 7021-8 ####[facility] LABCLIA [id number] [place] [address] Lymphocytes/100 WBC (Bld) 30.2 % Normal [facility] Comment on above: Order Comment: Speci men Type: BLOOD SPECIMENOrdering Facility: [facility] Address: [address] [place] [address] Performed By: #### 5 7021-8 ####[facility] LABCLIA [id number] [place] [address] MCH (RBC) [Entitic mass] 30.2 pg Normal 26.0-34.0 [facility] Comment on above: Order Comment: Speci men Type: BLOOD SPECIMENOrdering Facility: [facility] Address: [address] [place] [address] Performed By: #### 5 7021-8 ####[facility] LABCLIA [id number] [place] [address] MCHC (RBC) [Mass/Vol] 31.4 g/dL Normal 30.5-36.0 [facility] Comment on above: Order Comment: Speci men Type: BLOOD SPECIMENOrdering Facility: [facility] Address: [address] [place] [address] Performed By: #### 5 7021-8 ####[facility] LABCLIA [id number] [place] [address] MCV (RBC) [Entitic vol] 96.3 fL Normal 80.0-100.0 [facility] Comment on above: Order Comment: Speci men Type: BLOOD SPECIMENOrdering Facility: [facility] Address: [address] [place] [address] Performed By: #### 5 7021-8 ####[facility] LABCLIA [id number] [place] [address] Monocytes (Bld) [#/Vol] 0.61 10*3/uL Normal <0.87 [facility] Comment on above: Order Comment: Speci men Type: BLOOD SPECIMENOrdering Facility: [facility] Address: [address] [place] [address] Performed By: #### 5 7021-8 ####[facility] LABCLIA [id number] [place] [address] Monocytes/100 WBC (Bld) 12.6 % Normal [facility] Comment on above: Order Comment: Speci men Type: BLOOD SPECIMENOrdering Facility: [facility] Address: [address] [place] [address] Performed By: #### 5 7021-8 ####[facility] LABCLIA [id number] [place] [address] Neutrophils (Bld) [#/Vol] 2.66 10*3/uL Normal 1.45-7.50 [facility] Comment on above: Order Comment: Speci men Type: BLOOD SPECIMENOrdering Facility: [facility] Address: [address] [place] [address] Performed By: #### 5 7021-8 ####[facility] LABCLIA [id number] [place] [address] Neutrophils/100 WBC (Bld) 55.2 % Normal [facility] Comment on above: Order Comment: Speci men Type: BLOOD SPECIMENOrdering Facility: [facility] Address: [address] [place] [address] Performed By: #### 5 7021-8 ####[facility] LABCLIA [id number] [place] [address] Nucleated RBC (Bld) [#/Vol] 10*3/uL Normal <0.01 [facility] Comment on above: Order Comment: Speci men Type: BLOOD SPECIMENOrdering Facility: [facility] Address: [address] [place] [address] Performed By: #### 5 7021-8 ####[facility] LABCLIA [id number] [place] [address] Nucleated RBC/100 WBC (Bld) [Ratio] 0.0 /100 WBC Normal [facility] Comment on above: Order Comment: Speci men Type: BLOOD SPECIMENOrdering Facility: [facility] Address: [address] [place] [address] Performed By: #### 5 7021-8 ####[facility] LABCLIA [id number] [place] [address] Platelet mean volume (Bld) [Entitic vol] 9.2 fL Normal 9.0-12.7 [facility] Comment on above: Order Comment: Speci men Type: BLOOD SPECIMENOrdering Facility: [facility] Address: [address] [place] [address] Performed By: #### 5 7021-8 ####[facility] LABCLIA [id number] [place] [address] Platelets (Bld) [#/Vol] 296 10*3/uL Normal 150-400 [facility] Comment on above: Order Comment: Speci men Type: BLOOD SPECIMENOrdering Facility: [facility] Address: [address] [place] [address] Performed By: #### 5 7021-8 ####[facility] LABCLIA [id number] [place] [address] RBC (Bld) [#/Vol] 3.54 10*6/uL Low 4.20-6.00 [facility] Comment on above: Order Comment: Speci men Type: BLOOD SPECIMENOrdering Facility: [facility] Address: [address] [place] [address] Performed By: #### 5 7021-8 ####[facility] LABCLIA [id number] [place] [address] WBC (Bld) [#/Vol] 4.83 10*3/uL Normal 3.70-11.00 [facility] Comment on above: Order Comment: Speci men Type: BLOOD SPECIMENOrdering Facility: [facility] Address: [address] [id number] Performed By: #### 5 7021-8 ####[facility] LABCLIA [id number] [place] [address] CNOVSPon 10-31-2023 CNOVSP Normal [facility] Cancer Ag19-9 SerPl-aCncon 0 10-31-2023 Cancer Ag 19-9 Qn 606.0 [arb'U]/mL High <36.0 [facility] Comment on above: Order Comment: Speci men Type: BLOOD SPECIMENOrdering Facility: [facility] Address: [address] [place] [address] Result Comment: [facility] er antigen 19-9 test is used as an aid in monitoring response to treatment or recurrence in patients with established pancreatic, hepatobiliary, or gastrointestinal malignancies. Clinical correlation is required.The CA 19-9 Antigen test was performed using the [employer] DXI paramagnetic particle chemiluminescent immunoassay method. Results obtained with different assay methods or kits cannot be used interchangeably. Performed By: #### 2 4108-3 ####[facility] LABCLIA [id number] [place] [id number] [place] Comprehensive metabolic 2000 panelOrdered By: Elizabeth Yu on 10-31-2023 Albumin [Mass/Vol] 3.7 g/dL Low 3.9 - 4.9 g/dL [facility] ALP [Catalytic activity/Vol] 169 U/L High 38 - 113 U/L [facility] ALT [Catalytic activity/Vol] 31 U/L 10 - 54 U/L [facility] Anion gap [Moles/Vol] 8 mmol/L 8 - 15 mmol/L [facility] AST [Catalytic activity/Vol] 23 U/L 14 - 40 U/L [facility] Bilirubin [Mass/Vol] 0.5 mg/dL 0.2 - 1 .3 mg/dL [facility] Calcium [Mass/Vol] 10.7 mg/dL High 8.5 - 10. 2 mg/dL [facility] Chloride [Moles/Vol] 101 mmol/L 98 - 10 7 mmol/L [facility] CO2 [Moles/Vol] 27 mmol/L 22 - 30 mmol/L [facility] Creatinine [Mass/Vol] 0.73 mg/dL 0.73 - 1.22 mg/dL [facility] GFR/1.73 sq M.predicted among non-blacks MDRD (S/P/Bld) [Vol rate/Area] 97 mL/min/{1.73_m2} - PINF [facility] Comment on above: Estimated Glomerular [...] 141 mg/dL High 74 - 99 mg/dL [facility] Comment on above: The [place] Di[employer] Association (ADA) provides guidance for [...] Standards of Medical Care in Diabetes 2016, [place] [employer]. Diabetes Care. 2016.39(Suppl 1). Interpretation and review of laboratory results Abnormal [facility] Potassium [Moles/Vol] 4.5 mmol/L 3.7 - 5.1 mmol/L [facility] Protein [Mass/Vol] 7.5 g/dL 6.3 - 8.0 g/dL [facility] Sodium [Moles/Vol] 136 mmol/L 136 - 144 mmol/L [facility] Urea nitrogen [Mass/Vol] 13 mg/dL 9 - 24 mg/dL [facility] Comprehensive metabolic 2000 panelon 10-31-2023 Albumin [Mass/Vol] 3.7 g/dL Low 3.9-4.9 [facility] Comment on above: Order Comment: Speci men Type: BLOOD SPECIMENOrdering Facility: [facility] Address: [address] [place] [address] Performed By: #### 2 4323-8 ####[facility] LABCLIA [id number] [place] [address] ALP [Catalytic activity/Vol] 169 U/L High 38-113 [facility] Comment on above: Order Comment: Speci men Type: BLOOD SPECIMENOrdering Facility: [facility] Address: [address] [place] [address] Performed By: #### 2 4323-8 ####[facility] LABCLIA [id number] [place] [address] ALT [Catalytic activity/Vol] 31 U/L Normal 10-54 [facility] Comment on above: Order Comment: Speci men Type: BLOOD SPECIMENOrdering Facility: [facility] Address: [address] [place] [address] Performed By: #### 2 4323-8 ####[facility] LABCLIA [id number] [place] [address] Anion gap [Moles/Vol] 8 mmol/L Normal 8-15 [facility] Comment on above: Order Comment: Speci men Type: BLOOD SPECIMENOrdering Facility: [facility] Address: [address] [place] [address] Performed By: #### 2 4323-8 ####[facility] LABCLIA [id number] [place] [address] AST [Catalytic activity/Vol] 23 U/L Normal 14-40 [facility] Comment on above: Order Comment: Speci men Type: BLOOD SPECIMENOrdering Facility: [facility] Address: [address] [place] [address] Performed By: #### 2 4323-8 ####[facility] LABCLIA [id number] [place] [address] Bilirubin [Mass/Vol] 0.5 mg/dL Normal 0.2-1.3 [facility] Comment on above: Order Comment: Speci men Type: BLOOD SPECIMENOrdering Facility: [facility] Address: [address] [place], [place] [address] Performed By: #### 2 4323-8 ####[facility] LABCLIA [id number] [place] [address] Calcium [Mass/Vol] 10.7 mg/dL High 8.5-10.2 [facility] Comment on above: Order Comment: Speci men Type: BLOOD SPECIMENOrdering Facility: [facility] Address: [address] [place] [address] Performed By: #### 2 4323-8 ####[facility] LABCLIA [id number] [place] [address] Chloride [Moles/Vol] 101 mmol/L Normal 98-107 [facility] Comment on above: Order Comment: Speci men Type: BLOOD SPECIMENOrdering Facility: [facility] Address: [address] [place] [address] Performed By: #### 2 4323-8 ####[facility] LABCLIA [id number] [place] [address] CO2 [Moles/Vol] 27 mmol/L Normal 22-30 [facility] Comment on above: Order Comment: Speci men Type: BLOOD SPECIMENOrdering Facility: [facility] Address: [address] [place] [address] Performed By: #### 2 4323-8 ####[facility] LABCLIA [id number] [place] [address] Creatinine [Mass/Vol] 0.73 mg/dL Normal 0.73-1.22 [facility] Comment on above: Order Comment: Speci men Type: BLOOD SPECIMENOrdering Facility: [facility] Address: [address] [place], [place] [address] Performed By: #### 2 4323-8 ####[facility] LABCLIA [id number] [place] [address] Creatinine and Glomerular filtration rate.predicted panel (S/P/Bld) 97 mL/min/1.73m??? Normal >=60 [facility] Comment on above: Order Comment: Rajanimack hoff Type: BLOOD SPECIMENOrdering Facility: [facility] Address: [address] [place] [address] Result Comment: Kathy mated Glomerular Filtration Rate [...] actual GFR. Performed By: #### 2 4323-8 ####[facility] LABIA [id number] [place] [address] Glucose [Mass/Vol] 141 mg/dL High 74-99 [facility] Comment on above: Order Comment: Speci luis eduardo Type: BLOOD SPECIMENOrdering Facility: [facility] Address: [address] [place] [address] Result Comment: The [place] Diabetes Association (ADA) provides guidance for cutoff [...] Standards of Medical Care in Diabetes 2016, [place] [employer]. Diabetes Care. 2016.39(Suppl 1). Performed By: #### 2 4323-8 ####[facility] LABCLIA [id number] [place] [address] Potassium [Moles/Vol] 4.5 mmol/L Normal 3.7-5.1 [facility] Comment on above: Order Comment: Speci men Type: BLOOD SPECIMENOrdering Facility: [facility] Address: [address] [place], [place] [address] Performed By: #### 2 4323-8 ####[facility] LABCLIA [id number] [place] [address] Protein [Mass/Vol] 7.5 g/dL Normal 6.3-8.0 [facility] Comment on above: Order Comment: Speci men Type: BLOOD SPECIMENOrdering Facility: [facility] Address: [address] [place] [address] Performed By: #### 2 4323-8 ####[facility] LABCLIA [id number] [place] [address] Sodium [Moles/Vol] 136 mmol/L Normal 136-144 [facility] Comment on above: Order Comment: Speci men Type: BLOOD SPECIMENOrdering Facility: [facility] Address: [address] [place], [place] [address] Performed By: #### 2 4323-8 ####[facility] LABCLIA [id number] [place] [address] Urea nitrogen [Mass/Vol] 13 mg/dL Normal 9-24 [facility] Comment on above: Order Comment: Speci men Type: BLOOD SPECIMENOrdering Facility: [facility] Address: [address] [place] [address] Performed By: #### 2 4323-8 ####[facility] LABCLIA [id number] [place] [address] CNPNon 10-17-2023 CNPN Normal [facility] CNPNon 10-13-2023 CNPN Normal [facility] CBC W Auto Differential pane l (Bld)on 10-11-2023 Basophils (Bld) [#/Vol] 0.04 10*3/uL NINF [facility] Basophils/100 WBC (Bld) 0.4 % [facility] Differential cell count method Nom (Bld) Auto [facility] Eosinophils (Bld) [#/Vol] [facility] Eosinophils/100 WBC (Bld) 0.2 % [facility] Erythrocyte distribution width (RBC) [Ratio] 15.2 % High 11.5 - 15.0 % [facility] Hematocrit (Bld) [Volume fraction] 29.5 % Low 39.0 - 51.0 % [facility] Hemoglobin (Bld) [Mass/Vol] 9.6 g/dL Low 13.0 - 17.0 g/dL [facility] Immature granulocytes (Bld) [#/Vol] 0.12 10*3/uL High [facility] Immature granulocytes/100 WBC (Bld) 1.2 % [facility] Interpretation and review of laboratory results Abnormal [facility] Lymphocytes (Bld) [#/Vol] 1.53 10*3/uL [facility] Lymphocytes/100 WBC (Bld) 15.3 % [facility] MCH (RBC) [Entitic mass] 30.2 pg 26.0 - 34.0 pg [facility] MCHC (RBC) [Mass/Vol] 32.5 g/dL 30.5 - 36.0 g/dL [facility] MCV (RBC) [Entitic vol] 92.8 fL 80.0 - 100.0 fL [facility] Monocytes (Bld) [#/Vol] 0.77 10*3/uL [facility] Monocytes/100 WBC (Bld) 7.7 % [facility] Neutrophils (Bld) [#/Vol] 7.54 10*3/uL High [facility] Neutrophils/100 WBC (Bld) 75.2 % [facility] Nucleated RBC (Bld) [#/Vol] [facility] Nucleated RBC/100 WBC (Bld) [Ratio] 0.0 % /100 WBC [facility] Platelet mean volume (Bld) [Entitic vol] 10.0 fL 9.0 - 12.7 fL [facility] Platelets (Bld) [#/Vol] 196 10*3/uL [facility] RBC (Bld) [#/Vol] 3.18 10*6/uL Low 4.20 - 6.0 0 m/uL [facility] WBC (Bld) [#/Vol] 10.02 10*3/uL [facility] Basophils (Bld) [#/Vol] 0.04 10*3/uL Normal <0.11 [facility] Comment on above: Order Comment: Speci men Type: BLOOD SPECIMENOrdering Facility: [facility] Address: [address] [place] [address] Performed By: #### 5 7021-8 ####[facility] LABCLIA [id number] [place] [address] Basophils/100 WBC (Bld) 0.4 % Normal [facility] Comment on above: Order Comment: Speci men Type: BLOOD SPECIMENOrdering Facility: [facility] Address: [address] [place] [address] Performed By: #### 5 7021-8 ####[facility] LABCLIA [id number] [place] [address] Differential cell count method Nom (Bld) Auto Normal [facility] Comment on above: Order Comment: Speci men Type: BLOOD SPECIMENOrdering Facility: [facility] Address: [address] [place] [address] Performed By: #### 5 7021-8 ####[facility] LABCLIA [id number] [place] [address] Eosinophils (Bld) [#/Vol] 10*3/uL Normal <0.46 [facility] Comment on above: Order Comment: Speci men Type: BLOOD SPECIMENOrdering Facility: [facility] Address: [address] [place] [address] Performed By: #### 5 7021-8 ####[facility] LABCLIA [id number] [place] [address] Eosinophils/100 WBC (Bld) 0.2 % Normal [facility] Comment on above: Order Comment: Speci men Type: BLOOD SPECIMENOrdering Facility: [facility] Address: [address] [place] [address] Performed By: #### 5 7021-8 ####[facility] LABCLIA [id number] [place] [address] Erythrocyte distribution width (RBC) [Ratio] 15.2 % High 11.5-15.0 [facility] Comment on above: Order Comment: Speci men Type: BLOOD SPECIMENOrdering Facility: [facility] Address: [address] [place] [address] Performed By: #### 5 7021-8 ####[facility] LABCLIA [id number] [place] [address] Hematocrit (Bld) [Volume fraction] 29.5 % Low 39.0-51.0 [facility] Comment on above: Order Comment: Speci men Type: BLOOD SPECIMENOrdering Facility: [facility] Address: [address] [place] [address] Performed By: #### 5 7021-8 ####[facility] LABIA [id number] [place] [address] Hemoglobin (Bld) [Mass/Vol] 9.6 g/dL Low 13.0-17.0 [facility] Comment on above: Order Comment: Speci men Type: BLOOD SPECIMENOrdering Facility: [facility] Address: [address] [place] [address] Performed By: #### 5 7021-8 ####[facility] LABCLIA [id number] [place] [address] Immature granulocytes (Bld) [#/Vol] 0.12 10*3/uL High <0.10 [facility] Comment on above: Order Comment: Speci men Type: BLOOD SPECIMENOrdering Facility: [facility] Address: [address] [place] [address] Performed By: #### 5 7021-8 ####[facility] LABIA [id number] [place] [address] Immature granulocytes/100 WBC (Bld) 1.2 % Normal [facility] Comment on above: Order Comment: Speci men Type: BLOOD SPECIMENOrdering Facility: [facility] Address: [address] [place] [address] Performed By: #### 5 7021-8 ####[facility] LABCLIA [id number] [place] [address] Lymphocytes (Bld) [#/Vol] 1.53 10*3/uL Normal 1.00-4.00 [facility] Comment on above: Order Comment: Speci men Type: BLOOD SPECIMENOrdering Facility: [facility] Address: [address] [place] [address] Performed By: #### 5 7021-8 ####[facility] LABCLIA [id number] [place] [address] Lymphocytes/100 WBC (Bld) 15.3 % Normal [facility] Comment on above: Order Comment: Speci men Type: BLOOD SPECIMENOrdering Facility: [facility] Address: [address] [place] [address] Performed By: #### 5 7021-8 ####[facility] LABCLIA [id number] [place] [address] MCH (RBC) [Entitic mass] 30.2 pg Normal 26.0-34.0 [facility] Comment on above: Order Comment: Speci men Type: BLOOD SPECIMENOrdering Facility: [facility] Address: [address] [place] [address] Performed By: #### 5 7021-8 ####[facility] LABCLIA [id number] [place] [address] MCHC (RBC) [Mass/Vol] 32.5 g/dL Normal 30.5-36.0 [facility] Comment on above: Order Comment: Speci men Type: BLOOD SPECIMENOrdering Facility: [facility] Address: [address] [place] [address] Performed By: #### 5 7021-8 ####[facility] LABCLIA [id number] [place] [address] MCV (RBC) [Entitic vol] 92.8 fL Normal 80.0-100.0 [facility] Comment on above: Order Comment: Speci men Type: BLOOD SPECIMENOrdering Facility: [facility] Address: [address] [place] [address] Performed By: #### 5 7021-8 ####[facility] LABCLIA [id number] [place] [address] Monocytes (Bld) [#/Vol] 0.77 10*3/uL Normal <0.87 [facility] Comment on above: Order Comment: Speci men Type: BLOOD SPECIMENOrdering Facility: [facility] Address: [address] [place] [address] Performed By: #### 5 7021-8 ####[facility] LABCLIA [id number] [place] [address] Monocytes/100 WBC (Bld) 7.7 % Normal [facility] Comment on above: Order Comment: Speci men Type: BLOOD SPECIMENOrdering Facility: [facility] Address: [address] [place] [address] Performed By: #### 5 7021-8 ####[facility] LABCLIA [id number] [place] [address] Neutrophils (Bld) [#/Vol] 7.54 10*3/uL High 1.45-7.50 [facility] Comment on above: Order Comment: Speci men Type: BLOOD SPECIMENOrdering Facility: [facility] Address: [address] [place] [address] Performed By: #### 5 7021-8 ####[facility] LABCLIA [id number] [place] [address] Neutrophils/100 WBC (Bld) 75.2 % Normal [facility] Comment on above: Order Comment: Speci men Type: BLOOD SPECIMENOrdering Facility: [facility] Address: [address] [place] [address] Performed By: #### 5 7021-8 ####[facility] LABCLIA [id number] [place] [address] Nucleated RBC (Bld) [#/Vol] 10*3/uL Normal <0.01 [facility] Comment on above: Order Comment: Speci men Type: BLOOD SPECIMENOrdering Facility: [facility] Address: [address] [place] [address] Performed By: #### 5 7021-8 ####[facility] LABCLIA [id number] [place] [address] Nucleated RBC/100 WBC (Bld) [Ratio] 0.0 /100 WBC Normal [facility] Comment on above: Order Comment: Speci men Type: BLOOD SPECIMENOrdering Facility: [facility] Address: [address] [place] [address] Performed By: #### 5 7021-8 ####[facility] LABCLIA [id number] [place] [address] Platelet mean volume (Bld) [Entitic vol] 10.0 fL Normal 9.0-12.7 [facility] Comment on above: Order Comment: Speci men Type: BLOOD SPECIMENOrdering Facility: [facility] Address: [address] [place] [address] Performed By: #### 5 7021-8 ####[facility] LABCLIA [id number] [place] [address] Platelets (Bld) [#/Vol] 196 10*3/uL Normal 150-400 [facility] Comment on above: Order Comment: Speci men Type: BLOOD SPECIMENOrdering Facility: [facility] Address: [address] [place] [address] Performed By: #### 5 7021-8 ####[facility] LABCLIA [id number] [place] [address] RBC (Bld) [#/Vol] 3.18 10*6/uL Low 4.20-6.00 [facility] Comment on above: Order Comment: Speci men Type: BLOOD SPECIMENOrdering Facility: [facility] Address: [address] [place] [address] Performed By: #### 5 7021-8 ####[facility] LABCLIA [id number] [place] [address] WBC (Bld) [#/Vol] 10.02 10*3/uL Normal 3.70-11.00 [facility] Comment on above: Order Comment: Speci men Type: BLOOD SPECIMENOrdering Facility: [facility] Address: [address] [place] [address] Performed By: #### 5 7021-8 ####[facility] LABCLIA [id number] [place] [address] CNNURSEon 10-11-2023 CNNURSE Normal [facility] CNOVSPon 10-11-2023 CNOVSP Normal [facility] Comprehensive metabolic 2000 panelon 10-11-2023 Albumin [Mass/Vol] 2.9 g/dL Low 3.9 - 4.9 g/dL [facility] ALP [Catalytic activity/Vol] 111 U/L 38 - 113 U/L [facility] Comment on above: Results may be false ly decreased due to interference from hemolysis. Suggest reorder as clinically indicated. ALT [Catalytic activity/Vol] 18 U/L 10 - 54 U/L [facility] Comment on above: Results may be false ly increased due to interference from hemolysis. Suggest reorder as clinically indicated. Anion gap [Moles/Vol] 9 mmol/L 9 - 18 mmol/L [facility] AST [Catalytic activity/Vol] 52 U/L High 14 - 40 U/L [facility] Comment on above: Results may be false ly increased due to interference from hemolysis. Suggest reorder as clinically indicated. Bilirubin [Mass/Vol] 0.5 mg/dL 0.2 - 1 .3 mg/dL [facility] Calcium [Mass/Vol] 9.7 mg/dL 8.5 - 10. 2 mg/dL [facility] Chloride [Moles/Vol] 96 mmol/L Low 97 - 10 5 mmol/L [facility] CO2 [Moles/Vol] 23 mmol/L 22 - 30 mmol/L [facility] Creatinine [Mass/Vol] 0.71 mg/dL Low 0.73 - 1.22 mg/dL [facility] GFR/1.73 sq M.predicted among non-blacks MDRD (S/P/Bld) [Vol rate/Area] 97 mL/min/{1.73_m2} - PINF [facility] Comment on above: Estimated Glomerular [...] 158 mg/dL High 74 - 99 mg/dL [facility] Comment on above: The [place] Diab[employer] s Association (ADA) provides guidance for [...] Standards of Medical Care in Diabetes 2016, [place] [employer] Association. Diabetes Care. 2016.39(Suppl 1). Interpretation and review of laboratory results Abnormal [facility] Potassium [Moles/Vol] [facility] Comment on above: Unable to assay due to interference from hemolysis. Suggest reorder as clinically indicated. Protein [Mass/Vol] 7.0 g/dL 6.3 - 8.0 g/dL [facility] Sodium [Moles/Vol] 128 mmol/L Low 136 - 144 mmol/L [facility] Urea nitrogen [Mass/Vol] 14 mg/dL 9 - 24 mg/dL [facility] Albumin [Mass/Vol] 2.9 g/dL Low 3.9-4.9 [facility] Comment on above: Order Comment: Speci men Type: BLOOD SPECIMENOrdering Facility: [facility] Address: [address] [place] [address] Performed By: #### 2 4323-8 ####[facility] LABCLIA [id number] [place] [address] [place] ALP [Catalytic activity/Vol] 111 U/L Normal 38-113 [facility] Comment on above: Order Comment: Speci men Type: BLOOD SPECIMENOrdering Facility: [facility] Address: [address] [place] [address] Result Comment: Resu lts may be falsely decreased due to interference from hemolysis. Suggest reorder as clinically indicated. Performed By: #### 2 4323-8 ####[facility] LABCLIA [id number] [place] [address] [place] ALT [Catalytic activity/Vol] 18 U/L Normal 10-54 [facility] Comment on above: Order Comment: Speci men Type: BLOOD SPECIMENOrdering Facility: [facility] Address: [address] [place] [address] Result Comment: Resu lts may be falsely increased due to interference from hemolysis. Suggest reorder as clinically indicated. Performed By: #### 2 4323-8 ####[facility] LABCLIA [id number] [place] [address] [place] Anion gap [Moles/Vol] 9 mmol/L Normal 9-18 [facility] Comment on above: Order Comment: Speci men Type: BLOOD SPECIMENOrdering Facility: [facility] Address: [address] [place] [address] Performed By: #### 2 4323-8 ####[facility] LABCLIA [id number] [place] [address] [place] AST [Catalytic activity/Vol] 52 U/L High 14-40 [facility] Comment on above: Order Comment: Speci men Type: BLOOD SPECIMENOrdering Facility: [facility] Address: [address] [place] [address] Result Comment: Resu lts may be falsely increased due to interference from hemolysis. Suggest reorder as clinically indicated. Performed By: #### 2 4323-8 ####[facility] LABCLIA [id number] [place] [address] [place] Bilirubin [Mass/Vol] 0.5 mg/dL Normal 0.2-1.3 [facility] Comment on above: Order Comment: Speci men Type: BLOOD SPECIMENOrdering Facility: [facility] Address: [address] [place] [address] Performed By: #### 2 4323-8 ####[facility] LABCLIA [id number] [place] [address] [place] Calcium [Mass/Vol] 9.7 mg/dL Normal 8.5-10.2 [facility] Comment on above: Order Comment: Speci men Type: BLOOD SPECIMENOrdering Facility: [facility] Address: [address] [place] [address] Performed By: #### 2 4323-8 ####[facility] LABCLIA [id number] [place] [address] [place] Chloride [Moles/Vol] 96 mmol/L Low 97-105 [facility] Comment on above: Order Comment: Speci men Type: BLOOD SPECIMENOrdering Facility: [facility] Address: [address] [place] [address] Performed By: #### 2 4323-8 ####[facility] LABCLIA [id number] [place] [address] [place] CO2 [Moles/Vol] 23 mmol/L Normal 22-30 [facility] Comment on above: Order Comment: Speci men Type: BLOOD SPECIMENOrdering Facility: [facility] Address: [address] [place] [id number] Performed By: #### 2 4323-8 ####[facility] LABCLIA [id number] [place] [address] [place] Creatinine [Mass/Vol] 0.71 mg/dL Low 0.73-1.22 [facility] Comment on above: Order Comment: Noemí hoff Type: BLOOD SPECIMENOrdering Facility: [facility] Address: [address] [place] [address] Performed By: #### 2 4323-8 ####[facility] [id number] [place] [address] [place] Creatinine and Glomerular filtration rate.predicted panel (S/P/Bld) 97 mL/min/1.73m??? Normal >=60 [facility] Comment on above: Order Comment: Noemí hoff Type: BLOOD SPECIMENOrdering Facility: [facility] Address: [address] [place] [address] Result Comment: Kathy mated Glomerular Filtration Rate [...] actual GFR. Performed By: #### 2 4323-8 ####[facility] LABIA [id number] [place] [address] [place] Glucose [Mass/Vol] 158 mg/dL High 74-99 [facility] Comment on above: Order Comment: Noemí hoff Type: BLOOD SPECIMENOrdering Facility: [facility] Address: [address] [place] [address] Result Comment: The [place] Diabetes Association (ADA) provides guidance for cutoff [...] Standards of Medical Care in Diabetes 2016, [place] Diabetes Association. Diabetes Care. 2016.39(Suppl 1). Performed By: #### 2 4323-8 ####[facility] LABCLIA [id number] [place] [address] [place] Potassium [Moles/Vol] Normal [facility] Comment on above: Order Comment: Speci men Type: BLOOD SPECIMENOrdering Facility: [facility] Address: [address] [place] [address] Result Comment: Unab le to assay due to interference from hemolysis. Suggest reorder as clinically indicated. Performed By: #### 2 4323-8 ####[facility] LABCLIA [id number] [place] [address] [place] Protein [Mass/Vol] 7.0 g/dL Normal 6.3-8.0 [facility] Comment on above: Order Comment: Speci men Type: BLOOD SPECIMENOrdering Facility: [facility] Address: [address] [place] [address] Performed By: #### 2 4323-8 ####[facility] LABCLIA [id number] [place] [address] [place] Sodium [Moles/Vol] 128 mmol/L Low 136-144 [facility] Comment on above: Order Comment: Speci men Type: BLOOD SPECIMENOrdering Facility: [facility] Address: [address] [place] [address] Performed By: #### 2 4323-8 ####[facility] LABCLIA [id number] [place] [address] [place] Urea nitrogen [Mass/Vol] 14 mg/dL Normal 9-24 [facility] Comment on above: Order Comment: Speci men Type: BLOOD SPECIMENOrdering Facility: [facility] Address: [address] [place] [id number] Performed By: #### 2 4323-8 ####[facility] LABCLIA [id number] [facility] [id number] [id number] [place] UA DIP, URINE (POC)on 2023 BILIRUBIN UA (POCT) Negative Negative [facility] CLARITY UA (POCT) Slightly Cloudy Cl [facility] COLOR UA (POCT) Yellow [facility] GLUCOSE UA (POCT) Negative Negative mg/dL [facility] Hemoglobin Ql (U) Negative Negative [facility] Interpretation and review of laboratory results Abnormal [facility] KETONE UA (POCT) Negative Negative mg/dL [facility] LEUKOCYTES UA (POCT) Trace Abnormal Negative [facility] NITRITE UA (POCT) Negative Negative [facility] PH UA (POCT) 6.5 4.5 - 8.0 [facility] Protein Ql (U) Negative Negative mg/dL [facility] SPECIFIC GRAVITY UA (POCT) 1.015 1.005 - 1.030 [facility] UROBILINOGEN UA (POCT) 0.2 Normal E.U./dL [facility] Location:[facility], [address] , [place], [place], [id number] [place] [address] POINT OF CARE [facility] CNPNon 10-05-2023 CNPN Normal [facility] CNPNon 10-04-2023 CNPN Normal [facility] CBC W Auto Differential pane l (Bld)on 10-03-2023 Basophils (Bld) [#/Vol] 0.04 10*3/uL [facility] Basophils/100 WBC (Bld) 0.4 % [facility] Differential cell count method Nom (Bld) Auto [facility] Eosinophils (Bld) [#/Vol] [facility] Eosinophils/100 WBC (Bld) 0.1 % [facility] Erythrocyte distribution width (RBC) [Ratio] 14.2 % 11.5 - 15.0 % [facility] Hematocrit (Bld) [Volume fraction] 29.5 % Low 39.0 - 51.0 % [facility] Hemoglobin (Bld) [Mass/Vol] 9.6 g/dL Low 13.0 - 17.0 g/dL [facility] Immature granulocytes (Bld) [#/Vol] 0.18 10*3/uL High [facility] Immature granulocytes/100 WBC (Bld) 1.8 % [facility] Interpretation and review of laboratory results Abnormal [facility] Lymphocytes (Bld) [#/Vol] 1.28 10*3/uL [facility] Lymphocytes/100 WBC (Bld) 13.0 % [facility] MCH (RBC) [Entitic mass] 31.4 pg 26.0 - 34.0 pg [facility] MCHC (RBC) [Mass/Vol] 32.5 g/dL 30.5 - 36.0 g/dL [facility] MCV (RBC) [Entitic vol] 96.4 fL 80.0 - 100.0 fL [facility] Monocytes (Bld) [#/Vol] 1.25 10*3/uL High [facility] Monocytes/100 WBC (Bld) 12.7 % [facility] Neutrophils (Bld) [#/Vol] 7.08 10*3/uL [facility] Neutrophils/100 WBC (Bld) 72.0 % [facility] Nucleated RBC (Bld) [#/Vol] [facility] Nucleated RBC/100 WBC (Bld) [Ratio] 0.0 % /100 WBC [facility] Platelet mean volume (Bld) [Entitic vol] 9.0 fL 9.0 - 12.7 fL [facility] Platelets (Bld) [#/Vol] 407 10*3/uL High [facility] RBC (Bld) [#/Vol] 3.06 10*6/uL Low 4.20 - 6.0 0 m/uL [facility] WBC (Bld) [#/Vol] 9.84 10*3/uL [facility] Basophils (Bld) [#/Vol] 0.04 10*3/uL Normal <0.11 [facility] Comment on above: Order Comment: Speci men Type: BLOOD SPECIMENOrdering Facility: [facility] Address: [address] [place] [address] Performed By: #### 5 7021-8 ####[facility] LABCLIA [id number] [place] [address] Basophils/100 WBC (Bld) 0.4 % Normal [facility] Comment on above: Order Comment: Speci men Type: BLOOD SPECIMENOrdering Facility: [facility] Address: [address] [place] [address] Performed By: #### 5 7021-8 ####[facility] LABCLIA [id number] [place] [address] Differential cell count method Nom (Bld) Auto Normal [facility] Comment on above: Order Comment: Speci men Type: BLOOD SPECIMENOrdering Facility: [facility] Address: [address] [place] [address] Performed By: #### 5 7021-8 ####[facility] LABCLIA [id number] [place] [address] Eosinophils (Bld) [#/Vol] 10*3/uL Normal <0.46 [facility] Comment on above: Order Comment: Speci men Type: BLOOD SPECIMENOrdering Facility: [facility] Address: [address] [place] [address] Performed By: #### 5 7021-8 ####[facility] LABCLIA [id number] [place] [address] Eosinophils/100 WBC (Bld) 0.1 % Normal [facility] Comment on above: Order Comment: Speci men Type: BLOOD SPECIMENOrdering Facility: [facility] Address: [address] [place] [address] Performed By: #### 5 7021-8 ####[facility] LABCLIA [id number] [place] [address] Erythrocyte distribution width (RBC) [Ratio] 14.2 % Normal 11.5-15.0 [facility] Comment on above: Order Comment: Speci men Type: BLOOD SPECIMENOrdering Facility: [facility] Address: [address] [place] [address] Performed By: #### 5 7021-8 ####[facility] LABCLIA [id number] [place] [address] Hematocrit (Bld) [Volume fraction] 29.5 % Low 39.0-51.0 [facility] Comment on above: Order Comment: Speci men Type: BLOOD SPECIMENOrdering Facility: [facility] Address: [address] [place] [address] Performed By: #### 5 7021-8 ####[facility] LABCLIA [id number] [place] [address] Hemoglobin (Bld) [Mass/Vol] 9.6 g/dL Low 13.0-17.0 [facility] Comment on above: Order Comment: Speci men Type: BLOOD SPECIMENOrdering Facility: [facility] Address: [address] [place] [address] Performed By: #### 5 7021-8 ####[facility] LABCLIA [id number] [place] [address] Immature granulocytes (Bld) [#/Vol] 0.18 10*3/uL High <0.10 [facility] Comment on above: Order Comment: Speci men Type: BLOOD SPECIMENOrdering Facility: [facility] Address: [address] [place] [address] Performed By: #### 5 7021-8 ####[facility] LABCLIA [id number] [place] [address] Immature granulocytes/100 WBC (Bld) 1.8 % Normal [facility] Comment on above: Order Comment: Speci men Type: BLOOD SPECIMENOrdering Facility: [facility] Address: [address] [place] [address] Performed By: #### 5 7021-8 ####[facility] LABIA [id number] [place] [address] Lymphocytes (Bld) [#/Vol] 1.28 10*3/uL Normal 1.00-4.00 [facility] Comment on above: Order Comment: Speci men Type: BLOOD SPECIMENOrdering Facility: [facility] Address: [address] [place] [address] Performed By: #### 5 7021-8 ####[facility] LABCLIA [id number] [place] [address] Lymphocytes/100 WBC (Bld) 13.0 % Normal [facility] Comment on above: Order Comment: Speci men Type: BLOOD SPECIMENOrdering Facility: [facility] Address: [address] [place] [address] Performed By: #### 5 7021-8 ####[facility] LABCLIA [id number] [place] [address] MCH (RBC) [Entitic mass] 31.4 pg Normal 26.0-34.0 [facility] Comment on above: Order Comment: Speci men Type: BLOOD SPECIMENOrdering Facility: [facility] Address: [address] [place] [address] Performed By: #### 5 7021-8 ####[facility] LABCLIA [id number] [place] [address] MCHC (RBC) [Mass/Vol] 32.5 g/dL Normal 30.5-36.0 [facility] Comment on above: Order Comment: Speci men Type: BLOOD SPECIMENOrdering Facility: [facility] Address: [address] [place] [address] Performed By: #### 5 7021-8 ####[facility] LABCLIA [id number] [place] [address] MCV (RBC) [Entitic vol] 96.4 fL Normal 80.0-100.0 [facility] Comment on above: Order Comment: Speci men Type: BLOOD SPECIMENOrdering Facility: [facility] Address: [address] [place] [address] Performed By: #### 5 7021-8 ####[facility] LABCLIA [id number] [place] [address] Monocytes (Bld) [#/Vol] 1.25 10*3/uL High <0.87 [facility] Comment on above: Order Comment: Speci men Type: BLOOD SPECIMENOrdering Facility: [facility] Address: [address] [place] [address] Performed By: #### 5 7021-8 ####[facility] LABCLIA [id number] [place] [address] Monocytes/100 WBC (Bld) 12.7 % Normal [facility] Comment on above: Order Comment: Speci men Type: BLOOD SPECIMENOrdering Facility: [facility] Address: [address] [place] [address] Performed By: #### 5 7021-8 ####[facility] LABCLIA [id number] [place] [address] Neutrophils (Bld) [#/Vol] 7.08 10*3/uL Normal 1.45-7.50 [facility] Comment on above: Order Comment: Speci men Type: BLOOD SPECIMENOrdering Facility: [facility] Address: [address] [place] [address] Performed By: #### 5 7021-8 ####[facility] LABCLIA [id number] [place] [address] Neutrophils/100 WBC (Bld) 72.0 % Normal [facility] Comment on above: Order Comment: Speci men Type: BLOOD SPECIMENOrdering Facility: [facility] Address: [address] [place] [address] Performed By: #### 5 7021-8 ####[facility] LABCLIA [id number] [place] [address] Nucleated RBC (Bld) [#/Vol] 10*3/uL Normal <0.01 [facility] Comment on above: Order Comment: Speci men Type: BLOOD SPECIMENOrdering Facility: [facility] Address: [address] [place] [address] Performed By: #### 5 7021-8 ####[facility] LABCLIA [id number] [place] [address] Nucleated RBC/100 WBC (Bld) [Ratio] 0.0 /100 WBC Normal [facility] Comment on above: Order Comment: Speci men Type: BLOOD SPECIMENOrdering Facility: [facility] Address: [address] [place] [address] Performed By: #### 5 7021-8 ####[facility] LABCLIA [id number] [place] [address] Platelet mean volume (Bld) [Entitic vol] 9.0 fL Normal 9.0-12.7 [facility] Comment on above: Order Comment: Speci men Type: BLOOD SPECIMENOrdering Facility: [facility] Address: [address] [place] [address] Performed By: #### 5 7021-8 ####[facility] LABCLIA [id number] [place] [address] Platelets (Bld) [#/Vol] 407 10*3/uL High 150-400 [facility] Comment on above: Order Comment: Speci men Type: BLOOD SPECIMENOrdering Facility: [facility] Address: [address] [place] [address] Performed By: #### 5 7021-8 ####[facility] LABCLIA [id number] [place] [address] RBC (Bld) [#/Vol] 3.06 10*6/uL Low 4.20-6.00 [facility] Comment on above: Order Comment: Speci men Type: BLOOD SPECIMENOrdering Facility: [facility] Address: [address] [place] [address] Performed By: #### 5 7021-8 ####[facility] LABCLIA [id number] [place] [address] WBC (Bld) [#/Vol] 9.84 10*3/uL Normal 3.70-11.00 [facility] Comment on above: Order Comment: Speci men Type: BLOOD SPECIMENOrdering Facility: [facility] Address: [address] [place] [address] Performed By: #### 5 7021-8 ####[facility] LABCLIA [id number] [place] [address] CNOVSPon 10-03-2023 CNOVSP Normal [facility] CNPNon 10-03-2023 CNPN Normal [facility] Cancer Ag19-9 SerPl-aCncon 0 10-03-2023 Cancer Ag 19-9 Qn 234.0 [arb'U]/mL High <36.0 C [facility] Comment on above: Order Comment: Speci men Type: BLOOD SPECIMENOrdering Facility: [facility] Address: [address] [place] [address] Result Comment: [facility] er antigen 19-9 test is used as an aid in monitoring response to treatment or recurrence in patients with established pancreatic, hepatobiliary, or gastrointestinal malignancies. Clinical correlation is required.The CA 19-9 Antigen test was performed using the [employer] DXI paramagnetic particle chemiluminescent immunoassay method. Results obtained with different assay methods or kits cannot be used interchangeably. Performed By: #### 2 4108-3 ####[facility] LABCLIA [id number] [place] [address] [place] [facility] Comprehensive metabolic 2000 panelOrdered By: Elizabeth Yu on 10-03-2023 Albumin [Mass/Vol] 3.0 g/dL Low 3.9 - 4.9 g/dL [facility] ALP [Catalytic activity/Vol] 110 U/L 38 - 113 U/L [facility] ALT [Catalytic activity/Vol] 10 U/L 10 - 54 U/L [facility] Anion gap [Moles/Vol] 8 mmol/L Low 9 - 18 mmol/L [facility] AST [Catalytic activity/Vol] 11 U/L Low 14 - 40 U/L [facility] Bilirubin [Mass/Vol] 0.6 mg/dL 0.2 - 1 .3 mg/dL [facility] Calcium [Mass/Vol] 10.4 mg/dL High 8.5 - 10. 2 mg/dL [facility] Chloride [Moles/Vol] 100 mmol/L 97 - 10 5 mmol/L [facility] CO2 [Moles/Vol] 27 mmol/L 22 - 30 mmol/L [facility] Creatinine [Mass/Vol] 0.83 mg/dL 0.73 - 1.22 mg/dL [facility] GFR/1.73 sq M.predicted among non-blacks MDRD (S/P/Bld) [Vol rate/Area] 93 mL/min/{1.73_m2} - PINF [facility] Comment on above: Estimated Glomerular [...] 167 mg/dL High 74 - 99 mg/dL [facility] Comment on above: The [place] Diabete s Association (ADA) provides guidance for [...] Standards of Medical Care in Diabetes 2016, [place] [employer] Association. Diabetes Care. 2016.39(Suppl 1). Interpretation and review of laboratory results Abnormal [facility] Potassium [Moles/Vol] 4.3 mmol/L 3.7 - 5.1 mmol/L [facility] Protein [Mass/Vol] 6.9 g/dL 6.3 - 8.0 g/dL [facility] Sodium [Moles/Vol] 135 mmol/L Low 136 - 144 mmol/L [facility] Urea nitrogen [Mass/Vol] 13 mg/dL 9 - 24 mg/dL [facility] Comprehensive metabolic 2000 panelon 10-03-2023 Albumin [Mass/Vol] 3.0 g/dL Low 3.9-4.9 [facility] Comment on above: Order Comment: Speci men Type: BLOOD SPECIMENOrdering Facility: [facility] Address: [address] [place] [address] Performed By: #### 2 4323-8 ####[facility] LABCLIA [id number] [place] [address] ALP [Catalytic activity/Vol] 110 U/L Normal 38-113 [facility] Comment on above: Order Comment: Speci men Type: BLOOD SPECIMENOrdering Facility: [facility] Address: [address] [place] [address] Performed By: #### 2 4323-8 ####[facility] LABCLIA [id number] [place] [address] ALT [Catalytic activity/Vol] 10 U/L Normal 10-54 [facility] Comment on above: Order Comment: Speci men Type: BLOOD SPECIMENOrdering Facility: [facility] Address: [address] [place] [address] Performed By: #### 2 4323-8 ####[facility] LABCLIA [id number] [place] [address] Anion gap [Moles/Vol] 8 mmol/L Low 9-18 [facility] Comment on above: Order Comment: Speci men Type: BLOOD SPECIMENOrdering Facility: [facility] Address: [address] [place] [address] Performed By: #### 2 4323-8 ####[facility] LABCLIA [id number] [place] [address] AST [Catalytic activity/Vol] 11 U/L Low 14-40 [facility] Comment on above: Order Comment: Speci men Type: BLOOD SPECIMENOrdering Facility: [facility] Address: [address] [place] [address] Performed By: #### 2 4323-8 ####[facility] LABCLIA [id number] [place] [address] Bilirubin [Mass/Vol] 0.6 mg/dL Normal 0.2-1.3 [facility] Comment on above: Order Comment: Speci men Type: BLOOD SPECIMENOrdering Facility: [facility] Address: [address] [place] [address] Performed By: #### 2 4323-8 ####[facility] LABCLIA [id number] [place] [address] Calcium [Mass/Vol] 10.4 mg/dL High 8.5-10.2 [facility] Comment on above: Order Comment: Speci men Type: BLOOD SPECIMENOrdering Facility: [facility] Address: [address] [place] [address] Performed By: #### 2 4323-8 ####[facility] LABCLIA [id number] [place] [address] Chloride [Moles/Vol] 100 mmol/L Normal 97-105 [facility] Comment on above: Order Comment: Speci men Type: BLOOD SPECIMENOrdering Facility: [facility] Address: [address] [place] [address] Performed By: #### 2 4323-8 ####[facility] LABCLIA [id number] [place] [address] CO2 [Moles/Vol] 27 mmol/L Normal 22-30 [facility] Comment on above: Order Comment: Speci men Type: BLOOD SPECIMENOrdering Facility: [facility] Address: [address] [place] [address] Performed By: #### 2 4323-8 ####[facility] LABCLIA [id number] [place] [address] Creatinine [Mass/Vol] 0.83 mg/dL Normal 0.73-1.22 [facility] Comment on above: Order Comment: Speci men Type: BLOOD SPECIMENOrdering Facility: [facility] Address: [address] [place] [address] Performed By: #### 2 4323-8 ####[facility] LABCLIA [id number] [place] [address] Creatinine and Glomerular filtration rate.predicted panel (S/P/Bld) 93 mL/min/1.73m??? Normal >=60 [facility] Comment on above: Order Comment: Noemí hoff Type: BLOOD SPECIMENOrdering Facility: [facility] Address: [address] [place] [address] Result Comment: Kathy mated Glomerular Filtration Rate [...] actual GFR. Performed By: #### 2 4323-8 ####[facility] LABCLIA [id number] [place] [address] Glucose [Mass/Vol] 167 mg/dL High 74-99 [facility] Comment on above: Order Comment: Noemí hoff Type: BLOOD SPECIMENOrdering Facility: [facility] Address: [address] [place] [address] Result Comment: The [place] Diabetes Association (ADA) provides guidance for cutoff [...] Standards of Medical Care in Diabetes 2016, [place] [employer]. Diabetes Care. 2016.39(Suppl 1). Performed By: #### 2 4323-8 ####[facility] LABCLIA [id number] [place] [address] Potassium [Moles/Vol] 4.3 mmol/L Normal 3.7-5.1 [facility] Comment on above: Order Comment: Speci men Type: BLOOD SPECIMENOrdering Facility: [facility] Address: [address] [place], [place] [address] Performed By: #### 2 4323-8 ####[facility] LABCLIA [id number] [place] [address] Protein [Mass/Vol] 6.9 g/dL Normal 6.3-8.0 [facility] Comment on above: Order Comment: Speci men Type: BLOOD SPECIMENOrdering Facility: [facility] Address: [address] [place] [address] Performed By: #### 2 4323-8 ####[facility] LABCLIA [id number] [place] [address] Sodium [Moles/Vol] 135 mmol/L Low 136-144 [facility] Comment on above: Order Comment: Speci men Type: BLOOD SPECIMENOrdering Facility: [facility] Address: [address] [place] [address] Performed By: #### 2 4323-8 ####[facility] LABCLIA [id number] [place] [address] Urea nitrogen [Mass/Vol] 13 mg/dL Normal 9-24 [facility] Comment on above: Order Comment: Speci men Type: BLOOD SPECIMENOrdering Facility: [facility] Address: [address] [place] [address] Performed By: #### 2 4323-8 ####[facility] LABCLIA [id number] [place] [address] XR CHEST 2V FRONTAL/LATon XR CHEST 2V FRONTAL/LAT Normal [facility] XR Chest PA and Lateralon IMPRESSION: No [...] any questions regarding this interpretation, please call [phone]. If you are unable to reach us at the number above, please feel free to contact [facility] at [phone]. DIVISION OF RADIOLOGY * * *Final Report* [...] soft tissues: Unremarkable. DIVISION OF RADIOLOGY Provider, [facility] - 10/03/2023 * * *Final Report* * [...] any questions regarding this interpretation, please call [phone]. If you are unable to reach us at the number above, please feel free to contact [facility] eRadiology at [phone]. [facility] Radiology Study observation (narrative) [facility] XR Chest PA and LateralOrder ed By: Ccf Provider on 10-03-2023 [facility] CNPNon 09-25-2023 CNPN Normal [facility] CNPNon 09-18-2023 CNPN Normal [facility] CBC W Auto Differential pane l (Bld)on 09-13-2023 Basophils (Bld) [#/Vol] [facility] Basophils/100 WBC (Bld) 0.5 % [facility] Differential cell count method Nom (Bld) Auto [facility] Eosinophils (Bld) [#/Vol] 0.03 10*3/uL [facility] Eosinophils/100 WBC (Bld) 0.8 % [facility] Erythrocyte distribution width (RBC) [Ratio] 14.6 % 11.5 - 15.0 % [facility] Hematocrit (Bld) [Volume fraction] 35.3 % Low 39.0 - 51.0 % [facility] Hemoglobin (Bld) [Mass/Vol] 11.4 g/dL Low 13.0 - 17.0 g/dL [facility] Immature granulocytes (Bld) [#/Vol] [facility] Immature granulocytes/100 WBC (Bld) 0.3 % [facility] Interpretation and review of laboratory results Abnormal [facility] Lymphocytes (Bld) [#/Vol] 1.33 10*3/uL [facility] Lymphocytes/100 WBC (Bld) 34.2 % [facility] MCH (RBC) [Entitic mass] 33.2 pg 26.0 - 34.0 pg [facility] MCHC (RBC) [Mass/Vol] 32.3 g/dL 30.5 - 36.0 g/dL [facility] MCV (RBC) [Entitic vol] 102.9 fL High 80.0 - 100.0 fL [facility] Monocytes (Bld) [#/Vol] 0.59 10*3/uL [facility] Monocytes/100 WBC (Bld) 15.2 % [facility] Neutrophils (Bld) [#/Vol] 1.91 10*3/uL [facility] Neutrophils/100 WBC (Bld) 49.0 % [facility] Nucleated RBC (Bld) [#/Vol] NINF [facility] Nucleated RBC/100 WBC (Bld) [Ratio] 0.0 % /100 WBC [facility] Platelet mean volume (Bld) [Entitic vol] 10.0 fL 9.0 - 12.7 fL [facility] Platelets (Bld) [#/Vol] 255 10*3/uL [facility] RBC (Bld) [#/Vol] 3.43 10*6/uL Low 4.20 - 6.0 0 m/uL [facility] WBC (Bld) [#/Vol] 3.89 10*3/uL [facility] Basophils (Bld) [#/Vol] 10*3/uL Normal <0.11 [facility] Comment on above: Order Comment: Speci men Type: BLOOD SPECIMENOrdering Facility: [facility] Address: [address] [place] [address] Performed By: #### 5 7021-8 ####[facility] LABCLIA [id number] [place] [address] Basophils/100 WBC (Bld) 0.5 % Normal [facility] Comment on above: Order Comment: Speci men Type: BLOOD SPECIMENOrdering Facility: [facility] Address: [address] [place] [address] Performed By: #### 5 7021-8 ####[facility] LABCLIA [id number] [place] [address] Differential cell count method Nom (Bld) Auto Normal [facility] Comment on above: Order Comment: Speci men Type: BLOOD SPECIMENOrdering Facility: [facility] Address: [address] [place] [address] Performed By: #### 5 7021-8 ####[facility] LABCLIA [id number] [place] [address] Eosinophils (Bld) [#/Vol] 0.03 10*3/uL Normal <0.46 [facility] Comment on above: Order Comment: Speci men Type: BLOOD SPECIMENOrdering Facility: [facility] Address: [address] [place] [address] Performed By: #### 5 7021-8 ####[facility] LABCLIA [id number] [place] [address] Eosinophils/100 WBC (Bld) 0.8 % Normal [facility] Comment on above: Order Comment: Speci men Type: BLOOD SPECIMENOrdering Facility: [facility] Address: [address] [place] [address] Performed By: #### 5 7021-8 ####[facility] LABCLIA [id number] [place] [address] Erythrocyte distribution width (RBC) [Ratio] 14.6 % Normal 11.5-15.0 [facility] Comment on above: Order Comment: Speci men Type: BLOOD SPECIMENOrdering Facility: [facility] Address: [address] [place] [address] Performed By: #### 5 7021-8 ####[facility] LABCLIA [id number] [place] [address] Hematocrit (Bld) [Volume fraction] 35.3 % Low 39.0-51.0 [facility] Comment on above: Order Comment: Speci men Type: BLOOD SPECIMENOrdering Facility: [facility] Address: [address] [place] [address] Performed By: #### 5 7021-8 ####[facility] LABCLIA [id number] [place] [address] Hemoglobin (Bld) [Mass/Vol] 11.4 g/dL Low 13.0-17.0 [facility] Comment on above: Order Comment: Speci men Type: BLOOD SPECIMENOrdering Facility: [facility] Address: [address] [place] [address] Performed By: #### 5 7021-8 ####[facility] LABCLIA [id number] [place] [address] Immature granulocytes (Bld) [#/Vol] 10*3/uL Normal <0.10 [facility] Comment on above: Order Comment: Speci men Type: BLOOD SPECIMENOrdering Facility: [facility] Address: [address] [place] [address] Performed By: #### 5 7021-8 ####[facility] LABCLIA [id number] [place] [address] Immature granulocytes/100 WBC (Bld) 0.3 % Normal [facility] Comment on above: Order Comment: Speci men Type: BLOOD SPECIMENOrdering Facility: [facility] Address: [address] [place] [address] Performed By: #### 5 7021-8 ####[facility] LABCLIA [id number] [place] [address] Lymphocytes (Bld) [#/Vol] 1.33 10*3/uL Normal 1.00-4.00 [facility] Comment on above: Order Comment: Speci men Type: BLOOD SPECIMENOrdering Facility: [facility] Address: [address] [place] [address] Performed By: #### 5 7021-8 ####[facility] LABCLIA [id number] [place] [address] Lymphocytes/100 WBC (Bld) 34.2 % Normal [facility] Comment on above: Order Comment: Speci men Type: BLOOD SPECIMENOrdering Facility: [facility] Address: [address] [place] [address] Performed By: #### 5 7021-8 ####[facility] LABCLIA [id number] [place] [address] MCH (RBC) [Entitic mass] 33.2 pg Normal 26.0-34.0 [facility] Comment on above: Order Comment: Speci men Type: BLOOD SPECIMENOrdering Facility: [facility] Address: [address] [place] [address] Performed By: #### 5 7021-8 ####[facility] LABCLIA [id number] [place] [address] MCHC (RBC) [Mass/Vol] 32.3 g/dL Normal 30.5-36.0 [facility] Comment on above: Order Comment: Speci men Type: BLOOD SPECIMENOrdering Facility: [facility] Address: [address] [place] [address] Performed By: #### 5 7021-8 ####[facility] LABIA [id number] [place] [address] MCV (RBC) [Entitic vol] 102.9 fL High 80.0-100.0 [facility] Comment on above: Order Comment: Speci men Type: BLOOD SPECIMENOrdering Facility: [facility] Address: [address] [place] [address] Performed By: #### 5 7021-8 ####[facility] LABCLIA [id number] [place] [address] Monocytes (Bld) [#/Vol] 0.59 10*3/uL Normal <0.87 [facility] Comment on above: Order Comment: Speci men Type: BLOOD SPECIMENOrdering Facility: [facility] Address: [address] [place] [address] Performed By: #### 5 7021-8 ####[facility] LABCLIA [id number] [place] [address] Monocytes/100 WBC (Bld) 15.2 % Normal [facility] Comment on above: Order Comment: Speci men Type: BLOOD SPECIMENOrdering Facility: [facility] Address: [address] [place] [address] Performed By: #### 5 7021-8 ####[facility] LABCLIA [id number] [place] [address] Neutrophils (Bld) [#/Vol] 1.91 10*3/uL Normal 1.45-7.50 [facility] Comment on above: Order Comment: Speci men Type: BLOOD SPECIMENOrdering Facility: [facility] Address: [address] [place] [address] Performed By: #### 5 7021-8 ####[facility] LABCLIA [id number] [place] [address] Neutrophils/100 WBC (Bld) 49.0 % Normal [facility] Comment on above: Order Comment: Speci men Type: BLOOD SPECIMENOrdering Facility: [facility] Address: [address] [place] [address] Performed By: #### 5 7021-8 ####[facility] LABCLIA [id number] [place] [address] Nucleated RBC (Bld) [#/Vol] 10*3/uL Normal <0.01 [facility] Comment on above: Order Comment: Speci men Type: BLOOD SPECIMENOrdering Facility: [facility] Address: [address] [place] [address] Performed By: #### 5 7021-8 ####[facility] LABCLIA [id number] [place] [address] Nucleated RBC/100 WBC (Bld) [Ratio] 0.0 /100 WBC Normal [facility] Comment on above: Order Comment: Speci men Type: BLOOD SPECIMENOrdering Facility: [facility] Address: [address] [place] [address] Performed By: #### 5 7021-8 ####[facility] LABCLIA [id number] [place] [address] Platelet mean volume (Bld) [Entitic vol] 10.0 fL Normal 9.0-12.7 [facility] Comment on above: Order Comment: Speci men Type: BLOOD SPECIMENOrdering Facility: [facility] Address: [address] [place] [address] Performed By: #### 5 7021-8 ####[facility] LABCLIA [id number] [place] [address] Platelets (Bld) [#/Vol] 255 10*3/uL Normal 150-400 [facility] Comment on above: Order Comment: Speci men Type: BLOOD SPECIMENOrdering Facility: [facility] Address: [address] [place] [address] Performed By: #### 5 7021-8 ####[facility] LABIA [id number] [place] [address] RBC (Bld) [#/Vol] 3.43 10*6/uL Low 4.20-6.00 [facility] Comment on above: Order Comment: Speci men Type: BLOOD SPECIMENOrdering Facility: [facility] Address: [address] [place] [address] Performed By: #### 5 7021-8 ####[facility] LABIA [id number] [place] [address] WBC (Bld) [#/Vol] 3.89 10*3/uL Normal 3.70-11.00 [facility] Comment on above: Order Comment: Speci men Type: BLOOD SPECIMENOrdering Facility: [facility] Address: [address] [place] [address] Performed By: #### 5 7021-8 ####[facility] LABIA [id number] [place] [address] CNOVSPon 09-13-2023 CNOVSP Normal [facility] Cancer Ag19-9 SerPl-aCncon 0 4-24-2024 Cancer Ag 19-9 Qn 967.0 [arb'U]/mL High <36.0 C [facility] Comment on above: Order Comment: Speci men Type: BLOOD SPECIMENOrdering Facility: [facility] Address: [address] [place] [address] Result Comment: [facility] er antigen 19-9 test is used as an aid in monitoring response to treatment or recurrence in patients with established pancreatic, hepatobiliary, or gastrointestinal malignancies. Clinical correlation is required.The CA 19-9 Antigen test was performed using the [employer] DXI paramagnetic particle chemiluminescent immunoassay method. Results obtained with different assay methods or kits cannot be used interchangeably. Performed By: #### 2 4108-3 ####[facility] LABCLIA [id number] [address] [facility] Comprehensive metabolic 2000 panelOrdered By: Je Elias on 09-13-2023 Albumin [Mass/Vol] 3.8 g/dL Low 3.9 - 4.9 g/dL [facility] ALP [Catalytic activity/Vol] 136 U/L High 38 - 113 U/L [facility] ALT [Catalytic activity/Vol] 18 U/L 10 - 54 U/L [facility] Anion gap [Moles/Vol] 10 mmol/L 9 - 18 mmol/L [facility] AST [Catalytic activity/Vol] 16 U/L 14 - 40 U/L [facility] Bilirubin [Mass/Vol] 0.7 mg/dL 0.2 - 1 .3 mg/dL [facility] Calcium [Mass/Vol] 10.3 mg/dL High 8.5 - 10. 2 mg/dL [facility] Chloride [Moles/Vol] 109 mmol/L High 97 - 10 5 mmol/L [facility] CO2 [Moles/Vol] 24 mmol/L 22 - 30 mmol/L [facility] Creatinine [Mass/Vol] 0.81 mg/dL 0.73 - 1.22 mg/dL [facility] GFR/1.73 sq M.predicted among non-blacks MDRD (S/P/Bld) [Vol rate/Area] 94 mL/min/{1.73_m2} - PINF [facility] Comment on above: Estimated Glomerular [...] 142 mg/dL High 74 - 99 mg/dL [facility] Comment on above: The [place] Di[employer] (ADA) provides guidance for [...] Standards of Medical Care in Diabetes 2016, [place] [employer]. Diabetes Care. 2016.39(Suppl 1). Interpretation and review of laboratory results Abnormal [facility] Potassium [Moles/Vol] 4.4 mmol/L 3.7 - 5.1 mmol/L [facility] Protein [Mass/Vol] 6.6 g/dL 6.3 - 8.0 g/dL [facility] Sodium [Moles/Vol] 143 mmol/L 136 - 144 mmol/L [facility] Urea nitrogen [Mass/Vol] 16 mg/dL 9 - 24 mg/dL [facility] Comprehensive metabolic 2000 panelon 09-13-2023 Albumin [Mass/Vol] 3.8 g/dL Low 3.9-4.9 [facility] Comment on above: Order Comment: Speci men Type: BLOOD SPECIMENOrdering Facility: [facility] Address: [address] [place] [address] Performed By: #### 2 4323-8 ####[facility] LABCLIA [id number] [place] [address] ALP [Catalytic activity/Vol] 136 U/L High 38-113 [facility] Comment on above: Order Comment: Speci men Type: BLOOD SPECIMENOrdering Facility: [facility] Address: [address] [place] [address] Performed By: #### 2 4323-8 ####[facility] LABCLIA [id number] [place] [address] ALT [Catalytic activity/Vol] 18 U/L Normal 10-54 [facility] Comment on above: Order Comment: Speci men Type: BLOOD SPECIMENOrdering Facility: [facility] Address: [address] [place] [address] Performed By: #### 2 4323-8 ####[facility] LABCLIA [id number] [place] [address] Anion gap [Moles/Vol] 10 mmol/L Normal 9-18 [facility] Comment on above: Order Comment: Speci men Type: BLOOD SPECIMENOrdering Facility: [facility] Address: [address] [place] [address] Performed By: #### 2 4323-8 ####[facility] LABCLIA [id number] [place] [address] AST [Catalytic activity/Vol] 16 U/L Normal 14-40 [facility] Comment on above: Order Comment: Speci men Type: BLOOD SPECIMENOrdering Facility: [facility] Address: [address] [place], [place] [address] Performed By: #### 2 4323-8 ####[facility] LABCLIA [id number] [place] [address] Bilirubin [Mass/Vol] 0.7 mg/dL Normal 0.2-1.3 [facility] Comment on above: Order Comment: Speci men Type: BLOOD SPECIMENOrdering Facility: [facility] Address: [address] [place] [address] Performed By: #### 2 4323-8 ####[facility] LABCLIA [id number] [place] [address] Calcium [Mass/Vol] 10.3 mg/dL High 8.5-10.2 [facility] Comment on above: Order Comment: Speci men Type: BLOOD SPECIMENOrdering Facility: [facility] Address: [address] [place] [address] Performed By: #### 2 4323-8 ####[facility] LABCLIA [id number] [place] [address] Chloride [Moles/Vol] 109 mmol/L High 97-105 [facility] Comment on above: Order Comment: Speci men Type: BLOOD SPECIMENOrdering Facility: [facility] Address: [address] [place] [address] Performed By: #### 2 4323-8 ####[facility] LABCLIA [id number] [place] [address] CO2 [Moles/Vol] 24 mmol/L Normal 22-30 [facility] Comment on above: Order Comment: Speci men Type: BLOOD SPECIMENOrdering Facility: [facility] Address: [address] [place] [address] Performed By: #### 2 4323-8 ####[facility] LABCLIA [id number] [place] [address] Creatinine [Mass/Vol] 0.81 mg/dL Normal 0.73-1.22 [facility] Comment on above: Order Comment: Speci men Type: BLOOD SPECIMENOrdering Facility: [facility] Address: [address] [place] [address] Performed By: #### 2 4323-8 ####[facility] LABCLIA [id number] [place] [address] Creatinine and Glomerular filtration rate.predicted panel (S/P/Bld) 94 mL/min/1.73m??? Normal >=60 [facility] Comment on above: Order Comment: Speci men Type: BLOOD SPECIMENOrdering Facility: [facility] Address: [address] [place], [place] [address] Result Comment: Kathy mated Glomerular Filtration Rate [...] actual GFR. Performed By: #### 2 4323-8 ####[facility] LABCLIA [id number] [place] [address] Glucose [Mass/Vol] 142 mg/dL High 74-99 [facility] Comment on above: Order Comment: Specmack men Type: BLOOD SPECIMENOrdering Facility: [facility] Address: [address] [id number] Result Comment: The [place] Diabetes Association (ADA) provides guidance for cutoff [...] Standards of Medical Care in Diabetes 2016, [place] [employer]. Diabetes Care. 2016.39(Suppl 1). Performed By: #### 2 4323-8 ####[facility] LABCLIA [id number] [place] [address] Potassium [Moles/Vol] 4.4 mmol/L Normal 3.7-5.1 [facility] Comment on above: Order Comment: Noemí hoff Type: BLOOD SPECIMENOrdering Facility: [facility] Address: [address] [place] [address] Performed By: #### 2 4323-8 ####[facility] LABCLIA [id number] [place] [address] Protein [Mass/Vol] 6.6 g/dL Normal 6.3-8.0 [facility] Comment on above: Order Comment: Speci men Type: BLOOD SPECIMENOrdering Facility: [facility] Address: [address] [place] [address] Performed By: #### 2 4323-8 ####[facility] LABCLIA [id number] [place] [address] Sodium [Moles/Vol] 143 mmol/L Normal 136-144 [facility] Comment on above: Order Comment: Speci men Type: BLOOD SPECIMENOrdering Facility: [facility] Address: [address] [place] [address] Performed By: #### 2 4323-8 ####[facility] LABCLIA [id number] [place] [address] Urea nitrogen [Mass/Vol] 16 mg/dL Normal 9-24 [facility] Comment on above: Order Comment: Speci men Type: BLOOD SPECIMENOrdering Facility: [facility] Address: [address] [place] [address] Performed By: #### 2 4323-8 ####[facility] LABCLIA [id number] [place] [address] FERRITIN BLDon 09-13-2023 Ferritin [Mass/Vol] 56.8 ng/mL 30.3 - 565.7 ng/mL [facility] Ferritin SerPl-mCncon 2023 Ferritin [Mass/Vol] 56.8 ng/mL Normal 30.3-565.7 [facility] Comment on above: Order Comment: Speci men Type: BLOOD SPECIMENOrdering Facility: [facility] Address: [address] [place] [address] Performed By: #### 5 0190-8, 2276-4, 2132-9 ####[facility] LABCLIA [id number] [facility] [place] [address] [place] Iron and Iron binding capaci ty panelon 09-13-2023 Interpretation and review of laboratory results Normal [facility] Iron [Mass/Vol] 55 ug/dL 41 - 186 ug/dL [facility] Iron binding capacity [Mass/Vol] 335 ug/dL 232 - 386 ug/dL [facility] Iron/TIBC [Molar ratio] 16.4 % 15.0 - 57.0 % [facility] Iron [Mass/Vol] 55 ug/dL Normal 41-186 [facility] Comment on above: Order Comment: Speci men Type: BLOOD SPECIMENOrdering Facility: [facility] Address: [address] [place] [address] Performed By: #### 5 0190-8, 2275-, 2132-01 ####[facility] LABCLIA [id number] [address] STATES OF [facility] Iron binding capacity [Mass/Vol] 335 ug/dL Normal 232-386 [facility] Comment on above: Order Comment: Speci men Type: BLOOD SPECIMENOrdering Facility: [facility] Address: [address] [place] [address] Performed By: #### 5 0190-8, 2275-08, 2132-01 ####[facility] LABIA [id number] [address] [place] Iron/TIBC [Molar ratio] 16.4 % Normal 15.0-57.0 [facility] Comment on above: Order Comment: Speci men Type: BLOOD SPECIMENOrdering Facility: [facility] Address: [address] [place] [address] Performed By: #### 5 0190-8, 2275-4, 2132-01 ####[facility] LABCLIA [id number] [place] [address] [place] No Panel Informationon 09-12 Interpretation and review of laboratory results Normal [facility] VITAMIN B12 BLOODon 09-13-19 Cobalamin (Vitamin B12) [Mass/Vol] 720 pg/mL 232 - 1245 pg/mL [facility] Vit B12 SerPl-mCncon 09-12- 024 Cobalamin (Vitamin B12) [Mass/Vol] 720 pg/mL Normal 232-1245 [facility] Comment on above: Order Comment: Speci men Type: BLOOD SPECIMENOrdering Facility: [facility] Address: [address] [place] [address] Performed By: #### 5 0190-8, 2276-4, 2132-9 ####[facility] LABCLIA [id number] [facility] [place] [address] [place] CBC W Auto Differential pane l (Bld)on 08-23-2023 Basophils (Bld) [#/Vol] <0.11 k/uL [facility] Basophils/100 WBC (Bld) 0.4 % [facility] Differential cell count method Nom (Bld) Auto [facility] Eosinophils (Bld) [#/Vol] 0.04 10*3/uL <0.46 k/uL [facility] Eosinophils/100 WBC (Bld) 0.8 % [facility] Erythrocyte distribution width (RBC) [Ratio] 15.3 % High 11.5 - 15.0 % [facility] Hematocrit (Bld) [Volume fraction] 34.6 % Low 39.0 - 51.0 % [facility] Hemoglobin (Bld) [Mass/Vol] 11.3 g/dL Low 13.0 - 17.0 g/dL [facility] Immature granulocytes (Bld) [#/Vol] <0.10 k/uL [facility] Immature granulocytes/100 WBC (Bld) 0.4 % [facility] Lymphocytes (Bld) [#/Vol] 1.95 10*3/uL 1.00 - 4.00 k/uL [facility] Lymphocytes/100 WBC (Bld) 40.7 % [facility] MCH (RBC) [Entitic mass] 34.1 pg High 26.0 - 34.0 pg [facility] MCHC (RBC) [Mass/Vol] 32.7 g/dL 30.5 - 36.0 g/dL [facility] MCV (RBC) [Entitic vol] 104.5 fL High 80.0 - 100.0 fL [facility] Monocytes (Bld) [#/Vol] 0.72 10*3/uL <0.87 k/uL [facility] Monocytes/100 WBC (Bld) 15.0 % [facility] Neutrophils (Bld) [#/Vol] 2.04 10*3/uL 1.45 - 7.50 k/uL [facility] Neutrophils/100 WBC (Bld) 42.7 % [facility] Nucleated RBC (Bld) [#/Vol] <0.01 k/uL [facility] Nucleated RBC/100 WBC (Bld) [Ratio] 0.0 /100 WBC [facility] Platelet mean volume (Bld) [Entitic vol] 10.0 fL 9.0 - 12.7 fL [facility] Platelets (Bld) [#/Vol] 241 10*3/uL 150 - 400 k/uL [facility] RBC (Bld) [#/Vol] 3.31 10*6/uL Low 4.20 - 6.0 0 m/uL [facility] WBC (Bld) [#/Vol] 4.79 10*3/uL 3.70 - 11.00 k/uL [facility] Basophils (Bld) [#/Vol] 10*3/uL Normal <0.11 [facility] Comment on above: Order Comment: Speci men Type: BLOOD SPECIMENOrdering Facility: [facility] Address: [address] [place] [address] Performed By: #### 5 7021-8 ####[facility] LABCLIA [id number] [place] [address] Basophils/100 WBC (Bld) 0.4 % Normal [facility] Comment on above: Order Comment: Speci men Type: BLOOD SPECIMENOrdering Facility: [facility] Address: [address] [place] [address] Performed By: #### 5 7021-8 ####[facility] LABIA [id number] [place] [address] Differential cell count method Nom (Bld) Auto Normal [facility] Comment on above: Order Comment: Speci men Type: BLOOD SPECIMENOrdering Facility: [facility] Address: [address] [place] [address] Performed By: #### 5 7021-8 ####[facility] LABCLIA [id number] [place] [address] Eosinophils (Bld) [#/Vol] 0.04 10*3/uL Normal <0.46 [facility] Comment on above: Order Comment: Speci men Type: BLOOD SPECIMENOrdering Facility: [facility] Address: [address] [place] [address] Performed By: #### 5 7021-8 ####[facility] LABCLIA [id number] [place] [address] Eosinophils/100 WBC (Bld) 0.8 % Normal [facility] Comment on above: Order Comment: Speci men Type: BLOOD SPECIMENOrdering Facility: [facility] Address: [address] [place] [address] Performed By: #### 5 7021-8 ####[facility] LABIA [id number] [place] [address] Erythrocyte distribution width (RBC) [Ratio] 15.3 % High 11.5-15.0 [facility] Comment on above: Order Comment: Speci men Type: BLOOD SPECIMENOrdering Facility: [facility] Address: [address] [place] [address] Performed By: #### 5 7021-8 ####[facility] LABCLIA [id number] [place] [address] Hematocrit (Bld) [Volume fraction] 34.6 % Low 39.0-51.0 [facility] Comment on above: Order Comment: Speci men Type: BLOOD SPECIMENOrdering Facility: [facility] Address: [address] [place] [address] Performed By: #### 5 7021-8 ####[facility] LABIA [id number] [place] [address] Hemoglobin (Bld) [Mass/Vol] 11.3 g/dL Low 13.0-17.0 [facility] Comment on above: Order Comment: Speci men Type: BLOOD SPECIMENOrdering Facility: [facility] Address: [address] [place] [address] Performed By: #### 5 7021-8 ####[facility] LABCLIA [id number] [place] [address] Immature granulocytes (Bld) [#/Vol] 10*3/uL Normal <0.10 [facility] Comment on above: Order Comment: Speci men Type: BLOOD SPECIMENOrdering Facility: [facility] Address: [address] [place] [address] Performed By: #### 5 7021-8 ####[facility] LABCLIA [id number] [place] [address] Immature granulocytes/100 WBC (Bld) 0.4 % Normal [facility] Comment on above: Order Comment: Speci men Type: BLOOD SPECIMENOrdering Facility: [facility] Address: [address] [place] [address] Performed By: #### 5 7021-8 ####[facility] LABCLIA [id number] [place] [address] Lymphocytes (Bld) [#/Vol] 1.95 10*3/uL Normal 1.00-4.00 [facility] Comment on above: Order Comment: Speci men Type: BLOOD SPECIMENOrdering Facility: [facility] Address: [address] [place] [address] Performed By: #### 5 7021-8 ####[facility] LABCLIA [id number] [place] [address] Lymphocytes/100 WBC (Bld) 40.7 % Normal [facility] Comment on above: Order Comment: Speci men Type: BLOOD SPECIMENOrdering Facility: [facility] Address: [address] [place] [address] Performed By: #### 5 7021-8 ####[facility] LABCLIA [id number] [place] [address] MCH (RBC) [Entitic mass] 34.1 pg High 26.0-34.0 [facility] Comment on above: Order Comment: Speci men Type: BLOOD SPECIMENOrdering Facility: [facility] Address: [address] [place] [address] Performed By: #### 5 7021-8 ####[facility] LABCLIA [id number] [place] [address] MCHC (RBC) [Mass/Vol] 32.7 g/dL Normal 30.5-36.0 [facility] Comment on above: Order Comment: Speci men Type: BLOOD SPECIMENOrdering Facility: [facility] Address: [address] [place] [address] Performed By: #### 5 7021-8 ####[facility] LABCLIA [id number] [place] [address] MCV (RBC) [Entitic vol] 104.5 fL High 80.0-100.0 [facility] Comment on above: Order Comment: Speci men Type: BLOOD SPECIMENOrdering Facility: [facility] Address: [address] [place] [address] Performed By: #### 5 7021-8 ####[facility] LABCLIA [id number] [place] [address] Monocytes (Bld) [#/Vol] 0.72 10*3/uL Normal <0.87 [facility] Comment on above: Order Comment: Speci men Type: BLOOD SPECIMENOrdering Facility: [facility] Address: [address] [place] [address] Performed By: #### 5 7021-8 ####[facility] LABCLIA [id number] [place] [address] Monocytes/100 WBC (Bld) 15.0 % Normal [facility] Comment on above: Order Comment: Speci men Type: BLOOD SPECIMENOrdering Facility: [facility] Address: [address] [place] [address] Performed By: #### 5 7021-8 ####[facility] LABCLIA [id number] [place] [address] Neutrophils (Bld) [#/Vol] 2.04 10*3/uL Normal 1.45-7.50 [facility] Comment on above: Order Comment: Speci men Type: BLOOD SPECIMENOrdering Facility: [facility] Address: [address] [place] [address] Performed By: #### 5 7021-8 ####[facility] LABCLIA [id number] [place] [address] Neutrophils/100 WBC (Bld) 42.7 % Normal [facility] Comment on above: Order Comment: Speci men Type: BLOOD SPECIMENOrdering Facility: [facility] Address: [address] [place] [address] Performed By: #### 5 7021-8 ####[facility] LABCLIA [id number] [place] [address] Nucleated RBC (Bld) [#/Vol] 10*3/uL Normal <0.01 [facility] Comment on above: Order Comment: Speci men Type: BLOOD SPECIMENOrdering Facility: [facility] Address: [address] [place] [address] Performed By: #### 5 7021-8 ####[facility] LABCLIA [id number] [place] [address] Nucleated RBC/100 WBC (Bld) [Ratio] 0.0 /100 WBC Normal [facility] Comment on above: Order Comment: Speci men Type: BLOOD SPECIMENOrdering Facility: [facility] Address: [address] [place] [address] Performed By: #### 5 7021-8 ####[facility] LABCLIA [id number] [place] [address] Platelet mean volume (Bld) [Entitic vol] 10.0 fL Normal 9.0-12.7 [facility] Comment on above: Order Comment: Speci men Type: BLOOD SPECIMENOrdering Facility: [facility] Address: [address] [place] [address] Performed By: #### 5 7021-8 ####[facility] LABCLIA [id number] [place] [address] Platelets (Bld) [#/Vol] 241 10*3/uL Normal 150-400 [facility] Comment on above: Order Comment: Speci men Type: BLOOD SPECIMENOrdering Facility: [facility] Address: [address] [place] [address] Performed By: #### 5 7021-8 ####[facility] LABIA [id number] [place] [address] RBC (Bld) [#/Vol] 3.31 10*6/uL Low 4.20-6.00 [facility] Comment on above: Order Comment: Speci men Type: BLOOD SPECIMENOrdering Facility: [facility] Address: [address] [place] [address] Performed By: #### 5 7021-8 ####[facility] LABIA [id number] [place] [address] WBC (Bld) [#/Vol] 4.79 10*3/uL Normal 3.70-11.00 [facility] Comment on above: Order Comment: Speci men Type: BLOOD SPECIMENOrdering Facility: [facility] Address: [address] [place] [address] Performed By: #### 5 7021-8 ####[facility] LABIA [id number] [place] [address] CNOVSPon 08-23-2023 CNOVSP Normal [facility] Cancer Ag19-9 SerPl-aCncon 0 08-23-2023 Cancer Ag 19-9 Qn 1509.0 [arb'U]/mL High <36.0 [facility] Comment on above: Order Comment: Speci men Type: BLOOD SPECIMENOrdering Facility: [facility] Address: [address] [place] [address] Result Comment: [facility] er antigen 19-9 test is used [...] used interchangeably. Performed By: #### 2 4108-3 ####[facility] LABCLIA [id number] [place] [address] [place] Comprehensive metabolic 2000 panelon 08-23-2023 Albumin [Mass/Vol] 4.0 g/dL 3.9 - 4.9 g/dL [facility] ALP [Catalytic activity/Vol] 139 U/L High 38 - 113 U/L [facility] ALT [Catalytic activity/Vol] 16 U/L 10 - 54 U/L [facility] Anion gap [Moles/Vol] 9 mmol/L 9 - 18 mmol/L [facility] AST [Catalytic activity/Vol] 16 U/L 14 - 40 U/L [facility] Bilirubin [Mass/Vol] 0.8 mg/dL 0.2 - 1 .3 mg/dL [facility] Calcium [Mass/Vol] 10.7 mg/dL High 8.5 - 10. 2 mg/dL [facility] Chloride [Moles/Vol] 105 mmol/L 97 - 10 5 mmol/L [facility] CO2 [Moles/Vol] 25 mmol/L 22 - 30 mmol/L [facility] Creatinine [Mass/Vol] 0.83 mg/dL 0.73 - 1.22 mg/dL [facility] Estimated Glomerular Filtration Rate 93 mL/min/1.73m >=60 mL/min/1.73 m [facility] Glucose [Mass/Vol] 142 mg/dL High 74 - 99 mg/dL [facility] Potassium [Moles/Vol] 4.1 mmol/L 3.7 - 5.1 mmol/L [facility] Protein [Mass/Vol] 6.9 g/dL 6.3 - 8.0 g/dL [facility] Sodium [Moles/Vol] 139 mmol/L 136 - 144 mmol/L [facility] Urea nitrogen [Mass/Vol] 19 mg/dL 9 - 24 mg/dL [facility] Albumin [Mass/Vol] 4.0 g/dL Normal 3.9-4.9 [facility] Comment on above: Order Comment: Speci men Type: BLOOD SPECIMENOrdering Facility: [facility] Address: [address] [place] [address] Performed By: #### 2 4323-8 ####[facility] LABCLIA [id number] [place] [address] ALP [Catalytic activity/Vol] 139 U/L High 38-113 [facility] Comment on above: Order Comment: Speci men Type: BLOOD SPECIMENOrdering Facility: [facility] Address: [address] [place] [address] Performed By: #### 2 4323-8 ####[facility] LABCLIA [id number] [place] [address] ALT [Catalytic activity/Vol] 16 U/L Normal 10-54 [facility] Comment on above: Order Comment: Speci men Type: BLOOD SPECIMENOrdering Facility: [facility] Address: [address] [place] [address] Performed By: #### 2 4323-8 ####[facility] LABCLIA [id number] [place] [address] Anion gap [Moles/Vol] 9 mmol/L Normal 9-18 [facility] Comment on above: Order Comment: Speci men Type: BLOOD SPECIMENOrdering Facility: [facility] Address: [address] [place] [address] Performed By: #### 2 4323-8 ####[facility] LABCLIA [id number] [place] [address] AST [Catalytic activity/Vol] 16 U/L Normal 14-40 [facility] Comment on above: Order Comment: Speci men Type: BLOOD SPECIMENOrdering Facility: [facility] Address: [address] [place] [address] Performed By: #### 2 4323-8 ####[facility] LABCLIA [id number] [place] [address] Bilirubin [Mass/Vol] 0.8 mg/dL Normal 0.2-1.3 [facility] Comment on above: Order Comment: Speci men Type: BLOOD SPECIMENOrdering Facility: [facility] Address: [address] [place] [address] Performed By: #### 2 4323-8 ####[facility] LABCLIA [id number] [place] [address] Calcium [Mass/Vol] 10.7 mg/dL High 8.5-10.2 [facility] Comment on above: Order Comment: Speci men Type: BLOOD SPECIMENOrdering Facility: [facility] Address: [address] [place] [address] Performed By: #### 2 4323-8 ####[facility] LABCLIA [id number] [place] [address] Chloride [Moles/Vol] 105 mmol/L Normal 97-105 [facility] Comment on above: Order Comment: Speci men Type: BLOOD SPECIMENOrdering Facility: [facility] Address: [address] [place] [address] Performed By: #### 2 4323-8 ####[facility] LABCLIA [id number] [place] [address] CO2 [Moles/Vol] 25 mmol/L Normal 22-30 [facility] Comment on above: Order Comment: Speci men Type: BLOOD SPECIMENOrdering Facility: [facility] Address: [facility] [place] [address] Performed By: #### 2 4323-8 ####[facility] LABCLIA [id number] [place] [address] Creatinine [Mass/Vol] 0.83 mg/dL Normal 0.73-1.22 [facility] Comment on above: Order Comment: Noemí hoff Type: BLOOD SPECIMENOrdering Facility: [facility] Address: [address] [id number] Performed By: #### 2 4323-8 ####[facility] LABCLIA [id number] [place] [address] Creatinine and Glomerular filtration rate.predicted panel (S/P/Bld) 93 mL/min/1.73m??? Normal >=60 [facility] Comment on above: Order Comment: Specmack men Type: BLOOD SPECIMENOrdering Facility: [facility] Address: [address] [place] [address] Result Comment: Kathy mated Glomerular Filtration Rate [...] actual GFR. Performed By: #### 2 4323-8 ####[facility] LABCLIA [id number] [place] [address] Glucose [Mass/Vol] 142 mg/dL High 74-99 [facility] Comment on above: Order Comment: Noemí luis eduardo Type: BLOOD SPECIMENOrdering Facility: [facility] Address: [address] [place], [place] [address] Result Comment: The [place] [employer] (ADA) provides guidance for cutoff [...] Standards of Medical Care in Diabetes 2016, [place] [employer]. Diabetes Care. 2016.39(Suppl 1). Performed By: #### 2 4323-8 ####[facility] LABCLIA [id number] [place] [address] Potassium [Moles/Vol] 4.1 mmol/L Normal 3.7-5.1 [facility] Comment on above: Order Comment: Speci men Type: BLOOD SPECIMENOrdering Facility: [facility] Address: [address] [place] [address] Performed By: #### 2 4323-8 ####[facility] LABCLIA [id number] [place] [address] Protein [Mass/Vol] 6.9 g/dL Normal 6.3-8.0 [facility] Comment on above: Order Comment: Speci men Type: BLOOD SPECIMENOrdering Facility: [facility] Address: [address] [place] [address] Performed By: #### 2 4323-8 ####[facility] LABCLIA [id number] [place] [address] Sodium [Moles/Vol] 139 mmol/L Normal 136-144 [facility] Comment on above: Order Comment: Speci men Type: BLOOD SPECIMENOrdering Facility: [facility] Address: [address] [place] [address] Performed By: #### 2 4323-8 ####[facility] LABCLIA [id number] [place] [address] Urea nitrogen [Mass/Vol] 19 mg/dL Normal 9-24 [facility] Comment on above: Order Comment: Speci men Type: BLOOD SPECIMENOrdering Facility: [facility] Address: [address] [place] [address] Performed By: #### 2 4323-8 ####[facility] LABCLIA [id number] [place] [address] CNPNon 08-18-2023 CNPN Normal [facility] CT ABD/PEL W IVCONon 03-29-[address] ABD/PEL W IVCON Normal [facility] CT Abdomen and Pelvis W [...] any questions regarding this interpretation, please call [phone]. If you are unable to reach us at the number above, please feel free to contact [facility]iology at [phone]. DIVISION OF RADIOLOGY * * *Final Report* * * DATE OF EXAM: Aug 18 2023 10:27AM [facility] 0530 - CT ABD/PEL W IVCON / [...] chest CT performed will be reported separately. Delivery Sales Worker (topogram) images: No additional findings. DIVISION OF RADIOLOGY Provider, [facility] - 08/18/2023 * * *Final Report* * * DATE OF EXAM: Aug 18 2023 10:27AM [facility] 0530 - CT ABD/PEL W IVCON / [...] chest CT performed will be reported separately. Delivery Sales Worker (topogram) images: No additional findings. IMPRESSION IMPRESSION: [...] any questions regarding this interpretation, please call [phone]. If you are unable to reach us at the number above, please feel free to contact [facility] eRadiology at [phone]. [facility] CT CHEST W IVCONon CT CHEST W IVCON Normal [facility] CT Chest W contrast [place] IMPRESSION: [...] any questions regarding this interpretation, please call [phone]. If you are unable to reach us at the number above, please feel free to contact [facility] eRadiology at [phone]. DIVISION OF RADIOLOGY * * *Final Report* * * DATE OF EXAM: Aug 18 2023 10:27AM [facility] 0539 - CT CHEST W IVCON / [...] was performed and will be reported separately. Delivery Sales Worker (topogram) images: No additional findings. DIVISION OF RADIOLOGY Provider, [facility] - 08/18/2023 * * *Final Report* * * DATE OF EXAM: Aug 18 2023 10:27AM [facility] 0539 - CT CHEST W IVCON / [...] was performed and will be reported separately. Delivery Sales Worker (topogram) images: No additional findings. IMPRESSION IMPRESSION: [...] any questions regarding this interpretation, please call [phone]. If you are unable to reach us at the number above, please feel free to contact [facility] eRadiology at [phone]. [facility] CT Chest W contrast IVOrdere d By: Ccf Provider on 08-18-2023 [facility] No Panel Informationon 08-17 Radiology Study observation (narrative) [facility] CNPNon 08-09-2023 CNPN Normal [facility] CBC W Auto Differential pane l (Bld)on 08-02-2023 Basophils (Bld) [#/Vol] <0.11 k/uL [facility] Basophils/100 WBC (Bld) 0.4 % [facility] Differential cell count method Nom (Bld) Auto [facility] Eosinophils (Bld) [#/Vol] 0.07 10*3/uL <0.46 k/uL [facility] Eosinophils/100 WBC (Bld) 1.3 % [facility] Erythrocyte distribution width (RBC) [Ratio] 17.4 % High 11.5 - 15.0 % [facility] Hematocrit (Bld) [Volume fraction] 31.6 % Low 39.0 - 51.0 % [facility] Hemoglobin (Bld) [Mass/Vol] 10.3 g/dL Low 13.0 - 17.0 g/dL [facility] Immature granulocytes (Bld) [#/Vol] <0.10 k/uL [facility] Immature granulocytes/100 WBC (Bld) 0.4 % [facility] Lymphocytes (Bld) [#/Vol] 1.29 10*3/uL 1.00 - 4.00 k/uL [facility] Lymphocytes/100 WBC (Bld) 24.0 % [facility] MCH (RBC) [Entitic mass] 34.0 pg 26.0 - 34.0 pg [facility] MCHC (RBC) [Mass/Vol] 32.6 g/dL 30.5 - 36.0 g/dL [facility] MCV (RBC) [Entitic vol] 104.3 fL High 80.0 - 100.0 fL [facility] Monocytes (Bld) [#/Vol] 0.48 10*3/uL <0.87 k/uL [facility] Monocytes/100 WBC (Bld) 8.9 % [facility] Neutrophils (Bld) [#/Vol] 3.50 10*3/uL 1.45 - 7.50 k/uL [facility] Neutrophils/100 WBC (Bld) 65.0 % [facility] Nucleated RBC (Bld) [#/Vol] <0.01 k/uL [facility] Nucleated RBC/100 WBC (Bld) [Ratio] 0.0 /100 WBC [facility] Platelet mean volume (Bld) [Entitic vol] 9.2 fL 9.0 - 12.7 fL [facility] Platelets (Bld) [#/Vol] 224 10*3/uL 150 - 400 k/uL [facility] RBC (Bld) [#/Vol] 3.03 10*6/uL Low 4.20 - 6.0 0 m/uL [facility] WBC (Bld) [#/Vol] 5.38 10*3/uL 3.70 - 11.00 k/uL [facility] Basophils (Bld) [#/Vol] 10*3/uL Normal <0.11 [facility] Comment on above: Order Comment: Speci men Type: BLOOD SPECIMENOrdering Facility: [facility] Address: [address] [place] [address] Performed By: #### 5 7021-8 ####[facility] LABCLIA [id number] [place] [address] Basophils/100 WBC (Bld) 0.4 % Normal [facility] Comment on above: Order Comment: Speci men Type: BLOOD SPECIMENOrdering Facility: [facility] Address: [address] [place] [address] Performed By: #### 5 7021-8 ####[facility] LABCLIA [id number] [place] [address] Differential cell count method Nom (Bld) Auto Normal [facility] Comment on above: Order Comment: Speci men Type: BLOOD SPECIMENOrdering Facility: [facility] Address: [address] [place] [address] Performed By: #### 5 7021-8 ####[facility] LABCLIA [id number] [place] [address] Eosinophils (Bld) [#/Vol] 0.07 10*3/uL Normal <0.46 [facility] Comment on above: Order Comment: Speci men Type: BLOOD SPECIMENOrdering Facility: [facility] Address: [address] [place] [address] Performed By: #### 5 7021-8 ####[facility] LABCLIA [id number] [place] [address] Eosinophils/100 WBC (Bld) 1.3 % Normal [facility] Comment on above: Order Comment: Speci men Type: BLOOD SPECIMENOrdering Facility: [facility] Address: [address] [place] [address] Performed By: #### 5 7021-8 ####[facility] LABCLIA [id number] [place] [address] Erythrocyte distribution width (RBC) [Ratio] 17.4 % High 11.5-15.0 [facility] Comment on above: Order Comment: Speci men Type: BLOOD SPECIMENOrdering Facility: [facility] Address: [address] [place] [address] Performed By: #### 5 7021-8 ####[facility] LABCLIA [id number] [place] [address] Hematocrit (Bld) [Volume fraction] 31.6 % Low 39.0-51.0 [facility] Comment on above: Order Comment: Speci men Type: BLOOD SPECIMENOrdering Facility: [facility] Address: [address] [place] [address] Performed By: #### 5 7021-8 ####[facility] LABCLIA [id number] [place] [address] Hemoglobin (Bld) [Mass/Vol] 10.3 g/dL Low 13.0-17.0 [facility] Comment on above: Order Comment: Speci men Type: BLOOD SPECIMENOrdering Facility: [facility] Address: [address] [place] [address] Performed By: #### 5 7021-8 ####[facility] LABCLIA [id number] [place] [address] Immature granulocytes (Bld) [#/Vol] 10*3/uL Normal <0.10 [facility] Comment on above: Order Comment: Speci men Type: BLOOD SPECIMENOrdering Facility: [facility] Address: [address] [place] [address] Performed By: #### 5 7021-8 ####[facility] LABCLIA [id number] [place] [address] Immature granulocytes/100 WBC (Bld) 0.4 % Normal [facility] Comment on above: Order Comment: Speci men Type: BLOOD SPECIMENOrdering Facility: [facility] Address: [address] [place] [address] Performed By: #### 5 7021-8 ####[facility] LABCLIA [id number] [place] [address] Lymphocytes (Bld) [#/Vol] 1.29 10*3/uL Normal 1.00-4.00 [facility] Comment on above: Order Comment: Speci men Type: BLOOD SPECIMENOrdering Facility: [facility] Address: [address] [place] [address] Performed By: #### 5 7021-8 ####[facility] LABCLIA [id number] [place] [address] Lymphocytes/100 WBC (Bld) 24.0 % Normal [facility] Comment on above: Order Comment: Speci men Type: BLOOD SPECIMENOrdering Facility: [facility] Address: [address] [place] [address] Performed By: #### 5 7021-8 ####[facility] LABCLIA [id number] [place] [address] MCH (RBC) [Entitic mass] 34.0 pg Normal 26.0-34.0 [facility] Comment on above: Order Comment: Speci men Type: BLOOD SPECIMENOrdering Facility: [facility] Address: [address] [place] [address] Performed By: #### 5 7021-8 ####[facility] LABCLIA [id number] [place] [address] MCHC (RBC) [Mass/Vol] 32.6 g/dL Normal 30.5-36.0 [facility] Comment on above: Order Comment: Speci men Type: BLOOD SPECIMENOrdering Facility: [facility] Address: [address] [place] [address] Performed By: #### 5 7021-8 ####[facility] LABCLIA [id number] [place] [address] MCV (RBC) [Entitic vol] 104.3 fL High 80.0-100.0 [facility] Comment on above: Order Comment: Speci men Type: BLOOD SPECIMENOrdering Facility: [facility] Address: [address] [place] [address] Performed By: #### 5 7021-8 ####[facility] LABCLIA [id number] [place] [address] Monocytes (Bld) [#/Vol] 0.48 10*3/uL Normal <0.87 [facility] Comment on above: Order Comment: Speci men Type: BLOOD SPECIMENOrdering Facility: [facility] Address: [address] [place] [address] Performed By: #### 5 7021-8 ####[facility] LABCLIA [id number] [place] [address] Monocytes/100 WBC (Bld) 8.9 % Normal [facility] Comment on above: Order Comment: Speci men Type: BLOOD SPECIMENOrdering Facility: [facility] Address: [address] [place] [address] Performed By: #### 5 7021-8 ####[facility] LABCLIA [id number] [place] [address] Neutrophils (Bld) [#/Vol] 3.50 10*3/uL Normal 1.45-7.50 [facility] Comment on above: Order Comment: Speci men Type: BLOOD SPECIMENOrdering Facility: [facility] Address: [address] [place] [address] Performed By: #### 5 7021-8 ####[facility] LABCLIA [id number] [place] [address] Neutrophils/100 WBC (Bld) 65.0 % Normal [facility] Comment on above: Order Comment: Speci men Type: BLOOD SPECIMENOrdering Facility: [facility] Address: [address] [place] [address] Performed By: #### 5 7021-8 ####[facility] LABCLIA [id number] [place] [address] Nucleated RBC (Bld) [#/Vol] 10*3/uL Normal <0.01 [facility] Comment on above: Order Comment: Speci men Type: BLOOD SPECIMENOrdering Facility: [facility] Address: [address] [place] [address] Performed By: #### 5 7021-8 ####[facility] LABCLIA [id number] [place] [address] Nucleated RBC/100 WBC (Bld) [Ratio] 0.0 /100 WBC Normal [facility] Comment on above: Order Comment: Speci men Type: BLOOD SPECIMENOrdering Facility: [facility] Address: [address] [place] [address] Performed By: #### 5 7021-8 ####[facility] LABCLIA [id number] [place] [address] Platelet mean volume (Bld) [Entitic vol] 9.2 fL Normal 9.0-12.7 [facility] Comment on above: Order Comment: Speci men Type: BLOOD SPECIMENOrdering Facility: [facility] Address: [address] [place] [address] Performed By: #### 5 7021-8 ####[facility] LABCLIA [id number] [place] [address] Platelets (Bld) [#/Vol] 224 10*3/uL Normal 150-400 [facility] Comment on above: Order Comment: Speci men Type: BLOOD SPECIMENOrdering Facility: [facility] Address: [address] [place] [address] Performed By: #### 5 7021-8 ####[facility] LABCLIA [id number] [place] [address] RBC (Bld) [#/Vol] 3.03 10*6/uL Low 4.20-6.00 [facility] Comment on above: Order Comment: Speci men Type: BLOOD SPECIMENOrdering Facility: [facility] Address: [address] [place] [address] Performed By: #### 5 7021-8 ####[facility] LABCLIA [id number] [place] [address] WBC (Bld) [#/Vol] 5.38 10*3/uL Normal 3.70-11.00 [facility] Comment on above: Order Comment: Speci men Type: BLOOD SPECIMENOrdering Facility: [facility] Address: [address] [place] [address] Performed By: #### 5 7021-8 ####[facility] LABCLIA [id number] [place] [id number] CNOVSPon 08-02-2023 CNOVSP Normal [facility] Cancer Ag19-9 SerPl-aCncon 0 08-02-2023 Cancer Ag 19-9 Qn 1844.0 [arb'U]/mL High <36.0 [facility] Comment on above: Order Comment: Speci men Type: BLOOD SPECIMENOrdering Facility: [facility] Address: [address] [place] [address] Result Comment: [facility] er antigen 19-9 test is used as an aid in monitoring response to treatment or recurrence in patients with established pancreatic, hepatobiliary, or gastrointestinal malignancies. Clinical correlation is required.The CA 19-9 Antigen test was performed using the [employer] DXI paramagnetic particle chemiluminescent immunoassay method. Results obtained with different assay methods or kits cannot be used interchangeably. Performed By: #### 2 4108-3 ####[facility] LABCLIA [id number] [place] [address] [place] Comprehensive metabolic 2000 panelon 08-02-2023 Albumin [Mass/Vol] 3.9 g/dL 3.9 - 4.9 g/dL [facility] ALP [Catalytic activity/Vol] 137 U/L High 38 - 113 U/L [facility] ALT [Catalytic activity/Vol] 12 U/L 10 - 54 U/L [facility] Anion gap [Moles/Vol] 10 mmol/L 9 - 18 mmol/L [facility] AST [Catalytic activity/Vol] 13 U/L Low 14 - 40 U/L [facility] Bilirubin [Mass/Vol] 1.0 mg/dL 0.2 - 1 .3 mg/dL [facility] Calcium [Mass/Vol] 10.4 mg/dL High 8.5 - 10. 2 mg/dL [facility] Chloride [Moles/Vol] 105 mmol/L 97 - 10 5 mmol/L [facility] CO2 [Moles/Vol] 24 mmol/L 22 - 30 mmol/L [facility] Creatinine [Mass/Vol] 0.86 mg/dL 0.73 - 1.22 mg/dL [facility] Estimated Glomerular Filtration Rate 92 mL/min/1.73m >=60 mL/min/1.73 m [facility] Glucose [Mass/Vol] 149 mg/dL High 74 - 99 mg/dL [facility] Potassium [Moles/Vol] 4.0 mmol/L 3.7 - 5.1 mmol/L [facility] Protein [Mass/Vol] 6.5 g/dL 6.3 - 8.0 g/dL [facility] Sodium [Moles/Vol] 139 mmol/L 136 - 144 mmol/L [facility] Urea nitrogen [Mass/Vol] 20 mg/dL 9 - 24 mg/dL [facility] Albumin [Mass/Vol] 3.9 g/dL Normal 3.9-4.9 [facility] Comment on above: Order Comment: Speci men Type: BLOOD SPECIMENOrdering Facility: [facility] Address: [address] [place] [address] Performed By: #### 2 4323-8 ####[facility] LABCLIA [id number] [place] [address] ALP [Catalytic activity/Vol] 137 U/L High 38-113 [facility] Comment on above: Order Comment: Speci men Type: BLOOD SPECIMENOrdering Facility: [facility] Address: [address] [place] [address] Performed By: #### 2 4323-8 ####[facility] LABCLIA [id number] [place] [address] ALT [Catalytic activity/Vol] 12 U/L Normal 10-54 [facility] Comment on above: Order Comment: Speci men Type: BLOOD SPECIMENOrdering Facility: [facility] Address: [address] [place] [address] Performed By: #### 2 4323-8 ####[facility] LABCLIA [id number] [place] [address] Anion gap [Moles/Vol] 10 mmol/L Normal 9-18 [facility] Comment on above: Order Comment: Speci men Type: BLOOD SPECIMENOrdering Facility: [facility] Address: [address] [place] [address] Performed By: #### 2 4323-8 ####[facility] LABCLIA [id number] [place] [address] AST [Catalytic activity/Vol] 13 U/L Low 14-40 [facility] Comment on above: Order Comment: Speci men Type: BLOOD SPECIMENOrdering Facility: [facility] Address: [address] [place] [address] Performed By: #### 2 4323-8 ####[facility] LABCLIA [id number] [place] [address] Bilirubin [Mass/Vol] 1.0 mg/dL Normal 0.2-1.3 [facility] Comment on above: Order Comment: Speci men Type: BLOOD SPECIMENOrdering Facility: [facility] Address: [address] [place], [place] [address] Performed By: #### 2 4323-8 ####[facility] LABCLIA [id number] [place] [address] Calcium [Mass/Vol] 10.4 mg/dL High 8.5-10.2 [facility] Comment on above: Order Comment: Speci men Type: BLOOD SPECIMENOrdering Facility: [facility] Address: [address] [place] [address] Performed By: #### 2 4323-8 ####[facility] LABCLIA [id number] [place] [address] Chloride [Moles/Vol] 105 mmol/L Normal 97-105 [facility] Comment on above: Order Comment: Speci men Type: BLOOD SPECIMENOrdering Facility: [facility] Address: [address] [place] [address] Performed By: #### 2 4323-8 ####[facility] LABCLIA [id number] [place] [address] CO2 [Moles/Vol] 24 mmol/L Normal 22-30 [facility] Comment on above: Order Comment: Speci men Type: BLOOD SPECIMENOrdering Facility: [facility] Address: [address] [place] [address] Performed By: #### 2 4323-8 ####[facility] LABCLIA [id number] [place] [address] Creatinine [Mass/Vol] 0.86 mg/dL Normal 0.73-1.22 [facility] Comment on above: Order Comment: Speci men Type: BLOOD SPECIMENOrdering Facility: [facility] Address: [address] [place] [address] Performed By: #### 2 4323-8 ####[facility] LABCLIA [id number] [place] [address] Creatinine and Glomerular filtration rate.predicted panel (S/P/Bld) 92 mL/min/1.73m??? Normal >=60 [facility] Comment on above: Order Comment: Speci men Type: BLOOD SPECIMENOrdering Facility: [facility] Address: [address] [place] [address] Result Comment: Kathy mated Glomerular Filtration Rate [...] actual GFR. Performed By: #### 2 4323-8 ####[facility] LABCLIA [id number] [place] [address] Glucose [Mass/Vol] 149 mg/dL High 74-99 [facility] Comment on above: Order Comment: Speci men Type: BLOOD SPECIMENOrdering Facility: [facility] Address: [address] [place] [address] Result Comment: The [place] [employer] Association (ADA) provides guidance for cutoff [...] Standards of Medical Care in Diabetes 2016, [place] [employer]. Diabetes Care. 2016.39(Suppl 1). Performed By: #### 2 4323-8 ####[facility] LABCLIA [id number] [place] [address] Potassium [Moles/Vol] 4.0 mmol/L Normal 3.7-5.1 [facility] Comment on above: Order Comment: Speci men Type: BLOOD SPECIMENOrdering Facility: [facility] Address: [address] [place] [address] Performed By: #### 2 4323-8 ####[facility] LABCLIA [id number] [place] [address] Protein [Mass/Vol] 6.5 g/dL Normal 6.3-8.0 [facility] Comment on above: Order Comment: Speci men Type: BLOOD SPECIMENOrdering Facility: [facility] Address: [address] [place] [address] Performed By: #### 2 4323-8 ####[facility] LABCLIA [id number] [place] [address] Sodium [Moles/Vol] 139 mmol/L Normal 136-144 [facility] Comment on above: Order Comment: Speci men Type: BLOOD SPECIMENOrdering Facility: [facility] Address: [address] [place] [address] Performed By: #### 2 4323-8 ####[facility] LABCLIA [id number] [place] [address] Urea nitrogen [Mass/Vol] 20 mg/dL Normal 9-24 [facility] Comment on above: Order Comment: Speci men Type: BLOOD SPECIMENOrdering Facility: [facility] Address: [address] [place] [address] Performed By: #### 2 4323-8 ####[facility] LABCLIA [id number] [place] [address] CBC W Auto Differential pane l (Bld)on 07-19-2023 Basophils (Bld) [#/Vol] 0.04 10*3/uL <0.11 k/uL [facility] Basophils/100 WBC (Bld) 0.7 % [facility] Differential cell count method Nom (Bld) Auto [facility] Eosinophils (Bld) [#/Vol] 0.09 10*3/uL <0.46 k/uL [facility] Eosinophils/100 WBC (Bld) 1.5 % [facility] Erythrocyte distribution width (RBC) [Ratio] 17.9 % High 11.5 - 15.0 % [facility] Hematocrit (Bld) [Volume fraction] 32.0 % Low 39.0 - 51.0 % [facility] Hemoglobin (Bld) [Mass/Vol] 10.5 g/dL Low 13.0 - 17.0 g/dL [facility] Immature granulocytes (Bld) [#/Vol] 0.03 10*3/uL <0.10 k/uL [facility] Immature granulocytes/100 WBC (Bld) 0.5 % [facility] Lymphocytes (Bld) [#/Vol] 1.44 10*3/uL 1.00 - 4.00 k/uL [facility] Lymphocytes/100 WBC (Bld) 24.2 % [facility] MCH (RBC) [Entitic mass] 33.9 pg 26.0 - 34.0 pg [facility] MCHC (RBC) [Mass/Vol] 32.8 g/dL 30.5 - 36.0 g/dL [facility] MCV (RBC) [Entitic vol] 103.2 fL High 80.0 - 100.0 fL [facility] Monocytes (Bld) [#/Vol] 0.46 10*3/uL <0.87 k/uL [facility] Monocytes/100 WBC (Bld) 7.7 % [facility] Neutrophils (Bld) [#/Vol] 3.90 10*3/uL 1.45 - 7.50 k/uL [facility] Neutrophils/100 WBC (Bld) 65.4 % [facility] Nucleated RBC (Bld) [#/Vol] <0.01 k/uL [facility] Nucleated RBC/100 WBC (Bld) [Ratio] 0.0 /100 WBC [facility] Platelet mean volume (Bld) [Entitic vol] 9.5 fL 9.0 - 12.7 fL [facility] Platelets (Bld) [#/Vol] 231 10*3/uL 150 - 400 k/uL [facility] RBC (Bld) [#/Vol] 3.10 10*6/uL Low 4.20 - 6.0 0 m/uL [facility] WBC (Bld) [#/Vol] 5.96 10*3/uL 3.70 - 11.00 k/uL [facility] Basophils (Bld) [#/Vol] 0.04 10*3/uL Normal <0.11 [facility] Comment on above: Order Comment: Speci men Type: BLOOD SPECIMENOrdering Facility: [facility] Address: [address] [place] [address] Performed By: #### 5 7021-8 ####[facility] LABCLIA [id number] [place] [address] Basophils/100 WBC (Bld) 0.7 % Normal [facility] Comment on above: Order Comment: Speci men Type: BLOOD SPECIMENOrdering Facility: [facility] Address: [address] [place] [address] Performed By: #### 5 7021-8 ####[facility] LABCLIA [id number] [place] [address] Differential cell count method Nom (Bld) Auto Normal [facility] Comment on above: Order Comment: Speci men Type: BLOOD SPECIMENOrdering Facility: [facility] Address: [address] [place] [address] Performed By: #### 5 7021-8 ####[facility] LABCLIA [id number] [place] [address] Eosinophils (Bld) [#/Vol] 0.09 10*3/uL Normal <0.46 [facility] Comment on above: Order Comment: Speci men Type: BLOOD SPECIMENOrdering Facility: [facility] Address: [address] [place] [address] Performed By: #### 5 7021-8 ####[facility] LABCLIA [id number] [place] [address] Eosinophils/100 WBC (Bld) 1.5 % Normal [facility] Comment on above: Order Comment: Speci men Type: BLOOD SPECIMENOrdering Facility: [facility] Address: [address] [place] [address] Performed By: #### 5 7021-8 ####[facility] LABCLIA [id number] [place] [address] Erythrocyte distribution width (RBC) [Ratio] 17.9 % High 11.5-15.0 [facility] Comment on above: Order Comment: Speci men Type: BLOOD SPECIMENOrdering Facility: [facility] Address: [address] [place] [address] Performed By: #### 5 7021-8 ####[facility] LABCLIA [id number] [place] [address] Hematocrit (Bld) [Volume fraction] 32.0 % Low 39.0-51.0 [facility] Comment on above: Order Comment: Speci men Type: BLOOD SPECIMENOrdering Facility: [facility] Address: [address] [place] [address] Performed By: #### 5 7021-8 ####[facility] LABCLIA [id number] [place] [address] Hemoglobin (Bld) [Mass/Vol] 10.5 g/dL Low 13.0-17.0 [facility] Comment on above: Order Comment: Speci men Type: BLOOD SPECIMENOrdering Facility: [facility] Address: [address] [place] [address] Performed By: #### 5 7021-8 ####[facility] LABIA [id number] [place] [address] Immature granulocytes (Bld) [#/Vol] 0.03 10*3/uL Normal <0.10 [facility] Comment on above: Order Comment: Speci men Type: BLOOD SPECIMENOrdering Facility: [facility] Address: [address] [place] [address] Performed By: #### 5 7021-8 ####[facility] LABCLIA [id number] [place] [address] Immature granulocytes/100 WBC (Bld) 0.5 % Normal [facility] Comment on above: Order Comment: Speci men Type: BLOOD SPECIMENOrdering Facility: [facility] Address: [address] [place] [address] Performed By: #### 5 7021-8 ####[facility] LABIA [id number] [place] [address] Lymphocytes (Bld) [#/Vol] 1.44 10*3/uL Normal 1.00-4.00 [facility] Comment on above: Order Comment: Speci men Type: BLOOD SPECIMENOrdering Facility: [facility] Address: [address] [place] [address] Performed By: #### 5 7021-8 ####[facility] LABCLIA [id number] [place] [address] Lymphocytes/100 WBC (Bld) 24.2 % Normal [facility] Comment on above: Order Comment: Speci men Type: BLOOD SPECIMENOrdering Facility: [facility] Address: [address] [place] [address] Performed By: #### 5 7021-8 ####[facility] LABCLIA [id number] [place] [address] MCH (RBC) [Entitic mass] 33.9 pg Normal 26.0-34.0 [facility] Comment on above: Order Comment: Speci men Type: BLOOD SPECIMENOrdering Facility: [facility] Address: [address] [place] [address] Performed By: #### 5 7021-8 ####[facility] LABCLIA [id number] [place] [address] MCHC (RBC) [Mass/Vol] 32.8 g/dL Normal 30.5-36.0 [facility] Comment on above: Order Comment: Speci men Type: BLOOD SPECIMENOrdering Facility: [facility] Address: [address] [place] [address] Performed By: #### 5 7021-8 ####[facility] LABCLIA [id number] [place] [address] MCV (RBC) [Entitic vol] 103.2 fL High 80.0-100.0 [facility] Comment on above: Order Comment: Speci men Type: BLOOD SPECIMENOrdering Facility: [facility] Address: [address] [place] [address] Performed By: #### 5 7021-8 ####[facility] LABCLIA [id number] [place] [address] Monocytes (Bld) [#/Vol] 0.46 10*3/uL Normal <0.87 [facility] Comment on above: Order Comment: Speci men Type: BLOOD SPECIMENOrdering Facility: [facility] Address: [address] [place] [address] Performed By: #### 5 7021-8 ####[facility] LABCLIA [id number] [place] [address] Monocytes/100 WBC (Bld) 7.7 % Normal [facility] Comment on above: Order Comment: Speci men Type: BLOOD SPECIMENOrdering Facility: [facility] Address: [address] [place] [address] Performed By: #### 5 7021-8 ####[facility] LABCLIA [id number] [place] [address] Neutrophils (Bld) [#/Vol] 3.90 10*3/uL Normal 1.45-7.50 [facility] Comment on above: Order Comment: Speci men Type: BLOOD SPECIMENOrdering Facility: [facility] Address: [address] [place] [address] Performed By: #### 5 7021-8 ####[facility] LABCLIA [id number] [place] [address] Neutrophils/100 WBC (Bld) 65.4 % Normal [facility] Comment on above: Order Comment: Speci men Type: BLOOD SPECIMENOrdering Facility: [facility] Address: [address] [place] [address] Performed By: #### 5 7021-8 ####[facility] LABCLIA [id number] [place] [address] Nucleated RBC (Bld) [#/Vol] 10*3/uL Normal <0.01 [facility] Comment on above: Order Comment: Speci men Type: BLOOD SPECIMENOrdering Facility: [facility] Address: [address] [place] [address] Performed By: #### 5 7021-8 ####[facility] LABCLIA [id number] [place] [address] Nucleated RBC/100 WBC (Bld) [Ratio] 0.0 /100 WBC Normal [facility] Comment on above: Order Comment: Speci men Type: BLOOD SPECIMENOrdering Facility: [facility] Address: [address] [place] [address] Performed By: #### 5 7021-8 ####[facility] LABCLIA [id number] [place] [address] Platelet mean volume (Bld) [Entitic vol] 9.5 fL Normal 9.0-12.7 [facility] Comment on above: Order Comment: Speci men Type: BLOOD SPECIMENOrdering Facility: [facility] Address: [address] [place] [address] Performed By: #### 5 7021-8 ####[facility] LABCLIA [id number] [place] [address] Platelets (Bld) [#/Vol] 231 10*3/uL Normal 150-400 [facility] Comment on above: Order Comment: Speci men Type: BLOOD SPECIMENOrdering Facility: [facility] Address: [address] [place] [address] Performed By: #### 5 7021-8 ####[facility] LABCLIA [id number] [place] [address] RBC (Bld) [#/Vol] 3.10 10*6/uL Low 4.20-6.00 [facility] Comment on above: Order Comment: Speci men Type: BLOOD SPECIMENOrdering Facility: [facility] Address: [address] [place] [address] Performed By: #### 5 7021-8 ####[facility] LABCLIA [id number] [place] [address] WBC (Bld) [#/Vol] 5.96 10*3/uL Normal 3.70-11.00 [facility] Comment on above: Order Comment: Speci men Type: BLOOD SPECIMENOrdering Facility: [facility] Address: [address] [place] [address] Performed By: #### 5 7021-8 ####[facility] LABCLIA [id number] [place] [address] CNCNPATEDon 07-19-2023 CNCNPATED Normal [facility] CNOVSPon 07-19-2023 CNOVSP Normal [facility] Comprehensive metabolic 2000 panelon 07-19-2023 Albumin [Mass/Vol] 3.8 g/dL Low 3.9 - 4.9 g/dL [facility] ALP [Catalytic activity/Vol] 136 U/L High 38 - 113 U/L [facility] ALT [Catalytic activity/Vol] 29 U/L 10 - 54 U/L [facility] Anion gap [Moles/Vol] 11 mmol/L 9 - 18 mmol/L [facility] AST [Catalytic activity/Vol] 24 U/L 14 - 40 U/L [facility] Bilirubin [Mass/Vol] 1.2 mg/dL 0.2 - 1 .3 mg/dL [facility] Calcium [Mass/Vol] 10.7 mg/dL High 8.5 - 10. 2 mg/dL [facility] Chloride [Moles/Vol] 106 mmol/L High 97 - 10 5 mmol/L [facility] CO2 [Moles/Vol] 22 mmol/L 22 - 30 mmol/L [facility] Creatinine [Mass/Vol] 0.83 mg/dL 0.73 - 1.22 mg/dL [facility] Estimated Glomerular Filtration Rate 93 mL/min/1.73m >=60 mL/min/1.73 m [facility] Glucose [Mass/Vol] 152 mg/dL High 74 - 99 mg/dL [facility] Potassium [Moles/Vol] 3.7 mmol/L 3.7 - 5.1 mmol/L [facility] Protein [Mass/Vol] 6.3 g/dL 6.3 - 8.0 g/dL [facility] Sodium [Moles/Vol] 139 mmol/L 136 - 144 mmol/L [facility] Urea nitrogen [Mass/Vol] 14 mg/dL 9 - 24 mg/dL [facility] Albumin [Mass/Vol] 3.8 g/dL Low 3.9-4.9 [facility] Comment on above: Order Comment: Speci men Type: BLOOD SPECIMENOrdering Facility: [facility] Address: [address] [place] [address] Performed By: #### 2 4323-8 ####[facility] LABCLIA [id number] [place] [address] ALP [Catalytic activity/Vol] 136 U/L High 38-113 [facility] Comment on above: Order Comment: Speci men Type: BLOOD SPECIMENOrdering Facility: [facility] Address: [address] [place] [address] Performed By: #### 2 4323-8 ####[facility] LABCLIA [id number] [place] [address] ALT [Catalytic activity/Vol] 29 U/L Normal 10-54 [facility] Comment on above: Order Comment: Speci men Type: BLOOD SPECIMENOrdering Facility: [facility] Address: [address] [place] [address] Performed By: #### 2 4323-8 ####[facility] LABCLIA [id number] [place] [address] Anion gap [Moles/Vol] 11 mmol/L Normal 9-18 [facility] Comment on above: Order Comment: Speci men Type: BLOOD SPECIMENOrdering Facility: [facility] Address: [address] [place] [address] Performed By: #### 2 4323-8 ####[facility] LABCLIA [id number] [place] [address] AST [Catalytic activity/Vol] 24 U/L Normal 14-40 [facility] Comment on above: Order Comment: Speci men Type: BLOOD SPECIMENOrdering Facility: [facility] Address: [address] [place] [address] Performed By: #### 2 4323-8 ####[facility] LABCLIA [id number] [place] [address] Bilirubin [Mass/Vol] 1.2 mg/dL Normal 0.2-1.3 [facility] Comment on above: Order Comment: Speci men Type: BLOOD SPECIMENOrdering Facility: [facility] Address: [address] [place] [address] Performed By: #### 2 4323-8 ####[facility] LABCLIA [id number] [place] [address] Calcium [Mass/Vol] 10.7 mg/dL High 8.5-10.2 [facility] Comment on above: Order Comment: Speci men Type: BLOOD SPECIMENOrdering Facility: [facility] Address: [address] [place] [address] Performed By: #### 2 4323-8 ####[facility] LABCLIA [id number] [place] [address] Chloride [Moles/Vol] 106 mmol/L High 97-105 [facility] Comment on above: Order Comment: Speci men Type: BLOOD SPECIMENOrdering Facility: [facility] Address: [address] [place] [address] Performed By: #### 2 4323-8 ####[facility] LABCLIA [id number] [place] [address] CO2 [Moles/Vol] 22 mmol/L Normal 22-30 [facility] Comment on above: Order Comment: Speci men Type: BLOOD SPECIMENOrdering Facility: [facility] Address: [address] [place] [address] Performed By: #### 2 4323-8 ####[facility] LABCLIA [id number] [place] [address] Creatinine [Mass/Vol] 0.83 mg/dL Normal 0.73-1.22 [facility] Comment on above: Order Comment: Speci men Type: BLOOD SPECIMENOrdering Facility: [facility] Address: [address] [place], [place] [address] Performed By: #### 2 4323-8 ####[facility] LABCLIA [id number] [place] [address] Creatinine and Glomerular filtration rate.predicted panel (S/P/Bld) 93 mL/min/1.73m??? Normal >=60 [facility] Comment on above: Order Comment: Speci men Type: BLOOD SPECIMENOrdering Facility: [facility] Address: [address] [place] [address] Result Comment: Kathy mated Glomerular Filtration Rate [...] actual GFR. Performed By: #### 2 4323-8 ####[facility] LABCLIA [id number] [place] [address] Glucose [Mass/Vol] 152 mg/dL High 74-99 [facility] Comment on above: Order Comment: Rajanii luis eduardo Type: BLOOD SPECIMENOrdering Facility: [facility] Address: [address] [place] [address] Result Comment: The [place] [employer] (ADA) provides guidance for cutoff [...] Standards of Medical Care in Diabetes 2016, [place] [employer]. Diabetes Care. 2016.39(Suppl 1). Performed By: #### 2 4323-8 ####[facility] LABCLIA [id number] [place] [address] Potassium [Moles/Vol] 3.7 mmol/L Normal 3.7-5.1 [facility] Comment on above: Order Comment: Speci men Type: BLOOD SPECIMENOrdering Facility: [facility] Address: [address] [place] [address] Performed By: #### 2 4323-8 ####[facility] LABCLIA [id number] [place] [address] Protein [Mass/Vol] 6.3 g/dL Normal 6.3-8.0 [facility] Comment on above: Order Comment: Speci men Type: BLOOD SPECIMENOrdering Facility: [facility] Address: [address] [place] [address] Performed By: #### 2 4323-8 ####[facility] LABCLIA [id number] [place] [address] Sodium [Moles/Vol] 139 mmol/L Normal 136-144 [facility] Comment on above: Order Comment: Speci men Type: BLOOD SPECIMENOrdering Facility: [facility] Address: [address] [place] [address] Performed By: #### 2 4323-8 ####[facility] LABCLIA [id number] [place] [address] Urea nitrogen [Mass/Vol] 14 mg/dL Normal 9-24 [facility] Comment on above: Order Comment: Speci men Type: BLOOD SPECIMENOrdering Facility: [facility] Address: [address] [place] [address] Performed By: #### 2 4323-8 ####[facility] LABCLIA [id number] [place] [address] CBC W Auto Differential pane l (Bld)on 07-05-2023 Basophils (Bld) [#/Vol] 0.04 10*3/uL <0.11 k/uL [facility] Differential cell count method Nom (Bld) Auto [facility] Eosinophils (Bld) [#/Vol] 0.12 10*3/uL <0.46 k/uL [facility] Immature granulocytes (Bld) [#/Vol] <0.10 k/uL [facility] Immature granulocytes/100 WBC (Bld) 0.3 % [facility] Lymphocytes (Bld) [#/Vol] 1.27 10*3/uL 1.00 - 4.00 k/uL [facility] Monocytes (Bld) [#/Vol] 0.41 10*3/uL <0.87 k/uL [facility] Neutrophils (Bld) [#/Vol] 4.04 10*3/uL 1.45 - 7.50 k/uL [facility] Nucleated RBC (Bld) [#/Vol] <0.01 k/uL [facility] Nucleated RBC/100 WBC (Bld) [Ratio] 0.0 /100 WBC [facility] Platelet mean volume (Bld) [Entitic vol] 9.4 fL 9.0 - 12.7 fL [facility] Platelets (Bld) [#/Vol] 211 10*3/uL 150 - 400 k/uL [facility] WBC (Bld) [#/Vol] 5.90 10*3/uL 3.70 - 11.00 k/uL [facility] Basophils (Bld) [#/Vol] 0.04 10*3/uL Normal <0.11 [facility] Comment on above: Order Comment: Speci men Type: BLOOD SPECIMENOrdering Facility: [facility] Address: [address] [place] [address] Performed By: #### 5 7021-8 ####[facility] LABCLIA [id number] [place] [address] Basophils/100 WBC (Bld) 0.7 % Normal [facility] Comment on above: Order Comment: Speci men Type: BLOOD SPECIMENOrdering Facility: [facility] Address: [address] [place] [address] Performed By: #### 5 7021-8 ####[facility] LABCLIA [id number] [place] [address] Differential cell count method Nom (Bld) Auto Normal [facility] Comment on above: Order Comment: Speci men Type: BLOOD SPECIMENOrdering Facility: [facility] Address: [address] [place], [place] [address] Performed By: #### 5 7021-8 ####[facility] LABCLIA [id number] [place] [address] Eosinophils (Bld) [#/Vol] 0.12 10*3/uL Normal <0.46 [facility] Comment on above: Order Comment: Speci men Type: BLOOD SPECIMENOrdering Facility: [facility] Address: [address] [place] [address] Performed By: #### 5 7021-8 ####[facility] LABCLIA [id number] [place] [address] Eosinophils/100 WBC (Bld) 2.0 % Normal [facility] Comment on above: Order Comment: Speci men Type: BLOOD SPECIMENOrdering Facility: [facility] Address: [address] [place] [address] Performed By: #### 5 7021-8 ####[facility] LABCLIA [id number] [place] [address] Erythrocyte distribution width (RBC) [Ratio] 17.7 % High 11.5-15.0 [facility] Comment on above: Order Comment: Speci men Type: BLOOD SPECIMENOrdering Facility: [facility] Address: [address] [place] [address] Performed By: #### 5 7021-8 ####[facility] LABCLIA [id number] [place] [address] Hematocrit (Bld) [Volume fraction] 32.0 % Low 39.0-51.0 [facility] Comment on above: Order Comment: Speci men Type: BLOOD SPECIMENOrdering Facility: [facility] Address: [address] [place] [address] Performed By: #### 5 7021-8 ####[facility] LABCLIA [id number] [place] [address] Hemoglobin (Bld) [Mass/Vol] 10.6 g/dL Low 13.0-17.0 [facility] Comment on above: Order Comment: Speci men Type: BLOOD SPECIMENOrdering Facility: [facility] Address: [address] [place] [address] Performed By: #### 5 7021-8 ####[facility] LABCLIA [id number] [place] [address] Immature granulocytes (Bld) [#/Vol] 10*3/uL Normal <0.10 [facility] Comment on above: Order Comment: Speci men Type: BLOOD SPECIMENOrdering Facility: [facility] Address: [address] [place] [address] Performed By: #### 5 7021-8 ####[facility] LABCLIA [id number] [place] [address] Immature granulocytes/100 WBC (Bld) 0.3 % Normal [facility] Comment on above: Order Comment: Speci men Type: BLOOD SPECIMENOrdering Facility: [facility] Address: [address] [place] [address] Performed By: #### 5 7021-8 ####[facility] LABCLIA [id number] [place] [address] Lymphocytes (Bld) [#/Vol] 1.27 10*3/uL Normal 1.00-4.00 [facility] Comment on above: Order Comment: Speci men Type: BLOOD SPECIMENOrdering Facility: [facility] Address: [address] [place] [address] Performed By: #### 5 7021-8 ####[facility] LABCLIA [id number] [place] [address] Lymphocytes/100 WBC (Bld) 21.5 % Normal [facility] Comment on above: Order Comment: Speci men Type: BLOOD SPECIMENOrdering Facility: [facility] Address: [address] [place] [address] Performed By: #### 5 7021-8 ####[facility] LABCLIA [id number] [place] [address] MCH (RBC) [Entitic mass] 33.9 pg Normal 26.0-34.0 [facility] Comment on above: Order Comment: Speci men Type: BLOOD SPECIMENOrdering Facility: [facility] Address: [address] [place] [address] Performed By: #### 5 7021-8 ####[facility] LABCLIA [id number] [place] [address] MCHC (RBC) [Mass/Vol] 33.1 g/dL Normal 30.5-36.0 [facility] Comment on above: Order Comment: Speci men Type: BLOOD SPECIMENOrdering Facility: [facility] Address: [address] [place] [address] Performed By: #### 5 7021-8 ####[facility] LABCLIA [id number] [place] [address] MCV (RBC) [Entitic vol] 102.2 fL High 80.0-100.0 [facility] Comment on above: Order Comment: Speci men Type: BLOOD SPECIMENOrdering Facility: [facility] Address: [address] [place] [address] Performed By: #### 5 7021-8 ####[facility] LABCLIA [id number] [place] [address] Monocytes (Bld) [#/Vol] 0.41 10*3/uL Normal <0.87 [facility] Comment on above: Order Comment: Speci men Type: BLOOD SPECIMENOrdering Facility: [facility] Address: [address] [place] [address] Performed By: #### 5 7021-8 ####[facility] LABCLIA [id number] [place] [address] Monocytes/100 WBC (Bld) 6.9 % Normal [facility] Comment on above: Order Comment: Speci men Type: BLOOD SPECIMENOrdering Facility: [facility] Address: [address] [place] [address] Performed By: #### 5 7021-8 ####[facility] LABCLIA [id number] [place] [address] Neutrophils (Bld) [#/Vol] 4.04 10*3/uL Normal 1.45-7.50 [facility] Comment on above: Order Comment: Speci men Type: BLOOD SPECIMENOrdering Facility: [facility] Address: [address] [place] [address] Performed By: #### 5 7021-8 ####[facility] LABCLIA [id number] [place] [address] Neutrophils/100 WBC (Bld) 68.6 % Normal [facility] Comment on above: Order Comment: Speci men Type: BLOOD SPECIMENOrdering Facility: [facility] Address: [address] [place] [address] Performed By: #### 5 7021-8 ####[facility] LABCLIA [id number] [place] [address] Nucleated RBC (Bld) [#/Vol] 10*3/uL Normal <0.01 [facility] Comment on above: Order Comment: Speci men Type: BLOOD SPECIMENOrdering Facility: [facility] Address: [address] [place] [address] Performed By: #### 5 7021-8 ####[facility] LABIA [id number] [place] [address] Nucleated RBC/100 WBC (Bld) [Ratio] 0.0 /100 WBC Normal [facility] Comment on above: Order Comment: Speci men Type: BLOOD SPECIMENOrdering Facility: [facility] Address: [address] [place] [address] Performed By: #### 5 7021-8 ####[facility] LABCLIA [id number] [place] [address] Platelet mean volume (Bld) [Entitic vol] 9.4 fL Normal 9.0-12.7 [facility] Comment on above: Order Comment: Speci men Type: BLOOD SPECIMENOrdering Facility: [facility] Address: [address] [place] [address] Performed By: #### 5 7021-8 ####[facility] LABCLIA [id number] [place] [address] Platelets (Bld) [#/Vol] 211 10*3/uL Normal 150-400 [facility] Comment on above: Order Comment: Speci men Type: BLOOD SPECIMENOrdering Facility: [facility] Address: [address] [place] [address] Performed By: #### 5 7021-8 ####[facility] LABCLIA [id number] [place] [address] RBC (Bld) [#/Vol] 3.13 10*6/uL Low 4.20-6.00 [facility] Comment on above: Order Comment: Speci men Type: BLOOD SPECIMENOrdering Facility: [facility] Address: [address] [place] [address] Performed By: #### 5 7021-8 ####[facility] LABCLIA [id number] [place] [address] WBC (Bld) [#/Vol] 5.90 10*3/uL Normal 3.70-11.00 [facility] Comment on above: Order Comment: Speci men Type: BLOOD SPECIMENOrdering Facility: [facility] Address: [address] [place] [address] Performed By: #### 5 7021-8 ####[facility] LABCLIA [id number] [place] [address] [facility] CBC W AUTO DIFF BLDon [facility] BASOPHILS # BLD AUTO 0.04 [facility] DIFFERENTIAL METHOD BLD Auto [facility] EOSINOPHIL # BLD AUTO 0.12 [facility] LYMPHOCYTES # BLD AUTO 1.27 [facility] MONOCYTES # BLD AUTO 0.41 [facility] NEUTROPHILS # BLD AUTO 4.04 [facility] NRBC # BLD AUTO <0.01 [facility] NRBC/100 WBC BLD-RTO 0.0 /100 WBC [facility] PLATELET # BLD AUTO 211 [facility] PMV BLD AUTO 9.4 fL 9.0 - 12.7 fL [facility] WBC # BLD AUTO 5.90 [facility] IMM GRANULOCYTES # BLD AUTO <0.03 [facility] IMM GRANULOCYTES/LEUK NFR BLD AUTO 0.3 % [facility] Interpretation and review of laboratory results Abnormal [facility] Specimen Type: BLOOD SPECIMEN [facility] Address: [address] [place] [address] Original Ordering Provider: GRACE NEWBY [facility] CNOVSPon 07-05-2023 CNOVSP Normal [facility] Cancer Ag19-9 SerPl-aCncon 0 07-05-2023 Cancer Ag 19-9 Qn 1918.0 [arb'U]/mL High <36.0 [facility] Comment on above: Order Comment: Speci men Type: BLOOD SPECIMENOrdering Facility: [facility] Address: [address] [place] [address] Result Comment: [facility] er antigen 19-9 test is used [...] used interchangeably. Performed By: #### 2 4108-3 ####[facility] LABCLIA [id number] [address] [facility] Comprehensive metabolic 2000 panelon 07-05-2023 Albumin [Mass/Vol] 3.8 g/dL Low 3.9 - 4.9 g/dL [facility] ALP [Catalytic activity/Vol] 128 U/L High 38 - 113 U/L [facility] ALT [Catalytic activity/Vol] 24 U/L 10 - 54 U/L [facility] Anion gap [Moles/Vol] 10 mmol/L 9 - 18 mmol/L [facility] AST [Catalytic activity/Vol] 14 U/L 14 - 40 U/L [facility] Bilirubin [Mass/Vol] 1.3 mg/dL 0.2 - 1 .3 mg/dL [facility] Calcium [Mass/Vol] 10.3 mg/dL High 8.5 - 10. 2 mg/dL [facility] Chloride [Moles/Vol] 106 mmol/L High 97 - 10 5 mmol/L [facility] CO2 [Moles/Vol] 23 mmol/L 22 - 30 mmol/L [facility] Creatinine [Mass/Vol] 0.85 mg/dL 0.73 - 1.22 mg/dL [facility] Estimated Glomerular Filtration Rate 92 mL/min/1.73m >=60 mL/min/1.73 m [facility] Glucose [Mass/Vol] 164 mg/dL High 74 - 99 mg/dL [facility] Potassium [Moles/Vol] 3.6 mmol/L Low 3.7 - 5.1 mmol/L [facility] Protein [Mass/Vol] 6.3 g/dL 6.3 - 8.0 g/dL [facility] Sodium [Moles/Vol] 139 mmol/L 136 - 144 mmol/L [facility] Urea nitrogen [Mass/Vol] 19 mg/dL 9 - 24 mg/dL [facility] Albumin [Mass/Vol] 3.8 g/dL Low 3.9-4.9 [facility] Comment on above: Order Comment: Speci men Type: BLOOD SPECIMENOrdering Facility: [facility] Address: [address] [place], [place] [address] [address] Performed By: #### 2 4323-8 ####[facility] LABCLIA [id number] [place] [address] ALP [Catalytic activity/Vol] 128 U/L High 38-113 [facility] Comment on above: Order Comment: Speci men Type: BLOOD SPECIMENOrdering Facility: [facility] Address: [address] [place] [address] Performed By: #### 2 4323-8 ####[facility] LABCLIA [id number] [place] [address] ALT [Catalytic activity/Vol] 24 U/L Normal 10-54 [facility] Comment on above: Order Comment: Speci men Type: BLOOD SPECIMENOrdering Facility: [facility] Address: [address] [place] [address] Performed By: #### 2 4323-8 ####[facility] LABCLIA [id number] [place] [address] Anion gap [Moles/Vol] 10 mmol/L Normal 9-18 [facility] Comment on above: Order Comment: Speci men Type: BLOOD SPECIMENOrdering Facility: [facility] Address: [address] [place] [address] Performed By: #### 2 4323-8 ####[facility] LABCLIA [id number] [place] [address] AST [Catalytic activity/Vol] 14 U/L Normal 14-40 [facility] Comment on above: Order Comment: Speci men Type: BLOOD SPECIMENOrdering Facility: [facility] Address: [address] [place] [address] Performed By: #### 2 4323-8 ####[facility] LABCLIA [id number] [place] [address] Bilirubin [Mass/Vol] 1.3 mg/dL Normal 0.2-1.3 [facility] Comment on above: Order Comment: Speci men Type: BLOOD SPECIMENOrdering Facility: [facility] Address: [address] [place] [address] Performed By: #### 2 4323-8 ####[facility] LABCLIA [id number] [place] [address] Calcium [Mass/Vol] 10.3 mg/dL High 8.5-10.2 [facility] Comment on above: Order Comment: Speci men Type: BLOOD SPECIMENOrdering Facility: [facility] Address: [address] [place] [address] Performed By: #### 2 4323-8 ####[facility] LABCLIA [id number] [place] [address] Chloride [Moles/Vol] 106 mmol/L High 97-105 [facility] Comment on above: Order Comment: Speci men Type: BLOOD SPECIMENOrdering Facility: [facility] Address: [address] [place] [address] Performed By: #### 2 4323-8 ####[facility] LABCLIA [id number] [place] [address] CO2 [Moles/Vol] 23 mmol/L Normal 22-30 [facility] Comment on above: Order Comment: Speci men Type: BLOOD SPECIMENOrdering Facility: [facility] Address: [address] [place] [address] Performed By: #### 2 4323-8 ####[facility] LABCLIA [id number] [place] [address] Creatinine [Mass/Vol] 0.85 mg/dL Normal 0.73-1.22 [facility] Comment on above: Order Comment: Speci men Type: BLOOD SPECIMENOrdering Facility: [facility] Address: [address] [place] [address] Performed By: #### 2 4323-8 ####[facility] LABCLIA [id number] [place] [address] Creatinine and Glomerular filtration rate.predicted panel (S/P/Bld) 92 mL/min/1.73m??? Normal >=60 [facility] Comment on above: Order Comment: Speci men Type: BLOOD SPECIMENOrdering Facility: [facility] Address: [address] [place] [address] Result Comment: Kathy mated Glomerular Filtration Rate [...] actual GFR. Performed By: #### 2 4323-8 ####[facility] LABCLIA [id number] [place] [address] Glucose [Mass/Vol] 164 mg/dL High 74-99 [facility] Comment on above: Order Comment: Speci men Type: BLOOD SPECIMENOrdering Facility: [facility] Address: [address] [place], [place] [address] Result Comment: The [place] Diabetes Association (ADA) provides guidance for cutoff [...] Standards of Medical Care in Diabetes 2016, [place] [employer]. Diabetes Care. 2016.39(Suppl 1). Performed By: #### 2 4323-8 ####[facility] LABCLIA [id number] [place] [address] Potassium [Moles/Vol] 3.6 mmol/L Low 3.7-5.1 [facility] Comment on above: Order Comment: Speci men Type: BLOOD SPECIMENOrdering Facility: [facility] Address: [address] [place] [address] Performed By: #### 2 4323-8 ####[facility] LABCLIA [id number] [place] [address] Protein [Mass/Vol] 6.3 g/dL Normal 6.3-8.0 [facility] Comment on above: Order Comment: Speci men Type: BLOOD SPECIMENOrdering Facility: [facility] Address: [address] [place] [address] Performed By: #### 2 4323-8 ####[facility] LABCLIA [id number] [place] [address] Sodium [Moles/Vol] 139 mmol/L Normal 136-144 [facility] Comment on above: Order Comment: Speci men Type: BLOOD SPECIMENOrdering Facility: [facility] Address: [address] [place] [address] Performed By: #### 2 4323-8 ####[facility] LABCLIA [id number] [place] [address] Urea nitrogen [Mass/Vol] 19 mg/dL Normal 9-24 [facility] Comment on above: Order Comment: Speci men Type: BLOOD SPECIMENOrdering Facility: [facility] Address: [address] [place] [address] Performed By: #### 2 4323-8 ####[facility] LABCLIA [id number] [place] [address] Laboratory - Hematology and Cell countson 07-05-2023 Basophils/100 WBC (Bld) 0.7 % [facility] Eosinophils/100 WBC (Bld) 2.0 % [facility] Erythrocyte distribution width (RBC) [Ratio] 17.7 % High 11.5 - 15.0 % [facility] Hematocrit (Bld) [Volume fraction] 32.0 % Low 39.0 - 51.0 % [facility] Hemoglobin (Bld) [Mass/Vol] 10.6 g/dL Low 13.0 - 17.0 g/dL [facility] Lymphocytes/100 WBC (Bld) 21.5 % [facility] MCH (RBC) [Entitic mass] 33.9 pg 26.0 - 34.0 pg [facility] MCHC (RBC) [Mass/Vol] 33.1 g/dL 30.5 - 36.0 g/dL [facility] MCV (RBC) [Entitic vol] 102.2 fL High 80.0 - 100.0 fL [facility] Monocytes/100 WBC (Bld) 6.9 % [facility] Neutrophils/100 WBC (Bld) 68.6 % [facility] RBC (Bld) [#/Vol] 3.13 10*6/uL Low 4.20 - 6.0 0 m/uL [facility] CNPNon 06-23-2023 CNPN Normal [facility] CBC W Auto Differential pane l (Bld)on 06-21-2023 Basophils (Bld) [#/Vol] 0.03 10*3/uL Normal <0.11 [facility] Comment on above: Order Comment: Speci men Type: BLOOD SPECIMENOrdering Facility: [facility] Address: [address] [place] [address] Performed By: #### 5 7021-8 ####[facility] LABCLIA [id number] [place] [address] Basophils/100 WBC (Bld) 0.4 % Normal [facility] Comment on above: Order Comment: Speci men Type: BLOOD SPECIMENOrdering Facility: [facility] Address: [address] [place] [address] Performed By: #### 5 7021-8 ####[facility] LABCLIA [id number] [place] [address] Differential cell count method Nom (Bld) Auto Normal [facility] Comment on above: Order Comment: Speci men Type: BLOOD SPECIMENOrdering Facility: [facility] Address: [address] [place] [address] Performed By: #### 5 7021-8 ####[facility] LABCLIA [id number] [place] [address] Eosinophils (Bld) [#/Vol] 0.07 10*3/uL Normal <0.46 [facility] Comment on above: Order Comment: Speci men Type: BLOOD SPECIMENOrdering Facility: [facility] Address: [address] [place] [address] Performed By: #### 5 7021-8 ####[facility] LABCLIA [id number] [place] [address] Eosinophils/100 WBC (Bld) 0.9 % Normal [facility] Comment on above: Order Comment: Speci men Type: BLOOD SPECIMENOrdering Facility: [facility] Address: [address] [place] [address] Performed By: #### 5 7021-8 ####[facility] LABCLIA [id number] [place] [address] Erythrocyte distribution width (RBC) [Ratio] 16.7 % High 11.5-15.0 [facility] Comment on above: Order Comment: Speci men Type: BLOOD SPECIMENOrdering Facility: [facility] Address: [address] [place] [address] Performed By: #### 5 7021-8 ####[facility] LABCLIA [id number] [place] [address] Hematocrit (Bld) [Volume fraction] 29.9 % Low 39.0-51.0 [facility] Comment on above: Order Comment: Speci men Type: BLOOD SPECIMENOrdering Facility: [facility] Address: [address] [place] [address] Performed By: #### 5 7021-8 ####[facility] LABCLIA [id number] [place] [address] Hemoglobin (Bld) [Mass/Vol] 10.1 g/dL Low 13.0-17.0 [facility] Comment on above: Order Comment: Speci men Type: BLOOD SPECIMENOrdering Facility: [facility] Address: [address] [place] [address] Performed By: #### 5 7021-8 ####[facility] LABCLIA [id number] [place] [address] Immature granulocytes (Bld) [#/Vol] 0.03 10*3/uL Normal <0.10 [facility] Comment on above: Order Comment: Speci men Type: BLOOD SPECIMENOrdering Facility: [facility] Address: [address] [place] [address] Performed By: #### 5 7021-8 ####[facility] LABCLIA [id number] [place] [address] Immature granulocytes/100 WBC (Bld) 0.4 % Normal [facility] Comment on above: Order Comment: Speci men Type: BLOOD SPECIMENOrdering Facility: [facility] Address: [address] [place] [address] Performed By: #### 5 7021-8 ####[facility] LABCLIA [id number] [place] [address] Lymphocytes (Bld) [#/Vol] 1.48 10*3/uL Normal 1.00-4.00 [facility] Comment on above: Order Comment: Speci men Type: BLOOD SPECIMENOrdering Facility: [facility] Address: [address] [place] [address] Performed By: #### 5 7021-8 ####[facility] LABCLIA [id number] [place] [address] Lymphocytes/100 WBC (Bld) 20.0 % Normal [facility] Comment on above: Order Comment: Speci men Type: BLOOD SPECIMENOrdering Facility: [facility] Address: [address] [place] [address] Performed By: #### 5 7021-8 ####[facility] LABCLIA [id number] [place] [address] MCH (RBC) [Entitic mass] 34.0 pg Normal 26.0-34.0 [facility] Comment on above: Order Comment: Speci men Type: BLOOD SPECIMENOrdering Facility: [facility] Address: [address] [place] [address] Performed By: #### 5 7021-8 ####[facility] LABCLIA [id number] [place] [address] MCHC (RBC) [Mass/Vol] 33.8 g/dL Normal 30.5-36.0 [facility] Comment on above: Order Comment: Speci men Type: BLOOD SPECIMENOrdering Facility: [facility] Address: [address] [place] [address] Performed By: #### 5 7021-8 ####[facility] LABCLIA [id number] [place] [address] MCV (RBC) [Entitic vol] 100.7 fL High 80.0-100.0 [facility] Comment on above: Order Comment: Speci men Type: BLOOD SPECIMENOrdering Facility: [facility] Address: [address] [place] [address] Performed By: #### 5 7021-8 ####[facility] LABCLIA [id number] [place] [address] Monocytes (Bld) [#/Vol] 0.38 10*3/uL Normal <0.87 [facility] Comment on above: Order Comment: Speci men Type: BLOOD SPECIMENOrdering Facility: [facility] Address: [address] [place] [address] Performed By: #### 5 7021-8 ####[facility] LABCLIA [id number] [place] [address] Monocytes/100 WBC (Bld) 5.1 % Normal [facility] Comment on above: Order Comment: Speci men Type: BLOOD SPECIMENOrdering Facility: [facility] Address: [address] [place] [address] Performed By: #### 5 7021-8 ####[facility] LABIA [id number] [place] [address] Neutrophils (Bld) [#/Vol] 5.41 10*3/uL Normal 1.45-7.50 [facility] Comment on above: Order Comment: Speci men Type: BLOOD SPECIMENOrdering Facility: [facility] Address: [address] [place] [address] Performed By: #### 5 7021-8 ####[facility] LABCLIA [id number] [place] [address] Neutrophils/100 WBC (Bld) 73.2 % Normal [facility] Comment on above: Order Comment: Speci men Type: BLOOD SPECIMENOrdering Facility: [facility] Address: [address] [place] [address] Performed By: #### 5 7021-8 ####[facility] LABCLIA [id number] [place] [address] Nucleated RBC (Bld) [#/Vol] 10*3/uL Normal <0.01 [facility] Comment on above: Order Comment: Speci men Type: BLOOD SPECIMENOrdering Facility: [facility] Address: [address] [place] [address] Performed By: #### 5 7021-8 ####[facility] LABCLIA [id number] [place] [address] Nucleated RBC/100 WBC (Bld) [Ratio] 0.0 /100 WBC Normal [facility] Comment on above: Order Comment: Speci men Type: BLOOD SPECIMENOrdering Facility: [facility] Address: [address] [place] [address] Performed By: #### 5 7021-8 ####[facility] LABCLIA [id number] [place] [address] Platelet mean volume (Bld) [Entitic vol] 9.0 fL Normal 9.0-12.7 [facility] Comment on above: Order Comment: Speci men Type: BLOOD SPECIMENOrdering Facility: [facility] Address: [address] [place] [address] Performed By: #### 5 7021-8 ####[facility] LABCLIA [id number] [place] [address] Platelets (Bld) [#/Vol] 258 10*3/uL Normal 150-400 [facility] Comment on above: Order Comment: Speci men Type: BLOOD SPECIMENOrdering Facility: [facility] Address: [address] [place] [address] Performed By: #### 5 7021-8 ####[facility] LABCLIA [id number] [place] [address] RBC (Bld) [#/Vol] 2.97 10*6/uL Low 4.20-6.00 [facility] Comment on above: Order Comment: Speci men Type: BLOOD SPECIMENOrdering Facility: [facility] Address: [address] [place] [address] Performed By: #### 5 7021-8 ####[facility] [id number] [place] [address] WBC (Bld) [#/Vol] 7.40 10*3/uL Normal 3.70-11.00 [facility] Comment on above: Order Comment: Speci men Type: BLOOD SPECIMENOrdering Facility: [facility] Address: [address] [place] [address] Performed By: #### 5 7021-8 ####[facility] LABIA [id number] [place] [address] CNCNPATEDon 06-21-2023 CNCNPATED Normal [facility] CNOVSPon 06-21-2023 CNOVSP Normal [facility] Comprehensive metabolic 2000 panelon 06-21-2023 Albumin [Mass/Vol] 3.8 g/dL Low 3.9-4.9 [facility] Comment on above: Order Comment: Speci men Type: BLOOD SPECIMENOrdering Facility: [facility] Address: [address] [place] [address] Performed By: #### 2 4323-8 ####[facility] LABIA [id number] [place] [address] ALP [Catalytic activity/Vol] 121 U/L High 38-113 [facility] Comment on above: Order Comment: Speci men Type: BLOOD SPECIMENOrdering Facility: [facility] Address: [address] [place] [address] Performed By: #### 2 4323-8 ####[facility] LABCLIA [id number] [place] [address] ALT [Catalytic activity/Vol] 16 U/L Normal 10-54 [facility] Comment on above: Order Comment: Speci men Type: BLOOD SPECIMENOrdering Facility: [facility] Address: [address] [place] [address] Performed By: #### 2 4323-8 ####[facility] LABCLIA [id number] [place] [address] Anion gap [Moles/Vol] 9 mmol/L Normal 9-18 [facility] Comment on above: Order Comment: Speci men Type: BLOOD SPECIMENOrdering Facility: [facility] Address: [address] [place] [address] Performed By: #### 2 4323-8 ####[facility] LABCLIA [id number] [place] [address] AST [Catalytic activity/Vol] 15 U/L Normal 14-40 [facility] Comment on above: Order Comment: Speci men Type: BLOOD SPECIMENOrdering Facility: [facility] Address: [address] [place] [address] Performed By: #### 2 4323-8 ####[facility] LABCLIA [id number] [place] [address] Bilirubin [Mass/Vol] 1.2 mg/dL Normal 0.2-1.3 [facility] Comment on above: Order Comment: Speci men Type: BLOOD SPECIMENOrdering Facility: [facility] Address: [address] [place] [address] Performed By: #### 2 4323-8 ####[facility] LABCLIA [id number] [place] [address] Calcium [Mass/Vol] 10.2 mg/dL Normal 8.5-10.2 [facility] Comment on above: Order Comment: Speci men Type: BLOOD SPECIMENOrdering Facility: [facility] Address: [address] [place] [address] Performed By: #### 2 4323-8 ####[facility] LABCLIA [id number] [place] [address] Chloride [Moles/Vol] 107 mmol/L High 97-105 [facility] Comment on above: Order Comment: Speci men Type: BLOOD SPECIMENOrdering Facility: [facility] Address: [address] [place] [address] Performed By: #### 2 4323-8 ####[facility] LABCLIA [id number] [place] [address] CO2 [Moles/Vol] 23 mmol/L Normal 22-30 [facility] Comment on above: Order Comment: Speci men Type: BLOOD SPECIMENOrdering Facility: [facility] Address: [address] [place] [address] Performed By: #### 2 4323-8 ####[facility] LABCLIA [id number] [place] [address] Creatinine [Mass/Vol] 0.75 mg/dL Normal 0.73-1.22 [facility] Comment on above: Order Comment: Speci men Type: BLOOD SPECIMENOrdering Facility: [facility] Address: [address] [place] [address] Performed By: #### 2 4323-8 ####[facility] LABCLIA [id number] [place] [address] Creatinine and Glomerular filtration rate.predicted panel (S/P/Bld) 96 mL/min/1.73m??? Normal >=60 [facility] Comment on above: Order Comment: Speci men Type: BLOOD SPECIMENOrdering Facility: [facility] Address: [address] [place] [address] Result Comment: Kathy mated Glomerular Filtration Rate [...] actual GFR. Performed By: #### 2 4323-8 ####[facility] LABCLIA [id number] [place] [address] Glucose [Mass/Vol] 156 mg/dL High 74-99 [facility] Comment on above: Order Comment: Speci men Type: BLOOD SPECIMENOrdering Facility: [facility] Address: [address] [place] [address] Result Comment: The [place] [employer] (ADA) provides guidance for cutoff [...] Standards of Medical Care in Diabetes 2016, [place] [employer]. Diabetes Care. 2016.39(Suppl 1). Performed By: #### 2 4323-8 ####[facility] LABCLIA [id number] [place] [address] Potassium [Moles/Vol] 3.6 mmol/L Low 3.7-5.1 [facility] Comment on above: Order Comment: Rajanii luis eduardo Type: BLOOD SPECIMENOrdering Facility: [facility] Address: [address] [place] [address] Performed By: #### 2 4323-8 ####[facility] LABCLIA [id number] [place] [address] Protein [Mass/Vol] 6.1 g/dL Low 6.3-8.0 [facility] Comment on above: Order Comment: Speci men Type: BLOOD SPECIMENOrdering Facility: [facility] Address: [address] [place] [address] Performed By: #### 2 4323-8 ####[facility] LABCLIA [id number] [place] [address] Sodium [Moles/Vol] 139 mmol/L Normal 136-144 [facility] Comment on above: Order Comment: Speci men Type: BLOOD SPECIMENOrdering Facility: [facility] Address: [address] [place] [address] Performed By: #### 2 4323-8 ####[facility] LABCLIA [id number] [place] [address] Urea nitrogen [Mass/Vol] 13 mg/dL Normal 9-24 [facility] Comment on above: Order Comment: Speci men Type: BLOOD SPECIMENOrdering Facility: [facility] Address: [address] [place] [address] Performed By: #### 2 4323-8 ####[facility] LABCLIA [id number] [place] [address] CNPNon 06-12-2023 CNPN Normal [facility] CNPNon 06-08-2023 CNPN Normal [facility] CBC W Auto Differential pane l (Bld)on 06-07-2023 Basophils (Bld) [#/Vol] 0.04 10*3/uL Normal <0.11 [facility] Comment on above: Order Comment: Speci men Type: BLOOD SPECIMENOrdering Facility: [facility] Address: [address] [place] [id number] Performed By: #### 5 7021-8 ####[facility] LABCLIA [id number] [place] [address] Basophils/100 WBC (Bld) 0.4 % Normal [facility] Comment on above: Order Comment: Speci men Type: BLOOD SPECIMENOrdering Facility: [facility] Address: [address] [place] [address] Performed By: #### 5 7021-8 ####[facility] LABCLIA [id number] [place] [address] Differential cell count method Nom (Bld) Auto Normal [facility] Comment on above: Order Comment: Speci men Type: BLOOD SPECIMENOrdering Facility: [facility] [facility] Address: [address] [place] [address] Performed By: #### 5 7021-8 ####[facility] LABCLIA [id number] [place] [address] Eosinophils (Bld) [#/Vol] 10*3/uL Normal <0.46 [facility] Comment on above: Order Comment: Speci men Type: BLOOD SPECIMENOrdering Facility: [facility] Address: [address] [place] [address] Performed By: #### 5 7021-8 ####[facility] LABCLIA [id number] [place] [address] Eosinophils/100 WBC (Bld) 0.1 % Normal [facility] Comment on above: Order Comment: Speci men Type: BLOOD SPECIMENOrdering Facility: [facility] Address: [address] [place] [address] Performed By: #### 5 7021-8 ####[facility] LABCLIA [id number] [place] [address] Erythrocyte distribution width (RBC) [Ratio] 15.4 % High 11.5-15.0 [facility] Comment on above: Order Comment: Speci men Type: BLOOD SPECIMENOrdering Facility: [facility] Address: [address] [place] [address] Performed By: #### 5 7021-8 ####[facility] LABCLIA [id number] [place] [address] Hematocrit (Bld) [Volume fraction] 35.8 % Low 39.0-51.0 [facility] Comment on above: Order Comment: Speci men Type: BLOOD SPECIMENOrdering Facility: [facility] Address: [address] [place] [address] Performed By: #### 5 7021-8 ####[facility] LABCLIA [id number] [place] [address] Hemoglobin (Bld) [Mass/Vol] 11.7 g/dL Low 13.0-17.0 [facility] Comment on above: Order Comment: Speci men Type: BLOOD SPECIMENOrdering Facility: [facility] Address: [address] [place] [address] Performed By: #### 5 7021-8 ####[facility] LABCLIA [id number] [place] [address] Immature granulocytes (Bld) [#/Vol] 0.04 10*3/uL Normal <0.10 [facility] Comment on above: Order Comment: Speci men Type: BLOOD SPECIMENOrdering Facility: [facility] Address: [address] [place] [address] Performed By: #### 5 7021-8 ####[facility] LABCLIA [id number] [place] [address] Immature granulocytes/100 WBC (Bld) 0.4 % Normal [facility] Comment on above: Order Comment: Speci men Type: BLOOD SPECIMENOrdering Facility: [facility] Address: [address] [place] [address] Performed By: #### 5 7021-8 ####[facility] LABCLIA [id number] [place] [address] Lymphocytes (Bld) [#/Vol] 1.39 10*3/uL Normal 1.00-4.00 [facility] Comment on above: Order Comment: Speci men Type: BLOOD SPECIMENOrdering Facility: [facility] Address: [address] [place] [address] Performed By: #### 5 7021-8 ####[facility] LABCLIA [id number] [place] [address] Lymphocytes/100 WBC (Bld) 12.4 % Normal [facility] Comment on above: Order Comment: Speci men Type: BLOOD SPECIMENOrdering Facility: [facility] Address: [address] [place] [address] Performed By: #### 5 7021-8 ####[facility] LABCLIA [id number] [place] [address] MCH (RBC) [Entitic mass] 33.0 pg Normal 26.0-34.0 [facility] Comment on above: Order Comment: Speci men Type: BLOOD SPECIMENOrdering Facility: [facility] Address: [address] [place] [address] Performed By: #### 5 7021-8 ####[facility] LABCLIA [id number] [place] [address] MCHC (RBC) [Mass/Vol] 32.7 g/dL Normal 30.5-36.0 [facility] Comment on above: Order Comment: Speci men Type: BLOOD SPECIMENOrdering Facility: [facility] Address: [address] [place] [address] Performed By: #### 5 7021-8 ####[facility] LABCLIA [id number] [place] [address] MCV (RBC) [Entitic vol] 100.8 fL High 80.0-100.0 [facility] Comment on above: Order Comment: Speci men Type: BLOOD SPECIMENOrdering Facility: [facility] Address: [address] [place] [address] Performed By: #### 5 7021-8 ####[facility] LABCLIA [id number] [place] [address] Monocytes (Bld) [#/Vol] 0.76 10*3/uL Normal <0.87 [facility] Comment on above: Order Comment: Speci men Type: BLOOD SPECIMENOrdering Facility: [facility] Address: [address] [place] [address] Performed By: #### 5 7021-8 ####[facility] LABCLIA [id number] [place] [address] Monocytes/100 WBC (Bld) 6.8 % Normal [facility] Comment on above: Order Comment: Speci men Type: BLOOD SPECIMENOrdering Facility: [facility] Address: [address] [place] [address] Performed By: #### 5 7021-8 ####[facility] LABCLIA [id number] [place] [address] Neutrophils (Bld) [#/Vol] 8.98 10*3/uL High 1.45-7.50 [facility] Comment on above: Order Comment: Speci men Type: BLOOD SPECIMENOrdering Facility: [facility] Address: [address] [place] [address] Performed By: #### 5 7021-8 ####[facility] LABCLIA [id number] [place] [address] Neutrophils/100 WBC (Bld) 79.9 % Normal [facility] Comment on above: Order Comment: Speci men Type: BLOOD SPECIMENOrdering Facility: [facility] Address: [address] [place] [address] Performed By: #### 5 7021-8 ####[facility] LABCLIA [id number] [place] [address] Nucleated RBC (Bld) [#/Vol] 10*3/uL Normal <0.01 [facility] Comment on above: Order Comment: Speci men Type: BLOOD SPECIMENOrdering Facility: [facility] Address: [address] [place] [address] Performed By: #### 5 7021-8 ####[facility] LABCLIA [id number] [place] [address] Nucleated RBC/100 WBC (Bld) [Ratio] 0.0 /100 WBC Normal [facility] Comment on above: Order Comment: Speci men Type: BLOOD SPECIMENOrdering Facility: [facility] Address: [address] [place] [address] Performed By: #### 5 7021-8 ####[facility] LABCLIA [id number] [place] [address] Platelet mean volume (Bld) [Entitic vol] 9.9 fL Normal 9.0-12.7 [facility] Comment on above: Order Comment: Speci men Type: BLOOD SPECIMENOrdering Facility: [facility] Address: [address] [place] [address] Performed By: #### 5 7021-8 ####[facility] LABCLIA [id number] [place] [address] Platelets (Bld) [#/Vol] 297 10*3/uL Normal 150-400 [facility] Comment on above: Order Comment: Speci men Type: BLOOD SPECIMENOrdering Facility: [facility] Address: [address] [place] [address] Performed By: #### 5 7021-8 ####[facility] LABCLIA [id number] [place] [address] RBC (Bld) [#/Vol] 3.55 10*6/uL Low 4.20-6.00 [facility] Comment on above: Order Comment: Speci men Type: BLOOD SPECIMENOrdering Facility: [facility] Address: [address] [place] [address] Performed By: #### 5 7021-8 ####[facility] LABIA [id number] [place] [address] WBC (Bld) [#/Vol] 11.22 10*3/uL High 3.70-11.00 [facility] Comment on above: Order Comment: Speci men Type: BLOOD SPECIMENOrdering Facility: [facility] Address: [address] [place] [address] Performed By: #### 5 7021-8 ####[facility] LABCLIA [id number] [place] [address] CNCNPATEDon 06-07-2023 CNCNPATED Normal [facility] CNNURSEon 06-07-2023 CNNURSE Normal [facility] CNOVSPon 06-07-2023 CNOVSP Normal [facility] CNPNon 06-07-2023 CNPN Normal [facility] Comprehensive metabolic 2000 panelon 06-07-2023 Albumin [Mass/Vol] 4.3 g/dL Normal 3.9-4.9 [facility] Comment on above: Order Comment: Speci men Type: BLOOD SPECIMENOrdering Facility: [facility] Address: [address] [place] [address] Performed By: #### 2 4323-8 ####[facility] LABCLIA [id number] [place] [address] ALP [Catalytic activity/Vol] 127 U/L High 38-113 [facility] Comment on above: Order Comment: Speci men Type: BLOOD SPECIMENOrdering Facility: [facility] Address: [address] [place] [address] Performed By: #### 2 4323-8 ####[facility] LABCLIA [id number] [place] [address] ALT [Catalytic activity/Vol] 34 U/L Normal 10-54 [facility] Comment on above: Order Comment: Speci men Type: BLOOD SPECIMENOrdering Facility: [facility] Address: [address] [place] [address] Performed By: #### 2 4323-8 ####[facility] LABCLIA [id number] [place] [address] Anion gap [Moles/Vol] 9 mmol/L Normal 9-18 [facility] Comment on above: Order Comment: Speci men Type: BLOOD SPECIMENOrdering Facility: [facility] Address: [address] [place] [address] Performed By: #### 2 4323-8 ####[facility] LABCLIA [id number] [place] [address] AST [Catalytic activity/Vol] 25 U/L Normal 14-40 [facility] Comment on above: Order Comment: Speci men Type: BLOOD SPECIMENOrdering Facility: [facility] Address: [address] [place] [address] Performed By: #### 2 4323-8 ####[facility] LABCLIA [id number] [place] [address] Bilirubin [Mass/Vol] 1.3 mg/dL Normal 0.2-1.3 [facility] Comment on above: Order Comment: Speci men Type: BLOOD SPECIMENOrdering Facility: [facility] Address: [address] [place] [address] Performed By: #### 2 4323-8 ####[facility] LABCLIA [id number] [place] [address] Calcium [Mass/Vol] 10.7 mg/dL High 8.5-10.2 [facility] Comment on above: Order Comment: Speci men Type: BLOOD SPECIMENOrdering Facility: [facility] Address: [address] [place] [address] Performed By: #### 2 4323-8 ####[facility] LABCLIA [id number] [place] [address] Chloride [Moles/Vol] 103 mmol/L Normal 97-105 [facility] Comment on above: Order Comment: Speci men Type: BLOOD SPECIMENOrdering Facility: [facility] Address: [address] [place] [address] Performed By: #### 2 4323-8 ####[facility] LABCLIA [id number] [place] [address] CO2 [Moles/Vol] 25 mmol/L Normal 22-30 [facility] Comment on above: Order Comment: Speci men Type: BLOOD SPECIMENOrdering Facility: [facility] Address: [address] [place] [address] Performed By: #### 2 4323-8 ####[facility] LABCLIA [id number] [place] [address] Creatinine [Mass/Vol] 0.78 mg/dL Normal 0.73-1.22 [facility] Comment on above: Order Comment: Speci men Type: BLOOD SPECIMENOrdering Facility: [facility] Address: [address] [place] [address] Performed By: #### 2 4323-8 ####[facility] LABCLIA [id number] [place] [address] Creatinine and Glomerular filtration rate.predicted panel (S/P/Bld) 95 mL/min/1.73m??? Normal >=60 [facility] Comment on above: Order Comment: Speci men Type: BLOOD SPECIMENOrdering Facility: [facility] Address: [address] [place] [address] Result Comment: Kathy mated Glomerular Filtration Rate [...] actual GFR. Performed By: #### 2 4323-8 ####[facility] LABCLIA [id number] [place] [address] Glucose [Mass/Vol] 165 mg/dL High 74-99 [facility] Comment on above: Order Comment: Noemí hoff Type: BLOOD SPECIMENOrdering Facility: [facility] Address: [address] [place] [address] Result Comment: The [place] [employer] (ADA) provides guidance for cutoff [...] Standards of Medical Care in Diabetes 2016, [place] [employer]. Diabetes Care. 2016.39(Suppl 1). Performed By: #### 2 4323-8 ####[facility] LABCLIA [id number] [place] [address] Potassium [Moles/Vol] 4.3 mmol/L Normal 3.7-5.1 [facility] Comment on above: Order Comment: Speci men Type: BLOOD SPECIMENOrdering Facility: [facility] Address: [address] [place] [address] Performed By: #### 2 4323-8 ####[facility] LABCLIA [id number] [place] [address] Protein [Mass/Vol] 6.9 g/dL Normal 6.3-8.0 [facility] Comment on above: Order Comment: Speci men Type: BLOOD SPECIMENOrdering Facility: [facility] Address: [address] [place] [address] Performed By: #### 2 4323-8 ####[facility] LABCLIA [id number] [place] [address] Sodium [Moles/Vol] 137 mmol/L Normal 136-144 [facility] Comment on above: Order Comment: Speci men Type: BLOOD SPECIMENOrdering Facility: [facility] Address: [address] [place] [address] Performed By: #### 2 4323-8 ####[facility] LABCLIA [id number] [place] [address] Urea nitrogen [Mass/Vol] 18 mg/dL Normal 9-24 [facility] Comment on above: Order Comment: Speci men Type: BLOOD SPECIMENOrdering Facility: [facility] Address: [address] [place] [address] Performed By: #### 2 4323-8 ####[facility] LABCLIA [id number] [place] [address] CNPNon 06-06-2023 CNPN Normal [facility] CBC W Auto Differential pane l (Bld)on 05-24-2023 Basophils (Bld) [#/Vol] 10*3/uL Normal <0.11 [facility] Comment on above: Order Comment: Speci men Type: BLOOD SPECIMENOrdering Facility: [facility] Address: [address] [place] [address] Performed By: #### 5 7021-8 ####[facility] LABCLIA [id number] [place] [address] Basophils/100 WBC (Bld) 0.3 % Normal [facility] Comment on above: Order Comment: Speci men Type: BLOOD SPECIMENOrdering Facility: [facility] Address: [address] [place] [address] Performed By: #### 5 7021-8 ####[facility] LABCLIA [id number] [place] [address] Differential cell count method Nom (Bld) Auto Normal [facility] Comment on above: Order Comment: Speci men Type: BLOOD SPECIMENOrdering Facility: [facility] Address: [address] [place] [address] Performed By: #### 5 7021-8 ####[facility] LABCLIA [id number] [place] [address] Eosinophils (Bld) [#/Vol] 0.04 10*3/uL Normal <0.46 [facility] Comment on above: Order Comment: Speci men Type: BLOOD SPECIMENOrdering Facility: [facility] Address: [address] [place] [address] Performed By: #### 5 7021-8 ####[facility] LABCLIA [id number] [place] [address] Eosinophils/100 WBC (Bld) 0.5 % Normal [facility] Comment on above: Order Comment: Speci men Type: BLOOD SPECIMENOrdering Facility: [facility] Address: [address] [place] [address] Performed By: #### 5 7021-8 ####[facility] LABCLIA [id number] [place] [address] Erythrocyte distribution width (RBC) [Ratio] 19.4 % High 11.5-15.0 [facility] Comment on above: Order Comment: Speci men Type: BLOOD SPECIMENOrdering Facility: [facility] Address: [address] [place] [address] Performed By: #### 5 7021-8 ####[facility] LABCLIA [id number] [place] [address] Hematocrit (Bld) [Volume fraction] 33.0 % Low 39.0-51.0 [facility] Comment on above: Order Comment: Speci men Type: BLOOD SPECIMENOrdering Facility: [facility] Address: [address] [place] [address] Performed By: #### 5 7021-8 ####[facility] LABCLIA [id number] [place] [address] Hemoglobin (Bld) [Mass/Vol] 10.5 g/dL Low 13.0-17.0 [facility] Comment on above: Order Comment: Speci men Type: BLOOD SPECIMENOrdering Facility: [facility] Address: [address] [place] [address] Performed By: #### 5 7021-8 ####[facility] LABCLIA [id number] [place] [address] Immature granulocytes (Bld) [#/Vol] 0.03 10*3/uL Normal <0.10 [facility] Comment on above: Order Comment: Speci men Type: BLOOD SPECIMENOrdering Facility: [facility] Address: [address] [place] [address] Performed By: #### 5 7021-8 ####[facility] LABCLIA [id number] [place] [address] Immature granulocytes/100 WBC (Bld) 0.4 % Normal [facility] Comment on above: Order Comment: Speci men Type: BLOOD SPECIMENOrdering Facility: [facility] Address: [address] [place] [address] Performed By: #### 5 7021-8 ####[facility] LABCLIA [id number] [place] [address] Lymphocytes (Bld) [#/Vol] 1.47 10*3/uL Normal 1.00-4.00 [facility] Comment on above: Order Comment: Speci men Type: BLOOD SPECIMENOrdering Facility: [facility] Address: [address] [place] [address] Performed By: #### 5 7021-8 ####[facility] LABCLIA [id number] [place] [address] Lymphocytes/100 WBC (Bld) 19.8 % Normal [facility] Comment on above: Order Comment: Speci men Type: BLOOD SPECIMENOrdering Facility: [facility] Address: [address] [place] [address] Performed By: #### 5 7021-8 ####[facility] LABCLIA [id number] [place] [address] MCH (RBC) [Entitic mass] 32.5 pg Normal 26.0-34.0 [facility] Comment on above: Order Comment: Speci men Type: BLOOD SPECIMENOrdering Facility: [facility] Address: [address] [place] [address] Performed By: #### 5 7021-8 ####[facility] LABCLIA [id number] [place] [address] MCHC (RBC) [Mass/Vol] 31.8 g/dL Normal 30.5-36.0 [facility] Comment on above: Order Comment: Speci men Type: BLOOD SPECIMENOrdering Facility: [facility] Address: [address] [place] [address] Performed By: #### 5 7021-8 ####[facility] LABCLIA [id number] [place] [address] MCV (RBC) [Entitic vol] 102.2 fL High 80.0-100.0 [facility] Comment on above: Order Comment: Speci men Type: BLOOD SPECIMENOrdering Facility: [facility] Address: [address] [place] [address] Performed By: #### 5 7021-8 ####[facility] LABCLIA [id number] [place] [address] Monocytes (Bld) [#/Vol] 0.80 10*3/uL Normal <0.87 [facility] Comment on above: Order Comment: Speci men Type: BLOOD SPECIMENOrdering Facility: [facility] Address: [address] [place] [address] Performed By: #### 5 7021-8 ####[facility] LABCLIA [id number] [place] [address] Monocytes/100 WBC (Bld) 10.8 % Normal [facility] Comment on above: Order Comment: Speci men Type: BLOOD SPECIMENOrdering Facility: [facility] Address: [address] [place] [address] Performed By: #### 5 7021-8 ####[facility] LABCLIA [id number] [place] [address] Neutrophils (Bld) [#/Vol] 5.07 10*3/uL Normal 1.45-7.50 [facility] Comment on above: Order Comment: Speci men Type: BLOOD SPECIMENOrdering Facility: [facility] Address: [address] [place] [address] Performed By: #### 5 7021-8 ####[facility] LABCLIA [id number] [place] [address] Neutrophils/100 WBC (Bld) 68.2 % Normal [facility] Comment on above: Order Comment: Speci men Type: BLOOD SPECIMENOrdering Facility: [facility] Address: [address] [place] [address] Performed By: #### 5 7021-8 ####[facility] LABCLIA [id number] [place] [address] Nucleated RBC (Bld) [#/Vol] 10*3/uL Normal <0.01 [facility] Comment on above: Order Comment: Speci men Type: BLOOD SPECIMENOrdering Facility: [facility] Address: [address] [place] [address] Performed By: #### 5 7021-8 ####[facility] LABIA [id number] [place] [address] Nucleated RBC/100 WBC (Bld) [Ratio] 0.0 /100 WBC Normal [facility] Comment on above: Order Comment: Speci men Type: BLOOD SPECIMENOrdering Facility: [facility] Address: [address] [place] [address] Performed By: #### 5 7021-8 ####[facility] LABIA [id number] [place] [address] Platelet mean volume (Bld) [Entitic vol] 9.9 fL Normal 9.0-12.7 [facility] Comment on above: Order Comment: Speci men Type: BLOOD SPECIMENOrdering Facility: [facility] Address: [address] [place] [address] Performed By: #### 5 7021-8 ####[facility] LABIA [id number] [place] [address] Platelets (Bld) [#/Vol] 222 10*3/uL Normal 150-400 [facility] Comment on above: Order Comment: Speci men Type: BLOOD SPECIMENOrdering Facility: [facility] Address: [address] [place], [place] [address] Performed By: #### 5 7021-8 ####[facility] LABCLIA [id number] [place] [address] RBC (Bld) [#/Vol] 3.23 10*6/uL Low 4.20-6.00 [facility] Comment on above: Order Comment: Speci men Type: BLOOD SPECIMENOrdering Facility: [facility] Address: [address] [place] [address] Performed By: #### 5 7021-8 ####[facility] LABCLIA [id number] [place] [address] WBC (Bld) [#/Vol] 7.43 10*3/uL Normal 3.70-11.00 [facility] Comment on above: Order Comment: Speci men Type: BLOOD SPECIMENOrdering Facility: [facility] Address: [address] [place] [address] Performed By: #### 5 7021-8 ####[facility] LABCLIA [id number] [place] [address] CNOVSPon 05-24-2023 CNOVSP Normal [facility] Cancer Ag19-9 SerPl-aCncon 0 05-24-2023 Cancer Ag 19-9 Qn 1757.0 [arb'U]/mL High <36.0 [facility] Comment on above: Order Comment: Speci men Type: BLOOD SPECIMENOrdering Facility: [facility] Address: [address] [place] [address] Result Comment: [facility] er antigen 19-9 test is used as an aid in monitoring response to treatment or recurrence in patients with established pancreatic, hepatobiliary, or gastrointestinal malignancies. Clinical correlation is required.The CA 19-9 Antigen test was performed using the [employer] DXI paramagnetic particle chemiluminescent immunoassay method. Results obtained with different assay methods or kits cannot be used interchangeably. Performed By: #### 2 4108-3 ####[facility] LABCLIA [id number] [address] [place] Comprehensive metabolic 2000 panelon 05-24-2023 Albumin [Mass/Vol] 4.3 g/dL Normal 3.9-4.9 [facility] Comment on above: Order Comment: Speci men Type: BLOOD SPECIMENOrdering Facility: [facility] Address: [address] [place] [address] Performed By: #### 2 4323-8 ####[facility] LABCLIA [id number] [place] [address] ALP [Catalytic activity/Vol] 127 U/L High 38-113 [facility] Comment on above: Order Comment: Speci men Type: BLOOD SPECIMENOrdering Facility: [facility] Address: [address] [place] [address] Performed By: #### 2 4323-8 ####[facility] LABCLIA [id number] [place] [address] ALT [Catalytic activity/Vol] 22 U/L Normal 10-54 [facility] Comment on above: Order Comment: Speci men Type: BLOOD SPECIMENOrdering Facility: [facility] Address: [address] [place] [address] Performed By: #### 2 4323-8 ####[facility] LABCLIA [id number] [place] [address] Anion gap [Moles/Vol] 9 mmol/L Normal 9-18 [facility] [facility] Comment on above: Order Comment: Speci men Type: BLOOD SPECIMENOrdering Facility: [facility] Address: [address] [place] [address] Performed By: #### 2 4323-8 ####[facility] LABCLIA [id number] [place] [address] AST [Catalytic activity/Vol] 20 U/L Normal 14-40 [facility] Comment on above: Order Comment: Speci men Type: BLOOD SPECIMENOrdering Facility: [facility] Address: [address] [place] [address] Performed By: #### 2 4323-8 ####[facility] LABCLIA [id number] [place] [address] Bilirubin [Mass/Vol] 1.3 mg/dL Normal 0.2-1.3 [facility] Comment on above: Order Comment: Speci men Type: BLOOD SPECIMENOrdering Facility: [facility] Address: [address] [place] [address] Performed By: #### 2 4323-8 ####[facility] LABCLIA [id number] [place] [address] Calcium [Mass/Vol] 10.8 mg/dL High 8.5-10.2 [facility] Comment on above: Order Comment: Speci men Type: BLOOD SPECIMENOrdering Facility: [facility] Address: [address] [place] [address] Performed By: #### 2 4323-8 ####[facility] LABCLIA [id number] [place] [address] Chloride [Moles/Vol] 101 mmol/L Normal 97-105 [facility] Comment on above: Order Comment: Speci men Type: BLOOD SPECIMENOrdering Facility: [facility] Address: [address] [place] [address] Performed By: #### 2 4323-8 ####[facility] LABCLIA [id number] [place] [address] CO2 [Moles/Vol] 25 mmol/L Normal 22-30 [facility] Comment on above: Order Comment: Speci men Type: BLOOD SPECIMENOrdering Facility: [facility] Address: [address] [place] [address] Performed By: #### 2 4323-8 ####[facility] LABCLIA [id number] [place] [address] Creatinine [Mass/Vol] 0.84 mg/dL Normal 0.73-1.22 [facility] Comment on above: Order Comment: Speci men Type: BLOOD SPECIMENOrdering Facility: [facility] Address: [address] [place] [address] Performed By: #### 2 4323-8 ####[facility] LABCLIA [id number] [place] [address] Creatinine and Glomerular filtration rate.predicted panel (S/P/Bld) 93 mL/min/1.73m??? Normal >=60 [facility] Comment on above: Order Comment: Speci men Type: BLOOD SPECIMENOrdering Facility: [facility] Address: [address] [place] [address] Result Comment: Kathy mated Glomerular Filtration Rate [...] actual GFR. Performed By: #### 2 4323-8 ####[facility] LABCLIA [id number] [place] [address] Glucose [Mass/Vol] 129 mg/dL High 74-99 [facility] Comment on above: Order Comment: Rajanii luis eduardo Type: BLOOD SPECIMENOrdering Facility: [facility] Address: [address] [place] [address] Result Comment: The [place] Diabetes Association (ADA) provides guidance for cutoff [...] Standards of Medical Care in Diabetes 2016, [place] [employer]. Diabetes Care. 2016.39(Suppl 1). Performed By: #### 2 4323-8 ####[facility] LABCLIA [id number] [place] [address] Potassium [Moles/Vol] 4.0 mmol/L Normal 3.7-5.1 [facility] Comment on above: Order Comment: Speci men Type: BLOOD SPECIMENOrdering Facility: [facility] Address: [address] [place] [address] Performed By: #### 2 4323-8 ####[facility] LABCLIA [id number] [place] [address] Protein [Mass/Vol] 7.2 g/dL Normal 6.3-8.0 [facility] Comment on above: Order Comment: Speci men Type: BLOOD SPECIMENOrdering Facility: [facility] Address: [address] [place] [address] Performed By: #### 2 4323-8 ####[facility] LABCLIA [id number] [place] [address] Sodium [Moles/Vol] 135 mmol/L Low 136-144 [facility] Comment on above: Order Comment: Speci men Type: BLOOD SPECIMENOrdering Facility: [facility] Address: [address] [place] [address] Performed By: #### 2 4323-8 ####[facility] LABCLIA [id number] [place] [address] Urea nitrogen [Mass/Vol] 20 mg/dL Normal 9-24 [facility] Comment on above: Order Comment: Speci men Type: BLOOD SPECIMENOrdering Facility: [facility] Address: [address] [place] [address] Performed By: #### 2 4323-8 ####[facility] LABCLIA [id number] [place] [address] CREATININE BLDon 05-18-2023 Creatinine [Mass/Vol] 0.80 mg/dL Normal 0.73-1.22 [facility] Comment on above: Order Comment: Speci men Type: BLOOD SPECIMENOrdering Facility: [facility] Address: [address] [place] [id number] Performed By: #### C RET1 ####[facility] LABCLIA [id number] [place] [address] Creatinine and Glomerular filtration rate.predicted panel (S/P/Bld) 94 mL/min/1.73m??? Normal >=60 [facility] Comment on above: Order Comment: Speci men Type: BLOOD SPECIMENOrdering Facility: [facility] Address: [address] [place] [id number] Result Comment: Kathy mated Glomerular Filtration Rate [...] actual GFR. Performed By: #### C RET1 ####[facility] LABCLIA [id number] [place] [address] CT ABD/PEL W IVCONon 023 CT ABD/PEL W IVCON Normal [facility] CT Abdomen and Pelvis W cont rast Kodi 05-18-2023 IMPRESSION: 1. Worsening metastatic disease when compared to the prior study with worsening retroperitoneal adenopathy as described above. There is also worsening peritoneal carcinomatosis and a worsening subcutaneous nodule along the anterior abdominal wall. 2. Moderate to marked enlargement of the prostate gland. Transcribe Date/Time: May 18 2023 1:27P Dictated by: SHANE CMGOWAN MD This examination was interpreted and the report reviewed and electronically signed by: SHANE MCGOWAN MD on May 18 2023 1:44PM EST Thank you for allowing us to participate in the care of your patient. Should there be any questions regarding this interpretation, please call [phone]. If you are unable to reach us at the number above, please feel free to contact [facility] eRadiology at [phone]. DIVISION OF RADIOLOGY * * *Final Report* * * DATE OF EXAM: May 18 2023 11:17AM [facility] 0530 - CT ABD/PEL W IVCON / [...] when it measured 4.9 x 3.4 cm. Delivery Sales Worker Mesentery/Peritoneum: Soft tissue implant anterior to the [...] chest CT performed will be reported separately. Delivery Sales Worker (topogram) images: No additional findings. DIVISION OF RADIOLOGY Provider, [facility] - 05/18/2023 * * *Final Report* * * DATE OF EXAM: May 18 2023 11:17AM [facility] 0530 - CT ABD/PEL W IVCON / [...] when it measured 4.9 x 3.4 cm. Delivery Sales Worker Mesentery/Peritoneum: Soft tissue implant anterior to the [...] chest CT performed will be reported separately. Delivery Sales Worker (topogram) images: No additional findings. IMPRESSION IMPRESSION: [...] any questions regarding this interpretation, please call [phone]. If you are unable to reach us at the number above, please feel free to contact [facility] eRadiology at [phone]. [facility] CT CHEST W IVCONon 3 CT CHEST W IVCON Normal [facility] CT Chest W contrast Kodi IMPRESSION: [...] any questions regarding this interpretation, please call [phone]. If you are unable to reach us at the number above, please feel free to contact [facility] eRadiology at [phone]. DIVISION OF RADIOLOGY * * *Final Report* * * DATE OF EXAM: May 18 2023 11:17AM [facility] 0539 - CT CHEST W IVCON / [...] was performed and will be reported separately. Delivery Sales Worker (topogram) images: No additional findings. DIVISION OF RADIOLOGY Provider, Angélica Charles [facility] - 05/18/2023 * * *Final Report* * * DATE OF EXAM: May 18 2023 11:17AM [facility] 0539 - CT CHEST W IVCON / [...] was performed and will be reported separately. Delivery Sales Worker (topogram) images: No additional findings. IMPRESSION IMPRESSION: [...] any questions regarding this interpretation, please call [phone]. If you are unable to reach us at the number above, please feel free to contact [facility] eRadiology at [phone]. [facility] CT Chest W contrast IVOrdere d By: Ccf Provider on 05-18-2023 [facility] Laboratory - Chemistry and C hemistry - challengeOrdered By: Elizabeth Yu on 05-18-2023 Creatinine [Mass/Vol] 0.80 mg/dL 0.73 - 1.22 mg/dL [facility] GFR/1.73 sq M.predicted among non-blacks MDRD (S/P/Bld) [Vol rate/Area] 94 mL/min/{1.73_m2} - PINF [facility] Comment on above: Estimated Glomerular [...] actual GFR. No Panel InformationOrdered By: Elizabeth uY on 05-18-2023 Interpretation and review of laboratory results Normal [facility] No Panel Informationon 05-18 Radiology Study observation (narrative) [facility] CBC W Auto Differential pane l (Bld)on 05-12-2023 Basophils (Bld) [#/Vol] 0.03 10*3/uL Normal <0.11 [facility] Comment on above: Order Comment: Speci men Type: BLOOD SPECIMENOrdering Facility: [facility] Address: [place] [address] Performed By: #### 5 7021-8 ####[facility] LABCLIA [id number] [place] [address] Basophils/100 WBC (Bld) 0.5 % Normal [facility] Comment on above: Order Comment: Speci men Type: BLOOD SPECIMENOrdering Facility: [facility] Address: [address] [place] [address] Performed By: #### 5 7021-8 ####[facility] LABCLIA [id number] [place] [address] Differential cell count method Nom (Bld) Auto Normal [facility] Comment on above: Order Comment: Speci men Type: BLOOD SPECIMENOrdering Facility: [facility] Address: [address] [place] [address] Performed By: #### 5 7021-8 ####[facility] LABCLIA [id number] [place] [address] Eosinophils (Bld) [#/Vol] 10*3/uL Normal <0.46 [facility] Comment on above: Order Comment: Speci men Type: BLOOD SPECIMENOrdering Facility: [facility] Address: [address] [place] [address] Performed By: #### 5 7021-8 ####[facility] LABCLIA [id number] [place] [address] Eosinophils/100 WBC (Bld) 0.4 % Normal [facility] Comment on above: Order Comment: Speci men Type: BLOOD SPECIMENOrdering Facility: [facility] Address: [address] [place] [address] Performed By: #### 5 7021-8 ####[facility] LABCLIA [id number] [place] [address] Erythrocyte distribution width (RBC) [Ratio] 17.2 % High 11.5-15.0 [facility] Comment on above: Order Comment: Speci men Type: BLOOD SPECIMENOrdering Facility: [facility] Address: [address] [place] [address] Performed By: #### 5 7021-8 ####[facility] LABCLIA [id number] [place] [address] Hematocrit (Bld) [Volume fraction] 29.8 % Low 39.0-51.0 [facility] Comment on above: Order Comment: Speci men Type: BLOOD SPECIMENOrdering Facility: [facility] Address: [address] [place] [address] Performed By: #### 5 7021-8 ####[facility] LABCLIA [id number] [place] [address] Hemoglobin (Bld) [Mass/Vol] 9.8 g/dL Low 13.0-17.0 [facility] Comment on above: Order Comment: Speci men Type: BLOOD SPECIMENOrdering Facility: [facility] Address: [address] [place] [address] Performed By: #### 5 7021-8 ####[facility] LABCLIA [id number] [place] [address] Immature granulocytes (Bld) [#/Vol] 10*3/uL Normal <0.10 [facility] Comment on above: Order Comment: Speci men Type: BLOOD SPECIMENOrdering Facility: [facility] Address: [address] [place] [address] Performed By: #### 5 7021-8 ####[facility] LABCLIA [id number] [place] [address] Immature granulocytes/100 WBC (Bld) 0.4 % Normal [facility] Comment on above: Order Comment: Speci men Type: BLOOD SPECIMENOrdering Facility: [facility] Address: [address] [place] [address] Performed By: #### 5 7021-8 ####[facility] LABCLIA [id number] [place] [address] Lymphocytes (Bld) [#/Vol] 1.83 10*3/uL Normal 1.00-4.00 [facility] Comment on above: Order Comment: Speci men Type: BLOOD SPECIMENOrdering Facility: [facility] Address: [address] [place] [address] Performed By: #### 5 7021-8 ####[facility] LABCLIA [id number] [place] [address] Lymphocytes/100 WBC (Bld) 33.0 % Normal [facility] Comment on above: Order Comment: Speci men Type: BLOOD SPECIMENOrdering Facility: [facility] Address: [address] [place] [address] Performed By: #### 5 7021-8 ####[facility] LABCLIA [id number] [place] [address] MCH (RBC) [Entitic mass] 31.5 pg Normal 26.0-34.0 [facility] Comment on above: Order Comment: Speci men Type: BLOOD SPECIMENOrdering Facility: [facility] Address: [address] [place] [address] Performed By: #### 5 7021-8 ####[facility] LABCLIA [id number] [place] [address] MCHC (RBC) [Mass/Vol] 32.9 g/dL Normal 30.5-36.0 [facility] Comment on above: Order Comment: Speci men Type: BLOOD SPECIMENOrdering Facility: [facility] Address: [address] [place] [address] Performed By: #### 5 7021-8 ####[facility] LABCLIA [id number] [place] [address] MCV (RBC) [Entitic vol] 95.8 fL Normal 80.0-100.0 [facility] Comment on above: Order Comment: Speci men Type: BLOOD SPECIMENOrdering Facility: [facility] Address: [address] [place] [address] Performed By: #### 5 7021-8 ####[facility] LABIA [id number] [place] [address] Monocytes (Bld) [#/Vol] 0.40 10*3/uL Normal <0.87 [facility] Comment on above: Order Comment: Speci men Type: BLOOD SPECIMENOrdering Facility: [facility] Address: [address] [place] [address] Performed By: #### 5 7021-8 ####[facility] LABCLIA [id number] [place] [address] Monocytes/100 WBC (Bld) 7.2 % Normal [facility] Comment on above: Order Comment: Speci men Type: BLOOD SPECIMENOrdering Facility: [facility] Address: [address] [place] [address] Performed By: #### 5 7021-8 ####[facility] LABCLIA [id number] [place] [address] Neutrophils (Bld) [#/Vol] 3.24 10*3/uL Normal 1.45-7.50 [facility] Comment on above: Order Comment: Speci men Type: BLOOD SPECIMENOrdering Facility: [facility] Address: [address] [place] [address] Performed By: #### 5 7021-8 ####[facility] LABCLIA [id number] [place] [address] Neutrophils/100 WBC (Bld) 58.5 % Normal [facility] Comment on above: Order Comment: Speci men Type: BLOOD SPECIMENOrdering Facility: [facility] Address: [address] [place] [address] Performed By: #### 5 7021-8 ####[facility] LABCLIA [id number] [place] [address] Nucleated RBC (Bld) [#/Vol] 10*3/uL Normal <0.01 [facility] Comment on above: Order Comment: Speci men Type: BLOOD SPECIMENOrdering Facility: [facility] Address: [address] [place] [address] Performed By: #### 5 7021-8 ####[facility] LABCLIA [id number] [place] [address] Nucleated RBC/100 WBC (Bld) [Ratio] 0.0 /100 WBC Normal [facility] Comment on above: Order Comment: Speci men Type: BLOOD SPECIMENOrdering Facility: [facility] Address: [address] [place] [address] Performed By: #### 5 7021-8 ####[facility] LABCLIA [id number] [place] [address] Platelet mean volume (Bld) [Entitic vol] 10.2 fL Normal 9.0-12.7 [facility] Comment on above: Order Comment: Speci men Type: BLOOD SPECIMENOrdering Facility: [facility] Address: [address] [place] [address] Performed By: #### 5 7021-8 ####[facility] LABCLIA [id number] [place] [address] Platelets (Bld) [#/Vol] 186 10*3/uL Normal 150-400 [facility] Comment on above: Order Comment: Speci men Type: BLOOD SPECIMENOrdering Facility: [facility] Address: [address] [place] [address] Performed By: #### 5 7021-8 ####[facility] LABIA [id number] [place] [address] RBC (Bld) [#/Vol] 3.11 10*6/uL Low 4.20-6.00 [facility] Comment on above: Order Comment: Speci men Type: BLOOD SPECIMENOrdering Facility: [facility] Address: [address] [place] [address] Performed By: #### 5 7021-8 ####[facility] LABCLIA [id number] [place] [address] WBC (Bld) [#/Vol] 5.54 10*3/uL Normal 3.70-11.00 [facility] Comment on above: Order Comment: Speci men Type: BLOOD SPECIMENOrdering Facility: [facility] Address: [address] [place] [address] Performed By: #### 5 7021-8 ####[facility] LABCLIA [id number] [place] [address] CNOVSPon 05-12-2023 CNOVSP Normal [facility] metabolic 2000 panelon 05-12-2023 Albumin [Mass/Vol] 4.1 g/dL Normal 3.9-4.9 [facility] Comment on above: Order Comment: Speci men Type: BLOOD SPECIMENOrdering Facility: [facility] Address: [address] [place] [address] Performed By: #### 2 4323-8 ####[facility] LABCLIA [id number] [place] [address] ALP [Catalytic activity/Vol] 116 U/L High 38-113 [facility] Comment on above: Order Comment: Speci men Type: BLOOD SPECIMENOrdering Facility: [facility] Address: [address] [place] [address] Performed By: #### 2 4323-8 ####[facility] LABCLIA [id number] [place] [address] ALT [Catalytic activity/Vol] 32 U/L Normal 10-54 [facility] Comment on above: Order Comment: Speci men Type: BLOOD SPECIMENOrdering Facility: [facility] Address: [address] [place] [address] Performed By: #### 2 4323-8 ####[facility] LABCLIA [id number] [place] [address] Anion gap [Moles/Vol] 8 mmol/L Low 9-18 [facility] Comment on above: Order Comment: Speci men Type: BLOOD SPECIMENOrdering Facility: [facility] Address: [address] [place] [address] Performed By: #### 2 4323-8 ####[facility] LABCLIA [id number] [place] [address] AST [Catalytic activity/Vol] 24 U/L Normal 14-40 [facility] Comment on above: Order Comment: Speci men Type: BLOOD SPECIMENOrdering Facility: [facility] Address: [address] [place] [address] Performed By: #### 2 4323-8 ####[facility] LABCLIA [id number] [place] [address] Bilirubin [Mass/Vol] 1.2 mg/dL Normal 0.2-1.3 [facility] Comment on above: Order Comment: Speci men Type: BLOOD SPECIMENOrdering Facility: [facility] Address: [address] [place] [address] Performed By: #### 2 4323-8 ####[facility] LABCLIA [id number] [place] [address] Calcium [Mass/Vol] 10.9 mg/dL High 8.5-10.2 [facility] Comment on above: Order Comment: Speci men Type: BLOOD SPECIMENOrdering Facility: [facility] Address: [address] [place] [address] Performed By: #### 2 4323-8 ####[facility] LABCLIA [id number] [place] [address] Chloride [Moles/Vol] 104 mmol/L Normal 97-105 [facility] Comment on above: Order Comment: Speci men Type: BLOOD SPECIMENOrdering Facility: [facility] Address: [address] [place] [address] Performed By: #### 2 4323-8 ####[facility] LABCLIA [id number] [place] [address] CO2 [Moles/Vol] 26 mmol/L Normal 22-30 [facility] Comment on above: Order Comment: Speci men Type: BLOOD SPECIMENOrdering Facility: [facility] Address: [address] [place] [address] Performed By: #### 2 4323-8 ####[facility] LABCLIA [id number] [place] [address] Creatinine [Mass/Vol] 0.75 mg/dL Normal 0.73-1.22 [facility] Comment on above: Order Comment: Noemí hoff Type: BLOOD SPECIMENOrdering Facility: [facility] Address: [address] [place] [address] Performed By: #### 2 4323-8 ####[facility] LABCLIA [id number] [place] [address] Creatinine and Glomerular filtration rate.predicted panel (S/P/Bld) 96 mL/min/1.73m??? Normal >=60 [facility] Comment on above: Order Comment: Noemí hoff Type: BLOOD SPECIMENOrdering Facility: [facility] Address: [address] [place] [address] Result Comment: Kathy mated Glomerular Filtration Rate [...] actual GFR. Performed By: #### 2 4323-8 ####[facility] LABCLIA [id number] [place] [address] Glucose [Mass/Vol] 152 mg/dL High 74-99 [facility] Comment on above: Order Comment: Noemí hoff Type: BLOOD SPECIMENOrdering Facility: [facility] Address: [address] [place] [address] Result Comment: The [place] [employer] (ADA) provides guidance for cutoff [...] Standards of Medical Care in Diabetes 2016, [place] [employer]. Diabetes Care. 2016.39(Suppl 1). Performed By: #### 2 4323-8 ####[facility] LABCLIA [id number] [place] [address] Potassium [Moles/Vol] 4.1 mmol/L Normal 3.7-5.1 [facility] Comment on above: Order Comment: Speci men Type: BLOOD SPECIMENOrdering Facility: [facility] Address: [address] [place] [address] Performed By: #### 2 4323-8 ####[facility] LABCLIA [id number] [place] [address] Protein [Mass/Vol] 7.1 g/dL Normal 6.3-8.0 [facility] Comment on above: Order Comment: Speci men Type: BLOOD SPECIMENOrdering Facility: [facility] Address: [address] [place] [address] Performed By: #### 2 4323-8 ####[facility] LABCLIA [id number] [place] [address] Sodium [Moles/Vol] 138 mmol/L Normal 136-144 [facility] Comment on above: Order Comment: Speci men Type: BLOOD SPECIMENOrdering Facility: [facility] Address: [address] [place] [address] Performed By: #### 2 4323-8 ####[facility] LABCLIA [id number] [place] [address] Urea nitrogen [Mass/Vol] 16 mg/dL Normal 9-24 [facility] Comment on above: Order Comment: Speci men Type: BLOOD SPECIMENOrdering Facility: [facility] Address: [address] [place] [address] Performed By: #### 2 4323-8 ####[facility] LABCLIA [id number] [place] [address] CNPNon 05-08-2023 CNPN Normal [facility] CBC W Auto Differential pane l (Bld)on 05-05-2023 Basophils (Bld) [#/Vol] 0.05 10*3/uL <0.11 k/uL [facility] Basophils/100 WBC (Bld) 0.3 % [facility] Differential cell count method Nom (Bld) Auto [facility] Eosinophils (Bld) [#/Vol] 0.04 10*3/uL <0.46 k/uL [facility] Eosinophils/100 WBC (Bld) 0.3 % [facility] Erythrocyte distribution width (RBC) [Ratio] 17.2 % High 11.5 - 15.0 % [facility] Hematocrit (Bld) [Volume fraction] 36.8 % Low 39.0 - 51.0 % [facility] Hemoglobin (Bld) [Mass/Vol] 12.0 g/dL Low 13.0 - 17.0 g/dL [facility] Immature granulocytes (Bld) [#/Vol] 0.07 10*3/uL <0.10 k/uL [facility] Immature granulocytes/100 WBC (Bld) 0.5 % [facility] Lymphocytes (Bld) [#/Vol] 2.10 10*3/uL 1.00 - 4.00 k/uL [facility] Lymphocytes/100 WBC (Bld) 14.4 % [facility] MCH (RBC) [Entitic mass] 31.4 pg 26.0 - 34.0 pg [facility] MCHC (RBC) [Mass/Vol] 32.6 g/dL 30.5 - 36.0 g/dL [facility] MCV (RBC) [Entitic vol] 96.3 fL 80.0 - 100.0 fL [facility] Monocytes (Bld) [#/Vol] 1.12 10*3/uL High <0.87 k/uL [facility] Monocytes/100 WBC (Bld) 7.7 % [facility] Neutrophils (Bld) [#/Vol] 11.22 10*3/uL High 1.45 - 7.50 k/uL [facility] Neutrophils/100 WBC (Bld) 76.8 % [facility] Nucleated RBC (Bld) [#/Vol] <0.01 k/uL [facility] Nucleated RBC/100 WBC (Bld) [Ratio] 0.0 /100 WBC [facility] Platelet mean volume (Bld) [Entitic vol] 10.2 fL 9.0 - 12.7 fL [facility] Platelets (Bld) [#/Vol] 376 10*3/uL 150 - 400 k/uL [facility] RBC (Bld) [#/Vol] 3.82 10*6/uL Low 4.20 - 6.0 0 m/uL [facility] WBC (Bld) [#/Vol] 14.60 10*3/uL High 3.70 - 11.00 k/uL [facility] Basophils (Bld) [#/Vol] 0.05 10*3/uL Normal <0.11 [facility] Comment on above: Order Comment: Speci men Type: BLOOD SPECIMENOrdering Facility: [facility] Address: [address] [place] [address] Performed By: #### 5 7021-8 ####[facility] LABCLIA [id number] [place] [address] Basophils/100 WBC (Bld) 0.3 % Normal [facility] Comment on above: Order Comment: Speci men Type: BLOOD SPECIMENOrdering Facility: [facility] Address: [address] [place] [address] Performed By: #### 5 7021-8 ####[facility] LABCLIA [id number] [place] [address] Differential cell count method Nom (Bld) Auto Normal [facility] Comment on above: Order Comment: Speci men Type: BLOOD SPECIMENOrdering Facility: [facility] Address: [address] [place] [address] Performed By: #### 5 7021-8 ####[facility] LABCLIA [id number] [place] [address] Eosinophils (Bld) [#/Vol] 0.04 10*3/uL Normal <0.46 [facility] Comment on above: Order Comment: Speci men Type: BLOOD SPECIMENOrdering Facility: [facility] Address: [address] [place] [address] Performed By: #### 5 7021-8 ####[facility] LABCLIA [id number] [place] [address] Eosinophils/100 WBC (Bld) 0.3 % Normal [facility] Comment on above: Order Comment: Speci men Type: BLOOD SPECIMENOrdering Facility: [facility] Address: [address] [place] [address] Performed By: #### 5 7021-8 ####[facility] LABCLIA [id number] [place] [address] Erythrocyte distribution width (RBC) [Ratio] 17.2 % High 11.5-15.0 [facility] Comment on above: Order Comment: Speci men Type: BLOOD SPECIMENOrdering Facility: [facility] Address: [address] [place] [address] Performed By: #### 5 7021-8 ####[facility] LABCLIA [id number] [place] [address] Hematocrit (Bld) [Volume fraction] 36.8 % Low 39.0-51.0 [facility] Comment on above: Order Comment: Speci men Type: BLOOD SPECIMENOrdering Facility: [facility] Address: [address] [place] [address] Performed By: #### 5 7021-8 ####[facility] LABCLIA [id number] [place] [address] Hemoglobin (Bld) [Mass/Vol] 12.0 g/dL Low 13.0-17.0 [facility] Comment on above: Order Comment: Speci men Type: BLOOD SPECIMENOrdering Facility: [facility] Address: [address] [place] [address] Performed By: #### 5 7021-8 ####[facility] LABCLIA [id number] [place] [address] Immature granulocytes (Bld) [#/Vol] 0.07 10*3/uL Normal <0.10 [facility] Comment on above: Order Comment: Speci men Type: BLOOD SPECIMENOrdering Facility: [facility] Address: [address] [place] [address] Performed By: #### 5 7021-8 ####[facility] LABCLIA [id number] [place] [address] Immature granulocytes/100 WBC (Bld) 0.5 % Normal [facility] Comment on above: Order Comment: Speci men Type: BLOOD SPECIMENOrdering Facility: [facility] Address: [address] [place] [address] Performed By: #### 5 7021-8 ####[facility] LABCLIA [id number] [place] [address] Lymphocytes (Bld) [#/Vol] 2.10 10*3/uL Normal 1.00-4.00 [facility] Comment on above: Order Comment: Speci men Type: BLOOD SPECIMENOrdering Facility: [facility] Address: [address] [place] [address] Performed By: #### 5 7021-8 ####[facility] LABCLIA [id number] [place] [address] Lymphocytes/100 WBC (Bld) 14.4 % Normal [facility] Comment on above: Order Comment: Speci men Type: BLOOD SPECIMENOrdering Facility: [facility] Address: [address] [place] [address] Performed By: #### 5 7021-8 ####[facility] LABCLIA [id number] [place] [address] MCH (RBC) [Entitic mass] 31.4 pg Normal 26.0-34.0 [facility] Comment on above: Order Comment: Speci men Type: BLOOD SPECIMENOrdering Facility: [facility] Address: [address] [place] [address] Performed By: #### 5 7021-8 ####[facility] LABCLIA [id number] [place] [address] MCHC (RBC) [Mass/Vol] 32.6 g/dL Normal 30.5-36.0 [facility] Comment on above: Order Comment: Speci men Type: BLOOD SPECIMENOrdering Facility: [facility] Address: [address] [place] [address] Performed By: #### 5 7021-8 ####[facility] LABCLIA [id number] [place] [address] MCV (RBC) [Entitic vol] 96.3 fL Normal 80.0-100.0 [facility] Comment on above: Order Comment: Speci men Type: BLOOD SPECIMENOrdering Facility: [facility] Address: [address] [place] [address] Performed By: #### 5 7021-8 ####[facility] LABCLIA [id number] [place] [address] Monocytes (Bld) [#/Vol] 1.12 10*3/uL High <0.87 [facility] Comment on above: Order Comment: Speci men Type: BLOOD SPECIMENOrdering Facility: [facility] Address: [address] [place] [address] Performed By: #### 5 7021-8 ####[facility] LABCLIA [id number] [place] [address] Monocytes/100 WBC (Bld) 7.7 % Normal [facility] Comment on above: Order Comment: Speci men Type: BLOOD SPECIMENOrdering Facility: [facility] Address: [address] [place] [address] Performed By: #### 5 7021-8 ####[facility] LABCLIA [id number] [place] [address] Neutrophils (Bld) [#/Vol] 11.22 10*3/uL High 1.45-7.50 [facility] Comment on above: Order Comment: Speci men Type: BLOOD SPECIMENOrdering Facility: [facility] Address: [address] [place] [address] Performed By: #### 5 7021-8 ####[facility] LABCLIA [id number] [place] [address] Neutrophils/100 WBC (Bld) 76.8 % Normal [facility] Comment on above: Order Comment: Speci men Type: BLOOD SPECIMENOrdering Facility: [facility] Address: [address] [place] [address] Performed By: #### 5 7021-8 ####[facility] LABCLIA [id number] [place] [address] Nucleated RBC (Bld) [#/Vol] 10*3/uL Normal <0.01 [facility] Comment on above: Order Comment: Speci men Type: BLOOD SPECIMENOrdering Facility: [facility] Address: [address] [place] [address] Performed By: #### 5 7021-8 ####[facility] LABCLIA [id number] [place] [address] Nucleated RBC/100 WBC (Bld) [Ratio] 0.0 /100 WBC Normal [facility] Comment on above: Order Comment: Speci men Type: BLOOD SPECIMENOrdering Facility: [facility] Address: [address] [place] [address] Performed By: #### 5 7021-8 ####[facility] LABCLIA [id number] [place] [address] Platelet mean volume (Bld) [Entitic vol] 10.2 fL Normal 9.0-12.7 [facility] Comment on above: Order Comment: Speci men Type: BLOOD SPECIMENOrdering Facility: [facility] Address: [address] [place] [address] Performed By: #### 5 7021-8 ####[facility] LABCLIA [id number] [place] [address] Platelets (Bld) [#/Vol] 376 10*3/uL Normal 150-400 [facility] Comment on above: Order Comment: Speci men Type: BLOOD SPECIMENOrdering Facility: [facility] Address: [address] [place] [address] Performed By: #### 5 7021-8 ####[facility] LABCLIA [id number] [place] [address] RBC (Bld) [#/Vol] 3.82 10*6/uL Low 4.20-6.00 [facility] Comment on above: Order Comment: Speci men Type: BLOOD SPECIMENOrdering Facility: [facility] Address: [address] [place] [address] Performed By: #### 5 7021-8 ####[facility] LABIA [id number] [place] [address] WBC (Bld) [#/Vol] 14.60 10*3/uL High 3.70-11.00 [facility] Comment on above: Order Comment: Speci men Type: BLOOD SPECIMENOrdering Facility: [facility] Address: [address] [place] [address] Performed By: #### 5 7021-8 ####[facility] LABIA [id number] [place] [address] CNOVSPon 05-05-2023 CNOVSP Normal [facility] Cancer Ag19-9 SerPl-aCncon 1 07-06-2022 Cancer Ag 19-9 Qn 2059.0 [arb'U]/mL High <36.0 [facility] Comment on above: Order Comment: Speci men Type: BLOOD SPECIMENOrdering Facility: [facility] Address: [address] [place] [address] Result Comment: [facility] er antigen 19-9 test is used as an aid in monitoring response to treatment or recurrence in patients with established pancreatic, hepatobiliary, or gastrointestinal malignancies. Clinical correlation is required.The CA 19-9 Antigen test was performed using the [employer] DXI paramagnetic particle chemiluminescent immunoassay method. Results obtained with different assay methods or kits cannot be used interchangeably. Performed By: #### 2 4108-3 ####[facility] LABCLIA [id number] [place] [address] [place] Comprehensive metabolic 2000 panelon 05-05-2023 Albumin [Mass/Vol] 4.3 g/dL 3.9 - 4.9 g/dL [facility] ALP [Catalytic activity/Vol] 131 U/L High 38 - 113 U/L [facility] ALT [Catalytic activity/Vol] 26 U/L 10 - 54 U/L [facility] Anion gap [Moles/Vol] 10 mmol/L 9 - 18 mmol/L [facility] AST [Catalytic activity/Vol] 28 U/L 14 - 40 U/L [facility] Bilirubin [Mass/Vol] 1.3 mg/dL 0.2 - 1 .3 mg/dL [facility] Calcium [Mass/Vol] 11.1 mg/dL High 8.5 - 10. 2 mg/dL [facility] Chloride [Moles/Vol] 101 mmol/L 97 - 10 5 mmol/L [facility] CO2 [Moles/Vol] 24 mmol/L 22 - 30 mmol/L [facility] Creatinine [Mass/Vol] 0.87 mg/dL 0.73 - 1.22 mg/dL [facility] Estimated Glomerular Filtration Rate 92 mL/min/1.73m >=60 mL/min/1.73 m [facility] Glucose [Mass/Vol] 154 mg/dL High 74 - 99 mg/dL [facility] Potassium [Moles/Vol] 4.3 mmol/L 3.7 - 5.1 mmol/L [facility] Protein [Mass/Vol] 7.5 g/dL 6.3 - 8.0 g/dL [facility] Sodium [Moles/Vol] 135 mmol/L Low 136 - 144 mmol/L [facility] Urea nitrogen [Mass/Vol] 19 mg/dL 9 - 24 mg/dL [facility] Albumin [Mass/Vol] 4.3 g/dL Normal 3.9-4.9 [facility] Comment on above: Order Comment: Speci men Type: BLOOD SPECIMENOrdering Facility: [facility] Address: [address] [place] [address] Performed By: #### 2 4323-8 ####[facility] LABCLIA [id number] [place] [address] ALP [Catalytic activity/Vol] 131 U/L High 38-113 [facility] Comment on above: Order Comment: Speci men Type: BLOOD SPECIMENOrdering Facility: [facility] Address: [address] [place] [address] Performed By: #### 2 4323-8 ####[facility] LABCLIA [id number] [place] [address] ALT [Catalytic activity/Vol] 26 U/L Normal 10-54 [facility] Comment on above: Order Comment: Speci men Type: BLOOD SPECIMENOrdering Facility: [facility] Address: [address] [place] [address] Performed By: #### 2 4323-8 ####[facility] LABCLIA [id number] [place] [address] Anion gap [Moles/Vol] 10 mmol/L Normal 9-18 [facility] Comment on above: Order Comment: Speci men Type: BLOOD SPECIMENOrdering Facility: [facility] Address: [address] [place] [address] Performed By: #### 2 4323-8 ####[facility] LABCLIA [id number] [place] [address] AST [Catalytic activity/Vol] 28 U/L Normal 14-40 [facility] Comment on above: Order Comment: Speci men Type: BLOOD SPECIMENOrdering Facility: [facility] Address: [address] [place] [address] Performed By: #### 2 4323-8 ####[facility] LABCLIA [id number] [place] [address] Bilirubin [Mass/Vol] 1.3 mg/dL Normal 0.2-1.3 [facility] Comment on above: Order Comment: Speci men Type: BLOOD SPECIMENOrdering Facility: [facility] Address: [address] [place] [address] Performed By: #### 2 4323-8 ####[facility] LABCLIA [id number] [place] [address] Calcium [Mass/Vol] 11.1 mg/dL High 8.5-10.2 [facility] Comment on above: Order Comment: Speci men Type: BLOOD SPECIMENOrdering Facility: [facility] Address: [address] [place] [address] Performed By: #### 2 4323-8 ####[facility] LABCLIA [id number] [place] [address] Chloride [Moles/Vol] 101 mmol/L Normal 97-105 [facility] Comment on above: Order Comment: Speci men Type: BLOOD SPECIMENOrdering Facility: [facility] Address: [address] [place] [address] Performed By: #### 2 4323-8 ####[facility] LABCLIA [id number] [place] [address] CO2 [Moles/Vol] 24 mmol/L Normal 22-30 [facility] Comment on above: Order Comment: Speci men Type: BLOOD SPECIMENOrdering Facility: [facility] Address: [address] [place] [address] Performed By: #### 2 4323-8 ####[facility] LABCLIA [id number] [place] [address] Creatinine [Mass/Vol] 0.87 mg/dL Normal 0.73-1.22 [facility] Comment on above: Order Comment: Speci men Type: BLOOD SPECIMENOrdering Facility: [facility] Address: [address] [place] [address] Performed By: #### 2 4323-8 ####[facility] LABCLIA [id number] [place] [address] Creatinine and Glomerular filtration rate.predicted panel (S/P/Bld) 92 mL/min/1.73m??? Normal >=60 [facility] Comment on above: Order Comment: Speci men Type: BLOOD SPECIMENOrdering Facility: [facility] Address: [address] [place] [address] Result Comment: Kathy mated Glomerular Filtration Rate [...] actual GFR. Performed By: #### 2 4323-8 ####[facility] LABCLIA [id number] [place] [address] Glucose [Mass/Vol] 154 mg/dL High 74-99 [facility] Comment on above: Order Comment: Noemí hoff Type: BLOOD SPECIMENOrdering Facility: [facility] Address: [address] [place] [address] Result Comment: The [place] [employer] (ADA) provides guidance for cutoff [...] Standards of Medical Care in Diabetes 2016, [place] [employer]. Diabetes Care. 2016.39(Suppl 1). Performed By: #### 2 4323-8 ####[facility] LABCLIA [id number] [place] [address] Potassium [Moles/Vol] 4.3 mmol/L Normal 3.7-5.1 [facility] Comment on above: Order Comment: Noemí hoff Type: BLOOD SPECIMENOrdering Facility: [facility] Address: [address] [place] [address] Performed By: #### 2 4323-8 ####[facility] LABCLIA [id number] [place] [address] Protein [Mass/Vol] 7.5 g/dL Normal 6.3-8.0 [facility] Comment on above: Order Comment: Speci men Type: BLOOD SPECIMENOrdering Facility: [facility] Address: [address] [place] [address] Performed By: #### 2 4323-8 ####[facility] LABCLIA [id number] [place] [address] Sodium [Moles/Vol] 135 mmol/L Low 136-144 [facility] Comment on above: Order Comment: Speci men Type: BLOOD SPECIMENOrdering Facility: [facility] Address: [address] [place] [address] Performed By: #### 2 4323-8 ####[facility] LABCLIA [id number] [place] [address] Urea nitrogen [Mass/Vol] 19 mg/dL Normal 9-24 [facility] Comment on above: Order Comment: Speci men Type: BLOOD SPECIMENOrdering Facility: [facility] Address: [address] [place] [address] Performed By: #### 2 4323-8 ####[facility] LABCLIA [id number] [place] [address] CNPNon 2023 CNPN Normal [facility] CBC W Auto Differential pane l (Bld)on 04-05-2023 Basophils (Bld) [#/Vol] 0.05 10*3/uL <0.11 k/uL [facility] Basophils/100 WBC (Bld) 0.5 % [facility] Differential cell count method Nom (Bld) Auto [facility] Eosinophils (Bld) [#/Vol] <0.46 k/uL [facility] Eosinophils/100 WBC (Bld) 0.2 % [facility] Erythrocyte distribution width (RBC) [Ratio] 15.3 % High 11.5 - 15.0 % [facility] Hematocrit (Bld) [Volume fraction] 30.3 % Low 39.0 - 51.0 % [facility] Hemoglobin (Bld) [Mass/Vol] 10.0 g/dL Low 13.0 - 17.0 g/dL [facility] Immature granulocytes (Bld) [#/Vol] 0.04 10*3/uL <0.10 k/uL [facility] Immature granulocytes/100 WBC (Bld) 0.4 % [facility] Lymphocytes (Bld) [#/Vol] 1.63 10*3/uL 1.00 - 4.00 k/uL [facility] Lymphocytes/100 WBC (Bld) 15.5 % [facility] MCH (RBC) [Entitic mass] 32.3 pg 26.0 - 34.0 pg [facility] MCHC (RBC) [Mass/Vol] 33.0 g/dL 30.5 - 36.0 g/dL [facility] MCV (RBC) [Entitic vol] 97.7 fL 80.0 - 100.0 fL [facility] Monocytes (Bld) [#/Vol] 0.21 10*3/uL <0.87 k/uL [facility] Monocytes/100 WBC (Bld) 2.0 % [facility] Neutrophils (Bld) [#/Vol] 8.60 10*3/uL High 1.45 - 7.50 k/uL [facility] Neutrophils/100 WBC (Bld) 81.4 % [facility] Nucleated RBC (Bld) [#/Vol] <0.01 k/uL [facility] Nucleated RBC/100 WBC (Bld) [Ratio] 0.0 /100 WBC [facility] Platelet mean volume (Bld) [Entitic vol] 9.7 fL 9.0 - 12.7 fL [facility] Platelets (Bld) [#/Vol] 271 10*3/uL 150 - 400 k/uL [facility] RBC (Bld) [#/Vol] 3.10 10*6/uL Low 4.20 - 6.0 0 m/uL [facility] WBC (Bld) [#/Vol] 10.55 10*3/uL 3.70 - 11.00 k/uL [facility] Comprehensive metabolic 2000 panelon 04-05-2023 Albumin [Mass/Vol] 4.2 g/dL 3.9 - 4.9 g/dL [facility] ALP [Catalytic activity/Vol] 112 U/L 38 - 113 U/L [facility] ALT [Catalytic activity/Vol] 18 U/L 10 - 54 U/L [facility] Anion gap [Moles/Vol] 8 mmol/L Low 9 - 18 mmol/L [facility] AST [Catalytic activity/Vol] 21 U/L 14 - 40 U/L [facility] Bilirubin [Mass/Vol] 1.2 mg/dL 0.2 - 1 .3 mg/dL [facility] Calcium [Mass/Vol] 10.9 mg/dL High 8.5 - 10. 2 mg/dL [facility] Chloride [Moles/Vol] 101 mmol/L 97 - 10 5 mmol/L [facility] CO2 [Moles/Vol] 25 mmol/L 22 - 30 mmol/L [facility] Creatinine [Mass/Vol] 0.79 mg/dL 0.73 - 1.22 mg/dL [facility] Estimated Glomerular Filtration Rate 95 mL/min/1.73m >=60 mL/min/1.73 m [facility] Glucose [Mass/Vol] 122 mg/dL High 74 - 99 mg/dL [facility] Potassium [Moles/Vol] 4.1 mmol/L 3.7 - 5.1 mmol/L [facility] Protein [Mass/Vol] 7.1 g/dL 6.3 - 8.0 g/dL [facility] Sodium [Moles/Vol] 134 mmol/L Low 136 - 144 mmol/L [facility] Urea nitrogen [Mass/Vol] 21 mg/dL 9 - 24 mg/dL [facility] CBC W Auto Differential pane l (Bld)on 03-08-2023 Basophils (Bld) [#/Vol] 0.04 10*3/uL <0.11 k/uL [facility] Basophils/100 WBC (Bld) 0.9 % [facility] Differential cell count method Nom (Bld) Auto [facility] Eosinophils (Bld) [#/Vol] <0.46 k/uL [facility] Eosinophils/100 WBC (Bld) 0.2 % [facility] Erythrocyte distribution width (RBC) [Ratio] 14.8 % 11.5 - 15.0 % [facility] Hematocrit (Bld) [Volume fraction] 31.4 % Low 39.0 - 51.0 % [facility] Hemoglobin (Bld) [Mass/Vol] 10.2 g/dL Low 13.0 - 17.0 g/dL [facility] Immature granulocytes (Bld) [#/Vol] 0.05 10*3/uL <0.10 k/uL [facility] Immature granulocytes/100 WBC (Bld) 1.1 % [facility] Lymphocytes (Bld) [#/Vol] 1.26 10*3/uL 1.00 - 4.00 k/uL [facility] Lymphocytes/100 WBC (Bld) 28.8 % [facility] MCH (RBC) [Entitic mass] 32.4 pg 26.0 - 34.0 pg [facility] MCHC (RBC) [Mass/Vol] 32.5 g/dL 30.5 - 36.0 g/dL [facility] MCV (RBC) [Entitic vol] 99.7 fL 80.0 - 100.0 fL [facility] Monocytes (Bld) [#/Vol] 0.29 10*3/uL <0.87 k/uL [facility] Monocytes/100 WBC (Bld) 6.6 % [facility] Neutrophils (Bld) [#/Vol] 2.72 10*3/uL 1.45 - 7.50 k/uL [facility] Neutrophils/100 WBC (Bld) 62.4 % [facility] Nucleated RBC (Bld) [#/Vol] <0.01 k/uL [facility] Nucleated RBC/100 WBC (Bld) [Ratio] 0.0 /100 WBC [facility] Platelet mean volume (Bld) [Entitic vol] 9.9 fL 9.0 - 12.7 fL [facility] Platelets (Bld) [#/Vol] 236 10*3/uL 150 - 400 k/uL [facility] RBC (Bld) [#/Vol] 3.15 10*6/uL Low 4.20 - 6.0 0 m/uL [facility] WBC (Bld) [#/Vol] 4.37 10*3/uL 3.70 - 11.00 k/uL [facility] Comprehensive metabolic 2000 panelon 03-08-2023 Albumin [Mass/Vol] 4.2 g/dL 3.9 - 4.9 g/dL [facility] ALP [Catalytic activity/Vol] 128 U/L High 38 - 113 U/L [facility] ALT [Catalytic activity/Vol] 32 U/L 10 - 54 U/L [facility] Anion gap [Moles/Vol] 8 mmol/L Low 9 - 18 mmol/L [facility] AST [Catalytic activity/Vol] 26 U/L 14 - 40 U/L [facility] Bilirubin [Mass/Vol] 1.2 mg/dL 0.2 - 1 .3 mg/dL [facility] Calcium [Mass/Vol] 10.8 mg/dL High 8.5 - 10. 2 mg/dL [facility] Chloride [Moles/Vol] 103 mmol/L 97 - 10 5 mmol/L [facility] CO2 [Moles/Vol] 25 mmol/L 22 - 30 mmol/L [facility] Creatinine [Mass/Vol] 0.94 mg/dL 0.73 - 1.22 mg/dL [facility] Estimated Glomerular Filtration Rate 87 mL/min/1.73m >=60 mL/min/1.73 m [facility] Glucose [Mass/Vol] 138 mg/dL High 74 - 99 mg/dL [facility] Potassium [Moles/Vol] 4.2 mmol/L 3.7 - 5.1 mmol/L [facility] Protein [Mass/Vol] 7.0 g/dL 6.3 - 8.0 g/dL [facility] Sodium [Moles/Vol] 136 mmol/L 136 - 144 mmol/L [facility] Urea nitrogen [Mass/Vol] 15 mg/dL 9 - 24 mg/dL [facility] CBC W Auto Differential pane l (Bld)on 03-01-2023 Basophils (Bld) [#/Vol] 0.04 10*3/uL <0.11 k/uL [facility] Basophils/100 WBC (Bld) 0.5 % [facility] Differential cell count method Nom (Bld) Auto [facility] Eosinophils (Bld) [#/Vol] <0.46 k/uL [facility] Eosinophils/100 WBC (Bld) 0.2 % [facility] Erythrocyte distribution width (RBC) [Ratio] 15.6 % High 11.5 - 15.0 % [facility] Hematocrit (Bld) [Volume fraction] 37.3 % Low 39.0 - 51.0 % [facility] Hemoglobin (Bld) [Mass/Vol] 11.9 g/dL Low 13.0 - 17.0 g/dL [facility] Immature granulocytes (Bld) [#/Vol] 0.07 10*3/uL <0.10 k/uL [facility] Immature granulocytes/100 WBC (Bld) 0.9 % [facility] Lymphocytes (Bld) [#/Vol] 1.45 10*3/uL 1.00 - 4.00 k/uL [facility] Lymphocytes/100 WBC (Bld) 17.9 % [facility] MCH (RBC) [Entitic mass] 32.4 pg 26.0 - 34.0 pg [facility] MCHC (RBC) [Mass/Vol] 31.9 g/dL 30.5 - 36.0 g/dL [facility] MCV (RBC) [Entitic vol] 101.6 fL High 80.0 - 100.0 fL [facility] Monocytes (Bld) [#/Vol] 0.94 10*3/uL High <0.87 k/uL [facility] Monocytes/100 WBC (Bld) 11.6 % [facility] Neutrophils (Bld) [#/Vol] 5.58 10*3/uL 1.45 - 7.50 k/uL [facility] Neutrophils/100 WBC (Bld) 68.9 % [facility] Nucleated RBC (Bld) [#/Vol] <0.01 k/uL [facility] Nucleated RBC/100 WBC (Bld) [Ratio] 0.0 /100 WBC [facility] Platelet mean volume (Bld) [Entitic vol] 9.2 fL 9.0 - 12.7 fL [facility] Platelets (Bld) [#/Vol] 449 10*3/uL High 150 - 400 k/uL [facility] RBC (Bld) [#/Vol] 3.67 10*6/uL Low 4.20 - 6.0 0 m/uL [facility] WBC (Bld) [#/Vol] 8.10 10*3/uL 3.70 - 11.00 k/uL [facility] CBC W Auto Differential pane l (Bld)on 02-01-2023 Basophils (Bld) [#/Vol] <0.11 k/uL [facility] Basophils/100 WBC (Bld) 0.2 % [facility] Differential cell count method Nom (Bld) Auto [facility] Eosinophils (Bld) [#/Vol] <0.46 k/uL [facility] Eosinophils/100 WBC (Bld) 0.2 % [facility] Erythrocyte distribution width (RBC) [Ratio] 14.3 % 11.5 - 15.0 % [facility] Hematocrit (Bld) [Volume fraction] 35.3 % Low 39.0 - 51.0 % [facility] Hemoglobin (Bld) [Mass/Vol] 11.7 g/dL Low 13.0 - 17.0 g/dL [facility] Immature granulocytes (Bld) [#/Vol] 0.05 10*3/uL <0.10 k/uL [facility] Immature granulocytes/100 WBC (Bld) 0.4 % [facility] Lymphocytes (Bld) [#/Vol] 1.68 10*3/uL 1.00 - 4.00 k/uL [facility] Lymphocytes/100 WBC (Bld) 14.6 % [facility] MCH (RBC) [Entitic mass] 32.4 pg 26.0 - 34.0 pg [facility] MCHC (RBC) [Mass/Vol] 33.1 g/dL 30.5 - 36.0 g/dL [facility] MCV (RBC) [Entitic vol] 97.8 fL 80.0 - 100.0 fL [facility] Monocytes (Bld) [#/Vol] 0.70 10*3/uL <0.87 k/uL [facility] Monocytes/100 WBC (Bld) 6.1 % [facility] Neutrophils (Bld) [#/Vol] 9.04 10*3/uL High 1.45 - 7.50 k/uL [facility] Neutrophils/100 WBC (Bld) 78.5 % [facility] Nucleated RBC (Bld) [#/Vol] <0.01 k/uL [facility] Nucleated RBC/100 WBC (Bld) [Ratio] 0.0 /100 WBC [facility] Platelet mean volume (Bld) [Entitic vol] 10.1 fL 9.0 - 12.7 fL [facility] Platelets (Bld) [#/Vol] 267 10*3/uL 150 - 400 k/uL [facility] RBC (Bld) [#/Vol] 3.61 10*6/uL Low 4.20 - 6.0 0 m/uL [facility] WBC (Bld) [#/Vol] 11.51 10*3/uL High 3.70 - 11.00 k/uL [facility] Comprehensive metabolic 2000 panelon 02-01-2023 Albumin [Mass/Vol] 4.2 g/dL 3.9 - 4.9 g/dL [facility] ALP [Catalytic activity/Vol] 139 U/L High 38 - 113 U/L [facility] ALT [Catalytic activity/Vol] 23 U/L 10 - 54 U/L [facility] Anion gap [Moles/Vol] 11 mmol/L 9 - 18 mmol/L [facility] AST [Catalytic activity/Vol] 19 U/L 14 - 40 U/L [facility] Bilirubin [Mass/Vol] 1.3 mg/dL 0.2 - 1 .3 mg/dL [facility] Calcium [Mass/Vol] 10.7 mg/dL High 8.5 - 10. 2 mg/dL [facility] Chloride [Moles/Vol] 102 mmol/L 97 - 10 5 mmol/L [facility] CO2 [Moles/Vol] 23 mmol/L 22 - 30 mmol/L [facility] Creatinine [Mass/Vol] 0.97 mg/dL 0.73 - 1.22 mg/dL [facility] Estimated Glomerular Filtration Rate 83 mL/min/1.73m >=60 mL/min/1.73 m [facility] Glucose [Mass/Vol] 172 mg/dL High 74 - 99 mg/dL [facility] Potassium [Moles/Vol] 4.4 mmol/L 3.7 - 5.1 mmol/L [facility] Protein [Mass/Vol] 7.2 g/dL 6.3 - 8.0 g/dL [facility] Sodium [Moles/Vol] 136 mmol/L 136 - 144 mmol/L [facility] Urea nitrogen [Mass/Vol] 22 mg/dL 9 - 24 mg/dL [facility] CT cervical spine wo con 0 12-15-2022 [place] [address] CT Scan Report Signed Patient: Trinity Perry MR#: [id number] 26 : 1950 Acct:[id number] Age/Sex: 72 / M ADM Date: 12/15/22 Loc: ER Room: Type: PRE ER Attending Dr: Copies to: Jemma Padilla APRN Ordering Provider: Jemma Padilla APRN Date of Service: 12/15/22 CT/CT head/brain wo con: injury ([id number]) CT/CT cervical spine wo con: fall CT [...] Saldaña Jr., D.OKristie12/15/2022 3:56 PM Dictation Location: [place] [address] Transcribed By: [facility] 12/15/22 1556 Dictated By: Ronnie Saldaña Jr, DO 12/15/22 1551 Signed By: 12/15/22 155 Normal [facility] CBC W Auto Differential pane l (Bld)on 12-14-2022 Basophils (Bld) [#/Vol] 0.03 10*3/uL <0.11 k/uL [facility] Basophils/100 WBC (Bld) 0.5 % [facility] Differential cell count method Nom (Bld) Auto [facility] Eosinophils (Bld) [#/Vol] <0.46 k/uL [facility] Eosinophils/100 WBC (Bld) 0.2 % [facility] Erythrocyte distribution width (RBC) [Ratio] 19.2 % High 11.5 - 15.0 % [facility] Hematocrit (Bld) [Volume fraction] 33.4 % Low 39.0 - 51.0 % [facility] Hemoglobin (Bld) [Mass/Vol] 10.5 g/dL Low 13.0 - 17.0 g/dL [facility] Immature granulocytes (Bld) [#/Vol] <0.10 k/uL [facility] Immature granulocytes/100 WBC (Bld) 0.3 % [facility] Lymphocytes (Bld) [#/Vol] 1.25 10*3/uL 1.00 - 4.00 k/uL [facility] Lymphocytes/100 WBC (Bld) 19.1 % [facility] MCH (RBC) [Entitic mass] 32.0 pg 26.0 - 34.0 pg [facility] MCHC (RBC) [Mass/Vol] 31.4 g/dL 30.5 - 36.0 g/dL [facility] MCV (RBC) [Entitic vol] 101.8 fL High 80.0 - 100.0 fL [facility] Monocytes (Bld) [#/Vol] 0.56 10*3/uL <0.87 k/uL [facility] Monocytes/100 WBC (Bld) 8.6 % [facility] Neutrophils (Bld) [#/Vol] 4.67 10*3/uL 1.45 - 7.50 k/uL [facility] Neutrophils/100 WBC (Bld) 71.3 % [facility] Nucleated RBC (Bld) [#/Vol] <0.01 k/uL [facility] Nucleated RBC/100 WBC (Bld) [Ratio] 0.0 /100 WBC [facility] Platelet mean volume (Bld) [Entitic vol] 9.3 fL 9.0 - 12.7 fL [facility] Platelets (Bld) [#/Vol] 362 10*3/uL 150 - 400 k/uL [facility] RBC (Bld) [#/Vol] 3.28 10*6/uL Low 4.20 - 6.0 0 m/uL [facility] WBC (Bld) [#/Vol] 6.54 10*3/uL 3.70 - 11.00 k/uL [facility] Comprehensive metabolic 2000 panelon 12-14-2022 Albumin [Mass/Vol] 3.8 g/dL Low 3.9 - 4.9 g/dL [facility] ALP [Catalytic activity/Vol] 138 U/L High 38 - 113 U/L [facility] ALT [Catalytic activity/Vol] 25 U/L 10 - 54 U/L [facility] Anion gap [Moles/Vol] 8 mmol/L Low 9 - 18 mmol/L [facility] AST [Catalytic activity/Vol] 22 U/L 14 - 40 U/L [facility] Bilirubin [Mass/Vol] 0.9 mg/dL 0.2 - 1 .3 mg/dL [facility] Calcium [Mass/Vol] 10.5 mg/dL High 8.5 - 10. 2 mg/dL [facility] Chloride [Moles/Vol] 104 mmol/L 97 - 10 5 mmol/L [facility] CO2 [Moles/Vol] 24 mmol/L 22 - 30 mmol/L [facility] Creatinine [Mass/Vol] 0.85 mg/dL 0.73 - 1.22 mg/dL [facility] Estimated Glomerular Filtration Rate 93 mL/min/1.73m >=60 mL/min/1.73 m [facility] Glucose [Mass/Vol] 158 mg/dL High 74 - 99 mg/dL [facility] Potassium [Moles/Vol] 4.1 mmol/L 3.7 - 5.1 mmol/L [facility] Protein [Mass/Vol] 7.0 g/dL 6.3 - 8.0 g/dL [facility] Sodium [Moles/Vol] 136 mmol/L 136 - 144 mmol/L [facility] Urea nitrogen [Mass/Vol] 16 mg/dL 9 - 24 mg/dL [facility] CBC W Auto Differential pane l (Bld)on 11-30-2022 Basophils (Bld) [#/Vol] 0.03 10*3/uL <0.11 k/uL [facility] Basophils/100 WBC (Bld) 0.5 % [facility] Differential cell count method Nom (Bld) Auto [facility] Eosinophils (Bld) [#/Vol] <0.46 k/uL [facility] Eosinophils/100 WBC (Bld) 0.3 % [facility] Erythrocyte distribution width (RBC) [Ratio] 14.1 % 11.5 - 15.0 % [facility] Hematocrit (Bld) [Volume fraction] 25.2 % Low 39.0 - 51.0 % [facility] Hemoglobin (Bld) [Mass/Vol] 8.2 g/dL Low 13.0 - 17.0 g/dL [facility] Immature granulocytes (Bld) [#/Vol] 0.07 10*3/uL <0.10 k/uL [facility] Immature granulocytes/100 WBC (Bld) 1.2 % [facility] Lymphocytes (Bld) [#/Vol] 1.86 10*3/uL 1.00 - 4.00 k/uL [facility] Lymphocytes/100 WBC (Bld) 30.9 % [facility] MCH (RBC) [Entitic mass] 31.4 pg 26.0 - 34.0 pg [facility] MCHC (RBC) [Mass/Vol] 32.5 g/dL 30.5 - 36.0 g/dL [facility] MCV (RBC) [Entitic vol] 96.6 fL 80.0 - 100.0 fL [facility] Monocytes (Bld) [#/Vol] 0.26 10*3/uL <0.87 k/uL [facility] Monocytes/100 WBC (Bld) 4.3 % [facility] Neutrophils (Bld) [#/Vol] 3.78 10*3/uL 1.45 - 7.50 k/uL [facility] Neutrophils/100 WBC (Bld) 62.8 % [facility] Nucleated RBC (Bld) [#/Vol] <0.01 k/uL [facility] Nucleated RBC/100 WBC (Bld) [Ratio] 0.0 /100 WBC [facility] Platelet mean volume (Bld) [Entitic vol] 10.0 fL 9.0 - 12.7 fL [facility] Platelets (Bld) [#/Vol] 217 10*3/uL 150 - 400 k/uL [facility] RBC (Bld) [#/Vol] 2.61 10*6/uL Low 4.20 - 6.0 0 m/uL [facility] WBC (Bld) [#/Vol] 6.02 10*3/uL 3.70 - 11.00 k/uL [facility] Comprehensive metabolic 2000 panelon 11-30-2022 Albumin [Mass/Vol] 3.3 g/dL Low 3.9 - 4.9 g/dL [facility] ALP [Catalytic activity/Vol] 121 U/L High 38 - 113 U/L [facility] ALT [Catalytic activity/Vol] 17 U/L 10 - 54 U/L [facility] Anion gap [Moles/Vol] 6 mmol/L Low 9 - 18 mmol/L [facility] AST [Catalytic activity/Vol] 24 U/L 14 - 40 U/L [facility] Bilirubin [Mass/Vol] 1.0 mg/dL 0.2 - 1 .3 mg/dL [facility] Calcium [Mass/Vol] 10.6 mg/dL High 8.5 - 10. 2 mg/dL [facility] Chloride [Moles/Vol] 103 mmol/L 97 - 10 5 mmol/L [facility] CO2 [Moles/Vol] 25 mmol/L 22 - 30 mmol/L [facility] Creatinine [Mass/Vol] 0.80 mg/dL 0.73 - 1.22 mg/dL [facility] Estimated Glomerular Filtration Rate 95 mL/min/1.73m >=60 mL/min/1.73 m [facility] Glucose [Mass/Vol] 273 mg/dL High 74 - 99 mg/dL [facility] Potassium [Moles/Vol] 4.0 mmol/L 3.7 - 5.1 mmol/L [facility] Protein [Mass/Vol] 6.8 g/dL 6.3 - 8.0 g/dL [facility] Sodium [Moles/Vol] 134 mmol/L Low 136 - 144 mmol/L [facility] Urea nitrogen [Mass/Vol] 15 mg/dL 9 - 24 mg/dL [facility] CBC W Auto Differential pane l (Bld)on 11-23-2022 Basophils (Bld) [#/Vol] 0.03 10*3/uL <0.11 k/uL [facility] Basophils/100 WBC (Bld) 0.3 % [facility] Differential cell count method Nom (Bld) Auto [facility] Eosinophils (Bld) [#/Vol] 0.05 10*3/uL <0.46 k/uL [facility] Eosinophils/100 WBC (Bld) 0.5 % [facility] Erythrocyte distribution width (RBC) [Ratio] 13.9 % 11.5 - 15.0 % [facility] Hematocrit (Bld) [Volume fraction] 32.6 % Low 39.0 - 51.0 % [facility] Hemoglobin (Bld) [Mass/Vol] 10.7 g/dL Low 13.0 - 17.0 g/dL [facility] Immature granulocytes (Bld) [#/Vol] 0.04 10*3/uL <0.10 k/uL [facility] Immature granulocytes/100 WBC (Bld) 0.4 % [facility] Lymphocytes (Bld) [#/Vol] 1.57 10*3/uL 1.00 - 4.00 k/uL [facility] Lymphocytes/100 WBC (Bld) 14.5 % [facility] MCH (RBC) [Entitic mass] 31.7 pg 26.0 - 34.0 pg [facility] MCHC (RBC) [Mass/Vol] 32.8 g/dL 30.5 - 36.0 g/dL [facility] MCV (RBC) [Entitic vol] 96.4 fL 80.0 - 100.0 fL [facility] Monocytes (Bld) [#/Vol] 0.77 10*3/uL <0.87 k/uL [facility] Monocytes/100 WBC (Bld) 7.1 % [facility] Neutrophils (Bld) [#/Vol] 8.35 10*3/uL High 1.45 - 7.50 k/uL [facility] Neutrophils/100 WBC (Bld) 77.2 % [facility] Nucleated RBC (Bld) [#/Vol] <0.01 k/uL [facility] Nucleated RBC/100 WBC (Bld) [Ratio] 0.0 /100 WBC [facility] Platelet mean volume (Bld) [Entitic vol] 10.9 fL 9.0 - 12.7 fL [facility] Platelets (Bld) [#/Vol] 269 10*3/uL 150 - 400 k/uL [facility] RBC (Bld) [#/Vol] 3.38 10*6/uL Low 4.20 - 6.0 0 m/uL [facility] WBC (Bld) [#/Vol] 10.81 10*3/uL 3.70 - 11.00 k/uL [facility] Comprehensive metabolic 2000 panelon 11-23-2022 Albumin [Mass/Vol] 3.5 g/dL Low 3.9 - 4.9 g/dL [facility] ALP [Catalytic activity/Vol] 136 U/L High 38 - 113 U/L [facility] ALT [Catalytic activity/Vol] 13 U/L 10 - 54 U/L [facility] Anion gap [Moles/Vol] 9 mmol/L 9 - 18 mmol/L [facility] AST [Catalytic activity/Vol] 13 U/L Low 14 - 40 U/L [facility] Bilirubin [Mass/Vol] 1.0 mg/dL 0.2 - 1 .3 mg/dL [facility] Calcium [Mass/Vol] 10.4 mg/dL High 8.5 - 10. 2 mg/dL [facility] Chloride [Moles/Vol] 101 mmol/L 97 - 10 5 mmol/L [facility] CO2 [Moles/Vol] 23 mmol/L 22 - 30 mmol/L [facility] Creatinine [Mass/Vol] 0.80 mg/dL 0.73 - 1.22 mg/dL [facility] Estimated Glomerular Filtration Rate 95 mL/min/1.73m >=60 mL/min/1.73 m [facility] Glucose [Mass/Vol] 251 mg/dL High 74 - 99 mg/dL [facility] Potassium [Moles/Vol] 4.1 mmol/L 3.7 - 5.1 mmol/L [facility] Protein [Mass/Vol] 7.1 g/dL 6.3 - 8.0 g/dL [facility] Sodium [Moles/Vol] 133 mmol/L Low 136 - 144 mmol/L [facility] Urea nitrogen [Mass/Vol] 15 mg/dL 9 - 24 mg/dL [facility] CBC W Auto Differential pane l (Bld)on 11-10-2022 Basophils (Bld) [#/Vol] 0.03 10*3/uL <0.11 k/uL [facility] Basophils/100 WBC (Bld) 0.4 % [facility] Differential cell count method Nom (Bld) Auto [facility] Eosinophils (Bld) [#/Vol] 0.04 10*3/uL <0.46 k/uL [facility] Eosinophils/100 WBC (Bld) 0.5 % [facility] Erythrocyte distribution width (RBC) [Ratio] 14.2 % 11.5 - 15.0 % [facility] Hematocrit (Bld) [Volume fraction] 37.4 % Low 39.0 - 51.0 % [facility] Hemoglobin (Bld) [Mass/Vol] 12.2 g/dL Low 13.0 - 17.0 g/dL [facility] Immature granulocytes (Bld) [#/Vol] 0.04 10*3/uL <0.10 k/uL [facility] Immature granulocytes/100 WBC (Bld) 0.5 % [facility] Lymphocytes (Bld) [#/Vol] 1.39 10*3/uL 1.00 - 4.00 k/uL [facility] Lymphocytes/100 WBC (Bld) 17.4 % [facility] MCH (RBC) [Entitic mass] 31.6 pg 26.0 - 34.0 pg [facility] MCHC (RBC) [Mass/Vol] 32.6 g/dL 30.5 - 36.0 g/dL [facility] MCV (RBC) [Entitic vol] 96.9 fL 80.0 - 100.0 fL [facility] Monocytes (Bld) [#/Vol] 0.53 10*3/uL <0.87 k/uL [facility] Monocytes/100 WBC (Bld) 6.6 % [facility] Neutrophils (Bld) [#/Vol] 5.97 10*3/uL 1.45 - 7.50 k/uL [facility] Neutrophils/100 WBC (Bld) 74.6 % [facility] Nucleated RBC (Bld) [#/Vol] <0.01 k/uL [facility] Nucleated RBC/100 WBC (Bld) [Ratio] 0.0 /100 WBC [facility] Platelet mean volume (Bld) [Entitic vol] 11.3 fL 9.0 - 12.7 fL [facility] Platelets (Bld) [#/Vol] 254 10*3/uL 150 - 400 k/uL [facility] RBC (Bld) [#/Vol] 3.86 10*6/uL Low 4.20 - 6.0 0 m/uL [facility] WBC (Bld) [#/Vol] 8.00 10*3/uL 3.70 - 11.00 k/uL [facility] Comprehensive metabolic 2000 panelon 11-10-2022 Albumin [Mass/Vol] 4.0 g/dL 3.9 - 4.9 g/dL [facility] ALP [Catalytic activity/Vol] 180 U/L High 38 - 113 U/L [facility] ALT [Catalytic activity/Vol] 26 U/L 10 - 54 U/L [facility] Anion gap [Moles/Vol] 9 mmol/L 9 - 18 mmol/L [facility] AST [Catalytic activity/Vol] 21 U/L 14 - 40 U/L [facility] Bilirubin [Mass/Vol] 0.9 mg/dL 0.2 - 1 .3 mg/dL [facility] Calcium [Mass/Vol] 11.0 mg/dL High 8.5 - 10. 2 mg/dL [facility] Chloride [Moles/Vol] 100 mmol/L 97 - 10 5 mmol/L [facility] CO2 [Moles/Vol] 23 mmol/L 22 - 30 mmol/L [facility] Creatinine [Mass/Vol] 0.77 mg/dL 0.73 - 1.22 mg/dL [facility] Estimated Glomerular Filtration Rate 96 mL/min/1.73m >=60 mL/min/1.73 m [facility] Glucose [Mass/Vol] 782 mg/dL High 74 - 99 mg/dL [facility] Potassium [Moles/Vol] 4.7 mmol/L 3.7 - 5.1 mmol/L [facility] Protein [Mass/Vol] 7.4 g/dL 6.3 - 8.0 g/dL [facility] Sodium [Moles/Vol] 132 mmol/L Low 136 - 144 mmol/L [facility] Urea nitrogen [Mass/Vol] 16 mg/dL 9 - 24 mg/dL [facility] CT Abdomen and Pelvis W [...] any questions regarding this interpretation, please call [phone]. If you are unable to reach us at the number above, please feel free to contact [facility] at [phone]. DIVISION OF RADIOLOGY * * *Final Report* * * DATE OF EXAM: Nov 03 2022 10:35AM [facility] 0530 - CT ABD/PEL W IVCON / [...] enlarged retroperitoneal and central mesenteric lymph nodes. Roast Master measurements are detailed as follows on series [...] chest CT performed will be reported separately. Delivery Sales Worker (topogram) images: No additional findings. DIVISION OF RADIOLOGY Provider, [facility] - 11/03/2022 * * *Final Report* * * DATE OF EXAM: Nov 03 2022 10:35AM [facility] 0530 - CT ABD/PEL W IVCON / [...] enlarged retroperitoneal and central mesenteric lymph nodes. Roast Master measurements are detailed as follows on series [...] chest CT performed will be reported separately. Delivery Sales Worker (topogram) images: No additional findings. IMPRESSION IMPRESSION: [...] any questions regarding this interpretation, please call [phone]. If you are unable to reach us at the number above, please feel free to contact [facility] at [phone]. [facility] CT Chest W contrast [place] IMPRESSION: 1. [...] report reviewed and electronically signed by: ALDA SANHCEZ MD on Nov 03 2022 1:02PM EST Thank you for allowing us to participate in the care of your patient. Should there be any questions regarding this interpretation, please call [phone]. If you are unable to reach us at the number above, please feel [facility] at [phone]. DIVISION OF RADIOLOGY * * *Final Report* * * DATE OF EXAM: Nov 03 2022 10:35AM [facility] 0539 - CT CHEST W IVCON / [...] for findings related to the upper abdomen. Delivery Sales Worker (topogram) images: No additional findings. DIVISION OF RADIOLOGY Provider, [facility] - 11/03/2022 * * *Final Report* * * DATE OF EXAM: Nov 03 2022 10:35AM [facility] 0539 - CT CHEST W IVCON / [...] for findings related to the upper abdomen. Delivery Sales Worker (topogram) images: No additional findings. IMPRESSION IMPRESSION: [...] any questions regarding this interpretation, please call [phone]. If you are unable to reach us at the number above, please feel free to contact [facility] at [phone]. [facility] CT Chest W contrast IVOrdere d By: [facility] Provider on 11-03-2022 [facility] No Panel Informationon 11-03 Radiology Study observation (narrative) [facility] CBC W Auto Differential pane l (Bld)on 09-29-2022 Basophils (Bld) [#/Vol] <0.11 k/uL [facility] Basophils/100 WBC (Bld) 0.2 % [facility] Differential cell count method Nom (Bld) Auto [facility] Eosinophils (Bld) [#/Vol] 0.06 10*3/uL <0.46 k/uL [facility] Eosinophils/100 WBC (Bld) 0.7 % [facility] Erythrocyte distribution width (RBC) [Ratio] 14.3 % 11.5 - 15.0 % [facility] Hematocrit (Bld) [Volume fraction] 35.6 % Low 39.0 - 51.0 % [facility] Hemoglobin (Bld) [Mass/Vol] 11.3 g/dL Low 13.0 - 17.0 g/dL [facility] Immature granulocytes (Bld) [#/Vol] <0.10 k/uL [facility] Immature granulocytes/100 WBC (Bld) 0.2 % [facility] Lymphocytes (Bld) [#/Vol] 1.48 10*3/uL 1.00 - 4.00 k/uL [facility] Lymphocytes/100 WBC (Bld) 17.4 % [facility] MCH (RBC) [Entitic mass] 31.1 pg 26.0 - 34.0 pg [facility] MCHC (RBC) [Mass/Vol] 31.7 g/dL 30.5 - 36.0 g/dL [facility] MCV (RBC) [Entitic vol] 98.1 fL 80.0 - 100.0 fL [facility] Monocytes (Bld) [#/Vol] 0.68 10*3/uL <0.87 k/uL [facility] Monocytes/100 WBC (Bld) 8.0 % [facility] Neutrophils (Bld) [#/Vol] 6.24 10*3/uL 1.45 - 7.50 k/uL [facility] Neutrophils/100 WBC (Bld) 73.5 % [facility] Nucleated RBC (Bld) [#/Vol] <0.01 k/uL [facility] Nucleated RBC/100 WBC (Bld) [Ratio] 0.0 /100 WBC [facility] Platelet mean volume (Bld) [Entitic vol] 10.6 fL 9.0 - 12.7 fL [facility] Platelets (Bld) [#/Vol] 260 10*3/uL 150 - 400 k/uL [facility] RBC (Bld) [#/Vol] 3.63 10*6/uL Low 4.20 - 6.0 0 m/uL [facility] WBC (Bld) [#/Vol] 8.50 10*3/uL 3.70 - 11.00 k/uL [facility] Comprehensive metabolic 2000 panelon 09-29-2022 Albumin [Mass/Vol] 4.0 g/dL 3.9 - 4.9 g/dL [facility] ALP [Catalytic activity/Vol] 170 U/L High 38 - 113 U/L [facility] ALT [Catalytic activity/Vol] 23 U/L 10 - 54 U/L [facility] Anion gap [Moles/Vol] 9 mmol/L 9 - 18 mmol/L [facility] AST [Catalytic activity/Vol] 18 U/L 14 - 40 U/L [facility] Bilirubin [Mass/Vol] 1.1 mg/dL 0.2 - 1 .3 mg/dL [facility] Calcium [Mass/Vol] 10.4 mg/dL High 8.5 - 10. 2 mg/dL [facility] Chloride [Moles/Vol] 100 mmol/L 97 - 10 5 mmol/L [facility] CO2 [Moles/Vol] 25 mmol/L 22 - 30 mmol/L [facility] Creatinine [Mass/Vol] 0.75 mg/dL 0.73 - 1.22 mg/dL [facility] Estimated Glomerular Filtration Rate 96 mL/min/1.73m >=60 mL/min/1.73 m [facility] Glucose [Mass/Vol] 377 mg/dL High 74 - 99 mg/dL [facility] Potassium [Moles/Vol] 5.0 mmol/L 3.7 - 5.1 mmol/L [facility] Protein [Mass/Vol] 7.1 g/dL 6.3 - 8.0 g/dL [facility] Sodium [Moles/Vol] 134 mmol/L Low 136 - 144 mmol/L [facility] Urea nitrogen [Mass/Vol] 19 mg/dL 9 - 24 mg/dL [facility] CBC W Auto Differential pane l (Bld)on 08-02-2022 Basophils (Bld) [#/Vol] <0.11 k/uL [facility] Basophils/100 WBC (Bld) 0.2 % [facility] Differential cell count method Nom (Bld) Auto [facility] Eosinophils (Bld) [#/Vol] 0.07 10*3/uL <0.46 k/uL [facility] Eosinophils/100 WBC (Bld) 0.7 % [facility] Erythrocyte distribution width (RBC) [Ratio] 15.3 % High 11.5 - 15.0 % [facility] Hematocrit (Bld) [Volume fraction] 35.3 % Low 39.0 - 51.0 % [facility] Hemoglobin (Bld) [Mass/Vol] 11.5 g/dL Low 13.0 - 17.0 g/dL [facility] Immature granulocytes (Bld) [#/Vol] 0.03 10*3/uL <0.10 k/uL [facility] Immature granulocytes/100 WBC (Bld) 0.3 % [facility] Lymphocytes (Bld) [#/Vol] 1.91 10*3/uL 1.00 - 4.00 k/uL [facility] Lymphocytes/100 WBC (Bld) 20.2 % [facility] MCH (RBC) [Entitic mass] 31.3 pg 26.0 - 34.0 pg [facility] MCHC (RBC) [Mass/Vol] 32.6 g/dL 30.5 - 36.0 g/dL [facility] MCV (RBC) [Entitic vol] 96.2 fL 80.0 - 100.0 fL [facility] Monocytes (Bld) [#/Vol] 0.81 10*3/uL <0.87 k/uL [facility] Monocytes/100 WBC (Bld) 8.6 % [facility] Neutrophils (Bld) [#/Vol] 6.60 10*3/uL 1.45 - 7.50 k/uL [facility] Neutrophils/100 WBC (Bld) 70.0 % [facility] Nucleated RBC (Bld) [#/Vol] <0.01 k/uL [facility] Nucleated RBC/100 WBC (Bld) [Ratio] 0.0 /100 WBC [facility] Platelet mean volume (Bld) [Entitic vol] 10.2 fL 9.0 - 12.7 fL [facility] Platelets (Bld) [#/Vol] 257 10*3/uL 150 - 400 k/uL [facility] RBC (Bld) [#/Vol] 3.67 10*6/uL Low 4.20 - 6.0 0 m/uL [facility] WBC (Bld) [#/Vol] 9.44 10*3/uL 3.70 - 11.00 k/uL [facility] Comprehensive metabolic 2000 panelon 08-02-2022 Albumin [Mass/Vol] 4.2 g/dL 3.9 - 4.9 g/dL [facility] ALP [Catalytic activity/Vol] 140 U/L High 38 - 113 U/L [facility] ALT [Catalytic activity/Vol] 17 U/L 10 - 54 U/L [facility] Anion gap [Moles/Vol] 8 mmol/L Low 9 - 18 mmol/L [facility] AST [Catalytic activity/Vol] 20 U/L 14 - 40 U/L [facility] Bilirubin [Mass/Vol] 1.0 mg/dL 0.2 - 1 .3 mg/dL [facility] Calcium [Mass/Vol] 10.6 mg/dL High 8.5 - 10. 2 mg/dL [facility] Chloride [Moles/Vol] 105 mmol/L 97 - 10 5 mmol/L [facility] CO2 [Moles/Vol] 24 mmol/L 22 - 30 mmol/L [facility] Creatinine [Mass/Vol] 0.81 mg/dL 0.73 - 1.22 mg/dL [facility] Estimated Glomerular Filtration Rate 94 mL/min/1.73m >=60 mL/min/1.73 m [facility] Glucose [Mass/Vol] 151 mg/dL High 74 - 99 mg/dL [facility] Potassium [Moles/Vol] 4.7 mmol/L 3.7 - 5.1 mmol/L [facility] Protein [Mass/Vol] 7.3 g/dL 6.3 - 8.0 g/dL [facility] Sodium [Moles/Vol] 137 mmol/L 136 - 144 mmol/L [facility] Urea nitrogen [Mass/Vol] 18 mg/dL 9 - 24 mg/dL [facility] CT Abdomen and Pelvis W [...] any questions regarding this interpretation, please call [phone]. If you are unable to reach us at the number above, please feel free to contact [facility] eRadiology at [phone]. DIVISION OF RADIOLOGY * * *Final Report* * * DATE OF EXAM: Jul 27 2022 11:05AM [facility] 0530 - CT ABD/PEL W IVCON / [...] CT scan report for the abdomen findings. Delivery Sales Worker (topogram) images: No additional findings. DIVISION OF RADIOLOGY Provider, [facility] - 07/27/2022 * * *Final Report* * * DATE OF EXAM: Jul 27 2022 11:05AM [facility] 0530 - CT ABD/PEL W IVCON / [...] CT scan report for the abdomen findings. Delivery Sales Worker (topogram) images: No additional findings. IMPRESSION IMPRESSION: 1. No interval change since 05/25/22. 2. Multiple mesenteric and peritoneal masses/lymphadenopathy, stable. Transcribe Date/Time: Jul 27 2022 3:17P Dictated by: ASHANTI REN MD This examination was interpreted and the report reviewed and electronically signed by: AHSANTI REN MD on Jul 27 2022 4:00PM EST Thank you for allowing us to participate in the care of your patient. Should there be any questions regarding this interpretation, please call [phone]. If you are unable to reach us at the number above, please feel free to contact [facility] eRadiology at [phone]. [facility] CT Chest W contrast [place] IMPRESSION: 1. [...] any questions regarding this interpretation, please call [phone]. If you are unable to reach us at the number above, please feel free to contact [facility]Radiology at [phone]. DIVISION OF RADIOLOGY * * *Final Report* * * DATE OF EXAM: Jul 27 2022 11:05AM [facility] 0539 - CT CHEST W IVCON / [...] CT scan report for the abdomen findings. Delivery Sales Worker (topogram) images: No additional findings. DIVISION OF RADIOLOGY Provider, [facility] - 07/27/2022 * * *Final Report* * * DATE OF EXAM: Jul 27 2022 11:05AM [facility] 0539 - CT CHEST W IVCON / [...] CT scan report for the abdomen findings. Delivery Sales Worker (topogram) images: No additional findings. IMPRESSION IMPRESSION: [...] any questions regarding this interpretation, please call [phone]. If you are unable to reach us at the number above, please feel free to contact [facility] eRadiology at [phone]. [facility] CT Chest W contrast IVOrdere d By: Ccf Provider on 07-27-2022 [facility] No Panel Informationon 07-27 Radiology Study observation (narrative) [facility] CBC W Auto Differential pane l (Bld)on 06-29-2022 Basophils (Bld) [#/Vol] 0.03 10*3/uL <0.11 k/uL [facility] Basophils/100 WBC (Bld) 0.3 % [facility] Differential cell count method Nom (Bld) Auto [facility] Eosinophils (Bld) [#/Vol] 0.09 10*3/uL <0.46 k/uL [facility] Eosinophils/100 WBC (Bld) 0.9 % [facility] Erythrocyte distribution width (RBC) [Ratio] 15.3 % High 11.5 - 15.0 % [facility] Hematocrit (Bld) [Volume fraction] 36.8 % Low 39.0 - 51.0 % [facility] Hemoglobin (Bld) [Mass/Vol] 11.7 g/dL Low 13.0 - 17.0 g/dL [facility] Immature granulocytes (Bld) [#/Vol] 0.03 10*3/uL <0.10 k/uL [facility] Immature granulocytes/100 WBC (Bld) 0.3 % [facility] Lymphocytes (Bld) [#/Vol] 2.15 10*3/uL 1.00 - 4.00 k/uL [facility] Lymphocytes/100 WBC (Bld) 20.9 % [facility] MCH (RBC) [Entitic mass] 30.5 pg 26.0 - 34.0 pg [facility] MCHC (RBC) [Mass/Vol] 31.8 g/dL 30.5 - 36.0 g/dL [facility] MCV (RBC) [Entitic vol] 96.1 fL 80.0 - 100.0 fL [facility] Monocytes (Bld) [#/Vol] 1.05 10*3/uL High <0.87 k/uL [facility] Monocytes/100 WBC (Bld) 10.2 % [facility] Neutrophils (Bld) [#/Vol] 6.95 10*3/uL 1.45 - 7.50 k/uL [facility] Neutrophils/100 WBC (Bld) 67.4 % [facility] Nucleated RBC (Bld) [#/Vol] <0.01 k/uL [facility] Nucleated RBC/100 WBC (Bld) [Ratio] 0.0 /100 WBC [facility] Platelet mean volume (Bld) [Entitic vol] 9.8 fL 9.0 - 12.7 fL [facility] Platelets (Bld) [#/Vol] 288 10*3/uL 150 - 400 k/uL [facility] RBC (Bld) [#/Vol] 3.83 10*6/uL Low 4.20 - 6.0 0 m/uL [facility] WBC (Bld) [#/Vol] 10.30 10*3/uL 3.70 - 11.00 k/uL [facility] Comprehensive metabolic 2000 panelon 06-29-2022 Albumin [Mass/Vol] 4.2 g/dL 3.9 - 4.9 g/dL [facility] ALP [Catalytic activity/Vol] 146 U/L High 38 - 113 U/L [facility] ALT [Catalytic activity/Vol] 21 U/L 10 - 54 U/L [facility] Anion gap [Moles/Vol] 8 mmol/L Low 9 - 18 mmol/L [facility] AST [Catalytic activity/Vol] 20 U/L 14 - 40 U/L [facility] Bilirubin [Mass/Vol] 0.9 mg/dL 0.2 - 1 .3 mg/dL [facility] Calcium [Mass/Vol] 10.6 mg/dL High 8.5 - 10. 2 mg/dL [facility] Chloride [Moles/Vol] 100 mmol/L 97 - 10 5 mmol/L [facility] CO2 [Moles/Vol] 25 mmol/L 22 - 30 mmol/L [facility] Creatinine [Mass/Vol] 0.83 mg/dL 0.73 - 1.22 mg/dL [facility] Estimated Glomerular Filtration Rate 94 mL/min/1.73m >=60 mL/min/1.73 m [facility] Glucose [Mass/Vol] 189 mg/dL High 74 - 99 mg/dL [facility] Potassium [Moles/Vol] 4.7 mmol/L 3.7 - 5.1 mmol/L [facility] Protein [Mass/Vol] 7.6 g/dL 6.3 - 8.0 g/dL [facility] Sodium [Moles/Vol] 133 mmol/L Low 136 - 144 mmol/L [facility] Urea nitrogen [Mass/Vol] 21 mg/dL 9 - 24 mg/dL [facility] CBC W Auto Differential pane l (Bld)on 06-01-2022 Basophils (Bld) [#/Vol] 0.05 10*3/uL <0.11 k/uL [facility] Basophils/100 WBC (Bld) 0.6 % [facility] Differential cell count method Nom (Bld) Auto [facility] Eosinophils (Bld) [#/Vol] 0.11 10*3/uL <0.46 k/uL [facility] Eosinophils/100 WBC (Bld) 1.3 % [facility] Erythrocyte distribution width (RBC) [Ratio] 15.9 % High 11.5 - 15.0 % [facility] Hematocrit (Bld) [Volume fraction] 34.6 % Low 39.0 - 51.0 % [facility] Hemoglobin (Bld) [Mass/Vol] 11.0 g/dL Low 13.0 - 17.0 g/dL [facility] Immature granulocytes (Bld) [#/Vol] 0.03 10*3/uL <0.10 k/uL [facility] Immature granulocytes/100 WBC (Bld) 0.4 % [facility] Lymphocytes (Bld) [#/Vol] 1.92 10*3/uL 1.00 - 4.00 k/uL [facility] Lymphocytes/100 WBC (Bld) 22.6 % [facility] MCH (RBC) [Entitic mass] 31.7 pg 26.0 - 34.0 pg [facility] MCHC (RBC) [Mass/Vol] 31.8 g/dL 30.5 - 36.0 g/dL [facility] MCV (RBC) [Entitic vol] 99.7 fL 80.0 - 100.0 fL [facility] Monocytes (Bld) [#/Vol] 0.95 10*3/uL High <0.87 k/uL [facility] Monocytes/100 WBC (Bld) 11.2 % [facility] Neutrophils (Bld) [#/Vol] 5.43 10*3/uL 1.45 - 7.50 k/uL [facility] Neutrophils/100 WBC (Bld) 63.9 % [facility] Nucleated RBC (Bld) [#/Vol] <0.01 k/uL [facility] Nucleated RBC/100 WBC (Bld) [Ratio] 0.0 /100 WBC [facility] Platelet mean volume (Bld) [Entitic vol] 9.9 fL 9.0 - 12.7 fL [facility] Platelets (Bld) [#/Vol] 354 10*3/uL 150 - 400 k/uL [facility] RBC (Bld) [#/Vol] 3.47 10*6/uL Low 4.20 - 6.0 0 m/uL [facility] WBC (Bld) [#/Vol] 8.49 10*3/uL 3.70 - 11.00 k/uL [facility] Comprehensive metabolic 2000 panelon 06-01-2022 Albumin [Mass/Vol] 4.3 g/dL 3.9 - 4.9 g/dL [facility] ALP [Catalytic activity/Vol] 138 U/L High 38 - 113 U/L [facility] ALT [Catalytic activity/Vol] 20 U/L 10 - 54 U/L [facility] Anion gap [Moles/Vol] 7 mmol/L Low 9 - 18 mmol/L [facility] AST [Catalytic activity/Vol] 19 U/L 14 - 40 U/L [facility] Bilirubin [Mass/Vol] 0.5 mg/dL 0.2 - 1 .3 mg/dL [facility] Calcium [Mass/Vol] 10.1 mg/dL 8.5 - 10. 2 mg/dL [facility] Chloride [Moles/Vol] 103 mmol/L 97 - 10 5 mmol/L [facility] CO2 [Moles/Vol] 25 mmol/L 22 - 30 mmol/L [facility] Creatinine [Mass/Vol] 0.76 mg/dL 0.73 - 1.22 mg/dL [facility] Estimated Glomerular Filtration Rate 96 mL/min/1.73m >=60 mL/min/1.73 m [facility] Glucose [Mass/Vol] 179 mg/dL High 74 - 99 mg/dL [facility] Potassium [Moles/Vol] 4.9 mmol/L 3.7 - 5.1 mmol/L [facility] Protein [Mass/Vol] 6.9 g/dL 6.3 - 8.0 g/dL [facility] Sodium [Moles/Vol] 135 mmol/L Low 136 - 144 mmol/L [facility] Urea nitrogen [Mass/Vol] 20 mg/dL 9 - 24 mg/dL [facility] CT Abdomen and Pelvis W [...] any questions regarding this interpretation, please call [phone]. If you are unable to reach us at the number above, please feel free [facility] [phone][facility] DIVISION OF RADIOLOGY * * *Final Report* * * DATE OF EXAM: May 25 2022 11:28AM [facility] 0530 - CT ABD/PEL W IVCON / [...] lobar consolidation or pleural effusion is seen. Delivery Sales Worker (topogram) images: No additional findings. DIVISION OF RADIOLOGY Provider, [facility] - 05/25/2022 * * *Final Report* * * DATE OF EXAM: May 25 2022 11:28AM [facility] 0530 - CT ABD/PEL W IVCON / [...] lobar consolidation or pleural effusion is seen. Delivery Sales Worker (topogram) images: No additional findings. IMPRESSION IMPRESSION: [...] any questions regarding this interpretation, please call [phone]. If you are unable to reach us at the number above, please feel free to contact [facility] eRadiology at [phone]. [facility] CT Chest W contrast [place] IMPRESSION: 1. [...] any questions regarding this interpretation, please call [phone]. If you are unable to reach us at the number above, please feel free to contact [facility] eRadiology at [phone]. DIVISION OF RADIOLOGY * * *Final Report* * * DATE OF EXAM: May 25 2022 11:28AM [facility] 0539 - CT CHEST W IVCON / [...] was performed concurrently and is reported separately. Delivery Sales Worker (topogram) images: No additional findings. DIVISION OF RADIOLOGY Provider, [facility] - 05/25/2022 * * *Final Report* * * DATE OF EXAM: May 25 2022 11:28AM [facility] 0539 - CT CHEST W IVCON / [...] was performed concurrently and is reported separately. Delivery Sales Worker (topogram) images: No additional findings. IMPRESSION IMPRESSION: [...] any questions regarding this interpretation, please call [phone]. If you are unable to reach us at the number above, please feel free to contact [facility] eRadiology at [phone]. [facility] CT Chest W contrast IVOrdere d By: Ccf Provider on 05-25-2022 [facility] No Panel Informationon 05-25 Radiology Study observation (narrative) [facility] CBC W Auto Differential pane l (Bld)on 05-11-2022 Basophils (Bld) [#/Vol] <0.11 k/uL [facility] Basophils/100 WBC (Bld) 0.3 % [facility] Differential cell count method Nom (Bld) Auto [facility] Eosinophils (Bld) [#/Vol] 0.10 10*3/uL <0.46 k/uL [facility] Eosinophils/100 WBC (Bld) 1.6 % [facility] Erythrocyte distribution width (RBC) [Ratio] 16.8 % High 11.5 - 15.0 % [facility] Hematocrit (Bld) [Volume fraction] 30.7 % Low 39.0 - 51.0 % [facility] Hemoglobin (Bld) [Mass/Vol] 9.5 g/dL Low 13.0 - 17.0 g/dL [facility] Immature granulocytes (Bld) [#/Vol] 0.03 10*3/uL <0.10 k/uL [facility] Immature granulocytes/100 WBC (Bld) 0.5 % [facility] Lymphocytes (Bld) [#/Vol] 1.49 10*3/uL 1.00 - 4.00 k/uL [facility] Lymphocytes/100 WBC (Bld) 24.0 % [facility] MCH (RBC) [Entitic mass] 31.6 pg 26.0 - 34.0 pg [facility] MCHC (RBC) [Mass/Vol] 30.9 g/dL 30.5 - 36.0 g/dL [facility] MCV (RBC) [Entitic vol] 102.0 fL High 80.0 - 100.0 fL [facility] Monocytes (Bld) [#/Vol] 0.79 10*3/uL <0.87 k/uL [facility] Monocytes/100 WBC (Bld) 12.7 % [facility] Neutrophils (Bld) [#/Vol] 3.79 10*3/uL 1.45 - 7.50 k/uL [facility] Neutrophils/100 WBC (Bld) 60.9 % [facility] Nucleated RBC (Bld) [#/Vol] <0.01 k/uL [facility] Nucleated RBC/100 WBC (Bld) [Ratio] 0.0 /100 WBC [facility] Platelet mean volume (Bld) [Entitic vol] 9.9 fL 9.0 - 12.7 fL [facility] Platelets (Bld) [#/Vol] 347 10*3/uL 150 - 400 k/uL [facility] RBC (Bld) [#/Vol] 3.01 10*6/uL Low 4.20 - 6.0 0 m/uL [facility] WBC (Bld) [#/Vol] 6.22 10*3/uL 3.70 - 11.00 k/uL [facility] Comprehensive metabolic 2000 panelon 05-11-2022 Albumin [Mass/Vol] 3.9 g/dL 3.9 - 4.9 g/dL [facility] ALP [Catalytic activity/Vol] 134 U/L High 38 - 113 U/L [facility] ALT [Catalytic activity/Vol] 20 U/L 10 - 54 U/L [facility] Anion gap [Moles/Vol] 7 mmol/L Low 9 - 18 mmol/L [facility] AST [Catalytic activity/Vol] 19 U/L 14 - 40 U/L [facility] Bilirubin [Mass/Vol] 0.6 mg/dL 0.2 - 1 .3 mg/dL [facility] Calcium [Mass/Vol] 9.8 mg/dL 8.5 - 10. 2 mg/dL [facility] Chloride [Moles/Vol] 105 mmol/L 97 - 10 5 mmol/L [facility] CO2 [Moles/Vol] 24 mmol/L 22 - 30 mmol/L [facility] Creatinine [Mass/Vol] 0.71 mg/dL Low 0.73 - 1.22 mg/dL [facility] Estimated Glomerular Filtration Rate 98 mL/min/1.73m >=60 mL/min/1.73 m [facility] Glucose [Mass/Vol] 240 mg/dL High 74 - 99 mg/dL [facility] Potassium [Moles/Vol] 4.6 mmol/L 3.7 - 5.1 mmol/L [facility] Protein [Mass/Vol] 6.5 g/dL 6.3 - 8.0 g/dL [facility] Sodium [Moles/Vol] 136 mmol/L 136 - 144 mmol/L [facility] Urea nitrogen [Mass/Vol] 17 mg/dL 9 - 24 mg/dL [facility] CBC W Auto Differential pane l (Bld)on 04-26-2022 Basophils (Bld) [#/Vol] 0.05 10*3/uL <0.11 k/uL [facility] Basophils/100 WBC (Bld) 0.8 % [facility] Differential cell count method Nom (Bld) Auto [facility] Eosinophils (Bld) [#/Vol] 0.04 10*3/uL <0.46 k/uL [facility] Eosinophils/100 WBC (Bld) 0.6 % [facility] Erythrocyte distribution width (RBC) [Ratio] 15.9 % High 11.5 - 15.0 % [facility] Hematocrit (Bld) [Volume fraction] 26.9 % Low 39.0 - 51.0 % [facility] Hemoglobin (Bld) [Mass/Vol] 8.5 g/dL Low 13.0 - 17.0 g/dL [facility] Immature granulocytes (Bld) [#/Vol] 0.07 10*3/uL <0.10 k/uL [facility] Immature granulocytes/100 WBC (Bld) 1.1 % [facility] Lymphocytes (Bld) [#/Vol] 1.73 10*3/uL 1.00 - 4.00 k/uL [facility] Lymphocytes/100 WBC (Bld) 28.1 % [facility] MCH (RBC) [Entitic mass] 32.2 pg 26.0 - 34.0 pg [facility] MCHC (RBC) [Mass/Vol] 31.6 g/dL 30.5 - 36.0 g/dL [facility] MCV (RBC) [Entitic vol] 101.9 fL High 80.0 - 100.0 fL [facility] Monocytes (Bld) [#/Vol] 0.28 10*3/uL <0.87 k/uL [facility] Monocytes/100 WBC (Bld) 4.5 % [facility] Neutrophils (Bld) [#/Vol] 3.99 10*3/uL 1.45 - 7.50 k/uL [facility] Neutrophils/100 WBC (Bld) 64.9 % [facility] Nucleated RBC (Bld) [#/Vol] <0.01 k/uL [facility] Nucleated RBC/100 WBC (Bld) [Ratio] 0.0 /100 WBC [facility] Platelet mean volume (Bld) [Entitic vol] 9.4 fL 9.0 - 12.7 fL [facility] Platelets (Bld) [#/Vol] 413 10*3/uL High 150 - 400 k/uL [facility] RBC (Bld) [#/Vol] 2.64 10*6/uL Low 4.20 - 6.0 0 m/uL [facility] WBC (Bld) [#/Vol] 6.16 10*3/uL 3.70 - 11.00 k/uL [facility] Comprehensive metabolic 2000 panelon 04-26-2022 Albumin [Mass/Vol] 4.0 g/dL 3.9 - 4.9 g/dL [facility] ALP [Catalytic activity/Vol] 129 U/L High 38 - 113 U/L [facility] ALT [Catalytic activity/Vol] 31 U/L 10 - 54 U/L [facility] Anion gap [Moles/Vol] 8 mmol/L Low 9 - 18 mmol/L [facility] AST [Catalytic activity/Vol] 29 U/L 14 - 40 U/L [facility] Bilirubin [Mass/Vol] 0.7 mg/dL 0.2 - 1 .3 mg/dL [facility] Calcium [Mass/Vol] 10.4 mg/dL High 8.5 - 10. 2 mg/dL [facility] Chloride [Moles/Vol] 103 mmol/L 97 - 10 5 mmol/L [facility] CO2 [Moles/Vol] 25 mmol/L 22 - 30 mmol/L [facility] Creatinine [Mass/Vol] 0.80 mg/dL 0.73 - 1.22 mg/dL [facility] Estimated Glomerular Filtration Rate 95 mL/min/1.73m >=60 mL/min/1.73 m [facility] Glucose [Mass/Vol] 127 mg/dL High 74 - 99 mg/dL [facility] Potassium [Moles/Vol] 4.5 mmol/L 3.7 - 5.1 mmol/L [facility] Protein [Mass/Vol] 6.8 g/dL 6.3 - 8.0 g/dL [facility] Sodium [Moles/Vol] 136 mmol/L 136 - 144 mmol/L [facility] Urea nitrogen [Mass/Vol] 13 mg/dL 9 - 24 mg/dL [facility] CBC W Auto Differential pane l (Bld)on 04-20-2022 Basophils (Bld) [#/Vol] 0.03 10*3/uL <0.11 k/uL [facility] Basophils/100 WBC (Bld) 0.4 % [facility] Differential cell count method Nom (Bld) Auto [facility] Eosinophils (Bld) [#/Vol] 0.10 10*3/uL <0.46 k/uL [facility] Eosinophils/100 WBC (Bld) 1.2 % [facility] Erythrocyte distribution width (RBC) [Ratio] 16.8 % High 11.5 - 15.0 % [facility] Hematocrit (Bld) [Volume fraction] 29.4 % Low 39.0 - 51.0 % [facility] Hemoglobin (Bld) [Mass/Vol] 9.2 g/dL Low 13.0 - 17.0 g/dL [facility] Immature granulocytes (Bld) [#/Vol] 0.05 10*3/uL <0.10 k/uL [facility] Immature granulocytes/100 WBC (Bld) 0.6 % [facility] Lymphocytes (Bld) [#/Vol] 1.46 10*3/uL 1.00 - 4.00 k/uL [facility] Lymphocytes/100 WBC (Bld) 18.0 % [facility] MCH (RBC) [Entitic mass] 32.5 pg 26.0 - 34.0 pg [facility] MCHC (RBC) [Mass/Vol] 31.3 g/dL 30.5 - 36.0 g/dL [facility] MCV (RBC) [Entitic vol] 103.9 fL High 80.0 - 100.0 fL [facility] Monocytes (Bld) [#/Vol] 0.89 10*3/uL High <0.87 k/uL [facility] Monocytes/100 WBC (Bld) 11.0 % [facility] Neutrophils (Bld) [#/Vol] 5.56 10*3/uL 1.45 - 7.50 k/uL [facility] Neutrophils/100 WBC (Bld) 68.8 % [facility] Nucleated RBC (Bld) [#/Vol] <0.01 k/uL [facility] Nucleated RBC/100 WBC (Bld) [Ratio] 0.0 /100 WBC [facility] Platelet mean volume (Bld) [Entitic vol] 9.5 fL 9.0 - 12.7 fL [facility] Platelets (Bld) [#/Vol] 363 10*3/uL 150 - 400 k/uL [facility] RBC (Bld) [#/Vol] 2.83 10*6/uL Low 4.20 - 6.0 0 m/uL [facility] WBC (Bld) [#/Vol] 8.09 10*3/uL 3.70 - 11.00 k/uL [facility] metabolic 2000 panelon 04-20-2022 Albumin [Mass/Vol] 3.9 g/dL 3.9 - 4.9 g/dL [facility] ALP [Catalytic activity/Vol] 138 U/L High 38 - 113 U/L [facility] ALT [Catalytic activity/Vol] 18 U/L 10 - 54 U/L [facility] Anion gap [Moles/Vol] 8 mmol/L Low 9 - 18 mmol/L [facility] AST [Catalytic activity/Vol] 18 U/L 14 - 40 U/L [facility] Bilirubin [Mass/Vol] 0.7 mg/dL 0.2 - 1 .3 mg/dL [facility] Calcium [Mass/Vol] 9.7 mg/dL 8.5 - 10. 2 mg/dL [facility] Chloride [Moles/Vol] 103 mmol/L 97 - 10 5 mmol/L [facility] [facility] CO2 [Moles/Vol] 24 mmol/L 22 - 30 mmol/L [facility] Creatinine [Mass/Vol] 0.73 mg/dL 0.73 - 1.22 mg/dL [facility] Estimated Glomerular Filtration Rate 98 mL/min/1.73m >=60 mL/min/1.73 m [facility] Glucose [Mass/Vol] 107 mg/dL High 74 - 99 mg/dL [facility] Potassium [Moles/Vol] 4.8 mmol/L 3.7 - 5.1 mmol/L [facility] Protein [Mass/Vol] 6.6 g/dL 6.3 - 8.0 g/dL [facility] Sodium [Moles/Vol] 135 mmol/L Low 136 - 144 mmol/L [facility] Urea nitrogen [Mass/Vol] 16 mg/dL 9 - 24 mg/dL [facility] metabolic 2000 panelon 11-16-2022 Albumin [Mass/Vol] 4.1 g/dL 3.9 - 4.9 g/dL [facility] ALP [Catalytic activity/Vol] 155 U/L High 38 - 113 U/L [facility] ALT [Catalytic activity/Vol] 38 U/L 10 - 54 U/L [facility] Anion gap [Moles/Vol] 8 mmol/L Low 9 - 18 mmol/L [facility] AST [Catalytic activity/Vol] 32 U/L 14 - 40 U/L [facility] Bilirubin [Mass/Vol] 0.7 mg/dL 0.2 - 1 .3 mg/dL [facility] Calcium [Mass/Vol] 9.9 mg/dL 8.5 - 10. 2 mg/dL [facility] Chloride [Moles/Vol] 106 mmol/L High 97 - 10 5 mmol/L [facility] CO2 [Moles/Vol] 26 mmol/L 22 - 30 mmol/L [facility] Creatinine [Mass/Vol] 0.74 mg/dL 0.73 - 1.22 mg/dL [facility] Estimated Glomerular Filtration Rate 97 mL/min/1.73m >=60 mL/min/1.73 m [facility] Glucose [Mass/Vol] 160 mg/dL High 74 - 99 mg/dL [facility] Potassium [Moles/Vol] 5.0 mmol/L 3.7 - 5.1 mmol/L [facility] Protein [Mass/Vol] 6.8 g/dL 6.3 - 8.0 g/dL [facility] Sodium [Moles/Vol] 140 mmol/L 136 - 144 mmol/L [facility] Urea nitrogen [Mass/Vol] 14 mg/dL 9 - 24 mg/dL [facility] CBC W Auto Differential pane l (Bld)on 03-16-2022 Basophils (Bld) [#/Vol] 0.04 10*3/uL <0.11 k/uL [facility] Basophils/100 WBC (Bld) 1.1 % [facility] Differential cell count method Nom (Bld) Auto [facility] Eosinophils (Bld) [#/Vol] 0.04 10*3/uL <0.46 k/uL [facility] Eosinophils/100 WBC (Bld) 1.1 % [facility] Erythrocyte distribution width (RBC) [Ratio] 14.4 % 11.5 - 15.0 % [facility] Hematocrit (Bld) [Volume fraction] 25.4 % Low 39.0 - 51.0 % [facility] Hemoglobin (Bld) [Mass/Vol] 8.5 g/dL Low 13.0 - 17.0 g/dL [facility] Immature granulocytes (Bld) [#/Vol] <0.10 k/uL [facility] Immature granulocytes/100 WBC (Bld) 0.5 % [facility] Lymphocytes (Bld) [#/Vol] 1.38 10*3/uL 1.00 - 4.00 k/uL [facility] Lymphocytes/100 WBC (Bld) 37.9 % [facility] MCH (RBC) [Entitic mass] 33.7 pg 26.0 - 34.0 pg [facility] MCHC (RBC) [Mass/Vol] 33.5 g/dL 30.5 - 36.0 g/dL [facility] MCV (RBC) [Entitic vol] 100.8 fL High 80.0 - 100.0 fL [facility] Monocytes (Bld) [#/Vol] 0.28 10*3/uL <0.87 k/uL [facility] Monocytes/100 WBC (Bld) 7.7 % [facility] Neutrophils (Bld) [#/Vol] 1.88 10*3/uL 1.45 - 7.50 k/uL [facility] Neutrophils/100 WBC (Bld) 51.7 % [facility] Nucleated RBC (Bld) [#/Vol] <0.01 k/uL [facility] Nucleated RBC/100 WBC (Bld) [Ratio] 0.0 /100 WBC [facility] Platelet mean volume (Bld) [Entitic vol] 10.1 fL 9.0 - 12.7 fL [facility] Platelets (Bld) [#/Vol] 174 10*3/uL 150 - 400 k/uL [facility] RBC (Bld) [#/Vol] 2.52 10*6/uL Low 4.20 - 6.0 0 m/uL [facility] WBC (Bld) [#/Vol] 3.64 10*3/uL Low 3.70 - 11.00 k/uL [facility] Comprehensive metabolic 2000 panelon 03-16-2022 Albumin [Mass/Vol] 4.0 g/dL 3.9 - 4.9 g/dL [facility] ALP [Catalytic activity/Vol] 153 U/L High 38 - 113 U/L [facility] ALT [Catalytic activity/Vol] 27 U/L 10 - 54 U/L [facility] Anion gap [Moles/Vol] 5 mmol/L Low 9 - 18 mmol/L [facility] AST [Catalytic activity/Vol] 22 U/L 14 - 40 U/L [facility] Bilirubin [Mass/Vol] 1.0 mg/dL 0.2 - 1 .3 mg/dL [facility] Calcium [Mass/Vol] 10.0 mg/dL 8.5 - 10. 2 mg/dL [facility] Chloride [Moles/Vol] 103 mmol/L 97 - 10 5 mmol/L [facility] CO2 [Moles/Vol] 26 mmol/L 22 - 30 mmol/L [facility] Creatinine [Mass/Vol] 0.73 mg/dL 0.73 - 1.22 mg/dL [facility] Estimated Glomerular Filtration Rate 98 mL/min/1.73m >=60 mL/min/1.73 m [facility] Glucose [Mass/Vol] 125 mg/dL High 74 - 99 mg/dL [facility] Potassium [Moles/Vol] 4.5 mmol/L 3.7 - 5.1 mmol/L [facility] Protein [Mass/Vol] 6.7 g/dL 6.3 - 8.0 g/dL [facility] Sodium [Moles/Vol] 134 mmol/L Low 136 - 144 mmol/L [facility] Urea nitrogen [Mass/Vol] 16 mg/dL 9 - 24 mg/dL [facility] CA 19-9 BLDon 03-08-2022 Cancer Ag 19-9 Qn 442.0 [arb'U]/mL High NINF - 36.0 U/mL [facility] Comment on above: Cancer antigen 19-9 test is used as an aid in monitoring response to treatment or recurrence in patients with established pancreatic, hepatobiliary, or gastrointestinal malignancies. Clinical correlation is required. The CA 19-9 Antigen test was performed using the [employer] DXI paramagnetic particle chemiluminescent immunoassay method. Results obtained with different assay methods or kits cannot be used interchangeably. Cancer Ag 19-9 Qnon 03-08-20 Interpretation and review of laboratory results Abnormal [facility] CBC W Auto Differential pane l (Bld)on 03-07-2022 Basophils (Bld) [#/Vol] 0.03 10*3/uL [facility] Basophils/100 WBC (Bld) 0.3 % [facility] Differential cell count method Nom (Bld) Auto [facility] Eosinophils (Bld) [#/Vol] 0.09 10*3/uL [facility] Eosinophils/100 WBC (Bld) 0.8 % [facility] Erythrocyte distribution width (RBC) [Ratio] 14.6 % 11.5 - 15.0 % [facility] Hematocrit (Bld) [Volume fraction] 33.4 % Low 39.0 - 51.0 % [facility] Hemoglobin (Bld) [Mass/Vol] 11.0 g/dL Low 13.0 - 17.0 g/dL [facility] Immature granulocytes (Bld) [#/Vol] 0.03 10*3/uL [facility] Immature granulocytes/100 WBC (Bld) 0.3 % [facility] Interpretation and review of laboratory results Abnormal [facility] Lymphocytes (Bld) [#/Vol] 1.76 10*3/uL [facility] Lymphocytes/100 WBC (Bld) 16.4 % [facility] MCH (RBC) [Entitic mass] 33.1 pg 26.0 - 34.0 pg [facility] MCHC (RBC) [Mass/Vol] 32.9 g/dL 30.5 - 36.0 g/dL [facility] MCV (RBC) [Entitic vol] 100.6 fL High 80.0 - 100.0 fL [facility] Monocytes (Bld) [#/Vol] 0.69 10*3/uL [facility] Monocytes/100 WBC (Bld) 6.4 % [facility] Neutrophils (Bld) [#/Vol] 8.16 10*3/uL High [facility] Neutrophils/100 WBC (Bld) 75.8 % [facility] Nucleated RBC (Bld) [#/Vol] [facility] Nucleated RBC/100 WBC (Bld) [Ratio] 0.0 % /100 WBC [facility] Platelet mean volume (Bld) [Entitic vol] 9.5 fL 9.0 - 12.7 fL [facility] Platelets (Bld) [#/Vol] 257 10*3/uL [facility] RBC (Bld) [#/Vol] 3.32 10*6/uL Low 4.20 - 6.0 0 m/uL [facility] WBC (Bld) [#/Vol] 10.76 10*3/uL [facility] This is an appended report. These results have been appended to a previously verified report. [facility] CT Chest W contrast Kodi IMPRESSION: 1. [...] any questions regarding this interpretation, please call [phone]. If you are unable to reach us at the number above, please feel free to contact [facility]iology at [phone]. DIVISION OF RADIOLOGY * * *Final Report* * * DATE OF EXAM: Mar 07 2022 11:25AM [facility] 0539 - CT CHEST W IVCON / [...] on recently performed CT of the abdomen. Delivery Sales Worker (topogram) images: No additional findings. DIVISION OF RADIOLOGY Provider, [facility] - 03/07/2022 * * *Final Report* * * DATE OF EXAM: Mar 07 2022 11:25AM [facility] 0539 - CT CHEST W IVCON / [...] on recently performed CT of the abdomen. Delivery Sales Worker (topogram) images: No additional findings. IMPRESSION IMPRESSION: [...] any questions regarding this interpretation, please call [phone]. If you are unable to reach us at the number above, please feel free to contact [facility]iology at [phone]. [facility] Radiology Study observation (narrative) [facility] CT Chest W contrast IVOrdere d By: Ccf Provider on 03-07-2022 [facility] Comprehensive metabolic 2000 panelOrdered By: Je Elias on 03-07-2022 Albumin [Mass/Vol] 4.1 g/dL 3.9 - 4.9 g/dL [facility] ALP [Catalytic activity/Vol] 160 U/L High 38 - 113 U/L [facility] ALT [Catalytic activity/Vol] 20 U/L 10 - 54 U/L [facility] Anion gap [Moles/Vol] 8 mmol/L Low 9 - 18 mmol/L [facility] AST [Catalytic activity/Vol] 20 U/L 14 - 40 U/L [facility] Bilirubin [Mass/Vol] 1.1 mg/dL 0.2 - 1 .3 mg/dL [facility] Calcium [Mass/Vol] 10.1 mg/dL 8.5 - 10. 2 mg/dL [facility] Chloride [Moles/Vol] 102 mmol/L 97 - 10 5 mmol/L [facility] CO2 [Moles/Vol] 26 mmol/L 22 - 30 mmol/L [facility] Creatinine [Mass/Vol] 0.72 mg/dL Low 0.73 - 1.22 mg/dL [facility] GFR/1.73 sq M.predicted among non-blacks MDRD (S/P/Bld) [Vol rate/Area] 98 mL/min/{1.73_m2} - PINF [facility] Comment on above: Estimated Glomerular [...] 113 mg/dL High 74 - 99 mg/dL [facility] Comment on above: The [place] [employer] (ADA) provides guidance for [...] Standards of Medical Care in Diabetes 2016, [place] [employer]. Diabetes Care. 2016.39(Suppl 1). Interpretation and review of laboratory results Abnormal [facility] Potassium [Moles/Vol] 4.6 mmol/L 3.7 - 5.1 mmol/L [facility] Protein [Mass/Vol] 7.0 g/dL 6.3 - 8.0 g/dL [facility] Sodium [Moles/Vol] 136 mmol/L 136 - 144 mmol/L [facility] Urea nitrogen [Mass/Vol] 18 mg/dL 9 - 24 mg/dL [facility] CREATININE BLDOrdered By: Marianne Bee on 02-15-2022 Creatinine [Mass/Vol] 0.74 mg/dL 0.73 - 1.22 mg/dL [facility] GFR/1.73 sq M.predicted among non-blacks MDRD (S/P/Bld) [Vol rate/Area] 97 mL/min/{1.73_m2} - PINF [facility] Comment on above: Estimated Glomerular [...] Interpretation and review of laboratory results Normal [facility] CT Pancreas W contrast Kodi 02-15-2022 IMPRESSION: [...] any questions regarding this interpretation, please call [phone]. If you are unable to reach us at the number above, please feel free to contact [facility] eRadiology at [phone]. DIVISION OF RADIOLOGY * * *Final Report* * * DATE OF EXAM: Feb 15 2022 11:30AM [facility] 0552 - CT PANCREAS W IVCON / [...] size of central mesenteric and retroperitoneal lymphadenopathy. [place] lymph nodes are detailed as follows on [...] secondary to marrow reconversion. Lower thorax: Unremarkable. Delivery Sales Worker (topogram) images: No additional findings. DIVISION OF RADIOLOGY Provider, [facility] - 02/15/2022 * * *Final Report* * * DATE OF EXAM: Feb 15 2022 11:30AM [facility] 0552 - CT PANCREAS W IVCON / [...] size of central mesenteric and retroperitoneal lymphadenopathy. [place] lymph nodes are detailed as follows on [...] secondary to marrow reconversion. Lower thorax: Unremarkable. Delivery Sales Worker (topogram) images: No additional findings. IMPRESSION IMPRESSION: [...] any questions regarding this interpretation, please call [phone]. If you are unable to reach us at the number above, please feel free to contact [facility]iology at [phone]. [facility] Radiology Study observation (narrative) [facility] CT Pancreas W contrast IVOrd ered By: [facility]cf Provider on 02-15-2022 [facility] PSA TOTAL AND %FREEon 2021 % FREE PSA 22 % Normal [facility] Comment on above: Result Comment: INTE RPRETIVE INFORMATION: Prostate Specific Antigen, Free Percentage [employer]ensus uses the TCAS Online Free PSA electrochemiluminescent immunoassay method in conjunction [...] prostate cancer in individual patients. Performed By: [facility] [address] [place] [id number] Electrical Linesworker: Marnie Diaz MD Performed By: #### P SAFT #### [facility] [address] [place] [address] PSA,FREE 0.4 ng/mL Normal [facility] Comment on above: Performed By: #### P SAFT #### [facility] [address] [place] [address] PSA,TOTAL 1.8 ng/mL Normal 0.0-4.0 [facility] [...] carcinoma. Performed By: #### P SAFT #### [facility] [address] [place] [address] RESPIRATORY PANEL PLUSon Adenovirus Not detected Normal NOT DETECTED [facility] Comment on above: Performed By: #### R SPLUS #### [facility] [address] [place] [address] Dr. Karen So Parapertusis Not detected Normal NOT DETECTED [facility] Comment on above: Performed By: #### R SPLUS #### [facility] [address] [place] [address] Dr. Karen Carter. Pertussis Not detected Normal NOT DETECTED [facility] Comment on above: Performed By: #### R SPLUS #### [facility] [address] [place] [address] Dr. Karen Connolly Chlamydia Pneumoniae Not detected Normal NOT DETECTED [facility] Comment on above: Performed By: #### R SPLUS #### [facility] [address] [place] [address] Dr. Karen Connolly Coronavirus 229E Not detected Normal NOT DETECTED [facility] Comment on above: Performed By: #### R SPLUS #### [facility] [address] [place] [address] Dr. Karen Connolly Coronavirus HKU1 Not detected Normal NOT DETECTED [facility] Comment on above: Performed By: #### R SPLUS #### [facility] [address] [place] [address] Dr. Karen Connolly Coronavirus NL63 Not detected Normal NOT DETECTED [facility] Comment on above: Performed By: #### R SPLUS #### [facility] [address] [place] [address] Dr. Karen Connolly Coronavirus OC43 Not detected Normal NOT DETECTED [facility] Comment on above: Performed By: #### R SPLUS #### [facility] [address] [place] [address] Dr. Karen Connolly Influenza A H1 2008 Not detected Normal NOT DETECTED [facility] Comment on above: Performed By: #### R SPLUS #### [facility] [address] [place] [address] Dr. Karen Connolly Influenza B Not detected Normal NOT DETECTED [facility] Comment on above: Performed By: #### R SPLUS #### [facility] [address] [place] [address] Dr. Karen Connolly Metapneumovirus Not detected Normal NOT DETECTED [facility] Comment on above: Performed By: #### R SPLUS #### [facility] [address] [place] [address] Dr. Karen Connolly Mycoplas. Pneumoniae Not detected Normal NOT DETECTED [facility] Comment on above: Performed By: #### R SPLUS #### [facility] [address] [place] [address] Dr. Karen Connolly Parainfluenza 1 Not detected Normal NOT DETECTED [facility] Comment on above: Performed By: #### R SPLUS #### [facility] [address] [place] [address] Dr. Karen Connolly Parainfluenza 2 Not detected Normal NOT DETECTED [facility] Comment on above: Performed By: #### R SPLUS #### [facility] [address] [place] [address] Dr. Karen Connolly Parainfluenza 3 Not detected Normal NOT DETECTED [facility] Comment on above: Performed By: #### R SPLUS #### [facility] [address] [place] [address] Dr. Karen Connolly Parainfluenza 4 Not detected Normal NOT DETECTED [facility] Comment on above: Performed By: #### R SPLUS #### [facility] [address] [place] [address] Dr. Karen Connolly Rhino/Enterovirus Not detected Normal NOT DETECTED [facility] Comment on above: Performed By: #### R SPLUS #### [facility] [address] [place] [address] Dr. Karen Connolly RP2 Header 1 RESPIRATORY PANEL: VIRUSES Normal [facility] Comment on above: Performed By: #### R SPLUS #### [facility] [address] [place] [address] Dr. Karen Connolly RP2 Header 2 RESPIRATORY PANEL: BACTERIA Normal [facility] Comment on above: Performed By: #### R SPLUS #### [facility] [address] [place] [address] Dr. Karen Connolly RSV Not detected Normal NOT DETECTED [facility] Comment on above: Performed By: #### R SPLUS #### [facility] [address] [place] [address] Dr. Karen Connolly SARS-CoV-2 (COVID-19) RNA MIRTHA+probe Ql (Unsp spec) Detected Critically abnormal NOT DETECTED [facility] Comment on above: Performed By: #### R SPLUS #### [facility] [address] [place] [address] Dr. Karen Connolly CBC AUTO DIFFon 03-11-2021 BASO # 0.0 103/ul Normal 0.0-0.1 [facility] Comment on above: Performed By: #### C BC #### [facility] [address] [place] [address] Dr. Karen Connolly Basophils/100 WBC (Bld) 0.4 % Normal 0.2-2.0 [facility] Comment on above: Performed By: #### C BC #### [facility] [address] [place] [address] Dr. Karen Connolly EO # 0.1 103/ul Normal 0.0-0.7 [facility] Comment on above: Performed By: #### C BC #### [facility] [address] [place] [address] Dr. Karen Connolly Eosinophils/100 WBC (Bld) 1.4 % Normal 0.9-7.0 [facility] Comment on above: Performed By: #### C BC #### [facility] [address] [place] [address] Dr. Karen Connolly Erythrocyte distribution width (RBC) [Ratio] 15.0 % Normal 11.0-15.0 [facility] Comment on above: Performed By: #### C BC #### [facility] [address] [place] [address] Dr. Karen Connolly Hematocrit (Bld) [Volume fraction] 31.7 % Critically low 42.0-54.0 [facility] Comment on above: Performed By: #### C BC #### [facility] [address] [place] [address] Dr. Karen Connolly Hemoglobin (Bld) [Mass/Vol] 10.0 g/dL Critically low 14.0-18.0 [facility] Comment on above: Performed By: #### C BC #### [facility] [address] [place] [address] Dr. Karen Connolly IG # 0.02 10e3/ul Normal 0.00-0.03 [facility] Comment on above: Performed By: #### C BC #### [facility] [address] [place] [address] Dr. Karen Connolly IG % 0.2 % Normal 0.0-0.5 [facility] Comment on above: Performed By: #### C BC #### [facility] [address] [place] [address] Dr. Karen Connolly LYMPH # 2.1 103/ul Normal 1.2-3.8 [facility] Comment on above: Performed By: #### C BC #### [facility] [address] [place] [address] Dr. Karen Connolly Lymphocytes/100 WBC (Bld) 26.3 % Normal 20.5-60.0 [facility] Comment on above: Performed By: #### C BC #### [facility] [address] [place] [address] Dr. Karen Connolly MANUAL DIFF REQ NO Normal [facility] Comment on above: Performed By: #### C BC #### [facility] [address] [place] [address] Dr. Karen Connolly MCH (RBC) [Entitic mass] 30.6 pg Normal 25.9-34.0 [facility] Comment on above: Performed By: #### C BC #### [facility] [address] [place] [address] Dr. Karen Connolly MCHC (RBC) [Mass/Vol] 31.5 g/dL Normal 29.9-35.2 [facility] Comment on above: Performed By: #### C BC #### [facility] [address] [place] [address] Dr. Karen Connolly MCV (RBC) [Entitic vol] 96.9 fL Critically high 80.0-94.0 [facility] Comment on above: Performed By: #### C BC #### [facility] [address] [place] [address] Dr. Karen Connolly MONO # 0.5 103/ul Normal 0.3-0.8 [facility] Comment on above: Performed By: #### C BC #### [facility] [address] [place] [address] Dr. Karen Connolly Monocytes/100 WBC (Bld) 6.6 % Normal 1.7-12.0 [facility] Comment on above: Performed By: #### C BC #### [facility] [address] [place] [address] Dr. Karen Connolly NEUT # 5.2 103/ul Normal 1.4-6.5 [facility] Comment on above: Performed By: #### C BC #### [facility] [address] [place] [address] Dr. Karen Connolly Neutrophils/100 WBC (Bld) 65.1 % Normal 43.0-75.0 [facility] Comment on above: Performed By: #### C BC #### [facility] [address] [place] [address] Dr. Karen Connolly Platelet mean volume (Bld) [Entitic vol] 10.4 fL Normal 9.5-13.5 [facility] Comment on above: Performed By: #### C BC #### [facility] [address] [place] [address] Dr. Karen Connolly PLT 280 103/ul Normal 150-450 [facility] Comment on above: Performed By: #### C BC #### [facility] [address] [place] [address] Dr. Karen Connolly RBC 3.27 106/ul Critically low 4.70-6.10 [facility] Comment on above: Performed By: #### C BC #### [facility] [address] [place] [address] Dr. Karen Connolly WBC 8.0 103/ul Normal 4.0-11.0 [facility] Comment on above: Performed By: #### C BC #### [facility] [address] [place] [address] Dr. Karen Connolly CBC AUTO DIFFon 03-04-2021 BASO # 0.0 103/ul Normal 0.0-0.1 [facility] Comment on above: Performed By: #### C BC #### [facility] [address] [place] [address] Dr. Karen Connolly Basophils/100 WBC (Bld) 0.4 % Normal 0.2-2.0 [facility] Comment on above: Performed By: #### C BC #### [facility] [address] [place] [address] Dr. Karen Connolly EO # 0.1 103/ul Normal 0.0-0.7 [facility] Comment on above: Performed By: #### C BC #### [facility] [address] [place] [address] Dr. Karen Connolly Eosinophils/100 WBC (Bld) 1.2 % Normal 0.9-7.0 [facility] Comment on above: Performed By: #### C BC #### [facility] [address] [place] [address] Dr. Karen Connolly Erythrocyte distribution width (RBC) [Ratio] 15.4 % Critically high 11.0-15.0 [facility] Comment on above: Performed By: #### C BC #### [facility] [address] [place] [address] Dr. Karen Connolly Hematocrit (Bld) [Volume fraction] 29.7 % Critically low 42.0-54.0 [facility] Comment on above: Performed By: #### C BC #### [facility] [address] [place] [address] Dr. Karen Connolly Hemoglobin (Bld) [Mass/Vol] 9.3 g/dL Critically low 14.0-18.0 [facility] Comment on above: Performed By: #### C BC #### [facility] [address] [place] [address] Dr. Karen Connolly IG # 0.01 10e3/ul Normal 0.00-0.03 [facility] Comment on above: Performed By: #### C BC #### [facility] [address] [place] [address] Dr. Karen Connolly IG % 0.2 % Normal 0.0-0.5 [facility] Comment on above: Performed By: #### C BC #### [facility] [address] [place] [address] Dr. Karen Connolly LYMPH # 1.4 103/ul Normal 1.2-3.8 [facility] Comment on above: Performed By: #### C BC #### [facility] [address] [place] [address] Dr. Karen Connolly Lymphocytes/100 WBC (Bld) 24.7 % Normal 20.5-60.0 [facility] Comment on above: Performed By: #### C BC #### [facility] [address] [place] [address] Dr. Karen Connolly MANUAL DIFF REQ NO Normal [facility] Comment on above: Performed By: #### C BC #### [facility] [address] [place] [address] Dr. Karen Connolly MCH (RBC) [Entitic mass] 30.1 pg Normal 25.9-34.0 [facility] Comment on above: Performed By: #### C BC #### [facility] [address] [place] [address] Dr. Karen Connolly MCHC (RBC) [Mass/Vol] 31.3 g/dL Normal 29.9-35.2 [facility] Comment on above: Performed By: #### C BC #### [facility] [address] [place] [address] Dr. Karen Connolly MCV (RBC) [Entitic vol] 96.1 fL Critically high 80.0-94.0 [facility] Comment on above: Performed By: #### C BC #### [facility] [address] [place] [address] Dr. Karen Connolly MONO # 0.6 103/ul Normal 0.3-0.8 [facility] Comment on above: Performed By: #### C BC #### [facility] [address] [place] [address] Dr. Karen Connolly Monocytes/100 WBC (Bld) 10.6 % Normal 1.7-12.0 [facility] Comment on above: Performed By: #### C BC #### [facility] [address] [place] [address] Dr. Karen Connolly NEUT # 3.6 103/ul Normal 1.4-6.5 [facility] Comment on above: Performed By: #### C BC #### [facility] [address] [place] [address] Dr. Karen Connolly Neutrophils/100 WBC (Bld) 62.9 % Normal 43.0-75.0 [facility] Comment on above: Performed By: #### C BC #### [facility] [address] [place] [address] Dr. Karen Connolly Platelet mean volume (Bld) [Entitic vol] 10.0 fL Normal 9.5-13.5 [facility] Comment on above: Performed By: #### C BC #### [facility] [address] [place] [address] Dr. Karen Connolly PLT 258 103/ul Normal 150-450 [facility] Comment on above: Performed By: #### C BC #### [facility] [address] [place] [address] Dr. Karen Connolly RBC 3.09 106/ul Critically low 4.70-6.10 [facility] Comment on above: Performed By: #### C BC #### [facility] [address] [place] [address] Dr. Karen Connolly WBC 5.7 103/ul Normal 4.0-11.0 [facility] Comment on above: Performed By: #### C BC #### [facility] [address] [place] [address] Dr. Karen Connolly CBC AUTO DIFFon 02-25-2021 BASO # 0.1 103/ul Normal 0.0-0.1 [facility] Comment on above: Performed By: #### C BC #### [facility] [address] [place] [address] Dr. Karen Connolly Basophils/100 WBC (Bld) 0.8 % Normal 0.2-2.0 [facility] Comment on above: Performed By: #### C BC #### [facility] [address] [place] [address] Dr. Karen Connolly EO # 0.9 103/ul Critically high 0.0-0.7 [facility] Comment on above: Performed By: #### C BC #### [facility] [address] [place] [address] Dr. Karen Connolly Eosinophils/100 WBC (Bld) 9.7 % Critically high 0.9-7.0 [facility] Comment on above: Performed By: #### C BC #### [facility] [address] [place] [address] Dr. Karen Connolly Erythrocyte distribution width (RBC) [Ratio] 15.1 % Critically high 11.0-15.0 [facility] Comment on above: Performed By: #### C BC #### [facility] [address] [place] [address] Dr. Karen Connolly Hematocrit (Bld) [Volume fraction] 29.3 % Critically low 42.0-54.0 [facility] Comment on above: Performed By: #### C BC #### [facility] [address] [place] [address] Dr. Karen Connolly Hemoglobin (Bld) [Mass/Vol] 9.3 g/dL Critically low 14.0-18.0 [facility] Comment on above: Performed By: #### C BC #### [facility] [address] [place] [address] Dr. Karen Connolly IG # 0.02 10e3/ul Normal 0.00-0.03 [facility] Comment on above: Performed By: #### C BC #### [facility] [address] [place] [address] Dr. Karen Connolly IG % 0.2 % Normal 0.0-0.5 [facility] Comment on above: Performed By: #### C BC #### [facility] [address] [place] [address] Dr. Karen Connolly LYMPH # 2.2 103/ul Normal 1.2-3.8 [facility] Comment on above: Performed By: #### C BC #### [facility] [address] [place] [address] Dr. Karen Connolly Lymphocytes/100 WBC (Bld) 24.3 % Normal 20.5-60.0 [facility] Comment on above: Performed By: #### C BC #### [facility] [address] [place] [address] Dr. Karen Connolly MANUAL DIFF REQ NO Normal [facility] Comment on above: Performed By: #### C BC #### [facility] [address] [place] [address] Dr. Karen Connolly MCH (RBC) [Entitic mass] 30.7 pg Normal 25.9-34.0 [facility] Comment on above: Performed By: #### C BC #### [facility] [address] [address] [address] Karen Connolly MCHC (RBC) [Mass/Vol] 31.7 g/dL Normal 29.9-35.2 [facility] Comment on above: Performed By: #### C BC #### [facility] [address] [place] [address] Dr. Karen Connolly MCV (RBC) [Entitic vol] 96.7 fL Critically high 80.0-94.0 [facility] Comment on above: Performed By: #### C BC #### [facility] [address] [place] [address] Dr. Karen Connolly MONO # 0.6 103/ul Normal 0.3-0.8 [facility] Comment on above: Performed By: #### C BC #### [facility] [address] [place] [address] Dr. Karen Connolly Monocytes/100 WBC (Bld) 6.9 % Normal 1.7-12.0 [facility] Comment on above: Performed By: #### C BC #### [facility] [address] [place] [address] Dr. Karen Connolly NEUT # 5.3 103/ul Normal 1.4-6.5 [facility] Comment on above: Performed By: #### C BC #### [facility] [address] [place] [address] Dr. Karen Connolly Neutrophils/100 WBC (Bld) 58.1 % Normal 43.0-75.0 [facility] Comment on above: Performed By: #### C BC #### [facility] [address] [place] [address] Dr. Karen Connolly Platelet mean volume (Bld) [Entitic vol] 9.6 fL Normal 9.5-13.5 [facility] Comment on above: Performed By: #### C BC #### [facility] [address] [place], [place] [address] Dr. Karen Connolly PLT 317 103/ul Normal 150-450 [facility] Comment on above: Performed By: #### C BC #### [facility] [address] [address] [address] Karen Connolly RBC 3.03 106/ul Critically low 4.70-6.10 [facility] Comment on above: Performed By: #### C BC #### [facility] [id number] Karen Connolly WBC 9.0 103/ul Normal 4.0-11.0 [facility] Comment on above: Performed By: #### C BC #### [facility] [address] [address] [address] Karen Connolly Ambulatory Clinical Summaryo n 08-17-2020 Ambulatory Clinical Summary {[id number] Normal [facility] Patient Educationon 08-18-19 21 Patient Education [...] Document Reviewed: 01/11/2008 ExitCare? Patient Information ?2013 [employer]. [facility] Urology Office/Clinic Noteon 08-17-2020 Urology Office/Clinic [...] With When Contact Information GERI GODWIN, Billy Jordan [address] [place] [address] [place] [address]- [phone] Additional Instructions: 6mos. kub Patient Education Benign [...] Protein Urine Dipstick: Negative (08/17/20 14:35:00) Specific [place] Urine Dipstick: 1.025 (08/17/20 14:35:00) Urine Appearan (more content not included)... Normal [facility] Comment on above: Result Comment: Elec tronically Signed By: Billy NEVAREZ MD\.br\Date and Time Signed: 08/17/20 15:19 EDT\.br\Electronically Co-Signed By: Eufemia Gomes MA\.br\Date and Time Co-Signed: 08/17/20 15:18 EDT Lab Reportson 05-06-2020 Lab Reports [id number] Normal [facility] CBC Auto Differentialon 03-23 Basophils (Bld) [#/Vol] 0.04 10*3/uL [place] Basophils/100 WBC (Bld) 1 % 0 - 2 % [place] Differential Type NOT REPORTED [place] Eosinophils (Bld) [#/Vol] 0.05 10*3/uL [place] Eosinophils/100 WBC (Bld) 1 % 1 - 4 % [place] Erythrocyte distribution width (RBC) [Ratio] 19.1 % High 11.8 - 14.4 % [place] Hematocrit (Bld) [Volume fraction] 25.6 % Low 40.7 - 50.3 % [place] Hemoglobin (Bld) [Mass/Vol] 7.7 g/dL Low 13 - 17 g/dL [place] Immature granulocytes (Bld) [#/Vol] 0.05 10*3/uL [place] Immature granulocytes (Bld) [#/Vol] 1 % High 0 [place] Interpretation and review of laboratory results Abnormal [place] Lymphocytes (Bld) [#/Vol] 1.97 10*3/uL [place] Lymphocytes/100 WBC (Bld) 29 % 24 - 43 % [place] MCH (RBC) [Entitic mass] 26.7 pg 25.2 - 33.5 pg [place] MCHC (RBC) [Mass/Vol] 30.1 g/dL 28.4 - 34.8 g/dL [place] MCV (RBC) [Entitic vol] 88.9 fL 82.6 - 102.9 fL [place] Monocytes (Bld) [#/Vol] 0.56 10*3/uL [place] Monocytes/100 WBC (Bld) 8 % 3 - 12 % [place] Platelet mean volume (Bld) [Entitic vol] 8.6 fL 8.1 - 13.5 fL [place] Platelets (Bld) [#/Vol] NOT REPORTED [place] Platelets (Bld) [#/Vol] 474 10*3/uL [place] RBC (Bld) [#/Vol] 2.88 10*6/uL Low 4.21 - 5.7 7 m/uL [place] RBC morphology finding Nom (Bld) NOT REPORTED [place] Segmented neutrophils/100 WBC (Bld) 60 % 36 - 65 % [place] Segs Absolute 4.21 [place] WBC (Bld) [#/Vol] 0.0 10*3/uL 0.0 per 10 0 WBC [place] WBC (Bld) [#/Vol] 6.9 10*3/uL [place] WBC Morphology NOT REPORTED [place] CBC with Diffon 04-15-2020 Abs. Basophil 0.04 k/uL Normal 0.00-0.20 [facility] Comment on above: Performed By: #### C P, CDP #### [facility] [address] [place] [address] [employer]inguisher Repairer: Farhad Turner MD Abs.Imm.Granulocyte 0.05 k/uL Normal 0.00-0.30 [facility] Comment on above: Performed By: #### C P, CDP #### [facility] [address] [place] [address] [employer] Extinguisher Repairer: Farhad Turner MD Abs.Neutrophil (Seg) 4.21 k/uL Normal 1.50-8.10 [facility] Comment on above: Performed By: #### C P, CDP #### [facility] [address] [place], [place] [address] [employer]ingu[employer] Repairer: Farhad Turner MD Basophils/100 WBC (Bld) 1 % Normal 0-2 [facility] Comment on above: Performed By: #### C P, CDP #### [facility] [address] [place], [facility] [employer] Repairer: Farhad Turner MD Eosinophils (Bld) [#/Vol] 0.05 10*3/uL Normal 0.00-0.44 [facility] Comment on above: Performed By: #### C P, CDP #### [address], [place] [address] [employer]inguisher Repairer: Farhad Turner MD Eosinophils/100 WBC (Bld) 1 % Normal 1-4 [facility] Comment on above: Performed By: #### C P, CDP #### [address] [place], [facility] [employer]ingu[employer] Repairer: Farhad Turner MD Erythrocyte distribution width (RBC) [Ratio] 19.1 % High 11.8-14.4 [facility] Comment on above: Performed By: #### C P, CDP #### [address] [place], [place] [address] [employer] Extinguisher Repairer: Farhad Turner MD Hematocrit (Bld) [Volume fraction] 25.6 % Low 40.7-50.3 [facility] Comment on above: Performed By: #### C P, CDP #### [address] [place] [id number] [employer] Extinguisher Repairer: Farhad Turner MD Hemoglobin (Bld) [Mass/Vol] 7.7 g/dL Low 13.0-17.0 [facility] Comment on above: Performed By: #### C P, CDP #### [facility] [address] [place], [place] [id number] [employer] Repairer: Farhad Turner MD Immature granulocytes (Bld) [#/Vol] 1 % High 0 [facility] Comment on above: Performed By: #### C P, CDP #### [facility] [address] [place], [place] [id number] [employer]inguisher Repairer: Farhad Turner MD Lymphocytes (Bld) [#/Vol] 1.97 10*3/uL Normal 1.10-3.70 [facility] Comment on above: Performed By: #### C P, CDP #### [facility] [address] [place], [facility] [employer]inguisher Repairer: Farhad Turner MD Lymphocytes/100 WBC (Bld) 29 % Normal 24-43 [facility] Comment on above: Performed By: #### C P, CDP #### [address] [place], [facility]83 [employer] Extinguisher Repairer: Farhad Turner MD MCH (RBC) [Entitic mass] 26.7 pg Normal 25.2-33.5 [facility] Comment on above: Performed By: #### C P, CDP #### [address] [place], [place] [id number] [employer] Repairer: Farhad Turner MD MCHC (RBC) [Mass/Vol] 30.1 g/dL Normal 28.4-34.8 [facility] Comment on above: Performed By: #### C P, CDP #### [address], [facility]83 [employer] Extinguisher Repairer: Farhad Turner MD MCV (RBC) [Entitic vol] 88.9 fL Normal 82.6-102.9 [facility] Comment on above: Performed By: #### C P, CDP #### [facility] [address], [facility]83 [employer] Extinguisher Repairer: Farhad Turner MD Monocytes (Bld) [#/Vol] 0.56 10*3/uL Normal 0.10-1.20 [facility] Comment on above: Performed By: #### C P, CDP #### [facility] [address] [place], [place] [id number] [employer] Extinguisher Repairer: Farhad Turner MD Monocytes/100 WBC (Bld) 8 % Normal 3-12 [facility] Comment on above: Performed By: #### C P, CDP #### [facility] [address] [place] [address] [employer] Extinguisher Repairer: Farhad Turner MD Neutrophil (Seg) 60 % Normal 36-65 [facility] [place] Comment on above: Performed By: #### C P, CDP #### [facility] [address] [place] [address] [employer] Extinguisher Repairer: Farhad Turner MD NRBC Automated 0.0 per 100 WBC Normal 0.0 [facility] Comment on above: Performed By: #### C P, CDP #### [facility] [address] [place], [place] [address] [employer] Extinguisher Repairer: Farhad Turner MD Platelet mean volume (Bld) [Entitic vol] 8.6 fL Normal 8.1-13.5 [facility] Comment on above: Performed By: #### C P, CDP #### [facility] [address], [facility]83 [employer] Extinguisher Repairer: Farhad Turner MD Platelets (Bld) [#/Vol] 474 10*3/uL High 138-453 [facility] Comment on above: Performed By: #### C P, CDP #### [facility] [address] [place], [place] [id number] [employer] Extinguisher Repairer: Farhad Turner MD RBC (Bld) [#/Vol] 2.88 10*6/uL Low 4.21-5.77 [facility] Comment on above: Performed By: #### C P, CDP #### [facility] [address] [place] [address] [employer] Extinguisher Repairer: Farhad Turner MD WBC (Bld) [#/Vol] 6.9 10*3/uL Normal 3.5-11.3 [facility] Comment on above: Performed By: #### C P, CDP #### [facility] [address] [place], [place] [address] [employer] Extinguisher Repairer: Farhad Turner MD Auto Diff Performed NOT REPORTED Normal [facility] Comment on above: Performed By: #### C P, CDP #### [facility] [address] [place] [address] [employer] Extinguisher Repairer: Farhad Turner MD Platelets (Bld) [#/Vol] NOT REPORTED Normal [facility] Comment on above: Performed By: #### C P, CDP #### [facility] [address], [facility]83 [employer] Extinguisher Repairer: Farhad Turner MD RBC morphology finding Nom (Bld) NOT REPORTED Normal [facility] Comment on above: Performed By: #### C P, CDP #### [facility] [address] [place] [address] [employer] Extinguisher Repairer: Farhad Turner MD WBC Morphology NOT REPORTED Normal [facility] [place] Comment on above: Performed By: #### C P, CDP #### [facility] [address] [place], [facility]83 [employer] Extinguisher Repairer: Farhad Turner MD Comp Metabolic Profon 2019 (cont.) Normal [facility] Comment on above: Result Comment: Aver age GFR for 60-69 years old: 85 mL/min/1.73sq m Chronic Kidney Disease: <60 mL/min/1.73sq m Kidney failure: <15 mL/min/1.73sq m eGFR calculated using average adult body mass. Additional eGFR calculator available at: http://www.GroupZoom.Conkwest/multiple_crcl_2011.htm Performed By: #### C P, CDP #### [facility] [address] [place], [place] [id number] [employer] Extinguisher Repairer: Farhad Turner MD Albumin [Mass/Vol] 2.0 g/dL Low 3.5-5.2 [facility] Comment on above: Performed By: #### C P, CDP #### [facility] [address] [place], [place] [id number] [employer] Extinguisher Repairer: Farhad Turner MD Albumin/Globulin [Mass ratio] 0.5 {ratio} Low 1.0-2.5 [facility] Comment on above: Performed By: #### C P, CDP #### [facility] [address] [place], [place] [id number] [employer] Extinguisher Repairer: Farhad Turner MD Alkaline Phos 74 U/L Normal 40-129 [facility] Comment on above: Performed By: #### C P, CDP #### [facility] [address] [place], [place] [address]387483 [employer] Extinguisher Repairer: Farhad Turner MD ALT [Catalytic activity/Vol] 6 U/L Normal 5-41 [facility] Comment on above: Performed By: #### C P, CDP #### [facility] [address] [place] [address] [employer] Extinguisher Repairer: Farhad Turner MD Anion gap [Moles/Vol] 5 mmol/L Low 9-17 [facility] Comment on above: Performed By: #### C P, CDP #### [facility] [address] [place], [place] [id number] [employer] Extinguisher Repairer: Farhad Turner MD AST [Catalytic activity/Vol] 12 U/L Normal <40 [facility] Comment on above: Performed By: #### C P, CDP #### [facility] [address] [place], [place] [id number] [employer] Extinguisher Repairer: Farhad Turner MD Bilirubin Ql (U) 0.32 mg/dL Normal 0.3-1.2 [facility] [place] Comment on above: Performed By: #### C P, CDP #### [facility] [address] [place], [place] [id number] [employer] Extinguisher Repairer: Farhad Turner MD BUN/CRE Ratio 21 High 9-20 [facility] Comment on above: Performed By: #### C P, CDP #### [facility] [address] [place] [address] [employer] Extinguisher Repairer: Farhad Turner MD Calcium [Mass/Vol] 9.4 mg/dL Normal 8.6-10.4 [facility] Comment on above: Performed By: #### C P, CDP #### [facility] [address] [place], [place] [id number] [employer] Extinguisher Repairer: Farhad Turner MD Chloride [Moles/Vol] 101 mmol/L Normal 98-107 [facility] Comment on above: Performed By: #### C P, CDP #### [facility] [address] [place], [place] [id number] [employer] Extinguisher Repairer: Farhad Turner MD CO2 [Moles/Vol] 30 mmol/L Normal 20-31 [facility] Comment on above: Performed By: #### C P, CDP #### [facility] [address] [place] [address] [employer] Extinguisher Repairer: Farhad Turner MD Creatinine [Mass/Vol] 0.28 mg/dL Low 0.70-1.20 [facility] Comment on above: Performed By: #### C P, CDP #### [facility] [address] [place], [place] [id number] [employer] Extinguisher Repairer: Farhad Turner MD GFR, Amer >60 Normal >60 [facility] [place] Comment on above: Performed By: #### C P, CDP #### [facility] [address] [place], [place] [id number] [employer] Extinguisher Repairer: Farhad Turner MD GFR,non Amer >60 Normal >60 [facility] Comment on above: Performed By: #### C P, CDP #### [facility] [address] [place], [place] [id number] [employer] Extinguisher Repairer: Farhad Turner MD Glucose [Mass/Vol] 120 mg/dL High 70-99 [facility] Comment on above: Performed By: #### C P, CDP #### [facility] [address] [place], [place] [id number] [employer] Extinguisher Repairer: Farhad Turner MD Potassium [Moles/Vol] 3.3 mmol/L Low 3.7-5.3 [facility] Comment on above: Performed By: #### C P, CDP #### [facility] [address] [place], [place] [address] [employer] Extinguisher Repairer: Farhad Turner MD Protein [Mass/Vol] 5.9 g/dL Low 6.4-8.3 [facility] Comment on above: Performed By: #### C P, CDP #### [facility] [address] [place], [place] [address] [employer] Extinguisher Repairer: Farhad Turner MD Sodium [Moles/Vol] 136 mmol/L Normal 135-144 [facility] Comment on above: Performed By: #### C P, CDP #### [facility] [address] [place], [place] [id number] [employer] Extinguisher Repairer: Farhad Turner MD Staging: Normal [facility] Comment on above: Result Comment: [...] [facility] [address] [place], [place] [address] [employer] Extinguisher Repairer: Farhad Turner MD Urea nitrogen [Mass/Vol] 6 mg/dL Low 8-23 [facility] Comment on above: Performed By: #### C P, CDP #### [facility] [address] [place] [address] [employer] Extinguisher Repairer: Farhad Turner MD Comprehensive Metabolic Pane franko 04-15-2020 Albumin [Mass/Vol] 2 g/dL Low 3.5 - 5.2 g/dL [place] Albumin/Globulin [Mass ratio] 0.5 {ratio} Low [place] ALP [Catalytic activity/Vol] 74 U/L 40 - 129 U/L [place] ALT [Catalytic activity/Vol] 6 U/L 5 - 41 U/L [place] Anion gap [Moles/Vol] 5 mmol/L Low 9 - 17 mmol/L [place] AST [Catalytic activity/Vol] 12 U/L <40 [place] Bilirubin Ql (U) 0.32 mg/dL 0.3 - 1.2 mg/dL [place] Bun/Cre Ratio 21 [place] Calcium [Mass/Vol] 9.4 mg/dL 8.6 - 10. 4 mg/dL [place] Chloride [Moles/Vol] 101 mmol/L 98 - 10 7 mmol/L [place] CO2 [Moles/Vol] 30 mmol/L 20 - 31 mmol/L [place] Creatinine [Mass/Vol] 0.28 mg/dL Low 0.7 - 1.2 mg/dL [place] GFR >60 >60 mL/min [place] GFR Non- >60 >60 mL/min [place] Glucose [Mass/Vol] 120 mg/dL High 70 - 99 mg/dL [place] Interpretation and review of laboratory results Abnormal [place] Potassium [Moles/Vol] 3.3 mmol/L Low 3.7 - 5.3 mmol/L [place] Protein [Mass/Vol] 5.9 g/dL Low 6.4 - 8.3 g/dL [place] Sodium [Moles/Vol] 136 mmol/L 135 - 144 mmol/L [place] Urea nitrogen [Mass/Vol] 6 mg/dL Low 8 - 23 mg/dL [place] Metabolic Panelon 04-15-2020 GFR/1.73 sq M predicted among non-blacks MDRD (S/P/Bld) [Vol rate/Area] [place] Comment on above: Stage 1: Some [...] body mass. Additional eGFR calculator available at: http://www.Purch/multiple_crcl_2012.htm Transfer Inon 04-13-2020 Transfer In [id number]:12 7 Normal [facility] CBCon 03-16-2020 Erythrocyte distribution width (RBC) [Ratio] 17.3 % High 11.8 - 14.4 % [place] Hematocrit (Bld) [Volume fraction] 30.0 % Low 40.7 - 50.3 % [place] Hemoglobin (Bld) [Mass/Vol] 8.7 g/dL Low 13 - 17 g/dL [place] Interpretation and review of laboratory results Abnormal [place] MCH (RBC) [Entitic mass] 25.1 pg Low 25.2 - 33.5 pg [place] MCHC (RBC) [Mass/Vol] 29.0 g/dL 28.4 - 34.8 g/dL [place] MCV (RBC) [Entitic vol] 86.5 fL 82.6 - 102.9 fL [place] Platelet mean volume (Bld) [Entitic vol] 8.8 fL 8.1 - 13.5 fL [place] Platelets (Bld) [#/Vol] 471 10*3/uL [place] RBC (Bld) [#/Vol] 3.47 10*6/uL Low 4.21 - 5.7 7 m/uL [place] WBC (Bld) [#/Vol] 14.6 10*3/uL [place] WBC (Bld) [#/Vol] 0.0 10*3/uL 0.0 per 10 0 WBC [place] Comprehensive Metabolic Pane franko 03-16-2020 Albumin [Mass/Vol] 2.1 g/dL Low 3.5 - 5.2 g/dL [place] Albumin/Globulin [Mass ratio] 0.5 {ratio} Low [place] ALP [Catalytic activity/Vol] 54 U/L 40 - 129 U/L [place] ALT [Catalytic activity/Vol] U/L Low 5 - 41 U/L [place] Anion gap [Moles/Vol] 9 mmol/L 9 - 17 mmol/L [place] AST [Catalytic activity/Vol] 9 U/L <40 [place] Bilirubin Ql (U) 0.18 mg/dL Low 0.3 - 1.2 mg/dL [place] Bun/Cre Ratio 18 [place] Calcium [Mass/Vol] 9.7 mg/dL 8.6 - 10. 4 mg/dL [place] Chloride [Moles/Vol] 99 mmol/L 98 - 10 7 mmol/L [place] CO2 [Moles/Vol] 27 mmol/L 20 - 31 mmol/L [place] Creatinine [Mass/Vol] 0.39 mg/dL Low 0.7 - 1.2 mg/dL [place] GFR >60 >60 mL/min [place] GFR Non- >60 >60 mL/min [place] Glucose [Mass/Vol] 98 mg/dL 70 - 99 mg/dL [place] Interpretation and review of laboratory results Abnormal [place] Potassium [Moles/Vol] 3.6 mmol/L Low 3.7 - 5.3 mmol/L [place] Protein [Mass/Vol] 6.3 g/dL Low 6.4 - 8.3 g/dL [place] Sodium [Moles/Vol] 135 mmol/L 135 - 144 mmol/L [place] Urea nitrogen [Mass/Vol] 7 mg/dL Low 8 - 23 mg/dL [place] Metabolic Panelon 03-16-2020 GFR/1.73 sq M predicted among non-blacks MDRD (S/P/Bld) [Vol rate/Area] [place] Comment on above: Average GFR for 60-6 9 years old: 85 mL/min/1.73sq m Chronic Kidney Disease: <60 mL/min/1.73sq m Kidney failure: <15 mL/min/1.73sq m eGFR calculated using average adult body mass. Additional eGFR calculator available at: http://www.Purch/multiple_crcl_2012.htm Stage 1: Some kidney damage normal GFR Stage 2: Mild kidney damage GFR 60-89 Stage 3: Moderate kidney damage GFR 30-59 Stage 4: Severe kidney damage GFR 15-29 Stage 5: Severe kidney damage GFR <15 ESRD - chronic treatment by dialysis or transplant Transfer Inon 03-13-2020 Transfer In [id number]:12 7 [facility] Lab Reportson 03-06-2020 Lab Reports [id number]#[id number]:12 7 [facility] Reminderson 03-06-2020 Reminders - From: Rain Cade To: EU - Clinical; Sent: 03/02/2020 10:47:20 EDT Show up: 03/04/2020 10:47:00 EDT Subject: Urine C&S Due Date/Time: 03/06/2020 10:47:00 EDT Reminder/Recall Urine C&S done [facility] Please review Urine C&S and call pt with results.LG From: Rain Cade ( - Clinical) To: GERI GODWIN, Billy Jordan; Sent: 03/06/2020 08:48:22 EDT Show up: 03/06/2020 08:48:00 EDT Subject: RE: Urine C&S Dr. Nevarez reviewed. levaquin 500mg qd #14 proposed. pts was notified.LG Normal [facility] SURGICAL PATHOLOGYon 020 SURGICAL PATHOLOGY ADDENDUM PRESENT Specimen #: [id number] Submitting Physician: JASON MUÑOZ M.D. FINAL DIAGNOSIS [facility], [place], [place]; [phone] (11/13/2019) Duodenum, postbulbar, biopsy (A1, stains) - [...] to contact the GI Consultation Service at [phone] with questions or if additional follow up information becomes available. This case was reviewed in conjunction with the GI pathology fellow, Rajan Bain M.D., Ph.D. /[facility]//11-19-2019 Walter De Luna M.D., Ph.D. (Electronic Signature) SPECIMEN SUBMITTED A: 6 SLIDES [id number] ADDENDUM Date Ordered: 11/19/2019 Date Reported: 11/19/2019 This case has also been reviewed in consultation with Dr. Halie Cartwright, who concurs with the diagnosis. Addendum Pathologist: Walter De Luna M.D., Ph.D. Electronic Signature CLINICAL DATA Abdominal pain. Patient ID #: Date of Report: 11/19/2019 Date of Procedure: 11/18/2019 Date of Receipt: 11/18/2019 Submitted by: JASON MUÑOZ M.D. Location: Diagnostic interpretation performed at [facility], [address] [place] [address]. CLIA Number: [id number] Normal [facility] Reference Lab Comment on above: Performed By: #### S #### See report for performing lab information. Vital Signs Date Time Vital Sign Value Performing Clinician Facility 04-04-2024 10:37-0500 Body temperature 98.4 [degF] Chair Danny Work Phone: [facility] 04-04-2024 10:37-0500 Diastolic blood pressure 79 mm[Hg] Chair Danny Work Phone: [facility] 04-04-2024 10:37-0500 Heart rate 84 /min Chair Danny Work Phone: [facility] 04-04-2024 10:37-0500 Respiratory rate 18 /min Chair Danny Work Phone: [facility] 04-04-2024 10:37-0500 SaO2% (BldA) [Mass fraction] 98 % Chair Danny Work Phone: [facility] 04-04-2024 10:37-0500 Systolic blood pressure 136 mm[Hg] Chair Danny Work Phone: [facility] 04-02-2024 09:31-0500 Body height 169.7 cm Yordy Moncada APRN.[employer]ING [employer] Work Phone: [facility] 04-02-2024 09:31-0500 Body mass index (BMI) [Ratio] 26.15 kg/m2 Yordy Moncada APRN.[employer]ING [employer] Work Phone: [facility] 04-02-2024 09:31-0500 Body temperature 97.81 [degF] Yordy Moncada APRN.[employer]ING [employer] Work Phone: [facility] 04-02-2024 09:31-0500 Body weight 75.3 kg Yordy Moncada APRN.[employer]ING [employer] Work Phone: [facility] 04-02-2024 09:31-0500 Diastolic blood pressure 74 mm[Hg] Yordy Moncada APRN.[employer]ING [employer] Work Phone: [facility] 04-02-2024 09:31-0500 Heart rate 75 /min Yordy Moncada APRN.[employer]ING [employer] Work Phone: [facility] 04-02-2024 09:31-0500 Respiratory rate 16 /min Yordy Moncada STRUCTURAL DRAFTSMAN.[employer]NER Work Phone: [facility] 04-02-2024 09:31-0500 SaO2% (BldA) [Mass fraction] 99 % Yordy Moncada [employer]UCTURAL DRAFTSMAN.[employer]NER Work Phone: [facility] 04-02-2024 09:31-0500 Systolic blood pressure 122 mm[Hg] Yordy Moncada STRUCTURAL DRAFTSMAN.[employer]ING [employer]NER Work Phone: [facility] 04-01-2024 14:15-0500 Body height 172.7 cm Giovanni Salinas MD Work Phone: [facility] 04-01-2024 14:15-0500 Body mass index (BMI) [Ratio] 25.85 kg/m2 Giovanni Salinas MD Work Phone: [facility] 04-01-2024 14:15-0500 Body temperature 98.6 [degF] Giovanni Salinas MD Work Phone: [facility] 04-01-2024 14:15-0500 Body weight 77.11 kg Giovanni Salinas MD Work Phone: [facility] 04-01-2024 14:15-0500 Diastolic blood pressure 72 mm[Hg] Giovanni Salinas MD Work Phone: [facility] 04-01-2024 14:15-0500 Heart rate 73 /min Giovanni Salinas MD Work Phone: [facility] 04-01-2024 14:15-0500 SaO2% (BldA) [Mass fraction] 98 % Giovanni Salinas MD Work Phone: [facility] 04-01-2024 14:15-0500 Systolic blood pressure 130 mm[Hg] Giovanni Salinas MD Work Phone: [facility] 03-07-2024 10:56-0400 Body temperature 98.1 [degF] Chair Delgado Work Phone: [facility] 03-07-2024 10:56-0400 Diastolic blood pressure 70 mm[Hg] Chair Danny Work Phone: [facility] 03-07-2024 10:56-0400 Heart rate 88 /min Chair Danny Work Phone: [facility] 03-07-2024 10:56-0400 Respiratory rate 18 /min Chair Danny Work Phone: [facility] 03-07-2024 10:56-0400 SaO2% (BldA) [Mass fraction] 100 % Chair Danny Work Phone: [facility] 03-07-2024 10:56-0400 Systolic blood pressure 107 mm[Hg] Chair Danny Work Phone: [facility] 03-05-2024 08:42-0400 Body height 169.7 cm Vivek Smith MD Work Phone: [facility] 03-05-2024 08:42-0400 Body mass index (BMI) [Ratio] 26.29 kg/m2 Vivek Smith MD Work Phone: [facility] 03-05-2024 08:42-0400 Body temperature 97.11 [degF] Vivek Smith MD Work Phone: [facility] 03-05-2024 08:42-0400 Body weight 75.7 kg Vivek Smith MD Work Phone: [facility] 03-05-2024 08:42-0400 Diastolic blood pressure 69 mm[Hg] Vivek Smith MD Work Phone: [facility] 03-05-2024 08:42-0400 Heart rate 89 /min Vivek Smith MD Work Phone: [facility] 03-05-2024 08:42-0400 Respiratory rate 16 /min Vivek Smith MD Work Phone: [facility] 03-05-2024 08:42-0400 SaO2% (BldA) [Mass fraction] 99 % Vivek Smith MD Work Phone: [facility] 03-05-2024 08:42-0400 Systolic blood pressure 112 mm[Hg] Vivek Smith MD Work Phone: [facility] 02-14-2024 10:27-0400 Diastolic blood pressure 81 mm[Hg] Chair [place] Work Phone: [facility] 02-14-2024 10:27-0400 Heart rate 79 /min Chair Danny Work Phone: [facility] 02-14-2024 10:27-0400 Respiratory rate 16 /min Chair [place] Work Phone: [facility] 02-14-2024 10:27-0400 SaO2% (BldA) [Mass fraction] 97 % Chair Danny Work Phone: [facility] 02-14-2024 10:27-0400 Systolic blood pressure 125 mm[Hg] Chair Danny Work Phone: [facility] 02-12-2024 08:47-0400 Body mass index (BMI) [Ratio] 26.04 kg/m2 Vivek Smith MD Work Phone: [facility] 02-12-2024 08:47-0400 Body temperature 97.59 [degF] Vivek Smith MD Work Phone: [facility] 02-12-2024 08:47-0400 Body weight 75 kg Vivek Smith MD Work Phone: [facility] 02-12-2024 08:47-0400 Diastolic blood pressure 76 mm[Hg] Vivek Smith MD Work Phone: [facility] 02-12-2024 08:47-0400 Heart rate 82 /min Vivek Smith MD Work Phone: [facility] 02-12-2024 08:47-0400 Respiratory rate 18 /min Vivek Smith MD Work Phone: [facility] 02-12-2024 08:47-0400 SaO2% (BldA) [Mass fraction] 99 % Vivek Smith MD Work Phone: [facility] 02-12-2024 08:47-0400 Systolic blood pressure 117 mm[Hg] Vivek Smith MD Work Phone: [facility] 01-23-2024 09:29-0400 Body height 169.7 cm Greta Rashard PA-C Work Phone: [facility] 01-23-2024 09:29-0400 Body mass index (BMI) [Ratio] 26.15 kg/m2 Greta Rashard PA-C Work Phone: [facility] 01-23-2024 09:29-0400 Body temperature 97.11 [degF] Greta Rashard PA-C Work Phone: [facility] 01-23-2024 09:29-0400 Body weight 75.3 kg Greta Rashard PA-C Work Phone: [facility] 01-23-2024 09:29-0400 Diastolic blood pressure 81 mm[Hg] Greta Rashard PA-C Work Phone: [facility] 01-23-2024 09:29-0400 Heart rate 82 /min Greta Rashard PA-C Work Phone: [facility] 01-23-2024 09:29-0400 Respiratory rate 16 /min Greta Rashard PA-C Work Phone: [facility] 01-23-2024 09:29-0400 SaO2% (BldA) [Mass fraction] 100 % Greta Rashard PA-C Work Phone: [facility] 01-23-2024 09:29-0400 Systolic blood pressure 124 mm[Hg] Greta Rashard PA-C Work Phone: [facility] 01-05-2024 11:02-0400 Body temperature 97.7 [degF] Chair Danny Work Phone: [facility] 01-05-2024 11:02-0400 Diastolic blood pressure 73 mm[Hg] Chair Danny Work Phone: [facility] 01-05-2024 11:02-0400 Heart rate 71 /min Chair Danny Work Phone: [facility] 01-05-2024 11:02-0400 Respiratory rate 18 /min Chair [place] Work Phone: [facility] 01-05-2024 11:02-0400 SaO2% (BldA) [Mass fraction] 99 % Chair Danny Work Phone: [facility] 01-05-2024 11:02-0400 Systolic blood pressure 108 mm[Hg] Chair [place] Work Phone: [facility] 01-03-2024 09:37-0400 Body height 169.7 cm Greta Rashard PA-C Work Phone: [facility] 01-03-2024 09:37-0400 Body mass index (BMI) [Ratio] 26.18 kg/m2 Greta Rashard PA-C Work Phone: [facility] 01-03-2024 09:37-0400 Body temperature 97.39 [degF] Greta Rashard PA-C Work Phone: [facility] 01-03-2024 09:37-0400 Body weight 75.4 kg Greta Rashard PA-C Work Phone: [facility] 01-03-2024 09:37-0400 Diastolic blood pressure 84 mm[Hg] Greta Rashard PA-C Work Phone: [facility] 01-03-2024 09:37-0400 Heart rate 75 /min Greta Rashard PA-C Work Phone: [facility] 01-03-2024 09:37-0400 Respiratory rate 16 /min Greta Rashard PA-C Work Phone: [facility] 01-03-2024 09:37-0400 SaO2% (BldA) [Mass fraction] 99 % Greta Rashard PA-C Work Phone: [facility] 01-03-2024 09:37-0400 Systolic blood pressure 128 mm[Hg] Greta Wetzel PA-C Work Phone: [facility] 12-13-2023 12:05-0400 Body temperature 98.2 [degF] Chair Danny Work Phone: [facility] 12-13-2023 12:05-0400 Diastolic blood pressure 78 mm[Hg] Chair [place] Work Phone: [facility] 12-13-2023 12:05-0400 Heart rate 72 /min Chair [place] Work Phone: [facility] 12-13-2023 12:05-0400 Respiratory rate 18 /min Chair Danny Work Phone: [facility] 12-13-2023 12:05-0400 SaO2% (BldA) [Mass fraction] 98 % Chair [place] Work Phone: [facility] 12-13-2023 12:05-0400 Systolic blood pressure 110 mm[Hg] Chair [place] Work Phone: [facility] 12-11-2023 10:04-0400 Body mass index (BMI) [Ratio] 25.87 kg/m2 Vivek Smith MD Work Phone: [facility] 12-11-2023 10:04-0400 Body temperature 97.9 [degF] Vivek Smith MD Work Phone: [facility] 12-11-2023 10:04-0400 Body weight 74.5 kg Vivek Smith MD Work Phone: [facility] 12-11-2023 10:04-0400 Diastolic blood pressure 69 mm[Hg] Vivek Smith MD Work Phone: [facility] 12-11-2023 10:04-0400 Heart rate 84 /min Vivek Smith MD Work Phone: [facility] 12-11-2023 10:04-0400 Respiratory rate 16 /min Vivek Smith MD Work Phone: [facility] 12-11-2023 10:04-0400 SaO2% (BldA) [Mass fraction] 99 % Vivek Smith MD Work Phone: [facility] 12-11-2023 10:04-0400 Systolic blood pressure 107 mm[Hg] Vivek Smith MD Work Phone: [facility] 11-22-2023 10:29-0400 Body temperature 98.2 [degF] Chair [place] Work Phone: [facility] 11-22-2023 10:29-0400 Diastolic blood pressure 72 mm[Hg] Chair [place] Work Phone: [facility] 11-22-2023 10:29-0400 Heart rate 75 /min Chair [place] Work Phone: [facility] 11-22-2023 10:29-0400 Respiratory rate 18 /min Chair [place] Work Phone: [facility] 11-22-2023 10:29-0400 SaO2% (BldA) [Mass fraction] 98 % Chair [place] Work Phone: [facility] 11-22-2023 10:29-0400 Systolic blood pressure 115 mm[Hg] Chair [place] Work Phone: [facility] 11-20-2023 08:14-0400 Body height 169.7 cm Vivek Smith MD Work Phone: [facility] 11-20-2023 08:14-0400 Body mass index (BMI) [Ratio] 25.55 kg/m2 Vivek Smith MD Work Phone: [facility] 11-20-2023 08:14-0400 Body temperature 97.3 [degF] Vivek Smith MD Work Phone: [facility] 11-20-2023 08:14-0400 Body weight 73.57 kg Vivek Smith MD Work Phone: [facility] 11-20-2023 08:14-0400 Diastolic blood pressure 77 mm[Hg] Vivek Smith MD Work Phone: [facility] 11-20-2023 08:14-0400 Heart rate 77 /min Vivek Smith MD Work Phone: [facility] 11-20-2023 08:14-0400 Respiratory rate 16 /min Vivek Smith MD Work Phone: [facility] 11-20-2023 08:14-0400 SaO2% (BldA) [Mass fraction] 99 % Vivek Smith MD Work Phone: [facility] 11-20-2023 08:14-0400 Systolic blood pressure 134 mm[Hg] Vivek Smith MD Work Phone: [facility] 11-02-2023 12:34-0400 Body temperature 97.59 [degF] Chair [place] Work Phone: [facility] 11-02-2023 12:34-0400 Diastolic blood pressure 61 mm[Hg] Chair [place] Work Phone: [facility] 11-02-2023 12:34-0400 Heart rate 86 /min Chair [place] Work Phone: [facility] 11-02-2023 12:34-0400 Respiratory rate 18 /min Chair [place] Work Phone: [facility] 11-02-2023 12:34-0400 SaO2% (BldA) [Mass fraction] 98 % Chair [place] Work Phone: [facility] 11-02-2023 12:34-0400 Systolic blood pressure 104 mm[Hg] Chair [place] Work Phone: [facility] 10-31-2023 10:34-0400 Body height 169.7 cm Grace Bess MD Work Phone: [facility] 10-31-2023 10:34-0400 Body mass index (BMI) [Ratio] 24.38 kg/m2 Grace Bess MD Work Phone: [facility] 10-31-2023 10:34-0400 Body temperature 97.2 [degF] Grace Bess MD Work Phone: [facility] 10-31-2023 10:34-0400 Body weight 70.2 kg Grace Bess MD Work Phone: [facility] 10-31-2023 10:34-0400 Diastolic blood pressure 81 mm[Hg] Grace Bess MD Work Phone: [facility] 10-31-2023 10:34-0400 Heart rate 75 /min Grace Bess MD Work Phone: [facility] 10-31-2023 10:34-0400 Respiratory rate 16 /min Grace Bess MD Work Phone: [facility] 10-31-2023 10:34-0400 SaO2% (BldA) [Mass fraction] 100 % Grace Bess MD Work Phone: [facility] 10-31-2023 10:34-0400 Systolic blood pressure 118 mm[Hg] Grace Bess MD Work Phone: [facility] 10-13-2023 11:35-0400 Body temperature 97.59 [degF] Chair [place] Work Phone: [facility] 10-13-2023 11:35-0400 Diastolic blood pressure 71 mm[Hg] Chair [place] Work Phone: [facility] 10-13-2023 11:35-0400 Heart rate 83 /min Chair [place] Work Phone: [facility] 10-13-2023 11:35-0400 Respiratory rate 16 /min Chair Danny Work Phone: [facility] 10-13-2023 11:35-0400 SaO2% (BldA) [Mass fraction] 100 % Chair Danny Work Phone: [facility] 05-24-2024 11:35-0400 Systolic blood pressure 107 mm[Hg] Chair Danny Work Phone: [facility] 10-11-2023 10:02-0400 Diastolic blood pressure 67 mm[Hg] Chair Danny Work Phone: [facility] Comment on above: Rechecked in tx room 10-11-2023 10:02-0400 Systolic blood pressure 100 mm[Hg] Chair [place] Work Phone: [facility] Comment on above: Rechecked in tx room 10-11-2023 09:27-0400 Body height 169.7 cm Greta Rashard PA-C Work Phone: [facility] 10-11-2023 09:27-0400 Body mass index (BMI) [Ratio] 24.48 kg/m2 Greta Rashard PA-C Work Phone: [facility] 10-11-2023 09:27-0400 Body temperature 98.01 [degF] Greta Rashard PA-C Work Phone: [facility] 10-11-2023 09:27-0400 Body weight 70.5 kg Greta Rashard PA-C Work Phone: [facility] 10-11-2023 09:27-0400 Diastolic blood pressure 56 mm[Hg] Greta Rashard PA-C Work Phone: [facility] 10-11-2023 09:27-0400 Heart rate 87 /min Greta Rashard PA-C Work Phone: [facility] 10-11-2023 09:27-0400 Respiratory rate 16 /min Greta Rashard PA-C Work Phone: [facility] 10-11-2023 09:27-0400 SaO2% (BldA) [Mass fraction] 100 % Greta Rashard PA-C Work Phone: [facility] 10-11-2023 09:27-0400 Systolic blood pressure 85 mm[Hg] Greta Rashard PA-C Work Phone: [facility] 10-03-2023 11:15-0400 Body height 169.7 cm Greta Rashard PA-C Work Phone: [facility] 10-03-2023 11:15-0400 Body mass index (BMI) [Ratio] 25.56 kg/m2 Greta Rashard PA-C Work Phone: [facility] 10-03-2023 11:15-0400 Body temperature 97.5 [degF] Greta Rashard PA-C Work Phone: [facility] 10-03-2023 11:15-0400 Body weight 73.6 kg Greta Rashard PA-C Work Phone: [facility] 10-03-2023 11:15-0400 Diastolic blood pressure 53 mm[Hg] Greta Rashard PA-C Work Phone: [facility] 10-03-2023 11:15-0400 Heart rate 81 /min Greta Rashard PA-C Work Phone: [facility] 10-03-2023 11:15-0400 Respiratory rate 16 /min Greta Rashard PA-C Work Phone: [facility] 10-03-2023 11:15-0400 SaO2% (BldA) [Mass fraction] 98 % Greta Rashard PA-C Work Phone: [facility] 10-03-2023 11:15-0400 Systolic blood pressure 83 mm[Hg] Greta Rashard PA-C Work Phone: [facility] 09-15-2023 13:05-0400 Body temperature 97.9 [degF] Chair Danny Work Phone: [facility] 09-15-2023 13:05-0400 Diastolic blood pressure 68 mm[Hg] Chair [place] Work Phone: [facility] 09-15-2023 13:05-0400 Heart rate 77 /min Chair [place] Work Phone: [facility] 09-15-2023 13:05-0400 Respiratory rate 18 /min Chair Delgado Work Phone: [facility] 09-15-2023 13:05-0400 SaO2% (BldA) [Mass fraction] 98 % Chair Danny Work Phone: [facility] 09-15-2023 13:05-0400 Systolic blood pressure 114 mm[Hg] Chair Delgado Work Phone: [facility] 09-13-2023 11:29-0400 Body height 169.7 cm Yordy Moncada APRN.[employer] Work Phone: [facility] 09-13-2023 11:29-0400 Body mass index (BMI) [Ratio] 24.76 kg/m2 Yordy Moncada APRN.[employer] Work Phone: [facility] 09-13-2023 11:29-0400 Body temperature 97.59 [degF] Yordy Moncada APRN.[employer] Work Phone: [facility] 09-13-2023 11:29-0400 Body weight 71.3 kg Yordy Moncada APRN.[employer] Work Phone: [facility] 09-13-2023 11:29-0400 Diastolic blood pressure 63 mm[Hg] Yordy Moncada APRN.[employer] Work Phone: [facility] 09-13-2023 11:29-0400 Heart rate 75 /min Yordy Moncada APRN.[employer] Work Phone: [facility] 09-13-2023 11:29-0400 Respiratory rate 16 /min Yordy Moncada APRN.[employer] Work Phone: [facility] 09-13-2023 11:29-0400 SaO2% (BldA) [Mass fraction] 99 % Yordy Moncada APRN.[employer] Work Phone: [facility] 09-13-2023 11:29-0400 Systolic blood pressure 106 mm[Hg] Yordy Moncada APRN.CASING RUNNER Work Phone: [facility] 08-23-2023 10:36-0400 Body height 169.7 cm Grace Bess MD Work Phone: [facility] 08-23-2023 10:36-0400 Body temperature 97.59 [degF] Grace Bess MD Work Phone: [facility] 08-23-2023 10:36-0400 Body weight 72.5 kg Grace Bess MD Work Phone: [facility] 08-23-2023 10:36-0400 Diastolic blood pressure 72 mm[Hg] Grace Bess MD Work Phone: [facility] 08-23-2023 10:36-0400 Heart rate 88 /min Grace Bess MD Work Phone: [facility] 08-23-2023 10:36-0400 Respiratory rate 16 /min Grace Bess MD Work Phone: [facility] 08-23-2023 10:36-0400 SaO2% (BldA) [Mass fraction] 98 % Grace Bess MD Work Phone: [facility] 08-23-2023 10:36-0400 Systolic blood pressure 108 mm[Hg] Grace Bess MD Work Phone: [facility] 08-04-2023 12:40-0400 Body temperature 97.5 [degF] Chair [place] Work Phone: [facility] 08-04-2023 12:40-0400 Diastolic blood pressure 64 mm[Hg] Chair Danny Work Phone: [facility] 08-04-2023 12:40-0400 Heart rate 82 /min Chair [place] Work Phone: [facility] 08-04-2023 12:40-0400 Respiratory rate 16 /min Chair Danny Work Phone: [facility] 08-04-2023 12:40-0400 SaO2% (BldA) [Mass fraction] 98 % Chair Danny Work Phone: [facility] 08-04-2023 12:40-0400 Systolic blood pressure 95 mm[Hg] Chair [place] Work Phone: [facility] 08-02-2023 10:32-0400 Body height 169.7 cm Grace Bess MD Work Phone: [facility] 08-02-2023 10:32-0400 Body temperature 97.5 [degF] Grace Bess MD Work Phone: [facility] 08-02-2023 10:32-0400 Body weight 71.2 kg Grace Bess MD Work Phone: [facility] 08-02-2023 10:32-0400 Diastolic blood pressure 68 mm[Hg] Grace Bess MD Work Phone: [facility] 08-02-2023 10:32-0400 Heart rate 85 /min Grace Bess MD Work Phone: [facility] 08-02-2023 10:32-0400 Respiratory rate 16 /min Grace Bess MD Work Phone: [facility] 08-02-2023 10:32-0400 SaO2% (BldA) [Mass fraction] 100 % Grace eBss MD Work Phone: [facility] 08-02-2023 10:32-0400 Systolic blood pressure 96 mm[Hg] Grace Bess MD Work Phone: [facility] 07-21-2023 11:57-0500 Body temperature 98.1 [degF] Chair Danny Work Phone: [facility] 07-21-2023 11:57-0500 Diastolic blood pressure 65 mm[Hg] Chair [place] Work Phone: [facility] 07-21-2023 11:57-0500 Heart rate 78 /min Chair [place] Work Phone: [facility] 07-21-2023 11:57-0500 Respiratory rate 18 /min Chair [place] Work Phone: [facility] 07-21-2023 11:57-0500 SaO2% (BldA) [Mass fraction] 100 % Chair [place] Work Phone: [facility] 07-21-2023 11:57-0500 Systolic blood pressure 96 mm[Hg] Chair [place] Work Phone: [facility] 07-19-2023 10:14-0500 Body height 169.7 cm Yordy Moncada APRN.CASING RUNNER Work Phone: [facility] 07-19-2023 10:14-0500 Body temperature 97.59 [degF] Yordy Moncada APRN.CASING RUNNER Work Phone: [facility] 07-19-2023 10:14-0500 Body weight 71.5 kg Yordy Moncada APRN.CASING RUNNER Work Phone: [facility] 07-19-2023 10:14-0500 Diastolic blood pressure 58 mm[Hg] Yordy Moncada APRN.CASING RUNNER Work Phone: [facility] 07-19-2023 10:14-0500 Heart rate 67 /min Yordy Moncada APRN.CASING RUNNER Work Phone: [facility] 07-19-2023 10:14-0500 Respiratory rate 16 /min Yordy Moncada APRN.CASING RUNNER Work Phone: [facility] 07-19-2023 10:14-0500 SaO2% (BldA) [Mass fraction] 99 % Yordy Moncada APRN.CASING RUNNER Work Phone: [facility] 07-19-2023 10:14-0500 Systolic blood pressure 100 mm[Hg] Yordy Moncada APRN.CASING RUNNER Work Phone: [facility] 07-07-2023 12:40-0500 Body temperature 97.7 [degF] Chair Danny Work Phone: [facility] 07-07-2023 12:40-0500 Diastolic blood pressure 69 mm[Hg] Chair Danny Work Phone: [facility] 07-07-2023 12:40-0500 Heart rate 75 /min Chair [place] Work Phone: [facility] 07-07-2023 12:40-0500 Respiratory rate 18 /min Chair Danny Work Phone: [facility] 07-07-2023 12:40-0500 SaO2% (BldA) [Mass fraction] 98 % Chair [place] Work Phone: [facility] 07-07-2023 12:40-0500 Systolic blood pressure 103 mm[Hg] Chair [place] Work Phone: [facility] 07-05-2023 10:46-0500 Body height 169.7 cm Yordy Moncada APRN.CASING RUNNER Work Phone: [facility] 07-05-2023 10:46-0500 Body temperature 97 [degF] Yordy Moncada APRN.CASING RUNNER Work Phone: [facility] 07-05-2023 10:46-0500 Body weight 72.3 kg Yordy Moncada APRN.CASING RUNNER Work Phone: [facility] 07-05-2023 10:46-0500 Diastolic blood pressure 68 mm[Hg] Yordy Moncada APRN.CASING RUNNER Work Phone: [facility] 07-05-2023 10:46-0500 Heart rate 92 /min Yordy Moncada APRN.CASING RUNNER Work Phone: [facility] 07-05-2023 10:46-0500 Respiratory rate 16 /min Yordy Moncada APRN.CASING RUNNER Work Phone: [facility] 07-05-2023 10:46-0500 SaO2% (BldA) [Mass fraction] 97 % Yordy Moncada APRN.CASING RUNNER Work Phone: [facility] 02-14-2024 10:46-0500 Systolic blood pressure 96 mm[Hg] Yordy Moncada APRN.CNP Work Phone: [facility] 06-23-2023 10:28-0500 Body temperature 97.7 [degF] Chair [place] Work Phone: [facility] 06-23-2023 10:28-0500 Diastolic blood pressure 76 mm[Hg] Chair [place] Work Phone: [facility] 06-23-2023 10:28-0500 Heart rate 83 /min Chair [place] Work Phone: [facility] 06-23-2023 10:28-0500 Respiratory rate 16 /min Chair Danny Work Phone: [facility] 06-23-2023 10:28-0500 SaO2% (BldA) [Mass fraction] 100 % Chair [place] Work Phone: [facility] 06-23-2023 10:28-0500 Systolic blood pressure 117 mm[Hg] Chair [place] Work Phone: [facility] 05-05-2023 12:59-0500 Body height 171.4 cm Grace Bess MD Work Phone: [facility] 05-05-2023 12:59-0500 Body temperature 97 [degF] Grace Bess MD Work Phone: [facility] 05-05-2023 12:59-0500 Body weight 73.9 kg Grace Bess MD Work Phone: [facility] 05-05-2023 12:59-0500 Diastolic blood pressure 80 mm[Hg] Grace Bess MD Work Phone: [facility] 05-05-2023 12:59-0500 Heart rate 90 /min Grace Bess MD Work Phone: [facility] 05-05-2023 12:59-0500 Respiratory rate 20 /min Grace Bess MD Work Phone: [facility] 05-05-2023 12:59-0500 SaO2% (BldA) [Mass fraction] 100 % Grace Bess MD Work Phone: [facility] 05-05-2023 12:59-0500 Systolic blood pressure 137 mm[Hg] Grace Bess MD Work Phone: [facility] 04-05-2023 13:49-0500 Body height 171.4 cm Yordy Moncada APRN.CASING RUNNER Work Phone: [facility] 04-05-2023 13:49-0500 Body temperature 97.59 [degF] Yordy Moncada APRN.CASING RUNNER Work Phone: [facility] 04-05-2023 13:49-0500 Body weight 77.84 kg Yordy Moncada APRN.CASING RUNNER Work Phone: [facility] 04-05-2023 13:49-0500 Diastolic blood pressure 69 mm[Hg] Yordy Moncada APRN.CASING RUNNER Work Phone: [facility] 04-05-2023 13:49-0500 Heart rate 88 /min Yordy Moncada APRN.CASING RUNNER Work Phone: [facility] 04-05-2023 13:49-0500 Respiratory rate 16 /min Yordy Moncada APRN.CASING RUNNER Work Phone: [facility] 04-05-2023 13:49-0500 SaO2% (BldA) [Mass fraction] 99 % Yordy Moncada APRN.CASING RUNNER Work Phone: [facility] 04-05-2023 13:49-0500 Systolic blood pressure 100 mm[Hg] Yordy Moncada APRN.CASING RUNNER Work Phone: [facility] 03-30-2023 13:19-0500 Diastolic blood pressure 67 mm[Hg] Greta Wetzel PA-C Work Phone: [facility] 03-30-2023 13:19-0500 Systolic blood pressure 116 mm[Hg] Greta Wetzel PA-C Work Phone: [facility] 03-30-2023 13:15-0500 Body height 171.4 cm Greta Rashard PA-C Work Phone: [facility] 03-30-2023 13:15-0500 Body temperature 97.59 [degF] Greta Rashard PA-C Work Phone: [facility] 03-30-2023 13:15-0500 Body weight 77.2 kg Greta Rashard PA-C Work Phone: [facility] 03-30-2023 13:15-0500 Heart rate 90 /min Greta Rashard PA-C Work Phone: [facility] 03-30-2023 13:15-0500 Respiratory rate 16 /min Greta Rashard PA-C Work Phone: [facility] 03-30-2023 13:15-0500 SaO2% (BldA) [Mass fraction] 99 % Greta Rashard PA-C Work Phone: [facility] 03-08-2023 13:32-0400 Body height 171.4 cm Grace Bess MD Work Phone: [facility] 03-08-2023 13:32-0400 Body temperature 97.59 [degF] Grace Bess MD Work Phone: [facility] 03-08-2023 13:32-0400 Body weight 78.02 kg Grace Bess MD Work Phone: [facility] 03-08-2023 13:32-0400 Diastolic blood pressure 71 mm[Hg] Grace Bess MD Work Phone: [facility] 03-08-2023 13:32-0400 Heart rate 90 /min Grace Bess MD Work Phone: [facility] 03-08-2023 13:32-0400 Respiratory rate 16 /min Grace Bess MD Work Phone: [facility] 03-08-2023 13:32-0400 SaO2% (BldA) [Mass fraction] 100 % Grace Bess MD Work Phone: [facility] 03-08-2023 13:32-0400 Systolic blood pressure 104 mm[Hg] Grace Bess MD Work Phone: [facility] 02-08-2023 12:46-0400 Body height 171.4 cm Yordy Moncada STRUCTURAL DRAFTSMAN.CASING RUNNER Work Phone: [facility] 02-08-2023 12:46-0400 Body temperature 97.5 [degF] Yordy Moncada STRUCTURAL DRAFTSMAN.CASING RUNNER Work Phone: [facility] 02-08-2023 12:46-0400 Body weight 81.1 kg Yordy Moncada STRUCTURAL DRAFTSMAN.CASING RUNNER Work Phone: [facility] 02-08-2023 12:46-0400 Diastolic blood pressure 63 mm[Hg] Yordy Moncada STRUCTURAL DRAFTSMAN.CASING RUNNER Work Phone: [facility] 02-08-2023 12:46-0400 Heart rate 86 /min Yordy Moncada STRUCTURAL DRAFTSMAN.CASING RUNNER Work Phone: [facility] 02-08-2023 12:46-0400 Respiratory rate 16 /min Yordy Moncada STRUCTURAL DRAFTSMAN.CASING RUNNER Work Phone: [facility] 02-08-2023 12:46-0400 SaO2% (BldA) [Mass fraction] 100 % Yordy Moncada STRUCTURAL DRAFTSMAN.CASING RUNNER Work Phone: [facility] 02-08-2023 12:46-0400 Systolic blood pressure 117 mm[Hg] Yordy Moncada STRUCTURAL DRAFTSMAN.CASING RUNNER Work Phone: [facility] 02-01-2023 11:16-0400 Body height 171.4 cm Grace Bess MD Work Phone: [facility] 02-01-2023 11:16-0400 Body temperature 97.3 [degF] Grace Bess MD Work Phone: [facility] 02-01-2023 11:16-0400 Body weight 79.74 kg Grace Bess MD Work Phone: [facility] 02-01-2023 11:16-0400 Diastolic blood pressure 70 mm[Hg] Grace Bess MD Work Phone: [facility] 02-01-2023 11:16-0400 Heart rate 81 /min Grace Bess MD Work Phone: [facility] 02-01-2023 11:16-0400 Respiratory rate 16 /min Grace Bess MD Work Phone: [facility] 02-01-2023 11:16-0400 SaO2% (BldA) [Mass fraction] 99 % Grace Bess MD Work Phone: [facility] 02-01-2023 11:16-0400 Systolic blood pressure 104 mm[Hg] Grace Bess MD Work Phone: [facility] 01-04-2023 13:00-0400 Body height 171.4 cm Grace Bess MD Work Phone: [facility] 01-04-2023 13:00-0400 Body temperature 97.2 [degF] Grace Bess MD Work Phone: [facility] 01-04-2023 13:00-0400 Body weight 82.74 kg Grace Bess MD Work Phone: [facility] 01-04-2023 13:00-0400 Diastolic blood pressure 63 mm[Hg] Grace Bess MD Work Phone: [facility] 01-04-2023 13:00-0400 Heart rate 78 /min Grace Bess MD Work Phone: [facility] 01-04-2023 13:00-0400 Respiratory rate 18 /min Grace Bess MD Work Phone: [facility] 01-04-2023 13:00-0400 SaO2% (BldA) [Mass fraction] 100 % Grace Bess MD Work Phone: [facility] 01-04-2023 13:00-0400 Systolic blood pressure 104 mm[Hg] Grace Bess MD Work Phone: [facility] 12-21-2022 09:40-0400 Body height 171.4 cm Greta Rashard PA-C Work Phone: [facility] 12-21-2022 09:40-0400 Body temperature 97.11 [degF] Greta Rashard PA-C Work Phone: [facility] 12-21-2022 09:40-0400 Body weight 82.64 kg Greta Rashard PA-C Work Phone: [facility] 12-21-2022 09:40-0400 Diastolic blood pressure 68 mm[Hg] Greta Rashard PA-C Work Phone: [facility] 12-21-2022 09:40-0400 Heart rate 94 /min Greta Rashard PA-C Work Phone: [facility] 12-21-2022 09:40-0400 Respiratory rate 20 /min Greta Rashard PA-C Work Phone: [facility] 12-21-2022 09:40-0400 SaO2% (BldA) [Mass fraction] 100 % Greta Rashard PA-C Work Phone: [facility] 12-21-2022 09:40-0400 Systolic blood pressure 103 mm[Hg] Greta Rashard PA-C Work Phone: [facility] 12-15-2022 16:25-0400 Diastolic blood pressure 74 mm[Hg] II Giovanni Salinas Work Phone: [facility] 12-15-2022 16:25-0400 Heart rate 67 /min II Giovanni Salinas Work Phone: [facility] 12-15-2022 16:25-0400 Respiratory rate 18 /min II Giovanni Salinas Work Phone: [facility] 12-15-2022 16:25-0400 SaO2% (BldA) [Mass fraction] 100 % II Giovanni Salinas Work Phone: [facility] 12-15-2022 16:25-0400 Systolic blood pressure 105 mm[Hg] II Giovanni Salinas Work Phone: [facility] 12-15-2022 15:19-0400 Body height 170.18 cm II Giovanni Salinas Work Phone: [facility] 12-15-2022 15:19-0400 Body temperature 97.5 [degF] II Giovanni Salinas Work Phone: [facility] 12-15-2022 15:19-0400 Body weight 85.9 kg II Giovanni Salinas Work Phone: [facility] 12-05-2022 11:14-0400 Body height 171.4 cm Greta Rashard PA-C Work Phone: [facility] 12-05-2022 11:14-0400 Body temperature 97 [degF] Greta Rashard PA-C Work Phone: [facility] 12-05-2022 11:14-0400 Body weight 83.55 kg Greta Rashard PA-C Work Phone: [facility] 12-05-2022 11:14-0400 Diastolic blood pressure 51 mm[Hg] Greta Rashard PA-C Work Phone: [facility] 12-05-2022 11:14-0400 Heart rate 97 /min Greta Rashard PA-C Work Phone: [facility] 12-05-2022 11:14-0400 Respiratory rate 16 /min Greta Rahsard PA-C Work Phone: [facility] 12-05-2022 11:14-0400 SaO2% (BldA) [Mass fraction] 100 % Greta Rashard PA-C Work Phone: [facility] 12-05-2022 11:14-0400 Systolic blood pressure 97 mm[Hg] Greta Rashard PA-C Work Phone: [facility] 11-30-2022 10:33-0400 Body height 171.4 cm Grace Bess MD Work Phone: [facility] 11-30-2022 10:33-0400 Body temperature 96.69 [degF] Grace Bess MD Work Phone: [facility] 11-30-2022 10:33-0400 Body weight 83.92 kg Grace Bess MD Work Phone: [facility] 11-30-2022 10:33-0400 Diastolic blood pressure 67 mm[Hg] Grace Bess MD Work Phone: [facility] 11-30-2022 10:33-0400 Heart rate 68 /min Grace Bess MD Work Phone: [facility] 11-30-2022 10:33-0400 Respiratory rate 16 /min Grace Bess MD Work Phone: [facility] 11-30-2022 10:33-0400 SaO2% (BldA) [Mass fraction] 98 % Grace Bess MD Work Phone: [facility] 11-30-2022 10:33-0400 Systolic blood pressure 117 mm[Hg] Grace Bess MD Work Phone: [facility] 11-23-2022 13:45-0400 Body height 169.8 cm Greta Rashard PA-C Work Phone: [facility] 11-23-2022 13:45-0400 Body temperature 97.3 [degF] Greta Rashard PA-C Work Phone: [facility] 11-23-2022 13:45-0400 Body weight 83.64 kg Greta Rashard PA-C Work Phone: [facility] 11-23-2022 13:45-0400 Diastolic blood pressure 64 mm[Hg] Greta Rashard PA-C Work Phone: [facility] 11-23-2022 13:45-0400 Heart rate 92 /min Greta Rashard PA-C Work Phone: [facility] 11-23-2022 13:45-0400 Respiratory rate 16 /min Greta Rashard PA-C Work Phone: [facility] 11-23-2022 13:45-0400 SaO2% (BldA) [Mass fraction] 100 % Greta Rashard PA-C Work Phone: [facility] 11-23-2022 13:45-0400 Systolic blood pressure 106 mm[Hg] Greta Rashard PA-C Work Phone: [facility] 11-10-2022 09:41-0400 Body height 169.8 cm Grace Bess MD Work Phone: [facility] 11-10-2022 09:41-0400 Body temperature 97.3 [degF] Grace Bess MD Work Phone: [facility] 11-10-2022 09:41-0400 Body weight 82.64 kg Grace Bess MD Work Phone: [facility] 11-10-2022 09:41-0400 Diastolic blood pressure 77 mm[Hg] Grace Bess MD Work Phone: [facility] 11-10-2022 09:41-0400 Heart rate 80 /min Grace Bess MD Work Phone: [facility] 11-10-2022 09:41-0400 Respiratory rate 16 /min Grace Bess MD Work Phone: [facility] 11-10-2022 09:41-0400 SaO2% (BldA) [Mass fraction] 99 % Grace Bess MD Work Phone: [facility] 11-10-2022 09:41-0400 Systolic blood pressure 110 mm[Hg] Grace Bess MD Work Phone: [facility] 09-29-2022 10:19-0400 Body height 169.8 cm Grace Bess MD Work Phone: [facility] 09-29-2022 10:19-0400 Body temperature 97.59 [degF] Grace Bess MD Work Phone: [facility] 09-29-2022 10:19-0400 Body weight 90.27 kg Grace Bess MD Work Phone: [facility] 09-29-2022 10:19-0400 Diastolic blood pressure 74 mm[Hg] Grace Bess MD Work Phone: [facility] 09-29-2022 10:19-0400 Heart rate 69 /min Grace Bess MD Work Phone: [facility] 09-29-2022 10:19-0400 Respiratory rate 16 /min Grace Bess MD Work Phone: [facility] 09-29-2022 10:19-0400 SaO2% (BldA) [Mass fraction] 97 % Grace Bess MD Work Phone: [facility] 09-29-2022 10:19-0400 Systolic blood pressure 140 mm[Hg] Grace Bess MD Work Phone: [facility] 08-02-2022 10:20-0400 Body height 169.8 cm Grace Bess MD Work Phone: [facility] 08-02-2022 10:20-0400 Body temperature 97.59 [degF] Grace Bess MD Work Phone: [facility] 08-02-2022 10:20-0400 Body weight 90.81 kg Grace Bess MD Work Phone: [facility] 08-02-2022 10:20-0400 Diastolic blood pressure 74 mm[Hg] Grace Bess MD Work Phone: [facility] 08-02-2022 10:20-0400 Heart rate 75 /min Grace Bess MD Work Phone: [facility] 08-02-2022 10:20-0400 Respiratory rate 16 /min Grace Bess MD Work Phone: [facility] 08-02-2022 10:20-0400 SaO2% (BldA) [Mass fraction] 99 % Grace Bess MD Work Phone: [facility] 08-02-2022 10:20-0400 Systolic blood pressure 145 mm[Hg] Grace Bess MD Work Phone: [facility] 06-29-2022 10:37-0500 Body height 169.8 cm Grace Bess MD Work Phone: [facility] 06-29-2022 10:37-0500 Body temperature 97.59 [degF] Grace Bess MD Work Phone: [facility] 06-29-2022 10:37-0500 Body weight 89.45 kg Grace Bess MD Work Phone: [facility] 06-29-2022 10:37-0500 Diastolic blood pressure 77 mm[Hg] Grace Bess MD Work Phone: [facility] 06-29-2022 10:37-0500 Heart rate 81 /min Grace Bess MD Work Phone: [facility] 06-29-2022 10:37-0500 Respiratory rate 18 /min Grace Bess MD Work Phone: [facility] 06-29-2022 10:37-0500 SaO2% (BldA) [Mass fraction] 99 % Grace Bess MD Work Phone: [facility] 06-29-2022 10:37-0500 Systolic blood pressure 137 mm[Hg] Grace Bess MD Work Phone: [facility] 05-11-2022 09:23-0500 Body height 169.8 cm Grace Bess MD Work Phone: [facility] 05-11-2022 09:23-0500 Body temperature 97.5 [degF] Grace Bess MD Work Phone: [facility] 05-11-2022 09:23-0500 Body weight 88.72 kg Grace Bess MD Work Phone: [facility] 05-11-2022 09:23-0500 Diastolic blood pressure 70 mm[Hg] Grace Bess MD Work Phone: [facility] 05-11-2022 09:23-0500 Heart rate 76 /min Grace Bess MD Work Phone: [facility] 05-11-2022 09:23-0500 Respiratory rate 16 /min Grace Bess MD Work Phone: [facility] 05-11-2022 09:23-0500 SaO2% (BldA) [Mass fraction] 98 % Grace Bess MD Work Phone: [facility] 05-11-2022 09:23-0500 Systolic blood pressure 130 mm[Hg] Grace Bess MD Work Phone: [facility] 04-27-2022 08:50-0500 Body height 169.8 cm Yordy Moncada APRN.CASING RUNNER Work Phone: [facility] 04-27-2022 08:50-0500 Body temperature 97.39 [degF] Yordy Moncada APRN.CASING RUNNER Work Phone: [facility] 04-27-2022 08:50-0500 Body weight 87.64 kg Yordy Keanu STRUCTURAL DRAFTSMAN.CASING RUNNER Work Phone: [facility] 04-27-2022 08:50-0500 Diastolic blood pressure 68 mm[Hg] Yordy Moncada APRN.CASING RUNNER Work Phone: [facility] 04-27-2022 08:50-0500 Heart rate 79 /min Yordy Moncada APRN.CASING RUNNER Work Phone: [facility] 04-27-2022 08:50-0500 Respiratory rate 16 /min Yordy Moncada APRN.CASING RUNNER Work Phone: [facility] 04-27-2022 08:50-0500 SaO2% (BldA) [Mass fraction] 99 % Yordy Moncada APRN.CASING RUNNER Work Phone: [facility] 04-27-2022 08:50-0500 Systolic blood pressure 136 mm[Hg] Yordy Moncada APRN.CASING RUNNER Work Phone: [facility] 04-06-2022 11:57-0500 Body height 169.8 cm Greta Rashard PA-C Work Phone: [facility] 04-06-2022 11:57-0500 Body temperature 97.3 [degF] Greta Rashard PA-C Work Phone: [facility] 04-06-2022 11:57-0500 Body weight 88.81 kg Greta Rashard PA-C Work Phone: [facility] 04-06-2022 11:57-0500 Diastolic blood pressure 73 mm[Hg] Greta Rashard PA-C Work Phone: [facility] 04-06-2022 11:57-0500 Heart rate 76 /min Greta Rashard PA-C Work Phone: [facility] 04-06-2022 11:57-0500 Respiratory rate 16 /min Greta Rashard PA-C Work Phone: [facility] 04-06-2022 11:57-0500 SaO2% (BldA) [Mass fraction] 100 % Greta Rashard PA-C Work Phone: [facility] 04-06-2022 11:57-0500 Systolic blood pressure 125 mm[Hg] Greta Rashard PA-C Work Phone: [facility] 03-30-2022 10:46-0500 Body height 169.8 cm Greta Rashard PA-C Work Phone: [facility] 03-30-2022 10:46-0500 Body temperature 97.81 [degF] Greta Rashard PA-C Work Phone: [facility] 03-30-2022 10:46-0500 Body weight 87.64 kg Greta Rashard PA-C Work Phone: [facility] 03-30-2022 10:46-0500 Diastolic blood pressure 72 mm[Hg] Greta Rashard PA-C Work Phone: [facility] 03-30-2022 10:46-0500 Heart rate 69 /min Greta Rashard PA-C Work Phone: [facility] 03-30-2022 10:46-0500 Respiratory rate 16 /min Greta Rashard PA-C Work Phone: [facility] 03-30-2022 10:46-0500 SaO2% (BldA) [Mass fraction] 98 % Greta Rashard PA-C Work Phone: [facility] 03-30-2022 10:46-0500 Systolic blood pressure 136 mm[Hg] Greta Rashard PA-C Work Phone: [facility] 03-16-2022 08:36-0400 Body height 169.8 cm Greta Rashard PA-C Work Phone: [facility] 03-16-2022 08:36-0400 Body temperature 97.81 [degF] Greta Rashard PA-C Work Phone: [facility] 03-16-2022 08:36-0400 Body weight 87.45 kg Greta Rashard PA-C Work Phone: [facility] 03-16-2022 08:36-0400 Diastolic blood pressure 75 mm[Hg] Greta Rashard PA-C Work Phone: [facility] 03-16-2022 08:36-0400 Heart rate 70 /min Greta Rashard PA-C Work Phone: [facility] 03-16-2022 08:36-0400 Respiratory rate 16 /min Greta Rashard PA-C Work Phone: [facility] 03-16-2022 08:36-0400 SaO2% (BldA) [Mass fraction] 97 % Greta Rashard PA-C Work Phone: [facility] 03-16-2022 08:36-0400 Systolic blood pressure 143 mm[Hg] Greta Rashard PA-C Work Phone: [facility] 03-09-2022 08:59-0400 Body height 172.7 cm Grace Bess MD Work Phone: [facility] 03-09-2022 08:59-0400 Body temperature 97.5 [degF] Grace Bess MD Work Phone: [facility] 03-09-2022 08:59-0400 Body weight 86.27 kg Grace Bess MD Work Phone: [facility] 03-09-2022 08:59-0400 Diastolic blood pressure 66 mm[Hg] Grace Bess MD Work Phone: [facility] 03-09-2022 08:59-0400 Heart rate 70 /min Grace Bess MD Work Phone: [facility] 03-09-2022 08:59-0400 Respiratory rate 16 /min Grace Bess MD Work Phone: [facility] 03-09-2022 08:59-0400 SaO2% (BldA) [Mass fraction] 98 % Grace Bess MD Work Phone: [facility] 03-09-2022 08:59-0400 Systolic blood pressure 143 mm[Hg] Grace Bess MD Work Phone: [facility] 02-22-2022 10:17-0400 Body height 172.7 cm Grace Bess MD Work Phone: [facility] 02-22-2022 10:17-0400 Body temperature 98.01 [degF] Grace Bess MD Work Phone: [facility] 02-22-2022 10:17-0400 Body weight 86.46 kg Grace Bess MD Work Phone: [facility] 02-22-2022 10:17-0400 Diastolic blood pressure 73 mm[Hg] Grace Bess MD Work Phone: [facility] 02-22-2022 10:17-0400 Heart rate 70 /min Grace Bess MD Work Phone: [facility] 02-22-2022 10:17-0400 Respiratory rate 16 /min Grace Bess MD Work Phone: [facility] 02-22-2022 10:17-0400 SaO2% (BldA) [Mass fraction] 99 % Grace Bess MD Work Phone: [facility] 02-22-2022 10:17-0400 Systolic blood pressure 135 mm[Hg] Grace Bess MD Work Phone: [facility] 10-22-2021 11:10-0400 Diastolic blood pressure 76 mm[Hg] Eyad Manriquez MD Work Phone: [facility] 10-22-2021 11:10-0400 Heart rate 64 /min Eyad Manriquez MD Work Phone: [facility] 10-22-2021 11:10-0400 Respiratory rate 16 /min Eyad Manriquez MD Work Phone: [facility] 10-22-2021 11:10-0400 SaO2% (BldA) [Mass fraction] 98 % Eyad Manriquez MD Work Phone: [facility] 10-22-2021 11:10-0400 Systolic blood pressure 130 mm[Hg] Eyad Manriquez MD Work Phone: [facility] 10-22-2021 10:50-0400 Body temperature 97.7 [degF] Eyad Manriquez MD Work Phone: [facility] 10-22-2021 09:48-0400 Body height 172.7 cm Eyad Manriquez MD Work Phone: [facility] 10-22-2021 09:48-0400 Body weight 86.18 kg Eyad Manriquez MD Work Phone: [facility] Encounters Encounter Date Encounter Type Care Provider Facility Start: 04-04-2024 End: 04-08-2024 Telephone encounter Allie Cortez RN Work Phone: Hematology/Oncology Comment on above: Care Coordination (C A 19.9) Start: 04-04-2024 End: 04-04-2024 ambulatory Chair 20 Danny Work Phone: Hematology/Oncology Comment on above: Malignant neoplasm o f head of pancreas (HCC) (Primary Dx) Start: 04-02-2024 End: 04-02-2024 Patient encounter procedure Yordy Moncada APRN.CASING [employer]NER Work Phone: Hematology/Oncology Start: 04-02-2024 End: 04-02-2024 ambulatory [facility] Work Phone: Hematology/Oncology Comment on above: Malignant neoplasm o f head of pancreas (HCC) Malignant neoplasm o f head of pancreas (HCC) (Primary Dx) Malignant neoplasm o f head of pancreas (HCC) (Primary Dx); Central line complication, initial encounter; Neuropathy; Type 2 diabetes mellitus without complication, with long-term current use of insulin (HCC) Start: 04-01-2024 End: 04-01-2024 Transitional care manage srvc 14 day discharge Giovanni Salinas MD Work Phone: [facility] Comment on above: Pneumonia of left lo wer lobe due to infectious organism (Primary Dx); Pancreatic adenocarcinoma (CMS/HCC); Immunosuppressed status (CMS/HCC) Start: 04-01-2024 End: 04-01-2024 ambulatory GIOVANNI SALINAS Not Available Start: 04-01-2024 End: 04-01-2024 Bamboo flowsheet Giovanni Salinas MD Work Phone: [facility] Start: 04-01-2024 End: 04-01-2024 Bamboo flowsheet Giovanni Salinas MD Work Phone: [facility] Start: 03-24-2024 End: 03-27-2024 Clinisync Result Encounter Generic External Data Provider [facility] External Department Unsolicited Start: 03-24-2024 End: 03-27-2024 Clinisync Result Encounter Generic External Data Provider [facility] External Department Unsolicited Start: 03-18-2024 End: 03-18-2024 Telephone encounter Yordy Moncada APRN.CNP Work Phone: Hematology/Oncology Comment on above: Lab Orders Start: 03-07-2024 End: 03-07-2024 Telephone encounter Josephine Salomon RN Work Phone: Hematology/Oncology Comment on above: Care Coordination (T umor marker results) Start: 03-07-2024 End: 03-07-2024 ambulatory Chair 20 Danny Work Phone: Hematology/Oncology [...] Start: 02-14-2024 End: 02-14-2024 ambulatory Chair 20 [employer] Work Phone: Hematology/Oncology Comment on above: Malignant neoplasm o f head of pancreas (HCC) (Primary Dx) Start: 02-12-2024 End: 02-12-2024 Patient encounter procedure Vivek Smith MD Work Phone: Hematology/Oncology Start: 02-12-2024 End: 02-12-2024 ambulatory Lab[facility] [place] [facility] [place] Work Phone: Hematology/Oncology Comment on above: Malignant neoplasm o f head of pancreas (HCC) Malignant neoplasm o f head of pancreas (HCC) (Primary Dx) Start: 01-25-2024 End: 01-25-2024 ambulatory Chair 20 [employer] Work Phone: Hematology/Oncology Comment on above: Malignant neoplasm o f head of pancreas (HCC) (Primary Dx) Start: 01-23-2024 End: 01-23-2024 Office outpatient visit 15 minutes Greta Wetzel Dealised Work Phone: Hematology/Oncology Comment on above: Malignant neoplasm o f head of pancreas (HCC) (Primary Dx) Start: 01-23-2024 End: 01-23-2024 ambulatory [facility] [place] [facility] [place] Work Phone: Hematology/Oncology Comment on above: Malignant neoplasm o f head of pancreas (HCC) Malignant neoplasm o f head of pancreas (HCC) (Primary Dx) Start: 01-05-2024 End: 01-05-2024 ambulatory Chair 20 [employer] Work Phone: Hematology/Oncology Comment on above: Malignant neoplasm o f head of pancreas (HCC) (Primary Dx) Start: 01-04-2024 Telephone encounter Key Osorio Hematology/Oncology Comment on above: Results Start: 01-03-2024 End: 01-03-2024 Office outpatient visit 15 minutes Greta Wetzel PA-Whitetruffle Work Phone: Hematology/Oncology Comment on above: Malignant neoplasm o f head of pancreas (HCC) (Primary Dx); Central line complication, initial encounter Start: 01-03-2024 End: 01-03-2024 ambulatory [facility] [place] [facility] [place] Work Phone: Hematology/Oncology Comment on above: Malignant neoplasm o f head of pancreas (HCC) Malignant neoplasm o f head of pancreas (HCC) (Primary Dx) Start: 01-02-2024 End: 01-10-2024 Telephone encounter Gerta Wetzel PA-C Work Phone: Hematology/Oncology Comment on above: Lab Orders Start: 12-29-2023 End: 12-29-2023 ambulatory KARUNAKARAVEL KARUPPASAMY Facility:[facility] Start: 12-27-2023 Telephone encounter Adina Schmitz RN [facility] Radiology Procedure Comment on above: Radiology Pre Proced ure Instructions Start: 12-26-2023 Telephone encounter Luisa Cameron RN [facility] Radiology Procedure Comment on above: Radiology Pre Proced ure Instructions Start: 12-25-2023 Telephone encounter Donnell Swenson RN [facility] Radiology Procedure Start: 12-13-2023 End: 12-13-2023 [...] 11-20-2023 End: 11-21-2023 ambulatory [facility] Work Phone: Hematology/Oncology Comment on above: Malignant neoplasm o f head of pancreas (HCC) Malignant neoplasm o f head of pancreas (HCC) (Primary Dx) Start: 11-17-2023 End: 11-17-2023 ambulatory GIOVANNI SALINAS II Facility:[facility] Start: 11-17-2023 End: 11-17-2023 Subsequent hospital visit by physician Arrival Time Radiology Work Phone: Radiology [facility] Comment on above: Malignant neoplasm o f head of pancreas (HCC) [C25.0] Start: 11-02-2023 End: 11-02-2023 ambulatory Chair 20 Danny Work Phone: Hematology/Oncology Comment on above: Malignant neoplasm o f head of pancreas (HCC) (Primary Dx) Start: 11-02-2023 End: 11-02-2023 Office outpatient visit 10 minutes Greta Weztel PA-C Work Phone: Hematology/Oncology Comment on above: [...] call) Start: 10-13-2023 Telephone encounter Shanta Cid supervisor riprap placing/Oncology Comment on above: Patient Question Start: 10-13-2023 End: 10-13-2023 ambulatory Chair Hannah [...] encounter Greta woodson PA-C Work Phone: [facility] Comment on above: Radiology US Start: 10-03-2023 [...] (HCC); Neuropathy Start: 09-25-2023 Telephone encounter Greta QUINTEROC Work Phone: Hematology/Oncology Comment on above: Lab Orders Start: 09-18-2023 Telephone encounter Josephine Salomon RN Work Phone: Hematology/Oncology Comment on above: Care Coordination (c ough) Start: 09-15-2023 End: 09-15-2023 ambulatory Chair Hannah Delgado Work Phone: Hematology/Oncology Comment on above: Malignant neoplasm o f head of pancreas (HCC) (Primary Dx) Start: 09-13-2023 End: 09-13-2023 Nutrition therapy Yordy Moncada APRN.[employer]ING [employer]NER Work Phone: Hematology/Oncology Comment on above: Malignant neoplasm o f head of pancreas (HCC) (Primary Dx); Type 2 diabetes mellitus without complication, with long-term current use of insulin (HCC); Neuropathy; Severe protein-calorie malnutrition (HCC); Diabetes mellitus due to underlying condition with diabetic polyneuropathy, without long-term current use of insulin (HCC) Start: 09-13-2023 End: 09-13-2023 Patient encounter procedure Yordy Moncada APRN.[employer]ING [employer]NER Work Phone: Hematology/Oncology Start: 09-13-2023 End: 09-13-2023 ambulatory [facility] [place] [facility] [place] Work Phone: Hematology/Oncology Comment on above: Malignant neoplasm o f head of pancreas (HCC) Malignant neoplasm o f head of pancreas (HCC) (Primary Dx) Start: 08-25-2023 End: 08-25-2023 ambulatory GIOVANNI SALINAS Facility:[facility] Start: 08-23-2023 End: 08-23-2023 Patient encounter procedure Grace Bess MD Work Phone: [facility] Start: 08-23-2023 End: 08-23-2023 ambulatory [facility] Work Phone: Hematology/Oncology Comment on above: Malignant neoplasm o f head of pancreas (HCC) Malignant neoplasm o f head of pancreas (HCC) (Primary Dx) Start: 08-18-2023 End: 08-18-2023 [facility] Start: 08-18-2023 End: 08-18-2023 Subsequent hospital visit by physician Arrival Time Radiology Work Phone: Radiology [facility] CT Comment on above: Malignant neoplasm o f head of pancreas (HCC) [C25.0] Start: 08-09-2023 Telephone encounter Josephine Salomon RN Work Phone: Hematology/Oncology Comment on above: Care Coordination (A ppointment cancellation) Start: 08-04-2023 End: 08-04-2023 ambulatory GIOVANNI SALINAS Facility:[facility] Start: 08-04-2023 End: 08-04-2023 ambulatory Chair [...] Yordy Moncada APRN.CNP Work Phone: [facility] Start: 07-05-2023 End: 07-05-2023 ambulatory [facility] Work Phone: Hematology/Oncology Comment on above: Malignant neoplasm o f head of pancreas (HCC) Malignant neoplasm o f head of pancreas (HCC) (Primary Dx) Start: 06-23-2023 Telephone encounter Josephine Salomon RN Work Phone: Hematology/Oncology Comment on above: Care Coordination (L ab results) Start: 06-23-2023 End: 06-26-2023 ambulatory Chair 20 Danny Work Phone: Hematology/Oncology Comment on above: Malignant neoplasm o f head of pancreas (HCC) (Primary Dx) Start: 06-21-2023 End: 06-21-2023 ambulatory GIOVANNI B BRAD II Facility:[facility] Start: 06-21-2023 End: 06-21-2023 ambulatory GIOVANNI B BRAD II Facility:[facility] Start: 06-09-2023 End: 06-09-2023 ambulatory GIOVANNI B SALINAS II Facility:[facility] Start: 06-07-2023 End: 06-07-2023 ambulatory GIOVANNI B SALINAS II Facility:[facility] Start: 06-07-2023 End: 06-07-2023 ambulatory GIOVANNI B SALINAS II Facility:[facility] Start: 05-24-2023 End: 05-24-2023 ambulatory GIOVANNI B SALINAS II Facility:[facility] Start: 05-18-2023 End: 05-18-2023 ambulatory GIOVANNI B SALINAS II Facility:[facility] Start: 05-18-2023 End: 05-18-2023 Subsequent hospital visit by physician Arrival Time Radiology Work Phone: Radiology [facility] CT Comment on above: Malignant neoplasm o f head of pancreas (HCC) [C25.0] Start: 05-12-2023 End: 05-12-2023 ambulatory GIOVANNI B SALINAS II Facility:[facility] Start: 05-08-2023 Telephone encounter Grace rebolledo MD Work Phone: Hematology/Oncology Comment on above: Orders Start: 05-05-2023 End: 05-05-2023 Patient encounter procedure Grace Bess MD Work Phone: [facility] Start: 05-05-2023 End: 05-08-2023 ambulatory Grace Bess MD Work Phone: Hematology/Oncology Comment on above: Malignant neoplasm o f head of pancreas (HCC) (Primary Dx) Start: 05-05-2023 End: 05-05-2023 Nutrition therapy Lab[facility] Work Phone: Hematology/Oncology Comment on above: Type 2 diabetes chris itus without complication, with long-term current use of insulin (HCC); Severe protein-calorie malnutrition (HCC); Malignant neoplasm of head of pancreas (HCC); Anemia, unspecified type Start: 04-27-2023 End: 04-27-2023 ambulatory GIOVANNI SALINAS Not Available Start: 04-25-2023 Patient encounter status Generic Provider [facility] Start: 04-07-2023 Telephone encounter Josephine Salomon RN Work Phone: Hematology/Oncology Comment on above: Care Coordination (T umor marker results) Start: 04-05-2023 End: 04-05-2023 Nutrition therapy Yordy Moncada APRN.[employer]ING [employer]NER Work Phone: Hematology/Oncology Comment on above: Malignant neoplasm o f head of pancreas (HCC) (Primary Dx); Type 2 diabetes mellitus without complication, with long-term current use of insulin (HCC); Severe protein-calorie malnutrition (HCC); Anemia, unspecified type Start: 04-05-2023 End: 04-05-2023 Patient encounter procedure Yordy Moncada APRN.CASING [employer]NER Work Phone: [facility] Start: 04-05-2023 End: 04-05-2023 ambulatory [facility] Work Phone: Hematology/Oncology Comment on above: Malignant neoplasm o f other parts of pancreas (HCC); Type 2 diabetes mellitus without complication, with long-term current use of insulin (HCC); LINDSEY (dyspnea on exertion) Malignant neoplasm o f head of pancreas (HCC) (Primary Dx) Start: 04-04-2023 Telephone encounter Greta M Marcus woodson PA-C Work Phone: Hematology/Oncology Comment on above: Results; Care Coordi nation (Tumor marker results) Start: 03-30-2023 End: 03-30-2023 Nutrition therapy Greta Jacoby Rashard JOHNSON Work Phone: Hematology/Oncology Comment on above: Malignant neoplasm o f other parts of pancreas (HCC) (Primary Dx); Type 2 diabetes mellitus without complication, with long-term current use of insulin (HCC); Severe protein-calorie malnutrition (HCC) Start: 03-30-2023 End: 03-30-2023 Patient encounter procedure Greta Wetzel PA-C Work Phone: [facility] Start: 03-08-2023 End: 03-08-2023 Patient encounter procedure Grace Bess MD Work Phone: [facility] Start: 03-08-2023 End: 03-08-2023 ambulatory [facility] [place] [facility] [place] Work Phone: Hematology/Oncology Comment on above: Malignant neoplasm o f other parts of pancreas (HCC) Malignant neoplasm o f other parts of pancreas (HCC) (Primary Dx) Malignant neoplasm o f head of pancreas (HCC) (Primary Dx) Start: 03-02-2023 Telephone encounter Josephine Salomon RN Work Phone: Hematology/Oncology Comment on above: Care Coordination (T umor marker results) Start: 03-01-2023 End: 03-01-2023 ambulatory [facility] [place] [facility] [place] Work Phone: Hematology/Oncology Comment on above: Malignant neoplasm o f other parts of pancreas (HCC) Malignant neoplasm o f head of pancreas (HCC) (Primary Dx) Start: 02-08-2023 End: 02-08-2023 ambulatory Chair 11 Danny Work Phone: Hematology/Oncology Comment on above: [...] 12-21-2022 End: 12-21-2022 ambulatory [facility] [place] [facility] [place] Work Phone: Hematology/Oncology Comment on above: Malignant neoplasm o f other parts of pancreas (HCC) (Primary Dx) LINDSEY (dyspnea on exer tion) (Primary Dx) Start: 12-15-2022 End: 12-15-2022 Emergency department patient visit II Giovanni Salinas Work Phone: [facility]gency [facility] Work Phone: Start: 12-14-2022 End: 12-14-2022 ambulatory Lab[facility] [place] [facility] [place] Work Phone: Hematology/Oncology Comment on above: Malignant neoplasm o f head of pancreas (HCC) Malignant neoplasm o f head of pancreas (HCC) (Primary Dx) Start: 12-06-2022 Patient encounter procedure [facility] Provider [facility] Department Start: 12-05-2022 Telephone encounter [...] 12-05-2022 End: 12-05-2022 ambulatory [facility] [place] [facility] [place] Work Phone: Hematology/Oncology Comment on above: Malignant neoplasm o f head of pancreas (HCC) Start: 11-30-2022 End: 11-30-2022 Patient encounter procedure Grace Bess MD Work Phone: [facility] Start: 11-30-2022 End: 11-30-2022 ambulatory [facility] [place] Work Phone: [...] Phone: [facility] Start: 11-23-2022 Telephone encounter Greta ODEN-Whitetruffle Work Phone: [facility] Comment on above: Future Appointment Start: 11-23-2022 End: 11-23-2022 ambulatory [facility] Work Phone: [...] Comment on above: Research (IRB# [id number] Informed Consent) Start: 11-03-2022 End: 11-03-2022 Subsequent [...] pancreas (HCC) Start: 08-03-2022 Refill Adina Colón [facility] Comment on above: [...] 06-01-2022 End: 06-01-2022 ambulatory [facility] [place] [facility] [place] Work Phone: Hematology/Oncology Comment on above: Malignant [...] encounter procedure Grace Bess MD Work Phone: [employer] Start: 05-11-2022 End: 05-11-2022 ambulatory [facility] [place] [...] encounter procedure Yordy Moncada APRN.CNP Work Phone: [employer] Start: 04-26-2022 End: 04-26-2022 ambulatory [facility] [place] [facility] [place] Work Phone: Hematology/Oncology Comment on above: Malignant neoplasm o f head of pancreas (HCC) Start: 04-20-2022 Telephone encounter Josephine Salomon RN Work Phone: Hematology/Oncology Comment on above: Care Coordination (M edication clarification) Start: 04-20-2022 End: 04-20-2022 ambulatory [facility] Work Phone: Hematology/Oncology Comment on above: Malignant neoplasm o f head of pancreas (HCC) Start: 04-06-2022 End: 04-06-2022 Patient encounter procedure Greta M Rashard PA-C Work Phone: [facility] Start: 04-06-2022 End: 04-06-2022 ambulatory Greta M Rashard PA-C Work Phone: Hematology/Oncology Comment on [...] clarification) Start: 03-30-2022 End: 03-30-2022 ambulatory Greta Wetzel PA-C Work Phone: Hematology/Oncology Comment on above: Malignant neoplasm o f head of pancreas (HCC) (Primary Dx); Anemia, unspecified type Start: 03-30-2022 End: 03-30-2022 Patient encounter procedure Greta Wetzel PA-C Work Phone: [facility] Start: 03-28-2022 Telephone encounter Jose Antonio LARSON Work Phone: [facility] Comment on above: Results Start: 03-17-2022 Telephone encounter Josephine Salomon RN Work Phone: Hematology/Oncology Comment on above: Care Coordination (S tool results) Start: 03-16-2022 End: 03-16-[address] Work Phone: Nutrition Therapy Comment on above: Nutrition Counseling Start: 03-16-2022 End: 03-16-2022 Telemedicine consultation with patient Jose Antonio LARSON Work Phone: [facility] Start: 03-16-2022 End: 03-16-2022 Patient encounter procedure Greta Wetzel PA-C Work Phone: [facility] Start: 03-16-2022 End: [...] on Care Coordination (A ntiemetics transferred to [facility] in [place]) Start: 03-09-2022 End: 03-09-2022 Nutrition therapy Ibis [...] Start: 02-25-2022 Telephone encounter Vel Sims RN [facility] Radiology Procedure Comment on above: Radiology Pre Proced ure Instructions Start: 02-23-2022 Orders Only Antoinette Marina RN [facility] Radiology Procedure Comment on above: [...] encounter procedure Grace Bess MD Work Phone: [place] Start: 02-17-2022 End: 02-18-2022 Patient encounter procedure [...] End: 02-11-2021 Evaluation and management of inpatient [facility] Start: 01-22-2021 End: 02-19-[address] [...] End: 04-16-2020 Patient encounter procedure FARA MONACO [facility] Start: 04-15-2020 End: 04-15-2020 Subsequent hospital visit by physician Giovanni Salinas [facility] Start: 03-16-2020 End: 03-17-2020 Patient encounter procedure GIOVANNI SALINAS [facility] Start: 03-16-2020 End: 03-16-2020 Subsequent hospital visit by physician [facility] Start: 11-23-2019 Patient encounter status Eyad Manriquez MD Work Phone: [facility] Work Phone: Procedures Date Procedure Procedure Detail Performing Clinician Start: 04-02-2024 Blood count complete auto&auto difrntl wbc Vivek Smith MD Work Phone: Start: 03-24-2024 BLOOD CULTURE 2 Generic External Data Provider Start: 03-24-2024 BLOOD CULTURE 1 Generic External Data Provider Start: 03-05-2024 [facility] CBC W AUTO DIFF BLD Generic External Data Provider Start: 03-05-2024 Blood count complete auto&auto difrntl wbc Vivek Smith MD Work Phone: Start: 02-12-2024 Blood count complete auto&auto difrntl wbc Greta Wetzel PA-C Work Phone: Start: 01-23-2024 Blood count complete auto&auto difrntl wbc Greta Wetzel PA-C Work Phone: Start: 01-23-2024 Comprehensive metabo lic 2000 panel - Serum or Plasma Greta Wetzel PA-C Work Phone: Start: 01-03-2024 Blood count [...] wbc Greta Wetzel PA-C Work Phone: Start: 10-11-2023 Urnls dip stick/tabl et rgnt auto w/o microscopy [facility] Provider Start: 10-11-2023 Blood count complete auto&auto difrntl wbc Greta Wetzel PA-C Work Phone: Start: 10-03-2023 Radiologic exam ches t 2 views Greta Wetzel PA-C Work Phone: Start: 10-03-2023 [...] count complete auto&auto difrntl wbc Yordy Moncada [employer]FTSM[employer].CAS[employer]NER Work Phone: Start: 07-19-2023 Blood count complete auto&auto difrntl wbc Yordy Moncada [employer] DRAFTSM[employer]ING [employer]NER Work Phone: Start: 07-05-2023 [facility] CBC W AUTO DIFF BLD Generic External Data Provider Start: 07-05-2023 Blood count complete auto&auto difrntl wbc Grace Bess MD Work Phone: Start: 05-18-2023 Ct abdomen & pelvis w/contrast material Grace Bess MD Work Phone: Start: 05-18-2023 Ct thorax w/contrast material Grace Bess MD Work Phone: Start: 05-18-2023 CREATININE BLD Greta Wetzel PA-C Work Phone: Start: 05-05-2023 Blood count complete auto&auto difrntl wbc Yordy Moncada [employer] DRAFTSM[employer]ING [employer]NER Work Phone: Start: 04-05-2023 Blood count complete auto&auto difrntl wbc Yordy Moncada [employer] DRAFTSM[employer]ING [employer]NER Work Phone: Start: 03-08-2023 Blood count complete [...] Blood count complete auto&auto difrntl wbc Greta ODEN-C Work Phone: Start: 11-23-2022 Blood count complete [...] Phone: Start: 04-06-2022 CBC + DIFF Greta Velazquez sser PA-C Work Phone: Start: 04-06-2022 Comprehensive [...] 1996 panel - S dusty or Plasma [facility] [place] Work Phone: Start: 11-13-2019 Colonoscopy Generic Pr ovider Plan of Treatment Date Care Activity Detail Author Start: 12-15-2032 Urine microalbumin profile [facility] Start: 12-04-2030 Screening for malign ant neoplasm of colon [facility] Start: 11-12-2029 Screening for malign ant neoplasm of colon [facility] Start: 05-05-2026 Diabetes Screening Diabetes [facility] Start: 04-05-2026 Diabetes Screening Diabetes [facility] Start: 03-30-2026 Diabetes Screening Diabetes [facility] Start: 03-08-2026 Diabetes Screening Diabetes [facility] Start: 03-01-2026 Diabetes Screening Diabetes [facility] Start: 02-08-2026 Diabetes Screening Diabetes [facility] Start: 02-01-2026 [facility] [facility] Start: 01-04-2026 DIABETES SCREEN DIABETES SCREEN [facility] Start: 12-21-2025 DIABETES SCREEN DIABETES SCREEN [facility] Start: 12-14-2025 DIABETES SCREEN DIABETES SCREEN [facility] Start: 11-30-2025 DIABETES SCREEN DIABETES SCREEN [facility] Start: 11-23-2025 DIABETES SCREEN DIABETES SCREEN [facility] Start: 11-10-2025 DIABETES SCREEN DIABETES SCREEN [facility] Start: 10-26-2025 DIABETES SCREEN DIABETES SCREEN [facility] Start: 09-29-2025 DIABETES SCREEN DIABETES SCREEN [facility] Start: 08-02-2025 DIABETES SCREEN DIABETES SCREEN [facility] Start: 06-29-2025 DIABETES SCREEN DIABETES SCREEN [facility] Start: 06-01-2025 DIABETES SCREEN DIABETES SCREEN [facility] Start: 05-11-2025 DIABETES SCREEN DIABETES SCREEN [facility] Start: 04-26-2025 DIABETES SCREEN DIABETES SCREEN [facility] Start: 04-20-2025 DIABETES SCREEN DIABETES SCREEN [facility] Start: 04-06-2025 DIABETES SCREEN DIABETES SCREEN [facility] Start: 03-30-2025 DIABETES SCREEN DIABETES SCREEN [facility] Start: 03-16-2025 DIABETES SCREEN DIABETES SCREEN [facility] Start: 03-07-2025 DIABETES SCREEN DIABETES SCREEN [facility] Start: 12-21-2024 Urine screening for protein Diabetes: Urine Protein Screening [facility] Start: 11-23-2024 Lipid 1996 panel - S dusty or Plasma Lipid Screening [facility] Start: 11-23-2024 Lipid panel Lipid Screening [facility] Start: 11-23-2024 LIPID SCREEN LIPID SCREEN [facility] Start: 11-16-2024 Screening for malign ant neoplasm of lung Lung Cancer Screening [facility] Start: 08-17-2024 Screening for malign ant neoplasm of lung Lung Cancer Screening [facility] Start: 05-28-2024 End: 05-28-2024 Patient encounter procedure 05/28/2024 11:20 AM EST Office Visit [facility] END[facility] [address] [place] [id number] César Leiva MD [address] [place] [address] [facility] Start: 05-18-2024 Screening for malign ant neoplasm of lung Lung Cancer Screening [facility] Start: 04-27-2024 Hemoglobin A1c measurement HbA1C [facility] Start: 04-27-2024 Pneumococcal Vaccine : 65+ Years (1 - PCV) Pneumococcal Vaccine: 65+ Years (1 - PCV) [facility] Comment on above: Postponed from 04/21 (Patient Refused) Start: 04-27-2024 Pneumococcal Vaccine : 65+ Years (1 of 2 - PCV) Pneumococcal Vaccine: 65+ Years (1 of 2 - PCV) [facility] Comment on above: Postponed from 04/21 (Patient Refused) Start: 04-26-2024 End: 04-26-2024 ambulatory 04/26/2024 11:00 AM EST Infusion Center Hematology/Oncology [address] [place] [address] [place] [address] pump disconnect Hematology/Oncology Comment on above: pump disconnect Start: 04-24-2024 End: 07-24-2024 Cancer Ag 19-9 [Units/volume] in Serum or Plasma CA 19-9 Lab Routine Malignant neoplasm of head of pancreas (HCC) Central line complication, initial encounter Neuropathy Type 2 diabetes mellitus without complication, with long-term current use of insulin (HCC) Expected: 04/24/2024, Expires: 07/24/2024 [facility] Comment on above: Expected: 04/24/2024 , Expires: 07/24/2024 Start: 04-24-2024 End: 07-24-2024 CBC W Auto Differential panel - Blood COMPLETE BLOOD COUNT AND DIFFERENTIAL Lab Routine Malignant neoplasm of head of pancreas (HCC) Central line complication, initial encounter Neuropathy Type 2 diabetes mellitus without complication, with long-term current use of insulin (HCC) Expected: 04/24/2024, Expires: 07/24/2024 [facility] Work Phone: Comment on above: Expected: 04/24/2024 , Expires: 07/24/2024 Start: 04-24-2024 End: 07-24-2024 Comprehensive metabolic 2000 panel - Serum or Plasma COMPREHENSIVE METABOLIC PANEL Lab Routine Malignant neoplasm of head of pancreas (HCC) Central line complication, initial encounter Neuropathy Type 2 diabetes mellitus without complication, with long-term current use of insulin (HCC) Expected: 04/24/2024, Expires: 07/24/2024 [facility] Comment on above: Expected: 04/24/2024 , Expires: 07/24/2024 Start: 04-24-2024 End: 04-24-2024 Follow-up encounter Hematology/Oncology Comment on above: 3 week follow up and chemotx Julia // pump connect 3 week follow up and chemotx Julia-PORT // pump connect Start: 04-23-2024 End: 04-23-2024 Follow-up encounter Hematology/Oncology Comment on above: 3 week follow up and chemotx Julia // pump connect 3 week follow up and chemotx Julia-PORT // pump connect Start: 04-19-2024 End: 04-19-2024 Patient encounter procedure 04/19/2024 11:15 AM EST Appointment Radiology Pet CT [address] [place] [address] [place] [address] CT CAP with IVC Radiology Pet CT Comment on above: CT CAP with IVC Start: 04-04-2024 End: 04-04-2024 ambulatory 04/04/2024 10:30 AM EST Infusion Center Hematology/Oncology [address] [place] [address] pump disconnect Hematology/Oncology Comment on above: pump disconnect Start: 04-01-2024 End: 04-01-2024 Patient encounter procedure 04/01/2024 2:30 PM EST Office Visit [facility] [address] [facility] [address] [place] [address] Giovanni Salinas MD [address] [facility] [address] [place] [address] [facility] Start: 03-29-2024 End: 03-29-2024 Follow-up encounter 03/29/2024 11:00 AM EST Infusion Center Hematology/Oncology [facility] [address] [facility] [place] [address] 3 week follow up and chemotx Julia // pump connect Hematology/Oncology Comment on above: 3 week follow up and chemotx Julia // pump connect Start: 03-27-2024 End: 06-26-2024 Cancer Ag 19-9 [Units/volume] in Serum or Plasma CA 19-9 Lab Routine Malignant neoplasm of head of pancreas (HCC) Expected: 03/27/2024, Expires: 06/26/2024 [facility] Comment on above: Expected: 03/27/2024 , Expires: 06/26/2024 Start: 03-27-2024 End: 06-26-2024 CBC W Auto Differential panel - Blood COMPLETE BLOOD COUNT AND DIFFERENTIAL Lab Routine Malignant neoplasm of head of pancreas (HCC) Expected: 03/27/2024, Expires: 06/26/2024 [facility] Work Phone: Comment on above: Expected: 03/27/2024 , Expires: 06/26/2024 Start: 03-27-2024 End: 06-26-2024 Comprehensive metabolic 2000 panel - Serum or Plasma COMPREHENSIVE METABOLIC PANEL Lab Routine Malignant neoplasm of head of pancreas (HCC) Expected: 03/27/2024, Expires: 06/26/2024 [facility] Comment on above: Expected: 03/27/2024 , Expires: 06/26/2024 Start: 03-27-2024 End: 03-27-2024 Follow-up encounter Hematology/Oncology Comment on above: 3 week follow up and chemotx Julia // pump connect 3 week follow up and chemotx Julia-PORT // pump connect Start: 03-07-2024 End: 03-07-2024 Follow-up encounter 03/07/2024 11:00 AM [facility] Infusion Center Hematology/Oncology [address] [place] [address] [place] [address] 3 week follow up and chemotx Julia // pump connect Hematology/Oncology Comment on above: 3 week follow up and chemotx Julia // pump connect Start: 03-05-2024 End: 06-04-2024 Cancer Ag 19-9 [Units/volume] in Serum or Plasma [facility] Work Phone: Comment on above: Expected: 03/05/2024 , Expires: 06/04/2024 Start: 03-05-2024 End: 03-05-2024 Follow-up encounter Hematology/Oncology Comment on above: 3 week follow up and chemotx Julia // pump connect Start: 02-14-2024 End: 02-14-2024 Follow-up encounter 02/14/2024 10:30 AM [facility] Infusion Center Hematology/Oncology [address] [place] [address] [place] [address] 3 week follow up and chemotx Julia // pump connect Hematology/Oncology Comment on above: 3 week follow up and chemotx Julia // pump connect Start: 02-12-2024 DIABETES SCREEN DIABETES SCREEN [facility] Start: 02-12-2024 End: 02-12-2024 Follow-up encounter Hematology/Oncology Comment on above: 3 week follow up and chemotx Julia // pump connect Start: 01-27-2024 Hemoglobin A1c measurement Diabetes: Hemoglobin A1C [facility] Start: 01-25-2024 End: 01-25-2024 Follow-up encounter 01/25/2024 10:30 AM [facility] Infusion Center Hematology/Oncology [address] [place] [address] [place] [address] 3 week follow up and chemotx Julia // pump connect Hematology/Oncology Comment on above: 3 week follow up and chemotx Julia // pump connect Start: 01-23-2024 End: 04-23-2024 Cancer Ag 19-9 [Units/volume] in Serum or Plasma [facility] Comment on above: Expected: 01/23/2024 , Expires: 04/23/2024 Start: 01-23-2024 End: 04-23-2024 CBC W Auto Differential panel - Blood COMPLETE BLOOD COUNT AND DIFFERENTIAL Lab Routine Malignant neoplasm of head of pancreas (HCC) Expected: 01/23/2024, Expires: 04/23/2024 [facility] Comment on above: Expected: 01/23/2024 , Expires: 04/23/2024 Start: 01-23-2024 End: 04-23-2024 Comprehensive metabolic 2000 panel - Serum or Plasma [facility] Work Phone: Comment on above: Expected: 01/23/2024 , Expires: 04/23/2024 Start: 01-23-2024 End: 01-23-2024 Follow-up encounter Hematology/Oncology Comment on above: 3 week follow up and chemotx Julia // pump connect Start: 01-21-2024 Influenza vaccination [facility] Start: 01-05-2024 End: 01-05-2024 ambulatory Hematology/Oncology Comment on above: pump disconnect pump dc Start: 01-03-2024 End: 04-03-2024 Cancer Ag 19-9 [Units/volume] in Serum or Plasma [facility] Work Phone: Comment on above: Expected: 01/03/2024 , Expires: 04/03/2024 Start: 01-03-2024 End: 04-03-2024 CBC W Auto Differential panel - Blood COMPLETE BLOOD COUNT AND DIFFERENTIAL Lab Routine Malignant neoplasm of head of pancreas (HCC) Expected: 01/03/2024, Expires: 04/03/2024 [facility] Comment on above: Expected: 01/03/2024 , Expires: 04/03/2024 Start: 01-03-2024 End: 04-03-2024 Comprehensive metabolic 2000 panel - Serum or Plasma COMPREHENSIVE METABOLIC PANEL Lab Routine Malignant neoplasm of head of pancreas (HCC) Expected: 01/03/2024, Expires: 04/03/2024 [facility] Work Phone: Comment on above: Expected: 01/03/2024 , Expires: 04/03/2024 Start: 01-03-2024 End: 01-03-2024 ambulatory 01/03/2024 9:45 AM EDT Infusion Center Hematology/Oncology [address] [place] [address] [place] [address] Julia Hematology/Oncology Comment on above: Julia Start: 01-03-2024 End: 01-03-2024 Follow-up encounter Hematology/Oncology Comment on above: 3 week follow up and chemotx Julia // pump connect Start: 12-29-2023 End: 12-29-2023 Admission to same day surgery center 12/29/2023 10:00 AM EDT - 12/29/2023 11:30 AM EDT Surgery [facility] Radiology Procedure [id number] [facility] [place] [address] Jhonny Morgan MD [address] [place] [address] REMOVAL CATHETER PORT-A-CATH [facility] Radiology Procedure Comment on above: REMOVAL CATHETER POR T-A-CATH Start: 12-29-2023 End: 12-29-2023 Insj tunneled ctr vad w/subq port age 6 yr/> INSERTION PORT VENOUS ACCESS ADULT Central line complication, initial encounter 12/29/2023 10:00 AM EDT AV IR Start: 12-29-2023 End: 12-29-2023 Rmvl bennett cvc w/o subq port/button breaker REMOVAL CATHETER PORT-A-CATH Central line complication, initial encounter 12/29/2023 10:00 AM EDT AV IR Start: 12-29-2023 Subsequent hospital visit by physician 12/29/2023 10:00 AM EDT Hospital Encounter [facility] Radiology Procedure [id number] [facility] [place] [address] Jhonny Morgan MD [address] [place] [address] Central line complication, initial encounter [T82.9XXA] [facility] Radiology Procedure Comment on above: Central line complic ation, initial encounter [T82.9XXA] Start: 12-13-2023 End: 12-13-2023 ambulatory 12/13/2023 11:00 AM EDT Infusion Center Hematology/Oncology [address] [place] [address] [place] [address] pump disconnect Hematology/Oncology Comment on above: pump [...] pancreas (HCC) Expected: 11/21/2023 (Approximate), Expires: 02/20/2024 [facility] Comment on above: Expected: 11/21/2023 (Approximate), Expires: 02/20/2024 Start: 11-21-2023 End: 02-20-2024 CBC W Auto Differential panel - Blood COMPLETE BLOOD COUNT AND DIFFERENTIAL Lab Routine Malignant neoplasm of head of pancreas (HCC) Expected: 11/21/2023 (Approximate), Expires: 02/20/2024 [facility] Comment on above: Expected: 11/21/2023 (Approximate), Expires: 02/20/2024 Start: 11-21-2023 End: 02-20-2024 Comprehensive metabolic 2000 panel - Serum or Plasma COMPREHENSIVE METABOLIC PANEL Lab Routine Malignant neoplasm of head of pancreas (HCC) Expected: 11/21/2023 (Approximate), Expires: 02/20/2024 [facility] Comment on above: Expected: 11/21/2023 (Approximate), Expires: 02/20/2024 Start: 11-21-2023 End: 11-29-2024 CT Abdomen and Pelvis W contrast IV CT ABD/PEL W IVCON Radiology Routine Malignant neoplasm of head of pancreas (HCC) Expected: 11/21/2023 (Approximate), Expires: 11/29/2024 [facility] Comment on above: Expected: 11/21/2023 (Approximate), Expires: 11/29/2024 Start: 11-21-2023 End: 11-29-2024 CT Chest W contrast IV CT CHEST W IVCON Radiology Routine Malignant neoplasm of head of pancreas (HCC) Expected: 11/21/2023 (Approximate), Expires: 11/29/2024 [facility] Work Phone: Comment on above: Expected: 11/21/2023 (Approximate), Expires: 11/29/2024 Start: 11-20-2023 End: 11-20-2023 Follow-up encounter Hematology/Oncology Comment on above: 3 week follow up and chemotx Julia // pump connect Start: 11-19-2023 Influenza vaccination Influenza Vacc ine (#1) [facility] Comment on above: Postponed from 01/20 (Patient Refused) Start: 11-17-2023 End: 11-17-2023 Patient encounter procedure 11/17/2023 10:15 AM EDT Appointment Radiology Pet CT [address] [facility] [place] [address] CT CAP with contrast Radiology Pet CT [...] 11-04-2023 Influenza vaccination LUNG CANCER SC REENING [facility] Start: 11-04-2023 Screening for malign ant neoplasm of lung Lung Cancer Screening [facility] Start: 11-03-2023 End: 11-03-2023 ambulatory 11/03/2023 11:00 AM EDT Infusion Center Hematology/Oncology [address] [place] [address] pump disconnect Hematology/Oncology Comment on above: pump disconnect Start: 11-02-2023 End: 11-02-2023 ambulatory 11/02/2023 12:30 PM [facility] Infusion Center Hematology/Oncology [address] [place] [address] 12:30pm pump disconnect Hematology/Oncology Comment on above: 12:30pm pump disconn ect Start: 11-01-2023 End: 11-01-2023 Follow-up encounter Hematology/Oncology Comment on above: 3 week follow up and chemotx Julia // pump connecct Start: 10-27-2023 Hemoglobin A1c measurement HbA1C [facility] Start: 10-27-2023 Medicare Annual Well ness (AWV) Medicare Annual Wellness (AWV) [facility] Start: 10-27-2023 End: 10-27-2023 ambulatory 10/27/2023 10:30 AM [facility] Infusion Center Hematology/Oncology [address] [place] [address] pump disconnect Hematology/Oncology Comment on above: pump disconnect Start: 10-25-2023 End: 10-25-2023 Follow-up encounter Hematology/Oncology Comment on above: 3 week follow up and chemotx Julia // pump connecct Start: 10-13-2023 End: 10-13-2023 ambulatory 10/13/2023 11:30 AM [facility] Infusion Center Hematology/Oncology [address] [place] [address] pump disconnect Hematology/Oncology Comment on above: pump disconnect Start: 10-12-2023 End: 10-12-2023 ambulatory 10/12/2023 11:30 AM [facility] Infusion Center Hematology/Oncology [address] [place] [address] pump disconnect Hematology/Oncology Comment on above: pump disconnect Start: 10-11-2023 End: 01-10-2024 Cancer Ag 19-9 [Units/volume] in Serum or Plasma CA 19-9 Lab Routine Malignant neoplasm of head of pancreas (HCC) Expected: 10/11/2023, Expires: 01/10/2024 [facility] Comment on above: Expected: 10/11/2023 , Expires: 01/10/2024 Start: 10-11-2023 End: 01-10-2024 CBC W Auto Differential panel - Blood COMPLETE BLOOD COUNT AND DIFFERENTIAL Lab Routine Malignant neoplasm of head of pancreas (HCC) Expected: 10/11/2023, Expires: 01/10/2024 [facility] Comment on above: Expected: 10/11/2023 , Expires: 01/10/2024 Start: 10-11-2023 End: 01-10-2024 Comprehensive metabolic 2000 panel - Serum or Plasma COMPREHENSIVE METABOLIC PANEL Lab Routine Malignant neoplasm of head of pancreas (HCC) Expected: 10/11/2023, Expires: 01/10/2024 [facility] Work Phone: Comment on above: Expected: 10/11/2023 , Expires: 01/10/2024 Start: 10-11-2023 End: 10-11-2023 Follow-up encounter Hematology/Oncology Comment on above: 3 week follow up and chemotx Julia // pump connecct Start: 10-11-2023 End: 10-11-2023 ambulatory 10/11/2023 9:00 AM [facility] Infusion Center Hematology/Oncology [address] [place] [address] 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 Hematology/Oncology Comment on above: 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 Start: 10-10-2023 End: 10-10-2023 Follow-up encounter Hematology/Oncology Comment on above: 3 week follow up and chemotx Julia // pump connecct Start: 10-05-2023 End: 10-05-2023 ambulatory 10/05/2023 10:30 AM [facility] Infusion Center Hematology/Oncology [address] [place], [place] [address] [place] [address] pump disconnect Hematology/Oncology Comment on above: pump disconnect Start: 10-03-2023 End: 01-02-2024 CBC W Auto Differential panel - Blood COMPLETE BLOOD COUNT AND DIFFERENTIAL Lab Routine Leg swelling Malignant neoplasm of head of pancreas (HCC) Neuropathy Acute cough Expected: 10/03/2023, Expires: 01/02/2024 [facility] Comment on above: Expected: 10/03/2023 , Expires: 01/02/2024 Start: 10-03-2023 End: 01-02-2024 Comprehensive metabolic 2000 panel - Serum or Plasma COMPREHENSIVE METABOLIC PANEL Lab Routine Leg swelling Malignant neoplasm of head of pancreas (HCC) Neuropathy Acute cough Expected: 10/03/2023, Expires: 01/02/2024 [facility] Work Phone: Comment on above: Expected: 10/03/2023 , Expires: 01/02/2024 Start: 10-03-2023 End: 10-03-2023 Follow-up encounter Hematology/Oncology Comment on above: 3 week follow up and chemotx Julia // pump connecct Start: 09-25-2023 End: 12-25-2023 Cancer Ag 19-9 [Units/volume] in Serum or Plasma CA 19-9 Lab Routine Malignant neoplasm of head of pancreas (HCC) Neuropathy Expected: 09/25/2023, Expires: 12/25/2023 [facility] Comment on above: Expected: 09/25/2023 , Expires: 12/25/2023 Start: 09-25-2023 End: 12-25-2023 CBC W Auto Differential panel - Blood COMPLETE BLOOD COUNT AND DIFFERENTIAL Lab Routine Malignant neoplasm of head of pancreas (HCC) Neuropathy Expected: 09/25/2023, Expires: 12/25/2023 [facility] Comment on above: Expected: 09/25/2023 , Expires: 12/25/2023 Start: 09-25-2023 End: 12-25-2023 Comprehensive metabolic 2000 panel - Serum or Plasma COMPREHENSIVE METABOLIC PANEL Lab Routine Malignant neoplasm of head of pancreas (HCC) Neuropathy Expected: 09/25/2023, Expires: 12/25/2023 [facility] Work Phone: Comment on above: Expected: 09/25/2023 , Expires: 12/25/2023 Start: 09-15-2023 End: 09-15-2023 ambulatory 09/15/2023 11:00 AM T Infusion Center Hematology/Oncology [address] [place] [address] [place] [address] pump disconnect Hematology/Oncology Comment on above: pump disconnect Start: 09-13-2023 End: 12-13-2023 Cancer Ag 19-9 [Units/volume] in Serum or Plasma [facility] Work Phone: Comment on above: Expected: 09/13/2023 (Approximate), Expires: 12/13/2023 Start: 09-13-2023 End: 12-13-2023 CBC W Auto Differential panel - Blood CBC + DIFF Lab Routine Malignant neoplasm of head of pancreas (HCC) Expected: 09/13/2023 (Approximate), Expires: 12/13/2023 [facility] Work Phone: Comment on above: Expected: 09/13/2023 (Approximate), Expires: 12/13/2023 Start: 09-13-2023 End: 12-13-2023 Cobalamin (Vitamin B12) [Mass/volume] in Serum or Plasma VITAMIN B12 BLOOD Lab Routine Malignant neoplasm of head of pancreas (HCC) Expected: 09/13/2023 (Approximate), Expires: 12/13/2023 [facility] Work Phone: Comment on above: Expected: 09/13/2023 (Approximate), Expires: 12/13/2023 Start: 09-13-2023 End: 12-13-2023 Comprehensive metabolic 2000 panel - Serum or Plasma COMP METABOLIC PANEL Lab Routine Malignant neoplasm of head of pancreas (HCC) Expected: 09/13/2023 (Approximate), Expires: 12/13/2023 [facility] Work Phone: Comment on above: Expected: 09/13/2023 (Approximate), Expires: 12/13/2023 Start: 09-13-2023 End: 08-22-2024 Ferritin [Mass/volume] in Serum or Plasma FERRITIN BLD Lab Routine Malignant neoplasm of head of pancreas (HCC) Expected: 09/13/2023 (Approximate), Expires: 08/22/2024 [facility] Work Phone: Comment on above: Expected: 09/13/2023 (Approximate), Expires: 08/22/2024 Start: 09-13-2023 End: 08-22-2024 Iron and Iron binding capacity panel - Serum or Plasma IRON + TIBC Lab Routine Malignant neoplasm of head of pancreas (HCC) Expected: 09/13/2023 (Approximate), Expires: 08/22/2024 [facility] Work Phone: Comment on above: Expected: 09/13/2023 (Approximate), Expires: 08/22/2024 Start: 08-16-2023 End: 11-15-2023 Cancer Ag 19-9 [Units/volume] in Serum or Plasma CA 19-9 BLD Lab Routine Malignant neoplasm of head of pancreas (HCC) Expected: 08/16/2023 (Approximate), Expires: 11/15/2023 [facility] Work Phone: Comment on above: Expected: 08/16/2023 (Approximate), Expires: 11/15/2023 Start: 08-16-2023 End: 11-15-2023 CBC W Auto Differential panel - Blood CBC + DIFF Lab Routine Malignant neoplasm of head of pancreas (HCC) Expected: 08/16/2023 (Approximate), Expires: 11/15/2023 [facility] Work Phone: Comment on above: Expected: 08/16/2023 (Approximate), Expires: 11/15/2023 Start: 08-16-2023 End: 11-15-2023 Comprehensive metabolic 2000 panel - Serum or Plasma COMP METABOLIC PANEL Lab Routine Malignant neoplasm of head of pancreas (HCC) Expected: 08/16/2023 (Approximate), Expires: 11/15/2023 [facility] Work Phone: Comment on above: Expected: 08/16/2023 (Approximate), Expires: 11/15/2023 Start: 08-16-2023 End: 08-31-2024 CT Abdomen and Pelvis W contrast IV CT ABD/PEL W IVCON Radiology Routine Malignant neoplasm of head of pancreas (HCC) Expected: 08/16/2023 (Approximate), Expires: 08/31/2024 [facility] Work Phone: Comment on above: Expected: 08/16/2023 (Approximate), Expires: 08/31/2024 Start: 08-16-2023 End: 08-31-2024 CT Chest W contrast IV CT CHEST W IVCON Radiology Routine Malignant neoplasm of head of pancreas (HCC) Expected: 08/16/2023 (Approximate), Expires: 08/31/2024 [facility] Work Phone: Comment on above: Expected: 08/16/2023 (Approximate), Expires: 08/31/2024 Start: 07-28-2023 Influenza vaccination LUNG CANCER [facility] Start: 07-27-2023 Hemoglobin A1c measurement Diabetes: Hemoglobin A1C [facility] Start: 07-26-2023 End: 10-25-2023 Cancer Ag 19-9 [Units/volume] in Serum or Plasma CA 19-9 BLD Lab Routine Malignant neoplasm of head of pancreas (HCC) Type 2 diabetes mellitus without complication, with long-term current use of insulin (HCC) Neuropathy Severe protein-calorie malnutrition (HCC) Expected: 07/26/2023, Expires: 10/25/2023 [facility] Work Phone: Comment on above: Expected: 07/26/2023 , Expires: 10/25/2023 Start: 07-26-2023 End: 10-25-2023 CBC W Auto Differential panel - Blood CBC + DIFF Lab Routine Malignant neoplasm of head of pancreas (HCC) Type 2 diabetes mellitus without complication, with long-term current use of insulin (HCC) Neuropathy Severe protein-calorie malnutrition (HCC) Expected: 07/26/2023, Expires: 10/25/2023 [facility] Work Phone: Comment on above: Expected: 07/26/2023 , Expires: 10/25/2023 Start: 07-26-2023 End: 10-25-2023 Comprehensive metabolic 2000 panel - Serum or Plasma COMP METABOLIC PANEL Lab Routine Malignant neoplasm of head of pancreas (HCC) Type 2 diabetes mellitus without complication, with long-term current use of insulin (HCC) Neuropathy Severe protein-calorie malnutrition (HCC) Expected: 07/26/2023, Expires: 10/25/2023 [facility] Work Phone: Comment on above: Expected: 07/26/2023 , Expires: 10/25/2023 Start: 07-13-2023 End: 10-12-2023 CBC W Auto Differential panel - Blood CBC + DIFF Lab Routine Malignant neoplasm of head of pancreas (HCC) Expected: 07/13/2023, Expires: 10/12/2023 [facility] Work Phone: Comment on above: Expected: 07/13/2023 , Expires: 10/12/2023 Start: 07-13-2023 End: 10-12-2023 Comprehensive metabolic 2000 panel - Serum or Plasma COMP METABOLIC PANEL Lab Routine Malignant neoplasm of head of pancreas (HCC) Expected: 07/13/2023, Expires: 10/12/2023 [facility] Work Phone: Comment on above: Expected: 07/13/2023 , Expires: 10/12/2023 Start: 05-26-2023 End: 08-25-2023 Cancer Ag 19-9 [Units/volume] in Serum or Plasma CA 19-9 BLD Lab Routine Malignant neoplasm of head of pancreas (HCC) Expected: 05/26/2023 (Approximate), Expires: 08/25/2023 [facility] Work Phone: Comment on above: Expected: 05/26/2023 (Approximate), Expires: 08/25/2023 Start: 05-26-2023 End: 08-25-2023 CBC W Auto Differential panel - Blood CBC + DIFF Lab Routine Malignant neoplasm of head of pancreas (HCC) Expected: 05/26/2023 (Approximate), Expires: 08/25/2023 [facility] Work Phone: Comment on above: Expected: 05/26/2023 (Approximate), Expires: 08/25/2023 Start: 05-26-2023 End: 08-25-2023 Comprehensive metabolic 2000 panel - Serum or Plasma COMP METABOLIC PANEL Lab Routine Malignant neoplasm of head of pancreas (HCC) Expected: 05/26/2023 (Approximate), Expires: 08/25/2023 [facility] Work Phone: Comment on above: Expected: 05/26/2023 (Approximate), Expires: 08/25/2023 Start: 05-26-2023 End: 06-03-2024 Ct abdomen & pelvis w/contrast material CT ABD/PEL W IVCON Radiology Routine Malignant neoplasm of head of pancreas (HCC) Expected: 05/26/2023 (Approximate), Expires: 06/03/2024 [facility] Work Phone: Comment on above: Expected: 05/26/2023 (Approximate), Expires: 06/03/2024 Start: 05-26-2023 End: 06-03-2024 CT CHEST W IVCON CT CHEST W IVCON Radiology Routine Malignant neoplasm of head of pancreas (HCC) Expected: 05/26/2023 (Approximate), Expires: 06/03/2024 [facility] Work Phone: Comment on above: Expected: 05/26/2023 (Approximate), Expires: 06/03/2024 Start: 05-25-2023 Influenza vaccination LUNG CANCER SC REENING [facility] Start: 05-22-2023 Advance Directive Discussion Advance Directive Discussion [facility] Start: 05-22-2023 Behavioral Health Screening Behavioral Health Screening [facility] Start: 05-22-2023 Depression Assessment Depression Ass essment [facility] Start: 05-12-2023 End: 08-11-2023 CBC W Auto Differential panel - Blood CBC + DIFF Lab Routine Malignant neoplasm of head of pancreas (HCC) Expected: 05/12/2023, Expires: 08/11/2023 [facility] Work Phone: Comment on above: Expected: 05/12/2023 , Expires: 08/11/2023 Start: 04-26-2023 End: 07-26-2023 Cancer Ag 19-9 [Units/volume] in Serum or Plasma CA 19-9 BLD Lab Routine Type 2 diabetes mellitus without complication, with long-term current use of insulin (HCC) Severe protein-calorie malnutrition (HCC) Malignant neoplasm of head of pancreas (HCC) Anemia, unspecified type Expected: 04/26/2023 (Approximate), Expires: 07/26/2023 [facility] Work Phone: Comment on above: Expected: 04/26/2023 (Approximate), Expires: 07/26/2023 Start: 04-26-2023 End: 07-26-2023 CBC W Auto Differential panel - Blood CBC + DIFF Lab Routine Type 2 diabetes mellitus without complication, with long-term current use of insulin (HCC) Severe protein-calorie malnutrition (HCC) Malignant neoplasm of head of pancreas (HCC) Anemia, unspecified type Expected: 04/26/2023 (Approximate), Expires: 07/26/2023 [facility] Work Phone: Comment on above: Expected: 04/26/2023 (Approximate), Expires: 07/26/2023 Start: 04-26-2023 End: 07-26-2023 Comprehensive metabolic 2000 panel - Serum or Plasma COMP METABOLIC PANEL Lab Routine Type 2 diabetes mellitus without complication, with long-term current use of insulin (HCC) Severe protein-calorie malnutrition (HCC) Malignant neoplasm of head of pancreas (HCC) Anemia, unspecified type Expected: 04/26/2023 (Approximate), Expires: 07/26/2023 [facility] Work Phone: Comment on above: Expected: 04/26/2023 (Approximate), Expires: 07/26/2023 Start: 03-30-2023 End: 06-29-2023 Cancer Ag 19-9 [Units/volume] in Serum or Plasma CA 19-9 BLD Lab Routine 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) Expected: 03/30/2023 (Approximate), Expires: 06/29/2023 [facility] Work Phone: Comment on above: Expected: 03/30/2023 (Approximate), Expires: 06/29/2023 Start: 03-30-2023 End: 06-29-2023 CBC W Auto Differential panel - Blood [facility] Work Phone: Comment on above: Expected: 03/30/2023 (Approximate), Expires: 06/29/2023 Expected: 03/30/2023 , Expires: 06/29/2023 Start: 03-30-2023 End: 06-29-2023 Comprehensive metabolic 2000 panel - Serum or Plasma [facility] Work Phone: Comment on above: Expected: 03/30/2023 (Approximate), Expires: 06/29/2023 Expected: 03/30/2023 , Expires: 06/29/2023 Start: 03-07-2023 Influenza vaccination LUNG CANCER [facility] Start: 03-02-2023 End: 05-02-2023 Cancer Ag 19-9 [Units/volume] in Serum or Plasma CA 19-9 BLD Lab Routine 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) Type 2 diabetes mellitus without complication, with long-term current use of insulin (HCC) LINDSEY (dyspnea on exertion) Expected: 03/02/2023, Expires: 05/02/2023 [facility] Work Phone: Comment on above: Expected: 03/02/2023 , Expires: 05/02/2023 Start: 03-02-2023 End: 05-02-2023 CBC W Auto Differential panel - Blood CBC + DIFF Lab Routine 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) Type 2 diabetes mellitus without complication, with long-term current use of insulin (HCC) LINDSEY (dyspnea on exertion) Expected: 03/02/2023, Expires: 05/02/2023 [facility] Work Phone: Comment on above: Expected: 03/02/2023 , Expires: 05/02/2023 Start: 03-02-2023 End: 05-02-2023 Comprehensive metabolic 2000 panel - Serum or Plasma COMP METABOLIC PANEL Lab Routine 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) Type 2 diabetes mellitus without complication, with long-term current use of insulin (HCC) LINDSEY (dyspnea on exertion) Expected: 03/02/2023, Expires: 05/02/2023 [facility] Work Phone: Comment on above: Expected: 03/02/2023 , Expires: 05/02/2023 Start: 03-01-2023 End: 05-01-2023 Cancer Ag 19-9 [Units/volume] in Serum or Plasma [facility] Work Phone: Comment on above: Expected: 03/01/2023 (Approximate), Expires: 05/01/2023 Start: 03-01-2023 End: 05-01-2023 CBC W Auto Differential panel - Blood CBC + DIFF Lab Routine 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) Expected: 03/01/2023 (Approximate), Expires: 05/01/2023 [facility] Work Phone: Comment on above: Expected: 03/01/2023 (Approximate), Expires: 05/01/2023 Start: 03-01-2023 End: 05-01-2023 Comprehensive metabolic 2000 panel - Serum or Plasma [facility] Work Phone: Comment on above: Expected: 03/01/2023 (Approximate), Expires: 05/01/2023 Start: 02-08-2023 End: 04-10-2023 CBC W Auto Differential panel - Blood CBC + DIFF Lab Routine 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) Expected: 02/08/2023 (Approximate), Expires: 04/10/2023 [facility] Work Phone: Comment on above: Expected: 02/08/2023 (Approximate), Expires: 04/10/2023 Start: 02-08-2023 End: 04-10-2023 Comprehensive metabolic 2000 panel - Serum or Plasma COMP METABOLIC PANEL Lab Routine 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) Expected: 02/08/2023 (Approximate), Expires: 04/10/2023 [facility] Work Phone: Comment on above: Expected: 02/08/2023 (Approximate), Expires: 04/10/2023 Start: 02-04-2023 End: 04-06-2023 Cancer Ag 19-9 [Units/volume] in Serum or Plasma CA 19-9 BLD Lab Routine 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) Expected: 02/04/2023 (Approximate), Expires: 04/06/2023 [facility] Work Phone: Comment on above: Expected: 02/04/2023 (Approximate), Expires: 04/06/2023 Start: 02-04-2023 End: 04-06-2023 CBC W Auto Differential panel - Blood CBC + DIFF Lab Routine 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) Expected: 02/04/2023 (Approximate), Expires: 04/06/2023 [facility] Work Phone: Comment on above: Expected: 02/04/2023 (Approximate), Expires: 04/06/2023 Start: 02-04-2023 End: 04-06-2023 Comprehensive metabolic 2000 panel - Serum or Plasma COMP METABOLIC PANEL Lab Routine 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) Expected: 02/04/2023 (Approximate), Expires: 04/06/2023 [facility] Work Phone: Comment on above: Expected: 02/04/2023 (Approximate), Expires: 04/06/2023 Start: 01-20-2023 Influenza vaccination [facility] Start: 12-14-2022 End: 02-13-2023 Cancer Ag 19-9 [Units/volume] in Serum or Plasma [facility] Work Phone: Comment on above: Expected: 12/14/2022 (Approximate), Expires: 02/13/2023 Start: 12-14-2022 End: 02-13-2023 CBC W Auto Differential panel - Blood CBC + DIFF Lab Routine Malignant neoplasm of head of pancreas (HCC) Expected: 12/14/2022 (Approximate), Expires: 02/13/2023 [facility] Work Phone: Comment on above: Expected: 12/14/2022 (Approximate), Expires: 02/13/2023 Start: 12-14-2022 End: 02-13-2023 Comprehensive metabolic 2000 panel - Serum or Plasma COMP METABOLIC PANEL Lab Routine Malignant neoplasm of head of pancreas (HCC) Expected: 12/14/2022 (Approximate), Expires: 02/13/2023 [facility] Work Phone: Comment on above: Expected: 12/14/2022 (Approximate), Expires: 02/13/2023 Start: 12-07-2022 End: 02-06-2023 CBC W Auto Differential panel - Blood CBC + DIFF Lab Routine Malignant neoplasm of head of pancreas (HCC) Expected: 12/07/2022, Expires: 02/06/2023 [facility] Work Phone: Comment on above: Expected: 12/07/2022 , Expires: 02/06/2023 Start: 12-05-2022 End: 02-04-2023 Cancer Ag 19-9 [Units/volume] in Serum or Plasma CA 19-9 BLD Lab Routine Malignant neoplasm of head of pancreas (HCC) Anemia, unspecified type Type 2 diabetes mellitus without complication, with long-term current use of insulin (HCC) Expected: 12/05/2022, Expires: 02/04/2023 [facility] Work Phone: Comment on above: Expected: 12/05/2022 , Expires: 02/04/2023 Start: 12-05-2022 End: 02-04-2023 CBC W Auto Differential panel - Blood [facility] Work Phone: Comment on above: Expected: 12/05/2022 , Expires: 02/04/2023 Start: 12-05-2022 End: 02-04-2023 Comprehensive metabolic 2000 panel - Serum or Plasma COMP METABOLIC PANEL Lab Routine Malignant neoplasm of head of pancreas (HCC) Anemia, unspecified type Type 2 diabetes mellitus without complication, with long-term current use of insulin (HCC) Expected: 12/05/2022, Expires: 02/04/2023 [facility] Work Phone: Comment on above: Expected: 12/05/2022 , Expires: 02/04/2023 Start: 11-23-2022 End: 01-23-2023 CBC W Auto Differential panel - Blood CBC + DIFF Lab Routine Malignant neoplasm of head of pancreas (HCC) Expected: 11/23/2022, Expires: 01/23/2023 [facility] Work Phone: Comment on above: Expected: 11/23/2022 , Expires: 01/23/2023 Start: 11-23-2022 End: 01-23-2023 Comprehensive metabolic 2000 panel - Serum or Plasma COMP METABOLIC PANEL Lab Routine Malignant neoplasm of head of pancreas (HCC) Expected: 11/23/2022, Expires: 01/23/2023 [facility] Work Phone: Comment on above: Expected: 11/23/2022 , Expires: 01/23/2023 Start: 11-10-2022 End: 01-10-2023 Cancer Ag 19-9 [Units/volume] in Serum or Plasma [facility] Work Phone: Comment on above: Expected: 11/10/2022 (Approximate), Expires: 01/10/2023 Start: 11-10-2022 End: 01-10-2023 CBC W Auto Differential panel - Blood CBC + DIFF Lab Routine Malignant neoplasm of head of pancreas (HCC) Expected: 11/10/2022 (Approximate), Expires: 01/10/2023 [facility] Work Phone: Comment on above: Expected: 11/10/2022 (Approximate), Expires: 01/10/2023 Start: 11-10-2022 End: 01-10-2023 Comprehensive metabolic 2000 panel - Serum or Plasma COMP METABOLIC PANEL Lab Routine Malignant neoplasm of head of pancreas (HCC) Expected: 11/10/2022 (Approximate), Expires: 01/10/2023 [facility] Work Phone: Comment on above: Expected: 11/10/2022 (Approximate), Expires: 01/10/2023 Start: 11-10-2022 End: 10-29-2023 Ct abdomen & pelvis w/contrast material CT ABD/PEL W IVCON Radiology Routine Malignant neoplasm of head of pancreas (HCC) Expected: 11/10/2022 (Approximate), Expires: 10/29/2023 [facility] Work Phone: Comment on above: Expected: 11/10/2022 (Approximate), Expires: 10/29/2023 Start: 11-10-2022 End: 10-29-2023 CT CHEST W IVCON CT CHEST W IVCON Radiology Routine Malignant neoplasm of head of pancreas (HCC) Expected: 11/10/2022 (Approximate), Expires: 10/29/2023 [facility] Work Phone: Comment on above: Expected: 11/10/2022 (Approximate), Expires: 10/29/2023 Start: 09-13-2022 End: 11-13-2022 Cancer Ag 19-9 [Units/volume] in Serum or Plasma CA 19-9 BLD Lab Routine Malignant neoplasm of head of pancreas (HCC) Expected: 09/13/2022 (Approximate), Expires: 11/13/2022 [facility] Work Phone: Comment on above: Expected: 09/13/2022 (Approximate), Expires: 11/13/2022 Start: 09-13-2022 End: 11-13-2022 CBC W Auto Differential panel - Blood CBC + DIFF Lab Routine Malignant neoplasm of head of pancreas (HCC) Expected: 09/13/2022 (Approximate), Expires: 11/13/2022 [facility] Work Phone: Comment on above: Expected: 09/13/2022 (Approximate), Expires: 11/13/2022 Start: 09-13-2022 End: 11-13-2022 Comprehensive metabolic 2000 panel - Serum or Plasma COMP METABOLIC PANEL Lab Routine Malignant neoplasm of head of pancreas (HCC) Expected: 09/13/2022 (Approximate), Expires: 11/13/2022 [facility] Work Phone: Comment on above: Expected: 09/13/2022 (Approximate), Expires: 11/13/2022 Start: 08-03-2022 End: 10-03-2022 Cancer Ag 19-9 [Units/volume] in Serum or Plasma CA 19-9 BLD Lab Routine Malignant neoplasm of head of pancreas (HCC) Expected: 08/03/2022 (Approximate), Expires: 10/03/2022 [facility] Work Phone: Comment on above: Expected: 08/03/2022 (Approximate), Expires: 10/03/2022 Start: 08-03-2022 End: 10-03-2022 CBC W Auto Differential panel - Blood CBC + DIFF Lab Routine Malignant neoplasm of head of pancreas (HCC) Expected: 08/03/2022 (Approximate), Expires: 10/03/2022 [facility] Work Phone: Comment on above: Expected: 08/03/2022 (Approximate), Expires: 10/03/2022 Start: 08-03-2022 End: 10-03-2022 Comprehensive metabolic 2000 panel - Serum or Plasma COMP METABOLIC PANEL Lab Routine Malignant neoplasm of head of pancreas (HCC) Expected: 08/03/2022 (Approximate), Expires: 10/03/2022 [facility] Work Phone: Comment on above: Expected: 08/03/2022 (Approximate), Expires: 10/03/2022 Start: 08-03-2022 End: 07-29-2023 Ct abdomen & pelvis w/contrast material CT ABD/PEL W IVCON Radiology Routine Malignant neoplasm of head of pancreas (HCC) Expected: 08/03/2022, Expires: 07/29/2023 [facility] Work Phone: Comment on above: Expected: 08/03/2022 , Expires: 07/29/2023 Start: 08-03-2022 End: 07-29-2023 CT CHEST W IVCON CT CHEST W IVCON Radiology Routine Malignant neoplasm of head of pancreas (HCC) Expected: 08/03/2022, Expires: 07/29/2023 [facility] Work Phone: Comment on above: Expected: 08/03/2022 , Expires: 07/29/2023 Start: 06-01-2022 End: 08-01-2022 Cancer Ag 19-9 [Units/volume] in Serum or Plasma [facility] Work Phone: Comment on above: Expected: 06/01/2022 (Approximate), Expires: 08/01/2022 Start: 06-01-2022 End: 08-01-2022 CBC W Auto Differential panel - Blood CBC + DIFF Lab Routine Malignant neoplasm of head of pancreas (HCC) Expected: 06/01/2022 (Approximate), Expires: 08/01/2022 [facility] Work Phone: Comment on above: Expected: 06/01/2022 (Approximate), Expires: 08/01/2022 Start: 06-01-2022 End: 08-01-2022 Comprehensive metabolic 2000 panel - Serum or Plasma COMP METABOLIC PANEL Lab Routine Malignant neoplasm of head of pancreas (HCC) Expected: 06/01/2022 (Approximate), Expires: 08/01/2022 [facility] Work Phone: Comment on above: Expected: 06/01/2022 (Approximate), Expires: 08/01/2022 Start: 06-01-2022 End: 06-10-2023 Ct abdomen & pelvis w/contrast material CT ABD/PEL W IVCON Radiology Routine Malignant neoplasm of head of pancreas (HCC) Expected: 06/01/2022, Expires: 06/10/2023 [facility] Work Phone: Comment on above: Expected: 06/01/2022 , Expires: 06/10/2023 Start: 06-01-2022 End: 06-10-2023 CT CHEST W IVCON CT CHEST W IVCON Radiology Routine Malignant neoplasm of head of pancreas (HCC) Expected: 06/01/2022, Expires: 06/10/2023 [facility] Work Phone: Comment on above: Expected: 06/01/2022 , Expires: 06/10/2023 Start: 05-22-2022 ADVANCE DIRECTIVE DISCUSSION ADVANCE DIRECTIVE DISCUSSION [facility] Start: 05-22-2022 DEPRESSION ASSESSMENT DEPRESSION ASS ESSMENT [facility] Start: 05-13-2022 End: 07-13-2022 Cancer Ag 19-9 [Units/volume] in Serum or Plasma CA 19-9 BLD Lab Routine Malignant neoplasm of head of pancreas (HCC) Anemia, unspecified type Expected: 05/13/2022, Expires: 07/13/2022 [facility] Work Phone: Comment on above: Expected: 05/13/2022 , Expires: 07/13/2022 Start: 05-13-2022 End: 07-13-2022 CBC W Auto Differential panel - Blood CBC + DIFF Lab Routine Malignant neoplasm of head of pancreas (HCC) Anemia, unspecified type Expected: 05/13/2022, Expires: 07/13/2022 [facility] Work Phone: Comment on above: Expected: 05/13/2022 , Expires: 07/13/2022 Start: 05-13-2022 End: 07-13-2022 Comprehensive metabolic 2000 panel - Serum or Plasma COMP METABOLIC PANEL Lab Routine Malignant neoplasm of head of pancreas (HCC) Anemia, unspecified type Expected: 05/13/2022, Expires: 07/13/2022 [facility] Work Phone: Comment on above: Expected: 05/13/2022 , Expires: 07/13/2022 Start: 05-11-2022 End: 07-11-2022 CREATININE BLD CREATININE BLD Lab Routine Malignant neoplasm of head of pancreas (HCC) Expected: 05/11/2022, Expires: 07/11/2022 [facility] Work Phone: Comment on above: Expected: 05/11/2022 , Expires: 07/11/2022 Start: 04-06-2022 End: 06-06-2022 Cancer Ag 19-9 [Units/volume] in Serum or Plasma CA 19-9 BLD Lab Routine Malignant neoplasm of head of pancreas (HCC) Expected: 04/06/2022, Expires: 06/06/2022 [facility] Work Phone: Comment on above: Expected: 04/06/2022 , Expires: 06/06/2022 Start: 04-06-2022 End: 06-06-2022 CBC W Auto Differential panel - Blood [facility] Work Phone: Comment on above: Expected: 04/06/2022 , Expires: 06/06/2022 Start: 04-06-2022 End: 06-06-2022 Comprehensive metabolic 2000 panel - Serum or Plasma COMP METABOLIC PANEL Lab Routine Malignant neoplasm of head of pancreas (HCC) Expected: 04/06/2022, Expires: 06/06/2022 [facility] Work Phone: Comment on above: Expected: 04/06/2022 , Expires: 06/06/2022 Start: 03-30-2022 End: 05-30-2022 Cancer Ag 19-9 [Units/volume] in Serum or Plasma [facility] Work Phone: Comment on above: Expected: 03/30/2022 , Expires: 05/30/2022 Start: 03-30-2022 End: 05-30-2022 CBC W Auto Differential panel - Blood CBC + DIFF Lab Routine Malignant neoplasm of head of pancreas (HCC) Expected: 03/30/2022, Expires: 05/30/2022 [facility] Work Phone: Comment on above: Expected: 03/30/2022 , Expires: 05/30/2022 Start: 03-30-2022 End: 05-30-2022 Cobalamin (Vitamin B12) [Mass/volume] in Serum or Plasma [facility] Work Phone: Comment on above: Expected: 03/30/2022 , Expires: 05/30/2022 Start: 03-30-2022 End: 05-30-2022 Comprehensive metabolic 2000 panel - Serum or Plasma COMP METABOLIC PANEL Lab Routine Malignant neoplasm of head of pancreas (HCC) Expected: 03/30/2022, Expires: 05/30/2022 [facility] Work Phone: Comment on above: Expected: 03/30/2022 , Expires: 05/30/2022 Start: 03-23-2022 End: 05-23-2022 CBC W Auto Differential panel - Blood CBC + DIFF Lab Routine Malignant neoplasm of head of pancreas (HCC) Expected: 03/23/2022 (Approximate), Expires: 05/23/2022 [facility] Work Phone: Comment on above: Expected: 03/23/2022 (Approximate), Expires: 05/23/2022 Start: 03-23-2022 End: 05-23-2022 Comprehensive metabolic 2000 panel - Serum or Plasma COMP METABOLIC PANEL Lab Routine Malignant neoplasm of head of pancreas (HCC) Expected: 03/23/2022 (Approximate), Expires: 05/23/2022 [facility] Work Phone: Comment on above: Expected: 03/23/2022 (Approximate), Expires: 05/23/2022 Start: 03-16-2022 End: 05-16-2022 CBC W Auto Differential panel - Blood CBC + DIFF Lab Routine Malignant neoplasm of head of pancreas (HCC) Expected: 03/16/2022 (Approximate), Expires: 05/16/2022 [facility] Work Phone: Comment on above: Expected: 03/16/2022 (Approximate), Expires: 05/16/2022 Start: 03-16-2022 End: 05-16-2022 Comprehensive metabolic 2000 panel - Serum or Plasma COMP METABOLIC PANEL Lab Routine Malignant neoplasm of head of pancreas (HCC) Expected: 03/16/2022 (Approximate), Expires: 05/16/2022 [facility] Work Phone: Comment on above: Expected: 03/16/2022 (Approximate), Expires: 05/16/2022 Start: 03-16-2022 End: 05-16-2022 Ferritin [Mass/volume] in Serum or Plasma [facility] Work Phone: Comment on above: Expected: 03/16/2022 , Expires: 05/16/2022 Start: 03-16-2022 End: 05-16-2022 Folate [Mass/volume] in Serum or Plasma [facility] Work Phone: Comment on above: Expected: 03/16/2022 , Expires: 05/16/2022 Start: 03-16-2022 End: 05-16-2022 Iron and Iron binding capacity panel - Serum or Plasma [facility] Work Phone: Comment on above: Expected: 03/16/2022 , Expires: 05/16/2022 Start: 03-16-2022 End: 05-16-2022 MISC SEND OUT TST 1 [facility] Work Phone: Comment on above: Expected: 03/16/2022 , Expires: 05/16/2022 Start: 03-08-2022 End: 05-08-2022 Cancer Ag 19-9 [Units/volume] in Serum or Plasma CA 19-9 BLD Lab Routine Malignant neoplasm of head of pancreas (HCC) Expected: 03/08/2022 (Approximate), Expires: 05/08/2022 [facility] Work Phone: Comment on above: Expected: 03/08/2022 (Approximate), Expires: 05/08/2022 Start: 03-08-2022 End: 05-08-2022 CBC W Auto Differential panel - Blood CBC + DIFF Lab Routine Malignant neoplasm of head of pancreas (HCC) Expected: 03/08/2022 (Approximate), Expires: 05/08/2022 [facility] Work Phone: Comment on above: Expected: 03/08/2022 (Approximate), Expires: 05/08/2022 Start: 03-08-2022 End: 05-08-2022 Comprehensive metabolic 2000 panel - Serum or Plasma COMP METABOLIC PANEL Lab Routine Malignant neoplasm of head of pancreas (HCC) Expected: 03/08/2022 (Approximate), Expires: 05/08/2022 [facility] Work Phone: Comment on above: Expected: 03/08/2022 (Approximate), Expires: 05/08/2022 Start: 03-08-2022 End: 05-08-2022 MISC SEND OUT TST 1 MISC SEND OUT TST 1 Lab Routine Malignant neoplasm of head of pancreas (HCC) Expected: 03/08/2022 (Approximate), Expires: 05/08/2022 [facility] Work Phone: Comment on above: Expected: 03/08/2022 (Approximate), Expires: 05/08/2022 Start: 03-01-2022 End: 03-24-2023 CT CHEST W IVCON CT CHEST W IVCON Radiology Routine Malignant neoplasm of head of pancreas (HCC) Expected: 03/01/2022, Expires: 03/24/2023 [facility] Work Phone: Comment on above: Expected: 03/01/2022 , Expires: 03/24/2023 Start: 02-23-2022 End: 04-25-2022 PT panel - Platelet poor plasma by Coagulation assay PROTHROMBIN TIME/PT Lab Routine Malignant neoplasm of pancreas, unspecified location of malignancy (HCC) Expected: 02/23/2022, Expires: 04/25/2022 [facility] Work Phone: Comment on above: Expected: 02/23/2022 , Expires: 04/25/2022 Start: 01-20-2022 Influenza vaccination [facility] Start: 12-04-2021 Colonoscopy COLONOSCOPY [facility] Start: 12-04-2021 COLORECTAL CANCER SCREENING COLORECTAL CANCER SCREENING [facility] Start: 12-04-2021 Screening for malign ant neoplasm of colon [facility] Start: 05-22-2021 ADVANCE DIRECTIVE DISCUSSION ADVANCE DIRECTIVE DISCUSSION [facility] Start: 05-22-2021 DEPRESSION ASSESSMENT DEPRESSION ASS ESSMENT [facility] Start: 03-06-2021 Influenza vaccination LUNG CANCER SC REENING [facility] Start: 03-02-2021 Urine screening for protein Diabetes: Urine Protein Screening [facility] Start: 02-21-2021 COVID-19 VACCINE (2 - Booster for [place] series) COVID-19 VACCINE (2 - Booster for [place] series) [facility] Start: 01-24-2021 COVID-19 VACCINE (2 - [place] risk series) COVID-19 VACCINE (2 - [place] risk series) [facility] Start: 01-20-2021 Influenza vaccination INFLUENZA (#1) [facility] Start: 11-23-2020 Hepatitis B surface antibody level LDL Cholesterol [facility] Start: 03-23-2020 Annual Wellness Visi t (AWV) Annual Wellness Visit (AWV) [place], [place] Start: 03-18-2020 End: 03-18-2020 Office Visit 03/18/2020 Office Visit Oncology Dwayne Moy MD [address] [place] [address] [facility] Start: 01-21-2020 Influenza vaccination Flu vaccine (# 1) [place], [place] Start: 2016 Pneumococcal 65+ yea rs Vaccine (1 of 1 - PPSV23) Pneumococcal 65+ years Vaccine (1 of 1 - PPSV23) [place] Start: 2016 PNEUMOCOCCAL: 65+ (1 - PCV) PNEUMOCOCCAL: 65+ (1 - PCV) [facility] Start: 2016 PNEUMOVAX AGE 65 AND OVER WITH 5YR LOOKBACK (#1) PNEUMOVAX AGE 65 AND OVER WITH 5YR LOOKBACK (#1) [facility] Start: 2011 RSV Vaccine (1 - 1-d ose 60+ series) RSV Vaccine (1 - 1-dose 60+ series) [facility] Start: 2011 RSV Vaccine (1 - Ris k 60-74 years 1-dose series) RSV Vaccine (1 - Risk 60-74 years 1-dose series) [facility] Start: 2001 Screening for malign ant neoplasm of colon Colon cancer screen colonoscopy [place], [place] Start: 2001 Shingles Vaccine (1 of 2) Shingles Vaccine (1 of 2) [place] Start: 2001 SHINGRIX VACCINE (1 of 2) SHINGRIX VACCINE (1 of 2) [facility] Start: 1996 COLOGUARD (FIT-DNA) COLOGUARD (FIT-D NA) [facility] Start: [address] COLONOGRAPHY [facility] Start: 1996 FECAL OCCULT BLOOD FECAL OCCULT BLOO D [facility] Start: 1996 Screening for malign ant neoplasm of colon [facility] Start: 1996 SIGMOIDOSCOPY SIGMOIDOSCOPY [facility] Start: 1991 Diabetes screen Diabetes screen [place], [place] Start: 1991 Lipid panel Lipid screen [place], [place] Start: 1970 DTaP/Tdap/Td vaccine (1 - Tdap) DTaP/Tdap/Td vaccine (1 - Tdap) [place] Start: 1970 SHINGRIX VACCINE (1 of 2) SHINGRIX VACCINE (1 of 2) [facility] Start: 1970 Urine microalbumin profile DTAP,TDAP,TD (1 - Tdap) [facility] Start: 1969 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 Annual PCP Team Chronic Disease Visit [facility] Start: 1969 Anxiety Screening Anxiety Screening [facility] Start: 1969 Depression Screening Depression Scre ening [facility] Start: 1969 HEPATITIS C SCREENING HEPATITIS C [facility] Start: 1969 Hepatitis C screening Hepatitis C [facility] Start: 1963 Adult depression screening assessment DEPRESSION SCREENING [facility] Start: 1961 Diabetic foot examination Diabetic Foot Exam [facility] Start: 1961 Glaucoma screening [facility] Start: 1961 Hepatitis B screening Urine Albumin:Creatinine Ratio [facility] Start: 1957 Pneumococcal Vaccine : 65+ (1 - PCV) Pneumococcal Vaccine: 65+ (1 - PCV) [facility] Start: 1957 Pneumococcal Vaccine : 65+ (1 of 2 - PCV) Pneumococcal Vaccine: 65+ (1 of 2 - PCV) [facility] Start: 1957 PNEUMOCOCCAL: 65+ (1 - PCV) PNEUMOCOCCAL: 65+ (1 - PCV) [facility] Start: 1951 Abdominal aortic aneurysm screening [facility] Start: 1951 ABDOMINAL AORTIC ANEURYSM SCREENING ABDOMINAL AORTIC ANEURYSM SCREENING [facility] Start: 1951 Hepatitis C screening Hepatitis C [place], [place] Start: 1951 Screening for malign ant neoplasm of colon [facility] BLOOD CULTURE 1 BLOOD CULTURE 1 Lab Routine 03/24/2024 10:05 PM [facility] BLOOD CULTURE 2 BLOOD CULTURE 2 Lab Routine 03/24/2024 10:06 PM [facility] Cancer Ag 19-9 [Units/volume] in Serum or Plasma CA 19-9 BLD Lab Routine Malignant neoplasm of head of pancreas (HCC) 04/20/2022 9:46 AM [facility] Work Phone: Cancer Ag 19-9 [Units/volume] in Serum or Plasma CA 19-9 BLD Lab Routine Malignant neoplasm of head of pancreas (HCC) Anemia, unspecified type 05/11/2022 8:59 AM [facility] Work Phone: Cancer Ag 19-9 [Units/volume] in Serum or Plasma CA 19-9 BLD Lab Routine Malignant neoplasm of head of pancreas (HCC) 06/29/2022 10:17 AM [facility] Work Phone: Cancer Ag 19-9 [Units/volume] in Serum or Plasma CA 19-9 BLD Lab Routine Malignant neoplasm of head of pancreas (HCC) 08/02/2022 10:21 AM [facility] Work Phone: Cancer Ag 19-9 [Units/volume] in Serum or Plasma CA 19-9 BLD Lab Routine Malignant neoplasm of head of pancreas (HCC) 09/29/2022 10:18 AM [facility] Work Phone: Cancer Ag 19-9 [Units/volume] in Serum or Plasma CA 19-9 BLD Lab Routine 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) 02/01/2023 11:18 AM [facility] Work Phone: Cancer Ag 19-9 [Units/volume] in Serum or Plasma CA 19-9 BLD Lab Routine 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) Type 2 diabetes mellitus without complication, with long-term current use of insulin (HCC) LINDSEY (dyspnea on exertion) 04/05/2023 1:44 PM [facility] Work Phone: Cancer Ag 19-9 [Units/volume] in Serum or Plasma CA 19-9 BLD Lab Routine Type 2 diabetes mellitus without complication, with long-term current use of insulin (HCC) Severe protein-calorie malnutrition (HCC) Malignant neoplasm of head of pancreas (HCC) Anemia, unspecified type 05/05/2023 1:13 PM [facility] Work Phone: Cancer Ag 19-9 [Units/volume] in Serum or Plasma CA 19-9 BLD Lab Routine Malignant neoplasm of head of pancreas (HCC) 07/05/2023 10:33 AM [facility] Work Phone: Cancer Ag 19-9 [Units/volume] in Serum or Plasma CA 19-9 BLD Lab Routine Malignant neoplasm of head of pancreas (HCC) Type 2 diabetes mellitus without complication, with long-term current use of insulin (HCC) Neuropathy Severe protein-calorie malnutrition (HCC) 08/02/2023 10:23 AM [facility] Work Phone: Cancer Ag 19-9 [Units/volume] in Serum or Plasma CA 19-9 BLD Lab Routine Malignant neoplasm of head of pancreas (HCC) 08/23/2023 10:51 AM [facility] Work Phone: Cancer Ag 19-9 [Units/volume] in Serum or Plasma CA 19-9 Lab Routine Malignant neoplasm of head of pancreas (HCC) Neuropathy 10/03/2023 11:18 AM [facility] Work Phone: Cancer Ag 19-9 [Units/volume] in Serum or Plasma CA 19-9 Lab Routine Malignant neoplasm of head of pancreas (HCC) 10/31/2023 10:33 AM [facility] Work Phone: Cancer Ag 19-9 [Units/volume] in Serum or Plasma CA 19-9 Lab Routine Malignant neoplasm of head of pancreas (HCC) 11/20/2023 8:09 AM [facility] Work Phone: Cancer Ag 19-9 [Units/volume] in Serum or Plasma CA 19-9 Lab Routine Malignant neoplasm of head of pancreas (HCC) 02/12/2024 8:46 AM [facility] Work Phone: Cancer Ag 19-9 [Units/volume] in Serum or Plasma CA 19-9 Lab Routine Malignant neoplasm of head of pancreas (HCC) 04/02/2024 9:50 AM [facility] Work Phone: Clostridioides diffi cile toxin genes [Presence] in Stool by MIRTHA with probe detection C. DIFFICILE PCR Lab Routine Malignant neoplasm of head of pancreas (HCC) Diarrhea, unspecified type Ordered: 03/07/2022 [facility] Work Phone: Comment on above: Ordered: 03/07/2022 End: 05-04-2025 CT Abdomen and Pelvis W contrast IV CT ABD/PEL W IVCON Radiology Routine Malignant neoplasm of head of pancreas (HCC) 1 Occurrences starting 04/04/2024 until 05/04/2025 [facility] Work Phone: Comment on above: 1 Occurrences starti ng 04/04/2024 until 05/04/2025 End: 05-04-2025 CT Chest W contrast IV CT CHEST W IVCON Radiology Routine Malignant neoplasm of head of pancreas (HCC) 1 Occurrences starting 04/04/2024 until 05/04/2025 [facility] Comment on above: 1 Occurrences starti ng 04/04/2024 until 05/04/2025 End: 01-20-2024 CT CHEST W IVCON PE CT CHEST W IVCON PE Radiology STAT Chest pain, unspecified type LINDSEY (dyspnea on exertion) 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) Anemia, unspecified type Type 2 diabetes mellitus without complication, with long-term current use of insulin (HCC) 1 Occurrences starting 12/21/2022 until 01/20/2024 [facility] Work Phone: Comment on above: 1 Occurrences starti ng 12/21/2022 until 01/20/2024 IR PORTOCATH PLACEMENT IR PORTOC ATH PLACEMENT Radiology Routine Malignant neoplasm of head of pancreas (HCC) Ordered: 02/22/2022 [facility] Work Phone: Comment on above: Ordered: 02/22/2022 Patient Education Head injury in adults [facility] Work Phone: Patient referral [facility] Work Phone: REFERRAL FOR ADDITIO NAL BIOMARKER AND MOLECULAR TESTING REFERRAL FOR ADDITIONAL BIOMARKER AND MOLECULAR TESTING Lab Routine Malignant neoplasm of head of pancreas (HCC) 02/27/2022 10:40 PM EDT [facility] Work Phone: RFA Portal vein View s W contrast IV IR PORTAL VENOGRAM Radiology STAT Central line complication, initial encounter Ordered: 11/29/2023 [facility] Work Phone: Comment on above: Ordered: 11/29/2023 UA DIP, URINE (POC) UA DIP, URIN E (POC) Lab Routine Malignant neoplasm of head of pancreas (HCC) Frequency of urination Ordered: 10/11/2023 [facility] Comment on above: Ordered: 10/11/2023 End: 10-02-2024 US Lower extremity veins - bilateral US LEG VEIN DVT [facility] Vascular Lab STAT Leg swelling 1 Occurrences starting 10/03/2023 until 10/02/2024 [facility] Comment on above: 1 Occurrences starti ng 10/03/2023 until 10/02/2024 End: 08-02-2025 XR Chest Single view XR CHEST 1V FRONTAL PORT Radiology Routine Malignant neoplasm of head of pancreas (HCC) Central line complication, initial encounter 1 Occurrences starting 11/22/2023 until 12/21/2024 [facility] Work Phone: Comment on above: 1 Occurrences starti ng 11/22/2023 until 12/21/2024 [facility] Immunizations Immunization Date Immunization Notes Care Provider Fa cility 12-15-2022 tetanus toxoid, redu pascual diphtheria toxoid, and acellular pertussis vaccine, adsorbed II Giovanni Salinas Work Phone: [facility] 12-27-2020 COVID-19 vaccine ([place]) Eyad Manriquez MD Work Phone: [facility] Payers Date Payer Category Payer Self-pay [id number] 2019 Private Health Insurance [employer]ET[employer] A ETNA MEDICARE SUPPLEMENT [id number] 2019-Present [phone] [address] [address] [place] [address] Indemnity [id number] 2019 Private Health Insurance [id number] 2016 Medicare MEDICARE MEDICAR E A AND B [id number] 2016-Present [phone] [place] [address] Medicare [id number] .[id number] 2016 Medicare [id number] .[id number] 1959 Medicare [id number] .[id number] 1959 Private Health Insurance CLI [id number] .[id number] 1951 Unknown [id number] 2.16.840.1.056576.3.579 .2.173 1951 Unknown [id number] 2.16.840.1.039678.3.579 .2.173 1951 Unknown [id number] 2.16.840.1.610605.3.579 .2.593 1951 Unknown [id number] 2.16.840.1.443741.3.579 .2.593 1951 Unknown [id number] 2.16.840.1.217108.3.579 .2.593 1951 Unknown [id number] 2.16.840.1.265958.3.579 .2.593 1951 Unknown [id number] 2.16.840.1.824517.3.579 .2.593 1951 Unknown [id number] 2.16.840.1.643017.3.579 .2.593 1951 Unknown [id number] 2.16.840.1.625275.3.579 .2.593 1951 Unknown [id number] 2.16.840.1.294592.3.579 .2.593 1951 Unknown [id number] 2.16.840.1.775581.3.579 .2.593 1951 Unknown [id number] 2.16.840.1.515623.3.579 .2.593 1951 Unknown [id number] 2.16.840.1.389624.3.579 .2.593 1951 Unknown [id number] 2.16.840.1.681333.3.579 .2.593 1951 Unknown [id number] 2.16.840.1.300225.3.579 .2.593 1951 Unknown [id number] 2.16.840.1.025530.3.579 .2.593 1951 Unknown [id number] 2.16.840.1.619478.3.579 .2.1259 1951 Unknown [id number] 2.16.840.1.744005.3.579 .2.1259 1951 Unknown [id number] 2.16.840.1.664198.3.579 .2.1259 Unknown [id number] 2.16.840.1.468292.3.579 .2.531 Social History Date Type Detail Facility Start: 03-09-2020 Tobacco smoking stat us VTIS Unknown if ever smoked [place], [place] Start: 1950 Sex Assigned At Not on file [place] Start: 03-18-2020 End: 10-26-2022 Tobacco smoking status NHIS Former smoker [facility] Start: 03-18-1977 End: 11-20-2019 History of tobacco use Current smoker [place] Start: 03-18-1977 End: 11-20-2019 History of tobacco use Cigarette Smoker [place] Start: 03-18-2020 End: 04-01-2024 Alcohol intake Ex-drinker (finding) [facility]- MERV[place], K Y Start: 05-08-2020 End: 11-02-2023 Cigarettes smoked current (pack per day) - Reported 1 [facility] Start: 05-08-2020 End: 10-26-2022 Tobacco use and exposure Smokeless tobacco non-user [facility] Start: 03-24-2020 History SDOH Financial 5 [facility] Start: 03-24-2020 History SDOH Food Worry 1 [facility] Start: 03-24-2020 History SDOH Transpo rt Med 2 [facility] Start: 1950 Sex Assigned At Male C [facility] Start: 02-05-2022 End: 04-20-2022 Exposure to SARS-CoV-2 (event) Not sure [facility] History of tobacco use Passive smoker [facility] Start: 11-10-2022 End: 11-02-2023 Tobacco use panel [facility] How hard is it for y ou to pay for the very basics like food, housing, medical care, and heating Not hard at all [facility] (I/We) worried frederic er (my/our) food would run out before (I/we) got money to buy more. Never true [facility] Start: 01-13-2021 Gender identity Identifies as male gender (finding) [facility] Within the last year , [...] Equipment Origin al Text Equipment Identifier Dates [id number] Start: 10-26-2022 End: 06-08-2023 Comment on above: use to test BLOOD MCCARTHY GAR TWICE DAILY INJECT ONCE DAILY Tray Powerline Surecuff 5fr Polyurethane Catheter 1 Lumen Microintroducer - [id number] Start: 03-30-2020 Tray Powerline Surecuff 5fr Polyurethane Catheter 1 Lumen Microintroducer - [id number] Start: 12-15-2020 Mesh Surgipro Me dium Clear Polypropylene 2cm Surgical Nonabsorbable Plug - [id number] Start: 01-06-2021 Stent [place] Viabi l 8mm Metal 80mm 200cm Endoprosthesis No Hole Full Cover - [id number] Start: 2021 [id number] Start: 03-02-2022 Comment on above: Description: Port in serted at CC AV IR; Saline only flushes 1 each by Other route in the morning and 1 each before bedtime. [id number] Start: 12-02-2022 Use as instructed [id number] Start: 11-17-2022 End: 11-17-2023 use to test BLOO D SUGAR TWICE DAILY [id number] Start: 10-26-2022 End: 06-08-2023 INJECT ONCE DAILY [id number] Start: 10-26-2022 End: 06-08-2023 use to test BLOO D SUGAR TWICE DAILY [id number] Start: 10-26-2022 End: 06-08-2023 Power Port 8f Si ngle Lumen Venous [id number] Start: 12-29-2023 USE DIRECTED to test BLOOD SUGAR IN THE MORNING and BEFORE bedtime [id number] Start: 02-19-2024 Clinical Notes 03-09-2020 to 04-05-2024 Telephone Encounter - Pavithra Woods HUC - 04/05/2024 10:13 AM ESTTelephone Encounter - Pavithra Woods HUC - 04/05/2024 10:13 AM Yordy Landers APRN.CNP - 04/02/2024 9:30 AM EST Note Date & Type Note Facility 04-05-2024 Telephone encounter Note I spoke with the Patient's , and have the Patient scheduled for his CT Scan on Mon04/19/24, 1115 am arrival time, 12 pm scan time. DEVYN Pelayo [facility] 04-05-2024 Miscellaneous Notes I spoke with the Patient's , and have the Patient scheduled for his CT Scan on Mon04/19/24, 1115 am arrival time, 12 pm scan time. DEVYN Pelayo Pt's spouse notified and agrees to CT. BRM/Yordy: CT orders pended. Clerical: Pt's spouse requests that you call her tomorrow afternoon to schedule the CT. Has only specific days that are available. Thanks, Allie Cortez RN ----- Message from Vivek Smith MD sent at 04/04/2024 12:52 PM EST ----- Please inform the patient that his tumor marker has increased slightly. If in agreement please schedule CT chest/abdomen/pelvis to be done before his return visit. Raul Proctor documented in this encounter [facility] 04-04-2024 Telephone encounter Note Pt's spouse notified and agrees to CT. BRM/Yordy: CT orders pended. Clerical: Pt's spouse requests that you call her tomorrow afternoon to schedule the CT. Has only specific days that are available. Thanks, Allie Cortez RN [facility] 04-04-2024 Telephone encounter Note ----- Message from Vivek Smith MD sent at 04/04/2024 12:52 PM EST ----- Please inform the patient that his tumor marker has increased slightly. If in agreement please schedule CT chest/abdomen/pelvis to be done before his return visit. Raul Proctor [facility] 04-02-2024 History of Present illness Narrative PATIENT NAME: Trinity Perry DATE: 04/02/2024 PRIMARY CARE PHYSICIAN: Giovanni Salinas II, MD OTHER PHYSICIANS: Dr. Fara Monaco Portions of this encounter note have been copied from the note from 03/05/2024 and has been updated where appropriate, and reflect my current medical decision making from today. CC: This is a 73 year old male with metastatic pancreatic cancer, seen for scheduled follow-up and treatment. (Prior patient of Dr. Bess) INTERIM HISTORY: Trinity Perry returns for follow up and treatment. He remains on chemotherapy with Julia regimen every 3 weeks and is tolerating it well. Since his last visit he was admitted to [facility]. He was admitted 03/25/2024 through 03/26/2024 with left lower lobe pneumonia. He presented to the emergency room with generalized weakness, anorexia, low p.o. intake and high-grade fever. He was treated with IV fluids and IV Zosyn for community-acquired pneumonia. He was discharged home on Levaquin. Prior to going to the ER he had lost his balance a couple of times. Once, he slid down the recliner but was able to pull himself up. The second time he was in the basement on the floor after his legs gave out. He has an ache in his left side which he believes is from pulling himself up. He currently denies any fevers. He has an occasional cough. He denies any shortness of breath. He denies bleeding and abnormal bruising. He denies nausea, vomiting and diarrhea. He saw his PCP, Dr. Clemens, yesterday. He continues to complain of fatigue. His weakness has improved. Despite his recent bout of pneumonia he wishes to proceed with treatment today as planned. MEDICATIONS: FREESTYLE FLACO 3 SENSOR marsha^USE DIRECTED change EVERY 14 days^Disp: ^Rfl: (Patient not taking: Reported on 03/05/2024) FREESTYLE FLACO 3 READER misc^USE DIRECTED to check BLOOD SUGAR^Disp: ^Rfl: (Patient not taking: Reported on 03/05/2024) midodrine (PROAMATINE) 2.5 mg tablet^Take 2.5 mg [...] polyneuropathy, without long-term current use of insulin ([facility]) 06/07/2023 Gastric outlet obstruction Obstructive sleep apnea PAST SURGICAL HISTORY: PAST SURGICAL HISTORY Procedure Laterality Date INGUINAL HERNIA REPAIR HX Right 01/06/2021 PAST SURGICAL HISTORY OF 12/04/2019 Whipple Procedure 12/04/2019 PAST SURGICAL HISTORY OF 2019 drainage of abscess, placement of drainage caths PICC LINE INSERT/CONSULT 03/11/2020 PICC LINE INSERT/CONSULT 02/11/2021 REVIEW OF SYSTEMS: General: No weight loss, malaise or fevers. Positive fatigue and weakness. HEENT: Negative for frequent or significant headaches. No changes in hearing or vision, no nose bleeds or other nasal problems Respiratory: Negative for wheezing or shortness of breath. Occasional cough. Cardiovascular: Negative for chest pain, leg swelling or palpitations. GI: Negative for abdominal discomfort, blood in stools or black stools or change in bowel habits : No history of dysuria, frequency or incontinence. Musculoskeletal: Negative for: joint pain or swelling, back pain and muscle pain. Skin: Negative for lesions, rash and itching. Hematology/Lymphology: Negative for prolonged bleeding, bruising easily or swollen nodes. Neuro: No history of headaches, syncope, paralysis, seizures or tremors. PHYSICAL EXAM: Vitals: BP 122/74 Pulse 75 Temp 36.6 C (97.8 F) (Temporal) Resp 16 Ht 169.7 cm (5' 6.81 ) Wt 75.3 kg (166 lb 0.1 oz) SpO2 99% BMI 26.15 kg/m ECOG 1 General: Alert and oriented, no distress, pleasant and cooperative. Heart: Regular, normal S1 and S2, no murmurs, rubs, or gallops. Lungs: Clear to auscultation bilaterally. No crackles or wheezing. Abdomen: Benign Extremities: Feet/ankles without edema, posterior tibial pulses full and symmetrical. PATHOLOGY: 12/04/2019 Whipple's procedure FINAL DIAGNOSIS 1. [...] Microsatellite stable, tumor mutational burden 2 KRAS [id number], RON [id number] positive LABORATORY DATA: Hemoglobin (g/dL) Date Value 04/02/2024 11.0 02/11/2021 9.1 Hematocrit (%) Date Value 04/02/2024 34.1 02/11/2021 28.1 WBC (k/uL) Date Value 04/02/2024 8.16 02/11/2021 8.84 Platelet Count (k/uL) Date Value 04/02/2024 302 02/11/2021 264 RADIOLOGY/OTHER STUDIES: 03/24/2024 Chest xray Impression: Airspace opacity in the LLL. Please correlate for pneumonia versus atelectasis. Short-term follow-up to ensure resolution. 11/17/2023 CT chest IMPRESSION: 1. No interval [...] 05/11/2022 (patient elected to stop chemo). Resumed [place] and Abraxane 11/23/2022 - 12/14/2022. Stopped due to poor tolerance. Restarted [place] and Abraxane dose reduced, 2 week on [...] time he is clinically stable. The patient wishes to receive treatment today. Return in 3 weeks for follow-up. We will monitor clinically and restage if suspicious symptoms develop or his tumor marker increases significantly. 2. Diabetes mellitus Continue management per PCP 3. History of DVT Stable off anticoagulants. 4. Neuropathy Stable on current medications. 5. Hypotension The patient was admitted to [facility] 10/16/2023 with dehydration, hypoglycemia, and hypotension. Blood pressure currently stable on midodrine. Continue management per PCP. 6. Central line complication - ICD9: 996.74, ICD10: T82.9XXA Since October 2023 the patient had intermittent redness around the port tube under the skin over his right chest wall. Portogram 12/01/2023 at [facility] was negative. He was given oral antibiotics for possible infection and the symptoms resolved, but continued to recur with each infusion. The right chest infusaport was removed 12/29/2023 and was found to have a small tear noted in the catheter at/near the IJV entry. New Gl[place]-k-Qlad placed 12/29/2023. Yordy Moncada APRN.ROBERT I spent a total of 30 minutes on the date of the service which included preparing to see the patient, [id number] patient care, completing clinical documentation, obtaining and/or reviewing separately obtained history, performing a medically appropriate examination, counseling and educating the patient/family/caregiver, ordering medications, tests, or procedures, independently interpreting results (not separately reported), and communicating results to the patient/family/caregiver. documented in this encounter [facility] 04-02-2024 Note [facility] 04-01-2024 History of Present illness Narrative Images from the original note were not included. HPI Follow-up Additional comments: [facility] stay admitted 03/25/24 dx: pneumonia discharged home 03/26/24 with rx for levaquin Last edited by Erin Hylton LPN on 04/01/2024 2:15 PM. Subjective Patient ID: Trinity Perry is a 73 y.o. male who presents for Follow-up ([facility] stay admitted 03/25/24 dx: pneumonia discharged home 03/26/24 with rx for levaquin). Flowsheet Row Patient Outreach from 03/29/2024 in [facility] with Katie MondayJAUN Hospital Information ED, Hospital or [facility] Facility Discharge? Hospital Patient has been contacted within two business days of discharge Yes Diagnosis pneumonia, hyponatremia, weakness Discharge Date 03/26/24 Discharged To: Home Setting Discharge Hospital [facility] Engagement Call Start Time 1133 Admission Date 03/25/24 Medications Discharge medications reviewed and reconciled from hospital? Yes Is the patient having any side effects they believe may be caused by any medication additions or changes? No Does the patient have all medications ordered at discharge? Yes Is the patient taking all medications as directed (includes completed medication regime)? Yes Appointments Does the patient have a primary care provider? Yes Has the patient kept scheduled appointments due by today? Yes Self Management Patient Teaching Does the patient have access to their discharge instructions? Yes What is the patient's perception of their health status since discharge? Improving Is the patient/caregiver able to teach back the hierarchy of who to call/visit for symptoms/problems? PCP, Specialist, Home Health nurse, Urgent Care, ED, 911 Yes Wrap Up Is the patient/caregiver familiar with Advance Care Planning? No Would the patient like more information on Advance Care Planning? No Call End Time 1143 Pt has 1 day of abx left Pt states he has had ongoing issues with urinating frequently and nocturia Mild cough since haop discharge Denies fever,wheezing,dyspnea Current Outpatient Medications on File Prior to Visit Medication Sig Dispense Refill levoFLOXacin (Levaquin) 500 MG tablet Take 500 mg by mouth Daily Continuous Glucose Mold Shifter (FreeStyle Flaco 3 [place]) device 1 Device yearly 1 each 0 Continuous Glucose Sensor (FreeStyle Flaco 3 Plus Sensor) misc 1 Units See administration instructions 1 sensor every 15 days. 6 each 3 Drug [place] Unilet Lancets 30G misc 1 each by Other route in the morning and 1 each before bedtime. 60 each 2 finasteride (Proscar) 5 MG tablet TAKE 1 TABLET BY MOUTH IN THE MORNING 90 tablet 3 pantoprazole (ProtoNix) 20 MG EC tablet TAKE 1 TABLET BY MOUTH ONCE DAILY 90 tablet 3 tamsulosin (Flomax) 0.4 MG 24 hr capsule Take 1 capsule (0.4 mg) by mouth Daily 100 capsule 0 Toujeo SoloStar 300 UNIT/ML injection INJECT 26 UNITS SUBCUTANEOUSLY AT BEDTIME DAILY True Metrix Blood Glucose Test test strip USE DIRECTED to test BLOOD SUGAR IN THE MORNING and BEFORE bedtime 50 each 2 [DISCONTINUED] Continuous Blood Gluc Mold Shifter (OpenLabelcom G7 Mold Shifter) device 1 Device yearly. 1 each 0 [DISCONTINUED] midodrine (Proamatine) 2.5 MG tablet Take 1 tablet (2.5 mg) by mouth in the morning and 1 tablet (2.5 mg) in the evening and 1 tablet (2.5 mg) before bedtime. 90 tablet 11 [DISCONTINUED] NovoLOG FLEXPEN 100 UNIT/ML pen INJECT 6-8-10 UNITS according to meal size plus sliding scale DIRECTED (expect up to 30 UNITS DAILY) No current facility-administered medications on file prior to visit. I have reviewed and reconciled the history and medication list with the patient today. No Known Allergies Social History Tobacco Use Smoking status: Former Current packs/day: 0.00 Average packs/day: 1 pack/day for 40.0 years (40.0 ttl pk-yrs) Types: Cigarettes Start date: 10/21/1979 Quit date: 10/21/2019 Years since quittin.4 Smokeless tobacco: Never Substance Use Topics Alcohol use: Not Currently No family history on file. Past Medical History: Diagnosis Date Duodenal ulcer 2019 History of recent hospitalization 03/25/2024 LLL Pneumonia, Hyponatremia, Weakness Hypertension (CMS/HCC) Pancreatic cancer (CMS/HCC) Past Surgical History: Procedure Laterality Date CT GUIDED PERCUTANEOUS PERITONEAL OR RETROPERITONEAL FLUID COLLECTION DRAINAGE 03/10/2020 CT GUIDED PERCUTANEOUS PERITONEAL OR RETROPERITONEAL FLUID COLLECTION DRAINAGE 03/10/2020 EGD 10/2019 IR CVC PICC 03/11/2020 IR CVC PICC IR CVC PICC 02/11/2021 IR CVC PICC Visit Vitals Ht 5' 8 BMI 23.11 kg/m Smoking Status Former BSA 1.82 m Review of Systems Objective Physical Exam Constitutional: General: He is not in acute distress. Appearance: He is underweight. He is not ill-appearing, toxic-appearing or diaphoretic. HENT: Head: Normocephalic. Cardiovascular: Rate and Rhythm: Normal rate and regular rhythm. Heart sounds: Normal heart sounds. No murmur heard. Pulmonary: Effort: No respiratory distress. Breath sounds: No stridor. No rhonchi. Musculoskeletal: General: No swelling. Right lower leg: No edema. Left lower leg: No edema. Neurological: Mental Status: He is alert. Psychiatric: Mood and Affect: Mood normal. Thought Content: Thought content normal. Judgment: Judgment normal. Assessment/Plan Diagnoses and all orders for this visit: Pneumonia of left lower lobe due to infectious organism - The patient was seen today in follow up of recent hospital stay. All available hospital records were reviewed and discussed with the patient. Hospital discharge meds were reviewed. Any changes are noted above. Pancreatic adenocarcinoma (CMS/HCC) - Seeing Oncology, Chemo q 3 weeks. He will see if they should pause a few weeks. Immunosuppressed status (CMS/HCC) No follow-ups on file. documented in this encounter [facility] 03-18-2024 Telephone encounter Note Patient coming in Monday03/27/24 for follow up treatment. Please add lab orders. Thanks. Christi Blum MA [facility] 03-18-2024 Miscellaneous Notes Patient coming in Monday03/27/24 for follow up treatment. Please add lab orders. Thanks. Christi Blum MA documented in this encounter [facility] 03-07-2024 Telephone encounter Note Pt notified and will be here today at 11 for treatment. Josephine Salomon RN [facility] Work Phone: 03-07-2024 Miscellaneous Notes [...] when to restage. documented in this encounter [facility] 03-07-2024 Telephone encounter Note ----- Message from Vivek Smith MD sent at 03/06/2024 4:18 PM EDT ----- Please inform the patient that his tumor marker is relatively stable. We will continue with chemo as planned. When he returns in 3 weeks we will then discuss when to restage. [facility] 03-05-2024 Nurse Note Can patient take Tylenol? Janet Dotson MA [facility] 03-05-2024 Nurse Note Can patient take Tylenol? Janet Dotson MA documented in this encounter [facility] 03-04-2024 Note [facility] 03-04-2024 History of Present illness Narrative PATIENT [...] Microsatellite stable, tumor mutational burden 2 KRAS [id number], RON [id number] positive LABORATORY DATA: Hemoglobin (g/dL) Date Value [...] 05/11/2022 (patient elected to stop chemo). Resumed Dallas and Abraxane 11/23/2022 - 12/14/2022. Stopped due to poor tolerance. Restarted Dallas and Abraxane dose reduced, 2 week on [...] 5. Hypotension The patient was admitted to [facility] 10/16/2023 with dehydration, hypoglycemia, and hypotension. Blood pressure currently stable on midodrine. Continue management per PCP. 6. Central line complication - ICD9: 996.74, ICD10: T82.9XXA Since October 2023 the patient had intermittent redness around the port tube under the skin over his right chest wall. Portogram 12/01/2023 at [facility] was negative. He was given oral antibiotics for possible infection and the symptoms resolved, but continued to recur with each infusion. The right chest infusaport was removed 12/29/2023 and was found to have a small tear noted in the catheter at/near the IJV entry. New Ajpkih-r-Hswn placed 12/29/2023. Vivek Smith MD documented in this encounter [facility] 02-10-2024 Note [facility] 02-10-2024 History of Present illness Narrative PATIENT [...] Microsatellite stable, tumor mutational burden 2 KRAS [id number], RON [id number] positive LABORATORY DATA: Hemoglobin (g/dL) Date Value [...] 05/11/2022 (patient elected to stop chemo). Resumed Dallas and Abraxane 11/23/2022 - 12/14/2022. Stopped due to poor tolerance. Restarted Dallas and Abraxane dose reduced, 2 week on [...] 5. Hypotension The patient was admitted to [facility] 10/16/2023 with dehydration, hypoglycemia, and hypotension. Blood pressure currently stable on midodrine. Continue management per PCP. 6. Central line complication - ICD9: 996.74, ICD10: T82.9XXA Since October 2023 the patient had intermittent redness around the port tube under the skin over his right chest wall. Portogram 12/01/2023 at [facility] was negative. He was given oral antibiotics for possible infection and the symptoms resolved, but continued to recur with each infusion. The right chest infusaport was removed 12/29/2023 and was found to have a small tear noted in the catheter at/near the IJV entry. New Jbfelm-s-Nxpk placed 12/29/2023. Vivek Smith MD documented in this encounter [facility] 01-23-2024 History of Present illness [...] - One lymph node, positive for adenocarcinoma (1/). 4. 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 - See synoptic report. 5. Additional bile duct margin, excision (E) - Negative for carcinoma. 6. Distal bowel margin, excision (F) - Segment of small bowel, negative for carcinoma. Mismatch repair proficient, microsatellite stable. NGS analysis: Microsatellite stable, tumor mutational burden 2 KRAS [id number], RON [id number] positive LABORATORY DATA: Hemoglobin (g/dL) Date Value [...] concerning for metastases, stable. 08/18/2023 CT abdomen/pelvis ([facility] imaging) IMPRESSION: 1. Again noted is metastatic [...] 05/11/2022 (patient elected to stop chemo). Resumed Dallas and Abraxane 11/23/2022 - 12/14/2022. Stopped due to poor tolerance. Restarted Dallas and Abraxane dose reduced, 2 week on [...] 5. Hypotension The patient was admitted to [facility] 10/16/2023 with dehydration, hypoglycemia, and hypotension. Blood pressure currently stable on midodrine. Continue management per PCP. 6. Central line complication - ICD9: 996.74, ICD10: T82.9XXA Since October 2023 the patient had intermittent redness around the port tube under the skin over his right chest wall. Portogram 12/01/2023 at [facility] was negative. He was given [...] which included preparing to see the patient, [id number] patient care, completing clinical documentation, performing a medically appropriate examination, counseling and educating the patient/family/caregiver, ordering medications, tests, or procedures, independently interpreting results (not separately reported), communicating results to the patient/family/caregiver, and care coordination (not separately reported). documented in this encounter [facility] 01-23-2024 Note [facility] 01-04-2024 Telephone encounter Note Pt Brittni, informed of MM message and denies any questions, needs or concerns at this time. Appointment verified. Key Travis RN [facility] 01-04-2024 Miscellaneous Notes Pt , Brittni, informed of MM message and denies any questions, needs or concerns at this time. Appointment verified. Key Travis, RN ----- Message from Greta Wetzel PA-C sent at 01/04/2024 11:40 AM EDT ----- Please call with improving ca19-9 documented in this encounter [facility] 01-04-2024 Telephone encounter Note ----- Message from Greta Wetzel PA-C sent at 01/04/2024 11:40 AM EDT ----- Please call with improving ca19-9 [facility] 01-03-2024 Note [facility] 01-03-2024 History of Present illness Narrative PATIENT [...] Microsatellite stable, tumor mutational burden 2 KRAS [id number], RON [id number] positive LABORATORY DATA: Hemoglobin (g/dL) Date Value [...] 05/11/2022 (patient elected to stop chemo). Resumed Dallas and Abraxane 11/23/2022 - 12/14/2022. Stopped due to poor tolerance. Restarted [place] and Abraxane dose reduced, 2 week on [...] 5. Hypotension The patient was admitted to [facility] 10/16/2023 with dehydration, hypoglycemia, and hypotension. Blood pressure currently stable on midodrine. Continue management per PCP. 6. Central line complication - ICD9: 996.74, ICD10: T82.9XXA Since October 2023 the patient had intermittent redness around the port tube under the skin over his right chest wall. Portogram 12/01/2023 at [facility] was negative. He was given [...] which included preparing to see the patient, [id number]-[id number] patient care, completing clinical documentation, performing a medically appropriate examination, counseling and educating the patient/family/caregiver, ordering medications, tests, or procedures, independently interpreting results (not separately reported), communicating results to the patient/family/caregiver, and care coordination (not separately reported). documented in this encounter [facility] 01-02-2024 Telephone encounter Note Patient coming in Monday01/03/24 for follow up treatment. Please add lab orders. Thanks. Christi Blum MA [facility] 12-27-2023 Miscellaneous Notes You are scheduled for a Port Removal, On 12/29/2023. You are to arrive at 09:00 am and Report to [facility]: [facility]: Radiology Outpatient Desk [id number] You can expect to be here for [...] Labs: Lab-work needs to be drawn? No.. 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 Private car. You will need a responsible adult to accompany you to and from the procedure. Your pick up driver is required to stay with you until you are taken into the procedure room. documented in this encounter [facility] 12-27-2023 Telephone encounter Note You are scheduled for a Port Removal, On 12/29/2023. You are to arrive at 09:00 am and Report to [facility]: [facility]: Radiology Outpatient Desk [id number] You can expect to be here for [...] Labs: Lab-work needs to be drawn? No.. 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 Private car. You will need a responsible adult to accompany you to and from the procedure. Your pick up driver is required to stay with you until you are taken into the procedure room. [facility] 12-26-2023 Telephone encounter Note Called pt unable to leave message at Home #. Left message non detailed message on Cell phone to call back to Radiology Office # [facility] 12-26-2023 Miscellaneous Notes Called pt unable to leave message at Home #. Left message non detailed message on Cell phone to call back to Radiology Office # documented in this encounter [facility] 12-13-2023 Note [facility] 12-13-2023 History of Present illness Narrative Alfred [...] Daja Carnes RN documented in this encounter [facility] 12-10-2023 Note [facility] 12-10-2023 History of Present illness Narrative PATIENT [...] his right chest wall. Portogram 12/01/2023 at [facility] was negative. He was given oral antibiotics for possible infection and the symptoms have resolved. He feels relatively well today and desires to proceed with treatment as planned. Redness around port tube under skin right upper CW. Portagrtam 11/30 at [facility] neg. Given oral abx. Better now [...] polyneuropathy, without long-term current use of insulin ([facility]) 06/07/2023 Gastric outlet obstruction Obstructive [...] Microsatellite stable, tumor mutational burden 2 KRAS [id number], RON [id number] positive LABORATORY DATA: Hemoglobin (g/dL) Date Value [...] 05/11/2022 (patient elected to stop chemo). Resumed [place] and Abraxane 11/23/2022 - 12/14/2022. Stopped due to poor tolerance. Restarted [place] and Abraxane dose reduced, 2 week on [...] 5. Hypotension The patient was admitted to [facility] 10/16/2023 with dehydration, hypoglycemia, and hypotension. Blood pressure currently stable on midodrine. Continue management per PCP. 6. Central line complication - ICD9: 996.74, ICD10: T82.9XXA Since October 2023 the patient has had intermittent redness around the port tube under the skin over his right chest wall. Portogram 12/01/2023 at [facility] was negative. He was given oral antibiotics for possible infection and the symptoms have resolved. Will monitor closely for complications. If symptoms persist the port most likely would need to be changed. Vivek Smith MD documented in this encounter [facility] 12-05-2023 Telephone encounter Note Pt's notified of normal portogram results. Josephine Salomon RN [facility] Work Phone: 12-05-2023 Miscellaneous Notes Pt's notified of normal portogram results. Josephine Salomon RN documented in this encounter [facility] 11-29-2023 Telephone encounter Note Order faxed. Pt notified that we are ordering additional testing. Josephine Salomon RN [facility] Work Phone: 11-29-2023 Miscellaneous Notes Order faxed. Pt notified that we are ordering additional testing. Josephine Salomon RN Spoke with Mandi at [facility] who states they need a portogram [...] call back tomorrow morning to Mandi at [phone] ext [phone] Josephine Salomon RN Did the xray evaluate the catheter during injection of dye? We needed the actual tubing evaluated as this is where the redness occurs for him. To me, it looks like just a typical cxr, we used to do xmaj-d-zcdju or venograms, but I don't know if [...] Josephine Salomon RN documented in this encounter [facility] 11-29-2023 Telephone encounter Note Spoke with Mandi at [facility] who states they need a portogram order. Explained to Mandi that we do not have a portogram order. Will fax IR central line injection order and in comments put portogram. Mandi aware of pt's situation and what we're looking for and will schedule this according. Please sign pending orders. Thanks Josephine Salomon RN [facility] 11-28-2023 Telephone encounter Note Called and spoke with radiology. They do not know what needs to be ordered for this and request that we call back tomorrow morning to Mandi at [phone] ext [phone] Josephine Salomon RN [facility] 11-28-2023 Telephone encounter Note Did the xray evaluate the catheter during injection of dye? We needed the actual tubing evaluated as this is where the redness occurs for him. To me, it looks like just a typical cxr, we used to do gvfc-l-wlqzd or venograms, but I don't know if that is still possible. Greta Wetzel PA-C [facility] 11-28-2023 Telephone encounter Note Call received from pt's asking what is going to be done about pt's port and recurring infection. With both of patients last two treatments his port site became red and he was placed on antibiotics for this. Pt is still on his antibiotic currently. CXR was negative. Please advise Josephine Salomon RN [facility] 11-22-2023 Telephone encounter Note Signed. PSS: please schedule Greta Wetzel PA-C [facility] 11-22-2023 Miscellaneous Notes Signed. PSS: [...] Patient has requested the xray be scheduled @[facility] if not [facility]. He prefers not to be [email or web address] FYI Rx and xray orders pended. PATIENT WOULD LIKE TO BE CALLED documented in this encounter [facility] 11-22-2023 Telephone encounter Note Patient [...] Patient has requested the xray be scheduled @[facility] if not [facility]. He prefers not to be [email or web address] FYI Rx and xray orders pended. PATIENT WOULD LIKE TO BE CALLED [facility] 11-22-2023 Note [facility] 11-22-2023 History of Present illness Narrative Patient [...] Lashaun Riojas RN documented in this encounter [facility] 11-19-2023 Note [facility] 11-19-2023 History of Present illness Narrative PATIENT [...] Microsatellite stable, tumor mutational burden 2 KRAS [id number], RON [id number] positive LABORATORY DATA: Hemoglobin (g/dL) Date Value [...] 05/11/2022 (patient elected to stop chemo). Resumed Dallas and Abraxane 11/23/2022 - 12/14/2022. Stopped due to poor tolerance. Restarted [place] and Abraxane dose reduced, 2 week on [...] 5. Hypotension The patient was admitted to [facility] 10/16/2023 with dehydration, hypoglycemia, and hypotension. Blood pressure currently stable on midodrine. Continue management per PCP. Vivek Smith MD documented in this encounter [facility] 11-17-2023 History of Present illness [...] PATIENT PRESENTS WITH AN IMPLANTABLE OR ATTACHED CEPHALOMETRIC ANALYST: No RADIOLOGY DEPARTMENT: CT; Exam(s) Completed: Chest Abdomen Pelvis PERIPHERAL IV DATA: Site assessment: Clean,Dry and Intact, Site disposition Discontinued SIGNED BY: RT Amanda(R) November 17, 2023 11:05 AM POWER port scanned 02/2022 documented in this encounter [facility] 11-17-2023 Note [facility] 11-17-2023 Note [facility] 11-02-2023 Note [facility] 11-02-2023 History of Present illness Narrative PATIENT NAME: Trinity Perry [facility] NO.: [id number] ATTENDING PHYSICIAN: Grace Bess MD DATE OF [...] lymph nodes. 2. NGS Tissue Based: KRAS [id number], EGFR amplified and RAC 1 Amplified , [...] covered stent 4. CT 01/2022- recurrence 5. Dallas and Abraxane 03/16/2022-05/11/2022 ( elected to stop chemo) 6. Resumed [place] and Abraxane 11/23/2022- 12/14/2022- Stopped due to poor tolerance 7. Restarted [place] and Abraxane dose reduced, 2 week on [...] Range Status 10/31/2023 12.6 % Final Abs [place] Date Value Ref Range Status 10/31/2023 0.61 [...] rising CA 19-9 and elected to restart Dallas and Abraxane 11/23/2022. However, he had a very poor tolerance of therapy and has had declinind QOL. Therapy was held at that time 12/14/2022 Discussed the current status and rising CA 199 and options of no therapy, repeat chemo with dose modifications and or Xeloda. He wants to restart Dallas and Abraxane, which he was on 02/01/2023 and dose reduced and have a 2 week on and 2 week off schedule. Slight delay due to Thanksgiving and URI, his neuropathy is worst and the Abraxane was stopped and continued Dallas. CT 04/2023 wit progressive disease. I had [...] which included preparing to see the patient, [id number] patient care, completing clinical documentation, performing a medically appropriate examination, counseling and educating the patient/family/caregiver, ordering medications, tests, or procedures, independently interpreting results (not separately reported), and communicating results to the patient/family/caregiver. documented in this encounter [facility] 11-02-2023 Note [facility] 11-02-2023 History of Present illness Narrative Patient [...] Lashaun Riojas RN documented in this encounter [facility] 10-31-2023 Note Addended by: GRACE COHEN on: 10/31/2023 11:48 AM Modules accepted: Orders [facility] 10-31-2023 Miscellaneous Notes Addended by: GRACE BESS on: 10/31/2023 11:48 AM Modules accepted: Orders documented in this encounter [facility] 10-31-2023 Note [facility] 10-31-2023 History of Present illness Narrative PATIENT NAME: Trinity Perry [facility] NO.: [id number] ATTENDING PHYSICIAN: Grace Bess MD DATE OF [...] lymph nodes. 2. NGS Tissue Based: KRAS [id number], EGFR amplified and RAC 1 Amplified , [...] covered stent 4. CT 01/2022- recurrence 5. [place] and Abraxane 03/16/2022-05/11/2022 ( elected to stop chemo) 6. Resumed [place] and Abraxane 11/23/2022- 12/14/2022- Stopped due to poor tolerance 7. Restarted [place] and Abraxane dose reduced, 2 week on [...] Range Status 10/31/2023 12.6 % Final Abs [place] Date Value Ref Range Status 10/31/2023 0.61 [...] rising CA 19-9 and elected to restart Dallas and Abraxane 11/23/2022. However, he had a very poor tolerance of therapy and has had declinind QOL. Therapy was held at that time 12/14/2022 Discussed the current status and rising CA 199 and options of no therapy, repeat chemo with dose modifications and or Xeloda. He wants to restart [place] and Abraxane, which he was on 02/01/2023 and dose reduced and have a 2 week on and 2 week off schedule. Slight delay due to Thanksgiving and URI, his neuropathy is worst and the Abraxane was stopped and continued Dallas. CT 04/2023 wit progressive disease. I had [...] do not hesitate to contact me at [phone]. Grace Bess MD Hematology/Medical Oncology [facility] CC: Giovanni Hamlin MD I spent a total of 30 minutes on the date of the service which included preparing to see the patient, [id number] patient care, completing clinical documentation, obtaining and/or reviewing separately obtained history, performing a medically appropriate examination, counseling and educating the patient/family/caregiver, ordering medications, tests, or procedures, and independently interpreting results (not separately reported). documented in this encounter [facility] 10-18-2023 Telephone encounter Note EMERGENCY [...] Patient reminded of her follow-up appointment with [facility] provider, Dr Bess on 11/03/23: Yes Next Payroll Accounting Manager outreach with patient scheduled? As needed Discussed [...] next outreach appointment? YES Josephine Salomon RN [facility] Work Phone: 10-18-2023 Miscellaneous Notes [...] Patient reminded of her follow-up appointment with [facility] provider, Dr Bess on 11/03/23: Yes Next Payroll Accounting Manager outreach with patient scheduled? As needed Discussed [...] well. Darline: can you get records from [place] please. Thanks Josephine Salomon RN documented in this encounter [facility] 10-17-2023 Telephone encounter Note Available records scanned. Patient is still there under observation. [facility] 10-17-2023 Telephone encounter Note Pt's calls stating pt went to the hospital last night because he wasn't responding to her. She states she doesn't think his glucometer is working right. Pt's sugar was much lower when the EMS checked it than what his was reading. states pt was very dehydrated as well. Darline: can you get records from [place] please. Thanks Josephine Salomon RN [facility] 10-17-2023 Telephone encounter Note LVM to notify pt that script he requested was sent. [facility] 10-17-2023 Miscellaneous Notes LVM to [...] worse. Pt is aware that greta and karamlou are on vacation but requested we send a message. documented in this encounter [facility] 10-13-2023 Telephone encounter Note Cipro sent [facility] 10-13-[address] Osorio- if you are okay sending a script [facility] [place]. [facility] 10-13-2023 Telephone encounter Note Pt here for pump dc today with c/o increasing urinary frequency. Greta ran a UA on 10/10 and pt notified that it was negative. Pt asking if something can just be called in to have it on hand in case it keeps getting worse. Pt is aware that greta and karamlou are on vacation but requested we send a message. [facility] 10-11-2023 Note HNO ID: [id number] Author: SAMINA RAE MA Service: ? Author Type: Literacy Consultant Type: Progress Notes Filed: 10/11/2023 13:27 Note Text: Back office UA test performed. Results entered in [employer] and doctor notified. Samina Rae MA [facility] 10-11-2023 History of Present illness Narrative Back office UA test performed. Results entered in [employer] and doctor notified. Samina Rae MA documented in this encounter [facility] 10-11-2023 Nurse Note Pt complaints of fatigue and weakness today. Samina Rae MA [facility] 10-11-2023 History of Present illness Narrative PATIENT NAME: Trinity Gupta [facility] NO.: [id number] ATTENDING PHYSICIAN: Grace Bess MD DATE OF [...] lymph nodes. 2. NGS Tissue Based: KRAS [id number], EGFR amplified and RAC 1 Amplified , [...] covered stent. 4. CT 01/2022- Recurrence. 5. Dallas and Abraxane 03/16/2022-05/11/2022 (Elected to stop chemo). 6. Resumed [place] and Abraxane 11/23/2022- 12/14/2022- Stopped due to poor tolerance. 7. Restarted [place] and Abraxane dose reduced, 2 week on [...] polyneuropathy, without long-term current use of insulin ([facility]) 06/07/2023 Gastric outlet obstruction Obstructive [...] Range Status 10/11/2023 7.7 % Final Abs [place] Date Value Ref Range Status 10/11/2023 0.77 <0.87 k/uL Final Eosin% Date Value Ref Range Status 12/05/2022 0.9 % Final Abs Eosin Date Value Ref Range Status 10/11/2023 <0.03 <0.46 k/uL Final Basophils % Date Value Ref Range Status 10/11/2023 0.4 % Final Abs Baso Date Value Ref Range Status 10/11/2023 0.04 <0.11 k/uL Final PATH: Tahmina on [...] rising CA 19-9 and elected to restart [place] and Abraxane 11/23/2022. However, he had a very poor tolerance of therapy and has had decline in QOL. Therapy was held at that time 12/14/2022. Discussed the current status and rising CA 199 and options of no therapy, repeat chemo with dose modifications and or Xeloda. He wants to restart [place] and Abraxane, which he was on 02/01/2023 and dose reduced and have a 2 week on and 2 week off schedule. Slight delay due to Thanksgiving and URI, his neuropathy is worst and the Abraxane was stopped and continued [place]. CT 04/[address] Bess [...] which included preparing to see the patient, [id number]-[id number] patient care, completing clinical documentation, performing a medically appropriate examination, counseling and educating the patient/family/caregiver, ordering medications, tests, or procedures, independently interpreting results (not separately reported), and communicating results to the patient/family/caregiver. documented in this encounter [facility] 10-11-2023 Note [facility] 10-11-2023 Nurse Note Pt complaints of fatigue and weakness today. Samina Rae MA documented in this encounter [facility] 10-05-2023 Telephone encounter Note Voicemail has not been set up yet. No way to leave a message. Josephine Salomon RN [facility] Work Phone: 10-05-2023 Miscellaneous Notes Voicemail has not been set up yet. No way to leave a message. Josephine Salomon RN ----- Message from Greta Wetzel PA-C sent at 10/04/2023 12:56 PM EDT ----- Please call with improving ca19-9 documented in this encounter [facility] 10-05-2023 Telephone encounter Note ----- Message from Greta Wetzel PA-C sent at 10/04/2023 12:56 PM EDT ----- Please call with improving ca19-9 [facility] 10-04-2023 Telephone encounter Note Pt's voicemail has not been set up yet. Unable to leave a message. Josephine Salomon RN [facility] Work Phone: 10-04-2023 Miscellaneous Notes Pt's voicemail has not been set up yet. Unable to leave a message. Josephine Salomon RN ----- Message from Greta Wetzel PA-C sent at 10/03/2023 4:09 PM EDT ----- Please call with negative cxr documented in this encounter [facility] 10-04-2023 Telephone encounter Note ----- Message from Greta Wetzel PA-C sent at 10/03/2023 4:09 PM EDT ----- Please call with negative cxr [facility] 10-04-2023 Telephone encounter Note Spoke with pt spouse. She discussed with pt. Legs not as swollen, will hold off for now and call back if needed. Denies further questions, needs or concerns at this time. KOFI Travis RN [facility] 10-04-2023 Miscellaneous Notes Spoke with [...] swelling if he wants. Greta Wetzel PA-C [facility] department called with NEGATIVE DVT report. Key Travis RN Patient has been scheduled for STAT US today @ [place] 10/02 between 1 & 1:30 pm. If positive, Radiology will call w/ results. Ora Jones documented in this encounter [facility] 10-03-2023 Telephone encounter Note Spoke with spouse, Brittni.aware of negative DVT per US, and MM recommendation. Pt is home, she is driving. She will discuss with him and call tomorrow with decision on Lasix. Key Travis RN [facility] 10-03-2023 Telephone encounter Note Please inform the patient of negative DVT. We could start lasix 20 mg daily for a week and see if it helps the swelling if he wants. Greta Wetzel PA-C [facility] 10-03-2023 Telephone encounter Note [facility] department called with NEGATIVE DVT report. Key Travis RN [facility] 10-03-2023 History of Present illness [...] PATIENT PRESENTS WITH AN IMPLANTABLE OR ATTACHED CEPHALOMETRIC ANALYST: No RADIOLOGY DEPARTMENT: General X-ray: Exam(s) Completed: Chest X-Ray PERIPHERAL IV DATA: Not applicable SIGNED BY: Allie Amador RT(R) October 03, 2023 12:12 PM documented in this encounter [facility] 10-03-2023 Note [facility] 10-03-2023 Telephone encounter Note Patient has been scheduled for STAT [employer] today @ [place] 10/02 between 1 & 1:30 pm. If positive, Radiology will call w/ results. Ora Jones [facility] 10-03-2023 History of Present illness Narrative PATIENT [facility]: [facility] NO.: [id number] ATTENDING PHYSICIAN: Grace Bess MD DATE OF [...] lymph nodes. 2. NGS Tissue Based: KRAS [id number], EGFR amplified and RAC 1 Amplified , [...] covered stent. 4. CT 01/2022- Recurrence. 5. [place] and Abraxane 03/16/2022-05/11/2022 (Elected to stop chemo). 6. Resumed [place] and Abraxane 11/23/2022- 12/14/2022- Stopped due to poor tolerance. 7. Restarted [place] and Abraxane dose reduced, 2 week on [...] Range Status 10/03/2023 12.7 % Final Abs [place] Date Value Ref Range Status 10/03/2023 1.25 [...] rising CA 19-9 and elected to restart [place] and Abraxane 11/23/2022. However, he had a very poor tolerance of therapy and has had decline in QOL. Therapy was held at that time 12/14/2022. Discussed the current status and rising CA 199 and options of no therapy, repeat chemo with dose modifications and or Xeloda. He wants to restart [place] and Abraxane, which he was on 02/01/2023 and dose reduced and have a 2 week on and 2 week off schedule. Slight delay due to Thanksgiving and URI, his neuropathy is worst and the Abraxane was stopped and continued [place]. CT 04/[address] Bess [...] which included preparing to see the patient, [id number]-kr-[id number] patient care, completing clinical documentation, performing a medically appropriate examination, counseling and educating the patient/family/caregiver, ordering medications, tests, or procedures, independently interpreting results (not separately reported), and communicating results to the patient/family/caregiver. documented in this encounter [facility] 10-03-2023 Note [facility] 09-25-2023 Telephone encounter Note I will place these orders so my day is not delayed, however Yordy saw the patient last and should be the one to place the orders. Greta Wetzel PA-C [facility] 09-25-2023 Miscellaneous Notes I will place these orders so my day is not delayed, however Yordy saw the patient last and should be the one to place the orders. Greta Wetzel PA-C Patient has an appt on 10/03/23. Would you like labs, if so place orders. Janet Dotson MA documented in this encounter [facility] 09-25-2023 Telephone encounter Note Patient has an appt on 10/03/23. Would you like labs, if so place orders. Janet Dotson MA [facility] 09-18-2023 Telephone encounter Note Pt's notified, verbalized understanding Josephine Salomon RN [facility] Work Phone: 09-18-2023 Miscellaneous Notes [...] Josephine Salomon RN documented in this encounter [facility] 09-18-2023 Telephone encounter Note Agree if fevers and or worse he needs to let us know [facility] 09-18-2023 Telephone encounter Note Pt's [...] this helps. Please advise Josephine Salomon RN [facility] 09-13-2023 Note [facility] 09-13-2023 History of Present illness Narrative PATIENT NAME: Trinity Perry [facility] NO.: [id number] ATTENDING PHYSICIAN: Grace Bess MD DATE OF [...] lymph nodes. 2. NGS Tissue Based: KRAS [id number], EGFR amplified and RAC 1 Amplified , [...] covered stent. 4. CT 01/2022- Recurrence. 5. [place] and Abraxane 03/16/2022-05/11/2022 (Elected to stop chemo). 6. Resumed [place] and Abraxane 11/23/2022- 12/14/2022- Stopped due to poor tolerance. 7. Restarted [place] and Abraxane dose reduced, 2 week on [...] Range Status 09/13/2023 15.2 % Final Abs [place] Date Value Ref Range Status 09/13/2023 0.59 [...] rising CA 19-9 and elected to restart [place] and Abraxane 11/23/2022. However, he had a very poor tolerance of therapy and has had declinind QOL. Therapy was held at that time 12/14/2022. Discussed the current status and rising CA 199 and options of no therapy, repeat chemo with dose modifications and or Xeloda. He wants to restart [place] and Abraxane, which he was on 02/01/2023 and dose reduced and have a 2 week on and 2 week off schedule. Slight delay due to Thanksgiving and URI, his neuropathy is worst and the Abraxane was stopped and continued [place]. CT 04/2023 wit progressive disease. I had [...] hesitate to contact Grace Bess MD at [phone]. Yordy Moncada APRN.[employer] Hematology/Medical Oncology [facility] CC: Giovanni Hamlin MD I spent a total of 30 minutes on the date of the service which included preparing to see the patient, jctn-jp-vrup patient care, completing clinical documentation, obtaining and/or reviewing separately obtained history, performing a medically appropriate examination, counseling and educating the patient/family/caregiver, ordering medications, tests, or procedures, independently interpreting results (not separately reported), and communicating results to the patient/family/caregiver. documented in this encounter [facility] 08-23-2023 Note [facility] 08-23-2023 History of Present illness Narrative PATIENT NAME: Trinity Perry [facility] NO.: [id number] ATTENDING PHYSICIAN: Grace Bess MD DATE OF SERVICE: August 23, 2023 Some of the elements of this note have been copied from my previous progress note dated 08/02/2023. All the information has been reviewed carefully. Dear Dr. Hamlin here is an update on a follow up visit on quincy Perry at the clinic August 23, 2023 Diagnosis: 1. T3, N2, M0 pancreatic cancer. Tumor is 8.1 cm, moderately differentiated adenocarcinoma, tumor invades duodenal wall, peripancreatic soft tissue. Margins were negative. Lymphovascular space invasion was present, perineural invasion was present. Metastatic disease in 7 of 27 lymph nodes. 2. NGS Tissue Based: KRAS [id number], EGFR amplified and RAC 1 Amplified , [...] covered stent 4. CT 01/2022- recurrence 5. [place] and Abraxane 03/16/2022-05/11/2022 ( elected to stop chemo) 6. Resumed [place] and Abraxane 11/23/2022- 12/14/2022- Stopped due to poor tolerance 7. Restarted [place] and Abraxane dose reduced, 2 week on [...] Range Status 08/23/2023 15.0 % Final Abs [place] Date Value Ref Range Status 08/23/2023 0.72 [...] rising CA 19-9 and elected to restart [place] and Abraxane 11/23/2022. However, he had a very poor tolerance of therapy and has had declinind QOL. Therapy was held at that time 12/14/2022 Discussed the current status and rising CA 199 and options of no therapy, repeat chemo with dose modifications and or Xeloda. He wants to restart [place] and Abraxane, which he was on 02/01/2023 and dose reduced and have a 2 week on and 2 week off schedule. Slight delay due to Thanksgiving and URI, his neuropathy is worst and the Abraxane was stopped and continued [place]. CT 04/2023 wit progressive disease. I had [...] do not hesitate to contact me at [phone]. Grace Bess MD Hematology/Medical Oncology [facility] CC: Giovanni Hamlin MD I spent a total of 30 minutes on the date of the service which included preparing to see the patient, [id number] patient care, completing clinical documentation, obtaining and/or reviewing separately obtained history, performing a medically appropriate examination, counseling and educating the patient/family/caregiver, ordering medications, tests, or procedures, and independently interpreting results (not separately reported). documented in this encounter [facility] 08-21-2023 Miscellaneous Notes Patient coming in Monday01/03/24 for follow up treatment. Please add lab orders. Thanks. Christi Blum MA documented in this encounter [facility] 08-18-2023 History of Present illness [...] PATIENT PRESENTS WITH AN IMPLANTABLE OR ATTACHED CEPHALOMETRIC ANALYST: No RADIOLOGY DEPARTMENT: CT; Exam(s) Completed: Chest Abdomen Pelvis PERIPHERAL IV DATA: PORT 03/12/22 SIGNED BY: RT Janice(R) August 18, 2023 10:07 AM documented in this encounter [facility] 08-18-2023 Note [facility] 08-18-2023 Note [facility] 08-11-2023 Miscellaneous Notes Call placed to patient again, no answer on both numbers. Left detailed message on [facility] number regarding new updated appts. Ora Jones [...] I know he has his appointment with Maria Alejandra, labs, and Chemo Treatment on MondayAugust 15. The Patient and his , did not want any of the openings for CT Scans prior to August 15 that I offered. They wanted certain days and certain times, nor did the patient want to come without his . Thanks! DEVYN Pelayo documented in this encounter [facility] 08-09-2023 Miscellaneous Notes Pt called [...] Josephine Salomon RN documented in this encounter [facility] 08-02-2023 Note [facility] 08-02-2023 History of Present illness Narrative PATIENT NAME: Trinity Perry [facility] NO.: [id number] ATTENDING PHYSICIAN: Grace Bess MD DATE OF [...] lymph nodes. 2. NGS Tissue Based: KRAS [id number], EGFR amplified and RAC 1 Amplified , [...] covered stent 4. CT 01/2022- recurrence 5. [place] and Abraxane 03/16/2022-05/11/2022 ( elected to stop chemo) 6. Resumed [place] and Abraxane 11/23/2022- 12/14/2022- Stopped due to poor tolerance 7. Restarted [place] and Abraxane dose reduced, 2 week on [...] Range Status 08/02/2023 8.9 % Final Abs [place] Date Value Ref Range Status 08/02/2023 0.48 [...] rising CA 19-9 and elected to restart [place] and Abraxane 11/23/2022. However, he had a very poor tolerance of therapy and has had declinind QOL. Therapy was held at that time 12/14/2022 Discussed the current status and rising CA 199 and options of no therapy, repeat chemo with dose modifications and or Xeloda. He wants to restart [place] and Abraxane, which he was on 02/01/2023 and dose reduced and have a 2 week on and 2 week off schedule. Slight delay due to Thanksgiving and URI, his neuropathy is worst and the Abraxane was stopped and continued [place]. CT 04/2023 wit progressive disease. I had [...] do not hesitate to contact me at [phone]. Grace Bess MD Hematology/Medical Oncology [facility] CC: Giovanni Hamlin MD I spent a total of 30 minutes on the date of the service which included preparing to see the patient, [id number]-eb-[id number] patient care, completing clinical documentation, obtaining and/or reviewing separately obtained history, performing a medically appropriate examination, counseling and educating the patient/family/caregiver, ordering medications, tests, or procedures, and independently interpreting results (not separately reported). documented in this encounter [facility] 07-19-2023 Note [facility] 07-19-2023 History of Present illness Narrative Oncology [...] irinotecan, leucovorin, 5FU Previous Treatment(s): [facility] 12/04/2019, Dallas/Abraxane Pt denies any chewing/swallowing issues, denies current [...] Dosing Weight: 71.5 kg Estimated kilocalorie needs: 8615-3817 kilocalories determined by 30-35 kcal/kg Estimated protein needs: 72-107 grams determined by 1.0-1.5 g/kg Dosing weight Estimated fluid needs: ~8813-4185 milliliters based on 1 mL per kcal [...] 5 mg by mouth once daily. pantoprazole (PROTONIX) 20 mg tablet Take 1 tablet [...] with Patient: 15 minutes Signed by: Ibis Buchanan, , RDN, LD documented in this encounter [facility] 07-19-2023 Note [facility] 07-19-2023 History of Present illness Narrative PATIENT NAME: Trinity Perry [facility] NO.: [id number] ATTENDING PHYSICIAN: Grace Bess MD DATE OF [...] lymph nodes. 2. NGS Tissue Based: KRAS [id number], EGFR amplified and RAC 1 Amplified , [...] covered stent 4. CT 01/2022- Recurrence. 5. [place] and Abraxane 03/16/2022-05/11/2022 ( elected to stop chemo). 6. Resumed [place] and Abraxane 11/23/2022- 12/14/2022- Stopped due to poor tolerance 7. Restarted [place] and Abraxane dose reduced, 2 week on [...] Range Status 07/19/2023 7.7 % Final Abs [place] Date Value Ref Range Status 07/19/2023 0.46 [...] rising CA 19-9 and elected to restart [place] and Abraxane 11/23/2022. However, he had a very poor tolerance of therapy and has had declinind QOL. Therapy was held at that time 12/14/2022. Discussed the current status and rising CA 199 and options of no therapy, repeat chemo with dose modifications and or Xeloda. He wants to restart [place] and Abraxane, which he was on 02/01/2023 and dose reduced and have a 2 week on and 2 week off schedule. Slight delay due to Thanksgiving and URI, his neuropathy is worst and the Abraxane was stopped and continued [place]. CT 04/2023 with progressive disease. We had [...] not hesitate to contact Dr. Bess at [phone]. Yordy Moncada APRN.CNP Hematology/Medical Oncology [facility] CC: Giovanni Hamlin MD I spent a total of 30 minutes on the date of the service which included preparing to see the patient, [id number] patient care, completing clinical documentation, obtaining and/or reviewing separately obtained history, performing a medically appropriate examination, counseling and educating the patient/family/caregiver, ordering medications, tests, or procedures, independently interpreting results (not separately reported), and communicating results to the patient/family/caregiver. documented in this encounter [facility] 07-05-2023 Note [facility] 07-05-2023 History of Present illness Narrative PATIENT NAME: Trinity Perry [facility] NO.: [id number] ATTENDING PHYSICIAN: Grace Bess MD DATE OF [...] lymph nodes. 2. NGS Tissue Based: KRAS [id number], EGFR amplified and RAC 1 Amplified , [...] covered stent 4. CT 01/2022- Recurrence. 5. Dallas and Abraxane 03/16/2022-05/11/2022 ( elected to stop chemo). 6. Resumed Dallas and Abraxane 11/23/2022- 12/14/2022- Stopped due to poor tolerance 7. Restarted Dallas and Abraxane dose reduced, 2 week on [...] polyneuropathy, without long-term current use of insulin ([facility]) 06/07/2023 Gastric outlet obstruction Obstructive [...] Range Status 07/05/2023 6.9 % Final Abs [place] Date Value Ref Range Status 07/05/2023 0.41 [...] rising CA 19-9 and elected to restart Dallas and Abraxane 11/23/2022. However, he had a very poor tolerance of therapy and has had declinind QOL. Therapy was held at that time 12/14/2022. Discussed the current status and rising CA 199 and options of no therapy, repeat chemo with dose modifications and or Xeloda. He wants to restart Dallas and Abraxane, which he was on 02/01/2023 and dose reduced and have a 2 week on and 2 week off schedule. Slight delay due to Thanksgiving and URI, his neuropathy is worst and the Abraxane was stopped and continued Dallas. CT 04/2023 with progressive disease. We had [...] not hesitate to contact Dr. Bess at [phone]. Yordy Moncada APRN.[employer] Hematology/Medical Oncology [facility] CC: Giovanni Hamlin MD I spent a total of 30 minutes on the date of the service which included preparing to see the patient, [id number] patient care, completing clinical documentation, obtaining and/or reviewing separately obtained history, performing a medically appropriate examination, counseling and educating the patient/family/caregiver, ordering medications, tests, or procedures, independently interpreting results (not separately reported), and communicating results to the patient/family/caregiver. documented in this encounter [facility] 06-23-2023 Miscellaneous Notes Pt's calls requesting tumor marker results. Notified her that they were not drawn at his visit on Monday, and are ordered for next time. Josephine Salomon RN documented in this encounter [facility] 06-21-2023 Note [facility] 06-21-2023 Note [facility] 06-07-2023 Note [facility] 06-07-2023 Note [facility] 06-07-2023 Note [facility] 05-24-2023 Note [facility] 05-18-2023 History of Present illness Narrative Radiology [...] Not applicable SIGNED BY: RT Amanda(R) May 18, 2023 10:33 AM POWER port scanned 03/02/2022-NS documented in this encounter [facility] 05-18-2023 Note [facility] 05-18-2023 Note [facility] 05-12-2023 Note [facility] 05-08-2023 Telephone encounter Note Please order Cre for upcoming CT-pt on nephrotoxic chemo Thank You! Vaishali Marie RN [facility] 05-08-2023 Miscellaneous Notes Please order Cre for upcoming CT-pt on nephrotoxic chemo Thank You! Vaishali Marie RN documented in this encounter [facility] 05-05-2023 Note HNO ID: [id number] Author: Daja Carnes RN Service: ? 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 Daja Carnes RN [facility] 05-05-2023 History of Present illness Narrative It was confirmed with to hold abraxane today due to worsening neuropathy. Daja Carnes RN documented in this encounter [facility] 05-05-2023 Note [facility] 05-05-2023 History of Present illness Narrative PATIENT NAME: Trinity Perry [facility] NO.: [id number] ATTENDING PHYSICIAN: Grace Bess MD DATE OF [...] lymph nodes. 2. NGS Tissue Based: KRAS [id number], EGFR amplified and RAC 1 Amplified , [...] covered stent 4. CT 01/2022- recurrence 5. Dallas and Abraxane 03/16/2022-05/11/2022 ( elected to stop chemo) 6. Resumed Dallas and Abraxane 11/23/2022- 12/14/2022- Stopped due to poor tolerance 7. Restarted Dallas and Abraxane dose reduced, 2 week on [...] Range Status 05/05/2023 7.7 % Final Abs [place] Date Value Ref Range Status 05/05/2023 1.12 [...] rising CA 19-9 and elected to restart Dallas and Abraxane 11/23/2022. However, he had a very poor tolerance of therapy and has had declinind QOL. Therapy was held at that time 12/14/2022 Discussed the current status and rising CA 199 and options of no therapy, repeat chemo with dose modifications and or Xeloda. He wants to restart Dallas and Abraxane, which he was on 02/01/2023 [...] do not hesitate to contact me at [phone]. Grace Bess MD Hematology/Medical Oncology [facility] CC: Giovanni Hamlin MD I spent a total of 30 minutes on the date of the service which included preparing to see the patient, [id number] patient care, completing clinical documentation, obtaining and/or reviewing separately obtained history, performing a medically appropriate examination, counseling and educating the patient/family/caregiver, ordering medications, tests, or procedures, and independently interpreting results (not separately reported). documented in this encounter [facility] 04-07-2023 Miscellaneous Notes Pt notified of results. Josephine Salomon RN ----- Message from Grace Bess MD sent at 04/07/2023 9:10 AM EST ----- Please call with tumor marker. documented in this encounter [facility] 04-05-2023 Miscellaneous Notes Addended by: YORDY MONCADA on: 04/05/2023 03:25 PM Modules accepted: Orders documented in this encounter [facility] 04-05-2023 History of Present illness Narrative PATIENT NAME: Trinity Gupta [facility] NO.: [id number] ATTENDING PHYSICIAN: Grace Bess MD DATE OF [...] lymph nodes. 2. NGS Tissue Based: KRAS [id number], EGFR amplified and RAC 1 Amplified , [...] covered stent. 4. CT 01/2022- Recurrence. 5. Dallas and Abraxane 03/16/2022-05/11/2022 ( elected to stop chemo) 6. Resumed Dallas and Abraxane 11/23/2022- 12/14/2022- Stopped due to poor tolerance 7. Restarted [place] and Abraxane dose reduced, 2 week on [...] Range Status 04/05/2023 2.0 % Final Abs [place] Date Value Ref Range Status 04/05/2023 0.21 [...] rising CA 19-9 and elected to restart [place] and Abraxane 11/23/2022. However, he had a very poor tolerance of therapy and has had declined QOL. Therapy was held at that time 12/14/2022. CA 199 began to rise and options of no therapy, repeat chemo with dose modifications and/or Xeloda. He wanted to restart Dallas and Abraxane, which he was on 02/01/2023 [...] chemotherapy and will monitor closely. Yordy Moncada APRN.[employer] CC: Giovanni Hamlin MD I spent a total of 30 minutes on the date of the service which included preparing to see the patient, [id number]-[id number] patient care, completing clinical documentation, obtaining and/or reviewing separately obtained history, performing a medically appropriate examination, counseling and educating the patient/family/caregiver, ordering medications, tests, or procedures, independently interpreting results (not separately reported), and communicating results to the patient/family/caregiver. documented in this encounter [facility] 04-04-2023 Miscellaneous Notes Pt notified of results. Josephine Salomon RN Please call with ca19-9 results documented in this encounter [facility] 03-30-2023 History of Present illness Narrative PATIENT NAME: Trinity Perry [facility] NO.: [id number] ATTENDING PHYSICIAN: Grace Bess MD DATE OF [...] lymph nodes. 2. NGS Tissue Based: KRAS [id number], EGFR amplified and RAC 1 Amplified , [...] covered stent 4. CT 01/2022- recurrence 5. Dallas and Abraxane 03/16/2022-05/11/2022 ( elected to stop chemo) 6. Resumed Dallas and Abraxane 11/23/2022- 12/14/2022- Stopped due to poor tolerance 7. Restarted [place] and Abraxane dose reduced, 2 week on [...] Range Status 03/30/2023 10.4 % Final Abs [place] Date Value Ref Range Status 03/30/2023 0.82 [...] rising CA 19-9 and elected to restart Dallas and Abraxane 11/23/2022. However, he had a very poor tolerance of therapy and has had declined QOL. Therapy was held at that time 12/14/2022 CA 199 began to rise and options of no therapy, repeat chemo with dose modifications and/or Xeloda. He wanted to restart Dallas and Abraxane, which he was on 02/01/2023 [...] Giovanni Hamlin MD documented in this encounter [facility] 03-08-2023 History of Present illness Narrative PATIENT NAME: Trinity Perry [facility] NO.: [id number] ATTENDING PHYSICIAN: Grace Bess MD DATE OF [...] lymph nodes. 2. NGS Tissue Based: KRAS [id number], EGFR amplified and RAC 1 Amplified , [...] covered stent 4. CT 01/2022- recurrence 5. Dallas and Abraxane 03/16/2022-05/11/2022 ( elected to stop chemo) 6. Resumed [place] and Abraxane 11/23/2022- 12/14/2022- Stopped due to poor tolerance 7. Restarted [place] and Abraxane dose reduced, 2 week on [...] Range Status 03/01/2023 11.6 % Final Abs [place] Date Value Ref Range Status 03/01/2023 0.94 [...] rising CA 19-9 and elected to restart Dallas and Abraxane 11/23/2022. However, he had a very poor tolerance of therapy and has had declinind QOL. Therapy was held at that time 12/14/2022 Discussed the current status and rising CA 199 and options of no therapy, repeat chemo with dose modifications and or Xeloda. He wants to restart Dallas and Abraxane, which he was on 02/01/2023 [...] do not hesitate to contact me at [phone]. Grace Bess MD Hematology/Medical Oncology [facility] CC: Giovanni Hamlin MD I spent a total of 30 minutes on the date of the service which included preparing to see the patient, vqwe-gq-[id number] patient care, completing clinical documentation, obtaining and/or reviewing separately obtained history, performing a medically appropriate examination, counseling and educating the patient/family/caregiver, ordering medications, tests, or procedures, and independently interpreting results (not separately reported). documented in this encounter [facility] 03-02-2023 Miscellaneous Notes Pt notified of results and is agreeable to this. Josephine Salomon RN ----- Message from Grace Bess MD sent at 03/02/2023 1:57 PM EDT ----- Tell him that his Tumor marker is stable and if he is ok we will continue the chemo for now documented in this encounter [facility] 02-08-2023 History of Present illness Narrative Dex discontinued from tx plan per due to elevated blood sugars. Florinda Rincon RN documented in this encounter [facility] 02-08-2023 History of Present illness Narrative PATIENT NAME: Trinity Perry [facility] NO.: [id number] ATTENDING PHYSICIAN: Grace Bess MD DATE OF [...] lymph nodes. 2. NGS Tissue Based: KRAS [id number], EGFR amplified and RAC 1 Amplified , [...] stent . 4. CT 01/2022- Recurrence. 5. Dallas and Abraxane 03/16/2022-05/11/2022. (Elected to stop chemo) 6. Resumed Dallas and Abraxane 11/23/2022- 12/14/2022- Stopped due to poor tolerance. 7. Restarted Dallas and Abraxane dose reduced, 2 week on [...] Range Status 02/08/2023 4.3 % Final Abs [place] Date Value Ref Range Status 02/08/2023 0.22 [...] rising CA 19-9 and elected to restart Dallas and Abraxane 11/23/2022. However, he had a very poor tolerance of therapy and has had declinind QOL. Therapy was held at that time 12/14/2022. Restarted Dallas and Abraxane 02/01/2023. Will continue with dose [...] hesitate to contact Grace Bess MD at [phone]. Yordy Moncada APRN.[facility] Hematology/Medical Oncology [facility] CC: Giovanni Hamlin MD I spent a total of 30 minutes on the date of the service which included preparing to see the patient, [id number] patient care, completing clinical documentation, obtaining and/or reviewing separately obtained history, performing a medically appropriate examination, counseling and educating the patient/family/caregiver, ordering medications, tests, or procedures, independently interpreting results (not separately reported), and communicating results to the patient/family/caregiver. documented in this encounter [facility] 02-01-2023 Miscellaneous Notes He likely [...] Elisha Reece RN documented in this encounter [facility] 02-01-2023 History of Present illness Narrative PATIENT NAME: Trinity Perry [facility] NO.: [id number] ATTENDING PHYSICIAN: Grace Bess MD DATE OF [...] lymph nodes. 2. NGS Tissue Based: KRAS [id number], EGFR amplified and RAC 1 Amplified , [...] covered stent 4. CT 01/2022- recurrence 5. Dallas and Abraxane 03/16/2022-05/11/2022 ( elected to stop chemo) 6. Resumed Dallas and Abraxane 11/23/2022- 12/14/2022- Stopped due to poor tolerance 7. Restarted [place] and Abraxane dose reduced, 2 week on [...] Range Status 02/01/2023 6.1 % Final Abs [place] Date Value Ref Range Status 02/01/2023 0.70 [...] rising CA 19-9 and elected to restart Dallas and Abraxane 11/23/2022. However, he had a very poor tolerance of therapy and has had declinind QOL. Therapy was held at that time 12/14/2022 Discussed the current status and rising CA 199 and options of no therapy, repeat chemo with dose modifications and Xeloda. He wants to restart Dallas and Abraxane. Will dose reduce and have a 2 week on and 2 week off schedule Continue nutrition follow up Anemia- Improved off chemo DM- Follow endocrine See back next week for day 8 Thank you for the kind referral. If there are any questions and or concerns please do not hesitate to contact me at [phone]. Grace Bess MD Hematology/Medical Oncology [facility] CC: Giovanni Hamlin MD I spent a total of 30 minutes on the date of the service which included preparing to see the patient, ejww-ni-rvlc patient care, completing clinical documentation, obtaining and/or reviewing separately obtained history, performing a medically appropriate examination, counseling and educating the patient/family/caregiver, ordering medications, tests, or procedures, and independently interpreting results (not separately reported). documented in this encounter [facility] 01-04-2023 History of Present illness Narrative PATIENT NAME: Trinity Perry CLIN[facility] NO.: [id number] ATTENDING PHYSICIAN: Grace Bess MD DATE OF SERVICE: January 04, 2023 Some of the elements of this note have been copied from my previous progress note dated 12/14/2022. All the information has been reviewed carefully. Dear Dr. Hamlin here is an update on a follow up visit on quincy Perry at the clinic January 04, 2023 Diagnosis: 1. T3, N2, M0 pancreatic cancer. Tumor is 8.1 cm, moderately differentiated adenocarcinoma, tumor invades duodenal wall, peripancreatic soft tissue. Margins were negative. Lymphovascular space invasion was present, perineural invasion was present. Metastatic disease in 7 of 27 lymph nodes. 2. NGS Tissue Based: KRAS [id number], EGFR amplified and RAC 1 Amplified , [...] covered stent 4. CT 01/2022- recurrence 5. Dallas and Abraxane 03/16/2022-05/11/2022 ( elected to stop chemo) 6. Resumed Dallas and Abraxane 11/23/2022- 12/14/2022- Stopped due to [...] Range Status 01/04/2023 8.8 % Final Abs [place] Date Value Ref Range Status 01/04/2023 0.87 [...] rising CA 19-9 and elected to restart Dallas and Abraxane 11/23/2022. However, he has very [...] do not hesitate to contact me at [phone]. Grace Bess MD Hematology/Medical Oncology [facility] CC: Giovanni Hamlin MD I spent a total of 30 minutes on the date of the service which included preparing to see the patient, [id number]-dh-[id number] patient care, completing clinical documentation, obtaining and/or reviewing separately obtained history, performing a medically appropriate examination, counseling and educating the patient/family/caregiver, ordering medications, tests, or procedures, and independently interpreting results (not separately reported). documented in this encounter [facility] 12-21-2022 Miscellaneous Notes Pt's notified [...] PA-C Call received from riley Choi at [facility] stating pt's CT is negative for PE. Shows subtle nodular tree-in-bud opacities predominantly in the right upper lobe concerning for infectious bronchiolitis. Josephine Salomon RN documented in this encounter [facility] 12-21-2022 History of Present illness Narrative Left sutures to forehead removed as ordered per Jacoby Wetzel PA-C, patient tolerated well, S/S of infections reinforced patient and spouse verbalizes understanding Lashaun Riojas RN documented in this encounter [facility] 12-21-2022 History of Present illness Narrative PATIENT NAME: Trinity Perry [facility] NO.: [id number] ATTENDING PHYSICIAN: Grace Bess MD DATE OF [...] lymph nodes. 2. NGS Tissue Based: KRAS [id number], EGFR amplified and RAC 1 Amplified , [...] covered stent 4. CT 01/2022- recurrence 5. Dallas and Abraxane 03/16/2022-05/11/2022 ( elected to stop chemo) 6. Resumed Dallas and Abraxane 11/23/2022 HPI: Alfred returns for day 8 of treatment. He complains of weakness, fatigue and LINDSEY. He feel while at [facility] 12/[facility]22 and [facility] [...] Range Status 12/21/2022 8.5 % Final Abs [place] Date Value Ref Range Status 12/21/2022 0.32 [...] rising CA 19-9 and elected to restart Dallas and Abraxane 11/23/2022. Dallas dose was decreased with cycle 2 day [...] Giovanni Hamlin MD documented in this encounter [facility] 12-15-2022 Hospital Discharge instructions Additional Instructions Tetanus was updated today in emergency department Sutures should be removed in 5 to 7 days Apply ice to affected area Neosporin daily Sunscreen after healed to reduce scarring For signs of infection redness, swelling, purulent drainage follow-up immediately Follow-up with your doctor for recheck in the next 3 to 5 days [facility] Work Phone: 12-05-2022 History of Present illness Narrative PAT[facility]: [facility] NO.: [id number] ATTENDING PHYSICIAN: Grace Bess MD DATE OF [...] lymph nodes. 2. NGS Tissue Based: KRAS [id number], EGFR amplified and RAC 1 Amplified , [...] covered stent 4. CT 01/2022- recurrence 5. Dallas and Abraxane 03/16/2022-05/11/2022 ( elected to stop chemo) 6. Resumed Dallas and Abraxane 11/23/2022 HPI: Trinity returns for [...] Range Status 11/30/2022 4.3 % Final Abs [place] Date Value Ref Range Status 11/30/2022 0.26 [...] rising CA 19-9 and elected to restart Dallas and Abraxane 11/23/2022. Tolerating well, however, is having significant anemia, likely from chemotherapy. Will type and cross and transfuse 1 unit of PRBCs. He will return in 1 week for the next cycle of chemotherapy, and will like need dose reductions. Continue nutrition follow up DM- Follow endocrine Greta Wetzel PA-C CC: Giovanni Hamlin MD documented in this encounter [facility] 11-30-2022 History of Present illness Narrative PATIENT NAME: Trinity Perry [facility] NO.: [id number] ATTENDING PHYSICIAN: Grace Bess MD DATE OF SERVICE: November 30, 2022 Some of the elements of this note have been copied from my previous progress note dated 11/10/2022. All the information has been reviewed carefully. Dear Dr. Hamlin here is an update on a follow up visit on male Triniyt Perry at the clinic November 30, 2022 Diagnosis: 1. T3, N2, M0 pancreatic cancer. Tumor is 8.1 cm, moderately differentiated adenocarcinoma, tumor invades duodenal wall, peripancreatic soft tissue. Margins were negative. Lymphovascular space invasion was present, perineural invasion was present. Metastatic disease in 7 of 27 lymph nodes. 2. NGS Tissue Based: KRAS [id number], EGFR amplified and RAC 1 Amplified , [...] covered stent 4. CT 01/2022- recurrence 5. Dallas and Abraxane 03/16/2022-05/11/2022 ( elected to stop chemo) 6. Resumed Dallas and Abraxane 11/23/2022 HPI: Trinity Perry is [...] Range Status 11/30/2022 4.3 % Final Abs [place] Date Value Ref Range Status 11/30/2022 0.26 [...] rising CA 19-9 and elected to restart Dallas and Abraxane 11/23/2022 Continue nutrition follow up Anemia- Will repeat CBC next week as he is more anemic with the start of the chemo DM- Follow endocrine RTC next week for cbc check Thank you for the kind referral. If there are any questions and or concerns please do not hesitate to contact me at [phone]. Grace Bess MD Hematology/Medical Oncology [facility] CC: Giovanni Hamlin MD I spent a total of 30 minutes on the date of the service which included preparing to see the patient, gfam-kr-nymc patient care, completing clinical documentation, obtaining and/or reviewing separately obtained history, performing a medically appropriate examination, counseling and educating the patient/family/caregiver, ordering medications, tests, or procedures, and independently interpreting results (not separately reported). documented in this encounter [facility] 11-28-[address] [...] appt Thank you documented in this encounter [facility] 11-23-2022 History of Present illness Narrative PATIENT NAME: Trinity Perry [facility] NO.: [id number] ATTENDING PHYSICIAN: Grace Bess MD DATE OF [...] lymph nodes. 2. NGS Tissue Based: KRAS [id number], EGFR amplified and RAC 1 Amplified , [...] covered stent 4. CT 01/2022- recurrence 5. 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 Today he complains of complete exhaustion . [...] Range Status 11/23/2022 7.1 % Final Abs [place] Date Value Ref Range Status 11/23/2022 0.77 <0.87 k/uL Final Eosinophils % Date Value Ref Range Status 11/23/2022 0.5 % Final Abs Eosin Date Value Ref Range Status 11/23/2022 0.05 <0.46 k/uL Final Basophils % Date Value Ref Range Status 11/23/2022 0.3 % Final Abs Baso Date Value Ref Range Status 11/23/2022 0.03 <0.11 k/uL Final PATH: Tahmina on November: [...] patient's request. Greta Wetzel PA-C CC: Giovanni Salinas II Fara Hamlin MD documented in this encounter [facility] 11-10-2022 Miscellaneous Notes Spoke with [...] Josephine Salomon RN documented in this encounter [facility] 11-10-2022 History of Present illness Narrative PATIENT NAME: Trinity Perry [facility] NO.: [id number] ATTENDING PHYSICIAN: Grace Bess MD DATE OF [...] lymph nodes. 2. NGS Tissue Based: KRAS [id number], EGFR amplified and RAC 1 Amplified , [...] covered stent 4. CT 01/2022- recurrence 5. Dallas and Abraxane 03/16/2022-05/11/2022 ( elected to stop [...] Range Status 09/29/2022 8.0 % Final Abs [place] Date Value Ref Range Status 09/29/2022 0.68 [...] resuming theroay again and they agreed Restart Dallas and Abraxane again next week. Continue nutrition follow up Anemia- Monitor- Improved Resume chemo next week Thank you for the kind referral. If there are any questions and or concerns please do not hesitate to contact me at [phone]. Grace Bess MD Hematology/Medical Oncology [facility] CC: Giovanni Hamlin MD I spent a total of 30 minutes on the date of the service which included preparing to see the patient, [id number]-oa-[id number] patient care, completing clinical documentation, obtaining and/or reviewing separately obtained history, performing a medically appropriate examination, counseling and educating the patient/family/caregiver, ordering medications, tests, or procedures, and independently interpreting results (not separately reported). documented in this encounter [facility] 11-07-2022 Miscellaneous Notes Pt notified of results. Josephine Salomon RN ----- Message from Grace Bess MD sent at 11/06/2022 11:30 AM EDT ----- Call with stable CT scan and no evidence of progressive disease documented in this encounter [facility] 11-03-2022 History of Present illness Narrative Summary: IRB# [id number] Informed Consent CASE [id number] (IRB [id number]): Tissue [...] Clinical Research Nurse documented in this encounter [facility] [facility] 11-03-2022 History of Present illness [...] Site disposition Discontinued power port accessed by [employer] SIGNED BY: RT Cornelio(R) November 03, 2022 10:36 AM documented in this encounter [facility] 09-29-2022 History of Present illness Narrative PATIENT NAME: Trinity Perry [facility] NO.: [id number] ATTENDING PHYSICIAN: Grace Bess MD DATE OF SERVICE: September 29, 2022 Some of the elements of this note have been copied from my previous progress note dated 08/02/2022. All the information has been reviewed carefully. Dear Dr. Hamlin here is an update on a follow up visit on male Trinity Perry at the clinic September 29, 2022 Diagnosis: 1. T3, N2, M0 pancreatic cancer. Tumor is 8.1 cm, moderately differentiated adenocarcinoma, tumor invades duodenal wall, peripancreatic soft tissue. Margins were negative. Lymphovascular space invasion was present, perineural invasion was present. Metastatic disease in 7 of 27 lymph nodes. 2. NGS Tissue Based: KRAS [id number], EGFR amplified and RAC 1 Amplified , [...] covered stent 4. CT 01/2022- recurrence 5. Dallas and Abraxane 03/16/2022-05/11/2022 ( elected to stop [...] Range Status 08/02/2022 8.6 % Final Abs [place] Date Value Ref Range Status 08/02/2022 0.81 [...] do not hesitate to contact me at [phone]. Grace Bess MD Hematology/Medical Oncology [facility] CC: Giovanni Hamlin MD I spent a total of 30 minutes on the date of the service which included preparing to see the patient, ganx-ia-iezz patient care, completing clinical documentation, obtaining and/or reviewing separately obtained history, performing a medically appropriate examination, counseling and educating the patient/family/caregiver, ordering medications, tests, or procedures, and independently interpreting results (not separately reported). documented in this encounter [facility] 08-02-2022 History of Present illness Narrative PATIENT NAME: Trinity Perry [facility] NO.: [id number] ATTENDING PHYSICIAN: Grace Bess MD DATE OF [...] lymph nodes. 2. NGS Tissue Based: KRAS [id number], EGFR amplified and RAC 1 Amplified , [...] covered stent 4. CT 01/2022- recurrence 5. Dallas and Abraxane 03/16/2022-05/11/2022 ( elected to stop [...] Range Status 08/02/2022 8.6 % Final Abs [place] Date Value Ref Range Status 08/02/2022 0.81 [...] do not hesitate to contact me at [phone]. Grace Bess MD Hematology/Medical Oncology [facility] CC: Giovanni Hamlin MD I spent a total of 30 minutes on the date of the service which included preparing to see the patient, iyhl-of-ikqn patient care, completing clinical documentation, obtaining and/or reviewing separately obtained history, performing a medically appropriate examination, counseling and educating the patient/family/caregiver, ordering medications, tests, or procedures, and independently interpreting results (not separately reported). documented in this encounter [facility] 07-27-2022 History of Present illness [...] TIME: 11:36 AM documented in this encounter [facility] 06-29-2022 History of Present illness Narrative PATIENT NAME: Trinity Perry [facility] NO.: [id number] ATTENDING PHYSICIAN: Grace Bess MD DATE OF [...] lymph nodes. 2. NGS Tissue Based: KRAS [id number], EGFR amplified and RAC 1 Amplified , [...] covered stent 4. CT 01/2022- recurrence 5. Dallas and Abraxane 03/16/2022 HPI: Trinity Perry is [...] 06/29/2022 2.15 1.00 - 4.00 k/uL Final [place]% Date Value Ref Range Status 06/29/2022 10.2 % Final Abs [place] Date Value Ref Range Status 06/29/2022 1.05 [...] do not hesitate to contact me at [phone]. Grace Bess MD Hematology/Medical Oncology [facility] CC: Giovanni Hamlin MD I spent a total of 30 minutes on the date of the service which included preparing to see the patient, shed-lb-[id number] patient care, completing clinical documentation, obtaining and/or reviewing separately obtained history, performing a medically appropriate examination, counseling and educating the patient/family/caregiver, ordering medications, tests, or procedures, and independently interpreting results (not separately reported). documented in this encounter [facility] 05-25-2022 History of Present illness [...] IV DATA: Not applicable SIGNED BY: Allie Amador, RT(R) May 25, 2022 10:56 AM POWER port scanned 03/02/2022-NS documented in this encounter [facility] 05-11-2022 Miscellaneous Notes Addended by: GRACE BESS on: 05/11/2022 09:59 AM Modules accepted: Orders documented in this encounter [facility] 05-11-2022 History of Present illness Narrative PATIENT NAME: Trinity Perry [facility] NO.: [id number] ATTENDING PHYSICIAN: Grace Bess MD DATE OF [...] lymph nodes. 2. NGS Tissue Based: KRAS [id number], EGFR amplified and RAC 1 Amplified , [...] covered stent 4. CT 01/2022- recurrence 5. Dallas and Abraxane 03/16/2022 HPI: Trinity Perry is [...] 05/11/2022 1.49 1.00 - 4.00 k/uL Final [place]% Date Value Ref Range Status 05/11/2022 12.7 % Final Abs [place] Date Value Ref Range Status 05/11/2022 0.79 [...] high risk. Here for cycle 4 and Dallas and Abraxane and will skip next week and plan imaging and see back in 3 weeks Continue nutrition follow up Anemia- Monitor. Thank you for the kind referral. If there are any questions and or concerns please do not hesitate to contact me at [phone]. Grace Bess MD Hematology/Medical Oncology [facility] CC: Giovanni Hamlin MD I spent a total of 30 minutes on the date of the service which included preparing to see the patient, arjz-yq-hzkr patient care, completing clinical documentation, obtaining and/or reviewing separately obtained history, performing a medically appropriate examination, counseling and educating the patient/family/caregiver, ordering medications, tests, or procedures, and independently interpreting results (not separately reported). documented in this encounter [facility] 04-27-2022 History of Present illness Narrative PATIENT NAME: Trinity Perry [facility] NO.: [id number] ATTENDING PHYSICIAN: Grace Bess MD DATE OF [...] lymph nodes. 2. NGS Tissue Based: KRAS [id number], EGFR amplified and RAC 1 Amplified , [...] hesitate to contact Grace Bess MD at [phone]. Yordy Moncada APRN.[facility] Hematology/Medical Oncology [facility] CC: Giovanni Hamlin MD documented in this encounter [facility] 04-20-2022 Miscellaneous Notes Call received from [facility] needing clarification on gabapentin script. Script is written to be taken daily for a quantity of 30, but states for 14 days on the script. Discussed with Dr Bess and he would like this for a full 30 days. Orders given to pharmacist without difficulty. Josephine Salomon RN documented in this encounter [facility] 04-06-2022 History of Present illness Narrative PATIENT NAME: Trinity Perry CLIN[facility] NO.: [id number] ATTENDING PHYSICIAN: Grace Bess MD DATE OF [...] 03/30/2022 1.48 1.00 - 4.00 k/uL Final [place]% Date Value Ref Range Status 03/30/2022 8.7 % Final Abs [place] Date Value Ref Range Status 03/30/2022 0.56 [...] very high risk. He was started on Dallas and abraxane 03/09/2022 with good tolerance so [...] Giovanni Hamlin MD documented in this encounter [facility] 04-05-2022 Miscellaneous Notes Pt has reviewed his results on my chart Josephine Salomon RN ----- Message from Greta Wetzel PA-C sent at 03/31/2022 10:46 AM EST ----- Please call with [id number] documented in this encounter [facility] 03-30-2022 Miscellaneous Notes Call received from Candy, pharmacist at [facility], regarding gabapentin script. Discussed with Greta who states pt will be taking it for 30 days now because it's working well. Pharmacist notified of this and she will remove the portion of the sig that says for 14 days. Josephine Salomon RN documented in this encounter [facility] 03-30-2022 History of Present illness Narrative PATIENT NAME: Trinity Perry [facility] NO.: [id number] ATTENDING PHYSICIAN: Grace Bess MD DATE OF [...] 03/30/2022 1.48 1.00 - 4.00 k/uL Final [place]% Date Value Ref Range Status 03/30/2022 8.7 % Final Abs [place] Date Value Ref Range Status 03/30/2022 0.56 [...] very high risk. He was started on Dallas and abraxane 03/09/2022 with good tolerance so far. Labs reviewed and stable. Proceed with cycle 2 day 1 today and return in 1 week for day 8. 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 Stable today, monitor Guardant 360 and tissue based NGS- still pending Medical Cancer genetics- germline testing negative Continue nutrition follow up Greta Wetzel PA-C CC: Giovanni Hamlin MD documented in this encounter [facility] 03-28-2022 Miscellaneous Notes Hitesh Brady Results left on patient voicemail. Trinity Perry's Multi-Cancer panel plus preliminary evidence pancreatic cancer and pancreatitis genes through [employer] was negative for a pathogenic variant. Please see [employer] message for further discussion. Jose Antonio Emerson MS, [facility] Licensed, Certified Genetic Counselor documented in this encounter [facility] 03-17-2022 Miscellaneous Notes Pt's notified of negative stool results. Josephine Salomon RN documented in this encounter [facility] 03-16-2022 History of Present illness Narrative [facility] Consultation Note Genetic Counselor: Jose Antonio Emerson MS, [facility] Patient: Trinity Perry Patient Name and confirmed at initiation of visit. Appointment occurred via audiovisual communication through [employer] Virtual Visit. HIGH LEVEL SUMMARY: The patient's [...] appropriate standard National Comprehensive Cancer Network and [place] [employer] guidelines, with consideration of their [...] PALB2, PDGFRA, PHOX2B, PMS2, POLD1, POLE, POT1, ZPHBX5H, PTCH1, PTEN, RAD50, RAD51C, RAD51D, RB1, RECQL4, RET, RUNX1, SDHA, SDHAF2, SDHB, SDHC, SDHD, SMAD4, SMARCA4, SMARCB1, SMARCE1, STK11, SUFU, TERC, TERT, BPLB440, TP53, TSC1, TSC2, VHL, WRN, and WT1. [...] greater than 50% of which was spent gdwg-ge-gggf counseling. This plan is being carried out under the oversight of Dr. Marina Aaron. This note will also be sent to the referring provider via the electronic medical record. Jose Antonio Emerson MS, [facility] Licensed, Certified Genetic Counselor [facility] CC: Dr. Grace Aaron documented in this encounter [facility] 03-16-2022 History of Present illness Narrative Pt c/o neuropathy becoming more aggravating. Bilateral hands up to forearms. This is not new since starting treatment. This was discussed with Akshat Prakash at treatment chairside and he will be given a trial of neurontin to take prior to bedtime. No change in doses required. documented in this encounter [facility] 03-16-2022 Miscellaneous Notes Addended by: GRETA WETZEL on: 03/16/2022 11:21 AM Modules accepted: Orders documented in this encounter [facility] 03-16-2022 History of Present illness [...] MS, RDN, LD documented in this encounter [facility] 03-16-2022 Nurse Note Patient states that he has numbness in both hands and arms, he thinks it may be arthritits. Stomach is also queezy . He does states he feels short of breath, also has had some bleeding with brushing teeth and blowing nose. Janet Dotson MA documented in this encounter [facility] 03-16-2022 History of Present illness Narrative PATIENT NAME: Trinity Perry [facility] NO.: [id number] ATTENDING PHYSICIAN: Grace Bess MD DATE OF [...] 03/16/2022 1.38 1.00 - 4.00 k/uL Final [place]% Date Value Ref Range Status 03/16/2022 7.7 % Final Abs [place] Date Value Ref Range Status 03/16/2022 0.28 [...] very high risk. He was started on Dallas and abraxane 03/09/2022 with good tolerance so [...] Giovanni Hamlin MD documented in this encounter [facility] 03-14-2022 Miscellaneous Notes CYCLE 1/DAY [...] attention and after hours number protocol. Josephine G Greene, RN documented in this encounter [facility] 03-10-2022 Miscellaneous Notes Pt's called tester electronic scale physician last night with questions regarding antiemetics. 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 Unknown EMPLOYMENT/FINANCIAL/HEALTH INSURANCE: Employment: Retired Income source: Social Security Insurance: Medicare with co-insurance Prescription coverage: Yes Is the patient appropriate for referral to [facility] COBRA Assistance program? No Financial Distress: No [place]: No FOOD INSECURITY Within the past year, [...] EPIC: No Health Care Durable Power of Search Engineer: Yes Scanned into EPIC: No Guardianship: NA [...] male with pancreatic cancer. Patient lives in [place], [place] with his Brittni Connor . Patient [...] PRN Follow up appointment with SW in: JULES Santos-S documented in this encounter [facility] 03-09-2022 Miscellaneous Notes Call received from pt's stating they are at [facility] in [place] waiting for pt's nausea medications. Call placed to our pharmacy and scripts will be transferred to [facility] in [place] shortly. Josephine Salomon RN documented in this encounter [facility] 03-09-2022 Miscellaneous Notes Patient assessed [...] cup from daughter (nurse in oncology in [place]) and will refrigerate specimen until his appointment [...] Josephine Salomon RN documented in this encounter [facility] 03-09-2022 Miscellaneous Notes 1st report of treatment-Benefit investigation complete. Patient is active with Medicare, LOC 80%, $233 deductible has $0 remaining. He carries Plan G [employer] supplement which will cover the 20% allowable balances. Estimate shows patient financial responsibility is $0 for each treatment in 2021. Called the patient to discuss, left a voicemail to return call. documented in this encounter [facility] 03-09-2022 History of Present illness Narrative Oncology Nutrition Therapy Initial Assessment RECOMMENDED MALNUTRITION DIAGNOSIS: NO MALNUTRITION IDENTIFIED Nutrition Diagnosis: Food and Nutrition related knowledge deficit related to lack of prior nutrition-related education as evidenced by verbalizes inaccurate or incomplete information OR no prior knowledge of need for jwgk-cbk-[id number] related recommendations Nutrition Intervention: -aim for small [...] 1.0-1.3 g/kg Dosing weight Estimated fluid needs: ~3386-4336 milliliters based on 1 mL per kcal [...] follow Referred/Supervised by: Josephine Salomon RN/Dr. Bess MNT Billing Type: Initial Assess/15 min 2 units Time Spent with Patient: 30 minutes Signed by: Ibis Harvey MS, RDN, LD documented in this encounter [facility] 03-09-2022 History of Present illness Narrative PATIENT NAME: Trinity Perry [facility] NO.: [id number] ATTENDING PHYSICIAN: Grace Bess MD DATE OF SERVICE: March 09, 2022 Some of the elements of this note have been copied from my previous progress note dated 02/22/2022. All the information has been reviewed carefully. Dear Dr. Hamlin here is an update on a follow up visit on male Trinity Perry at the clinic March 09, 2022 [...] 03/07/2022 1.76 1.00 - 4.00 k/uL Final [place]% Date Value Ref Range Status 03/07/2022 6.4 % Final Abs [place] Date Value Ref Range Status 03/07/2022 0.69 [...] very high risk. Patient here to start Dallas and Abraxane. Discussed AE again and he wishes to proceed. Guardant 360 and tissue based NGS- pending Medical Cancer genetics- Appontment pending Continue nutrition follow up See back in 1 week for day 8 Thank you for the kind referral. If there are any questions and or concerns please do not hesitate to contact me at [phone]. Grace Bess MD Hematology/Medical Oncology [facility] CC: Giovanni Hamlin MD I spent a total of 30 minutes on the date of the service which included preparing to see the patient, tpww-mi-fzld patient care, completing clinical documentation, obtaining and/or reviewing separately obtained history, performing a medically appropriate examination, counseling and educating the patient/family/caregiver, ordering medications, tests, or procedures, and independently interpreting results (not separately reported). documented in this encounter [facility] 03-07-2022 History of Present illness [...] Josephine Salomon RN documented in this encounter [facility] 03-07-2022 History of Present illness [...] port scanned 03/02/2022-NS documented in this encounter [facility] 03-04-2022 Miscellaneous Notes Pt will be in for education Monday. Please sign pending antiemetics for gem/abraxane. Thanks Josephine Salomon RN documented in this encounter [facility] 02-25-2022 Miscellaneous Notes You are scheduled for a Mediport Placement, On 03/02/2022. You are to arrive at 12:30 pm and Report to [facility] for Sedation Cases: [facility]: Enter through [facility] Katz entrance. Proceed [...] if they are not done at a [facility] facility. . 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 Private car. You will need a responsible adult to accompany you to and from the procedure. Your pick up driver is required to stay with you until you are taken into the procedure room. If you have any questions please call [phone] documented in this encounter [facility] 02-22-2022 Miscellaneous Notes Patient's appointments [...] Josephine Salomon RN documented in this encounter [facility] 02-22-2022 Miscellaneous Notes Pt saw Dr Bess this morning and has several questions at checkout regarding treatment. Questions answered and reassurance given. Josephine Salomon RN documented in this encounter [facility] 02-22-2022 History of Present illness Narrative PATIENT NAME: Trinity Perry [facility] NO.: [id number] ATTENDING PHYSICIAN: Grace Bess MD DATE OF SERVICE: February 22, 2022 Some of the elements of this note have been copied from my previous progress note dated 03/20/2020. All the information has been reviewed carefully. Dear Dr. Hamlin here is an update on a follow up visit on quincy Perry at the clinic February 22, 2022 [...] 0.55 (L) 1.00 - 4.00 k/uL Final [place]% Date Value Ref Range Status 02/05/2021 4.9 % Final Abs [place] Date Value Ref Range Status 02/05/2021 1.27 [...] need systemic therapy at this time. Discussed Dallas and Abraxane based on the IMPACT trial and also the toxicity, Refer to Port placement Guardant 360 and tissue based NGS Refer to Medical Cancer genetics Refer to Nutrition Chemo teach Start therapy in 2 weeks Thank you for the kind referral. If there are any questions and or concerns please do not hesitate to contact me at [phone]. Grace Bses MD Hematology/Medical Oncology [facility] CC: Giovanni Hamlin MD I spent a total of 55 minutes on the date of the service which included preparing to see the patient, pbhm-kb-[id number] patient care, completing clinical documentation, obtaining and/or reviewing separately obtained history, performing a medically appropriate examination, counseling and educating the patient/family/caregiver, ordering medications, tests, or procedures, and independently interpreting results (not separately reported). documented in this encounter [facility] 02-22-2022 Nurse Note Patient states [...] Janet Dotson MA documented in this encounter [facility] 02-18-2022 History of Present illness [...] Fara Monaco MD documented in this encounter [facility] 02-15-2022 History of Present illness [...] 2022 11:34 AM documented in this encounter [facility] 02-10-[address] Pancreas [...] to come before the winter. Please call [phone]. documented in this encounter [facility] 10-22-2021 Nurse Note Patient requesting [...] REFERRAL (RECOMMENDATION): None documented in this encounter [facility] 08-10-[address] 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 Is there any issue with pt having xray? Ph. [phone] Please Advise Sahra Olmstead (Alexi) Roll Winder II DDSI documented in this encounter [facility] 03-23-2020 Note [id number] [facility] 03-09-2020 History of Past i llness Narrative Problem Noted Date Resolved Date Sepsis 03/09/2020 03/13/2020 Obesity, Class II, BMI 35-39.9 12/06/2019 1 07/09/2019 documented as of this encounter (statuses as of 08/10/2021) [facility] History of Past illness Narrative* Problem Noted Date Resolved Date Sepsis 03/09/2020 03/13/2020 Obesity, Class II, BMI 35-39.9 12/06/2019 1 07/09/2019 documented as of this encounter (statuses as of 10/23/2021) [facility] History of Past illness Narrative* Problem Noted Date Resolved Date Sepsis 03/09/2020 03/13/2020 Obesity, Class II, BMI 35-39.9 12/06/2019 1 07/09/2019 documented as of this encounter (statuses as of 02/08/2022) [facility] History of Past illness Narrative* Problem Noted Date Resolved Date Sepsis 03/09/2020 03/13/2020 Obesity, Class II, BMI 35-39.9 12/06/2019 1 07/09/2019 documented as of this encounter (statuses as of 02/10/2022) [facility] History of Past illness Narrative* Problem Noted Date Resolved Date Sepsis 03/09/2020 03/13/2020 Obesity, Class II, BMI 35-39.9 12/06/2019 1 07/09/2019 documented as of this encounter (statuses as of 02/18/2022) [facility] History of Past illness Narrative* Problem Noted Date Resolved Date Sepsis 03/09/2020 03/13/2020 Obesity, Class II, BMI 35-39.9 12/06/2019 1 07/09/2019 documented as of this encounter (statuses as of 02/22/2022) [facility] History of Past illness Narrative* Problem Noted Date Resolved Date Sepsis 03/09/2020 03/13/2020 Obesity, Class II, BMI 35-39.9 12/06/2019 1 07/09/2019 documented as of this encounter (statuses as of 02/23/2022) [facility] History of Past illness Narrative* Problem Noted Date Resolved Date Sepsis 03/09/2020 03/13/2020 Obesity, Class II, BMI 35-39.9 12/06/2019 1 07/09/2019 documented as of this encounter (statuses as of 02/25/2022) [facility] of Past illness Narrative* Problem Noted Date Resolved Date Sepsis 03/09/2020 03/13/2020 Obesity, Class II, BMI 35-39.9 12/06/2019 1 07/09/2019 documented as of this encounter (statuses as of 02/28/2022) [facility] of Past illness Narrative* Problem Noted Date Resolved Date Sepsis 03/09/2020 03/13/2020 Obesity, Class II, BMI 35-39.9 12/06/2019 1 07/09/2019 documented as of this encounter (statuses as of 03/07/2022) [facility] of Past illness Narrative* Problem Noted Date Resolved Date Sepsis 03/09/2020 03/13/2020 Obesity, Class II, BMI 35-39.9 12/06/2019 1 07/09/2019 documented as of this encounter (statuses as of 03/07/2022) [facility] of Past illness Narrative* Problem Noted Date Resolved Date Sepsis 03/09/2020 03/13/2020 Obesity, Class II, BMI 35-39.9 12/06/2019 1 07/09/2019 documented as of this encounter (statuses as of 03/09/2022) [facility] of [facility] illness Narrative* Problem Noted Date Resolved Date Sepsis 03/09/2020 03/13/2020 Obesity, Class II, BMI 35-39.9 12/06/2019 1 07/09/2019 documented as of this encounter (statuses as of 03/09/2022) [facility]-2020 History of Past illness Narrative* Problem Noted Date Resolved Date Sepsis 03/09/2020 03/13/2020 Obesity, Class II, BMI 35-39.9 12/06/2019 1 07/09/2019 documented as of this encounter (statuses as of 03/09/2022) [facility]2020 History of Past illness Narrative* Problem Noted Date Resolved Date Sepsis 03/09/2020 03/13/2020 Obesity, Class II, BMI 35-39.9 12/06/2019 1 07/09/2019 documented as of this encounter (statuses as of 03/10/2022) [facility]2020 History of Past illness Narrative* Problem Noted Date Resolved Date Sepsis 03/09/2020 03/13/2020 Obesity, Class II, BMI 35-39.9 12/06/2019 1 07/09/2019 documented as of this encounter (statuses as of 03/11/2022) [facility]2020 History of Past illness Narrative* Problem Noted Date Resolved Date Sepsis 03/09/2020 03/13/2020 Obesity, Class II, BMI 35-39.9 12/06/2019 1 07/09/2019 documented as of this encounter (statuses as of 03/14/2022) [facility]2020 History of Past illness Narrative* Problem Noted Date Resolved Date Sepsis 03/09/2020 03/13/2020 Obesity, Class II, BMI 35-39.9 12/06/2019 1 07/09/2019 documented as of this encounter (statuses as of 03/16/2022) [facility]2020 History of Past illness Narrative* Problem Noted Date Resolved Date Sepsis 03/09/2020 03/13/2020 Obesity, Class II, BMI 35-39.9 12/06/2019 1 07/09/2019 documented as of this encounter (statuses as of 03/16/2022) [facility]2020 History of Past illness Narrative* Problem Noted Date Resolved Date Sepsis 03/09/2020 03/13/2020 Obesity, Class II, BMI 35-39.9 12/06/2019 1 07/09/2019 documented as of this encounter (statuses as of 03/16/2022) [facility]2020 History of Past illness Narrative* Problem Noted Date Resolved Date Sepsis 03/09/2020 03/13/2020 Obesity, Class II, BMI 35-39.9 12/06/2019 1 07/09/2019 documented as of this encounter (statuses as of 03/16/2022) [facility]2020 History of Past illness Narrative* Problem Noted Date Resolved Date Sepsis 03/09/2020 03/13/2020 Obesity, Class II, BMI 35-39.9 12/06/2019 1 07/09/2019 documented as of this encounter (statuses as of 03/17/2022) [facility]2020 History of Past illness Narrative* Problem Noted Date Resolved Date Sepsis 03/09/2020 03/13/2020 Obesity, Class II, BMI 35-39.9 12/06/2019 1 07/09/2019 documented as of this encounter (statuses as of 03/28/2022) [address]19-2020 History of Past illness Narrative* Problem Noted Date Resolved Date Sepsis 03/09/2020 03/13/2020 Obesity, Class II, BMI 35-39.9 12/06/2019 1 07/09/2019 documented as of this encounter (statuses as of 03/30/2022) [facility]2020 History of Past illness Narrative* Problem Noted Date Resolved Date Sepsis 03/09/2020 03/13/2020 Obesity, Class II, BMI 35-39.9 12/06/2019 1 07/09/2019 documented as of this encounter (statuses as of 03/30/2022) [facility]2020 History of Past illness Narrative* Problem Noted Date Resolved Date Sepsis 03/09/2020 03/13/2020 Obesity, Class II, BMI 35-39.9 12/06/2019 1 07/09/2019 documented as of this encounter (statuses as of 03/30/2022) [address]19-2020 History of Past illness Narrative* Problem Noted Date Resolved Date Sepsis 03/09/2020 03/13/2020 Obesity, Class II, BMI 35-39.9 12/06/2019 1 07/09/2019 documented as of this encounter (statuses as of 04/05/2022) [facility]2020 History of Past illness Narrative* Problem Noted Date Resolved Date Sepsis 03/09/2020 03/13/2020 Obesity, Class II, BMI 35-39.9 12/06/2019 1 07/09/2019 documented as of this encounter (statuses as of 04/06/2022) [facility]2020 History of Past illness Narrative* Problem Noted Date Resolved Date Sepsis 03/09/2020 03/13/2020 Obesity, Class II, BMI 35-39.9 12/06/2019 1 07/09/2019 documented as of this encounter (statuses as of 04/06/2022) [facility]2020 History of Past illness Narrative* Problem Noted Date Resolved Date Sepsis 03/09/2020 03/13/2020 Obesity, Class II, BMI 35-39.9 12/06/2019 1 07/09/2019 documented as of this encounter (statuses as of 04/06/2022) [facility]2020 History of Past illness Narrative* Problem Noted Date Resolved Date Sepsis 03/09/2020 03/13/2020 Obesity, Class II, BMI 35-39.9 12/06/2019 1 07/09/2019 documented as of this encounter (statuses as of 04/20/2022) [facility]2020 History of Past illness Narrative* Problem Noted Date Resolved Date Sepsis 03/09/2020 03/13/2020 Obesity, Class II, BMI 35-39.9 12/06/2019 1 07/09/2019 documented as of this encounter (statuses as of 04/20/2022) [facility]2020 History of Past illness Narrative* Problem Noted Date Resolved Date Sepsis 03/09/2020 03/13/2020 Obesity, Class II, BMI 35-39.9 12/06/2019 1 07/09/2019 documented as of this encounter (statuses as of 04/26/2022) [facility]2020 History of Past illness Narrative* Problem Noted Date Resolved Date Sepsis 03/09/2020 03/13/2020 Obesity, Class II, BMI 35-39.9 12/06/2019 1 07/09/2019 documented as of this encounter (statuses as of 04/27/2022) [facility]2020 History of Past illness Narrative* Problem Noted Date Resolved Date Sepsis 03/09/2020 03/13/2020 Obesity, Class II, BMI 35-39.9 12/06/2019 1 07/09/2019 documented as of this encounter (statuses as of 04/29/2022) [facility]2020 History of Past illness Narrative* Problem Noted Date Resolved Date Sepsis 03/09/2020 03/13/2020 Obesity, Class II, BMI 35-39.9 12/06/2019 1 07/09/2019 documented as of this encounter (statuses as of 05/11/2022) [facility]2020 History of Past illness Narrative* Problem Noted Date Resolved Date Sepsis 03/09/2020 03/13/2020 Obesity, Class II, BMI 35-39.9 12/06/2019 1 07/09/2019 documented as of this encounter (statuses as of 05/11/2022) [facility]2020 History of Past illness Narrative* Problem Noted Date Resolved Date Sepsis 03/09/2020 03/13/2020 Obesity, Class II, BMI 35-39.9 12/06/2019 1 07/09/2019 documented as of this encounter (statuses as of 05/11/2022) [facility]2020 History of Past illness Narrative* Problem Noted Date Resolved Date Sepsis 03/09/2020 03/13/2020 Obesity, Class II, BMI 35-39.9 12/06/2019 1 07/09/2019 documented as of this encounter (statuses as of 05/13/2022) [facility]2020 History of Past illness Narrative* Problem Noted Date Resolved Date Sepsis 03/09/2020 03/13/2020 Obesity, Class II, BMI 35-39.9 12/06/2019 1 07/09/2019 documented as of this encounter (statuses as of 06/01/2022) [facility]2020 History of Past illness Narrative* Problem Noted Date Resolved Date Sepsis 03/09/2020 03/13/2020 Obesity, Class II, BMI 35-39.9 12/06/2019 1 07/09/2019 documented as of this encounter (statuses as of 06/29/2022) [facility]2020 History of Past illness Narrative* Problem Noted Date Resolved Date Sepsis 03/09/2020 03/13/2020 Obesity, Class II, BMI 35-39.9 12/06/2019 1 07/09/2019 documented as of this encounter (statuses as of 06/29/2022) [facility]2020 History of Past illness Narrative* Problem Noted Date Resolved Date Sepsis 03/09/2020 03/13/2020 Obesity, Class II, BMI 35-39.9 12/06/2019 1 07/09/2019 documented as of this encounter (statuses as of 08/02/2022) [facility]2020 History of Past illness Narrative* Problem Noted Date Resolved Date Sepsis 03/09/2020 03/13/2020 Obesity, Class II, BMI 35-39.9 12/06/2019 1 07/09/2019 documented as of this encounter (statuses as of 08/02/2022) [facility]2020 History of Past illness Narrative* Problem Noted Date Resolved Date Sepsis 03/09/2020 03/13/2020 Obesity, Class II, BMI 35-39.9 12/06/2019 1 07/09/2019 documented as of this encounter (statuses as of 08/04/2022) [facility]2020 History of Past illness Narrative* Problem Noted Date Resolved Date Sepsis 03/09/2020 03/13/2020 Obesity, Class II, BMI 35-39.9 12/06/2019 1 07/09/2019 documented as of this encounter (statuses as of 09/29/2022) [facility]2020 History of Past illness Narrative* Problem Noted Date Resolved Date Sepsis 03/09/2020 03/13/2020 Obesity, Class II, BMI 35-39.9 12/06/2019 1 07/09/2019 documented as of this encounter (statuses as of 09/29/2022) [facility]2020 History of Past illness Narrative* Problem Noted Date Resolved Date Sepsis 03/09/2020 03/13/2020 Obesity, Class II, BMI 35-39.9 12/06/2019 1 07/09/2019 documented as of this encounter (statuses as of 11/03/2022) [facility]2020 History of Past illness Narrative* Problem Noted Date Resolved Date Sepsis 03/09/2020 03/13/2020 Obesity, Class II, BMI 35-39.9 12/06/2019 1 07/09/2019 documented as of this encounter (statuses as of 11/07/2022) [address]19-2020 History of Past illness Narrative* Problem Noted Date Resolved Date Sepsis 03/09/2020 03/13/2020 Obesity, Class II, BMI 35-39.9 12/06/2019 1 07/09/2019 documented as of this encounter (statuses as of 11/10/2022) [facility]2020 History of Past illness Narrative* Problem Noted Date Resolved Date Sepsis 03/09/2020 03/13/2020 Obesity, Class II, BMI 35-39.9 12/06/2019 1 07/09/2019 documented as of this encounter (statuses as of 11/10/2022) [facility]2020 History of Past illness Narrative* Problem Noted Date Resolved Date Sepsis 03/09/2020 03/13/2020 Obesity, Class II, BMI 35-39.9 12/06/2019 1 07/09/2019 documented as of this encounter (statuses as of 11/24/2022) [address]19-2020 History of Past illness Narrative* Problem Noted Date Resolved Date Sepsis 03/09/2020 03/13/2020 Obesity, Class II, BMI 35-39.9 12/06/2019 1 07/09/2019 documented as of this encounter (statuses as of 11/24/2022) [facility]2020 History of Past illness Narrative* Problem Noted Date Resolved Date Sepsis 03/09/2020 03/13/2020 Obesity, Class II, BMI 35-39.9 12/06/2019 1 07/09/2019 documented as of this encounter (statuses as of 11/24/2022) [address]19-2020 History of Past illness Narrative* Problem Noted Date Diagnosed Date Resolved Date Sepsis 03/09/2020 03/13/2020 Obesity, Class II, BMI 35-39.9 12/06/2019 05/08/2020 documented as of this encounter (statuses as of 11/28/2022) [address]19-2020 History of Past illness Narrative* Problem Noted Date Diagnosed Date Resolved Date Sepsis 03/09/2020 03/13/2020 Obesity, Class II, BMI 35-39.9 12/06/2019 05/08/2020 documented as of this encounter (statuses as of 11/30/2022) [facility]2020 History of Past illness Narrative* Problem Noted Date Diagnosed Date Resolved Date Sepsis 03/09/2020 03/13/2020 Obesity, Class II, BMI 35-39.9 12/06/2019 05/08/2020 documented as of this encounter (statuses as of 11/30/2022) [facility]2020 History of Past illness Narrative* Problem Noted Date Diagnosed Date Resolved Date Sepsis 03/09/2020 03/13/2020 Obesity, Class II, BMI 35-39.9 12/06/2019 05/08/2020 documented as of this encounter (statuses as of 12/05/2022) [facility]2020 History of Past illness Narrative* Problem Noted Date Diagnosed Date Resolved Date Sepsis 03/09/2020 03/13/2020 Obesity, Class II, BMI 35-39.9 12/06/2019 05/08/2020 documented as of this encounter (statuses as of 12/05/2022) [address]19-2020 History of Past illness Narrative* Problem Noted Date Diagnosed Date Resolved Date Sepsis 03/09/2020 03/13/2020 Obesity, Class II, BMI 35-39.9 12/06/2019 05/08/2020 documented as of this encounter (statuses as of 12/06/2022) [facility]2020 History of Past illness Narrative* Problem Noted Date Diagnosed Date Resolved Date Sepsis 03/09/2020 03/13/2020 Obesity, Class II, BMI 35-39.9 12/06/2019 05/08/2020 documented as of this encounter (statuses as of 12/06/2022) [address]19-2020 History of Past illness Narrative* Problem Noted Date Diagnosed Date Resolved Date Sepsis 03/09/2020 03/13/2020 Obesity, Class II, BMI 35-39.9 12/06/2019 05/08/2020 documented as of this encounter (statuses as of 12/14/2022) [address]19-2020 History of Past illness Narrative* Problem Noted Date Diagnosed Date Resolved Date Sepsis 03/09/2020 03/13/2020 Obesity, Class II, BMI 35-39.9 12/06/2019 05/08/2020 documented as of this encounter (statuses as of 12/14/2022) [facility]2020 History of Past illness Narrative* Problem Noted Date Diagnosed Date Resolved Date Sepsis 03/09/2020 03/13/2020 Obesity, Class II, BMI 35-39.9 12/06/2019 05/08/2020 documented as of this encounter (statuses as of 12/21/2022) [facility]2020 History of Past illness Narrative* Problem Noted Date Diagnosed Date Resolved Date Sepsis 03/09/2020 03/13/2020 Obesity, Class II, BMI 35-39.9 12/06/2019 05/08/2020 documented as of this encounter (statuses as of 12/21/2022) [facility]2020 History of Past illness Narrative* Problem Noted Date Diagnosed Date Resolved Date Sepsis 03/09/2020 03/13/2020 Obesity, Class II, BMI 35-39.9 12/06/2019 05/08/2020 documented as of this encounter (statuses as of 12/21/2022) [facility]2020 History of Past illness Narrative* Problem Noted Date Diagnosed Date Resolved Date Sepsis 03/09/2020 03/13/2020 Obesity, Class II, BMI 35-39.9 12/06/2019 05/08/2020 documented as of this encounter (statuses as of 12/22/2022) [facility]2020 History of Past illness Narrative* Problem Noted Date Diagnosed Date Resolved Date Sepsis 03/09/2020 03/13/2020 Obesity, Class II, BMI 35-39.9 12/06/2019 05/08/2020 documented as of this encounter (statuses as of 01/05/2023) [facility]2020 History of Past illness Narrative* Problem Noted Date Diagnosed Date Resolved Date Sepsis 03/09/2020 03/13/2020 Obesity, Class II, BMI 35-39.9 12/06/2019 05/08/2020 documented as of this encounter (statuses as of 02/01/2023) [facility]2020 History of Past illness Narrative* Problem Noted Date Diagnosed Date Resolved Date Sepsis 03/09/2020 03/13/2020 Obesity, Class II, BMI 35-39.9 12/06/2019 05/08/2020 documented as of this encounter (statuses as of 02/01/2023) [address]19-2020 History of Past illness Narrative* Problem Noted Date Diagnosed Date Resolved Date Sepsis 03/09/2020 03/13/2020 Obesity, Class II, BMI 35-39.9 12/06/2019 05/08/2020 documented as of this encounter (statuses as of 02/09/2023) [facility]2020 History of Past illness Narrative* Problem Noted Date Diagnosed Date Resolved Date Sepsis 03/09/2020 03/13/2020 Obesity, Class II, BMI 35-39.9 12/06/2019 05/08/2020 documented as of this encounter (statuses as of 02/10/2023) [facility]2020 History of Past illness Narrative* Problem Noted Date Diagnosed Date Resolved Date Sepsis 03/09/2020 03/13/2020 Obesity, Class II, BMI 35-39.9 12/06/2019 05/08/2020 documented as of this encounter (statuses as of 02/11/2023) [facility]2020 History of Past illness Narrative* Problem Noted Date Diagnosed Date Resolved Date Sepsis 03/09/2020 03/13/2020 Obesity, Class II, BMI 35-39.9 12/06/2019 05/08/2020 documented as of this encounter (statuses as of 03/01/2023) [facility]2020 History of Past illness Narrative* Problem Noted Date Diagnosed Date Resolved Date Sepsis 03/09/2020 03/13/2020 Obesity, Class II, BMI 35-39.9 12/06/2019 05/08/2020 documented as of this encounter (statuses as of 03/03/2023) [facility]2020 History of Past illness Narrative* Problem Noted Date Diagnosed Date Resolved Date Sepsis 03/09/2020 03/13/2020 Obesity, Class II, BMI 35-39.9 12/06/2019 05/08/2020 documented as of this encounter (statuses as of 03/08/2023) [facility]2020 History of Past illness Narrative* Problem Noted Date Diagnosed Date Resolved Date Sepsis 03/09/2020 03/13/2020 Obesity, Class II, BMI 35-39.9 12/06/2019 05/08/2020 documented as of this encounter (statuses as of 03/08/2023) [facility]2020 History of Past illness Narrative* Problem Noted Date Diagnosed Date Resolved Date Sepsis 03/09/2020 03/13/2020 Obesity, Class II, BMI 35-39.9 12/06/2019 05/08/2020 documented as of this encounter (statuses as of 03/09/2023) [facility]2020 History of Past illness Narrative* Problem Noted Date Diagnosed Date Resolved Date Sepsis 03/09/2020 03/13/2020 Obesity, Class II, BMI 35-39.9 12/06/2019 05/08/2020 documented as of this encounter (statuses as of 03/31/2023) [facility]2020 History of Past illness Narrative* Problem Noted Date Diagnosed Date Resolved Date Sepsis 03/09/2020 03/13/2020 Obesity, Class II, BMI 35-39.9 12/06/2019 05/08/2020 documented as of this encounter (statuses as of 04/05/2023) [facility]2020 History of Past illness Narrative* Problem Noted Date Diagnosed Date Resolved Date Sepsis 03/09/2020 03/13/2020 Obesity, Class II, BMI 35-39.9 12/06/2019 05/08/2020 documented as of this encounter (statuses as of 04/05/2023) [facility]2020 History of Past illness Narrative* Problem Noted Date Diagnosed Date Resolved Date Sepsis 03/09/2020 03/13/2020 Obesity, Class II, BMI 35-39.9 12/06/2019 05/08/2020 documented as of this encounter (statuses as of 04/05/2023) [facility]2020 History of Past illness Narrative* Problem Noted Date Diagnosed Date Resolved Date Sepsis 03/09/2020 03/13/2020 Obesity, Class II, BMI 35-39.9 12/06/2019 05/08/2020 documented as of this encounter (statuses as of 04/06/2023) [facility]2020 History of Past illness Narrative* Problem Noted Date Diagnosed Date Resolved Date Sepsis 03/09/2020 03/13/2020 Obesity, Class II, BMI 35-39.9 12/06/2019 05/08/2020 documented as of this encounter (statuses as of 04/07/2023) [facility]2020 History of Past illness Narrative* Problem Noted Date Diagnosed Date Resolved Date Sepsis 03/09/2020 03/13/2020 Obesity, Class II, BMI 35-39.9 12/06/2019 05/08/2020 documented as of this encounter (statuses as of 05/05/2023) [address]19-2020 History of Past illness Narrative* Problem Noted Date Diagnosed Date Resolved Date Sepsis 03/09/2020 03/13/2020 Obesity, Class II, BMI 35-39.9 12/06/2019 05/08/2020 documented as of this encounter (statuses as of 05/06/2023) [address]19-2020 History of Past illness Narrative* Problem Noted Date Diagnosed Date Resolved Date Sepsis 03/09/2020 03/13/2020 Obesity, Class II, BMI 35-39.9 12/06/2019 05/08/2020 documented as of this encounter (statuses as of 05/06/2023) [address]19-2020 History of Past illness Narrative* Problem Noted Date Diagnosed Date Resolved Date Sepsis 03/09/2020 03/13/2020 Obesity, Class II, BMI 35-39.9 12/06/2019 05/08/2020 documented as of this encounter (statuses as of 06/23/2023) [address]19-2020 History of Past illness Narrative* Problem Noted Date Diagnosed Date Resolved Date Sepsis 03/09/2020 03/13/2020 Obesity, Class II, BMI 35-39.9 12/06/2019 05/08/2020 documented as of this encounter (statuses as of 06/23/2023) [facility]2020 History of Past illness Narrative* Problem Noted Date Diagnosed Date Resolved Date Sepsis 03/09/2020 03/13/2020 Obesity, Class II, BMI 35-39.9 12/06/2019 05/08/2020 documented as of this encounter (statuses as of 07/05/2023) [address]19-2020 History of Past illness Narrative* Problem Noted Date Diagnosed Date Resolved Date Sepsis 03/09/2020 03/13/2020 Obesity, Class II, BMI 35-39.9 12/06/2019 05/08/2020 documented as of this encounter (statuses as of 07/05/2023) [address]19-2020 History of Past illness Narrative* Problem Noted Date Diagnosed Date Resolved Date Sepsis 03/09/2020 03/13/2020 Obesity, Class II, BMI 35-39.9 12/06/2019 05/08/2020 documented as of this encounter (statuses as of 07/07/2023) [address]19-2020 History of Past illness Narrative* Problem Noted Date Diagnosed Date Resolved Date Sepsis 03/09/2020 03/13/2020 Obesity, Class II, BMI 35-39.9 12/06/2019 05/08/2020 documented as of this encounter (statuses as of 07/13/2023) [address]19-2020 History of Past illness Narrative* Problem Noted Date Diagnosed Date Resolved Date Sepsis 03/09/2020 03/13/2020 Obesity, Class II, BMI 35-39.9 12/06/2019 05/08/2020 documented as of this encounter (statuses as of 07/19/2023) [address]19-2020 History of Past illness Narrative* Problem Noted Date Diagnosed Date Resolved Date Sepsis 03/09/2020 03/13/2020 Obesity, Class II, BMI 35-39.9 12/06/2019 05/08/2020 documented as of this encounter (statuses as of 07/20/2023) [address]19-2020 History of Past illness Narrative* Problem Noted Date Diagnosed Date Resolved Date Sepsis 03/09/2020 03/13/2020 Obesity, Class II, BMI 35-39.9 12/06/2019 05/08/2020 documented as of this encounter (statuses as of 07/20/2023) [address]19-2020 History of Past illness Narrative* Problem Noted Date Diagnosed Date Resolved Date Sepsis 03/09/2020 03/13/2020 Obesity, Class II, BMI 35-39.9 12/06/2019 05/08/2020 documented as of this encounter (statuses as of 07/21/2023) [address]19-2020 History of Past illness Narrative* Problem Noted Date Diagnosed Date Resolved Date Sepsis 03/09/2020 03/13/2020 Obesity, Class II, BMI 35-39.9 12/06/2019 05/08/2020 documented as of this encounter (statuses as of 07/26/2023) [address]19-2020 History of Past illness Narrative* Problem Noted Date Diagnosed Date Resolved Date Sepsis 03/09/2020 03/13/2020 Obesity, Class II, BMI 35-39.9 12/06/2019 05/08/2020 documented as of this encounter (statuses as of 08/02/2023) [address]19-2020 History of Past illness Narrative* Problem Noted Date Diagnosed Date Resolved Date Sepsis 03/09/2020 03/13/2020 Obesity, Class II, BMI 35-39.9 12/06/2019 05/08/2020 documented as of this encounter (statuses as of 08/02/2023) [address]19-2020 History of Past illness Narrative* Problem Noted Date Diagnosed Date Resolved Date Sepsis 03/09/2020 03/13/2020 Obesity, Class II, BMI 35-39.9 12/06/2019 05/08/2020 documented as of this encounter (statuses as of 08/02/2023) [address]19-2020 History of Past illness Narrative* Problem Noted Date Diagnosed Date Resolved Date Sepsis 03/09/2020 03/13/2020 Obesity, Class II, BMI 35-39.9 12/06/2019 05/08/2020 documented as of this encounter (statuses as of 08/04/2023) [address]19-2020 History of Past illness Narrative* Problem Noted Date Diagnosed Date Resolved Date Sepsis 03/09/2020 03/13/2020 Obesity, Class II, BMI 35-39.9 12/06/2019 05/08/2020 documented as of this encounter (statuses as of 08/09/2023) [address]19-2020 History of Past illness Narrative* Problem Noted Date Diagnosed Date Resolved Date Sepsis 03/09/2020 03/13/2020 Obesity, Class II, BMI 35-39.9 12/06/2019 05/08/2020 documented as of this encounter (statuses as of 08/11/2023) [address]19-2020 History of Past illness Narrative* Problem Noted Date Diagnosed Date Resolved Date Sepsis 03/09/2020 03/13/2020 Obesity, Class II, BMI 35-39.9 12/06/2019 05/08/2020 documented as of this encounter (statuses as of 08/23/2023) [address]19-2020 History of Past illness Narrative* Problem Noted Date Diagnosed Date Resolved Date Sepsis 03/09/2020 03/13/2020 Obesity, Class II, BMI 35-39.9 12/06/2019 05/08/2020 documented as of this encounter (statuses as of 08/24/2023) [facility]2020 History of Past illness Narrative* Problem Noted Date Diagnosed Date Resolved Date Sepsis 03/09/2020 03/13/2020 Obesity, Class II, BMI 35-39.9 12/06/2019 05/08/2020 documented as of this encounter (statuses as of 08/25/2023) [facility] Diagnosis Adenocarcinoma of head of pancreas [...] [facility] assessment information [facility] Work Phone: Evaluation note* Diagnosis [...] complication, initial encounter [facility] Malignant neoplasm of head [...] of tobacco use, 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 to health 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 Long-term (current) use [...] head of pancreas [facility] Diagnosis Pre-op evaluation- Primary Preoperative examination, unspecified Infection in abdomen (HCC) Unspecified peritonitis Obstructive sleep apnea Obstructive sleep apnea (adult) (pediatric) Former smoker Personal history of tobacco use, 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 to health 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 Long-term (current) use [...] head of pancreas [facility] Diagnosis Pre-op evaluation- Primary Preoperative examination, unspecified Infection in abdomen (HCC) Unspecified peritonitis Obstructive sleep apnea Obstructive sleep apnea (adult) (pediatric) Former smoker Personal history of tobacco use, 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 to health 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 Long-term (current) use [...] head of pancreas documented in this encounter [facility] note* Diagnosis Pre-op evaluation- Primary Preoperative examination, unspecified Infection in abdomen (HCC) Unspecified peritonitis Obstructive sleep apnea Obstructive sleep apnea (adult) (pediatric) Former smoker Personal history of tobacco use, 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 to health long-term current use of anticoagulant Long-term (current) use [...] head of pancreas documented in this encounter [facility] note* Diagnosis Pre-op evaluation- Primary Preoperative examination, unspecified Infection in abdomen (HCC) Unspecified peritonitis Obstructive sleep apnea Obstructive sleep apnea (adult) (pediatric) Former smoker Personal history of tobacco use, 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 to health long-term current use of anticoagulant Long-term (current) use [...] head of pancreas documented in this encounter [facility] note* Diagnosis Pre-op evaluation- Primary Preoperative examination, unspecified Infection in abdomen (HCC) Unspecified peritonitis Obstructive sleep apnea Obstructive sleep apnea (adult) (pediatric) Former smoker Personal history of tobacco use, 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 to health long-term current use of anticoagulant Long-term (current) use [...] head of pancreas documented in this encounter [facility] note* Diagnosis Pre-op evaluation- Primary Preoperative examination, unspecified Infection in abdomen (HCC) Unspecified peritonitis Obstructive sleep apnea Obstructive sleep apnea (adult) (pediatric) Former smoker Personal history of tobacco use, 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 to health 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 Long-term (current) use [...] (HCC) Acute cough documented in this encounter [facility] note* Diagnosis Pre-op evaluation- Primary Preoperative examination, unspecified Infection in abdomen (HCC) Unspecified peritonitis Obstructive sleep apnea Obstructive sleep apnea (adult) (pediatric) Former smoker Personal history of tobacco use, 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 to health 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 Long-term (current) use [...] head of pancreas documented in this encounter [facility] note* Diagnosis Pre-op evaluation- Primary Preoperative examination, unspecified Infection in abdomen (HCC) Unspecified peritonitis Obstructive sleep apnea Obstructive sleep apnea (adult) (pediatric) Former smoker Personal history of tobacco use, 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 to health long-term current use of anticoagulant Long-term (current) use [...] of malignancy (HCC) documented in this encounter [facility] note* Diagnosis Pre-op evaluation- Primary Preoperative examination, unspecified Infection in abdomen (HCC) Unspecified peritonitis Obstructive sleep apnea Obstructive sleep apnea (adult) (pediatric) Former smoker Personal history of tobacco use, 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 to health long-term current use of anticoagulant Long-term (current) use [...] head of pancreas documented in this encounter [facility] note* Diagnosis Pre-op evaluation- Primary Preoperative examination, unspecified Infection in abdomen (HCC) Unspecified peritonitis Obstructive sleep apnea Obstructive sleep apnea (adult) (pediatric) Former smoker Personal history of tobacco use, 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 to health 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 Long-term (current) use [...] head of pancreas documented in this encounter [facility] note* Diagnosis Pre-op evaluation- Primary Preoperative examination, unspecified Infection in abdomen (HCC) Unspecified peritonitis Obstructive sleep apnea Obstructive sleep apnea (adult) (pediatric) Former smoker Personal history of tobacco use, 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 to health 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 Long-term (current) use [...] head of pancreas documented in this encounter [facility] note* Diagnosis Pre-op evaluation- Primary Preoperative examination, unspecified Infection in abdomen (HCC) Unspecified peritonitis Obstructive sleep apnea Obstructive sleep apnea (adult) (pediatric) Former smoker Personal history of tobacco use, 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 to health 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 Long-term (current) use [...] head of pancreas documented in this encounter [facility] note* Diagnosis Pre-op evaluation- Primary Preoperative examination, unspecified Infection in abdomen (HCC) Unspecified peritonitis Obstructive sleep apnea Obstructive sleep apnea (adult) (pediatric) Former smoker Personal history of tobacco use, 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 to health long-term current use of anticoagulant Long-term (current) use [...] head of pancreas documented in this encounter [facility] note* Diagnosis Pre-op evaluation- Primary Preoperative examination, unspecified Infection in abdomen (HCC) Unspecified peritonitis Obstructive sleep apnea Obstructive sleep apnea (adult) (pediatric) Former smoker Personal history of tobacco use, 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 to health 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 Long-term (current) use [...] head of pancreas documented in this encounter [facility] note* Diagnosis Pre-op evaluation- Primary Preoperative examination, unspecified Infection in abdomen (HCC) Unspecified peritonitis Obstructive sleep apnea Obstructive sleep apnea (adult) (pediatric) Former smoker Personal history of tobacco use, 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 to health long-term current use of anticoagulant Long-term (current) use [...] head of pancreas documented in this encounter [facility] note* Diagnosis Pre-op evaluation- Primary Preoperative examination, unspecified Infection in abdomen (HCC) Unspecified peritonitis Obstructive sleep apnea Obstructive sleep apnea (adult) (pediatric) Former smoker Personal history of tobacco use, 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 to health 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 Long-term (current) use [...] of pancreas (HCC) documented in this encounter [facility] note* Diagnosis Pre-op evaluation- Primary Preoperative examination, unspecified Infection in abdomen (HCC) Unspecified peritonitis Obstructive sleep apnea Obstructive sleep apnea (adult) (pediatric) Former smoker Personal history of tobacco use, 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 to health 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 Long-term (current) use [...] head of pancreas documented in this encounter [facility] note* Diagnosis Pre-op evaluation- Primary Preoperative examination, unspecified Infection in abdomen (HCC) Unspecified peritonitis Obstructive sleep apnea Obstructive sleep apnea (adult) (pediatric) Former smoker Personal history of tobacco use, 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 to health long-term current use of anticoagulant Long-term (current) use [...] head of pancreas documented [facility] Diagnosis Pre-op evaluation- Primary Preoperative examination, unspecified Infection in abdomen (HCC) Unspecified peritonitis Obstructive sleep apnea Obstructive sleep apnea (adult) (pediatric) Former smoker Personal history of tobacco use, 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 to health 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 Long-term (current) use [...] of pancreas Central line complication, initial encounter Neuropathy Mononeuritis of unspecified site Type 2 diabetes mellitus without complication, with long-term current use of insulin (HCC) documented in [facility] Diagnosis Pre-op evaluation- Primary Preoperative examination, unspecified Infection in abdomen (HCC) Unspecified peritonitis Obstructive sleep apnea Obstructive sleep apnea (adult) (pediatric) Former smoker Personal history of tobacco use, 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 to health long-term current use of anticoagulant Long-term (current) use [...] head of pancreas documented in this encounter [facility] note* Diagnosis Pre-op evaluation- Primary Preoperative examination, unspecified Infection in abdomen (HCC) Unspecified peritonitis Obstructive sleep apnea Obstructive sleep apnea (adult) (pediatric) Former smoker Personal history of tobacco use, 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 to health long-term current use of anticoagulant Long-term (current) use [...] head of pancreas documented in this encounter [facility] note* Diagnosis Pneumonia of left lower lobe due to infectious organism- Primary Pancreatic adenocarcinoma (CMS/HCC) Malignant neoplasm of pancreas, part unspecified Immunosuppressed status (CMS/HCC) documented in this encounter [facility] for referral (narrative)* Outpatient Procedure (Urgent) - Pending Review Specialty Diagnoses / Procedures Referred By Contbelem t Referred To [facility] Diagnoses Leg swelling Procedures US LEG VEIN DVT SADIE [facility] LAB DUP-SCAN XTR VEINS COMPLETE BILATERAL STUDY Greta Wetzel PA-C [address] [place] [address] [place] [address] [facility] [address] [place] [address] Referral ID Status Reason Start Date Expiration Date Visits Requested Visits Authorized [id number] Pending Review Auto-Generat ed Referral 10/03/2023 10/02/2024 1 1 [facility] Diagnostic Procedure Only (Routine) - Pending Review Specialty Diagnoses / Procedures Referred By Contac t Referred To Contact XR IMAGING Diagnoses Malignant neoplasm of head of pancreas (HCC) Central line complication, initial encounter Procedures XR CHEST 1V FRONTAL PORT RADIOLOGIC EXAM CHEST SINGLE VIEW Greta Wetzel PA-C [address] [place] [address] [place] [address] [place] [address] Referral ID Status Reason Start Date Expiration Date Visits Requested Visits Authorized [id number] Pending Review Auto-Generat ed Referral 11/22/2023 12/21/2024 1 1 [facility] Summary Purpose Family History No Family History Records Found Relationship Condition Age at Onset Recorded Date/T abdoul Not Specified No pertinent family history Unknown Advance Directives No Advanced Directives Records FoundDocuments on File Type Date Recorded 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 Antineoplastic [...] 1 dose, On Mon03/08/23 at 1430, EXP: 62903/10/23 Hazardous Chemotherapy Drug: Use appropriate PPE. Antineoplastic [...] 1 dose, On Mon04/05/23 at 1500, EXP: 64404/08/23 Hazardous Chemotherapy Drug: Use appropriate PPE. Antineoplastic [...] ONCE, 1 dose, On Mon05/05/23 at 1400, EXP:05/06/23 2000 RT Hazardous Chemotherapy Drug: Use appropriate PPE. Antineoplastic Irritant. New Bag/Syringe/Bottle 05/05/2023 2:16 PM EST 1,930 mg ondansetron (PF) 8 mg injection (ZOFRAN) 8 mg, INTRAVENOUS, ONCE, 1 dose, On Mon05/05/23 at 1400 Given 05/05/2023 1:57 PM EST 8 mg Reason for Referral Specialty Diagnoses / Procedures Referred By Riaz t Referred To Contact CT IMAGING Diagnoses Malignant neoplasm of head of pancreas (HCC) Procedures CT CHEST W IVCON DIAGNOSTIC COMPUTED TOMOGRAPHY THORAX W/CONTRAST Grace Bess MD [address] [place] [address] Imaging Referral ID Status Reason Start Date Expiration Date Visits Requested Visits Authorized [id number] Authorized Auto-Generat ed Referral 2 03/24/2023 1 1 Specialty Diagnoses / Procedures Referred By Contbelem t Referred To Contact Diagnoses Malignant neoplasm of head of pancreas (HCC) Procedures CONSULT TO MEDICAL GENETICS - CANCER MEDICAL GENETICS COUNSELING EACH 30 MINUTES Grace Bess MD [address] [place] [id number] [facility] [facility] Trilla [address] [place] [address] Referral ID Status Reason Start Date Expiration Date Visits Requested Visits Authorized [id number] Pending Review PCP Requested Referral Auto-Generate d Referral 10/02/22/2023 1 1 Specialty Diagnoses / Procedures Referred By Contac t Referred To Contact CT IMAGING Diagnoses Malignant neoplasm of head of pancreas (HCC) Procedures CT ABD/PEL W IVCON CT ABD & PELVIS W/CONTRAST Grace Bess MD [address] [place] [address] [place] [address] Ct Imaging Referral ID Status Reason Start Date Expiration Date Visits Requested Visits Authorized [id number] Authorized Auto-Generat ed Referral 06/01/2022 06/10/2023 1 1 Referral ID Status Reason Start Date Expiration Date Visits Requested Visits Authorized [id number] Authorized Auto-Generat ed Referral 06/01/2022 06/10/2023 1 1 Referral ID Status Reason Start Date Expiration Date Visits Requested Visits Authorized [id number] Pending Review Auto-Generat ed Referral 08/03/2022 07/29/2023 1 1 Referral ID Status Reason Start Date Expiration Date Visits Requested Visits Authorized [id number] Pending Review Auto-Generat ed Referral 08/03/2022 07/29/2023 1 1 Referral ID Status Reason Start Date Expiration Date Visits Requested Visits Authorized [id number] Authorized Auto-Generat ed Referral 11/10/2022 10/29/2023 1 1 Referral ID Status Reason Start Date Expiration Date Visits Requested Visits Authorized [id number] Authorized Auto-Generat ed Referral 11/10/2022 10/29/2023 1 1 Specialty Diagnoses / Procedures Referred By Contac t Referred To Contact Endocrinology Diagnoses Malignant neoplasm of head of pancreas (HCC) Type 2 diabetes mellitus without complication, with long-term current use of insulin (HCC) Procedures CONSULT TO ENDOCRINOLOGY OFFICE[facility] 60-74 MINUTES Greta Wetzel PA-C [address] [place] [address] Referral ID Status Reason Start Date Expiration Date Visits Requested Visits Authorized [id number] Authorized PCP Requested Referral 11/23/2022 11/23/2023 1 [...] TOMOGRAPHY THORAX W/CONTRAST Greta Wetzel PA-C [address] [place] [address] Imaging Referral ID Status Reason Start Date Expiration Date Visits Requested Visits Authorized [id number] Pending Review Auto-Generat ed Referral 12/21/2022 01/20/2024 1 1 Specialty Diagnoses / Procedures Referred By Contac t Referred To Contact CT IMAGING Diagnoses Malignant neoplasm of head of pancreas (HCC) Procedures CT ABD/PEL W IVCON CT ABD & PELVIS W/CONTRAST Grace Bess MD [address] [place] [address] [address] [place] [address] Referral ID Status Reason Start Date Expiration Date Visits Requested Visits Authorized [id number] Authorized Auto-Generat ed Referral 05/26/2023 06/03/2024 1 1 Specialty Diagnoses / Procedures Referred By Contac t Referred To Contact CT IMAGING Diagnoses Malignant neoplasm of head of pancreas (HCC) Procedures CT CHEST W IVCON DIAGNOSTIC COMPUTED TOMOGRAPHY THORAX W/CONTRAST Grace Bess MD [address] [place] [address] [address] [place] [address] Referral ID Status Reason Start Date Expiration Date Visits Requested Visits Authorized [id number] Authorized Auto-Generat ed Referral 05/26/2023 06/03/2024 1 1 Referral ID Status Reason Start Date Expiration Date Visits Requested Visits Authorized [id number] Authorized Auto-Generat ed Referral 08/16/2023 08/31/2024 1 1 Referral ID Status Reason Start Date Expiration Date Visits Requested Visits Authorized [id number] Authorized Auto-Generat ed Referral 08/16/2023 08/31/2024 1 1 Referral ID Status Reason Start Date Expiration Date Visits Requested Visits Authorized [id number] Authorized Auto-Generat ed Referral 11/21/2023 11/29/2024 1 1 Referral ID Status Reason Start Date Expiration Date Visits Requested Visits Authorized [id number] Authorized Auto-Generat ed Referral 11/21/2023 11/29/2024 1 1 Referral ID Status Reason Start Date Expiration Date V isits Requested Visits Authorized [id number] Closed Auto-Generate d Referral 11/21/2023 11/29/2024 1 1 Referral ID Status Reason Start Date Expiration Date V isits Requested Visits Authorized [id number] Closed Auto-Generate d Referral 11/21/2023 11/29/2024 1 1 Referral ID Status Reason Start Date Expiration Date V isits Requested Visits Authorized [id number] Closed Auto-Generate d Referral 08/16/2023 08/31/2024 1 1 Referral ID Status Reason Start Date Expiration Date V isits Requested Visits Authorized [id number] Closed Auto-Generate d Referral 08/16/2023 08/31/2024 1 1 Referral ID Status Reason Start Date Expiration Date V isits Requested Visits Authorized [id number] Closed Auto-Generate d Referral 05/26/2023 06/03/2024 1 1 Referral ID Status Reason Start Date Expiration Date V isits Requested Visits Authorized [id number] Closed Auto-Generate d Referral 05/26/2023 06/03/2024 1 1 Referral ID Status Reason Start Date Expiration Date V isits Requested Visits Authorized [id number] Closed Auto-Generate d Referral 11/10/2022 10/29/2023 1 1 Referral ID Status Reason Start Date Expiration Date V isits Requested Visits Authorized [id number] Closed Auto-Generate d Referral 11/10/2022 10/29/2023 1 1 Referral ID Status Reason Start Date Expiration Date V isits Requested Visits Authorized [id number] Closed Auto-Generate d Referral 07/25/2022 07/29/2023 1 1 Referral ID Status Reason Start Date Expiration Date V isits Requested Visits Authorized [id number] Closed Auto-Generate d Referral 07/25/2022 07/29/2023 1 1 Referral ID Status Reason Start Date Expiration Date V isits Requested Visits Authorized [id number] Closed Auto-Generate d Referral 06/01/2022 06/10/2023 1 1 Referral ID Status Reason Start Date Expiration Date V isits Requested Visits Authorized [id number] Closed Auto-Generate d Referral 06/01/2022 06/10/2023 1 1 Referral ID Status Reason Start Date Expiration Date V isits Requested Visits Authorized [id number] Closed Auto-Generate d Referral 03/01/2022 03/24/2023 1 1 Specialty Diagnoses / Procedures Referred By Contac t Referred To Contact CT IMAGING Diagnoses Other chronic pancreatitis (HCC) Procedures CT PANCREAS W IVCON [place] ABDOMEN W/[place] [address] [address] [facility] [id number] Imaging [place] [address] Referral ID Status Reason Start Date Expiration Date V isits Requested Visits Authorized [id number] Closed Auto-Generate d Referral 07/21/2021 08/14/2022 1 1 Specialty Diagnoses / Procedures Referred By Contac t Referred To Contact CT IMAGING Diagnoses Malignant neoplasm of head of pancreas (HCC) Procedures CT CHEST W IVCON DIAGNOSTIC COMPUTED TOMOGRAPHY THORAX W/CONTRAST Vivek Smith MD [address] [facility] [place] [address] Ct Imaging [place] [address] Referral ID Status Reason Start Date Expiration Date Visits Requested Visits Authorized [id number] Authorized Auto-Generat ed Referral 4 05/04/2025 1 1 Specialty Diagnoses / Procedures Referred By Contac t Referred To Contact CT IMAGING Diagnoses Malignant neoplasm of head of pancreas (HCC) Procedures CT ABD/PEL W IVCON CT ABD & PELVIS W/CONTRAST Vivek Smith MD [address] [facility] [place] [address] Ct Imaging [place] [address] Referral ID Status Reason Start Date Expiration Date Visits Requested Visits Authorized [id number] Authorized Auto-Generat ed Referral 4 05/04/2025 1 1 Chief Complaint and Reason for Visit Chief Complaint fall Additional Source Comments (unrecognized sect ion and content) No Status Records FoundNo Status Records FoundNo Status Records FoundNo Status Records FoundNo Status Records FoundNo Status Records FoundNo Status Records FoundNo Status Records FoundNo Status Records FoundNo Status Records Found INFORMATION SOURCE (unrecogn ized section and content) DATE CREATED AUTHOR 12/12/2019 [facility] DATE CREATED AUTHOR AUTHOR'S ORGANIZ ATION 04/16/2020 [facility] DATE CREATED AUTHOR AUTHOR'S ORGANIZ ATION 02/19/2021 [facility] DATE CREATED AUTHOR AUTHOR'S ORGANIZ ATION 06/24/2021 [facility] DATE CREATED AUTHOR AUTHOR'S ORGANIZ ATION 09/27/2021 [facility] DATE CREATED AUTHOR AUTHOR'S ORGANIZ ATION 04/14/2022 [facility] DATE CREATED AUTHOR AUTHOR'S ORGANIZ ATION 11/11/2023 [facility] DATE CREATED AUTHOR AUTHOR'S ORGANIZ ATION 01/03/2024 [facility] DATE CREATED AUTHOR AUTHOR'S ORGANIZ ATION 04/03/2024 [facility] DATE CREATED AUTHOR AUTHOR'S ORGANIZ ATION 04/09/2024 [facility] Source Comments (unrecognize d section and content) In the event this informatio n is protected by the Federal Confidentiality of Alcohol and Drug Abuse Patient Records regulations: The Federal rules restrict any use of the information to criminally investigate or prosecute any alcohol or drug abuse patient.[facility] Center[facility] the event this information is protected by the Federal Confidentiality of Alcohol and Drug Abuse Patient Records regulations: The Federal rules restrict any use of the information to criminally investigate or prosecute any alcohol or drug abuse patient.[facility] CenterIn the event this information is protected by the Federal Confidentiality of Alcohol and Drug Abuse Patient Records regulations: The Federal rules restrict any use of the information to criminally investigate or prosecute any alcohol or drug abuse patient.[facility] CenterIn the event this information is protected by the Federal Confidentiality of Alcohol and Drug Abuse Patient Records regulations: The Federal rules restrict any use of the information to criminally investigate or prosecute any alcohol or drug abuse patient.[facility] Center[facility] the event this information is protected by the Federal Confidentiality of Alcohol and Drug Abuse Patient Records regulations: The Federal rules restrict any use of the information to criminally investigate or prosecute any alcohol or drug abuse patient.[facility] CenterIn the event this information is protected by the Federal Confidentiality of Alcohol and Drug Abuse Patient Records regulations: The Federal rules restrict any use of the information to criminally investigate or prosecute any alcohol or drug abuse patient.[facility] CenterIn the event this information is protected by the Federal Confidentiality of Alcohol and Drug Abuse Patient Records regulations: The Federal rules restrict any use of the information to criminally investigate or prosecute any alcohol or drug abuse patient.[facility] CenterIn the event this information is protected by the Federal Confidentiality of Alcohol and Drug Abuse Patient Records regulations: The Federal rules restrict any use of the information to criminally investigate or prosecute any alcohol or drug abuse patient.[facility] CenterIn the event this information is protected by the Federal Confidentiality of Alcohol and Drug Abuse Patient Records regulations: The Federal rules restrict any use of the information to criminally investigate or prosecute any alcohol or drug abuse patient.[facility] CenterIn the event this information is protected by the Federal Confidentiality of Alcohol and Drug Abuse Patient Records regulations: The Federal rules restrict any use of the information to criminally investigate or prosecute any alcohol or drug abuse patient.[facility] CenterIn the event this information is protected by the Federal Confidentiality of Alcohol and Drug Abuse Patient Records regulations: The Federal rules restrict any use of the information to criminally investigate or prosecute any alcohol or drug abuse patient.[facility] CenterIn the event this information is protected by the Federal Confidentiality of Alcohol and Drug Abuse Patient Records regulations: The Federal rules restrict any use of the information to criminally investigate or prosecute any alcohol or drug abuse patient.[facility] CenterIn the event this information is protected by the Federal Confidentiality of Alcohol and Drug Abuse Patient Records regulations: The Federal rules restrict any use of the information to criminally investigate or prosecute any alcohol or drug abuse patient.[facility] CenterIn the event this information is protected by the Federal Confidentiality of Alcohol and Drug Abuse Patient Records regulations: The Federal rules restrict any use of the information to criminally investigate or prosecute any alcohol or drug abuse patient.[facility] CenterIn the event this information is protected by the Federal Confidentiality of Alcohol and Drug Abuse Patient Records regulations: The Federal rules restrict any use of the information to criminally investigate or prosecute any alcohol or drug abuse patient.[facility] CenterIn the event this information is protected by the Federal Confidentiality of Alcohol and Drug Abuse Patient Records regulations: The Federal rules restrict any use of the information to criminally investigate or prosecute any alcohol or drug abuse patient.[facility] CenterIn the event this information is protected by the Federal Confidentiality of Alcohol and Drug Abuse Patient Records regulations: The Federal rules restrict any use of the information to criminally investigate or prosecute any alcohol or drug abuse patient.[facility] CenterIn the event this information is protected by the Federal Confidentiality of Alcohol and Drug Abuse Patient Records regulations: The Federal rules restrict any use of the information to criminally investigate or prosecute any alcohol or drug abuse patient.[facility] CenterIn the event this information is protected by the Federal Confidentiality of Alcohol and Drug Abuse Patient Records regulations: The Federal rules restrict any use of the information to criminally investigate or prosecute any alcohol or drug abuse patient.[facility] CenterIn the event this information is protected by the Federal Confidentiality of Alcohol and Drug Abuse Patient Records regulations: The Federal rules restrict any use of the information to criminally investigate or prosecute any alcohol or drug abuse patient.[facility] CenterIn the event this information is protected by the Federal Confidentiality of Alcohol and Drug Abuse Patient Records regulations: The Federal rules restrict any use of the information to criminally investigate or prosecute any alcohol or drug abuse patient.[facility] CenterIn the event this information is protected by the Federal Confidentiality of Alcohol and Drug Abuse Patient Records regulations: The Federal rules restrict any use of the information to criminally investigate or prosecute any alcohol or drug abuse patient.[facility] CenterIn the event this information is protected by the Federal Confidentiality of Alcohol and Drug Abuse Patient Records regulations: The Federal rules restrict any use of the information to criminally investigate or prosecute any alcohol or drug abuse patient.[facility] CenterIn the event this information is protected by the Federal Confidentiality of Alcohol and Drug Abuse Patient Records regulations: The Federal rules restrict any use of the information to criminally investigate or prosecute any alcohol or drug abuse patient.[facility] CenterIn the event this information is protected by the Federal Confidentiality of Alcohol and Drug Abuse Patient Records regulations: The Federal rules restrict any use of the information to criminally investigate or prosecute any alcohol or drug abuse patient.[facility] CenterIn the event this information is protected by the Federal Confidentiality of Alcohol and Drug Abuse Patient Records regulations: The Federal rules restrict any use of the information to criminally investigate or prosecute any alcohol or drug abuse patient.[facility] CenterIn the event this information is protected by the Federal Confidentiality of Alcohol and Drug Abuse Patient Records regulations: The Federal rules restrict any use of the information to criminally investigate or prosecute any alcohol or drug abuse patient.[facility] CenterIn the event this information is protected by the Federal Confidentiality of Alcohol and Drug Abuse Patient Records regulations: The Federal rules restrict any use of the information to criminally investigate or prosecute any alcohol or drug abuse patient.[facility] CenterIn the event this information is protected by the Federal Confidentiality of Alcohol and Drug Abuse Patient Records regulations: The Federal rules restrict any use of the information to criminally investigate or prosecute any alcohol or drug abuse patient.[facility] CenterIn the event this information is protected by the Federal Confidentiality of Alcohol and Drug Abuse Patient Records regulations: The Federal rules restrict any use of the information to criminally investigate or prosecute any alcohol or drug abuse patient.[facility] CenterIn the event this information is protected by the Federal Confidentiality of Alcohol and Drug Abuse Patient Records regulations: The Federal rules restrict any use of the information to criminally investigate or prosecute any alcohol or drug abuse patient.[facility] CenterIn the event this information is protected by the Federal Confidentiality of Alcohol and Drug Abuse Patient Records regulations: The Federal rules restrict any use of the information to criminally investigate or prosecute any alcohol or drug abuse patient.[facility] CenterIn the event this information is protected by the Federal Confidentiality of Alcohol and Drug Abuse Patient Records regulations: The Federal rules restrict any use of the information to criminally investigate or prosecute any alcohol or drug abuse patient.[facility] CenterIn the event this information is protected by the Federal Confidentiality of Alcohol and Drug Abuse Patient Records regulations: The Federal rules restrict any use of the information to criminally investigate or prosecute any alcohol or drug abuse patient.[facility] CenterIn the event this information is protected by the Federal Confidentiality of Alcohol and Drug Abuse Patient Records regulations: The Federal rules restrict any use of the information to criminally investigate or prosecute any alcohol or drug abuse patient.[facility] CenterIn the event this information is protected by the Federal Confidentiality of Alcohol and Drug Abuse Patient Records regulations: The Federal rules restrict any use of the information to criminally investigate or prosecute any alcohol or drug abuse patient.[facility] CenterIn the event this information is protected by the Federal Confidentiality of Alcohol and Drug Abuse Patient Records regulations: The Federal rules restrict any use of the information to criminally investigate or prosecute any alcohol or drug abuse patient.[facility] CenterIn the event this information is protected by the Federal Confidentiality of Alcohol and Drug Abuse Patient Records regulations: The Federal rules restrict any use of the information to criminally investigate or prosecute any alcohol or drug abuse patient.[facility] CenterIn the event this information is protected by the Federal Confidentiality of Alcohol and Drug Abuse Patient Records regulations: The Federal rules restrict any use of the information to criminally investigate or prosecute any alcohol or drug abuse patient.[facility] CenterIn the event this information is protected by the Federal Confidentiality of Alcohol and Drug Abuse Patient Records regulations: The Federal rules restrict any use of the information to criminally investigate or prosecute any alcohol or drug abuse patient.[facility] CenterIn the event this information is protected by the Federal Confidentiality of Alcohol and Drug Abuse Patient Records regulations: The Federal rules restrict any use of the information to criminally investigate or prosecute any alcohol or drug abuse patient.[facility] CenterIn the event this information is protected by the Federal Confidentiality of Alcohol and Drug Abuse Patient Records regulations: The Federal rules restrict any use of the information to criminally investigate or prosecute any alcohol or drug abuse patient.[facility] CenterIn the event this information is protected by the Federal Confidentiality of Alcohol and Drug Abuse Patient Records regulations: The Federal rules restrict any use of the information to criminally investigate or prosecute any alcohol or drug abuse patient.[facility] CenterIn the event this information is protected by the Federal Confidentiality of Alcohol and Drug Abuse Patient Records regulations: The Federal rules restrict any use of the information to criminally investigate or prosecute any alcohol or drug abuse patient.[facility] CenterIn the event this information is protected by the Federal Confidentiality of Alcohol and Drug Abuse Patient Records regulations: The Federal rules restrict any use of the information to criminally investigate or prosecute any alcohol or drug abuse patient.[facility] CenterIn the event this information is protected by the Federal Confidentiality of Alcohol and Drug Abuse Patient Records regulations: The Federal rules restrict any use of the information to criminally investigate or prosecute any alcohol or drug abuse patient.[facility] CenterIn the event this information is protected by the Federal Confidentiality of Alcohol and Drug Abuse Patient Records regulations: The Federal rules restrict any use of the information to criminally investigate or prosecute any alcohol or drug abuse patient.[facility] CenterIn the event this information is protected by the Federal Confidentiality of Alcohol and Drug Abuse Patient Records regulations: The Federal rules restrict any use of the information to criminally investigate or prosecute any alcohol or drug abuse patient.[facility] CenterIn the event this information is protected by the Federal Confidentiality of Alcohol and Drug Abuse Patient Records regulations: The Federal rules restrict any use of the information to criminally investigate or prosecute any alcohol or drug abuse patient.[facility] CenterIn the event this information is protected by the Federal Confidentiality of Alcohol and Drug Abuse Patient Records regulations: The Federal rules restrict any use of the information to criminally investigate or prosecute any alcohol or drug abuse patient.[facility] CenterIn the event this information is protected by the Federal Confidentiality of Alcohol and Drug Abuse Patient Records regulations: The Federal rules restrict any use of the information to criminally investigate or prosecute any alcohol or drug abuse patient.[facility] CenterIn the event this information is protected by the Federal Confidentiality of Alcohol and Drug Abuse Patient Records regulations: The Federal rules restrict any use of the information to criminally investigate or prosecute any alcohol or drug abuse patient.[facility] CenterIn the event this information is protected by the Federal Confidentiality of Alcohol and Drug Abuse Patient Records regulations: The Federal rules restrict any use of the information to criminally investigate or prosecute any alcohol or drug abuse patient.[facility] CenterIn the event this information is protected by the Federal Confidentiality of Alcohol and Drug Abuse Patient Records regulations: The Federal rules restrict any use of the information to criminally investigate or prosecute any alcohol or drug abuse patient.[facility] CenterIn the event this information is protected by the Federal Confidentiality of Alcohol and Drug Abuse Patient Records regulations: The Federal rules restrict any use of the information to criminally investigate or prosecute any alcohol or drug abuse patient.[facility] CenterIn the event this information is protected by the Federal Confidentiality of Alcohol and Drug Abuse Patient Records regulations: The Federal rules restrict any use of the information to criminally investigate or prosecute any alcohol or drug abuse patient.[facility] CenterIn the event this information is protected by the Federal Confidentiality of Alcohol and Drug Abuse Patient Records regulations: The Federal rules restrict any use of the information to criminally investigate or prosecute any alcohol or drug abuse patient.[facility] CenterIn the event this information is protected by the Federal Confidentiality of Alcohol and Drug Abuse Patient Records regulations: The Federal rules restrict any use of the information to criminally investigate or prosecute any alcohol or drug abuse patient.[facility] CenterIn the event this information is protected by the Federal Confidentiality of Alcohol and Drug Abuse Patient Records regulations: The Federal rules restrict any use of the information to criminally investigate or prosecute any alcohol or drug abuse patient.[facility] CenterIn the event this information is protected by the Federal Confidentiality of Alcohol and Drug Abuse Patient Records regulations: The Federal rules restrict any use of the information to criminally investigate or prosecute any alcohol or drug abuse patient.[facility] CenterIn the event this information is protected by the Federal Confidentiality of Alcohol and Drug Abuse Patient Records regulations: The Federal rules restrict any use of the information to criminally investigate or prosecute any alcohol or drug abuse patient.[facility] CenterIn the event this information is protected by the Federal Confidentiality of Alcohol and Drug Abuse Patient Records regulations: The Federal rules restrict any use of the information to criminally investigate or prosecute any alcohol or drug abuse patient.[facility] CenterIn the event this information is protected by the Federal Confidentiality of Alcohol and Drug Abuse Patient Records regulations: The Federal rules restrict any use of the information to criminally investigate or prosecute any alcohol or drug abuse patient.[facility]In the event this information is protected by the Federal Confidentiality of Alcohol and Drug Abuse Patient Records regulations: The Federal rules restrict any use of the information to criminally investigate or prosecute any alcohol or drug abuse patient.[facility] CenterIn the event this information is protected by the Federal Confidentiality of Alcohol and Drug Abuse Patient Records regulations: The Federal rules restrict any use of the information to criminally investigate or prosecute any alcohol or drug abuse patient.[facility] CenterIn the event this information is protected by the Federal Confidentiality of Alcohol and Drug Abuse Patient Records regulations: The Federal rules restrict any use of the information to criminally investigate or prosecute any alcohol or drug abuse patient.[facility]In the event this information is protected by the Federal Confidentiality of Alcohol and Drug Abuse Patient Records regulations: The Federal rules restrict any use of the information to criminally investigate or prosecute any alcohol or drug abuse patient.[facility]In the event this information is protected by the Federal Confidentiality of Alcohol and Drug Abuse Patient Records regulations: The Federal rules restrict any use of the information to criminally investigate or prosecute any alcohol or drug abuse patient.[facility]In the event this information is protected by the Federal Confidentiality of Alcohol and Drug Abuse Patient Records regulations: The Federal rules restrict any use of the information to criminally investigate or prosecute any alcohol or drug abuse patient.[facility]In the event this information is protected by the Federal Confidentiality of Alcohol and Drug Abuse Patient Records regulations: The Federal rules restrict any use of the information to criminally investigate or prosecute any alcohol or drug abuse patient.[facility]In the event this information is protected by the Federal Confidentiality of Alcohol and Drug Abuse Patient Records regulations: The Federal rules restrict any use of the information to criminally investigate or prosecute any alcohol or drug abuse patient.[facility]In the event this information is protected by the Federal Confidentiality of Alcohol and Drug Abuse Patient Records regulations: The Federal rules restrict any use of the information to criminally investigate or prosecute any alcohol or drug abuse patient.[facility] CenterIn the event this information is protected by the Federal Confidentiality of Alcohol and Drug Abuse Patient Records regulations: The Federal rules restrict any use of the information to criminally investigate or prosecute any alcohol or drug abuse patient.[facility] CenterIn the event this information is protected by the Federal Confidentiality of Alcohol and Drug Abuse Patient Records regulations: The Federal rules restrict any use of the information to criminally investigate or prosecute any alcohol or drug abuse patient.[facility]In the event this information is protected by the Federal Confidentiality of Alcohol and Drug Abuse Patient Records regulations: The Federal rules restrict any use of the information to criminally investigate or prosecute any alcohol or drug abuse patient.[facility] CenterIn the event this information is protected by the Federal Confidentiality of Alcohol and Drug Abuse Patient Records regulations: The Federal rules restrict any use of the information to criminally investigate or prosecute any alcohol or drug abuse patient.[facility]In the event this information is protected by the Federal Confidentiality of Alcohol and Drug Abuse Patient Records regulations: The Federal rules restrict any use of the information to criminally investigate or prosecute any alcohol or drug abuse patient.[facility] CenterIn the event this information is protected by the Federal Confidentiality of Alcohol and Drug Abuse Patient Records regulations: The Federal rules restrict any use of the information to criminally investigate or prosecute any alcohol or drug abuse patient.[facility] CenterIn the event this information is protected by the Federal Confidentiality of Alcohol and Drug Abuse Patient Records regulations: The Federal rules restrict any use of the information to criminally investigate or prosecute any alcohol or drug abuse patient.[facility]In the event this information is protected by the Federal Confidentiality of Alcohol and Drug Abuse Patient Records regulations: The Federal rules restrict any use of the information to criminally investigate or prosecute any alcohol or drug abuse patient.[facility]In the event this information is protected by the Federal Confidentiality of Alcohol and Drug Abuse Patient Records regulations: The Federal rules restrict any use of the information to criminally investigate or prosecute any alcohol or drug abuse patient.[facility]In the event this information is protected by the Federal Confidentiality of Alcohol and Drug Abuse Patient Records regulations: The Federal rules restrict any use of the information to criminally investigate or prosecute any alcohol or drug abuse patient.[facility]In the event this information is protected by the Federal Confidentiality of Alcohol and Drug Abuse Patient Records regulations: The Federal rules restrict any use of the information to criminally investigate or prosecute any alcohol or drug abuse patient.[facility]In the event this information is protected by the Federal Confidentiality of Alcohol and Drug Abuse Patient Records regulations: The Federal rules restrict any use of the information to criminally investigate or prosecute any alcohol or drug abuse patient.[facility]In the event this information is protected by the Federal Confidentiality of Alcohol and Drug Abuse Patient Records regulations: The Federal rules restrict any use of the information to criminally investigate or prosecute any alcohol or drug abuse patient.[facility]In the event this information is protected by the Federal Confidentiality of Alcohol and Drug Abuse Patient Records regulations: The Federal rules restrict any use of the information to criminally investigate or prosecute any alcohol or drug abuse patient.[facility] CenterIn the event this information is protected by the Federal Confidentiality of Alcohol and Drug Abuse Patient Records regulations: The Federal rules restrict any use of the information to criminally investigate or prosecute any alcohol or drug abuse patient.[facility]In the event this information is protected by the Federal Confidentiality of Alcohol and Drug Abuse Patient Records regulations: The Federal rules restrict any use of the information to criminally investigate or prosecute any alcohol or drug abuse patient.[facility]In the event this information is protected by the Federal Confidentiality of Alcohol and Drug Abuse Patient Records regulations: The Federal rules restrict any use of the information to criminally investigate or prosecute any alcohol or drug abuse patient.[facility] CenterIn the event this information is protected by the Federal Confidentiality of Alcohol and Drug Abuse Patient Records regulations: The Federal rules restrict any use of the information to criminally investigate or prosecute any alcohol or drug abuse patient.[facility] CenterIn the event this information is protected by the Federal Confidentiality of Alcohol and Drug Abuse Patient Records regulations: The Federal rules restrict any use of the information to criminally investigate or prosecute any alcohol or drug abuse patient.[facility] CenterIn the event this information is protected by the Federal Confidentiality of Alcohol and Drug Abuse Patient Records regulations: The Federal rules restrict any use of the information to criminally investigate or prosecute any alcohol or drug abuse patient.[facility] CenterIn the event this information is protected by the Federal Confidentiality of Alcohol and Drug Abuse Patient Records regulations: The Federal rules restrict any use of the information to criminally investigate or prosecute any alcohol or drug abuse patient.[facility] CenterIn the event this information is protected by the Federal Confidentiality of Alcohol and Drug Abuse Patient Records regulations: The Federal rules restrict any use of the information to criminally investigate or prosecute any alcohol or drug abuse patient.[facility] CenterIn the event this information is protected by the Federal Confidentiality of Alcohol and Drug Abuse Patient Records regulations: The Federal rules restrict any use of the information to criminally investigate or prosecute any alcohol or drug abuse patient.[facility] CenterIn the event this information is protected by the Federal Confidentiality of Alcohol and Drug Abuse Patient Records regulations: The Federal rules restrict any use of the information to criminally investigate or prosecute any alcohol or drug abuse patient.[facility] CenterIn the event this information is protected by the Federal Confidentiality of Alcohol and Drug Abuse Patient Records regulations: The Federal rules restrict any use of the information to criminally investigate or prosecute any alcohol or drug abuse patient.[facility] CenterIn the event this information is protected by the Federal Confidentiality of Alcohol and Drug Abuse Patient Records regulations: The Federal rules restrict any use of the information to criminally investigate or prosecute any alcohol or drug abuse patient.[facility] CenterIn the event this information is protected by the Federal Confidentiality of Alcohol and Drug Abuse Patient Records regulations: The Federal rules restrict any use of the information to criminally investigate or prosecute any alcohol or drug abuse patient.[facility] CenterIn the event this information is protected by the Federal Confidentiality of Alcohol and Drug Abuse Patient Records regulations: The Federal rules restrict any use of the information to criminally investigate or prosecute any alcohol or drug abuse patient.[facility] CenterIn the event this information is protected by the Federal Confidentiality of Alcohol and Drug Abuse Patient Records regulations: The Federal rules restrict any use of the information to criminally investigate or prosecute any alcohol or drug abuse patient.[facility] CenterIn the event this information is protected by the Federal Confidentiality of Alcohol and Drug Abuse Patient Records regulations: The Federal rules restrict any use of the information to criminally investigate or prosecute any alcohol or drug abuse patient.[facility] CenterIn the event this information is protected by the Federal Confidentiality of Alcohol and Drug Abuse Patient Records regulations: The Federal rules restrict any use of the information to criminally investigate or prosecute any alcohol or drug abuse patient.[facility] CenterIn the event this information is protected by the Federal Confidentiality of Alcohol and Drug Abuse Patient Records regulations: The Federal rules restrict any use of the information to criminally investigate or prosecute any alcohol or drug abuse patient.[facility] CenterIn the event this information is protected by the Federal Confidentiality of Alcohol and Drug Abuse Patient Records regulations: The Federal rules restrict any use of the information to criminally investigate or prosecute any alcohol or drug abuse patient.[facility] CenterIn the event this information is protected by the Federal Confidentiality of Alcohol and Drug Abuse Patient Records regulations: The Federal rules restrict any use of the information to criminally investigate or prosecute any alcohol or drug abuse patient.[facility] CenterIn the event this information is protected by the Federal Confidentiality of Alcohol and Drug Abuse Patient Records regulations: The Federal rules restrict any use of the information to criminally investigate or prosecute any alcohol or drug abuse patient.[facility] CenterIn the event this information is protected by the Federal Confidentiality of Alcohol and Drug Abuse Patient Records regulations: The Federal rules restrict any use of the information to criminally investigate or prosecute any alcohol or drug abuse patient.[facility] CenterIn the event this information is protected by the Federal Confidentiality of Alcohol and Drug Abuse Patient Records regulations: The Federal rules restrict any use of the information to criminally investigate or prosecute any alcohol or drug abuse patient.[facility] CenterIn the event this information is protected by the Federal Confidentiality of Alcohol and Drug Abuse Patient Records regulations: The Federal rules restrict any use of the information to criminally investigate or prosecute any alcohol or drug abuse patient.[facility] CenterIn the event this information is protected by the Federal Confidentiality of Alcohol and Drug Abuse Patient Records regulations: The Federal rules restrict any use of the information to criminally investigate or prosecute any alcohol or drug abuse patient.[facility] CenterIn the event this information is protected by the Federal Confidentiality of Alcohol and Drug Abuse Patient Records regulations: The Federal rules restrict any use of the information to criminally investigate or prosecute any alcohol or drug abuse patient.[facility] CenterIn the event this information is protected by the Federal Confidentiality of Alcohol and Drug Abuse Patient Records regulations: The Federal rules restrict any use of the information to criminally investigate or prosecute any alcohol or drug abuse patient.[facility] CenterIn the event this information is protected by the Federal Confidentiality of Alcohol and Drug Abuse Patient Records regulations: The Federal rules restrict any use of the information to criminally investigate or prosecute any alcohol or drug abuse patient.[facility] CenterIn the event this information is protected by the Federal Confidentiality of Alcohol and Drug Abuse Patient Records regulations: The Federal rules restrict any use of the information to criminally investigate or prosecute any alcohol or drug abuse patient.[facility] CenterIn the event this information is protected by the Federal Confidentiality of Alcohol and Drug Abuse Patient Records regulations: The Federal rules restrict any use of the information to criminally investigate or prosecute any alcohol or drug abuse patient.[facility] CenterIn the event this information is protected by the Federal Confidentiality of Alcohol and Drug Abuse Patient Records regulations: The Federal rules restrict any use of the information to criminally investigate or prosecute any alcohol or drug abuse patient.[facility] CenterIn the event this information is protected by the Federal Confidentiality of Alcohol and Drug Abuse Patient Records regulations: The Federal rules restrict any use of the information to criminally investigate or prosecute any alcohol or drug abuse patient.[facility] CenterIn the event this information is protected by the Federal Confidentiality of Alcohol and Drug Abuse Patient Records regulations: The Federal rules restrict any use of the information to criminally investigate or prosecute any alcohol or drug abuse patient.[facility] CenterIn the event this information is protected by the Federal Confidentiality of Alcohol and Drug Abuse Patient Records regulations: The Federal rules restrict any use of the information to criminally investigate or prosecute any alcohol or drug abuse patient.[facility] CenterIn the event this information is protected by the Federal Confidentiality of Alcohol and Drug Abuse Patient Records regulations: The Federal rules restrict any use of the information to criminally investigate or prosecute any alcohol or drug abuse patient.[facility] CenterIn the event this information is protected by the Federal Confidentiality of Alcohol and Drug Abuse Patient Records regulations: The Federal rules restrict any use of the information to criminally investigate or prosecute any alcohol or drug abuse patient.[facility] CenterIn the event this information is protected by the Federal Confidentiality of Alcohol and Drug Abuse Patient Records regulations: The Federal rules restrict any use of the information to criminally investigate or prosecute any alcohol or drug abuse patient.[facility] CenterIn the event this information is protected by the Federal Confidentiality of Alcohol and Drug Abuse Patient Records regulations: The Federal rules restrict any use of the information to criminally investigate or prosecute any alcohol or drug abuse patient.[facility] CenterIn the event this information is protected by the Federal Confidentiality of Alcohol and Drug Abuse Patient Records regulations: The Federal rules restrict any use of the information to criminally investigate or prosecute any alcohol or drug abuse patient.[facility] CenterIn the event this information is protected by the Federal Confidentiality of Alcohol and Drug Abuse Patient Records regulations: The Federal rules restrict any use of the information to criminally investigate or prosecute any alcohol or drug abuse patient.[facility] CenterIn the event this information is protected by the Federal Confidentiality of Alcohol and Drug Abuse Patient Records regulations: The Federal rules restrict any use of the information to criminally investigate or prosecute any alcohol or drug abuse patient.[facility] CenterIn the event this information is protected by the Federal Confidentiality of Alcohol and Drug Abuse Patient Records regulations: The Federal rules restrict any use of the information to criminally investigate or prosecute any alcohol or drug abuse patient.[facility] CenterIn the event this information is protected by the Federal Confidentiality of Alcohol and Drug Abuse Patient Records regulations: The Federal rules restrict any use of the information to criminally investigate or prosecute any alcohol or drug abuse patient.[facility] CenterIn the event this information is protected by the Federal Confidentiality of Alcohol and Drug Abuse Patient Records regulations: The Federal rules restrict any use of the information to criminally investigate or prosecute any alcohol or drug abuse patient.[facility] CenterIn the event this information is protected by the Federal Confidentiality of Alcohol and Drug Abuse Patient Records regulations: The Federal rules restrict any use of the information to criminally investigate or prosecute any alcohol or drug abuse patient.[facility] CenterIn the event this information is protected by the Federal Confidentiality of Alcohol and Drug Abuse Patient Records regulations: The Federal rules restrict any use of the information to criminally investigate or prosecute any alcohol or drug abuse patient.[facility] CenterIn the event this information is protected by the Federal Confidentiality of Alcohol and Drug Abuse Patient Records regulations: The Federal rules restrict any use of the information to criminally investigate or prosecute any alcohol or drug abuse patient.[facility] CenterIn the event this information is protected by the Federal Confidentiality of Alcohol and Drug Abuse Patient Records regulations: The Federal rules restrict any use of the information to criminally investigate or prosecute any alcohol or drug abuse patient.[facility] CenterIn the event this information is protected by the Federal Confidentiality of Alcohol and Drug Abuse Patient Records regulations: The Federal rules restrict any use of the information to criminally investigate or prosecute any alcohol or drug abuse patient.[facility] CenterIn the event this information is protected by the Federal Confidentiality of Alcohol and Drug Abuse Patient Records regulations: The Federal rules restrict any use of the information to criminally investigate or prosecute any alcohol or drug abuse patient.[facility] CenterIn the event this information is protected by the Federal Confidentiality of Alcohol and Drug Abuse Patient Records regulations: The Federal rules restrict any use of the information to criminally investigate or prosecute any alcohol or drug abuse patient.[facility] CenterIn the event this information is protected by the Federal Confidentiality of Alcohol and Drug Abuse Patient Records regulations: The Federal rules restrict any use of the information to criminally investigate or prosecute any alcohol or drug abuse patient.[facility] CenterIn the event this information is protected by the Federal Confidentiality of Alcohol and Drug Abuse Patient Records regulations: The Federal rules restrict any use of the information to criminally investigate or prosecute any alcohol or drug abuse patient.[facility] CenterIn the event this information is protected by the Federal Confidentiality of Alcohol and Drug Abuse Patient Records regulations: The Federal rules restrict any use of the information to criminally investigate or prosecute any alcohol or drug abuse patient.[facility] CenterIn the event this information is protected by the Federal Confidentiality of Alcohol and Drug Abuse Patient Records regulations: The Federal rules restrict any use of the information to criminally investigate or prosecute any alcohol or drug abuse patient.[facility] CenterIn the event this information is protected by the Federal Confidentiality of Alcohol and Drug Abuse Patient Records regulations: The Federal rules restrict any use of the information to criminally investigate or prosecute any alcohol or drug abuse patient.[facility] CenterIn the event this information is protected by the Federal Confidentiality of Alcohol and Drug Abuse Patient Records regulations: The Federal rules restrict any use of the information to criminally investigate or prosecute any alcohol or drug abuse patient.[facility] CenterIn the event this information is protected by the Federal Confidentiality of Alcohol and Drug Abuse Patient Records regulations: The Federal rules restrict any use of the information to criminally investigate or prosecute any alcohol or drug abuse patient.[facility] CenterIn the event this information is protected by the Federal Confidentiality of Alcohol and Drug Abuse Patient Records regulations: The Federal rules restrict any use of the information to criminally investigate or prosecute any alcohol or drug abuse patient.[facility] CenterIn the event this information is protected by the Federal Confidentiality of Alcohol and Drug Abuse Patient Records regulations: The Federal rules restrict any use of the information to criminally investigate or prosecute any alcohol or drug abuse patient.[facility] CenterIn the event this information is protected by the Federal Confidentiality of Alcohol and Drug Abuse Patient Records regulations: The Federal rules restrict any use of the information to criminally investigate or prosecute any alcohol or drug abuse patient.[facility] CenterIn the event this information is protected by the Federal Confidentiality of Alcohol and Drug Abuse Patient Records regulations: The Federal rules restrict any use of the information to criminally investigate or prosecute any alcohol or drug abuse patient.[facility]In the event this information is protected by the Federal Confidentiality of Alcohol and Drug Abuse Patient Records regulations: The Federal rules restrict any use of the information to criminally investigate or prosecute any alcohol or drug abuse patient.[facility] CenterIn the event this information is protected by the Federal Confidentiality of Alcohol and Drug Abuse Patient Records regulations: The Federal rules restrict any use of the information to criminally investigate or prosecute any alcohol or drug abuse patient.[facility]In the event this information is protected by the Federal Confidentiality of Alcohol and Drug Abuse Patient Records regulations: The Federal rules restrict any use of the information to criminally investigate or prosecute any alcohol or drug abuse patient.[facility]In the event this information is protected by the Federal Confidentiality of Alcohol and Drug Abuse Patient Records regulations: The Federal rules restrict any use of the information to criminally investigate or prosecute any alcohol or drug abuse patient.[facility]In the event this information is protected by the Federal Confidentiality of Alcohol and Drug Abuse Patient Records regulations: The Federal rules restrict any use of the information to criminally investigate or prosecute any alcohol or drug abuse patient.[facility]In the event this information is protected by the Federal Confidentiality of Alcohol and Drug Abuse Patient Records regulations: The Federal rules restrict any use of the information to criminally investigate or prosecute any alcohol or drug abuse patient.[facility]In the event this information is protected by the Federal Confidentiality of Alcohol and Drug Abuse Patient Records regulations: The Federal rules restrict any use of the information to criminally investigate or prosecute any alcohol or drug abuse patient.[facility]In the event this information is protected by the Federal Confidentiality of Alcohol and Drug Abuse Patient Records regulations: The Federal rules restrict any use of the information to criminally investigate or prosecute any alcohol or drug abuse patient.[facility]In the event this information is protected by the Federal Confidentiality of Alcohol and Drug Abuse Patient Records regulations: The Federal rules restrict any use of the information to criminally investigate or prosecute any alcohol or drug abuse patient.[facility] CenterIn the event this information is protected by the Federal Confidentiality of Alcohol and Drug Abuse Patient Records regulations: The Federal rules restrict any use of the information to criminally investigate or prosecute any alcohol or drug abuse patient.[facility] CenterIn the event this information is protected by the Federal Confidentiality of Alcohol and Drug Abuse Patient Records regulations: The Federal rules restrict any use of the information to criminally investigate or prosecute any alcohol or drug abuse patient.[facility]In the event this information is protected by the Federal Confidentiality of Alcohol and Drug Abuse Patient Records regulations: The Federal rules restrict any use of the information to criminally investigate or prosecute any alcohol or drug abuse patient.[facility]In the event this information is protected by the Federal Confidentiality of Alcohol and Drug Abuse Patient Records regulations: The Federal rules restrict any use of the information to criminally investigate or prosecute any alcohol or drug abuse patient.[facility]In the event this information is protected by the Federal Confidentiality of Alcohol and Drug Abuse Patient Records regulations: The Federal rules restrict any use of the information to criminally investigate or prosecute any alcohol or drug abuse patient.[facility] CenterIn the event this information is protected by the Federal Confidentiality of Alcohol and Drug Abuse Patient Records regulations: The Federal rules restrict any use of the information to criminally investigate or prosecute any alcohol or drug abuse patient.[facility]In the event this information is protected by the Federal Confidentiality of Alcohol and Drug Abuse Patient Records regulations: The Federal rules restrict any use of the information to criminally investigate or prosecute any alcohol or drug abuse patient.[facility]In the event this information is protected by the Federal Confidentiality of Alcohol and Drug Abuse Patient Records regulations: The Federal rules restrict any use of the information to criminally investigate or prosecute any alcohol or drug abuse patient.[facility]In the event this information is protected by the Federal Confidentiality of Alcohol and Drug Abuse Patient Records regulations: The Federal rules restrict any use of the information to criminally investigate or prosecute any alcohol or drug abuse patient.[facility]In the event this information is protected by the Federal Confidentiality of Alcohol and Drug Abuse Patient Records regulations: The Federal rules restrict any use of the information to criminally investigate or prosecute any alcohol or drug abuse patient.[facility]In the event this information is protected by the Federal Confidentiality of Alcohol and Drug Abuse Patient Records regulations: The Federal rules restrict any use of the information to criminally investigate or prosecute any alcohol or drug abuse patient.[facility]In the event this information is protected by the Federal Confidentiality of Alcohol and Drug Abuse Patient Records regulations: The Federal rules restrict any use of the information to criminally investigate or prosecute any alcohol or drug abuse patient.[facility]In the event this information is protected by the Federal Confidentiality of Alcohol and Drug Abuse Patient Records regulations: The Federal rules restrict any use of the information to criminally investigate or prosecute any alcohol or drug abuse patient.[facility]In the event this information is protected by the Federal Confidentiality of Alcohol and Drug Abuse Patient Records regulations: The Federal rules restrict any use of the information to criminally investigate or prosecute any alcohol or drug abuse patient.[facility]In the event this information is protected by the Federal Confidentiality of Alcohol and Drug Abuse Patient Records regulations: The Federal rules restrict any use of the information to criminally investigate or prosecute any alcohol or drug abuse patient.[facility]In the event this information is protected by the Federal Confidentiality of Alcohol and Drug Abuse Patient Records regulations: The Federal rules restrict any use of the information to criminally investigate or prosecute any alcohol or drug abuse patient.[facility]In the event this information is protected by the Federal Confidentiality of Alcohol and Drug Abuse Patient Records regulations: The Federal rules restrict any use of the information to criminally investigate or prosecute any alcohol or drug abuse patient.[facility] CenterIn the event this information is protected by the Federal Confidentiality of Alcohol and Drug Abuse Patient Records regulations: The Federal rules restrict any use of the information to criminally investigate or prosecute any alcohol or drug abuse patient.[facility]In the event this information is protected by the Federal Confidentiality of Alcohol and Drug Abuse Patient Records regulations: The Federal rules restrict any use of the information to criminally investigate or prosecute any alcohol or drug abuse patient.[facility] CenterIn the event this information is protected by the Federal Confidentiality of Alcohol and Drug Abuse Patient Records regulations: The Federal rules restrict any use of the information to criminally investigate or prosecute any alcohol or drug abuse patient.[facility] CenterIn the event this information is protected by the Federal Confidentiality of Alcohol and Drug Abuse Patient Records regulations: The Federal rules restrict any use of the information to criminally investigate or prosecute any alcohol or drug abuse patient.[facility] CenterIn the event this information is protected by the Federal Confidentiality of Alcohol and Drug Abuse Patient Records regulations: The Federal rules restrict any use of the information to criminally investigate or prosecute any alcohol or drug abuse patient.[facility] CenterIn the event this information is protected by the Federal Confidentiality of Alcohol and Drug Abuse Patient Records regulations: The Federal rules restrict any use of the information to criminally investigate or prosecute any alcohol or drug abuse patient.[facility] CenterIn the event this information is protected by the Federal Confidentiality of Alcohol and Drug Abuse Patient Records regulations: The Federal rules restrict any use of the information to criminally investigate or prosecute any alcohol or drug abuse patient.[facility] CenterIn the event this information is protected by the Federal Confidentiality of Alcohol and Drug Abuse Patient Records regulations: The Federal rules restrict any use of the information to criminally investigate or prosecute any alcohol or drug abuse patient.[facility] CenterIn the event this information is protected by the Federal Confidentiality of Alcohol and Drug Abuse Patient Records regulations: The Federal rules restrict any use of the information to criminally investigate or prosecute any alcohol or drug abuse patient.[facility] CenterIn the event this information is protected by the Federal Confidentiality of Alcohol and Drug Abuse Patient Records regulations: The Federal rules restrict any use of the information to criminally investigate or prosecute any alcohol or drug abuse patient.[facility] CenterIn the event this information is protected by the Federal Confidentiality of Alcohol and Drug Abuse Patient Records regulations: The Federal rules restrict any use of the information to criminally investigate or prosecute any alcohol or drug abuse patient.[facility] CenterIn the event this information is protected by the Federal Confidentiality of Alcohol and Drug Abuse Patient Records regulations: The Federal rules restrict any use of the information to criminally investigate or prosecute any alcohol or drug abuse patient.[facility] CenterIn the event this information is protected by the Federal Confidentiality of Alcohol and Drug Abuse Patient Records regulations: The Federal rules restrict any use of the information to criminally investigate or prosecute any alcohol or drug abuse patient.[facility] Reason for Visit (unrecogniz ed section and content) Reason Comments Radiology CT Specialty Diagnoses / Procedures Referred By Contac t Referred To Contact CT IMAGING Diagnoses 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) Procedures CT CHEST W IVCON DIAGNOSTIC COMPUTED TOMOGRAPHY THORAX W/CONTRAST Grace Bess MD [address] [place] [address] [place] [address] Referral ID Status Reason Start Date Expiration Date V isits Requested Visits Authorized [id number] Closed Auto-Generate d Referral 05/26/2023 06/03/2024 1 1 Reason Comments Radiology [place] Referral ID Status Reason Start Date Expiration Date V isits Requested Visits Authorized [id number] Closed Auto-Generate d Referral 08/16/2023 08/31/2024 1 [...] Comments Benefits Investigation Reason Comments Care Coordination [employer] [place] referral Reason Comments Nutrition Assessment Reason Comments Care Coordination Antiemetics transfer red to Drug [place] in [place] Reason Comments Care Coordination Follow up call Reason Comments Care Coordination C1D1 treatment follo w up call Reason Comments Pancreatic Cancer 1 week follow Reason Comments Pancreatic Cancer Reason Comments Nutrition Counseling Specialty Diagnoses / Procedures Referred By Contac t Referred To Contact Diagnoses 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) Grace Bess MD [address] [place] [address] Luis Miguel Treat [address] [place] [address] Referral ID Status Reason Start Date Expiration Date V isits Requested Visits Authorized [id number] Authorized 02/22/2022 05/23/2022 99 99 Reason Comments [...] Date/Time Procedures LAB/PORT Grace Bess MD [address] [place] [address] Luis Miguel Delgado [address] [place] [address] Referral ID Status Reason Start Date Expiration Date V isits Requested Visits Authorized [id number] Authorized 09/28/2022 05/21/2023 99 99 Reason Comments [...] Date/Time Procedures LAB/PORT Grace Bess MD [address] [place] [address] Luis Miguel Delgado [address] [place] [address] Reason Comments CVAD Access Reason Comments Care [...] Expiration Date V isits Requested Visits Authorized [id number] Authorized 05/24/2023 08/22/2023 99 99 Reason Comments [...] 11/22/2023 Clinical Update 11/22/2023 Reason Comments Care Coordination Portogram results Referral ID Status Reason Start Date Expiration Date V isits Requested Visits Authorized [id number] Closed Auto-Generate d Referral 11/21/2023 11/29/2024 1 1 Reason Comments Radio Gen RMP Referral ID Status Reason Start Date Expiration Date V isits Requested Visits Authorized [id number] Closed Auto-Generate d Referral 11/10/2022 10/29/2023 1 1 Referral ID Status Reason Start Date Expiration Date V isits Requested Visits Authorized [id number] Closed Auto-Generate d Referral 07/25/2022 07/29/2023 1 1 Specialty Diagnoses / Procedures Referred By Contac t Referred To Contact CT IMAGING Diagnoses 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) Procedures CT ABD/PEL W IVCON CT ABD & PELVIS W/CONTRAST Grace Bess MD [address] [place] [address] [address] [place] [address] Referral ID Status Reason Start Date Expiration Date V isits Requested Visits Authorized [id number] Closed Auto-Generate d Referral 06/01/2022 06/10/2023 1 [address] Referral ID Status Reason Start Date Expiration Date V isits Requested Visits Authorized [id number] Closed Auto-Generate d Referral 03/01/2022 03/24/2023 1 1 Specialty Diagnoses / Procedures Referred By Contac t Referred To Contact CT IMAGING Diagnoses Other chronic pancreatitis (HCC) Procedures CT PANCREAS W IVCON CT ABDOMEN W/[place] [address] [address] [place] [address] [place] [address] Referral ID Status Reason Start Date Expiration Date V isits Requested Visits Authorized [id number] Closed Auto-Generate d Referral 07/21/2021 08/14/2022 1 1 Reason Comments Care Coordination [place] 19.9 Reason Comments Follow-up [facility] stay admitted dx: pneumonia discharged home 03/26/24 with rx for levaquin Care Teams (unrecognized sec tion and content) Chicken Handler Relationship Specialty Start Date End Date Giovanni Salinas II [address] [place] [address] PCP - General Internal Medicine 11/29/19 Cali Mehreenailyn Firas [address] [place] [address] Endocrinology 05/08/20 Chicken Handler Relationship Specialty Start Date End Date Giovanni Salinas II [address] [place] [address] PCP - General Internal Medicine 11/29/19 Cali Mehreenailyn Firas [address] [place] [address] Endocrinology 05/08/20 Chicken Handler Relationship Specialty Start Date End Date Brad Giovanni Raul II [address] [place] [address] PCP - General Internal Medicine 11/29/19 Cali Mehreenailyn Firas [address] [place] [address] Endocrinology 05/08/20 Chicken Handler Relationship Specialty Start Date End Date Giovanni Salinas II [address] [place] [address] PCP - General Internal Medicine 11/29/19 Cali Mehreenailyn Firjanel [address] [place] [address] Endocrinology 05/08/20 Chicken Handler Relationship Specialty Start Date End Date Brad Giovanni Raul II [address] [place] [address] PCP - General Internal Medicine 11/29/19 César Leiva Firjanel [address] [place] [address] Endocrinology 05/08/20 Chicken Handler Relationship Specialty Start Date End Date Giovanni Salinas II [address] [place] [address] PCP - General Internal Medicine 11/29/19 Cali Mehreenailyn Firas [address] [place] [address] Endocrinology 05/08/20 Chicken Handler Relationship Specialty Start Date End Date Giovanni Salinas II [address] [place] [address] PCP - General Internal Medicine 11/29/19 Cali Mehreenailyn Firas [address] [place] [address] Endocrinology 05/08/20 Chicken Handler Relationship Specialty Start Date End Date Giovanni Salinas II [address] [place] [address] PCP - General Internal Medicine 11/29/19 Cali Mehreenailyn Firas [address] [place] [address] Endocrinology 05/08/20 Chicken Handler Relationship Specialty Start Date End Date Giovanni Salinas II [address] [place] [address] PCP - General Internal Medicine 11/29/19 César Leiva Firas [address] [place] [address] Endocrinology 05/08/20 Josephine Salomon, RN [address] [place] [address] [place] [address] Specialty Payroll Accounting Manager Hematology/Oncology 03/04/22 Grace Bess MD [address] [place] [address] Physician Hematology/Oncology 03/04/22 Greta Wetzel PA-C [address] [facility] [place] [place] [address] Physician Rn Office Hematology/Oncology 03/04/22 Chicken Handler Relationship Specialty Start Date End Date Giovanni Salinas II [address] [place] [address] PCP - General Internal Medicine 11/29/19 César Leiva [address] [place] [address] Endocrinology 05/08/20 Josephine Salomon RN [address] [facility] [facility] [place] [place] [address] Specialty Payroll Accounting Manager Hematology/Oncology 03/04/22 [address] Bess MD [address] [place] [address] Physician Hematology/Oncology 03/04/22 Greta Wetzel PA-C [address] [facility] [facility] [place] [address] Physician Rn Office Hematology/Oncology 03/04/22 Chicken Handler Relationship Specialty Start Date End Date Giovanni Salinas II [address] [place] [address] PCP - General Internal Medicine 11/29/19 César Leiva [address] [place] [address] Endocrinology 05/08/20 Josephine Salomon RN [address] [facility] [place] [place] [address] Specialty Payroll Accounting Manager Hematology/Oncology 03/04/22 Grace Bess MD [address] [place] [address] Physician Hematology/Oncology 03/04/22 Greta Wetzel, LEONC [address] [facility] [place] [address] Physician Rn Office Hematology/Oncology 03/04/22 Chicken Handler Relationship Specialty Start Date End Date Giovanni Salinas II [address] [place] [address] PCP - General Internal Medicine 11/29/19 César Leiva [address] [place] [address] Endocrinology 05/08/20 Josephine Salomon RN [address] [facility] [place] [address] Specialty Payroll Accounting Manager Hematology/Oncology 03/04/22 Grace Bess MD [address] [place] [address] Physician Hematology/Oncology 03/04/22 Greta Wetzel, PALaurenC [address] [facility] [address] Physician Rn Office Hematology/Oncology 03/04/22 Chicken Handler Relationship Specialty Start Date End Date Giovanni Salinas II [address] [place] [address] PCP - General Internal Medicine 11/29/19 César Leiva [address] [place] [address] Endocrinology 05/08/20 Josephine Salomon RN [address] [facility] [place] [address] Specialty Payroll Accounting Manager Hematology/Oncology 03/04/22 Grace Bess MD [address] [place] [address] Physician Hematology/Oncology 03/04/22 Greta Wetzel PA-C [address] [facility] [place] [address] Physician Rn Office Hematology/Oncology 03/04/22 Chicken Handler Relationship Specialty Start Date End Date Giovanni Salinas II [address] [place] [address] PCP - General Internal Medicine 11/29/19 CaliCésar Firas [address] [place] [address] Endocrinology 05/08/20 Josephine Salomon RN [address] [facility] [place] [address] Specialty Payroll Accounting Manager Hematology/Oncology 03/04/22 Grace Bess MD [address] [place] [address] Physician Hematology/Oncology 03/04/22 Greta Wetzel PA-C [address] [facility] [place] [address] Physician Rn Office Hematology/Oncology 03/04/22 Chicken Handler Relationship Specialty Start Date End Date Giovanni Salinas II [address] [place] [address] PCP - General Internal Medicine 11/29/19 César Leiva Firas [address] [place] [address] Endocrinology 05/08/20 Josephine Salomon RN [address] [facility] [place] [address] Specialty Payroll Accounting Manager Hematology/Oncology 03/04/22 Grace Bess MD [address] [place] [address] Physician Hematology/Oncology 03/04/22 Greta Wetzel PA-C [address] [place] [address] [place] [address] Physician Rn Office Hematology/Oncology 03/04/22 Chicken Handler Relationship Specialty Start Date End Date Giovanni Salinas II [address] [place] [address] PCP - General Internal Medicine 11/29/19 César Leiva Firas [address] [place] [address] Endocrinology 05/08/20 Josephine Salomon RN [address] [facility] [place] [address] Specialty Payroll Accounting Manager Hematology/Oncology 03/04/22 Grace Bess MD [address] [place] [address] Physician Hematology/Oncology 03/04/22 Greta Wetzel PA-C [address] [facility] [place] [address] Physician Rn Office Hematology/Oncology 03/04/22 Chicken Handler Relationship Specialty Start Date End Date Giovanni Salinas II [address] [place] [address] PCP - General Internal Medicine 11/29/19 César Leiva Firjanel [address] [place] [address] Endocrinology 05/08/20 Josephine Salomon RN [address] [facility] [place] [address] Specialty Payroll Accounting Manager Hematology/Oncology 03/04/22 Grace Bess MD [address] [place] [address] Physician Hematology/Oncology 03/04/22 Greta Wetzel PA-C [address] [facility] [place] [address] Physician Rn Office Hematology/Oncology 03/04/22 Chicken Handler Relationship Specialty Start Date End Date Giovanni Salinas II [address] [place] [address] PCP - General Internal Medicine 11/29/19 César Leiva [address] [place] [address] Endocrinology 05/08/20 Josephine Salomon RN [address] [facility] [place] [address] Specialty Payroll Accounting Manager Hematology/Oncology 03/04/22 Grace Bess MD [address] [place] [address] Physician Hematology/Oncology 03/04/22 Greta Wetzel PA-C [address] [facility] [place] [address] Physician Rn Office Hematology/Oncology 03/04/22 Chicken Handler Relationship Specialty Start Date End Date Giovanni Salinas II [address] [place] [address] PCP - General Internal Medicine 11/29/19 César Leiva [address] [place] [address] Endocrinology 05/08/20 Josephine Salomon RN [address] [facility] [place] [address] Specialty Payroll Accounting Manager Hematology/Oncology 03/04/22 Grace Bess MD [address] [place] [address] Physician Hematology/Oncology 03/04/22 Greta Wetzel PA-C [address] [facility] [place] [address] Physician Rn Office Hematology/Oncology 03/04/22 Chicken Handler Relationship Specialty Start Date End Date Giovanni Salinas II [address] [facility] [address] [place] [address] PCP - General Internal Medicine 11/29/19 César Leiva [address] [facility] 7 [place] [address] Endocrinology 05/08/20 Josephine Salomon RN [address] [facility] [place] [address] Specialty Payroll Accounting Manager Hematology/Oncology 03/04/22 Grace Bess MD [address] [place] [address] Physician Hematology/Oncology 03/04/22 Greta Wetzel PALaurenC [address] [facility] [place] [address] Physician Rn Office Hematology/Oncology 03/04/22 Chicken Handler Relationship Specialty Start Date End Date Giovanni Salinas II [address] [facility] [address] [place] [address] PCP - General Internal Medicine 11/29/19 César Leiva [address] [place] [address] Endocrinology 05/08/20 Josephine Salomon, LUIS ANTONIO [address] [facility] [place] [address] Specialty Payroll Accounting Manager Hematology/Oncology 03/04/22 Grace Bess MD [address] [place] [address] Physician Hematology/Oncology 03/04/22 Greta Wetzel PALaurenC [address] [facility] [place] [address] Physician Rn Office Hematology/Oncology 03/04/22 Chicken Handler Relationship Specialty Start Date End Date Giovanni Salinas II [address] [facility] [address] [place] [address] PCP - General Internal Medicine 11/29/19 [facility] [address] [place] [address] Endocrinology 05/08/20 Josephine Salomon RN [address] [facility] [place] [address] Specialty Payroll Accounting Manager Hematology/Oncology 03/04/22 Grace Bess MD [address] [place] [address] Physician Hematology/Oncology 03/04/22 Greta Wetzel PALaurenC [address] [facility] [place] [address] Physician Rn Office Hematology/Oncology 03/04/22 Chicken Handler Relationship Specialty Start Date End Date Giovanni Salinas II [address] [place] [address] PCP - General Internal Medicine 11/29/19 [facility] [address] [place] [address] Endocrinology 05/08/20 Josephine Salomon, RN [address] [facility] [place] [address] Specialty Payroll Accounting Manager Hematology/Oncology 03/04/22 Grace Bess MD [address] [place] [address] Physician Hematology/Oncology 03/04/22 Greta Wetzel PA-C [address] [facility] [place] [address] Physician Rn Office Hematology/Oncology 03/04/22 Chicken Handler Relationship Specialty Start Date End Date Giovanni Salinas II [address] [facility] [address] [place] [address] PCP - General Internal Medicine 11/29/19 Cali [facility] [address] [place] [address] Endocrinology 05/08/20 Josephine Salomon RN [address] [facility] [place] [address] Specialty Payroll Accounting Manager Hematology/Oncology 03/04/22 Grace Bess MD [address] [place] [address] Physician Hematology/Oncology 03/04/22 Greta Wetzel PA-C [address] [facility] [place] [address] Physician Rn Office Hematology/Oncology 03/04/22 Chicken Handler Relationship Specialty Start Date End Date Giovanni Salinas II [address] [place] [address] PCP - General Internal Medicine 11/29/19 César Leiva [address] [place] [address] Endocrinology 05/08/20 Josephine Salomon, LUIS ANTONIO [address] [facility] [place] [address] Specialty Payroll Accounting Manager Hematology/Oncology 03/04/22 Grace Bess MD [address] [place] [address] Physician Hematology/Oncology 03/04/22 Greta Wetzel PA-C [address] [facility] [place] [address] Physician Rn Office Hematology/Oncology 03/04/22 Chicken Handler Relationship Specialty Start Date End Date Giovanni Salinas II [address] [facility] [address] [place] [address] PCP - General Internal Medicine 11/29/19 César Leiva MD [address] [place] [address] Endocrinology 05/08/20 Josephine Salomon RN [address] [facility] [place] [address] Specialty Payroll Accounting Manager Hematology/Oncology 03/04/22 Grace Bess MD [address] [facility] [place] [address] Physician Hematology/Oncology 03/04/22 Greta Wetzel PA-C [address] [facility] [address] Physician Rn Office Hematology/Oncology 03/04/22 Chicken Handler Relationship Specialty Start Date End Date Giovanni Salinas II [address] [place] [address] PCP - General Internal Medicine 11/29/19 César Leiva MD [address] [place] [address] Endocrinology 05/08/20 Josephine Salomon, LUIS ANTONIO [address] [facility] [place] [address] Specialty Payroll Accounting Manager Hematology/Oncology 03/04/22 Grace Bess MD [address] [place] [address] Physician Hematology/Oncology 03/04/22 Greta Wetzel, PALaurenC [address] [facility] [place] [address] Physician Rn Office Hematology/Oncology 03/04/22 Chicken Handler Relationship Specialty Start Date End Date Giovanni Salinas II [address] [facility] [address] [place] [address] PCP - General Internal Medicine 11/29/19 César Leiva MD [address] [place] [address] Endocrinology 05/08/20 Josephine Salomon RN [address] [facility] [address] Specialty Payroll Accounting Manager Hematology/Oncology 03/04/22 Grace Bess MD [address] [place] [address] Physician Hematology/Oncology 03/04/22 Greta Wetzel, PALaurenC [address] [facility] [place] [address] Physician Rn Office Hematology/Oncology 03/04/22 Chicken Handler Relationship Specialty Start Date End Date Giovanni Salinas II [address] [place] [address] PCP - General Internal Medicine 11/29/19 César Leiva MD [address] [place] [address] Endocrinology 05/08/20 Josephine Salomon RN [address] [facility] [place] [address] Specialty Payroll Accounting Manager Hematology/Oncology 03/04/22 Grace Bess MD [address] [place] [address] Physician Hematology/Oncology 03/04/22 Greta Wetzel PA-C [address] [facility] [place] [address] Physician Rn Office Hematology/Oncology 03/04/22 Chicken Handler Relationship Specialty Start Date End Date Giovanni Salinas II [address] [place] [address] PCP - General Internal Medicine 11/29/19 César Leiva MD [address] [place] [address] Endocrinology 05/08/20 Josephine Salomon RN [address] [facility] [place] [address] Specialty Payroll Accounting Manager Hematology/Oncology 03/04/22 Grace Bess MD [address] [facility] [place] [address] Physician Hematology/Oncology 03/04/22 Greta Wetzel PA-C [address] [place] [address] Physician Rn Office Hematology/Oncology 03/04/22 Chicken Handler Relationship Specialty Start Date End Date Giovanni Salinas II [address] [place] [address] PCP - General Internal Medicine 11/29/19 César Leiva MD [address] [place] [address] Endocrinology 05/08/20 Josephine Salomon, RN [address] [facility] [place] [place] [address] Specialty Payroll Accounting Manager Hematology/Oncology 03/04/22 Grace Bess MD [address] [place] [address] Physician Hematology/Oncology 03/04/22 Greta Wetzel, LEONC [address] [facility] [place] [place] [address] Physician Rn Office Hematology/Oncology 03/04/22 Chicken Handler Relationship Specialty Start Date End Date Brad Giovanni B II [address] [place] [address] PCP - General Internal Medicine 11/29/19 César Leiva MD [address] [place] [address] Endocrinology 05/08/20 Joesphine Salomon RN [address] [facility] [address] Specialty Payroll Accounting Manager Hematology/Oncology 03/04/22 Grace Bess MD [address] [place] [address] Physician Hematology/Oncology 03/04/22 Greta Wetzel PALaurenC [address] [facility] [place] [address] Physician Rn Office Hematology/Oncology 03/04/22 Chicken Handler Relationship Specialty Start Date End Date SalinasGiovanni Raul II [address] [place] [address] PCP - General Internal Medicine 11/29/19 César Leiva MD [address] [place] [address] Endocrinology 05/08/20 Josephine Salomon, RN [address] [facility] [address] [place], [place] [address] Specialty Payroll Accounting Manager Hematology/Oncology 03/04/22 Grace Bess MD [address] [place] [address] Physician Hematology/Oncology 03/04/22 Greta Wetzel PA-C [address] [facility] [place] [place] [address] Physician Rn Office Hematology/Oncology 03/04/22 Chicken Handler Relationship Specialty Start Date End Date Giovanni Salinas II [address] [place] [address] PCP - General Internal Medicine 11/29/19 César Leiva MD [address] [place] [address] Endocrinology 05/08/20 Josephine Salomon RN [address] [facility] [place] [address] Specialty Payroll Accounting Manager Hematology/Oncology 03/04/22 Grace Bess MD [address] [place] [address] Physician Hematology/Oncology 03/04/22 Greta Wetzel PA-C [address] [facility] [place] [address] Physician Rn Office Hematology/Oncology 03/04/22 Chicken Handler Relationship Specialty Start Date End Date Brad Giovanni B II [address] [place] [address] PCP - General Internal Medicine 11/29/19 César Leiva MD [address] [place] [address] Endocrinology 05/08/20 Josephine Salomon, RN [address] [facility] [place] [place] [address] Specialty Payroll Accounting Manager Hematology/Oncology 03/04/[address] [address] Physician Hematology/Oncology 03/04/22 Greta Wetzel PA-C [address] [facility] [address] [place], [place] [address] Physician Rn Office Hematology/Oncology 03/04/22 Chicken Handler Relationship Specialty Start Date End Date Giovanni Salinas II [address] [facility] [address] [place] [address] PCP - General Internal Medicine 11/29/19 César Leiva MD [address] [place] [address] Endocrinology 05/08/20 Josephine Salomon, RN [address] [facility] [place] [address] Specialty Payroll Accounting Manager Hematology/Oncology 03/04/[address] [facility] [place] [address] Physician Hematology/Oncology 03/04/22 Greta Wetzel PA-C [address] [place] [address] Physician Rn Office Hematology/Oncology 03/04/22 Chicken Handler Relationship Specialty Start Date End Date Giovanni Salinas II [address] [place] [address] PCP - General Internal Medicine 11/29/19 César Leiva MD [address] [place] [address] Endocrinology 05/08/20 Josephine Salomon RN [address] [place] [address] Specialty Payroll Accounting Manager Hematology/Oncology 03/04/22 Grace Bess MD [address] [place] [address] Physician Hematology/Oncology 03/04/22 Greta Wetzel PA-C [address] [place] [address] Physician Rn Office Hematology/Oncology 03/04/22 Chicken Handler Relationship Specialty Start Date End Date Giovanni Salinas II [address] [place] [address] PCP - General Internal Medicine 11/29/19 César Leiva MD [address] [place] [address] Endocrinology 05/08/20 Josephine Salomon RN [address] [place] [address] Specialty Payroll Accounting Manager Hematology/Oncology 03/04/22 Grace Bess MD [address] [place] [address] [place] [address] Physician Hematology/Oncology 03/04/22 Greta Wetzel PA-C [address] [place] [address] [place] [address] Physician Rn Office Hematology/Oncology 03/04/22 Chicken Handler Relationship Specialty Start Date End Date Giovanni Salinas II [address] [place] [address] PCP - General Internal Medicine 11/29/19 César Leiva MD [facility] [address] [place] [address] Endocrinology 05/08/20 Josephine Salomon, RN [address] [facility] [place] [address] Specialty Payroll Accounting Manager Hematology/Oncology 03/04/22 Grace Bess MD [address] [place] [address] Physician Hematology/Oncology 03/04/22 Greta Wetzel PA-C [address] [place] [address] [place] [address] Physician Rn Office Hematology/Oncology 03/04/22 Chicken Handler Relationship Specialty Start Date End Date Giovanni Salinas II [address] [facility] [address] [place] [address] PCP - General Internal Medicine 11/29/19 César Leiva MD [address] [place] [address] Endocrinology 05/08/20 Josephine Salomon RN [address] [place] [address] Specialty Payroll Accounting Manager Hematology/Oncology 03/04/22 Grace Bess MD [address] [facility] [place] [address] Physician Hematology/Oncology 03/04/22 Greta Wetzel PA-C [address] [facility] [place] [address] Physician Rn Office Hematology/Oncology 03/04/22 Chicken Handler Relationship Specialty Start Date End Date Giovanni Salinas II [address] [place] [address] PCP - General Internal Medicine 11/29/19 César Leiva MD [address] [place] [address] Endocrinology 05/08/20 Josephine Salomon RN [address] [facility] [place] [address] Specialty Payroll Accounting Manager Hematology/Oncology 03/04/22 Grace Bess MD [address] [facility] [place] [address] Physician Hematology/Oncology 03/04/22 Greta Wetzel PA-C [address] [facility] [place] [address] Physician Rn Office Hematology/Oncology 03/04/22 Chicken Handler Relationship Specialty Start Date End Date Giovanni Salinas II [address] [place] [address] PCP - General Internal Medicine 11/29/19 César Leiva MD [address] [place] [address] Endocrinology 05/08/20 Josephine Salomon, LUIS ANTONIO [address] [facility] [place] [address] Specialty Payroll Accounting Manager Hematology/Oncology 03/04/22 Grace Bess MD 417 [facility] [place] [address] Physician Hematology/Oncology 03/04/22 Greta Wetzel PA-C [address] [facility] [address] [place], [place] [address]70 Physician Rn Office Hematology/Oncology 03/04/22 Team Status: Active Member Role Status Dates Giovanni Salinas II MD Primary Care Provider Active Team Status: Inactive Member Role Status Dates Giovanni Salinas II MD Primary Care Provider Active Jemma Padilla APRN Emergency Provider Active Chicken Handler Relationship Specialty Start Date End Date Giovanni Salinas II [address] [facility] [address] [place] [address] PCP - General Internal Medicine 11/29/19 César Leiva MD [address] [place] [address] Endocrinology 05/08/20 Josephine Salomon, LUIS ANTONIO [address] [facility] [place] [address] Specialty Payroll Accounting Manager Hematology/Oncology 03/04/22 Grace Bess MD [address] [place] [address] Physician Hematology/Oncology 03/04/22 Greta Wetzel PA-C [address] [facility] [place] [address] Physician Rn Office Hematology/Oncology 03/04/22 Chicken Handler Relationship Specialty Start Date End Date Giovanni Salinas II [address] [place] [address] PCP - General Internal Medicine 11/29/19 César Leiva MD [address] [address] [place] [address] Endocrinology 05/08/20 Josephine Salomon, RN [address] [facility] [place] [address] Specialty Payroll Accounting Manager Hematology/Oncology 03/04/22 Grace Bess MD [address] [place] [address] Physician Hematology/Oncology 03/04/22 Greta Wetzel PA-C [address] [facility] [place] [address] Physician Rn Office Hematology/Oncology 03/04/22 Chicken Handler Relationship Specialty Start Date End Date Giovanni Salinas II, MD [address] [place] [address] PCP - General Internal Medicine 11/29/19 César Leiva MD [address] [place] [address] Endocrinology 05/08/20 Josephine Salomon RN [address] [facility] [place] [address] Specialty Payroll Accounting Manager Hematology/Oncology 03/04/22 Grace Bess MD 417 [facility] [place] [address] Physician Hematology/Oncology 03/04/22 Greta Wetzel PA-C [address] [place] [address] [place] [address] Physician Rn Office Hematology/Oncology 03/04/22 Chicken Handler Relationship Specialty Start Date End Date Giovanni Salinas II, MD [address] [facility] [address] [place] [address] PCP - General Internal Medicine 11/29/19 César Leiva MD [address] [place] [address] Endocrinology 05/08/20 Josephine Salomon RN [address] [facility] [place] [address] Specialty Payroll Accounting Manager Hematology/Oncology 03/04/22 Grace Bess MD [address] [facility] [place] [address] Physician Hematology/Oncology 03/04/22 Greta Wetzel PA-C [address] [place] [address] [place] [address] Physician Rn Office Hematology/Oncology 03/04/22 Chicken Handler Relationship Specialty Start Date End Date Giovanni Salinas II, MD [address] [place] [address] PCP - General Internal Medicine 11/29/19 César Leiva MD [address] [place] [address] Endocrinology 05/08/20 Josephine Salomon, RN [address] [facility] [place] [address] Specialty Payroll Accounting Manager Hematology/Oncology 03/04/22 Grace Bess MD [address] [facility] [place] [address] Physician Hematology/Oncology 03/04/22 Greta Wetzel PA-C [address] [facility] [place] [place] [address] Physician Rn Office Hematology/Oncology 03/04/22 Chicken Handler Relationship Specialty Start Date End Date Giovanni Salinas II, MD [address] [place] [address] PCP - General Internal Medicine 11/29/19 César Levia MD [address] [place] [address] Endocrinology 05/08/20 Joesphine Salomon, RN [address] [facility] [place] [address] Specialty Payroll Accounting Manager Hematology/Oncology 03/04/22 Grace Bess MD [address] [facility] [place] [address] Physician Hematology/Oncology 03/04/22 Greta Wetzel PA-C [address] [facility] [facility] [place] [address] Physician Rn Office Hematology/Oncology 03/04/22 Chicken Handler Relationship Specialty Start Date End Date Giovanni Salinas II, MD [address] [place] [address] PCP - General Internal Medicine 11/29/19 César Leiva MD [address] [place] [address] Endocrinology 05/08/20 Josephine Salomon RN [address] [facility] [place] [address] Specialty Payroll Accounting Manager Hematology/Oncology 03/04/22 Grace Bess MD [address] [place] [address] Physician Hematology/Oncology 03/04/22 Greta Wetzel PA-C [address] [facility] [place] [place] [address] Physician Rn Office Hematology/Oncology 03/04/22 Chicken Handler Relationship Specialty Start Date End Date Giovanni Salinas II, MD [address] [place] [address] PCP - General Internal Medicine 11/29/19 César Leiva MD [address] [place] [address] Endocrinology 05/08/20 Josephine Salomon RN [address] [place] [place] [address] Specialty Payroll Accounting Manager Hematology/Oncology 03/04/22 Grace Bess MD 417 [facility] [place] [address] Physician Hematology/Oncology 03/04/22 Greta Wetzel PA-C [address] [place] [address] [place] [address] Physician Rn Office Hematology/Oncology 03/04/22 Chicken Handler Relationship Specialty Start Date End Date Giovanni Salinas II, MD [address] [place] [address] PCP - General Internal Medicine 11/29/19 Cés[place] [address] [place] [address] [address] [place] [address] Endocrinology 05/08/20 Josephine Salomon RN [address] [facility] [place] [address] Specialty Payroll Accounting Manager Hematology/Oncology 03/04/22 Grace Bess MD [address] [place] [address] Physician Hematology/Oncology 03/04/22 Greta Wetzel PA-C [address] [facility] [place] [address] Physician Rn Office Hematology/Oncology 03/04/22 Chicken Handler Relationship Specialty Start Date End Date Giovanni Salinas II, MD [address] [place] [address] PCP - General Internal Medicine 11/29/19 César Leiva MD [address] [place] [address] Endocrinology 05/08/20 Josephine Salomon RN [address] [facility] [facility] [place] [address] Specialty Payroll Accounting Manager Hematology/Oncology 03/04/22 Grace Bess MD [address] [place] [address] [place] [address] Physician Hematology/Oncology 03/04/22 Greta Wetzel PA-C [address] [place] [address] [place] [address] Physician Rn Office Hematology/Oncology 03/04/22 Chicken Handler Relationship Specialty Start Date End Date Giovanni Salinas II, MD [address] [facility] [address] [place] [address] PCP - General Internal Medicine 11/29/19 César Leiva MD [address] [place] [address] Endocrinology 05/08/20 Josephine Salomon RN [address] [facility] [facility] [place] [address] Specialty Payroll Accounting Manager Hematology/Oncology 03/04/22 Grace Bess MD 417 [facility] [place] [address] Physician Hematology/Oncology 03/04/22 Greta Wetzel PA-C [address] [facility] [place] [address] Physician Rn Office Hematology/Oncology 03/04/22 Chicken Handler Relationship Specialty Start Date End Date Giovanni Salinas II, MD [address] [place] [address] PCP - General Internal Medicine 11/29/19 César Leiva MD [address] [place] [address] Endocrinology 05/08/20 Josephine Salomon RN [address] [facility] [facility] [place] [place] [address] Specialty Payroll Accounting Manager Hematology/Oncology 03/04/22 Grace Bess MD [address] [place] [address] Physician Hematology/Oncology 03/04/22 Greta Wetzel PA-C [address] [facility] [facility] [place] [place] [address] Physician Rn Office Hematology/Oncology 03/04/22 Chicken Handler Relationship Specialty Start Date End Date Giovanni Salinas II, MD [address] [facility] [address] [place] [address] PCP - General Internal Medicine 11/29/19 César Leiva MD [address] [place] [address] Endocrinology 05/08/20 Josephine Salomon, RN [address] [place] [place] [address] Specialty Payroll Accounting Manager Hematology/Oncology 03/04/22 Grace Bess MD [address] [facility] [place] [address] Physician Hematology/Oncology 03/04/22 Greta Wetzel PA-C [address] [place] [address] [place] [address] Physician Rn Office Hematology/Oncology 03/04/22 Chicken Handler Relationship Specialty Start Date End Date Giovanni Salinas II, MD [address] [facility] [address] [place] [address] PCP - General Internal Medicine 11/29/19 César Leiva MD [address] [place] [address] Endocrinology 05/08/20 Josephine Salomon RN [address] [facility] [address] [place] [id number] Specialty Payroll Accounting Manager Hematology/Oncology 03/04/22 Grace Bess MD [address] [place] [address] [place] [address] Physician Hematology/Oncology 03/04/22 Greta Wetzel PA-C [address] [place] [address] [place] [address] Physician Rn Office Hematology/Oncology 03/04/22 Chicken Handler Relationship Specialty Start Date End Date Giovanni Salinas II, MD [address] [facility] [address] [place] [address] PCP - General Internal Medicine 11/29/19 César Leiva MD [address] [place] [address] Endocrinology 05/08/20 Josephine Salomon RN [address] [facility] [place] [address] Specialty Payroll Accounting Manager Hematology/Oncology 03/04/22 Grace Bess MD 417 [facility] [place] [address] Physician Hematology/Oncology 03/04/22 Greta Wetzel PA-C [address] [facility] [place] [address] Physician Rn Office Hematology/Oncology 03/04/22 Chicken Handler Relationship Specialty Start Date End Date Giovanni Salinas II, MD [address] [place] [address] PCP - General Internal Medicine 11/29/19 César Leiva MD [address] [place] [address] Endocrinology 05/08/20 Josephine Salomon RN [address] [facility] [place] [address] Specialty Payroll Accounting Manager Hematology/Oncology 03/04/22 Grace Bess MD [address] [facility] [place] [address] Physician Hematology/Oncology 03/04/22 Greta Wetzel PA-C [address] [facility] [place] [address] Physician Rn Office Hematology/Oncology 03/04/22 Chicken Handler Relationship Specialty Start Date End Date Giovanni Salinas II, MD [address] [place] [address] PCP - General Internal Medicine 11/29/19 César Leiva MD [address] [place] [address] Endocrinology 05/08/20 Josephine Salomon RN [address] [facility] [address] [place], [place] [address]70 Specialty Payroll Accounting Manager Hematology/Oncology 03/04/22 [address] [facility] [place] [address] Physician Hematology/Oncology 03/04/22 Greta Wetzel PA-C [address] [facility] [place] [address] Physician Rn Office Hematology/Oncology 03/04/22 Chicken Handler Relationship Specialty Start Date End Date Giovanni Salinas II, MD [address] [facility] [address] [place] [address] PCP - General Internal Medicine 11/29/19 César Leiva MD [address] [place] [address] Endocrinology 05/08/20 Josephine Salomon RN [address] [facility] [facility] [place] [address] Specialty Payroll Accounting Manager Hematology/Oncology 03/04/22 Grace Bess MD [address] [facility] [place] [address] Physician Hematology/Oncology 03/04/22 Greta Wetzel PA-C [address] [facility] [place] [address] Physician Rn Office Hematology/Oncology 03/04/22 Chicken Handler Relationship Specialty Start Date End Date Giovanni Salinas II, MD [address] [place] [address] PCP - General Internal Medicine 11/29/19 César Leiva MD [address] [place] [address] Endocrinology 05/08/20 Josephine Salomon RN [address] [facility] [place] [address] Specialty Payroll Accounting Manager Hematology/Oncology 03/04/22 Grace Bess MD 417 [facility] [address] [address] Physician Hematology/Oncology 03/04/22 Greta Wetzel PA-C [address] [facility] [place] [address] Physician Rn Office Hematology/Oncology 03/04/22 Chicken Handler Relationship Specialty Start Date End Date Giovanni Salinas II, MD [address] [facility] [address] [place] [address] PCP - General Internal Medicine 11/29/19 César Leiva MD [address] [place] [address] Endocrinology 05/08/20 Josephine Salomon RN [address] [facility] [place] [address] Specialty Payroll Accounting Manager Hematology/Oncology 03/04/22 Grace Bess MD [address] [place] [address] Physician Hematology/Oncology 03/04/22 Greta Wetzel PA-C [address] [facility] [place] [address] Physician Rn Office Hematology/Oncology 03/04/22 Chicken Handler Relationship Specialty Start Date End Date Giovanni Salinas II, MD [address] [facility] [address] [place] [address] PCP - General Internal Medicine 11/29/19 César Leiva MD [address] [facility] [address] [place] [address] Endocrinology 05/08/20 Josephine Salomon, LUIS ANTONIO [address] [facility] [place] [address] Specialty Payroll Accounting Manager Hematology/Oncology 03/04/22 Grace Bess MD [address] [place] [address] Physician Hematology/Oncology 03/04/22 Greta Wetzel PA-C [address] [facility] [place] [address] Physician Rn Office Hematology/Oncology 03/04/[address] [facility] [place] [address] Registered Dietitian Nutrition 06/07/23 Chicken Handler Relationship Specialty Start Date End Date Giovanni Salinas II, MD [address] [facility] [address] [place] [address] PCP - General Internal Medicine 11/29/19 César Leiva MD [address] [place] [address] Endocrinology 05/08/20 Josephine Salomon, LUIS ANTONIO [address] [facility] [facility] [place] [address] Specialty Payroll Accounting Manager Hematology/Oncology 03/04/22 Grace Bess MD [address] [facility] [place] [address] Physician Hematology/Oncology 03/04/22 Greta Wetzel PA-C [address] [facility] [facility] [place] [address] Physician Rn Office Hematology/Oncology 03/04/[address] [facility] [place] [address] Registered Dietitian Nutrition 06/07/23 Chicken Handler Relationship Specialty Start Date End Date Giovanni Salinas II, MD [address] [place] [address] PCP - General Internal Medicine 11/29/19 César Leiva MD [address] [place] [address] Endocrinology 05/08/20 Josephine Salomon, LUIS ANTONIO [address] [facility] [place] [address] Specialty Payroll Accounting Manager Hematology/Oncology 03/04/22 Grace Bess MD [address] [facility] [place] [address] Physician Hematology/Oncology 03/04/22 Greta Wetzel PA-C [address] [facility] [place] [address] Physician Rn Office Hematology/Oncology 03/04/[address] [facility] [place] [address] Registered Dietitian Nutrition 06/07/23 Chicken Handler Relationship Specialty Start Date End Date Giovanni Salinas II, MD [address] [place] [address] PCP - General Internal Medicine 11/29/19 César Leiva MD [address] [facility] [address] [place] [address] Endocrinology 05/08/20 Josephine Salomon, RN [address] [facility] [address] [place], [place] [address] Specialty Payroll Accounting Manager Hematology/Oncology 03/04/22 Grace Bess MD [address] [facility] [place] [address] Physician Hematology/Oncology 03/04/22 Greta Wetzel PA-C [address] [facility] [place] [address] Physician Rn Office Hematology/Oncology 03/04/[address] [facility] [place] [address] Registered Dietitian Nutrition 06/07/23 Chicken Handler Relationship Specialty Start Date End Date Giovanni Salinas MD [address] [place] [address] PCP - ACO Reach 10/13/22 Giovanni Salinas MD [address] [facility] [address] [place] [address] PCP - General Internal Medicine 10/20/22 Chicken Handler Relationship Specialty Start Date End Date Giovanni Salinas II, MD [address] [place] [address] PCP - General Internal Medicine 11/29/19 César Leiva MD [address] [facility] [address] [place] [address] Endocrinology 05/08/20 Josephine Salomon RN [address] [facility] [place] [address] Specialty Payroll Accounting Manager Hematology/Oncology 03/04/22 Grace Bess MD [address] [place] [address] [place] [address] Physician Hematology/Oncology 03/04/22 Greta Wetzel PA-C [address] [place] [address] [place] [address] Physician Rn Office Hematology/Oncology 03/04/[address] [place] [address] [place] [address] Registered Dietitian Nutrition 06/07/23 Chicken Handler Relationship Specialty Start Date End Date Giovanni Salinas II, MD [address] [facility] [facility] [address] [place] [address] PCP - General Internal Medicine 11/29/19 César Leiva MD [address] [place] [address] Endocrinology 05/08/20 Josephine Salomon RN [address] [facility] [place] [address] Specialty Payroll Accounting Manager Hematology/Oncology 03/04/22 Grace Bess MD [address] [place] [address] [place] [address] Physician Hematology/Oncology 03/04/22 Greta Wetzel PA-C [address] [place] [address] [place] [address] Physician Rn Office Hematology/Oncology 03/04/[address] [place] [address] [place] [address] Registered Dietitian Nutrition 06/07/23 Chicken Handler Relationship Specialty Start Date End Date Giovanni Salinas II, MD [address] [address] PCP - General Internal Medicine 11/29/19 César Leiva MD [address] [place] [address] Endocrinology 05/08/20 Josephine Salomon RN [address] [facility] [place] [address] Specialty Payroll Accounting Manager Hematology/Oncology 03/04/22 Grace Bess MD [address] [place] [address] [place] [address] Physician Hematology/Oncology 03/04/22 Greta Wetzel PA-C [address] [place] [address] [place] [address] Physician Rn Office Hematology/Oncology 03/04/[address] [place] [address] [place] [address] Registered Dietitian Nutrition 06/07/23 Chicken Handler Relationship Specialty Start Date End Date Giovanni Salinas II, MD [address] [place] [address] PCP - General Internal Medicine 11/29/19 Cés[place] [address] [place] [address] [address] [place] [address] Endocrinology 05/08/20 Josephine Salomon RN [address] [facility] [place] [address] Specialty Payroll Accounting Manager Hematology/Oncology 03/04/22 Grace Bess MD [address] [place] [address] [place] [address] Physician Hematology/Oncology 03/04/22 Greta Wetzel, ALEX [address] [place] [address] [place] [address] Physician Rn Office Hematology/Oncology 03/04/[address] [facility] [place] [address] Registered Dietitian Nutrition 06/07/23 Chicken Handler Relationship Specialty Start Date End Date Giovanni Salinas II, MD [address] [place] [address] PCP - General Internal Medicine 11/29/19 César Leiva MD [address] [place] [address] Endocrinology 05/08/20 Josephine Salomon, RN [address] [facility] [place] [address] Specialty Payroll Accounting Manager Hematology/Oncology 03/04/22 Grace Bess MD [address] [place] [address] [place] [address] Physician Hematology/Oncology 03/04/22 Greta Wetzel PA-C [address] [place] [address] [place] [address] Physician Rn Office Hematology/Oncology 03/04/[address] [place] [address] [place] [address] Registered Dietitian Nutrition 06/07/23 Chicken Handler Relationship Specialty Start Date End Date Giovanni Salinas II, MD [address] [address] PCP - General Internal Medicine 11/29/19 César Leiva MD [address] [place] [address] Endocrinology 05/08/20 Josephine Salomon, RN [address] [facility] [place] [address] Specialty Payroll Accounting Manager Hematology/Oncology 03/04/22 Grace Bess MD 417 [facility] [place] [address] Physician Hematology/Oncology 03/04/22 Greta Wetzel PA-C [address] [facility] [place] [address] Physician Rn Office Hematology/Oncology 03/04/[address] [facility] [place] [address] Registered Dietitian Nutrition 06/07/23 Chicken Handler Relationship Specialty Start Date End Date Giovanni Salinas II, MD [address] [facility] [place] [address] [place] [address] PCP - General Internal Medicine 11/29/19 Cés[place] [address] [place] [address] [address] [place] [address] Endocrinology 05/08/20 Josephine Salomon RN [address] [facility] [place] [address] Specialty Payroll Accounting Manager Hematology/Oncology 03/04/22 Grace Bess MD [address] [place] [address] [place] [address] Physician Hematology/Oncology 03/04/22 Greta Wetzel PA-C [address] [place] [address] [place] [address] Physician Rn Office Hematology/Oncology 03/04/[address] [facility] [place] [address] Registered Dietitian Nutrition 06/07/23 Chicken Handler Relationship Specialty Start Date End Date Giovanni Salinas II, MD [address] [place] [address] PCP - General Internal Medicine 11/29/19 César Leiva MD [address] [place] [address] Endocrinology 05/08/20 Josephine Salomon, RN [address] [facility] [place] [address] Specialty Payroll Accounting Manager Hematology/Oncology 03/04/22 Grace Bess MD [address] [place] [address] [place] [address] Physician Hematology/Oncology 03/04/22 Greta Wetzel PA-C [address] [place] [address] [place] [address] Physician Rn Office Hematology/Oncology 03/04/[address] [place] [address] [place] [address] Registered Dietitian Nutrition 06/07/23 Chicken Handler Relationship Specialty Start Date End Date Giovanni Salinas II, MD [address] [facility] [address] [place] [address] PCP - General Internal Medicine 11/29/19 César Leiva MD [address] [place] [address] Endocrinology 05/08/20 Josephine Salomon, LUIS ANTONIO [address] [facility] [place] [address] Specialty Payroll Accounting Manager Hematology/Oncology 03/04/22 Grace Bess MD [address] [place] [address] [place] [address] Physician Hematology/Oncology 03/04/22 Greta Wetzel PA-C [address] [facility] [place] [address] Physician Rn Office Hematology/Oncology 03/04/[address] [facility] [place] [address] Registered Dietitian Nutrition 06/07/23 Chicken Handler Relationship Specialty Start Date End Date Giovanni Salinas II, MD [address] [place] [address] PCP - General Internal Medicine 11/29/19 César Leiva MD [address] [facility] [address] [place] [address] Endocrinology 05/08/20 Josephine Saloomn, RN [address] [facility] [place] [address] Specialty Payroll Accounting Manager Hematology/Oncology 03/04/22 Grace Bess MD 417 [facility] [place] [address] Physician Hematology/Oncology 03/04/22 Greta Wetzel PA-C [address] [place] [address] [place] [address] Physician Rn Office Hematology/Oncology 03/04/[address] [facility] [place] [address] Registered Dietitian Nutrition 06/07/23 Chicken Handler Relationship Specialty Start Date End Date Giovanni Salinas II, MD [address] [place] [address] PCP - General Internal Medicine 11/29/19 César Leiva MD [address] [place] [address] Endocrinology 05/08/20 Josephine Salomon, LUIS ANTONIO [address] [facility] [address] [place], [place] 1483870 Specialty Payroll Accounting Manager Hematology/Oncology 03/04/22 Grace Bess MD [address] [place] [id number] Physician Hematology/Oncology 03/04/22 Greta Wetzel PA-C [address] [place] [address] [address] [place], [place] 7756870 Physician Rn Office Hematology/Oncology 03/04/[address] [place] [address] [address] [place], [place] 5253970 Registered Dietitian Nutrition 06/07/23 Chicken Handler Relationship Specialty Start Date End Date Giovanni Salinas II, MD [address] [facility] [address] [place] [address] PCP - General Internal Medicine 11/29/19 César Leiva MD [address] [place] [address] Endocrinology 05/08/20 Josephine Salomon, LUIS ANTONIO [address] [facility] [place] [address] Specialty Payroll Accounting Manager Hematology/Oncology 03/04/22 Grace Bess MD [address] [place] [address] [place] [address] Physician Hematology/Oncology 03/04/22 Greta Wetzel PA-C [address] [place] [address] Physician Rn Office Hematology/Oncology 03/04/[address] [place] [address] Registered Dietitian Nutrition 06/07/23 Chicken Handler Relationship Specialty Start Date End Date Giovanni Salinas II, MD [address] [place] [address] PCP - General Internal Medicine 11/29/19 César Leiva MD [address] [facility] [address] [place] [address] Endocrinology 05/08/20 Josephine Salomon, RN [address] [place] [address] Specialty Payroll Accounting Manager Hematology/Oncology 03/04/22 Grace Bess MD [address] [place] [address] Physician Hematology/Oncology 03/04/22 Greta Wetzel PA-C [address] [place] [address] Physician Rn Office Hematology/Oncology 03/04/[address] [place] [address] Registered Dietitian Nutrition 06/07/23 Chicken Handler Relationship Specialty Start Date End Date Giovanni Salinas II, MD [address] [place] [address] PCP - General Internal Medicine 11/29/19 César Leiva MD [address] [place] [address] Endocrinology 05/08/20 Josephine Salomon, LUIS ANTONIO [address] [facility] [facility] [address] [place], [place] 3242270 Specialty Payroll Accounting Manager Hematology/Oncology 03/04/22 Grace Bess MD [address] [facility] [place] [address] Physician Hematology/Oncology 03/04/22 Greta Wetzel PA-C [address] [facility] [place] [address] Physician Rn Office Hematology/Oncology 03/04/[address] [facility] [address] [place], [place] 1701070 Registered Dietitian Nutrition 06/07/23 Chicken Handler Relationship Specialty Start Date End Date Giovanni Salinas II, MD [address] [facility] [address] [place] [address] PCP - General Internal Medicine 11/29/19 César Leiva MD [address] [place] [address] Endocrinology 05/08/20 Josephine Salomon, LUIS ANTONIO [address] [facility] [place] [address] Specialty Payroll Accounting Manager Hematology/Oncology 03/04/22 Grace Bess MD [address] [facility] [place] [address] Physician Hematology/Oncology 03/04/22 Greta Wetzel PA-C [address] [facility] [place] [address] Physician Rn Office Hematology/Oncology 03/04/[address] [facility] [place] [address] Registered Dietitian Nutrition 06/07/23 Chicken Handler Relationship Specialty Start Date End Date Giovanni Salinas II, MD [address] [place] [address] PCP - General Internal Medicine 11/29/19 César Leiva MD [address] [facility] [address] [place] [address] Endocrinology 05/08/20 Josephine Salomon, RN [address] [facility] [place] [address] Specialty Payroll Accounting Manager Hematology/Oncology 03/04/22 Grace Bess MD [address] [facility] [place] [place] [address] Physician Hematology/Oncology 03/04/22 Greta Wetzel PA-C [address] [facility] [place] [address] Physician Rn Office Hematology/Oncology 03/04/[address] [facility] [place] [address] Registered Dietitian Nutrition 06/07/23 Chicken Handler Relationship Specialty Start Date End Date Giovanni Salinas II, MD [address] [place] [address] PCP - General Internal Medicine 11/29/19 César Leiva MD [address] [place] [address] Endocrinology 05/08/20 Josephine Salomon RN [address] [facility] [place] [address] Specialty Payroll Accounting Manager Hematology/Oncology 03/04/22 Grace Bess [address] [facility] [place] [address] Physician Hematology/Oncology 03/04/22 Greta Wetzel PA-C [address] [facility] [place] [address] Physician Rn Office Hematology/Oncology 03/04/[address] [place] [address] [place] [address] Registered Dietitian Nutrition 06/07/23 Chicken Handler Relationship Specialty Start Date End Date Giovanni Salinas II, MD [address] [place] [address] PCP - General Internal Medicine 11/29/19 César Leiva MD [address] [place] [address] Endocrinology 05/08/20 Josephine Salomon RN [address] [facility] [address] [place], [place] 5123570 Specialty Payroll Accounting Manager Hematology/Oncology 03/04/22 Grace Bess MD [address] [facility] [place], [place] 3795870 Physician Hematology/Oncology 03/04/22 Greta Wetzel PA-C [address] [facility] [place] [address] Physician Rn Office Hematology/Oncology 03/04/[address] [facility] [place] [address] Registered Dietitian Nutrition 06/07/23 Chicken Handler Relationship Specialty Start Date End Date Giovanni Salinas II, MD [address] [place] [address] PCP - General Internal Medicine 11/29/19 César Leiva MD [address] [facility] [address] [place], [place] 636[address]70 Endocrinology 05/08/20 Josephine Salomon, RN [address] [facility] [address] [place], [place] 1348770 Specialty Payroll Accounting Manager Hematology/Oncology 03/04/22 Grace Bess MD 417 [facility] [place] [address] Physician Hematology/Oncology 03/04/22 Greta Wetzel PA-C [address] [facility] [place] [address] Physician Rn Office Hematology/Oncology 03/04/[address] [facility] [place] [address] Registered Dietitian Nutrition 06/07/23 Chicken Handler Relationship Specialty Start Date End Date Giovanni Salinas II, MD [address] [place] [address] PCP - General Internal Medicine 11/29/19 César Leiva MD [address] [place] [address] Endocrinology 05/08/20 Josephine Salomon, RN [address] [facility] [place] [address] Specialty Payroll Accounting Manager Hematology/Oncology 03/04/22 Greta Wetzel PA-C [address] [facility] [place] [address] Physician Rn Office Hematology/Oncology 03/04/[address] [facility] [place] [address] Registered Dietitian Nutrition 06/07/23 Vivek Smith MD [address] [place] [address] [place] [address] Physician Hematology 12/11/23 Chicken Handler Relationship Specialty Start Date End Date Giovanni Salinas II, MD [address] [facility] [address] [place] [address] PCP - General Internal Medicine 11/29/19 César Leiva MD [address] [place] [address] Endocrinology 05/08/20 Josephine Salomon, RN [address] [facility] [place] [address] Specialty Payroll Accounting Manager Hematology/Oncology 03/04/22 Greta Wetzel PA-C [address] [facility] [place] [address] Physician Rn Office Hematology/Oncology 03/04/[address] [facility] [place] [address] Registered Dietitian Nutrition 06/07/23 Vivek Smith MD [address] [facility] [place] [address] Physician Hematology 12/11/23 Chicken Handler Relationship Specialty Start Date End Date Giovanni Salinas II, MD [address] [place] [address] PCP - General Internal Medicine 11/29/19 César Leiva MD [address] [facility] [address] [place] [address] Endocrinology 05/08/20 Josephine Salomon, RN [address] [facility] [place] [address] Specialty Payroll Accounting Manager Hematology/Oncology 03/04/22 Greta Wetzel, ALEX [address] [facility] [place] [address] Physician Rn Office Hematology/Oncology 03/04/[address] [facility] [place] [address] Registered Dietitian Nutrition 06/07/23 Vivek Smith MD [address] [facility] [place] [address] Physician Hematology 12/11/23 Chicken Handler Relationship Specialty Start Date End Date Giovanni Salinas II, MD [address] [place] [address] PCP - General Internal Medicine 11/29/19 César Leiva MD [address] [place] [address] Endocrinology 05/08/20 Josephine Salomon, LUIS ANTONIO [address] [facility] [place] [address] Specialty Payroll Accounting Manager Hematology/Oncology 03/04/22 Greta Wetzel PA-C [address] [place] [address] [address] [place], [place] [phone] Physician Rn Office Hematology/Oncology 03/04/[address] [facility] [place] [address] Registered Dietitian Nutrition 06/07/23 Vivek Smith MD [address] [place] [address] [place] [address] Physician Hematology 12/11/23 Chicken Handler Relationship Specialty Start Date End Date Giovanni Salinas II, MD [address] [place] [address] PCP - General Internal Medicine 11/29/19 César Leiva MD [address] [place] [address] Endocrinology 05/08/20 Josephine Salomon, LUIS ANTONIO [address] [facility] [place] [address] Specialty Payroll Accounting Manager Hematology/Oncology 03/04/22 Greta Wetzel PA-C [address] [facility] [address] [place], [place] 4107470 Physician Rn Office Hematology/Oncology 03/04/[address] [place] [address] [place] [address] Registered Dietitian Nutrition 06/07/23 Vivek Smith MD [address] [place] [address] [place] [address] Physician Hematology 12/11/23 Chicken Handler Relationship Specialty Start Date End Date Giovanni Salinas II, MD [address] [place] [address] PCP - General Internal Medicine 11/29/19 César Leiva MD [address] [facility] [address] [place] [address] Endocrinology 05/08/20 Josephine Salomon, RN [address] [facility] [place] [address] Specialty Payroll Accounting Manager Hematology/Oncology 03/04/22 Greta Wetzel, LEONC [address] [place] [address] [place] [address] Physician Rn Office Hematology/Oncology 03/04/[address] [place] [address] [place] [address] Registered Dietitian Nutrition 06/07/23 Vivek Smith MD [address] [facility] [place] [address] Physician Hematology 12/11/23 Chicken Handler Relationship Specialty Start Date End Date Giovanni Salinas II, MD [address] [place] [address] PCP - General Internal Medicine 11/29/19 César Leiva MD [address] [place] [address] Endocrinology 05/08/20 Josephine Salomon, LUIS ANTONIO [address] [facility] [place] [address] Specialty Payroll Accounting Manager Hematology/Oncology 03/04/22 Greta Wetzel PA-C [address] [facility] [address] [place], [place] 7[address]70 Physician Rn Office Hematology/Oncology 03/04/[address] [facility] [place] [address] Registered Dietitian Nutrition 06/07/23 Vivek Smith MD [address] [place] [address] [place] [address] Physician Hematology 12/11/23 Chicken Handler Relationship Specialty Start Date End Date Giovanni Salinas II, MD [address] [facility] [address] [place] [address] PCP - General Internal Medicine 11/29/19 César Leiva MD [address] [place] [address] Endocrinology 05/08/20 Josephine Salomon RN [address] [facility] [place] [address] Specialty Payroll Accounting Manager Hematology/Oncology 03/04/22 Greta Wetzel PA-C [address] [facility] [address] [place], [place] 8315270 Physician Rn Office Hematology/Oncology 03/04/[address] [facility] [place] [address] Registered Dietitian Nutrition 06/07/23 Vivek Smith MD [address] [place] [address] [place] [address] Physician Hematology 12/11/23 Chicken Handler Relationship Specialty Start Date End Date Giovanni Salinas II, MD [address] [place] [address] PCP - General Internal Medicine 11/29/19 César Leiva MD [address] [facility] [address] [place] [address] Endocrinology 05/08/20 Josephine Salomon, RN [address] [facility] [place] [address] Specialty Payroll Accounting Manager Hematology/Oncology 03/04/22 Greta Wetzel PA-C [address] [place] [address] [place] [address] Physician Rn Office Hematology/Oncology 03/04/[address] [place] [address] [place] [address] Registered Dietitian Nutrition 06/07/23 Vivek Smith MD [address] [place] [address] [place] [address] Physician Hematology 12/11/23 Chicken Handler Relationship Specialty Start Date End Date Giovanni Salinas II, MD [address] [place] [address] PCP - General Internal Medicine 11/29/19 César Leiva MD [address] [place] [address] Endocrinology 05/08/20 Josephine Salomon, LUIS ANTONIO [address] [facility] [facility] [place] [address] Specialty Payroll Accounting Manager Hematology/Oncology 03/04/22 Greta Wetzel PA-C [address] [facility] [address] [place], [place] 8195270 Physician Rn Office Hematology/Oncology 03/04/[address] [facility] [place] [address] Registered Dietitian Nutrition 06/07/23 Vivek Smith MD [address] [place] [address] [place] [address] Physician Hematology 12/11/23 Chicken Handler Relationship Specialty Start Date End Date Giovanni Salinas II, MD [address] [facility] [address] [place] [address] PCP - General Internal Medicine 11/29/19 César Leiva MD [address] [place] [address] Endocrinology 05/08/20 Josephine Salomon, LUIS ANTONIO [address] [facility] [place] [address] Specialty Payroll Accounting Manager Hematology/Oncology 03/04/22 Greta Wetzel PA-C [address] [facility] [address] [place], [place] 5045870 Physician Rn Office Hematology/Oncology 03/04/[address] [facility] [place] [address] Registered Dietitian Nutrition 06/07/23 Vivek Smith MD [address] [facility] [place] [address] Physician Hematology 12/11/23 Chicken Handler Relationship Specialty Start Date End Date Giovanni Salinas II, MD [address] [place] [address] PCP - General Internal Medicine 11/29/19 César Leiva MD [address] [facility] [address] [place] [address] Endocrinology 05/08/20 Josephine Salomon, LUIS ANTONIO [address] [facility] [place] [address] Specialty Payroll Accounting Manager Hematology/Oncology 03/04/22 Greta Wetzel PA-C [address] [place] [address] [place] [address] Physician Rn Office Hematology/Oncology 03/04/[address] [facility] [place] [address] Registered Dietitian Nutrition 06/07/23 Vivek Smith MD [address] [facility] [place] [address] Physician Hematology 12/11/23 Chicken Handler Relationship Specialty Start Date End Date Giovanni Salinas II, MD [address] [place] [address] PCP - General Internal Medicine 11/29/19 César Leiva MD [address] [place] [address] Endocrinology 05/08/20 Josephine Salomon, RN [address] [facility] [place] [address] Specialty Payroll Accounting Manager Hematology/Oncology 03/04/22 Greta Wetzel PA-C [address] [facility] [place] [address] Physician Rn Office Hematology/Oncology 03/04/[address] [facility] [place] [address] Registered Dietitian Nutrition 06/07/23 Vivek Smith MD [address] [place] [address] [place] [address] Physician Hematology 12/11/23 Chicken Handler Relationship Specialty Start Date End Date Giovanni Salinas II, MD [address] [facility] [address] [place] [address] PCP - General Internal Medicine 11/29/19 César Leiva MD [address] [place] [address] Endocrinology 05/08/20 Josephine Salomon, LUIS ANTONIO [address] [facility] [place] [address] Specialty Payroll Accounting Manager Hematology/Oncology 03/04/22 Grace Bess MD [address] [facility] [place] [address] Physician Hematology/Oncology 03/04/22 12/10/23 Greta Wetzel PA-C [address] [facility] [place] [address] Physician Rn Office Hematology/Oncology 03/04/[address] [facility] [place] [address] Registered Dietitian Nutrition 06/07/23 Chicken Handler Relationship Specialty Start Date End Date Giovanni Salinas II, MD [address] [place] [address] PCP - General Internal Medicine 11/29/19 César Leiva MD [address] [facility] [address] [place] [address] Endocrinology 05/08/20 Josephine Salomon, RN [address] [facility] [place] [address] Specialty Payroll Accounting Manager Hematology/Oncology 03/04/22 Grace Bess MD [address] [facility] [place] [address] Physician Hematology/Oncology 03/04/22 12/10/23 Greta Wetzel PA-C [address] [place] [address] [place] [address] Physician Rn Office Hematology/Oncology 03/04/[address] [facility] [place] [address] Registered Dietitian Nutrition 06/07/23 Chicken Handler Relationship Specialty Start Date End Date Giovanni Salinas II, MD [address] [place] [address] PCP - General Internal Medicine 11/29/19 César Leiva MD [address] [place] [address] Endocrinology 05/08/20 Josephine Salomon, RN [address] [facility] [place] [address] Specialty Payroll Accounting Manager Hematology/Oncology 03/04/22 Grace Bess MD [address] [place] [address] [place] [address] Physician Hematology/Oncology 03/04/22 12/10/23 Greta Wetzel PA-C [address] [facility] [place] [address] Physician Rn Office Hematology/Oncology 03/04/[address] [place] [address] [place] [address] Registered Dietitian Nutrition 06/07/23 Chicken Handler Relationship Specialty Start Date End Date Giovanni Salinas II, MD [address] [facility] [address] [place] [address] PCP - General Internal Medicine 11/29/19 César Leiva MD [address] [place] [address] Endocrinology 05/08/20 Josephine Salomon, RN [address] [facility] [place] [address] Specialty Payroll Accounting Manager Hematology/Oncology 03/04/22 Grace Bess MD [address] [place], [place] [address]ry [facility] [place] [address] Physician Hematology/Oncology 03/04/22 12/10/23 Greta Wetzel PA-C [address] [place] [address] [place] [address] Physician Rn Office Hematology/Oncology 03/04/22 Chicken Handler Relationship Specialty Start Date End Date Giovanni Salinas II, MD [address] [facility] [address] [place] [address] PCP - General Internal Medicine 11/29/19 César Leiva MD [address] [place] [address] Endocrinology 05/08/20 Josephine Salomon RN [address] [facility] [place] [address] Specialty Payroll Accounting Manager Hematology/Oncology 03/04/22 Grace Bess MD [address] [place] [address] [place] [address] Physician Hematology/Oncology 03/04/22 12/10/23 Greta Wetzel PA-C [address] [place] [address] [place] [address] Physician Rn Office Hematology/Oncology 03/04/22 Chicken Handler Relationship Specialty Start Date End Date Giovanni Salinas II, MD [address] [place] [facility] [address] [place] [address] PCP - General Internal Medicine 11/29/19 César Leiva MD [address] [place] [address] Endocrinology 05/08/20 Josephine Salomon RN [address] [facility] [place] [address] Specialty Payroll Accounting Manager Hematology/Oncology 03/04/22 Grace Bess MD 417 [place] [address] Physician Hematology/Oncology 03/04/22 12/10/23 Greta Wetzel PA-C [address] [place] [address] [place] [address] Physician Rn Office Hematology/Oncology 03/04/22 Chicken Handler Relationship Specialty Start Date End Date Giovanni Salinas II, MD [address] [address] PCP - General Internal Medicine 11/29/19 César Leiva MD [address] [place] [address] Endocrinology 05/08/20 Josephine Salomon RN [address] [facility] [place] [address] Specialty Payroll Accounting Manager Hematology/Oncology 03/04/22 Grace Bess MD [address] [place] [address] Physician Hematology/Oncology 03/04/22 12/10/23 Greta Wetzel PA-C [address] [place] [address] [place] [address] Physician Rn Office Hematology/Oncology 03/04/22 Chicken Handler Relationship Specialty Start Date End Date Giovanni Salinas II, MD [address] [place] [address] PCP - General Internal Medicine 11/29/19 César Leiva MD [address] [place] [address] Endocrinology 05/08/20 Josephine Salomon, RN [address] [facility] [place] [address] Specialty Payroll Accounting Manager Hematology/Oncology 03/04/22 Greta Wetzel PA-C [facility] [address] [place], [place] [address] Physician Rn Office Hematology/Oncology 03/04/[address] [place] [address] [place] [address] Registered Dietitian Nutrition 06/07/23 Vivek Smith MD [address] [place] [address] [place] [address] Physician Hematology 12/11/23 Chicken Handler Relationship Specialty Start Date End Date Giovanni Salinas II, MD [address] [facility] [address] [place] [address] PCP - General Internal Medicine 11/29/19 César Leiva MD [address] [place] [address] Endocrinology 05/08/20 Josephine Salomon, RN [address] [facility] [place] [address] Specialty Payroll Accounting Manager Hematology/Oncology 03/04/22 Grace Bess MD [address] [place] [address] [place] [address] Physician Hematology/Oncology 03/04/22 12/10/23 Greta Wetzel PA-C [address] [place] [address] [place] [address] Physician Rn Office Hematology/Oncology 03/04/22 Chicken Handler Relationship Specialty Start Date End Date Giovanni Salinas II, MD [address] [place] [address] PCP - General Internal Medicine 11/29/19 César Leiva MD [address] [place] [address] Endocrinology 05/08/20 Chicken Handler Relationship Specialty Start Date End Date Giovanni Salinas MD [address] [place] [address] PCP - General Internal Medicine 10/20/22 Giovanni Salinas MD [address] [place] [address] PCP - ACO Reach 09/20/23MondayKatie LPN [address] [place] [address] Licensed Practical Nurse Family Medicine 11/02/23 Chicken Handler Relationship Specialty Start Date End Date Giovanni Salinas II, MD [address] [place] [address] PCP - General Internal Medicine 11/29/19 César Leiva MD [address] [place] [address] Endocrinology 05/08/20 Josephine Salomon RN [address] [facility] [place] [address] Specialty Payroll Accounting Manager Hematology/Oncology 03/04/22 Greta Wetzel PA-C [address] [place] [address] [place] [address] Physician Rn Office Hematology/Oncology 03/04/[address] [place] [address] [place] [address] Registered Dietitian Nutrition 06/07/23 Vivek Smith MD [address] [place] [address] [place] [address] Physician Hematology 12/11/23 Chicken Handler Relationship Specialty Start Date End Date Giovanni Salinas II, MD [address] [facility] [address] [place] [address] PCP - General Internal Medicine 11/29/19 César Leiva MD [address] [place] [address] Endocrinology 05/08/20 Josephine Salomon RN [address] [facility] [place] [address] Specialty Payroll Accounting Manager Hematology/Oncology 03/04/22 Greta Wetzel PA-C [address] [place] [address] [place] [address] Physician Rn Office Hematology/Oncology 03/04/[address] [place] [address] [place] [address] Registered Dietitian Nutrition 06/07/23 Vivek Smith MD [address] [facility] [place] [address] Physician Hematology 12/11/23 Chicken Handler Relationship Specialty Start Date End Date Giovanni Salinas II, MD [address] [place] [address] PCP - General Internal Medicine 11/29/19 César Leiva MD [address] [facility] [address] [place] [address] Endocrinology 05/08/20 Josephine Salomon, RN [address] [facility] [place] [address] Specialty Payroll Accounting Manager Hematology/Oncology 03/04/22 Greta Wetzel PA-C [address] [facility] [place] [address] Physician Rn Office Hematology/Oncology 03/04/[address] [facility] [place] [address] Registered Dietitian Nutrition 06/07/23 Vivek Smith MD [address] [facility] [place] [address] Physician Hematology 12/11/23 Chicken Handler Relationship Specialty Start Date End Date Giovanni Salinas MD [address] [place] [address] PCP - General Internal Medicine 10/20/22 Giovanni Salinas MD [address] [place] [address] PCP - ACO Reach 09/20/23 Rajesh, Katie, ZOOKEEPER [address] [place] [address] Licensed Practical Nurse Family Medicine 11/02/23 Chicken Handler Relationship Specialty Start Date End Date Giovanni Salinas II, MD [address] [place] [address] PCP - General Internal Medicine 11/29/19 César Leiva MD [address] [place] [address] Endocrinology 05/08/20 Josephine Salomon, RN [address] [facility] [place] [address] Specialty Payroll Accounting Manager Hematology/Oncology 03/04/22 Greta Wetzel PA-C [address] [facility] [place] [address] Physician Rn Office Hematology/Oncology 03/04/[address] [facility] [place] [address] Registered Dietitian Nutrition 06/07/23 Vivek Smith MD [address] [facility] [place] [address] Physician Hematology 12/11/23 Chicken Handler Relationship Specialty Start Date End Date Giovanni Salinas II, MD [address] [facility] [address] [place] [address] PCP - General Internal Medicine 11/29/19 César Leiva MD [address] [place] [address] Endocrinology 05/08/20 Josephine Salomon RN [address] [facility] [place] [address] Specialty Payroll Accounting Manager Hematology/Oncology 03/04/22 Greta Wetzel PA-C [address] [facility] [place] [address] Physician Rn Office Hematology/Oncology 03/04/[address] [place] [address] [place] [address] Registered Dietitian Nutrition 06/07/23 Vivek Smith MD [address] [place] [address] [place] [address] Physician Hematology 12/11/23 Chicken Handler Relationship Specialty Start Date End Date Giovanni Salinas II, MD [address] [facility] [address] [place] [address] PCP - General Internal Medicine 11/29/19 César Leiva MD [address] [facility] [address] [place] [address] Endocrinology 05/08/20 Josephine Salomon RN [address] [facility] [place] [address] Specialty Payroll Accounting Manager Hematology/Oncology 03/04/22 Greta Wetzel PA-C [address] [place] [address] [place] [address] Physician Rn Office Hematology/Oncology 03/04/[address] [place] [address] [place] [address] Registered Dietitian Nutrition 06/07/23 Vivek Smith MD [address] [place] [address] [place] [address] Physician Hematology 12/11/23 Chicken Handler Relationship Specialty Start Date End Date Giovanni Salinas MD [address] [place] [address] PCP - General Internal Medicine 10/20/22 Giovanni Salinas MD [address] [place] [address] PCP - ACO Reach 09/20/23MondayKatie LPN [address] [place] [address] Licensed Practical Nurse Family Medicine 11/02/23 Chicken Handler Relationship Specialty Start Date End Date Giovanni Salinas MD [address] [place] [address] PCP - General Internal Medicine 10/20/22 Giovanni Salinas MD [address] [place] [address] PCP - ACO Reach 09/20/23MondayKatie LPN [address] [place] [address] Licensed Practical Nurse Family Medicine 11/02/23 Goals (unrecognized section and content) Goals may [...] BE BASED ON THE PRIMARY CLINICAL RECORDS. [email or web address] provides no warranty or guarantee of the accuracy or completeness of information in this document.
--- NOTE | 2024-04-10 20:27 | CT_ITS ---
The [address] [address] Patient Name: TRINITY PERRY MRN: [id number] date: 1950 Sex: M Assigned Patient Location: ER Current Patient Location: Accession/Order Number: [id number] Exam Date: 04/10/2024 21:08 Report Date: 04/10/2024 23:44 At the request of: VAISHNAVI TRENT Procedure: CT abdomen pelvis w con CT CHEST, ABDOMEN AND PELVIS WITH CONTRAST HISTORY: Abdominal pain. Pneumonia. Weakness. Pancreatic cancer. COMPARISON: Chest x-ray 03/24/2004. METHOD: Dose reduction techniques were achieved by using automated exposure control and/or adjustment of mA and/or kV according to patient size and/or use of iterative reconstruction technique. FINDINGS: CT CHEST: There is no evidence of mediastinal or hilar noncalcified lymph nodes. The esophagus is normal appearing. There is no pericardial effusion. The major airways are patent. There are no focal consolidations. There is minimal left basilar atelectasis. There are no pleural effusions. There is no pneumothorax. There are no acute bony abnormalities. CT ABDOMEN AND PELVIS: There is no intrahepatic mass or intrahepatic biliary ductal dilatation. There is periportal edema. The and stomach are normal appearing. The pancreatic head is been removed. There is mild dilatation of the ectatic duct measuring 4 mm. The spleen is normal in size. The adrenal glands are normal appearing. There is no hydronephrosis. There are bilateral renal cysts. There is a left renal stone. There are dilated loops of small bowel jejunum, at the transition point in the left upper quadrant is the appearance of a stent-like device with an associated hyperdensity(axial image 43)a. There is also abnormal circumferential thickening in the jejunum just proximal to the obstruction as well as possible air within the wall of the dilated small bowel. There is also associated mesenteric stranding. There are partially calcified enlarged periaortic lymph nodes with a conglomerate of lymph nodes measuring 3.4 x 3.4 cm. There are also aortocaval partially calcified enlarged lymph nodes There is a very small amount of free fluid in the pelvis. The prostate is enlarged. The appendix has a fat-containing structure measures 1.3 x 2.2 cm. There is no right lower quadrant inflammatory stranding. There are no acute bony abnormalities. CT/CT abdomen pelvis w con IMPRESSION: Jejunal small bowel obstruction which appears to be caused by a stent-like device(such as a biliary stent). There is a suggestion of associated hematoma/inflammatory reaction at the site of obstruction. There is also abnormal bowel wall thickening, mesenteric edema and possible air within the wall of the small bowel proximal to the obstruction which raises the possibility of ischemia. Recommend emergent surgical consult. Partially calcified retroperitoneal lymph nodes. Differential diagnosis includes metastatic disease, treated lymphoma, neuroendocrine tumor and granulomatous disease. 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 Small amount of free fluid in pelvis. Left renal stone. Prostamegaly. Periportal edema. CRITICAL RESULTS REPORTING: These results were called by myself and discussed with Diego Perla at the time of the interpretation 04/10/2024 8:36 PM PST. Electronically authenticated by: FRANCISCO SRINIVASAN Date: 04/10/2024 23:44
--- NOTE | 2024-04-10 20:28 | ED_ITS ---
Documented by User: Monica Bello 04/10/24 22:07 HPI - Abdominal Pain General Chief Complaint: Abdominal Pain Stated Complaint: vomiting Time Seen by Provider: 04/10/24 20:23 Source: patient Mode of arrival: Wheelchair Limitations: no limitations History of Present Illness HPI narrative: 73 year old male presents to the ED for LLQ pain. It has been intermittent for some time, but became worse today. Reports nausea for 2-3 days with two episodes of emesis this afternoon. Denies fever, chills, diarrhea, urinary sx. He has pancreatic cancer with chemotherapy every 3 weeks. Related Data Home Medications ?Medication ?Instructions ?Recorded ?Confirmed finasteride 5 mg tablet 5 mg PO QAM 10/16/23 04/10/24 pantoprazole 20 mg tablet,delayed 20 mg PO DAILY 10/16/23 04/10/24 release tamsulosin 0.4 mg capsule 0.4 mg PO DAILY 10/16/23 04/10/24 Allergies Allergy/AdvReac Type Severity Reaction Status Date / Time No Known Drug Allergies Allergy Verified 04/10/24 20:21 Review of Systems ROS Constitutional Denies: fever or chills Ears, nose, mouth, and throat Denies: throat pain or neck pain Cardiovascular Denies: chest pain Respiratory Denies: shortness of breath or cough Gastrointestinal Reports: abdominal pain, nausea and vomiting; Denies: diarrhea or constipation Genitourinary Denies: painful urination, urinary frequency, urinary urgency or blood in urine Musculoskeletal Denies: back pain or neck pain Integumentary/Breast Denies: rash Neurological Denies: headache or dizziness [facility] Medical History (Updated 04/11/24 @ 01:28 by ) 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 (ICD-10) ?T45.1X5A - Adverse effect of antineoplastic and immunosuppressive drugs, initial encounter (ICD-10) ?Z79.899 - Other penitentiary (current) drug therapy (ICD-10) LLL pneumonia ?J18.9 - Pneumonia, unspecified organism (ICD-10) BPH (benign prostatic hyperplasia) ?N40.0 - Benign prostatic hyperplasia without lower urinary tract symptoms (ICD-10) GERD (gastroesophageal reflux disease) ?K21.9 - Gastro-esophageal reflux disease without esophagitis (ICD-10) Pancreatic cancer ?C25.9 - Malignant neoplasm of pancreas, unspecified (ICD-10) Diabetes ?E11.9 - Type 2 diabetes mellitus without complications (ICD-10) Surgical History Port-A-Cath in place ?Z95.828 - Presence of other vascular implants and grafts (ICD-10) 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 Smoking status: Former smoker Non-prescribed substance use: denies use Previous occupational history: Retired, [employer] Highest level of school completed/degree received: high school graduate Are you now , , , , never or living with a partner: In a typical week, how many times do you talk on the telephone with family, friends, or neighbors: 3 or more times per week How often do you get together with friends or relatives: 3 or more times per week Little interest or pleasure in doing things: not at all Feeling down, depressed, or hopeless: not at all Feel stressed/tense/nervous/anxious/difficulty sleeping: not at all Exam Constitutional Vital Signs, click to edit/add: Last Vital Signs Temp 97.8 F 04/10/24 20:13 Pulse 84 04/11/24 12:02 Resp 16 04/11/24 12:02 BP 96/64 04/12/24 10:00 Pulse Ox 95 04/12/24 10:30 O2 Del Method Room Air 04/11/24 12:02 Common normals: no apparent distress and oriented x3 General appearance: cooperative HENMT Common normals: normocephalic Mouth: lip normal and moist mucous membranes abnormal (Dry) Throat: uvula midline Eye Common normals: conjunctivae normal and no scleral icterus Neck & C-Spine Common normals: supple Chest Chest: symmetrical chest wall rise Respiratory Common normals: normal respiratory effort Effort & inspection: able to speak in complete sentences and symmetric chest movement Cardio Common normals: regular rate and regular rhythm GI Common normals: Normal to inspection, nondistended, normoactive bowel sounds present and soft to palpation Palpation: tender Details: RLQ and RUQ Neuro Common normals: oriented x3 and moves all extremities Sensorium/orientation: awake and alert Speech: speech normal Course Vital Signs Vital signs: Vital Signs Temperature 97.8 F 04/10/24 20:13 Pulse Rate 77 04/10/24 20:13 Respiratory Rate 18 04/10/24 20:13 Blood Pressure 143/83 H 04/10/24 20:13 Pulse Oximetry 100 04/10/24 20:13 Oxygen Delivery Method Room Air 04/10/24 20:13 Temperature 97.8 F 04/10/24 20:13 Pulse Rate 84 04/11/24 12:02 Respiratory Rate 16 04/11/24 12:02 Blood Pressure 96/64 04/12/24 10:00 Pulse Oximetry 95 04/12/24 10:30 Oxygen Delivery Method Room Air 04/11/24 12:02 MDM - Abdominal Pain MDM Narrative Medical decision making narrative: WBC count was 18.3. CT scan was pending. Care was resumed to Dr. Perla. See his dictation for further evaluation and treatment. Medical Records Attestation: I reviewed the patient's medical records. Lab Data Attestation: I reviewed the patient's lab results. Labs: Lab Results 04/10/24 04/11/24 04/12/24 Range/Units 20:40 00:39 07:15 WBC 18.3 H 9.8 (4.0-11.0) 10^3/uL RBC 3.71 L 3.06 L (4.70-6.10) 10^6/uL Hgb 11.1 L 9.2 L (14.0-18.0) g/dL Hct 33.4 L 28.0 L (42.0-54.0) % MCV 90.0 91.5 (80.0-94.0) fL MCH 29.9 30.1 (25.9-34.0) pg MCHC 33.2 32.9 (29.9-35.2) g/dL RDW 15.8 H 16.5 H (11.0-15.0) % Plt Count 308 245 (150-450) 10^3/uL MPV 9.6 9.1 L (9.5-13.5) fL Neut % (Auto) 91.7 H 84.7 H (43.0-75.0) % Lymph % (Auto) 5.3 L 10.3 L (20.5-60.0) % [place] % (Auto) 2.1 4.2 (1.7-12.0) % Eos % (Auto) 0.1 L 0.3 L (0.9-7.0) % Baso % (Auto) 0.1 L 0.1 L (0.2-2.0) % Neut # (Auto) 16.8 H 8.3 H (1.4-6.5) 10^3/uL Lymph # (Auto) 1.0 L 1.0 L (1.2-3.8) 10^3/uL [place] # (Auto) 0.4 0.4 (0.3-0.8) 10^3/uL Eos # (Auto) 0.0 0.0 (0.0-0.7) 10^3/uL Baso # (Auto) 0.0 0.0 (0.0-0.1) 10^3/uL Abs Immat Gran (auto) 0.13 H 0.04 H (0.00-0.03) 10^3/uL Imm/Tot Granulo (auto) 0.7 H 0.4 (0.0-0.5) % Sodium 129 L 130 L (136-145) mmol/L Potassium 4.7 4.0 (3.5-5.1) mmol/L Chloride 96 L 99 (98-107) mmol/L Carbon Dioxide 20.9 L 24.6 (21.0-32.0) mmol/L Anion Gap 16.8 10.4 BUN 17.0 11.0 (7.0-18.0) mg/dL Creatinine 0.93 0.85 (0.70-1.30) mg/dL Est GFR ( Amer) >60 >60 (>=60 mL/min/1.73m^2) Est GFR (Non-Af Amer) >60 >60 (>=60 mL/min/1.73m^2) BUN/Creatinine Ratio 18.3 12.9 Glucose 193 H 181 H (74-106) mg/dL Lactate 2.1 H 1.3 (0.4-2.0) mmol/L Calcium 10.2 H 9.0 (8.5-10.1) mg/dL Total Bilirubin 1.5 H 1.1 H (0.2-1.0) mg/dL AST 22 13 L (15-37) U/L ALT 17 21 (16-63) U/L Alkaline Phosphatase 144 H 107 (46-116) U/L Total Protein 6.4 5.0 L (6.4-8.2) g/dL Albumin 3.0 L 2.1 L (3.4-5.0) g/dL Globulin 3.4 2.9 g/dL Albumin/Globulin Ratio 0.9 0.7 Lipase 34.0 (16.0-77.0) U/L Urine Color Yellow (YELLOW) Urine Clarity Clear (CLEAR) Urine pH 5.5 (5.0-9.0) Ur Specific [place] 1.010 (1.005-1.025) Urine Protein Negative (NEG/TRACE) mg/dL Urine Glucose (UA) Negative (NEGATIVE) mg/dL Urine Ketones Negative (NEGATIVE) mg/dL Urine Occult Blood Negative (NEGATIVE) Urine Nitrite Negative (NEGATIVE) Urine Bilirubin Negative (NEGATIVE) Urine Urobilinogen 0.2 (0.2-1.0) EU/dL Ur Leukocyte Esterase Negative (NEGATIVE) Imaging Data CT scan - abdomen: Radiologist's impression: ITS Impressions Abdomen/Pelvis CT 04/10/24 20:27 IMPRESSION: Jejunal small bowel obstruction which appears to be caused by a stent-like device(such as a biliary stent). There is a suggestion of associated hematoma/inflammatory reaction at the site of obstruction. There is also abnormal bowel wall thickening, mesenteric edema and possible air within the wall of the small bowel proximal to the obstruction which raises the possibility of ischemia. Recommend emergent surgical consult. Partially calcified retroperitoneal lymph nodes. Differential diagnosis includes metastatic disease, treated lymphoma, neuroendocrine tumor and granulomatous disease. 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 Small amount of free fluid in pelvis. Left renal stone. Prostamegaly. Periportal edema. CRITICAL RESULTS REPORTING: These results were called by myself and discussed with Diego Perla at the time of the interpretation 04/10/2024 8:36 PM PST. Electronically authenticated by: FRANCISCO SRINIVASAN Date: 04/10/2024 23:[address] 04/10/24 20:46 IMPRESSION: Jejunal small bowel obstruction which appears to be caused by a stent-like device(such as a biliary stent). There is a suggestion of associated hematoma/inflammatory reaction at the site of obstruction. There is also abnormal bowel wall thickening, mesenteric edema and possible air within the wall of the small bowel proximal to the obstruction which raises the possibility of ischemia. Recommend emergent surgical consult. Partially calcified retroperitoneal lymph nodes. Differential diagnosis includes metastatic disease, treated lymphoma, neuroendocrine tumor and granulomatous disease. 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 Small amount of free fluid in pelvis. Left renal stone. Prostamegaly. Periportal edema. CRITICAL RESULTS REPORTING: These results were called by myself and discussed with Diego Perla at the time of the interpretation 04/10/2024 8:36 PM PST. Electronically authenticated by: FRANCISCO SRINIVASAN Date: 04/10/2024 23:44 Chest X-Ray 04/11/24 00:55 IMPRESSION: 1. A nasogastric tube terminates in the proximal stomach with the side-port near the gastroesophageal junction. Recommend advancement. Electronically authenticated by: Zayda OKEEFE Date: 04/11/2024 02:04 Chest X-Ray 04/11/24 02:09 IMPRESSION: 1. A nasogastric tube terminates in the left upper quadrant, likely within the stomach. 2. Medial bibasilar opacities could represent atelectasis and/or aspiration changes. Electronically authenticated by: Zayda OKEEFE Date: 04/11/2024 02:48 Discharge Plan Discharge Chief Complaint: Abdominal Pain Clinical Impression: Small bowel obstruction Patient Disposition: [facility] Time of Disposition Decision: 00:01 Discharge location: [facility] Condition: Fair Mode of Transportation: EMS Documented by User: Diego Perla MD 04/12/24 06:09 HPI - Abdominal Pain General Chief Complaint: Abdominal Pain Stated Complaint: vomiting Time Seen by Provider: 04/10/24 20:23 Related Data Home Medications ?Medication ?Instructions ?Recorded ?Confirmed finasteride 5 mg tablet 5 mg PO QAM 10/16/23 04/10/24 pantoprazole 20 mg tablet,delayed 20 mg PO DAILY 10/16/23 04/10/24 release tamsulosin 0.4 mg capsule 0.4 mg PO DAILY 10/16/23 04/10/24 Allergies Allergy/AdvReac Type Severity Reaction Status Date / Time No Known Drug Allergies Allergy Verified 04/10/24 20:21 [facility] Medical History (Updated 04/11/24 @ 01:28 by ) 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 (ICD-10) ?T45.1X5A - Adverse effect of antineoplastic and immunosuppressive drugs, initial encounter (ICD-10) ?Z79.899 - Other penitentiary (current) drug therapy (ICD-10) LLL pneumonia ?J18.9 - Pneumonia, unspecified organism (ICD-10) BPH (benign prostatic hyperplasia) ?N40.0 - Benign prostatic hyperplasia without lower urinary tract symptoms (ICD-10) GERD (gastroesophageal reflux disease) ?K21.9 - Gastro-esophageal reflux disease without esophagitis (ICD-10) Pancreatic cancer ?C25.9 - Malignant neoplasm of pancreas, unspecified (ICD-10) Diabetes ?E11.9 - Type 2 diabetes mellitus without complications (ICD-10) Surgical History Port-A-Cath in place ?Z95.828 - Presence of other vascular implants and grafts (ICD-10) 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 Smoking status: Former smoker Non-prescribed substance use: denies use Previous occupational history: Retired, [employer] Highest level of school completed/degree received: high school graduate Are you now , , , , never or living with a partner: In a typical week, how many times do you talk on the telephone with family, friends, or neighbors: 3 or more times per week How often do you get together with friends or relatives: 3 or more times per week Little interest or pleasure in doing things: not at all Feeling down, depressed, or hopeless: not at all Feel stressed/tense/nervous/anxious/difficulty sleeping: not at all Exam Constitutional Vital Signs, click to edit/add: Last Vital Signs Temp 97.8 F 04/10/24 20:13 Pulse 84 04/11/24 12:02 Resp 16 04/11/24 12:02 BP 96/64 04/12/24 10:00 Pulse Ox 95 04/12/24 10:30 O2 Del Method Room Air 04/11/24 12:02 Course Vital Signs Vital signs: Vital Signs Temperature 97.8 F 04/10/24 20:13 Pulse Rate 77 04/10/24 20:13 Respiratory Rate 18 04/10/24 20:13 Blood Pressure 143/83 H 04/10/24 20:13 Pulse Oximetry 100 04/10/24 20:13 Oxygen Delivery Method Room Air 04/10/24 20:13 Temperature 97.8 F 04/10/24 20:13 Pulse Rate 84 04/11/24 12:02 Respiratory Rate 16 04/11/24 12:02 Blood Pressure 96/64 04/12/24 10:00 Pulse Oximetry 95 04/12/24 10:30 Oxygen Delivery Method Room Air 04/11/24 12:02 MDM - Abdominal Pain MDM Narrative Medical decision making narrative: WBC count was 18.3. CT scan was pending. Care was resumed to Dr. Perla. See his dictation for further evaluation and treatment. Small bowel obstruction is identified on CAT scan. Possible air within the wall of the bowel is also noted. His lactic acid is just above the upper limit of normal and his WBC is 18,000. NG tube inserted and I have spoken to Dr. Perez and the patient will be transferred to the [facility]. Findings are discussed with the patient and his . 04/12/24 6:00am the patient does not have a bed at the [facility]. We have called multiple times for updates and no bed is available at this point. He has been stable here in the emergency department and continues to have the NG tube in place and receive IV fluids. Differential Diagnosis Differential diagnosis: Likely abdominal pain, constipation, diverticulitis, gastroenteritis, pancreatitis and small bowel obstruction Lab Data Labs: Lab Results 04/10/24 04/11/24 04/12/24 Range/Units 20:40 00:39 07:15 WBC 18.3 H 9.8 (4.0-11.0) 10^3/uL RBC 3.71 L 3.06 L (4.70-6.10) 10^6/uL Hgb 11.1 L 9.2 L (14.0-18.0) g/dL Hct 33.4 L 28.0 L (42.0-54.0) % MCV 90.0 91.5 (80.0-94.0) fL MCH 29.9 30.1 (25.9-34.0) pg MCHC 33.2 32.9 (29.9-35.2) g/dL RDW 15.8 H 16.5 H (11.0-15.0) % Plt Count 308 245 (150-450) 10^3/uL MPV 9.6 9.1 L (9.5-13.5) fL Neut % (Auto) 91.7 H 84.7 H (43.0-75.0) % Lymph % (Auto) 5.3 L 10.3 L (20.5-60.0) % [place] % (Auto) 2.1 4.2 (1.7-12.0) % Eos % (Auto) 0.1 L 0.3 L (0.9-7.0) % Baso % (Auto) 0.1 L 0.1 L (0.2-2.0) % Neut # (Auto) 16.8 H 8.3 H (1.4-6.5) 10^3/uL Lymph # (Auto) 1.0 L 1.0 L (1.2-3.8) 10^3/uL [place] # (Auto) 0.4 0.4 (0.3-0.8) 10^3/uL Eos # (Auto) 0.0 0.0 (0.0-0.7) 10^3/uL Baso # (Auto) 0.0 0.0 (0.0-0.1) 10^3/uL Abs Immat Gran (auto) 0.13 H 0.04 H (0.00-0.03) 10^3/uL Imm/Tot Granulo (auto) 0.7 H 0.4 (0.0-0.5) % Sodium 129 L 130 L (136-145) mmol/L Potassium 4.7 4.0 (3.5-5.1) mmol/L Chloride 96 L 99 (98-107) mmol/L Carbon Dioxide 20.9 L 24.6 (21.0-32.0) mmol/L Anion Gap 16.8 10.4 BUN 17.0 11.0 (7.0-18.0) mg/dL Creatinine 0.93 0.85 (0.70-1.30) mg/dL Est GFR ( Amer) >60 >60 (>=60 mL/min/1.73m^2) Est GFR (Non-Af Amer) >60 >60 (>=60 mL/min/1.73m^2) BUN/Creatinine Ratio 18.3 12.9 Glucose 193 H 181 H (74-106) mg/dL Lactate 2.1 H 1.3 (0.4-2.0) mmol/L Calcium 10.2 H 9.0 (8.5-10.1) mg/dL Total Bilirubin 1.5 H 1.1 H (0.2-1.0) mg/dL AST 22 13 L (15-37) U/L ALT 17 21 (16-63) U/L Alkaline Phosphatase 144 H 107 (46-116) U/L Total Protein 6.4 5.0 L (6.4-8.2) g/dL Albumin 3.0 L 2.1 L (3.4-5.0) g/dL Globulin 3.4 2.9 g/dL Albumin/Globulin Ratio 0.9 0.7 Lipase 34.0 (16.0-77.0) U/L Urine Color Yellow (YELLOW) Urine Clarity Clear (CLEAR) Urine pH 5.5 (5.0-9.0) Ur Specific [place] 1.010 (1.005-1.025) Urine Protein Negative (NEG/TRACE) mg/dL Urine Glucose (UA) Negative (NEGATIVE) mg/dL Urine Ketones Negative (NEGATIVE) mg/dL Urine Occult Blood Negative (NEGATIVE) Urine Nitrite Negative (NEGATIVE) Urine Bilirubin Negative (NEGATIVE) Urine Urobilinogen 0.2 (0.2-1.0) EU/dL Ur Leukocyte Esterase Negative (NEGATIVE) Imaging Data CT scan - abdomen: Radiologist's impression: ITS Impressions Abdomen/Pelvis CT 04/10/24 20:27 IMPRESSION: Jejunal small bowel obstruction which appears to be caused by a stent-like device(such as a biliary stent). There is a suggestion of associated hematoma/inflammatory reaction at the site of obstruction. There is also abnormal bowel wall thickening, mesenteric edema and possible air within the wall of the small bowel proximal to the obstruction which raises the possibility of ischemia. Recommend emergent surgical consult. Partially calcified retroperitoneal lymph nodes. Differential diagnosis includes metastatic disease, treated lymphoma, neuroendocrine tumor and granulomatous disease. 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 Small amount of free fluid in pelvis. Left renal stone. Prostamegaly. Periportal edema. CRITICAL RESULTS REPORTING: These results were called by myself and discussed with Diego Perla at the time of the interpretation 04/10/2024 8:36 PM PST. Electronically authenticated by: [employer] Data Date: 04/10/2024 23:[address] 04/10/24 20:46 IMPRESSION: Jejunal small bowel obstruction which appears to be caused by a stent-like device(such as a biliary stent). There is a suggestion of associated hematoma/inflammatory reaction at the site of obstruction. There is also abnormal bowel wall thickening, mesenteric edema and possible air within the wall of the small bowel proximal to the obstruction which raises the possibility of ischemia. Recommend emergent surgical consult. Partially calcified retroperitoneal lymph nodes. Differential diagnosis includes metastatic disease, treated lymphoma, neuroendocrine tumor and granulomatous disease. 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 Small amount of free fluid in pelvis. Left renal stone. Prostamegaly. Periportal edema. CRITICAL RESULTS REPORTING: These results were called by myself and discussed with Diego Perla at the time of the interpretation 04/10/2024 8:36 PM PST. Electronically authenticated by: [employer] Data Date: 04/10/2024 23:44 Chest X-Ray 04/11/24 00:55 IMPRESSION: 1. A nasogastric tube terminates in the proximal stomach with the side-port near the gastroesophageal junction. Recommend advancement. Electronically authenticated by: Zayda OKEEFE Date: 04/11/2024 02:04 Chest X-Ray 04/11/24 02:09 IMPRESSION: 1. A nasogastric tube terminates in the left upper quadrant, likely within the stomach. 2. Medial bibasilar opacities could represent atelectasis and/or aspiration changes. Electronically authenticated by: Zayda OKEEFE Date: 04/11/2024 02:48 Discharge Plan Discharge Chief Complaint: Abdominal Pain Clinical Impression: Small bowel obstruction Patient Disposition: [facility] Time of Disposition Decision: 00:01 Discharge location: [facility] Condition: Fair Mode of Transportation: EMS Documented by User: Sarai Bee MD 04/12/24 10:57 HPI - Abdominal Pain General Chief Complaint: Abdominal Pain Stated Complaint: vomiting Time Seen by Provider: 04/10/24 20:23 Related Data Home Medications ?Medication ?Instructions ?Recorded ?Confirmed finasteride 5 mg tablet 5 mg PO QAM 10/16/23 04/10/24 pantoprazole 20 mg tablet,delayed 20 mg PO DAILY 10/16/23 04/10/24 release tamsulosin 0.4 mg capsule 0.4 mg PO DAILY 10/16/23 04/10/24 Allergies Allergy/AdvReac Type Severity Reaction Status Date / Time No Known Drug Allergies Allergy Verified 04/10/24 20:21 [facility] Medical History (Updated 04/11/24 @ 01:28 by ) 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 (ICD-10) ?T45.1X5A - Adverse effect of antineoplastic and immunosuppressive drugs, initial encounter (ICD-10) ?Z79.899 - Other terminal operations supervisor (current) drug therapy (ICD-10) LLL pneumonia ?J18.9 - Pneumonia, unspecified organism (ICD-10) BPH (benign prostatic hyperplasia) ?N40.0 - Benign prostatic hyperplasia without lower urinary tract symptoms (ICD-10) GERD (gastroesophageal reflux disease) ?K21.9 - Gastro-esophageal reflux disease without esophagitis (ICD-10) Pancreatic cancer ?C25.9 - Malignant neoplasm of pancreas, unspecified (ICD-10) Diabetes ?E11.9 - Type 2 diabetes mellitus without complications (ICD-10) Surgical History Port-A-Cath in place ?Z95.828 - Presence of other vascular implants and grafts (ICD-10) 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 Smoking status: Former smoker Non-prescribed substance use: denies use Previous occupational history: Retired, [employer] Highest level of school completed/degree received: high school graduate Are you now , , , , never or living with a partner: In a typical week, how many times do you talk on the telephone with family, friends, or neighbors: 3 or more times per week How often do you get together with friends or relatives: 3 or more times per week Little interest or pleasure in doing things: not at all Feeling down, depressed, or hopeless: not at all Feel stressed/tense/nervous/anxious/difficulty sleeping: not at all Exam Constitutional Vital Signs, click to edit/add: Last Vital Signs Temp 97.8 F 04/10/24 20:13 Pulse 84 04/11/24 12:02 Resp 16 04/11/24 12:02 BP 96/64 04/12/24 10:00 Pulse Ox 95 04/12/24 10:30 O2 Del Method Room Air 04/11/24 12:02 Course Vital Signs Vital signs: Vital Signs Temperature 97.8 F 04/10/24 20:13 Pulse Rate 77 04/10/24 20:13 Respiratory Rate 18 04/10/24 20:13 Blood Pressure 143/83 H 04/10/24 20:13 Pulse Oximetry 100 04/10/24 20:13 Oxygen Delivery Method Room Air 04/10/24 20:13 Temperature 97.8 F 04/10/24 20:13 Pulse Rate 84 04/11/24 12:02 Respiratory Rate 16 04/11/24 12:02 Blood Pressure 96/64 04/12/24 10:00 Pulse Oximetry 95 04/12/24 10:30 Oxygen Delivery Method Room Air 04/11/24 12:02 MDM - Abdominal Pain MDM Narrative Medical decision making narrative: WBC count was 18.3. CT scan was pending. Care was resumed to Dr. Perla. See his dictation for further evaluation and treatment. Small bowel obstruction is identified on CAT scan. Possible air within the wall of the bowel is also noted. His lactic acid is just above the upper limit of normal and his WBC is 18,000. NG tube inserted and I have spoken to Dr. Perez and the patient will be transferred to the [facility]. Findings are discussed with the patient and his . 04/12/24 6:00am the patient does not have a bed at the [facility]. We have called multiple times for updates and no bed is available at this point. He has been stable here in the emergency department and continues to have the NG tube in place and receive IV fluids. Dr Bee : The patient care was transferred to de at 7 AM at the change of shift The patient has been here 36 hours 1 evaluation at the bedside he still having pain last time he took any pain medication with a 10 PM the patient have tenderness upon palpation of the right upper quadrant he also have the NG tube still on intermittent suction and it is having significant amount of secretion drain I did repeat the blood workup and shows improvement in the white blood cells and lactic acid as well as the rest of the chemistry The patient was provided Dilaudid for pain and I called for [facility] transfer line and explained to them the fact that the patient has been waiting for 36 hours and spoke with general surgery in case of any recommendation that would further needed in case of any progression of the patient CAT scan finding but the general surgeon I spoke with explained that we still waiting for bed assignment The patient From the oncology service Dr. Smith office called and updated Lab Data Labs: Lab Results 04/10/24 04/11/24 04/12/24 Range/Units 20:40 00:39 07:15 WBC 18.3 H 9.8 (4.0-11.0) 10^3/uL RBC 3.71 L 3.06 L (4.70-6.10) 10^6/uL Hgb 11.1 L 9.2 L (14.0-18.0) g/dL Hct 33.4 L 28.0 L (42.0-54.0) % MCV 90.0 91.5 (80.0-94.0) fL MCH 29.9 30.1 (25.9-34.0) pg MCHC 33.2 32.9 (29.9-35.2) g/dL RDW 15.8 H 16.5 H (11.0-15.0) % Plt Count 308 245 (150-450) 10^3/uL MPV 9.6 9.1 L (9.5-13.5) fL Neut % (Auto) 91.7 H 84.7 H (43.0-75.0) % Lymph % (Auto) 5.3 L 10.3 L (20.5-60.0) % [place] % (Auto) 2.1 4.2 (1.7-12.0) % Eos % (Auto) 0.1 L 0.3 L (0.9-7.0) % Baso % (Auto) 0.1 L 0.1 L (0.2-2.0) % Neut # (Auto) 16.8 H 8.3 H (1.4-6.5) 10^3/uL Lymph # (Auto) 1.0 L 1.0 L (1.2-3.8) 10^3/uL [place] # (Auto) 0.4 0.4 (0.3-0.8) 10^3/uL Eos # (Auto) 0.0 0.0 (0.0-0.7) 10^3/uL Baso # (Auto) 0.0 0.0 (0.0-0.1) 10^3/uL Abs Immat Gran (auto) 0.13 H 0.04 H (0.00-0.03) 10^3/uL Imm/Tot Granulo (auto) 0.7 H 0.4 (0.0-0.5) % Sodium 129 L 130 L (136-145) mmol/L Potassium 4.7 4.0 (3.5-5.1) mmol/L Chloride 96 L 99 (98-107) mmol/L Carbon Dioxide 20.9 L 24.6 (21.0-32.0) mmol/L Anion Gap 16.8 10.4 BUN 17.0 11.0 (7.0-18.0) mg/dL Creatinine 0.93 0.85 (0.70-1.30) mg/dL Est GFR ( Amer) >60 >60 (>=60 mL/min/1.73m^2) Est GFR (Non-Af Amer) >60 >60 (>=60 mL/min/1.73m^2) BUN/Creatinine Ratio 18.3 12.9 Glucose 193 H 181 H (74-106) mg/dL Lactate 2.1 H 1.3 (0.4-2.0) mmol/L Calcium 10.2 H 9.0 (8.5-10.1) mg/dL Total Bilirubin 1.5 H 1.1 H (0.2-1.0) mg/dL AST 22 13 L (15-37) U/L ALT 17 21 (16-63) U/L Alkaline Phosphatase 144 H 107 (46-116) U/L Total Protein 6.4 5.0 L (6.4-8.2) g/dL Albumin 3.0 L 2.1 L (3.4-5.0) g/dL Globulin 3.4 2.9 g/dL Albumin/Globulin Ratio 0.9 0.7 Lipase 34.0 (16.0-77.0) U/L Urine Color Yellow (YELLOW) Urine Clarity Clear (CLEAR) Urine pH 5.5 (5.0-9.0) Ur Specific [place] 1.010 (1.005-1.025) Urine Protein Negative (NEG/TRACE) mg/dL Urine Glucose (UA) Negative (NEGATIVE) mg/dL Urine Ketones Negative (NEGATIVE) mg/dL Urine Occult Blood Negative (NEGATIVE) Urine Nitrite Negative (NEGATIVE) Urine Bilirubin Negative (NEGATIVE) Urine Urobilinogen 0.2 (0.2-1.0) EU/dL Ur Leukocyte Esterase Negative (NEGATIVE) Imaging Data CT scan - abdomen: Radiologist's impression: ITS Impressions Abdomen/Pelvis CT 04/10/24 20:27 IMPRESSION: Jejunal small bowel obstruction which appears to be caused by a stent-like device(such as a biliary stent). There is a suggestion of associated hematoma/inflammatory reaction at the site of obstruction. There is also abnormal bowel wall thickening, mesenteric edema and possible air within the wall of the small bowel proximal to the obstruction which raises the possibility of ischemia. Recommend emergent surgical consult. Partially calcified retroperitoneal lymph nodes. Differential diagnosis includes metastatic disease, treated lymphoma, neuroendocrine tumor and granulomatous disease. 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 Small amount of free fluid in pelvis. Left renal stone. Prostamegaly. Periportal edema. CRITICAL RESULTS REPORTING: These results were called by myself and discussed with Diego Perla at the time of the interpretation 04/10/2024 8:36 PM PST. Electronically authenticated by: FRANCISCO SRINIVASAN Date: 04/10/2024 23:[address] 04/10/24 20:46 IMPRESSION: Jejunal small bowel obstruction which appears to be caused by a stent-like device(such as a biliary stent). There is a suggestion of associated hematoma/inflammatory reaction at the site of obstruction. There is also abnormal bowel wall thickening, mesenteric edema and possible air within the wall of the small bowel proximal to the obstruction which raises the possibility of ischemia. Recommend emergent surgical consult. Partially calcified retroperitoneal lymph nodes. Differential diagnosis includes metastatic disease, treated lymphoma, neuroendocrine tumor and granulomatous disease. 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 Small amount of free fluid in pelvis. Left renal stone. Prostamegaly. Periportal edema. CRITICAL RESULTS REPORTING: These results were called by myself and discussed with Diego Perla at the time of the interpretation 04/10/2024 8:36 PM PST. Electronically authenticated by: FRANCISCO SRINIVASAN Date: 04/10/2024 23:44 Chest X-Ray 04/11/24 00:55 IMPRESSION: 1. A nasogastric tube terminates in the proximal stomach with the side-port near the gastroesophageal junction. Recommend advancement. Electronically authenticated by: Zayda OKEEFE Date: 04/11/2024 02:04 Chest X-Ray 04/11/24 02:09
--- NOTE | 2024-04-10 20:46 | CT_ITS ---
The [address] [address] Patient Name: TRINITY PERRY MRN: [id number] date: 1950 Sex: M Assigned Patient Location: ER Current Patient Location: ER Accession/Order Number: [id number] Exam Date: 04/10/2024 21:08 Report Date: 04/10/2024 23:44 At the request of: VAISHNAVI TRENT Procedure: CT chest w con CT CHEST, ABDOMEN AND PELVIS WITH CONTRAST HISTORY: Abdominal pain. Pneumonia. Weakness. Pancreatic cancer. COMPARISON: Chest x-ray 03/24/2004. METHOD: Dose reduction techniques were achieved by using automated exposure control and/or adjustment of mA and/or kV according to patient size and/or use of iterative reconstruction technique. FINDINGS: CT CHEST: There is no evidence of mediastinal or hilar noncalcified lymph nodes. The esophagus is normal appearing. There is no pericardial effusion. The major airways are patent. There are no focal consolidations. There is minimal left basilar atelectasis. There are no pleural effusions. There is no pneumothorax. There are no acute bony abnormalities. CT ABDOMEN AND PELVIS: There is no intrahepatic mass or intrahepatic biliary ductal dilatation. There is periportal edema. The and stomach are normal appearing. The pancreatic head is been removed. There is mild dilatation of the ectatic duct measuring 4 mm. The spleen is normal in size. The adrenal glands are normal appearing. There is no hydronephrosis. There are bilateral renal cysts. There is a left renal stone. There are dilated loops of small bowel jejunum, at the transition point in the left upper quadrant is the appearance of a stent-like device with an associated hyperdensity(axial image 43)a. There is also abnormal circumferential thickening in the jejunum just proximal to the obstruction as well as possible air within the wall of the dilated small bowel. There is also associated mesenteric stranding. There are partially calcified enlarged periaortic lymph nodes with a conglomerate of lymph nodes measuring 3.4 x 3.4 cm. There are also aortocaval partially calcified enlarged lymph nodes There is a very small amount of free fluid in the pelvis. The prostate is enlarged. The appendix has a fat-containing structure measures 1.3 x 2.2 cm. There is no right lower quadrant inflammatory stranding. There are no acute bony abnormalities. CT/CT chest w con IMPRESSION: Jejunal small bowel obstruction which appears to be caused by a stent-like device(such as a biliary stent). There is a suggestion of associated hematoma/inflammatory reaction at the site of obstruction. There is also abnormal bowel wall thickening, mesenteric edema and possible air within the wall of the small bowel proximal to the obstruction which raises the possibility of ischemia. Recommend emergent surgical consult. Partially calcified retroperitoneal lymph nodes. Differential diagnosis includes metastatic disease, treated lymphoma, neuroendocrine tumor and granulomatous disease. 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 Small amount of free fluid in pelvis. Left renal stone. Prostamegaly. Periportal edema. CRITICAL RESULTS REPORTING: These results were called by myself and discussed with Diego Perla at the time of the interpretation 04/10/2024 8:36 PM PST. Electronically authenticated by: FRANCISCO SRINIVASAN Date: 04/10/2024 23:44
[2024-04-10] MEDS: MORPHINE SULFATE 2 MG/ML SYRINGE IV ×2 (20:50→23:00)
[2024-04-10] MEDS: 0.9 % SODIUM CHLORIDE 1,000 ML 1000 ML IV (20:51)
[2024-04-10] MEDS: ONDANSETRON PF 4 MG/2 ML VIAL IV (20:51)
[2024-04-10 20:52] LABS: Basophils Percent Auto 0.1 % (0.2-2.0); Eosinophils Percent Auto 0.1 % (0.9-7.0); Hematocrit 33.4 % (42.0-54.0); Hemoglobin 11.1 g/dL (14.0-18.0); Immature Granulocytes Abs Auto 0.13 10^3/uL (0.00-0.03); Immature Granulocytes Pct Auto 0.7 % (0.0-0.5); Lymphocytes Percent Auto 5.3 % (20.5-60.0); Mean Corpuscular HGB Conc 33.2 g/dL (29.9-35.2); Mean Corpuscular Hemoglobin 29.9 pg (25.9-34.0); Mean Platelet Volume 9.6 fL (9.5-13.5); Monocytes Absolute Auto 0.4 10^3/uL (0.3-0.8); Monocytes Percent Auto 2.1 % (1.7-12.0); Neutrophils Absolute Auto 16.8 10^3/uL (1.4-6.5); Neutrophils Percent Auto 91.7 % (43.0-75.0); Platelet Count 308 10^3/uL (150-450); Red Blood Count 3.71 10^6/uL (4.70-6.10); Red Cell Distribution Width 15.8 % (11.0-15.0); White Blood Count 18.3 10^3/uL (4.0-11.0)
[2024-04-10 21:15] LABS: Alanine Aminotransferase 17 U/L (16-63); Albumin Globulin Ratio 0.9; Alkaline Phosphatase 144 U/L (46-116); Anion Gap 16.8; Aspartate Amino Transferase 22 U/L (15-37); BUN Creatinine Ratio 18.3; Bilirubin Total 1.5 mg/dL (0.2-1.0); Calcium 10.2 mg/dL (8.5-10.1); Carbon Dioxide 20.9 mmol/L (21.0-32.0); Chloride 96 mmol/L (98-107); Estimated GFR (African America >60 (>=60 mL/min/1.73m^2); Estimated GFR (Non-African Ame >60 (>=60 mL/min/1.73m^2); Globulin 3.4 g/dL; Glucose 193 mg/dL (74-106); Sodium 129 mmol/L (136-145); Total Protein 6.4 g/dL (6.4-8.2)
[2024-04-10 21:20] LABS: Potassium 4.7 mmol/L (3.5-5.1)
[2024-04-11] VITALS (96 sets, daily range): BP systolic 95–133; BP diastolic 60–80; PULSE 80–85; O2SAT 92–100
[2024-04-11 00:13] LABS: Lactate/Lactic Acid 2.1 mmol/L (0.4-2.0)
[2024-04-11] MEDS: 0.9 % SODIUM CHLORIDE 1,000 ML 125 ML IV (00:24)
[2024-04-11] MEDS: MORPHINE SULFATE 2 MG/ML SYRINGE IV ×3 (00:24→05:37)
[2024-04-11 00:50] LABS: Bilirubin Urine NEGATIVE (NEGATIVE); Blood Urine NEGATIVE (NEGATIVE); Clarity Urine CLEAR (CLEAR); Color Urine YELLOW (YELLOW); Glucose Urine UA NEGATIVE (NEGATIVE); Ketones Urine NEGATIVE (NEGATIVE); Leukocyte Esterase Urine NEGATIVE (NEGATIVE); Nitrite Urine NEGATIVE (NEGATIVE); Protein Urine NEGATIVE (NEG/TRACE); Urobilinogen Urine 0.2 EU/dL (0.2-1.0); pH Urine 5.5 (5.0-9.0)
[2024-04-11 00:51] LABS: Urine Microscopic Indicated NO
--- NOTE | 2024-04-11 00:55 | XR_ITS ---
The [address] [address] Patient Name: TRINITY PERRY MRN: [id number] date: 1950 Sex: M Assigned Patient Location: ER Current Patient Location: ED.MAIN Accession/Order Number: [id number] Exam Date: 04/11/2024 01:00 Report Date: 04/11/2024 02:04 At the request of: JACQUES PADILLA Procedure: XR chest 1V EXAM: XR chest 1V HISTORY: NG tube placement COMPARISON: Chest radiograph dated 03/24/2024. TECHNIQUE: One view of the chest was obtained. FINDINGS: A left chest port a catheter is in place. A nasogastric tube terminates in the proximal stomach with the side-port near the gastroesophageal junction. The cardiac silhouette is normal in size. Aortic atherosclerotic disease is seen. The lungs are clear. There is no significant pneumothorax or pleural effusion. No acute osseous abnormality is seen. XR/XR chest 1V IMPRESSION: 1. A nasogastric tube terminates in the proximal stomach with the side-port near the gastroesophageal junction. Recommend advancement. Electronically authenticated by: Zayda OKEEFE Date: 04/11/2024 02:04
--- OUTSIDE RECORDS SUMMARY | 2024-04-11 00:56 | XMS_ITS | CCD ---
Author Organization [facility] Care Team Providers Care Software Installer Name Role Phone Giovanni Salinas Primary Care [...] Firas Unavailable Aime SALMON, Josephine Mi Unavailable [phone] Grace Bess MD Unavailable [phone] Greta Wetzel PA-C Unavailable César Leiva MD Unavailable [phone] MARIO Salinas Primary Care Provider [phone] DANIKA Padilla Emergency Provider Brad MARTIN MD, Daniel B Primary Care Provider Josephine Salomon RN Unavailable [phone] Unavailable Giovanni Salinas MD Unavailable [phone] Giovanni Salinas MD Primary Care Provider Brad MARTIN MD, Daniel B Primary Care Provider [phone] Jemma Padilla Attending Unavailable Jemma Padilla Admitting Unavailable Giovanni Salinas Primary Care Unavailable Luis GODWIN, Vivek Jordan Unavailable KARUPPASAMY, KARUNAKARAVEL Admitting Unava ilable KARUPPASAMY, KARUNAKARAVEL Attending Unava ilable SALINAS II, GIOVANNI B Primary Care Unavailable Grace Bess MD Unavailable Giovanni Salinas MD Unavailable Monday WRAPPER OFFKatie Unavailable GIOVANNI SALINAS Attending Unavailable GIOVANNI SALINAS [...] II, GIOVANNI B Primary Care Unavailable KARAMLOU, GRCAE Referring Unavailable YORDY MONCADA Attending Unavailable SALINAS [...] GRACE Referring Unavailable YORDY MONCADA Attending Unavailable SLAINAS II, GIOVANNI B Primary Care Unavailable KARAMLOU, [...] 100 tablet 0 03/18/2020 04/17/2020 Active amylases 68437 unt / endopeptidases 62205 unt / lipase 6000 unt delayed release [...] 0 10/13/2023 10/20/2023 Active Continuous Blood Gluc Tie Presser (Dexcom G7 Tie Presser) device (3 sources) Start: 04-17-2023 End: 04-16-2024 Continuous Blood Gluc Tie Presser (Dexcom G7 Tie Presser) device Indications: Type 2 diabetes mellitus without complication, without long-term current use of insulin ([facility]) 1 Device yearly. 1 each 04/17/2023 04/16/2024 Active Start: 04-17-2023 End: 04-16-2024 Continuous Blood Gluc Receiv er (Dexcom G7 Tie Presser) device Indications: Type 2 diabetes mellitus without complication, without long-term current use of insulin ([facility]) 1 Device yearly. 1 each 0 04/17/2023 04/16/2024 Active Continuous Blood Gluc Sensor (Dexcom G7 Sensor) misc (1 source) Start: 04-17-2023 End: 04-16-2024 Continuous Blood Gluc Sensor (Dexcom G7 Sensor) misc Indications: Type 2 diabetes mellitus without complication, without long-term current use of insulin ([facility]) 1 Application Every 10 (ten) days. 3 each 11 04/17/2023 04/16/2024 Active Continuous Blood Gluc Transmit (Dexcom G6 transmitter) misc (1 source) Start: 11-14-2022 Continuous Blo od Gluc Transmit (Dexcom G6 transmitter) misc Indications: Diabetes mellitus due to underlying condition with diabetic polyneuropathy, without long-term current use of insulin ([facility]) Use as instructed 1 each 0 11/14/2022 Active Continuous Glucose Tie Presser (FreeStyle Flaco 3 Lawrence) device (6 sources) Start: 10-26-2023 End: 10-25-2024 Continuous Glucose Tie Presser (FreeStyle Flaco 3 [place]) device Indications: Type 2 diabetes mellitus without complication, without long-term current use of insulin ([facility]) 1 Device yearly 1 each 10/26/2023 10/25/2024 Active Continuous Glucose Sensor (FreeStyle Flaco 3 Plus Sensor) misc (6 sources) Start: 02-23-2024 End: 05-23-2024 Continuous Glucose Sensor (FreeStyle Flaco 3 Plus Sensor) misc Indications: Diabetes mellitus due to underlying condition with diabetic polyneuropathy, without long-term current use of insulin ([facility]) 1 Units See administration instructions [...] Comment on above: [facility]. tamsulosin hydrochloride 0.4 mg oral capsule (20 sources) alpha-Adrenergic Quinn Start: 022 take 1 capsule by mouth once daily tamsulosin (Flomax) 0.4 MG 24 hr capsule Indications: Acute urinary retention Take 1 capsule (0.4 mg) by mouth Daily 100 capsule 03/15/2024 Active Start: 02-12-2022 take 1 capsule by mo [facility] every twenty-four hours in the morning tamsulosin [...] by Patient) take 2 tablets by mo [facility] every six hours as needed for pain acetaminophen (TYLENOL) 325 MG tablet Ta ke 650 mg by mouth every 6 hours as needed for Pain 0 Active Comment on above: Take 2 tablets by mo [facility] every 6 hours as needed for Pain [...] 95.8 mL levoFLOXacin 500 mg oral tablet (13 sources) Quinolone Antimicrobial Start: 10-03-2023 End: 04-02-2024 [...] 06-07-2023 Chronic Diseases of white blood cells (8 sources) Leukocytosis; 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: [Elevated white blood cell count, unspecified] Onset: 10-25-2022 12-10-2020 Chronic E Codes: Fall (1 source) Fall; 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: [Unspecified fall, initial encounter] 12-15-2022 Episodic Essential hypertension (7 sources) Benign essential hypertension; 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: [Essential (primary) hypertension] Onset: 10-27-2009 10-25-2022 Chronic Fluid and electrolyte disorders (1 source) Acute hyponatremia; 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: [Hypo-osmolality and hyponatremia] 12-10-2020 Episodic Gastroduodenal ulcer (except hemorrhage) (7 sources) Ulcer of duodenum; 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: [Duodenal ulcer, unspecified as acute or chronic, without hemorrhage or perforation] Onset: 10-25-2022 10-25-2022 Chronic Hyperplasia of prostate (14 sources) Benign prostatic hyperplasia; 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: [Benign prostatic hyperplasia without lower urinary tract symptoms] Onset: 10-27-2009 10-25-2022 Chronic Immunity disorders (6 sources) Immunosuppression; 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: [Immunodeficiency, unspecified] Onset: 04-01-2024 04-01-2024 Chronic Nonspecific chest pain (1 source) Chest pain; 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: [Chest pain, unspecified] 12-21-2022 Episodic Nutritional deficiencies (20 sources) Deficiency of macronutrients; 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: [Unspecified severe protein-calorie malnutrition] Onset: 12-05-2019 03-23-2020 Chronic Other aftercare (4 sources) Encounter for therapeutic drug level monitoring; 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: [ENC THERAPEUTC DRUG LEVL MONITORING] Onset: 05-25-2021 Episodic Other aftercare (1 source) terminal manager (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; 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: [CO 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 CURRNT USE ANTICOAGULANTS] Onset: 06-23-2021 Episodic Other [...] cough] 10-03-2023 Episodic Other nervous system disorders (7 sources) Disorder of muscle; 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: [Myopathy, unspecified] Onset: 10-25-2022 10-25-2022 Chronic Other nervous system disorders (15 sources) Neuropathy; 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: [Polyneuropathy, unspecified] Onset: 10-25-2022 10-25-2022 Chronic Pancreatic disorders (not diabetes) (1 source) Chronic pancreatitis; 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: [Other chronic pancreatitis] 02-15-2022 Chronic Peripheral and visceral atherosclerosis (6 sources) Atherosclerosis of aorta; 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: [Atherosclerosis of [...] procedure] Onset: 02-05-2021 Chronic Residual codes; unclassified (7 sources) Dependence on wheelchair; 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: [Dependence on wheelchair] Onset: 10-25-2022 10-25-2022 Chronic Secondary malignancies (6 sources) Secondary malignant neoplasm of intra-abdominal lymph nodes; 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: [Secondary and unspecified malignant neoplasm of intra-abdominal lymph nodes] Onset: 10-27-2023 10-27-2023 Chronic Skin and subcutaneous tissue infections (2 sources) Cutaneous abscess, unspecified; 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: [Cellulitis] Onset: 02-05-2021 11-02-2023 Episodic Substance-related disorders (7 sources) Tobacco dependence syndrome; 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: [Nicotine dependence, [...] Resolved: 10-27-2023 Chronic Diabetes mellitus without complication (7 sources) Abnormal glucose tolerance test; 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: [Other abnormal glucose] Onset: 10-27-2009 Resolved: 10-27-2023 10-25-2022 Episodic Genitourinary symptoms and ill-defined conditions (20 sources) Acute retention of urine ; 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: [Other retention of urine] Onset: 12-26-2020 12-26-2020 Episodic Noninfectious gastroenteritis (20 sources) Colitis; 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: [Noninfective gastroenteritis and colitis, unspecified] Onset: 12-03-2020 12-04-2020 Episodic Nutritional deficiencies (9 sources) Deficiency of macronutrients; 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: [Nutritional deficiency, [...] Long-term current use of anticoagulant; 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: [terminal manager (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] Onset: 04-07-2020 12-04-2020 Episodic Other aftercare (20 sources) Long-term current use of insulin; 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: [[facility] (current) use of insulin] Onset: 05-08-2020 05-08-2020 Episodic Other circulatory disease (6 sources) Orthostatic hypotension; 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: [Orthostatic hypotension] Onset: 10-27-2023 10-27-2023 Episodic Other disorders of stomach and duodenum (20 sources) Pyloric obstruction; 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: [Adult hypertrophic pyloric stenosis] Onset: 11-20-2019 03-09-2020 Episodic Other disorders of stomach and duodenum (1 source) Adult hypertrophic pyloric stenosis; 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: [ADULT HYPERTROPHIC PYLORIC STENOSIS] Onset: 03-12-2021 Episodic Other gastrointestinal disorders (7 sources) Constipation; 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: [Constipation, unspecified] Onset: 10-25-2022 [...] procedure] Onset: 02-05-2021 Episodic Residual codes; unclassified (7 sources) Edema; 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: [Edema, unspecified] Onset: 10-27-2009 [...] Test Name Value Interpretation Reference Range Facility [facility] 04-04-2024 CNPN Normal [facility] CANCER AG19-9 SERPL-ACNC on 04-03-2024 [facility] CANCER AG19-9 SERPL-ACNC 496 U/mL High [facility] - 36.0 U/mL [facility] Comment on above: Cancer antigen 19-9 test is used as an aid in monitoring response to treatment or recurrence in patients with established pancreatic, hepatobiliary, or gastrointestinal malignancies. Clinical correlation is required. The CA 19-9 Antigen test was performed using the [employer] DXI paramagnetic particle chemiluminescent immunoassay method. Results obtained with different assay methods or kits cannot be used interchangeably. Interpretation and review of laboratory results Abnormal [facility] Specimen Type: BLOOD SPECIMEN Ordering Facility: [facility] Address: [address] [place] [address] Original Ordering Provider: VIVEK SMITH [facility] CBC W Auto Differential pane l (Bld)on 04-02-2024 Basophils (Bld) [#/Vol] 0.04 10*3/uL [facility] Differential cell count method Nom (Bld) Auto [facility] Eosinophils (Bld) [#/Vol] 0.04 10*3/uL [facility] Hemoglobin (Bld) [Mass/Vol] 11.0 g/dL Low 13.0 - 17.0 g/dL [facility] Immature granulocytes (Bld) [#/Vol] 0.16 10*3/uL High [facility] Immature granulocytes/100 WBC (Bld) 2.0 % [facility] Lymphocytes (Bld) [#/Vol] 1.92 10*3/uL [facility] Monocytes (Bld) [#/Vol] 0.74 10*3/uL [facility] Neutrophils (Bld) [#/Vol] 5.26 10*3/uL [facility] Nucleated RBC (Bld) [#/Vol] [facility] Nucleated RBC/100 WBC (Bld) [Ratio] 0.0 % /100 WBC [facility] Platelet mean volume (Bld) [Entitic vol] 9.0 fL 9.0 - 12.7 fL [facility] Platelets (Bld) [#/Vol] 302 10*3/uL [facility] RBC (Bld) [#/Vol] 3.70 10*6/uL Low 4.20 - 6.0 0 m/uL [facility] WBC (Bld) [#/Vol] 8.16 10*3/uL [facility] Basophils (Bld) [#/Vol] 0.04 10*3/uL Normal <0.11 [facility] Comment on above: Order Comment: Speci men Type: BLOOD SPECIMENOrdering Facility: [facility] Address: [address] [place] [address] Performed By: #### 5 7021-8 ####[facility] LABCLIA [id number] [place] [address] Basophils/100 WBC (Bld) 0.5 % Normal [facility] Comment on above: Order Comment: Speci men Type: BLOOD SPECIMENOrdering Facility: [facility] Address: [address] [place] [address] Performed By: #### 5 7021-8 ####[facility] LABCLIA [id number] [place] [address] Differential cell count method Nom (Bld) Auto Normal [facility] Comment on above: Order Comment: Speci men Type: BLOOD SPECIMENOrdering Facility: [facility] Address: [address] [place] [address] Performed By: #### 5 7021-8 ####[facility] LABCLIA [id number] [place] [address] Eosinophils (Bld) [#/Vol] 0.04 10*3/uL Normal <0.46 [facility] Comment on above: Order Comment: Speci men Type: BLOOD SPECIMENOrdering Facility: [facility] Address: [address] [place] [address] Performed By: #### 5 7021-8 ####[facility] LABCLIA [id number] [place] [address] Eosinophils/100 WBC (Bld) 0.5 % Normal [facility] Comment on above: Order Comment: Speci men Type: BLOOD SPECIMENOrdering Facility: [facility] Address: [address] [place] [address] Performed By: #### 5 7021-8 ####[facility] LABCLIA [id number] [place] [address] Erythrocyte distribution width (RBC) [Ratio] 16.5 % High 11.5-15.0 [facility] Comment on above: Order Comment: Speci men Type: BLOOD SPECIMENOrdering Facility: [facility] Address: [address] [place] [address] Performed By: #### 5 7021-8 ####[facility] LABCLIA [id number] [place] [address] Hematocrit (Bld) [Volume fraction] 34.1 % Low 39.0-51.0 [facility] Comment on above: Order Comment: Speci men Type: BLOOD SPECIMENOrdering Facility: [facility] Address: [address] [place] [address] Performed By: #### 5 7021-8 ####[facility] LABIA [id number] [place] [address] Hemoglobin (Bld) [Mass/Vol] 11.0 g/dL Low 13.0-17.0 [facility] Comment on above: Order Comment: Speci men Type: BLOOD SPECIMENOrdering Facility: [facility] Address: [address] [place] [address] Performed By: #### 5 7021-8 ####[facility] LABCLIA [id number] [place] [address] Immature granulocytes (Bld) [#/Vol] 0.16 10*3/uL High <0.10 [facility] Comment on above: Order Comment: Speci men Type: BLOOD SPECIMENOrdering Facility: [facility] Address: [address] [place] [address] Performed By: #### 5 7021-8 ####[facility] LABCLIA [id number] [place] [address] Immature granulocytes/100 WBC (Bld) 2.0 % Normal [facility] Comment on above: Order Comment: Speci men Type: BLOOD SPECIMENOrdering Facility: [facility] Address: [address] [place] [address] Performed By: #### 5 7021-8 ####[facility] LABCLIA [id number] [place] [address] Lymphocytes (Bld) [#/Vol] 1.92 10*3/uL Normal 1.00-4.00 [facility] Comment on above: Order Comment: Speci men Type: BLOOD SPECIMENOrdering Facility: [facility] Address: [address] [place] [address] Performed By: #### 5 7021-8 ####[facility] LABCLIA [id number] [place] [address] Lymphocytes/100 WBC (Bld) 23.5 % Normal [facility] Comment on above: Order Comment: Speci men Type: BLOOD SPECIMENOrdering Facility: [facility] Address: [address] [place] [address] Performed By: #### 5 7021-8 ####[facility] LABCLIA [id number] [place] [address] MCH (RBC) [Entitic mass] 29.7 pg Normal 26.0-34.0 [facility] Comment on above: Order Comment: Speci men Type: BLOOD SPECIMENOrdering Facility: [facility] Address: [address] [place] [address] Performed By: #### 5 7021-8 ####[facility] LABCLIA [id number] [place] [address] MCHC (RBC) [Mass/Vol] 32.3 g/dL Normal 30.5-36.0 [facility] Comment on above: Order Comment: Speci men Type: BLOOD SPECIMENOrdering Facility: [facility] Address: [address] [place], [place] [address] Performed By: #### 5 7021-8 ####[facility] LABCLIA [id number] [place] [address] MCV (RBC) [Entitic vol] 92.2 fL Normal 80.0-100.0 [facility] Comment on above: Order Comment: Speci men Type: BLOOD SPECIMENOrdering Facility: [facility] Address: [address] [place] [address] Performed By: #### 5 7021-8 ####[facility] LABCLIA [id number] [place] [address] Monocytes (Bld) [#/Vol] 0.74 10*3/uL Normal <0.87 [facility] Comment on above: Order Comment: Speci men Type: BLOOD SPECIMENOrdering Facility: [facility] Address: [address] [place] [address] Performed By: #### 5 7021-8 ####[facility] LABCLIA [id number] [place] [address] Monocytes/100 WBC (Bld) 9.1 % Normal [facility] Comment on above: Order Comment: Speci men Type: BLOOD SPECIMENOrdering Facility: [facility] Address: [address] [place] [address] Performed By: #### 5 7021-8 ####[facility] LABCLIA [id number] [place] [address] Neutrophils (Bld) [#/Vol] 5.26 10*3/uL Normal 1.45-7.50 [facility] Comment on above: Order Comment: Speci men Type: BLOOD SPECIMENOrdering Facility: [facility] Address: [address] [place] [address] Performed By: #### 5 7021-8 ####[facility] LABCLIA [id number] [place] [address] Neutrophils/100 WBC (Bld) 64.4 % Normal [facility] Comment on above: Order Comment: Speci men Type: BLOOD SPECIMENOrdering Facility: [facility] Address: [address] [place] [address] Performed By: #### 5 7021-8 ####[facility] LABCLIA [id number] [place] [address] Nucleated RBC (Bld) [#/Vol] 10*3/uL Normal <0.01 [facility] Comment on above: Order Comment: Speci men Type: BLOOD SPECIMENOrdering Facility: [facility] Address: [address] [place] [address] Performed By: #### 5 7021-8 ####[facility] LABCLIA [id number] [place] [address] Nucleated RBC/100 WBC (Bld) [Ratio] 0.0 /100 WBC Normal [facility] Comment on above: Order Comment: Speci men Type: BLOOD SPECIMENOrdering Facility: [facility] Address: [address] [place] [address] Performed By: #### 5 7021-8 ####[facility] LABCLIA [id number] [place] [address] Platelet mean volume (Bld) [Entitic vol] 9.0 fL Normal 9.0-12.7 [facility] Comment on above: Order Comment: Speci men Type: BLOOD SPECIMENOrdering Facility: [facility] Address: [address] [place] [address] Performed By: #### 5 7021-8 ####[facility] LABCLIA [id number] [place] [address] Platelets (Bld) [#/Vol] 302 10*3/uL Normal 150-400 [facility] Comment on above: Order Comment: Speci men Type: BLOOD SPECIMENOrdering Facility: [facility] Address: [address] [place] [address] Performed By: #### 5 7021-8 ####[facility] LABCLIA [id number] [place] [address] RBC (Bld) [#/Vol] 3.70 10*6/uL Low 4.20-6.00 [facility] Comment on above: Order Comment: Speci men Type: BLOOD SPECIMENOrdering Facility: [facility] Address: [address] [place] [address] Performed By: #### 5 7021-8 ####[facility] LABCLIA [id number] [place] [address] WBC (Bld) [#/Vol] 8.16 10*3/uL Normal 3.70-11.00 [facility] Comment on above: Order Comment: Speci men Type: BLOOD SPECIMENOrdering Facility: [facility] Address: [address] [place] [address] Performed By: #### 5 7021-8 ####[facility] LABIA [id number] [place] [address] [facility] CBC W AUTO DIFF BLDon [facility] BASOPHILS # BLD AUTO 0.04 [facility] DIFFERENTIAL METHOD BLD Auto [facility] EOSINOPHIL # BLD AUTO 0.04 [facility] LYMPHOCYTES # BLD AUTO 1.92 [facility] MONOCYTES # BLD AUTO 0.74 [facility] NEUTROPHILS # BLD AUTO 5.26 [facility] NRBC # BLD AUTO <0.01 [facility] NRBC/100 WBC BLD-RTO 0 /100 WBC [facility] PLATELET # BLD AUTO 302 [facility] PMV BLD AUTO 9 fL 9.0 - 12.7 fL [facility] WBC # BLD AUTO 8.16 [facility] Hemoglobin (Bld) [Mass/Vol] 11 g/dL Low 13.0 - 17.0 g/dL [facility] IMM GRANULOCYTES # BLD AUTO 0.16 High [facility] IMM GRANULOCYTES/LEUK NFR BLD AUTO 2 % [facility] RBC (Bld) [#/Vol] 3.7 10*6/uL Low 4.20 - 6.0 0 m/uL [facility] Specimen Type: BLOOD SPECIMEN Ordering Facility: [facility] Address: [address] [place] [address] Original Ordering Provider: VIVEK NEWBY [facility] COMP METAB 2000 PNL SERP Kimo 04-02-2024 [facility] AST SERPL-CCNC 14 U/L 14 - 40 U/L [facility] BILIRUB SERPL-MCNC 0.6 mg/dL 0.2 - 1.3 mg/dL [facility] PROT SERPL-MCNC 6.5 g/dL 6.3 - 8. 0 g/dL [facility] GFR/1.73 sq M.predicted CKD-EPI (S/P/Bld) [Vol rate/Area] 96 - PINF [facility] Comment on above: Estimated Glomerular Filtration [...] eGFR may not accurately reflect actual GFR. Specimen Type: BLOOD SPECIMEN Ordering Facility: [facility] Address: [address] [place] [address] Original Ordering Provider: VIVEK NEWBY CNOVSPon 04-02-2024 CNOVSP Normal [facility] Cancer Ag19-9 SerPl-aCncon 1 06-02-2023 Cancer Ag 19-9 Qn 496.0 [arb'U]/mL High <36.0 [facility] Comment on above: Order Comment: Speci men Type: BLOOD SPECIMENOrdering Facility: [facility] Address: [address] [place] [address] Result Comment: [facility] er antigen 19-9 test is used as an aid in monitoring response to treatment or recurrence in patients with established pancreatic, hepatobiliary, or gastrointestinal malignancies. Clinical correlation is required.The CA 19-9 Antigen test was performed using the [employer] DXI paramagnetic particle chemiluminescent immunoassay method. Results obtained with different assay methods or kits cannot be used interchangeably. Performed By: #### 2 4108-3 ####[facility] LABCLIA [id number] [facility] CITIESMaribel [facility] [id number] [address] [place] Comprehensive metabolic 2000 panelOrdered By: Marina Bailey on 04-02-2024 AST [Catalytic activity/Vol] 14 U/L 14 - 40 U/L [facility] Bilirubin [Mass/Vol] 0.6 mg/dL 0.2 - 1 .3 mg/dL [facility] GFR/1.73 sq M.predicted among non-blacks MDRD (S/P/Bld) [Vol rate/Area] 96 mL/min/{1.73_m2} - PINF [facility] Comment on above: Estimated Glomerular Filtration [...] eGFR may not accurately reflect actual GFR. Protein [Mass/Vol] 6.5 g/dL 6.3 - 8.0 g/dL [facility] Comprehensive metabolic 2000 panelon 04-02-2024 Albumin [Mass/Vol] 3.8 g/dL Low 3.9-4.9 [facility] Comment on above: Order Comment: Speci men Type: BLOOD SPECIMENOrdering Facility: [facility] Address: [address] [place] [address] Performed By: #### 2 4323-8 ####[facility] LABCLIA [id number] [place] [address] ALP [Catalytic activity/Vol] 152 U/L High 38-113 [facility] Comment on above: Order Comment: Speci men Type: BLOOD SPECIMENOrdering Facility: [facility] Address: [address] [place] [address] Performed By: #### 2 4323-8 ####[facility] LABCLIA [id number] [place] [address] ALT [Catalytic activity/Vol] 16 U/L Normal 10-54 [facility] Comment on above: Order Comment: Speci men Type: BLOOD SPECIMENOrdering Facility: [facility] Address: [address] [place] [address] Performed By: #### 2 4323-8 ####[facility] LABCLIA [id number] [place] [address] Anion gap [Moles/Vol] 10 mmol/L Normal 8-15 [facility] Comment on above: Order Comment: Speci men Type: BLOOD SPECIMENOrdering Facility: [facility] Address: [address] [place], [place] [address] Performed By: #### 2 4323-8 ####[facility] LABCLIA [id number] [place] [address] AST [Catalytic activity/Vol] 14 U/L Normal 14-40 [facility] Comment on above: Order Comment: Speci men Type: BLOOD SPECIMENOrdering Facility: [facility] Address: [address] [place] [address] Performed By: #### 2 4323-8 ####[facility] LABCLIA [id number] [place] [address] Bilirubin [Mass/Vol] 0.6 mg/dL Normal 0.2-1.3 [facility] Comment on above: Order Comment: Speci men Type: BLOOD SPECIMENOrdering Facility: [facility] Address: [address] [place], [place] [address] Performed By: #### 2 4323-8 ####[facility] LABCLIA [id number] [place] [address] Calcium [Mass/Vol] 9.8 mg/dL Normal 8.5-10.2 [facility] Comment on above: Order Comment: Speci men Type: BLOOD SPECIMENOrdering Facility: [facility] Address: [address] [place], [place] [address] Performed By: #### 2 4323-8 ####[facility] LABCLIA [id number] [place] [address] Chloride [Moles/Vol] 105 mmol/L Normal 98-107 [facility] Comment on above: Order Comment: Speci men Type: BLOOD SPECIMENOrdering Facility: [facility] Address: [address] [place] [address] Performed By: #### 2 4323-8 ####[facility] LABCLIA [id number] [place] [address] CO2 [Moles/Vol] 24 mmol/L Normal 22-30 [facility] Comment on above: Order Comment: Speci men Type: BLOOD SPECIMENOrdering Facility: [facility] Address: [address] [place] [address] Performed By: #### 2 4323-8 ####[facility] LABCLIA [id number] [place] [address] Creatinine [Mass/Vol] 0.75 mg/dL Normal 0.73-1.22 [facility] Comment on above: Order Comment: Speci men Type: BLOOD SPECIMENOrdering Facility: [facility] Address: [address] [place] [address] Performed By: #### 2 4323-8 ####[facility] LABCLIA [id number] [place] [address] Creatinine and Glomerular filtration rate.predicted panel (S/P/Bld) 96 mL/min/1.73m??? Normal >=60 [facility] Comment on above: Order Comment: Speci men Type: BLOOD SPECIMENOrdering Facility: [facility] Address: [address] [place] [address] Result Comment: Kathy mated Glomerular Filtration Rate [...] actual GFR. Performed By: #### 2 4323-8 ####[facility] LABCLIA [id number] [place] [address] Glucose [Mass/Vol] 143 mg/dL High 74-99 [facility] Comment on above: Order Comment: Speci men Type: BLOOD SPECIMENOrdering Facility: [facility] Address: [address] [place] [address] Result Comment: The [place] Diabetes Association (ADA) provides guidance for cutoff [...] Standards of Medical Care in Diabetes 2016, [place] Diabetes Association. Diabetes Care. 2016.39(Suppl 1). Performed By: #### 2 4323-8 ####[facility] LABCLIA [id number] [place] [address] Potassium [Moles/Vol] 4.2 mmol/L Normal 3.7-5.1 [facility] Comment on above: Order Comment: Speci men Type: BLOOD SPECIMENOrdering Facility: [facility] Address: [address] [place] [address] Performed By: #### 2 4323-8 ####[facility] LABCLIA [id number] [place] [address] Protein [Mass/Vol] 6.5 g/dL Normal 6.3-8.0 [facility] Comment on above: Order Comment: Speci men Type: BLOOD SPECIMENOrdering Facility: [facility] Address: [address] [place], [place] [address] Performed By: #### 2 4323-8 ####[facility] LABCLIA [id number] [place] [address] Sodium [Moles/Vol] 139 mmol/L Normal 136-144 [facility] Comment on above: Order Comment: Speci men Type: BLOOD SPECIMENOrdering Facility: [facility] Address: [address] [id number] Performed By: #### 2 4323-8 ####[facility] LABCLIA [id number] [place] [address] Urea nitrogen [Mass/Vol] 11 mg/dL Normal 9-24 [facility] Comment on above: Order Comment: Speci men Type: BLOOD SPECIMENOrdering Facility: [facility] Address: [address] [id number] Performed By: #### 2 4323-8 ####[facility] LABCLIA [id number] [place] [address] Laboratory - Chemistry and C hemistry - challengeOrdered By: Marina Bailey on 04-02-2024 Albumin [Mass/Vol] 3.8 g/dL Low 3.9 - 4.9 g/dL [facility] ALP [Catalytic activity/Vol] 152 U/L High 38 - 113 U/L [facility] ALT [Catalytic activity/Vol] 16 U/L 10 - 54 U/L [facility] Anion gap [Moles/Vol] 10 mmol/L 8 - 15 mmol/L [facility] Calcium [Mass/Vol] 9.8 mg/dL 8.5 - 10. 2 mg/dL [facility] Chloride [Moles/Vol] 105 mmol/L 98 - 10 7 mmol/L [facility] CO2 [Moles/Vol] 24 mmol/L 22 - 30 mmol/L [facility] Creatinine [Mass/Vol] 0.75 mg/dL 0.73 - 1.22 mg/dL [facility] Glucose [Mass/Vol] 143 mg/dL High 74 - 99 mg/dL [facility] Comment on above: The [place] Diabete s Association (ADA) provides guidance for [...] Standards of Medical Care in Diabetes 2016, [place] Diabetes Association. Diabetes Care. 2016.39(Suppl 1). Potassium [Moles/Vol] 4.2 mmol/L 3.7 - 5.1 mmol/L [facility] Sodium [Moles/Vol] 139 mmol/L 136 - 144 mmol/L [facility] Urea nitrogen [Mass/Vol] 11 mg/dL 9 - 24 mg/dL [facility] Laboratory - Hematology and Cell countson 04-02-2024 Basophils/100 WBC (Bld) 0.5 % [facility] Eosinophils/100 WBC (Bld) 0.5 % [facility] Erythrocyte distribution width (RBC) [Ratio] 16.5 % High 11.5 - 15.0 % [facility] Hematocrit (Bld) [Volume fraction] 34.1 % Low 39.0 - 51.0 % [facility] Lymphocytes/100 WBC (Bld) 23.5 % [facility] MCH (RBC) [Entitic mass] 29.7 pg 26.0 - 34.0 pg [facility] MCHC (RBC) [Mass/Vol] 32.3 g/dL 30.5 - 36.0 g/dL [facility] MCV (RBC) [Entitic vol] 92.2 fL 80.0 - 100.0 fL [facility] Monocytes/100 WBC (Bld) 9.1 % [facility] Neutrophils/100 WBC (Bld) 64.4 % [facility] No Panel InformationOrdered By: Marina Bailey on 04-02-2024 Interpretation and review of laboratory results Abnormal [facility] No Panel Informationon 04-02 Interpretation and review of laboratory results Abnormal [facility] CNPNon 03-18-2024 CNPN Normal [facility] CNPNon 03-07-2024 CNPN Normal [facility] CBC W Auto Differential pane l (Bld)on 03-05-2024 Basophils (Bld) [#/Vol] NINF [facility] Differential cell count method Nom (Bld) Auto [facility] Eosinophils (Bld) [#/Vol] 0.04 10*3/uL [facility] Immature granulocytes (Bld) [#/Vol] 0.04 10*3/uL [facility] Immature granulocytes/100 WBC (Bld) 0.8 % [facility] Lymphocytes (Bld) [#/Vol] 1.62 10*3/uL [facility] Monocytes (Bld) [#/Vol] 0.91 10*3/uL High [facility] Neutrophils (Bld) [#/Vol] 2.67 10*3/uL [facility] Nucleated RBC (Bld) [#/Vol] [facility] Nucleated RBC/100 WBC (Bld) [Ratio] 0.0 % /100 WBC [facility] Platelet mean volume (Bld) [Entitic vol] 8.9 fL Low 9.0 - 12.7 fL [facility] Platelets (Bld) [#/Vol] 301 10*3/uL [facility] WBC (Bld) [#/Vol] 5.30 10*3/uL [facility] Basophils (Bld) [#/Vol] 10*3/uL Normal <0.11 [facility] Comment on above: Order Comment: Speci men Type: BLOOD SPECIMENOrdering Facility: [facility] Address: [address] [place] [address] Performed By: #### 5 7021-8 ####[facility] LABCLIA [id number] [place] [address] Basophils/100 WBC (Bld) 0.4 % Normal [facility] Comment on above: Order Comment: Speci men Type: BLOOD SPECIMENOrdering Facility: [facility] Address: [address] [place] [address] Performed By: #### 5 7021-8 ####[facility] LABCLIA [id number] [place] [address] Differential cell count method Nom (Bld) Auto Normal [facility] Comment on above: Order Comment: Speci men Type: BLOOD SPECIMENOrdering Facility: [facility] Address: [address] [place] [address] Performed By: #### 5 7021-8 ####[facility] LABCLIA [id number] [place] [address] Eosinophils (Bld) [#/Vol] 0.04 10*3/uL Normal <0.46 [facility] Comment on above: Order Comment: Speci men Type: BLOOD SPECIMENOrdering Facility: [facility] Address: [address] [place] [address] Performed By: #### 5 7021-8 ####[facility] LABCLIA [id number] [place] [address] Eosinophils/100 WBC (Bld) 0.8 % Normal [facility] Comment on above: Order Comment: Speci men Type: BLOOD SPECIMENOrdering Facility: [facility] Address: [address] [place] [address] Performed By: #### 5 7021-8 ####[facility] LABCLIA [id number] [place] [address] Erythrocyte distribution width (RBC) [Ratio] 16.4 % High 11.5-15.0 [facility] Comment on above: Order Comment: Speci men Type: BLOOD SPECIMENOrdering Facility: [facility] Address: [address] [place] [address] Performed By: #### 5 7021-8 ####[facility] LABCLIA [id number] [place] [address] Hematocrit (Bld) [Volume fraction] 35.6 % Low 39.0-51.0 [facility] Comment on above: Order Comment: Speci men Type: BLOOD SPECIMENOrdering Facility: [facility] Address: [address] [place] [address] Performed By: #### 5 7021-8 ####[facility] LABCLIA [id number] [place] [address] Hemoglobin (Bld) [Mass/Vol] 11.6 g/dL Low 13.0-17.0 [facility] Comment on above: Order Comment: Speci men Type: BLOOD SPECIMENOrdering Facility: [facility] Address: [address] [place] [address] Performed By: #### 5 7021-8 ####[facility] LABCLIA [id number] [place] [address] Immature granulocytes (Bld) [#/Vol] 0.04 10*3/uL Normal <0.10 [facility] Comment on above: Order Comment: Speci men Type: BLOOD SPECIMENOrdering Facility: [facility] Address: [address] [place] [address] Performed By: #### 5 7021-8 ####[facility] LABCLIA [id number] [place] [address] Immature granulocytes/100 WBC (Bld) 0.8 % Normal [facility] Comment on above: Order Comment: Speci men Type: BLOOD SPECIMENOrdering Facility: [facility] Address: [address] [place] [address] Performed By: #### 5 7021-8 ####[facility] LABCLIA [id number] [place] [address] Lymphocytes (Bld) [#/Vol] 1.62 10*3/uL Normal 1.00-4.00 [facility] Comment on above: Order Comment: Speci men Type: BLOOD SPECIMENOrdering Facility: [facility] Address: [address] [place] [address] Performed By: #### 5 7021-8 ####[facility] LABCLIA [id number] [place] [address] Lymphocytes/100 WBC (Bld) 30.6 % Normal [facility] Comment on above: Order Comment: Speci men Type: BLOOD SPECIMENOrdering Facility: [facility] Address: [address] [place] [address] Performed By: #### 5 7021-8 ####[facility] LABCLIA [id number] [place] [address] MCH (RBC) [Entitic mass] 30.4 pg Normal 26.0-34.0 [facility] Comment on above: Order Comment: Speci men Type: BLOOD SPECIMENOrdering Facility: [facility] Address: [address] [place] [address] Performed By: #### 5 7021-8 ####[facility] LABIA [id number] [place] [address] MCHC (RBC) [Mass/Vol] 32.6 g/dL Normal 30.5-36.0 [facility] Comment on above: Order Comment: Speci men Type: BLOOD SPECIMENOrdering Facility: [facility] Address: [address] [place] [address] Performed By: #### 5 7021-8 ####[facility] LABIA [id number] [place] [address] MCV (RBC) [Entitic vol] 93.4 fL Normal 80.0-100.0 [facility] Comment on above: Order Comment: Speci men Type: BLOOD SPECIMENOrdering Facility: [facility] Address: [address] [place] [address] Performed By: #### 5 7021-8 ####[facility] LABIA [id number] [place] [address] Monocytes (Bld) [#/Vol] 0.91 10*3/uL High <0.87 [facility] Comment on above: Order Comment: Speci men Type: BLOOD SPECIMENOrdering Facility: [facility] Address: [address] [place] [address] Performed By: #### 5 7021-8 ####[facility] LABIA [id number] [place] [address] Monocytes/100 WBC (Bld) 17.2 % Normal [facility] Comment on above: Order Comment: Speci men Type: BLOOD SPECIMENOrdering Facility: [facility] Address: [address] [place] [address] Performed By: #### 5 7021-8 ####[facility] LABCLIA [id number] [place] [address] Neutrophils (Bld) [#/Vol] 2.67 10*3/uL Normal 1.45-7.50 [facility] Comment on above: Order Comment: Speci men Type: BLOOD SPECIMENOrdering Facility: [facility] Address: [address] [place] [address] Performed By: #### 5 7021-8 ####[facility] LABCLIA [id number] [place] [address] Neutrophils/100 WBC (Bld) 50.2 % Normal [facility] Comment on above: Order Comment: Speci men Type: BLOOD SPECIMENOrdering Facility: [facility] Address: [address] [place] [address] Performed By: #### 5 7021-8 ####[facility] LABIA [id number] [place] [address] Nucleated RBC (Bld) [#/Vol] 10*3/uL Normal <0.01 [facility] Comment on above: Order Comment: Speci men Type: BLOOD SPECIMENOrdering Facility: [facility] Address: [address] [place] [address] Performed By: #### 5 7021-8 ####[facility] LABIA [id number] [place] [address] Nucleated RBC/100 WBC (Bld) [Ratio] 0.0 /100 WBC Normal [facility] Comment on above: Order Comment: Speci men Type: BLOOD SPECIMENOrdering Facility: [facility] Address: [address] [place] [address] Performed By: #### 5 7021-8 ####[facility] LABIA [id number] [place] [address] Platelet mean volume (Bld) [Entitic vol] 8.9 fL Low 9.0-12.7 [facility] Comment on above: Order Comment: Speci men Type: BLOOD SPECIMENOrdering Facility: [facility] Address: [address] [place] [address] Performed By: #### 5 7021-8 ####[facility] LABCLIA [id number] [place] [address] Platelets (Bld) [#/Vol] 301 10*3/uL Normal 150-400 [facility] Comment on above: Order Comment: Speci men Type: BLOOD SPECIMENOrdering Facility: [facility] Address: [address] [place] [address] Performed By: #### 5 7021-8 ####[facility] [id number] [place] [address] RBC (Bld) [#/Vol] 3.81 10*6/uL Low 4.20-6.00 [facility] Comment on above: Order Comment: Speci men Type: BLOOD SPECIMENOrdering Facility: [facility] Address: [address] [place] [address] Performed By: #### 5 7021-8 ####[facility] LABIA [id number] [place] [address] WBC (Bld) [#/Vol] 5.30 10*3/uL Normal 3.70-11.00 [facility] Comment on above: Order Comment: Speci men Type: BLOOD SPECIMENOrdering Facility: [facility] Address: [address] [place] [address] Performed By: #### 5 7021-8 ####[facility] LABIA [id number] [place] [address] [facility] CBC W AUTO DIFF BLDon [facility] BASOPHILS # BLD AUTO <0.03 [facility] DIFFERENTIAL METHOD BLD Auto [facility] EOSINOPHIL # BLD AUTO 0.04 [facility] LYMPHOCYTES # BLD AUTO 1.62 [facility] MONOCYTES # BLD AUTO 0.91 High [facility] NEUTROPHILS # BLD AUTO 2.67 [facility] NRBC # BLD AUTO <0.01 [facility] NRBC/100 WBC BLD-RTO 0 /100 WBC [facility] PLATELET # BLD AUTO 301 [facility] PMV BLD AUTO 8.9 fL Low 9.0 - 12.7 fL [facility] WBC # BLD AUTO 5.3 [facility] IMM GRANULOCYTES # BLD AUTO 0.04 [facility] IMM GRANULOCYTES/LEUK NFR BLD AUTO 0.8 % [facility] Specimen Type: BLOOD SPECIMEN Ordering Facility: [facility] Address: [address] [place] [address] Original Ordering Provider: [facility]IVEK SMITH [facility] CNOVSPon 03-05-2024 CNOVSP Normal [facility] Cancer Ag19-9 SerPl-aCncon 1 Cancer Ag 19-9 Qn 385.0 [arb'U]/mL High <36.0 C [facility] Comment on above: Order Comment: Speci men Type: BLOOD SPECIMENOrdering Facility: [facility] Address: [address] [place] [address] Result Comment: [facility] er antigen 19-9 test is used as an aid in monitoring response to treatment or recurrence in patients with established pancreatic, hepatobiliary, or gastrointestinal malignancies. Clinical correlation is required.The CA 19-9 Antigen test was performed using the [employer] DXI paramagnetic particle chemiluminescent immunoassay method. Results obtained with different assay methods or kits cannot be used interchangeably. Performed By: #### 2 4108-3 ####[facility] LABCLIA [id number] [place] [address] [place] Comprehensive metabolic 2000 panelOrdered By: Elizabeth Yu on 03-05-2024 Albumin [Mass/Vol] 3.9 g/dL 3.9 - 4.9 g/dL [facility] ALP [Catalytic activity/Vol] 177 U/L High 38 - 113 U/L [facility] ALT [Catalytic activity/Vol] 17 U/L 10 - 54 U/L [facility] Anion gap [Moles/Vol] 11 mmol/L 8 - 15 mmol/L [facility] AST [Catalytic activity/Vol] 19 U/L 14 - 40 U/L [facility] Bilirubin [Mass/Vol] 0.7 mg/dL 0.2 - 1 .3 mg/dL [facility] Calcium [Mass/Vol] 10.2 mg/dL 8.5 - 10. 2 mg/dL [facility] Chloride [Moles/Vol] 105 mmol/L 98 - 10 7 mmol/L [facility] CO2 [Moles/Vol] 22 mmol/L 22 - 30 mmol/L [facility] Creatinine [Mass/Vol] 0.81 mg/dL 0.73 - 1.22 mg/dL [facility] GFR/1.73 sq M.predicted among non-blacks MDRD (S/P/Bld) [Vol rate/Area] 94 mL/min/{1.73_m2} - PINF [facility] Comment on above: Estimated Glomerular Filtration [...] 163 mg/dL High 74 - 99 mg/dL [facility] Comment on above: The [place] Diabete s Association (ADA) provides guidance for [...] Standards of Medical Care in Diabetes 2016, [place] Diabetes Association. Diabetes Care. 2016.39(Suppl 1). Interpretation and review of laboratory results Abnormal [facility] Potassium [Moles/Vol] 4.4 mmol/L 3.7 - 5.1 mmol/L [facility] Protein [Mass/Vol] 6.8 g/dL 6.3 - 8.0 g/dL [facility] Sodium [Moles/Vol] 138 mmol/L 136 - 144 mmol/L [facility] Urea nitrogen [Mass/Vol] 14 mg/dL 9 - 24 mg/dL [facility] Comprehensive metabolic 2000 panelon 03-05-2024 Albumin [Mass/Vol] 3.9 g/dL Normal 3.9-4.9 [facility] Comment on above: Order Comment: Speci men Type: BLOOD SPECIMENOrdering Facility: [facility] Address: [address] [place] [address] Performed By: #### 2 4323-8 ####[facility] LABCLIA [id number] [place] [address] ALP [Catalytic activity/Vol] 177 U/L High 38-113 [facility] Comment on above: Order Comment: Speci men Type: BLOOD SPECIMENOrdering Facility: [facility] Address: [address] [place] [address] Performed By: #### 2 4323-8 ####[facility] LABCLIA [id number] [place] [address] ALT [Catalytic activity/Vol] 17 U/L Normal 10-54 [facility] Comment on above: Order Comment: Speci men Type: BLOOD SPECIMENOrdering Facility: [facility] Address: [address] [place] [address] Performed By: #### 2 4323-8 ####[facility] LABCLIA [id number] [place] [address] Anion gap [Moles/Vol] 11 mmol/L Normal 8-15 [facility] Center Comment on above: Order Comment: Speci men Type: BLOOD SPECIMENOrdering Facility: [facility] Address: [address] [place] [address] Performed By: #### 2 4323-8 ####[facility] LABCLIA [id number] [place] [address] AST [Catalytic activity/Vol] 19 U/L Normal 14-40 [facility] Comment on above: Order Comment: Speci men Type: BLOOD SPECIMENOrdering Facility: [facility] Address: [address] [place] [address] Performed By: #### 2 4323-8 ####[facility] LABCLIA [id number] [place] [address] Bilirubin [Mass/Vol] 0.7 mg/dL Normal 0.2-1.3 [facility] Comment on above: Order Comment: Speci men Type: BLOOD SPECIMENOrdering Facility: [facility] Address: [address] [place] [address] Performed By: #### 2 4323-8 ####[facility] LABCLIA [id number] [place] [address] Calcium [Mass/Vol] 10.2 mg/dL Normal 8.5-10.2 [facility] Comment on above: Order Comment: Speci men Type: BLOOD SPECIMENOrdering Facility: [facility] Address: [address] [place] [address] Performed By: #### 2 4323-8 ####[facility] LABCLIA [id number] [place] [address] Chloride [Moles/Vol] 105 mmol/L Normal 98-107 [facility] Comment on above: Order Comment: Speci men Type: BLOOD SPECIMENOrdering Facility: [facility] Address: [address] [place] [address] Performed By: #### 2 4323-8 ####[facility] LABCLIA [id number] [place] [address] CO2 [Moles/Vol] 22 mmol/L Normal 22-30 [facility] Comment on above: Order Comment: Speci men Type: BLOOD SPECIMENOrdering Facility: [facility] Address: [address] [place] [address] Performed By: #### 2 4323-8 ####[facility] LABCLIA [id number] [place] [address] Creatinine [Mass/Vol] 0.81 mg/dL Normal 0.73-1.22 [facility] Comment on above: Order Comment: Noemí hoff Type: BLOOD SPECIMENOrdering Facility: [facility] Address: [address] [place] [address] Performed By: #### 2 4323-8 ####[facility] LABCLIA [id number] [place] [address] Creatinine and Glomerular filtration rate.predicted panel (S/P/Bld) 94 mL/min/1.73m??? Normal >=60 [facility] Comment on above: Order Comment: Noemí hoff Type: BLOOD SPECIMENOrdering Facility: [facility] Address: [address] [place] [address] Result Comment: Kathy mated Glomerular Filtration Rate [...] actual GFR. Performed By: #### 2 4323-8 ####[facility] LABCLIA [id number] [place] [address] Glucose [Mass/Vol] 163 mg/dL High 74-99 [facility] Comment on above: Order Comment: Noemí hoff Type: BLOOD SPECIMENOrdering Facility: [facility] Address: [address] [place], [place] [id number] Result Comment: The Spanish Diabetes Association (ADA) provides guidance for cutoff [...] Standards of Medical Care in Diabetes 2016, [place] Diabetes Association. Diabetes Care. 2016.39(Suppl 1). Performed By: #### 2 4323-8 ####[facility] LABCLIA [id number] [place] [address] Potassium [Moles/Vol] 4.4 mmol/L Normal 3.7-5.1 [facility] Comment on above: Order Comment: Speci men Type: BLOOD SPECIMENOrdering Facility: [facility] Address: [address] [place] [address] Performed By: #### 2 4323-8 ####[facility] LABCLIA [id number] [place] [address] Protein [Mass/Vol] 6.8 g/dL Normal 6.3-8.0 [facility] Comment on above: Order Comment: Speci men Type: BLOOD SPECIMENOrdering Facility: [facility] Address: [address] [place] [address] Performed By: #### 2 4323-8 ####[facility] LABCLIA [id number] [place] [address] Sodium [Moles/Vol] 138 mmol/L Normal 136-144 [facility] Comment on above: Order Comment: Speci men Type: BLOOD SPECIMENOrdering Facility: [facility] Address: [address] [place] [address] Performed By: #### 2 4323-8 ####[facility] LABCLIA [id number] [place] [address] Urea nitrogen [Mass/Vol] 14 mg/dL Normal 9-24 [facility] Comment on above: Order Comment: Speci men Type: BLOOD SPECIMENOrdering Facility: [facility] Address: [address] [place] [address] Performed By: #### 2 4323-8 ####[facility] LABCLIA [id number] [place] [address] Laboratory - Hematology and Cell countson 03-05-2024 Basophils/100 WBC (Bld) 0.4 % [facility] Eosinophils/100 WBC (Bld) 0.8 % [facility] Erythrocyte distribution width (RBC) [Ratio] 16.4 % High 11.5 - 15.0 % [facility] Hematocrit (Bld) [Volume fraction] 35.6 % Low 39.0 - 51.0 % [facility] Hemoglobin (Bld) [Mass/Vol] 11.6 g/dL Low 13.0 - 17.0 g/dL [facility] Lymphocytes/100 WBC (Bld) 30.6 % [facility] MCH (RBC) [Entitic mass] 30.4 pg 26.0 - 34.0 pg [facility] MCHC (RBC) [Mass/Vol] 32.6 g/dL 30.5 - 36.0 g/dL [facility] MCV (RBC) [Entitic vol] 93.4 fL 80.0 - 100.0 fL [facility] Monocytes/100 WBC (Bld) 17.2 % [facility] Neutrophils/100 WBC (Bld) 50.2 % [facility] RBC (Bld) [#/Vol] 3.81 10*6/uL Low 4.20 - 6.0 0 m/uL [facility] No Panel Informationon 03-05 Interpretation and review of laboratory results Abnormal [facility] CBC W Auto Differential pane l (Bld)on 02-12-2024 Basophils (Bld) [#/Vol] NINF [facility] Basophils/100 WBC (Bld) 0.4 % [facility] Differential cell count method Nom (Bld) Auto [facility] Eosinophils (Bld) [#/Vol] 0.06 10*3/uL NINF [facility] Eosinophils/100 WBC (Bld) 1.3 % [facility] Erythrocyte distribution width (RBC) [Ratio] 16.0 % High 11.5 - 15.0 % [facility] Hematocrit (Bld) [Volume fraction] 34.0 % Low 39.0 - 51.0 % [facility] Hemoglobin (Bld) [Mass/Vol] 11.3 g/dL Low 13.0 - 17.0 g/dL [facility] Immature granulocytes (Bld) [#/Vol] [facility] Immature granulocytes/100 WBC (Bld) 0.4 % [facility] Interpretation and review of laboratory results Abnormal [facility] Lymphocytes (Bld) [#/Vol] 1.65 10*3/uL [facility] Lymphocytes/100 WBC (Bld) 35.9 % [facility] MCH (RBC) [Entitic mass] 30.5 pg 26.0 - 34.0 pg [facility] MCHC (RBC) [Mass/Vol] 33.2 g/dL 30.5 - 36.0 g/dL [facility] MCV (RBC) [Entitic vol] 91.9 fL 80.0 - 100.0 fL [facility] Monocytes (Bld) [#/Vol] 0.63 10*3/uL [facility] Monocytes/100 WBC (Bld) 13.7 % [facility] Neutrophils (Bld) [#/Vol] 2.22 10*3/uL [facility] Neutrophils/100 WBC (Bld) 48.3 % [facility] Nucleated RBC (Bld) [#/Vol] [facility] Nucleated RBC/100 WBC (Bld) [Ratio] 0.0 % /100 WBC [facility] Platelet mean volume (Bld) [Entitic vol] 9.0 fL 9.0 - 12.7 fL [facility] Platelets (Bld) [#/Vol] 291 10*3/uL [facility] RBC (Bld) [#/Vol] 3.70 10*6/uL Low 4.20 - 6.0 0 m/uL [facility] WBC (Bld) [#/Vol] 4.60 10*3/uL [facility] Basophils (Bld) [#/Vol] 10*3/uL Normal <0.11 [facility] Comment on above: Order Comment: Speci men Type: BLOOD SPECIMENOrdering Facility: [facility] Address: [address] [place] [address] Performed By: #### 5 7021-8 ####[facility] LABCLIA [id number] [place] [address] Basophils/100 WBC (Bld) 0.4 % Normal [facility] Comment on above: Order Comment: Speci men Type: BLOOD SPECIMENOrdering Facility: [facility] Address: [address] [place] [address] Performed By: #### 5 7021-8 ####[facility] LABCLIA [id number] [place] [address] Differential cell count method Nom (Bld) Auto Normal [facility] Comment on above: Order Comment: Speci men Type: BLOOD SPECIMENOrdering Facility: [facility] Address: [address] [place] [address] Performed By: #### 5 7021-8 ####[facility] LABCLIA [id number] [place] [address] Eosinophils (Bld) [#/Vol] 0.06 10*3/uL Normal <0.46 [facility] Comment on above: Order Comment: Speci men Type: BLOOD SPECIMENOrdering Facility: [facility] Address: [address] [place] [address] Performed By: #### 5 7021-8 ####[facility] LABCLIA [id number] [place] [address] Eosinophils/100 WBC (Bld) 1.3 % Normal [facility] Comment on above: Order Comment: Speci men Type: BLOOD SPECIMENOrdering Facility: [facility] Address: [address] [place] [address] Performed By: #### 5 7021-8 ####[facility] LABCLIA [id number] [place] [address] Erythrocyte distribution width (RBC) [Ratio] 16.0 % High 11.5-15.0 [facility] Comment on above: Order Comment: Speci men Type: BLOOD SPECIMENOrdering Facility: [facility] Address: [address] [place] [address] Performed By: #### 5 7021-8 ####[facility] LABCLIA [id number] [place] [address] Hematocrit (Bld) [Volume fraction] 34.0 % Low 39.0-51.0 [facility] Comment on above: Order Comment: Speci men Type: BLOOD SPECIMENOrdering Facility: [facility] Address: [address] [place] [address] Performed By: #### 5 7021-8 ####[facility] LABCLIA [id number] [place] [address] Hemoglobin (Bld) [Mass/Vol] 11.3 g/dL Low 13.0-17.0 [facility] Comment on above: Order Comment: Speci men Type: BLOOD SPECIMENOrdering Facility: [facility] Address: [address] [place] [address] Performed By: #### 5 7021-8 ####[facility] LABCLIA [id number] [place] [address] Immature granulocytes (Bld) [#/Vol] 10*3/uL Normal <0.10 [facility] Comment on above: Order Comment: Speci men Type: BLOOD SPECIMENOrdering Facility: [facility] Address: [address] [place] [address] Performed By: #### 5 7021-8 ####[facility] LABCLIA [id number] [place] [address] Immature granulocytes/100 WBC (Bld) 0.4 % Normal [facility] Comment on above: Order Comment: Speci men Type: BLOOD SPECIMENOrdering Facility: [facility] Address: [address] [place] [address] Performed By: #### 5 7021-8 ####[facility] LABCLIA [id number] [place] [address] Lymphocytes (Bld) [#/Vol] 1.65 10*3/uL Normal 1.00-4.00 [facility] Comment on above: Order Comment: Speci men Type: BLOOD SPECIMENOrdering Facility: [facility] Address: [address] [place] [address] Performed By: #### 5 7021-8 ####[facility] LABCLIA [id number] [place] [address] Lymphocytes/100 WBC (Bld) 35.9 % Normal [facility] Comment on above: Order Comment: Speci men Type: BLOOD SPECIMENOrdering Facility: [facility] Address: [address] [place] [address] Performed By: #### 5 7021-8 ####[facility] LABCLIA [id number] [place] [address] MCH (RBC) [Entitic mass] 30.5 pg Normal 26.0-34.0 [facility] Comment on above: Order Comment: Speci men Type: BLOOD SPECIMENOrdering Facility: [facility] Address: [address] [place] [address] Performed By: #### 5 7021-8 ####[facility] LABCLIA [id number] [place] [address] MCHC (RBC) [Mass/Vol] 33.2 g/dL Normal 30.5-36.0 [facility] Comment on above: Order Comment: Speci men Type: BLOOD SPECIMENOrdering Facility: [facility] Address: [address] [place] [address] Performed By: #### 5 7021-8 ####[facility] LABCLIA [id number] [place] [address] MCV (RBC) [Entitic vol] 91.9 fL Normal 80.0-100.0 [facility] Comment on above: Order Comment: Speci men Type: BLOOD SPECIMENOrdering Facility: [facility] Address: [address] [place] [address] Performed By: #### 5 7021-8 ####[facility] LABCLIA [id number] [place] [address] Monocytes (Bld) [#/Vol] 0.63 10*3/uL Normal <0.87 [facility] Comment on above: Order Comment: Speci men Type: BLOOD SPECIMENOrdering Facility: [facility] Address: [address] [place] [address] Performed By: #### 5 7021-8 ####[facility] LABCLIA [id number] [place] [address] Monocytes/100 WBC (Bld) 13.7 % Normal [facility] Comment on above: Order Comment: Speci men Type: BLOOD SPECIMENOrdering Facility: [facility] Address: [address] [place] [address] Performed By: #### 5 7021-8 ####[facility] LABCLIA [id number] [place] [address] Neutrophils (Bld) [#/Vol] 2.22 10*3/uL Normal 1.45-7.50 [facility] Comment on above: Order Comment: Speci men Type: BLOOD SPECIMENOrdering Facility: [facility] Address: [address] [place] [address] Performed By: #### 5 7021-8 ####[facility] LABCLIA [id number] [place] [address] Neutrophils/100 WBC (Bld) 48.3 % Normal [facility] Comment on above: Order Comment: Speci men Type: BLOOD SPECIMENOrdering Facility: [facility] Address: [address] [place] [address] Performed By: #### 5 7021-8 ####[facility] LABCLIA [id number] [place] [address] Nucleated RBC (Bld) [#/Vol] 10*3/uL Normal <0.01 [facility] Comment on above: Order Comment: Speci men Type: BLOOD SPECIMENOrdering Facility: [facility] Address: [address] [place] [address] Performed By: #### 5 7021-8 ####[facility] LABCLIA [id number] [place] [address] Nucleated RBC/100 WBC (Bld) [Ratio] 0.0 /100 WBC Normal [facility] Comment on above: Order Comment: Speci men Type: BLOOD SPECIMENOrdering Facility: [facility] Address: [address] [place] [address] Performed By: #### 5 7021-8 ####[facility] LABCLIA [id number] [place] [address] Platelet mean volume (Bld) [Entitic vol] 9.0 fL Normal 9.0-12.7 [facility] Comment on above: Order Comment: Speci men Type: BLOOD SPECIMENOrdering Facility: [facility] Address: [address] [place] [address] Performed By: #### 5 7021-8 ####[facility] LABIA [id number] [place] [address] Platelets (Bld) [#/Vol] 291 10*3/uL Normal 150-400 [facility] Comment on above: Order Comment: Speci men Type: BLOOD SPECIMENOrdering Facility: [facility] Address: [address] [place] [address] Performed By: #### 5 7021-8 ####[facility] LABIA [id number] [place] [address] RBC (Bld) [#/Vol] 3.70 10*6/uL Low 4.20-6.00 [facility] Comment on above: Order Comment: Speci men Type: BLOOD SPECIMENOrdering Facility: [facility] Address: [address] [place] [address] Performed By: #### 5 7021-8 ####[facility] LABIA [id number] [place] [address] WBC (Bld) [#/Vol] 4.60 10*3/uL Normal 3.70-11.00 [facility] Comment on above: Order Comment: Speci men Type: BLOOD SPECIMENOrdering Facility: [facility] Address: [address] [place] [id number] Performed By: #### 5 7021-8 ####[facility] LABCLIA [id number] [place] [address] CNOVSPon 02-12-2024 CNOVSP Normal [facility] Cancer Ag19-9 SerPl-aCncon 0 02-12-2024 Cancer Ag 19-9 Qn 371.0 [arb'U]/mL High <36.0 [facility] Comment on above: Order Comment: Speci men Type: BLOOD SPECIMENOrdering Facility: [facility] Address: [address] [place], [place] [address] Result Comment: [facility] er antigen 19-9 test is used as an aid in monitoring response to treatment or recurrence in patients with established pancreatic, hepatobiliary, or gastrointestinal malignancies. Clinical correlation is required.The CA 19-9 Antigen test was performed using the [employer] DXI paramagnetic particle chemiluminescent immunoassay method. Results obtained with different assay methods or kits cannot be used interchangeably. Performed By: #### 2 4108-3 ####[facility] LABCLIA [id number] [place] [id number] [place] Comprehensive metabolic 2000 panelOrdered By: Elizabeth Yu on 02-12-2024 Albumin [Mass/Vol] 4.1 g/dL 3.9 - 4.9 g/dL [facility] ALP [Catalytic activity/Vol] 184 U/L High 38 - 113 U/L [facility] ALT [Catalytic activity/Vol] 12 U/L 10 - 54 U/L [facility] Anion gap [Moles/Vol] 11 mmol/L 8 - 15 mmol/L [facility] AST [Catalytic activity/Vol] 12 U/L Low 14 - 40 U/L [facility] Bilirubin [Mass/Vol] 0.7 mg/dL 0.2 - 1 .3 mg/dL [facility] Calcium [Mass/Vol] 10.6 mg/dL High 8.5 - 10. 2 mg/dL [facility] Chloride [Moles/Vol] 104 mmol/L 98 - 10 7 mmol/L [facility] CO2 [Moles/Vol] 23 mmol/L 22 - 30 mmol/L [facility] Creatinine [Mass/Vol] 0.80 mg/dL 0.73 - 1.22 mg/dL [facility] GFR/1.73 sq M.predicted among non-blacks MDRD (S/P/Bld) [Vol rate/Area] 94 mL/min/{1.73_m2} - PINF [facility] Comment on above: Estimated Glomerular Filtration [...] 201 mg/dL High 74 - 99 mg/dL [facility] Comment on above: The [place] Diabete s Association (ADA) provides guidance for [...] Standards of Medical Care in Diabetes 2016, [place] Diabetes Association. Diabetes Care. 2016.39(Suppl 1). Interpretation and review of laboratory results Abnormal [facility] Potassium [Moles/Vol] 4.5 mmol/L 3.7 - 5.1 mmol/L [facility] Protein [Mass/Vol] 6.8 g/dL 6.3 - 8.0 g/dL [facility] Sodium [Moles/Vol] 138 mmol/L 136 - 144 mmol/L [facility] Urea nitrogen [Mass/Vol] 12 mg/dL 9 - 24 mg/dL [facility] Comprehensive metabolic 2000 panelon 02-12-2024 Albumin [Mass/Vol] 4.1 g/dL Normal 3.9-4.9 [facility] Comment on above: Order Comment: Speci men Type: BLOOD SPECIMENOrdering Facility: [facility] Address: [address] [place] [address] Performed By: #### 2 4323-8 ####[facility] LABCLIA [id number] [place] [address] ALP [Catalytic activity/Vol] 184 U/L High 38-113 [facility] Comment on above: Order Comment: Speci men Type: BLOOD SPECIMENOrdering Facility: [facility] Address: [address] [place] [address] Performed By: #### 2 4323-8 ####[facility] LABCLIA [id number] [place] [address] ALT [Catalytic activity/Vol] 12 U/L Normal 10-54 [facility] Comment on above: Order Comment: Speci men Type: BLOOD SPECIMENOrdering Facility: [facility] Address: [address] [place] [address] Performed By: #### 2 4323-8 ####[facility] LABCLIA [id number] [place] [address] Anion gap [Moles/Vol] 11 mmol/L Normal 8-15 [facility] Comment on above: Order Comment: Speci men Type: BLOOD SPECIMENOrdering Facility: [facility] Address: [address] [place] [address] Performed By: #### 2 4323-8 ####[facility] LABCLIA [id number] [place] [address] AST [Catalytic activity/Vol] 12 U/L Low 14-40 [facility] Comment on above: Order Comment: Speci men Type: BLOOD SPECIMENOrdering Facility: [facility] Address: [address] [place] [address] Performed By: #### 2 4323-8 ####[facility] LABCLIA [id number] [place] [address] Bilirubin [Mass/Vol] 0.7 mg/dL Normal 0.2-1.3 [facility] Comment on above: Order Comment: Speci men Type: BLOOD SPECIMENOrdering Facility: [facility] Address: [address] [place] [address] Performed By: #### 2 4323-8 ####[facility] LABCLIA [id number] [place] [address] Calcium [Mass/Vol] 10.6 mg/dL High 8.5-10.2 [facility] Comment on above: Order Comment: Speci men Type: BLOOD SPECIMENOrdering Facility: [facility] Address: [address] [place] [address] Performed By: #### 2 4323-8 ####[facility] LABCLIA [id number] [place] [address] Chloride [Moles/Vol] 104 mmol/L Normal 98-107 [facility] Comment on above: Order Comment: Speci men Type: BLOOD SPECIMENOrdering Facility: [facility] Address: [address] [place] [address] Performed By: #### 2 4323-8 ####[facility] LABCLIA [id number] [place] [address] CO2 [Moles/Vol] 23 mmol/L Normal 22-30 [facility] Comment on above: Order Comment: Speci men Type: BLOOD SPECIMENOrdering Facility: [facility] Address: [address] [place] [address] Performed By: #### 2 4323-8 ####[facility] LABCLIA [id number] [place] [address] Creatinine [Mass/Vol] 0.80 mg/dL Normal 0.73-1.22 [facility] Comment on above: Order Comment: Speci men Type: BLOOD SPECIMENOrdering Facility: [facility] Address: [address] [place] [address] Performed By: #### 2 4323-8 ####[facility] LABCLIA [id number] [place] [address] Creatinine and Glomerular filtration rate.predicted panel (S/P/Bld) 94 mL/min/1.73m??? Normal >=60 [facility] Comment on above: Order Comment: Specmack hoff Type: BLOOD SPECIMENOrdering Facility: [facility] [facility] Address: [address] [place] [address] Result Comment: Kathy mated Glomerular Filtration Rate [...] actual GFR. Performed By: #### 2 4323-8 ####[facility] LABCLIA [id number] [place] [address] Glucose [Mass/Vol] 201 mg/dL High 74-99 [facility] Comment on above: Order Comment: Specmack hoff Type: BLOOD SPECIMENOrdering Facility: [facility] Address: [address] [place] [address] Result Comment: The [place] Diabetes Association (ADA) provides guidance for cutoff [...] Standards of Medical Care in Diabetes 2016, [place] Diabetes Association. Diabetes Care. 2016.39(Suppl 1). Performed By: #### 2 4323-8 ####[facility] LABCLIA [id number] [place] [address] Potassium [Moles/Vol] 4.5 mmol/L Normal 3.7-5.1 [facility] Comment on above: Order Comment: Speci men Type: BLOOD SPECIMENOrdering Facility: [facility] Address: [address] [place] [address] Performed By: #### 2 4323-8 ####[facility] LABCLIA [id number] [place] [address] Protein [Mass/Vol] 6.8 g/dL Normal 6.3-8.0 [facility] Comment on above: Order Comment: Speci men Type: BLOOD SPECIMENOrdering Facility: [facility] Address: [address] [place] [address] Performed By: #### 2 4323-8 ####[facility] LABCLIA [id number] [place] [address] Sodium [Moles/Vol] 138 mmol/L Normal 136-144 [facility] Comment on above: Order Comment: Speci men Type: BLOOD SPECIMENOrdering Facility: [facility] Address: [address] [place] [address] Performed By: #### 2 4323-8 ####[facility] LABCLIA [id number] [place] [address] Urea nitrogen [Mass/Vol] 12 mg/dL Normal 9-24 [facility] Comment on above: Order Comment: Speci men Type: BLOOD SPECIMENOrdering Facility: [facility] Address: [address] [place] [address] Performed By: #### 2 4323-8 ####[facility] LABCLIA [id number] [place] [address] CBC W Auto Differential pane l (Bld)on 01-23-2024 Basophils (Bld) [#/Vol] [facility] Basophils/100 WBC (Bld) 0.4 % [facility] Differential cell count method Nom (Bld) Auto [facility] Eosinophils (Bld) [#/Vol] 0.05 10*3/uL [facility] Eosinophils/100 WBC (Bld) 1.1 % [facility] Erythrocyte distribution width (RBC) [Ratio] 15.8 % High 11.5 - 15.0 % [facility] Hematocrit (Bld) [Volume fraction] 35.1 % Low 39.0 - 51.0 % [facility] Hemoglobin (Bld) [Mass/Vol] 11.5 g/dL Low 13.0 - 17.0 g/dL [facility] Immature granulocytes (Bld) [#/Vol] [facility] Immature granulocytes/100 WBC (Bld) 0.4 % [facility] Interpretation and review of laboratory results Abnormal [facility] Lymphocytes (Bld) [#/Vol] 1.62 10*3/uL [facility] Lymphocytes/100 WBC (Bld) 35.7 % [facility] MCH (RBC) [Entitic mass] 29.9 pg 26.0 - 34.0 pg [facility] MCHC (RBC) [Mass/Vol] 32.8 g/dL 30.5 - 36.0 g/dL [facility] MCV (RBC) [Entitic vol] 91.4 fL 80.0 - 100.0 fL [facility] Monocytes (Bld) [#/Vol] 0.59 10*3/uL [facility] Monocytes/100 WBC (Bld) 13.0 % [facility] Neutrophils (Bld) [#/Vol] 2.24 10*3/uL [facility] Neutrophils/100 WBC (Bld) 49.4 % [facility] Nucleated RBC (Bld) [#/Vol] [facility] Nucleated RBC/100 WBC (Bld) [Ratio] 0.0 % /100 WBC [facility] Platelet mean volume (Bld) [Entitic vol] 9.0 fL 9.0 - 12.7 fL [facility] Platelets (Bld) [#/Vol] 277 10*3/uL [facility] RBC (Bld) [#/Vol] 3.84 10*6/uL Low 4.20 - 6.0 0 m/uL [facility] WBC (Bld) [#/Vol] 4.54 10*3/uL [facility] Basophils (Bld) [#/Vol] 10*3/uL Normal <0.11 [facility] Comment on above: Order Comment: Speci men Type: BLOOD SPECIMENOrdering Facility: [facility] Address: [address] [place] [address] Performed By: #### 5 7021-8 ####[facility] LABCLIA [id number] [place] [address] Basophils/100 WBC (Bld) 0.4 % Normal [facility] Comment on above: Order Comment: Speci men Type: BLOOD SPECIMENOrdering Facility: [facility] Address: [address] [place] [address] Performed By: #### 5 7021-8 ####[facility] LABCLIA [id number] [place] [address] Differential cell count method Nom (Bld) Auto Normal [facility] Comment on above: Order Comment: Speci men Type: BLOOD SPECIMENOrdering Facility: [facility] Address: [address] [place] [address] Performed By: #### 5 7021-8 ####[facility] LABCLIA [id number] [place] [address] Eosinophils (Bld) [#/Vol] 0.05 10*3/uL Normal <0.46 [facility] Comment on above: Order Comment: Speci men Type: BLOOD SPECIMENOrdering Facility: [facility] Address: [address] [place] [address] Performed By: #### 5 7021-8 ####[facility] LABCLIA [id number] [place] [address] Eosinophils/100 WBC (Bld) 1.1 % Normal [facility] Comment on above: Order Comment: Speci men Type: BLOOD SPECIMENOrdering Facility: [facility] Address: [address] [place] [address] Performed By: #### 5 7021-8 ####[facility] LABCLIA [id number] [place] [address] Erythrocyte distribution width (RBC) [Ratio] 15.8 % High 11.5-15.0 [facility] Comment on above: Order Comment: Speci men Type: BLOOD SPECIMENOrdering Facility: [facility] Address: [address] [place] [address] Performed By: #### 5 7021-8 ####[facility] LABCLIA [id number] [place] [address] Hematocrit (Bld) [Volume fraction] 35.1 % Low 39.0-51.0 [facility] Comment on above: Order Comment: Speci men Type: BLOOD SPECIMENOrdering Facility: [facility] Address: [address] [place] [address] Performed By: #### 5 7021-8 ####[facility] LABCLIA [id number] [place] [address] Hemoglobin (Bld) [Mass/Vol] 11.5 g/dL Low 13.0-17.0 [facility] Comment on above: Order Comment: Speci men Type: BLOOD SPECIMENOrdering Facility: [facility] Address: [address] [place] [address] Performed By: #### 5 7021-8 ####[facility] LABIA [id number] [place] [address] Immature granulocytes (Bld) [#/Vol] 10*3/uL Normal <0.10 [facility] Comment on above: Order Comment: Speci men Type: BLOOD SPECIMENOrdering Facility: [facility] Address: [address] [place] [address] Performed By: #### 5 7021-8 ####[facility] LABIA [id number] [place] [address] Immature granulocytes/100 WBC (Bld) 0.4 % Normal [facility] Comment on above: Order Comment: Speci men Type: BLOOD SPECIMENOrdering Facility: [facility] Address: [address] [place] [address] Performed By: #### 5 7021-8 ####[facility] LABCLIA [id number] [place] [address] Lymphocytes (Bld) [#/Vol] 1.62 10*3/uL Normal 1.00-4.00 [facility] Comment on above: Order Comment: Speci men Type: BLOOD SPECIMENOrdering Facility: [facility] Address: [address] [place] [address] Performed By: #### 5 7021-8 ####[facility] LABCLIA [id number] [place] [address] Lymphocytes/100 WBC (Bld) 35.7 % Normal [facility] Comment on above: Order Comment: Speci men Type: BLOOD SPECIMENOrdering Facility: [facility] Address: [address] [place] [address] Performed By: #### 5 7021-8 ####[facility] LABCLIA [id number] [place] [address] MCH (RBC) [Entitic mass] 29.9 pg Normal 26.0-34.0 [facility] Comment on above: Order Comment: Speci men Type: BLOOD SPECIMENOrdering Facility: [facility] Address: [address] [place] [address] Performed By: #### 5 7021-8 ####[facility] LABCLIA [id number] [place] [address] MCHC (RBC) [Mass/Vol] 32.8 g/dL Normal 30.5-36.0 [facility] Comment on above: Order Comment: Speci men Type: BLOOD SPECIMENOrdering Facility: [facility] Address: [address] [place] [address] Performed By: #### 5 7021-8 ####[facility] LABIA [id number] [place] [address] MCV (RBC) [Entitic vol] 91.4 fL Normal 80.0-100.0 [facility] Comment on above: Order Comment: Speci men Type: BLOOD SPECIMENOrdering Facility: [facility] Address: [address] [place] [address] Performed By: #### 5 7021-8 ####[facility] LABCLIA [id number] [place] [address] Monocytes (Bld) [#/Vol] 0.59 10*3/uL Normal <0.87 [facility] Comment on above: Order Comment: Speci men Type: BLOOD SPECIMENOrdering Facility: [facility] Address: [address] [place] [address] Performed By: #### 5 7021-8 ####[facility] LABCLIA [id number] [place] [address] Monocytes/100 WBC (Bld) 13.0 % Normal [facility] Comment on above: Order Comment: Speci men Type: BLOOD SPECIMENOrdering Facility: [facility] Address: [address] [place] [address] Performed By: #### 5 7021-8 ####[facility] LABCLIA [id number] [place] [address] Neutrophils (Bld) [#/Vol] 2.24 10*3/uL Normal 1.45-7.50 [facility] Comment on above: Order Comment: Speci men Type: BLOOD SPECIMENOrdering Facility: [facility] Address: [address] [place] [address] Performed By: #### 5 7021-8 ####[facility] LABCLIA [id number] [place] [address] Neutrophils/100 WBC (Bld) 49.4 % Normal [facility] Comment on above: Order Comment: Speci men Type: BLOOD SPECIMENOrdering Facility: [facility] Address: [address] [place] [address] Performed By: #### 5 7021-8 ####[facility] LABCLIA [id number] [place] [address] Nucleated RBC (Bld) [#/Vol] 10*3/uL Normal <0.01 [facility] Comment on above: Order Comment: Speci men Type: BLOOD SPECIMENOrdering Facility: [facility] Address: [address] [place] [address] Performed By: #### 5 7021-8 ####[facility] LABCLIA [id number] [place] [address] Nucleated RBC/100 WBC (Bld) [Ratio] 0.0 /100 WBC Normal [facility] Comment on above: Order Comment: Speci men Type: BLOOD SPECIMENOrdering Facility: [facility] Address: [address] [place] [address] Performed By: #### 5 7021-8 ####[facility] LABCLIA [id number] [place] [address] Platelet mean volume (Bld) [Entitic vol] 9.0 fL Normal 9.0-12.7 [facility] Comment on above: Order Comment: Speci men Type: BLOOD SPECIMENOrdering Facility: [facility] Address: [address] [place] [address] Performed By: #### 5 7021-8 ####[facility] LABCLIA [id number] [place] [address] Platelets (Bld) [#/Vol] 277 10*3/uL Normal 150-400 [facility] Comment on above: Order Comment: Speci men Type: BLOOD SPECIMENOrdering Facility: [facility] Address: [address] [place] [address] Performed By: #### 5 7021-8 ####[facility] LABCLIA [id number] [place] [address] RBC (Bld) [#/Vol] 3.84 10*6/uL Low 4.20-6.00 [facility] Comment on above: Order Comment: Speci men Type: BLOOD SPECIMENOrdering Facility: [facility] Address: [address] [place] [address] Performed By: #### 5 7021-8 ####[facility] LABCLIA [id number] [place] [address] WBC (Bld) [#/Vol] 4.54 10*3/uL Normal 3.70-11.00 [facility] Comment on above: Order Comment: Speci men Type: BLOOD SPECIMENOrdering Facility: [facility] Address: [address] [place] [address] Performed By: #### 5 7021-8 ####[facility] LABCLIA [id number] [place] [address] CNOVSPon 01-23-2024 CNOVSP Normal [facility] Cancer Ag19-9 SerPl-aCncon 0 01-23-2024 Cancer Ag 19-9 Qn 444.0 [arb'U]/mL High <36.0 [facility] Comment on above: Order Comment: Speci men Type: BLOOD SPECIMENOrdering Facility: [facility] Address: [address] [place] [address] Result Comment: [facility] er antigen 19-9 test is used as an aid in monitoring response to treatment or recurrence in patients with established pancreatic, hepatobiliary, or gastrointestinal malignancies. Clinical correlation is required.The CA 19-9 Antigen test was performed using the [employer] DXI paramagnetic particle chemiluminescent immunoassay method. Results obtained with different assay methods or kits cannot be used interchangeably. Performed By: #### 2 4108-3 ####[facility] LABCLIA [id number] [place] [id number] [place] Comprehensive metabolic 2000 panelon 01-23-2024 Albumin [Mass/Vol] 4.0 g/dL Normal 3.9-4.9 [facility] Comment on above: Order Comment: Speci men Type: BLOOD SPECIMENOrdering Facility: [facility] Address: [address] [place] [address] Result Comment: Josh ected result: Previously reported as 4.1 g/dL on 01/23/2024 at 10:24 AM EDT. Performed By: #### 2 4323-8 ####[facility] LABCLIA [id number] [place] [address] [place] ALP [Catalytic activity/Vol] 185 U/L High 38-113 [facility] Comment on above: Order Comment: Speci men Type: BLOOD SPECIMENOrdering Facility: [facility] Address: [address] [place] [address] Result Comment: Josh ected result: Previously reported as 190 U/L on 01/23/2024 at 10:24 AM EDT. Performed By: #### 2 4323-8 ####[facility] LABIA [id number] [address] [place] ALT [Catalytic activity/Vol] 30 U/L Normal 10-54 [facility] Comment on above: Order Comment: Speci men Type: BLOOD SPECIMENOrdering Facility: [facility] Address: [address] [place] [address] Result Comment: Josh ected result: Previously reported as 22 U/L on 01/23/2024 at 10:24 AM EDT. Performed By: #### 2 4323-8 ####[facility] LABIA [id number] [place] [address] [place] Anion gap [Moles/Vol] 15 mmol/L Normal 8-15 [facility] Comment on above: Order Comment: Speci men Type: BLOOD SPECIMENOrdering Facility: [facility] Address: [address] [place] [address] Performed By: #### 2 4323-8 ####[facility] LABIA [id number] [place] [address] [place] AST [Catalytic activity/Vol] 27 U/L Normal 14-40 [facility] Comment on above: Order Comment: Speci men Type: BLOOD SPECIMENOrdering Facility: [facility] Address: [address], [place] [address] Result Comment: Josh ected result: Previously reported as 16 U/L on 01/23/2024 at 10:24 AM EDT. Performed By: #### 2 4323-8 ####[facility] LABCLIA [id number] [place] [address] [place] Bilirubin [Mass/Vol] 0.7 mg/dL Normal 0.2-1.3 [facility] Comment on above: Order Comment: Speci men Type: BLOOD SPECIMENOrdering Facility: [facility] Address: [address] [place] [address] Performed By: #### 2 4323-8 ####[facility] LABIA [id number] [place] [address] [place] Calcium [Mass/Vol] 10.4 mg/dL High 8.5-10.2 [facility] Comment on above: Order Comment: Speci men Type: BLOOD SPECIMENOrdering Facility: [facility] Address: [address] [place] [address] Result Comment: Josh ected result: Previously reported as 10.5 mg/dL on 01/23/2024 at 10:24 AM EDT. Performed By: #### 2 4323-8 ####[facility] LABIA [id number] [place] [address] [place] Chloride [Moles/Vol] 102 mmol/L Normal 98-107 [facility] Comment on above: Order Comment: Speci men Type: BLOOD SPECIMENOrdering Facility: [facility] Address: [address] [place] [address] Result Comment: Resu lt rechecked. Performed By: #### 2 4323-8 ####[facility] LABIA [id number] [place] [address] [place] CO2 [Moles/Vol] 21 mmol/L Low 22-30 [facility] Comment on above: Order Comment: Speci men Type: BLOOD SPECIMENOrdering Facility: [facility] Address: [address] [place] [address] Result Comment: Josh ected result: Previously reported as 24 mmol/L on 01/23/2024 at 10:24 AM EDT. Performed By: #### 2 4323-8 ####[facility] LABCLIA [id number] [place] [address] [place] Creatinine [Mass/Vol] 0.84 mg/dL Normal 0.73-1.22 [facility] Comment on above: Order Comment: Speci men Type: BLOOD SPECIMENOrdering Facility: [facility] Address: [address] [place] [address] Result Comment: Josh ected result: Previously reported as 0.83 mg/dL on 01/23/2024 at 10:24 AM EDT. Performed By: #### 2 4323-8 ####[facility] LABIA [id number] [place] [address] [place] Creatinine and Glomerular filtration rate.predicted panel (S/P/Bld) 93 mL/min/1.73m??? Normal >=60 [facility] Comment on above: Order Comment: Speci men Type: BLOOD SPECIMENOrdering Facility: [facility] Address: [address] [place] [address] Result Comment: Kathy mated Glomerular Filtration Rate [...] actual GFR. Performed By: #### 2 4323-8 ####[facility] LABCLIA [id number] [place] [address] [place] Glucose [Mass/Vol] 144 mg/dL High 74-99 [facility] Comment on above: Order Comment: Speci men Type: BLOOD SPECIMENOrdering Facility: [facility] Address: [address] [place] [address] Result Comment: The [place] Diabetes Association (ADA) provides guidance for cutoff [...] Standards of Medical Care in Diabetes 2016, [place] Diabetes [employer]. Diabetes Care. 2016.39(Suppl 1).Corrected result: Previously reported as 163 mg/dL on 01/23/2024 at 10:24 AM EDT. Performed By: #### 2 4323-8 ####[facility] LABCLIA [id number] [place] [address] [place] Potassium [Moles/Vol] 4.8 mmol/L Normal 3.7-5.1 [facility] Comment on above: Order Comment: Speci men Type: BLOOD SPECIMENOrdering Facility: [facility] Address: [address] [place] [address] Performed By: #### 2 4323-8 ####[facility] LABCLIA [id number] [place] [address] [place] Protein [Mass/Vol] 7.1 g/dL Normal 6.3-8.0 [facility] Comment on above: Order Comment: Speci men Type: BLOOD SPECIMENOrdering Facility: [facility] Address: [address] [place] [address] Result Comment: Josh ected result: Previously reported as 6.7 g/dL on 01/23/2024 at 10:24 AM EDT. Performed By: #### 2 4323-8 ####[facility] LABCLIA [id number] [place] [address] [place] Sodium [Moles/Vol] 138 mmol/L Normal 136-144 [facility] Comment on above: Order Comment: Speci men Type: BLOOD SPECIMENOrdering Facility: [facility] Address: [address] [place] [address] Result Comment: Resu lt rechecked. Performed By: #### 2 4323-8 ####[facility] LABCLIA [id number] [place] [address] [place] Urea nitrogen [Mass/Vol] 12 mg/dL Normal 9-24 [facility] Comment on above: Order Comment: Speci men Type: BLOOD SPECIMENOrdering Facility: [facility] Address: [address] [place] [address] Performed By: #### 2 4323-8 ####[facility] LABCLIA [id number] [place] [address] [place] CA 19-9on 01-04-2024 Cancer Ag 19-9 Qn 290.0 [arb'U]/mL High NINF - 36.0 U/mL [facility] Comment on above: Cancer antigen 19-9 test is used as an aid in monitoring response to treatment or recurrence in patients with established pancreatic, hepatobiliary, or gastrointestinal malignancies. Clinical correlation is required. The CA 19-9 Antigen test was performed using the [email or web address] Unicel DXI paramagnetic particle chemiluminescent immunoassay method. Results obtained with different assay methods or kits cannot be used interchangeably. CNPNon 01-04-2024 CNPN Normal [facility] Cancer Ag 19-9 Qnon 01-04-20 24 Interpretation and review of laboratory results Abnormal [facility] CBC W Auto Differential pane l (Bld)on 01-03-2024 Basophils (Bld) [#/Vol] NINF [facility] Basophils/100 WBC (Bld) 0.4 % [facility] Differential cell count method Nom (Bld) Auto [facility] Eosinophils (Bld) [#/Vol] 0.05 10*3/uL [facility] Eosinophils/100 WBC (Bld) 1.0 % [facility] Erythrocyte distribution width (RBC) [Ratio] 15.8 % High 11.5 - 15.0 % [facility] Hematocrit (Bld) [Volume fraction] 33.7 % Low 39.0 - 51.0 % [facility] Hemoglobin (Bld) [Mass/Vol] 11.1 g/dL Low 13.0 - 17.0 g/dL [facility] Immature granulocytes (Bld) [#/Vol] 0.03 10*3/uL [facility] Immature granulocytes/100 WBC (Bld) 0.6 % [facility] Interpretation and review of laboratory results Abnormal [facility] Lymphocytes (Bld) [#/Vol] 1.69 10*3/uL [facility] Lymphocytes/100 WBC (Bld) 32.4 % [facility] MCH (RBC) [Entitic mass] 30.3 pg 26.0 - 34.0 pg [facility] MCHC (RBC) [Mass/Vol] 32.9 g/dL 30.5 - 36.0 g/dL [facility] MCV (RBC) [Entitic vol] 92.1 fL 80.0 - 100.0 fL [facility] Monocytes (Bld) [#/Vol] 0.79 10*3/uL [facility] Monocytes/100 WBC (Bld) 15.1 % [facility] Neutrophils (Bld) [#/Vol] 2.64 10*3/uL [facility] Neutrophils/100 WBC (Bld) 50.5 % [facility] Nucleated RBC (Bld) [#/Vol] [facility] Nucleated RBC/100 WBC (Bld) [Ratio] 0.0 % /100 WBC [facility] Platelet mean volume (Bld) [Entitic vol] 9.4 fL 9.0 - 12.7 fL [facility] Platelets (Bld) [#/Vol] 288 10*3/uL [facility] RBC (Bld) [#/Vol] 3.66 10*6/uL Low 4.20 - 6.0 0 m/uL [facility] WBC (Bld) [#/Vol] 5.22 10*3/uL [facility] Basophils (Bld) [#/Vol] 10*3/uL Normal <0.11 [facility] Comment on above: Order Comment: Speci men Type: BLOOD SPECIMENOrdering Facility: [facility] Address: [address] [place] [address] Performed By: #### 5 7021-8 ####[facility] LABCLIA [id number] [place] [address] Basophils/100 WBC (Bld) 0.4 % Normal [facility] Comment on above: Order Comment: Speci men Type: BLOOD SPECIMENOrdering Facility: [facility] Address: [address] [place] [address] Performed By: #### 5 7021-8 ####[facility] LABCLIA [id number] [place] [address] Differential cell count method Nom (Bld) Auto Normal [facility] Comment on above: Order Comment: Speci men Type: BLOOD SPECIMENOrdering Facility: [facility] Address: [address] [place] [address] Performed By: #### 5 7021-8 ####[facility] LABCLIA [id number] [place] [address] Eosinophils (Bld) [#/Vol] 0.05 10*3/uL Normal <0.46 [facility] Comment on above: Order Comment: Speci men Type: BLOOD SPECIMENOrdering Facility: [facility] Address: [address] [place] [address] Performed By: #### 5 7021-8 ####[facility] LABCLIA [id number] [place] [address] Eosinophils/100 WBC (Bld) 1.0 % Normal [facility] Comment on above: Order Comment: Speci men Type: BLOOD SPECIMENOrdering Facility: [facility] Address: [address] [place] [address] Performed By: #### 5 7021-8 ####[facility] LABCLIA [id number] [place] [address] Erythrocyte distribution width (RBC) [Ratio] 15.8 % High 11.5-15.0 [facility] Comment on above: Order Comment: Speci men Type: BLOOD SPECIMENOrdering Facility: [facility] Address: [address] [place] [address] Performed By: #### 5 7021-8 ####[facility] LABIA [id number] [place] [address] Hematocrit (Bld) [Volume fraction] 33.7 % Low 39.0-51.0 [facility] Comment on above: Order Comment: Speci men Type: BLOOD SPECIMENOrdering Facility: [facility] Address: [address] [place] [address] Performed By: #### 5 7021-8 ####[facility] LABIA [id number] [place] [address] Hemoglobin (Bld) [Mass/Vol] 11.1 g/dL Low 13.0-17.0 [facility] Comment on above: Order Comment: Speci men Type: BLOOD SPECIMENOrdering Facility: [facility] Address: [address] [place] [address] Performed By: #### 5 7021-8 ####[facility] LABIA [id number] [place] [address] Immature granulocytes (Bld) [#/Vol] 0.03 10*3/uL Normal <0.10 [facility] Comment on above: Order Comment: Speci men Type: BLOOD SPECIMENOrdering Facility: [facility] Address: [address] [place] [address] Performed By: #### 5 7021-8 ####[facility] LABCLIA [id number] [place] [address] Immature granulocytes/100 WBC (Bld) 0.6 % Normal [facility] Comment on above: Order Comment: Speci men Type: BLOOD SPECIMENOrdering Facility: [facility] Address: [address] [place] [address] Performed By: #### 5 7021-8 ####[facility] LABCLIA [id number] [place] [address] Lymphocytes (Bld) [#/Vol] 1.69 10*3/uL Normal 1.00-4.00 [facility] Comment on above: Order Comment: Speci men Type: BLOOD SPECIMENOrdering Facility: [facility] Address: [address] [place] [address] Performed By: #### 5 7021-8 ####[facility] LABCLIA [id number] [place] [address] Lymphocytes/100 WBC (Bld) 32.4 % Normal [facility] Comment on above: Order Comment: Speci men Type: BLOOD SPECIMENOrdering Facility: [facility] Address: [address] [place] [address] Performed By: #### 5 7021-8 ####[facility] LABCLIA [id number] [place] [address] MCH (RBC) [Entitic mass] 30.3 pg Normal 26.0-34.0 [facility] Comment on above: Order Comment: Speci men Type: BLOOD SPECIMENOrdering Facility: [facility] Address: [address] [place] [address] Performed By: #### 5 7021-8 ####[facility] LABCLIA [id number] [place] [address] MCHC (RBC) [Mass/Vol] 32.9 g/dL Normal 30.5-36.0 [facility] Comment on above: Order Comment: Speci men Type: BLOOD SPECIMENOrdering Facility: [facility] Address: [address] [place] [address] Performed By: #### 5 7021-8 ####[facility] LABCLIA [id number] [place] [address] MCV (RBC) [Entitic vol] 92.1 fL Normal 80.0-100.0 [facility] Comment on above: Order Comment: Speci men Type: BLOOD SPECIMENOrdering Facility: [facility] Address: [address] [place] [address] Performed By: #### 5 7021-8 ####[facility] LABCLIA [id number] [place] [address] Monocytes (Bld) [#/Vol] 0.79 10*3/uL Normal <0.87 [facility] Comment on above: Order Comment: Speci men Type: BLOOD SPECIMENOrdering Facility: [facility] Address: [address] [place] [address] Performed By: #### 5 7021-8 ####[facility] LABCLIA [id number] [place] [address] Monocytes/100 WBC (Bld) 15.1 % Normal [facility] Comment on above: Order Comment: Speci men Type: BLOOD SPECIMENOrdering Facility: [facility] Address: [address] [place] [address] Performed By: #### 5 7021-8 ####[facility] LABCLIA [id number] [place] [address] Neutrophils (Bld) [#/Vol] 2.64 10*3/uL Normal 1.45-7.50 [facility] Comment on above: Order Comment: Speci men Type: BLOOD SPECIMENOrdering Facility: [facility] Address: [address] [place] [address] Performed By: #### 5 7021-8 ####[facility] LABCLIA [id number] [place] [address] Neutrophils/100 WBC (Bld) 50.5 % Normal [facility] Comment on above: Order Comment: Speci men Type: BLOOD SPECIMENOrdering Facility: [facility] Address: [address] [place] [address] Performed By: #### 5 7021-8 ####[facility] LABCLIA [id number] [place] [address] Nucleated RBC (Bld) [#/Vol] 10*3/uL Normal <0.01 [facility] Comment on above: Order Comment: Speci men Type: BLOOD SPECIMENOrdering Facility: [facility] Address: [address] [place] [address] Performed By: #### 5 7021-8 ####[facility] LABIA [id number] [place] [address] Nucleated RBC/100 WBC (Bld) [Ratio] 0.0 /100 WBC Normal [facility] Comment on above: Order Comment: Speci men Type: BLOOD SPECIMENOrdering Facility: [facility] Address: [address] [place] [address] Performed By: #### 5 7021-8 ####[facility] LABIA [id number] [place] [address] Platelet mean volume (Bld) [Entitic vol] 9.4 fL Normal 9.0-12.7 [facility] Comment on above: Order Comment: Speci men Type: BLOOD SPECIMENOrdering Facility: [facility] Address: [address] [place] [address] Performed By: #### 5 7021-8 ####[facility] LABIA [id number] [place] [address] Platelets (Bld) [#/Vol] 288 10*3/uL Normal 150-400 [facility] Comment on above: Order Comment: Speci men Type: BLOOD SPECIMENOrdering Facility: [facility] Address: [address] [place] [address] Performed By: #### 5 7021-8 ####[facility] LABIA [id number] [place] [address] RBC (Bld) [#/Vol] 3.66 10*6/uL Low 4.20-6.00 [facility] Comment on above: Order Comment: Speci men Type: BLOOD SPECIMENOrdering Facility: [facility] Address: [address] [place] [address] Performed By: #### 5 7021-8 ####[facility] LABCLIA [id number] [place] [address] WBC (Bld) [#/Vol] 5.22 10*3/uL Normal 3.70-11.00 [facility] Comment on above: Order Comment: Speci men Type: BLOOD SPECIMENOrdering Facility: [facility] Address: [address] [place] [address] Performed By: #### 5 7021-8 ####[facility] LABCLIA [id number] [place] [address] CNOVSPon 01-03-2024 CNOVSP Normal [facility] Cancer Ag19-9 SerPl-aCncon 0 01-03-2024 Cancer Ag 19-9 Qn 290.0 [arb'U]/mL High <36.0 C [facility] Comment on above: Order Comment: Speci men Type: BLOOD SPECIMENOrdering Facility: [facility] Address: [address] [place] [address] Result Comment: [facility] er antigen 19-9 test is used as an aid in monitoring response to treatment or recurrence in patients with established pancreatic, hepatobiliary, or gastrointestinal malignancies. Clinical correlation is required.The CA 19-9 Antigen test was performed using the [employer] Unicel DXI paramagnetic particle chemiluminescent immunoassay method. Results obtained with different assay methods or kits cannot be used interchangeably. Performed By: #### 2 4108-3 ####[facility] LABCLIA [id number] [place] [address] [place] Comprehensive metabolic 2000 panelOrdered By: Elizabeth Yu on 01-03-2024 Albumin [Mass/Vol] 3.9 g/dL 3.9 - 4.9 g/dL [facility] ALP [Catalytic activity/Vol] 175 U/L High 38 - 113 U/L [facility] ALT [Catalytic activity/Vol] 14 U/L 10 - 54 U/L [facility] Anion gap [Moles/Vol] 6 mmol/L Low 8 - 15 mmol/L [facility] AST [Catalytic activity/Vol] 13 U/L Low 14 - 40 U/L [facility] Bilirubin [Mass/Vol] 0.5 mg/dL 0.2 - 1 .3 mg/dL [facility] Calcium [Mass/Vol] 10.3 mg/dL High 8.5 - 10. 2 mg/dL [facility] Chloride [Moles/Vol] 103 mmol/L 98 - 10 7 mmol/L [facility] CO2 [Moles/Vol] 26 mmol/L 22 - 30 mmol/L [facility] Creatinine [Mass/Vol] 0.85 mg/dL 0.73 - 1.22 mg/dL [facility] GFR/1.73 sq M.predicted among non-blacks MDRD (S/P/Bld) [Vol rate/Area] 92 mL/min/{1.73_m2} - PINF [facility] Comment on above: Estimated Glomerular Filtration [...] 169 mg/dL High 74 - 99 mg/dL [facility] Comment on above: The [place] Diabete s Association (ADA) provides guidance for [...] Standards of Medical Care in Diabetes 2016, Spanish Diabetes Association. Diabetes Care. 2016.39(Suppl 1). Interpretation and review of laboratory results Abnormal [facility] Potassium [Moles/Vol] 4.4 mmol/L 3.7 - 5.1 mmol/L [facility] Protein [Mass/Vol] 6.8 g/dL 6.3 - 8.0 g/dL [facility] Sodium [Moles/Vol] 135 mmol/L Low 136 - 144 mmol/L [facility] Urea nitrogen [Mass/Vol] 16 mg/dL 9 - 24 mg/dL [facility] Comprehensive metabolic 2000 panelon 01-03-2024 Albumin [Mass/Vol] 3.9 g/dL Normal 3.9-4.9 [facility] Comment on above: Order Comment: Speci men Type: BLOOD SPECIMENOrdering Facility: [facility] Address: [address] [place] [address] Performed By: #### 2 4323-8 ####[facility] LABCLIA [id number] [place] [address] ALP [Catalytic activity/Vol] 175 U/L High 38-113 [facility] Comment on above: Order Comment: Speci men Type: BLOOD SPECIMENOrdering Facility: [facility] Address: [address] [place] [address] Performed By: #### 2 4323-8 ####[facility] LABCLIA [id number] [place] [address] ALT [Catalytic activity/Vol] 14 U/L Normal 10-54 [facility] Comment on above: Order Comment: Speci men Type: BLOOD SPECIMENOrdering Facility: [facility] Address: [address] [place] [address] Performed By: #### 2 4323-8 ####[facility] LABCLIA [id number] [place] [address] Anion gap [Moles/Vol] 6 mmol/L Low 8-15 [facility] Comment on above: Order Comment: Speci men Type: BLOOD SPECIMENOrdering Facility: [facility] Address: [address] [place] [address] Performed By: #### 2 4323-8 ####[facility] LABCLIA [id number] [place] [address] AST [Catalytic activity/Vol] 13 U/L Low 14-40 [facility] Comment on above: Order Comment: Speci men Type: BLOOD SPECIMENOrdering Facility: [facility] Address: [address] [place] [address] Performed By: #### 2 4323-8 ####[facility] LABCLIA [id number] [place] [address] Bilirubin [Mass/Vol] 0.5 mg/dL Normal 0.2-1.3 [facility] Comment on above: Order Comment: Speci men Type: BLOOD SPECIMENOrdering Facility: [facility] Address: [address] [place] [address] Performed By: #### 2 4323-8 ####[facility] LABCLIA [id number] [place] [address] Calcium [Mass/Vol] 10.3 mg/dL High 8.5-10.2 [facility] Comment on above: Order Comment: Speci men Type: BLOOD SPECIMENOrdering Facility: [facility] Address: [address] [place] [address] Performed By: #### 2 4323-8 ####[facility] LABCLIA [id number] [place] [address] Chloride [Moles/Vol] 103 mmol/L Normal 98-107 [facility] Comment on above: Order Comment: Speci men Type: BLOOD SPECIMENOrdering Facility: [facility] Address: [address] [place] [address] Performed By: #### 2 4323-8 ####[facility] LABCLIA [id number] [place] [address] CO2 [Moles/Vol] 26 mmol/L Normal 22-30 [facility] Comment on above: Order Comment: Speci men Type: BLOOD SPECIMENOrdering Facility: [facility] Address: [address] [place] [address] Performed By: #### 2 4323-8 ####[facility] LABCLIA [id number] [place] [address] Creatinine [Mass/Vol] 0.85 mg/dL Normal 0.73-1.22 [facility] Comment on above: Order Comment: Noemí luis eduardo Type: BLOOD SPECIMENOrdering Facility: [facility] Address: [address] [id number] Performed By: #### 2 4323-8 ####[facility] LABCLIA [id number] [place] [address] Creatinine and Glomerular filtration rate.predicted panel (S/P/Bld) 92 mL/min/1.73m??? Normal >=60 [facility] Comment on above: Order Comment: Specmack luis eduardo Type: BLOOD SPECIMENOrdering Facility: [facility] Address: [address] [place] [address] Result Comment: Kathy mated Glomerular Filtration Rate [...] actual GFR. Performed By: #### 2 4323-8 ####[facility] LABCLIA [id number] [place] [address] Glucose [Mass/Vol] 169 mg/dL High 74-99 [facility] Comment on above: Order Comment: Noemí luis eduardo Type: BLOOD SPECIMENOrdering Facility: [facility] Address: [address] [id number] Result Comment: The Spanish Diabetes Association (ADA) provides guidance for cutoff [...] Standards of Medical Care in Diabetes 2016, [place] Diabetes Association. Diabetes Care. 2016.39(Suppl 1). Performed By: #### 2 4323-8 ####[facility] LABCLIA [id number] [place] [address] Potassium [Moles/Vol] 4.4 mmol/L Normal 3.7-5.1 [facility] Comment on above: Order Comment: Speci men Type: BLOOD SPECIMENOrdering Facility: [facility] Address: [address] [place] [address] Performed By: #### 2 4323-8 ####[facility] LABCLIA [id number] [place] [address] Protein [Mass/Vol] 6.8 g/dL Normal 6.3-8.0 [facility] Comment on above: Order Comment: Speci men Type: BLOOD SPECIMENOrdering Facility: [facility] Address: [address] [place] [address] Performed By: #### 2 4323-8 ####[facility] LABCLIA [id number] [place] [address] Sodium [Moles/Vol] 135 mmol/L Low 136-144 [facility] Comment on above: Order Comment: Speci men Type: BLOOD SPECIMENOrdering Facility: [facility] Address: [address] [place] [address] Performed By: #### 2 4323-8 ####[facility] LABCLIA [id number] [place] [address] Urea nitrogen [Mass/Vol] 16 mg/dL Normal 9-24 [facility] Comment on above: Order Comment: Speci men Type: BLOOD SPECIMENOrdering Facility: [facility] Address: [address] [place] [address] Performed By: #### 2 4323-8 ####[facility] LABCLIA [id number] [place] [address] CNPNon 01-02-2024 CNPN Normal [facility] [id number] 12-29-2023 [id number] HNO ID: [id number] Author: AYAH HOWE RN Service: ? Author Type: Registered Nurse Type: [id number] Filed: 12/29/2023 12:32 Note Text: After Placement [...] follow up with your ordering physician for residential, regular maintenance of your port. [facility] Imaging and Radiology Service [facility] 7:30 AM to 4:30 PM [phone] After hours/weekends: call your primary care physician or go to the ED [facility] 7:30 AM to 4:00 PM [phone]: or [phone] xam [phone] After hours/weekends: For interventional radiology: call the interventional radiologist international first officer , ask for pager [phone] For all other radiology calls: call the radiologist international first officer , ask for pager [phone] [facility] 8:00 AM to 5:00 PM [phone] After hours/weekends: call your primary care physician or go to the ED [facility] 9:00 AM to 5:00 PM [phone] After hours/weekends: call your primary care physician or go to the ED [facility] 8:00 AM to 5:00 PM [phone] After hours/weekends: call your primary care physician or go to the ED [facility] 7:00 AM to 4:30 PM [phone] After hours/weekends: call your primary care physician or go to the ED [facility] 7:00 AM to 3:30 PM [phone] After hours/weekends: call your prim (more content not included)... [facility] BRIEF OP NOTon 12-29-2023 BRIEF OP NOT HNO ID: [id number] Author: JHONNY MORGAN MD Service: Radiology Author Type: Physician Type: Brief Op Note Filed: 12/29/2023 12:08 Note Text: OPERATIVE/PROCEDURE REPORT LOG ID: [id number] SURGERY/PROCEDURE DATE: 12/29/2023 INCISION/PROCEDURE START TIME: 10:59 AM INCISION CLOSE/PROCEDURE END TIME: 11:48 AM SURGEON(S)/PROCEDURALIST( S) AND TURNER IN(S): Surgeon(s) and Role: * Jhonny Morgan MD [...] Implant Name Type Inv. Item Serial No. Early Learning Teacher Lot No. LRB No. Used Action POWER PORT 8F SINGLE LUMEN VENOUS Port [employer] [id number] Left 1 Implanted DRAINS: None COMPLICATIONS: None CLOSURE TECHNIQUE: Primary PARTICIPATION IN SURGERY/PROCEDURE: I/primary surgeon/proceduralist performed the procedure with assistance. SIGNATURE: Karyuki Morgan MD PATIENT NAME: Trinity Perry DATE: December 29, 2023 TIME: 12:06 PM Normal [facility] HISTORY PHYSICALon HISTORY PHYSICAL HNO ID: [id number] Author: JHONNY MORGAN MD Service: Radiology Author [...] DATE: December 29, 2023 TIME: 10:14 AM Normal [facility] IR CVC TUNNELED W/PORT REMOV Emily 12-29-2023 IR CVC TUNNELED W/PORT REMOVAL * * *Final Report* * * DATE OF EXAM: Dec 29 2023 12:03PM [facility] - IR CVC TUNNELED [...] was made at (more content not included)... [facility] IR FLU GD [place] CVA PLACEon IR FLU GD [place] CVA PL[address] * * *Final Report* * * DATE OF EXAM: Dec 29 2023 12:03PM [facility] 7444 - IR FLU GD [...] at the si (more content not included)... [facility] IR PORTOCATH PLACEMENTon IR PORTOCATH PLACEMENT * * *Final Report* * * DATE OF EXAM: Dec 29 2023 12:03PM [facility] 8966 - IR PORTOCATH PLACEMENT [...] at the sit (more content not included)... [facility] IR US VASCULAR ACCESS GUIDEo n 12-29-2023 IR US VASCULAR ACCESS GUIDE * * *Final Report* * * DATE OF EXAM: Dec 29 2023 12:03PM [facility] 7765 - [facility] VASCULAR ACCESS GUIDE / PROCEDURE REASON: [...] made at th (more content not included)... [facility] NURSING PROGon 12-29-2023 NURSING PROG HNO ID: [id number] Author: SUNNY PAULA, RN Service: Nursing Author Type: Registered Nurse [...] (RECOMMENDATION): None Electronically Signed By: Sunny Paula [facility] SURGICAL PATHOLOGYon 024 CASE REPORT Normal [facility] Comment on above: Order Comment: Speci men Type: TISSUE SPECIMEN Ordering Facility: [facility] Address: [address] [place] [address] Result Comment: Surg ical Pathology Report Case: [id number] Authorizing Provider: Cathy, Collected: 12/29/2023 11:43 AM MD Jhonny Ordering Location: [facility] Radiology Received: 12/29/2023 12:40 PM Procedure Pathologist: Sha Reyes MD Specimen: Hardware/Device/Foreign Body Performed By: #### S #### [facility] CLIA [id number] [address] [place] [address] [place] CLINICAL HISTORY Potentially leaking catheter in a venous ported catheter Normal [facility] Comment on above: Order Comment: Speci men Type: TISSUE SPECIMEN Ordering Facility: [facility] Address: [address] [place] [address] Performed By: #### S #### [facility] CLIA [id number] [address] [place] [address] OF [place] FINAL DIAGNOSIS [facility] Comment on above: Order Comment: Speci men Type: TISSUE SPECIMEN Ordering Facility: [facility] Address: [address] [place] [address] Result Comment: A. U nspecified site, device removal: -Mediport with attached catheter (gross examination only). KOURTNEY/RSA 01/01/2024 Performed By: #### S #### [facility] CLIA [id number] [address] [place] [address] STATES [place] FINAL PERFORMING LAB Normal [facility] Comment on above: Order Comment: Speci men Type: TISSUE SPECIMEN Ordering Facility: [facility] Address: [address] [place] [address] Result Comment: Diag nostic interpretation performed at [facility], [address] [place] [address] CLIA# [id number] Client Analyst: Gilbert Gray M.D. Performed By: #### S #### [facility] CLIA [id number] [address] [place] [address] [place] GROSS DESCRIPTION Normal [facility] Comment on above: Order Comment: Speci men Type: TISSUE SPECIMEN Ordering Facility: [facility] Address: [address] [place] [address] Result Comment: A. H ardware/Device/Foreign Body Received fresh labeled hardware/device/foreign body is a Mediport (2.8 x 2.4 x 1.6 cm) with attached catheter (23 cm in length by 0.3 cm in diameter). The following inscription is noted CT Bard 2303 . No tissue is present or submitted. This case is reviewed with Dr. Ballesteros. Gross examination only. Gross examination performed at [facility], [address] [place] [address] CLIA#[id number] [facility] January 01, 2024 11:39 AM Performed By: #### S #### [facility] CLIA [id number] [address] [place] [address] OF [place] CNPNon 12-27-2023 CNPN Telephone (AVXRPR) ----- TRINITY PERRY ([id number]) 1950 M Date Time Provider Department 12/27/23 ADINA SCHMITZ AVXRIA During your visit today, we recorded the following information about you: Adina Schmitz RN 12/27/2023 12:17 PM Signed You are scheduled for a Port Removal, On 12/29/2023. You are to arrive at 09:00 am and Report to [facility] Radiology Outpatient Desk [id number] You can expect to be here for [...] Labs: Lab-work needs to be drawn? No.. Upper Leather Cutter/Transportation: How will you be arriving for your procedure? Private car. You will need a responsible adult to accompany you to and from the procedure. 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] 04/07/2020 Deep [...] Encounter Status:Closed by LUISA CAMERON on 12/26/23 [facility] Yoko 12-25-2023 ROBERT Telephone (AVXRPR) ----- TRINITY PERRY ([id number]) 1950 M Date Time Provider Department 12/25/23 DONNELL SWENSON AVXRNILS During your visit today, we recorded [...] 03/09/2020 03/13/2020 Postprocedural intraabdominal abscess [T81.43XA*03/20/2020 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] 04/07/2020 Deep [...] Encounter Status:Closed by DONNELL SWENSON on 12/25/23 [facility] CBC W Auto Differential pane l (Bld)on 12-11-2023 Basophils (Bld) [#/Vol] [facility] Basophils/100 WBC (Bld) 0.4 % [facility] Differential cell count method Nom (Bld) Auto [facility] Eosinophils (Bld) [#/Vol] 0.04 10*3/uL [facility] Eosinophils/100 WBC (Bld) 0.8 % [facility] Erythrocyte distribution width (RBC) [Ratio] 16.3 % High 11.5 - 15.0 % [facility] Hematocrit (Bld) [Volume fraction] 34.5 % Low 39.0 - 51.0 % [facility] Hemoglobin (Bld) [Mass/Vol] 11.0 g/dL Low 13.0 - 17.0 g/dL [facility] Immature granulocytes (Bld) [#/Vol] [facility] Immature granulocytes/100 WBC (Bld) 0.4 % [facility] Interpretation and review of laboratory results Abnormal [facility] Lymphocytes (Bld) [#/Vol] 1.76 10*3/uL [facility] Lymphocytes/100 WBC (Bld) 35.3 % [facility] MCH (RBC) [Entitic mass] 30.0 pg 26.0 - 34.0 pg [facility] MCHC (RBC) [Mass/Vol] 31.9 g/dL 30.5 - 36.0 g/dL [facility] MCV (RBC) [Entitic vol] 94.0 fL 80.0 - 100.0 fL [facility] Monocytes (Bld) [#/Vol] 0.70 10*3/uL [facility] Monocytes/100 WBC (Bld) 14.1 % [facility] Neutrophils (Bld) [#/Vol] 2.44 10*3/uL [facility] Neutrophils/100 WBC (Bld) 49.0 % [facility] Nucleated RBC (Bld) [#/Vol] [facility] Nucleated RBC/100 WBC (Bld) [Ratio] 0.0 % /100 WBC [facility] Platelet mean volume (Bld) [Entitic vol] 9.5 fL 9.0 - 12.7 fL [facility] Platelets (Bld) [#/Vol] 266 10*3/uL [facility] RBC (Bld) [#/Vol] 3.67 10*6/uL Low 4.20 - 6.0 0 m/uL [facility] WBC (Bld) [#/Vol] 4.98 10*3/uL [facility] Basophils (Bld) [#/Vol] 10*3/uL Normal <0.11 [facility] Comment on above: Order Comment: Speci men Type: BLOOD SPECIMENOrdering Facility: [facility] Address: [address] [place] [address] Performed By: #### 5 7021-8 ####[facility] [id number] [place] [address] Basophils/100 WBC (Bld) 0.4 % Normal [facility] Comment on above: Order Comment: Speci men Type: BLOOD SPECIMENOrdering Facility: [facility] Address: [address] [place] [address] Performed By: #### 5 7021-8 ####[facility] [id number] [place] [address] Differential cell count method Nom (Bld) Auto Normal [facility] Comment on above: Order Comment: Speci men Type: BLOOD SPECIMENOrdering Facility: [facility] Address: [address] [place] [address] Performed By: #### 5 7021-8 ####[facility] [id number] [place] [address] Eosinophils (Bld) [#/Vol] 0.04 10*3/uL Normal <0.46 [facility] Comment on above: Order Comment: Speci men Type: BLOOD SPECIMENOrdering Facility: [facility] Address: [address] [place] [address] Performed By: #### 5 7021-8 ####[facility] [id number] [place] [address] Eosinophils/100 WBC (Bld) 0.8 % Normal [facility] Comment on above: Order Comment: Speci men Type: BLOOD SPECIMENOrdering Facility: [facility] Address: [address] [place] [address] Performed By: #### 5 7021-8 ####[facility] [id number] [place] [address] Erythrocyte distribution width (RBC) [Ratio] 16.3 % High 11.5-15.0 [facility] Comment on above: Order Comment: Speci men Type: BLOOD SPECIMENOrdering Facility: [facility] Address: [address] [place] [address] Performed By: #### 5 7021-8 ####[facility] [id number] [place] [address] Hematocrit (Bld) [Volume fraction] 34.5 % Low 39.0-51.0 [facility] Comment on above: Order Comment: Speci men Type: BLOOD SPECIMENOrdering Facility: [facility] Address: [address] [place] [address] Performed By: #### 5 7021-8 ####[facility] [id number] [place] [address] Hemoglobin (Bld) [Mass/Vol] 11.0 g/dL Low 13.0-17.0 [facility] Comment on above: Order Comment: Speci men Type: BLOOD SPECIMENOrdering Facility: [facility] Address: [address] [place] [address] Performed By: #### 5 7021-8 ####[facility] [id number] [place] [address] Immature granulocytes (Bld) [#/Vol] 10*3/uL Normal <0.10 [facility] Comment on above: Order Comment: Speci men Type: BLOOD SPECIMENOrdering Facility: [facility] Address: [address] [place] [address] Performed By: #### 5 7021-8 ####[facility] [id number] [place] [address] Immature granulocytes/100 WBC (Bld) 0.4 % Normal [facility] Comment on above: Order Comment: Speci men Type: BLOOD SPECIMENOrdering Facility: [facility] Address: [address] [place] [address] Performed By: #### 5 7021-8 ####[facility] [id number] [place] [address] Lymphocytes (Bld) [#/Vol] 1.76 10*3/uL Normal 1.00-4.00 [facility] Comment on above: Order Comment: Speci men Type: BLOOD SPECIMENOrdering Facility: [facility] Address: [address] [place] [address] Performed By: #### 5 7021-8 ####[facility] [id number] [place] [address] Lymphocytes/100 WBC (Bld) 35.3 % Normal [facility] Comment on above: Order Comment: Speci men Type: BLOOD SPECIMENOrdering Facility: [facility] Address: [address] [place] [address] Performed By: #### 5 7021-8 ####[facility] [id number] [place] [address] MCH (RBC) [Entitic mass] 30.0 pg Normal 26.0-34.0 [facility] Comment on above: Order Comment: Speci men Type: BLOOD SPECIMENOrdering Facility: [facility] Address: [address] [place] [address] Performed By: #### 5 7021-8 ####[facility] [id number] [place] [address] MCHC (RBC) [Mass/Vol] 31.9 g/dL Normal 30.5-36.0 [facility] Comment on above: Order Comment: Speci men Type: BLOOD SPECIMENOrdering Facility: [facility] Address: [address] [place] [address] Performed By: #### 5 7021-8 ####[facility] [id number] [place] [address] MCV (RBC) [Entitic vol] 94.0 fL Normal 80.0-100.0 [facility] Comment on above: Order Comment: Speci men Type: BLOOD SPECIMENOrdering Facility: [facility] Address: [address] [place] [address] Performed By: #### 5 7021-8 ####[facility]IA [id number] [place] [address] Monocytes (Bld) [#/Vol] 0.70 10*3/uL Normal <0.87 [facility] Comment on above: Order Comment: Speci men Type: BLOOD SPECIMENOrdering Facility: [facility] Address: [address] [place] [address] Performed By: #### 5 7021-8 ####[facility] [id number] [place] [address] Monocytes/100 WBC (Bld) 14.1 % Normal [facility] Comment on above: Order Comment: Speci men Type: BLOOD SPECIMENOrdering Facility: [facility] Address: [address] [place] [address] Performed By: #### 5 7021-8 ####[facility] [id number] [place] [address] Neutrophils (Bld) [#/Vol] 2.44 10*3/uL Normal 1.45-7.50 [facility] Comment on above: Order Comment: Speci men Type: BLOOD SPECIMENOrdering Facility: [facility] Address: [address] [place] [address] Performed By: #### 5 7021-8 ####[facility]CLIA [id number] [place] [address] Neutrophils/100 WBC (Bld) 49.0 % Normal [facility] Comment on above: Order Comment: Speci men Type: BLOOD SPECIMENOrdering Facility: [facility] Address: [address] [place] [address] Performed By: #### 5 7021-8 ####[facility] [id number] [place] [address] Nucleated RBC (Bld) [#/Vol] 10*3/uL Normal <0.01 [facility] Comment on above: Order Comment: Speci men Type: BLOOD SPECIMENOrdering Facility: [facility] Address: [address] [place] [address] Performed By: #### 5 7021-8 ####[facility]IA [id number] [place] [address] Nucleated RBC/100 WBC (Bld) [Ratio] 0.0 /100 WBC Normal [facility] Comment on above: Order Comment: Speci men Type: BLOOD SPECIMENOrdering Facility: [facility] Address: [address] [place] [address] Performed By: #### 5 7021-8 ####[facility]CLIA [id number] [place] [address] Platelet mean volume (Bld) [Entitic vol] 9.5 fL Normal 9.0-12.7 [facility] Comment on above: Order Comment: Speci men Type: BLOOD SPECIMENOrdering Facility: [facility] Address: [address] [place] [address] Performed By: #### 5 7021-8 ####[facility]IA [id number] [place] [address] Platelets (Bld) [#/Vol] 266 10*3/uL Normal 150-400 [facility] Comment on above: Order Comment: Speci men Type: BLOOD SPECIMENOrdering Facility: [facility] Address: [address] [place] [address] Performed By: #### 5 7021-8 ####[facility]CLIA [id number] [place] [address] RBC (Bld) [#/Vol] 3.67 10*6/uL Low 4.20-6.00 [facility] Comment on above: Order Comment: Speci men Type: BLOOD SPECIMENOrdering Facility: [facility] Address: [address] [place] [address] Performed By: #### 5 7021-8 ####[facility]CLIA [id number] [place] [address] WBC (Bld) [#/Vol] 4.98 10*3/uL Normal 3.70-11.00 [facility] Comment on above: Order Comment: Speci men Type: BLOOD SPECIMENOrdering Facility: [facility] Address: [address] [place] [address] Performed By: #### 5 7021-8 ####[facility]CLIA [id number] [place] [address] CNOVSPon 12-11-2023 CNOVSP Normal [facility] metabolic 2000 panelOrdered By: Je Elias on 12-11-2023 Albumin [Mass/Vol] 3.9 g/dL 3.9 - 4.9 g/dL [facility] ALP [Catalytic activity/Vol] 158 U/L High 38 - 113 U/L [facility] ALT [Catalytic activity/Vol] 16 U/L 10 - 54 U/L [facility] Anion gap [Moles/Vol] 8 mmol/L 8 - 15 mmol/L [facility] AST [Catalytic activity/Vol] 14 U/L 14 - 40 U/L [facility] Bilirubin [Mass/Vol] 0.5 mg/dL 0.2 - 1 .3 mg/dL [facility] Calcium [Mass/Vol] 10.4 mg/dL High 8.5 - 10. 2 mg/dL [facility] Chloride [Moles/Vol] 104 mmol/L 98 - 10 7 mmol/L [facility] CO2 [Moles/Vol] 25 mmol/L 22 - 30 mmol/L [facility] Creatinine [Mass/Vol] 0.95 mg/dL 0.73 - 1.22 mg/dL [facility] GFR/1.73 sq M.predicted among non-blacks MDRD (S/P/Bld) [Vol rate/Area] 85 mL/min/{1.73_m2} - PINF [facility] Comment on above: Estimated Glomerular Filtration [...] 127 mg/dL High 74 - 99 mg/dL [facility] Comment on above: The [place] Diabete s Association (ADA) provides guidance for [...] Standards of Medical Care in Diabetes 2016, [place] Diabetes Association. Diabetes Care. 2016.39(Suppl 1). Interpretation and review of laboratory results Abnormal [facility] Potassium [Moles/Vol] 4.5 mmol/L 3.7 - 5.1 mmol/L [facility] Protein [Mass/Vol] 6.9 g/dL 6.3 - 8.0 g/dL [facility] Sodium [Moles/Vol] 137 mmol/L 136 - 144 mmol/L [facility] Urea nitrogen [Mass/Vol] 21 mg/dL 9 - 24 mg/dL [facility] Comprehensive metabolic 2000 panelon 12-11-2023 Albumin [Mass/Vol] 3.9 g/dL Normal 3.9-4.9 [facility] Comment on above: Order Comment: Speci men Type: BLOOD SPECIMENOrdering Facility: [facility] Address: [address] [place] [address] Performed By: #### 2 4323-8 ####[facility]CLIA [id number] [place] [address] ALP [Catalytic activity/Vol] 158 U/L High 38-113 [facility] Comment on above: Order Comment: Speci men Type: BLOOD SPECIMENOrdering Facility: [facility] Address: [address] [place] [address] Performed By: #### 2 4323-8 ####[facility]CLIA [id number] [place] [address] ALT [Catalytic activity/Vol] 16 U/L Normal 10-54 [facility] Comment on above: Order Comment: Speci men Type: BLOOD SPECIMENOrdering Facility: [facility] Address: [address] [address] Performed By: #### 2 4323-8 ####[facility]CLIA [id number] [place] [address] Anion gap [Moles/Vol] 8 mmol/L Normal 8-15 [facility] Comment on above: Order Comment: Speci men Type: BLOOD SPECIMENOrdering Facility: [facility] Address: [address] [place] [address] Performed By: #### 2 4323-8 ####[facility]CLIA [id number] [place] [address] AST [Catalytic activity/Vol] 14 U/L Normal 14-40 [facility] Comment on above: Order Comment: Speci men Type: BLOOD SPECIMENOrdering Facility: [facility] Address: [address] [place] [address] Performed By: #### 2 4323-8 ####[facility]CLIA [id number] [place] [address] Bilirubin [Mass/Vol] 0.5 mg/dL Normal 0.2-1.3 [facility] Comment on above: Order Comment: Speci men Type: BLOOD SPECIMENOrdering Facility: [facility] Address: [address] [place] [address] Performed By: #### 2 4323-8 ####[facility]CLIA [id number] [place] [address] Calcium [Mass/Vol] 10.4 mg/dL High 8.5-10.2 [facility] Comment on above: Order Comment: Speci men Type: BLOOD SPECIMENOrdering Facility: [facility] Address: [address] [place], [place] [address] Performed By: #### 2 4323-8 ####[facility]CLIA [id number] [place] [address] Chloride [Moles/Vol] 104 mmol/L Normal 98-107 [facility] Comment on above: Order Comment: Speci men Type: BLOOD SPECIMENOrdering Facility: [facility] Address: [address] [place] [address] Performed By: #### 2 4323-8 ####[facility] LABCLIA [id number] [place] [address] CO2 [Moles/Vol] 25 mmol/L Normal 22-30 [facility] Comment on above: Order Comment: Speci men Type: BLOOD SPECIMENOrdering Facility: [facility] Address: [address] [place] [address] Performed By: #### 2 4323-8 ####[facility] LABCLIA [id number] [place] [address] Creatinine [Mass/Vol] 0.95 mg/dL Normal 0.73-1.22 [facility] Comment on above: Order Comment: Speci men Type: BLOOD SPECIMENOrdering Facility: [facility] Address: [address] [place] [address] Performed By: #### 2 4323-8 ####[facility] LABCLIA [id number] [place] [address] Creatinine and Glomerular filtration rate.predicted panel (S/P/Bld) 85 mL/min/1.73m??? Normal >=60 [facility] Comment on above: Order Comment: Speci men Type: BLOOD SPECIMENOrdering Facility: [facility] Address: [address] [place] [address] Result Comment: Kathy mated Glomerular Filtration Rate [...] actual GFR. Performed By: #### 2 4323-8 ####[facility] LABCLIA [id number] [place] [address] Glucose [Mass/Vol] 127 mg/dL High 74-99 [facility] Comment on above: Order Comment: Speci men Type: BLOOD SPECIMENOrdering Facility: [facility] Address: [address] [place] [address] Result Comment: The [place] Diabetes Association (ADA) provides guidance for cutoff [...] Standards of Medical Care in Diabetes 2016, [place] Diabetes Association. Diabetes Care. 2016.39(Suppl 1). Performed By: #### 2 4323-8 ####[facility] LABCLIA [id number] [place] [address] Potassium [Moles/Vol] 4.5 mmol/L Normal 3.7-5.1 [facility] Comment on above: Order Comment: Speci men Type: BLOOD SPECIMENOrdering Facility: [facility] Address: [address] [place] [address] Performed By: #### 2 4323-8 ####[facility] LABCLIA [id number] [place] [address] Protein [Mass/Vol] 6.9 g/dL Normal 6.3-8.0 [facility] Comment on above: Order Comment: Speci men Type: BLOOD SPECIMENOrdering Facility: [facility] Address: [address] [place] [address] Performed By: #### 2 4323-8 ####[facility] LABCLIA [id number] [place] [address] Sodium [Moles/Vol] 137 mmol/L Normal 136-144 [facility] Comment on above: Order Comment: Speci men Type: BLOOD SPECIMENOrdering Facility: [facility] Address: [address] [place] [address] Performed By: #### 2 4323-8 ####[facility] LABCLIA [id number] [place] [address] Urea nitrogen [Mass/Vol] 21 mg/dL Normal 9-24 [facility] Comment on above: Order Comment: Speci men Type: BLOOD SPECIMENOrdering Facility: [facility] Address: [address] [place] [id number] Performed By: #### 2 4323-8 ####[facility] LABCLIA [id number] [place] [address] CNPNon 12-05-2023 CNPN Normal [facility] CNPNon 11-28-2023 CNPN Normal [facility] CBC W Auto Differential pane l (Bld)on 11-20-2023 Basophils (Bld) [#/Vol] 0.03 10*3/uL [facility] Basophils/100 WBC (Bld) 0.7 % [facility] Differential cell count method Nom (Bld) Auto [facility] Eosinophils (Bld) [#/Vol] 0.07 10*3/uL [facility] Eosinophils/100 WBC (Bld) 1.6 % [facility] Erythrocyte distribution width (RBC) [Ratio] 16.7 % High 11.5 - 15.0 % [facility] Hematocrit (Bld) [Volume fraction] 33.9 % Low 39.0 - 51.0 % [facility] Hemoglobin (Bld) [Mass/Vol] 10.8 g/dL Low 13.0 - 17.0 g/dL [facility] Immature granulocytes (Bld) [#/Vol] NINF [facility] Immature granulocytes/100 WBC (Bld) 0.2 % [facility] Interpretation and review of laboratory results Abnormal [facility] Lymphocytes (Bld) [#/Vol] 1.87 10*3/uL [facility] Lymphocytes/100 WBC (Bld) 43.6 % [facility] MCH (RBC) [Entitic mass] 30.4 pg 26.0 - 34.0 pg [facility] MCHC (RBC) [Mass/Vol] 31.9 g/dL 30.5 - 36.0 g/dL [facility] MCV (RBC) [Entitic vol] 95.5 fL 80.0 - 100.0 fL [facility] Monocytes (Bld) [#/Vol] 0.58 10*3/uL [facility] Monocytes/100 WBC (Bld) 13.5 % [facility] Neutrophils (Bld) [#/Vol] 1.73 10*3/uL [facility] Neutrophils/100 WBC (Bld) 40.4 % [facility] Nucleated RBC (Bld) [#/Vol] NINF [facility] Nucleated RBC/100 WBC (Bld) [Ratio] 0.0 % /100 WBC [facility] Platelet mean volume (Bld) [Entitic vol] 9.4 fL 9.0 - 12.7 fL [facility] Platelets (Bld) [#/Vol] 245 10*3/uL [facility] RBC (Bld) [#/Vol] 3.55 10*6/uL Low 4.20 - 6.0 0 m/uL [facility] WBC (Bld) [#/Vol] 4.29 10*3/uL [facility] Basophils (Bld) [#/Vol] 0.03 10*3/uL Normal <0.11 [facility] Comment on above: Order Comment: Speci men Type: BLOOD SPECIMENOrdering Facility: [facility] Address: [address] [place] [address] Performed By: #### 5 7021-8 ####[facility] LABCLIA [id number] [place] [address] Basophils/100 WBC (Bld) 0.7 % Normal [facility] Comment on above: Order Comment: Speci men Type: BLOOD SPECIMENOrdering Facility: [facility] Address: [address] [place] [address] Performed By: #### 5 7021-8 ####[facility] LABCLIA [id number] [place] [address] Differential cell count method Nom (Bld) Auto Normal [facility] Comment on above: Order Comment: Speci men Type: BLOOD SPECIMENOrdering Facility: [facility] Address: [address] [place] [address] Performed By: #### 5 7021-8 ####[facility] LABCLIA [id number] [place] [address] Eosinophils (Bld) [#/Vol] 0.07 10*3/uL Normal <0.46 [facility] Comment on above: Order Comment: Speci men Type: BLOOD SPECIMENOrdering Facility: [facility] Address: [address] [place] [address] Performed By: #### 5 7021-8 ####[facility] LABCLIA [id number] [place] [address] Eosinophils/100 WBC (Bld) 1.6 % Normal [facility] Comment on above: Order Comment: Speci men Type: BLOOD SPECIMENOrdering Facility: [facility] Address: [address] [place] [address] Performed By: #### 5 7021-8 ####[facility] LABCLIA [id number] [place] [address] Erythrocyte distribution width (RBC) [Ratio] 16.7 % High 11.5-15.0 [facility] Comment on above: Order Comment: Speci men Type: BLOOD SPECIMENOrdering Facility: [facility] Address: [address] [place] [address] Performed By: #### 5 7021-8 ####[facility] LABCLIA [id number] [place] [address] Hematocrit (Bld) [Volume fraction] 33.9 % Low 39.0-51.0 [facility] Comment on above: Order Comment: Speci men Type: BLOOD SPECIMENOrdering Facility: [facility] Address: [address] [place] [address] Performed By: #### 5 7021-8 ####[facility] LABCLIA [id number] [place] [address] Hemoglobin (Bld) [Mass/Vol] 10.8 g/dL Low 13.0-17.0 [facility] Comment on above: Order Comment: Speci men Type: BLOOD SPECIMENOrdering Facility: [facility] Address: [address] [place] [address] Performed By: #### 5 7021-8 ####[facility] LABCLIA [id number] [place] [address] Immature granulocytes (Bld) [#/Vol] 10*3/uL Normal <0.10 [facility] Comment on above: Order Comment: Speci men Type: BLOOD SPECIMENOrdering Facility: [facility] Address: [address] [place] [address] Performed By: #### 5 7021-8 ####[facility] LABCLIA [id number] [place] [address] Immature granulocytes/100 WBC (Bld) 0.2 % Normal [facility] Comment on above: Order Comment: Speci men Type: BLOOD SPECIMENOrdering Facility: [facility] Address: [address] [place] [address] Performed By: #### 5 7021-8 ####[facility] LABCLIA [id number] [place] [address] Lymphocytes (Bld) [#/Vol] 1.87 10*3/uL Normal 1.00-4.00 [facility] Comment on above: Order Comment: Speci men Type: BLOOD SPECIMENOrdering Facility: [facility] Address: [address] [place] [address] Performed By: #### 5 7021-8 ####[facility] LABCLIA [id number] [place] [address] Lymphocytes/100 WBC (Bld) 43.6 % Normal [facility] Comment on above: Order Comment: Speci men Type: BLOOD SPECIMENOrdering Facility: [facility] Address: [address] [place] [address] Performed By: #### 5 7021-8 ####[facility] LABCLIA [id number] [place] [address] MCH (RBC) [Entitic mass] 30.4 pg Normal 26.0-34.0 [facility] Comment on above: Order Comment: Speci men Type: BLOOD SPECIMENOrdering Facility: [facility] Address: [address] [place] [address] Performed By: #### 5 7021-8 ####[facility] LABCLIA [id number] [place] [address] MCHC (RBC) [Mass/Vol] 31.9 g/dL Normal 30.5-36.0 [facility] Comment on above: Order Comment: Speci men Type: BLOOD SPECIMENOrdering Facility: [facility] Address: [address] [place] [address] Performed By: #### 5 7021-8 ####[facility] LABIA [id number] [place] [address] MCV (RBC) [Entitic vol] 95.5 fL Normal 80.0-100.0 [facility] Comment on above: Order Comment: Speci men Type: BLOOD SPECIMENOrdering Facility: [facility] Address: [address] [place] [address] Performed By: #### 5 7021-8 ####[facility] LABIA [id number] [place] [address] Monocytes (Bld) [#/Vol] 0.58 10*3/uL Normal <0.87 [facility] Comment on above: Order Comment: Speci men Type: BLOOD SPECIMENOrdering Facility: [facility] Address: [address] [place] [address] Performed By: #### 5 7021-8 ####[facility] LABCLIA [id number] [place] [address] Monocytes/100 WBC (Bld) 13.5 % Normal [facility] Comment on above: Order Comment: Speci men Type: BLOOD SPECIMENOrdering Facility: [facility] Address: [address] [place] [address] Performed By: #### 5 7021-8 ####[facility] LABCLIA [id number] [place] [address] Neutrophils (Bld) [#/Vol] 1.73 10*3/uL Normal 1.45-7.50 [facility] Comment on above: Order Comment: Speci men Type: BLOOD SPECIMENOrdering Facility: [facility] Address: [address] [place] [address] Performed By: #### 5 7021-8 ####[facility] LABCLIA [id number] [place] [address] Neutrophils/100 WBC (Bld) 40.4 % Normal [facility] Comment on above: Order Comment: Speci men Type: BLOOD SPECIMENOrdering Facility: [facility] Address: [address] [place] [address] Performed By: #### 5 7021-8 ####[facility] LABCLIA [id number] [place] [address] Nucleated RBC (Bld) [#/Vol] 10*3/uL Normal <0.01 [facility] Comment on above: Order Comment: Speci men Type: BLOOD SPECIMENOrdering Facility: [facility] Address: [address] [place] [address] Performed By: #### 5 7021-8 ####[facility] LABCLIA [id number] [place] [address] Nucleated RBC/100 WBC (Bld) [Ratio] 0.0 /100 WBC Normal [facility] Comment on above: Order Comment: Speci men Type: BLOOD SPECIMENOrdering Facility: [facility] Address: [address] [place] [address] Performed By: #### 5 7021-8 ####[facility] LABCLIA [id number] [place] [address] Platelet mean volume (Bld) [Entitic vol] 9.4 fL Normal 9.0-12.7 [facility] Comment on above: Order Comment: Speci men Type: BLOOD SPECIMENOrdering Facility: [facility] Address: [address] [place] [address] Performed By: #### 5 7021-8 ####[facility] LABCLIA [id number] [place] [address] Platelets (Bld) [#/Vol] 245 10*3/uL Normal 150-400 [facility] Comment on above: Order Comment: Speci men Type: BLOOD SPECIMENOrdering Facility: [facility] Address: [address] [place] [address] Performed By: #### 5 7021-8 ####[facility] LABIA [id number] [place] [address] RBC (Bld) [#/Vol] 3.55 10*6/uL Low 4.20-6.00 [facility] Comment on above: Order Comment: Speci men Type: BLOOD SPECIMENOrdering Facility: [facility] Address: [address] [place] [address] Performed By: #### 5 7021-8 ####[facility] LABIA [id number] [place] [address] WBC (Bld) [#/Vol] 4.29 10*3/uL Normal 3.70-11.00 [facility] Comment on above: Order Comment: Speci men Type: BLOOD SPECIMENOrdering Facility: [facility] Address: [address] [place] [address] Performed By: #### 5 7021-8 ####[facility] LABIA [id number] [place] [address] CNOVSPon 11-20-2023 CNOVSP Normal [facility] Cancer Ag19-9 SerPl-aCncon 0 11-20-2023 Cancer Ag 19-9 Qn 328.0 [arb'U]/mL High <36.0 C [facility] Comment on above: Order Comment: Speci men Type: BLOOD SPECIMENOrdering Facility: [facility] Address: [address] [place] [address] Result Comment: [facility] er antigen 19-9 test is used as an aid in monitoring response to treatment or recurrence in patients with established pancreatic, hepatobiliary, or gastrointestinal malignancies. Clinical correlation is required.The [place] 19-9 Antigen test was performed using the [employer] Unicel DXI paramagnetic particle chemiluminescent immunoassay method. Results obtained with different assay methods or kits cannot be used interchangeably. Performed By: #### 2 4108-3 ####[facility] LABCLIA [id number] [place] [address] [place] [facility] Comprehensive metabolic 2000 panelOrdered By: Marina Bailey on 11-20-2023 Albumin [Mass/Vol] 3.8 g/dL Low 3.9 - 4.9 g/dL [facility] ALP [Catalytic activity/Vol] 132 U/L High 38 - 113 U/L [facility] ALT [Catalytic activity/Vol] 15 U/L 10 - 54 U/L [facility] Anion gap [Moles/Vol] 8 mmol/L 8 - 15 mmol/L [facility] AST [Catalytic activity/Vol] 17 U/L 14 - 40 U/L [facility] Bilirubin [Mass/Vol] 0.5 mg/dL 0.2 - 1 .3 mg/dL [facility] Calcium [Mass/Vol] 10.4 mg/dL High 8.5 - 10. 2 mg/dL [facility] Chloride [Moles/Vol] 104 mmol/L 98 - 10 7 mmol/L [facility] CO2 [Moles/Vol] 25 mmol/L 22 - 30 mmol/L [facility] Creatinine [Mass/Vol] 0.70 mg/dL Low 0.73 - 1.22 mg/dL [facility] GFR/1.73 sq M.predicted among non-blacks MDRD (S/P/Bld) [Vol rate/Area] 98 mL/min/{1.73_m2} - PINF [facility] Comment on above: Estimated Glomerular Filtration [...] 134 mg/dL High 74 - 99 mg/dL [facility] Comment on above: The [place] Diabete s Association (ADA) provides guidance for [...] Standards of Medical Care in Diabetes 2016, [place] Diabetes Association. Diabetes Care. 2016.39(Suppl 1). Interpretation and review of laboratory results Abnormal [facility] Potassium [Moles/Vol] 4.3 mmol/L 3.7 - 5.1 mmol/L [facility] Protein [Mass/Vol] 6.8 g/dL 6.3 - 8.0 g/dL [facility] Sodium [Moles/Vol] 137 mmol/L 136 - 144 mmol/L [facility] Urea nitrogen [Mass/Vol] 13 mg/dL 9 - 24 mg/dL [facility] Comprehensive metabolic 2000 panelon 11-20-2023 Albumin [Mass/Vol] 3.8 g/dL Low 3.9-4.9 [facility] Comment on above: Order Comment: Speci men Type: BLOOD SPECIMENOrdering Facility: [facility] Address: [address] [place] [address] Performed By: #### 2 4323-8 ####[facility] LABCLIA [id number] [place] [address] ALP [Catalytic activity/Vol] 132 U/L High 38-113 [facility] Comment on above: Order Comment: Speci men Type: BLOOD SPECIMENOrdering Facility: [facility] Address: [address] [place] [address] Performed By: #### 2 4323-8 ####[facility] LABCLIA [id number] [place] [address] ALT [Catalytic activity/Vol] 15 U/L Normal 10-54 [facility] Comment on above: Order Comment: Speci men Type: BLOOD SPECIMENOrdering Facility: [facility] Address: [address] [place] [address] Performed By: #### 2 4323-8 ####[facility] LABCLIA [id number] [place] [address] Anion gap [Moles/Vol] 8 mmol/L Normal 8-15 [facility] Comment on above: Order Comment: Speci men Type: BLOOD SPECIMENOrdering Facility: [facility] Address: [address] [place] [address] Performed By: #### 2 4323-8 ####[facility] LABCLIA [id number] [place] [address] AST [Catalytic activity/Vol] 17 U/L Normal 14-40 [facility] Comment on above: Order Comment: Speci men Type: BLOOD SPECIMENOrdering Facility: [facility] Address: [address] [place] [address] Performed By: #### 2 4323-8 ####[facility] LABCLIA [id number] [place] [address] Bilirubin [Mass/Vol] 0.5 mg/dL Normal 0.2-1.3 [facility] Comment on above: Order Comment: Speci men Type: BLOOD SPECIMENOrdering Facility: [facility] Address: [address] [place] [address] Performed By: #### 2 4323-8 ####[facility] LABCLIA [id number] [place] [address] Calcium [Mass/Vol] 10.4 mg/dL High 8.5-10.2 [facility] Comment on above: Order Comment: Speci men Type: BLOOD SPECIMENOrdering Facility: [facility] Address: [address] [place] [address] Performed By: #### 2 4323-8 ####[facility] LABCLIA [id number] [place] [address] Chloride [Moles/Vol] 104 mmol/L Normal 98-107 [facility] Comment on above: Order Comment: Speci men Type: BLOOD SPECIMENOrdering Facility: [facility] Address: [address] [place] [address] Performed By: #### 2 4323-8 ####[facility] LABCLIA [id number] [place] [address] CO2 [Moles/Vol] 25 mmol/L Normal 22-30 [facility] Comment on above: Order Comment: Speci men Type: BLOOD SPECIMENOrdering Facility: [facility] Address: [address] [place] [address] Performed By: #### 2 4323-8 ####[facility] LABCLIA [id number] [place] [address] Creatinine [Mass/Vol] 0.70 mg/dL Low 0.73-1.22 [facility] Comment on above: Order Comment: Speci men Type: BLOOD SPECIMENOrdering Facility: [facility] Address: [address] [place] [address] Performed By: #### 2 4323-8 ####[facility] LABCLIA [id number] [place] [address] Creatinine and Glomerular filtration rate.predicted panel (S/P/Bld) 98 mL/min/1.73m??? Normal >=60 [facility] Comment on above: Order Comment: Speci men Type: BLOOD SPECIMENOrdering Facility: [facility] Address: [address] [place] [address] Result Comment: Kathy mated Glomerular Filtration Rate [...] actual GFR. Performed By: #### 2 4323-8 ####[facility] LABCLIA [id number] [place] [address] Glucose [Mass/Vol] 134 mg/dL High 74-99 [facility] Comment on above: Order Comment: Speci men Type: BLOOD SPECIMENOrdering Facility: [facility] Address: [address] [place] [address] Result Comment: The [place] Diabetes Association (ADA) provides guidance for cutoff [...] Standards of Medical Care in Diabetes 2016, [place] Diabetes Association. Diabetes Care. 2016.39(Suppl 1). Performed By: #### 2 4323-8 ####[facility] LABCLIA [id number] [place] [address] Potassium [Moles/Vol] 4.3 mmol/L Normal 3.7-5.1 [facility] Comment on above: Order Comment: Rajanii men Type: BLOOD SPECIMENOrdering Facility: [facility] Address: [address] [id number] Performed By: #### 2 4323-8 ####[facility] LABCLIA [id number] [place] [address] Protein [Mass/Vol] 6.8 g/dL Normal 6.3-8.0 [facility] Comment on above: Order Comment: Speci men Type: BLOOD SPECIMENOrdering Facility: [facility] Address: [address] [place], [place] [address] Performed By: #### 2 4323-8 ####[facility] LABCLIA [id number] [place] [address] Sodium [Moles/Vol] 137 mmol/L Normal 136-144 [facility] Comment on above: Order Comment: Speci men Type: BLOOD SPECIMENOrdering Facility: [facility] Address: [address] [place] [address] Performed By: #### 2 4323-8 ####[facility] LABCLIA [id number] [place] [address] Urea nitrogen [Mass/Vol] 13 mg/dL Normal 9-24 [facility] Comment on above: Order Comment: Speci men Type: BLOOD SPECIMENOrdering Facility: [facility] Address: [address] [place] [address] Performed By: #### 2 4323-8 ####[facility] LABCLIA [id number] [place] [address] CT Abdomen and Pelvis W cont rast Kodi 11-19-2023 Interpretation and review of laboratory results Abnormal [facility] Radiology Result ACTIONABLE Abnormal [facility] Comment on above: This report contains [...] be communicated with the ordering provider via [employer] staff message or phone message by Imaging [...] any questions regarding this interpretation, please call [phone]. If you are unable to reach us at the number above, please feel free to contact [facility] at [phone]. DIVISION OF RADIOLOGY * * *Final Report* * * DATE OF EXAM: Nov 17 2023 11:16AM [facility] 0530 - CT ABD/PEL W IVCON / [...] CT scan report for the abdomen findings. Nitrating Acid Mixer (topogram) images: No additional findings. DIVISION OF RADIOLOGY Provider, [facility] - 11/19/2023 * * *Final Report* * * DATE OF EXAM: Nov 17 2023 11:16AM [facility] 0530 - CT ABD/PEL W IVCON / [...] CT scan report for the abdomen findings. Nitrating Acid Mixer (topogram) images: No additional findings. IMPRESSION IMPRESSION: [...] be communicated with the ordering provider via [employer] staff message or phone message by Imaging [...] any questions regarding this interpretation, please call [phone]. If you are unable to reach us at the number above, please feel free to contact [facility] eRadiology at [phone]. [facility] CT Chest W contrast [place] IMPRESSION: [...] any questions regarding this interpretation, please call [phone]. If you are unable to reach us at the number above, please feel free to contact [facility] eRadiology at [phone]. DIVISION OF RADIOLOGY * * *Final Report* * * DATE OF EXAM: Nov 17 2023 11:16AM [facility] 0539 - CT CHEST W IVCON / [...] CT scan report for the abdomen findings. Nitrating Acid Mixer (topogram) images: No additional findings. DIVISION OF RADIOLOGY Provider, [facility] - 11/19/2023 * * *Final Report* * * DATE OF EXAM: Nov 17 2023 11:16AM [facility] 0539 - CT CHEST W IVCON / [...] CT scan report for the abdomen findings. Nitrating Acid Mixer (topogram) images: No additional findings. IMPRESSION IMPRESSION: [...] any questions regarding this interpretation, please call [phone]. If you are unable to reach us at the number above, please feel free to contact [facility] eRadiology at [phone]. [facility] CT Chest W contrast IVOrdere d By: Ccf Provider on 11-19-[address] [facility] [address] ABD/PEL W IVCONon 024 CT ABD/PEL W IVCON Invalid Interpretation Code [facility] CT CHEST W IVCONon 4 CT CHEST W IVCON Normal [facility] No Panel Informationon 11-16 Radiology Study observation (narrative) [facility] CNOVSPon 11-02-2023 CNOVSP Normal [facility] CBC W Auto Differential pane l (Bld)on 10-31-2023 Basophils (Bld) [#/Vol] 0.03 10*3/uL [facility] Basophils/100 WBC (Bld) 0.6 % [facility] Differential cell count method Nom (Bld) Auto [facility] Eosinophils (Bld) [#/Vol] 0.04 10*3/uL [facility] Eosinophils/100 WBC (Bld) 0.8 % [facility] Erythrocyte distribution width (RBC) [Ratio] 17.6 % High 11.5 - 15.0 % [facility] Hematocrit (Bld) [Volume fraction] 34.1 % Low 39.0 - 51.0 % [facility] Hemoglobin (Bld) [Mass/Vol] 10.7 g/dL Low 13.0 - 17.0 g/dL [facility] Immature granulocytes (Bld) [#/Vol] 0.03 10*3/uL [facility] Immature granulocytes/100 WBC (Bld) 0.6 % [facility] Interpretation and review of laboratory results Abnormal [facility] Lymphocytes (Bld) [#/Vol] 1.46 10*3/uL [facility] Lymphocytes/100 WBC (Bld) 30.2 % [facility] MCH (RBC) [Entitic mass] 30.2 pg 26.0 - 34.0 pg [facility] MCHC (RBC) [Mass/Vol] 31.4 g/dL 30.5 - 36.0 g/dL [facility] MCV (RBC) [Entitic vol] 96.3 fL 80.0 - 100.0 fL [facility] Monocytes (Bld) [#/Vol] 0.61 10*3/uL [facility] Monocytes/100 WBC (Bld) 12.6 % [facility] Neutrophils (Bld) [#/Vol] 2.66 10*3/uL [facility] Neutrophils/100 WBC (Bld) 55.2 % [facility] Nucleated RBC (Bld) [#/Vol] NINF [facility] Nucleated RBC/100 WBC (Bld) [Ratio] 0.0 % /100 WBC [facility] Platelet mean volume (Bld) [Entitic vol] 9.2 fL 9.0 - 12.7 fL [facility] Platelets (Bld) [#/Vol] 296 10*3/uL [facility] RBC (Bld) [#/Vol] 3.54 10*6/uL Low 4.20 - 6.0 0 m/uL [facility] WBC (Bld) [#/Vol] 4.83 10*3/uL [facility] Basophils (Bld) [#/Vol] 0.03 10*3/uL Normal <0.11 [facility] Comment on above: Order Comment: Speci men Type: BLOOD SPECIMENOrdering Facility: [facility] Address: [address] [place] [address] Performed By: #### 5 7021-8 ####[facility] LABCLIA [id number] [place] [address] Basophils/100 WBC (Bld) 0.6 % Normal [facility] Comment on above: Order Comment: Speci men Type: BLOOD SPECIMENOrdering Facility: [facility] Address: [address] [place] [address] Performed By: #### 5 7021-8 ####[facility] LABCLIA [id number] [place] [address] Differential cell count method Nom (Bld) Auto Normal [facility] Comment on above: Order Comment: Speci men Type: BLOOD SPECIMENOrdering Facility: [facility] Address: [address] [place] [address] Performed By: #### 5 7021-8 ####[facility] LABCLIA [id number] [place] [address] Eosinophils (Bld) [#/Vol] 0.04 10*3/uL Normal <0.46 [facility] Comment on above: Order Comment: Speci men Type: BLOOD SPECIMENOrdering Facility: [facility] Address: [address] [place] [address] Performed By: #### 5 7021-8 ####[facility] LABCLIA [id number] [place] [address] Eosinophils/100 WBC (Bld) 0.8 % Normal [facility] Comment on above: Order Comment: Speci men Type: BLOOD SPECIMENOrdering Facility: [facility] Address: [address] [place] [address] Performed By: #### 5 7021-8 ####[facility] LABCLIA [id number] [place] [address] Erythrocyte distribution width (RBC) [Ratio] 17.6 % High 11.5-15.0 [facility] Comment on above: Order Comment: Speci men Type: BLOOD SPECIMENOrdering Facility: [facility] Address: [address] [place] [address] Performed By: #### 5 7021-8 ####[facility] LABCLIA [id number] [place] [address] Hematocrit (Bld) [Volume fraction] 34.1 % Low 39.0-51.0 [facility] Comment on above: Order Comment: Speci men Type: BLOOD SPECIMENOrdering Facility: [facility] Address: [address] [place] [address] Performed By: #### 5 7021-8 ####[facility] LABCLIA [id number] [place] [address] Hemoglobin (Bld) [Mass/Vol] 10.7 g/dL Low 13.0-17.0 [facility] Comment on above: Order Comment: Speci men Type: BLOOD SPECIMENOrdering Facility: [facility] Address: [address] [place] [address] Performed By: #### 5 7021-8 ####[facility] LABCLIA [id number] [place] [address] Immature granulocytes (Bld) [#/Vol] 0.03 10*3/uL Normal <0.10 [facility] Comment on above: Order Comment: Speci men Type: BLOOD SPECIMENOrdering Facility: [facility] Address: [address] [place] [address] Performed By: #### 5 7021-8 ####[facility] LABCLIA [id number] [place] [address] Immature granulocytes/100 WBC (Bld) 0.6 % Normal [facility] Comment on above: Order Comment: Speci men Type: BLOOD SPECIMENOrdering Facility: [facility] Address: [address] [place] [address] Performed By: #### 5 7021-8 ####[facility] LABCLIA [id number] [place] [address] Lymphocytes (Bld) [#/Vol] 1.46 10*3/uL Normal 1.00-4.00 [facility] Comment on above: Order Comment: Speci men Type: BLOOD SPECIMENOrdering Facility: [facility] Address: [address] [place] [address] Performed By: #### 5 7021-8 ####[facility] LABCLIA [id number] [place] [address] Lymphocytes/100 WBC (Bld) 30.2 % Normal [facility] Comment on above: Order Comment: Speci men Type: BLOOD SPECIMENOrdering Facility: [facility] Address: [address] [place] [address] Performed By: #### 5 7021-8 ####[facility] LABCLIA [id number] [place] [address] MCH (RBC) [Entitic mass] 30.2 pg Normal 26.0-34.0 [facility] Comment on above: Order Comment: Speci men Type: BLOOD SPECIMENOrdering Facility: [facility] Address: [address] [place] [address] Performed By: #### 5 7021-8 ####[facility] LABCLIA [id number] [place] [address] MCHC (RBC) [Mass/Vol] 31.4 g/dL Normal 30.5-36.0 [facility] Comment on above: Order Comment: Speci men Type: BLOOD SPECIMENOrdering Facility: [facility] Address: [address] [place] [address] Performed By: #### 5 7021-8 ####[facility] LABCLIA [id number] [place] [address] MCV (RBC) [Entitic vol] 96.3 fL Normal 80.0-100.0 [facility] Comment on above: Order Comment: Speci men Type: BLOOD SPECIMENOrdering Facility: [facility] Address: [address] [place] [address] Performed By: #### 5 7021-8 ####[facility] LABCLIA [id number] [place] [address] Monocytes (Bld) [#/Vol] 0.61 10*3/uL Normal <0.87 [facility] Comment on above: Order Comment: Speci men Type: BLOOD SPECIMENOrdering Facility: [facility] Address: [address] [place] [address] Performed By: #### 5 7021-8 ####[facility] LABCLIA [id number] [place] [address] Monocytes/100 WBC (Bld) 12.6 % Normal [facility] Comment on above: Order Comment: Speci men Type: BLOOD SPECIMENOrdering Facility: [facility] Address: [address] [place] [address] Performed By: #### 5 7021-8 ####[facility] LABCLIA [id number] [place] [address] Neutrophils (Bld) [#/Vol] 2.66 10*3/uL Normal 1.45-7.50 [facility] Comment on above: Order Comment: Speci men Type: BLOOD SPECIMENOrdering Facility: [facility] Address: [address] [place] [address] Performed By: #### 5 7021-8 ####[facility] LABCLIA [id number] [place] [address] Neutrophils/100 WBC (Bld) 55.2 % Normal [facility] Comment on above: Order Comment: Speci men Type: BLOOD SPECIMENOrdering Facility: [facility] Address: [address] [place] [address] Performed By: #### 5 7021-8 ####[facility] LABCLIA [id number] [place] [address] Nucleated RBC (Bld) [#/Vol] 10*3/uL Normal <0.01 [facility] Comment on above: Order Comment: Speci men Type: BLOOD SPECIMENOrdering Facility: [facility] Address: [address] [place] [address] Performed By: #### 5 7021-8 ####[facility] LABCLIA [id number] [place] [address] Nucleated RBC/100 WBC (Bld) [Ratio] 0.0 /100 WBC Normal [facility] Comment on above: Order Comment: Speci men Type: BLOOD SPECIMENOrdering Facility: [facility] Address: [address] [place] [address] Performed By: #### 5 7021-8 ####[facility] LABCLIA [id number] [place] [address] Platelet mean volume (Bld) [Entitic vol] 9.2 fL Normal 9.0-12.7 [facility] Comment on above: Order Comment: Speci men Type: BLOOD SPECIMENOrdering Facility: [facility] Address: [address] [place] [address] Performed By: #### 5 7021-8 ####[facility] LABCLIA [id number] [place] [address] Platelets (Bld) [#/Vol] 296 10*3/uL Normal 150-400 [facility] Comment on above: Order Comment: Speci men Type: BLOOD SPECIMENOrdering Facility: [facility] Address: [address] [place] [address] Performed By: #### 5 7021-8 ####[facility] LABIA [id number] [place] [address] RBC (Bld) [#/Vol] 3.54 10*6/uL Low 4.20-6.00 [facility] Comment on above: Order Comment: Speci men Type: BLOOD SPECIMENOrdering Facility: [facility] Address: [address] [place] [address] Performed By: #### 5 7021-8 ####[facility] [id number] [place] [address] WBC (Bld) [#/Vol] 4.83 10*3/uL Normal 3.70-11.00 [facility] Comment on above: Order Comment: Speci men Type: BLOOD SPECIMENOrdering Facility: [facility] Address: [address] [place] [address] Performed By: #### 5 7021-8 ####[facility] [id number] [place] [address] CNOVSPon 10-31-2023 CNOVSP Normal [facility] Cancer Ag19-9 SerPl-aCncon 0 10-31-2023 Cancer Ag 19-9 Qn 606.0 [arb'U]/mL High <36.0 [facility] Comment on above: Order Comment: Speci men Type: BLOOD SPECIMENOrdering Facility: [facility] Address: [address] [place] [address] Result Comment: Canc er antigen 19-9 test is used as an aid in monitoring response to treatment or recurrence in patients with established pancreatic, hepatobiliary, or gastrointestinal malignancies. Clinical correlation is required.The CA 19-9 Antigen test was performed using the [employer] DXI paramagnetic particle chemiluminescent immunoassay method. Results obtained with different assay methods or kits cannot be used interchangeably. Performed By: #### 2 4108-3 ####[facility] LABCLIA [id number] [address] [facility] Comprehensive metabolic 2000 panelOrdered By: Elizabeth Yu on 10-31-2023 Albumin [Mass/Vol] 3.7 g/dL Low 3.9 - 4.9 g/dL [facility] ALP [Catalytic activity/Vol] 169 U/L High 38 - 113 U/L [facility] ALT [Catalytic activity/Vol] 31 U/L 10 - 54 U/L [facility] Anion gap [Moles/Vol] 8 mmol/L 8 - 15 mmol/L [facility] AST [Catalytic activity/Vol] 23 U/L 14 - 40 U/L [facility] Bilirubin [Mass/Vol] 0.5 mg/dL 0.2 - 1 .3 mg/dL [facility] Calcium [Mass/Vol] 10.7 mg/dL High 8.5 - 10. 2 mg/dL [facility] Chloride [Moles/Vol] 101 mmol/L 98 - 10 7 mmol/L [facility] CO2 [Moles/Vol] 27 mmol/L 22 - 30 mmol/L [facility] Creatinine [Mass/Vol] 0.73 mg/dL 0.73 - 1.22 mg/dL [facility] GFR/1.73 sq M.predicted among non-blacks MDRD (S/P/Bld) [Vol rate/Area] 97 mL/min/{1.73_m2} - PINF [facility] Comment on above: Estimated Glomerular Filtration [...] 141 mg/dL High 74 - 99 mg/dL [facility] Comment on above: The [place] Diabete s Association (ADA) provides guidance for [...] Standards of Medical Care in Diabetes 2016, [place] Diabetes Association. Diabetes Care. 2016.39(Suppl 1). Interpretation and review of laboratory results Abnormal [facility] Potassium [Moles/Vol] 4.5 mmol/L 3.7 - 5.1 mmol/L [facility] Protein [Mass/Vol] 7.5 g/dL 6.3 - 8.0 g/dL [facility] Sodium [Moles/Vol] 136 mmol/L 136 - 144 mmol/L [facility] Urea nitrogen [Mass/Vol] 13 mg/dL 9 - 24 mg/dL [facility] Comprehensive metabolic 2000 panelon 10-31-2023 Albumin [Mass/Vol] 3.7 g/dL Low 3.9-4.9 [facility] Comment on above: Order Comment: Speci men Type: BLOOD SPECIMENOrdering Facility: [facility] Address: [address] [place] [address] Performed By: #### 2 4323-8 ####[facility] LABCLIA [id number] [place] [address] ALP [Catalytic activity/Vol] 169 U/L High 38-113 [facility] Comment on above: Order Comment: Speci men Type: BLOOD SPECIMENOrdering Facility: [facility] Address: [address] [place] [address] Performed By: #### 2 4323-8 ####[facility] LABCLIA [id number] [place] [address] ALT [Catalytic activity/Vol] 31 U/L Normal 10-54 [facility] Comment on above: Order Comment: Speci men Type: BLOOD SPECIMENOrdering Facility: [facility] Address: [address] [id number] Performed By: #### 2 4323-8 ####[facility] LABCLIA [id number] [place] [address] Anion gap [Moles/Vol] 8 mmol/L Normal 8-15 [facility] Comment on above: Order Comment: Speci men Type: BLOOD SPECIMENOrdering Facility: [facility] Address: [address] [place] [address] Performed By: #### 2 4323-8 ####[facility] LABCLIA [id number] [place] [address] AST [Catalytic activity/Vol] 23 U/L Normal 14-40 [facility] Comment on above: Order Comment: Speci men Type: BLOOD SPECIMENOrdering Facility: [facility] Address: [address] [place] [address] Performed By: #### 2 4323-8 ####[facility] LABCLIA [id number] [place] [address] Bilirubin [Mass/Vol] 0.5 mg/dL Normal 0.2-1.3 [facility] Comment on above: Order Comment: Speci men Type: BLOOD SPECIMENOrdering Facility: [facility] Address: [address] [place] [address] Performed By: #### 2 4323-8 ####[facility] LABCLIA [id number] [place] [address] Calcium [Mass/Vol] 10.7 mg/dL High 8.5-10.2 [facility] Comment on above: Order Comment: Speci men Type: BLOOD SPECIMENOrdering Facility: [facility] Address: [address] [place] [address] Performed By: #### 2 4323-8 ####[facility] LABCLIA [id number] [place] [address] Chloride [Moles/Vol] 101 mmol/L Normal 98-107 [facility] Comment on above: Order Comment: Speci men Type: BLOOD SPECIMENOrdering Facility: [facility] Address: [address] [place], [place] [address] Performed By: #### 2 4323-8 ####[facility] LABCLIA [id number] [place] [address] CO2 [Moles/Vol] 27 mmol/L Normal 22-30 [facility] Comment on above: Order Comment: Speci men Type: BLOOD SPECIMENOrdering Facility: [facility] Address: [address] [place] [address] Performed By: #### 2 4323-8 ####[facility] LABCLIA [id number] [place] [address] Creatinine [Mass/Vol] 0.73 mg/dL Normal 0.73-1.22 [facility] Comment on above: Order Comment: Speci men Type: BLOOD SPECIMENOrdering Facility: [facility] Address: [address] [place] [address] Performed By: #### 2 4323-8 ####[facility] LABCLIA [id number] [place] [address] Creatinine and Glomerular filtration rate.predicted panel (S/P/Bld) 97 mL/min/1.73m??? Normal >=60 [facility] Comment on above: Order Comment: Speci men Type: BLOOD SPECIMENOrdering Facility: [facility] Address: [address] [place] [address] Result Comment: Kathy mated Glomerular Filtration Rate [...] actual GFR. Performed By: #### 2 4323-8 ####[facility] LABCLIA [id number] [place] [address] Glucose [Mass/Vol] 141 mg/dL High 74-99 [facility] Comment on above: Order Comment: Speci men Type: BLOOD SPECIMENOrdering Facility: [facility] Address: [address] [place] [address] Result Comment: The [place] Diabetes Association (ADA) provides guidance for cutoff [...] Standards of Medical Care in Diabetes 2016, [place] Diabetes Association. Diabetes Care. 2016.39(Suppl 1). Performed By: #### 2 4323-8 ####[facility] LABCLIA [id number] [place] [address] Potassium [Moles/Vol] 4.5 mmol/L Normal 3.7-5.1 [facility] Comment on above: Order Comment: Speci men Type: BLOOD SPECIMENOrdering Facility: [facility] Address: [address] [place] [address] Performed By: #### 2 4323-8 ####[facility] LABCLIA [id number] [place] [address] Protein [Mass/Vol] 7.5 g/dL Normal 6.3-8.0 [facility] Comment on above: Order Comment: Speci men Type: BLOOD SPECIMENOrdering Facility: [facility] Address: [address] [place] [address] Performed By: #### 2 4323-8 ####[facility] LABCLIA [id number] [place] [address] Sodium [Moles/Vol] 136 mmol/L Normal 136-144 [facility] Comment on above: Order Comment: Speci men Type: BLOOD SPECIMENOrdering Facility: [facility] Address: [address] [place] [address] Performed By: #### 2 4323-8 ####[facility] LABCLIA [id number] [place] [address] Urea nitrogen [Mass/Vol] 13 mg/dL Normal 9-24 [facility] Comment on above: Order Comment: Speci men Type: BLOOD SPECIMENOrdering Facility: [facility] Address: [address] [place] [address] Performed By: #### 2 4323-8 ####[facility] LABCLIA [id number] [place] [address] CNPNon 10-17-2023 CNPN Normal [facility] CNPNon 10-13-2023 CNPN Normal [facility] CBC W Auto Differential pane l (Bld)on 10-11-2023 Basophils (Bld) [#/Vol] 0.04 10*3/uL [facility] Basophils/100 WBC (Bld) 0.4 % [facility] Differential cell count method Nom (Bld) Auto [facility] Eosinophils (Bld) [#/Vol] [facility] Eosinophils/100 WBC (Bld) 0.2 % [facility] Erythrocyte distribution width (RBC) [Ratio] 15.2 % High 11.5 - 15.0 % [facility] Hematocrit (Bld) [Volume fraction] 29.5 % Low 39.0 - 51.0 % [facility] Hemoglobin (Bld) [Mass/Vol] 9.6 g/dL Low 13.0 - 17.0 g/dL [facility] Immature granulocytes (Bld) [#/Vol] 0.12 10*3/uL High NINF [facility] Immature granulocytes/100 WBC (Bld) 1.2 % [facility] Interpretation and review of laboratory results Abnormal [facility] Lymphocytes (Bld) [#/Vol] 1.53 10*3/uL [facility] Lymphocytes/100 WBC (Bld) 15.3 % [facility] MCH (RBC) [Entitic mass] 30.2 pg 26.0 - 34.0 pg [facility] MCHC (RBC) [Mass/Vol] 32.5 g/dL 30.5 - 36.0 g/dL [facility] MCV (RBC) [Entitic vol] 92.8 fL 80.0 - 100.0 fL [facility] Monocytes (Bld) [#/Vol] 0.77 10*3/uL NINF [facility] Monocytes/100 WBC (Bld) 7.7 % [facility] Neutrophils (Bld) [#/Vol] 7.54 10*3/uL High [facility] Neutrophils/100 WBC (Bld) 75.2 % [facility] Nucleated RBC (Bld) [#/Vol] NINF [facility] Nucleated RBC/100 WBC (Bld) [Ratio] 0.0 % /100 WBC [facility] Platelet mean volume (Bld) [Entitic vol] 10.0 fL 9.0 - 12.7 fL [facility] Platelets (Bld) [#/Vol] 196 10*3/uL [facility] RBC (Bld) [#/Vol] 3.18 10*6/uL Low 4.20 - 6.0 0 m/uL [facility] WBC (Bld) [#/Vol] 10.02 10*3/uL [facility] Basophils (Bld) [#/Vol] 0.04 10*3/uL Normal <0.11 [facility] Comment on above: Order Comment: Speci men Type: BLOOD SPECIMENOrdering Facility: [facility] Address: [address] [place] [address] Performed By: #### 5 7021-8 ####[facility] LABCLIA [id number] [place] [address] Basophils/100 WBC (Bld) 0.4 % Normal [facility] Comment on above: Order Comment: Speci men Type: BLOOD SPECIMENOrdering Facility: [facility] Address: [address] [place] [address] Performed By: #### 5 7021-8 ####[facility] LABCLIA [id number] [place] [address] Differential cell count method Nom (Bld) Auto Normal [facility] Comment on above: Order Comment: Speci men Type: BLOOD SPECIMENOrdering Facility: [facility] Address: [address] [place] [address] Performed By: #### 5 7021-8 ####[facility] LABCLIA [id number] [place] [address] Eosinophils (Bld) [#/Vol] 10*3/uL Normal <0.46 [facility] Comment on above: Order Comment: Speci men Type: BLOOD SPECIMENOrdering Facility: [facility] Address: [address] [place] [address] Performed By: #### 5 7021-8 ####[facility] LABCLIA [id number] [place] [address] Eosinophils/100 WBC (Bld) 0.2 % Normal [facility] Comment on above: Order Comment: Speci men Type: BLOOD SPECIMENOrdering Facility: [facility] Address: [address] [place] [address] Performed By: #### 5 7021-8 ####[facility] LABCLIA [id number] [place] [address] Erythrocyte distribution width (RBC) [Ratio] 15.2 % High 11.5-15.0 [facility] Comment on above: Order Comment: Speci men Type: BLOOD SPECIMENOrdering Facility: [facility] Address: [address] [place] [address] Performed By: #### 5 7021-8 ####[facility] LABCLIA [id number] [place] [address] Hematocrit (Bld) [Volume fraction] 29.5 % Low 39.0-51.0 [facility] Comment on above: Order Comment: Speci men Type: BLOOD SPECIMENOrdering Facility: [facility] Address: [address] [place] [address] Performed By: #### 5 7021-8 ####[facility] LABCLIA [id number] [place] [address] Hemoglobin (Bld) [Mass/Vol] 9.6 g/dL Low 13.0-17.0 [facility] Comment on above: Order Comment: Speci men Type: BLOOD SPECIMENOrdering Facility: [facility] Address: [address] [place] [address] Performed By: #### 5 7021-8 ####[facility] LABCLIA [id number] [place] [address] Immature granulocytes (Bld) [#/Vol] 0.12 10*3/uL High <0.10 [facility] Comment on above: Order Comment: Speci men Type: BLOOD SPECIMENOrdering Facility: [facility] Address: [address] [place] [address] Performed By: #### 5 7021-8 ####[facility] LABCLIA [id number] [place] [address] Immature granulocytes/100 WBC (Bld) 1.2 % Normal [facility] Comment on above: Order Comment: Speci men Type: BLOOD SPECIMENOrdering Facility: [facility] Address: [address] [place] [address] Performed By: #### 5 7021-8 ####[facility] LABCLIA [id number] [place] [address] Lymphocytes (Bld) [#/Vol] 1.53 10*3/uL Normal 1.00-4.00 [place] [facility] Comment on above: Order Comment: Speci men Type: BLOOD SPECIMENOrdering Facility: [facility] Address: [address] [place] [address] Performed By: #### 5 7021-8 ####[facility] LABCLIA [id number] [place] [address] Lymphocytes/100 WBC (Bld) 15.3 % Normal [facility] Comment on above: Order Comment: Speci men Type: BLOOD SPECIMENOrdering Facility: [facility] Address: [address] [place] [address] Performed By: #### 5 7021-8 ####[facility] LABCLIA [id number] [place] [address] MCH (RBC) [Entitic mass] 30.2 pg Normal 26.0-34.0 [facility] Comment on above: Order Comment: Speci men Type: BLOOD SPECIMENOrdering Facility: [facility] Address: [address] [place] [address] Performed By: #### 5 7021-8 ####[facility] LABCLIA [id number] [place] [address] MCHC (RBC) [Mass/Vol] 32.5 g/dL Normal 30.5-36.0 [facility] Comment on above: Order Comment: Speci men Type: BLOOD SPECIMENOrdering Facility: [facility] Address: [address] [place] [address] Performed By: #### 5 7021-8 ####[facility] LABCLIA [id number] [place] [address] MCV (RBC) [Entitic vol] 92.8 fL Normal 80.0-100.0 [facility] Comment on above: Order Comment: Speci men Type: BLOOD SPECIMENOrdering Facility: [facility] Address: [address] [place] [address] Performed By: #### 5 7021-8 ####[facility] LABCLIA [id number] [place] [address] Monocytes (Bld) [#/Vol] 0.77 10*3/uL Normal <0.87 [facility] Comment on above: Order Comment: Speci men Type: BLOOD SPECIMENOrdering Facility: [facility] Address: [address] [place] [address] Performed By: #### 5 7021-8 ####[facility] LABCLIA [id number] [place] [address] Monocytes/100 WBC (Bld) 7.7 % Normal [facility] Comment on above: Order Comment: Speci men Type: BLOOD SPECIMENOrdering Facility: [facility] Address: [address] [place] [address] Performed By: #### 5 7021-8 ####[facility] LABCLIA [id number] [place] [address] Neutrophils (Bld) [#/Vol] 7.54 10*3/uL High 1.45-7.50 [facility] Comment on above: Order Comment: Speci men Type: BLOOD SPECIMENOrdering Facility: [facility] Address: [address] [place] [address] Performed By: #### 5 7021-8 ####[facility] LABCLIA [id number] [place] [address] Neutrophils/100 WBC (Bld) 75.2 % Normal [facility] Comment on above: Order Comment: Speci men Type: BLOOD SPECIMENOrdering Facility: [facility] Address: [address] [place] [address] Performed By: #### 5 7021-8 ####[facility] LABCLIA [id number] [place] [address] Nucleated RBC (Bld) [#/Vol] 10*3/uL Normal <0.01 [facility] Comment on above: Order Comment: Speci men Type: BLOOD SPECIMENOrdering Facility: [facility] Address: [address] [place] [address] Performed By: #### 5 7021-8 ####[facility] LABCLIA [id number] [place] [address] Nucleated RBC/100 WBC (Bld) [Ratio] 0.0 /100 WBC Normal [facility] Comment on above: Order Comment: Speci men Type: BLOOD SPECIMENOrdering Facility: [facility] Address: [address] [place] [address] Performed By: #### 5 7021-8 ####[facility] LABCLIA [id number] [place] [address] Platelet mean volume (Bld) [Entitic vol] 10.0 fL Normal 9.0-12.7 [facility] Comment on above: Order Comment: Speci men Type: BLOOD SPECIMENOrdering Facility: [facility] Address: [address] [place] [address] Performed By: #### 5 7021-8 ####[facility] LABCLIA [id number] [place] [address] Platelets (Bld) [#/Vol] 196 10*3/uL Normal 150-400 [facility] Comment on above: Order Comment: Speci men Type: BLOOD SPECIMENOrdering Facility: [facility] Address: [address] [place] [address] Performed By: #### 5 7021-8 ####[facility] LABCLIA [id number] [place] [address] RBC (Bld) [#/Vol] 3.18 10*6/uL Low 4.20-6.00 [facility] Comment on above: Order Comment: Speci men Type: BLOOD SPECIMENOrdering Facility: [facility] Address: [address] [place] [address] Performed By: #### 5 7021-8 ####[facility] LABCLIA [id number] [place] [address] WBC (Bld) [#/Vol] 10.02 10*3/uL Normal 3.70-11.00 [facility] Comment on above: Order Comment: Speci men Type: BLOOD SPECIMENOrdering Facility: [facility] Address: [address] [place] [address] Performed By: #### 5 7021-8 ####[facility] LABCLIA [id number] [place] [address] CNNURSEon 10-11-2023 CNNURSE Normal [facility] CNOVSPon 10-11-2023 CNOVSP Normal [facility] Comprehensive metabolic 2000 panelon 10-11-2023 Albumin [Mass/Vol] 2.9 g/dL Low 3.9 - 4.9 g/dL [facility] ALP [Catalytic activity/Vol] 111 U/L 38 - 113 U/L [facility] Comment on above: Results may be false ly decreased due to interference from hemolysis. Suggest reorder as clinically indicated. ALT [Catalytic activity/Vol] 18 U/L 10 - 54 U/L [facility] Comment on above: Results may be false ly increased due to interference from hemolysis. Suggest reorder as clinically indicated. Anion gap [Moles/Vol] 9 mmol/L 9 - 18 mmol/L [facility] AST [Catalytic activity/Vol] 52 U/L High 14 - 40 U/L [facility] Comment on above: Results may be false ly increased due to interference from hemolysis. Suggest reorder as clinically indicated. Bilirubin [Mass/Vol] 0.5 mg/dL 0.2 - 1 .3 mg/dL [facility] Calcium [Mass/Vol] 9.7 mg/dL 8.5 - 10. 2 mg/dL [facility] Chloride [Moles/Vol] 96 mmol/L Low 97 - 10 5 mmol/L [facility] CO2 [Moles/Vol] 23 mmol/L 22 - 30 mmol/L [facility] Creatinine [Mass/Vol] 0.71 mg/dL Low 0.73 - 1.22 mg/dL [facility] GFR/1.73 sq M.predicted among non-blacks MDRD (S/P/Bld) [Vol rate/Area] 97 mL/min/{1.73_m2} - PINF [facility] Comment on above: Estimated Glomerular Filtration [...] 158 mg/dL High 74 - 99 mg/dL [facility] Comment on above: The [place] Diabete s Association (ADA) provides guidance for [...] Standards of Medical Care in Diabetes 2016, [place] Diabetes Association. Diabetes Care. 2016.39(Suppl 1). Interpretation and review of laboratory results Abnormal [facility] Potassium [Moles/Vol] [facility] Comment on above: Unable to assay due to interference from hemolysis. Suggest reorder as clinically indicated. Protein [Mass/Vol] 7.0 g/dL 6.3 - 8.0 g/dL [facility] Sodium [Moles/Vol] 128 mmol/L Low 136 - 144 mmol/L [facility] Urea nitrogen [Mass/Vol] 14 mg/dL 9 - 24 mg/dL [facility] Albumin [Mass/Vol] 2.9 g/dL Low 3.9-4.9 [facility] Comment on above: Order Comment: Speci men Type: BLOOD SPECIMENOrdering Facility: [facility] Address: [address] [place] [address] Performed By: #### 2 4323-8 ####[facility] LABCLIA [id number] [place] [address] [place] ALP [Catalytic activity/Vol] 111 U/L Normal 38-113 [facility] Comment on above: Order Comment: Speci men Type: BLOOD SPECIMENOrdering Facility: [facility] Address: [address] [place] [address] Result Comment: Resu lts may be falsely decreased due to interference from hemolysis. Suggest reorder as clinically indicated. Performed By: #### 2 4323-8 ####[facility] LABCLIA [id number] [place] [address] [place] ALT [Catalytic activity/Vol] 18 U/L Normal 10-54 [facility] Comment on above: Order Comment: Speci men Type: BLOOD SPECIMENOrdering Facility: [facility] Address: [address] [place] [address] Result Comment: Resu lts may be falsely increased due to interference from hemolysis. Suggest reorder as clinically indicated. Performed By: #### 2 4323-8 ####[facility] LABCLIA [id number] [place] [address] [place] Anion gap [Moles/Vol] 9 mmol/L Normal 9-18 [facility] Comment on above: Order Comment: Speci men Type: BLOOD SPECIMENOrdering Facility: [facility] Address: [address] [place] [address] Performed By: #### 2 4323-8 ####[facility] LABCLIA [id number] [place] [address] [place] AST [Catalytic activity/Vol] 52 U/L High 14-40 [facility] Comment on above: Order Comment: Speci men Type: BLOOD SPECIMENOrdering Facility: [facility] Address: [address] [place] [address] Result Comment: Resu lts may be falsely increased due to interference from hemolysis. Suggest reorder as clinically indicated. Performed By: #### 2 4323-8 ####[facility] LABCLIA [id number] [place] [address] [place] Bilirubin [Mass/Vol] 0.5 mg/dL Normal 0.2-1.3 [facility] Comment on above: Order Comment: Speci men Type: BLOOD SPECIMENOrdering Facility: [facility] Address: [address] [place] [address] Performed By: #### 2 4323-8 ####[facility] LABCLIA [id number] [place] [address] [place] Calcium [Mass/Vol] 9.7 mg/dL Normal 8.5-10.2 [facility] Comment on above: Order Comment: Speci men Type: BLOOD SPECIMENOrdering Facility: [facility] Address: [address] [place] [address] Performed By: #### 2 4323-8 ####[facility] LABCLIA [id number] [place] [address] [place] Chloride [Moles/Vol] 96 mmol/L Low 97-105 [facility] Comment on above: Order Comment: Speci men Type: BLOOD SPECIMENOrdering Facility: [facility] Address: [address] [place] [address] Performed By: #### 2 4323-8 ####[facility] LABCLIA [id number] [place] [address] [place] CO2 [Moles/Vol] 23 mmol/L Normal 22-30 [facility] Comment on above: Order Comment: Speci men Type: BLOOD SPECIMENOrdering Facility: [facility] Address: [address] [place] [address] Performed By: #### 2 4323-8 ####[facility] LABCLIA [id number] [place] [address] [place] Creatinine [Mass/Vol] 0.71 mg/dL Low 0.73-1.22 [facility] Comment on above: Order Comment: Speci men Type: BLOOD SPECIMENOrdering Facility: [facility] Address: [address] [place] [address] Performed By: #### 2 4323-8 ####[facility] LABCLIA [id number] [place] [address] [place] Creatinine and Glomerular filtration rate.predicted panel (S/P/Bld) 97 mL/min/1.73m??? Normal >=60 [facility] Comment on above: Order Comment: Speci men Type: BLOOD SPECIMENOrdering Facility: [facility] Address: [address] [place] [address] Result Comment: Kathy mated Glomerular Filtration Rate [...] actual GFR. Performed By: #### 2 4323-8 ####[facility] LABCLIA [id number] [place] [address] [place] Glucose [Mass/Vol] 158 mg/dL High 74-99 [facility] Comment on above: Order Comment: Speci men Type: BLOOD SPECIMENOrdering Facility: [facility] Address: [address] [place] [address] Result Comment: The [place] Diabetes Association (ADA) provides guidance for cutoff [...] Standards of Medical Care in Diabetes 2016, [place] Diabetes Association. Diabetes Care. 2016.39(Suppl 1). Performed By: #### 2 4323-8 ####[facility] LABCLIA [id number] [place] [address] [place] Potassium [Moles/Vol] Normal [facility] Comment on above: Order Comment: Speci men Type: BLOOD SPECIMENOrdering Facility: [facility] Address: [address] [place] [address] Result Comment: Unab le to assay due to interference from hemolysis. Suggest reorder as clinically indicated. Performed By: #### 2 4323-8 ####[facility] LABCLIA [id number] [place] [address] [place] Protein [Mass/Vol] 7.0 g/dL Normal 6.3-8.0 [facility] Comment on above: Order Comment: Speci men Type: BLOOD SPECIMENOrdering Facility: [facility] Address: [address] [place] [address] Performed By: #### 2 4323-8 ####[facility] LABCLIA [id number] [place] [address] [place] Sodium [Moles/Vol] 128 mmol/L Low 136-144 [facility] Comment on above: Order Comment: Speci men Type: BLOOD SPECIMENOrdering Facility: [facility] Address: [address] [place] [address] Performed By: #### 2 4323-8 ####[facility] LABCLIA [id number] [place] [address] [place] Urea nitrogen [Mass/Vol] 14 mg/dL Normal 9-24 [facility] Comment on above: Order Comment: Speci men Type: BLOOD SPECIMENOrdering Facility: [facility] Address: [address] [place] [address] Performed By: #### 2 4323-8 ####[facility] LABCLIA [id number] [place] [address] [place] UA DIP, URINE (POC)on 2023 BILIRUBIN UA (POCT) Negative Negative [facility] CLARITY UA (POCT) Slightly Cloudy Cl [facility] COLOR UA (POCT) Yellow [facility] GLUCOSE UA (POCT) Negative Negative mg/dL [facility] Hemoglobin Ql (U) Negative Negative [facility] Interpretation and review of laboratory results Abnormal [facility] KETONE UA (POCT) Negative Negative mg/dL [facility] LEUKOCYTES UA (POCT) Trace Abnormal Negative [facility] NITRITE UA (POCT) Negative Negative [facility] PH UA (POCT) 6.5 4.5 - 8.0 [facility] Protein Ql (U) Negative Negative mg/dL [facility] SPECIFIC GRAVITY UA (POCT) 1.015 1.005 - 1.030 [facility] UROBILINOGEN UA (POCT) 0.2 Normal E.U./dL [facility] Location:[facility], [address] [place] [address] , [place], [place], [address] [facility] POINT OF CARE [facility] CNPNon 10-05-2023 CNPN Normal [facility] CNPNon 10-04-2023 CNPN Normal [facility] CBC W Auto Differential pane l (Bld)on 10-03-2023 Basophils (Bld) [#/Vol] 0.04 10*3/uL NINF [facility] Basophils/100 WBC (Bld) 0.4 % [facility] Differential cell count method Nom (Bld) Auto [facility] Eosinophils (Bld) [#/Vol] [facility] Eosinophils/100 WBC (Bld) 0.1 % [facility] Erythrocyte distribution width (RBC) [Ratio] 14.2 % 11.5 - 15.0 % [facility] Hematocrit (Bld) [Volume fraction] 29.5 % Low 39.0 - 51.0 % [facility] Hemoglobin (Bld) [Mass/Vol] 9.6 g/dL Low 13.0 - 17.0 g/dL [facility] Immature granulocytes (Bld) [#/Vol] 0.18 10*3/uL High [facility] Immature granulocytes/100 WBC (Bld) 1.8 % [facility] Interpretation and review of laboratory results Abnormal [facility] Lymphocytes (Bld) [#/Vol] 1.28 10*3/uL [facility] Lymphocytes/100 WBC (Bld) 13.0 % [facility] MCH (RBC) [Entitic mass] 31.4 pg 26.0 - 34.0 pg [facility] MCHC (RBC) [Mass/Vol] 32.5 g/dL 30.5 - 36.0 g/dL [facility] MCV (RBC) [Entitic vol] 96.4 fL 80.0 - 100.0 fL [facility] Monocytes (Bld) [#/Vol] 1.25 10*3/uL High NINF [facility] Monocytes/100 WBC (Bld) 12.7 % [facility] Neutrophils (Bld) [#/Vol] 7.08 10*3/uL [facility] Neutrophils/100 WBC (Bld) 72.0 % [facility] Nucleated RBC (Bld) [#/Vol] NINF [facility] Nucleated RBC/100 WBC (Bld) [Ratio] 0.0 % /100 WBC [facility] Platelet mean volume (Bld) [Entitic vol] 9.0 fL 9.0 - 12.7 fL [facility] Platelets (Bld) [#/Vol] 407 10*3/uL High [facility] RBC (Bld) [#/Vol] 3.06 10*6/uL Low 4.20 - 6.0 0 m/uL [facility] WBC (Bld) [#/Vol] 9.84 10*3/uL [facility] Basophils (Bld) [#/Vol] 0.04 10*3/uL Normal <0.11 [facility] Comment on above: Order Comment: Speci men Type: BLOOD SPECIMENOrdering Facility: [facility] Address: [address] [place] [address] Performed By: #### 5 7021-8 ####[facility] LABCLIA [id number] [place] [address] Basophils/100 WBC (Bld) 0.4 % Normal [facility] Comment on above: Order Comment: Speci men Type: BLOOD SPECIMENOrdering Facility: [facility] Address: [address] [place] [address] Performed By: #### 5 7021-8 ####[facility] LABCLIA [id number] [place] [address] Differential cell count method Nom (Bld) Auto Normal [facility] Comment on above: Order Comment: Speci men Type: BLOOD SPECIMENOrdering Facility: [facility] Address: [address] [place] [address] Performed By: #### 5 7021-8 ####[facility] LABCLIA [id number] [place] [address] Eosinophils (Bld) [#/Vol] 10*3/uL Normal <0.46 [facility] Comment on above: Order Comment: Speci men Type: BLOOD SPECIMENOrdering Facility: [facility] Address: [address] [place] [address] Performed By: #### 5 7021-8 ####[facility] LABCLIA [id number] [place] [address] Eosinophils/100 WBC (Bld) 0.1 % Normal [facility] Comment on above: Order Comment: Speci men Type: BLOOD SPECIMENOrdering Facility: [facility] Address: [address] [place] [address] Performed By: #### 5 7021-8 ####[facility] LABCLIA [id number] [place] [address] Erythrocyte distribution width (RBC) [Ratio] 14.2 % Normal 11.5-15.0 [facility] Comment on above: Order Comment: Speci men Type: BLOOD SPECIMENOrdering Facility: [facility] Address: [address] [place] [address] Performed By: #### 5 7021-8 ####[facility] LABCLIA [id number] [place] [address] Hematocrit (Bld) [Volume fraction] 29.5 % Low 39.0-51.0 [facility] Comment on above: Order Comment: Speci men Type: BLOOD SPECIMENOrdering Facility: [facility] Address: [address] [place] [address] Performed By: #### 5 7021-8 ####[facility] LABCLIA [id number] [place] [address] Hemoglobin (Bld) [Mass/Vol] 9.6 g/dL Low 13.0-17.0 [facility] Comment on above: Order Comment: Speci men Type: BLOOD SPECIMENOrdering Facility: [facility] Address: [address] [place] [address] Performed By: #### 5 7021-8 ####[facility] LABCLIA [id number] [place] [address] Immature granulocytes (Bld) [#/Vol] 0.18 10*3/uL High <0.10 [facility] Comment on above: Order Comment: Speci men Type: BLOOD SPECIMENOrdering Facility: [facility] Address: [address] [place] [address] Performed By: #### 5 7021-8 ####[facility] LABCLIA [id number] [place] [address] Immature granulocytes/100 WBC (Bld) 1.8 % Normal [facility] Comment on above: Order Comment: Speci men Type: BLOOD SPECIMENOrdering Facility: [facility] Address: [address] [place] [address] Performed By: #### 5 7021-8 ####[facility] LABCLIA [id number] [place] [address] Lymphocytes (Bld) [#/Vol] 1.28 10*3/uL Normal 1.00-4.00 [facility] Comment on above: Order Comment: Speci men Type: BLOOD SPECIMENOrdering Facility: [facility] Address: [address] [place] [address] Performed By: #### 5 7021-8 ####[facility] LABCLIA [id number] [place] [address] Lymphocytes/100 WBC (Bld) 13.0 % Normal [facility] Comment on above: Order Comment: Speci men Type: BLOOD SPECIMENOrdering Facility: [facility] Address: [address] [place] [address] Performed By: #### 5 7021-8 ####[facility] LABCLIA [id number] [place] [address] MCH (RBC) [Entitic mass] 31.4 pg Normal 26.0-34.0 [facility] Comment on above: Order Comment: Speci men Type: BLOOD SPECIMENOrdering Facility: [facility] Address: [address] [place] [address] Performed By: #### 5 7021-8 ####[facility] LABCLIA [id number] [place] [address] MCHC (RBC) [Mass/Vol] 32.5 g/dL Normal 30.5-36.0 [facility] Comment on above: Order Comment: Speci men Type: BLOOD SPECIMENOrdering Facility: [facility] Address: [address] [place] [address] Performed By: #### 5 7021-8 ####[facility] LABCLIA [id number] [place] [address] MCV (RBC) [Entitic vol] 96.4 fL Normal 80.0-100.0 [facility] Comment on above: Order Comment: Speci men Type: BLOOD SPECIMENOrdering Facility: [facility] Address: [address] [place] [address] Performed By: #### 5 7021-8 ####[facility] LABCLIA [id number] [place] [address] Monocytes (Bld) [#/Vol] 1.25 10*3/uL High <0.87 [facility] Comment on above: Order Comment: Speci men Type: BLOOD SPECIMENOrdering Facility: [facility] Address: [address] [place] [address] Performed By: #### 5 7021-8 ####[facility] LABCLIA [id number] [place] [address] Monocytes/100 WBC (Bld) 12.7 % Normal [facility] Comment on above: Order Comment: Speci men Type: BLOOD SPECIMENOrdering Facility: [facility] Address: [address] [place] [address] Performed By: #### 5 7021-8 ####[facility] LABCLIA [id number] [place] [address] Neutrophils (Bld) [#/Vol] 7.08 10*3/uL Normal 1.45-7.50 [facility] Comment on above: Order Comment: Speci men Type: BLOOD SPECIMENOrdering Facility: [facility] Address: [address] [place] [address] Performed By: #### 5 7021-8 ####[facility] LABCLIA [id number] [place] [address] Neutrophils/100 WBC (Bld) 72.0 % Normal [facility] Comment on above: Order Comment: Speci men Type: BLOOD SPECIMENOrdering Facility: [facility] Address: [address] [place] [address] Performed By: #### 5 7021-8 ####[facility] LABCLIA [id number] [place] [address] Nucleated RBC (Bld) [#/Vol] 10*3/uL Normal <0.01 [facility] Comment on above: Order Comment: Speci men Type: BLOOD SPECIMENOrdering Facility: [facility] Address: [address] [place] [address] Performed By: #### 5 7021-8 ####[facility] LABCLIA [id number] [place] [address] Nucleated RBC/100 WBC (Bld) [Ratio] 0.0 /100 WBC Normal [facility] Comment on above: Order Comment: Speci men Type: BLOOD SPECIMENOrdering Facility: [facility] Address: [address] [place] [address] Performed By: #### 5 7021-8 ####[facility] LABCLIA [id number] [place] [address] Platelet mean volume (Bld) [Entitic vol] 9.0 fL Normal 9.0-12.7 [facility] Comment on above: Order Comment: Speci men Type: BLOOD SPECIMENOrdering Facility: [facility] Address: [address] [place] [address] Performed By: #### 5 7021-8 ####[facility] LABCLIA [id number] [place] [address] Platelets (Bld) [#/Vol] 407 10*3/uL High 150-400 [facility] Comment on above: Order Comment: Speci men Type: BLOOD SPECIMENOrdering Facility: [facility] Address: [address] [place] [address] Performed By: #### 5 7021-8 ####[facility] LABIA [id number] [place] [address] RBC (Bld) [#/Vol] 3.06 10*6/uL Low 4.20-6.00 [facility] Comment on above: Order Comment: Speci men Type: BLOOD SPECIMENOrdering Facility: [facility] Address: [address] [place] [address] Performed By: #### 5 7021-8 ####[facility] LABIA [id number] [place] [address] WBC (Bld) [#/Vol] 9.84 10*3/uL Normal 3.70-11.00 [facility] Comment on above: Order Comment: Speci men Type: BLOOD SPECIMENOrdering Facility: [facility] Address: [address] [place] [address] Performed By: #### 5 7021-8 ####[facility] LABIA [id number] [place] [address] CNOVSPon 10-03-2023 CNOVSP Normal [facility] CNPNon 10-03-2023 CNPN Normal [facility] Cancer Ag19-9 SerPl-aCncon 0 10-03-2023 Cancer Ag 19-9 Qn 234.0 [arb'U]/mL High <36.0 [facility] Comment on above: Order Comment: Speci men Type: BLOOD SPECIMENOrdering Facility: [facility] Address: [address] [place] [address] Result Comment: Canc er antigen 19-9 test is used as an aid in monitoring response to treatment or recurrence in patients with established pancreatic, hepatobiliary, or gastrointestinal malignancies. Clinical correlation is required.The CA 19-9 Antigen test was performed using the [email or web address] Unicel DXI paramagnetic particle chemiluminescent immunoassay method. Results obtained with different assay methods or kits cannot be used interchangeably. Performed By: #### 2 4108-3 ####[facility] LABCLIA [id number] [place] [address] [place] Comprehensive metabolic 2000 panelOrdered By: Elizabeth Yu on 10-03-2023 Albumin [Mass/Vol] 3.0 g/dL Low 3.9 - 4.9 g/dL [facility] ALP [Catalytic activity/Vol] 110 U/L 38 - 113 U/L [facility] ALT [Catalytic activity/Vol] 10 U/L 10 - 54 U/L [facility] Anion gap [Moles/Vol] 8 mmol/L Low 9 - 18 mmol/L [facility] AST [Catalytic activity/Vol] 11 U/L Low 14 - 40 U/L [facility] Bilirubin [Mass/Vol] 0.6 mg/dL 0.2 - 1 .3 mg/dL [facility] Calcium [Mass/Vol] 10.4 mg/dL High 8.5 - 10. 2 mg/dL [facility] Chloride [Moles/Vol] 100 mmol/L 97 - 10 5 mmol/L [facility] CO2 [Moles/Vol] 27 mmol/L 22 - 30 mmol/L [facility] Creatinine [Mass/Vol] 0.83 mg/dL 0.73 - 1.22 mg/dL [facility] GFR/1.73 sq M.predicted among non-blacks MDRD (S/P/Bld) [Vol rate/Area] 93 mL/min/{1.73_m2} - PINF [facility] Comment on above: Estimated Glomerular Filtration [...] 167 mg/dL High 74 - 99 mg/dL [facility] Comment on above: The [place] Diabete s Association (ADA) provides guidance for [...] Standards of Medical Care in Diabetes 2016, [place] Diabetes Association. Diabetes Care. 2016.39(Suppl 1). Interpretation and review of laboratory results Abnormal [facility] Potassium [Moles/Vol] 4.3 mmol/L 3.7 - 5.1 mmol/L [facility] Protein [Mass/Vol] 6.9 g/dL 6.3 - 8.0 g/dL [facility] Sodium [Moles/Vol] 135 mmol/L Low 136 - 144 mmol/L [facility] Urea nitrogen [Mass/Vol] 13 mg/dL 9 - 24 mg/dL [facility] Comprehensive metabolic 2000 panelon 10-03-2023 Albumin [Mass/Vol] 3.0 g/dL Low 3.9-4.9 [facility] Comment on above: Order Comment: Speci men Type: BLOOD SPECIMENOrdering Facility: [facility] Address: [address] [place] [address] Performed By: #### 2 4323-8 ####[facility] LABCLIA [id number] [place] [address] ALP [Catalytic activity/Vol] 110 U/L Normal 38-113 [facility] Comment on above: Order Comment: Speci men Type: BLOOD SPECIMENOrdering Facility: [facility] Address: [address] [place] [address] Performed By: #### 2 4323-8 ####[facility] LABCLIA [id number] [place] [address] ALT [Catalytic activity/Vol] 10 U/L Normal 10-54 [facility] Comment on above: Order Comment: Speci men Type: BLOOD SPECIMENOrdering Facility: [facility] Address: [address] [place] [address] Performed By: #### 2 4323-8 ####[facility] LABCLIA [id number] [place] [address] Anion gap [Moles/Vol] 8 mmol/L Low 9-18 [facility] Comment on above: Order Comment: Speci men Type: BLOOD SPECIMENOrdering Facility: [facility] Address: [address] [place] [address] Performed By: #### 2 4323-8 ####[facility] LABCLIA [id number] [place] [address] AST [Catalytic activity/Vol] 11 U/L Low 14-40 [facility] Comment on above: Order Comment: Speci men Type: BLOOD SPECIMENOrdering Facility: [facility] Address: [address] [place] [address] Performed By: #### 2 4323-8 ####[facility] LABCLIA [id number] [place] [address] Bilirubin [Mass/Vol] 0.6 mg/dL Normal 0.2-1.3 [facility] Comment on above: Order Comment: Speci men Type: BLOOD SPECIMENOrdering Facility: [facility] Address: [address] [place] [address] Performed By: #### 2 4323-8 ####[facility] LABCLIA [id number] [place] [address] Calcium [Mass/Vol] 10.4 mg/dL High 8.5-10.2 [facility] Comment on above: Order Comment: Speci men Type: BLOOD SPECIMENOrdering Facility: [facility] Address: [address] [place] [address] Performed By: #### 2 4323-8 ####[facility] LABCLIA [id number] [place] [address] Chloride [Moles/Vol] 100 mmol/L Normal 97-105 [facility] Comment on above: Order Comment: Speci men Type: BLOOD SPECIMENOrdering Facility: [facility] Address: [address] [place] [address] Performed By: #### 2 4323-8 ####[facility] LABCLIA [id number] [place] [address] CO2 [Moles/Vol] 27 mmol/L Normal 22-30 [facility] Comment on above: Order Comment: Speci men Type: BLOOD SPECIMENOrdering Facility: [facility] Address: [address] [place] [address] Performed By: #### 2 4323-8 ####[facility] LABCLIA [id number] [place] [address] Creatinine [Mass/Vol] 0.83 mg/dL Normal 0.73-1.22 [facility] Comment on above: Order Comment: Speci men Type: BLOOD SPECIMENOrdering Facility: [facility] Address: [address] [place] [address] Performed By: #### 2 4323-8 ####[facility] LABCLIA [id number] [place] [address] Creatinine and Glomerular filtration rate.predicted panel (S/P/Bld) 93 mL/min/1.73m??? Normal >=60 [facility] Comment on above: Order Comment: Speci men Type: BLOOD SPECIMENOrdering Facility: [facility] Address: [address] [place] [address] Result Comment: Kathy mated Glomerular Filtration Rate [...] actual GFR. Performed By: #### 2 4323-8 ####[facility] LABIA [id number] [place] [address] Glucose [Mass/Vol] 167 mg/dL High 74-99 [facility] Comment on above: Order Comment: Speci men Type: BLOOD SPECIMENOrdering Facility: [facility] Address: [address] [place], [place] [address] Result Comment: The [place] Diabetes Association (ADA) provides guidance for cutoff [...] Standards of Medical Care in Diabetes 2016, [place] Diabetes Association. Diabetes Care. 2016.39(Suppl 1). Performed By: #### 2 4323-8 ####[facility] LABCLIA [id number] [place] [address] Potassium [Moles/Vol] 4.3 mmol/L Normal 3.7-5.1 [facility] Comment on above: Order Comment: Speci men Type: BLOOD SPECIMENOrdering Facility: [facility] Address: [address] [place] [address] Performed By: #### 2 4323-8 ####[facility] LABCLIA [id number] [place] [address] Protein [Mass/Vol] 6.9 g/dL Normal 6.3-8.0 [facility] Comment on above: Order Comment: Rajanii men Type: BLOOD SPECIMENOrdering Facility: [facility] Address: [address] [place] [address] Performed By: #### 2 4323-8 ####[facility] LABCLIA [id number] [place] [address] Sodium [Moles/Vol] 135 mmol/L Low 136-144 [facility] Comment on above: Order Comment: Speci men Type: BLOOD SPECIMENOrdering Facility: [facility] Address: [address] [place], [place] [address] Performed By: #### 2 4323-8 ####[facility] LABCLIA [id number] [place] [address] Urea nitrogen [Mass/Vol] 13 mg/dL Normal 9-24 [facility] Comment on above: Order Comment: Speci men Type: BLOOD SPECIMENOrdering Facility: [facility] Address: [address] [place] [address] Performed By: #### 2 4323-8 ####[facility] LABCLIA [id number] [place] [address] XR CHEST 2V FRONTAL/LATon XR CHEST 2V FRONTAL/LAT Normal [facility] XR Chest PA and Lateralon IMPRESSION: No [...] any questions regarding this interpretation, please call [phone]. If you are unable to reach us at the number above, please feel free to contact [facility] eRadiology at [phone]. DIVISION OF RADIOLOGY * * *Final Report* [...] any questions regarding this interpretation, please call [phone]. If you are unable to reach us at the number above, please feel free to contact [facility] at [phone]. [facility] Radiology Study observation (narrative) [facility] XR Chest PA and LateralOrder ed By: Ccf Provider on 10-03-2023 [facility] CNPLivia 09-25-2023 CNPN Normal [facility] CNPNon 09-18-2023 CNPN Normal [facility] CBC W Auto Differential pane l (Bld)on 09-13-2023 Basophils (Bld) [#/Vol] [facility] Basophils/100 WBC (Bld) 0.5 % [facility] Differential cell count method Nom (Bld) Auto [facility] Eosinophils (Bld) [#/Vol] 0.03 10*3/uL [facility] Eosinophils/100 WBC (Bld) 0.8 % [facility] Erythrocyte distribution width (RBC) [Ratio] 14.6 % 11.5 - 15.0 % [facility] Hematocrit (Bld) [Volume fraction] 35.3 % Low 39.0 - 51.0 % [facility] Hemoglobin (Bld) [Mass/Vol] 11.4 g/dL Low 13.0 - 17.0 g/dL [facility] Immature granulocytes (Bld) [#/Vol] [facility] Immature granulocytes/100 WBC (Bld) 0.3 % [facility] Interpretation and review of laboratory results Abnormal [facility] Lymphocytes (Bld) [#/Vol] 1.33 10*3/uL [facility] Lymphocytes/100 WBC (Bld) 34.2 % [facility] MCH (RBC) [Entitic mass] 33.2 pg 26.0 - 34.0 pg [facility] MCHC (RBC) [Mass/Vol] 32.3 g/dL 30.5 - 36.0 g/dL [facility] MCV (RBC) [Entitic vol] 102.9 fL High 80.0 - 100.0 fL [facility] Monocytes (Bld) [#/Vol] 0.59 10*3/uL [facility] Monocytes/100 WBC (Bld) 15.2 % [facility] Neutrophils (Bld) [#/Vol] 1.91 10*3/uL [facility] Neutrophils/100 WBC (Bld) 49.0 % [facility] Nucleated RBC (Bld) [#/Vol] [facility] Nucleated RBC/100 WBC (Bld) [Ratio] 0.0 % /100 WBC [facility] Platelet mean volume (Bld) [Entitic vol] 10.0 fL 9.0 - 12.7 fL [facility] Platelets (Bld) [#/Vol] 255 10*3/uL [facility] RBC (Bld) [#/Vol] 3.43 10*6/uL Low 4.20 - 6.0 0 m/uL [facility] WBC (Bld) [#/Vol] 3.89 10*3/uL [facility] Basophils (Bld) [#/Vol] 10*3/uL Normal <0.11 [facility] Comment on above: Order Comment: Speci men Type: BLOOD SPECIMENOrdering Facility: [facility] Address: [address] [place] [address] Performed By: #### 5 7021-8 ####[facility] LABCLIA [id number] [place] [address] Basophils/100 WBC (Bld) 0.5 % Normal [facility] Comment on above: Order Comment: Speci men Type: BLOOD SPECIMENOrdering Facility: [facility] Address: [address] [place] [address] Performed By: #### 5 7021-8 ####[facility] LABCLIA [id number] [place] [address] Differential cell count method Nom (Bld) Auto Normal [facility] Comment on above: Order Comment: Speci men Type: BLOOD SPECIMENOrdering Facility: [facility] Address: [address] [place] [address] Performed By: #### 5 7021-8 ####[facility] LABCLIA [id number] [place] [address] Eosinophils (Bld) [#/Vol] 0.03 10*3/uL Normal <0.46 [facility] Comment on above: Order Comment: Speci men Type: BLOOD SPECIMENOrdering Facility: [facility] Address: [address] [place] [address] Performed By: #### 5 7021-8 ####[facility] LABCLIA [id number] [place] [address] Eosinophils/100 WBC (Bld) 0.8 % Normal [facility] Comment on above: Order Comment: Speci men Type: BLOOD SPECIMENOrdering Facility: [facility] Address: [address] [place] [address] Performed By: #### 5 7021-8 ####[facility] LABCLIA [id number] [place] [address] Erythrocyte distribution width (RBC) [Ratio] 14.6 % Normal 11.5-15.0 [facility] Comment on above: Order Comment: Speci men Type: BLOOD SPECIMENOrdering Facility: [facility] Address: [address] [place] [address] Performed By: #### 5 7021-8 ####[facility] LABCLIA [id number] [place] [address] Hematocrit (Bld) [Volume fraction] 35.3 % Low 39.0-51.0 [facility] Comment on above: Order Comment: Speci men Type: BLOOD SPECIMENOrdering Facility: [facility] Address: [address] [place] [address] Performed By: #### 5 7021-8 ####[facility] LABIA [id number] [place] [address] Hemoglobin (Bld) [Mass/Vol] 11.4 g/dL Low 13.0-17.0 [facility] Comment on above: Order Comment: Speci men Type: BLOOD SPECIMENOrdering Facility: [facility] Address: [address] [place] [address] Performed By: #### 5 7021-8 ####[facility] LABCLIA [id number] [place] [address] Immature granulocytes (Bld) [#/Vol] 10*3/uL Normal <0.10 [facility] Comment on above: Order Comment: Speci men Type: BLOOD SPECIMENOrdering Facility: [facility] Address: [address] [place] [address] Performed By: #### 5 7021-8 ####[facility] LABCLIA [id number] [place] [address] Immature granulocytes/100 WBC (Bld) 0.3 % Normal [facility] Comment on above: Order Comment: Speci men Type: BLOOD SPECIMENOrdering Facility: [facility] Address: [address] [place] [address] Performed By: #### 5 7021-8 ####[facility] LABCLIA [id number] [place] [address] Lymphocytes (Bld) [#/Vol] 1.33 10*3/uL Normal 1.00-4.00 [facility] Comment on above: Order Comment: Speci men Type: BLOOD SPECIMENOrdering Facility: [facility] Address: [address] [place] [address] Performed By: #### 5 7021-8 ####[facility] LABCLIA [id number] [place] [address] Lymphocytes/100 WBC (Bld) 34.2 % Normal [facility] Comment on above: Order Comment: Speci men Type: BLOOD SPECIMENOrdering Facility: [facility] Address: [address] [place] [address] Performed By: #### 5 7021-8 ####[facility] LABCLIA [id number] [place] [address] MCH (RBC) [Entitic mass] 33.2 pg Normal 26.0-34.0 [facility] Comment on above: Order Comment: Speci men Type: BLOOD SPECIMENOrdering Facility: [facility] Address: [address] [place] [address] Performed By: #### 5 7021-8 ####[facility] LABCLIA [id number] [place] [address] MCHC (RBC) [Mass/Vol] 32.3 g/dL Normal 30.5-36.0 [facility] Comment on above: Order Comment: Speci men Type: BLOOD SPECIMENOrdering Facility: [facility] Address: [address] [place] [address] Performed By: #### 5 7021-8 ####[facility] LABCLIA [id number] [place] [address] MCV (RBC) [Entitic vol] 102.9 fL High 80.0-100.0 [facility] Comment on above: Order Comment: Speci men Type: BLOOD SPECIMENOrdering Facility: [facility] Address: [address] [place] [address] Performed By: #### 5 7021-8 ####[facility] LABCLIA [id number] [place] [address] Monocytes (Bld) [#/Vol] 0.59 10*3/uL Normal <0.87 [facility] Comment on above: Order Comment: Speci men Type: BLOOD SPECIMENOrdering Facility: [facility] Address: [address] [place] [address] Performed By: #### 5 7021-8 ####[facility] LABCLIA [id number] [place] [address] Monocytes/100 WBC (Bld) 15.2 % Normal [facility] Comment on above: Order Comment: Speci men Type: BLOOD SPECIMENOrdering Facility: [facility] Address: [address] [place] [address] Performed By: #### 5 7021-8 ####[facility] LABCLIA [id number] [place] [address] Neutrophils (Bld) [#/Vol] 1.91 10*3/uL Normal 1.45-7.50 [facility] Comment on above: Order Comment: Speci men Type: BLOOD SPECIMENOrdering Facility: [facility] Address: [address] [place] [address] Performed By: #### 5 7021-8 ####[facility] LABCLIA [id number] [place] [address] Neutrophils/100 WBC (Bld) 49.0 % Normal [facility] Comment on above: Order Comment: Speci men Type: BLOOD SPECIMENOrdering Facility: [facility] Address: [address] [place] [address] Performed By: #### 5 7021-8 ####[facility] LABCLIA [id number] [place] [address] Nucleated RBC (Bld) [#/Vol] 10*3/uL Normal <0.01 [facility] Comment on above: Order Comment: Speci men Type: BLOOD SPECIMENOrdering Facility: [facility] Address: [address] [place] [address] Performed By: #### 5 7021-8 ####[facility] LABCLIA [id number] [place] [address] Nucleated RBC/100 WBC (Bld) [Ratio] 0.0 /100 WBC Normal [facility] Comment on above: Order Comment: Speci men Type: BLOOD SPECIMENOrdering Facility: [facility] Address: [address] [place] [address] Performed By: #### 5 7021-8 ####[facility] LABCLIA [id number] [place] [address] Platelet mean volume (Bld) [Entitic vol] 10.0 fL Normal 9.0-12.7 [facility] Comment on above: Order Comment: Speci men Type: BLOOD SPECIMENOrdering Facility: [facility] Address: [address] [place] [address] Performed By: #### 5 7021-8 ####[facility] LABCLIA [id number] [place] [address] Platelets (Bld) [#/Vol] 255 10*3/uL Normal 150-400 [facility] Comment on above: Order Comment: Speci men Type: BLOOD SPECIMENOrdering Facility: [facility] Address: [address] [place] [address] Performed By: #### 5 7021-8 ####[facility] LABCLIA [id number] [place] [address] RBC (Bld) [#/Vol] 3.43 10*6/uL Low 4.20-6.00 [facility] Comment on above: Order Comment: Speci men Type: BLOOD SPECIMENOrdering Facility: [facility] Address: [address] [place] [address] Performed By: #### 5 7021-8 ####[facility] LABCLIA [id number] [place] [address] WBC (Bld) [#/Vol] 3.89 10*3/uL Normal 3.70-11.00 [facility] Comment on above: Order Comment: Speci men Type: BLOOD SPECIMENOrdering Facility: [facility] Address: [address] [place] [address] Performed By: #### 5 7021-8 ####[facility] LABCLIA [id number] [place] [address] CNOVSPon 09-13-2023 CNOVSP Normal [facility] Cancer Ag19-9 SerPl-aCncon 0 09-13-2023 Cancer Ag 19-9 Qn 967.0 [arb'U]/mL High <36.0 [facility] Comment on above: Order Comment: Speci men Type: BLOOD SPECIMENOrdering Facility: [facility] Address: [address] [place] [address] Result Comment: [facility] er antigen 19-9 test is used as an aid in monitoring response to treatment or recurrence in patients with established pancreatic, hepatobiliary, or gastrointestinal malignancies. Clinical correlation is required.The CA 19-9 Antigen test was performed using the [employer] ([email or web address]) Unicel DXI paramagnetic particle chemiluminescent immunoassay method. Results obtained with different assay methods or kits cannot be used interchangeably. Performed By: #### 2 4108-3 ####[facility] LABCLIA [id number] [address] [place] Comprehensive metabolic 2000 panelOrdered By: Je Elias on 09-13-2023 Albumin [Mass/Vol] 3.8 g/dL Low 3.9 - 4.9 g/dL [facility] ALP [Catalytic activity/Vol] 136 U/L High 38 - 113 U/L [facility] ALT [Catalytic activity/Vol] 18 U/L 10 - 54 U/L [facility] Anion gap [Moles/Vol] 10 mmol/L 9 - 18 mmol/L [facility] AST [Catalytic activity/Vol] 16 U/L 14 - 40 U/L [facility] Bilirubin [Mass/Vol] 0.7 mg/dL 0.2 - 1 .3 mg/dL [facility] Calcium [Mass/Vol] 10.3 mg/dL High 8.5 - 10. 2 mg/dL [facility] Chloride [Moles/Vol] 109 mmol/L High 97 - 10 5 mmol/L [facility] CO2 [Moles/Vol] 24 mmol/L 22 - 30 mmol/L [facility] Creatinine [Mass/Vol] 0.81 mg/dL 0.73 - 1.22 mg/dL [facility] GFR/1.73 sq M.predicted among non-blacks MDRD (S/P/Bld) [Vol rate/Area] 94 mL/min/{1.73_m2} - PINF [facility] Comment on above: Estimated Glomerular Filtration [...] 142 mg/dL High 74 - 99 mg/dL [facility] Comment on above: The [place] Diabete s Association (ADA) provides guidance for [...] Standards of Medical Care in Diabetes 2016, Spanish Diabetes Association. Diabetes Care. 2016.39(Suppl 1). Interpretation and review of laboratory results Abnormal [facility] Potassium [Moles/Vol] 4.4 mmol/L 3.7 - 5.1 mmol/L [facility] Protein [Mass/Vol] 6.6 g/dL 6.3 - 8.0 g/dL [facility] Sodium [Moles/Vol] 143 mmol/L 136 - 144 mmol/L [facility] Urea nitrogen [Mass/Vol] 16 mg/dL 9 - 24 mg/dL [facility] Comprehensive metabolic 2000 panelon 09-13-2023 Albumin [Mass/Vol] 3.8 g/dL Low 3.9-4.9 [facility] Comment on above: Order Comment: Speci men Type: BLOOD SPECIMENOrdering Facility: [facility] Address: [address] [place] [address] Performed By: #### 2 4323-8 ####[facility] LABCLIA [id number] [place] [address] ALP [Catalytic activity/Vol] 136 U/L High 38-113 [facility] Comment on above: Order Comment: Speci men Type: BLOOD SPECIMENOrdering Facility: [facility] Address: [address] [place] [address] Performed By: #### 2 4323-8 ####[facility] LABCLIA [id number] [place] [address] ALT [Catalytic activity/Vol] 18 U/L Normal 10-54 [facility] Comment on above: Order Comment: Speci men Type: BLOOD SPECIMENOrdering Facility: [facility] Address: [address] [place] [address] Performed By: #### 2 4323-8 ####[facility] LABCLIA [id number] [place] [address] Anion gap [Moles/Vol] 10 mmol/L Normal 9-18 [facility] Comment on above: Order Comment: Speci men Type: BLOOD SPECIMENOrdering Facility: [facility] Address: [address] [place] [address] Performed By: #### 2 4323-8 ####[facility] LABCLIA [id number] [place] [address] AST [Catalytic activity/Vol] 16 U/L Normal 14-40 [facility] Comment on above: Order Comment: Speci men Type: BLOOD SPECIMENOrdering Facility: [facility] Address: [address] [place] [address] Performed By: #### 2 4323-8 ####[facility] LABCLIA [id number] [place] [address] Bilirubin [Mass/Vol] 0.7 mg/dL Normal 0.2-1.3 [facility] Comment on above: Order Comment: Speci men Type: BLOOD SPECIMENOrdering Facility: [facility] Address: [address] [place] [address] Performed By: #### 2 4323-8 ####[facility] LABCLIA [id number] [place] [address] Calcium [Mass/Vol] 10.3 mg/dL High 8.5-10.2 [facility] Comment on above: Order Comment: Speci men Type: BLOOD SPECIMENOrdering Facility: [facility] Address: [address] [place] [address] Performed By: #### 2 4323-8 ####[facility] LABCLIA [id number] [place] [address] Chloride [Moles/Vol] 109 mmol/L High 97-105 [facility] Comment on above: Order Comment: Speci men Type: BLOOD SPECIMENOrdering Facility: [facility] Address: [address] [place] [address] Performed By: #### 2 4323-8 ####[facility] LABCLIA [id number] [place] [address] CO2 [Moles/Vol] 24 mmol/L Normal 22-30 [facility] Comment on above: Order Comment: Speci men Type: BLOOD SPECIMENOrdering Facility: [facility] Address: [address] [place] [address] Performed By: #### 2 4323-8 ####[facility] LABCLIA [id number] [place] [address] Creatinine [Mass/Vol] 0.81 mg/dL Normal 0.73-1.22 [facility] Comment on above: Order Comment: Speci men Type: BLOOD SPECIMENOrdering Facility: [facility] Address: [address] [place] [address] Performed By: #### 2 4323-8 ####[facility] LABCLIA [id number] [place] [address] Creatinine and Glomerular filtration rate.predicted panel (S/P/Bld) 94 mL/min/1.73m??? Normal >=60 [facility] Comment on above: Order Comment: Speci men Type: BLOOD SPECIMENOrdering Facility: [facility] Address: [address] [place] [address] Result Comment: Kathy mated Glomerular Filtration Rate [...] actual GFR. Performed By: #### 2 4323-8 ####[facility] LABCLIA [id number] [place] [address] Glucose [Mass/Vol] 142 mg/dL High 74-99 [facility] Comment on above: Order Comment: Speci men Type: BLOOD SPECIMENOrdering Facility: [facility] Address: [address] [place] [address] Result Comment: The Spanish Diabetes Association (ADA) provides guidance for cutoff [...] Standards of Medical Care in Diabetes 2016, [place] Diabetes Association. Diabetes Care. 2016.39(Suppl 1). Performed By: #### 2 4323-8 ####[facility] LABCLIA [id number] [place] [address] Potassium [Moles/Vol] 4.4 mmol/L Normal 3.7-5.1 [facility] Comment on above: Order Comment: Speci men Type: BLOOD SPECIMENOrdering Facility: [facility] Address: [address] [place] [address] Performed By: #### 2 4323-8 ####[facility] LABCLIA [id number] [place] [address] Protein [Mass/Vol] 6.6 g/dL Normal 6.3-8.0 [facility] Comment on above: Order Comment: Speci men Type: BLOOD SPECIMENOrdering Facility: [facility] Address: [address] [place] [address] Performed By: #### 2 4323-8 ####[facility] LABCLIA [id number] [place] [address] Sodium [Moles/Vol] 143 mmol/L Normal 136-144 [facility] Comment on above: Order Comment: Speci men Type: BLOOD SPECIMENOrdering Facility: [facility] Address: [address] [place] [address] Performed By: #### 2 4323-8 ####[facility] LABCLIA [id number] [place] [address] Urea nitrogen [Mass/Vol] 16 mg/dL Normal 9-24 [facility] Comment on above: Order Comment: Speci men Type: BLOOD SPECIMENOrdering Facility: [facility] Address: [address] [place] [address] [place] [address] Performed By: #### 2 4323-8 ####[facility] LABCLIA [id number] [place] [address] FERRITIN BLDon 09-13-2023 Ferritin [Mass/Vol] 56.8 ng/mL 30.3 - 565.7 ng/mL [facility] Ferritin SerPl-mCncon 2023 Ferritin [Mass/Vol] 56.8 ng/mL Normal 30.3-565.7 [facility] Comment on above: Order Comment: Speci men Type: BLOOD SPECIMENOrdering Facility: [facility] Address: [address] [place] [address] Performed By: #### 5 0190-8, 2275-08, 2132-01 ####[facility] LABCLIA [id number] [place] [id number] [place] Iron and Iron binding capaci ty panelon 09-13-2023 Interpretation and review of laboratory results Normal [facility] Iron [Mass/Vol] 55 ug/dL 41 - 186 ug/dL [facility] Iron binding capacity [Mass/Vol] 335 ug/dL 232 - 386 ug/dL [facility] Iron/TIBC [Molar ratio] 16.4 % 15.0 - 57.0 % [facility] Iron [Mass/Vol] 55 ug/dL Normal 41-186 [facility] Comment on above: Order Comment: Speci men Type: BLOOD SPECIMENOrdering Facility: [facility] Address: [place] [address] Performed By: #### 5 0190-8, 2275-4, 2132-01 ####[facility] LABCLIA [id number] [facility] [place] [address] [place] Iron binding capacity [Mass/Vol] 335 ug/dL Normal 232-386 [facility] Comment on above: Order Comment: Speci men Type: BLOOD SPECIMENOrdering Facility: [facility] Address: [address] [place], [place] [address] [id number] Performed By: #### 5 0190-8, 2275-08, 2132-01 ####[facility] LABCLIA [id number] [place] [address] [place] Iron/TIBC [Molar ratio] 16.4 % Normal 15.0-57.0 [facility] Comment on above: Order Comment: Speci men Type: BLOOD SPECIMENOrdering Facility: [facility] Address: [address] [place] [address] [place] [address] Performed By: #### 5 0190-8, 2275-08, 2132-01 ####[facility] LABCLIA [id number] [address] [place] No Panel Informationon 09-12 Interpretation and review of laboratory results Normal [facility] VITAMIN B12 BLOODon 09-13-19 24 Cobalamin (Vitamin B12) [Mass/Vol] 720 pg/mL 232 - 1245 pg/mL [facility] Vit B12 SerPl-mCncon 024 Cobalamin (Vitamin B12) [Mass/Vol] 720 pg/mL Normal 232-1245 [facility] Comment on above: Order Comment: Speci men Type: BLOOD SPECIMENOrdering Facility: [facility] Address: [address] [place], [place] [address] Performed By: #### 5 0190-8, 2275-08, 2132-01 ####[facility] LABCLIA [id number] [place] [id number] [place] CBC W Auto Differential pane l (Bld)on 08-23-2023 Basophils (Bld) [#/Vol] <0.11 k/uL [facility] Basophils/100 WBC (Bld) 0.4 % [facility] Differential cell count method Nom (Bld) Auto [facility] Eosinophils (Bld) [#/Vol] 0.04 10*3/uL <0.46 k/uL [facility] Eosinophils/100 WBC (Bld) 0.8 % [facility] Erythrocyte distribution width (RBC) [Ratio] 15.3 % High 11.5 - 15.0 % [facility] Hematocrit (Bld) [Volume fraction] 34.6 % Low 39.0 - 51.0 % [facility] Hemoglobin (Bld) [Mass/Vol] 11.3 g/dL Low 13.0 - 17.0 g/dL [facility] Immature granulocytes (Bld) [#/Vol] <0.10 k/uL [facility] Immature granulocytes/100 WBC (Bld) 0.4 % [facility] Lymphocytes (Bld) [#/Vol] 1.95 10*3/uL 1.00 - 4.00 k/uL [facility] Lymphocytes/100 WBC (Bld) 40.7 % [facility] MCH (RBC) [Entitic mass] 34.1 pg High 26.0 - 34.0 pg [facility] MCHC (RBC) [Mass/Vol] 32.7 g/dL 30.5 - 36.0 g/dL [facility] MCV (RBC) [Entitic vol] 104.5 fL High 80.0 - 100.0 fL [facility] Monocytes (Bld) [#/Vol] 0.72 10*3/uL <0.87 k/uL [facility] Monocytes/100 WBC (Bld) 15.0 % [facility] Neutrophils (Bld) [#/Vol] 2.04 10*3/uL 1.45 - 7.50 k/uL [facility] Neutrophils/100 WBC (Bld) 42.7 % [facility] Nucleated RBC (Bld) [#/Vol] <0.01 k/uL [facility] Nucleated RBC/100 WBC (Bld) [Ratio] 0.0 /100 WBC [facility] Platelet mean volume (Bld) [Entitic vol] 10.0 fL 9.0 - 12.7 fL [facility] Platelets (Bld) [#/Vol] 241 10*3/uL 150 - 400 k/uL [facility] RBC (Bld) [#/Vol] 3.31 10*6/uL Low 4.20 - 6.0 0 m/uL [facility] WBC (Bld) [#/Vol] 4.79 10*3/uL 3.70 - 11.00 k/uL [facility] Basophils (Bld) [#/Vol] 10*3/uL Normal <0.11 [facility] Comment on above: Order Comment: Speci men Type: BLOOD SPECIMENOrdering Facility: [facility] Address: [address] [place] [address] Performed By: #### 5 7021-8 ####[facility] LABCLIA [id number] [place] [address] Basophils/100 WBC (Bld) 0.4 % Normal [facility] Comment on above: Order Comment: Speci men Type: BLOOD SPECIMENOrdering Facility: [facility] Address: [address] [place] [address] Performed By: #### 5 7021-8 ####[facility] LABCLIA [id number] [place] [address] Differential cell count method Nom (Bld) Auto Normal [facility] Comment on above: Order Comment: Speci men Type: BLOOD SPECIMENOrdering Facility: [facility] Address: [address] [place] [address] Performed By: #### 5 7021-8 ####[facility] LABCLIA [id number] [place] [address] Eosinophils (Bld) [#/Vol] 0.04 10*3/uL Normal <0.46 [facility] Comment on above: Order Comment: Speci men Type: BLOOD SPECIMENOrdering Facility: [facility] Address: [address] [place] [address] Performed By: #### 5 7021-8 ####[facility] LABCLIA [id number] [place] [address] Eosinophils/100 WBC (Bld) 0.8 % Normal [facility] Comment on above: Order Comment: Speci men Type: BLOOD SPECIMENOrdering Facility: [facility] Address: [address] [place] [address] Performed By: #### 5 7021-8 ####[facility] LABCLIA [id number] [place] [address] Erythrocyte distribution width (RBC) [Ratio] 15.3 % High 11.5-15.0 [facility] Comment on above: Order Comment: Speci men Type: BLOOD SPECIMENOrdering Facility: [facility] Address: [address] [place] [address] Performed By: #### 5 7021-8 ####[facility] LABCLIA [id number] [place] [address] Hematocrit (Bld) [Volume fraction] 34.6 % Low 39.0-51.0 [facility] Comment on above: Order Comment: Speci men Type: BLOOD SPECIMENOrdering Facility: [facility] Address: [address] [place] [address] Performed By: #### 5 7021-8 ####[facility] LABCLIA [id number] [place] [address] Hemoglobin (Bld) [Mass/Vol] 11.3 g/dL Low 13.0-17.0 [facility] Comment on above: Order Comment: Speci men Type: BLOOD SPECIMENOrdering Facility: [facility] Address: [address] [place] [address] Performed By: #### 5 7021-8 ####[facility] LABCLIA [id number] [place] [address] Immature granulocytes (Bld) [#/Vol] 10*3/uL Normal <0.10 [facility] Comment on above: Order Comment: Speci men Type: BLOOD SPECIMENOrdering Facility: [facility] Address: [address] [place] [address] Performed By: #### 5 7021-8 ####[facility] LABCLIA [id number] [place] [address] Immature granulocytes/100 WBC (Bld) 0.4 % Normal [facility] Comment on above: Order Comment: Speci men Type: BLOOD SPECIMENOrdering Facility: [facility] Address: [address] [place] [address] Performed By: #### 5 7021-8 ####[facility] LABCLIA [id number] [place] [address] Lymphocytes (Bld) [#/Vol] 1.95 10*3/uL Normal 1.00-4.00 [facility] Comment on above: Order Comment: Speci men Type: BLOOD SPECIMENOrdering Facility: [facility] Address: [address] [place] [address] Performed By: #### 5 7021-8 ####[facility] LABCLIA [id number] [place] [address] Lymphocytes/100 WBC (Bld) 40.7 % Normal [facility] Comment on above: Order Comment: Speci men Type: BLOOD SPECIMENOrdering Facility: [facility] Address: [address] [place] [address] Performed By: #### 5 7021-8 ####[facility] LABCLIA [id number] [place] [address] MCH (RBC) [Entitic mass] 34.1 pg High 26.0-34.0 [facility] Comment on above: Order Comment: Speci men Type: BLOOD SPECIMENOrdering Facility: [facility] Address: [address] [place] [address] Performed By: #### 5 7021-8 ####[facility] LABCLIA [id number] [place] [address] MCHC (RBC) [Mass/Vol] 32.7 g/dL Normal 30.5-36.0 [facility] Comment on above: Order Comment: Speci men Type: BLOOD SPECIMENOrdering Facility: [facility] Address: [address] [place] [address] Performed By: #### 5 7021-8 ####[facility] LABCLIA [id number] [place] [address] MCV (RBC) [Entitic vol] 104.5 fL High 80.0-100.0 [facility] Comment on above: Order Comment: Speci men Type: BLOOD SPECIMENOrdering Facility: [facility] Address: [address] [place] [address] Performed By: #### 5 7021-8 ####[facility] LABCLIA [id number] [place] [address] Monocytes (Bld) [#/Vol] 0.72 10*3/uL Normal <0.87 [facility] Comment on above: Order Comment: Speci men Type: BLOOD SPECIMENOrdering Facility: [facility] Address: [address] [place] [address] Performed By: #### 5 7021-8 ####[facility] LABIA [id number] [place] [address] Monocytes/100 WBC (Bld) 15.0 % Normal [facility] Comment on above: Order Comment: Speci men Type: BLOOD SPECIMENOrdering Facility: [facility] Address: [address] [place] [address] Performed By: #### 5 7021-8 ####[facility] LABCLIA [id number] [place] [address] Neutrophils (Bld) [#/Vol] 2.04 10*3/uL Normal 1.45-7.50 [facility] Comment on above: Order Comment: Speci men Type: BLOOD SPECIMENOrdering Facility: [facility] Address: [address] [place] [address] Performed By: #### 5 7021-8 ####[facility] LABIA [id number] [place] [address] Neutrophils/100 WBC (Bld) 42.7 % Normal [facility] Comment on above: Order Comment: Speci men Type: BLOOD SPECIMENOrdering Facility: [facility] Address: [address] [place] [address] Performed By: #### 5 7021-8 ####[facility] LABCLIA [id number] [place] [address] Nucleated RBC (Bld) [#/Vol] 10*3/uL Normal <0.01 [facility] Comment on above: Order Comment: Speci men Type: BLOOD SPECIMENOrdering Facility: [facility] Address: [address] [place] [address] Performed By: #### 5 7021-8 ####[facility] LABCLIA [id number] [place] [address] Nucleated RBC/100 WBC (Bld) [Ratio] 0.0 /100 WBC Normal [facility] Comment on above: Order Comment: Speci men Type: BLOOD SPECIMENOrdering Facility: [facility] Address: [address] [place] [address] Performed By: #### 5 7021-8 ####[facility] LABCLIA [id number] [place] [address] Platelet mean volume (Bld) [Entitic vol] 10.0 fL Normal 9.0-12.7 [facility] Comment on above: Order Comment: Speci men Type: BLOOD SPECIMENOrdering Facility: [facility] Address: [address] [place] [address] Performed By: #### 5 7021-8 ####[facility] LABCLIA [id number] [place] [address] Platelets (Bld) [#/Vol] 241 10*3/uL Normal 150-400 [facility] Comment on above: Order Comment: Speci men Type: BLOOD SPECIMENOrdering Facility: [facility] Address: [address] [place] [address] Performed By: #### 5 7021-8 ####[facility] LABCLIA [id number] [place] [address] RBC (Bld) [#/Vol] 3.31 10*6/uL Low 4.20-6.00 [facility] Comment on above: Order Comment: Speci men Type: BLOOD SPECIMENOrdering Facility: [facility] Address: [address] [place] [address] Performed By: #### 5 7021-8 ####[facility] LABCLIA [id number] [place] [address] WBC (Bld) [#/Vol] 4.79 10*3/uL Normal 3.70-11.00 [facility] Comment on above: Order Comment: Speci men Type: BLOOD SPECIMENOrdering Facility: [facility] Address: [address] [place] [address] Performed By: #### 5 7021-8 ####[facility] LABCLIA [id number] [place] [address] CNOVSPon 08-23-2023 CNOVSP Normal [facility] Cancer Ag19-9 SerPl-aCncon 0 08-23-2023 Cancer Ag 19-9 Qn 1509.0 [arb'U]/mL High <36.0 [facility] Comment on above: Order Comment: Speci men Type: BLOOD SPECIMENOrdering Facility: [facility] Address: [address] [place] [address] Result Comment: [facility] er antigen 19-9 test is used as an aid in monitoring response to treatment or recurrence in patients with established pancreatic, hepatobiliary, or gastrointestinal malignancies. Clinical correlation is required.The CA 19-9 Antigen test was performed using the [employer] ([employer] Un[employer] DXI paramagnetic particle chemiluminescent immunoassay method. Results obtained with different assay methods or kits cannot be used interchangeably. Performed By: #### 2 4108-3 ####[facility] [id number] [place] [address] [facility] Comprehensive metabolic 2000 panelon 08-23-2023 Albumin [Mass/Vol] 4.0 g/dL 3.9 - 4.9 g/dL [facility] ALP [Catalytic activity/Vol] 139 U/L High 38 - 113 U/L [facility] [facility] ALT [Catalytic activity/Vol] 16 U/L 10 - 54 U/L [facility] Anion gap [Moles/Vol] 9 mmol/L 9 - 18 mmol/L [facility] AST [Catalytic activity/Vol] 16 U/L 14 - 40 U/L [facility] Bilirubin [Mass/Vol] 0.8 mg/dL 0.2 - 1 .3 mg/dL [facility] Calcium [Mass/Vol] 10.7 mg/dL High 8.5 - 10. 2 mg/dL [facility] Chloride [Moles/Vol] 105 mmol/L 97 - 10 5 mmol/L [facility] CO2 [Moles/Vol] 25 mmol/L 22 - 30 mmol/L [facility] Creatinine [Mass/Vol] 0.83 mg/dL 0.73 - 1.22 mg/dL [facility] Estimated Glomerular Filtration Rate 93 mL/min/1.73m >=60 mL/min/1.73 m [facility] Glucose [Mass/Vol] 142 mg/dL High 74 - 99 mg/dL [facility] Potassium [Moles/Vol] 4.1 mmol/L 3.7 - 5.1 mmol/L [facility] Protein [Mass/Vol] 6.9 g/dL 6.3 - 8.0 g/dL [facility] Sodium [Moles/Vol] 139 mmol/L 136 - 144 mmol/L [facility] Urea nitrogen [Mass/Vol] 19 mg/dL 9 - 24 mg/dL [facility] Albumin [Mass/Vol] 4.0 g/dL Normal 3.9-4.9 [facility] Comment on above: Order Comment: Speci men Type: BLOOD SPECIMENOrdering Facility: [facility] Address: [address] [place] [address] Performed By: #### 2 4323-8 ####[facility] LABCLIA [id number] [place] [address] ALP [Catalytic activity/Vol] 139 U/L High 38-113 [facility] Comment on above: Order Comment: Speci men Type: BLOOD SPECIMENOrdering Facility: [facility] Address: [address] [place] [address] Performed By: #### 2 4323-8 ####[facility] LABCLIA [id number] [place] [address] ALT [Catalytic activity/Vol] 16 U/L Normal 10-54 [facility] Comment on above: Order Comment: Speci men Type: BLOOD SPECIMENOrdering Facility: [facility] Address: [address] [place] [address] Performed By: #### 2 4323-8 ####[facility] LABCLIA [id number] [place] [address] Anion gap [Moles/Vol] 9 mmol/L Normal 9-18 [facility] Comment on above: Order Comment: Speci men Type: BLOOD SPECIMENOrdering Facility: [facility] Address: [address] [place], [place] [address] Performed By: #### 2 4323-8 ####[facility] LABCLIA [id number] [place] [address] AST [Catalytic activity/Vol] 16 U/L Normal 14-40 [facility] Comment on above: Order Comment: Speci men Type: BLOOD SPECIMENOrdering Facility: [facility] Address: [address] [place], [place] [address] Performed By: #### 2 4323-8 ####[facility] LABCLIA [id number] [place] [address] Bilirubin [Mass/Vol] 0.8 mg/dL Normal 0.2-1.3 [facility] Comment on above: Order Comment: Speci men Type: BLOOD SPECIMENOrdering Facility: [facility] Address: [address] [place] [address] Performed By: #### 2 4323-8 ####[facility] LABCLIA [id number] [place] [address] Calcium [Mass/Vol] 10.7 mg/dL High 8.5-10.2 [facility] Comment on above: Order Comment: Speci men Type: BLOOD SPECIMENOrdering Facility: [facility] Address: [address] [place] [address] Performed By: #### 2 4323-8 ####[facility] LABCLIA [id number] [place] [address] Chloride [Moles/Vol] 105 mmol/L Normal 97-105 [facility] Comment on above: Order Comment: Speci men Type: BLOOD SPECIMENOrdering Facility: [facility] Address: [address] [place] [address] Performed By: #### 2 4323-8 ####[facility] LABCLIA [id number] [place] [address] CO2 [Moles/Vol] 25 mmol/L Normal 22-30 [facility] Comment on above: Order Comment: Speci men Type: BLOOD SPECIMENOrdering Facility: [facility] Address: [address] [place] [address] Performed By: #### 2 4323-8 ####[facility] LABCLIA [id number] [place] [address] Creatinine [Mass/Vol] 0.83 mg/dL Normal 0.73-1.22 [facility] Comment on above: Order Comment: Speci men Type: BLOOD SPECIMENOrdering Facility: [facility] Address: [address] [place] [address] Performed By: #### 2 4323-8 ####[facility] LABCLIA [id number] [place] [address] Creatinine and Glomerular filtration rate.predicted panel (S/P/Bld) 93 mL/min/1.73m??? Normal >=60 [facility] Comment on above: Order Comment: Speci men Type: BLOOD SPECIMENOrdering Facility: [facility] Address: [address] [place] [address] Result Comment: Kathy mated Glomerular Filtration Rate [...] actual GFR. Performed By: #### 2 4323-8 ####[facility] LABCLIA [id number] [place] [address] Glucose [Mass/Vol] 142 mg/dL High 74-99 [facility] Comment on above: Order Comment: Noemí hoff Type: BLOOD SPECIMENOrdering Facility: [facility] Address: [address] [place] [address] Result Comment: The [place] Diabetes Association (ADA) provides guidance for cutoff [...] Standards of Medical Care in Diabetes 2016, [place] [employer]. Diabetes Care. 2016.39(Suppl 1). Performed By: #### 2 4323-8 ####[facility] LABCLIA [id number] [place] [address] Potassium [Moles/Vol] 4.1 mmol/L Normal 3.7-5.1 [facility] Comment on above: Order Comment: Noemí hoff Type: BLOOD SPECIMENOrdering Facility: [facility] Address: [address] [place] [address] Performed By: #### 2 4323-8 ####[facility] LABCLIA [id number] [place] [address] Protein [Mass/Vol] 6.9 g/dL Normal 6.3-8.0 [facility] Comment on above: Order Comment: Noemí men Type: BLOOD SPECIMENOrdering Facility: [facility] Address: [address] [place] [address] Performed By: #### 2 4323-8 ####[facility] LABCLIA [id number] [place] [address] Sodium [Moles/Vol] 139 mmol/L Normal 136-144 [facility] Comment on above: Order Comment: Speci men Type: BLOOD SPECIMENOrdering Facility: [facility] Address: [address] [place], [place] [address] Performed By: #### 2 4323-8 ####[facility] LABCLIA [id number] [place] [address] Urea nitrogen [Mass/Vol] 19 mg/dL Normal 9-24 [facility] Comment on above: Order Comment: Speci men Type: BLOOD SPECIMENOrdering Facility: [facility] Address: [address] [place] [address] Performed By: #### 2 4323-8 ####[facility] LABCLIA [id number] [place] [address] CNPNon 08-18-2023 CNPN Normal [facility] CT ABD/PEL W IVCONon 024 CT ABD/PEL W IVCON Normal [facility] CT Abdomen and Pelvis W cont [...] any questions regarding this interpretation, please call [phone]. If you are unable to reach us at the number above, please feel free to contact [facility] at [phone]. DIVISION OF RADIOLOGY * * *Final Report* * * DATE OF EXAM: Aug 18 2023 10:27AM [facility] 0530 - CT ABD/PEL W IVCON / [...] chest CT performed will be reported separately. Nitrating Acid Mixer (topogram) images: No additional findings. DIVISION OF RADIOLOGY Provider, [facility] 08/18/2023 * * *Final Report* * * DATE OF EXAM: Aug 18 2023 10:27AM [facility] 0530 - CT ABD/PEL W IVCON / [...] chest CT performed will be reported separately. Nitrating Acid Mixer (topogram) images: No additional findings. IMPRESSION IMPRESSION: [...] any questions regarding this interpretation, please call [phone]. If you are unable to reach us at the number above, please feel free to contact [facility] eRadiology at [phone]. [facility] CT CHEST W IVCONon CT CHEST W IVCON Normal [place] [facility] CT Chest W contrast [place] IMPRESSION: 1. [...] any questions regarding this interpretation, please call [phone]. If you are unable to reach us at the number above, please feel free to contact [facility] at [phone]. DIVISION OF RADIOLOGY * * *Final Report* * * DATE OF EXAM: Aug 18 2023 10:27AM [facility] 0539 - CT CHEST W IVCON / [...] was performed and will be reported separately. Nitrating Acid Mixer (topogram) images: No additional findings. DIVISION OF RADIOLOGY Provider, [facility] Araceli [facility] - 08/18/2023 * * *Final Report* * * DATE OF EXAM: Aug 18 2023 10:27AM [facility] 0539 - CT CHEST W IVCON / [...] was performed and will be reported separately. Nitrating Acid Mixer (topogram) images: No additional findings. IMPRESSION IMPRESSION: [...] any questions regarding this interpretation, please call [phone]. If you are unable to reach us at the number above, please feel free to contact [facility] eRadiology at [phone]. [facility] CT Chest W contrast IVOrdere d By: Ccf Provider on 08-18-2023 [facility] No Panel Informationon 08-17 Radiology Study observation (narrative) [facility] CNPNon 08-09-2023 CNPN Normal [facility] CBC W Auto Differential pane l (Bld)on 08-02-2023 Basophils (Bld) [#/Vol] <0.11 k/uL [facility] Basophils/100 WBC (Bld) 0.4 % [facility] Differential cell count method Nom (Bld) Auto [facility] Eosinophils (Bld) [#/Vol] 0.07 10*3/uL <0.46 k/uL [facility] Eosinophils/100 WBC (Bld) 1.3 % [facility] Erythrocyte distribution width (RBC) [Ratio] 17.4 % High 11.5 - 15.0 % [facility] Hematocrit (Bld) [Volume fraction] 31.6 % Low 39.0 - 51.0 % [facility] Hemoglobin (Bld) [Mass/Vol] 10.3 g/dL Low 13.0 - 17.0 g/dL [facility] Immature granulocytes (Bld) [#/Vol] <0.10 k/uL [facility] Immature granulocytes/100 WBC (Bld) 0.4 % [facility] Lymphocytes (Bld) [#/Vol] 1.29 10*3/uL 1.00 - 4.00 k/uL [facility] Lymphocytes/100 WBC (Bld) 24.0 % [facility] MCH (RBC) [Entitic mass] 34.0 pg 26.0 - 34.0 pg [facility] MCHC (RBC) [Mass/Vol] 32.6 g/dL 30.5 - 36.0 g/dL [facility] MCV (RBC) [Entitic vol] 104.3 fL High 80.0 - 100.0 fL [facility] Monocytes (Bld) [#/Vol] 0.48 10*3/uL <0.87 k/uL [facility] Monocytes/100 WBC (Bld) 8.9 % [facility] Neutrophils (Bld) [#/Vol] 3.50 10*3/uL 1.45 - 7.50 k/uL [facility] Neutrophils/100 WBC (Bld) 65.0 % [facility] Nucleated RBC (Bld) [#/Vol] <0.01 k/uL [facility] Nucleated RBC/100 WBC (Bld) [Ratio] 0.0 /100 WBC [facility] Platelet mean volume (Bld) [Entitic vol] 9.2 fL 9.0 - 12.7 fL [facility] Platelets (Bld) [#/Vol] 224 10*3/uL 150 - 400 k/uL [facility] RBC (Bld) [#/Vol] 3.03 10*6/uL Low 4.20 - 6.0 0 m/uL [facility] WBC (Bld) [#/Vol] 5.38 10*3/uL 3.70 - 11.00 k/uL [facility] Basophils (Bld) [#/Vol] 10*3/uL Normal <0.11 [facility] Comment on above: Order Comment: Speci men Type: BLOOD SPECIMENOrdering Facility: [facility] Address: [address] [place] [address] Performed By: #### 5 7021-8 ####[facility] LABCLIA [id number] [place] [address] Basophils/100 WBC (Bld) 0.4 % Normal [facility] Comment on above: Order Comment: Speci men Type: BLOOD SPECIMENOrdering Facility: [facility] Address: [address] [place] [address] Performed By: #### 5 7021-8 ####[facility] LABCLIA [id number] [place] [address] Differential cell count method Nom (Bld) Auto Normal [facility] Comment on above: Order Comment: Speci men Type: BLOOD SPECIMENOrdering Facility: [facility] Address: [address] [place] [address] Performed By: #### 5 7021-8 ####[facility] LABCLIA [id number] [place] [address] Eosinophils (Bld) [#/Vol] 0.07 10*3/uL Normal <0.46 [facility] Comment on above: Order Comment: Speci men Type: BLOOD SPECIMENOrdering Facility: [facility] Address: [address] [place] [address] Performed By: #### 5 7021-8 ####[facility] LABCLIA [id number] [place] [address] Eosinophils/100 WBC (Bld) 1.3 % Normal [facility] Comment on above: Order Comment: Speci men Type: BLOOD SPECIMENOrdering Facility: [facility] Address: [address] [place] [address] Performed By: #### 5 7021-8 ####[facility] LABCLIA [id number] [place] [address] Erythrocyte distribution width (RBC) [Ratio] 17.4 % High 11.5-15.0 [facility] Comment on above: Order Comment: Speci men Type: BLOOD SPECIMENOrdering Facility: [facility] Address: [address] [place] [address] Performed By: #### 5 7021-8 ####[facility] LABIA [id number] [place] [address] Hematocrit (Bld) [Volume fraction] 31.6 % Low 39.0-51.0 [facility] Comment on above: Order Comment: Speci men Type: BLOOD SPECIMENOrdering Facility: [facility] Address: [address] [place] [address] Performed By: #### 5 7021-8 ####[facility] LABCLIA [id number] [place] [address] Hemoglobin (Bld) [Mass/Vol] 10.3 g/dL Low 13.0-17.0 [facility] Comment on above: Order Comment: Speci men Type: BLOOD SPECIMENOrdering Facility: [facility] Address: [address] [place] [address] Performed By: #### 5 7021-8 ####[facility] LABCLIA [id number] [place] [address] Immature granulocytes (Bld) [#/Vol] 10*3/uL Normal <0.10 [facility] Comment on above: Order Comment: Speci men Type: BLOOD SPECIMENOrdering Facility: [facility] Address: [address] [place] [address] Performed By: #### 5 7021-8 ####[facility] LABCLIA [id number] [place] [address] Immature granulocytes/100 WBC (Bld) 0.4 % Normal [facility] Comment on above: Order Comment: Speci men Type: BLOOD SPECIMENOrdering Facility: [facility] Address: [address] [place] [address] Performed By: #### 5 7021-8 ####[facility] LABCLIA [id number] [place] [address] Lymphocytes (Bld) [#/Vol] 1.29 10*3/uL Normal 1.00-4.00 [facility] Comment on above: Order Comment: Speci men Type: BLOOD SPECIMENOrdering Facility: [facility] Address: [address] [place] [address] Performed By: #### 5 7021-8 ####[facility] LABCLIA [id number] [place] [address] Lymphocytes/100 WBC (Bld) 24.0 % Normal [facility] Comment on above: Order Comment: Speci men Type: BLOOD SPECIMENOrdering Facility: [facility] Address: [address] [place] [address] Performed By: #### 5 7021-8 ####[facility] LABCLIA [id number] [place] [address] MCH (RBC) [Entitic mass] 34.0 pg Normal 26.0-34.0 [facility] Comment on above: Order Comment: Speci men Type: BLOOD SPECIMENOrdering Facility: [facility] Address: [address] [place] [address] Performed By: #### 5 7021-8 ####[facility] LABIA [id number] [place] [address] MCHC (RBC) [Mass/Vol] 32.6 g/dL Normal 30.5-36.0 [facility] Comment on above: Order Comment: Speci men Type: BLOOD SPECIMENOrdering Facility: [facility] Address: [address] [place] [address] Performed By: #### 5 7021-8 ####[facility] LABIA [id number] [place] [address] MCV (RBC) [Entitic vol] 104.3 fL High 80.0-100.0 [facility] Comment on above: Order Comment: Speci men Type: BLOOD SPECIMENOrdering Facility: [facility] Address: [address] [place] [address] Performed By: #### 5 7021-8 ####[facility] LABIA [id number] [place] [address] Monocytes (Bld) [#/Vol] 0.48 10*3/uL Normal <0.87 [facility] Comment on above: Order Comment: Speci men Type: BLOOD SPECIMENOrdering Facility: [facility] Address: [address] [place] [address] Performed By: #### 5 7021-8 ####[facility] LABCLIA [id number] [place] [address] Monocytes/100 WBC (Bld) 8.9 % Normal [facility] Comment on above: Order Comment: Speci men Type: BLOOD SPECIMENOrdering Facility: [facility] Address: [address] [place] [address] Performed By: #### 5 7021-8 ####[facility] LABCLIA [id number] [place] [address] Neutrophils (Bld) [#/Vol] 3.50 10*3/uL Normal 1.45-7.50 [facility] Comment on above: Order Comment: Speci men Type: BLOOD SPECIMENOrdering Facility: [facility] Address: [address] [place] [address] Performed By: #### 5 7021-8 ####[facility] LABCLIA [id number] [place] [address] Neutrophils/100 WBC (Bld) 65.0 % Normal [facility] Comment on above: Order Comment: Speci men Type: BLOOD SPECIMENOrdering Facility: [facility] Address: [address] [place] [address] Performed By: #### 5 7021-8 ####[facility] LABCLIA [id number] [place] [address] Nucleated RBC (Bld) [#/Vol] 10*3/uL Normal <0.01 [facility] Comment on above: Order Comment: Speci men Type: BLOOD SPECIMENOrdering Facility: [facility] Address: [address] [place] [address] Performed By: #### 5 7021-8 ####[facility] LABCLIA [id number] [place] [address] Nucleated RBC/100 WBC (Bld) [Ratio] 0.0 /100 WBC Normal [facility] Comment on above: Order Comment: Speci men Type: BLOOD SPECIMENOrdering Facility: [facility] Address: [address] [place] [address] Performed By: #### 5 7021-8 ####[facility] LABCLIA [id number] [place] [address] Platelet mean volume (Bld) [Entitic vol] 9.2 fL Normal 9.0-12.7 [facility] Comment on above: Order Comment: Speci men Type: BLOOD SPECIMENOrdering Facility: [facility] Address: [address] [place] [address] Performed By: #### 5 7021-8 ####[facility] LABCLIA [id number] [place] [address] Platelets (Bld) [#/Vol] 224 10*3/uL Normal 150-400 [facility] Comment on above: Order Comment: Speci men Type: BLOOD SPECIMENOrdering Facility: [facility] Address: [address] [place] [address] Performed By: #### 5 7021-8 ####[facility] LABCLIA [id number] [place] [address] RBC (Bld) [#/Vol] 3.03 10*6/uL Low 4.20-6.00 [facility] Comment on above: Order Comment: Speci men Type: BLOOD SPECIMENOrdering Facility: [facility] Address: [address] [place] [address] Performed By: #### 5 7021-8 ####[facility] LABCLIA [id number] [place] [address] WBC (Bld) [#/Vol] 5.38 10*3/uL Normal 3.70-11.00 [facility] Comment on above: Order Comment: Speci men Type: BLOOD SPECIMENOrdering Facility: [facility] Address: [address] [place] [address] Performed By: #### 5 7021-8 ####[facility] LABCLIA [id number] [place] [address] CNOVSPon 08-02-2023 CNOVSP Normal [facility] Cancer Ag19-9 SerPl-aCncon 0 08-02-2023 Cancer Ag 19-9 Qn 1844.0 [arb'U]/mL High <36.0 [facility] Comment on above: Order Comment: Speci men Type: BLOOD SPECIMENOrdering Facility: [facility] Address: [address] [place] [address] Result Comment: [facility] er antigen 19-9 test is used as an aid in monitoring response to treatment or recurrence in patients with established pancreatic, hepatobiliary, or gastrointestinal malignancies. Clinical correlation is required.The CA 19-9 Antigen test was performed using the [employer] DXI paramagnetic particle chemiluminescent immunoassay method. Results obtained with different assay methods or kits cannot be used interchangeably. Performed By: #### 2 4108-3 ####[facility] LABCLIA [id number] [place] [address] [place] Comprehensive metabolic 2000 panelon 08-02-2023 Albumin [Mass/Vol] 3.9 g/dL 3.9 - 4.9 g/dL [facility] ALP [Catalytic activity/Vol] 137 U/L High 38 - 113 U/L [facility] ALT [Catalytic activity/Vol] 12 U/L 10 - 54 U/L [facility] Anion gap [Moles/Vol] 10 mmol/L 9 - 18 mmol/L [facility] AST [Catalytic activity/Vol] 13 U/L Low 14 - 40 U/L [facility] Bilirubin [Mass/Vol] 1.0 mg/dL 0.2 - 1 .3 mg/dL [facility] Calcium [Mass/Vol] 10.4 mg/dL High 8.5 - 10. 2 mg/dL [facility] Chloride [Moles/Vol] 105 mmol/L 97 - 10 5 mmol/L [facility] CO2 [Moles/Vol] 24 mmol/L 22 - 30 mmol/L [facility] Creatinine [Mass/Vol] 0.86 mg/dL 0.73 - 1.22 mg/dL [facility] Estimated Glomerular Filtration Rate 92 mL/min/1.73m >=60 mL/min/1.73 m [facility] Glucose [Mass/Vol] 149 mg/dL High 74 - 99 mg/dL [facility] Potassium [Moles/Vol] 4.0 mmol/L 3.7 - 5.1 mmol/L [facility] Protein [Mass/Vol] 6.5 g/dL 6.3 - 8.0 g/dL [facility] Sodium [Moles/Vol] 139 mmol/L 136 - 144 mmol/L [facility] Urea nitrogen [Mass/Vol] 20 mg/dL 9 - 24 mg/dL [facility] Albumin [Mass/Vol] 3.9 g/dL Normal 3.9-4.9 [facility] Comment on above: Order Comment: Speci men Type: BLOOD SPECIMENOrdering Facility: [facility] Address: [address] [place] [address] Performed By: #### 2 4323-8 ####[facility] LABCLIA [id number] [place] [address] ALP [Catalytic activity/Vol] 137 U/L High 38-113 [facility] Comment on above: Order Comment: Speci men Type: BLOOD SPECIMENOrdering Facility: [facility] Address: [address] [place] [address] Performed By: #### 2 4323-8 ####[facility] LABCLIA [id number] [place] [address] ALT [Catalytic activity/Vol] 12 U/L Normal 10-54 [facility] Comment on above: Order Comment: Speci men Type: BLOOD SPECIMENOrdering Facility: [facility] Address: [address] [place] [address] Performed By: #### 2 4323-8 ####[facility] LABIA [id number] [place] [address] Anion gap [Moles/Vol] 10 mmol/L Normal 9-18 [facility] Comment on above: Order Comment: Speci men Type: BLOOD SPECIMENOrdering Facility: [facility] Address: [address] [place] [address] Performed By: #### 2 4323-8 ####[facility] LABCLIA [id number] [place] [address] AST [Catalytic activity/Vol] 13 U/L Low 14-40 [facility] Comment on above: Order Comment: Speci men Type: BLOOD SPECIMENOrdering Facility: [facility] Address: [address] [place] [address] Performed By: #### 2 4323-8 ####[facility] LABCLIA [id number] [place] [address] Bilirubin [Mass/Vol] 1.0 mg/dL Normal 0.2-1.3 [facility] Comment on above: Order Comment: Speci men Type: BLOOD SPECIMENOrdering Facility: [facility] Address: [address] [place] [address] Performed By: #### 2 4323-8 ####[facility] LABCLIA [id number] [place] [address] Calcium [Mass/Vol] 10.4 mg/dL High 8.5-10.2 [facility] Comment on above: Order Comment: Speci men Type: BLOOD SPECIMENOrdering Facility: [facility] Address: [address] [place] [address] Performed By: #### 2 4323-8 ####[facility] LABCLIA [id number] [place] [address] Chloride [Moles/Vol] 105 mmol/L Normal 97-105 [facility] Comment on above: Order Comment: Speci men Type: BLOOD SPECIMENOrdering Facility: [facility] Address: [address] [place], [place] [address] Performed By: #### 2 4323-8 ####[facility] LABCLIA [id number] [place] [address] CO2 [Moles/Vol] 24 mmol/L Normal 22-30 [facility] Comment on above: Order Comment: Speci men Type: BLOOD SPECIMENOrdering Facility: [facility] Address: [address] [place] [address] Performed By: #### 2 4323-8 ####[facility] LABCLIA [id number] [place] [address] Creatinine [Mass/Vol] 0.86 mg/dL Normal 0.73-1.22 [facility] Comment on above: Order Comment: Speci men Type: BLOOD SPECIMENOrdering Facility: [facility] Address: [address] [place] [address] Performed By: #### 2 4323-8 ####[facility] LABCLIA [id number] [place] [address] Creatinine and Glomerular filtration rate.predicted panel (S/P/Bld) 92 mL/min/1.73m??? Normal >=60 [facility] Comment on above: Order Comment: Rajanii men Type: BLOOD SPECIMENOrdering Facility: [facility] Address: [address] [place] [address] Result Comment: Kathy mated Glomerular Filtration Rate [...] actual GFR. Performed By: #### 2 4323-8 ####[facility] LABCLIA [id number] [place] [address] Glucose [Mass/Vol] 149 mg/dL High 74-99 [facility] Comment on above: Order Comment: Noemí hoff Type: BLOOD SPECIMENOrdering Facility: [facility] Address: [address] [place], [place] [address] Result Comment: The [place] Diabetes Association (ADA) provides guidance for cutoff [...] Standards of Medical Care in Diabetes 2016, [place] Diabetes [employer]. Diabetes Care. 2016.39(Suppl 1). Performed By: #### 2 4323-8 ####[facility] LABCLIA [id number] [place] [address] Potassium [Moles/Vol] 4.0 mmol/L Normal 3.7-5.1 [facility] Comment on above: Order Comment: Speci men Type: BLOOD SPECIMENOrdering Facility: [facility] Address: [address] [place] [address] Performed By: #### 2 4323-8 ####[facility] LABCLIA [id number] [place] [address] Protein [Mass/Vol] 6.5 g/dL Normal 6.3-8.0 [facility] Comment on above: Order Comment: Speci men Type: BLOOD SPECIMENOrdering Facility: [facility] Address: [address] [place] [address] Performed By: #### 2 4323-8 ####[facility] LABCLIA [id number] [place] [address] Sodium [Moles/Vol] 139 mmol/L Normal 136-144 [facility] Comment on above: Order Comment: Speci men Type: BLOOD SPECIMENOrdering Facility: [facility] Address: [address] [place] [address] Performed By: #### 2 4323-8 ####[facility] LABCLIA [id number] [place] [address] Urea nitrogen [Mass/Vol] 20 mg/dL Normal 9-24 [facility] Comment on above: Order Comment: Speci men Type: BLOOD SPECIMENOrdering Facility: [facility] Address: [address] [place] [address] Performed By: #### 2 4323-8 ####[facility] LABCLIA [id number] [place] [address] CBC W Auto Differential pane l (Bld)on 07-19-2023 Basophils (Bld) [#/Vol] 0.04 10*3/uL <0.11 k/uL [facility] Basophils/100 WBC (Bld) 0.7 % [facility] Differential cell count method Nom (Bld) Auto [facility] Eosinophils (Bld) [#/Vol] 0.09 10*3/uL <0.46 k/uL [facility] Eosinophils/100 WBC (Bld) 1.5 % [facility] Erythrocyte distribution width (RBC) [Ratio] 17.9 % High 11.5 - 15.0 % [facility] Hematocrit (Bld) [Volume fraction] 32.0 % Low 39.0 - 51.0 % [facility] Hemoglobin (Bld) [Mass/Vol] 10.5 g/dL Low 13.0 - 17.0 g/dL [facility] Immature granulocytes (Bld) [#/Vol] 0.03 10*3/uL <0.10 k/uL [facility] Immature granulocytes/100 WBC (Bld) 0.5 % [facility] Lymphocytes (Bld) [#/Vol] 1.44 10*3/uL 1.00 - 4.00 k/uL [facility] Lymphocytes/100 WBC (Bld) 24.2 % [facility] MCH (RBC) [Entitic mass] 33.9 pg 26.0 - 34.0 pg [facility] MCHC (RBC) [Mass/Vol] 32.8 g/dL 30.5 - 36.0 g/dL [facility] MCV (RBC) [Entitic vol] 103.2 fL High 80.0 - 100.0 fL [facility] Monocytes (Bld) [#/Vol] 0.46 10*3/uL <0.87 k/uL [facility] Monocytes/100 WBC (Bld) 7.7 % [facility] Neutrophils (Bld) [#/Vol] 3.90 10*3/uL 1.45 - 7.50 k/uL [facility] Neutrophils/100 WBC (Bld) 65.4 % [facility] Nucleated RBC (Bld) [#/Vol] <0.01 k/uL [facility] Nucleated RBC/100 WBC (Bld) [Ratio] 0.0 /100 WBC [facility] Platelet mean volume (Bld) [Entitic vol] 9.5 fL 9.0 - 12.7 fL [facility] Platelets (Bld) [#/Vol] 231 10*3/uL 150 - 400 k/uL [facility] RBC (Bld) [#/Vol] 3.10 10*6/uL Low 4.20 - 6.0 0 m/uL [facility] WBC (Bld) [#/Vol] 5.96 10*3/uL 3.70 - 11.00 k/uL [facility] Basophils (Bld) [#/Vol] 0.04 10*3/uL Normal <0.11 [facility] Comment on above: Order Comment: Speci men Type: BLOOD SPECIMENOrdering Facility: [facility] Address: [address] [place] [address] Performed By: #### 5 7021-8 ####[facility] LABCLIA [id number] [place] [address] Basophils/100 WBC (Bld) 0.7 % Normal [facility] Comment on above: Order Comment: Speci men Type: BLOOD SPECIMENOrdering Facility: [facility] Address: [address] [place] [address] Performed By: #### 5 7021-8 ####[facility] LABCLIA [id number] [place] [address] Differential cell count method Nom (Bld) Auto Normal [facility] Comment on above: Order Comment: Speci men Type: BLOOD SPECIMENOrdering Facility: [facility] Address: [address] [place] [address] Performed By: #### 5 7021-8 ####[facility] LABCLIA [id number] [place] [address] Eosinophils (Bld) [#/Vol] 0.09 10*3/uL Normal <0.46 [facility] Comment on above: Order Comment: Speci men Type: BLOOD SPECIMENOrdering Facility: [facility] Address: [address] [place] [address] Performed By: #### 5 7021-8 ####[facility] LABCLIA [id number] [place] [address] Eosinophils/100 WBC (Bld) 1.5 % Normal [facility] Comment on above: Order Comment: Speci men Type: BLOOD SPECIMENOrdering Facility: [facility] Address: [address] [place] [address] Performed By: #### 5 7021-8 ####[facility] LABCLIA [id number] [place] [address] Erythrocyte distribution width (RBC) [Ratio] 17.9 % High 11.5-15.0 [facility] Comment on above: Order Comment: Speci men Type: BLOOD SPECIMENOrdering Facility: [facility] Address: [address] [place] [address] Performed By: #### 5 7021-8 ####[facility] LABCLIA [id number] [place] [address] Hematocrit (Bld) [Volume fraction] 32.0 % Low 39.0-51.0 [facility] Comment on above: Order Comment: Speci men Type: BLOOD SPECIMENOrdering Facility: [facility] Address: [address] [place] [address] Performed By: #### 5 7021-8 ####[facility] LABCLIA [id number] [place] [address] Hemoglobin (Bld) [Mass/Vol] 10.5 g/dL Low 13.0-17.0 [facility] Comment on above: Order Comment: Speci men Type: BLOOD SPECIMENOrdering Facility: [facility] Address: [address] [place] [address] Performed By: #### 5 7021-8 ####[facility] LABCLIA [id number] [place] [address] Immature granulocytes (Bld) [#/Vol] 0.03 10*3/uL Normal <0.10 [facility] Comment on above: Order Comment: Speci men Type: BLOOD SPECIMENOrdering Facility: [facility] Address: [address] [place] [address] Performed By: #### 5 7021-8 ####[facility] LABCLIA [id number] [place] [address] Immature granulocytes/100 WBC (Bld) 0.5 % Normal [facility] Comment on above: Order Comment: Speci men Type: BLOOD SPECIMENOrdering Facility: [facility] Address: [address] [place] [address] Performed By: #### 5 7021-8 ####[facility] LABCLIA [id number] [place] [address] Lymphocytes (Bld) [#/Vol] 1.44 10*3/uL Normal 1.00-4.00 [facility] Comment on above: Order Comment: Speci men Type: BLOOD SPECIMENOrdering Facility: [facility] Address: [address] [place] [address] Performed By: #### 5 7021-8 ####[facility] LABCLIA [id number] [place] [address] Lymphocytes/100 WBC (Bld) 24.2 % Normal [facility] Comment on above: Order Comment: Speci men Type: BLOOD SPECIMENOrdering Facility: [facility] Address: [address] [place] [address] Performed By: #### 5 7021-8 ####[facility] LABCLIA [id number] [place] [address] MCH (RBC) [Entitic mass] 33.9 pg Normal 26.0-34.0 [facility] Comment on above: Order Comment: Speci men Type: BLOOD SPECIMENOrdering Facility: [facility] Address: [address] [place] [address] Performed By: #### 5 7021-8 ####[facility] LABCLIA [id number] [place] [address] MCHC (RBC) [Mass/Vol] 32.8 g/dL Normal 30.5-36.0 [facility] Comment on above: Order Comment: Speci men Type: BLOOD SPECIMENOrdering Facility: [facility] Address: [address] [place] [address] Performed By: #### 5 7021-8 ####[facility] LABCLIA [id number] [place] [address] MCV (RBC) [Entitic vol] 103.2 fL High 80.0-100.0 [facility] Comment on above: Order Comment: Speci men Type: BLOOD SPECIMENOrdering Facility: [facility] Address: [address] [place] [address] Performed By: #### 5 7021-8 ####[facility] LABCLIA [id number] [place] [address] Monocytes (Bld) [#/Vol] 0.46 10*3/uL Normal <0.87 [facility] Comment on above: Order Comment: Speci men Type: BLOOD SPECIMENOrdering Facility: [facility] Address: [address] [place] [address] Performed By: #### 5 7021-8 ####[facility] LABCLIA [id number] [place] [address] Monocytes/100 WBC (Bld) 7.7 % Normal [facility] Comment on above: Order Comment: Speci men Type: BLOOD SPECIMENOrdering Facility: [facility] Address: [address] [place] [address] Performed By: #### 5 7021-8 ####[facility] LABCLIA [id number] [place] [address] Neutrophils (Bld) [#/Vol] 3.90 10*3/uL Normal 1.45-7.50 [facility] Comment on above: Order Comment: Speci men Type: BLOOD SPECIMENOrdering Facility: [facility] Address: [address] [place] [address] Performed By: #### 5 7021-8 ####[facility] LABCLIA [id number] [place] [address] Neutrophils/100 WBC (Bld) 65.4 % Normal [facility] Comment on above: Order Comment: Speci men Type: BLOOD SPECIMENOrdering Facility: [facility] Address: [address] [place] [address] Performed By: #### 5 7021-8 ####[facility] LABCLIA [id number] [place] [address] Nucleated RBC (Bld) [#/Vol] 10*3/uL Normal <0.01 [facility] Comment on above: Order Comment: Speci men Type: BLOOD SPECIMENOrdering Facility: [facility] Address: [address] [place] [address] Performed By: #### 5 7021-8 ####[facility] LABCLIA [id number] [place] [address] Nucleated RBC/100 WBC (Bld) [Ratio] 0.0 /100 WBC Normal [facility] Comment on above: Order Comment: Speci men Type: BLOOD SPECIMENOrdering Facility: [facility] Address: [address] [place] [address] Performed By: #### 5 7021-8 ####[facility] LABCLIA [id number] [place] [address] Platelet mean volume (Bld) [Entitic vol] 9.5 fL Normal 9.0-12.7 [facility] Comment on above: Order Comment: Speci men Type: BLOOD SPECIMENOrdering Facility: [facility] Address: [address] [place], [place] [address] Performed By: #### 5 7021-8 ####[facility] LABCLIA [id number] [place] [address] Platelets (Bld) [#/Vol] 231 10*3/uL Normal 150-400 [facility] Comment on above: Order Comment: Speci men Type: BLOOD SPECIMENOrdering Facility: [facility] Address: [address] [place] [address] Performed By: #### 5 7021-8 ####[facility] LABCLIA [id number] [place] [address] RBC (Bld) [#/Vol] 3.10 10*6/uL Low 4.20-6.00 [facility] Comment on above: Order Comment: Speci men Type: BLOOD SPECIMENOrdering Facility: [facility] Address: [address] [place] [address] Performed By: #### 5 7021-8 ####[facility] LABIA [id number] [place] [address] WBC (Bld) [#/Vol] 5.96 10*3/uL Normal 3.70-11.00 [facility] Comment on above: Order Comment: Speci men Type: BLOOD SPECIMENOrdering Facility: [facility] Address: [address] [place] [address] Performed By: #### 5 7021-8 ####[facility] LABIA [id number] [place] [address] CNCNPATEDon 07-19-2023 CNCNPATED Normal [facility] CNOVSPon 07-19-2023 CNOVSP Normal [facility] Comprehensive metabolic 2000 panelon 07-19-2023 Albumin [Mass/Vol] 3.8 g/dL Low 3.9 - 4.9 g/dL [facility] ALP [Catalytic activity/Vol] 136 U/L High 38 - 113 U/L [facility] ALT [Catalytic activity/Vol] 29 U/L 10 - 54 U/L [facility] Anion gap [Moles/Vol] 11 mmol/L 9 - 18 mmol/L [facility] AST [Catalytic activity/Vol] 24 U/L 14 - 40 U/L [facility] Bilirubin [Mass/Vol] 1.2 mg/dL 0.2 - 1 .3 mg/dL [facility] Calcium [Mass/Vol] 10.7 mg/dL High 8.5 - 10. 2 mg/dL [facility] Chloride [Moles/Vol] 106 mmol/L High 97 - 10 5 mmol/L [facility] CO2 [Moles/Vol] 22 mmol/L 22 - 30 mmol/L [facility] Creatinine [Mass/Vol] 0.83 mg/dL 0.73 - 1.22 mg/dL [facility] Estimated Glomerular Filtration Rate 93 mL/min/1.73m >=60 mL/min/1.73 m [facility] Glucose [Mass/Vol] 152 mg/dL High 74 - 99 mg/dL [facility] Potassium [Moles/Vol] 3.7 mmol/L 3.7 - 5.1 mmol/L [facility] Protein [Mass/Vol] 6.3 g/dL 6.3 - 8.0 g/dL [facility] Sodium [Moles/Vol] 139 mmol/L 136 - 144 mmol/L [facility] Urea nitrogen [Mass/Vol] 14 mg/dL 9 - 24 mg/dL [facility] Albumin [Mass/Vol] 3.8 g/dL Low 3.9-4.9 [facility] Comment on above: Order Comment: Speci men Type: BLOOD SPECIMENOrdering Facility: [facility] Address: [address] [place] [address] Performed By: #### 2 4323-8 ####[facility] LABCLIA [id number] [place] [address] ALP [Catalytic activity/Vol] 136 U/L High 38-113 [facility] Comment on above: Order Comment: Speci men Type: BLOOD SPECIMENOrdering Facility: [facility] Address: [address] [place] [address] Performed By: #### 2 4323-8 ####[facility] LABCLIA [id number] [place] [address] ALT [Catalytic activity/Vol] 29 U/L Normal 10-54 [facility] Comment on above: Order Comment: Speci men Type: BLOOD SPECIMENOrdering Facility: [facility] Address: [address] [place] [address] Performed By: #### 2 4323-8 ####[facility] LABCLIA [id number] [place] [address] Anion gap [Moles/Vol] 11 mmol/L Normal 9-18 [facility] Comment on above: Order Comment: Speci men Type: BLOOD SPECIMENOrdering Facility: [facility] Address: [address] [place] [address] Performed By: #### 2 4323-8 ####[facility] LABCLIA [id number] [place] [address] AST [Catalytic activity/Vol] 24 U/L Normal 14-40 [facility] Comment on above: Order Comment: Speci men Type: BLOOD SPECIMENOrdering Facility: [facility] Address: [address] [place] [address] Performed By: #### 2 4323-8 ####[facility] LABCLIA [id number] [place] [address] Bilirubin [Mass/Vol] 1.2 mg/dL Normal 0.2-1.3 [facility] Comment on above: Order Comment: Speci men Type: BLOOD SPECIMENOrdering Facility: [facility] Address: [address] [place] [address] Performed By: #### 2 4323-8 ####[facility] LABCLIA [id number] [place] [address] Calcium [Mass/Vol] 10.7 mg/dL High 8.5-10.2 [facility] Comment on above: Order Comment: Speci men Type: BLOOD SPECIMENOrdering Facility: [facility] Address: [address] [place] [address] Performed By: #### 2 4323-8 ####[facility] LABCLIA [id number] [place] [address] Chloride [Moles/Vol] 106 mmol/L High 97-105 [facility] Comment on above: Order Comment: Speci men Type: BLOOD SPECIMENOrdering Facility: [facility] Address: [address] [place] [address] Performed By: #### 2 4323-8 ####[facility] LABCLIA [id number] [place] [address] CO2 [Moles/Vol] 22 mmol/L Normal 22-30 [facility] Comment on above: Order Comment: Speci men Type: BLOOD SPECIMENOrdering Facility: [facility] Address: [address] [place] [address] Performed By: #### 2 4323-8 ####[facility] LABCLIA [id number] [place] [address] Creatinine [Mass/Vol] 0.83 mg/dL Normal 0.73-1.22 [facility] Comment on above: Order Comment: Speci men Type: BLOOD SPECIMENOrdering Facility: [facility] Address: [address] [place] [address] Performed By: #### 2 4323-8 ####[facility] LABCLIA [id number] [place] [address] Creatinine and Glomerular filtration rate.predicted panel (S/P/Bld) 93 mL/min/1.73m??? Normal >=60 [facility] Comment on above: Order Comment: Speci men Type: BLOOD SPECIMENOrdering Facility: [facility] Address: [address] [place] [address] Result Comment: Kathy mated Glomerular Filtration Rate [...] actual GFR. Performed By: #### 2 4323-8 ####[facility] LABCLIA [id number] [place] [address] Glucose [Mass/Vol] 152 mg/dL High 74-99 [facility] Comment on above: Order Comment: Noemí hoff Type: BLOOD SPECIMENOrdering Facility: [facility] Address: [address] [place] [address] Result Comment: The [place] [employer] (ADA) provides guidance for cutoff [...] Standards of Medical Care in Diabetes 2016, [place] [employer]. Diabetes Care. 2016.39(Suppl 1). Performed By: #### 2 4323-8 ####[facility] LABCLIA [id number] [place] [address] Potassium [Moles/Vol] 3.7 mmol/L Normal 3.7-5.1 [facility] Comment on above: Order Comment: Noemí hoff Type: BLOOD SPECIMENOrdering Facility: [facility] Address: [address] [place] [address] Performed By: #### 2 4323-8 ####[facility] LABCLIA [id number] [place] [address] Protein [Mass/Vol] 6.3 g/dL Normal 6.3-8.0 [facility] Comment on above: Order Comment: Noemí hoff Type: BLOOD SPECIMENOrdering Facility: [facility] Address: [address] [place] [address] Performed By: #### 2 4323-8 ####[facility] LABCLIA [id number] [place] [id number] Sodium [Moles/Vol] 139 mmol/L Normal 136-144 [facility] Comment on above: Order Comment: Speci men Type: BLOOD SPECIMENOrdering Facility: [facility] Address: [address] [place] [address] Performed By: #### 2 4323-8 ####[facility] LABCLIA [id number] [place] [address] Urea nitrogen [Mass/Vol] 14 mg/dL Normal 9-24 [facility] Comment on above: Order Comment: Speci men Type: BLOOD SPECIMENOrdering Facility: [facility] Address: [address] [place] [address] Performed By: #### 2 4323-8 ####[facility] LABCLIA [id number] [place] [id number] CBC W Auto Differential pane l (Bld)on 07-05-2023 Basophils (Bld) [#/Vol] 0.04 10*3/uL <0.11 k/uL [facility] Differential cell count method Nom (Bld) Auto [facility] Eosinophils (Bld) [#/Vol] 0.12 10*3/uL <0.46 k/uL [facility] Immature granulocytes (Bld) [#/Vol] <0.10 k/uL [facility] Immature granulocytes/100 WBC (Bld) 0.3 % [facility] Lymphocytes (Bld) [#/Vol] 1.27 10*3/uL 1.00 - 4.00 k/uL [facility] Monocytes (Bld) [#/Vol] 0.41 10*3/uL <0.87 k/uL [facility] Neutrophils (Bld) [#/Vol] 4.04 10*3/uL 1.45 - 7.50 k/uL [facility] Nucleated RBC (Bld) [#/Vol] <0.01 k/uL [facility] Nucleated RBC/100 WBC (Bld) [Ratio] 0.0 /100 WBC [facility] Platelet mean volume (Bld) [Entitic vol] 9.4 fL 9.0 - 12.7 fL [facility] Platelets (Bld) [#/Vol] 211 10*3/uL 150 - 400 k/uL [facility] WBC (Bld) [#/Vol] 5.90 10*3/uL 3.70 - 11.00 k/uL [facility] Basophils (Bld) [#/Vol] 0.04 10*3/uL Normal <0.11 [facility] Comment on above: Order Comment: Speci men Type: BLOOD SPECIMENOrdering Facility: [facility] Address: [address] [place] [address] Performed By: #### 5 7021-8 ####[facility] LABCLIA [id number] [place] [address] Basophils/100 WBC (Bld) 0.7 % Normal [facility] Comment on above: Order Comment: Speci men Type: BLOOD SPECIMENOrdering Facility: [facility] Address: [address] [place] [address] Performed By: #### 5 7021-8 ####[facility] LABCLIA [id number] [place] [address] Differential cell count method Nom (Bld) Auto Normal [facility] Comment on above: Order Comment: Speci men Type: BLOOD SPECIMENOrdering Facility: [facility] Address: [address] [place] [address] Performed By: #### 5 7021-8 ####[facility] LABCLIA [id number] [place] [address] Eosinophils (Bld) [#/Vol] 0.12 10*3/uL Normal <0.46 [facility] Comment on above: Order Comment: Speci men Type: BLOOD SPECIMENOrdering Facility: [facility] Address: [address] [place] [address] Performed By: #### 5 7021-8 ####[facility] LABCLIA [id number] [place] [address] Eosinophils/100 WBC (Bld) 2.0 % Normal [facility] Comment on above: Order Comment: Speci men Type: BLOOD SPECIMENOrdering Facility: [facility] Address: [address] [place] [address] Performed By: #### 5 7021-8 ####[facility] LABCLIA [id number] [place] [address] Erythrocyte distribution width (RBC) [Ratio] 17.7 % High 11.5-15.0 [facility] Comment on above: Order Comment: Speci men Type: BLOOD SPECIMENOrdering Facility: [facility] Address: [address] [place] [address] Performed By: #### 5 7021-8 ####[facility] LABCLIA [id number] [place] [address] Hematocrit (Bld) [Volume fraction] 32.0 % Low 39.0-51.0 [facility] Comment on above: Order Comment: Speci men Type: BLOOD SPECIMENOrdering Facility: [facility] Address: [address] [place] [address] Performed By: #### 5 7021-8 ####[facility] LABCLIA [id number] [place] [address] Hemoglobin (Bld) [Mass/Vol] 10.6 g/dL Low 13.0-17.0 [facility] Comment on above: Order Comment: Speci men Type: BLOOD SPECIMENOrdering Facility: [facility] Address: [address] [place] [address] Performed By: #### 5 7021-8 ####[facility] LABCLIA [id number] [place] [address] Immature granulocytes (Bld) [#/Vol] 10*3/uL Normal <0.10 [facility] Comment on above: Order Comment: Speci men Type: BLOOD SPECIMENOrdering Facility: [facility] Address: [address] [place] [address] Performed By: #### 5 7021-8 ####[facility] LABCLIA [id number] [place] [address] Immature granulocytes/100 WBC (Bld) 0.3 % Normal [facility] Comment on above: Order Comment: Speci men Type: BLOOD SPECIMENOrdering Facility: [facility] Address: [address] [place] [address] Performed By: #### 5 7021-8 ####[facility] LABCLIA [id number] [place] [address] Lymphocytes (Bld) [#/Vol] 1.27 10*3/uL Normal 1.00-4.00 [facility] Comment on above: Order Comment: Speci men Type: BLOOD SPECIMENOrdering Facility: [facility] Address: [address] [place] [address] Performed By: #### 5 7021-8 ####[facility] LABCLIA [id number] [place] [address] Lymphocytes/100 WBC (Bld) 21.5 % Normal [facility] Comment on above: Order Comment: Speci men Type: BLOOD SPECIMENOrdering Facility: [facility] Address: [address] [place] [address] Performed By: #### 5 7021-8 ####[facility] LABCLIA [id number] [place] [address] MCH (RBC) [Entitic mass] 33.9 pg Normal 26.0-34.0 [facility] Comment on above: Order Comment: Speci men Type: BLOOD SPECIMENOrdering Facility: [facility] Address: [address] [place] [address] Performed By: #### 5 7021-8 ####[facility] LABCLIA [id number] [place] [address] MCHC (RBC) [Mass/Vol] 33.1 g/dL Normal 30.5-36.0 [facility] Comment on above: Order Comment: Speci men Type: BLOOD SPECIMENOrdering Facility: [facility] Address: [address] [place] [address] Performed By: #### 5 7021-8 ####[facility] LABCLIA [id number] [place] [address] MCV (RBC) [Entitic vol] 102.2 fL High 80.0-100.0 [facility] Comment on above: Order Comment: Speci men Type: BLOOD SPECIMENOrdering Facility: [facility] Address: [address] [place] [address] Performed By: #### 5 7021-8 ####[facility] LABCLIA [id number] [place] [address] Monocytes (Bld) [#/Vol] 0.41 10*3/uL Normal <0.87 [facility] Comment on above: Order Comment: Speci men Type: BLOOD SPECIMENOrdering Facility: [facility] Address: [address] [place] [address] Performed By: #### 5 7021-8 ####[facility] LABCLIA [id number] [place] [address] Monocytes/100 WBC (Bld) 6.9 % Normal [facility] Comment on above: Order Comment: Speci men Type: BLOOD SPECIMENOrdering Facility: [facility] Address: [address] [place] [address] Performed By: #### 5 7021-8 ####[facility] LABCLIA [id number] [place] [address] Neutrophils (Bld) [#/Vol] 4.04 10*3/uL Normal 1.45-7.50 [facility] Comment on above: Order Comment: Speci men Type: BLOOD SPECIMENOrdering Facility: [facility] Address: [address] [place] [address] Performed By: #### 5 7021-8 ####[facility] LABCLIA [id number] [place] [address] Neutrophils/100 WBC (Bld) 68.6 % Normal [facility] Comment on above: Order Comment: Speci men Type: BLOOD SPECIMENOrdering Facility: [facility] Address: [address] [place], [place] [address] Performed By: #### 5 7021-8 ####[facility] LABCLIA [id number] [place] [address] Nucleated RBC (Bld) [#/Vol] 10*3/uL Normal <0.01 [facility] Comment on above: Order Comment: Speci men Type: BLOOD SPECIMENOrdering Facility: [facility] Address: [address] [place] [address] Performed By: #### 5 7021-8 ####[facility] LABCLIA [id number] [place] [address] Nucleated RBC/100 WBC (Bld) [Ratio] 0.0 /100 WBC Normal [facility] Comment on above: Order Comment: Speci men Type: BLOOD SPECIMENOrdering Facility: [facility] Address: [address] [place] [address] Performed By: #### 5 7021-8 ####[facility] LABCLIA [id number] [place] [address] Platelet mean volume (Bld) [Entitic vol] 9.4 fL Normal 9.0-12.7 [facility] Comment on above: Order Comment: Speci men Type: BLOOD SPECIMENOrdering Facility: [facility] Address: [address] [place] [address] Performed By: #### 5 7021-8 ####[facility] LABIA [id number] [place] [address] Platelets (Bld) [#/Vol] 211 10*3/uL Normal 150-400 [facility] Comment on above: Order Comment: Speci men Type: BLOOD SPECIMENOrdering Facility: [facility] Address: [address] [place], [place] [address] Performed By: #### 5 7021-8 ####[facility] LABCLIA [id number] [place] [address] RBC (Bld) [#/Vol] 3.13 10*6/uL Low 4.20-6.00 [facility] Comment on above: Order Comment: Speci men Type: BLOOD SPECIMENOrdering Facility: [facility] Address: [address] [place] [address] Performed By: #### 5 7021-8 ####[facility] LABIA [id number] [place] [address] WBC (Bld) [#/Vol] 5.90 10*3/uL Normal 3.70-11.00 [facility] Comment on above: Order Comment: Speci men Type: BLOOD SPECIMENOrdering Facility: [facility] Address: [address] [place] [address] Performed By: #### 5 7021-8 ####[facility] LABIA [id number] [place] [address] [facility] CBC W AUTO DIFF BLDon [facility] BASOPHILS # BLD AUTO 0.04 [facility] DIFFERENTIAL METHOD BLD Auto [facility] EOSINOPHIL # BLD AUTO 0.12 [facility] LYMPHOCYTES # BLD AUTO 1.27 [facility] MONOCYTES # BLD AUTO 0.41 [facility] NEUTROPHILS # BLD AUTO 4.04 [facility] NRBC # BLD AUTO <0.01 [facility] NRBC/100 WBC BLD-RTO 0.0 /100 WBC [facility] PLATELET # BLD AUTO 211 [facility] PMV BLD AUTO 9.4 fL 9.0 - 12.7 fL [facility] WBC # BLD AUTO 5.90 [facility] IMM GRANULOCYTES # BLD AUTO <0.03 [facility] IMM GRANULOCYTES/LEUK NFR BLD AUTO 0.3 % [facility] Interpretation and review of laboratory results Abnormal [facility] Specimen Type: BLOOD SPECIMEN Ordering Facility: [facility] Address: [address] [place] [address] Original Ordering Provider: GRACE NEWBY [facility] CNOVSPon 07-05-2023 CNOVSP Normal [facility] Cancer Ag19-9 SerPl-aCncon 0 07-05-2023 Cancer Ag 19-9 Qn 1918.0 [arb'U]/mL High <36.0 [facility] Comment on above: Order Comment: Speci men Type: BLOOD SPECIMENOrdering Facility: [facility] Address: [address] [place] [address] Result Comment: [facility] er antigen 19-9 test is used as an aid in monitoring response to treatment or recurrence in patients with established pancreatic, hepatobiliary, or gastrointestinal malignancies. Clinical correlation is required.The CA 19-9 Antigen test was performed using the [employer] ([employer] Unicel DXI paramagnetic particle chemiluminescent immunoassay method. Results obtained with different assay methods or kits cannot be used interchangeably. Performed By: #### 2 4108-3 ####[facility] LABCLIA [id number] [place] [address] [place] Comprehensive metabolic 2000 panelon 07-05-2023 Albumin [Mass/Vol] 3.8 g/dL Low 3.9 - 4.9 g/dL [facility] ALP [Catalytic activity/Vol] 128 U/L High 38 - 113 U/L [facility] ALT [Catalytic activity/Vol] 24 U/L 10 - 54 U/L [facility] Anion gap [Moles/Vol] 10 mmol/L 9 - 18 mmol/L [facility] AST [Catalytic activity/Vol] 14 U/L 14 - 40 U/L [facility] Bilirubin [Mass/Vol] 1.3 mg/dL 0.2 - 1 .3 mg/dL [facility] Calcium [Mass/Vol] 10.3 mg/dL High 8.5 - 10. 2 mg/dL [facility] Chloride [Moles/Vol] 106 mmol/L High 97 - 10 5 mmol/L [facility] CO2 [Moles/Vol] 23 mmol/L 22 - 30 mmol/L [facility] Creatinine [Mass/Vol] 0.85 mg/dL 0.73 - 1.22 mg/dL [facility] Estimated Glomerular Filtration Rate 92 mL/min/1.73m >=60 mL/min/1.73 m [facility] Glucose [Mass/Vol] 164 mg/dL High 74 - 99 mg/dL [facility] Potassium [Moles/Vol] 3.6 mmol/L Low 3.7 - 5.1 mmol/L [facility] Protein [Mass/Vol] 6.3 g/dL 6.3 - 8.0 g/dL [facility] Sodium [Moles/Vol] 139 mmol/L 136 - 144 mmol/L [facility] Urea nitrogen [Mass/Vol] 19 mg/dL 9 - 24 mg/dL [facility] Albumin [Mass/Vol] 3.8 g/dL Low 3.9-4.9 [facility] Comment on above: Order Comment: Speci men Type: BLOOD SPECIMENOrdering Facility: [facility] Address: [address] [place] [address] Performed By: #### 2 4323-8 ####[facility] LABCLIA [id number] [place] [address] ALP [Catalytic activity/Vol] 128 U/L High 38-113 [facility] Comment on above: Order Comment: Speci men Type: BLOOD SPECIMENOrdering Facility: [facility] Address: [address] [place] [address] Performed By: #### 2 4323-8 ####[facility] LABCLIA [id number] [place] [address] ALT [Catalytic activity/Vol] 24 U/L Normal 10-54 [facility] Comment on above: Order Comment: Speci men Type: BLOOD SPECIMENOrdering Facility: [facility] Address: [address] [place] [address] Performed By: #### 2 4323-8 ####[facility] LABCLIA [id number] [place] [address] Anion gap [Moles/Vol] 10 mmol/L Normal 9-18 [facility] Comment on above: Order Comment: Speci men Type: BLOOD SPECIMENOrdering Facility: [facility] Address: [address] [place] [address] Performed By: #### 2 4323-8 ####[facility] LABCLIA [id number] [place] [address] AST [Catalytic activity/Vol] 14 U/L Normal 14-40 [facility] Comment on above: Order Comment: Speci men Type: BLOOD SPECIMENOrdering Facility: [facility] Address: [address] [place] [address] Performed By: #### 2 4323-8 ####[facility] LABCLIA [id number] [place] [address] Bilirubin [Mass/Vol] 1.3 mg/dL Normal 0.2-1.3 [facility] Comment on above: Order Comment: Speci men Type: BLOOD SPECIMENOrdering Facility: [facility] Address: [address] [place] [address] Performed By: #### 2 4323-8 ####[facility] LABCLIA [id number] [place] [address] Calcium [Mass/Vol] 10.3 mg/dL High 8.5-10.2 [facility] Comment on above: Order Comment: Speci men Type: BLOOD SPECIMENOrdering Facility: [facility] Address: [address] [place] [address] Performed By: #### 2 4323-8 ####[facility] LABCLIA [id number] [place] [address] Chloride [Moles/Vol] 106 mmol/L High 97-105 [facility] Comment on above: Order Comment: Speci men Type: BLOOD SPECIMENOrdering Facility: [facility] Address: [address] [place] [address] Performed By: #### 2 4323-8 ####[facility] LABCLIA [id number] [place] [address] CO2 [Moles/Vol] 23 mmol/L Normal 22-30 [facility] Comment on above: Order Comment: Speci men Type: BLOOD SPECIMENOrdering Facility: [facility] Address: [address] [place] [address] Performed By: #### 2 4323-8 ####[facility] LABCLIA [id number] [place] [address] Creatinine [Mass/Vol] 0.85 mg/dL Normal 0.73-1.22 [facility] Comment on above: Order Comment: Speci men Type: BLOOD SPECIMENOrdering Facility: [facility] Address: [address] [place] [address] Performed By: #### 2 4323-8 ####[facility] LABCLIA [id number] [place] [address] Creatinine and Glomerular filtration rate.predicted panel (S/P/Bld) 92 mL/min/1.73m??? Normal >=60 [facility] Comment on above: Order Comment: Speci men Type: BLOOD SPECIMENOrdering Facility: [facility] Address: [address] [place] [address] Result Comment: Kathy mated Glomerular Filtration Rate [...] actual GFR. Performed By: #### 2 4323-8 ####[facility] LABCLIA [id number] [place] [address] Glucose [Mass/Vol] 164 mg/dL High 74-99 [facility] Comment on above: Order Comment: Speci men Type: BLOOD SPECIMENOrdering Facility: [facility] Address: [address] [place] [address] Result Comment: The [place] Diabetes Association (ADA) provides guidance for cutoff [...] Standards of Medical Care in Diabetes 2016, [place] [employer]. Diabetes Care. 2016.39(Suppl 1). Performed By: #### 2 4323-8 ####[facility] LABCLIA [id number] [place] [address] Potassium [Moles/Vol] 3.6 mmol/L Low 3.7-5.1 [facility] Comment on above: Order Comment: Speci men Type: BLOOD SPECIMENOrdering Facility: [facility] Address: [address] [place] [address] Performed By: #### 2 4323-8 ####[facility] LABCLIA [id number] [place] [address] Protein [Mass/Vol] 6.3 g/dL Normal 6.3-8.0 [facility] Comment on above: Order Comment: Speci men Type: BLOOD SPECIMENOrdering Facility: [facility] Address: [address] [place] [address] Performed By: #### 2 4323-8 ####[facility] LABCLIA [id number] [place] [address] Sodium [Moles/Vol] 139 mmol/L Normal 136-144 [facility] Comment on above: Order Comment: Speci men Type: BLOOD SPECIMENOrdering Facility: [facility] Address: [address] [place] [address] Performed By: #### 2 4323-8 ####[facility] LABCLIA [id number] [place] [address] Urea nitrogen [Mass/Vol] 19 mg/dL Normal 9-24 [facility] Comment on above: Order Comment: Speci men Type: BLOOD SPECIMENOrdering Facility: [facility] Address: [address] [place] [address] Performed By: #### 2 4323-8 ####ESEQUIEL ROSENBERGUSKY [facility] LABCLIA [id number] [place] [id number] Laboratory - Hematology and Cell countson 07-05-2023 Basophils/100 WBC (Bld) 0.7 % [facility] Eosinophils/100 WBC (Bld) 2.0 % [facility] Erythrocyte distribution width (RBC) [Ratio] 17.7 % High 11.5 - 15.0 % [facility] Hematocrit (Bld) [Volume fraction] 32.0 % Low 39.0 - 51.0 % [facility] Hemoglobin (Bld) [Mass/Vol] 10.6 g/dL Low 13.0 - 17.0 g/dL [facility] Lymphocytes/100 WBC (Bld) 21.5 % [facility] MCH (RBC) [Entitic mass] 33.9 pg 26.0 - 34.0 pg [facility] MCHC (RBC) [Mass/Vol] 33.1 g/dL 30.5 - 36.0 g/dL [facility] MCV (RBC) [Entitic vol] 102.2 fL High 80.0 - 100.0 fL [facility] Monocytes/100 WBC (Bld) 6.9 % [facility] Neutrophils/100 WBC (Bld) 68.6 % [facility] RBC (Bld) [#/Vol] 3.13 10*6/uL Low 4.20 - 6.0 0 m/uL [facility] CNPNon 06-23-2023 CNPN Normal [facility] CBC W Auto Differential pane l (Bld)on 06-21-2023 Basophils (Bld) [#/Vol] 0.03 10*3/uL Normal <0.11 [facility] Comment on above: Order Comment: Speci men Type: BLOOD SPECIMENOrdering Facility: [facility] Address: [address] [place] [address] Performed By: #### 5 7021-8 ####[facility] LABCLIA [id number] [place] [address] Basophils/100 WBC (Bld) 0.4 % Normal [facility] Comment on above: Order Comment: Speci men Type: BLOOD SPECIMENOrdering Facility: [facility] Address: [address] [place] [address] Performed By: #### 5 7021-8 ####[facility] LABCLIA [id number] [place] [address] Differential cell count method Nom (Bld) Auto Normal [facility] Comment on above: Order Comment: Speci men Type: BLOOD SPECIMENOrdering Facility: [facility] Address: [address] [place] [address] Performed By: #### 5 7021-8 ####[facility] LABCLIA [id number] [place] [address] Eosinophils (Bld) [#/Vol] 0.07 10*3/uL Normal <0.46 [facility] Comment on above: Order Comment: Speci men Type: BLOOD SPECIMENOrdering Facility: [facility] Address: [address] [place] [address] Performed By: #### 5 7021-8 ####[facility] LABCLIA [id number] [place] [address] Eosinophils/100 WBC (Bld) 0.9 % Normal [facility] Comment on above: Order Comment: Speci men Type: BLOOD SPECIMENOrdering Facility: [facility] Address: [address] [place] [address] Performed By: #### 5 7021-8 ####[facility] LABCLIA [id number] [place] [address] Erythrocyte distribution width (RBC) [Ratio] 16.7 % High 11.5-15.0 [facility] Comment on above: Order Comment: Speci men Type: BLOOD SPECIMENOrdering Facility: [facility] Address: [address] [place] [address] Performed By: #### 5 7021-8 ####[facility] LABCLIA [id number] [place] [address] Hematocrit (Bld) [Volume fraction] 29.9 % Low 39.0-51.0 [facility] Comment on above: Order Comment: Speci men Type: BLOOD SPECIMENOrdering Facility: [facility] Address: [address] [place] [address] Performed By: #### 5 7021-8 ####[facility] LABCLIA [id number] [place] [address] Hemoglobin (Bld) [Mass/Vol] 10.1 g/dL Low 13.0-17.0 [facility] Comment on above: Order Comment: Speci men Type: BLOOD SPECIMENOrdering Facility: [facility] Address: [address] [place] [address] Performed By: #### 5 7021-8 ####[facility] LABCLIA [id number] [place] [address] Immature granulocytes (Bld) [#/Vol] 0.03 10*3/uL Normal <0.10 [facility] Comment on above: Order Comment: Speci men Type: BLOOD SPECIMENOrdering Facility: [facility] Address: [address] [place] [address] Performed By: #### 5 7021-8 ####[facility] LABCLIA [id number] [place] [address] Immature granulocytes/100 WBC (Bld) 0.4 % Normal [facility] Comment on above: Order Comment: Speci men Type: BLOOD SPECIMENOrdering Facility: [facility] Address: [address] [place] [address] Performed By: #### 5 7021-8 ####[facility] LABCLIA [id number] [place] [address] Lymphocytes (Bld) [#/Vol] 1.48 10*3/uL Normal 1.00-4.00 [facility] Comment on above: Order Comment: Speci men Type: BLOOD SPECIMENOrdering Facility: [facility] Address: [address] [place] [address] Performed By: #### 5 7021-8 ####[facility] LABCLIA [id number] [place] [address] Lymphocytes/100 WBC (Bld) 20.0 % Normal [facility] Comment on above: Order Comment: Speci men Type: BLOOD SPECIMENOrdering Facility: [facility] Address: [address] [place] [address] Performed By: #### 5 7021-8 ####[facility] LABCLIA [id number] [place] [address] MCH (RBC) [Entitic mass] 34.0 pg Normal 26.0-34.0 [facility] Comment on above: Order Comment: Speci men Type: BLOOD SPECIMENOrdering Facility: [facility] Address: [address] [place] [address] Performed By: #### 5 7021-8 ####[facility] LABCLIA [id number] [place] [address] MCHC (RBC) [Mass/Vol] 33.8 g/dL Normal 30.5-36.0 [facility] Comment on above: Order Comment: Speci men Type: BLOOD SPECIMENOrdering Facility: [facility] Address: [address] [place] [address] Performed By: #### 5 7021-8 ####[facility] LABCLIA [id number] [place] [address] MCV (RBC) [Entitic vol] 100.7 fL High 80.0-100.0 [facility] Comment on above: Order Comment: Speci men Type: BLOOD SPECIMENOrdering Facility: [facility] Address: [address] [place] [address] Performed By: #### 5 7021-8 ####[facility] LABCLIA [id number] [place] [address] Monocytes (Bld) [#/Vol] 0.38 10*3/uL Normal <0.87 [facility] Comment on above: Order Comment: Speci men Type: BLOOD SPECIMENOrdering Facility: [facility] Address: [address] [place] [address] Performed By: #### 5 7021-8 ####[facility] LABCLIA [id number] [place] [address] Monocytes/100 WBC (Bld) 5.1 % Normal [facility] Comment on above: Order Comment: Speci men Type: BLOOD SPECIMENOrdering Facility: [facility] Address: [address] [place] [address] Performed By: #### 5 7021-8 ####[facility] LABCLIA [id number] [place] [address] Neutrophils (Bld) [#/Vol] 5.41 10*3/uL Normal 1.45-7.50 [facility] Comment on above: Order Comment: Speci men Type: BLOOD SPECIMENOrdering Facility: [facility] Address: [address] [place] [address] Performed By: #### 5 7021-8 ####[facility] LABCLIA [id number] [place] [address] Neutrophils/100 WBC (Bld) 73.2 % Normal [facility] Comment on above: Order Comment: Speci men Type: BLOOD SPECIMENOrdering Facility: [facility] Address: [address] [place] [address] Performed By: #### 5 7021-8 ####[facility] LABCLIA [id number] [place] [address] Nucleated RBC (Bld) [#/Vol] 10*3/uL Normal <0.01 [facility] Comment on above: Order Comment: Speci men Type: BLOOD SPECIMENOrdering Facility: [facility] Address: [address] [place] [address] Performed By: #### 5 7021-8 ####[facility] LABCLIA [id number] [place] [address] Nucleated RBC/100 WBC (Bld) [Ratio] 0.0 /100 WBC Normal [facility] Comment on above: Order Comment: Speci men Type: BLOOD SPECIMENOrdering Facility: [facility] Address: [address] [place] [address] Performed By: #### 5 7021-8 ####[facility] LABCLIA [id number] [place] [address] Platelet mean volume (Bld) [Entitic vol] 9.0 fL Normal 9.0-12.7 [facility] Comment on above: Order Comment: Speci men Type: BLOOD SPECIMENOrdering Facility: [facility] Address: [address] [place] [address] Performed By: #### 5 7021-8 ####[facility] LABCLIA [id number] [place] [address] Platelets (Bld) [#/Vol] 258 10*3/uL Normal 150-400 [facility] Comment on above: Order Comment: Speci men Type: BLOOD SPECIMENOrdering Facility: [facility] Address: [address] [place] [address] Performed By: #### 5 7021-8 ####[facility] LABCLIA [id number] [place] [address] RBC (Bld) [#/Vol] 2.97 10*6/uL Low 4.20-6.00 [facility] Comment on above: Order Comment: Speci men Type: BLOOD SPECIMENOrdering Facility: [facility] Address: [address] [place] [address] Performed By: #### 5 7021-8 ####[facility] LABCLIA [id number] [place] [address] WBC (Bld) [#/Vol] 7.40 10*3/uL Normal 3.70-11.00 [facility] Comment on above: Order Comment: Speci men Type: BLOOD SPECIMENOrdering Facility: [facility] Address: [address] [place] [address] Performed By: #### 5 7021-8 ####[facility] LABCLIA [id number] [place] [address] CNCNPATEDon 06-21-2023 CNCNPATED Normal [facility] CNOVSPon 06-21-2023 CNOVSP Normal [facility] Comprehensive metabolic 2000 panelon 06-21-2023 Albumin [Mass/Vol] 3.8 g/dL Low 3.9-4.9 [facility] Comment on above: Order Comment: Speci men Type: BLOOD SPECIMENOrdering Facility: [facility] Address: [address] [place] [address] Performed By: #### 2 4323-8 ####[facility] LABCLIA [id number] [place] [address] ALP [Catalytic activity/Vol] 121 U/L High 38-113 [facility] Comment on above: Order Comment: Speci men Type: BLOOD SPECIMENOrdering Facility: [facility] Address: [address] [place] [address] Performed By: #### 2 4323-8 ####[facility] LABCLIA [id number] [place] [address] ALT [Catalytic activity/Vol] 16 U/L Normal 10-54 [facility] Comment on above: Order Comment: Speci men Type: BLOOD SPECIMENOrdering Facility: [facility] Address: [address] [place] [address] Performed By: #### 2 4323-8 ####[facility] LABCLIA [id number] [place] [address] Anion gap [Moles/Vol] 9 mmol/L Normal 9-18 [facility] Comment on above: Order Comment: Speci men Type: BLOOD SPECIMENOrdering Facility: [facility] Address: [address] [place] [address] Performed By: #### 2 4323-8 ####[facility] LABCLIA [id number] [place] [address] AST [Catalytic activity/Vol] 15 U/L Normal 14-40 [facility] Comment on above: Order Comment: Speci men Type: BLOOD SPECIMENOrdering Facility: [facility] Address: [address] [place] [address] Performed By: #### 2 4323-8 ####[facility] LABCLIA [id number] [place] [address] Bilirubin [Mass/Vol] 1.2 mg/dL Normal 0.2-1.3 [facility] Comment on above: Order Comment: Speci men Type: BLOOD SPECIMENOrdering Facility: [facility] Address: [address] [place] [address] Performed By: #### 2 4323-8 ####[facility] LABCLIA [id number] [place] [address] Calcium [Mass/Vol] 10.2 mg/dL Normal 8.5-10.2 [facility] Comment on above: Order Comment: Speci men Type: BLOOD SPECIMENOrdering Facility: [facility] Address: [address] [place] [address] Performed By: #### 2 4323-8 ####[facility] LABCLIA [id number] [place] [address] Chloride [Moles/Vol] 107 mmol/L High 97-105 [facility] Comment on above: Order Comment: Speci men Type: BLOOD SPECIMENOrdering Facility: [facility] Address: [address] [place] [address] Performed By: #### 2 4323-8 ####[facility] LABCLIA [id number] [place] [address] CO2 [Moles/Vol] 23 mmol/L Normal 22-30 [facility] Comment on above: Order Comment: Speci men Type: BLOOD SPECIMENOrdering Facility: [facility] Address: [address] [place] [address] Performed By: #### 2 4323-8 ####[facility] LABCLIA [id number] [place] [address] Creatinine [Mass/Vol] 0.75 mg/dL Normal 0.73-1.22 [facility] Comment on above: Order Comment: Speci men Type: BLOOD SPECIMENOrdering Facility: [facility] Address: [address] [place] [address] Performed By: #### 2 4323-8 ####[facility] LABIA [id number] [place] [address] Creatinine and Glomerular filtration rate.predicted panel (S/P/Bld) 96 mL/min/1.73m??? Normal >=60 [facility] Comment on above: Order Comment: Speci men Type: BLOOD SPECIMENOrdering Facility: [facility] Address: [address] [place] [address] Result Comment: Kathy mated Glomerular Filtration Rate [...] actual GFR. Performed By: #### 2 4323-8 ####[facility] LABIA [id number] [place] [address] Glucose [Mass/Vol] 156 mg/dL High 74-99 [facility] Comment on above: Order Comment: Speci men Type: BLOOD SPECIMENOrdering Facility: [facility] Address: [address] [place] [address] Result Comment: The [place] [employer] (ADA) provides guidance for cutoff [...] Standards of Medical Care in Diabetes 2016, [place] [employer]. Diabetes Care. 2016.39(Suppl 1). Performed By: #### 2 4323-8 ####[facility] LABCLIA [id number] [place] [address] Potassium [Moles/Vol] 3.6 mmol/L Low 3.7-5.1 [facility] Comment on above: Order Comment: Speci men Type: BLOOD SPECIMENOrdering Facility: [facility] Address: [address] [place] [address] Performed By: #### 2 4323-8 ####[facility] LABCLIA [id number] [place] [address] Protein [Mass/Vol] 6.1 g/dL Low 6.3-8.0 [facility] Comment on above: Order Comment: Speci men Type: BLOOD SPECIMENOrdering Facility: [facility] Address: [address] [place] [address] Performed By: #### 2 4323-8 ####[facility] LABCLIA [id number] [place] [address] Sodium [Moles/Vol] 139 mmol/L Normal 136-144 [facility] Comment on above: Order Comment: Speci men Type: BLOOD SPECIMENOrdering Facility: [facility] Address: [address] [place] [address] Performed By: #### 2 4323-8 ####[facility] LABCLIA [id number] [place] [address] Urea nitrogen [Mass/Vol] 13 mg/dL Normal 9-24 [facility] Comment on above: Order Comment: Speci men Type: BLOOD SPECIMENOrdering Facility: [facility] Address: [address] [place] [address] Performed By: #### 2 4323-8 ####[facility] LABCLIA [id number] [place] [address] CNPNon 06-12-2023 CNPN Normal [facility] CNPNon 06-08-2023 CNPN Normal [facility] CBC W Auto Differential pane l (Bld)on 06-07-2023 Basophils (Bld) [#/Vol] 0.04 10*3/uL Normal <0.11 [facility] Comment on above: Order Comment: Speci men Type: BLOOD SPECIMENOrdering Facility: [facility] Address: [address] [place] [address] Performed By: #### 5 7021-8 ####[facility] LABCLIA [id number] [place] [address] Basophils/100 WBC (Bld) 0.4 % Normal [facility] Comment on above: Order Comment: Speci men Type: BLOOD SPECIMENOrdering Facility: [facility] Address: [address] [place] [address] Performed By: #### 5 7021-8 ####[facility] LABCLIA [id number] [place] [address] Differential cell count method Nom (Bld) Auto Normal [facility] Comment on above: Order Comment: Speci men Type: BLOOD SPECIMENOrdering Facility: [facility] Address: [address] [place] [address] Performed By: #### 5 7021-8 ####[facility] LABCLIA [id number] [place] [address] Eosinophils (Bld) [#/Vol] 10*3/uL Normal <0.46 [facility] Comment on above: Order Comment: Speci men Type: BLOOD SPECIMENOrdering Facility: [facility] Address: [address] [place] [address] Performed By: #### 5 7021-8 ####[facility] LABCLIA [id number] [place] [address] Eosinophils/100 WBC (Bld) 0.1 % Normal [facility] Comment on above: Order Comment: Speci men Type: BLOOD SPECIMENOrdering Facility: [facility] Address: [address] [place] [address] Performed By: #### 5 7021-8 ####[facility] LABCLIA [id number] [place] [address] Erythrocyte distribution width (RBC) [Ratio] 15.4 % High 11.5-15.0 [facility] Comment on above: Order Comment: Speci men Type: BLOOD SPECIMENOrdering Facility: [facility] Address: [address] [place] [address] Performed By: #### 5 7021-8 ####[facility] LABCLIA [id number] [place] [address] Hematocrit (Bld) [Volume fraction] 35.8 % Low 39.0-51.0 [facility] Comment on above: Order Comment: Speci men Type: BLOOD SPECIMENOrdering Facility: [facility] Address: [address] [place] [address] Performed By: #### 5 7021-8 ####[facility] LABCLIA [id number] [place] [address] Hemoglobin (Bld) [Mass/Vol] 11.7 g/dL Low 13.0-17.0 [facility] Comment on above: Order Comment: Speci men Type: BLOOD SPECIMENOrdering Facility: [facility] Address: [address] [place] [address] Performed By: #### 5 7021-8 ####[facility] LABCLIA [id number] [place] [address] Immature granulocytes (Bld) [#/Vol] 0.04 10*3/uL Normal <0.10 [facility] Comment on above: Order Comment: Speci men Type: BLOOD SPECIMENOrdering Facility: [facility] Address: [address] [place] [address] Performed By: #### 5 7021-8 ####[facility] LABCLIA [id number] [place] [address] Immature granulocytes/100 WBC (Bld) 0.4 % Normal [facility] Comment on above: Order Comment: Speci men Type: BLOOD SPECIMENOrdering Facility: [facility] Address: [address] [place] [address] Performed By: #### 5 7021-8 ####[facility] LABCLIA [id number] [place] [address] Lymphocytes (Bld) [#/Vol] 1.39 10*3/uL Normal 1.00-4.00 [facility] Comment on above: Order Comment: Speci men Type: BLOOD SPECIMENOrdering Facility: [facility] Address: [address] [place] [address] Performed By: #### 5 7021-8 ####[facility] LABCLIA [id number] [place] [address] Lymphocytes/100 WBC (Bld) 12.4 % Normal [facility] Comment on above: Order Comment: Speci men Type: BLOOD SPECIMENOrdering Facility: [facility] Address: [address] [place] [address] Performed By: #### 5 7021-8 ####[facility] LABIA [id number] [place] [address] MCH (RBC) [Entitic mass] 33.0 pg Normal 26.0-34.0 [facility] Comment on above: Order Comment: Speci men Type: BLOOD SPECIMENOrdering Facility: [facility] Address: [address] [place] [address] Performed By: #### 5 7021-8 ####[facility] LABCLIA [id number] [place] [address] MCHC (RBC) [Mass/Vol] 32.7 g/dL Normal 30.5-36.0 [facility] Comment on above: Order Comment: Speci men Type: BLOOD SPECIMENOrdering Facility: [facility] Address: [address] [place] [address] Performed By: #### 5 7021-8 ####[facility] LABCLIA [id number] [place] [address] MCV (RBC) [Entitic vol] 100.8 fL High 80.0-100.0 [facility] Comment on above: Order Comment: Speci men Type: BLOOD SPECIMENOrdering Facility: [facility] Address: [address] [place] [address] Performed By: #### 5 7021-8 ####[facility] LABCLIA [id number] [place] [address] Monocytes (Bld) [#/Vol] 0.76 10*3/uL Normal <0.87 [facility] Comment on above: Order Comment: Speci men Type: BLOOD SPECIMENOrdering Facility: [facility] Address: [address] [place] [address] Performed By: #### 5 7021-8 ####[facility] LABCLIA [id number] [place] [address] Monocytes/100 WBC (Bld) 6.8 % Normal [facility] Comment on above: Order Comment: Speci men Type: BLOOD SPECIMENOrdering Facility: [facility] Address: [address] [place] [address] Performed By: #### 5 7021-8 ####[facility] LABCLIA [id number] [place] [address] Neutrophils (Bld) [#/Vol] 8.98 10*3/uL High 1.45-7.50 [facility] Comment on above: Order Comment: Speci men Type: BLOOD SPECIMENOrdering Facility: [facility] Address: [address] [place] [address] Performed By: #### 5 7021-8 ####[facility] LABCLIA [id number] [place] [address] Neutrophils/100 WBC (Bld) 79.9 % Normal [facility] Comment on above: Order Comment: Speci men Type: BLOOD SPECIMENOrdering Facility: [facility] Address: [address] [place] [address] Performed By: #### 5 7021-8 ####[facility] LABCLIA [id number] [place] [address] Nucleated RBC (Bld) [#/Vol] 10*3/uL Normal <0.01 [facility] Comment on above: Order Comment: Speci men Type: BLOOD SPECIMENOrdering Facility: [facility] Address: [address] [place] [address] Performed By: #### 5 7021-8 ####[facility] LABCLIA [id number] [place] [address] Nucleated RBC/100 WBC (Bld) [Ratio] 0.0 /100 WBC Normal [facility] Comment on above: Order Comment: Speci men Type: BLOOD SPECIMENOrdering Facility: [facility] Address: [address] [place] [address] Performed By: #### 5 7021-8 ####[facility] LABCLIA [id number] [place] [address] Platelet mean volume (Bld) [Entitic vol] 9.9 fL Normal 9.0-12.7 [facility] Comment on above: Order Comment: Speci men Type: BLOOD SPECIMENOrdering Facility: [facility] Address: [address] [place] [address] Performed By: #### 5 7021-8 ####[facility] LABCLIA [id number] [place] [address] Platelets (Bld) [#/Vol] 297 10*3/uL Normal 150-400 [facility] Comment on above: Order Comment: Speci men Type: BLOOD SPECIMENOrdering Facility: [facility] Address: [address] [place] [address] Performed By: #### 5 7021-8 ####[facility] LABIA [id number] [place] [address] RBC (Bld) [#/Vol] 3.55 10*6/uL Low 4.20-6.00 [facility] Comment on above: Order Comment: Speci men Type: BLOOD SPECIMENOrdering Facility: [facility] Address: [address] [place] [address] Performed By: #### 5 7021-8 ####[facility] LABIA [id number] [place] [address] WBC (Bld) [#/Vol] 11.22 10*3/uL High 3.70-11.00 [facility] Comment on above: Order Comment: Speci men Type: BLOOD SPECIMENOrdering Facility: [facility] Address: [address] [place] [address] Performed By: #### 5 7021-8 ####[facility] LABIA [id number] [place] [address] CNCNPATEDon 06-07-2023 CNCNPATED Normal [facility] CNNURSEon 06-07-2023 CNNURSE Normal [facility] CNOVSPon 06-07-2023 CNOVSP Normal [facility] CNPNon 06-07-2023 CNPN Normal [facility] Comprehensive metabolic 2000 panelon 06-07-2023 Albumin [Mass/Vol] 4.3 g/dL Normal 3.9-4.9 [facility] Comment on above: Order Comment: Speci men Type: BLOOD SPECIMENOrdering Facility: [facility] Address: [address] [place] [address] Performed By: #### 2 4323-8 ####[facility] LABCLIA [id number] [place] [address] ALP [Catalytic activity/Vol] 127 U/L High 38-113 [facility] Comment on above: Order Comment: Speci men Type: BLOOD SPECIMENOrdering Facility: [facility] Address: [address] [place] [address] Performed By: #### 2 4323-8 ####[facility] LABCLIA [id number] [place] [address] ALT [Catalytic activity/Vol] 34 U/L Normal 10-54 [facility] Comment on above: Order Comment: Speci men Type: BLOOD SPECIMENOrdering Facility: [facility] Address: [address] [place] [address] Performed By: #### 2 4323-8 ####[facility] LABCLIA [id number] [place] [address] Anion gap [Moles/Vol] 9 mmol/L Normal 9-18 [facility] Comment on above: Order Comment: Speci men Type: BLOOD SPECIMENOrdering Facility: [facility] Address: [address] [place] [address] Performed By: #### 2 4323-8 ####[facility] LABCLIA [id number] [place], [place] [address] AST [Catalytic activity/Vol] 25 U/L Normal 14-40 [facility] Comment on above: Order Comment: Speci men Type: BLOOD SPECIMENOrdering Facility: [facility] Address: [address] [place] [address] Performed By: #### 2 4323-8 ####[facility] LABCLIA [id number] [place] [address] Bilirubin [Mass/Vol] 1.3 mg/dL Normal 0.2-1.3 [facility] Comment on above: Order Comment: Speci men Type: BLOOD SPECIMENOrdering Facility: [facility] Address: [address] [place] [address] Performed By: #### 2 4323-8 ####[facility] LABCLIA [id number] [place] [address] Calcium [Mass/Vol] 10.7 mg/dL High 8.5-10.2 [facility] Comment on above: Order Comment: Speci men Type: BLOOD SPECIMENOrdering Facility: [facility] Address: [address] [place] [address] Performed By: #### 2 4323-8 ####[facility] LABCLIA [id number] [place] [address] Chloride [Moles/Vol] 103 mmol/L Normal 97-105 [facility] Comment on above: Order Comment: Speci men Type: BLOOD SPECIMENOrdering Facility: [facility] Address: [address] [place] [address] Performed By: #### 2 4323-8 ####[facility] LABCLIA [id number] [place] [address] CO2 [Moles/Vol] 25 mmol/L Normal 22-30 [facility] Comment on above: Order Comment: Speci men Type: BLOOD SPECIMENOrdering Facility: [facility] Address: [address] [place] [address] Performed By: #### 2 4323-8 ####[facility] LABCLIA [id number] [place] [address] Creatinine [Mass/Vol] 0.78 mg/dL Normal 0.73-1.22 [facility] Comment on above: Order Comment: Speci men Type: BLOOD SPECIMENOrdering Facility: [facility] Address: [address] [place] [address] Performed By: #### 2 4323-8 ####[facility] LABCLIA [id number] [place] [address] Creatinine and Glomerular filtration rate.predicted panel (S/P/Bld) 95 mL/min/1.73m??? Normal >=60 [facility] Comment on above: Order Comment: Noemí hoff Type: BLOOD SPECIMENOrdering Facility: [facility] Address: [place] [address] Result Comment: Kathy mated Glomerular Filtration Rate [...] actual GFR. Performed By: #### 2 4323-8 ####[facility] LABCLIA [id number] [place] [address] Glucose [Mass/Vol] 165 mg/dL High 74-99 [facility] Comment on above: Order Comment: Noemí hoff Type: BLOOD SPECIMENOrdering Facility: [facility] Address: [address] [place] [address] Result Comment: The [place] Diabetes Association (ADA) provides guidance for cutoff [...] Standards of Medical Care in Diabetes 2016, [place] Diabetes [employer]. Diabetes Care. 2016.39(Suppl 1). Performed By: #### 2 4323-8 ####[facility] LABCLIA [id number] [place] [address] Potassium [Moles/Vol] 4.3 mmol/L Normal 3.7-5.1 [facility] Comment on above: Order Comment: Noemí hoff Type: BLOOD SPECIMENOrdering Facility: [facility] Address: [address] [id number] Performed By: #### 2 4323-8 ####[facility] LABCLIA [id number] [place] [address] Protein [Mass/Vol] 6.9 g/dL Normal 6.3-8.0 [facility] Comment on above: Order Comment: Speci men Type: BLOOD SPECIMENOrdering Facility: [facility] Address: [address] [place] [address] Performed By: #### 2 4323-8 ####[facility] LABCLIA [id number] [place] [address] Sodium [Moles/Vol] 137 mmol/L Normal 136-144 [facility] Comment on above: Order Comment: Speci men Type: BLOOD SPECIMENOrdering Facility: [facility] Address: [address] [place] [address] Performed By: #### 2 4323-8 ####[facility] LABCLIA [id number] [place] [address] Urea nitrogen [Mass/Vol] 18 mg/dL Normal 9-24 [facility] Comment on above: Order Comment: Speci men Type: BLOOD SPECIMENOrdering Facility: [facility] Address: [address] [place] [address] Performed By: #### 2 4323-8 ####[facility] LABCLIA [id number] [place] [address] CNPNon 06-06-2023 CNPN Normal [facility] CBC W Auto Differential pane l (Bld)on 05-24-2023 Basophils (Bld) [#/Vol] 10*3/uL Normal <0.11 [facility] Comment on above: Order Comment: Speci men Type: BLOOD SPECIMENOrdering Facility: [facility] Address: [address] [place] [address] Performed By: #### 5 7021-8 ####[facility] LABCLIA [id number] [place] [address] Basophils/100 WBC (Bld) 0.3 % Normal [facility] Comment on above: Order Comment: Speci men Type: BLOOD SPECIMENOrdering Facility: [facility] Address: [address] [place] [address] Performed By: #### 5 7021-8 ####[facility] LABCLIA [id number] [place] [address] Differential cell count method Nom (Bld) Auto Normal [facility] Comment on above: Order Comment: Speci men Type: BLOOD SPECIMENOrdering Facility: [facility] Address: [address] [place] [address] Performed By: #### 5 7021-8 ####[facility] LABCLIA [id number] [place] [address] Eosinophils (Bld) [#/Vol] 0.04 10*3/uL Normal <0.46 [facility] Comment on above: Order Comment: Speci men Type: BLOOD SPECIMENOrdering Facility: [facility] Address: [address] [place] [address] Performed By: #### 5 7021-8 ####[facility] LABCLIA [id number] [place] [address] Eosinophils/100 WBC (Bld) 0.5 % Normal [facility] Comment on above: Order Comment: Speci men Type: BLOOD SPECIMENOrdering Facility: [facility] Address: [address] [place] [address] Performed By: #### 5 7021-8 ####[facility] LABCLIA [id number] [place] [address] Erythrocyte distribution width (RBC) [Ratio] 19.4 % High 11.5-15.0 [facility] Comment on above: Order Comment: Speci men Type: BLOOD SPECIMENOrdering Facility: [facility] Address: [address] [place] [address] Performed By: #### 5 7021-8 ####[facility] LABCLIA [id number] [place] [address] Hematocrit (Bld) [Volume fraction] 33.0 % Low 39.0-51.0 [facility] Comment on above: Order Comment: Speci men Type: BLOOD SPECIMENOrdering Facility: [facility] Address: [address] [place] [address] Performed By: #### 5 7021-8 ####[facility] LABCLIA [id number] [place] [address] Hemoglobin (Bld) [Mass/Vol] 10.5 g/dL Low 13.0-17.0 [facility] Comment on above: Order Comment: Speci men Type: BLOOD SPECIMENOrdering Facility: [facility] Address: [address] [place] [address] Performed By: #### 5 7021-8 ####[facility] LABIA [id number] [place] [address] Immature granulocytes (Bld) [#/Vol] 0.03 10*3/uL Normal <0.10 [facility] Comment on above: Order Comment: Speci men Type: BLOOD SPECIMENOrdering Facility: [facility] Address: [address] [place] [address] Performed By: #### 5 7021-8 ####[facility] LABIA [id number] [place] [address] Immature granulocytes/100 WBC (Bld) 0.4 % Normal [facility] Comment on above: Order Comment: Speci men Type: BLOOD SPECIMENOrdering Facility: [facility] Address: [address] [place] [address] Performed By: #### 5 7021-8 ####[facility] LABIA [id number] [place] [address] Lymphocytes (Bld) [#/Vol] 1.47 10*3/uL Normal 1.00-4.00 [facility] Comment on above: Order Comment: Speci men Type: BLOOD SPECIMENOrdering Facility: [facility] Address: [address] [place] [address] Performed By: #### 5 7021-8 ####[facility] LABCLIA [id number] [place] [address] Lymphocytes/100 WBC (Bld) 19.8 % Normal [facility] Comment on above: Order Comment: Speci men Type: BLOOD SPECIMENOrdering Facility: [facility] Address: [address] [place] [address] Performed By: #### 5 7021-8 ####[facility] LABCLIA [id number] [place] [address] MCH (RBC) [Entitic mass] 32.5 pg Normal 26.0-34.0 [facility] Comment on above: Order Comment: Speci men Type: BLOOD SPECIMENOrdering Facility: [facility] Address: [address] [place] [address] Performed By: #### 5 7021-8 ####[facility] LABCLIA [id number] [place] [address] MCHC (RBC) [Mass/Vol] 31.8 g/dL Normal 30.5-36.0 [facility] Comment on above: Order Comment: Speci men Type: BLOOD SPECIMENOrdering Facility: [facility] Address: [address] [place] [address] Performed By: #### 5 7021-8 ####[facility] LABCLIA [id number] [place] [address] MCV (RBC) [Entitic vol] 102.2 fL High 80.0-100.0 [facility] Comment on above: Order Comment: Speci men Type: BLOOD SPECIMENOrdering Facility: [facility] Address: [address] [place] [address] Performed By: #### 5 7021-8 ####[facility] LABCLIA [id number] [place] [address] Monocytes (Bld) [#/Vol] 0.80 10*3/uL Normal <0.87 [facility] Comment on above: Order Comment: Speci men Type: BLOOD SPECIMENOrdering Facility: [facility] Address: [address] [place] [address] Performed By: #### 5 7021-8 ####[facility] LABCLIA [id number] [place] [address] Monocytes/100 WBC (Bld) 10.8 % Normal [facility] Comment on above: Order Comment: Speci men Type: BLOOD SPECIMENOrdering Facility: [facility] Address: [address] [place] [address] Performed By: #### 5 7021-8 ####[facility] LABCLIA [id number] [place] [address] Neutrophils (Bld) [#/Vol] 5.07 10*3/uL Normal 1.45-7.50 [facility] Comment on above: Order Comment: Speci men Type: BLOOD SPECIMENOrdering Facility: [facility] Address: [address] [place] [address] Performed By: #### 5 7021-8 ####[facility] LABCLIA [id number] [place] [address] Neutrophils/100 WBC (Bld) 68.2 % Normal [facility] Comment on above: Order Comment: Speci men Type: BLOOD SPECIMENOrdering Facility: [facility] Address: [address] [place] [address] Performed By: #### 5 7021-8 ####[facility] LABCLIA [id number] [place] [address] Nucleated RBC (Bld) [#/Vol] 10*3/uL Normal <0.01 [facility] Comment on above: Order Comment: Speci men Type: BLOOD SPECIMENOrdering Facility: [facility] Address: [address] [place] [address] Performed By: #### 5 7021-8 ####[facility] LABCLIA [id number] [place] [address] Nucleated RBC/100 WBC (Bld) [Ratio] 0.0 /100 WBC Normal [facility] Comment on above: Order Comment: Speci men Type: BLOOD SPECIMENOrdering Facility: [facility] Address: [address] [place] [address] Performed By: #### 5 7021-8 ####[facility] LABCLIA [id number] [place] [address] Platelet mean volume (Bld) [Entitic vol] 9.9 fL Normal 9.0-12.7 [facility] Comment on above: Order Comment: Speci men Type: BLOOD SPECIMENOrdering Facility: [facility] Address: [address] [place] [address] Performed By: #### 5 7021-8 ####[facility] LABCLIA [id number] [place] [address] Platelets (Bld) [#/Vol] 222 10*3/uL Normal 150-400 [facility] Comment on above: Order Comment: Speci men Type: BLOOD SPECIMENOrdering Facility: [facility] Address: [address] [place] [address] Performed By: #### 5 7021-8 ####[facility] LABCLIA [id number] [place] [address] RBC (Bld) [#/Vol] 3.23 10*6/uL Low 4.20-6.00 [facility] Comment on above: Order Comment: Speci men Type: BLOOD SPECIMENOrdering Facility: [facility] Address: [address] [place] [address] Performed By: #### 5 7021-8 ####[facility] LABCLIA [id number] [place] [address] WBC (Bld) [#/Vol] 7.43 10*3/uL Normal 3.70-11.00 [facility] Comment on above: Order Comment: Speci men Type: BLOOD SPECIMENOrdering Facility: [facility] Address: [address] [place] [address] Performed By: #### 5 7021-8 ####[facility] LABCLIA [id number] [place] [address] CNOVSPon 05-24-2023 CNOVSP Normal [facility] Cancer Ag19-9 SerPl-aCncon 0 05-24-2023 Cancer Ag 19-9 Qn 1757.0 [arb'U]/mL High <36.0 [facility] Comment on above: Order Comment: Speci men Type: BLOOD SPECIMENOrdering Facility: [facility] Address: [address] [place] [address] Result Comment: [facility] er antigen 19-9 test is used as an aid in monitoring response to treatment or recurrence in patients with established pancreatic, hepatobiliary, or gastrointestinal malignancies. Clinical correlation is required.The CA 19-9 Antigen test was performed using the [employer] DXI paramagnetic particle chemiluminescent immunoassay method. Results obtained with different assay methods or kits cannot be used interchangeably. Performed By: #### 2 4108-3 ####[facility] LABCLIA [id number] [facility] [id number] [id number] [place] Comprehensive metabolic 2000 panelon 05-24-2023 Albumin [Mass/Vol] 4.3 g/dL Normal 3.9-4.9 [facility] Comment on above: Order Comment: Speci men Type: BLOOD SPECIMENOrdering Facility: [facility] Address: [address] [place] [address] Performed By: #### 2 4323-8 ####[facility] LABCLIA [id number] [place] [address] ALP [Catalytic activity/Vol] 127 U/L High 38-113 [facility] Comment on above: Order Comment: Speci men Type: BLOOD SPECIMENOrdering Facility: [facility] Address: [address] [place] [address] Performed By: #### 2 4323-8 ####[facility] LABCLIA [id number] [place] [address] ALT [Catalytic activity/Vol] 22 U/L Normal 10-54 [facility] Comment on above: Order Comment: Speci men Type: BLOOD SPECIMENOrdering Facility: [facility] Address: [address] [place] [address] Performed By: #### 2 4323-8 ####[facility] LABCLIA [id number] [place] [address] Anion gap [Moles/Vol] 9 mmol/L Normal 9-18 [facility] Comment on above: Order Comment: Speci men Type: BLOOD SPECIMENOrdering Facility: [facility] Address: [address] [place] [address] Performed By: #### 2 4323-8 ####[facility] LABCLIA [id number] [place] [address] AST [Catalytic activity/Vol] 20 U/L Normal 14-40 [facility] Comment on above: Order Comment: Speci men Type: BLOOD SPECIMENOrdering Facility: [facility] Address: [address] [place] [address] Performed By: #### 2 4323-8 ####[facility] LABCLIA [id number] [place] [address] Bilirubin [Mass/Vol] 1.3 mg/dL Normal 0.2-1.3 [facility] Comment on above: Order Comment: Speci men Type: BLOOD SPECIMENOrdering Facility: [facility] Address: [address] [place] [address] Performed By: #### 2 4323-8 ####[facility] LABCLIA [id number] [place] [address] Calcium [Mass/Vol] 10.8 mg/dL High 8.5-10.2 [facility] Comment on above: Order Comment: Speci men Type: BLOOD SPECIMENOrdering Facility: [facility] Address: [address] [place] [address] Performed By: #### 2 4323-8 ####[facility] LABCLIA [id number] [place] [address] Chloride [Moles/Vol] 101 mmol/L Normal 97-105 [facility] Comment on above: Order Comment: Speci men Type: BLOOD SPECIMENOrdering Facility: [facility] Address: [address] [place] [address] Performed By: #### 2 4323-8 ####[facility] LABCLIA [id number] [place] [address] CO2 [Moles/Vol] 25 mmol/L Normal 22-30 [facility] Comment on above: Order Comment: Speci men Type: BLOOD SPECIMENOrdering Facility: [facility] Address: [address] [place] [address] Performed By: #### 2 4323-8 ####[facility] LABCLIA [id number] [place] [address] Creatinine [Mass/Vol] 0.84 mg/dL Normal 0.73-1.22 [facility] Comment on above: Order Comment: Speci men Type: BLOOD SPECIMENOrdering Facility: [facility] Address: [address] [place] [address] Performed By: #### 2 4323-8 ####[facility] LABCLIA [id number] [place] [address] Creatinine and Glomerular filtration rate.predicted panel (S/P/Bld) 93 mL/min/1.73m??? Normal >=60 [facility] Comment on above: Order Comment: Speci men Type: BLOOD SPECIMENOrdering Facility: [facility] Address: [address] [place] [address] Result Comment: Kathy mated Glomerular Filtration Rate [...] actual GFR. Performed By: #### 2 4323-8 ####[facility] LABCLIA [id number] [place] [address] Glucose [Mass/Vol] 129 mg/dL High 74-99 [facility] Comment on above: Order Comment: Speci men Type: BLOOD SPECIMENOrdering Facility: [facility] Address: [address] [place] [address] Result Comment: The [place] Diabetes Association (ADA) provides guidance for cutoff [...] Standards of Medical Care in Diabetes 2016, [place] Diabetes [employer]. Diabetes Care. 2016.39(Suppl 1). Performed By: #### 2 4323-8 ####[facility] LABCLIA [id number] [place] [address] Potassium [Moles/Vol] 4.0 mmol/L Normal 3.7-5.1 [facility] Comment on above: Order Comment: Speci men Type: BLOOD SPECIMENOrdering Facility: [facility] Address: [address] [place] [address] Performed By: #### 2 4323-8 ####[facility] LABCLIA [id number] [place] [address] Protein [Mass/Vol] 7.2 g/dL Normal 6.3-8.0 [facility] Comment on above: Order Comment: Speci men Type: BLOOD SPECIMENOrdering Facility: [facility] Address: [address] [place] [address] Performed By: #### 2 4323-8 ####[facility] LABCLIA [id number] [place] [address] Sodium [Moles/Vol] 135 mmol/L Low 136-144 [facility] Comment on above: Order Comment: Speci men Type: BLOOD SPECIMENOrdering Facility: [facility] Address: [address] [place] [address] Performed By: #### 2 4323-8 ####[facility] LABCLIA [id number] [place] [address] Urea nitrogen [Mass/Vol] 20 mg/dL Normal 9-24 [facility] Comment on above: Order Comment: Speci men Type: BLOOD SPECIMENOrdering Facility: [facility] Address: [address] [place] [address] Performed By: #### 2 4323-8 ####[facility] LABCLIA [id number] [place] [address] CREATININE BLDon 05-18-2023 Creatinine [Mass/Vol] 0.80 mg/dL Normal 0.73-1.22 [facility] Comment on above: Order Comment: Speci men Type: BLOOD SPECIMENOrdering Facility: [facility] Address: [address] [place] [address] Performed By: #### C RET1 ####[facility] LABCLIA [id number] [place] [address] Creatinine and Glomerular filtration rate.predicted panel (S/P/Bld) 94 mL/min/1.73m??? Normal >=60 [facility] Comment on above: Order Comment: Speci men Type: BLOOD SPECIMENOrdering Facility: [facility] Address: [address] [place] [address] Result Comment: Kathy mated Glomerular Filtration Rate [...] actual GFR. Performed By: #### C RET1 ####[facility] LABCLIA [id number] [place] [address] CT ABD/PEL W IVCONon 023 CT ABD/PEL W IVCON Normal [facility] CT Abdomen and Pelvis W [...] any questions regarding this interpretation, please call [phone]. If you are unable to reach us at the number above, please feel free to contact [facility] at [phone]. DIVISION OF RADIOLOGY * * *Final Report* * * DATE OF EXAM: May 18 2023 11:17AM [facility] 0530 - CT ABD/PEL W IVCON / [...] when it measured 4.9 x 3.4 cm. Nitrating Acid Mixer Mesentery/Peritoneum: Soft tissue implant anterior to the [...] chest CT performed will be reported separately. Nitrating Acid Mixer (topogram) images: No additional findings. DIVISION OF RADIOLOGY Provider, [facility] 05/18/2023 * * *Final Report* * * DATE OF EXAM: May 18 2023 11:17AM [facility] 0530 - CT ABD/PEL W IVCON / [...] when it measured 4.9 x 3.4 cm. Nitrating Acid Mixer Mesentery/Peritoneum: Soft tissue implant anterior to the [...] chest CT performed will be reported separately. Nitrating Acid Mixer (topogram) images: No additional findings. IMPRESSION IMPRESSION: [...] any questions regarding this interpretation, please call [phone]. If you are unable to reach us at the number above, please feel free to contact [facility] at [phone]. [facility] CT CHEST W IVCONon 3 CT CHEST W IVCON Normal [facility] CT Chest W contrast [place] IMPRESSION: 1. [...] any questions regarding this interpretation, please call [phone]. If you are unable to reach us at the number above, please feel free to contact [facility] at [phone]. DIVISION OF RADIOLOGY * * *Final Report* * * DATE OF EXAM: May 18 2023 11:17AM [facility] 0539 - CT CHEST W IVCON / [...] was performed and will be reported separately. Nitrating Acid Mixer (topogram) images: No additional findings. DIVISION OF RADIOLOGY Provider, [facility] - 05/18/2023 * * *Final Report* * * DATE OF EXAM: May 18 2023 11:17AM [facility] 0539 - CT CHEST W IVCON / [...] was performed and will be reported separately. Nitrating Acid Mixer (topogram) images: No additional findings. IMPRESSION IMPRESSION: [...] any questions regarding this interpretation, please call [phone]. If you are unable to reach us at the number above, please feel free to contact [facility] eRadiology at [phone]. [facility] CT Chest W contrast IVOrdere d By: Ccmichele Provider on 05-18-2023 [facility] Laboratory - Chemistry and C hemistry - challengeOrdered By: Elizabeth Yu on 05-18-2023 Creatinine [Mass/Vol] 0.80 mg/dL 0.73 - 1.22 mg/dL [facility] GFR/1.73 sq M.predicted among non-blacks MDRD (S/P/Bld) [Vol rate/Area] 94 mL/min/{1.73_m2} - PINF [facility] Comment on above: Estimated Glomerular Filtration [...] Interpretation and review of laboratory results Normal [facility] No Panel Informationon 05-18 Radiology Study observation (narrative) [facility] CBC W Auto Differential pane l (Bld)on 05-12-2023 Basophils (Bld) [#/Vol] 0.03 10*3/uL Normal <0.11 [facility] Comment on above: Order Comment: Speci men Type: BLOOD SPECIMENOrdering Facility: [facility] Address: [address] [place] [address] Performed By: #### 5 7021-8 ####[facility] LABCLIA [id number] [place] [address] Basophils/100 WBC (Bld) 0.5 % Normal [facility] Comment on above: Order Comment: Speci men Type: BLOOD SPECIMENOrdering Facility: [facility] Address: [address] [place] [address] Performed By: #### 5 7021-8 ####[facility] LABCLIA [id number] [place] [address] Differential cell count method Nom (Bld) Auto Normal [facility] Comment on above: Order Comment: Speci men Type: BLOOD SPECIMENOrdering Facility: [facility] Address: [address] [place] [address] Performed By: #### 5 7021-8 ####[facility] LABCLIA [id number] [place] [address] Eosinophils (Bld) [#/Vol] 10*3/uL Normal <0.46 [facility] Comment on above: Order Comment: Speci men Type: BLOOD SPECIMENOrdering Facility: [facility] Address: [address] [place] [address] Performed By: #### 5 7021-8 ####[facility] LABCLIA [id number] [place] [address] Eosinophils/100 WBC (Bld) 0.4 % Normal [facility] Comment on above: Order Comment: Speci men Type: BLOOD SPECIMENOrdering Facility: [facility] Address: [address] [place] [address] Performed By: #### 5 7021-8 ####[facility] LABCLIA [id number] [place] [address] Erythrocyte distribution width (RBC) [Ratio] 17.2 % High 11.5-15.0 [facility] Comment on above: Order Comment: Speci men Type: BLOOD SPECIMENOrdering Facility: [facility] Address: [address] [place] [address] Performed By: #### 5 7021-8 ####[facility] LABCLIA [id number] [place] [address] Hematocrit (Bld) [Volume fraction] 29.8 % Low 39.0-51.0 [facility] Comment on above: Order Comment: Speci men Type: BLOOD SPECIMENOrdering Facility: [facility] Address: [address] [place] [address] Performed By: #### 5 7021-8 ####[facility] LABCLIA [id number] [place] [address] Hemoglobin (Bld) [Mass/Vol] 9.8 g/dL Low 13.0-17.0 [facility] Comment on above: Order Comment: Speci men Type: BLOOD SPECIMENOrdering Facility: [facility] Address: [address] [place] [address] Performed By: #### 5 7021-8 ####[facility] LABCLIA [id number] [place] [address] Immature granulocytes (Bld) [#/Vol] 10*3/uL Normal <0.10 [facility] Comment on above: Order Comment: Speci men Type: BLOOD SPECIMENOrdering Facility: [facility] Address: [address] [place] [address] Performed By: #### 5 7021-8 ####[facility] LABCLIA [id number] [place] [address] Immature granulocytes/100 WBC (Bld) 0.4 % Normal [facility] Comment on above: Order Comment: Speci men Type: BLOOD SPECIMENOrdering Facility: [facility] Address: [address] [place] [address] Performed By: #### 5 7021-8 ####[facility] LABCLIA [id number] [place] [address] Lymphocytes (Bld) [#/Vol] 1.83 10*3/uL Normal 1.00-4.00 [facility] Comment on above: Order Comment: Speci men Type: BLOOD SPECIMENOrdering Facility: [facility] Address: [address] [place] [address] Performed By: #### 5 7021-8 ####[facility] LABCLIA [id number] [place] [address] Lymphocytes/100 WBC (Bld) 33.0 % Normal [facility] Comment on above: Order Comment: Speci men Type: BLOOD SPECIMENOrdering Facility: [facility] Address: [address] [place] [address] Performed By: #### 5 7021-8 ####[facility] LABCLIA [id number] [place] [address] MCH (RBC) [Entitic mass] 31.5 pg Normal 26.0-34.0 [facility] Comment on above: Order Comment: Speci men Type: BLOOD SPECIMENOrdering Facility: [facility] Address: [address] [place] [address] Performed By: #### 5 7021-8 ####[facility] LABCLIA [id number] [place] [address] MCHC (RBC) [Mass/Vol] 32.9 g/dL Normal 30.5-36.0 [facility] Comment on above: Order Comment: Speci men Type: BLOOD SPECIMENOrdering Facility: [facility] Address: [address] [place] [address] Performed By: #### 5 7021-8 ####[facility] LABCLIA [id number] [place] [address] MCV (RBC) [Entitic vol] 95.8 fL Normal 80.0-100.0 [facility] Comment on above: Order Comment: Speci men Type: BLOOD SPECIMENOrdering Facility: [facility] Address: [address] [place] [address] Performed By: #### 5 7021-8 ####[facility] LABCLIA [id number] [place] [address] Monocytes (Bld) [#/Vol] 0.40 10*3/uL Normal <0.87 [facility] Comment on above: Order Comment: Speci men Type: BLOOD SPECIMENOrdering Facility: [facility] Address: [address] [place] [address] Performed By: #### 5 7021-8 ####[facility] LABCLIA [id number] [place] [address] Monocytes/100 WBC (Bld) 7.2 % Normal [facility] Comment on above: Order Comment: Speci men Type: BLOOD SPECIMENOrdering Facility: [facility] Address: [address] [place] [address] Performed By: #### 5 7021-8 ####[facility] LABIA [id number] [place] [address] Neutrophils (Bld) [#/Vol] 3.24 10*3/uL Normal 1.45-7.50 [facility] Comment on above: Order Comment: Speci men Type: BLOOD SPECIMENOrdering Facility: [facility] Address: [address] [place] [address] Performed By: #### 5 7021-8 ####[facility] LABCLIA [id number] [place] [address] Neutrophils/100 WBC (Bld) 58.5 % Normal [facility] Comment on above: Order Comment: Speci men Type: BLOOD SPECIMENOrdering Facility: [facility] Address: [address] [place] [address] Performed By: #### 5 7021-8 ####[facility] LABCLIA [id number] [place] [address] Nucleated RBC (Bld) [#/Vol] 10*3/uL Normal <0.01 [facility] Comment on above: Order Comment: Speci men Type: BLOOD SPECIMENOrdering Facility: [facility] Address: [address] [place] [address] Performed By: #### 5 7021-8 ####[facility] LABCLIA [id number] [place] [address] Nucleated RBC/100 WBC (Bld) [Ratio] 0.0 /100 WBC Normal [facility] Comment on above: Order Comment: Speci men Type: BLOOD SPECIMENOrdering Facility: [facility] Address: [address] [place] [address] Performed By: #### 5 7021-8 ####[facility] LABCLIA [id number] [place] [address] Platelet mean volume (Bld) [Entitic vol] 10.2 fL Normal 9.0-12.7 [facility] Comment on above: Order Comment: Speci men Type: BLOOD SPECIMENOrdering Facility: [facility] Address: [address] [place] [address] Performed By: #### 5 7021-8 ####[facility] LABCLIA [id number] [place] [address] Platelets (Bld) [#/Vol] 186 10*3/uL Normal 150-400 [facility] Comment on above: Order Comment: Speci men Type: BLOOD SPECIMENOrdering Facility: [facility] Address: [address] [place] [address] Performed By: #### 5 7021-8 ####[facility] LABCLIA [id number] [place] [address] RBC (Bld) [#/Vol] 3.11 10*6/uL Low 4.20-6.00 [facility] Comment on above: Order Comment: Speci men Type: BLOOD SPECIMENOrdering Facility: [facility] Address: [address] [place] [address] Performed By: #### 5 7021-8 ####[facility] LABIA [id number] [place] [address] WBC (Bld) [#/Vol] 5.54 10*3/uL Normal 3.70-11.00 [facility] Comment on above: Order Comment: Speci men Type: BLOOD SPECIMENOrdering Facility: [facility] Address: [address] [place] [address] Performed By: #### 5 7021-8 ####[facility] LABIA [id number] [place] [address] CNOVSPon 05-12-2023 CNOVSP Normal [facility] Comprehensive metabolic 2000 panelon 05-12-2023 Albumin [Mass/Vol] 4.1 g/dL Normal 3.9-4.9 [facility] Comment on above: Order Comment: Speci men Type: BLOOD SPECIMENOrdering Facility: [facility] Address: [address] [place] [address] Performed By: #### 2 4323-8 ####[facility] LABIA [id number] [place] [address] ALP [Catalytic activity/Vol] 116 U/L High 38-113 [facility] Comment on above: Order Comment: Speci men Type: BLOOD SPECIMENOrdering Facility: [facility] Address: [address] [place] [address] Performed By: #### 2 4323-8 ####[facility] LABCLIA [id number] [place] [address] ALT [Catalytic activity/Vol] 32 U/L Normal 10-54 [facility] Comment on above: Order Comment: Speci men Type: BLOOD SPECIMENOrdering Facility: [facility] Address: [address] [place] [address] Performed By: #### 2 4323-8 ####[facility] LABCLIA [id number] [place] [address] Anion gap [Moles/Vol] 8 mmol/L Low 9-18 [facility] Comment on above: Order Comment: Speci men Type: BLOOD SPECIMENOrdering Facility: [facility] Address: [address] [place] [address] Performed By: #### 2 4323-8 ####[facility] LABCLIA [id number] [place] [address] AST [Catalytic activity/Vol] 24 U/L Normal 14-40 [facility] Comment on above: Order Comment: Speci men Type: BLOOD SPECIMENOrdering Facility: [facility] Address: [address] [place] [address] Performed By: #### 2 4323-8 ####[facility] LABCLIA [id number] [place] [address] Bilirubin [Mass/Vol] 1.2 mg/dL Normal 0.2-1.3 [facility] Comment on above: Order Comment: Speci men Type: BLOOD SPECIMENOrdering Facility: [facility] Address: [address] [place] [address] Performed By: #### 2 4323-8 ####[facility] LABCLIA [id number] [place] [address] Calcium [Mass/Vol] 10.9 mg/dL High 8.5-10.2 [facility] Comment on above: Order Comment: Speci men Type: BLOOD SPECIMENOrdering Facility: [facility] Address: [address] [place] [address] Performed By: #### 2 4323-8 ####[facility] LABCLIA [id number] [place] [address] Chloride [Moles/Vol] 104 mmol/L Normal 97-105 [facility] Comment on above: Order Comment: Speci men Type: BLOOD SPECIMENOrdering Facility: [facility] Address: [address] [place] [address] Performed By: #### 2 4323-8 ####[facility] LABCLIA [id number] [place] [address] CO2 [Moles/Vol] 26 mmol/L Normal 22-30 [facility] Comment on above: Order Comment: Speci men Type: BLOOD SPECIMENOrdering Facility: [facility] Address: [address] [place] [address] Performed By: #### 2 4323-8 ####[facility] LABCLIA [id number] [place] [address] Creatinine [Mass/Vol] 0.75 mg/dL Normal 0.73-1.22 [facility] Comment on above: Order Comment: Speci men Type: BLOOD SPECIMENOrdering Facility: [facility] Address: [address] [place] [address] Performed By: #### 2 4323-8 ####[facility] LABCLIA [id number] [place] [address] Creatinine and Glomerular filtration rate.predicted panel (S/P/Bld) 96 mL/min/1.73m??? Normal >=60 [facility] Comment on above: Order Comment: Speci men Type: BLOOD SPECIMENOrdering Facility: [facility] Address: [address] [place] [address] Result Comment: Kathy mated Glomerular Filtration Rate [...] actual GFR. Performed By: #### 2 4323-8 ####[facility] LABCLIA [id number] [place] [address] Glucose [Mass/Vol] 152 mg/dL High 74-99 [facility] Comment on above: Order Comment: Speci men Type: BLOOD SPECIMENOrdering Facility: [facility] Address: [address] [place] [address] Result Comment: The [place] Diabetes [employer] (ADA) provides guidance for cutoff [...] Standards of Medical Care in Diabetes 2016, [place] [employer]. Diabetes Care. 2016.39(Suppl 1). Performed By: #### 2 4323-8 ####[facility] LABCLIA [id number] [place] [address] Potassium [Moles/Vol] 4.1 mmol/L Normal 3.7-5.1 [facility] Comment on above: Order Comment: Speci men Type: BLOOD SPECIMENOrdering Facility: [facility] Address: [address] [place] [address] Performed By: #### 2 4323-8 ####[facility] LABCLIA [id number] [place] [address] Protein [Mass/Vol] 7.1 g/dL Normal 6.3-8.0 [facility] Comment on above: Order Comment: Speci men Type: BLOOD SPECIMENOrdering Facility: [facility] Address: [address] [place] [address] Performed By: #### 2 4323-8 ####[facility] LABCLIA [id number] [place] [address] Sodium [Moles/Vol] 138 mmol/L Normal 136-144 [facility] Comment on above: Order Comment: Speci men Type: BLOOD SPECIMENOrdering Facility: [facility] Address: [address] [place] [address] Performed By: #### 2 4323-8 ####[facility] LABCLIA [id number] [place] [address] Urea nitrogen [Mass/Vol] 16 mg/dL Normal 9-24 [facility] Comment on above: Order Comment: Speci men Type: BLOOD SPECIMENOrdering Facility: [facility] Address: [address] [place] [address] Performed By: #### 2 4323-8 ####[facility] LABCLIA [id number] [place] [address] CNPNon 05-08-2023 CNPN Normal [facility] CBC W Auto Differential pane l (Bld)on 05-05-2023 Basophils (Bld) [#/Vol] 0.05 10*3/uL <0.11 k/uL [facility] Basophils/100 WBC (Bld) 0.3 % [facility] Differential cell count method Nom (Bld) Auto [facility] Eosinophils (Bld) [#/Vol] 0.04 10*3/uL <0.46 k/uL [facility] Eosinophils/100 WBC (Bld) 0.3 % [facility] Erythrocyte distribution width (RBC) [Ratio] 17.2 % High 11.5 - 15.0 % [facility] Hematocrit (Bld) [Volume fraction] 36.8 % Low 39.0 - 51.0 % [facility] Hemoglobin (Bld) [Mass/Vol] 12.0 g/dL Low 13.0 - 17.0 g/dL [facility] Immature granulocytes (Bld) [#/Vol] 0.07 10*3/uL <0.10 k/uL [facility] Immature granulocytes/100 WBC (Bld) 0.5 % [facility] Lymphocytes (Bld) [#/Vol] 2.10 10*3/uL 1.00 - 4.00 k/uL [facility] Lymphocytes/100 WBC (Bld) 14.4 % [facility] MCH (RBC) [Entitic mass] 31.4 pg 26.0 - 34.0 pg [facility] MCHC (RBC) [Mass/Vol] 32.6 g/dL 30.5 - 36.0 g/dL [facility] MCV (RBC) [Entitic vol] 96.3 fL 80.0 - 100.0 fL [facility] Monocytes (Bld) [#/Vol] 1.12 10*3/uL High <0.87 k/uL [facility] Monocytes/100 WBC (Bld) 7.7 % [facility] Neutrophils (Bld) [#/Vol] 11.22 10*3/uL High 1.45 - 7.50 k/uL [facility] Neutrophils/100 WBC (Bld) 76.8 % [facility] Nucleated RBC (Bld) [#/Vol] <0.01 k/uL [facility] Nucleated RBC/100 WBC (Bld) [Ratio] 0.0 /100 WBC [facility] Platelet mean volume (Bld) [Entitic vol] 10.2 fL 9.0 - 12.7 fL [facility] Platelets (Bld) [#/Vol] 376 10*3/uL 150 - 400 k/uL [facility] RBC (Bld) [#/Vol] 3.82 10*6/uL Low 4.20 - 6.0 0 m/uL [facility] WBC (Bld) [#/Vol] 14.60 10*3/uL High 3.70 - 11.00 k/uL [facility] Basophils (Bld) [#/Vol] 0.05 10*3/uL Normal <0.11 [facility] Comment on above: Order Comment: Speci men Type: BLOOD SPECIMENOrdering Facility: [facility] Address: [address] [place], [place] [id number] Performed By: #### 5 7021-8 ####[facility] LABCLIA [id number] [place] [address] Basophils/100 WBC (Bld) 0.3 % Normal [facility] Comment on above: Order Comment: Speci men Type: BLOOD SPECIMENOrdering Facility: [facility] Address: [address] [place] [address] Performed By: #### 5 7021-8 ####[facility] LABCLIA [id number] [place] [address] Differential cell count method Nom (Bld) Auto Normal [facility] Comment on above: Order Comment: Speci men Type: BLOOD SPECIMENOrdering Facility: [facility] Address: [address] [place] [address] Performed By: #### 5 7021-8 ####[facility] LABCLIA [id number] [place] [address] Eosinophils (Bld) [#/Vol] 0.04 10*3/uL Normal <0.46 [facility] Comment on above: Order Comment: Speci men Type: BLOOD SPECIMENOrdering Facility: [facility] Address: [address] [place] [address] Performed By: #### 5 7021-8 ####[facility] LABCLIA [id number] [place] [address] Eosinophils/100 WBC (Bld) 0.3 % Normal [facility] Comment on above: Order Comment: Speci men Type: BLOOD SPECIMENOrdering Facility: [facility] Address: [address] [place] [address] Performed By: #### 5 7021-8 ####[facility] LABCLIA [id number] [place] [address] Erythrocyte distribution width (RBC) [Ratio] 17.2 % High 11.5-15.0 [facility] Comment on above: Order Comment: Speci men Type: BLOOD SPECIMENOrdering Facility: [facility] Address: [address] [place] [address] Performed By: #### 5 7021-8 ####[facility] LABCLIA [id number] [place] [address] Hematocrit (Bld) [Volume fraction] 36.8 % Low 39.0-51.0 [facility] Comment on above: Order Comment: Speci men Type: BLOOD SPECIMENOrdering Facility: [facility] Address: [address] [place] [address] Performed By: #### 5 7021-8 ####[facility] LABCLIA [id number] [place] [address] Hemoglobin (Bld) [Mass/Vol] 12.0 g/dL Low 13.0-17.0 [facility] Comment on above: Order Comment: Speci men Type: BLOOD SPECIMENOrdering Facility: [facility] Address: [address] [place] [address] Performed By: #### 5 7021-8 ####[facility] LABCLIA [id number] [place] [address] Immature granulocytes (Bld) [#/Vol] 0.07 10*3/uL Normal <0.10 [facility] Comment on above: Order Comment: Speci men Type: BLOOD SPECIMENOrdering Facility: [facility] Address: [address] [place] [address] Performed By: #### 5 7021-8 ####[facility] LABCLIA [id number] [place] [address] Immature granulocytes/100 WBC (Bld) 0.5 % Normal [facility] Comment on above: Order Comment: Speci men Type: BLOOD SPECIMENOrdering Facility: [facility] Address: [address] [place] [address] Performed By: #### 5 7021-8 ####[facility] LABCLIA [id number] [place] [address] Lymphocytes (Bld) [#/Vol] 2.10 10*3/uL Normal 1.00-4.00 [facility] Comment on above: Order Comment: Speci men Type: BLOOD SPECIMENOrdering Facility: [facility] Address: [address] [place] [address] Performed By: #### 5 7021-8 ####[facility] LABCLIA [id number] [place] [address] Lymphocytes/100 WBC (Bld) 14.4 % Normal [facility] Comment on above: Order Comment: Speci men Type: BLOOD SPECIMENOrdering Facility: [facility] Address: [address] [place] [address] Performed By: #### 5 7021-8 ####[facility] LABCLIA [id number] [place] [address] MCH (RBC) [Entitic mass] 31.4 pg Normal 26.0-34.0 [facility] Comment on above: Order Comment: Speci men Type: BLOOD SPECIMENOrdering Facility: [facility] Address: [address] [place] [address] Performed By: #### 5 7021-8 ####[facility] LABCLIA [id number] [place] [address] MCHC (RBC) [Mass/Vol] 32.6 g/dL Normal 30.5-36.0 [facility] Comment on above: Order Comment: Speci men Type: BLOOD SPECIMENOrdering Facility: [facility] Address: [address] [place] [address] Performed By: #### 5 7021-8 ####[facility] LABCLIA [id number] [place] [address] MCV (RBC) [Entitic vol] 96.3 fL Normal 80.0-100.0 [facility] Comment on above: Order Comment: Speci men Type: BLOOD SPECIMENOrdering Facility: [facility] Address: [address] [place] [address] Performed By: #### 5 7021-8 ####[facility] LABCLIA [id number] [place] [address] Monocytes (Bld) [#/Vol] 1.12 10*3/uL High <0.87 [facility] Comment on above: Order Comment: Speci men Type: BLOOD SPECIMENOrdering Facility: [facility] Address: [address] [place] [address] Performed By: #### 5 7021-8 ####[facility] LABCLIA [id number] [place] [address] Monocytes/100 WBC (Bld) 7.7 % Normal [facility] Comment on above: Order Comment: Speci men Type: BLOOD SPECIMENOrdering Facility: [facility] Address: [address] [place] [address] Performed By: #### 5 7021-8 ####[facility] LABCLIA [id number] [place] [address] Neutrophils (Bld) [#/Vol] 11.22 10*3/uL High 1.45-7.50 [facility] Comment on above: Order Comment: Speci men Type: BLOOD SPECIMENOrdering Facility: [facility] Address: [address] [place] [address] Performed By: #### 5 7021-8 ####[facility] LABCLIA [id number] [place] [address] Neutrophils/100 WBC (Bld) 76.8 % Normal [facility] Comment on above: Order Comment: Speci men Type: BLOOD SPECIMENOrdering Facility: [facility] Address: [address] [place] [address] Performed By: #### 5 7021-8 ####[facility] LABCLIA [id number] [place] [address] Nucleated RBC (Bld) [#/Vol] 10*3/uL Normal <0.01 [facility] Comment on above: Order Comment: Speci men Type: BLOOD SPECIMENOrdering Facility: [facility] Address: [address] [place] [address] Performed By: #### 5 7021-8 ####[facility] LABCLIA [id number] [place] [address] Nucleated RBC/100 WBC (Bld) [Ratio] 0.0 /100 WBC Normal [facility] Comment on above: Order Comment: Speci men Type: BLOOD SPECIMENOrdering Facility: [facility] Address: [address] [place] [address] Performed By: #### 5 7021-8 ####[facility] LABCLIA [id number] [place] [address] Platelet mean volume (Bld) [Entitic vol] 10.2 fL Normal 9.0-12.7 [facility] Comment on above: Order Comment: Speci men Type: BLOOD SPECIMENOrdering Facility: [facility] Address: [address] [place] [address] Performed By: #### 5 7021-8 ####[facility] LABCLIA [id number] [place] [address] Platelets (Bld) [#/Vol] 376 10*3/uL Normal 150-400 [facility] Comment on above: Order Comment: Speci men Type: BLOOD SPECIMENOrdering Facility: [facility] Address: [address] [place] [address] Performed By: #### 5 7021-8 ####[facility] LABCLIA [id number] [place] [address] RBC (Bld) [#/Vol] 3.82 10*6/uL Low 4.20-6.00 [facility] Comment on above: Order Comment: Speci men Type: BLOOD SPECIMENOrdering Facility: [facility] Address: [address] [place] [address] Performed By: #### 5 7021-8 ####[facility] LABCLIA [id number] [place] [address] WBC (Bld) [#/Vol] 14.60 10*3/uL High 3.70-11.00 [facility] Comment on above: Order Comment: Speci men Type: BLOOD SPECIMENOrdering Facility: [facility] Address: [address] [place] [address] Performed By: #### 5 7021-8 ####[facility] LABCLIA [id number] [place] [address] CNOVSPon 05-05-2023 CNOVSP Normal [facility] Cancer Ag19-9 SerPl-aCncon 1 07-06-2022 Cancer Ag 19-9 Qn 2059.0 [arb'U]/mL High <36.0 [facility] Comment on above: Order Comment: Speci men Type: BLOOD SPECIMENOrdering Facility: [facility] Address: [place] [address] Result Comment: [facility] er antigen 19-9 test is used as an aid in monitoring response to treatment or recurrence in patients with established pancreatic, hepatobiliary, or gastrointestinal malignancies. Clinical correlation is required.The CA 19-9 Antigen test was performed using the [employer] Un[employer]el DXI paramagnetic particle chemiluminescent immunoassay method. Results obtained with different assay methods or kits cannot be used interchangeably. Performed By: #### 2 4108-3 ####[facility] LABCLIA [id number] [place] [id number] [place] Comprehensive metabolic 2000 panelon 05-05-2023 Albumin [Mass/Vol] 4.3 g/dL 3.9 - 4.9 g/dL [facility] ALP [Catalytic activity/Vol] 131 U/L High 38 - 113 U/L [facility] ALT [Catalytic activity/Vol] 26 U/L 10 - 54 U/L [facility] Anion gap [Moles/Vol] 10 mmol/L 9 - 18 mmol/L [facility] AST [Catalytic activity/Vol] 28 U/L 14 - 40 U/L [facility] Bilirubin [Mass/Vol] 1.3 mg/dL 0.2 - 1 .3 mg/dL [facility] Calcium [Mass/Vol] 11.1 mg/dL High 8.5 - 10. 2 mg/dL [facility] Chloride [Moles/Vol] 101 mmol/L 97 - 10 5 mmol/L [facility] CO2 [Moles/Vol] 24 mmol/L 22 - 30 mmol/L [facility] Creatinine [Mass/Vol] 0.87 mg/dL 0.73 - 1.22 mg/dL [facility] Estimated Glomerular Filtration Rate 92 mL/min/1.73m >=60 mL/min/1.73 m [facility] Glucose [Mass/Vol] 154 mg/dL High 74 - 99 mg/dL [facility] Potassium [Moles/Vol] 4.3 mmol/L 3.7 - 5.1 mmol/L [facility] Protein [Mass/Vol] 7.5 g/dL 6.3 - 8.0 g/dL [facility] Sodium [Moles/Vol] 135 mmol/L Low 136 - 144 mmol/L [facility] Urea nitrogen [Mass/Vol] 19 mg/dL 9 - 24 mg/dL [facility] Albumin [Mass/Vol] 4.3 g/dL Normal 3.9-4.9 [facility] Comment on above: Order Comment: Speci men Type: BLOOD SPECIMENOrdering Facility: [facility] Address: [address] [place] [address] Performed By: #### 2 4323-8 ####[facility] LABCLIA [id number] [place] [address] ALP [Catalytic activity/Vol] 131 U/L High 38-113 [facility] Comment on above: Order Comment: Speci men Type: BLOOD SPECIMENOrdering Facility: [facility] Address: [address] [place] [address] Performed By: #### 2 4323-8 ####[facility] LABCLIA [id number] [place] [address] ALT [Catalytic activity/Vol] 26 U/L Normal 10-54 [facility] Comment on above: Order Comment: Speci men Type: BLOOD SPECIMENOrdering Facility: [facility] Address: [address] [place] [address] Performed By: #### 2 4323-8 ####[facility] LABCLIA [id number] [place] [address] Anion gap [Moles/Vol] 10 mmol/L Normal 9-18 [facility] Comment on above: Order Comment: Speci men Type: BLOOD SPECIMENOrdering Facility: [facility] Address: [address] [place] [address] Performed By: #### 2 4323-8 ####[facility] LABCLIA [id number] [place] [address] AST [Catalytic activity/Vol] 28 U/L Normal 14-40 [facility] Comment on above: Order Comment: Speci men Type: BLOOD SPECIMENOrdering Facility: [facility] Address: [address] [place] [address] Performed By: #### 2 4323-8 ####[facility] LABCLIA [id number] [place] [address] Bilirubin [Mass/Vol] 1.3 mg/dL Normal 0.2-1.3 [facility] Comment on above: Order Comment: Speci men Type: BLOOD SPECIMENOrdering Facility: [facility] Address: [address] [place] [address] Performed By: #### 2 4323-8 ####[facility] LABCLIA [id number] [place] [address] Calcium [Mass/Vol] 11.1 mg/dL High 8.5-10.2 [facility] Comment on above: Order Comment: Speci men Type: BLOOD SPECIMENOrdering Facility: [facility] Address: [address] [place] [address] Performed By: #### 2 4323-8 ####[facility] LABCLIA [id number] [place] [address] Chloride [Moles/Vol] 101 mmol/L Normal 97-105 [facility] Comment on above: Order Comment: Speci men Type: BLOOD SPECIMENOrdering Facility: [facility] Address: [address] [place] [address] Performed By: #### 2 4323-8 ####[facility] LABCLIA [id number] [place] [address] CO2 [Moles/Vol] 24 mmol/L Normal 22-30 [facility] Comment on above: Order Comment: Speci men Type: BLOOD SPECIMENOrdering Facility: [facility] Address: [address] [place] [address] Performed By: #### 2 4323-8 ####[facility] LABCLIA [id number] [place] [address] Creatinine [Mass/Vol] 0.87 mg/dL Normal 0.73-1.22 [facility] Comment on above: Order Comment: Speci men Type: BLOOD SPECIMENOrdering Facility: [facility] Address: [address] [place] [address] Performed By: #### 2 4323-8 ####[facility] LABCLIA [id number] [place] [address] Creatinine and Glomerular filtration rate.predicted panel (S/P/Bld) 92 mL/min/1.73m??? Normal >=60 [facility] Comment on above: Order Comment: Speci men Type: BLOOD SPECIMENOrdering Facility: [facility] Address: [address] [place] [address] Result Comment: Kathy mated Glomerular Filtration Rate [...] actual GFR. Performed By: #### 2 4323-8 ####[facility] LABCLIA [id number] [place] [address] Glucose [Mass/Vol] 154 mg/dL High 74-99 [facility] Comment on above: Order Comment: Speci men Type: BLOOD SPECIMENOrdering Facility: [facility] Address: [address] [place] [id number] Result Comment: The [place] Diabetes Association (ADA) provides guidance for cutoff [...] Standards of Medical Care in Diabetes 2016, [place] [employer]. Diabetes Care. 2016.39(Suppl 1). Performed By: #### 2 4323-8 ####[facility] LABCLIA [id number] [place] [address] Potassium [Moles/Vol] 4.3 mmol/L Normal 3.7-5.1 [facility] Comment on above: Order Comment: Speci men Type: BLOOD SPECIMENOrdering Facility: [facility] Address: [address] [place] [address] Performed By: #### 2 4323-8 ####[facility] LABCLIA [id number] [place] [address] Protein [Mass/Vol] 7.5 g/dL Normal 6.3-8.0 [facility] Comment on above: Order Comment: Speci men Type: BLOOD SPECIMENOrdering Facility: [facility] Address: [address] [place] [address] Performed By: #### 2 4323-8 ####[facility] LABCLIA [id number] [place] [address] Sodium [Moles/Vol] 135 mmol/L Low 136-144 [facility] Comment on above: Order Comment: Speci men Type: BLOOD SPECIMENOrdering Facility: [facility] Address: [address] [place] [address] Performed By: #### 2 4323-8 ####[facility] LABCLIA [id number] [place] [address] Urea nitrogen [Mass/Vol] 19 mg/dL Normal 9-24 [facility] Comment on above: Order Comment: Speci men Type: BLOOD SPECIMENOrdering Facility: [facility] Address: [address] [place], [place] [address] Performed By: #### 2 4323-8 ####[facility] LABCLIA [id number] [place] [address] CNPNon 2023 CNPN Normal [facility] CBC W Auto Differential pane l (Bld)on 04-05-2023 Basophils (Bld) [#/Vol] 0.05 10*3/uL <0.11 k/uL [facility] Basophils/100 WBC (Bld) 0.5 % [facility] Differential cell count method Nom (Bld) Auto [facility] Eosinophils (Bld) [#/Vol] <0.46 k/uL [facility] Eosinophils/100 WBC (Bld) 0.2 % [facility] Erythrocyte distribution width (RBC) [Ratio] 15.3 % High 11.5 - 15.0 % [facility] Hematocrit (Bld) [Volume fraction] 30.3 % Low 39.0 - 51.0 % [facility] Hemoglobin (Bld) [Mass/Vol] 10.0 g/dL Low 13.0 - 17.0 g/dL [facility] Immature granulocytes (Bld) [#/Vol] 0.04 10*3/uL <0.10 k/uL [facility] Immature granulocytes/100 WBC (Bld) 0.4 % [facility] Lymphocytes (Bld) [#/Vol] 1.63 10*3/uL 1.00 - 4.00 k/uL [facility] Lymphocytes/100 WBC (Bld) 15.5 % [facility] MCH (RBC) [Entitic mass] 32.3 pg 26.0 - 34.0 pg [facility] MCHC (RBC) [Mass/Vol] 33.0 g/dL 30.5 - 36.0 g/dL [facility] MCV (RBC) [Entitic vol] 97.7 fL 80.0 - 100.0 fL [facility] Monocytes (Bld) [#/Vol] 0.21 10*3/uL <0.87 k/uL [facility] Monocytes/100 WBC (Bld) 2.0 % [facility] Neutrophils (Bld) [#/Vol] 8.60 10*3/uL High 1.45 - 7.50 k/uL [facility] Neutrophils/100 WBC (Bld) 81.4 % [facility] Nucleated RBC (Bld) [#/Vol] <0.01 k/uL [facility] Nucleated RBC/100 WBC (Bld) [Ratio] 0.0 /100 WBC [facility] Platelet mean volume (Bld) [Entitic vol] 9.7 fL 9.0 - 12.7 fL [facility] Platelets (Bld) [#/Vol] 271 10*3/uL 150 - 400 k/uL [facility] RBC (Bld) [#/Vol] 3.10 10*6/uL Low 4.20 - 6.0 0 m/uL [facility] WBC (Bld) [#/Vol] 10.55 10*3/uL 3.70 - 11.00 k/uL [facility] Comprehensive metabolic 2000 panelon 04-05-2023 Albumin [Mass/Vol] 4.2 g/dL 3.9 - 4.9 g/dL [facility] ALP [Catalytic activity/Vol] 112 U/L 38 - 113 U/L [facility] ALT [Catalytic activity/Vol] 18 U/L 10 - 54 U/L [facility] Anion gap [Moles/Vol] 8 mmol/L Low 9 - 18 mmol/L [facility] AST [Catalytic activity/Vol] 21 U/L 14 - 40 U/L [facility] Bilirubin [Mass/Vol] 1.2 mg/dL 0.2 - 1 .3 mg/dL [facility] Calcium [Mass/Vol] 10.9 mg/dL High 8.5 - 10. 2 mg/dL [facility] Chloride [Moles/Vol] 101 mmol/L 97 - 10 5 mmol/L [facility] CO2 [Moles/Vol] 25 mmol/L 22 - 30 mmol/L [facility] Creatinine [Mass/Vol] 0.79 mg/dL 0.73 - 1.22 mg/dL [facility] Estimated Glomerular Filtration Rate 95 mL/min/1.73m >=60 mL/min/1.73 m [facility] Glucose [Mass/Vol] 122 mg/dL High 74 - 99 mg/dL [facility] Potassium [Moles/Vol] 4.1 mmol/L 3.7 - 5.1 mmol/L [facility] Protein [Mass/Vol] 7.1 g/dL 6.3 - 8.0 g/dL [facility] Sodium [Moles/Vol] 134 mmol/L Low 136 - 144 mmol/L [facility] Urea nitrogen [Mass/Vol] 21 mg/dL 9 - 24 mg/dL [facility] CBC W Auto Differential pane l (Bld)on 03-08-2023 Basophils (Bld) [#/Vol] 0.04 10*3/uL <0.11 k/uL [facility] Basophils/100 WBC (Bld) 0.9 % [facility] Differential cell count method Nom (Bld) Auto [facility] Eosinophils (Bld) [#/Vol] <0.46 k/uL [facility] Eosinophils/100 WBC (Bld) 0.2 % [facility] Erythrocyte distribution width (RBC) [Ratio] 14.8 % 11.5 - 15.0 % [facility] Hematocrit (Bld) [Volume fraction] 31.4 % Low 39.0 - 51.0 % [facility] Hemoglobin (Bld) [Mass/Vol] 10.2 g/dL Low 13.0 - 17.0 g/dL [facility] Immature granulocytes (Bld) [#/Vol] 0.05 10*3/uL <0.10 k/uL [facility] Immature granulocytes/100 WBC (Bld) 1.1 % [facility] Lymphocytes (Bld) [#/Vol] 1.26 10*3/uL 1.00 - 4.00 k/uL [facility] Lymphocytes/100 WBC (Bld) 28.8 % [facility] MCH (RBC) [Entitic mass] 32.4 pg 26.0 - 34.0 pg [facility] MCHC (RBC) [Mass/Vol] 32.5 g/dL 30.5 - 36.0 g/dL [facility] MCV (RBC) [Entitic vol] 99.7 fL 80.0 - 100.0 fL [facility] Monocytes (Bld) [#/Vol] 0.29 10*3/uL <0.87 k/uL [facility] Monocytes/100 WBC (Bld) 6.6 % [facility] Neutrophils (Bld) [#/Vol] 2.72 10*3/uL 1.45 - 7.50 k/uL [facility] Neutrophils/100 WBC (Bld) 62.4 % [facility] Nucleated RBC (Bld) [#/Vol] <0.01 k/uL [facility] Nucleated RBC/100 WBC (Bld) [Ratio] 0.0 /100 WBC [facility] Platelet mean volume (Bld) [Entitic vol] 9.9 fL 9.0 - 12.7 fL [facility] Platelets (Bld) [#/Vol] 236 10*3/uL 150 - 400 k/uL [facility] RBC (Bld) [#/Vol] 3.15 10*6/uL Low 4.20 - 6.0 0 m/uL [facility] WBC (Bld) [#/Vol] 4.37 10*3/uL 3.70 - 11.00 k/uL [facility] Comprehensive metabolic 2000 panelon 03-08-2023 Albumin [Mass/Vol] 4.2 g/dL 3.9 - 4.9 g/dL [facility] ALP [Catalytic activity/Vol] 128 U/L High 38 - 113 U/L [facility] ALT [Catalytic activity/Vol] 32 U/L 10 - 54 U/L [facility] Anion gap [Moles/Vol] 8 mmol/L Low 9 - 18 mmol/L [facility] AST [Catalytic activity/Vol] 26 U/L 14 - 40 U/L [facility] Bilirubin [Mass/Vol] 1.2 mg/dL 0.2 - 1 .3 mg/dL [facility] Calcium [Mass/Vol] 10.8 mg/dL High 8.5 - 10. 2 mg/dL [facility] Chloride [Moles/Vol] 103 mmol/L 97 - 10 5 mmol/L [facility] CO2 [Moles/Vol] 25 mmol/L 22 - 30 mmol/L [facility] Creatinine [Mass/Vol] 0.94 mg/dL 0.73 - 1.22 mg/dL [facility] Estimated Glomerular Filtration Rate 87 mL/min/1.73m >=60 mL/min/1.73 m [facility] Glucose [Mass/Vol] 138 mg/dL High 74 - 99 mg/dL [facility] Potassium [Moles/Vol] 4.2 mmol/L 3.7 - 5.1 mmol/L [facility] Protein [Mass/Vol] 7.0 g/dL 6.3 - 8.0 g/dL [facility] Sodium [Moles/Vol] 136 mmol/L 136 - 144 mmol/L [facility] Urea nitrogen [Mass/Vol] 15 mg/dL 9 - 24 mg/dL [facility] CBC W Auto Differential pane l (Bld)on 03-01-2023 Basophils (Bld) [#/Vol] 0.04 10*3/uL <0.11 k/uL [facility] Basophils/100 WBC (Bld) 0.5 % [facility] Differential cell count method Nom (Bld) Auto [facility] Eosinophils (Bld) [#/Vol] <0.46 k/uL [facility] Eosinophils/100 WBC (Bld) 0.2 % [facility] Erythrocyte distribution width (RBC) [Ratio] 15.6 % High 11.5 - 15.0 % [facility] Hematocrit (Bld) [Volume fraction] 37.3 % Low 39.0 - 51.0 % [facility] Hemoglobin (Bld) [Mass/Vol] 11.9 g/dL Low 13.0 - 17.0 g/dL [facility] Immature granulocytes (Bld) [#/Vol] 0.07 10*3/uL <0.10 k/uL [facility] Immature granulocytes/100 WBC (Bld) 0.9 % [facility] Lymphocytes (Bld) [#/Vol] 1.45 10*3/uL 1.00 - 4.00 k/uL [facility] Lymphocytes/100 WBC (Bld) 17.9 % [facility] MCH (RBC) [Entitic mass] 32.4 pg 26.0 - 34.0 pg [facility] MCHC (RBC) [Mass/Vol] 31.9 g/dL 30.5 - 36.0 g/dL [facility] MCV (RBC) [Entitic vol] 101.6 fL High 80.0 - 100.0 fL [facility] Monocytes (Bld) [#/Vol] 0.94 10*3/uL High <0.87 k/uL [facility] Monocytes/100 WBC (Bld) 11.6 % [facility] Neutrophils (Bld) [#/Vol] 5.58 10*3/uL 1.45 - 7.50 k/uL [facility] Neutrophils/100 WBC (Bld) 68.9 % [facility] Nucleated RBC (Bld) [#/Vol] <0.01 k/uL [facility] Nucleated RBC/100 WBC (Bld) [Ratio] 0.0 /100 WBC [facility] Platelet mean volume (Bld) [Entitic vol] 9.2 fL 9.0 - 12.7 fL [facility] Platelets (Bld) [#/Vol] 449 10*3/uL High 150 - 400 k/uL [facility] RBC (Bld) [#/Vol] 3.67 10*6/uL Low 4.20 - 6.0 0 m/uL [facility] WBC (Bld) [#/Vol] 8.10 10*3/uL 3.70 - 11.00 k/uL [facility] CBC W Auto Differential pane l (Bld)on 02-01-2023 Basophils (Bld) [#/Vol] <0.11 k/uL [facility] Basophils/100 WBC (Bld) 0.2 % [facility] Differential cell count method Nom (Bld) Auto [facility] Eosinophils (Bld) [#/Vol] <0.46 k/uL [facility] Eosinophils/100 WBC (Bld) 0.2 % [facility] Erythrocyte distribution width (RBC) [Ratio] 14.3 % 11.5 - 15.0 % [facility] Hematocrit (Bld) [Volume fraction] 35.3 % Low 39.0 - 51.0 % [facility] Hemoglobin (Bld) [Mass/Vol] 11.7 g/dL Low 13.0 - 17.0 g/dL [facility] Immature granulocytes (Bld) [#/Vol] 0.05 10*3/uL <0.10 k/uL [facility] Immature granulocytes/100 WBC (Bld) 0.4 % [facility] Lymphocytes (Bld) [#/Vol] 1.68 10*3/uL 1.00 - 4.00 k/uL [facility] Lymphocytes/100 WBC (Bld) 14.6 % [facility] MCH (RBC) [Entitic mass] 32.4 pg 26.0 - 34.0 pg [facility] MCHC (RBC) [Mass/Vol] 33.1 g/dL 30.5 - 36.0 g/dL [facility] MCV (RBC) [Entitic vol] 97.8 fL 80.0 - 100.0 fL [facility] Monocytes (Bld) [#/Vol] 0.70 10*3/uL <0.87 k/uL [facility] Monocytes/100 WBC (Bld) 6.1 % [facility] Neutrophils (Bld) [#/Vol] 9.04 10*3/uL High 1.45 - 7.50 k/uL [facility] Neutrophils/100 WBC (Bld) 78.5 % [facility] Nucleated RBC (Bld) [#/Vol] <0.01 k/uL [facility] Nucleated RBC/100 WBC (Bld) [Ratio] 0.0 /100 WBC [facility] Platelet mean volume (Bld) [Entitic vol] 10.1 fL 9.0 - 12.7 fL [facility] Platelets (Bld) [#/Vol] 267 10*3/uL 150 - 400 k/uL [facility] RBC (Bld) [#/Vol] 3.61 10*6/uL Low 4.20 - 6.0 0 m/uL [facility] WBC (Bld) [#/Vol] 11.51 10*3/uL High 3.70 - 11.00 k/uL [facility] Comprehensive metabolic 2000 panelon 02-01-2023 Albumin [Mass/Vol] 4.2 g/dL 3.9 - 4.9 g/dL [facility] ALP [Catalytic activity/Vol] 139 U/L High 38 - 113 U/L [facility] ALT [Catalytic activity/Vol] 23 U/L 10 - 54 U/L [facility] Anion gap [Moles/Vol] 11 mmol/L 9 - 18 mmol/L [facility] AST [Catalytic activity/Vol] 19 U/L 14 - 40 U/L [facility] Bilirubin [Mass/Vol] 1.3 mg/dL 0.2 - 1 .3 mg/dL [facility] Calcium [Mass/Vol] 10.7 mg/dL High 8.5 - 10. 2 mg/dL [facility] Chloride [Moles/Vol] 102 mmol/L 97 - 10 5 mmol/L [facility] CO2 [Moles/Vol] 23 mmol/L 22 - 30 mmol/L [facility] Creatinine [Mass/Vol] 0.97 mg/dL 0.73 - 1.22 mg/dL [facility] Estimated Glomerular Filtration Rate 83 mL/min/1.73m >=60 mL/min/1.73 m [facility] Glucose [Mass/Vol] 172 mg/dL High 74 - 99 mg/dL [facility] Potassium [Moles/Vol] 4.4 mmol/L 3.7 - 5.1 mmol/L [facility] Protein [Mass/Vol] 7.2 g/dL 6.3 - 8.0 g/dL [facility] Sodium [Moles/Vol] 136 mmol/L 136 - 144 mmol/L [facility] Urea nitrogen [Mass/Vol] 22 mg/dL 9 - 24 mg/dL [facility] CT cervical spine wo conon 0 12-15-2022 CT cervical spine wo con [facility] [place] [address] CT Scan Report Signed Patient: Trinity Perry MR#: [id number] [birth year] : 1950 Acct:[id number] Age/Sex: 72 / M ADM Date: 12/15/22 Loc: ER Room: Type: PRE ER Attending Dr: Copies to: Jemma Padilla APRN Ordering Provider: Jemma Padilla APRN Date of Service: 12/15/22 CT/CT head/brain wo con: injury ([id number]) CT/CT cervical spine wo con: fall CT [...] FRACTURE Impression dictated by: Ronnie Saldaña Jr., DKristieOKristie12/15/2022 3:56 PM Dictation Location: [place] [address] Transcribed By: [facility] 12/15/22 1556 Dictated By: Ronnie Saldaña Jr, DO 12/15/22 1551 Signed By: 12/15/22 1556 Normal [facility] CBC W Auto Differential pane l (Bld)on 12-14-2022 Basophils (Bld) [#/Vol] 0.03 10*3/uL <0.11 k/uL [facility] Basophils/100 WBC (Bld) 0.5 % [facility] Differential cell count method Nom (Bld) Auto [facility] Eosinophils (Bld) [#/Vol] <0.46 k/uL [facility] Eosinophils/100 WBC (Bld) 0.2 % [facility] Erythrocyte distribution width (RBC) [Ratio] 19.2 % High 11.5 - 15.0 % [facility] Hematocrit (Bld) [Volume fraction] 33.4 % Low 39.0 - 51.0 % [facility] Hemoglobin (Bld) [Mass/Vol] 10.5 g/dL Low 13.0 - 17.0 g/dL [facility] Immature granulocytes (Bld) [#/Vol] <0.10 k/uL [facility] Immature granulocytes/100 WBC (Bld) 0.3 % [facility] Lymphocytes (Bld) [#/Vol] 1.25 10*3/uL 1.00 - 4.00 k/uL [facility] Lymphocytes/100 WBC (Bld) 19.1 % [facility] MCH (RBC) [Entitic mass] 32.0 pg 26.0 - 34.0 pg [facility] MCHC (RBC) [Mass/Vol] 31.4 g/dL 30.5 - 36.0 g/dL [facility] MCV (RBC) [Entitic vol] 101.8 fL High 80.0 - 100.0 fL [facility] Monocytes (Bld) [#/Vol] 0.56 10*3/uL <0.87 k/uL [facility] Monocytes/100 WBC (Bld) 8.6 % [facility] Neutrophils (Bld) [#/Vol] 4.67 10*3/uL 1.45 - 7.50 k/uL [facility] Neutrophils/100 WBC (Bld) 71.3 % [facility] Nucleated RBC (Bld) [#/Vol] <0.01 k/uL [facility] Nucleated RBC/100 WBC (Bld) [Ratio] 0.0 /100 WBC [facility] Platelet mean volume (Bld) [Entitic vol] 9.3 fL 9.0 - 12.7 fL [facility] Platelets (Bld) [#/Vol] 362 10*3/uL 150 - 400 k/uL [facility] RBC (Bld) [#/Vol] 3.28 10*6/uL Low 4.20 - 6.0 0 m/uL [facility] WBC (Bld) [#/Vol] 6.54 10*3/uL 3.70 - 11.00 k/uL [facility] Comprehensive metabolic 2000 panelon 12-14-2022 Albumin [Mass/Vol] 3.8 g/dL Low 3.9 - 4.9 g/dL [facility] ALP [Catalytic activity/Vol] 138 U/L High 38 - 113 U/L [facility] ALT [Catalytic activity/Vol] 25 U/L 10 - 54 U/L [facility] Anion gap [Moles/Vol] 8 mmol/L Low 9 - 18 mmol/L [facility] AST [Catalytic activity/Vol] 22 U/L 14 - 40 U/L [facility] Bilirubin [Mass/Vol] 0.9 mg/dL 0.2 - 1 .3 mg/dL [facility] Calcium [Mass/Vol] 10.5 mg/dL High 8.5 - 10. 2 mg/dL [facility] Chloride [Moles/Vol] 104 mmol/L 97 - 10 5 mmol/L [facility] CO2 [Moles/Vol] 24 mmol/L 22 - 30 mmol/L [facility] Creatinine [Mass/Vol] 0.85 mg/dL 0.73 - 1.22 mg/dL [facility] Estimated Glomerular Filtration Rate 93 mL/min/1.73m >=60 mL/min/1.73 m [facility] Glucose [Mass/Vol] 158 mg/dL High 74 - 99 mg/dL [facility] Potassium [Moles/Vol] 4.1 mmol/L 3.7 - 5.1 mmol/L [facility] Protein [Mass/Vol] 7.0 g/dL 6.3 - 8.0 g/dL [facility] Sodium [Moles/Vol] 136 mmol/L 136 - 144 mmol/L [facility] Urea nitrogen [Mass/Vol] 16 mg/dL 9 - 24 mg/dL [facility] CBC W Auto Differential pane l (Bld)on 11-30-2022 Basophils (Bld) [#/Vol] 0.03 10*3/uL <0.11 k/uL [facility] Basophils/100 WBC (Bld) 0.5 % [facility] Differential cell count method Nom (Bld) Auto [facility] Eosinophils (Bld) [#/Vol] <0.46 k/uL [facility] Eosinophils/100 WBC (Bld) 0.3 % [facility] Erythrocyte distribution width (RBC) [Ratio] 14.1 % 11.5 - 15.0 % [facility] Hematocrit (Bld) [Volume fraction] 25.2 % Low 39.0 - 51.0 % [facility] Hemoglobin (Bld) [Mass/Vol] 8.2 g/dL Low 13.0 - 17.0 g/dL [facility] Immature granulocytes (Bld) [#/Vol] 0.07 10*3/uL <0.10 k/uL [facility] Immature granulocytes/100 WBC (Bld) 1.2 % [facility] Lymphocytes (Bld) [#/Vol] 1.86 10*3/uL 1.00 - 4.00 k/uL [facility] Lymphocytes/100 WBC (Bld) 30.9 % [facility] MCH (RBC) [Entitic mass] 31.4 pg 26.0 - 34.0 pg [facility] MCHC (RBC) [Mass/Vol] 32.5 g/dL 30.5 - 36.0 g/dL [facility] MCV (RBC) [Entitic vol] 96.6 fL 80.0 - 100.0 fL [facility] Monocytes (Bld) [#/Vol] 0.26 10*3/uL <0.87 k/uL [facility] Monocytes/100 WBC (Bld) 4.3 % [facility] Neutrophils (Bld) [#/Vol] 3.78 10*3/uL 1.45 - 7.50 k/uL [facility] Neutrophils/100 WBC (Bld) 62.8 % [facility] Nucleated RBC (Bld) [#/Vol] <0.01 k/uL [facility] Nucleated RBC/100 WBC (Bld) [Ratio] 0.0 /100 WBC [facility] Platelet mean volume (Bld) [Entitic vol] 10.0 fL 9.0 - 12.7 fL [facility] Platelets (Bld) [#/Vol] 217 10*3/uL 150 - 400 k/uL [facility] RBC (Bld) [#/Vol] 2.61 10*6/uL Low 4.20 - 6.0 0 m/uL [facility] WBC (Bld) [#/Vol] 6.02 10*3/uL 3.70 - 11.00 k/uL [facility] Comprehensive metabolic 2000 panelon 11-30-2022 Albumin [Mass/Vol] 3.3 g/dL Low 3.9 - 4.9 g/dL [facility] ALP [Catalytic activity/Vol] 121 U/L High 38 - 113 U/L [facility] ALT [Catalytic activity/Vol] 17 U/L 10 - 54 U/L [facility] Anion gap [Moles/Vol] 6 mmol/L Low 9 - 18 mmol/L [facility] AST [Catalytic activity/Vol] 24 U/L 14 - 40 U/L [facility] Bilirubin [Mass/Vol] 1.0 mg/dL 0.2 - 1 .3 mg/dL [facility] Calcium [Mass/Vol] 10.6 mg/dL High 8.5 - 10. 2 mg/dL [facility] Chloride [Moles/Vol] 103 mmol/L 97 - 10 5 mmol/L [facility] CO2 [Moles/Vol] 25 mmol/L 22 - 30 mmol/L [facility] Creatinine [Mass/Vol] 0.80 mg/dL 0.73 - 1.22 mg/dL [facility] Estimated Glomerular Filtration Rate 95 mL/min/1.73m >=60 mL/min/1.73 m [facility] Glucose [Mass/Vol] 273 mg/dL High 74 - 99 mg/dL [facility] Potassium [Moles/Vol] 4.0 mmol/L 3.7 - 5.1 mmol/L [facility] Protein [Mass/Vol] 6.8 g/dL 6.3 - 8.0 g/dL [facility] Sodium [Moles/Vol] 134 mmol/L Low 136 - 144 mmol/L [facility] Urea nitrogen [Mass/Vol] 15 mg/dL 9 - 24 mg/dL [facility] CBC W Auto Differential pane l (Bld)on 11-23-2022 Basophils (Bld) [#/Vol] 0.03 10*3/uL <0.11 k/uL [facility] Basophils/100 WBC (Bld) 0.3 % [facility] Differential cell count method Nom (Bld) Auto [facility] Eosinophils (Bld) [#/Vol] 0.05 10*3/uL <0.46 k/uL [facility] Eosinophils/100 WBC (Bld) 0.5 % [facility] Erythrocyte distribution width (RBC) [Ratio] 13.9 % 11.5 - 15.0 % [facility] Hematocrit (Bld) [Volume fraction] 32.6 % Low 39.0 - 51.0 % [facility] Hemoglobin (Bld) [Mass/Vol] 10.7 g/dL Low 13.0 - 17.0 g/dL [facility] Immature granulocytes (Bld) [#/Vol] 0.04 10*3/uL <0.10 k/uL [facility] Immature granulocytes/100 WBC (Bld) 0.4 % [facility] Lymphocytes (Bld) [#/Vol] 1.57 10*3/uL 1.00 - 4.00 k/uL [facility] Lymphocytes/100 WBC (Bld) 14.5 % [facility] MCH (RBC) [Entitic mass] 31.7 pg 26.0 - 34.0 pg [facility] MCHC (RBC) [Mass/Vol] 32.8 g/dL 30.5 - 36.0 g/dL [facility] MCV (RBC) [Entitic vol] 96.4 fL 80.0 - 100.0 fL [facility] Monocytes (Bld) [#/Vol] 0.77 10*3/uL <0.87 k/uL [facility] Monocytes/100 WBC (Bld) 7.1 % [facility] Neutrophils (Bld) [#/Vol] 8.35 10*3/uL High 1.45 - 7.50 k/uL [facility] Neutrophils/100 WBC (Bld) 77.2 % [facility] Nucleated RBC (Bld) [#/Vol] <0.01 k/uL [facility] Nucleated RBC/100 WBC (Bld) [Ratio] 0.0 /100 WBC [facility] Platelet mean volume (Bld) [Entitic vol] 10.9 fL 9.0 - 12.7 fL [facility] Platelets (Bld) [#/Vol] 269 10*3/uL 150 - 400 k/uL [facility] RBC (Bld) [#/Vol] 3.38 10*6/uL Low 4.20 - 6.0 0 m/uL [facility] WBC (Bld) [#/Vol] 10.81 10*3/uL 3.70 - 11.00 k/uL [facility] Comprehensive metabolic 2000 panelon 11-23-2022 Albumin [Mass/Vol] 3.5 g/dL Low 3.9 - 4.9 g/dL [facility] ALP [Catalytic activity/Vol] 136 U/L High 38 - 113 U/L [facility] ALT [Catalytic activity/Vol] 13 U/L 10 - 54 U/L [facility] Anion gap [Moles/Vol] 9 mmol/L 9 - 18 mmol/L [facility] AST [Catalytic activity/Vol] 13 U/L Low 14 - 40 U/L [facility] Bilirubin [Mass/Vol] 1.0 mg/dL 0.2 - 1 .3 mg/dL [facility] Calcium [Mass/Vol] 10.4 mg/dL High 8.5 - 10. 2 mg/dL [facility] Chloride [Moles/Vol] 101 mmol/L 97 - 10 5 mmol/L [facility] CO2 [Moles/Vol] 23 mmol/L 22 - 30 mmol/L [facility] Creatinine [Mass/Vol] 0.80 mg/dL 0.73 - 1.22 mg/dL [facility] Estimated Glomerular Filtration Rate 95 mL/min/1.73m >=60 mL/min/1.73 m [facility] Glucose [Mass/Vol] 251 mg/dL High 74 - 99 mg/dL [facility] Potassium [Moles/Vol] 4.1 mmol/L 3.7 - 5.1 mmol/L [facility] Protein [Mass/Vol] 7.1 g/dL 6.3 - 8.0 g/dL [facility] Sodium [Moles/Vol] 133 mmol/L Low 136 - 144 mmol/L [facility] Urea nitrogen [Mass/Vol] 15 mg/dL 9 - 24 mg/dL [facility] CBC W Auto Differential pane l (Bld)on 11-10-2022 Basophils (Bld) [#/Vol] 0.03 10*3/uL <0.11 k/uL [facility] Basophils/100 WBC (Bld) 0.4 % [facility] Differential cell count method Nom (Bld) Auto [facility] Eosinophils (Bld) [#/Vol] 0.04 10*3/uL <0.46 k/uL [facility] Eosinophils/100 WBC (Bld) 0.5 % [facility] Erythrocyte distribution width (RBC) [Ratio] 14.2 % 11.5 - 15.0 % [facility] Hematocrit (Bld) [Volume fraction] 37.4 % Low 39.0 - 51.0 % [facility] Hemoglobin (Bld) [Mass/Vol] 12.2 g/dL Low 13.0 - 17.0 g/dL [facility] Immature granulocytes (Bld) [#/Vol] 0.04 10*3/uL <0.10 k/uL [facility] Immature granulocytes/100 WBC (Bld) 0.5 % [facility] Lymphocytes (Bld) [#/Vol] 1.39 10*3/uL 1.00 - 4.00 k/uL [facility] Lymphocytes/100 WBC (Bld) 17.4 % [facility] MCH (RBC) [Entitic mass] 31.6 pg 26.0 - 34.0 pg [facility] MCHC (RBC) [Mass/Vol] 32.6 g/dL 30.5 - 36.0 g/dL [facility] MCV (RBC) [Entitic vol] 96.9 fL 80.0 - 100.0 fL [facility] Monocytes (Bld) [#/Vol] 0.53 10*3/uL <0.87 k/uL [facility] Monocytes/100 WBC (Bld) 6.6 % [facility] Neutrophils (Bld) [#/Vol] 5.97 10*3/uL 1.45 - 7.50 k/uL [facility] Neutrophils/100 WBC (Bld) 74.6 % [facility] Nucleated RBC (Bld) [#/Vol] <0.01 k/uL [facility] Nucleated RBC/100 WBC (Bld) [Ratio] 0.0 /100 WBC [facility] Platelet mean volume (Bld) [Entitic vol] 11.3 fL 9.0 - 12.7 fL [facility] Platelets (Bld) [#/Vol] 254 10*3/uL 150 - 400 k/uL [facility] RBC (Bld) [#/Vol] 3.86 10*6/uL Low 4.20 - 6.0 0 m/uL [facility] WBC (Bld) [#/Vol] 8.00 10*3/uL 3.70 - 11.00 k/uL [facility] Comprehensive metabolic 2000 panelon 11-10-2022 Albumin [Mass/Vol] 4.0 g/dL 3.9 - 4.9 g/dL [facility] ALP [Catalytic activity/Vol] 180 U/L High 38 - 113 U/L [facility] ALT [Catalytic activity/Vol] 26 U/L 10 - 54 U/L [facility] Anion gap [Moles/Vol] 9 mmol/L 9 - 18 mmol/L [facility] AST [Catalytic activity/Vol] 21 U/L 14 - 40 U/L [facility] Bilirubin [Mass/Vol] 0.9 mg/dL 0.2 - 1 .3 mg/dL [facility] Calcium [Mass/Vol] 11.0 mg/dL High 8.5 - 10. 2 mg/dL [facility] Chloride [Moles/Vol] 100 mmol/L 97 - 10 5 mmol/L [facility] CO2 [Moles/Vol] 23 mmol/L 22 - 30 mmol/L [facility] Creatinine [Mass/Vol] 0.77 mg/dL 0.73 - 1.22 mg/dL [facility] Estimated Glomerular Filtration Rate 96 mL/min/1.73m >=60 mL/min/1.73 m [facility] Glucose [Mass/Vol] 782 mg/dL High 74 - 99 mg/dL [facility] Potassium [Moles/Vol] 4.7 mmol/L 3.7 - 5.1 mmol/L [facility] Protein [Mass/Vol] 7.4 g/dL 6.3 - 8.0 g/dL [facility] Sodium [Moles/Vol] 132 mmol/L Low 136 - 144 mmol/L [facility] Urea nitrogen [Mass/Vol] 16 mg/dL 9 - 24 mg/dL [facility] CT Abdomen and Pelvis W [...] any questions regarding this interpretation, please call [phone]. If you are unable to reach us at the number above, please feel free to contact [facility] at [phone]. DIVISION OF RADIOLOGY * * *Final Report* * * DATE OF EXAM: Nov 03 2022 10:35AM [facility] 0530 - CT ABD/PEL W IVCON / [...] enlarged retroperitoneal and central mesenteric lymph nodes. Resident Caregiver measurements are detailed as follows on series [...] chest CT performed will be reported separately. Nitrating Acid Mixer (topogram) images: No additional findings. DIVISION OF RADIOLOGY Provider, [facility] - 11/03/2022 * * *Final Report* * * DATE OF EXAM: Nov 03 2022 10:35AM [facility] 0530 - CT ABD/PEL W IVCON / [...] enlarged retroperitoneal and central mesenteric lymph nodes. Resident Caregiver measurements are detailed as follows on series [...] chest CT performed will be reported separately. Nitrating Acid Mixer (topogram) images: No additional findings. IMPRESSION IMPRESSION: [...] any questions regarding this interpretation, please call [phone]. If you are unable to reach us at the number above, please feel free to contact [facility] at [phone]. [facility] CT Chest W contrast [place] IMPRESSION: [...] any questions regarding this interpretation, please call [phone]. If you are unable to reach us at the number above, please feel free to contact [facility] at [phone]. DIVISION OF RADIOLOGY * * *Final Report* * * DATE OF EXAM: Nov 03 2022 10:35AM [facility] 0539 - CT CHEST W IVCON / [...] for findings related to the upper abdomen. Nitrating Acid Mixer (topogram) images: No additional findings. DIVISION OF RADIOLOGY Provider, [facility] - 11/03/2022 * * *Final Report* * * DATE OF EXAM: Nov 03 2022 10:35AM [facility] 0539 - CT CHEST W IVCON / [...] for findings related to the upper abdomen. Nitrating Acid Mixer (topogram) images: No additional findings. IMPRESSION IMPRESSION: [...] any questions regarding this interpretation, please call [phone]. If you are unable to reach us at the number above, please feel free to contact [facility] at [phone]. [facility] CT Chest W contrast IVOrdere d By: [facility] Provider on 11-03-2022 [facility] No Panel Informationon 11-03 Radiology Study observation (narrative) [facility] CBC W Auto Differential pane l (Bld)on 09-29-2022 Basophils (Bld) [#/Vol] <0.11 k/uL [facility] Basophils/100 WBC (Bld) 0.2 % [facility] Differential cell count method Nom (Bld) Auto [facility] Eosinophils (Bld) [#/Vol] 0.06 10*3/uL <0.46 k/uL [facility] Eosinophils/100 WBC (Bld) 0.7 % [facility] Erythrocyte distribution width (RBC) [Ratio] 14.3 % 11.5 - 15.0 % [facility] Hematocrit (Bld) [Volume fraction] 35.6 % Low 39.0 - 51.0 % [facility] Hemoglobin (Bld) [Mass/Vol] 11.3 g/dL Low 13.0 - 17.0 g/dL [facility] Immature granulocytes (Bld) [#/Vol] <0.10 k/uL [facility] Immature granulocytes/100 WBC (Bld) 0.2 % [facility] Lymphocytes (Bld) [#/Vol] 1.48 10*3/uL 1.00 - 4.00 k/uL [facility] Lymphocytes/100 WBC (Bld) 17.4 % [facility] MCH (RBC) [Entitic mass] 31.1 pg 26.0 - 34.0 pg [facility] MCHC (RBC) [Mass/Vol] 31.7 g/dL 30.5 - 36.0 g/dL [facility] MCV (RBC) [Entitic vol] 98.1 fL 80.0 - 100.0 fL [facility] Monocytes (Bld) [#/Vol] 0.68 10*3/uL <0.87 k/uL [facility] Monocytes/100 WBC (Bld) 8.0 % [facility] Neutrophils (Bld) [#/Vol] 6.24 10*3/uL 1.45 - 7.50 k/uL [facility] Neutrophils/100 WBC (Bld) 73.5 % [facility] Nucleated RBC (Bld) [#/Vol] <0.01 k/uL [facility] Nucleated RBC/100 WBC (Bld) [Ratio] 0.0 /100 WBC [facility] Platelet mean volume (Bld) [Entitic vol] 10.6 fL 9.0 - 12.7 fL [facility] Platelets (Bld) [#/Vol] 260 10*3/uL 150 - 400 k/uL [facility] RBC (Bld) [#/Vol] 3.63 10*6/uL Low 4.20 - 6.0 0 m/uL [facility] WBC (Bld) [#/Vol] 8.50 10*3/uL 3.70 - 11.00 k/uL [facility] Comprehensive metabolic 2000 panelon 09-29-2022 Albumin [Mass/Vol] 4.0 g/dL 3.9 - 4.9 g/dL [facility] ALP [Catalytic activity/Vol] 170 U/L High 38 - 113 U/L [facility] ALT [Catalytic activity/Vol] 23 U/L 10 - 54 U/L [facility] Anion gap [Moles/Vol] 9 mmol/L 9 - 18 mmol/L [facility] AST [Catalytic activity/Vol] 18 U/L 14 - 40 U/L [facility] Bilirubin [Mass/Vol] 1.1 mg/dL 0.2 - 1 .3 mg/dL [facility] Calcium [Mass/Vol] 10.4 mg/dL High 8.5 - 10. 2 mg/dL [facility] Chloride [Moles/Vol] 100 mmol/L 97 - 10 5 mmol/L [facility] CO2 [Moles/Vol] 25 mmol/L 22 - 30 mmol/L [facility] Creatinine [Mass/Vol] 0.75 mg/dL 0.73 - 1.22 mg/dL [facility] Estimated Glomerular Filtration Rate 96 mL/min/1.73m >=60 mL/min/1.73 m [facility] Glucose [Mass/Vol] 377 mg/dL High 74 - 99 mg/dL [facility] Potassium [Moles/Vol] 5.0 mmol/L 3.7 - 5.1 mmol/L [facility] Protein [Mass/Vol] 7.1 g/dL 6.3 - 8.0 g/dL [facility] Sodium [Moles/Vol] 134 mmol/L Low 136 - 144 mmol/L [facility] Urea nitrogen [Mass/Vol] 19 mg/dL 9 - 24 mg/dL [facility] CBC W Auto Differential pane l (Bld)on 08-02-2022 Basophils (Bld) [#/Vol] <0.11 k/uL [facility] Basophils/100 WBC (Bld) 0.2 % [facility] Differential cell count method Nom (Bld) Auto [facility] Eosinophils (Bld) [#/Vol] 0.07 10*3/uL <0.46 k/uL [facility] Eosinophils/100 WBC (Bld) 0.7 % [facility] Erythrocyte distribution width (RBC) [Ratio] 15.3 % High 11.5 - 15.0 % [facility] Hematocrit (Bld) [Volume fraction] 35.3 % Low 39.0 - 51.0 % [facility] Hemoglobin (Bld) [Mass/Vol] 11.5 g/dL Low 13.0 - 17.0 g/dL [facility] Immature granulocytes (Bld) [#/Vol] 0.03 10*3/uL <0.10 k/uL [facility] Immature granulocytes/100 WBC (Bld) 0.3 % [facility] Lymphocytes (Bld) [#/Vol] 1.91 10*3/uL 1.00 - 4.00 k/uL [facility] Lymphocytes/100 WBC (Bld) 20.2 % [facility] MCH (RBC) [Entitic mass] 31.3 pg 26.0 - 34.0 pg [facility] MCHC (RBC) [Mass/Vol] 32.6 g/dL 30.5 - 36.0 g/dL [facility] MCV (RBC) [Entitic vol] 96.2 fL 80.0 - 100.0 fL [facility] Monocytes (Bld) [#/Vol] 0.81 10*3/uL <0.87 k/uL [facility] Monocytes/100 WBC (Bld) 8.6 % [facility] Neutrophils (Bld) [#/Vol] 6.60 10*3/uL 1.45 - 7.50 k/uL [facility] Neutrophils/100 WBC (Bld) 70.0 % [facility] Nucleated RBC (Bld) [#/Vol] <0.01 k/uL [facility] Nucleated RBC/100 WBC (Bld) [Ratio] 0.0 /100 WBC [facility] Platelet mean volume (Bld) [Entitic vol] 10.2 fL 9.0 - 12.7 fL [facility] Platelets (Bld) [#/Vol] 257 10*3/uL 150 - 400 k/uL [facility] RBC (Bld) [#/Vol] 3.67 10*6/uL Low 4.20 - 6.0 0 m/uL [facility] WBC (Bld) [#/Vol] 9.44 10*3/uL 3.70 - 11.00 k/uL [facility] Comprehensive metabolic 2000 panelon 08-02-2022 Albumin [Mass/Vol] 4.2 g/dL 3.9 - 4.9 g/dL [facility] ALP [Catalytic activity/Vol] 140 U/L High 38 - 113 U/L [facility] ALT [Catalytic activity/Vol] 17 U/L 10 - 54 U/L [facility] Anion gap [Moles/Vol] 8 mmol/L Low 9 - 18 mmol/L [facility] AST [Catalytic activity/Vol] 20 U/L 14 - 40 U/L [facility] Bilirubin [Mass/Vol] 1.0 mg/dL 0.2 - 1 .3 mg/dL [facility] Calcium [Mass/Vol] 10.6 mg/dL High 8.5 - 10. 2 mg/dL [facility] Chloride [Moles/Vol] 105 mmol/L 97 - 10 5 mmol/L [facility] CO2 [Moles/Vol] 24 mmol/L 22 - 30 mmol/L [facility] Creatinine [Mass/Vol] 0.81 mg/dL 0.73 - 1.22 mg/dL [facility] Estimated Glomerular Filtration Rate 94 mL/min/1.73m >=60 mL/min/1.73 m [facility] Glucose [Mass/Vol] 151 mg/dL High 74 - 99 mg/dL [facility] Potassium [Moles/Vol] 4.7 mmol/L 3.7 - 5.1 mmol/L [facility] Protein [Mass/Vol] 7.3 g/dL 6.3 - 8.0 g/dL [facility] Sodium [Moles/Vol] 137 mmol/L 136 - 144 mmol/L [facility] Urea nitrogen [Mass/Vol] 18 mg/dL 9 - 24 mg/dL [facility] CT Abdomen and Pelvis W [...] any questions regarding this interpretation, please call [phone]. If you are unable to reach us at the number above, please feel free to contact [facility] at [phone]. DIVISION OF RADIOLOGY * * *Final Report* * * DATE OF EXAM: Jul 27 2022 11:05AM [facility] 0530 - CT ABD/PEL W IVCON / [...] CT scan report for the abdomen findings. Nitrating Acid Mixer (topogram) images: No additional findings. DIVISION OF RADIOLOGY Provider, [facility] - 07/27/2022 * * *Final Report* * * DATE OF EXAM: Jul 27 2022 11:05AM [facility] 0530 - CT ABD/PEL W IVCON / [...] CT scan report for the abdomen findings. Nitrating Acid Mixer (topogram) images: No additional findings. IMPRESSION IMPRESSION: [...] any questions regarding this interpretation, please call [phone]. If you are unable to reach us at the number above, please feel free to contact [facility] at [phone]. [facility] CT Chest W contrast [place] IMPRESSION: [...] any questions regarding this interpretation, please call [phone]. If you are unable to reach us at the number above, please feel free to contact [facility] at [phone]. DIVISION OF RADIOLOGY * * *Final Report* * * DATE OF EXAM: Jul 27 2022 11:05AM [facility] 0539 - CT CHEST W IVCON / [...] CT scan report for the abdomen findings. Nitrating Acid Mixer (topogram) images: No additional findings. DIVISION OF RADIOLOGY Provider, [facility] - 07/27/2022 * * *Final Report* * * DATE OF EXAM: Jul 27 2022 11:05AM [facility] 0539 - CT CHEST W IVCON / [...] CT scan report for the abdomen findings. Nitrating Acid Mixer (topogram) images: No additional findings. IMPRESSION IMPRESSION: [...] any questions regarding this interpretation, please call [phone]. If you are unable to reach us at the number above, please feel free to contact [facility] at [phone]. [facility] CT Chest W contrast IVOrdere d By: [facility] Provider on 07-27-2022 [facility] No Panel Informationon 07-27 Radiology Study observation (narrative) [facility] CBC W Auto Differential pane l (Bld)on 06-29-2022 Basophils (Bld) [#/Vol] 0.03 10*3/uL <0.11 k/uL [facility] Basophils/100 WBC (Bld) 0.3 % [facility] Differential cell count method Nom (Bld) Auto [facility] Eosinophils (Bld) [#/Vol] 0.09 10*3/uL <0.46 k/uL [facility] Eosinophils/100 WBC (Bld) 0.9 % [facility] Erythrocyte distribution width (RBC) [Ratio] 15.3 % High 11.5 - 15.0 % [facility] Hematocrit (Bld) [Volume fraction] 36.8 % Low 39.0 - 51.0 % [facility] Hemoglobin (Bld) [Mass/Vol] 11.7 g/dL Low 13.0 - 17.0 g/dL [facility] Immature granulocytes (Bld) [#/Vol] 0.03 10*3/uL <0.10 k/uL [facility] Immature granulocytes/100 WBC (Bld) 0.3 % [facility] Lymphocytes (Bld) [#/Vol] 2.15 10*3/uL 1.00 - 4.00 k/uL [facility] Lymphocytes/100 WBC (Bld) 20.9 % [facility] MCH (RBC) [Entitic mass] 30.5 pg 26.0 - 34.0 pg [facility] MCHC (RBC) [Mass/Vol] 31.8 g/dL 30.5 - 36.0 g/dL [facility] MCV (RBC) [Entitic vol] 96.1 fL 80.0 - 100.0 fL [facility] Monocytes (Bld) [#/Vol] 1.05 10*3/uL High <0.87 k/uL [facility] Monocytes/100 WBC (Bld) 10.2 % [facility] Neutrophils (Bld) [#/Vol] 6.95 10*3/uL 1.45 - 7.50 k/uL [facility] Neutrophils/100 WBC (Bld) 67.4 % [facility] Nucleated RBC (Bld) [#/Vol] <0.01 k/uL [facility] Nucleated RBC/100 WBC (Bld) [Ratio] 0.0 /100 WBC [facility] Platelet mean volume (Bld) [Entitic vol] 9.8 fL 9.0 - 12.7 fL [facility] Platelets (Bld) [#/Vol] 288 10*3/uL 150 - 400 k/uL [facility] RBC (Bld) [#/Vol] 3.83 10*6/uL Low 4.20 - 6.0 0 m/uL [facility] WBC (Bld) [#/Vol] 10.30 10*3/uL 3.70 - 11.00 k/uL [facility] Comprehensive metabolic 2000 panelon 06-29-2022 Albumin [Mass/Vol] 4.2 g/dL 3.9 - 4.9 g/dL [facility] ALP [Catalytic activity/Vol] 146 U/L High 38 - 113 U/L [facility] ALT [Catalytic activity/Vol] 21 U/L 10 - 54 U/L [facility] Anion gap [Moles/Vol] 8 mmol/L Low 9 - 18 mmol/L [facility] AST [Catalytic activity/Vol] 20 U/L 14 - 40 U/L [facility] Bilirubin [Mass/Vol] 0.9 mg/dL 0.2 - 1 .3 mg/dL [facility] Calcium [Mass/Vol] 10.6 mg/dL High 8.5 - 10. 2 mg/dL [facility] Chloride [Moles/Vol] 100 mmol/L 97 - 10 5 mmol/L [facility] CO2 [Moles/Vol] 25 mmol/L 22 - 30 mmol/L [facility] Creatinine [Mass/Vol] 0.83 mg/dL 0.73 - 1.22 mg/dL [facility] Estimated Glomerular Filtration Rate 94 mL/min/1.73m >=60 mL/min/1.73 m [facility] Glucose [Mass/Vol] 189 mg/dL High 74 - 99 mg/dL [facility] Potassium [Moles/Vol] 4.7 mmol/L 3.7 - 5.1 mmol/L [facility] Protein [Mass/Vol] 7.6 g/dL 6.3 - 8.0 g/dL [facility] Sodium [Moles/Vol] 133 mmol/L Low 136 - 144 mmol/L [facility] Urea nitrogen [Mass/Vol] 21 mg/dL 9 - 24 mg/dL [facility] CBC W Auto Differential pane l (Bld)on 06-01-2022 Basophils (Bld) [#/Vol] 0.05 10*3/uL <0.11 k/uL [facility] Basophils/100 WBC (Bld) 0.6 % [facility] Differential cell count method Nom (Bld) Auto [facility] Eosinophils (Bld) [#/Vol] 0.11 10*3/uL <0.46 k/uL [facility] Eosinophils/100 WBC (Bld) 1.3 % [facility] Erythrocyte distribution width (RBC) [Ratio] 15.9 % High 11.5 - 15.0 % [facility] Hematocrit (Bld) [Volume fraction] 34.6 % Low 39.0 - 51.0 % [facility] Hemoglobin (Bld) [Mass/Vol] 11.0 g/dL Low 13.0 - 17.0 g/dL [facility] Immature granulocytes (Bld) [#/Vol] 0.03 10*3/uL <0.10 k/uL [facility] Immature granulocytes/100 WBC (Bld) 0.4 % [facility] Lymphocytes (Bld) [#/Vol] 1.92 10*3/uL 1.00 - 4.00 k/uL [facility] Lymphocytes/100 WBC (Bld) 22.6 % [facility] MCH (RBC) [Entitic mass] 31.7 pg 26.0 - 34.0 pg [facility] MCHC (RBC) [Mass/Vol] 31.8 g/dL 30.5 - 36.0 g/dL [facility] MCV (RBC) [Entitic vol] 99.7 fL 80.0 - 100.0 fL [facility] Monocytes (Bld) [#/Vol] 0.95 10*3/uL High <0.87 k/uL [facility] Monocytes/100 WBC (Bld) 11.2 % [facility] Neutrophils (Bld) [#/Vol] 5.43 10*3/uL 1.45 - 7.50 k/uL [facility] Neutrophils/100 WBC (Bld) 63.9 % [facility] Nucleated RBC (Bld) [#/Vol] <0.01 k/uL [facility] Nucleated RBC/100 WBC (Bld) [Ratio] 0.0 /100 WBC [facility] Platelet mean volume (Bld) [Entitic vol] 9.9 fL 9.0 - 12.7 fL [facility] Platelets (Bld) [#/Vol] 354 10*3/uL 150 - 400 k/uL [facility] RBC (Bld) [#/Vol] 3.47 10*6/uL Low 4.20 - 6.0 0 m/uL [facility] WBC (Bld) [#/Vol] 8.49 10*3/uL 3.70 - 11.00 k/uL [facility] Comprehensive metabolic 2000 panelon 06-01-2022 Albumin [Mass/Vol] 4.3 g/dL 3.9 - 4.9 g/dL [facility] ALP [Catalytic activity/Vol] 138 U/L High 38 - 113 U/L [facility] ALT [Catalytic activity/Vol] 20 U/L 10 - 54 U/L [facility] Anion gap [Moles/Vol] 7 mmol/L Low 9 - 18 mmol/L [facility] AST [Catalytic activity/Vol] 19 U/L 14 - 40 U/L [facility] Bilirubin [Mass/Vol] 0.5 mg/dL 0.2 - 1 .3 mg/dL [facility] Calcium [Mass/Vol] 10.1 mg/dL 8.5 - 10. 2 mg/dL [facility] Chloride [Moles/Vol] 103 mmol/L 97 - 10 5 mmol/L [facility] CO2 [Moles/Vol] 25 mmol/L 22 - 30 mmol/L [facility] Creatinine [Mass/Vol] 0.76 mg/dL 0.73 - 1.22 mg/dL [facility] Estimated Glomerular Filtration Rate 96 mL/min/1.73m >=60 mL/min/1.73 m [facility] Glucose [Mass/Vol] 179 mg/dL High 74 - 99 mg/dL [facility] Potassium [Moles/Vol] 4.9 mmol/L 3.7 - 5.1 mmol/L [facility] Protein [Mass/Vol] 6.9 g/dL 6.3 - 8.0 g/dL [facility] Sodium [Moles/Vol] 135 mmol/L Low 136 - 144 mmol/L [facility] Urea nitrogen [Mass/Vol] 20 mg/dL 9 - 24 mg/dL [facility] CT Abdomen and Pelvis W [...] any questions regarding this interpretation, please call [phone]. If you are unable to reach us at the number above, please feel free to contact [facility] at [phone]. DIVISION OF RADIOLOGY * * *Final Report* * * DATE OF EXAM: May 25 2022 11:28AM [facility] 0530 - CT ABD/PEL W IVCON / [...] lobar consolidation or pleural effusion is seen. Nitrating Acid Mixer (topogram) images: No additional findings. DIVISION OF RADIOLOGY Provider, [facility] - 05/25/2022 * * *Final Report* * * DATE OF EXAM: May 25 2022 11:28AM [facility] 0530 - CT ABD/PEL W IVCON / [...] lobar consolidation or pleural effusion is seen. Nitrating Acid Mixer (topogram) images: No additional findings. IMPRESSION IMPRESSION: [...] any questions regarding this interpretation, please call [phone]. If you are unable to reach us at the number above, please feel free to contact [facility] at [phone]. [facility] CT Chest W contrast [place] IMPRESSION: [...] any questions regarding this interpretation, please call [phone]. If you are unable to reach us at the number above, please feel free to contact [facility] at [phone]. DIVISION OF RADIOLOGY * * *Final Report* * * DATE OF EXAM: May 25 2022 11:28AM [facility] 0539 - CT CHEST W IVCON / [...] was performed concurrently and is reported separately. Nitrating Acid Mixer (topogram) images: No additional findings. DIVISION OF RADIOLOGY Provider, [facility] - 05/25/2022 * * *Final Report* * * DATE OF EXAM: May 25 2022 11:28AM [facility] 0539 - CT CHEST W IVCON / [...] was performed concurrently and is reported separately. Nitrating Acid Mixer (topogram) images: No additional findings. IMPRESSION IMPRESSION: [...] any questions regarding this interpretation, please call [phone]. If you are unable to reach us at the number above, please feel free to contact [facility] at [phone]. [facility] CT Chest W contrast IVOrdere d By: [facility] Provider on 05-25-2022 [facility] No Panel Informationon 05-25 Radiology Study observation (narrative) [facility] CBC W Auto Differential pane l (Bld)on 05-11-2022 Basophils (Bld) [#/Vol] <0.11 k/uL [facility] Basophils/100 WBC (Bld) 0.3 % [facility] Differential cell count method Nom (Bld) Auto [facility] Eosinophils (Bld) [#/Vol] 0.10 10*3/uL <0.46 k/uL [facility] Eosinophils/100 WBC (Bld) 1.6 % [facility] Erythrocyte distribution width (RBC) [Ratio] 16.8 % High 11.5 - 15.0 % [facility] Hematocrit (Bld) [Volume fraction] 30.7 % Low 39.0 - 51.0 % [facility] Hemoglobin (Bld) [Mass/Vol] 9.5 g/dL Low 13.0 - 17.0 g/dL [facility] Immature granulocytes (Bld) [#/Vol] 0.03 10*3/uL <0.10 k/uL [facility] Immature granulocytes/100 WBC (Bld) 0.5 % [facility] Lymphocytes (Bld) [#/Vol] 1.49 10*3/uL 1.00 - 4.00 k/uL [facility] Lymphocytes/100 WBC (Bld) 24.0 % [facility] MCH (RBC) [Entitic mass] 31.6 pg 26.0 - 34.0 pg [facility] MCHC (RBC) [Mass/Vol] 30.9 g/dL 30.5 - 36.0 g/dL [facility] MCV (RBC) [Entitic vol] 102.0 fL High 80.0 - 100.0 fL [facility] Monocytes (Bld) [#/Vol] 0.79 10*3/uL <0.87 k/uL [facility] Monocytes/100 WBC (Bld) 12.7 % [facility] Neutrophils (Bld) [#/Vol] 3.79 10*3/uL 1.45 - 7.50 k/uL [facility] Neutrophils/100 WBC (Bld) 60.9 % [facility] Nucleated RBC (Bld) [#/Vol] <0.01 k/uL [facility] Nucleated RBC/100 WBC (Bld) [Ratio] 0.0 /100 WBC [facility] Platelet mean volume (Bld) [Entitic vol] 9.9 fL 9.0 - 12.7 fL [facility] Platelets (Bld) [#/Vol] 347 10*3/uL 150 - 400 k/uL [facility] RBC (Bld) [#/Vol] 3.01 10*6/uL Low 4.20 - 6.0 0 m/uL [facility] WBC (Bld) [#/Vol] 6.22 10*3/uL 3.70 - 11.00 k/uL [facility] Comprehensive metabolic 2000 panelon 05-11-2022 Albumin [Mass/Vol] 3.9 g/dL 3.9 - 4.9 g/dL [facility] ALP [Catalytic activity/Vol] 134 U/L High 38 - 113 U/L [facility] ALT [Catalytic activity/Vol] 20 U/L 10 - 54 U/L [facility] Anion gap [Moles/Vol] 7 mmol/L Low 9 - 18 mmol/L [facility] AST [Catalytic activity/Vol] 19 U/L 14 - 40 U/L [facility] Bilirubin [Mass/Vol] 0.6 mg/dL 0.2 - 1 .3 mg/dL [facility] Calcium [Mass/Vol] 9.8 mg/dL 8.5 - 10. 2 mg/dL [facility] Chloride [Moles/Vol] 105 mmol/L 97 - 10 5 mmol/L [facility] CO2 [Moles/Vol] 24 mmol/L 22 - 30 mmol/L [facility] Creatinine [Mass/Vol] 0.71 mg/dL Low 0.73 - 1.22 mg/dL [facility] Estimated Glomerular Filtration Rate 98 mL/min/1.73m >=60 mL/min/1.73 m [facility] Glucose [Mass/Vol] 240 mg/dL High 74 - 99 mg/dL [facility] Potassium [Moles/Vol] 4.6 mmol/L 3.7 - 5.1 mmol/L [facility] Protein [Mass/Vol] 6.5 g/dL 6.3 - 8.0 g/dL [facility] Sodium [Moles/Vol] 136 mmol/L 136 - 144 mmol/L [facility] Urea nitrogen [Mass/Vol] 17 mg/dL 9 - 24 mg/dL [facility] CBC W Auto Differential pane l (Bld)on 04-26-2022 Basophils (Bld) [#/Vol] 0.05 10*3/uL <0.11 k/uL [facility] Basophils/100 WBC (Bld) 0.8 % [facility] Differential cell count method Nom (Bld) Auto [facility] Eosinophils (Bld) [#/Vol] 0.04 10*3/uL <0.46 k/uL [facility] Eosinophils/100 WBC (Bld) 0.6 % [facility] Erythrocyte distribution width (RBC) [Ratio] 15.9 % High 11.5 - 15.0 % [facility] Hematocrit (Bld) [Volume fraction] 26.9 % Low 39.0 - 51.0 % [facility] Hemoglobin (Bld) [Mass/Vol] 8.5 g/dL Low 13.0 - 17.0 g/dL [facility] Immature granulocytes (Bld) [#/Vol] 0.07 10*3/uL <0.10 k/uL [facility] Immature granulocytes/100 WBC (Bld) 1.1 % [facility] Lymphocytes (Bld) [#/Vol] 1.73 10*3/uL 1.00 - 4.00 k/uL [facility] Lymphocytes/100 WBC (Bld) 28.1 % [facility] MCH (RBC) [Entitic mass] 32.2 pg 26.0 - 34.0 pg [facility] MCHC (RBC) [Mass/Vol] 31.6 g/dL 30.5 - 36.0 g/dL [facility] MCV (RBC) [Entitic vol] 101.9 fL High 80.0 - 100.0 fL [facility] Monocytes (Bld) [#/Vol] 0.28 10*3/uL <0.87 k/uL [facility] Monocytes/100 WBC (Bld) 4.5 % [facility] Neutrophils (Bld) [#/Vol] 3.99 10*3/uL 1.45 - 7.50 k/uL [facility] Neutrophils/100 WBC (Bld) 64.9 % [facility] Nucleated RBC (Bld) [#/Vol] <0.01 k/uL [facility] Nucleated RBC/100 WBC (Bld) [Ratio] 0.0 /100 WBC [facility] Platelet mean volume (Bld) [Entitic vol] 9.4 fL 9.0 - 12.7 fL [facility] Platelets (Bld) [#/Vol] 413 10*3/uL High 150 - 400 k/uL [facility] RBC (Bld) [#/Vol] 2.64 10*6/uL Low 4.20 - 6.0 0 m/uL [facility] WBC (Bld) [#/Vol] 6.16 10*3/uL 3.70 - 11.00 k/uL [facility] Comprehensive metabolic 2000 panelon 04-26-2022 Albumin [Mass/Vol] 4.0 g/dL 3.9 - 4.9 g/dL [facility] ALP [Catalytic activity/Vol] 129 U/L High 38 - 113 U/L [facility] ALT [Catalytic activity/Vol] 31 U/L 10 - 54 U/L [facility] Anion gap [Moles/Vol] 8 mmol/L Low 9 - 18 mmol/L [facility] AST [Catalytic activity/Vol] 29 U/L 14 - 40 U/L [facility] Bilirubin [Mass/Vol] 0.7 mg/dL 0.2 - 1 .3 mg/dL [facility] Calcium [Mass/Vol] 10.4 mg/dL High 8.5 - 10. 2 mg/dL [facility] Chloride [Moles/Vol] 103 mmol/L 97 - 10 5 mmol/L [facility] CO2 [Moles/Vol] 25 mmol/L 22 - 30 mmol/L [facility] Creatinine [Mass/Vol] 0.80 mg/dL 0.73 - 1.22 mg/dL [facility] Estimated Glomerular Filtration Rate 95 mL/min/1.73m >=60 mL/min/1.73 m [facility] Glucose [Mass/Vol] 127 mg/dL High 74 - 99 mg/dL [facility] Potassium [Moles/Vol] 4.5 mmol/L 3.7 - 5.1 mmol/L [facility] Protein [Mass/Vol] 6.8 g/dL 6.3 - 8.0 g/dL [facility] Sodium [Moles/Vol] 136 mmol/L 136 - 144 mmol/L [facility] Urea nitrogen [Mass/Vol] 13 mg/dL 9 - 24 mg/dL [facility] CBC W Auto Differential pane l (Bld)on 04-20-2022 Basophils (Bld) [#/Vol] 0.03 10*3/uL <0.11 k/uL [facility] Basophils/100 WBC (Bld) 0.4 % [facility] Differential cell count method Nom (Bld) Auto [facility] Eosinophils (Bld) [#/Vol] 0.10 10*3/uL <0.46 k/uL [facility] Eosinophils/100 WBC (Bld) 1.2 % [facility] Erythrocyte distribution width (RBC) [Ratio] 16.8 % High 11.5 - 15.0 % [facility] Hematocrit (Bld) [Volume fraction] 29.4 % Low 39.0 - 51.0 % [facility] Hemoglobin (Bld) [Mass/Vol] 9.2 g/dL Low 13.0 - 17.0 g/dL [facility] Immature granulocytes (Bld) [#/Vol] 0.05 10*3/uL <0.10 k/uL [facility] Immature granulocytes/100 WBC (Bld) 0.6 % [facility] Lymphocytes (Bld) [#/Vol] 1.46 10*3/uL 1.00 - 4.00 k/uL [facility] Lymphocytes/100 WBC (Bld) 18.0 % [facility] MCH (RBC) [Entitic mass] 32.5 pg 26.0 - 34.0 pg [facility] MCHC (RBC) [Mass/Vol] 31.3 g/dL 30.5 - 36.0 g/dL [facility] MCV (RBC) [Entitic vol] 103.9 fL High 80.0 - 100.0 fL [facility] Monocytes (Bld) [#/Vol] 0.89 10*3/uL High <0.87 k/uL [facility] Monocytes/100 WBC (Bld) 11.0 % [facility] Neutrophils (Bld) [#/Vol] 5.56 10*3/uL 1.45 - 7.50 k/uL [facility] Neutrophils/100 WBC (Bld) 68.8 % [facility] Nucleated RBC (Bld) [#/Vol] <0.01 k/uL [facility] Nucleated RBC/100 WBC (Bld) [Ratio] 0.0 /100 WBC [facility] Platelet mean volume (Bld) [Entitic vol] 9.5 fL 9.0 - 12.7 fL [facility] Platelets (Bld) [#/Vol] 363 10*3/uL 150 - 400 k/uL [facility] RBC (Bld) [#/Vol] 2.83 10*6/uL Low 4.20 - 6.0 0 m/uL [facility] WBC (Bld) [#/Vol] 8.09 10*3/uL 3.70 - 11.00 k/uL [facility] Comprehensive metabolic 2000 panelon 04-20-2022 Albumin [Mass/Vol] 3.9 g/dL 3.9 - 4.9 g/dL [facility] ALP [Catalytic activity/Vol] 138 U/L High 38 - 113 U/L [facility] ALT [Catalytic activity/Vol] 18 U/L 10 - 54 U/L [facility] Anion gap [Moles/Vol] 8 mmol/L Low 9 - 18 mmol/L [facility] AST [Catalytic activity/Vol] 18 U/L 14 - 40 U/L [facility] Bilirubin [Mass/Vol] 0.7 mg/dL 0.2 - 1 .3 mg/dL [facility] Calcium [Mass/Vol] 9.7 mg/dL 8.5 - 10. 2 mg/dL [facility] Chloride [Moles/Vol] 103 mmol/L 97 - 10 5 mmol/L [facility] CO2 [Moles/Vol] 24 mmol/L 22 - 30 mmol/L [facility] Creatinine [Mass/Vol] 0.73 mg/dL 0.73 - 1.22 mg/dL [facility] Estimated Glomerular Filtration Rate 98 mL/min/1.73m >=60 mL/min/1.73 m [facility] Glucose [Mass/Vol] 107 mg/dL High 74 - 99 mg/dL [facility] Potassium [Moles/Vol] 4.8 mmol/L 3.7 - 5.1 mmol/L [facility] Protein [Mass/Vol] 6.6 g/dL 6.3 - 8.0 g/dL [facility] Sodium [Moles/Vol] 135 mmol/L Low 136 - 144 mmol/L [facility] Urea nitrogen [Mass/Vol] 16 mg/dL 9 - 24 mg/dL [facility] Comprehensive metabolic 2000 panelon 04-06-2022 Albumin [Mass/Vol] 4.1 g/dL 3.9 - 4.9 g/dL [facility] ALP [Catalytic activity/Vol] 155 U/L High 38 - 113 U/L [facility] ALT [Catalytic activity/Vol] 38 U/L 10 - 54 U/L [facility] Anion gap [Moles/Vol] 8 mmol/L Low 9 - 18 mmol/L [facility] AST [Catalytic activity/Vol] 32 U/L 14 - 40 U/L [facility] Bilirubin [Mass/Vol] 0.7 mg/dL 0.2 - 1 .3 mg/dL [facility] Calcium [Mass/Vol] 9.9 mg/dL 8.5 - 10. 2 mg/dL [facility] Chloride [Moles/Vol] 106 mmol/L High 97 - 10 5 mmol/L [facility] CO2 [Moles/Vol] 26 mmol/L 22 - 30 mmol/L [facility] Creatinine [Mass/Vol] 0.74 mg/dL 0.73 - 1.22 mg/dL [facility] Estimated Glomerular Filtration Rate 97 mL/min/1.73m >=60 mL/min/1.73 m [facility] Glucose [Mass/Vol] 160 mg/dL High 74 - 99 mg/dL [facility] Potassium [Moles/Vol] 5.0 mmol/L 3.7 - 5.1 mmol/L [facility] Protein [Mass/Vol] 6.8 g/dL 6.3 - 8.0 g/dL [facility] Sodium [Moles/Vol] 140 mmol/L 136 - 144 mmol/L [facility] Urea nitrogen [Mass/Vol] 14 mg/dL 9 - 24 mg/dL [facility] CBC W Auto Differential pane l (Bld)on 03-16-2022 Basophils (Bld) [#/Vol] 0.04 10*3/uL <0.11 k/uL [facility] Basophils/100 WBC (Bld) 1.1 % [facility] Differential cell count method Nom (Bld) Auto [facility] Eosinophils (Bld) [#/Vol] 0.04 10*3/uL <0.46 k/uL [facility] Eosinophils/100 WBC (Bld) 1.1 % [facility] Erythrocyte distribution width (RBC) [Ratio] 14.4 % 11.5 - 15.0 % [facility] Hematocrit (Bld) [Volume fraction] 25.4 % Low 39.0 - 51.0 % [facility] Hemoglobin (Bld) [Mass/Vol] 8.5 g/dL Low 13.0 - 17.0 g/dL [facility] Immature granulocytes (Bld) [#/Vol] <0.10 k/uL [facility] Immature granulocytes/100 WBC (Bld) 0.5 % [facility] Lymphocytes (Bld) [#/Vol] 1.38 10*3/uL 1.00 - 4.00 k/uL [facility] Lymphocytes/100 WBC (Bld) 37.9 % [facility] MCH (RBC) [Entitic mass] 33.7 pg 26.0 - 34.0 pg [facility] MCHC (RBC) [Mass/Vol] 33.5 g/dL 30.5 - 36.0 g/dL [facility] MCV (RBC) [Entitic vol] 100.8 fL High 80.0 - 100.0 fL [facility] Monocytes (Bld) [#/Vol] 0.28 10*3/uL <0.87 k/uL [facility] Monocytes/100 WBC (Bld) 7.7 % [facility] Neutrophils (Bld) [#/Vol] 1.88 10*3/uL 1.45 - 7.50 k/uL [facility] Neutrophils/100 WBC (Bld) 51.7 % [facility] Nucleated RBC (Bld) [#/Vol] <0.01 k/uL [facility] Nucleated RBC/100 WBC (Bld) [Ratio] 0.0 /100 WBC [facility] Platelet mean volume (Bld) [Entitic vol] 10.1 fL 9.0 - 12.7 fL [facility] Platelets (Bld) [#/Vol] 174 10*3/uL 150 - 400 k/uL [facility] RBC (Bld) [#/Vol] 2.52 10*6/uL Low 4.20 - 6.0 0 m/uL [facility] WBC (Bld) [#/Vol] 3.64 10*3/uL Low 3.70 - 11.00 k/uL [facility] Comprehensive metabolic 2000 panelon 03-16-2022 Albumin [Mass/Vol] 4.0 g/dL 3.9 - 4.9 g/dL [facility] ALP [Catalytic activity/Vol] 153 U/L High 38 - 113 U/L [facility] ALT [Catalytic activity/Vol] 27 U/L 10 - 54 U/L [facility] Anion gap [Moles/Vol] 5 mmol/L Low 9 - 18 mmol/L [facility] AST [Catalytic activity/Vol] 22 U/L 14 - 40 U/L [facility] Bilirubin [Mass/Vol] 1.0 mg/dL 0.2 - 1 .3 mg/dL [facility] Calcium [Mass/Vol] 10.0 mg/dL 8.5 - 10. 2 mg/dL [facility] Chloride [Moles/Vol] 103 mmol/L 97 - 10 5 mmol/L [facility] CO2 [Moles/Vol] 26 mmol/L 22 - 30 mmol/L [facility] Creatinine [Mass/Vol] 0.73 mg/dL 0.73 - 1.22 mg/dL [facility] Estimated Glomerular Filtration Rate 98 mL/min/1.73m >=60 mL/min/1.73 m [facility] Glucose [Mass/Vol] 125 mg/dL High 74 - 99 mg/dL [facility] Potassium [Moles/Vol] 4.5 mmol/L 3.7 - 5.1 mmol/L [facility] Protein [Mass/Vol] 6.7 g/dL 6.3 - 8.0 g/dL [facility] Sodium [Moles/Vol] 134 mmol/L Low 136 - 144 mmol/L [facility] Urea nitrogen [Mass/Vol] 16 mg/dL 9 - 24 mg/dL [facility] CA 19-9 BLDon 03-08-2022 Cancer Ag 19-9 Qn 442.0 [arb'U]/mL High NINF - 36.0 U/mL [facility] Comment on above: Cancer antigen 19-9 test is used as an aid in monitoring response to treatment or recurrence in patients with established pancreatic, hepatobiliary, or gastrointestinal malignancies. Clinical correlation is required. The CA 19-9 Antigen test was performed using the [employer] DXI paramagnetic particle chemiluminescent immunoassay method. Results obtained with different assay methods or kits cannot be used interchangeably. Cancer Ag 19-9 Qnon 03-08-20 Interpretation and review of laboratory results Abnormal [facility] CBC W Auto Differential pane l (Bld)on 03-07-2022 Basophils (Bld) [#/Vol] 0.03 10*3/uL [facility] Basophils/100 WBC (Bld) 0.3 % [facility] Differential cell count method Nom (Bld) Auto [facility] Eosinophils (Bld) [#/Vol] 0.09 10*3/uL [facility] Eosinophils/100 WBC (Bld) 0.8 % [facility] Erythrocyte distribution width (RBC) [Ratio] 14.6 % 11.5 - 15.0 % [facility] Hematocrit (Bld) [Volume fraction] 33.4 % Low 39.0 - 51.0 % [facility] Hemoglobin (Bld) [Mass/Vol] 11.0 g/dL Low 13.0 - 17.0 g/dL [facility] Immature granulocytes (Bld) [#/Vol] 0.03 10*3/uL [facility] Immature granulocytes/100 WBC (Bld) 0.3 % [facility] Interpretation and review of laboratory results Abnormal [facility] Lymphocytes (Bld) [#/Vol] 1.76 10*3/uL [facility] Lymphocytes/100 WBC (Bld) 16.4 % [facility] MCH (RBC) [Entitic mass] 33.1 pg 26.0 - 34.0 pg [facility] MCHC (RBC) [Mass/Vol] 32.9 g/dL 30.5 - 36.0 g/dL [facility] MCV (RBC) [Entitic vol] 100.6 fL High 80.0 - 100.0 fL [facility] Monocytes (Bld) [#/Vol] 0.69 10*3/uL NINF [facility] Monocytes/100 WBC (Bld) 6.4 % [facility] Neutrophils (Bld) [#/Vol] 8.16 10*3/uL High [facility] Neutrophils/100 WBC (Bld) 75.8 % [facility] Nucleated RBC (Bld) [#/Vol] NINF [facility] Nucleated RBC/100 WBC (Bld) [Ratio] 0.0 % /100 WBC [facility] Platelet mean volume (Bld) [Entitic vol] 9.5 fL 9.0 - 12.7 fL [facility] Platelets (Bld) [#/Vol] 257 10*3/uL [facility] RBC (Bld) [#/Vol] 3.32 10*6/uL Low 4.20 - 6.0 0 m/uL [facility] WBC (Bld) [#/Vol] 10.76 10*3/uL [facility] This is an appended report. These results have been appended to a previously verified report. [facility] CT Chest W contrast Kodi IMPRESSION: [...] any questions regarding this interpretation, please call [phone]. If you are unable to reach us at the number above, please feel free to contact [facility] at [phone]. DIVISION OF RADIOLOGY * * *Final Report* * * DATE OF EXAM: Mar 07 2022 11:25AM [facility] 0539 - CT CHEST W IVCON / [...] on recently performed CT of the abdomen. Nitrating Acid Mixer (topogram) images: No additional findings. DIVISION OF RADIOLOGY Provider, Angélica Mckeon - 03/07/2022 * * *Final Report* * * DATE OF EXAM: Mar 07 2022 11:25AM [facility] 0539 - CT CHEST W IVCON / [...] on recently performed CT of the abdomen. Nitrating Acid Mixer (topogram) images: No additional findings. IMPRESSION IMPRESSION: [...] any questions regarding this interpretation, please call [phone]. If you are unable to reach us at the number above, please feel free to contact [facility] at [phone]. [facility] Radiology Study observation (narrative) [facility] CT Chest W contrast IVOrdere d By: Ccf Provider on 03-07-2022 [facility] Comprehensive metabolic 2000 panelOrdered By: Je Elias on 03-07-2022 Albumin [Mass/Vol] 4.1 g/dL 3.9 - 4.9 g/dL [facility] ALP [Catalytic activity/Vol] 160 U/L High 38 - 113 U/L [facility] ALT [Catalytic activity/Vol] 20 U/L 10 - 54 U/L [facility] Anion gap [Moles/Vol] 8 mmol/L Low 9 - 18 mmol/L [facility] AST [Catalytic activity/Vol] 20 U/L 14 - 40 U/L [facility] Bilirubin [Mass/Vol] 1.1 mg/dL 0.2 - 1 .3 mg/dL [facility] Calcium [Mass/Vol] 10.1 mg/dL 8.5 - 10. 2 mg/dL [facility] Chloride [Moles/Vol] 102 mmol/L 97 - 10 5 mmol/L [facility] CO2 [Moles/Vol] 26 mmol/L 22 - 30 mmol/L [facility] Creatinine [Mass/Vol] 0.72 mg/dL Low 0.73 - 1.22 mg/dL [facility] GFR/1.73 sq M.predicted among non-blacks MDRD (S/P/Bld) [Vol rate/Area] 98 mL/min/{1.73_m2} - PINF [facility] Comment on above: Estimated Glomerular Filtration [...] 113 mg/dL High 74 - 99 mg/dL [facility] Comment on above: The [place] Diabete s Association (ADA) provides guidance for [...] Standards of Medical Care in Diabetes 2016, [place] Diabetes Association. Diabetes Care. 2016.39(Suppl 1). Interpretation and review of laboratory results Abnormal [facility] Potassium [Moles/Vol] 4.6 mmol/L 3.7 - 5.1 mmol/L [facility] Protein [Mass/Vol] 7.0 g/dL 6.3 - 8.0 g/dL [facility] Sodium [Moles/Vol] 136 mmol/L 136 - 144 mmol/L [facility] Urea nitrogen [Mass/Vol] 18 mg/dL 9 - 24 mg/dL [facility] CREATININE BLDOrdered By: Marianne Bee on 02-15-2022 Creatinine [Mass/Vol] 0.74 mg/dL 0.73 - 1.22 mg/dL [facility] GFR/1.73 sq M.predicted among non-blacks MDRD (S/P/Bld) [Vol rate/Area] 97 mL/min/{1.73_m2} - PINF [facility] Comment on above: Estimated Glomerular Filtration [...] Interpretation and review of laboratory results Normal [facility] CT Pancreas W contrast Kodi 02-15-2022 [...] any questions regarding this interpretation, please call [phone]. If you are unable to reach us at the number above, please feel free to contact [facility] at [phone]. DIVISION OF RADIOLOGY * * *Final Report* * * DATE OF EXAM: Feb 15 2022 11:30AM [facility] 0552 - CT PANCREAS W IVCON / [...] size of central mesenteric and retroperitoneal lymphadenopathy. Resident Caregiver lymph nodes are detailed as follows on [...] secondary to marrow reconversion. Lower thorax: Unremarkable. Nitrating Acid Mixer (topogram) images: No additional findings. DIVISION OF RADIOLOGY Provider, [facility] 02/15/2022 * * *Final Report* * * DATE OF EXAM: Feb 15 2022 11:30AM [facility] 0552 - CT PANCREAS W IVCON / [...] size of central mesenteric and retroperitoneal lymphadenopathy. Resident Caregiver lymph nodes are detailed as follows on [...] secondary to marrow reconversion. Lower thorax: Unremarkable. Nitrating Acid Mixer (topogram) images: No additional findings. IMPRESSION IMPRESSION: [...] any questions regarding this interpretation, please call [phone]. If you are unable to reach us at the number above, please feel free to contact [facility] at [phone]. [facility] Radiology Study observation (narrative) [facility] CT Pancreas W contrast IVOrd ered By: Ccf Provider on 02-15-2022 [facility] PSA TOTAL AND %FREEon 2021 % FREE PSA 22 % Normal [facility] [place] on above: Result Comment: INTE RPRETIVE [...] prostate cancer in individual patients. Performed By: [facility] [address] [place] [address] Client Analyst: Marnie Diaz MD Performed By: #### P SAFT #### [facility] [address] [place] [id number] PSA,FREE 0.4 ng/mL Normal [facility] Comment on above: Performed By: #### P SAFT #### [facility] [address] [place] [address] PSA,TOTAL 1.8 ng/mL Normal 0.0-4.0 [facility] [place] on above: Result Comment: INTE RPRETIVE [...] carcinoma. Performed By: #### P SAFT #### [facility] [address] [place] [address] RESPIRATORY PANEL PLUSon Adenovirus Not detected Normal NOT DETECTED [facility] Comment on above: Performed By: #### R SPLUS #### [facility] [address] [place] [address] Dr. Karen Carter. Parapertusis Not detected Normal NOT DETECTED [facility] Comment on above: Performed By: #### R SPLUS #### [facility] [address] [place] [address] Dr. Karen Carter. Pertussis Not detected Normal NOT DETECTED [facility] Comment on above: Performed By: #### R SPLUS #### [facility] [address] [place] [address] Dr. Karen Connolly Chlamydia Pneumoniae Not detected Normal NOT DETECTED [facility] Comment on above: Performed By: #### R SPLUS #### [facility] [address] [place] [address] Dr. Karen Connolly Coronavirus 229E Not detected Normal NOT DETECTED [facility] Comment on above: Performed By: #### R SPLUS #### [facility] [address] [place] [address] Dr. Karen Connolly Coronavirus HKU1 Not detected Normal NOT DETECTED [facility] Comment on above: Performed By: #### R SPLUS #### [facility] [address] [place] [address] Dr. Karen Connolly Coronavirus NL63 Not detected Normal NOT DETECTED [facility] Comment on above: Performed By: #### R SPLUS #### [facility] [address] [place] [address] Dr. Karen Connolly Coronavirus OC43 Not detected Normal NOT DETECTED [facility] Comment on above: Performed By: #### R SPLUS #### [facility] [address] [place] [address] Dr. Karen Connolly Influenza A H1 2009 Not detected Normal NOT DETECTED [facility] Comment on above: Performed By: #### R SPLUS #### [facility] [address] [place] [address] Dr. Karen Connolly Influenza B Not detected Normal NOT DETECTED [facility] Comment on above: Performed By: #### R SPLUS #### [facility] [address] [place] [address] Dr. Karen Connolly Metapneumovirus Not detected Normal NOT DETECTED [facility] Comment on above: Performed By: #### R SPLUS #### [facility] [address] [place] [address] Dr. Karen Connolly Mycoplas. Pneumoniae Not detected Normal NOT DETECTED [facility] Comment on above: Performed By: #### R SPLUS #### [facility] [address] [place] [address] Dr. aKren Connolly Parainfluenza 1 Not detected Normal NOT DETECTED [facility] Comment on above: Performed By: #### R SPLUS #### [facility] [address] [place] [address] Dr. Karen Connolly Parainfluenza 2 Not detected Normal NOT DETECTED [facility] Comment on above: Performed By: #### R SPLUS #### [facility] [address] [place] [address] Dr. Karen Connolly Parainfluenza 3 Not detected Normal NOT DETECTED [facility] Comment on above: Performed By: #### R SPLUS #### [facility] [address] [place] [address] Dr. Karen Connolly Parainfluenza 4 Not detected Normal NOT DETECTED [facility] Comment on above: Performed By: #### R SPLUS #### [facility] [address] [place] [address] Dr. Karen Connolly Rhino/Enterovirus Not detected Normal NOT DETECTED [facility] Comment on above: Performed By: #### R SPLUS #### [facility] [address] [place] [address] Dr. Karen Connolly RP2 Header 1 RESPIRATORY PANEL: VIRUSES Normal [facility] Comment on above: Performed By: #### R SPLUS #### [facility] [address] [place] [address] Dr. Karen Connolly RP2 Header 2 RESPIRATORY PANEL: BACTERIA Normal [facility] Comment on above: Performed By: #### R SPLUS #### [facility] [address] [place] [address] Dr. Karen Connolly RSV Not detected Normal NOT DETECTED [facility] Comment on above: Performed By: #### R SPLUS #### [facility] [address] [place] [address] Dr. Karen Connolly SARS-CoV-2 (COVID-19) RNA MIRTHA+probe Ql (Unsp spec) Detected Critically abnormal NOT DETECTED [facility] Comment on above: Performed By: #### R SPLUS #### [facility] [address] [place] [address] Dr. Karen Connolly CBC AUTO DIFFon 03-11-2021 BASO # 0.0 103/ul Normal 0.0-0.1 [facility] Comment on above: Performed By: #### C BC #### [facility] [address] [place] [address] Dr. Karen Connolly Basophils/100 WBC (Bld) 0.4 % Normal 0.2-2.0 [facility] Comment on above: Performed By: #### C BC #### [facility] [address] [place] [address] Dr. Karen Connolly EO # 0.1 103/ul Normal 0.0-0.7 [facility] Comment on above: Performed By: #### C BC #### [facility] [address] [place] [address] Dr. Kraen Connolly Eosinophils/100 WBC (Bld) 1.4 % Normal 0.9-7.0 [facility] Comment on above: Performed By: #### C BC #### [facility] [address] [place] [address] Dr. Karen Connolly Erythrocyte distribution width (RBC) [Ratio] 15.0 % Normal 11.0-15.0 [facility] Comment on above: Performed By: #### C BC #### [facility] [address] [place] [address] Dr. Karen Connolly Hematocrit (Bld) [Volume fraction] 31.7 % Critically low 42.0-54.0 [facility] Comment on above: Performed By: #### C BC #### [facility] [address] [place] [address] Dr. Karen Connolly Hemoglobin (Bld) [Mass/Vol] 10.0 g/dL Critically low 14.0-18.0 [facility] Comment on above: Performed By: #### C BC #### [facility] [address] [place] [address] Dr. Karen Connolly IG # 0.02 10e3/ul Normal 0.00-0.03 [facility] Comment on above: Performed By: #### C BC #### [facility] [address] [place] [address] Dr. Karen Connolly IG % 0.2 % Normal 0.0-0.5 [facility] Comment on above: Performed By: #### C BC #### [facility] [address] [place] [address] Dr. Karen Connolly LYMPH # 2.1 103/ul Normal 1.2-3.8 [facility] Comment on above: Performed By: #### C BC #### [facility] [address] [place] [address] Dr. Karen Connolly Lymphocytes/100 WBC (Bld) 26.3 % Normal 20.5-60.0 [facility] Comment on above: Performed By: #### C BC #### [facility] [address] [place] [address] Dr. Karen Connolly MANUAL DIFF REQ NO Normal [facility] Comment on above: Performed By: #### C BC #### [facility] [address] [place] [address] Dr. Karen Connolly MCH (RBC) [Entitic mass] 30.6 pg Normal 25.9-34.0 [facility] Comment on above: Performed By: #### C BC #### [facility] [address] [address] [address] Karen Connolly MCHC (RBC) [Mass/Vol] 31.5 g/dL Normal 29.9-35.2 [facility] Comment on above: Performed By: #### C BC #### [facility] [address] [address] [address] Karen Connolly MCV (RBC) [Entitic vol] 96.9 fL Critically high 80.0-94.0 [facility] Comment on above: Performed By: #### C BC #### [facility] [address] [address] [address] Karen Connolly MONO # 0.5 103/ul Normal 0.3-0.8 [facility] Comment on above: Performed By: #### C BC #### [facility] [address] [place] [address] Dr. Karen Connolly Monocytes/100 WBC (Bld) 6.6 % Normal 1.7-12.0 [facility] Comment on above: Performed By: #### C BC #### [facility] [address] [place] [address] Dr. Karen Connolly NEUT # 5.2 103/ul Normal 1.4-6.5 [facility] Comment on above: Performed By: #### C BC #### [facility] [address] [address] [address] Karen Connolly Neutrophils/100 WBC (Bld) 65.1 % Normal 43.0-75.0 [facility] Comment on above: Performed By: #### C BC #### [facility] [address] [address] [address] Karen Connolly Platelet mean volume (Bld) [Entitic vol] 10.4 fL Normal 9.5-13.5 [facility] Comment on above: Performed By: #### C BC #### [facility] [address] [address] [address] Karen Connolly PLT 280 103/ul Normal 150-450 [facility] Comment on above: Performed By: #### C BC #### [facility] [address] [address] [address] Karen Connolly RBC 3.27 106/ul Critically low 4.70-6.10 [facility] Comment on above: Performed By: #### C BC #### [facility] [address] [place] [address] Dr. Karen Connolly WBC 8.0 103/ul Normal 4.0-11.0 [facility] Comment on above: Performed By: #### C BC #### [facility] [address] [place] [address] Dr. Karen Connolly CBC AUTO DIFFon 03-04-2021 BASO # 0.0 103/ul Normal 0.0-0.1 [facility] Comment on above: Performed By: #### C BC #### [facility] [address] [place] [address] Dr. Karen Connolly Basophils/100 WBC (Bld) 0.4 % Normal 0.2-2.0 [facility] Comment on above: Performed By: #### C BC #### [facility] [address] [place] [address] Dr. Karen Connolly EO # 0.1 103/ul Normal 0.0-0.7 [facility] Comment on above: Performed By: #### C BC #### [facility] [address] [place] [address] Dr. Karen Connolly Eosinophils/100 WBC (Bld) 1.2 % Normal 0.9-7.0 [facility] Comment on above: Performed By: #### C BC #### [facility] [address] [place] [address] Dr. Karen Connolly Erythrocyte distribution width (RBC) [Ratio] 15.4 % Critically high 11.0-15.0 [facility] Comment on above: Performed By: #### C BC #### [facility] [address] [place] [address] Dr. Karen Connolly Hematocrit (Bld) [Volume fraction] 29.7 % Critically low 42.0-54.0 [facility] Comment on above: Performed By: #### C BC #### [facility] [address] [place] [address] Dr. Karen Connolly Hemoglobin (Bld) [Mass/Vol] 9.3 g/dL Critically low 14.0-18.0 [facility] Comment on above: Performed By: #### C BC #### [facility] [address] [place] [address] Dr. Karen Connolly IG # 0.01 10e3/ul Normal 0.00-0.03 [facility] Comment on above: Performed By: #### C BC #### [facility] [address] [place] [address] Dr. Kaern Connolly IG % 0.2 % Normal 0.0-0.5 [facility] Comment on above: Performed By: #### C BC #### [facility] [address] [place] [address] Dr. Karen Connolly LYMPH # 1.4 103/ul Normal 1.2-3.8 [facility] Comment on above: Performed By: #### C BC #### [facility] [address] [place] [address] Dr. Karen Connolly Lymphocytes/100 WBC (Bld) 24.7 % Normal 20.5-60.0 [facility] Comment on above: Performed By: #### C BC #### [facility] [address] [place] [address] Dr. Karen Connolly MANUAL DIFF REQ NO Normal [facility] Comment on above: Performed By: #### C BC #### [facility] [address] [place] [address] Dr. Karen Connolly MCH (RBC) [Entitic mass] 30.1 pg Normal 25.9-34.0 [facility] Comment on above: Performed By: #### C BC #### [facility] [address] [place] [address] Dr. Karen Connolly MCHC (RBC) [Mass/Vol] 31.3 g/dL Normal 29.9-35.2 [facility] Comment on above: Performed By: #### C BC #### [facility] [address] [place], [place] [id number] Dr. Karen Connolly MCV (RBC) [Entitic vol] 96.1 fL Critically high 80.0-94.0 [facility] Comment on above: Performed By: #### C BC #### [facility] [address] [place] [address] Dr. Karen Connolly MONO # 0.6 103/ul Normal 0.3-0.8 [facility] Comment on above: Performed By: #### C BC #### [facility] [address] [place] [address] Dr. Karen Connolly Monocytes/100 WBC (Bld) 10.6 % Normal 1.7-12.0 [facility] Comment on above: Performed By: #### C BC #### [facility] [address] [place] [address] Dr. Karen Connolly NEUT # 3.6 103/ul Normal 1.4-6.5 [facility] Comment on above: Performed By: #### C BC #### [facility] [address] [place] [address] Dr. Karen Connolly Neutrophils/100 WBC (Bld) 62.9 % Normal 43.0-75.0 [facility] Comment on above: Performed By: #### C BC #### [facility] [address] [place] [address] Dr. Karen Connloly Platelet mean volume (Bld) [Entitic vol] 10.0 fL Normal 9.5-13.5 [facility] Comment on above: Performed By: #### C BC #### [facility] [address] [place] [address] Dr. Karen Connolly PLT 258 103/ul Normal 150-450 [facility] Comment on above: Performed By: #### C BC #### [facility] [address] [place], [place] [id number] Dr. Karen Connolly RBC 3.09 106/ul Critically low 4.70-6.10 [facility] Comment on above: Performed By: #### C BC #### [facility] [address] [place] [address] Dr. Karen Connolly WBC 5.7 103/ul Normal 4.0-11.0 [facility] Comment on above: Performed By: #### C BC #### [facility] [address] [place] [address] Dr. Karen Connolly CBC AUTO DIFFon 02-25-2021 BASO # 0.1 103/ul Normal 0.0-0.1 [facility] Comment on above: Performed By: #### C BC #### [facility] [address] [place] [address] Dr. Karen Connolly Basophils/100 WBC (Bld) 0.8 % Normal 0.2-2.0 [facility] Comment on above: Performed By: #### C BC #### [facility] [address] [place] [address] Dr. Karen Connolly EO # 0.9 103/ul Critically high 0.0-0.7 [facility] Comment on above: Performed By: #### C BC #### [facility] [address] [place] [address] Dr. Karen Connolly Eosinophils/100 WBC (Bld) 9.7 % Critically high 0.9-7.0 [facility] Comment on above: Performed By: #### C BC #### [facility] [address] [place] [address] Dr. Karen Connolly Erythrocyte distribution width (RBC) [Ratio] 15.1 % Critically high 11.0-15.0 [facility] Comment on above: Performed By: #### C BC #### [facility] [address] [place] [address] Dr. Karen Connolly Hematocrit (Bld) [Volume fraction] 29.3 % Critically low 42.0-54.0 [facility] Comment on above: Performed By: #### C BC #### [facility] [address] [place] [address] Dr. Karen Connolly Hemoglobin (Bld) [Mass/Vol] 9.3 g/dL Critically low 14.0-18.0 [facility] Comment on above: Performed By: #### C BC #### [facility] [address] [place] [address] Dr. Karen Connolly IG # 0.02 10e3/ul Normal 0.00-0.03 [facility] Comment on above: Performed By: #### C BC #### [facility] [address] [place] [address] Dr. Karen Connolly IG % 0.2 % Normal 0.0-0.5 [facility] Comment on above: Performed By: #### C BC #### [facility] [address] [place] [address] Dr. Karen Connolly LYMPH # 2.2 103/ul Normal 1.2-3.8 [facility] Comment on above: Performed By: #### C BC #### [facility] [address] [place] [address] Dr. Karen Connolly Lymphocytes/100 WBC (Bld) 24.3 % Normal 20.5-60.0 [facility] Comment on above: Performed By: #### C BC #### [facility] [address] [place] [address] Dr. Karen Connolly MANUAL DIFF REQ NO Normal [facility] Comment on above: Performed By: #### C BC #### [facility] [address] [place] [address] Dr. Karen Connolly MCH (RBC) [Entitic mass] 30.7 pg Normal 25.9-34.0 [facility] Comment on above: Performed By: #### C BC #### [facility] [address] [place] [address] Dr. Karen Connolly MCHC (RBC) [Mass/Vol] 31.7 g/dL Normal 29.9-35.2 [facility] Comment on above: Performed By: #### C BC #### [facility] [address] [place] [address] Dr. Karen Connolly MCV (RBC) [Entitic vol] 96.7 fL Critically high 80.0-94.0 [facility] Comment on above: Performed By: #### C BC #### [facility] [address] [place] [address] Dr. Karen Connolly MONO # 0.6 103/ul Normal 0.3-0.8 [facility] Comment on above: Performed By: #### C BC #### [facility] [address] [place] [address] Dr. Karen Connolly Monocytes/100 WBC (Bld) 6.9 % Normal 1.7-12.0 [facility] Comment on above: Performed By: #### C BC #### [facility] [address] [place] [address] Dr. Karen Connolly NEUT # 5.3 103/ul Normal 1.4-6.5 [facility] Comment on above: Performed By: #### C BC #### [facility] [address] [place] [address] Dr. Karen Connolly Neutrophils/100 WBC (Bld) 58.1 % Normal 43.0-75.0 [facility] Comment on above: Performed By: #### C BC #### [facility] [address] [place] [address] Dr. Karen Connolly Platelet mean volume (Bld) [Entitic vol] 9.6 fL Normal 9.5-13.5 [facility] Comment on above: Performed By: #### C BC #### [facility] [address] [place] [address] Dr. Karen Connolly PLT 317 103/ul Normal 150-450 [facility] Comment on above: Performed By: #### C BC #### [facility] [address] [place] [address] Dr. Karen Connolly RBC 3.03 106/ul Critically low 4.70-6.10 [facility] Comment on above: Performed By: #### C BC #### [facility] [address] [place] [address] Dr. Karen Connolly WBC 9.0 103/ul Normal 4.0-11.0 [facility] Comment on above: Performed By: #### C BC #### [facility] [address] [place] [address] Dr. Karen Connolly Ambulatory Clinical Summaryo n 08-17-2020 Ambulatory Clinical Summary {[id number] [facility] Patient Educationon [...] Document Reviewed: 01/11/2008 ExitCare? Patient Information ?2013 goviral. [facility] Urology Office/Clinic Noteon 08-17-2020 Urology Office/Clinic [...] When Contact Information GERI GODWIN, Billy Jordan [address] [place] [phone] Additional Instructions: 6mos. kub Patient Education Benign [...] Protein Urine Dipstick: Negative (08/17/20 14:35:00) Specific [place] Urine Dipstick: 1.025 (08/17/20 14:35:00) Urine Appearan (more content not included)... [facility] Comment on above: Result Comment: Elec tronically Signed By: Billy NEVAREZ MD\.br\Date and Time Signed: 08/17/20 15:19 EDT\.br\Electronically Co-Signed By: Eufemia Gomes MA\.br\Date and Time Co-Signed: 08/17/20 15:18 EDT Lab Reportson 05-06-2020 Lab Reports [id number]:12 7 [facility] CBC Auto Differentialon 03-23 Basophils (Bld) [#/Vol] 0.04 10*3/uL [facility], [place] Basophils/100 WBC (Bld) 1 % 0 - 2 % [facility], [place] Differential Type NOT REPORTED [place] Eosinophils (Bld) [#/Vol] 0.05 10*3/uL [place] Eosinophils/100 WBC (Bld) 1 % 1 - 4 % [place] Erythrocyte distribution width (RBC) [Ratio] 19.1 % High 11.8 - 14.4 % [place] Hematocrit (Bld) [Volume fraction] 25.6 % Low 40.7 - 50.3 % [place] Hemoglobin (Bld) [Mass/Vol] 7.7 g/dL Low 13 - 17 g/dL [place] Immature granulocytes (Bld) [#/Vol] 0.05 10*3/uL [place] Immature granulocytes (Bld) [#/Vol] 1 % High 0 [place] Interpretation and review of laboratory results Abnormal [place] Lymphocytes (Bld) [#/Vol] 1.97 10*3/uL [place] Lymphocytes/100 WBC (Bld) 29 % 24 - 43 % [place] MCH (RBC) [Entitic mass] 26.7 pg 25.2 - 33.5 pg [place] MCHC (RBC) [Mass/Vol] 30.1 g/dL 28.4 - 34.8 g/dL [place] MCV (RBC) [Entitic vol] 88.9 fL 82.6 - 102.9 fL [place] Monocytes (Bld) [#/Vol] 0.56 10*3/uL [place] Monocytes/100 WBC (Bld) 8 % 3 - 12 % [place] Platelet mean volume (Bld) [Entitic vol] 8.6 fL 8.1 - 13.5 fL [place] Platelets (Bld) [#/Vol] NOT REPORTED [place] Platelets (Bld) [#/Vol] 474 10*3/uL [place] RBC (Bld) [#/Vol] 2.88 10*6/uL Low 4.21 - 5.7 7 m/uL [place] RBC morphology finding Nom (Bld) NOT REPORTED [place] Segmented neutrophils/100 WBC (Bld) 60 % 36 - 65 % [place] Segs Absolute 4.21 [place] WBC (Bld) [#/Vol] 0.0 10*3/uL 0.0 per 10 0 WBC [place] WBC (Bld) [#/Vol] 6.9 10*3/uL [place] WBC Morphology NOT REPORTED [place] CBC with Diffon 04-15-2020 Abs. Basophil 0.04 k/uL Normal 0.00-0.20 [facility] Comment on above: Performed By: #### C P, CDP #### [address] [place] [id number] [employer] Specialist: Farhad Turner MD Abs.Imm.Granulocyte 0.05 k/uL Normal 0.00-0.30 [facility] Comment on above: Performed By: #### C P, CDP #### [address] [place], [facility]83 [employer] Specialist: Farhad Turner MD Abs.Neutrophil (Seg) 4.21 k/uL Normal 1.50-8.10 [facility] Comment on above: Performed By: #### C P, CDP #### [address] [place] [id number] [employer] Specialist: Farhad Turner MD Basophils/100 WBC (Bld) 1 % Normal 0-2 [facility] Comment on above: Performed By: #### C P, CDP #### [address] Vás[place], [facility]83 [employer]ist: Farhad Turner MD Eosinophils (Bld) [#/Vol] 0.05 10*3/uL Normal 0.00-0.44 [facility] Comment on above: Performed By: #### C P, CDP #### [address] [place] [id number] [employer] Specialist: Farhad Turner MD Eosinophils/100 WBC (Bld) 1 % Normal 1-4 [facility] Comment on above: Performed By: #### C P, CDP #### [facility] [address] [place] [address] [employer]ist: Farhad Turner MD Erythrocyte distribution width (RBC) [Ratio] 19.1 % High 11.8-14.4 [facility] Comment on above: Performed By: #### C P, CDP #### [facility] [address] [place] [address] [employer]ist: Farhad Turner MD Hematocrit (Bld) [Volume fraction] 25.6 % Low 40.7-50.3 [facility] Comment on above: Performed By: #### C P, CDP #### [address] [place]ás[place], [facility]83 [employer] Specialist: Farhad Turner MD Hemoglobin (Bld) [Mass/Vol] 7.7 g/dL Low 13.0-17.0 [facility] Comment on above: Performed By: #### C P, CDP #### [address] [place]ás[place], [facility]83 [employer]ist: Farhad Turner MD Immature granulocytes (Bld) [#/Vol] 1 % High 0 [facility] Comment on above: Performed By: #### C P, CDP #### [facility] [address] [place], [facility]83 [employer]ist: Farhad Turner MD Lymphocytes (Bld) [#/Vol] 1.97 10*3/uL Normal 1.10-3.70 [facility] Comment on above: Performed By: #### C P, CDP #### [address] [place] [address] [employer]: Farhad Turner MD Lymphocytes/100 WBC (Bld) 29 % Normal 24-43 [facility] Comment on above: Performed By: #### C P, CDP #### [facility] [address] [place], [place] [address] [employer]ist: Farhad Turner MD MCH (RBC) [Entitic mass] 26.7 pg Normal 25.2-33.5 [facility] Comment on above: Performed By: #### C P, CDP #### [facility] [address] [place] [facility]83 [employer]ist: Farhad Turner MD MCHC (RBC) [Mass/Vol] 30.1 g/dL Normal 28.4-34.8 [facility] Comment on above: Performed By: #### C P, CDP #### [facility] [address] [place] [address] [employer]ist: Farhad Turner MD MCV (RBC) [Entitic vol] 88.9 fL Normal 82.6-102.9 [facility] Comment on above: Performed By: #### C P, CDP #### [facility] [address] [place], [facility]83 [employer]ist: Farhad Turner MD Monocytes (Bld) [#/Vol] 0.56 10*3/uL Normal 0.10-1.20 [facility] Comment on above: Performed By: #### C P, CDP #### [facility] [address] [place], [place] [address] [employer]: Farhad Turner MD Monocytes/100 WBC (Bld) 8 % Normal 3-12 [facility] Comment on above: Performed By: #### C P, CDP #### [facility] [address] [place], [place] [address] [employer]ist: Farhad Turner MD Neutrophil (Seg) 60 % Normal 36-65 [facility] Comment on above: Performed By: #### C P, CDP #### [facility] [address] [place] [id number] [employer]ist: Farhad Turner MD NRBC Automated 0.0 per 100 WBC Normal 0.0 [facility] Comment on above: Performed By: #### C P, CDP #### [facility] [address] [place], [facility]83 [employer]ist: Farhad Turner MD Platelet mean volume (Bld) [Entitic vol] 8.6 fL Normal 8.1-13.5 [facility] Comment on above: Performed By: #### C P, CDP #### [facility] [address] [place], [facility]83 [employer]ist: Farhad Turner MD Platelets (Bld) [#/Vol] 474 10*3/uL High 138-453 [facility] Comment on above: Performed By: #### C P, CDP #### [facility] [address] [place], [place] [address] [employer]ist: Farhad Turner MD RBC (Bld) [#/Vol] 2.88 10*6/uL Low 4.21-5.77 [facility] Comment on above: Performed By: #### C P, CDP #### [facility] [address] [place], [facility]83 [employer]ist: Farhad Turner MD WBC (Bld) [#/Vol] 6.9 10*3/uL Normal 3.5-11.3 [facility] Comment on above: Performed By: #### C P, CDP #### [facility] [address] [place], [place] [id number] [employer]ist: Farhad Turner MD Auto Diff Performed NOT REPORTED Normal [facility] Comment on above: Performed By: #### C P, CDP #### [facility] [address] [place], [place] [id number] [employer]ist: Farhad Turner MD Platelets (Bld) [#/Vol] NOT REPORTED Normal [facility] Comment on above: Performed By: #### C P, CDP #### [facility] [address] [place], [place] [address] [employer]ist: Farhad Turner MD RBC morphology finding Nom (Bld) NOT REPORTED Normal [facility] Comment on above: Performed By: #### C P, CDP #### [facility] [address] [place], [place] [address] [employer]ist: Farhad Turner MD WBC Morphology NOT REPORTED Normal [facility] Comment on above: Performed By: #### C P, CDP #### [facility] [address] [place], [place] [address] [employer]ist: Farhad Turner MD Comp Metabolic Profon 2019 (cont.) Normal [facility] Comment on above: Result Comment: Aver age GFR for 60-69 years old: 85 mL/min/1.73sq m Chronic Kidney Disease: <60 mL/min/1.73sq m Kidney failure: <15 mL/min/1.73sq m eGFR calculated using average adult body mass. Additional eGFR calculator available at: http://www.[employer].Content360/multiple_crcl_2012.htm Performed By: #### C P, CDP #### [facility] [address] [place], [place] [address] [employer]: Farhad Turner MD Albumin [Mass/Vol] 2.0 g/dL Low 3.5-5.2 [facility] Comment on above: Performed By: #### C P, CDP #### [facility] [address] [place], [place] [address] [employer]ist: Farhad Turner MD Albumin/Globulin [Mass ratio] 0.5 {ratio} Low 1.0-2.5 [facility] Comment on above: Performed By: #### C P, CDP #### [facility] [address] [place], [place] [address] [employer]: Farhad Turner MD Alkaline Phos 74 U/L Normal 40-129 [facility] Comment on above: Performed By: #### C P, CDP #### [facility] [address] [place], [place] [id number] [employer]ist: Farhad Turner MD ALT [Catalytic activity/Vol] 6 U/L Normal 5-41 [facility] Comment on above: Performed By: #### C P, CDP #### [facility] [address] [place], [place] [address] [employer]ist: Farhad Turner MD Anion gap [Moles/Vol] 5 mmol/L Low 9-17 [facility] Comment on above: Performed By: #### C P, CDP #### [facility] [address] [place], [place] [address] [employer]ist: Farhad Turner MD AST [Catalytic activity/Vol] 12 U/L Normal <40 [facility] Comment on above: Performed By: #### C P, CDP #### [facility] [address] [place], [place] [id number] [employer]ist: Farhad Turner MD Bilirubin Ql (U) 0.32 mg/dL Normal 0.3-1.2 [facility] Comment on above: Performed By: #### C P, CDP #### [facility] [address] [place], [place] [address] [employer]ist: Farhad Turner MD BUN/CRE Ratio 21 High 9-20 [facility] Comment on above: Performed By: #### C P, CDP #### [facility] [address] [place], [place] [address] [employer]ist: Farhad Turner MD Calcium [Mass/Vol] 9.4 mg/dL Normal 8.6-10.4 [facility] Comment on above: Performed By: #### C P, CDP #### [facility] [address] [place], [place] [address] [employer]ist: Farhad Turner MD Chloride [Moles/Vol] 101 mmol/L Normal 98-107 [facility] Comment on above: Performed By: #### C P, CDP #### [facility] [address] [place], [place] [address] [employer]ist: Farhad Turner MD CO2 [Moles/Vol] 30 mmol/L Normal 20-31 [facility] Comment on above: Performed By: #### C P, CDP #### [facility] [address] [place], [place] 6186[address] [employer]ist: Farhad Turner MD Creatinine [Mass/Vol] 0.28 mg/dL Low 0.70-1.20 [facility] Comment on above: Performed By: #### C P, CDP #### [facility] [address] [place], [place] [phone] [employer]ist: Farhad Turner MD GFR, Amer >60 Normal >60 [facility] Comment on above: Performed By: #### C P, CDP #### [facility] [address] [place], [place] [address] [employer]ist: Farhad Turner MD GFR,non Amer >60 Normal >60 [facility] Comment on above: Performed By: #### C P, CDP #### [facility] [address] [place], [place] 4457[address] [employer] Specialist: Farhad Turner MD Glucose [Mass/Vol] 120 mg/dL High 70-99 [facility] Comment on above: Performed By: #### C P, CDP #### [facility] [address] [place], [place] [address] [employer]ist: Farhad Turner MD Potassium [Moles/Vol] 3.3 mmol/L Low 3.7-5.3 [facility] Comment on above: Performed By: #### C P, CDP #### [facility] [address] [place], [place] [address] [employer]ist: Farhad Turner MD Protein [Mass/Vol] 5.9 g/dL Low 6.4-8.3 [facility] Comment on above: Performed By: #### C P, CDP #### [facility] [address] [place] [address] [employer]ist: Farhad Turner MD Sodium [Moles/Vol] 136 mmol/L Normal 135-144 [facility] Comment on above: Performed By: #### C P, CDP #### [facility] [address] [place] [address] [employer]ist: Farhad Turner MD Staging: Normal [facility] Comment on above: Result Comment: Stag e 1: Some kidney damage normal GFR Stage 2: Mild kidney damage GFR 60-89 Stage 3: Moderate kidney damage GFR 30-59 Stage 4: Severe kidney damage GFR 15-29 Stage 5: Severe kidney damage GFR <15 ESRD - chronic treatment by dialysis or transplant Performed By: #### C P, CDP #### [facility] [address] [place] [address] [employer]ist: Farhad Turner MD Urea nitrogen [Mass/Vol] 6 mg/dL Low 8-23 [facility] Comment on above: Performed By: #### C P, CDP #### [facility] [address] [place] [address] [employer]ist: Farhad Turner MD [facility] Metabolic [facility] 04-15-2020 Albumin [Mass/Vol] 2 g/dL Low 3.5 - 5.2 g/dL [place] Albumin/Globulin [Mass ratio] 0.5 {ratio} Low [place] ALP [Catalytic activity/Vol] 74 U/L 40 - 129 U/L [place] ALT [Catalytic activity/Vol] 6 U/L 5 - 41 U/L [place] Anion gap [Moles/Vol] 5 mmol/L Low 9 - 17 mmol/L [place] AST [Catalytic activity/Vol] 12 U/L <40 [place] Bilirubin Ql (U) 0.32 mg/dL 0.3 - 1.2 mg/dL [place] Bun/Cre Ratio 21 High [place] Calcium [Mass/Vol] 9.4 mg/dL 8.6 - 10. 4 mg/dL [place] Chloride [Moles/Vol] 101 mmol/L 98 - 10 7 mmol/L [place] CO2 [Moles/Vol] 30 mmol/L 20 - 31 mmol/L [place] Creatinine [Mass/Vol] 0.28 mg/dL Low 0.7 - 1.2 mg/dL [place] GFR >60 >60 mL/min [place] GFR Non- >60 >60 mL/min [place] Glucose [Mass/Vol] 120 mg/dL High 70 - 99 mg/dL [place] Interpretation and review of laboratory results Abnormal [place] Potassium [Moles/Vol] 3.3 mmol/L Low 3.7 - 5.3 mmol/L [place] Protein [Mass/Vol] 5.9 g/dL Low 6.4 - 8.3 g/dL [place] Sodium [Moles/Vol] 136 mmol/L 135 - 144 mmol/L [place] Urea nitrogen [Mass/Vol] 6 mg/dL Low 8 - 23 mg/dL [place] Metabolic Panelon 04-15-2020 GFR/1.73 sq M predicted among non-blacks MDRD (S/P/Bld) [Vol rate/Area] [place] Comment on above: Stage 1: Some [...] body mass. Additional eGFR calculator available at: http://www.[employer] Water/multiple_crcl_2011.htm Transfer Inon 04-13-2020 Transfer In [id number]:12 7 Normal [facility] CBCon 03-16-2020 Erythrocyte distribution width (RBC) [Ratio] 17.3 % High 11.8 - 14.4 % [place] Hematocrit (Bld) [Volume fraction] 30.0 % Low 40.7 - 50.3 % [place] Hemoglobin (Bld) [Mass/Vol] 8.7 g/dL Low 13 - 17 g/dL [place] Interpretation and review of laboratory results Abnormal [place] MCH (RBC) [Entitic mass] 25.1 pg Low 25.2 - 33.5 pg [place] MCHC (RBC) [Mass/Vol] 29.0 g/dL 28.4 - 34.8 g/dL [place] MCV (RBC) [Entitic vol] 86.5 fL 82.6 - 102.9 fL [place] Platelet mean volume (Bld) [Entitic vol] 8.8 fL 8.1 - 13.5 fL [place] Platelets (Bld) [#/Vol] 471 10*3/uL [place] RBC (Bld) [#/Vol] 3.47 10*6/uL Low 4.21 - 5.7 7 m/uL [place] WBC (Bld) [#/Vol] 14.6 10*3/uL [place] WBC (Bld) [#/Vol] 0.0 10*3/uL 0.0 per 10 0 WBC [place] Comprehensive Metabolic Pane kimo 03-16-2020 Albumin [Mass/Vol] 2.1 g/dL Low 3.5 - 5.2 g/dL [place] Albumin/Globulin [Mass ratio] 0.5 {ratio} Low [place] ALP [Catalytic activity/Vol] 54 U/L 40 - 129 U/L [place] ALT [Catalytic activity/Vol] U/L Low 5 - 41 U/L [place] Anion gap [Moles/Vol] 9 mmol/L 9 - 17 mmol/L [place] AST [Catalytic activity/Vol] 9 U/L <40 [place] Bilirubin Ql (U) 0.18 mg/dL Low 0.3 - 1.2 mg/dL [place] Bun/Cre Ratio 18 [place] Calcium [Mass/Vol] 9.7 mg/dL 8.6 - 10. 4 mg/dL [place] Chloride [Moles/Vol] 99 mmol/L 98 - 10 7 mmol/L [place] CO2 [Moles/Vol] 27 mmol/L 20 - 31 mmol/L [place] Creatinine [Mass/Vol] 0.39 mg/dL Low 0.7 - 1.2 mg/dL [place] GFR >60 >60 mL/min [place] GFR Non- >60 >60 mL/min [place] Glucose [Mass/Vol] 98 mg/dL 70 - 99 mg/dL [place] Interpretation and review of laboratory results Abnormal [place] Potassium [Moles/Vol] 3.6 mmol/L Low 3.7 - 5.3 mmol/L [place] Protein [Mass/Vol] 6.3 g/dL Low 6.4 - 8.3 g/dL [place] Sodium [Moles/Vol] 135 mmol/L 135 - 144 mmol/L [place] Urea nitrogen [Mass/Vol] 7 mg/dL Low 8 - 23 mg/dL [place] Metabolic Panelon 03-16-2020 GFR/1.73 sq M predicted among non-blacks MDRD (S/P/Bld) [Vol rate/Area] [place] Comment on above: Average GFR for 60-6 9 years old: 85 mL/min/1.73sq m Chronic Kidney Disease: <60 mL/min/1.73sq m Kidney failure: <15 mL/min/1.73sq m eGFR calculated using average adult body mass. Additional eGFR calculator available at: http://www.ET Water/multiple_crcl_2012.htm Stage 1: Some kidney damage normal GFR Stage 2: Mild kidney damage GFR 60-89 Stage 3: Moderate kidney damage GFR 30-59 Stage 4: Severe kidney damage GFR 15-29 Stage 5: Severe kidney damage GFR <15 ESRD - chronic treatment by dialysis or transplant Transfer Inon 03-13-2020 Transfer In [id number]:12 7 Normal [facility] Lab Reportson 03-06-2020 Lab Reports [id number]:12 7 [facility] Reminderson 03-06-2020 Reminders - From: Rain [...] qd #14 proposed. pts was notified.LG Normal [facility] SURGICAL PATHOLOGYon 020 SURGICAL PATHOLOGY ADDENDUM PRESENT Specimen #: [id number] Submitting Physician: JASON MUÑOZ M.D. FINAL DIAGNOSIS [facility], [place], [place]; [id number] (11/13/2019) Duodenum, postbulbar, biopsy (A1, stains) - [...] to contact the GI Consultation Service at [phone] with questions or if additional follow up information becomes available. This case was reviewed in conjunction with the GI pathology fellow, Rajan Bain M.D., Ph.D. IG/HYL//11-19-2019 Walter De Luna M.D., Ph.D. (Electronic Signature) SPECIMEN SUBMITTED A: 6 SLIDES [id number] ADDENDUM Date Ordered: 11/19/2019 Date Reported: 11/19/2019 This case has also been reviewed in consultation with Dr. Halie Cartwright, who concurs with the diagnosis. Addendum Pathologist: Walter De Luna M.D., Ph.D. Electronic Signature CLINICAL DATA Abdominal pain. Patient ID #: Date of Report: 11/19/2019 Date of Procedure: 11/18/2019 Date of Receipt: 11/18/2019 Submitted by: JASON MUÑOZ M.D. Location: Diagnostic interpretation performed at [facility], [address] [place] [address]. CLIA Number: [id number] Normal [facility] Comment on above: Performed By: #### S #### See report for performing lab information. Vital Signs Date Time Vital Sign Value Performing Clinician Facility 04-04-2024 10:37-0500 Body temperature 98.4 [degF] [employer] Work Phone: [facility] 04-04-2024 10:37-0500 Diastolic blood pressure 79 mm[Hg] [employer] Work Phone: [facility] 04-04-2024 10:37-0500 Heart rate 84 /min [employer] Work Phone: [facility] 04-04-2024 10:37-0500 Respiratory rate 18 /min [employer] Work Phone: [facility] 04-04-2024 10:37-0500 SaO2% (BldA) [Mass fraction] 98 % [employer] Work Phone: [facility] 04-04-2024 10:37-0500 Systolic blood pressure 136 mm[Hg] Chair Danny Work Phone: [facility] 04-02-2024 09:31-0500 Body height 169.7 cm Yordy Moncada APRN.ROUNDING AND BACKING MACHINE OPERATOR Work Phone: [facility] 04-02-2024 09:31-0500 Body mass index (BMI) [Ratio] 26.15 kg/m2 Yordy Moncada APRN.ROUNDING AND BACKING MACHINE OPERATOR Work Phone: [facility] 04-02-2024 09:31-0500 Body temperature 97.81 [degF] Yordy Moncada APRN.ROUNDING AND BACKING MACHINE OPERATOR Work Phone: [facility] 04-02-2024 09:31-0500 Body weight 75.3 kg Yordy Moncada APRN.ROUNDING AND BACKING MACHINE OPERATOR Work Phone: [facility] 04-02-2024 09:31-0500 Diastolic blood pressure 74 mm[Hg] Yordy Moncada APRN.ROUNDING AND BACKING MACHINE OPERATOR Work Phone: [facility] 04-02-2024 09:31-0500 Heart rate 75 /min Yordy Moncada APRN.ROUNDING AND BACKING MACHINE OPERATOR Work Phone: [facility] 04-02-2024 09:31-0500 Respiratory rate 16 /min Yordy Moncada APRN.ROUNDING AND BACKING MACHINE OPERATOR Work Phone: [facility] 04-02-2024 09:31-0500 SaO2% (BldA) [Mass fraction] 99 % Yordy Moncada APRN.ROUNDING AND BACKING MACHINE OPERATOR Work Phone: [facility] 04-02-2024 09:31-0500 Systolic blood pressure 122 mm[Hg] Yrody Moncada APRN.ROUNDING AND BACKING MACHINE OPERATOR Work Phone: [facility] 04-01-2024 14:15-0500 Body height 172.7 cm Giovanni Salinas MD Work Phone: [facility] 04-01-2024 14:15-0500 Body mass index (BMI) [Ratio] 25.85 kg/m2 Giovanni Salinas MD Work Phone: [facility] 04-01-2024 14:15-0500 Body temperature 98.6 [degF] Giovanni Salinas MD Work Phone: [facility] 04-01-2024 14:15-0500 Body weight 77.11 kg Giovanni Salinas MD Work Phone: [facility] 04-01-2024 14:15-0500 Diastolic blood pressure 72 mm[Hg] Giovanni Salinas MD Work Phone: [facility] 04-01-2024 14:15-0500 Heart rate 73 /min Giovanni Salinas MD Work Phone: [facility] 04-01-2024 14:15-0500 SaO2% (BldA) [Mass fraction] 98 % Giovanni Salinas MD Work Phone: [facility] 04-01-2024 14:15-0500 Systolic blood pressure 130 mm[Hg] Giovanni Salinas MD Work Phone: [facility] 03-07-2024 10:56-0400 Body temperature 98.1 [degF] Chair Van Buren Work Phone: [facility] 03-07-2024 10:56-0400 Diastolic blood pressure 70 mm[Hg] Chair Van Buren Work Phone: [facility] 03-07-2024 10:56-0400 Heart rate 88 /min Chair Danny Work Phone: [facility] 03-07-2024 10:56-0400 Respiratory rate 18 /min Chair Van Buren Work Phone: [facility] 03-07-2024 10:56-0400 SaO2% (BldA) [Mass fraction] 100 % Chair Van Buren Work Phone: [facility] 03-07-2024 10:56-0400 Systolic blood pressure 107 mm[Hg] Chair Van Buren Work Phone: [facility] 03-05-2024 08:42-0400 Body height 169.7 cm Vivek Smith MD Work Phone: [facility] 03-05-2024 08:42-0400 Body mass index (BMI) [Ratio] 26.29 kg/m2 Vivek Smith MD Work Phone: [facility] 03-05-2024 08:42-0400 Body temperature 97.11 [degF] Vivek Smith MD Work Phone: [facility] 03-05-2024 08:42-0400 Body weight 75.7 kg Vivek Smith MD Work Phone: [facility] 03-05-2024 08:42-0400 Diastolic blood pressure 69 mm[Hg] Vivek Smith MD Work Phone: [facility] 03-05-2024 08:42-0400 Heart rate 89 /min Vivek Smith MD Work Phone: [facility] 03-05-2024 08:42-0400 Respiratory rate 16 /min Vivek Smith MD Work Phone: [facility] 03-05-2024 08:42-0400 SaO2% (BldA) [Mass fraction] 99 % Vivek Smith MD Work Phone: [facility] 03-05-2024 08:42-0400 Systolic blood pressure 112 mm[Hg] Vivek Smith MD Work Phone: [facility] 02-14-2024 10:27-0400 Diastolic blood pressure 81 mm[Hg] Chair Van Buren Work Phone: [facility] 02-14-2024 10:27-0400 Heart rate 79 /min Chair Van Buren Work Phone: [facility] 02-14-2024 10:27-0400 Respiratory rate 16 /min Chair Van Buren Work Phone: [facility] 02-14-2024 10:27-0400 SaO2% (BldA) [Mass fraction] 97 % Chair Van Buren Work Phone: [facility] 02-14-2024 10:27-0400 Systolic blood pressure 125 mm[Hg] Chair Danny Work Phone: [facility] 02-12-2024 08:47-0400 Body mass index (BMI) [Ratio] 26.04 kg/m2 Vivek Smith MD Work Phone: [facility] 02-12-2024 08:47-0400 Body temperature 97.59 [degF] Vivek Smith MD Work Phone: [facility] 02-12-2024 08:47-0400 Body weight 75 kg Vivek Smith MD Work Phone: [facility] 02-12-2024 08:47-0400 Diastolic blood pressure 76 mm[Hg] Vivek Smith MD Work Phone: [facility] 02-12-2024 08:47-0400 Heart rate 82 /min Vivek Smith MD Work Phone: [facility] 02-12-2024 08:47-0400 Respiratory rate 18 /min Vivek Smith MD Work Phone: [facility] 02-12-2024 08:47-0400 SaO2% (BldA) [Mass fraction] 99 % Vivek Smith MD Work Phone: [facility] 02-12-2024 08:47-0400 Systolic blood pressure 117 mm[Hg] Vivek Smith MD Work Phone: [facility] 01-23-2024 09:29-0400 Body height 169.7 cm Greta Rashard PA-C Work Phone: [facility] 01-23-2024 09:29-0400 Body mass index (BMI) [Ratio] 26.15 kg/m2 Greta Rashard PA-C Work Phone: [facility] 01-23-2024 09:29-0400 Body temperature 97.11 [degF] Greta Rashard PA-C Work Phone: [facility] 01-23-2024 09:29-0400 Body weight 75.3 kg Greta Rashard PA-C Work Phone: [facility] 01-23-2024 09:29-0400 Diastolic blood pressure 81 mm[Hg] Greta Rashard PA-C Work Phone: [facility] 01-23-2024 09:29-0400 Heart rate 82 /min Greta Rashard PA-C Work Phone: [facility] 01-23-2024 09:29-0400 Respiratory rate 16 /min Greta Rashard PA-C Work Phone: [facility] 01-23-2024 09:29-0400 SaO2% (BldA) [Mass fraction] 100 % Greta Rashard PA-C Work Phone: [facility] 01-23-2024 09:29-0400 Systolic blood pressure 124 mm[Hg] Greta Rashard PA-C Work Phone: [facility] 01-05-2024 11:02-0400 Body temperature 97.7 [degF] Chair Van Buren Work Phone: [facility] 01-05-2024 11:02-0400 Diastolic blood pressure 73 mm[Hg] Chair Van Buren Work Phone: [facility] 01-05-2024 11:02-0400 Heart rate 71 /min Chair Danny Work Phone: [facility] 01-05-2024 11:02-0400 Respiratory rate 18 /min Chair Van Buren Work Phone: [facility] 01-05-2024 11:02-0400 SaO2% (BldA) [Mass fraction] 99 % Chair Danny Work Phone: [facility] 01-05-2024 11:02-0400 Systolic blood pressure 108 mm[Hg] Chair Van Buren Work Phone: [facility] 01-03-2024 09:37-0400 Body height 169.7 cm Greta Rashard PA-C Work Phone: [facility] 01-03-2024 09:37-0400 Body mass index (BMI) [Ratio] 26.18 kg/m2 Greta Rashard PA-C Work Phone: [facility] 01-03-2024 09:37-0400 Body temperature 97.39 [degF] Greta Rashard PA-C Work Phone: [facility] 01-03-2024 09:37-0400 Body weight 75.4 kg Greta Rashard PA-C Work Phone: [facility] 01-03-2024 09:37-0400 Diastolic blood pressure 84 mm[Hg] Greta Rashard PA-C Work Phone: [facility] 01-03-2024 09:37-0400 Heart rate 75 /min Greta Rashard PA-C Work Phone: [facility] 01-03-2024 09:37-0400 Respiratory rate 16 /min Greta Rashard PA-C Work Phone: [facility] 01-03-2024 09:37-0400 SaO2% (BldA) [Mass fraction] 99 % Greta Rashard PA-C Work Phone: [facility] 01-03-2024 09:37-0400 Systolic blood pressure 128 mm[Hg] Greta Rashard PA-C Work Phone: [facility] 12-13-2023 12:05-0400 Body temperature 98.2 [degF] Chair Van Buren Work Phone: [facility] 12-13-2023 12:05-0400 Diastolic blood pressure 78 mm[Hg] Chair Van Buren Work Phone: [facility] 12-13-2023 12:05-0400 Heart rate 72 /min Chair Danny Work Phone: [facility] 12-13-2023 12:05-0400 Respiratory rate 18 /min Chair Danny Work Phone: [facility] 12-13-2023 12:05-0400 SaO2% (BldA) [Mass fraction] 98 % Chair Van Buren Work Phone: [facility] 12-13-2023 12:05-0400 Systolic blood pressure 110 mm[Hg] Chair Danny Work Phone: [facility] 12-11-2023 10:04-0400 Body mass index (BMI) [Ratio] 25.87 kg/m2 Vivek Smith MD Work Phone: [facility] 12-11-2023 10:04-0400 Body temperature 97.9 [degF] Vivek Smith MD Work Phone: [facility] 12-11-2023 10:04-0400 Body weight 74.5 kg Vivek Smith MD Work Phone: [facility] 12-11-2023 10:04-0400 Diastolic blood pressure 69 mm[Hg] Vivek Smith MD Work Phone: [facility] 12-11-2023 10:04-0400 Heart rate 84 /min Vivek Smith MD Work Phone: [facility] 12-11-2023 10:04-0400 Respiratory rate 16 /min Vivek Smith MD Work Phone: [facility] 12-11-2023 10:04-0400 SaO2% (BldA) [Mass fraction] 99 % Vivek Smith MD Work Phone: [facility] 12-11-2023 10:04-0400 Systolic blood pressure 107 mm[Hg] Vivek Smith MD Work Phone: [facility] 11-22-2023 10:29-0400 Body temperature 98.2 [degF] Chair Van Buren Work Phone: [facility] 11-22-2023 10:29-0400 Diastolic blood pressure 72 mm[Hg] Chair Van Buren Work Phone: [facility] 11-22-2023 10:29-0400 Heart rate 75 /min Chair Van Buren Work Phone: [facility] 11-22-2023 10:29-0400 Respiratory rate 18 /min Chair Danny Work Phone: [facility] 11-22-2023 10:29-0400 SaO2% (BldA) [Mass fraction] 98 % Chair Van Buren Work Phone: [facility] 11-22-2023 10:29-0400 Systolic blood pressure 115 mm[Hg] Chair Danny Work Phone: [facility] 11-20-2023 08:14-0400 Body height 169.7 cm Vivek Smith MD Work Phone: [facility] 11-20-2023 08:14-0400 Body mass index (BMI) [Ratio] 25.55 kg/m2 Vivek Smith MD Work Phone: [facility] 11-20-2023 08:14-0400 Body temperature 97.3 [degF] Vivek Smith MD Work Phone: [facility] 11-20-2023 08:14-0400 Body weight 73.57 kg Vivek Smith MD Work Phone: [facility] 11-20-2023 08:14-0400 Diastolic blood pressure 77 mm[Hg] Vivek Smith MD Work Phone: [facility] 11-20-2023 08:14-0400 Heart rate 77 /min Vivek Smith MD Work Phone: [facility] 11-20-2023 08:14-0400 Respiratory rate 16 /min Vivek Smith MD Work Phone: [facility] 11-20-2023 08:14-0400 SaO2% (BldA) [Mass fraction] 99 % Vivek Smith MD Work Phone: [facility] 11-20-2023 08:14-0400 Systolic blood pressure 134 mm[Hg] Vivek Smith MD Work Phone: [facility] 11-02-2023 12:34-0400 Body temperature 97.59 [degF] Chair Van Buren Work Phone: [facility] 11-02-2023 12:34-0400 Diastolic blood pressure 61 mm[Hg] Chair Danny Work Phone: [facility] 11-02-2023 12:34-0400 Heart rate 86 /min Chair Van Buren Work Phone: [facility] 11-02-2023 12:34-0400 Respiratory rate 18 /min Chair Van Buren Work Phone: [facility] 11-02-2023 12:34-0400 SaO2% (BldA) [Mass fraction] 98 % Chair Danny Work Phone: [facility] 11-02-2023 12:34-0400 Systolic blood pressure 104 mm[Hg] Chair Danny Work Phone: [facility] 10-31-2023 10:34-0400 Body height 169.7 cm Grace Bess MD Work Phone: [facility] 10-31-2023 10:34-0400 Body mass index (BMI) [Ratio] 24.38 kg/m2 Grace Bess MD Work Phone: [facility] 10-31-2023 10:34-0400 Body temperature 97.2 [degF] Grace Bess MD Work Phone: [facility] 10-31-2023 10:34-0400 Body weight 70.2 kg Grace Bess MD Work Phone: [facility] 10-31-2023 10:34-0400 Diastolic blood pressure 81 mm[Hg] Grace Bess MD Work Phone: [facility] 10-31-2023 10:34-0400 Heart rate 75 /min Grace Bess MD Work Phone: [facility] 10-31-2023 10:34-0400 Respiratory rate 16 /min Grace Bess MD Work Phone: [facility] 10-31-2023 10:34-0400 SaO2% (BldA) [Mass fraction] 100 % Grace Bess MD Work Phone: [facility] 10-31-2023 10:34-0400 Systolic blood pressure 118 mm[Hg] Grace Bess MD Work Phone: [facility] 10-13-2023 11:35-0400 Body temperature 97.59 [degF] Chair Danny Work Phone: [facility] 10-13-2023 11:35-0400 Diastolic blood pressure 71 mm[Hg] Chair Danny Work Phone: [facility] 10-13-2023 11:35-0400 Heart rate 83 /min Chair Van Buren Work Phone: [facility] 10-13-2023 11:35-0400 Respiratory rate 16 /min Chair Van Buren Work Phone: [facility] 10-13-2023 11:35-0400 SaO2% (BldA) [Mass fraction] 100 % Chair Danny Work Phone: [facility] 10-13-2023 11:35-0400 Systolic blood pressure 107 mm[Hg] Chair Danny Work Phone: [facility] 10-11-2023 10:02-0400 Diastolic blood pressure 67 mm[Hg] Chair Van Buren Work Phone: [facility] Comment on above: Rechecked in tx room 10-11-2023 10:02-0400 Systolic blood pressure 100 mm[Hg] Chair Danny Work Phone: [facility] Comment on above: Rechecked in tx room 10-11-2023 09:27-0400 Body height 169.7 cm Greta Wetzel PA-C Work Phone: [facility] 10-11-2023 09:27-0400 Body mass index (BMI) [Ratio] 24.48 kg/m2 Greta Wetzel PA-C Work Phone: [facility] 10-11-2023 09:27-0400 Body temperature 98.01 [degF] Greta Rashard PA-C Work Phone: [facility] 10-11-2023 09:27-0400 Body weight 70.5 kg Greta Rashard PA-C Work Phone: [facility] 10-11-2023 09:27-0400 Diastolic blood pressure 56 mm[Hg] Greta Rashard PA-C Work Phone: [facility] 10-11-2023 09:27-0400 Heart rate 87 /min Greta Rashard PA-C Work Phone: [facility] 10-11-2023 09:27-0400 Respiratory rate 16 /min Greta Rashard PA-C Work Phone: [facility] 10-11-2023 09:27-0400 SaO2% (BldA) [Mass fraction] 100 % Greta Rashard PA-C Work Phone: [facility] 10-11-2023 09:27-0400 Systolic blood pressure 85 mm[Hg] Greta Rashard PA-C Work Phone: [facility] 10-03-2023 11:15-0400 Body height 169.7 cm Greta Rashard PA-C Work Phone: [facility] 10-03-2023 11:15-0400 Body mass index (BMI) [Ratio] 25.56 kg/m2 Greta Rashard PA-C Work Phone: [facility] 10-03-2023 11:15-0400 Body temperature 97.5 [degF] Greta Rashard PA-C Work Phone: [facility] 10-03-2023 11:15-0400 Body weight 73.6 kg Greta Rashard PA-C Work Phone: [facility] 10-03-2023 11:15-0400 Diastolic blood pressure 53 mm[Hg] Greta Rashard PA-C Work Phone: [facility] 10-03-2023 11:15-0400 Heart rate 81 /min Greta Rashard PA-C Work Phone: [facility] 10-03-2023 11:15-0400 Respiratory rate 16 /min Greta Rashard PA-C Work Phone: [facility] 10-03-2023 11:15-0400 SaO2% (BldA) [Mass fraction] 98 % Gretaskye Cardenaser PA-C Work Phone: [facility] 10-03-2023 11:15-0400 Systolic blood pressure 83 mm[Hg] Greta Rashard PA-C Work Phone: [facility] 09-15-2023 13:05-0400 Body temperature 97.9 [degF] Chair Danny Work Phone: [facility] 09-15-2023 13:05-0400 Diastolic blood pressure 68 mm[Hg] Chair Van Buren Work Phone: [facility] 09-15-2023 13:05-0400 Heart rate 77 /min Chair Van Buren Work Phone: [facility] 09-15-2023 13:05-0400 Respiratory rate 18 /min Chair Van Buren Work Phone: [facility] 09-15-2023 13:05-0400 SaO2% (BldA) [Mass fraction] 98 % Chair Danny Work Phone: [facility] 09-15-2023 13:05-0400 Systolic blood pressure 114 mm[Hg] Chair Van Buren Work Phone: [facility] 09-13-2023 11:29-0400 Body height 169.7 cm Yordy Moncada APRN.CNP Work Phone: [facility] 09-13-2023 11:29-0400 Body mass index (BMI) [Ratio] 24.76 kg/m2 Yordy Moncada APRN.ROUNDING AND BACKING MACHINE OPERATOR Work Phone: [facility] 09-13-2023 11:29-0400 Body temperature 97.59 [degF] Yordy Moncada FORM PRESS OPERATOR.ROUNDING AND BACKING MACHINE OPERATOR Work Phone: [facility] 09-13-2023 11:29-0400 Body weight 71.3 kg Yordy Moncada FORM PRESS OPERATOR.ROUNDING AND BACKING MACHINE OPERATOR Work Phone: [facility] 09-13-2023 11:29-0400 Diastolic blood pressure 63 mm[Hg] Yordy Moncada FORM PRESS OPERATOR.ROUNDING AND BACKING MACHINE OPERATOR Work Phone: [facility] 09-13-2023 11:29-0400 Heart rate 75 /min Yordy Moncada FORM PRESS OPERATOR.ROUNDING AND BACKING MACHINE OPERATOR Work Phone: [facility] 09-13-2023 11:29-0400 Respiratory rate 16 /min Yordy Moncada FORM PRESS OPERATOR.ROUNDING AND BACKING MACHINE OPERATOR Work Phone: [facility] 09-13-2023 11:29-0400 SaO2% (BldA) [Mass fraction] 99 % Yordy Moncada FORM PRESS OPERATOR.ROUNDING AND BACKING MACHINE OPERATOR Work Phone: [facility] 09-13-2023 11:29-0400 Systolic blood pressure 106 mm[Hg] Yordy Moncada FORM PRESS OPERATOR.ROUNDING AND BACKING MACHINE OPERATOR Work Phone: [facility] 08-23-2023 10:36-0400 Body height 169.7 cm Grace Bess MD Work Phone: [facility] 08-23-2023 10:36-0400 Body temperature 97.59 [degF] Grace Bess MD Work Phone: [facility] 08-23-2023 10:36-0400 Body weight 72.5 kg Grace Bess MD Work Phone: [facility] 08-23-2023 10:36-0400 Diastolic blood pressure 72 mm[Hg] Grace Bess MD Work Phone: [facility] 08-23-2023 10:36-0400 Heart rate 88 /min Grace Bess MD Work Phone: [facility] 08-23-2023 10:36-0400 Respiratory rate 16 /min Grace Bess MD Work Phone: [facility] 08-23-2023 10:36-0400 SaO2% (BldA) [Mass fraction] 98 % Grace Bess MD Work Phone: [facility] 08-23-2023 10:36-0400 Systolic blood pressure 108 mm[Hg] Grace Bess MD Work Phone: [facility] 08-04-2023 12:40-0400 Body temperature 97.5 [degF] Chair Van Buren Work Phone: [facility] 08-04-2023 12:40-0400 Diastolic blood pressure 64 mm[Hg] Chair Danny Work Phone: [facility] 08-04-2023 12:40-0400 Heart rate 82 /min Chair Van Buren Work Phone: [facility] 08-04-2023 12:40-0400 Respiratory rate 16 /min Chair Van Buren Work Phone: [facility] 08-04-2023 12:40-0400 SaO2% (BldA) [Mass fraction] 98 % Chair Danny Work Phone: [facility] 08-04-2023 12:40-0400 Systolic blood pressure 95 mm[Hg] Chair Van Buren Work Phone: [facility] 08-02-2023 10:32-0400 Body height 169.7 cm Grace Bess MD Work Phone: [facility] 08-02-2023 10:32-0400 Body temperature 97.5 [degF] Grace Bess MD Work Phone: [facility] 08-02-2023 10:32-0400 Body weight 71.2 kg Grace Bess MD Work Phone: [facility] 08-02-2023 10:32-0400 Diastolic blood pressure 68 mm[Hg] Grace Bess MD Work Phone: [facility] 08-02-2023 10:32-0400 Heart rate 85 /min Grace Bess MD Work Phone: [facility] 08-02-2023 10:32-0400 Respiratory rate 16 /min Grace Bess MD Work Phone: [facility] 08-02-2023 10:32-0400 SaO2% (BldA) [Mass fraction] 100 % Grace Bess MD Work Phone: [facility] 08-02-2023 10:32-0400 Systolic blood pressure 96 mm[Hg] Grace Bess MD Work Phone: [facility] 07-21-2023 11:57-0500 Body temperature 98.1 [degF] Chair Van Buren Work Phone: [facility] 07-21-2023 11:57-0500 Diastolic blood pressure 65 mm[Hg] Chair Danny Work Phone: [facility] 07-21-2023 11:57-0500 Heart rate 78 /min Chair Danny Work Phone: [facility] 07-21-2023 11:57-0500 Respiratory rate 18 /min Chair Van Buren Work Phone: [facility] 07-21-2023 11:57-0500 SaO2% (BldA) [Mass fraction] 100 % Chair Van Buren Work Phone: [facility] 07-21-2023 11:57-0500 Systolic blood pressure 96 mm[Hg] Chair Van Buren Work Phone: [facility] 07-19-2023 10:14-0500 Body height 169.7 cm Yordy Moncada APRN.ROUNDING AND BACKING MACHINE OPERATOR Work Phone: [facility] 07-19-2023 10:14-0500 Body temperature 97.59 [degF] Yordy Moncada APRN.ROUNDING AND BACKING MACHINE OPERATOR Work Phone: [facility] 07-19-2023 10:14-0500 Body weight 71.5 kg Yordy Moncada APRN.ROUNDING AND BACKING MACHINE OPERATOR Work Phone: [facility] 07-19-2023 10:14-0500 Diastolic blood pressure 58 mm[Hg] Yordy Moncada FORM PRESS OPERATOR.ROUNDING AND BACKING MACHINE OPERATOR Work Phone: [facility] 07-19-2023 10:14-0500 Heart rate 67 /min Yordy Moncada FORM PRESS OPERATOR.ROUNDING AND BACKING MACHINE OPERATOR Work Phone: [facility] 07-19-2023 10:14-0500 Respiratory rate 16 /min Yordy Moncada FORM PRESS OPERATOR.ROUNDING AND BACKING MACHINE OPERATOR Work Phone: [facility] 07-19-2023 10:14-0500 SaO2% (BldA) [Mass fraction] 99 % Yordy Moncada APRN.ROUNDING AND BACKING MACHINE OPERATOR Work Phone: [facility] 07-19-2023 10:14-0500 Systolic blood pressure 100 mm[Hg] Yordy Moncada FORM PRESS OPERATOR.ROUNDING AND BACKING MACHINE OPERATOR Work Phone: [facility] 07-07-2023 12:40-0500 Body temperature 97.7 [degF] Chair Van Buren Work Phone: [facility] 07-07-2023 12:40-0500 Diastolic blood pressure 69 mm[Hg] Chair Danny Work Phone: [facility] 07-07-2023 12:40-0500 Heart rate 75 /min Chair Danny Work Phone: [facility] 07-07-2023 12:40-0500 Respiratory rate 18 /min Chair Van Buren Work Phone: [facility] 07-07-2023 12:40-0500 SaO2% (BldA) [Mass fraction] 98 % Chair Danny Work Phone: [facility] 07-07-2023 12:40-0500 Systolic blood pressure 103 mm[Hg] Chair Van Buren Work Phone: [facility] 07-05-2023 10:46-0500 Body height 169.7 cm Yordy Moncada APRN.ROUNDING AND BACKING MACHINE OPERATOR Work Phone: [facility] 07-05-2023 10:46-0500 Body temperature 97 [degF] Yordy Moncada APRN.ROUNDING AND BACKING MACHINE OPERATOR Work Phone: [facility] 07-05-2023 10:46-0500 Body weight 72.3 kg Yordy Moncada APRN.ROUNDING AND BACKING MACHINE OPERATOR Work Phone: [facility] 07-05-2023 10:46-0500 Diastolic blood pressure 68 mm[Hg] Yordy Moncada APRN.ROUNDING AND BACKING MACHINE OPERATOR Work Phone: [facility] 07-05-2023 10:46-0500 Heart rate 92 /min Yordy Moncada APRN.ROUNDING AND BACKING MACHINE OPERATOR Work Phone: [facility] 07-05-2023 10:46-0500 Respiratory rate 16 /min Yordy Moncada APRN.ROUNDING AND BACKING MACHINE OPERATOR Work Phone: [facility] 07-05-2023 10:46-0500 SaO2% (BldA) [Mass fraction] 97 % Yordy Moncada APRN.ROUNDING AND BACKING MACHINE OPERATOR Work Phone: [facility] 07-05-2023 10:46-0500 Systolic blood pressure 96 mm[Hg] Yordy Moncada APRN.ROUNDING AND BACKING MACHINE OPERATOR Work Phone: [facility] 06-23-2023 10:28-0500 Body temperature 97.7 [degF] Chair Van Buren Work Phone: [facility] 06-23-2023 10:28-0500 Diastolic blood pressure 76 mm[Hg] Chair Van Buren Work Phone: [facility] 06-23-2023 10:28-0500 Heart rate 83 /min Chair Van Buren Work Phone: [facility] 06-23-2023 10:28-0500 Respiratory rate 16 /min Chair Danny Work Phone: [facility] 06-23-2023 10:28-0500 SaO2% (BldA) [Mass fraction] 100 % Chair Van Buren Work Phone: [facility] 06-23-2023 10:28-0500 Systolic blood pressure 117 mm[Hg] Chair Delgado Work Phone: [facility] 05-05-2023 12:59-0500 Body height 171.4 cm Grace Bess MD Work Phone: [facility] 05-05-2023 12:59-0500 Body temperature 97 [degF] Grace Bess MD Work Phone: [facility] 05-05-2023 12:59-0500 Body weight 73.9 kg Grace Bess MD Work Phone: [facility] 05-05-2023 12:59-0500 Diastolic blood pressure 80 mm[Hg] Grace Bess MD Work Phone: [facility] 05-05-2023 12:59-0500 Heart rate 90 /min Grace Bess MD Work Phone: [facility] 05-05-2023 12:59-0500 Respiratory rate 20 /min Grace Bess MD Work Phone: [facility] 05-05-2023 12:59-0500 SaO2% (BldA) [Mass fraction] 100 % Grace Bess MD Work Phone: [facility] 05-05-2023 12:59-0500 Systolic blood pressure 137 mm[Hg] Grace Bess MD Work Phone: [facility] 04-05-2023 13:49-0500 Body height 171.4 cm Yordy Moncada APRN.ROUNDING AND BACKING MACHINE OPERATOR Work Phone: [facility] 04-05-2023 13:49-0500 Body temperature 97.59 [degF] Yordy Moncada FORM PRESS OPERATOR.ROUNDING AND BACKING MACHINE OPERATOR Work Phone: [facility] 04-05-2023 13:49-0500 Body weight 77.84 kg Yordy Moncada FORM PRESS OPERATOR.ROUNDING AND BACKING MACHINE OPERATOR Work Phone: [facility] 04-05-2023 13:49-0500 Diastolic blood pressure 69 mm[Hg] Yordy Moncada FORM PRESS OPERATOR.ROUNDING AND BACKING MACHINE OPERATOR Work Phone: [facility] 04-05-2023 13:49-0500 Heart rate 88 /min Yordy Moncada FORM PRESS OPERATOR.ROUNDING AND BACKING MACHINE OPERATOR Work Phone: [facility] 04-05-2023 13:49-0500 Respiratory rate 16 /min Yordy Moncada FORM PRESS OPERATOR.ROUNDING AND BACKING MACHINE OPERATOR Work Phone: [facility] 04-05-2023 13:49-0500 SaO2% (BldA) [Mass fraction] 99 % Yordy Moncada FORM PRESS OPERATOR.ROUNDING AND BACKING MACHINE OPERATOR Work Phone: [facility] 04-05-2023 13:49-0500 Systolic blood pressure 100 mm[Hg] Yordy Moncada FORM PRESS OPERATOR.ROUNDING AND BACKING MACHINE OPERATOR Work Phone: [facility] 03-30-2023 13:19-0500 Diastolic blood pressure 67 mm[Hg] Greta Rashard PA-C Work Phone: [facility] 03-30-2023 13:19-0500 Systolic blood pressure 116 mm[Hg] Greta Rashard PA-C Work Phone: [facility] 03-30-2023 13:15-0500 Body height 171.4 cm Greta Rashard PA-C Work Phone: [facility] 03-30-2023 13:15-0500 Body temperature 97.59 [degF] Greta Rashard PA-C Work Phone: [facility] 03-30-2023 13:15-0500 Body weight 77.2 kg Greta Rashard PA-C Work Phone: [facility] 03-30-2023 13:15-0500 Heart rate 90 /min Greta Rashard PA-C Work Phone: [facility] 03-30-2023 13:15-0500 Respiratory rate 16 /min Rgeta Rashard PA-C Work Phone: [facility] 03-30-2023 13:15-0500 SaO2% (BldA) [Mass fraction] 99 % Greta Wetzel PA-C Work Phone: [facility] 03-08-2023 13:32-0400 Body height 171.4 cm Grace Bess MD Work Phone: [facility] 03-08-2023 13:32-0400 Body temperature 97.59 [degF] Grace Bess MD Work Phone: [facility] 03-08-2023 13:32-0400 Body weight 78.02 kg Grace Bess MD Work Phone: [facility] 03-08-2023 13:32-0400 Diastolic blood pressure 71 mm[Hg] Grace Bess MD Work Phone: [facility] 03-08-2023 13:32-0400 Heart rate 90 /min Grace Bess MD Work Phone: [facility] 03-08-2023 13:32-0400 Respiratory rate 16 /min Grace Bess MD Work Phone: [facility] 03-08-2023 13:32-0400 SaO2% (BldA) [Mass fraction] 100 % Grace Bess MD Work Phone: [facility] 03-08-2023 13:32-0400 Systolic blood pressure 104 mm[Hg] Grace Bess MD Work Phone: [facility] 02-08-2023 12:46-0400 Body height 171.4 cm Yordy Moncada APRN.ROUNDING AND BACKING MACHINE OPERATOR Work Phone: [facility] 02-08-2023 12:46-0400 Body temperature 97.5 [degF] Yordy Moncada FORM PRESS OPERATOR.ROUNDING AND BACKING MACHINE OPERATOR Work Phone: [facility] 02-08-2023 12:46-0400 Body weight 81.1 kg Yordy Moncada FORM PRESS OPERATOR.ROUNDING AND BACKING MACHINE OPERATOR Work Phone: [facility] 02-08-2023 12:46-0400 Diastolic blood pressure 63 mm[Hg] Yordy Moncada FORM PRESS OPERATOR.ROUNDING AND BACKING MACHINE OPERATOR Work Phone: [facility] 02-08-2023 12:46-0400 Heart rate 86 /min Yordy Moncada FORM PRESS OPERATOR.ROUNDING AND BACKING MACHINE OPERATOR Work Phone: [facility] 02-08-2023 12:46-0400 Respiratory rate 16 /min Yordy Moncada FORM PRESS OPERATOR.ROUNDING AND BACKING MACHINE OPERATOR Work Phone: [facility] 02-08-2023 12:46-0400 SaO2% (BldA) [Mass fraction] 100 % Yordy Moncada FORM PRESS OPERATOR.ROUNDING AND BACKING MACHINE OPERATOR Work Phone: [facility] 02-08-2023 12:46-0400 Systolic blood pressure 117 mm[Hg] Yordy Moncada FORM PRESS OPERATOR.ROUNDING AND BACKING MACHINE OPERATOR Work Phone: [facility] 02-01-2023 11:16-0400 Body height 171.4 cm Grace Bess MD Work Phone: [facility] 02-01-2023 11:16-0400 Body temperature 97.3 [degF] Grace Bess MD Work Phone: [facility] 02-01-2023 11:16-0400 Body weight 79.74 kg Grace Bess MD Work Phone: [facility] 02-01-2023 11:16-0400 Diastolic blood pressure 70 mm[Hg] Grace Bess MD Work Phone: [facility] 02-01-2023 11:16-0400 Heart rate 81 /min Grace Bess MD Work Phone: [facility] 02-01-2023 11:16-0400 Respiratory rate 16 /min Grace Bess MD Work Phone: [facility] 02-01-2023 11:16-0400 SaO2% (BldA) [Mass fraction] 99 % Grace Bess MD Work Phone: [facility] 02-01-2023 11:16-0400 Systolic blood pressure 104 mm[Hg] Grace Bess MD Work Phone: [facility] 01-04-2023 13:00-0400 Body height 171.4 cm Grace Bess MD Work Phone: [facility] 01-04-2023 13:00-0400 Body temperature 97.2 [degF] Grace Bess MD Work Phone: [facility] 01-04-2023 13:00-0400 Body weight 82.74 kg Grace Bess MD Work Phone: [facility] 01-04-2023 13:00-0400 Diastolic blood pressure 63 mm[Hg] Grace Bess MD Work Phone: [facility] 01-04-2023 13:00-0400 Heart rate 78 /min Grace Bess MD Work Phone: [facility] 01-04-2023 13:00-0400 Respiratory rate 18 /min Grace Bess MD Work Phone: [facility] 01-04-2023 13:00-0400 SaO2% (BldA) [Mass fraction] 100 % Grace Bess MD Work Phone: [facility] 01-04-2023 13:00-0400 Systolic blood pressure 104 mm[Hg] Grace Bess MD Work Phone: [facility] 12-21-2022 09:40-0400 Body height 171.4 cm Greta Wetzel PA-C Work Phone: [facility] 12-21-2022 09:40-0400 Body temperature 97.11 [degF] Greta Wetzel PA-C Work Phone: [facility] 12-21-2022 09:40-0400 Body weight 82.64 kg Greta Wetzel PA-C Work Phone: [facility] 12-21-2022 09:40-0400 Diastolic blood pressure 68 mm[Hg] Greta Rashard PA-C Work Phone: [facility] 12-21-2022 09:40-0400 Heart rate 94 /min Greta Rashard PA-C Work Phone: [facility] 12-21-2022 09:40-0400 Respiratory rate 20 /min Greta Rashard PA-C Work Phone: [facility] 12-21-2022 09:40-0400 SaO2% (BldA) [Mass fraction] 100 % Greta Rashard PA-C Work Phone: [facility] 12-21-2022 09:40-0400 Systolic blood pressure 103 mm[Hg] Greta Rashard PA-C Work Phone: [facility] 12-15-2022 16:25-0400 Diastolic blood pressure 74 mm[Hg] II Giovanni Salinas Work Phone: [facility] 12-15-2022 16:25-0400 Heart rate 67 /min II Giovanni Salinas Work Phone: [facility] 12-15-2022 16:25-0400 Respiratory rate 18 /min II Giovanni Salinas Work Phone: [facility] 12-15-2022 16:25-0400 SaO2% (BldA) [Mass fraction] 100 % II Giovanni Salinas Work Phone: [facility] 12-15-2022 16:25-0400 Systolic blood pressure 105 mm[Hg] II Giovanni Salinas Work Phone: [facility] 12-15-2022 15:19-0400 Body height 170.18 cm II Giovanni Salinas Work Phone: [facility] 12-15-2022 15:19-0400 Body temperature 97.5 [degF] II Giovannialf Salinas Work Phone: [facility] 12-15-2022 15:19-0400 Body weight 85.9 kg MARIO Salinas Work Phone: [facility] 12-05-2022 11:14-0400 Body height 171.4 cm Greta Rashard PA-C Work Phone: [facility] 12-05-2022 11:14-0400 Body temperature 97 [degF] Greta Rashard PA-C Work Phone: [facility] 12-05-2022 11:14-0400 Body weight 83.55 kg Greta Rashard PA-C Work Phone: [facility] 12-05-2022 11:14-0400 Diastolic blood pressure 51 mm[Hg] Greta Rashard PA-C Work Phone: [facility] 12-05-2022 11:14-0400 Heart rate 97 /min Greta Rashard PA-C Work Phone: [facility] 12-05-2022 11:14-0400 Respiratory rate 16 /min Greta Rashard PA-C Work Phone: [facility] 12-05-2022 11:14-0400 SaO2% (BldA) [Mass fraction] 100 % Greta Rashard PA-C Work Phone: [facility] 12-05-2022 11:14-0400 Systolic blood pressure 97 mm[Hg] Greta Rashard PA-C Work Phone: [facility] 11-30-2022 10:33-0400 Body height 171.4 cm Grace Bess MD Work Phone: [facility] 11-30-2022 10:33-0400 Body temperature 96.69 [degF] Grace Bess MD Work Phone: [facility] 11-30-2022 10:33-0400 Body weight 83.92 kg Grace Bess MD Work Phone: [facility] 11-30-2022 10:33-0400 Diastolic blood pressure 67 mm[Hg] Grace Bess MD Work Phone: [facility] 11-30-2022 10:33-0400 Heart rate 68 /min Grace Bess MD Work Phone: [facility] 11-30-2022 10:33-0400 Respiratory rate 16 /min Grace Bess MD Work Phone: [facility] 11-30-2022 10:33-0400 SaO2% (BldA) [Mass fraction] 98 % Grace Bess MD Work Phone: [facility] 11-30-2022 10:33-0400 Systolic blood pressure 117 mm[Hg] Grace Bess MD Work Phone: [facility] 11-23-2022 13:45-0400 Body height 169.8 cm Greta Rashard PA-C Work Phone: [facility] 11-23-2022 13:45-0400 Body temperature 97.3 [degF] Greta Rashard PA-C Work Phone: [facility] 11-23-2022 13:45-0400 Body weight 83.64 kg Greta Rashard PA-C Work Phone: [facility] 11-23-2022 13:45-0400 Diastolic blood pressure 64 mm[Hg] Greta Rashard PA-C Work Phone: [facility] 11-23-2022 13:45-0400 Heart rate 92 /min Greta Rashard PA-C Work Phone: [facility] 11-23-2022 13:45-0400 Respiratory rate 16 /min Greta Rashard PA-C Work Phone: [facility] 11-23-2022 13:45-0400 SaO2% (BldA) [Mass fraction] 100 % Greta Rashard PA-C Work Phone: [facility] 11-23-2022 13:45-0400 Systolic blood pressure 106 mm[Hg] Greta Rashard PA-C Work Phone: [facility] 11-10-2022 09:41-0400 Body height 169.8 cm Grace Bess MD Work Phone: [facility] 11-10-2022 09:41-0400 Body temperature 97.3 [degF] Grace Bess MD Work Phone: [facility] 11-10-2022 09:41-0400 Body weight 82.64 kg Grace Bess MD Work Phone: [facility] 11-10-2022 09:41-0400 Diastolic blood pressure 77 mm[Hg] Grace Bess MD Work Phone: [facility] 11-10-2022 09:41-0400 Heart rate 80 /min Grace Bess MD Work Phone: [facility] 11-10-2022 09:41-0400 Respiratory rate 16 /min Grace eBss MD Work Phone: [facility] 11-10-2022 09:41-0400 SaO2% (BldA) [Mass fraction] 99 % Grace Bess MD Work Phone: [facility] 11-10-2022 09:41-0400 Systolic blood pressure 110 mm[Hg] Grace Bess MD Work Phone: [facility] 09-29-2022 10:19-0400 Body height 169.8 cm Grace Bess MD Work Phone: [facility] 09-29-2022 10:19-0400 Body temperature 97.59 [degF] Grace Bess MD Work Phone: [facility] 09-29-2022 10:19-0400 Body weight 90.27 kg Grace Bess MD Work Phone: [facility] 09-29-2022 10:19-0400 Diastolic blood pressure 74 mm[Hg] Grace Bess MD Work Phone: [facility] 09-29-2022 10:19-0400 Heart rate 69 /min Grace Bess MD Work Phone: [facility] 09-29-2022 10:19-0400 Respiratory rate 16 /min Grace Bess MD Work Phone: [facility] 09-29-2022 10:19-0400 SaO2% (BldA) [Mass fraction] 97 % Grace Bess MD Work Phone: [facility] 09-29-2022 10:19-0400 Systolic blood pressure 140 mm[Hg] Grace Bess MD Work Phone: [facility] 08-02-2022 10:20-0400 Body height 169.8 cm Grace Bess MD Work Phone: [facility] 08-02-2022 10:20-0400 Body temperature 97.59 [degF] Grace Bess MD Work Phone: [facility] 08-02-2022 10:20-0400 Body weight 90.81 kg Grace Bess MD Work Phone: [facility] 08-02-2022 10:20-0400 Diastolic blood pressure 74 mm[Hg] Grace Bess MD Work Phone: [facility] 08-02-2022 10:20-0400 Heart rate 75 /min Grace Bess MD Work Phone: [facility] 08-02-2022 10:20-0400 Respiratory rate 16 /min Grace Bess MD Work Phone: [facility] 08-02-2022 10:20-0400 SaO2% (BldA) [Mass fraction] 99 % Grace Bess MD Work Phone: [facility] 08-02-2022 10:20-0400 Systolic blood pressure 145 mm[Hg] Grace Bess MD Work Phone: [facility] 06-29-2022 10:37-0500 Body height 169.8 cm Grace Bess MD Work Phone: [facility] 06-29-2022 10:37-0500 Body temperature 97.59 [degF] Grace Bess MD Work Phone: [facility] 06-29-2022 10:37-0500 Body weight 89.45 kg Grace Bess MD Work Phone: [facility] 06-29-2022 10:37-0500 Diastolic blood pressure 77 mm[Hg] Grace Bess MD Work Phone: [facility] 06-29-2022 10:37-0500 Heart rate 81 /min Grace Bess MD Work Phone: [facility] 06-29-2022 10:37-0500 Respiratory rate 18 /min Grace Bess MD Work Phone: [facility] 06-29-2022 10:37-0500 SaO2% (BldA) [Mass fraction] 99 % Grace Bess MD Work Phone: [facility] 06-29-2022 10:37-0500 Systolic blood pressure 137 mm[Hg] Grace Bess MD Work Phone: [facility] 05-11-2022 09:23-0500 Body height 169.8 cm Grace Bess MD Work Phone: [facility] 05-11-2022 09:23-0500 Body temperature 97.5 [degF] Grace Bess MD Work Phone: [facility] 05-11-2022 09:23-0500 Body weight 88.72 kg Grace Bess MD Work Phone: [facility] 05-11-2022 09:23-0500 Diastolic blood pressure 70 mm[Hg] Grace Bess MD Work Phone: [facility] 05-11-2022 09:23-0500 Heart rate 76 /min Grace Bess MD Work Phone: [facility] 05-11-2022 09:23-0500 Respiratory rate 16 /min Grace Bess MD Work Phone: [facility] 05-11-2022 09:23-0500 SaO2% (BldA) [Mass fraction] 98 % Grace Bess MD Work Phone: [facility] 05-11-2022 09:23-0500 Systolic blood pressure 130 mm[Hg] Grace Bess MD Work Phone: [facility] 04-27-2022 08:50-0500 Body height 169.8 cm Yordy Moncada APRN.ROUNDING AND BACKING MACHINE OPERATOR Work Phone: [facility] 04-27-2022 08:50-0500 Body temperature 97.39 [degF] Yordy Moncada FORM PRESS OPERATOR.ROUNDING AND BACKING MACHINE OPERATOR Work Phone: [facility] 04-27-2022 08:50-0500 Body weight 87.64 kg Yordy Moncada APRN.ROUNDING AND BACKING MACHINE OPERATOR Work Phone: [facility] 04-27-2022 08:50-0500 Diastolic blood pressure 68 mm[Hg] Yordy Moncada APRN.ROUNDING AND BACKING MACHINE OPERATOR Work Phone: [facility] 04-27-2022 08:50-0500 Heart rate 79 /min Yordy Moncada APRN.ROUNDING AND BACKING MACHINE OPERATOR Work Phone: [facility] 04-27-2022 08:50-0500 Respiratory rate 16 /min Yordy Moncada APRN.ROUNDING AND BACKING MACHINE OPERATOR Work Phone: [facility] 04-27-2022 08:50-0500 SaO2% (BldA) [Mass fraction] 99 % Yordy Moncada APRN.ROUNDING AND BACKING MACHINE OPERATOR Work Phone: [facility] 04-27-2022 08:50-0500 Systolic blood pressure 136 mm[Hg] Yordy Moncada APRN.ROUNDING AND BACKING MACHINE OPERATOR Work Phone: [facility] 04-06-2022 11:57-0500 Body height 169.8 cm Greta Rashard PA-C Work Phone: [facility] 04-06-2022 11:57-0500 Body temperature 97.3 [degF] Greta Rashard PA-C Work Phone: [facility] 04-06-2022 11:57-0500 Body weight 88.81 kg Greta Rashard PA-C Work Phone: [facility] 04-06-2022 11:57-0500 Diastolic blood pressure 73 mm[Hg] Greta Rashard PA-C Work Phone: [facility] 04-06-2022 11:57-0500 Heart rate 76 /min Greta Rashard PA-C Work Phone: [facility] 04-06-2022 11:57-0500 Respiratory rate 16 /min Greta Rashard PA-C Work Phone: [facility] 04-06-2022 11:57-0500 SaO2% (BldA) [Mass fraction] 100 % Greta Rashard PA-C Work Phone: [facility] 04-06-2022 11:57-0500 Systolic blood pressure 125 mm[Hg] Greta Rashard PA-C Work Phone: [facility] 03-30-2022 10:46-0500 Body height 169.8 cm Greta Rashard PA-C Work Phone: [facility] 03-30-2022 10:46-0500 Body temperature 97.81 [degF] Greta Rashard PA-C Work Phone: [facility] 03-30-2022 10:46-0500 Body weight 87.64 kg Greta Rashard PA-C Work Phone: [facility] 03-30-2022 10:46-0500 Diastolic blood pressure 72 mm[Hg] Greta Rashard PA-C Work Phone: [facility] 03-30-2022 10:46-0500 Heart rate 69 /min Greta Rashard PA-C Work Phone: [facility] 03-30-2022 10:46-0500 Respiratory rate 16 /min Greta Rashard PA-C Work Phone: [facility] 03-30-2022 10:46-0500 SaO2% (BldA) [Mass fraction] 98 % Greta Rashard PA-C Work Phone: [facility] 03-30-2022 10:46-0500 Systolic blood pressure 136 mm[Hg] Greta Rashard PA-C Work Phone: [facility] 03-16-2022 08:36-0400 Body height 169.8 cm Greta Rashard PA-C Work Phone: [facility] 03-16-2022 08:36-0400 Body temperature 97.81 [degF] Greta Rashard PA-C Work Phone: [facility] 03-16-2022 08:36-0400 Body weight 87.45 kg Greta Rashard PA-C Work Phone: [facility] 03-16-2022 08:36-0400 Diastolic blood pressure 75 mm[Hg] Greta Rashard PA-C Work Phone: [facility] 03-16-2022 08:36-0400 Heart rate 70 /min Greta Rashard PA-C Work Phone: [facility] 03-16-2022 08:36-0400 Respiratory rate 16 /min Greta Rashard PA-C Work Phone: [facility] 03-16-2022 08:36-0400 SaO2% (BldA) [Mass fraction] 97 % Greta Rashard PA-C Work Phone: [facility] 03-16-2022 08:36-0400 Systolic blood pressure 143 mm[Hg] Greta Rashard PA-C Work Phone: [facility] 03-09-2022 08:59-0400 Body height 172.7 cm Grace Bess MD Work Phone: [facility] 03-09-2022 08:59-0400 Body temperature 97.5 [degF] Grace Bess MD Work Phone: [facility] 03-09-2022 08:59-0400 Body weight 86.27 kg Grace Bess MD Work Phone: [facility] 03-09-2022 08:59-0400 Diastolic blood pressure 66 mm[Hg] Grace Bess MD Work Phone: [facility] 03-09-2022 08:59-0400 Heart rate 70 /min Grace Bess MD Work Phone: [facility] 03-09-2022 08:59-0400 Respiratory rate 16 /min Grace Bess MD Work Phone: [facility] 03-09-2022 08:59-0400 SaO2% (BldA) [Mass fraction] 98 % Grace Bess MD Work Phone: [facility] 03-09-2022 08:59-0400 Systolic blood pressure 143 mm[Hg] Grace Bess MD Work Phone: [facility] 02-22-2022 10:17-0400 Body height 172.7 cm Grace Bess MD Work Phone: [facility] 02-22-2022 10:17-0400 Body temperature 98.01 [degF] Grace Bess MD Work Phone: [facility] 02-22-2022 10:17-0400 Body weight 86.46 kg Grace Bess MD Work Phone: [facility] 02-22-2022 10:17-0400 Diastolic blood pressure 73 mm[Hg] Grace Bess MD Work Phone: [facility] 02-22-2022 10:17-0400 Heart rate 70 /min Grace Bess MD Work Phone: [facility] 02-22-2022 10:17-0400 Respiratory rate 16 /min Grace Bess MD Work Phone: [facility] 02-22-2022 10:17-0400 SaO2% (BldA) [Mass fraction] 99 % Grace Bess MD Work Phone: [facility] 02-22-2022 10:17-0400 Systolic blood pressure 135 mm[Hg] Grace Bess MD Work Phone: [facility] 10-22-2021 11:10-0400 Diastolic blood pressure 76 mm[Hg] Eyad Manriquez MD Work Phone: [facility] 10-22-2021 11:10-0400 Heart rate 64 /min Eyad Manriquez MD Work Phone: [facility] 10-22-2021 11:10-0400 Respiratory rate 16 /min Eyad Manriquez MD Work Phone: [facility] 10-22-2021 11:10-0400 SaO2% (BldA) [Mass fraction] 98 % Eyad Manriquez MD Work Phone: [facility] 10-22-2021 11:10-0400 Systolic blood pressure 130 mm[Hg] Eyad Manriquez MD Work Phone: [facility] 10-22-2021 10:50-0400 Body temperature 97.7 [degF] Eyad Manriquez MD Work Phone: [facility] 10-22-2021 09:48-0400 Body height 172.7 cm Eyad Manriquez MD Work Phone: [facility] 10-22-2021 09:48-0400 Body weight 86.18 kg Eyad Manriquez MD Work Phone: [facility] Encounters Encounter Date Encounter Type Care Provider Facility Start: 04-04-2024 End: 04-08-2024 Telephone encounter Allie Cortez RN Work Phone: Hematology/Oncology Comment on above: Care Coordination (C A 19.9) Start: 04-04-2024 End: 04-04-2024 ambulatory Chair Hannah Danny Work Phone: Hematology/Oncology Comment on above: Malignant neoplasm o f head of pancreas (HCC) (Primary Dx) Start: 04-02-2024 End: 04-02-2024 Clinisync Result Encounter Generic External Data Provider [facility] External Department Unsolicited Start: 04-02-2024 End: 04-02-2024 Clinisync Result Encounter Generic External Data Provider [facility] External Department Unsolicited Start: 04-02-2024 End: 04-02-2024 Patient encounter procedure Yordy Moncada APRN.CNP Work Phone: Hematology/Oncology Start: 04-02-2024 End: 04-02-2024 [...] 03-05-2024 End: 03-05-2024 ambulatory [facility] [place] Work Phone: Hematology/Oncology Comment on above: Malignant [...] 02-12-2024 End: 02-12-2024 ambulatory [facility] [place] Work Phone: Hematology/Oncology Comment on above: Malignant neoplasm o f head of pancreas (HCC) Malignant neoplasm o f head of pancreas (HCC) (Primary Dx) Start: 01-25-2024 End: 01-25-2024 ambulatory Chair 20 Danny Work Phone: Hematology/Oncology Comment on above: Malignant neoplasm o f head of pancreas (HCC) (Primary Dx) Start: 01-23-2024 End: 01-23-2024 Office outpatient visit 15 minutes Greta Wetzel [facility] Work Phone: Hematology/Oncology Comment on above: Malignant neoplasm o f head of pancreas (HCC) (Primary Dx) Start: 01-23-2024 End: 01-23-2024 ambulatory [facility] [place] Work Phone: Hematology/Oncology Comment on above: Malignant [...] 01-03-2024 Office outpatient visit 15 minutes Greta [employer] Work Phone: Hematology/Oncology Comment on above: Malignant neoplasm o f head of pancreas (HCC) (Primary Dx); Central line complication, initial encounter Start: 01-03-2024 End: 01-03-2024 ambulatory [facility] [place] [facility] Danny Work Phone: Hematology/Oncology Comment on above: Malignant neoplasm o f head of pancreas (HCC) Malignant neoplasm o f head of pancreas (HCC) (Primary Dx) Start: 01-02-2024 End: 01-10-2024 Telephone encounter Greta [employer] Work Phone: Hematology/Oncology Comment on above: Lab Orders Start: 12-29-2023 End: 12-29-2023 ambulatory KARUNAKARAVEL KARUPPASAMY Facility:[facility] Start: 12-27-2023 Telephone encounter Adina Schmitz RN [facility] Radiology Procedure Comment on above: Radiology Pre Proced ure Instructions Start: 12-26-2023 Telephone encounter Luisa Cameron RN [facility] Radiology Procedure Comment on above: Radiology Pre Proced ure Instructions Start: 12-25-2023 Telephone encounter Donnell Swenson RN [facility] Radiology Procedure Start: 12-13-2023 End: 12-13-2023 ambulatory Chair [address] [place] Work Phone: Hematology/Oncology Comment on above: Malignant neoplasm o f head of pancreas (HCC) (Primary Dx) Start: 12-11-2023 End: 12-11-2023 Patient encounter procedure Vivek Smith MD Work Phone: Hematology/Oncology Start: 12-11-2023 End: 12-11-2023 ambulatory Lab[facility] Work Phone: Hematology/Oncology Comment on above: Malignant [...] Start: 11-22-2023 End: 11-22-2023 ambulatory Chair 20 [place] Work Phone: Hematology/Oncology Comment on above: Malignant neoplasm o f head of pancreas (HCC) (Primary Dx) Refill Request; PORT ; Clinical Update Start: 11-20-2023 End: 11-20-2023 Patient encounter procedure Vivek Smith MD Work Phone: Hematology/Oncology Start: 11-20-2023 End: 11-21-2023 ambulatory Lab/[place] Work Phone: Hematology/Oncology Comment on above: Malignant neoplasm o f head of pancreas (HCC) Malignant neoplasm o f head of pancreas (HCC) (Primary Dx) Start: 11-17-2023 End: 11-17-2023 ambulatory GIOVANNI SALINAS II Facility:[facility] Start: 11-17-2023 End: 11-17-2023 Subsequent [...] 10-31-2023 End: 11-01-2023 ambulatory Lab/[place] Work Phone: Hematology/Oncology Comment on above: Malignant [...] encounter Greta woodson PA-C [facility] Comment on above: [facility] Start: [...] 10-03-2023 End: 10-03-2023 ambulatory Lab/[place] Work Phone: Hematology/Oncology Comment on above: Malignant neoplasm o f head of pancreas (HCC); Neuropathy Start: 09-25-2023 Telephone encounter Greta woodson PA-C Work Phone: Hematology/Oncology Comment on above: Lab Orders Start: 09-18-2023 Telephone encounter Josephine Slaomon RN Work Phone: Hematology/Oncology Comment on above: Care Coordination (c ough) Start: 09-15-2023 End: 09-15-2023 ambulatory Chair 20 [place] Work Phone: Hematology/Oncology Comment on above: Malignant neoplasm o f head of pancreas (HCC) (Primary Dx) Start: 09-13-2023 End: 09-13-2023 Nutrition therapy Yordy Moncada APRN.ROBERT Work Phone: Hematology/Oncology Comment on above: Malignant [...] 09-13-2023 End: 09-13-2023 ambulatory Lab/[place] Work Phone: Hematology/Oncology Comment on above: Malignant neoplasm o f head of pancreas (HCC) Malignant neoplasm o f head of pancreas (HCC) (Primary Dx) Start: 08-25-2023 End: 08-25-2023 ambulatory GIOVANNI SALINAS II Facility:[facility] Start: 08-23-2023 End: 08-23-2023 Patient encounter procedure Grace Bess MD Work Phone: [facility] Start: 08-23-2023 End: 08-23-2023 ambulatory Lab/[place] Work Phone: Hematology/Oncology Comment on above: Malignant neoplasm o f head of pancreas (HCC) Malignant neoplasm o f head of pancreas (HCC) (Primary Dx) Start: 08-18-2023 End: 08-18-2023 ambulatory GIOVANNI SALINAS II Facility:[facility] Start: 08-18-2023 End: 08-18-2023 Subsequent hospital visit by physician Arrival Time Radiology Work Phone: Radiology Pet CT Comment on above: Malignant neoplasm o f head of pancreas (HCC) [C25.0] Start: 08-09-2023 Telephone encounter Josephine Salomon RN Work Phone: Hematology/Oncology Comment on above: Care Coordination (A ppointment cancellation) Start: 08-04-2023 End: 08-04-2023 ambulatory GIOVANNI Raul SALINAS Facility:[facility] Start: 08-04-2023 End: 08-04-2023 ambulatory Chair 20 [place] Work Phone: Hematology/Oncology Comment on above: Malignant neoplasm o f head of pancreas (HCC) (Primary Dx) Start: 08-02-2023 End: 08-02-2023 Patient encounter procedure Grace Bess MD Work Phone: [place] Start: 08-02-2023 End: 08-02-2023 ambulatory Lab/[place] Work Phone: [place] Comment on above: Malignant neoplasm o f head of pancreas (HCC) (Primary Dx) Start: 08-02-2023 End: 08-02-2023 Nutrition therapy Lab/[place] Work Phone: Hematology/Oncology Comment on above: Malignant neoplasm o f head of pancreas (HCC); Type 2 diabetes mellitus without complication, with long-term current use of insulin (HCC); Neuropathy; Severe protein-calorie malnutrition (HCC) Start: 07-21-2023 End: 07-21-2023 ambulatory Chair [address] [place] Work Phone: Hematology/Oncology Comment on above: Malignant [...] End: 07-19-2023 Patient encounter procedure Yordy Moncada APRN.ROBERT Work Phone: [place] Start: 07-19-2023 End: 07-19-2023 [...] End: 07-05-2023 Patient encounter procedure Yordy Moncada APRN.ROUNDING AND BACKING MACHINE OPERATOR Work Phone: [place] Start: 07-05-2023 End: 07-05-2023 ambulatory Lab/[place] Work Phone: Hematology/Oncology Comment on above: Malignant [...] End: 06-21-2023 ambulatory GIOVANNI B SALINAS II Facility:[facility] Start: 06-21-2023 End: 06-21-2023 ambulatory GIOVANNI B SALINAS II Facility:[facility] Start: 06-09-2023 End: 06-09-2023 ambulatory GIOVANNI B SALINAS II Facility:[facility] Start: 06-07-2023 End: 06-07-2023 ambulatory GIOVANNI B SALINAS II Facility:[facility] Start: 06-07-2023 End: 06-07-2023 ambulatory GIOVANNI B SALINAS II Facility:[facility] Start: 05-24-2023 End: 05-24-2023 ambulatory GIOVANNI B SALINAS II Facility:[facility] Start: 05-18-2023 End: 05-18-2023 ambulatory GIOVANNI B BRAD II Facility:[facility] Start: 05-18-2023 End: 05-18-2023 Subsequent hospital visit by physician Arrival Time Radiology Work Phone: Radiology Pet CT Comment on above: Malignant neoplasm o f head of pancreas (HCC) [C25.0] Start: 05-12-2023 End: 05-12-2023 ambulatory GIOVANNI B BRAD II Facility:[facility] Start: 05-08-2023 Telephone encounter Grace rebolledo MD Work Phone: Hematology/Oncology Comment on above: Orders Start: 05-05-2023 End: 05-05-2023 Patient encounter procedure Grace Bess MD Work Phone: [employer] Start: 05-05-2023 End: 05-08-2023 ambulatory Grace Bess MD Work Phone: Hematology/Oncology Comment on above: Malignant neoplasm o f head of pancreas (HCC) (Primary Dx) Start: 05-05-2023 End: 05-05-2023 Nutrition therapy Lab/[place] Work Phone: Hematology/Oncology Comment on above: Type 2 diabetes chris itus without complication, with long-term current use of insulin (HCC); Severe protein-calorie malnutrition (HCC); Malignant neoplasm of head of pancreas (HCC); Anemia, unspecified type Start: 04-27-2023 End: 04-27-2023 ambulatory GIOVANNI Raul SALINAS Not Available Start: 04-25-2023 Patient encounter status Generic Provider [facility] Start: 04-07-2023 Telephone encounter Josephine Salomon RN Work Phone: Hematology/Oncology Comment on above: Care Coordination (T umor marker results) Start: 04-05-2023 End: 04-05-2023 Nutrition therapy Yordy Moncada APRN.ROUNDING AND BACKING MACHINE OPERATOR Work Phone: Hematology/Oncology Comment on above: Malignant neoplasm o f head of pancreas (HCC) (Primary Dx); Type 2 diabetes mellitus without complication, with long-term current use of insulin (HCC); Severe protein-calorie malnutrition (HCC); Anemia, unspecified type Start: 04-05-2023 End: 04-05-2023 Patient encounter procedure Yordy Moncada APRN.ROUNDING AND BACKING MACHINE OPERATOR Work Phone: [facility] Start: 04-05-2023 End: 04-05-2023 ambulatory Lab/[place] Work Phone: Hematology/Oncology Comment on above: Malignant neoplasm o f other parts of pancreas (HCC); Type 2 diabetes mellitus without complication, with long-term current use of insulin (HCC); LINDSEY (dyspnea on exertion) Malignant neoplasm o f head of pancreas (HCC) (Primary Dx) Start: 04-04-2023 Telephone encounter Greta QUINTEROC Work Phone: Hematology/Oncology Comment on above: Results; Care Coordi nation (Tumor marker results) Start: 03-30-2023 End: 03-30-2023 Nutrition therapy Greta QUINTEROC Work Phone: Hematology/Oncology Comment on above: Malignant [...] 02-08-2023 End: 02-08-2023 Nutrition therapy Yordy Moncada APRN.ROUNDING AND BACKING MACHINE OPERATOR Work Phone: Hematology/Oncology Comment on above: Malignant neoplasm o f other parts of pancreas (HCC) (Primary Dx); Type 2 diabetes mellitus without complication, with long-term current use of insulin (HCC); LINDSEY (dyspnea on exertion); Severe protein-calorie malnutrition (HCC) Start: 02-08-2023 End: 02-08-2023 Patient encounter procedure Yordy Moncada APRN.ROUNDING AND BACKING MACHINE OPERATOR Work Phone: [place] Start: 02-01-2023 Telephone encounter [...] Start: 12-21-2022 End: 12-21-2022 ambulatory Lab/[place] Work Phone: Hematology/Oncology Comment on above: Malignant neoplasm o f other parts of pancreas (HCC) (Primary Dx) LINDSEY (dyspnea on exer tion) (Primary Dx) Start: 12-15-2022 End: 12-15-2022 Emergency department patient visit II Giovanni Brad Work Phone: [facility] Work Phone: Start: 12-14-2022 End: 12-14-2022 ambulatory Lab[facility] Work Phone: Hematology/Oncology Comment on above: Malignant neoplasm o f head of pancreas (HCC) Malignant neoplasm o f head of pancreas (HCC) (Primary Dx) Start: 12-06-2022 Patient encounter procedure [facility] Provider [facility] Start: 12-05-2022 Telephone encounter Grace rebolledo MD [...] encounter procedure Greta Wetzel PA-C Work Phone: [employer] Start: 12-05-2022 End: 12-05-2022 ambulatory Lab[facility] Work Phone: Hematology/Oncology Comment on above: Malignant neoplasm o f head of pancreas (HCC) Start: 11-30-2022 End: 11-30-2022 Patient encounter procedure Grace Bess MD Work Phone: [employer] Start: 11-30-2022 End: 11-30-2022 ambulatory Lab[facility] Work Phone: Hematology/Oncology Comment on above: Malignant neoplasm o f head of pancreas (HCC) Malignant neoplasm o f head of pancreas (HCC) (Primary Dx) Start: 11-23-2022 End: 11-23-2022 Nutrition therapy Greta QUINTEROC Work Phone: Hematology/Oncology Comment on above: Malignant neoplasm o f head of pancreas (HCC) (Primary Dx); Anemia, unspecified type; Type 2 diabetes mellitus without complication, with long-term current use of insulin (HCC); Severe protein-calorie malnutrition (HCC) Start: 11-23-2022 End: 11-23-2022 Patient encounter procedure Greta Jacoby QUINTEROC Work Phone: [place] Start: 11-23-2022 Telephone encounter Greta woodson PA-C Work Phone: Cancer [facility] Comment on above: Future Appointment Start: 11-23-2022 [...] Comment on above: Research (IRB# [id number] Informed Consent) Start: 11-03-2022 End: 11-03-2022 Subsequent [...] pancreas (HCC) Start: 08-03-2022 Refill Adina Colón [facility] HB-3 Comment on above: Refill [...] 06-01-2022 End: 06-01-2022 ambulatory Lab/[place] Work Phone: Hematology/Oncology Comment on above: Malignant [...] 05-11-2022 End: 05-11-2022 ambulatory Lab/[place] Work Phone: Hematology/Oncology Comment on above: Malignant neoplasm o f head of pancreas (HCC); Anemia, unspecified type Malignant neoplasm o f head of pancreas (HCC) (Primary Dx) Start: 04-27-2022 End: 04-27-2022 ambulatory Chair 12 [place] Work Phone: Hematology/Oncology Comment on above: Malignant neoplasm o f head of pancreas (HCC) (Primary Dx) Malignant neoplasm o f head of pancreas (HCC) (Primary Dx); Anemia, unspecified type Start: 04-27-2022 End: 04-27-2022 Patient encounter procedure Yordy Moncada APRN.CNP Work Phone: [employer] Start: 04-26-2022 End: 04-26-2022 ambulatory Lab/[place] Work Phone: Hematology/Oncology Comment on above: Malignant neoplasm o f head of pancreas (HCC) Start: 04-20-2022 Telephone encounter Josephine Salomon RN Work Phone: Hematology/Oncology Comment on above: Care Coordination (M edication clarification) Start: 04-20-2022 End: 04-20-2022 ambulatory Lab/[place] Work Phone: Hematology/Oncology Comment on above: Malignant [...] Telephone encounter Jose Antonio LARSON Work Phone: [facility] Comment on above: Results Start: 03-17-2022 Telephone encounter Josephine Salomon RN Work Phone: Hematology/Oncology Comment on above: Care Coordination (S tool results) Start: 03-16-2022 End: 03-16-[address] Work Phone: Nutrition Therapy Comment on above: Nutrition Counseling Start: 03-16-2022 End: 03-16-2022 Telemedicine consultation with patient Jose Antonio LAROSN Work Phone: [facility] Start: 03-16-2022 End: 03-16-2022 Patient [...] on Care Coordination (A ntiemetics transferred to [facility] in [place]) Start: 03-09-2022 End: 03-09-[address] Work Phone: Nutrition Therapy Comment on above: Nutrition Assessment Start: 03-09-2022 End: 03-09-2022 Patient encounter procedure Grace Bess MD Work Phone: [facility] Start: 03-07-2022 Telephone encounter Josephine Salomon RN [...] (Primary Dx) Start: 03-04-2022 Telephone encounter Josephine Saolmon RN Work Phone: Hematology/Oncology Comment on above: Care Coordination (A ntiemetics for treatment) Start: 02-25-2022 Telephone encounter Vel Sims RN [facility] Radiology Procedure Comment on above: Radiology Pre Proced ure Instructions Start: 02-23-2022 Orders Only Antoinette Marina RN [facility] Radiology Procedure Comment on above: Malignant [...] encounter procedure Grace Bess MD Work Phone: [facility] Start: 02-17-2022 End: 02-18-2022 Patient encounter procedure [...] End: 02-11-2021 Evaluation and management of inpatient [facility] Start: 01-22-2021 End: 02-19-[address] GIOVANNI [...] End: 04-16-2020 Patient encounter procedure FARA MONACO [facility] Start: 04-15-2020 End: 04-15-2020 Subsequent hospital visit by physician Giovanni Salinas [facility] Start: 03-16-2020 End: 03-17-2020 Patient encounter procedure GIOVANNI SALINAS [facility] Start: 03-16-2020 End: 03-16-2020 Subsequent hospital visit by physician Giovanni Salinas [facility] Start: 11-23-2019 Patient encounter status Eyad Manriquez MD Work Phone: [facility] Work Phone: Procedures Date Procedure Procedure Detail Performing Clinician Start: 04-02-2024 [facility] CANCER AG19-9 SERPL-ACNC Generic External Data Provider Start: 04-02-2024 [facility] CBC W AUTO DIFF BLD Generic External Data Provider Start: 04-02-2024 [facility] COMP METAB 2000 PNL SERPL Generic External Data Provider Start: 04-02-2024 Blood count complete auto&auto difrntl [...] 08-23-2023 Blood count complete auto&auto difrntl wbc Grcae Bess MD Work Phone: Start: 08-18-2023 Ct abdomen & pelvis w/contrast material Grace Bess MD Work Phone: Start: 08-18-2023 Ct thorax w/contrast material Grace Bess MD Work Phone: Start: 08-02-2023 Blood count complete auto&auto difrntl wbc Yordy Moncada FORM PRESS OPERATOR.ROUNDING AND BACKING MACHINE OPERATOR Work Phone: Start: 07-19-2023 Blood count complete auto&auto difrntl wbc Yordy Moncada FORM PRESS OPERATOR.ROUNDING AND BACKING MACHINE OPERATOR Work Phone: Start: 07-05-2023 [facility] CBC W [...] count complete auto&auto difrntl wbc Yordy Moncada FORM PRESS OPERATOR.ROUNDING AND BACKING MACHINE OPERATOR Work Phone: Start: 04-05-2023 Blood count complete auto&auto difrntl wbc Yordy Moncada FORM PRESS OPERATOR.ROUNDING AND BACKING MACHINE OPERATOR Work Phone: Start: 03-08-2023 Blood count complete [...] count complete auto&auto difrntl wbc Yordy Moncada FORM PRESS OPERATOR.ROUNDING AND BACKING MACHINE OPERATOR Work Phone: Start: 04-26-2022 Blood count complete [...] Detail Author Start: 12-15-2032 Urine microalbumin profile [facility] Start: 12-04-2030 Screening for malign ant neoplasm of colon [facility] Start: 11-12-2029 Screening for malign ant neoplasm of colon [facility] Start: 05-05-2026 Diabetes Screening Diabetes Screenin jania [facility] Start: 04-05-2026 Diabetes Screening Diabetes Screenin jania [facility] Start: 03-30-2026 Diabetes Screening Diabetes Screenin g [facility] Start: 03-08-2026 Diabetes Screening Diabetes Screenin g [facility] Start: 03-01-2026 Diabetes Screening Diabetes Screenin jania [facility] Start: 02-08-2026 Diabetes Screening Diabetes Screenin g [facility] Start: 02-01-2026 Diabetes Screening Diabetes Screenin g [facility] Start: 01-04-2026 DIABETES SCREEN DIABETES SCREEN [facility] Start: 12-21-2025 DIABETES SCREEN DIABETES SCREEN [facility] Start: 12-14-2025 DIABETES SCREEN DIABETES SCREEN [facility] Start: 11-30-2025 DIABETES SCREEN DIABETES SCREEN [facility] Start: 11-23-2025 DIABETES SCREEN DIABETES SCREEN [facility] Start: 11-10-2025 DIABETES SCREEN DIABETES SCREEN [facility] Start: 10-26-2025 DIABETES SCREEN DIABETES SCREEN [facility] Start: 09-29-2025 DIABETES SCREEN DIABETES SCREEN [facility] Start: 08-02-2025 DIABETES SCREEN DIABETES SCREEN [facility] Start: 06-29-2025 DIABETES SCREEN DIABETES SCREEN [facility] Start: 06-01-2025 DIABETES SCREEN [facility] Start: 05-11-2025 DIABETES SCREEN [facility]CREEN [facility] Start: 04-26-2025 DIABETES SCREEN DIABETES SCREEN [facility] Start: 04-20-2025 DIABETES SCREEN DIABETES SCREEN [facility] Start: 04-06-2025 DIABETES SCREEN [facility] Start: 03-30-2025 DIABETES SCREEN DIABETES SCREEN [facility] Start: 03-16-2025 DIABETES SCREEN DIABETES SCREEN [facility] Start: 03-07-2025 DIABETES SCREEN [facility]CREEN [facility] Start: 12-21-2024 Urine screening for protein Diabetes: Urine Protein Screening [facility] Start: 11-23-2024 Lipid 1996 panel - S dusty or Plasma Lipid Screening [facility] Start: 11-23-2024 Lipid panel Lipid Screening [facility] Start: 11-23-2024 LIPID SCREEN LIPID SCREEN [facility] Start: 11-16-2024 Screening for malign ant neoplasm of lung Lung Cancer Screening [facility] Start: 08-17-2024 Screening for malign ant neoplasm of lung Lung Cancer Screening [facility] Start: 05-28-2024 End: 05-28-2024 Patient encounter procedure 05/28/2024 11:20 AM EST Office Visit [facility] [address] [place] [address] César Leiva MD [address] [place] [address] [facility] Start: 05-18-2024 Screening for malign ant neoplasm of lung Lung Cancer Screening [facility] Start: 04-27-2024 Hemoglobin A1c measurement HbA1C [facility] Start: 04-27-2024 Pneumococcal Vaccine : 65+ Years (1 - PCV) Pneumococcal Vaccine: 65+ Years (1 - PCV) [facility] Comment on above: Postponed from 04/21 (Patient Refused) Start: 04-27-2024 Pneumococcal Vaccine : 65+ Years (1 of 2 - PCV) Pneumococcal Vaccine: 65+ Years (1 of 2 - PCV) [facility] Comment on above: Postponed from 04/21 (Patient Refused) Start: 04-26-2024 End: 04-26-2024 ambulatory 04/26/2024 11:00 AM [facility] Hematology/Oncology [address] [place] [address] [place] [address] pump disconnect Hematology/Oncology Comment on above: pump disconnect Start: 04-24-2024 End: 07-24-2024 Cancer Ag 19-9 [Units/volume] in Serum or Plasma CA 19-9 Lab Routine Malignant neoplasm of head of pancreas (HCC) Central line complication, initial encounter Neuropathy Type 2 diabetes mellitus without complication, with long-term current use of insulin (HCC) Expected: 04/24/2024, Expires: 07/24/2024 [facility] Comment on above: Expected: 04/24/2024 , Expires: 07/24/2024 Start: 04-24-2024 End: 07-24-2024 CBC W Auto Differential panel - Blood COMPLETE BLOOD COUNT AND DIFFERENTIAL Lab Routine Malignant neoplasm of head of pancreas (HCC) Central line complication, initial encounter Neuropathy Type 2 diabetes mellitus without complication, with long-term current use of insulin (HCC) Expected: 04/24/2024, Expires: 07/24/2024 [facility] Work Phone: Comment on above: Expected: 04/24/2024 , Expires: 07/24/2024 Start: 04-24-2024 End: 07-24-2024 Comprehensive metabolic 2000 panel - Serum or Plasma COMPREHENSIVE METABOLIC PANEL Lab Routine Malignant neoplasm of head of pancreas (HCC) Central line complication, initial encounter Neuropathy Type 2 diabetes mellitus without complication, with long-term current use of insulin (HCC) Expected: 04/24/2024, Expires: 07/24/2024 [facility] Comment on above: Expected: 04/24/2024 , Expires: [...] 11:15 AM EST Appointment Radiology Pet CT [address] [place] [address] CT CAP with IVC Radiology Pet CT Comment on above: CT CAP with IVC Start: 04-04-2024 End: 04-04-2024 ambulatory 04/04/2024 10:30 AM EST Infusion Center Hematology/Oncology [address] [place] [address] pump disconnect Hematology/Oncology Comment on above: pump disconnect Start: 04-01-2024 End: 04-01-2024 Patient encounter procedure 04/01/2024 2:30 PM EST Office Visit [facility] [address] [facility] [address] [place] [id number] Giovanni Salinas MD [address] [facility] [address] [place] [address] [facility] Start: 03-29-2024 End: 03-29-2024 Follow-up encounter 03/29/2024 11:00 AM EST Infusion Center Hematology/Oncology [address] [place] [address] [place] [address] 3 week follow up and chemotx Julia // pump connect Hematology/Oncology Comment on above: 3 week follow up and chemotx Julia // pump connect Start: 03-27-2024 End: 06-26-2024 Cancer Ag 19-9 [Units/volume] in Serum or Plasma CA 19-9 Lab Routine Malignant neoplasm of head of pancreas (HCC) Expected: 03/27/2024, Expires: 06/26/2024 [facility] Comment on above: Expected: 03/27/2024 , Expires: 06/26/2024 Start: 03-27-2024 End: 06-26-2024 CBC W Auto Differential panel - Blood COMPLETE BLOOD COUNT AND DIFFERENTIAL Lab Routine Malignant neoplasm of head of pancreas (HCC) Expected: 03/27/2024, Expires: 06/26/2024 [facility] Work Phone: Comment on above: Expected: 03/27/2024 , Expires: 06/26/2024 Start: 03-27-2024 End: 06-26-2024 Comprehensive metabolic 2000 panel - Serum or Plasma COMPREHENSIVE METABOLIC PANEL Lab Routine Malignant neoplasm of head of pancreas (HCC) Expected: 03/27/2024, Expires: 06/26/2024 [facility] Comment on above: Expected: 03/27/2024 , Expires: 06/26/2024 Start: 03-27-2024 End: 03-27-2024 Follow-up encounter Hematology/Oncology Comment on above: 3 week follow up and chemotx Julia // pump connect 3 week follow up and chemotx Julia-PORT // pump connect Start: 03-07-2024 End: 03-07-2024 Follow-up encounter 03/07/2024 11:00 AM [facility] Infusion Center Hematology/Oncology [address] [place] [address] [place] [address] 3 week follow up and chemotx Julia // pump connect Hematology/Oncology Comment on above: 3 week follow up and chemotx Julia // pump connect Start: 03-05-2024 End: 06-04-2024 Cancer Ag 19-9 [Units/volume] in Serum or Plasma [facility] [employer] Work Phone: Comment on above: Expected: 03/05/2024 , Expires: 06/04/2024 Start: 03-05-2024 End: 03-05-2024 Follow-up encounter Hematology/Oncology Comment on above: 3 week follow up and chemotx Julia // pump connect Start: 02-14-2024 End: 02-14-2024 Follow-up encounter 02/14/2024 10:30 AM [facility] Infusion Center Hematology/Oncology [address] [place] [address] [place] [address] 3 week follow up and chemotx Julia // pump connect Hematology/Oncology Comment on above: 3 week follow up and chemotx Julia // pump connect Start: 02-12-2024 DIABETES SCREEN DIABETES SCREEN [facility] Start: 02-12-2024 End: 02-12-2024 Follow-up encounter Hematology/Oncology Comment on above: 3 week follow up and chemotx Julia // pump connect Start: 01-27-2024 Hemoglobin A1c measurement Diabetes: Hemoglobin A1C [facility] Start: 01-25-2024 End: 01-25-2024 Follow-up encounter 01/25/2024 10:30 AM [facility] Infusion Center Hematology/Oncology [address] [place] [address] [place] [address] 3 week follow up and chemotx Julia // pump connect Hematology/Oncology Comment on above: 3 week follow up and chemotx Julia // pump connect Start: 01-23-2024 End: 04-23-2024 Cancer Ag 19-9 [Units/volume] in Serum or Plasma [facility] Comment on above: Expected: 01/23/2024 , Expires: 04/23/2024 Start: 01-23-2024 End: 04-23-2024 CBC W Auto Differential panel - Blood COMPLETE BLOOD COUNT AND DIFFERENTIAL Lab Routine Malignant neoplasm of head of pancreas (HCC) Expected: 01/23/2024, Expires: 04/23/2024 [facility] Comment on above: Expected: 01/23/2024 , Expires: 04/23/2024 Start: 01-23-2024 End: 04-23-2024 Comprehensive metabolic 2000 panel - Serum or Plasma [facility] Work Phone: Comment on above: Expected: 01/23/2024 , Expires: 04/23/2024 Start: 01-23-2024 End: 01-23-2024 Follow-up encounter Hematology/Oncology Comment on above: 3 week follow up and chemotx Julia // pump connect Start: 01-21-2024 Influenza vaccination [facility] Start: 01-05-2024 End: 01-05-2024 ambulatory Hematology/Oncology Comment on above: pump disconnect pump dc Start: 01-03-2024 End: 04-03-2024 Cancer Ag 19-9 [Units/volume] in Serum or Plasma [facility] Work Phone: Comment on above: Expected: 01/03/2024 , Expires: 04/03/2024 Start: 01-03-2024 End: 04-03-2024 CBC W Auto Differential panel - Blood COMPLETE BLOOD COUNT AND DIFFERENTIAL Lab Routine Malignant neoplasm of head of pancreas (HCC) Expected: 01/03/2024, Expires: 04/03/2024 [facility] Comment on above: Expected: 01/03/2024 , Expires: 04/03/2024 Start: 01-03-2024 End: 04-03-2024 Comprehensive metabolic 2000 panel - Serum or Plasma COMPREHENSIVE METABOLIC PANEL Lab Routine Malignant neoplasm of head of pancreas (HCC) Expected: 01/03/2024, Expires: 04/03/2024 [facility] Work Phone: Comment on above: Expected: 01/03/2024 , Expires: 04/03/2024 Start: 01-03-2024 End: 01-03-2024 ambulatory 01/03/2024 9:45 AM EDT Infusion Center Hematology/Oncology [address] [place] [address] Julia Hematology/Oncology Comment on above: Julia Start: 01-03-2024 End: 01-03-2024 Follow-up encounter Hematology/Oncology Comment on above: 3 week follow up and chemotx Julia // pump connect Start: 12-29-2023 End: 12-29-2023 Admission to same day surgery center 12/29/2023 10:00 AM EDT - 12/29/2023 11:30 AM EDT Surgery [facility] Radiology Procedure [id number] [place] [address] Jhonny Morgan MD [address] [address] REMOVAL CATHETER PORT-A-CATH [facility] Radiology Procedure Comment on above: REMOVAL CATHETER POR T-A-CATH Start: 12-29-2023 End: 12-29-2023 Insj tunneled ctr vad w/subq port age 6 yr/> INSERTION PORT VENOUS ACCESS ADULT Central line complication, initial encounter 12/29/2023 10:00 AM EDT [facility] Start: 12-29-2023 End: 12-29-2023 Rmvl [place] cvc w/o subq port/medical billing instructor REMOVAL CATHETER PORT-A-CATH Central line complication, initial encounter 12/29/2023 10:00 AM EDT AV [facility] Start: 12-29-2023 Subsequent hospital visit by physician 12/29/2023 10:00 AM EDT Hospital Encounter [facility] Radiology Procedure [id number] [place] [address] Jhonny Morgan MD [address] [place] [address] Central line complication, initial encounter [T82.9XXA] [facility] Radiology Procedure Comment on above: Central line complic ation, initial encounter [T82.9XXA] Start: 12-13-2023 End: 12-13-2023 ambulatory 12/13/2023 11:00 AM EDT Infusion Center Hematology/Oncology [address] [place] [address] pump disconnect Hematology/Oncology Comment on above: pump [...] pancreas (HCC) Expected: 11/21/2023 (Approximate), Expires: 02/20/2024 [facility] Comment on above: Expected: 11/21/2023 (Approximate), Expires: 02/20/2024 Start: 11-21-2023 End: 02-20-2024 CBC W Auto Differential panel - Blood COMPLETE BLOOD COUNT AND DIFFERENTIAL Lab Routine Malignant neoplasm of head of pancreas (HCC) Expected: 11/21/2023 (Approximate), Expires: 02/20/2024 [facility] Comment on above: Expected: 11/21/2023 (Approximate), Expires: 02/20/2024 Start: 11-21-2023 End: 02-20-2024 Comprehensive metabolic 2000 panel - Serum or Plasma COMPREHENSIVE METABOLIC PANEL Lab Routine Malignant neoplasm of head of pancreas (HCC) Expected: 11/21/2023 (Approximate), Expires: 02/20/2024 [facility] Comment on above: Expected: 11/21/2023 (Approximate), Expires: 02/20/2024 Start: 11-21-2023 End: 11-29-2024 CT Abdomen and Pelvis W contrast IV CT ABD/PEL W IVCON Radiology Routine Malignant neoplasm of head of pancreas (HCC) Expected: 11/21/2023 (Approximate), Expires: 11/29/2024 [facility] Comment on above: Expected: 11/21/2023 (Approximate), Expires: 11/29/2024 Start: 11-21-2023 End: 11-29-2024 CT Chest W contrast IV CT CHEST W IVCON Radiology Routine Malignant neoplasm of head of pancreas (HCC) Expected: 11/21/2023 (Approximate), Expires: 11/29/2024 [facility] Work Phone: Comment on above: Expected: 11/21/2023 (Approximate), Expires: 11/29/2024 Start: 11-20-2023 End: 11-20-2023 Follow-up encounter Hematology/Oncology Comment on above: 3 week follow up and chemotx Julia // pump connect Start: 11-19-2023 Influenza vaccination Influenza Vacc ine (#1) [facility] Comment on above: Postponed from 01/20 (Patient Refused) Start: 11-17-2023 End: 11-17-2023 Patient encounter procedure 11/17/2023 10:15 AM EDT Appointment Radiology Pet [facility] [address] [place] [address] CT CAP with contrast Radiology Pet CT [...] 11-04-2023 Influenza vaccination LUNG CANCER SC REENING [facility] Start: 11-04-2023 Screening for malign ant neoplasm of lung Lung Cancer Screening [facility] Start: 11-03-2023 End: 11-03-2023 ambulatory 11/03/2023 11:00 AM EDT Infusion Center Hematology/Oncology [address] [place] [address] pump disconnect Hematology/Oncology Comment on above: pump disconnect Start: 11-02-2023 End: 11-02-2023 ambulatory 11/02/2023 12:30 PM EDT Infusion Center Hematology/Oncology [address] [place], [place] [id number] [phone] 12:30pm pump disconnect Hematology/Oncology Comment on above: 12:30pm pump disconn ect Start: 11-01-2023 End: 11-01-2023 Follow-up encounter Hematology/Oncology Comment on above: 3 week follow up and chemotx Julia // pump connecct Start: 10-27-2023 Hemoglobin A1c measurement HbA1C [facility] Start: 10-27-2023 Medicare Annual Well ness (AWV) Medicare Annual Wellness (AWV) [facility] Start: 10-27-2023 End: 10-27-2023 ambulatory 10/27/2023 10:30 AM [facility] Infusion Center Hematology/Oncology [address] [place] [address] pump disconnect Hematology/Oncology Comment on above: pump disconnect Start: 10-25-2023 End: 10-25-2023 Follow-up encounter Hematology/Oncology Comment on above: 3 week follow up and chemotx Julia // pump connecct Start: 10-13-2023 End: 10-13-2023 ambulatory 10/13/2023 11:30 AM T Infusion Center Hematology/Oncology [facility] [place] [address] pump disconnect Hematology/Oncology Comment on above: pump disconnect Start: 10-12-2023 End: 10-12-2023 ambulatory 10/12/2023 11:30 AM [facility] Infusion Center Hematology/Oncology [address] [place], [place] [address] [address] pump disconnect Hematology/Oncology Comment on above: pump disconnect Start: 10-11-2023 End: 01-10-2024 Cancer Ag 19-9 [Units/volume] in Serum or Plasma CA 19-9 Lab Routine Malignant neoplasm of head of pancreas (HCC) Expected: 10/11/2023, Expires: 01/10/2024 [facility] Comment on above: Expected: 10/11/2023 , Expires: 01/10/2024 Start: 10-11-2023 End: 01-10-2024 CBC W Auto Differential panel - Blood COMPLETE BLOOD COUNT AND DIFFERENTIAL Lab Routine Malignant neoplasm of head of pancreas (HCC) Expected: 10/11/2023, Expires: 01/10/2024 [facility] Comment on above: Expected: 10/11/2023 , Expires: 01/10/2024 Start: 10-11-2023 End: 01-10-2024 Comprehensive metabolic 2000 panel - Serum or Plasma COMPREHENSIVE METABOLIC PANEL Lab Routine Malignant neoplasm of head of pancreas (HCC) Expected: 10/11/2023, Expires: 01/10/2024 [facility] Work Phone: Comment on above: Expected: 10/11/2023 , Expires: 01/10/2024 Start: 10-11-2023 End: 10-11-2023 Follow-up encounter Hematology/Oncology Comment on above: 3 week follow up and chemotx Julia // pump connecct Start: 10-11-2023 End: 10-11-2023 ambulatory 10/11/2023 9:00 AM [facility] Infusion Center Hematology/Oncology [address] [place] [address] [place] [address] 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 Hematology/Oncology Comment on above: 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 Start: 10-10-2023 End: 10-10-2023 Follow-up encounter Hematology/Oncology Comment on above: 3 week follow up and chemotx Julia // pump connecct Start: 10-05-2023 End: 10-05-2023 ambulatory 10/05/2023 10:30 AM [facility] Infusion Center Hematology/Oncology [address] [place] [address] [place] [address] pump disconnect Hematology/Oncology Comment on above: pump disconnect Start: 10-03-2023 End: 01-02-2024 CBC W Auto Differential panel - Blood COMPLETE BLOOD COUNT AND DIFFERENTIAL Lab Routine Leg swelling Malignant neoplasm of head of pancreas (HCC) Neuropathy Acute cough Expected: 10/03/2023, Expires: 01/02/2024 [facility] Comment on above: Expected: 10/03/2023 , Expires: 01/02/2024 Start: 10-03-2023 End: 01-02-2024 Comprehensive metabolic 2000 panel - Serum or Plasma COMPREHENSIVE METABOLIC PANEL Lab Routine Leg swelling Malignant neoplasm of head of pancreas (HCC) Neuropathy Acute cough Expected: 10/03/2023, Expires: 01/02/2024 [facility] Work Phone: Comment on above: Expected: 10/03/2023 , Expires: 01/02/2024 Start: 10-03-2023 End: 10-03-2023 Follow-up encounter Hematology/Oncology Comment on above: 3 week follow up and chemotx Julia // pump connecct Start: 09-25-2023 End: 12-25-2023 Cancer Ag 19-9 [Units/volume] in Serum or Plasma CA 19-9 Lab Routine Malignant neoplasm of head of pancreas (HCC) Neuropathy Expected: 09/25/2023, Expires: 12/25/2023 [facility] Comment on above: Expected: 09/25/2023 , Expires: 12/25/2023 Start: 09-25-2023 End: 12-25-2023 CBC W Auto Differential panel - Blood COMPLETE BLOOD COUNT AND DIFFERENTIAL Lab Routine Malignant neoplasm of head of pancreas (HCC) Neuropathy Expected: 09/25/2023, Expires: 12/25/2023 [facility] Comment on above: Expected: 09/25/2023 , Expires: 12/25/2023 Start: 09-25-2023 End: 12-25-2023 Comprehensive metabolic 2000 panel - Serum or Plasma COMPREHENSIVE METABOLIC PANEL Lab Routine Malignant neoplasm of head of pancreas (HCC) Neuropathy Expected: 09/25/2023, Expires: 12/25/2023 [facility] Work Phone: Comment on above: Expected: 09/25/2023 , Expires: 12/25/2023 Start: 09-15-2023 End: 09-15-2023 ambulatory 09/15/2023 11:00 AM T Infusion Center Hematology/Oncology [address] [place] [address] [place] [address] pump disconnect Hematology/Oncology Comment on above: pump disconnect Start: 09-13-2023 End: 12-13-2023 Cancer Ag 19-9 [Units/volume] in Serum or Plasma [facility] Work Phone: Comment on above: Expected: 09/13/2023 (Approximate), Expires: 12/13/2023 Start: 09-13-2023 End: 12-13-2023 CBC W Auto Differential panel - Blood CBC + DIFF Lab Routine Malignant neoplasm of head of pancreas (HCC) Expected: 09/13/2023 (Approximate), Expires: 12/13/2023 [facility] Work Phone: Comment on above: Expected: 09/13/2023 (Approximate), Expires: 12/13/2023 Start: 09-13-2023 End: 12-13-2023 Cobalamin (Vitamin B12) [Mass/volume] in Serum or Plasma VITAMIN B12 BLOOD Lab Routine Malignant neoplasm of head of pancreas (HCC) Expected: 09/13/2023 (Approximate), Expires: 12/13/2023 [facility] Work Phone: Comment on above: Expected: 09/13/2023 (Approximate), Expires: 12/13/2023 Start: 09-13-2023 End: 12-13-2023 Comprehensive metabolic 2000 panel - Serum or Plasma COMP METABOLIC PANEL Lab Routine Malignant neoplasm of head of pancreas (HCC) Expected: 09/13/2023 (Approximate), Expires: 12/13/2023 [facility] Work Phone: Comment on above: Expected: 09/13/2023 (Approximate), Expires: 12/13/2023 Start: 09-13-2023 End: 08-22-2024 Ferritin [Mass/volume] in Serum or Plasma FERRITIN BLD Lab Routine Malignant neoplasm of head of pancreas (HCC) Expected: 09/13/2023 (Approximate), Expires: 08/22/2024 [facility] Work Phone: Comment on above: Expected: 09/13/2023 (Approximate), Expires: 08/22/2024 Start: 09-13-2023 End: 08-22-2024 Iron and Iron binding capacity panel - Serum or Plasma IRON + TIBC Lab Routine Malignant neoplasm of head of pancreas (HCC) Expected: 09/13/2023 (Approximate), Expires: 08/22/2024 [facility] Work Phone: Comment on above: Expected: 09/13/2023 (Approximate), Expires: 08/22/2024 Start: 08-16-2023 End: 11-15-2023 Cancer Ag 19-9 [Units/volume] in Serum or Plasma CA 19-9 BLD Lab Routine Malignant neoplasm of head of pancreas (HCC) Expected: 08/16/2023 (Approximate), Expires: 11/15/2023 [facility] Work Phone: Comment on above: Expected: 08/16/2023 (Approximate), Expires: 11/15/2023 Start: 08-16-2023 End: 11-15-2023 CBC W Auto Differential panel - Blood CBC + DIFF Lab Routine Malignant neoplasm of head of pancreas (HCC) Expected: 08/16/2023 (Approximate), Expires: 11/15/2023 [facility] Work Phone: Comment on above: Expected: 08/16/2023 (Approximate), Expires: 11/15/2023 Start: 08-16-2023 End: 11-15-2023 Comprehensive metabolic 2000 panel - Serum or Plasma COMP METABOLIC PANEL Lab Routine Malignant neoplasm of head of pancreas (HCC) Expected: 08/16/2023 (Approximate), Expires: 11/15/2023 [facility] Work Phone: Comment on above: Expected: 08/16/2023 (Approximate), Expires: 11/15/2023 Start: 08-16-2023 End: 08-31-2024 CT Abdomen and Pelvis W contrast IV CT ABD/PEL W IVCON Radiology Routine Malignant neoplasm of head of pancreas (HCC) Expected: 08/16/2023 (Approximate), Expires: 08/31/2024 [facility] Work Phone: Comment on above: Expected: 08/16/2023 (Approximate), Expires: 08/31/2024 Start: 08-16-2023 End: 08-31-2024 CT Chest W contrast IV CT CHEST W IVCON Radiology Routine Malignant neoplasm of head of pancreas (HCC) Expected: 08/16/2023 (Approximate), Expires: 08/31/2024 [facility] Work Phone: Comment on above: Expected: 08/16/2023 (Approximate), Expires: 08/31/2024 Start: 07-28-2023 Influenza vaccination LUNG CANCER [facility] Start: 07-27-2023 Hemoglobin A1c measurement Diabetes: Hemoglobin A1C [facility] Start: 07-26-2023 End: 10-25-2023 Cancer Ag 19-9 [Units/volume] in Serum or Plasma CA 19-9 BLD Lab Routine Malignant neoplasm of head of pancreas (HCC) Type 2 diabetes mellitus without complication, with long-term current use of insulin (HCC) Neuropathy Severe protein-calorie malnutrition (HCC) Expected: 07/26/2023, Expires: 10/25/2023 [facility] Work Phone: Comment on above: Expected: 07/26/2023 , Expires: 10/25/2023 Start: 07-26-2023 End: 10-25-2023 CBC W Auto Differential panel - Blood CBC + DIFF Lab Routine Malignant neoplasm of head of pancreas (HCC) Type 2 diabetes mellitus without complication, with long-term current use of insulin (HCC) Neuropathy Severe protein-calorie malnutrition (HCC) Expected: 07/26/2023, Expires: 10/25/2023 [facility] Work Phone: Comment on above: Expected: 07/26/2023 , Expires: 10/25/2023 Start: 07-26-2023 End: 10-25-2023 Comprehensive metabolic 2000 panel - Serum or Plasma COMP METABOLIC PANEL Lab Routine Malignant neoplasm of head of pancreas (HCC) Type 2 diabetes mellitus without complication, with long-term current use of insulin (HCC) Neuropathy Severe protein-calorie malnutrition (HCC) Expected: 07/26/2023, Expires: 10/25/2023 [facility] Work Phone: Comment on above: Expected: 07/26/2023 , Expires: 10/25/2023 Start: 07-13-2023 End: 10-12-2023 CBC W Auto Differential panel - Blood CBC + DIFF Lab Routine Malignant neoplasm of head of pancreas (HCC) Expected: 07/13/2023, Expires: 10/12/2023 [facility] Work Phone: Comment on above: Expected: 07/13/2023 , Expires: 10/12/2023 Start: 07-13-2023 End: 10-12-2023 Comprehensive metabolic 2000 panel - Serum or Plasma COMP METABOLIC PANEL Lab Routine Malignant neoplasm of head of pancreas (HCC) Expected: 07/13/2023, Expires: 10/12/2023 [facility] Work Phone: Comment on above: Expected: 07/13/2023 , Expires: 10/12/2023 Start: 05-26-2023 End: 08-25-2023 Cancer Ag 19-9 [Units/volume] in Serum or Plasma CA 19-9 BLD Lab Routine Malignant neoplasm of head of pancreas (HCC) Expected: 05/26/2023 (Approximate), Expires: 08/25/2023 [facility] Work Phone: Comment on above: Expected: 05/26/2023 (Approximate), Expires: 08/25/2023 Start: 05-26-2023 End: 08-25-2023 CBC W Auto Differential panel - Blood CBC + DIFF Lab Routine Malignant neoplasm of head of pancreas (HCC) Expected: 05/26/2023 (Approximate), Expires: 08/25/2023 [facility] Work Phone: Comment on above: Expected: 05/26/2023 (Approximate), Expires: 08/25/2023 Start: 05-26-2023 End: 08-25-2023 Comprehensive metabolic 2000 panel - Serum or Plasma COMP METABOLIC PANEL Lab Routine Malignant neoplasm of head of pancreas (HCC) Expected: 05/26/2023 (Approximate), Expires: 08/25/2023 [facility] Work Phone: Comment on above: Expected: 05/26/2023 (Approximate), Expires: 08/25/2023 Start: 05-26-2023 End: 06-03-2024 Ct abdomen & pelvis w/contrast material CT ABD/PEL W IVCON Radiology Routine Malignant neoplasm of head of pancreas (HCC) Expected: 05/26/2023 (Approximate), Expires: 06/03/2024 [facility] Work Phone: Comment on above: Expected: 05/26/2023 (Approximate), Expires: 06/03/2024 Start: 05-26-2023 End: 06-03-2024 CT CHEST W IVCON CT CHEST W IVCON Radiology Routine Malignant neoplasm of head of pancreas (HCC) Expected: 05/26/2023 (Approximate), Expires: 06/03/2024 [facility] Work Phone: Comment on above: Expected: 05/26/2023 (Approximate), Expires: 06/03/2024 Start: 05-25-2023 Influenza vaccination LUNG CANCER SC REENING [facility] Start: 05-22-2023 Advance Directive Discussion Advance Directive Discussion [facility] Start: 05-22-2023 Behavioral Health Screening Behavioral Health Screening [facility] Start: 05-22-2023 Depression Assessment Depression Ass essment [facility] Start: 05-12-2023 End: 08-11-2023 CBC W Auto Differential panel - Blood CBC + DIFF Lab Routine Malignant neoplasm of head of pancreas (HCC) Expected: 05/12/2023, Expires: 08/11/2023 [facility] Work Phone: Comment on above: Expected: 05/12/2023 , Expires: 08/11/2023 Start: 04-26-2023 End: 07-26-2023 Cancer Ag 19-9 [Units/volume] in Serum or Plasma CA 19-9 BLD Lab Routine Type 2 diabetes mellitus without complication, with long-term current use of insulin (HCC) Severe protein-calorie malnutrition (HCC) Malignant neoplasm of head of pancreas (HCC) Anemia, unspecified type Expected: 04/26/2023 (Approximate), Expires: 07/26/2023 [facility] Work Phone: Comment on above: Expected: 04/26/2023 (Approximate), Expires: 07/26/2023 Start: 04-26-2023 End: 07-26-2023 CBC W Auto Differential panel - Blood CBC + DIFF Lab Routine Type 2 diabetes mellitus without complication, with long-term current use of insulin (HCC) Severe protein-calorie malnutrition (HCC) Malignant neoplasm of head of pancreas (HCC) Anemia, unspecified type Expected: 04/26/2023 (Approximate), Expires: 07/26/2023 [facility] Work Phone: Comment on above: Expected: 04/26/2023 (Approximate), Expires: 07/26/2023 Start: 04-26-2023 End: 07-26-2023 Comprehensive metabolic 2000 panel - Serum or Plasma COMP METABOLIC PANEL Lab Routine Type 2 diabetes mellitus without complication, with long-term current use of insulin (HCC) Severe protein-calorie malnutrition (HCC) Malignant neoplasm of head of pancreas (HCC) Anemia, unspecified type Expected: 04/26/2023 (Approximate), Expires: 07/26/2023 [facility] Work Phone: Comment on above: Expected: 04/26/2023 (Approximate), Expires: 07/26/2023 Start: 03-30-2023 End: 06-29-2023 Cancer Ag 19-9 [Units/volume] in Serum or Plasma CA 19-9 BLD Lab Routine 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) Expected: 03/30/2023 (Approximate), Expires: 06/29/2023 [facility] Work Phone: Comment on above: Expected: 03/30/2023 (Approximate), Expires: 06/29/2023 Start: 03-30-2023 End: 06-29-2023 CBC W Auto Differential panel - Blood [facility] Work Phone: Comment on above: Expected: 03/30/2023 (Approximate), Expires: 06/29/2023 Expected: 03/30/2023 , Expires: 06/29/2023 Start: 03-30-2023 End: 06-29-2023 Comprehensive metabolic 2000 panel - Serum or Plasma [facility] Work Phone: Comment on above: Expected: 03/30/2023 (Approximate), Expires: 06/29/2023 Expected: 03/30/2023 , Expires: 06/29/2023 Start: 03-07-2023 Influenza vaccination LUNG CANCER [facility] Start: 03-02-2023 End: 05-02-2023 Cancer Ag 19-9 [Units/volume] in Serum or Plasma CA 19-9 BLD Lab Routine 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) Type 2 diabetes mellitus without complication, with long-term current use of insulin (HCC) LINDSEY (dyspnea on exertion) Expected: 03/02/2023, Expires: 05/02/2023 [facility] Work Phone: Comment on above: Expected: 03/02/2023 , Expires: 05/02/2023 Start: 03-02-2023 End: 05-02-2023 CBC W Auto Differential panel - Blood CBC + DIFF Lab Routine 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) Type 2 diabetes mellitus without complication, with long-term current use of insulin (HCC) LINDSEY (dyspnea on exertion) Expected: 03/02/2023, Expires: 05/02/2023 [facility] Work Phone: Comment on above: Expected: 03/02/2023 , Expires: 05/02/2023 Start: 03-02-2023 End: 05-02-2023 Comprehensive metabolic 2000 panel - Serum or Plasma COMP METABOLIC PANEL Lab Routine 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) Type 2 diabetes mellitus without complication, with long-term current use of insulin (HCC) LINDSEY (dyspnea on exertion) Expected: 03/02/2023, Expires: 05/02/2023 [facility] Work Phone: Comment on above: Expected: 03/02/2023 , Expires: 05/02/2023 Start: 03-01-2023 End: 05-01-2023 Cancer Ag 19-9 [Units/volume] in Serum or Plasma [facility] Work Phone: Comment on above: Expected: 03/01/2023 (Approximate), Expires: 05/01/2023 Start: 03-01-2023 End: 05-01-2023 CBC W Auto Differential panel - Blood CBC + DIFF Lab Routine 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) Expected: 03/01/2023 (Approximate), Expires: 05/01/2023 [facility] Work Phone: Comment on above: Expected: 03/01/2023 (Approximate), Expires: 05/01/2023 Start: 03-01-2023 End: 05-01-2023 Comprehensive metabolic 2000 panel - Serum or Plasma [facility] Work Phone: Comment on above: Expected: 03/01/2023 (Approximate), Expires: 05/01/2023 Start: 02-08-2023 End: 04-10-2023 CBC W Auto Differential panel - Blood CBC + DIFF Lab Routine 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) Expected: 02/08/2023 (Approximate), Expires: 04/10/2023 [facility] Work Phone: Comment on above: Expected: 02/08/2023 (Approximate), Expires: 04/10/2023 Start: 02-08-2023 End: 04-10-2023 Comprehensive metabolic 2000 panel - Serum or Plasma COMP METABOLIC PANEL Lab Routine 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) Expected: 02/08/2023 (Approximate), Expires: 04/10/2023 [facility] Work Phone: Comment on above: Expected: 02/08/2023 (Approximate), Expires: 04/10/2023 Start: 02-04-2023 End: 04-06-2023 Cancer Ag 19-9 [Units/volume] in Serum or Plasma CA 19-9 BLD Lab Routine 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) Expected: 02/04/2023 (Approximate), Expires: 04/06/2023 [facility] Work Phone: Comment on above: Expected: 02/04/2023 (Approximate), Expires: 04/06/2023 Start: 02-04-2023 End: 04-06-2023 CBC W Auto Differential panel - Blood CBC + DIFF Lab Routine 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) Expected: 02/04/2023 (Approximate), Expires: 04/06/2023 [facility] Work Phone: Comment on above: Expected: 02/04/2023 (Approximate), Expires: 04/06/2023 Start: 02-04-2023 End: 04-06-2023 Comprehensive metabolic 2000 panel - Serum or Plasma COMP METABOLIC PANEL Lab Routine 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) Expected: 02/04/2023 (Approximate), Expires: 04/06/2023 [facility] Work Phone: Comment on above: Expected: 02/04/2023 (Approximate), Expires: 04/06/2023 Start: 01-20-[address] [facility] Start: 12-14-2022 End: 02-13-2023 Cancer Ag 19-9 [Units/volume] in Serum or Plasma [facility] Work Phone: Comment on above: Expected: 12/14/2022 (Approximate), Expires: 02/13/2023 Start: 12-14-2022 End: 02-13-2023 CBC W Auto Differential panel - Blood CBC + DIFF Lab Routine Malignant neoplasm of head of pancreas (HCC) Expected: 12/14/2022 (Approximate), Expires: 02/13/2023 [facility] Work Phone: Comment on above: Expected: 12/14/2022 (Approximate), Expires: 02/13/2023 Start: 12-14-2022 End: 02-13-2023 Comprehensive metabolic 2000 panel - Serum or Plasma COMP METABOLIC PANEL Lab Routine Malignant neoplasm of head of pancreas (HCC) Expected: 12/14/2022 (Approximate), Expires: 02/13/2023 [facility] Work Phone: Comment on above: Expected: 12/14/2022 (Approximate), Expires: 02/13/2023 Start: 12-07-2022 End: 02-06-2023 CBC W Auto Differential panel - Blood CBC + DIFF Lab Routine Malignant neoplasm of head of pancreas (HCC) Expected: 12/07/2022, Expires: 02/06/2023 [facility] Work Phone: Comment on above: Expected: 12/07/2022 , Expires: 02/06/2023 Start: 12-05-2022 End: 02-04-2023 Cancer Ag 19-9 [Units/volume] in Serum or Plasma CA 19-9 BLD Lab Routine Malignant neoplasm of head of pancreas (HCC) Anemia, unspecified type Type 2 diabetes mellitus without complication, with long-term current use of insulin (HCC) Expected: 12/05/2022, Expires: 02/04/2023 [facility] Work Phone: Comment on above: Expected: 12/05/2022 , Expires: 02/04/2023 Start: 12-05-2022 End: 02-04-2023 CBC W Auto Differential panel - Blood [facility] Work Phone: Comment on above: Expected: 12/05/2022 , Expires: 02/04/2023 Start: 12-05-2022 End: 02-04-2023 Comprehensive metabolic 2000 panel - Serum or Plasma COMP METABOLIC PANEL Lab Routine Malignant neoplasm of head of pancreas (HCC) Anemia, unspecified type Type 2 diabetes mellitus without complication, with long-term current use of insulin (HCC) Expected: 12/05/2022, Expires: 02/04/2023 [facility] Work Phone: Comment on above: Expected: 12/05/2022 , Expires: 02/04/2023 Start: 11-23-2022 End: 01-23-2023 CBC W Auto Differential panel - Blood CBC + DIFF Lab Routine Malignant neoplasm of head of pancreas (HCC) Expected: 11/23/2022, Expires: 01/23/2023 [facility] Work Phone: Comment on above: Expected: 11/23/2022 , Expires: 01/23/2023 Start: 11-23-2022 End: 01-23-2023 Comprehensive metabolic 2000 panel - Serum or Plasma COMP METABOLIC PANEL Lab Routine Malignant neoplasm of head of pancreas (HCC) Expected: 11/23/2022, Expires: 01/23/2023 [facility] Work Phone: Comment on above: Expected: 11/23/2022 , Expires: 01/23/2023 Start: 11-10-2022 End: 01-10-2023 Cancer Ag 19-9 [Units/volume] in Serum or Plasma [facility] Work Phone: Comment on above: Expected: 11/10/2022 (Approximate), Expires: 01/10/2023 Start: 11-10-2022 End: 01-10-2023 CBC W Auto Differential panel - Blood CBC + DIFF Lab Routine Malignant neoplasm of head of pancreas (HCC) Expected: 11/10/2022 (Approximate), Expires: 01/10/2023 [facility] Work Phone: Comment on above: Expected: 11/10/2022 (Approximate), Expires: 01/10/2023 Start: 11-10-2022 End: 01-10-2023 Comprehensive metabolic 2000 panel - Serum or Plasma COMP METABOLIC PANEL Lab Routine Malignant neoplasm of head of pancreas (HCC) Expected: 11/10/2022 (Approximate), Expires: 01/10/2023 [facility] Work Phone: Comment on above: Expected: 11/10/2022 (Approximate), Expires: 01/10/2023 Start: 11-10-2022 End: 10-29-2023 Ct abdomen & pelvis w/contrast material CT ABD/PEL W IVCON Radiology Routine Malignant neoplasm of head of pancreas (HCC) Expected: 11/10/2022 (Approximate), Expires: 10/29/2023 [facility] Work Phone: Comment on above: Expected: 11/10/2022 (Approximate), Expires: 10/29/2023 Start: 11-10-2022 End: 10-29-2023 CT CHEST W IVCON CT CHEST W IVCON Radiology Routine Malignant neoplasm of head of pancreas (HCC) Expected: 11/10/2022 (Approximate), Expires: 10/29/2023 [facility] Work Phone: Comment on above: Expected: 11/10/2022 (Approximate), Expires: 10/29/2023 Start: 09-13-2022 End: 11-13-2022 Cancer Ag 19-9 [Units/volume] in Serum or Plasma CA 19-9 BLD Lab Routine Malignant neoplasm of head of pancreas (HCC) Expected: 09/13/2022 (Approximate), Expires: 11/13/2022 [facility] Work Phone: Comment on above: Expected: 09/13/2022 (Approximate), Expires: 11/13/2022 Start: 09-13-2022 End: 11-13-2022 CBC W Auto Differential panel - Blood CBC + DIFF Lab Routine Malignant neoplasm of head of pancreas (HCC) Expected: 09/13/2022 (Approximate), Expires: 11/13/2022 [facility] Work Phone: Comment on above: Expected: 09/13/2022 (Approximate), Expires: 11/13/2022 Start: 09-13-2022 End: 11-13-2022 Comprehensive metabolic 2000 panel - Serum or Plasma COMP METABOLIC PANEL Lab Routine Malignant neoplasm of head of pancreas (HCC) Expected: 09/13/2022 (Approximate), Expires: 11/13/2022 [facility] Work Phone: Comment on above: Expected: 09/13/2022 (Approximate), Expires: 11/13/2022 Start: 08-03-2022 End: 10-03-2022 Cancer Ag 19-9 [Units/volume] in Serum or Plasma CA 19-9 BLD Lab Routine Malignant neoplasm of head of pancreas (HCC) Expected: 08/03/2022 (Approximate), Expires: 10/03/2022 [facility] Work Phone: Comment on above: Expected: 08/03/2022 (Approximate), Expires: 10/03/2022 Start: 08-03-2022 End: 10-03-2022 CBC W Auto Differential panel - Blood CBC + DIFF Lab Routine Malignant neoplasm of head of pancreas (HCC) Expected: 08/03/2022 (Approximate), Expires: 10/03/2022 [facility] Work Phone: Comment on above: Expected: 08/03/2022 (Approximate), Expires: 10/03/2022 Start: 08-03-2022 End: 10-03-2022 Comprehensive metabolic 2000 panel - Serum or Plasma COMP METABOLIC PANEL Lab Routine Malignant neoplasm of head of pancreas (HCC) Expected: 08/03/2022 (Approximate), Expires: 10/03/2022 [facility] Work Phone: Comment on above: Expected: 08/03/2022 (Approximate), Expires: 10/03/2022 Start: 08-03-2022 End: 07-29-2023 Ct abdomen & pelvis w/contrast material CT ABD/PEL W IVCON Radiology Routine Malignant neoplasm of head of pancreas (HCC) Expected: 08/03/2022, Expires: 07/29/2023 [facility] Work Phone: Comment on above: Expected: 08/03/2022 , Expires: 07/29/2023 Start: 08-03-2022 End: 07-29-2023 CT CHEST W IVCON CT CHEST W IVCON Radiology Routine Malignant neoplasm of head of pancreas (HCC) Expected: 08/03/2022, Expires: 07/29/2023 [facility] Work Phone: Comment on above: Expected: 08/03/2022 , Expires: 07/29/2023 Start: 06-01-2022 End: 08-01-2022 Cancer Ag 19-9 [Units/volume] in Serum or Plasma [facility] Work Phone: Comment on above: Expected: 06/01/2022 (Approximate), Expires: 08/01/2022 Start: 06-01-2022 End: 08-01-2022 CBC W Auto Differential panel - Blood CBC + DIFF Lab Routine Malignant neoplasm of head of pancreas (HCC) Expected: 06/01/2022 (Approximate), Expires: 08/01/2022 [facility] Work Phone: Comment on above: Expected: 06/01/2022 (Approximate), Expires: 08/01/2022 Start: 06-01-2022 End: 08-01-2022 Comprehensive metabolic 2000 panel - Serum or Plasma COMP METABOLIC PANEL Lab Routine Malignant neoplasm of head of pancreas (HCC) Expected: 06/01/2022 (Approximate), Expires: 08/01/2022 [facility] Work Phone: Comment on above: Expected: 06/01/2022 (Approximate), Expires: 08/01/2022 Start: 06-01-2022 End: 06-10-2023 Ct abdomen & pelvis w/contrast material CT ABD/PEL W IVCON Radiology Routine Malignant neoplasm of head of pancreas (HCC) Expected: 06/01/2022, Expires: 06/10/2023 [facility] Work Phone: Comment on above: Expected: 06/01/2022 , Expires: 06/10/2023 Start: 06-01-2022 End: 06-10-2023 CT CHEST W IVCON CT CHEST W IVCON Radiology Routine Malignant neoplasm of head of pancreas (HCC) Expected: 06/01/2022, Expires: 06/10/2023 [facility] Work Phone: Comment on above: Expected: 06/01/2022 , Expires: 06/10/2023 Start: 05-22-2022 ADVANCE DIRECTIVE DISCUSSION ADVANCE DIRECTIVE DISCUSSION [facility] Start: 05-22-2022 DEPRESSION ASSESSMENT DEPRESSION ASS ESSMENT [facility] Start: 05-13-2022 End: 07-13-2022 Cancer Ag 19-9 [Units/volume] in Serum or Plasma CA 19-9 BLD Lab Routine Malignant neoplasm of head of pancreas (HCC) Anemia, unspecified type Expected: 05/13/2022, Expires: 07/13/2022 [facility] Work Phone: Comment on above: Expected: 05/13/2022 , Expires: 07/13/2022 Start: 05-13-2022 End: 07-13-2022 CBC W Auto Differential panel - Blood CBC + DIFF Lab Routine Malignant neoplasm of head of pancreas (HCC) Anemia, unspecified type Expected: 05/13/2022, Expires: 07/13/2022 [facility] Work Phone: Comment on above: Expected: 05/13/2022 , Expires: 07/13/2022 Start: 05-13-2022 End: 07-13-2022 Comprehensive metabolic 2000 panel - Serum or Plasma COMP METABOLIC PANEL Lab Routine Malignant neoplasm of head of pancreas (HCC) Anemia, unspecified type Expected: 05/13/2022, Expires: 07/13/2022 [facility] Work Phone: Comment on above: Expected: 05/13/2022 , Expires: 07/13/2022 Start: 05-11-2022 End: 07-11-2022 CREATININE BLD CREATININE BLD Lab Routine Malignant neoplasm of head of pancreas (HCC) Expected: 05/11/2022, Expires: 07/11/2022 [facility] Work Phone: Comment on above: Expected: 05/11/2022 , Expires: 07/11/2022 Start: 04-06-2022 End: 06-06-2022 Cancer Ag 19-9 [Units/volume] in Serum or Plasma CA 19-9 BLD Lab Routine Malignant neoplasm of head of pancreas (HCC) Expected: 04/06/2022, Expires: 06/06/2022 [facility] Work Phone: Comment on above: Expected: 04/06/2022 , Expires: 06/06/2022 Start: 04-06-2022 End: 06-06-2022 CBC W Auto Differential panel - Blood [facility] Work Phone: Comment on above: Expected: 04/06/2022 , Expires: 06/06/2022 Start: 04-06-2022 End: 06-06-2022 Comprehensive metabolic 2000 panel - Serum or Plasma COMP METABOLIC PANEL Lab Routine Malignant neoplasm of head of pancreas (HCC) Expected: 04/06/2022, Expires: 06/06/2022 [facility] Work Phone: Comment on above: Expected: 04/06/2022 , Expires: 06/06/2022 Start: 03-30-2022 End: 05-30-2022 Cancer Ag 19-9 [Units/volume] in Serum or Plasma [facility] Work Phone: Comment on above: Expected: 03/30/2022 , Expires: 05/30/2022 Start: 03-30-2022 End: 05-30-2022 CBC W Auto Differential panel - Blood CBC + DIFF Lab Routine Malignant neoplasm of head of pancreas (HCC) Expected: 03/30/2022, Expires: 05/30/2022 [facility] Work Phone: Comment on above: Expected: 03/30/2022 , Expires: 05/30/2022 Start: 03-30-2022 End: 05-30-2022 Cobalamin (Vitamin B12) [Mass/volume] in Serum or Plasma [facility] Work Phone: Comment on above: Expected: 03/30/2022 , Expires: 05/30/2022 Start: 03-30-2022 End: 05-30-2022 Comprehensive metabolic 2000 panel - Serum or Plasma COMP METABOLIC PANEL Lab Routine Malignant neoplasm of head of pancreas (HCC) Expected: 03/30/2022, Expires: 05/30/2022 [facility] Work Phone: Comment on above: Expected: 03/30/2022 , Expires: 05/30/2022 Start: 03-23-2022 End: 05-23-2022 CBC W Auto Differential panel - Blood CBC + DIFF Lab Routine Malignant neoplasm of head of pancreas (HCC) Expected: 03/23/2022 (Approximate), Expires: 05/23/2022 [facility] Work Phone: Comment on above: Expected: 03/23/2022 (Approximate), Expires: 05/23/2022 Start: 03-23-2022 End: 05-23-2022 Comprehensive metabolic 2000 panel - Serum or Plasma COMP METABOLIC PANEL Lab Routine Malignant neoplasm of head of pancreas (HCC) Expected: 03/23/2022 (Approximate), Expires: 05/23/2022 [facility] Work Phone: Comment on above: Expected: 03/23/2022 (Approximate), Expires: 05/23/2022 Start: 03-16-2022 End: 05-16-2022 CBC W Auto Differential panel - Blood CBC + DIFF Lab Routine Malignant neoplasm of head of pancreas (HCC) Expected: 03/16/2022 (Approximate), Expires: 05/16/2022 [facility] Work Phone: Comment on above: Expected: 03/16/2022 (Approximate), Expires: 05/16/2022 Start: 03-16-2022 End: 05-16-2022 Comprehensive metabolic 2000 panel - Serum or Plasma COMP METABOLIC PANEL Lab Routine Malignant neoplasm of head of pancreas (HCC) Expected: 03/16/2022 (Approximate), Expires: 05/16/2022 [facility] Work Phone: Comment on above: Expected: 03/16/2022 (Approximate), Expires: 05/16/2022 Start: 03-16-2022 End: 05-16-2022 Ferritin [Mass/volume] in Serum or Plasma [facility] Work Phone: Comment on above: Expected: 03/16/2022 , Expires: 05/16/2022 Start: 03-16-2022 End: 05-16-2022 Folate [Mass/volume] in Serum or Plasma [facility] Work Phone: Comment on above: Expected: 03/16/2022 , Expires: 05/16/2022 Start: 03-16-2022 End: 05-16-2022 Iron and Iron binding capacity panel - Serum or Plasma [facility] Work Phone: Comment on above: Expected: 03/16/2022 , Expires: 05/16/2022 Start: 03-16-2022 End: 05-16-2022 MISC SEND OUT TST 1 [facility] Work Phone: Comment on above: Expected: 03/16/2022 , Expires: 05/16/2022 Start: 03-08-2022 End: 05-08-2022 Cancer Ag 19-9 [Units/volume] in Serum or Plasma CA 19-9 BLD Lab Routine Malignant neoplasm of head of pancreas (HCC) Expected: 03/08/2022 (Approximate), Expires: 05/08/2022 [facility] Work Phone: Comment on above: Expected: 03/08/2022 (Approximate), Expires: 05/08/2022 Start: 03-08-2022 End: 05-08-2022 CBC W Auto Differential panel - Blood CBC + DIFF Lab Routine Malignant neoplasm of head of pancreas (HCC) Expected: 03/08/2022 (Approximate), Expires: 05/08/2022 [facility] Work Phone: Comment on above: Expected: 03/08/2022 (Approximate), Expires: 05/08/2022 Start: 03-08-2022 End: 05-08-2022 Comprehensive metabolic 2000 panel - Serum or Plasma COMP METABOLIC PANEL Lab Routine Malignant neoplasm of head of pancreas (HCC) Expected: 03/08/2022 (Approximate), Expires: 05/08/2022 [facility] Work Phone: Comment on above: Expected: 03/08/2022 (Approximate), Expires: 05/08/2022 Start: 03-08-2022 End: 05-08-2022 MISC SEND OUT TST 1 MISC SEND OUT TST 1 Lab Routine Malignant neoplasm of head of pancreas (HCC) Expected: 03/08/2022 (Approximate), Expires: 05/08/2022 [facility] Work Phone: Comment on above: Expected: 03/08/2022 (Approximate), Expires: 05/08/2022 Start: 03-01-2022 End: 03-24-2023 CT CHEST W IVCON CT CHEST W IVCON Radiology Routine Malignant neoplasm of head of pancreas (HCC) Expected: 03/01/2022, Expires: 03/24/2023 [facility] Work Phone: Comment on above: Expected: 03/01/2022 , Expires: 03/24/2023 Start: 02-23-2022 End: 04-25-2022 PT panel - Platelet poor plasma by Coagulation assay PROTHROMBIN TIME/PT Lab Routine Malignant neoplasm of pancreas, unspecified location of malignancy (HCC) Expected: 02/23/2022, Expires: 04/25/2022 [facility] Work Phone: Comment on above: Expected: 02/23/2022 , Expires: 04/25/2022 Start: 01-20-[address] [facility] Start: 12-04-2021 Colonoscopy COLONOSCOPY [facility] Start: 12-04-2021 COLORECTAL CANCER SCREENING COLORECTAL CANCER SCREENING [facility] Start: 12-04-2021 Screening for malign ant neoplasm of colon [facility] Start: 05-22-2021 ADVANCE DIRECTIVE DISCUSSION ADVANCE DIRECTIVE DISCUSSION [facility] Start: 05-22-2021 DEPRESSION ASSESSMENT DEPRESSION ASS ESSMENT [facility] Start: 03-06-2021 Influenza vaccination LUNG CANCER SC REENING [facility] Start: 03-02-2021 Urine screening for protein Diabetes: Urine Protein Screening [facility] Start: 02-21-2021 COVID-19 VACCINE (2 - Booster for [place] series) COVID-19 VACCINE (2 - Booster for [place] series) [facility] Start: 01-24-2021 COVID-19 VACCINE (2 - [place] risk series) COVID-19 VACCINE (2 - [place] risk series) [facility] Start: 01-20-2021 Influenza vaccination INFLUENZA (#1) [facility] Start: 11-23-2020 Hepatitis B surface antibody level LDL Cholesterol [facility] Start: 03-23-2020 Annual Wellness Visi t (AWV) Annual Wellness Visit (AWV) [place], [place] Start: 03-18-2020 End: 03-18-2020 Office Visit 03/18/2020 Office Visit Oncology Dwayne Moy MD [address] [place] [address] [facility] Start: 01-21-2020 Influenza vaccination Flu vaccine (# 1) [place], [place] Start: 2016 Pneumococcal 65+ yea rs Vaccine (1 of 1 - PPSV23) Pneumococcal 65+ years Vaccine (1 of 1 - PPSV23) [place], [place] Start: 2016 PNEUMOCOCCAL: 65+ (1 - PCV) PNEUMOCOCCAL: 65+ (1 - PCV) [facility] Start: 2016 PNEUMOVAX AGE 65 AND OVER WITH 5YR LOOKBACK (#1) PNEUMOVAX AGE 65 AND OVER WITH 5YR LOOKBACK (#1) [facility] Start: 2011 RSV Vaccine (1 - 1-d ose 60+ series) RSV Vaccine (1 - 1-dose 60+ series) [facility] Start: 2011 RSV Vaccine (1 - Ris k 60-74 years 1-dose series) RSV Vaccine (1 - Risk 60-74 years 1-dose series) [facility] Start: 2001 Screening for malign ant neoplasm of colon Colon cancer screen colonoscopy [place], [place] Start: 2001 Shingles Vaccine (1 of 2) Shingles Vaccine (1 of 2) [place], [place] Start: 2001 SHINGRIX VACCINE (1 of 2) SHINGRIX VACCINE (1 of 2) [facility] Start: 1996 COLOGUARD (FIT-DNA) COLOGUARD (FIT-D NA) [facility] Start: [address] COLONOGRAPHY [facility] Start: 1996 FECAL OCCULT BLOOD FECAL OCCULT BLOO D [facility] Start: 1996 Screening for malign ant neoplasm of colon [facility] Start: 1996 SIGMOIDOSCOPY SIGMOIDOSCOPY [facility] Start: 1991 Diabetes screen Diabetes screen [place], [place] Start: 1991 Lipid panel Lipid screen [place], [place] Start: 1970 DTaP/Tdap/Td vaccine (1 - Tdap) DTaP/Tdap/Td vaccine (1 - Tdap) [place], [place] Start: 1970 SHINGRIX VACCINE (1 of 2) SHINGRIX VACCINE (1 of 2) [facility] Start: 1970 Urine microalbumin profile DTAP,TDAP,TD (1 - Tdap) [facility] Start: 1969 Annual PCP Team Tomographic Tech jace Disease Visit Annual PCP Team Chronic Disease Visit [facility] Start: 1969 Anxiety Screening Anxiety Screening [facility] Start: 1969 Depression Screening Depression Scre ening [facility] Start: 1969 HEPATITIS C SCREENING HEPATITIS C [facility] Start: 1969 Hepatitis C screening Hepatitis C [facility] Start: 1963 Adult depression screening assessment DEPRESSION SCREENING [facility] Start: 1961 Diabetic foot examination Diabetic Foot Exam [facility] Start: 1961 Glaucoma screening [facility] Start: 1961 Hepatitis B screening Urine Albumin:Creatinine Ratio [facility] Start: 1957 Pneumococcal Vaccine : 65+ (1 - PCV) Pneumococcal Vaccine: 65+ (1 - PCV) [facility] Start: 1957 Pneumococcal Vaccine : 65+ (1 of 2 - PCV) Pneumococcal Vaccine: 65+ (1 of 2 - PCV) [facility] Start: 1957 PNEUMOCOCCAL: 65+ (1 - PCV) PNEUMOCOCCAL: 65+ (1 - PCV) [facility] Start: 1951 Abdominal aortic aneurysm screening [facility] Start: 1951 ABDOMINAL AORTIC ANEURYSM SCREENING ABDOMINAL AORTIC ANEURYSM SCREENING [facility] Start: 1951 Hepatitis C screening Hepatitis C [place], [place] Start: 1951 Screening for malign ant neoplasm of colon [facility] BLOOD CULTURE 1 BLOOD CULTURE 1 Lab Routine 03/24/2024 10:05 PM [facility] BLOOD CULTURE 2 BLOOD CULTURE 2 Lab Routine 03/24/2024 10:06 PM [facility] Cancer Ag 19-9 [Units/volume] in Serum or Plasma CA 19-9 BLD Lab Routine Malignant neoplasm of head of pancreas (HCC) 04/20/2022 9:46 AM [facility] Work Phone: Cancer Ag 19-9 [Units/volume] in Serum or Plasma CA 19-9 BLD Lab Routine Malignant neoplasm of head of pancreas (HCC) Anemia, unspecified type 05/11/2022 8:59 AM [facility] Work Phone: Cancer Ag 19-9 [Units/volume] in Serum or Plasma CA 19-9 BLD Lab Routine Malignant neoplasm of head of pancreas (HCC) 06/29/2022 10:17 AM [facility] Work Phone: Cancer Ag 19-9 [Units/volume] in Serum or Plasma CA 19-9 BLD Lab Routine Malignant neoplasm of head of pancreas (HCC) 08/02/2022 10:21 AM [facility] Work Phone: Cancer Ag 19-9 [Units/volume] in Serum or Plasma CA 19-9 BLD Lab Routine Malignant neoplasm of head of pancreas (HCC) 09/29/2022 10:18 AM [facility] Work Phone: Cancer Ag 19-9 [Units/volume] in Serum or Plasma CA 19-9 BLD Lab Routine 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) 02/01/2023 11:18 AM [facility] Work Phone: Cancer Ag 19-9 [Units/volume] in Serum or Plasma CA 19-9 BLD Lab Routine 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) Type 2 diabetes mellitus without complication, with long-term current use of insulin (HCC) LINDSEY (dyspnea on exertion) 04/05/2023 1:44 PM [facility] Work Phone: Cancer Ag 19-9 [Units/volume] in Serum or Plasma CA 19-9 BLD Lab Routine Type 2 diabetes mellitus without complication, with long-term current use of insulin (HCC) Severe protein-calorie malnutrition (HCC) Malignant neoplasm of head of pancreas (HCC) Anemia, unspecified type 05/05/2023 1:13 PM [facility] Work Phone: Cancer Ag 19-9 [Units/volume] in Serum or Plasma CA 19-9 BLD Lab Routine Malignant neoplasm of head of pancreas (HCC) 07/05/2023 10:33 AM [facility] Work Phone: Cancer Ag 19-9 [Units/volume] in Serum or Plasma CA 19-9 BLD Lab Routine Malignant neoplasm of head of pancreas (HCC) Type 2 diabetes mellitus without complication, with long-term current use of insulin (HCC) Neuropathy Severe protein-calorie malnutrition (HCC) 08/02/2023 10:23 AM [facility] Work Phone: Cancer Ag 19-9 [Units/volume] in Serum or Plasma CA 19-9 BLD Lab Routine Malignant neoplasm of head of pancreas (HCC) 08/23/2023 10:51 AM [facility] Work Phone: Cancer Ag 19-9 [Units/volume] in Serum or Plasma CA 19-9 Lab Routine Malignant neoplasm of head of pancreas (HCC) Neuropathy 10/03/2023 11:18 AM [facility] Work Phone: Cancer Ag 19-9 [Units/volume] in Serum or Plasma CA 19-9 Lab Routine Malignant neoplasm of head of pancreas (HCC) 10/31/2023 10:33 AM T [facility] Work Phone: Cancer Ag 19-9 [Units/volume] in Serum or Plasma CA 19-9 Lab Routine Malignant neoplasm of head of pancreas (HCC) 11/20/2023 8:09 AM [facility] Work Phone: Cancer Ag 19-9 [Units/volume] in Serum or Plasma CA 19-9 Lab Routine Malignant neoplasm of head of pancreas (HCC) 02/12/2024 8:46 AM [facility] Work Phone: Cancer Ag 19-9 [Units/volume] in Serum or Plasma CA 19-9 Lab Routine Malignant neoplasm of head of pancreas (HCC) 04/02/2024 9:50 AM [facility] Work Phone: Clostridioides diffi cile toxin genes [Presence] in Stool by MIRTHA with probe detection C. DIFFICILE PCR Lab Routine Malignant neoplasm of head of pancreas (HCC) Diarrhea, unspecified type Ordered: 03/07/2022 [facility] Work Phone: Comment on above: Ordered: 03/07/2022 End: 05-04-2025 CT Abdomen and Pelvis W contrast IV CT ABD/PEL W IVCON Radiology Routine Malignant neoplasm of head of pancreas (HCC) 1 Occurrences starting 04/04/2024 until 05/04/2025 [facility] Work Phone: Comment on above: 1 Occurrences starti ng 04/04/2024 until 05/04/2025 End: 05-04-2025 CT Chest W contrast IV CT CHEST W IVCON Radiology Routine Malignant neoplasm of head of pancreas (HCC) 1 Occurrences starting 04/04/2024 until 05/04/2025 [facility] Comment on above: 1 Occurrences starti ng 04/04/2024 until 05/04/2025 End: 01-20-2024 CT CHEST W IVCON PE CT CHEST W IVCON PE Radiology STAT Chest pain, unspecified type LINDSEY (dyspnea on exertion) 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) Anemia, unspecified type Type 2 diabetes mellitus without complication, with long-term current use of insulin (HCC) 1 Occurrences starting 12/21/2022 until 01/20/2024 [facility] Work Phone: Comment on above: 1 Occurrences starti ng 12/21/2022 until 01/20/2024 IR PORTOCATH PLACEMENT IR PORTOC ATH PLACEMENT Radiology Routine Malignant neoplasm of head of pancreas (HCC) Ordered: 02/22/2022 [facility] Work Phone: Comment on above: Ordered: 02/22/2022 Patient Education Head injury in adults [facility] Work Phone: Patient referral [facility] Work Phone: REFERRAL FOR ADDITIO NAL BIOMARKER AND MOLECULAR TESTING REFERRAL FOR ADDITIONAL BIOMARKER AND MOLECULAR TESTING Lab Routine Malignant neoplasm of head of pancreas (HCC) 02/27/2022 10:40 PM EDT [facility] Work Phone: RFA Portal vein View s W contrast IV IR PORTAL VENOGRAM Radiology STAT Central line complication, initial encounter Ordered: 11/29/2023 [facility] Work Phone: Comment on above: Ordered: 11/29/2023 UA DIP, URINE (POC) UA DIP, URIN E (POC) Lab Routine Malignant neoplasm of head of pancreas (HCC) Frequency of urination Ordered: 10/11/2023 [facility] Comment on above: Ordered: 10/11/2023 End: 10-02-2024 US Lower extremity veins - bilateral US LEG VEIN DVT SADIE [facility] LAB Vascular Lab STAT Leg swelling 1 Occurrences starting 10/03/2023 until 10/02/2024 [facility] Comment on above: 1 Occurrences starti ng 10/03/2023 until 10/02/2024 End: 12-21-2024 XR Chest Single view XR CHEST 1V FRONTAL PORT Radiology Routine Malignant neoplasm of head of pancreas (HCC) Central line complication, initial encounter 1 Occurrences starting 11/22/2023 until 12/21/2024 [facility] Work Phone: Comment on above: 1 Occurrences starti ng 11/22/2023 until 12/21/2024 [facility] Immunizations Immunization Date Immunization Notes Care Provider Fa cility 12-15-2022 tetanus toxoid, redu pascual diphtheria toxoid, and acellular pertussis vaccine, adsorbed II Giovanni Salinas Work Phone: [facility] 12-27-2020 COVID-19 vaccine ([place]) Eyad Manriquez MD Work Phone: [facility] Payers Date Payer Category Payer Self-pay [id number] 2019 Private Health Insurance [employer]ET[employer] A ETNA MEDICARE SUPPLEMENT [id number] 2019-Present [phone] [address] [address] [place] [address] Indemnity [id number] 2019 Private Health Insurance [id number] .[id number] 2016 Medicare MEDICARE MEDICAR E A AND B [id number] 2016-Present [phone] [address] [address] [place] [address] Medicare [id number] .[id number] 2016 Medicare [id number] .[id number] 1959 Medicare [id number] .[id number] 1959 Private Health Insurance CLI [id number] .2.7.3.830229.315 1951 Unknown [id number] 2.16.840.1.254707.3.579 .2.173 1951 Unknown [id number] 2.16.840.1.085149.3.579 .2.173 1951 Unknown [id number] 2.16.840.1.668836.3.579 .2.593 1951 Unknown [id number] 2.16.840.1.456427.3.579 .2.593 1951 Unknown [id number] 2.16.840.1.863085.3.579 .2.593 1951 Unknown [id number] 2.16.840.1.277288.3.579 .2.593 1951 Unknown [id number] 2.16.840.1.164656.3.579 .2.593 1951 Unknown [id number] 2.16.840.1.616878.3.579 .2.593 1951 Unknown [id number] 2.16.840.1.608858.3.579 .2.593 1951 Unknown [id number] 2.16.840.1.460896.3.579 .2.593 1951 Unknown [id number] 2.16.840.1.079123.3.579 .2.593 1951 Unknown [id number] 2.16.840.1.286384.3.579 .2.593 1951 Unknown [id number] 2.16.840.1.790950.3.579 .2.593 1951 Unknown [id number] 2.16.840.1.465502.3.579 .2.593 1951 Unknown [id number] 2.16.840.1.334986.3.579 .2.593 1951 Unknown [id number] 2.16.840.1.669825.3.579 .2.593 1951 Unknown [id number] 2.16.840.1.574024.3.579 .2.1259 1951 Unknown [id number] 2.16.840.1.641783.3.579 .2.1259 1951 Unknown [id number] 2.16.840.1.933701.3.579 .2.1259 Unknown [id number] 2.16.840.1.275134.3.579 .2.531 Social History Date Type Detail Facility Start: 03-09-2020 Tobacco smoking stat us [facility] Unknown if ever smoked CARLO Kwan Start: 1950 Sex Assigned At Not on file M [facility]LO Reece Start: 03-18-2020 End: 10-26-2022 Tobacco smoking status NHIS Former smoker [facility] Start: 03-18-1977 End: 11-20-2019 History of tobacco use Current smoker [facility] Kwan Start: 03-18-1977 End: 11-20-2019 History of tobacco use Cigarette Smoker [facility] Start: 03-18-2020 End: 04-01-2024 Alcohol intake Ex-drinker (finding) Zayda Kwan Y Start: 05-08-2020 End: 11-02-2023 Cigarettes smoked current (pack per day) - Reported 1 [facility] Start: 05-08-2020 End: 10-26-2022 Tobacco use and exposure Smokeless tobacco non-user [facility] Start: 03-24-2020 History SDOH Financial 5 [facility] Start: 03-24-2020 History SDOH Food Worry 1 [facility] Start: 03-24-2020 History SDOH Transpo rt Med 2 [facility] Start: 1950 Sex Assigned At Male [facility] Start: 02-05-2022 End: 04-20-2022 Exposure to SARS-CoV-2 (event) Not sure [facility] History of tobacco use Passive smoker [facility] Start: 11-10-2022 End: 11-02-2023 Tobacco use panel [facility] How hard is it for y ou to pay for the very basics like food, housing, medical care, and heating Not hard at all [facility] (I/We) worried frederic er (my/our) food would run out before (I/we) got money to buy more. Never true [facility] Start: 01-13-2021 Gender identity Identifies as male gender (finding) [facility] Within the last year , have [...] Equipment Origin al Text Equipment Identifier Dates [id number] Start: 10-26-2022 End: 06-08-2023 Comment on above: use to test BLOOD MCCARTHY GAR TWICE DAILY INJECT ONCE DAILY Tray Powerline Surecuff 5fr Polyurethane Catheter 1 Lumen Microintroducer - [id number] Start: 03-30-2020 Tray Powerline Surecuff 5fr Polyurethane Catheter 1 Lumen Microintroducer - [id number] Start: 12-15-2020 Mesh Surgipro Me dium Clear Polypropylene 2cm Surgical Nonabsorbable Plug - [id number] Start: 01-06-2021 Stent Denton Viabi l 8mm Metal 80mm 200cm Endoprosthesis No Hole Full Cover - [id number] Start: 2021 [id number] Start: 03-02-2022 Comment on above: Description: Port in serted at [facility] IR; Saline only flushes 1 each by Other route in the morning and 1 each before bedtime. [id number] Start: 12-02-2022 Use as instructed [id number] Start: 11-17-2022 End: 11-17-2023 use to test BLOO D SUGAR TWICE DAILY [id number] Start: 10-26-2022 End: 06-08-2023 INJECT ONCE DAILY [id number] Start: 10-26-2022 End: 06-08-2023 use to test BLOO D SUGAR TWICE DAILY [id number] Start: 10-26-2022 End: 06-08-2023 Power Port 8f Si ngle Lumen Venous [id number] Start: 12-29-2023 USE DIRECTED to test BLOOD SUGAR IN THE MORNING and BEFORE bedtime [id number] Start: 02-19-2024 Clinical Notes 03-09-2020 to 04-05-2024 [...] time, 12 pm scan time. DEVYN Pelayo [facility] 04-05-2024 Miscellaneous Notes I spoke with the [...] visit. Raul Proctor documented in this encounter [facility] 04-04-2024 Telephone encounter Note Pt's spouse notified and agrees to CT. BRM/Yordy: CT orders pended. Clerical: Pt's spouse requests that you call her tomorrow afternoon to schedule the CT. Has only specific days that are available. Thanks, Allie Cortez RN [facility] 04-04-2024 Telephone encounter Note ----- Message from Vivek Smith MD sent at 04/04/2024 12:52 PM EST ----- Please inform the patient that his tumor marker has increased slightly. If in agreement please schedule CT chest/abdomen/pelvis to be done before his return visit. Raul Proctor [facility] 04-02-2024 History of Present illness Narrative PATIENT [...] last visit he was admitted to [facility]. 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 Resumed Eldred and Abraxane 11/23/2022 - 12/14/2022. Stopped due to poor tolerance. Restarted Eldred and Abraxane dose reduced, 2 week on [...] 5. Hypotension The patient was admitted to [facility] 10/16/2023 with dehydration, hypoglycemia, and hypotension. Blood pressure currently stable on midodrine. Continue management per PCP. 6. Central line complication - ICD9: 996.74, ICD10: T82.9XXA Since October 2023 the patient had intermittent redness around the port tube under the skin over his right chest wall. Portogram 12/01/2023 at [facility] was negative. He was given oral antibiotics for possible infection and the symptoms resolved, but continued to recur with each infusion. The right chest infusaport was removed 12/29/2023 and was found to have a small tear noted in the catheter at/near the IJV entry. New Ffajgf-g-Rgzx placed 12/29/2023. Yordy Moncada APRN.ROBERT I spent a total of 30 minutes on the date of the service which included preparing to see the patient, oobj-jb-wkel patient care, completing clinical documentation, obtaining and/or reviewing separately obtained history, performing a medically appropriate examination, counseling and educating the patient/family/caregiver, ordering medications, tests, or procedures, independently interpreting results (not separately reported), and communicating results to the patient/family/caregiver. documented in this encounter [facility] 04-02-2024 Note [facility] 04-01-2024 History of Present illness Narrative Images from the original note were not included. HPI Follow-up Additional comments: [facility] stay admitted 03/25/24 dx: pneumonia discharged home 03/26/24 with rx for levaquin Last edited by Erin Hylton LPN on 04/01/2024 2:15 PM. Subjective Patient ID: Trinity Perry is a 73 y.o. male who presents for Follow-up (H stay admitted 03/25/24 dx: pneumonia discharged home 03/26/24 with rx for levaquin). Flowsheet Row Patient Outreach from 03/29/2024 in [facility] with Katie Monday, WRAPPER OFF Hospital Information ED, Hospital or Nursing Home Facility Discharge? Hospital Patient has been contacted within two business days of discharge Yes Diagnosis pneumonia, hyponatremia, weakness Discharge Date 03/26/24 Discharged To: Home Setting Discharge [facility] Engagement Call Start Time 1133 Admission [...] 500 mg by mouth Daily Continuous Glucose Tie Presser (FreeStyle Flaco 3 [place]) device 1 Device yearly 1 each 0 Continuous Glucose Sensor (FreeStyle Flaco 3 Plus Sensor) misc 1 Units See administration instructions 1 sensor every 15 days. 6 each 3 Drug Bolton Unilet Lancets 30G misc 1 each by [...] 50 each 2 [DISCONTINUED] Continuous Blood Gluc Tie Presser (Dexcom G7 Tie Presser) device 1 Device yearly. 1 each 0 [...] follow-ups on file. documented in this encounter [facility] 03-18-2024 Telephone encounter Note Patient coming in Monday03/27/24 for follow up treatment. Please add lab orders. Thanks. Christi Blum MA [facility] 03-18-2024 Miscellaneous Notes Patient coming in Monday03/27/24 for follow up treatment. Please add lab orders. Thanks. Christi Blum MA documented in this encounter [facility] 03-07-2024 Telephone encounter Note Pt notified and will be here today at 11 for treatment. Josephine Salomon RN [facility] Work Phone: 03-07-2024 Miscellaneous Notes Pt [...] when to restage. documented in this encounter [facility] 03-07-2024 Telephone encounter Note ----- Message from Vivek Smith MD sent at 03/06/2024 4:18 PM EDT ----- Please inform the patient that his tumor marker is relatively stable. We will continue with chemo as planned. When he returns in 3 weeks we will then discuss when to restage. [facility] 03-05-2024 Nurse Note Can patient take Tylenol? Janet Dotson MA [facility] 03-05-2024 Nurse Note Can patient take Tylenol? Janet Dotson MA documented in this encounter [facility] 03-04-2024 Note [facility] 03-04-2024 History of Present illness Narrative PATIENT [...] polyneuropathy, without long-term current use of insulin ([facility]) 06/07/2023 Gastric outlet obstruction Obstructive [...] Microsatellite stable, tumor mutational burden 2 KRAS [id number], RON [id number] positive LABORATORY DATA: Hemoglobin (g/dL) Date Value [...] 05/11/2022 (patient elected to stop chemo). Resumed Eldred and Abraxane 11/23/2022 - 12/14/2022. Stopped due to poor tolerance. Restarted Eldred and Abraxane dose reduced, 2 week on [...] 5. Hypotension The patient was admitted to [facility] 10/16/2023 with dehydration, hypoglycemia, and hypotension. Blood pressure currently stable on midodrine. Continue management per PCP. 6. Central line complication - ICD9: 996.74, ICD10: T82.9XXA Since October 2023 the patient had intermittent redness around the port tube under the skin over his right chest wall. Portogram 12/01/2023 at [facility] was negative. He was given oral antibiotics for possible infection and the symptoms resolved, but continued to recur with each infusion. The right chest infusaport was removed 12/29/2023 and was found to have a small tear noted in the catheter at/near the IJV entry. New Nioiml-j-Dohx placed 12/29/2023. Vivek Smith MD documented in this encounter [facility] 02-10-2024 Note [facility] 02-10-2024 History of Present illness Narrative PATIENT [...] mg by mouth once daily.^Disp: ^Rfl: pantoprazole (PROTONIX) 20 mg tablet^Take 1 tablet by [...] Microsatellite stable, tumor mutational burden 2 KRAS [id number], RON [id number] positive LABORATORY DATA: Hemoglobin (g/dL) Date Value [...] 05/11/2022 (patient elected to stop chemo). Resumed Eldred and Abraxane 11/23/2022 - 12/14/2022. Stopped due to poor tolerance. Restarted Eldred and Abraxane dose reduced, 2 week on [...] 5. Hypotension The patient was admitted to [facility] 10/16/2023 with dehydration, hypoglycemia, and hypotension. Blood pressure currently stable on midodrine. Continue management per PCP. 6. Central line complication - ICD9: 996.74, ICD10: T82.9XXA Since October 2023 the patient had intermittent redness around the port tube under the skin over his right chest wall. Portogram 12/01/2023 at [facility] was negative. He was given oral antibiotics for possible infection and the symptoms resolved, but continued to recur with each infusion. The right chest infusaport was removed 12/29/2023 and was found to have a small tear noted in the catheter at/near the IJV entry. New Iyqwpy-s-Fxyq placed 12/29/2023. Vivek Smith MD documented in this encounter [facility] 01-23-2024 History of Present illness Narrative [...] Microsatellite stable, tumor mutational burden 2 KRAS [id number], RON [id number] positive LABORATORY DATA: Hemoglobin (g/dL) Date Value [...] 05/11/2022 (patient elected to stop chemo). Resumed Eldred and Abraxane 11/23/2022 - 12/14/2022. Stopped due to poor tolerance. Restarted Eldred and Abraxane dose reduced, 2 week on [...] 5. Hypotension The patient was admitted to [facility] 10/16/2023 with dehydration, hypoglycemia, and hypotension. Blood pressure currently stable on midodrine. Continue management per PCP. 6. Central line complication - ICD9: 996.74, ICD10: T82.9XXA Since October 2023 the patient had intermittent redness around the port tube under the skin over his right chest wall. Portogram 12/01/2023 at [facility] was negative. He was given oral [...] which included preparing to see the patient, rlkl-gq-jlid patient care, completing clinical documentation, performing a medically appropriate examination, counseling and educating the patient/family/caregiver, ordering medications, tests, or procedures, independently interpreting results (not separately reported), communicating results to the patient/family/caregiver, and care coordination (not separately reported). documented in this encounter [facility] 01-23-2024 Note [facility] 01-04-2024 Telephone encounter Note Pt , Brittni, informed of MM message and denies any questions, needs or concerns at this time. Appointment verified. Key Travis RN [facility] 01-04-2024 Miscellaneous Notes Pt , Brittni, informed of MM message and denies any questions, needs or concerns at this time. Appointment verified. Key Travis RN ----- Message from Greta Wetzel PA-C sent at 01/04/2024 11:40 AM EDT ----- Please call with improving ca19-9 documented in this encounter [facility] 01-04-2024 Telephone encounter Note ----- Message from Greta Wetzel PA-C sent at 01/04/2024 11:40 AM EDT ----- Please call with improving ca19-9 [facility] 01-03-2024 Note [facility] 01-03-2024 History of Present illness Narrative PATIENT [...] Microsatellite stable, tumor mutational burden 2 KRAS [id number], RON [id number] positive LABORATORY DATA: Hemoglobin (g/dL) Date Value [...] 05/11/2022 (patient elected to stop chemo). Resumed Eldred and Abraxane 11/23/2022 - 12/14/2022. Stopped due to poor tolerance. Restarted Eldred and Abraxane dose reduced, 2 week on [...] 5. Hypotension The patient was admitted to [facility] 10/16/2023 with dehydration, hypoglycemia, and hypotension. Blood pressure currently stable on midodrine. Continue management per PCP. 6. Central line complication - ICD9: 996.74, ICD10: T82.9XXA Since October 2023 the patient had intermittent redness around the port tube under the skin over his right chest wall. Portogram 12/01/2023 at [facility] was negative. He was given oral [...] which included preparing to see the patient, klqf-ex-cplu patient care, completing clinical documentation, performing a medically appropriate examination, counseling and educating the patient/family/caregiver, ordering medications, tests, or procedures, independently interpreting results (not separately reported), communicating results to the patient/family/caregiver, and care coordination (not separately reported). documented in this encounter [facility] 01-02-2024 Telephone encounter Note Patient coming in Monday01/03/24 for follow up treatment. Please add lab orders. Thanks. Christi Blum MA [facility] 12-27-2023 Miscellaneous Notes You are scheduled for a Port Removal, On 12/29/2023. You are to arrive at 09:00 am and Report to [facility] Radiology Outpatient Desk [id number] You can expect [...] Labs: Lab-work needs to be drawn? No.. Upper Leather Cutter/Transportation: How will you be arriving for your procedure? Private car. You will need a responsible adult to accompany you to and from the procedure. Your catshovel driver is required to stay with you until you are taken into the procedure room. documented in this encounter [facility] 12-27-2023 Telephone encounter Note You are scheduled for a Port Removal, On 12/29/2023. You are to arrive at 09:00 am and Report to [facility] Radiology Outpatient Desk [id number] You can expect [...] Labs: Lab-work needs to be drawn? No.. Upper Leather Cutter/Transportation: How will you be arriving for your procedure? Private car. You will need a responsible adult to accompany you to and from the procedure. Your catshovel driver is required to stay with you until you are taken into the procedure room. [facility] 12-26-2023 Telephone encounter Note Called pt unable to leave message at Home #. Left message non detailed message on Cell phone to call back to Radiology Office # [facility] 12-26-2023 Miscellaneous Notes Called pt unable to leave message at Home #. Left message non detailed message on Cell phone to call back to Radiology Office # documented in this encounter [facility] 12-13-2023 Note [facility] 12-13-2023 History of Present illness Narrative Alfred [...] Daja Carnes RN documented in this encounter [facility] 12-10-2023 Note [facility] 12-10-2023 History of Present illness Narrative PATIENT [...] his right chest wall. Portogram 12/01/2023 at [facility] was negative. He was given oral antibiotics for possible infection and the symptoms have resolved. He feels relatively well today and desires to proceed with treatment as planned. Redness around port tube under skin right upper CW. Portagrtam 11/30 at [facility] neg. Given oral abx. Better now [...] Microsatellite stable, tumor mutational burden 2 KRAS [id number], RON [id number] positive LABORATORY DATA: Hemoglobin (g/dL) Date Value [...] 05/11/2022 (patient elected to stop chemo). Resumed Eldred and Abraxane 11/23/2022 - 12/14/2022. Stopped due to poor tolerance. Restarted Eldred and Abraxane dose reduced, 2 week on [...] 5. Hypotension The patient was admitted to [facility] 10/16/2023 with dehydration, hypoglycemia, and hypotension. Blood pressure currently stable on midodrine. Continue management per PCP. 6. Central line complication - ICD9: 996.74, ICD10: T82.9XXA Since October 2023 the patient has had intermittent redness around the port tube under the skin over his right chest wall. Portogram 12/01/2023 at [facility] was negative. He was given oral antibiotics for possible infection and the symptoms have resolved. Will monitor closely for complications. If symptoms persist the port most likely would need to be changed. Vivek Smith MD documented in this encounter [facility] 12-05-2023 Telephone encounter Note Pt's notified of normal portogram results. Josephine Salomon RN [facility] Work Phone: 12-05-2023 Miscellaneous Notes Pt's notified of normal portogram results. Josephine Salomon RN documented in this encounter [facility] 11-29-2023 Telephone encounter Note Order faxed. Pt notified that we are ordering additional testing. Josephine Salomon RN [facility] Work Phone: 11-29-2023 Miscellaneous Notes Order faxed. Pt notified that we are ordering additional testing. Josephine Salomon RN Spoke with Mandi at [facility] who states they need a portogram [...] call back tomorrow morning to Mandi at [phone] ext [phone] Josephine Salomon RN Did the xray evaluate the catheter during injection of dye? We needed the actual tubing evaluated as this is where the redness occurs for him. To me, it looks like just a typical cxr, we used to do ltqy-s-elubl or venograms, but I don't know if [...] Josephine Salomon RN documented in this encounter [facility] 11-29-2023 Telephone encounter Note Spoke with Mandi at [facility] who states they need a portogram order. Explained to Mandi that we do not have a portogram order. Will fax IR central line injection order and in comments put portogram. Mandi aware of pt's situation and what we're looking for and will schedule this according. Please sign pending orders. Thanks Josephine Salomon RN [facility] 11-28-2023 Telephone encounter Note Called and spoke with radiology. They do not know what needs to be ordered for this and request that we call back tomorrow morning to Mandi at [phone] ext [phone] Josephine Salomon RN [facility] 11-28-2023 Telephone encounter Note Did the xray evaluate the catheter during injection of dye? We needed the actual tubing evaluated as this is where the redness occurs for him. To me, it looks like just a typical cxr, we used to do djhy-m-ggsyr or venograms, but I don't know if that is still possible. Greta Wetzel PA-C [facility] 11-28-2023 Telephone encounter Note Call received from pt's asking what is going to be done about pt's port and recurring infection. With both of patients last two treatments his port site became red and he was placed on antibiotics for this. Pt is still on his antibiotic currently. CXR was negative. Please advise Josephine Salomon RN [facility] 11-22-2023 Telephone encounter Note Signed. PSS: please schedule Greta Wetzel PA-C [facility] 11-22-2023 Miscellaneous Notes Signed. PSS: please [...] Patient has requested the xray be scheduled @[facility] if not [facility]. He prefers not to be schedule@[facility] Rx and xray orders pended. PATIENT WOULD LIKE TO BE CALLED documented in this encounter [facility] 11-22-2023 Telephone encounter Note Patient has [...] Patient has requested the xray be scheduled @[facility] if not [facility]. He prefers not to be schedule@[facility] Rx and xray orders pended. PATIENT WOULD LIKE TO BE CALLED [facility] 11-22-2023 Note [facility] 11-22-2023 History of Present illness Narrative Patient [...] Lashaun Riojas RN documented in this encounter [facility] 11-19-2023 Note [facility] 11-19-2023 History of Present illness Narrative PATIENT [...] Microsatellite stable, tumor mutational burden 2 KRAS [id number], RON [id number] positive LABORATORY DATA: Hemoglobin (g/dL) Date Value [...] concerning for metastases, stable. 08/18/2023 CT abdomen/pelvis ([facility]) IMPRESSION: 1. Again noted is metastatic [...] 05/11/2022 (patient elected to stop chemo). Resumed Eldred and Abraxane 11/23/2022 - 12/14/2022. Stopped due to poor tolerance. Restarted Eldred and Abraxane dose reduced, 2 week on [...] 5. Hypotension The patient was admitted to [facility] 10/16/2023 with dehydration, hypoglycemia, and hypotension. Blood pressure currently stable on midodrine. Continue management per PCP. Vivek Smith MD documented in this encounter [facility] 11-17-2023 History of Present illness Narrative [...] PATIENT PRESENTS WITH AN IMPLANTABLE OR ATTACHED SURGICAL SUPPLIES STERILIZER: No RADIOLOGY DEPARTMENT: CT; Exam(s) Completed: Chest Abdomen Pelvis PERIPHERAL IV DATA: Site assessment: Clean,Dry and Intact, Site disposition Discontinued SIGNED BY: RT Amadna(R) November 17, 2023 11:05 AM POWER port scanned 02/2022 documented in this encounter [facility] 11-17-2023 Note [facility] 11-17-2023 Note [facility] 11-02-2023 Note [facility] 11-02-2023 History of Present illness Narrative PATIENT NAME: Trinity Perry [employer] NO.: [id number] ATTENDING PHYSICIAN: Grace Bess MD DATE OF [...] lymph nodes. 2. NGS Tissue Based: KRAS [id number], EGFR amplified and RAC 1 Amplified , [...] covered stent 4. CT 01/2022- recurrence 5. Eldred and Abraxane 03/16/2022-05/11/2022 ( elected to stop chemo) 6. Resumed Eldred and Abraxane 11/23/2022- 12/14/2022- Stopped due to poor tolerance 7. Restarted Eldred and Abraxane dose reduced, 2 week on [...] Range Status 10/31/2023 12.6 % Final Abs [place] Date Value Ref Range Status 10/31/2023 0.61 [...] rising CA 19-9 and elected to restart Eldred and Abraxane 11/23/2022. However, he had a very poor tolerance of therapy and has had declinind QOL. Therapy was held at that time 12/14/2022 Discussed the current status and rising CA 199 and options of no therapy, repeat chemo with dose modifications and or Xeloda. He wants to restart Eldred and Abraxane, which he was on 02/01/2023 and dose reduced and have a 2 week on and 2 week off schedule. Slight delay due to Thanksgiving and URI, his neuropathy is worst and the Abraxane was stopped and continued Eldred. CT 04/2023 wit progressive disease. I had [...] which included preparing to see the patient, baoq-oc-vbqj patient care, completing clinical documentation, performing a medically appropriate examination, counseling and educating the patient/family/caregiver, ordering medications, tests, or procedures, independently interpreting results (not separately reported), and communicating results to the patient/family/caregiver. documented in this encounter [facility] 11-02-2023 Note [facility] 11-02-2023 History of Present illness Narrative Patient [...] Lashaun Riojas RN documented in this encounter [facility] 10-31-2023 Note Addended by: GRACE COHEN on: 10/31/2023 11:48 AM Modules accepted: Orders [facility] 10-31-2023 Miscellaneous Notes Addended by: GRACE BESS on: 10/31/2023 11:48 AM Modules accepted: Orders documented in this encounter [facility] 10-31-2023 Note [facility] 10-31-2023 History of Present illness Narrative PATIENT NAME: Trinity Perry [employer] NO.: [id number] ATTENDING PHYSICIAN: Grace Bess MD DATE OF [...] lymph nodes. 2. NGS Tissue Based: KRAS [id number], EGFR amplified and RAC 1 Amplified , [...] covered stent 4. CT 01/2022- recurrence 5. Eldred and Abraxane 03/16/2022-05/11/2022 ( elected to stop chemo) 6. Resumed Eldred and Abraxane 11/23/2022- 12/14/2022- Stopped due to poor tolerance 7. Restarted Eldred and Abraxane dose reduced, 2 week on [...] Range Status 10/31/2023 12.6 % Final Abs [place] Date Value Ref Range Status 10/31/2023 0.61 [...] rising CA 19-9 and elected to restart Eldred and Abraxane 11/23/2022. However, he had a very poor tolerance of therapy and has had declinind QOL. Therapy was held at that time 12/14/2022 Discussed the current status and rising CA 199 and options of no therapy, repeat chemo with dose modifications and or Xeloda. He wants to restart Eldred and Abraxane, which he was on 02/01/2023 and dose reduced and have a 2 week on and 2 week off schedule. Slight delay due to Thanksgiving and URI, his neuropathy is worst and the Abraxane was stopped and continued Eldred. CT 04/2023 wit progressive disease. I had [...] do not hesitate to contact me at [phone]. Grace Bess MD Hematology/Medical Oncology [facility] CC: Giovanni Hamlin MD I spent a total of 30 minutes on the date of the service which included preparing to see the patient, mdra-hg-ucso patient care, completing clinical documentation, obtaining and/or reviewing separately obtained history, performing a medically appropriate examination, counseling and educating the patient/family/caregiver, ordering medications, tests, or procedures, and independently interpreting results (not separately reported). documented in this encounter [facility] 10-18-2023 Telephone encounter Note EMERGENCY ROOM [...] Patient reminded of her follow-up appointment with [facility] provider, Dr Bess on 11/03/23: Yes Next Chief Talent Officer outreach with patient scheduled? As needed Discussed [...] next outreach appointment? YES Josephine Salomon RN [facility] Work Phone: 10-18-2023 Miscellaneous Notes EMERGENCY [...] Patient reminded of her follow-up appointment with [facility] provider, Dr Bess on 11/03/23: Yes Next Chief Talent Officer outreach with patient scheduled? As needed Discussed [...] well. Darline: can you get records from [place] please. Thanks Josephine Salomon RN documented in this encounter [facility] 10-17-2023 Telephone encounter Note Available records scanned. Patient is still there under observation. [facility] 10-17-2023 Telephone encounter Note Pt's calls stating pt went to the hospital last night because he wasn't responding to her. She states she doesn't think his glucometer is working right. Pt's sugar was much lower when the EMS checked it than what his was reading. states pt was very dehydrated as well. Darline: can you get records from [place] please. Thanks Josephine Salomon RN [facility] 10-17-2023 Telephone encounter Note LVM to notify pt that script he requested was sent. [facility] 10-17-2023 Miscellaneous Notes LVM to notify [...] send a message. documented in this encounter [facility] 10-13-2023 Telephone encounter Note Cipro sent [facility] 10-13-[address] Osorio- if you are okay sending a script pt uses [facility] [place]. [facility] 10-13-2023 Telephone encounter Note Pt here [...] vacation but requested we send a message. [facility] 10-11-2023 Note HNO ID: [id number] Author: SAMINA RAE MA Service: ? Author Type: Supply Analyst Type: Progress Notes Filed: 10/11/2023 13:27 Note Text: Back office UA test performed. Results entered in [employer] and doctor notified. Samina Rae MA [facility] 10-11-2023 History of Present illness Narrative Back office UA test performed. Results entered in [employer] and doctor notified. Samina Rae MA documented in this encounter [facility] 10-11-2023 Nurse Note Pt complaints of fatigue and weakness today. Samina Rae MA [facility] 10-11-2023 History of Present illness Narrative PATIENT NAME: Trinity Perry [employer] NO.: [id number] ATTENDING PHYSICIAN: Grace Bess MD DATE OF [...] lymph nodes. 2. NGS Tissue Based: KRAS [id number], EGFR amplified and RAC 1 Amplified , [...] covered stent. 4. CT 01/2022- Recurrence. 5. Eldred and Abraxane 03/16/2022-05/11/2022 (Elected to stop chemo). 6. Resumed Eldred and Abraxane 11/23/2022- 12/14/2022- Stopped due to poor tolerance. 7. Restarted Eldred and Abraxane dose reduced, 2 week on [...] Range Status 10/11/2023 7.7 % Final Abs [place] Date Value Ref Range Status 10/11/2023 0.77 [...] rising CA 19-9 and elected to restart Eldred and Abraxane 11/23/2022. However, he had a very poor tolerance of therapy and has had decline in QOL. Therapy was held at that time 12/14/2022. Discussed the current status and rising CA 199 and options of no therapy, repeat chemo with dose modifications and or Xeloda. He wants to restart Eldred and Abraxane, which he was on 02/01/2023 and dose reduced and have a 2 week on and 2 week off schedule. Slight delay due to Thanksgiving and URI, his neuropathy is worst and the Abraxane was stopped and continued Eldred. CT 04/[address] Bess [...] which included preparing to see the patient, genc-yj-ytcj patient care, completing clinical documentation, performing a medically appropriate examination, counseling and educating the patient/family/caregiver, ordering medications, tests, or procedures, independently interpreting results (not separately reported), and communicating results to the patient/family/caregiver. documented in this encounter [facility] 10-11-2023 Note [facility] 10-11-2023 Nurse Note Pt complaints of fatigue and weakness today. Samina Rae MA documented in this encounter [facility] 10-05-2023 Telephone encounter Note Voicemail has not been set up yet. No way to leave a message. Josephine Salomon RN [facility] Work Phone: 10-05-2023 Miscellaneous Notes Voicemail has not been set up yet. No way to leave a message. Josephine Salomon RN ----- Message from Greta Wetzel PA-C sent at 10/04/2023 12:56 PM EDT ----- Please call with improving ca19-9 documented in this encounter [facility] 10-05-2023 Telephone encounter Note ----- Message from Greta Wetzel PA-C sent at 10/04/2023 12:56 PM EDT ----- Please call with improving ca19-9 [facility] 10-04-2023 Telephone encounter Note Pt's voicemail has not been set up yet. Unable to leave a message. Josephine Salomon RN [facility] Work Phone: 10-04-2023 Miscellaneous Notes Pt's voicemail has not been set up yet. Unable to leave a message. Josephine Salomon RN ----- Message from Greta Weztel PA-C sent at 10/03/2023 4:09 PM EDT ----- Please call with negative cxr documented in this encounter [facility] 10-04-2023 Telephone encounter Note ----- Message from Greta Wetzel PA-C sent at 10/03/2023 4:09 PM EDT ----- Please call with negative cxr [facility] 10-04-2023 Telephone encounter Note Spoke with pt spouse. She discussed with pt. Legs not as swollen, will hold off for now and call back if needed. Denies further questions, needs or concerns at this time. KOFI Travis RN [facility] 10-04-2023 Miscellaneous Notes Spoke with pt [...] he wants. Greta Wetzel PA-C [facility] US department called with NEGATIVE DVT report. Key Travis RN Patient has been scheduled for STAT US today @ [place] 10/02 between 1 & 1:30 pm. If positive, Radiology will call w/ results. Ora Jones documented in this encounter [facility] 10-03-2023 Telephone encounter Note Spoke with spouse, Brittni.aware of negative DVT per US, and MM recommendation. Pt is home, she is driving. She will discuss with him and call tomorrow with decision on Lasix. Key Travis RN [facility] 10-03-2023 Telephone encounter Note Please inform the patient of negative DVT. We could start lasix 20 mg daily for a week and see if it helps the swelling if he wants. Greta Wetzel PA-C [facility] 10-03-2023 Telephone encounter Note [facility] department called with NEGATIVE DVT report. Key Travis RN [facility] 10-03-2023 History of Present illness Narrative [...] PATIENT PRESENTS WITH AN IMPLANTABLE OR ATTACHED SURGICAL SUPPLIES STERILIZER: No RADIOLOGY DEPARTMENT: General X-ray: Exam(s) Completed: Chest X-Ray PERIPHERAL IV DATA: Not applicable SIGNED BY: RT Amanda(R) October 03, 2023 12:12 PM documented in this encounter [facility] 10-03-2023 Note [facility] 10-03-2023 Telephone encounter Note Patient has been scheduled for STAT US today @ [place] 10/02 between 1 & 1:30 pm. If positive, Radiology will call w/ results. Ora Jones [facility] 10-03-2023 History of Present illness Narrative PATIENT NAME: Trinity Gupta [facility] NO.: [id number] ATTENDING PHYSICIAN: Grace Bess MD DATE OF [...] lymph nodes. 2. NGS Tissue Based: KRAS [id number], EGFR amplified and RAC 1 Amplified , [...] covered stent. 4. CT 01/2022- Recurrence. 5. Eldred and Abraxane 03/16/2022-05/11/2022 (Elected to stop chemo). 6. Resumed Eldred and Abraxane 11/23/2022- 12/14/2022- Stopped due to poor tolerance. 7. Restarted Eldred and Abraxane dose reduced, 2 week on [...] polyneuropathy, without long-term current use of insulin ([facility]) 06/07/2023 Gastric outlet obstruction Obstructive [...] Range Status 10/03/2023 12.7 % Final Abs [place] Date Value Ref Range Status 10/03/2023 1.25 (H) <0.87 k/uL Final Eosin% Date Value Ref Range Status 12/05/2022 0.9 % Final Abs Eosin Date Value Ref Range Status 10/03/2023 <0.03 <0.46 k/uL Final Basophils % Date Value Ref Range Status 10/03/2023 0.4 % Final Abs Baso Date Value Ref Range Status 10/03/2023 0.04 <0.11 k/uL Final PATH: [place] on November: SYNOPTIC REPORT OF [...] rising CA 19-9 and elected to restart Eldred and Abraxane 11/23/2022. However, he had a very poor tolerance of therapy and has had decline in QOL. Therapy was held at that time 12/14/2022. Discussed the current status and rising CA 199 and options of no therapy, repeat chemo with dose modifications and or Xeloda. He wants to restart Eldred and Abraxane, which he was on 02/01/2023 and dose reduced and have a 2 week on and 2 week off schedule. Slight delay due to Thanksgiving and URI, his neuropathy is worst and the Abraxane was stopped and continued Eldred. CT 04/[address] Bess [...] which included preparing to see the patient, dzzy-pi-gtyb patient care, completing clinical documentation, performing a medically appropriate examination, counseling and educating the patient/family/caregiver, ordering medications, tests, or procedures, independently interpreting results (not separately reported), and communicating results to the patient/family/caregiver. documented in this encounter [facility] 10-03-2023 Note [facility] 09-25-2023 Telephone encounter Note I will place these orders so my day is not delayed, however Yordy saw the patient last and should be the one to place the orders. Greta Wetzel PA-C [facility] 09-25-2023 Miscellaneous Notes I will place these orders so my day is not delayed, however Yordy saw the patient last and should be the one to place the orders. Greta Wetzel PA-C Patient has an appt on 10/03/23. Would you like labs, if so place orders. Janet Dotson MA documented in this encounter [facility] 09-25-2023 Telephone encounter Note Patient has an appt on 10/03/23. Would you like labs, if so place orders. Janet Dotson MA [facility] 09-18-2023 Telephone encounter Note Pt's notified, verbalized understanding Josephine Salomon RN [facility] Work Phone: 09-18-2023 Miscellaneous Notes Pt's [...] Josephine Salomon RN documented in this encounter [facility] 09-18-2023 Telephone encounter Note Agree if fevers and or worse he needs to let us know [facility] 09-18-2023 Telephone encounter Note Pt's calls [...] this helps. Please advise Josephine Salomon RN [facility] 09-13-2023 Note [facility] 09-13-2023 History of Present illness Narrative PATIENT NAME: Trinity Perry [employer] NO.: [id number] ATTENDING PHYSICIAN: Grace Bess MD DATE OF [...] lymph nodes. 2. NGS Tissue Based: KRAS [id number], EGFR amplified and RAC 1 Amplified , [...] covered stent. 4. CT 01/2022- Recurrence. 5. Eldred and Abraxane 03/16/2022-05/11/2022 (Elected to stop chemo). 6. Resumed Eldred and Abraxane 11/23/2022- 12/14/2022- Stopped due to poor tolerance. 7. Restarted Eldred and Abraxane dose reduced, 2 week on [...] Range Status 09/13/2023 15.2 % Final Abs [place] Date Value Ref Range Status 09/13/2023 0.59 [...] rising CA 19-9 and elected to restart Eldred and Abraxane 11/23/2022. However, he had a very poor tolerance of therapy and has had declinind QOL. Therapy was held at that time 12/14/2022. Discussed the current status and rising CA 199 and options of no therapy, repeat chemo with dose modifications and or Xeloda. He wants to restart Eldred and Abraxane, which he was on 02/01/2023 and dose reduced and have a 2 week on and 2 week off schedule. Slight delay due to Thanksgiving and URI, his neuropathy is worst and the Abraxane was stopped and continued Eldred. CT 04/2023 wit progressive disease. I had [...] hesitate to contact Grace Bess MD at [phone]. Yordy Moncada APRN.[facility] Hematology/Medical Oncology [facility] CC: Giovanni Hamlin MD I spent a total of 30 minutes on the date of the service which included preparing to see the patient, klsv-no-hcjv patient care, completing clinical documentation, obtaining and/or reviewing separately obtained history, performing a medically appropriate examination, counseling and educating the patient/family/caregiver, ordering medications, tests, or procedures, independently interpreting results (not separately reported), and communicating results to the patient/family/caregiver. documented in this encounter [facility] 08-23-2023 Note [facility] 08-23-2023 History of Present illness Narrative PATIENT NAME: Trinity Perry [employer] NO.: [id number] ATTENDING PHYSICIAN: Grace Bess MD DATE OF [...] lymph nodes. 2. NGS Tissue Based: KRAS [id number], EGFR amplified and RAC 1 Amplified , [...] covered stent 4. CT 01/2022- recurrence 5. Eldred and Abraxane 03/16/2022-05/11/2022 ( elected to stop chemo) 6. Resumed Eldred and Abraxane 11/23/2022- 12/14/2022- Stopped due to poor tolerance 7. Restarted Eldred and Abraxane dose reduced, 2 week on [...] Range Status 08/23/2023 15.0 % Final Abs [place] Date Value Ref Range Status 08/23/2023 0.72 [...] SYNOPTIC REPORT OF MANJARREZ PATHOLOGIC FINDINGS HAMIPPLE, SOLANGEADER, OMENTUM: PANCREAS EXOCRINE WORKSHEET Specimen: Head [...] rising CA 19-9 and elected to restart Eldred and Abraxane 11/23/2022. However, he had a very poor tolerance of therapy and has had declinind QOL. Therapy was held at that time 12/14/2022 Discussed the current status and rising CA 199 and options of no therapy, repeat chemo with dose modifications and or Xeloda. He wants to restart Eldred and Abraxane, which he was on 02/01/2023 and dose reduced and have a 2 week on and 2 week off schedule. Slight delay due to Thanksgiving and URI, his neuropathy is worst and the Abraxane was stopped and continued Eldred. CT 04/2023 wit progressive disease. I had [...] do not hesitate to contact me at [phone]. Grace Bess MD Hematology/Medical Oncology [facility] CC: Giovanni Hamlin MD I spent a total of 30 minutes on the date of the service which included preparing to see the patient, niqq-me-tatx patient care, completing clinical documentation, obtaining and/or reviewing separately obtained history, performing a medically appropriate examination, counseling and educating the patient/family/caregiver, ordering medications, tests, or procedures, and independently interpreting results (not separately reported). documented in this encounter [facility] 08-21-2023 Miscellaneous Notes Patient coming in Monday01/03/24 for follow up treatment. Please add lab orders. Thanks. Christi Blum MA documented in this encounter [facility] 08-18-2023 History of Present illness Narrative [...] PATIENT PRESENTS WITH AN IMPLANTABLE OR ATTACHED SURGICAL SUPPLIES STERILIZER: No RADIOLOGY DEPARTMENT: CT; Exam(s) Completed: Chest Abdomen Pelvis PERIPHERAL IV DATA: PORT 03/12/22 SIGNED BY: RT Janice(R) August 18, 2023 10:07 AM documented in this encounter [facility] 08-18-2023 Note [facility] 08-18-2023 Note [facility] 08-11-2023 Miscellaneous Notes Call placed to patient again, no answer on both numbers. Left detailed message on [facility] number regarding new updated appts. Ora Jones [...] he has his appointment with Maria Alejandra, noah, and Chemo Treatment on MondayAugust 15. The Patient and his , did not want any of the openings for CT Scans prior to August 15 that I offered. They wanted certain days and certain times, nor did the patient want to come without his . Thanks! DEVYN Pelayo documented in this encounter [facility] 08-09-2023 Miscellaneous Notes Pt called today [...] Josephine Salomon RN documented in this encounter [facility] 08-02-2023 Note [facility] 08-02-2023 History of Present illness Narrative PATIENT NAME: Trinity Perry [employer] NO.: [id number] ATTENDING PHYSICIAN: Grace Bess MD DATE OF [...] lymph nodes. 2. NGS Tissue Based: KRAS [id number], EGFR amplified and RAC 1 Amplified , [...] covered stent 4. CT 01/2022- recurrence 5. Eldred and Abraxane 03/16/2022-05/11/2022 ( elected to stop chemo) 6. Resumed Eldred and Abraxane 11/23/2022- 12/14/2022- Stopped due to poor tolerance 7. Restarted Eldred and Abraxane dose reduced, 2 week on [...] Range Status 08/02/2023 8.9 % Final Abs [place] Date Value Ref Range Status 08/02/2023 0.48 [...] rising CA 19-9 and elected to restart Eldred and Abraxane 11/23/2022. However, he had a very poor tolerance of therapy and has had declinind QOL. Therapy was held at that time 12/14/2022 Discussed the current status and rising CA 199 and options of no therapy, repeat chemo with dose modifications and or Xeloda. He wants to restart Eldred and Abraxane, which he was on 02/01/2023 and dose reduced and have a 2 week on and 2 week off schedule. Slight delay due to Thanksgiving and URI, his neuropathy is worst and the Abraxane was stopped and continued Eldred. CT 04/2023 wit progressive disease. I had [...] do not hesitate to contact me at [phone]. Grace Bess MD Hematology/Medical Oncology [facility] CC: Giovanni Hamlin MD I spent a total of 30 minutes on the date of the service which included preparing to see the patient, prcp-jp-[id number] patient care, completing clinical documentation, obtaining and/or reviewing separately obtained history, performing a medically appropriate examination, counseling and educating the patient/family/caregiver, ordering medications, tests, or procedures, and independently interpreting results (not separately reported). documented in this encounter [facility] 07-19-2023 Note [facility] 07-19-2023 History of Present [...] irinotecan, leucovorin, 5FU Previous Treatment(s): [facility] 12/04/2019, Eldred/Abraxane Pt denies any chewing/swallowing issues, denies current [...] Dosing Weight: 71.5 kg Estimated kilocalorie needs: 1951-6224 kilocalories determined by 30-35 kcal/kg Estimated protein needs: 72-107 grams determined by 1.0-1.5 g/kg Dosing weight Estimated fluid needs: ~3041-2416 milliliters based on 1 mL per kcal [...] MS, RDN, LD documented in this encounter [facility] 07-19-2023 Note [facility] 07-19-2023 History of Present illness Narrative PATIENT NAME: Trinity Perry [facility] NO.: [id number] ATTENDING PHYSICIAN: Grace Bess MD DATE OF [...] lymph nodes. 2. NGS Tissue Based: KRAS [id number], EGFR amplified and RAC 1 Amplified , [...] covered stent 4. CT 01/2022- Recurrence. 5. Eldred and Abraxane 03/16/2022-05/11/2022 ( elected to stop chemo). 6. Resumed Eldred and Abraxane 11/23/2022- 12/14/2022- Stopped due to poor tolerance 7. Restarted Eldred and Abraxane dose reduced, 2 week on [...] Range Status 07/19/2023 7.7 % Final Abs [place] Date Value Ref Range Status 07/19/2023 0.46 [...] rising CA 19-9 and elected to restart Eldred and Abraxane 11/23/2022. However, he had a very poor tolerance of therapy and has had declinind QOL. Therapy was held at that time 12/14/2022. Discussed the current status and rising CA 199 and options of no therapy, repeat chemo with dose modifications and or Xeloda. He wants to restart Eldred and Abraxane, which he was on 02/01/2023 and dose reduced and have a 2 week on and 2 week off schedule. Slight delay due to Thanksgiving and URI, his neuropathy is worst and the Abraxane was stopped and continued Eldred. CT 04/2023 with progressive disease. We had [...] not hesitate to contact Dr. Bess at [phone]. Yordy Moncada APRN.[facility] Hematology/Medical Oncology [facility] CC: Giovanni Hamlin MD I spent a total of 30 minutes on the date of the service which included preparing to see the patient, gxhj-rj-cvso patient care, completing clinical documentation, obtaining and/or reviewing separately obtained history, performing a medically appropriate examination, counseling and educating the patient/family/caregiver, ordering medications, tests, or procedures, independently interpreting results (not separately reported), and communicating results to the patient/family/caregiver. documented in this encounter [facility] 07-05-2023 Note [facility] 07-05-2023 History of Present illness Narrative PATIENT NAME: Trinity Prery [employer] NO.: [id number] ATTENDING PHYSICIAN: Grace Bess MD DATE OF [...] lymph nodes. 2. NGS Tissue Based: KRAS [id number], EGFR amplified and RAC 1 Amplified , [...] covered stent 4. CT 01/2022- Recurrence. 5. Eldred and Abraxane 03/16/2022-05/11/2022 ( elected to stop chemo). 6. Resumed Eldred and Abraxane 11/23/2022- 12/14/2022- Stopped due to poor tolerance 7. Restarted Eldred and Abraxane dose reduced, 2 week on [...] polyneuropathy, without long-term current use of insulin ([facility]) 06/07/2023 Gastric outlet obstruction Obstructive [...] Range Status 07/05/2023 6.9 % Final Abs [place] Date Value Ref Range Status 07/05/2023 0.41 [...] rising CA 19-9 and elected to restart Eldred and Abraxane 11/23/2022. However, he had a very poor tolerance of therapy and has had declinind QOL. Therapy was held at that time 12/14/2022. Discussed the current status and rising CA 199 and options of no therapy, repeat chemo with dose modifications and or Xeloda. He wants to restart Eldred and Abraxane, which he was on 02/01/2023 and dose reduced and have a 2 week on and 2 week off schedule. Slight delay due to Thanksgiving and URI, his neuropathy is worst and the Abraxane was stopped and continued Eldred. CT 04/2023 with progressive disease. We had [...] not hesitate to contact Dr. Bess at [phone]. Yordy Moncada APRN.[facility] Hematology/Medical Oncology [facility] CC: Giovanni Hamlin MD I spent a total of 30 minutes on the date of the service which included preparing to see the patient, pfmr-gn-[id number] patient care, completing clinical documentation, obtaining and/or reviewing separately obtained history, performing a medically appropriate examination, counseling and educating the patient/family/caregiver, ordering medications, tests, or procedures, independently interpreting results (not separately reported), and communicating results to the patient/family/caregiver. documented in this encounter [facility] 06-23-2023 Miscellaneous Notes Pt's calls requesting tumor marker results. Notified her that they were not drawn at his visit on Monday, and are ordered for next time. Josephine Salomon RN documented in this encounter [facility] 06-21-2023 Note [facility] 06-21-2023 Note [facility] 06-07-2023 Note [facility] 06-07-2023 Note [facility] 06-07-2023 Note [facility] 05-24-2023 Note [facility] 05-18-2023 History of Present illness Narrative Radiology [...] port scanned 03/02/2022-NS documented in this encounter [facility] 05-18-2023 Note [facility] 05-18-2023 Note [facility] 05-12-2023 Note [facility] 05-08-2023 Telephone encounter Note Please order Cre for upcoming CT-pt on nephrotoxic chemo Thank You! Vaishali Marie RN [facility] 05-08-2023 Miscellaneous Notes Please order Cre for upcoming CT-pt on nephrotoxic chemo Thank You! Vaishali Marie RN documented in this encounter [facility] 05-05-2023 Note HNO ID: [id number] Author: Daja Carnes RN Service: ? 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 Daja Carnes RN [facility] 05-05-2023 History of Present illness Narrative It was confirmed with to hold abraxane today due to worsening neuropathy. Daja Carnes RN documented in this encounter [facility] 05-05-2023 Note [facility] 05-05-2023 History of Present illness Narrative PATIENT NAME: Trinity Perry [employer] NO.: [id number] ATTENDING PHYSICIAN: Grace Bess MD DATE OF [...] lymph nodes. 2. NGS Tissue Based: KRAS [id number], EGFR amplified and RAC 1 Amplified , [...] covered stent 4. CT 01/2022- recurrence 5. Eldred and Abraxane 03/16/2022-05/11/2022 ( elected to stop chemo) 6. Resumed Eldred and Abraxane 11/23/2022- 12/14/2022- Stopped due to poor tolerance 7. Restarted Eldred and Abraxane dose reduced, 2 week on [...] Range Status 05/05/2023 7.7 % Final Abs [place] Date Value Ref Range Status 05/05/2023 1.12 [...] SYNOPTIC REPORT OF MANJARREZ PATHOLOGIC FINDINGS KARLEYLE, GALLBLADER, OMENTUM: PANCREAS EXOCRINE WORKSHEET Specimen: Head [...] rising CA 19-9 and elected to restart Eldred and Abraxane 11/23/2022. However, he had a very poor tolerance of therapy and has had declinind QOL. Therapy was held at that time 12/14/2022 Discussed the current status and rising CA 199 and options of no therapy, repeat chemo with dose modifications and or Xeloda. He wants to restart Eldred and Abraxane, which he was on 02/01/2023 [...] do not hesitate to contact me at [phone]. Grace Bess MD Hematology/Medical Oncology [facility] CC: Giovanni Hamlin MD I spent a total of 30 minutes on the date of the service which included preparing to see the patient, cmkl-gz-[id number] patient care, completing clinical documentation, obtaining and/or reviewing separately obtained history, performing a medically appropriate examination, counseling and educating the patient/family/caregiver, ordering medications, tests, or procedures, and independently interpreting results (not separately reported). documented in this encounter [facility] 04-07-2023 Miscellaneous Notes Pt notified of results. Josephine Salomon RN ----- Message from Grace Bess MD sent at 04/07/2023 9:10 AM EST ----- Please call with tumor marker. documented in this encounter [facility] 04-05-2023 Miscellaneous Notes Addended by: YORDY MONCADA on: 04/05/2023 03:25 PM Modules accepted: Orders documented in this encounter [facility] 04-05-2023 History of Present illness Narrative [facility] [employer] NO[facility] [id number] ATTENDING PHYSICIAN: Grace Bess MD DATE OF [...] lymph nodes. 2. NGS Tissue Based: KRAS [id number], EGFR amplified and RAC 1 Amplified , [...] covered stent. 4. CT 01/2022- Recurrence. 5. Eldred and Abraxane 03/16/2022-05/11/2022 ( elected to stop chemo) 6. Resumed Eldred and Abraxane 11/23/2022- 12/14/2022- Stopped due to poor tolerance 7. Restarted Eldred and Abraxane dose reduced, 2 week on [...] Range Status 04/05/2023 2.0 % Final Abs [place] Date Value Ref Range Status 04/05/2023 0.21 [...] SYNOPTIC REPORT OF MANJARREZ PATHOLOGIC FINDINGS KARLEYLE, GALLBLADER, OMENTUM: PANCREAS EXOCRINE WORKSHEET Specimen: Head [...] rising CA 19-9 and elected to restart Eldred and Abraxane 11/23/2022. However, he had a very poor tolerance of therapy and has had declined QOL. Therapy was held at that time 12/14/2022. CA 199 began to rise and options of no therapy, repeat chemo with dose modifications and/or Xeloda. He wanted to restart Eldred and Abraxane, which he was on 02/01/2023 [...] chemotherapy and will monitor closely. Yordy Moncada APRN.[employer]PERATOR CC: Giovanni Hamlin MD I spent a total of 30 minutes on the date of the service which included preparing to see the patient, ecqg-ry-ware patient care, completing clinical documentation, obtaining and/or reviewing separately obtained history, performing a medically appropriate examination, counseling and educating the patient/family/caregiver, ordering medications, tests, or procedures, independently interpreting results (not separately reported), and communicating results to the patient/family/caregiver. documented in this encounter [facility] 04-04-2023 Miscellaneous Notes Pt notified of results. Josephine Salomon RN Please call with ca19-9 results documented in this encounter [facility] 03-30-2023 History of Present illness Narrative PATIENT NAME: Trinity Gupta [facility] NO.: [id number] ATTENDING PHYSICIAN: Grace Bess MD DATE OF [...] lymph nodes. 2. NGS Tissue Based: KRAS [id number], EGFR amplified and RAC 1 Amplified , [...] covered stent 4. CT 01/2022- recurrence 5. Eldred and Abraxane 03/16/2022-05/11/2022 ( elected to stop chemo) 6. Resumed Eldred and Abraxane 11/23/2022- 12/14/2022- Stopped due to poor tolerance 7. Restarted Eldred and Abraxane dose reduced, 2 week on [...] Range Status 03/30/2023 10.4 % Final Abs [place] Date Value Ref Range Status 03/30/2023 0.82 [...] rising CA 19-9 and elected to restart Eldred and Abraxane 11/23/2022. However, he had a very poor tolerance of therapy and has had declined QOL. Therapy was held at that time 12/14/2022 CA 199 began to rise and options of no therapy, repeat chemo with dose modifications and/or Xeloda. He wanted to restart Eldred and Abraxane, which he was on 02/01/2023 [...] Giovanni Hamlin MD documented in this encounter [facility] 03-08-2023 History of Present illness Narrative PATIENT NAME: Trinity Perry [employer] NO.: [id number] ATTENDING PHYSICIAN: Grace Bess MD DATE OF [...] lymph nodes. 2. NGS Tissue Based: KRAS [id number], EGFR amplified and RAC 1 Amplified , [...] covered stent 4. CT 01/2022- recurrence 5. Eldred and Abraxane 03/16/2022-05/11/2022 ( elected to stop chemo) 6. Resumed Eldred and Abraxane 11/23/2022- 12/14/2022- Stopped due to poor tolerance 7. Restarted Eldred and Abraxane dose reduced, 2 week on [...] Range Status 03/01/2023 11.6 % Final Abs [place] Date Value Ref Range Status 03/01/2023 0.94 [...] rising CA 19-9 and elected to restart Eldred and Abraxane 11/23/2022. However, he had a very poor tolerance of therapy and has had declinind QOL. Therapy was held at that time 12/14/2022 Discussed the current status and rising CA 199 and options of no therapy, repeat chemo with dose modifications and or Xeloda. He wants to restart Eldred and Abraxane, which he was on 02/01/2023 [...] do not hesitate to contact me at [phone]. Grace Bess MD Hematology/Medical Oncology [facility] CC: Giovanni Hamlin MD I spent a total of 30 minutes on the date of the service which included preparing to see the patient, fras-rt-cipf patient care, completing clinical documentation, obtaining and/or reviewing separately obtained history, performing a medically appropriate examination, counseling and educating the patient/family/caregiver, ordering medications, tests, or procedures, and independently interpreting results (not separately reported). documented in this encounter [facility] 03-02-2023 Miscellaneous Notes Pt notified of results and is agreeable to this. Josephine Salomon RN ----- Message from Grace Bess MD sent at 03/02/2023 1:57 PM EDT ----- Tell him that his Tumor marker is stable and if he is ok we will continue the chemo for now documented in this encounter [facility] 02-08-2023 History of Present illness Narrative Dex discontinued from tx plan per due to elevated blood sugars. Florinda Rincon RN documented in this encounter [facility] 02-08-2023 History of Present illness Narrative PATIENT NAME: Trinity Gupta [facility] NO.: [id number] ATTENDING PHYSICIAN: Grace Bess MD DATE OF [...] lymph nodes. 2. NGS Tissue Based: KRAS [id number], EGFR amplified and RAC 1 Amplified , [...] stent . 4. CT 01/2022- Recurrence. 5. Eldred and Abraxane 03/16/2022-05/11/2022. (Elected to stop chemo) 6. Resumed Eldred and Abraxane 11/23/2022- 12/14/2022- Stopped due to poor tolerance. 7. Restarted Eldred and Abraxane dose reduced, 2 week on [...] Range Status 02/08/2023 4.3 % Final Abs [place] Date Value Ref Range Status 02/08/2023 0.22 [...] rising CA 19-9 and elected to restart Eldred and Abraxane 11/23/2022. However, he had a very poor tolerance of therapy and has had declinind QOL. Therapy was held at that time 12/14/2022. Restarted Eldred and Abraxane 02/01/2023. Will continue with dose [...] hesitate to contact Grace Bess MD at [phone]. Yordy Moncada APRN.CNP Hematology/Medical Oncology [facility] CC: Giovanni Hamlin MD I spent a total of 30 minutes on the date of the service which included preparing to see the patient, frsf-rm-jugf patient care, completing clinical documentation, obtaining and/or reviewing separately obtained history, performing a medically appropriate examination, counseling and educating the patient/family/caregiver, ordering medications, tests, or procedures, independently interpreting results (not separately reported), and communicating results to the patient/family/caregiver. documented in this encounter [facility] 02-01-2023 Miscellaneous Notes He likely has [...] Elisha Reece RN documented in this encounter [facility] 02-01-2023 History of Present illness Narrative PATIENT NAME: Trinity Perry [facility] NO.: [id number] ATTENDING PHYSICIAN: Grace Bess MD DATE OF [...] lymph nodes. 2. NGS Tissue Based: KRAS [id number], EGFR amplified and RAC 1 Amplified , [...] covered stent 4. CT 01/2022- recurrence 5. Eldred and Abraxane 03/16/2022-05/11/2022 ( elected to stop chemo) 6. Resumed Eldred and Abraxane 11/23/2022- 12/14/2022- Stopped due to poor tolerance 7. Restarted Eldred and Abraxane dose reduced, 2 week on [...] Range Status 02/01/2023 6.1 % Final Abs [place] Date Value Ref Range Status 02/01/2023 0.70 [...] rising CA 19-9 and elected to restart Eldred and Abraxane 11/23/2022. However, he had a very poor tolerance of therapy and has had declinind QOL. Therapy was held at that time 12/14/2022 Discussed the current status and rising CA 199 and options of no therapy, repeat chemo with dose modifications and Xeloda. He wants to restart Eldred and Abraxane. Will dose reduce and have a 2 week on and 2 week off schedule Continue nutrition follow up Anemia- Improved off chemo DM- Follow endocrine See back next week for day 8 Thank you for the kind referral. If there are any questions and or concerns please do not hesitate to contact me at [phone]. Grace Bess MD Hematology/Medical Oncology [facility] CC: Giovanni Hamlin MD I spent a total of 30 minutes on the date of the service which included preparing to see the patient, iioc-wh-piih patient care, completing clinical documentation, obtaining and/or reviewing separately obtained history, performing a medically appropriate examination, counseling and educating the patient/family/caregiver, ordering medications, tests, or procedures, and independently interpreting results (not separately reported). documented in this encounter [facility] 01-04-2023 History of Present illness Narrative PATIENT NAME: Trinity Perry [employer] NO.: [id number] ATTENDING PHYSICIAN: Grace Bess MD DATE OF [...] lymph nodes. 2. NGS Tissue Based: KRAS [id number], EGFR amplified and RAC 1 Amplified , [...] covered stent 4. CT 01/2022- recurrence 5. Eldred and Abraxane 03/16/2022-05/11/2022 ( elected to stop chemo) 6. Resumed Eldred and Abraxane 11/23/2022- 12/14/2022- Stopped due to [...] Range Status 01/04/2023 8.8 % Final Abs [place] Date Value Ref Range Status 01/04/2023 0.87 [...] rising CA 19-9 and elected to restart Eldred and Abraxane 11/23/2022. However, he has very [...] do not hesitate to contact me at [phone]. Grace Bess MD Hematology/Medical Oncology [facility] CC: Giovanni Hamlin MD I spent a total of 30 minutes on the date of the service which included preparing to see the patient, [id number]-uc-apmw patient care, completing clinical documentation, obtaining and/or reviewing separately obtained history, performing a medically appropriate examination, counseling and educating the patient/family/caregiver, ordering medications, tests, or procedures, and independently interpreting results (not separately reported). documented in this encounter [facility] 12-21-2022 Miscellaneous Notes Pt's notified of [...] received from riley Choi at [facility] stating pt's CT is negative for PE. Shows subtle nodular tree-in-bud opacities predominantly in the right upper lobe concerning for infectious bronchiolitis. Josephine Salomon RN documented in this encounter [facility] 12-21-2022 History of Present illness Narrative Left sutures to forehead removed as ordered per Jacoby Wetzel PA-C, patient tolerated well, S/S of infections reinforced patient and spouse verbalizes understanding Lashaun Riojas RN documented in this encounter [facility] 12-21-2022 History of Present illness Narrative PATIENT NAME: Trinity Perry [employer] NO.: [id number] ATTENDING PHYSICIAN: Grace Bess MD DATE OF [...] lymph nodes. 2. NGS Tissue Based: KRAS [id number], EGFR amplified and RAC 1 Amplified , [...] covered stent 4. CT 01/2022- recurrence 5. Eldred and Abraxane 03/16/2022-05/11/2022 ( elected to stop chemo) 6. Resumed Eldred and Abraxane 11/23/2022 HPI: Alfred returns for day 8 of treatment. He complains of weakness, fatigue and LINDSEY. He feel while at [facility] 12/15/22 and went to [facility] ER. Ct head and cervical spine [...] Range Status 12/21/2022 8.5 % Final Abs [place] Date Value Ref Range Status 12/21/2022 0.32 [...] rising CA 19-9 and elected to restart Eldred and Abraxane 11/23/2022. Eldred dose was decreased with cycle 2 day [...] Giovanni Hamlin MD documented in this encounter [facility] 12-15-2022 Hospital Discharge instructions Additional Instructions Tetanus was updated today in emergency department Sutures should be removed in 5 to 7 days Apply ice to affected area Neosporin daily Sunscreen after healed to reduce scarring For signs of infection redness, swelling, purulent drainage follow-up immediately Follow-up with your doctor for recheck in the next 3 to 5 days [facility] Work Phone: 12-05-2022 History of Present illness Narrative PATIENT NAME: Trinity Perry [employer] NO.: [id number] ATTENDING PHYSICIAN: Grace Bess MD DATE OF [...] lymph nodes. 2. NGS Tissue Based: KRAS [id number], EGFR amplified and RAC 1 Amplified , [...] covered stent 4. CT 01/2022- recurrence 5. Eldred and Abraxane 03/16/2022-05/11/2022 ( elected to stop chemo) 6. Resumed Eldred and Abraxane 11/23/2022 HPI: Trinity returns for [...] Range Status 11/30/2022 4.3 % Final Abs [place] Date Value Ref Range Status 11/30/2022 0.26 [...] rising CA 19-9 and elected to restart Eldred and Abraxane 11/23/2022. Tolerating well, however, is having significant anemia, likely from chemotherapy. Will type and cross and transfuse 1 unit of PRBCs. He will return in 1 week for the next cycle of chemotherapy, and will like need dose reductions. Continue nutrition follow up DM- Follow endocrine Greta Wetzel PA-C CC: Giovanni Hamlin MD documented in this encounter [facility] 11-30-2022 History of Present illness Narrative PATIENT NAME: Trinity Perry [employer] NO.: [id number] ATTENDING PHYSICIAN: Grace Bess MD DATE OF [...] lymph nodes. 2. NGS Tissue Based: KRAS [id number], EGFR amplified and RAC 1 Amplified , [...] covered stent 4. CT 01/2022- recurrence 5. Eldred and Abraxane 03/16/2022-05/11/2022 ( elected to stop chemo) 6. Resumed Eldred and Abraxane 11/23/2022 HPI: Trinity Perry is [...] Range Status 11/30/2022 4.3 % Final Abs [place] Date Value Ref Range Status 11/30/2022 0.26 [...] rising CA 19-9 and elected to restart Eldred and Abraxane 11/23/2022 Continue nutrition follow up Anemia- Will repeat CBC next week as he is more anemic with the start of the chemo DM- Follow endocrine RTC next week for cbc check Thank you for the kind referral. If there are any questions and or concerns please do not hesitate to contact me at [phone]. Grace Bess MD Hematology/Medical Oncology [facility] CC: Giovanni Hamlin MD I spent a total of 30 minutes on the date of the service which included preparing to see the patient, uloq-gz-ufxb patient care, completing clinical documentation, obtaining and/or reviewing separately obtained history, performing a medically appropriate examination, counseling and educating the patient/family/caregiver, ordering medications, tests, or procedures, and independently interpreting results (not separately reported). documented in this encounter [facility] 11-28-[address] Keyes [...] appt Thank you documented in this encounter [facility] 11-23-2022 History of Present illness Narrative PATIENT NAME: Trinity Gupta [facility] NO.: [id number] ATTENDING PHYSICIAN: Grace Bess MD DATE OF [...] lymph nodes. 2. NGS Tissue Based: KRAS [id number], EGFR amplified and RAC 1 Amplified , [...] covered stent 4. CT 01/2022- recurrence 5. 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 Today he complains of complete exhaustion . [...] Range Status 11/23/2022 7.1 % Final Abs [place] Date Value Ref Range Status 11/23/2022 0.77 [...] Giovanni Hamlin MD documented in this encounter [facility] 11-10-2022 Miscellaneous Notes Spoke with pt's [...] Josephine Salomon RN documented in this encounter [facility] 11-10-2022 History of Present illness Narrative PATIENT NAME: Trinity Perry [employer] NO.: [id number] ATTENDING PHYSICIAN: Grace Bess MD DATE OF [...] lymph nodes. 2. NGS Tissue Based: KRAS [id number], EGFR amplified and RAC 1 Amplified , [...] covered stent 4. CT 01/2022- recurrence 5. Eldred and Abraxane 03/16/2022-05/11/2022 ( elected to stop [...] Range Status 09/29/2022 8.0 % Final Abs [place] Date Value Ref Range Status 09/29/2022 0.68 [...] resuming theroay again and they agreed Restart Eldred and Abraxane again next week. Continue nutrition follow up Anemia- Monitor- Improved Resume chemo next week Thank you for the kind referral. If there are any questions and or concerns please do not hesitate to contact me at [phone]. Grace Bess MD Hematology/Medical Oncology [facility] CC: Giovanni Hamlin MD I spent a total of 30 minutes on the date of the service which included preparing to see the patient, nqtv-ne-srml patient care, completing clinical documentation, obtaining and/or reviewing separately obtained history, performing a medically appropriate examination, counseling and educating the patient/family/caregiver, ordering medications, tests, or procedures, and independently interpreting results (not separately reported). documented in this encounter [facility] 11-07-2022 Miscellaneous Notes Pt notified of results. Josephine Salomon RN ----- Message from Grace Bess MD sent at 11/06/2022 11:30 AM EDT ----- Call with stable CT scan and no evidence of progressive disease documented in this encounter [facility] 11-03-2022 History of Present illness Narrative Summary: IRB# [id number] Informed Consent CASE [id number] (IRB [id number]): Tissue [...] Clinical Research Nurse documented in this encounter [facility] 11-03-2022 History of Present illness Narrative [...] Site disposition Discontinued power port accessed by hemonc SIGNED BY: RT Cornelio(R) November 03, 2022 10:36 AM documented in this encounter [facility] 09-29-2022 History of Present illness Narrative PATIENT NAME: Trinity Perry [employer] NO.: [id number] ATTENDING PHYSICIAN: Grace Bess MD DATE OF [...] lymph nodes. 2. NGS Tissue Based: KRAS [id number], EGFR amplified and RAC 1 Amplified , [...] covered stent 4. CT 01/2022- recurrence 5. Eldred and Abraxane 03/16/2022-05/11/2022 ( elected to stop [...] Range Status 08/02/2022 8.6 % Final Abs [place] Date Value Ref Range Status 08/02/2022 0.81 [...] do not hesitate to contact me at [phone]. Grace Bess MD Hematology/Medical Oncology [facility] CC: Giovanni Hamlin MD I spent a total of 30 minutes on the date of the service which included preparing to see the patient, guee-ij-xeqs patient care, completing clinical documentation, obtaining and/or reviewing separately obtained history, performing a medically appropriate examination, counseling and educating the patient/family/caregiver, ordering medications, tests, or procedures, and independently interpreting results (not separately reported). documented in this encounter [facility] 08-02-2022 History of Present illness Narrative PATIENT NAME: Trinity Perry [employer] NO.: [id number] ATTENDING PHYSICIAN: Grace Bess MD DATE OF [...] lymph nodes. 2. NGS Tissue Based: KRAS [id number], EGFR amplified and RAC 1 Amplified , [...] covered stent 4. CT 01/2022- recurrence 5. Eldred and Abraxane 03/16/2022-05/11/2022 ( elected to stop [...] Range Status 08/02/2022 8.6 % Final Abs [place] Date Value Ref Range Status 08/02/2022 0.81 [...] do not hesitate to contact me at [phone]. Grace Bess MD Hematology/Medical Oncology [facility] CC: Giovanni Hamlin MD I spent a total of 30 minutes on the date of the service which included preparing to see the patient, rktr-ev-kvzh patient care, completing clinical documentation, obtaining and/or reviewing separately obtained history, performing a medically appropriate examination, counseling and educating the patient/family/caregiver, ordering medications, tests, or procedures, and independently interpreting results (not separately reported). documented in this encounter [facility] 07-27-2022 History of Present illness Narrative [...] TIME: 11:36 AM documented in this encounter [facility] 06-29-2022 History of Present illness Narrative PATIENT NAME: Trinity Perry [employer] NO.: [id number] ATTENDING PHYSICIAN: Grace Bess MD DATE OF [...] lymph nodes. 2. NGS Tissue Based: KRAS [id number], EGFR amplified and RAC 1 Amplified , [...] covered stent 4. CT 01/2022- recurrence 5. Eldred and Abraxane 03/16/2022 HPI: Trinity Perry is [...] 06/29/2022 2.15 1.00 - 4.00 k/uL Final [place]% Date Value Ref Range Status 06/29/2022 10.2 % Final Abs [place] Date Value Ref Range Status 06/29/2022 1.05 [...] do not hesitate to contact me at [phone]. Grace Bess MD Hematology/Medical Oncology [facility] CC: Giovanni Hamlin MD I spent a total of 30 minutes on the date of the service which included preparing to see the patient, fmgi-ug-uoqs patient care, completing clinical documentation, obtaining and/or reviewing separately obtained history, performing a medically appropriate examination, counseling and educating the patient/family/caregiver, ordering medications, tests, or procedures, and independently interpreting results (not separately reported). documented in this encounter [facility] 05-25-2022 History of Present illness Narrative [...] port scanned 03/02/2022-NS documented in this encounter [facility] 05-11-2022 Miscellaneous Notes Addended by: GRACE BESS on: 05/11/2022 09:59 AM Modules accepted: Orders documented in this encounter [facility] 05-11-2022 History of Present illness Narrative PATIENT NAME: Trinity Perry [employer] NO.: [id number] ATTENDING PHYSICIAN: Grace Bess MD DATE OF [...] lymph nodes. 2. NGS Tissue Based: KRAS [id number], EGFR amplified and RAC 1 Amplified , [...] covered stent 4. CT 01/2022- recurrence 5. Eldred and Abraxane 03/16/2022 HPI: Trinity Perry is [...] 05/11/2022 1.49 1.00 - 4.00 k/uL Final [place]% Date Value Ref Range Status 05/11/2022 12.7 % Final Abs [place] Date Value Ref Range Status 05/11/2022 0.79 [...] high risk. Here for cycle 4 and Eldred and Abraxane and will skip next week and plan imaging and see back in 3 weeks Continue nutrition follow up Anemia- Monitor. Thank you for the kind referral. If there are any questions and or concerns please do not hesitate to contact me at [phone]. Grace Bess MD Hematology/Medical Oncology [facility] CC: Giovanni Hamlin MD I spent a total of 30 minutes on the date of the service which included preparing to see the patient, cwvm-er-dxyv patient care, completing clinical documentation, obtaining and/or reviewing separately obtained history, performing a medically appropriate examination, counseling and educating the patient/family/caregiver, ordering medications, tests, or procedures, and independently interpreting results (not separately reported). documented in this encounter [facility] 04-27-2022 History of Present illness Narrative PATIENT NAME: Trinity Perry [facility] NO.: [id number] ATTENDING PHYSICIAN: Grace Bess MD DATE OF [...] lymph nodes. 2. NGS Tissue Based: KRAS [id number], EGFR amplified and RAC 1 Amplified , [...] hesitate to contact Grace Bess MD at [phone]. Yordy Moncada APRN.[facility] Hematology/Medical Oncology [facility] CC: Giovanni Hamlin MD documented in this encounter [facility] 04-20-2022 Miscellaneous Notes Call received from [email or web address] needing clarification on gabapentin script. Script is written to be taken daily for a quantity of 30, but states for 14 days on the script. Discussed with Dr Bess and he would like this for a full 30 days. Orders given to pharmacist without difficulty. oJsephine Salomon RN documented in this encounter [facility] 04-06-2022 History of Present illness Narrative PATIENT NAME: Trinity Perry [facility] NO.: [id number] ATTENDING PHYSICIAN: Grace Bess MD DATE OF [...] 03/30/2022 1.48 1.00 - 4.00 k/uL Final [place]% Date Value Ref Range Status 03/30/2022 8.7 % Final Abs [place] Date Value Ref Range Status 03/30/2022 0.56 [...] very high risk. He was started on Eldred and abraxane 03/09/2022 with good tolerance so [...] Giovanni Hamlin MD documented in this encounter [facility] 04-05-2022 Miscellaneous Notes Pt has reviewed his results on my chart Josephine Salomon RN ----- Message from Greta Wetzel PA-C sent at 03/31/2022 10:46 AM EST ----- Please call with [id number] documented in this encounter [facility] 03-30-2022 Miscellaneous Notes Call received from Candy, pharmacist at [email or web address], regarding gabapentin script. Discussed with Greta who states pt will be taking it for 30 days now because it's working well. Pharmacist notified of this and she will remove the portion of the sig that says for 14 days. Josephine Salomon RN documented in this encounter [facility] 03-30-2022 History of Present illness Narrative PATIENT NAME: Trinity Perry [employer] NO.: [id number] ATTENDING PHYSICIAN: Grace Bess MD DATE OF [...] 03/30/2022 1.48 1.00 - 4.00 k/uL Final [place]% Date Value Ref Range Status 03/30/2022 8.7 % Final Abs [place] Date Value Ref Range Status 03/30/2022 0.56 [...] SYNOPTIC REPORT OF MANJARREZ PATHOLOGIC FINDINGS HAMIPPAUGUST, TASHA, OMENTUM: PANCREAS EXOCRINE WORKSHEET Specimen: Head [...] very high risk. He was started on Eldred and abraxane 03/09/2022 with good tolerance so far. Labs reviewed and stable. Proceed with cycle 2 day 1 today and return in 1 week for day 8. 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 Stable today, monitor Guardant 360 and tissue based NGS- still pending Medical Cancer genetics- germline testing negative Continue nutrition follow up Greta Wetzel PA-C CC: Giovanni Hamlin MD documented in this encounter [facility] 03-28-2022 Miscellaneous Notes Hitesh Brady Results left on patient voicemail. Trinity Perry's Multi-Cancer panel plus preliminary evidence pancreatic cancer and pancreatitis genes through [facility] was negative for a pathogenic variant. Please see [facility] [employer] message for further discussion. Jose Antonio Emerson MS, [facility]ON[facility] Licensed, Certified Genetic Counselor documented in this encounter [facility] 03-17-2022 Miscellaneous Notes Pt's notified of negative stool results. Josephine Salomon RN documented in this encounter [facility] 03-16-2022 History of Present illness Narrative [facility] Consultation Note Genetic Counselor: Jose Antonio Emerson MS, [facility] Patient: Trinity Perry Patient Name and confirmed at initiation of visit. Appointment occurred via audiovisual communication through [facility] Virtual Visit. HIGH LEVEL SUMMARY: The patient's [...] appropriate standard National Comprehensive Cancer Network and [employer] Cancer Society guidelines, with consideration of their [...] PALB2, PDGFRA, PHOX2B, PMS2, POLD1, POLE, POT1, PHXDH3Y, PTCH1, PTEN, RAD50, RAD51C, RAD51D, RB1, RECQL4, RET, RUNX1, SDHA, SDHAF2, SDHB, SDHC, SDHD, SMAD4, SMARCA4, SMARCB1, SMARCE1, STK11, SUFU, TERC, TERT, UZBK268, TP53, TSC1, TSC2, VHL, WRN, and WT1. [...] greater than 50% of which was spent swqa-il-haot counseling. This plan is being carried out under the oversight of Dr. Marina Aaron. This note will also be sent to the referring provider via the electronic medical record. Jose Antonio Emerson MS, [facility] Licensed, Certified Genetic Counselor EPIC CC: Dr. Grace Aaron documented in this encounter [facility] 03-16-2022 History of Present illness Narrative Pt c/o neuropathy becoming more aggravating. Bilateral hands up to forearms. This is not new since starting treatment. This was discussed with Akshat Prakash at treatment chairside and he will be given a trial of neurontin to take prior to bedtime. No change in doses required. documented in this encounter [facility] 03-16-2022 Miscellaneous Notes Addended by: GRETA WETZEL on: 03/16/2022 11:21 AM Modules accepted: Orders documented in this encounter [facility] 03-16-2022 History of Present illness Narrative [...] MS, RDJo, LD documented in this encounter [facility] 03-16-2022 Nurse Note Patient states that he has numbness in both hands and arms, he thinks it may be arthritits. Stomach is also queezy . He does states he feels short of breath, also has had some bleeding with brushing teeth and blowing nose. Janet Dotson MA documented in this encounter [facility] 03-16-2022 History of Present illness Narrative PATIENT NAME: Trinity Perry [employer] NO.: [id number] ATTENDING PHYSICIAN: Grace Bess MD DATE OF [...] 03/16/2022 1.38 1.00 - 4.00 k/uL Final [place]% Date Value Ref Range Status 03/16/2022 7.7 % Final Abs [place] Date Value Ref Range Status 03/16/2022 0.28 [...] very high risk. He was started on Eldred and abraxane 03/09/2022 with good tolerance so [...] Giovanni Hamlin MD documented in this encounter [facility] 03-14-2022 Miscellaneous Notes CYCLE 1/DAY 1 [...] Josephine Salomon RN documented in this encounter [facility] 03-10-2022 Miscellaneous Notes Pt's called international first officer physician last night with questions regarding [...] Josephine Salomon RN documented in this encounter [facility] 03-09-2022 History of Present illness Narrative [...] 1 step-daughter and 1 step son care associate arrangements needed: Na Grandchild(sherman): 3 Home Health Provider: No Community Services: No Candy Identified: No Hinduism/Spirituality: Spiritual Are these practices or beliefs that may affect or influence treatment? Unknown EMPLOYMENT/FINANCIAL/HEALTH INSURANCE: Employment: Retired Income source: Social Security Insurance: Medicare with co-insurance Prescription coverage: Yes Is the patient appropriate for referral to [facility] COBRA Assistance program? No Financial Distress: No Gattman: No FOOD INSECURITY Within the past year, [...] EPIC: No Health Care Durable Power of Remote Sensing Technician: Yes Scanned into EPIC: No Guardianship: NA [...] male with pancreatic cancer. Patient lives in [place], [place] with his Brittni Connor . Patient [...] in: DAVE Santos documented in this encounter [facility] 03-09-2022 Miscellaneous Notes Call received from pt's stating they are at [facility] in [place] waiting for pt's nausea medications. Call placed to our pharmacy and scripts will be transferred to [facility] in [place] shortly. Josephine Salomon RN documented in this encounter [facility] 03-09-2022 Miscellaneous Notes Patient assessed today. [...] cup from daughter (nurse in oncology in [place]) and will refrigerate specimen until his appointment [...] Pt was in for education today for gemzar abraxane for pancreatic cancer. Pt states he's [...] Josephine Salomon RN documented in this encounter [facility] 03-09-2022 Miscellaneous Notes 1st report of treatment-Benefit investigation complete. Patient is active with Medicare, LOC 80%, $233 deductible has $0 remaining. He carries Plan G [employer] supplement which will cover the 20% allowable balances. Estimate shows patient financial responsibility is $0 for each treatment in 2021. Called the patient to discuss, left a voicemail to return call. documented in this encounter [facility] 03-09-2022 History of Present illness Narrative Oncology Nutrition Therapy Initial Assessment RECOMMENDED MALNUTRITION DIAGNOSIS: NO MALNUTRITION IDENTIFIED Nutrition Diagnosis: Food and Nutrition related knowledge deficit related to lack of prior nutrition-related education as evidenced by verbalizes inaccurate or incomplete information OR no prior knowledge of need for foul-glw-cakfwepbg related recommendations Nutrition Intervention: -aim for small [...] 1.0-1.3 g/kg Dosing weight Estimated fluid needs: ~8030-7037 milliliters based on 1 mL per kcal [...] MS, RDN, LD documented in this encounter [facility] 03-09-2022 History of Present illness Narrative PATIENT NAME: Trinity Perry [facility] NO.: [id number] ATTENDING PHYSICIAN: Grace Bess MD DATE OF [...] 03/07/2022 1.76 1.00 - 4.00 k/uL Final [place]% Date Value Ref Range Status 03/07/2022 6.4 % Final Abs [place] Date Value Ref Range Status 03/07/2022 0.69 [...] very high risk. Patient here to start Eldred and Abraxane. Discussed AE again and he wishes to proceed. Guardant 360 and tissue based NGS- pending Medical Cancer genetics- Appontment pending Continue nutrition follow up See back in 1 week for day 8 Thank you for the kind referral. If there are any questions and or concerns please do not hesitate to contact me at [phone]. Grace Bess MD Hematology/Medical Oncology [facility] CC: Giovanni Hamlin MD I spent a total of 30 minutes on the date of the service which included preparing to see the patient, ojhk-mr-kcgp patient care, completing clinical documentation, obtaining and/or reviewing separately obtained history, performing a medically appropriate examination, counseling and educating the patient/family/caregiver, ordering medications, tests, or procedures, and independently interpreting results (not separately reported). documented in this encounter [facility] 03-07-2022 History of Present illness Narrative [...] Josephine Salomon RN documented in this encounter [facility] 03-07-2022 History of Present illness Narrative [...] port scanned 03/02/2022-NS documented in this encounter [facility] 03-04-2022 Miscellaneous Notes Pt will be in for education Monday. Please sign pending antiemetics for gem/abraxane. Thanks Josephine Salomon RN documented in this encounter [facility] 02-25-2022 Miscellaneous Notes You are scheduled for a Mediport Placement, On 03/02/2022. You are to arrive at 12:30 pm and Report to [facility] for Sedation Cases: [facility] Enter through [facility] entrance. Proceed to [...] if they are not done at a [facility] facility. . Upper Leather Cutter/Transportation: How will you be arriving for your procedure? Private car. You will need a responsible adult to accompany you to and from the procedure. Your catshovel driver is required to stay with you until you are taken into the procedure room. If you have any questions please call [phone] documented in this encounter [facility] 02-22-2022 Miscellaneous Notes Patient's appointments have been cancelled. Marina Macias Images from the original note were not included. Fara Monaco MD You; Isabel Chase; Arabella Morrison RN 1 hour ago (2:55 PM) Yes can cancel Pt notified and is happy to hear this. PSS: please cancel pt's upcoming appointment with Dr Monaco. Thanks Josephine Salomon, LUIS ANTONIO Pt was in the office today and saw Dr Bess. Pt will be starting gem/abraxane on 03/07. Pt asking if there is a need to keep his appointment with Dr Monaco this ? He would like to cancel it if possible. Please advise Thanks, Josephine Salomon RN documented in this encounter [facility] 02-22-2022 Miscellaneous Notes Pt saw Dr Bess this morning and has several questions at checkout regarding treatment. Questions answered and reassurance given. Josephine Salomon RN documented in this encounter [facility] 02-22-2022 History of Present illness Narrative PATIENT NAME: Trinity Perry [employer] NO.: [id number] ATTENDING PHYSICIAN: Grace Bess MD DATE OF [...] 0.55 (L) 1.00 - 4.00 k/uL Final [place]% Date Value Ref Range Status 02/05/2021 4.9 % Final Abs [place] Date Value Ref Range Status 02/05/2021 1.27 [...] need systemic therapy at this time. Discussed Eldred and Abraxane based on the IMPACT trial and also the toxicity, Refer to Port placement Guardant 360 and tissue based NGS Refer to Medical Cancer genetics Refer to Nutrition Chemo teach Start therapy in 2 weeks Thank you for the kind referral. If there are any questions and or concerns please do not hesitate to contact me at [phone]. Grace Bess MD Hematology/Medical Oncology [facility] CC: Giovanni Hamlin MD I spent a total of 55 minutes on the date of the service which included preparing to see the patient, hgip-sn-osih patient care, completing clinical documentation, obtaining and/or reviewing separately obtained history, performing a medically appropriate examination, counseling and educating the patient/family/caregiver, ordering medications, tests, or procedures, and independently interpreting results (not separately reported). documented in this encounter [facility] 02-22-2022 Nurse Note Patient states that [...] Janet Dotson MA documented in this encounter [facility] 02-18-2022 History of Present illness Narrative [...] Fara Monaco MD documented in this encounter [facility] 02-15-2022 History of Present illness Narrative [...] 2022 11:34 AM documented in this encounter [facility] 02-10-[address] Pancreas scheduled [...] come before the winter months. Please call [phone]. documented in this encounter [facility] 10-22-2021 Nurse Note Patient requesting to [...] REFERRAL (RECOMMENDATION): None documented in this encounter [facility] 08-10-[address] 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 Is there any issue with pt having xray? Ph. [phone] Please Advise Sahra Campos) Manager Marketing [employer] documented in this encounter [facility] 03-23-2020 Note [id number] [facility] 03-09-2020 History of Past i llness Narrative Problem Noted Date Resolved Date Sepsis 03/09/2020 03/13/2020 Obesity, Class II, BMI 35-39.9 12/06/2019 1 07/09/2019 documented as of this encounter (statuses as of 08/10/2021) [facility]2020 History of Past illness Narrative* Problem Noted Date Resolved Date Sepsis 03/09/2020 03/13/2020 Obesity, Class II, BMI 35-39.9 12/06/2019 1 07/09/2019 documented as of this encounter (statuses as of 10/23/2021) [facility]2020 History of Past illness Narrative* Problem Noted Date Resolved Date Sepsis 03/09/2020 03/13/2020 Obesity, Class II, BMI 35-39.9 12/06/2019 1 07/09/2019 documented as of this encounter (statuses as of 02/08/2022) [facility]2020 History of Past illness Narrative* Problem Noted Date Resolved Date Sepsis 03/09/2020 03/13/2020 Obesity, Class II, BMI 35-39.9 12/06/2019 1 07/09/2019 documented as of this encounter (statuses as of 02/10/2022) [facility] History of Past illness Narrative* Problem Noted Date Resolved Date Sepsis 03/09/2020 03/13/2020 Obesity, Class II, BMI 35-39.9 12/06/2019 1 07/09/2019 documented as of this encounter (statuses as of 02/18/2022) [facility]2020 History of Past illness Narrative* Problem Noted Date Resolved Date Sepsis 03/09/2020 03/13/2020 Obesity, Class II, BMI 35-39.9 12/06/2019 1 07/09/2019 documented as of this encounter (statuses as of 02/22/2022) [facility] History of Past illness Narrative* Problem Noted Date Resolved Date Sepsis 03/09/2020 03/13/2020 Obesity, Class II, BMI 35-39.9 12/06/2019 1 07/09/2019 documented as of this encounter (statuses as of 02/23/2022) [facility] History of Past illness Narrative* Problem Noted Date Resolved Date Sepsis 03/09/2020 03/13/2020 Obesity, Class II, BMI 35-39.9 12/06/2019 1 07/09/2019 documented as of this encounter (statuses as of 02/25/2022) [facility] History of Past illness Narrative* Problem Noted Date Resolved Date Sepsis 03/09/2020 03/13/2020 Obesity, Class II, BMI 35-39.9 12/06/2019 1 07/09/2019 documented as of this encounter (statuses as of 02/28/2022) [facility] History of Past illness Narrative* Problem Noted Date Resolved Date Sepsis 03/09/2020 03/13/2020 Obesity, Class II, BMI 35-39.9 12/06/2019 1 07/09/2019 documented as of this encounter (statuses as of 03/07/2022) [facility] History of Past illness Narrative* Problem Noted Date Resolved Date Sepsis 03/09/2020 03/13/2020 Obesity, Class II, BMI 35-39.9 12/06/2019 1 07/09/2019 documented as of this encounter (statuses as of 03/07/2022) [facility] History of Past illness Narrative* Problem Noted Date Resolved Date Sepsis 03/09/2020 03/13/2020 Obesity, Class II, BMI 35-39.9 12/06/2019 1 07/09/2019 documented as of this encounter (statuses as of 03/09/2022) [facility] History of Past illness Narrative* Problem Noted Date Resolved Date Sepsis 03/09/2020 03/13/2020 Obesity, Class II, BMI 35-39.9 12/06/2019 1 07/09/2019 documented as of this encounter (statuses as of 03/09/2022) [facility] History of Past illness Narrative* Problem Noted Date Resolved Date Sepsis 03/09/2020 03/13/2020 Obesity, Class II, BMI 35-39.9 12/06/2019 1 07/09/2019 documented as of this encounter (statuses as of 03/09/2022) [facility] History of Past illness Narrative* Problem Noted Date Resolved Date Sepsis 03/09/2020 03/13/2020 Obesity, Class II, BMI 35-39.9 12/06/2019 1 07/09/2019 documented as of this encounter (statuses as of 03/10/2022) [facility] History of Past illness Narrative* Problem Noted Date Resolved Date Sepsis 03/09/2020 03/13/2020 Obesity, Class II, BMI 35-39.9 12/06/2019 1 07/09/2019 documented as of this encounter (statuses as of 03/11/2022) [facility] History of Past illness Narrative* Problem Noted Date Resolved Date Sepsis 03/09/2020 03/13/2020 Obesity, Class II, BMI 35-39.9 12/06/2019 1 07/09/2019 documented as of this encounter (statuses as of 03/14/2022) [facility] History of Past illness Narrative* Problem Noted Date Resolved Date Sepsis 03/09/2020 03/13/2020 Obesity, Class II, BMI 35-39.9 12/06/2019 1 07/09/2019 documented as of this encounter (statuses as of 03/16/2022) [facility] History of Past illness Narrative* Problem Noted Date Resolved Date Sepsis 03/09/2020 03/13/2020 Obesity, Class II, BMI 35-39.9 12/06/2019 1 07/09/2019 documented as of this encounter (statuses as of 03/16/2022) [facility] History of Past illness Narrative* Problem Noted Date Resolved Date Sepsis 03/09/2020 03/13/2020 Obesity, Class II, BMI 35-39.9 12/06/2019 1 07/09/2019 documented as of this encounter (statuses as of 03/16/2022) [facility] History of Past illness Narrative* Problem Noted Date Resolved Date Sepsis 03/09/2020 03/13/2020 Obesity, Class II, BMI 35-39.9 12/06/2019 1 07/09/2019 documented as of this encounter (statuses as of 03/16/2022) [facility] History of Past illness Narrative* Problem Noted Date Resolved Date Sepsis 03/09/2020 03/13/2020 Obesity, Class II, BMI 35-39.9 12/06/2019 1 07/09/2019 documented as of this encounter (statuses as of 03/17/2022) [facility] History of Past illness Narrative* Problem Noted Date Resolved Date Sepsis 03/09/2020 03/13/2020 Obesity, Class II, BMI 35-39.9 12/06/2019 1 07/09/2019 documented as of this encounter (statuses as of 03/28/2022) [facility] History of Past illness Narrative* Problem Noted Date Resolved Date Sepsis 03/09/2020 03/13/2020 Obesity, Class II, BMI 35-39.9 12/06/2019 1 07/09/2019 documented as of this encounter (statuses as of 03/30/2022) [address]19-2020 History of Past illness Narrative* Problem Noted Date Resolved Date Sepsis 03/09/2020 03/13/2020 Obesity, Class II, BMI 35-39.9 12/06/2019 1 07/09/2019 documented as of this encounter (statuses as of 03/30/2022) [facility] History of Past illness Narrative* Problem Noted Date Resolved Date Sepsis 03/09/2020 03/13/2020 Obesity, Class II, BMI 35-39.9 12/06/2019 1 07/09/2019 documented as of this encounter (statuses as of 03/30/2022) [facility] History of Past illness Narrative* Problem Noted Date Resolved Date Sepsis 03/09/2020 03/13/2020 Obesity, Class II, BMI 35-39.9 12/06/2019 1 07/09/2019 documented as of this encounter (statuses as of 04/05/2022) [facility] History of Past illness Narrative* Problem Noted Date Resolved Date Sepsis 03/09/2020 03/13/2020 Obesity, Class II, BMI 35-39.9 12/06/2019 1 07/09/2019 documented as of this encounter (statuses as of 04/06/2022) [facility] History of Past illness Narrative* Problem Noted Date Resolved Date Sepsis 03/09/2020 03/13/2020 Obesity, Class II, BMI 35-39.9 12/06/2019 1 07/09/2019 documented as of this encounter (statuses as of 04/06/2022) [facility] History of Past illness Narrative* Problem Noted Date Resolved Date Sepsis 03/09/2020 03/13/2020 Obesity, Class II, BMI 35-39.9 12/06/2019 1 07/09/2019 documented as of this encounter (statuses as of 04/06/2022) [facility] History of Past illness Narrative* Problem Noted Date Resolved Date Sepsis 03/09/2020 03/13/2020 Obesity, Class II, BMI 35-39.9 12/06/2019 1 07/09/2019 documented as of this encounter (statuses as of 04/20/2022) [facility] History of Past illness Narrative* Problem Noted Date Resolved Date Sepsis 03/09/2020 03/13/2020 Obesity, Class II, BMI 35-39.9 12/06/2019 1 07/09/2019 documented as of this encounter (statuses as of 04/20/2022) [facility] History of Past illness Narrative* Problem Noted Date Resolved Date Sepsis 03/09/2020 03/13/2020 Obesity, Class II, BMI 35-39.9 12/06/2019 1 07/09/2019 documented as of this encounter (statuses as of 04/26/2022) [facility] History of Past illness Narrative* Problem Noted Date Resolved Date Sepsis 03/09/2020 03/13/2020 Obesity, Class II, BMI 35-39.9 12/06/2019 1 07/09/2019 documented as of this encounter (statuses as of 04/27/2022) [facility] History of Past illness Narrative* Problem Noted Date Resolved Date Sepsis 03/09/2020 03/13/2020 Obesity, Class II, BMI 35-39.9 12/06/2019 1 07/09/2019 documented as of this encounter (statuses as of 04/29/2022) [facility] History of Past illness Narrative* Problem Noted Date Resolved Date Sepsis 03/09/2020 03/13/2020 Obesity, Class II, BMI 35-39.9 12/06/2019 1 07/09/2019 documented as of this encounter (statuses as of 05/11/2022) [facility] History of Past illness Narrative* Problem Noted Date Resolved Date Sepsis 03/09/2020 03/13/2020 Obesity, Class II, BMI 35-39.9 12/06/2019 1 07/09/2019 documented as of this encounter (statuses as of 05/11/2022) [facility] History of Past illness Narrative* Problem Noted Date Resolved Date Sepsis 03/09/2020 03/13/2020 Obesity, Class II, BMI 35-39.9 12/06/2019 1 07/09/2019 documented as of this encounter (statuses as of 05/11/2022) [facility] History of Past illness Narrative* Problem Noted Date Resolved Date Sepsis 03/09/2020 03/13/2020 Obesity, Class II, BMI 35-39.9 12/06/2019 1 07/09/2019 documented as of this encounter (statuses as of 05/13/2022) [facility] History of Past illness Narrative* Problem Noted Date Resolved Date Sepsis 03/09/2020 03/13/2020 Obesity, Class II, BMI 35-39.9 12/06/2019 1 07/09/2019 documented as of this encounter (statuses as of 06/01/2022) [facility] History of Past illness Narrative* Problem Noted Date Resolved Date Sepsis 03/09/2020 03/13/2020 Obesity, Class II, BMI 35-39.9 12/06/2019 1 07/09/2019 documented as of this encounter (statuses as of 06/29/2022) [facility] History of Past illness Narrative* Problem Noted Date Resolved Date Sepsis 03/09/2020 03/13/2020 Obesity, Class II, BMI 35-39.9 12/06/2019 1 07/09/2019 documented as of this encounter (statuses as of 06/29/2022) [facility] History of Past illness Narrative* Problem Noted Date Resolved Date Sepsis 03/09/2020 03/13/2020 Obesity, Class II, BMI 35-39.9 12/06/2019 1 07/09/2019 documented as of this encounter (statuses as of 08/02/2022) [facility] History of Past illness Narrative* Problem Noted Date Resolved Date Sepsis 03/09/2020 03/13/2020 Obesity, Class II, BMI 35-39.9 12/06/2019 1 07/09/2019 documented as of this encounter (statuses as of 08/02/2022) [facility] History of Past illness Narrative* Problem Noted Date Resolved Date Sepsis 03/09/2020 03/13/2020 Obesity, Class II, BMI 35-39.9 12/06/2019 1 07/09/2019 documented as of this encounter (statuses as of 08/04/2022) [facility] History of Past illness Narrative* Problem Noted Date Resolved Date Sepsis 03/09/2020 03/13/2020 Obesity, Class II, BMI 35-39.9 12/06/2019 1 07/09/2019 documented as of this encounter (statuses as of 09/29/2022) [facility] History of Past illness Narrative* Problem Noted Date Resolved Date Sepsis 03/09/2020 03/13/2020 Obesity, Class II, BMI 35-39.9 12/06/2019 1 07/09/2019 documented as of this encounter (statuses as of 09/29/2022) [facility] History of Past illness Narrative* Problem Noted Date Resolved Date Sepsis 03/09/2020 03/13/2020 Obesity, Class II, BMI 35-39.9 12/06/2019 1 07/09/2019 documented as of this encounter (statuses as of 11/03/2022) [facility] History of Past illness Narrative* Problem Noted Date Resolved Date Sepsis 03/09/2020 03/13/2020 Obesity, Class II, BMI 35-39.9 12/06/2019 1 07/09/2019 documented as of this encounter (statuses as of 11/07/2022) [facility] History of Past illness Narrative* Problem Noted Date Resolved Date Sepsis 03/09/2020 03/13/2020 Obesity, Class II, BMI 35-39.9 12/06/2019 1 07/09/2019 documented as of this encounter (statuses as of 11/10/2022) [address]19-2020 History of Past illness Narrative* Problem Noted Date Resolved Date Sepsis 03/09/2020 03/13/2020 Obesity, Class II, BMI 35-39.9 12/06/2019 1 07/09/2019 documented as of this encounter (statuses as of 11/10/2022) [facility] History of Past illness Narrative* Problem Noted Date Resolved Date Sepsis 03/09/2020 03/13/2020 Obesity, Class II, BMI 35-39.9 12/06/2019 1 07/09/2019 documented as of this encounter (statuses as of 11/24/2022) [facility] History of Past illness Narrative* Problem Noted Date Resolved Date Sepsis 03/09/2020 03/13/2020 Obesity, Class II, BMI 35-39.9 12/06/2019 1 07/09/2019 documented as of this encounter (statuses as of 11/24/2022) [address]19-2020 History of Past illness Narrative* Problem Noted Date Resolved Date Sepsis 03/09/2020 03/13/2020 Obesity, Class II, BMI 35-39.9 12/06/2019 1 07/09/2019 documented as of this encounter (statuses as of 11/24/2022) [address]19-2020 History of Past illness Narrative* Problem Noted Date Diagnosed Date Resolved Date Sepsis 03/09/2020 03/13/2020 Obesity, Class II, BMI 35-39.9 12/06/2019 05/08/2020 documented as of this encounter (statuses as of 11/28/2022) [address]19-2020 History of Past illness Narrative* Problem Noted Date Diagnosed Date Resolved Date Sepsis 03/09/2020 03/13/2020 Obesity, Class II, BMI 35-39.9 12/06/2019 05/08/2020 documented as of this encounter (statuses as of 11/30/2022) [address]19-2020 History of Past illness Narrative* Problem Noted Date Diagnosed Date Resolved Date Sepsis 03/09/2020 03/13/2020 Obesity, Class II, BMI 35-39.9 12/06/2019 05/08/2020 documented as of this encounter (statuses as of 11/30/2022) [facility] History of Past illness Narrative* Problem Noted Date Diagnosed Date Resolved Date Sepsis 03/09/2020 03/13/2020 Obesity, Class II, BMI 35-39.9 12/06/2019 05/08/2020 documented as of this encounter (statuses as of 12/05/2022) [facility] History of Past illness Narrative* Problem Noted Date Diagnosed Date Resolved Date Sepsis 03/09/2020 03/13/2020 Obesity, Class II, BMI 35-39.9 12/06/2019 05/08/2020 documented as of this encounter (statuses as of 12/05/2022) [facility] History of Past illness Narrative* Problem Noted Date Diagnosed Date Resolved Date Sepsis 03/09/2020 03/13/2020 Obesity, Class II, BMI 35-39.9 12/06/2019 05/08/2020 documented as of this encounter (statuses as of 12/06/2022) [facility] History of Past illness Narrative* Problem Noted Date Diagnosed Date Resolved Date Sepsis 03/09/2020 03/13/2020 Obesity, Class II, BMI 35-39.9 12/06/2019 05/08/2020 documented as of this encounter (statuses as of 12/06/2022) [facility] History of Past illness Narrative* Problem Noted Date Diagnosed Date Resolved Date Sepsis 03/09/2020 03/13/2020 Obesity, Class II, BMI 35-39.9 12/06/2019 05/08/2020 documented as of this encounter (statuses as of 12/14/2022) [facility] History of Past illness Narrative* Problem Noted Date Diagnosed Date Resolved Date Sepsis 03/09/2020 03/13/2020 Obesity, Class II, BMI 35-39.9 12/06/2019 05/08/2020 documented as of this encounter (statuses as of 12/14/2022) [facility] History of Past illness Narrative* Problem Noted Date Diagnosed Date Resolved Date Sepsis 03/09/2020 03/13/2020 Obesity, Class II, BMI 35-39.9 12/06/2019 05/08/2020 documented as of this encounter (statuses as of 12/21/2022) [address]19-2020 History of Past illness Narrative* Problem Noted Date Diagnosed Date Resolved Date Sepsis 03/09/2020 03/13/2020 Obesity, Class II, BMI 35-39.9 12/06/2019 05/08/2020 documented as of this encounter (statuses as of 12/21/2022) [facility] History of Past illness Narrative* Problem Noted Date Diagnosed Date Resolved Date Sepsis 03/09/2020 03/13/2020 Obesity, Class II, BMI 35-39.9 12/06/2019 05/08/2020 documented as of this encounter (statuses as of 12/21/2022) [facility] History of Past illness Narrative* Problem Noted Date Diagnosed Date Resolved Date Sepsis 03/09/2020 03/13/2020 Obesity, Class II, BMI 35-39.9 12/06/2019 05/08/2020 documented as of this encounter (statuses as of 12/22/2022) [facility] History of Past illness Narrative* Problem Noted Date Diagnosed Date Resolved Date Sepsis 03/09/2020 03/13/2020 Obesity, Class II, BMI 35-39.9 12/06/2019 05/08/2020 documented as of this encounter (statuses as of 01/05/2023) [facility] History of Past illness Narrative* Problem Noted Date Diagnosed Date Resolved Date Sepsis 03/09/2020 03/13/2020 Obesity, Class II, BMI 35-39.9 12/06/2019 05/08/2020 documented as of this encounter (statuses as of 02/01/2023) [facility] History of Past illness Narrative* Problem Noted Date Diagnosed Date Resolved Date Sepsis 03/09/2020 03/13/2020 Obesity, Class II, BMI 35-39.9 12/06/2019 05/08/2020 documented as of this encounter (statuses as of 02/01/2023) [facility] History of Past illness Narrative* Problem Noted Date Diagnosed Date Resolved Date Sepsis 03/09/2020 03/13/2020 Obesity, Class II, BMI 35-39.9 12/06/2019 05/08/2020 documented as of this encounter (statuses as of 02/09/2023) [facility] History of Past illness Narrative* Problem Noted Date Diagnosed Date Resolved Date Sepsis 03/09/2020 03/13/2020 Obesity, Class II, BMI 35-39.9 12/06/2019 05/08/2020 documented as of this encounter (statuses as of 02/10/2023) [facility] History of Past illness Narrative* Problem Noted Date Diagnosed Date Resolved Date Sepsis 03/09/2020 03/13/2020 Obesity, Class II, BMI 35-39.9 12/06/2019 05/08/2020 documented as of this encounter (statuses as of 02/11/2023) [facility] History of Past illness Narrative* Problem Noted Date Diagnosed Date Resolved Date Sepsis 03/09/2020 03/13/2020 Obesity, Class II, BMI 35-39.9 12/06/2019 05/08/2020 documented as of this encounter (statuses as of 03/01/2023) [facility] History of Past illness Narrative* Problem Noted Date Diagnosed Date Resolved Date Sepsis 03/09/2020 03/13/2020 Obesity, Class II, BMI 35-39.9 12/06/2019 05/08/2020 documented as of this encounter (statuses as of 03/03/2023) [facility] History of Past illness Narrative* Problem Noted Date Diagnosed Date Resolved Date Sepsis 03/09/2020 03/13/2020 Obesity, Class II, BMI 35-39.9 12/06/2019 05/08/2020 documented as of this encounter (statuses as of 03/08/2023) [facility] History of Past illness Narrative* Problem Noted Date Diagnosed Date Resolved Date Sepsis 03/09/2020 03/13/2020 Obesity, Class II, BMI 35-39.9 12/06/2019 05/08/2020 documented as of this encounter (statuses as of 03/08/2023) [facility] History of Past illness Narrative* Problem Noted Date Diagnosed Date Resolved Date Sepsis 03/09/2020 03/13/2020 Obesity, Class II, BMI 35-39.9 12/06/2019 05/08/2020 documented as of this encounter (statuses as of 03/09/2023) [facility] History of Past illness Narrative* Problem Noted Date Diagnosed Date Resolved Date Sepsis 03/09/2020 03/13/2020 Obesity, Class II, BMI 35-39.9 12/06/2019 05/08/2020 documented as of this encounter (statuses as of 03/31/2023) [facility] History of Past illness Narrative* Problem Noted Date Diagnosed Date Resolved Date Sepsis 03/09/2020 03/13/2020 Obesity, Class II, BMI 35-39.9 12/06/2019 05/08/2020 documented as of this encounter (statuses as of 04/05/2023) [facility] History of Past illness Narrative* Problem Noted Date Diagnosed Date Resolved Date Sepsis 03/09/2020 03/13/2020 Obesity, Class II, BMI 35-39.9 12/06/2019 05/08/2020 documented as of this encounter (statuses as of 04/05/2023) [facility] History of Past illness Narrative* Problem Noted Date Diagnosed Date Resolved Date Sepsis 03/09/2020 03/13/2020 Obesity, Class II, BMI 35-39.9 12/06/2019 05/08/2020 documented as of this encounter (statuses as of 04/05/2023) [facility] History of Past illness Narrative* Problem Noted Date Diagnosed Date Resolved Date Sepsis 03/09/2020 03/13/2020 Obesity, Class II, BMI 35-39.9 12/06/2019 05/08/2020 documented as of this encounter (statuses as of 04/06/2023) [facility] History of Past illness Narrative* Problem Noted Date Diagnosed Date Resolved Date Sepsis 03/09/2020 03/13/2020 Obesity, Class II, BMI 35-39.9 12/06/2019 05/08/2020 documented as of this encounter (statuses as of 04/07/2023) [facility] History of Past illness Narrative* Problem Noted Date Diagnosed Date Resolved Date Sepsis 03/09/2020 03/13/2020 Obesity, Class II, BMI 35-39.9 12/06/2019 05/08/2020 documented as of this encounter (statuses as of 05/05/2023) [facility] History of Past illness Narrative* Problem Noted Date Diagnosed Date Resolved Date Sepsis 03/09/2020 03/13/2020 Obesity, Class II, BMI 35-39.9 12/06/2019 05/08/2020 documented as of this encounter (statuses as of 05/06/2023) [address]19-2020 History of Past illness Narrative* Problem Noted Date Diagnosed Date Resolved Date Sepsis 03/09/2020 03/13/2020 Obesity, Class II, BMI 35-39.9 12/06/2019 05/08/2020 documented as of this encounter (statuses as of 05/06/2023) [address]19-2020 History of Past illness Narrative* Problem Noted Date Diagnosed Date Resolved Date Sepsis 03/09/2020 03/13/2020 Obesity, Class II, BMI 35-39.9 12/06/2019 05/08/2020 documented as of this encounter (statuses as of 06/23/2023) [address]19-2020 History of Past illness Narrative* Problem Noted Date Diagnosed Date Resolved Date Sepsis 03/09/2020 03/13/2020 Obesity, Class II, BMI 35-39.9 12/06/2019 05/08/2020 documented as of this encounter (statuses as of 06/23/2023) [address]19-2020 History of Past illness Narrative* Problem Noted Date Diagnosed Date Resolved Date Sepsis 03/09/2020 03/13/2020 Obesity, Class II, BMI 35-39.9 12/06/2019 05/08/2020 documented as of this encounter (statuses as of 07/05/2023) [facility] History of Past illness Narrative* Problem Noted Date Diagnosed Date Resolved Date Sepsis 03/09/2020 03/13/2020 Obesity, Class II, BMI 35-39.9 12/06/2019 05/08/2020 documented as of this encounter (statuses as of 07/05/2023) [address]19-2020 History of Past illness Narrative* Problem Noted Date Diagnosed Date Resolved Date Sepsis 03/09/2020 03/13/2020 Obesity, Class II, BMI 35-39.9 12/06/2019 05/08/2020 documented as of this encounter (statuses as of 07/07/2023) [address]19-2020 History of Past illness Narrative* Problem Noted Date Diagnosed Date Resolved Date Sepsis 03/09/2020 03/13/2020 Obesity, Class II, BMI 35-39.9 12/06/2019 05/08/2020 documented as of this encounter (statuses as of 07/13/2023) [address]19-2020 History of Past illness Narrative* Problem Noted Date Diagnosed Date Resolved Date Sepsis 03/09/2020 03/13/2020 Obesity, Class II, BMI 35-39.9 12/06/2019 05/08/2020 documented as of this encounter (statuses as of 07/19/2023) [address]19-2020 History of Past illness Narrative* Problem Noted Date Diagnosed Date Resolved Date Sepsis 03/09/2020 03/13/2020 Obesity, Class II, BMI 35-39.9 12/06/2019 05/08/2020 documented as of this encounter (statuses as of 07/20/2023) [address]19-2020 History of Past illness Narrative* Problem Noted Date Diagnosed Date Resolved Date Sepsis 03/09/2020 03/13/2020 Obesity, Class II, BMI 35-39.9 12/06/2019 05/08/2020 documented as of this encounter (statuses as of 07/20/2023) [address]19-2020 History of Past illness Narrative* Problem Noted Date Diagnosed Date Resolved Date Sepsis 03/09/2020 03/13/2020 Obesity, Class II, BMI 35-39.9 12/06/2019 05/08/2020 documented as of this encounter (statuses as of 07/21/2023) [address]19-2020 History of Past illness Narrative* Problem Noted Date Diagnosed Date Resolved Date Sepsis 03/09/2020 03/13/2020 Obesity, Class II, BMI 35-39.9 12/06/2019 05/08/2020 documented as of this encounter (statuses as of 07/26/2023) [address]19-2020 History of Past illness Narrative* Problem Noted Date Diagnosed Date Resolved Date Sepsis 03/09/2020 03/13/2020 Obesity, Class II, BMI 35-39.9 12/06/2019 05/08/2020 documented as of this encounter (statuses as of 08/02/2023) [address]19-2020 History of Past illness Narrative* Problem Noted Date Diagnosed Date Resolved Date Sepsis 03/09/2020 03/13/2020 Obesity, Class II, BMI 35-39.9 12/06/2019 05/08/2020 documented as of this encounter (statuses as of 08/02/2023) [address]19-2020 History of Past illness Narrative* Problem Noted Date Diagnosed Date Resolved Date Sepsis 03/09/2020 03/13/2020 Obesity, Class II, BMI 35-39.9 12/06/2019 05/08/2020 documented as of this encounter (statuses as of 08/02/2023) [address]19-2020 History of Past illness Narrative* Problem Noted Date Diagnosed Date Resolved Date Sepsis 03/09/2020 03/13/2020 Obesity, Class II, BMI 35-39.9 12/06/2019 05/08/2020 documented as of this encounter (statuses as of 08/04/2023) [address]19-2020 History of Past illness Narrative* Problem Noted Date Diagnosed Date Resolved Date Sepsis 03/09/2020 03/13/2020 Obesity, Class II, BMI 35-39.9 12/06/2019 05/08/2020 documented as of this encounter (statuses as of 08/09/2023) [address]19-2020 History of Past illness Narrative* Problem Noted Date Diagnosed Date Resolved Date Sepsis 03/09/2020 03/13/2020 Obesity, Class II, BMI 35-39.9 12/06/2019 05/08/2020 documented as of this encounter (statuses as of 08/11/2023) [address]19-2020 History of Past illness Narrative* Problem Noted Date Diagnosed Date Resolved Date Sepsis 03/09/2020 03/13/2020 Obesity, Class II, BMI 35-39.9 12/06/2019 05/08/2020 documented as of this encounter (statuses as of 08/23/2023) [address]19-2020 History of Past illness Narrative* Problem Noted Date Diagnosed Date Resolved Date Sepsis 03/09/2020 03/13/2020 Obesity, Class II, BMI 35-39.9 12/06/2019 05/08/2020 documented as of this encounter (statuses as of 08/24/2023) [address]19-2020 History of Past illness Narrative* Problem [...] [facility]: Evaluation note* Diagnosis Malignant neoplasm [...] tobacco use, 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 to health terminal manager current use of anticoagulant Long-term (current) use [...] pancreas documented in this encounter [facility]* Diagnosis Pre-op evaluation- Primary Preoperative examination, unspecified Infection in abdomen (HCC) Unspecified peritonitis Obstructive sleep apnea Obstructive sleep apnea (adult) (pediatric) Former smoker Personal history of tobacco use, 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 to health [facility] current use of anticoagulant Long-term (current) use [...] pancreas documented in this encounter [facility] note* Diagnosis Pre-op evaluation- Primary Preoperative examination, unspecified Infection in abdomen (HCC) Unspecified peritonitis Obstructive sleep apnea Obstructive sleep apnea (adult) (pediatric) Former smoker Personal history of tobacco use, 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 to health terminal manager current use of anticoagulant Long-term (current) use [...] head of pancreas [facility] Diagnosis Pre-op evaluation- Primary Preoperative examination, unspecified Infection in abdomen (HCC) Unspecified peritonitis Obstructive sleep apnea Obstructive sleep apnea (adult) (pediatric) Former smoker Personal history of tobacco use, 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 to health terminal manager current use of anticoagulant Long-term (current) use [...] head [facility] Diagnosis Pre-op evaluation- Primary Preoperative examination, unspecified Infection in abdomen (HCC) Unspecified peritonitis Obstructive sleep apnea Obstructive sleep apnea (adult) (pediatric) Former smoker Personal history of tobacco use, 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 to health terminal manager current use of anticoagulant Long-term (current) use [...] pancreas documented in this encounter [facility] note* Diagnosis Pre-op evaluation- Primary Preoperative examination, unspecified Infection in abdomen (HCC) Unspecified peritonitis Obstructive sleep apnea Obstructive sleep apnea (adult) (pediatric) Former smoker Personal history of tobacco use, 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 to health terminal manager current use of anticoagulant Long-term (current) use [...] pancreas documented in this encounter [facility]* Diagnosis Pre-op evaluation- Primary Preoperative examination, unspecified Infection in abdomen (HCC) Unspecified peritonitis Obstructive sleep apnea Obstructive sleep apnea (adult) (pediatric) Former smoker Personal history of tobacco use, 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 to health [facility] current use of anticoagulant Long-term (current) use [...] (HCC) Acute cough documented in this encounter [facility] note* Diagnosis Pre-op evaluation- Primary Preoperative examination, unspecified Infection in abdomen (HCC) Unspecified peritonitis Obstructive sleep apnea Obstructive sleep apnea (adult) (pediatric) Former smoker Personal history of tobacco use, 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 to health [facility] current use of anticoagulant Long-term (current) use [...] pancreas documented in this encounter [facility] note* Diagnosis Pre-op evaluation- Primary Preoperative examination, unspecified Infection in abdomen (HCC) Unspecified peritonitis Obstructive sleep apnea Obstructive sleep apnea (adult) (pediatric) Former smoker Personal history of tobacco use, 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 to health [facility] current use of anticoagulant Long-term (current) use [...] of malignancy (HCC) documented in this encounter [facility] note* Diagnosis Pre-op evaluation- Primary Preoperative examination, unspecified Infection in abdomen (HCC) Unspecified peritonitis Obstructive sleep apnea Obstructive sleep apnea (adult) (pediatric) Former smoker Personal history of tobacco use, 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 to health terminal manager current use of anticoagulant Long-term (current) use [...] pancreas documented in this encounter [facility] note* Diagnosis Pre-op evaluation- Primary Preoperative examination, unspecified Infection in abdomen (HCC) Unspecified peritonitis Obstructive sleep apnea Obstructive sleep apnea (adult) (pediatric) Former smoker Personal history of tobacco use, 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 to health terminal manager current use of anticoagulant Long-term (current) use [...] head of pancreas [facility] Diagnosis Pre-op evaluation- Primary Preoperative examination, unspecified Infection in abdomen (HCC) Unspecified peritonitis Obstructive sleep apnea Obstructive sleep apnea (adult) (pediatric) Former smoker Personal history of tobacco use, 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 to health [facility] current use of anticoagulant Long-term (current) use [...] pancreas documented in this encounter [facility]* Diagnosis Pre-op evaluation- Primary Preoperative examination, unspecified Infection in abdomen (HCC) Unspecified peritonitis Obstructive sleep apnea Obstructive sleep apnea (adult) (pediatric) Former smoker Personal history of tobacco use, 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 to health [facility] current use of anticoagulant Long-term (current) use [...] head of pancreas [facility] Diagnosis Pre-op evaluation- Primary Preoperative examination, unspecified Infection in abdomen (HCC) Unspecified peritonitis Obstructive sleep apnea Obstructive sleep apnea (adult) (pediatric) Former smoker Personal history of tobacco use, 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 to health terminal manager current use of anticoagulant Long-term (current) use [...] pancreas documented in this encounter [facility] note* Diagnosis Pre-op evaluation- Primary Preoperative examination, unspecified Infection in abdomen (HCC) Unspecified peritonitis Obstructive sleep apnea Obstructive sleep apnea (adult) (pediatric) Former smoker Personal history of tobacco use, 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 to health [facility] current use of anticoagulant Long-term (current) use [...] pancreas documented in this encounter [facility] note* Diagnosis Pre-op evaluation- Primary Preoperative examination, unspecified Infection in abdomen (HCC) Unspecified peritonitis Obstructive sleep apnea Obstructive sleep apnea (adult) (pediatric) Former smoker Personal history of tobacco use, 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 to health [facility] current use of anticoagulant Long-term (current) use [...] head of pancreas documented [facility] Diagnosis Pre-op evaluation- Primary Preoperative examination, unspecified Infection in abdomen (HCC) Unspecified peritonitis Obstructive sleep apnea Obstructive sleep apnea (adult) (pediatric) Former smoker Personal history of tobacco use, 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 to health terminal manager current use of anticoagulant Long-term (current) use [...] of pancreas (HCC) [facility] Diagnosis Pre-op evaluation- Primary Preoperative examination, unspecified Infection in abdomen (HCC) Unspecified peritonitis Obstructive sleep apnea Obstructive sleep apnea (adult) (pediatric) Former smoker Personal history of tobacco use, 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 to health terminal manager current use of anticoagulant Long-term (current) use [...] head of pancreas [facility] Diagnosis Pre-op evaluation- Primary Preoperative examination, unspecified Infection in abdomen (HCC) Unspecified peritonitis Obstructive sleep apnea Obstructive sleep apnea (adult) (pediatric) Former smoker Personal history of tobacco use, 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 to health terminal manager current use of anticoagulant Long-term (current) use [...] head of pancreas [facility] Diagnosis Pre-op evaluation- Primary Preoperative examination, unspecified Infection in abdomen (HCC) Unspecified peritonitis Obstructive sleep apnea Obstructive sleep apnea (adult) (pediatric) Former smoker Personal history of tobacco use, 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 to health [facility] current use of anticoagulant Long-term (current) use [...] of insulin (HCC) [facility] Diagnosis Pre-op evaluation- Primary Preoperative examination, unspecified Infection in abdomen (HCC) Unspecified peritonitis Obstructive sleep apnea Obstructive sleep apnea (adult) (pediatric) Former smoker Personal history of tobacco use, 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 to health terminal manager current use of anticoagulant Long-term (current) use [...] head of pancreas [facility] Diagnosis Pre-op evaluation- Primary Preoperative examination, unspecified Infection in abdomen (HCC) Unspecified peritonitis Obstructive sleep apnea Obstructive sleep apnea (adult) (pediatric) Former smoker Personal history of tobacco use, 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 to health terminal manager current use of anticoagulant Long-term (current) use [...] head of pancreas [facility]* Diagnosis Pneumonia of left lower lobe due to infectious organism- Primary Pancreatic adenocarcinoma (CMS/HCC) Malignant neoplasm of pancreas, part unspecified Immunosuppressed status (CMS/HCC) [facility] Outpatient Procedure (Urgent) - Pending Review Specialty Diagnoses / Procedures Referred By Riaz jordan Referred To [facility] Diagnoses Leg swelling Procedures US LEG VEIN DVT SAD[facility] DUP-SCAN XTR VEINS COMPLETE BILATERAL STUDY Greta Wetzel PA-C [address] [place] [address] [place] [address] [facility] [address] [place] [id number] Referral ID Status Reason Start Date Expiration Date Visits Requested Visits Authorized [id number] Pending Review Auto-Generat ed Referral 10/03/2023 10/02/2024 1 1 [facility] for referral (narrative)* Diagnostic Procedure Only (Routine) - Pending Review Specialty Diagnoses / Procedures Referred By Contbelem t Referred To Contact XR IMAGING Diagnoses 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) Central line complication, initial encounter Procedures XR CHEST 1V FRONTAL PORT RADIOLOGIC EXAM CHEST SINGLE VIEW Greta Wetzel PA-C [address] [place] [address] [place] [address] [place] [address] Referral ID Status Reason Start Date Expiration Date Visits Requested Visits Authorized [id number] Pending Review Auto-Generat ed Referral 11/22/2023 12/21/2024 1 1 [facility] Summary Purpose Family History Relationship Condition Age at Onset Recorded Date/T abdoul Not Specified No pertinent family history Unknown Advance Directives Documents on File Type Date Recorded Patient Resident Caregiver Expl anation Advance Directive(s) 2021 7:23 AM [...] 1 dose, On Mon04/05/23 at 1500, EXP: 0604/08/23 Hazardous Chemotherapy Drug: Use appropriate PPE. Antineoplastic [...] COMPUTED TOMOGRAPHY THORAX W/CONTRAST Grace Bess MD [address] [place] [address] [address] Imaging Referral ID Status Reason Start Date Expiration Date Visits Requested Visits Authorized [id number] Authorized Auto-Generat ed Referral 2 03/24/2023 1 1 Specialty Diagnoses / Procedures Referred By Riaz jordan Referred To Contact Diagnoses Malignant neoplasm of head of pancreas (HCC) Procedures CONSULT TO MEDICAL GENETICS - CANCER MEDICAL GENETICS COUNSELING EACH 30 MINUTES Grace Bess MD [address] [place] [id number] [place] [address] Referral ID Status Reason Start Date Expiration Date Visits Requested Visits Authorized [id number] Pending Review PCP Requested Referral Auto-Generate d Referral 2 02/22/2023 1 1 Specialty Diagnoses / Procedures Referred By Riaz jordan Referred To Contact CT IMAGING Diagnoses Malignant neoplasm of head of pancreas (HCC) Procedures CT ABD/PEL W IVCON CT ABD & PELVIS W/CONTRAST Grace Bess MD [address] [place] [address] Imaging Referral ID Status Reason Start Date Expiration Date Visits Requested Visits Authorized [id number] Authorized Auto-Generat ed Referral 06/01/2022 06/10/2023 1 1 Referral ID Status Reason Start Date Expiration Date Visits Requested Visits Authorized [id number] Authorized Auto-Generat ed Referral 06/01/2022 06/10/2023 1 1 Referral ID Status Reason Start Date Expiration Date Visits Requested Visits Authorized [id number] Pending Review Auto-Generat ed Referral 08/03/2022 07/29/2023 1 1 Referral ID Status Reason Start Date Expiration Date Visits Requested Visits Authorized [id number] Pending Review Auto-Generat ed Referral 08/03/2022 07/29/2023 1 1 Referral ID Status Reason Start Date Expiration Date Visits Requested Visits Authorized [id number] Authorized Auto-Generat ed Referral 11/10/2022 10/29/2023 1 1 Referral ID Status Reason Start Date Expiration Date Visits Requested Visits Authorized [id number] Authorized Auto-Generat ed Referral 11/10/2022 10/29/2023 1 1 Specialty Diagnoses / Procedures Referred By Contac t Referred To Contact Endocrinology Diagnoses Malignant neoplasm of head of pancreas (HCC) Type 2 diabetes mellitus without complication, with long-term current use of insulin (HCC) Procedures CONSULT TO ENDOCRINOLOGY OFFICE/OUTPATIENT NEW HIGH MDM 60-74 MINUTES Greta Wetzel PA-C [address] [place] [address] [place] [address] Referral ID Status Reason Start Date Expiration Date Visits Requested Visits Authorized [id number] Authorized PCP Requested Referral 11/23/2022 11/23/2023 1 [...] COMPUTED TOMOGRAPHY THORAX W/CONTRAST Greta Wetzel PA-C [address] [place] [address] [place] [address] Ct Imaging Referral ID Status Reason Start Date Expiration Date Visits Requested Visits Authorized [id number] Pending Review Auto-Generat ed Referral 12/21/2022 01/20/2024 1 1 Specialty Diagnoses / Procedures Referred By Contac t Referred To Contact CT IMAGING Diagnoses Malignant neoplasm of head of pancreas (HCC) Procedures CT ABD/PEL W IVCON CT ABD & PELVIS W/CONTRAST Grace Bess MD [address] [place] [address] [place] [address] Referral ID Status Reason Start Date Expiration Date Visits Requested Visits Authorized [id number] Authorized Auto-Generat ed Referral 05/26/2023 06/03/2024 1 1 Specialty Diagnoses / Procedures Referred By Contac t Referred To Contact CT IMAGING Diagnoses Malignant neoplasm of head of pancreas (HCC) Procedures CT CHEST W IVCON DIAGNOSTIC COMPUTED TOMOGRAPHY THORAX W/CONTRAST Garce Bess MD [address] [place] [address] [place] [address] Referral ID Status Reason Start Date Expiration Date Visits Requested Visits Authorized [id number] Authorized Auto-Generat ed Referral 05/26/2023 06/03/2024 1 1 Referral ID Status Reason Start Date Expiration Date Visits Requested Visits Authorized [id number] Authorized Auto-Generat ed Referral 08/16/2023 08/31/2024 1 1 Referral ID Status Reason Start Date Expiration Date Visits Requested Visits Authorized [id number] Authorized Auto-Generat ed Referral 08/16/2023 08/31/2024 1 1 Referral ID Status Reason Start Date Expiration Date Visits Requested Visits Authorized [id number] Authorized Auto-Generat ed Referral 11/21/2023 11/29/2024 1 1 Referral ID Status Reason Start Date Expiration Date Visits Requested Visits Authorized [id number] Authorized Auto-Generat ed Referral 11/21/2023 11/29/2024 1 1 Referral ID Status Reason Start Date Expiration Date V isits Requested Visits Authorized [id number] Closed Auto-Generate d Referral 11/21/2023 11/29/2024 1 1 Referral ID Status Reason Start Date Expiration Date V isits Requested Visits Authorized [id number] Closed Auto-Generate d Referral 11/21/2023 11/29/2024 1 1 Referral ID Status Reason Start Date Expiration Date V isits Requested Visits Authorized [id number] Closed Auto-Generate d Referral 08/16/2023 08/31/2024 1 1 Referral ID Status Reason Start Date Expiration Date V isits Requested Visits Authorized [id number] Closed Auto-Generate d Referral 08/16/2023 08/31/2024 1 1 Referral ID Status Reason Start Date Expiration Date V isits Requested Visits Authorized [id number] Closed Auto-Generate d Referral 05/26/2023 06/03/2024 1 1 Referral ID Status Reason Start Date Expiration Date V isits Requested Visits Authorized [id number] Closed Auto-Generate d Referral 05/26/2023 06/03/2024 1 1 Referral ID Status Reason Start Date Expiration Date V isits Requested Visits Authorized [id number] Closed Auto-Generate d Referral 11/10/2022 10/29/2023 1 1 Referral ID Status Reason Start Date Expiration Date V isits Requested Visits Authorized [id number] Closed Auto-Generate d Referral 11/10/2022 10/29/2023 1 1 Referral ID Status Reason Start Date Expiration Date V isits Requested Visits Authorized [id number] Closed Auto-Generate d Referral 07/25/2022 07/29/2023 1 1 Referral ID Status Reason Start Date Expiration Date V isits Requested Visits Authorized [id number] Closed Auto-Generate d Referral 07/25/2022 07/29/2023 1 1 Referral ID Status Reason Start Date Expiration Date V isits Requested Visits Authorized [id number] Closed Auto-Generate d Referral 06/01/2022 06/10/2023 1 1 Referral ID Status Reason Start Date Expiration Date V isits Requested Visits Authorized [id number] Closed Auto-Generate d Referral 06/01/2022 06/10/2023 1 1 Referral ID Status Reason Start Date Expiration Date V isits Requested Visits Authorized [id number] Closed Auto-Generate d Referral 03/01/2022 03/24/2023 1 1 Specialty Diagnoses / Procedures Referred By Riaz t Referred To Contact CT IMAGING Diagnoses Other chronic pancreatitis (HCC) Procedures CT PANCREAS W IVCON [place] ABDOMEN W/[place] [address] [address] [facility] [address] [place] [address] [place] [address] Referral ID Status Reason Start Date Expiration Date V isits Requested Visits Authorized [id number] Closed Auto-Generate d Referral 07/21/2021 08/14/2022 1 1 Specialty Diagnoses / Procedures Referred By Contac t Referred To Contact CT IMAGING Diagnoses Malignant neoplasm of head of pancreas (HCC) Procedures CT CHEST W IVCON DIAGNOSTIC COMPUTED TOMOGRAPHY THORAX W/CONTRAST Vivek Smith MD [address] [place] [address] [place] [address] [place] [address] Referral ID Status Reason Start Date Expiration Date Visits Requested Visits Authorized [id number] Authorized Auto-Generat ed Referral 4 05/04/2025 1 1 Specialty Diagnoses / Procedures Referred By Contac t Referred To Contact CT IMAGING Diagnoses Malignant neoplasm of head of pancreas (HCC) Procedures CT ABD/PEL W IVCON CT ABD & PELVIS W/CONTRAST Vivek Smith MD [address] [place] [address] [place] [address] Ct Imaging [facility] Referral ID Status Reason Start Date Expiration Date Visits Requested Visits Authorized [id number] Authorized Auto-Generat ed Referral 05/04/2025 1 1 Chief Complaint and Reason for Visit Chief Complaint fall Additional Source Comments (unrecognized sect ion and content) No Status Records FoundNo Status Records FoundNo Status Records FoundNo Status Records FoundNo Status Records FoundNo Status Records FoundNo Status Records FoundNo Status Records FoundNo Status Records FoundNo Status Records Found INFORMATION SOURCE (unrecogn ized section and content) DATE CREATED AUTHOR 12/12/2019 [facility] DATE CREATED AUTHOR AUTHOR'S ORGANIZ ATION 04/16/2020 [facility] DATE CREATED AUTHOR AUTHOR'S ORGANIZ ATION 02/19/2021 [facility] DATE CREATED AUTHOR AUTHOR'S ORGANIZ ATION 06/24/2021 [facility] DATE CREATED AUTHOR AUTHOR'S ORGANIZ ATION 09/27/2021 [facility] DATE CREATED AUTHOR AUTHOR'S ORGANIZ ATION 04/14/2022 [facility] DATE CREATED AUTHOR AUTHOR'S ORGANIZ ATION 11/11/2023 [facility] DATE CREATED AUTHOR AUTHOR'S ORGANIZ ATION 01/03/2024 [facility] DATE CREATED AUTHOR AUTHOR'S ORGANIZ ATION 04/03/2024 [facility] DATE CREATED AUTHOR AUTHOR'S ORGANIZ ATION 04/09/2024 [facility] Source Comments (unrecognize d section and content) In the event this informatio n is protected by the Federal Confidentiality of Alcohol and Drug Abuse Patient Records regulations: The Federal rules restrict any use of the information to criminally investigate or prosecute any alcohol or drug abuse patient.[facility] the event this information is protected by the Federal Confidentiality of Alcohol and Drug Abuse Patient Records regulations: The Federal rules restrict any use of the information to criminally investigate or prosecute any alcohol or drug abuse patient.[facility] Hospital[facility] the event this information is protected by the Federal Confidentiality of Alcohol and Drug Abuse Patient Records regulations: The Federal rules restrict any use of the information to criminally investigate or prosecute any alcohol or drug abuse patient.[facility] HospitalIn the event this information is protected by the Federal Confidentiality of Alcohol and Drug Abuse Patient Records regulations: The Federal rules restrict any use of the information to criminally investigate or prosecute any alcohol or drug abuse patient.[facility] HospitalIn the event this information is protected by the Federal Confidentiality of Alcohol and Drug Abuse Patient Records regulations: The Federal rules restrict any use of the information to criminally investigate or prosecute any alcohol or drug abuse patient.[facility] HospitalIn the event this information is protected by the Federal Confidentiality of Alcohol and Drug Abuse Patient Records regulations: The Federal rules restrict any use of the information to criminally investigate or prosecute any alcohol or drug abuse patient.[facility] HospitalIn the event this information is protected by the Federal Confidentiality of Alcohol and Drug Abuse Patient Records regulations: The Federal rules restrict any use of the information to criminally investigate or prosecute any alcohol or drug abuse patient.[facility] HospitalIn the event this information is protected by the Federal Confidentiality of Alcohol and Drug Abuse Patient Records regulations: The Federal rules restrict any use of the information to criminally investigate or prosecute any alcohol or drug abuse patient.[facility] HospitalIn the event this information is protected by the Federal Confidentiality of Alcohol and Drug Abuse Patient Records regulations: The Federal rules restrict any use of the information to criminally investigate or prosecute any alcohol or drug abuse patient.[facility] HospitalIn the event this information is protected by the Federal Confidentiality of Alcohol and Drug Abuse Patient Records regulations: The Federal rules restrict any use of the information to criminally investigate or prosecute any alcohol or drug abuse patient.[facility] HospitalIn the event this information is protected by the Federal Confidentiality of Alcohol and Drug Abuse Patient Records regulations: The Federal rules restrict any use of the information to criminally investigate or prosecute any alcohol or drug abuse patient.[facility] HospitalIn the event this information is protected by the Federal Confidentiality of Alcohol and Drug Abuse Patient Records regulations: The Federal rules restrict any use of the information to criminally investigate or prosecute any alcohol or drug abuse patient.[facility] HospitalIn the event this information is protected by the Federal Confidentiality of Alcohol and Drug Abuse Patient Records regulations: The Federal rules restrict any use of the information to criminally investigate or prosecute any alcohol or drug abuse patient.[facility] HospitalIn the event this information is protected by the Federal Confidentiality of Alcohol and Drug Abuse Patient Records regulations: The Federal rules restrict any use of the information to criminally investigate or prosecute any alcohol or drug abuse patient.[facility] HospitalIn the event this information is protected by the Federal Confidentiality of Alcohol and Drug Abuse Patient Records regulations: The Federal rules restrict any use of the information to criminally investigate or prosecute any alcohol or drug abuse patient.[facility] HospitalIn the event this information is protected by the Federal Confidentiality of Alcohol and Drug Abuse Patient Records regulations: The Federal rules restrict any use of the information to criminally investigate or prosecute any alcohol or drug abuse patient.[facility] HospitalIn the event this information is protected by the Federal Confidentiality of Alcohol and Drug Abuse Patient Records regulations: The Federal rules restrict any use of the information to criminally investigate or prosecute any alcohol or drug abuse patient.[facility] HospitalIn the event this information is protected by the Federal Confidentiality of Alcohol and Drug Abuse Patient Records regulations: The Federal rules restrict any use of the information to criminally investigate or prosecute any alcohol or drug abuse patient.[facility] HospitalIn the event this information is protected by the Federal Confidentiality of Alcohol and Drug Abuse Patient Records regulations: The Federal rules restrict any use of the information to criminally investigate or prosecute any alcohol or drug abuse patient.[facility] HospitalIn the event this information is protected by the Federal Confidentiality of Alcohol and Drug Abuse Patient Records regulations: The Federal rules restrict any use of the information to criminally investigate or prosecute any alcohol or drug abuse patient.[facility] HospitalIn the event this information is protected by the Federal Confidentiality of Alcohol and Drug Abuse Patient Records regulations: The Federal rules restrict any use of the information to criminally investigate or prosecute any alcohol or drug abuse patient.[facility] HospitalIn the event this information is protected by the Federal Confidentiality of Alcohol and Drug Abuse Patient Records regulations: The Federal rules restrict any use of the information to criminally investigate or prosecute any alcohol or drug abuse patient.[facility] HospitalIn the event this information is protected by the Federal Confidentiality of Alcohol and Drug Abuse Patient Records regulations: The Federal rules restrict any use of the information to criminally investigate or prosecute any alcohol or drug abuse patient.[facility] HospitalIn the event this information is protected by the Federal Confidentiality of Alcohol and Drug Abuse Patient Records regulations: The Federal rules restrict any use of the information to criminally investigate or prosecute any alcohol or drug abuse patient.[facility] HospitalIn the event this information is protected by the Federal Confidentiality of Alcohol and Drug Abuse Patient Records regulations: The Federal rules restrict any use of the information to criminally investigate or prosecute any alcohol or drug abuse patient.[facility] HospitalIn the event this information is protected by the Federal Confidentiality of Alcohol and Drug Abuse Patient Records regulations: The Federal rules restrict any use of the information to criminally investigate or prosecute any alcohol or drug abuse patient.[facility] HospitalIn the event this information is protected by the Federal Confidentiality of Alcohol and Drug Abuse Patient Records regulations: The Federal rules restrict any use of the information to criminally investigate or prosecute any alcohol or drug abuse patient.[facility] HospitalIn the event this information is protected by the Federal Confidentiality of Alcohol and Drug Abuse Patient Records regulations: The Federal rules restrict any use of the information to criminally investigate or prosecute any alcohol or drug abuse patient.[facility] HospitalIn the event this information is protected by the Federal Confidentiality of Alcohol and Drug Abuse Patient Records regulations: The Federal rules restrict any use of the information to criminally investigate or prosecute any alcohol or drug abuse patient.[facility] HospitalIn the event this information is protected by the Federal Confidentiality of Alcohol and Drug Abuse Patient Records regulations: The Federal rules restrict any use of the information to criminally investigate or prosecute any alcohol or drug abuse patient.[facility] HospitalIn the event this information is protected by the Federal Confidentiality of Alcohol and Drug Abuse Patient Records regulations: The Federal rules restrict any use of the information to criminally investigate or prosecute any alcohol or drug abuse patient.[facility] HospitalIn the event this information is protected by the Federal Confidentiality of Alcohol and Drug Abuse Patient Records regulations: The Federal rules restrict any use of the information to criminally investigate or prosecute any alcohol or drug abuse patient.[facility] HospitalIn the event this information is protected by the Federal Confidentiality of Alcohol and Drug Abuse Patient Records regulations: The Federal rules restrict any use of the information to criminally investigate or prosecute any alcohol or drug abuse patient.[facility] HospitalIn the event this information is protected by the Federal Confidentiality of Alcohol and Drug Abuse Patient Records regulations: The Federal rules restrict any use of the information to criminally investigate or prosecute any alcohol or drug abuse patient.[facility] HospitalIn the event this information is protected by the Federal Confidentiality of Alcohol and Drug Abuse Patient Records regulations: The Federal rules restrict any use of the information to criminally investigate or prosecute any alcohol or drug abuse patient.[facility] HospitalIn the event this information is protected by the Federal Confidentiality of Alcohol and Drug Abuse Patient Records regulations: The Federal rules restrict any use of the information to criminally investigate or prosecute any alcohol or drug abuse patient.[facility] HospitalIn the event this information is protected by the Federal Confidentiality of Alcohol and Drug Abuse Patient Records regulations: The Federal rules restrict any use of the information to criminally investigate or prosecute any alcohol or drug abuse patient.[facility] HospitalIn the event this information is protected by the Federal Confidentiality of Alcohol and Drug Abuse Patient Records regulations: The Federal rules restrict any use of the information to criminally investigate or prosecute any alcohol or drug abuse patient.[facility] HospitalIn the event this information is protected by the Federal Confidentiality of Alcohol and Drug Abuse Patient Records regulations: The Federal rules restrict any use of the information to criminally investigate or prosecute any alcohol or drug abuse patient.[facility] HospitalIn the event this information is protected by the Federal Confidentiality of Alcohol and Drug Abuse Patient Records regulations: The Federal rules restrict any use of the information to criminally investigate or prosecute any alcohol or drug abuse patient.[facility] HospitalIn the event this information is protected by the Federal Confidentiality of Alcohol and Drug Abuse Patient Records regulations: The Federal rules restrict any use of the information to criminally investigate or prosecute any alcohol or drug abuse patient.[facility] HospitalIn the event this information is protected by the Federal Confidentiality of Alcohol and Drug Abuse Patient Records regulations: The Federal rules restrict any use of the information to criminally investigate or prosecute any alcohol or drug abuse patient.[facility] HospitalIn the event this information is protected by the Federal Confidentiality of Alcohol and Drug Abuse Patient Records regulations: The Federal rules restrict any use of the information to criminally investigate or prosecute any alcohol or drug abuse patient.[facility] HospitalIn the event this information is protected by the Federal Confidentiality of Alcohol and Drug Abuse Patient Records regulations: The Federal rules restrict any use of the information to criminally investigate or prosecute any alcohol or drug abuse patient.[facility] HospitalIn the event this information is protected by the Federal Confidentiality of Alcohol and Drug Abuse Patient Records regulations: The Federal rules restrict any use of the information to criminally investigate or prosecute any alcohol or drug abuse patient.[facility] HospitalIn the event this information is protected by the Federal Confidentiality of Alcohol and Drug Abuse Patient Records regulations: The Federal rules restrict any use of the information to criminally investigate or prosecute any alcohol or drug abuse patient.[facility] HospitalIn the event this information is protected by the Federal Confidentiality of Alcohol and Drug Abuse Patient Records regulations: The Federal rules restrict any use of the information to criminally investigate or prosecute any alcohol or drug abuse patient.[facility] HospitalIn the event this information is protected by the Federal Confidentiality of Alcohol and Drug Abuse Patient Records regulations: The Federal rules restrict any use of the information to criminally investigate or prosecute any alcohol or drug abuse patient.[facility] HospitalIn the event this information is protected by the Federal Confidentiality of Alcohol and Drug Abuse Patient Records regulations: The Federal rules restrict any use of the information to criminally investigate or prosecute any alcohol or drug abuse patient.[facility] HospitalIn the event this information is protected by the Federal Confidentiality of Alcohol and Drug Abuse Patient Records regulations: The Federal rules restrict any use of the information to criminally investigate or prosecute any alcohol or drug abuse patient.[facility] HospitalIn the event this information is protected by the Federal Confidentiality of Alcohol and Drug Abuse Patient Records regulations: The Federal rules restrict any use of the information to criminally investigate or prosecute any alcohol or drug abuse patient.[facility] HospitalIn the event this information is protected by the Federal Confidentiality of Alcohol and Drug Abuse Patient Records regulations: The Federal rules restrict any use of the information to criminally investigate or prosecute any alcohol or drug abuse patient.[facility] HospitalIn the event this information is protected by the Federal Confidentiality of Alcohol and Drug Abuse Patient Records regulations: The Federal rules restrict any use of the information to criminally investigate or prosecute any alcohol or drug abuse patient.[facility] HospitalIn the event this information is protected by the Federal Confidentiality of Alcohol and Drug Abuse Patient Records regulations: The Federal rules restrict any use of the information to criminally investigate or prosecute any alcohol or drug abuse patient.[facility] HospitalIn the event this information is protected by the Federal Confidentiality of Alcohol and Drug Abuse Patient Records regulations: The Federal rules restrict any use of the information to criminally investigate or prosecute any alcohol or drug abuse patient.[facility] HospitalIn the event this information is protected by the Federal Confidentiality of Alcohol and Drug Abuse Patient Records regulations: The Federal rules restrict any use of the information to criminally investigate or prosecute any alcohol or drug abuse patient.[facility] HospitalIn the event this information is protected by the Federal Confidentiality of Alcohol and Drug Abuse Patient Records regulations: The Federal rules restrict any use of the information to criminally investigate or prosecute any alcohol or drug abuse patient.[facility] HospitalIn the event this information is protected by the Federal Confidentiality of Alcohol and Drug Abuse Patient Records regulations: The Federal rules restrict any use of the information to criminally investigate or prosecute any alcohol or drug abuse patient.[facility] HospitalIn the event this information is protected by the Federal Confidentiality of Alcohol and Drug Abuse Patient Records regulations: The Federal rules restrict any use of the information to criminally investigate or prosecute any alcohol or drug abuse patient.[facility] HospitalIn the event this information is protected by the Federal Confidentiality of Alcohol and Drug Abuse Patient Records regulations: The Federal rules restrict any use of the information to criminally investigate or prosecute any alcohol or drug abuse patient.[facility] HospitalIn the event this information is protected by the Federal Confidentiality of Alcohol and Drug Abuse Patient Records regulations: The Federal rules restrict any use of the information to criminally investigate or prosecute any alcohol or drug abuse patient.[facility] HospitalIn the event this information is protected by the Federal Confidentiality of Alcohol and Drug Abuse Patient Records regulations: The Federal rules restrict any use of the information to criminally investigate or prosecute any alcohol or drug abuse patient.[facility] HospitalIn the event this information is protected by the Federal Confidentiality of Alcohol and Drug Abuse Patient Records regulations: The Federal rules restrict any use of the information to criminally investigate or prosecute any alcohol or drug abuse patient.[facility] HospitalIn the event this information is protected by the Federal Confidentiality of Alcohol and Drug Abuse Patient Records regulations: The Federal rules restrict any use of the information to criminally investigate or prosecute any alcohol or drug abuse patient.[facility] HospitalIn the event this information is protected by the Federal Confidentiality of Alcohol and Drug Abuse Patient Records regulations: The Federal rules restrict any use of the information to criminally investigate or prosecute any alcohol or drug abuse patient.[facility] HospitalIn the event this information is protected by the Federal Confidentiality of Alcohol and Drug Abuse Patient Records regulations: The Federal rules restrict any use of the information to criminally investigate or prosecute any alcohol or drug abuse patient.[facility] HospitalIn the event this information is protected by the Federal Confidentiality of Alcohol and Drug Abuse Patient Records regulations: The Federal rules restrict any use of the information to criminally investigate or prosecute any alcohol or drug abuse patient.[facility] HospitalIn the event this information is protected by the Federal Confidentiality of Alcohol and Drug Abuse Patient Records regulations: The Federal rules restrict any use of the information to criminally investigate or prosecute any alcohol or drug abuse patient.[facility] HospitalIn the event this information is protected by the Federal Confidentiality of Alcohol and Drug Abuse Patient Records regulations: The Federal rules restrict any use of the information to criminally investigate or prosecute any alcohol or drug abuse patient.[facility] HospitalIn the event this information is protected by the Federal Confidentiality of Alcohol and Drug Abuse Patient Records regulations: The Federal rules restrict any use of the information to criminally investigate or prosecute any alcohol or drug abuse patient.[facility] HospitalIn the event this information is protected by the Federal Confidentiality of Alcohol and Drug Abuse Patient Records regulations: The Federal rules restrict any use of the information to criminally investigate or prosecute any alcohol or drug abuse patient.[facility] HospitalIn the event this information is protected by the Federal Confidentiality of Alcohol and Drug Abuse Patient Records regulations: The Federal rules restrict any use of the information to criminally investigate or prosecute any alcohol or drug abuse patient.[facility] HospitalIn the event this information is protected by the Federal Confidentiality of Alcohol and Drug Abuse Patient Records regulations: The Federal rules restrict any use of the information to criminally investigate or prosecute any alcohol or drug abuse patient.[facility] HospitalIn the event this information is protected by the Federal Confidentiality of Alcohol and Drug Abuse Patient Records regulations: The Federal rules restrict any use of the information to criminally investigate or prosecute any alcohol or drug abuse patient.[facility] HospitalIn the event this information is protected by the Federal Confidentiality of Alcohol and Drug Abuse Patient Records regulations: The Federal rules restrict any use of the information to criminally investigate or prosecute any alcohol or drug abuse patient.[facility] HospitalIn the event this information is protected by the Federal Confidentiality of Alcohol and Drug Abuse Patient Records regulations: The Federal rules restrict any use of the information to criminally investigate or prosecute any alcohol or drug abuse patient.[facility] HospitalIn the event this information is protected by the Federal Confidentiality of Alcohol and Drug Abuse Patient Records regulations: The Federal rules restrict any use of the information to criminally investigate or prosecute any alcohol or drug abuse patient.[facility] HospitalIn the event this information is protected by the Federal Confidentiality of Alcohol and Drug Abuse Patient Records regulations: The Federal rules restrict any use of the information to criminally investigate or prosecute any alcohol or drug abuse patient.[facility] HospitalIn the event this information is protected by the Federal Confidentiality of Alcohol and Drug Abuse Patient Records regulations: The Federal rules restrict any use of the information to criminally investigate or prosecute any alcohol or drug abuse patient.[facility] HospitalIn the event this information is protected by the Federal Confidentiality of Alcohol and Drug Abuse Patient Records regulations: The Federal rules restrict any use of the information to criminally investigate or prosecute any alcohol or drug abuse patient.[facility] HospitalIn the event this information is protected by the Federal Confidentiality of Alcohol and Drug Abuse Patient Records regulations: The Federal rules restrict any use of the information to criminally investigate or prosecute any alcohol or drug abuse patient.[facility] HospitalIn the event this information is protected by the Federal Confidentiality of Alcohol and Drug Abuse Patient Records regulations: The Federal rules restrict any use of the information to criminally investigate or prosecute any alcohol or drug abuse patient.[facility] HospitalIn the event this information is protected by the Federal Confidentiality of Alcohol and Drug Abuse Patient Records regulations: The Federal rules restrict any use of the information to criminally investigate or prosecute any alcohol or drug abuse patient.[facility] HospitalIn the event this information is protected by the Federal Confidentiality of Alcohol and Drug Abuse Patient Records regulations: The Federal rules restrict any use of the information to criminally investigate or prosecute any alcohol or drug abuse patient.[facility] HospitalIn the event this information is protected by the Federal Confidentiality of Alcohol and Drug Abuse Patient Records regulations: The Federal rules restrict any use of the information to criminally investigate or prosecute any alcohol or drug abuse patient.[facility] HospitalIn the event this information is protected by the Federal Confidentiality of Alcohol and Drug Abuse Patient Records regulations: The Federal rules restrict any use of the information to criminally investigate or prosecute any alcohol or drug abuse patient.[facility] HospitalIn the event this information is protected by the Federal Confidentiality of Alcohol and Drug Abuse Patient Records regulations: The Federal rules restrict any use of the information to criminally investigate or prosecute any alcohol or drug abuse patient.[facility] HospitalIn the event this information is protected by the Federal Confidentiality of Alcohol and Drug Abuse Patient Records regulations: The Federal rules restrict any use of the information to criminally investigate or prosecute any alcohol or drug abuse patient.[facility] HospitalIn the event this information is protected by the Federal Confidentiality of Alcohol and Drug Abuse Patient Records regulations: The Federal rules restrict any use of the information to criminally investigate or prosecute any alcohol or drug abuse patient.[facility] HospitalIn the event this information is protected by the Federal Confidentiality of Alcohol and Drug Abuse Patient Records regulations: The Federal rules restrict any use of the information to criminally investigate or prosecute any alcohol or drug abuse patient.[facility] HospitalIn the event this information is protected by the Federal Confidentiality of Alcohol and Drug Abuse Patient Records regulations: The Federal rules restrict any use of the information to criminally investigate or prosecute any alcohol or drug abuse patient.[facility] HospitalIn the event this information is protected by the Federal Confidentiality of Alcohol and Drug Abuse Patient Records regulations: The Federal rules restrict any use of the information to criminally investigate or prosecute any alcohol or drug abuse patient.[facility] HospitalIn the event this information is protected by the Federal Confidentiality of Alcohol and Drug Abuse Patient Records regulations: The Federal rules restrict any use of the information to criminally investigate or prosecute any alcohol or drug abuse patient.[facility] HospitalIn the event this information is protected by the Federal Confidentiality of Alcohol and Drug Abuse Patient Records regulations: The Federal rules restrict any use of the information to criminally investigate or prosecute any alcohol or drug abuse patient.[facility] HospitalIn the event this information is protected by the Federal Confidentiality of Alcohol and Drug Abuse Patient Records regulations: The Federal rules restrict any use of the information to criminally investigate or prosecute any alcohol or drug abuse patient.[facility] HospitalIn the event this information is protected by the Federal Confidentiality of Alcohol and Drug Abuse Patient Records regulations: The Federal rules restrict any use of the information to criminally investigate or prosecute any alcohol or drug abuse patient.[facility] HospitalIn the event this information is protected by the Federal Confidentiality of Alcohol and Drug Abuse Patient Records regulations: The Federal rules restrict any use of the information to criminally investigate or prosecute any alcohol or drug abuse patient.[facility] HospitalIn the event this information is protected by the Federal Confidentiality of Alcohol and Drug Abuse Patient Records regulations: The Federal rules restrict any use of the information to criminally investigate or prosecute any alcohol or drug abuse patient.[facility] HospitalIn the event this information is protected by the Federal Confidentiality of Alcohol and Drug Abuse Patient Records regulations: The Federal rules restrict any use of the information to criminally investigate or prosecute any alcohol or drug abuse patient.[facility] HospitalIn the event this information is protected by the Federal Confidentiality of Alcohol and Drug Abuse Patient Records regulations: The Federal rules restrict any use of the information to criminally investigate or prosecute any alcohol or drug abuse patient.[facility] HospitalIn the event this information is protected by the Federal Confidentiality of Alcohol and Drug Abuse Patient Records regulations: The Federal rules restrict any use of the information to criminally investigate or prosecute any alcohol or drug abuse patient.[facility] HospitalIn the event this information is protected by the Federal Confidentiality of Alcohol and Drug Abuse Patient Records regulations: The Federal rules restrict any use of the information to criminally investigate or prosecute any alcohol or drug abuse patient.[facility] HospitalIn the event this information is protected by the Federal Confidentiality of Alcohol and Drug Abuse Patient Records regulations: The Federal rules restrict any use of the information to criminally investigate or prosecute any alcohol or drug abuse patient.[facility] HospitalIn the event this information is protected by the Federal Confidentiality of Alcohol and Drug Abuse Patient Records regulations: The Federal rules restrict any use of the information to criminally investigate or prosecute any alcohol or drug abuse patient.[facility] HospitalIn the event this information is protected by the Federal Confidentiality of Alcohol and Drug Abuse Patient Records regulations: The Federal rules restrict any use of the information to criminally investigate or prosecute any alcohol or drug abuse patient.[facility] HospitalIn the event this information is protected by the Federal Confidentiality of Alcohol and Drug Abuse Patient Records regulations: The Federal rules restrict any use of the information to criminally investigate or prosecute any alcohol or drug abuse patient.[facility] HospitalIn the event this information is protected by the Federal Confidentiality of Alcohol and Drug Abuse Patient Records regulations: The Federal rules restrict any use of the information to criminally investigate or prosecute any alcohol or drug abuse patient.[facility] HospitalIn the event this information is protected by the Federal Confidentiality of Alcohol and Drug Abuse Patient Records regulations: The Federal rules restrict any use of the information to criminally investigate or prosecute any alcohol or drug abuse patient.[facility] HospitalIn the event this information is protected by the Federal Confidentiality of Alcohol and Drug Abuse Patient Records regulations: The Federal rules restrict any use of the information to criminally investigate or prosecute any alcohol or drug abuse patient.[facility] HospitalIn the event this information is protected by the Federal Confidentiality of Alcohol and Drug Abuse Patient Records regulations: The Federal rules restrict any use of the information to criminally investigate or prosecute any alcohol or drug abuse patient.[facility] HospitalIn the event this information is protected by the Federal Confidentiality of Alcohol and Drug Abuse Patient Records regulations: The Federal rules restrict any use of the information to criminally investigate or prosecute any alcohol or drug abuse patient.[facility] HospitalIn the event this information is protected by the Federal Confidentiality of Alcohol and Drug Abuse Patient Records regulations: The Federal rules restrict any use of the information to criminally investigate or prosecute any alcohol or drug abuse patient.[facility] HospitalIn the event this information is protected by the Federal Confidentiality of Alcohol and Drug Abuse Patient Records regulations: The Federal rules restrict any use of the information to criminally investigate or prosecute any alcohol or drug abuse patient.[facility] HospitalIn the event this information is protected by the Federal Confidentiality of Alcohol and Drug Abuse Patient Records regulations: The Federal rules restrict any use of the information to criminally investigate or prosecute any alcohol or drug abuse patient.[facility] HospitalIn the event this information is protected by the Federal Confidentiality of Alcohol and Drug Abuse Patient Records regulations: The Federal rules restrict any use of the information to criminally investigate or prosecute any alcohol or drug abuse patient.[facility] HospitalIn the event this information is protected by the Federal Confidentiality of Alcohol and Drug Abuse Patient Records regulations: The Federal rules restrict any use of the information to criminally investigate or prosecute any alcohol or drug abuse patient.[facility] HospitalIn the event this information is protected by the Federal Confidentiality of Alcohol and Drug Abuse Patient Records regulations: The Federal rules restrict any use of the information to criminally investigate or prosecute any alcohol or drug abuse patient.[facility] HospitalIn the event this information is protected by the Federal Confidentiality of Alcohol and Drug Abuse Patient Records regulations: The Federal rules restrict any use of the information to criminally investigate or prosecute any alcohol or drug abuse patient.[facility] HospitalIn the event this information is protected by the Federal Confidentiality of Alcohol and Drug Abuse Patient Records regulations: The Federal rules restrict any use of the information to criminally investigate or prosecute any alcohol or drug abuse patient.[facility] HospitalIn the event this information is protected by the Federal Confidentiality of Alcohol and Drug Abuse Patient Records regulations: The Federal rules restrict any use of the information to criminally investigate or prosecute any alcohol or drug abuse patient.[facility] HospitalIn the event this information is protected by the Federal Confidentiality of Alcohol and Drug Abuse Patient Records regulations: The Federal rules restrict any use of the information to criminally investigate or prosecute any alcohol or drug abuse patient.[facility] HospitalIn the event this information is protected by the Federal Confidentiality of Alcohol and Drug Abuse Patient Records regulations: The Federal rules restrict any use of the information to criminally investigate or prosecute any alcohol or drug abuse patient.[facility] HospitalIn the event this information is protected by the Federal Confidentiality of Alcohol and Drug Abuse Patient Records regulations: The Federal rules restrict any use of the information to criminally investigate or prosecute any alcohol or drug abuse patient.[facility] HospitalIn the event this information is protected by the Federal Confidentiality of Alcohol and Drug Abuse Patient Records regulations: The Federal rules restrict any use of the information to criminally investigate or prosecute any alcohol or drug abuse patient.[facility] HospitalIn the event this information is protected by the Federal Confidentiality of Alcohol and Drug Abuse Patient Records regulations: The Federal rules restrict any use of the information to criminally investigate or prosecute any alcohol or drug abuse patient.[facility] HospitalIn the event this information is protected by the Federal Confidentiality of Alcohol and Drug Abuse Patient Records regulations: The Federal rules restrict any use of the information to criminally investigate or prosecute any alcohol or drug abuse patient.[facility] HospitalIn the event this information is protected by the Federal Confidentiality of Alcohol and Drug Abuse Patient Records regulations: The Federal rules restrict any use of the information to criminally investigate or prosecute any alcohol or drug abuse patient.[facility] HospitalIn the event this information is protected by the Federal Confidentiality of Alcohol and Drug Abuse Patient Records regulations: The Federal rules restrict any use of the information to criminally investigate or prosecute any alcohol or drug abuse patient.[facility] HospitalIn the event this information is protected by the Federal Confidentiality of Alcohol and Drug Abuse Patient Records regulations: The Federal rules restrict any use of the information to criminally investigate or prosecute any alcohol or drug abuse patient.[facility] HospitalIn the event this information is protected by the Federal Confidentiality of Alcohol and Drug Abuse Patient Records regulations: The Federal rules restrict any use of the information to criminally investigate or prosecute any alcohol or drug abuse patient.[facility] HospitalIn the event this information is protected by the Federal Confidentiality of Alcohol and Drug Abuse Patient Records regulations: The Federal rules restrict any use of the information to criminally investigate or prosecute any alcohol or drug abuse patient.[facility] HospitalIn the event this information is protected by the Federal Confidentiality of Alcohol and Drug Abuse Patient Records regulations: The Federal rules restrict any use of the information to criminally investigate or prosecute any alcohol or drug abuse patient.[facility] HospitalIn the event this information is protected by the Federal Confidentiality of Alcohol and Drug Abuse Patient Records regulations: The Federal rules restrict any use of the information to criminally investigate or prosecute any alcohol or drug abuse patient.[facility] HospitalIn the event this information is protected by the Federal Confidentiality of Alcohol and Drug Abuse Patient Records regulations: The Federal rules restrict any use of the information to criminally investigate or prosecute any alcohol or drug abuse patient.[facility] HospitalIn the event this information is protected by the Federal Confidentiality of Alcohol and Drug Abuse Patient Records regulations: The Federal rules restrict any use of the information to criminally investigate or prosecute any alcohol or drug abuse patient.[facility] HospitalIn the event this information is protected by the Federal Confidentiality of Alcohol and Drug Abuse Patient Records regulations: The Federal rules restrict any use of the information to criminally investigate or prosecute any alcohol or drug abuse patient.[facility] HospitalIn the event this information is protected by the Federal Confidentiality of Alcohol and Drug Abuse Patient Records regulations: The Federal rules restrict any use of the information to criminally investigate or prosecute any alcohol or drug abuse patient.[facility] HospitalIn the event this information is protected by the Federal Confidentiality of Alcohol and Drug Abuse Patient Records regulations: The Federal rules restrict any use of the information to criminally investigate or prosecute any alcohol or drug abuse patient.[facility] HospitalIn the event this information is protected by the Federal Confidentiality of Alcohol and Drug Abuse Patient Records regulations: The Federal rules restrict any use of the information to criminally investigate or prosecute any alcohol or drug abuse patient.[facility] HospitalIn the event this information is protected by the Federal Confidentiality of Alcohol and Drug Abuse Patient Records regulations: The Federal rules restrict any use of the information to criminally investigate or prosecute any alcohol or drug abuse patient.[facility] HospitalIn the event this information is protected by the Federal Confidentiality of Alcohol and Drug Abuse Patient Records regulations: The Federal rules restrict any use of the information to criminally investigate or prosecute any alcohol or drug abuse patient.[facility] HospitalIn the event this information is protected by the Federal Confidentiality of Alcohol and Drug Abuse Patient Records regulations: The Federal rules restrict any use of the information to criminally investigate or prosecute any alcohol or drug abuse patient.[facility] HospitalIn the event this information is protected by the Federal Confidentiality of Alcohol and Drug Abuse Patient Records regulations: The Federal rules restrict any use of the information to criminally investigate or prosecute any alcohol or drug abuse patient.[facility] HospitalIn the event this information is protected by the Federal Confidentiality of Alcohol and Drug Abuse Patient Records regulations: The Federal rules restrict any use of the information to criminally investigate or prosecute any alcohol or drug abuse patient.[facility] HospitalIn the event this information is protected by the Federal Confidentiality of Alcohol and Drug Abuse Patient Records regulations: The Federal rules restrict any use of the information to criminally investigate or prosecute any alcohol or drug abuse patient.[facility] HospitalIn the event this information is protected by the Federal Confidentiality of Alcohol and Drug Abuse Patient Records regulations: The Federal rules restrict any use of the information to criminally investigate or prosecute any alcohol or drug abuse patient.[facility] HospitalIn the event this information is protected by the Federal Confidentiality of Alcohol and Drug Abuse Patient Records regulations: The Federal rules restrict any use of the information to criminally investigate or prosecute any alcohol or drug abuse patient.[facility] HospitalIn the event this information is protected by the Federal Confidentiality of Alcohol and Drug Abuse Patient Records regulations: The Federal rules restrict any use of the information to criminally investigate or prosecute any alcohol or drug abuse patient.[facility] HospitalIn the event this information is protected by the Federal Confidentiality of Alcohol and Drug Abuse Patient Records regulations: The Federal rules restrict any use of the information to criminally investigate or prosecute any alcohol or drug abuse patient.[facility] HospitalIn the event this information is protected by the Federal Confidentiality of Alcohol and Drug Abuse Patient Records regulations: The Federal rules restrict any use of the information to criminally investigate or prosecute any alcohol or drug abuse patient.[facility] HospitalIn the event this information is protected by the Federal Confidentiality of Alcohol and Drug Abuse Patient Records regulations: The Federal rules restrict any use of the information to criminally investigate or prosecute any alcohol or drug abuse patient.[facility] HospitalIn the event this information is protected by the Federal Confidentiality of Alcohol and Drug Abuse Patient Records regulations: The Federal rules restrict any use of the information to criminally investigate or prosecute any alcohol or drug abuse patient.[facility] HospitalIn the event this information is protected by the Federal Confidentiality of Alcohol and Drug Abuse Patient Records regulations: The Federal rules restrict any use of the information to criminally investigate or prosecute any alcohol or drug abuse patient.[facility] HospitalIn the event this information is protected by the Federal Confidentiality of Alcohol and Drug Abuse Patient Records regulations: The Federal rules restrict any use of the information to criminally investigate or prosecute any alcohol or drug abuse patient.[facility] HospitalIn the event this information is protected by the Federal Confidentiality of Alcohol and Drug Abuse Patient Records regulations: The Federal rules restrict any use of the information to criminally investigate or prosecute any alcohol or drug abuse patient.[facility] HospitalIn the event this information is protected by the Federal Confidentiality of Alcohol and Drug Abuse Patient Records regulations: The Federal rules restrict any use of the information to criminally investigate or prosecute any alcohol or drug abuse patient.[facility] HospitalIn the event this information is protected by the Federal Confidentiality of Alcohol and Drug Abuse Patient Records regulations: The Federal rules restrict any use of the information to criminally investigate or prosecute any alcohol or drug abuse patient.[facility] HospitalIn the event this information is protected by the Federal Confidentiality of Alcohol and Drug Abuse Patient Records regulations: The Federal rules restrict any use of the information to criminally investigate or prosecute any alcohol or drug abuse patient.[facility] HospitalIn the event this information is protected by the Federal Confidentiality of Alcohol and Drug Abuse Patient Records regulations: The Federal rules restrict any use of the information to criminally investigate or prosecute any alcohol or drug abuse patient.[facility] HospitalIn the event this information is protected by the Federal Confidentiality of Alcohol and Drug Abuse Patient Records regulations: The Federal rules restrict any use of the information to criminally investigate or prosecute any alcohol or drug abuse patient.[facility] HospitalIn the event this information is protected by the Federal Confidentiality of Alcohol and Drug Abuse Patient Records regulations: The Federal rules restrict any use of the information to criminally investigate or prosecute any alcohol or drug abuse patient.[facility] HospitalIn the event this information is protected by the Federal Confidentiality of Alcohol and Drug Abuse Patient Records regulations: The Federal rules restrict any use of the information to criminally investigate or prosecute any alcohol or drug abuse patient.[facility] HospitalIn the event this information is protected by the Federal Confidentiality of Alcohol and Drug Abuse Patient Records regulations: The Federal rules restrict any use of the information to criminally investigate or prosecute any alcohol or drug abuse patient.[facility] HospitalIn the event this information is protected by the Federal Confidentiality of Alcohol and Drug Abuse Patient Records regulations: The Federal rules restrict any use of the information to criminally investigate or prosecute any alcohol or drug abuse patient.[facility] HospitalIn the event this information is protected by the Federal Confidentiality of Alcohol and Drug Abuse Patient Records regulations: The Federal rules restrict any use of the information to criminally investigate or prosecute any alcohol or drug abuse patient.[facility] HospitalIn the event this information is protected by the Federal Confidentiality of Alcohol and Drug Abuse Patient Records regulations: The Federal rules restrict any use of the information to criminally investigate or prosecute any alcohol or drug abuse patient.[facility] HospitalIn the event this information is protected by the Federal Confidentiality of Alcohol and Drug Abuse Patient Records regulations: The Federal rules restrict any use of the information to criminally investigate or prosecute any alcohol or drug abuse patient.[facility] HospitalIn the event this information is protected by the Federal Confidentiality of Alcohol and Drug Abuse Patient Records regulations: The Federal rules restrict any use of the information to criminally investigate or prosecute any alcohol or drug abuse patient.[facility] HospitalIn the event this information is protected by the Federal Confidentiality of Alcohol and Drug Abuse Patient Records regulations: The Federal rules restrict any use of the information to criminally investigate or prosecute any alcohol or drug abuse patient.[facility] HospitalIn the event this information is protected by the Federal Confidentiality of Alcohol and Drug Abuse Patient Records regulations: The Federal rules restrict any use of the information to criminally investigate or prosecute any alcohol or drug abuse patient.[facility] HospitalIn the event this information is protected by the Federal Confidentiality of Alcohol and Drug Abuse Patient Records regulations: The Federal rules restrict any use of the information to criminally investigate or prosecute any alcohol or drug abuse patient.[facility] HospitalIn the event this information is protected by the Federal Confidentiality of Alcohol and Drug Abuse Patient Records regulations: The Federal rules restrict any use of the information to criminally investigate or prosecute any alcohol or drug abuse patient.[facility] HospitalIn the event this information is protected by the Federal Confidentiality of Alcohol and Drug Abuse Patient Records regulations: The Federal rules restrict any use of the information to criminally investigate or prosecute any alcohol or drug abuse patient.[facility] HospitalIn the event this information is protected by the Federal Confidentiality of Alcohol and Drug Abuse Patient Records regulations: The Federal rules restrict any use of the information to criminally investigate or prosecute any alcohol or drug abuse patient.[facility] HospitalIn the event this information is protected by the Federal Confidentiality of Alcohol and Drug Abuse Patient Records regulations: The Federal rules restrict any use of the information to criminally investigate or prosecute any alcohol or drug abuse patient.[facility] HospitalIn the event this information is protected by the Federal Confidentiality of Alcohol and Drug Abuse Patient Records regulations: The Federal rules restrict any use of the information to criminally investigate or prosecute any alcohol or drug abuse patient.[facility] HospitalIn the event this information is protected by the Federal Confidentiality of Alcohol and Drug Abuse Patient Records regulations: The Federal rules restrict any use of the information to criminally investigate or prosecute any alcohol or drug abuse patient.[facility] HospitalIn the event this information is protected by the Federal Confidentiality of Alcohol and Drug Abuse Patient Records regulations: The Federal rules restrict any use of the information to criminally investigate or prosecute any alcohol or drug abuse patient.[facility] HospitalIn the event this information is protected by the Federal Confidentiality of Alcohol and Drug Abuse Patient Records regulations: The Federal rules restrict any use of the information to criminally investigate or prosecute any alcohol or drug abuse patient.[facility] HospitalIn the event this information is protected by the Federal Confidentiality of Alcohol and Drug Abuse Patient Records regulations: The Federal rules restrict any use of the information to criminally investigate or prosecute any alcohol or drug abuse patient.[facility] HospitalIn the event this information is protected by the Federal Confidentiality of Alcohol and Drug Abuse Patient Records regulations: The Federal rules restrict any use of the information to criminally investigate or prosecute any alcohol or drug abuse patient.[facility] HospitalIn the event this information is protected by the Federal Confidentiality of Alcohol and Drug Abuse Patient Records regulations: The Federal rules restrict any use of the information to criminally investigate or prosecute any alcohol or drug abuse patient.[facility] HospitalIn the event this information is protected by the Federal Confidentiality of Alcohol and Drug Abuse Patient Records regulations: The Federal rules restrict any use of the information to criminally investigate or prosecute any alcohol or drug abuse patient.[facility] HospitalIn the event this information is protected by the Federal Confidentiality of Alcohol and Drug Abuse Patient Records regulations: The Federal rules restrict any use of the information to criminally investigate or prosecute any alcohol or drug abuse patient.[facility] HospitalIn the event this information is protected by the Federal Confidentiality of Alcohol and Drug Abuse Patient Records regulations: The Federal rules restrict any use of the information to criminally investigate or prosecute any alcohol or drug abuse patient.[facility] HospitalIn the event this information is protected by the Federal Confidentiality of Alcohol and Drug Abuse Patient Records regulations: The Federal rules restrict any use of the information to criminally investigate or prosecute any alcohol or drug abuse patient.[facility] HospitalIn the event this information is protected by the Federal Confidentiality of Alcohol and Drug Abuse Patient Records regulations: The Federal rules restrict any use of the information to criminally investigate or prosecute any alcohol or drug abuse patient.[facility] Reason for Visit (unrecogniz ed section and content) Reason Comments Radiology CT Specialty Diagnoses / Procedures Referred By Contac t Referred To Contact CT IMAGING Diagnoses 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) Procedures CT CHEST W IVCON DIAGNOSTIC COMPUTED TOMOGRAPHY THORAX W/CONTRAST Grace Bess MD [address] [place] [address] [place] [address] Referral ID Status Reason Start Date Expiration Date V isits Requested Visits Authorized [id number] Closed Auto-Generate d Referral 05/26/2023 06/03/2024 1 1 Reason Comments Radiology [place] Referral ID Status Reason Start Date Expiration Date V isits Requested Visits Authorized [id number] Closed Auto-Generate d Referral 08/16/2023 08/31/2024 1 [...] Comments Benefits Investigation Reason Comments Care Coordination Radiological Equipment Specialist referral Reason Comments Nutrition Assessment Reason Comments Care Coordination Antiemetics transfer red to [facility] in [place] Reason Comments Care Coordination Follow up call Reason Comments Care Coordination C1D1 treatment follo w up call Reason Comments Pancreatic Cancer 1 week follow Reason Comments Pancreatic Cancer Reason Comments Nutrition Counseling Specialty Diagnoses / Procedures Referred By Riaz jordan Referred To Contact Diagnoses 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) Grace Bess MD [address] [place] [id number] Luis Miguel [address] [address] Referral ID Status Reason Start Date Expiration Date V isits Requested Visits Authorized [id number] Authorized 02/22/2022 05/23/2022 99 99 Reason Comments [...] draw Specialty Diagnoses / Procedures Referred By Riaz jordan Referred To Contact Hematology / HEMATOLOGY/ONCOLOGY Diagnoses 6 week follow up lab port draw 09/26- R/S From 09/30 Called Spoke With Pt Regarding This Appt 09/07-R/S From 09/15 Called Spoke With Pt Spouse She Req This Date/Time Procedures LAB/PORT Grace Bess MD [address] [place] [address] Luis Miguel [place]gado [address] [place] [address] Referral ID Status Reason Start Date Expiration Date V isits Requested Visits Authorized [id number] Authorized 09/28/2022 05/21/2023 99 99 Reason Comments [...] This Date/Time Procedures LAB/PORT Grace Bess MD [address] [place] [id number] Luis Miguel Delgado [address] [place] [address] Reason Comments CVAD Access Reason Comments Care [...] Expiration Date V isits Requested Visits Authorized [id number] Authorized 05/24/2023 08/22/2023 99 99 Reason Comments [...] Expiration Date V isits Requested Visits Authorized [id number] Closed Auto-Generate d Referral 11/21/2023 11/29/2024 1 1 Reason Comments Radio Gen RMP Referral ID Status Reason Start Date Expiration Date V isits Requested Visits Authorized [id number] Closed Auto-Generate d Referral 11/10/2022 10/29/2023 1 1 Referral ID Status Reason Start Date Expiration Date V isits Requested Visits Authorized [id number] Closed Auto-Generate d Referral 07/25/2022 07/29/2023 1 1 Specialty Diagnoses / Procedures Referred By Contac t Referred To Contact CT IMAGING Diagnoses 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) Procedures CT ABD/PEL W IVCON CT ABD & PELVIS W/CONTRAST Grace Bess MD [address] [place] [address] [place] [address] Referral ID Status Reason Start Date Expiration Date V isits Requested Visits Authorized [id number] Closed Auto-Generate d Referral 06/01/2022 06/10/2023 1 [address] Referral ID Status Reason Start Date Expiration Date V isits Requested Visits Authorized [id number] Closed Auto-Generate d Referral 03/01/2022 03/24/2023 1 1 Specialty Diagnoses / Procedures Referred By Contac t Referred To Contact CT IMAGING Diagnoses Other chronic pancreatitis (HCC) Procedures CT PANCREAS W IVCON CT ABDOMEN W/[place] [address] [address] [facility] [address] [place] [address] [place] [address] Referral ID Status Reason Start Date Expiration Date V isits Requested Visits Authorized [id number] Closed Auto-Generate d Referral 07/21/2021 08/14/2022 1 1 Reason Comments Care Coordination [place] 19.9 Reason Comments Follow-up [facility] stay admitted dx: pneumonia discharged home 03/26/24 with rx for levaquin Care Teams (unrecognized sec tion and content) Software Installer Relationship Specialty Start Date End Date Giovanni Salinas II [address] [place] [address] [place] [address] PCP - General Internal Medicine 11/29/19 César Leiva [address] [place] [place] [address] Endocrinology 05/08/20 Software Installer Relationship Specialty Start Date End Date Giovanni Salinas II [address] [place] [address] PCP - General Internal Medicine 11/29/19 César Leiva Firas [address] [place] [address] Endocrinology 05/08/20 Software Installer Relationship Specialty Start Date End Date Giovanni Salinas II [address] [place] [address] PCP - General Internal Medicine 11/29/19 César Leiva Firjanel [address] [place] [address] Endocrinology 05/08/20 Software Installer Relationship Specialty Start Date End Date Giovanni Salinas II [address] [place] [place] [address] PCP - General Internal Medicine 11/29/19 César Leiva [address] [place] [place] [address] Endocrinology 05/08/20 Software Installer Relationship Specialty Start Date End Date Giovanni Salinas II [address] [place] [address] PCP - General Internal Medicine 11/29/19 César Leiva Firjanel [address] [place] [address] Endocrinology 05/08/20 Software Installer Relationship Specialty Start Date End Date Giovanni Salinas II [address] [place] [address] PCP - General Internal Medicine 11/29/19 César Leiva [address] [place] [address] Endocrinology 05/08/20 Software Installer Relationship Specialty Start Date End Date Giovanni Salinas II [address] [place] [address] PCP - General Internal Medicine 11/29/19 César Leiva [address] [place] [place] [address] Endocrinology 05/08/20 Software Installer Relationship Specialty Start Date End Date Giovanni Salinas II [address] [place] [address] PCP - General Internal Medicine 11/29/19 César Leiva [address] [place] [place] [address] Endocrinology 05/08/20 Software Installer Relationship Specialty Start Date End Date Giovanni Salinas II [address] [place] [address] PCP - General Internal Medicine 11/29/19 César Leiva [address] [place] [address] [place] [address] Endocrinology 05/08/20 Josephine Salomon, RN [address] [facility] [place] [address] Specialty Chief Talent Officer Hematology/Oncology 03/04/22 Grace Bess MD [address] [facility] [place] [address] Physician Hematology/Oncology 03/04/22 Greta Wetzel, PA-C [address] [facility] [place] [address] Physician Administrator Social Welfare Hematology/Oncology 03/04/22 Software Installer Relationship Specialty Start Date End Date Giovanni Salinas Raul II [address] [place] [address] PCP - General Internal Medicine 11/29/19 [facility] [address] [facility] 7 [place] [address] Endocrinology 05/08/20 Josephine Salomon, RN [address] [facility] [place] [address] Specialty Chief Talent Officer Hematology/Oncology 03/04/22 Grace Bess MD [address] [facility] [place] [address] Physician Hematology/Oncology 03/04/22 Greta Wetzel PA-C [address] [facility] [place] [address] Physician Administrator Social Welfare Hematology/Oncology 03/04/22 Software Installer Relationship Specialty Start Date End Date Giovanni Salinas Raul II [address] [place] [address] PCP - General Internal Medicine 11/29/19 [facility]ar [address] [facility] 7 [place] [address] Endocrinology 05/08/20 Josephine Salomon RN [address] [facility] [place] [address] Specialty Chief Talent Officer Hematology/Oncology 03/04/22 Grace Bess MD [address] [facility] [address] Physician Hematology/Oncology 03/04/22 Greta Wetzel PA-C [address] [facility] [place] [address] Physician Administrator Social Welfare Hematology/Oncology 03/04/22 Software Installer Relationship Specialty Start Date End Date Giovanni Salinas II [address] [place] [address] PCP - General Internal Medicine 11/29/19 [facility] [address] [place] [address] Endocrinology 05/08/20 Josephine Salomon RN [address] [facility] [place] [address] Specialty Chief Talent Officer Hematology/Oncology 03/04/22 Grace Bess MD [address] [place] [address] Physician Hematology/Oncology 03/04/22 Greta Wetzel, PALaurenC [address] [facility] [place] [place] [address] Physician Administrator Social Welfare Hematology/Oncology 03/04/22 Software Installer Relationship Specialty Start Date End Date Giovanni Salinas II [address] [place] [address] PCP - General Internal Medicine 11/29/19 César Leiva [address] [place] [address] [place] [address] Endocrinology 05/08/20 Josephine Salomon RN [address] [facility] [place] [address] Specialty Chief Talent Officer Hematology/Oncology 03/04/22 Grace Bess MD [address] [facility] [place] [address] Physician Hematology/Oncology 03/04/22 Greta Wetzel PA-C [address] [facility] [place] [address] Physician Administrator Social Welfare Hematology/Oncology 03/04/22 Software Installer Relationship Specialty Start Date End Date Giovanni Salinas Raul II [address] [place] [address] PCP - General Internal Medicine 11/29/19 [facility] [address] [place] [address] Endocrinology 05/08/20 Josephine Salomon RN [address] [facility] [place] [address] Specialty Chief Talent Officer Hematology/Oncology 03/04/22 Grace Bess MD [address] [place] [address] Physician Hematology/Oncology 03/04/22 Greta Wetzel PA-C [address] [facility] [place] [address] Physician Administrator Social Welfare Hematology/Oncology 03/04/22 Software Installer Relationship Specialty Start Date End Date SalinasGiovanni II [address] [place] [address] PCP - General Internal Medicine 11/29/19 Cali ailyn Firjanel [address] [place] [address] Endocrinology 05/08/20 Josephine Salomon RN [address] [facility] [place] [address] Specialty Chief Talent Officer Hematology/Oncology 03/04/22 Grace Bess MD [address] [facility] [place] [address] Physician Hematology/Oncology 03/04/22 Greta Wetzel PA-C [address] [facility] [place] [address] Physician Administrator Social Welfare Hematology/Oncology 03/04/22 Software Installer Relationship Specialty Start Date End Date Salinas Giovanni B II [address] [place] [address] PCP - General Internal Medicine 11/29/19 [facility] Fir [address] [place] [address] Endocrinology 05/08/20 Josephine Salomon RN [address] [facility] [place] [address] Specialty Chief Talent Officer Hematology/Oncology 03/04/22 Grace Bess MD [address] [place] [address] Physician Hematology/Oncology 03/04/22 Greta Wetzel PA-C [address] [facility] [place] [address] Physician Administrator Social Welfare Hematology/Oncology 03/04/22 Software Installer Relationship Specialty Start Date End Date Giovanni Salinas II [address] [place] [address] PCP - General Internal Medicine 11/29/19 [facility] [address] [place] [address] Endocrinology 05/08/20 Josephine Salomon RN [address] [facility] [place] [address] Specialty Chief Talent Officer Hematology/Oncology 03/04/22 Grace Bess MD [address] [place] [address] Physician Hematology/Oncology 03/04/22 Greta Wetzel PA-C [address] [facility] [place] [address] Physician Administrator Social Welfare Hematology/Oncology 03/04/22 Software Installer Relationship Specialty Start Date End Date Giovanni Salinas II [address] [facility] [address] [place] [address] PCP - General Internal Medicine 11/29/19 César Leiva Firas [address] [place] [address] Endocrinology 05/08/20 Josephine Salomon RN [address] [facility] [place] [address] Specialty Chief Talent Officer Hematology/Oncology 03/04/22 Grace Bess MD [address] [place] [address] Physician Hematology/Oncology 03/04/22 Greta Wetzel PA-C [address] [facility] [place] [address] Physician Administrator Social Welfare Hematology/Oncology 03/04/22 Software Installer Relationship Specialty Start Date End Date Giovanni Salinas II [address] [facility] [address] [place] [address] PCP - General Internal Medicine 11/29/19 César Leiva Firas [address] [place] [address] Endocrinology 05/08/20 Josephine Salomon RN [address] [facility] [place] [address] Specialty Chief Talent Officer Hematology/Oncology 03/04/22 Grace Bess MD [address] [place] [address] Physician Hematology/Oncology 03/04/22 Greta Wetzel PA-C [address] [facility] [place] [address] Physician Administrator Social Welfare Hematology/Oncology 03/04/22 Software Installer Relationship Specialty Start Date End Date Giovanni Salinas II [address] [facility] [address] [place] [address] PCP - General Internal Medicine 11/29/19 César Leiva [address] [place] [address] Endocrinology 05/08/20 Josephine Salomon RN [address] [facility] [place] [address] Specialty Chief Talent Officer Hematology/Oncology 03/04/22 Grace Bess MD [address] [facility] [place] [address] Physician Hematology/Oncology 03/04/22 Greta Wetzel PA-C [address] [facility] [place] [address] Physician Administrator Social Welfare Hematology/Oncology 03/04/22 Software Installer Relationship Specialty Start Date End Date Giovanni Salinas II [address] [facility] [address] [place] [address] PCP - General Internal Medicine 11/29/19 César Leiva [address] [place] [address] Endocrinology 05/08/20 Josephine Salomon RN [address] [facility] [place] [address] Specialty Chief Talent Officer Hematology/Oncology 03/04/22 Grace Bess MD [address] [place] [address] Physician Hematology/Oncology 03/04/22 Greta Wetzel PA-C [address] [facility] [address] Physician Administrator Social Welfare Hematology/Oncology 03/04/22 Software Installer Relationship Specialty Start Date End Date Giovanni Salinas II [address] [facility] [address] [place] [address] PCP - General Internal Medicine 11/29/19 César Leiva [address] [place] [address] Endocrinology 05/08/20 Josephine Salomon RN [address] [facility] [place] [address] Specialty Chief Talent Officer Hematology/Oncology 03/04/22 Grace Bess MD [address] [place] [address] Physician Hematology/Oncology 03/04/22 Greta Wetzel PA-C [address] [place] [address] Physician Administrator Social Welfare Hematology/Oncology 03/04/22 Software Installer Relationship Specialty Start Date End Date Giovanni Salinas II [address] [facility] [address] [place] [address] PCP - General Internal Medicine 11/29/19 César Leiva [address] [place] [address] Endocrinology 05/08/20 Josephine Salomon RN [address] [facility] [place] [address] Specialty Chief Talent Officer Hematology/Oncology 03/04/22 Grace Bess MD [address] [place] [address] Physician Hematology/Oncology 03/04/22 Greta Wetzel PA-C [address] [facility] [place] [address] Physician Administrator Social Welfare Hematology/Oncology 03/04/22 Software Installer Relationship Specialty Start Date End Date Giovanni Salinas II [address] [place] [address] PCP - General Internal Medicine 11/29/19 César Leiva [address] [place] [address] Endocrinology 05/08/20 Josephine Salomon RN [address] [facility] [place] [address] Specialty Chief Talent Officer Hematology/Oncology 03/04/22 Grace Bess MD [address] [facility] [address] Physician Hematology/Oncology 03/04/22 Greta Wetzel PA-C [address] [facility] [place] [address] Physician Administrator Social Welfare Hematology/Oncology 03/04/22 Software Installer Relationship Specialty Start Date End Date Giovanni Salinas II [address] [place] [address] PCP - General Internal Medicine 11/29/19 César Leiva [address] [place] [address] Endocrinology 05/08/20 Josephine Salomon RN [address] [facility] [place] [address] Specialty Chief Talent Officer Hematology/Oncology 03/04/22 Grace Bess MD [address] [place] [address] Physician Hematology/Oncology 03/04/22 Greta Wetzel PA-C [address] [facility] [place] [address] Physician Administrator Social Welfare Hematology/Oncology 03/04/22 Software Installer Relationship Specialty Start Date End Date Giovanni Salinas II [address] [place] [address] PCP - General Internal Medicine 11/29/19 César Leiva MD [address] [place] [address] Endocrinology 05/08/20 Josephine Salomon RN [address] [facility] [place] [address] Specialty Chief Talent Officer Hematology/Oncology 03/04/22 Grace Bess MD [address] [place] [address] Physician Hematology/Oncology 03/04/22 Greta Wetzel PA-C [address] [facility] [place] [address] Physician Administrator Social Welfare Hematology/Oncology 03/04/22 Software Installer Relationship Specialty Start Date End Date Giovanni Salinas II [address] [place] [address] PCP - General Internal Medicine 11/29/19 César Leiva MD [address] [place] [address] Endocrinology 05/08/20 Josephine Salomon RN [address] [place] [address] Specialty Chief Talent Officer Hematology/Oncology 03/04/22 Grace Bess MD [address] [place] [address] Physician Hematology/Oncology 03/04/22 Greta Wetzel, PALaurenC [address] [place] [address] [place] [address] Physician Administrator Social Welfare Hematology/Oncology 03/04/22 Software Installer Relationship Specialty Start Date End Date Giovanni Salinas II [address] [place] [address] PCP - General Internal Medicine 11/29/19 César Leiva MD [address] [place] [address] Endocrinology 05/08/20 Josephine Salomon RN [address] [facility] [place] [address] Specialty Chief Talent Officer Hematology/Oncology 03/04/22 rGace Bess MD [address] [place] [address] Physician Hematology/Oncology 03/04/22 Greta Wetzel PA-C [address] [facility] [place] [address] Physician Administrator Social Welfare Hematology/Oncology 03/04/22 Software Installer Relationship Specialty Start Date End Date Giovanni Salinas II [address] [place] [address] PCP - General Internal Medicine 11/29/19 César Leiva MD [address] [place] [address] Endocrinology 05/08/20 Josephine Salomon RN [address] [facility] [place] [address] Specialty Chief Talent Officer Hematology/Oncology 03/04/22 Grace Bess MD [address] [place] [address] Physician Hematology/Oncology 03/04/22 Greta Wetzel PA-C [address] [facility] [place] [address] Physician Administrator Social Welfare Hematology/Oncology 03/04/22 Software Installer Relationship Specialty Start Date End Date Giovanni Salinas II [address] [place] [address] PCP - General Internal Medicine 11/29/19 César Leiva MD [address] [place] [address] Endocrinology 05/08/20 Josephine Salomon RN [address] [facility] [address] [place] [address] Specialty Chief Talent Officer Hematology/Oncology 03/04/22 Grace Bess MD [address] [place] [address] Physician Hematology/Oncology 03/04/22 Greta Wetzel PA-C [address] [place] [address] Physician Administrator Social Welfare Hematology/Oncology 03/04/22 Software Installer Relationship Specialty Start Date End Date Giovanni Salinas II [address] [place] [address] PCP - General Internal Medicine 11/29/19 César Leiva MD [address] [place] [address] Endocrinology 05/08/20 Josephine Salomon RN [address] [place] [address] Specialty Chief Talent Officer Hematology/Oncology 03/04/22 Grace Bess MD [address] [place] [address] Physician Hematology/Oncology 03/04/22 Greta Wetzel PA-C [address] [place] [address] Physician Administrator Social Welfare Hematology/Oncology 03/04/22 Software Installer Relationship Specialty Start Date End Date Giovanni Salinas II [address] [place] [address] PCP - General Internal Medicine 11/29/19 César Leiva MD [address] [place] [address] Endocrinology 05/08/20 Josephine Salomon RN [address] [place] [address] Specialty Chief Talent Officer Hematology/Oncology 03/04/22 Grace Bess MD [address] [place] [address] Physician Hematology/Oncology 03/04/22 Greta Wetzel PA-C [address] [place] [address] Physician Administrator Social Welfare Hematology/Oncology 03/04/22 Software Installer Relationship Specialty Start Date End Date Giovanni Salinas II [address] [place] [address] PCP - General Internal Medicine 11/29/19 César Leiva MD [address] [place] [address] Endocrinology 05/08/20 Josephine Salomon RN [address] [place] [address] Specialty Chief Talent Officer Hematology/Oncology 03/04/22 Grace Bess MD [address] [place] [address] Physician Hematology/Oncology 03/04/22 Greta Wetzel PA-C [address] [place] [address] Physician Administrator Social Welfare Hematology/Oncology 03/04/22 Software Installer Relationship Specialty Start Date End Date Giovanni Salinas II [address] [place] [address] PCP - General Internal Medicine 11/29/19 César Leiva MD [address] [place] [address] Endocrinology 05/08/20 Josephine Salomon RN [address] [place] [address] Specialty Chief Talent Officer Hematology/Oncology 03/04/22 Grace Bess MD [address] [place] [address] Physician Hematology/Oncology 03/04/22 Greta Wetzel PA-C [address] [place] [address] Physician Administrator Social Welfare Hematology/Oncology 03/04/22 Software Installer Relationship Specialty Start Date End Date Giovanni Salinas II [address] [place] [address] PCP - General Internal Medicine 11/29/19 César Leiva MD [address] [place] [address] Endocrinology 05/08/20 Josephine Salomon, RN [address] [place] [address] Specialty Chief Talent Officer Hematology/Oncology 03/04/22 Grace Bess MD [address] [place] [address] Physician Hematology/Oncology 03/04/22 Greta Wetzel PA-C [address] [place] [address] Physician Administrator Social Welfare Hematology/Oncology 03/04/22 Software Installer Relationship Specialty Start Date End Date Giovanni Salinas II [address] [address] PCP - General Internal Medicine 11/29/19 César Leiva MD [address] [place] [address] Endocrinology 05/08/20 Josephine Salomon RN [address] [place] [address] Specialty Chief Talent Officer Hematology/Oncology 03/04/22 Grace Bess MD [address] [place] [address] [place] [address] Physician Hematology/Oncology 03/04/22 Greta Wetzel PA-C [address] [place] [address] Physician Administrator Social Welfare Hematology/Oncology 03/04/22 Software Installer Relationship Specialty Start Date End Date Giovanni Salinas II [address] [place] [address] PCP - General Internal Medicine 11/29/19 César Leiva MD [address] [place] [address] Endocrinology 05/08/20 Josephine Salomon RN [address] [facility] [place] [address] Specialty Chief Talent Officer Hematology/Oncology 03/04/22 Grace Bess MD [address] [place] [address] Physician Hematology/Oncology 03/04/22 Greta Wetzel PA-C [address] [place] [address] Physician Administrator Social Welfare Hematology/Oncology 03/04/22 Software Installer Relationship Specialty Start Date End Date SalinasGiovanni Raul MARTIN [address] [facility] [address] [place] [address] PCP - General Internal Medicine 11/29/19 César Leiva MD [address] [place] [address] Endocrinology 05/08/20 Josephine Salomon RN [address] [facility] [place] [address] Specialty Chief Talent Officer Hematology/Oncology 03/04/22 Grace Bess MD [address] [facility] [place] [address] Physician Hematology/Oncology 03/04/22 Great Wetzel PA-C [address] [facility] [place] [address] Physician Administrator Social Welfare Hematology/Oncology 03/04/22 Software Installer Relationship Specialty Start Date End Date Giovanni Salinas II [address] [facility] [address] [place] [address] PCP - General Internal Medicine 11/29/19 César Leiva MD [address] [place] [address] Endocrinology 05/08/20 Josephine Salomon RN [address] [facility] [place] [address] Specialty Chief Talent Officer Hematology/Oncology 03/04/22 Grace Bess MD [address] [facility] [place] [address] Physician Hematology/Oncology 03/04/22 Greta Wetzel PA-C [address] [facility] [place] [address] Physician Administrator Social Welfare Hematology/Oncology 03/04/22 Software Installer Relationship Specialty Start Date End Date Giovanni Salinas II [address] [facility] [address] [place] [address] PCP - General Internal Medicine 11/29/19 César Leiva MD [address] [place] [address] Endocrinology 05/08/20 Josephine Salomon RN [address] [facility] [place] [address] Specialty Chief Talent Officer Hematology/Oncology 03/04/22 Grace Bess MD [address] [facility] [address] Physician Hematology/Oncology 03/04/22 Greta Wetzel PA-C [address] [place] [address] Physician Administrator Social Welfare Hematology/Oncology 03/04/22 Software Installer Relationship Specialty Start Date End Date Giovanni Salinas II [address] [place] [address] PCP - General Internal Medicine 11/29/19 César Leiva MD [address] [place] [address] Endocrinology 05/08/20 Josephine Salomon, RN [address] [facility] [place] [address] Specialty Chief Talent Officer Hematology/Oncology 03/04/22 Grace Bess MD [address] [facility] [place] [address] Physician Hematology/Oncology 03/04/22 Greta Wetzel PA-C [address] [facility] [place] [address] Physician Administrator Social Welfare Hematology/Oncology 03/04/22 Software Installer Relationship Specialty Start Date End Date Giovanni Salinas II [address] [place] [address] PCP - General Internal Medicine 11/29/19 César Leiva MD [address] [place] [address] Endocrinology 05/08/20 Josephine Salomon RN [address] [facility] [place] [address] Specialty Chief Talent Officer Hematology/Oncology 03/04/22 Grace Bess MD [address] [facility] [place] [address] Physician Hematology/Oncology 03/04/22 Greta Wetzel PA-C [address] [place] [address] [place] [address] Physician Administrator Social Welfare Hematology/Oncology 03/04/22 Team Status: Active Member Role Status Dates Giovanni Salinas II MD Primary Care Provider Active Team Status: Inactive Member Role Status Dates Giovanni Salinas II MD Primary Care Provider Active Jemma Padilla APRN Emergency Provider Active Software Installer Relationship Specialty Start Date End Date Giovanni Salinas II [address] [facility] [address] [place] [address] PCP - General Internal Medicine 11/29/19 César Leiva MD [address] [place] [address] Endocrinology 05/08/20 Josephine Salomon RN [address] [place] [address] Specialty Chief Talent Officer Hematology/Oncology 03/04/22 Grace Bess MD [address] [place] [address] [place] [address] Physician Hematology/Oncology 03/04/22 Greta Wetzel PA-C [address] [place] [address] [place] [address] Physician Administrator Social Welfare Hematology/Oncology 03/04/22 Software Installer Relationship Specialty Start Date End Date Giovanni Salinas II [address] [facility] [address] [place] [address] PCP - General Internal Medicine 11/29/19 César Leiva MD [address] [place] [address] Endocrinology 05/08/20 Josephine Salomon RN [address] [place] [address] Specialty Chief Talent Officer Hematology/Oncology 03/04/22 Grace Bess MD [address] [place] [address] [place] [address] Physician Hematology/Oncology 03/04/22 Greta Wetzel PA-C [address] [place] [address] Physician Administrator Social Welfare Hematology/Oncology 03/04/22 Software Installer Relationship Specialty Start Date End Date Giovanni Salinas II, MD [address] [facility] [address] [place] [address] PCP - General Internal Medicine 11/29/19 César Leiva MD [address] [place] [address] Endocrinology 05/08/20 Josephine Salomon RN [address] [place], [place] [address] Specialty Chief Talent Officer Hematology/Oncology 03/04/22 Grace Bess MD [address] [facility] [place] [address] Physician Hematology/Oncology 03/04/22 Greta Wetzel PA-C [address] [facility] [place] [address] Physician Administrator Social Welfare Hematology/Oncology 03/04/22 Software Installer Relationship Specialty Start Date End Date Giovanni Salinas II, MD [address] [place] [address] PCP - General Internal Medicine 11/29/19 César Lieva MD [address] [place] [address] Endocrinology 05/08/20 Josephine Salomon, RN [address] [facility] [place] [address] Specialty Chief Talent Officer Hematology/Oncology 03/04/22 Grace Bess MD [address] [facility] [place] [address] Physician Hematology/Oncology 03/04/22 Greta Wetzel PA-C [address] [facility] [place] [address] Physician Administrator Social Welfare Hematology/Oncology 03/04/22 Software Installer Relationship Specialty Start Date End Date Giovanni Salinas II, MD [address] [place] [address] PCP - General Internal Medicine 11/29/19 César Leiva MD [address] [place] [address] Endocrinology 05/08/20 Josephine Salomon RN [address] [place] [address] Specialty Chief Talent Officer Hematology/Oncology 03/04/22 Grace Bess MD [address] [facility] [place] [address] Physician Hematology/Oncology 03/04/22 Greta Wetzel PA-C [address] [place] [address] [place] [address] Physician Administrator Social Welfare Hematology/Oncology 03/04/22 Software Installer Relationship Specialty Start Date End Date Giovanni Salinas II, MD [address] [address] PCP - General Internal Medicine 11/29/19 César Leiva MD [address] [place] [address] Endocrinology 05/08/20 Josephine Salomon RN [address] [place] [address] Specialty Chief Talent Officer Hematology/Oncology 03/04/22 Grace Bess MD [address] [place] [address] [place] [address] Physician Hematology/Oncology 03/04/22 Greta Wetzel PA-C [address] [place] [address] [place] [address] Physician Administrator Social Welfare Hematology/Oncology 03/04/22 Software Installer Relationship Specialty Start Date End Date Giovanni Salinas II, MD [address] [place] [address] PCP - General Internal Medicine 11/29/19 César Leiva MD [address] [place] [address] Endocrinology 05/08/20 Josephine Salomon, RN [address] [facility] [place] [address] Specialty Chief Talent Officer Hematology/Oncology 03/04/22 Grace Bess MD [address] [place] [address] Physician Hematology/Oncology 03/04/22 Greta Wetzel PA-C [address] [place] [address] [place] [address] Physician Administrator Social Welfare Hematology/Oncology 03/04/22 Software Installer Relationship Specialty Start Date End Date Giovanni Salinas II, MD [address] [place] [address] PCP - General Internal Medicine 11/29/19 César Leiva MD [address] [place] [address] Endocrinology 05/08/20 Josephine Salomon RN [address] [facility] [place] [address] Specialty Chief Talent Officer Hematology/Oncology 03/04/22 Grace Bess MD [address] [facility] [address] Physician Hematology/Oncology 03/04/22 Greta Wetzel PA-C [address] [facility] [place] [address] Physician Administrator Social Welfare Hematology/Oncology 03/04/22 Software Installer Relationship Specialty Start Date End Date Giovanni Salinas II, MD [address] [place] [address] PCP - General Internal Medicine 11/29/19 César Leiva MD [address] [place] [address] Endocrinology 05/08/20 Josephine Salomon RN [address] [facility] [place] [address] Specialty Chief Talent Officer Hematology/Oncology 03/04/22 Grace Bess MD [address] [facility] [place] [address] Physician Hematology/Oncology 03/04/22 Greta Wetzel PA-C [address] [facility] [place] [address] Physician Administrator Social Welfare Hematology/Oncology 03/04/22 Software Installer Relationship Specialty Start Date End Date Giovanni Salinas II, MD [address] [facility] [address] [place] [address] PCP - General Internal Medicine 11/29/19 César Leiva MD [address] [place] [address] Endocrinology 05/08/20 Josephine Salomon RN [address] [facility] [place] [address] Specialty Chief Talent Officer Hematology/Oncology 03/04/22 Grace Bess MD [address] [place] [address] Physician Hematology/Oncology 03/04/22 Greta Wetzel PA-C [address] [place] [address] Physician Administrator Social Welfare Hematology/Oncology 03/04/22 Software Installer Relationship Specialty Start Date End Date Giovanni Salinas II, MD [address] [place] [address] PCP - General Internal Medicine 11/29/19 Cés[place] [address] [place] [address] [address] [place] [id number] Endocrinology 05/08/20 Josephine Salomon, LUIS ANTONIO [address] [place] [address] Specialty Chief Talent Officer Hematology/Oncology 03/04/22 Grace Bess MD [address] [place] [address] Physician Hematology/Oncology 03/04/22 Greta Wetzel PA-C [address] [place] [address] Physician Administrator Social Welfare Hematology/Oncology 03/04/22 Software Installer Relationship Specialty Start Date End Date Giovanni Salinas II, MD [address] [place] [address] PCP - General Internal Medicine 11/29/19 César Leiva MD [address] [place] [address] Endocrinology 05/08/20 Josephine Salomon, RN [address] [facility] [place] [address] Specialty Chief Talent Officer Hematology/Oncology 03/04/22 Grace Bess MD [address] [facility] [place] [address] Physician Hematology/Oncology 03/04/22 Greta Wetzel PA-C [address] [place] [address] [place] [address] Physician Administrator Social Welfare Hematology/Oncology 03/04/22 Software Installer Relationship Specialty Start Date End Date Giovanni Salinas II, MD [address] [facility] [address] [place] [address] PCP - General Internal Medicine 11/29/19 César Leiva MD [address] [place] [address] Endocrinology 05/08/20 Josephine Salomon RN [address] [facility] [place] [address] Specialty Chief Talent Officer Hematology/Oncology 03/04/22 Grace Bess MD [address] [facility] [place] [address] Physician Hematology/Oncology 03/04/22 Greta Wetzel PA-C [address] [place] [address] Physician Administrator Social Welfare Hematology/Oncology 03/04/22 Software Installer Relationship Specialty Start Date End Date Giovanni Salinas II, MD [address] [place] [address] PCP - General Internal Medicine 11/29/19 César Leiva MD [address] [place] [address] Endocrinology 05/08/20 Josephine Salomon, RN [address] [facility] [place] [address] Specialty Chief Talent Officer Hematology/Oncology 03/04/22 Grace Bess MD [address] [facility] [facility] [place] [address] Physician Hematology/Oncology 03/04/22 Greta Wetzel PA-C [address] [facility] [place] [address] Physician Administrator Social Welfare Hematology/Oncology 03/04/22 Software Installer Relationship Specialty Start Date End Date Giovanni Sailnas II, MD [address] [place] [address] PCP - General Internal Medicine 11/29/19 César Leiva MD [address] [place] [address] Endocrinology 05/08/20 Josephine Salomon, RN [address] [facility] [address] [place], [place] [address] Specialty Chief Talent Officer Hematology/Oncology 03/04/22 Grace Bess MD [address] [facility] [facility] [place] [address] Physician Hematology/Oncology 03/04/22 Greta Wetzel PA-C [address] [place] [address] [place] [address] Physician Administrator Social Welfare Hematology/Oncology 03/04/22 Software Installer Relationship Specialty Start Date End Date Giovanni Salinas II, MD [address] [place] [address] PCP - General Internal Medicine 11/29/19 César Leiva MD [address] [place] [address] Endocrinology 05/08/20 Josephine Salomon, RN [address] [facility] [place] [address] Specialty Chief Talent Officer Hematology/Oncology 03/04/22 Grace Bess MD [address] [facility] [place] [address] Physician Hematology/Oncology 03/04/22 Greta Wetzel PA-C [address] [place] [address] Physician Administrator Social Welfare Hematology/Oncology 03/04/22 Software Installer Relationship Specialty Start Date End Date Giovanni Salinas II, MD [address] [place] [address] PCP - General Internal Medicine 11/29/19 César Leiva MD [address] [place] [address] Endocrinology 05/08/20 Josephine Salomon RN [address] [place] [address] Specialty Chief Talent Officer Hematology/Oncology 03/04/22 Grace Bess MD [address] [facility] [place] [address] Physician Hematology/Oncology 03/04/22 Greta Wetzel PA-C [address] [place] [address] Physician Administrator Social Welfare Hematology/Oncology 03/04/22 Software Installer Relationship Specialty Start Date End Date Giovanni Salinas II, MD [address] [place] [address] PCP - General Internal Medicine 11/29/19 César Leiva MD [address] [place] [address] [address] [place] [id number] Endocrinology 05/08/20 Josephine Salomon RN [address] [place] [address] Specialty Chief Talent Officer Hematology/Oncology 03/04/22 Grace Bess MD [address] [place] [address] Physician Hematology/Oncology 03/04/22 Greta Wetzel PA-C [address] [place] [address] Physician Administrator Social Welfare Hematology/Oncology 03/04/22 Software Installer Relationship Specialty Start Date End Date Giovanni Salinas II, MD [address] [place] [address] PCP - General Internal Medicine 11/29/19 César Leiva MD [address] [place] [address] Endocrinology 05/08/20 Josephine Salomon, LUIS ANTONIO [address] [facility] [place] [address] Specialty Chief Talent Officer Hematology/Oncology 03/04/22 Grace Bess MD [address] [facility] [place] [address] Physician Hematology/Oncology 03/04/22 Greta Wetzel PA-C [address] [facility] [place] [address] Physician Administrator Social Welfare Hematology/Oncology 03/04/22 Software Installer Relationship Specialty Start Date End Date Giovanni Salinas II, MD [address] [facility] [address] [place] [address] PCP - General Internal Medicine 11/29/19 César Leiva MD [address] [place] [address] Endocrinology 05/08/20 Josephine Salomon, LUIS ANTONIO [address] [facility] [place] [address] Specialty Chief Talent Officer Hematology/Oncology 03/04/22 Grace Bess MD [address] [facility] [place] [address] Physician Hematology/Oncology 03/04/22 Greta Wetzel PA-C [address] [facility] [address] [place], [place] [address] Physician Administrator Social Welfare Hematology/Oncology 03/04/22 Software Installer Relationship Specialty Start Date End Date Giovanni Salinas II, MD [address] [place] [address] PCP - General Internal Medicine 11/29/19 César Leiva MD [address] [place] [address] Endocrinology 05/08/20 Josephine Salomon RN [address] [facility] [place] [address] Specialty Chief Talent Officer Hematology/Oncology 03/04/22 Grace Bess MD [address] [facility] [place] [address] Physician Hematology/Oncology 03/04/22 Greta Wetzel PA-C [address] [facility] [place] [address] Physician Administrator Social Welfare Hematology/Oncology 03/04/[address] [facility] [place] [address] Registered Dietitian Nutrition 06/07/23 Software Installer Relationship Specialty Start Date End Date Giovanni Salinas II, MD [address] [place] [address] PCP - General Internal Medicine 11/29/19 César Leiva MD [address] [place] [address] Endocrinology 05/08/20 Josephine Salomon RN [address] [place] [address] Specialty Chief Talent Officer Hematology/Oncology 03/04/22 Grace Bess MD 417 [facility] [place] [address] Physician Hematology/Oncology 03/04/22 Greta Wetzel PA-C [address] [place] [address] [place] [address] Physician Administrator Social Welfare Hematology/Oncology 03/04/[address] [place] [address] [place] [address] Registered Dietitian Nutrition 06/07/23 Software Installer Relationship Specialty Start Date End Date Giovanni Salinas II, MD [address] [facility] [address] [place] [address] PCP - General Internal Medicine 11/29/19 César Leiva MD [address] [facility] [address] [place] [address] Endocrinology 05/08/20 Josephine Salomon RN [address] [place] [address] Specialty Chief Talent Officer Hematology/Oncology 03/04/22 Grace Bess MD [address] [place] [address] [place] [address] Physician Hematology/Oncology 03/04/22 Greta Wetzel PA-C [address] [place] [address] [place] [address] Physician Administrator Social Welfare Hematology/Oncology 03/04/[address] [place] [address] [place] [address] Registered Dietitian Nutrition 06/07/23 Software Installer Relationship Specialty Start Date End Date Giovanni Salinas II, MD [address] [place] [address] PCP - General Internal Medicine 11/29/19 César Leiva MD [address] [facility] 7 [place] [address] Endocrinology 05/08/20 Josephine Salomon, RN [address] [facility] [place], [place] [id number] Specialty Chief Talent Officer Hematology/Oncology 03/04/22 Grace Bess MD [address] [place] [address] [place] [address] Physician Hematology/Oncology 03/04/22 Greta Wetzel PA-C [address] [place] [address] [place] [address] Physician Administrator Social Welfare Hematology/Oncology 03/04/[address] [place] [address] [place] [address] Registered Dietitian Nutrition 06/07/23 Software Installer Relationship Specialty Start Date End Date Giovanni Salinas MD [address] [place] [address] PCP - ACO Reach 10/13/22 Giovanni Salinas MD [address] [place] [address] PCP - General Internal Medicine 10/20/22 Software Installer Relationship Specialty Start Date End Date Giovanni Salinas II, MD [address] [place] [address] PCP - General Internal Medicine 11/29/19 César Leiva MD [address] [place] [address] Endocrinology 05/08/20 Josephine Salomon, RN [address] [facility] [place] [address] Specialty Chief Talent Officer Hematology/Oncology 03/04/22 Garce Bess MD [address] [facility] [place] [address] Physician Hematology/Oncology 03/04/22 Greta Wetzel PA-C [address] [facility] [place] [address] Physician Administrator Social Welfare Hematology/Oncology 03/04/[address] [place] [address] Registered Dietitian Nutrition 06/07/23 Software Installer Relationship Specialty Start Date End Date Giovanni Salinas II, MD [address] [facility] [address] [place] [address] PCP - General Internal Medicine 11/29/19 César Leiva MD [address] [place] [address] Endocrinology 05/08/20 Josephine Salomon, RN [address] [facility] [place] [address] Specialty Chief Talent Officer Hematology/Oncology 03/04/22 Grace Bess MD [address] [facility] [place] [address] Physician Hematology/Oncology 03/04/22 Greta Wetzel PA-C [address] [place] [address] Physician Administrator Social Welfare Hematology/Oncology 03/04/[address] [place] [address] Registered Dietitian Nutrition 06/07/23 Software Installer Relationship Specialty Start Date End Date Giovanni Salinas II, MD [address] [facility] 110 [place] [address] PCP - General Internal Medicine 11/29/19 César Leiva MD [facility] 7 [place] [address] Endocrinology 05/08/20 Josephine Salomon, RN [address] [facility] [place] [address] Specialty Chief Talent Officer Hematology/Oncology 03/04/22 Grace Bess MD 417 [facility] [place] [address] Physician Hematology/Oncology 03/04/22 Greta Wetzel PA-C [address] [place] [address] Physician Administrator Social Welfare Hematology/Oncology 03/04/[address] [place] [address] Registered Dietitian Nutrition 06/07/23 Software Installer Relationship Specialty Start Date End Date Giovanni Salinas II, MD [address] [place] [address] PCP - General Internal Medicine 11/29/19 César Leiva MD [address] [place] [address] Endocrinology 05/08/20 Josephine Salomon, LUIS ANTONIO [address] [place] [address] Specialty Chief Talent Officer Hematology/Oncology 03/04/22 Grace Bess MD [address] [facility] [place] [address] Physician Hematology/Oncology 03/04/22 Greta Wetzel PA-C [address] [place] [address] [place] [address] Physician Administrator Social Welfare Hematology/Oncology 03/04/[address] [place] [address] [place] [address] Registered Dietitian Nutrition 06/07/23 Software Installer Relationship Specialty Start Date End Date Giovanni Salinas II, MD [address] [facility] [address] [place] [address] PCP - General Internal Medicine 11/29/19 César Leiva MD [address] [place] [address] Endocrinology 05/08/20 Josephine Salomon, LUIS ANTONIO [address] [place] [address] Specialty Chief Talent Officer Hematology/Oncology 03/04/22 Grace Bess MD [address] [facility] [place] [address] Physician Hematology/Oncology 03/04/22 Greta Wetzel PA-C [address] [place] [address] Physician Administrator Social Welfare Hematology/Oncology 03/04/[address] [place] [address] Registered Dietitian Nutrition 06/07/23 Software Installer Relationship Specialty Start Date End Date Giovanni Salinas II, MD [address] [facility] [address] [place] [address] PCP - General Internal Medicine 11/29/19 César Leiva MD [address] [place] [address] Endocrinology 05/08/20 Josephine Salomon, RN [address] [place] [address] Specialty Chief Talent Officer Hematology/Oncology 03/04/22 Grace Bess MD [address] [facility] [place] [address] Physician Hematology/Oncology 03/04/22 Greta Wetzel PA-C [address] [place] [address] Physician Administrator Social Welfare Hematology/Oncology 03/04/[address] [place] [address] Registered Dietitian Nutrition 06/07/23 Software Installer Relationship Specialty Start Date End Date Giovanni Salinas II, MD [address] [place] [address] PCP - General Internal Medicine 11/29/19 César Leiva MD [address] [place] [address] Endocrinology 05/08/20 Josephine Salomon, RN [address] [facility] [address] [place], [place] [address] Specialty Chief Talent Officer Hematology/Oncology 03/04/22 Grace Bess MD 417 [facility] [place] [address] Physician Hematology/Oncology 03/04/22 Greta Wetzel PA-C [address] [place] [address] [place] [address] Physician Administrator Social Welfare Hematology/Oncology 03/04/[address] [place] [address] [place] [address] Registered Dietitian Nutrition 06/07/23 Software Installer Relationship Specialty Start Date End Date Giovanni Salinas II, MD [address] [facility] [address] [place] [address] PCP - General Internal Medicine 11/29/19 César Leiva MD [address] [place] [address] Endocrinology 05/08/20 Josephine Salomon, RN [address] [facility] [place] [address] Specialty Chief Talent Officer Hematology/Oncology 03/04/22 Grace Bess MD 417 [facility] [place] [address] Physician Hematology/Oncology 03/04/22 Greta Wetzel PA-C [address] [place] [address] Physician Administrator Social Welfare Hematology/Oncology 03/04/[address] [place] [address] Registered Dietitian Nutrition 06/07/23 Software Installer Relationship Specialty Start Date End Date Giovanni Salinas II, MD [address] [facility] [address] [place] [address] PCP - General Internal Medicine 11/29/19 César Leiva MD [address] [place] [address] Endocrinology 05/08/20 Josephine Salomon, RN [address] [place] [address] Specialty Chief Talent Officer Hematology/Oncology 03/04/22 Grace Bess MD [address] [facility] [place] [address] Physician Hematology/Oncology 03/04/22 Greta Wetzel PA-C [address] [place] [address] Physician Administrator Social Welfare Hematology/Oncology 03/04/[address] [place] [address] Registered Dietitian Nutrition 06/07/23 Software Installer Relationship Specialty Start Date End Date Giovanni Salinas II, MD [address] [place] [address] PCP - General Internal Medicine 11/29/19 César Leiva MD [address] [place] [address] Endocrinology 05/08/20 Josephine Salomon RN [address] [facility] [place] [address] Specialty Chief Talent Officer Hematology/Oncology 03/04/22 Grace Bess MD [address] [place] [place] [address] Physician Hematology/Oncology 03/04/22 Greta Wetzel PA-C [address] [facility] [place] [address] Physician Administrator Social Welfare Hematology/Oncology 03/04/[address] [facility] [place] [address] Registered Dietitian Nutrition 06/07/23 Software Installer Relationship Specialty Start Date End Date Giovanni Salinas II, MD [address] [facility] [address] [place] [address] PCP - General Internal Medicine 11/29/19 César Leiva MD [address] [place] [address] Endocrinology 05/08/20 Josephine Salomon RN [address] [facility] [place] [address] Specialty Chief Talent Officer Hematology/Oncology 03/04/22 Grace Bess MD 417 [facility] [place] [address] Physician Hematology/Oncology 03/04/22 Greta Wetzel PA-C [address] [facility] [place] [address] Physician Administrator Social Welfare Hematology/Oncology 03/04/[address] [place] [address] [place] [address] Registered Dietitian Nutrition 06/07/23 Software Installer Relationship Specialty Start Date End Date Giovanni Salinas II, MD [address] [facility] [address] [place] [address] PCP - General Internal Medicine 11/29/19 César Leiva MD [address] [place] [address] Endocrinology 05/08/20 Josephine Salomon, RN [address] [facility] [place] [address] Specialty Chief Talent Officer Hematology/Oncology 03/04/22 Grace Bess MD [address] [place] [address] [place] [id number] Physician Hematology/Oncology 03/04/22 Greta Wetzel PA-C [address] [facility] [place] [address] Physician Administrator Social Welfare Hematology/Oncology 03/04/[address] [facility] [place] [address] Registered Dietitian Nutrition 06/07/23 Software Installer Relationship Specialty Start Date End Date Giovanni Salinas II, MD [address] [place] [address] PCP - General Internal Medicine 11/29/19 César Leiva MD [address] [place] [address] Endocrinology 05/08/20 Josephine Salomon RN [address] [facility] [place] [address] Specialty Chief Talent Officer Hematology/Oncology 03/04/22 Grace Bess MD [address] [facility] [place] [address] Physician Hematology/Oncology 03/04/22 Greta Wetzel PA-C [address] [facility] [place] [place] [address] Physician Administrator Social Welfare Hematology/Oncology 03/04/[address] [facility] [place] [address] Registered Dietitian Nutrition 06/07/23 Software Installer Relationship Specialty Start Date End Date Giovanni Salinas II, MD [address] [place] [address] PCP - General Internal Medicine 11/29/19 César Leiva MD [address] [place] [address] Endocrinology 05/08/20 Josephine Salomon RN [address] [facility] [place] [address] Specialty Chief Talent Officer Hematology/Oncology 03/04/22 Grace Bess MD 417 [facility] [place] [address] Physician Hematology/Oncology 03/04/22 Greta Wetzel PA-C [address] [place] [address] [place] [address] Physician Administrator Social Welfare Hematology/Oncology 03/04/[address] [place] [address] [place] [address] Registered Dietitian Nutrition 06/07/23 Software Installer Relationship Specialty Start Date End Date Giovanni Salinas II, MD [address] [facility] [address] [place] [address] PCP - General Internal Medicine 11/29/19 César Leiva MD [address] [facility] 7 [place] [address] Endocrinology 05/08/20 Josephine Salomon, RN [address] [facility] [place] [address] Specialty Chief Talent Officer Hematology/Oncology 03/04/22 Grace Bess MD 417 [facility] [place] [address] Physician Hematology/Oncology 03/04/22 Greta Wetzel PA-C [address] [place] [address] [place] [address] Physician Administrator Social Welfare Hematology/Oncology 03/04/[address] [facility] [place] [address] Registered Dietitian Nutrition 06/07/23 Software Installer Relationship Specialty Start Date End Date Giovanni Salinas II, MD [address] [facility] [address] [place] [address] PCP - General Internal Medicine 11/29/19 César Leiva MD [address] [place] [address] Endocrinology 05/08/20 Josephine Salomon RN [address] [place] [address] Specialty Chief Talent Officer Hematology/Oncology 03/04/22 Grace Bess MD [address] [place] [address] [place] [address] Physician Hematology/Oncology 03/04/22 Greta Wetzel PA-C [address] [facility] [place] [address] Physician Administrator Social Welfare Hematology/Oncology 03/04/[address] [facility] [place] [address] Registered Dietitian Nutrition 06/07/23 Software Installer Relationship Specialty Start Date End Date Giovanni Salinas II, MD [address] [facility] [address] [place] [address] PCP - General Internal Medicine 11/29/19 César Leiva MD [address] [place] [address] Endocrinology 05/08/20 Josephine Salomon RN [address] [place] [address] Specialty Chief Talent Officer Hematology/Oncology 03/04/22 Grace Bess MD 417 [facility] [place] [address] Physician Hematology/Oncology 03/04/22 Greta Wetzel PA-C [address] [place] [address] [place] [address] Physician Administrator Social Welfare Hematology/Oncology 03/04/[address] [place] [address] [place] [address] Registered Dietitian Nutrition 06/07/23 Software Installer Relationship Specialty Start Date End Date Giovanni Salinas II, MD [address] [place] [address] PCP - General Internal Medicine 11/29/19 César Leiva MD 2819 [facility] 7 [place] [address] Endocrinology 05/08/20 Josephine Salomon RN [address] [place] [address] Specialty Chief Talent Officer Hematology/Oncology 03/04/22 Grace Bess MD 417 [facility] [place] [address] Physician Hematology/Oncology 03/04/22 Greta Wetzel PA-C [address] [place] [address] [place] [address] Physician Administrator Social Welfare Hematology/Oncology 03/04/[address] [place] [address] Registered Dietitian Nutrition 06/07/23 Software Installer Relationship Specialty Start Date End Date Giovanni Salinas II, MD [address] [place] [address] PCP - General Internal Medicine 11/29/19 César Leiva MD [address] [place] [address] Endocrinology 05/08/20 Josephine Salomon RN [address] [place] [address] Specialty Chief Talent Officer Hematology/Oncology 03/04/22 Grace Bess MD [address] [place] [address] [place] [address] Physician Hematology/Oncology 03/04/22 Greta Wetzel PA-C [address] [place] [address] [place] [address] Physician Administrator Social Welfare Hematology/Oncology 03/04/[address] [place] [address] [place] [address] Registered Dietitian Nutrition 06/07/23 Software Installer Relationship Specialty Start Date End Date Giovanni Salinas II, MD [address] [place] [address] PCP - General Internal Medicine 11/29/19 César Leiva MD [address] [place] [address] Endocrinology 05/08/20 Josephine Salomon RN [address] [place] [address] Specialty Chief Talent Officer Hematology/Oncology 03/04/22 Greta Wetzel PA-C [address] [place] [address] Physician Administrator Social Welfare Hematology/Oncology 03/04/[address] [place] [address] Registered Dietitian Nutrition 06/07/23 Vivek Smith MD [address] [place] [address] [place] [address] Physician Hematology 12/11/23 Software Installer Relationship Specialty Start Date End Date Giovanni Salinas II, MD [address] [facility] [address] [place] [address] PCP - General Internal Medicine 11/29/19 César Leiva MD 2819 [facility] 7 [place] [address] Endocrinology 05/08/20 Josephine Salomon RN [address] [place] [address] Specialty Chief Talent Officer Hematology/Oncology 03/04/22 Greta Wetzel PA-C [address] [place] [address] Physician Administrator Social Welfare Hematology/Oncology 03/04/[address] [place] [address] Registered Dietitian Nutrition 06/07/23 Vivek Smith MD [address] [place] [address] [place] [address] Physician Hematology 12/11/23 Software Installer Relationship Specialty Start Date End Date Giovanni Salinas II, MD [address] [place] [address] PCP - General Internal Medicine 11/29/19 César Leiva MD [address] [place] [address] Endocrinology 05/08/20 Josephine Salomon, RN [address] [place] [address] Specialty Chief Talent Officer Hematology/Oncology 03/04/22 Greta Wetzel PA-C [address] [place] [address] [place] [address] Physician Administrator Social Welfare Hematology/Oncology 03/04/[address] [place] [address] [place] [address] Registered Dietitian Nutrition 06/07/23 Vivek Smith MD [address] [place] [address] [place] [address] Physician Hematology 12/11/23 Software Installer Relationship Specialty Start Date End Date Giovanni Salinas II, MD [address] [place] [address] PCP - General Internal Medicine 11/29/19 César Leiva MD [address] [place] [address] Endocrinology 05/08/20 Josephine Salomon RN [address] [place] [address] Specialty Chief Talent Officer Hematology/Oncology 03/04/22 Greta Wetzel PA-C [address] [place] [address] Physician Administrator Social Welfare Hematology/Oncology 03/04/[address] [place] [address] Registered Dietitian Nutrition 06/07/23 Vivek Smith MD [address] [place] [address] [place] [address] Physician Hematology 12/11/23 Software Installer Relationship Specialty Start Date End Date Giovanni Salinas II, MD [address] [facility] [address] [place] [address] PCP - General Internal Medicine 11/29/19 César Leiva MD 2819 [facility] 7 [place] [address] Endocrinology 05/08/20 Josephine Salomon RN [address] [place] [address] Specialty Chief Talent Officer Hematology/Oncology 03/04/22 Greta Wetzel PA-C [address] [place] [address] Physician Administrator Social Welfare Hematology/Oncology 03/04/[address] [place] [address] Registered Dietitian Nutrition 06/07/23 Vivek Smith MD [address] [facility] [place] [address] Physician Hematology 12/11/23 Software Installer Relationship Specialty Start Date End Date Giovanni Salinas II, MD [address] [facility] [address] [place] [address] PCP - General Internal Medicine 11/29/19 César Leiva MD [address] [place] [address] Endocrinology 05/08/20 Josephine Salomon RN [address] [facility] [place] [address] Specialty Chief Talent Officer Hematology/Oncology 03/04/22 Greta Wetzel PA-C [address] [place] [address] [place] [address] Physician Administrator Social Welfare Hematology/Oncology 03/04/[address] [place] [address] [place] [address] Registered Dietitian Nutrition 06/07/23 Vivek Smith MD [address] [place] [address] [place] [address] Physician Hematology 12/11/23 Software Installer Relationship Specialty Start Date End Date Giovanni Salinas II, MD [address] [facility] [address] [place] [address] PCP - General Internal Medicine 11/29/19 César Lieva MD [address] [place] [address] Endocrinology 05/08/20 Josephine Salomon RN [address] [place] [address] Specialty Chief Talent Officer Hematology/Oncology 03/04/22 Greta Wetzel PA-C [address] [place] [address] Physician Administrator Social Welfare Hematology/Oncology 03/04/[address] [place] [address] Registered Dietitian Nutrition 06/07/23 Vivek Smith MD [address] [place] [address] [place] [address] Physician Hematology 12/11/23 Software Installer Relationship Specialty Start Date End Date Giovanni Salinas II, MD [address] [facility] [address] [place] [address] PCP - General Internal Medicine 11/29/19 César Leiva MD 2819 [facility] 7 [place] [address] Endocrinology 05/08/20 Josephine Salomon RN [address] [place] [address] Specialty Chief Talent Officer Hematology/Oncology 03/04/22 Greta Wetzel PA-C [address] [place] [address] Physician Administrator Social Welfare Hematology/Oncology 03/04/[address] [place] [address] Registered Dietitian Nutrition 06/07/23 Vivek Smith MD 417 [facility] [place] [id number] Physician Hematology 12/11/23 Software Installer Relationship Specialty Start Date End Date Giovanni Salinas II, MD [address] [place] [address] PCP - General Internal Medicine 11/29/19 César Leiva MD [address] [place] [address] Endocrinology 05/08/20 Josephine Salomon RN [address] [facility] [place] [address] Specialty Chief Talent Officer Hematology/Oncology 03/04/22 Greta Wetzel PA-C [facility] [address] [place] [address]337170 Physician Administrator Social Welfare Hematology/Oncology 03/04/[address] [facility] [address] [place] [address]337170 Registered Dietitian Nutrition 06/07/23 Vivek Smith MD [address] [facility] [place] [address] Physician Hematology 12/11/23 Software Installer Relationship Specialty Start Date End Date Giovanni Salinas II, MD [address] [place] [address] PCP - General Internal Medicine 11/29/19 César Leiva MD [address] [place] [address] Endocrinology 05/08/20 Josephine Salomon RN [address] [place] [address] Specialty Chief Talent Officer Hematology/Oncology 03/04/22 Greta Wetzel PA-C [address] [place] [address] Physician Administrator Social Welfare Hematology/Oncology 03/04/[address] [facility] [address] [place], [place] [id number] Registered Dietitian Nutrition 06/07/23 Vivek Smith MD [address] [place] [address] [place] [address] Physician Hematology 12/11/23 Software Installer Relationship Specialty Start Date End Date Giovanni Salinas II, MD [address] [facility] [address] [place] [address] PCP - General Internal Medicine 11/29/19 César Leiva MD 2819 [facility] [address] [place] [address] Endocrinology 05/08/20 Josephine Salomon RN [address] [place] [address] Specialty Chief Talent Officer Hematology/Oncology 03/04/22 Greta Wetezl PA-C [address] [facility] [address] [place] [id number] Physician Administrator Social Welfare Hematology/Oncology 03/04/[address] [place] [address] Registered Dietitian Nutrition 06/07/23 Vivek Smith MD [address] [place] [address] [place] [address] Physician Hematology 12/11/23 Software Installer Relationship Specialty Start Date End Date Giovanni Salinas II, MD [address] [place] [place] [address] PCP - General Internal Medicine 11/29/19 César Leiva MD [address] [place] [address] Endocrinology 05/08/20 Josephine Salomon RN [address] [facility] [address] [place], [facility]70 Specialty Chief Talent Officer Hematology/Oncology 03/04/22 Greta Wetzel PA-C [address] [place], [facility]70 Physician Administrator Social Welfare Hematology/Oncology 03/04/[address] [place], [facility]70 Registered Dietitian Nutrition 06/07/23 Vivek Smith MD [address] [place] [address] [address] [place], [facility]70 Physician Hematology 12/11/23 Software Installer Relationship Specialty Start Date End Date Giovanni Salinas II, MD [address] [place] [address] PCP - General Internal Medicine 11/29/19 César Leiva MD [address] [place] [address] Endocrinology 05/08/20 Josephine Salomon RN [address] [place] [address] Specialty Chief Talent Officer Hematology/Oncology 03/04/22 Greta Wetzel PA-C [address] [place] [address] [place] [address] Physician Administrator Social Welfare Hematology/Oncology 03/04/[address] [place] [address] Registered Dietitian Nutrition 06/07/23 Vivek Smith MD [address] [place] [address] [place] [address] Physician Hematology 12/11/23 Software Installer Relationship Specialty Start Date End Date Giovanni Salinas II, MD [address] [facility] [place] [place] [address] PCP - General Internal Medicine 11/29/19 César Leiva MD [address] [facility] [address] [place] [address] Endocrinology 05/08/20 Josephine Salomon, RN [address] [place] [address] Specialty Chief Talent Officer Hematology/Oncology 03/04/22 Grace Bess MD [address] [place] [address] [place] [address] Physician Hematology/Oncology 03/04/22 12/10/23 Greta Wetzel PA-C [address] [place] [address] [place] [address] Physician Administrator Social Welfare Hematology/Oncology 03/04/[address] [place] [address] Registered Dietitian Nutrition 06/07/23 Software Installer Relationship Specialty Start Date End Date Giovanni Salinas II, MD [address] [facility] [address] [place] [address] PCP - General Internal Medicine 11/29/19 César Leiva MD [address] [place] [address] Endocrinology 05/08/20 Josephine Salomon, RN [address] [place] [address] Specialty Chief Talent Officer Hematology/Oncology 03/04/22 Grace Bess MD [address] [place] [address] [place] [address] Physician Hematology/Oncology 03/04/22 12/10/23 Greta Wetzel PA-C [address] [place] [address] [place] [address] Physician Administrator Social Welfare Hematology/Oncology 03/04/[address] [place] [address] [place] [address] Registered Dietitian Nutrition 06/07/23 Software Installer Relationship Specialty Start Date End Date Giovanni Salinas II, MD [address] [facility] [address] [place] [address] PCP - General Internal Medicine 11/29/19 César Leiva MD [address] [place] [address] Endocrinology 05/08/20 Josephine Salomon RN [address] [place] [address] Specialty Chief Talent Officer Hematology/Oncology 03/04/22 Grace Bess MD [address] [facility] [place] [address] Physician Hematology/Oncology 03/04/22 12/10/23 Greta Wetzel PA-C [address] [place] [address] [place] [address] Physician Administrator Social Welfare Hematology/Oncology 03/04/[address] [place] [address] [place] [address] Registered Dietitian Nutrition 06/07/23 Software Installer Relationship Specialty Start Date End Date Giovanni Salinas II, MD [address] [facility] [place] [place] [address] PCP - General Internal Medicine 11/29/19 César Leiva MD [address] [facility] [address] [place] [address] Endocrinology 05/08/20 Josephine Slaomon RN [address] [place] [address] Specialty Chief Talent Officer Hematology/Oncology 03/04/22 Grace Bess MD [address] [facility] [place] [address] Physician Hematology/Oncology 03/04/22 12/10/23 Greta Wetzel PA-C [address] [place] [address] [place] [address] Physician Administrator Social Welfare Hematology/Oncology 03/04/22 Software Installer Relationship Specialty Start Date End Date Giovanni Salinas II, MD [address] [place] [address] [place] [address] PCP - General Internal Medicine 11/29/19 César Leiva MD [address] [place] [address] Endocrinology 05/08/20 Josephine Salomon, RN [address] [facility] [place] [address] Specialty Chief Talent Officer Hematology/Oncology 03/04/22 Grace Bess MD [address] [place] [address] Physician Hematology/Oncology 03/04/22 12/10/23 Greta Wetzel PA-C [address] [facility] [place] [address] Physician Administrator Social Welfare Hematology/Oncology 03/04/22 Software Installer Relationship Specialty Start Date End Date Giovanni Salinas II, MD [address] [facility] [address] [place] [address] PCP - General Internal Medicine 11/29/19 César Leiva MD [address] [place] [address] Endocrinology 05/08/20 Josephine Salomon, RN [address] [facility] [place] [address] Specialty Chief Talent Officer Hematology/Oncology 03/04/22 Grace Bess MD [address] [place] [address] Physician Hematology/Oncology 03/04/22 12/10/23 Greta Wetzel PA-C [address] [place] [address] [place] [address] Physician Administrator Social Welfare Hematology/Oncology 03/04/22 Software Installer Relationship Specialty Start Date End Date Giovanni Salinas II, MD [address] [facility] [address] [place] [address] PCP - General Internal Medicine 11/29/19 César Leiva MD [address] [place] [address] Endocrinology 05/08/20 Josephine Salomon RN [address] [facility] [place] [address] Specialty Chief Talent Officer Hematology/Oncology 03/04/22 Grace Bess MD [address] [place] [address] [place] [address] Physician Hematology/Oncology 03/04/22 12/10/23 Greta Wetzel PA-C [address] [place] [address] [place] [address] Physician Administrator Social Welfare Hematology/Oncology 03/04/22 Software Installer Relationship Specialty Start Date End Date Giovanni Salinas II, MD [address] [facility] [address] [place] [address] PCP - General Internal Medicine 11/29/19 César Leiva MD [address] [place] [address] Endocrinology 05/08/20 Josephine Salomon RN [address] [place] [address] Specialty Chief Talent Officer Hematology/Oncology 03/04/22 Greta Wetzel PA-C [address] [place] [address] Physician Administrator Social Welfare Hematology/Oncology 03/04/[address] [place] [address] Registered Dietitian Nutrition 06/07/23 Vivek Smith MD [address] [place] [address] [place] [address] Physician Hematology 12/11/23 Software Installer Relationship Specialty Start Date End Date Giovanni Salinas II, MD [address] [facility] [address] [place] [address] PCP - General Internal Medicine 11/29/19 César Leiva MD [address] [facility] [address] [place] [address] Endocrinology 05/08/20 Josephine Salomon RN [address] [place] [address] Specialty Chief Talent Officer Hematology/Oncology 03/04/22 Grace Bess MD [address] [facility] [place] [address] Physician Hematology/Oncology 03/04/22 12/10/23 Greta Wetzel PA-C [address] [place] [address] Physician Administrator Social Welfare Hematology/Oncology 03/04/22 Software Installer Relationship Specialty Start Date End Date Giovanni Salinas II, MD [address] [place] [place] [address] PCP - General Internal Medicine 11/29/19 César Leiva MD [address] [place] [address] Endocrinology 05/08/20 Software Installer Relationship Specialty Start Date End Date Giovanni Salinas MD [address] [place] [place] [address] PCP - General Internal Medicine 10/20/22 Giovanni Salinas MD [address] [place] [address] PCP - ACO Reach 09/20/23Monday, JAUN Wilson [address] [place] [address] Licensed Practical Nurse Family Medicine 11/02/23 Software Installer Relationship Specialty Start Date End Date Giovanni Salinas II, MD [address] [place] [address] PCP - General Internal Medicine 11/29/19 César Leiva MD [address] [place] [address] Endocrinology 05/08/20 Josephine Salomon RN [address] [place] [address] Specialty Chief Talent Officer Hematology/Oncology 03/04/22 Greta Wetzel PALaurenC [address] [place] [address] [place] [address] Physician Administrator Social Welfare Hematology/Oncology 03/04/[address] [place] [address] [place] [address] Registered Dietitian Nutrition 06/07/23 Vivek Smith MD [address] [place] [address] [place] [address] Physician Hematology 12/11/23 Software Installer Relationship Specialty Start Date End Date Giovanni Salinas II, MD [address] [facility] 110 [place] [address] PCP - General Internal Medicine 11/29/19 César Leiva MD [address] [facility] [address] [place] [id number] Endocrinology 05/08/20 Josephine Salomon, RN [address] [place] [address] Specialty Chief Talent Officer Hematology/Oncology 03/04/22 Greta Wetzel, PALaurenC [address] [place] [address] [place] [address] Physician Administrator Social Welfare Hematology/Oncology 03/04/[address] [place] [address] [place] [address] Registered Dietitian Nutrition 06/07/23 Vivek Smith MD [address] [place] [address] [place] [address] Physician Hematology 12/11/23 Software Installer Relationship Specialty Start Date End Date Giovanni Salinas II, MD [address] [place] [place] [address] PCP - General Internal Medicine 11/29/19 César Leiva MD [address] [place] [address] Endocrinology 05/08/20 Josephine Salomon, LUIS ANTONIO [address] [facility] [address] [place], [facility] Specialty Chief Talent Officer Hematology/Oncology 03/04/22 Greta Wetzel, PA-C [address] [place] [address] [place] [address] Physician Administrator Social Welfare Hematology/Oncology 03/04/[address] [place] [address] [place] [address] Registered Dietitian Nutrition 06/07/23 Vivek Smith MD [address] [place] [address] [place] [address] Physician Hematology 12/11/23 Software Installer Relationship Specialty Start Date End Date Giovanni Salinas MD [address] [place] [address] PCP - General Internal Medicine 10/20/22 Giovanni Salinas MD [address] [place] [address] PCP - ACO Reach 09/20/23MondayKatie LPN [address] [place] [address] Licensed Practical Nurse Family Medicine 11/02/23 Software Installer Relationship Specialty Start Date End Date Giovanni Salinas II, MD [address] [place] [address] PCP - General Internal Medicine 11/29/19 César Leiva MD [address] [place] [address] Endocrinology 05/08/20 Josephine Salomon, RN [address] [facility] [place] [address] Specialty Chief Talent Officer Hematology/Oncology 03/04/22 Greta Wetzel PA-C [address] [place] [address] Physician Administrator Social Welfare Hematology/Oncology 03/04/[address] [place] [address] Registered Dietitian Nutrition 06/07/23 Vivek Smith MD [address] [place] [address] Physician Hematology 12/11/23 Software Installer Relationship Specialty Start Date End Date Giovanni Salinas II, MD [address] [facility] [address] [place] [address] PCP - General Internal Medicine 11/29/19 César Leiva MD [address] [place] [address] Endocrinology 05/08/20 Josephine Salomon, RN [address] [facility] [place] [address] Specialty Chief Talent Officer Hematology/Oncology 03/04/22 Great Wetzel PA-C [address] [place] [address] Physician Administrator Social Welfare Hematology/Oncology 03/04/[address] [place] [address] Registered Dietitian Nutrition 06/07/23 Vivek Smith MD [address] [place] [address] [place] [address] Physician Hematology 12/11/23 Software Installer Relationship Specialty Start Date End Date Giovanni Salinas II, MD [address] [facility] [address] [place] [address] PCP - General Internal Medicine 11/29/19 César Leiva MD [address] [facility] [address] [place] [address] Endocrinology 05/08/20 Josephine Salomon, RN [address] [place] [address] Specialty Chief Talent Officer Hematology/Oncology 03/04/22 Greta Wetzel PA-C [address] [place] [address] [place] [address] Physician Administrator Social Welfare Hematology/Oncology 03/04/[address] [place] [address] Registered Dietitian Nutrition 06/07/23 Vivek Smith MD [address] [place] [address] Physician Hematology 12/11/23 Software Installer Relationship Specialty Start Date End Date Giovanni Salinas MD [address] [place] [address] PCP - General Internal Medicine 10/20/22 Giovanni Salinas MD [address] [facility] [address] [place] [address] PCP - ACO Reach 09/20/23MondayKatie LPN [address] [place] [address] Licensed Practical Nurse Family Medicine 11/02/23 Software Installer Relationship Specialty Start Date End Date Giovanni Salinas MD [address] [facility] [address] [place] [address] PCP - General Internal Medicine 10/20/22 Giovanni Salinas MD [address] [facility] [address] [place] [address] PCP - ACO Reach 09/20/23MondayKatie LPN [address] [facility] [address] [place] [address] Licensed Practical Nurse Family Medicine 11/02/23 Goals [...] BE BASED ON THE PRIMARY CLINICAL RECORDS. [employer] provides no warranty or guarantee of the accuracy or completeness of information in this document.
--- OUTSIDE RECORDS SUMMARY | 2024-04-11 01:02 | XMS_ITS | CCD ---
Author Organization [facility] Care Team Providers Care Polysom Tech Name Role Phone Giovanni Salinas Primary Care Provider [phone] FARA MONACO Referring Unavailable GIOVANNI SALINAS Primary [...] Josephine Mi Unavailable Grace Bess MD Unavailable [phone] Greta Wetzel PA-C Unavailable [phone] Zayda ENCARNACION Consulting Unavailable FARA MONACO Attending Unavailable FARA MONACO Admitting Unavailable GIOVANNI SALINAS II Primary Care Unavailable Giovanni Salinas II Primary Care Provider Mehreen Leivamad Firas Unavailable Aime SALMON, Josephine Mi Unavailable Grace Bess MD Unavailable [phone] Greta Wetzel PA-C Unavailable [phone] César Leiva MD Unavailable [phone] MARIO Salinas Primary Care Provider DANIKA Padilla Emergency Provider Brad MARTIN MD, Daniel B Primary Care Provider Josephine Salomon RN Unavailable Ibis Buchanan RD Unavailable Giovanni Salinas MD Unavailable [phone] Giovanni Salinas MD Primary Care Provider Brad MARTIN MD, Daniel B Primary Care Provider [phone] Jemma Padilla Attending Unavailable Jemma Padilla Admitting Unavailable Giovanni Salinas Primary Care Unavailable Luis GODWIN, Vivek Jordan Unavailable KARUPPASAMY, KARUNAKARAVEL Admitting Unava ilable KARUPPASAMY, KARUNAKARAVEL Attending Unava ilable SALINAS II, GIOVANNI B Primary Care Unavailable Grace Bess MD Unavailable [phone] Giovanni Salinas MD Unavailable Monday HOME PLANNING CONSULTANT SALESPERSONKatie Unavailable GIOVANNI SALINAS Attending Unavailable GIOVANNI SALINAS [...] II, GIOVANNI B Primary Care Unavailable GRETA WETZLE Referring Unavailable SALINAS II, GIOVANNI B Primary [...] Primary Care Unavailable KARAMLOU, GRACE Referring Unavailable SALIANS II, GIOVANNI B Primary Care Unavailable GRETA WETZEL Referring Unavailable SALINAS II, GIOVANNI B Primary Care Unavailable KARAMLOU, GRACE Referring Unavailable SALINAS II, GIOVANNI B Primary Care Unavailable KARAMLOU, GRACE Referring Unavailable KARAMLOU, GRACE Attending Unavailable SALINAS II, GIOVANNI B Primary Care Unavailable KARAMLOU, GRACE Referring Unavailable SALINAS II, GIOVANNI B Primary Care Unavailable KARAMLOU, GRACE Referring Unavailable GERTA WETZEL Attending Unavailable SALINAS II, GIOVANNI B [...] SMITH Referring Unavailable GRETA WETZEL Attending Unavailable SLAINAS II, GIOVANIN B Primary Care Unavailable KARAMLOU, GRACE Referring [...] 100 tablet 0 03/18/2020 04/17/2020 Active amylases 64138 unt / endopeptidases 68392 unt / lipase 6000 unt delayed release [...] 0 10/13/2023 10/20/2023 Active Continuous Blood Gluc Psychology Teacher (Dexcom G7 Psychology Teacher) device (3 sources) Start: 04-17-2023 End: 04-16-2024 Continuous Blood Gluc Psychology Teacher (Dexcom G7 Psychology Teacher) device Indications: Type 2 diabetes mellitus without complication, without long-term current use of insulin ([facility]) 1 Device yearly. 1 each 04/17/2023 04/16/2024 Active Start: 04-17-2023 End: 04-16-2024 Continuous Blood Gluc Receiv er (Dexcom G7 Psychology Teacher) device Indications: Type 2 diabetes mellitus without complication, without long-term current use of insulin ([facility]) 1 Device yearly. 1 each 0 04/17/2023 04/16/2024 Active Continuous Blood Gluc Sensor (Dexcom G7 Sensor) misc (1 source) Start: 04-17-2023 End: 04-16-2024 Continuous Blood Gluc Sensor (Dexcom G7 Sensor) misc Indications: Type 2 diabetes mellitus without complication, without long-term current use of insulin (CMS/[facility]) 1 Application Every 10 (ten) days. 3 each 11 04/17/2023 04/16/2024 Active Continuous Blood Gluc Transmit (Dexcom G6 transmitter) misc (1 source) Start: 11-14-2022 Continuous Blo od Gluc Transmit (Dexcom G6 transmitter) misc Indications: Diabetes mellitus due to underlying condition with diabetic polyneuropathy, without long-term current use of insulin ([facility]) Use as instructed 1 each 0 11/14/2022 Active Continuous Glucose Psychology Teacher (FreeStyle Flaco 3 [place]) device (6 sources) Start: 10-26-2023 End: 10-25-2024 Continuous Glucose Psychology Teacher (FreeStyle Flaco 3 [place]) device Indications: Type 2 diabetes mellitus without complication, without long-term current use of insulin (CMS/[facility]) 1 Device yearly 1 each 10/26/2023 10/25/2024 Active Continuous Glucose Sensor (FreeStyle Flaco 3 Plus Sensor) misc (6 sources) Start: 02-23-2024 End: 05-23-2024 Continuous Glucose Sensor (FreeStyle Flaco 3 Plus Sensor) misc Indications: Diabetes mellitus due to underlying condition with diabetic polyneuropathy, without long-term current use of insulin ([facility]) 1 Units See administration instructions [...] Comment on above: [facility] hours as needed. tamsulosin hydrochloride 0.4 mg oral capsule (20 sources) alpha-Adrenergic Quinn Start: 022 take 1 capsule by mouth once daily tamsulosin (Flomax) 0.4 MG 24 hr capsule Indications: Acute urinary retention Take 1 capsule (0.4 mg) by mouth Daily 100 capsule 03/15/2024 Active Start: 02-12-2022 take 1 capsule by mo [facility] every twenty-four hours in [...] by Patient) take 2 tablets by mo [facility] every six hours as needed for pain acetaminophen (TYLENOL) 325 MG tablet Ta ke 650 mg by mouth every 6 hours as needed for Pain 0 Active Comment on above: Take 2 tablets by mo [facility] every 6 hours as needed for Pain [...] Onset: 05-25-2021 Episodic Other aftercare (1 source) 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; 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: [TOURS CAPTAIN CURRNT USE ANTICOAGULANTS] Onset: 06-23-2021 Episodic Other [...] sources) Long-term current use of anticoagulant; 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: [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] Onset: 04-07-2020 12-04-2020 Episodic Other aftercare (20 sources) Long-term current use of insulin; 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: [retirement (current) use of insulin] Onset: 05-08-2020 05-08-2020 [...] Test Name Value Interpretation Reference Range Facility [facility] 04-04-2024 CNPN Normal [facility] CANCER AG19-9 SERPL-ACNC on 04-03-2024 [facility] CANCER AG19-9 SERPL-ACNC 496 U/mL High [facility] - 36.0 U/mL [facility] Comment on above: Cancer antigen 19-9 test is used as an aid in monitoring response to treatment or recurrence in patients with established pancreatic, hepatobiliary, or gastrointestinal malignancies. Clinical correlation is required. The CA 19-9 Antigen test was performed using the [employer] DXI paramagnetic particle chemiluminescent immunoassay method. Results obtained with different assay methods or kits cannot be used interchangeably. Interpretation and review of laboratory results Abnormal [facility] Specimen Type: BLOOD SPECIMEN Ordering Facility: [facility] Address: [address] [place] [address] Original Ordering Provider: VIVEK SMITH [facility] CBC W Auto Differential pane l (Bld)on 04-02-2024 Basophils (Bld) [#/Vol] 0.04 10*3/uL [facility] Differential cell count method Nom (Bld) Auto [facility] Eosinophils (Bld) [#/Vol] 0.04 10*3/uL [facility] Hemoglobin (Bld) [Mass/Vol] 11.0 g/dL Low 13.0 - 17.0 g/dL [facility] Immature granulocytes (Bld) [#/Vol] 0.16 10*3/uL High [facility] Immature granulocytes/100 WBC (Bld) 2.0 % [facility] Lymphocytes (Bld) [#/Vol] 1.92 10*3/uL [facility] Monocytes (Bld) [#/Vol] 0.74 10*3/uL [facility] Neutrophils (Bld) [#/Vol] 5.26 10*3/uL [facility] Nucleated RBC (Bld) [#/Vol] [facility] Nucleated RBC/100 WBC (Bld) [Ratio] 0.0 % /100 WBC [facility] Platelet mean volume (Bld) [Entitic vol] 9.0 fL 9.0 - 12.7 fL [facility] Platelets (Bld) [#/Vol] 302 10*3/uL [facility] RBC (Bld) [#/Vol] 3.70 10*6/uL Low 4.20 - 6.0 0 m/uL [facility] WBC (Bld) [#/Vol] 8.16 10*3/uL [facility] Basophils (Bld) [#/Vol] 0.04 10*3/uL Normal <0.11 [facility] Comment on above: Order Comment: Speci men Type: BLOOD SPECIMENOrdering Facility: [facility] Address: [address] [place] [address] Performed By: #### 5 7021-8 ####[facility] LABCLIA [id number] [place] [address] Basophils/100 WBC (Bld) 0.5 % Normal [facility] Comment on above: Order Comment: Speci men Type: BLOOD SPECIMENOrdering Facility: [facility] Address: [address] [place] [address] Performed By: #### 5 7021-8 ####[facility] LABCLIA [id number] [place] [address] Differential cell count method Nom (Bld) Auto Normal [facility] Comment on above: Order Comment: Speci men Type: BLOOD SPECIMENOrdering Facility: [facility] Address: [address] [place] [address] Performed By: #### 5 7021-8 ####[facility] LABCLIA [id number] [place] [address] Eosinophils (Bld) [#/Vol] 0.04 10*3/uL Normal <0.46 [facility] Comment on above: Order Comment: Speci men Type: BLOOD SPECIMENOrdering Facility: [facility] Address: [address] [place] [address] Performed By: #### 5 7021-8 ####[facility] LABCLIA [id number] [place] [address] Eosinophils/100 WBC (Bld) 0.5 % Normal [facility] Comment on above: Order Comment: Speci men Type: BLOOD SPECIMENOrdering Facility: [facility] Address: [address] [place] [address] Performed By: #### 5 7021-8 ####[facility] LABCLIA [id number] [place] [address] Erythrocyte distribution width (RBC) [Ratio] 16.5 % High 11.5-15.0 [facility] Comment on above: Order Comment: Speci men Type: BLOOD SPECIMENOrdering Facility: [facility] Address: [address] [place] [address] Performed By: #### 5 7021-8 ####[facility] LABCLIA [id number] [place] [address] Hematocrit (Bld) [Volume fraction] 34.1 % Low 39.0-51.0 [facility] Comment on above: Order Comment: Speci men Type: BLOOD SPECIMENOrdering Facility: [facility] Address: [address] [place] [address] Performed By: #### 5 7021-8 ####[facility] LABIA [id number] [place] [address] Hemoglobin (Bld) [Mass/Vol] 11.0 g/dL Low 13.0-17.0 [facility] Comment on above: Order Comment: Speci men Type: BLOOD SPECIMENOrdering Facility: [facility] Address: [address] [place] [address] Performed By: #### 5 7021-8 ####[facility] LABCLIA [id number] [place] [address] Immature granulocytes (Bld) [#/Vol] 0.16 10*3/uL High <0.10 [facility] Comment on above: Order Comment: Speci men Type: BLOOD SPECIMENOrdering Facility: [facility] Address: [address] [place] [address] Performed By: #### 5 7021-8 ####[facility] LABCLIA [id number] [place] [address] Immature granulocytes/100 WBC (Bld) 2.0 % Normal [facility] Comment on above: Order Comment: Speci men Type: BLOOD SPECIMENOrdering Facility: [facility] Address: [address] [place] [address] Performed By: #### 5 7021-8 ####[facility] LABCLIA [id number] [place] [address] Lymphocytes (Bld) [#/Vol] 1.92 10*3/uL Normal 1.00-4.00 [facility] Comment on above: Order Comment: Speci men Type: BLOOD SPECIMENOrdering Facility: [facility] Address: [address] [place] [address] Performed By: #### 5 7021-8 ####[facility] LABCLIA [id number] [place] [address] Lymphocytes/100 WBC (Bld) 23.5 % Normal [facility] Comment on above: Order Comment: Speci men Type: BLOOD SPECIMENOrdering Facility: [facility] Address: [address] [place] [address] Performed By: #### 5 7021-8 ####[facility] LABCLIA [id number] [place] [address] MCH (RBC) [Entitic mass] 29.7 pg Normal 26.0-34.0 [facility] Comment on above: Order Comment: Speci men Type: BLOOD SPECIMENOrdering Facility: [facility] Address: [address] [place] [address] Performed By: #### 5 7021-8 ####[facility] LABCLIA [id number] [place] [address] MCHC (RBC) [Mass/Vol] 32.3 g/dL Normal 30.5-36.0 [facility] Comment on above: Order Comment: Speci men Type: BLOOD SPECIMENOrdering Facility: [facility] Address: [address] [place], [place] [address] Performed By: #### 5 7021-8 ####[facility] LABCLIA [id number] [place] [address] MCV (RBC) [Entitic vol] 92.2 fL Normal 80.0-100.0 [facility] Comment on above: Order Comment: Speci men Type: BLOOD SPECIMENOrdering Facility: [facility] Address: [address] [place] [address] Performed By: #### 5 7021-8 ####[facility] LABCLIA [id number] [place] [address] Monocytes (Bld) [#/Vol] 0.74 10*3/uL Normal <0.87 [facility] Comment on above: Order Comment: Speci men Type: BLOOD SPECIMENOrdering Facility: [facility] Address: [address] [place] [address] Performed By: #### 5 7021-8 ####[facility] LABCLIA [id number] [place] [address] Monocytes/100 WBC (Bld) 9.1 % Normal [facility] Comment on above: Order Comment: Speci men Type: BLOOD SPECIMENOrdering Facility: [facility] Address: [address] [place] [address] Performed By: #### 5 7021-8 ####[facility] LABCLIA [id number] [place] [address] Neutrophils (Bld) [#/Vol] 5.26 10*3/uL Normal 1.45-7.50 [facility] Comment on above: Order Comment: Speci men Type: BLOOD SPECIMENOrdering Facility: [facility] Address: [address] [place] [address] Performed By: #### 5 7021-8 ####[facility] LABCLIA [id number] [place] [address] Neutrophils/100 WBC (Bld) 64.4 % Normal [facility] Comment on above: Order Comment: Speci men Type: BLOOD SPECIMENOrdering Facility: [facility] Address: [address] [place] [address] Performed By: #### 5 7021-8 ####[facility] LABCLIA [id number] [place] [address] Nucleated RBC (Bld) [#/Vol] 10*3/uL Normal <0.01 [facility] Comment on above: Order Comment: Speci men Type: BLOOD SPECIMENOrdering Facility: [facility] Address: [address] [place] [address] Performed By: #### 5 7021-8 ####[facility] LABCLIA [id number] [place] [address] Nucleated RBC/100 WBC (Bld) [Ratio] 0.0 /100 WBC Normal [facility] Comment on above: Order Comment: Speci men Type: BLOOD SPECIMENOrdering Facility: [facility] Address: [address] [place] [address] Performed By: #### 5 7021-8 ####[facility] LABCLIA [id number] [place] [address] Platelet mean volume (Bld) [Entitic vol] 9.0 fL Normal 9.0-12.7 [facility] Comment on above: Order Comment: Speci men Type: BLOOD SPECIMENOrdering Facility: [facility] Address: [address] [place] [address] Performed By: #### 5 7021-8 ####[facility] LABCLIA [id number] [place] [address] Platelets (Bld) [#/Vol] 302 10*3/uL Normal 150-400 [facility] Comment on above: Order Comment: Speci men Type: BLOOD SPECIMENOrdering Facility: [facility] Address: [address] [place] [address] Performed By: #### 5 7021-8 ####[facility] LABCLIA [id number] [place] [address] RBC (Bld) [#/Vol] 3.70 10*6/uL Low 4.20-6.00 [facility] Comment on above: Order Comment: Speci men Type: BLOOD SPECIMENOrdering Facility: [facility] Address: [address] [place] [address] Performed By: #### 5 7021-8 ####[facility] LABCLIA [id number] [place] [address] WBC (Bld) [#/Vol] 8.16 10*3/uL Normal 3.70-11.00 [facility] Comment on above: Order Comment: Speci men Type: BLOOD SPECIMENOrdering Facility: [facility] Address: [address] [place] [address] Performed By: #### 5 7021-8 ####[facility] LABIA [id number] [place] [address] [facility] CBC W AUTO DIFF BLDon [facility] BASOPHILS # BLD AUTO 0.04 [facility] DIFFERENTIAL METHOD BLD Auto [facility] EOSINOPHIL # BLD AUTO 0.04 [facility] LYMPHOCYTES # BLD AUTO 1.92 [facility] MONOCYTES # BLD AUTO 0.74 [facility] NEUTROPHILS # BLD AUTO 5.26 [facility] NRBC # BLD AUTO <0.01 [facility] NRBC/100 WBC BLD-RTO 0 /100 WBC [facility] PLATELET # BLD AUTO 302 [facility] PMV BLD AUTO 9 fL 9.0 - 12.7 fL [facility] WBC # BLD AUTO 8.16 [facility] Hemoglobin (Bld) [Mass/Vol] 11 g/dL Low 13.0 - 17.0 g/dL [facility] IMM GRANULOCYTES # BLD AUTO 0.16 High [facility] IMM GRANULOCYTES/LEUK NFR BLD AUTO 2 % [facility] RBC (Bld) [#/Vol] 3.7 10*6/uL Low 4.20 - 6.0 0 m/uL [facility] Specimen Type: BLOOD SPECIMEN Ordering Facility: [facility] Address: [address] [place] [address] Original Ordering Provider: VIVEK NEWBY [facility] COMP METAB 2000 PNL SERP Kimo 04-02-2024 [facility] AST SERPL-CCNC 14 U/L 14 - 40 U/L [facility] BILIRUB SERPL-MCNC 0.6 mg/dL 0.2 - 1.3 mg/dL [facility] PROT SERPL-MCNC 6.5 g/dL 6.3 - 8. 0 g/dL [facility] GFR/1.73 sq M.predicted CKD-EPI (S/P/Bld) [Vol rate/Area] 96 - PINF [facility] Comment on above: Estimated Glomerular Filtration [...] GFR. Specimen Type: BLOOD SPECIMEN Ordering Facility: [facility] Address: [address] [place] [address] Original Ordering Provider: VIVEK NEWBY CNOVSPon 04-02-2024 CNOVSP Normal [facility] Cancer Ag19-9 SerPl-aCncon 1 06-02-2023 Cancer Ag 19-9 Qn 496.0 [arb'U]/mL High <36.0 [facility] Comment on above: Order Comment: Speci men Type: BLOOD SPECIMENOrdering Facility: [facility] Address: [address] [place] [address] Result Comment: [facility] er antigen 19-9 test is used as an aid in monitoring response to treatment or recurrence in patients with established pancreatic, hepatobiliary, or gastrointestinal malignancies. Clinical correlation is required.The CA 19-9 Antigen test was performed using the [employer] DXI paramagnetic particle chemiluminescent immunoassay method. Results obtained with different assay methods or kits cannot be used interchangeably. Performed By: #### 2 4108-3 ####[facility] LABCLIA [id number] [facility]ITAL[facility] [place] [address] [place] Comprehensive metabolic 2000 panelOrdered By: Marina Bailey on 04-02-2024 AST [Catalytic activity/Vol] 14 U/L 14 - 40 U/L [facility] Bilirubin [Mass/Vol] 0.6 mg/dL 0.2 - 1 .3 mg/dL [facility] GFR/1.73 sq M.predicted among non-blacks MDRD (S/P/Bld) [Vol rate/Area] 96 mL/min/{1.73_m2} - PINF [facility] Comment on above: Estimated Glomerular Filtration [...] g/dL 6.3 - 8.0 g/dL [facility] Comprehensive metabolic 2000 panelon 04-02-2024 Albumin [Mass/Vol] 3.8 g/dL Low 3.9-4.9 [facility] Comment on above: Order Comment: Speci men Type: BLOOD SPECIMENOrdering Facility: [facility] Address: [address] [place] [address] Performed By: #### 2 4323-8 ####[facility] LABCLIA [id number] [place] [address] ALP [Catalytic activity/Vol] 152 U/L High 38-113 [facility] Comment on above: Order Comment: Speci men Type: BLOOD SPECIMENOrdering Facility: [facility] Address: [address] [place] [address] Performed By: #### 2 4323-8 ####[facility] LABCLIA [id number] [place] [address] ALT [Catalytic activity/Vol] 16 U/L Normal 10-54 [facility] Comment on above: Order Comment: Speci men Type: BLOOD SPECIMENOrdering Facility: [facility] Address: [address] [place] [address] Performed By: #### 2 4323-8 ####[facility] LABCLIA [id number] [place] [address] Anion gap [Moles/Vol] 10 mmol/L Normal 8-15 [facility] Comment on above: Order Comment: Speci men Type: BLOOD SPECIMENOrdering Facility: [facility] Address: [address] [place], [place] [address] Performed By: #### 2 4323-8 ####[facility] LABCLIA [id number] [place] [address] AST [Catalytic activity/Vol] 14 U/L Normal 14-40 [facility] Comment on above: Order Comment: Speci men Type: BLOOD SPECIMENOrdering Facility: [facility] Address: [address] [place] [address] Performed By: #### 2 4323-8 ####[facility] LABCLIA [id number] [place] [address] Bilirubin [Mass/Vol] 0.6 mg/dL Normal 0.2-1.3 [facility] Comment on above: Order Comment: Speci men Type: BLOOD SPECIMENOrdering Facility: [facility] Address: [address] [place], [place] [address] Performed By: #### 2 4323-8 ####[facility] LABCLIA [id number] [place] [address] Calcium [Mass/Vol] 9.8 mg/dL Normal 8.5-10.2 [facility] Comment on above: Order Comment: Speci men Type: BLOOD SPECIMENOrdering Facility: [facility] Address: [address] [place], [place] [address] Performed By: #### 2 4323-8 ####[facility] LABCLIA [id number] [place] [address] Chloride [Moles/Vol] 105 mmol/L Normal 98-107 [facility] Comment on above: Order Comment: Speci men Type: BLOOD SPECIMENOrdering Facility: [facility] Address: [address] [place] [address] Performed By: #### 2 4323-8 ####[facility] LABCLIA [id number] [place] [address] CO2 [Moles/Vol] 24 mmol/L Normal 22-30 [facility] Comment on above: Order Comment: Speci men Type: BLOOD SPECIMENOrdering Facility: [facility] Address: [address] [place] [address] Performed By: #### 2 4323-8 ####[facility] LABCLIA [id number] [place] [address] Creatinine [Mass/Vol] 0.75 mg/dL Normal 0.73-1.22 [facility] Comment on above: Order Comment: Speci men Type: BLOOD SPECIMENOrdering Facility: [facility] Address: [address] [place] [address] Performed By: #### 2 4323-8 ####[facility] LABCLIA [id number] [place] [address] Creatinine and Glomerular filtration rate.predicted panel (S/P/Bld) 96 mL/min/1.73m??? Normal >=60 [facility] Comment on above: Order Comment: Speci men Type: BLOOD SPECIMENOrdering Facility: [facility] Address: [address] [place] [address] Result Comment: Kathy mated Glomerular Filtration Rate [...] actual GFR. Performed By: #### 2 4323-8 ####[facility] LABCLIA [id number] [place] [address] Glucose [Mass/Vol] 143 mg/dL High 74-99 [facility] Comment on above: Order Comment: Speci men Type: BLOOD SPECIMENOrdering Facility: [facility] Address: [address] [place] [address] Result Comment: The [place] Diabetes Association (ADA) provides guidance for cutoff [...] Standards of Medical Care in Diabetes 2016, [place] [employer]. Diabetes Care. 2016.39(Suppl 1). Performed By: #### 2 4323-8 ####[facility] LABCLIA [id number] [place] [address] Potassium [Moles/Vol] 4.2 mmol/L Normal 3.7-5.1 [facility] Comment on above: Order Comment: Speci men Type: BLOOD SPECIMENOrdering Facility: [facility] Address: [address] [place] [address] Performed By: #### 2 4323-8 ####[facility] LABCLIA [id number] [place] [address] Protein [Mass/Vol] 6.5 g/dL Normal 6.3-8.0 [facility] Comment on above: Order Comment: Speci men Type: BLOOD SPECIMENOrdering Facility: [facility] Address: [address] [place], [place] [address] Performed By: #### 2 4323-8 ####[facility] LABCLIA [id number] [place] [address] Sodium [Moles/Vol] 139 mmol/L Normal 136-144 [facility] Comment on above: Order Comment: Speci men Type: BLOOD SPECIMENOrdering Facility: [facility] Address: [address] [id number] Performed By: #### 2 4323-8 ####[facility] LABCLIA [id number] [place] [address] Urea nitrogen [Mass/Vol] 11 mg/dL Normal 9-24 [facility] Comment on above: Order Comment: Speci men Type: BLOOD SPECIMENOrdering Facility: [facility] Address: [address] [id number] Performed By: #### 2 4323-8 ####[facility] LABCLIA [id number] [place] [address] Laboratory - Chemistry and C hemistry - challengeOrdered By: Marina Bailey on 04-02-2024 Albumin [Mass/Vol] 3.8 g/dL Low 3.9 - 4.9 g/dL [facility] ALP [Catalytic activity/Vol] 152 U/L High 38 - 113 U/L [facility] ALT [Catalytic activity/Vol] 16 U/L 10 - 54 U/L [facility] Anion gap [Moles/Vol] 10 mmol/L 8 - 15 mmol/L [facility] Calcium [Mass/Vol] 9.8 mg/dL 8.5 - 10. 2 mg/dL [facility] Chloride [Moles/Vol] 105 mmol/L 98 - 10 7 mmol/L [facility] CO2 [Moles/Vol] 24 mmol/L 22 - 30 mmol/L [facility] Creatinine [Mass/Vol] 0.75 mg/dL 0.73 - 1.22 mg/dL [facility] Glucose [Mass/Vol] 143 mg/dL High 74 - 99 mg/dL [facility] Comment on above: The [place] Diabete s Association (ADA) provides guidance for [...] Standards of Medical Care in Diabetes 2016, [place] [employer]. Diabetes Care. 2016.39(Suppl 1). Potassium [Moles/Vol] 4.2 mmol/L 3.7 - 5.1 mmol/L [facility] Sodium [Moles/Vol] 139 mmol/L 136 - 144 mmol/L [facility] Urea nitrogen [Mass/Vol] 11 mg/dL 9 - 24 mg/dL [facility] Laboratory - Hematology and Cell countson 04-02-2024 Basophils/100 WBC (Bld) 0.5 % [facility] Eosinophils/100 WBC (Bld) 0.5 % [facility] Erythrocyte distribution width (RBC) [Ratio] 16.5 % High 11.5 - 15.0 % [facility] Hematocrit (Bld) [Volume fraction] 34.1 % Low 39.0 - 51.0 % [facility] Lymphocytes/100 WBC (Bld) 23.5 % [facility] MCH (RBC) [Entitic mass] 29.7 pg 26.0 - 34.0 pg [facility] MCHC (RBC) [Mass/Vol] 32.3 g/dL 30.5 - 36.0 g/dL [facility] MCV (RBC) [Entitic vol] 92.2 fL 80.0 - 100.0 fL [facility] Monocytes/100 WBC (Bld) 9.1 % [facility] Neutrophils/100 WBC (Bld) 64.4 % [facility] No Panel InformationOrdered By: Marina Bailey on 04-02-2024 Interpretation and review of laboratory results Abnormal [facility] No Panel Informationon 04-02 Interpretation and review of laboratory results Abnormal [facility] CNPNon 03-18-2024 CNPN Normal [facility] CNPNon 03-07-2024 CNPN Normal [facility] CBC W Auto Differential pane l (Bld)on 03-05-2024 Basophils (Bld) [#/Vol] NINF [facility] Differential cell count method Nom (Bld) Auto [facility] Eosinophils (Bld) [#/Vol] 0.04 10*3/uL [facility] Immature granulocytes (Bld) [#/Vol] 0.04 10*3/uL [facility] Immature granulocytes/100 WBC (Bld) 0.8 % [facility] Lymphocytes (Bld) [#/Vol] 1.62 10*3/uL [facility] Monocytes (Bld) [#/Vol] 0.91 10*3/uL High [facility] Neutrophils (Bld) [#/Vol] 2.67 10*3/uL [facility] Nucleated RBC (Bld) [#/Vol] [facility] Nucleated RBC/100 WBC (Bld) [Ratio] 0.0 % /100 WBC [facility] Platelet mean volume (Bld) [Entitic vol] 8.9 fL Low 9.0 - 12.7 fL [facility] Platelets (Bld) [#/Vol] 301 10*3/uL [facility] WBC (Bld) [#/Vol] 5.30 10*3/uL [facility] Basophils (Bld) [#/Vol] 10*3/uL Normal <0.11 [facility] Comment on above: Order Comment: Speci men Type: BLOOD SPECIMENOrdering Facility: [facility] Address: [address] [place] [address] Performed By: #### 5 7021-8 ####[facility] LABCLIA [id number] [place] [address] Basophils/100 WBC (Bld) 0.4 % Normal [facility] Comment on above: Order Comment: Speci men Type: BLOOD SPECIMENOrdering Facility: [facility] Address: [address] [place] [address] Performed By: #### 5 7021-8 ####[facility] LABCLIA [id number] [place] [address] Differential cell count method Nom (Bld) Auto Normal [facility] Comment on above: Order Comment: Speci men Type: BLOOD SPECIMENOrdering Facility: [facility] Address: [address] [place] [address] Performed By: #### 5 7021-8 ####[facility] LABCLIA [id number] [place] [address] Eosinophils (Bld) [#/Vol] 0.04 10*3/uL Normal <0.46 [facility] Comment on above: Order Comment: Speci men Type: BLOOD SPECIMENOrdering Facility: [facility] Address: [address] [place] [address] Performed By: #### 5 7021-8 ####[facility] LABCLIA [id number] [place] [address] Eosinophils/100 WBC (Bld) 0.8 % Normal [facility] Comment on above: Order Comment: Speci men Type: BLOOD SPECIMENOrdering Facility: [facility] Address: [address] [place] [address] Performed By: #### 5 7021-8 ####[facility] LABCLIA [id number] [place] [address] Erythrocyte distribution width (RBC) [Ratio] 16.4 % High 11.5-15.0 [facility] Comment on above: Order Comment: Speci men Type: BLOOD SPECIMENOrdering Facility: [facility] Address: [address] [place] [address] Performed By: #### 5 7021-8 ####[facility] LABCLIA [id number] [place] [address] Hematocrit (Bld) [Volume fraction] 35.6 % Low 39.0-51.0 [facility] Comment on above: Order Comment: Speci men Type: BLOOD SPECIMENOrdering Facility: [facility] Address: [address] [place] [address] Performed By: #### 5 7021-8 ####[facility] LABCLIA [id number] [place] [address] Hemoglobin (Bld) [Mass/Vol] 11.6 g/dL Low 13.0-17.0 [facility] Comment on above: Order Comment: Speci men Type: BLOOD SPECIMENOrdering Facility: [facility] Address: [address] [place] [address] Performed By: #### 5 7021-8 ####[facility] LABCLIA [id number] [place] [address] Immature granulocytes (Bld) [#/Vol] 0.04 10*3/uL Normal <0.10 [facility] Comment on above: Order Comment: Speci men Type: BLOOD SPECIMENOrdering Facility: [facility] Address: [address] [place] [address] Performed By: #### 5 7021-8 ####[facility] LABCLIA [id number] [place] [address] Immature granulocytes/100 WBC (Bld) 0.8 % Normal [facility] Comment on above: Order Comment: Speci men Type: BLOOD SPECIMENOrdering Facility: [facility] Address: [address] [place] [address] Performed By: #### 5 7021-8 ####[facility] LABCLIA [id number] [place] [address] Lymphocytes (Bld) [#/Vol] 1.62 10*3/uL Normal 1.00-4.00 [facility] Comment on above: Order Comment: Speci men Type: BLOOD SPECIMENOrdering Facility: [facility] Address: [address] [place] [address] Performed By: #### 5 7021-8 ####[facility] LABCLIA [id number] [place] [address] Lymphocytes/100 WBC (Bld) 30.6 % Normal [facility] Comment on above: Order Comment: Speci men Type: BLOOD SPECIMENOrdering Facility: [facility] Address: [address] [place] [address] Performed By: #### 5 7021-8 ####[facility] LABCLIA [id number] [place] [address] MCH (RBC) [Entitic mass] 30.4 pg Normal 26.0-34.0 [facility] Comment on above: Order Comment: Speci men Type: BLOOD SPECIMENOrdering Facility: [facility] Address: [address] [place] [address] Performed By: #### 5 7021-8 ####[facility] LABIA [id number] [place] [address] MCHC (RBC) [Mass/Vol] 32.6 g/dL Normal 30.5-36.0 [facility] Comment on above: Order Comment: Speci men Type: BLOOD SPECIMENOrdering Facility: [facility] Address: [address] [place] [address] Performed By: #### 5 7021-8 ####[facility] LABIA [id number] [place] [address] MCV (RBC) [Entitic vol] 93.4 fL Normal 80.0-100.0 [facility] Comment on above: Order Comment: Speci men Type: BLOOD SPECIMENOrdering Facility: [facility] Address: [address] [place] [address] Performed By: #### 5 7021-8 ####[facility] LABIA [id number] [place] [address] Monocytes (Bld) [#/Vol] 0.91 10*3/uL High <0.87 [facility] Comment on above: Order Comment: Speci men Type: BLOOD SPECIMENOrdering Facility: [facility] Address: [address] [place] [address] Performed By: #### 5 7021-8 ####[facility] LABIA [id number] [place] [address] Monocytes/100 WBC (Bld) 17.2 % Normal [facility] Comment on above: Order Comment: Speci men Type: BLOOD SPECIMENOrdering Facility: [facility] Address: [address] [place] [address] Performed By: #### 5 7021-8 ####[facility] LABCLIA [id number] [place] [address] Neutrophils (Bld) [#/Vol] 2.67 10*3/uL Normal 1.45-7.50 [facility] Comment on above: Order Comment: Speci men Type: BLOOD SPECIMENOrdering Facility: [facility] Address: [address] [place] [address] Performed By: #### 5 7021-8 ####[facility] LABCLIA [id number] [place] [address] Neutrophils/100 WBC (Bld) 50.2 % Normal [facility] Comment on above: Order Comment: Speci men Type: BLOOD SPECIMENOrdering Facility: [facility] Address: [address] [place] [address] Performed By: #### 5 7021-8 ####[facility] LABIA [id number] [place] [address] Nucleated RBC (Bld) [#/Vol] 10*3/uL Normal <0.01 [facility] Comment on above: Order Comment: Speci men Type: BLOOD SPECIMENOrdering Facility: [facility] Address: [address] [place] [address] Performed By: #### 5 7021-8 ####[facility] LABIA [id number] [place] [address] Nucleated RBC/100 WBC (Bld) [Ratio] 0.0 /100 WBC Normal [facility] Comment on above: Order Comment: Speci men Type: BLOOD SPECIMENOrdering Facility: [facility] Address: [address] [place] [address] Performed By: #### 5 7021-8 ####[facility] LABIA [id number] [place] [address] Platelet mean volume (Bld) [Entitic vol] 8.9 fL Low 9.0-12.7 [facility] Comment on above: Order Comment: Speci men Type: BLOOD SPECIMENOrdering Facility: [facility] Address: [address] [place] [address] Performed By: #### 5 7021-8 ####[facility] LABCLIA [id number] [place] [address] Platelets (Bld) [#/Vol] 301 10*3/uL Normal 150-400 [facility] Comment on above: Order Comment: Speci men Type: BLOOD SPECIMENOrdering Facility: [facility] Address: [address] [place] [address] Performed By: #### 5 7021-8 ####[facility]EN[facility] [id number] [place] [address] RBC (Bld) [#/Vol] 3.81 10*6/uL Low 4.20-6.00 [facility] Comment on above: Order Comment: Speci men Type: BLOOD SPECIMENOrdering Facility: [facility] Address: [address] [place] [address] Performed By: #### 5 7021-8 ####[facility] LABIA [id number] [place] [address] WBC (Bld) [#/Vol] 5.30 10*3/uL Normal 3.70-11.00 [facility] Comment on above: Order Comment: Speci men Type: BLOOD SPECIMENOrdering Facility: [facility] Address: [address] [place] [address] Performed By: #### 5 7021-8 ####[facility] LABIA [id number] [place] [address] [facility] CBC W AUTO DIFF BLDon [facility] BASOPHILS # BLD AUTO <0.03 [facility] DIFFERENTIAL METHOD BLD Auto [facility] EOSINOPHIL # BLD AUTO 0.04 [facility] LYMPHOCYTES # BLD AUTO 1.62 [facility] MONOCYTES # BLD AUTO 0.91 High [facility] NEUTROPHILS # BLD AUTO 2.67 [facility] NRBC # BLD AUTO <0.01 [facility] NRBC/100 WBC BLD-RTO 0 /100 WBC [facility] PLATELET # BLD AUTO 301 [facility] PMV BLD AUTO 8.9 fL Low 9.0 - 12.7 fL [facility] WBC # BLD AUTO 5.3 [facility] IMM GRANULOCYTES # BLD AUTO 0.04 [facility] IMM GRANULOCYTES/LEUK NFR BLD AUTO 0.8 % [facility] Specimen Type: BLOOD SPECIMEN [facility] Address: [address] [place] [address] Original Ordering Provider: [facility] CNOVSPon 03-05-2024 CNOVSP Normal [facility] Cancer Ag19-9 SerPl-aCncon 1 Cancer Ag 19-9 Qn 385.0 [arb'U]/mL High <36.0 [facility] Comment on above: Order Comment: Speci men Type: BLOOD SPECIMENOrdering Facility: [facility] Address: [address] [place] [address] Result Comment: [facility] er antigen 19-9 test is used as an aid in monitoring response to treatment or recurrence in patients with established pancreatic, hepatobiliary, or gastrointestinal malignancies. Clinical correlation is required.The CA 19-9 Antigen test was performed using the [employer] [place] [employer] DXI paramagnetic particle chemiluminescent immunoassay method. Results obtained with different assay methods or kits cannot be used interchangeably. Performed By: #### 2 4108-3 ####[facility] LABCLIA [id number] [place] [address] [place] Comprehensive metabolic 2000 panelOrdered By: Elizabeth Yu on 03-05-2024 Albumin [Mass/Vol] 3.9 g/dL 3.9 - 4.9 g/dL [facility] ALP [Catalytic activity/Vol] 177 U/L High 38 - 113 U/L [facility] ALT [Catalytic activity/Vol] 17 U/L 10 - 54 U/L [facility] Anion gap [Moles/Vol] 11 mmol/L 8 - 15 mmol/L [facility] AST [Catalytic activity/Vol] 19 U/L 14 - 40 U/L [facility] Bilirubin [Mass/Vol] 0.7 mg/dL 0.2 - 1 .3 mg/dL [facility] Calcium [Mass/Vol] 10.2 mg/dL 8.5 - 10. 2 mg/dL [facility] Chloride [Moles/Vol] 105 mmol/L 98 - 10 7 mmol/L [facility] CO2 [Moles/Vol] 22 mmol/L 22 - 30 mmol/L [facility] Creatinine [Mass/Vol] 0.81 mg/dL 0.73 - 1.22 mg/dL [facility] GFR/1.73 sq M.predicted among non-blacks MDRD (S/P/Bld) [Vol rate/Area] 94 mL/min/{1.73_m2} - PINF [facility] Comment on above: Estimated Glomerular Filtration [...] 163 mg/dL High 74 - 99 mg/dL [facility] Comment on above: The [place] Diabete s Association (ADA) provides guidance for [...] Standards of Medical Care in Diabetes 2016, [place] [employer]. Diabetes Care. 2016.39(Suppl 1). Interpretation and review of laboratory results Abnormal [facility] Potassium [Moles/Vol] 4.4 mmol/L 3.7 - 5.1 mmol/L [facility] Protein [Mass/Vol] 6.8 g/dL 6.3 - 8.0 g/dL [facility] Sodium [Moles/Vol] 138 mmol/L 136 - 144 mmol/L [facility] Urea nitrogen [Mass/Vol] 14 mg/dL 9 - 24 mg/dL [facility] Comprehensive metabolic 2000 panelon 03-05-2024 Albumin [Mass/Vol] 3.9 g/dL Normal 3.9-4.9 [facility] Comment on above: Order Comment: Speci men Type: BLOOD SPECIMENOrdering Facility: [facility] Address: [address] [place] [address] Performed By: #### 2 4323-8 ####[facility] LABCLIA [id number] [place] [address] ALP [Catalytic activity/Vol] 177 U/L High 38-113 [facility] Comment on above: Order Comment: Speci men Type: BLOOD SPECIMENOrdering Facility: [facility] Address: [address] [place] [address] Performed By: #### 2 4323-8 ####[facility] LABCLIA [id number] [place] [address] ALT [Catalytic activity/Vol] 17 U/L Normal 10-54 [facility] Comment on above: Order Comment: Speci men Type: BLOOD SPECIMENOrdering Facility: [facility] Address: [address] [place] [address] Performed By: #### 2 4323-8 ####[facility] LABCLIA [id number] [place] [address] Anion gap [Moles/Vol] 11 mmol/L Normal 8-15 [facility] Comment on above: Order Comment: Speci men Type: BLOOD SPECIMENOrdering Facility: [facility] Address: [address] [place] [address] Performed By: #### 2 4323-8 ####[facility] LABCLIA [id number] [place] [address] AST [Catalytic activity/Vol] 19 U/L Normal 14-40 [facility] Comment on above: Order Comment: Speci men Type: BLOOD SPECIMENOrdering Facility: [facility] Address: [address] [place] [address] Performed By: #### 2 4323-8 ####[facility] LABCLIA [id number] [place] [address] Bilirubin [Mass/Vol] 0.7 mg/dL Normal 0.2-1.3 [facility] Comment on above: Order Comment: Speci men Type: BLOOD SPECIMENOrdering Facility: [facility] Address: [address] [place] [address] Performed By: #### 2 4323-8 ####[facility] LABCLIA [id number] [place] [address] Calcium [Mass/Vol] 10.2 mg/dL Normal 8.5-10.2 [facility] Comment on above: Order Comment: Speci men Type: BLOOD SPECIMENOrdering Facility: [facility] Address: [address] [place] [address] Performed By: #### 2 4323-8 ####[facility] LABCLIA [id number] [place] [address] Chloride [Moles/Vol] 105 mmol/L Normal 98-107 [facility] Comment on above: Order Comment: Speci men Type: BLOOD SPECIMENOrdering Facility: [facility] Address: [address] [place] [address] Performed By: #### 2 4323-8 ####[facility] LABCLIA [id number] [place] [address] CO2 [Moles/Vol] 22 mmol/L Normal 22-30 [facility] Comment on above: Order Comment: Speci men Type: BLOOD SPECIMENOrdering Facility: [facility] Address: [address] [place] [address] Performed By: #### 2 4323-8 ####[facility] LABCLIA [id number] [place] [address] Creatinine [Mass/Vol] 0.81 mg/dL Normal 0.73-1.22 [facility] Comment on above: Order Comment: Noemí hoff Type: BLOOD SPECIMENOrdering Facility: [facility] Address: [address] [place] [address] Performed By: #### 2 4323-8 ####[facility] LABCLIA [id number] [place] [address] Creatinine and Glomerular filtration rate.predicted panel (S/P/Bld) 94 mL/min/1.73m??? Normal >=60 [facility] Comment on above: Order Comment: Noemí hoff Type: BLOOD SPECIMENOrdering Facility: [facility] Address: [address] [place] [address] Result Comment: Kathy mated Glomerular Filtration Rate [...] actual GFR. Performed By: #### 2 4323-8 ####[facility] LABCLIA [id number] [place] [address] Glucose [Mass/Vol] 163 mg/dL High 74-99 [facility] Comment on above: Order Comment: Noemí hoff Type: BLOOD SPECIMENOrdering Facility: [facility] Address: [address] [place], [place] [address] Result Comment: The [place] Diabetes Association (ADA) provides guidance for cutoff [...] Standards of Medical Care in Diabetes 2016, [place] [employer]. Diabetes Care. 2016.39(Suppl 1). Performed By: #### 2 4323-8 ####[facility] LABCLIA [id number] [place] [address] Potassium [Moles/Vol] 4.4 mmol/L Normal 3.7-5.1 [facility] Comment on above: Order Comment: Speci men Type: BLOOD SPECIMENOrdering Facility: [facility] Address: [address] [place] [address] Performed By: #### 2 4323-8 ####[facility] LABCLIA [id number] [place] [address] Protein [Mass/Vol] 6.8 g/dL Normal 6.3-8.0 [facility] Comment on above: Order Comment: Speci men Type: BLOOD SPECIMENOrdering Facility: [facility] Address: [address] [place] [address] Performed By: #### 2 4323-8 ####[facility] LABCLIA [id number] [place] [address] Sodium [Moles/Vol] 138 mmol/L Normal 136-144 [facility] Comment on above: Order Comment: Speci men Type: BLOOD SPECIMENOrdering Facility: [facility] Address: [address] [place] [address] Performed By: #### 2 4323-8 ####[facility] LABCLIA [id number] [place] [address] Urea nitrogen [Mass/Vol] 14 mg/dL Normal 9-24 [facility] Comment on above: Order Comment: Speci men Type: BLOOD SPECIMENOrdering Facility: [facility] Address: [address] [place] [address] Performed By: #### 2 4323-8 ####[facility] LABCLIA [id number] [place] [address] Laboratory - Hematology and Cell countson 03-05-2024 Basophils/100 WBC (Bld) 0.4 % [facility] Eosinophils/100 WBC (Bld) 0.8 % [facility] Erythrocyte distribution width (RBC) [Ratio] 16.4 % High 11.5 - 15.0 % [facility] Hematocrit (Bld) [Volume fraction] 35.6 % Low 39.0 - 51.0 % [facility] Hemoglobin (Bld) [Mass/Vol] 11.6 g/dL Low 13.0 - 17.0 g/dL [facility] [facility] Lymphocytes/100 WBC (Bld) 30.6 % [facility] MCH (RBC) [Entitic mass] 30.4 pg 26.0 - 34.0 pg [facility] MCHC (RBC) [Mass/Vol] 32.6 g/dL 30.5 - 36.0 g/dL [facility] MCV (RBC) [Entitic vol] 93.4 fL 80.0 - 100.0 fL [facility] Monocytes/100 WBC (Bld) 17.2 % [facility] Neutrophils/100 WBC (Bld) 50.2 % [facility] RBC (Bld) [#/Vol] 3.81 10*6/uL Low 4.20 - 6.0 0 m/uL [facility] No Panel Informationon 03-05 Interpretation and review of laboratory results Abnormal [facility] CBC W Auto Differential pane l (Bld)on 02-12-2024 Basophils (Bld) [#/Vol] NINF [facility] Basophils/100 WBC (Bld) 0.4 % [facility] Differential cell count method Nom (Bld) Auto [facility] Eosinophils (Bld) [#/Vol] 0.06 10*3/uL NINF [facility] Eosinophils/100 WBC (Bld) 1.3 % [facility] Erythrocyte distribution width (RBC) [Ratio] 16.0 % High 11.5 - 15.0 % [facility] Hematocrit (Bld) [Volume fraction] 34.0 % Low 39.0 - 51.0 % [facility] Hemoglobin (Bld) [Mass/Vol] 11.3 g/dL Low 13.0 - 17.0 g/dL [facility] Immature granulocytes (Bld) [#/Vol] [facility] Immature granulocytes/100 WBC (Bld) 0.4 % [facility] Interpretation and review of laboratory results Abnormal [facility] Lymphocytes (Bld) [#/Vol] 1.65 10*3/uL [facility] Lymphocytes/100 WBC (Bld) 35.9 % [facility] MCH (RBC) [Entitic mass] 30.5 pg 26.0 - 34.0 pg [facility] MCHC (RBC) [Mass/Vol] 33.2 g/dL 30.5 - 36.0 g/dL [facility] MCV (RBC) [Entitic vol] 91.9 fL 80.0 - 100.0 fL [facility] Monocytes (Bld) [#/Vol] 0.63 10*3/uL [facility] Monocytes/100 WBC (Bld) 13.7 % [facility] Neutrophils (Bld) [#/Vol] 2.22 10*3/uL [facility] Neutrophils/100 WBC (Bld) 48.3 % [facility] Nucleated RBC (Bld) [#/Vol] [facility] Nucleated RBC/100 WBC (Bld) [Ratio] 0.0 % /100 WBC [facility] Platelet mean volume (Bld) [Entitic vol] 9.0 fL 9.0 - 12.7 fL [facility] Platelets (Bld) [#/Vol] 291 10*3/uL [facility] RBC (Bld) [#/Vol] 3.70 10*6/uL Low 4.20 - 6.0 0 m/uL [facility] WBC (Bld) [#/Vol] 4.60 10*3/uL [facility] Basophils (Bld) [#/Vol] 10*3/uL Normal <0.11 [facility] Comment on above: Order Comment: Speci men Type: BLOOD SPECIMENOrdering Facility: [facility] Address: [address] [place] [address] Performed By: #### 5 7021-8 ####[facility] LABCLIA [id number] [place] [address] Basophils/100 WBC (Bld) 0.4 % Normal [facility] Comment on above: Order Comment: Speci men Type: BLOOD SPECIMENOrdering Facility: [facility] Address: [address] [place] [address] Performed By: #### 5 7021-8 ####[facility] LABCLIA [id number] [place] [address] Differential cell count method Nom (Bld) Auto Normal [facility] Comment on above: Order Comment: Speci men Type: BLOOD SPECIMENOrdering Facility: [facility] Address: [address] [place] [address] Performed By: #### 5 7021-8 ####[facility] LABCLIA [id number] [place] [address] Eosinophils (Bld) [#/Vol] 0.06 10*3/uL Normal <0.46 [facility] Comment on above: Order Comment: Speci men Type: BLOOD SPECIMENOrdering Facility: [facility] Address: [address] [place] [address] Performed By: #### 5 7021-8 ####[facility] LABCLIA [id number] [place] [address] Eosinophils/100 WBC (Bld) 1.3 % Normal [facility] Comment on above: Order Comment: Speci men Type: BLOOD SPECIMENOrdering Facility: [facility] Address: [address] [place] [address] Performed By: #### 5 7021-8 ####[facility] LABCLIA [id number] [place] [address] Erythrocyte distribution width (RBC) [Ratio] 16.0 % High 11.5-15.0 [facility] Comment on above: Order Comment: Speci men Type: BLOOD SPECIMENOrdering Facility: [facility] Address: [address] [place] [address] Performed By: #### 5 7021-8 ####[facility] LABCLIA [id number] [place] [address] Hematocrit (Bld) [Volume fraction] 34.0 % Low 39.0-51.0 [facility] Comment on above: Order Comment: Speci men Type: BLOOD SPECIMENOrdering Facility: [facility] Address: [address] [place] [address] Performed By: #### 5 7021-8 ####[facility] LABCLIA [id number] [place] [address] Hemoglobin (Bld) [Mass/Vol] 11.3 g/dL Low 13.0-17.0 [facility] Comment on above: Order Comment: Speci men Type: BLOOD SPECIMENOrdering Facility: [facility] Address: [address] [place] [address] Performed By: #### 5 7021-8 ####[facility] LABCLIA [id number] [place] [address] Immature granulocytes (Bld) [#/Vol] 10*3/uL Normal <0.10 [facility] Comment on above: Order Comment: Speci men Type: BLOOD SPECIMENOrdering Facility: [facility] Address: [address] [place] [address] Performed By: #### 5 7021-8 ####[facility] LABCLIA [id number] [place] [address] Immature granulocytes/100 WBC (Bld) 0.4 % Normal [facility] Comment on above: Order Comment: Speci men Type: BLOOD SPECIMENOrdering Facility: [facility] Address: [address] [place] [address] Performed By: #### 5 7021-8 ####[facility] LABCLIA [id number] [place] [address] Lymphocytes (Bld) [#/Vol] 1.65 10*3/uL Normal 1.00-4.00 [facility] Comment on above: Order Comment: Speci men Type: BLOOD SPECIMENOrdering Facility: [facility] Address: [address] [place] [address] Performed By: #### 5 7021-8 ####[facility] LABCLIA [id number] [place] [address] Lymphocytes/100 WBC (Bld) 35.9 % Normal [facility] Comment on above: Order Comment: Speci men Type: BLOOD SPECIMENOrdering Facility: [facility] Address: [address] [place] [address] Performed By: #### 5 7021-8 ####[facility] LABCLIA [id number] [place] [address] MCH (RBC) [Entitic mass] 30.5 pg Normal 26.0-34.0 [facility] Comment on above: Order Comment: Speci men Type: BLOOD SPECIMENOrdering Facility: [facility] Address: [address] [place] [address] Performed By: #### 5 7021-8 ####[facility] LABCLIA [id number] [place] [address] MCHC (RBC) [Mass/Vol] 33.2 g/dL Normal 30.5-36.0 [facility] Comment on above: Order Comment: Speci men Type: BLOOD SPECIMENOrdering Facility: [facility] Address: [address] [place] [address] Performed By: #### 5 7021-8 ####[facility] LABCLIA [id number] [place] [address] MCV (RBC) [Entitic vol] 91.9 fL Normal 80.0-100.0 [facility] Comment on above: Order Comment: Speci men Type: BLOOD SPECIMENOrdering Facility: [facility] Address: [address] [place] [address] Performed By: #### 5 7021-8 ####[facility] LABCLIA [id number] [place] [address] Monocytes (Bld) [#/Vol] 0.63 10*3/uL Normal <0.87 [facility] Comment on above: Order Comment: Speci men Type: BLOOD SPECIMENOrdering Facility: [facility] Address: [address] [place] [address] Performed By: #### 5 7021-8 ####[facility] LABCLIA [id number] [place] [address] Monocytes/100 WBC (Bld) 13.7 % Normal [facility] Comment on above: Order Comment: Speci men Type: BLOOD SPECIMENOrdering Facility: [facility] Address: [address] [place] [address] Performed By: #### 5 7021-8 ####[facility] LABCLIA [id number] [place] [address] Neutrophils (Bld) [#/Vol] 2.22 10*3/uL Normal 1.45-7.50 [facility] Comment on above: Order Comment: Speci men Type: BLOOD SPECIMENOrdering Facility: [facility] Address: [address] [place] [address] Performed By: #### 5 7021-8 ####[facility] LABCLIA [id number] [place] [address] Neutrophils/100 WBC (Bld) 48.3 % Normal [facility] Comment on above: Order Comment: Speci men Type: BLOOD SPECIMENOrdering Facility: [facility] Address: [address] [place] [address] Performed By: #### 5 7021-8 ####[facility] LABCLIA [id number] [place] [address] Nucleated RBC (Bld) [#/Vol] 10*3/uL Normal <0.01 [facility] Comment on above: Order Comment: Speci men Type: BLOOD SPECIMENOrdering Facility: [facility] Address: [address] [place] [address] Performed By: #### 5 7021-8 ####[facility] LABCLIA [id number] [place] [address] Nucleated RBC/100 WBC (Bld) [Ratio] 0.0 /100 WBC Normal [facility] Comment on above: Order Comment: Speci men Type: BLOOD SPECIMENOrdering Facility: [facility] Address: [address] [place] [address] Performed By: #### 5 7021-8 ####[facility] LABCLIA [id number] [place] [address] Platelet mean volume (Bld) [Entitic vol] 9.0 fL Normal 9.0-12.7 [facility] Comment on above: Order Comment: Speci men Type: BLOOD SPECIMENOrdering Facility: [facility] Address: [address] [place] [address] Performed By: #### 5 7021-8 ####[facility] LABIA [id number] [place] [address] Platelets (Bld) [#/Vol] 291 10*3/uL Normal 150-400 [facility] Comment on above: Order Comment: Speci men Type: BLOOD SPECIMENOrdering Facility: [facility] Address: [address] [place] [address] Performed By: #### 5 7021-8 ####[facility] LABIA [id number] [place] [address] RBC (Bld) [#/Vol] 3.70 10*6/uL Low 4.20-6.00 [facility] Comment on above: Order Comment: Speci men Type: BLOOD SPECIMENOrdering Facility: [facility] Address: [address] [place] [address] Performed By: #### 5 7021-8 ####[facility] LABIA [id number] [place] [address] WBC (Bld) [#/Vol] 4.60 10*3/uL Normal 3.70-11.00 [facility] Comment on above: Order Comment: Speci men Type: BLOOD SPECIMENOrdering Facility: [facility] Address: [address] [place] [id number] Performed By: #### 5 7021-8 ####[facility] LABCLIA [id number] [place] [address] CNOVSPon 02-12-2024 CNOVSP Normal [facility] Cancer Ag19-9 SerPl-aCncon 0 02-12-2024 Cancer Ag 19-9 Qn 371.0 [arb'U]/mL High <36.0 [facility] Comment on above: Order Comment: Speci men Type: BLOOD SPECIMENOrdering Facility: [facility] Address: [address] [place], [place] [address] Result Comment: [facility] er antigen 19-9 test is used as an aid in monitoring response to treatment or recurrence in patients with established pancreatic, hepatobiliary, or gastrointestinal malignancies. Clinical correlation is required.The CA 19-9 Antigen test was performed using the [facility] DXI paramagnetic particle chemiluminescent immunoassay method. Results obtained with different assay methods or kits cannot be used interchangeably. Performed By: #### 2 4108-3 ####[facility] LABCLIA [id number] [place] [id number] [place] Comprehensive metabolic 2000 panelOrdered By: Elizabeth Yu on 02-12-2024 Albumin [Mass/Vol] 4.1 g/dL 3.9 - 4.9 g/dL [facility] ALP [Catalytic activity/Vol] 184 U/L High 38 - 113 U/L [facility] ALT [Catalytic activity/Vol] 12 U/L 10 - 54 U/L [facility] Anion gap [Moles/Vol] 11 mmol/L 8 - 15 mmol/L [facility] AST [Catalytic activity/Vol] 12 U/L Low 14 - 40 U/L [facility] Bilirubin [Mass/Vol] 0.7 mg/dL 0.2 - 1 .3 mg/dL [facility] Calcium [Mass/Vol] 10.6 mg/dL High 8.5 - 10. 2 mg/dL [facility] Chloride [Moles/Vol] 104 mmol/L 98 - 10 7 mmol/L [facility] CO2 [Moles/Vol] 23 mmol/L 22 - 30 mmol/L [facility] Creatinine [Mass/Vol] 0.80 mg/dL 0.73 - 1.22 mg/dL [facility] GFR/1.73 sq M.predicted among non-blacks MDRD (S/P/Bld) [Vol rate/Area] 94 mL/min/{1.73_m2} - PINF [facility] Comment on above: Estimated Glomerular Filtration [...] 201 mg/dL High 74 - 99 mg/dL [facility] Comment on above: The [place] Diab[employer] Association (ADA) provides guidance for [...] Standards of Medical Care in Diabetes 2016, [place] [employer]. Diabetes Care. 2016.39(Suppl 1). Interpretation and review of laboratory results Abnormal [facility] Potassium [Moles/Vol] 4.5 mmol/L 3.7 - 5.1 mmol/L [facility] Protein [Mass/Vol] 6.8 g/dL 6.3 - 8.0 g/dL [facility] Sodium [Moles/Vol] 138 mmol/L 136 - 144 mmol/L [facility] Urea nitrogen [Mass/Vol] 12 mg/dL 9 - 24 mg/dL [facility] Comprehensive metabolic 2000 panelon 02-12-2024 Albumin [Mass/Vol] 4.1 g/dL Normal 3.9-4.9 [facility] Comment on above: Order Comment: Speci men Type: BLOOD SPECIMENOrdering Facility: [facility] Address: [address] [place] [address] Performed By: #### 2 4323-8 ####[facility] LABCLIA [id number] [place] [address] ALP [Catalytic activity/Vol] 184 U/L High 38-113 [facility] Comment on above: Order Comment: Speci men Type: BLOOD SPECIMENOrdering Facility: [facility] Address: [address] [place] [address] Performed By: #### 2 4323-8 ####[facility] LABCLIA [id number] [place] [address] ALT [Catalytic activity/Vol] 12 U/L Normal 10-54 [facility] Comment on above: Order Comment: Speci men Type: BLOOD SPECIMENOrdering Facility: [facility] Address: [address] [place] [address] Performed By: #### 2 4323-8 ####[facility] LABCLIA [id number] [place] [address] Anion gap [Moles/Vol] 11 mmol/L Normal 8-15 [facility] Comment on above: Order Comment: Speci men Type: BLOOD SPECIMENOrdering Facility: [facility] Address: [address] [place] [address] Performed By: #### 2 4323-8 ####[facility] LABCLIA [id number] [place] [address] AST [Catalytic activity/Vol] 12 U/L Low 14-40 [facility] Comment on above: Order Comment: Speci men Type: BLOOD SPECIMENOrdering Facility: [facility] Address: [address] [place] [address] Performed By: #### 2 4323-8 ####[facility] LABCLIA [id number] [place] [address] Bilirubin [Mass/Vol] 0.7 mg/dL Normal 0.2-1.3 [facility] Comment on above: Order Comment: Speci men Type: BLOOD SPECIMENOrdering Facility: [facility] Address: [address] [place] [address] Performed By: #### 2 4323-8 ####[facility] LABCLIA [id number] [place] [address] Calcium [Mass/Vol] 10.6 mg/dL High 8.5-10.2 [facility] Comment on above: Order Comment: Speci men Type: BLOOD SPECIMENOrdering Facility: [facility] Address: [address] [place] [address] Performed By: #### 2 4323-8 ####[facility] LABCLIA [id number] [place] [address] Chloride [Moles/Vol] 104 mmol/L Normal 98-107 [facility] Comment on above: Order Comment: Speci men Type: BLOOD SPECIMENOrdering Facility: [facility] Address: [address] [place] [address] Performed By: #### 2 4323-8 ####[facility] LABCLIA [id number] [place] [address] CO2 [Moles/Vol] 23 mmol/L Normal 22-30 [facility] Comment on above: Order Comment: Speci men Type: BLOOD SPECIMENOrdering Facility: [facility] Address: [address] [place] [address] Performed By: #### 2 4323-8 ####[facility] LABCLIA [id number] [place] [address] Creatinine [Mass/Vol] 0.80 mg/dL Normal 0.73-1.22 [facility] Comment on above: Order Comment: Speci men Type: BLOOD SPECIMENOrdering Facility: [facility] Address: [address] [place] [address] Performed By: #### 2 4323-8 ####[facility] LABCLIA [id number] [place] [address] Creatinine and Glomerular filtration rate.predicted panel (S/P/Bld) 94 mL/min/1.73m??? Normal >=60 [facility] Comment on above: Order Comment: Specmack hoff Type: BLOOD SPECIMENOrdering Facility: [facility] Address: [address] [place] [address] Result Comment: Kathy mated Glomerular Filtration Rate [...] actual GFR. Performed By: #### 2 4323-8 ####[facility] LABCLIA [id number] [place] [address] Glucose [Mass/Vol] 201 mg/dL High 74-99 [facility] Comment on above: Order Comment: Specmack hoff Type: BLOOD SPECIMENOrdering Facility: [facility] Address: [address] [place] [address] Result Comment: The [place] Diabetes Association (ADA) provides guidance for cutoff [...] Standards of Medical Care in Diabetes 2016, [place] [employer]. Diabetes Care. 2016.39(Suppl 1). Performed By: #### 2 4323-8 ####[facility] LABCLIA [id number] [place] [address] Potassium [Moles/Vol] 4.5 mmol/L Normal 3.7-5.1 [facility] Comment on above: Order Comment: Speci men Type: BLOOD SPECIMENOrdering Facility: [facility] Address: [address] [place] [address] Performed By: #### 2 4323-8 ####[facility] LABCLIA [id number] [place] [address] Protein [Mass/Vol] 6.8 g/dL Normal 6.3-8.0 [facility] Comment on above: Order Comment: Speci men Type: BLOOD SPECIMENOrdering Facility: [facility] Address: [address] [place] [address] Performed By: #### 2 4323-8 ####[facility] LABCLIA [id number] [place] [address] Sodium [Moles/Vol] 138 mmol/L Normal 136-144 [facility] Comment on above: Order Comment: Speci men Type: BLOOD SPECIMENOrdering Facility: [facility] Address: [address] [place] [address] Performed By: #### 2 4323-8 ####[facility] LABCLIA [id number] [place] [address] Urea nitrogen [Mass/Vol] 12 mg/dL Normal 9-24 [facility] Comment on above: Order Comment: Speci men Type: BLOOD SPECIMENOrdering Facility: [facility] Address: [address] [place] [address] Performed By: #### 2 4323-8 ####[facility] LABCLIA [id number] [place] [address] CBC W Auto Differential pane l (Bld)on 01-23-2024 Basophils (Bld) [#/Vol] [facility] Basophils/100 WBC (Bld) 0.4 % [facility] Differential cell count method Nom (Bld) Auto [facility] Eosinophils (Bld) [#/Vol] 0.05 10*3/uL [facility] Eosinophils/100 WBC (Bld) 1.1 % [facility] Erythrocyte distribution width (RBC) [Ratio] 15.8 % High 11.5 - 15.0 % [facility] Hematocrit (Bld) [Volume fraction] 35.1 % Low 39.0 - 51.0 % [facility] Hemoglobin (Bld) [Mass/Vol] 11.5 g/dL Low 13.0 - 17.0 g/dL [facility] Immature granulocytes (Bld) [#/Vol] [facility] Immature granulocytes/100 WBC (Bld) 0.4 % [facility] Interpretation and review of laboratory results Abnormal [facility] Lymphocytes (Bld) [#/Vol] 1.62 10*3/uL [facility] Lymphocytes/100 WBC (Bld) 35.7 % [facility] MCH (RBC) [Entitic mass] 29.9 pg 26.0 - 34.0 pg [facility] MCHC (RBC) [Mass/Vol] 32.8 g/dL 30.5 - 36.0 g/dL [facility] MCV (RBC) [Entitic vol] 91.4 fL 80.0 - 100.0 fL [facility] Monocytes (Bld) [#/Vol] 0.59 10*3/uL [facility] Monocytes/100 WBC (Bld) 13.0 % [facility] Neutrophils (Bld) [#/Vol] 2.24 10*3/uL [facility] Neutrophils/100 WBC (Bld) 49.4 % [facility] Nucleated RBC (Bld) [#/Vol] [facility] Nucleated RBC/100 WBC (Bld) [Ratio] 0.0 % /100 WBC [facility] Platelet mean volume (Bld) [Entitic vol] 9.0 fL 9.0 - 12.7 fL [facility] Platelets (Bld) [#/Vol] 277 10*3/uL [facility] RBC (Bld) [#/Vol] 3.84 10*6/uL Low 4.20 - 6.0 0 m/uL [facility] WBC (Bld) [#/Vol] 4.54 10*3/uL [facility] Basophils (Bld) [#/Vol] 10*3/uL Normal <0.11 [facility] Comment on above: Order Comment: Speci men Type: BLOOD SPECIMENOrdering Facility: [facility] Address: [address] [place] [address] Performed By: #### 5 7021-8 ####[facility] LABCLIA [id number] [place] [address] Basophils/100 WBC (Bld) 0.4 % Normal [facility] Comment on above: Order Comment: Speci men Type: BLOOD SPECIMENOrdering Facility: [facility] Address: [address] [place] [address] Performed By: #### 5 7021-8 ####[facility] LABCLIA [id number] [place] [address] Differential cell count method Nom (Bld) Auto Normal [facility] Comment on above: Order Comment: Speci men Type: BLOOD SPECIMENOrdering Facility: [facility] Address: [address] [place] [address] Performed By: #### 5 7021-8 ####[facility] LABCLIA [id number] [place] [address] Eosinophils (Bld) [#/Vol] 0.05 10*3/uL Normal <0.46 [facility] Comment on above: Order Comment: Speci men Type: BLOOD SPECIMENOrdering Facility: [facility] Address: [address] [place] [address] Performed By: #### 5 7021-8 ####[facility] LABCLIA [id number] [place] [address] Eosinophils/100 WBC (Bld) 1.1 % Normal [facility] Comment on above: Order Comment: Speci men Type: BLOOD SPECIMENOrdering Facility: [facility] Address: [address] [place] [address] Performed By: #### 5 7021-8 ####[facility] LABCLIA [id number] [place] [address] Erythrocyte distribution width (RBC) [Ratio] 15.8 % High 11.5-15.0 [facility] Comment on above: Order Comment: Speci men Type: BLOOD SPECIMENOrdering Facility: [facility] Address: [address] [place] [address] Performed By: #### 5 7021-8 ####[facility] LABCLIA [id number] [place] [address] Hematocrit (Bld) [Volume fraction] 35.1 % Low 39.0-51.0 [facility] Comment on above: Order Comment: Speci men Type: BLOOD SPECIMENOrdering Facility: [facility] Address: [address] [place] [address] Performed By: #### 5 7021-8 ####[facility] LABCLIA [id number] [place] [address] Hemoglobin (Bld) [Mass/Vol] 11.5 g/dL Low 13.0-17.0 [facility] [facility] Comment on above: Order Comment: Speci men Type: BLOOD SPECIMENOrdering Facility: [facility] Address: [address] [place] [address] Performed By: #### 5 7021-8 ####[facility] LABIA [id number] [place] [address] Immature granulocytes (Bld) [#/Vol] 10*3/uL Normal <0.10 [facility] Comment on above: Order Comment: Speci men Type: BLOOD SPECIMENOrdering Facility: [facility] Address: [address] [place] [address] Performed By: #### 5 7021-8 ####[facility] LABIA [id number] [place] [address] Immature granulocytes/100 WBC (Bld) 0.4 % Normal [facility] Comment on above: Order Comment: Speci men Type: BLOOD SPECIMENOrdering Facility: [facility] Address: [address] [place] [address] Performed By: #### 5 7021-8 ####[facility] LABCLIA [id number] [place] [address] Lymphocytes (Bld) [#/Vol] 1.62 10*3/uL Normal 1.00-4.00 [facility] Comment on above: Order Comment: Speci men Type: BLOOD SPECIMENOrdering Facility: [facility] Address: [address] [place] [address] Performed By: #### 5 7021-8 ####[facility] LABCLIA [id number] [place] [address] Lymphocytes/100 WBC (Bld) 35.7 % Normal [facility] Comment on above: Order Comment: Speci men Type: BLOOD SPECIMENOrdering Facility: [facility] Address: [address] [place] [address] Performed By: #### 5 7021-8 ####[facility] LABCLIA [id number] [place] [address] MCH (RBC) [Entitic mass] 29.9 pg Normal 26.0-34.0 [facility] Comment on above: Order Comment: Speci men Type: BLOOD SPECIMENOrdering Facility: [facility] Address: [address] [place] [address] Performed By: #### 5 7021-8 ####[facility] LABCLIA [id number] [place] [address] MCHC (RBC) [Mass/Vol] 32.8 g/dL Normal 30.5-36.0 [facility] Comment on above: Order Comment: Speci men Type: BLOOD SPECIMENOrdering Facility: [facility] Address: [address] [place] [address] Performed By: #### 5 7021-8 ####[facility] LABIA [id number] [place] [address] MCV (RBC) [Entitic vol] 91.4 fL Normal 80.0-100.0 [facility] Comment on above: Order Comment: Speci men Type: BLOOD SPECIMENOrdering Facility: [facility] Address: [address] [place] [address] Performed By: #### 5 7021-8 ####[facility] LABCLIA [id number] [place] [address] Monocytes (Bld) [#/Vol] 0.59 10*3/uL Normal <0.87 [facility] Comment on above: Order Comment: Speci men Type: BLOOD SPECIMENOrdering Facility: [facility] Address: [address] [place] [address] Performed By: #### 5 7021-8 ####[facility] LABCLIA [id number] [place] [address] Monocytes/100 WBC (Bld) 13.0 % Normal [facility] Comment on above: Order Comment: Speci men Type: BLOOD SPECIMENOrdering Facility: [facility] Address: [address] [place] [address] Performed By: #### 5 7021-8 ####[facility] LABCLIA [id number] [place] [address] Neutrophils (Bld) [#/Vol] 2.24 10*3/uL Normal 1.45-7.50 [facility] Comment on above: Order Comment: Speci men Type: BLOOD SPECIMENOrdering Facility: [facility] Address: [address] [place] [address] Performed By: #### 5 7021-8 ####[facility] LABCLIA [id number] [place] [address] Neutrophils/100 WBC (Bld) 49.4 % Normal [facility] Comment on above: Order Comment: Speci men Type: BLOOD SPECIMENOrdering Facility: [facility] Address: [address] [place] [address] Performed By: #### 5 7021-8 ####[facility] LABCLIA [id number] [place] [address] Nucleated RBC (Bld) [#/Vol] 10*3/uL Normal <0.01 [facility] Comment on above: Order Comment: Speci men Type: BLOOD SPECIMENOrdering Facility: [facility] Address: [address] [place] [address] Performed By: #### 5 7021-8 ####[facility] LABCLIA [id number] [place] [address] Nucleated RBC/100 WBC (Bld) [Ratio] 0.0 /100 WBC Normal [facility] Comment on above: Order Comment: Speci men Type: BLOOD SPECIMENOrdering Facility: [facility] Address: [address] [place] [address] Performed By: #### 5 7021-8 ####[facility] LABCLIA [id number] [place] [address] Platelet mean volume (Bld) [Entitic vol] 9.0 fL Normal 9.0-12.7 [facility] Comment on above: Order Comment: Speci men Type: BLOOD SPECIMENOrdering Facility: [facility] Address: [address] [place] [address] Performed By: #### 5 7021-8 ####[facility] LABCLIA [id number] [place] [address] Platelets (Bld) [#/Vol] 277 10*3/uL Normal 150-400 [facility] Comment on above: Order Comment: Speci men Type: BLOOD SPECIMENOrdering Facility: [facility] Address: [address] [place] [address] Performed By: #### 5 7021-8 ####[facility] LABCLIA [id number] [place] [address] RBC (Bld) [#/Vol] 3.84 10*6/uL Low 4.20-6.00 [facility] Comment on above: Order Comment: Speci men Type: BLOOD SPECIMENOrdering Facility: [facility] Address: [address] [place] [address] Performed By: #### 5 7021-8 ####[facility] LABCLIA [id number] [place] [address] WBC (Bld) [#/Vol] 4.54 10*3/uL Normal 3.70-11.00 [facility] Comment on above: Order Comment: Speci men Type: BLOOD SPECIMENOrdering Facility: [facility] Address: [address] [place] [address] Performed By: #### 5 7021-8 ####[facility] LABCLIA [id number] [place] [address] CNOVSPon 01-23-2024 CNOVSP Normal [facility] Cancer Ag19-9 SerPl-aCncon 0 01-23-2024 Cancer Ag 19-9 Qn 444.0 [arb'U]/mL High <36.[address] [facility] Comment on above: Order Comment: Speci men Type: BLOOD SPECIMENOrdering Facility: [facility] Address: [address] [place] [address] Result Comment: [facility] er antigen 19-9 test is used as an aid in monitoring response to treatment or recurrence in patients with established pancreatic, hepatobiliary, or gastrointestinal malignancies. Clinical correlation is required.The CA 19-9 Antigen test was performed using the [employer] [place] [employer] DXI paramagnetic particle chemiluminescent immunoassay method. Results obtained with different assay methods or kits cannot be used interchangeably. Performed By: #### 2 4108-3 ####[facility] LABCLIA [id number] [place] [id number] [place] Comprehensive metabolic 2000 panelon 01-23-2024 Albumin [Mass/Vol] 4.0 g/dL Normal 3.9-4.9 [facility] Comment on above: Order Comment: Speci men Type: BLOOD SPECIMENOrdering Facility: [facility] Address: [address] [place] [address] Result Comment: Josh ected result: Previously reported as 4.1 g/dL on 01/23/2024 at 10:24 AM EDT. Performed By: #### 2 4323-8 ####[facility] LABCLIA [id number] [place] [address] [place] ALP [Catalytic activity/Vol] 185 U/L High 38-113 [facility] Comment on above: Order Comment: Speci men Type: BLOOD SPECIMENOrdering Facility: [facility] Address: [address] [place] [address] Result Comment: Josh ected result: Previously reported as 190 U/L on 01/23/2024 at 10:24 AM EDT. Performed By: #### 2 4323-8 ####[facility] LABIA [id number] [address] [place] ALT [Catalytic activity/Vol] 30 U/L Normal 10-54 [facility] Comment on above: Order Comment: Speci men Type: BLOOD SPECIMENOrdering Facility: [facility] Address: [address] [place] [address] Result Comment: Josh ected result: Previously reported as 22 U/L on 01/23/2024 at 10:24 AM EDT. Performed By: #### 2 4323-8 ####[facility] LABIA [id number] [place] [address] [place] Anion gap [Moles/Vol] 15 mmol/L Normal 8-15 [facility] Comment on above: Order Comment: Speci men Type: BLOOD SPECIMENOrdering Facility: [facility] Address: [address] [place] [address] Performed By: #### 2 4323-8 ####[facility] LABIA [id number] [place] [address] [place] AST [Catalytic activity/Vol] 27 U/L Normal 14-40 [facility] Comment on above: Order Comment: Speci men Type: BLOOD SPECIMENOrdering Facility: [facility] Address: [address], [place] [address] Result Comment: Josh ected result: Previously reported as 16 U/L on 01/23/2024 at 10:24 AM EDT. Performed By: #### 2 4323-8 ####[facility] LABCLIA [id number] [place] [address] [place] Bilirubin [Mass/Vol] 0.7 mg/dL Normal 0.2-1.3 [facility] Comment on above: Order Comment: Speci men Type: BLOOD SPECIMENOrdering Facility: [facility] Address: [address] [place] [address] Performed By: #### 2 4323-8 ####[facility] LABIA [id number] [place] [address] [place] Calcium [Mass/Vol] 10.4 mg/dL High 8.5-10.2 [facility] Comment on above: Order Comment: Speci men Type: BLOOD SPECIMENOrdering Facility: [facility] Address: [address] [place] [address] Result Comment: Josh ected result: Previously reported as 10.5 mg/dL on 01/23/2024 at 10:24 AM EDT. Performed By: #### 2 4323-8 ####[facility] LABIA [id number] [place] [address] [place] Chloride [Moles/Vol] 102 mmol/L Normal 98-107 [facility] Comment on above: Order Comment: Speci men Type: BLOOD SPECIMENOrdering Facility: [facility] Address: [address] [place] [address] Result Comment: Resu lt rechecked. Performed By: #### 2 4323-8 ####[facility] LABIA [id number] [place] [address] [place] CO2 [Moles/Vol] 21 mmol/L Low 22-30 [facility] Comment on above: Order Comment: Speci men Type: BLOOD SPECIMENOrdering Facility: [facility] Address: [address] [place] [address] Result Comment: Josh ected result: Previously reported as 24 mmol/L on 01/23/2024 at 10:24 AM EDT. Performed By: #### 2 4323-8 ####[facility] LABCLIA [id number] [place] [address] [place] Creatinine [Mass/Vol] 0.84 mg/dL Normal 0.73-1.22 [facility] Comment on above: Order Comment: Speci men Type: BLOOD SPECIMENOrdering Facility: [facility] Address: [address] [place] [address] Result Comment: Josh ected result: Previously reported as 0.83 mg/dL on 01/23/2024 at 10:24 AM EDT. Performed By: #### 2 4323-8 ####[facility] LABIA [id number] [place] [address] [place] Creatinine and Glomerular filtration rate.predicted panel (S/P/Bld) 93 mL/min/1.73m??? Normal >=60 [facility] Comment on above: Order Comment: Speci men Type: BLOOD SPECIMENOrdering Facility: [facility] Address: [address] [place] [address] Result Comment: Kathy mated Glomerular Filtration Rate [...] actual GFR. Performed By: #### 2 4323-8 ####[facility] LABCLIA [id number] [place] [address] [place] Glucose [Mass/Vol] 144 mg/dL High 74-99 [facility] Comment on above: Order Comment: Speci men Type: BLOOD SPECIMENOrdering Facility: [facility] Address: [address] [place] [address] Result Comment: The [place] [employer] (ADA) provides guidance for cutoff [...] Standards of Medical Care in Diabetes 2016, [place] [employer]. Diabetes Care. 2016.39(Suppl 1).Corrected result: Previously reported as 163 mg/dL on 01/23/2024 at 10:24 AM EDT. Performed By: #### 2 4323-8 ####[facility] LABCLIA [id number] [place] [address] [place] Potassium [Moles/Vol] 4.8 mmol/L Normal 3.7-5.1 [facility] Comment on above: Order Comment: Speci men Type: BLOOD SPECIMENOrdering Facility: [facility] Address: [address] [place] [address] Performed By: #### 2 4323-8 ####[facility] LABCLIA [id number] [place] [address] [place] Protein [Mass/Vol] 7.1 g/dL Normal 6.3-8.0 [facility] Comment on above: Order Comment: Speci men Type: BLOOD SPECIMENOrdering Facility: [facility] Address: [address] [place] [address] Result Comment: Josh ected result: Previously reported as 6.7 g/dL on 01/23/2024 at 10:24 AM EDT. Performed By: #### 2 4323-8 ####[facility] LABCLIA [id number] [place] [address] [place] Sodium [Moles/Vol] 138 mmol/L Normal 136-144 [facility] Comment on above: Order Comment: Speci men Type: BLOOD SPECIMENOrdering Facility: [facility] Address: [address] [place] [address] Result Comment: Resu lt rechecked. Performed By: #### 2 4323-8 ####[facility] LABCLIA [id number] [place] [address] [place] Urea nitrogen [Mass/Vol] 12 mg/dL Normal 9-24 [facility] Comment on above: Order Comment: Speci men Type: BLOOD SPECIMENOrdering Facility: [facility] Address: [address] [place] [address] Performed By: #### 2 4323-8 ####[facility] LABCLIA [id number] [place] [address] [place] CA 19-9on 01-04-2024 Cancer Ag 19-9 Qn 290.0 [arb'U]/mL High NINF - 36.0 U/mL [facility] Comment on above: Cancer antigen 19-9 test is used as an aid in monitoring response to treatment or recurrence in patients with established pancreatic, hepatobiliary, or gastrointestinal malignancies. Clinical correlation is required. The CA 19-9 Antigen test was performed using the [employer] [place] [employer] DXI paramagnetic particle chemiluminescent immunoassay method. Results obtained with different assay methods or kits cannot be used interchangeably. CNPNon 01-04-2024 CNPN Normal [facility] Cancer Ag 19-9 Qnon 01-04-20 24 Interpretation and review of laboratory results Abnormal [facility] CBC W Auto Differential pane l (Bld)on 01-03-2024 Basophils (Bld) [#/Vol] NINF [facility] Basophils/100 WBC (Bld) 0.4 % [facility] Differential cell count method Nom (Bld) Auto [facility] Eosinophils (Bld) [#/Vol] 0.05 10*3/uL [facility] Eosinophils/100 WBC (Bld) 1.0 % [facility] Erythrocyte distribution width (RBC) [Ratio] 15.8 % High 11.5 - 15.0 % [facility] Hematocrit (Bld) [Volume fraction] 33.7 % Low 39.0 - 51.0 % [facility] Hemoglobin (Bld) [Mass/Vol] 11.1 g/dL Low 13.0 - 17.0 g/dL [facility] Immature granulocytes (Bld) [#/Vol] 0.03 10*3/uL [facility] Immature granulocytes/100 WBC (Bld) 0.6 % [facility] Interpretation and review of laboratory results Abnormal [facility] Lymphocytes (Bld) [#/Vol] 1.69 10*3/uL [facility] Lymphocytes/100 WBC (Bld) 32.4 % [facility] MCH (RBC) [Entitic mass] 30.3 pg 26.0 - 34.0 pg [facility] MCHC (RBC) [Mass/Vol] 32.9 g/dL 30.5 - 36.0 g/dL [facility] MCV (RBC) [Entitic vol] 92.1 fL 80.0 - 100.0 fL [facility] Monocytes (Bld) [#/Vol] 0.79 10*3/uL [facility] Monocytes/100 WBC (Bld) 15.1 % [facility] Neutrophils (Bld) [#/Vol] 2.64 10*3/uL [facility] Neutrophils/100 WBC (Bld) 50.5 % [facility] Nucleated RBC (Bld) [#/Vol] [facility] Nucleated RBC/100 WBC (Bld) [Ratio] 0.0 % /100 WBC [facility] Platelet mean volume (Bld) [Entitic vol] 9.4 fL 9.0 - 12.7 fL [facility] Platelets (Bld) [#/Vol] 288 10*3/uL [facility] RBC (Bld) [#/Vol] 3.66 10*6/uL Low 4.20 - 6.0 0 m/uL [facility] WBC (Bld) [#/Vol] 5.22 10*3/uL [facility] Basophils (Bld) [#/Vol] 10*3/uL Normal <0.11 [facility] Comment on above: Order Comment: Speci men Type: BLOOD SPECIMENOrdering Facility: [facility] Address: [address] [place] [address] Performed By: #### 5 7021-8 ####[facility] LABCLIA [id number] [place] [address] Basophils/100 WBC (Bld) 0.4 % Normal [facility] Comment on above: Order Comment: Speci men Type: BLOOD SPECIMENOrdering Facility: [facility] Address: [address] [place] [address] Performed By: #### 5 7021-8 ####[facility] LABCLIA [id number] [place] [address] Differential cell count method Nom (Bld) Auto Normal [facility] Comment on above: Order Comment: Speci men Type: BLOOD SPECIMENOrdering Facility: [facility] Address: [address] [place] [address] Performed By: #### 5 7021-8 ####[facility] LABCLIA [id number] [place] [address] Eosinophils (Bld) [#/Vol] 0.05 10*3/uL Normal <0.46 [facility] Comment on above: Order Comment: Speci men Type: BLOOD SPECIMENOrdering Facility: [facility] Address: [address] [place] [address] Performed By: #### 5 7021-8 ####[facility] LABCLIA [id number] [place] [address] Eosinophils/100 WBC (Bld) 1.0 % Normal [facility] Comment on above: Order Comment: Speci men Type: BLOOD SPECIMENOrdering Facility: [facility] Address: [address] [place] [address] Performed By: #### 5 7021-8 ####[facility] LABCLIA [id number] [place] [address] Erythrocyte distribution width (RBC) [Ratio] 15.8 % High 11.5-15.0 [facility] Comment on above: Order Comment: Speci men Type: BLOOD SPECIMENOrdering Facility: [facility] Address: [address] [place] [address] Performed By: #### 5 7021-8 ####[facility] LABIA [id number] [place] [address] Hematocrit (Bld) [Volume fraction] 33.7 % Low 39.0-51.0 [facility] Comment on above: Order Comment: Speci men Type: BLOOD SPECIMENOrdering Facility: [facility] Address: [address] [place] [address] Performed By: #### 5 7021-8 ####[facility] LABIA [id number] [place] [address] Hemoglobin (Bld) [Mass/Vol] 11.1 g/dL Low 13.0-17.0 [facility] Comment on above: Order Comment: Speci men Type: BLOOD SPECIMENOrdering Facility: [facility] Address: [address] [place] [address] Performed By: #### 5 7021-8 ####[facility] LABIA [id number] [place] [address] Immature granulocytes (Bld) [#/Vol] 0.03 10*3/uL Normal <0.10 [facility] Comment on above: Order Comment: Speci men Type: BLOOD SPECIMENOrdering Facility: [facility] Address: [address] [place] [address] Performed By: #### 5 7021-8 ####[facility] LABCLIA [id number] [place] [address] Immature granulocytes/100 WBC (Bld) 0.6 % Normal [facility] Comment on above: Order Comment: Speci men Type: BLOOD SPECIMENOrdering Facility: [facility] Address: [address] [place] [address] Performed By: #### 5 7021-8 ####[facility] LABCLIA [id number] [place] [address] Lymphocytes (Bld) [#/Vol] 1.69 10*3/uL Normal 1.00-4.00 [facility] Comment on above: Order Comment: Speci men Type: BLOOD SPECIMENOrdering Facility: [facility] Address: [address] [place] [address] Performed By: #### 5 7021-8 ####[facility] LABCLIA [id number] [place] [address] Lymphocytes/100 WBC (Bld) 32.4 % Normal [facility] Comment on above: Order Comment: Speci men Type: BLOOD SPECIMENOrdering Facility: [facility] Address: [address] [place] [address] Performed By: #### 5 7021-8 ####[facility] LABCLIA [id number] [place] [address] MCH (RBC) [Entitic mass] 30.3 pg Normal 26.0-34.0 [facility] Comment on above: Order Comment: Speci men Type: BLOOD SPECIMENOrdering Facility: [facility] Address: [address] [place] [address] Performed By: #### 5 7021-8 ####[facility] LABCLIA [id number] [place] [address] MCHC (RBC) [Mass/Vol] 32.9 g/dL Normal 30.5-36.0 [facility] Comment on above: Order Comment: Speci men Type: BLOOD SPECIMENOrdering Facility: [facility] Address: [address] [place] [address] Performed By: #### 5 7021-8 ####[facility] LABCLIA [id number] [place] [address] MCV (RBC) [Entitic vol] 92.1 fL Normal 80.0-100.0 [facility] Comment on above: Order Comment: Speci men Type: BLOOD SPECIMENOrdering Facility: [facility] Address: [address] [place] [address] Performed By: #### 5 7021-8 ####[facility] LABCLIA [id number] [place] [address] Monocytes (Bld) [#/Vol] 0.79 10*3/uL Normal <0.87 [facility] Comment on above: Order Comment: Speci men Type: BLOOD SPECIMENOrdering Facility: [facility] Address: [address] [place] [address] Performed By: #### 5 7021-8 ####[facility] LABCLIA [id number] [place] [address] Monocytes/100 WBC (Bld) 15.1 % Normal [facility] Comment on above: Order Comment: Speci men Type: BLOOD SPECIMENOrdering Facility: [facility] Address: [address] [place] [address] Performed By: #### 5 7021-8 ####[facility] LABCLIA [id number] [place] [address] Neutrophils (Bld) [#/Vol] 2.64 10*3/uL Normal 1.45-7.50 [facility] Comment on above: Order Comment: Speci men Type: BLOOD SPECIMENOrdering Facility: [facility] Address: [address] [place] [address] Performed By: #### 5 7021-8 ####[facility] LABCLIA [id number] [place] [address] Neutrophils/100 WBC (Bld) 50.5 % Normal [facility] Comment on above: Order Comment: Speci men Type: BLOOD SPECIMENOrdering Facility: [facility] Address: [address] [place] [address] Performed By: #### 5 7021-8 ####[facility] LABCLIA [id number] [place] [address] Nucleated RBC (Bld) [#/Vol] 10*3/uL Normal <0.01 [facility] Comment on above: Order Comment: Speci men Type: BLOOD SPECIMENOrdering Facility: [facility] Address: [address] [place] [address] Performed By: #### 5 7021-8 ####[facility] LABIA [id number] [place] [address] Nucleated RBC/100 WBC (Bld) [Ratio] 0.0 /100 WBC Normal [facility] System Comment on above: Order Comment: Speci men Type: BLOOD SPECIMENOrdering Facility: [facility] Address: [address] [place] [address] Performed By: #### 5 7021-8 ####[facility] LABIA [id number] [place] [address] Platelet mean volume (Bld) [Entitic vol] 9.4 fL Normal 9.0-12.7 [facility] Comment on above: Order Comment: Speci men Type: BLOOD SPECIMENOrdering Facility: [facility] Address: [address] [place] [address] Performed By: #### 5 7021-8 ####[facility] LABIA [id number] [place] [address] Platelets (Bld) [#/Vol] 288 10*3/uL Normal 150-400 [facility] Comment on above: Order Comment: Speci men Type: BLOOD SPECIMENOrdering Facility: [facility] Address: [address] [place] [address] Performed By: #### 5 7021-8 ####[facility] LABIA [id number] [place] [address] RBC (Bld) [#/Vol] 3.66 10*6/uL Low 4.20-6.00 [facility] Comment on above: Order Comment: Speci men Type: BLOOD SPECIMENOrdering Facility: [facility] Address: [address] [place] [address] Performed By: #### 5 7021-8 ####[facility] LABCLIA [id number] [place] [address] WBC (Bld) [#/Vol] 5.22 10*3/uL Normal 3.70-11.00 [facility] Comment on above: Order Comment: Speci men Type: BLOOD SPECIMENOrdering Facility: [facility] Address: [address] [place] [address] Performed By: #### 5 7021-8 ####[facility] LABCLIA [id number] [place] [address] CNOVSPon 01-03-2024 CNOVSP Normal [facility] Cancer Ag19-9 SerPl-aCncon 0 01-03-2024 Cancer Ag 19-9 Qn 290.0 [arb'U]/mL High <36.0 [facility] Comment on above: Order Comment: Speci men Type: BLOOD SPECIMENOrdering Facility: [facility] Address: [address] [place] [address] Result Comment: [facility] er antigen 19-9 test is used as an aid in monitoring response to treatment or recurrence in patients with established pancreatic, hepatobiliary, or gastrointestinal malignancies. Clinical correlation is required.The CA 19-9 Antigen test was performed using the [employer] DXI paramagnetic particle chemiluminescent immunoassay method. Results obtained with different assay methods or kits cannot be used interchangeably. Performed By: #### 2 4108-3 ####[facility] LABCLIA [id number] [place] [address] [place] Comprehensive metabolic 2000 panelOrdered By: Elizabeth Yu on 01-03-2024 Albumin [Mass/Vol] 3.9 g/dL 3.9 - 4.9 g/dL [facility] ALP [Catalytic activity/Vol] 175 U/L High 38 - 113 U/L [facility] ALT [Catalytic activity/Vol] 14 U/L 10 - 54 U/L [facility] Anion gap [Moles/Vol] 6 mmol/L Low 8 - 15 mmol/L [facility] AST [Catalytic activity/Vol] 13 U/L Low 14 - 40 U/L [facility] Bilirubin [Mass/Vol] 0.5 mg/dL 0.2 - 1 .3 mg/dL [facility] Calcium [Mass/Vol] 10.3 mg/dL High 8.5 - 10. 2 mg/dL [facility] Chloride [Moles/Vol] 103 mmol/L 98 - 10 7 mmol/L [facility] CO2 [Moles/Vol] 26 mmol/L 22 - 30 mmol/L [facility] Creatinine [Mass/Vol] 0.85 mg/dL 0.73 - 1.22 mg/dL [facility] GFR/1.73 sq M.predicted among non-blacks MDRD (S/P/Bld) [Vol rate/Area] 92 mL/min/{1.73_m2} - PINF [facility] Comment on above: Estimated Glomerular Filtration [...] 169 mg/dL High 74 - 99 mg/dL [facility] Comment on above: The [place] Diabete s Association (ADA) provides guidance for [...] Standards of Medical Care in Diabetes 2016, [place] Diabetes Association. Diabetes Care. 2016.39(Suppl 1). Interpretation and review of laboratory results Abnormal [facility] Potassium [Moles/Vol] 4.4 mmol/L 3.7 - 5.1 mmol/L [facility] Protein [Mass/Vol] 6.8 g/dL 6.3 - 8.0 g/dL [facility] Sodium [Moles/Vol] 135 mmol/L Low 136 - 144 mmol/L [facility] Urea nitrogen [Mass/Vol] 16 mg/dL 9 - 24 mg/dL [facility] Comprehensive metabolic 2000 panelon 01-03-2024 Albumin [Mass/Vol] 3.9 g/dL Normal 3.9-4.9 [facility] Comment on above: Order Comment: Speci men Type: BLOOD SPECIMENOrdering Facility: [facility] Address: [address] [place] [address] Performed By: #### 2 4323-8 ####[facility] LABCLIA [id number] [place] [address] ALP [Catalytic activity/Vol] 175 U/L High 38-113 [facility] Comment on above: Order Comment: Speci men Type: BLOOD SPECIMENOrdering Facility: [facility] Address: [address] [place] [address] Performed By: #### 2 4323-8 ####[facility] LABCLIA [id number] [place] [address] ALT [Catalytic activity/Vol] 14 U/L Normal 10-54 [facility] Comment on above: Order Comment: Speci men Type: BLOOD SPECIMENOrdering Facility: [facility] Address: [address] [place] [address] Performed By: #### 2 4323-8 ####[facility] LABCLIA [id number] [place] [address] Anion gap [Moles/Vol] 6 mmol/L Low 8-15 [facility] Comment on above: Order Comment: Speci men Type: BLOOD SPECIMENOrdering Facility: [facility] Address: [address] [place] [address] Performed By: #### 2 4323-8 ####[facility] LABCLIA [id number] [place] [address] AST [Catalytic activity/Vol] 13 U/L Low 14-40 [facility] Comment on above: Order Comment: Speci men Type: BLOOD SPECIMENOrdering Facility: [facility] Address: [address] [place] [address] Performed By: #### 2 4323-8 ####[facility] LABCLIA [id number] [place] [address] Bilirubin [Mass/Vol] 0.5 mg/dL Normal 0.2-1.3 [facility] Comment on above: Order Comment: Speci men Type: BLOOD SPECIMENOrdering Facility: [facility] Address: [address] [place] [address] Performed By: #### 2 4323-8 ####[facility] LABCLIA [id number] [place] [address] Calcium [Mass/Vol] 10.3 mg/dL High 8.5-10.2 [facility] Comment on above: Order Comment: Speci men Type: BLOOD SPECIMENOrdering Facility: [facility] Address: [address] [place] [address] Performed By: #### 2 4323-8 ####[facility] LABCLIA [id number] [place] [address] Chloride [Moles/Vol] 103 mmol/L Normal 98-107 [facility] Comment on above: Order Comment: Speci men Type: BLOOD SPECIMENOrdering Facility: [facility] Address: [address] [place] [address] Performed By: #### 2 4323-8 ####[facility] LABCLIA [id number] [place] [address] CO2 [Moles/Vol] 26 mmol/L Normal 22-30 [facility] Comment on above: Order Comment: Speci men Type: BLOOD SPECIMENOrdering Facility: [facility] Address: [address] [place] [address] Performed By: #### 2 4323-8 ####[facility] LABCLIA [id number] [place] [address] Creatinine [Mass/Vol] 0.85 mg/dL Normal 0.73-1.22 [facility] Comment on above: Order Comment: Noemí luis eduardo Type: BLOOD SPECIMENOrdering Facility: [facility] Address: [address] [id number] Performed By: #### 2 4323-8 ####[facility] LABCLIA [id number] [place] [address] Creatinine and Glomerular filtration rate.predicted panel (S/P/Bld) 92 mL/min/1.73m??? Normal >=60 [facility] Comment on above: Order Comment: Specmack luis eduardo Type: BLOOD SPECIMENOrdering Facility: [facility] Address: [address] [place] [address] Result Comment: Kathy mated Glomerular Filtration Rate [...] actual GFR. Performed By: #### 2 4323-8 ####[facility] LABCLIA [id number] [place] [address] Glucose [Mass/Vol] 169 mg/dL High 74-99 [facility] Comment on above: Order Comment: Noemí luis eduardo Type: BLOOD SPECIMENOrdering Facility: [facility] Address: [address] [place] [place] [id number] Result Comment: The [place] Diabetes Association (ADA) provides guidance for cutoff [...] Standards of Medical Care in Diabetes 2016, [place] Diabetes Association. Diabetes Care. 2016.39(Suppl 1). Performed By: #### 2 4323-8 ####[facility] LABCLIA [id number] [place] [address] Potassium [Moles/Vol] 4.4 mmol/L Normal 3.7-5.1 [facility] Comment on above: Order Comment: Speci men Type: BLOOD SPECIMENOrdering Facility: [facility] Address: [address] [place] [address] Performed By: #### 2 4323-8 ####[facility] LABCLIA [id number] [place] [address] Protein [Mass/Vol] 6.8 g/dL Normal 6.3-8.0 [facility] Comment on above: Order Comment: Speci men Type: BLOOD SPECIMENOrdering Facility: [facility] Address: [address] [place] [address] Performed By: #### 2 4323-8 ####[facility] LABCLIA [id number] [place] [address] Sodium [Moles/Vol] 135 mmol/L Low 136-144 [facility] Comment on above: Order Comment: Speci men Type: BLOOD SPECIMENOrdering Facility: [facility] Address: [address] [place] [address] Performed By: #### 2 4323-8 ####[facility] LABCLIA [id number] [place] [address] Urea nitrogen [Mass/Vol] 16 mg/dL Normal 9-24 [facility] Comment on above: Order Comment: Speci men Type: BLOOD SPECIMENOrdering Facility: [facility] Address: [address] [place] [address] Performed By: #### 2 4323-8 ####[facility] LABCLIA [id number] [place] [address] CNPNon 01-02-2024 CNPN Normal [facility] [id number] 12-29-2023 [id number] HNO ID: [id number] Author: AYAH HOWE RN Service: ? Author Type: Registered Nurse Type: [id number] Filed: 12/29/2023 12:32 Note Text: After Placement [...] follow up with your ordering physician for intermediate, regular maintenance of your port. [facility] Imaging and Radiology Service [facility] 7:30 AM to 4:30 PM [phone] After hours/weekends: call your primary care physician or go to the ED [facility] 7:30 AM to 4:00 PM [phone]: or [phone] After hours/weekends: For interventional radiology: call the interventional radiologist masonry contractor , ask for pager [phone] For all other radiology calls: call the radiologist masonry contractor , ask for pager [phone] [facility] 8:00 AM to 5:00 PM [phone] After hours/weekends: call your primary care physician or go to the ED [facility] 9:00 AM to 5:00 PM [phone] After hours/weekends: call your primary care physician or go to the ED 8:00 AM to 5:00 PM [phone] After hours/weekends: call your primary care physician or go to the ED [facility] 7:00 AM to 4:30 PM [phone] After hours/weekends: call your primary care physician or go to the ED [facility] 7:00 AM to 3:30 PM [phone] After hours/weekends: call your prim (more content not included)... [facility] BRIEF OP NOTon 12-29-2023 BRIEF OP NOT HNO ID: [id number] Author: JHONNY MORGAN MD Service: Radiology Author Type: Physician Type: Brief Op Note Filed: 12/29/2023 12:08 Note Text: OPERATIVE/PROCEDURE REPORT LOG ID: [id number] SURGERY/PROCEDURE DATE: 12/29/2023 INCISION/PROCEDURE START TIME: 10:59 AM INCISION CLOSE/PROCEDURE END TIME: 11:48 AM SURGEON(S)/PROCEDURALIST( S) AND BARREL RIBS SOLDERER(S): Surgeon(s) and Role: * Jhonny Morgan MD [...] Implant Name Type Inv. Item Serial No. Erp Specialist Lot No. LRB No. Used Action POWER PORT 8F SINGLE LUMEN VENOUS Port [employer] [id number] Left 1 Implanted DRAINS: None COMPLICATIONS: None CLOSURE TECHNIQUE: Primary PARTICIPATION IN SURGERY/PROCEDURE: I/primary surgeon/proceduralist performed the procedure with assistance. SIGNATURE: Karyuki Morgan MD PATIENT NAME: Trinity Perry DATE: December 29, 2023 TIME: 12:06 PM Normal [facility] HISTORY PHYSICALon HISTORY PHYSICAL HNO ID: [id number] Author: JHONNY MORGAN MD Service: Radiology Author [...] December 29, 2023 TIME: 10:14 AM Normal [facility] IR CVC TUNNELED W/PORT REMOV Emily 12-29-2023 IR CVC TUNNELED W/PORT REMOVAL * * *Final Report* * * DATE OF EXAM: Dec 29 2023 12:03PM [facility] 7473 - IR CVC TUNNELED W/PORT [...] was made at (more content not included)... [facility] IR FLU GD [place] CVA PLACEon IR FLU GD [place] CVA PLACE * * *Final Report* * * DATE OF EXAM: Dec 29 2023 12:03PM [facility] 7444 - IR FLU GD H[place]TON [...] at the si (more content not included)... [facility] IR PORTOCATH PLACEMENTon IR PORTOCATH PLACEMENT * * *Final Report* * * DATE OF EXAM: Dec 29 2023 12:03PM [facility] 8966 - IR PORTOCATH PLACEMENT / [...] at the sit (more content not included)... [facility] IR US VASCULAR ACCESS GUIDEo n 12-29-2023 IR US VASCULAR ACCESS GUIDE * * *Final Report* * * DATE OF EXAM: Dec 29 2023 12:03PM [facility] 7765 - [facility] VASCULAR ACCESS GUIDE / PROCEDURE REASON: [...] made at th (more content not included)... [facility] NURSING PROGon 12-29-2023 NURSING PROG HNO ID: [id number] Author: SUNNY PAULA, RN Service: Nursing Author [...] (RECOMMENDATION): None Electronically Signed By: Sunny Paula [facility] SURGICAL PATHOLOGYon 024 CASE REPORT Normal [facility] Comment on above: Order Comment: Speci men Type: TISSUE SPECIMEN [facility] Address: [address] [place] [address] Result Comment: Surg ical Pathology Report Case: [id number] Authorizing Provider: Cathy, Collected: 12/29/2023 11:43 AM MD Jhonny Ordering Location: [facility] Radiology Received: 12/29/2023 12:40 PM Procedure Pathologist: Sha Reyes MD Specimen: Hardware/Device/Foreign Body Performed By: #### S #### [facility] CLIA [id number] [address] [place] [address] [place] CLINICAL HISTORY Potentially leaking catheter in a venous ported catheter Normal [facility] Comment on above: Order Comment: Speci men Type: TISSUE SPECIMEN [facility] Address: [address] [place] [address] Performed By: #### S #### [facility] CLIA [id number] [address] [place] [address] [place] FINAL DIAGNOSIS [facility] Comment on above: Order Comment: Speci men Type: TISSUE SPECIMEN [facility] Address: [address] [place] [address] Result Comment: A. U nspecified site, device removal: -Mediport with attached catheter (gross examination only). KOURTNEY/RSA 01/01/2024 Performed By: #### S #### [facility] CLIA [id number] [address] [place] [address] [place] FINAL PERFORMING LAB Normal [facility] Comment on above: Order Comment: Speci men Type: TISSUE SPECIMEN [facility] Facility: [facility] Address: [address] [place] [address] Result Comment: Diag nostic interpretation performed at [facility], [address] [place] [address] CLIA# [id number] Stretch Machine Operator: Gilbert Gray M.D. Performed By: #### S #### [facility] CLIA [id number] [address] [place] [address] [place] GROSS DESCRIPTION Normal [facility] Comment on above: Order Comment: Speci men Type: TISSUE SPECIMEN [facility]: [facility] Address: [address] [place] [address] Result Comment: A. H ardware/Device/Foreign Body Received fresh labeled hardware/device/foreign body is a Mediport (2.8 x 2.4 x 1.6 cm) with attached catheter (23 cm in length by 0.3 cm in diameter). The following inscription is noted CT Bard 2303 . No tissue is present or submitted. This case is reviewed with Dr. Ballesteros. Gross examination only. Gross examination performed at [facility], [address] [place] [address] CLIA#[id number] [facility] January 01, 2024 11:39 AM Performed By: #### S #### [facility] CLIA [id number] [address] [place] [address] [place] CNPNon 12-27-2023 CNPN Telephone (AVXRPR) ----- TRINITY PERRY ([id number]) 1950 M Date Time Provider Department 12/27/23 ADINA SCHMITZ AVXROR During your visit today, we recorded the following information about you: Adina Schmitz RN 12/27/2023 12:17 PM Signed You are scheduled for a Port Removal, On 12/29/2023. You are to arrive at 09:00 am and Report to [facility]: [facility]: Radiology Outpatient Desk [id number] You can expect to be here for [...] Labs: Lab-work needs to be drawn? No.. Executive Staff Assistant/Transportation: How will you be arriving for your procedure? Private car. You will need a responsible adult to accompany you to and from the procedure. 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 [Z79.01] 04/07/2020 Deep [...] Encounter Status:Closed by DONNELL SWENSON on 12/25/23 [facility] CBC W Auto Differential pane l (Bld)on 12-11-2023 Basophils (Bld) [#/Vol] [facility] Basophils/100 WBC (Bld) 0.4 % [facility] Differential cell count method Nom (Bld) Auto [facility] Eosinophils (Bld) [#/Vol] 0.04 10*3/uL [facility] Eosinophils/100 WBC (Bld) 0.8 % [facility] Erythrocyte distribution width (RBC) [Ratio] 16.3 % High 11.5 - 15.0 % [facility] Hematocrit (Bld) [Volume fraction] 34.5 % Low 39.0 - 51.0 % [facility] Hemoglobin (Bld) [Mass/Vol] 11.0 g/dL Low 13.0 - 17.0 g/dL [facility] Immature granulocytes (Bld) [#/Vol] [facility] Immature granulocytes/100 WBC (Bld) 0.4 % [facility] Interpretation and review of laboratory results Abnormal [facility] Lymphocytes (Bld) [#/Vol] 1.76 10*3/uL [facility] Lymphocytes/100 WBC (Bld) 35.3 % [facility] MCH (RBC) [Entitic mass] 30.0 pg 26.0 - 34.0 pg [facility] MCHC (RBC) [Mass/Vol] 31.9 g/dL 30.5 - 36.0 g/dL [facility] MCV (RBC) [Entitic vol] 94.0 fL 80.0 - 100.0 fL [facility] Monocytes (Bld) [#/Vol] 0.70 10*3/uL [facility] Monocytes/100 WBC (Bld) 14.1 % [facility] Neutrophils (Bld) [#/Vol] 2.44 10*3/uL [facility] Neutrophils/100 WBC (Bld) 49.0 % [facility] Nucleated RBC (Bld) [#/Vol] [facility] Nucleated RBC/100 WBC (Bld) [Ratio] 0.0 % /100 WBC [facility] Platelet mean volume (Bld) [Entitic vol] 9.5 fL 9.0 - 12.7 fL [facility] Platelets (Bld) [#/Vol] 266 10*3/uL [facility] RBC (Bld) [#/Vol] 3.67 10*6/uL Low 4.20 - 6.0 0 m/uL [facility] WBC (Bld) [#/Vol] 4.98 10*3/uL [facility] Basophils (Bld) [#/Vol] 10*3/uL Normal <0.11 [facility] Comment on above: Order Comment: Speci men Type: BLOOD SPECIMENOrdering Facility: [facility] Address: [address] [place] [address] Performed By: #### 5 7021-8 ####[facility] LABCLIA [id number] [place] [address] Basophils/100 WBC (Bld) 0.4 % Normal [facility] Comment on above: Order Comment: Speci men Type: BLOOD SPECIMENOrdering Facility: [facility] Address: [address] [place] [address] Performed By: #### 5 7021-8 ####[facility] LABCLIA [id number] [place] [address] Differential cell count method Nom (Bld) Auto Normal [facility] Comment on above: Order Comment: Speci men Type: BLOOD SPECIMENOrdering Facility: [facility] Address: [address] [place] [address] Performed By: #### 5 7021-8 ####[facility] LABCLIA [id number] [place] [address] Eosinophils (Bld) [#/Vol] 0.04 10*3/uL Normal <0.46 [facility] Comment on above: Order Comment: Speci men Type: BLOOD SPECIMENOrdering Facility: [facility] Address: [address] [place] [address] Performed By: #### 5 7021-8 ####[facility] LABCLIA [id number] [place] [address] Eosinophils/100 WBC (Bld) 0.8 % Normal [facility] Comment on above: Order Comment: Speci men Type: BLOOD SPECIMENOrdering Facility: [facility] Address: [address] [place] [address] Performed By: #### 5 7021-8 ####[facility] LABCLIA [id number] [place] [address] Erythrocyte distribution width (RBC) [Ratio] 16.3 % High 11.5-15.0 [facility] Comment on above: Order Comment: Speci men Type: BLOOD SPECIMENOrdering Facility: [facility] Address: [address] [place] [address] Performed By: #### 5 7021-8 ####[facility] LABCLIA [id number] [place] [address] Hematocrit (Bld) [Volume fraction] 34.5 % Low 39.0-51.0 [facility] Comment on above: Order Comment: Speci men Type: BLOOD SPECIMENOrdering Facility: [facility] Address: [address] [place] [address] Performed By: #### 5 7021-8 ####[facility] LABCLIA [id number] [place] [address] Hemoglobin (Bld) [Mass/Vol] 11.0 g/dL Low 13.0-17.0 [facility] Comment on above: Order Comment: Speci men Type: BLOOD SPECIMENOrdering Facility: [facility] Address: [address] [place] [address] Performed By: #### 5 7021-8 ####[facility] LABCLIA [id number] [place] [address] Immature granulocytes (Bld) [#/Vol] 10*3/uL Normal <0.10 [facility] Comment on above: Order Comment: Speci men Type: BLOOD SPECIMENOrdering Facility: [facility] Address: [address] [place] [address] Performed By: #### 5 7021-8 ####[facility] LABCLIA [id number] [place] [address] Immature granulocytes/100 WBC (Bld) 0.4 % Normal [facility] Comment on above: Order Comment: Speci men Type: BLOOD SPECIMENOrdering Facility: [facility] [facility] Address: [address] [place] [address] Performed By: #### 5 7021-8 ####[facility] LABCLIA [id number] [place] [address] Lymphocytes (Bld) [#/Vol] 1.76 10*3/uL Normal 1.00-4.00 [facility] Comment on above: Order Comment: Speci men Type: BLOOD SPECIMENOrdering Facility: [facility] Address: [address] [place] [address] Performed By: #### 5 7021-8 ####[facility] LABCLIA [id number] [place] [address] Lymphocytes/100 WBC (Bld) 35.3 % Normal [facility] Comment on above: Order Comment: Speci men Type: BLOOD SPECIMENOrdering Facility: [facility] Address: [address] [place] [address] Performed By: #### 5 7021-8 ####[facility] LABCLIA [id number] [place] [address] MCH (RBC) [Entitic mass] 30.0 pg Normal 26.0-34.0 [facility] Comment on above: Order Comment: Speci men Type: BLOOD SPECIMENOrdering Facility: [facility] Address: [address] [place] [address] Performed By: #### 5 7021-8 ####[facility] LABCLIA [id number] [place] [address] MCHC (RBC) [Mass/Vol] 31.9 g/dL Normal 30.5-36.0 [facility] Comment on above: Order Comment: Speci men Type: BLOOD SPECIMENOrdering Facility: [facility] Address: [address] [place] [address] Performed By: #### 5 7021-8 ####[facility] LABCLIA [id number] [place] [address] MCV (RBC) [Entitic vol] 94.0 fL Normal 80.0-100.0 [facility] Comment on above: Order Comment: Speci men Type: BLOOD SPECIMENOrdering Facility: [facility] Address: [address] [place] [address] Performed By: #### 5 7021-8 ####[facility] LABIA [id number] [place] [address] Monocytes (Bld) [#/Vol] 0.70 10*3/uL Normal <0.87 [facility] Comment on above: Order Comment: Speci men Type: BLOOD SPECIMENOrdering Facility: [facility] Address: [address] [place] [address] Performed By: #### 5 7021-8 ####[facility] LABCLIA [id number] [place] [address] Monocytes/100 WBC (Bld) 14.1 % Normal [facility] Comment on above: Order Comment: Speci men Type: BLOOD SPECIMENOrdering Facility: [facility] Address: [address] [place] [address] Performed By: #### 5 7021-8 ####[facility] LABCLIA [id number] [place] [address] Neutrophils (Bld) [#/Vol] 2.44 10*3/uL Normal 1.45-7.50 [facility] Comment on above: Order Comment: Speci men Type: BLOOD SPECIMENOrdering Facility: [facility] Address: [address] [place] [address] Performed By: #### 5 7021-8 ####[facility] LABCLIA [id number] [place] [address] Neutrophils/100 WBC (Bld) 49.0 % Normal [facility] Comment on above: Order Comment: Speci men Type: BLOOD SPECIMENOrdering Facility: [facility] Address: [address] [place] [address] Performed By: #### 5 7021-8 ####[facility] LABCLIA [id number] [place] [address] Nucleated RBC (Bld) [#/Vol] 10*3/uL Normal <0.01 [facility] Comment on above: Order Comment: Speci men Type: BLOOD SPECIMENOrdering Facility: [facility] Address: [address] [place] [address] Performed By: #### 5 7021-8 ####[facility] LABCLIA [id number] [place] [address] Nucleated RBC/100 WBC (Bld) [Ratio] 0.0 /100 WBC Normal [facility] Comment on above: Order Comment: Speci men Type: BLOOD SPECIMENOrdering Facility: [facility] Address: [address] [place] [address] Performed By: #### 5 7021-8 ####[facility] LABCLIA [id number] [place] [address] Platelet mean volume (Bld) [Entitic vol] 9.5 fL Normal 9.0-12.7 [facility] Comment on above: Order Comment: Speci men Type: BLOOD SPECIMENOrdering Facility: [facility] Address: [address] [place] [address] Performed By: #### 5 7021-8 ####[facility] LABCLIA [id number] [place] [address] Platelets (Bld) [#/Vol] 266 10*3/uL Normal 150-400 [facility] Comment on above: Order Comment: Speci men Type: BLOOD SPECIMENOrdering Facility: [facility] Address: [address] [place] [address] Performed By: #### 5 7021-8 ####[facility] LABCLIA [id number] [place] [address] RBC (Bld) [#/Vol] 3.67 10*6/uL Low 4.20-6.00 [facility] Comment on above: Order Comment: Speci men Type: BLOOD SPECIMENOrdering Facility: [facility] Address: [address] [place] [address] Performed By: #### 5 7021-8 ####[facility] LABCLIA [id number] [place] [address] WBC (Bld) [#/Vol] 4.98 10*3/uL Normal 3.70-11.00 [facility] Comment on above: Order Comment: Speci men Type: BLOOD SPECIMENOrdering Facility: [facility] Address: [address] [place] [address] Performed By: #### 5 7021-8 ####[facility] LABCLIA [id number] [place] [address] CNOVSPon 12-11-2023 CNOVSP Normal [facility] metabolic 2000 panelOrdered By: Je Elias on 12-11-2023 Albumin [Mass/Vol] 3.9 g/dL 3.9 - 4.9 g/dL [facility] ALP [Catalytic activity/Vol] 158 U/L High 38 - 113 U/L [facility] ALT [Catalytic activity/Vol] 16 U/L 10 - 54 U/L [facility] Anion gap [Moles/Vol] 8 mmol/L 8 - 15 mmol/L [facility] AST [Catalytic activity/Vol] 14 U/L 14 - 40 U/L [facility] Bilirubin [Mass/Vol] 0.5 mg/dL 0.2 - 1 .3 mg/dL [facility] Calcium [Mass/Vol] 10.4 mg/dL High 8.5 - 10. 2 mg/dL [facility] Chloride [Moles/Vol] 104 mmol/L 98 - 10 7 mmol/L [facility] CO2 [Moles/Vol] 25 mmol/L 22 - 30 mmol/L [facility] Creatinine [Mass/Vol] 0.95 mg/dL 0.73 - 1.22 mg/dL [facility] GFR/1.73 sq M.predicted among non-blacks MDRD (S/P/Bld) [Vol rate/Area] 85 mL/min/{1.73_m2} - PINF [facility] Comment on above: Estimated Glomerular Filtration [...] High 74 - 99 mg/dL [facility] Comment on above: The [place] Diab[employer] Association (ADA) provides guidance for [...] Standards of Medical Care in Diabetes 2016, [place] [employer]. Diabetes Care. 2016.39(Suppl 1). Interpretation and review of laboratory results Abnormal [facility] Potassium [Moles/Vol] 4.5 mmol/L 3.7 - 5.1 mmol/L [facility] Protein [Mass/Vol] 6.9 g/dL 6.3 - 8.0 g/dL [facility] Sodium [Moles/Vol] 137 mmol/L 136 - 144 mmol/L [facility] Urea nitrogen [Mass/Vol] 21 mg/dL 9 - 24 mg/dL [facility] Comprehensive metabolic 2000 panelon 12-11-2023 Albumin [Mass/Vol] 3.9 g/dL Normal 3.9-4.9 [facility] Comment on above: Order Comment: Speci men Type: BLOOD SPECIMENOrdering Facility: [facility] Address: [address] [place] [address] Performed By: #### 2 4323-8 ####[facility] LABCLIA [id number] [place] [address] ALP [Catalytic activity/Vol] 158 U/L High 38-113 [facility] Comment on above: Order Comment: Speci men Type: BLOOD SPECIMENOrdering Facility: [facility] Address: [address] [place] [address] Performed By: #### 2 4323-8 ####[facility] LABCLIA [id number] [place] [address] ALT [Catalytic activity/Vol] 16 U/L Normal 10-54 [facility] Comment on above: Order Comment: Speci men Type: BLOOD SPECIMENOrdering Facility: [facility] Address: [address] [id number] Performed By: #### 2 4323-8 ####[facility] LABCLIA [id number] [place] [address] Anion gap [Moles/Vol] 8 mmol/L Normal 8-15 [facility] Comment on above: Order Comment: Speci men Type: BLOOD SPECIMENOrdering Facility: [facility] Address: [address] [place] [address] Performed By: #### 2 4323-8 ####[facility] LABCLIA [id number] [place] [address] AST [Catalytic activity/Vol] 14 U/L Normal 14-40 [facility] Comment on above: Order Comment: Speci men Type: BLOOD SPECIMENOrdering Facility: [facility] Address: [address] [place] [address] Performed By: #### 2 4323-8 ####[facility] LABCLIA [id number] [place] [address] Bilirubin [Mass/Vol] 0.5 mg/dL Normal 0.2-1.3 [facility] Comment on above: Order Comment: Speci men Type: BLOOD SPECIMENOrdering Facility: [facility] Address: [address] [place] [address] Performed By: #### 2 4323-8 ####[facility] LABCLIA [id number] [place] [address] Calcium [Mass/Vol] 10.4 mg/dL High 8.5-10.2 [facility] Comment on above: Order Comment: Speci men Type: BLOOD SPECIMENOrdering Facility: [facility] Address: [address] [place], [place] [address] Performed By: #### 2 4323-8 ####[facility] LABCLIA [id number] [place] [address] Chloride [Moles/Vol] 104 mmol/L Normal 98-107 [facility] Comment on above: Order Comment: Speci men Type: BLOOD SPECIMENOrdering Facility: [facility] Address: [address] [place] [address] Performed By: #### 2 4323-8 ####[facility] LABCLIA [id number] [place] [address] CO2 [Moles/Vol] 25 mmol/L Normal 22-30 [facility] Comment on above: Order Comment: Speci men Type: BLOOD SPECIMENOrdering Facility: [facility] Address: [address] [place] [address] Performed By: #### 2 4323-8 ####[facility] LABCLIA [id number] [place] [address] Creatinine [Mass/Vol] 0.95 mg/dL Normal 0.73-1.22 [facility] Comment on above: Order Comment: Speci men Type: BLOOD SPECIMENOrdering Facility: [facility] Address: [address] [place] [address] Performed By: #### 2 4323-8 ####[facility] LABCLIA [id number] [place] [address] Creatinine and Glomerular filtration rate.predicted panel (S/P/Bld) 85 mL/min/1.73m??? Normal >=60 [facility] Comment on above: Order Comment: Speci men Type: BLOOD SPECIMENOrdering Facility: [facility] Address: [address] [place] [address] Result Comment: Kathy mated Glomerular Filtration Rate [...] actual GFR. Performed By: #### 2 4323-8 ####[facility] LABCLIA [id number] [place] [address] Glucose [Mass/Vol] 127 mg/dL High 74-99 [facility] Comment on above: Order Comment: Speci men Type: BLOOD SPECIMENOrdering Facility: [facility] Address: [address] [place] [address] Result Comment: The [place] Diabetes Association (ADA) provides guidance for cutoff [...] Standards of Medical Care in Diabetes 2016, [place] [employer]. Diabetes Care. 2016.39(Suppl 1). Performed By: #### 2 4323-8 ####[facility] LABCLIA [id number] [place] [address] Potassium [Moles/Vol] 4.5 mmol/L Normal 3.7-5.1 [facility] Comment on above: Order Comment: Speci men Type: BLOOD SPECIMENOrdering Facility: [facility] Address: [address] [place] [address] Performed By: #### 2 4323-8 ####[facility] LABCLIA [id number] [place] [address] Protein [Mass/Vol] 6.9 g/dL Normal 6.3-8.0 [facility] Comment on above: Order Comment: Speci men Type: BLOOD SPECIMENOrdering Facility: [facility] Address: [address] [place] [address] Performed By: #### 2 4323-8 ####[facility] LABCLIA [id number] [place] [address] Sodium [Moles/Vol] 137 mmol/L Normal 136-144 [facility] Comment on above: Order Comment: Speci men Type: BLOOD SPECIMENOrdering Facility: [facility] Address: [address] [place] [address] Performed By: #### 2 4323-8 ####[facility] LABCLIA [id number] [place] [address] Urea nitrogen [Mass/Vol] 21 mg/dL Normal 9-24 [facility] Comment on above: Order Comment: Speci men Type: BLOOD SPECIMENOrdering Facility: [facility] Address: [address] [place] [id number] Performed By: #### 2 4323-8 ####[facility] LABCLIA [id number] [place] [address] CNPNon 12-05-2023 CNPN Normal [facility] CNPNon 11-28-2023 CNPN Normal [facility] CBC W Auto Differential pane l (Bld)on 11-20-2023 Basophils (Bld) [#/Vol] 0.03 10*3/uL [facility] Basophils/100 WBC (Bld) 0.7 % [facility] Differential cell count method Nom (Bld) Auto [facility] Eosinophils (Bld) [#/Vol] 0.07 10*3/uL [facility] Eosinophils/100 WBC (Bld) 1.6 % [facility] Erythrocyte distribution width (RBC) [Ratio] 16.7 % High 11.5 - 15.0 % [facility] Hematocrit (Bld) [Volume fraction] 33.9 % Low 39.0 - 51.0 % [facility] Hemoglobin (Bld) [Mass/Vol] 10.8 g/dL Low 13.0 - 17.0 g/dL [facility] Immature granulocytes (Bld) [#/Vol] NINF [facility] Immature granulocytes/100 WBC (Bld) 0.2 % [facility] Interpretation and review of laboratory results Abnormal [facility] Lymphocytes (Bld) [#/Vol] 1.87 10*3/uL [facility] Lymphocytes/100 WBC (Bld) 43.6 % [facility] MCH (RBC) [Entitic mass] 30.4 pg 26.0 - 34.0 pg [facility] MCHC (RBC) [Mass/Vol] 31.9 g/dL 30.5 - 36.0 g/dL [facility] MCV (RBC) [Entitic vol] 95.5 fL 80.0 - 100.0 fL [facility] Monocytes (Bld) [#/Vol] 0.58 10*3/uL [facility] Monocytes/100 WBC (Bld) 13.5 % [facility] Neutrophils (Bld) [#/Vol] 1.73 10*3/uL [facility] Neutrophils/100 WBC (Bld) 40.4 % [facility] Nucleated RBC (Bld) [#/Vol] NINF [facility] Nucleated RBC/100 WBC (Bld) [Ratio] 0.0 % /100 WBC [facility] Platelet mean volume (Bld) [Entitic vol] 9.4 fL 9.0 - 12.7 fL [facility] Platelets (Bld) [#/Vol] 245 10*3/uL [facility] RBC (Bld) [#/Vol] 3.55 10*6/uL Low 4.20 - 6.0 0 m/uL [facility] WBC (Bld) [#/Vol] 4.29 10*3/uL [facility] Basophils (Bld) [#/Vol] 0.03 10*3/uL Normal <0.11 [facility] Comment on above: Order Comment: Speci men Type: BLOOD SPECIMENOrdering Facility: [facility] Address: [address] [place] [address] Performed By: #### 5 7021-8 ####[facility] LABCLIA [id number] [place] [address] Basophils/100 WBC (Bld) 0.7 % Normal [facility] Comment on above: Order Comment: Speci men Type: BLOOD SPECIMENOrdering Facility: [facility] Address: [address] [place] [address] Performed By: #### 5 7021-8 ####[facility] LABCLIA [id number] [place] [address] Differential cell count method Nom (Bld) Auto Normal [facility] Comment on above: Order Comment: Speci men Type: BLOOD SPECIMENOrdering Facility: [facility] Address: [address] [place] [address] Performed By: #### 5 7021-8 ####[facility] LABCLIA [id number] [place] [address] Eosinophils (Bld) [#/Vol] 0.07 10*3/uL Normal <0.46 [facility] Comment on above: Order Comment: Speci men Type: BLOOD SPECIMENOrdering Facility: [facility] Address: [address] [place] [address] Performed By: #### 5 7021-8 ####[facility] LABCLIA [id number] [place] [address] Eosinophils/100 WBC (Bld) 1.6 % Normal [facility] Comment on above: Order Comment: Speci men Type: BLOOD SPECIMENOrdering Facility: [facility] Address: [address] [place] [address] Performed By: #### 5 7021-8 ####[facility] LABCLIA [id number] [place] [address] Erythrocyte distribution width (RBC) [Ratio] 16.7 % High 11.5-15.0 [facility] Comment on above: Order Comment: Speci men Type: BLOOD SPECIMENOrdering Facility: [facility] Address: [address] [place] [address] Performed By: #### 5 7021-8 ####[facility] LABCLIA [id number] [place] [address] Hematocrit (Bld) [Volume fraction] 33.9 % Low 39.0-51.0 [facility] Comment on above: Order Comment: Speci men Type: BLOOD SPECIMENOrdering Facility: [facility] Address: [address] [place] [address] Performed By: #### 5 7021-8 ####[facility] LABCLIA [id number] [place] [address] Hemoglobin (Bld) [Mass/Vol] 10.8 g/dL Low 13.0-17.0 [facility] Comment on above: Order Comment: Speci men Type: BLOOD SPECIMENOrdering Facility: [facility] Address: [address] [place] [address] Performed By: #### 5 7021-8 ####[facility] LABCLIA [id number] [place] [address] Immature granulocytes (Bld) [#/Vol] 10*3/uL Normal <0.10 [facility] Comment on above: Order Comment: Speci men Type: BLOOD SPECIMENOrdering Facility: [facility] Address: [address] [place] [address] Performed By: #### 5 7021-8 ####[facility] LABCLIA [id number] [place] [address] Immature granulocytes/100 WBC (Bld) 0.2 % Normal [facility] Comment on above: Order Comment: Speci men Type: BLOOD SPECIMENOrdering Facility: [facility] Address: [address] [place] [address] Performed By: #### 5 7021-8 ####[facility] LABCLIA [id number] [place] [address] Lymphocytes (Bld) [#/Vol] 1.87 10*3/uL Normal 1.00-4.00 [facility] Comment on above: Order Comment: Speci men Type: BLOOD SPECIMENOrdering Facility: [facility] Address: [address] [place] [address] Performed By: #### 5 7021-8 ####[facility] LABCLIA [id number] [place] [address] Lymphocytes/100 WBC (Bld) 43.6 % Normal [facility] Comment on above: Order Comment: Speci men Type: BLOOD SPECIMENOrdering Facility: [facility] Address: [address] [place] [address] Performed By: #### 5 7021-8 ####[facility] LABCLIA [id number] [place] [address] MCH (RBC) [Entitic mass] 30.4 pg Normal 26.0-34.0 [facility] Comment on above: Order Comment: Speci men Type: BLOOD SPECIMENOrdering Facility: [facility] Address: [address] [place] [address] Performed By: #### 5 7021-8 ####[facility] LABCLIA [id number] [place] [address] MCHC (RBC) [Mass/Vol] 31.9 g/dL Normal 30.5-36.0 [facility] Comment on above: Order Comment: Speci men Type: BLOOD SPECIMENOrdering Facility: [facility] Address: [address] [place] [address] Performed By: #### 5 7021-8 ####[facility] LABIA [id number] [place] [address] MCV (RBC) [Entitic vol] 95.5 fL Normal 80.0-100.0 [facility] Comment on above: Order Comment: Speci men Type: BLOOD SPECIMENOrdering Facility: [facility] Address: [address] [place] [address] Performed By: #### 5 7021-8 ####[facility] LABIA [id number] [place] [address] Monocytes (Bld) [#/Vol] 0.58 10*3/uL Normal <0.87 [facility] Comment on above: Order Comment: Speci men Type: BLOOD SPECIMENOrdering Facility: [facility] Address: [address] [place] [address] Performed By: #### 5 7021-8 ####[facility] LABCLIA [id number] [place] [address] Monocytes/100 WBC (Bld) 13.5 % Normal [facility] Comment on above: Order Comment: Speci men Type: BLOOD SPECIMENOrdering Facility: [facility] Address: [address] [place] [address] Performed By: #### 5 7021-8 ####[facility] LABCLIA [id number] [place] [address] Neutrophils (Bld) [#/Vol] 1.73 10*3/uL Normal 1.45-7.50 [facility] Comment on above: Order Comment: Speci men Type: BLOOD SPECIMENOrdering Facility: [facility] Address: [address] [place] [address] Performed By: #### 5 7021-8 ####[facility] LABCLIA [id number] [place] [address] Neutrophils/100 WBC (Bld) 40.4 % Normal [facility] Comment on above: Order Comment: Speci men Type: BLOOD SPECIMENOrdering Facility: [facility] Address: [address] [place] [address] Performed By: #### 5 7021-8 ####[facility] LABCLIA [id number] [place] [address] Nucleated RBC (Bld) [#/Vol] 10*3/uL Normal <0.01 [facility] Comment on above: Order Comment: Speci men Type: BLOOD SPECIMENOrdering Facility: [facility] Address: [address] [place] [address] Performed By: #### 5 7021-8 ####[facility] LABCLIA [id number] [place] [address] Nucleated RBC/100 WBC (Bld) [Ratio] 0.0 /100 WBC Normal [facility] Comment on above: Order Comment: Speci men Type: BLOOD SPECIMENOrdering Facility: [facility] Address: [address] [place] [address] Performed By: #### 5 7021-8 ####[facility] LABCLIA [id number] [place] [address] Platelet mean volume (Bld) [Entitic vol] 9.4 fL Normal 9.0-12.7 [facility] Comment on above: Order Comment: Speci men Type: BLOOD SPECIMENOrdering Facility: [facility] Address: [address] [place] [address] Performed By: #### 5 7021-8 ####[facility] LABCLIA [id number] [place] [address] Platelets (Bld) [#/Vol] 245 10*3/uL Normal 150-400 [facility] Comment on above: Order Comment: Speci men Type: BLOOD SPECIMENOrdering Facility: [facility] Address: [address] [place] [address] Performed By: #### 5 7021-8 ####[facility] LABIA [id number] [place] [address] RBC (Bld) [#/Vol] 3.55 10*6/uL Low 4.20-6.00 [facility] Comment on above: Order Comment: Speci men Type: BLOOD SPECIMENOrdering Facility: [facility] Address: [address] [place] [address] Performed By: #### 5 7021-8 ####[facility]IA [id number] [place] [address] WBC (Bld) [#/Vol] 4.29 10*3/uL Normal 3.70-11.00 [facility] Comment on above: Order Comment: Speci men Type: BLOOD SPECIMENOrdering Facility: [facility] Address: [address] [place] [address] Performed By: #### 5 7021-8 ####[facility]IA [id number] [place] [address] CNOVSPon 11-20-2023 CNOVSP Normal [facility] Cancer Ag19-9 SerPl-aCncon 0 11-20-2023 Cancer Ag 19-9 Qn 328.0 [arb'U]/mL High <36.0 [facility] Comment on above: Order Comment: Speci men Type: BLOOD SPECIMENOrdering Facility: [facility] Address: [address] [place] [address] Result Comment: [facility] er antigen 19-9 test is used as an aid in monitoring response to treatment or recurrence in patients with established pancreatic, hepatobiliary, or gastrointestinal malignancies. Clinical correlation is required.The CA 19-9 Antigen test was performed using the [employer] DXI paramagnetic particle chemiluminescent immunoassay method. Results obtained with different assay methods or kits cannot be used interchangeably. Performed By: #### 2 4108-3 ####[facility] LABCLIA [id number] [place] [address] [place] [facility] Comprehensive metabolic 2000 panelOrdered By: Marina Bailey on 11-20-2023 Albumin [Mass/Vol] 3.8 g/dL Low 3.9 - 4.9 g/dL [facility] ALP [Catalytic activity/Vol] 132 U/L High 38 - 113 U/L [facility] ALT [Catalytic activity/Vol] 15 U/L 10 - 54 U/L [facility] Anion gap [Moles/Vol] 8 mmol/L 8 - 15 mmol/L [facility] AST [Catalytic activity/Vol] 17 U/L 14 - 40 U/L [facility] Bilirubin [Mass/Vol] 0.5 mg/dL 0.2 - 1 .3 mg/dL [facility] Calcium [Mass/Vol] 10.4 mg/dL High 8.5 - 10. 2 mg/dL [facility] Chloride [Moles/Vol] 104 mmol/L 98 - 10 7 mmol/L [facility] CO2 [Moles/Vol] 25 mmol/L 22 - 30 mmol/L [facility] Creatinine [Mass/Vol] 0.70 mg/dL Low 0.73 - 1.22 mg/dL [facility] GFR/1.73 sq M.predicted among non-blacks MDRD (S/P/Bld) [Vol rate/Area] 98 mL/min/{1.73_m2} - PINF [facility] Comment on above: Estimated Glomerular Filtration [...] 134 mg/dL High 74 - 99 mg/dL [facility] Comment on above: The [place] Diabete s Association (ADA) provides guidance for [...] Standards of Medical Care in Diabetes 2016, [place] Diabetes Association. Diabetes Care. 2016.39(Suppl 1). Interpretation and review of laboratory results Abnormal [facility] Potassium [Moles/Vol] 4.3 mmol/L 3.7 - 5.1 mmol/L [facility] Protein [Mass/Vol] 6.8 g/dL 6.3 - 8.0 g/dL [facility] Sodium [Moles/Vol] 137 mmol/L 136 - 144 mmol/L [facility] Urea nitrogen [Mass/Vol] 13 mg/dL 9 - 24 mg/dL [facility] Comprehensive metabolic 2000 panelon 11-20-2023 Albumin [Mass/Vol] 3.8 g/dL Low 3.9-4.9 [facility] Comment on above: Order Comment: Speci men Type: BLOOD SPECIMENOrdering Facility: [facility] Address: [address] [place] [address] Performed By: #### 2 4323-8 ####[facility] LABCLIA [id number] [place] [address] ALP [Catalytic activity/Vol] 132 U/L High 38-113 [facility] Comment on above: Order Comment: Speci men Type: BLOOD SPECIMENOrdering Facility: [facility] Address: [address] [place] [address] Performed By: #### 2 4323-8 ####[facility] LABCLIA [id number] [place] [address] ALT [Catalytic activity/Vol] 15 U/L Normal 10-54 [facility] Comment on above: Order Comment: Speci men Type: BLOOD SPECIMENOrdering Facility: [facility] Address: [address] [place] [address] Performed By: #### 2 4323-8 ####[facility] LABCLIA [id number] [place] [address] Anion gap [Moles/Vol] 8 mmol/L Normal 8-15 [facility] Comment on above: Order Comment: Speci men Type: BLOOD SPECIMENOrdering Facility: [facility] Address: [address] [place] [address] Performed By: #### 2 4323-8 ####[facility] LABCLIA [id number] [place] [address] AST [Catalytic activity/Vol] 17 U/L Normal 14-40 [facility] Comment on above: Order Comment: Speci men Type: BLOOD SPECIMENOrdering Facility: [facility] Address: [address] [place] [address] Performed By: #### 2 4323-8 ####[facility] LABCLIA [id number] [place] [address] Bilirubin [Mass/Vol] 0.5 mg/dL Normal 0.2-1.3 [facility] Comment on above: Order Comment: Speci men Type: BLOOD SPECIMENOrdering Facility: [facility] Address: [address] [place] [address] Performed By: #### 2 4323-8 ####[facility] LABCLIA [id number] [place] [address] Calcium [Mass/Vol] 10.4 mg/dL High 8.5-10.2 [facility] Comment on above: Order Comment: Speci men Type: BLOOD SPECIMENOrdering Facility: [facility] Address: [address] [place] [address] Performed By: #### 2 4323-8 ####[facility] LABCLIA [id number] [place] [address] Chloride [Moles/Vol] 104 mmol/L Normal 98-107 [facility] Comment on above: Order Comment: Speci men Type: BLOOD SPECIMENOrdering Facility: [facility] Address: [address] [place] [address] Performed By: #### 2 4323-8 ####[facility] LABCLIA [id number] [place] [address] CO2 [Moles/Vol] 25 mmol/L Normal 22-30 [facility] Comment on above: Order Comment: Speci men Type: BLOOD SPECIMENOrdering Facility: [facility] Address: [address] [place] [address] Performed By: #### 2 4323-8 ####[facility] LABCLIA [id number] [place] [address] Creatinine [Mass/Vol] 0.70 mg/dL Low 0.73-1.22 [facility] Comment on above: Order Comment: Speci men Type: BLOOD SPECIMENOrdering Facility: [facility] Address: [address] [place] [address] Performed By: #### 2 4323-8 ####[facility] LABCLIA [id number] [place] [address] Creatinine and Glomerular filtration rate.predicted panel (S/P/Bld) 98 mL/min/1.73m??? Normal >=60 [facility] Comment on above: Order Comment: Speci men Type: BLOOD SPECIMENOrdering Facility: [facility] Address: [address] [place] [address] Result Comment: Kathy mated Glomerular Filtration Rate [...] actual GFR. Performed By: #### 2 4323-8 ####[facility] LABCLIA [id number] [place] [address] Glucose [Mass/Vol] 134 mg/dL High 74-99 [facility] Comment on above: Order Comment: Speci men Type: BLOOD SPECIMENOrdering Facility: [facility] Address: [address] [place] [address] Result Comment: The [place] Diabetes Association (ADA) provides guidance for cutoff [...] Standards of Medical Care in Diabetes 2016, [place] Diabetes Association. Diabetes Care. 2016.39(Suppl 1). Performed By: #### 2 4323-8 ####[facility] LABCLIA [id number] [place] [address] Potassium [Moles/Vol] 4.3 mmol/L Normal 3.7-5.1 [facility] Comment on above: Order Comment: Rajanii men Type: BLOOD SPECIMENOrdering Facility: [facility] Address: [address] [id number] Performed By: #### 2 4323-8 ####[facility] LABCLIA [id number] [place] [address] Protein [Mass/Vol] 6.8 g/dL Normal 6.3-8.0 [facility] Comment on above: Order Comment: Speci men Type: BLOOD SPECIMENOrdering Facility: [facility] Address: [address] [place], [place] [address] Performed By: #### 2 4323-8 ####[facility] LABCLIA [id number] [place] [address] Sodium [Moles/Vol] 137 mmol/L Normal 136-144 [facility] Comment on above: Order Comment: Speci men Type: BLOOD SPECIMENOrdering Facility: [facility] Address: [address] [place] [address] Performed By: #### 2 4323-8 ####[facility] LABCLIA [id number] [place] [address] Urea nitrogen [Mass/Vol] 13 mg/dL Normal 9-24 [facility] Comment on above: Order Comment: Speci men Type: BLOOD SPECIMENOrdering Facility: [facility] Address: [address] [place] [address] Performed By: #### 2 4323-8 ####[facility] LABCLIA [id number] [place] [address] CT Abdomen and Pelvis W cont rast Kodi 11-19-2023 Interpretation and review of laboratory results Abnormal [facility] Radiology Result ACTIONABLE Abnormal [facility] Comment on above: This report contains [...] be communicated with the ordering provider via 5minutes staff message or phone message by Imaging [...] any questions regarding this interpretation, please call [phone]. If you are unable to reach us at the number above, please feel free to contact [facility] at [phone]. DIVISION OF RADIOLOGY * * *Final Report* * * DATE OF EXAM: Nov 17 2023 11:16AM [facility] 0530 - CT ABD/PEL W IVCON / [...] CT scan report for the abdomen findings. Disposal Worker (topogram) images: No additional findings. DIVISION OF RADIOLOGY Provider, [facility] - 11/19/2023 * * *Final Report* * * DATE OF EXAM: Nov 17 2023 11:16AM [facility] 0530 - CT ABD/PEL W IVCON / [...] CT scan report for the abdomen findings. Disposal Worker (topogram) images: No additional findings. IMPRESSION [...] be communicated with the ordering provider via 5minutes staff message or phone message by Imaging [...] any questions regarding this interpretation, please call [phone]. If you are unable to reach us at the number above, please feel free to contact [facility] eRadiology at [phone]. [facility] CT Chest W contrast Kodi IMPRESSION: [...] any questions regarding this interpretation, please call [phone]. If you are unable to reach us at the number above, please feel free to contact [facility] eRadiology at [phone]. DIVISION OF RADIOLOGY * * *Final Report* * * DATE OF EXAM: Nov 17 2023 11:16AM [facility] 0539 - CT CHEST W IVCON / [...] CT scan report for the abdomen findings. Disposal Worker (topogram) images: No additional findings. DIVISION OF RADIOLOGY Provider, [facility] - 11/19/2023 * * *Final Report* * * DATE OF EXAM: Nov 17 2023 11:16AM [facility] 0539 - CT CHEST W IVCON / [...] CT scan report for the abdomen findings. Disposal Worker (topogram) images: No additional findings. IMPRESSION [...] any questions regarding this interpretation, please call [phone]. If you are unable to reach us at the number above, please feel free to contact [facility] eRadiology at [phone]. [facility] CT Chest W contrast IVOrdere d By: [facility]cf Provider on 11-19-[address] [facility] [address] ABD/PEL W IVCONon 024 CT ABD/PEL W IVCON Invalid Interpretation Code [facility] CT CHEST W IVCONon 4 CT CHEST W IVCON Normal [facility] No Panel Informationon 11-16 Radiology Study observation (narrative) [facility] CNOVSPon 11-02-2023 CNOVSP Normal [facility] CBC W Auto Differential pane l (Bld)on 10-31-2023 Basophils (Bld) [#/Vol] 0.03 10*3/uL [facility] Basophils/100 WBC (Bld) 0.6 % [facility] Differential cell count method Nom (Bld) Auto [facility] Eosinophils (Bld) [#/Vol] 0.04 10*3/uL [facility] Eosinophils/100 WBC (Bld) 0.8 % [facility] Erythrocyte distribution width (RBC) [Ratio] 17.6 % High 11.5 - 15.0 % [facility] Hematocrit (Bld) [Volume fraction] 34.1 % Low 39.0 - 51.0 % [facility] Hemoglobin (Bld) [Mass/Vol] 10.7 g/dL Low 13.0 - 17.0 g/dL [facility] Immature granulocytes (Bld) [#/Vol] 0.03 10*3/uL [facility] Immature granulocytes/100 WBC (Bld) 0.6 % [facility] Interpretation and review of laboratory results Abnormal [facility] Lymphocytes (Bld) [#/Vol] 1.46 10*3/uL [facility] Lymphocytes/100 WBC (Bld) 30.2 % [facility] MCH (RBC) [Entitic mass] 30.2 pg 26.0 - 34.0 pg [facility] MCHC (RBC) [Mass/Vol] 31.4 g/dL 30.5 - 36.0 g/dL [facility] MCV (RBC) [Entitic vol] 96.3 fL 80.0 - 100.0 fL [facility] Monocytes (Bld) [#/Vol] 0.61 10*3/uL [facility] Monocytes/100 WBC (Bld) 12.6 % [facility] Neutrophils (Bld) [#/Vol] 2.66 10*3/uL [facility] Neutrophils/100 WBC (Bld) 55.2 % [facility] Nucleated RBC (Bld) [#/Vol] NINF [facility] Nucleated RBC/100 WBC (Bld) [Ratio] 0.0 % /100 WBC [facility] Platelet mean volume (Bld) [Entitic vol] 9.2 fL 9.0 - 12.7 fL [facility] Platelets (Bld) [#/Vol] 296 10*3/uL [facility] RBC (Bld) [#/Vol] 3.54 10*6/uL Low 4.20 - 6.0 0 m/uL [facility] WBC (Bld) [#/Vol] 4.83 10*3/uL [facility] Basophils (Bld) [#/Vol] 0.03 10*3/uL Normal <0.11 [facility] Comment on above: Order Comment: Speci men Type: BLOOD SPECIMENOrdering Facility: [facility] Address: [address] [place] [address] Performed By: #### 5 7021-8 ####[facility] LABCLIA [id number] [place] [address] Basophils/100 WBC (Bld) 0.6 % Normal [facility] Comment on above: Order Comment: Speci men Type: BLOOD SPECIMENOrdering Facility: [facility] Address: [address] [place] [address] Performed By: #### 5 7021-8 ####[facility] LABCLIA [id number] [place] [address] Differential cell count method Nom (Bld) Auto Normal [facility] Comment on above: Order Comment: Speci men Type: BLOOD SPECIMENOrdering Facility: [facility] Address: [address] [place] [address] Performed By: #### 5 7021-8 ####[facility] LABCLIA [id number] [place] [address] Eosinophils (Bld) [#/Vol] 0.04 10*3/uL Normal <0.46 [facility] Comment on above: Order Comment: Speci men Type: BLOOD SPECIMENOrdering Facility: [facility] Address: [address] [place] [address] Performed By: #### 5 7021-8 ####[facility] LABCLIA [id number] [place] [address] Eosinophils/100 WBC (Bld) 0.8 % Normal [facility] Comment on above: Order Comment: Speci men Type: BLOOD SPECIMENOrdering Facility: [facility] Address: [address] [place] [address] Performed By: #### 5 7021-8 ####[facility] LABCLIA [id number] [place] [address] Erythrocyte distribution width (RBC) [Ratio] 17.6 % High 11.5-15.0 [facility] Comment on above: Order Comment: Speci men Type: BLOOD SPECIMENOrdering Facility: [facility] Address: [address] [place] [address] Performed By: #### 5 7021-8 ####[facility] LABCLIA [id number] [place] [address] Hematocrit (Bld) [Volume fraction] 34.1 % Low 39.0-51.0 [facility] Comment on above: Order Comment: Speci men Type: BLOOD SPECIMENOrdering Facility: [facility] Address: [address] [place] [address] Performed By: #### 5 7021-8 ####[facility] LABCLIA [id number] [place] [address] Hemoglobin (Bld) [Mass/Vol] 10.7 g/dL Low 13.0-17.0 [facility] Comment on above: Order Comment: Speci men Type: BLOOD SPECIMENOrdering Facility: [facility] Address: [address] [place] [address] Performed By: #### 5 7021-8 ####[facility] LABCLIA [id number] [place] [address] Immature granulocytes (Bld) [#/Vol] 0.03 10*3/uL Normal <0.10 [facility] Comment on above: Order Comment: Speci men Type: BLOOD SPECIMENOrdering Facility: [facility] Address: [address] [place] [address] Performed By: #### 5 7021-8 ####[facility] LABCLIA [id number] [place] [address] Immature granulocytes/100 WBC (Bld) 0.6 % Normal [facility] Comment on above: Order Comment: Speci men Type: BLOOD SPECIMENOrdering Facility: [facility] Address: [address] [place] [address] Performed By: #### 5 7021-8 ####[facility] LABCLIA [id number] [place] [address] Lymphocytes (Bld) [#/Vol] 1.46 10*3/uL Normal 1.00-4.00 [facility] Comment on above: Order Comment: Speci men Type: BLOOD SPECIMENOrdering Facility: [facility] Address: [address] [place] [address] Performed By: #### 5 7021-8 ####[facility] LABCLIA [id number] [place] [address] Lymphocytes/100 WBC (Bld) 30.2 % Normal [facility] Comment on above: Order Comment: Speci men Type: BLOOD SPECIMENOrdering Facility: [facility] Address: [address] [place] [address] Performed By: #### 5 7021-8 ####[facility] LABCLIA [id number] [place] [address] MCH (RBC) [Entitic mass] 30.2 pg Normal 26.0-34.0 [facility] Comment on above: Order Comment: Speci men Type: BLOOD SPECIMENOrdering Facility: [facility] Address: [address] [place] [address] Performed By: #### 5 7021-8 ####[facility] LABCLIA [id number] [place] [address] MCHC (RBC) [Mass/Vol] 31.4 g/dL Normal 30.5-36.0 [facility] Comment on above: Order Comment: Speci men Type: BLOOD SPECIMENOrdering Facility: [facility] Address: [address] [place] [address] Performed By: #### 5 7021-8 ####[facility] LABCLIA [id number] [place] [address] MCV (RBC) [Entitic vol] 96.3 fL Normal 80.0-100.0 [facility] Comment on above: Order Comment: Speci men Type: BLOOD SPECIMENOrdering Facility: [facility] Address: [address] [place] [address] Performed By: #### 5 7021-8 ####[facility] LABCLIA [id number] [place] [address] Monocytes (Bld) [#/Vol] 0.61 10*3/uL Normal <0.87 [facility] Comment on above: Order Comment: Speci men Type: BLOOD SPECIMENOrdering Facility: [facility] Address: [address] [place] [address] Performed By: #### 5 7021-8 ####[facility] LABCLIA [id number] [place] [address] Monocytes/100 WBC (Bld) 12.6 % Normal [facility] Comment on above: Order Comment: Speci men Type: BLOOD SPECIMENOrdering Facility: [facility] Address: [address] [place] [address] Performed By: #### 5 7021-8 ####[facility] LABCLIA [id number] [place] [address] Neutrophils (Bld) [#/Vol] 2.66 10*3/uL Normal 1.45-7.50 [facility] Comment on above: Order Comment: Speci men Type: BLOOD SPECIMENOrdering Facility: [facility] Address: [address] [place] [address] Performed By: #### 5 7021-8 ####[facility] LABCLIA [id number] [place] [address] Neutrophils/100 WBC (Bld) 55.2 % Normal [facility] Comment on above: Order Comment: Speci men Type: BLOOD SPECIMENOrdering Facility: [facility] Address: [address] [place] [address] Performed By: #### 5 7021-8 ####[facility] LABCLIA [id number] [place] [address] Nucleated RBC (Bld) [#/Vol] 10*3/uL Normal <0.01 [facility] Comment on above: Order Comment: Speci men Type: BLOOD SPECIMENOrdering Facility: [facility] Address: [address] [place] [address] Performed By: #### 5 7021-8 ####[facility] LABCLIA [id number] [place] [address] Nucleated RBC/100 WBC (Bld) [Ratio] 0.0 /100 WBC Normal [facility] Comment on above: Order Comment: Speci men Type: BLOOD SPECIMENOrdering Facility: [facility] Address: [address] [place] [address] Performed By: #### 5 7021-8 ####[facility] LABCLIA [id number] [place] [address] Platelet mean volume (Bld) [Entitic vol] 9.2 fL Normal 9.0-12.7 [facility] Comment on above: Order Comment: Speci men Type: BLOOD SPECIMENOrdering Facility: [facility] Address: [address] [place] [address] Performed By: #### 5 7021-8 ####[facility] LABCLIA [id number] [place] [address] Platelets (Bld) [#/Vol] 296 10*3/uL Normal 150-400 [facility] Comment on above: Order Comment: Speci men Type: BLOOD SPECIMENOrdering Facility: [facility] Address: [address] [place] [address] Performed By: #### 5 7021-8 ####[facility] LABIA [id number] [place] [address] RBC (Bld) [#/Vol] 3.54 10*6/uL Low 4.20-6.00 [facility] Comment on above: Order Comment: Speci men Type: BLOOD SPECIMENOrdering Facility: [facility] Address: [address] [place] [address] Performed By: #### 5 7021-8 ####[facility] [id number] [place] [address] WBC (Bld) [#/Vol] 4.83 10*3/uL Normal 3.70-11.00 [facility] Comment on above: Order Comment: Speci men Type: BLOOD SPECIMENOrdering Facility: [facility] Address: [address] [place] [address] Performed By: #### 5 7021-8 ####[facility] [id number] [place] [address] CNOVSPon 10-31-2023 CNOVSP Normal [facility] Cancer Ag19-9 SerPl-aCncon 0 10-31-2023 Cancer Ag 19-9 Qn 606.0 [arb'U]/mL High <36.0 [facility] Comment on above: Order Comment: Speci men Type: BLOOD SPECIMENOrdering Facility: [facility] Address: [address] [place] [address] Result Comment: Canc er antigen 19-9 test is used as an aid in monitoring response to treatment or recurrence in patients with established pancreatic, hepatobiliary, or gastrointestinal malignancies. Clinical correlation is required.The CA 19-9 Antigen test was performed using the [employer] [place] [employer] DXI paramagnetic particle chemiluminescent immunoassay method. Results obtained with different assay methods or kits cannot be used interchangeably. Performed By: #### 2 4108-3 ####[facility] LABCLIA [id number] [address] OF [facility] Comprehensive metabolic 2000 panelOrdered By: Elizabeth Yu on 10-31-2023 Albumin [Mass/Vol] 3.7 g/dL Low 3.9 - 4.9 g/dL [facility] ALP [Catalytic activity/Vol] 169 U/L High 38 - 113 U/L [facility] ALT [Catalytic activity/Vol] 31 U/L 10 - 54 U/L [facility] Anion gap [Moles/Vol] 8 mmol/L 8 - 15 mmol/L [facility] AST [Catalytic activity/Vol] 23 U/L 14 - 40 U/L [facility] Bilirubin [Mass/Vol] 0.5 mg/dL 0.2 - 1 .3 mg/dL [facility] Calcium [Mass/Vol] 10.7 mg/dL High 8.5 - 10. 2 mg/dL [facility] Chloride [Moles/Vol] 101 mmol/L 98 - 10 7 mmol/L [facility] CO2 [Moles/Vol] 27 mmol/L 22 - 30 mmol/L [facility] Creatinine [Mass/Vol] 0.73 mg/dL 0.73 - 1.22 mg/dL [facility] GFR/1.73 sq M.predicted among non-blacks MDRD (S/P/Bld) [Vol rate/Area] 97 mL/min/{1.73_m2} - PINF [facility] Comment on above: Estimated Glomerular Filtration [...] 141 mg/dL High 74 - 99 mg/dL [facility] Comment on above: The [place] Diab[employer] Association (ADA) provides guidance for [...] Standards of Medical Care in Diabetes 2016, [place] [employer]. Diabetes Care. 2016.39(Suppl 1). Interpretation and review of laboratory results Abnormal [facility] Potassium [Moles/Vol] 4.5 mmol/L 3.7 - 5.1 mmol/L [facility] Protein [Mass/Vol] 7.5 g/dL 6.3 - 8.0 g/dL [facility] Sodium [Moles/Vol] 136 mmol/L 136 - 144 mmol/L [facility] Urea nitrogen [Mass/Vol] 13 mg/dL 9 - 24 mg/dL [facility] Comprehensive metabolic 2000 panelon 10-31-2023 Albumin [Mass/Vol] 3.7 g/dL Low 3.9-4.9 [facility] Comment on above: Order Comment: Speci men Type: BLOOD SPECIMENOrdering Facility: [facility] Address: [address] [place] [address] Performed By: #### 2 4323-8 ####[facility] LABCLIA [id number] [place] [address] ALP [Catalytic activity/Vol] 169 U/L High 38-113 [facility] Comment on above: Order Comment: Speci men Type: BLOOD SPECIMENOrdering Facility: [facility] Address: [address] [place] [address] Performed By: #### 2 4323-8 ####[facility] LABCLIA [id number] [place] [address] ALT [Catalytic activity/Vol] 31 U/L Normal 10-54 [facility] Comment on above: Order Comment: Speci men Type: BLOOD SPECIMENOrdering Facility: [facility] Address: [address] [id number] Performed By: #### 2 4323-8 ####[facility] LABCLIA [id number] [place] [address] Anion gap [Moles/Vol] 8 mmol/L Normal 8-15 [facility] Comment on above: Order Comment: Speci men Type: BLOOD SPECIMENOrdering Facility: [facility] Address: [address] [place] [address] Performed By: #### 2 4323-8 ####[facility] LABCLIA [id number] [place] [address] AST [Catalytic activity/Vol] 23 U/L Normal 14-40 [facility] Comment on above: Order Comment: Speci men Type: BLOOD SPECIMENOrdering Facility: [facility] Address: [address] [place] [address] Performed By: #### 2 4323-8 ####[facility] LABCLIA [id number] [place] [address] Bilirubin [Mass/Vol] 0.5 mg/dL Normal 0.2-1.3 [facility] Comment on above: Order Comment: Speci men Type: BLOOD SPECIMENOrdering Facility: [facility] Address: [address] [place] [address] Performed By: #### 2 4323-8 ####[facility] LABCLIA [id number] [place] [address] Calcium [Mass/Vol] 10.7 mg/dL High 8.5-10.2 [facility] Comment on above: Order Comment: Speci men Type: BLOOD SPECIMENOrdering Facility: [facility] Address: [address] [place] [address] Performed By: #### 2 4323-8 ####[facility] LABCLIA [id number] [place] [address] Chloride [Moles/Vol] 101 mmol/L Normal 98-107 [facility] Comment on above: Order Comment: Speci men Type: BLOOD SPECIMENOrdering Facility: [facility] Address: [address] [place], [place] [address] Performed By: #### 2 4323-8 ####[facility] LABCLIA [id number] [place] [address] CO2 [Moles/Vol] 27 mmol/L Normal 22-30 [facility] Comment on above: Order Comment: Speci men Type: BLOOD SPECIMENOrdering Facility: [facility] Address: [address] [place] [address] Performed By: #### 2 4323-8 ####[facility] LABCLIA [id number] [place] [address] Creatinine [Mass/Vol] 0.73 mg/dL Normal 0.73-1.22 [facility] Comment on above: Order Comment: Speci men Type: BLOOD SPECIMENOrdering Facility: [facility] Address: [address] [place] [address] Performed By: #### 2 4323-8 ####[facility] LABCLIA [id number] [place] [address] Creatinine and Glomerular filtration rate.predicted panel (S/P/Bld) 97 mL/min/1.73m??? Normal >=60 [facility] Comment on above: Order Comment: Speci men Type: BLOOD SPECIMENOrdering Facility: [facility] Address: [address] [place] [address] Result Comment: Kathy mated Glomerular Filtration Rate [...] actual GFR. Performed By: #### 2 4323-8 ####[facility] LABCLIA [id number] [place] [address] Glucose [Mass/Vol] 141 mg/dL High 74-99 [facility] Comment on above: Order Comment: Speci men Type: BLOOD SPECIMENOrdering Facility: [facility] Address: [address] [place] [address] Result Comment: The [place] Diabetes Association (ADA) provides guidance for cutoff [...] Standards of Medical Care in Diabetes 2016, [place] [employer]. Diabetes Care. 2016.39(Suppl 1). Performed By: #### 2 4323-8 ####[facility] LABCLIA [id number] [place] [address] Potassium [Moles/Vol] 4.5 mmol/L Normal 3.7-5.1 [facility] Comment on above: Order Comment: Speci men Type: BLOOD SPECIMENOrdering Facility: [facility] Address: [address] [place] [address] Performed By: #### 2 4323-8 ####[facility] LABCLIA [id number] [place] [address] Protein [Mass/Vol] 7.5 g/dL Normal 6.3-8.0 [facility] Comment on above: Order Comment: Speci men Type: BLOOD SPECIMENOrdering Facility: [facility] Address: [address] [place] [address] Performed By: #### 2 4323-8 ####[facility] LABCLIA [id number] [place] [address] Sodium [Moles/Vol] 136 mmol/L Normal 136-144 [facility] Comment on above: Order Comment: Speci men Type: BLOOD SPECIMENOrdering Facility: [facility] Address: [address] [place] [address] Performed By: #### 2 4323-8 ####[facility] LABCLIA [id number] [place] [address] Urea nitrogen [Mass/Vol] 13 mg/dL Normal 9-24 [facility] Comment on above: Order Comment: Speci men Type: BLOOD SPECIMENOrdering Facility: [facility] Address: [address] [place] [address] Performed By: #### 2 4323-8 ####[facility] LABCLIA [id number] [place] [address] CNPNon 10-17-2023 CNPN Normal [facility] CNPNon 10-13-2023 CNPN Normal [facility] CBC W Auto Differential pane l (Bld)on 10-11-2023 Basophils (Bld) [#/Vol] 0.04 10*3/uL [facility] Basophils/100 WBC (Bld) 0.4 % [facility] Differential cell count method Nom (Bld) Auto [facility] Eosinophils (Bld) [#/Vol] [facility] Eosinophils/100 WBC (Bld) 0.2 % [facility] Erythrocyte distribution width (RBC) [Ratio] 15.2 % High 11.5 - 15.0 % [facility] Hematocrit (Bld) [Volume fraction] 29.5 % Low 39.0 - 51.0 % [facility] Hemoglobin (Bld) [Mass/Vol] 9.6 g/dL Low 13.0 - 17.0 g/dL [facility] Immature granulocytes (Bld) [#/Vol] 0.12 10*3/uL High NINF [facility] Immature granulocytes/100 WBC (Bld) 1.2 % [facility] Interpretation and review of laboratory results Abnormal [facility] Lymphocytes (Bld) [#/Vol] 1.53 10*3/uL [facility] Lymphocytes/100 WBC (Bld) 15.3 % [facility] MCH (RBC) [Entitic mass] 30.2 pg 26.0 - 34.0 pg [facility] MCHC (RBC) [Mass/Vol] 32.5 g/dL 30.5 - 36.0 g/dL [facility] MCV (RBC) [Entitic vol] 92.8 fL 80.0 - 100.0 fL [facility] Monocytes (Bld) [#/Vol] 0.77 10*3/uL NINF [facility] Monocytes/100 WBC (Bld) 7.7 % [facility] Neutrophils (Bld) [#/Vol] 7.54 10*3/uL High [facility] Neutrophils/100 WBC (Bld) 75.2 % [facility] Nucleated RBC (Bld) [#/Vol] NINF [facility] Nucleated RBC/100 WBC (Bld) [Ratio] 0.0 % /100 WBC [facility] Platelet mean volume (Bld) [Entitic vol] 10.0 fL 9.0 - 12.7 fL [facility] Platelets (Bld) [#/Vol] 196 10*3/uL [facility] RBC (Bld) [#/Vol] 3.18 10*6/uL Low 4.20 - 6.0 0 m/uL [facility] WBC (Bld) [#/Vol] 10.02 10*3/uL [facility] Basophils (Bld) [#/Vol] 0.04 10*3/uL Normal <0.11 [facility] Comment on above: Order Comment: Speci men Type: BLOOD SPECIMENOrdering Facility: [facility] Address: [address] [place] [address] Performed By: #### 5 7021-8 ####[facility] LABCLIA [id number] [place] [address] Basophils/100 WBC (Bld) 0.4 % Normal [facility] Comment on above: Order Comment: Speci men Type: BLOOD SPECIMENOrdering Facility: [facility] Address: [address] [place] [address] Performed By: #### 5 7021-8 ####[facility] LABCLIA [id number] [place] [address] Differential cell count method Nom (Bld) Auto Normal [facility] Comment on above: Order Comment: Speci men Type: BLOOD SPECIMENOrdering Facility: [facility] Address: [address] [place] [address] Performed By: #### 5 7021-8 ####[facility] LABCLIA [id number] [place] [address] Eosinophils (Bld) [#/Vol] 10*3/uL Normal <0.46 [facility] Comment on above: Order Comment: Speci men Type: BLOOD SPECIMENOrdering Facility: [facility] Address: [address] [place] [address] Performed By: #### 5 7021-8 ####[facility] LABCLIA [id number] [place] [address] Eosinophils/100 WBC (Bld) 0.2 % Normal [facility] Comment on above: Order Comment: Speci men Type: BLOOD SPECIMENOrdering Facility: [facility] Address: [address] [place] [address] Performed By: #### 5 7021-8 ####[facility] LABCLIA [id number] [place] [address] Erythrocyte distribution width (RBC) [Ratio] 15.2 % High 11.5-15.0 [facility] Comment on above: Order Comment: Speci men Type: BLOOD SPECIMENOrdering Facility: [facility] Address: [address] [place] [address] Performed By: #### 5 7021-8 ####[facility] LABCLIA [id number] [place] [address] Hematocrit (Bld) [Volume fraction] 29.5 % Low 39.0-51.0 [facility] Comment on above: Order Comment: Speci men Type: BLOOD SPECIMENOrdering Facility: [facility] Address: [address] [place] [address] Performed By: #### 5 7021-8 ####[facility] LABCLIA [id number] [place] [address] Hemoglobin (Bld) [Mass/Vol] 9.6 g/dL Low 13.0-17.0 [facility] Comment on above: Order Comment: Speci men Type: BLOOD SPECIMENOrdering Facility: [facility] Address: [address] [place] [address] Performed By: #### 5 7021-8 ####[facility] LABCLIA [id number] [place] [address] Immature granulocytes (Bld) [#/Vol] 0.12 10*3/uL High <0.10 [facility] Comment on above: Order Comment: Speci men Type: BLOOD SPECIMENOrdering Facility: [facility] Address: [address] [place] [address] Performed By: #### 5 7021-8 ####[facility] LABCLIA [id number] [place] [address] Immature granulocytes/100 WBC (Bld) 1.2 % Normal [facility] Comment on above: Order Comment: Speci men Type: BLOOD SPECIMENOrdering Facility: [facility] Address: [address] [place] [address] Performed By: #### 5 7021-8 ####[facility] LABCLIA [id number] [place] [address] Lymphocytes (Bld) [#/Vol] 1.53 10*3/uL Normal 1.00-4.00 [facility] Comment on above: Order Comment: Speci men Type: BLOOD SPECIMENOrdering Facility: [facility] Address: [address] [place] [address] Performed By: #### 5 7021-8 ####[facility] LABCLIA [id number] [place] [address] Lymphocytes/100 WBC (Bld) 15.3 % Normal [facility] Comment on above: Order Comment: Speci men Type: BLOOD SPECIMENOrdering Facility: [facility] Address: [address] [place] [address] Performed By: #### 5 7021-8 ####[facility] LABCLIA [id number] [place] [address] MCH (RBC) [Entitic mass] 30.2 pg Normal 26.0-34.0 [facility] Comment on above: Order Comment: Speci men Type: BLOOD SPECIMENOrdering Facility: [facility] Address: [address] [place] [address] Performed By: #### 5 7021-8 ####[facility] LABCLIA [id number] [place] [address] MCHC (RBC) [Mass/Vol] 32.5 g/dL Normal 30.5-36.0 [facility] Comment on above: Order Comment: Speci men Type: BLOOD SPECIMENOrdering Facility: [facility] Address: [address] [place] [address] Performed By: #### 5 7021-8 ####[facility] LABCLIA [id number] [place] [address] MCV (RBC) [Entitic vol] 92.8 fL Normal 80.0-100.0 [facility] Comment on above: Order Comment: Speci men Type: BLOOD SPECIMENOrdering Facility: [facility] Address: [address] [place] [address] Performed By: #### 5 7021-8 ####[facility] LABCLIA [id number] [place] [address] Monocytes (Bld) [#/Vol] 0.77 10*3/uL Normal <0.87 [facility] Comment on above: Order Comment: Speci men Type: BLOOD SPECIMENOrdering Facility: [facility] Address: [address] [place] [address] Performed By: #### 5 7021-8 ####[facility] LABCLIA [id number] [place] [address] Monocytes/100 WBC (Bld) 7.7 % Normal [facility] Comment on above: Order Comment: Speci men Type: BLOOD SPECIMENOrdering Facility: [facility] Address: [address] [place] [address] Performed By: #### 5 7021-8 ####[facility] LABCLIA [id number] [place] [address] Neutrophils (Bld) [#/Vol] 7.54 10*3/uL High 1.45-7.50 [facility] Comment on above: Order Comment: Speci men Type: BLOOD SPECIMENOrdering Facility: [facility] Address: [address] [place] [address] Performed By: #### 5 7021-8 ####[facility] LABCLIA [id number] [place] [address] Neutrophils/100 WBC (Bld) 75.2 % Normal [facility] Comment on above: Order Comment: Speci men Type: BLOOD SPECIMENOrdering Facility: [facility] Address: [address] [place] [address] Performed By: #### 5 7021-8 ####[facility] LABCLIA [id number] [place] [address] Nucleated RBC (Bld) [#/Vol] 10*3/uL Normal <0.01 [facility] Comment on above: Order Comment: Speci men Type: BLOOD SPECIMENOrdering Facility: [facility] Address: [address] [place] [address] Performed By: #### 5 7021-8 ####[facility] LABCLIA [id number] [place] [address] Nucleated RBC/100 WBC (Bld) [Ratio] 0.0 /100 WBC Normal [facility] Comment on above: Order Comment: Speci men Type: BLOOD SPECIMENOrdering Facility: [facility] Address: [address] [place] [address] Performed By: #### 5 7021-8 ####[facility] LABCLIA [id number] [place] [address] Platelet mean volume (Bld) [Entitic vol] 10.0 fL Normal 9.0-12.7 [facility] Comment on above: Order Comment: Speci men Type: BLOOD SPECIMENOrdering Facility: [facility] Address: [address] [place] [address] Performed By: #### 5 7021-8 ####[facility] LABCLIA [id number] [place] [address] Platelets (Bld) [#/Vol] 196 10*3/uL Normal 150-400 [facility] Comment on above: Order Comment: Speci men Type: BLOOD SPECIMENOrdering Facility: [facility] Address: [address] [place] [address] Performed By: #### 5 7021-8 ####[facility] LABCLIA [id number] [place] [address] RBC (Bld) [#/Vol] 3.18 10*6/uL Low 4.20-6.00 [facility] Comment on above: Order Comment: Speci men Type: BLOOD SPECIMENOrdering Facility: [facility] Address: [address] [place] [address] Performed By: #### 5 7021-8 ####[facility] LABCLIA [id number] [place] [address] WBC (Bld) [#/Vol] 10.02 10*3/uL Normal 3.70-11.00 [facility] Comment on above: Order Comment: Speci men Type: BLOOD SPECIMENOrdering Facility: [facility] Address: [address] [place] [address] Performed By: #### 5 7021-8 ####[facility] LABCLIA [id number] [place] [address] CNNURSEon 10-11-2023 CNNURSE Normal [facility] CNOVSPon 10-11-2023 CNOVSP Normal [facility] Comprehensive metabolic 2000 panelon 10-11-2023 Albumin [Mass/Vol] 2.9 g/dL Low 3.9 - 4.9 g/dL [facility] ALP [Catalytic activity/Vol] 111 U/L 38 - 113 U/L [facility] Comment on above: Results may be false ly decreased due to interference from hemolysis. Suggest reorder as clinically indicated. ALT [Catalytic activity/Vol] 18 U/L 10 - 54 U/L [facility] Comment on above: Results may be false ly increased due to interference from hemolysis. Suggest reorder as clinically indicated. Anion gap [Moles/Vol] 9 mmol/L 9 - 18 mmol/L [facility] AST [Catalytic activity/Vol] 52 U/L High 14 - 40 U/L [facility] Comment on above: Results may be false ly increased due to interference from hemolysis. Suggest reorder as clinically indicated. Bilirubin [Mass/Vol] 0.5 mg/dL 0.2 - 1 .3 mg/dL [facility] Calcium [Mass/Vol] 9.7 mg/dL 8.5 - 10. 2 mg/dL [facility] Chloride [Moles/Vol] 96 mmol/L Low 97 - 10 5 mmol/L [facility] CO2 [Moles/Vol] 23 mmol/L 22 - 30 mmol/L [facility] Creatinine [Mass/Vol] 0.71 mg/dL Low 0.73 - 1.22 mg/dL [facility] GFR/1.73 sq M.predicted among non-blacks MDRD (S/P/Bld) [Vol rate/Area] 97 mL/min/{1.73_m2} - PINF [facility] Comment on above: Estimated Glomerular Filtration [...] High 74 - 99 mg/dL [facility] Comment on above: The [place] Diab[employer] Association (ADA) provides guidance for [...] Standards of Medical Care in Diabetes 2016, [place] [employer]. Diabetes Care. 2016.39(Suppl 1). Interpretation and review of laboratory results Abnormal [facility] Potassium [Moles/Vol] [facility] Comment on above: Unable to assay due to interference from hemolysis. Suggest reorder as clinically indicated. Protein [Mass/Vol] 7.0 g/dL 6.3 - 8.0 g/dL [facility] Sodium [Moles/Vol] 128 mmol/L Low 136 - 144 mmol/L [facility] Urea nitrogen [Mass/Vol] 14 mg/dL 9 - 24 mg/dL [facility] Albumin [Mass/Vol] 2.9 g/dL Low 3.9-4.9 [facility] Comment on above: Order Comment: Speci men Type: BLOOD SPECIMENOrdering Facility: [facility] Address: [address] [place] [address] Performed By: #### 2 4323-8 ####[facility] LABCLIA [id number] [place] [address] [place] ALP [Catalytic activity/Vol] 111 U/L Normal 38-113 [facility] Comment on above: Order Comment: Speci men Type: BLOOD SPECIMENOrdering Facility: [facility] Address: [address] [place] [address] Result Comment: Resu lts may be falsely decreased due to interference from hemolysis. Suggest reorder as clinically indicated. Performed By: #### 2 4323-8 ####[facility] LABCLIA [id number] [place] [address] [place] ALT [Catalytic activity/Vol] 18 U/L Normal 10-54 [facility] Comment on above: Order Comment: Speci men Type: BLOOD SPECIMENOrdering Facility: [facility] Address: [address] [place] [address] Result Comment: Resu lts may be falsely increased due to interference from hemolysis. Suggest reorder as clinically indicated. Performed By: #### 2 4323-8 ####[facility] LABCLIA [id number] [place] [address] [place] Anion gap [Moles/Vol] 9 mmol/L Normal 9-18 [facility] Comment on above: Order Comment: Speci men Type: BLOOD SPECIMENOrdering Facility: [facility] Address: [address] [place] [address] Performed By: #### 2 4323-8 ####[facility] LABCLIA [id number] [place] [address] [place] AST [Catalytic activity/Vol] 52 U/L High 14-40 [facility] Comment on above: Order Comment: Speci men Type: BLOOD SPECIMENOrdering Facility: [facility] Address: [address] [place] [address] Result Comment: Resu lts may be falsely increased due to interference from hemolysis. Suggest reorder as clinically indicated. Performed By: #### 2 4323-8 ####[facility] LABCLIA [id number] [place] [address] [place] Bilirubin [Mass/Vol] 0.5 mg/dL Normal 0.2-1.3 [facility] Comment on above: Order Comment: Speci men Type: BLOOD SPECIMENOrdering Facility: [facility] Address: [address] [place] [address] Performed By: #### 2 4323-8 ####[facility] LABCLIA [id number] [place] [address] [place] Calcium [Mass/Vol] 9.7 mg/dL Normal 8.5-10.2 [facility] Comment on above: Order Comment: Speci men Type: BLOOD SPECIMENOrdering Facility: [facility] Address: [address] [place] [address] Performed By: #### 2 4323-8 ####[facility] LABCLIA [id number] [place] [address] [place] Chloride [Moles/Vol] 96 mmol/L Low 97-105 [facility] Comment on above: Order Comment: Speci men Type: BLOOD SPECIMENOrdering Facility: [facility] Address: [address] [place] [address] Performed By: #### 2 4323-8 ####[facility] LABCLIA [id number] [place] [address] [place] CO2 [Moles/Vol] 23 mmol/L Normal 22-30 [facility] Comment on above: Order Comment: Speci men Type: BLOOD SPECIMENOrdering Facility: [facility] Address: [address] [place] [address] Performed By: #### 2 4323-8 ####[facility] LABCLIA [id number] [place] [address] [place] Creatinine [Mass/Vol] 0.71 mg/dL Low 0.73-1.22 [facility] Comment on above: Order Comment: Speci men Type: BLOOD SPECIMENOrdering Facility: [facility] Address: [address] [place] [address] Performed By: #### 2 4323-8 ####[facility] LABCLIA [id number] [place] [address] [place] Creatinine and Glomerular filtration rate.predicted panel (S/P/Bld) 97 mL/min/1.73m??? Normal >=60 [facility] Comment on above: Order Comment: Speci men Type: BLOOD SPECIMENOrdering Facility: [facility] Address: [address] [place] [address] Result Comment: Kathy mated Glomerular Filtration Rate [...] actual GFR. Performed By: #### 2 4323-8 ####[facility] LABCLIA [id number] [place] [address] [place] Glucose [Mass/Vol] 158 mg/dL High 74-99 [facility] Comment on above: Order Comment: Speci men Type: BLOOD SPECIMENOrdering Facility: [facility] Address: [address] [place] [address] Result Comment: The [place] Diabetes Association (ADA) provides guidance for cutoff [...] Standards of Medical Care in Diabetes 2016, [place] [employer]. Diabetes Care. 2016.39(Suppl 1). Performed By: #### 2 4323-8 ####[facility] [facility] LABCLIA [id number] [place] [address] [place] Potassium [Moles/Vol] Normal [facility] Comment on above: Order Comment: Speci men Type: BLOOD SPECIMENOrdering Facility: [facility] Address: [address] [place] [address] Result Comment: Unab le to assay due to interference from hemolysis. Suggest reorder as clinically indicated. Performed By: #### 2 4323-8 ####[facility] LABCLIA [id number] [place] [address] [place] Protein [Mass/Vol] 7.0 g/dL Normal 6.3-8.0 [facility] Comment on above: Order Comment: Speci men Type: BLOOD SPECIMENOrdering Facility: [facility] Address: [address] [place] [address] Performed By: #### 2 4323-8 ####[facility] LABCLIA [id number] [place] [address] [place] Sodium [Moles/Vol] 128 mmol/L Low 136-144 [facility] Comment on above: Order Comment: Speci men Type: BLOOD SPECIMENOrdering Facility: [facility] Address: [address] [place] [address] Performed By: #### 2 4323-8 ####[facility] LABCLIA [id number] [place] [address] [place] Urea nitrogen [Mass/Vol] 14 mg/dL Normal 9-24 [facility] Comment on above: Order Comment: Speci men Type: BLOOD SPECIMENOrdering Facility: [facility] Address: [address] [place] [address] Performed By: #### 2 4323-8 ####[facility] LABCLIA [id number] [place] [address] [place] UA DIP, URINE (POC)on 2023 BILIRUBIN UA (POCT) Negative Negative [facility] CLARITY UA (POCT) Slightly Cloudy Cl [facility] COLOR UA (POCT) Yellow [facility] GLUCOSE UA (POCT) Negative Negative mg/dL [facility] Hemoglobin Ql (U) Negative Negative [facility] Interpretation and review of laboratory results Abnormal [facility] KETONE UA (POCT) Negative Negative mg/dL [facility] LEUKOCYTES UA (POCT) Trace Abnormal Negative [facility] NITRITE UA (POCT) Negative Negative [facility] PH UA (POCT) 6.5 4.5 - 8.0 [facility] Protein Ql (U) Negative Negative mg/dL [facility] SPECIFIC GRAVITY UA (POCT) 1.015 1.005 - 1.030 [facility] UROBILINOGEN UA (POCT) 0.2 Normal E.U./dL [facility] Location:[facility], [address] [place] [address] , [place], [place], [address] [facility] POINT OF CARE [facility] CNPNon 10-05-2023 CNPN Normal [facility] CNPNon 10-04-2023 CNPN Normal [facility] CBC W Auto Differential pane l (Bld)on 10-03-2023 Basophils (Bld) [#/Vol] 0.04 10*3/uL NINF [facility] Basophils/100 WBC (Bld) 0.4 % [facility] Differential cell count method Nom (Bld) Auto [facility] Eosinophils (Bld) [#/Vol] [facility] Eosinophils/100 WBC (Bld) 0.1 % [facility] Erythrocyte distribution width (RBC) [Ratio] 14.2 % 11.5 - 15.0 % [facility] Hematocrit (Bld) [Volume fraction] 29.5 % Low 39.0 - 51.0 % [facility] Hemoglobin (Bld) [Mass/Vol] 9.6 g/dL Low 13.0 - 17.0 g/dL [facility] Immature granulocytes (Bld) [#/Vol] 0.18 10*3/uL High [facility] Immature granulocytes/100 WBC (Bld) 1.8 % [facility] Interpretation and review of laboratory results Abnormal [facility] Lymphocytes (Bld) [#/Vol] 1.28 10*3/uL [facility] Lymphocytes/100 WBC (Bld) 13.0 % [facility] MCH (RBC) [Entitic mass] 31.4 pg 26.0 - 34.0 pg [facility] MCHC (RBC) [Mass/Vol] 32.5 g/dL 30.5 - 36.0 g/dL [facility] MCV (RBC) [Entitic vol] 96.4 fL 80.0 - 100.0 fL [facility] Monocytes (Bld) [#/Vol] 1.25 10*3/uL High NINF [facility] Monocytes/100 WBC (Bld) 12.7 % [facility] Neutrophils (Bld) [#/Vol] 7.08 10*3/uL [facility] Neutrophils/100 WBC (Bld) 72.0 % [facility] Nucleated RBC (Bld) [#/Vol] NINF [facility] Nucleated RBC/100 WBC (Bld) [Ratio] 0.0 % /100 WBC [facility] Platelet mean volume (Bld) [Entitic vol] 9.0 fL 9.0 - 12.7 fL [facility] Platelets (Bld) [#/Vol] 407 10*3/uL High [facility] RBC (Bld) [#/Vol] 3.06 10*6/uL Low 4.20 - 6.0 0 m/uL [facility] WBC (Bld) [#/Vol] 9.84 10*3/uL [facility] Basophils (Bld) [#/Vol] 0.04 10*3/uL Normal <0.11 [facility] Comment on above: Order Comment: Speci men Type: BLOOD SPECIMENOrdering Facility: [facility] Address: [address] [place] [address] Performed By: #### 5 7021-8 ####[facility] LABCLIA [id number] [place] [address] Basophils/100 WBC (Bld) 0.4 % Normal [facility] Comment on above: Order Comment: Speci men Type: BLOOD SPECIMENOrdering Facility: [facility] Address: [address] [place] [address] Performed By: #### 5 7021-8 ####[facility] LABCLIA [id number] [place] [address] Differential cell count method Nom (Bld) Auto Normal [facility] Comment on above: Order Comment: Speci men Type: BLOOD SPECIMENOrdering Facility: [facility] Address: [address] [place] [address] Performed By: #### 5 7021-8 ####[facility] LABCLIA [id number] [place] [address] Eosinophils (Bld) [#/Vol] 10*3/uL Normal <0.46 [facility] Comment on above: Order Comment: Speci men Type: BLOOD SPECIMENOrdering Facility: [facility] Address: [address] [place] [address] Performed By: #### 5 7021-8 ####[facility] LABCLIA [id number] [place] [address] Eosinophils/100 WBC (Bld) 0.1 % Normal [facility] Comment on above: Order Comment: Speci men Type: BLOOD SPECIMENOrdering Facility: [facility] Address: [address] [place] [address] Performed By: #### 5 7021-8 ####[facility] LABCLIA [id number] [place] [address] Erythrocyte distribution width (RBC) [Ratio] 14.2 % Normal 11.5-15.0 [facility] Comment on above: Order Comment: Speci men Type: BLOOD SPECIMENOrdering Facility: [facility] Address: [address] [place] [address] Performed By: #### 5 7021-8 ####[facility] LABCLIA [id number] [place] [address] Hematocrit (Bld) [Volume fraction] 29.5 % Low 39.0-51.0 [facility] Comment on above: Order Comment: Speci men Type: BLOOD SPECIMENOrdering Facility: [facility] Address: [address] [place] [address] Performed By: #### 5 7021-8 ####[facility] LABCLIA [id number] [place] [address] Hemoglobin (Bld) [Mass/Vol] 9.6 g/dL Low 13.0-17.0 [facility] Comment on above: Order Comment: Speci men Type: BLOOD SPECIMENOrdering Facility: [facility] Address: [address] [place] [address] Performed By: #### 5 7021-8 ####[facility] LABCLIA [id number] [place] [address] Immature granulocytes (Bld) [#/Vol] 0.18 10*3/uL High <0.10 [facility] Comment on above: Order Comment: Speci men Type: BLOOD SPECIMENOrdering Facility: [facility] Address: [address] [place] [address] Performed By: #### 5 7021-8 ####[facility] LABCLIA [id number] [place] [address] Immature granulocytes/100 WBC (Bld) 1.8 % Normal [facility] Comment on above: Order Comment: Speci men Type: BLOOD SPECIMENOrdering Facility: [facility] Address: [address] [place] [address] Performed By: #### 5 7021-8 ####[facility] LABCLIA [id number] [place] [address] Lymphocytes (Bld) [#/Vol] 1.28 10*3/uL Normal 1.00-4.00 [facility] Comment on above: Order Comment: Speci men Type: BLOOD SPECIMENOrdering Facility: [facility] Address: [address] [place] [address] Performed By: #### 5 7021-8 ####[facility] LABCLIA [id number] [place] [address] Lymphocytes/100 WBC (Bld) 13.0 % Normal [facility] Comment on above: Order Comment: Speci men Type: BLOOD SPECIMENOrdering Facility: [facility] Address: [address] [place] [address] Performed By: #### 5 7021-8 ####[facility] LABCLIA [id number] [place] [address] MCH (RBC) [Entitic mass] 31.4 pg Normal 26.0-34.0 [facility] Comment on above: Order Comment: Speci men Type: BLOOD SPECIMENOrdering Facility: [facility] Address: [address] [place] [address] Performed By: #### 5 7021-8 ####[facility] LABCLIA [id number] [place] [address] MCHC (RBC) [Mass/Vol] 32.5 g/dL Normal 30.5-36.0 [facility] Comment on above: Order Comment: Speci men Type: BLOOD SPECIMENOrdering Facility: [facility] Address: [address] [place] [address] Performed By: #### 5 7021-8 ####[facility] LABCLIA [id number] [place] [address] MCV (RBC) [Entitic vol] 96.4 fL Normal 80.0-100.0 [facility] Comment on above: Order Comment: Speci men Type: BLOOD SPECIMENOrdering Facility: [facility] Address: [address] [place] [address] Performed By: #### 5 7021-8 ####[facility] LABCLIA [id number] [place] [address] Monocytes (Bld) [#/Vol] 1.25 10*3/uL High <0.87 [facility] Comment on above: Order Comment: Speci men Type: BLOOD SPECIMENOrdering Facility: [facility] Address: [address] [place] [address] Performed By: #### 5 7021-8 ####[facility] LABCLIA [id number] [place] [address] Monocytes/100 WBC (Bld) 12.7 % Normal [facility] Comment on above: Order Comment: Speci men Type: BLOOD SPECIMENOrdering Facility: [facility] Address: [address] [place] [address] Performed By: #### 5 7021-8 ####[facility] LABCLIA [id number] [place] [address] Neutrophils (Bld) [#/Vol] 7.08 10*3/uL Normal 1.45-7.50 [facility] Comment on above: Order Comment: Speci men Type: BLOOD SPECIMENOrdering Facility: [facility] Address: [address] [place] [address] Performed By: #### 5 7021-8 ####[facility] LABCLIA [id number] [place] [address] Neutrophils/100 WBC (Bld) 72.0 % Normal [facility] Comment on above: Order Comment: Speci men Type: BLOOD SPECIMENOrdering Facility: [facility] Address: [address] [place] [address] Performed By: #### 5 7021-8 ####[facility] LABCLIA [id number] [place] [address] Nucleated RBC (Bld) [#/Vol] 10*3/uL Normal <0.01 [facility] Comment on above: Order Comment: Speci men Type: BLOOD SPECIMENOrdering Facility: [facility] Address: [address] [place] [address] Performed By: #### 5 7021-8 ####[facility] LABCLIA [id number] [place] [address] Nucleated RBC/100 WBC (Bld) [Ratio] 0.0 /100 WBC Normal [facility] Comment on above: Order Comment: Speci men Type: BLOOD SPECIMENOrdering Facility: [facility] Address: [address] [place] [address] Performed By: #### 5 7021-8 ####[facility] LABCLIA [id number] [place] [address] Platelet mean volume (Bld) [Entitic vol] 9.0 fL Normal 9.0-12.7 [facility] Comment on above: Order Comment: Speci men Type: BLOOD SPECIMENOrdering Facility: [facility] Address: [address] [place] [address] Performed By: #### 5 7021-8 ####[facility] LABCLIA [id number] [place] [address] Platelets (Bld) [#/Vol] 407 10*3/uL High 150-400 [facility] Comment on above: Order Comment: Speci men Type: BLOOD SPECIMENOrdering Facility: [facility] Address: [address] [place] [address] Performed By: #### 5 7021-8 ####[facility] LABIA [id number] [place] [address] RBC (Bld) [#/Vol] 3.06 10*6/uL Low 4.20-6.00 [facility] Comment on above: Order Comment: Speci men Type: BLOOD SPECIMENOrdering Facility: [facility] Address: [address] [place] [address] Performed By: #### 5 7021-8 ####[facility] LABIA [id number] [place] [address] WBC (Bld) [#/Vol] 9.84 10*3/uL Normal 3.70-11.00 [facility] Comment on above: Order Comment: Speci men Type: BLOOD SPECIMENOrdering Facility: [facility] Address: [address] [place] [address] Performed By: #### 5 7021-8 ####[facility] LABIA [id number] [place] [address] CNOVSPon 10-03-2023 CNOVSP Normal [facility] CNPNon 10-03-2023 CNPN Normal [facility] Cancer Ag19-9 SerPl-aCncon 0 10-03-2023 Cancer Ag 19-9 Qn 234.0 [arb'U]/mL High <36.0 [facility] Comment on above: Order Comment: Speci men Type: BLOOD SPECIMENOrdering Facility: [facility] Address: [address] [place] [address] Result Comment: Canc er antigen 19-9 test is used as an aid in monitoring response to treatment or recurrence in patients with established pancreatic, hepatobiliary, or gastrointestinal malignancies. Clinical correlation is required.The CA 19-9 Antigen test was performed using the [employer] DXI paramagnetic particle chemiluminescent immunoassay method. Results obtained with different assay methods or kits cannot be used interchangeably. Performed By: #### 2 4108-3 ####[facility] LABCLIA [id number] [place] [address] [place] Comprehensive metabolic 2000 panelOrdered By: Elizabeth Yu on 10-03-2023 Albumin [Mass/Vol] 3.0 g/dL Low 3.9 - 4.9 g/dL [facility] ALP [Catalytic activity/Vol] 110 U/L 38 - 113 U/L [facility] ALT [Catalytic activity/Vol] 10 U/L 10 - 54 U/L [facility] Anion gap [Moles/Vol] 8 mmol/L Low 9 - 18 mmol/L [facility] AST [Catalytic activity/Vol] 11 U/L Low 14 - 40 U/L [facility] Bilirubin [Mass/Vol] 0.6 mg/dL 0.2 - 1 .3 mg/dL [facility] Calcium [Mass/Vol] 10.4 mg/dL High 8.5 - 10. 2 mg/dL [facility] Chloride [Moles/Vol] 100 mmol/L 97 - 10 5 mmol/L [facility] CO2 [Moles/Vol] 27 mmol/L 22 - 30 mmol/L [facility] Creatinine [Mass/Vol] 0.83 mg/dL 0.73 - 1.22 mg/dL [facility] GFR/1.73 sq M.predicted among non-blacks MDRD (S/P/Bld) [Vol rate/Area] 93 mL/min/{1.73_m2} - PINF [facility] Comment on above: Estimated Glomerular Filtration [...] High 74 - 99 mg/dL [facility] Comment on above: The [place] Diab[employer] s Association (ADA) provides guidance for [...] Standards of Medical Care in Diabetes 2016, [place] [employer] Association. Diabetes Care. 2016.39(Suppl 1). Interpretation and review of laboratory results Abnormal [facility] Potassium [Moles/Vol] 4.3 mmol/L 3.7 - 5.1 mmol/L [facility] Protein [Mass/Vol] 6.9 g/dL 6.3 - 8.0 g/dL [facility] Sodium [Moles/Vol] 135 mmol/L Low 136 - 144 mmol/L [facility] Urea nitrogen [Mass/Vol] 13 mg/dL 9 - 24 mg/dL [facility] Comprehensive metabolic 2000 panelon 10-03-2023 Albumin [Mass/Vol] 3.0 g/dL Low 3.9-4.9 [facility] Comment on above: Order Comment: Speci men Type: BLOOD SPECIMENOrdering Facility: [facility] Address: [address] [place] [address] Performed By: #### 2 4323-8 ####[facility] LABCLIA [id number] [place] [address] ALP [Catalytic activity/Vol] 110 U/L Normal 38-113 [facility] Comment on above: Order Comment: Speci men Type: BLOOD SPECIMENOrdering Facility: [facility] Address: [address] [place] [address] Performed By: #### 2 4323-8 ####[facility] LABCLIA [id number] [place] [address] ALT [Catalytic activity/Vol] 10 U/L Normal 10-54 [facility] Comment on above: Order Comment: Speci men Type: BLOOD SPECIMENOrdering Facility: [facility] Address: [address] [place] [address] Performed By: #### 2 4323-8 ####[facility] LABCLIA [id number] [place] [address] Anion gap [Moles/Vol] 8 mmol/L Low 9-18 [facility] Comment on above: Order Comment: Speci men Type: BLOOD SPECIMENOrdering Facility: [facility] Address: [address] [place] [address] Performed By: #### 2 4323-8 ####[facility] LABCLIA [id number] [place] [address] AST [Catalytic activity/Vol] 11 U/L Low 14-40 [facility] Comment on above: Order Comment: Speci men Type: BLOOD SPECIMENOrdering Facility: [facility] Address: [address] [place] [address] Performed By: #### 2 4323-8 ####[facility] LABCLIA [id number] [place] [address] Bilirubin [Mass/Vol] 0.6 mg/dL Normal 0.2-1.3 [facility] Comment on above: Order Comment: Speci men Type: BLOOD SPECIMENOrdering Facility: [facility] Address: [address] [place] [address] Performed By: #### 2 4323-8 ####[facility] LABCLIA [id number] [place] [address] Calcium [Mass/Vol] 10.4 mg/dL High 8.5-10.2 [facility] Comment on above: Order Comment: Speci men Type: BLOOD SPECIMENOrdering Facility: [facility] Address: [address] [place] [address] Performed By: #### 2 4323-8 ####[facility] LABCLIA [id number] [place] [address] Chloride [Moles/Vol] 100 mmol/L Normal 97-105 [facility] Comment on above: Order Comment: Speci men Type: BLOOD SPECIMENOrdering Facility: [facility] Address: [address] [place] [address] Performed By: #### 2 4323-8 ####[facility] LABCLIA [id number] [place] [address] CO2 [Moles/Vol] 27 mmol/L Normal 22-30 [facility] Comment on above: Order Comment: Speci men Type: BLOOD SPECIMENOrdering Facility: [facility] Address: [address] [place] [address] Performed By: #### 2 4323-8 ####[facility] LABCLIA [id number] [place] [address] Creatinine [Mass/Vol] 0.83 mg/dL Normal 0.73-1.22 [facility] Comment on above: Order Comment: Speci men Type: BLOOD SPECIMENOrdering Facility: [facility] Address: [address] [place] [address] Performed By: #### 2 4323-8 ####[facility] LABCLIA [id number] [place] [address] Creatinine and Glomerular filtration rate.predicted panel (S/P/Bld) 93 mL/min/1.73m??? Normal >=60 [facility] Comment on above: Order Comment: Speci men Type: BLOOD SPECIMENOrdering Facility: [facility] Address: [address] [place] [address] Result Comment: Kathy mated Glomerular Filtration Rate [...] actual GFR. Performed By: #### 2 4323-8 ####[facility] LABIA [id number] [place] [address] Glucose [Mass/Vol] 167 mg/dL High 74-99 [facility] Comment on above: Order Comment: Speci men Type: BLOOD SPECIMENOrdering Facility: [facility] Address: [address] [place], [place] [address] Result Comment: The [place] Diabetes Association (ADA) provides guidance for cutoff [...] Standards of Medical Care in Diabetes 2016, [place] [employer] Association. Diabetes Care. 2016.39(Suppl 1). Performed By: #### 2 4323-8 ####[facility] LABCLIA [id number] [place] [address] Potassium [Moles/Vol] 4.3 mmol/L Normal 3.7-5.1 [facility] Comment on above: Order Comment: Speci men Type: BLOOD SPECIMENOrdering Facility: [facility] Address: [address] [place] [address] Performed By: #### 2 4323-8 ####[facility] LABCLIA [id number] [place] [address] Protein [Mass/Vol] 6.9 g/dL Normal 6.3-8.0 [facility] Comment on above: Order Comment: Rajanii men Type: BLOOD SPECIMENOrdering Facility: [facility] Address: [address] [place] [address] Performed By: #### 2 4323-8 ####[facility] LABCLIA [id number] [place] [address] Sodium [Moles/Vol] 135 mmol/L Low 136-144 [facility] Comment on above: Order Comment: Speci men Type: BLOOD SPECIMENOrdering Facility: [facility] Address: [address] [place], [place] [address] Performed By: #### 2 4323-8 ####[facility] LABCLIA [id number] [place] [address] Urea nitrogen [Mass/Vol] 13 mg/dL Normal 9-24 [facility] Comment on above: Order Comment: Speci men Type: BLOOD SPECIMENOrdering Facility: [facility] Address: [address] [place] [address] Performed By: #### 2 4323-8 ####[facility] LABCLIA [id number] [place] [address] XR CHEST 2V FRONTAL/LATon XR CHEST 2V FRONTAL/LAT Normal [facility] XR Chest PA and Lateralon IMPRESSION: No acute radiographic abnormality. Transcribe Date/Time: Oct 03 2023 1:45P Dictated by: JUAN CARLOS LINCOLN MD This examination was interpreted and the report reviewed and electronically signed by: JUAN CRALOS LINCOLN MD on Oct 03 2023 1:51PM EST Thank you for allowing us to participate in the care of your patient. Should there be any questions regarding this interpretation, please call [phone]. If you are unable to reach us at the number above, please feel free to contact [facility] at [phone]. DIVISION OF RADIOLOGY * * *Final Report* [...] any questions regarding this interpretation, please call [phone]. If you are unable to reach us at the number above, please feel free to contact [facility] at [phone]. [facility] Radiology Study observation (narrative) [facility] XR Chest PA and LateralOrder ed By: Ccf Provider on 10-03-2023 [facility] CNPLivia 09-25-2023 CNPN Normal [facility] CNPNon 09-18-2023 CNPN Normal [facility] CBC W Auto Differential pane l (Bld)on 09-13-2023 Basophils (Bld) [#/Vol] [facility] Basophils/100 WBC (Bld) 0.5 % [facility] Differential cell count method Nom (Bld) Auto [facility] Eosinophils (Bld) [#/Vol] 0.03 10*3/uL [facility] Eosinophils/100 WBC (Bld) 0.8 % [facility] Erythrocyte distribution width (RBC) [Ratio] 14.6 % 11.5 - 15.0 % [facility] Hematocrit (Bld) [Volume fraction] 35.3 % Low 39.0 - 51.0 % [facility] Hemoglobin (Bld) [Mass/Vol] 11.4 g/dL Low 13.0 - 17.0 g/dL [facility] Immature granulocytes (Bld) [#/Vol] [facility] Immature granulocytes/100 WBC (Bld) 0.3 % [facility] Interpretation and review of laboratory results Abnormal [facility] Lymphocytes (Bld) [#/Vol] 1.33 10*3/uL [facility] Lymphocytes/100 WBC (Bld) 34.2 % [facility] MCH (RBC) [Entitic mass] 33.2 pg 26.0 - 34.0 pg [facility] MCHC (RBC) [Mass/Vol] 32.3 g/dL 30.5 - 36.0 g/dL [facility] [facility] MCV (RBC) [Entitic vol] 102.9 fL High 80.0 - 100.0 fL [facility] Monocytes (Bld) [#/Vol] 0.59 10*3/uL [facility] Monocytes/100 WBC (Bld) 15.2 % [facility] Neutrophils (Bld) [#/Vol] 1.91 10*3/uL [facility] Neutrophils/100 WBC (Bld) 49.0 % [facility] Nucleated RBC (Bld) [#/Vol] [facility] Nucleated RBC/100 WBC (Bld) [Ratio] 0.0 % /100 WBC [facility] Platelet mean volume (Bld) [Entitic vol] 10.0 fL 9.0 - 12.7 fL [facility] Platelets (Bld) [#/Vol] 255 10*3/uL [facility] RBC (Bld) [#/Vol] 3.43 10*6/uL Low 4.20 - 6.0 0 m/uL [facility] WBC (Bld) [#/Vol] 3.89 10*3/uL [facility] Basophils (Bld) [#/Vol] 10*3/uL Normal <0.11 [facility] Comment on above: Order Comment: Speci men Type: BLOOD SPECIMENOrdering Facility: [facility] Address: [address] [place] [address] Performed By: #### 5 7021-8 ####[facility] LABCLIA [id number] [place] [address] Basophils/100 WBC (Bld) 0.5 % Normal [facility] Comment on above: Order Comment: Speci men Type: BLOOD SPECIMENOrdering Facility: [facility] Address: [address] [place] [address] Performed By: #### 5 7021-8 ####[facility] LABCLIA [id number] [place] [address] Differential cell count method Nom (Bld) Auto Normal [facility] Comment on above: Order Comment: Speci men Type: BLOOD SPECIMENOrdering Facility: [facility] Address: [address] [place] [address] Performed By: #### 5 7021-8 ####[facility] LABCLIA [id number] [place] [address] Eosinophils (Bld) [#/Vol] 0.03 10*3/uL Normal <0.46 [facility] Comment on above: Order Comment: Speci men Type: BLOOD SPECIMENOrdering Facility: [facility] Address: [address] [place] [address] Performed By: #### 5 7021-8 ####[facility] LABCLIA [id number] [place] [address] Eosinophils/100 WBC (Bld) 0.8 % Normal [facility] Comment on above: Order Comment: Speci men Type: BLOOD SPECIMENOrdering Facility: [facility] Address: [address] [place] [address] Performed By: #### 5 7021-8 ####[facility] LABCLIA [id number] [place] [address] Erythrocyte distribution width (RBC) [Ratio] 14.6 % Normal 11.5-15.0 [facility] Comment on above: Order Comment: Speci men Type: BLOOD SPECIMENOrdering Facility: [facility] Address: [address] [place] [address] Performed By: #### 5 7021-8 ####[facility] LABCLIA [id number] [place] [address] Hematocrit (Bld) [Volume fraction] 35.3 % Low 39.0-51.0 [facility] Comment on above: Order Comment: Speci men Type: BLOOD SPECIMENOrdering Facility: [facility] Address: [address] [place] [address] Performed By: #### 5 7021-8 ####[facility] LABIA [id number] [place] [address] Hemoglobin (Bld) [Mass/Vol] 11.4 g/dL Low 13.0-17.0 [facility] Comment on above: Order Comment: Speci men Type: BLOOD SPECIMENOrdering Facility: [facility] Address: [address] [place] [address] Performed By: #### 5 7021-8 ####[facility] LABCLIA [id number] [place] [address] Immature granulocytes (Bld) [#/Vol] 10*3/uL Normal <0.10 [facility] Comment on above: Order Comment: Speci men Type: BLOOD SPECIMENOrdering Facility: [facility] Address: [address] [place] [address] Performed By: #### 5 7021-8 ####[facility] LABCLIA [id number] [place] [address] Immature granulocytes/100 WBC (Bld) 0.3 % Normal [facility] Comment on above: Order Comment: Speci men Type: BLOOD SPECIMENOrdering Facility: [facility] Address: [address] [place] [address] Performed By: #### 5 7021-8 ####[facility] LABCLIA [id number] [place] [address] Lymphocytes (Bld) [#/Vol] 1.33 10*3/uL Normal 1.00-4.00 [facility] Comment on above: Order Comment: Speci men Type: BLOOD SPECIMENOrdering Facility: [facility] Address: [address] [place] [address] Performed By: #### 5 7021-8 ####[facility] LABCLIA [id number] [place] [address] Lymphocytes/100 WBC (Bld) 34.2 % Normal [facility] Comment on above: Order Comment: Speci men Type: BLOOD SPECIMENOrdering Facility: [facility] Address: [address] [place] [address] Performed By: #### 5 7021-8 ####[facility] LABCLIA [id number] [place] [address] MCH (RBC) [Entitic mass] 33.2 pg Normal 26.0-34.0 [facility] Comment on above: Order Comment: Speci men Type: BLOOD SPECIMENOrdering Facility: [facility] Address: [address] [place] [address] Performed By: #### 5 7021-8 ####[facility] LABCLIA [id number] [place] [address] MCHC (RBC) [Mass/Vol] 32.3 g/dL Normal 30.5-36.0 [facility] Comment on above: Order Comment: Speci men Type: BLOOD SPECIMENOrdering Facility: [facility] Address: [address] [place] [address] Performed By: #### 5 7021-8 ####[facility] LABCLIA [id number] [place] [address] MCV (RBC) [Entitic vol] 102.9 fL High 80.0-100.0 [facility] Comment on above: Order Comment: Speci men Type: BLOOD SPECIMENOrdering Facility: [facility] Address: [address] [place] [address] Performed By: #### 5 7021-8 ####[facility] LABCLIA [id number] [place] [address] Monocytes (Bld) [#/Vol] 0.59 10*3/uL Normal <0.87 [facility] Comment on above: Order Comment: Speci men Type: BLOOD SPECIMENOrdering Facility: [facility] Address: [address] [place] [address] Performed By: #### 5 7021-8 ####[facility] LABCLIA [id number] [place] [address] Monocytes/100 WBC (Bld) 15.2 % Normal [facility] Comment on above: Order Comment: Speci men Type: BLOOD SPECIMENOrdering Facility: [facility] Address: [address] [place] [address] Performed By: #### 5 7021-8 ####[facility] LABCLIA [id number] [place] [address] Neutrophils (Bld) [#/Vol] 1.91 10*3/uL Normal 1.45-7.50 [facility] Comment on above: Order Comment: Speci men Type: BLOOD SPECIMENOrdering Facility: [facility] Address: [address] [place] [address] Performed By: #### 5 7021-8 ####[facility] LABCLIA [id number] [place] [address] Neutrophils/100 WBC (Bld) 49.0 % Normal [facility] Comment on above: Order Comment: Speci men Type: BLOOD SPECIMENOrdering Facility: [facility] Address: [address] [place] [address] Performed By: #### 5 7021-8 ####[facility] LABCLIA [id number] [place] [address] Nucleated RBC (Bld) [#/Vol] 10*3/uL Normal <0.01 [facility] Comment on above: Order Comment: Speci men Type: BLOOD SPECIMENOrdering Facility: [facility] Address: [address] [place] [address] Performed By: #### 5 7021-8 ####[facility] LABCLIA [id number] [place] [address] Nucleated RBC/100 WBC (Bld) [Ratio] 0.0 /100 WBC Normal [facility] Comment on above: Order Comment: Speci men Type: BLOOD SPECIMENOrdering Facility: [facility] Address: [address] [place] [address] Performed By: #### 5 7021-8 ####[facility] LABCLIA [id number] [place] [address] Platelet mean volume (Bld) [Entitic vol] 10.0 fL Normal 9.0-12.7 [facility] Comment on above: Order Comment: Speci men Type: BLOOD SPECIMENOrdering Facility: [facility] Address: [address] [place] [address] Performed By: #### 5 7021-8 ####[facility] LABCLIA [id number] [place] [address] Platelets (Bld) [#/Vol] 255 10*3/uL Normal 150-400 [facility] Comment on above: Order Comment: Speci men Type: BLOOD SPECIMENOrdering Facility: [facility] Address: [address] [place] [address] Performed By: #### 5 7021-8 ####[facility] LABCLIA [id number] [place] [address] RBC (Bld) [#/Vol] 3.43 10*6/uL Low 4.20-6.00 [facility] Comment on above: Order Comment: Speci men Type: BLOOD SPECIMENOrdering Facility: [facility] Address: [address] [place] [address] Performed By: #### 5 7021-8 ####[facility] LABCLIA [id number] [place] [address] WBC (Bld) [#/Vol] 3.89 10*3/uL Normal 3.70-11.00 [facility] Comment on above: Order Comment: Speci men Type: BLOOD SPECIMENOrdering Facility: [facility] Address: [address] [place] [address] Performed By: #### 5 7021-8 ####[facility] LABCLIA [id number] [place] [address] CNOVSPon 09-13-2023 CNOVSP Normal [facility] Cancer Ag19-9 SerPl-aCncon 0 09-13-2023 Cancer Ag 19-9 Qn 967.0 [arb'U]/mL High <36.0 [facility] Comment on above: Order Comment: Speci men Type: BLOOD SPECIMENOrdering Facility: [facility] Address: [address] [place] [address] Result Comment: [facility] er antigen 19-9 test is used as an aid in monitoring response to treatment or recurrence in patients with established pancreatic, hepatobiliary, or gastrointestinal malignancies. Clinical correlation is required.The CA 19-9 Antigen test was performed using the [employer] DXI paramagnetic particle chemiluminescent immunoassay method. Results obtained with different assay methods or kits cannot be used interchangeably. Performed By: #### 2 4108-3 ####[facility] LABCLIA [id number] [address] [place] Comprehensive metabolic 2000 panelOrdered By: Je Elias on 09-13-2023 Albumin [Mass/Vol] 3.8 g/dL Low 3.9 - 4.9 g/dL [facility] ALP [Catalytic activity/Vol] 136 U/L High 38 - 113 U/L [facility] ALT [Catalytic activity/Vol] 18 U/L 10 - 54 U/L [facility] Anion gap [Moles/Vol] 10 mmol/L 9 - 18 mmol/L [facility] AST [Catalytic activity/Vol] 16 U/L 14 - 40 U/L [facility] Bilirubin [Mass/Vol] 0.7 mg/dL 0.2 - 1 .3 mg/dL [facility] Calcium [Mass/Vol] 10.3 mg/dL High 8.5 - 10. 2 mg/dL [facility] Chloride [Moles/Vol] 109 mmol/L High 97 - 10 5 mmol/L [facility] CO2 [Moles/Vol] 24 mmol/L 22 - 30 mmol/L [facility] Creatinine [Mass/Vol] 0.81 mg/dL 0.73 - 1.22 mg/dL [facility] GFR/1.73 sq M.predicted among non-blacks MDRD (S/P/Bld) [Vol rate/Area] 94 mL/min/{1.73_m2} - PINF [facility] Comment on above: Estimated Glomerular Filtration [...] High 74 - 99 mg/dL [facility] Comment on above: The [place] Diab[employer] Association (ADA) provides guidance for [...] Standards of Medical Care in Diabetes 2016, [place] [employer]. Diabetes Care. 2016.39(Suppl 1). Interpretation and review of laboratory results Abnormal [facility] Potassium [Moles/Vol] 4.4 mmol/L 3.7 - 5.1 mmol/L [facility] Protein [Mass/Vol] 6.6 g/dL 6.3 - 8.0 g/dL [facility] Sodium [Moles/Vol] 143 mmol/L 136 - 144 mmol/L [facility] Urea nitrogen [Mass/Vol] 16 mg/dL 9 - 24 mg/dL [facility] Comprehensive metabolic 2000 panelon 09-13-2023 Albumin [Mass/Vol] 3.8 g/dL Low 3.9-4.9 [facility] Comment on above: Order Comment: Speci men Type: BLOOD SPECIMENOrdering Facility: [facility] Address: [address] [place] [address] Performed By: #### 2 4323-8 ####[facility] LABCLIA [id number] [place] [address] ALP [Catalytic activity/Vol] 136 U/L High 38-113 [facility] Comment on above: Order Comment: Speci men Type: BLOOD SPECIMENOrdering Facility: [facility] Address: [address] [place] [address] Performed By: #### 2 4323-8 ####[facility] LABCLIA [id number] [place] [address] ALT [Catalytic activity/Vol] 18 U/L Normal 10-54 [facility] Comment on above: Order Comment: Speci men Type: BLOOD SPECIMENOrdering Facility: [facility] Address: [address] [place] [address] Performed By: #### 2 4323-8 ####[facility] LABCLIA [id number] [place] [address] Anion gap [Moles/Vol] 10 mmol/L Normal 9-18 [facility] Comment on above: Order Comment: Speci men Type: BLOOD SPECIMENOrdering Facility: [facility] Address: [address] [place] [address] Performed By: #### 2 4323-8 ####[facility] LABCLIA [id number] [place] [address] AST [Catalytic activity/Vol] 16 U/L Normal 14-40 [facility] Comment on above: Order Comment: Speci men Type: BLOOD SPECIMENOrdering Facility: [facility] Address: [address] [place] [address] Performed By: #### 2 4323-8 ####[facility] LABCLIA [id number] [place] [address] Bilirubin [Mass/Vol] 0.7 mg/dL Normal 0.2-1.3 [facility] Comment on above: Order Comment: Speci men Type: BLOOD SPECIMENOrdering Facility: [facility] Address: [address] [place] [address] Performed By: #### 2 4323-8 ####[facility] LABCLIA [id number] [place] [address] Calcium [Mass/Vol] 10.3 mg/dL High 8.5-10.2 [facility] Comment on above: Order Comment: Speci men Type: BLOOD SPECIMENOrdering Facility: [facility] Address: [address] [place] [address] Performed By: #### 2 4323-8 ####[facility] LABCLIA [id number] [place] [address] Chloride [Moles/Vol] 109 mmol/L High 97-105 [facility] Comment on above: Order Comment: Speci men Type: BLOOD SPECIMENOrdering Facility: [facility] Address: [address] [place] [address] Performed By: #### 2 4323-8 ####[facility] LABCLIA [id number] [place] [address] CO2 [Moles/Vol] 24 mmol/L Normal 22-30 [facility] Comment on above: Order Comment: Speci men Type: BLOOD SPECIMENOrdering Facility: [facility] Address: [address] [place] [address] Performed By: #### 2 4323-8 ####[facility] LABCLIA [id number] [place] [address] Creatinine [Mass/Vol] 0.81 mg/dL Normal 0.73-1.22 [facility] Comment on above: Order Comment: Speci men Type: BLOOD SPECIMENOrdering Facility: [facility] Address: [address] [place] [address] Performed By: #### 2 4323-8 ####[facility] LABCLIA [id number] [place] [address] Creatinine and Glomerular filtration rate.predicted panel (S/P/Bld) 94 mL/min/1.73m??? Normal >=60 [facility] Comment on above: Order Comment: Speci men Type: BLOOD SPECIMENOrdering Facility: [facility] Address: [address] [place] [address] Result Comment: Kathy mated Glomerular Filtration Rate [...] actual GFR. Performed By: #### 2 4323-8 ####[facility] LABCLIA [id number] [place] [address] Glucose [Mass/Vol] 142 mg/dL High 74-99 [facility] Comment on above: Order Comment: Speci men Type: BLOOD SPECIMENOrdering Facility: [facility] Address: [address] [place] [address] Result Comment: The [place] Diabetes Association (ADA) provides guidance for cutoff [...] Standards of Medical Care in Diabetes 2016, [place] [employer]. Diabetes Care. 2016.39(Suppl 1). Performed By: #### 2 4323-8 ####[facility] LABCLIA [id number] [place] [address] Potassium [Moles/Vol] 4.4 mmol/L Normal 3.7-5.1 [facility] Comment on above: Order Comment: Speci men Type: BLOOD SPECIMENOrdering Facility: [facility] Address: [address] [place] [address] Performed By: #### 2 4323-8 ####[facility] LABCLIA [id number] [place] [address] Protein [Mass/Vol] 6.6 g/dL Normal 6.3-8.0 [facility] Comment on above: Order Comment: Speci men Type: BLOOD SPECIMENOrdering Facility: [facility] Address: [address] [place] [address] Performed By: #### 2 4323-8 ####[facility] LABCLIA [id number] [place] [address] Sodium [Moles/Vol] 143 mmol/L Normal 136-144 [facility] Comment on above: Order Comment: Speci men Type: BLOOD SPECIMENOrdering Facility: [facility] Address: [address] [place] [address] Performed By: #### 2 4323-8 ####[facility] LABCLIA [id number] [place] [address] Urea nitrogen [Mass/Vol] 16 mg/dL Normal 9-24 [facility] Comment on above: Order Comment: Speci men Type: BLOOD SPECIMENOrdering Facility: [facility] Address: [address] [place] [address] [place] [address] Performed By: #### 2 4323-8 ####[facility] LABCLIA [id number] [place] [address] FERRITIN BLDon 09-13-2023 Ferritin [Mass/Vol] 56.8 ng/mL 30.3 - 565.7 ng/mL [facility] Ferritin SerPl-mCncon 2023 Ferritin [Mass/Vol] 56.8 ng/mL Normal 30.3-565.7 [facility] Comment on above: Order Comment: Speci men Type: BLOOD SPECIMENOrdering Facility: [facility] Address: [address] [place] [address] Performed By: #### 5 0190-8, 2275-08, 2132-01 ####[facility] LABCLIA [id number] [place] [id number] [place] Iron and Iron binding capaci ty panelon 09-13-2023 Interpretation and review of laboratory results Normal [facility] Iron [Mass/Vol] 55 ug/dL 41 - 186 ug/dL [facility] Iron binding capacity [Mass/Vol] 335 ug/dL 232 - 386 ug/dL [facility] Iron/TIBC [Molar ratio] 16.4 % 15.0 - 57.0 % [facility] Iron [Mass/Vol] 55 ug/dL Normal 41-186 [facility] Comment on above: Order Comment: Speci men Type: BLOOD SPECIMENOrdering Facility: [facility] Address: [facility] [place] [address] Performed By: #### 5 0190-8, 2275-4, 2132-01 ####[facility] LABCLIA [id number] [facility] [place] [address] [place] Iron binding capacity [Mass/Vol] 335 ug/dL Normal 232-386 [facility] Comment on above: Order Comment: Speci men Type: BLOOD SPECIMENOrdering Facility: [facility] Address: [address] [place], [place] [address] [id number] Performed By: #### 5 0190-8, 2275-08, 2132-01 ####[facility] LABCLIA [id number] [place] [address] [place] Iron/TIBC [Molar ratio] 16.4 % Normal 15.0-57.0 [facility] Comment on above: Order Comment: Speci men Type: BLOOD SPECIMENOrdering Facility: [facility] Address: [address] [place] [address] [place] [address] Performed By: #### 5 0190-8, 2275-08, 2132-01 ####[facility] LABCLIA [id number] [address] [place] No Panel Informationon 09-12 Interpretation and review of laboratory results Normal [facility] VITAMIN B12 BLOODon 09-13-19 24 Cobalamin (Vitamin B12) [Mass/Vol] 720 pg/mL 232 - 1245 pg/mL [facility] Vit B12 SerPl-mCncon 024 Cobalamin (Vitamin B12) [Mass/Vol] 720 pg/mL Normal 232-1245 [facility] Comment on above: Order Comment: Speci men Type: BLOOD SPECIMENOrdering Facility: [facility] Address: [address] [place], [place] [address] Performed By: #### 5 0190-8, 2275-08, 2132-01 ####[facility] LABCLIA [id number] [place] [id number] [place] CBC W Auto Differential pane l (Bld)on 08-23-2023 Basophils (Bld) [#/Vol] <0.11 k/uL [facility] Basophils/100 WBC (Bld) 0.4 % [facility] Differential cell count method Nom (Bld) Auto [facility] Eosinophils (Bld) [#/Vol] 0.04 10*3/uL <0.46 k/uL [facility] Eosinophils/100 WBC (Bld) 0.8 % [facility] Erythrocyte distribution width (RBC) [Ratio] 15.3 % High 11.5 - 15.0 % [facility] Hematocrit (Bld) [Volume fraction] 34.6 % Low 39.0 - 51.0 % [facility] Hemoglobin (Bld) [Mass/Vol] 11.3 g/dL Low 13.0 - 17.0 g/dL [facility] Immature granulocytes (Bld) [#/Vol] <0.10 k/uL [facility] Immature granulocytes/100 WBC (Bld) 0.4 % [facility] Lymphocytes (Bld) [#/Vol] 1.95 10*3/uL 1.00 - 4.00 k/uL [facility] Lymphocytes/100 WBC (Bld) 40.7 % [facility] MCH (RBC) [Entitic mass] 34.1 pg High 26.0 - 34.0 pg [facility] MCHC (RBC) [Mass/Vol] 32.7 g/dL 30.5 - 36.0 g/dL [facility] MCV (RBC) [Entitic vol] 104.5 fL High 80.0 - 100.0 fL [facility] Monocytes (Bld) [#/Vol] 0.72 10*3/uL <0.87 k/uL [facility] Monocytes/100 WBC (Bld) 15.0 % [facility] Neutrophils (Bld) [#/Vol] 2.04 10*3/uL 1.45 - 7.50 k/uL [facility] Neutrophils/100 WBC (Bld) 42.7 % [facility] Nucleated RBC (Bld) [#/Vol] <0.01 k/uL [facility] Nucleated RBC/100 WBC (Bld) [Ratio] 0.0 /100 WBC [facility] Platelet mean volume (Bld) [Entitic vol] 10.0 fL 9.0 - 12.7 fL [facility] Platelets (Bld) [#/Vol] 241 10*3/uL 150 - 400 k/uL [facility] RBC (Bld) [#/Vol] 3.31 10*6/uL Low 4.20 - 6.0 0 m/uL [facility] WBC (Bld) [#/Vol] 4.79 10*3/uL 3.70 - 11.00 k/uL [facility] Basophils (Bld) [#/Vol] 10*3/uL Normal <0.11 [facility] Comment on above: Order Comment: Speci men Type: BLOOD SPECIMENOrdering Facility: [facility] Address: [address] [place] [address] Performed By: #### 5 7021-8 ####[facility] LABCLIA [id number] [place] [address] Basophils/100 WBC (Bld) 0.4 % Normal [facility] Comment on above: Order Comment: Speci men Type: BLOOD SPECIMENOrdering Facility: [facility] Address: [address] [place] [address] Performed By: #### 5 7021-8 ####[facility] LABCLIA [id number] [place] [address] Differential cell count method Nom (Bld) Auto Normal [facility] Comment on above: Order Comment: Speci men Type: BLOOD SPECIMENOrdering Facility: [facility] Address: [address] [place] [address] Performed By: #### 5 7021-8 ####[facility] LABCLIA [id number] [place] [address] Eosinophils (Bld) [#/Vol] 0.04 10*3/uL Normal <0.46 [facility] Comment on above: Order Comment: Speci men Type: BLOOD SPECIMENOrdering Facility: [facility] Address: [address] [place] [address] Performed By: #### 5 7021-8 ####[facility] LABCLIA [id number] [place] [address] Eosinophils/100 WBC (Bld) 0.8 % Normal [facility] Comment on above: Order Comment: Speci men Type: BLOOD SPECIMENOrdering Facility: [facility] [facility] Address: [address] [place] [address] Performed By: #### 5 7021-8 ####[facility] LABCLIA [id number] [place] [address] Erythrocyte distribution width (RBC) [Ratio] 15.3 % High 11.5-15.0 [facility] Comment on above: Order Comment: Speci men Type: BLOOD SPECIMENOrdering Facility: [facility] Address: [address] [place] [address] Performed By: #### 5 7021-8 ####[facility] LABCLIA [id number] [place] [address] Hematocrit (Bld) [Volume fraction] 34.6 % Low 39.0-51.0 [facility] Comment on above: Order Comment: Speci men Type: BLOOD SPECIMENOrdering Facility: [facility] Address: [address] [place] [address] Performed By: #### 5 7021-8 ####[facility] LABCLIA [id number] [place] [address] Hemoglobin (Bld) [Mass/Vol] 11.3 g/dL Low 13.0-17.0 [facility] Comment on above: Order Comment: Speci men Type: BLOOD SPECIMENOrdering Facility: [facility] Address: [address] [place] [address] Performed By: #### 5 7021-8 ####[facility] LABCLIA [id number] [place] [address] Immature granulocytes (Bld) [#/Vol] 10*3/uL Normal <0.10 [facility] Comment on above: Order Comment: Speci men Type: BLOOD SPECIMENOrdering Facility: [facility] Address: [address] [place] [address] Performed By: #### 5 7021-8 ####[facility] LABCLIA [id number] [place] [address] Immature granulocytes/100 WBC (Bld) 0.4 % Normal [facility] Comment on above: Order Comment: Speci men Type: BLOOD SPECIMENOrdering Facility: [facility] Address: [address] [place] [address] Performed By: #### 5 7021-8 ####[facility] LABCLIA [id number] [place] [address] Lymphocytes (Bld) [#/Vol] 1.95 10*3/uL Normal 1.00-4.00 [facility] Comment on above: Order Comment: Speci men Type: BLOOD SPECIMENOrdering Facility: [facility] Address: [address] [place] [address] Performed By: #### 5 7021-8 ####[facility] LABCLIA [id number] [place] [address] Lymphocytes/100 WBC (Bld) 40.7 % Normal [facility] Comment on above: Order Comment: Speci men Type: BLOOD SPECIMENOrdering Facility: [facility] Address: [address] [place] [address] Performed By: #### 5 7021-8 ####[facility] LABCLIA [id number] [place] [address] MCH (RBC) [Entitic mass] 34.1 pg High 26.0-34.0 [facility] Comment on above: Order Comment: Speci men Type: BLOOD SPECIMENOrdering Facility: [facility] Address: [address] [place] [address] Performed By: #### 5 7021-8 ####[facility] LABCLIA [id number] [place] [address] MCHC (RBC) [Mass/Vol] 32.7 g/dL Normal 30.5-36.0 [facility] Comment on above: Order Comment: Speci men Type: BLOOD SPECIMENOrdering Facility: [facility] Address: [address] [place] [address] Performed By: #### 5 7021-8 ####[facility] LABCLIA [id number] [place] [address] MCV (RBC) [Entitic vol] 104.5 fL High 80.0-100.0 [facility] Comment on above: Order Comment: Speci men Type: BLOOD SPECIMENOrdering Facility: [facility] Address: [address] [place] [address] Performed By: #### 5 7021-8 ####[facility] LABCLIA [id number] [place] [address] Monocytes (Bld) [#/Vol] 0.72 10*3/uL Normal <0.87 [facility] Comment on above: Order Comment: Speci men Type: BLOOD SPECIMENOrdering Facility: [facility] Address: [address] [place] [address] Performed By: #### 5 7021-8 ####[facility] LABIA [id number] [place] [address] Monocytes/100 WBC (Bld) 15.0 % Normal [facility] Comment on above: Order Comment: Speci men Type: BLOOD SPECIMENOrdering Facility: [facility] Address: [address] [place] [address] Performed By: #### 5 7021-8 ####[facility] LABCLIA [id number] [place] [address] Neutrophils (Bld) [#/Vol] 2.04 10*3/uL Normal 1.45-7.50 [facility] Comment on above: Order Comment: Speci men Type: BLOOD SPECIMENOrdering Facility: [facility] Address: [address] [place] [address] Performed By: #### 5 7021-8 ####[facility] LABIA [id number] [place] [address] Neutrophils/100 WBC (Bld) 42.7 % Normal [facility] Comment on above: Order Comment: Speci men Type: BLOOD SPECIMENOrdering Facility: [facility] Address: [address] [place] [address] Performed By: #### 5 7021-8 ####[facility] LABCLIA [id number] [place] [address] Nucleated RBC (Bld) [#/Vol] 10*3/uL Normal <0.01 [facility] Comment on above: Order Comment: Speci men Type: BLOOD SPECIMENOrdering Facility: [facility] Address: [address] [place] [address] Performed By: #### 5 7021-8 ####[facility] LABCLIA [id number] [place] [address] Nucleated RBC/100 WBC (Bld) [Ratio] 0.0 /100 WBC Normal [facility] Comment on above: Order Comment: Speci men Type: BLOOD SPECIMENOrdering Facility: [facility] Address: [address] [place] [address] Performed By: #### 5 7021-8 ####[facility] LABCLIA [id number] [place] [address] Platelet mean volume (Bld) [Entitic vol] 10.0 fL Normal 9.0-12.7 [facility] Comment on above: Order Comment: Speci men Type: BLOOD SPECIMENOrdering Facility: [facility] Address: [address] [place] [address] Performed By: #### 5 7021-8 ####[facility] LABCLIA [id number] [place] [address] Platelets (Bld) [#/Vol] 241 10*3/uL Normal 150-400 [facility] Comment on above: Order Comment: Speci men Type: BLOOD SPECIMENOrdering Facility: [facility] Address: [address] [place] [address] Performed By: #### 5 7021-8 ####[facility] LABCLIA [id number] [place] [address] RBC (Bld) [#/Vol] 3.31 10*6/uL Low 4.20-6.00 [facility] Comment on above: Order Comment: Speci men Type: BLOOD SPECIMENOrdering Facility: [facility] Address: [address] [place] [address] Performed By: #### 5 7021-8 ####[facility] LABCLIA [id number] [place] [address] WBC (Bld) [#/Vol] 4.79 10*3/uL Normal 3.70-11.00 [facility] Comment on above: Order Comment: Speci men Type: BLOOD SPECIMENOrdering Facility: [facility] Address: [address] [place] [address] Performed By: #### 5 7021-8 ####[facility] LABCLIA [id number] [place] [address] CNOVSPon 08-23-2023 CNOVSP Normal [facility] Cancer Ag19-9 SerPl-aCncon 0 08-23-2023 Cancer Ag 19-9 Qn 1509.0 [arb'U]/mL High <36.0 [facility] Comment on above: Order Comment: Speci men Type: BLOOD SPECIMENOrdering Facility: [facility] Address: [address] [place] [address] Result Comment: [facility] er antigen 19-9 test is used as an aid in monitoring response to treatment or recurrence in patients with established pancreatic, hepatobiliary, or gastrointestinal malignancies. Clinical correlation is required.The CA 19-9 Antigen test was performed using the [employer] DXI paramagnetic particle chemiluminescent immunoassay method. Results obtained with different assay methods or kits cannot be used interchangeably. Performed By: #### 2 4108-3 ####[facility] LABCLIA [id number] [place] [address] [facility] Comprehensive metabolic 2000 panelon 08-23-2023 Albumin [Mass/Vol] 4.0 g/dL 3.9 - 4.9 g/dL [facility] ALP [Catalytic activity/Vol] 139 U/L High 38 - 113 U/L [facility] ALT [Catalytic activity/Vol] 16 U/L 10 - 54 U/L [facility] Anion gap [Moles/Vol] 9 mmol/L 9 - 18 mmol/L [facility] AST [Catalytic activity/Vol] 16 U/L 14 - 40 U/L [facility] Bilirubin [Mass/Vol] 0.8 mg/dL 0.2 - 1 .3 mg/dL [facility] Calcium [Mass/Vol] 10.7 mg/dL High 8.5 - 10. 2 mg/dL [facility] Chloride [Moles/Vol] 105 mmol/L 97 - 10 5 mmol/L [facility] CO2 [Moles/Vol] 25 mmol/L 22 - 30 mmol/L [facility] Creatinine [Mass/Vol] 0.83 mg/dL 0.73 - 1.22 mg/dL [facility] Estimated Glomerular Filtration Rate 93 mL/min/1.73m >=60 mL/min/1.73 m [facility] Glucose [Mass/Vol] 142 mg/dL High 74 - 99 mg/dL [facility] Potassium [Moles/Vol] 4.1 mmol/L 3.7 - 5.1 mmol/L [facility] Protein [Mass/Vol] 6.9 g/dL 6.3 - 8.0 g/dL [facility] Sodium [Moles/Vol] 139 mmol/L 136 - 144 mmol/L [facility] Urea nitrogen [Mass/Vol] 19 mg/dL 9 - 24 mg/dL [facility] Albumin [Mass/Vol] 4.0 g/dL Normal 3.9-4.9 [facility] Comment on above: Order Comment: Speci men Type: BLOOD SPECIMENOrdering Facility: [facility] Address: [address] [place] [address] Performed By: #### 2 4323-8 ####[facility] LABCLIA [id number] [place] [address] ALP [Catalytic activity/Vol] 139 U/L High 38-113 [facility] Comment on above: Order Comment: Speci men Type: BLOOD SPECIMENOrdering Facility: [facility] Address: [address] [place] [address] Performed By: #### 2 4323-8 ####[facility] LABCLIA [id number] [place] [address] ALT [Catalytic activity/Vol] 16 U/L Normal 10-54 [facility] Comment on above: Order Comment: Speci men Type: BLOOD SPECIMENOrdering Facility: [facility] Address: [address] [place] [address] Performed By: #### 2 4323-8 ####[facility] LABCLIA [id number] [place] [address] Anion gap [Moles/Vol] 9 mmol/L Normal 9-18 [facility] Comment on above: Order Comment: Speci men Type: BLOOD SPECIMENOrdering Facility: [facility] Address: [address] [place], [place] [address] Performed By: #### 2 4323-8 ####[facility] LABCLIA [id number] [place] [address] AST [Catalytic activity/Vol] 16 U/L Normal 14-40 [facility] Comment on above: Order Comment: Speci men Type: BLOOD SPECIMENOrdering Facility: [facility] Address: [address] [place], [place] [address] Performed By: #### 2 4323-8 ####[facility] LABCLIA [id number] [place] [address] Bilirubin [Mass/Vol] 0.8 mg/dL Normal 0.2-1.3 [facility] Comment on above: Order Comment: Speci men Type: BLOOD SPECIMENOrdering Facility: [facility] Address: [address] [place] [address] Performed By: #### 2 4323-8 ####[facility] LABCLIA [id number] [place] [address] Calcium [Mass/Vol] 10.7 mg/dL High 8.5-10.2 [facility] Comment on above: Order Comment: Speci men Type: BLOOD SPECIMENOrdering Facility: [facility] Address: [address] [place] [address] Performed By: #### 2 4323-8 ####[facility] LABCLIA [id number] [place] [address] Chloride [Moles/Vol] 105 mmol/L Normal 97-105 [facility] Comment on above: Order Comment: Speci men Type: BLOOD SPECIMENOrdering Facility: [facility] Address: [address] [place] [address] Performed By: #### 2 4323-8 ####[facility] LABCLIA [id number] [place] [address] CO2 [Moles/Vol] 25 mmol/L Normal 22-30 [facility] Comment on above: Order Comment: Speci men Type: BLOOD SPECIMENOrdering Facility: [facility] Address: [address] [place] [address] Performed By: #### 2 4323-8 ####[facility] LABCLIA [id number] [place] [address] Creatinine [Mass/Vol] 0.83 mg/dL Normal 0.73-1.22 [facility] Comment on above: Order Comment: Speci men Type: BLOOD SPECIMENOrdering Facility: [facility] Address: [address] [place] [address] Performed By: #### 2 4323-8 ####[facility] LABCLIA [id number] [place] [address] Creatinine and Glomerular filtration rate.predicted panel (S/P/Bld) 93 mL/min/1.73m??? Normal >=60 [facility] Comment on above: Order Comment: Speci men Type: BLOOD SPECIMENOrdering Facility: [facility] Address: [address] [place] [address] Result Comment: Kathy mated Glomerular Filtration Rate [...] actual GFR. Performed By: #### 2 4323-8 ####[facility] LABCLIA [id number] [place] [address] Glucose [Mass/Vol] 142 mg/dL High 74-99 [facility] Comment on above: Order Comment: Noemí hoff Type: BLOOD SPECIMENOrdering Facility: [facility] Address: [address] [place] [address] Result Comment: The [place] [employer] (ADA) provides guidance for cutoff [...] Standards of Medical Care in Diabetes 2016, [place] [employer]. Diabetes Care. 2016.39(Suppl 1). Performed By: #### 2 4323-8 ####[facility] LABCLIA [id number] [place] [address] Potassium [Moles/Vol] 4.1 mmol/L Normal 3.7-5.1 [facility] Comment on above: Order Comment: Noemí hoff Type: BLOOD SPECIMENOrdering Facility: [facility] Address: [address] [place] [address] Performed By: #### 2 4323-8 ####[facility] LABCLIA [id number] [place] [address] Protein [Mass/Vol] 6.9 g/dL Normal 6.3-8.0 [facility] Comment on above: Order Comment: Noemí men Type: BLOOD SPECIMENOrdering Facility: [facility] Address: [address] [place] [address] Performed By: #### 2 4323-8 ####[facility] LABCLIA [id number] [place] [address] Sodium [Moles/Vol] 139 mmol/L Normal 136-144 [facility] Comment on above: Order Comment: Speci men Type: BLOOD SPECIMENOrdering Facility: [facility] Address: [address] [place], [place] [address] Performed By: #### 2 4323-8 ####[facility] LABCLIA [id number] [place] [address] Urea nitrogen [Mass/Vol] 19 mg/dL Normal 9-24 [facility] Comment on above: Order Comment: Speci men Type: BLOOD SPECIMENOrdering Facility: [facility] Address: [address] [place] [address] Performed By: #### 2 4323-8 ####[facility] LABCLIA [id number] [place] [address] CNPNon 08-18-2023 CNPN Normal [facility] CT ABD/PEL W IVCONon 024 CT ABD/PEL W IVCON Normal [facility] CT Abdomen and Pelvis W cont [...] any questions regarding this interpretation, please call [phone]. If you are unable to reach us at the number above, please feel free to contact [facility] at [phone]. DIVISION OF RADIOLOGY * * *Final Report* * * DATE OF EXAM: Aug 18 2023 10:27AM [facility] 0530 - CT ABD/PEL W IVCON / [...] chest CT performed will be reported separately. Disposal Worker (topogram) images: No additional findings. DIVISION OF RADIOLOGY Provider, [facility] - 08/18/2023 * * *Final Report* * * DATE OF EXAM: Aug 18 2023 10:27AM [facility] 0530 - CT ABD/PEL W IVCON / [...] chest CT performed will be reported separately. Disposal Worker (topogram) images: No additional findings. IMPRESSION [...] any questions regarding this interpretation, please call [phone]. If you are unable to reach us at the number above, please feel free to contact [facility]iology at [phone]. [facility] CT CHEST W IVCONon CT CHEST W IVCON Normal [facility] CT Chest W contrast [place] IMPRESSION: [...] any questions regarding this interpretation, please call [phone]. If you are unable to reach us at the number above, please feel free to contact [facility] at [phone]. DIVISION OF RADIOLOGY * * *Final Report* * * DATE OF EXAM: Aug 18 2023 10:27AM [facility] 0539 - CT CHEST W IVCON / [...] was performed and will be reported separately. Disposal Worker (topogram) images: No additional findings. DIVISION OF RADIOLOGY Provider, [facility] - 08/18/2023 * * *Final Report* * * DATE OF EXAM: Aug 18 2023 10:27AM [facility] 0539 - CT CHEST W IVCON / [...] was performed and will be reported separately. Disposal Worker (topogram) images: No additional findings. IMPRESSION [...] any questions regarding this interpretation, please call [phone]. If you are unable to reach us at the number above, please feel free to contact [facility] at [phone]. [facility] CT Chest W contrast IVOrdere d By: [facility] Provider on 08-18-2023 [facility] No Panel Informationon 08-17 Radiology Study observation (narrative) [facility] CNPNon 08-09-2023 CNPN Normal [facility] CBC W Auto Differential pane l (Bld)on 08-02-2023 Basophils (Bld) [#/Vol] <0.11 k/uL [facility] Basophils/100 WBC (Bld) 0.4 % [facility] Differential cell count method Nom (Bld) Auto [facility] Eosinophils (Bld) [#/Vol] 0.07 10*3/uL <0.46 k/uL [facility] Eosinophils/100 WBC (Bld) 1.3 % [facility] Erythrocyte distribution width (RBC) [Ratio] 17.4 % High 11.5 - 15.0 % [facility] Hematocrit (Bld) [Volume fraction] 31.6 % Low 39.0 - 51.0 % [facility] Hemoglobin (Bld) [Mass/Vol] 10.3 g/dL Low 13.0 - 17.0 g/dL [facility] Immature granulocytes (Bld) [#/Vol] <0.10 k/uL [facility] Immature granulocytes/100 WBC (Bld) 0.4 % [facility] Lymphocytes (Bld) [#/Vol] 1.29 10*3/uL 1.00 - 4.00 k/uL [facility] Lymphocytes/100 WBC (Bld) 24.0 % [facility] MCH (RBC) [Entitic mass] 34.0 pg 26.0 - 34.0 pg [facility] MCHC (RBC) [Mass/Vol] 32.6 g/dL 30.5 - 36.0 g/dL [facility] MCV (RBC) [Entitic vol] 104.3 fL High 80.0 - 100.0 fL [facility] Monocytes (Bld) [#/Vol] 0.48 10*3/uL <0.87 k/uL [facility] Monocytes/100 WBC (Bld) 8.9 % [facility] Neutrophils (Bld) [#/Vol] 3.50 10*3/uL 1.45 - 7.50 k/uL [facility] Neutrophils/100 WBC (Bld) 65.0 % [facility] Nucleated RBC (Bld) [#/Vol] <0.01 k/uL [facility] Nucleated RBC/100 WBC (Bld) [Ratio] 0.0 /100 WBC [facility] Platelet mean volume (Bld) [Entitic vol] 9.2 fL 9.0 - 12.7 fL [facility] Platelets (Bld) [#/Vol] 224 10*3/uL 150 - 400 k/uL [facility] RBC (Bld) [#/Vol] 3.03 10*6/uL Low 4.20 - 6.0 0 m/uL [facility] WBC (Bld) [#/Vol] 5.38 10*3/uL 3.70 - 11.00 k/uL [facility] Basophils (Bld) [#/Vol] 10*3/uL Normal <0.11 [facility] Comment on above: Order Comment: Speci men Type: BLOOD SPECIMENOrdering Facility: [facility] Address: [address] [place] [address] Performed By: #### 5 7021-8 ####[facility] LABCLIA [id number] [place] [address] Basophils/100 WBC (Bld) 0.4 % Normal [facility] Comment on above: Order Comment: Speci men Type: BLOOD SPECIMENOrdering Facility: [facility] Address: [address] [place] [address] Performed By: #### 5 7021-8 ####[facility] LABCLIA [id number] [place] [address] Differential cell count method Nom (Bld) Auto Normal [facility] Comment on above: Order Comment: Speci men Type: BLOOD SPECIMENOrdering Facility: [facility] Address: [address] [place] [address] Performed By: #### 5 7021-8 ####[facility] LABCLIA [id number] [place] [address] Eosinophils (Bld) [#/Vol] 0.07 10*3/uL Normal <0.46 [facility] Comment on above: Order Comment: Speci men Type: BLOOD SPECIMENOrdering Facility: [facility] Address: [address] [place] [address] Performed By: #### 5 7021-8 ####[facility] LABCLIA [id number] [place] [address] Eosinophils/100 WBC (Bld) 1.3 % Normal [facility] Comment on above: Order Comment: Speci men Type: BLOOD SPECIMENOrdering Facility: [facility] Address: [address] [place] [address] Performed By: #### 5 7021-8 ####[facility] LABCLIA [id number] [place] [address] Erythrocyte distribution width (RBC) [Ratio] 17.4 % High 11.5-15.0 [facility] Comment on above: Order Comment: Speci men Type: BLOOD SPECIMENOrdering Facility: [facility] Address: [address] [place] [address] Performed By: #### 5 7021-8 ####[facility] LABIA [id number] [place] [address] Hematocrit (Bld) [Volume fraction] 31.6 % Low 39.0-51.0 [facility] Comment on above: Order Comment: Speci men Type: BLOOD SPECIMENOrdering Facility: [facility] Address: [address] [place] [address] Performed By: #### 5 7021-8 ####[facility] LABCLIA [id number] [place] [address] Hemoglobin (Bld) [Mass/Vol] 10.3 g/dL Low 13.0-17.0 [facility] Comment on above: Order Comment: Speci men Type: BLOOD SPECIMENOrdering Facility: [facility] Address: [address] [place] [address] Performed By: #### 5 7021-8 ####[facility] LABCLIA [id number] [place] [address] Immature granulocytes (Bld) [#/Vol] 10*3/uL Normal <0.10 [facility] Comment on above: Order Comment: Speci men Type: BLOOD SPECIMENOrdering Facility: [facility] Address: [address] [place] [address] Performed By: #### 5 7021-8 ####[facility] LABCLIA [id number] [place] [address] Immature granulocytes/100 WBC (Bld) 0.4 % Normal [facility] Comment on above: Order Comment: Speci men Type: BLOOD SPECIMENOrdering Facility: [facility] Address: [address] [place] [address] Performed By: #### 5 7021-8 ####[facility] LABCLIA [id number] [place] [address] Lymphocytes (Bld) [#/Vol] 1.29 10*3/uL Normal 1.00-4.00 [facility] Comment on above: Order Comment: Speci men Type: BLOOD SPECIMENOrdering Facility: [facility] Address: [address] [place] [address] Performed By: #### 5 7021-8 ####[facility] LABCLIA [id number] [place] [address] Lymphocytes/100 WBC (Bld) 24.0 % Normal [facility] Comment on above: Order Comment: Speci men Type: BLOOD SPECIMENOrdering Facility: [facility] Address: [address] [place] [address] Performed By: #### 5 7021-8 ####[facility] LABCLIA [id number] [place] [address] MCH (RBC) [Entitic mass] 34.0 pg Normal 26.0-34.0 [facility] [facility] Comment on above: Order Comment: Speci men Type: BLOOD SPECIMENOrdering Facility: [facility] Address: [address] [place] [address] Performed By: #### 5 7021-8 ####[facility] LABIA [id number] [place] [address] MCHC (RBC) [Mass/Vol] 32.6 g/dL Normal 30.5-36.0 [facility] Comment on above: Order Comment: Speci men Type: BLOOD SPECIMENOrdering Facility: [facility] Address: [address] [place] [address] Performed By: #### 5 7021-8 ####[facility] LABIA [id number] [place] [address] MCV (RBC) [Entitic vol] 104.3 fL High 80.0-100.0 [facility] Comment on above: Order Comment: Speci men Type: BLOOD SPECIMENOrdering Facility: [facility] Address: [address] [place] [address] Performed By: #### 5 7021-8 ####[facility] LABIA [id number] [place] [address] Monocytes (Bld) [#/Vol] 0.48 10*3/uL Normal <0.87 [facility] Comment on above: Order Comment: Speci men Type: BLOOD SPECIMENOrdering Facility: [facility] Address: [address] [place] [address] Performed By: #### 5 7021-8 ####[facility] LABCLIA [id number] [place] [address] Monocytes/100 WBC (Bld) 8.9 % Normal [facility] Comment on above: Order Comment: Speci men Type: BLOOD SPECIMENOrdering Facility: [facility] Address: [address] [place] [address] Performed By: #### 5 7021-8 ####[facility] LABCLIA [id number] [place] [address] Neutrophils (Bld) [#/Vol] 3.50 10*3/uL Normal 1.45-7.50 [facility] Comment on above: Order Comment: Speci men Type: BLOOD SPECIMENOrdering Facility: [facility] Address: [address] [place] [address] Performed By: #### 5 7021-8 ####[facility] LABCLIA [id number] [place] [address] Neutrophils/100 WBC (Bld) 65.0 % Normal [facility] Comment on above: Order Comment: Speci men Type: BLOOD SPECIMENOrdering Facility: [facility] Address: [address] [place] [address] Performed By: #### 5 7021-8 ####[facility] LABCLIA [id number] [place] [address] Nucleated RBC (Bld) [#/Vol] 10*3/uL Normal <0.01 [facility] Comment on above: Order Comment: Speci men Type: BLOOD SPECIMENOrdering Facility: [facility] Address: [address] [place] [address] Performed By: #### 5 7021-8 ####[facility] LABCLIA [id number] [place] [address] Nucleated RBC/100 WBC (Bld) [Ratio] 0.0 /100 WBC Normal [facility] Comment on above: Order Comment: Speci men Type: BLOOD SPECIMENOrdering Facility: [facility] Address: [address] [place] [address] Performed By: #### 5 7021-8 ####[facility] LABCLIA [id number] [place] [address] Platelet mean volume (Bld) [Entitic vol] 9.2 fL Normal 9.0-12.7 [facility] Comment on above: Order Comment: Speci men Type: BLOOD SPECIMENOrdering Facility: [facility] Address: [address] [place] [address] Performed By: #### 5 7021-8 ####[facility] LABCLIA [id number] [place] [address] Platelets (Bld) [#/Vol] 224 10*3/uL Normal 150-400 [facility] Comment on above: Order Comment: Speci men Type: BLOOD SPECIMENOrdering Facility: [facility] Address: [address] [place] [address] Performed By: #### 5 7021-8 ####[facility] LABCLIA [id number] [place] [address] RBC (Bld) [#/Vol] 3.03 10*6/uL Low 4.20-6.00 [facility] Comment on above: Order Comment: Speci men Type: BLOOD SPECIMENOrdering Facility: [facility] Address: [address] [place] [address] Performed By: #### 5 7021-8 ####[facility] LABCLIA [id number] [place] [address] WBC (Bld) [#/Vol] 5.38 10*3/uL Normal 3.70-11.00 [facility] Comment on above: Order Comment: Speci men Type: BLOOD SPECIMENOrdering Facility: [facility] Address: [address] [place] [address] Performed By: #### 5 7021-8 ####[facility] LABCLIA [id number] [place] [address] CNOVSPon 08-02-2023 CNOVSP Normal [facility] Cancer Ag19-9 SerPl-aCncon 0 08-02-2023 Cancer Ag 19-9 Qn 1844.0 [arb'U]/mL High <36.0 [facility] Comment on above: Order Comment: Speci men Type: BLOOD SPECIMENOrdering Facility: [facility] Address: [address] [place] [address] Result Comment: [facility] er antigen 19-9 test is used as an aid in monitoring response to treatment or recurrence in patients with established pancreatic, hepatobiliary, or gastrointestinal malignancies. Clinical correlation is required.The CA 19-9 Antigen test was performed using the [facility] DXI paramagnetic particle chemiluminescent immunoassay method. Results obtained with different assay methods or kits cannot be used interchangeably. Performed By: #### 2 4108-3 ####[facility] LABCLIA [id number] [place] [address] [place] Comprehensive metabolic 2000 panelon 08-02-2023 Albumin [Mass/Vol] 3.9 g/dL 3.9 - 4.9 g/dL [facility] ALP [Catalytic activity/Vol] 137 U/L High 38 - 113 U/L [facility] ALT [Catalytic activity/Vol] 12 U/L 10 - 54 U/L [facility] Anion gap [Moles/Vol] 10 mmol/L 9 - 18 mmol/L [facility] AST [Catalytic activity/Vol] 13 U/L Low 14 - 40 U/L [facility] Bilirubin [Mass/Vol] 1.0 mg/dL 0.2 - 1 .3 mg/dL [facility] Calcium [Mass/Vol] 10.4 mg/dL High 8.5 - 10. 2 mg/dL [facility] Chloride [Moles/Vol] 105 mmol/L 97 - 10 5 mmol/L [facility] CO2 [Moles/Vol] 24 mmol/L 22 - 30 mmol/L [facility] Creatinine [Mass/Vol] 0.86 mg/dL 0.73 - 1.22 mg/dL [facility] Estimated Glomerular Filtration Rate 92 mL/min/1.73m >=60 mL/min/1.73 m [facility] Glucose [Mass/Vol] 149 mg/dL High 74 - 99 mg/dL [facility] Potassium [Moles/Vol] 4.0 mmol/L 3.7 - 5.1 mmol/L [facility] Protein [Mass/Vol] 6.5 g/dL 6.3 - 8.0 g/dL [facility] Sodium [Moles/Vol] 139 mmol/L 136 - 144 mmol/L [facility] Urea nitrogen [Mass/Vol] 20 mg/dL 9 - 24 mg/dL [facility] Albumin [Mass/Vol] 3.9 g/dL Normal 3.9-4.9 [facility] Comment on above: Order Comment: Speci men Type: BLOOD SPECIMENOrdering Facility: [facility] Address: [address] [place] [address] Performed By: #### 2 4323-8 ####[facility] LABCLIA [id number] [place] [address] ALP [Catalytic activity/Vol] 137 U/L High 38-113 [facility] Comment on above: Order Comment: Speci men Type: BLOOD SPECIMENOrdering Facility: [facility] Address: [address] [place] [address] Performed By: #### 2 4323-8 ####[facility] LABCLIA [id number] [place] [address] ALT [Catalytic activity/Vol] 12 U/L Normal 10-54 [facility] Comment on above: Order Comment: Speci men Type: BLOOD SPECIMENOrdering Facility: [facility] Address: [address] [place] [address] Performed By: #### 2 4323-8 ####[facility] LABIA [id number] [place] [address] Anion gap [Moles/Vol] 10 mmol/L Normal 9-18 [facility] Comment on above: Order Comment: Speci men Type: BLOOD SPECIMENOrdering Facility: [facility] Address: [address] [place] [address] Performed By: #### 2 4323-8 ####[facility] LABCLIA [id number] [place] [address] AST [Catalytic activity/Vol] 13 U/L Low 14-40 [facility] Comment on above: Order Comment: Speci men Type: BLOOD SPECIMENOrdering Facility: [facility] Address: [address] [place] [address] Performed By: #### 2 4323-8 ####[facility] LABCLIA [id number] [place] [address] Bilirubin [Mass/Vol] 1.0 mg/dL Normal 0.2-1.3 [facility] Comment on above: Order Comment: Speci men Type: BLOOD SPECIMENOrdering Facility: [facility] Address: [address] [place] [address] Performed By: #### 2 4323-8 ####[facility] LABCLIA [id number] [place] [address] Calcium [Mass/Vol] 10.4 mg/dL High 8.5-10.2 [facility] Comment on above: Order Comment: Speci men Type: BLOOD SPECIMENOrdering Facility: [facility] Address: [address] [place] [address] Performed By: #### 2 4323-8 ####[facility] LABCLIA [id number] [place] [address] Chloride [Moles/Vol] 105 mmol/L Normal 97-105 [facility] Comment on above: Order Comment: Speci men Type: BLOOD SPECIMENOrdering Facility: [facility] Address: [address] [place], [place] [address] Performed By: #### 2 4323-8 ####[facility] LABCLIA [id number] [place] [address] CO2 [Moles/Vol] 24 mmol/L Normal 22-30 [facility] Comment on above: Order Comment: Speci men Type: BLOOD SPECIMENOrdering Facility: [facility] Address: [address] [place] [address] Performed By: #### 2 4323-8 ####[facility] LABCLIA [id number] [place] [address] Creatinine [Mass/Vol] 0.86 mg/dL Normal 0.73-1.22 [facility] Comment on above: Order Comment: Speci men Type: BLOOD SPECIMENOrdering Facility: [facility] Address: [address] [place] [address] Performed By: #### 2 4323-8 ####[facility] LABCLIA [id number] [place] [address] Creatinine and Glomerular filtration rate.predicted panel (S/P/Bld) 92 mL/min/1.73m??? Normal >=60 [facility] Comment on above: Order Comment: Rajanii men Type: BLOOD SPECIMENOrdering Facility: [facility] Address: [address] [place] [address] Result Comment: Kathy mated Glomerular Filtration Rate [...] actual GFR. Performed By: #### 2 4323-8 ####[facility] LABCLIA [id number] [place] [address] Glucose [Mass/Vol] 149 mg/dL High 74-99 [facility] Comment on above: Order Comment: Noemí hoff Type: BLOOD SPECIMENOrdering Facility: [facility] Address: [address] [place], [place] [address] Result Comment: The [place] [employer] (ADA) provides guidance for cutoff [...] Standards of Medical Care in Diabetes 2016, [place] [employer]. Diabetes Care. 2016.39(Suppl 1). Performed By: #### 2 4323-8 ####[facility] LABCLIA [id number] [place] [address] Potassium [Moles/Vol] 4.0 mmol/L Normal 3.7-5.1 [facility] Comment on above: Order Comment: Speci men Type: BLOOD SPECIMENOrdering Facility: [facility] Address: [address] [place] [address] Performed By: #### 2 4323-8 ####[facility] LABCLIA [id number] [place] [address] Protein [Mass/Vol] 6.5 g/dL Normal 6.3-8.0 [facility] Comment on above: Order Comment: Speci men Type: BLOOD SPECIMENOrdering Facility: [facility] Address: [address] [place] [address] Performed By: #### 2 4323-8 ####[facility] LABCLIA [id number] [place] [address] Sodium [Moles/Vol] 139 mmol/L Normal 136-144 [facility] Comment on above: Order Comment: Speci men Type: BLOOD SPECIMENOrdering Facility: [facility] Address: [address] [place] [address] Performed By: #### 2 4323-8 ####[facility] LABCLIA [id number] [place] [address] Urea nitrogen [Mass/Vol] 20 mg/dL Normal 9-24 [facility] Comment on above: Order Comment: Speci men Type: BLOOD SPECIMENOrdering Facility: [facility] Address: [address] [place] [address] Performed By: #### 2 4323-8 ####[facility] LABCLIA [id number] [place] [address] CBC W Auto Differential pane l (Bld)on 07-19-2023 Basophils (Bld) [#/Vol] 0.04 10*3/uL <0.11 k/uL [facility] Basophils/100 WBC (Bld) 0.7 % [facility] Differential cell count method Nom (Bld) Auto [facility] Eosinophils (Bld) [#/Vol] 0.09 10*3/uL <0.46 k/uL [facility] Eosinophils/100 WBC (Bld) 1.5 % [facility] Erythrocyte distribution width (RBC) [Ratio] 17.9 % High 11.5 - 15.0 % [facility] Hematocrit (Bld) [Volume fraction] 32.0 % Low 39.0 - 51.0 % [facility] Hemoglobin (Bld) [Mass/Vol] 10.5 g/dL Low 13.0 - 17.0 g/dL [facility] Immature granulocytes (Bld) [#/Vol] 0.03 10*3/uL <0.10 k/uL [facility] Immature granulocytes/100 WBC (Bld) 0.5 % [facility] Lymphocytes (Bld) [#/Vol] 1.44 10*3/uL 1.00 - 4.00 k/uL [facility] Lymphocytes/100 WBC (Bld) 24.2 % [facility] MCH (RBC) [Entitic mass] 33.9 pg 26.0 - 34.0 pg [facility] MCHC (RBC) [Mass/Vol] 32.8 g/dL 30.5 - 36.0 g/dL [facility] MCV (RBC) [Entitic vol] 103.2 fL High 80.0 - 100.0 fL [facility] Monocytes (Bld) [#/Vol] 0.46 10*3/uL <0.87 k/uL [facility] Monocytes/100 WBC (Bld) 7.7 % [facility] Neutrophils (Bld) [#/Vol] 3.90 10*3/uL 1.45 - 7.50 k/uL [facility] Neutrophils/100 WBC (Bld) 65.4 % [facility] Nucleated RBC (Bld) [#/Vol] <0.01 k/uL [facility] Nucleated RBC/100 WBC (Bld) [Ratio] 0.0 /100 WBC [facility] Platelet mean volume (Bld) [Entitic vol] 9.5 fL 9.0 - 12.7 fL [facility] Platelets (Bld) [#/Vol] 231 10*3/uL 150 - 400 k/uL [facility] RBC (Bld) [#/Vol] 3.10 10*6/uL Low 4.20 - 6.0 0 m/uL [facility] WBC (Bld) [#/Vol] 5.96 10*3/uL 3.70 - 11.00 k/uL [facility] Basophils (Bld) [#/Vol] 0.04 10*3/uL Normal <0.11 [facility] Comment on above: Order Comment: Speci men Type: BLOOD SPECIMENOrdering Facility: [facility] Address: [address] [place] [address] Performed By: #### 5 7021-8 ####[facility] LABCLIA [id number] [place] [address] Basophils/100 WBC (Bld) 0.7 % Normal [facility] Comment on above: Order Comment: Speci men Type: BLOOD SPECIMENOrdering Facility: [facility] Address: [address] [place] [address] Performed By: #### 5 7021-8 ####[facility] LABCLIA [id number] [place] [address] Differential cell count method Nom (Bld) Auto Normal [facility] Comment on above: Order Comment: Speci men Type: BLOOD SPECIMENOrdering Facility: [facility] Address: [address] [place] [address] Performed By: #### 5 7021-8 ####[facility] LABCLIA [id number] [place] [address] Eosinophils (Bld) [#/Vol] 0.09 10*3/uL Normal <0.46 [facility] Comment on above: Order Comment: Speci men Type: BLOOD SPECIMENOrdering Facility: [facility] Address: [address] [place] [address] Performed By: #### 5 7021-8 ####[facility] LABCLIA [id number] [place] [address] Eosinophils/100 WBC (Bld) 1.5 % Normal [facility] Comment on above: Order Comment: Speci men Type: BLOOD SPECIMENOrdering Facility: [facility] Address: [address] [place] [address] Performed By: #### 5 7021-8 ####[facility] LABCLIA [id number] [place] [address] Erythrocyte distribution width (RBC) [Ratio] 17.9 % High 11.5-15.0 [facility] Comment on above: Order Comment: Speci men Type: BLOOD SPECIMENOrdering Facility: [facility] Address: [address] [place] [address] Performed By: #### 5 7021-8 ####[facility] LABCLIA [id number] [place] [address] Hematocrit (Bld) [Volume fraction] 32.0 % Low 39.0-51.0 [facility] Comment on above: Order Comment: Speci men Type: BLOOD SPECIMENOrdering Facility: [facility] Address: [address] [place] [address] Performed By: #### 5 7021-8 ####[facility] LABCLIA [id number] [place] [address] Hemoglobin (Bld) [Mass/Vol] 10.5 g/dL Low 13.0-17.0 [facility] Comment on above: Order Comment: Speci men Type: BLOOD SPECIMENOrdering Facility: [facility] Address: [address] [place] [address] Performed By: #### 5 7021-8 ####[facility] LABCLIA [id number] [place] [address] Immature granulocytes (Bld) [#/Vol] 0.03 10*3/uL Normal <0.10 [facility] Comment on above: Order Comment: Speci men Type: BLOOD SPECIMENOrdering Facility: [facility] Address: [address] [place] [address] Performed By: #### 5 7021-8 ####[facility] LABCLIA [id number] [place] [address] Immature granulocytes/100 WBC (Bld) 0.5 % Normal [facility] Comment on above: Order Comment: Speci men Type: BLOOD SPECIMENOrdering Facility: [facility] Address: [address] [place] [address] Performed By: #### 5 7021-8 ####[facility] LABCLIA [id number] [place] [address] Lymphocytes (Bld) [#/Vol] 1.44 10*3/uL Normal 1.00-4.00 [facility] Comment on above: Order Comment: Speci men Type: BLOOD SPECIMENOrdering Facility: [facility] Address: [address] [place] [address] Performed By: #### 5 7021-8 ####[facility] LABCLIA [id number] [place] [address] Lymphocytes/100 WBC (Bld) 24.2 % Normal [facility] Comment on above: Order Comment: Speci men Type: BLOOD SPECIMENOrdering Facility: [facility] Address: [address] [place] [address] Performed By: #### 5 7021-8 ####[facility] LABCLIA [id number] [place] [address] MCH (RBC) [Entitic mass] 33.9 pg Normal 26.0-34.0 [facility] Comment on above: Order Comment: Speci men Type: BLOOD SPECIMENOrdering Facility: [facility] Address: [address] [place] [address] Performed By: #### 5 7021-8 ####[facility] LABCLIA [id number] [place] [address] MCHC (RBC) [Mass/Vol] 32.8 g/dL Normal 30.5-36.0 [facility] Comment on above: Order Comment: Speci men Type: BLOOD SPECIMENOrdering Facility: [facility] Address: [address] [place] [address] Performed By: #### 5 7021-8 ####[facility] LABCLIA [id number] [place] [address] MCV (RBC) [Entitic vol] 103.2 fL High 80.0-100.0 [facility] Comment on above: Order Comment: Speci men Type: BLOOD SPECIMENOrdering Facility: [facility] Address: [address] [place] [address] Performed By: #### 5 7021-8 ####[facility] LABCLIA [id number] [place] [address] Monocytes (Bld) [#/Vol] 0.46 10*3/uL Normal <0.87 [facility] Comment on above: Order Comment: Speci men Type: BLOOD SPECIMENOrdering Facility: [facility] Address: [address] [place] [address] Performed By: #### 5 7021-8 ####[facility] LABCLIA [id number] [place] [address] Monocytes/100 WBC (Bld) 7.7 % Normal [facility] Comment on above: Order Comment: Speci men Type: BLOOD SPECIMENOrdering Facility: [facility] Address: [address] [place] [address] Performed By: #### 5 7021-8 ####[facility] LABCLIA [id number] [place] [address] Neutrophils (Bld) [#/Vol] 3.90 10*3/uL Normal 1.45-7.50 [facility] Comment on above: Order Comment: Speci men Type: BLOOD SPECIMENOrdering Facility: [facility] Address: [address] [place] [address] Performed By: #### 5 7021-8 ####[facility] LABCLIA [id number] [place] [address] Neutrophils/100 WBC (Bld) 65.4 % Normal [facility] Comment on above: Order Comment: Speci men Type: BLOOD SPECIMENOrdering Facility: [facility] Address: [address] [place] [address] Performed By: #### 5 7021-8 ####[facility] LABCLIA [id number] [place] [address] Nucleated RBC (Bld) [#/Vol] 10*3/uL Normal <0.01 [facility] Comment on above: Order Comment: Speci men Type: BLOOD SPECIMENOrdering Facility: [facility] Address: [address] [place] [address] Performed By: #### 5 7021-8 ####[facility] LABCLIA [id number] [place] [address] Nucleated RBC/100 WBC (Bld) [Ratio] 0.0 /100 WBC Normal [facility] Comment on above: Order Comment: Speci men Type: BLOOD SPECIMENOrdering Facility: [facility] Address: [address] [place] [address] Performed By: #### 5 7021-8 ####[facility] LABCLIA [id number] [place] [address] Platelet mean volume (Bld) [Entitic vol] 9.5 fL Normal 9.0-12.7 [facility] Comment on above: Order Comment: Speci men Type: BLOOD SPECIMENOrdering Facility: [facility] Address: [address] [place], [place] [address] Performed By: #### 5 7021-8 ####[facility] LABCLIA [id number] [place] [address] Platelets (Bld) [#/Vol] 231 10*3/uL Normal 150-400 [facility] Comment on above: Order Comment: Speci men Type: BLOOD SPECIMENOrdering Facility: [facility] Address: [address] [place] [address] Performed By: #### 5 7021-8 ####[facility] LABCLIA [id number] [place] [address] RBC (Bld) [#/Vol] 3.10 10*6/uL Low 4.20-6.00 [facility] Comment on above: Order Comment: Speci men Type: BLOOD SPECIMENOrdering Facility: [facility] Address: [address] [place] [address] Performed By: #### 5 7021-8 ####[facility] LABIA [id number] [place] [address] WBC (Bld) [#/Vol] 5.96 10*3/uL Normal 3.70-11.00 [facility] Comment on above: Order Comment: Speci men Type: BLOOD SPECIMENOrdering Facility: [facility] Address: [address] [place] [address] Performed By: #### 5 7021-8 ####[facility] LABIA [id number] [place] [address] CNCNPATEDon 07-19-2023 CNCNPATED Normal [facility] CNOVSPon 07-19-2023 CNOVSP Normal [facility] Comprehensive metabolic 2000 panelon 07-19-2023 Albumin [Mass/Vol] 3.8 g/dL Low 3.9 - 4.9 g/dL [facility] ALP [Catalytic activity/Vol] 136 U/L High 38 - 113 U/L [facility] ALT [Catalytic activity/Vol] 29 U/L 10 - 54 U/L [facility] Anion gap [Moles/Vol] 11 mmol/L 9 - 18 mmol/L [facility] AST [Catalytic activity/Vol] 24 U/L 14 - 40 U/L [facility] Bilirubin [Mass/Vol] 1.2 mg/dL 0.2 - 1 .3 mg/dL [facility] Calcium [Mass/Vol] 10.7 mg/dL High 8.5 - 10. 2 mg/dL [facility] Chloride [Moles/Vol] 106 mmol/L High 97 - 10 5 mmol/L [facility] CO2 [Moles/Vol] 22 mmol/L 22 - 30 mmol/L [facility] Creatinine [Mass/Vol] 0.83 mg/dL 0.73 - 1.22 mg/dL [facility] Estimated Glomerular Filtration Rate 93 mL/min/1.73m >=60 mL/min/1.73 m [facility] Glucose [Mass/Vol] 152 mg/dL High 74 - 99 mg/dL [facility] Potassium [Moles/Vol] 3.7 mmol/L 3.7 - 5.1 mmol/L [facility] Protein [Mass/Vol] 6.3 g/dL 6.3 - 8.0 g/dL [facility] Sodium [Moles/Vol] 139 mmol/L 136 - 144 mmol/L [facility] Urea nitrogen [Mass/Vol] 14 mg/dL 9 - 24 mg/dL [facility] Albumin [Mass/Vol] 3.8 g/dL Low 3.9-4.9 [facility] Comment on above: Order Comment: Speci men Type: BLOOD SPECIMENOrdering Facility: [facility] Address: [address] [place] [address] Performed By: #### 2 4323-8 ####[facility] LABCLIA [id number] [place] [address] ALP [Catalytic activity/Vol] 136 U/L High 38-113 [facility] Comment on above: Order Comment: Speci men Type: BLOOD SPECIMENOrdering Facility: [facility] Address: [address] [place] [address] Performed By: #### 2 4323-8 ####[facility] LABCLIA [id number] [place] [address] ALT [Catalytic activity/Vol] 29 U/L Normal 10-54 [facility] Comment on above: Order Comment: Speci men Type: BLOOD SPECIMENOrdering Facility: [facility] Address: [address] [place] [address] Performed By: #### 2 4323-8 ####[facility] LABCLIA [id number] [place] [address] Anion gap [Moles/Vol] 11 mmol/L Normal 9-18 [facility] Comment on above: Order Comment: Speci men Type: BLOOD SPECIMENOrdering Facility: [facility] Address: [address] [place] [address] Performed By: #### 2 4323-8 ####[facility] LABCLIA [id number] [place] [address] AST [Catalytic activity/Vol] 24 U/L Normal 14-40 [facility] Comment on above: Order Comment: Speci men Type: BLOOD SPECIMENOrdering Facility: [facility] Address: [address] [place] [address] Performed By: #### 2 4323-8 ####[facility] LABCLIA [id number] [place] [address] Bilirubin [Mass/Vol] 1.2 mg/dL Normal 0.2-1.3 [facility] Comment on above: Order Comment: Speci men Type: BLOOD SPECIMENOrdering Facility: [facility] Address: [address] [place] [address] Performed By: #### 2 4323-8 ####[facility] LABCLIA [id number] [place] [address] Calcium [Mass/Vol] 10.7 mg/dL High 8.5-10.2 [facility] Comment on above: Order Comment: Speci men Type: BLOOD SPECIMENOrdering Facility: [facility] Address: [address] [place] [address] Performed By: #### 2 4323-8 ####[facility] LABCLIA [id number] [place] [address] Chloride [Moles/Vol] 106 mmol/L High 97-105 [facility] Comment on above: Order Comment: Speci men Type: BLOOD SPECIMENOrdering Facility: [facility] Address: [address] [place] [address] Performed By: #### 2 4323-8 ####[facility] LABCLIA [id number] [place] [address] CO2 [Moles/Vol] 22 mmol/L Normal 22-30 [facility] Comment on above: Order Comment: Speci men Type: BLOOD SPECIMENOrdering Facility: [facility] Address: [address] [place] [address] Performed By: #### 2 4323-8 ####[facility] LABCLIA [id number] [place] [address] Creatinine [Mass/Vol] 0.83 mg/dL Normal 0.73-1.22 [facility] Comment on above: Order Comment: Speci men Type: BLOOD SPECIMENOrdering Facility: [facility] Address: [address] [place] [address] Performed By: #### 2 4323-8 ####[facility] LABCLIA [id number] [place] [address] Creatinine and Glomerular filtration rate.predicted panel (S/P/Bld) 93 mL/min/1.73m??? Normal >=60 [facility] Comment on above: Order Comment: Speci men Type: BLOOD SPECIMENOrdering Facility: [facility] Address: [address] [place] [address] Result Comment: Kathy mated Glomerular Filtration Rate [...] actual GFR. Performed By: #### 2 4323-8 ####[facility] LABCLIA [id number] [place] [address] Glucose [Mass/Vol] 152 mg/dL High 74-99 [facility] Comment on above: Order Comment: Noemí hoff Type: BLOOD SPECIMENOrdering Facility: [facility] Address: [address] [place] [address] Result Comment: The [place] Diabetes Association (ADA) provides guidance for cutoff [...] Standards of Medical Care in Diabetes 2016, [place] [employer]. Diabetes Care. 2016.39(Suppl 1). Performed By: #### 2 4323-8 ####[facility] LABCLIA [id number] [place] [address] Potassium [Moles/Vol] 3.7 mmol/L Normal 3.7-5.1 [facility] Comment on above: Order Comment: Noemí hoff Type: BLOOD SPECIMENOrdering Facility: [facility] Address: [address] [place] [address] Performed By: #### 2 4323-8 ####[facility] LABCLIA [id number] [place] [address] Protein [Mass/Vol] 6.3 g/dL Normal 6.3-8.0 [facility] Comment on above: Order Comment: Noemí hoff Type: BLOOD SPECIMENOrdering Facility: [facility] Address: [address] [place] [address] Performed By: #### 2 4323-8 ####[facility] LABCLIA [id number] [place] [address] Sodium [Moles/Vol] 139 mmol/L Normal 136-144 [facility] Comment on above: Order Comment: Speci men Type: BLOOD SPECIMENOrdering Facility: [facility] Address: [address] [place] [address] Performed By: #### 2 4323-8 ####[facility] LABCLIA [id number] [place] [address] Urea nitrogen [Mass/Vol] 14 mg/dL Normal 9-24 [facility] Comment on above: Order Comment: Speci men Type: BLOOD SPECIMENOrdering Facility: [facility] Address: [address] [place] [address] Performed By: #### 2 4323-8 ####[facility] LABCLIA [id number] [place] [address] CBC W Auto Differential pane l (Bld)on 07-05-2023 Basophils (Bld) [#/Vol] 0.04 10*3/uL <0.11 k/uL [facility] Differential cell count method Nom (Bld) Auto [facility] Eosinophils (Bld) [#/Vol] 0.12 10*3/uL <0.46 k/uL [facility] Immature granulocytes (Bld) [#/Vol] <0.10 k/uL [facility] Immature granulocytes/100 WBC (Bld) 0.3 % [facility] Lymphocytes (Bld) [#/Vol] 1.27 10*3/uL 1.00 - 4.00 k/uL [facility] Monocytes (Bld) [#/Vol] 0.41 10*3/uL <0.87 k/uL [facility] Neutrophils (Bld) [#/Vol] 4.04 10*3/uL 1.45 - 7.50 k/uL [facility] Nucleated RBC (Bld) [#/Vol] <0.01 k/uL [facility] Nucleated RBC/100 WBC (Bld) [Ratio] 0.0 /100 WBC [facility] Platelet mean volume (Bld) [Entitic vol] 9.4 fL 9.0 - 12.7 fL [facility] Platelets (Bld) [#/Vol] 211 10*3/uL 150 - 400 k/uL [facility] WBC (Bld) [#/Vol] 5.90 10*3/uL 3.70 - 11.00 k/uL [facility] Basophils (Bld) [#/Vol] 0.04 10*3/uL Normal <0.11 [facility] Comment on above: Order Comment: Speci men Type: BLOOD SPECIMENOrdering Facility: [facility] Address: [address] [place] [address] Performed By: #### 5 7021-8 ####[facility] LABCLIA [id number] [place] [address] Basophils/100 WBC (Bld) 0.7 % Normal [facility] Comment on above: Order Comment: Speci men Type: BLOOD SPECIMENOrdering Facility: [facility] Address: [address] [place] [address] Performed By: #### 5 7021-8 ####[facility] LABCLIA [id number] [place] [address] Differential cell count method Nom (Bld) Auto Normal [facility] Comment on above: Order Comment: Speci men Type: BLOOD SPECIMENOrdering Facility: [facility] Address: [address] [place] [address] Performed By: #### 5 7021-8 ####[facility] LABCLIA [id number] [place] [address] Eosinophils (Bld) [#/Vol] 0.12 10*3/uL Normal <0.46 [facility] Comment on above: Order Comment: Speci men Type: BLOOD SPECIMENOrdering Facility: [facility] Address: [address] [place] [address] Performed By: #### 5 7021-8 ####[facility] LABCLIA [id number] [place] [address] Eosinophils/100 WBC (Bld) 2.0 % Normal [facility] Comment on above: Order Comment: Speci men Type: BLOOD SPECIMENOrdering Facility: [facility] Address: [address] [place] [address] Performed By: #### 5 7021-8 ####[facility] LABCLIA [id number] [place] [address] Erythrocyte distribution width (RBC) [Ratio] 17.7 % High 11.5-15.0 [facility] Comment on above: Order Comment: Speci men Type: BLOOD SPECIMENOrdering Facility: [facility] Address: [address] [place] [address] Performed By: #### 5 7021-8 ####[facility] LABCLIA [id number] [place] [address] Hematocrit (Bld) [Volume fraction] 32.0 % Low 39.0-51.0 [facility] Comment on above: Order Comment: Speci men Type: BLOOD SPECIMENOrdering Facility: [facility] Address: [address] [place] [address] Performed By: #### 5 7021-8 ####[facility] LABCLIA [id number] [place] [address] Hemoglobin (Bld) [Mass/Vol] 10.6 g/dL Low 13.0-17.0 [facility] Comment on above: Order Comment: Speci men Type: BLOOD SPECIMENOrdering Facility: [facility] Address: [address] [place] [address] Performed By: #### 5 7021-8 ####[facility] LABCLIA [id number] [place] [address] Immature granulocytes (Bld) [#/Vol] 10*3/uL Normal <0.10 [facility] Comment on above: Order Comment: Speci men Type: BLOOD SPECIMENOrdering Facility: [facility] Address: [address] [place] [address] Performed By: #### 5 7021-8 ####[facility] LABCLIA [id number] [place] [address] Immature granulocytes/100 WBC (Bld) 0.3 % Normal [facility] Comment on above: Order Comment: Speci men Type: BLOOD SPECIMENOrdering Facility: [facility] Address: [address] [place] [address] Performed By: #### 5 7021-8 ####[facility] LABCLIA [id number] [place] [address] Lymphocytes (Bld) [#/Vol] 1.27 10*3/uL Normal 1.00-4.00 [facility] Comment on above: Order Comment: Speci men Type: BLOOD SPECIMENOrdering Facility: [facility] Address: [address] [place] [address] Performed By: #### 5 7021-8 ####[facility] LABCLIA [id number] [place] [address] Lymphocytes/100 WBC (Bld) 21.5 % Normal [facility] Comment on above: Order Comment: Speci men Type: BLOOD SPECIMENOrdering Facility: [facility] Address: [address] [place] [address] Performed By: #### 5 7021-8 ####[facility] LABCLIA [id number] [place] [address] MCH (RBC) [Entitic mass] 33.9 pg Normal 26.0-34.0 [facility] Comment on above: Order Comment: Speci men Type: BLOOD SPECIMENOrdering Facility: [facility] Address: [address] [place] [address] Performed By: #### 5 7021-8 ####[facility] LABCLIA [id number] [place] [address] MCHC (RBC) [Mass/Vol] 33.1 g/dL Normal 30.5-36.0 [facility] Comment on above: Order Comment: Speci men Type: BLOOD SPECIMENOrdering Facility: [facility] Address: [address] [place] [address] Performed By: #### 5 7021-8 ####[facility] LABCLIA [id number] [place] [address] MCV (RBC) [Entitic vol] 102.2 fL High 80.0-100.0 [facility] Comment on above: Order Comment: Speci men Type: BLOOD SPECIMENOrdering Facility: [facility] Address: [address] [place] [address] Performed By: #### 5 7021-8 ####[facility] LABCLIA [id number] [place] [address] Monocytes (Bld) [#/Vol] 0.41 10*3/uL Normal <0.87 [facility] Comment on above: Order Comment: Speci men Type: BLOOD SPECIMENOrdering Facility: [facility] Address: [address] [place] [address] Performed By: #### 5 7021-8 ####[facility] LABCLIA [id number] [place] [address] Monocytes/100 WBC (Bld) 6.9 % Normal [facility] Comment on above: Order Comment: Speci men Type: BLOOD SPECIMENOrdering Facility: [facility] Address: [address] [place] [address] Performed By: #### 5 7021-8 ####[facility] LABCLIA [id number] [place] [address] Neutrophils (Bld) [#/Vol] 4.04 10*3/uL Normal 1.45-7.50 [facility] Comment on above: Order Comment: Speci men Type: BLOOD SPECIMENOrdering Facility: [facility] Address: [address] [place] [address] Performed By: #### 5 7021-8 ####[facility] LABCLIA [id number] [place] [address] Neutrophils/100 WBC (Bld) 68.6 % Normal [facility] Comment on above: Order Comment: Speci men Type: BLOOD SPECIMENOrdering Facility: [facility] Address: [address] [place], [place] [address] Performed By: #### 5 7021-8 ####[facility] LABCLIA [id number] [place] [address] Nucleated RBC (Bld) [#/Vol] 10*3/uL Normal <0.01 [facility] Comment on above: Order Comment: Speci men Type: BLOOD SPECIMENOrdering Facility: [facility] Address: [address] [place] [address] Performed By: #### 5 7021-8 ####[facility] LABCLIA [id number] [place] [address] Nucleated RBC/100 WBC (Bld) [Ratio] 0.0 /100 WBC Normal [facility] Comment on above: Order Comment: Speci men Type: BLOOD SPECIMENOrdering Facility: [facility] Address: [address] [place] [address] Performed By: #### 5 7021-8 ####[facility] LABCLIA [id number] [place] [address] Platelet mean volume (Bld) [Entitic vol] 9.4 fL Normal 9.0-12.7 [facility] Comment on above: Order Comment: Speci men Type: BLOOD SPECIMENOrdering Facility: [facility] Address: [address] [place] [address] Performed By: #### 5 7021-8 ####[facility] LABIA [id number] [place] [address] Platelets (Bld) [#/Vol] 211 10*3/uL Normal 150-400 [facility] Comment on above: Order Comment: Speci men Type: BLOOD SPECIMENOrdering Facility: [facility] Address: [address] [place], [place] [address] Performed By: #### 5 7021-8 ####[facility] LABCLIA [id number] [place] [address] RBC (Bld) [#/Vol] 3.13 10*6/uL Low 4.20-6.00 [facility] Comment on above: Order Comment: Speci men Type: BLOOD SPECIMENOrdering Facility: [facility] Address: [address] [place] [address] Performed By: #### 5 7021-8 ####[facility] LABIA [id number] [place] [address] WBC (Bld) [#/Vol] 5.90 10*3/uL Normal 3.70-11.00 [facility] Comment on above: Order Comment: Speci men Type: BLOOD SPECIMENOrdering Facility: [facility] Address: [address] [place] [address] Performed By: #### 5 7021-8 ####[facility] LABIA [id number] [place] [address] [facility] CBC W AUTO DIFF BLDon [facility] BASOPHILS # BLD AUTO 0.04 [facility] DIFFERENTIAL METHOD BLD Auto [facility] EOSINOPHIL # BLD AUTO 0.12 [facility] LYMPHOCYTES # BLD AUTO 1.27 [facility] MONOCYTES # BLD AUTO 0.41 [facility] NEUTROPHILS # BLD AUTO 4.04 [facility] NRBC # BLD AUTO <0.01 [facility] NRBC/100 WBC BLD-RTO 0.0 /100 WBC [facility] PLATELET # BLD AUTO 211 [facility] PMV BLD AUTO 9.4 fL 9.0 - 12.7 fL [facility] WBC # BLD AUTO 5.90 [facility] IMM GRANULOCYTES # BLD AUTO <0.03 [facility] IMM GRANULOCYTES/LEUK NFR BLD AUTO 0.3 % [facility] Interpretation and review of laboratory results Abnormal [facility] Specimen Type: BLOOD SPECIMEN Ordering Facility: [facility] Address: [address] [place] [address] Original Ordering Provider: GRACE NEWBY [facility] CNOVSPon 07-05-2023 CNOVSP Normal [facility] Cancer Ag19-9 SerPl-aCncon 0 07-05-2023 Cancer Ag 19-9 Qn 1918.0 [arb'U]/mL High <36.0 [facility] Comment on above: Order Comment: Speci men Type: BLOOD SPECIMENOrdering Facility: [facility] Address: [address] [place] [address] Result Comment: [facility] er antigen 19-9 test is used as an aid in monitoring response to treatment or recurrence in patients with established pancreatic, hepatobiliary, or gastrointestinal malignancies. Clinical correlation is required.The CA 19-9 Antigen test was performed using the [employer] DXI paramagnetic particle chemiluminescent immunoassay method. Results obtained with different assay methods or kits cannot be used interchangeably. Performed By: #### 2 4108-3 ####[facility] LABCLIA [id number] [place] [address] [place] Comprehensive metabolic 2000 panelon 07-05-2023 Albumin [Mass/Vol] 3.8 g/dL Low 3.9 - 4.9 g/dL [facility] ALP [Catalytic activity/Vol] 128 U/L High 38 - 113 U/L [facility] ALT [Catalytic activity/Vol] 24 U/L 10 - 54 U/L [facility] Anion gap [Moles/Vol] 10 mmol/L 9 - 18 mmol/L [facility] AST [Catalytic activity/Vol] 14 U/L 14 - 40 U/L [facility] Bilirubin [Mass/Vol] 1.3 mg/dL 0.2 - 1 .3 mg/dL [facility] Calcium [Mass/Vol] 10.3 mg/dL High 8.5 - 10. 2 mg/dL [facility] Chloride [Moles/Vol] 106 mmol/L High 97 - 10 5 mmol/L [facility] CO2 [Moles/Vol] 23 mmol/L 22 - 30 mmol/L [facility] Creatinine [Mass/Vol] 0.85 mg/dL 0.73 - 1.22 mg/dL [facility] Estimated Glomerular Filtration Rate 92 mL/min/1.73m >=60 mL/min/1.73 m [facility] Glucose [Mass/Vol] 164 mg/dL High 74 - 99 mg/dL [facility] Potassium [Moles/Vol] 3.6 mmol/L Low 3.7 - 5.1 mmol/L [facility] Protein [Mass/Vol] 6.3 g/dL 6.3 - 8.0 g/dL [facility] Sodium [Moles/Vol] 139 mmol/L 136 - 144 mmol/L [facility] Urea nitrogen [Mass/Vol] 19 mg/dL 9 - 24 mg/dL [facility] Albumin [Mass/Vol] 3.8 g/dL Low 3.9-4.9 [facility] Comment on above: Order Comment: Speci men Type: BLOOD SPECIMENOrdering Facility: [facility] Address: [address] [place] [address] Performed By: #### 2 4323-8 ####[facility] LABCLIA [id number] [place] [address] ALP [Catalytic activity/Vol] 128 U/L High 38-113 [facility] Comment on above: Order Comment: Speci men Type: BLOOD SPECIMENOrdering Facility: [facility] Address: [address] [place] [address] Performed By: #### 2 4323-8 ####[facility] LABCLIA [id number] [place] [address] ALT [Catalytic activity/Vol] 24 U/L Normal 10-54 [facility] Comment on above: Order Comment: Speci men Type: BLOOD SPECIMENOrdering Facility: [facility] Address: [address] [place] [address] Performed By: #### 2 4323-8 ####[facility] LABCLIA [id number] [place] [address] Anion gap [Moles/Vol] 10 mmol/L Normal 9-18 [facility] Comment on above: Order Comment: Speci men Type: BLOOD SPECIMENOrdering Facility: [facility] Address: [address] [place] [address] Performed By: #### 2 4323-8 ####[facility] LABCLIA [id number] [place] [address] AST [Catalytic activity/Vol] 14 U/L Normal 14-40 [facility] Comment on above: Order Comment: Speci men Type: BLOOD SPECIMENOrdering Facility: [facility] Address: [address] [place] [address] Performed By: #### 2 4323-8 ####[facility] LABCLIA [id number] [place] [address] Bilirubin [Mass/Vol] 1.3 mg/dL Normal 0.2-1.3 [facility] Comment on above: Order Comment: Speci men Type: BLOOD SPECIMENOrdering Facility: [facility] Address: [address] [place] [address] Performed By: #### 2 4323-8 ####[facility] LABCLIA [id number] [place] [address] Calcium [Mass/Vol] 10.3 mg/dL High 8.5-10.2 [facility] Comment on above: Order Comment: Speci men Type: BLOOD SPECIMENOrdering Facility: [facility] Address: [address] [place] [address] Performed By: #### 2 4323-8 ####[facility] LABCLIA [id number] [place] [address] Chloride [Moles/Vol] 106 mmol/L High 97-105 [facility] Comment on above: Order Comment: Speci men Type: BLOOD SPECIMENOrdering Facility: [facility] Address: [address] [place] [address] Performed By: #### 2 4323-8 ####[facility] LABCLIA [id number] [place] [address] CO2 [Moles/Vol] 23 mmol/L Normal 22-30 [facility] Comment on above: Order Comment: Speci men Type: BLOOD SPECIMENOrdering Facility: [facility] Address: [address] [place] [address] Performed By: #### 2 4323-8 ####[facility] LABCLIA [id number] [place] [address] Creatinine [Mass/Vol] 0.85 mg/dL Normal 0.73-1.22 [facility] Comment on above: Order Comment: Speci men Type: BLOOD SPECIMENOrdering Facility: [facility] Address: [address] [place] [address] Performed By: #### 2 4323-8 ####[facility] LABCLIA [id number] [place] [address] Creatinine and Glomerular filtration rate.predicted panel (S/P/Bld) 92 mL/min/1.73m??? Normal >=60 [facility] Comment on above: Order Comment: Speci men Type: BLOOD SPECIMENOrdering Facility: [facility] Address: [address] [place] [address] Result Comment: Kathy mated Glomerular Filtration Rate [...] actual GFR. Performed By: #### 2 4323-8 ####[facility] LABCLIA [id number] [place] [address] Glucose [Mass/Vol] 164 mg/dL High 74-99 [facility] Comment on above: Order Comment: Speci men Type: BLOOD SPECIMENOrdering Facility: [facility] Address: [address] [place] [address] Result Comment: The [place] [employer] (ADA) provides guidance for cutoff [...] Standards of Medical Care in Diabetes 2016, [place] [employer]. Diabetes Care. 2016.39(Suppl 1). Performed By: #### 2 4323-8 ####[facility] LABCLIA [id number] [place] [address] Potassium [Moles/Vol] 3.6 mmol/L Low 3.7-5.1 [facility] Comment on above: Order Comment: Speci men Type: BLOOD SPECIMENOrdering Facility: [facility] Address: [address] [place] [address] Performed By: #### 2 4323-8 ####[facility] LABCLIA [id number] [place] [address] Protein [Mass/Vol] 6.3 g/dL Normal 6.3-8.0 [facility] Comment on above: Order Comment: Speci men Type: BLOOD SPECIMENOrdering Facility: [facility] Address: [address] [place] [address] Performed By: #### 2 4323-8 ####[facility] LABCLIA [id number] [place] [address] Sodium [Moles/Vol] 139 mmol/L Normal 136-144 [facility] Comment on above: Order Comment: Speci men Type: BLOOD SPECIMENOrdering Facility: [facility] Address: [address] [place] [address] Performed By: #### 2 4323-8 ####[facility] LABCLIA [id number] [place] [address] Urea nitrogen [Mass/Vol] 19 mg/dL Normal 9-24 [facility] Comment on above: Order Comment: Speci men Type: BLOOD SPECIMENOrdering Facility: [facility] Address: [address] [place] [address] Performed By: #### 2 4323-8 ####[facility] LABCLIA [id number] [place] [id number] Laboratory - Hematology and Cell countson 07-05-2023 Basophils/100 WBC (Bld) 0.7 % [facility] Eosinophils/100 WBC (Bld) 2.0 % [facility] Erythrocyte distribution width (RBC) [Ratio] 17.7 % High 11.5 - 15.0 % [facility] Hematocrit (Bld) [Volume fraction] 32.0 % Low 39.0 - 51.0 % [facility] Hemoglobin (Bld) [Mass/Vol] 10.6 g/dL Low 13.0 - 17.0 g/dL [facility] Lymphocytes/100 WBC (Bld) 21.5 % [facility] MCH (RBC) [Entitic mass] 33.9 pg 26.0 - 34.0 pg [facility] MCHC (RBC) [Mass/Vol] 33.1 g/dL 30.5 - 36.0 g/dL [facility] MCV (RBC) [Entitic vol] 102.2 fL High 80.0 - 100.0 fL [facility] Monocytes/100 WBC (Bld) 6.9 % [facility] Neutrophils/100 WBC (Bld) 68.6 % [facility] RBC (Bld) [#/Vol] 3.13 10*6/uL Low 4.20 - 6.0 0 m/uL [facility] CNPNon 06-23-2023 CNPN Normal [facility] CBC W Auto Differential pane l (Bld)on 06-21-2023 Basophils (Bld) [#/Vol] 0.03 10*3/uL Normal <0.11 [facility] Comment on above: Order Comment: Speci men Type: BLOOD SPECIMENOrdering Facility: [facility] Address: [address] [place] [address] Performed By: #### 5 7021-8 ####[facility] LABCLIA [id number] [place] [address] Basophils/100 WBC (Bld) 0.4 % Normal [facility] Comment on above: Order Comment: Speci men Type: BLOOD SPECIMENOrdering Facility: [facility] Address: [address] [place] [address] Performed By: #### 5 7021-8 ####[facility] LABCLIA [id number] [place] [address] Differential cell count method Nom (Bld) Auto Normal [facility] Comment on above: Order Comment: Speci men Type: BLOOD SPECIMENOrdering Facility: [facility] Address: [address] [place] [address] Performed By: #### 5 7021-8 ####[facility] LABCLIA [id number] [place] [address] Eosinophils (Bld) [#/Vol] 0.07 10*3/uL Normal <0.46 [facility] Comment on above: Order Comment: Speci men Type: BLOOD SPECIMENOrdering Facility: [facility] Address: [address] [place] [address] Performed By: #### 5 7021-8 ####[facility] LABCLIA [id number] [place] [address] Eosinophils/100 WBC (Bld) 0.9 % Normal [facility] Comment on above: Order Comment: Speci men Type: BLOOD SPECIMENOrdering Facility: [facility] Address: [address] [place] [address] Performed By: #### 5 7021-8 ####[facility] LABCLIA [id number] [place] [address] Erythrocyte distribution width (RBC) [Ratio] 16.7 % High 11.5-15.0 [facility] Comment on above: Order Comment: Speci men Type: BLOOD SPECIMENOrdering Facility: [facility] Address: [address] [place] [address] Performed By: #### 5 7021-8 ####[facility] LABCLIA [id number] [place] [address] Hematocrit (Bld) [Volume fraction] 29.9 % Low 39.0-51.0 [facility] Comment on above: Order Comment: Speci men Type: BLOOD SPECIMENOrdering Facility: [facility] Address: [address] [place] [address] Performed By: #### 5 7021-8 ####[facility] LABCLIA [id number] [place] [address] Hemoglobin (Bld) [Mass/Vol] 10.1 g/dL Low 13.0-17.0 [facility] Comment on above: Order Comment: Speci men Type: BLOOD SPECIMENOrdering Facility: [facility] Address: [address] [place] [address] Performed By: #### 5 7021-8 ####[facility] LABCLIA [id number] [place] [address] Immature granulocytes (Bld) [#/Vol] 0.03 10*3/uL Normal <0.10 [facility] Comment on above: Order Comment: Speci men Type: BLOOD SPECIMENOrdering Facility: [facility] Address: [address] [place] [address] Performed By: #### 5 7021-8 ####[facility] LABCLIA [id number] [place] [address] Immature granulocytes/100 WBC (Bld) 0.4 % Normal [facility] Comment on above: Order Comment: Speci men Type: BLOOD SPECIMENOrdering Facility: [facility] Address: [address] [place] [address] Performed By: #### 5 7021-8 ####[facility] LABCLIA [id number] [place] [address] Lymphocytes (Bld) [#/Vol] 1.48 10*3/uL Normal 1.00-4.00 [facility] Comment on above: Order Comment: Speci men Type: BLOOD SPECIMENOrdering Facility: [facility] Address: [address] [place] [address] Performed By: #### 5 7021-8 ####[facility] LABCLIA [id number] [place] [address] Lymphocytes/100 WBC (Bld) 20.0 % Normal [facility] Comment on above: Order Comment: Speci men Type: BLOOD SPECIMENOrdering Facility: [facility] Address: [address] [place] [address] Performed By: #### 5 7021-8 ####[facility] LABCLIA [id number] [place] [address] MCH (RBC) [Entitic mass] 34.0 pg Normal 26.0-34.0 [facility] Comment on above: Order Comment: Speci men Type: BLOOD SPECIMENOrdering Facility: [facility] Address: [address] [place] [address] Performed By: #### 5 7021-8 ####[facility] LABCLIA [id number] [place] [address] MCHC (RBC) [Mass/Vol] 33.8 g/dL Normal 30.5-36.0 [facility] Comment on above: Order Comment: Speci men Type: BLOOD SPECIMENOrdering Facility: [facility] Address: [address] [place] [address] Performed By: #### 5 7021-8 ####[facility] LABCLIA [id number] [place] [address] MCV (RBC) [Entitic vol] 100.7 fL High 80.0-100.0 [facility] Comment on above: Order Comment: Speci men Type: BLOOD SPECIMENOrdering Facility: [facility] Address: [address] [place] [address] Performed By: #### 5 7021-8 ####[facility] LABCLIA [id number] [place] [address] Monocytes (Bld) [#/Vol] 0.38 10*3/uL Normal <0.87 [facility] Comment on above: Order Comment: Speci men Type: BLOOD SPECIMENOrdering Facility: [facility] Address: [address] [place] [address] Performed By: #### 5 7021-8 ####[facility] LABCLIA [id number] [place] [address] Monocytes/100 WBC (Bld) 5.1 % Normal [facility] Comment on above: Order Comment: Speci men Type: BLOOD SPECIMENOrdering Facility: [facility] Address: [address] [place] [address] Performed By: #### 5 7021-8 ####[facility] LABCLIA [id number] [place] [address] Neutrophils (Bld) [#/Vol] 5.41 10*3/uL Normal 1.45-7.50 [facility] Comment on above: Order Comment: Speci men Type: BLOOD SPECIMENOrdering Facility: [facility] Address: [address] [place] [address] Performed By: #### 5 7021-8 ####[facility] LABCLIA [id number] [place] [address] Neutrophils/100 WBC (Bld) 73.2 % Normal [facility] Comment on above: Order Comment: Speci men Type: BLOOD SPECIMENOrdering Facility: [facility] Address: [address] [place] [address] Performed By: #### 5 7021-8 ####[facility] LABCLIA [id number] [place] [address] Nucleated RBC (Bld) [#/Vol] 10*3/uL Normal <0.01 [facility] Comment on above: Order Comment: Speci men Type: BLOOD SPECIMENOrdering Facility: [facility] Address: [address] [place] [address] Performed By: #### 5 7021-8 ####[facility] LABCLIA [id number] [place] [address] Nucleated RBC/100 WBC (Bld) [Ratio] 0.0 /100 WBC Normal [facility] Comment on above: Order Comment: Speci men Type: BLOOD SPECIMENOrdering Facility: [facility] Address: [address] [place] [address] Performed By: #### 5 7021-8 ####[facility] LABCLIA [id number] [place] [address] Platelet mean volume (Bld) [Entitic vol] 9.0 fL Normal 9.0-12.7 [facility] Comment on above: Order Comment: Speci men Type: BLOOD SPECIMENOrdering Facility: [facility] Address: [address] [place] [address] Performed By: #### 5 7021-8 ####[facility] LABCLIA [id number] [place] [address] Platelets (Bld) [#/Vol] 258 10*3/uL Normal 150-400 [facility] Comment on above: Order Comment: Speci men Type: BLOOD SPECIMENOrdering Facility: [facility] Address: [address] [place] [address] Performed By: #### 5 7021-8 ####[facility] LABCLIA [id number] [place] [address] RBC (Bld) [#/Vol] 2.97 10*6/uL Low 4.20-6.00 [facility] Comment on above: Order Comment: Speci men Type: BLOOD SPECIMENOrdering Facility: [facility] Address: [address] [place] [address] Performed By: #### 5 7021-8 ####[facility] LABCLIA [id number] [place] [address] WBC (Bld) [#/Vol] 7.40 10*3/uL Normal 3.70-11.00 [facility] Comment on above: Order Comment: Speci men Type: BLOOD SPECIMENOrdering Facility: [facility] Address: [address] [place] [address] Performed By: #### 5 7021-8 ####[facility] LABCLIA [id number] [place] [address] CNCNPATEDon 06-21-2023 CNCNPATED Normal [facility] CNOVSPon 06-21-2023 CNOVSP Normal [facility] Comprehensive metabolic 2000 panelon 06-21-2023 Albumin [Mass/Vol] 3.8 g/dL Low 3.9-4.9 [facility] Comment on above: Order Comment: Speci men Type: BLOOD SPECIMENOrdering Facility: [facility] Address: [address] [place] [address] Performed By: #### 2 4323-8 ####[facility] LABCLIA [id number] [place] [address] ALP [Catalytic activity/Vol] 121 U/L High 38-113 [facility] Comment on above: Order Comment: Speci men Type: BLOOD SPECIMENOrdering Facility: [facility] Address: [address] [place] [address] Performed By: #### 2 4323-8 ####[facility] LABCLIA [id number] [place] [address] ALT [Catalytic activity/Vol] 16 U/L Normal 10-54 [facility] Comment on above: Order Comment: Speci men Type: BLOOD SPECIMENOrdering Facility: [facility] Address: [address] [place] [address] Performed By: #### 2 4323-8 ####[facility] LABCLIA [id number] [place] [address] Anion gap [Moles/Vol] 9 mmol/L Normal 9-18 [facility] Comment on above: Order Comment: Speci men Type: BLOOD SPECIMENOrdering Facility: [facility] Address: [address] [place] [address] Performed By: #### 2 4323-8 ####[facility] LABCLIA [id number] [place] [address] AST [Catalytic activity/Vol] 15 U/L Normal 14-40 [facility] Comment on above: Order Comment: Speci men Type: BLOOD SPECIMENOrdering Facility: [facility] Address: [address] [place] [address] Performed By: #### 2 4323-8 ####[facility] LABCLIA [id number] [place] [address] Bilirubin [Mass/Vol] 1.2 mg/dL Normal 0.2-1.3 [facility] Comment on above: Order Comment: Speci men Type: BLOOD SPECIMENOrdering Facility: [facility] Address: [address] [place] [address] Performed By: #### 2 4323-8 ####[facility] LABCLIA [id number] [place] [address] Calcium [Mass/Vol] 10.2 mg/dL Normal 8.5-10.2 [facility] Comment on above: Order Comment: Speci men Type: BLOOD SPECIMENOrdering Facility: [facility] Address: [address] [place] [address] Performed By: #### 2 4323-8 ####[facility] LABCLIA [id number] [place] [address] Chloride [Moles/Vol] 107 mmol/L High 97-105 [facility] Comment on above: Order Comment: Speci men Type: BLOOD SPECIMENOrdering Facility: [facility] Address: [address] [place] [address] Performed By: #### 2 4323-8 ####[facility] LABCLIA [id number] [place] [address] CO2 [Moles/Vol] 23 mmol/L Normal 22-30 [facility] Comment on above: Order Comment: Speci men Type: BLOOD SPECIMENOrdering Facility: [facility] Address: [address] [place] [address] Performed By: #### 2 4323-8 ####[facility] LABCLIA [id number] [place] [address] Creatinine [Mass/Vol] 0.75 mg/dL Normal 0.73-1.22 [facility] Comment on above: Order Comment: Speci men Type: BLOOD SPECIMENOrdering Facility: [facility] Address: [address] [place] [address] Performed By: #### 2 4323-8 ####[facility] LABIA [id number] [place] [address] Creatinine and Glomerular filtration rate.predicted panel (S/P/Bld) 96 mL/min/1.73m??? Normal >=60 [facility] Comment on above: Order Comment: Speci men Type: BLOOD SPECIMENOrdering Facility: [facility] Address: [address] [place] [address] Result Comment: Kathy mated Glomerular Filtration Rate [...] actual GFR. Performed By: #### 2 4323-8 ####[facility] LABIA [id number] [place] [address] Glucose [Mass/Vol] 156 mg/dL High 74-99 [facility] Comment on above: Order Comment: Speci men Type: BLOOD SPECIMENOrdering Facility: [facility] Address: [address] [place] [address] Result Comment: The [place] [employer] (ADA) provides guidance for cutoff [...] Standards of Medical Care in Diabetes 2016, [place] [employer]. Diabetes Care. 2016.39(Suppl 1). Performed By: #### 2 4323-8 ####[facility] LABCLIA [id number] [place] [address] Potassium [Moles/Vol] 3.6 mmol/L Low 3.7-5.1 [facility] Comment on above: Order Comment: Speci men Type: BLOOD SPECIMENOrdering Facility: [facility] Address: [address] [place] [address] Performed By: #### 2 4323-8 ####[facility] LABCLIA [id number] [place] [address] Protein [Mass/Vol] 6.1 g/dL Low 6.3-8.0 [facility] Comment on above: Order Comment: Speci men Type: BLOOD SPECIMENOrdering Facility: [facility] Address: [address] [place] [address] Performed By: #### 2 4323-8 ####[facility] LABCLIA [id number] [place] [address] Sodium [Moles/Vol] 139 mmol/L Normal 136-144 [facility] Comment on above: Order Comment: Speci men Type: BLOOD SPECIMENOrdering Facility: [facility] Address: [address] [place] [address] Performed By: #### 2 4323-8 ####[facility] LABCLIA [id number] [place] [address] Urea nitrogen [Mass/Vol] 13 mg/dL Normal 9-24 [facility] Comment on above: Order Comment: Speci men Type: BLOOD SPECIMENOrdering Facility: [facility] Address: [address] [place] [address] Performed By: #### 2 4323-8 ####[facility] LABCLIA [id number] [place] [address] CNPNon 06-12-2023 CNPN Normal [facility] CNPNon 06-08-2023 CNPN Normal [facility] CBC W Auto Differential pane l (Bld)on 06-07-2023 Basophils (Bld) [#/Vol] 0.04 10*3/uL Normal <0.11 [facility] Comment on above: Order Comment: Speci men Type: BLOOD SPECIMENOrdering Facility: [facility] Address: [address] [place] [address] Performed By: #### 5 7021-8 ####[facility] LABCLIA [id number] [place] [address] Basophils/100 WBC (Bld) 0.4 % Normal [facility] Comment on above: Order Comment: Speci men Type: BLOOD SPECIMENOrdering Facility: [facility] Address: [address] [place] [address] Performed By: #### 5 7021-8 ####[facility] LABCLIA [id number] [place] [address] Differential cell count method Nom (Bld) Auto Normal [facility] Comment on above: Order Comment: Speci men Type: BLOOD SPECIMENOrdering Facility: [facility] Address: [address] [place] [address] Performed By: #### 5 7021-8 ####[facility] LABCLIA [id number] [place] [address] Eosinophils (Bld) [#/Vol] 10*3/uL Normal <0.46 [facility] Comment on above: Order Comment: Speci men Type: BLOOD SPECIMENOrdering Facility: [facility] Address: [address] [place] [address] Performed By: #### 5 7021-8 ####[facility] LABCLIA [id number] [place] [address] Eosinophils/100 WBC (Bld) 0.1 % Normal [facility] Comment on above: Order Comment: Speci men Type: BLOOD SPECIMENOrdering Facility: [facility] Address: [address] [place] [address] Performed By: #### 5 7021-8 ####[facility] LABCLIA [id number] [place] [address] Erythrocyte distribution width (RBC) [Ratio] 15.4 % High 11.5-15.0 [facility] Comment on above: Order Comment: Speci men Type: BLOOD SPECIMENOrdering Facility: [facility] Address: [address] [place] [address] Performed By: #### 5 7021-8 ####[facility] LABCLIA [id number] [place] [address] Hematocrit (Bld) [Volume fraction] 35.8 % Low 39.0-51.0 [facility] Comment on above: Order Comment: Speci men Type: BLOOD SPECIMENOrdering Facility: [facility] Address: [address] [place] [address] Performed By: #### 5 7021-8 ####[facility] LABCLIA [id number] [place] [address] Hemoglobin (Bld) [Mass/Vol] 11.7 g/dL Low 13.0-17.0 [facility] Comment on above: Order Comment: Speci men Type: BLOOD SPECIMENOrdering Facility: [facility] Address: [address] [place] [address] Performed By: #### 5 7021-8 ####[facility] LABCLIA [id number] [place] [address] Immature granulocytes (Bld) [#/Vol] 0.04 10*3/uL Normal <0.10 [facility] Comment on above: Order Comment: Speci men Type: BLOOD SPECIMENOrdering Facility: [facility] Address: [address] [place] [address] Performed By: #### 5 7021-8 ####[facility] LABCLIA [id number] [place] [address] Immature granulocytes/100 WBC (Bld) 0.4 % Normal [facility] Comment on above: Order Comment: Speci men Type: BLOOD SPECIMENOrdering Facility: [facility] Address: [address] [place] [address] Performed By: #### 5 7021-8 ####[facility] LABCLIA [id number] [place] [address] Lymphocytes (Bld) [#/Vol] 1.39 10*3/uL Normal 1.00-4.00 [facility] Comment on above: Order Comment: Speci men Type: BLOOD SPECIMENOrdering Facility: [facility] Address: [address] [place] [address] Performed By: #### 5 7021-8 ####[facility] LABCLIA [id number] [place] [address] Lymphocytes/100 WBC (Bld) 12.4 % Normal [facility] Comment on above: Order Comment: Speci men Type: BLOOD SPECIMENOrdering Facility: [facility] Address: [address] [place] [address] Performed By: #### 5 7021-8 ####[facility] LABIA [id number] [place] [address] MCH (RBC) [Entitic mass] 33.0 pg Normal 26.0-34.0 [facility] Comment on above: Order Comment: Speci men Type: BLOOD SPECIMENOrdering Facility: [facility] Address: [address] [place] [address] Performed By: #### 5 7021-8 ####[facility] LABCLIA [id number] [place] [address] MCHC (RBC) [Mass/Vol] 32.7 g/dL Normal 30.5-36.0 [facility] Comment on above: Order Comment: Speci men Type: BLOOD SPECIMENOrdering Facility: [facility] Address: [address] [place] [address] Performed By: #### 5 7021-8 ####[facility] LABCLIA [id number] [place] [address] MCV (RBC) [Entitic vol] 100.8 fL High 80.0-100.0 [facility] Comment on above: Order Comment: Speci men Type: BLOOD SPECIMENOrdering Facility: [facility] Address: [address] [place] [address] Performed By: #### 5 7021-8 ####[facility] LABCLIA [id number] [place] [address] Monocytes (Bld) [#/Vol] 0.76 10*3/uL Normal <0.87 [facility] Comment on above: Order Comment: Speci men Type: BLOOD SPECIMENOrdering Facility: [facility] Address: [address] [place] [address] Performed By: #### 5 7021-8 ####[facility] LABCLIA [id number] [place] [address] Monocytes/100 WBC (Bld) 6.8 % Normal [facility] Comment on above: Order Comment: Speci men Type: BLOOD SPECIMENOrdering Facility: [facility] Address: [address] [place] [address] Performed By: #### 5 7021-8 ####[facility] LABCLIA [id number] [place] [address] Neutrophils (Bld) [#/Vol] 8.98 10*3/uL High 1.45-7.50 [facility] Comment on above: Order Comment: Speci men Type: BLOOD SPECIMENOrdering Facility: [facility] Address: [address] [place] [address] Performed By: #### 5 7021-8 ####[facility] LABCLIA [id number] [place] [address] Neutrophils/100 WBC (Bld) 79.9 % Normal [facility] Comment on above: Order Comment: Speci men Type: BLOOD SPECIMENOrdering Facility: [facility] Address: [address] [place] [address] Performed By: #### 5 7021-8 ####[facility] LABCLIA [id number] [place] [address] Nucleated RBC (Bld) [#/Vol] 10*3/uL Normal <0.01 [facility] Comment on above: Order Comment: Speci men Type: BLOOD SPECIMENOrdering Facility: [facility] Address: [address] [place] [address] Performed By: #### 5 7021-8 ####[facility] LABCLIA [id number] [place] [address] Nucleated RBC/100 WBC (Bld) [Ratio] 0.0 /100 WBC Normal [facility] Comment on above: Order Comment: Speci men Type: BLOOD SPECIMENOrdering Facility: [facility] Address: [address] [place] [address] Performed By: #### 5 7021-8 ####[facility] LABCLIA [id number] [place] [address] Platelet mean volume (Bld) [Entitic vol] 9.9 fL Normal 9.0-12.7 [facility] Comment on above: Order Comment: Speci men Type: BLOOD SPECIMENOrdering Facility: [facility] Address: [address] [place] [address] Performed By: #### 5 7021-8 ####[facility] LABCLIA [id number] [place] [address] Platelets (Bld) [#/Vol] 297 10*3/uL Normal 150-400 [facility] Comment on above: Order Comment: Speci men Type: BLOOD SPECIMENOrdering Facility: [facility] Address: [address] [place] [address] Performed By: #### 5 7021-8 ####[facility] LABIA [id number] [place] [address] RBC (Bld) [#/Vol] 3.55 10*6/uL Low 4.20-6.00 [facility] Comment on above: Order Comment: Speci men Type: BLOOD SPECIMENOrdering Facility: [facility] Address: [address] [place] [address] Performed By: #### 5 7021-8 ####[facility] LABIA [id number] [place] [address] WBC (Bld) [#/Vol] 11.22 10*3/uL High 3.70-11.00 [facility] Comment on above: Order Comment: Speci men Type: BLOOD SPECIMENOrdering Facility: [facility] Address: [address] [place] [address] Performed By: #### 5 7021-8 ####[facility] LABIA [id number] [place] [address] CNCNPATEDon 06-07-2023 CNCNPATED Normal [facility] CNNURSEon 06-07-2023 CNNURSE Normal [facility] CNOVSPon 06-07-2023 CNOVSP Normal [facility] CNPNon 06-07-2023 CNPN Normal [facility] Comprehensive metabolic 2000 panelon 06-07-2023 Albumin [Mass/Vol] 4.3 g/dL Normal 3.9-4.9 [facility] Comment on above: Order Comment: Speci men Type: BLOOD SPECIMENOrdering Facility: [facility] Address: [address] [place] [address] Performed By: #### 2 4323-8 ####[facility] LABCLIA [id number] [place] [address] ALP [Catalytic activity/Vol] 127 U/L High 38-113 [facility] Comment on above: Order Comment: Speci men Type: BLOOD SPECIMENOrdering Facility: [facility] Address: [address] [place] [address] Performed By: #### 2 4323-8 ####[facility] LABCLIA [id number] [place] [address] ALT [Catalytic activity/Vol] 34 U/L Normal 10-54 [facility] Comment on above: Order Comment: Speci men Type: BLOOD SPECIMENOrdering Facility: [facility] Address: [address] [place] [address] Performed By: #### 2 4323-8 ####[facility] LABCLIA [id number] [place] [address] Anion gap [Moles/Vol] 9 mmol/L Normal 9-18 [facility] Comment on above: Order Comment: Speci men Type: BLOOD SPECIMENOrdering Facility: [facility] Address: [address] [place] [address] Performed By: #### 2 4323-8 ####[facility] LABCLIA [id number] [place] [address] AST [Catalytic activity/Vol] 25 U/L Normal 14-40 [facility] Comment on above: Order Comment: Speci men Type: BLOOD SPECIMENOrdering Facility: [facility] Address: [address] [place] [address] Performed By: #### 2 4323-8 ####[facility] LABCLIA [id number] [place] [address] Bilirubin [Mass/Vol] 1.3 mg/dL Normal 0.2-1.3 [facility] Comment on above: Order Comment: Speci men Type: BLOOD SPECIMENOrdering Facility: [facility] Address: [address] [place] [address] Performed By: #### 2 4323-8 ####[facility] LABCLIA [id number] [place] [address] Calcium [Mass/Vol] 10.7 mg/dL High 8.5-10.2 [facility] Comment on above: Order Comment: Speci men Type: BLOOD SPECIMENOrdering Facility: [facility] Address: [address] [place] [address] Performed By: #### 2 4323-8 ####[facility] LABCLIA [id number] [place] [address] Chloride [Moles/Vol] 103 mmol/L Normal 97-105 [facility] Comment on above: Order Comment: Speci men Type: BLOOD SPECIMENOrdering Facility: [facility] Address: [address] [place] [address] Performed By: #### 2 4323-8 ####[facility] LABCLIA [id number] [place] [address] CO2 [Moles/Vol] 25 mmol/L Normal 22-30 [facility] Comment on above: Order Comment: Speci men Type: BLOOD SPECIMENOrdering Facility: [facility] Address: [address] [place] [address] Performed By: #### 2 4323-8 ####[facility] LABCLIA [id number] [place] [address] Creatinine [Mass/Vol] 0.78 mg/dL Normal 0.73-1.22 [facility] Comment on above: Order Comment: Speci men Type: BLOOD SPECIMENOrdering Facility: [facility] Address: [address] [place] [address] Performed By: #### 2 4323-8 ####[facility] LABCLIA [id number] [place] [address] Creatinine and Glomerular filtration rate.predicted panel (S/P/Bld) 95 mL/min/1.73m??? Normal >=60 [facility] Comment on above: Order Comment: Noemí hoff Type: BLOOD SPECIMENOrdering Facility: [facility] Address: [address] [place] [address] Result Comment: Kathy mated Glomerular Filtration Rate [...] actual GFR. Performed By: #### 2 4323-8 ####[facility] LABCLIA [id number] [place] [address] Glucose [Mass/Vol] 165 mg/dL High 74-99 [facility] Comment on above: Order Comment: Noemí hoff Type: BLOOD SPECIMENOrdering Facility: [facility] Address: [address] [place] [address] Result Comment: The [place] [employer] (ADA) provides guidance for cutoff [...] Standards of Medical Care in Diabetes 2016, [place] [employer]. Diabetes Care. 2016.39(Suppl 1). Performed By: #### 2 4323-8 ####[facility] LABCLIA [id number] [place] [address] Potassium [Moles/Vol] 4.3 mmol/L Normal 3.7-5.1 [facility] Comment on above: Order Comment: Noemí hoff Type: BLOOD SPECIMENOrdering Facility: [facility] Address: [address] [id number] Performed By: #### 2 4323-8 ####[facility] LABCLIA [id number] [place] [address] Protein [Mass/Vol] 6.9 g/dL Normal 6.3-8.0 [facility] Comment on above: Order Comment: Speci men Type: BLOOD SPECIMENOrdering Facility: [facility] Address: [address] [place] [address] Performed By: #### 2 4323-8 ####[facility] LABCLIA [id number] [place] [address] Sodium [Moles/Vol] 137 mmol/L Normal 136-144 [facility] Comment on above: Order Comment: Speci men Type: BLOOD SPECIMENOrdering Facility: [facility] Address: [address] [place] [address] Performed By: #### 2 4323-8 ####[facility] LABCLIA [id number] [place] [address] Urea nitrogen [Mass/Vol] 18 mg/dL Normal 9-24 [facility] Comment on above: Order Comment: Speci men Type: BLOOD SPECIMENOrdering Facility: [facility] Address: [address] [place] [address] Performed By: #### 2 4323-8 ####[facility] LABCLIA [id number] [place] [address] CNPNon 06-06-2023 CNPN Normal [facility] CBC W Auto Differential pane l (Bld)on 05-24-2023 Basophils (Bld) [#/Vol] 10*3/uL Normal <0.11 [facility] Comment on above: Order Comment: Speci men Type: BLOOD SPECIMENOrdering Facility: [facility] Address: [address] [place] [address] Performed By: #### 5 7021-8 ####[facility] LABCLIA [id number] [place] [address] Basophils/100 WBC (Bld) 0.3 % Normal [facility] Comment on above: Order Comment: Speci men Type: BLOOD SPECIMENOrdering Facility: [facility] Address: [address] [place] [address] Performed By: #### 5 7021-8 ####[facility] LABCLIA [id number] [place] [address] Differential cell count method Nom (Bld) Auto Normal [facility] Comment on above: Order Comment: Speci men Type: BLOOD SPECIMENOrdering Facility: [facility] Address: [address] [place] [address] Performed By: #### 5 7021-8 ####[facility] LABCLIA [id number] [place] [address] Eosinophils (Bld) [#/Vol] 0.04 10*3/uL Normal <0.46 [facility] Comment on above: Order Comment: Speci men Type: BLOOD SPECIMENOrdering Facility: [facility] Address: [address] [place] [address] Performed By: #### 5 7021-8 ####[facility] LABCLIA [id number] [place] [address] Eosinophils/100 WBC (Bld) 0.5 % Normal [facility] Comment on above: Order Comment: Speci men Type: BLOOD SPECIMENOrdering Facility: [facility] Address: [address] [place] [address] Performed By: #### 5 7021-8 ####[facility] LABCLIA [id number] [place] [address] Erythrocyte distribution width (RBC) [Ratio] 19.4 % High 11.5-15.0 [facility] Comment on above: Order Comment: Speci men Type: BLOOD SPECIMENOrdering Facility: [facility] Address: [address] [place] [address] Performed By: #### 5 7021-8 ####[facility] LABCLIA [id number] [place] [address] Hematocrit (Bld) [Volume fraction] 33.0 % Low 39.0-51.0 [facility] Comment on above: Order Comment: Speci men Type: BLOOD SPECIMENOrdering Facility: [facility] Address: [address] [place] [address] Performed By: #### 5 7021-8 ####[facility] LABCLIA [id number] [place] [address] Hemoglobin (Bld) [Mass/Vol] 10.5 g/dL Low 13.0-17.0 [facility] Comment on above: Order Comment: Speci men Type: BLOOD SPECIMENOrdering Facility: [facility] Address: [address] [place] [address] Performed By: #### 5 7021-8 ####[facility] LABIA [id number] [place] [address] Immature granulocytes (Bld) [#/Vol] 0.03 10*3/uL Normal <0.10 [facility] Comment on above: Order Comment: Speci men Type: BLOOD SPECIMENOrdering Facility: [facility] Address: [address] [place] [address] Performed By: #### 5 7021-8 ####[facility] LABIA [id number] [place] [address] Immature granulocytes/100 WBC (Bld) 0.4 % Normal [facility] Comment on above: Order Comment: Speci men Type: BLOOD SPECIMENOrdering Facility: [facility] Address: [address] [place] [address] Performed By: #### 5 7021-8 ####[facility] LABIA [id number] [place] [address] Lymphocytes (Bld) [#/Vol] 1.47 10*3/uL Normal 1.00-4.00 [facility] Comment on above: Order Comment: Speci men Type: BLOOD SPECIMENOrdering Facility: [facility] Address: [address] [place] [address] Performed By: #### 5 7021-8 ####[facility] LABCLIA [id number] [place] [address] Lymphocytes/100 WBC (Bld) 19.8 % Normal [facility] Comment on above: Order Comment: Speci men Type: BLOOD SPECIMENOrdering Facility: [facility] Address: [address] [place] [address] Performed By: #### 5 7021-8 ####[facility] LABCLIA [id number] [place] [address] MCH (RBC) [Entitic mass] 32.5 pg Normal 26.0-34.0 [facility] Comment on above: Order Comment: Speci men Type: BLOOD SPECIMENOrdering Facility: [facility] Address: [address] [place] [address] Performed By: #### 5 7021-8 ####[facility] LABCLIA [id number] [place] [address] MCHC (RBC) [Mass/Vol] 31.8 g/dL Normal 30.5-36.0 [facility] Comment on above: Order Comment: Speci men Type: BLOOD SPECIMENOrdering Facility: [facility] Address: [address] [place] [address] Performed By: #### 5 7021-8 ####[facility] LABCLIA [id number] [place] [address] MCV (RBC) [Entitic vol] 102.2 fL High 80.0-100.0 [facility] Comment on above: Order Comment: Speci men Type: BLOOD SPECIMENOrdering Facility: [facility] Address: [address] [place] [address] Performed By: #### 5 7021-8 ####[facility] LABCLIA [id number] [place] [address] Monocytes (Bld) [#/Vol] 0.80 10*3/uL Normal <0.87 [facility] Comment on above: Order Comment: Speci men Type: BLOOD SPECIMENOrdering Facility: [facility] Address: [address] [place] [address] Performed By: #### 5 7021-8 ####[facility] LABCLIA [id number] [place] [address] Monocytes/100 WBC (Bld) 10.8 % Normal [facility] Comment on above: Order Comment: Speci men Type: BLOOD SPECIMENOrdering Facility: [facility] Address: [address] [place] [address] Performed By: #### 5 7021-8 ####[facility] LABCLIA [id number] [place] [address] Neutrophils (Bld) [#/Vol] 5.07 10*3/uL Normal 1.45-7.50 [facility] Comment on above: Order Comment: Speci men Type: BLOOD SPECIMENOrdering Facility: [facility] Address: [address] [place] [address] Performed By: #### 5 7021-8 ####[facility] LABCLIA [id number] [place] [address] Neutrophils/100 WBC (Bld) 68.2 % Normal [facility] Comment on above: Order Comment: Speci men Type: BLOOD SPECIMENOrdering Facility: [facility] Address: [address] [place] [address] Performed By: #### 5 7021-8 ####[facility] LABCLIA [id number] [place] [address] Nucleated RBC (Bld) [#/Vol] 10*3/uL Normal <0.01 [facility] Comment on above: Order Comment: Speci men Type: BLOOD SPECIMENOrdering Facility: [facility] Address: [address] [place] [address] Performed By: #### 5 7021-8 ####[facility] LABCLIA [id number] [place] [address] Nucleated RBC/100 WBC (Bld) [Ratio] 0.0 /100 WBC Normal [facility] Comment on above: Order Comment: Speci men Type: BLOOD SPECIMENOrdering Facility: [facility] Address: [address] [place] [address] Performed By: #### 5 7021-8 ####[facility] LABCLIA [id number] [place] [address] Platelet mean volume (Bld) [Entitic vol] 9.9 fL Normal 9.0-12.7 [facility] Comment on above: Order Comment: Speci men Type: BLOOD SPECIMENOrdering Facility: [facility] Address: [address] [place] [address] Performed By: #### 5 7021-8 ####[facility] LABCLIA [id number] [place] [address] Platelets (Bld) [#/Vol] 222 10*3/uL Normal 150-400 [facility] Comment on above: Order Comment: Speci men Type: BLOOD SPECIMENOrdering Facility: [facility] Address: [address] [place] [address] Performed By: #### 5 7021-8 ####[facility] LABCLIA [id number] [place] [address] RBC (Bld) [#/Vol] 3.23 10*6/uL Low 4.20-6.00 [facility] Comment on above: Order Comment: Speci men Type: BLOOD SPECIMENOrdering Facility: [facility] Address: [address] [place] [address] Performed By: #### 5 7021-8 ####[facility] LABCLIA [id number] [place] [address] WBC (Bld) [#/Vol] 7.43 10*3/uL Normal 3.70-11.00 [facility] Comment on above: Order Comment: Speci men Type: BLOOD SPECIMENOrdering Facility: [facility] Address: [address] [place] [address] Performed By: #### 5 7021-8 ####[facility] LABCLIA [id number] [place] [address] CNOVSPon 05-24-2023 CNOVSP Normal [facility] Cancer Ag19-9 SerPl-aCncon 0 05-24-2023 Cancer Ag 19-9 Qn 1757.0 [arb'U]/mL High <36.0 [facility] Comment on above: Order Comment: Speci men Type: BLOOD SPECIMENOrdering Facility: [facility] Address: [address] [place] [address] Result Comment: [facility] er antigen 19-9 test is used as an aid in monitoring response to treatment or recurrence in patients with established pancreatic, hepatobiliary, or gastrointestinal malignancies. Clinical correlation is required.The CA 19-9 Antigen test was performed using the [facility] DXI paramagnetic particle chemiluminescent immunoassay method. Results obtained with different assay methods or kits cannot be used interchangeably. Performed By: #### 2 4108-3 ####[facility] LABCLIA [id number] [facility] [id number] [id number] [place] Comprehensive metabolic 2000 panelon 05-24-2023 Albumin [Mass/Vol] 4.3 g/dL Normal 3.9-4.9 [facility] Comment on above: Order Comment: Speci men Type: BLOOD SPECIMENOrdering Facility: [facility] Address: [address] [place] [address] Performed By: #### 2 4323-8 ####[facility] LABCLIA [id number] [place] [address] ALP [Catalytic activity/Vol] 127 U/L High 38-113 [facility] Comment on above: Order Comment: Speci men Type: BLOOD SPECIMENOrdering Facility: [facility] Address: [address] [place] [address] Performed By: #### 2 4323-8 ####[facility] LABCLIA [id number] [place] [address] ALT [Catalytic activity/Vol] 22 U/L Normal 10-54 [facility] Comment on above: Order Comment: Speci men Type: BLOOD SPECIMENOrdering Facility: [facility] Address: [address] [place] [address] Performed By: #### 2 4323-8 ####[facility] LABCLIA [id number] [place] [address] Anion gap [Moles/Vol] 9 mmol/L Normal 9-18 [facility] Comment on above: Order Comment: Speci men Type: BLOOD SPECIMENOrdering Facility: [facility] Address: [address] [place] [address] Performed By: #### 2 4323-8 ####[facility] LABCLIA [id number] [place] [address] AST [Catalytic activity/Vol] 20 U/L Normal 14-40 [facility] Comment on above: Order Comment: Speci men Type: BLOOD SPECIMENOrdering Facility: [facility] Address: [address] [place] [address] Performed By: #### 2 4323-8 ####[facility] LABCLIA [id number] [place] [address] Bilirubin [Mass/Vol] 1.3 mg/dL Normal 0.2-1.3 [facility] Comment on above: Order Comment: Speci men Type: BLOOD SPECIMENOrdering Facility: [facility] Address: [address] [place] [address] Performed By: #### 2 4323-8 ####[facility] LABCLIA [id number] [place] [address] Calcium [Mass/Vol] 10.8 mg/dL High 8.5-10.2 [facility] Comment on above: Order Comment: Speci men Type: BLOOD SPECIMENOrdering Facility: [facility] Address: [address] [place] [address] Performed By: #### 2 4323-8 ####[facility] LABCLIA [id number] [place] [address] Chloride [Moles/Vol] 101 mmol/L Normal 97-105 [facility] Comment on above: Order Comment: Speci men Type: BLOOD SPECIMENOrdering Facility: [facility] Address: [address] [place] [address] Performed By: #### 2 4323-8 ####[facility] LABCLIA [id number] [place] [address] CO2 [Moles/Vol] 25 mmol/L Normal 22-30 [facility] Comment on above: Order Comment: Speci men Type: BLOOD SPECIMENOrdering Facility: [facility] Address: [address] [place] [address] Performed By: #### 2 4323-8 ####[facility] LABCLIA [id number] [place] [address] Creatinine [Mass/Vol] 0.84 mg/dL Normal 0.73-1.22 [facility] Comment on above: Order Comment: Speci men Type: BLOOD SPECIMENOrdering Facility: [facility] Address: [address] [place] [address] Performed By: #### 2 4323-8 ####[facility] LABCLIA [id number] [place] [address] Creatinine and Glomerular filtration rate.predicted panel (S/P/Bld) 93 mL/min/1.73m??? Normal >=60 [facility] Comment on above: Order Comment: Speci men Type: BLOOD SPECIMENOrdering Facility: [facility] Address: [address] [place] [address] Result Comment: Kathy mated Glomerular Filtration Rate [...] actual GFR. Performed By: #### 2 4323-8 ####[facility] LABCLIA [id number] [place] [address] Glucose [Mass/Vol] 129 mg/dL High 74-99 [facility] Comment on above: Order Comment: Speci men Type: BLOOD SPECIMENOrdering Facility: [facility] Address: [address] [place] [address] Result Comment: The [place] [employer] (ADA) provides guidance for cutoff [...] Standards of Medical Care in Diabetes 2016, [place] [employer]. Diabetes Care. 2016.39(Suppl 1). Performed By: #### 2 4323-8 ####[facility] LABCLIA [id number] [place] [address] Potassium [Moles/Vol] 4.0 mmol/L Normal 3.7-5.1 [facility] Comment on above: Order Comment: Speci men Type: BLOOD SPECIMENOrdering Facility: [facility] Address: [address] [place] [address] Performed By: #### 2 4323-8 ####[facility] LABCLIA [id number] [place] [address] Protein [Mass/Vol] 7.2 g/dL Normal 6.3-8.0 [facility] Comment on above: Order Comment: Speci men Type: BLOOD SPECIMENOrdering Facility: [facility] Address: [address] [place] [address] Performed By: #### 2 4323-8 ####[facility] LABCLIA [id number] [place] [address] Sodium [Moles/Vol] 135 mmol/L Low 136-144 [facility] Comment on above: Order Comment: Speci men Type: BLOOD SPECIMENOrdering Facility: [facility] Address: [address] [place] [address] Performed By: #### 2 4323-8 ####[facility] LABCLIA [id number] [place] [address] Urea nitrogen [Mass/Vol] 20 mg/dL Normal 9-24 [facility] Comment on above: Order Comment: Speci men Type: BLOOD SPECIMENOrdering Facility: [facility] Address: [address] [place] [address] Performed By: #### 2 4323-8 ####[facility] LABCLIA [id number] [place] [address] CREATININE BLDon 05-18-2023 Creatinine [Mass/Vol] 0.80 mg/dL Normal 0.73-1.22 [facility] Comment on above: Order Comment: Speci men Type: BLOOD SPECIMENOrdering Facility: [facility] Address: [address] [place] [address] Performed By: #### C RET1 ####[facility] LABCLIA [id number] [place] [address] Creatinine and Glomerular filtration rate.predicted panel (S/P/Bld) 94 mL/min/1.73m??? Normal >=60 [facility] Comment on above: Order Comment: Speci men Type: BLOOD SPECIMENOrdering Facility: [facility] Address: [address] [place] [address] Result Comment: Kathy mated Glomerular Filtration Rate [...] actual GFR. Performed By: #### C RET1 ####[facility] LABCLIA [id number] [place] [address] CT ABD/PEL W IVCONon 023 CT ABD/PEL W IVCON Normal [facility] CT Abdomen and Pelvis W cont [...] any questions regarding this interpretation, please call [phone]. If you are unable to reach us at the number above, please feel free to contact [facility]Radiology at [phone]. DIVISION OF RADIOLOGY * * *Final Report* * * DATE OF EXAM: May 18 2023 11:17AM [facility] 0530 - CT ABD/PEL W IVCON / [...] when it measured 4.9 x 3.4 cm. Disposal Worker Mesentery/Peritoneum: Soft tissue implant anterior to [...] chest CT performed will be reported separately. Disposal Worker (topogram) images: No additional findings. DIVISION OF RADIOLOGY Provider, [facility] - 05/18/2023 * * *Final Report* * * DATE OF EXAM: May 18 2023 11:17AM [facility] 0530 - CT ABD/PEL W IVCON / [...] when it measured 4.9 x 3.4 cm. Disposal Worker Mesentery/Peritoneum: Soft tissue implant anterior to [...] chest CT performed will be reported separately. Disposal Worker (topogram) images: No additional findings. IMPRESSION [...] any questions regarding this interpretation, please call [phone]. If you are unable to reach us at the number above, please feel free to contact [facility]iology at [phone]. [facility] CT CHEST W IVCONon 3 CT CHEST W IVCON Normal [facility] CT Chest W contrast [place] IMPRESSION: [...] any questions regarding this interpretation, please call [phone]. If you are unable to reach us at the number above, please feel free to contact [facility] at [phone]. DIVISION OF RADIOLOGY * * *Final Report* * * DATE OF EXAM: May 18 2023 11:17AM [facility] 0539 - CT CHEST W IVCON / [...] was performed and will be reported separately. Disposal Worker (topogram) images: No additional findings. DIVISION OF RADIOLOGY Provider, [facility] - 05/18/2023 * * *Final Report* * * DATE OF EXAM: May 18 2023 11:17AM [facility] 0539 - CT CHEST W IVCON / [...] was performed and will be reported separately. Disposal Worker (topogram) images: No additional findings. IMPRESSION [...] any questions regarding this interpretation, please call [phone]. If you are unable to reach us at the number above, please feel free to contact [facility] at [phone]. [facility] CT Chest W contrast IVOrdere d By: Ccmichele Provider on 05-18-2023 [facility] Laboratory - Chemistry and C hemistry - challengeOrdered By: Elizabeth Yu on 05-18-2023 Creatinine [Mass/Vol] 0.80 mg/dL 0.73 - 1.22 mg/dL [facility] GFR/1.73 sq M.predicted among non-blacks MDRD (S/P/Bld) [Vol rate/Area] 94 mL/min/{1.73_m2} - PINF [facility] Comment on above: Estimated Glomerular Filtration [...] Interpretation and review of laboratory results Normal [facility] No Panel Informationon 05-18 Radiology Study observation (narrative) [facility] CBC W Auto Differential pane l (Bld)on 05-12-2023 Basophils (Bld) [#/Vol] 0.03 10*3/uL Normal <0.11 [facility] Comment on above: Order Comment: Speci men Type: BLOOD SPECIMENOrdering Facility: [facility] Address: [address] [place] [address] Performed By: #### 5 7021-8 ####[facility] LABCLIA [id number] [place] [address] Basophils/100 WBC (Bld) 0.5 % Normal [facility] Comment on above: Order Comment: Speci men Type: BLOOD SPECIMENOrdering Facility: [facility] Address: [address] [place] [address] Performed By: #### 5 7021-8 ####[facility] LABCLIA [id number] [place] [address] Differential cell count method Nom (Bld) Auto Normal [facility] Comment on above: Order Comment: Speci men Type: BLOOD SPECIMENOrdering Facility: [facility] Address: [address] [place] [address] Performed By: #### 5 7021-8 ####[facility] LABCLIA [id number] [place] [address] Eosinophils (Bld) [#/Vol] 10*3/uL Normal <0.46 [facility] Comment on above: Order Comment: Speci men Type: BLOOD SPECIMENOrdering Facility: [facility] Address: [address] [place] [address] Performed By: #### 5 7021-8 ####[facility] LABCLIA [id number] [place] [address] Eosinophils/100 WBC (Bld) 0.4 % Normal [facility] Comment on above: Order Comment: Speci men Type: BLOOD SPECIMENOrdering Facility: [facility] Address: [address] [place] [address] Performed By: #### 5 7021-8 ####[facility] LABCLIA [id number] [place] [address] Erythrocyte distribution width (RBC) [Ratio] 17.2 % High 11.5-15.0 [facility] Comment on above: Order Comment: Speci men Type: BLOOD SPECIMENOrdering Facility: [facility] Address: [address] [place] [address] Performed By: #### 5 7021-8 ####[facility] LABCLIA [id number] [place] [address] Hematocrit (Bld) [Volume fraction] 29.8 % Low 39.0-51.0 [facility] Comment on above: Order Comment: Speci men Type: BLOOD SPECIMENOrdering Facility: [facility] Address: [address] [place] [address] Performed By: #### 5 7021-8 ####[facility] LABCLIA [id number] [place] [address] Hemoglobin (Bld) [Mass/Vol] 9.8 g/dL Low 13.0-17.0 [facility] Comment on above: Order Comment: Speci men Type: BLOOD SPECIMENOrdering Facility: [facility] Address: [address] [place] [address] Performed By: #### 5 7021-8 ####[facility] LABCLIA [id number] [place] [address] Immature granulocytes (Bld) [#/Vol] 10*3/uL Normal <0.10 [facility] Comment on above: Order Comment: Speci men Type: BLOOD SPECIMENOrdering Facility: [facility] Address: [address] [place] [address] Performed By: #### 5 7021-8 ####[facility] LABCLIA [id number] [place] [address] Immature granulocytes/100 WBC (Bld) 0.4 % Normal [facility] Comment on above: Order Comment: Speci men Type: BLOOD SPECIMENOrdering Facility: [facility] Address: [address] [place] [address] Performed By: #### 5 7021-8 ####[facility] LABCLIA [id number] [place] [address] Lymphocytes (Bld) [#/Vol] 1.83 10*3/uL Normal 1.00-4.00 [facility] Comment on above: Order Comment: Speci men Type: BLOOD SPECIMENOrdering Facility: [facility] Address: [address] [place] [address] Performed By: #### 5 7021-8 ####[facility] LABCLIA [id number] [place] [address] Lymphocytes/100 WBC (Bld) 33.0 % Normal [facility] Comment on above: Order Comment: Speci men Type: BLOOD SPECIMENOrdering Facility: [facility] Address: [address] [place] [address] Performed By: #### 5 7021-8 ####[facility] LABCLIA [id number] [place] [address] MCH (RBC) [Entitic mass] 31.5 pg Normal 26.0-34.0 [facility] Comment on above: Order Comment: Speci men Type: BLOOD SPECIMENOrdering Facility: [facility] Address: [address] [place] [address] Performed By: #### 5 7021-8 ####[facility] LABCLIA [id number] [place] [address] MCHC (RBC) [Mass/Vol] 32.9 g/dL Normal 30.5-36.0 [facility] Comment on above: Order Comment: Speci men Type: BLOOD SPECIMENOrdering Facility: [facility] Address: [address] [place] [address] Performed By: #### 5 7021-8 ####[facility] LABCLIA [id number] [place] [address] MCV (RBC) [Entitic vol] 95.8 fL Normal 80.0-100.0 [facility] Comment on above: Order Comment: Speci men Type: BLOOD SPECIMENOrdering Facility: [facility] Address: [address] [place] [address] Performed By: #### 5 7021-8 ####[facility] LABCLIA [id number] [place] [address] Monocytes (Bld) [#/Vol] 0.40 10*3/uL Normal <0.87 [facility] Comment on above: Order Comment: Speci men Type: BLOOD SPECIMENOrdering Facility: [facility] Address: [address] [place] [address] Performed By: #### 5 7021-8 ####[facility] LABCLIA [id number] [place] [address] Monocytes/100 WBC (Bld) 7.2 % Normal [facility] Comment on above: Order Comment: Speci men Type: BLOOD SPECIMENOrdering Facility: [facility] Address: [address] [place] [address] Performed By: #### 5 7021-8 ####[facility] LABIA [id number] [place] [address] Neutrophils (Bld) [#/Vol] 3.24 10*3/uL Normal 1.45-7.50 [facility] Comment on above: Order Comment: Speci men Type: BLOOD SPECIMENOrdering Facility: [facility] Address: [address] [place] [address] Performed By: #### 5 7021-8 ####[facility] LABCLIA [id number] [place] [address] Neutrophils/100 WBC (Bld) 58.5 % Normal [facility] Comment on above: Order Comment: Speci men Type: BLOOD SPECIMENOrdering Facility: [facility] Address: [address] [place] [address] Performed By: #### 5 7021-8 ####[facility] LABCLIA [id number] [place] [address] Nucleated RBC (Bld) [#/Vol] 10*3/uL Normal <0.01 [facility] Comment on above: Order Comment: Speci men Type: BLOOD SPECIMENOrdering Facility: [facility] Address: [address] [place] [address] Performed By: #### 5 7021-8 ####[facility] LABCLIA [id number] [place] [address] Nucleated RBC/100 WBC (Bld) [Ratio] 0.0 /100 WBC Normal [facility] Comment on above: Order Comment: Speci men Type: BLOOD SPECIMENOrdering Facility: [facility] Address: [address] [place] [address] Performed By: #### 5 7021-8 ####[facility] LABCLIA [id number] [place] [address] Platelet mean volume (Bld) [Entitic vol] 10.2 fL Normal 9.0-12.7 [facility] Comment on above: Order Comment: Speci men Type: BLOOD SPECIMENOrdering Facility: [facility] Address: [address] [place] [address] Performed By: #### 5 7021-8 ####[facility] LABCLIA [id number] [place] [address] Platelets (Bld) [#/Vol] 186 10*3/uL Normal 150-400 [facility] Comment on above: Order Comment: Speci men Type: BLOOD SPECIMENOrdering Facility: [facility] Address: [address] [place] [address] Performed By: #### 5 7021-8 ####[facility] LABCLIA [id number] [place] [address] RBC (Bld) [#/Vol] 3.11 10*6/uL Low 4.20-6.00 [facility] Comment on above: Order Comment: Speci men Type: BLOOD SPECIMENOrdering Facility: [facility] Address: [address] [place] [address] Performed By: #### 5 7021-8 ####[facility] LABIA [id number] [place] [address] WBC (Bld) [#/Vol] 5.54 10*3/uL Normal 3.70-11.00 [facility] Comment on above: Order Comment: Speci men Type: BLOOD SPECIMENOrdering Facility: [facility] Address: [address] [place] [address] Performed By: #### 5 7021-8 ####[facility] LABIA [id number] [place] [address] CNOVSPon 05-12-2023 CNOVSP Normal [facility] Comprehensive metabolic 2000 panelon 05-12-2023 Albumin [Mass/Vol] 4.1 g/dL Normal 3.9-4.9 [facility] Comment on above: Order Comment: Speci men Type: BLOOD SPECIMENOrdering Facility: [facility] Address: [address] [place] [address] Performed By: #### 2 4323-8 ####[facility] LABIA [id number] [place] [address] ALP [Catalytic activity/Vol] 116 U/L High 38-113 [facility] Comment on above: Order Comment: Speci men Type: BLOOD SPECIMENOrdering Facility: [facility] Address: [address] [place] [address] Performed By: #### 2 4323-8 ####[facility] LABCLIA [id number] [place] [address] ALT [Catalytic activity/Vol] 32 U/L Normal 10-54 [facility] Comment on above: Order Comment: Speci men Type: BLOOD SPECIMENOrdering Facility: [facility] Address: [address] [place] [address] Performed By: #### 2 4323-8 ####[facility] LABCLIA [id number] [place] [address] Anion gap [Moles/Vol] 8 mmol/L Low 9-18 [facility] Comment on above: Order Comment: Speci men Type: BLOOD SPECIMENOrdering Facility: [facility] Address: [address] [place] [address] Performed By: #### 2 4323-8 ####[facility] LABCLIA [id number] [place] [address] AST [Catalytic activity/Vol] 24 U/L Normal 14-40 [facility] Comment on above: Order Comment: Speci men Type: BLOOD SPECIMENOrdering Facility: [facility] Address: [address] [place] [address] Performed By: #### 2 4323-8 ####[facility] LABCLIA [id number] [place] [address] Bilirubin [Mass/Vol] 1.2 mg/dL Normal 0.2-1.3 [facility] Comment on above: Order Comment: Speci men Type: BLOOD SPECIMENOrdering Facility: [facility] Address: [address] [place] [address] Performed By: #### 2 4323-8 ####[facility] LABCLIA [id number] [place] [address] Calcium [Mass/Vol] 10.9 mg/dL High 8.5-10.2 [facility] Comment on above: Order Comment: Speci men Type: BLOOD SPECIMENOrdering Facility: [facility] Address: [address] [place] [address] Performed By: #### 2 4323-8 ####[facility] LABCLIA [id number] [place] [address] Chloride [Moles/Vol] 104 mmol/L Normal 97-105 [facility] Comment on above: Order Comment: Speci men Type: BLOOD SPECIMENOrdering Facility: [facility] Address: [address] [place] [address] Performed By: #### 2 4323-8 ####[facility] LABCLIA [id number] [place] [address] CO2 [Moles/Vol] 26 mmol/L Normal 22-30 [facility] Comment on above: Order Comment: Speci men Type: BLOOD SPECIMENOrdering Facility: [facility] Address: [address] [place] [address] Performed By: #### 2 4323-8 ####[facility] LABCLIA [id number] [place] [address] Creatinine [Mass/Vol] 0.75 mg/dL Normal 0.73-1.22 [facility] Comment on above: Order Comment: Speci men Type: BLOOD SPECIMENOrdering Facility: [facility] Address: [address] [place] [address] Performed By: #### 2 4323-8 ####[facility] LABCLIA [id number] [place] [address] Creatinine and Glomerular filtration rate.predicted panel (S/P/Bld) 96 mL/min/1.73m??? Normal >=60 [facility] Comment on above: Order Comment: Speci men Type: BLOOD SPECIMENOrdering Facility: [facility] Address: [address] [place] [address] Result Comment: Kathy mated Glomerular Filtration Rate [...] actual GFR. Performed By: #### 2 4323-8 ####[facility] LABCLIA [id number] [place] [address] Glucose [Mass/Vol] 152 mg/dL High 74-99 [facility] Comment on above: Order Comment: Speci men Type: BLOOD SPECIMENOrdering Facility: [facility] Address: [address] [place] [address] Result Comment: The [place] [employer] (ADA) provides guidance for cutoff [...] Standards of Medical Care in Diabetes 2016, [place] [employer]. Diabetes Care. 2016.39(Suppl 1). Performed By: #### 2 4323-8 ####[facility] LABCLIA [id number] [place] [address] Potassium [Moles/Vol] 4.1 mmol/L Normal 3.7-5.1 [facility] Comment on above: Order Comment: Speci men Type: BLOOD SPECIMENOrdering Facility: [facility] Address: [address] [place] [address] Performed By: #### 2 4323-8 ####[facility] LABCLIA [id number] [place] [address] Protein [Mass/Vol] 7.1 g/dL Normal 6.3-8.0 [facility] Comment on above: Order Comment: Speci men Type: BLOOD SPECIMENOrdering Facility: [facility] Address: [address] [place] [address] Performed By: #### 2 4323-8 ####[facility] LABCLIA [id number] [place] [address] Sodium [Moles/Vol] 138 mmol/L Normal 136-144 [facility] Comment on above: Order Comment: Speci men Type: BLOOD SPECIMENOrdering Facility: [facility] Address: [address] [place] [address] Performed By: #### 2 4323-8 ####[facility] LABCLIA [id number] [place] [address] Urea nitrogen [Mass/Vol] 16 mg/dL Normal 9-24 [facility] Comment on above: Order Comment: Speci men Type: BLOOD SPECIMENOrdering Facility: [facility] Address: [address] [place] [address] Performed By: #### 2 4323-8 ####[facility] LABCLIA [id number] [place] [address] CNPNon 05-08-2023 CNPN Normal [facility] CBC W Auto Differential pane l (Bld)on 05-05-2023 Basophils (Bld) [#/Vol] 0.05 10*3/uL <0.11 k/uL [facility] Basophils/100 WBC (Bld) 0.3 % [facility] Differential cell count method Nom (Bld) Auto [facility] Eosinophils (Bld) [#/Vol] 0.04 10*3/uL <0.46 k/uL [facility] Eosinophils/100 WBC (Bld) 0.3 % [facility] Erythrocyte distribution width (RBC) [Ratio] 17.2 % High 11.5 - 15.0 % [facility] Hematocrit (Bld) [Volume fraction] 36.8 % Low 39.0 - 51.0 % [facility] Hemoglobin (Bld) [Mass/Vol] 12.0 g/dL Low 13.0 - 17.0 g/dL [facility] Immature granulocytes (Bld) [#/Vol] 0.07 10*3/uL <0.10 k/uL [facility] Immature granulocytes/100 WBC (Bld) 0.5 % [facility] Lymphocytes (Bld) [#/Vol] 2.10 10*3/uL 1.00 - 4.00 k/uL [facility] Lymphocytes/100 WBC (Bld) 14.4 % [facility] MCH (RBC) [Entitic mass] 31.4 pg 26.0 - 34.0 pg [facility] MCHC (RBC) [Mass/Vol] 32.6 g/dL 30.5 - 36.0 g/dL [facility] MCV (RBC) [Entitic vol] 96.3 fL 80.0 - 100.0 fL [facility] Monocytes (Bld) [#/Vol] 1.12 10*3/uL High <0.87 k/uL [facility] Monocytes/100 WBC (Bld) 7.7 % [facility] Neutrophils (Bld) [#/Vol] 11.22 10*3/uL High 1.45 - 7.50 k/uL [facility] Neutrophils/100 WBC (Bld) 76.8 % [facility] Nucleated RBC (Bld) [#/Vol] <0.01 k/uL [facility] Nucleated RBC/100 WBC (Bld) [Ratio] 0.0 /100 WBC [facility] Platelet mean volume (Bld) [Entitic vol] 10.2 fL 9.0 - 12.7 fL [facility] Platelets (Bld) [#/Vol] 376 10*3/uL 150 - 400 k/uL [facility] RBC (Bld) [#/Vol] 3.82 10*6/uL Low 4.20 - 6.0 0 m/uL [facility] WBC (Bld) [#/Vol] 14.60 10*3/uL High 3.70 - 11.00 k/uL [facility] Basophils (Bld) [#/Vol] 0.05 10*3/uL Normal <0.11 [facility] Comment on above: Order Comment: Speci men Type: BLOOD SPECIMENOrdering Facility: [facility] Address: [address] [place], [place] [address] Performed By: #### 5 7021-8 ####[facility] LABCLIA [id number] [place] [address] Basophils/100 WBC (Bld) 0.3 % Normal [facility] Comment on above: Order Comment: Speci men Type: BLOOD SPECIMENOrdering Facility: [facility] Address: [address] [place] [address] Performed By: #### 5 7021-8 ####[facility] LABCLIA [id number] [place] [address] Differential cell count method Nom (Bld) Auto Normal [facility] Comment on above: Order Comment: Speci men Type: BLOOD SPECIMENOrdering Facility: [facility] Address: [address] [place] [address] Performed By: #### 5 7021-8 ####[facility] LABCLIA [id number] [place] [address] Eosinophils (Bld) [#/Vol] 0.04 10*3/uL Normal <0.46 [facility] Comment on above: Order Comment: Speci men Type: BLOOD SPECIMENOrdering Facility: [facility] Address: [address] [place] [address] Performed By: #### 5 7021-8 ####[facility] LABCLIA [id number] [place] [address] Eosinophils/100 WBC (Bld) 0.3 % Normal [facility] Comment on above: Order Comment: Speci men Type: BLOOD SPECIMENOrdering Facility: [facility] Address: [address] [place] [address] Performed By: #### 5 7021-8 ####[facility] LABCLIA [id number] [place] [address] Erythrocyte distribution width (RBC) [Ratio] 17.2 % High 11.5-15.0 [facility] Comment on above: Order Comment: Speci men Type: BLOOD SPECIMENOrdering Facility: [facility] Address: [address] [place] [address] Performed By: #### 5 7021-8 ####[facility] LABCLIA [id number] [place] [address] Hematocrit (Bld) [Volume fraction] 36.8 % Low 39.0-51.0 [facility] Comment on above: Order Comment: Speci men Type: BLOOD SPECIMENOrdering Facility: [facility] Address: [address] [place] [address] Performed By: #### 5 7021-8 ####[facility] LABCLIA [id number] [place] [address] Hemoglobin (Bld) [Mass/Vol] 12.0 g/dL Low 13.0-17.0 [facility] Comment on above: Order Comment: Speci men Type: BLOOD SPECIMENOrdering Facility: [facility] Address: [address] [place] [address] Performed By: #### 5 7021-8 ####[facility] LABCLIA [id number] [place] [address] Immature granulocytes (Bld) [#/Vol] 0.07 10*3/uL Normal <0.10 [facility] Comment on above: Order Comment: Speci men Type: BLOOD SPECIMENOrdering Facility: [facility] Address: [address] [place] [address] Performed By: #### 5 7021-8 ####[facility] LABCLIA [id number] [place] [address] Immature granulocytes/100 WBC (Bld) 0.5 % Normal [facility] Comment on above: Order Comment: Speci men Type: BLOOD SPECIMENOrdering Facility: [facility] Address: [address] [place] [address] Performed By: #### 5 7021-8 ####[facility] LABCLIA [id number] [place] [address] Lymphocytes (Bld) [#/Vol] 2.10 10*3/uL Normal 1.00-4.00 [facility] Comment on above: Order Comment: Speci men Type: BLOOD SPECIMENOrdering Facility: [facility] Address: [address] [place] [address] Performed By: #### 5 7021-8 ####[facility] LABCLIA [id number] [place] [address] Lymphocytes/100 WBC (Bld) 14.4 % Normal [facility] Comment on above: Order Comment: Speci men Type: BLOOD SPECIMENOrdering Facility: [facility] Address: [address] [place] [address] Performed By: #### 5 7021-8 ####[facility] LABCLIA [id number] [place] [address] MCH (RBC) [Entitic mass] 31.4 pg Normal 26.0-34.0 [facility] Comment on above: Order Comment: Speci men Type: BLOOD SPECIMENOrdering Facility: [facility] Address: [address] [place] [address] Performed By: #### 5 7021-8 ####[facility] LABCLIA [id number] [place] [address] MCHC (RBC) [Mass/Vol] 32.6 g/dL Normal 30.5-36.0 [facility] Comment on above: Order Comment: Speci men Type: BLOOD SPECIMENOrdering Facility: [facility] Address: [address] [place] [address] Performed By: #### 5 7021-8 ####[facility] LABCLIA [id number] [place] [address] MCV (RBC) [Entitic vol] 96.3 fL Normal 80.0-100.0 [facility] Comment on above: Order Comment: Speci men Type: BLOOD SPECIMENOrdering Facility: [facility] Address: [address] [place] [address] Performed By: #### 5 7021-8 ####[facility] LABCLIA [id number] [place] [address] Monocytes (Bld) [#/Vol] 1.12 10*3/uL High <0.87 [facility] Comment on above: Order Comment: Speci men Type: BLOOD SPECIMENOrdering Facility: [facility] Address: [address] [place] [address] Performed By: #### 5 7021-8 ####[facility] LABCLIA [id number] [place] [address] Monocytes/100 WBC (Bld) 7.7 % Normal [facility] Comment on above: Order Comment: Speci men Type: BLOOD SPECIMENOrdering Facility: [facility] Address: [address] [place] [address] Performed By: #### 5 7021-8 ####[facility] LABCLIA [id number] [place] [address] Neutrophils (Bld) [#/Vol] 11.22 10*3/uL High 1.45-7.50 [facility] Comment on above: Order Comment: Speci men Type: BLOOD SPECIMENOrdering Facility: [facility] Address: [address] [place] [address] Performed By: #### 5 7021-8 ####[facility] LABCLIA [id number] [place] [address] Neutrophils/100 WBC (Bld) 76.8 % Normal [facility] Comment on above: Order Comment: Speci men Type: BLOOD SPECIMENOrdering Facility: [facility] Address: [address] [place] [address] Performed By: #### 5 7021-8 ####[facility] LABCLIA [id number] [place] [address] Nucleated RBC (Bld) [#/Vol] 10*3/uL Normal <0.01 [facility] Comment on above: Order Comment: Speci men Type: BLOOD SPECIMENOrdering Facility: [facility] Address: [address] [place] [address] Performed By: #### 5 7021-8 ####[facility] LABCLIA [id number] [place] [address] Nucleated RBC/100 WBC (Bld) [Ratio] 0.0 /100 WBC Normal [facility] Comment on above: Order Comment: Speci men Type: BLOOD SPECIMENOrdering Facility: [facility] Address: [address] [place] [address] Performed By: #### 5 7021-8 ####[facility] LABCLIA [id number] [place] [address] Platelet mean volume (Bld) [Entitic vol] 10.2 fL Normal 9.0-12.7 [facility] Comment on above: Order Comment: Speci men Type: BLOOD SPECIMENOrdering Facility: [facility] Address: [address] [place] [address] Performed By: #### 5 7021-8 ####[facility] LABCLIA [id number] [place] [address] Platelets (Bld) [#/Vol] 376 10*3/uL Normal 150-400 [facility] Comment on above: Order Comment: Speci men Type: BLOOD SPECIMENOrdering Facility: [facility] Address: [address] [place] [address] Performed By: #### 5 7021-8 ####[facility] LABCLIA [id number] [place] [address] RBC (Bld) [#/Vol] 3.82 10*6/uL Low 4.20-6.00 [facility] Comment on above: Order Comment: Speci men Type: BLOOD SPECIMENOrdering Facility: [facility] Address: [address] [place] [address] Performed By: #### 5 7021-8 ####[facility] LABCLIA [id number] [place] [address] WBC (Bld) [#/Vol] 14.60 10*3/uL High 3.70-11.00 [facility] Comment on above: Order Comment: Speci men Type: BLOOD SPECIMENOrdering Facility: [facility] Address: [address] [place] [address] Performed By: #### 5 7021-8 ####[facility] LABCLIA [id number] [place] [address] CNOVSPon 05-05-2023 CNOVSP Normal [facility] Cancer Ag19-9 SerPl-aCncon 1 07-06-2022 Cancer Ag 19-9 Qn 2059.0 [arb'U]/mL High <36.0 [facility] Comment on above: Order Comment: Speci men Type: BLOOD SPECIMENOrdering Facility: [facility] Address: [place] [address] Result Comment: [facility] er antigen 19-9 test is used as an aid in monitoring response to treatment or recurrence in patients with established pancreatic, hepatobiliary, or gastrointestinal malignancies. Clinical correlation is required.The CA 19-9 Antigen test was performed using the [employer] DXI paramagnetic particle chemiluminescent immunoassay method. Results obtained with different assay methods or kits cannot be used interchangeably. Performed By: #### 2 4108-3 ####[facility] LABCLIA [id number] [place] [id number] [place] Comprehensive metabolic 2000 panelon 05-05-2023 Albumin [Mass/Vol] 4.3 g/dL 3.9 - 4.9 g/dL [facility] ALP [Catalytic activity/Vol] 131 U/L High 38 - 113 U/L [facility] ALT [Catalytic activity/Vol] 26 U/L 10 - 54 U/L [facility] Anion gap [Moles/Vol] 10 mmol/L 9 - 18 mmol/L [facility] AST [Catalytic activity/Vol] 28 U/L 14 - 40 U/L [facility] Bilirubin [Mass/Vol] 1.3 mg/dL 0.2 - 1 .3 mg/dL [facility] Calcium [Mass/Vol] 11.1 mg/dL High 8.5 - 10. 2 mg/dL [facility] Chloride [Moles/Vol] 101 mmol/L 97 - 10 5 mmol/L [facility] CO2 [Moles/Vol] 24 mmol/L 22 - 30 mmol/L [facility] Creatinine [Mass/Vol] 0.87 mg/dL 0.73 - 1.22 mg/dL [facility] Estimated Glomerular Filtration Rate 92 mL/min/1.73m >=60 mL/min/1.73 m [facility] Glucose [Mass/Vol] 154 mg/dL High 74 - 99 mg/dL [facility] Potassium [Moles/Vol] 4.3 mmol/L 3.7 - 5.1 mmol/L [facility] Protein [Mass/Vol] 7.5 g/dL 6.3 - 8.0 g/dL [facility] Sodium [Moles/Vol] 135 mmol/L Low 136 - 144 mmol/L [facility] Urea nitrogen [Mass/Vol] 19 mg/dL 9 - 24 mg/dL [facility] Albumin [Mass/Vol] 4.3 g/dL Normal 3.9-4.9 [facility] Comment on above: Order Comment: Speci men Type: BLOOD SPECIMENOrdering Facility: [facility] Address: [address] [place] [address] Performed By: #### 2 4323-8 ####[facility] LABCLIA [id number] [place] [address] ALP [Catalytic activity/Vol] 131 U/L High 38-113 [facility] Comment on above: Order Comment: Speci men Type: BLOOD SPECIMENOrdering Facility: [facility] Address: [address] [place] [address] Performed By: #### 2 4323-8 ####[facility] LABCLIA [id number] [place] [address] ALT [Catalytic activity/Vol] 26 U/L Normal 10-54 [facility] Comment on above: Order Comment: Speci men Type: BLOOD SPECIMENOrdering Facility: [facility] Address: [address] [place] [address] Performed By: #### 2 4323-8 ####[facility] LABCLIA [id number] [place] [address] Anion gap [Moles/Vol] 10 mmol/L Normal 9-18 [facility] Comment on above: Order Comment: Speci men Type: BLOOD SPECIMENOrdering Facility: [facility] Address: [address] [place] [address] Performed By: #### 2 4323-8 ####[facility] LABCLIA [id number] [place] [address] AST [Catalytic activity/Vol] 28 U/L Normal 14-40 [facility] Comment on above: Order Comment: Speci men Type: BLOOD SPECIMENOrdering Facility: [facility] Address: [address] [place] [address] Performed By: #### 2 4323-8 ####[facility] LABCLIA [id number] [place] [address] Bilirubin [Mass/Vol] 1.3 mg/dL Normal 0.2-1.3 [facility] Comment on above: Order Comment: Speci men Type: BLOOD SPECIMENOrdering Facility: [facility] Address: [address] [place] [address] Performed By: #### 2 4323-8 ####[facility] LABCLIA [id number] [place] [address] Calcium [Mass/Vol] 11.1 mg/dL High 8.5-10.2 [facility] Comment on above: Order Comment: Speci men Type: BLOOD SPECIMENOrdering Facility: [facility] Address: [address] [place] [address] Performed By: #### 2 4323-8 ####[facility] LABCLIA [id number] [place] [address] Chloride [Moles/Vol] 101 mmol/L Normal 97-105 [facility] Comment on above: Order Comment: Speci men Type: BLOOD SPECIMENOrdering Facility: [facility] Address: [address] [place] [address] Performed By: #### 2 4323-8 ####[facility] LABCLIA [id number] [place] [address] CO2 [Moles/Vol] 24 mmol/L Normal 22-30 [facility] Comment on above: Order Comment: Speci men Type: BLOOD SPECIMENOrdering Facility: [facility] Address: [address] [place] [address] Performed By: #### 2 4323-8 ####[facility] LABCLIA [id number] [place] [address] Creatinine [Mass/Vol] 0.87 mg/dL Normal 0.73-1.22 [facility] Comment on above: Order Comment: Speci men Type: BLOOD SPECIMENOrdering Facility: [facility] Address: [address] [place] [address] Performed By: #### 2 4323-8 ####[facility] LABCLIA [id number] [place] [address] Creatinine and Glomerular filtration rate.predicted panel (S/P/Bld) 92 mL/min/1.73m??? Normal >=60 [facility] Comment on above: Order Comment: Speci men Type: BLOOD SPECIMENOrdering Facility: [facility] Address: [address] [place] [address] Result Comment: Kathy mated Glomerular Filtration Rate [...] actual GFR. Performed By: #### 2 4323-8 ####[facility] LABCLIA [id number] [place] [address] Glucose [Mass/Vol] 154 mg/dL High 74-99 [facility] Comment on above: Order Comment: Speci men Type: BLOOD SPECIMENOrdering Facility: [facility] Address: [address] [place] [id number] Result Comment: The [place] [employer] (ADA) provides guidance for cutoff [...] Standards of Medical Care in Diabetes 2016, [place] [employer]. Diabetes Care. 2016.39(Suppl 1). Performed By: #### 2 4323-8 ####[facility] LABCLIA [id number] [place] [address] Potassium [Moles/Vol] 4.3 mmol/L Normal 3.7-5.1 [facility] Comment on above: Order Comment: Speci men Type: BLOOD SPECIMENOrdering Facility: [facility] Address: [address] [place] [address] Performed By: #### 2 4323-8 ####[facility] LABCLIA [id number] [place] [address] Protein [Mass/Vol] 7.5 g/dL Normal 6.3-8.0 [facility] Comment on above: Order Comment: Speci men Type: BLOOD SPECIMENOrdering Facility: [facility] Address: [address] [place] [address] Performed By: #### 2 4323-8 ####[facility] LABCLIA [id number] [place] [address] Sodium [Moles/Vol] 135 mmol/L Low 136-144 [facility] Comment on above: Order Comment: Speci men Type: BLOOD SPECIMENOrdering Facility: [facility] Address: [address] [place] [address] Performed By: #### 2 4323-8 ####[facility] LABCLIA [id number] [place] [address] Urea nitrogen [Mass/Vol] 19 mg/dL Normal 9-24 [facility] Comment on above: Order Comment: Speci men Type: BLOOD SPECIMENOrdering Facility: [facility] Address: [address] [place], [place] [address] Performed By: #### 2 4323-8 ####[facility] LABCLIA [id number] [place] [address] CNPNon 2023 CNPN Normal [facility] CBC W Auto Differential pane l (Bld)on 04-05-2023 Basophils (Bld) [#/Vol] 0.05 10*3/uL <0.11 k/uL [facility] Basophils/100 WBC (Bld) 0.5 % [facility] Differential cell count method Nom (Bld) Auto [facility] Eosinophils (Bld) [#/Vol] <0.46 k/uL [facility] Eosinophils/100 WBC (Bld) 0.2 % [facility] Erythrocyte distribution width (RBC) [Ratio] 15.3 % High 11.5 - 15.0 % [facility] Hematocrit (Bld) [Volume fraction] 30.3 % Low 39.0 - 51.0 % [facility] Hemoglobin (Bld) [Mass/Vol] 10.0 g/dL Low 13.0 - 17.0 g/dL [facility] Immature granulocytes (Bld) [#/Vol] 0.04 10*3/uL <0.10 k/uL [facility] Immature granulocytes/100 WBC (Bld) 0.4 % [facility] Lymphocytes (Bld) [#/Vol] 1.63 10*3/uL 1.00 - 4.00 k/uL [facility] Lymphocytes/100 WBC (Bld) 15.5 % [facility] MCH (RBC) [Entitic mass] 32.3 pg 26.0 - 34.0 pg [facility] MCHC (RBC) [Mass/Vol] 33.0 g/dL 30.5 - 36.0 g/dL [facility] MCV (RBC) [Entitic vol] 97.7 fL 80.0 - 100.0 fL [facility] Monocytes (Bld) [#/Vol] 0.21 10*3/uL <0.87 k/uL [facility] Monocytes/100 WBC (Bld) 2.0 % [facility] Neutrophils (Bld) [#/Vol] 8.60 10*3/uL High 1.45 - 7.50 k/uL [facility] Neutrophils/100 WBC (Bld) 81.4 % [facility] Nucleated RBC (Bld) [#/Vol] <0.01 k/uL [facility] Nucleated RBC/100 WBC (Bld) [Ratio] 0.0 /100 WBC [facility] Platelet mean volume (Bld) [Entitic vol] 9.7 fL 9.0 - 12.7 fL [facility] Platelets (Bld) [#/Vol] 271 10*3/uL 150 - 400 k/uL [facility] RBC (Bld) [#/Vol] 3.10 10*6/uL Low 4.20 - 6.0 0 m/uL [facility] WBC (Bld) [#/Vol] 10.55 10*3/uL 3.70 - 11.00 k/uL [facility] Comprehensive metabolic 2000 panelon 04-05-2023 Albumin [Mass/Vol] 4.2 g/dL 3.9 - 4.9 g/dL [facility] ALP [Catalytic activity/Vol] 112 U/L 38 - 113 U/L [facility] ALT [Catalytic activity/Vol] 18 U/L 10 - 54 U/L [facility] Anion gap [Moles/Vol] 8 mmol/L Low 9 - 18 mmol/L [facility] AST [Catalytic activity/Vol] 21 U/L 14 - 40 U/L [facility] Bilirubin [Mass/Vol] 1.2 mg/dL 0.2 - 1 .3 mg/dL [facility] Calcium [Mass/Vol] 10.9 mg/dL High 8.5 - 10. 2 mg/dL [facility] Chloride [Moles/Vol] 101 mmol/L 97 - 10 5 mmol/L [facility] CO2 [Moles/Vol] 25 mmol/L 22 - 30 mmol/L [facility] Creatinine [Mass/Vol] 0.79 mg/dL 0.73 - 1.22 mg/dL [facility] Estimated Glomerular Filtration Rate 95 mL/min/1.73m >=60 mL/min/1.73 m [facility] Glucose [Mass/Vol] 122 mg/dL High 74 - 99 mg/dL [facility] Potassium [Moles/Vol] 4.1 mmol/L 3.7 - 5.1 mmol/L [facility] Protein [Mass/Vol] 7.1 g/dL 6.3 - 8.0 g/dL [facility] Sodium [Moles/Vol] 134 mmol/L Low 136 - 144 mmol/L [facility] Urea nitrogen [Mass/Vol] 21 mg/dL 9 - 24 mg/dL [facility] CBC W Auto Differential pane l (Bld)on 03-08-2023 Basophils (Bld) [#/Vol] 0.04 10*3/uL <0.11 k/uL [facility] Basophils/100 WBC (Bld) 0.9 % [facility] Differential cell count method Nom (Bld) Auto [facility] Eosinophils (Bld) [#/Vol] <0.46 k/uL [facility] Eosinophils/100 WBC (Bld) 0.2 % [facility] Erythrocyte distribution width (RBC) [Ratio] 14.8 % 11.5 - 15.0 % [facility] Hematocrit (Bld) [Volume fraction] 31.4 % Low 39.0 - 51.0 % [facility] Hemoglobin (Bld) [Mass/Vol] 10.2 g/dL Low 13.0 - 17.0 g/dL [facility] Immature granulocytes (Bld) [#/Vol] 0.05 10*3/uL <0.10 k/uL [facility] Immature granulocytes/100 WBC (Bld) 1.1 % [facility] Lymphocytes (Bld) [#/Vol] 1.26 10*3/uL 1.00 - 4.00 k/uL [facility] Lymphocytes/100 WBC (Bld) 28.8 % [facility] MCH (RBC) [Entitic mass] 32.4 pg 26.0 - 34.0 pg [facility] MCHC (RBC) [Mass/Vol] 32.5 g/dL 30.5 - 36.0 g/dL [facility] MCV (RBC) [Entitic vol] 99.7 fL 80.0 - 100.0 fL [facility] Monocytes (Bld) [#/Vol] 0.29 10*3/uL <0.87 k/uL [facility] Monocytes/100 WBC (Bld) 6.6 % [facility] Neutrophils (Bld) [#/Vol] 2.72 10*3/uL 1.45 - 7.50 k/uL [facility] Neutrophils/100 WBC (Bld) 62.4 % [facility] Nucleated RBC (Bld) [#/Vol] <0.01 k/uL [facility] Nucleated RBC/100 WBC (Bld) [Ratio] 0.0 /100 WBC [facility] Platelet mean volume (Bld) [Entitic vol] 9.9 fL 9.0 - 12.7 fL [facility] Platelets (Bld) [#/Vol] 236 10*3/uL 150 - 400 k/uL [facility] RBC (Bld) [#/Vol] 3.15 10*6/uL Low 4.20 - 6.0 0 m/uL [facility] WBC (Bld) [#/Vol] 4.37 10*3/uL 3.70 - 11.00 k/uL [facility] Comprehensive metabolic 2000 panelon 03-08-2023 Albumin [Mass/Vol] 4.2 g/dL 3.9 - 4.9 g/dL [facility] ALP [Catalytic activity/Vol] 128 U/L High 38 - 113 U/L [facility] ALT [Catalytic activity/Vol] 32 U/L 10 - 54 U/L [facility] Anion gap [Moles/Vol] 8 mmol/L Low 9 - 18 mmol/L [facility] AST [Catalytic activity/Vol] 26 U/L 14 - 40 U/L [facility] Bilirubin [Mass/Vol] 1.2 mg/dL 0.2 - 1 .3 mg/dL [facility] Calcium [Mass/Vol] 10.8 mg/dL High 8.5 - 10. 2 mg/dL [facility] Chloride [Moles/Vol] 103 mmol/L 97 - 10 5 mmol/L [facility] CO2 [Moles/Vol] 25 mmol/L 22 - 30 mmol/L [facility] Creatinine [Mass/Vol] 0.94 mg/dL 0.73 - 1.22 mg/dL [facility] Estimated Glomerular Filtration Rate 87 mL/min/1.73m >=60 mL/min/1.73 m [facility] Glucose [Mass/Vol] 138 mg/dL High 74 - 99 mg/dL [facility] Potassium [Moles/Vol] 4.2 mmol/L 3.7 - 5.1 mmol/L [facility] Protein [Mass/Vol] 7.0 g/dL 6.3 - 8.0 g/dL [facility] Sodium [Moles/Vol] 136 mmol/L 136 - 144 mmol/L [facility] Urea nitrogen [Mass/Vol] 15 mg/dL 9 - 24 mg/dL [facility] CBC W Auto Differential pane l (Bld)on 03-01-2023 Basophils (Bld) [#/Vol] 0.04 10*3/uL <0.11 k/uL [facility] Basophils/100 WBC (Bld) 0.5 % [facility] Differential cell count method Nom (Bld) Auto [facility] Eosinophils (Bld) [#/Vol] <0.46 k/uL [facility] Eosinophils/100 WBC (Bld) 0.2 % [facility] Erythrocyte distribution width (RBC) [Ratio] 15.6 % High 11.5 - 15.0 % [facility] Hematocrit (Bld) [Volume fraction] 37.3 % Low 39.0 - 51.0 % [facility] Hemoglobin (Bld) [Mass/Vol] 11.9 g/dL Low 13.0 - 17.0 g/dL [facility] Immature granulocytes (Bld) [#/Vol] 0.07 10*3/uL <0.10 k/uL [facility] Immature granulocytes/100 WBC (Bld) 0.9 % [facility] Lymphocytes (Bld) [#/Vol] 1.45 10*3/uL 1.00 - 4.00 k/uL [facility] Lymphocytes/100 WBC (Bld) 17.9 % [facility] MCH (RBC) [Entitic mass] 32.4 pg 26.0 - 34.0 pg [facility] MCHC (RBC) [Mass/Vol] 31.9 g/dL 30.5 - 36.0 g/dL [facility] MCV (RBC) [Entitic vol] 101.6 fL High 80.0 - 100.0 fL [facility] Monocytes (Bld) [#/Vol] 0.94 10*3/uL High <0.87 k/uL [facility] Monocytes/100 WBC (Bld) 11.6 % [facility] Neutrophils (Bld) [#/Vol] 5.58 10*3/uL 1.45 - 7.50 k/uL [facility] Neutrophils/100 WBC (Bld) 68.9 % [facility] Nucleated RBC (Bld) [#/Vol] <0.01 k/uL [facility] Nucleated RBC/100 WBC (Bld) [Ratio] 0.0 /100 WBC [facility] Platelet mean volume (Bld) [Entitic vol] 9.2 fL 9.0 - 12.7 fL [facility] Platelets (Bld) [#/Vol] 449 10*3/uL High 150 - 400 k/uL [facility] RBC (Bld) [#/Vol] 3.67 10*6/uL Low 4.20 - 6.0 0 m/uL [facility] WBC (Bld) [#/Vol] 8.10 10*3/uL 3.70 - 11.00 k/uL [facility] CBC W Auto Differential pane l (Bld)on 02-01-2023 Basophils (Bld) [#/Vol] <0.11 k/uL [facility] Basophils/100 WBC (Bld) 0.2 % [facility] Differential cell count method Nom (Bld) Auto [facility] Eosinophils (Bld) [#/Vol] <0.46 k/uL [facility] Eosinophils/100 WBC (Bld) 0.2 % [facility] Erythrocyte distribution width (RBC) [Ratio] 14.3 % 11.5 - 15.0 % [facility] Hematocrit (Bld) [Volume fraction] 35.3 % Low 39.0 - 51.0 % [facility] Hemoglobin (Bld) [Mass/Vol] 11.7 g/dL Low 13.0 - 17.0 g/dL [facility] Immature granulocytes (Bld) [#/Vol] 0.05 10*3/uL <0.10 k/uL [facility] Immature granulocytes/100 WBC (Bld) 0.4 % [facility] Lymphocytes (Bld) [#/Vol] 1.68 10*3/uL 1.00 - 4.00 k/uL [facility] Lymphocytes/100 WBC (Bld) 14.6 % [facility] MCH (RBC) [Entitic mass] 32.4 pg 26.0 - 34.0 pg [facility] MCHC (RBC) [Mass/Vol] 33.1 g/dL 30.5 - 36.0 g/dL [facility] MCV (RBC) [Entitic vol] 97.8 fL 80.0 - 100.0 fL [facility] Monocytes (Bld) [#/Vol] 0.70 10*3/uL <0.87 k/uL [facility] Monocytes/100 WBC (Bld) 6.1 % [facility] Neutrophils (Bld) [#/Vol] 9.04 10*3/uL High 1.45 - 7.50 k/uL [facility] Neutrophils/100 WBC (Bld) 78.5 % [facility] Nucleated RBC (Bld) [#/Vol] <0.01 k/uL [facility] Nucleated RBC/100 WBC (Bld) [Ratio] 0.0 /100 WBC [facility] Platelet mean volume (Bld) [Entitic vol] 10.1 fL 9.0 - 12.7 fL [facility] Platelets (Bld) [#/Vol] 267 10*3/uL 150 - 400 k/uL [facility] RBC (Bld) [#/Vol] 3.61 10*6/uL Low 4.20 - 6.0 0 m/uL [facility] WBC (Bld) [#/Vol] 11.51 10*3/uL High 3.70 - 11.00 k/uL [facility] Comprehensive metabolic 2000 panelon 02-01-2023 Albumin [Mass/Vol] 4.2 g/dL 3.9 - 4.9 g/dL [facility] ALP [Catalytic activity/Vol] 139 U/L High 38 - 113 U/L [facility] ALT [Catalytic activity/Vol] 23 U/L 10 - 54 U/L [facility] Anion gap [Moles/Vol] 11 mmol/L 9 - 18 mmol/L [facility] AST [Catalytic activity/Vol] 19 U/L 14 - 40 U/L [facility] Bilirubin [Mass/Vol] 1.3 mg/dL 0.2 - 1 .3 mg/dL [facility] Calcium [Mass/Vol] 10.7 mg/dL High 8.5 - 10. 2 mg/dL [facility] Chloride [Moles/Vol] 102 mmol/L 97 - 10 5 mmol/L [facility] CO2 [Moles/Vol] 23 mmol/L 22 - 30 mmol/L [facility] Creatinine [Mass/Vol] 0.97 mg/dL 0.73 - 1.22 mg/dL [facility] Estimated Glomerular Filtration Rate 83 mL/min/1.73m >=60 mL/min/1.73 m [facility] Glucose [Mass/Vol] 172 mg/dL High 74 - 99 mg/dL [facility] Potassium [Moles/Vol] 4.4 mmol/L 3.7 - 5.1 mmol/L [facility] Protein [Mass/Vol] 7.2 g/dL 6.3 - 8.0 g/dL [facility] Sodium [Moles/Vol] 136 mmol/L 136 - 144 mmol/L [facility] Urea nitrogen [Mass/Vol] 22 mg/dL 9 - 24 mg/dL [facility] CT cervical spine wo conon 0 12-15-2022 CT cervical spine wo [place] [facility] [address] CT Scan Report Signed Patient: Trinity Perry MR#: [id number] 26 : 1950 Acct:[id number] Age/Sex: 72 / M ADM Date: 12/15/22 Loc: ER Room: Type: PRE ER Attending Dr: Copies to: Jemma Padilla APRN Ordering Provider: Jemma Padilla APRN Date of Service: 12/15/22 CT/CT head/brain wo con: injury ([id number]) CT/CT cervical spine wo con: fall CT [...] Saldaña Jr., DKristieOKristie12/15/2022 3:56 PM Dictation Location: [place] [address] Transcribed By: [facility] 12/15/22 1556 Dictated By: Ronnie Saldaña Jr, DO 12/15/22 1551 Signed By: 12/15/22 1556 Normal [facility] CBC W Auto Differential pane l (Bld)on 12-14-2022 Basophils (Bld) [#/Vol] 0.03 10*3/uL <0.11 k/uL [facility] Basophils/100 WBC (Bld) 0.5 % [facility] Differential cell count method Nom (Bld) Auto [facility] Eosinophils (Bld) [#/Vol] <0.46 k/uL [facility] Eosinophils/100 WBC (Bld) 0.2 % [facility] Erythrocyte distribution width (RBC) [Ratio] 19.2 % High 11.5 - 15.0 % [facility] Hematocrit (Bld) [Volume fraction] 33.4 % Low 39.0 - 51.0 % [facility] Hemoglobin (Bld) [Mass/Vol] 10.5 g/dL Low 13.0 - 17.0 g/dL [facility] Immature granulocytes (Bld) [#/Vol] <0.10 k/uL [facility] Immature granulocytes/100 WBC (Bld) 0.3 % [facility] Lymphocytes (Bld) [#/Vol] 1.25 10*3/uL 1.00 - 4.00 k/uL [facility] Lymphocytes/100 WBC (Bld) 19.1 % [facility] MCH (RBC) [Entitic mass] 32.0 pg 26.0 - 34.0 pg [facility] MCHC (RBC) [Mass/Vol] 31.4 g/dL 30.5 - 36.0 g/dL [facility] MCV (RBC) [Entitic vol] 101.8 fL High 80.0 - 100.0 fL [facility] Monocytes (Bld) [#/Vol] 0.56 10*3/uL <0.87 k/uL [facility] Monocytes/100 WBC (Bld) 8.6 % [facility] Neutrophils (Bld) [#/Vol] 4.67 10*3/uL 1.45 - 7.50 k/uL [facility] Neutrophils/100 WBC (Bld) 71.3 % [facility] Nucleated RBC (Bld) [#/Vol] <0.01 k/uL [facility] Nucleated RBC/100 WBC (Bld) [Ratio] 0.0 /100 WBC [facility] Platelet mean volume (Bld) [Entitic vol] 9.3 fL 9.0 - 12.7 fL [facility] Platelets (Bld) [#/Vol] 362 10*3/uL 150 - 400 k/uL [facility] RBC (Bld) [#/Vol] 3.28 10*6/uL Low 4.20 - 6.0 0 m/uL [facility] WBC (Bld) [#/Vol] 6.54 10*3/uL 3.70 - 11.00 k/uL [facility] Comprehensive metabolic 2000 panelon 12-14-2022 Albumin [Mass/Vol] 3.8 g/dL Low 3.9 - 4.9 g/dL [facility] ALP [Catalytic activity/Vol] 138 U/L High 38 - 113 U/L [facility] ALT [Catalytic activity/Vol] 25 U/L 10 - 54 U/L [facility] Anion gap [Moles/Vol] 8 mmol/L Low 9 - 18 mmol/L [facility] AST [Catalytic activity/Vol] 22 U/L 14 - 40 U/L [facility] Bilirubin [Mass/Vol] 0.9 mg/dL 0.2 - 1 .3 mg/dL [facility] Calcium [Mass/Vol] 10.5 mg/dL High 8.5 - 10. 2 mg/dL [facility] Chloride [Moles/Vol] 104 mmol/L 97 - 10 5 mmol/L [facility] CO2 [Moles/Vol] 24 mmol/L 22 - 30 mmol/L [facility] Creatinine [Mass/Vol] 0.85 mg/dL 0.73 - 1.22 mg/dL [facility] Estimated Glomerular Filtration Rate 93 mL/min/1.73m >=60 mL/min/1.73 m [facility] Glucose [Mass/Vol] 158 mg/dL High 74 - 99 mg/dL [facility] Potassium [Moles/Vol] 4.1 mmol/L 3.7 - 5.1 mmol/L [facility] Protein [Mass/Vol] 7.0 g/dL 6.3 - 8.0 g/dL [facility] Sodium [Moles/Vol] 136 mmol/L 136 - 144 mmol/L [facility] Urea nitrogen [Mass/Vol] 16 mg/dL 9 - 24 mg/dL [facility] CBC W Auto Differential pane l (Bld)on 11-30-2022 Basophils (Bld) [#/Vol] 0.03 10*3/uL <0.11 k/uL [facility] Basophils/100 WBC (Bld) 0.5 % [facility] Differential cell count method Nom (Bld) Auto [facility] Eosinophils (Bld) [#/Vol] <0.46 k/uL [facility] Eosinophils/100 WBC (Bld) 0.3 % [facility] Erythrocyte distribution width (RBC) [Ratio] 14.1 % 11.5 - 15.0 % [facility] Hematocrit (Bld) [Volume fraction] 25.2 % Low 39.0 - 51.0 % [facility] Hemoglobin (Bld) [Mass/Vol] 8.2 g/dL Low 13.0 - 17.0 g/dL [facility] Immature granulocytes (Bld) [#/Vol] 0.07 10*3/uL <0.10 k/uL [facility] Immature granulocytes/100 WBC (Bld) 1.2 % [facility] Lymphocytes (Bld) [#/Vol] 1.86 10*3/uL 1.00 - 4.00 k/uL [facility] Lymphocytes/100 WBC (Bld) 30.9 % [facility] MCH (RBC) [Entitic mass] 31.4 pg 26.0 - 34.0 pg [facility] MCHC (RBC) [Mass/Vol] 32.5 g/dL 30.5 - 36.0 g/dL [facility] MCV (RBC) [Entitic vol] 96.6 fL 80.0 - 100.0 fL [facility] Monocytes (Bld) [#/Vol] 0.26 10*3/uL <0.87 k/uL [facility] Monocytes/100 WBC (Bld) 4.3 % [facility] Neutrophils (Bld) [#/Vol] 3.78 10*3/uL 1.45 - 7.50 k/uL [facility] Neutrophils/100 WBC (Bld) 62.8 % [facility] Nucleated RBC (Bld) [#/Vol] <0.01 k/uL [facility] Nucleated RBC/100 WBC (Bld) [Ratio] 0.0 /100 WBC [facility] Platelet mean volume (Bld) [Entitic vol] 10.0 fL 9.0 - 12.7 fL [facility] Platelets (Bld) [#/Vol] 217 10*3/uL 150 - 400 k/uL [facility] RBC (Bld) [#/Vol] 2.61 10*6/uL Low 4.20 - 6.0 0 m/uL [facility] WBC (Bld) [#/Vol] 6.02 10*3/uL 3.70 - 11.00 k/uL [facility] Comprehensive metabolic 2000 panelon 11-30-2022 Albumin [Mass/Vol] 3.3 g/dL Low 3.9 - 4.9 g/dL [facility] ALP [Catalytic activity/Vol] 121 U/L High 38 - 113 U/L [facility] ALT [Catalytic activity/Vol] 17 U/L 10 - 54 U/L [facility] Anion gap [Moles/Vol] 6 mmol/L Low 9 - 18 mmol/L [facility] AST [Catalytic activity/Vol] 24 U/L 14 - 40 U/L [facility] Bilirubin [Mass/Vol] 1.0 mg/dL 0.2 - 1 .3 mg/dL [facility] Calcium [Mass/Vol] 10.6 mg/dL High 8.5 - 10. 2 mg/dL [facility] Chloride [Moles/Vol] 103 mmol/L 97 - 10 5 mmol/L [facility] CO2 [Moles/Vol] 25 mmol/L 22 - 30 mmol/L [facility] Creatinine [Mass/Vol] 0.80 mg/dL 0.73 - 1.22 mg/dL [facility] Estimated Glomerular Filtration Rate 95 mL/min/1.73m >=60 mL/min/1.73 m [facility] Glucose [Mass/Vol] 273 mg/dL High 74 - 99 mg/dL [facility] Potassium [Moles/Vol] 4.0 mmol/L 3.7 - 5.1 mmol/L [facility] Protein [Mass/Vol] 6.8 g/dL 6.3 - 8.0 g/dL [facility] Sodium [Moles/Vol] 134 mmol/L Low 136 - 144 mmol/L [facility] Urea nitrogen [Mass/Vol] 15 mg/dL 9 - 24 mg/dL [facility] CBC W Auto Differential pane l (Bld)on 11-23-2022 Basophils (Bld) [#/Vol] 0.03 10*3/uL <0.11 k/uL [facility] Basophils/100 WBC (Bld) 0.3 % [facility] Differential cell count method Nom (Bld) Auto [facility] Eosinophils (Bld) [#/Vol] 0.05 10*3/uL <0.46 k/uL [facility] Eosinophils/100 WBC (Bld) 0.5 % [facility] Erythrocyte distribution width (RBC) [Ratio] 13.9 % 11.5 - 15.0 % [facility] Hematocrit (Bld) [Volume fraction] 32.6 % Low 39.0 - 51.0 % [facility] Hemoglobin (Bld) [Mass/Vol] 10.7 g/dL Low 13.0 - 17.0 g/dL [facility] Immature granulocytes (Bld) [#/Vol] 0.04 10*3/uL <0.10 k/uL [facility] Immature granulocytes/100 WBC (Bld) 0.4 % [facility] Lymphocytes (Bld) [#/Vol] 1.57 10*3/uL 1.00 - 4.00 k/uL [facility] Lymphocytes/100 WBC (Bld) 14.5 % [facility] MCH (RBC) [Entitic mass] 31.7 pg 26.0 - 34.0 pg [facility] MCHC (RBC) [Mass/Vol] 32.8 g/dL 30.5 - 36.0 g/dL [facility] MCV (RBC) [Entitic vol] 96.4 fL 80.0 - 100.0 fL [facility] Monocytes (Bld) [#/Vol] 0.77 10*3/uL <0.87 k/uL [facility] Monocytes/100 WBC (Bld) 7.1 % [facility] Neutrophils (Bld) [#/Vol] 8.35 10*3/uL High 1.45 - 7.50 k/uL [facility] Neutrophils/100 WBC (Bld) 77.2 % [facility] Nucleated RBC (Bld) [#/Vol] <0.01 k/uL [facility] Nucleated RBC/100 WBC (Bld) [Ratio] 0.0 /100 WBC [facility] Platelet mean volume (Bld) [Entitic vol] 10.9 fL 9.0 - 12.7 fL [facility] Platelets (Bld) [#/Vol] 269 10*3/uL 150 - 400 k/uL [facility] RBC (Bld) [#/Vol] 3.38 10*6/uL Low 4.20 - 6.0 0 m/uL [facility] WBC (Bld) [#/Vol] 10.81 10*3/uL 3.70 - 11.00 k/uL [facility] Comprehensive metabolic 2000 panelon 11-23-2022 Albumin [Mass/Vol] 3.5 g/dL Low 3.9 - 4.9 g/dL [facility] ALP [Catalytic activity/Vol] 136 U/L High 38 - 113 U/L [facility] ALT [Catalytic activity/Vol] 13 U/L 10 - 54 U/L [facility] Anion gap [Moles/Vol] 9 mmol/L 9 - 18 mmol/L [facility] AST [Catalytic activity/Vol] 13 U/L Low 14 - 40 U/L [facility] Bilirubin [Mass/Vol] 1.0 mg/dL 0.2 - 1 .3 mg/dL [facility] Calcium [Mass/Vol] 10.4 mg/dL High 8.5 - 10. 2 mg/dL [facility] Chloride [Moles/Vol] 101 mmol/L 97 - 10 5 mmol/L [facility] CO2 [Moles/Vol] 23 mmol/L 22 - 30 mmol/L [facility] Creatinine [Mass/Vol] 0.80 mg/dL 0.73 - 1.22 mg/dL [facility] Estimated Glomerular Filtration Rate 95 mL/min/1.73m >=60 mL/min/1.73 m [facility] Glucose [Mass/Vol] 251 mg/dL High 74 - 99 mg/dL [facility] Potassium [Moles/Vol] 4.1 mmol/L 3.7 - 5.1 mmol/L [facility] Protein [Mass/Vol] 7.1 g/dL 6.3 - 8.0 g/dL [facility] Sodium [Moles/Vol] 133 mmol/L Low 136 - 144 mmol/L [facility] Urea nitrogen [Mass/Vol] 15 mg/dL 9 - 24 mg/dL [facility] CBC W Auto Differential pane l (Bld)on 11-10-2022 Basophils (Bld) [#/Vol] 0.03 10*3/uL <0.11 k/uL [facility] Basophils/100 WBC (Bld) 0.4 % [facility] Differential cell count method Nom (Bld) Auto [facility] Eosinophils (Bld) [#/Vol] 0.04 10*3/uL <0.46 k/uL [facility] Eosinophils/100 WBC (Bld) 0.5 % [facility] Erythrocyte distribution width (RBC) [Ratio] 14.2 % 11.5 - 15.0 % [facility] Hematocrit (Bld) [Volume fraction] 37.4 % Low 39.0 - 51.0 % [facility] Hemoglobin (Bld) [Mass/Vol] 12.2 g/dL Low 13.0 - 17.0 g/dL [facility] Immature granulocytes (Bld) [#/Vol] 0.04 10*3/uL <0.10 k/uL [facility] Immature granulocytes/100 WBC (Bld) 0.5 % [facility] Lymphocytes (Bld) [#/Vol] 1.39 10*3/uL 1.00 - 4.00 k/uL [facility] Lymphocytes/100 WBC (Bld) 17.4 % [facility] MCH (RBC) [Entitic mass] 31.6 pg 26.0 - 34.0 pg [facility] MCHC (RBC) [Mass/Vol] 32.6 g/dL 30.5 - 36.0 g/dL [facility] MCV (RBC) [Entitic vol] 96.9 fL 80.0 - 100.0 fL [facility] Monocytes (Bld) [#/Vol] 0.53 10*3/uL <0.87 k/uL [facility] Monocytes/100 WBC (Bld) 6.6 % [facility] Neutrophils (Bld) [#/Vol] 5.97 10*3/uL 1.45 - 7.50 k/uL [facility] Neutrophils/100 WBC (Bld) 74.6 % [facility] Nucleated RBC (Bld) [#/Vol] <0.01 k/uL [facility] Nucleated RBC/100 WBC (Bld) [Ratio] 0.0 /100 WBC [facility] Platelet mean volume (Bld) [Entitic vol] 11.3 fL 9.0 - 12.7 fL [facility] Platelets (Bld) [#/Vol] 254 10*3/uL 150 - 400 k/uL [facility] RBC (Bld) [#/Vol] 3.86 10*6/uL Low 4.20 - 6.0 0 m/uL [facility] WBC (Bld) [#/Vol] 8.00 10*3/uL 3.70 - 11.00 k/uL [facility] Comprehensive metabolic 2000 panelon 11-10-2022 Albumin [Mass/Vol] 4.0 g/dL 3.9 - 4.9 g/dL [facility] ALP [Catalytic activity/Vol] 180 U/L High 38 - 113 U/L [facility] ALT [Catalytic activity/Vol] 26 U/L 10 - 54 U/L [facility] Anion gap [Moles/Vol] 9 mmol/L 9 - 18 mmol/L [facility] AST [Catalytic activity/Vol] 21 U/L 14 - 40 U/L [facility] Bilirubin [Mass/Vol] 0.9 mg/dL 0.2 - 1 .3 mg/dL [facility] Calcium [Mass/Vol] 11.0 mg/dL High 8.5 - 10. 2 mg/dL [facility] Chloride [Moles/Vol] 100 mmol/L 97 - 10 5 mmol/L [facility] CO2 [Moles/Vol] 23 mmol/L 22 - 30 mmol/L [facility] Creatinine [Mass/Vol] 0.77 mg/dL 0.73 - 1.22 mg/dL [facility] Estimated Glomerular Filtration Rate 96 mL/min/1.73m >=60 mL/min/1.73 m [facility] Glucose [Mass/Vol] 782 mg/dL High 74 - 99 mg/dL [facility] Potassium [Moles/Vol] 4.7 mmol/L 3.7 - 5.1 mmol/L [facility] Protein [Mass/Vol] 7.4 g/dL 6.3 - 8.0 g/dL [facility] Sodium [Moles/Vol] 132 mmol/L Low 136 - 144 mmol/L [facility] Urea nitrogen [Mass/Vol] 16 mg/dL 9 - 24 mg/dL [facility] CT Abdomen and Pelvis W cont [...] any questions regarding this interpretation, please call [phone]. If you are unable to reach us at the number above, please feel free to contact [facility] at [phone]. DIVISION OF RADIOLOGY * * *Final Report* * * DATE OF EXAM: Nov 03 2022 10:35AM [facility] [place] 0530 - CT ABD/PEL W IVCON / [...] enlarged retroperitoneal and central mesenteric lymph nodes. Transfer Car Operator measurements are detailed as follows on series [...] chest CT performed will be reported separately. Disposal Worker (topogram) images: No additional findings. DIVISION OF RADIOLOGY Provider, [facility] - 11/03/2022 * * *Final Report* * * DATE OF EXAM: Nov 03 2022 10:35AM [facility] [place] 0530 - CT ABD/PEL W IVCON / [...] enlarged retroperitoneal and central mesenteric lymph nodes. Transfer Car Operator measurements are detailed as follows on series [...] chest CT performed will be reported separately. Disposal Worker (topogram) images: No additional findings. IMPRESSION [...] any questions regarding this interpretation, please call [phone]. If you are unable to reach us at the number above, please feel free to contact [facility] at [phone]. [facility] CT Chest W contrast Kodi IMPRESSION: [...] any questions regarding this interpretation, please call [phone]. If you are unable to reach us at the number above, please feel free to contact [facility] at [phone]. DIVISION OF RADIOLOGY * * *Final Report* * * DATE OF EXAM: Nov 03 2022 10:35AM [facility] [place] 0539 - CT CHEST W IVCON / [...] for findings related to the upper abdomen. Disposal Worker (topogram) images: No additional findings. DIVISION OF RADIOLOGY Provider, [facility] - 11/03/2022 * * *Final Report* * * DATE OF EXAM: Nov 03 2022 10:35AM [facility] [place] 0539 - CT CHEST W IVCON / [...] for findings related to the upper abdomen. Disposal Worker (topogram) images: No additional findings. IMPRESSION [...] any questions regarding this interpretation, please call [phone]. If you are unable to reach us at the number above, please feel free to contact [facility] at [phone]. [facility] CT Chest W contrast IVOrdere d By: [facility] Provider on 11-03-2022 [facility] No Panel Informationon 11-03 Radiology Study observation (narrative) [facility] CBC W Auto Differential pane l (Bld)on 09-29-2022 Basophils (Bld) [#/Vol] <0.11 k/uL [facility] Basophils/100 WBC (Bld) 0.2 % [facility] Differential cell count method Nom (Bld) Auto [facility] Eosinophils (Bld) [#/Vol] 0.06 10*3/uL <0.46 k/uL [facility] Eosinophils/100 WBC (Bld) 0.7 % [facility] Erythrocyte distribution width (RBC) [Ratio] 14.3 % 11.5 - 15.0 % [facility] Hematocrit (Bld) [Volume fraction] 35.6 % Low 39.0 - 51.0 % [facility] Hemoglobin (Bld) [Mass/Vol] 11.3 g/dL Low 13.0 - 17.0 g/dL [facility] Immature granulocytes (Bld) [#/Vol] <0.10 k/uL [facility] Immature granulocytes/100 WBC (Bld) 0.2 % [facility] Lymphocytes (Bld) [#/Vol] 1.48 10*3/uL 1.00 - 4.00 k/uL [facility] Lymphocytes/100 WBC (Bld) 17.4 % [facility] MCH (RBC) [Entitic mass] 31.1 pg 26.0 - 34.0 pg [facility] MCHC (RBC) [Mass/Vol] 31.7 g/dL 30.5 - 36.0 g/dL [facility] MCV (RBC) [Entitic vol] 98.1 fL 80.0 - 100.0 fL [facility] Monocytes (Bld) [#/Vol] 0.68 10*3/uL <0.87 k/uL [facility] Monocytes/100 WBC (Bld) 8.0 % [facility] Neutrophils (Bld) [#/Vol] 6.24 10*3/uL 1.45 - 7.50 k/uL [facility] Neutrophils/100 WBC (Bld) 73.5 % [facility] Nucleated RBC (Bld) [#/Vol] <0.01 k/uL [facility] Nucleated RBC/100 WBC (Bld) [Ratio] 0.0 /100 WBC [facility] Platelet mean volume (Bld) [Entitic vol] 10.6 fL 9.0 - 12.7 fL [facility] Platelets (Bld) [#/Vol] 260 10*3/uL 150 - 400 k/uL [facility] RBC (Bld) [#/Vol] 3.63 10*6/uL Low 4.20 - 6.0 0 m/uL [facility] WBC (Bld) [#/Vol] 8.50 10*3/uL 3.70 - 11.00 k/uL [facility] Comprehensive metabolic 2000 panelon 09-29-2022 Albumin [Mass/Vol] 4.0 g/dL 3.9 - 4.9 g/dL [facility] ALP [Catalytic activity/Vol] 170 U/L High 38 - 113 U/L [facility] ALT [Catalytic activity/Vol] 23 U/L 10 - 54 U/L [facility] Anion gap [Moles/Vol] 9 mmol/L 9 - 18 mmol/L [facility] AST [Catalytic activity/Vol] 18 U/L 14 - 40 U/L [facility] Bilirubin [Mass/Vol] 1.1 mg/dL 0.2 - 1 .3 mg/dL [facility] Calcium [Mass/Vol] 10.4 mg/dL High 8.5 - 10. 2 mg/dL [facility] Chloride [Moles/Vol] 100 mmol/L 97 - 10 5 mmol/L [facility] CO2 [Moles/Vol] 25 mmol/L 22 - 30 mmol/L [facility] Creatinine [Mass/Vol] 0.75 mg/dL 0.73 - 1.22 mg/dL [facility] Estimated Glomerular Filtration Rate 96 mL/min/1.73m >=60 mL/min/1.73 m [facility] Glucose [Mass/Vol] 377 mg/dL High 74 - 99 mg/dL [facility] Potassium [Moles/Vol] 5.0 mmol/L 3.7 - 5.1 mmol/L [facility] Protein [Mass/Vol] 7.1 g/dL 6.3 - 8.0 g/dL [facility] Sodium [Moles/Vol] 134 mmol/L Low 136 - 144 mmol/L [facility] Urea nitrogen [Mass/Vol] 19 mg/dL 9 - 24 mg/dL [facility] CBC W Auto Differential pane l (Bld)on 08-02-2022 Basophils (Bld) [#/Vol] <0.11 k/uL [facility] Basophils/100 WBC (Bld) 0.2 % [facility] Differential cell count method Nom (Bld) Auto [facility] Eosinophils (Bld) [#/Vol] 0.07 10*3/uL <0.46 k/uL [facility] Eosinophils/100 WBC (Bld) 0.7 % [facility] Erythrocyte distribution width (RBC) [Ratio] 15.3 % High 11.5 - 15.0 % [facility] Hematocrit (Bld) [Volume fraction] 35.3 % Low 39.0 - 51.0 % [facility] Hemoglobin (Bld) [Mass/Vol] 11.5 g/dL Low 13.0 - 17.0 g/dL [facility] Immature granulocytes (Bld) [#/Vol] 0.03 10*3/uL <0.10 k/uL [facility] Immature granulocytes/100 WBC (Bld) 0.3 % [facility] Lymphocytes (Bld) [#/Vol] 1.91 10*3/uL 1.00 - 4.00 k/uL [facility] Lymphocytes/100 WBC (Bld) 20.2 % [facility] MCH (RBC) [Entitic mass] 31.3 pg 26.0 - 34.0 pg [facility] MCHC (RBC) [Mass/Vol] 32.6 g/dL 30.5 - 36.0 g/dL [facility] MCV (RBC) [Entitic vol] 96.2 fL 80.0 - 100.0 fL [facility] Monocytes (Bld) [#/Vol] 0.81 10*3/uL <0.87 k/uL [facility] Monocytes/100 WBC (Bld) 8.6 % [facility] Neutrophils (Bld) [#/Vol] 6.60 10*3/uL 1.45 - 7.50 k/uL [facility] Neutrophils/100 WBC (Bld) 70.0 % [facility] Nucleated RBC (Bld) [#/Vol] <0.01 k/uL [facility] Nucleated RBC/100 WBC (Bld) [Ratio] 0.0 /100 WBC [facility] Platelet mean volume (Bld) [Entitic vol] 10.2 fL 9.0 - 12.7 fL [facility] Platelets (Bld) [#/Vol] 257 10*3/uL 150 - 400 k/uL [facility] RBC (Bld) [#/Vol] 3.67 10*6/uL Low 4.20 - 6.0 0 m/uL [facility] WBC (Bld) [#/Vol] 9.44 10*3/uL 3.70 - 11.00 k/uL [facility] Comprehensive metabolic 2000 panelon 08-02-2022 Albumin [Mass/Vol] 4.2 g/dL 3.9 - 4.9 g/dL [facility] ALP [Catalytic activity/Vol] 140 U/L High 38 - 113 U/L [facility] ALT [Catalytic activity/Vol] 17 U/L 10 - 54 U/L [facility] Anion gap [Moles/Vol] 8 mmol/L Low 9 - 18 mmol/L [facility] AST [Catalytic activity/Vol] 20 U/L 14 - 40 U/L [facility] Bilirubin [Mass/Vol] 1.0 mg/dL 0.2 - 1 .3 mg/dL [facility] Calcium [Mass/Vol] 10.6 mg/dL High 8.5 - 10. 2 mg/dL [facility] Chloride [Moles/Vol] 105 mmol/L 97 - 10 5 mmol/L [facility] CO2 [Moles/Vol] 24 mmol/L 22 - 30 mmol/L [facility] Creatinine [Mass/Vol] 0.81 mg/dL 0.73 - 1.22 mg/dL [facility] Estimated Glomerular Filtration Rate 94 mL/min/1.73m >=60 mL/min/1.73 m [facility] Glucose [Mass/Vol] 151 mg/dL High 74 - 99 mg/dL [facility] Potassium [Moles/Vol] 4.7 mmol/L 3.7 - 5.1 mmol/L [facility] Protein [Mass/Vol] 7.3 g/dL 6.3 - 8.0 g/dL [facility] Sodium [Moles/Vol] 137 mmol/L 136 - 144 mmol/L [facility] Urea nitrogen [Mass/Vol] 18 mg/dL 9 - 24 mg/dL [facility] CT Abdomen and Pelvis W cont [...] any questions regarding this interpretation, please call [phone]. If you are unable to reach us at the number above, please feel free to contact [facility] at [phone]. DIVISION OF RADIOLOGY * * *Final Report* * * DATE OF EXAM: Jul 27 2022 11:05AM [facility] [place] 0530 - CT ABD/PEL W IVCON / [...] CT scan report for the abdomen findings. Disposal Worker (topogram) images: No additional findings. DIVISION OF RADIOLOGY Provider, [facility] - 07/27/2022 * * *Final Report* * * DATE OF EXAM: Jul 27 2022 11:05AM [facility] [place] 0530 - CT ABD/PEL W IVCON / [...] CT scan report for the abdomen findings. Disposal Worker (topogram) images: No additional findings. IMPRESSION [...] any questions regarding this interpretation, please call [phone]. If you are unable to reach us at the number above, please feel free to contact [facility] at [phone]. [facility] CT Chest W contrast Kodi IMPRESSION: [...] any questions regarding this interpretation, please call [phone]. If you are unable to reach us at the number above, please feel free to contact [facility] at [phone]. DIVISION OF RADIOLOGY * * *Final Report* * * DATE OF EXAM: Jul 27 2022 11:05AM [facility] [place] 0539 - CT CHEST W IVCON / [...] CT scan report for the abdomen findings. Disposal Worker (topogram) images: No additional findings. DIVISION OF RADIOLOGY Provider, [facility] - 07/27/2022 * * *Final Report* * * DATE OF EXAM: Jul 27 2022 11:05AM [facility] [place] 0539 - CT CHEST W IVCON / [...] CT scan report for the abdomen findings. Disposal Worker (topogram) images: No additional findings. IMPRESSION [...] any questions regarding this interpretation, please call [phone]. If you are unable to reach us at the number above, please feel free to contact [facility] at [phone]. [facility] CT Chest W contrast IVOrdere d By: [facility]cf Provider on 07-27-2022 [facility] No Panel Informationon 07-27 Radiology Study observation (narrative) [facility] CBC W Auto Differential pane l (Bld)on 06-29-2022 Basophils (Bld) [#/Vol] 0.03 10*3/uL <0.11 k/uL [facility] Basophils/100 WBC (Bld) 0.3 % [facility] Differential cell count method Nom (Bld) Auto [facility] Eosinophils (Bld) [#/Vol] 0.09 10*3/uL <0.46 k/uL [facility] Eosinophils/100 WBC (Bld) 0.9 % [facility] Erythrocyte distribution width (RBC) [Ratio] 15.3 % High 11.5 - 15.0 % [facility] Hematocrit (Bld) [Volume fraction] 36.8 % Low 39.0 - 51.0 % [facility] Hemoglobin (Bld) [Mass/Vol] 11.7 g/dL Low 13.0 - 17.0 g/dL [facility] Immature granulocytes (Bld) [#/Vol] 0.03 10*3/uL <0.10 k/uL [facility] Immature granulocytes/100 WBC (Bld) 0.3 % [facility] Lymphocytes (Bld) [#/Vol] 2.15 10*3/uL 1.00 - 4.00 k/uL [facility] Lymphocytes/100 WBC (Bld) 20.9 % [facility] MCH (RBC) [Entitic mass] 30.5 pg 26.0 - 34.0 pg [facility] MCHC (RBC) [Mass/Vol] 31.8 g/dL 30.5 - 36.0 g/dL [facility] [facility] MCV (RBC) [Entitic vol] 96.1 fL 80.0 - 100.0 fL [facility] Monocytes (Bld) [#/Vol] 1.05 10*3/uL High <0.87 k/uL [facility] Monocytes/100 WBC (Bld) 10.2 % [facility] Neutrophils (Bld) [#/Vol] 6.95 10*3/uL 1.45 - 7.50 k/uL [facility] Neutrophils/100 WBC (Bld) 67.4 % [facility] Nucleated RBC (Bld) [#/Vol] <0.01 k/uL [facility] Nucleated RBC/100 WBC (Bld) [Ratio] 0.0 /100 WBC [facility] Platelet mean volume (Bld) [Entitic vol] 9.8 fL 9.0 - 12.7 fL [facility] Platelets (Bld) [#/Vol] 288 10*3/uL 150 - 400 k/uL [facility] RBC (Bld) [#/Vol] 3.83 10*6/uL Low 4.20 - 6.0 0 m/uL [facility] WBC (Bld) [#/Vol] 10.30 10*3/uL 3.70 - 11.00 k/uL [facility] Comprehensive metabolic 2000 panelon 06-29-2022 Albumin [Mass/Vol] 4.2 g/dL 3.9 - 4.9 g/dL [facility] ALP [Catalytic activity/Vol] 146 U/L High 38 - 113 U/L [facility] ALT [Catalytic activity/Vol] 21 U/L 10 - 54 U/L [facility] Anion gap [Moles/Vol] 8 mmol/L Low 9 - 18 mmol/L [facility] AST [Catalytic activity/Vol] 20 U/L 14 - 40 U/L [facility] Bilirubin [Mass/Vol] 0.9 mg/dL 0.2 - 1 .3 mg/dL [facility] Calcium [Mass/Vol] 10.6 mg/dL High 8.5 - 10. 2 mg/dL [facility] Chloride [Moles/Vol] 100 mmol/L 97 - 10 5 mmol/L [facility] CO2 [Moles/Vol] 25 mmol/L 22 - 30 mmol/L [facility] Creatinine [Mass/Vol] 0.83 mg/dL 0.73 - 1.22 mg/dL [facility] Estimated Glomerular Filtration Rate 94 mL/min/1.73m >=60 mL/min/1.73 m [facility] Glucose [Mass/Vol] 189 mg/dL High 74 - 99 mg/dL [facility] Potassium [Moles/Vol] 4.7 mmol/L 3.7 - 5.1 mmol/L [facility] Protein [Mass/Vol] 7.6 g/dL 6.3 - 8.0 g/dL [facility] Sodium [Moles/Vol] 133 mmol/L Low 136 - 144 mmol/L [facility] Urea nitrogen [Mass/Vol] 21 mg/dL 9 - 24 mg/dL [facility] CBC W Auto Differential pane l (Bld)on 06-01-2022 Basophils (Bld) [#/Vol] 0.05 10*3/uL <0.11 k/uL [facility] Basophils/100 WBC (Bld) 0.6 % [facility] Differential cell count method Nom (Bld) Auto [facility] Eosinophils (Bld) [#/Vol] 0.11 10*3/uL <0.46 k/uL [facility] Eosinophils/100 WBC (Bld) 1.3 % [facility] Erythrocyte distribution width (RBC) [Ratio] 15.9 % High 11.5 - 15.0 % [facility] Hematocrit (Bld) [Volume fraction] 34.6 % Low 39.0 - 51.0 % [facility] Hemoglobin (Bld) [Mass/Vol] 11.0 g/dL Low 13.0 - 17.0 g/dL [facility] Immature granulocytes (Bld) [#/Vol] 0.03 10*3/uL <0.10 k/uL [facility] Immature granulocytes/100 WBC (Bld) 0.4 % [facility] Lymphocytes (Bld) [#/Vol] 1.92 10*3/uL 1.00 - 4.00 k/uL [facility] Lymphocytes/100 WBC (Bld) 22.6 % [facility] MCH (RBC) [Entitic mass] 31.7 pg 26.0 - 34.0 pg [facility] MCHC (RBC) [Mass/Vol] 31.8 g/dL 30.5 - 36.0 g/dL [facility] MCV (RBC) [Entitic vol] 99.7 fL 80.0 - 100.0 fL [facility] Monocytes (Bld) [#/Vol] 0.95 10*3/uL High <0.87 k/uL [facility] Monocytes/100 WBC (Bld) 11.2 % [facility] Neutrophils (Bld) [#/Vol] 5.43 10*3/uL 1.45 - 7.50 k/uL [facility] Neutrophils/100 WBC (Bld) 63.9 % [facility] Nucleated RBC (Bld) [#/Vol] <0.01 k/uL [facility] Nucleated RBC/100 WBC (Bld) [Ratio] 0.0 /100 WBC [facility] Platelet mean volume (Bld) [Entitic vol] 9.9 fL 9.0 - 12.7 fL [facility] Platelets (Bld) [#/Vol] 354 10*3/uL 150 - 400 k/uL [facility] RBC (Bld) [#/Vol] 3.47 10*6/uL Low 4.20 - 6.0 0 m/uL [facility] WBC (Bld) [#/Vol] 8.49 10*3/uL 3.70 - 11.00 k/uL [facility] Comprehensive metabolic 2000 panelon 06-01-2022 Albumin [Mass/Vol] 4.3 g/dL 3.9 - 4.9 g/dL [facility] ALP [Catalytic activity/Vol] 138 U/L High 38 - 113 U/L [facility] ALT [Catalytic activity/Vol] 20 U/L 10 - 54 U/L [facility] Anion gap [Moles/Vol] 7 mmol/L Low 9 - 18 mmol/L [facility] AST [Catalytic activity/Vol] 19 U/L 14 - 40 U/L [facility] Bilirubin [Mass/Vol] 0.5 mg/dL 0.2 - 1 .3 mg/dL [facility] Calcium [Mass/Vol] 10.1 mg/dL 8.5 - 10. 2 mg/dL [facility] Chloride [Moles/Vol] 103 mmol/L 97 - 10 5 mmol/L [facility] CO2 [Moles/Vol] 25 mmol/L 22 - 30 mmol/L [facility] Creatinine [Mass/Vol] 0.76 mg/dL 0.73 - 1.22 mg/dL [facility] Estimated Glomerular Filtration Rate 96 mL/min/1.73m >=60 mL/min/1.73 m [facility] Glucose [Mass/Vol] 179 mg/dL High 74 - 99 mg/dL [facility] Potassium [Moles/Vol] 4.9 mmol/L 3.7 - 5.1 mmol/L [facility] Protein [Mass/Vol] 6.9 g/dL 6.3 - 8.0 g/dL [facility] Sodium [Moles/Vol] 135 mmol/L Low 136 - 144 mmol/L [facility] Urea nitrogen [Mass/Vol] 20 mg/dL 9 - 24 mg/dL [facility] CT Abdomen and Pelvis W cont [...] any questions regarding this interpretation, please call [phone]. If you are unable to reach us at the number above, please feel free to contact [facility] at [phone]. DIVISION OF RADIOLOGY * * *Final Report* * * DATE OF EXAM: May 25 2022 11:28AM [facility] [place] 0530 - CT ABD/PEL W IVCON / [...] lobar consolidation or pleural effusion is seen. Disposal Worker (topogram) images: No additional findings. DIVISION OF RADIOLOGY Provider, [facility] - 05/25/2022 * * *Final Report* * * DATE OF EXAM: May 25 2022 11:28AM [facility] [place] 0530 - CT ABD/PEL W IVCON / [...] lobar consolidation or pleural effusion is seen. Disposal Worker (topogram) images: No additional findings. IMPRESSION [...] any questions regarding this interpretation, please call [phone]. If you are unable to reach us at the number above, please feel free to contact [facility] at [phone]. [facility] CT Chest W contrast Kodi IMPRESSION: [...] any questions regarding this interpretation, please call [phone]. If you are unable to reach us at the number above, please feel free to contact [facility] at [phone]. DIVISION OF RADIOLOGY * * *Final Report* * * DATE OF EXAM: May 25 2022 11:28AM [facility] [place] 0539 - CT CHEST W IVCON / [...] was performed concurrently and is reported separately. Disposal Worker (topogram) images: No additional findings. DIVISION OF RADIOLOGY Provider, [facility] - 05/25/2022 * * *Final Report* * * DATE OF EXAM: May 25 2022 11:28AM [facility] [place] 0539 - CT CHEST W IVCON / [...] was performed concurrently and is reported separately. Disposal Worker (topogram) images: No additional findings. IMPRESSION [...] any questions regarding this interpretation, please call [phone]. If you are unable to reach us at the number above, please feel free to contact [facility] at [phone]. [facility] CT Chest W contrast IVOrdere d By: [facility] Provider on 05-25-2022 [facility] No Panel Informationon 05-25 Radiology Study observation (narrative) [facility] CBC W Auto Differential pane l (Bld)on 05-11-2022 Basophils (Bld) [#/Vol] <0.11 k/uL [facility] Basophils/100 WBC (Bld) 0.3 % [facility] Differential cell count method Nom (Bld) Auto [facility] Eosinophils (Bld) [#/Vol] 0.10 10*3/uL <0.46 k/uL [facility] Eosinophils/100 WBC (Bld) 1.6 % [facility] Erythrocyte distribution width (RBC) [Ratio] 16.8 % High 11.5 - 15.0 % [facility] Hematocrit (Bld) [Volume fraction] 30.7 % Low 39.0 - 51.0 % [facility] Hemoglobin (Bld) [Mass/Vol] 9.5 g/dL Low 13.0 - 17.0 g/dL [facility] Immature granulocytes (Bld) [#/Vol] 0.03 10*3/uL <0.10 k/uL [facility] Immature granulocytes/100 WBC (Bld) 0.5 % [facility] Lymphocytes (Bld) [#/Vol] 1.49 10*3/uL 1.00 - 4.00 k/uL [facility] Lymphocytes/100 WBC (Bld) 24.0 % [facility] MCH (RBC) [Entitic mass] 31.6 pg 26.0 - 34.0 pg [facility] MCHC (RBC) [Mass/Vol] 30.9 g/dL 30.5 - 36.0 g/dL [facility] MCV (RBC) [Entitic vol] 102.0 fL High 80.0 - 100.0 fL [facility] Monocytes (Bld) [#/Vol] 0.79 10*3/uL <0.87 k/uL [facility] Monocytes/100 WBC (Bld) 12.7 % [facility] Neutrophils (Bld) [#/Vol] 3.79 10*3/uL 1.45 - 7.50 k/uL [facility] Neutrophils/100 WBC (Bld) 60.9 % [facility] Nucleated RBC (Bld) [#/Vol] <0.01 k/uL [facility] Nucleated RBC/100 WBC (Bld) [Ratio] 0.0 /100 WBC [facility] Platelet mean volume (Bld) [Entitic vol] 9.9 fL 9.0 - 12.7 fL [facility] Platelets (Bld) [#/Vol] 347 10*3/uL 150 - 400 k/uL [facility] RBC (Bld) [#/Vol] 3.01 10*6/uL Low 4.20 - 6.0 0 m/uL [facility] WBC (Bld) [#/Vol] 6.22 10*3/uL 3.70 - 11.00 k/uL [facility] Comprehensive metabolic 2000 panelon 05-11-2022 Albumin [Mass/Vol] 3.9 g/dL 3.9 - 4.9 g/dL [facility] ALP [Catalytic activity/Vol] 134 U/L High 38 - 113 U/L [facility] ALT [Catalytic activity/Vol] 20 U/L 10 - 54 U/L [facility] Anion gap [Moles/Vol] 7 mmol/L Low 9 - 18 mmol/L [facility] AST [Catalytic activity/Vol] 19 U/L 14 - 40 U/L [facility] Bilirubin [Mass/Vol] 0.6 mg/dL 0.2 - 1 .3 mg/dL [facility] Calcium [Mass/Vol] 9.8 mg/dL 8.5 - 10. 2 mg/dL [facility] Chloride [Moles/Vol] 105 mmol/L 97 - 10 5 mmol/L [facility] CO2 [Moles/Vol] 24 mmol/L 22 - 30 mmol/L [facility] Creatinine [Mass/Vol] 0.71 mg/dL Low 0.73 - 1.22 mg/dL [facility] Estimated Glomerular Filtration Rate 98 mL/min/1.73m >=60 mL/min/1.73 m [facility] Glucose [Mass/Vol] 240 mg/dL High 74 - 99 mg/dL [facility] Potassium [Moles/Vol] 4.6 mmol/L 3.7 - 5.1 mmol/L [facility] Protein [Mass/Vol] 6.5 g/dL 6.3 - 8.0 g/dL [facility] Sodium [Moles/Vol] 136 mmol/L 136 - 144 mmol/L [facility] Urea nitrogen [Mass/Vol] 17 mg/dL 9 - 24 mg/dL [facility] CBC W Auto Differential pane l (Bld)on 04-26-2022 Basophils (Bld) [#/Vol] 0.05 10*3/uL <0.11 k/uL [facility] Basophils/100 WBC (Bld) 0.8 % [facility] Differential cell count method Nom (Bld) Auto [facility] Eosinophils (Bld) [#/Vol] 0.04 10*3/uL <0.46 k/uL [facility] Eosinophils/100 WBC (Bld) 0.6 % [facility] Erythrocyte distribution width (RBC) [Ratio] 15.9 % High 11.5 - 15.0 % [facility] Hematocrit (Bld) [Volume fraction] 26.9 % Low 39.0 - 51.0 % [facility] Hemoglobin (Bld) [Mass/Vol] 8.5 g/dL Low 13.0 - 17.0 g/dL [facility] Immature granulocytes (Bld) [#/Vol] 0.07 10*3/uL <0.10 k/uL [facility] Immature granulocytes/100 WBC (Bld) 1.1 % [facility] Lymphocytes (Bld) [#/Vol] 1.73 10*3/uL 1.00 - 4.00 k/uL [facility] Lymphocytes/100 WBC (Bld) 28.1 % [facility] MCH (RBC) [Entitic mass] 32.2 pg 26.0 - 34.0 pg [facility] MCHC (RBC) [Mass/Vol] 31.6 g/dL 30.5 - 36.0 g/dL [facility] MCV (RBC) [Entitic vol] 101.9 fL High 80.0 - 100.0 fL [facility] Monocytes (Bld) [#/Vol] 0.28 10*3/uL <0.87 k/uL [facility] Monocytes/100 WBC (Bld) 4.5 % [facility] Neutrophils (Bld) [#/Vol] 3.99 10*3/uL 1.45 - 7.50 k/uL [facility] Neutrophils/100 WBC (Bld) 64.9 % [facility] Nucleated RBC (Bld) [#/Vol] <0.01 k/uL [facility] Nucleated RBC/100 WBC (Bld) [Ratio] 0.0 /100 WBC [facility] Platelet mean volume (Bld) [Entitic vol] 9.4 fL 9.0 - 12.7 fL [facility] Platelets (Bld) [#/Vol] 413 10*3/uL High 150 - 400 k/uL [facility] RBC (Bld) [#/Vol] 2.64 10*6/uL Low 4.20 - 6.0 0 m/uL [facility] WBC (Bld) [#/Vol] 6.16 10*3/uL 3.70 - 11.00 k/uL [facility] Comprehensive metabolic 2000 panelon 04-26-2022 Albumin [Mass/Vol] 4.0 g/dL 3.9 - 4.9 g/dL [facility] ALP [Catalytic activity/Vol] 129 U/L High 38 - 113 U/L [facility] ALT [Catalytic activity/Vol] 31 U/L 10 - 54 U/L [facility] Anion gap [Moles/Vol] 8 mmol/L Low 9 - 18 mmol/L [facility] AST [Catalytic activity/Vol] 29 U/L 14 - 40 U/L [facility] Bilirubin [Mass/Vol] 0.7 mg/dL 0.2 - 1 .3 mg/dL [facility] Calcium [Mass/Vol] 10.4 mg/dL High 8.5 - 10. 2 mg/dL [facility] Chloride [Moles/Vol] 103 mmol/L 97 - 10 5 mmol/L [facility] CO2 [Moles/Vol] 25 mmol/L 22 - 30 mmol/L [facility] Creatinine [Mass/Vol] 0.80 mg/dL 0.73 - 1.22 mg/dL [facility] Estimated Glomerular Filtration Rate 95 mL/min/1.73m >=60 mL/min/1.73 m [facility] Glucose [Mass/Vol] 127 mg/dL High 74 - 99 mg/dL [facility] Potassium [Moles/Vol] 4.5 mmol/L 3.7 - 5.1 mmol/L [facility] Protein [Mass/Vol] 6.8 g/dL 6.3 - 8.0 g/dL [facility] Sodium [Moles/Vol] 136 mmol/L 136 - 144 mmol/L [facility] Urea nitrogen [Mass/Vol] 13 mg/dL 9 - 24 mg/dL [facility] CBC W Auto Differential pane l (Bld)on 04-20-2022 Basophils (Bld) [#/Vol] 0.03 10*3/uL <0.11 k/uL [facility] Basophils/100 WBC (Bld) 0.4 % [facility] Differential cell count method Nom (Bld) Auto [facility] Eosinophils (Bld) [#/Vol] 0.10 10*3/uL <0.46 k/uL [facility] Eosinophils/100 WBC (Bld) 1.2 % [facility] Erythrocyte distribution width (RBC) [Ratio] 16.8 % High 11.5 - 15.0 % [facility] Hematocrit (Bld) [Volume fraction] 29.4 % Low 39.0 - 51.0 % [facility] Hemoglobin (Bld) [Mass/Vol] 9.2 g/dL Low 13.0 - 17.0 g/dL [facility] Immature granulocytes (Bld) [#/Vol] 0.05 10*3/uL <0.10 k/uL [facility] Immature granulocytes/100 WBC (Bld) 0.6 % [facility] Lymphocytes (Bld) [#/Vol] 1.46 10*3/uL 1.00 - 4.00 k/uL [facility] Lymphocytes/100 WBC (Bld) 18.0 % [facility] MCH (RBC) [Entitic mass] 32.5 pg 26.0 - 34.0 pg [facility] MCHC (RBC) [Mass/Vol] 31.3 g/dL 30.5 - 36.0 g/dL [facility] MCV (RBC) [Entitic vol] 103.9 fL High 80.0 - 100.0 fL [facility] Monocytes (Bld) [#/Vol] 0.89 10*3/uL High <0.87 k/uL [facility] Monocytes/100 WBC (Bld) 11.0 % [facility] Neutrophils (Bld) [#/Vol] 5.56 10*3/uL 1.45 - 7.50 k/uL [facility] Neutrophils/100 WBC (Bld) 68.8 % [facility] Nucleated RBC (Bld) [#/Vol] <0.01 k/uL [facility] Nucleated RBC/100 WBC (Bld) [Ratio] 0.0 /100 WBC [facility] Platelet mean volume (Bld) [Entitic vol] 9.5 fL 9.0 - 12.7 fL [facility] Platelets (Bld) [#/Vol] 363 10*3/uL 150 - 400 k/uL [facility] RBC (Bld) [#/Vol] 2.83 10*6/uL Low 4.20 - 6.0 0 m/uL [facility] WBC (Bld) [#/Vol] 8.09 10*3/uL 3.70 - 11.00 k/uL [facility] Comprehensive metabolic 2000 panelon 04-20-2022 Albumin [Mass/Vol] 3.9 g/dL 3.9 - 4.9 g/dL [facility] ALP [Catalytic activity/Vol] 138 U/L High 38 - 113 U/L [facility] ALT [Catalytic activity/Vol] 18 U/L 10 - 54 U/L [facility] Anion gap [Moles/Vol] 8 mmol/L Low 9 - 18 mmol/L [facility] AST [Catalytic activity/Vol] 18 U/L 14 - 40 U/L [facility] Bilirubin [Mass/Vol] 0.7 mg/dL 0.2 - 1 .3 mg/dL [facility] Calcium [Mass/Vol] 9.7 mg/dL 8.5 - 10. 2 mg/dL [facility] Chloride [Moles/Vol] 103 mmol/L 97 - 10 5 mmol/L [facility] CO2 [Moles/Vol] 24 mmol/L 22 - 30 mmol/L [facility] Creatinine [Mass/Vol] 0.73 mg/dL 0.73 - 1.22 mg/dL [facility] Estimated Glomerular Filtration Rate 98 mL/min/1.73m >=60 mL/min/1.73 m [facility] Glucose [Mass/Vol] 107 mg/dL High 74 - 99 mg/dL [facility] Potassium [Moles/Vol] 4.8 mmol/L 3.7 - 5.1 mmol/L [facility] Protein [Mass/Vol] 6.6 g/dL 6.3 - 8.0 g/dL [facility] Sodium [Moles/Vol] 135 mmol/L Low 136 - 144 mmol/L [facility] Urea nitrogen [Mass/Vol] 16 mg/dL 9 - 24 mg/dL [facility] Comprehensive metabolic 2000 panelon 04-06-2022 Albumin [Mass/Vol] 4.1 g/dL 3.9 - 4.9 g/dL [facility] ALP [Catalytic activity/Vol] 155 U/L High 38 - 113 U/L [facility] ALT [Catalytic activity/Vol] 38 U/L 10 - 54 U/L [facility] Anion gap [Moles/Vol] 8 mmol/L Low 9 - 18 mmol/L [facility] AST [Catalytic activity/Vol] 32 U/L 14 - 40 U/L [facility] Bilirubin [Mass/Vol] 0.7 mg/dL 0.2 - 1 .3 mg/dL [facility] Calcium [Mass/Vol] 9.9 mg/dL 8.5 - 10. 2 mg/dL [facility] Chloride [Moles/Vol] 106 mmol/L High 97 - 10 5 mmol/L [facility] CO2 [Moles/Vol] 26 mmol/L 22 - 30 mmol/L [facility] Creatinine [Mass/Vol] 0.74 mg/dL 0.73 - 1.22 mg/dL [facility] Estimated Glomerular Filtration Rate 97 mL/min/1.73m >=60 mL/min/1.73 m [facility] Glucose [Mass/Vol] 160 mg/dL High 74 - 99 mg/dL [facility] Potassium [Moles/Vol] 5.0 mmol/L 3.7 - 5.1 mmol/L [facility] Protein [Mass/Vol] 6.8 g/dL 6.3 - 8.0 g/dL [facility] Sodium [Moles/Vol] 140 mmol/L 136 - 144 mmol/L [facility] Urea nitrogen [Mass/Vol] 14 mg/dL 9 - 24 mg/dL [facility] CBC W Auto Differential pane l (Bld)on 03-16-2022 Basophils (Bld) [#/Vol] 0.04 10*3/uL <0.11 k/uL [facility] Basophils/100 WBC (Bld) 1.1 % [facility] Differential cell count method Nom (Bld) Auto [facility] Eosinophils (Bld) [#/Vol] 0.04 10*3/uL <0.46 k/uL [facility] Eosinophils/100 WBC (Bld) 1.1 % [facility] Erythrocyte distribution width (RBC) [Ratio] 14.4 % 11.5 - 15.0 % [facility] Hematocrit (Bld) [Volume fraction] 25.4 % Low 39.0 - 51.0 % [facility] Hemoglobin (Bld) [Mass/Vol] 8.5 g/dL Low 13.0 - 17.0 g/dL [facility] Immature granulocytes (Bld) [#/Vol] <0.10 k/uL [facility] Immature granulocytes/100 WBC (Bld) 0.5 % [facility] Lymphocytes (Bld) [#/Vol] 1.38 10*3/uL 1.00 - 4.00 k/uL [facility] Lymphocytes/100 WBC (Bld) 37.9 % [facility] MCH (RBC) [Entitic mass] 33.7 pg 26.0 - 34.0 pg [facility] MCHC (RBC) [Mass/Vol] 33.5 g/dL 30.5 - 36.0 g/dL [facility] MCV (RBC) [Entitic vol] 100.8 fL High 80.0 - 100.0 fL [facility] Monocytes (Bld) [#/Vol] 0.28 10*3/uL <0.87 k/uL [facility] Monocytes/100 WBC (Bld) 7.7 % [facility] Neutrophils (Bld) [#/Vol] 1.88 10*3/uL 1.45 - 7.50 k/uL [facility] Neutrophils/100 WBC (Bld) 51.7 % [facility] Nucleated RBC (Bld) [#/Vol] <0.01 k/uL [facility] Nucleated RBC/100 WBC (Bld) [Ratio] 0.0 /100 WBC [facility] Platelet mean volume (Bld) [Entitic vol] 10.1 fL 9.0 - 12.7 fL [facility] Platelets (Bld) [#/Vol] 174 10*3/uL 150 - 400 k/uL [facility] RBC (Bld) [#/Vol] 2.52 10*6/uL Low 4.20 - 6.0 0 m/uL [facility] WBC (Bld) [#/Vol] 3.64 10*3/uL Low 3.70 - 11.00 k/uL [facility] Comprehensive metabolic 2000 panelon 03-16-2022 Albumin [Mass/Vol] 4.0 g/dL 3.9 - 4.9 g/dL [facility] ALP [Catalytic activity/Vol] 153 U/L High 38 - 113 U/L [facility] ALT [Catalytic activity/Vol] 27 U/L 10 - 54 U/L [facility] Anion gap [Moles/Vol] 5 mmol/L Low 9 - 18 mmol/L [facility] AST [Catalytic activity/Vol] 22 U/L 14 - 40 U/L [facility] Bilirubin [Mass/Vol] 1.0 mg/dL 0.2 - 1 .3 mg/dL [facility] Calcium [Mass/Vol] 10.0 mg/dL 8.5 - 10. 2 mg/dL [facility] Chloride [Moles/Vol] 103 mmol/L 97 - 10 5 mmol/L [facility] CO2 [Moles/Vol] 26 mmol/L 22 - 30 mmol/L [facility] Creatinine [Mass/Vol] 0.73 mg/dL 0.73 - 1.22 mg/dL [facility] Estimated Glomerular Filtration Rate 98 mL/min/1.73m >=60 mL/min/1.73 m [facility] Glucose [Mass/Vol] 125 mg/dL High 74 - 99 mg/dL [facility] Potassium [Moles/Vol] 4.5 mmol/L 3.7 - 5.1 mmol/L [facility] Protein [Mass/Vol] 6.7 g/dL 6.3 - 8.0 g/dL [facility] Sodium [Moles/Vol] 134 mmol/L Low 136 - 144 mmol/L [facility] Urea nitrogen [Mass/Vol] 16 mg/dL 9 - 24 mg/dL [facility] CA 19-9 BLDon 03-08-2022 Cancer Ag 19-9 Qn 442.0 [arb'U]/mL High NINF - 36.0 U/mL [facility] Comment on above: Cancer antigen 19-9 test is used as an aid in monitoring response to treatment or recurrence in patients with established pancreatic, hepatobiliary, or gastrointestinal malignancies. Clinical correlation is required. The CA 19-9 Antigen test was performed using the [facility] DXI paramagnetic particle chemiluminescent immunoassay method. Results obtained with different assay methods or kits cannot be used interchangeably. Cancer Ag 19-9 Qnon 03-08-20 Interpretation and review of laboratory results Abnormal [facility] CBC W Auto Differential pane l (Bld)on 03-07-2022 Basophils (Bld) [#/Vol] 0.03 10*3/uL [facility] Basophils/100 WBC (Bld) 0.3 % [facility] Differential cell count method Nom (Bld) Auto [facility] Eosinophils (Bld) [#/Vol] 0.09 10*3/uL [facility] Eosinophils/100 WBC (Bld) 0.8 % [facility] Erythrocyte distribution width (RBC) [Ratio] 14.6 % 11.5 - 15.0 % [facility] Hematocrit (Bld) [Volume fraction] 33.4 % Low 39.0 - 51.0 % [facility] Hemoglobin (Bld) [Mass/Vol] 11.0 g/dL Low 13.0 - 17.0 g/dL [facility] Immature granulocytes (Bld) [#/Vol] 0.03 10*3/uL [facility] Immature granulocytes/100 WBC (Bld) 0.3 % [facility] Interpretation and review of laboratory results Abnormal [facility] Lymphocytes (Bld) [#/Vol] 1.76 10*3/uL [facility] Lymphocytes/100 WBC (Bld) 16.4 % [facility] MCH (RBC) [Entitic mass] 33.1 pg 26.0 - 34.0 pg [facility] MCHC (RBC) [Mass/Vol] 32.9 g/dL 30.5 - 36.0 g/dL [facility] MCV (RBC) [Entitic vol] 100.6 fL High 80.0 - 100.0 fL [facility] Monocytes (Bld) [#/Vol] 0.69 10*3/uL NINF [facility] Monocytes/100 WBC (Bld) 6.4 % [facility] Neutrophils (Bld) [#/Vol] 8.16 10*3/uL High [facility] Neutrophils/100 WBC (Bld) 75.8 % [facility] Nucleated RBC (Bld) [#/Vol] NINF [facility] Nucleated RBC/100 WBC (Bld) [Ratio] 0.0 % /100 WBC [facility] Platelet mean volume (Bld) [Entitic vol] 9.5 fL 9.0 - 12.7 fL [facility] Platelets (Bld) [#/Vol] 257 10*3/uL [facility] RBC (Bld) [#/Vol] 3.32 10*6/uL Low 4.20 - 6.0 0 m/uL [facility] WBC (Bld) [#/Vol] 10.76 10*3/uL [facility] This is an appended report. These results have been appended to a previously verified report. [facility] CT Chest W contrast Kodi IMPRESSION: [...] any questions regarding this interpretation, please call [phone]. If you are unable to reach us at the number above, please feel free to contact [facility] at [phone]. DIVISION OF RADIOLOGY * * *Final Report* * * DATE OF EXAM: Mar 07 2022 11:25AM [facility] [place] 0539 - CT CHEST W IVCON / [...] on recently performed CT of the abdomen. Disposal Worker (topogram) images: No additional findings. DIVISION OF RADIOLOGY Provider, Angélica Mckeon - 03/07/2022 * * *Final Report* * * DATE OF EXAM: Mar 07 2022 11:25AM [facility] [place] 0539 - CT CHEST W IVCON / [...] on recently performed CT of the abdomen. Disposal Worker (topogram) images: No additional findings. IMPRESSION [...] any questions regarding this interpretation, please call [phone]. If you are unable to reach us at the number above, please feel free to contact [facility] at [phone]. [facility] Radiology Study observation (narrative) [facility] CT Chest W contrast IVOrdere d By: [facility] Provider on 03-07-2022 [facility] Comprehensive metabolic 2000 panelOrdered By: Je Elias on 03-07-2022 Albumin [Mass/Vol] 4.1 g/dL 3.9 - 4.9 g/dL [facility] ALP [Catalytic activity/Vol] 160 U/L High 38 - 113 U/L [facility] ALT [Catalytic activity/Vol] 20 U/L 10 - 54 U/L [facility] Anion gap [Moles/Vol] 8 mmol/L Low 9 - 18 mmol/L [facility] AST [Catalytic activity/Vol] 20 U/L 14 - 40 U/L [facility] Bilirubin [Mass/Vol] 1.1 mg/dL 0.2 - 1 .3 mg/dL [facility] Calcium [Mass/Vol] 10.1 mg/dL 8.5 - 10. 2 mg/dL [facility] Chloride [Moles/Vol] 102 mmol/L 97 - 10 5 mmol/L [facility] CO2 [Moles/Vol] 26 mmol/L 22 - 30 mmol/L [facility] Creatinine [Mass/Vol] 0.72 mg/dL Low 0.73 - 1.22 mg/dL [facility] GFR/1.73 sq M.predicted among non-blacks MDRD (S/P/Bld) [Vol rate/Area] 98 mL/min/{1.73_m2} - PINF [facility] Comment on above: Estimated Glomerular Filtration [...] 113 mg/dL High 74 - 99 mg/dL [facility] Comment on above: The [place] Di[employer] Association (ADA) provides guidance for [...] Standards of Medical Care in Diabetes 2016, [place] [employer]. Diabetes Care. 2016.39(Suppl 1). Interpretation and review of laboratory results Abnormal [facility] Potassium [Moles/Vol] 4.6 mmol/L 3.7 - 5.1 mmol/L [facility] Protein [Mass/Vol] 7.0 g/dL 6.3 - 8.0 g/dL [facility] Sodium [Moles/Vol] 136 mmol/L 136 - 144 mmol/L [facility] Urea nitrogen [Mass/Vol] 18 mg/dL 9 - 24 mg/dL [facility] CREATININE BLDOrdered By: Marianne Bee on 02-15-2022 Creatinine [Mass/Vol] 0.74 mg/dL 0.73 - 1.22 mg/dL [facility] GFR/1.73 sq M.predicted among non-blacks MDRD (S/P/Bld) [Vol rate/Area] 97 mL/min/{1.73_m2} - PINF [facility] Comment on above: Estimated Glomerular Filtration [...] Interpretation and review of laboratory results Normal [facility] CT Pancreas W contrast Kodi 02-15-2022 [...] any questions regarding this interpretation, please call [phone]. If you are unable to reach us at the number above, please feel free to contact [facility] at [phone]. DIVISION OF RADIOLOGY * * *Final Report* * * DATE OF EXAM: Feb 15 2022 11:30AM [facility] [place] [address] - CT PANCREAS W IVCON / [...] size of central mesenteric and retroperitoneal lymphadenopathy. Transfer Car Operator lymph nodes are detailed as follows on [...] secondary to marrow reconversion. Lower thorax: Unremarkable. Disposal Worker (topogram) images: No additional findings. DIVISION OF RADIOLOGY Provider, [facility]/15/[facility]22 * * *Final Report* * * DATE OF EXAM: Feb 15 2022 11:30AM [facility] [address] - CT PANCREAS W IVCON / [...] size of central mesenteric and retroperitoneal lymphadenopathy. Transfer Car Operator lymph nodes are detailed as follows on [...] secondary to marrow reconversion. Lower thorax: Unremarkable. Disposal Worker (topogram) images: No additional findings. IMPRESSION [...] any questions regarding this interpretation, please call [phone]. If you are unable to reach us at the number above, please feel free to contact [facility] at [phone]. [facility] Radiology Study observation (narrative) [facility] CT Pancreas W contrast IVOrd ered By: [facility] Provider on 02-15-2022 [facility] PSA TOTAL AND %FREEon 2021 % FREE PSA 22 % Normal [facility] Comment on above: Result Comment: INTE RPRETIVE INFORMATION: Prostate Specific Antigen, Free Percentage [facility] uses the Connie Free PSA [...] prostate cancer in individual patients. Performed By: [facility] [address] [place] [address] Stretch Machine Operator: Marnie Diaz MD Performed By: #### P SAFT #### [employer] [address] [place] [id number] PSA,FREE 0.4 ng/mL Normal [facility] Comment on above: Performed By: #### P SAFT #### [employer] [address] [place] [address] PSA,TOTAL 1.8 ng/mL Normal 0.0-4.0 [facility] Comment on above: Result Comment: INTE RPRETIVE [...] carcinoma. Performed By: #### P SAFT #### [facility] [address] [place] [address] RESPIRATORY PANEL PLUSon Adenovirus Not detected Normal NOT DETECTED [facility] Comment on above: Performed By: #### R SPLUS #### [facility] [address] [place] [address] Dr. Karen Carter. Parapertusis Not detected Normal NOT DETECTED [facility] Comment on above: Performed By: #### R SPLUS #### [facility] [address] [place] [address] Dr. Karen Carter. Pertussis Not detected Normal NOT DETECTED [facility] Comment on above: Performed By: #### R SPLUS #### [facility] [address] [place] [address] Dr. Karen Connolly Chlamydia Pneumoniae Not detected Normal NOT DETECTED [facility] Comment on above: Performed By: #### R SPLUS #### [facility] [address] [place] [address] Dr. Karen Connolly Coronavirus 229E Not detected Normal NOT DETECTED [facility] Comment on above: Performed By: #### R SPLUS #### [facility] [address] [place] [address] Dr. Karen Connolly Coronavirus HKU1 Not detected Normal NOT DETECTED [facility] Comment on above: Performed By: #### R SPLUS #### [facility] [address] [place] [address] Dr. Karen Connolly Coronavirus NL63 Not detected Normal NOT DETECTED [facility] Comment on above: Performed By: #### R SPLUS #### [facility] [address] [place] [address] Dr. Karen Connolly Coronavirus OC43 Not detected Normal NOT DETECTED [facility] Comment on above: Performed By: #### R SPLUS #### [facility] [address] [place] [address] Dr. Karen Connolly Influenza A H1 2009 Not detected Normal NOT DETECTED [facility] Comment on above: Performed By: #### R SPLUS #### [facility] [address] [place] [address] Dr. Karen Connolly Influenza B Not detected Normal NOT DETECTED [facility] Comment on above: Performed By: #### R SPLUS #### [facility] [address] [place] [address] Dr. Karen Connolly Metapneumovirus Not detected Normal NOT DETECTED [facility] Comment on above: Performed By: #### R SPLUS #### [facility] [address] [place] [address] Dr. Karen Connolly Mycoplas. Pneumoniae Not detected Normal NOT DETECTED [facility] Comment on above: Performed By: #### R SPLUS #### [facility] [address] [place] [address] Dr. Karen Connolly Parainfluenza 1 Not detected Normal NOT DETECTED [facility] Comment on above: Performed By: #### R SPLUS #### [facility] [address] [place] [address] Dr. Karen Connolly Parainfluenza 2 Not detected Normal NOT DETECTED [facility] Comment on above: Performed By: #### R SPLUS #### [facility] [address] [place] [address] Dr. Karen Connolly Parainfluenza 3 Not detected Normal NOT DETECTED [facility] Comment on above: Performed By: #### R SPLUS #### [facility] [address] [place] [address] Dr. Karen Cononlly Parainfluenza 4 Not detected Normal NOT DETECTED [facility] Comment on above: Performed By: #### R SPLUS #### [facility] [address] [place] [address] Dr. Karen Connolly Rhino/Enterovirus Not detected Normal NOT DETECTED [facility] Comment on above: Performed By: #### R SPLUS #### [facility] [address] [place] [address] Dr. Karen Connolly RP2 Header 1 RESPIRATORY PANEL: VIRUSES Normal [facility] Comment on above: Performed By: #### R SPLUS #### [facility] [address] [place] [address] Dr. Karen Connolly RP2 Header 2 RESPIRATORY PANEL: BACTERIA Normal [facility] Comment on above: Performed By: #### R SPLUS #### [facility] [address] [place] [address] Dr. Karen Connolly RSV Not detected Normal NOT DETECTED [facility] Comment on above: Performed By: #### R SPLUS #### [facility] [address] [place] [address] Dr. Karen Connolly SARS-CoV-2 (COVID-19) RNA MIRTHA+probe Ql (Unsp spec) Detected Critically abnormal NOT DETECTED [facility] Comment on above: Performed By: #### R SPLUS #### [facility] [address] [place] [address] Dr. Karen Connolly CBC AUTO DIFFon 03-11-2021 BASO # 0.0 103/ul Normal 0.0-0.1 [facility] Comment on above: Performed By: #### C BC #### [facility] [address] [place] [address] Dr. Karen Connolly Basophils/100 WBC (Bld) 0.4 % Normal 0.2-2.0 [facility] Comment on above: Performed By: #### C BC #### [facility] [address] [place] [address] Dr. Karen Connolly EO # 0.1 103/ul Normal 0.0-0.7 [facility] Comment on above: Performed By: #### C BC #### [facility] [address] [place] [address] Dr. Karen Connolly Eosinophils/100 WBC (Bld) 1.4 % Normal 0.9-7.0 [facility] Comment on above: Performed By: #### C BC #### [facility] [address] [place] [address] Dr. Karen Connolly Erythrocyte distribution width (RBC) [Ratio] 15.0 % Normal 11.0-15.0 [facility] Comment on above: Performed By: #### C BC #### [facility] [address] [place] [address] Dr. Karen Connolly Hematocrit (Bld) [Volume fraction] 31.7 % Critically low 42.0-54.0 [facility] Comment on above: Performed By: #### C BC #### [facility] [address] [place] [address] Dr. Karen Connolly Hemoglobin (Bld) [Mass/Vol] 10.0 g/dL Critically low 14.0-18.0 [facility] Comment on above: Performed By: #### C BC #### [facility] [address] [place] [address] Dr. Karen Connolly IG # 0.02 10e3/ul Normal 0.00-0.03 [facility] Comment on above: Performed By: #### C BC #### [facility] [address] [place] [address] Dr. Karen Connolly IG % 0.2 % Normal 0.0-0.5 [facility] Comment on above: Performed By: #### C BC #### [facility] [address] [place] [address] Dr. Karen Connolly LYMPH # 2.1 103/ul Normal 1.2-3.8 [facility] Comment on above: Performed By: #### C BC #### [facility] [address] [place] [address] Dr. Karen Connolly Lymphocytes/100 WBC (Bld) 26.3 % Normal 20.5-60.0 [facility] Comment on above: Performed By: #### C BC #### [facility] [address] [place] [address] Dr. Karen Connolly MANUAL DIFF REQ NO Normal [facility] Comment on above: Performed By: #### C BC #### [facility] [address] [place] [address] Dr. Karen Connolly MCH (RBC) [Entitic mass] 30.6 pg Normal 25.9-34.0 [facility] Comment on above: Performed By: #### C BC #### [facility] [address] [address] [address] Karen Connolly MCHC (RBC) [Mass/Vol] 31.5 g/dL Normal 29.9-35.2 [facility] Comment on above: Performed By: #### C BC #### [facility] [address] [address] [address] Karen Connolly MCV (RBC) [Entitic vol] 96.9 fL Critically high 80.0-94.0 [facility] Comment on above: Performed By: #### C BC #### [facility] [address] [address] [address] Karen Connolly MONO # 0.5 103/ul Normal 0.3-0.8 [facility] Comment on above: Performed By: #### C BC #### [facility] [address] [place] [address] Dr. Karen Connolly Monocytes/100 WBC (Bld) 6.6 % Normal 1.7-12.0 [facility] Comment on above: Performed By: #### C BC #### [facility] [address] [place] [address] Dr. Karen Connolly NEUT # 5.2 103/ul Normal 1.4-6.5 [facility] Comment on above: Performed By: #### C BC #### [facility] [address] [address] [address] Karen Connolly Neutrophils/100 WBC (Bld) 65.1 % Normal 43.0-75.0 [facility] Comment on above: Performed By: #### C BC #### [facility] [address] [address] [address] Karen Connolly Platelet mean volume (Bld) [Entitic vol] 10.4 fL Normal 9.5-13.5 [facility] Comment on above: Performed By: #### C BC #### [facility] [address] [address] [address] Karen Connloly PLT 280 103/ul Normal 150-450 [facility] Comment on above: Performed By: #### C BC #### [facility] [address] [address] [address] Karen Connolly RBC 3.27 106/ul Critically low 4.70-6.10 [facility] Comment on above: Performed By: #### C BC #### [facility] [address] [place] [address] Dr. Karen Connolly WBC 8.0 103/ul Normal 4.0-11.0 [facility] Comment on above: Performed By: #### C BC #### [facility] [address] [place] [address] Dr. Karen Connolly CBC AUTO DIFFon 03-04-2021 BASO # 0.0 103/ul Normal 0.0-0.1 [facility] Comment on above: Performed By: #### C BC #### [facility] [address] [place] [address] Dr. Karen Connolly Basophils/100 WBC (Bld) 0.4 % Normal 0.2-2.0 [facility] Comment on above: Performed By: #### C BC #### [facility] [address] [place] [address] Dr. Karen Connolly EO # 0.1 103/ul Normal 0.0-0.7 [facility] Comment on above: Performed By: #### C BC #### [facility] [address] [place] [address] Dr. Karen Connolly Eosinophils/100 WBC (Bld) 1.2 % Normal 0.9-7.0 [facility] Comment on above: Performed By: #### C BC #### [facility] [address] [place] [address] Dr. Karen Connolly Erythrocyte distribution width (RBC) [Ratio] 15.4 % Critically high 11.0-15.0 [facility] Comment on above: Performed By: #### C BC #### [facility] [address] [place] [address] Dr. Karen Connolly Hematocrit (Bld) [Volume fraction] 29.7 % Critically low 42.0-54.0 [facility] Comment on above: Performed By: #### C BC #### [facility] [address] [place] [address] Dr. Karen Connolly Hemoglobin (Bld) [Mass/Vol] 9.3 g/dL Critically low 14.0-18.0 [facility] Comment on above: Performed By: #### C BC #### [facility] [address] [place] [address] Dr. Karen Connolly IG # 0.01 10e3/ul Normal 0.00-0.03 [facility] Comment on above: Performed By: #### C BC #### [facility] [address] [place] [address] Dr. Karen Connolly IG % 0.2 % Normal 0.0-0.5 [facility] Comment on above: Performed By: #### C BC #### [facility] [address] [place] [address] Dr. Karen Connolly LYMPH # 1.4 103/ul Normal 1.2-3.8 [facility] Comment on above: Performed By: #### C BC #### [facility] [address] [place] [address] Dr. Karen Connolly Lymphocytes/100 WBC (Bld) 24.7 % Normal 20.5-60.0 [facility] Comment on above: Performed By: #### C BC #### [facility] [address] [place] [address] Dr. Karen Connolly MANUAL DIFF REQ NO Normal [facility] Comment on above: Performed By: #### C BC #### [facility] [address] [place] [address] Dr. Karen Connolly MCH (RBC) [Entitic mass] 30.1 pg Normal 25.9-34.0 [facility] Comment on above: Performed By: #### C BC #### [facility] [address] [place] [address] Dr. Karen Connolly MCHC (RBC) [Mass/Vol] 31.3 g/dL Normal 29.9-35.2 [facility] Comment on above: Performed By: #### C BC #### [facility] [address] [place], [place] [id number] Dr. Karen Connolly MCV (RBC) [Entitic vol] 96.1 fL Critically high 80.0-94.0 [facility] Comment on above: Performed By: #### C BC #### [facility] [address] [place] [address] Dr. Karen Connolly MONO # 0.6 103/ul Normal 0.3-0.8 [facility] Comment on above: Performed By: #### C BC #### [facility] [address] [place] [address] Dr. Karen Connolly Monocytes/100 WBC (Bld) 10.6 % Normal 1.7-12.0 [facility] Comment on above: Performed By: #### C BC #### [facility] [address] [place] [address] Dr. Karen Connolly NEUT # 3.6 103/ul Normal 1.4-6.5 [facility] Comment on above: Performed By: #### C BC #### [facility] [address] [place] [address] Dr. Karen Connolly Neutrophils/100 WBC (Bld) 62.9 % Normal 43.0-75.0 [facility] Comment on above: Performed By: #### C BC #### [facility] [address] [place] [address] Dr. Karen Connolly Platelet mean volume (Bld) [Entitic vol] 10.0 fL Normal 9.5-13.5 [facility] Comment on above: Performed By: #### C BC #### [facility] [address] [place] [address] Dr. Karen Connolly PLT 258 103/ul Normal 150-450 [facility] Comment on above: Performed By: #### C BC #### [facility] [address] [place], [place] [id number] Dr. Karen Connolly RBC 3.09 106/ul Critically low 4.70-6.10 [facility] Comment on above: Performed By: #### C BC #### [facility] [address] [place] [address] Dr. Karen Connolly WBC 5.7 103/ul Normal 4.0-11.0 [facility] Comment on above: Performed By: #### C BC #### [facility] [address] [place] [address] Dr. Karen Connolly CBC AUTO DIFFon 02-25-2021 BASO # 0.1 103/ul Normal 0.0-0.1 [facility] Comment on above: Performed By: #### C BC #### [facility] [address] [place] [address] Dr. Karen Connolly Basophils/100 WBC (Bld) 0.8 % Normal 0.2-2.0 [facility] Comment on above: Performed By: #### C BC #### [facility] [address] [place] [address] Dr. Karen Connolly EO # 0.9 103/ul Critically high 0.0-0.7 [facility] Comment on above: Performed By: #### C BC #### [facility] [address] [place] [address] Dr. Karen Connolly Eosinophils/100 WBC (Bld) 9.7 % Critically high 0.9-7.0 [facility] Comment on above: Performed By: #### C BC #### [facility] [address] [place] [address] Dr. Karen Connolly Erythrocyte distribution width (RBC) [Ratio] 15.1 % Critically high 11.0-15.0 [facility] Comment on above: Performed By: #### C BC #### [facility] [address] [place] [address] Dr. Karen Connolly Hematocrit (Bld) [Volume fraction] 29.3 % Critically low 42.0-54.0 [facility] Comment on above: Performed By: #### C BC #### [facility] [address] [place] [address] Dr. Karen Connolly Hemoglobin (Bld) [Mass/Vol] 9.3 g/dL Critically low 14.0-18.0 [facility] Comment on above: Performed By: #### C BC #### [facility] [address] [place] [address] Dr. Karen Connolly IG # 0.02 10e3/ul Normal 0.00-0.03 [facility] Comment on above: Performed By: #### C BC #### [facility] [address] [place] [address] Dr. Karen Connolly IG % 0.2 % Normal 0.0-0.5 [facility] Comment on above: Performed By: #### C BC #### [facility] [address] [place] [address] Dr. Karen Connolly LYMPH # 2.2 103/ul Normal 1.2-3.8 [facility] Comment on above: Performed By: #### C BC #### [facility] [address] [place] [address] Dr. Karen Connolly Lymphocytes/100 WBC (Bld) 24.3 % Normal 20.5-60.0 [facility] Comment on above: Performed By: #### C BC #### [facility] [address] [place] [address] Dr. Karen Connolly MANUAL DIFF REQ NO Normal [facility] Comment on above: Performed By: #### C BC #### [facility] [address] [place] [address] Dr. Karen Connolly MCH (RBC) [Entitic mass] 30.7 pg Normal 25.9-34.0 [facility] Comment on above: Performed By: #### C BC #### [facility] [address] [place] [address] Dr. Karen Connolly MCHC (RBC) [Mass/Vol] 31.7 g/dL Normal 29.9-35.2 [facility] Comment on above: Performed By: #### C BC #### [facility] [address] [place] [address] Dr. Karen Connolly MCV (RBC) [Entitic vol] 96.7 fL Critically high 80.0-94.0 [facility] Comment on above: Performed By: #### C BC #### [facility] [address] [place] [address] Dr. Karen Connolly MONO # 0.6 103/ul Normal 0.3-0.8 [facility] Comment on above: Performed By: #### C BC #### [facility] [address] [place] [address] Dr. Karen Connolly Monocytes/100 WBC (Bld) 6.9 % Normal 1.7-12.0 [facility] Comment on above: Performed By: #### C BC #### [facility] [address] [place] [address] Dr. Karen Connolly NEUT # 5.3 103/ul Normal 1.4-6.5 [facility] Comment on above: Performed By: #### C BC #### [facility] [address] [place] [address] Dr. Karen Connolly Neutrophils/100 WBC (Bld) 58.1 % Normal 43.0-75.0 [facility] Comment on above: Performed By: #### C BC #### [facility] [address] [place] [address] Dr. Karen Connolly Platelet mean volume (Bld) [Entitic vol] 9.6 fL Normal 9.5-13.5 [facility] Comment on above: Performed By: #### C BC #### [facility] [address] [place] [address] Dr. Karen Connolly PLT 317 103/ul Normal 150-450 [facility] Comment on above: Performed By: #### C BC #### [facility] [address] [place] [address] Dr. Karen Connolly RBC 3.03 106/ul Critically low 4.70-6.10 [facility] Comment on above: Performed By: #### C BC #### [facility] [address] [place] [address] Dr. Karen Connolly WBC 9.0 103/ul Normal 4.0-11.0 [facility] Comment on above: Performed By: #### C BC #### [facility] [address] [place] [address] Dr. Karen Connolly Ambulatory Clinical Summaryo n 08-17-2020 Ambulatory Clinical Summary {[id number] Aurora [facility] Patient Educationon 08-18-19 Patient Education Benign Prostatic [...] Document Reviewed: 01/11/2008 ExitCare? Patient Information ?2013 [employer]. [facility] Urology Office/Clinic Noteon 08-17-2020 Urology Office/Clinic Note [...] When Contact Information GERI GODWIN, Billy Jordan [address] [place] [phone] Additional Instructions: 6mos. kub Patient Education Benign [...] Protein Urine Dipstick: Negative (08/17/20 14:35:00) Specific [place] Urine Dipstick: 1.025 (08/17/20 14:35:00) Urine Appearan (more content not included)... [facility] Comment on above: Result Comment: Elec tronically Signed By: Billy NEVAREZ MD\.br\Date and Time Signed: 08/17/20 15:19 EDT\.br\Electronically Co-Signed By: Eufemia Gomes MA\.br\Date and Time Co-Signed: 08/17/20 15:18 EDT Lab Reportson 05-06-2020 Lab Reports [id number]:12 7 [facility] CBC Auto Differentialon 03-23 Basophils (Bld) [#/Vol] 0.04 10*3/uL [facility], [place] Basophils/100 WBC (Bld) 1 % 0 - 2 % [facility], [place] Differential Type NOT REPORTED [place] Eosinophils (Bld) [#/Vol] 0.05 10*3/uL [place] Eosinophils/100 WBC (Bld) 1 % 1 - 4 % [place] Erythrocyte distribution width (RBC) [Ratio] 19.1 % High 11.8 - 14.4 % [place] Hematocrit (Bld) [Volume fraction] 25.6 % Low 40.7 - 50.3 % [place] Hemoglobin (Bld) [Mass/Vol] 7.7 g/dL Low 13 - 17 g/dL [place] Immature granulocytes (Bld) [#/Vol] 0.05 10*3/uL [place] Immature granulocytes (Bld) [#/Vol] 1 % High 0 [place] Interpretation and review of laboratory results Abnormal [place] Lymphocytes (Bld) [#/Vol] 1.97 10*3/uL [place] Lymphocytes/100 WBC (Bld) 29 % 24 - 43 % [place] MCH (RBC) [Entitic mass] 26.7 pg 25.2 - 33.5 pg [place] MCHC (RBC) [Mass/Vol] 30.1 g/dL 28.4 - 34.8 g/dL [place] MCV (RBC) [Entitic vol] 88.9 fL 82.6 - 102.9 fL [place] Monocytes (Bld) [#/Vol] 0.56 10*3/uL [place] Monocytes/100 WBC (Bld) 8 % 3 - 12 % [place] Platelet mean volume (Bld) [Entitic vol] 8.6 fL 8.1 - 13.5 fL [place] Platelets (Bld) [#/Vol] NOT REPORTED [place] Platelets (Bld) [#/Vol] 474 10*3/uL High [place] RBC (Bld) [#/Vol] 2.88 10*6/uL Low 4.21 - 5.7 7 m/uL [place] RBC morphology finding Nom (Bld) NOT REPORTED [place] Segmented neutrophils/100 WBC (Bld) 60 % 36 - 65 % [place] Segs Absolute 4.21 [place] WBC (Bld) [#/Vol] 0.0 10*3/uL 0.0 per 10 0 WBC [place] WBC (Bld) [#/Vol] 6.9 10*3/uL [place] WBC Morphology NOT REPORTED [place] CBC with Diffon 04-15-2020 Abs. Basophil 0.04 k/uL Normal 0.00-0.20 [facility] Comment on above: Performed By: #### C P, CDP #### [address] [place] [id number] Conveyor Installer: Farhad Turner MD Abs.Imm.Granulocyte 0.05 k/uL Normal 0.00-0.30 [facility] Comment on above: Performed By: #### C P, CDP #### [address] [place]ás[place], [facility]83 Conveyor Installer: Farhad Turner MD Abs.Neutrophil (Seg) 4.21 k/uL Normal 1.50-8.10 [facility] Comment on above: Performed By: #### C P, CDP #### [address] [place] [id number] Conveyor Installer: Farhad Turner MD Basophils/100 WBC (Bld) 1 % Normal 0-2 [facility] Comment on above: Performed By: #### C P, CDP #### [address] [place]ás[place], [facility]83 Conveyor Installer: Farhad Turner MD Eosinophils (Bld) [#/Vol] 0.05 10*3/uL Normal 0.00-0.44 [facility] Comment on above: Performed By: #### C P, CDP #### [address] [place] [id number] Conveyor Installer: Farhad Turner MD Eosinophils/100 WBC (Bld) 1 % Normal 1-4 [facility] Comment on above: Performed By: #### C P, CDP #### [facility] [address] [place] [address] Conveyor Installer: Farhad Turner MD Erythrocyte distribution width (RBC) [Ratio] 19.1 % High 11.8-14.4 [facility] Comment on above: Performed By: #### C P, CDP #### [facility] [address] [place] [address] Conveyor Installer: Farhad Turner MD Hematocrit (Bld) [Volume fraction] 25.6 % Low 40.7-50.3 [facility] Comment on above: Performed By: #### C P, CDP #### [address] [place]ás[place], [facility]83 Conveyor Installer: Farhad Turner MD Hemoglobin (Bld) [Mass/Vol] 7.7 g/dL Low 13.0-17.0 [facility] Comment on above: Performed By: #### C P, CDP #### [address] [place]ás[place], [facility]83 Conveyor Installer: Farhad Turner MD Immature granulocytes (Bld) [#/Vol] 1 % High 0 [facility] Comment on above: Performed By: #### C P, CDP #### [facility] [address] [place], [facility]83 Conveyor Installer: Farhad Turner MD Lymphocytes (Bld) [#/Vol] 1.97 10*3/uL Normal 1.10-3.70 [facility] Comment on above: Performed By: #### C P, CDP #### [address] [place] [address] Conveyor Installer: Farhad Turner MD Lymphocytes/100 WBC (Bld) 29 % Normal 24-43 [facility] Comment on above: Performed By: #### C P, CDP #### [facility] [address] [place], [place] [address] Conveyor Installer: Farhad Turner MD MCH (RBC) [Entitic mass] 26.7 pg Normal 25.2-33.5 [facility] Comment on above: Performed By: #### C P, CDP #### [facility] [address] [place] [facility]83 Conveyor Installer: Farhad Turner MD MCHC (RBC) [Mass/Vol] 30.1 g/dL Normal 28.4-34.8 [facility] Comment on above: Performed By: #### C P, CDP #### [facility] [address] [place] [address] Conveyor Installer: Farhad Turner MD MCV (RBC) [Entitic vol] 88.9 fL Normal 82.6-102.9 [facility] Comment on above: Performed By: #### C P, CDP #### [facility] [address] [place], [facility]83 Conveyor Installer: Farhad Turner MD Monocytes (Bld) [#/Vol] 0.56 10*3/uL Normal 0.10-1.20 [facility] Comment on above: Performed By: #### C P, CDP #### [facility] [address] [place], [place] [address] Conveyor Installer: Farhad Turner MD Monocytes/100 WBC (Bld) 8 % Normal 3-12 [facility] Comment on above: Performed By: #### C P, CDP #### [facility] [address] [place], [place] [address] Conveyor Installer: Farhad Turner MD Neutrophil (Seg) 60 % Normal 36-65 [facility] Comment on above: Performed By: #### C P, CDP #### [facility] [address] [place] [id number] Conveyor Installer: Farhad Turner MD NRBC Automated 0.0 per [address] [facility] Comment on above: Performed By: #### C P, CDP #### [facility] [address] [place], [facility]83 Conveyor Installer: Farhad Turner MD Platelet mean volume (Bld) [Entitic vol] 8.6 fL Normal 8.1-13.5 [facility] Comment on above: Performed By: #### C P, CDP #### [facility] [address] [place], [facility]83 Conveyor Installer: Farhad Turner MD Platelets (Bld) [#/Vol] 474 10*3/uL High 138-453 [facility] Comment on above: Performed By: #### C P, CDP #### [facility] [address] [place], [place] [address] Conveyor Installer: Farhad uTrner MD RBC (Bld) [#/Vol] 2.88 10*6/uL Low 4.21-5.77 [facility] Comment on above: Performed By: #### C P, CDP #### [facility] [address] [place], [facility]83 Conveyor Installer: Farhad Turnre MD WBC (Bld) [#/Vol] 6.9 10*3/uL Normal 3.5-11.3 [facility] Comment on above: Performed By: #### C P, CDP #### [facility] [address] [place], [place] [id number] Conveyor Installer: Farhad Turner MD Auto Diff Performed NOT REPORTED Normal [facility] Comment on above: Performed By: #### C P, CDP #### [facility] [address] [place], [place] [id number] Conveyor Installer: Farhad Turner MD Platelets (Bld) [#/Vol] NOT REPORTED Normal [facility] Comment on above: Performed By: #### C P, CDP #### [facility] [address] [place], [place] [address] Conveyor Installer: Farhad Turner MD RBC morphology finding Nom (Bld) NOT REPORTED Normal [facility] Comment on above: Performed By: #### C P, CDP #### [facility] [address] [place], [place] [address] Conveyor Installer: Farhad Turner MD WBC Morphology NOT REPORTED Normal [facility] Comment on above: Performed By: #### C P, CDP #### [facility] [address] [place], [place] [address] Conveyor Installer: Farhad Turner MD Comp Metabolic Profon 2019 (cont.) Normal [facility] Comment on above: Result Comment: Aver age GFR for 60-69 years old: 85 mL/min/1.73sq m Chronic Kidney Disease: <60 mL/min/1.73sq m Kidney failure: <15 mL/min/1.73sq m eGFR calculated using average adult body mass. Additional eGFR calculator available at: http://www.[employer]/multiple_crcl_2012.htm Performed By: #### C P, CDP #### [facility] [address] [place] [address] Conveyor Installer: Farhad Turner MD Albumin [Mass/Vol] 2.0 g/dL Low 3.5-5.2 [facility] Comment on above: Performed By: #### C P, CDP #### [facility] [address] [place], [place] [address] Conveyor Installer: Farhad Turner MD Albumin/Globulin [Mass ratio] 0.5 {ratio} Low 1.0-2.5 [facility] Comment on above: Performed By: #### C P, CDP #### [facility] [address] [place], [place] [address] Conveyor Installer: Farhad Turner MD Alkaline Phos 74 U/L Normal 40-129 [facility] Comment on above: Performed By: #### C P, CDP #### [facility] [address] [place], [place] [id number] Conveyor Installer: Farhad Turner MD ALT [Catalytic activity/Vol] 6 U/L Normal 5-41 [facility] Comment on above: Performed By: #### C P, CDP #### [facility] [address] [place] [address] Conveyor Installer: Farhad Turner MD Anion gap [Moles/Vol] 5 mmol/L Low 9-17 [facility] Comment on above: Performed By: #### C P, CDP #### [facility] [address] [place], [place] [id number] Conveyor Installer: Farhad Turner MD AST [Catalytic activity/Vol] 12 U/L Normal <40 [facility] Comment on above: Performed By: #### C P, CDP #### [facility] [address] [place], [place] [id number] Conveyor Installer: Farhad Turner MD Bilirubin Ql (U) 0.32 mg/dL Normal 0.3-1.2 [facility] Comment on above: Performed By: #### C P, CDP #### [facility] [address] [place] [address] Conveyor Installer: Farhad Turner MD BUN/CRE Ratio 21 High 9-20 [facility] Comment on above: Performed By: #### C P, CDP #### [facility] [address] [place], [place] [id number] Conveyor Installer: Farhad Turner MD Calcium [Mass/Vol] 9.4 mg/dL Normal 8.6-10.4 [facility] Comment on above: Performed By: #### C P, CDP #### [facility] [address] [place], [place] [id number] Conveyor Installer: Farhad Turner MD Chloride [Moles/Vol] 101 mmol/L Normal 98-107 [facility] Comment on above: Performed By: #### C P, CDP #### [facility] [address] [place], [place] 847[address]83 Conveyor Installer: Farhad Turner MD CO2 [Moles/Vol] 30 mmol/L Normal 20-31 [facility] Comment on above: Performed By: #### C P, CDP #### [facility] [address] [place], [place] 7011283 Conveyor Installer: Farhad Turner MD Creatinine [Mass/Vol] 0.28 mg/dL Low 0.70-1.20 [facility] Comment on above: Performed By: #### C P, CDP #### [facility] [address] [place], [place] [id number] Conveyor Installer: Farhad Turner MD GFR, Amer >60 Normal >60 [facility] Comment on above: Performed By: #### C P, CDP #### [facility] [address] [place], [place] 098[address]83 Conveyor Installer: Farhad Turner MD GFR,non Amer >60 Normal >60 [facility] Comment on above: Performed By: #### C P, CDP #### [facility] [address] [place], [place] [address]398983 Conveyor Installer: Farhad Turner MD Glucose [Mass/Vol] 120 mg/dL High 70-99 [facility] Comment on above: Performed By: #### C P, CDP #### [facility] [address] [place], [place] 3015783 Conveyor Installer: Farhad Turner MD Potassium [Moles/Vol] 3.3 mmol/L Low 3.7-5.3 [facility] Comment on above: Performed By: #### C P, CDP #### [facility] [address] [place], [place] 6998783 Conveyor Installer: Farhad Turner MD Protein [Mass/Vol] 5.9 g/dL Low 6.4-8.3 [facility] Comment on above: Performed By: #### C P, CDP #### [facility] [address] [place] [address] Conveyor Installer: Farhad Turner MD Sodium [Moles/Vol] 136 mmol/L Normal 135-144 [facility] Comment on above: Performed By: #### C P, CDP #### [facility] [address] [place] [address] Conveyor Installer: Farhad Turner MD Staging: Normal [facility] Comment on above: Result Comment: Stag e 1: Some kidney damage normal GFR Stage 2: Mild kidney damage GFR 60-89 Stage 3: Moderate kidney damage GFR 30-59 Stage 4: Severe kidney damage GFR 15-29 Stage 5: Severe kidney damage GFR <15 ESRD - chronic treatment by dialysis or transplant Performed By: #### C P, CDP #### [facility] [address] [place] [address] Conveyor Installer: Farhad Turner MD Urea nitrogen [Mass/Vol] 6 mg/dL Low 8-23 [facility] Comment on above: Performed By: #### C P, CDP #### [facility] [address] [place] [address] Conveyor Installer: Farhad Turner MD [facility] Metabolic [facility] 04-15-2020 Albumin [Mass/Vol] 2 g/dL Low 3.5 - 5.2 g/dL [place] Albumin/Globulin [Mass ratio] 0.5 {ratio} Low [place] ALP [Catalytic activity/Vol] 74 U/L 40 - 129 U/L [place] ALT [Catalytic activity/Vol] 6 U/L 5 - 41 U/L [place] Anion gap [Moles/Vol] 5 mmol/L Low 9 - 17 mmol/L [place] AST [Catalytic activity/Vol] 12 U/L <40 [place] Bilirubin Ql (U) 0.32 mg/dL 0.3 - 1.2 mg/dL [place] Bun/Cre Ratio 21 High [place] Calcium [Mass/Vol] 9.4 mg/dL 8.6 - 10. 4 mg/dL [place] Chloride [Moles/Vol] 101 mmol/L 98 - 10 7 mmol/L [place] CO2 [Moles/Vol] 30 mmol/L 20 - 31 mmol/L [place] Creatinine [Mass/Vol] 0.28 mg/dL Low 0.7 - 1.2 mg/dL [place] GFR >60 >60 mL/min [place] GFR Non- >60 >60 mL/min [place] Glucose [Mass/Vol] 120 mg/dL High 70 - 99 mg/dL [place] Interpretation and review of laboratory results Abnormal [place] Potassium [Moles/Vol] 3.3 mmol/L Low 3.7 - 5.3 mmol/L [place] Protein [Mass/Vol] 5.9 g/dL Low 6.4 - 8.3 g/dL [place] Sodium [Moles/Vol] 136 mmol/L 135 - 144 mmol/L [place] Urea nitrogen [Mass/Vol] 6 mg/dL Low 8 - 23 mg/dL [place] Metabolic Panelon 04-15-2020 GFR/1.73 sq M predicted among non-blacks MDRD (S/P/Bld) [Vol rate/Area] [place] Comment on above: Stage 1: Some [...] body mass. Additional eGFR calculator available at: http://www.[employer]/multiple_crcl_2011.htm Transfer Inon 04-13-2020 Transfer In [id number]:12 7 Normal [facility] CBCon 03-16-2020 Erythrocyte distribution width (RBC) [Ratio] 17.3 % High 11.8 - 14.4 % [place] Hematocrit (Bld) [Volume fraction] 30.0 % Low 40.7 - 50.3 % [place] Hemoglobin (Bld) [Mass/Vol] 8.7 g/dL Low 13 - 17 g/dL [place] Interpretation and review of laboratory results Abnormal [place] MCH (RBC) [Entitic mass] 25.1 pg Low 25.2 - 33.5 pg [place] MCHC (RBC) [Mass/Vol] 29.0 g/dL 28.4 - 34.8 g/dL [place] MCV (RBC) [Entitic vol] 86.5 fL 82.6 - 102.9 fL [place] Platelet mean volume (Bld) [Entitic vol] 8.8 fL 8.1 - 13.5 fL [place] Platelets (Bld) [#/Vol] 471 10*3/uL High [place] RBC (Bld) [#/Vol] 3.47 10*6/uL Low 4.21 - 5.7 7 m/uL [place] WBC (Bld) [#/Vol] 14.6 10*3/uL High [place] WBC (Bld) [#/Vol] 0.0 10*3/uL 0.0 per 10 0 WBC [place] Comprehensive Metabolic Pane kimo 03-16-2020 Albumin [Mass/Vol] 2.1 g/dL Low 3.5 - 5.2 g/dL [place] Albumin/Globulin [Mass ratio] 0.5 {ratio} Low [place] ALP [Catalytic activity/Vol] 54 U/L 40 - 129 U/L [place] ALT [Catalytic activity/Vol] U/L Low 5 - 41 U/L [place] Anion gap [Moles/Vol] 9 mmol/L 9 - 17 mmol/L [place] AST [Catalytic activity/Vol] 9 U/L <40 [place] Bilirubin Ql (U) 0.18 mg/dL Low 0.3 - 1.2 mg/dL [place] Bun/Cre Ratio 18 [place] Calcium [Mass/Vol] 9.7 mg/dL 8.6 - 10. 4 mg/dL [place] Chloride [Moles/Vol] 99 mmol/L 98 - 10 7 mmol/L [place] CO2 [Moles/Vol] 27 mmol/L 20 - 31 mmol/L [place] Creatinine [Mass/Vol] 0.39 mg/dL Low 0.7 - 1.2 mg/dL [place] GFR >60 >60 mL/min [place] GFR Non- >60 >60 mL/min [place] Glucose [Mass/Vol] 98 mg/dL 70 - 99 mg/dL [place] Interpretation and review of laboratory results Abnormal [place] Potassium [Moles/Vol] 3.6 mmol/L Low 3.7 - 5.3 mmol/L [place] Protein [Mass/Vol] 6.3 g/dL Low 6.4 - 8.3 g/dL [place] Sodium [Moles/Vol] 135 mmol/L 135 - 144 mmol/L [place] Urea nitrogen [Mass/Vol] 7 mg/dL Low 8 - 23 mg/dL [place] Metabolic Panelon 03-16-2020 GFR/1.73 sq M predicted among non-blacks MDRD (S/P/Bld) [Vol rate/Area] [place] Comment on above: Average GFR for 60-6 9 years old: 85 mL/min/1.73sq m Chronic Kidney Disease: <60 mL/min/1.73sq m Kidney failure: <15 mL/min/1.73sq m eGFR calculated using average adult body mass. Additional eGFR calculator available at: http://www.[employer]/multiple_crcl_2012.htm Stage 1: Some kidney damage normal GFR Stage 2: Mild kidney damage GFR 60-89 Stage 3: Moderate kidney damage GFR 30-59 Stage 4: Severe kidney damage GFR 15-29 Stage 5: Severe kidney damage GFR <15 ESRD - chronic treatment by dialysis or transplant Transfer Inon 03-13-2020 Transfer In [id number]:12 7 Normal [facility] Lab Reportson 03-06-2020 Lab Reports [id number]#[id number]:12 7 [facility] Reminderson 03-06-2020 Reminders - From: Rain Cade [...] qd #14 proposed. pts was notified.LG Normal [facility] SURGICAL PATHOLOGYon 020 SURGICAL PATHOLOGY ADDENDUM PRESENT Specimen #: [id number] Submitting Physician: JASON MUÑOZ M.D. FINAL DIAGNOSIS [facility], [place], [place]; [phone] (11/13/2019) Duodenum, postbulbar, biopsy (A1, stains) - [...] to contact the GI Consultation Service at [phone] with questions or if additional follow up information becomes available. This case was reviewed in conjunction with the GI pathology fellow, Rajan Bain M.D., Ph.D. IG/HYL//11-19-2019 Walter De Luna M.D., Ph.D. (Electronic Signature) SPECIMEN SUBMITTED A: 6 SLIDES [id number] ADDENDUM Date Ordered: 11/19/2019 Date Reported: 11/19/2019 [...] Location: Diagnostic interpretation performed at [facility], [address] [place] [address]. CLIA Number: [id number] Normal [facility] Comment on above: Performed By: #### S #### See report for performing lab information. Vital Signs Date Time Vital Sign Value Performing Clinician Facility 04-04-2024 10:37-0500 Body temperature 98.4 [degF] [employer] Work Phone: [facility] 04-04-2024 10:37-0500 Diastolic blood pressure 79 mm[Hg] [employer] Work Phone: [facility] 04-04-2024 10:37-0500 Heart rate 84 /min [employer] Work Phone: [facility] 04-04-2024 10:37-0500 Respiratory rate 18 /min [employer] Work Phone: [facility] 04-04-2024 10:37-0500 SaO2% (BldA) [Mass fraction] 98 % [employer] Work Phone: [facility] 04-04-2024 10:37-0500 Systolic blood pressure 136 mm[Hg] Chair Danny Work Phone: [facility] 04-02-2024 09:31-0500 Body height 169.7 cm Yordy Moncada APRN.QUALITY INSPECTOR Work Phone: [facility] 04-02-2024 09:31-0500 Body mass index (BMI) [Ratio] 26.15 kg/m2 oYrdy Moncada APRN.QUALITY INSPECTOR Work Phone: [facility] 04-02-2024 09:31-0500 Body temperature 97.81 [degF] Yordy Moncada APRN.QUALITY INSPECTOR Work Phone: [facility] 04-02-2024 09:31-0500 Body weight 75.3 kg Yordy Moncada APRN.QUALITY INSPECTOR Work Phone: [facility] 04-02-2024 09:31-0500 Diastolic blood pressure 74 mm[Hg] Yordy Moncada APRN.QUALITY INSPECTOR Work Phone: [facility] 04-02-2024 09:31-0500 Heart rate 75 /min Yordy Moncada APRN.QUALITY INSPECTOR Work Phone: [facility] 04-02-2024 09:31-0500 Respiratory rate 16 /min Yordy Moncada APRN.QUALITY INSPECTOR Work Phone: [facility] 04-02-2024 09:31-0500 SaO2% (BldA) [Mass fraction] 99 % Yordy Moncada APRN.QUALITY INSPECTOR Work Phone: [facility] 04-02-2024 09:31-0500 Systolic blood pressure 122 mm[Hg] Yordy Moncada APRN.QUALITY INSPECTOR Work Phone: [facility] 04-01-2024 14:15-0500 Body height 172.7 cm Giovanni Salinas MD Work Phone: [facility] 04-01-2024 14:15-0500 Body mass index (BMI) [Ratio] 25.85 kg/m2 Giovanni Salinas MD Work Phone: [facility] 04-01-2024 14:15-0500 Body temperature 98.6 [degF] Giovanni Salinas MD Work Phone: [facility] 04-01-2024 14:15-0500 Body weight 77.11 kg Giovanni Salinas MD Work Phone: [facility] 04-01-2024 14:15-0500 Diastolic blood pressure 72 mm[Hg] Giovanni Salinas MD Work Phone: [facility] 04-01-2024 14:15-0500 Heart rate 73 /min Giovanni Salinas MD Work Phone: [facility] 04-01-2024 14:15-0500 SaO2% (BldA) [Mass fraction] 98 % Giovanni Salinas MD Work Phone: [facility] 04-01-2024 14:15-0500 Systolic blood pressure 130 mm[Hg] Giovanni Salinas MD Work Phone: [facility] 03-07-2024 10:56-0400 Body temperature 98.1 [degF] Chair [place] Work Phone: [facility] 03-07-2024 10:56-0400 Diastolic blood pressure 70 mm[Hg] Chair [place] Work Phone: [facility] 03-07-2024 10:56-0400 Heart rate 88 /min Chair Danny Work Phone: [facility] 03-07-2024 10:56-0400 Respiratory rate 18 /min Chair [place] Work Phone: [facility] 03-07-2024 10:56-0400 SaO2% (BldA) [Mass fraction] 100 % Chair [place] Work Phone: [facility] 03-07-2024 10:56-0400 Systolic blood pressure 107 mm[Hg] Chair [place] Work Phone: [facility] 03-05-2024 08:42-0400 Body height 169.7 cm Vivek Smith MD Work Phone: [facility] 03-05-2024 08:42-0400 Body mass index (BMI) [Ratio] 26.29 kg/m2 Vivek Smith MD Work Phone: [facility] 03-05-2024 08:42-0400 Body temperature 97.11 [degF] Vivek Smith MD Work Phone: [facility] 03-05-2024 08:42-0400 Body weight 75.7 kg Vivek Smith MD Work Phone: [facility] 03-05-2024 08:42-0400 Diastolic blood pressure 69 mm[Hg] Vivek Smith MD Work Phone: [facility] 03-05-2024 08:42-0400 Heart rate 89 /min Vivek Smith MD Work Phone: [facility] 03-05-2024 08:42-0400 Respiratory rate 16 /min Vivek Smith MD Work Phone: [facility] 03-05-2024 08:42-0400 SaO2% (BldA) [Mass fraction] 99 % Vivek Smith MD Work Phone: [facility] 03-05-2024 08:42-0400 Systolic blood pressure 112 mm[Hg] Vivek Smith MD Work Phone: [facility] 02-14-2024 10:27-0400 Diastolic blood pressure 81 mm[Hg] Chair [place] Work Phone: [facility] 02-14-2024 10:27-0400 Heart rate 79 /min Chair [place] Work Phone: [facility] 02-14-2024 10:27-0400 Respiratory rate 16 /min Chair [place] Work Phone: [facility] 02-14-2024 10:27-0400 SaO2% (BldA) [Mass fraction] 97 % Chair [place] Work Phone: [facility] 02-14-2024 10:27-0400 Systolic blood pressure 125 mm[Hg] Chair Danny Work Phone: [facility] 02-12-2024 08:47-0400 Body mass index (BMI) [Ratio] 26.04 kg/m2 Vivek Smith MD Work Phone: [facility] 02-12-2024 08:47-0400 Body temperature 97.59 [degF] Vivek Smith MD Work Phone: [facility] 02-12-2024 08:47-0400 Body weight 75 kg Vivek Smith MD Work Phone: [facility] 02-12-2024 08:47-0400 Diastolic blood pressure 76 mm[Hg] Vivek Smith MD Work Phone: [facility] 02-12-2024 08:47-0400 Heart rate 82 /min Vivek Smith MD Work Phone: [facility] 02-12-2024 08:47-0400 Respiratory rate 18 /min Vivek Smith MD Work Phone: [facility] 02-12-2024 08:47-0400 SaO2% (BldA) [Mass fraction] 99 % Vivek Smith MD Work Phone: [facility] 02-12-2024 08:47-0400 Systolic blood pressure 117 mm[Hg] Vivek Smiht MD Work Phone: [facility] 01-23-2024 09:29-0400 Body height 169.7 cm Greta Rashard PA-C Work Phone: [facility] 01-23-2024 09:29-0400 Body mass index (BMI) [Ratio] 26.15 kg/m2 Greta Rashard PA-C Work Phone: [facility] 01-23-2024 09:29-0400 Body temperature 97.11 [degF] Greta Rashard PA-C Work Phone: [facility] 01-23-2024 09:29-0400 Body weight 75.3 kg Greta Rashard PA-C Work Phone: [facility] 01-23-2024 09:29-0400 Diastolic blood pressure 81 mm[Hg] Greta Rashard PA-C Work Phone: [facility] 01-23-2024 09:29-0400 Heart rate 82 /min Greta Rashard PA-C Work Phone: [facility] 01-23-2024 09:29-0400 Respiratory rate 16 /min Greta Rashard PA-C Work Phone: [facility] 01-23-2024 09:29-0400 SaO2% (BldA) [Mass fraction] 100 % Greta Rashard PA-C Work Phone: [facility] 01-23-2024 09:29-0400 Systolic blood pressure 124 mm[Hg] Greta Rashard PA-C Work Phone: [facility] 01-05-2024 11:02-0400 Body temperature 97.7 [degF] Chair [place] Work Phone: [facility] 01-05-2024 11:02-0400 Diastolic blood pressure 73 mm[Hg] Chair [place] Work Phone: [facility] 01-05-2024 11:02-0400 Heart rate 71 /min Chair Danny Work Phone: [facility] 01-05-2024 11:02-0400 Respiratory rate 18 /min Chair [place] Work Phone: [facility] 01-05-2024 11:02-0400 SaO2% (BldA) [Mass fraction] 99 % Chair Danny Work Phone: [facility] 01-05-2024 11:02-0400 Systolic blood pressure 108 mm[Hg] Chair [place] Work Phone: [facility] 01-03-2024 09:37-0400 Body height 169.7 cm Greta Rashard PA-C Work Phone: [facility] 01-03-2024 09:37-0400 Body mass index (BMI) [Ratio] 26.18 kg/m2 Greta Rashard PA-C Work Phone: [facility] 01-03-2024 09:37-0400 Body temperature 97.39 [degF] Greta Rashard PA-C Work Phone: [facility] 01-03-2024 09:37-0400 Body weight 75.4 kg Greta Rashard PA-C Work Phone: [facility] 01-03-2024 09:37-0400 Diastolic blood pressure 84 mm[Hg] Greta Rashard PA-C Work Phone: [facility] 01-03-2024 09:37-0400 Heart rate 75 /min Greta Rashard PA-C Work Phone: [facility] 01-03-2024 09:37-0400 Respiratory rate 16 /min Greta Rashard PA-C Work Phone: [facility] 01-03-2024 09:37-0400 SaO2% (BldA) [Mass fraction] 99 % Greta Rashard PA-C Work Phone: [facility] 01-03-2024 09:37-0400 Systolic blood pressure 128 mm[Hg] Greta Rashard PA-C Work Phone: [facility] 12-13-2023 12:05-0400 Body temperature 98.2 [degF] Chair [place] Work Phone: [facility] 12-13-2023 12:05-0400 Diastolic blood pressure 78 mm[Hg] Chair [place] Work Phone: [facility] 12-13-2023 12:05-0400 Heart rate 72 /min Chair Danny Work Phone: [facility] 12-13-2023 12:05-0400 Respiratory rate 18 /min Chair Danny Work Phone: [facility] 12-13-2023 12:05-0400 SaO2% (BldA) [Mass fraction] 98 % Chair [place] Work Phone: [facility] 12-13-2023 12:05-0400 Systolic blood pressure 110 mm[Hg] Chair Danny Work Phone: [facility] 12-11-2023 10:04-0400 Body mass index (BMI) [Ratio] 25.87 kg/m2 Vivek Smith MD Work Phone: [facility] 12-11-2023 10:04-0400 Body temperature 97.9 [degF] Vivek Smith MD Work Phone: [facility] 12-11-2023 10:04-0400 Body weight 74.5 kg Vivek Smith MD Work Phone: [facility] 12-11-2023 10:04-0400 Diastolic blood pressure 69 mm[Hg] Vivek Smith MD Work Phone: [facility] 12-11-2023 10:04-0400 Heart rate 84 /min Vivek Smith MD Work Phone: [facility] 12-11-2023 10:04-0400 Respiratory rate 16 /min Vivek Smith MD Work Phone: [facility] 12-11-2023 10:04-0400 SaO2% (BldA) [Mass fraction] 99 % Vivek Smith MD Work Phone: [facility] 12-11-2023 10:04-0400 Systolic blood pressure 107 mm[Hg] Vivek Smith MD Work Phone: [facility] 11-22-2023 10:29-0400 Body temperature 98.2 [degF] Chair [place] Work Phone: [facility] 11-22-2023 10:29-0400 Diastolic blood pressure 72 mm[Hg] Chair [place] Work Phone: [facility] 11-22-2023 10:29-0400 Heart rate 75 /min Chair [place] Work Phone: [facility] 11-22-2023 10:29-0400 Respiratory rate 18 /min Chair Danny Work Phone: [facility] 11-22-2023 10:29-0400 SaO2% (BldA) [Mass fraction] 98 % Chair [place] Work Phone: [facility] 11-22-2023 10:29-0400 Systolic blood pressure 115 mm[Hg] Chair Danny Work Phone: [facility] 11-20-2023 08:14-0400 Body height 169.7 cm Vivek Smith MD Work Phone: [facility] 11-20-2023 08:14-0400 Body mass index (BMI) [Ratio] 25.55 kg/m2 Vivek Smith MD Work Phone: [facility] 11-20-2023 08:14-0400 Body temperature 97.3 [degF] Vivek Smith MD Work Phone: [facility] 11-20-2023 08:14-0400 Body weight 73.57 kg Vivek Smith MD Work Phone: [facility] 11-20-2023 08:14-0400 Diastolic blood pressure 77 mm[Hg] Vivek Smith MD Work Phone: [facility] 11-20-2023 08:14-0400 Heart rate 77 /min Vivek Smith MD Work Phone: [facility] 11-20-2023 08:14-0400 Respiratory rate 16 /min Vivek Smith MD Work Phone: [facility] 11-20-2023 08:14-0400 SaO2% (BldA) [Mass fraction] 99 % Vivek Smith MD Work Phone: [facility] 11-20-2023 08:14-0400 Systolic blood pressure 134 mm[Hg] Vivek Smith MD Work Phone: [facility] 11-02-2023 12:34-0400 Body temperature 97.59 [degF] Chair [place] Work Phone: [facility] 11-02-2023 12:34-0400 Diastolic blood pressure 61 mm[Hg] Chair Danny Work Phone: [facility] 11-02-2023 12:34-0400 Heart rate 86 /min Chair [place] Work Phone: [facility] 11-02-2023 12:34-0400 Respiratory rate 18 /min Chair [place] Work Phone: [facility] 11-02-2023 12:34-0400 SaO2% (BldA) [Mass fraction] 98 % Chair Danny Work Phone: [facility] 11-02-2023 12:34-0400 Systolic blood pressure 104 mm[Hg] Chair Danny Work Phone: [facility] 10-31-2023 10:34-0400 Body height 169.7 cm Grace Bess MD Work Phone: [facility] 10-31-2023 10:34-0400 Body mass index (BMI) [Ratio] 24.38 kg/m2 Grace Bess MD Work Phone: [facility] 10-31-2023 10:34-0400 Body temperature 97.2 [degF] Grace Bess MD Work Phone: [facility] 10-31-2023 10:34-0400 Body weight 70.2 kg Grace Bess MD Work Phone: [facility] 10-31-2023 10:34-0400 Diastolic blood pressure 81 mm[Hg] Grace Bess MD Work Phone: [facility] 10-31-2023 10:34-0400 Heart rate 75 /min Grace Bess MD Work Phone: [facility] 10-31-2023 10:34-0400 Respiratory rate 16 /min Grace Bess MD Work Phone: [facility] 10-31-2023 10:34-0400 SaO2% (BldA) [Mass fraction] 100 % Grace Bess MD Work Phone: [facility] 10-31-2023 10:34-0400 Systolic blood pressure 118 mm[Hg] Grace Bess MD Work Phone: [facility] 10-13-2023 11:35-0400 Body temperature 97.59 [degF] Chair Danny Work Phone: [facility] 10-13-2023 11:35-0400 Diastolic blood pressure 71 mm[Hg] Chair Danny Work Phone: [facility] 10-13-2023 11:35-0400 Heart rate 83 /min Chair [place] Work Phone: [facility] 10-13-2023 11:35-0400 Respiratory rate 16 /min Chair [place] Work Phone: [facility] 10-13-2023 11:35-0400 SaO2% (BldA) [Mass fraction] 100 % Chair Danny Work Phone: [facility] 10-13-2023 11:35-0400 Systolic blood pressure 107 mm[Hg] Chair Danny Work Phone: [facility] 10-11-2023 10:02-0400 Diastolic blood pressure 67 mm[Hg] Chair [place] Work Phone: [facility] Comment on above: Rechecked in tx room 10-11-2023 10:02-0400 Systolic blood pressure 100 mm[Hg] Chair Danny Work Phone: [facility] Comment on above: Rechecked in tx room 10-11-2023 09:27-0400 Body height 169.7 cm Greta Wetzel PA-C Work Phone: [facility] 10-11-2023 09:27-0400 Body mass index (BMI) [Ratio] 24.48 kg/m2 Greta Wetzel PA-C Work Phone: [facility] 10-11-2023 09:27-0400 Body temperature 98.01 [degF] Greta Rashard PA-C Work Phone: [facility] 10-11-2023 09:27-0400 Body weight 70.5 kg Greta Rashard PA-C Work Phone: [facility] 10-11-2023 09:27-0400 Diastolic blood pressure 56 mm[Hg] Greta Rashard PA-C Work Phone: [facility] 10-11-2023 09:27-0400 Heart rate 87 /min Greta Rashard PA-C Work Phone: [facility] 10-11-2023 09:27-0400 Respiratory rate 16 /min Greta Rashard PA-C Work Phone: [facility] 10-11-2023 09:27-0400 SaO2% (BldA) [Mass fraction] 100 % Greta Rashard PA-C Work Phone: [facility] 10-11-2023 09:27-0400 Systolic blood pressure 85 mm[Hg] Greta Rashard PA-C Work Phone: [facility] 10-03-2023 11:15-0400 Body height 169.7 cm Greta Rashard PA-C Work Phone: [facility] 10-03-2023 11:15-0400 Body mass index (BMI) [Ratio] 25.56 kg/m2 Greta Rashard PA-C Work Phone: [facility] 10-03-2023 11:15-0400 Body temperature 97.5 [degF] Greta Rashard PA-C Work Phone: [facility] 10-03-2023 11:15-0400 Body weight 73.6 kg Greta Rashard PA-C Work Phone: [facility] 10-03-2023 11:15-0400 Diastolic blood pressure 53 mm[Hg] Greta Rashard PA-C Work Phone: [facility] 10-03-2023 11:15-0400 Heart rate 81 /min Greta Rashard PA-C Work Phone: [facility] 10-03-2023 11:15-0400 Respiratory rate 16 /min Greta Rashard PA-C Work Phone: [facility] 10-03-2023 11:15-0400 SaO2% (BldA) [Mass fraction] 98 % Gretaskye Cardenaser PA-C Work Phone: [facility] 10-03-2023 11:15-0400 Systolic blood pressure 83 mm[Hg] Greta Rashard PA-C Work Phone: [facility] 09-15-2023 13:05-0400 Body temperature 97.9 [degF] Chair Danny Work Phone: [facility] 09-15-2023 13:05-0400 Diastolic blood pressure 68 mm[Hg] Chair [place] Work Phone: [facility] 09-15-2023 13:05-0400 Heart rate 77 /min Chair [place] Work Phone: [facility] 09-15-2023 13:05-0400 Respiratory rate 18 /min Chair [place] Work Phone: [facility] 09-15-2023 13:05-0400 SaO2% (BldA) [Mass fraction] 98 % Chair Danny Work Phone: [facility] 09-15-2023 13:05-0400 Systolic blood pressure 114 mm[Hg] Chair [place] Work Phone: [facility] 09-13-2023 11:29-0400 Body height 169.7 cm Yordy Moncada APRN.CNP Work Phone: [facility] 09-13-2023 11:29-0400 Body mass index (BMI) [Ratio] 24.76 kg/m2 Yordy Moncada APRN.QUALITY INSPECTOR Work Phone: [facility] 09-13-2023 11:29-0400 Body temperature 97.59 [degF] Yordy Moncada [employer].QUALITY INSPECTOR Work Phone: [facility] 09-13-2023 11:29-0400 Body weight 71.3 kg Yordy Moncada [employer]ER.QUALITY INSPECTOR Work Phone: [facility] 09-13-2023 11:29-0400 Diastolic blood pressure 63 mm[Hg] Yordy Moncada [employer]ER.QUALITY INSPECTOR Work Phone: [facility] 09-13-2023 11:29-0400 Heart rate 75 /min Yordy Moncada [employer]ER.QUALITY INSPECTOR Work Phone: [facility] 09-13-2023 11:29-0400 Respiratory rate 16 /min Yordy Moncada [employer]ER.QUALITY INSPECTOR Work Phone: [facility] 09-13-2023 11:29-0400 SaO2% (BldA) [Mass fraction] 99 % Yordy Moncada [employer]ER.QUALITY INSPECTOR Work Phone: [facility] 09-13-2023 11:29-0400 Systolic blood pressure 106 mm[Hg] Yordy Moncada [employer]ER.QUALITY INSPECTOR Work Phone: [facility] 08-23-2023 10:36-0400 Body height 169.7 cm Grace Bess MD Work Phone: [facility] 08-23-2023 10:36-0400 Body temperature 97.59 [degF] Grace Bess MD Work Phone: [facility] 08-23-2023 10:36-0400 Body weight 72.5 kg Grace Bess MD Work Phone: [facility] 08-23-2023 10:36-0400 Diastolic blood pressure 72 mm[Hg] Grace Bess MD Work Phone: [facility] 08-23-2023 10:36-0400 Heart rate 88 /min Grace Bess MD Work Phone: [facility] 08-23-2023 10:36-0400 Respiratory rate 16 /min Grace Bess MD Work Phone: [facility] 08-23-2023 10:36-0400 SaO2% (BldA) [Mass fraction] 98 % Grace Bess MD Work Phone: [facility] 08-23-2023 10:36-0400 Systolic blood pressure 108 mm[Hg] Grace Bess MD Work Phone: [facility] 08-04-2023 12:40-0400 Body temperature 97.5 [degF] Chair [place] Work Phone: [facility] 08-04-2023 12:40-0400 Diastolic blood pressure 64 mm[Hg] Chair Danny Work Phone: [facility] 08-04-2023 12:40-0400 Heart rate 82 /min Chair [place] Work Phone: [facility] 08-04-2023 12:40-0400 Respiratory rate 16 /min Chair [place] Work Phone: [facility] 08-04-2023 12:40-0400 SaO2% (BldA) [Mass fraction] 98 % Chair Danny Work Phone: [facility] 08-04-2023 12:40-0400 Systolic blood pressure 95 mm[Hg] Chair [place] Work Phone: [facility] 08-02-2023 10:32-0400 Body height 169.7 cm Grace Bess MD Work Phone: [facility] 08-02-2023 10:32-0400 Body temperature 97.5 [degF] Grace Bess MD Work Phone: [facility] 08-02-2023 10:32-0400 Body weight 71.2 kg Grace Bess MD Work Phone: [facility] 08-02-2023 10:32-0400 Diastolic blood pressure 68 mm[Hg] Grace Bess MD Work Phone: [facility] 08-02-2023 10:32-0400 Heart rate 85 /min Grace Bess MD Work Phone: [facility] 08-02-2023 10:32-0400 Respiratory rate 16 /min Grace Bess MD Work Phone: [facility] 08-02-2023 10:32-0400 SaO2% (BldA) [Mass fraction] 100 % Grace Bess MD Work Phone: [facility] 08-02-2023 10:32-0400 Systolic blood pressure 96 mm[Hg] Grace Bess MD Work Phone: [facility] 07-21-2023 11:57-0500 Body temperature 98.1 [degF] Chair [place] Work Phone: [facility] 07-21-2023 11:57-0500 Diastolic blood pressure 65 mm[Hg] Chair Danny Work Phone: [facility] 07-21-2023 11:57-0500 Heart rate 78 /min Chair Danny Work Phone: [facility] 07-21-2023 11:57-0500 Respiratory rate 18 /min Chair [place] Work Phone: [facility] 07-21-2023 11:57-0500 SaO2% (BldA) [Mass fraction] 100 % Chair [place] Work Phone: [facility] 07-21-2023 11:57-0500 Systolic blood pressure 96 mm[Hg] Chair [place] Work Phone: [facility] 07-19-2023 10:14-0500 Body height 169.7 cm Yordy Moncada APRN.QUALITY INSPECTOR Work Phone: [facility] 07-19-2023 10:14-0500 Body temperature 97.59 [degF] Yordy Moncada APRN.QUALITY INSPECTOR Work Phone: [facility] 07-19-2023 10:14-0500 Body weight 71.5 kg Yordy Moncada APRN.QUALITY INSPECTOR Work Phone: [facility] 07-19-2023 10:14-0500 Diastolic blood pressure 58 mm[Hg] Yordy Moncada [employer]ER.QUALITY INSPECTOR Work Phone: [facility] 07-19-2023 10:14-0500 Heart rate 67 /min Yordy Moncada [employer]ER.QUALITY INSPECTOR Work Phone: [facility] 07-19-2023 10:14-0500 Respiratory rate 16 /min Yordy Moncada [employer]ER.QUALITY INSPECTOR Work Phone: [facility] 07-19-2023 10:14-0500 SaO2% (BldA) [Mass fraction] 99 % Yordy Moncada APRN.QUALITY INSPECTOR Work Phone: [facility] 07-19-2023 10:14-0500 Systolic blood pressure 100 mm[Hg] Yordy Moncada [employer]ER.QUALITY INSPECTOR Work Phone: [facility] 07-07-2023 12:40-0500 Body temperature 97.7 [degF] Chair [place] Work Phone: [facility] 07-07-2023 12:40-0500 Diastolic blood pressure 69 mm[Hg] Chair Danny Work Phone: [facility] 07-07-2023 12:40-0500 Heart rate 75 /min Chair Danny Work Phone: [facility] 07-07-2023 12:40-0500 Respiratory rate 18 /min Chair [place] Work Phone: [facility] 07-07-2023 12:40-0500 SaO2% (BldA) [Mass fraction] 98 % Chair Danny Work Phone: [facility] 07-07-2023 12:40-0500 Systolic blood pressure 103 mm[Hg] Chair [place] Work Phone: [facility] 07-05-2023 10:46-0500 Body height 169.7 cm Yordy Moncada APRN.QUALITY INSPECTOR Work Phone: [facility] 07-05-2023 10:46-0500 Body temperature 97 [degF] Yordy Moncada APRN.QUALITY INSPECTOR Work Phone: [facility] 07-05-2023 10:46-0500 Body weight 72.3 kg Yordy Moncada APRN.QUALITY INSPECTOR Work Phone: [facility] 07-05-2023 10:46-0500 Diastolic blood pressure 68 mm[Hg] Yordy Moncada APRN.QUALITY INSPECTOR Work Phone: [facility] 07-05-2023 10:46-0500 Heart rate 92 /min Yordy Moncada APRN.QUALITY INSPECTOR Work Phone: [facility] 07-05-2023 10:46-0500 Respiratory rate 16 /min Yordy Moncada APRN.QUALITY INSPECTOR Work Phone: [facility] 07-05-2023 10:46-0500 SaO2% (BldA) [Mass fraction] 97 % Yordy Moncada APRN.QUALITY INSPECTOR Work Phone: [facility] 07-05-2023 10:46-0500 Systolic blood pressure 96 mm[Hg] Yordy Moncada APRN.QUALITY INSPECTOR Work Phone: [facility] 06-23-2023 10:28-0500 Body temperature 97.7 [degF] Chair [place] Work Phone: [facility] 06-23-2023 10:28-0500 Diastolic blood pressure 76 mm[Hg] Chair [place] Work Phone: [facility] 06-23-2023 10:28-0500 Heart rate 83 /min Chair [place] Work Phone: [facility] 06-23-2023 10:28-0500 Respiratory rate 16 /min Chair Danny Work Phone: [facility] 06-23-2023 10:28-0500 SaO2% (BldA) [Mass fraction] 100 % Chair [place] Work Phone: [facility] 06-23-2023 10:28-0500 Systolic blood pressure 117 mm[Hg] Chair Delgado Work Phone: [facility] 05-05-2023 12:59-0500 Body height 171.4 cm Grace Bess MD Work Phone: [facility] 05-05-2023 12:59-0500 Body temperature 97 [degF] Grace Bess MD Work Phone: [facility] 05-05-2023 12:59-0500 Body weight 73.9 kg Grace Bess MD Work Phone: [facility] 05-05-2023 12:59-0500 Diastolic blood pressure 80 mm[Hg] Grace Bess MD Work Phone: [facility] 05-05-2023 12:59-0500 Heart rate 90 /min Grace Bess MD Work Phone: [facility] 05-05-2023 12:59-0500 Respiratory rate 20 /min Grace Bess MD Work Phone: [facility] 05-05-2023 12:59-0500 SaO2% (BldA) [Mass fraction] 100 % rGace Bess MD Work Phone: [facility] 05-05-2023 12:59-0500 Systolic blood pressure 137 mm[Hg] Grace Bess MD Work Phone: [facility] 04-05-2023 13:49-0500 Body height 171.4 cm Yordy Moncada APRN.QUALITY INSPECTOR Work Phone: [facility] 04-05-2023 13:49-0500 Body temperature 97.59 [degF] Yordy Moncada [employer] BOILER.QUALITY INSPECTOR Work Phone: [facility] 04-05-2023 13:49-0500 Body weight 77.84 kg Yordy Moncada [employer] BOILER.QUALITY INSPECTOR Work Phone: [facility] 04-05-2023 13:49-0500 Diastolic blood pressure 69 mm[Hg] Yordy Moncada [employer] BOILER.QUALITY INSPECTOR Work Phone: [facility] 04-05-2023 13:49-0500 Heart rate 88 /min Yordy Moncada [employer] BOILER.QUALITY INSPECTOR Work Phone: [facility] 04-05-2023 13:49-0500 Respiratory rate 16 /min Yordy Moncada [employer]EL[employer] BOILER.QUALITY INSPECTOR Work Phone: [facility] 04-05-2023 13:49-0500 SaO2% (BldA) [Mass fraction] 99 % Yordy Moncada [employer] BOILER.QUALITY INSPECTOR Work Phone: [facility] 04-05-2023 13:49-0500 Systolic blood pressure 100 mm[Hg] Yordy Moncada [employer] BOILER.QUALITY INSPECTOR Work Phone: [facility] 03-30-2023 13:19-0500 Diastolic blood pressure 67 mm[Hg] Greta Rashard PA-C Work Phone: [facility] 03-30-2023 13:19-0500 Systolic blood pressure 116 mm[Hg] Greta Rashard PA-C Work Phone: [facility] 03-30-2023 13:15-0500 Body height 171.4 cm Greta Rashard PA-C Work Phone: [facility] 03-30-2023 13:15-0500 Body temperature 97.59 [degF] Greta Rashard PA-C Work Phone: [facility] 03-30-2023 13:15-0500 Body weight 77.2 kg Greta Rashard PA-C Work Phone: [facility] 03-30-2023 13:15-0500 Heart rate 90 /min Greta Rashard PA-C Work Phone: [facility] 03-30-2023 13:15-0500 Respiratory rate 16 /min Greta Rashard PA-C Work Phone: [facility] 03-30-2023 13:15-0500 SaO2% (BldA) [Mass fraction] 99 % Greta Wetzel PA-C Work Phone: [facility] 03-08-2023 13:32-0400 Body height 171.4 cm Grace Bess MD Work Phone: [facility] 03-08-2023 13:32-0400 Body temperature 97.59 [degF] Grace Bess MD Work Phone: [facility] 03-08-2023 13:32-0400 Body weight 78.02 kg Grace Bess MD Work Phone: [facility] 03-08-2023 13:32-0400 Diastolic blood pressure 71 mm[Hg] Grace Bess MD Work Phone: [facility] 03-08-2023 13:32-0400 Heart rate 90 /min Grace Bess MD Work Phone: [facility] 03-08-2023 13:32-0400 Respiratory rate 16 /min Grace Bess MD Work Phone: [facility] 03-08-2023 13:32-0400 SaO2% (BldA) [Mass fraction] 100 % Grace Bess MD Work Phone: [facility] 03-08-2023 13:32-0400 Systolic blood pressure 104 mm[Hg] Grace Bess MD Work Phone: [facility] 02-08-2023 12:46-0400 Body height 171.4 cm Yordy Moncada APRN.QUALITY INSPECTOR Work Phone: [facility] 02-08-2023 12:46-0400 Body temperature 97.5 [degF] Yordy Moncada [employer] BOILER.QUALITY INSPECTOR Work Phone: [facility] 02-08-2023 12:46-0400 Body weight 81.1 kg Yordy Moncada [employer]T [employer] BOILER.QUALITY INSPECTOR Work Phone: [facility] 02-08-2023 12:46-0400 Diastolic blood pressure 63 mm[Hg] Yordy Moncada REMELT [employer] BOILER.QUALITY INSPECTOR Work Phone: [facility] 02-08-2023 12:46-0400 Heart rate 86 /min Yordy Moncada [employer]EL[employer] BOILER.QUALITY INSPECTOR Work Phone: [facility] 02-08-2023 12:46-0400 Respiratory rate 16 /min Yordy Moncada [employer]ER.QUALITY INSPECTOR Work Phone: [facility] 02-08-2023 12:46-0400 SaO2% (BldA) [Mass fraction] 100 % Yordy Moncada REMELT [employer]GAR BOILER.QUALITY INSPECTOR Work Phone: [facility] 02-08-2023 12:46-0400 Systolic blood pressure 117 mm[Hg] Yordy Moncada [employer]EL[employer]GAR BOILER.QUALITY INSPECTOR Work Phone: [facility] 02-01-2023 11:16-0400 Body height 171.4 cm Grace Bess MD Work Phone: [facility] 02-01-2023 11:16-0400 Body temperature 97.3 [degF] Grace Bess MD Work Phone: [facility] 02-01-2023 11:16-0400 Body weight 79.74 kg Grace Bess MD Work Phone: [facility] 02-01-2023 11:16-0400 Diastolic blood pressure 70 mm[Hg] Grace Bess MD Work Phone: [facility] 02-01-2023 11:16-0400 Heart rate 81 /min Grace Bess MD Work Phone: [facility] 02-01-2023 11:16-0400 Respiratory rate 16 /min Grace Bess MD Work Phone: [facility] 02-01-2023 11:16-0400 SaO2% (BldA) [Mass fraction] 99 % Grace Bess MD Work Phone: [facility] 02-01-2023 11:16-0400 Systolic blood pressure 104 mm[Hg] Grace Bess MD Work Phone: [facility] 01-04-2023 13:00-0400 Body height 171.4 cm Grace Bses MD Work Phone: [facility] 01-04-2023 13:00-0400 Body temperature 97.2 [degF] Grace Bess MD Work Phone: [facility] 01-04-2023 13:00-0400 Body weight 82.74 kg Grace Bess MD Work Phone: [facility] 01-04-2023 13:00-0400 Diastolic blood pressure 63 mm[Hg] Grace Bess MD Work Phone: [facility] 01-04-2023 13:00-0400 Heart rate 78 /min Grace Bess MD Work Phone: [facility] 01-04-2023 13:00-0400 Respiratory rate 18 /min Grace Bess MD Work Phone: [facility] 01-04-2023 13:00-0400 SaO2% (BldA) [Mass fraction] 100 % Grace Bess MD Work Phone: [facility] 01-04-2023 13:00-0400 Systolic blood pressure 104 mm[Hg] Grace Bess MD Work Phone: [facility] 12-21-2022 09:40-0400 Body height 171.4 cm Greta Wetzel PA-C Work Phone: [facility] 12-21-2022 09:40-0400 Body temperature 97.11 [degF] Greta Wetzel PA-C Work Phone: [facility] 12-21-2022 09:40-0400 Body weight 82.64 kg Greta Wetzel PA-C Work Phone: [facility] 12-21-2022 09:40-0400 Diastolic blood pressure 68 mm[Hg] Greta Rashard PA-C Work Phone: [facility] 12-21-2022 09:40-0400 Heart rate 94 /min Greta Rashard PA-C Work Phone: [facility] 12-21-2022 09:40-0400 Respiratory rate 20 /min Greta Rashard PA-C Work Phone: [facility] 12-21-2022 09:40-0400 SaO2% (BldA) [Mass fraction] 100 % Greta Rashard PA-C Work Phone: [facility] 12-21-2022 09:40-0400 Systolic blood pressure 103 mm[Hg] Rgeta Rashard PA-C Work Phone: [facility] 12-15-2022 16:25-0400 Diastolic blood pressure 74 mm[Hg] II Giovanni Salinas Work Phone: [facility] 12-15-2022 16:25-0400 Heart rate 67 /min II Giovanni Salinas Work Phone: [facility] 12-15-2022 16:25-0400 Respiratory rate 18 /min II Giovanni Salinas Work Phone: [facility] 12-15-2022 16:25-0400 SaO2% (BldA) [Mass fraction] 100 % II Giovanni Salinas Work Phone: [facility] 12-15-2022 16:25-0400 Systolic blood pressure 105 mm[Hg] II Giovanni Salinas Work Phone: [facility] 12-15-2022 15:19-0400 Body height 170.18 cm II Giovanni Salinas Work Phone: [facility] 12-15-2022 15:19-0400 Body temperature 97.5 [degF] II Giovannialf Salinas Work Phone: [facility] 12-15-2022 15:19-0400 Body weight 85.9 kg MARIO Salinas Work Phone: [facility] 12-05-2022 11:14-0400 Body height 171.4 cm Greta Rashard PA-C Work Phone: [facility] 12-05-2022 11:14-0400 Body temperature 97 [degF] Greta Rashard PA-C Work Phone: [facility] 12-05-2022 11:14-0400 Body weight 83.55 kg Greta Arshard PA-C Work Phone: [facility] 12-05-2022 11:14-0400 Diastolic blood pressure 51 mm[Hg] Greta Rashard PA-C Work Phone: [facility] 12-05-2022 11:14-0400 Heart rate 97 /min Greta Rashard PA-C Work Phone: [facility] 12-05-2022 11:14-0400 Respiratory rate 16 /min Greta Rashard PA-C Work Phone: [facility] 12-05-2022 11:14-0400 SaO2% (BldA) [Mass fraction] 100 % Greta Rashard PA-C Work Phone: [facility] 12-05-2022 11:14-0400 Systolic blood pressure 97 mm[Hg] Greta Rashard PA-C Work Phone: [facility] 11-30-2022 10:33-0400 Body height 171.4 cm Grace Bess MD Work Phone: [facility] 11-30-2022 10:33-0400 Body temperature 96.69 [degF] Grace Bess MD Work Phone: [facility] 11-30-2022 10:33-0400 Body weight 83.92 kg Grace Bess MD Work Phone: [facility] 11-30-2022 10:33-0400 Diastolic blood pressure 67 mm[Hg] Grace Bess MD Work Phone: [facility] 11-30-2022 10:33-0400 Heart rate 68 /min Grace Bess MD Work Phone: [facility] 11-30-2022 10:33-0400 Respiratory rate 16 /min Grace Bess MD Work Phone: [facility] 11-30-2022 10:33-0400 SaO2% (BldA) [Mass fraction] 98 % Grace Bess MD Work Phone: [facility] 11-30-2022 10:33-0400 Systolic blood pressure 117 mm[Hg] Grace Bess MD Work Phone: [facility] 11-23-2022 13:45-0400 Body height 169.8 cm Greta Rashard PA-C Work Phone: [facility] 11-23-2022 13:45-0400 Body temperature 97.3 [degF] Greta Rashard PA-C Work Phone: [facility] 11-23-2022 13:45-0400 Body weight 83.64 kg Greta Rashard PA-C Work Phone: [facility] 11-23-2022 13:45-0400 Diastolic blood pressure 64 mm[Hg] Greta Rashard PA-C Work Phone: [facility] 11-23-2022 13:45-0400 Heart rate 92 /min Greta Rashard PA-C Work Phone: [facility] 11-23-2022 13:45-0400 Respiratory rate 16 /min Greta Rashard PA-C Work Phone: [facility] 11-23-2022 13:45-0400 SaO2% (BldA) [Mass fraction] 100 % Greta Rashard PA-C Work Phone: [facility] 11-23-2022 13:45-0400 Systolic blood pressure 106 mm[Hg] Greta Rashard PA-C Work Phone: [facility] 11-10-2022 09:41-0400 Body height 169.8 cm Grace Bess MD Work Phone: [facility] 11-10-2022 09:41-0400 Body temperature 97.3 [degF] Grace Bses MD Work Phone: [facility] 11-10-2022 09:41-0400 Body weight 82.64 kg Grace Bess MD Work Phone: [facility] 11-10-2022 09:41-0400 Diastolic blood pressure 77 mm[Hg] Grace Bess MD Work Phone: [facility] 11-10-2022 09:41-0400 Heart rate 80 /min Grace Bess MD Work Phone: [facility] 11-10-2022 09:41-0400 Respiratory rate 16 /min Grace Bess MD Work Phone: [facility] 11-10-2022 09:41-0400 SaO2% (BldA) [Mass fraction] 99 % Grace Bess MD Work Phone: [facility] 11-10-2022 09:41-0400 Systolic blood pressure 110 mm[Hg] Grace Bess MD Work Phone: [facility] 09-29-2022 10:19-0400 Body height 169.8 cm Grace Bess MD Work Phone: [facility] 09-29-2022 10:19-0400 Body temperature 97.59 [degF] Grace Bess MD Work Phone: [facility] 09-29-2022 10:19-0400 Body weight 90.27 kg Grace Bess MD Work Phone: [facility] 09-29-2022 10:19-0400 Diastolic blood pressure 74 mm[Hg] Grace Bess MD Work Phone: [facility] 09-29-2022 10:19-0400 Heart rate 69 /min Grace Bess MD Work Phone: [facility] 09-29-2022 10:19-0400 Respiratory rate 16 /min Grace Bess MD Work Phone: [facility] 09-29-2022 10:19-0400 SaO2% (BldA) [Mass fraction] 97 % Grace Bess MD Work Phone: [facility] 09-29-2022 10:19-0400 Systolic blood pressure 140 mm[Hg] Grace Bess MD Work Phone: [facility] 08-02-2022 10:20-0400 Body height 169.8 cm Grace Bess MD Work Phone: [facility] 08-02-2022 10:20-0400 Body temperature 97.59 [degF] Grace Bess MD Work Phone: [facility] 08-02-2022 10:20-0400 Body weight 90.81 kg Grace Bess MD Work Phone: [facility] 08-02-2022 10:20-0400 Diastolic blood pressure 74 mm[Hg] Grace Bess MD Work Phone: [facility] 08-02-2022 10:20-0400 Heart rate 75 /min Grace Bess MD Work Phone: [facility] 08-02-2022 10:20-0400 Respiratory rate 16 /min Grace Bess MD Work Phone: [facility] 08-02-2022 10:20-0400 SaO2% (BldA) [Mass fraction] 99 % Grace Bess MD Work Phone: [facility] 08-02-2022 10:20-0400 Systolic blood pressure 145 mm[Hg] Grace Bess MD Work Phone: [facility] 06-29-2022 10:37-0500 Body height 169.8 cm Grace Bess MD Work Phone: [facility] 06-29-2022 10:37-0500 Body temperature 97.59 [degF] Grace Bess MD Work Phone: [facility] 06-29-2022 10:37-0500 Body weight 89.45 kg Grace Bess MD Work Phone: [facility] 06-29-2022 10:37-0500 Diastolic blood pressure 77 mm[Hg] Grace Bess MD Work Phone: [facility] 06-29-2022 10:37-0500 Heart rate 81 /min Grace Bess MD Work Phone: [facility] 06-29-2022 10:37-0500 Respiratory rate 18 /min Grace Bess MD Work Phone: [facility] 06-29-2022 10:37-0500 SaO2% (BldA) [Mass fraction] 99 % Grace Bess MD Work Phone: [facility] 06-29-2022 10:37-0500 Systolic blood pressure 137 mm[Hg] Grace Bess MD Work Phone: [facility] 05-11-2022 09:23-0500 Body height 169.8 cm Grace Bess MD Work Phone: [facility] 05-11-2022 09:23-0500 Body temperature 97.5 [degF] Grace Bess MD Work Phone: [facility] 05-11-2022 09:23-0500 Body weight 88.72 kg Grace Bess MD Work Phone: [facility] 05-11-2022 09:23-0500 Diastolic blood pressure 70 mm[Hg] Grace Bess MD Work Phone: [facility] 05-11-2022 09:23-0500 Heart rate 76 /min Grace Bess MD Work Phone: [facility] 05-11-2022 09:23-0500 Respiratory rate 16 /min Grace Bess MD Work Phone: [facility] 05-11-2022 09:23-0500 SaO2% (BldA) [Mass fraction] 98 % Grace Bess MD Work Phone: [facility] 05-11-2022 09:23-0500 Systolic blood pressure 130 mm[Hg] Grace Bess MD Work Phone: [facility] 04-27-2022 08:50-0500 Body height 169.8 cm Yordy Moncada APRN.QUALITY INSPECTOR Work Phone: [facility] 04-27-2022 08:50-0500 Body temperature 97.39 [degF] Yordy Moncada [employer]ELT SUGAR BOILER.QUALITY INSPECTOR Work Phone: [facility] 04-27-2022 08:50-0500 Body weight 87.64 kg Yordy Moncada APRN.QUALITY INSPECTOR Work Phone: [facility] 04-27-2022 08:50-0500 Diastolic blood pressure 68 mm[Hg] Yordy Moncada APRN.QUALITY INSPECTOR Work Phone: [facility] 04-27-2022 08:50-0500 Heart rate 79 /min Yordy Moncada APRN.QUALITY INSPECTOR Work Phone: [facility] 04-27-2022 08:50-0500 Respiratory rate 16 /min Yordy Moncada APRN.QUALITY INSPECTOR Work Phone: [facility] 04-27-2022 08:50-0500 SaO2% (BldA) [Mass fraction] 99 % Yordy Moncada APRN.QUALITY INSPECTOR Work Phone: [facility] 04-27-2022 08:50-0500 Systolic blood pressure 136 mm[Hg] Yordy Moncada APRN.QUALITY INSPECTOR Work Phone: [facility] 04-06-2022 11:57-0500 Body height 169.8 cm Greta Rashard PA-C Work Phone: [facility] 04-06-2022 11:57-0500 Body temperature 97.3 [degF] Greta Rashard PA-C Work Phone: [facility] 04-06-2022 11:57-0500 Body weight 88.81 kg Greta Rashard PA-C Work Phone: [facility] 04-06-2022 11:57-0500 Diastolic blood pressure 73 mm[Hg] Greta Rashard PA-C Work Phone: [facility] 04-06-2022 11:57-0500 Heart rate 76 /min Greta Rashard PA-C Work Phone: [facility] 04-06-2022 11:57-0500 Respiratory rate 16 /min Greta Rashard PA-C Work Phone: [facility] 04-06-2022 11:57-0500 SaO2% (BldA) [Mass fraction] 100 % Greta Rashard PA-C Work Phone: [facility] 04-06-2022 11:57-0500 Systolic blood pressure 125 mm[Hg] Greta Rashard PA-C Work Phone: [facility] 03-30-2022 10:46-0500 Body height 169.8 cm Greta Rashard PA-C Work Phone: [facility] 03-30-2022 10:46-0500 Body temperature 97.81 [degF] Greta Rashard PA-C Work Phone: [facility] 03-30-2022 10:46-0500 Body weight 87.64 kg Greta Rashard PA-C Work Phone: [facility] 03-30-2022 10:46-0500 Diastolic blood pressure 72 mm[Hg] Greta Rashard PA-C Work Phone: [facility] 03-30-2022 10:46-0500 Heart rate 69 /min Greta Rashard PA-C Work Phone: [facility] 03-30-2022 10:46-0500 Respiratory rate 16 /min Greta Rashard PA-C Work Phone: [facility] 03-30-2022 10:46-0500 SaO2% (BldA) [Mass fraction] 98 % Greta Rashard PA-C Work Phone: [facility] 03-30-2022 10:46-0500 Systolic blood pressure 136 mm[Hg] Greta Rashard PA-C Work Phone: [facility] 03-16-2022 08:36-0400 Body height 169.8 cm Greta Rashard PA-C Work Phone: [facility] 03-16-2022 08:36-0400 Body temperature 97.81 [degF] Greta Rashard PA-C Work Phone: [facility] 03-16-2022 08:36-0400 Body weight 87.45 kg Greta Rashard PA-C Work Phone: [facility] 03-16-2022 08:36-0400 Diastolic blood pressure 75 mm[Hg] Greta Rashard PA-C Work Phone: [facility] 03-16-2022 08:36-0400 Heart rate 70 /min Greta Rashard PA-C Work Phone: [facility] 03-16-2022 08:36-0400 Respiratory rate 16 /min Greta Rashard PA-C Work Phone: [facility] 03-16-2022 08:36-0400 SaO2% (BldA) [Mass fraction] 97 % Greta Rashard PA-C Work Phone: [facility] 03-16-2022 08:36-0400 Systolic blood pressure 143 mm[Hg] Greta Rashard PA-C Work Phone: [facility] 03-09-2022 08:59-0400 Body height 172.7 cm Grace Bess MD Work Phone: [facility] 03-09-2022 08:59-0400 Body temperature 97.5 [degF] Grace Bess MD Work Phone: [facility] 03-09-2022 08:59-0400 Body weight 86.27 kg Grace Bess MD Work Phone: [facility] 03-09-2022 08:59-0400 Diastolic blood pressure 66 mm[Hg] Grace Bess MD Work Phone: [facility] 03-09-2022 08:59-0400 Heart rate 70 /min Grace Bess MD Work Phone: [facility] 03-09-2022 08:59-0400 Respiratory rate 16 /min Grace Bses MD Work Phone: [facility] 03-09-2022 08:59-0400 SaO2% (BldA) [Mass fraction] 98 % Grace Bess MD Work Phone: [facility] 03-09-2022 08:59-0400 Systolic blood pressure 143 mm[Hg] Grace Bess MD Work Phone: [facility] 02-22-2022 10:17-0400 Body height 172.7 cm Grace Bess MD Work Phone: [facility] 02-22-2022 10:17-0400 Body temperature 98.01 [degF] Grace Bess MD Work Phone: [facility] 02-22-2022 10:17-0400 Body weight 86.46 kg Grace Bess MD Work Phone: [facility] 02-22-2022 10:17-0400 Diastolic blood pressure 73 mm[Hg] Grace Bess MD Work Phone: [facility] 02-22-2022 10:17-0400 Heart rate 70 /min Grace Bess MD Work Phone: [facility] 02-22-2022 10:17-0400 Respiratory rate 16 /min Grace Bess MD Work Phone: [facility] 02-22-2022 10:17-0400 SaO2% (BldA) [Mass fraction] 99 % Grace Bess MD Work Phone: [facility] 02-22-2022 10:17-0400 Systolic blood pressure 135 mm[Hg] Grace Bess MD Work Phone: [facility] 10-22-2021 11:10-0400 Diastolic blood pressure 76 mm[Hg] Eyad Manriquez MD Work Phone: [facility] 10-22-2021 11:10-0400 Heart rate 64 /min Eyad Manriquez MD Work Phone: [facility] 10-22-2021 11:10-0400 Respiratory rate 16 /min Eyad Manriquez MD Work Phone: [facility] 10-22-2021 11:10-0400 SaO2% (BldA) [Mass fraction] 98 % Eyad Manriquez MD Work Phone: [facility] 10-22-2021 11:10-0400 Systolic blood pressure 130 mm[Hg] Eyad Manriquez MD Work Phone: [facility] 10-22-2021 10:50-0400 Body temperature 97.7 [degF] Eyad Manriquez MD Work Phone: [facility] 10-22-2021 09:48-0400 Body height 172.7 cm Eyad Manriquez MD Work Phone: [facility] 10-22-2021 09:48-0400 Body weight 86.18 kg Eyad Manriquez MD Work Phone: [facility] Encounters Encounter Date Encounter Type Care [...] 03-05-2024 End: 03-05-2024 ambulatory [facility] [place] Work Phone: Hematology/Oncology Comment on above: Malignant [...] 02-12-2024 End: 02-12-2024 ambulatory [facility] [place] Work Phone: Hematology/Oncology Comment on above: Malignant neoplasm o f head of pancreas (HCC) Malignant neoplasm o f head of pancreas (HCC) (Primary Dx) Start: 01-25-2024 End: 01-25-2024 ambulatory Chair 20 [facility] Work Phone: Hematology/Oncology Comment on above: Malignant neoplasm o f head of pancreas (HCC) (Primary Dx) Start: 01-23-2024 End: 01-23-2024 Office outpatient visit 15 minutes Greta Wetzel [employer] Work Phone: Hematology/Oncology Comment on above: Malignant neoplasm o f head of pancreas (HCC) (Primary Dx) Start: 01-23-2024 End: 01-23-2024 ambulatory Lab/[facility] [place] Work Phone: Hematology/Oncology Comment on above: Malignant [...] 01-03-2024 Office outpatient visit 15 minutes Greta [employer] Work Phone: Hematology/Oncology Comment on above: Malignant neoplasm o f head of pancreas (HCC) (Primary Dx); Central line complication, initial encounter Start: 01-03-2024 End: 01-03-2024 ambulatory [facility] [place] Work Phone: Hematology/Oncology Comment on above: Malignant neoplasm o f head of pancreas (HCC) Malignant neoplasm o f head of pancreas (HCC) (Primary Dx) Start: 01-02-2024 End: 01-10-2024 Telephone encounter Greta ODENRemitly Work Phone: Hematology/Oncology Comment on above: Lab Orders Start: 12-29-2023 End: 12-29-2023 ambulatory KARUNAKARAVEL KARUPPASAMY Facility:[facility] Start: 12-27-2023 Telephone encounter Adina Schmitz RN [facility] Radiology Procedure Comment on above: Radiology Pre Proced ure Instructions Start: 12-26-2023 Telephone encounter Luisa Cameron RN [facility] Radiology Procedure Comment on above: Radiology Pre Proced ure Instructions Start: 12-25-2023 Telephone encounter Donnell Swenson RN [facility] Radiology Procedure Start: 12-13-2023 End: 12-13-2023 ambulatory Chair 20 [place] Work Phone: Hematology/Oncology Comment on above: Malignant neoplasm o f head of pancreas (HCC) (Primary Dx) Start: 12-11-2023 End: 12-11-2023 Patient encounter procedure Vivek Smith MD Work Phone: Hematology/Oncology Start: 12-11-2023 End: 12-11-2023 ambulatory Lab[facility] [place] Work Phone: Hematology/Oncology Comment on above: Malignant [...] Start: 11-22-2023 End: 11-22-2023 ambulatory Chair 20 [employer] Work Phone: Hematology/Oncology Comment on above: Malignant neoplasm o f head of pancreas (HCC) (Primary Dx) Refill Request; PORT ; Clinical Update Start: 11-20-2023 End: 11-20-2023 Patient encounter procedure Vivek Smith MD Work Phone: Hematology/Oncology Start: 11-20-2023 End: 11-21-2023 ambulatory [facility] [place] Work Phone: Hematology/Oncology Comment on above: Malignant neoplasm o f head of pancreas (HCC) Malignant neoplasm o f head of pancreas (HCC) (Primary Dx) Start: 11-17-2023 End: 11-17-2023 ambulatory GIOVANNI SALINAS II Facility:[facility] Start: 11-17-2023 End: 11-17-2023 Subsequent hospital [...] 10-31-2023 End: 11-01-2023 ambulatory Lab[facility] [place] Work Phone: Hematology/Oncology Comment on above: Malignant [...] encounter [facility] woodson PA-C [facility] Comment on above: [facility] [...] 10-03-2023 End: 10-03-2023 ambulatory [facility] [place] Work Phone: Hematology/Oncology Comment on above: Malignant [...] 09-13-2023 End: 09-13-2023 ambulatory [facility] [place] Work Phone: Hematology/Oncology Comment on above: Malignant neoplasm o f head of pancreas (HCC) Malignant neoplasm o f head of pancreas (HCC) (Primary Dx) Start: 08-25-2023 End: 08-25-2023 ambulatory GIOVANNI SALINAS II Facility:[facility] Start: 08-23-2023 End: 08-23-2023 Patient encounter procedure Grace Bess MD Work Phone: [facility] Start: 08-23-2023 End: 08-23-2023 ambulatory Lab[facility] [place] Work Phone: Hematology/Oncology Comment on above: Malignant neoplasm o f head of pancreas (HCC) Malignant neoplasm o f head of pancreas (HCC) (Primary Dx) Start: 08-18-2023 End: 08-18-2023 ambulatory GIOVANNI SALINAS II Facility:[facility] Start: 08-18-2023 End: 08-18-2023 Subsequent hospital visit by physician Arrival Time Radiology Work Phone: [facility] Comment on above: Malignant neoplasm o f head of pancreas (HCC) [C25.0] Start: 08-09-2023 Telephone encounter Josephine Salomon RN Work Phone: Hematology/Oncology Comment on above: Care Coordination (A ppointment cancellation) Start: 08-04-2023 End: 08-04-2023 ambulatory GIOVANNI Raul SALINAS Facility:[facility] Start: 08-04-2023 End: 08-04-2023 ambulatory Chair 20 [facility] Work Phone: Hematology/Oncology Comment on above: Malignant neoplasm o f head of pancreas (HCC) (Primary Dx) Start: 08-02-2023 End: 08-02-2023 Patient encounter procedure Grace Bess MD Work Phone: [facility] Start: 08-02-2023 End: 08-02-2023 ambulatory [facility] [place] [facility] [place] Work Phone: [facility] Comment on above: Malignant neoplasm o f head of pancreas (HCC) (Primary Dx) Start: 08-02-2023 End: 08-02-2023 Nutrition therapy Lab/[place] Work Phone: Hematology/Oncology Comment on above: Malignant neoplasm o f head of pancreas (HCC); Type 2 diabetes mellitus without complication, with long-term current use of insulin (HCC); Neuropathy; Severe protein-calorie malnutrition (HCC) Start: 07-21-2023 End: 07-21-2023 ambulatory Chair 20 [place] Work Phone: Hematology/Oncology Comment on above: Malignant [...] End: 07-05-2023 Patient encounter procedure Yordy Moncada APRN.QUALITY INSPECTOR Work Phone: [facility] Start: 07-05-2023 End: 07-05-2023 ambulatory [facility] [place] Work Phone: Hematology/Oncology Comment on above: Malignant [...] End: 06-21-2023 ambulatory GIOVANNI B SALINAS II Facility:[facility] Start: 06-21-2023 End: 06-21-2023 ambulatory GIOVANNI B SALINAS II Facility:[facility] Start: 06-09-2023 End: 06-09-2023 ambulatory GIOVANNI B SALINAS II Facility:[facility] Start: 06-07-2023 End: 06-07-2023 ambulatory GIOVANNI B SALINAS II Facility:[facility] Start: 06-07-2023 End: 06-07-2023 ambulatory GIOVANNI B SALINAS II Facility:[facility] Start: 05-24-2023 End: 05-24-2023 ambulatory GIOVANNI B SALINAS II Facility:[facility] Start: 05-18-2023 End: 05-18-2023 ambulatory GIOVANNI B BRAD II Facility:[facility] Start: 05-18-2023 End: 05-18-2023 Subsequent hospital visit by physician Arrival Time Radiology Work Phone: Radiology [facility] Comment on above: Malignant neoplasm o f head of pancreas (HCC) [C25.0] Start: 05-12-2023 End: 05-12-2023 ambulatory GIOVANNI B BRAD II Facility:[facility] Start: 05-08-2023 Telephone encounter Grace rebolledo MD Work Phone: Hematology/Oncology Comment on above: Orders Start: 05-05-2023 End: 05-05-2023 Patient encounter procedure Grace Bess MD Work Phone: [employer] Start: 05-05-2023 End: 05-08-2023 ambulatory Grace Bess MD Work Phone: Hematology/Oncology Comment on above: Malignant neoplasm o f head of pancreas (HCC) (Primary Dx) Start: 05-05-2023 End: 05-05-2023 Nutrition therapy [place] Work Phone: Hematology/Oncology Comment on above: Type 2 diabetes chris itus without complication, with long-term current use of insulin (HCC); Severe protein-calorie malnutrition (HCC); Malignant neoplasm of head of pancreas (HCC); Anemia, unspecified type Start: 04-27-2023 End: 04-27-2023 ambulatory GIOVANNI Raul SALINAS Not Available Start: 04-25-2023 Patient encounter status Generic Provider [facility] Start: 04-07-2023 Telephone encounter Josephine Salomon RN Work Phone: Hematology/Oncology Comment on above: Care Coordination (T umor marker results) Start: 04-05-2023 End: 04-05-2023 Nutrition therapy Yordy Moncada APRN.QUALITY INSPECTOR Work Phone: Hematology/Oncology Comment on above: Malignant neoplasm o f head of pancreas (HCC) (Primary Dx); Type 2 diabetes mellitus without complication, with long-term current use of insulin (HCC); Severe protein-calorie malnutrition (HCC); Anemia, unspecified type Start: 04-05-2023 End: 04-05-2023 Patient encounter procedure Yordy Moncada APRN.QUALITY INSPECTOR Work Phone: [facility] Start: 04-05-2023 End: 04-05-2023 [...] 02-08-2023 End: 02-08-2023 Nutrition therapy Yordy Moncada APRN.QUALITY INSPECTOR Work Phone: Hematology/Oncology Comment on above: Malignant neoplasm o f other parts of pancreas (HCC) (Primary Dx); Type 2 diabetes mellitus without complication, with long-term current use of insulin (HCC); LINDSEY (dyspnea on exertion); Severe protein-calorie malnutrition (HCC) Start: 02-08-2023 End: 02-08-2023 Patient encounter procedure Yordy Moncada APRN.QUALITY INSPECTOR Work Phone: [facility] Start: 02-01-2023 Telephone encounter [...] patient visit II Giovanni Brad Work Phone: [facility] Work Phone: Start: 12-14-2022 End: 12-14-2022 ambulatory Lab/[facility] [place] Work Phone: Hematology/Oncology Comment on above: Malignant neoplasm o f head of pancreas (HCC) Malignant neoplasm o f head of pancreas (HCC) (Primary Dx) Start: 12-06-2022 Patient encounter procedure [facility] Provider [facility] Start: 12-05-2022 Telephone encounter Grace [...] encounter procedure Greta Wetzel PA-C Work Phone: [place] Start: 12-05-2022 End: 12-05-2022 ambulatory Lab/[facility] [place] Work Phone: Hematology/Oncology Comment on above: Malignant neoplasm o f head of pancreas (HCC) Start: 11-30-2022 End: 11-30-2022 Patient encounter procedure Grace Bess MD Work Phone: [facility] Start: 11-30-2022 End: 11-30-2022 ambulatory Lab/[place] [facility] [place] Work Phone: Hematology/Oncology Comment on above: Malignant [...] encounter Greta woodson PA-C Work Phone: Cancer [facility] Comment on above: Future Appointment Start: [...] Comment on above: Research (IRB# [id number] Informed Consent) Start: 11-03-2022 End: 11-03-2022 Subsequent hospital visit by physician Arrival Time Radiology Work Phone: Radiology Pet CT Comment on above: Malignant neoplasm o f head of pancreas (HCC) [C25.0] Start: 09-29-2022 End: 09-29-2022 Patient encounter procedure Grace Bess MD Work Phone: [facility] Start: 09-29-2022 End: 09-29-2022 ambulatory Grace Bess MD Work Phone: Hematology/Oncology Comment on above: Malignant neoplasm o f head of pancreas (HCC) (Primary Dx) Malignant neoplasm o f head of pancreas (HCC) Start: 08-03-2022 Refill Adina Colón [facility] HB-3 Comment on above: Refill Request [...] 06-01-2022 End: 06-01-2022 ambulatory Lab/[place] [facility] [place] Work Phone: Hematology/Oncology Comment on above: Malignant [...] 05-11-2022 End: 05-11-2022 ambulatory Lab[facility] [facility] [place] Work Phone: Hematology/Oncology Comment on above: Malignant neoplasm o f head of pancreas (HCC); Anemia, unspecified type Malignant neoplasm o f head of pancreas (HCC) (Primary Dx) Start: 04-27-2022 End: 04-27-2022 ambulatory Chair 12 [place] Work Phone: Hematology/Oncology Comment on above: Malignant neoplasm o f head of pancreas (HCC) (Primary Dx) Malignant neoplasm o f head of pancreas (HCC) (Primary Dx); Anemia, unspecified type Start: 04-27-2022 End: 04-27-2022 Patient encounter procedure Yordy Moncada APRN.CNP Work Phone: [place] Start: 04-26-2022 End: 04-26-2022 ambulatory Lab[facility] Work Phone: Hematology/Oncology Comment on above: Malignant neoplasm o f head of pancreas (HCC) Start: 04-20-2022 Telephone encounter Josephine Salomon RN Work Phone: Hematology/Oncology Comment on above: Care Coordination (M edication clarification) Start: 04-20-2022 End: 04-20-2022 ambulatory Lab[facility] [place] [facility] [place] Work Phone: Hematology/Oncology Comment on above: Malignant [...] Telephone encounter Jose Antonio LARSON Work Phone: [facility] Comment on above: Results Start: 03-17-2022 Telephone encounter Josephine Salomon RN Work Phone: Hematology/Oncology Comment on above: Care Coordination (S tool results) Start: 03-16-2022 End: 03-16-20[address] Nutrition therapy Ibis Harvey RD Work Phone: Nutrition Therapy Comment on above: Nutrition Counseling Start: 03-16-2022 End: 03-16-2022 Telemedicine consultation with patient Jose Antonio LARSON Work Phone: [facility] Start: 03-16-2022 End: 03-16-2022 [...] ntiemetics transferred to [facility] in [place]) Start: 03-09-2022 End: 03-09-[address] Ibis Harvey RD Work Phone: Nutrition Therapy Comment on above: Nutrition Assessment Start: 03-09-2022 End: 03-09-2022 Patient encounter procedure Grace Bess MD Work Phone: [place] Start: 03-07-2022 Telephone encounter Josephine Salomon RN [...] Start: 02-25-2022 Telephone encounter Vel Sims RN [facility] Radiology Procedure Comment on above: Radiology Pre Proced ure Instructions Start: 02-23-2022 Orders Only Antoinette Marina RN [facility] Radiology Procedure Comment on above: [...] encounter procedure Grace Bess MD Work Phone: [place] Start: 02-17-2022 End: 02-18-2022 Patient encounter procedure [...] End: 02-11-2021 Evaluation and management of inpatient [facility] Start: 01-22-2021 End: 02-19-[address] [...] End: 04-16-2020 Patient encounter procedure FARA MONACO [facility] Start: 04-15-2020 End: 04-15-2020 Subsequent hospital visit by physician Giovanni Salinas [facility] Start: 03-16-2020 End: 03-17-2020 Patient encounter procedure GIOVANNI SALINAS [facility] Start: 03-16-2020 End: 03-16-2020 Subsequent hospital visit by physician Giovanni Salinas [facility] Start: 11-23-2019 Patient encounter status Eyad Manriquez MD Work Phone: [facility] Work Phone: Procedures Date Procedure Procedure [...] count complete auto&auto difrntl wbc Yordy Moncada [employer].QUALITY INSPECTOR Work Phone: Start: 07-19-2023 Blood count complete auto&auto difrntl wbc Yordy Moncada [employer] BOILER.QUALITY INSPECTOR Work Phone: Start: 07-05-2023 [facility] CBC W [...] count complete auto&auto difrntl wbc Yordy Moncada [employer]ER.QUALITY INSPECTOR Work Phone: Start: 04-05-2023 Blood count complete auto&auto difrntl wbc Yordy Moncada [employer]ER.QUALITY INSPECTOR Work Phone: Start: 03-08-2023 Blood count complete [...] count complete auto&auto difrntl wbc Yordy Moncada [employer]EL[employer] BO[employer]ER.QUALITY INSPECTOR Work Phone: Start: 04-26-2022 Blood count complete [...] Start: 12-15-2032 Urine microalbumin profile [facility] Start: 12-04-2030 Screening for malign ant neoplasm of colon [facility] Start: 11-12-2029 Screening for malign ant neoplasm of colon [facility] Start: 05-05-2026 Diabetes Screening Diabetes Screenin jania [facility] Start: 04-05-2026 Diabetes Screening Diabetes Screenin jania [facility] Start: 03-30-2026 Diabetes Screening Diabetes Screenin g [facility] Start: 03-08-2026 Diabetes Screening Diabetes Screenin g [facility] Start: 03-01-2026 Diabetes Screening Diabetes Screenin jania [facility] Start: 02-08-2026 Diabetes Screening Diabetes Screenin g [facility] Start: 02-01-2026 Diabetes Screening Diabetes Screenin g [facility] Start: 01-04-2026 DIABETES SCREEN DIABETES SCREEN [facility] Start: 12-21-2025 DIABETES SCREEN DIABETES SCREEN [facility] Start: 12-14-2025 DIABETES SCREEN DIABETES SCREEN [facility] Start: 11-30-2025 DIABETES SCREEN DIABETES SCREEN [facility] Start: 11-23-2025 DIABETES SCREEN DIABETES SCREEN [facility] Start: 11-10-2025 DIABETES SCREEN DIABETES SCREEN [facility] Start: 10-26-2025 DIABETES SCREEN DIABETES SCREEN [facility] Start: 09-29-2025 DIABETES SCREEN DIABETES SCREEN [facility] Start: 08-02-2025 DIABETES SCREEN DIABETES SCREEN [facility] Start: 06-29-2025 DIABETES SCREEN DIABETES SCREEN [facility] Start: 06-01-2025 DIABETES SCREEN [facility] Start: 05-11-2025 DIABETES SCREEN [facility] Start: 04-26-2025 DIABETES SCREEN DIABETES SCREEN [facility] Start: 04-20-2025 DIABETES SCREEN DIABETES SCREEN [facility] Start: 04-06-2025 DIABETES SCREEN [facility]ET[facility]CREEN [facility] Start: 03-30-2025 DIABETES SCREEN DIABETES SCREEN [facility] Start: 03-16-2025 DIABETES SCREEN DIABETES SCREEN [facility] Start: 03-07-2025 DIABETES SCREEN DIABETES SCREEN [facility] Start: 12-21-2024 Urine screening for protein Diabetes: Urine Protein Screening [facility] Start: 11-23-2024 Lipid 1996 panel - S dusty or Plasma Lipid Screening [facility] Start: 11-23-2024 Lipid panel Lipid Screening [facility] Start: 11-23-2024 LIPID SCREEN LIPID SCREEN [facility] Start: 11-16-2024 Screening for malign ant neoplasm of lung Lung Cancer Screening [facility] Start: 08-17-2024 Screening for malign ant neoplasm of lung Lung Cancer Screening [facility] Start: 05-28-2024 End: 05-28-2024 Patient encounter procedure 05/28/2024 11:20 AM EST Office Visit [facility] [address] [place] [address] César Leiva MD [address] [place] [address] [facility] Start: 05-18-2024 Screening for malign ant neoplasm of lung Lung Cancer Screening [facility] Start: 04-27-2024 Hemoglobin A1c measurement HbA1C [facility] Start: 04-27-2024 Pneumococcal Vaccine : 65+ Years (1 - PCV) Pneumococcal Vaccine: 65+ Years (1 - PCV) [facility] Comment on above: Postponed from 04/21 (Patient Refused) Start: 04-27-2024 Pneumococcal Vaccine : 65+ Years (1 of 2 - PCV) Pneumococcal Vaccine: 65+ Years (1 of 2 - PCV) [facility] Comment on above: Postponed from 04/21 (Patient Refused) Start: 04-26-2024 End: 04-26-2024 ambulatory 04/26/2024 11:00 AM [facility] Hematology/Oncology [address] [place] [address] [place] [address] pump disconnect Hematology/Oncology Comment on above: pump disconnect Start: 04-24-2024 End: 07-24-2024 Cancer Ag 19-9 [Units/volume] in Serum or Plasma CA 19-9 Lab Routine Malignant neoplasm of head of pancreas (HCC) Central line complication, initial encounter Neuropathy Type 2 diabetes mellitus without complication, with long-term current use of insulin (HCC) Expected: 04/24/2024, Expires: 07/24/2024 [facility] Comment on above: Expected: 04/24/2024 , Expires: 07/24/2024 Start: 04-24-2024 End: 07-24-2024 CBC W Auto Differential panel - Blood COMPLETE BLOOD COUNT AND DIFFERENTIAL Lab Routine Malignant neoplasm of head of pancreas (HCC) Central line complication, initial encounter Neuropathy Type 2 diabetes mellitus without complication, with long-term current use of insulin (HCC) Expected: 04/24/2024, Expires: 07/24/2024 [facility] Work Phone: Comment on above: Expected: 04/24/2024 , Expires: 07/24/2024 Start: 04-24-2024 End: 07-24-2024 Comprehensive metabolic 2000 panel - Serum or Plasma COMPREHENSIVE METABOLIC PANEL Lab Routine Malignant neoplasm of head of pancreas (HCC) Central line complication, initial encounter Neuropathy Type 2 diabetes mellitus without complication, with long-term current use of insulin (HCC) Expected: 04/24/2024, Expires: 07/24/2024 [facility] Comment on above: Expected: 04/24/2024 , [...] Appointment Radiology [address] CT [address] [place] [address] CT CAP with IVC Radiology Pet CT Comment on above: CT CAP with IVC Start: 04-04-2024 End: 04-04-2024 ambulatory 04/04/2024 10:30 AM EST Infusion Center Hematology/Oncology [address] [place] [address] pump disconnect Hematology/Oncology Comment on above: pump disconnect Start: 04-01-2024 End: 04-01-2024 Patient encounter procedure 04/01/2024 2:30 PM EST Office Visit [facility] [address] [facility] [address] [place] [id number] Giovanni Salinas MD [address] [place] [facility] [address] [place] [address] [facility] Start: 03-29-2024 End: 03-29-2024 Follow-up encounter 03/29/2024 11:00 AM EST Infusion Center Hematology/Oncology [address] [place] [address] [place] [address] 3 week follow up and chemotx Julia // pump connect Hematology/Oncology Comment on above: 3 week follow up and chemotx Julia // pump connect Start: 03-27-2024 End: 06-26-2024 Cancer Ag 19-9 [Units/volume] in Serum or Plasma CA 19-9 Lab Routine Malignant neoplasm of head of pancreas (HCC) Expected: 03/27/2024, Expires: 06/26/2024 [facility] Comment on above: Expected: 03/27/2024 , Expires: 06/26/2024 Start: 03-27-2024 End: 06-26-2024 CBC W Auto Differential panel - Blood COMPLETE BLOOD COUNT AND DIFFERENTIAL Lab Routine Malignant neoplasm of head of pancreas (HCC) Expected: 03/27/2024, Expires: 06/26/2024 [facility] Work Phone: Comment on above: Expected: 03/27/2024 , Expires: 06/26/2024 Start: 03-27-2024 End: 06-26-2024 Comprehensive metabolic 2000 panel - Serum or Plasma COMPREHENSIVE METABOLIC PANEL Lab Routine Malignant neoplasm of head of pancreas (HCC) Expected: 03/27/2024, Expires: 06/26/2024 [facility] Comment on above: Expected: 03/27/2024 , Expires: 06/26/2024 Start: 03-27-2024 End: 03-27-2024 Follow-up encounter Hematology/Oncology Comment on above: 3 week follow up and chemotx Julia // pump connect 3 week follow up and chemotx Julia-PORT // pump connect Start: 03-07-2024 End: 03-07-2024 Follow-up encounter 03/07/2024 11:00 AM [facility] Infusion Center Hematology/Oncology [address] [place] [address] [place] [address] 3 week follow up and chemotx Julia // pump connect Hematology/Oncology Comment on above: 3 week follow up and chemotx Julia // pump connect Start: 03-05-2024 End: 06-04-2024 Cancer Ag 19-9 [Units/volume] in Serum or Plasma [facility] [employer] Work Phone: Comment on above: Expected: 03/05/2024 , Expires: 06/04/2024 Start: 03-05-2024 End: 03-05-2024 Follow-up encounter Hematology/Oncology Comment on above: 3 week follow up and chemotx Julia // pump connect Start: 02-14-2024 End: 02-14-2024 Follow-up encounter 02/14/2024 10:30 AM [facility] Infusion Center Hematology/Oncology [address] [place] [address] [place] [address] 3 week follow up and chemotx Julia // pump connect Hematology/Oncology Comment on above: 3 week follow up and chemotx Julia // pump connect Start: 02-12-2024 DIABETES SCREEN DIABETES SCREEN [facility] Start: 02-12-2024 End: 02-12-2024 Follow-up encounter Hematology/Oncology Comment on above: 3 week follow up and chemotx Julia // pump connect Start: 01-27-2024 Hemoglobin A1c measurement Diabetes: Hemoglobin A1C [facility] Start: 01-25-2024 End: 01-25-2024 Follow-up encounter 01/25/2024 10:30 AM [facility] Infusion Center Hematology/Oncology [address] [place] [address] [place] [address] 3 week follow up and chemotx Jluia // pump connect Hematology/Oncology Comment on above: 3 week follow up and chemotx Julia // pump connect Start: 01-23-2024 End: 04-23-2024 Cancer Ag 19-9 [Units/volume] in Serum or Plasma [facility] Comment on above: Expected: 01/23/2024 , Expires: 04/23/2024 Start: 01-23-2024 End: 04-23-2024 CBC W Auto Differential panel - Blood COMPLETE BLOOD COUNT AND DIFFERENTIAL Lab Routine Malignant neoplasm of head of pancreas (HCC) Expected: 01/23/2024, Expires: 04/23/2024 [facility] Comment on above: Expected: 01/23/2024 , Expires: 04/23/2024 Start: 01-23-2024 End: 04-23-2024 Comprehensive metabolic 2000 panel - Serum or Plasma [facility] Work Phone: Comment on above: Expected: 01/23/2024 , Expires: 04/23/2024 Start: 01-23-2024 End: 01-23-2024 Follow-up encounter Hematology/Oncology Comment on above: 3 week follow up and chemotx Julia // pump connect Start: 01-21-2024 Influenza vaccination [facility] Start: 01-05-2024 End: 01-05-2024 ambulatory Hematology/Oncology Comment on above: pump disconnect pump dc Start: 01-03-2024 End: 04-03-2024 Cancer Ag 19-9 [Units/volume] in Serum or Plasma [facility] Work Phone: Comment on above: Expected: 01/03/2024 , Expires: 04/03/2024 Start: 01-03-2024 End: 04-03-2024 CBC W Auto Differential panel - Blood COMPLETE BLOOD COUNT AND DIFFERENTIAL Lab Routine Malignant neoplasm of head of pancreas (HCC) Expected: 01/03/2024, Expires: 04/03/2024 [facility] Comment on above: Expected: 01/03/2024 , Expires: 04/03/2024 Start: 01-03-2024 End: 04-03-2024 Comprehensive metabolic 2000 panel - Serum or Plasma COMPREHENSIVE METABOLIC PANEL Lab Routine Malignant neoplasm of head of pancreas (HCC) Expected: 01/03/2024, Expires: 04/03/2024 [facility] Work Phone: Comment on above: Expected: 01/03/2024 , Expires: 04/03/2024 Start: 01-03-2024 End: 01-03-2024 ambulatory 01/03/2024 9:45 AM EDT Infusion Center Hematology/Oncology [address] [place] [address] Julia Hematology/Oncology Comment on above: Julia Start: 01-03-2024 End: 01-03-2024 Follow-up encounter Hematology/Oncology Comment on above: 3 week follow up and chemotx Julia // pump connect Start: 12-29-2023 End: 12-29-2023 Admission to same day surgery center 12/29/2023 10:00 AM EDT - 12/29/2023 11:30 AM EDT Surgery [facility] Radiology Procedure [address] [place] [address] Jhonny Morgan MD [address] [place] [address] REMOVAL CATHETER PORT-A-CATH [facility] Radiology Procedure Comment on above: REMOVAL CATHETER POR T-A-CATH Start: 12-29-2023 End: 12-29-2023 Insj tunneled ctr vad w/subq port age 6 yr/> INSERTION PORT VENOUS ACCESS ADULT Central line complication, initial encounter 12/29/2023 10:00 AM EDT AV IR Start: 12-29-2023 End: 12-29-2023 Rmvl [place] cvc w/o subq port/sawsmith REMOVAL CATHETER PORT-A-CATH Central line complication, initial encounter 12/29/2023 10:00 AM EDT AV IR Start: 12-29-2023 Subsequent hospital visit by physician 12/29/2023 10:00 AM EDT Hospital Encounter [facility] Radiology Procedure [address] [place] [address] Jhonny Morgan MD [address] [place] [address] Central line complication, initial encounter [T82.9XXA] [facility] Radiology Procedure Comment on above: Central line complic ation, initial encounter [T82.9XXA] Start: 12-13-2023 End: 12-13-2023 ambulatory 12/13/2023 11:00 AM EDT Infusion Center Hematology/Oncology [address] [address] pump disconnect Hematology/Oncology Comment on above: pump [...] pancreas (HCC) Expected: 11/21/2023 (Approximate), Expires: 02/20/2024 [facility] Comment on above: Expected: 11/21/2023 (Approximate), Expires: 02/20/2024 Start: 11-21-2023 End: 02-20-2024 CBC W Auto Differential panel - Blood COMPLETE BLOOD COUNT AND DIFFERENTIAL Lab Routine Malignant neoplasm of head of pancreas (HCC) Expected: 11/21/2023 (Approximate), Expires: 02/20/2024 [facility] Comment on above: Expected: 11/21/2023 (Approximate), Expires: 02/20/2024 Start: 11-21-2023 End: 02-20-2024 Comprehensive metabolic 2000 panel - Serum or Plasma COMPREHENSIVE METABOLIC PANEL Lab Routine Malignant neoplasm of head of pancreas (HCC) Expected: 11/21/2023 (Approximate), Expires: 02/20/2024 [facility] Comment on above: Expected: 11/21/2023 (Approximate), Expires: 02/20/2024 Start: 11-21-2023 End: 11-29-2024 CT Abdomen and Pelvis W contrast IV CT ABD/PEL W IVCON Radiology Routine Malignant neoplasm of head of pancreas (HCC) Expected: 11/21/2023 (Approximate), Expires: 11/29/2024 [facility] Comment on above: Expected: 11/21/2023 (Approximate), Expires: 11/29/2024 Start: 11-21-2023 End: 11-29-2024 CT Chest W contrast IV CT CHEST W IVCON Radiology Routine Malignant neoplasm of head of pancreas (HCC) Expected: 11/21/2023 (Approximate), Expires: 11/29/2024 [facility] Work Phone: Comment on above: Expected: 11/21/2023 (Approximate), Expires: 11/29/2024 Start: 11-20-2023 End: 11-20-2023 Follow-up encounter Hematology/Oncology Comment on above: 3 week follow up and chemotx Julia // pump connect Start: 11-19-2023 Influenza vaccination Influenza Vacc ine (#1) [facility] Comment on above: Postponed from 01/20 (Patient Refused) Start: 11-17-2023 End: 11-17-2023 Patient encounter procedure 11/17/2023 10:15 AM EDT Appointment Radiology Pet CT [address] [place] [address] CT CAP with contrast Radiology Pet [...] vaccination LUNG CANCER SC REENING [facility] Start: 11-04-2023 Screening for malign ant neoplasm of lung Lung Cancer Screening [facility] Start: 11-03-2023 End: 11-03-2023 ambulatory 11/03/2023 11:00 AM EDT Infusion Center Hematology/Oncology [address] [place] [address] pump disconnect Hematology/Oncology Comment on above: pump disconnect Start: 11-02-2023 End: 11-02-2023 ambulatory 11/02/2023 12:30 PM EDT Infusion Center Hematology/Oncology [address] [place], [place] [address] [phone] 12:30pm pump disconnect Hematology/Oncology Comment on above: 12:30pm pump disconn ect Start: 11-01-2023 End: 11-01-2023 Follow-up encounter Hematology/Oncology Comment on above: 3 week follow up and chemotx Julia // pump connecct Start: 10-27-2023 Hemoglobin A1c measurement HbA1C [facility] Start: 10-27-2023 Medicare Annual Well ness (AWV) Medicare Annual Wellness (AWV) [facility] Start: 10-27-2023 End: 10-27-2023 ambulatory 10/27/2023 10:30 AM [facility] Infusion Center Hematology/Oncology [address] [place] [address] pump disconnect Hematology/Oncology Comment on above: pump disconnect Start: 10-25-2023 End: 10-25-2023 Follow-up encounter Hematology/Oncology Comment on above: 3 week follow up and chemotx Julia // pump connecct Start: 10-13-2023 End: 10-13-2023 ambulatory 10/13/2023 11:30 AM T Infusion Center Hematology/Oncology [facility] [place] [address] pump disconnect Hematology/Oncology Comment on above: pump disconnect Start: 10-12-2023 End: 10-12-2023 ambulatory 10/12/2023 11:30 AM [facility] Infusion Center Hematology/Oncology [address] [place], [place] [address] [address] pump disconnect Hematology/Oncology Comment on above: pump disconnect Start: 10-11-2023 End: 01-10-2024 Cancer Ag 19-9 [Units/volume] in Serum or Plasma CA 19-9 Lab Routine Malignant neoplasm of head of pancreas (HCC) Expected: 10/11/2023, Expires: 01/10/2024 [facility] Comment on above: Expected: 10/11/2023 , Expires: 01/10/2024 Start: 10-11-2023 End: 01-10-2024 CBC W Auto Differential panel - Blood COMPLETE BLOOD COUNT AND DIFFERENTIAL Lab Routine Malignant neoplasm of head of pancreas (HCC) Expected: 10/11/2023, Expires: 01/10/2024 [facility] Comment on above: Expected: 10/11/2023 , Expires: 01/10/2024 Start: 10-11-2023 End: 01-10-2024 Comprehensive metabolic 2000 panel - Serum or Plasma COMPREHENSIVE METABOLIC PANEL Lab Routine Malignant neoplasm of head of pancreas (HCC) Expected: 10/11/2023, Expires: 01/10/2024 [facility] Work Phone: Comment on above: Expected: 10/11/2023 , Expires: 01/10/2024 Start: 10-11-2023 End: 10-11-2023 Follow-up encounter Hematology/Oncology Comment on above: 3 week follow up and chemotx Julia // pump connecct Start: 10-11-2023 End: 10-11-2023 ambulatory 10/11/2023 9:00 AM [facility] Infusion Center Hematology/Oncology [address] [place] [address] [place] [address] 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 Hematology/Oncology Comment on above: 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 Start: 10-10-2023 End: 10-10-2023 Follow-up encounter Hematology/Oncology Comment on above: 3 week follow up and chemotx Julia // pump connecct Start: 10-05-2023 End: 10-05-2023 ambulatory 10/05/2023 10:30 AM [facility] Infusion Center Hematology/Oncology [address] [place] [address] [place] [address] pump disconnect Hematology/Oncology Comment on above: pump disconnect Start: 10-03-2023 End: 01-02-2024 CBC W Auto Differential panel - Blood COMPLETE BLOOD COUNT AND DIFFERENTIAL Lab Routine Leg swelling Malignant neoplasm of head of pancreas (HCC) Neuropathy Acute cough Expected: 10/03/2023, Expires: 01/02/2024 [facility] Comment on above: Expected: 10/03/2023 , Expires: 01/02/2024 Start: 10-03-2023 End: 01-02-2024 Comprehensive metabolic 2000 panel - Serum or Plasma COMPREHENSIVE METABOLIC PANEL Lab Routine Leg swelling Malignant neoplasm of head of pancreas (HCC) Neuropathy Acute cough Expected: 10/03/2023, Expires: 01/02/2024 [facility] Work Phone: Comment on above: Expected: 10/03/2023 , Expires: 01/02/2024 Start: 10-03-2023 End: 10-03-2023 Follow-up encounter Hematology/Oncology Comment on above: 3 week follow up and chemotx Julia // pump connecct Start: 09-25-2023 End: 12-25-2023 Cancer Ag 19-9 [Units/volume] in Serum or Plasma CA 19-9 Lab Routine Malignant neoplasm of head of pancreas (HCC) Neuropathy Expected: 09/25/2023, Expires: 12/25/2023 [facility] Comment on above: Expected: 09/25/2023 , Expires: 12/25/2023 Start: 09-25-2023 End: 12-25-2023 CBC W Auto Differential panel - Blood COMPLETE BLOOD COUNT AND DIFFERENTIAL Lab Routine Malignant neoplasm of head of pancreas (HCC) Neuropathy Expected: 09/25/2023, Expires: 12/25/2023 [facility] Comment on above: Expected: 09/25/2023 , Expires: 12/25/2023 Start: 09-25-2023 End: 12-25-2023 Comprehensive metabolic 2000 panel - Serum or Plasma COMPREHENSIVE METABOLIC PANEL Lab Routine Malignant neoplasm of head of pancreas (HCC) Neuropathy Expected: 09/25/2023, Expires: 12/25/2023 [facility] Work Phone: Comment on above: Expected: 09/25/2023 , Expires: 12/25/2023 Start: 09-15-2023 End: 09-15-2023 ambulatory 09/15/2023 11:00 AM [facility] Hematology/Oncology [address] [place] [address] [place] [address] pump disconnect Hematology/Oncology Comment on above: pump disconnect Start: 09-13-2023 End: 12-13-2023 Cancer Ag 19-9 [Units/volume] in Serum or Plasma [facility] Work Phone: Comment on above: Expected: 09/13/2023 (Approximate), Expires: 12/13/2023 Start: 09-13-2023 End: 12-13-2023 CBC W Auto Differential panel - Blood CBC + DIFF Lab Routine Malignant neoplasm of head of pancreas (HCC) Expected: 09/13/2023 (Approximate), Expires: 12/13/2023 [facility] Work Phone: Comment on above: Expected: 09/13/2023 (Approximate), Expires: 12/13/2023 Start: 09-13-2023 End: 12-13-2023 Cobalamin (Vitamin B12) [Mass/volume] in Serum or Plasma VITAMIN B12 BLOOD Lab Routine Malignant neoplasm of head of pancreas (HCC) Expected: 09/13/2023 (Approximate), Expires: 12/13/2023 [facility] Work Phone: Comment on above: Expected: 09/13/2023 (Approximate), Expires: 12/13/2023 Start: 09-13-2023 End: 12-13-2023 Comprehensive metabolic 2000 panel - Serum or Plasma COMP METABOLIC PANEL Lab Routine Malignant neoplasm of head of pancreas (HCC) Expected: 09/13/2023 (Approximate), Expires: 12/13/2023 [facility] Work Phone: Comment on above: Expected: 09/13/2023 (Approximate), Expires: 12/13/2023 Start: 09-13-2023 End: 08-22-2024 Ferritin [Mass/volume] in Serum or Plasma FERRITIN BLD Lab Routine Malignant neoplasm of head of pancreas (HCC) Expected: 09/13/2023 (Approximate), Expires: 08/22/2024 [facility] Work Phone: Comment on above: Expected: 09/13/2023 (Approximate), Expires: 08/22/2024 Start: 09-13-2023 End: 08-22-2024 Iron and Iron binding capacity panel - Serum or Plasma IRON + TIBC Lab Routine Malignant neoplasm of head of pancreas (HCC) Expected: 09/13/2023 (Approximate), Expires: 08/22/2024 [facility] Work Phone: Comment on above: Expected: 09/13/2023 (Approximate), Expires: 08/22/2024 Start: 08-16-2023 End: 11-15-2023 Cancer Ag 19-9 [Units/volume] in Serum or Plasma CA 19-9 BLD Lab Routine Malignant neoplasm of head of pancreas (HCC) Expected: 08/16/2023 (Approximate), Expires: 11/15/2023 [facility] Work Phone: Comment on above: Expected: 08/16/2023 (Approximate), Expires: 11/15/2023 Start: 08-16-2023 End: 11-15-2023 CBC W Auto Differential panel - Blood CBC + DIFF Lab Routine Malignant neoplasm of head of pancreas (HCC) Expected: 08/16/2023 (Approximate), Expires: 11/15/2023 [facility] Work Phone: Comment on above: Expected: 08/16/2023 (Approximate), Expires: 11/15/2023 Start: 08-16-2023 End: 11-15-2023 Comprehensive metabolic 2000 panel - Serum or Plasma COMP METABOLIC PANEL Lab Routine Malignant neoplasm of head of pancreas (HCC) Expected: 08/16/2023 (Approximate), Expires: 11/15/2023 [facility] Work Phone: Comment on above: Expected: 08/16/2023 (Approximate), Expires: 11/15/2023 Start: 08-16-2023 End: 08-31-2024 CT Abdomen and Pelvis W contrast IV CT ABD/PEL W IVCON Radiology Routine Malignant neoplasm of head of pancreas (HCC) Expected: 08/16/2023 (Approximate), Expires: 08/31/2024 [facility] Work Phone: Comment on above: Expected: 08/16/2023 (Approximate), Expires: 08/31/2024 Start: 08-16-2023 End: 08-31-2024 CT Chest W contrast IV CT CHEST W IVCON Radiology Routine Malignant neoplasm of head of pancreas (HCC) Expected: 08/16/2023 (Approximate), Expires: 08/31/2024 [facility] Work Phone: Comment on above: Expected: 08/16/2023 (Approximate), Expires: 08/31/2024 Start: 07-28-2023 Influenza vaccination LUNG CANCER [facility] Start: 07-27-2023 Hemoglobin A1c measurement Diabetes: Hemoglobin A1C [facility] Start: 07-26-2023 End: 10-25-2023 Cancer Ag 19-9 [Units/volume] in Serum or Plasma CA 19-9 BLD Lab Routine Malignant neoplasm of head of pancreas (HCC) Type 2 diabetes mellitus without complication, with long-term current use of insulin (HCC) Neuropathy Severe protein-calorie malnutrition (HCC) Expected: 07/26/2023, Expires: 10/25/2023 [facility] Work Phone: Comment on above: Expected: 07/26/2023 , Expires: 10/25/2023 Start: 07-26-2023 End: 10-25-2023 CBC W Auto Differential panel - Blood CBC + DIFF Lab Routine Malignant neoplasm of head of pancreas (HCC) Type 2 diabetes mellitus without complication, with long-term current use of insulin (HCC) Neuropathy Severe protein-calorie malnutrition (HCC) Expected: 07/26/2023, Expires: 10/25/2023 [facility] Work Phone: Comment on above: Expected: 07/26/2023 , Expires: 10/25/2023 Start: 07-26-2023 End: 10-25-2023 Comprehensive metabolic 2000 panel - Serum or Plasma COMP METABOLIC PANEL Lab Routine Malignant neoplasm of head of pancreas (HCC) Type 2 diabetes mellitus without complication, with long-term current use of insulin (HCC) Neuropathy Severe protein-calorie malnutrition (HCC) Expected: 07/26/2023, Expires: 10/25/2023 [facility] Work Phone: Comment on above: Expected: 07/26/2023 , Expires: 10/25/2023 Start: 07-13-2023 End: 10-12-2023 CBC W Auto Differential panel - Blood CBC + DIFF Lab Routine Malignant neoplasm of head of pancreas (HCC) Expected: 07/13/2023, Expires: 10/12/2023 [facility] Work Phone: Comment on above: Expected: 07/13/2023 , Expires: 10/12/2023 Start: 07-13-2023 End: 10-12-2023 Comprehensive metabolic 2000 panel - Serum or Plasma COMP METABOLIC PANEL Lab Routine Malignant neoplasm of head of pancreas (HCC) Expected: 07/13/2023, Expires: 10/12/2023 [facility] Work Phone: Comment on above: Expected: 07/13/2023 , Expires: 10/12/2023 Start: 05-26-2023 End: 08-25-2023 Cancer Ag 19-9 [Units/volume] in Serum or Plasma CA 19-9 BLD Lab Routine Malignant neoplasm of head of pancreas (HCC) Expected: 05/26/2023 (Approximate), Expires: 08/25/2023 [facility] Work Phone: Comment on above: Expected: 05/26/2023 (Approximate), Expires: 08/25/2023 Start: 05-26-2023 End: 08-25-2023 CBC W Auto Differential panel - Blood CBC + DIFF Lab Routine Malignant neoplasm of head of pancreas (HCC) Expected: 05/26/2023 (Approximate), Expires: 08/25/2023 [facility] Work Phone: Comment on above: Expected: 05/26/2023 (Approximate), Expires: 08/25/2023 Start: 05-26-2023 End: 08-25-2023 Comprehensive metabolic 2000 panel - Serum or Plasma COMP METABOLIC PANEL Lab Routine Malignant neoplasm of head of pancreas (HCC) Expected: 05/26/2023 (Approximate), Expires: 08/25/2023 [facility] Work Phone: Comment on above: Expected: 05/26/2023 (Approximate), Expires: 08/25/2023 Start: 05-26-2023 End: 06-03-2024 Ct abdomen & pelvis w/contrast material CT ABD/PEL W IVCON Radiology Routine Malignant neoplasm of head of pancreas (HCC) Expected: 05/26/2023 (Approximate), Expires: 06/03/2024 [facility] Work Phone: Comment on above: Expected: 05/26/2023 (Approximate), Expires: 06/03/2024 Start: 05-26-2023 End: 06-03-2024 CT CHEST W IVCON CT CHEST W IVCON Radiology Routine Malignant neoplasm of head of pancreas (HCC) Expected: 05/26/2023 (Approximate), Expires: 06/03/2024 [facility] Work Phone: Comment on above: Expected: 05/26/2023 (Approximate), Expires: 06/03/2024 Start: 05-25-2023 Influenza vaccination LUNG CANCER [facility] Start: 05-22-2023 Advance Directive Discussion Advance Directive Discussion [facility] Start: 05-22-2023 Behavioral Health Screening Behavioral Health Screening [facility] Start: 05-22-2023 Depression Assessment Depression Ass essment [facility] Start: 05-12-2023 End: 08-11-2023 CBC W Auto Differential panel - Blood CBC + DIFF Lab Routine Malignant neoplasm of head of pancreas (HCC) Expected: 05/12/2023, Expires: 08/11/2023 [facility] Work Phone: Comment on above: Expected: 05/12/2023 , Expires: 08/11/2023 Start: 04-26-2023 End: 07-26-2023 Cancer Ag 19-9 [Units/volume] in Serum or Plasma CA 19-9 BLD Lab Routine Type 2 diabetes mellitus without complication, with long-term current use of insulin (HCC) Severe protein-calorie malnutrition (HCC) Malignant neoplasm of head of pancreas (HCC) Anemia, unspecified type Expected: 04/26/2023 (Approximate), Expires: 07/26/2023 [facility] Work Phone: Comment on above: Expected: 04/26/2023 (Approximate), Expires: 07/26/2023 Start: 04-26-2023 End: 07-26-2023 CBC W Auto Differential panel - Blood CBC + DIFF Lab Routine Type 2 diabetes mellitus without complication, with long-term current use of insulin (HCC) Severe protein-calorie malnutrition (HCC) Malignant neoplasm of head of pancreas (HCC) Anemia, unspecified type Expected: 04/26/2023 (Approximate), Expires: 07/26/2023 [facility] Work Phone: Comment on above: Expected: 04/26/2023 (Approximate), Expires: 07/26/2023 Start: 04-26-2023 End: 07-26-2023 Comprehensive metabolic 2000 panel - Serum or Plasma COMP METABOLIC PANEL Lab Routine Type 2 diabetes mellitus without complication, with long-term current use of insulin (HCC) Severe protein-calorie malnutrition (HCC) Malignant neoplasm of head of pancreas (HCC) Anemia, unspecified type Expected: 04/26/2023 (Approximate), Expires: 07/26/2023 [facility] Work Phone: Comment on above: Expected: 04/26/2023 (Approximate), Expires: 07/26/2023 Start: 03-30-2023 End: 06-29-2023 Cancer Ag 19-9 [Units/volume] in Serum or Plasma CA 19-9 BLD Lab Routine 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) Expected: 03/30/2023 (Approximate), Expires: 06/29/2023 [facility] Work Phone: Comment on above: Expected: 03/30/2023 (Approximate), Expires: 06/29/2023 Start: 03-30-2023 End: 06-29-2023 CBC W Auto Differential panel - Blood [facility] Work Phone: Comment on above: Expected: 03/30/2023 (Approximate), Expires: 06/29/2023 Expected: 03/30/2023 , Expires: 06/29/2023 Start: 03-30-2023 End: 06-29-2023 Comprehensive metabolic 2000 panel - Serum or Plasma [facility] Work Phone: Comment on above: Expected: 03/30/2023 (Approximate), Expires: 06/29/2023 Expected: 03/30/2023 , Expires: 06/29/2023 Start: 03-07-2023 Influenza vaccination LUNG CANCER [facility] Start: 03-02-2023 End: 05-02-2023 Cancer Ag 19-9 [Units/volume] in Serum or Plasma CA 19-9 BLD Lab Routine 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) Type 2 diabetes mellitus without complication, with long-term current use of insulin (HCC) LINDSEY (dyspnea on exertion) Expected: 03/02/2023, Expires: 05/02/2023 [facility] Work Phone: Comment on above: Expected: 03/02/2023 , Expires: 05/02/2023 Start: 03-02-2023 End: 05-02-2023 CBC W Auto Differential panel - Blood CBC + DIFF Lab Routine 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) Type 2 diabetes mellitus without complication, with long-term current use of insulin (HCC) LINDSEY (dyspnea on exertion) Expected: 03/02/2023, Expires: 05/02/2023 [facility] Work Phone: Comment on above: Expected: 03/02/2023 , Expires: 05/02/2023 Start: 03-02-2023 End: 05-02-2023 Comprehensive metabolic 2000 panel - Serum or Plasma COMP METABOLIC PANEL Lab Routine 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) Type 2 diabetes mellitus without complication, with long-term current use of insulin (HCC) LINDSEY (dyspnea on exertion) Expected: 03/02/2023, Expires: 05/02/2023 [facility] Work Phone: Comment on above: Expected: 03/02/2023 , Expires: 05/02/2023 Start: 03-01-2023 End: 05-01-2023 Cancer Ag 19-9 [Units/volume] in Serum or Plasma [facility] Work Phone: Comment on above: Expected: 03/01/2023 (Approximate), Expires: 05/01/2023 Start: 03-01-2023 End: 05-01-2023 CBC W Auto Differential panel - Blood CBC + DIFF Lab Routine 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) Expected: 03/01/2023 (Approximate), Expires: 05/01/2023 [facility] Work Phone: Comment on above: Expected: 03/01/2023 (Approximate), Expires: 05/01/2023 Start: 03-01-2023 End: 05-01-2023 Comprehensive metabolic 2000 panel - Serum or Plasma [facility] Work Phone: Comment on above: Expected: 03/01/2023 (Approximate), Expires: 05/01/2023 Start: 02-08-2023 End: 04-10-2023 CBC W Auto Differential panel - Blood CBC + DIFF Lab Routine 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) Expected: 02/08/2023 (Approximate), Expires: 04/10/2023 [facility] Work Phone: Comment on above: Expected: 02/08/2023 (Approximate), Expires: 04/10/2023 Start: 02-08-2023 End: 04-10-2023 Comprehensive metabolic 2000 panel - Serum or Plasma COMP METABOLIC PANEL Lab Routine 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) Expected: 02/08/2023 (Approximate), Expires: 04/10/2023 [facility] Work Phone: Comment on above: Expected: 02/08/2023 (Approximate), Expires: 04/10/2023 Start: 02-04-2023 End: 04-06-2023 Cancer Ag 19-9 [Units/volume] in Serum or Plasma CA 19-9 BLD Lab Routine 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) Expected: 02/04/2023 (Approximate), Expires: 04/06/2023 [facility] Work Phone: Comment on above: Expected: 02/04/2023 (Approximate), Expires: 04/06/2023 Start: 02-04-2023 End: 04-06-2023 CBC W Auto Differential panel - Blood CBC + DIFF Lab Routine 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) Expected: 02/04/2023 (Approximate), Expires: 04/06/2023 [facility] Work Phone: Comment on above: Expected: 02/04/2023 (Approximate), Expires: 04/06/2023 Start: 02-04-2023 End: 04-06-2023 Comprehensive metabolic 2000 panel - Serum or Plasma COMP METABOLIC PANEL Lab Routine 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) Expected: 02/04/2023 (Approximate), Expires: 04/06/2023 [facility] Work Phone: Comment on above: Expected: 02/04/2023 (Approximate), Expires: 04/06/2023 Start: 01-20-2023 Influenza vaccination [facility] Start: 12-14-2022 End: 02-13-2023 Cancer Ag 19-9 [Units/volume] in Serum or Plasma [facility] Work Phone: Comment on above: Expected: 12/14/2022 (Approximate), Expires: 02/13/2023 Start: 12-14-2022 End: 02-13-2023 CBC W Auto Differential panel - Blood CBC + DIFF Lab Routine Malignant neoplasm of head of pancreas (HCC) Expected: 12/14/2022 (Approximate), Expires: 02/13/2023 [facility] Work Phone: Comment on above: Expected: 12/14/2022 (Approximate), Expires: 02/13/2023 Start: 12-14-2022 End: 02-13-2023 Comprehensive metabolic 2000 panel - Serum or Plasma COMP METABOLIC PANEL Lab Routine Malignant neoplasm of head of pancreas (HCC) Expected: 12/14/2022 (Approximate), Expires: 02/13/2023 [facility] Work Phone: Comment on above: Expected: 12/14/2022 (Approximate), Expires: 02/13/2023 Start: 12-07-2022 End: 02-06-2023 CBC W Auto Differential panel - Blood CBC + DIFF Lab Routine Malignant neoplasm of head of pancreas (HCC) Expected: 12/07/2022, Expires: 02/06/2023 [facility] Work Phone: Comment on above: Expected: 12/07/2022 , Expires: 02/06/2023 Start: 12-05-2022 End: 02-04-2023 Cancer Ag 19-9 [Units/volume] in Serum or Plasma CA 19-9 BLD Lab Routine Malignant neoplasm of head of pancreas (HCC) Anemia, unspecified type Type 2 diabetes mellitus without complication, with long-term current use of insulin (HCC) Expected: 12/05/2022, Expires: 02/04/2023 [facility] Work Phone: Comment on above: Expected: 12/05/2022 , Expires: 02/04/2023 Start: 12-05-2022 End: 02-04-2023 CBC W Auto Differential panel - Blood [facility] Work Phone: Comment on above: Expected: 12/05/2022 , Expires: 02/04/2023 Start: 12-05-2022 End: 02-04-2023 Comprehensive metabolic 2000 panel - Serum or Plasma COMP METABOLIC PANEL Lab Routine Malignant neoplasm of head of pancreas (HCC) Anemia, unspecified type Type 2 diabetes mellitus without complication, with long-term current use of insulin (HCC) Expected: 12/05/2022, Expires: 02/04/2023 [facility] Work Phone: Comment on above: Expected: 12/05/2022 , Expires: 02/04/2023 Start: 11-23-2022 End: 01-23-2023 CBC W Auto Differential panel - Blood CBC + DIFF Lab Routine Malignant neoplasm of head of pancreas (HCC) Expected: 11/23/2022, Expires: 01/23/2023 [facility] Work Phone: Comment on above: Expected: 11/23/2022 , Expires: 01/23/2023 Start: 11-23-2022 End: 01-23-2023 Comprehensive metabolic 2000 panel - Serum or Plasma COMP METABOLIC PANEL Lab Routine Malignant neoplasm of head of pancreas (HCC) Expected: 11/23/2022, Expires: 01/23/2023 [facility] Work Phone: Comment on above: Expected: 11/23/2022 , Expires: 01/23/2023 Start: 11-10-2022 End: 01-10-2023 Cancer Ag 19-9 [Units/volume] in Serum or Plasma [facility] Work Phone: Comment on above: Expected: 11/10/2022 (Approximate), Expires: 01/10/2023 Start: 11-10-2022 End: 01-10-2023 CBC W Auto Differential panel - Blood CBC + DIFF Lab Routine Malignant neoplasm of head of pancreas (HCC) Expected: 11/10/2022 (Approximate), Expires: 01/10/2023 [facility] Work Phone: Comment on above: Expected: 11/10/2022 (Approximate), Expires: 01/10/2023 Start: 11-10-2022 End: 01-10-2023 Comprehensive metabolic 2000 panel - Serum or Plasma COMP METABOLIC PANEL Lab Routine Malignant neoplasm of head of pancreas (HCC) Expected: 11/10/2022 (Approximate), Expires: 01/10/2023 [facility] Work Phone: Comment on above: Expected: 11/10/2022 (Approximate), Expires: 01/10/2023 Start: 11-10-2022 End: 10-29-2023 Ct abdomen & pelvis w/contrast material CT ABD/PEL W IVCON Radiology Routine Malignant neoplasm of head of pancreas (HCC) Expected: 11/10/2022 (Approximate), Expires: 10/29/2023 [facility] Work Phone: Comment on above: Expected: 11/10/2022 (Approximate), Expires: 10/29/2023 Start: 11-10-2022 End: 10-29-2023 CT CHEST W IVCON CT CHEST W IVCON Radiology Routine Malignant neoplasm of head of pancreas (HCC) Expected: 11/10/2022 (Approximate), Expires: 10/29/2023 [facility] Work Phone: Comment on above: Expected: 11/10/2022 (Approximate), Expires: 10/29/2023 Start: 09-13-2022 End: 11-13-2022 Cancer Ag 19-9 [Units/volume] in Serum or Plasma CA 19-9 BLD Lab Routine Malignant neoplasm of head of pancreas (HCC) Expected: 09/13/2022 (Approximate), Expires: 11/13/2022 [facility] Work Phone: Comment on above: Expected: 09/13/2022 (Approximate), Expires: 11/13/2022 Start: 09-13-2022 End: 11-13-2022 CBC W Auto Differential panel - Blood CBC + DIFF Lab Routine Malignant neoplasm of head of pancreas (HCC) Expected: 09/13/2022 (Approximate), Expires: 11/13/2022 [facility] Work Phone: Comment on above: Expected: 09/13/2022 (Approximate), Expires: 11/13/2022 Start: 09-13-2022 End: 11-13-2022 Comprehensive metabolic 2000 panel - Serum or Plasma COMP METABOLIC PANEL Lab Routine Malignant neoplasm of head of pancreas (HCC) Expected: 09/13/2022 (Approximate), Expires: 11/13/2022 [facility] Work Phone: Comment on above: Expected: 09/13/2022 (Approximate), Expires: 11/13/2022 Start: 08-03-2022 End: 10-03-2022 Cancer Ag 19-9 [Units/volume] in Serum or Plasma CA 19-9 BLD Lab Routine Malignant neoplasm of head of pancreas (HCC) Expected: 08/03/2022 (Approximate), Expires: 10/03/2022 [facility] Work Phone: Comment on above: Expected: 08/03/2022 (Approximate), Expires: 10/03/2022 Start: 08-03-2022 End: 10-03-2022 CBC W Auto Differential panel - Blood CBC + DIFF Lab Routine Malignant neoplasm of head of pancreas (HCC) Expected: 08/03/2022 (Approximate), Expires: 10/03/2022 [facility] Work Phone: Comment on above: Expected: 08/03/2022 (Approximate), Expires: 10/03/2022 Start: 08-03-2022 End: 10-03-2022 Comprehensive metabolic 2000 panel - Serum or Plasma COMP METABOLIC PANEL Lab Routine Malignant neoplasm of head of pancreas (HCC) Expected: 08/03/2022 (Approximate), Expires: 10/03/2022 [facility] Work Phone: Comment on above: Expected: 08/03/2022 (Approximate), Expires: 10/03/2022 Start: 08-03-2022 End: 07-29-2023 Ct abdomen & pelvis w/contrast material CT ABD/PEL W IVCON Radiology Routine Malignant neoplasm of head of pancreas (HCC) Expected: 08/03/2022, Expires: 07/29/2023 [facility] Work Phone: Comment on above: Expected: 08/03/2022 , Expires: 07/29/2023 Start: 08-03-2022 End: 07-29-2023 CT CHEST W IVCON CT CHEST W IVCON Radiology Routine Malignant neoplasm of head of pancreas (HCC) Expected: 08/03/2022, Expires: 07/29/2023 [facility] Work Phone: Comment on above: Expected: 08/03/2022 , Expires: 07/29/2023 Start: 06-01-2022 End: 08-01-2022 Cancer Ag 19-9 [Units/volume] in Serum or Plasma [facility] Work Phone: Comment on above: Expected: 06/01/2022 (Approximate), Expires: 08/01/2022 Start: 06-01-2022 End: 08-01-2022 CBC W Auto Differential panel - Blood CBC + DIFF Lab Routine Malignant neoplasm of head of pancreas (HCC) Expected: 06/01/2022 (Approximate), Expires: 08/01/2022 [facility] Work Phone: Comment on above: Expected: 06/01/2022 (Approximate), Expires: 08/01/2022 Start: 06-01-2022 End: 08-01-2022 Comprehensive metabolic 2000 panel - Serum or Plasma COMP METABOLIC PANEL Lab Routine Malignant neoplasm of head of pancreas (HCC) Expected: 06/01/2022 (Approximate), Expires: 08/01/2022 [facility] Work Phone: Comment on above: Expected: 06/01/2022 (Approximate), Expires: 08/01/2022 Start: 06-01-2022 End: 06-10-2023 Ct abdomen & pelvis w/contrast material CT ABD/PEL W IVCON Radiology Routine Malignant neoplasm of head of pancreas (HCC) Expected: 06/01/2022, Expires: 06/10/2023 [facility] Work Phone: Comment on above: Expected: 06/01/2022 , Expires: 06/10/2023 Start: 06-01-2022 End: 06-10-2023 CT CHEST W IVCON CT CHEST W IVCON Radiology Routine Malignant neoplasm of head of pancreas (HCC) Expected: 06/01/2022, Expires: 06/10/2023 [facility] Work Phone: Comment on above: Expected: 06/01/2022 , Expires: 06/10/2023 Start: 05-22-2022 ADVANCE DIRECTIVE DISCUSSION ADVANCE DIRECTIVE DISCUSSION [facility] Start: 05-22-2022 DEPRESSION ASSESSMENT DEPRESSION ASS ESSMENT [facility] Start: 05-13-2022 End: 07-13-2022 Cancer Ag 19-9 [Units/volume] in Serum or Plasma CA 19-9 BLD Lab Routine Malignant neoplasm of head of pancreas (HCC) Anemia, unspecified type Expected: 05/13/2022, Expires: 07/13/2022 [facility] Work Phone: Comment on above: Expected: 05/13/2022 , Expires: 07/13/2022 Start: 05-13-2022 End: 07-13-2022 CBC W Auto Differential panel - Blood CBC + DIFF Lab Routine Malignant neoplasm of head of pancreas (HCC) Anemia, unspecified type Expected: 05/13/2022, Expires: 07/13/2022 [facility] Work Phone: Comment on above: Expected: 05/13/2022 , Expires: 07/13/2022 Start: 05-13-2022 End: 07-13-2022 Comprehensive metabolic 2000 panel - Serum or Plasma COMP METABOLIC PANEL Lab Routine Malignant neoplasm of head of pancreas (HCC) Anemia, unspecified type Expected: 05/13/2022, Expires: 07/13/2022 [facility] Work Phone: Comment on above: Expected: 05/13/2022 , Expires: 07/13/2022 Start: 05-11-2022 End: 07-11-2022 CREATININE BLD CREATININE BLD Lab Routine Malignant neoplasm of head of pancreas (HCC) Expected: 05/11/2022, Expires: 07/11/2022 [facility] Work Phone: Comment on above: Expected: 05/11/2022 , Expires: 07/11/2022 Start: 04-06-2022 End: 06-06-2022 Cancer Ag 19-9 [Units/volume] in Serum or Plasma CA 19-9 BLD Lab Routine Malignant neoplasm of head of pancreas (HCC) Expected: 04/06/2022, Expires: 06/06/2022 [facility] Work Phone: Comment on above: Expected: 04/06/2022 , Expires: 06/06/2022 Start: 04-06-2022 End: 06-06-2022 CBC W Auto Differential panel - Blood [facility] Work Phone: Comment on above: Expected: 04/06/2022 , Expires: 06/06/2022 Start: 04-06-2022 End: 06-06-2022 Comprehensive metabolic 2000 panel - Serum or Plasma COMP METABOLIC PANEL Lab Routine Malignant neoplasm of head of pancreas (HCC) Expected: 04/06/2022, Expires: 06/06/2022 [facility] Work Phone: Comment on above: Expected: 04/06/2022 , Expires: 06/06/2022 Start: 03-30-2022 End: 05-30-2022 Cancer Ag 19-9 [Units/volume] in Serum or Plasma [facility] Work Phone: Comment on above: Expected: 03/30/2022 , Expires: 05/30/2022 Start: 03-30-2022 End: 05-30-2022 CBC W Auto Differential panel - Blood CBC + DIFF Lab Routine Malignant neoplasm of head of pancreas (HCC) Expected: 03/30/2022, Expires: 05/30/2022 [facility] Work Phone: Comment on above: Expected: 03/30/2022 , Expires: 05/30/2022 Start: 03-30-2022 End: 05-30-2022 Cobalamin (Vitamin B12) [Mass/volume] in Serum or Plasma [facility] Work Phone: Comment on above: Expected: 03/30/2022 , Expires: 05/30/2022 Start: 03-30-2022 End: 05-30-2022 Comprehensive metabolic 2000 panel - Serum or Plasma COMP METABOLIC PANEL Lab Routine Malignant neoplasm of head of pancreas (HCC) Expected: 03/30/2022, Expires: 05/30/2022 [facility] Work Phone: Comment on above: Expected: 03/30/2022 , Expires: 05/30/2022 Start: 03-23-2022 End: 05-23-2022 CBC W Auto Differential panel - Blood CBC + DIFF Lab Routine Malignant neoplasm of head of pancreas (HCC) Expected: 03/23/2022 (Approximate), Expires: 05/23/2022 [facility] Work Phone: Comment on above: Expected: 03/23/2022 (Approximate), Expires: 05/23/2022 Start: 03-23-2022 End: 05-23-2022 Comprehensive metabolic 2000 panel - Serum or Plasma COMP METABOLIC PANEL Lab Routine Malignant neoplasm of head of pancreas (HCC) Expected: 03/23/2022 (Approximate), Expires: 05/23/2022 [facility] Work Phone: Comment on above: Expected: 03/23/2022 (Approximate), Expires: 05/23/2022 Start: 03-16-2022 End: 05-16-2022 CBC W Auto Differential panel - Blood CBC + DIFF Lab Routine Malignant neoplasm of head of pancreas (HCC) Expected: 03/16/2022 (Approximate), Expires: 05/16/2022 [facility] Work Phone: Comment on above: Expected: 03/16/2022 (Approximate), Expires: 05/16/2022 Start: 03-16-2022 End: 05-16-2022 Comprehensive metabolic 2000 panel - Serum or Plasma COMP METABOLIC PANEL Lab Routine Malignant neoplasm of head of pancreas (HCC) Expected: 03/16/2022 (Approximate), Expires: 05/16/2022 [facility] Work Phone: Comment on above: Expected: 03/16/2022 (Approximate), Expires: 05/16/2022 Start: 03-16-2022 End: 05-16-2022 Ferritin [Mass/volume] in Serum or Plasma [facility] Work Phone: Comment on above: Expected: 03/16/2022 , Expires: 05/16/2022 Start: 03-16-2022 End: 05-16-2022 Folate [Mass/volume] in Serum or Plasma [facility] Work Phone: Comment on above: Expected: 03/16/2022 , Expires: 05/16/2022 Start: 03-16-2022 End: 05-16-2022 Iron and Iron binding capacity panel - Serum or Plasma [facility] Work Phone: Comment on above: Expected: 03/16/2022 , Expires: 05/16/2022 Start: 03-16-2022 End: 05-16-2022 MISC SEND OUT TST 1 [facility] Work Phone: Comment on above: Expected: 03/16/2022 , Expires: 05/16/2022 Start: 03-08-2022 End: 05-08-2022 Cancer Ag 19-9 [Units/volume] in Serum or Plasma CA 19-9 BLD Lab Routine Malignant neoplasm of head of pancreas (HCC) Expected: 03/08/2022 (Approximate), Expires: 05/08/2022 [facility] Work Phone: Comment on above: Expected: 03/08/2022 (Approximate), Expires: 05/08/2022 Start: 03-08-2022 End: 05-08-2022 CBC W Auto Differential panel - Blood CBC + DIFF Lab Routine Malignant neoplasm of head of pancreas (HCC) Expected: 03/08/2022 (Approximate), Expires: 05/08/2022 [facility] Work Phone: Comment on above: Expected: 03/08/2022 (Approximate), Expires: 05/08/2022 Start: 03-08-2022 End: 05-08-2022 Comprehensive metabolic 2000 panel - Serum or Plasma COMP METABOLIC PANEL Lab Routine Malignant neoplasm of head of pancreas (HCC) Expected: 03/08/2022 (Approximate), Expires: 05/08/2022 [facility] Work Phone: Comment on above: Expected: 03/08/2022 (Approximate), Expires: 05/08/2022 Start: 03-08-2022 End: 05-08-2022 MISC SEND OUT TST 1 MISC SEND OUT TST 1 Lab Routine Malignant neoplasm of head of pancreas (HCC) Expected: 03/08/2022 (Approximate), Expires: 05/08/2022 [facility] Work Phone: Comment on above: Expected: 03/08/2022 (Approximate), Expires: 05/08/2022 Start: 03-01-2022 End: 03-24-2023 CT CHEST W IVCON CT CHEST W IVCON Radiology Routine Malignant neoplasm of head of pancreas (HCC) Expected: 03/01/2022, Expires: 03/24/2023 [facility] Work Phone: Comment on above: Expected: 03/01/2022 , Expires: 03/24/2023 Start: 02-23-2022 End: 04-25-2022 PT panel - Platelet poor plasma by Coagulation assay PROTHROMBIN TIME/PT Lab Routine Malignant neoplasm of pancreas, unspecified location of malignancy (HCC) Expected: 02/23/2022, Expires: 04/25/2022 [facility] Work Phone: Comment on above: Expected: 02/23/2022 , Expires: 04/25/2022 Start: 01-20-2022 Influenza vaccination C [facility] Start: 12-04-2021 Colonoscopy COLONOSCOPY [facility] Start: 12-04-2021 COLORECTAL CANCER SCREENING COLORECTAL CANCER SCREENING [facility] Start: 12-04-2021 Screening for malign ant neoplasm of colon [facility] Start: 05-22-2021 ADVANCE DIRECTIVE DISCUSSION ADVANCE DIRECTIVE DISCUSSION [facility] Start: 05-22-2021 DEPRESSION ASSESSMENT DEPRESSION ASS ESSMENT [facility] Start: 03-06-2021 Influenza vaccination LUNG CANCER SC REENING [facility] Start: 03-02-2021 Urine screening for protein Diabetes: Urine Protein Screening [facility] Start: 02-21-2021 COVID-19 VACCINE (2 - Booster for Charlotte series) COVID-19 VACCINE (2 - Booster for Charlotte series) [facility] Start: 01-24-2021 COVID-19 VACCINE (2 - [place] risk series) COVID-19 VACCINE (2 - [place] risk series) [facility] Start: 01-20-2021 Influenza vaccination INFLUENZA (#1) [facility] Start: 11-23-2020 Hepatitis B surface antibody level LDL Cholesterol [facility] Start: 03-23-2020 Annual Wellness Visi t (AWV) Annual Wellness Visit (AWV) [place], [place] Start: 03-18-2020 End: 03-18-2020 Office Visit 03/18/2020 Office Visit Oncology Dwyane Moy MD [address] [place] [address] [facility] of [facility] Start: 01-21-2020 Influenza vaccination Flu vaccine (# 1) [place], [place] Start: 2016 Pneumococcal 65+ yea rs Vaccine (1 of 1 - PPSV23) Pneumococcal 65+ years Vaccine (1 of 1 - PPSV23) [place] Start: 2016 PNEUMOCOCCAL: 65+ (1 - PCV) PNEUMOCOCCAL: 65+ (1 - PCV) [facility] Start: 2016 PNEUMOVAX AGE 65 AND OVER WITH 5YR LOOKBACK (#1) PNEUMOVAX AGE 65 AND OVER WITH 5YR LOOKBACK (#1) [facility] Start: 2011 RSV Vaccine (1 - 1-d ose 60+ series) RSV Vaccine (1 - 1-dose 60+ series) [facility] Start: 2011 RSV Vaccine (1 - Ris k 60-74 years 1-dose series) RSV Vaccine (1 - Risk 60-74 years 1-dose series) [facility] Start: 2001 Screening for malign ant neoplasm of colon Colon cancer screen colonoscopy [place], [place] Start: 2001 Shingles Vaccine (1 of 2) Shingles Vaccine (1 of 2) [place] Start: 2001 SHINGRIX VACCINE (1 of 2) SHINGRIX VACCINE (1 of 2) [facility] Start: 1996 COLOGUARD (FIT-DNA) COLOGUARD (FIT-D NA) [facility] Start: [address] COLONOGRAPHY [facility] Start: 1996 FECAL OCCULT BLOOD FECAL OCCULT BLOO D [facility] Start: 1996 Screening for malign ant neoplasm of colon [facility] Start: 1996 SIGMOIDOSCOPY SIGMOIDOSCOPY [facility] Start: 1991 Diabetes screen Diabetes screen [place], [place] Start: 1991 Lipid panel Lipid screen [place], [place] Start: 1970 DTaP/Tdap/Td vaccine (1 - Tdap) DTaP/Tdap/Td vaccine (1 - Tdap) [place], [place] Start: 1970 SHINGRIX VACCINE (1 of 2) SHINGRIX VACCINE (1 of 2) [facility] Start: 1970 Urine microalbumin profile DTAP,TDAP,TD (1 - Tdap) [facility] Start: 1969 Annual PCP Team [employer]ter jace Disease Visit Annual PCP Team Chronic Disease Visit [facility] Start: 1969 Anxiety Screening Anxiety Screening [facility] Start: 1969 Depression Screening Depression Scre ening [facility] Start: 1969 HEPATITIS C SCREENING HEPATITIS C [facility] Start: 1969 Hepatitis C screening Hepatitis C [facility] Start: 1963 Adult depression screening assessment DEPRESSION SCREENING [facility] Start: 1961 Diabetic foot examination Diabetic Foot Exam [facility] Start: 1961 Glaucoma screening [facility] Start: 1961 Hepatitis B screening Urine Albumin:Creatinine Ratio [facility] Start: 1957 Pneumococcal Vaccine : 65+ (1 - PCV) Pneumococcal Vaccine: 65+ (1 - PCV) [facility] Start: 1957 Pneumococcal Vaccine : 65+ (1 of 2 - PCV) Pneumococcal Vaccine: 65+ (1 of 2 - PCV) [facility] Start: 1957 PNEUMOCOCCAL: 65+ (1 - PCV) PNEUMOCOCCAL: 65+ (1 - PCV) [facility] Start: 1951 Abdominal aortic aneurysm screening [facility] Start: 1951 ABDOMINAL AORTIC ANEURYSM SCREENING ABDOMINAL AORTIC ANEURYSM SCREENING [facility] Start: 1951 Hepatitis C screening Hepatitis C [place], [place] Start: 1951 Screening for malign ant neoplasm of colon [facility] BLOOD CULTURE 1 BLOOD CULTURE 1 Lab Routine 03/24/2024 10:05 PM [facility] BLOOD CULTURE 2 BLOOD CULTURE 2 Lab Routine 03/24/2024 10:06 PM [facility] Cancer Ag 19-9 [Units/volume] in Serum or Plasma CA 19-9 BLD Lab Routine Malignant neoplasm of head of pancreas (HCC) 04/20/2022 9:46 AM [facility] Work Phone: Cancer Ag 19-9 [Units/volume] in Serum or Plasma CA 19-9 BLD Lab Routine Malignant neoplasm of head of pancreas (HCC) Anemia, unspecified type 05/11/2022 8:59 AM [facility] Work Phone: Cancer Ag 19-9 [Units/volume] in Serum or Plasma CA 19-9 BLD Lab Routine Malignant neoplasm of head of pancreas (HCC) 06/29/2022 10:17 AM [facility] Work Phone: Cancer Ag 19-9 [Units/volume] in Serum or Plasma CA 19-9 BLD Lab Routine Malignant neoplasm of head of pancreas (HCC) 08/02/2022 10:21 AM [facility] Work Phone: Cancer Ag 19-9 [Units/volume] in Serum or Plasma CA 19-9 BLD Lab Routine Malignant neoplasm of head of pancreas (HCC) 09/29/2022 10:18 AM [facility] Work Phone: Cancer Ag 19-9 [Units/volume] in Serum or Plasma CA 19-9 BLD Lab Routine 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) 02/01/2023 11:18 AM [facility] Work Phone: Cancer Ag 19-9 [Units/volume] in Serum or Plasma CA 19-9 BLD Lab Routine 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) Type 2 diabetes mellitus without complication, with long-term current use of insulin (HCC) LINDSEY (dyspnea on exertion) 04/05/2023 1:44 PM [facility] Work Phone: Cancer Ag 19-9 [Units/volume] in Serum or Plasma CA 19-9 BLD Lab Routine Type 2 diabetes mellitus without complication, with long-term current use of insulin (HCC) Severe protein-calorie malnutrition (HCC) Malignant neoplasm of head of pancreas (HCC) Anemia, unspecified type 05/05/2023 1:13 PM [facility] [employer] Work Phone: Cancer Ag 19-9 [Units/volume] in Serum or Plasma CA 19-9 BLD Lab Routine Malignant neoplasm of head of pancreas (HCC) 07/05/2023 10:33 AM [facility] [employer] Work Phone: Cancer Ag 19-9 [Units/volume] in Serum or Plasma CA 19-9 BLD Lab Routine Malignant neoplasm of head of pancreas (HCC) Type 2 diabetes mellitus without complication, with long-term current use of insulin (HCC) Neuropathy Severe protein-calorie malnutrition (HCC) 08/02/2023 10:23 AM [facility] Work Phone: Cancer Ag 19-9 [Units/volume] in Serum or Plasma CA 19-9 BLD Lab Routine Malignant neoplasm of head of pancreas (HCC) 08/23/2023 10:51 AM [email or web address] Phone: Cancer Ag 19-9 [Units/volume] in Serum or Plasma CA 19-9 Lab Routine Malignant neoplasm of head of pancreas (HCC) Neuropathy 10/03/2023 11:18 AM [facility] [employer] Work Phone: Cancer Ag 19-9 [Units/volume] in Serum or Plasma CA 19-9 Lab Routine Malignant neoplasm of head of pancreas (HCC) 10/31/2023 10:33 AM T [facility] Work Phone: Cancer Ag 19-9 [Units/volume] in Serum or Plasma CA 19-9 Lab Routine Malignant neoplasm of head of pancreas (HCC) 11/20/2023 8:09 AM [facility] Work Phone: Cancer Ag 19-9 [Units/volume] in Serum or Plasma CA 19-9 Lab Routine Malignant neoplasm of head of pancreas (HCC) 02/12/2024 8:46 AM [facility] Work Phone: Cancer Ag 19-9 [Units/volume] in Serum or Plasma CA 19-9 Lab Routine Malignant neoplasm of head of pancreas (HCC) 04/02/2024 9:50 AM [facility] Work Phone: Clostridioides diffi cile toxin genes [Presence] in Stool by MIRTHA with probe detection C. DIFFICILE PCR Lab Routine Malignant neoplasm of head of pancreas (HCC) Diarrhea, unspecified type Ordered: 03/07/2022 [facility] Work Phone: Comment on above: Ordered: 03/07/2022 End: 05-04-2025 CT Abdomen and Pelvis W contrast IV CT ABD/PEL W IVCON Radiology Routine Malignant neoplasm of head of pancreas (HCC) 1 Occurrences starting 04/04/2024 until 05/04/2025 [facility] Work Phone: Comment on above: 1 Occurrences starti ng 04/04/2024 until 05/04/2025 End: 05-04-2025 CT Chest W contrast IV CT CHEST W IVCON Radiology Routine Malignant neoplasm of head of pancreas (HCC) 1 Occurrences starting 04/04/2024 until 05/04/2025 [facility] Comment on above: 1 Occurrences starti ng 04/04/2024 until 05/04/2025 End: 01-20-2024 CT CHEST W IVCON PE CT CHEST W IVCON PE Radiology STAT Chest pain, unspecified type LINDSEY (dyspnea on exertion) 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) Anemia, unspecified type Type 2 diabetes mellitus without complication, with long-term current use of insulin (HCC) 1 Occurrences starting 12/21/2022 until 01/20/2024 [facility] Work Phone: Comment on above: 1 Occurrences starti ng 12/21/2022 until 01/20/2024 IR PORTOCATH PLACEMENT IR PORTOC ATH PLACEMENT Radiology Routine Malignant neoplasm of head of pancreas (HCC) Ordered: 02/22/2022 [facility] Work Phone: Comment on above: Ordered: 02/22/2022 Patient Education Head injury in adults [facility] Work Phone: Patient referral [facility] Work Phone: REFERRAL FOR ADDITIO NAL BIOMARKER AND MOLECULAR TESTING REFERRAL FOR ADDITIONAL BIOMARKER AND MOLECULAR TESTING Lab Routine Malignant neoplasm of head of pancreas (HCC) 02/27/2022 10:40 PM EDT [facility] Work Phone: RFA Portal vein View s W contrast IV IR PORTAL VENOGRAM Radiology STAT Central line complication, initial encounter Ordered: 11/29/2023 [facility] Work Phone: Comment on above: Ordered: 11/29/2023 UA DIP, URINE (POC) UA DIP, URIN E (POC) Lab Routine Malignant neoplasm of head of pancreas (HCC) Frequency of urination Ordered: 10/11/2023 [facility] Comment on above: Ordered: 10/11/2023 End: 10-02-2024 US Lower extremity veins - bilateral US LEG VEIN DVT [facility] Vascular Lab STAT Leg swelling 1 Occurrences starting 10/03/2023 until 10/02/2024 [facility] Comment on above: 1 Occurrences starti ng 10/03/2023 until 10/02/2024 End: 12-21-2024 XR Chest Single view XR CHEST 1V FRONTAL PORT Radiology Routine Malignant neoplasm of head of pancreas (HCC) Central line complication, initial encounter 1 Occurrences starting 11/22/2023 until 12/21/2024 [facility] Work Phone: Comment on above: 1 Occurrences starti ng 11/22/2023 until 12/21/2024 [facility] Immunizations Immunization Date Immunization Notes Care Provider Fa cility 12-15-2022 tetanus toxoid, redu pascual diphtheria toxoid, and acellular pertussis vaccine, adsorbed II Giovanni Salinas Work Phone: [facility] 12-27-2020 COVID-19 vaccine ([place]) Eyad Manriquez MD Work Phone: [facility] Payers Date Payer Category Payer Self-pay [id number] 2019 Private Health Insurance [employer]ET[employer] A ETNA MEDICARE SUPPLEMENT [id number] 2019-Present [phone] [address] [address] [place] [address] Indemnity [id number] 2019 Private Health Insurance [id number] 2016 Medicare MEDICARE MEDICAR E A AND B [id number] 2016-Present [phone] [address] [address] [place] [address] Medicare [id number] 2016 Medicare [id number] .[id number] 1959 Medicare [id number] .[id number] 1959 Private Health Insurance CLI [id number] .[id number] 1951 Unknown [id number] 2.16.840.1.118515.3.579 .2.173 1951 Unknown [id number] 2.16.840.1.910481.3.579 .2.173 1951 Unknown [id number] 2.16.840.1.385929.3.579 .2.593 1951 Unknown [id number] 2.16.840.1.930737.3.579 .2.593 1951 Unknown [id number] 2.16.840.1.804305.3.579 .2.593 1951 Unknown [id number] 2.16.840.1.363593.3.579 .2.593 1951 Unknown [id number] 2.16.840.1.499636.3.579 .2.593 1951 Unknown [id number] 2.16.840.1.555864.3.579 .2.593 1951 Unknown [id number] 2.16.840.1.482645.3.579 .2.593 1951 Unknown [id number] 2.16.840.1.148842.3.579 .2.593 1951 Unknown [id number] 2.16.840.1.847817.3.579 .2.593 1951 Unknown [id number] 2.16.840.1.118531.3.579 .2.593 1951 Unknown [id number] 2.16.840.1.632647.3.579 .2.593 1951 Unknown [id number] 2.16.840.1.826741.3.579 .2.593 1951 Unknown [id number] 2.16.840.1.438498.3.579 .2.593 1951 Unknown [id number] 2.16.840.1.648520.3.579 .2.593 1951 Unknown [id number] 2.16.840.1.179235.3.579 .2.1259 1951 Unknown [id number] 2.16.840.1.008103.3.579 .2.1259 1951 Unknown [id number] 2.16.840.1.411886.3.579 .2.1259 Unknown [id number] 2.16.840.1.398771.3.579 .2.531 Social History Date Type Detail Facility Start: 03-09-2020 Tobacco smoking stat us [facility] Unknown if ever smoked [facility] Start: 1950 Sex Assigned At Not on file M [facility] Start: 03-18-2020 End: 10-26-2022 Tobacco smoking status NHIS Former smoker [facility] Start: 03-18-1977 End: 11-20-2019 History of tobacco use Current smoker [facility] Start: 03-18-1977 End: 11-20-2019 History of tobacco use Cigarette Smoker [facility] Start: 03-18-2020 End: 04-01-2024 Alcohol intake Ex-drinker (finding) Zayda Kwan Y Start: 05-08-2020 End: 11-02-2023 Cigarettes smoked current (pack per day) - Reported 1 [facility] Start: 05-08-2020 End: 10-26-2022 Tobacco use and exposure Smokeless tobacco non-user [facility] Start: 03-24-2020 History SDOH Financial 5 [facility] Start: 03-24-2020 History SDOH Food Worry 1 [facility] Start: 03-24-2020 History SDOH Transpo rt Med 2 [facility] Start: 1950 Sex Assigned At Male [facility] Start: 02-05-2022 End: 04-20-2022 Exposure to SARS-CoV-2 (event) Not sure [facility] History of tobacco use Passive smoker [facility] Start: 11-10-2022 End: 11-02-2023 Tobacco use panel [facility] How hard is it for y ou to pay for the very basics like food, housing, medical care, and heating Not hard at all [facility] (I/We) worried frederic er (my/our) food would run out before (I/we) got money to buy more. Never true [facility] Start: 01-13-2021 Gender identity Identifies as male gender (finding) [facility] Within the last year , have [...] Equipment Origin al Text Equipment Identifier Dates [id number] Start: 10-26-2022 End: 06-08-2023 Comment on above: use to test BLOOD MCCARTHY GAR TWICE DAILY INJECT ONCE DAILY Tray Powerline Surecuff 5fr Polyurethane Catheter 1 Lumen Microintroducer - [id number] Start: 03-30-2020 Tray Powerline Surecuff 5fr Polyurethane Catheter 1 Lumen Microintroducer - [id number] Start: 12-15-2020 Mesh Surgipro Me dium Clear Polypropylene 2cm Surgical Nonabsorbable Plug - [id number] Start: 01-06-2021 Stent [place] Viabi l 8mm Metal 80mm 200cm Endoprosthesis No Hole Full Cover - [id number] Start: 2021 [id number] Start: 03-02-2022 Comment on above: Description: Port in serted at [facility] AV IR; Saline only flushes 1 each by Other route in the morning and 1 each before bedtime. [id number] Start: 12-02-2022 Use as instructed [id number] Start: 11-17-2022 End: 11-17-2023 use to test BLOO D SUGAR TWICE DAILY [id number] Start: 10-26-2022 End: 06-08-2023 INJECT ONCE DAILY [id number] Start: 10-26-2022 End: 06-08-2023 use to test BLOO D SUGAR TWICE DAILY [id number] Start: 10-26-2022 End: 06-08-2023 Power Port 8f Si ngle Lumen Venous [id number] Start: 12-29-2023 USE DIRECTED to test BLOOD SUGAR IN THE MORNING and BEFORE bedtime [id number] Start: 02-19-2024 Clinical Notes 03-09-2020 to 04-05-2024 [...] time, 12 pm scan time. DEVYN Pelayo [facility] 04-05-2024 Miscellaneous Notes I spoke with [...] visit. Raul Proctor documented in this encounter [facility] 04-04-2024 Telephone encounter Note Pt's spouse notified and agrees to CT. BRM/Yordy: CT orders pended. Clerical: Pt's spouse requests that you call her tomorrow afternoon to schedule the CT. Has only specific days that are available. Thanks, Allie Cortez RN [facility] 04-04-2024 Telephone encounter Note ----- Message from Vivek Smith MD sent at 04/04/2024 12:52 PM EST ----- Please inform the patient that his tumor marker has increased slightly. If in agreement please schedule CT chest/abdomen/pelvis to be done before his return visit. Raul Proctor [facility] 04-02-2024 History of Present illness Narrative [...] last visit he was admitted to [facility]. He was admitted 03/25/2024 through 03/26/2024 [...] Microsatellite stable, tumor mutational burden 2 KRAS [id number], RON [id number] positive LABORATORY DATA: Hemoglobin (g/dL) Date Value [...] 05/11/2022 (patient elected to stop chemo). Resumed [place] and Abraxane 11/23/2022 - 12/14/2022. Stopped due to poor tolerance. Restarted [place] and Abraxane dose reduced, 2 week on [...] 5. Hypotension The patient was admitted to [facility] 10/16/2023 with dehydration, hypoglycemia, and hypotension. Blood pressure currently stable on midodrine. Continue management per PCP. 6. Central line complication - ICD9: 996.74, ICD10: T82.9XXA Since October 2023 the patient had intermittent redness around the port tube under the skin over his right chest wall. Portogram 12/01/2023 at [facility] was negative. He was given oral antibiotics for possible infection and the symptoms resolved, but continued to recur with each infusion. The right chest infusaport was removed 12/29/2023 and was found to have a small tear noted in the catheter at/near the IJV entry. New Qsvlxc-i-Eqii placed 12/29/2023. Yordy Moncada APRN.ROBERT I spent a total of 30 minutes on the date of the service which included preparing to see the patient, blhr-jo-qeql patient care, completing clinical documentation, obtaining and/or reviewing separately obtained history, performing a medically appropriate examination, counseling and educating the patient/family/caregiver, ordering medications, tests, or procedures, independently interpreting results (not separately reported), and communicating results to the patient/family/caregiver. documented in this encounter [facility] 04-02-2024 Note [facility] 04-01-2024 History of Present illness Narrative Images [...] Flowsheet Row Patient Outreach from 03/29/2024 in [facility] with Katie Monday, HOME PLANNING CONSULTANT SALESPERSON Hospital Information ED, Hospital or Group Home Facility Discharge? Hospital Patient has been contacted within two business days of discharge Yes Diagnosis pneumonia, hyponatremia, weakness Discharge Date 03/26/24 Discharged To: Home Setting Discharge Hospital [facility] Engagement Call Start Time 1133 Admission [...] 500 mg by mouth Daily Continuous Glucose Psychology Teacher (FreeStyle Flaco 3 [place]) device 1 Device yearly 1 each 0 Continuous Glucose Sensor (FreeStyle Flaco 3 Plus Sensor) misc 1 Units See administration instructions 1 sensor every 15 days. 6 each 3 Drug Mercedes Unilet Lancets 30G misc 1 each by [...] 50 each 2 [DISCONTINUED] Continuous Blood Gluc Psychology Teacher (Dexcom G7 Psychology Teacher) device 1 Device yearly. 1 each 0 [...] follow-ups on file. documented in this encounter [facility] 03-18-2024 Telephone encounter Note Patient coming in Monday03/27/24 for follow up treatment. Please add lab orders. Thanks. Christi Blum MA [facility] 03-18-2024 Miscellaneous Notes Patient coming in Monday03/27/24 for follow up treatment. Please add lab orders. Thanks. Christi Blum MA documented in this encounter [facility] 03-07-2024 Telephone encounter Note Pt notified and will be here today at 11 for treatment. Josephine Salomon RN [facility] Work Phone: 03-07-2024 Miscellaneous Notes Pt [...] when to restage. documented in this encounter [facility] 03-07-2024 Telephone encounter Note ----- Message from Vivek Smith MD sent at 03/06/2024 4:18 PM EDT ----- Please inform the patient that his tumor marker is relatively stable. We will continue with chemo as planned. When he returns in 3 weeks we will then discuss when to restage. [facility] 03-05-2024 Nurse Note Can patient take Tylenol? Janet Dotson MA [facility] 03-05-2024 Nurse Note Can patient take Tylenol? Janet Dotson MA documented in this encounter [facility] 03-04-2024 Note [facility] 03-04-2024 History of Present illness Narrative PATIENT [...] polyneuropathy, without long-term current use of insulin ([facility]) 06/07/2023 Gastric outlet obstruction Obstructive [...] Microsatellite stable, tumor mutational burden 2 KRAS [id number], RON [id number] positive LABORATORY DATA: Hemoglobin (g/dL) Date Value [...] 05/11/2022 (patient elected to stop chemo). Resumed [place] and Abraxane 11/23/2022 - 12/14/2022. Stopped due to poor tolerance. Restarted [place] and Abraxane dose reduced, 2 week on [...] 5. Hypotension The patient was admitted to [facility] 10/16/2023 with dehydration, hypoglycemia, and hypotension. Blood pressure currently stable on midodrine. Continue management per PCP. 6. Central line complication - ICD9: 996.74, ICD10: T82.9XXA Since October 2023 the patient had intermittent redness around the port tube under the skin over his right chest wall. Portogram 12/01/2023 at [facility] was negative. He was given oral antibiotics for possible infection and the symptoms resolved, but continued to recur with each infusion. The right chest infusaport was removed 12/29/2023 and was found to have a small tear noted in the catheter at/near the IJV entry. New Momwoh-k-Esyn placed 12/29/2023. Vivek Smith MD documented in this encounter [facility] 02-10-2024 Note [facility] 02-10-2024 History of Present illness Narrative PATIENT [...] Microsatellite stable, tumor mutational burden 2 KRAS [id number], RON [id number] positive LABORATORY DATA: Hemoglobin (g/dL) Date Value [...] 05/11/2022 (patient elected to stop chemo). Resumed [place] and Abraxane 11/23/2022 - 12/14/2022. Stopped due to poor tolerance. Restarted [place] and Abraxane dose reduced, 2 week on [...] 5. Hypotension The patient was admitted to [facility] 10/16/2023 with dehydration, hypoglycemia, and hypotension. Blood pressure currently stable on midodrine. Continue management per PCP. 6. Central line complication - ICD9: 996.74, ICD10: T82.9XXA Since October 2023 the patient had intermittent redness around the port tube under the skin over his right chest wall. Portogram 12/01/2023 at [facility] was negative. He was given oral antibiotics for possible infection and the symptoms resolved, but continued to recur with each infusion. The right chest infusaport was removed 12/29/2023 and was found to have a small tear noted in the catheter at/near the IJV entry. New Swxrei-s-Eogy placed 12/29/2023. Vivek Smith MD documented in this encounter [facility] 01-23-2024 History of Present illness Narrative [...] Microsatellite stable, tumor mutational burden 2 KRAS [id number], RON [id number] positive LABORATORY DATA: Hemoglobin (g/dL) Date Value [...] 05/11/2022 (patient elected to stop chemo). Resumed [place] and Abraxane 11/23/2022 - 12/14/2022. Stopped due to poor tolerance. Restarted [place] and Abraxane dose reduced, 2 week on [...] 5. Hypotension The patient was admitted to [facility] 10/16/2023 with dehydration, hypoglycemia, and hypotension. Blood pressure currently stable on midodrine. Continue management per PCP. 6. Central line complication - ICD9: 996.74, ICD10: T82.9XXA Since October 2023 the patient had intermittent redness around the port tube under the skin over his right chest wall. Portogram 12/01/2023 at [facility] was negative. He was given oral [...] which included preparing to see the patient, smed-ay-giah patient care, completing clinical documentation, performing a medically appropriate examination, counseling and educating the patient/family/caregiver, ordering medications, tests, or procedures, independently interpreting results (not separately reported), communicating results to the patient/family/caregiver, and care coordination (not separately reported). documented in this encounter [facility] 01-23-2024 Note [facility] 01-04-2024 Telephone encounter Note Pt , Brittni, informed of MM message and denies any questions, needs or concerns at this time. Appointment verified. Key Travis RN [facility] 01-04-2024 Miscellaneous Notes Pt , Brittni, informed of MM message and denies any questions, needs or concerns at this time. Appointment verified. Key Travis RN ----- Message from Greta Wetzel PA-C sent at 01/04/2024 11:40 AM EDT ----- Please call with improving ca19-9 documented in this encounter [facility] 01-04-2024 Telephone encounter Note ----- Message from Greta Wetzel PA-C sent at 01/04/2024 11:40 AM EDT ----- Please call with improving ca19-9 [facility] 01-03-2024 Note [facility] 01-03-2024 History of Present illness Narrative PATIENT [...] Microsatellite stable, tumor mutational burden 2 KRAS [id number], RON [id number] positive LABORATORY DATA: Hemoglobin (g/dL) Date Value [...] 05/11/2022 (patient elected to stop chemo). Resumed [place] and Abraxane 11/23/2022 - 12/14/2022. Stopped due to poor tolerance. Restarted [place] and Abraxane dose reduced, 2 week on [...] 5. Hypotension The patient was admitted to [facility] 10/16/2023 with dehydration, hypoglycemia, and hypotension. Blood pressure currently stable on midodrine. Continue management per PCP. 6. Central line complication - ICD9: 996.74, ICD10: T82.9XXA Since October 2023 the patient had intermittent redness around the port tube under the skin over his right chest wall. Portogram 12/01/2023 at [facility] was negative. He was given oral [...] which included preparing to see the patient, djsy-iw-jnuy patient care, completing clinical documentation, performing a medically appropriate examination, counseling and educating the patient/family/caregiver, ordering medications, tests, or procedures, independently interpreting results (not separately reported), communicating results to the patient/family/caregiver, and care coordination (not separately reported). documented in this encounter [facility] 01-02-2024 Telephone encounter Note Patient coming in Monday01/03/24 for follow up treatment. Please add lab orders. Thanks. Christi Blum MA [facility] 12-27-2023 Miscellaneous Notes You are scheduled for a Port Removal, On 12/29/2023. You are to arrive at 09:00 am and Report to [facility]: [facility]: Radiology Outpatient Desk [id number] You can [...] Labs: Lab-work needs to be drawn? No.. Executive Staff Assistant/Transportation: How will you be arriving for your procedure? Private car. You will need a responsible adult to accompany you to and from the procedure. Your bulk delivery driver is required to stay with you until you are taken into the procedure room. documented in this encounter [facility] 12-27-2023 Telephone encounter Note You are scheduled for a Port Removal, On 12/29/2023. You are to arrive at 09:00 am and Report to [facility]: [facility]: Radiology Outpatient Desk [id number] You can [...] Labs: Lab-work needs to be drawn? No.. Executive Staff Assistant/Transportation: How will you be arriving for your procedure? Private car. You will need a responsible adult to accompany you to and from the procedure. Your bulk delivery driver is required to stay with you until you are taken into the procedure room. [facility] 12-26-2023 Telephone encounter Note Called pt unable to leave message at Home #. Left message non detailed message on Cell phone to call back to Radiology Office # [facility] 12-26-2023 Miscellaneous Notes Called pt unable to leave message at Home #. Left message non detailed message on Cell phone to call back to Radiology Office # documented in this encounter [facility] 12-13-2023 Note [facility] 12-13-2023 History of Present illness Narrative Alfred [...] RN documented in this encounter [facility] 12-10-2023 Note [facility] 12-10-2023 History of Present illness Narrative PATIENT [...] his right chest wall. Portogram 12/01/2023 at [facility] was negative. He was given oral antibiotics for possible infection and the symptoms have resolved. He feels relatively well today and desires to proceed with treatment as planned. Redness around port tube under skin right upper CW. Portagrtam 11/30 at [facility] neg. Given oral abx. Better now MEDICATIONS: [...] Microsatellite stable, tumor mutational burden 2 KRAS [id number], RON [id number] positive LABORATORY DATA: Hemoglobin (g/dL) Date Value [...] 05/11/2022 (patient elected to stop chemo). Resumed [place] and Abraxane 11/23/2022 - 12/14/2022. Stopped due to poor tolerance. Restarted [place] and Abraxane dose reduced, 2 week on [...] 5. Hypotension The patient was admitted to [facility] 10/16/2023 with dehydration, hypoglycemia, and hypotension. Blood pressure currently stable on midodrine. Continue management per PCP. 6. Central line complication - ICD9: 996.74, ICD10: T82.9XXA Since October 2023 the patient has had intermittent redness around the port tube under the skin over his right chest wall. Portogram 12/01/2023 at [facility] was negative. He was given oral antibiotics for possible infection and the symptoms have resolved. Will monitor closely for complications. If symptoms persist the port most likely would need to be changed. Vivek Smith MD documented in this encounter [facility] 12-05-2023 Telephone encounter Note Pt's notified of normal portogram results. Josephine Salomon RN [facility] Work Phone: 12-05-2023 Miscellaneous Notes Pt's notified of normal portogram results. Josephine Salomon RN documented in this encounter [facility] 11-29-2023 Telephone encounter Note Order faxed. Pt notified that we are ordering additional testing. Josephine Salomon RN [facility] Work Phone: 11-29-2023 Miscellaneous Notes Order faxed. Pt notified that we are ordering additional testing. Josephine Salomon RN Spoke with Mandi at [facility] who states they need a portogram order. [...] call back tomorrow morning to Mandi at [phone] ext [phone] Josephine Salomon RN Did the xray evaluate the catheter during injection of dye? We needed the actual tubing evaluated as this is where the redness occurs for him. To me, it looks like just a typical cxr, we used to do vemr-j-nezvo or venograms, but I don't know if [...] RN documented in this encounter [facility] 11-29-2023 Telephone encounter Note Spoke with Mandi at [facility] who states they need a portogram order. Explained to Mandi that we do not have a portogram order. Will fax IR central line injection order and in comments put portogram. Mandi aware of pt's situation and what we're looking for and will schedule this according. Please sign pending orders. Thanks Josephine Salomon RN [facility] 11-28-2023 Telephone encounter Note Called and spoke with radiology. They do not know what needs to be ordered for this and request that we call back tomorrow morning to Mandi at [phone] ext [phone] Josephine Salomon RN [facility] 11-28-2023 Telephone encounter Note Did the xray evaluate the catheter during injection of dye? We needed the actual tubing evaluated as this is where the redness occurs for him. To me, it looks like just a typical cxr, we used to do vdjn-m-izime or venograms, but I don't know if that is still possible. Greta Wetzel PA-C [facility] 11-28-2023 Telephone encounter Note Call received from pt's asking what is going to be done about pt's port and recurring infection. With both of patients last two treatments his port site became red and he was placed on antibiotics for this. Pt is still on his antibiotic currently. CXR was negative. Please advise Josephine Salomon RN [facility] 11-22-2023 Telephone encounter Note Signed. PSS: please schedule Greta Wetzel PA-C [facility] 11-22-2023 Miscellaneous Notes Signed. PSS: please [...] Patient has requested the xray be scheduled [facility] if not [facility] He prefers not to be schedule@[facility] Rx and xray orders pended. PATIENT WOULD LIKE TO BE CALLED documented in this encounter [facility] 11-22-2023 Telephone encounter Note Patient has [...] Patient has requested the xray be scheduled @[facility] if not [facility] He prefers not to be schedule@[facility] Rx and xray orders pended. PATIENT WOULD LIKE TO BE CALLED [facility] 11-22-2023 Note [facility] 11-22-2023 History of Present illness Narrative Patient [...] RN documented in this encounter [facility] 11-19-2023 Note [facility] 11-19-2023 History of Present illness Narrative PATIENT [...] Microsatellite stable, tumor mutational burden 2 KRAS [id number], RON [id number] positive LABORATORY DATA: Hemoglobin (g/dL) Date Value [...] concerning for metastases, stable. 08/18/2023 CT abdomen/pelvis ([facility] imaging) IMPRESSION: 1. Again noted is [...] 05/11/2022 (patient elected to stop chemo). Resumed [place] and Abraxane 11/23/2022 - 12/14/2022. Stopped due to poor tolerance. Restarted [place] and Abraxane dose reduced, 2 week on [...] 5. Hypotension The patient was admitted to [facility] 10/16/2023 with dehydration, hypoglycemia, and hypotension. Blood pressure currently stable on midodrine. Continue management per PCP. Vivek Smith MD documented in this encounter [facility] 11-17-2023 History of Present illness Narrative [...] PATIENT PRESENTS WITH AN IMPLANTABLE OR ATTACHED FLOOR SCRUBBER: No RADIOLOGY DEPARTMENT: CT; Exam(s) Completed: Chest Abdomen Pelvis PERIPHERAL IV DATA: Site assessment: Clean,Dry and Intact, Site disposition Discontinued SIGNED BY: RT Amanda(R) November 17, 2023 11:05 AM POWER port scanned 02/2022 documented in this encounter [facility] 11-17-2023 Note [facility] 11-17-2023 Note [facility] 11-02-2023 Note [facility] 11-02-2023 History of Present illness Narrative PATIENT NAME: Trinity Perry [facility] NO.: [id number] ATTENDING PHYSICIAN: Grace Bess MD DATE OF [...] lymph nodes. 2. NGS Tissue Based: KRAS [id number], EGFR amplified and RAC 1 Amplified , [...] covered stent 4. CT 01/2022- recurrence 5. [place] and Abraxane 03/16/2022-05/11/2022 ( elected to stop chemo) 6. Resumed [place] and Abraxane 11/23/2022- 12/14/2022- Stopped due to poor tolerance 7. Restarted [place] and Abraxane dose reduced, 2 week on [...] Range Status 10/31/2023 12.6 % Final Abs [place] Date Value Ref Range Status 10/31/2023 0.61 [...] rising CA 19-9 and elected to restart [place] and Abraxane 11/23/2022. However, he had a very poor tolerance of therapy and has had declinind QOL. Therapy was held at that time 12/14/2022 Discussed the current status and rising CA 199 and options of no therapy, repeat chemo with dose modifications and or Xeloda. He wants to restart [place] and Abraxane, which he was on 02/01/2023 and dose reduced and have a 2 week on and 2 week off schedule. Slight delay due to Thanksgiving and URI, his neuropathy is worst and the Abraxane was stopped and continued [place]. CT 04/2023 wit progressive disease. I had [...] which included preparing to see the patient, iryf-fg-dglp patient care, completing clinical documentation, performing a medically appropriate examination, counseling and educating the patient/family/caregiver, ordering medications, tests, or procedures, independently interpreting results (not separately reported), and communicating results to the patient/family/caregiver. documented in this encounter [facility] 11-02-2023 Note [facility] 11-02-2023 History of Present illness Narrative Patient [...] RN documented in this encounter [facility] 10-31-2023 Note Addended by: GRACE COHEN on: 10/31/2023 11:48 AM Modules accepted: Orders [facility] 10-31-2023 Miscellaneous Notes Addended by: GRACE BESS on: 10/31/2023 11:48 AM Modules accepted: Orders documented in this encounter [facility] 10-31-2023 Note [facility] 10-31-2023 History of Present illness Narrative PATIENT NAME: Trinity Perry [facility] NO.: [id number] ATTENDING PHYSICIAN: Grace Bess MD DATE OF [...] lymph nodes. 2. NGS Tissue Based: KRAS [id number], EGFR amplified and RAC 1 Amplified , [...] covered stent 4. CT 01/2022- recurrence 5. [place] and Abraxane 03/16/2022-05/11/2022 ( elected to stop chemo) 6. Resumed [place] and Abraxane 11/23/2022- 12/14/2022- Stopped due to poor tolerance 7. Restarted [place] and Abraxane dose reduced, 2 week on [...] Range Status 10/31/2023 12.6 % Final Abs [place] Date Value Ref Range Status 10/31/2023 0.61 [...] rising CA 19-9 and elected to restart [place] and Abraxane 11/23/2022. However, he had a very poor tolerance of therapy and has had declinind QOL. Therapy was held at that time 12/14/2022 Discussed the current status and rising CA 199 and options of no therapy, repeat chemo with dose modifications and or Xeloda. He wants to restart [place] and Abraxane, which he was on 02/01/2023 and dose reduced and have a 2 week on and 2 week off schedule. Slight delay due to Thanksgiving and URI, his neuropathy is worst and the Abraxane was stopped and continued [place]. CT 04/2023 wit progressive disease. I had [...] do not hesitate to contact me at [phone]. Grace Bess MD Hematology/Medical Oncology [facility] CC: Giovanni Hamlin MD I spent a total of 30 minutes on the date of the service which included preparing to see the patient, wkbh-qk-wnei patient care, completing clinical documentation, obtaining and/or reviewing separately obtained history, performing a medically appropriate examination, counseling and educating the patient/family/caregiver, ordering medications, tests, or procedures, and independently interpreting results (not separately reported). documented in this encounter [facility] 10-18-2023 Telephone encounter Note EMERGENCY ROOM [...] Patient reminded of her follow-up appointment with [facility] provider, Dr Bess on 11/03/23: Yes Next Blueprint Machine Operator outreach with patient scheduled? As needed [...] next outreach appointment? YES Josephine Salomon RN [facility] Work Phone: 10-18-2023 Miscellaneous Notes EMERGENCY [...] Patient reminded of her follow-up appointment with [facility] provider, Dr Bess on 11/03/23: Yes Next Blueprint Machine Operator outreach with patient scheduled? As needed [...] well. Darline: can you get records from [facility] please. Thanks Josephine Salomon RN documented in this encounter [facility] 10-17-2023 Telephone encounter Note Available records scanned. Patient is still there under observation. [facility] 10-17-2023 Telephone encounter Note Pt's calls stating pt went to the hospital last night because he wasn't responding to her. She states she doesn't think his glucometer is working right. Pt's sugar was much lower when the EMS checked it than what his was reading. states pt was very dehydrated as well. Darline: can you get records from [facility] please. Thanks Josephine Salomon RN [facility] 10-17-2023 Telephone encounter Note LVM to notify pt that script he requested was sent. [facility] 10-17-2023 Miscellaneous Notes LVM to notify [...] send a message. documented in this encounter [facility] 10-13-2023 Telephone encounter Note Cipro sent [facility] 10-13-[address] Osorio- if you are okay sending a script [facility] [place]. [facility] 10-13-2023 Telephone encounter Note Pt here [...] vacation but requested we send a message. [facility] 10-11-2023 Note HNO ID: [id number] Author: SAMINA RAE MA Service: ? Author Type: Life Sciences Instructor Type: Progress Notes Filed: 10/11/2023 13:27 Note Text: Back office UA test performed. Results entered in 5minutes and doctor notified. Samina Rae MA [facility] 10-11-2023 History of Present illness Narrative Back office UA test performed. Results entered in 5minutes and doctor notified. Samina Rae MA documented in this encounter [facility] 10-11-2023 Nurse Note Pt complaints of fatigue and weakness today. Samina Rae MA [facility] 10-11-2023 History of Present illness Narrative PATIENT NAME: Trinity Perry [facility] NO.: [id number] ATTENDING PHYSICIAN: Grace Bess MD DATE OF [...] lymph nodes. 2. NGS Tissue Based: KRAS [id number], EGFR amplified and RAC 1 Amplified , [...] covered stent. 4. CT 01/2022- Recurrence. 5. [place] and Abraxane 03/16/2022-05/11/2022 (Elected to stop chemo). 6. Resumed [place] and Abraxane 11/23/2022- 12/14/2022- Stopped due to poor tolerance. 7. Restarted [place] and Abraxane dose reduced, 2 week on [...] Range Status 10/11/2023 7.7 % Final Abs Vinton Date Value Ref Range Status 10/11/2023 0.77 [...] rising CA 19-9 and elected to restart [place] and Abraxane 11/23/2022. However, he had a very poor tolerance of therapy and has had decline in QOL. Therapy was held at that time 12/14/2022. Discussed the current status and rising CA 199 and options of no therapy, repeat chemo with dose modifications and or Xeloda. He wants to restart [place] and Abraxane, which he was on 02/01/2023 and dose reduced and have a 2 week on and 2 week off schedule. Slight delay due to Thanksgiving and URI, his neuropathy is worst and the Abraxane was stopped and continued [place]. CT 04/[address] Bess [...] which included preparing to see the patient, [id number] patient care, completing clinical documentation, performing a medically appropriate examination, counseling and educating the patient/family/caregiver, ordering medications, tests, or procedures, independently interpreting results (not separately reported), and communicating results to the patient/family/caregiver. documented in this encounter [facility] 10-11-2023 Note [facility] 10-11-2023 Nurse Note Pt complaints of fatigue and weakness today. Samina Rae MA documented in this encounter [facility] 10-05-2023 Telephone encounter Note Voicemail has not been set up yet. No way to leave a message. Josephine Salomon RN [facility] Work Phone: 10-05-2023 Miscellaneous Notes Voicemail has not been set up yet. No way to leave a message. Josephine Salomon RN ----- Message from Greta Wetzel PA-C sent at 10/04/2023 12:56 PM EDT ----- Please call with improving ca19-9 documented in this encounter [facility] 10-05-2023 Telephone encounter Note ----- Message from Greta Wetzel PA-C sent at 10/04/2023 12:56 PM EDT ----- Please call with improving ca19-9 [facility] 10-04-2023 Telephone encounter Note Pt's voicemail has not been set up yet. Unable to leave a message. Josephine Salomon RN [facility] Work Phone: 10-04-2023 Miscellaneous Notes Pt's voicemail has not been set up yet. Unable to leave a message. Josephine Salomon RN ----- Message from Greta Wetzel PA-C sent at 10/03/2023 4:09 PM EDT ----- Please call with negative cxr documented in this encounter [facility] 10-04-2023 Telephone encounter Note ----- Message from Greta Wetzel PA-C sent at 10/03/2023 4:09 PM EDT ----- Please call with negative cxr [facility] 10-04-2023 Telephone encounter Note Spoke with pt spouse. She discussed with pt. Legs not as swollen, will hold off for now and call back if needed. Denies further questions, needs or concerns at this time. KOFI Travis RN [facility] 10-04-2023 Miscellaneous Notes Spoke with pt [...] swelling if he wants. Greta Wetzel PA-C [facility] US department called with NEGATIVE DVT report. Key Travis RN Patient has been scheduled for STAT US today @ [facility] 10/02 between 1 & 1:30 pm. If positive, Radiology will call w/ results. Ora Jones documented in this encounter [facility] 10-03-2023 Telephone encounter Note Spoke with spouse, Brittni.aware of negative DVT per US, and MM recommendation. Pt is home, she is driving. She will discuss with him and call tomorrow with decision on Lasix. Key Travis RN [facility] 10-03-2023 Telephone encounter Note Please inform the patient of negative DVT. We could start lasix 20 mg daily for a week and see if it helps the swelling if he wants. Greta Wetzel PA-C [facility] 10-03-2023 Telephone encounter Note [facility] department called with NEGATIVE DVT report. Key Travis RN [facility] 10-03-2023 History of Present illness Narrative [...] PATIENT PRESENTS WITH AN IMPLANTABLE OR ATTACHED FLOOR SCRUBBER: No RADIOLOGY DEPARTMENT: General X-ray: Exam(s) Completed: Chest X-Ray PERIPHERAL IV DATA: Not applicable SIGNED BY: RT Amanda(R) October 03, 2023 12:12 PM documented in this encounter [facility] 10-03-2023 Note [facility] 10-03-2023 Telephone encounter Note Patient has been scheduled for STAT US today @ [facility] 10/02 between 1 & 1:30 pm. If positive, Radiology will call w/ results. Ora Jones [facility] 10-03-2023 History of Present illness Narrative PATIENT NAME: Trinity Gupta [facility] NO.: [id number] ATTENDING PHYSICIAN: Grace Bess MD DATE OF [...] lymph nodes. 2. NGS Tissue Based: KRAS [id number], EGFR amplified and RAC 1 Amplified , [...] covered stent. 4. CT 01/2022- Recurrence. 5. [place] and Abraxane 03/16/2022-05/11/2022 (Elected to stop chemo). 6. Resumed [place] and Abraxane 11/23/2022- 12/14/2022- Stopped due to poor tolerance. 7. Restarted [place] and Abraxane dose reduced, 2 week on [...] polyneuropathy, without long-term current use of insulin ([facility]) 06/07/2023 Gastric outlet obstruction Obstructive [...] Range Status 10/03/2023 12.7 % Final Abs Vinton Date Value Ref Range Status 10/03/2023 1.25 [...] rising CA 19-9 and elected to restart [place] and Abraxane 11/23/2022. However, he had a very poor tolerance of therapy and has had decline in QOL. Therapy was held at that time 12/14/2022. Discussed the current status and rising CA 199 and options of no therapy, repeat chemo with dose modifications and or Xeloda. He wants to restart [place] and Abraxane, which he was on 02/01/2023 and dose reduced and have a 2 week on and 2 week off schedule. Slight delay due to Thanksgiving and URI, his neuropathy is worst and the Abraxane was stopped and continued [place]. CT 04/[address] Bess [...] which included preparing to see the patient, [id number] patient care, completing clinical documentation, performing a medically appropriate examination, counseling and educating the patient/family/caregiver, ordering medications, tests, or procedures, independently interpreting results (not separately reported), and communicating results to the patient/family/caregiver. documented in this encounter [facility] 10-03-2023 Note [facility] 09-25-2023 Telephone encounter Note I will place these orders so my day is not delayed, however Yordy saw the patient last and should be the one to place the orders. Greta Wetzel PA-C [facility] 09-25-2023 Miscellaneous Notes I will place these orders so my day is not delayed, however Yordy saw the patient last and should be the one to place the orders. Greta Wetzel PA-C Patient has an appt on 10/03/23. Would you like labs, if so place orders. Janet Dotson MA documented in this encounter [facility] 09-25-2023 Telephone encounter Note Patient has an appt on 10/03/23. Would you like labs, if so place orders. Janet Dotson MA [facility] 09-18-2023 Telephone encounter Note Pt's notified, verbalized understanding Josephine Salomon RN [facility] Work Phone: 09-18-2023 Miscellaneous Notes Pt's [...] RN documented in this encounter [facility] 09-18-2023 Telephone encounter Note Agree if fevers and or worse he needs to let us know [facility] 09-18-2023 Telephone encounter Note Pt's calls [...] Please advise Josephine Salomon RN [facility] 09-13-2023 Note [facility] 09-13-2023 History of Present illness Narrative PATIENT NAME: Trinity Perry [facility] NO.: [id number] ATTENDING PHYSICIAN: Grace Bess MD DATE OF SERVICE: September 13, 2023 Some of the elements of this note have been copied from my previous progress note dated 08/23/2023. All the information has been reviewed carefully. Dear Dr. Hamlin here is an update on a follow up visit on male Trinity Peryr at the clinic September 13, 2023. Diagnosis: 1. T3, N2, M0 pancreatic cancer. Tumor is 8.1 cm, moderately differentiated adenocarcinoma, tumor invades duodenal wall, peripancreatic soft tissue. Margins were negative. Lymphovascular space invasion was present, perineural invasion was present. Metastatic disease in 7 of 27 lymph nodes. 2. NGS Tissue Based: KRAS [id number], EGFR amplified and RAC 1 Amplified , [...] covered stent. 4. CT 01/2022- Recurrence. 5. [place] and Abraxane 03/16/2022-05/11/2022 (Elected to stop chemo). 6. Resumed [place] and Abraxane 11/23/2022- 12/14/2022- Stopped due to poor tolerance. 7. Restarted [place] and Abraxane dose reduced, 2 week on [...] Range Status 09/13/2023 15.2 % Final Abs Vinton Date Value Ref Range Status 09/13/2023 0.59 [...] rising CA 19-9 and elected to restart [place] and Abraxane 11/23/2022. However, he had a very poor tolerance of therapy and has had declinind QOL. Therapy was held at that time 12/14/2022. Discussed the current status and rising CA 199 and options of no therapy, repeat chemo with dose modifications and or Xeloda. He wants to restart [place] and Abraxane, which he was on 02/01/2023 and dose reduced and have a 2 week on and 2 week off schedule. Slight delay due to Thanksgiving and URI, his neuropathy is worst and the Abraxane was stopped and continued [place]. CT 04/2023 wit progressive disease. I had [...] hesitate to contact Grace Bess MD at [phone]. Yordy Moncada APRN.[facility] Hematology/Medical Oncology [facility] CC: Giovanni Hamlin MD I spent a total of 30 minutes on the date of the service which included preparing to see the patient, [id number]-[id number] patient care, completing clinical documentation, obtaining and/or reviewing separately obtained history, performing a medically appropriate examination, counseling and educating the patient/family/caregiver, ordering medications, tests, or procedures, independently interpreting results (not separately reported), and communicating results to the patient/family/caregiver. documented in this encounter [facility] 08-23-2023 Note [facility] 08-23-2023 History of Present illness Narrative PATIENT NAME: Trinity Perry [facility] NO.: [id number] ATTENDING PHYSICIAN: Grace Bess MD DATE OF [...] lymph nodes. 2. NGS Tissue Based: KRAS [id number], EGFR amplified and RAC 1 Amplified , [...] covered stent 4. CT 01/2022- recurrence 5. [place] and Abraxane 03/16/2022-05/11/2022 ( elected to stop chemo) 6. Resumed [place] and Abraxane 11/23/2022- 12/14/2022- Stopped due to poor tolerance 7. Restarted [place] and Abraxane dose reduced, 2 week on [...] Range Status 08/23/2023 15.0 % Final Abs Vinton Date Value Ref Range Status 08/23/2023 0.72 [...] rising CA 19-9 and elected to restart [place] and Abraxane 11/23/2022. However, he had a very poor tolerance of therapy and has had declinind QOL. Therapy was held at that time 12/14/2022 Discussed the current status and rising CA 199 and options of no therapy, repeat chemo with dose modifications and or Xeloda. He wants to restart [place] and Abraxane, which he was on 02/01/2023 and dose reduced and have a 2 week on and 2 week off schedule. Slight delay due to Thanksgiving and URI, his neuropathy is worst and the Abraxane was stopped and continued [place]. CT 04/2023 wit progressive disease. I had [...] do not hesitate to contact me at [phone]. Grace Bess MD Hematology/Medical Oncology [facility] CC: Giovanni Hamlin MD I spent a total of 30 minutes on the date of the service which included preparing to see the patient, [id number] patient care, completing clinical documentation, obtaining and/or reviewing separately obtained history, performing a medically appropriate examination, counseling and educating the patient/family/caregiver, ordering medications, tests, or procedures, and independently interpreting results (not separately reported). documented in this encounter [facility] 08-21-2023 Miscellaneous Notes Patient coming in Monday01/03/24 for follow up treatment. Please add lab orders. Thanks. Christi Blum MA documented in this encounter [facility] 08-18-2023 History of Present illness Narrative [...] PATIENT PRESENTS WITH AN IMPLANTABLE OR ATTACHED FLOOR SCRUBBER: No RADIOLOGY DEPARTMENT: CT; Exam(s) Completed: Chest Abdomen Pelvis PERIPHERAL IV DATA: PORT 03/12/22 SIGNED BY: RT Janice(R) August 18, 2023 10:07 AM documented in this encounter [facility] 08-18-2023 Note [facility] 08-18-2023 Note [facility] 08-11-2023 Miscellaneous Notes Call placed to patient again, no answer on both numbers. Left detailed message on [facility] number regarding new updated appts. Ora [...] Pelayo documented in this encounter [facility] 08-09-2023 Miscellaneous Notes Pt called today [...] RN documented in this encounter [facility] 08-02-2023 Note [facility] 08-02-2023 History of Present illness Narrative PATIENT NAME: Trinity Perry [facility] NO.: [id number] ATTENDING PHYSICIAN: Grace Bess MD DATE OF [...] lymph nodes. 2. NGS Tissue Based: KRAS [id number], EGFR amplified and RAC 1 Amplified , [...] covered stent 4. CT 01/2022- recurrence 5. [place] and Abraxane 03/16/2022-05/11/2022 ( elected to stop chemo) 6. Resumed [place] and Abraxane 11/23/2022- 12/14/2022- Stopped due to poor tolerance 7. Restarted [place] and Abraxane dose reduced, 2 week on [...] Range Status 08/02/2023 8.9 % Final Abs Vinton Date Value Ref Range Status 08/02/2023 0.48 [...] rising CA 19-9 and elected to restart [place] and Abraxane 11/23/2022. However, he had a very poor tolerance of therapy and has had declinind QOL. Therapy was held at that time 12/14/2022 Discussed the current status and rising CA 199 and options of no therapy, repeat chemo with dose modifications and or Xeloda. He wants to restart [place] and Abraxane, which he was on 02/01/2023 and dose reduced and have a 2 week on and 2 week off schedule. Slight delay due to Thanksgiving and URI, his neuropathy is worst and the Abraxane was stopped and continued [place]. CT 04/2023 wit progressive disease. I had [...] do not hesitate to contact me at [phone]. Grace Bess MD Hematology/Medical Oncology [facility] CC: Giovanni Hamlin MD I spent a total of 30 minutes on the date of the service which included preparing to see the patient, wtin-[id number]-loyl patient care, completing clinical documentation, obtaining and/or reviewing separately obtained history, performing a medically appropriate examination, counseling and educating the patient/family/caregiver, ordering medications, tests, or procedures, and independently interpreting results (not separately reported). documented in this encounter [facility] 07-19-2023 Note [facility] 07-19-2023 History of Present illness Narrative Oncology [...] irinotecan, leucovorin, 5FU Previous Treatment(s): [facility] 12/04/2019, Co[place]emee/Abraxane Pt denies any chewing/swallowing issues, denies current [...] Dosing Weight: 71.5 kg Estimated kilocalorie needs: 8951-5907 kilocalories determined by 30-35 kcal/kg Estimated protein needs: 72-107 grams determined by 1.0-1.5 g/kg Dosing weight Estimated fluid needs: ~6953-0603 milliliters based on 1 mL per kcal [...] LD documented in this encounter [facility] 07-19-2023 Note [facility] 07-19-2023 History of Present illness Narrative PATIENT NAME: Trinity Perry [facility] NO.: [id number] ATTENDING PHYSICIAN: Grace Bess MD DATE OF [...] lymph nodes. 2. NGS Tissue Based: KRAS [id number], EGFR amplified and RAC 1 Amplified , [...] covered stent 4. CT 01/2022- Recurrence. 5. [place] and Abraxane 03/16/2022-05/11/2022 ( elected to stop chemo). 6. Resumed [place] and Abraxane 11/23/2022- 12/14/2022- Stopped due to poor tolerance 7. Restarted [place] and Abraxane dose reduced, 2 week on [...] Range Status 07/19/2023 7.7 % Final Abs Vinton Date Value Ref Range Status 07/19/2023 0.46 [...] rising CA 19-9 and elected to restart [place] and Abraxane 11/23/2022. However, he had a very poor tolerance of therapy and has had declinind QOL. Therapy was held at that time 12/14/2022. Discussed the current status and rising CA 199 and options of no therapy, repeat chemo with dose modifications and or Xeloda. He wants to restart [place] and Abraxane, which he was on 02/01/2023 and dose reduced and have a 2 week on and 2 week off schedule. Slight delay due to Thanksgiving and URI, his neuropathy is worst and the Abraxane was stopped and continued [place]. CT 04/2023 with progressive disease. We had [...] not hesitate to contact Dr. Bess at [phone]. Yordy Moncada APRN.[facility] Hematology/Medical Oncology [facility] CC: Giovanni Hamlin MD I spent a total of 30 minutes on the date of the service which included preparing to see the patient, nvjc-la-chbj patient care, completing clinical documentation, obtaining and/or reviewing separately obtained history, performing a medically appropriate examination, counseling and educating the patient/family/caregiver, ordering medications, tests, or procedures, independently interpreting results (not separately reported), and communicating results to the patient/family/caregiver. documented in this encounter [facility] 07-05-2023 Note [facility] 07-05-2023 History of Present illness Narrative PATIENT NAME: Trinity Perry [facility] NO.: [id number] ATTENDING PHYSICIAN: Grace Bess MD DATE OF [...] lymph nodes. 2. NGS Tissue Based: KRAS [id number], EGFR amplified and RAC 1 Amplified , [...] covered stent 4. CT 01/2022- Recurrence. 5. [place] and Abraxane 03/16/2022-05/11/2022 ( elected to stop chemo). 6. Resumed [place] and Abraxane 11/23/2022- 12/14/2022- Stopped due to poor tolerance 7. Restarted [place] and Abraxane dose reduced, 2 week on [...] polyneuropathy, without long-term current use of insulin ([facility]) 06/07/2023 Gastric outlet obstruction Obstructive [...] Range Status 07/05/2023 6.9 % Final Abs Vinton Date Value Ref Range Status 07/05/2023 0.41 [...] rising CA 19-9 and elected to restart [place] and Abraxane 11/23/2022. However, he had a very poor tolerance of therapy and has had declinind QOL. Therapy was held at that time 12/14/2022. Discussed the current status and rising CA 199 and options of no therapy, repeat chemo with dose modifications and or Xeloda. He wants to restart [place] and Abraxane, which he was on 02/01/2023 and dose reduced and have a 2 week on and 2 week off schedule. Slight delay due to Thanksgiving and URI, his neuropathy is worst and the Abraxane was stopped and continued [place]. CT 04/2023 with progressive disease. We had [...] not hesitate to contact Dr. Bess at [phone]. Yordy Moncada APRN.[facility] Hematology/Medical Oncology [facility] CC: Giovanni Hamlin MD I spent a total of 30 minutes on the date of the service which included preparing to see the patient, [id number] patient care, completing clinical documentation, obtaining and/or reviewing separately obtained history, performing a medically appropriate examination, counseling and educating the patient/family/caregiver, ordering medications, tests, or procedures, independently interpreting results (not separately reported), and communicating results to the patient/family/caregiver. documented in this encounter [facility] 06-23-2023 Miscellaneous Notes Pt's calls requesting tumor marker results. Notified her that they were not drawn at his visit on Monday, and are ordered for next time. Josephine Salomon RN documented in this encounter [facility] 06-21-2023 Note [facility] 06-21-2023 Note [facility] 06-07-2023 Note [facility] 06-07-2023 Note [facility] 06-07-2023 Note [facility] 05-24-2023 Note [facility] 05-18-2023 History of Present illness Narrative Radiology [...] port scanned 03/02/2022-NS documented in this encounter [facility] 05-18-2023 Note [facility] 05-18-2023 Note [facility] 05-12-2023 Note [facility] 05-08-2023 Telephone encounter Note Please order Cre for upcoming CT-pt on nephrotoxic chemo Thank You! Vaishali Marie RN [facility] 05-08-2023 Miscellaneous Notes Please order Cre for upcoming CT-pt on nephrotoxic chemo Thank You! Vaishali Marie RN documented in this encounter [facility] 05-05-2023 Note HNO ID: [id number] Author: Daja Carnes RN Service: ? 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 Daja Carnes RN [facility] 05-05-2023 History of Present illness Narrative It was confirmed with to hold abraxane today due to worsening neuropathy. Daja Carnes RN documented in this encounter [facility] 05-05-2023 Note [facility] 05-05-2023 History of Present illness Narrative PATIENT NAME: Trinity Perry [facility] NO.: [id number] ATTENDING PHYSICIAN: Grace Bess MD DATE OF [...] lymph nodes. 2. NGS Tissue Based: KRAS [id number], EGFR amplified and RAC 1 Amplified , [...] covered stent 4. CT 01/2022- recurrence 5. [place] and Abraxane 03/16/2022-05/11/2022 ( elected to stop chemo) 6. Resumed [place] and Abraxane 11/23/2022- 12/14/2022- Stopped due to poor tolerance 7. Restarted [place] and Abraxane dose reduced, 2 week on [...] Range Status 05/05/2023 7.7 % Final Abs Vinton Date Value Ref Range Status 05/05/2023 1.12 [...] rising CA 19-9 and elected to restart [place] and Abraxane 11/23/2022. However, he had a very poor tolerance of therapy and has had declinind QOL. Therapy was held at that time 12/14/2022 Discussed the current status and rising CA 199 and options of no therapy, repeat chemo with dose modifications and or Xeloda. He wants to restart [place] and Abraxane, which he was on 02/01/2023 [...] do not hesitate to contact me at [phone]. Grace Bess MD Hematology/Medical Oncology [facility] CC: Giovanni Hamlin MD I spent a total of 30 minutes on the date of the service which included preparing to see the patient, [id number] patient care, completing clinical documentation, obtaining and/or reviewing separately obtained history, performing a medically appropriate examination, counseling and educating the patient/family/caregiver, ordering medications, tests, or procedures, and independently interpreting results (not separately reported). documented in this encounter [facility] 04-07-2023 Miscellaneous Notes Pt notified of results. Josephine Salomon RN ----- Message from Grace Bess MD sent at 04/07/2023 9:10 AM EST ----- Please call with tumor marker. documented in this encounter [facility] 04-05-2023 Miscellaneous Notes Addended by: YORDY MONCADA on: 04/05/2023 03:25 PM Modules accepted: Orders documented in this encounter [facility] 04-05-2023 History of Present illness Narrative [facility] NO.: [id number] ATTENDING PHYSICIAN: Grace Bess MD DATE OF [...] lymph nodes. 2. NGS Tissue Based: KRAS [id number], EGFR amplified and RAC 1 Amplified , [...] covered stent. 4. CT 01/2022- Recurrence. 5. [place] and Abraxane 03/16/2022-05/11/2022 ( elected to stop chemo) 6. Resumed [place] and Abraxane 11/23/2022- 12/14/2022- Stopped due to poor tolerance 7. Restarted [place] and Abraxane dose reduced, 2 week on [...] Range Status 04/05/2023 2.0 % Final Abs Vinton Date Value Ref Range Status 04/05/2023 0.21 [...] rising CA 19-9 and elected to restart [place] and Abraxane 11/23/2022. However, he had a very poor tolerance of therapy and has had declined QOL. Therapy was held at that time 12/14/2022. CA 199 began to rise and options of no therapy, repeat chemo with dose modifications and/or Xeloda. He wanted to restart [place] and Abraxane, which he was on 02/01/2023 [...] chemotherapy and will monitor closely. Yordy Moncada APRN.[employer] CC: Giovanni Hamlin MD I spent a total of 30 minutes on the date of the service which included preparing to see the patient, yqqi-[id number] patient care, completing clinical documentation, obtaining and/or reviewing separately obtained history, performing a medically appropriate examination, counseling and educating the patient/family/caregiver, ordering medications, tests, or procedures, independently interpreting results (not separately reported), and communicating results to the patient/family/caregiver. documented in this encounter [facility] 04-04-2023 Miscellaneous Notes Pt notified of results. Josephine Salomon RN Please call with ca19-9 results documented in this encounter [facility] 03-30-2023 History of Present illness Narrative PATIENT NAME: Trinity Gupta [facility] NO.: [id number] ATTENDING PHYSICIAN: Grace Bess MD DATE OF [...] lymph nodes. 2. NGS Tissue Based: KRAS [id number], EGFR amplified and RAC 1 Amplified , [...] covered stent 4. CT 01/2022- recurrence 5. [place] and Abraxane 03/16/2022-05/11/2022 ( elected to stop chemo) 6. Resumed [place] and Abraxane 11/23/2022- 12/14/2022- Stopped due to poor tolerance 7. Restarted [place] and Abraxane dose reduced, 2 week on [...] Range Status 03/30/2023 10.4 % Final Abs Vinton Date Value Ref Range Status 03/30/2023 0.82 [...] rising CA 19-9 and elected to restart [place] and Abraxane 11/23/2022. However, he had a very poor tolerance of therapy and has had declined QOL. Therapy was held at that time 12/14/2022 CA 199 began to rise and options of no therapy, repeat chemo with dose modifications and/or Xeloda. He wanted to restart [place] and Abraxane, which he was on 02/01/2023 [...] MD documented in this encounter [facility] 03-08-2023 History of Present illness Narrative PATIENT NAME: Trinity Perry [facility] NO.: [id number] ATTENDING PHYSICIAN: Grace Bess MD DATE OF [...] lymph nodes. 2. NGS Tissue Based: KRAS [id number], EGFR amplified and RAC 1 Amplified , [...] covered stent 4. CT 01/2022- recurrence 5. [place] and Abraxane 03/16/2022-05/11/2022 ( elected to stop chemo) 6. Resumed [place] and Abraxane 11/23/2022- 12/14/2022- Stopped due to poor tolerance 7. Restarted [place] and Abraxane dose reduced, 2 week on [...] Range Status 03/01/2023 11.6 % Final Abs Vinton Date Value Ref Range Status 03/01/2023 0.94 [...] rising CA 19-9 and elected to restart [place] and Abraxane 11/23/2022. However, he had a very poor tolerance of therapy and has had declinind QOL. Therapy was held at that time 12/14/2022 Discussed the current status and rising CA 199 and options of no therapy, repeat chemo with dose modifications and or Xeloda. He wants to restart [place] and Abraxane, which he was on 02/01/2023 [...] do not hesitate to contact me at [phone]. Grace Bess MD Hematology/Medical Oncology [facility] CC: Giovanni Hamlin MD I spent a total of 30 minutes on the date of the service which included preparing to see the patient, [id number] patient care, completing clinical documentation, obtaining and/or reviewing separately obtained history, performing a medically appropriate examination, counseling and educating the patient/family/caregiver, ordering medications, tests, or procedures, and independently interpreting results (not separately reported). documented in this encounter [facility] 03-02-2023 Miscellaneous Notes Pt notified of results and is agreeable to this. Josephine Salomon RN ----- Message from Grace Bess MD sent at 03/02/2023 1:57 PM EDT ----- Tell him that his Tumor marker is stable and if he is ok we will continue the chemo for now documented in this encounter [facility] 02-08-2023 History of Present illness Narrative Dex discontinued from tx plan per due to elevated blood sugars. Florinda Rincon RN documented in this encounter [facility] 02-08-2023 History of Present illness Narrative PATIENT NAME: Trinity Gupta [facility] NO.: [id number] ATTENDING PHYSICIAN: Grace Bess MD DATE OF [...] lymph nodes. 2. NGS Tissue Based: KRAS [id number], EGFR amplified and RAC 1 Amplified , [...] stent . 4. CT 01/2022- Recurrence. 5. [place] and Abraxane 03/16/2022-05/11/2022. (Elected to stop chemo) 6. Resumed [place] and Abraxane 11/23/2022- 12/14/2022- Stopped due to poor tolerance. 7. Restarted [place] and Abraxane dose reduced, 2 week on [...] Range Status 02/08/2023 4.3 % Final Abs Vinton Date Value Ref Range Status 02/08/2023 0.22 [...] rising CA 19-9 and elected to restart [place] and Abraxane 11/23/2022. However, he had a very poor tolerance of therapy and has had declinind QOL. Therapy was held at that time 12/14/2022. Restarted [place] and Abraxane 02/01/2023. Will continue with dose [...] hesitate to contact Grace Bess MD at [phone]. Yordy Moncada APRN.CNP Hematology/Medical Oncology [facility] CC: Giovanni Hamlin MD I spent a total of 30 minutes on the date of the service which included preparing to see the patient, vjjr-[id number] patient care, completing clinical documentation, obtaining and/or reviewing separately obtained history, performing a medically appropriate examination, counseling and educating the patient/family/caregiver, ordering medications, tests, or procedures, independently interpreting results (not separately reported), and communicating results to the patient/family/caregiver. documented in this encounter [facility] 02-01-2023 Miscellaneous Notes He likely has [...] RN documented in this encounter [facility] 02-01-2023 History of Present illness Narrative PATIENT NAME: Trinity Perry [facility] NO.: [id number] ATTENDING PHYSICIAN: Grace Bess MD DATE OF [...] lymph nodes. 2. NGS Tissue Based: KRAS [id number], EGFR amplified and RAC 1 Amplified , [...] covered stent 4. CT 01/2022- recurrence 5. [place] and Abraxane 03/16/2022-05/11/2022 ( elected to stop chemo) 6. Resumed [place] and Abraxane 11/23/2022- 12/14/2022- Stopped due to poor tolerance 7. Restarted [place] and Abraxane dose reduced, 2 week on [...] Range Status 02/01/2023 6.1 % Final Abs Vinton Date Value Ref Range Status 02/01/2023 0.70 [...] rising CA 19-9 and elected to restart [place] and Abraxane 11/23/2022. However, he had a very poor tolerance of therapy and has had declinind QOL. Therapy was held at that time 12/14/2022 Discussed the current status and rising CA 199 and options of no therapy, repeat chemo with dose modifications and Xeloda. He wants to restart [place] and Abraxane. Will dose reduce and have a 2 week on and 2 week off schedule Continue nutrition follow up Anemia- Improved off chemo DM- Follow endocrine See back next week for day 8 Thank you for the kind referral. If there are any questions and or concerns please do not hesitate to contact me at [phone]. Grace Bess MD Hematology/Medical Oncology [facility] CC: Giovanni Hamlin MD I spent a total of 30 minutes on the date of the service which included preparing to see the patient, jkoq-wu-jgky patient care, completing clinical documentation, obtaining and/or reviewing separately obtained history, performing a medically appropriate examination, counseling and educating the patient/family/caregiver, ordering medications, tests, or procedures, and independently interpreting results (not separately reported). documented in this encounter [facility] 01-04-2023 History of Present illness Narrative PATIENT NAME: Trinity Perry [facility] NO.: [id number] ATTENDING PHYSICIAN: Grace Bess MD DATE OF [...] lymph nodes. 2. NGS Tissue Based: KRAS [id number], EGFR amplified and RAC 1 Amplified , [...] covered stent 4. CT 01/2022- recurrence 5. [place] and Abraxane 03/16/2022-05/11/2022 ( elected to stop chemo) 6. Resumed [place] and Abraxane 11/23/2022- 12/14/2022- Stopped due to [...] Range Status 01/04/2023 8.8 % Final Abs Vinton Date Value Ref Range Status 01/04/2023 0.87 [...] rising CA 19-9 and elected to restart [place] and Abraxane 11/23/2022. However, he has very [...] do not hesitate to contact me at [phone]. Grace Bess MD Hematology/Medical Oncology [facility] CC: Giovnani Hamlin MD I spent a total of 30 minutes on the date of the service which included preparing to see the patient, peko-vq-[id number] patient care, completing clinical documentation, obtaining and/or reviewing separately obtained history, performing a medically appropriate examination, counseling and educating the patient/family/caregiver, ordering medications, tests, or procedures, and independently interpreting results (not separately reported). documented in this encounter [facility] 12-21-2022 Miscellaneous Notes Pt's notified of results and that script was called into pharmacy. They will pick this up tonight. Josephine Salomon RN Call placed to pt's home phone, no answer, voicemail has not been set up yet. Call placed to EC and message left requesting a call back to our office. Josephine Salomno RN Thank you. Please call patient and explain. Since he is having increased phlegm production and mild cough, I will send antibiotic to his local pharmacy as well. Greta Wetzel PA-C Call received from riley Choi at [facility] stating pt's CT is negative for PE. Shows subtle nodular tree-in-bud opacities predominantly in the right upper lobe concerning for infectious bronchiolitis. Josephine Salomon RN documented in this encounter [facility] 12-21-2022 History of Present illness Narrative Left sutures to forehead removed as ordered per Jacoby Wetzel PA-C, patient tolerated well, S/S of infections reinforced patient and spouse verbalizes understanding Lashaun Riojas RN documented in this encounter [facility] 12-21-2022 History of Present illness Narrative PATIENT NAME: Trinity Perry [facility] NO.: [id number] ATTENDING PHYSICIAN: Grace Bess MD DATE OF [...] lymph nodes. 2. NGS Tissue Based: KRAS [id number], EGFR amplified and RAC 1 Amplified , [...] covered stent 4. CT 01/2022- recurrence 5. [place] and Abraxane 03/16/2022-05/11/2022 ( elected to stop chemo) 6. Resumed [place] and Abraxane 11/23/2022 HPI: Alfred returns for day 8 of treatment. He complains of weakness, fatigue and LINDSEY. He feel while at [facility] 12/15/22 and went to [facility] ER. Ct head and cervical spine [...] Range Status 12/21/2022 8.5 % Final Abs Vinton Date Value Ref Range Status 12/21/2022 0.32 [...] rising CA 19-9 and elected to restart [place] and Abraxane 11/23/2022. [place] dose was decreased with cycle 2 day [...] MD documented in this encounter [facility] 12-15-2022 Hospital Discharge instructions Additional Instructions Tetanus was updated today in emergency department Sutures should be removed in 5 to 7 days Apply ice to affected area Neosporin daily Sunscreen after healed to reduce scarring For signs of infection redness, swelling, purulent drainage follow-up immediately Follow-up with your doctor for recheck in the next 3 to 5 days [facility] Work Phone: 12-05-2022 History of Present illness Narrative PATIENT NAME: Trinity Perry [facility] NO.: [id number] ATTENDING PHYSICIAN: Grace Bess MD DATE OF [...] lymph nodes. 2. NGS Tissue Based: KRAS [id number], EGFR amplified and RAC 1 Amplified , [...] covered stent 4. CT 01/2022- recurrence 5. [place] and Abraxane 03/16/2022-05/11/2022 ( elected to stop chemo) 6. Resumed [place] and Abraxane 11/23/2022 HPI: Trinity returns for [...] Range Status 11/30/2022 4.3 % Final Abs Vinton Date Value Ref Range Status 11/30/2022 0.26 [...] rising CA 19-9 and elected to restart [place] and Abraxane 11/23/2022. Tolerating well, however, is having significant anemia, likely from chemotherapy. Will type and cross and transfuse 1 unit of PRBCs. He will return in 1 week for the next cycle of chemotherapy, and will like need dose reductions. Continue nutrition follow up DM- Follow endocrine Greta Wetzel PA-C CC: Giovanni Hamlin MD documented in this encounter [facility] 11-30-2022 History of Present illness Narrative PATIENT NAME: Trinity Perry [facility] NO.: [id number] ATTENDING PHYSICIAN: Grace Bess MD DATE OF [...] lymph nodes. 2. NGS Tissue Based: KRAS [id number], EGFR amplified and RAC 1 Amplified , [...] covered stent 4. CT 01/2022- recurrence 5. [place] and Abraxane 03/16/2022-05/11/2022 ( elected to stop chemo) 6. Resumed [place] and Abraxane 11/23/2022 HPI: Trinity Perry is [...] Range Status 11/30/2022 4.3 % Final Abs Vinton Date Value Ref Range Status 11/30/2022 0.26 [...] rising CA 19-9 and elected to restart [place] and Abraxane 11/23/2022 Continue nutrition follow up Anemia- Will repeat CBC next week as he is more anemic with the start of the chemo DM- Follow endocrine RTC next week for cbc check Thank you for the kind referral. If there are any questions and or concerns please do not hesitate to contact me at [phone]. Grace Bess MD Hematology/Medical Oncology [facility] CC: Giovanni Hamlin MD I spent a total of 30 minutes on the date of the service which included preparing to see the patient, [id number] patient care, completing clinical documentation, obtaining and/or reviewing separately obtained history, performing a medically appropriate examination, counseling and educating the patient/family/caregiver, ordering medications, tests, or procedures, and independently interpreting results (not separately reported). documented in this encounter [facility] 11-28-[address] Keyes [...] you documented in this encounter [facility] 11-23-2022 History of Present illness Narrative PATIENT NAME: Trinity Gupta [facility] NO.: [id number] ATTENDING PHYSICIAN: Grace Bess MD DATE OF [...] lymph nodes. 2. NGS Tissue Based: KRAS [id number], EGFR amplified and RAC 1 Amplified , [...] covered stent 4. CT 01/2022- recurrence 5. 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 Today he complains of complete exhaustion . [...] Range Status 11/23/2022 7.1 % Final Abs Vinton Date Value Ref Range Status 11/23/2022 0.77 [...] MD documented in this encounter [facility] 11-10-2022 Miscellaneous Notes Spoke with pt's [...] RN documented in this encounter [facility] 11-10-2022 History of Present illness Narrative PATIENT NAME: Trinity Perry [facility] NO.: [id number] ATTENDING PHYSICIAN: Grace Bess MD DATE OF [...] lymph nodes. 2. NGS Tissue Based: KRAS [id number], EGFR amplified and RAC 1 Amplified , [...] covered stent 4. CT 01/2022- recurrence 5. [place] and Abraxane 03/16/2022-05/11/2022 ( elected to stop [...] Range Status 09/29/2022 8.0 % Final Abs Vinton Date Value Ref Range Status 09/29/2022 0.68 [...] resuming theroay again and they agreed Restart [place] and Abraxane again next week. Continue nutrition follow up Anemia- Monitor- Improved Resume chemo next week Thank you for the kind referral. If there are any questions and or concerns please do not hesitate to contact me at [phone]. Grace Bess MD Hematology/Medical Oncology [facility] CC: Giovanni Hamlin MD I spent a total of 30 minutes on the date of the service which included preparing to see the patient, [id number]-[id number] patient care, completing clinical documentation, obtaining and/or reviewing separately obtained history, performing a medically appropriate examination, counseling and educating the patient/family/caregiver, ordering medications, tests, or procedures, and independently interpreting results (not separately reported). documented in this encounter [facility] 11-07-2022 Miscellaneous Notes Pt notified of results. Josephine Salomon RN ----- Message from Grace Bess MD sent at 11/06/2022 11:30 AM EDT ----- Call with stable CT scan and no evidence of progressive disease documented in this encounter [facility] 11-03-2022 History of Present illness Narrative Summary: IRB# [id number] Informed Consent CASE [id number] (IRB [id number]): Tissue [...] Nurse documented in this encounter [facility] 11-03-2022 History of Present illness Narrative [...] 2022 10:36 AM documented in this encounter [facility] 09-29-2022 History of Present illness Narrative PATIENT NAME: Trinity Perry [facility] NO.: [id number] ATTENDING PHYSICIAN: Grace Bess MD DATE OF [...] lymph nodes. 2. NGS Tissue Based: KRAS [id number], EGFR amplified and RAC 1 Amplified , [...] covered stent 4. CT 01/2022- recurrence 5. [place] and Abraxane 03/16/2022-05/11/2022 ( elected to stop [...] Range Status 08/02/2022 8.6 % Final Abs Vinton Date Value Ref Range Status 08/02/2022 0.81 [...] do not hesitate to contact me at [phone]. Grace Bess MD Hematology/Medical Oncology [facility] CC: Giovanni Hamlin MD I spent a total of 30 minutes on the date of the service which included preparing to see the patient, cjmu-ys-boja patient care, completing clinical documentation, obtaining and/or reviewing separately obtained history, performing a medically appropriate examination, counseling and educating the patient/family/caregiver, ordering medications, tests, or procedures, and independently interpreting results (not separately reported). documented in this encounter [facility] 08-02-2022 History of Present illness Narrative PATIENT NAME: Trinity Perry [facility] NO.: [id number] ATTENDING PHYSICIAN: Grace Bess MD DATE OF [...] lymph nodes. 2. NGS Tissue Based: KRAS [id number], EGFR amplified and RAC 1 Amplified , [...] covered stent 4. CT 01/2022- recurrence 5. [place] and Abraxane 03/16/2022-05/11/2022 ( elected to stop [...] Range Status 08/02/2022 8.6 % Final Abs Vinton Date Value Ref Range Status 08/02/2022 0.81 [...] do not hesitate to contact me at [phone]. Grace Bess MD Hematology/Medical Oncology [facility] CC: Giovanni Hamlin MD I spent a total of 30 minutes on the date of the service which included preparing to see the patient, gyxo-st-ywqr patient care, completing clinical documentation, obtaining and/or reviewing separately obtained history, performing a medically appropriate examination, counseling and educating the patient/family/caregiver, ordering medications, tests, or procedures, and independently interpreting results (not separately reported). documented in this encounter [facility] 07-27-2022 History of Present illness Narrative [...] TIME: 11:36 AM documented in this encounter [facility] 06-29-2022 History of Present illness Narrative PATIENT NAME: Trinity Perry [facility] NO.: [id number] ATTENDING PHYSICIAN: Grace Bess MD DATE OF [...] lymph nodes. 2. NGS Tissue Based: KRAS [id number], EGFR amplified and RAC 1 Amplified , [...] covered stent 4. CT 01/2022- recurrence 5. [place] and Abraxane 03/16/2022 HPI: Trinity Perry is [...] 06/29/2022 2.15 1.00 - 4.00 k/uL Final Vinton% Date Value Ref Range Status 06/29/2022 10.2 % Final Abs Vinton Date Value Ref Range Status 06/29/2022 1.05 [...] do not hesitate to contact me at [phone]. Grace Bess MD Hematology/Medical Oncology [facility] CC: Giovanni Hamlin MD I spent a total of 30 minutes on the date of the service which included preparing to see the patient, njnv-kc-jgwe patient care, completing clinical documentation, obtaining and/or reviewing separately obtained history, performing a medically appropriate examination, counseling and educating the patient/family/caregiver, ordering medications, tests, or procedures, and independently interpreting results (not separately reported). documented in this encounter [facility] 05-25-2022 History of Present illness Narrative [...] port scanned 03/02/2022-NS documented in this encounter [facility] 05-11-2022 Miscellaneous Notes Addended by: GRACE BESS on: 05/11/2022 09:59 AM Modules accepted: Orders documented in this encounter [facility] 05-11-2022 History of Present illness Narrative PATIENT NAME: Trinity Perry [facility] NO.: [id number] ATTENDING PHYSICIAN: Grace Bess MD DATE OF [...] lymph nodes. 2. NGS Tissue Based: KRAS [id number], EGFR amplified and RAC 1 Amplified , [...] covered stent 4. CT 01/2022- recurrence 5. [place] and Abraxane 03/16/2022 HPI: Trinity Perry is [...] 05/11/2022 1.49 1.00 - 4.00 k/uL Final Vinton% Date Value Ref Range Status 05/11/2022 12.7 % Final Abs Vinton Date Value Ref Range Status 05/11/2022 0.79 [...] high risk. Here for cycle 4 and [place] and Abraxane and will skip next week and plan imaging and see back in 3 weeks Continue nutrition follow up Anemia- Monitor. Thank you for the kind referral. If there are any questions and or concerns please do not hesitate to contact me at [phone]. Grace Bess MD Hematology/Medical Oncology [facility] CC: Giovanni Hamlin MD I spent a total of 30 minutes on the date of the service which included preparing to see the patient, [id number]-tb-ccii patient care, completing clinical documentation, obtaining and/or reviewing separately obtained history, performing a medically appropriate examination, counseling and educating the patient/family/caregiver, ordering medications, tests, or procedures, and independently interpreting results (not separately reported). documented in this encounter [facility] 04-27-2022 History of Present illness Narrative PATIENT NAME: Trinity Perry [facility] NO.: [id number] ATTENDING PHYSICIAN: Grace Bess MD DATE OF [...] lymph nodes. 2. NGS Tissue Based: KRAS [id number], EGFR amplified and RAC 1 Amplified , [...] hesitate to contact Grace Bess MD at [phone]. Yordy Moncada APRN.[facility] Hematology/Medical Oncology [facility] CC: Giovanni Hamlin MD documented in this encounter [facility] 04-20-2022 Miscellaneous Notes Call received from [facility] needing clarification on gabapentin script. Script is written to be taken daily for a quantity of 30, but states for 14 days on the script. Discussed with Dr Bess and he would like this for a full 30 days. Orders given to pharmacist without difficulty. Josephine Salomon RN documented in this encounter [facility] 04-06-2022 History of Present illness Narrative PATIENT NAME: Trinity Perry [facility] NO.: [id number] ATTENDING PHYSICIAN: Grace Bess MD DATE OF [...] 03/30/2022 1.48 1.00 - 4.00 k/uL Final Vinton% Date Value Ref Range Status 03/30/2022 8.7 % Final Abs [place]inton Date Value Ref Range Status 03/30/2022 0.56 [...] very high risk. He was started on Co[place]ee and abraxane 03/09/2022 with good tolerance so [...] MD documented in this encounter [facility] 04-05-2022 Miscellaneous Notes Pt has reviewed his results on my chart Josephine Salomon RN ----- Message from Greta Wetzel PA-C sent at 03/31/2022 10:46 AM EST ----- Please call with [id number] documented in this encounter [facility] 03-30-2022 Miscellaneous Notes Call received from Candy, pharmacist at [facility], regarding gabapentin script. Discussed with Greta who states pt will be taking it for 30 days now because it's working well. Pharmacist notified of this and she will remove the portion of the sig that says for 14 days. Josephine Salomon RN documented in this encounter [facility] 03-30-2022 History of Present illness Narrative PATIENT NAME: Trinity Perry [facility] NO.: [id number] ATTENDING PHYSICIAN: Grace Bess MD DATE OF [...] 03/30/2022 1.48 1.00 - 4.00 k/uL Final Vinton% Date Value Ref Range Status 03/30/2022 8.7 % Final Abs Vinton Date Value Ref Range Status 03/30/2022 0.56 [...] very high risk. He was started on Co[place] and abraxane 03/09/2022 with good tolerance so far. Labs reviewed and stable. Proceed with cycle 2 day 1 today and return in 1 week for day 8. 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 Stable today, monitor Guardant 360 and tissue based NGS- still pending Medical Cancer genetics- germline testing negative Continue nutrition follow up Greta Wetzel PA-C CC: Giovanni Hamlin MD documented in this encounter [facility] 03-28-2022 Miscellaneous Notes Hitesh Brady Results left on patient voicemail. Trinity Perry's Multi-Cancer panel plus preliminary evidence pancreatic cancer and pancreatitis genes through [employer] was negative for a pathogenic variant. Please see Hurricane Party message for further discussion. Jose Antonio Emerson MS, [facility] Licensed, Certified Genetic Counselor documented in this encounter [facility] 03-17-2022 Miscellaneous Notes Pt's notified of negative stool results. Josephine Salomon RN documented in this encounter [facility] 03-16-2022 History of Present illness Narrative [facility] Consultation Note Genetic Counselor: Jose Antonio Emersno MS, [facility] [place] Patient: Trinity Perry Patient Name and confirmed at initiation of visit. Appointment occurred via audiovisual communication through Digital Signal Virtual Visit. HIGH LEVEL SUMMARY: The patient's [...] appropriate standard National Comprehensive Cancer Network and [place] [employer] guidelines, with consideration of their [...] PALB2, PDGFRA, PHOX2B, PMS2, POLD1, POLE, POT1, YJSFQ0V, PTCH1, PTEN, RAD50, RAD51C, RAD51D, RB1, RECQL4, RET, RUNX1, SDHA, SDHAF2, SDHB, SDHC, SDHD, SMAD4, SMARCA4, SMARCB1, SMARCE1, STK11, SUFU, TERC, TERT, BUIN845, TP53, TSC1, TSC2, VHL, WRN, and WT1. [...] greater than 50% of which was spent [id number] counseling. This plan is being carried out under the oversight of Dr. Marina Aaron. This note will also be sent to the referring provider via the electronic medical record. Jose Antonio Emerson MS, [facility] [place] Licensed, Certified Genetic Counselor EPIC CC: Dr. Grace Aaron documented in this encounter [facility] 03-16-2022 History of Present illness Narrative Pt c/o neuropathy becoming more aggravating. Bilateral hands up to forearms. This is not new since starting treatment. This was discussed with Akshat Prakash at treatment chairside and he will be given a trial of neurontin to take prior to bedtime. No change in doses required. documented in this encounter [facility] 03-16-2022 Miscellaneous Notes Addended by: GRETA WETZEL on: 03/16/2022 11:21 AM Modules accepted: Orders documented in this encounter [facility] 03-16-2022 History of Present illness Narrative [...] LD documented in this encounter [facility] 03-16-2022 Nurse Note Patient states that he has numbness in both hands and arms, he thinks it may be arthritits. Stomach is also queezy . He does states he feels short of breath, also has had some bleeding with brushing teeth and blowing nose. Janet Dotson MA documented in this encounter [facility] 03-16-2022 History of Present illness Narrative PATIENT NAME: Trinity Perry [facility] NO.: [id number] ATTENDING PHYSICIAN: Grace Bess MD DATE OF [...] 03/16/2022 1.38 1.00 - 4.00 k/uL Final Vinton% Date Value Ref Range Status 03/16/2022 7.7 % Final Abs Vinton Date Value Ref Range Status 03/16/2022 0.28 [...] very high risk. He was started on Co[place]emee and abraxane 03/09/2022 with good tolerance so [...] in 2 weeks. 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 [...] RN documented in this encounter [facility] 03-09-2022 History of Present illness Narrative [...] daughter: 1 step-daughter and 1 step son healthcare science specialist arrangements needed: Na Grandchild(sherman): 3 Home Health Provider: No Community Services: No Candy Identified: No Amish/Spirituality: Spiritual Are these practices or beliefs that may affect or influence treatment? Unknown EMPLOYMENT/FINANCIAL/HEALTH INSURANCE: Employment: Retired Income source: Social Security Insurance: Medicare with co-insurance Prescription coverage: Yes Is the patient appropriate for referral to [facility] COBRA Assistance program? No Financial Distress: No Gallagher: No FOOD INSECURITY Within the past year, [...] EPIC: No Health Care Durable Power of Waiter/Waitress Tourist Class: Yes Scanned into EPIC: No Guardianship: NA [...] male with pancreatic cancer. Patient lives in [place], [place] with his Brittni Connor . Patient [...] in: DAVE Santos documented in this encounter [facility] 03-09-2022 Miscellaneous Notes Call received from pt's stating they are at [facility] in [place] waiting for pt's nausea medications. Call placed to our pharmacy and scripts will be transferred to [facility] in [place] shortly. Josephine Salomon RN documented in this encounter [facility] 03-09-2022 Miscellaneous Notes Patient assessed today. [...] cup from daughter (nurse in oncology in [place]) and will refrigerate specimen until his appointment [...] RN documented in this encounter [facility] 03-09-2022 Miscellaneous Notes 1st report of [...] call. documented in this encounter [facility] 03-09-2022 History of Present illness Narrative Oncology Nutrition Therapy Initial Assessment RECOMMENDED MALNUTRITION DIAGNOSIS: NO MALNUTRITION IDENTIFIED Nutrition Diagnosis: Food and Nutrition related knowledge deficit related to lack of prior nutrition-related education as evidenced by verbalizes inaccurate or incomplete information OR no prior knowledge of need for [id number] related recommendations Nutrition Intervention: -aim for small [...] 1.0-1.3 g/kg Dosing weight Estimated fluid needs: ~1748-3959 milliliters based on 1 mL per kcal [...] LD documented in this encounter [facility] 03-09-2022 History of Present illness Narrative PATIENT NAME: Trinity Perry [facility] NO.: [id number] ATTENDING PHYSICIAN: Grace Bess MD DATE OF [...] 03/07/2022 1.76 1.00 - 4.00 k/uL Final Vinton% Date Value Ref Range Status 03/07/2022 6.4 % Final Abs Vinton Date Value Ref Range Status 03/07/2022 0.69 [...] very high risk. Patient here to start Cooleemee and Abraxane. Discussed AE again and he wishes to proceed. Guardant 360 and tissue based NGS- pending Medical Cancer genetics- Appontment pending Continue nutrition follow up See back in 1 week for day 8 Thank you for the kind referral. If there are any questions and or concerns please do not hesitate to contact me at [phone]. Grace Bess MD Hematology/Medical Oncology [facility] CC: Giovanni Hamlin MD I spent a total of 30 minutes on the date of the service which included preparing to see the patient, blja-te-hpis patient care, completing clinical documentation, obtaining and/or reviewing separately obtained history, performing a medically appropriate examination, counseling and educating the patient/family/caregiver, ordering medications, tests, or procedures, and independently interpreting results (not separately reported). documented in this encounter [facility] 03-07-2022 History of Present illness Narrative [...] RN documented in this encounter [facility] 03-07-2022 History of Present illness Narrative [...] port scanned 03/02/2022-NS documented in this encounter [facility] 03-04-2022 Miscellaneous Notes Pt will be in for education Monday. Please sign pending antiemetics for gem/abraxane. Thanks Josephine Salomon RN documented in this encounter [facility] 02-25-2022 Miscellaneous Notes You are scheduled for a Mediport Placement, On 03/02/2022. You are to arrive at 12:30 pm and Report to [facility] for Sedation Cases: [facility]: Enter through [facility] entrance. Proceed [...] are not done at a [facility] facility. . Executive Staff Assistant/Transportation: How will you be arriving for your procedure? Private car. You will need a responsible adult to accompany you to and from the procedure. Your bulk delivery driver is required to stay with you until you are taken into the procedure room. If you have any questions please call [phone] documented in this encounter [facility] 02-22-2022 Miscellaneous Notes Patient's appointments have [...] RN documented in this encounter [facility] 02-22-2022 Miscellaneous Notes Pt saw Dr Bess this morning and has several questions at checkout regarding treatment. Questions answered and reassurance given. Josephine Salomon RN documented in this encounter [facility] 02-22-2022 History of Present illness Narrative PATIENT NAME: Trinity Perry [facility] NO.: [id number] ATTENDING PHYSICIAN: Grace Bess MD DATE OF [...] 0.55 (L) 1.00 - 4.00 k/uL Final Vinton% Date Value Ref Range Status 02/05/2021 4.9 % Final Abs Vinton Date Value Ref Range Status 02/05/2021 1.27 [...] need systemic therapy at this time. Discussed Cooleemee and Abraxane based on the IMPACT trial and also the toxicity, Refer to Port placement Guardant 360 and tissue based NGS Refer to Medical Cancer genetics Refer to Nutrition Chemo teach Start therapy in 2 weeks Thank you for the kind referral. If there are any questions and or concerns please do not hesitate to contact me at [phone]. Grace Bess MD Hematology/Medical Oncology [facility] CC: Giovanni Hamlin MD I spent a total of 55 minutes on the date of the service which included preparing to see the patient, [id number] patient care, completing clinical documentation, obtaining and/or reviewing separately obtained history, performing a medically appropriate examination, counseling and educating the patient/family/caregiver, ordering medications, tests, or procedures, and independently interpreting results (not separately reported). documented in this encounter [facility] 02-22-2022 Nurse Note Patient states that [...] MA documented in this encounter [facility] 02-18-2022 History of Present illness Narrative [...] MD documented in this encounter [facility] 02-15-2022 History of Present illness Narrative [...] 2022 11:34 AM documented in this encounter [facility] 02-10-[address] Pancreas scheduled [...] come before the winter months. Please call [phone]. documented in this encounter [facility] 10-22-2021 Nurse Note Patient requesting to [...] None documented in this encounter [facility] 08-10-[address] 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 Is there any issue with pt having xray? Ph. [phone] Please Advise Sahra Campos) Clerk Of Works II DDSI documented in this encounter [facility] 03-23-2020 Note [id number] [facility] 03-09-2020 History of Past i llness Narrative Problem Noted Date Resolved Date Sepsis 03/09/2020 03/13/2020 Obesity, Class II, BMI 35-39.9 12/06/2019 1 07/09/2019 documented as of this encounter (statuses as of 08/10/2021) [facility] History of Past illness Narrative* Problem Noted Date Resolved Date Sepsis 03/09/2020 03/13/2020 Obesity, Class II, BMI 35-39.9 12/06/2019 1 07/09/2019 documented as of this encounter (statuses as of 10/23/2021) [facility] History of Past illness Narrative* Problem Noted Date Resolved Date Sepsis 03/09/2020 03/13/2020 Obesity, Class II, BMI 35-39.9 12/06/2019 1 07/09/2019 documented as of this encounter (statuses as of 02/08/2022) [facility] History of Past illness Narrative* Problem Noted Date Resolved Date Sepsis 03/09/2020 03/13/2020 Obesity, Class II, BMI 35-39.9 12/06/2019 1 07/09/2019 documented as of this encounter (statuses as of 02/10/2022) [facility] History of Past illness Narrative* Problem Noted Date Resolved Date Sepsis 03/09/2020 03/13/2020 Obesity, Class II, BMI 35-39.9 12/06/2019 1 07/09/2019 documented as of this encounter (statuses as of 02/18/2022) [facility] History of Past illness Narrative* Problem Noted Date Resolved Date Sepsis 03/09/2020 03/13/2020 Obesity, Class II, BMI 35-39.9 12/06/2019 1 07/09/2019 documented as of this encounter (statuses as of 02/22/2022) [facility] History of Past illness Narrative* Problem Noted Date Resolved Date Sepsis 03/09/2020 03/13/2020 Obesity, Class II, BMI 35-39.9 12/06/2019 1 07/09/2019 documented as of this encounter (statuses as of 02/23/2022) [facility] History of Past illness Narrative* Problem Noted Date Resolved Date Sepsis 03/09/2020 03/13/2020 Obesity, Class II, BMI 35-39.9 12/06/2019 1 07/09/2019 documented as of this encounter (statuses as of 02/25/2022) [facility] History of Past illness Narrative* Problem Noted Date Resolved Date Sepsis 03/09/2020 03/13/2020 Obesity, Class II, BMI 35-39.9 12/06/2019 1 07/09/2019 documented as of this encounter (statuses as of 02/28/2022) [facility] History of Past illness Narrative* Problem Noted Date Resolved Date Sepsis 03/09/2020 03/13/2020 Obesity, Class II, BMI 35-39.9 12/06/2019 1 07/09/2019 documented as of this encounter (statuses as of 03/07/2022) [facility] History of Past illness Narrative* Problem Noted Date Resolved Date Sepsis 03/09/2020 03/13/2020 Obesity, Class II, BMI 35-39.9 12/06/2019 1 07/09/2019 documented as of this encounter (statuses as of 03/07/2022) [facility] History of Past illness Narrative* Problem Noted Date Resolved Date Sepsis 03/09/2020 03/13/2020 Obesity, Class II, BMI 35-39.9 12/06/2019 1 07/09/2019 documented as of this encounter (statuses as of 03/09/2022) [facility] History of Past illness Narrative* Problem Noted Date Resolved Date Sepsis 03/09/2020 03/13/2020 Obesity, Class II, BMI 35-39.9 12/06/2019 1 07/09/2019 documented as of this encounter (statuses as of 03/09/2022) [facility] History of Past illness Narrative* Problem Noted Date Resolved Date Sepsis 03/09/2020 03/13/2020 Obesity, Class II, BMI 35-39.9 12/06/2019 1 07/09/2019 documented as of this encounter (statuses as of 03/09/2022) [facility] History of Past illness Narrative* Problem Noted Date Resolved Date Sepsis 03/09/2020 03/13/2020 Obesity, Class II, BMI 35-39.9 12/06/2019 1 07/09/2019 documented as of this encounter (statuses as of 03/10/2022) [facility] History of Past illness Narrative* Problem Noted Date Resolved Date Sepsis 03/09/2020 03/13/2020 Obesity, Class II, BMI 35-39.9 12/06/2019 1 07/09/2019 documented as of this encounter (statuses as of 03/11/2022) [facility] History of Past illness Narrative* Problem Noted Date Resolved Date Sepsis 03/09/2020 03/13/2020 Obesity, Class II, BMI 35-39.9 12/06/2019 1 07/09/2019 documented as of this encounter (statuses as of 03/14/2022) [facility] History of Past illness Narrative* Problem Noted Date Resolved Date Sepsis 03/09/2020 03/13/2020 Obesity, Class II, BMI 35-39.9 12/06/2019 1 07/09/2019 documented as of this encounter (statuses as of 03/16/2022) [facility] History of Past illness Narrative* Problem Noted Date Resolved Date Sepsis 03/09/2020 03/13/2020 Obesity, Class II, BMI 35-39.9 12/06/2019 1 07/09/2019 documented as of this encounter (statuses as of 03/16/2022) [facility] History of Past illness Narrative* Problem Noted Date Resolved Date Sepsis 03/09/2020 03/13/2020 Obesity, Class II, BMI 35-39.9 12/06/2019 1 07/09/2019 documented as of this encounter (statuses as of 03/16/2022) [facility] History of Past illness Narrative* Problem Noted Date Resolved Date Sepsis 03/09/2020 03/13/2020 Obesity, Class II, BMI 35-39.9 12/06/2019 1 07/09/2019 documented as of this encounter (statuses as of 03/16/2022) [facility] History of Past illness Narrative* Problem Noted Date Resolved Date Sepsis 03/09/2020 03/13/2020 Obesity, Class II, BMI 35-39.9 12/06/2019 1 07/09/2019 documented as of this encounter (statuses as of 03/17/2022) [facility] History of Past illness Narrative* Problem Noted Date Resolved Date Sepsis 03/09/2020 03/13/2020 Obesity, Class II, BMI 35-39.9 12/06/2019 1 07/09/2019 documented as of this encounter (statuses as of 03/28/2022) [facility] History of Past illness Narrative* Problem Noted Date Resolved Date Sepsis 03/09/2020 03/13/2020 Obesity, Class II, BMI 35-39.9 12/06/2019 1 07/09/2019 documented as of this encounter (statuses as of 03/30/2022) [address]19-2020 History of Past illness Narrative* Problem Noted Date Resolved Date Sepsis 03/09/2020 03/13/2020 Obesity, Class II, BMI 35-39.9 12/06/2019 1 07/09/2019 documented as of this encounter (statuses as of 03/30/2022) [facility] History of Past illness Narrative* Problem Noted Date Resolved Date Sepsis 03/09/2020 03/13/2020 Obesity, Class II, BMI 35-39.9 12/06/2019 1 07/09/2019 documented as of this encounter (statuses as of 03/30/2022) [facility] History of Past illness Narrative* Problem Noted Date Resolved Date Sepsis 03/09/2020 03/13/2020 Obesity, Class II, BMI 35-39.9 12/06/2019 1 07/09/2019 documented as of this encounter (statuses as of 04/05/2022) [facility] History of Past illness Narrative* Problem Noted Date Resolved Date Sepsis 03/09/2020 03/13/2020 Obesity, Class II, BMI 35-39.9 12/06/2019 1 07/09/2019 documented as of this encounter (statuses as of 04/06/2022) [facility] History of Past illness Narrative* Problem Noted Date Resolved Date Sepsis 03/09/2020 03/13/2020 Obesity, Class II, BMI 35-39.9 12/06/2019 1 07/09/2019 documented as of this encounter (statuses as of 04/06/2022) [facility] History of Past illness Narrative* Problem Noted Date Resolved Date Sepsis 03/09/2020 03/13/2020 Obesity, Class II, BMI 35-39.9 12/06/2019 1 07/09/2019 documented as of this encounter (statuses as of 04/06/2022) [facility] History of Past illness Narrative* Problem Noted Date Resolved Date Sepsis 03/09/2020 03/13/2020 Obesity, Class II, BMI 35-39.9 12/06/2019 1 07/09/2019 documented as of this encounter (statuses as of 04/20/2022) [facility] History of Past illness Narrative* Problem Noted Date Resolved Date Sepsis 03/09/2020 03/13/2020 Obesity, Class II, BMI 35-39.9 12/06/2019 1 07/09/2019 documented as of this encounter (statuses as of 04/20/2022) [facility] History of Past illness Narrative* Problem Noted Date Resolved Date Sepsis 03/09/2020 03/13/2020 Obesity, Class II, BMI 35-39.9 12/06/2019 1 07/09/2019 documented as of this encounter (statuses as of 04/26/2022) [facility] History of Past illness Narrative* Problem Noted Date Resolved Date Sepsis 03/09/2020 03/13/2020 Obesity, Class II, BMI 35-39.9 12/06/2019 1 07/09/2019 documented as of this encounter (statuses as of 04/27/2022) [facility] History of Past illness Narrative* Problem Noted Date Resolved Date Sepsis 03/09/2020 03/13/2020 Obesity, Class II, BMI 35-39.9 12/06/2019 1 07/09/2019 documented as of this encounter (statuses as of 04/29/2022) [facility] History of Past illness Narrative* Problem Noted Date Resolved Date Sepsis 03/09/2020 03/13/2020 Obesity, Class II, BMI 35-39.9 12/06/2019 1 07/09/2019 documented as of this encounter (statuses as of 05/11/2022) [facility] History of Past illness Narrative* Problem Noted Date Resolved Date Sepsis 03/09/2020 03/13/2020 Obesity, Class II, BMI 35-39.9 12/06/2019 1 07/09/2019 documented as of this encounter (statuses as of 05/11/2022) [facility] History of Past illness Narrative* Problem Noted Date Resolved Date Sepsis 03/09/2020 03/13/2020 Obesity, Class II, BMI 35-39.9 12/06/2019 1 07/09/2019 documented as of this encounter (statuses as of 05/11/2022) [facility] History of Past illness Narrative* Problem Noted Date Resolved Date Sepsis 03/09/2020 03/13/2020 Obesity, Class II, BMI 35-39.9 12/06/2019 1 07/09/2019 documented as of this encounter (statuses as of 05/13/2022) [facility] History of Past illness Narrative* Problem Noted Date Resolved Date Sepsis 03/09/2020 03/13/2020 Obesity, Class II, BMI 35-39.9 12/06/2019 1 07/09/2019 documented as of this encounter (statuses as of 06/01/2022) [facility] History of Past illness Narrative* Problem Noted Date Resolved Date Sepsis 03/09/2020 03/13/2020 Obesity, Class II, BMI 35-39.9 12/06/2019 1 07/09/2019 documented as of this encounter (statuses as of 06/29/2022) [facility] History of Past illness Narrative* Problem Noted Date Resolved Date Sepsis 03/09/2020 03/13/2020 Obesity, Class II, BMI 35-39.9 12/06/2019 1 07/09/2019 documented as of this encounter (statuses as of 06/29/2022) [facility] History of Past illness Narrative* Problem Noted Date Resolved Date Sepsis 03/09/2020 03/13/2020 Obesity, Class II, BMI 35-39.9 12/06/2019 1 07/09/2019 documented as of this encounter (statuses as of 08/02/2022) [facility] History of Past illness Narrative* Problem Noted Date Resolved Date Sepsis 03/09/2020 03/13/2020 Obesity, Class II, BMI 35-39.9 12/06/2019 1 07/09/2019 documented as of this encounter (statuses as of 08/02/2022) [facility] History of Past illness Narrative* Problem Noted Date Resolved Date Sepsis 03/09/2020 03/13/2020 Obesity, Class II, BMI 35-39.9 12/06/2019 1 07/09/2019 documented as of this encounter (statuses as of 08/04/2022) [facility] History of Past illness Narrative* Problem Noted Date Resolved Date Sepsis 03/09/2020 03/13/2020 Obesity, Class II, BMI 35-39.9 12/06/2019 1 07/09/2019 documented as of this encounter (statuses as of 09/29/2022) [facility] History of Past illness Narrative* Problem Noted Date Resolved Date Sepsis 03/09/2020 03/13/2020 Obesity, Class II, BMI 35-39.9 12/06/2019 1 07/09/2019 documented as of this encounter (statuses as of 09/29/2022) [facility] History of Past illness Narrative* Problem Noted Date Resolved Date Sepsis 03/09/2020 03/13/2020 Obesity, Class II, BMI 35-39.9 12/06/2019 1 07/09/2019 documented as of this encounter (statuses as of 11/03/2022) [facility]10-19-2020 History of Past illness Narrative* Problem Noted Date Resolved Date Sepsis 03/09/2020 03/13/2020 Obesity, Class II, BMI 35-39.9 12/06/2019 1 07/09/2019 documented as of this encounter (statuses as of 11/07/2022) [facility]10-[facility]2020 History of Past illness Narrative* Problem Noted Date Resolved Date Sepsis 03/09/2020 03/13/2020 Obesity, Class II, BMI 35-39.9 12/06/2019 1 07/09/2019 documented as of this encounter (statuses as of 11/10/2022) [address]19-2020 History of Past illness Narrative* Problem Noted Date Resolved Date Sepsis 03/09/2020 03/13/2020 Obesity, Class II, BMI 35-39.9 12/06/2019 1 07/09/2019 documented as of this encounter (statuses as of 11/10/2022) [facility]2020 History of Past illness Narrative* Problem Noted Date Resolved Date Sepsis 03/09/2020 03/13/2020 Obesity, Class II, BMI 35-39.9 12/06/2019 1 07/09/2019 documented as of this encounter (statuses as of 11/24/2022) [facility]2020 History of Past illness Narrative* Problem Noted Date Resolved Date Sepsis 03/09/2020 03/13/2020 Obesity, Class II, BMI 35-39.9 12/06/2019 1 07/09/2019 documented as of this encounter (statuses as of 11/24/2022) [address]19-2020 History of Past illness Narrative* Problem Noted Date Resolved Date Sepsis 03/09/2020 03/13/2020 Obesity, Class II, BMI 35-39.9 12/06/2019 1 07/09/2019 documented as of this encounter (statuses as of 11/24/2022) [address]19-2020 History of Past illness Narrative* Problem Noted Date Diagnosed Date Resolved Date Sepsis 03/09/2020 03/13/2020 Obesity, Class II, BMI 35-39.9 12/06/2019 05/08/2020 documented as of this encounter (statuses as of 11/28/2022) [address]19-2020 History of Past illness Narrative* Problem Noted Date Diagnosed Date Resolved Date Sepsis 03/09/2020 03/13/2020 Obesity, Class II, BMI 35-39.9 12/06/2019 05/08/2020 documented as of this encounter (statuses as of 11/30/2022) [address]19-2020 History of Past illness Narrative* Problem Noted Date Diagnosed Date Resolved Date Sepsis 03/09/2020 03/13/2020 Obesity, Class II, BMI 35-39.9 12/06/2019 05/08/2020 documented as of this encounter (statuses as of 11/30/2022) [facility] History of Past illness Narrative* Problem Noted Date Diagnosed Date Resolved Date Sepsis 03/09/2020 03/13/2020 Obesity, Class II, BMI 35-39.9 12/06/2019 05/08/2020 documented as of this encounter (statuses as of 12/05/2022) [facility]2020 History of Past illness Narrative* Problem Noted Date Diagnosed Date Resolved Date Sepsis 03/09/2020 03/13/2020 Obesity, Class II, BMI 35-39.9 12/06/2019 05/08/2020 documented as of this encounter (statuses as of 12/05/2022) [facility]2020 History of Past illness Narrative* Problem Noted Date Diagnosed Date Resolved Date Sepsis 03/09/2020 03/13/2020 Obesity, Class II, BMI 35-39.9 12/06/2019 05/08/2020 documented as of this encounter (statuses as of 12/06/2022) [facility]2020 History of Past illness Narrative* Problem Noted Date Diagnosed Date Resolved Date Sepsis 03/09/2020 03/13/2020 Obesity, Class II, BMI 35-39.9 12/06/2019 05/08/2020 documented as of this encounter (statuses as of 12/06/2022) [facility] History of Past illness Narrative* Problem Noted Date Diagnosed Date Resolved Date Sepsis 03/09/2020 03/13/2020 Obesity, Class II, BMI 35-39.9 12/06/2019 05/08/2020 documented as of this encounter (statuses as of 12/14/2022) [facility] History of Past illness Narrative* Problem Noted Date Diagnosed Date Resolved Date Sepsis 03/09/2020 03/13/2020 Obesity, Class II, BMI 35-39.9 12/06/2019 05/08/2020 documented as of this encounter (statuses as of 12/14/2022) [facility]2020 History of Past illness Narrative* Problem Noted Date Diagnosed Date Resolved Date Sepsis 03/09/2020 03/13/2020 Obesity, Class II, BMI 35-39.9 12/06/2019 05/08/2020 documented as of this encounter (statuses as of 12/21/2022) [address]19-2020 History of Past illness Narrative* Problem Noted Date Diagnosed Date Resolved Date Sepsis 03/09/2020 03/13/2020 Obesity, Class II, BMI 35-39.9 12/06/2019 05/08/2020 documented as of this encounter (statuses as of 12/21/2022) [facility] History of Past illness Narrative* Problem Noted Date Diagnosed Date Resolved Date Sepsis 03/09/2020 03/13/2020 Obesity, Class II, BMI 35-39.9 12/06/2019 05/08/2020 documented as of this encounter (statuses as of 12/21/2022) [facility] History of Past illness Narrative* Problem Noted Date Diagnosed Date Resolved Date Sepsis 03/09/2020 03/13/2020 Obesity, Class II, BMI 35-39.9 12/06/2019 05/08/2020 documented as of this encounter (statuses as of 12/22/2022) [facility] History of Past illness Narrative* Problem Noted Date Diagnosed Date Resolved Date Sepsis 03/09/2020 03/13/2020 Obesity, Class II, BMI 35-39.9 12/06/2019 05/08/2020 documented as of this encounter (statuses as of 01/05/2023) [facility]2020 History of Past illness Narrative* Problem Noted Date Diagnosed Date Resolved Date Sepsis 03/09/2020 03/13/2020 Obesity, Class II, BMI 35-39.9 12/06/2019 05/08/2020 documented as of this encounter (statuses as of 02/01/2023) [facility] History of Past illness Narrative* Problem Noted Date Diagnosed Date Resolved Date Sepsis 03/09/2020 03/13/2020 Obesity, Class II, BMI 35-39.9 12/06/2019 05/08/2020 documented as of this encounter (statuses as of 02/01/2023) [facility]2020 History of Past illness Narrative* Problem Noted Date Diagnosed Date Resolved Date Sepsis 03/09/2020 03/13/2020 Obesity, Class II, BMI 35-39.9 12/06/2019 05/08/2020 documented as of this encounter (statuses as of 02/09/2023) [facility]2020 History of Past illness Narrative* Problem Noted Date Diagnosed Date Resolved Date Sepsis 03/09/2020 03/13/2020 Obesity, Class II, BMI 35-39.9 12/06/2019 05/08/2020 documented as of this encounter (statuses as of 02/10/2023) [facility] History of Past illness Narrative* Problem Noted Date Diagnosed Date Resolved Date Sepsis 03/09/2020 03/13/2020 Obesity, Class II, BMI 35-39.9 12/06/2019 05/08/2020 documented as of this encounter (statuses as of 02/11/2023) [facility]2020 History of Past illness Narrative* Problem Noted Date Diagnosed Date Resolved Date Sepsis 03/09/2020 03/13/2020 Obesity, Class II, BMI 35-39.9 12/06/2019 05/08/2020 documented as of this encounter (statuses as of 03/01/2023) [facility] History of Past illness Narrative* Problem Noted Date Diagnosed Date Resolved Date Sepsis 03/09/2020 03/13/2020 Obesity, Class II, BMI 35-39.9 12/06/2019 05/08/2020 documented as of this encounter (statuses as of 03/03/2023) [facility] History of Past illness Narrative* Problem Noted Date Diagnosed Date Resolved Date Sepsis 03/09/2020 03/13/2020 Obesity, Class II, BMI 35-39.9 12/06/2019 05/08/2020 documented as of this encounter (statuses as of 03/08/2023) [facility] History of Past illness Narrative* Problem Noted Date Diagnosed Date Resolved Date Sepsis 03/09/2020 03/13/2020 Obesity, Class II, BMI 35-39.9 12/06/2019 05/08/2020 documented as of this encounter (statuses as of 03/08/2023) [facility] History of Past illness Narrative* Problem Noted Date Diagnosed Date Resolved Date Sepsis 03/09/2020 03/13/2020 Obesity, Class II, BMI 35-39.9 12/06/2019 05/08/2020 documented as of this encounter (statuses as of 03/09/2023) [facility] History of Past illness Narrative* Problem Noted Date Diagnosed Date Resolved Date Sepsis 03/09/2020 03/13/2020 Obesity, Class II, BMI 35-39.9 12/06/2019 05/08/2020 documented as of this encounter (statuses as of 03/31/2023) [facility] History of Past illness Narrative* Problem Noted Date Diagnosed Date Resolved Date Sepsis 03/09/2020 03/13/2020 Obesity, Class II, BMI 35-39.9 12/06/2019 05/08/2020 documented as of this encounter (statuses as of 04/05/2023) [facility] History of Past illness Narrative* Problem Noted Date Diagnosed Date Resolved Date Sepsis 03/09/2020 03/13/2020 Obesity, Class II, BMI 35-39.9 12/06/2019 05/08/2020 documented as of this encounter (statuses as of 04/05/2023) [facility] History of Past illness Narrative* Problem Noted Date Diagnosed Date Resolved Date Sepsis 03/09/2020 03/13/2020 Obesity, Class II, BMI 35-39.9 12/06/2019 05/08/2020 documented as of this encounter (statuses as of 04/05/2023) [facility] History of Past illness Narrative* Problem Noted Date Diagnosed Date Resolved Date Sepsis 03/09/2020 03/13/2020 Obesity, Class II, BMI 35-39.9 12/06/2019 05/08/2020 documented as of this encounter (statuses as of 04/06/2023) [facility] History of Past illness Narrative* Problem Noted Date Diagnosed Date Resolved Date Sepsis 03/09/2020 03/13/2020 Obesity, Class II, BMI 35-39.9 12/06/2019 05/08/2020 documented as of this encounter (statuses as of 04/07/2023) [facility] History of Past illness Narrative* Problem Noted Date Diagnosed Date Resolved Date Sepsis 03/09/2020 03/13/2020 Obesity, Class II, BMI 35-39.9 12/06/2019 05/08/2020 documented as of this encounter (statuses as of 05/05/2023) [facility] History of Past illness Narrative* Problem Noted Date Diagnosed Date Resolved Date Sepsis 03/09/2020 03/13/2020 Obesity, Class II, BMI 35-39.9 12/06/2019 05/08/2020 documented as of this encounter (statuses as of 05/06/2023) [address]19-2020 History of Past illness Narrative* Problem Noted Date Diagnosed Date Resolved Date Sepsis 03/09/2020 03/13/2020 Obesity, Class II, BMI 35-39.9 12/06/2019 05/08/2020 documented as of this encounter (statuses as of 05/06/2023) [address]19-2020 History of Past illness Narrative* Problem Noted Date Diagnosed Date Resolved Date Sepsis 03/09/2020 03/13/2020 Obesity, Class II, BMI 35-39.9 12/06/2019 05/08/2020 documented as of this encounter (statuses as of 06/23/2023) [address]19-2020 History of Past illness Narrative* Problem Noted Date Diagnosed Date Resolved Date Sepsis 03/09/2020 03/13/2020 Obesity, Class II, BMI 35-39.9 12/06/2019 05/08/2020 documented as of this encounter (statuses as of 06/23/2023) [address]19-2020 History of Past illness Narrative* Problem Noted Date Diagnosed Date Resolved Date Sepsis 03/09/2020 03/13/2020 Obesity, Class II, BMI 35-39.9 12/06/2019 05/08/2020 documented as of this encounter (statuses as of 07/05/2023) [facility] History of Past illness Narrative* Problem Noted Date Diagnosed Date Resolved Date Sepsis 03/09/2020 03/13/2020 Obesity, Class II, BMI 35-39.9 12/06/2019 05/08/2020 documented as of this encounter (statuses as of 07/05/2023) [address]19-2020 History of Past illness Narrative* Problem Noted Date Diagnosed Date Resolved Date Sepsis 03/09/2020 03/13/2020 Obesity, Class II, BMI 35-39.9 12/06/2019 05/08/2020 documented as of this encounter (statuses as of 07/07/2023) [address]19-2020 History of Past illness Narrative* Problem Noted Date Diagnosed Date Resolved Date Sepsis 03/09/2020 03/13/2020 Obesity, Class II, BMI 35-39.9 12/06/2019 05/08/2020 documented as of this encounter (statuses as of 07/13/2023) [address]19-2020 History of Past illness Narrative* Problem Noted Date Diagnosed Date Resolved Date Sepsis 03/09/2020 03/13/2020 Obesity, Class II, BMI 35-39.9 12/06/2019 05/08/2020 documented as of this encounter (statuses as of 07/19/2023) [address]19-2020 History of Past illness Narrative* Problem Noted Date Diagnosed Date Resolved Date Sepsis 03/09/2020 03/13/2020 Obesity, Class II, BMI 35-39.9 12/06/2019 05/08/2020 documented as of this encounter (statuses as of 07/20/2023) [address]19-2020 History of Past illness Narrative* Problem Noted Date Diagnosed Date Resolved Date Sepsis 03/09/2020 03/13/2020 Obesity, Class II, BMI 35-39.9 12/06/2019 05/08/2020 documented as of this encounter (statuses as of 07/20/2023) [address]19-2020 History of Past illness Narrative* Problem Noted Date Diagnosed Date Resolved Date Sepsis 03/09/2020 03/13/2020 Obesity, Class II, BMI 35-39.9 12/06/2019 05/08/2020 documented as of this encounter (statuses as of 07/21/2023) [address]19-2020 History of Past illness Narrative* Problem Noted Date Diagnosed Date Resolved Date Sepsis 03/09/2020 03/13/2020 Obesity, Class II, BMI 35-39.9 12/06/2019 05/08/2020 documented as of this encounter (statuses as of 07/26/2023) [address]19-2020 History of Past illness Narrative* Problem Noted Date Diagnosed Date Resolved Date Sepsis 03/09/2020 03/13/2020 Obesity, Class II, BMI 35-39.9 12/06/2019 05/08/2020 documented as of this encounter (statuses as of 08/02/2023) [address]19-2020 History of Past illness Narrative* Problem Noted Date Diagnosed Date Resolved Date Sepsis 03/09/2020 03/13/2020 Obesity, Class II, BMI 35-39.9 12/06/2019 05/08/2020 documented as of this encounter (statuses as of 08/02/2023) [address]19-2020 History of Past illness Narrative* Problem Noted Date Diagnosed Date Resolved Date Sepsis 03/09/2020 03/13/2020 Obesity, Class II, BMI 35-39.9 12/06/2019 05/08/2020 documented as of this encounter (statuses as of 08/02/2023) [address]19-2020 History of Past illness Narrative* Problem Noted Date Diagnosed Date Resolved Date Sepsis 03/09/2020 03/13/2020 Obesity, Class II, BMI 35-39.9 12/06/2019 05/08/2020 documented as of this encounter (statuses as of 08/04/2023) [address]19-2020 History of Past illness Narrative* Problem Noted Date Diagnosed Date Resolved Date Sepsis 03/09/2020 03/13/2020 Obesity, Class II, BMI 35-39.9 12/06/2019 05/08/2020 documented as of this encounter (statuses as of 08/09/2023) [address]19-2020 History of Past illness Narrative* Problem Noted Date Diagnosed Date Resolved Date Sepsis 03/09/2020 03/13/2020 Obesity, Class II, BMI 35-39.9 12/06/2019 05/08/2020 documented as of this encounter (statuses as of 08/11/2023) [address]19-2020 History of Past illness Narrative* Problem Noted Date Diagnosed Date Resolved Date Sepsis 03/09/2020 03/13/2020 Obesity, Class II, BMI 35-39.9 12/06/2019 05/08/2020 documented as of this encounter (statuses as of 08/23/2023) [address]19-2020 History of Past illness Narrative* Problem Noted Date Diagnosed Date Resolved Date Sepsis 03/09/2020 03/13/2020 Obesity, Class II, BMI 35-39.9 12/06/2019 05/08/2020 documented as of this encounter (statuses as of 08/24/2023) [address]19-2020 History of Past illness Narrative* [...] [facility]* Diagnosis Malignant [...] severe protein-calorie malnutrition [facility] [...] of tobacco use, 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 current use of anticoagulant Long-term (current) use [...] head of pancreas documented in this encounter [facility] note* Diagnosis Pre-op evaluation- Primary Preoperative examination, unspecified Infection in abdomen (HCC) Unspecified peritonitis Obstructive sleep apnea Obstructive sleep apnea (adult) (pediatric) Former smoker Personal history of tobacco use, 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 to health retirement current use of anticoagulant Long-term (current) use [...] head of pancreas documented in this encounter [facility] note* Diagnosis Pre-op evaluation- Primary Preoperative examination, unspecified Infection in abdomen (HCC) Unspecified peritonitis Obstructive sleep apnea Obstructive sleep apnea (adult) (pediatric) Former smoker Personal history of tobacco use, 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 current use of anticoagulant Long-term (current) use [...] [facility] pancreas [facility] Diagnosis Pre-op evaluation- Primary Preoperative examination, unspecified Infection in abdomen (HCC) Unspecified peritonitis Obstructive sleep apnea Obstructive sleep apnea (adult) (pediatric) Former smoker Personal history of tobacco use, 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 current use of anticoagulant Long-term (current) use [...] [facility] Diagnosis Pre-op evaluation- Primary Preoperative examination, unspecified Infection in abdomen (HCC) Unspecified peritonitis Obstructive sleep apnea Obstructive sleep apnea (adult) (pediatric) Former smoker Personal history of tobacco use, 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 current use of anticoagulant Long-term (current) use [...] head of pancreas documented in this encounter [facility] note* Diagnosis Pre-op evaluation- Primary Preoperative examination, unspecified Infection in abdomen (HCC) Unspecified peritonitis Obstructive sleep apnea Obstructive sleep apnea (adult) (pediatric) Former smoker Personal history of tobacco use, 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 current use of anticoagulant Long-term (current) use [...] head of pancreas documented in this encounter [facility] note* Diagnosis Pre-op evaluation- Primary Preoperative examination, unspecified Infection in abdomen (HCC) Unspecified peritonitis Obstructive sleep apnea Obstructive sleep apnea (adult) (pediatric) Former smoker Personal history of tobacco use, 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 to health retirement current use of anticoagulant Long-term (current) use [...] (HCC) Acute cough documented in this encounter [facility] note* Diagnosis Pre-op evaluation- Primary Preoperative examination, unspecified Infection in abdomen (HCC) Unspecified peritonitis Obstructive sleep apnea Obstructive sleep apnea (adult) (pediatric) Former smoker Personal history of tobacco use, 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 to health retirement current use of anticoagulant Long-term (current) use [...] head of pancreas documented in this encounter [facility] note* Diagnosis Pre-op evaluation- Primary Preoperative examination, unspecified Infection in abdomen (HCC) Unspecified peritonitis Obstructive sleep apnea Obstructive sleep apnea (adult) (pediatric) Former smoker Personal history of tobacco use, 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 to health retirement current use of anticoagulant Long-term (current) use [...] of malignancy (HCC) documented in this encounter [facility] note* Diagnosis Pre-op evaluation- Primary Preoperative examination, unspecified Infection in abdomen (HCC) Unspecified peritonitis Obstructive sleep apnea Obstructive sleep apnea (adult) (pediatric) Former smoker Personal history of tobacco use, 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 current use of anticoagulant Long-term (current) use [...] head of pancreas documented in this encounter [facility] note* Diagnosis Pre-op evaluation- Primary Preoperative examination, unspecified Infection in abdomen (HCC) Unspecified peritonitis Obstructive sleep apnea Obstructive sleep apnea (adult) (pediatric) Former smoker Personal history of tobacco use, 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 current use of anticoagulant Long-term (current) use [...] head of pancreas [facility]* Diagnosis Pre-op evaluation- Primary Preoperative examination, unspecified Infection in abdomen (HCC) Unspecified peritonitis Obstructive sleep apnea Obstructive sleep apnea (adult) (pediatric) Former smoker Personal history of tobacco use, 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 to health retirement current use of anticoagulant Long-term (current) use [...] head of pancreas documented in this encounter [facility] note* Diagnosis Pre-op evaluation- Primary Preoperative examination, unspecified Infection in abdomen (HCC) Unspecified peritonitis Obstructive sleep apnea Obstructive sleep apnea (adult) (pediatric) Former smoker Personal history of tobacco use, 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 to health retirement current use of anticoagulant Long-term (current) use [...] pancreas [facility] Diagnosis Pre-op evaluation- Primary Preoperative examination, unspecified Infection in abdomen (HCC) Unspecified peritonitis Obstructive sleep apnea Obstructive sleep apnea (adult) (pediatric) Former smoker Personal history of tobacco use, 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 current use of anticoagulant Long-term (current) use [...] head of pancreas documented in this encounter [facility] note* Diagnosis Pre-op evaluation- Primary Preoperative examination, unspecified Infection in abdomen (HCC) Unspecified peritonitis Obstructive sleep apnea Obstructive sleep apnea (adult) (pediatric) Former smoker Personal history of tobacco use, 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 to health retirement current use of anticoagulant Long-term (current) use [...] head of pancreas documented in this encounter [facility] note* Diagnosis Pre-op evaluation- Primary Preoperative examination, unspecified Infection in abdomen (HCC) Unspecified peritonitis Obstructive sleep apnea Obstructive sleep apnea (adult) (pediatric) Former smoker Personal history of tobacco use, 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 to health retirement current use of anticoagulant Long-term (current) use [...] head of pancreas [facility]* Diagnosis Pre-op evaluation- Primary Preoperative examination, unspecified Infection in abdomen (HCC) Unspecified peritonitis Obstructive sleep apnea Obstructive sleep apnea (adult) (pediatric) Former smoker Personal history of tobacco use, 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 current use of anticoagulant Long-term (current) use [...] of pancreas (HCC) [facility] Diagnosis Pre-op evaluation- Primary Preoperative examination, unspecified Infection in abdomen (HCC) Unspecified peritonitis Obstructive sleep apnea Obstructive sleep apnea (adult) (pediatric) Former smoker Personal history of tobacco use, 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 current use of anticoagulant Long-term (current) use [...] pancreas [facility] Diagnosis Pre-op evaluation- Primary Preoperative examination, unspecified Infection in abdomen (HCC) Unspecified peritonitis Obstructive sleep apnea Obstructive sleep apnea (adult) (pediatric) Former smoker Personal history of tobacco use, 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 current use of anticoagulant Long-term (current) use [...] pancreas [facility] Diagnosis Pre-op evaluation- Primary Preoperative examination, unspecified Infection in abdomen (HCC) Unspecified peritonitis Obstructive sleep apnea Obstructive sleep apnea (adult) (pediatric) Former smoker Personal history of tobacco use, 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 to health retirement current use of anticoagulant Long-term (current) use [...] of insulin (HCC) [facility] Diagnosis Pre-op evaluation- Primary Preoperative examination, unspecified Infection in abdomen (HCC) Unspecified peritonitis Obstructive sleep apnea Obstructive sleep apnea (adult) (pediatric) Former smoker Personal history of tobacco use, 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 current use of anticoagulant Long-term (current) use [...] pancreas [facility]* Diagnosis Pre-op evaluation- Primary Preoperative examination, unspecified Infection in abdomen (HCC) Unspecified peritonitis Obstructive sleep apnea Obstructive sleep apnea (adult) (pediatric) Former smoker Personal history of tobacco use, 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 current use of anticoagulant Long-term (current) use [...] [facility] Diagnosis Pneumonia of left lower lobe due to infectious organism- Primary Pancreatic adenocarcinoma (CMS/HCC) Malignant neoplasm of pancreas, part unspecified Immunosuppressed status (CMS/HCC) [facility] Outpatient Procedure (Urgent) - Pending Review Specialty Diagnoses / Procedures Referred By Riaz jordan Referred To [facility] Diagnoses Leg swelling Procedures US LEG VEIN DVT SADIE [facility] DUP-SCAN XTR VEINS COMPLETE BILATERAL STUDY Greta Wetzel PA-C [address] [place] [address] [place] [address] [facility] [address] [place] [address] Referral ID Status Reason Start Date Expiration Date Visits Requested Visits Authorized [id number] Pending Review Auto-Generat ed Referral 10/03/2023 10/02/2024 1 1 [facility] for referral (narrative)* Diagnostic Procedure Only (Routine) - Pending Review Specialty Diagnoses / Procedures Referred By Contbelem t Referred To Contact XR IMAGING Diagnoses 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) Central line complication, initial encounter Procedures XR CHEST 1V FRONTAL PORT RADIOLOGIC EXAM CHEST SINGLE VIEW Greta Wetzel PA-C [address] [place] [address] [place] [address] [place] [address] Referral ID Status Reason Start Date Expiration Date Visits Requested Visits Authorized [id number] Pending Review Auto-Generat ed Referral 11/22/2023 12/21/2024 1 1 [facility] Summary Purpose Family History Relationship Condition Age at Onset Recorded Date/T abdoul Not Specified No pertinent family history Unknown Advance Directives Documents on File Type Date Recorded 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 Advance Directive(s) 2021 7:23 AM [...] COMPUTED TOMOGRAPHY THORAX W/CONTRAST Grace Bess MD [address] [place] [address] Referral ID Status Reason Start Date Expiration Date Visits Requested Visits Authorized [id number] Authorized Auto-Generat ed Referral 2 03/24/2023 1 1 Specialty Diagnoses / Procedures Referred By Riaz jordan Referred To Contact Diagnoses Malignant neoplasm of head of pancreas (HCC) Procedures CONSULT TO MEDICAL GENETICS - CANCER MEDICAL GENETICS COUNSELING EACH 30 MINUTES Grace Bess MD [address] [place] [address] [place] [address] Referral ID Status Reason Start Date Expiration Date Visits Requested Visits Authorized [id number] Pending Review PCP Requested Referral Auto-Generate d Referral 2 02/22/2023 1 1 Specialty Diagnoses / Procedures Referred By Riaz jordan Referred To Contact CT IMAGING Diagnoses Malignant neoplasm of head of pancreas (HCC) Procedures CT ABD/PEL W IVCON CT ABD & PELVIS W/CONTRAST Grace Bess MD [address] [place] [address] Imaging Referral ID Status Reason Start Date Expiration Date Visits Requested Visits Authorized [id number] Authorized Auto-Generat ed Referral 06/01/2022 06/10/2023 1 1 Referral ID Status Reason Start Date Expiration Date Visits Requested Visits Authorized [id number] Authorized Auto-Generat ed Referral 06/01/2022 06/10/2023 1 1 Referral ID Status Reason Start Date Expiration Date Visits Requested Visits Authorized [id number] Pending Review Auto-Generat ed Referral 08/03/2022 07/29/2023 1 1 Referral ID Status Reason Start Date Expiration Date Visits Requested Visits Authorized [id number] Pending Review Auto-Generat ed Referral 08/03/2022 07/29/2023 1 1 Referral ID Status Reason Start Date Expiration Date Visits Requested Visits Authorized [id number] Authorized Auto-Generat ed Referral 11/10/2022 10/29/2023 1 1 Referral ID Status Reason Start Date Expiration Date Visits Requested Visits Authorized [id number] Authorized Auto-Generat ed Referral 11/10/2022 10/29/2023 1 1 Specialty Diagnoses / Procedures Referred By Contac t Referred To Contact Endocrinology Diagnoses Malignant neoplasm of head of pancreas (HCC) Type 2 diabetes mellitus without complication, with long-term current use of insulin (HCC) Procedures CONSULT TO ENDOCRINOLOGY OFFICE/OUTPATIENT NEW HIGH MDM 60-74 MINUTES Greta Wetzel PA-C [address] [place] [address] [place] [address] Referral ID Status Reason Start Date Expiration Date Visits Requested Visits Authorized [id number] Authorized PCP Requested Referral 11/23/2022 11/23/2023 1 [...] COMPUTED TOMOGRAPHY THORAX W/CONTRAST Greta Wetzel PA-C [address] [place] [address] [place] [address] Ct Imaging Referral ID Status Reason Start Date Expiration Date Visits Requested Visits Authorized [id number] Pending Review Auto-Generat ed Referral 12/21/2022 01/20/2024 1 1 Specialty Diagnoses / Procedures Referred By Contac t Referred To Contact CT IMAGING Diagnoses Malignant neoplasm of head of pancreas (HCC) Procedures CT ABD/PEL W IVCON CT ABD & PELVIS W/CONTRAST Grace Bess MD [address] [place] [address] [address] [place] [address] Referral ID Status Reason Start Date Expiration Date Visits Requested Visits Authorized [id number] Authorized Auto-Generat ed Referral 05/26/2023 06/03/2024 1 1 Specialty Diagnoses / Procedures Referred By Contac t Referred To Contact CT IMAGING Diagnoses Malignant neoplasm of head of pancreas (HCC) Procedures CT CHEST W IVCON DIAGNOSTIC COMPUTED TOMOGRAPHY THORAX W/CONTRAST Grace Bess MD [address] [place] [address] [address] [place] [address] Referral ID Status Reason Start Date Expiration Date Visits Requested Visits Authorized [id number] Authorized Auto-Generat ed Referral 05/26/2023 06/03/2024 1 1 Referral ID Status Reason Start Date Expiration Date Visits Requested Visits Authorized [id number] Authorized Auto-Generat ed Referral 08/16/2023 08/31/2024 1 1 Referral ID Status Reason Start Date Expiration Date Visits Requested Visits Authorized [id number] Authorized Auto-Generat ed Referral 08/16/2023 08/31/2024 1 1 Referral ID Status Reason Start Date Expiration Date Visits Requested Visits Authorized [id number] Authorized Auto-Generat ed Referral 11/21/2023 11/29/2024 1 1 Referral ID Status Reason Start Date Expiration Date Visits Requested Visits Authorized [id number] Authorized Auto-Generat ed Referral 11/21/2023 11/29/2024 1 1 Referral ID Status Reason Start Date Expiration Date V isits Requested Visits Authorized [id number] Closed Auto-Generate d Referral 11/21/2023 11/29/2024 1 1 Referral ID Status Reason Start Date Expiration Date V isits Requested Visits Authorized [id number] Closed Auto-Generate d Referral 11/21/2023 11/29/2024 1 1 Referral ID Status Reason Start Date Expiration Date V isits Requested Visits Authorized [id number] Closed Auto-Generate d Referral 08/16/2023 08/31/2024 1 1 Referral ID Status Reason Start Date Expiration Date V isits Requested Visits Authorized [id number] Closed Auto-Generate d Referral 08/16/2023 08/31/2024 1 1 Referral ID Status Reason Start Date Expiration Date V isits Requested Visits Authorized [id number] Closed Auto-Generate d Referral 05/26/2023 06/03/2024 1 1 Referral ID Status Reason Start Date Expiration Date V isits Requested Visits Authorized [id number] Closed Auto-Generate d Referral 05/26/2023 06/03/2024 1 1 Referral ID Status Reason Start Date Expiration Date V isits Requested Visits Authorized [id number] Closed Auto-Generate d Referral 11/10/2022 10/29/2023 1 1 Referral ID Status Reason Start Date Expiration Date V isits Requested Visits Authorized [id number] Closed Auto-Generate d Referral 11/10/2022 10/29/2023 1 1 Referral ID Status Reason Start Date Expiration Date V isits Requested Visits Authorized [id number] Closed Auto-Generate d Referral 07/25/2022 07/29/2023 1 1 Referral ID Status Reason Start Date Expiration Date V isits Requested Visits Authorized [id number] Closed Auto-Generate d Referral 07/25/2022 07/29/2023 1 1 Referral ID Status Reason Start Date Expiration Date V isits Requested Visits Authorized [id number] Closed Auto-Generate d Referral 06/01/2022 06/10/2023 1 1 Referral ID Status Reason Start Date Expiration Date V isits Requested Visits Authorized [id number] Closed Auto-Generate d Referral 06/01/2022 06/10/2023 1 1 Referral ID Status Reason Start Date Expiration Date V isits Requested Visits Authorized [id number] Closed Auto-Generate d Referral 03/01/2022 03/24/2023 1 1 Specialty Diagnoses / Procedures Referred By Riaz t Referred To Contact CT IMAGING Diagnoses Other chronic pancreatitis (HCC) Procedures CT PANCREAS W IVCON [place] ABDOMEN W/[place] [address] [address] [facility] [address] [place] [address] [place] [address] Referral ID Status Reason Start Date Expiration Date V isits Requested Visits Authorized [id number] Closed Auto-Generate d Referral 07/21/2021 08/14/2022 1 1 Specialty Diagnoses / Procedures Referred By Contac t Referred To Contact CT IMAGING Diagnoses Malignant neoplasm of head of pancreas (HCC) Procedures CT CHEST W IVCON DIAGNOSTIC COMPUTED TOMOGRAPHY THORAX W/CONTRAST Vivek Smith MD [address] [place] [address] [place] [address] [place] [address] Referral ID Status Reason Start Date Expiration Date Visits Requested Visits Authorized [id number] Authorized Auto-Generat ed Referral 4 05/04/2025 1 1 Specialty Diagnoses / Procedures Referred By Contac t Referred To Contact CT IMAGING Diagnoses Malignant neoplasm of head of pancreas (HCC) Procedures CT ABD/PEL W IVCON CT ABD & PELVIS W/CONTRAST Vivek Smith MD [address] [place] [address] [place] [address] Ct Imaging [facility] Referral ID Status Reason Start Date Expiration Date Visits Requested Visits Authorized [id number] Authorized Auto-Generat ed Referral 05/04/2025 1 1 [...] content) DATE CREATED AUTHOR 12/12/2019 [facility] DATE CREATED AUTHOR AUTHOR'S ORGANIZ ATION 04/16/2020 [facility] DATE CREATED AUTHOR AUTHOR'S ORGANIZ ATION 02/19/2021 [facility] DATE CREATED AUTHOR AUTHOR'S ORGANIZ ATION 06/24/2021 [facility] DATE CREATED AUTHOR AUTHOR'S ORGANIZ ATION 09/27/2021 [facility] DATE CREATED AUTHOR AUTHOR'S ORGANIZ ATION 04/14/2022 [facility] DATE CREATED AUTHOR AUTHOR'S ORGANIZ ATION 11/11/2023 [facility] DATE CREATED AUTHOR AUTHOR'S ORGANIZ ATION 01/03/2024 [facility] DATE CREATED AUTHOR AUTHOR'S ORGANIZ ATION 04/03/2024 [facility] DATE CREATED AUTHOR AUTHOR'S ORGANIZ ATION 04/09/2024 [facility] Source Comments (unrecognize d section and content) In the event this informatio n is protected by the Federal Confidentiality of Alcohol and Drug Abuse Patient Records regulations: The Federal rules restrict any use of the information to criminally investigate or prosecute any alcohol or drug abuse patient.[facility] the event this information is protected by the Federal Confidentiality of Alcohol and Drug Abuse Patient Records regulations: The Federal rules restrict any use of the information to criminally investigate or prosecute any alcohol or drug abuse patient.[facility] HospitalIn the event this information is protected by the Federal Confidentiality of Alcohol and Drug Abuse Patient Records regulations: The Federal rules restrict any use of the information to criminally investigate or prosecute any alcohol or drug abuse patient.[facility] HospitalIn the event this information is protected by the Federal Confidentiality of Alcohol and Drug Abuse Patient Records regulations: The Federal rules restrict any use of the information to criminally investigate or prosecute any alcohol or drug abuse patient.[facility] HospitalIn the event this information is protected by the Federal Confidentiality of Alcohol and Drug Abuse Patient Records regulations: The Federal rules restrict any use of the information to criminally investigate or prosecute any alcohol or drug abuse patient.[facility] HospitalIn the event this information is protected by the Federal Confidentiality of Alcohol and Drug Abuse Patient Records regulations: The Federal rules restrict any use of the information to criminally investigate or prosecute any alcohol or drug abuse patient.[facility] HospitalIn the event this information is protected by the Federal Confidentiality of Alcohol and Drug Abuse Patient Records regulations: The Federal rules restrict any use of the information to criminally investigate or prosecute any alcohol or drug abuse patient.[facility]In the event this information is protected by the Federal Confidentiality of Alcohol and Drug Abuse Patient Records regulations: The Federal rules restrict any use of the information to criminally investigate or prosecute any alcohol or drug abuse patient.[facility] HospitalIn the event this information is protected by the Federal Confidentiality of Alcohol and Drug Abuse Patient Records regulations: The Federal rules restrict any use of the information to criminally investigate or prosecute any alcohol or drug abuse patient.[facility] HospitalIn the event this information is protected by the Federal Confidentiality of Alcohol and Drug Abuse Patient Records regulations: The Federal rules restrict any use of the information to criminally investigate or prosecute any alcohol or drug abuse patient.[facility] HospitalIn the event this information is protected by the Federal Confidentiality of Alcohol and Drug Abuse Patient Records regulations: The Federal rules restrict any use of the information to criminally investigate or prosecute any alcohol or drug abuse patient.[facility] HospitalIn the event this information is protected by the Federal Confidentiality of Alcohol and Drug Abuse Patient Records regulations: The Federal rules restrict any use of the information to criminally investigate or prosecute any alcohol or drug abuse patient.[facility] HospitalIn the event this information is protected by the Federal Confidentiality of Alcohol and Drug Abuse Patient Records regulations: The Federal rules restrict any use of the information to criminally investigate or prosecute any alcohol or drug abuse patient.[facility] HospitalIn the event this information is protected by the Federal Confidentiality of Alcohol and Drug Abuse Patient Records regulations: The Federal rules restrict any use of the information to criminally investigate or prosecute any alcohol or drug abuse patient.[facility] HospitalIn the event this information is protected by the Federal Confidentiality of Alcohol and Drug Abuse Patient Records regulations: The Federal rules restrict any use of the information to criminally investigate or prosecute any alcohol or drug abuse patient.[facility] HospitalIn the event this information is protected by the Federal Confidentiality of Alcohol and Drug Abuse Patient Records regulations: The Federal rules restrict any use of the information to criminally investigate or prosecute any alcohol or drug abuse patient.[facility] HospitalIn the event this information is protected by the Federal Confidentiality of Alcohol and Drug Abuse Patient Records regulations: The Federal rules restrict any use of the information to criminally investigate or prosecute any alcohol or drug abuse patient.[facility] HospitalIn the event this information is protected by the Federal Confidentiality of Alcohol and Drug Abuse Patient Records regulations: The Federal rules restrict any use of the information to criminally investigate or prosecute any alcohol or drug abuse patient.[facility] HospitalIn the event this information is protected by the Federal Confidentiality of Alcohol and Drug Abuse Patient Records regulations: The Federal rules restrict any use of the information to criminally investigate or prosecute any alcohol or drug abuse patient.[facility] HospitalIn the event this information is protected by the Federal Confidentiality of Alcohol and Drug Abuse Patient Records regulations: The Federal rules restrict any use of the information to criminally investigate or prosecute any alcohol or drug abuse patient.[facility] HospitalIn the event this information is protected by the Federal Confidentiality of Alcohol and Drug Abuse Patient Records regulations: The Federal rules restrict any use of the information to criminally investigate or prosecute any alcohol or drug abuse patient.[facility] HospitalIn the event this information is protected by the Federal Confidentiality of Alcohol and Drug Abuse Patient Records regulations: The Federal rules restrict any use of the information to criminally investigate or prosecute any alcohol or drug abuse patient.[facility] HospitalIn the event this information is protected by the Federal Confidentiality of Alcohol and Drug Abuse Patient Records regulations: The Federal rules restrict any use of the information to criminally investigate or prosecute any alcohol or drug abuse patient.[facility] HospitalIn the event this information is protected by the Federal Confidentiality of Alcohol and Drug Abuse Patient Records regulations: The Federal rules restrict any use of the information to criminally investigate or prosecute any alcohol or drug abuse patient.[facility] HospitalIn the event this information is protected by the Federal Confidentiality of Alcohol and Drug Abuse Patient Records regulations: The Federal rules restrict any use of the information to criminally investigate or prosecute any alcohol or drug abuse patient.[facility] HospitalIn the event this information is protected by the Federal Confidentiality of Alcohol and Drug Abuse Patient Records regulations: The Federal rules restrict any use of the information to criminally investigate or prosecute any alcohol or drug abuse patient.[facility] HospitalIn the event this information is protected by the Federal Confidentiality of Alcohol and Drug Abuse Patient Records regulations: The Federal rules restrict any use of the information to criminally investigate or prosecute any alcohol or drug abuse patient.[facility] HospitalIn the event this information is protected by the Federal Confidentiality of Alcohol and Drug Abuse Patient Records regulations: The Federal rules restrict any use of the information to criminally investigate or prosecute any alcohol or drug abuse patient.[facility] HospitalIn the event this information is protected by the Federal Confidentiality of Alcohol and Drug Abuse Patient Records regulations: The Federal rules restrict any use of the information to criminally investigate or prosecute any alcohol or drug abuse patient.[facility] HospitalIn the event this information is protected by the Federal Confidentiality of Alcohol and Drug Abuse Patient Records regulations: The Federal rules restrict any use of the information to criminally investigate or prosecute any alcohol or drug abuse patient.[facility] HospitalIn the event this information is protected by the Federal Confidentiality of Alcohol and Drug Abuse Patient Records regulations: The Federal rules restrict any use of the information to criminally investigate or prosecute any alcohol or drug abuse patient.[facility] HospitalIn the event this information is protected by the Federal Confidentiality of Alcohol and Drug Abuse Patient Records regulations: The Federal rules restrict any use of the information to criminally investigate or prosecute any alcohol or drug abuse patient.[facility] HospitalIn the event this information is protected by the Federal Confidentiality of Alcohol and Drug Abuse Patient Records regulations: The Federal rules restrict any use of the information to criminally investigate or prosecute any alcohol or drug abuse patient.[facility] HospitalIn the event this information is protected by the Federal Confidentiality of Alcohol and Drug Abuse Patient Records regulations: The Federal rules restrict any use of the information to criminally investigate or prosecute any alcohol or drug abuse patient.[facility] HospitalIn the event this information is protected by the Federal Confidentiality of Alcohol and Drug Abuse Patient Records regulations: The Federal rules restrict any use of the information to criminally investigate or prosecute any alcohol or drug abuse patient.[facility] HospitalIn the event this information is protected by the Federal Confidentiality of Alcohol and Drug Abuse Patient Records regulations: The Federal rules restrict any use of the information to criminally investigate or prosecute any alcohol or drug abuse patient.[facility] HospitalIn the event this information is protected by the Federal Confidentiality of Alcohol and Drug Abuse Patient Records regulations: The Federal rules restrict any use of the information to criminally investigate or prosecute any alcohol or drug abuse patient.[facility] HospitalIn the event this information is protected by the Federal Confidentiality of Alcohol and Drug Abuse Patient Records regulations: The Federal rules restrict any use of the information to criminally investigate or prosecute any alcohol or drug abuse patient.[facility] HospitalIn the event this information is protected by the Federal Confidentiality of Alcohol and Drug Abuse Patient Records regulations: The Federal rules restrict any use of the information to criminally investigate or prosecute any alcohol or drug abuse patient.[facility] HospitalIn the event this information is protected by the Federal Confidentiality of Alcohol and Drug Abuse Patient Records regulations: The Federal rules restrict any use of the information to criminally investigate or prosecute any alcohol or drug abuse patient.[facility] HospitalIn the event this information is protected by the Federal Confidentiality of Alcohol and Drug Abuse Patient Records regulations: The Federal rules restrict any use of the information to criminally investigate or prosecute any alcohol or drug abuse patient.[facility] HospitalIn the event this information is protected by the Federal Confidentiality of Alcohol and Drug Abuse Patient Records regulations: The Federal rules restrict any use of the information to criminally investigate or prosecute any alcohol or drug abuse patient.[facility] HospitalIn the event this information is protected by the Federal Confidentiality of Alcohol and Drug Abuse Patient Records regulations: The Federal rules restrict any use of the information to criminally investigate or prosecute any alcohol or drug abuse patient.[facility] HospitalIn the event this information is protected by the Federal Confidentiality of Alcohol and Drug Abuse Patient Records regulations: The Federal rules restrict any use of the information to criminally investigate or prosecute any alcohol or drug abuse patient.[facility] HospitalIn the event this information is protected by the Federal Confidentiality of Alcohol and Drug Abuse Patient Records regulations: The Federal rules restrict any use of the information to criminally investigate or prosecute any alcohol or drug abuse patient.[facility] HospitalIn the event this information is protected by the Federal Confidentiality of Alcohol and Drug Abuse Patient Records regulations: The Federal rules restrict any use of the information to criminally investigate or prosecute any alcohol or drug abuse patient.[facility] HospitalIn the event this information is protected by the Federal Confidentiality of Alcohol and Drug Abuse Patient Records regulations: The Federal rules restrict any use of the information to criminally investigate or prosecute any alcohol or drug abuse patient.[facility] HospitalIn the event this information is protected by the Federal Confidentiality of Alcohol and Drug Abuse Patient Records regulations: The Federal rules restrict any use of the information to criminally investigate or prosecute any alcohol or drug abuse patient.[facility]In the event this information is protected by the Federal Confidentiality of Alcohol and Drug Abuse Patient Records regulations: The Federal rules restrict any use of the information to criminally investigate or prosecute any alcohol or drug abuse patient.[facility] HospitalIn the event this information is protected by the Federal Confidentiality of Alcohol and Drug Abuse Patient Records regulations: The Federal rules restrict any use of the information to criminally investigate or prosecute any alcohol or drug abuse patient.[facility]In the event this information is protected by the Federal Confidentiality of Alcohol and Drug Abuse Patient Records regulations: The Federal rules restrict any use of the information to criminally investigate or prosecute any alcohol or drug abuse patient.[facility] HospitalIn the event this information is protected by the Federal Confidentiality of Alcohol and Drug Abuse Patient Records regulations: The Federal rules restrict any use of the information to criminally investigate or prosecute any alcohol or drug abuse patient.[facility] HospitalIn the event this information is protected by the Federal Confidentiality of Alcohol and Drug Abuse Patient Records regulations: The Federal rules restrict any use of the information to criminally investigate or prosecute any alcohol or drug abuse patient.[facility] HospitalIn the event this information is protected by the Federal Confidentiality of Alcohol and Drug Abuse Patient Records regulations: The Federal rules restrict any use of the information to criminally investigate or prosecute any alcohol or drug abuse patient.[facility]In the event this information is protected by the Federal Confidentiality of Alcohol and Drug Abuse Patient Records regulations: The Federal rules restrict any use of the information to criminally investigate or prosecute any alcohol or drug abuse patient.[facility]In the event this information is protected by the Federal Confidentiality of Alcohol and Drug Abuse Patient Records regulations: The Federal rules restrict any use of the information to criminally investigate or prosecute any alcohol or drug abuse patient.[facility] HospitalIn the event this information is protected by the Federal Confidentiality of Alcohol and Drug Abuse Patient Records regulations: The Federal rules restrict any use of the information to criminally investigate or prosecute any alcohol or drug abuse patient.[facility] HospitalIn the event this information is protected by the Federal Confidentiality of Alcohol and Drug Abuse Patient Records regulations: The Federal rules restrict any use of the information to criminally investigate or prosecute any alcohol or drug abuse patient.[facility]In the event this information is protected by the Federal Confidentiality of Alcohol and Drug Abuse Patient Records regulations: The Federal rules restrict any use of the information to criminally investigate or prosecute any alcohol or drug abuse patient.[facility]In the event this information is protected by the Federal Confidentiality of Alcohol and Drug Abuse Patient Records regulations: The Federal rules restrict any use of the information to criminally investigate or prosecute any alcohol or drug abuse patient.[facility] HospitalIn the event this information is protected by the Federal Confidentiality of Alcohol and Drug Abuse Patient Records regulations: The Federal rules restrict any use of the information to criminally investigate or prosecute any alcohol or drug abuse patient.[facility]In the event this information is protected by the Federal Confidentiality of Alcohol and Drug Abuse Patient Records regulations: The Federal rules restrict any use of the information to criminally investigate or prosecute any alcohol or drug abuse patient.[facility] HospitalIn the event this information is protected by the Federal Confidentiality of Alcohol and Drug Abuse Patient Records regulations: The Federal rules restrict any use of the information to criminally investigate or prosecute any alcohol or drug abuse patient.[facility]In the event this information is protected by the Federal Confidentiality of Alcohol and Drug Abuse Patient Records regulations: The Federal rules restrict any use of the information to criminally investigate or prosecute any alcohol or drug abuse patient.[facility] HospitalIn the event this information is protected by the Federal Confidentiality of Alcohol and Drug Abuse Patient Records regulations: The Federal rules restrict any use of the information to criminally investigate or prosecute any alcohol or drug abuse patient.[facility]In the event this information is protected by the Federal Confidentiality of Alcohol and Drug Abuse Patient Records regulations: The Federal rules restrict any use of the information to criminally investigate or prosecute any alcohol or drug abuse patient.[facility] HospitalIn the event this information is protected by the Federal Confidentiality of Alcohol and Drug Abuse Patient Records regulations: The Federal rules restrict any use of the information to criminally investigate or prosecute any alcohol or drug abuse patient.[facility] HospitalIn the event this information is protected by the Federal Confidentiality of Alcohol and Drug Abuse Patient Records regulations: The Federal rules restrict any use of the information to criminally investigate or prosecute any alcohol or drug abuse patient.[facility]In the event this information is protected by the Federal Confidentiality of Alcohol and Drug Abuse Patient Records regulations: The Federal rules restrict any use of the information to criminally investigate or prosecute any alcohol or drug abuse patient.[facility]In the event this information is protected by the Federal Confidentiality of Alcohol and Drug Abuse Patient Records regulations: The Federal rules restrict any use of the information to criminally investigate or prosecute any alcohol or drug abuse patient.[facility]In the event this information is protected by the Federal Confidentiality of Alcohol and Drug Abuse Patient Records regulations: The Federal rules restrict any use of the information to criminally investigate or prosecute any alcohol or drug abuse patient.[facility]In the event this information is protected by the Federal Confidentiality of Alcohol and Drug Abuse Patient Records regulations: The Federal rules restrict any use of the information to criminally investigate or prosecute any alcohol or drug abuse patient.[facility] HospitalIn the event this information is protected by the Federal Confidentiality of Alcohol and Drug Abuse Patient Records regulations: The Federal rules restrict any use of the information to criminally investigate or prosecute any alcohol or drug abuse patient.[facility] HospitalIn the event this information is protected by the Federal Confidentiality of Alcohol and Drug Abuse Patient Records regulations: The Federal rules restrict any use of the information to criminally investigate or prosecute any alcohol or drug abuse patient.[facility]In the event this information is protected by the Federal Confidentiality of Alcohol and Drug Abuse Patient Records regulations: The Federal rules restrict any use of the information to criminally investigate or prosecute any alcohol or drug abuse patient.[facility] HospitalIn the event this information is protected by the Federal Confidentiality of Alcohol and Drug Abuse Patient Records regulations: The Federal rules restrict any use of the information to criminally investigate or prosecute any alcohol or drug abuse patient.[facility] HospitalIn the event this information is protected by the Federal Confidentiality of Alcohol and Drug Abuse Patient Records regulations: The Federal rules restrict any use of the information to criminally investigate or prosecute any alcohol or drug abuse patient.[facility] HospitalIn the event this information is protected by the Federal Confidentiality of Alcohol and Drug Abuse Patient Records regulations: The Federal rules restrict any use of the information to criminally investigate or prosecute any alcohol or drug abuse patient.[facility]In the event this information is protected by the Federal Confidentiality of Alcohol and Drug Abuse Patient Records regulations: The Federal rules restrict any use of the information to criminally investigate or prosecute any alcohol or drug abuse patient.[facility]In the event this information is protected by the Federal Confidentiality of Alcohol and Drug Abuse Patient Records regulations: The Federal rules restrict any use of the information to criminally investigate or prosecute any alcohol or drug abuse patient.[facility]In the event this information is protected by the Federal Confidentiality of Alcohol and Drug Abuse Patient Records regulations: The Federal rules restrict any use of the information to criminally investigate or prosecute any alcohol or drug abuse patient.[facility]In the event this information is protected by the Federal Confidentiality of Alcohol and Drug Abuse Patient Records regulations: The Federal rules restrict any use of the information to criminally investigate or prosecute any alcohol or drug abuse patient.[facility]In the event this information is protected by the Federal Confidentiality of Alcohol and Drug Abuse Patient Records regulations: The Federal rules restrict any use of the information to criminally investigate or prosecute any alcohol or drug abuse patient.[facility]In the event this information is protected by the Federal Confidentiality of Alcohol and Drug Abuse Patient Records regulations: The Federal rules restrict any use of the information to criminally investigate or prosecute any alcohol or drug abuse patient.[facility]In the event this information is protected by the Federal Confidentiality of Alcohol and Drug Abuse Patient Records regulations: The Federal rules restrict any use of the information to criminally investigate or prosecute any alcohol or drug abuse patient.[facility]In the event this information is protected by the Federal Confidentiality of Alcohol and Drug Abuse Patient Records regulations: The Federal rules restrict any use of the information to criminally investigate or prosecute any alcohol or drug abuse patient.[facility]In the event this information is protected by the Federal Confidentiality of Alcohol and Drug Abuse Patient Records regulations: The Federal rules restrict any use of the information to criminally investigate or prosecute any alcohol or drug abuse patient.[facility]In the event this information is protected by the Federal Confidentiality of Alcohol and Drug Abuse Patient Records regulations: The Federal rules restrict any use of the information to criminally investigate or prosecute any alcohol or drug abuse patient.[facility]In the event this information is protected by the Federal Confidentiality of Alcohol and Drug Abuse Patient Records regulations: The Federal rules restrict any use of the information to criminally investigate or prosecute any alcohol or drug abuse patient.[facility]In the event this information is protected by the Federal Confidentiality of Alcohol and Drug Abuse Patient Records regulations: The Federal rules restrict any use of the information to criminally investigate or prosecute any alcohol or drug abuse patient.[facility]In the event this information is protected by the Federal Confidentiality of Alcohol and Drug Abuse Patient Records regulations: The Federal rules restrict any use of the information to criminally investigate or prosecute any alcohol or drug abuse patient.[facility]In the event this information is protected by the Federal Confidentiality of Alcohol and Drug Abuse Patient Records regulations: The Federal rules restrict any use of the information to criminally investigate or prosecute any alcohol or drug abuse patient.[facility]In the event this information is protected by the Federal Confidentiality of Alcohol and Drug Abuse Patient Records regulations: The Federal rules restrict any use of the information to criminally investigate or prosecute any alcohol or drug abuse patient.[facility]In the event this information is protected by the Federal Confidentiality of Alcohol and Drug Abuse Patient Records regulations: The Federal rules restrict any use of the information to criminally investigate or prosecute any alcohol or drug abuse patient.[facility]In the event this information is protected by the Federal Confidentiality of Alcohol and Drug Abuse Patient Records regulations: The Federal rules restrict any use of the information to criminally investigate or prosecute any alcohol or drug abuse patient.[facility]In the event this information is protected by the Federal Confidentiality of Alcohol and Drug Abuse Patient Records regulations: The Federal rules restrict any use of the information to criminally investigate or prosecute any alcohol or drug abuse patient.[facility]In the event this information is protected by the Federal Confidentiality of Alcohol and Drug Abuse Patient Records regulations: The Federal rules restrict any use of the information to criminally investigate or prosecute any alcohol or drug abuse patient.[facility]In the event this information is protected by the Federal Confidentiality of Alcohol and Drug Abuse Patient Records regulations: The Federal rules restrict any use of the information to criminally investigate or prosecute any alcohol or drug abuse patient.[facility]In the event this information is protected by the Federal Confidentiality of Alcohol and Drug Abuse Patient Records regulations: The Federal rules restrict any use of the information to criminally investigate or prosecute any alcohol or drug abuse patient.[facility]In the event this information is protected by the Federal Confidentiality of Alcohol and Drug Abuse Patient Records regulations: The Federal rules restrict any use of the information to criminally investigate or prosecute any alcohol or drug abuse patient.[facility]In the event this information is protected by the Federal Confidentiality of Alcohol and Drug Abuse Patient Records regulations: The Federal rules restrict any use of the information to criminally investigate or prosecute any alcohol or drug abuse patient.[facility]In the event this information is protected by the Federal Confidentiality of Alcohol and Drug Abuse Patient Records regulations: The Federal rules restrict any use of the information to criminally investigate or prosecute any alcohol or drug abuse patient.[facility]In the event this information is protected by the Federal Confidentiality of Alcohol and Drug Abuse Patient Records regulations: The Federal rules restrict any use of the information to criminally investigate or prosecute any alcohol or drug abuse patient.[facility]In the event this information is protected by the Federal Confidentiality of Alcohol and Drug Abuse Patient Records regulations: The Federal rules restrict any use of the information to criminally investigate or prosecute any alcohol or drug abuse patient.[facility]In the event this information is protected by the Federal Confidentiality of Alcohol and Drug Abuse Patient Records regulations: The Federal rules restrict any use of the information to criminally investigate or prosecute any alcohol or drug abuse patient.[facility]In the event this information is protected by the Federal Confidentiality of Alcohol and Drug Abuse Patient Records regulations: The Federal rules restrict any use of the information to criminally investigate or prosecute any alcohol or drug abuse patient.[facility]In the event this information is protected by the Federal Confidentiality of Alcohol and Drug Abuse Patient Records regulations: The Federal rules restrict any use of the information to criminally investigate or prosecute any alcohol or drug abuse patient.[facility]In the event this information is protected by the Federal Confidentiality of Alcohol and Drug Abuse Patient Records regulations: The Federal rules restrict any use of the information to criminally investigate or prosecute any alcohol or drug abuse patient.[facility]In the event this information is protected by the Federal Confidentiality of Alcohol and Drug Abuse Patient Records regulations: The Federal rules restrict any use of the information to criminally investigate or prosecute any alcohol or drug abuse patient.[facility]In the event this information is protected by the Federal Confidentiality of Alcohol and Drug Abuse Patient Records regulations: The Federal rules restrict any use of the information to criminally investigate or prosecute any alcohol or drug abuse patient.[facility]In the event this information is protected by the Federal Confidentiality of Alcohol and Drug Abuse Patient Records regulations: The Federal rules restrict any use of the information to criminally investigate or prosecute any alcohol or drug abuse patient.[facility]In the event this information is protected by the Federal Confidentiality of Alcohol and Drug Abuse Patient Records regulations: The Federal rules restrict any use of the information to criminally investigate or prosecute any alcohol or drug abuse patient.[facility]In the event this information is protected by the Federal Confidentiality of Alcohol and Drug Abuse Patient Records regulations: The Federal rules restrict any use of the information to criminally investigate or prosecute any alcohol or drug abuse patient.[facility]In the event this information is protected by the Federal Confidentiality of Alcohol and Drug Abuse Patient Records regulations: The Federal rules restrict any use of the information to criminally investigate or prosecute any alcohol or drug abuse patient.[facility]In the event this information is protected by the Federal Confidentiality of Alcohol and Drug Abuse Patient Records regulations: The Federal rules restrict any use of the information to criminally investigate or prosecute any alcohol or drug abuse patient.[facility]In the event this information is protected by the Federal Confidentiality of Alcohol and Drug Abuse Patient Records regulations: The Federal rules restrict any use of the information to criminally investigate or prosecute any alcohol or drug abuse patient.[facility]In the event this information is protected by the Federal Confidentiality of Alcohol and Drug Abuse Patient Records regulations: The Federal rules restrict any use of the information to criminally investigate or prosecute any alcohol or drug abuse patient.[facility]In the event this information is protected by the Federal Confidentiality of Alcohol and Drug Abuse Patient Records regulations: The Federal rules restrict any use of the information to criminally investigate or prosecute any alcohol or drug abuse patient.[facility]In the event this information is protected by the Federal Confidentiality of Alcohol and Drug Abuse Patient Records regulations: The Federal rules restrict any use of the information to criminally investigate or prosecute any alcohol or drug abuse patient.[facility]In the event this information is protected by the Federal Confidentiality of Alcohol and Drug Abuse Patient Records regulations: The Federal rules restrict any use of the information to criminally investigate or prosecute any alcohol or drug abuse patient.[facility]In the event this information is protected by the Federal Confidentiality of Alcohol and Drug Abuse Patient Records regulations: The Federal rules restrict any use of the information to criminally investigate or prosecute any alcohol or drug abuse patient.[facility]In the event this information is protected by the Federal Confidentiality of Alcohol and Drug Abuse Patient Records regulations: The Federal rules restrict any use of the information to criminally investigate or prosecute any alcohol or drug abuse patient.[facility]In the event this information is protected by the Federal Confidentiality of Alcohol and Drug Abuse Patient Records regulations: The Federal rules restrict any use of the information to criminally investigate or prosecute any alcohol or drug abuse patient.[facility]In the event this information is protected by the Federal Confidentiality of Alcohol and Drug Abuse Patient Records regulations: The Federal rules restrict any use of the information to criminally investigate or prosecute any alcohol or drug abuse patient.[facility]In the event this information is protected by the Federal Confidentiality of Alcohol and Drug Abuse Patient Records regulations: The Federal rules restrict any use of the information to criminally investigate or prosecute any alcohol or drug abuse patient.[facility]In the event this information is protected by the Federal Confidentiality of Alcohol and Drug Abuse Patient Records regulations: The Federal rules restrict any use of the information to criminally investigate or prosecute any alcohol or drug abuse patient.[facility]In the event this information is protected by the Federal Confidentiality of Alcohol and Drug Abuse Patient Records regulations: The Federal rules restrict any use of the information to criminally investigate or prosecute any alcohol or drug abuse patient.[facility]In the event this information is protected by the Federal Confidentiality of Alcohol and Drug Abuse Patient Records regulations: The Federal rules restrict any use of the information to criminally investigate or prosecute any alcohol or drug abuse patient.[facility]In the event this information is protected by the Federal Confidentiality of Alcohol and Drug Abuse Patient Records regulations: The Federal rules restrict any use of the information to criminally investigate or prosecute any alcohol or drug abuse patient.[facility]In the event this information is protected by the Federal Confidentiality of Alcohol and Drug Abuse Patient Records regulations: The Federal rules restrict any use of the information to criminally investigate or prosecute any alcohol or drug abuse patient.[facility]In the event this information is protected by the Federal Confidentiality of Alcohol and Drug Abuse Patient Records regulations: The Federal rules restrict any use of the information to criminally investigate or prosecute any alcohol or drug abuse patient.[facility]In the event this information is protected by the Federal Confidentiality of Alcohol and Drug Abuse Patient Records regulations: The Federal rules restrict any use of the information to criminally investigate or prosecute any alcohol or drug abuse patient.[facility]In the event this information is protected by the Federal Confidentiality of Alcohol and Drug Abuse Patient Records regulations: The Federal rules restrict any use of the information to criminally investigate or prosecute any alcohol or drug abuse patient.[facility]In the event this information is protected by the Federal Confidentiality of Alcohol and Drug Abuse Patient Records regulations: The Federal rules restrict any use of the information to criminally investigate or prosecute any alcohol or drug abuse patient.[facility] HospitalIn the event this information is protected by the Federal Confidentiality of Alcohol and Drug Abuse Patient Records regulations: The Federal rules restrict any use of the information to criminally investigate or prosecute any alcohol or drug abuse patient.[facility] HospitalIn the event this information is protected by the Federal Confidentiality of Alcohol and Drug Abuse Patient Records regulations: The Federal rules restrict any use of the information to criminally investigate or prosecute any alcohol or drug abuse patient.[facility] HospitalIn the event this information is protected by the Federal Confidentiality of Alcohol and Drug Abuse Patient Records regulations: The Federal rules restrict any use of the information to criminally investigate or prosecute any alcohol or drug abuse patient.[facility] HospitalIn the event this information is protected by the Federal Confidentiality of Alcohol and Drug Abuse Patient Records regulations: The Federal rules restrict any use of the information to criminally investigate or prosecute any alcohol or drug abuse patient.[facility] HospitalIn the event this information is protected by the Federal Confidentiality of Alcohol and Drug Abuse Patient Records regulations: The Federal rules restrict any use of the information to criminally investigate or prosecute any alcohol or drug abuse patient.[facility] HospitalIn the event this information is protected by the Federal Confidentiality of Alcohol and Drug Abuse Patient Records regulations: The Federal rules restrict any use of the information to criminally investigate or prosecute any alcohol or drug abuse patient.[facility] HospitalIn the event this information is protected by the Federal Confidentiality of Alcohol and Drug Abuse Patient Records regulations: The Federal rules restrict any use of the information to criminally investigate or prosecute any alcohol or drug abuse patient.[facility] HospitalIn the event this information is protected by the Federal Confidentiality of Alcohol and Drug Abuse Patient Records regulations: The Federal rules restrict any use of the information to criminally investigate or prosecute any alcohol or drug abuse patient.[facility] HospitalIn the event this information is protected by the Federal Confidentiality of Alcohol and Drug Abuse Patient Records regulations: The Federal rules restrict any use of the information to criminally investigate or prosecute any alcohol or drug abuse patient.[facility] HospitalIn the event this information is protected by the Federal Confidentiality of Alcohol and Drug Abuse Patient Records regulations: The Federal rules restrict any use of the information to criminally investigate or prosecute any alcohol or drug abuse patient.[facility] HospitalIn the event this information is protected by the Federal Confidentiality of Alcohol and Drug Abuse Patient Records regulations: The Federal rules restrict any use of the information to criminally investigate or prosecute any alcohol or drug abuse patient.[facility] HospitalIn the event this information is protected by the Federal Confidentiality of Alcohol and Drug Abuse Patient Records regulations: The Federal rules restrict any use of the information to criminally investigate or prosecute any alcohol or drug abuse patient.[facility] HospitalIn the event this information is protected by the Federal Confidentiality of Alcohol and Drug Abuse Patient Records regulations: The Federal rules restrict any use of the information to criminally investigate or prosecute any alcohol or drug abuse patient.[facility] HospitalIn the event this information is protected by the Federal Confidentiality of Alcohol and Drug Abuse Patient Records regulations: The Federal rules restrict any use of the information to criminally investigate or prosecute any alcohol or drug abuse patient.[facility] HospitalIn the event this information is protected by the Federal Confidentiality of Alcohol and Drug Abuse Patient Records regulations: The Federal rules restrict any use of the information to criminally investigate or prosecute any alcohol or drug abuse patient.[facility] HospitalIn the event this information is protected by the Federal Confidentiality of Alcohol and Drug Abuse Patient Records regulations: The Federal rules restrict any use of the information to criminally investigate or prosecute any alcohol or drug abuse patient.[facility] HospitalIn the event this information is protected by the Federal Confidentiality of Alcohol and Drug Abuse Patient Records regulations: The Federal rules restrict any use of the information to criminally investigate or prosecute any alcohol or drug abuse patient.[facility] HospitalIn the event this information is protected by the Federal Confidentiality of Alcohol and Drug Abuse Patient Records regulations: The Federal rules restrict any use of the information to criminally investigate or prosecute any alcohol or drug abuse patient.[facility] HospitalIn the event this information is protected by the Federal Confidentiality of Alcohol and Drug Abuse Patient Records regulations: The Federal rules restrict any use of the information to criminally investigate or prosecute any alcohol or drug abuse patient.[facility] HospitalIn the event this information is protected by the Federal Confidentiality of Alcohol and Drug Abuse Patient Records regulations: The Federal rules restrict any use of the information to criminally investigate or prosecute any alcohol or drug abuse patient.[facility] HospitalIn the event this information is protected by the Federal Confidentiality of Alcohol and Drug Abuse Patient Records regulations: The Federal rules restrict any use of the information to criminally investigate or prosecute any alcohol or drug abuse patient.[facility] HospitalIn the event this information is protected by the Federal Confidentiality of Alcohol and Drug Abuse Patient Records regulations: The Federal rules restrict any use of the information to criminally investigate or prosecute any alcohol or drug abuse patient.[facility] HospitalIn the event this information is protected by the Federal Confidentiality of Alcohol and Drug Abuse Patient Records regulations: The Federal rules restrict any use of the information to criminally investigate or prosecute any alcohol or drug abuse patient.[facility] HospitalIn the event this information is protected by the Federal Confidentiality of Alcohol and Drug Abuse Patient Records regulations: The Federal rules restrict any use of the information to criminally investigate or prosecute any alcohol or drug abuse patient.[facility] HospitalIn the event this information is protected by the Federal Confidentiality of Alcohol and Drug Abuse Patient Records regulations: The Federal rules restrict any use of the information to criminally investigate or prosecute any alcohol or drug abuse patient.[facility] HospitalIn the event this information is protected by the Federal Confidentiality of Alcohol and Drug Abuse Patient Records regulations: The Federal rules restrict any use of the information to criminally investigate or prosecute any alcohol or drug abuse patient.[facility] HospitalIn the event this information is protected by the Federal Confidentiality of Alcohol and Drug Abuse Patient Records regulations: The Federal rules restrict any use of the information to criminally investigate or prosecute any alcohol or drug abuse patient.[facility] HospitalIn the event this information is protected by the Federal Confidentiality of Alcohol and Drug Abuse Patient Records regulations: The Federal rules restrict any use of the information to criminally investigate or prosecute any alcohol or drug abuse patient.[facility] HospitalIn the event this information is protected by the Federal Confidentiality of Alcohol and Drug Abuse Patient Records regulations: The Federal rules restrict any use of the information to criminally investigate or prosecute any alcohol or drug abuse patient.[facility] HospitalIn the event this information is protected by the Federal Confidentiality of Alcohol and Drug Abuse Patient Records regulations: The Federal rules restrict any use of the information to criminally investigate or prosecute any alcohol or drug abuse patient.[facility] HospitalIn the event this information is protected by the Federal Confidentiality of Alcohol and Drug Abuse Patient Records regulations: The Federal rules restrict any use of the information to criminally investigate or prosecute any alcohol or drug abuse patient.[facility] HospitalIn the event this information is protected by the Federal Confidentiality of Alcohol and Drug Abuse Patient Records regulations: The Federal rules restrict any use of the information to criminally investigate or prosecute any alcohol or drug abuse patient.[facility] HospitalIn the event this information is protected by the Federal Confidentiality of Alcohol and Drug Abuse Patient Records regulations: The Federal rules restrict any use of the information to criminally investigate or prosecute any alcohol or drug abuse patient.[facility] HospitalIn the event this information is protected by the Federal Confidentiality of Alcohol and Drug Abuse Patient Records regulations: The Federal rules restrict any use of the information to criminally investigate or prosecute any alcohol or drug abuse patient.[facility] HospitalIn the event this information is protected by the Federal Confidentiality of Alcohol and Drug Abuse Patient Records regulations: The Federal rules restrict any use of the information to criminally investigate or prosecute any alcohol or drug abuse patient.[facility] HospitalIn the event this information is protected by the Federal Confidentiality of Alcohol and Drug Abuse Patient Records regulations: The Federal rules restrict any use of the information to criminally investigate or prosecute any alcohol or drug abuse patient.[facility] HospitalIn the event this information is protected by the Federal Confidentiality of Alcohol and Drug Abuse Patient Records regulations: The Federal rules restrict any use of the information to criminally investigate or prosecute any alcohol or drug abuse patient.[facility] HospitalIn the event this information is protected by the Federal Confidentiality of Alcohol and Drug Abuse Patient Records regulations: The Federal rules restrict any use of the information to criminally investigate or prosecute any alcohol or drug abuse patient.[facility] HospitalIn the event this information is protected by the Federal Confidentiality of Alcohol and Drug Abuse Patient Records regulations: The Federal rules restrict any use of the information to criminally investigate or prosecute any alcohol or drug abuse patient.[facility] HospitalIn the event this information is protected by the Federal Confidentiality of Alcohol and Drug Abuse Patient Records regulations: The Federal rules restrict any use of the information to criminally investigate or prosecute any alcohol or drug abuse patient.[facility] HospitalIn the event this information is protected by the Federal Confidentiality of Alcohol and Drug Abuse Patient Records regulations: The Federal rules restrict any use of the information to criminally investigate or prosecute any alcohol or drug abuse patient.[facility] HospitalIn the event this information is protected by the Federal Confidentiality of Alcohol and Drug Abuse Patient Records regulations: The Federal rules restrict any use of the information to criminally investigate or prosecute any alcohol or drug abuse patient.[facility] HospitalIn the event this information is protected by the Federal Confidentiality of Alcohol and Drug Abuse Patient Records regulations: The Federal rules restrict any use of the information to criminally investigate or prosecute any alcohol or drug abuse patient.[facility] HospitalIn the event this information is protected by the Federal Confidentiality of Alcohol and Drug Abuse Patient Records regulations: The Federal rules restrict any use of the information to criminally investigate or prosecute any alcohol or drug abuse patient.[facility] HospitalIn the event this information is protected by the Federal Confidentiality of Alcohol and Drug Abuse Patient Records regulations: The Federal rules restrict any use of the information to criminally investigate or prosecute any alcohol or drug abuse patient.[facility] HospitalIn the event this information is protected by the Federal Confidentiality of Alcohol and Drug Abuse Patient Records regulations: The Federal rules restrict any use of the information to criminally investigate or prosecute any alcohol or drug abuse patient.[facility] HospitalIn the event this information is protected by the Federal Confidentiality of Alcohol and Drug Abuse Patient Records regulations: The Federal rules restrict any use of the information to criminally investigate or prosecute any alcohol or drug abuse patient.[facility] HospitalIn the event this information is protected by the Federal Confidentiality of Alcohol and Drug Abuse Patient Records regulations: The Federal rules restrict any use of the information to criminally investigate or prosecute any alcohol or drug abuse patient.[facility] HospitalIn the event this information is protected by the Federal Confidentiality of Alcohol and Drug Abuse Patient Records regulations: The Federal rules restrict any use of the information to criminally investigate or prosecute any alcohol or drug abuse patient.[facility] HospitalIn the event this information is protected by the Federal Confidentiality of Alcohol and Drug Abuse Patient Records regulations: The Federal rules restrict any use of the information to criminally investigate or prosecute any alcohol or drug abuse patient.[facility] HospitalIn the event this information is protected by the Federal Confidentiality of Alcohol and Drug Abuse Patient Records regulations: The Federal rules restrict any use of the information to criminally investigate or prosecute any alcohol or drug abuse patient.[facility] HospitalIn the event this information is protected by the Federal Confidentiality of Alcohol and Drug Abuse Patient Records regulations: The Federal rules restrict any use of the information to criminally investigate or prosecute any alcohol or drug abuse patient.[facility] HospitalIn the event this information is protected by the Federal Confidentiality of Alcohol and Drug Abuse Patient Records regulations: The Federal rules restrict any use of the information to criminally investigate or prosecute any alcohol or drug abuse patient.[facility] Reason for Visit (unrecogniz ed section and content) Reason Comments Radiology CT Specialty Diagnoses / Procedures Referred By Contac t Referred To Contact CT IMAGING Diagnoses 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) Procedures CT CHEST W IVCON DIAGNOSTIC COMPUTED TOMOGRAPHY THORAX W/CONTRAST Grace Bess MD [address] [place] [address] [address] [place] [address] Referral ID Status Reason Start Date Expiration Date V isits Requested Visits Authorized [id number] Closed Auto-Generate d Referral 05/26/2023 06/03/2024 1 1 Reason Comments Radiology NM Referral ID Status Reason Start Date Expiration Date V isits Requested Visits Authorized [id number] Closed Auto-Generate d Referral 08/16/2023 08/31/2024 1 [...] Comments Benefits Investigation Reason Comments Care Coordination Topographical Drafter referral Reason Comments Nutrition Assessment Reason Comments Care Coordination Antiemetics transfer red to [facility] in [place] Reason Comments Care Coordination Follow up call Reason Comments Care Coordination C1D1 treatment follo w up call Reason Comments Pancreatic Cancer 1 week follow Reason Comments Pancreatic Cancer Reason Comments Nutrition Counseling Specialty Diagnoses / Procedures Referred By Riaz jordan Referred To Contact Diagnoses 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) Grace Bess MD [address] [place] [address] [address] [address] Referral ID Status Reason Start Date Expiration Date V isits Requested Visits Authorized [id number] Authorized 02/22/2022 05/23/2022 99 99 Reason Comments [...] Date/Time Procedures LAB/PORT Grace Bess MD [address] [place] [address] Luis Miguel [place] [address] [place] [address] Referral ID Status Reason Start Date Expiration Date V isits Requested Visits Authorized [id number] Authorized 09/28/2022 05/21/2023 99 99 Reason Comments [...] This Date/Time Procedures LAB/PORT Grace Bess MD [address] [place] [id number] Luis Miguel [place]gado [address] [place] [address] Reason Comments CVAD Access Reason Comments Care [...] Expiration Date V isits Requested Visits Authorized [id number] Authorized 05/24/2023 08/22/2023 99 99 Reason Comments [...] Expiration Date V isits Requested Visits Authorized [id number] Closed Auto-Generate d Referral 11/21/2023 11/29/2024 1 1 Reason Comments Radio Gen RMP Referral ID Status Reason Start Date Expiration Date V isits Requested Visits Authorized [id number] Closed Auto-Generate d Referral 11/10/2022 10/29/2023 1 1 Referral ID Status Reason Start Date Expiration Date V isits Requested Visits Authorized [id number] Closed Auto-Generate d Referral 07/25/2022 07/29/2023 1 1 Specialty Diagnoses / Procedures Referred By Contac t Referred To Contact CT IMAGING Diagnoses 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) Procedures CT ABD/PEL W IVCON CT ABD & PELVIS W/CONTRAST Grace Bess MD [address] [place] [address] [place] [address] Referral ID Status Reason Start Date Expiration Date V isits Requested Visits Authorized [id number] Closed Auto-Generate d Referral 06/01/2022 06/10/2023 1 [address] Referral ID Status Reason Start Date Expiration Date V isits Requested Visits Authorized [id number] Closed Auto-Generate d Referral 03/01/2022 03/24/2023 1 1 Specialty Diagnoses / Procedures Referred By Contac t Referred To Contact CT IMAGING Diagnoses Other chronic pancreatitis (HCC) Procedures CT PANCREAS W IVCON CT ABDOMEN W/[place] [address] [address] [facility] [address] [place] [address] [place] [address] Referral ID Status Reason Start Date Expiration Date V isits Requested Visits Authorized [id number] Closed Auto-Generate d Referral 07/21/2021 08/14/2022 1 1 Reason Comments Care Coordination CA 19.9 Reason Comments Follow-up [facility] stay admitted dx: pneumonia discharged home 03/26/24 with rx for levaquin Care Teams (unrecognized sec tion and content) Polysom Tech Relationship Specialty Start Date End Date Giovanni Salinas II [address] [place] [address] PCP - General Internal Medicine 11/29/19 César Leiva [address] [place] [address] Endocrinology 05/08/20 Polysom Tech Relationship Specialty Start Date End Date Giovanni Salinas II [address] [place] [address] PCP - General Internal Medicine 11/29/19 César Leiva Firas [address] [place] [address] Endocrinology 05/08/20 Polysom Tech Relationship Specialty Start Date End Date Giovanni Salinas II [address] [place] [address] PCP - General Internal Medicine 11/29/19 César Leiva Firjanel [address] [place] [address] Endocrinology 05/08/20 Polysom Tech Relationship Specialty Start Date End Date Giovanni Salinas II [address] [place] [address] PCP - General Internal Medicine 11/29/19 César Leiva [address] [place] [address] Endocrinology 05/08/20 Polysom Tech Relationship Specialty Start Date End Date Giovanni Salinas II [address] [place] [address] PCP - General Internal Medicine 11/29/19 César Leiva Firjanel [address] [place] [address] Endocrinology 05/08/20 Polysom Tech Relationship Specialty Start Date End Date Giovanni Salinas II [address] [place] [address] PCP - General Internal Medicine 11/29/19 César Leiva [address] [place] [address] Endocrinology 05/08/20 Polysom Tech Relationship Specialty Start Date End Date Giovanni Salinas II [address] [place] [address] PCP - General Internal Medicine 11/29/19 César Leiva [address] [place] [address] Endocrinology 05/08/20 Polysom Tech Relationship Specialty Start Date End Date Giovanni Salinas II [address] [place] [address] PCP - General Internal Medicine 11/29/19 César Leiva [address] [place] [address] Endocrinology 05/08/20 Polysom Tech Relationship Specialty Start Date End Date Giovanni Salinas II [address] [place] [address] PCP - General Internal Medicine 11/29/19 César Leiva [address] [place] [address] Endocrinology 05/08/20 Josephine Salomon, RN [address] [facility] [address] Specialty Blueprint Machine Operator Hematology/Oncology 03/04/22 Grace Bess MD [address] [facility] [place] [address] Physician Hematology/Oncology 03/04/22 Greta Wetzel, PA-C [address] [facility] [place] [address] Physician Animal Daycare Provider Hematology/Oncology 03/04/22 Polysom Tech Relationship Specialty Start Date End Date Giovanni Salinas Raul II [address] [place] [address] PCP - General Internal Medicine 11/29/19 [facility] [address] [facility] [address] [place] [address] Endocrinology 05/08/20 Josephine Salomon, RN [address] [facility] [place] [address] Specialty Blueprint Machine Operator Hematology/Oncology 03/04/22 Grace Bess MD [address] [facility] [place] [address] Physician Hematology/Oncology 03/04/22 Greta Wetzel PA-C [address] [facility] [place] [address] Physician Animal Daycare Provider Hematology/Oncology 03/04/22 Polysom Tech Relationship Specialty Start Date End Date Giovanni Salinas Raul II [address] [place] [address] PCP - General Internal Medicine 11/29/19 [facility] [address] [facility] [address] [place] [address] Endocrinology 05/08/20 Josephine Salomon RN [address] [facility] [place] [address] Specialty Blueprint Machine Operator Hematology/Oncology 03/04/22 Grace Bess MD [address] [facility] [place] [address] Physician Hematology/Oncology 03/04/22 Greta Wetzel PA-C [address] [facility] [place] [address] Physician Animal Daycare Provider Hematology/Oncology 03/04/22 Polysom Tech Relationship Specialty Start Date End Date Giovanni Salinas II [address] [place] [address] PCP - General Internal Medicine 11/29/19 [facility] [address] [place] [address] Endocrinology 05/08/20 Josephine Salomon RN [address] [facility] [place] [address] Specialty Blueprint Machine Operator Hematology/Oncology 03/04/22 Grace Bess MD [address] [place] [address] Physician Hematology/Oncology 03/04/22 Greta Wetzel, PALaurenC [address] [facility] [place] [address] Physician Animal Daycare Provider Hematology/Oncology 03/04/22 Polysom Tech Relationship Specialty Start Date End Date Giovanni Salinas II [address] [place] [address] PCP - General Internal Medicine 11/29/19 César Leiva [address] [place] [address] Endocrinology 05/08/20 Josephine Salomon RN [address] [facility] [place] [address] Specialty Blueprint Machine Operator Hematology/Oncology 03/04/22 Grace Bess MD [address] [facility] [place] [address] Physician Hematology/Oncology 03/04/22 Greta Wetzel PA-C [address] [facility] [address] Physician Animal Daycare Provider Hematology/Oncology 03/04/22 Polysom Tech Relationship Specialty Start Date End Date Giovanni Salinas Raul II [address] [place] [address] PCP - General Internal Medicine 11/29/19 [facility] [address] [place] [address] Endocrinology 05/08/20 Josephine Salomon RN [address] [facility] [place] [place] [address] Specialty Blueprint Machine Operator Hematology/Oncology 03/04/22 Grace Bess MD [address] [place] [address] Physician Hematology/Oncology 03/04/22 Greta Wetzel PA-C [address] [facility] [place] [address] Physician Animal Daycare Provider Hematology/Oncology 03/04/22 Polysom Tech Relationship Specialty Start Date End Date SalinasGiovanni II [address] [place] [address] PCP - General Internal Medicine 11/29/19 Cali ailyn Firjanel [address] [place] [address] Endocrinology 05/08/20 Josephine Salomon RN [address] [facility] [place] [place] [address] Specialty Blueprint Machine Operator Hematology/Oncology 03/04/22 Grace Bess MD [address] [place] [address] Physician Hematology/Oncology 03/04/22 Greta Wetzel PA-C [address] [facility] [place] [address] Physician Animal Daycare Provider Hematology/Oncology 03/04/22 Polysom Tech Relationship Specialty Start Date End Date Salinas Giovanni B II [address] [place] [address] PCP - General Internal Medicine 11/29/19 [facility] Fir [address] [place] [address] Endocrinology 05/08/20 Josephine Salomon RN [address] [facility] [place] [address] Specialty Blueprint Machine Operator Hematology/Oncology 03/04/22 Grace Bess MD [address] [place] [address] Physician Hematology/Oncology 03/04/22 Greta Wetzel PA-C [address] [facility] [address] Physician Animal Daycare Provider Hematology/Oncology 03/04/22 Polysom Tech Relationship Specialty Start Date End Date Giovanni Salinas II [address] [place] [address] PCP - General Internal Medicine 11/29/19 [facility] [address] [place] [address] Endocrinology 05/08/20 Josephine Salomon RN [address] [facility] [address] Specialty Blueprint Machine Operator Hematology/Oncology 03/04/22 Grace Bess MD [address] [place] [address] Physician Hematology/Oncology 03/04/22 Greta Wetzel PA-C [address] [facility] [place] [address] Physician Animal Daycare Provider Hematology/Oncology 03/04/22 Polysom Tech Relationship Specialty Start Date End Date Giovanni Salinas II [address] [facility] [address] [place] [address] PCP - General Internal Medicine 11/29/19 César Leiva Firas [address] [place] [address] Endocrinology 05/08/20 Josephine Salomon RN [address] [facility] [place] [address] Specialty Blueprint Machine Operator Hematology/Oncology 03/04/22 Grace Bess MD [address] [place] [address] Physician Hematology/Oncology 03/04/22 Greta Wetzel PA-C [address] [facility] [place] [address] Physician Animal Daycare Provider Hematology/Oncology 03/04/22 Polysom Tech Relationship Specialty Start Date End Date Giovanni Salinas II [address] [facility] [address] [place] [address] PCP - General Internal Medicine 11/29/19 César Leiva Firas [address] [place] [address] Endocrinology 05/08/20 Josephine Salomon RN [address] [facility] [place] [place] [address] Specialty Blueprint Machine Operator Hematology/Oncology 03/04/22 Grace Bess MD [address] [place] [address] Physician Hematology/Oncology 03/04/22 Greta Wetzel PA-C [address] [facility] [place] [address] Physician Animal Daycare Provider Hematology/Oncology 03/04/22 Polysom Tech Relationship Specialty Start Date End Date Giovanni Salinas II [address] [facility] [address] [place] [address] PCP - General Internal Medicine 11/29/19 César Leiva [address] [place] [address] Endocrinology 05/08/20 Josephine Salomon RN [address] [facility] [place] [address] Specialty Blueprint Machine Operator Hematology/Oncology 03/04/22 Grace Bess MD [address] [facility] [place] [address] Physician Hematology/Oncology 03/04/22 Greta Wetzel PA-C [address] [facility] [place] [place] [address] Physician Animal Daycare Provider Hematology/Oncology 03/04/22 Polysom Tech Relationship Specialty Start Date End Date Giovanni Salinas II [address] [facility] [address] [place] [address] PCP - General Internal Medicine 11/29/19 César Leiva [address] [place] [address] Endocrinology 05/08/20 Josephine Slaomon RN [address] [facility] [place] [address] Specialty Blueprint Machine Operator Hematology/Oncology 03/04/22 Grace Bess MD [address] [place] [address] Physician Hematology/Oncology 03/04/22 Greta Wetzel PA-C [address] [facility] [place] [address] Physician Animal Daycare Provider Hematology/Oncology 03/04/22 Polysom Tech Relationship Specialty Start Date End Date Giovanni Salinas II [address] [facility] [address] [place] [address] PCP - General Internal Medicine 11/29/19 César Leiva [address] [place] [address] Endocrinology 05/08/20 Josephine Salomon RN [address] [facility] [place] [address] Specialty Blueprint Machine Operator Hematology/Oncology 03/04/22 Grace Bess MD [address] [place] [address] Physician Hematology/Oncology 03/04/22 Greta Wetzel PA-C [address] [facility] [address] Physician Animal Daycare Provider Hematology/Oncology 03/04/22 Polysom Tech Relationship Specialty Start Date End Date Giovanni Salinas II [address] [facility] [address] [place] [address] PCP - General Internal Medicine 11/29/19 César Leiva [address] [place] [address] Endocrinology 05/08/20 Josephine Salomon RN [address] [facility] [place] [address] Specialty Blueprint Machine Operator Hematology/Oncology 03/04/22 Grace Bess MD [address] [place] [address] Physician Hematology/Oncology 03/04/22 Greta Wetzel PA-C [address] [facility] [place] [address] Physician Animal Daycare Provider Hematology/Oncology 03/04/22 Polysom Tech Relationship Specialty Start Date End Date Giovanni Salinas II [address] [place] [address] PCP - General Internal Medicine 11/29/19 César Leiva [address] [place] [address] Endocrinology 05/08/20 Josephine Salomon RN [address] [facility] [place] [address] Specialty Blueprint Machine Operator Hematology/Oncology 03/04/22 Grace Bess MD [address] [facility] [place] [address] Physician Hematology/Oncology 03/04/22 Greta Wetzel PA-C [address] [facility] [place] [address] Physician Animal Daycare Provider Hematology/Oncology 03/04/22 Polysom Tech Relationship Specialty Start Date End Date Giovanni Salinas II [address] [place] [address] PCP - General Internal Medicine 11/29/19 César Leiva [address] [place] [address] Endocrinology 05/08/20 Josephine Salomon RN [address] [facility] [place] [address] Specialty Blueprint Machine Operator Hematology/Oncology 03/04/22 Grace Bess MD [address] [place] [address] Physician Hematology/Oncology 03/04/22 Greta Wetzel PA-C [address] [facility] [place] [address] Physician Animal Daycare Provider Hematology/Oncology 03/04/22 Polysom Tech Relationship Specialty Start Date End Date Giovanni Salinas II [address] [place] [address] PCP - General Internal Medicine 11/29/19 César Leiva MD [address] [place] [address] Endocrinology 05/08/20 Josephine Salomon RN [address] [facility] [place] [address] Specialty Blueprint Machine Operator Hematology/Oncology 03/04/22 Grace Bess MD [address] [place] [address] Physician Hematology/Oncology 03/04/22 Greta Wetzel PA-C [address] [facility] [place] [address] Physician Animal Daycare Provider Hematology/Oncology 03/04/22 Polysom Tech Relationship Specialty Start Date End Date Giovanni Salinas II [address] [place] [address] PCP - General Internal Medicine 11/29/19 César Leiva MD [address] [place] [address] Endocrinology 05/08/20 Josephine Salomon RN [address] [facility] [address] Specialty Blueprint Machine Operator Hematology/Oncology 03/04/22 Grace Bess MD [address] [place] [address] Physician Hematology/Oncology 03/04/22 Greta Wetzel, PALaurenC [address] [place] [address] [place] [address] Physician Animal Daycare Provider Hematology/Oncology 03/04/22 Polysom Tech Relationship Specialty Start Date End Date Giovanni Salinas II [address] [place] [address] PCP - General Internal Medicine 11/29/19 César Leiva MD [address] [place] [address] Endocrinology 05/08/20 Josephine Salomon RN [address] [facility] [place] [address] Specialty Blueprint Machine Operator Hematology/Oncology 03/04/22 Grace Bess MD [address] [place] [address] Physician Hematology/Oncology 03/04/22 Greta Wetzel PA-C [address] [facility] [place] [address] Physician Animal Daycare Provider Hematology/Oncology 03/04/22 Polysom Tech Relationship Specialty Start Date End Date Giovanni Salinas II [address] [place] [address] PCP - General Internal Medicine 11/29/19 César Leiva MD [address] [place] [address] Endocrinology 05/08/20 Josephine Salomon RN [address] [facility] [place] [address] Specialty Blueprint Machine Operator Hematology/Oncology 03/04/22 Grace Bess MD [address] [place] [address] Physician Hematology/Oncology 03/04/22 Greta Wetzel PA-C [address] [facility] [place] [address] Physician Animal Daycare Provider Hematology/Oncology 03/04/22 Polysom Tech Relationship Specialty Start Date End Date Giovanni Salinas II [address] [place] [address] PCP - General Internal Medicine 11/29/19 César Leiva MD [address] [place] [address] Endocrinology 05/08/20 Josephine Salomon RN [address] [facility] [place] [address] Specialty Blueprint Machine Operator Hematology/Oncology 03/04/22 Grace Bess MD [address] [place] [address] Physician Hematology/Oncology 03/04/22 Greta Wetzel PA-C [address] [facility] [place] [address] Physician Animal Daycare Provider Hematology/Oncology 03/04/22 Polysom Tech Relationship Specialty Start Date End Date Giovanni Salinas II [address] [place] [address] PCP - General Internal Medicine 11/29/19 César Leiva MD [address] [place] [address] Endocrinology 05/08/20 Josephine Salomon RN [address] [facility] [place] [address] Specialty Blueprint Machine Operator Hematology/Oncology 03/04/22 Grace Bess MD [address] [place] [address] Physician Hematology/Oncology 03/04/22 Greta Wetzel PA-C [address] [facility] [place] [address] Physician Animal Daycare Provider Hematology/Oncology 03/04/22 Polysom Tech Relationship Specialty Start Date End Date Giovanni Salinas II [address] [place] [address] PCP - General Internal Medicine 11/29/19 César Leiva MD [address] [place] [address] Endocrinology 05/08/20 Josephine Salomon RN [address] [facility] [place] [place] [address] Specialty Blueprint Machine Operator Hematology/Oncology 03/04/22 Grace Bess MD [address] [place] [address] Physician Hematology/Oncology 03/04/22 Greta Wetzel PA-C [address] [facility] [address] Physician Animal Daycare Provider Hematology/Oncology 03/04/22 Polysom Tech Relationship Specialty Start Date End Date Giovanni Salinas II [address] [place] [address] PCP - General Internal Medicine 11/29/19 César Leiva MD [address] [place] [address] Endocrinology 05/08/20 Josephine Salomon RN [address] [facility] [place] [place] [address] Specialty Blueprint Machine Operator Hematology/Oncology 03/04/22 Grace Bess MD [address] [place] [address] Physician Hematology/Oncology 03/04/22 Greta Wetzel PA-C [address] [facility] [address] Physician Animal Daycare Provider Hematology/Oncology 03/04/22 Polysom Tech Relationship Specialty Start Date End Date Giovanni Salinas II [address] [place] [address] PCP - General Internal Medicine 11/29/19 César Leiva MD [address] [place] [address] Endocrinology 05/08/20 Josephine Salomon RN [address] [facility] [address] Specialty Blueprint Machine Operator Hematology/Oncology 03/04/22 Grace Bess MD [address] [place] [address] Physician Hematology/Oncology 03/04/22 Greta Wetzel PA-C [address] [facility] [address] Physician Animal Daycare Provider Hematology/Oncology 03/04/22 Polysom Tech Relationship Specialty Start Date End Date Giovanni Salinas II [address] [facility] [place] [address] PCP - General Internal Medicine 11/29/19 César Leiva MD [address] [place] [address] Endocrinology 05/08/20 Josephine Salomon, RN [address] [facility] [place] [address] Specialty Blueprint Machine Operator Hematology/Oncology 03/04/22 Grace Bess MD [address] [place] [address] Physician Hematology/Oncology 03/04/22 Greta Wetzel PA-C [address] [facility] [place] [place] [address] Physician Animal Daycare Provider Hematology/Oncology 03/04/22 Polysom Tech Relationship Specialty Start Date End Date Giovanni Salinas II [address] [address] PCP - General Internal Medicine 11/29/19 César Leiva MD [address] [place] [address] Endocrinology 05/08/20 Josephine Salomon RN [address] [facility] [place] [address] Specialty Blueprint Machine Operator Hematology/Oncology 03/04/22 Grace Bess MD [address] [place] [address] [place] [address] Physician Hematology/Oncology 03/04/22 Greta Wetzel PA-C [address] [facility] [place] [place] [address] Physician Animal Daycare Provider Hematology/Oncology 03/04/22 Polysom Tech Relationship Specialty Start Date End Date Giovanni Salinas II [address] [place] [address] PCP - General Internal Medicine 11/29/19 César Leiva MD [address] [place] [address] Endocrinology 05/08/20 Josephine Salomon RN [address] [facility] [place] [place] [address] Specialty Blueprint Machine Operator Hematology/Oncology 03/04/22 Grace Bess MD [address] [place] [address] Physician Hematology/Oncology 03/04/22 Greta Wetzel PA-C [address] [facility] [place] [place] [address] Physician Animal Daycare Provider Hematology/Oncology 03/04/22 Polysom Tech Relationship Specialty Start Date End Date SalinasGiovanni Raul MARTIN [address] [facility] [address] [place] [address] PCP - General Internal Medicine 11/29/19 César Leiva MD [address] [place] [address] Endocrinology 05/08/20 Josephine Salomon RN [address] [facility] [place] [place] [address] Specialty Blueprint Machine Operator Hematology/Oncology 03/04/22 Grace Bess MD [address] [facility] [place] [address] Physician Hematology/Oncology 03/04/22 Greta Wetzel PA-C [address] [facility] [place] [address] Physician Animal Daycare Provider Hematology/Oncology 03/04/22 Polysom Tech Relationship Specialty Start Date End Date Giovanni Salinas II [address] [facility] [address] [place] [address] PCP - General Internal Medicine 11/29/19 César Leiva MD [address] [place] [address] Endocrinology 05/08/20 Josephine Salomon RN [address] [facility] [place] [address] Specialty Blueprint Machine Operator Hematology/Oncology 03/04/22 Grace Bess MD [address] [facility] [place] [address] Physician Hematology/Oncology 03/04/22 Greta Wetzel PA-C [address] [facility] [place] [address] Physician Animal Daycare Provider Hematology/Oncology 03/04/22 Polysom Tech Relationship Specialty Start Date End Date Giovanni Salinas II [address] [facility] [address] [place] [address] PCP - General Internal Medicine 11/29/19 César Leiva MD [address] [place] [address] Endocrinology 05/08/20 Josephine Salomon RN [address] [facility] [place] [address] Specialty Blueprint Machine Operator Hematology/Oncology 03/04/22 Grace Bess MD [address] [facility] [place] [address] Physician Hematology/Oncology 03/04/22 Greta Wetzel PA-C [address] [facility] [place] [address] Physician Animal Daycare Provider Hematology/Oncology 03/04/22 Polysom Tech Relationship Specialty Start Date End Date Giovanni Salinas II [address] [place] [address] PCP - General Internal Medicine 11/29/19 César Leiva MD [address] [place] [address] Endocrinology 05/08/20 Josephine Salomon, RN [address] [facility] [place] [address] Specialty Blueprint Machine Operator Hematology/Oncology 03/04/22 Grace Bess MD [address] [facility] [place] [address] Physician Hematology/Oncology 03/04/22 Greta Wetzel PA-C [address] [facility] [place] [address] Physician Animal Daycare Provider Hematology/Oncology 03/04/22 Polysom Tech Relationship Specialty Start Date End Date Giovanni Salinas II [address] [place] [address] PCP - General Internal Medicine 11/29/19 César Leiva MD [address] [place] [address] Endocrinology 05/08/20 Josephine Salomon RN [address] [facility] [place] [address] Specialty Blueprint Machine Operator Hematology/Oncology 03/04/22 Grace Bess MD [address] [facility] [place] [address] Physician Hematology/Oncology 03/04/22 Greta Wetzel PA-C [address] [place] [address] [place] [address] Physician Animal Daycare Provider Hematology/Oncology 03/04/22 Team Status: Active Member Role Status Dates Giovanni Salinas II MD Primary Care Provider Active Team Status: Inactive Member Role Status Dates Giovanni Salinas II MD Primary Care Provider Active Jemma Padilla APRN Emergency Provider Active Polysom Tech Relationship Specialty Start Date End Date Giovanni Salinas II [address] [facility] [address] [place] [address] PCP - General Internal Medicine 11/29/19 César Leiva MD [address] [place] [address] Endocrinology 05/08/20 Josephine Salomon RN [address] [facility] [address] Specialty Blueprint Machine Operator Hematology/Oncology 03/04/22 Grace Bess MD [address] [place] [address] [place] [address] Physician Hematology/Oncology 03/04/22 Greta Wetzel PA-C [address] [place] [address] [place] [address] Physician Animal Daycare Provider Hematology/Oncology 03/04/22 Polysom Tech Relationship Specialty Start Date End Date Giovanni Salinas II [address] [facility] [address] [place] [address] PCP - General Internal Medicine 11/29/19 César Leiva MD [address] [place] [address] Endocrinology 05/08/20 Josephine Salomon RN [address] [facility] [place] [address] Specialty Blueprint Machine Operator Hematology/Oncology 03/04/22 Grace Bess MD [address] [place] [address] [place] [address] Physician Hematology/Oncology 03/04/22 Greta Wetzel PA-C [address] [facility] [place] [address] Physician Animal Daycare Provider Hematology/Oncology 03/04/22 Polysom Tech Relationship Specialty Start Date End Date Giovanni Salinas II, MD [address] [facility] [address] [place] [address] PCP - General Internal Medicine 11/29/19 César Leiva MD [address] [place] [address] Endocrinology 05/08/20 Josephine Salomon RN [address] [facility] [address] [place], [place] [address] Specialty Blueprint Machine Operator Hematology/Oncology 03/04/22 Grace Bess MD [address] [facility] [place] [address] Physician Hematology/Oncology 03/04/22 Greta Wetzel PA-C [address] [facility] [place] [address] Physician Animal Daycare Provider Hematology/Oncology 03/04/22 Polysom Tech Relationship Specialty Start Date End Date Giovanni Salinas II, MD [address] [place] [address] PCP - General Internal Medicine 11/29/19 César Leiva MD [address] [place] [address] Endocrinology 05/08/20 Josephine Salomon, RN [address] [facility] [place] [address] Specialty Blueprint Machine Operator Hematology/Oncology 03/04/22 Grace Bess MD [address] [facility] [place] [address] Physician Hematology/Oncology 03/04/22 Greta Wetzel PA-C [address] [facility] [place] [address] Physician Animal Daycare Provider Hematology/Oncology 03/04/22 Polysom Tech Relationship Specialty Start Date End Date Giovanni Salinas II, MD [address] [place] [address] PCP - General Internal Medicine 11/29/19 César Leiva MD [address] [place] [address] Endocrinology 05/08/20 Josephine Salomon RN [address] [facility] [place] [address] Specialty Blueprint Machine Operator Hematology/Oncology 03/04/22 Grace Bess MD [address] [facility] [place] [address] Physician Hematology/Oncology 03/04/22 Greta Wetzel PA-C [address] [place] [address] [place] [address] Physician Animal Daycare Provider Hematology/Oncology 03/04/22 Polysom Tech Relationship Specialty Start Date End Date Giovanni Salinas II, MD [address] [address] PCP - General Internal Medicine 11/29/19 César Leiva MD [address] [place] [address] Endocrinology 05/08/20 Josephine Salomon RN [address] [facility] [address] Specialty Blueprint Machine Operator Hematology/Oncology 03/04/22 Grace Bess MD [address] [place] [address] [place] [address] Physician Hematology/Oncology 03/04/22 Greta Wetzel PA-C [address] [place] [address] [place] [address] Physician Animal Daycare Provider Hematology/Oncology 03/04/22 Polysom Tech Relationship Specialty Start Date End Date Giovanni Salinas II, MD [address] [place] [address] PCP - General Internal Medicine 11/29/19 César Leiva MD [address] [place] [address] Endocrinology 05/08/20 Josephine Salomon, RN [address] [facility] [place] [place] [address] Specialty Blueprint Machine Operator Hematology/Oncology 03/04/22 Grace Bess MD [address] [place] [address] Physician Hematology/Oncology 03/04/22 Greta Wetzel PA-C [address] [place] [address] [place] [address] Physician Animal Daycare Provider Hematology/Oncology 03/04/22 Polysom Tech Relationship Specialty Start Date End Date Giovanni Salinas II, MD [address] [place] [address] PCP - General Internal Medicine 11/29/19 César Leiva MD [address] [place] [address] Endocrinology 05/08/20 Josephine Salomon RN [address] [facility] [place] [address] Specialty Blueprint Machine Operator Hematology/Oncology 03/04/22 Grace Bess MD [address] [facility] [place] [address] Physician Hematology/Oncology 03/04/22 Greta Wetzel PA-C [address] [facility] [place] [address] Physician Animal Daycare Provider Hematology/Oncology 03/04/22 Polysom Tech Relationship Specialty Start Date End Date Giovanni Salinas II, MD [address] [place] [address] PCP - General Internal Medicine 11/29/19 César Leiva MD [address] [place] [address] Endocrinology 05/08/20 Josephine Salomon RN [address] [facility] [address] Specialty Blueprint Machine Operator Hematology/Oncology 03/04/22 Grace Bess MD [address] [place] [address] Physician Hematology/Oncology 03/04/22 Greta Wetzel PA-C [address] [facility] [place] [place] [address] Physician Animal Daycare Provider Hematology/Oncology 03/04/22 Polysom Tech Relationship Specialty Start Date End Date Giovanni Salinas II, MD [address] [facility] [address] [place] [address] PCP - General Internal Medicine 11/29/19 César Leiva MD [address] [place] [address] Endocrinology 05/08/20 Josephine Salomon RN [address] [facility] [place] [address] Specialty Blueprint Machine Operator Hematology/Oncology 03/04/22 Grace Bess MD [address] [place] [address] Physician Hematology/Oncology 03/04/22 Greta Wetzel PA-C [address] [facility] [place] [address] Physician Animal Daycare Provider Hematology/Oncology 03/04/22 Polysom Tech Relationship Specialty Start Date End Date Giovanni Salinas II, MD [address] [place] [place] [address] PCP - General Internal Medicine 11/29/19 Cés[place] [address] [place] [address] [address] [place] [id number] Endocrinology 05/08/20 Josephine Salomon, LUIS ANTONIO [address] [facility] [place] [address] Specialty Blueprint Machine Operator Hematology/Oncology 03/04/22 Grace Bess MD [address] [place] [address] Physician Hematology/Oncology 03/04/22 Greta Wetzel PA-C [address] [facility] [place] [address] Physician Animal Daycare Provider Hematology/Oncology 03/04/22 Polysom Tech Relationship Specialty Start Date End Date Giovanni Salinas II, MD [address] [place] [place] [address] PCP - General Internal Medicine 11/29/19 César Leiva MD [address] [place] [address] Endocrinology 05/08/20 Josephine Salomon, RN [address] [facility] [place] [address] Specialty Blueprint Machine Operator Hematology/Oncology 03/04/22 Grace Bess MD 417 [facility] [place] [address] Physician Hematology/Oncology 03/04/22 Greta Wetzel PA-C [address] [place] [address] [place] [address] Physician Animal Daycare Provider Hematology/Oncology 03/04/22 Polysom Tech Relationship Specialty Start Date End Date Giovanni Salinas II, MD [address] [facility] [address] [place] [address] PCP - General Internal Medicine 11/29/19 César Leiva MD [address] [place] [address] Endocrinology 05/08/20 Josephine Salomon RN [address] [facility] [place] [address] Specialty Blueprint Machine Operator Hematology/Oncology 03/04/22 Grace Bess MD 417 [facility] [place] [address] Physician Hematology/Oncology 03/04/22 Greta Wetzel PA-C [address] [facility] [place] [address] Physician Animal Daycare Provider Hematology/Oncology 03/04/22 Polysom Tech Relationship Specialty Start Date End Date Giovanni Salinas II, MD [address] [place] [place] [address] PCP - General Internal Medicine 11/29/19 César Leiva MD [address] [place] [address] Endocrinology 05/08/20 Josephine Salomon, RN [address] [facility] [place] [address] Specialty Blueprint Machine Operator Hematology/Oncology 03/04/22 Grace Bess MD [address] [place] [address] Physician Hematology/Oncology 03/04/22 Greta Wetzel PA-C [address] [facility] [place] [address] Physician Animal Daycare Provider Hematology/Oncology 03/04/22 Polysom Tech Relationship Specialty Start Date End Date Giovanni Salinas II, MD [address] [place] [place] [address] PCP - General Internal Medicine 11/29/19 César Leiva MD [address] [place] [address] Endocrinology 05/08/20 Josephine Salomon, RN [address] [facility] [address] [place], [place] [address] Specialty Blueprint Machine Operator Hematology/Oncology 03/04/22 Grace Bess MD [address] [place] [address] Physician Hematology/Oncology 03/04/22 Greta Wetzel PA-C [address] [place] [address] [place] [address] Physician Animal Daycare Provider Hematology/Oncology 03/04/22 Polysom Tech Relationship Specialty Start Date End Date Giovanni Salinas II, MD [address] [place] [place] [address] PCP - General Internal Medicine 11/29/19 César Leiva MD [address] [place] [address] Endocrinology 05/08/20 Josephine Salomon, RN [address] [facility] [place] [address] Specialty Blueprint Machine Operator Hematology/Oncology 03/04/22 Grace Bess MD 417 [facility] [place] [address] Physician Hematology/Oncology 03/04/22 Greta Wetzel PA-C [address] [facility] [place] [address] Physician Animal Daycare Provider Hematology/Oncology 03/04/22 Polysom Tech Relationship Specialty Start Date End Date Giovanni Salinas II, MD [address] [place] [place] [address] PCP - General Internal Medicine 11/29/19 César Leiva MD [address] [place] [address] Endocrinology 05/08/20 Josephine Salomon RN [address] [facility] [address] Specialty Blueprint Machine Operator Hematology/Oncology 03/04/22 Grace Bess MD 417 [facility] [place] [address] Physician Hematology/Oncology 03/04/22 Greta Wetzel PA-C [address] [facility] [address] Physician Animal Daycare Provider Hematology/Oncology 03/04/22 Polysom Tech Relationship Specialty Start Date End Date Giovanni Salinas II, MD [address] [place] [place] [address] PCP - General Internal Medicine 11/29/19 César Leiva MD [address] [place] [address] [address] [place] [id number] Endocrinology 05/08/20 Josephine Salomon RN [address] [facility] [place] [address] Specialty Blueprint Machine Operator Hematology/Oncology 03/04/22 Grace Bess MD [address] [place] [address] Physician Hematology/Oncology 03/04/22 Greta Wetzel PA-C [address] [facility] [address] Physician Animal Daycare Provider Hematology/Oncology 03/04/22 Polysom Tech Relationship Specialty Start Date End Date Giovanni Salinas II, MD [address] [place] [place] [address] PCP - General Internal Medicine 11/29/19 César Leiva MD [address] [place] [address] Endocrinology 05/08/20 Josephine Salomon, LUIS ANTONIO [address] [facility] [place] [address] Specialty Blueprint Machine Operator Hematology/Oncology 03/04/22 Grace Bess MD [address] [facility] [place] [address] Physician Hematology/Oncology 03/04/22 Greta Wetzel PA-C [address] [facility] [place] [address] Physician Animal Daycare Provider Hematology/Oncology 03/04/22 Polysom Tech Relationship Specialty Start Date End Date Giovanni Salinas II, MD [address] [facility] [address] [place] [address] PCP - General Internal Medicine 11/29/19 César Leiva MD [address] [place] [address] Endocrinology 05/08/20 Josephine Salomon, LUIS ANTONIO [address] [facility] [place] [address] Specialty Blueprint Machine Operator Hematology/Oncology 03/04/22 Grace Bess MD [address] [place] [address] Physician Hematology/Oncology 03/04/22 Greta Wetzel PA-C [address] [facility] [address] [place], [place] [address]70 Physician Animal Daycare Provider Hematology/Oncology 03/04/22 Polysom Tech Relationship Specialty Start Date End Date Giovanni Salinas II, MD [address] [place] [place] [address] PCP - General Internal Medicine 11/29/19 César Leiva MD [address] [place] [address] Endocrinology 05/08/20 Josephine Salomon RN [address] [facility] [place] [address] Specialty Blueprint Machine Operator Hematology/Oncology 03/04/22 Grace Bess MD [address] [facility] [place] [address] Physician Hematology/Oncology 03/04/22 Greta Wetzel PA-C [address] [facility] [place] [address] Physician Animal Daycare Provider Hematology/Oncology 03/04/[address] [facility] [place] [address] Registered Dietitian Nutrition 06/07/23 Polysom Tech Relationship Specialty Start Date End Date Giovanni Salinas II, MD [address] [place] [address] [place] [address] PCP - General Internal Medicine 11/29/19 César Leiva MD [address] [place] [address] Endocrinology 05/08/20 Josephine Salomon RN [address] [facility] [address] Specialty Blueprint Machine Operator Hematology/Oncology 03/04/22 Grace Bess MD 417 [facility] [place] [address] Physician Hematology/Oncology 03/04/22 Greta Wetzel PA-C [address] [place] [address] [place] [address] Physician Animal Daycare Provider Hematology/Oncology 03/04/[address] [place] [address] [place] [address] Registered Dietitian Nutrition 06/07/23 Polysom Tech Relationship Specialty Start Date End Date Giovanni Sailnas II, MD [address] [facility] [address] [place] [address] PCP - General Internal Medicine 11/29/19 César Leiva MD [address] [facility] [address] [place] [address] Endocrinology 05/08/20 Josephine Salomon RN [address] [facility] [address] Specialty Blueprint Machine Operator Hematology/Oncology 03/04/22 Grace Bess MD [address] [place] [address] [place] [address] Physician Hematology/Oncology 03/04/22 Greta Wetzel PA-C [address] [place] [address] [place] [address] Physician Animal Daycare Provider Hematology/Oncology 03/04/[address] [place] [address] [place] [address] Registered Dietitian Nutrition 06/07/23 Polysom Tech Relationship Specialty Start Date End Date Giovanni Salinas II, MD [address] [place] [place] [address] PCP - General Internal Medicine 11/29/19 César Leiva MD [address] [facility] [address] [place] [address] Endocrinology 05/08/20 Josephine Salomon, RN [address] [facility] [address] [place], [place] 5542070 Specialty Blueprint Machine Operator Hematology/Oncology 03/04/22 Grace Bess MD [address] [place] [address] [place] [address] Physician Hematology/Oncology 03/04/22 Greta Wetzel PA-C [address] [place] [address] [place] [address] Physician Animal Daycare Provider Hematology/Oncology 03/04/[address] [place] [address] [place] [address] Registered Dietitian Nutrition 06/07/23 Polysom Tech Relationship Specialty Start Date End Date Giovanni Salinas MD [address] [place] [address] PCP - ACO Reach 10/13/22 Giovanni Salinas MD [address] [place] [address] PCP - General Internal Medicine 10/20/22 Polysom Tech Relationship Specialty Start Date End Date Giovanni Salinas II, MD [address] [place] [address] PCP - General Internal Medicine 11/29/19 César Leiva MD [address] [place] [address] Endocrinology 05/08/20 Josephine Salomon, RN [address] [facility] [place] [address] Specialty Blueprint Machine Operator Hematology/Oncology 03/04/22 Grace Bess MD [address] [facility] [place] [address] Physician Hematology/Oncology 03/04/22 Greta Wetzel PA-C [address] [facility] [place] [address] Physician Animal Daycare Provider Hematology/Oncology 03/04/[address] [facility] [address] Registered Dietitian Nutrition 06/07/23 Polysom Tech Relationship Specialty Start Date End Date Giovanni Salinas II, MD [address] [facility] [address] [place] [address] PCP - General Internal Medicine 11/29/19 César Leiva MD [address] [place] [address] Endocrinology 05/08/20 Josephine Salomon, RN [address] [facility] [place] [address] Specialty Blueprint Machine Operator Hematology/Oncology 03/04/22 Grace Bess MD 417 [facility] [place] [address] Physician Hematology/Oncology 03/04/22 Greta Wetzel PA-C [address] [facility] [address] Physician Animal Daycare Provider Hematology/Oncology 03/04/[address] [facility] [address] Registered Dietitian Nutrition 06/07/23 Polysom Tech Relationship Specialty Start Date End Date Giovanni Salinas II, MD [address] [facility] [address] [place] [address] PCP - General Internal Medicine 11/29/19 César Leiva MD [facility] [address] [place] [address] Endocrinology 05/08/20 Josephine Salomon, RN [address] [facility] [address] Specialty Blueprint Machine Operator Hematology/Oncology 03/04/22 Grace Bess MD 417 [facility] [place] [address] Physician Hematology/Oncology 03/04/22 Greta Wetzel PA-C [address] [facility] [address] Physician Animal Daycare Provider Hematology/Oncology 03/04/[address] [facility] [address] Registered Dietitian Nutrition 06/07/23 Polysom Tech Relationship Specialty Start Date End Date Giovanni Salinas II, MD [address] [place] [address] [place] [address] PCP - General Internal Medicine 11/29/19 César Leiva MD [address] [place] [address] Endocrinology 05/08/20 Josephine Salomon, LUIS ANTONIO [address] [facility] [address] Specialty Blueprint Machine Operator Hematology/Oncology 03/04/22 Grace Bess MD 417 [facility] [place] [address] Physician Hematology/Oncology 03/04/22 Greta Wetzel PA-C [address] [place] [address] [place] [address] Physician Animal Daycare Provider Hematology/Oncology 03/04/[address] [place] [address] [place] [address] Registered Dietitian Nutrition 06/07/23 Polysom Tech Relationship Specialty Start Date End Date Giovanni Salinas II, MD [address] [facility] [address] [place] [address] PCP - General Internal Medicine 11/29/19 César Leiva MD [address] [place] [address] Endocrinology 05/08/20 Josephine Salomon, LUIS ANTONIO [address] [facility] [address] Specialty Blueprint Machine Operator Hematology/Oncology 03/04/22 Grace Bess MD 417 [facility] [place] [address] Physician Hematology/Oncology 03/04/22 Greta Wetzel PA-C [address] [facility] [address] Physician Animal Daycare Provider Hematology/Oncology 03/04/[address] [facility] [address] Registered Dietitian Nutrition 06/07/23 Polysom Tech Relationship Specialty Start Date End Date Giovanni Salinas II, MD [address] [facility] [address] [place] [address] PCP - General Internal Medicine 11/29/19 César Leiva MD [address] [place] [address] Endocrinology 05/08/20 Josephine Salomon, RN [address] [facility] [address] Specialty Blueprint Machine Operator Hematology/Oncology 03/04/22 Grace Bess MD 417 [facility] [place] [address] Physician Hematology/Oncology 03/04/22 Greta Wetzel PA-C [address] [facility] [address] Physician Animal Daycare Provider Hematology/Oncology 03/04/[address] [facility] [address] Registered Dietitian Nutrition 06/07/23 Polysom Tech Relationship Specialty Start Date End Date Giovanni Salinas II, MD [address] [place] [address] PCP - General Internal Medicine 11/29/19 César Leiva MD [address] [place] [address] Endocrinology 05/08/20 Josephine Salomon, RN [address] [facility] [address] [place], [place] [address] Specialty Blueprint Machine Operator Hematology/Oncology 03/04/22 Grace Bess MD 417 [facility] [place] [address] Physician Hematology/Oncology 03/04/22 Greta Wetzel PA-C [address] [place] [address] [place] [address] Physician Animal Daycare Provider Hematology/Oncology 03/04/[address] [place] [address] [place] [address] Registered Dietitian Nutrition 06/07/23 Polysom Tech Relationship Specialty Start Date End Date Giovanni Salinas II, MD [address] [facility] [address] [place] [address] PCP - General Internal Medicine 11/29/19 César Leiva MD [address] [place] [address] Endocrinology 05/08/20 Josephine Salomon, RN [address] [facility] [place] [address] Specialty Blueprint Machine Operator Hematology/Oncology 03/04/22 Grace Bess MD 417 [facility] [place] [address] Physician Hematology/Oncology 03/04/22 Greta Wetzel PA-C [address] [facility] [address] Physician Animal Daycare Provider Hematology/Oncology 03/04/[address] [facility] [address] Registered Dietitian Nutrition 06/07/23 Polysom Tech Relationship Specialty Start Date End Date Giovanni Salinas II, MD [address] [facility] [address] [place] [address] PCP - General Internal Medicine 11/29/19 César Leiva MD [address] [place] [address] Endocrinology 05/08/20 Josephine Salomon, RN [address] [facility] [address] Specialty Blueprint Machine Operator Hematology/Oncology 03/04/22 Grace Bess MD 417 [facility] [place] [address] Physician Hematology/Oncology 03/04/22 Greta Wetzel PA-C [address] [facility] [address] Physician Animal Daycare Provider Hematology/Oncology 03/04/[address] [facility] [address] Registered Dietitian Nutrition 06/07/23 Polysom Tech Relationship Specialty Start Date End Date Giovanni Salinas II, MD [address] [place] [place] [address] PCP - General Internal Medicine 11/29/19 César Leiva MD [address] [place] [address] Endocrinology 05/08/20 Josephine Salomon RN [address] [facility] [place] [address] Specialty Blueprint Machine Operator Hematology/Oncology 03/04/22 Grace Bess MD [address] [address] Physician Hematology/Oncology 03/04/22 Greta Wetzel PA-C [address] [facility] [place] [address] Physician Animal Daycare Provider Hematology/Oncology 03/04/[address] [facility] [place] [address] Registered Dietitian Nutrition 06/07/23 Polysom Tech Relationship Specialty Start Date End Date Giovanni Salinas II, MD [address] [facility] [address] [place] [address] PCP - General Internal Medicine 11/29/19 César Leiva MD [address] [place] [address] Endocrinology 05/08/20 Josephine Salomon RN [address] [facility] [place] [address] Specialty Blueprint Machine Operator Hematology/Oncology 03/04/22 Grace Bess MD 417 [facility] [place] [address] Physician Hematology/Oncology 03/04/22 Greta Wetzel PA-C [address] [facility] [place] [place] [address] Physician Animal Daycare Provider Hematology/Oncology 03/04/[address] [place] [address] [place] [address] Registered Dietitian Nutrition 06/07/23 Polysom Tech Relationship Specialty Start Date End Date Giovanni Salinas II, MD [address] [facility] [address] [place] [address] PCP - General Internal Medicine 11/29/19 César Leiva MD [address] [place] [address] Endocrinology 05/08/20 Josephine Salomon, RN [address] [facility] [place] [address] Specialty Blueprint Machine Operator Hematology/Oncology 03/04/22 Grace Bess MD [address] [place] [address] [place] [id number] Physician Hematology/Oncology 03/04/22 Greta Wetzel PA-C [address] [facility] [place] [place] [address] Physician Animal Daycare Provider Hematology/Oncology 03/04/[address] [facility] [place] [address] Registered Dietitian Nutrition 06/07/23 Polysom Tech Relationship Specialty Start Date End Date Giovanni Salinas II, MD [address] [place] [address] PCP - General Internal Medicine 11/29/19 César Leiva MD [address] [place] [address] Endocrinology 05/08/20 Josephine Salomon RN [address] [facility] [place] [place] [address] Specialty Blueprint Machine Operator Hematology/Oncology 03/04/22 Grace Bess MD [address] [facility] [place] [address] Physician Hematology/Oncology 03/04/22 Greta Wetzel PA-C [address] [facility] [place] [address] Physician Animal Daycare Provider Hematology/Oncology 03/04/[address] [facility] [place] [address] Registered Dietitian Nutrition 06/07/23 Polysom Tech Relationship Specialty Start Date End Date Giovanni Salinas II, MD [address] [place] [address] PCP - General Internal Medicine 11/29/19 César Leiva MD [address] [place] [address] Endocrinology 05/08/20 Josephine Salomon RN [address] [facility] [place] [address] Specialty Blueprint Machine Operator Hematology/Oncology 03/04/22 Grace Bess MD 417 [facility] [place] [address] Physician Hematology/Oncology 03/04/22 Greta Wetzel PA-C [address] [place] [address] [place] [address] Physician Animal Daycare Provider Hematology/Oncology 03/04/[address] [place] [address] [place] [address] Registered Dietitian Nutrition 06/07/23 Polysom Tech Relationship Specialty Start Date End Date Giovanni Salinas II, MD [address] [facility] [address] [place] [address] PCP - General Internal Medicine 11/29/19 César Leiva MD [facility] [facility] [place] [address] Endocrinology 05/08/20 Josephine Salomon, RN [address] [facility] [place] [address] Specialty Blueprint Machine Operator Hematology/Oncology 03/04/22 Grace Bess MD 417 [facility] [place] [address] Physician Hematology/Oncology 03/04/22 Greta Wetzel PA-C [address] [place] [address] [place] [address] Physician Animal Daycare Provider Hematology/Oncology 03/04/[address] [facility] [place] [address] Registered Dietitian Nutrition 06/07/23 Polysom Tech Relationship Specialty Start Date End Date Giovanni Salinas II, MD [address] [facility] [address] [place] [address] PCP - General Internal Medicine 11/29/19 César Leiva MD [address] [place] [address] Endocrinology 05/08/20 Josephine Salomon RN [address] [facility] [address] Specialty Blueprint Machine Operator Hematology/Oncology 03/04/22 Grace Bess MD [address] [place] [address] [place] [address] Physician Hematology/Oncology 03/04/22 Greta Wetzel PA-C [address] [facility] [place] [address] Physician Animal Daycare Provider Hematology/Oncology 03/04/[address] [facility] [place] [place] [address] Registered Dietitian Nutrition 06/07/23 Polysom Tech Relationship Specialty Start Date End Date Giovanni Salinas II, MD [address] [facility] [address] [place] [address] PCP - General Internal Medicine 11/29/19 César Leiva MD [address] [place] [address] Endocrinology 05/08/20 Josephine Salomon RN [address] [facility] [address] Specialty Blueprint Machine Operator Hematology/Oncology 03/04/22 Grace Bess MD 417 [facility] [place] [address] Physician Hematology/Oncology 03/04/22 Greta Wetzel PA-C [address] [place] [address] [place] [address] Physician Animal Daycare Provider Hematology/Oncology 03/04/[address] [place] [address] [place] [address] Registered Dietitian Nutrition 06/07/23 Polysom Tech Relationship Specialty Start Date End Date Giovanni Salinas II, MD [address] [facility] [address] [place] [address] PCP - General Internal Medicine 11/29/19 César Leiva MD [address] [facility] [address] [place] [address] Endocrinology 05/08/20 Josephine Salomon RN [address] [facility] [address] Specialty Blueprint Machine Operator Hematology/Oncology 03/04/22 Grace Bess MD [address] [facility] [place] [address] Physician Hematology/Oncology 03/04/22 Greta Wetzel PA-C [address] [place] [address] [place] [address] Physician Animal Daycare Provider Hematology/Oncology 03/04/[address] [facility] [address] Registered Dietitian Nutrition 06/07/23 Polysom Tech Relationship Specialty Start Date End Date Giovanni Salinas II, MD [address] [place] [address] [place] [address] PCP - General Internal Medicine 11/29/19 César Leiva MD [address] [place] [address] Endocrinology 05/08/20 Josephine Salomon RN [address] [facility] [address] Specialty Blueprint Machine Operator Hematology/Oncology 03/04/22 Grace Bess MD [address] [place] [address] [place] [address] Physician Hematology/Oncology 03/04/22 Greta Wetzel PA-C [address] [place] [address] [place] [address] Physician Animal Daycare Provider Hematology/Oncology 03/04/[address] [place] [address] [place] [address] Registered Dietitian Nutrition 06/07/23 Polysom Tech Relationship Specialty Start Date End Date Giovanni Salinas II, MD [address] [place] [place] [address] PCP - General Internal Medicine 11/29/19 César Leiva MD [address] [place] [address] Endocrinology 05/08/20 Josephine Slaomon RN [address] [facility] [address] Specialty Blueprint Machine Operator Hematology/Oncology 03/04/22 Greta Wetzel PA-C [address] [facility] [address] Physician Animal Daycare Provider Hematology/Oncology 03/04/[address] [facility] [address] Registered Dietitian Nutrition 06/07/23 Vivek Smith MD [address] [place] [address] [place] [address] Physician Hematology 12/11/23 Polysom Tech Relationship Specialty Start Date End Date Giovanni Salinas II, MD [address] [facility] [place] [address] [place] [address] PCP - General Internal Medicine 11/29/19 César Leiva MD [address] [facility] [address] [place] [address] Endocrinology 05/08/20 Josephine Salomon RN [address] [facility] [address] Specialty Blueprint Machine Operator Hematology/Oncology 03/04/22 Greta Wetzel PA-C [address] [facility] [address] Physician Animal Daycare Provider Hematology/Oncology 03/04/[address] [facility] [address] Registered Dietitian Nutrition 06/07/23 Vivek Smith MD [address] [place] [address] [place] [address] Physician Hematology 12/11/23 Polysom Tech Relationship Specialty Start Date End Date Giovanni Salinas II, MD [address] [place] [address] [place] [address] PCP - General Internal Medicine 11/29/19 César Leiva MD [address] [place] [address] Endocrinology 05/08/20 Josephine Salomon, RN [address] [facility] [address] Specialty Blueprint Machine Operator Hematology/Oncology 03/04/22 Greta Wetzel PA-C [address] [place] [address] [place] [address] Physician Animal Daycare Provider Hematology/Oncology 03/04/[address] [place] [address] [place] [address] Registered Dietitian Nutrition 06/07/23 Vivek Smith MD [address] [place] [address] [place] [address] Physician Hematology 12/11/23 Polysom Tech Relationship Specialty Start Date End Date Giovanni Salinas II, MD [address] [place] [address] [place] [address] PCP - General Internal Medicine 11/29/19 César Leiva MD [address] [place] [address] Endocrinology 05/08/20 Josephine Salomon RN [address] [facility] [address] Specialty Blueprint Machine Operator Hematology/Oncology 03/04/22 Greta Wetzel PA-C [address] [facility] [address] Physician Animal Daycare Provider Hematology/Oncology 03/04/[address] [facility] [address] Registered Dietitian Nutrition 06/07/23 Vivek Smith MD [address] [place] [address] [place] [address] Physician Hematology 12/11/23 Polysom Tech Relationship Specialty Start Date End Date Giovanni Salinas II, MD [address] [facility] [address] [place] [address] PCP - General Internal Medicine 11/29/19 César Leiva MD [address] [facility] [address] [place] [address] Endocrinology 05/08/20 Josephine Salomon RN [address] [facility] [address] Specialty Blueprint Machine Operator Hematology/Oncology 03/04/22 Greta Wetzel PA-C [address] [facility] [address] Physician Animal Daycare Provider Hematology/Oncology 03/04/[address] [facility] [address] Registered Dietitian Nutrition 06/07/23 Vivek Smith MD [address] [facility] [place] [address] Physician Hematology 12/11/23 Polysom Tech Relationship Specialty Start Date End Date Giovanni Salinas II, MD [address] [facility] [place] [address] [place] [address] PCP - General Internal Medicine 11/29/19 César Leiva MD [address] [place] [address] Endocrinology 05/08/20 Josephine Salomon RN [address] [facility] [place] [place] [address] Specialty Blueprint Machine Operator Hematology/Oncology 03/04/22 Greta Wetzel PA-C [address] [place] [address] [place] [address] Physician Animal Daycare Provider Hematology/Oncology 03/04/[address] [place] [address] [place] [address] Registered Dietitian Nutrition 06/07/23 Vivek Smith MD [address] [place] [address] [place] [address] Physician Hematology 12/11/23 Polysom Tech Relationship Specialty Start Date End Date Giovanni Salinas II, MD [address] [facility] [address] [place] [address] PCP - General Internal Medicine 11/29/19 César Leiva MD [address] [place] [address] Endocrinology 05/08/20 Josephine Salomon RN [address] [facility] [address] Specialty Blueprint Machine Operator Hematology/Oncology 03/04/22 Greta Wetzel PA-C [address] [facility] [address] Physician Animal Daycare Provider Hematology/Oncology 03/04/[address] [facility] [address] Registered Dietitian Nutrition 06/07/23 Vivek Smith MD [address] [place] [address] [place] [address] Physician Hematology 12/11/23 Polysom Tech Relationship Specialty Start Date End Date Giovanni Salinas II, MD [address] [facility] [place] [place] [address] PCP - General Internal Medicine 11/29/19 César Leiva MD [address] [facility] [address] [place] [address] Endocrinology 05/08/20 Josephine Salomon RN [address] [facility] [address] Specialty Blueprint Machine Operator Hematology/Oncology 03/04/22 Greta Wetzel PA-C [address] [facility] [address] Physician Animal Daycare Provider Hematology/Oncology 03/04/[address] [facility] [address] Registered Dietitian Nutrition 06/07/23 Vivek Smith MD [address] [facility] [place] [id number] Physician Hematology 12/11/23 Polysom Tech Relationship Specialty Start Date End Date Giovanni Salinas II, MD [address] [place] [address] [place] [address] PCP - General Internal Medicine 11/29/19 César Levia MD [address] [place] [address] Endocrinology 05/08/20 Josephine Salomon RN [address] [facility] [place] [place] [address] Specialty Blueprint Machine Operator Hematology/Oncology 03/04/22 Greta Wetzel PA-C [address] [facility] [address] [place] [id number] Physician Animal Daycare Provider Hematology/Oncology 03/04/[address] [facility] [address] [place] [id number] Registered Dietitian Nutrition 06/07/23 Vivek Smith MD [address] [facility] [place] [address] Physician Hematology 12/11/23 Polysom Tech Relationship Specialty Start Date End Date Giovanni Salinas II, MD [address] [place] [place] [address] PCP - General Internal Medicine 11/29/19 César Leiva MD [address] [place] [address] Endocrinology 05/08/20 Josephine Salomon RN [address] [place] [address] Specialty Blueprint Machine Operator Hematology/Oncology 03/04/22 Greta Wetzel PA-C [address] [facility] [address] Physician Animal Daycare Provider Hematology/Oncology 03/04/[address] [facility] [address] [place], [place] 5733370 Registered Dietitian Nutrition 06/07/23 Vivek Smith MD [address] [place] [address] [place] [address] Physician Hematology 12/11/23 Polysom Tech Relationship Specialty Start Date End Date Giovanni Salinas II, MD [address] [facility] [address] [place] [address] PCP - General Internal Medicine 11/29/19 César Leiva MD [address] [facility] [address] [place] [address] Endocrinology 05/08/20 Josephine Salomon RN [address] [facility] [address] Specialty Blueprint Machine Operator Hematology/Oncology 03/04/22 Greta Wetzel PA-C [address] [facility] [address] Physician Animal Daycare Provider Hematology/Oncology 03/04/[address] [facility] [address] Registered Dietitian Nutrition 06/07/23 Vivek Smith MD [address] [place] [address] [place] [address] Physician Hematology 12/11/23 Polysom Tech Relationship Specialty Start Date End Date Giovanni Salinas II, MD [address] [place] [place] [address] PCP - General Internal Medicine 11/29/19 César Leiva MD [address] [place] [address] Endocrinology 05/08/20 Josephine Salomon RN [address] [facility] [address] [place], [facility]70 Specialty Blueprint Machine Operator Hematology/Oncology 03/04/22 Greta Wetzel PA-C [address] [facility] [address] [place], [facility]70 Physician Animal Daycare Provider Hematology/Oncology 03/04/[address] [facility] [address] [place], [facility]70 Registered Dietitian Nutrition 06/07/23 Vivek Smith MD [address] [place] [address] [address] [place], [facility]70 Physician Hematology 12/11/23 Polysom Tech Relationship Specialty Start Date End Date Giovanni Salinas II, MD [address] [place] [place] [address] PCP - General Internal Medicine 11/29/19 César Leiva MD [address] [place] [address] Endocrinology 05/08/20 Josephine Salomon RN [address] [address] Specialty Blueprint Machine Operator Hematology/Oncology 03/04/22 Greta Wetzel PA-C [address] [place] [address] [place] [address] Physician Animal Daycare Provider Hematology/Oncology 03/04/[address] [facility] [address] Registered Dietitian Nutrition 06/07/23 Vivek Smith MD [address] [place] [address] [place] [address] Physician Hematology 12/11/23 Polysom Tech Relationship Specialty Start Date End Date Giovanni Salinas II, MD [address] [facility] [place] [place] [address] PCP - General Internal Medicine 11/29/19 César Leiva MD [facility] [place] [address] Endocrinology 05/08/20 Josephine Salomon, RN [address] [facility] [place] [address] Specialty Blueprint Machine Operator Hematology/Oncology 03/04/22 Grace Bess MD [address] [place] [address] [place] [address] Physician Hematology/Oncology 03/04/22 12/10/23 Greta Wetzel PA-C [address] [place] [address] [place] [address] Physician Animal Daycare Provider Hematology/Oncology 03/04/[address] [facility] [address] Registered Dietitian Nutrition 06/07/23 Polysom Tech Relationship Specialty Start Date End Date Giovanni Salinas II, MD [address] [facility] [address] [place] [address] PCP - General Internal Medicine 11/29/19 César Leiva MD [address] [place] [address] Endocrinology 05/08/20 Josephine Salomon, RN [address] [facility] [address] Specialty Blueprint Machine Operator Hematology/Oncology 03/04/22 Grace Bess MD [address] [place] [address] [place] [address] Physician Hematology/Oncology 03/04/22 12/10/23 Greta Wetzel PA-C [address] [place] [address] [place] [address] Physician Animal Daycare Provider Hematology/Oncology 03/04/[address] [place] [address] [place] [address] Registered Dietitian Nutrition 06/07/23 Polysom Tech Relationship Specialty Start Date End Date Giovanni Salinas II, MD [address] [facility] [address] [place] [address] PCP - General Internal Medicine 11/29/19 César Leiva MD [address] [place] [address] Endocrinology 05/08/20 Josephine Salomon RN [address] [facility] [place] [address] Specialty Blueprint Machine Operator Hematology/Oncology 03/04/22 Grace Bess MD [address] [facility] [place] [address] Physician Hematology/Oncology 03/04/22 12/10/23 Greta Wetzel PA-C [address] [place] [address] [place] [address] Physician Animal Daycare Provider Hematology/Oncology 03/04/[address] [place] [address] [place] [address] Registered Dietitian Nutrition 06/07/23 Polysom Tech Relationship Specialty Start Date End Date Giovanni Salinas II, MD [address] [facility] [address] [place] [address] PCP - General Internal Medicine 11/29/19 César Leiva MD [address] [facility] [address] [place] [address] Endocrinology 05/08/20 Josephine Salomon RN [address] [facility] [address] Specialty Blueprint Machine Operator Hematology/Oncology 03/04/22 Grace Bess MD [address] [facility] [place] [address] Physician Hematology/Oncology 03/04/22 12/10/23 Greta Wetzel PA-C [address] [place] [address] [place] [address] Physician Animal Daycare Provider Hematology/Oncology 03/04/22 Polysom Tech Relationship Specialty Start Date End Date Giovanni Salinas II, MD [address] [place] [address] PCP - General Internal Medicine 11/29/19 César Leiva MD [address] [place] [address] Endocrinology 05/08/20 Josephine Salomon, RN [address] [facility] [place] [address] Specialty Blueprint Machine Operator Hematology/Oncology 03/04/22 Grace Bess MD [address] [place] [address] Physician Hematology/Oncology 03/04/22 12/10/23 Greta Wetzel PA-C [address] [facility] [place] [address] Physician Animal Daycare Provider Hematology/Oncology 03/04/22 Polysom Tech Relationship Specialty Start Date End Date Giovanni Salinas II, MD [address] [facility] [address] [place] [address] PCP - General Internal Medicine 11/29/19 César Leiva MD [address] [place] [address] Endocrinology 05/08/20 Josephine Salomon, RN [address] [facility] [place] [address] Specialty Blueprint Machine Operator Hematology/Oncology 03/04/22 Grace Bess MD [address] [place] [address] Physician Hematology/Oncology 03/04/22 12/10/23 Greta Wetzel PA-C [address] [place] [address] [place] [address] Physician Animal Daycare Provider Hematology/Oncology 03/04/22 Polysom Tech Relationship Specialty Start Date End Date Giovanni Salinas II, MD [address] [facility] [address] [place] [address] PCP - General Internal Medicine 11/29/19 César Leiva MD [address] [place] [address] Endocrinology 05/08/20 Josephine Salomon RN [address] [facility] [place] [place] [address] Specialty Blueprint Machine Operator Hematology/Oncology 03/04/22 Grace Bess MD [address] [place] [address] [place] [address] Physician Hematology/Oncology 03/04/22 12/10/23 Greta Wetzel PA-C [address] [place] [address] [place] [address] Physician Animal Daycare Provider Hematology/Oncology 03/04/22 Polysom Tech Relationship Specialty Start Date End Date Giovanni Salinas II, MD [address] [facility] [address] [place] [address] PCP - General Internal Medicine 11/29/19 César Leiva MD [address] [place] [address] Endocrinology 05/08/20 Josephine Salomon RN [address] [facility] [address] Specialty Blueprint Machine Operator Hematology/Oncology 03/04/22 Greta Wetzel PA-C [address] [facility] [address] Physician Animal Daycare Provider Hematology/Oncology 03/04/[address] [facility] [address] Registered Dietitian Nutrition 06/07/23 Vivek Smith MD [address] [place] [address] [place] [address] Physician Hematology 12/11/23 Polysom Tech Relationship Specialty Start Date End Date Giovanni Salinas II, MD [address] [facility] [address] [place] [address] PCP - General Internal Medicine 11/29/19 César Leiva MD [address] [facility] [address] [place] [address] Endocrinology 05/08/20 Josephine Salomon RN [address] [facility] [address] Specialty Blueprint Machine Operator Hematology/Oncology 03/04/22 Grace Bess MD [address] [facility] [place] [address] Physician Hematology/Oncology 03/04/22 12/10/23 Greta Wetzel PA-C [address] [facility] [address] Physician Animal Daycare Provider Hematology/Oncology 03/04/22 Polysom Tech Relationship Specialty Start Date End Date Giovanni Salinas II, MD [address] [place] [place] [address] PCP - General Internal Medicine 11/29/19 César Leiva MD [address] [place] [address] Endocrinology 05/08/20 Polysom Tech Relationship Specialty Start Date End Date Giovanni Salinas MD [address] [place] [address] PCP - General Internal Medicine 10/20/22 Giovanni Salinas MD [address] [place] [address] PCP - ACO Reach 09/20/23Monday, JAUN Wilson [address] [place] [address] Licensed Practical Nurse Family Medicine 11/02/23 Polysom Tech Relationship Specialty Start Date End Date Giovanni Salinas II, MD [address] [place] [place] [address] PCP - General Internal Medicine 11/29/19 César Leiva MD [address] [place] [address] Endocrinology 05/08/20 Josephine Salomon RN [address] [place] [address] Specialty Blueprint Machine Operator Hematology/Oncology 03/04/22 Greta Wetzel PALaurenC [address] [place] [address] [place] [address] Physician Animal Daycare Provider Hematology/Oncology 03/04/[address] [place] [address] [place] [address] Registered Dietitian Nutrition 06/07/23 Vivek Smith MD [address] [place] [address] [place] [address] Physician Hematology 12/11/23 Polysom Tech Relationship Specialty Start Date End Date Giovanni Salinas II, MD [address] [facility] [address] [place] [address] PCP - General Internal Medicine 11/29/19 César Leiva MD [facility] [facility] [place] [id number] Endocrinology 05/08/20 Josephine Salomon, RN [address] [facility] [address] Specialty Blueprint Machine Operator Hematology/Oncology 03/04/22 Greta Wetzel, PALaurenC [address] [place] [address] [place] [address] Physician Animal Daycare Provider Hematology/Oncology 03/04/[address] [place] [address] [place] [address] Registered Dietitian Nutrition 06/07/23 Vivek Smith MD [address] [place] [address] [place] [address] Physician Hematology 12/11/23 Polysom Tech Relationship Specialty Start Date End Date Giovanni Salinas II, MD [address] [place] [address] PCP - General Internal Medicine 11/29/19 César Leiva MD [address] [address] [place] [address] Endocrinology 05/08/20 Josephine Salomon, LUIS ANTONIO [address] [facility] [address] [place], [facility] Specialty Blueprint Machine Operator Hematology/Oncology 03/04/22 Greta Wetzel, PA-C [address] [place] [address] [place] [address] Physician Animal Daycare Provider Hematology/Oncology 03/04/[address] [place] [address] [place] [address] Registered Dietitian Nutrition 06/07/23 Vivek Smith MD [address] [place] [address] [place] [address] Physician Hematology 12/11/23 Polysom Tech Relationship Specialty Start Date End Date Giovanni Salinas MD [address] [place] [address] PCP - General Internal Medicine 10/20/22 Giovanni Salinas MD [address] [place] [address] PCP - ACO Reach 09/20/23MondayKatie LPN [address] [place] [address] Licensed Practical Nurse Family Medicine 11/02/23 Polysom Tech Relationship Specialty Start Date End Date Giovanni Salinas II, MD [address] [place] [address] PCP - General Internal Medicine 11/29/19 César Leiva MD [address] [place] [address] Endocrinology 05/08/20 Josephine Salomon, RN [address] [facility] [place] [address] Specialty Blueprint Machine Operator Hematology/Oncology 03/04/22 Greta Wetzel PA-C [address] [facility] [address] Physician Animal Daycare Provider Hematology/Oncology 03/04/[address] [facility] [address] Registered Dietitian Nutrition 06/07/23 Vivek Smith MD [address] [facility] [address] Physician Hematology 12/11/23 Polysom Tech Relationship Specialty Start Date End Date Giovanni Salinas II, MD [address] [facility] [address] [place] [address] PCP - General Internal Medicine 11/29/19 César Leiva MD [address] [place] [address] Endocrinology 05/08/20 Josephine Salomon, RN [address] [facility] [place] [address] Specialty Blueprint Machine Operator Hematology/Oncology 03/04/22 Greta Wetzel PA-C [address] [facility] [address] Physician Animal Daycare Provider Hematology/Oncology 03/04/[address] [facility] [address] Registered Dietitian Nutrition 06/07/23 Vivek Smith MD [address] [place] [address] [place] [address] Physician Hematology 12/11/23 Polysom Tech Relationship Specialty Start Date End Date Giovanni Salinas II, MD [address] [facility] [address] [place] [address] PCP - General Internal Medicine 11/29/19 César Leiva MD [address] [facility] [address] [place] [address] Endocrinology 05/08/20 Josephine Salomon, RN [address] [facility] [address] Specialty Blueprint Machine Operator Hematology/Oncology 03/04/22 Greta Wetzel PA-C [address] [place] [address] [place] [address] Physician Animal Daycare Provider Hematology/Oncology 03/04/[address] [facility] [address] Registered Dietitian Nutrition 06/07/23 Vivek Smith MD [address] [facility] [address] Physician Hematology 12/11/23 Polysom Tech Relationship Specialty Start Date End Date Giovanni Salinas MD [address] [place] [address] PCP - General Internal Medicine 10/20/22 Giovanni Salinas MD [address] [facility] 110 [place] [address] PCP - ACO Reach 09/20/23MondayKatie LPN [address] [place] [address] Licensed Practical Nurse Family Medicine 11/02/23 Polysom Tech Relationship Specialty Start Date End Date Giovanni Salinas MD [address] [facility] [address] [place] [address] PCP - General Internal Medicine 10/20/22 Giovanni Salinas MD [address] [facility] [address] [place] [address] PCP - ACO Reach 09/20/23MondayKatie LPN [address] [facility] 110 [place] [address] Licensed Practical Nurse Family Medicine 11/02/23 Goals [...] BE BASED ON THE PRIMARY CLINICAL RECORDS. [id number]. provides no warranty or guarantee of the accuracy or completeness of information in this document.
--- NOTE | 2024-04-11 02:09 | XR_ITS ---
The [address] [address] Patient Name: TRINITY PERRY MRN: [id number] date: 1950 Sex: M Assigned Patient Location: ER Current Patient Location: ER Accession/Order Number: [id number] Exam Date: 04/11/2024 02:16 Report Date: 04/11/2024 02:48 At the request of: JACQUES PADILLA Procedure: XR chest 1V EXAM: XR chest 1V HISTORY: recheck NG placement COMPARISON: Chest radiograph dated 04/11/2024. TECHNIQUE: One view of the chest was obtained. FINDINGS: A left chest port a catheter is in place. A nasogastric tube terminates in the left upper quadrant, likely within the stomach. The cardiac silhouette is normal in size. Aortic atherosclerotic disease is seen. There are medial bibasilar opacities. There is no significant pneumothorax or pleural effusion. No acute osseous abnormality is seen. XR/XR chest 1V IMPRESSION: 1. A nasogastric tube terminates in the left upper quadrant, likely within the stomach. 2. Medial bibasilar opacities could represent atelectasis and/or aspiration changes. Electronically authenticated by: Zayda OKEEFE Date: 04/11/2024 02:48
[2024-04-11] MEDS: HYDROMORPHONE HCL 1 MG/ML CARTRIDGE IV ×2 (07:15→16:59)
[2024-04-11] MEDS: 0.9 % SODIUM CHLORIDE 1,000 ML 75 ML IV (09:02)
[2024-04-11] MEDS: DEXTROSE 5 %-0.45 % SOD CHLORD 1,000 ML 125 ML IV (19:12)
--- NOTE | 2024-04-11 19:24 | PC.NURSE ---
This nurse called for status update on pt transfer to [facility]. As of currently, pt is still waiting on a bed to open up. [facility] will call if bed becomes available and this nurse will check back towards end of shift if no updates by that time. Pt is still resting comfortably at this time and denies any current needs. Family updated and remains at bedside.
[2024-04-11] MEDS: HYDROMORPHONE HCL 0.5 MG/0.5 ML SYRINGE 1 MG IV (22:01)
[2024-04-12] VITALS (58 sets, daily range): BP systolic 94–114; BP diastolic 60–73; O2SAT 89–100
[2024-04-12] MEDS: DEXTROSE 5 %-0.45 % SOD CHLORD 1,000 ML 125 ML IV ×3 (01:44→16:15)
[2024-04-12] MEDS: BENZOCAINE/MENTHOL SORE THROAT LOZENGE 1 LOZENGE PO ×2 (04:17→06:13)
--- NOTE | 2024-04-12 05:57 | PC.NURSE ---
This nurse called [facility] transfer line to obtain update on status of pt bed. There is still no bed available for the patient at this time.
[2024-04-12 07:25] LABS: Basophils Percent Auto 0.1 % (0.2-2.0); Eosinophils Percent Auto 0.3 % (0.9-7.0); Hemoglobin 9.2 g/dL (14.0-18.0); Immature Granulocytes Abs Auto 0.04 10^3/uL (0.00-0.03); Immature Granulocytes Pct Auto 0.4 % (0.0-0.5); Lymphocytes Percent Auto 10.3 % (20.5-60.0); Mean Corpuscular HGB Conc 32.9 g/dL (29.9-35.2); Mean Corpuscular Hemoglobin 30.1 pg (25.9-34.0); Mean Corpuscular Volume 91.5 fL (80.0-94.0); Mean Platelet Volume 9.1 fL (9.5-13.5); Monocytes Absolute Auto 0.4 10^3/uL (0.3-0.8); Monocytes Percent Auto 4.2 % (1.7-12.0); Neutrophils Absolute Auto 8.3 10^3/uL (1.4-6.5); Neutrophils Percent Auto 84.7 % (43.0-75.0); Platelet Count 245 10^3/uL (150-450); Red Blood Count 3.06 10^6/uL (4.70-6.10); Red Cell Distribution Width 16.5 % (11.0-15.0); White Blood Count 9.8 10^3/uL (4.0-11.0)
[2024-04-12] MEDS: HYDROMORPHONE HCL 1 MG/ML CARTRIDGE IV ×2 (07:26→14:17)
[2024-04-12 07:36] LABS: Alanine Aminotransferase 21 U/L (16-63); Albumin Globulin Ratio 0.7; Albumin Level 2.1 g/dL (3.4-5.0); Alkaline Phosphatase 107 U/L (46-116); Anion Gap 10.4; Aspartate Amino Transferase 13 U/L (15-37); BUN Creatinine Ratio 12.9; Bilirubin Total 1.1 mg/dL (0.2-1.0); Carbon Dioxide 24.6 mmol/L (21.0-32.0); Chloride 99 mmol/L (98-107); Estimated GFR (African America >60 (>=60 mL/min/1.73m^2); Estimated GFR (Non-African Ame >60 (>=60 mL/min/1.73m^2); Globulin 2.9 g/dL; Glucose 181 mg/dL (74-106); Sodium 130 mmol/L (136-145)
[2024-04-12 07:38] LABS: Lactate/Lactic Acid 1.3 mmol/L (0.4-2.0)
--- NOTE | 2024-04-12 13:53 | PC.NURSE ---
Call placed to [facility] Transfer line to check on status, no beds available. Dr. Bee aware. Patient updated.
[2024-04-12] MEDS: HYDROMORPHONE HCL 0.5 MG/0.5 ML SYRINGE 1 MG IV (20:16)
--- NOTE | 2024-04-12 23:13 | PC.NURSE ---
i introduced myself to patient, and patient awake and alert lying supine on the bed watching tv, patient asked for ice chips, i gave some ice chip.this patient voices no concerns and shows no signs of distress
[2024-04-13] VITALS (38 sets, daily range): BP systolic 96–147; BP diastolic 63–86; PULSE 67–77; TEMP 36.6; O2SAT 93–99
[2024-04-13] MEDS: DEXTROSE 5 %-0.45 % SOD CHLORD 1,000 ML 125 ML IV ×3 (00:32→14:46)
[2024-04-13] MEDS: HYDROMORPHONE HCL 0.5 MG/0.5 ML SYRINGE 1 MG IV ×3 (02:52→15:57)
[2024-04-13] MEDS: BENZOCAINE/MENTHOL SORE THROAT LOZENGE 1 LOZENGE PO (13:04)
--- NOTE | 2024-04-13 16:28 | PC.NURSE ---
RN attempted to call report to number given by transfer line. [phone]. RN was transferred 4 times and was on hold for over 10 min. 1 nurse that information writer spoke to stated she was on the epilepsy floor. Pigment Grinder informed them that patient was assigned to 7 Bed 19. Pigment Grinder was then transferred and placed on hold again. After 10 minutes information writer hung up.
== END 2024-04-13 16:23 | disposition short-term general hospital (02) ==
PROVIDERS: Emergency Medicine; Nurse Practitioner Family; Emergency Provider Emergency Medicine; PCP Internal Medicine
DX: K56.609 Unspecified intestinal obstruction, unspecified as to partial versus complete obstruction (principal); C25.9 Malignant neoplasm of pancreas, unspecified; Z79.60 Long term (current) use of unspecified immunomodulators and immunosuppressants; Z90.410 Acquired total absence of pancreas; Z87.891 Personal history of nicotine dependence; N20.0 Calculus of kidney
CPT/HCPCS: 36415; 71045; 71260; 74177; 80053; 81003; 83605; 83690; 85025; 96361; 96374; 96375; 96376; 99285; J1171; J2270; J2405; Q9967

== ENCOUNTER 2024-12-20 12:32 | Outpatient (OUT) | payer MEDICARE, SELFPAY ==
--- NOTE | 2024-12-20 | XR_ITS ---
[address] [address] Patient Name: TRINITY PERRY MRN: [id number] date: 1950 Sex: M Assigned Patient Location: RAD Current Patient Location: [facility] Accession/Order Number: [id number] Exam Date: 12/20/2024 14:03 Report Date: 12/20/2024 14:03 At the request of: CRUZITO SPRINGER Procedure: XR chest 2V Chest 2 views CLINICAL HISTORY: COPD EXACERBATION J44.1, LUNG NODULES R91.8 COMPARISON: Chest 04/11/2024 FINDINGS: Left-sided port tip in the SVC. Heart is normal in size. Lungs are clear. No free air. XR/XR chest 2V IMPRESSION: NO ACUTE CARDIOPULMONARY ABNORMALITY. Impression dictated by: Ronnie Saldaña Jr., D.O. 12/20/2024 2:03 PM Dictation Location: [place] [address] Electronically authenticated by: [id number] Y Date: 12/20/2024 14:03
== END 2024-12-20 12:33 | disposition home or self-care (01) ==
LOC: RAD 12:35
PROVIDERS: PCP Internal Medicine; Visit Provider Internal Medicine
DX: R91.8 Other nonspecific abnormal finding of lung field (principal); J44.1 Chronic obstructive pulmonary disease with (acute) exacerbation; R06.00 Dyspnea, unspecified
CPT/HCPCS: 71046